=== PATIENT | female | born 1945 | race Caucasian/White ===

== ENCOUNTER → 2017-12-11 14:05 | Outpatient (CLI) | payer OTHER, SELFPAY ==
[2017-12-11 14:37] LABS: International Normalized Ratio 3.3; Prothrombin Time (Protime)PT. 33.5 SECONDS (11.7-14.9)
== END ==
PROVIDERS: Family Provider Internal Medicine; PCP Internal Medicine; Referring Provider Internal Medicine; Visit Provider Internal Medicine
DX: I74.9 Embolism and thrombosis of unspecified artery (principal)
CPT/HCPCS: 85610

== ENCOUNTER → 2017-12-17 11:11 | Outpatient (CLI) | payer MEDICARE, SELFPAY ==
[2017-12-17 12:35] LABS: Prothrombin Time (Protime)PT. 43.6 SECONDS (11.7-14.9)
[2017-12-17 12:43] LABS: International Normalized Ratio 4.6
== END ==
PROVIDERS: Family Provider Internal Medicine; PCP Internal Medicine; Referring Provider Internal Medicine; Visit Provider Internal Medicine
DX: I74.9 Embolism and thrombosis of unspecified artery (principal)
CPT/HCPCS: 85610

== ENCOUNTER → 2017-12-21 16:08 | Outpatient (CLI) | payer MEDICARE, SELFPAY ==
[2017-12-21 16:51] LABS: International Normalized Ratio 1.9
== END ==
PROVIDERS: Family Provider Internal Medicine; PCP Internal Medicine; Referring Provider Internal Medicine; Visit Provider Internal Medicine
DX: I74.9 Embolism and thrombosis of unspecified artery (principal)
CPT/HCPCS: 85610

== ENCOUNTER → 2018-09-10 | Outpatient (CLI) | payer MEDICARE, SELFPAY ==
[2018-09-10 13:00] LABS: International Normalized Ratio 2.2; Prothrombin Time (Protime)PT. 24.8 SECONDS (11.7-14.9)
== END | disposition home or self-care (01) ==
LOC: LABSPEC 12:14
PROVIDERS: Family Provider Internal Medicine; PCP Internal Medicine; Referring Provider Clinical Nurse Specialist; Visit Provider Clinical Nurse Specialist
DX: I74.9 Embolism and thrombosis of unspecified artery (principal)
CPT/HCPCS: 85610

== ENCOUNTER → 2021-07-07 | Outpatient (CLI) | payer MEDICARE, SELFPAY ==
[2021-07-07 10:21] LABS: International Normalized Ratio 1.7; Prothrombin Time (Protime)PT. 19.5 SECONDS (11.7-14.9)
== END | disposition home or self-care (01) ==
LOC: LABSPEC 09:33
PROVIDERS: PCP Internal Medicine; Visit Provider Internal Medicine
DX: Z86.718 Personal history of other venous thrombosis and embolism (principal)
CPT/HCPCS: 85610

== ENCOUNTER 2023-03-19 10:05 | Emergency (ER) | payer MEDICARE, SELFPAY ==
[2023-03-19 10:07] VITALS: BP 103/59; PULSE 111; RESP 16; TEMP 36.8; O2SAT 100; BMI 20.3
--- NOTE | 2023-03-19 10:37 | EX.ED.DYSGE1 ---
HPI History of Present Illness Chief Complaint: Cough Informant: patient Onset/Context/Timing Onset: Today Context: Sudden Onset Quality: Bright red Location: Sputum Worsened by: Nothing Relieved by: Cough drops Narrative Narrative: Patient presents with hemoptysis that began today. Patient states she has had a cough for the past 2 months but today she noted some blood in her sputum. Patient states it was bright red. Patient states it is approximately 1 tablespoon. Patient states it has been constant. Patient states that she has also had a sore throat for the past several days. Patient states this improves with taking cough drops. Patient states nothing makes her symptoms any worse. Patient denies any fevers or chills. Patient states she has a history of histoplasmosis. [facility] Medical History (Updated 03/19/23 @ 15:[address] Bob Elias, ) Histoplasmosis Pulmonary embolism Home Medications adalimumab 40 mg/0.4 mL subcutaneous pen kit (Humira(CF) Pen) mg subcut 03/19/23 [History Last Taken Unknown] albuterol sulfate 90 mcg/actuation aerosol inhaler inhalation 03/19/23 [History Last Taken Unknown] budesonide-formoterol HFA 160 mcg-4.5 mcg/actuation aerosol inhaler (Symbicort) inhalation 03/19/23 [History Last Taken Unknown] fluticasone propionate 50 mcg/actuation nasal spray,suspension intranasal 03/19/23 [History Last Taken Unknown] gabapentin 300 mg capsule 300 mg PO Q12H 03/19/23 [History Last Taken Unknown] irbesartan 150 mg-hydrochlorothiazide 12.5 mg tablet 1 tab PO DAILY 03/19/23 [History Last Taken Unknown] itraconazole 100 mg capsule mg 03/19/23 [History Last Taken Unknown] naproxen 500 mg tablet 500 mg PO Q12H 03/19/23 [History Last Taken Unknown] pantoprazole 40 mg tablet,delayed release 40 mg PO DAILY 03/19/23 [History Last Taken Unknown] tiotropium bromide 2.5 mcg/actuation mist for inhalation (Spiriva Respimat) inhalation 03/19/23 [History Last Taken Unknown] warfarin 5 mg tablet mg 03/19/23 [History Last Taken Unknown] Allergy/AdvReac Type Severity Reaction Status Date / Time Penicillins Allergy Severe Anaphylaxis Verified 03/19/23 10:10 Surgical History (Updated 03/19/23 @ 11:[address] Bob Elias DO) Hx of foot surgery Social History Smoking Status: Never smoker ROS ROS ED Constitutional Constitutional ED: Denies chills or fever(s) Eyes Eyes: Denies blurry vision or change in vision ENT ENT ED: Reports sore throat; Denies rhinorrhea Cardiovascular Cardiovascular: Denies chest pain or palpitations Respiratory/Chest Respiratory/Chest: Reports cough and sputum; Denies dyspnea Gastrointestinal Gastrointestinal: Denies nausea or vomiting Genitourinary Genitourinary ED: Denies dysuria or hematuria Musculoskeletal Musculoskeletal: Denies back pain or neck pain Integumentary Denies abscess or rash Neurologic Neurologic: Denies headache(s) or weakness Allergic/Immunologic Allergic/Immunologic ED: Denies mouth swelling or urticaria EXAM Physical Exam Const Vital Signs: 03/19/23 10:07 03/19/23 10:06 03/19/23 13:22 Temperature 98.3 F Temperature Source Temporal Pulse Rate 111 H Respiratory Rate 16 Respiratory Effort Normal Respiratory Depth Normal Respiratory Pattern Normal Blood Pressure 103/59 L 102/74 Blood Pressure Mean 73 83 Pulse Ox 100 Oxygen Delivery Method Room Air Room Air Positive well nourished and well developed General Appearance ED: well developed and NAD HEENT Reports moist mucous membranes Neck supple and no JVD Resp normal respiratory effort and clear to auscultation bilaterally Cardio regular rate and regular rhythm GI non-tender and non-distended Palpation: soft Neuro oriented x3, CN's II-XII intact bilaterally and no sensory deficits noted Sensorium / Orientation: alert Motor Exam: strength 5/5 throughout Psych mental status grossly normal MDM MDM MDM Narrative Medical decision making narrative: Differential diagnosis includes pulmonary embolism, lung mass, pneumonia, pneumothorax, viral infection, and coagulopathy. CBC will be obtained to assess for leukocytosis and anemia. Basic metabolic profile will be obtained to assess for electrolyte abnormality and renal function. CTA of the chest will be obtained to assess for pulmonary embolism and lung mass. PT with INR and PTT will be obtained to assess for coagulopathy. Lab Data Attestation: I reviewed the patient's lab results. Lab results narrative: CBC was reviewed. Hemoglobin is 9.0 and hematocrit was 27.7. Platelets were slightly low at 145. Basic metabolic profile was reviewed. Sodium was slightly low at 130. BUN was slightly elevated at 34. Creatinine was normal. PT with INR and PTT were reviewed. Pro time was 78 and INR is 9.4. PTT was 109.6. COVID-19 PCR was reviewed and was positive. Influenza PCR was reviewed and was negative for influenza A and influenza B. RSV PCR was reviewed and was negative. Labs: Laboratory Results - last 24 hr 03/19/23 11:25 WBC 6.4 RBC 3.40 L Hgb 9.0 L Hct 27.7 L MCV 81.5 MCH 26.5 L MCHC 32.5 RDW Std Deviation 48.3 H RDW Coeff of Catarino 16.3 H Plt Count 145 L MPV 10.3 Immature Gran % (Auto) 1.600 H Neut % (Auto) 68.8 Lymph % (Auto) 15.1 L [place] % (Auto) 10.9 H Eos % (Auto) 2.5 Baso % (Auto) 1.1 H Absolute Neuts (auto) 4.4 Absolute Lymphs (auto) 0.97 Nucleated RBC % 0 PT 78.0 H INR 9.4 H* APTT 109.6 H* Sodium 130 L Potassium 4.5 Chloride 100 Carbon Dioxide 26.0 Anion Gap 4 L BUN 34 H Creatinine 0.95 Estim Creat Clear Calc 44.81 Est GFR (MDRD) Af Amer 73 Est GFR (MDRD) Non-Af 61 BUN/Creatinine Ratio 35.7 H Glucose 89 Calcium 9.1 Radiography Diagnostic Testing: Clinical Impression(s) from Imaging Studies Chest CTA 03/19/23 11:06 IMPRESSION: Prominent reticular nodular pattern in both lungs worse in the upper lobes with left lower lobe and right upper lobe pulmonary nodule. Lymphangitic spread should be ruled out. No evidence of pulmonary embolism. Small amount of free intraperitoneal air. A dedicated CT scan of the pelvis recommended for further evaluation. Electronically Signed: Geo Ni MD at 12:39 EST , Abdomen/Pelvis CT 03/19/23 12:45 IMPRESSION: Abnormal appearance of the transverse colon as described with evidence of pneumatosis in the wall of the colon especially along its proximal portion in the region of the hepatic flexure. An inflammatory process versus a possible vascular compromise should be ruled out. Free intraperitoneal air. Sigmoid diverticulosis with mild degree inflammatory changes in the sigmoid mesocolon. Sludge and possible tiny gallstones in the gallbladder lumen. Electronically Signed: Geo Ni MD at 13:47 EST , CTA of the chest was obtained. There is a diffuse reticular nodular pattern in both lungs. There is no evidence of pulmonary embolism noted. There is a small amount of free intraperitoneal air noted. This was interpreted by the radiologist and was also independently reviewed by myself. Because of the free air noted on the CT scan of the chest, CT scan of the abdomen and pelvis was obtained. There is abnormal appearance of the transverse colon with evidence of pneumatosis in the wall of the colon especially at the hepatic flexure. There is free intraperitoneal air noted. There is sigmoid diverticulosis with mild inflammatory changes. There is sludge and a possible small gallstone in the gallbladder lumen. This was interpreted by the radiologist was also dependently reviewed by myself. Treatment and Re-Evaluation :: Patient was advised of her findings. Patient was given a dose of vitamin K prior to CT results. Patient was started on meropenem. Case was discussed with Dr. Camacho from general surgery. He recommended transferring the patient because of the elevated INR and limitations of blood bank resources here. Patient requested transfer to [facility]. Transfer line was contacted. Case was discussed with Dr. Lugo at [facility]. He accepted the patient and requested patient be transferred to the emergency department there. Case was discussed with emergency department physician. He accepted the patient to be transferred there. Patient was ordered type and screen. Patient was also ordered a unit of fresh frozen plasma. Patient will be transferred to [facility]. Patient and family understood and were agreeable with the plan. All questions were answered. Critical Care Time Critical Care Time: Yes Critical care time (excluding procedures): 30-74 minutes (38), Including time spent:, Discussing w/Patient &/or Family/Network Engineer Administrator, Discussing w/Consultants, Arranging Admission or Transfer and Performing Direct Patient Care at Bedside Discharge Plan Triage Chief Complaint: Cough ED Provider: Bob Elias Dx/Rx/DC Orders Clinical Impression: COVID-19, Coagulopathy, Colitis, Bowel perforation Prescriptions: No Action gabapentin 300 mg capsule 300 mg PO Q12H albuterol sulfate 90 mcg/actuation HFA aerosol inhaler INHALATION fluticasone propionate 50 mcg/actuation spray,suspension INTRANASAL budesonide-formoterol [Symbicort] 160-4.5 mcg/actuation HFA aerosol inhaler INHALATION Humira(CF) Pen 40 mg/0.4 mL pen injector kit SUBCUT irbesartan-hydrochlorothiazide 150-12.5 mg tablet 1 tab PO DAILY itraconazole 100 mg capsule naproxen 500 mg tablet 500 mg PO Q12H pantoprazole 40 mg tablet,delayed release (DR/EC) 40 mg PO DAILY warfarin 5 mg tablet Spiriva Respimat 2.5 mcg/actuation mist INHALATION Primary Care Provider: Deyanira Pak Referrals: Deyanira Pak MD [Primary Care Provider] - Disposition Disposition: Acute Care Hospital Discharge Location: [facility] [place] [facility]
--- NOTE | 2023-03-19 11:06 | CT_ITS ---
STUDY: CTA CHEST REASON FOR EXAM: Female, 77 years old. Hemoptysis. Sore throat. Six-week history of hoarseness. History of histoplasmosis. RADIATION DOSAGE (If Supplied By Facility): CTDIvol = ( 4.21 ) mGy, DLP = ( 263.59 ) mGycm TECHNIQUE: The examination was performed with the intravenous administration of IV 75mL [id number]. Post-processing of the angiographic images was performed, with multiplanar reformation and 3D reconstruction. Individualized dose optimization techniques were used for this CT. COMPARISON: None. FINDINGS: Normal enhancement of the main pulmonary artery and right and left pulmonary arteries. Normal enhancement of the bilateral peripheral pulmonary arteries. There is no demonstrated pulmonary embolism. Normal thoracic aorta and visualized great vessels. There is no demonstrated aortic dissection. There are calcifications of the coronary arteries. Normal mediastinum. Normal hilar regions. Normal visualized trachea and bronchi. The lungs are well expanded. There is a 1.1 cm PICC line nodule in the peripheral lateral aspect of the left lower lobe as seen on axial image #82. There is a 5.7 mm noncalcified nodule in the anterior aspect of the right lung apex as seen on axial image #197. There is evidence of a prominent reticular nodular pattern in both lungs worse in the upper lobes. Normal chest wall structures. There are degenerative changes of thoracic spine. Moderate splenomegaly. Small amount of free intraperitoneal air. Correlation with a dedicated CT scan of the abdomen and pelvis is recommended for further evaluation. Moderate splenomegaly. CT/CTA Chest W/WO Contrast IMPRESSION: Prominent reticular nodular pattern in both lungs worse in the upper lobes with left lower lobe and right upper lobe pulmonary nodule. Lymphangitic spread should be ruled out. No evidence of pulmonary embolism. Small amount of free intraperitoneal air. A dedicated CT scan of the pelvis recommended for further evaluation. Electronically Signed: Geo Ni MD at 12:39 EST ,
[2023-03-19] MEDS: 0.9% Normal Saline (1000mL) 1,000 ML 1000 ML IV (11:27)
[2023-03-19 11:37] LABS: Absolute Lymphocyte Count 0.97 X10^3/uL (0.83-4.51); Absolute Neutrophil Count 4.4 X10^3/uL (2.0-7.7); Basophil# 0.07 X10^3/uL; Basophil% 1.1 % (0-1); Eosinophil# 0.16 X10^3/uL; Eosinophils% 2.5 % (0-5); Hematocrit 27.7 % (37-47); Lymphocyte # 0.97 X10^3/ul (0.83-4.51); Lymphocyte % 15.1 % (19-41); Mean Corp Hgb Conc 32.5 g/dL (32-36); Mean Corpuscular Hgb 26.5 pg (27.0-32.0); Mean Corpuscular Volume 81.5 fL (81-99); Mean Platelet Vol. 10.3 fl (6.2-12.0); Monocyte% 10.9 % (0-10); NRBC Flagged by Analyzer 0 % (0-5); Neutrophil # 4.43 X10^3/uL (2.7-7.7); Neutrophil % 68.8 % (47-70); Platelet Count 145 K/mm3 (150-450); RBC Distribution Width CV 16.3 % (11.6-14.6); RBC Distribution Width SD 48.3 fl (35.1-43.9); White Blood Count 6.4 K/mm3 (4.4-11.0)
[2023-03-19 12:00] LABS: Anion Gap 4 (5-15); BUN 34 mg/dL (7-18); BUN/Creat Ratio 35.7 RATIO (10-20); Calcium,Total 9.1 mg/dL (8.5-10.1); Chloride 100 mmol/L (98-107); Creatinine, Serum 0.95 mg/dL (0.55-1.02); EST Glomerular Filtration Rate 61 mL/min (>60); Est Glom Filt Rate - Afr Amer 73 mL/min (>60); Estimated Creatinine Clearance 44.81 ml/min; Glucose 89 mg/dL (74-106); Potassium 4.5 mmol/L (3.5-5.1); Sodium Level 130 mmol/L (136-145)
[2023-03-19 12:01] LABS: International Normalized Ratio 9.4; Partial Thromboplast Time 109.6 Seconds (24.1-36.2)
--- OUTSIDE RECORDS SUMMARY | 2023-03-19 12:26 | XMS RPT_ITS | CCD ---
Author Name Unknown Address [address] [place] [address] Organization [facility] Care Team Providers Care Yard Inspector Name Role Phone Mykel Santamaria Unavailable Unavailable Mykel Santamaria Unavailable Unavailable UNKNOWN, REFERR Unavailable Unavailable Will Hurley Attending Unavailable PROVIDER, UNKNOWN Referring Unavailable No, PCP Primary Care Unavailable Claudine Durán MD Primary Care Provider Will Hurley Unavailable Gold Colón RN Unavailable UnavailClaudine Cannon MD Primary Care Provider Will Hurley Unavailable Katarzyna MITCHELL, Gold M Unavailable UnavailWill Vaz Unavailable [phone] Rachel MITCHELL, Lulú Unavailable Gold Colón RN M Unavailable UnavailClaudine Cannon MD Primary Care Provider Will Hurley Unavailable [phone] Rachel RN, Lulú Unavailable Rachel RN, Lulú Unavailable Paul RN, Ilda Unavailable Kvmalena RN, Ilda Unavailable Rachel RN, Lulú Unavailable ADRI ZARAGOZA Referring Unavailable LUIZ DURÁNA Adam Primary Care Unavailable FLORENCE TERRY Referring Unavailable CLAUDINE DURÁN Primary Care Unavailable FLORENCE TERRY Referring Unavailable FLORENCE TERRY Attending Unavailable TALAMPAS, CLAUDINE D Primary Care Unavailable TALAMPAS, CLAUDINE D Primary Care Unavailable TALAMPAS, CLAUDINE D Primary Care Unavailable TALAMPAS, CLAUDINE D Primary Care Unavailable TALAMPAS, CLAUDINE D Primary Care Unavailable TALAMPAS, CLAUDINE D Primary Care Unavailable CARIASTRINAI Referring Unavailable TALAMPAS, CLAUDINE D Primary Care Unavailable TALAMPAS, CLAUDINE D Primary Care Unavailable TALAMPAS, CLAUDINE D Primary Care Unavailable TALAMPAS, CLAUDINE D Primary Care Unavailable TALAMPAS, CLAUDINE D Primary Care Unavailable TALAMPAS, CLAUDINE D Primary Care Unavailable TALAMPAS, CLAUDINE D Primary Care Unavailable CARIASTRINAI Attending Unavailable TALAMPAS, CLAUDINE D Primary Care Unavailable TALAMPAS, CLAUDINE D Primary Care Unavailable FLORENCE TERRY Referring Unavailable TALAMPAS, CLAUDINE D Primary Care Unavailable CARIASJIMBO Attending Unavailable TALAMPAS, CLAUDINE D Primary Care Unavailable TALAMPAS, CLAUDINE D Primary Care Unavailable TALAMPAS, CLAUDINE D Primary Care Unavailable FLORENCE TERRY Attending Unavailable TALAMPAS, CLAUDINE D Primary Care Unavailable ROQUE ZACARIAS Referring Unavailable TALAMPAS, CLAUDINE D Primary Care Unavailable TALAMPAS, CLAUDINE D Primary Care Unavailable TALAMPAS, CLAUDINE D Primary Care Unavailable TALAMPAS, CLAUDINE D Primary Care Unavailable JEANA SOMMERS Referring Unavailable RON BELL Attending Unavailable TALAMPAS, CLAUDINE D Primary Care Unavailable RACHELLE LAI Attending Unavailable TALAMPAS, CLAUDINE D Primary Care Unavailable TALAMPAS, CLAUDINE D Primary Care Unavailable TALAMPAS, CLAUDINE D Primary Care Unavailable TALAMPAS, CLAUDINE D Primary Care Unavailable JOHANNA BENITES Referring Unavailable TALAMPAS, CLAUDINE D Primary Care Unavailable FLORENCE TERRY Referring Unavailable JOHANNA BENITES Attending Unavailable TALAMPAS, CLAUDINE D Primary Care Unavailable TALAMPAS, CLAUDINE D Primary Care Unavailable TALAMPAS, CLAUDINE D Primary Care Unavailable TALAMPAS, CLAUDINE D Primary Care Unavailable CARIAS, JIMBO Attending Unavailable TALAMPAS, CLAUDINE D Primary Care Unavailable TALAMPAS, CLAUDINE D Primary Care Unavailable CARIAS, JIMBO Referring Unavailable TALAMPAS, CLAUDINE D Primary Care Unavailable TALAMPAS, CLAUDINE D Primary Care Unavailable RACHELLE LAI Referring Unavailable CLAUDINE DURÁN Primary Care Unavailable CLAUDINE DURÁN Primary Care Unavailable Allergies Allergy Classification Reported Allergen(s) Allergy Type Date of Onset Reaction(s) Facility (20 sources) Penicillins; Translations: [PENICILLINS] Propensity to adverse reactions (disorder) [address] [place] [address] Repository Medications Current Medications Medication Drug Class(es) Dates Sig (Normalized) Sig (Original) doxycycline hyclate 100 mg oral tablet (4 sources) Tetracycline-clas s Drug Start: 02-07-2023 End: 02-17-2023 take 1 tablet by mouth twice daily doxycycline (VIBRA-TABS) 100 mg tablet Take 1 tablet by mouth two times a day for 10 days. 20 tablet 0 02/07/2023 02/17/2023 Active Completed/Discontinued Medications Medication Drug Class(es) Dates Sig (Normalized) Sig (Original) 0.8 ml adalimumab 50 mg/ml auto-injector (20 sources) Tumor Necrosis Factor [place] Start: 03-20-2017 HUMIRA PEN 40 mg/0.8 mL pnkt Inject 40 mg subcutaneously. Every other week. 0 03/20/2017 Active Problems Active Problems Problem Classification Problem Date Documented Date Episodic/Chronic Acquired foot deformities (5 sources) Hammer toe; Translations: [Other hammer toe(s) (acquired), left foot] Chronic Acute cerebrovascular disease (3 sources) Subdural hemorrhage; Translations: [Subdural hemorrhage] Onset: 10-02-2014 Chronic Aortic and peripheral arterial embolism or thrombosis (15 sources) Vascular disorder; Translations: [Embolism and thrombosis of unspecified artery] Onset: 11-23-2006 01-02-2017 Chronic Cardiac and circulatory congenital anomalies (20 sources) Aortic valve stenosis; Translations: [Congenital stenosis of aortic valve] Onset: 04-26-2018 04-26-2018 Chronic Chronic obstructive pulmonary disease and bronchiectasis (20 sources) Bronchiectasis; Translations: [Bronchiectasis, uncomplicated] Onset: 04-26-2019 04-26-2019 Chronic Chronic ulcer of skin (20 sources) Ulcer of toe; Translations: [Non-pressure chronic ulcer of other part of left foot limited to breakdown of skin] Onset: 07-11-2022 Chronic Deficiency and other anemia (20 sources) Iron deficiency anemia due to blood loss; Translations: [Iron deficiency anemia secondary to blood loss (chronic)] Onset: 01-24-2018 01-24-2018 Chronic Deficiency and other anemia (1 source) Anemia, unspecified; Translations: [Relative anemia] Onset: 01-04-2023 Episodic Disorders of lipid metabolism (1 source) Raised low density lipoprotein cholesterol; Translations: [Pure hypercholesterolemia, unspecified] Chronic Esophageal disorders (20 sources) Gastroesophageal reflux disease; Translations: [Gastro-esophageal reflux disease without esophagitis] Onset: 03-06-2005 03-06-2005 Chronic Essential hypertension (20 sources) Essential hypertension; Translations: [Essential (primary) hypertension] Onset: 03-07-2015 03-07-2015 Chronic Gout and other crystal arthropathies (2 sources) Calcium pyrophosphate deposition disease; Translations: [Other chondrocalcinosis, unspecified site] Chronic Menopausal disorders (20 sources) Atrophic vaginitis; Translations: [Postmenopausal atrophic vaginitis] Onset: 03-06-2013 03-06-2013 Chronic Osteoporosis (1 source) Senile osteoporosis; 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 without current pathological fracture] 11-09-2022 Chronic Other infections; including parasitic (1 source) Personal history of other infectious and parasitic diseases; Translations: [History of COVID-19] Episodic Other liver diseases (1 source) Abnormal levels of other serum enzymes; Translations: [Acid phosphatase elevated] Onset: 02-02-2023 Episodic Other lower respiratory disease (2 sources) Cough; Translations: [Cough] Episodic Other lower respiratory disease (4 sources) Multiple nodules of lung; Translations: [Other nonspecific abnormal finding of lung field] Episodic Other nervous system disorders (20 sources) Meralgia paresthetica; Translations: [Meralgia paresthetica, unspecified lower limb] Onset: 03-06-2005 03-06-2005 Chronic Other non-traumatic joint disorders (20 sources) Arthropathy; Translations: [Arthropathy, unspecified] Onset: 12-05-2006 12-05-2006 Chronic Other non-traumatic joint disorders (2 sources) Effusion, right wrist; Translations: [Effusion, right wrist] Onset: 02-28-2018 Episodic Other non-traumatic joint disorders (2 sources) Hip pain; Translations: [Pain in left hip] 10-27-2022 Episodic Other screening for suspected conditions (not mental disorders or infectious disease) (1 source) Abnormal findings on diagnostic imaging of other specified body structures; Translations: [Abnormal CT of the chest] Onset: 03-08-2023 Chronic Other skin disorders (1 source) Dystrophia unguium; Translations: [Nail dystrophy] Episodic Other upper respiratory disease (1 source) Bronchospasm; Translations: [Acute bronchospasm] Episodic Other upper respiratory infections (1 source) Chronic sinusitis; Translations: [Chronic sinusitis, unspecified] Chronic Retinal detachments; defects; vascular occlusion; and retinopathy (1 source) Nonexudative age-related macular degeneration; Translations: [Nonexudative age-related macular degeneration, bilateral, early dry stage] Chronic Rheumatoid arthritis and related disease (20 sources) Rheumatoid arthritis of multiple joints; Translations: [Rheumatoid arthritis with rheumatoid factor of multiple sites without organ or systems involvement] Onset: 03-07-2015 06-06-2016 Chronic Skin and subcutaneous tissue infections (1 source) Infection of toe ; Translations: [Local infection of the skin and subcutaneous tissue, unspecified] Episodic Spondylosis; intervertebral disc disorders; other back problems (20 sources) Herniation of nucleus pulposus of lumbar intervertebral disc; Translations: [Other intervertebral disc displacement, lumbar region] Onset: 03-20-2011 03-20-2011 Chronic Unclassified (1 source) Acute cough; Translations: [Acute cough] Onset: 02-07-2023 Viral infection (1 source) Verruca vulgaris; Translations: [Other viral warts] Episodic Past or Other Problems Problem Classification Problem Date Documented Da te Episodic/Chronic Immunizations and screening for infectious disease (2 sources) Vaccination needed; Translations: [Encounter for immunization] Onset: 10-27-2022 Episodic Mycoses (20 sources) Histoplasmosis; Translations: [Histoplasmosis, unspecified] Onset: 03-02-2018 03-03-2018 Episodic Other acquired deformities (20 sources) Lumbar spondylolisthesis; Translations: [Spondylolisthesis, lumbar region] Onset: 07-30-2017 07-30-2017 Episodic Other aftercare (20 sources) Long-term current use of anticoagulant; Translations: [joint terminal attack controller (current) use of 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] Onset: 04-01-2009 12-10-2014 Episodic Other aftercare (1 source) joint terminal attack controller (current) use of 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; Translations: [Chronic anticoagulation] Onset: 07-11-2022 Episodic Other connective tissue disease (7 sources) Enthesopathy of hip region; Translations: [Other specified enthesopathies of unspecified lower limb, excluding foot] Onset: 01-04-2009 01-04-2009 Episodic Other connective tissue disease (20 sources) Ganglion cyst; Translations: [Ganglion, unspecified site] Onset: 08-17-2014 08-17-2014 Episodic Other liver diseases (20 sources) Elevated liver enzymes level; Translations: [Abnormal levels of other serum enzymes] Onset: 04-01-2009 04-01-2009 Episodic Other lower respiratory disease (20 sources) Nodule of lung; Translations: [Solitary pulmonary nodule] Onset: 03-11-2019 03-11-2019 Episodic Other lower respiratory disease (1 source) Other nonspecific abnormal finding of lung field; Translations: [Lung nodules] Onset: 07-20-2022 Episodic Other non-traumatic joint disorders (20 sources) Pain in right hip joint; Translations: [Pain in right hip] Onset: 05-05-2016 05-05-2016 Episodic Other non-traumatic joint disorders (1 source) Pain in left hip; Translations: [Hip pain, acute, left] Onset: 11-09-2022 Episodic Other screening for suspected conditions (not mental disorders or infectious disease) (10 sources) Patient encounter status; Translations: [Encounter for screening mammogram for malignant neoplasm of breast] Onset: 04-14-2022 Episodic Other upper respiratory disease (20 sources) Voice finding; Translations: [Other voice and resonance disorders] Onset: 03-06-2005 03-06-2005 Episodic Other upper respiratory disease (1 source) Acute bronchospasm; Translations: [Cough due to bronchospasm] Onset: 07-11-2022 Episodic Phlebitis; thrombophlebitis and thromboembolism (20 sources) History of recurrent deep vein thrombosis; Translations: [Personal history of other venous thrombosis and embolism] Onset: 10-29-2016 10-29-2016 Episodic Spondylosis; intervertebral disc disorders; other back problems (20 sources) Lumbago co-occurrent with right-side sciatica; Translations: [Lumbago with sciatica, right side] Onset: 05-05-2016 05-05-2016 Episodic Results Test Name Value Interpretation Reference Range Facil ity Vital Signs Date Time Vital Sign Value Performing Clinician Faci lity 12-20-2023 10:36-0500 Body temperature 98.6 [degF] Adri Callow NEEDLE BAR MOLDER.CHUTE PULLER Work Phone: [facility] 02-07-2023 10:36-0500 Body weight 59.69 kg Adri Callow NEEDLE BAR MOLDER.CHUTE PULLER Work Phone: [facility] 02-07-2023 10:36-0500 Diastolic blood pressure 82 mm[Hg] Adri Callow NEEDLE BAR MOLDER.CHUTE PULLER Work Phone: [facility] 02-07-2023 10:36-0500 Heart rate 87 /min Adri Callow NEEDLE BAR MOLDER.CHUTE PULLER Work Phone: [facility] 02-07-2023 10:36-0500 Respiratory rate 18 /min Adri Callow NEEDLE BAR MOLDER.CHUTE PULLER Work Phone: [facility] 02-07-2023 10:36-0500 SaO2% (BldA) [Mass fraction] 98 % Adri Callow NEEDLE BAR MOLDER.CHUTE PULLER Work Phone: [facility] 02-07-2023 10:36-0500 Systolic blood pressure 134 mm[Hg] Adri Callow NEEDLE BAR MOLDER.CHUTE PULLER Work Phone: [facility] 01-04-2023 10:33-0500 Body weight 58.06 kg Jimbo Carias NEEDLE BAR MOLDER.TROLLEY CAR OPERATOR Work Phone: [facility] 01-04-2023 10:33-0500 Diastolic blood pressure 75 mm[Hg] Jimbo Carias NEEDLE BAR MOLDER.TROLLEY CAR OPERATOR Work Phone: [facility] 01-04-2023 10:33-0500 Heart rate 77 /min Jimbo Carias NEEDLE BAR MOLDER.TROLLEY CAR OPERATOR Work Phone: [facility] 01-04-2023 10:33-0500 Respiratory rate 16 /min Jimbo Carias NEEDLE BAR MOLDER.TROLLEY CAR OPERATOR Work Phone: [facility] 01-04-2023 10:33-0500 Systolic blood pressure 128 mm[Hg] Jimbo Carias NEEDLE BAR MOLDER.TROLLEY CAR OPERATOR Work Phone: [facility] 10-27-2022 09:03-0400 Body weight 59.42 kg Jimbo Carias NEEDLE BAR MOLDER.TROLLEY CAR OPERATOR Work Phone: [facility] 10-27-2022 09:03-0400 Diastolic blood pressure 66 mm[Hg] Jimbo Carias NEEDLE BAR MOLDER.TROLLEY CAR OPERATOR Work Phone: [facility] 10-27-2022 09:03-0400 Heart rate 76 /min Jimbo Carias NEEDLE BAR MOLDER.TROLLEY CAR OPERATOR Work Phone: [facility] 10-27-2022 09:03-0400 Respiratory rate 16 /min Jimbo Carias NEEDLE BAR MOLDER.TROLLEY CAR OPERATOR Work Phone: [facility] 10-27-2022 09:03-0400 Systolic blood pressure 119 mm[Hg] Jimbo Carias NEEDLE BAR MOLDER.TROLLEY CAR OPERATOR Work Phone: [facility] 08-29-2022 09:26-0400 Body height 162.6 cm Rachelle Lai NEEDLE BAR MOLDER.CHUTE PULLER Work Phone: [facility] 08-29-2022 09:26-0400 Body weight 58.51 kg Rachelle Lai NEEDLE BAR MOLDER.CHUTE PULLER Work Phone: [facility] 08-29-2022 09:26-0400 Diastolic blood pressure 78 mm[Hg] Rachelle Lai NEEDLE BAR MOLDER.CHUTE PULLER Work Phone: [facility] 08-29-2022 09:26-0400 Heart rate 75 /min Rachelle Lai NEEDLE BAR MOLDER.CHUTE PULLER Work Phone: [facility] 08-29-2022 09:26-0400 SaO2% (BldA) [Mass fraction] 98 % Rachelle Lai NEEDLE BAR MOLDER.CHUTE PULLER Work Phone: [facility] 08-29-2022 09:26-0400 Systolic blood pressure 142 mm[Hg] Rachelle Lai NEEDLE BAR MOLDER.CHUTE PULLER Work Phone: [facility] 07-20-2022 09:28-0400 Body weight 58.06 kg Florence Terry MD Work Phone: [facility] 07-20-2022 09:28-0400 Diastolic blood pressure 72 mm[Hg] Florence Terry MD Work Phone: [facility] 07-20-2022 09:28-0400 Heart rate 50 /min Florence Terry MD Work Phone: [facility] 07-20-2022 09:28-0400 Respiratory rate 17 /min Florence Terry MD Work Phone: [facility] 07-20-2022 09:28-0400 SaO2% (BldA) [Mass fraction] 100 % Florence Terry MD Work Phone: [facility] 07-20-2022 09:28-0400 Systolic blood pressure 122 mm[Hg] Florence Terry MD Work Phone: [facility] 03-13-2022 10:13-0500 Body temperature 96.69 [degF] Claudine Durán MD Work Phone: [facility] 03-13-2022 10:13-0500 Body weight 59.56 kg Claudine Durán MD Work Phone: [facility] 03-13-2022 10:13-0500 Diastolic blood pressure 68 mm[Hg] Claudine Durán MD Work Phone: [facility] 03-13-2022 10:13-0500 Heart rate 75 /min Claudine Durán MD Work Phone: [facility] 03-13-2022 10:13-0500 Respiratory rate 18 /min Claudine Durán MD Work Phone: [facility] 03-13-2022 10:13-0500 SaO2% (BldA) [Mass fraction] 100 % Claudine Durán MD Work Phone: [facility] 03-13-2022 10:13-0500 Systolic blood pressure 112 mm[Hg] Claudine Durán MD Work Phone: [facility] 11-29-2021 10:07-0400 Body weight 58.51 kg Florence Terry MD Work Phone: [facility] 11-29-2021 10:07-0400 Diastolic blood pressure 76 mm[Hg] Florence Terry MD Work Phone: [facility] 11-29-2021 10:07-0400 Heart rate 92 /min Florence Terry MD Work Phone: [facility] 11-29-2021 10:07-0400 Respiratory rate 18 /min Florence Terry MD Work Phone: [facility] 11-29-2021 10:07-0400 SaO2% (BldA) [Mass fraction] 97 % Florence Terry MD Work Phone: [facility] 11-29-2021 10:07-0400 Systolic blood pressure 122 mm[Hg] Florence Terry MD Work Phone: [facility] 11-10-2021 09:22-0400 Body weight 60.33 kg Jimbo Carias NEEDLE BAR MOLDER.TROLLEY CAR OPERATOR Work Phone: [facility] 11-10-2021 09:22-0400 Diastolic blood pressure 80 mm[Hg] Jimbo Carias NEEDLE BAR MOLDER.TROLLEY CAR OPERATOR Work Phone: [facility] 11-10-2021 09:22-0400 Heart rate 76 /min Jimbo Carias NEEDLE BAR MOLDER.TROLLEY CAR OPERATOR Work Phone: [facility] 11-10-2021 09:22-0400 Respiratory rate 16 /min Jimbo Carias NEEDLE BAR MOLDER.TROLLEY CAR OPERATOR Work Phone: [facility] 11-10-2021 09:22-0400 Systolic blood pressure 152 mm[Hg] Jimbo Carias NEEDLE BAR MOLDER.TROLLEY CAR OPERATOR Work Phone: [facility] 09-20-2021 13:45-0400 Body weight 58.51 kg Jimbo Carias NEEDLE BAR MOLDER.TROLLEY CAR OPERATOR Work Phone: [facility] 09-20-2021 13:45-0400 Diastolic blood pressure 64 mm[Hg] Jimbo Carias NEEDLE BAR MOLDER.TROLLEY CAR OPERATOR Work Phone: [facility] 09-20-2021 13:45-0400 Heart rate 85 /min Jimbo Carias NEEDLE BAR MOLDER.TROLLEY CAR OPERATOR Work Phone: [facility] 09-20-2021 13:45-0400 SaO2% (BldA) [Mass fraction] 96 % Jimbo Carias NEEDLE BAR MOLDER.TROLLEY CAR OPERATOR Work Phone: [facility] 09-20-2021 13:45-0400 Systolic blood pressure 128 mm[Hg] Jimbo Carias NEEDLE BAR MOLDER.TROLLEY CAR OPERATOR Work Phone: [facility] 08-12-2021 11:01-0400 Body height 162.6 cm William Ambriz DO Work Phone: [facility] 08-12-2021 11:01-0400 Body weight 59.42 kg William Ambriz DO Work Phone: [facility] 08-12-2021 11:01-0400 Diastolic blood pressure 74 mm[Hg] William Ambriz DO Work Phone: [facility] 08-12-2021 11:01-0400 Heart rate 72 /min William Ambriz DO Work Phone: [facility] 08-12-2021 11:01-0400 SaO2% (BldA) [Mass fraction] 99 % William Ambriz DO Work Phone: [facility] 08-12-2021 11:01-0400 Systolic blood pressure 130 mm[Hg] William Ambriz DO Work Phone: [facility] 07-11-2021 08:10-0400 Body weight 58.06 kg Claudine Durán MD Work Phone: [facility] 07-11-2021 08:10-0400 Diastolic blood pressure 74 mm[Hg] Claudine Durán MD Work Phone: [facility] 07-11-2021 08:10-0400 Heart rate 76 /min Claudine Durán MD Work Phone: [facility] 07-11-2021 08:10-0400 Systolic blood pressure 122 mm[Hg] Claudine Durán MD Work Phone: [facility] 2021 14:57-0400 Body height 162.6 cm Julio Andujar MD Work Phone: [facility] 2021 14:57-0400 Body weight 58.33 kg Julio Andujar MD Work Phone: [facility] 2021 14:57-0400 Diastolic blood pressure 67 mm[Hg] Julio Andujar MD Work Phone: [facility] 2021 14:57-0400 Heart rate 98 /min Julio Andujar MD Work Phone: [facility] 2021 14:57-0400 Respiratory rate 14 /min Julio Andujar MD Work Phone: [facility] 2021 14:57-0400 SaO2% (BldA) [Mass fraction] 99 % Julio Andujar MD Work Phone: [facility] 2021 14:57-0400 Systolic blood pressure 144 mm[Hg] Julio Andujar MD Work Phone: [facility] 03-14-2021 08:08-0500 Body height 162.6 cm Claudine Durán MD Work Phone: [facility] 03-14-2021 08:08-0500 Body temperature 97.5 [degF] Claudine Durán MD Work Phone: [facility] 03-14-2021 08:08-0500 Body weight 58.06 kg Claudine Durán MD Work Phone: [facility] 03-14-2021 08:08-0500 Diastolic blood pressure 62 mm[Hg] Claudine Durán MD Work Phone: [facility] 03-14-2021 08:08-0500 Heart rate 87 /min Claudine Durán MD Work Phone: [facility] 03-14-2021 08:08-0500 Respiratory rate 14 /min Claudine Durán MD Work Phone: [facility] 03-14-2021 08:08-0500 SaO2% (BldA) [Mass fraction] 99 % Claudine Durán MD Work Phone: [facility] 03-14-2021 08:08-0500 Systolic blood pressure 118 mm[Hg] Claudine Durán MD Work Phone: [facility] Encounters Encounter Date Encounter Type Care Provider Facility Start: 03-08-2023 End: 03-09-2023 ambulatory JOHANNA BENITES Facility:[facility] Start: 03-03-2023 End: 03-03-2023 ambulatory CLAUDINE DURÁN Facility:[facility] Start: 03-02-2023 End: 03-02-2023 ambulatory CLAUDINE DURÁN Facility:[facility] Start: 02-23-2023 End: 02-23-2023 ambulatory FLORENCE TERRY Facility:[facility] Start: 02-21-2023 End: 02-21-2023 ambulatory FLORENCE TERRY Facility:[facility] Start: 02-07-2023 End: 02-07-2023 ambulatory CLAUDINE DURÁN Facility:[facility] Start: 02-07-2023 End: 02-07-2023 Patient encounter procedure Adri Zaragoza NEEDLE BAR MOLDER.CHUTE PULLER Work Phone: [facility] Procedures Date Procedure Procedure Detail Performing Clinician Start: 02-07-2023 COVID & INFLUENZA A/ B & RSV NAAT, ROUTINE Adri Zaragoza NEEDLE BAR MOLDER.CHUTE PULLER Work Phone: Start: 01-04-2023 [employer] COVI D-19 VACCINE ( SEASON) AGE 12+ YR Jimbo Carais NEEDLE BAR MOLDER.TROLLEY CAR OPERATOR Work Phone: Start: 01-04-2023 Prothrombin time Jimbo Carias NEEDLE BAR MOLDER.TROLLEY CAR OPERATOR Work Phone: Start: 11-17-2022 Screening digital br east tomosynthesis bi Jimob Carias NEEDLE BAR MOLDER.TROLLEY CAR OPERATOR Work Phone: Start: 10-27-2022 INFLUENZA VACCINE, P RSV FREE, AGE 65+ YR, HIGH DOSE, QUADRIVALENT (FLUZONE HIGH-DOSE) Jimbo Carias NEEDLE BAR MOLDER.TROLLEY CAR OPERATOR Work Phone: Start: 08-29-2022 Ecg routine ecg w/le ast 12 lds i&r only [facility] Provider Start: 07-20-2022 Ct thorax w/o contra st material Florence Terry MD Work Phone: Start: 11-10-2021 INFLUENZA SEASONAL QUADRIVALENT HIGH DOSE AGE 65+ Jimbo Carias NEEDLE BAR MOLDER.TROLLEY CAR OPERATOR Work Phone: Start: 11-10-2021 PFIZER-BIONTECH COVI D-19 BIVALENT BOOSTER VACCINE, AGE 12+ YR Jimbo Sans NEEDLE BAR MOLDER.TROLLEY CAR OPERATOR Work Phone: Start: 11-10-2021 Adult depression scr eening assessment Jimbo Carias NEEDLE BAR MOLDER.TROLLEY CAR OPERATOR Work Phone: Start: 10-18-2021 Radex foot complete minimum 3 views Yonas Aspen Work Phone: Start: 10-12-2021 Diagnostic mammograp hy computer-aided detcj uni [facility] NEEDLE BAR MOLDER.CHUTE PULLER Work Phone: Start: 09-05-2021 End: 09-05-2021 Screening mammography bi 2-view breast inc cad [facility] NEEDLE BAR MOLDER.CHUTE PULLER Work Phone: Start: 07-11-2021 PFIZER-BIONTECH COVI D-19 VACCINE, AGE 12+ YR (ARIAS TOP) Claudine Durán MD Work Phone: Start: 07-07-2021 Lipid 1996 panel - S luisito or Plasma Ashly Shay RN Start: 07-13-2020 Adult depression scr eening assessment Nara Talavera Start: 06-01-2020 Mammography Nara Medina opart Start: 03-24-2019 Colonoscopy Nara cobos Plan of Treatment Date Care Activity Detail Author Start: 11-05-2029 Urine microalbumin profile [facility] Start: 03-24-2029 Colonoscopy COLONOSCOPY [facility] Start: 03-24-2029 COLORECTAL CANCER SCREENING COLORECTAL CANCER SCREENING [facility] Start: 03-24-2029 Screening for malignant neoplasm of colon [facility] Start: 05-19-2027 Lipid 1996 panel - Serum or Plasma Lipid Screening [facility] Start: 07-07-2026 Lipid panel Lipid Screening [facility] Start: 07-07-2026 LIPID SCREEN LIPID SCREEN [facility] Start: 01-05-2024 BP Controlled (<130/80) BP Controlled (<130/80) [facility] Start: 10-28-2023 BP CONTROLLED (<130/80) BP CONTROLLED (<130/80) [facility] Start: 07-21-2023 BP CONTROLLED (<130/80) BP CONTROLLED (<130/80) [facility] Start: 07-08-2023 DIABETES SCREEN DIABETES SCREEN [facility] Start: 07-08-2023 Diabetes Screening Diabetes Screening [facility] Start: 03-13-2023 ANNUAL PCP TEAM CHRONIC DISEASE VISIT ANNUAL PCP TEAM CHRONIC DISEASE VISIT [facility] Start: 03-13-2023 BP CONTROLLED (<130/80) BP CONTROLLED (<130/80) [facility] Start: 03-01-2023 Covid-19 Vaccine () Covid-19 Vaccine () [facility] Start: 01-23-2023 End: 08-23-2023 Ct thorax w/o contrast material CT CHEST WO IVCON Radiology Routine Lung nodules Bronchiectasis without complication (HCC) Expected: 01/23/2023, Expires: 08/23/2023 [facility] Work Phone: Immunizations Immunization Date Immunization Notes Care Provider Galindo leyva 01-04-2023 COVID-19 vaccine, ag e 12+ yr, season (PFIZER-BIONTECH) Jimbo Carias NEEDLE BAR MOLDER.TROLLEY CAR OPERATOR Work Phone: [facility] Work Phone: 10-27-2022 influenza (HD-IIV4) vaccine, age 65+ yr, high dose, quadrivalent, PF (FLUZONE HIGH-DOSE) Jimbo Carias APRN.TROLLEY CAR OPERATOR Work Phone: [facility] Work Phone: 11-10-2021 COVID-19 booster vaccine, age 12+ yr, bivalent (PFIZER-BIONTECH) Jimbo Carias NEEDLE BAR MOLDER.TROLLEY CAR OPERATOR Work Phone: [facility] Work Phone: 11-10-2021 influenza, high-dose , quadrivalent vaccine (FLUZONE HIGH DOSE QUADRIVALENT) Jimbo Carias APRN.TROLLEY CAR OPERATOR Work Phone: [facility] Work Phone: 07-11-2021 COVID-19 vaccine, ag e 12+ yr (PFIZER-BIONTECH - ARIAS TOP) Antico Ws Work Phone: [facility] 11-21-2020 COVID-19 original vaccine, age 12+ yr, monovalent (PFIZER-BIONTECH - PURPLE TOP) Claudine Durán MD Work Phone: [facility] 11-09-2020 COVID-19 vaccine, ag e 12+ yr (PFIZER-BIONTECH - PURPLE TOP) [facility] 11-09-2020 influenza, high-dose , quadrivalent vaccine (FLUZONE HIGH DOSE QUADRIVALENT) [facility] Work Phone: 05-13-2020 COVID-19 vaccine, ag e 12+ yr (PFIZER-BIONTECH - PURPLE TOP) [facility] Work Phone: 04-22-2020 COVID-19 vaccine, ag e 12+ yr (PFIZER-BIONTECH - PURPLE TOP) [facility] Work Phone: 11-06-2019 influenza, high-dose , quadrivalent vaccine (FLUZONE HIGH DOSE QUADRIVALENT) [facility] Work Phone: 11-06-2019 tetanus and diphther ia toxoids, adsorbed, preservative free, for adult use (5 Lf of tetanus toxoid and 2 Lf of diphtheria toxoid) [facility] Work Phone: 11-28-2018 zoster vaccine recombinant [facility] 10-26-2018 influenza, high dose seasonal, preservative-free [facility] 07-23-2018 zoster vaccine recombinant [facility] 11-27-2017 influenza, high dose seasonal, preservative-free [facility] 02-07-2017 pneumococcal polysaccharide vaccine, 23 valrandall Durán MD Work Phone: [facility] 01-31-2017 influenza, high dose seasonal, preservative-free [facility] 12-13-2016 pneumococcal polysaccharide vaccine, 23 ravi Durán MD Work Phone: [facility] 11-28-2016 pneumococcal polysaccharide vaccine, 23 valrandall Durán MD Work Phone: [facility] 12-13-2015 influenza, high dose seasonal, preservative-free [facility] 11-10-2014 influenza, high dose seasonal, preservative-free [facility] 03-30-2014 pneumococcal conjuga te vaccine, 13 valent [facility] 12-08-2013 pneumococcal polysaccharide vaccine, 23 valrandall Durán MD Work Phone: [facility] 11-24-2013 influenza, seasonal, injectable [facility] 03-24-2013 pneumococcal polysaccharide vaccine, 23 valent [facility] 11-18-2012 influenza virus vacc ine, unspecified formulation [facility] Work Phone: 11-10-2011 influenza virus vacc ine, unspecified formulation [facility] 11-23-2010 influenza virus vacc ine, unspecified formulation [facility] 10-07-2009 tetanus toxoid, redu amarilis diphtheria toxoid, and acellular pertussis vaccine, adsorbed [facility] 10-29-2008 influenza virus vacc ine, unspecified formulation [facility] 09-22-1999 diphtheria and tetan us toxoids, adsorbed for pediatric use [facility] Work Phone: Payers Date Payer Category Payer Medicare AETNA MEDICARE A ETNA MEDICARE PPO [id number] 2021-Present [phone] [address] [place] [address] PPO [id number] 2021 Medicare AETNA MEDICARE A ETNA MEDICARE PPO [id number] 2021-Present [phone] [address] [place] [address] PPO [id number] 2021 Medicare [id number] 1945 Unknown [id number] Medicare [id number] Private Health Insurance Social History Date Type Detail Facility Start: 08-28-2019 End: 11-10-2021 Tobacco smoking status NHIS Ex-smoker [facility] End: 02-19-1989 History of tobacco use Current smoker [facility] End: 02-19-1989 History of tobacco use Cigarette Smoker [facility] Start: 05-03-2021 End: 02-07-2023 Alcohol intake Current drinker of alcohol (finding) [facility] Start: 11-28-2019 End: 03-06-2022 History SDOH Alcohol Frequency 2 [facility] Start: 11-28-2019 End: 03-06-2022 History SDOH Alcohol Std Drinks 1 [facility] Start: 03-31-2019 End: 03-06-2022 History SDOH Social Connections Jewish 3 [facility] Start: 03-31-2019 End: 03-06-2022 History SDOH Social Connections Living 4 [facility] Start: 07-28-2019 End: 03-06-2022 History SDOH Physical Activity DPW 5 [facility] Start: 03-31-2019 Education 18 [facility] Start: 08-28-2019 End: 11-10-2021 Tobacco Comment Late heavy smoker. [facility] Start: 1945 Sex Assigned At Female [facility] Start: 05-02-2021 End: 12-31-2021 Exposure to SARS-CoV-2 (event) Not sure [facility] Work Phone: Start: 08-28-2019 End: 06-22-2022 Cigarettes smoked current (pack per day) - Reported 1 [facility] Start: 08-28-2019 End: 11-10-2021 Tobacco use and exposure Smokeless tobacco non-user [facility] Start: 03-06-2022 End: 06-22-2022 Social connection and isolation panel [facility] Do you belong to any clubs or organizations such as druze groups, unions, fraternal or athletic groups, or school groups? Yes [facility] Are you now , , , , never or living with a partner? [facility] How often to you hav e a drink containing alcohol? Monthly or less [facility] How many standard dr inks containing alcohol do you have on a typical day? 1 or 2 [facility] How often do you hav e 6 or more drinks on 1 occasion? Never [facility] How hard is it for y ou to pay for the very basics like food, housing, medical care, and heating Not hard at all [facility] Do you feel stress - tense, restless, nervous, or anxious, or unable to sleep at night because your mind is troubled all the time - these days [OSQ] Not at all [facility] (I/We) worried whekimberly er (my/our) food would run out before (I/we) got money to buy more. Never true [facility] In the past 12 month s, was there a time when you were not able to pay the mortgage or rent on time? No [facility] Start: 03-04-2019 Gender identity Identifies as female gender (finding) [facility] Start: 03-04-2019 Sexual orientation Heterosexual (finding) [facility] Goals Date Patient Goal Desired Activity /State Personal health goal Clinical Notes 03-08-2018 to 03-03-2023 Adri Zaragoza APRN.CNP - 02/07/2023 10:52 AM Flex Brown RN - 02/02/2023 3:19 PM Flex Brown RN - 02/02/2023 9:47 AM Flex Brown RN - 01/17/2023 3:02 PM EST Note Date & Type Note Facility 03-03-2023 Note HNO ID: [id number] Author: NYASIA WICK APRN.SANTY Service: ? Author Type: Nurse Practitioner Type: Progress Notes Filed: 03/03/2023 11:55 Note Text: CC: Patient presents with: Sore Throat: ST x 3 weeks HPI: Haydee Bustamante is a 77 year old female who presents to the office with complaint of sore throat for 3 weeks. Symptoms are worsening Associated symptoms includes sore throat. Denies fever, nausea, vomiting , and diarrhea. Treatments tried include nothing so far. with no relief of symptoms. Sick contacts: unknown. History of asthma, frequent episodes of bronchitis, chronic bronchitis, bronchiectasis or COPD: No Smoker: No Seasonal/environmental allergies: No The ROS is otherwise negative. The patient's pmh, medications, allergies, and past visits are reviewed. PHYSICAL EXAM: BP 124/76 Pulse 85 Temp 36.9 ?C (98.5 ?F) (Tympanic) Resp 18 Wt 57.3 kg (126 lb 6.4 oz) SpO2 97% BMI 21.70 kg/m? General appearance: alert, cooperative, pleasant, in no acute distress Head: Normocephalic Eyes: EOM's intact, conjunctiva pink and moist, no icterus, sclera white, non-injected Ears: Right ear: External ear/canal- Normal, TM - clear with good landmarks. Left ear: External ear/canal- Normal, TM - clear with good landmarks Oropharynx:mild erythema, without exudates present Heart: Negative. RRR without obvious murmur, gallop, or rubs. No ectopy. Lungs: mild wheezing throughout. PAST MEDICAL HISTORY Diagnosis Date Anemia Bone marrow involvement with histoplasmosis Bronchiectasis ([facility]) COPD (chronic obstructive pulmonary disease) ([facility]) Disseminated histoplasmosis Colitis, immunosuppression, 01/2018. Diverticulosis of colon (without mention of hemorrhage) Diverticulosis DVT, recurrent, lower extremity, acute ([facility]) 12/10/2014 Esophageal reflux Hiatal hernia 02/25/2018 Hypertension Lung nodule Personal history of unspecified urinary disorder 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 rheumatoid factor ([facility]) 03/07/2015 Dr. Hurley ([facility]) Unspecified hemorrhoids without mention of complication Hemorrhoids PAST SURGICAL HISTORY Procedure Laterality Date COLONOSCOPY FLX DX W/COLLJ SPEC WHEN PFRMD 10/2003 Colonoscopy COLONOSCOPY FLX DX W/COLLJ SPEC WHEN PFRMD 05/18/2014 Colonoscopy COLONOSCOPY FLX DX W/COLLJ SPEC WHEN PFRMD 02/25/2018 Colonoscopy COLONOSCOPY FLX DX W/COLLJ SPEC WHEN PFRMD 03/24/2019 Colonoscopy ESOPHAGOGASTRODUODENOSCOPY TRANSORAL DIAGNOSTIC 02/25/2018 EGD FILTER PLACEMENT (VENA CAVA) 12/28/2006 FOOT SURGERY HX Right 2022 Bunion surgery INTRO. OF CATH SUP/INF VENA CAVA 12/28/2006 LUMBAR SPINE FUSN,POST INTERBODY 2012 Dr. Armando at [facility]. Diskectomy and laminectomy PAST SURGICAL HISTORY OF 03/07/1999 removal facial lesion PAST SURGICAL HISTORY OF 08/17/2014 excision soft tissue mass left index finger TONSILLECTOMY PRIMARY/SECONDARY TRANSCATH RETRIEVAL,PERCUT 12/28/2006 ALLERGIES Penicillins MEDICATIONS Mucus Clearing Device (QUAKE VIBRATORY PEP) deviProvide 1 deviceDisp: 1 EachRfl: 0 budesonide-formoterol (SYMBICORT) 160-4.5 mcg/actuation inhalerUSE 2 INHALATIONS TWICE A DAY INSTRUCTEDDisp: 30.6 gRfl: 3 gabapentin (NEURONTIN) 300 mg capsuleTake 1 capsule by mouth two times a day.Disp: 180 capsuleRfl: 3 warfarin (COUMADIN) 5 mg tablettake 1 AND 1/2 tablets by mouth once daily ON SUNDAY, SUNDAY, SUNDAY, SUNDAY AND SUNDAY and 1 tablet by mouth once daily ON SUNDAY AND SUNDAYDisp: 30 tabletRfl: 0 warfarin (COUMADIN) 5 mg tabletTake 7.5 mg , Sun,Sun, Sun, Sun; and 5 mg on Sunday and SundayDisp: 180 tabletRfl: 3 (Patient taking differently: Take 5 mg by mouth once daily.) FOLIC ACID ORALTake by mouth.Disp: Rfl: tiotropium bromide (SPIRIVA RESPIMAT) 2.5 mcg/actuation inhalerInhale 2 Puffs as instructed once daily. Inhale two puffs once daily.Disp: 3 EachRfl: 3 Irbesartan-hydroCHLOROthiazide 150-12.5 mg per tabletTake 1 tablet by mouth once daily.Disp: 90 tabletRfl: 3 naproxen (NAPROSYN) 500 mg tabletTake 1 tablet by mouth twice daily as needed. Take with foodDisp: 120 tabletRfl: 3 fluticasone (FLONASE) 50 mcg/actuation nasal sprayUse 1 [place] in each nostril once daily.Disp: 3 EachRfl: [address] (PROTONIX) 40 mg tabletTake 1 tablet by mouth once daily.Disp: 90 tabletRfl: 3 albuterol HFA (PROAIR HFA) 90 mcg/actuation inhalerInhale 2 Puffs as instructed every 4 hours as needed.Disp: 1 EachRfl: 2 vit A,C,X-Kxpw-Wohhkq (OCUVITE PRESERVISION) 2,148 mcg-113 mg-45 mg-17.4mg tabTake 2 tablets by mouth daily with breakfast.Disp: Rfl: potassium chloride ER (KLOR-CON M20) 20 mEq tabletTake 1 tablet by mouth twice daily.Disp: 180 tabletRfl: 3 leucovorin (LEUCOVORIN) 15 mg tabletTake 15 mg by mouth once daily.Disp: Rfl: HUMIRA PEN 40 mg/0.8 mL pnktInject 40 mg subcutaneously. Every other week. Disp: Rfl: methotrexate 2.5 mg tabletTake 2.5 mg by mout (more content not included)... [facility] 03-02-2023 Note HNO ID: [id number] Author: FLEX MEANS RN Service: ? Author Type: Registered Nurse Type: Progress Notes Filed: 03/02/2023 16:09 Note Text: pcp agrees with information [facility] 03-02-2023 Note HNO ID: [id number] Author: FLEX MEANS RN Service: ? Author Type: Registered Nurse Type: Progress Notes Filed: 03/02/2023 16:09 Note Text: patient had inr completed at [facility] patients inr is 1.7 (patients inr range is 1.7-2.2) patient is currently taking 5mg daily patients last dose change was on 01/10/23 due to a high level of 2.9 (dose at that time was 7.5mg Tues,Sat,Sun and 5mg all other days) patient has had no changes in medication and no missed doses and no change in diet Advised patient to continue on the same dose(s) and that they would only be contacted regarding dosage and follow up instructions after review with provider, if a change is needed. Written instructions given and patient verbalized understanding. Presently scheduled in 4 weeks (03/30/23) for follow up INR. [facility] 02-23-2023 Note HNO ID: [id number] Author: JOHANNA BENITES PA-C Service: ? Author Type: Physician Forensic Investigator Type: Progress Notes Filed: 02/23/2023 14:58 Note Text: Patient: Haydee Bustamante PCP: Claudine Durán MD CC: follow up HPI: Haydee Bustamante 77 year old female former 10 pack year smoker with PMH significant for RA (Humira), HTN, h/o disseminated Histoplasmosis, bronchiectasis, VTE, pulmonary nodules, and . CT chest in July 2022 demonstrated stable left lower lobe nodule with a new cluster of nodules in right lower lobe. Patient instructed to consistently use mucus clearing techniques with bronchopulmonary hygiene. Follw up CT chest 02/21/2022 demonstrates interval development of innumerable micronodules throughout the lungs in an almost miliary distribution, most prominently in upper lobes. . Current maintenance therapy with Symbicort and Spiriva. Today, patient reports that she started with increased coughing around Thanksgiving. She was seen in [facility] 02/07 and treated with Doxycycline for 10 days. Symptoms improved with antibiotics, but did not resolve. Typically cough is non-productive, but occasionally produces white phlegm. No hemoptysis. No fevers or chills. Currently has sore throat. No wheezing, chest pain or SOB. Covid test negative. Has not been using Acapella or using Mucinex on a regular basis. Has been off of Methotrexate for at least a month secondary to increased liver enzymes. PAST MEDICAL HISTORY Diagnosis Date Anemia Bone marrow involvement with histoplasmosis Bronchiectasis (HCC) COPD (chronic obstructive pulmonary disease) (HCC) Disseminated histoplasmosis Colitis, immunosuppression, 01/2018. Diverticulosis of colon (without mention of hemorrhage) Diverticulosis DVT, recurrent, lower extremity, acute ([facility]) 12/10/2014 Esophageal reflux Hiatal hernia 02/25/2018 Hypertension Lung nodule Personal history of unspecified urinary disorder 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 rheumatoid factor ([facility]) 03/07/2015 Dr. Hurley ([facility]) Unspecified hemorrhoids without mention of complication Hemorrhoids Allergies: Penicillins Hives budesonide-formoterol (SYMBICORT) 160-4.5 mcg/actuation inhalerUSE 2 INHALATIONS TWICE A DAY INSTRUCTEDDisp: 30.6 gRfl: 3 gabapentin (NEURONTIN) 300 mg capsuleTake 1 capsule by mouth two times a day.Disp: 180 capsuleRfl: 3 warfarin (COUMADIN) 5 mg tablettake 1 AND 1/2 tablets by mouth once daily ON SUNDAY, SUNDAY, SUNDAY, SUNDAY AND SUNDAY and 1 tablet by mouth once daily ON SUNDAY AND SUNDAYDisp: 30 tabletRfl: 0 warfarin (COUMADIN) 5 mg tabletTake 7.5 mg , Sun,Sun, Sun, Sun; and 5 mg on Sunday and SundayDisp: 180 tabletRfl: 3 FOLIC ACID ORALTake by mouth.Disp: Rfl: tiotropium bromide (SPIRIVA RESPIMAT) 2.5 mcg/actuation inhalerInhale 2 Puffs as instructed once daily. Inhale two puffs once daily.Disp: 3 EachRfl: 3 Irbesartan-hydroCHLOROthiazide 150-12.5 mg per tabletTake 1 tablet by mouth once daily.Disp: 90 tabletRfl: 3 naproxen (NAPROSYN) 500 mg tabletTake 1 tablet by mouth twice daily as needed. Take with foodDisp: 120 tabletRfl: 3 fluticasone (FLONASE) 50 mcg/actuation nasal sprayUse 1 [place] in each nostril once daily.Disp: 3 EachRfl: [address] (PROTONIX) 40 mg tabletTake 1 tablet by mouth once daily.Disp: 90 tabletRfl: 3 albuterol HFA (PROAIR HFA) 90 mcg/actuation inhalerInhale 2 Puffs as instructed every 4 hours as needed.Disp: 1 EachRfl: 2 vit A,C,X-Vmfz-Hzsnlt (OCUVITE PRESERVISION) 2,148 mcg-113 mg-45 mg-17.4mg tabTake 2 tablets by mouth daily with breakfast.Disp: Rfl: potassium chloride ER (KLOR-CON M20) 20 mEq tabletTake 1 tablet by mouth twice daily.Disp: 180 tabletRfl: 3 leucovorin (LEUCOVORIN) 15 mg tabletTake 15 mg by mouth once daily.Disp: Rfl: HUMIRA PEN 40 mg/0.8 mL pnktInject 40 mg subcutaneously. Every other week. Disp: Rfl: methotrexate 2.5 mg tabletTake 2.5 mg by mouth every Sunday. PT takes 2 tablets in am and 1 tablets in pmDisp: 12 tabletRfl: 0 Cholecalciferol, Vitamin D3, 1,000 unit ORAL CapTake 1 capsule by mouth once daily.Disp: 1 capsuleRfl: 0 omega-3 fatty acids/vitamin e(FISH OIL 1,000 MG CAP)Take one(1) capsule daily.Disp: Rfl: 0 THERAPEUTIC MULTIVITAMIN TABTake one(1) tablet daily.Disp: Rfl: 0 Social History Tobacco Use Smoking status: Former Packs/day: 1.00 Years: 10.00 Additional pack years: 0.00 Total pack years: 10.00 Types: Cigarettes Quit date: 02/19/1989 Years since quittin.0 Smokeless tobacco: Never Tobacco comments: Late heavy smoker. Vaping Use Vaping Use: Never used Substance Use Topics Alcohol use: Yes Comment: occasional Drug use: No Family History Problem Relation Age of Onset Cancer Mother brain PAST SURGICAL HISTORY Procedure Laterality Date COLONOSCOPY FLX DX W/COLLJ SPEC WHEN PFRMD 10/2003 Colonoscopy COLONOSCOPY FLX DX W/ (more content not included)... [facility] 02-21-2023 Note HNO ID: [id number] Author: Faviola Anthony RT(R) Service: ? Author Type: Jewel Inspector Type: Progress Notes Filed: 02/21/2023 3:59 PM Note Text: Radiology Service Progress Note PATIENT NAME: Haydee Bustamante DATE OF SERVICE: February 21, 2023 TIME: 3:59 PM PATIENT IDENTITY VERIFICATION COMPLETED USING TWO (2) IDENTIFIERS: Name and Date of confirmed by patient verbally. FALL SCREENING: Has the patient had 2 falls in the last year or 1 fall with injury or currently using an Ambulatory Assistive Device (Walker, Cane, Wheelchair, Crutches, etc.)? No PATIENT GENDER DATA: Female. status: : No status: NO. PATIENT RELEVANT IMPLANT DATA REVIEWED: Yes RADIOLOGY DEPARTMENT: CT; Exam(s) Completed: Chest PERIPHERAL IV DATA: Not applicable SIGNED BY: RT Maryann(R) February 21, 2023 3:59 PM [facility] 02-14-2023 Note Patient Outreach ([facility] [place]) HAYDEE BUSTAMANTE ([id number]) 1945 F Date Time Provider Department 02/14/23 ILDA MILLER During your visit today, we recorded the following information about you: Ilda Miller RN 02/14/2023 9:29 AM Signed CDM Telephonic Outreach Provider Action/SHAYNE N/A Follow up cough. Contacted for: Routine Telephonic Outreach Contact made with patient: Yes Patient identified by name and date of . Discussed care with patient Are you experiencing any new or worsening symptoms you need to talk about today? No -Feeling better. Has not coughed today. Taking doxycycline per [facility]-Last dose 02/16/23. Speaking in complete sentences during call. Denies wheezing. States I'm never short of breath. Based on education general manager, the following disposition is advised: No symptoms or symptoms present, not severe. Routed to: No Action Needed PAN Education Provided this Outreach: No Upcoming appointments reviewed: Appointments for Next 60 Days Date Time Provider Location Dept Phone 02/21/2023 8:[address] [facility] ([facility]) Chito Ponce [phone] 02/21/2023 9:00 AM JOHANNA BENITES [phone] 03/02/2023 9:45 AM [facility] [phone] 04/09/2023 10:00 AM WILLIAM AMBRIZ [facility] [phone] Ilda Miller RN February 14, 2023 9:29 AM Allergies As of Date: 02/14/2023 Noted Allergy Reaction PENICILLINS 01/04/2005 4 - Hives Date Reviewed: 02/07/2023 Reviewed by: Susan Delaney LPN - Fully Assessed Reason for Visit: Community Monitoring Outreach [Other] Cmt: Telephonic Outreach CDM Home Monitoring Prescriptions as of 02/14/2023 - doxycycline (VIBRA-TABS) 100 mg tablet Take 1 tablet by mouth two times a day for 10 days. - budesonide-formoterol (SYMBICORT) 160-4.5 mcg/actuation inhaler USE 2 INHALATIONS TWICE A DAY INSTRUCTED - gabapentin (NEURONTIN) 300 mg capsule Take 1 capsule by mouth two times a day. - warfarin (COUMADIN) 5 mg tablet take 1 AND 1/2 tablets by mouth once daily ON SUNDAY, SUNDAY, SUNDAY, SUNDAY AND SUNDAY and 1 tablet by mouth once daily ON SUNDAY AND SUNDAY - warfarin (COUMADIN) 5 mg tablet Take 7.5 mg , Sun,Sun, Sun, Sun; and 5 mg on Sunday and Sunday - FOLIC ACID ORAL Take by mouth. - tiotropium bromide (SPIRIVA RESPIMAT) 2.5 mcg/actuation inhaler Inhale 2 Puffs as instructed once daily. Inhale two puffs once daily. - Irbesartan-hydroCHLOROthiazide 150-12.5 mg per tablet Take 1 tablet by mouth once daily. - naproxen (NAPROSYN) 500 mg tablet Take 1 tablet by mouth twice daily as needed. Take with food - fluticasone (FLONASE) 50 mcg/actuation nasal spray Use 1 [place] in each nostril once daily. - pantoprazole DR (PROTONIX) 40 mg tablet Take 1 tablet by mouth once daily. - albuterol HFA (PROAIR HFA) 90 mcg/actuation inhaler Inhale 2 Puffs as instructed every 4 hours as needed. - vit A,C,Q-Ljao-Lclzhw (OCUVITE PRESERVISION) 2,148 mcg-113 mg-45 mg-17.4mg tab Take 2 tablets by mouth daily with breakfast. - potassium chloride ER (KLOR-CON M20) 20 mEq tablet Take 1 tablet by mouth twice daily. - leucovorin (LEUCOVORIN) 15 mg tablet Take 15 mg by mouth once daily. - HUMIRA PEN 40 mg/0.8 mL pnkt Inject 40 mg subcutaneously. Every other week. - methotrexate 2.5 mg tablet Take 2.5 mg by mouth every Sunday. PT takes 2 tablets in am and 1 tablets in pm - Cholecalciferol, Vitamin D3, 1,000 unit ORAL Cap Take 1 capsule by mouth once daily. - omega-3 fatty acids/vitamin e(FISH OIL 1,000 MG CAP) Take one(1) capsule daily. - THERAPEUTIC MULTIVITAMIN TAB Take one(1) tablet daily. Facility-Administered Medications as of 02/14/2023 - perflutren lipid microspheres 1.3 mL in NaCl (PF) 0.9% 10 mL injection (DEFINITY) - sodium chloride 0.9 % (flush) 10 mL (BD POSIFLUSH) Meds Comments as of 03/05/2018: 03/05/18 The medications are managed by this patient by: PATIENT Muna Harris (Cushion Former) [facility] for terminal carman medications. 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 [facility] 02-14-2023 Note HNO ID: [id number] Author: Ilda Miller RN Service: ? Author Type: Registered Nurse Type: Progress Notes Filed: 02/14/2023 9:29 AM Note Text: CDM Telephonic Outreach Provider Action/FYI N/A Follow up cough. Contacted for: Routine Telephonic Outreach Contact made with patient: Yes Patient identified by name and date of . Discussed care with patient Are you experiencing any new or worsening symptoms you need to talk about today? No -Feeling better. Has not coughed today. Taking doxycycline per [facility]-Last dose 02/16/23. Speaking in complete sentences during call. Denies wheezing. States I'm never short of breath. Based on education general manager, the following disposition is advised: No symptoms or symptoms present, not severe. Routed to: No Action Needed PAN Education Provided this Outreach: No Upcoming appointments reviewed: Appointments for Next 60 Days Date Time Provider Location Dept Phone 02/21/2023 8:[address] [facility] (I-STAT) Chito Ponce [phone] 02/21/2023 9:00 AM [facility] [place] [phone] 03/02/2023 9:45 AM [facility] [phone] 04/09/2023 10:00 AM WILLIAM AMBRIZ [facility] [phone] Ilda Miller RN February 14, 2023 9:29 AM [facility] 02-07-2023 Note HNO ID: [id number] Author: Kathleen Alegria RT(R) Service: Radiology Author Type: Technologist Type: Progress Notes Filed: 02/07/2023 11:15 AM Note Text: Radiology Service Progress Note PATIENT NAME: Haydee Bustamante DATE OF SERVICE: February 07, 2023 TIME: 11:06 AM PATIENT IDENTITY VERIFICATION COMPLETED USING TWO (2) IDENTIFIERS: Name and Date of confirmed by patient verbally. FALL SCREENING: Has the patient had 2 falls in the last year or 1 fall with injury or currently using an Ambulatory Assistive Device (Walker, Cane, Wheelchair, Crutches, etc.)? No PATIENT GENDER DATA: Female. status: : No status: NO. PATIENT RELEVANT IMPLANT DATA REVIEWED: Yes RADIOLOGY DEPARTMENT: General X-ray: Exam(s) Completed: Chest X-Ray PERIPHERAL IV DATA: Not applicable SIGNED BY: RT Mariela(R) February 07, 2023 11:06 AM [facility] 02-07-2023 Note HNO ID: [id number] Author: Adri Zaragoza APRN.CHUTE PULLER Service: ? Author Type: Nurse Practitioner Type: Progress Notes Filed: 02/07/2023 12:06 PM Note Text: Subjective HPI Haydee presents today with 4 week hx of cough productive along with increased need of use of her albuterol inhailer over the last month. She is not aware of fever, she states there has been several times over the last month she has improved and she thought her sympoms were resolved and then they return. She is not aware of sick contacts. PAST MEDICAL HISTORY Diagnosis Date Anemia Bone marrow involvement with histoplasmosis Bronchiectasis ([facility]) COPD (chronic obstructive pulmonary disease) ([facility]) Disseminated histoplasmosis Colitis, immunosuppression, 01/2018. Diverticulosis of colon (without mention of hemorrhage) Diverticulosis DVT, recurrent, lower extremity, acute ([facility]) 12/10/2014 Esophageal reflux Hiatal hernia 02/25/2018 Hypertension Lung nodule Personal history of unspecified urinary disorder 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 rheumatoid factor ([facility]) 03/07/2015 Dr. Hurley ([facility]) Unspecified hemorrhoids without mention of complication Hemorrhoids PAST SURGICAL HISTORY Procedure Laterality Date COLONOSCOPY FLX DX W/COLLJ SPEC WHEN PFRMD 10/2003 Colonoscopy COLONOSCOPY FLX DX W/COLLJ SPEC WHEN PFRMD 05/18/2014 Colonoscopy COLONOSCOPY FLX DX W/COLLJ SPEC WHEN PFRMD 02/25/2018 Colonoscopy COLONOSCOPY FLX DX W/COLLJ SPEC WHEN PFRMD 03/24/2019 Colonoscopy ESOPHAGOGASTRODUODENOSCOPY TRANSORAL DIAGNOSTIC 02/25/2018 EGD FILTER PLACEMENT (VENA CAVA) 12/28/2006 FOOT SURGERY HX Right 2022 Bunion surgery INTRO. OF CATH SUP/INF VENA CAVA 12/28/2006 LUMBAR SPINE FUSN,POST INTERBODY 2012 Dr. Armando at [facility]. Diskectomy and laminectomy PAST SURGICAL HISTORY OF 03/07/1999 removal facial lesion PAST SURGICAL HISTORY OF 08/17/2014 excision soft tissue mass left index finger TONSILLECTOMY PRIMARY/SECONDARY TRANSCATH RETRIEVAL,PERCUT 12/28/2006 ALLERGIES Penicillins MEDICATIONS budesonide-formoterol (SYMBICORT) 160-4.5 mcg/actuation inhalerUSE 2 INHALATIONS TWICE A DAY INSTRUCTEDDisp: 30.6 gRfl: 3 gabapentin (NEURONTIN) 300 mg capsuleTake 1 capsule by mouth two times a day.Disp: 180 capsuleRfl: 3 warfarin (COUMADIN) 5 mg tablettake 1 AND 1/2 tablets by mouth once daily ON SUNDAY, SUNDAY, SUNDAY, SUNDAY AND SUNDAY and 1 tablet by mouth once daily ON SUNDAY AND SUNDAYDisp: 30 tabletRfl: 0 warfarin (COUMADIN) 5 mg tabletTake 7.5 mg , Sun,Sun, Sun, Sun; and 5 mg on Sunday and SundayDisp: 180 tabletRfl: 3 FOLIC ACID ORALTake by mouth.Disp: Rfl: tiotropium bromide (SPIRIVA RESPIMAT) 2.5 mcg/actuation inhalerInhale 2 Puffs as instructed once daily. Inhale two puffs once daily.Disp: 3 EachRfl: 3 Irbesartan-hydroCHLOROthiazide 150-12.5 mg per tabletTake 1 tablet by mouth once daily.Disp: 90 tabletRfl: 3 naproxen (NAPROSYN) 500 mg tabletTake 1 tablet by mouth twice daily as needed. Take with foodDisp: 120 tabletRfl: 3 fluticasone (FLONASE) 50 mcg/actuation nasal sprayUse 1 [place] in each nostril once daily.Disp: 3 EachRfl: [address] (PROTONIX) 40 mg tabletTake 1 tablet by mouth once daily.Disp: 90 tabletRfl: 3 albuterol HFA (PROAIR HFA) 90 mcg/actuation inhalerInhale 2 Puffs as instructed every 4 hours as needed.Disp: 1 EachRfl: 2 vit A,C,S-Lkqm-Cuksqm (OCUVITE PRESERVISION) 2,148 mcg-113 mg-45 mg-17.4mg tabTake 2 tablets by mouth daily with breakfast.Disp: Rfl: potassium chloride ER (KLOR-CON M20) 20 mEq tabletTake 1 tablet by mouth twice daily.Disp: 180 tabletRfl: 3 leucovorin (LEUCOVORIN) 15 mg tabletTake 15 mg by mouth once daily.Disp: Rfl: HUMIRA PEN 40 mg/0.8 mL pnktInject 40 mg subcutaneously. Every other week. Disp: Rfl: methotrexate 2.5 mg tabletTake 2.5 mg by mouth every Sunday. PT takes 2 tablets in am and 1 tablets in pmDisp: 12 tabletRfl: 0 Cholecalciferol, Vitamin D3, 1,000 unit ORAL CapTake 1 capsule by mouth once daily.Disp: 1 capsuleRfl: 0 omega-3 fatty acids/vitamin e(FISH OIL 1,000 MG CAP)Take one(1) capsule daily.Disp: Rfl: 0 THERAPEUTIC MULTIVITAMIN TABTake one(1) tablet daily.Disp: Rfl: 0 FAMILY HISTORY Problem Relation Age of Onset Cancer Mother brain Social History Tobacco Use Smoking status: Former Packs/day: 1.00 Years: 10.00 Additional pack years: 0.00 Total pack years: 10.00 Types: Cigarettes Quit date: 02/19/1989 Years since quittin.9 Smokeless tobacco: Never Tobacco comments: Late heavy smoker. Vaping Use Vaping Use: Never used Substance Use Topics Alcohol use: Yes Comment: occasional Drug use: No Review of Systems HENT: Positive for congestion. Respiratory: Positive for cough and shortness of breath (on occasion hx of COPD). All other systems reviewed and are negative. Objective Physical Exam Vitals and nursing n (more content not included)... [facility] 02-07-2023 History of Presen t illness Narrative Subjective HPI Haydee presents today with 4 week hx of cough productive along with increased need of use of her albuterol inhailer over the last month. She is not aware of fever, she states there has been several times over the last month she has improved and she thought her sympoms were resolved and then they return. She is not aware of sick contacts. PAST MEDICAL HISTORY Diagnosis Date Anemia Bone marrow involvement with histoplasmosis Bronchiectasis (HCC) COPD (chronic obstructive pulmonary disease) (HCC) Disseminated histoplasmosis Colitis, immunosuppression, 01/2018. Diverticulosis of colon (without mention of hemorrhage) Diverticulosis DVT, recurrent, lower extremity, acute (HCC) 12/10/2014 Esophageal reflux Hiatal hernia 02/25/2018 Hypertension Lung nodule Personal history of unspecified urinary disorder 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 rheumatoid factor (HCC) 03/07/2015 Dr. Hurley ([facility]) Unspecified hemorrhoids without mention of complication Hemorrhoids PAST SURGICAL HISTORY Procedure Laterality Date COLONOSCOPY FLX DX W/COLLJ SPEC WHEN PFRMD 10/2003 Colonoscopy COLONOSCOPY FLX DX W/COLLJ SPEC WHEN PFRMD 05/18/2014 Colonoscopy COLONOSCOPY FLX DX W/COLLJ SPEC WHEN PFRMD 02/25/2018 Colonoscopy COLONOSCOPY FLX DX W/COLLJ SPEC WHEN PFRMD 03/24/2019 Colonoscopy ESOPHAGOGASTRODUODENOSCOPY TRANSORAL DIAGNOSTIC 02/25/2018 EGD FILTER PLACEMENT (VENA CAVA) 12/28/2006 FOOT SURGERY HX Right 2022 Bunion surgery INTRO. OF CATH SUP/INF VENA CAVA 12/28/2006 LUMBAR SPINE FUSN,POST INTERBODY 2012 Dr. Armando at [facility]. Diskectomy and laminectomy PAST SURGICAL HISTORY OF 03/07/1999 removal facial lesion PAST SURGICAL HISTORY OF 08/17/2014 excision soft tissue mass left index finger TONSILLECTOMY PRIMARY/SECONDARY <AGE 14 TRANSCATH RETRIEVAL,PERCUT 12/28/2006 ALLERGIES Penicillins MEDICATIONS budesonide-formoterol (SYMBICORT) 160-4.5 mcg/actuation inhaler^USE 2 INHALATIONS TWICE A DAY INSTRUCTED^Disp: 30.6 g^Rfl: 3 gabapentin (NEURONTIN) 300 mg capsule^Take 1 capsule by mouth two times a day.^Disp: 180 capsule^Rfl: 3 warfarin (COUMADIN) 5 mg tablet^take 1 AND 1/2 tablets by mouth once daily ON SUNDAY, SUNDAY, SUNDAY, SUNDAY AND SUNDAY and 1 tablet by mouth once daily ON SUNDAY AND SUNDAY^Disp: 30 tablet^Rfl: 0 warfarin (COUMADIN) 5 mg tablet^Take 7.5 mg , Sun,Sun, Sun, Sun; and 5 mg on Sunday and Sunday^Disp: 180 tablet^Rfl: 3 FOLIC ACID ORAL^Take by mouth.^Disp: ^Rfl: tiotropium bromide (SPIRIVA RESPIMAT) 2.5 mcg/actuation inhaler^Inhale 2 Puffs as instructed once daily. Inhale two puffs once daily.^Disp: 3 Each^Rfl: 3 Irbesartan-hydroCHLOROthiazide 150-12.5 mg per tablet^Take 1 tablet by mouth once daily.^Disp: 90 tablet^Rfl: 3 naproxen (NAPROSYN) 500 mg tablet^Take 1 tablet by mouth twice daily as needed. Take with food^Disp: 120 tablet^Rfl: 3 fluticasone (FLONASE) 50 mcg/actuation nasal spray^Use 1 [place] in each nostril once daily.^Disp: 3 Each^Rfl: [address] (PROTONIX) 40 mg tablet^Take 1 tablet by mouth once daily.^Disp: 90 tablet^Rfl: 3 albuterol HFA (PROAIR HFA) 90 mcg/actuation inhaler^Inhale 2 Puffs as instructed every 4 hours as needed.^Disp: 1 Each^Rfl: 2 vit A,C,T-Axna-Uhgkxk (OCUVITE PRESERVISION) 2,148 mcg-113 mg-45 mg-17.4mg tab^Take 2 tablets by mouth daily with breakfast.^Disp: ^Rfl: potassium chloride ER (KLOR-CON M20) 20 mEq tablet^Take 1 tablet by mouth twice daily.^Disp: 180 tablet^Rfl: 3 leucovorin (LEUCOVORIN) 15 mg tablet^Take 15 mg by mouth once daily.^Disp: ^Rfl: HUMIRA PEN 40 mg/0.8 mL pnkt^Inject 40 mg subcutaneously. Every other week. ^Disp: ^Rfl: methotrexate 2.5 mg tablet^Take 2.5 mg by mouth every Sunday. PT takes 2 tablets in am and 1 tablets in pm^Disp: 12 tablet^Rfl: 0 Cholecalciferol, Vitamin D3, 1,000 unit ORAL Cap^Take 1 capsule by mouth once daily.^Disp: 1 capsule^Rfl: 0 omega-3 fatty acids/vitamin e(FISH OIL 1,000 MG CAP)^Take one(1) capsule daily.^Disp: ^Rfl: 0 THERAPEUTIC MULTIVITAMIN TAB^Take one(1) tablet daily.^Disp: ^Rfl: 0 FAMILY HISTORY Problem Relation Age of Onset Cancer Mother brain Social History Tobacco Use Smoking status: Former Packs/day: 1.00 Years: 10.00 Additional pack years: 0.00 Total pack years: 10.00 Types: Cigarettes Quit date: 02/19/1989 Years since quittin.9 Smokeless tobacco: Never Tobacco comments: Late heavy smoker. Vaping Use Vaping Use: Never used Substance Use Topics Alcohol use: Yes Comment: occasional Drug use: No Review of Systems HENT: Positive for congestion. Respiratory: Positive for cough and shortness of breath (on occasion hx of COPD). All other systems reviewed and are negative. Objective Physical Exam Vitals and nursing note reviewed. Constitutional: Appearance: Normal appearance. HENT: Head: Normocephalic and atraumatic. Right Ear: Tympanic membrane normal. Left Ear: Tympanic membrane normal. Nose: Congestion present. Mouth/Throat: Mouth: Mucous membranes are dry. Eyes: Extraocular Movements: Extraocular movements intact. Pupils: Pupils are equal, round, and reactive to light. Cardiovascular: Rate and Rhythm: Normal rate and regular rhythm. Pulses: Normal pulses. Heart sounds: Normal heart sounds. Pulmonary: Effort: Pulmonary effort is normal. No respiratory distress. Breath sounds: No stridor. Wheezing (Scant wheeze in left lower lobe no other heard) present. No rhonchi or rales. Chest: Chest wall: No tenderness. Abdominal: General: Abdomen is flat. Palpations: Abdomen is soft. Musculoskeletal: General: Normal range of motion. Skin: General: Skin is warm. Capillary Refill: Capillary refill takes less than 2 seconds. Neurological: General: No focal deficit present. Mental Status: She is alert and oriented to person, place, and time. Psychiatric: Mood and Affect: Mood normal. ASSESSMENT/PLAN: 1. Acute cough - ICD9: 786.2, ICD10: R05.1 Increase fluids Tea and honey Follow up in 2-3 days if not improving - XR CHEST 2V FRONTAL/LAT - COVID & INFLUENZA A/B & RSV NAAT, ROUTINE Adri Zaragoza APRN.CHUTE PULLER documented in this encounter [facility] 02-05-2023 Note Patient Outreach ([facility] [place]) HAYDEE BUSTAMANTE ([id number]) 1945 F Date Time Provider Department 02/05/23 ILDA MILLER During your visit today, we recorded the following information about you: Ilda Miller RN 02/05/2023 9:35 AM Signed CDM ESCALATION Provider Action / FYI: N/A Message received via: cable mock up assembler Pool Are you having any new symptoms that your PCP needs to know about? Yes Do you have new or worsening cough? Yes Do you need to use your rescue (Albuterol) inhaler or nebulizer more often than normal? Yes Contact made with patient: Yes The patient was identified by name and date of . Discussed Care with patient Based on education general manager, the following disposition is advised: No symptoms or symptoms present, not severe. Routed to: No Action Needed PAN Education Provided this Outreach: Yes Hx chronic bronchitis. Has had ongoing intermittent cough x 3 weeks. Gets better, then worse. No fever or chills. Coughing up large amounts thick, white sputum. Home COVID test negative 2 weeks ago. Coughing noted while on phone but denies SOB. Rare incidence of wheezing. Speaking in complete sentences during call. Albuterol inhaler helps with cough and is therefore using more frequently. Took Mucinex once over the weekend which helped but states she does not want to take more medicine than she has to. Throat coat tea helps. Uses cool mist humidifier in bedroom at night. Advised evaluation at [facility]. Pt is agreeable to this and will go today to [place] for evaluation. Advised if becomes SOB or cough worsens to the point of not being able to catch her breath, or notes bluish tint around lips to go to nearest ED or call 911. Verbalizes understanding and agreement. Ilda Miller RN February 05, 2023 9:19 AM Allergies As of Date: 02/05/2023 Noted Allergy Reaction PENICILLINS 01/04/2005 4 - Hives Date Reviewed: 01/04/2023 Reviewed by: Yesenia Weinstein LPN - Fully Assessed Reason for Visit: Community Monitoring Outreach [Other] Cmt: CDM Escalation[facility] questionnaire triggered call Primary Visit Diagnosis:Chronic obstructive pulmonary disease with acute exacerbation (HCC) [J44.1] Order(s):PT ED PULMONARY [[id number]] Order #: [id number]: 1 Prescriptions as of 02/05/2023 - budesonide-formoterol (SYMBICORT) 160-4.5 mcg/actuation inhaler USE 2 INHALATIONS TWICE A DAY INSTRUCTED - gabapentin (NEURONTIN) 300 mg capsule Take 1 capsule by mouth two times a day. - warfarin (COUMADIN) 5 mg tablet take 1 AND 1/2 tablets by mouth once daily ON SUNDAY, SUNDAY, SUNDAY, SUNDAY AND SUNDAY and 1 tablet by mouth once daily ON SUNDAY AND SUNDAY - warfarin (COUMADIN) 5 mg tablet Take 7.5 mg , Sun,Sun, Sat, Sun; and 5 mg on Sunday and Sunday - FOLIC ACID ORAL Take by mouth. - tiotropium bromide (SPIRIVA RESPIMAT) 2.5 mcg/actuation inhaler Inhale 2 Puffs as instructed once daily. Inhale two puffs once daily. - Irbesartan-hydroCHLOROthiazide 150-12.5 mg per tablet Take 1 tablet by mouth once daily. - naproxen (NAPROSYN) 500 mg tablet Take 1 tablet by mouth twice daily as needed. Take with food - fluticasone (FLONASE) 50 mcg/actuation nasal spray Use 1 [place] in each nostril once daily. - pantoprazole DR (PROTONIX) 40 mg tablet Take 1 tablet by mouth once daily. - albuterol HFA (PROAIR HFA) 90 mcg/actuation inhaler Inhale 2 Puffs as instructed every 4 hours as needed. - vit A,C,U-Yndr-Jcbjls (OCUVITE PRESERVISION) 2,148 mcg-113 mg-45 mg-17.4mg tab Take 2 tablets by mouth daily with breakfast. - potassium chloride ER (KLOR-CON M20) 20 mEq tablet Take 1 tablet by mouth twice daily. - leucovorin (LEUCOVORIN) 15 mg tablet Take 15 mg by mouth once daily. - HUMIRA PEN 40 mg/0.8 mL pnkt Inject 40 mg subcutaneously. Every other week. - methotrexate 2.5 mg tablet Take 2.5 mg by mouth every Sunday. PT takes 2 tablets in am and 1 tablets in pm - Cholecalciferol, Vitamin D3, 1,000 unit ORAL Cap Take 1 capsule by mouth once daily. - omega-3 fatty acids/vitamin e(FISH OIL 1,000 MG CAP) Take one(1) capsule daily. - THERAPEUTIC MULTIVITAMIN TAB Take one(1) tablet daily. Facility-Administered Medications as of 02/05/2023 - perflutren lipid microspheres 1.3 mL in NaCl (PF) 0.9% 10 mL injection (DEFINITY) - sodium chloride 0.9 % (flush) 10 mL (BD POSIFLUSH) Meds Comments as of 03/05/2018: 03/05/18 The medications are managed by this patient by: PATIENT Muna Harris (Cushion Former) [facility] for assisted medications. 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 [facility] 02-05-2023 Note HNO ID: [id number] Author: Ilda Miller RN Service: ? Author Type: Registered Nurse Type: Progress Notes Filed: 02/05/2023 9:35 AM Note Text: CDM ESCALATION Provider Action / FYI: N/A Message received via: cable mock up assembler Pool Are you having any new symptoms that your PCP needs to know about? Yes Do you have new or worsening cough? Yes Do you need to use your rescue (Albuterol) inhaler or nebulizer more often than normal? Yes Contact made with patient: Yes The patient was identified by name and date of . Discussed Care with patient Based on education general manager, the following disposition is advised: No symptoms or symptoms present, not severe. Routed to: No Action Needed PAN Education Provided this Outreach: Yes Hx chronic bronchitis. Has had ongoing intermittent cough x 3 weeks. Gets better, then worse. No fever or chills. Coughing up large amounts thick, white sputum. Home COVID test negative 2 weeks ago. Coughing noted while on phone but denies SOB. Rare incidence of wheezing. Speaking in complete sentences during call. Albuterol inhaler helps with cough and is therefore using more frequently. Took Mucinex once over the weekend which helped but states she does not want to take more medicine than she has to. Throat coat tea helps. Uses cool mist humidifier in bedroom at night. Advised evaluation at [facility]. Pt is agreeable to this and will go today to [place] for evaluation. Advised if becomes SOB or cough worsens to the point of not being able to catch her breath, or notes bluish tint around lips to go to nearest ED or call 911. Verbalizes understanding and agreement. Ilda Miller RN February 05, 2023 9:19 AM [facility] 02-02-2023 Note HNO ID: [id number] Author: Flex Means RN Service: ? Author Type: ? Type: Progress Notes Filed: 02/02/2023 3:19 PM Note Text: pcp agrees with information [facility] 02-02-2023 History of Presen t illness Narrative pcp agrees with information patient had inr completed at [facility] patients inr is 2.1 (patients inr range is 1.7-2.2) patient is currently taking 5mg daily patients last dose change was on 01/10/23 due to a high level of 2.9 (dose at that time was 7.5mg Tues,Sat,Sun and 5mg all other days) patient has had no changes in medication and no missed doses and no change in diet Advised patient to continue on the same dose(s) and that they would only be contacted regarding dosage and follow up instructions after review with provider, if a change is needed. Written instructions given and patient verbalized understanding. Presently scheduled in 4 weeks (03/02/23) for follow up INR. documented in this encounter [facility] 02-02-2023 Note HNO ID: [id number] Author: Flex Means RN Service: ? Author Type: ? Type: Progress Notes Filed: 02/02/2023 3:19 PM Note Text: patient had inr completed at [facility] patients inr is 2.1 (patients inr range is 1.7-2.2) patient is currently taking 5mg daily patients last dose change was on 01/10/23 due to a high level of 2.9 (dose at that time was 7.5mg Tues,Sat,Sun and 5mg all other days) patient has had no changes in medication and no missed doses and no change in diet Advised patient to continue on the same dose(s) and that they would only be contacted regarding dosage and follow up instructions after review with provider, if a change is needed. Written instructions given and patient verbalized understanding. Presently scheduled in 4 weeks (03/02/23) for follow up INR. [facility] 01-24-2023 Miscellaneous Notes GEREMIAS 07/20/22 Patient phones requesting refills as follows: Requested Prescriptions Pending Prescriptions Disp Refills budesonide-formoterol (SYMBICORT) 160-4.5 mcg/actuation inhaler [Pharmacy Med Name: BUDESONIDE/FORM INHALER 10.2GM 160/4.5MCG] 30.6 g 3 Sig: USE 2 INHALATIONS TWICE A DAY INSTRUCTED Please review and advise. Magalie Ngo LPN documented in this encounter [facility] 01-17-2023 Note HNO ID: [id number] Author: Flex Means RN Service: ? Author Type: ? Type: Progress Notes Filed: 01/17/2023 3:02 PM Note Text: pcp agrees with information [facility] 01-17-2023 Note HNO ID: [id number] Author: Flex Means RN Service: ? Author Type: ? Type: Progress Notes Filed: 01/17/2023 3:02 PM Note Text: patient [facility] inr [facility] [facility] is 1.9 (patients inr range is 1.7-2.2) patient is currently taking 5mg daily patients last dose change was on 01/10/23 due to a high level of 2.9 (dose at that time was 7.5mg Tues,Sat,Sun and 5mg all other days) patient has had no changes in medication except for coumadin and no missed doses and no change in diet Advised patient to continue on the same dose(s) and that they would only be contacted regarding dosage and follow up instructions after review with provider, if a change is needed. Written instructions given and patient verbalized understanding. Presently scheduled in 2 weeks (02/02/23) for follow up INR since this is the first normal reading since dose change [facility] 01-17-2023 History of Presen t illness Narrative pcp agrees with information patient had inr completed at [facility] patients inr is 1.9 (patients inr range is 1.7-2.2) patient is currently taking 5mg daily patients last dose change was on 01/10/23 due to a high level of 2.9 (dose at that time was 7.5mg Tues,Sat,Sun and 5mg all other days) patient has had no changes in medication except for coumadin and no missed doses and no change in diet Advised patient to continue on the same dose(s) and that they would only be contacted regarding dosage and follow up instructions after review with provider, if a change is needed. Written instructions given and patient verbalized understanding. Presently scheduled in 2 weeks (02/02/23) for follow up INR since this is the first normal reading since dose change documented in this encounter [facility] 01-10-2023 Note HNO ID: [id number] Author: Flex Means RN Service: ? Author Type: ? Type: Progress Notes Filed: 01/10/2023 3:47 PM Note Text: pcp agrees with information PATIENT NOTIFIED OF INFORMATION [facility] 01-10-2023 History of Presen t illness Narrative pcp agrees with information PATIENT NOTIFIED OF INFORMATION patient had inr completed at [facility] patients inr is 2.9 (patients inr range is 1.7-2.2) patient is currently taking 7.5mg Tues,Sat,Sun and 5mg all other days) patients last dose change was on 01/04/23 due to a high level of 2.6 (dose at that time was 5mg Mon,Wed,Fri and 7.5mg all other days) patient has had no changes in medication except for coumadin and no missed doses and no change in diet recommend: patient hold one dose then go to 5mg daily and recheck in 1 week patient has been scheduled for a 1 week follow up inr on 01/17/23 please review and advise on recommendation documented in this encounter [facility] 01-10-2023 Note HNO ID: [id number] Author: Flex Means RN Service: ? Author Type: ? Type: Progress Notes Filed: 01/10/2023 3:47 PM Note Text: patient had inr completed at [facility] patients inr is 2.9 (patients inr range is 1.7-2.2) patient is currently taking 7.5mg Tues,Sat,Sun and 5mg all other days) patients last dose change was on 01/04/23 due to a high level of 2.6 (dose at that time was 5mg Mon,Wed,Fri and 7.5mg all other days) patient has had no changes in medication except for coumadin and no missed doses and no change in diet recommend: patient hold one dose then go to 5mg daily and recheck in 1 week patient has been scheduled for a 1 week follow up inr on 01/17/23 please review and advise on recommendation [facility] 01-04-2023 Note HNO ID: [id number] Author: Yesenia Weinstein LPN Service: ? Author Type: ? Type: Progress Notes Filed: 01/04/2023 4:25 PM Note Text: Patient notified of providers message and verbalized understanding. [facility] 01-04-2023 Note HNO ID: [id number] Author: Jimbo Carias APRN.TROLLEY CAR OPERATOR Service: ? Author Type: Nurse Specialist Type: Progress Notes Filed: 01/04/2023 4:25 PM Note Text: OK to change coumadin to 7.5mg Tues,Sat,Sun and 5mg all other days and recheck INR in 1 week [facility] 01-04-2023 History of Presen t illness Narrative Patient notified of providers message and verbalized understanding. OK to change coumadin to 7.5mg Tues,Sat,Sun and 5mg all other days and recheck INR in 1 week patient had inr completed at [facility] patients inr is 2.6 (patients inr range is 1.7-2.2) patient is currently taking 5mg Mon,Wed,Fri and 7.5mg all other days patients last dose change was on 12/07/22 due to a high level of 2.5 (dose at that time was 5mg Mon,Wed, and 7.5mg all other days) patient has had no changes in medication and no missed doses and no change in diet recommend: patient change coumadin to 7.5mg Tues,Sat,Sun and 5mg all other days and recheck inr in 1 week patient has been scheduled for a 1 week follow up inr on 01/10/23 please review and advise on recommendation documented in this encounter [facility] 01-04-2023 Note HNO ID: [id number] Author: Flex Means RN Service: ? Author Type: ? Type: Progress Notes Filed: 01/04/2023 4:25 PM Note Text: patient had inr completed at [facility] patients inr is 2.6 (patients inr range is 1.7-2.2) patient is currently taking 5mg Mon,Wed,Fri and 7.5mg all other days patients last dose change was on 12/07/22 due to a high level of 2.5 (dose at that time was 5mg Mon,Wed, and 7.5mg all other days) patient has had no changes in medication and no missed doses and no change in diet recommend: patient change coumadin to 7.5mg Tues,Sat,Sun and 5mg all other days and recheck inr in 1 week patient has been scheduled for a 1 week follow up inr on 01/10/23 please review and advise on recommendation [facility] 01-04-2023 Note HNO ID: [id number] Author: Jimbo Carias APRN.TROLLEY CAR OPERATOR Service: ? Author Type: Nurse Specialist Type: Progress Notes Filed: 01/04/2023 11:32 AM Note Text: SUBJECTIVE: RSV Vaccine(1 - 1-dose 60+ series) Never done Covid-19 Vaccine( season) due on 10/20/2022 HPI Haydee Bustamante is a 77 year old female. Her past medical history significant for GERD, meralgia paresthetica, history of embolism and thrombosis, recurrent, voice disorder, arthropathy, enthesopathy of hip region, elevated liver enzymes, long-term current use of anticoagulation, herniated lumbar disc, atrophic vaginitis ganglion cyst essential hypertension rheumatoid arthritis hip and back pain, iron deficiency anemia, aortic stenosis with bicuspid valve, lung nodule bronchiectasis and COPD. HPI excerpted from previous visits: Beer Cooler: Florence Terry MD, last seen July 20, 2022. Seen for follow-up of lung nodules bronchiectasis. Noted are a likely etiology for underlying bronchiectasis. Noted new nodularity of lung, likely represents inflammatory nodules. Will need follow-up CT. No this may improve with bronchopulmonary hygiene. Spiriva and intermittent albuterol has helped with cough. Stable. Television Operator: William Ambriz BAV, aortic stenosis , last seen in cardiology August 29, 2022 by Rachelle Lai CNP. Continued on current treatments unchanged. Follow-up echo advised, not yet scheduled.. 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 Continues with methotrexate, Humira.seen by Dr. Roque Zacarias 06/26/2022 for RA, osteoporosis, degenerative disc disease, arthritis of foot, osteoarthritis of bilateral hands. DEXA scan completed, showed osteoporosis. All yes trying recommended restart of Reclast. Weight: stable Exercise: walking miles most days, feeling well with this . 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 Noted macular degeneration. OAC: no bleeding difficulties. Occasional bruising. [facility]. Referred by car rental clerk to see orthopedic physician for her hip. She notes that this appointment did not go well, orthopedic provider that she saw states he does not see people for this problem. She is interested in getting COVID-19 booster and RSV vaccine. Review of Systems Constitutional: Negative. Cardiovascular: Negative. Musculoskeletal: Positive for arthralgias and back pain. Objective BP 128/75 Pulse 77 Resp 16 Wt 58.1 kg (128 lb) BMI 21.97 kg/m? Physical Exam Vitals and nursing note reviewed. Constitutional: Appearance: Normal appearance. HENT: Head: Normocephalic and atraumatic. Eyes: Conjunctiva/sclera: Conjunctivae normal. Neck: Thyroid: No thyromegaly. Cardiovascular: Rate and Rhythm: Normal rate. Pulses: Carotid pulses are 2+ on the right side and 2+ on the left side. Radial pulses are 2+ on the right side and 2+ on the left side. Heart sounds: Murmur heard. Systolic murmur is present with a grade of 3/6. Comments: RUAB c/w Pulmonary: Effort: Pulmonary effort is normal. Musculoskeletal: Lumbar back: Tenderness present. Skin: General: Skin is warm and dry. Neurological: General: No focal deficit present. Mental Status: She is alert and oriented to person, place, and time. ALLERGIES Allergen Reactions Penicillins Hives Medications gabapentin (NEURONTIN) 300 mg capsuleTake 1 capsule by mouth two times a day.Disp: 180 capsuleRfl: 3 warfarin (COUMADIN) 5 mg tablettake 1 AND 1/2 tablets by mouth once daily ON SUNDAY, SUNDAY, SUNDAY, SUNDAY AND SUNDAY and 1 tablet by mouth once daily ON SUNDAY AND SUNDAYDisp: 30 tabletRfl: 0 warfarin (COUMADIN) 5 mg tabletTake 7.5 mg , Sun,Sun, Sat, Sun; and 5 mg on Sunday and SundayDisp: 180 tabletRfl: 3 FOLIC ACID ORALTake by mouth.Disp: Rfl: tiotropium bromide (SPIRIVA RESPIMAT) 2.5 mcg/actuation inhalerInhale 2 Puffs as instructed once daily. Inhale two puffs once daily.Disp: 3 EachRfl: 3 Irbesartan-hydroCHLOROthiazide 150-12.5 mg per tabletTake 1 tablet by mouth once daily.Disp: 90 tabletRfl: 3 naproxen (NAPROSYN) 500 mg tabletTake 1 tablet by mouth twice daily as needed. Take with foodDisp: 120 tabletRfl: 3 budesonide-formoterol (SYMBICORT) 160-4.5 mcg/actuation inhalerInhale 2 Puffs as instructed twice daily.Disp: 31 gRfl: 1 fluticasone (FLONASE) 50 mcg/actuation nasal sprayUse 1 [place] in each nostril once daily.Disp: 3 EachRfl: [address] (PROTONIX) 40 mg tabletTake 1 tablet by mouth once daily.Disp: 90 tabletRfl: 3 albuterol HFA (PROAIR HFA) 90 mcg/actuation inhalerInhale 2 Puffs as instructed every 4 hours as needed.Disp: 1 EachRfl: 2 vit A,C,K-Dfdk-Dochph (OCUVITE PRESERVISION) 2,148 mcg-113 mg-45 mg-17.4mg tabTake 2 tablets by mouth daily with breakfast.Disp: Rfl: potassium chloride ER (KLOR-CON M20) 20 mEq tabletTake 1 tablet by mouth twice daily.Disp: 180 tabletRfl: 3 leucovorin (LEUCOVORIN) 15 mg table (more content not included)... [facility] 01-04-2023 Instructions Jimbo Carias APRN.CNS - 01/04/2023 10:50 AM EST It appears that you have better coverage for the RSV vaccine at your local pharmacy. documented in this encounter [facility] 01-04-2023 History of Presen t illness Narrative SUBJECTIVE: RSV Vaccine(1 - 1-dose 60+ series) Never done Covid-19 Vaccine(2022- season) due on 10/20/2022 HPI Haydee Bustamante is a 77 year old female. Her past medical history significant for GERD, meralgia paresthetica, history of embolism and thrombosis, recurrent, voice disorder, arthropathy, enthesopathy of hip region, elevated liver enzymes, long-term current use of anticoagulation, herniated lumbar disc, atrophic vaginitis ganglion cyst essential hypertension rheumatoid arthritis hip and back pain, iron deficiency anemia, aortic stenosis with bicuspid valve, lung nodule bronchiectasis and COPD. HPI excerpted from previous visits: Beer Cooler: Florence Terry MD, last seen July 20, 2022. Seen for follow-up of lung nodules bronchiectasis. Noted are a likely etiology for underlying bronchiectasis. Noted new nodularity of lung, likely represents inflammatory nodules. Will need follow-up CT. No this may improve with bronchopulmonary hygiene. Spiriva and intermittent albuterol has helped with cough. Stable. Television Operator: William Ambriz BAV, aortic stenosis , last seen in cardiology August 29, 2022 by Rachelle Lai CNP. Continued on current treatments unchanged. Follow-up echo advised, not yet scheduled.. [employer]: [facility]. Continues with methotrexate, Humira.seen by Dr. Roque Zacarias 06/26/2022 for RA, osteoporosis, degenerative disc disease, arthritis of foot, osteoarthritis of bilateral hands. DEXA scan completed, showed osteoporosis. All yes trying recommended restart of Reclast. Weight: stable Exercise: walking miles most days, feeling well with this . Notes up to 10mi/day when participating in [employer] Seen by PCP March 13, 2022. Noted macular degeneration. OAC: no bleeding difficulties. Occasional bruising. [facility]. Referred by car rental clerk to see orthopedic physician for her hip. She notes that this appointment did not go well, orthopedic provider that she saw states he does not see people for this problem. She is interested in getting COVID-19 booster and RSV vaccine. Review of Systems Constitutional: Negative. Cardiovascular: Negative. Musculoskeletal: Positive for arthralgias and back pain. Objective BP 128/75 Pulse 77 Resp 16 Wt 58.1 kg (128 lb) BMI 21.97 kg/m Physical Exam Vitals and nursing note reviewed. Constitutional: Appearance: Normal appearance. HENT: Head: Normocephalic and atraumatic. Eyes: Conjunctiva/sclera: Conjunctivae normal. Neck: Thyroid: No thyromegaly. Cardiovascular: Rate and Rhythm: Normal rate. Pulses: Carotid pulses are 2+ on the right side and 2+ on the left side. Radial pulses are 2+ on the right side and 2+ on the left side. Heart sounds: Murmur heard. Systolic murmur is present with a grade of 3/6. Comments: RUAB c/w Pulmonary: Effort: Pulmonary effort is normal. Musculoskeletal: Lumbar back: Tenderness present. Skin: General: Skin is warm and dry. Neurological: General: No focal deficit present. Mental Status: She is alert and oriented to person, place, and time. ALLERGIES Allergen Reactions Penicillins Hives Medications gabapentin (NEURONTIN) 300 mg capsule^Take 1 capsule by mouth two times a day.^Disp: 180 capsule^Rfl: 3 warfarin (COUMADIN) 5 mg tablet^take 1 AND 1/2 tablets by mouth once daily ON SUNDAY, SUNDAY, SUNDAY, SUNDAY AND SUNDAY and 1 tablet by mouth once daily ON SUNDAY AND SUNDAY^Disp: 30 tablet^Rfl: 0 warfarin (COUMADIN) 5 mg tablet^Take 7.5 mg , Sun,Sun, Sun, Sun; and 5 mg on Sunday and Sunday^Disp: 180 tablet^Rfl: 3 FOLIC ACID ORAL^Take by mouth.^Disp: ^Rfl: tiotropium bromide (SPIRIVA RESPIMAT) 2.5 mcg/actuation inhaler^Inhale 2 Puffs as instructed once daily. Inhale two puffs once daily.^Disp: 3 Each^Rfl: 3 Irbesartan-hydroCHLOROthiazide 150-12.5 mg per tablet^Take 1 tablet by mouth once daily.^Disp: 90 tablet^Rfl: 3 naproxen (NAPROSYN) 500 mg tablet^Take 1 tablet by mouth twice daily as needed. Take with food^Disp: 120 tablet^Rfl: 3 budesonide-formoterol (SYMBICORT) 160-4.5 mcg/actuation inhaler^Inhale 2 Puffs as instructed twice daily.^Disp: 31 g^Rfl: 1 fluticasone (FLONASE) 50 mcg/actuation nasal spray^Use 1 [place] in each nostril once daily.^Disp: 3 Each^Rfl: [address] (PROTONIX) 40 mg tablet^Take 1 tablet by mouth once daily.^Disp: 90 tablet^Rfl: 3 albuterol HFA (PROAIR HFA) 90 mcg/actuation inhaler^Inhale 2 Puffs as instructed every 4 hours as needed.^Disp: 1 Each^Rfl: 2 vit A,C,E-Fwgq-Lhxbzw (OCUVITE PRESERVISION) 2,148 mcg-113 mg-45 mg-17.4mg tab^Take 2 tablets by mouth daily with breakfast.^Disp: ^Rfl: potassium chloride ER (KLOR-CON M20) 20 mEq tablet^Take 1 tablet by mouth twice daily.^Disp: 180 tablet^Rfl: 3 leucovorin (LEUCOVORIN) 15 mg tablet^Take 15 mg by mouth once daily.^Disp: ^Rfl: HUMIRA PEN 40 mg/0.8 mL pnkt^Inject 40 mg subcutaneously. Every other week. ^Disp: ^Rfl: Cholecalciferol, Vitamin D3, 1,000 unit ORAL Cap^Take 1 capsule by mouth once daily.^Disp: 1 capsule^Rfl: 0 omega-3 fatty acids/vitamin e(FISH OIL 1,000 MG CAP)^Take one(1) capsule daily.^Disp: ^Rfl: 0 THERAPEUTIC MULTIVITAMIN TAB^Take one(1) tablet daily.^Disp: ^Rfl: 0 methotrexate 2.5 mg tablet^Take 2.5 mg by mouth every Sunday. PT takes 2 tablets in am and 1 tablets in pm^Disp: 12 tablet^Rfl: 0 PAST MEDICAL HISTORY Diagnosis Date Anemia Bone marrow involvement with histoplasmosis Bronchiectasis (HCC) COPD (chronic obstructive pulmonary disease) (HCC) Disseminated histoplasmosis Colitis, immunosuppression, 01/2018. Diverticulosis of colon (without mention of hemorrhage) Diverticulosis DVT, recurrent, lower extremity, acute ([facility]) 12/10/2014 Esophageal reflux Hiatal hernia 02/25/2018 Hypertension Lung nodule Personal history of unspecified urinary disorder 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 rheumatoid factor (HCC) 03/07/2015 Dr. Hurley ([facility]) Unspecified hemorrhoids without mention of complication Hemorrhoids Social History Tobacco Use Smoking status: Former Packs/day: 1.00 Years: 10.00 Additional pack years: 0.00 Total pack years: 10.00 Types: Cigarettes Quit date: 02/19/1989 Years since quittin.8 Smokeless tobacco: Never Tobacco comments: Late heavy smoker. Vaping Use Vaping Use: Never used Substance Use Topics Alcohol use: Yes Comment: occasional Drug use: No Component Latest Ref Rng & Units 07/07/2021 10/27/2021 04/14/2022 07/18/2022 10/26/2022 Cholesterol, Total <200 mg/dL 184 Triglyceride <150 mg/dL 50 HDL Cholesterol >39 mg/dL 64 Non HDL Cholesterol <130 mg/dL 120 Fasting Time hrs 12 VLDL Cholesterol <30 mg/dL 10 TC:HDL Ratio <5.10 2.88 LDL Cholesterol <100 mg/dL 110 (H) LDL:HDL Ratio <2.54 1.72 Albumin 3.9 - 4.9 g/dL 4.1 4.1 Bilirubin, Total 0.2 - 1.3 mg/dL 0.5 0.7 Bilirubin, Conjug <0.2 mg/dL <0.2 <0.2 Alkaline Phosphatase 34 - 123 U/L 64 70 AST 13 - 35 U/L 39 (H) 43 (H) ALT 7 - 38 U/L 41 (H) 45 (H) Protein, Total 6.3 - 8.0 g/dL 6.6 6.5 INR (POCT) 0.8 - 1.2 1.7 (H) Internal Quality Check Acceptable Alpha 1 Antitrypsin 90 - 200 mg/dL 124 ASSESSMENT/PLAN 1. Encounter for immunization - ICD9: V03.89, ICD10: Z23 - RSV PRINTED PHARMACY INSTRUCTIONS - to get at pharmacy discussed risks - [employer] COVID-19 VACCINE (2022- SEASON) AGE 12+ YR in office today Jimbo Carias APRN.CNS Medical Decision Making: Problems: Low: 2+ self-limited or minor problems Risk: Moderate: Drug management Medical Decision Making Level: 3 - Low documented in this encounter [facility] 12-20-2022 Miscellaneous Notes Patient has been identified by name and date of : Yes Patient phones for refill(s): Requested Prescriptions Pending Prescriptions Disp Refills gabapentin (NEURONTIN) 300 mg capsule 180 capsule 3 Sig: Take 1 capsule by mouth two times a day. Date of last office visit in primary care: 10/27/2022 Date of next office visit in primary care: 04/30/2023 Last 2 Encounter Wt Readings: Date: Wt: 10/27/2022 59.4 kg (131 lb) 08/29/2022 58.5 kg (129 lb) Previous labs/tests for medication: Not applicable Please advise. Thank you. Maritza Preston LPN. documented in this encounter [facility] 12-14-2022 Note HNO ID: [id number] Author: Jimbo Carias APRN.CNS Service: ? Author Type: Nurse Specialist Type: Progress Notes Filed: 12/14/2022 3:38 PM Note Text: Continue with Coumadin dose unchanged and check INR in 2 or 3 weeks [facility] 12-14-2022 Note HNO ID: [id number] Author: Flex Means RN Service: ? Author Type: ? Type: Progress Notes Filed: 12/14/2022 3:38 PM Note Text: patient had inr completed at [facility] patients inr is 2.2 (patients inr range is 1.7-2.2) patient is currently taking 5mg Mon,Wed,Fri and 7.5mg all other days patients last dose change was on 12/07/22 due to a high level of 2.5 (dose at that time was 5mg Mon,Wed and 7.5mg all other days) patient has had no changes in medication except for coumadin and no missed doses and no change in diet Advised patient to continue on the same dose(s) and that they would only be contacted regarding dosage and follow up instructions after review with provider, if a change is needed. Written instructions given and patient verbalized understanding. Presently scheduled in 3 weeks (01/04/23) for follow up INR due to the cc is closed at the 2 week lauryn and patient declines blood draw [facility] 12-14-2022 History of Presen t illness Narrative Continue with Coumadin dose unchanged and check INR in 2 or 3 weeks patient had inr completed at [facility] patients inr is 2.2 (patients inr range is 1.7-2.2) patient is currently taking 5mg Mon,Wed,Fri and 7.5mg all other days patients last dose change was on 12/07/22 due to a high level of 2.5 (dose at that time was 5mg Sun,Sun and 7.5mg all other days) patient has had no changes in medication except for coumadin and no missed doses and no change in diet Advised patient to continue on the same dose(s) and that they would only be contacted regarding dosage and follow up instructions after review with provider, if a change is needed. Written instructions given and patient verbalized understanding. Presently scheduled in 3 weeks (01/04/23) for follow up INR due to the cc is closed at the 2 week lauryn and patient declines blood draw documented in this encounter [facility] 12-07-2022 Note HNO ID: [id number] Author: Yesenia Weinstein LPN Service: ? Author Type: ? Type: Progress Notes Filed: 12/07/2022 4:46 PM Note Text: Patient notified of providers message regarding coumadin instructions and verbalized understanding. [facility] 12-07-2022 Note HNO ID: [id number] Author: Jimbo Carias APRN.TROLLEY CAR OPERATOR Service: ? Author Type: Nurse Specialist Type: Progress Notes Filed: 12/07/2022 4:46 PM Note Text: Recommend Coumadin 5 mg Sunday and 7.5 mg all other days and check INR in 1 week [facility] 12-07-2022 History of Presen t illness Narrative Patient notified of providers message regarding coumadin instructions and verbalized understanding. Recommend Coumadin 5 mg Sunday and 7.5 mg all other days and check INR in 1 week patient had inr completed at [facility] patients inr is 2.5 (patients inr range is 1.7-2.2) patient is currently taking 5mg Mon,Wed and 7.5mg all other days patients last dose change was on 10/12/22 due to a low level of 1.5 (dose at that time was 7.5mg Tues,Thurs,Sun and 5mg all other days) patient has had no changes in medication and no missed doses and no change in diet Recommend: patient change coumadin dose to 5mg Mon,Wed,Fri and 7.5mg all other days and recheck inr in 1 week patient has been scheduled for a 1 week follow up inr on 12/14/22 please review and advise on recommendation documented in this encounter [facility] 12-07-2022 Note HNO ID: [id number] Author: Flex Means RN Service: ? Author Type: ? Type: Progress Notes Filed: 12/07/2022 4:46 PM Note Text: patient had inr completed at [facility] patients inr is 2.5 (patients inr range is 1.7-2.2) patient is currently taking 5mg Mon,Wed and 7.5mg all other days patients last dose change was on 10/12/22 due to a low level of 1.5 (dose at that time was 7.5mg Tues,Thurs,Sun and 5mg all other days) patient has had no changes in medication and no missed doses and no change in diet Recommend: patient change coumadin dose to 5mg Mon,Wed,Fri and 7.5mg all other days and recheck inr in 1 week patient has been scheduled for a 1 week follow up inr on 12/14/22 please review and advise on recommendation [facility] 11-20-2022 Miscellaneous Notes November 20, 2022 PID: [id number] Haydee Black[address] [place] [address] Dear Ms. Bustamante, We are pleased to inform you that the results of your recent breast imaging exam on 11/17/2022 are normal. Your mammogram demonstrates that you have dense breast tissue, which could hide abnormalities. Dense breast tissue, in and of itself, is a relatively common condition. Therefore, this information is not provided to cause undue concern; rather, it is to raise your awareness and promote discussion with your health care provider regarding the presence of dense breast tissue in addition to other risk factors. Early detection of cancer is very important. We also understand recommendations regarding breast cancer screening are controversial. Please discuss with your primary care provider which strategy is best for you and whether a mammogram is right for you. Your imaging studies and report will be kept on file at [facility] as part of your permanent medical record and are available for your continuing care. Thank you for allowing us to help in meeting your health care needs. Sincerely, Dr. Basurto Interpreting Radiologist [facility] (Normal over 40) documented in this encounter [facility] 11-17-2022 Note HNO ID: [id number] Author: Aide Gupta RT(R) Service: ? Author Type: Technologist Type: Progress Notes Filed: 11/17/2022 9:04 AM Note Text: Radiology Service Progress Note PATIENT NAME: Haydee Bustamante DATE OF SERVICE: November 17, 2022 TIME: 9:00 AM PATIENT IDENTITY VERIFICATION COMPLETED USING TWO (2) IDENTIFIERS: Name and Date of confirmed by patient verbally. FALL SCREENING: Has the patient had 2 falls in the last year or 1 fall with injury or currently using an Ambulatory Assistive Device (Walker, Cane, Wheelchair, Crutches, etc.)? No PATIENT GENDER DATA: Female. status: : No status: NO. PATIENT RELEVANT IMPLANT DATA REVIEWED: Not Applicable RADIOLOGY DEPARTMENT: Mammography PERIPHERAL IV DATA: Not applicable SIGNED BY: RT Rosa Maria(R) November 17, 2022 9:00 AM [facility] 11-17-2022 Note HNO ID: [id number] Author: Shahnaz Ferguson Mammo Tech Service: ? Author Type: Jewel Inspector Type: Progress Notes Filed: 11/17/2022 9:25 AM Note Text: Radiology Service Progress Note PATIENT NAME: Haydee Bustamante DATE OF SERVICE: November 17, 2022 TIME: 9:00 AM PATIENT IDENTITY VERIFICATION COMPLETED USING TWO (2) IDENTIFIERS: Name and Date of confirmed by patient verbally. FALL SCREENING: Has the patient had 2 falls in the last year or 1 fall with injury or currently using an Ambulatory Assistive Device (Walker, Cane, Wheelchair, Crutches, etc.)? No PATIENT GENDER DATA: Female. status: : No status: NO. PATIENT RELEVANT IMPLANT DATA REVIEWED: Not Applicable RADIOLOGY DEPARTMENT: Mammography PERIPHERAL IV DATA: Not applicable SIGNED BY: Shahnaz Ferguson Apptentive Pete November 17, 2022 9:00 AM [facility] 11-17-2022 History of Presen t illness Narrative Radiology Service Progress Note PATIENT NAME: Haydee Bustamante DATE OF SERVICE: November 17, 2022 TIME: 9:00 AM PATIENT IDENTITY VERIFICATION COMPLETED USING TWO (2) IDENTIFIERS: Name and Date of confirmed by patient verbally. FALL SCREENING: Has the patient had 2 falls in the last year or 1 fall with injury or currently using an Ambulatory Assistive Device (Walker, Cane, Wheelchair, Crutches, etc.)? No PATIENT GENDER DATA: Female. status: : No status: NO. PATIENT RELEVANT IMPLANT DATA REVIEWED: Not Applicable RADIOLOGY DEPARTMENT: Mammography PERIPHERAL IV DATA: Not applicable SIGNED BY: RT Rosa Maria(R) November 17, 2022 9:00 AM Radiology Service Progress Note PATIENT NAME: Haydee Bustamante DATE OF SERVICE: November 17, 2022 TIME: 9:00 AM PATIENT IDENTITY VERIFICATION COMPLETED USING TWO (2) IDENTIFIERS: Name and Date of confirmed by patient verbally. FALL SCREENING: Has the patient had 2 falls in the last year or 1 fall with injury or currently using an Ambulatory Assistive Device (Walker, Cane, Wheelchair, Crutches, etc.)? No PATIENT GENDER DATA: Female. status: : No status: NO. PATIENT RELEVANT IMPLANT DATA REVIEWED: Not Applicable RADIOLOGY DEPARTMENT: Mammography PERIPHERAL IV DATA: Not applicable SIGNED BY: Shahnaz Ferguson [employer] Pete November 17, 2022 9:00 AM Electronically signed by Shahnaz Ferguson [employer] at 11/17/2022 9:25 AM EDT documented in this encounter [facility] 11-17-2022 Miscellaneous Notes Negative, 1 year screening follow-up documented in this encounter [facility] 11-09-2022 Note HNO ID: [id number] Author: Jimbo Carias APRN.CNS Service: ? Author Type: Nurse Specialist Type: Progress Notes Filed: 11/09/2022 4:58 PM Note Text: Continue Coumadin dose unchanged and check INR in 4 weeks [facility] 11-09-2022 History of Presen t illness Narrative Continue Coumadin dose unchanged and check INR in 4 weeks patient had inr completed at [facility] patients inr is 1.9 (patients inr range is 1.7-2.2) patient is currently taking 5mg Mon,Wed and 7.5mg all other days patients last dose change was on 10/12/22 due to a low level of 1.5 (dose at that time was 7.5mg Tues,Thurs,Sun and 5mg all other days) patient has had no changes in medication and no missed doses and no change in diet Advised patient to continue on the same dose(s) and that they would only be contacted regarding dosage and follow up instructions after review with provider, if a change is needed. Written instructions given and patient verbalized understanding. Presently scheduled in 4 weeks (12/07/22) for follow up INR. documented in this encounter [facility] 11-09-2022 Note HNO ID: [id number] Author: Flex Means RN Service: ? Author Type: ? Type: Progress Notes Filed: 11/09/2022 4:58 PM Note Text: patient had inr completed at [facility] patients inr is 1.9 (patients inr range is 1.7-2.2) patient is currently taking 5mg Mon,Wed and 7.5mg all other days patients last dose change was on 10/12/22 due to a low level of 1.5 (dose at that time was 7.5mg Tues,Thurs,Sun and 5mg all other days) patient has had no changes in medication and no missed doses and no change in diet Advised patient to continue on the same dose(s) and that they would only be contacted regarding dosage and follow up instructions after review with provider, if a change is needed. Written instructions given and patient verbalized understanding. Presently scheduled in 4 weeks (12/07/22) for follow up INR. [facility] 11-09-2022 Note HNO ID: [id number] Author: Ron Bell MD Service: ? Author Type: Physician Type: Progress Notes Filed: 12/07/2022 8:52 AM Note Text: Ron Bell MD Department of Orthopaedics Orthopaedics [address] [facility] [address] Dept: [phone] Dept November 09, 2022 CHIEF COMPLAINT: New and Pain of the Left Hip (Left hip pain/Xray 12/31/2021) HPI Patient presents with: Left Hip - New, Pain: Left hip pain Xray 12/31/2021 Patient states she has a disc of an xray from in 09/19/2022. Here for osteoporosis of the left hip. Patient denies pain in the left hip. States that the pain is in the right hip. Rates the pain as 1/10 currently with walking. States the pain is constant and describes it as aching pain. Takes prescribed Gabapentin and Naproxen for pain. AMB ROOMING INTAKE FLOWSHEET DATA Pain Pain Level: 0 (Pain is in the right hip) Pain Location: Hip-Left ASSESSMENT: M51.36 DDD (degenerative disc disease), lumbar (primary encounter diagnosis) M25.552 Hip pain, acute, left M81.0 Age-related osteoporosis without current pathological fracture PLAN: She presents today for discussions about osteoporosis. I recommended she see primary care or rheumatology for further treatment discussions for that. She is not having any troubles at this time specifically with the joints. FOLLOW UP INSTRUCTIONS: As needed Ms. Haydee Bustamante was advised as to contrast therapies and/or to take analgesics/anti-inflammatories as needed and all contraindications were reviewed. OBJECTIVE: Ms. Haydee Bustamante is a pleasant 77 year old in no apparent distress. Gen:There were no vitals taken for this visit. nl development, thin-appearing , no deformities ENT: Normocephalic, normal hearing, moist mucosa CV: Pulses:DP/PT= 2+ and symmetric, capillary refill < 2 secs, no peripheral edema/varicosities Skin: no rash, bruising or lesions. Good turgor. Psych: cooperative and appropriate, alert and oriented x 3, good mood and affect. Musculoskeletal: Gentle range of motion of both hips without pain. Flexion and internal rotation without any troubles. Some stiffness in the lumbar spine. Slight scoliosis to the right in the lumbar spine. IMAGING: IMPRESSION: No acute pathology. 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 [employer] Therapist: KRYSTAL Transcribe Date/Time: Dec 31 2021 11:55A Dictated by : BANDAR BELL DO This examination was interpreted and the report reviewed and electronically signed by: BANDAR BELL DO on Dec 31 2021 11:58AM EST Results-Findings * * *Final Report* * * DATE OF EXAM: Dec 31 2021 11:54AM WOX [id number] - XR HIP 3V PELV+ AP/LAT LT / PROCEDURE REASON: Hip pain, acute, left * * * * Physician Interpretation * * * * Pelvis and left hip HISTORY: Indication: Hip pain, acute, left TECHNIQUE: Images: XR HIP 3V PELV+ AP/LAT LT Comparison: Pelvis 05/18/2017 RESULT: Findings: Mild LEFT convex rotoscoliosis. Moderate degenerative changes in the spine. Inferior vena cava filter noted. Pelvis: No fractures or dislocations are seen. Severe narrowing of both hip joints Left hip: No fractures or dislocations are seen. Supporting Subjective Information Below: Past Medical History: PAST MEDICAL HISTORY Diagnosis Date Anemia Bone marrow involvement with histoplasmosis Bronchiectasis ([facility]) COPD (chronic obstructive pulmonary disease) ([facility]) Disseminated histoplasmosis Colitis, immunosuppression, 01/2018. Diverticulosis of colon (without mention of hemorrhage) Diverticulosis DVT, recurrent, lower extremity, acute ([facility]) 12/10/2014 Esophageal reflux Hiatal hernia 02/25/2018 Hypertension Lung nodule Personal history of unspecified urinary disorder 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 rheumatoid factor ([facility]) 03/07/2015 Dr. Hurley ([facility]) Unspecified hemorrhoids without mention of complication Hemorrhoids Past Surgical History: PAST SURGICAL HISTORY Procedure Laterality Date COLONOSCOPY FLX DX W/COLLJ SPEC WHEN PFRMD 10/2003 Colonoscopy COLONOSCOPY FLX DX W/COLLJ SPEC WHEN PFRMD 05/18/2014 Colonoscopy COLONOSCOPY FLX DX W/COLLJ SPEC WHEN PFRMD 02/25/2018 Colonoscopy COLONOSCOPY FLX DX W/COLLJ SPEC WHEN PFRMD 03/24/2019 Colonoscopy ESOPHAGOGASTRODUODENOSCOPY TRANSORAL DIAGNOSTIC 02/25/2018 EGD FILTER PLACEMENT (VENA CAVA) 12/28/2006 FOOT SURGERY HX Right 2022 Bunion surgery INTRO. OF CATH SUP/INF VENA CAVA 12/28/2006 LUMBAR SPINE FUSN,POST INTERBODY 2011 Dr. Armando at [facility]. Diskectomy and laminectomy PAST SURGICAL HISTORY OF 03/07/1999 removal facial lesion PAST SURGICAL HISTORY OF 08/17/2014 excision soft tissue mass left index finger TONSILLECTOMY PRIMARY/SECONDARY TRANSCATH RETRIEVAL,PERCUT 12/28/2006 Family History: FAMILY HISTORY Problem Relation Age of Onset Cancer Mother brain Social History: Social History To (more content not included)... [facility] 11-09-2022 Miscellaneous Notes patients orders for coumadin clinic inr's has at this time. new order has been pended for approval if possible so that patient can continue to get inr's completed thru the coumadin clinic. coumadin clinic nurse only needs called if order can not be approved. documented in this encounter [facility] 11-09-2022 History of Presen t illness Narrative Ron Bell MD Department of Orthopaedics Orthopaedics [address] [facility] [address] Dept: [phone] Dept November 09, 2022 CHIEF COMPLAINT: New and Pain of the Left Hip (Left hip pain/Xray 12/31/2021) HPI Patient presents with: Left Hip - New, Pain: Left hip pain Xray 12/31/2021 Patient states she has a disc of an xray from in 09/19/2022. Here for osteoporosis of the left hip. Patient denies pain in the left hip. States that the pain is in the right hip. Rates the pain as 1/10 currently with walking. States the pain is constant and describes it as aching pain. Takes prescribed Gabapentin and Naproxen for pain. AMB ROOMING INTAKE FLOWSHEET DATA Pain Pain Level: 0 (Pain is in the right hip) Pain Location: Hip-Left ASSESSMENT: M51.36 DDD (degenerative disc disease), lumbar (primary encounter diagnosis) M25.552 Hip pain, acute, left M81.0 Age-related osteoporosis without current pathological fracture PLAN: She presents today for discussions about osteoporosis. I recommended she see primary care or rheumatology for further treatment discussions for that. She is not having any troubles at this time specifically with the joints. FOLLOW UP INSTRUCTIONS: As needed Ms. Haydee Bustamante was advised as to contrast therapies and/or to take analgesics/anti-inflammatories as needed and all contraindications were reviewed. OBJECTIVE: Ms. Haydee Bustamante is a pleasant 77 year old in no apparent distress. Gen:There were no vitals taken for this visit. nl development, thin-appearing , no deformities ENT: Normocephalic, normal hearing, moist mucosa CV: Pulses:DP/PT= 2+ and symmetric, capillary refill < 2 secs, no peripheral edema/varicosities Skin: no rash, bruising or lesions. Good turgor. Psych: cooperative and appropriate, alert and oriented x 3, good mood and affect. Musculoskeletal: Gentle range of motion of both hips without pain. Flexion and internal rotation without any troubles. Some stiffness in the lumbar spine. Slight scoliosis to the right in the lumbar spine. IMAGING: IMPRESSION: No acute pathology. 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 [employer] Therapist: PSCIain Transcribe Date/Time: Dec 31 2021 11:55A Dictated by : BANDAR BELL DO This examination was interpreted and the report reviewed and electronically signed by: BANDAR BELL DO on Dec 31 2021 11:58AM EST Results-Findings * * *Final Report* * * DATE OF EXAM: Dec 31 2021 11:54AM WOX [id number] - XR HIP 3V PELV+ AP/LAT LT / PROCEDURE REASON: Hip pain, acute, left * * * * Physician Interpretation * * * * Pelvis and left hip HISTORY: Indication: Hip pain, acute, left TECHNIQUE: Images: XR HIP 3V PELV+ AP/LAT LT Comparison: Pelvis 05/18/2017 RESULT: Findings: Mild LEFT convex rotoscoliosis. Moderate degenerative changes in the spine. Inferior vena cava filter noted. Pelvis: No fractures or dislocations are seen. Severe narrowing of both hip joints Left hip: No fractures or dislocations are seen. Supporting Subjective Information Below: Past Medical History: PAST MEDICAL HISTORY Diagnosis Date Anemia Bone marrow involvement with histoplasmosis Bronchiectasis (HCC) COPD (chronic obstructive pulmonary disease) (HCC) Disseminated histoplasmosis Colitis, immunosuppression, 01/2018. Diverticulosis of colon (without mention of hemorrhage) Diverticulosis DVT, recurrent, lower extremity, acute ([facility]) 12/10/2014 Esophageal reflux Hiatal hernia 02/25/2018 Hypertension Lung nodule Personal history of unspecified urinary disorder 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 rheumatoid factor ([facility]) 03/07/2015 Dr. Hurley ([facility]) Unspecified hemorrhoids without mention of complication Hemorrhoids Past Surgical History: PAST SURGICAL HISTORY Procedure Laterality Date COLONOSCOPY FLX DX W/COLLJ SPEC WHEN PFRMD 10/2003 Colonoscopy COLONOSCOPY FLX DX W/COLLJ SPEC WHEN PFRMD 05/18/2014 Colonoscopy COLONOSCOPY FLX DX W/COLLJ SPEC WHEN PFRMD 02/25/2018 Colonoscopy COLONOSCOPY FLX DX W/COLLJ SPEC WHEN PFRMD 03/24/2019 Colonoscopy ESOPHAGOGASTRODUODENOSCOPY TRANSORAL DIAGNOSTIC 02/25/2018 EGD FILTER PLACEMENT (VENA CAVA) 12/28/2006 FOOT SURGERY HX Right 2022 Bunion surgery INTRO. OF CATH SUP/INF VENA CAVA 12/28/2006 LUMBAR SPINE FUSN,POST INTERBODY 2011 Dr. Armando at [facility]. Diskectomy and laminectomy PAST SURGICAL HISTORY OF 03/07/1999 removal facial lesion PAST SURGICAL HISTORY OF 08/17/2014 excision soft tissue mass left index finger TONSILLECTOMY PRIMARY/SECONDARY <AGE 14 TRANSCATH RETRIEVAL,PERCUT 12/28/2006 Family History: FAMILY HISTORY Problem Relation Age of Onset Cancer Mother brain Social History: Social History Tobacco Use Smoking status: Former Packs/day: 1.00 Years: 10.00 Additional pack years: 0.00 Total pack years: 10.00 Types: Cigarettes Quit date: 02/19/1989 Years since quittin.7 Smokeless tobacco: Never Tobacco comments: Late heavy smoker. Vaping Use Vaping Use: Never used Substance Use Topics Alcohol use: Yes Comment: occasional Drug use: No Medications: Current Outpatient Medications Medication Sig warfarin (COUMADIN) 5 mg tablet Take 7.5 mg Tu, Anabel,Fri, Sat, Sun; and 5 mg on Sunday and Sunday warfarin (COUMADIN) 5 mg tablet Take 7.5 mg , Anabel,Sun, Sat, Sun; and 5 mg on Sunday and Sunday FOLIC ACID ORAL Take by mouth. tiotropium bromide (SPIRIVA RESPIMAT) 2.5 mcg/actuation inhaler Inhale 2 Puffs as instructed once daily. Inhale two puffs once daily. Irbesartan-hydroCHLOROthiazide 150-12.5 mg per tablet Take 1 tablet by mouth once daily. naproxen (NAPROSYN) 500 mg tablet Take 1 tablet by mouth twice daily as needed. Take with food budesonide-formoterol (SYMBICORT) 160-4.5 mcg/actuation inhaler Inhale 2 Puffs as instructed twice daily. fluticasone (FLONASE) 50 mcg/actuation nasal spray Use 1 [place] in each nostril once daily. pantoprazole DR (PROTONIX) 40 mg tablet Take 1 tablet by mouth once daily. albuterol HFA (PROAIR HFA) 90 mcg/actuation inhaler Inhale 2 Puffs as instructed every 4 hours as needed. vit A,C,A-Jckq-Hfjxvk (OCUVITE PRESERVISION) 2,148 mcg-113 mg-45 mg-17.4mg tab Take 2 tablets by mouth daily with breakfast. potassium chloride ER (KLOR-CON M20) 20 mEq tablet Take 1 tablet by mouth twice daily. gabapentin (NEURONTIN) 300 mg capsule Take 1 capsule by mouth twice daily. HUMIRA PEN 40 mg/0.8 mL pnkt Inject 40 mg subcutaneously. Every other week. methotrexate 2.5 mg tablet Take 2.5 mg by mouth every Sunday. PT takes 2 tablets in am and 1 tablets in pm Cholecalciferol, Vitamin D3, 1,000 unit ORAL Cap Take 1 capsule by mouth once daily. omega-3 fatty acids/vitamin e(FISH OIL 1,000 MG CAP) Take one(1) capsule daily. THERAPEUTIC MULTIVITAMIN TAB Take one(1) tablet daily. leucovorin (LEUCOVORIN) 15 mg tablet Take 15 mg by mouth once daily. (Patient not taking: Reported on 10/27/2022) Current Facility-Administered Medications Medication Dose Route Frequency perflutren lipid microspheres 1.3 mL in NaCl (PF) 0.9% 10 mL injection (DEFINITY) INTRAVENOUS DIRECTED PRN sodium chloride 0.9 % (flush) 10 mL (BD POSIFLUSH) 10 mL INTRAVENOUS DIRECTED PRN sodium chloride 0.9 % (flush) 10 mL (BD POSIFLUSH) 10 mL INTRAVENOUS DIRECTED PRN Allergies: Penicillins ROS: General (negative for fatigue, malaise, weight loss/gain) HEENT (negative for headache, earache, recent vision changes, sinus pain, sore throat) Respiratory (no recent shortness of breath, hemoptysis) CV (negative for chest tightness, palpitations) Musculoskeletal (see HPI) Psych (no depression, anxiety) REFERRING PHYSICIAN: Consultation requested by Jeana Sommers for an opinion regarding hip OA. My final recommendations will be communicated back to the requesting physician by way of shared Medical record or letter to requesting physician via US mail. Jeana Sommers [address] [address] Claudine Durán MD [address] [address] Ron Bell MD documented in this encounter [facility] 11-02-2022 Miscellaneous Notes Patient calls back and states that [facility] does have prescription for coumadin. Isabella Zacarias RN Patient calling to say [facility] tells her they did not receive script for short fill Warfarin. Patient asking if it can be sent again. Pended. Melanie Mcgregor RN documented in this encounter [facility] 10-31-2022 Miscellaneous Notes Last OV: 9/8/23 with TYLOR Yi. Pt reports she will be out of medication on and [facility] advised her she had no refills even though pt should. Patient has been identified by name and date of : Yes Requested Prescriptions Pending Prescriptions Disp Refills warfarin (COUMADIN) 5 mg tablet 30 tablet 0 Sig: Take 7.5 mg Tu, Anabel,Fri, Sat, Sun; and 5 mg on Sunday and Sunday warfarin (COUMADIN) 5 mg tablet 180 tablet 3 Sig: Take 7.5 mg Tu, Anabel,Fri, Sat, Sun; and 5 mg on Sunday and Sunday RX INSTRUCTIONS: Patient aware RX will be sent to pharmacy. No need to notify patient. Charissa Perez LPN documented in this encounter [facility] 10-31-2022 Miscellaneous Notes Patient calling with request for medication/refill: Patient/caregiver requesting refill of Warfarin be called to [facility] pharmacy at online.. Patient denies any new or worsening symptoms of which a provider is not aware: Yes. Patient just discovered she will run out of the below rx on . Is requesting a short term supply be sent to [facility] in [place] and the remainder sent to [facility]. Has been taking medication as ordered. warfarin (COUMADIN) 5 mg tablet 30 tablet 3 07/11/2022 Sig: Take 7.5 mg Tu, Anabel,Fri, Sat, Sun; and 5 mg on Sunday and Sunday Sent to pharmacy as: warfarin (COUMADIN) 5 mg tablet documented in this encounter [facility] 10-27-2022 Note HNO ID: [id number] Author: Jimbo Carias APRN.TROLLEY CAR OPERATOR Service: ? Author Type: Nurse Specialist Type: Progress Notes Filed: 10/27/2022 10:06 AM Note Text: SUBJECTIVE: BP CONTROLLED (<130/80) Never done COVID-19 VACCINE(7 - Pfizer risk series) due on 01/05/2022 INFLUENZA(1) due on 10/20/2022 HPI Haydee Bustamante is a 77 year old female. Her past medical history significant for GERD, meralgia paresthetica, history of embolism and thrombosis, recurrent, voice disorder, arthropathy, enthesopathy of hip region, elevated liver enzymes, long-term current use of anticoagulation, herniated lumbar disc, atrophic vaginitis ganglion cyst essential hypertension rheumatoid arthritis hip and back pain, iron deficiency anemia, aortic stenosis with bicuspid valve, lung nodule bronchiectasis and COPD. Beer Cooler: Florence Terry MD, last seen July 20, 2022. Seen for follow-up of lung nodules bronchiectasis. Noted are a likely etiology for underlying bronchiectasis. Noted new nodularity of lung, likely represents inflammatory nodules. Will need follow-up CT. No this may improve with bronchopulmonary hygiene. Spiriva and intermittent albuterol has helped with cough. Stable. Television Operator: William Ambriz BAV, aortic stenosis , last seen in cardiology August 29, 2022 by Rachelle Lai CNP. Continued on current treatments unchanged. Follow-up echo advised, not yet scheduled.. 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 Continues with methotrexate, Humira.seen by Dr. Roque Zacarias 06/26/2022 for RA, osteoporosis, degenerative disc disease, arthritis of foot, osteoarthritis of bilateral hands. DEXA scan completed, showed osteoporosis. All yes trying recommended restart of Reclast. Weight: stable Exercise: walking miles most days, feeling well with this . 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 Noted macular degeneration. OAC: no bleeding difficulties. Occasional bruising. [facility] coumadin clinic. HTN: Ms. Bustamante indicates that she is feeling well and denies any symptoms referable to elevated blood pressure. Specifically denies headache, chest pain, palpitations, dyspnea, peripheral edema, orthopnea, fatigue and PND. Last 14 Encounter BP Readings: Date: BP: 08/29/2022 142/78 07/20/2022 122/72 07/11/2022 110/64 03/13/2022 112/68 12/31/2021 142/86 11/29/2021 122/76 11/10/2021 152/80 09/20/2021 128/64 08/12/2021 130/74 07/11/2021 122/74 2021 144/67 03/14/2021 118/62 11/29/2020 118/60 11/09/2020 112/68 With report of back pain, currently taking gabapentin. Plans to see automotive glass specialist, referred by car rental clerk. Referred by car rental clerk to see orthopedic physician for her hip. Review of Systems Constitutional: Negative. Cardiovascular: Negative. Musculoskeletal: Positive for arthralgias and back pain. Objective There were no vitals taken for this visit. Physical Exam Vitals and nursing note reviewed. Constitutional: Appearance: Normal appearance. HENT: Head: Normocephalic and atraumatic. Eyes: Conjunctiva/sclera: Conjunctivae normal. Neck: Thyroid: No thyromegaly. Cardiovascular: Rate and Rhythm: Normal rate. Pulses: Carotid pulses are 2+ on the right side and 2+ on the left side. Radial pulses are 2+ on the right side and 2+ on the left side. Heart sounds: Murmur heard. Systolic murmur is present with a grade of 3/6. Comments: RUAB c/w Pulmonary: Effort: Pulmonary effort is normal. Musculoskeletal: Lumbar back: Tenderness present. Skin: General: Skin is warm and dry. Neurological: General: No focal deficit present. Mental Status: She is alert and oriented to person, place, and time. ALLERGIES Allergen Reactions Penicillins Hives Medications naproxen (NAPROSYN) 500 mg tabletTake 1 tablet by mouth twice daily as needed. Take with foodDisp: 120 tabletRfl: 3 budesonide-formoterol (SYMBICORT) 160-4.5 mcg/actuation inhalerInhale 2 Puffs as instructed twice daily.Disp: 31 gRfl: 1 fluticasone (FLONASE) 50 mcg/actuation nasal sprayUse 1 [place] in each nostril once daily.Disp: 3 EachRfl: 3 warfarin (COUMADIN) 5 mg tabletTake 7.5 mg , Sun,Sun, Sun, Sun; and 5 mg on Sunday and SundayDisp: 30 tabletRfl: [address] (PROTONIX) 40 mg tabletTake 1 tablet by mouth once daily.Disp: 90 tabletRfl: 3 albuterol HFA (PROAIR HFA) 90 mcg/actuation inhalerInhale 2 Puffs as instructed every 4 hours as needed.Disp: 1 EachRfl: 2 vit A,C,F-Sntb-Rmxuxl (OCUVITE PRESERVISION) 2,148 mcg-113 mg-45 mg-17.4mg tabTake 2 tablets by mouth daily with breakfast.Disp: Rfl: potassium chloride ER (KLOR-CON M20) 20 mEq tabletTake 1 tablet by mouth twice daily.Disp: 180 tabletRfl: 3 gabapentin (NEURONTIN) 300 mg capsuleTake 1 capsule by mouth twice daily.Disp: 180 capsuleRfl: 3 tiotropium bromide (SPIRIVA RESPIMAT) 2.5 mcg/actuation inhalerInhale 2 Puffs as instructed once daily. Inhale two puffs once da (more content not included)... [facility] 10-27-2022 History of Presen t illness Narrative SUBJECTIVE: BP CONTROLLED (<130/80) Never done COVID-19 VACCINE(7 - Pfizer risk series) due on 01/05/2022 INFLUENZA(1) due on 10/20/2022 HPI Haydee Bustamante is a 77 year old female. Her past medical history significant for GERD, meralgia paresthetica, history of embolism and thrombosis, recurrent, voice disorder, arthropathy, enthesopathy of hip region, elevated liver enzymes, long-term current use of anticoagulation, herniated lumbar disc, atrophic vaginitis ganglion cyst essential hypertension rheumatoid arthritis hip and back pain, iron deficiency anemia, aortic stenosis with bicuspid valve, lung nodule bronchiectasis and COPD. Beer Cooler: Florence Terry MD, last seen July 20, 2022. Seen for follow-up of lung nodules bronchiectasis. Noted are a likely etiology for underlying bronchiectasis. Noted new nodularity of lung, likely represents inflammatory nodules. Will need follow-up CT. No this may improve with bronchopulmonary hygiene. Spiriva and intermittent albuterol has helped with cough. Stable. Television Operator: William Ambriz BAV, aortic stenosis , last seen in cardiology August 29, 2022 by Rachelle Lai CNP. Continued on current treatments unchanged. Follow-up echo advised, not yet scheduled.. [employer]: [facility]. Continues with methotrexate, Humira.seen by Dr. Roque Zacarias 06/26/2022 for RA, osteoporosis, degenerative disc disease, arthritis of foot, osteoarthritis of bilateral hands. DEXA scan completed, showed osteoporosis. All yes trying recommended restart of Reclast. Weight: stable Exercise: walking miles most days, feeling well with this . Notes up to 10mi/day when participating in [facility] Seen by PCP March 13, 2022. Noted macular degeneration. OAC: no bleeding difficulties. Occasional bruising. [facility] coumadin clinic. HTN: Ms. Bustamante indicates that she is feeling well and denies any symptoms referable to elevated blood pressure. Specifically denies headache, chest pain, palpitations, dyspnea, peripheral edema, orthopnea, fatigue and PND. Last 14 Encounter BP Readings: Date: BP: 08/29/2022 142/78 07/20/2022 122/72 07/11/2022 110/64 03/13/2022 112/68 12/31/2021 142/86 11/29/2021 122/76 11/10/2021 152/80 09/20/2021 128/64 08/12/2021 130/74 07/11/2021 122/74 2021 144/67 03/14/2021 118/62 11/29/2020 118/60 11/09/2020 112/68 With report of back pain, currently taking gabapentin. Plans to see automotive glass specialist, referred by car rental clerk. Referred by car rental clerk to see orthopedic physician for her hip. Review of Systems Constitutional: Negative. Cardiovascular: Negative. Musculoskeletal: Positive for arthralgias and back pain. Objective There were no vitals taken for this visit. Physical Exam Vitals and nursing note reviewed. Constitutional: Appearance: Normal appearance. HENT: Head: Normocephalic and atraumatic. Eyes: Conjunctiva/sclera: Conjunctivae normal. Neck: Thyroid: No thyromegaly. Cardiovascular: Rate and Rhythm: Normal rate. Pulses: Carotid pulses are 2+ on the right side and 2+ on the left side. Radial pulses are 2+ on the right side and 2+ on the left side. Heart sounds: Murmur heard. Systolic murmur is present with a grade of 3/6. Comments: RUAB c/w Pulmonary: Effort: Pulmonary effort is normal. Musculoskeletal: Lumbar back: Tenderness present. Skin: General: Skin is warm and dry. Neurological: General: No focal deficit present. Mental Status: She is alert and oriented to person, place, and time. ALLERGIES Allergen Reactions Penicillins Hives Medications naproxen (NAPROSYN) 500 mg tablet^Take 1 tablet by mouth twice daily as needed. Take with food^Disp: 120 tablet^Rfl: 3 budesonide-formoterol (SYMBICORT) 160-4.5 mcg/actuation inhaler^Inhale 2 Puffs as instructed twice daily.^Disp: 31 g^Rfl: 1 fluticasone (FLONASE) 50 mcg/actuation nasal spray^Use 1 [place] in each nostril once daily.^Disp: 3 Each^Rfl: 3 warfarin (COUMADIN) 5 mg tablet^Take 7.5 mg , Sun,Sun, Sun, Sun; and 5 mg on Sunday and Sunday^Disp: 30 tablet^Rfl: [address] (PROTONIX) 40 mg tablet^Take 1 tablet by mouth once daily.^Disp: 90 tablet^Rfl: 3 albuterol HFA (PROAIR HFA) 90 mcg/actuation inhaler^Inhale 2 Puffs as instructed every 4 hours as needed.^Disp: 1 Each^Rfl: 2 vit A,C,X-Ydvf-Zwgapy (OCUVITE PRESERVISION) 2,148 mcg-113 mg-45 mg-17.4mg tab^Take 2 tablets by mouth daily with breakfast.^Disp: ^Rfl: potassium chloride ER (KLOR-CON M20) 20 mEq tablet^Take 1 tablet by mouth twice daily.^Disp: 180 tablet^Rfl: 3 gabapentin (NEURONTIN) 300 mg capsule^Take 1 capsule by mouth twice daily.^Disp: 180 capsule^Rfl: 3 tiotropium bromide (SPIRIVA RESPIMAT) 2.5 mcg/actuation inhaler^Inhale 2 Puffs as instructed once daily. Inhale two puffs once daily.^Disp: 3 Each^Rfl: 3 Irbesartan-hydroCHLOROthiazide 150-12.5 mg per tablet^Take 1 tablet by mouth once daily.^Disp: 90 tablet^Rfl: 3 leucovorin (LEUCOVORIN) 15 mg tablet^Take 15 mg by mouth once daily.^Disp: ^Rfl: HUMIRA PEN 40 mg/0.8 mL pnkt^Inject 40 mg subcutaneously. Every other week. ^Disp: ^Rfl: methotrexate 2.5 mg tablet^Take 2.5 mg by mouth every Sunday. PT takes 2 tablets in am and 1 tablets in pm^Disp: 12 tablet^Rfl: 0 Cholecalciferol, Vitamin D3, 1,000 unit ORAL Cap^Take 1 capsule by mouth once daily.^Disp: 1 capsule^Rfl: 0 omega-3 fatty acids/vitamin e(FISH OIL 1,000 MG CAP)^Take one(1) capsule daily.^Disp: ^Rfl: 0 THERAPEUTIC MULTIVITAMIN TAB^Take one(1) tablet daily.^Disp: ^Rfl: 0 PAST MEDICAL HISTORY Diagnosis Date Anemia Bone marrow involvement with histoplasmosis Bronchiectasis (HCC) COPD (chronic obstructive pulmonary disease) (HCC) Disseminated histoplasmosis Colitis, immunosuppression, 01/2018. Diverticulosis of colon (without mention of hemorrhage) Diverticulosis DVT, recurrent, lower extremity, acute ([facility]) 12/10/2014 Esophageal reflux Hiatal hernia 02/25/2018 Hypertension Lung nodule Personal history of unspecified urinary disorder 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 rheumatoid factor ([facility]) 03/07/2015 Dr. Hurley ([facility]) Unspecified hemorrhoids without mention of complication Hemorrhoids Social History Tobacco Use Smoking status: Former Packs/day: 1.00 Years: 10.00 Additional pack years: 0.00 Total pack years: 10.00 Types: Cigarettes Quit date: 02/19/1989 Years since quittin.7 Smokeless tobacco: Never Tobacco comments: Late heavy smoker. Vaping Use Vaping Use: Never used Substance Use Topics Alcohol use: Yes Comment: occasional Drug use: No Component Latest Ref Rng & Units 07/07/2021 10/27/2021 04/14/2022 07/18/2022 10/26/2022 Cholesterol, Total <200 mg/dL 184 Triglyceride <150 mg/dL 50 HDL Cholesterol >39 mg/dL 64 Non HDL Cholesterol <130 mg/dL 120 Fasting Time hrs 12 VLDL Cholesterol <30 mg/dL 10 TC:HDL Ratio <5.10 2.88 LDL Cholesterol <100 mg/dL 110 (H) LDL:HDL Ratio <2.54 1.72 Albumin 3.9 - 4.9 g/dL 4.1 4.1 Bilirubin, Total 0.2 - 1.3 mg/dL 0.5 0.7 Bilirubin, Conjug <0.2 mg/dL <0.2 <0.2 Alkaline Phosphatase 34 - 123 U/L 64 70 AST 13 - 35 U/L 39 (H) 43 (H) ALT 7 - 38 U/L 41 (H) 45 (H) Protein, Total 6.3 - 8.0 g/dL 6.6 6.5 INR (POCT) 0.8 - 1.2 1.7 (H) Internal Quality Check Acceptable Alpha 1 Antitrypsin 90 - 200 mg/dL 124 ASSESSMENT/PLAN: 1. Essential hypertension - ICD9: 401.9, ICD10: I10 (primary diagnosis) Controlled - Continue current medications - Encouraged sodium restriction, DASH or Mediterranean diet - Recommend regular aerobic exercise - IRBESARTAN 150 MG-HYDROCHLOROTHIAZIDE 12.5 MG TABLET 2. Encounter for immunization - ICD9: V03.89, ICD10: Z23 - INFLUENZA VACCINE, PRSV FREE, AGE 65+ YR, HIGH DOSE, QUADRIVALENT (FLUZONE HIGH-DOSE) 3. Encounter for screening mammogram for breast cancer - ICD9: V76.12, ICD10: Z12.31 Endorse routine BSE - SABINO SCREENING - SABINO SCREENING W ALIZE 4. COPD without exacerbation (HCC) - ICD9: 496, ICD10: J44.9 - SPIRIVA RESPIMAT 2.5 MCG/ACTUATION SOLUTION FOR INHALATION 5. Low back pain with right-sided sciatica, unspecified back pain laterality, unspecified chronicity - ICD9: 724.3, ICD10: M54.41 Plans to see automotive glass specialist 6. Hip pain, acute, left - ICD9: 719.45, ICD10: M25.552 7. 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 rheumatoid factor (HCC) - ICD9: 714.0, ICD10: M05.79 Followed by [facility] 8. Bronchiectasis without complication (HCC) - ICD9: 494.0, ICD10: J47.9 9. Lung nodule - ICD9: 793.11, ICD10: R91.[address] Terry pulmonology 10. Aortic stenosis with bicuspid valve - ICD9: 746.3, 746.4, ICD10: Q23.0, Q23.1 Has follow-up appointment scheduled with cardiology, no chest pain dizziness lightheadedness presyncope or syncope noted. Jimbo Carias APRN.TROLLEY CAR OPERATOR Medical Decision Making: Problems: Moderate: 2+ stable chronic illnesses Risk: Moderate: Drug management Medical Decision Making Level: 4 - Moderate documented in this encounter [facility] 10-27-2022 Instructions Jimbo Carias APRN.CNS - 10/27/2022 9:01 AM EDT Consider getting new COVID booster when it becomes available either in clinic or at pharmacy. documented in this encounter [facility] 10-26-2022 Note HNO ID: [id number] Author: Jimbo Carias APRN.CNS Service: ? Author Type: Nurse Specialist Type: Progress Notes Filed: 10/26/2022 4:39 PM Note Text: Continue with Coumadin dose unchanged and check INR in 2 weeks [facility] 10-26-2022 History of Presen t illness Narrative Continue with Coumadin dose unchanged and check INR in 2 weeks patient had inr completed at [facility] patients inr is 1.7 (patients inr range is 1.7-2.2) patient is currently taking 5mg Mon,Wed, and 7.5mg all other days patients last dose change was on 10/12/22 due to a low level of 1.5 (dose at that time was 7.5mg Tues,Thurs, Sune and 5mg all other days) patient has had no changes in medication except for coumadin and no missed doses and no change in diet Advised patient to continue on the same dose(s) and that they would only be contacted regarding dosage and follow up instructions after review with provider, if a change is needed. Written instructions given and patient verbalized understanding. Presently scheduled in 2 weeks (11/09/22) for follow up INR since this is the first normal reading since dose change documented in this encounter [facility] 10-26-2022 Note HNO ID: [id number] Author: Flex Means RN Service: ? Author Type: ? Type: Progress Notes Filed: 10/26/2022 4:39 PM Note Text: patient had inr completed at [facility] patients inr is 1.7 (patients inr range is 1.7-2.2) patient is currently taking 5mg Mon,Wed, and 7.5mg all other days patients last dose change was on 10/12/22 due to a low level of 1.5 (dose at that time was 7.5mg Tues,Thurs, Sune and 5mg all other days) patient has had no changes in medication except for coumadin and no missed doses and no change in diet Advised patient to continue on the same dose(s) and that they would only be contacted regarding dosage and follow up instructions after review with provider, if a change is needed. Written instructions given and patient verbalized understanding. Presently scheduled in 2 weeks (11/09/22) for follow up INR since this is the first normal reading since dose change [facility] 10-12-2022 Note HNO ID: [id number] Author: Maritza Preston LPN Service: ? Author Type: ? Type: Progress Notes Filed: 10/13/2022 10:06 AM Note Text: Left message to call AND speak to nurse re: Coumadin. Maritza Preston LPN [facility] 10-12-2022 Note HNO ID: [id number] Author: Jimbo Carias APRN.TROLLEY CAR OPERATOR Service: ? Author Type: Nurse Specialist Type: Progress Notes Filed: 10/13/2022 10:06 AM Note Text: Okay to change coumadin dose to 5mg Mon,Wed and 7.5mg all other days and recheck inr in 2 weeks [facility] 10-12-2022 History of Presen t illness Narrative Left message to call & speak to nurse re: Coumadin. Maritza Preston LPN Okay to change coumadin dose to 5mg Mon,Wed and 7.5mg all other days and recheck inr in 2 weeks patient had inr completed at [facility] patients inr is 1.5 (patients inr range is 1.7-2.2) patient is currently taking 7.5mg Tues,Thurs,Sun and 5mg all other days patients last dose change was on 09/14/22 due to a high level of 2.4 (dose at that time was 5mg Mon,Wed,Fri and 7.5mg all other days) patient has had no changes in medication and no missed doses and no change in diet Recommend: patient change coumadin dose to 5mg Mon,Wed and 7.5mg all other days and recheck inr in 2 weeks Patient has been scheduled for a 2 week follow up inr on 10/26/22 Please review and advise on recommendation documented in this encounter [facility] 10-12-2022 Note HNO ID: [id number] Author: Flex Means RN Service: ? Author Type: ? Type: Progress Notes Filed: 10/13/2022 10:06 AM Note Text: patient had inr completed at [facility] patients inr is 1.5 (patients inr range is 1.7-2.2) patient is currently taking 7.5mg Tues,Thurs,Sun and 5mg all other days patients last dose change was on 09/14/22 due to a high level of 2.4 (dose at that time was 5mg Mon,Wed,Fri and 7.5mg all other days) patient has had no changes in medication and no missed doses and no change in diet Recommend: patient change coumadin dose to 5mg Mon,Wed and 7.5mg all other days and recheck inr in 2 weeks Patient has been scheduled for a 2 week follow up inr on 10/26/22 Please review and advise on recommendation [facility] 10-09-2022 Miscellaneous Notes Patient does not take twice daily every day. Benefits have outweighed the risks. Has been to cardiology and rheumatology for follow up. Labs through [facility]--CBC and LFTs and Cr fine. The following approved medication requests have been transmitted electronically. Requested Prescriptions Signed Prescriptions Disp Refills naproxen (NAPROSYN) 500 mg tablet 120 tablet 3 Sig: Take 1 tablet by mouth twice daily as needed. Take with food Authorizing Provider: CLAUDINE DURÁN MD Patient has been identified by name and date of : Yes Patient phones for refill(s): Requested Prescriptions Pending Prescriptions Disp Refills naproxen (NAPROSYN) 500 mg tablet 120 tablet 3 Sig: Take 1 tablet by mouth twice daily as needed. Take with food Date of last office visit in primary care: [facility] 07/11/22 NOV 10/27/22 Last 2 Encounter Wt Readings: Date: Wt: 08/29/2022 58.5 kg (129 lb) 07/20/2022 58.1 kg (128 lb) Please advise. Thank you. CARMEN Viveros documented in this encounter [facility] 09-28-2022 Note HNO ID: [id number] Author: Jimbo Carias APRN.TROLLEY CAR OPERATOR Service: ? Author Type: Nurse Specialist Type: Progress Notes Filed: 09/28/2022 4:12 PM Note Text: Continue with Coumadin dose unchanged and check INR in 2 weeks [facility] 09-28-2022 Note HNO ID: [id number] Author: Flex Means RN Service: ? Author Type: ? Type: Progress Notes Filed: 09/28/2022 4:12 PM Note Text: patient had inr completed at [facility] patients inr is 1.8 (patients inr range is 1.7-2.2) patient is currently taking 7.5mg Tues,Thurs,Sun and 5mg all other days patients last dose change was on 09/14/22 due to a high level of 2.4 (dose at that time was 5mg Mon,Wed,Fri and 7.5mg all other days) patient has had no changes in medication except for coumadin and no missed doses and no change in diet Advised patient to continue on the same dose(s) and that they would only be contacted regarding dosage and follow up instructions after review with provider, if a change is needed. Written instructions given and patient verbalized understanding. Presently scheduled in 2 weeks (10/12/22) for follow up INR since this is the first normal reading since dose change [facility] 09-25-2022 Miscellaneous Notes Called PT and put in her my chart about Echo shows that the heart pumping function is normal. There is a little stiffening of the muscle making it difficult for the heart to relax fully. There is no medication to treat this. We recommend good blood pressure control and low salt diet. There has been no significant worsening of your aortic valve. I do see a little increase in the mitral valve stenosis (narrowing) with some enlargement of the left upper chamber. We would monitor this again in a year. I would recommend that she follow up with Dr. Ambriz in 6 months with repeat echo in 1 year. Thanks ~ JJ Echo shows that the heart pumping function is normal. There is a little stiffening of the muscle making it difficult for the heart to relax fully. There is no medication to treat this. We recommend good blood pressure control and low salt diet. There has been no significant worsening of your aortic valve. I do see a little increase in the mitral valve stenosis (narrowing) with some enlargement of the left upper chamber. We would monitor this again in a year. I would recommend that she follow up with Dr. Ambriz in 6 months with repeat echo in 1 year. Thanks ~ JJ documented in this encounter [facility] 09-15-2022 Miscellaneous Notes Pt called and is notified of providers results and instructions. Pt voices understanding. Muna Porter RN Message left to pts home number with instructions and requested return call to verify pt rec'd them. INR remains a bit above target. 7.5 mg Sunday, 5 mg all other days. Check INR 2 weeks Patient returning call to verify coumadin dosage and information as follows: Last INR: 2.4 09/14/2022 Current dose of coumadin is: 5 mg on Mon, Wed and Fri and 7.5 mg all other days Last date of dose change: 09/07/22. Previous INR (date and result): 09/07/22 was 2.4 Additional Clinical Information or narrative: INR goal is 1.7-2.2 -no unusual bleeding or bruising -no diet changes -no missed doses -no recent antibiotic use Please advise patient. Thank you. Last INR: 2.4 09/14/2022 Current dose of coumadin is: . Last date of dose change: 09/07/22. Previous INR (date and result): 09/07/22 was 2.4 Additional Clinical Information or narrative: INR goal is 1.7-2.2 Message left for p to return call to a nurse to verify coumadin dose and pt findings. documented in this encounter [facility] 09-07-2022 Note HNO ID: [id number] Author: Flex Means RN Service: ? Author Type: ? Type: Progress Notes Filed: 09/07/2022 4:08 PM Note Text: PATIENT NOTIFIED OF INFORMATION [facility] 09-07-2022 Note HNO ID: [id number] Author: Jimbo Carias APRN.CNS Service: ? Author Type: Nurse Specialist Type: Progress Notes Filed: 09/07/2022 4:08 PM Note Text: Okay for 5 mg Coumadin Sunday and 7.5 mg all other days. Recheck INR in 1 week [facility] 09-07-2022 History of Presen t illness Narrative PATIENT NOTIFIED OF INFORMATION Okay for 5 mg Coumadin Sunday and 7.5 mg all other days. Recheck INR in 1 week patient had inr completed at [facility] patients inr is 2.4 (patients inr range is 1.7-2.2) patient is currently taking 5mg Mon,Wed and 7.5mg all other days patients last dose change was on 07/13/22 due to a low level of 1.5 (dose at that time was 5mg Mon,Wed,Fri and 7.5mg all other days) patient has had no changes in medication and no missed doses and no change in diet Recommend that patient go to 5mg Mon,Wed,Fri and 7.5mg all other days and recheck inr in 1 week at the lab due to the cc will be closed for the next 3 weeks patient has been scheduled at that [facility] for an inr follow up 09/14/22 (order is already in place) please review and advise on recommendation documented in this encounter [facility] 09-07-2022 Note HNO ID: [id number] Author: Flex Means RN Service: ? Author Type: ? Type: Progress Notes Filed: 09/07/2022 4:08 PM Note Text: patient had inr completed at [facility] patients inr is 2.4 (patients inr range is 1.7-2.2) patient is currently taking 5mg Mon,Wed and 7.5mg all other days patients last dose change was on 07/13/22 due to a low level of 1.5 (dose at that time was 5mg Mon,Wed,Fri and 7.5mg all other days) patient has had no changes in medication and no missed doses and no change in diet Recommend that patient go to 5mg Mon,Wed,Fri and 7.5mg all other days and recheck inr in 1 week at the lab due to the cc will be closed for the next 3 weeks patient has been scheduled at that them for an inr follow up 09/14/22 (order is already in place) please review and advise on recommendation [facility] 08-29-2022 Note HNO ID: [id number] Author: Rachelle Lai APRN.CHUTE PULLER Service: ? Author Type: Nurse Practitioner Type: Progress Notes Filed: 09/11/2022 10:01 AM Note Text: [facility] [place] [facility] Department of Cardiovascular Medicine SECTION OF CLINICAL CARDIOLOGY OUTPATIENT VISIT DATE August 29, 2022 OUTPATIENT VISIT TYPE ESTABLISHED Elements of this note, including but not limited to HPI, ROS, Physical Exam, Assessment and Plan were copied and pasted from previous office visit notes completed within our department. Updates have been made where appropriate/noted and reflect current exam and medical decision making from date of this visit. Patient Name: Haydee Bustamante : 1945 PRIMARY CARE PHYSICIAN: Claudine Durán MD CHIEF COMPLAINT: Patient presents with: CARD Follow Up Annual: No new cardiac concerns Interval Hx: Ms. Bustamante comes for a follow up visit. The last office visit visit with Dr. Ambriz was 08/12/2022. Patient with 0 hospitalizations or ER visits since last OV. Since last office visit patient has been feeling good. No chest pain No SOB Occasional D/L --> no syncope Has stress fx in left great tow- in a boot. 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 Not checking BP at home Cut out caffeine - less than before No palps Appetite is good Fair water intake --> ? Adequate hydration Sleep is pretty good. Some nights she does sleep well if she is stressed. No LE IMPRESSION/PLAN: ASSESSMENT/PLAN: 1. Aortic stenosis with bicuspid valve - ICD9: 746.3, 746.4, ICD10: Q23.0, Q23.1 (primary diagnosis) - echo 08/2021: EF 68%, grade I DD. moderate aortic valve stenosis caused by calcified valve. There is trace aortic valve regurgitation. There is moderate thickening. There is moderate calcification. The peak gradient is 42 mmHg (peak velocity = 322.9 cm/s). The mean gradient is 22 mmHg. - recheck echo - ECHO 2. Essential hypertension - ICD9: 401.9, ICD10: I10 - fair control on Irbesartan / HCTZ - Continue current medications - Recommend home blood pressure monitoring, to bring results to next visit. She was advised to notify the office if her blood pressure remained greater than 140 mmHg for 3 consecutive days for consideration of change in therapy. - Encouraged sodium restriction, DASH or Mediterranean diet - Recommend regular aerobic exercise - Reviewed risks of hypertension and principles of treatment 3. History of recurrent deep vein thrombosis (DVT) - ICD9: V12.51, ICD10: Z86.718 - continue Warfarin I spent a total of 29 minutes on the date of the service which included preparing to see the patient, [id number] patient care, completing clinical documentation, performing a medically appropriate examination, counseling and educating the patient/family/caregiver, ordering medications, tests, or procedures, and communicating results to the patient/family/caregiver. Thank you very much for allowing me to assist in the care of Haydee Bustamante. The above information was discussed at length and detail with the patient who verbalized an understanding of the plan and was given ample opportunity to ask questions. The appropriate follow up has been arranged. I have advised the patient to contact me if any questions/problems arise prior to the follow up. Rachelle Lai APRN.[facility] Cardiology Nurse Practitioner Section of Regional Cardiology [facility] Dept of Cardiovascular Medicine [facility] Heart and Vascular [place] [address] [place] [address] Office Office August 29, 2022 7:46 AM This note was partially generated using [employer] voice recognition system and may contain errors related to that system including grammar, punctuation, spelling, and words that may be inappropriate. CARDIAC STUDIES: LV Ejection Fraction (%) Date Value 09/05/2021 68 04/09/2018 60 03/14/2018 66 Last ECHO Result Conclusion ECHO Collected: 09/05/2021 10:11 AM (Final result) Impression: CONCLUSIONS: - Exam indication: Routine surveillance of moderate or severe valvular stenosis (>1yr) - The left ventricle is normal in size. There is mild concentric left ventricular hypertrophy. Left ventricular systolic function is normal. EF = 68 ? 5% (2D biplane) Grade I left ventricular diastolic dysfunction. - The right ventricle is normal in size. Right ventricular systolic function is normal. - There is moderate aortic valve stenosis caused by calcified valve. AV area is 0.90 cm? (0.55 cm?/m?) by continuity, VTI. The peak gradient is 42 mmHg, the mean gradient is 22 mmHg and the dimensionless valve index is 0.32. Prior pk/mn gradients were 24/13 mmHg. - Exam was compared with the prior CC echocardiographic exam performed on 03/14/2018, AV disease has progressed. :5 (more content not included)... [facility] 08-29-2022 Instructions Rachelle Lai APRN.CNP - 08/29/2022 9:51 AM EDT Please schedule an echo to reevaluate your aortic valve. Continue same medications for now - please check your blood pressure at home ---> if your blood pressure is over 140 on the top number for 3 consecutive days I might consider changing your therapy. Low salt diet Good fluid intake ---> 54-60 oz of non caffeine beverage per day Follow up in 6 months documented in this encounter [facility] 08-29-2022 History of Presen t illness Narrative Images from the original note were not included. Heart and Vascular [place] [facility] Department of Cardiovascular Medicine SECTION OF CLINICAL CARDIOLOGY OUTPATIENT VISIT DATE August 29, 2022 OUTPATIENT VISIT TYPE ESTABLISHED Elements of this note, including but not limited to HPI, ROS, Physical Exam, Assessment and Plan were copied and pasted from previous office visit notes completed within our department. Updates have been made where appropriate/noted and reflect current exam and medical decision making from date of this visit. Patient Name: Haydee Bustamante : 1945 PRIMARY CARE PHYSICIAN: Claudine Durán MD CHIEF COMPLAINT: Patient presents with: CARD Follow Up Annual: No new cardiac concerns Interval Hx: Ms. Bustamante comes for a follow up visit. The last office visit visit with Dr. Ambriz was 08/12/2022. Patient with 0 hospitalizations or ER visits since last OV. Since last office visit patient has been feeling good. No chest pain No SOB Occasional D/L --> no syncope Has stress fx in left great tow- in a boot. 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 Not checking BP at home Cut out caffeine - less than before No palps Appetite is good Fair water intake --> ? Adequate hydration Sleep is pretty good. Some nights she does sleep well if she is stressed. No LE IMPRESSION/PLAN: ASSESSMENT/PLAN: 1. Aortic stenosis with bicuspid valve - ICD9: 746.3, 746.4, ICD10: Q23.0, Q23.1 (primary diagnosis) - echo 08/2021: EF 68%, grade I DD. moderate aortic valve stenosis caused by calcified valve. There is trace aortic valve regurgitation. There is moderate thickening. There is moderate calcification. The peak gradient is 42 mmHg (peak velocity = 322.9 cm/s). The mean gradient is 22 mmHg. - recheck echo - ECHO 2. Essential hypertension - ICD9: 401.9, ICD10: I10 - fair control on Irbesartan / HCTZ - Continue current medications - Recommend home blood pressure monitoring, to bring results to next visit. She was advised to notify the office if her blood pressure remained greater than 140 mmHg for 3 consecutive days for consideration of change in therapy. - Encouraged sodium restriction, DASH or Mediterranean diet - Recommend regular aerobic exercise - Reviewed risks of hypertension and principles of treatment 3. History of recurrent deep vein thrombosis (DVT) - ICD9: V12.51, ICD10: Z86.718 - continue Warfarin I spent a total of 29 minutes on the date of the service which included preparing to see the patient, [id number] patient care, completing clinical documentation, performing a medically appropriate examination, counseling and educating the patient/family/caregiver, ordering medications, tests, or procedures, and communicating results to the patient/family/caregiver. Thank you very much for allowing me to assist in the care of Haydee Bustamante. The above information was discussed at length and detail with the patient who verbalized an understanding of the plan and was given ample opportunity to ask questions. The appropriate follow up has been arranged. I have advised the patient to contact me if any questions/problems arise prior to the follow up. Rachelle Lai APRN.[facility] Cardiology Nurse Practitioner Section of [facility] Cardiology [facility] Dept of Cardiovascular Medicine [facility] Heart and Vascular [place] [address] [address] Office Office August 29, 2022 7:46 AM This note was partially generated using Impact[employer] voice recognition system and may contain errors related to that system including grammar, punctuation, spelling, and words that may be inappropriate. CARDIAC STUDIES: LV Ejection Fraction (%) Date Value 09/05/2021 68 04/09/2018 60 03/14/2018 66 Last ECHO Result Conclusion ECHO Collected: 09/05/2021 10:11 AM (Final result) Impression: CONCLUSIONS: - Exam indication: Routine surveillance of moderate or severe valvular stenosis (>1yr) - The left ventricle is normal in size. There is mild concentric left ventricular hypertrophy. Left ventricular systolic function is normal. EF = 68 5% (2D biplane) Grade I left ventricular diastolic dysfunction. - The right ventricle is normal in size. Right ventricular systolic function is normal. - There is moderate aortic valve stenosis caused by calcified valve. AV area is 0.90 cm (0.55 cm /m ) by continuity, VTI. The peak gradient is 42 mmHg, the mean gradient is 22 mmHg and the dimensionless valve index is 0.32. Prior pk/mn gradients were 24/13 mmHg. - Exam was compared with the prior [facility] echocardiographic exam performed on 03/14/2018, AV disease has progressed. * * * Final * * * Last CT Result Conclusion CT CHEST WO IVCON Exam End: 07/20/2022 9:22 AM (Final result) Impression: IMPRESSION: Findings again suggestive of an evolving infectious/inflammatory process such as ROQUE infection with mild bronchiectasis most pronounced in the right middle lobe and lingula and with scattered centrilobular tree-in-bud type subcentimeter nodules. While certain areas appear slightly improved, certain areas have progressed in the interval, as described. Stable in size 1.2 cm left lower lobe irregular nodule with faint calcifications suggesting calcified granuloma. [employer] Therapist[facility] Transcribe Date/Time: Jul 24 2022 10:02A Dictated by : HAYLEY ZELAYA MD This examination was interpreted and the report reviewed and electronically signed by: HAYLEY ZELAYA MD on Jul 24 2022 10:17AM EST LABS: Sodium (mmol/L) Date Value 07/07/2020 135 09/10/2018 134 Potassium (mmol/L) Date Value 07/07/2020 4.0 09/10/2018 4.2 BUN (mg/dL) Date Value 07/07/2020 22 09/10/2018 19 06/11/2018 20 05/24/2018 14 Creatinine (mg/dL) Date Value 07/07/2020 0.77 07/07/2020 0.77 09/10/2018 0.62 06/11/2018 0.89 Magnesium (mg/dL) Date Value 07/07/2020 1.8 04/23/2018 1.9 Hemoglobin (g/dL) Date Value 07/07/2020 11.9 05/18/2020 12.9 No results found for: PROBNP No results found for: HSTNT Cholesterol, Total (mg/dL) Date Value 07/07/2021 184 12/28/2015 206 HDL Cholesterol (mg/dL) Date Value 07/07/2021 64 12/28/2015 57 Triglyceride (mg/dL) Date Value 07/07/2021 50 12/28/2015 82 LDL Cholesterol (mg/dL) Date Value 07/07/2021 110 12/28/2015 133 TSH (uU/mL) Date Value 12/28/2015 1.290 PT INR (no units) Date Value 07/07/2021 1.7 INR (POCT) (no units) Date Value 08/10/2022 2.1 EKG completed in the office today shows normal sinus rhythm, ventricular rate 75 bpm. Biatrial enlargement, nonspecific T wave abnormality. I have personally reviewed the Electrocardiogram. PHYSICAL EXAMINATION: Vitals: BP 142/78 Pulse 75 Ht 162.6 cm (5' 4 ) Wt 58.5 kg (129 lb) SpO2 98% BMI 22.14 kg/m General: Well appearing, in no acute distress. Skin: No clubbing, no cyanosis. Eyes: Extra ocular movements intact Oropharynx: Teeth in good repair. Neck: No jugular venous distention, no carotid bruits, carotids have a normal upstroke, no palpable thyromegaly. Lungs: Clear to auscultation bilaterally, no wheezing or rhonchi. Heart: Regular rhythm, PMI not displaced, S1, S2 normal, no S3, no S4, no heaves, no rub and + systolic murmur. Abdomen: Soft, nontender, bowel sounds normal, no palpable organomegaly, no bruits. Extremities: No peripheral edema . Grade 2/4 distal pulses bilaterally. Neuro: Oriented to person, place and time, alert, cooperative, gait coordinated. REVIEW OF SYSTEMS: GENERAL: Negative for: Weight loss or gain, Fever or Chills, Weakness and Sleep difficulties. HEENT: Negative for: Headache, Impaired Vision, Glasses, Hearing Impairment, Ringing in Ears, Nosebleeds, Poor dental care, Bleeding Gums, Dentures NECK: Negative for: Swelling, Pain, Stiffness RESPIRATORY: Negative for: Cough, Blood in Sputum, Shortness of breath, Wheezing, Apnea GASTROINTESTINAL: Negative for: Trouble swallowing, Heartburn, Change in bowel habits, Blood in stool, Dark black stools MUSCULOSKELETAL: Negative for: Muscle or joint pain, Stiffness , Joint swelling NEUROLOGIC/PSYCHIATRIC: Negative for: Weakness, Paralysis, Numbness, Tingling, Tremor, Nervousness, Depressed mood, Memory loss SKIN: Negative for: Rashes, Itching HEMATOLOGICAL/LYMPHATIC: Negative for: Easy bruising , Easy bleeding ENDOCRINE: Negative for: Heat or cold intolerance, Excessive sweating, Frequent urination, Frequent thirst ALLERGIES: Penicillins PAST MEDICAL HISTORY: PAST MEDICAL HISTORY Diagnosis Date Anemia Bone marrow involvement with histoplasmosis Bronchiectasis (HCC) COPD (chronic obstructive pulmonary disease) ([facility]) Disseminated histoplasmosis Colitis, immunosuppression, 01/2018. Diverticulosis of colon (without mention of hemorrhage) Diverticulosis DVT, recurrent, lower extremity, acute ([facility]) 12/10/2014 Esophageal reflux Hiatal hernia 02/25/2018 Hypertension Lung nodule Personal history of unspecified urinary disorder 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 rheumatoid factor (HCC) 03/07/2015 Dr. Hurley ([facility]) Unspecified hemorrhoids without mention of complication Hemorrhoids SOCIAL HISTORY: Social History Tobacco Use Smoking status: Former Packs/day: 1.00 Years: 10.00 Total pack years: 10.00 Types: Cigarettes Quit date: 02/19/1989 Years since quittin.5 Smokeless tobacco: Never Tobacco comments: Late heavy smoker. Vaping Use Vaping Use: Never used Substance Use Topics Alcohol use: Yes Comment: occasional Drug use: No FAMILY HISTORY: FAMILY HISTORY Problem Relation Age of Onset Cancer Mother brain I have confirmed and edited as necessary, the PFSH and ROS obtained by others. Rachelle Lai, NEEDLE BAR MOLDER.CHUTE PULLER CURRENT MEDICATIONS: Current Outpatient Medications Medication Sig budesonide-formoterol (SYMBICORT) 160-4.5 mcg/actuation inhaler Inhale 2 Puffs as instructed twice daily. fluticasone (FLONASE) 50 mcg/actuation nasal spray Use 1 [place] in each nostril once daily. warfarin (COUMADIN) 5 mg tablet Take 7.5 mg , Sun,Sun, Sun, Sun; and 5 mg on Sunday and Sunday pantoprazole DR (PROTONIX) 40 mg tablet Take 1 tablet by mouth once daily. albuterol HFA (PROAIR HFA) 90 mcg/actuation inhaler Inhale 2 Puffs as instructed every 4 hours as needed. vit A,C,V-Yhvl-Lrylop (OCUVITE PRESERVISION) 2,148 mcg-113 mg-45 mg-17.4mg tab Take 2 tablets by mouth daily with breakfast. potassium chloride ER (KLOR-CON M20) 20 mEq tablet Take 1 tablet by mouth twice daily. naproxen (NAPROSYN) 500 mg tablet Take 1 tablet by mouth twice daily as needed. Take with food gabapentin (NEURONTIN) 300 mg capsule Take 1 capsule by mouth twice daily. tiotropium bromide (SPIRIVA RESPIMAT) 2.5 mcg/actuation inhaler Inhale 2 Puffs as instructed once daily. Inhale two puffs once daily. Irbesartan-hydroCHLOROthiazide 150-12.5 mg per tablet Take 1 tablet by mouth once daily. leucovorin (LEUCOVORIN) 15 mg tablet Take 15 mg by mouth once daily. HUMIRA PEN 40 mg/0.8 mL pnkt Inject 40 mg subcutaneously. Every other week. methotrexate 2.5 mg tablet Take 2.5 mg by mouth every Sunday. PT takes 2 tablets in am and 1 tablets in pm Cholecalciferol, Vitamin D3, 1,000 unit ORAL Cap Take 1 capsule by mouth once daily. omega-3 fatty acids/vitamin e(FISH OIL 1,000 MG CAP) Take one(1) capsule daily. THERAPEUTIC MULTIVITAMIN TAB Take one(1) tablet daily. Current Facility-Administered Medications Medication Dose Route Frequency perflutren lipid microspheres 1.3 mL in NaCl (PF) 0.9% 10 mL injection (DEFINITY) INTRAVENOUS DIRECTED PRN sodium chloride 0.9 % (flush) 10 mL (BD POSIFLUSH) 10 mL INTRAVENOUS DIRECTED PRN documented in this encounter [facility] 08-15-2022 Miscellaneous Notes GEREMIAS 07/20/22 Patient phones requesting refills as follows: Requested Prescriptions Pending Prescriptions Disp Refills budesonide-formoterol (SYMBICORT) 160-4.5 mcg/actuation inhaler Sig: Inhale as instructed twice daily. Please review and advise. Magalie Ngo LPN documented in this encounter [facility] 08-13-2022 Miscellaneous Notes Glad doing better. Thanks for update. Pt calls office /c update. She states she is on her 4th day of prednisone and she is feeling much better, feeling great. She states her pain is cut in half now. Bakari Catalan LPN documented in this encounter [facility] 08-10-2022 Note HNO ID: [id number] Author: Maritza Preston LPN Service: ? Author Type: ? Type: Progress Notes Filed: 08/10/2022 4:48 PM Note Text: Left below on identified vm, asked Patient to call back to let the office know she did receive. Maritza Preston LPN [facility] 08-10-2022 Note HNO ID: [id number] Author: Jimbo Carias APRN.TROLLEY CAR OPERATOR Service: ? Author Type: Nurse Specialist Type: Progress Notes Filed: 08/10/2022 4:48 PM Note Text: Continue with Coumadin dose unchanged and check INR in 4 weeks [facility] 08-10-2022 Note HNO ID: [id number] Author: Flex Means RN Service: ? Author Type: ? Type: Progress Notes Filed: 08/10/2022 4:48 PM Note Text: patient had inr completed at [facility] patients inr is 2.1 (patients inr range is 1.7-2.2) patient is currently taking 5mg Mon,Wed and 7.5mg all other days patients last dose change was on 07/13/22 due to a low level of 1.5 (dose at that time was 5mg Mon,Wed, Fri and 7.5mg all other days) patient has had no changes in medication and no missed doses and no change in diet Advised patient to continue on the same dose(s) and that they would only be contacted regarding dosage and follow up instructions after review with provider, if a change is needed. Written instructions given and patient verbalized understanding. Presently scheduled in 4 weeks (09/07/22) for follow up INR. [facility] 07-27-2022 Note HNO ID: [id number] Author: Maritza Preston LPN Service: ? Author Type: ? Type: Progress Notes Filed: 07/27/2022 3:20 PM Note Text: Below left on identified vm. Patient is already scheduled in 2 weeks. Maritza Preston LPN [facility] 07-27-2022 Note HNO ID: [id number] Author: Jimbo Carias APRN.TROLLEY CAR OPERATOR Service: ? Author Type: Nurse Specialist Type: Progress Notes Filed: 07/27/2022 3:20 PM Note Text: Continue with current dosing and check INR 2 weeks [facility] 07-27-2022 Note HNO ID: [id number] Author: Flex Means RN Service: ? Author Type: ? Type: Progress Notes Filed: 07/27/2022 3:20 PM Note Text: patient had inr completed at [facility] patients inr is 1.7 (patiens inr range is 1.7-2.2) patient is currently taking 5mg Mon,Wed and 7.5mg all other days patients last dose change was on 07/13/22 due to a low level of 1.5 (dose at that time was 5mg Mon,Wed,Fri and 7.5mg all other days) patient has had no changes in medication except for coumadin and no missed doses and no change in diet Advised patient to continue on the same dose(s) and that they would only be contacted regarding dosage and follow up instructions after review with provider, if a change is needed. Written instructions given and patient verbalized understanding. Presently scheduled in 2 weeks (08/10/22) for follow up INR since this is the first normal reading since dose change [facility] 07-20-2022 Note HNO ID: [id number] Author: Florence Terry MD Service: ? Author Type: Physician Type: Progress Notes Filed: 07/25/2022 12:42 PM Note Text: . Respiratory [place] Note Patient name: Haydee Bustamante PCP: Claudine Durán MD CC: Follow-up chest CT HPI: Haydee Bustamante 77 year old female former 10 pack year smoker with PMH significant for RA (MTX, Humira), HTN, h/o disseminated Histoplasmosis, bronchiectasis, , VTE, pulmonary nodules, who presents for follow-up. Current inhaled therapy with Symbicort and Spiriva. At [facility] with me, she was a new patient to me formerly followed by Dr. Andujar. She had a h/o abnormal chest CT with tree-in-bud infiltrates and a LLL nodular infiltrate in 2019. Recommended updated chest CT for two years stability. Chest CT shows stable left lower lobe nodule but new cluster of nodules in her right lower lobe, persistent bronchiectasis without mucous plugging. She has daily cough with mucus production that is clear sometimes difficult to expectorate, thick and stringy . She has mucus clearance devices but does not consistently use. No wheezing, hemoptysis, chest pain, or shortness of breath. Respiratory symptoms do not interfere with her singing. She is compliant with use of her inhaled therapy. No recent bronchitis or hospitalization. She is due for her yearly echocardiogram to evaluate her bicuspid valve. No symptoms of heart failure. She has significant RA of multiple joints with positive RF on DMD, with probable RA lung (bronchiectasis). Follows with rheumatology. DATA: Labs: Component Ref Range AND Units 2 d ago Alpha 1 Antitrypsin 90 - 200 mg/dL 124 Imaging / Diagnostic Studies: DATE OF EXAM: Jul 20 2022 9:22AM [facility] [id number] - CT CHEST WO IVCON / PROCEDURE REASON: Lung nodules Comparison: CT chest dated March 11, 2019 RESULT: Limitations: None. Lines, tubes, and devices: None. Lung parenchyma and airways: Mild biapical pleural parenchymal scarring. Mild scattered bronchiectasis with bronchial wall thickening, again while mild most pronounced in the right middle lobe and lingula. Mild mucous plugging in the right middle lobe. Stable punctate 2 mm right middle lobe nodule. There are bilateral scattered centrilobular tree-in-bud type subcentimeter nodules. While certain areas persist the inferior improved for example a right upper lobe, similar in areas have progressed for example a mean medial right lower lobe where a cluster of nodules is present with the individual nodules measuring up to 5 to 6 mm in size. Findings are suggestive of an evolving infectious/inflammatory process such as ROQUE infection. There is a stable in size in irregularly marginated nodular density in the left lower lobe measuring up to 1.2 cm with suggestion of faint calcification suggesting it reflects a calcified granuloma. Pleural space: No pleural effusion. No pleural thickening. Lower neck, lymph nodes, and mediastinum: The imaged thyroid gland is normal. Calcified mediastinal lymph node compatible with the sequela of prior granulomatous exposure. Heart, pericardium, and thoracic vessels: There is scattered atherosclerotic calcification of the thoracic aorta and visualized great vessels. There are calcifications of the aortic valve, a finding which may be seen in the setting of aortic stenosis. The thoracic aorta and main pulmonary artery are normal in caliber. The cardiac chambers are normal in size. Coronary artery atherosclerotic calcifications are noted, although the study is not optimized for coronary assessment. Trace pericardial fluid. Bones and soft tissues: Degenerative changes. Upper abdomen: Miniscule hiatal hernia. Atherosclerotic calcification of the vasculature. No additional abnormality in the imaged upper abdomen within the limits of noncontrast technique.. Derrick Builder (topogram) images: IVC filter present IMPRESSION: Findings again suggestive of an evolving infectious/inflammatory process such as ROQUE infection with mild bronchiectasis most pronounced in the right middle lobe and lingula and with scattered centrilobular tree-in-bud type subcentimeter nodules. While certain areas appear slightly improved, certain areas have progressed in the interval, as described. Stable in size 1.2 cm left lower lobe irregular nodule with faint calcifications suggesting calcified granuloma. I personally reviewed the images and agree with the above assessment. Chest CT 02/2019: IMPRESSION: Mild emphysema with mild, diffuse bronchiectasis. Again seen are regions of impaction and tree-in-bud type opacity within both lungs, most severe within the lingula and right middle lobe. Although findings suggest multifocal infection, possibly Mycobacterium avium intracellulare. Stable appearing nodular density seen within left lower lobe, measuring approximately 1.2 cm. Again seen are prominent, not pathologi (more content not included)... [facility] 07-20-2022 Note HNO ID: [id number] Author: RT Edwin(R) Service: ? Author Type: Jewel Inspector Type: Progress Notes Filed: 07/20/2022 9:35 AM Note Text: Radiology Service Progress Note PATIENT NAME: Haydee Bustamante DATE OF SERVICE: July 20, 2022 TIME: 9:35 AM PATIENT IDENTITY VERIFICATION COMPLETED USING TWO (2) IDENTIFIERS: Name and Date of confirmed by patient verbally. FALL SCREENING: Has the patient had 2 falls in the last year or 1 fall with injury or currently using an Ambulatory Assistive Device (Walker, Cane, Wheelchair, Crutches, etc.)? No PATIENT GENDER DATA: Female. status: : No status: NO. PATIENT RELEVANT IMPLANT DATA REVIEWED: Yes RADIOLOGY DEPARTMENT: CT; Exam(s) Completed: Chest PERIPHERAL IV DATA: Not applicable SIGNED BY: RT Maryann(R) July 20, 2022 9:35 AM [facility] 07-20-2022 History of Presen t illness Narrative Images from the original note were not included. . [facility] [place] Note Patient name: Haydee Bustamante PCP: Claudine Durán MD CC: Follow-up chest CT HPI: Haydee Bustamante 77 year old female former 10 pack year smoker with PMH significant for RA (MTX, Humira), HTN, h/o disseminated Histoplasmosis, bronchiectasis, , VTE, pulmonary nodules, who presents for follow-up. Current inhaled therapy with Symbicort and Spiriva. At [facility], she was a new patient to [facility] formerly followed by Dr. Andujar. She had a h/o abnormal chest CT with tree-in-bud infiltrates and a LLL nodular infiltrate in 2020. Recommended updated chest CT for two years stability. Chest CT shows stable left lower lobe nodule but new cluster of nodules in her right lower lobe, persistent bronchiectasis without mucous plugging. She has daily cough with mucus production that is clear sometimes difficult to expectorate, thick and stringy . She has mucus clearance devices but does not consistently use. No wheezing, hemoptysis, chest pain, or shortness of breath. Respiratory symptoms do not interfere with her singing. She is compliant with use of her inhaled therapy. No recent bronchitis or hospitalization. She is due for her yearly echocardiogram to evaluate her bicuspid valve. No symptoms of heart failure. DATA: Labs: Component Ref Range & Units 2 d ago Alpha 1 Antitrypsin 90 - 200 mg/dL 124 Imaging / Diagnostic Studies: DATE OF EXAM: Jul 20 2022 9:22AM [facility] [id number] - CT CHEST WO IVCON / PROCEDURE REASON: Lung nodules Comparison: CT chest dated March 11, 2019 RESULT: Limitations: None. Lines, tubes, and devices: None. Lung parenchyma and airways: Mild biapical pleural parenchymal scarring. Mild scattered bronchiectasis with bronchial wall thickening, again while mild most pronounced in the right middle lobe and lingula. Mild mucous plugging in the right middle lobe. Stable punctate 2 mm right middle lobe nodule. There are bilateral scattered centrilobular tree-in-bud type subcentimeter nodules. While certain areas persist the inferior improved for example a right upper lobe, similar in areas have progressed for example a mean medial right lower lobe where a cluster of nodules is present with the individual nodules measuring up to 5 to 6 mm in size. Findings are suggestive of an evolving infectious/inflammatory process such as ROQUE infection. There is a stable in size in irregularly marginated nodular density in the left lower lobe measuring up to 1.2 cm with suggestion of faint calcification suggesting it reflects a calcified granuloma. Pleural space: No pleural effusion. No pleural thickening. Lower neck, lymph nodes, and mediastinum: The imaged thyroid gland is normal. Calcified mediastinal lymph node compatible with the sequela of prior granulomatous exposure. Heart, pericardium, and thoracic vessels: There is scattered atherosclerotic calcification of the thoracic aorta and visualized great vessels. There are calcifications of the aortic valve, a finding which may be seen in the setting of aortic stenosis. The thoracic aorta and main pulmonary artery are normal in caliber. The cardiac chambers are normal in size. Coronary artery atherosclerotic calcifications are noted, although the study is not optimized for coronary assessment. Trace pericardial fluid. Bones and soft tissues: Degenerative changes. Upper abdomen: Miniscule hiatal hernia. Atherosclerotic calcification of the vasculature. No additional abnormality in the imaged upper abdomen within the limits of noncontrast technique.. Derrick Builder (topogram) images: IVC filter present IMPRESSION: Findings again suggestive of an evolving infectious/inflammatory process such as ROQUE infection with mild bronchiectasis most pronounced in the right middle lobe and lingula and with scattered centrilobular tree-in-bud type subcentimeter nodules. While certain areas appear slightly improved, certain areas have progressed in the interval, as described. Stable in size 1.2 cm left lower lobe irregular nodule with faint calcifications suggesting calcified granuloma. I personally reviewed the images and agree with the above assessment. Chest CT 02/2019: IMPRESSION: Mild emphysema with mild, diffuse bronchiectasis. Again seen are regions of impaction and tree-in-bud type opacity within both lungs, most severe within the lingula and right middle lobe. Although findings suggest multifocal infection, possibly Mycobacterium avium intracellulare. Stable appearing nodular density seen within left lower lobe, measuring approximately 1.2 cm. Again seen are prominent, not pathologically enlarged mediastinal and bilateral hilar lymph nodes, likely reactive. PAST MEDICAL HISTORY Diagnosis Date Anemia Bone marrow involvement with histoplasmosis Bronchiectasis (HCC) COPD (chronic obstructive pulmonary disease) (HCC) Disseminated histoplasmosis Colitis, immunosuppression, 01/2018. Diverticulosis of colon (without mention of hemorrhage) Diverticulosis DVT, recurrent, lower extremity, acute (HCC) 12/10/2014 Esophageal reflux Hiatal hernia 02/25/2018 Hypertension Lung nodule Personal history of unspecified urinary disorder 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 rheumatoid factor (HCC) 03/07/2015 Dr. Hurley ([facility]) Unspecified hemorrhoids without mention of complication Hemorrhoids ALLERGIES Allergen Reactions Penicillins Hives warfarin (COUMADIN) 5 mg tablet^Take 7.5 mg , Sun,Sun, Sun, Sun; and 5 mg on Sunday and Sunday^Disp: 30 tablet^Rfl: [address] (PROTONIX) 40 mg tablet^Take 1 tablet by mouth once daily.^Disp: 90 tablet^Rfl: 3 albuterol HFA (PROAIR HFA) 90 mcg/actuation inhaler^Inhale 2 Puffs as instructed every 4 hours as needed.^Disp: 1 Each^Rfl: 2 vit A,C,W-Ejtr-Bxrkye (OCUVITE PRESERVISION) 2,148 mcg-113 mg-45 mg-17.4mg tab^Take 2 tablets by mouth daily with breakfast.^Disp: ^Rfl: potassium chloride ER (KLOR-CON M20) 20 mEq tablet^Take 1 tablet by mouth twice daily.^Disp: 180 tablet^Rfl: 3 gabapentin (NEURONTIN) 300 mg capsule^Take 1 capsule by mouth twice daily.^Disp: 180 capsule^Rfl: 3 tiotropium bromide (SPIRIVA RESPIMAT) 2.5 mcg/actuation inhaler^Inhale 2 Puffs as instructed once daily. Inhale two puffs once daily.^Disp: 3 Each^Rfl: 3 Irbesartan-hydroCHLOROthiazide 150-12.5 mg per tablet^Take 1 tablet by mouth once daily.^Disp: 90 tablet^Rfl: 3 SYMBICORT 160-4.5 mcg/actuation inhaler^USE 2 INHALATIONS TWICE A DAY INSTRUCTED^Disp: 3 Inhaler^Rfl: 3 leucovorin (LEUCOVORIN) 15 mg tablet^Take 15 mg by mouth once daily.^Disp: ^Rfl: HUMIRA PEN 40 mg/0.8 mL pnkt^Inject 40 mg subcutaneously. Every other week. ^Disp: ^Rfl: methotrexate 2.5 mg tablet^Take 2.5 mg by mouth every Sunday. PT takes 2 tablets in am and 1 tablets in pm^Disp: 12 tablet^Rfl: 0 Cholecalciferol, Vitamin D3, 1,000 unit ORAL Cap^Take 1 capsule by mouth once daily.^Disp: 1 capsule^Rfl: 0 omega-3 fatty acids/vitamin e(FISH OIL 1,000 MG CAP)^Take one(1) capsule daily.^Disp: ^Rfl: 0 fluticasone (FLONASE) 50 mcg/actuation nasal spray^Use 1 [place] in each nostril once daily.^Disp: 3 Each^Rfl: 3 naproxen (NAPROSYN) 500 mg tablet^Take 1 tablet by mouth twice daily as needed. Take with food^Disp: 120 tablet^Rfl: 3 THERAPEUTIC MULTIVITAMIN TAB^Take one(1) tablet daily.^Disp: ^Rfl: 0 Social History Tobacco Use Smoking status: Former Packs/day: 1.00 Years: 10.00 Pack years: 10.00 Types: Cigarettes Quit date: 02/19/1989 Years since quittin.4 Smokeless tobacco: Never Tobacco comments: Late heavy smoker. Vaping Use Vaping Use: Never used Substance Use Topics Alcohol use: Yes Comment: occasional Drug use: No FAMILY HISTORY Problem Relation Age of Onset Cancer Mother brain PAST SURGICAL HISTORY Procedure Laterality Date COLONOSCOPY FLX DX W/COLLJ SPEC WHEN PFRMD 10/2003 Colonoscopy COLONOSCOPY FLX DX W/COLLJ SPEC WHEN PFRMD 05/18/2014 Colonoscopy COLONOSCOPY FLX DX W/COLLJ SPEC WHEN PFRMD 02/25/2018 Colonoscopy COLONOSCOPY FLX DX W/COLLJ SPEC WHEN PFRMD 03/24/2019 Colonoscopy ESOPHAGOGASTRODUODENOSCOPY TRANSORAL DIAGNOSTIC 02/25/2018 EGD FILTER PLACEMENT (VENA CAVA) 12/28/2006 FOOT SURGERY HX Right 2022 Bunion surgery INTRO. OF CATH SUP/INF VENA CAVA 12/28/2006 LUMBAR SPINE FUSN,POST INTERBODY 2012 Dr. Armando at [facility]. Diskectomy and laminectomy PAST SURGICAL HISTORY OF 03/07/1999 removal facial lesion PAST SURGICAL HISTORY OF 08/17/2014 excision soft tissue mass left index finger TONSILLECTOMY PRIMARY/SECONDARY <AGE 12 TRANSCATH RETRIEVAL,PERCUT 12/28/2006 PMH, Social history, family history and surgical history reviewed and updated in EMR REVIEW OF SYSTEMS: CONSTITUTIONAL: No fevers, chills, nightsweats, unintended weight loss HEENT: Some nasal congestion/sinus symptoms, allergy problems with postnasal drip CARDIOVASCULAR: No chest pain, dyspnea, palpitations, orthopnea, PND, edema. PULM: See HPI GI: No dysphagia/odynophagia, problematic reflux MUSC-SKEL: No new joint pain. No active synovitis PSY: No concerns regarding depression, anxiety INTEGUMENTARY: No new skin changes or rashes PHYSICAL EXAMINATION: BP 122/72 Pulse 50 Resp 17 Wt 128 lb (58.1kg) SpO2 100% General Appearance: Age-appropriate female, NAD Skin: Skin color, texture, turgor normal, no suspicious rashes or lesions. Few upper extremity ecchymoses Head: Normocephalic, no masses, lesions, tenderness or abnormalities. Eyes: Sclera, conjunctiva normal Neck: No JVD, no masses, no adenopathy Chest wall: Normal configuration Lungs: Not labored, normal to percussion, no wheezes or crackles Heart: Regular rate and rhythm, harsh systolic musical murmur right upper sternal border Extremities: No edema or clubbing Musculoskeletal: Joint deformities Assessment/Plan: 1. Lung nodules -New nodularity likely represents inflammatory nodules. Will need follow-up CT. May improve with bronchopulmonary hygiene 2. Bronchiectasis -Continue current inhaled therapy -Strongly encourage patient to restart bronchopulmonary hygiene/mucus clearance techniques 3. Rheumatoid arthritis -Remains on disease modifying drugs including Humira and methotrexate without toxicity -RA likely etiology for her underlying bronchiectasis Florence Terry MD [facility] [place] documented in this encounter [facility] 07-20-2022 History of Presen t illness Narrative Radiology Service Progress Note PATIENT NAME: Haydee Bustamante DATE OF SERVICE: July 20, 2022 TIME: 9:35 AM PATIENT IDENTITY VERIFICATION COMPLETED USING TWO (2) IDENTIFIERS: Name and Date of confirmed by patient verbally. FALL SCREENING: Has the patient had 2 falls in the last year or 1 fall with injury or currently using an Ambulatory Assistive Device (Walker, Cane, Wheelchair, Crutches, etc.)? No PATIENT GENDER DATA: Female. status: : No status: NO. PATIENT RELEVANT IMPLANT DATA REVIEWED: Yes RADIOLOGY DEPARTMENT: CT; Exam(s) Completed: Chest PERIPHERAL IV DATA: Not applicable SIGNED BY: RT Maryann(R) July 20, 2022 9:35 AM documented in this encounter [facility] 07-13-2022 Note HNO ID: [id number] Author: Flex Means RN Service: ? Author Type: ? Type: Progress Notes Filed: 07/13/2022 4:39 PM Note Text: pcp agrees with information PATIENT NOTIFIED OF INFORMATION [facility] 07-13-2022 Note HNO ID: [id number] Author: Flex Means RN Service: ? Author Type: ? Type: Progress Notes Filed: 07/13/2022 4:39 PM Note Text: patient had inr completed at [facility] patients inr is 1.5 (patients inr range is 1.7-2.2) patient is currently taking 5mg Mon,Wed,Fri and 7.5mg all other days patients last dose change was on 06/22/22 due to a high level of 2.9 (dose at that time was 5mg Mon,Wed and 7.5mg all other days) patient has had no changes in medication and no missed doses and no change in diet recommend that patient go back to 5mg Mon,Wed and 7.5mg all other days and recheck inr in 2 weeks. Patient has been scheduled for a 2 week inr follow up inr 07/27/22 [facility] 07-11-2022 Note HNO ID: [id number] Author: Jimbo Carias APRN.TROLLEY CAR OPERATOR Service: ? Author Type: Nurse Specialist Type: Progress Notes Filed: 07/11/2022 11:13 AM Note Text: SUBJECTIVE: ALPHA-1 ANTITRYPSIN DEFICIENCY SCREENING Never done ADVANCE DIRECTIVE DISCUSSION due on 02/19/2022 JEFFREY Bustamante is a 77 year old female. Her past medical history significant for GERD, meralgia paresthetica, history of embolism and thrombosis, recurrent, voice disorder, arthropathy, enthesopathy of hip region, elevated liver enzymes, long-term current use of anticoagulation, herniated lumbar disc, atrophic vaginitis ganglion cyst essential hypertension rheumatoid arthritis hip and back pain, iron deficiency anemia, aortic stenosis with bicuspid valve, lung nodule bronchiectasis and COPD. 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 States that bridal sales consultant discussed possible amputation of toe but would prefer not to go that route. May see an alternate bridal sales consultant at [facility]. Weight: stable Exercise: walking miles most days, feeling well with this . Notes up to 10mi/day when participating in [employer] Seen by PCP March 13, 2022. Noted macular degeneration, a Raynaud's 2 daily advised 1 year follow-up with eye doctor. Since last seen she has gone to [facility], seen by Dr. Roque Zacarias 06/26/2022 for RA, osteoporosis, degenerative disc disease, arthritis of foot, osteoarthritis of bilateral hands. 3 mo follow up and Dexa advised. Has new shoes from Rani Cowart at [facility] [employer]. Notes foot surgery and healed foot wound. RA: controlled currently, following with car rental clerk. Last seen by Dr. Ambriz 07/2021 for BAV, aortic stenosis. Follow up TTE advised. 1 year follow up advised. Completed August 2021. Moderate aortic stenosis noted. Normal LV size and function, noted progression of aortic stenosis. : has follow up with cardiology at 12 mos OAC: no bleeding difficulties. Occasional bruising. [facility] coumadin clinic. Home blood pressure and heart rate: no recent checks HTN: Ms. Bustamante indicates that she is feeling well and denies any symptoms referable to elevated blood pressure. Specifically denies headache, chest pain, palpitations, dyspnea, peripheral edema, orthopnea, fatigue and PND. Last 14 Encounter BP Readings: Date: BP: 07/11/2022 110/64 03/13/2022 112/68 12/31/2021 142/86 11/29/2021 122/76 11/10/2021 152/80 09/20/2021 128/64 08/12/2021 130/74 07/11/2021 122/74 2021 144/67 03/14/2021 118/62 11/29/2020 118/60 11/09/2020 112/68 10/27/2020 128/69 08/20/2020 130/70 Spiriva and intermittent albuterol has helped with cough. Stable. Without report of back pain, currently taking gabapentin. No noted AEs. Review of Systems Constitutional: Negative. Respiratory: Negative. Cardiovascular: Negative. Objective BP 110/64 Pulse 72 Resp 16 Wt 59 kg (130 lb) BMI 22.31 kg/m? Physical Exam Vitals and nursing note reviewed. Constitutional: Appearance: Normal appearance. HENT: Head: Normocephalic and atraumatic. Eyes: Conjunctiva/sclera: Conjunctivae normal. Neck: Thyroid: No thyromegaly. Cardiovascular: Rate and Rhythm: Normal rate. Pulses: Carotid pulses are 2+ on the right side and 2+ on the left side. Radial pulses are 2+ on the right side and 2+ on the left side. Heart sounds: Murmur heard. Systolic murmur is present with a grade of 3/6. Comments: RUAB c/w Pulmonary: Effort: Pulmonary effort is normal. Skin: General: Skin is warm and dry. Neurological: General: No focal deficit present. Mental Status: She is alert. ALLERGIES Allergen Reactions Penicillins Hives Medications vit A,C,V-Gboj-Ihhqxj (OCUVITE PRESERVISION) 2,148 mcg-113 mg-45 mg-17.4mg tabTake 2 tablets by mouth daily with breakfast.Disp: Rfl: potassium chloride ER (KLOR-CON M20) 20 mEq tabletTake 1 tablet by mouth twice daily.Disp: 180 tabletRfl: 3 naproxen (NAPROSYN) 500 mg tabletTake 1 tablet by mouth twice daily as needed. Take with foodDisp: 120 tabletRfl: 3 gabapentin (NEURONTIN) 300 mg capsuleTake 1 capsule by mouth twice daily.Disp: 180 capsuleRfl: 3 fluticasone (FLONASE) 50 mcg/actuation nasal sprayUse 1 [place] in each nostril once daily.Disp: 3 EachRfl: 3 tiotropium bromide (SPIRIVA RESPIMAT) 2.5 mcg/actuation inhalerInhale 2 Puffs as instructed once daily. Inhale two puffs once daily.Disp: 3 EachRfl: 3 Irbesartan-hydroCHLOROthiazide 150-12.5 mg per tabletTake 1 tablet by mouth once daily.Disp: 90 tabletRfl: 3 SYMBICORT 160-4.5 mcg/actuation inhalerUSE 2 INHALATIONS TWICE A DAY INSTRUCT (more content not included)... [facility] 06-29-2022 Note HNO ID: [id number] Author: Jimbo Carias APRN.TROLLEY CAR OPERATOR Service: ? Author Type: Nurse Specialist Type: Progress Notes Filed: 06/29/2022 2:16 PM Note Text: Continue with Coumadin dosing unchanged and check INR in 2 weeks [facility] 06-29-2022 History of Presen t illness Narrative Continue with Coumadin dosing unchanged and check INR in 2 weeks patient had inr completed at [facility] patients inr is 2.1 (patients inr range is 1.7-2.2) patient is currently taking 5mg Mon,Wed,Fri and 7.5mg all other days patients last dose change was on 06/22/22 due to a high level of 2.9 (dose at that time was 5mg Mon,Wed and 7.5mg all other days) patient has had no changes in medication except for coumadin and no missed doses and no change in diet Advised patient to continue on the same dose(s) and that they would only be contacted regarding dosage and follow up instructions after review with provider, if a change is needed. Written instructions given and patient verbalized understanding. Presently scheduled in 2 weeks (07/13/22) for follow up INR since this is the first normal reading since dose change documented in this encounter [facility] 06-29-2022 Note HNO ID: [id number] Author: Flex Means RN Service: ? Author Type: ? Type: Progress Notes Filed: 06/29/2022 2:16 PM Note Text: patient had inr completed at [facility] patients inr is 2.1 (patients inr range is 1.7-2.2) patient is currently taking 5mg Mon,Wed,Fri and 7.5mg all other days patients last dose change was on 06/22/22 due to a high level of 2.9 (dose at that time was 5mg Mon,Wed and 7.5mg all other days) patient has had no changes in medication except for coumadin and no missed doses and no change in diet Advised patient to continue on the same dose(s) and that they would only be contacted regarding dosage and follow up instructions after review with provider, if a change is needed. Written instructions given and patient verbalized understanding. Presently scheduled in 2 weeks (07/13/22) for follow up INR since this is the first normal reading since dose change [facility] 06-22-2022 Note HNO ID: [id number] Author: Maritza Preston LPN Service: ? Author Type: ? Type: Progress Notes Filed: 06/22/2022 3:37 PM Note Text: Patient notified of change in dosage, verbalized understanding. Anticoag Tracker updated. Maritza Preston LPN [facility] 06-22-2022 Note HNO ID: [id number] Author: Jimbo Carias APRN.TROLLEY CAR OPERATOR Service: ? Author Type: Nurse Specialist Type: Progress Notes Filed: 06/22/2022 3:37 PM Note Text: Coumadin 5 mg today and tomorrow then 5 mg Sunday and 7.5 mg all other days. Recheck INR in 1 week [facility] 06-22-2022 Note HNO ID: [id number] Author: Flex Means RN Service: ? Author Type: ? Type: Progress Notes Filed: 06/22/2022 3:37 PM Note Text: patient had inr completed at [facility] patients inr is 2.9 (patients inr range is 1.7-2.2) patient is currently taking 5mg Mon,Wed and 7.5mg all other days patients last dose change was on 12/22/21 due to a low level of 1.4 (dose at that time was 5mg Mon,Wed,Fri and 7.5mg all other days) patient has had no changes in medication and no missed doses and no change in diet Advised patient that they would be contacted regarding medication dose and when to follow up after information is reviewed by provider. After provider review please contact the patient with information and schedule follow up appointment with coumadin clinic. ok to leave a detailed message if no answer FYI- patient has been scheduled for a 1 week follow up inr on 06/29/22 [facility] 06-09-2022 Note HNO ID: [id number] Author: Flex Means RN Service: ? Author Type: ? Type: Progress Notes Filed: 06/09/2022 4:06 PM Note Text: pcp agrees [facility] 06-09-2022 Note HNO ID: [id number] Author: Flex Means RN Service: ? Author Type: ? Type: Progress Notes Filed: 06/09/2022 4:06 PM Note Text: patient had inr completed at [facility] patients inr is 1.6 (patients inr range is 1.7-2.2) patient is currently taking 5mg Mon,Wed and 7.5mg all other days patients last dose change was on 12/22/21 due to a low level of 1.4 (dose at that time was 5mg Mon,Wed,Fri and 7.5mg all other days) patient has had no changes in medication and no missed doses and no change in diet FYI- patient was off coumadin due to surgery and has been back on for about 2 weeks Advised patient to continue on the same dose(s) and that they would only be contacted regarding dosage and follow up instructions after review with provider, if a change is needed. Written instructions given and patient verbalized understanding. Presently scheduled in 2 weeks (06/22/22) for follow up INR since coumadin is just slight under [facility] 05-23-2022 Miscellaneous Notes Noted Message left on patients voicemail to call office. Provider wanting to make sure patient feeling well and ok to proceed with surgery on 05/24/2022. Forms filled out and faxed to number provided, to proceed with the surgery. Diana Evans LPN If patient stable since February, may proceed with planned surgery. Call patient to verify then fax completed form Lani with Dr Cowart's office called in and report they faxed over a Clearance form for provider to sign. She also reports they sent over the Cardiac clearance, which is what they were waiting on last time. She states if they don't get this before 5 pm they will have to cancel the surgery again. Pt was scheduled for foot surgery in Feb but surgery was rescheduled. Lani from Dr Rani Cowart's office [facility] states they received a signed clearance from pcp stating pt was approved for surgery but that was attached to the previous surgery & now they need a new signed clearance. Lani states she is not sure if this was a form that was provided by Dr Cowart's office or if provider just sent something in but she is requesting something from the office. Pt is scheduled for surgery tomorrow morning. PH: [phone] X [phone] FAX: [phone]. Maricarmen Jacobs LPN documented in this encounter [facility] 05-04-2022 Note HNO ID: [id number] Author: Jimbo Carias APRN.TROLLEY CAR OPERATOR Service: ? Author Type: Nurse Specialist Type: Progress Notes Filed: 05/04/2022 3:52 PM Note Text: Continue Coumadin dose unchanged and check INR in 1 month [facility] 05-04-2022 History of Presen t illness Narrative Continue Coumadin dose unchanged and check INR in 1 month patient had inr completed at [facility] patients inr is 2.0 (patients inr range is 1.7-2.2) patient is currently taking 5mg Mon,Wed and 7.5mg all other days patients last dose change was on 12/22/21 due to a low level of 1.4 (dose at that time was 5mg Mon,Wed,Fri and 7.5mg all other days) patient has had no changes in medication and no missed doses and no change in diet Advised patient to continue on the same dose(s) and that they would only be contacted regarding dosage and follow up instructions after review with provider, if a change is needed. Written instructions given and patient verbalized understanding. Presently scheduled in 1 month (06/08/22) for follow up INR. documented in this encounter [facility] 05-04-2022 Note HNO ID: [id number] Author: Flex Means RN Service: ? Author Type: ? Type: Progress Notes Filed: 05/04/2022 3:52 PM Note Text: patient had inr completed at [facility] patients inr is 2.0 (patients inr range is 1.7-2.2) patient is currently taking 5mg Mon,Wed and 7.5mg all other days patients last dose change was on 12/22/21 due to a low level of 1.4 (dose at that time was 5mg Mon,Wed,Fri and 7.5mg all other days) patient has had no changes in medication and no missed doses and no change in diet Advised patient to continue on the same dose(s) and that they would only be contacted regarding dosage and follow up instructions after review with provider, if a change is needed. Written instructions given and patient verbalized understanding. Presently scheduled in 1 month (06/08/22) for follow up INR. [facility] 04-06-2022 Note HNO ID: [id number] Author: Jimbo Carias APRN.TROLLEY CAR OPERATOR Service: ? Author Type: Nurse Specialist Type: Progress Notes Filed: 04/06/2022 3:05 PM Note Text: Continue with Coumadin dose unchanged and check INR in 4 weeks [facility] 04-06-2022 History of Presen t illness Narrative Continue with Coumadin dose unchanged and check INR in 4 weeks patient had inr completed at [facility] patients inr is 2.0 (patients inr range is 1.7-2.2) patient is currently taking 5mg Mon,Wed and 7.5mg all other days patients last dose change was on 12/22/21 due to a low level of 1.4 (dose at that time was 5mg Mon,Wed,Fri and 7.5mg all other days) patient has had no changes in medication and no missed doses and no change in diet Advised patient to continue on the same dose(s) and that they would only be contacted regarding dosage and follow up instructions after review with provider, if a change is needed. Written instructions given and patient verbalized understanding. Presently scheduled in 4 weeks (05/04/22) for follow up INR. documented in this encounter [facility] 04-06-2022 Note HNO ID: [id number] Author: Flex Means RN Service: ? Author Type: ? Type: Progress Notes Filed: 04/06/2022 3:05 PM Note Text: patient had inr completed at [facility] patients inr is 2.0 (patients inr range is 1.7-2.2) patient is currently taking 5mg Mon,Wed and 7.5mg all other days patients last dose change was on 12/22/21 due to a low level of 1.4 (dose at that time was 5mg Mon,Wed,Fri and 7.5mg all other days) patient has had no changes in medication and no missed doses and no change in diet Advised patient to continue on the same dose(s) and that they would only be contacted regarding dosage and follow up instructions after review with provider, if a change is needed. Written instructions given and patient verbalized understanding. Presently scheduled in 4 weeks (05/04/22) for follow up INR. [facility] 03-30-2022 Note HNO ID: [id number] Author: Flex Means RN Service: ? Author Type: ? Type: Progress Notes Filed: 03/30/2022 3:57 PM Note Text: PATIENT NOTIFIED OF INFORMATION via detailed message [facility] 03-30-2022 History of Presen t illness Narrative PATIENT NOTIFIED OF INFORMATION via detailed message Coumadin 5 mg today then resume previous dosing -5 mg Sunday and 7.5 mg all other days and check INR in 1 week patient had inr completed at [facility] patients inr is 2.3 (patients inr range is 1.7-2.2) patient is currently taking 5mg Mon,Wed and 7.5mg all other days patients last dose change was on 12/22/21 due to a low level of 1.4 (dose at that time was 5mg Mon,Wed,Fri and 7.5mg all other days) patient has had no changes in medication and no missed doses and no change in diet Advised patient that they would be contacted regarding medication dose and when to follow up after information is reviewed by provider. After provider review please contact the patient with information and schedule follow up appointment with coumadin clinic. ok to leave a detailed message if no answer FYI- patient has been scheduled for a 1 week follow up inr on 04/06/22 documented in this encounter [facility] 03-30-2022 Note HNO ID: [id number] Author: Jimbo Carias APRN.TROLLEY CAR OPERATOR Service: ? Author Type: Nurse Specialist Type: Progress Notes Filed: 03/30/2022 3:57 PM Note Text: Coumadin 5 mg today then resume previous dosing -5 mg Sunday and 7.5 mg all other days and check INR in 1 week [facility] 03-30-2022 Note HNO ID: [id number] Author: Flex Means RN Service: ? Author Type: ? Type: Progress Notes Filed: 03/30/2022 3:57 PM Note Text: patient had inr completed at [facility] patients inr is 2.3 (patients inr range is 1.7-2.2) patient is currently taking 5mg Mon,Wed and 7.5mg all other days patients last dose change was on 12/22/21 due to a low level of 1.4 (dose at that time was 5mg Mon,Wed,Fri and 7.5mg all other days) patient has had no changes in medication and no missed doses and no change in diet Advised patient that they would be contacted regarding medication dose and when to follow up after information is reviewed by provider. After provider review please contact the patient with information and schedule follow up appointment with coumadin clinic. ok to leave a detailed message if no answer FYI- patient has been scheduled for a 1 week follow up inr on 04/06/22 [facility] 03-13-2022 History of Presen t illness Narrative This note was created using Youneeq. Subjective Haydee Bustamante is a 76 year old female. Patient presents with: 4 month follow up SUBJECTIVE: Haydee Bustamante is a 76 year old year old lady here today for 4 month follow up appointment for review of medical conditions. Following with eye doctor. Has early macular degeneration. Given glasses for it. Having foot surgery at [facility] May 19. Told will be extensive--straighten all the toes, including the pinky toe. Noted had ulcer that developed from shoe she had worn for a show. Reviewed echocardiogram done September 05, 2021. They want copy. Has knee scooter to use if needed. Also has wheelchair to use as needed. Will have friend to help her post-op. Bought shoes with wide toe boxes. Has been able to stop coumadin prior to procedures/surgeries and did not need Lovenox. Noted wart on leg returned (had treated here before)--plan to address later. Stable on meds for asthma. Rarely needs albuterol except for what sounds like cough variant asthma. Symbicort routinely. for COPD. Gets labs routinely for Rheumatology. New one now since Dr. Hurley retired. PAST MEDICAL HISTORY Diagnosis Date Anemia Bone marrow involvement with histoplasmosis Bronchiectasis (HCC) COPD (chronic obstructive pulmonary disease) (HCC) Disseminated histoplasmosis Colitis, immunosuppression, 01/2018. Diverticulosis of colon (without mention of hemorrhage) Diverticulosis DVT, recurrent, lower extremity, acute ([facility]) 12/10/2014 Esophageal reflux Hiatal hernia 02/25/2018 Hypertension Personal history of unspecified urinary disorder 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 rheumatoid factor ([facility]) 03/07/2015 Dr. Hurley ([facility]) Unspecified hemorrhoids without mention of complication Hemorrhoids Current Outpatient Medications Medication Sig naproxen (NAPROSYN) 500 mg tablet Take 1 tablet by mouth twice daily as needed. Take with food gabapentin (NEURONTIN) 300 mg capsule Take 1 capsule by mouth twice daily. fluticasone (FLONASE) 50 mcg/actuation nasal spray Use 1 [place] in each nostril once daily. tiotropium bromide (SPIRIVA RESPIMAT) 2.5 mcg/actuation inhaler Inhale 2 Puffs as instructed once daily. Inhale two puffs once daily. Irbesartan-hydroCHLOROthiazide 150-12.5 mg per tablet Take 1 tablet by mouth once daily. SYMBICORT 160-4.5 mcg/actuation inhaler USE 2 INHALATIONS TWICE A DAY INSTRUCTED pantoprazole DR (PROTONIX) 40 mg tablet Take 1 tablet by mouth once daily. albuterol HFA (PROAIR HFA) 90 mcg/actuation inhaler Inhale 2 Puffs as instructed every 4 hours as needed. potassium chloride ER (KLOR-CON M20) 20 mEq tablet Take 1 tablet by mouth twice daily. warfarin (COUMADIN) 5 mg tablet Take 7.5 mg , Sun, Sun, Sun, Sun; and 5 mg on Sunday and Sunday. leucovorin (LEUCOVORIN) 15 mg tablet Take 15 mg by mouth once daily. HUMIRA PEN 40 mg/0.8 mL pnkt Inject 40 mg subcutaneously. Every other week. methotrexate 2.5 mg tablet Take 2.5 mg by mouth every Sunday. PT takes 2 tablets in am and 2 tablets in pm Cholecalciferol, Vitamin D3, 1,000 unit ORAL Cap Take 1 capsule by mouth once daily. omega-3 fatty acids/vitamin e(FISH OIL 1,000 MG CAP) Take one(1) capsule daily. THERAPEUTIC MULTIVITAMIN TAB Take one(1) tablet daily. Current Facility-Administered Medications Medication Dose Route Frequency perflutren lipid microspheres 1.3 mL in NaCl (PF) 0.9% 10 mL injection (DEFINITY) INTRAVENOUS DIRECTED PRN sodium chloride 0.9 % (flush) 10 mL (BD POSIFLUSH) 10 mL INTRAVENOUS DIRECTED PRN sodium chloride 0.9 % (flush) 10 mL (BD POSIFLUSH) 10 mL INTRAVENOUS DIRECTED PRN Review of Systems Objective BP 112/68 Pulse 75 Temp (!) 35.9 C (96.7 F) Resp 18 Wt 59.6 kg (131 lb 4.8 oz) SpO2 100% BMI 22.54 kg/m Physical Exam Constitutional: Appearance: Normal appearance. HENT: Head: Normocephalic. Eyes: Conjunctiva/sclera: Conjunctivae normal. Cardiovascular: Rate and Rhythm: Normal rate and regular rhythm. Heart sounds: Murmur heard. Systolic (harsh) murmur is present with a grade of 4/6. Pulmonary: Effort: Pulmonary effort is normal. Breath sounds: Normal breath sounds. Skin: General: Skin is warm and dry. Neurological: General: No focal deficit present. Mental Status: She is alert and oriented to person, place, and time. Psychiatric: Mood and Affect: Mood normal. Behavior: Behavior normal. Thought Content: Thought content normal. Judgment: Judgment normal. Assessment and Plan Encounter Diagnosis ICD-10-CM 1. Essential hypertension I10 2. Chronic anticoagulation Z79.01 warfarin (COUMADIN) 5 mg tablet 3. Aortic stenosis with bicuspid valve Q23.0 Q23.1 4. 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 rheumatoid factor (HCC) M05.79 5. COPD without exacerbation ([facility]) J44.9 6. Bronchiectasis without complication ([facility]) J47.9 7. Acquired hammertoe of left foot M20.42 8. 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 Continue yearly follow up with her eye doctor. 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 Patient involved in shared decision making for management of medical issues. History and medications reviewed. Epic updated as needed Refills and/or prescriptions taken care of and meds adjusted as indicated after reviewed history, exam and labs. Health Maintenance reviewed. Updated record and/or ordered tests as recorded. Encouraged on efforts at healthy diet and regular exercise and adequate sleep. Noted plans for foot surgery--will be extensive for hammertoes and DJD great toe and pinky toe. Stable from cardiac and pulmonary standpoint with current meds, but noted aortic stenosis and COPD and bronchiectasis history. Continue present meds.. Continue present management. 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 Noted that has not needed bridging Lovenox when has been off coumadin. Continue present management with anticoagulation. .BP controlled. Continue present management. Claudine Durán MD documented in this encounter [facility] 02-02-2022 History of Presen t illness Narrative Continue with Coumadin dose unchanged check INR in 4 weeks patient had inr completed at [facility] patients inr is 2.0 (patients inr range is 1.7-2.2) patient is currently taking 5mg Mon,Wed and 7.5mg all other days patients last dose change was on 12/22/21 due to a low level of 1.4 (dose at that time was 5mg Mon,Wed,Fri and 7.5mg all other days) patient has had no changes in medication and no missed doses and no change in diet Advised patient to continue on the same dose(s) and that they would only be contacted regarding dosage and follow up instructions after review with provider, if a change is needed. Written instructions given and patient verbalized understanding. Presently scheduled in 4 weeks (03/02/22) for follow up INR. documented in this encounter [facility] 01-17-2022 Miscellaneous Notes Last office visit: 11/10/21 Next appointment scheduled: 03/13/22 Patient phones requesting refills as follows: Requested Prescriptions Pending Prescriptions Disp Refills naproxen (NAPROSYN) 500 mg tablet 120 tablet 3 Sig: Take 1 tablet by mouth twice daily as needed. Take with food Please review and advise. Geni Cintron LPN documented in this encounter [facility] 01-11-2022 Miscellaneous Notes Spoke with pt and information listed below given. Pt verbalizes understanding. She will get the labs when they are due. 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 Requested Prescriptions Signed Prescriptions Disp Refills gabapentin (NEURONTIN) 300 mg capsule 180 capsule 3 Sig: Take 1 capsule by mouth twice daily. Authorizing Provider: CLAUDINE DURÁN MD Patient has been identified by name and date of : Yes Patient phones for refill(s): Requested Prescriptions Pending Prescriptions Disp Refills gabapentin (NEURONTIN) 300 mg capsule 180 capsule 3 Sig: Take 1 capsule by mouth twice daily. Date of last office visit in primary care: 11/10/21 next ap[t 03/13/22 Last 2 Encounter Wt Readings: Date: Wt: 12/31/2021 0 kg () 11/29/2021 58.5 kg (129 lb) Previous labs/tests for medication: Not applicable Thank you. Lynne Mann LPN documented in this encounter [facility] 01-05-2022 History of Presen t illness Narrative per dr haynes he agrees with information patient had inr completed at [facility] patients inr is 2.2 (patients inr range is 1.7-2.2) patient is currently taking 5mg Mon,Wed and 7.5mg all other days patients last dose change was on 12/22/21 due to a low level of 1.4 (dose at that time was 5mg Mon,Wed,Fri and 7.5mg all other days) patient has had a change in medication as patient is currently n step down prednisone dosing for another 4 days and no missed doses and no change in diet Advised patient to continue on the same dose(s) and that they would only be contacted regarding dosage and follow up instructions after review with provider, if a change is needed. Written instructions given and patient verbalized understanding. Presently scheduled in 4 weeks (02/02/22) for follow up INR. documented in this encounter [facility] 12-22-2021 History of Presen t illness Narrative PATIENT NOTIFIED OF INFORMATION Recommend Coumadin 7.5 mg today. Then resume usual dosing 5 mg Sunday and 7.5 mg all other days. Check INR 2 weeks patient had inr completed at [facility] patients inr is 1.4 (patients inr range is 1.7-2.2) patient is currently taking 5mg Mon,Wed,Fri and 7.5mg all other days patients last dose change was on 02/24/21 due to a high level of 3.2 (dose at that time was 7.5mg daily) patient has had no changes in medication and no missed doses and no change in diet Advised patient that they would be contacted regarding medication dose and when to follow up after information is reviewed by provider. After provider review please contact the patient with information and schedule follow up appointment with coumadin clinic. ok to leave a detailed message if no answer FYI- patient has been scheduled for a 2 week follow up inr on 01/05/22 documented in this encounter [facility] 11-29-2021 History of Presen t illness Narrative Images from the original note were not included. . [facility] [place] Note Patient name: Haydee Bustamante PCP: Claudine Durán MD CC: Follow-up lung disease HPI: Haydee Bustamante 76 year old female former [id number] smoker having quit in 1989 with PMH significant for rheumatoid arthritis (MTX and Humira), HTN, history of disseminated histoplasmosis, bronchiectasis and emphysema, DVT, former patient of Dr. Andujar. Inhaled therapy consists of Spiriva and Symbicort. No side effects from her inhaled therapy. Overall, states that she has been doing well. Noticed more shortness of breath it during the summer especially on humid days. [place], and noted difficulty with shortness of breath when performing. Due to this she was using her albuterol preperformance. Otherwise she has not noted any significant cough, sputum production, wheezing, chest pain or significant dyspnea. No fevers, chills, weight loss, night sweats. She states that she had recurrent upper respiratory infections and persistent cold-like symptoms which resolved when she started on inhaled therapy. DATA: PFT 11/2020: Pulmonary function test show mixed obstruction and restriction. Labs: Alpha-1 antitrypsin level ordered but not performed Imaging / Diagnostic Studies: Chest CT 02/2019: IMPRESSION: Mild emphysema with mild, diffuse bronchiectasis. Again seen are regions of impaction and tree-in-bud type opacity within both lungs, most severe within the lingula and right middle lobe. Although findings suggest multifocal infection, possibly Mycobacterium avium intracellulare. Stable appearing nodular density seen within left lower lobe, measuring approximately 1.2 cm. Again seen are prominent, not pathologically enlarged mediastinal and bilateral hilar lymph nodes, likely reactive. I personally reviewed images and agree with the above assessment PAST MEDICAL HISTORY Diagnosis Date Anemia Bone marrow involvement with histoplasmosis Bronchiectasis (HCC) COPD (chronic obstructive pulmonary disease) (HCC) Disseminated histoplasmosis Colitis, immunosuppression, 01/2018. Diverticulosis of colon (without mention of hemorrhage) Diverticulosis DVT, recurrent, lower extremity, acute (HCC) 12/10/2014 Esophageal reflux Hiatal hernia 02/25/2018 Hypertension Personal history of unspecified urinary disorder 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 rheumatoid factor ([facility]) 03/07/2015 Dr. Hurley ([facility]) Unspecified hemorrhoids without mention of complication Hemorrhoids ALLERGIES Allergen Reactions Penicillins Hives fluticasone (FLONASE) 50 mcg/actuation nasal spray^Use 1 [place] in each nostril once daily.^Disp: 3 Each^Rfl: 3 tiotropium bromide (SPIRIVA RESPIMAT) 2.5 mcg/actuation inhaler^Inhale 2 Puffs as instructed once daily. Inhale two puffs once daily.^Disp: 3 Each^Rfl: 3 Irbesartan-hydroCHLOROthiazide 150-12.5 mg per tablet^Take 1 tablet by mouth once daily.^Disp: 90 tablet^Rfl: 3 SYMBICORT 160-4.5 mcg/actuation inhaler^USE 2 INHALATIONS TWICE A DAY INSTRUCTED^Disp: 3 Inhaler^Rfl: [address] (PROTONIX) 40 mg tablet^Take 1 tablet by mouth once daily.^Disp: 90 tablet^Rfl: 3 albuterol HFA (PROAIR HFA) 90 mcg/actuation inhaler^Inhale 2 Puffs as instructed every 4 hours as needed.^Disp: 1 Inhaler^Rfl: 2 potassium chloride ER (KLOR-CON M20) 20 mEq tablet^Take 1 tablet by mouth twice daily.^Disp: 180 tablet^Rfl: 3 naproxen (NAPROSYN) 500 mg tablet^Take 1 tablet by mouth twice daily as needed. Take with food^Disp: 120 tablet^Rfl: 3 warfarin (COUMADIN) 5 mg tablet^Take 7.5 mg , Sun, Sun, Sat, Sun; and 5 mg on Sunday and Sunday.^Disp: 180 tablet^Rfl: 3 gabapentin (NEURONTIN) 300 mg capsule^Take 1 capsule by mouth twice daily.^Disp: 180 capsule^Rfl: 3 leucovorin (LEUCOVORIN) 15 mg tablet^Take 15 mg by mouth once daily.^Disp: ^Rfl: HUMIRA PEN 40 mg/0.8 mL pnkt^Inject 40 mg subcutaneously. Every other week. ^Disp: ^Rfl: methotrexate 2.5 mg tablet^Take 2.5 mg by mouth every Sunday. PT takes 8 tabs every Sunday ^Disp: 12 tablet^Rfl: 0 Cholecalciferol, Vitamin D3, 1,000 unit ORAL Cap^Take 1 capsule by mouth once daily.^Disp: 1 capsule^Rfl: 0 omega-3 fatty acids/vitamin e(FISH OIL 1,000 MG CAP)^Take one(1) capsule daily.^Disp: ^Rfl: 0 THERAPEUTIC MULTIVITAMIN TAB^Take one(1) tablet daily.^Disp: ^Rfl: 0 Social History Tobacco Use Smoking status: Former Packs/day: 1.00 Years: 10.00 Pack years: 10.00 Types: Cigarettes Quit date: 02/19/1989 Years since quittin.7 Smokeless tobacco: Never Tobacco comments: Late heavy smoker. Vaping Use Vaping Use: Never used Substance Use Topics Alcohol use: Yes Comment: occasional Drug use: No FAMILY HISTORY Problem Relation Age of Onset Cancer Mother brain PAST SURGICAL HISTORY Procedure Laterality Date COLONOSCOPY FLX DX W/COLLJ SPEC WHEN PFRMD 10/23 Colonoscopy COLONOSCOPY FLX DX W/COLLJ SPEC WHEN PFRMD 05/18/2014 Colonoscopy COLONOSCOPY FLX DX W/COLLJ SPEC WHEN PFRMD 02/25/2018 Colonoscopy COLONOSCOPY FLX DX W/COLLJ SPEC WHEN PFRMD 03/24/2019 Colonoscopy ESOPHAGOGASTRODUODENOSCOPY TRANSORAL DIAGNOSTIC 02/25/2018 EGD FILTER PLACEMENT (VENA CAVA) 12/28/06 INTRO. OF CATH SUP/INF VENA CAVA 12/28/06 LUMBAR SPINE FUSN,POST INTERBODY 2011 Dr. Armando at [facility]. Diskectomy and laminectomy PAST SURGICAL HISTORY OF 03/07/1999 removal facial lesion PAST SURGICAL HISTORY OF 08/17/14 excision soft tissue mass left index finger TONSILLECTOMY PRIMARY/SECONDARY <AGE 12 TRANSCATH RETRIEVAL,PERCUT 12/28/06 PMH, Social history, family history and surgical history reviewed and updated in EMR REVIEW OF SYSTEMS: CONSTITUTIONAL: No fevers, chills, nightsweats, unintended weight loss HEENT: Denies nasal congestion/sinus symptoms, allergy problems. CARDIOVASCULAR: No chest pain, dyspnea, palpitations, orthopnea, edema. PULM: See HPI GI: No dysphagia/odynophagia, problematic reflux. : No urinary complaints, including dysuria, gross hematuria or pyuria. NEURO: No new balance problems, peripheral weakness/paresthesias or numbness of concern. MUSC-SKEL: No new joint pain, swelling, or erythema. INTEGUMENTARY: No new skin changes or rashes PHYSICAL EXAMINATION: BP 122/76 Pulse 92 Resp 18 Wt 129 lb (58.5kg) SpO2 97% General Appearance: Thin age-appropriate female, NAD Skin: Skin color, texture, turgor normal, no suspicious rashes or lesions. Few upper extremity ecchymoses Head: Normocephalic, no masses, lesions, tenderness or abnormalities. Eyes: Sclera, conjunctiva normal Oropharynx: Normal dentition, no oral lesions or thrush Neck: No JVD, no masses, no adenopathy Lungs: Not labored, normal to percussion, no wheezes or crackles Heart: Regular rate and rhythm, systolic murmur throughout precordium Extremities: No edema, no clubbing. RA changes Lymph Nodes: No cervical lymphadenopathy and No supraclavicular lymphadenopathy. Assessment/Plan: 1. Lung nodules -No surveillance for 2 years. Needs updated chest CT 2. Bronchiectasis -Etiology likely due to her underlying rheumatoid arthritis -No significant chronic sputum production, aggressive bronchopulmonary hygiene not indicated at this time 3. COPD -Continue current inhaled therapy and as needed albuterol 4. RA -Active treatment per rheumatology Florence Terry MD Respiratory [place] documented in this encounter [facility] 11-24-2021 Miscellaneous Notes error documented in this encounter [facility] 11-10-2021 History of Presen t illness Narrative SUBJECTIVE: BP CONTROLLED (<130/80) Never done ALPHA-1 ANTITRYPSIN DEFICIENCY SCREENING Never done ADVANCE DIRECTIVE DISCUSSION Never done COVID-19 VACCINE(5 - Booster for Pfizer series) due on 09/05/2021 INFLUENZA(1) due on 10/20/2021 HPI Haydee Bustamante is a 76 year old female. Her past medical history significant for GERD, meralgia paresthetica, history of embolism and thrombosis, recurrent, voice disorder, arthropathy, enthesopathy of hip region, elevated liver enzymes, long-term current use of anticoagulation, herniated lumbar disc, atrophic vaginitis ganglion cyst essential hypertension rheumatoid arthritis hip and back pain, iron deficiency anemia, aortic stenosis with bicuspid valve, lung nodule bronchiectasis and COPD. HPI excerpted from previous visit: Television Operator: William GOTTI, aortic stenosis - has 01/2021 appt Beer Cooler: Julio Medrano / Johanna Benites 6 month follow up with PFT 05/2020 Infectious disease:Ayanna Lai -histoplasmosis on Humira -follow-up in 6 months 09/2019 [employer]:: Today reports had toe infection has completely healed. States that bridal sales consultant discussed possible amputation of toe but would prefer not to go that route. May see an alternate bridal sales consultant at [facility]. States took blood pressure medication today. Continues with naproxen unchanged. Notes that she has beeneating out a lot lately. Home blood pressure and heart rate: no recent checks Weight: stable Exercise: walking miles most days, feeling well with this . 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 No noted AEs. HTN: Ms. Bustamante indicates that she is feeling well and denies any symptoms referable to elevated blood pressure. Specifically denies headache, chest pain, palpitations, dyspnea, peripheral edema, orthopnea, fatigue and PND. Last 14 Encounter BP Readings: Date: BP: 11/10/2021 152/80 09/20/2021 128/64 08/12/2021 130/74 07/11/2021 122/74 2021 144/67 03/14/2021 118/62 11/29/2020 118/60 11/09/2020 112/68 10/27/2020 128/69 08/20/2020 130/70 07/14/2020 106/76 03/19/2020 132/72[rechecked 3 times[ 02/09/2020 148/80 10/03/2019 173/93 : has follow up with Dr. 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 OAC: no bleeding difficulties. Occasional bruising. Spiriva and intermittent albuterol has helped with cough. Stable. Review of Systems Constitutional: Negative. Respiratory: Negative. Cardiovascular: Negative. Objective BP 152/80 Pulse 76 Resp 16 Wt 60.3 kg (133 lb) BMI 22.83 kg/m Physical Exam Vitals and nursing note reviewed. Constitutional: Appearance: Normal appearance. HENT: Head: Normocephalic and atraumatic. Eyes: Conjunctiva/sclera: Conjunctivae normal. Neck: Thyroid: No thyromegaly. Cardiovascular: Rate and Rhythm: Normal rate. Pulses: Carotid pulses are 2+ on the right side and 2+ on the left side. Radial pulses are 2+ on the right side and 2+ on the left side. Heart sounds: Murmur heard. Systolic murmur is present with a grade of 3/6. Comments: RUAB c/w Pulmonary: Effort: Pulmonary effort is normal. Skin: General: Skin is warm and dry. Neurological: General: No focal deficit present. Mental Status: She is alert. ALLERGIES Allergen Reactions Penicillins Hives Medications tiotropium bromide (SPIRIVA RESPIMAT) 2.5 mcg/actuation inhaler^Inhale 2 Puffs as instructed once daily. Inhale two puffs once daily.^Disp: 3 Each^Rfl: 3 Irbesartan-hydroCHLOROthiazide 150-12.5 mg per tablet^Take 1 tablet by mouth once daily.^Disp: 90 tablet^Rfl: 3 SYMBICORT 160-4.5 mcg/actuation inhaler^USE 2 INHALATIONS TWICE A DAY INSTRUCTED^Disp: 3 Inhaler^Rfl: [address] (PROTONIX) 40 mg tablet^Take 1 tablet by mouth once daily.^Disp: 90 tablet^Rfl: 3 albuterol HFA (PROAIR HFA) 90 mcg/actuation inhaler^Inhale 2 Puffs as instructed every 4 hours as needed.^Disp: 1 Inhaler^Rfl: 2 potassium chloride ER (KLOR-CON M20) 20 mEq tablet^Take 1 tablet by mouth twice daily.^Disp: 180 tablet^Rfl: 3 naproxen (NAPROSYN) 500 mg tablet^Take 1 tablet by mouth twice daily as needed. Take with food^Disp: 120 tablet^Rfl: 3 warfarin (COUMADIN) 5 mg tablet^Take 7.5 mg , Sun, Sun, Sat, Sun; and 5 mg on Sunday and Sunday.^Disp: 180 tablet^Rfl: 3 gabapentin (NEURONTIN) 300 mg capsule^Take 1 capsule by mouth twice daily.^Disp: 180 capsule^Rfl: 3 leucovorin (LEUCOVORIN) 15 mg tablet^Take 15 mg by mouth once daily.^Disp: ^Rfl: HUMIRA PEN 40 mg/0.8 mL pnkt^Inject 40 mg subcutaneously. Every other week. ^Disp: ^Rfl: methotrexate 2.5 mg tablet^Take 2.5 mg by mouth every Sunday. PT takes 8 tabs every Sunday ^Disp: 12 tablet^Rfl: 0 Cholecalciferol, Vitamin D3, 1,000 unit ORAL Cap^Take 1 capsule by mouth once daily.^Disp: 1 capsule^Rfl: 0 omega-3 fatty acids/vitamin e(FISH OIL 1,000 MG CAP)^Take one(1) capsule daily.^Disp: ^Rfl: 0 THERAPEUTIC MULTIVITAMIN TAB^Take one(1) tablet daily.^Disp: ^Rfl: 0 fluticasone (FLONASE) 50 mcg/actuation nasal spray^Use 1 [place] in each nostril once daily.^Disp: 3 Bottle^Rfl: 3 (Patient not taking: No sig reported) PAST MEDICAL HISTORY Diagnosis Date Blood dyscrasia Disseminated histoplasmosis Colitis, immunosuppression, 01/2018. 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 Hurley ([facility]) Unspecified hemorrhoids without mention of complication Hemorrhoids Social History Tobacco Use Smoking status: Former Packs/day: 1.00 Years: 10.00 Pack years: 10.00 Types: Cigarettes Quit date: 02/19/1989 Years since quittin.7 Smokeless tobacco: Never Tobacco comments: Late heavy smoker. Vaping Use Vaping Use: Never used Substance Use Topics Alcohol use: Yes Comment: occasional Drug use: No Component Latest Ref Rng & Units 10/03/2019 11/17/2019 05/18/2020 07/07/2020 07/07/2020 9:05 AM 9:07 AM WBC 3.70 - 11.00 k/uL 7.47 5.61 RBC 3.90 - 5.20 m/uL 4.04 3.72 (L) Hemoglobin 11.5 - 15.5 g/dL 12.9 11.9 Hematocrit 36.0 - 46.0 % 39.7 36.7 MCV 80.0 - 100.0 fL 98.3 98.7 MCH 26.0 - 34.0 pG 31.9 32.0 MCHC 30.5 - 36.0 g/dL 32.5 32.4 RDW-CV 11.5 - 15.0 % 14.7 14.6 Platelet Count 150 - 400 k/uL 278 242 MPV 9.0 - 12.7 fL 11.2 11.5 Neut% % 66.6 Abs Neut (ANC) 1.45 - 7.50 k/uL 4.96 Lymph% % 22.0 Abs Lymph 1.00 - 4.00 k/uL 1.64 [place]% % 8.0 Abs [place] <0.87 k/uL 0.60 Eosin% % 2.7 Abs Eosin <0.46 k/uL 0.20 Baso% % 0.7 Abs Baso <0.11 k/uL 0.05 Nucleated Reds 0 /100 WBC 0.0 Absolute nRBC <0.01 k/uL <0.01 <0.01 Diff Type Auto Diff Glucose 74 - 99 mg/dL 76 BUN 7 - 21 mg/dL 22 (H) Creatinine 0.58 - 0.96 mg/dL 0.77 0.77 Sodium 136 - 144 mmol/L 135 (L) Potassium 3.7 - 5.1 mmol/L 4.0 Chloride 97 - 105 mmol/L 98 CO2 22 - 30 mmol/L 27 Anion Gap 9 - 18 mmol/L 10 Calcium 8.5 - 10.2 mg/dL 9.2 9.1 eGFR- >60 >60 eGFR-All Other Races . >60 >60 Albumin 3.9 - 4.9 g/dL 4.3 Bilirubin, Total 0.2 - 1.3 mg/dL 0.4 Bilirubin, Conjug <0.2 mg/dL <0.2 Alkaline Phosphatase 34 - 123 U/L 61 AST 13 - 35 U/L 32 ALT 7 - 38 U/L 21 Protein, Total 6.3 - 8.0 g/dL 6.6 Histoplasma Ag, Urine None detected. ng/mL None detected. Magnesium 1.7 - 2.3 mg/dL 1.8 ASSESSMENT/PLAN: 1. Essential hypertension - ICD9: 401.9, ICD10: I10 (primary diagnosis) She indicates she is not eating out a lot lately, likely increase sodium intake. Stable dose of naproxen. Recheck blood pressure in 1 month. No medication changes today. 2. Chronic obstructive pulmonary disease, unspecified COPD type (HCC) - ICD9: 496, ICD10: J44.9 - [id number] BL 3. Encounter for immunization - ICD9: V03.89, ICD10: Z23 - P[employer]ER[employer] COVID-19 BIVALENT BOOSTER VACCINE, AGE 12+ YR - INFLUENZA SEASONAL QUADRIVALENT HIGH DOSE AGE 65+ 4. Gastroesophageal reflux disease without esophagitis - ICD9: 530.81, ICD10: K21.9 5. Bronchiectasis without complication (HCC) - ICD9: 494.0, ICD10: J47.9 6. COPD without exacerbation (HCC) - ICD9: 496, ICD10: J44.9 7. Aortic stenosis with bicuspid valve - ICD9: 746.3, 746.4, ICD10: Q23.0, Q23.1 Jimbo Carias APRN.[employer]OLLEY CAR OPERATOR] Jimbo Carias APRN.CNS Medical Decision Making: Problems: Moderate: 1+ chronic illnesses with change and 2+ stable chronic illnesses Risk: Moderate: Drug management Medical Decision Making Level: 4 - Moderate documented in this encounter [facility] 11-09-2021 Miscellaneous Notes Filed order patients orders for coumadin clinic inr's has at this time. new order has been pended for approval if possible so that patient can continue to get inr's completed thru the coumadin clinic. coumadin clinic nurse only needs called if order can not be approved. documented in this encounter [facility] 11-08-2021 Miscellaneous Notes Patient has been identified by name and date of : Yes Pharmacy phones for refill(s): Requested Prescriptions Pending Prescriptions Disp Refills tiotropium bromide (SPIRIVA RESPIMAT) 2.5 mcg/actuation inhaler 3 Each 3 Sig: Inhale 2 Puffs as instructed once daily. Inhale two puffs once daily. Irbesartan-hydroCHLOROthiazide 150-12.5 mg per tablet 90 tablet 3 Sig: Take 1 tablet by mouth once daily. Date of last office visit in primary care: 09/20/21, NOV: 11/10/21 Last 2 Encounter Wt Readings: Date: Wt: 09/20/2021 58.5 kg (129 lb) 08/12/2021 59.4 kg (131 lb) Please advise. Thank you. Ruby Tobin RN documented in this encounter [facility] 11-01-2021 Instructions Yonas Louise - 11/01/2021 9:29 AM EDT Your ulceration is now healed Ok to continue with padding as needed F/u as needed documented in this encounter [facility] 11-01-2021 History of Presen t illness Narrative FOLLOW UP PODIATRIC OFFICE VISIT Chief Complaint: This 76 year old who presents for follow up:ulceration of left 5th toe Patient presents to clinic for follow-up ulceration of left 5th toe. Patient had been treating with aquacel but she has now stopped wrapping as she feels it is healed. Patient has not had any pain. She does not require the gel padding that was dispensed. PAIN EVALUATION No data found in the last 1 encounters. No results found for: HBA1C PCP: Claudine Durán MD PAST MEDICAL HISTORY Diagnosis Date Blood dyscrasia Disseminated histoplasmosis Colitis, immunosuppression, 01/2018. 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 Hurley ([facility]) Unspecified hemorrhoids without mention of complication Hemorrhoids Current Outpatient Medications Medication Sig warfarin (COUMADIN) 5 mg tablet Take 7.5 mg , Sun, Anabel, Sat, Sun; and 5 mg on Sunday and Sunday. SYMBICORT 160-4.5 mcg/actuation inhaler USE 2 INHALATIONS TWICE A DAY INSTRUCTED pantoprazole DR (PROTONIX) 40 mg tablet Take 1 tablet by mouth once daily. albuterol HFA (PROAIR HFA) 90 mcg/actuation inhaler Inhale 2 Puffs as instructed every 4 hours as needed. potassium chloride ER (KLOR-CON M20) 20 mEq tablet Take 1 tablet by mouth twice daily. naproxen (NAPROSYN) 500 mg tablet Take 1 tablet by mouth twice daily as needed. Take with food warfarin (COUMADIN) 5 mg tablet Take 7.5 mg , Sun, Anabel, Sat, Sun; and 5 mg on Sunday and Sunday. tiotropium bromide (SPIRIVA RESPIMAT) 2.5 mcg/actuation inhaler Inhale 2 Puffs as instructed once daily. Inhale two puffs once daily. gabapentin (NEURONTIN) 300 mg capsule Take 1 capsule by mouth twice daily. Irbesartan-hydroCHLOROthiazide 150-12.5 mg per tablet Take 1 tablet by mouth once daily. econazole (SPECTAZOLE) 1 % cream Apply to affected area once daily. to L fifth toe leucovorin (LEUCOVORIN) 15 mg tablet Take 15 mg by mouth once daily. HUMIRA PEN 40 mg/0.8 mL pnkt Inject 40 mg subcutaneously. Every other week. methotrexate 2.5 mg tablet Take 2.5 mg by mouth every Sunday. PT takes 8 tabs every Sunday Cholecalciferol, Vitamin D3, 1,000 unit ORAL Cap Take 1 capsule by mouth once daily. omega-3 fatty acids/vitamin e(FISH OIL 1,000 MG CAP) Take one(1) capsule daily. THERAPEUTIC MULTIVITAMIN TAB Take one(1) tablet daily. fluticasone (FLONASE) 50 mcg/actuation nasal spray Use 1 [place] in each nostril once daily. (Patient not taking: No sig reported) FOLIC ACID 1 MG TAB Take 2 tablets once daily (Patient not taking: Reported on 10/18/2021) Current Facility-Administered Medications Medication Dose Route Frequency perflutren lipid microspheres 1.3 mL in NaCl (PF) 0.9% 10 mL injection (DEFINITY) INTRAVENOUS DIRECTED PRN sodium chloride 0.9 % (flush) 10 mL (BD POSIFLUSH) 10 mL INTRAVENOUS DIRECTED PRN sodium chloride 0.9 % (flush) 10 mL (BD POSIFLUSH) 10 mL INTRAVENOUS DIRECTED PRN ALLERGIES Allergen Reactions Penicillins Hives PAST SURGICAL HISTORY Procedure Laterality Date COLONOSCOPY FLX DX W/COLLJ SPEC WHEN PFRMD 10/23 Colonoscopy COLONOSCOPY FLX DX W/COLLJ SPEC WHEN PFRMD 05/18/2014 Colonoscopy COLONOSCOPY FLX DX W/COLLJ SPEC WHEN PFRMD 02/25/2018 Colonoscopy COLONOSCOPY FLX DX W/COLLJ SPEC WHEN PFRMD 03/24/2019 Colonoscopy ESOPHAGOGASTRODUODENOSCOPY TRANSORAL DIAGNOSTIC 02/25/2018 EGD FILTER PLACEMENT (VENA CAVA) 12/28/06 INTRO. OF CATH SUP/INF VENA CAVA 12/28/06 LUMBAR SPINE FUSN,POST INTERBODY 2011 Dr. Armando at [facility]. Diskectomy and laminectomy PAST SURGICAL HISTORY OF 03/07/1999 removal facial lesion PAST SURGICAL HISTORY OF 08/17/14 excision soft tissue mass left index finger TONSILLECTOMY PRIMARY/SECONDARY <AGE 12 TRANSCATH RETRIEVAL,PERCUT 12/28/06 Physical Exam: OBJECTIVE: Constitutional: Pt is a well developed 76 year old female who is alert, oriented, cooperative and in no apparent distress. Eyes: Following during examination. No redness or drainage. Respiratory: RR normal and nonlabored. Even breathing. No evidence of distress. Psychology: Patient is engaged during conversation. Normal affect and mood. Does not appear depressed or anxious. NVSI unchanged from previous visit. Dermatological: Nails 1-5 left are normal. Webspaces clean and dry 1-4 left. Skin appears well hydrated and supple. good color, texture, turgor. No open lesions present. Ulceration of left 5th toe is now healed Musculoskeletal/Orthopaedic: Patient has no pain to palpation of left 5th toe Patient does have severe arthritis of left 1st mtpj with cocked up left great toe. This is painful. ASSESSMENT: (L97.521) Ulcer of toe of left foot, limited to breakdown of skin (HCC) (primary encounter diagnosis) (M20.42) Hammer toe of left foot (M20.22) Hallux rigidus of left foot PLAN: Ulceration of left 5th toe is now healed. Small callus minimally debrided today. In order to perform a complete physical exam, limited shaving of callus area was performed. This incidental service is integral to the evaluation and management visit in order to appropriately manage and treat the patient (for their complaint or for this visit). Continue with padding as needed Discussed arthritis of left first mtpj. If this bothers her, would do first mtpj fusion. I do feel first mtpj fusion would bring her toe down and this would lead to less rubbing on the hallux if she develops pain in the hallux ipj in future following first mtpj fusion, she could opt for artrhoplasty or fusion of ipj but I feel fusing ipj alone would lead to continued pain because her toe would still be cocked up as the deformity appears to be most severe at mtpj. Patient would like to think about surgery at this time. Yonas Louise DPM AMB ROOMING INTAKE FLOWSHEET DATA Risk Screening Do you have concerns about personal safety or safety in the home?: No Patient presents with: Left Foot - Follow Up, Ulcer Patient thinks ulcer is healed. Has stopped wrapping it. documented in this encounter [facility] 10-27-2021 History of Presen t illness Narrative patient had inr completed at [facility] patients inr is 1.6 (patients inr range is 1.7-2.2) patient is currently taking 5mg Mon,Wed,Fri and 7.5mg all other days patients last dose change was on 02/24/21 due to a high level of 3.2 (dose at that time was 7.5mg daily) patient has had no changes in medication and patient missed yesterdays dose and no change in diet Advised patient to continue on the same dose(s) and that they would only be contacted regarding dosage and follow up instructions after review with provider, if a change is needed. Written instructions given and patient verbalized understanding. Presently scheduled in 4 weeks (11/24/21) for follow up INR. documented in this encounter [facility] 10-18-2021 Instructions Yonas Louise - 10/18/2021 9:[address] aquacel on ulceration daily Place lambs wool or guaze horizontally between the interspace Secure lambs wool or guaze with blanca wrap or tape Wear surgical shoe or wide sneaker or even sandal to avoid pressure on 5th toe documented in this encounter [facility] 10-18-2021 History of Presen t illness Narrative Initial Podiatric Office Visit: Chief Complaint: This 76 year old female who presents with chief complaint:ulceration/blister of left 5th toe HPI Patient presents to clinic for evaluation of left foot. Patient states that she developed blister to left 5th toe back In August. The blister is between the 4th and 5th toe. She states that the longer she was on her foot wearing boots, the more pain she has. She recently developed redness to the left foot and was placed on antibiotic by Jimbo Carias. She is using lambs wool between the toes. Patient does feel the lambs wool is helping PAIN EVALUATION 10/18/2021 0850 Pain Level: 4 Pain Location: Toe Description: Sharp;Raw;Sore Duration Amount of Time: 2 Duration Units: Months Frequency: Intermittent Intervention/Comfort measure: Reposition;Relaxation No results found for: HBA1C PCP: Claudine Durán MD PAST MEDICAL HISTORY Diagnosis Date Blood dyscrasia Disseminated histoplasmosis Colitis, immunosuppression, 01/2018. 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 Hurley ([facility]) Unspecified hemorrhoids without mention of complication Hemorrhoids Current Outpatient Medications Medication Sig SYMBICORT 160-4.5 mcg/actuation inhaler USE 2 INHALATIONS TWICE A DAY INSTRUCTED pantoprazole DR (PROTONIX) 40 mg tablet Take 1 tablet by mouth once daily. albuterol HFA (PROAIR HFA) 90 mcg/actuation inhaler Inhale 2 Puffs as instructed every 4 hours as needed. potassium chloride ER (KLOR-CON M20) 20 mEq tablet Take 1 tablet by mouth twice daily. naproxen (NAPROSYN) 500 mg tablet Take 1 tablet by mouth twice daily as needed. Take with food warfarin (COUMADIN) 5 mg tablet Take 7.5 mg , Sun, Sun, Sun, Sun; and 5 mg on Sunday and Sunday. tiotropium bromide (SPIRIVA RESPIMAT) 2.5 mcg/actuation inhaler Inhale 2 Puffs as instructed once daily. Inhale two puffs once daily. gabapentin (NEURONTIN) 300 mg capsule Take 1 capsule by mouth twice daily. Irbesartan-hydroCHLOROthiazide 150-12.5 mg per tablet Take 1 tablet by mouth once daily. econazole (SPECTAZOLE) 1 % cream Apply to affected area once daily. to L fifth toe leucovorin (LEUCOVORIN) 15 mg tablet Take 15 mg by mouth once daily. HUMIRA PEN 40 mg/0.8 mL pnkt Inject 40 mg subcutaneously. Every other week. methotrexate 2.5 mg tablet Take 2.5 mg by mouth every Sunday. PT takes 8 tabs every Sunday Cholecalciferol, Vitamin D3, 1,000 unit ORAL Cap Take 1 capsule by mouth once daily. omega-3 fatty acids/vitamin e(FISH OIL 1,000 MG CAP) Take one(1) capsule daily. THERAPEUTIC MULTIVITAMIN TAB Take one(1) tablet daily. fluticasone (FLONASE) 50 mcg/actuation nasal spray Use 1 [place] in each nostril once daily. (Patient not taking: Reported on 10/18/2021) FOLIC ACID 1 MG TAB Take 2 tablets once daily (Patient not taking: Reported on 10/18/2021) Current Facility-Administered Medications Medication Dose Route Frequency perflutren lipid microspheres 1.3 mL in NaCl (PF) 0.9% 10 mL injection (DEFINITY) INTRAVENOUS DIRECTED PRN sodium chloride 0.9 % (flush) 10 mL (BD POSIFLUSH) 10 mL INTRAVENOUS DIRECTED PRN sodium chloride 0.9 % (flush) 10 mL (BD POSIFLUSH) 10 mL INTRAVENOUS DIRECTED PRN ALLERGIES Allergen Reactions Penicillins Hives PAST SURGICAL HISTORY Procedure Laterality Date COLONOSCOPY FLX DX W/COLLJ SPEC WHEN PFRMD 10/23 Colonoscopy COLONOSCOPY FLX DX W/COLLJ SPEC WHEN PFRMD 05/18/2014 Colonoscopy COLONOSCOPY FLX DX W/COLLJ SPEC WHEN PFRMD 02/25/2018 Colonoscopy COLONOSCOPY FLX DX W/COLLJ SPEC WHEN PFRMD 03/24/2019 Colonoscopy ESOPHAGOGASTRODUODENOSCOPY TRANSORAL DIAGNOSTIC 02/25/2018 EGD FILTER PLACEMENT (VENA CAVA) 12/28/06 INTRO. OF CATH SUP/INF VENA CAVA 12/28/06 LUMBAR SPINE FUSN,POST INTERBODY 2012 Dr. Armando at [facility]. Diskectomy and laminectomy PAST SURGICAL HISTORY OF 03/07/1999 removal facial lesion PAST SURGICAL HISTORY OF 08/17/14 excision soft tissue mass left index finger TONSILLECTOMY PRIMARY/SECONDARY <AGE 12 TRANSCATH RETRIEVAL,PERCUT 12/28/06 FAMILY HISTORY Problem Relation Age of Onset Cancer Mother brain Social History Tobacco Use Smoking status: Former Packs/day: 1.00 Years: 10.00 Pack years: 10.00 Types: Cigarettes Quit date: 02/19/1989 Years since quittin.6 Smokeless tobacco: Never Tobacco comments: Late heavy smoker. Vaping Use Vaping Use: Never used Substance Use Topics Alcohol use: Yes Comment: occasional Drug use: No REVIEW OF SYSTEMS GENERAL: Negative for Malaise, significant weight loss, fever RESPIRATORY: Negative for cough, wheezing and shortness of breath CARDIOVASCULAR: Negative for chest pain, leg swelling and palpitations GI: Negative for abdominal discomfort, blood in stools or black stools and change in bowel habits : Negative for dysuria, frequency and incontinence MUSCULOSKELETAL: Negative for joint pain or swelling, back pain, and muscle pain. SKIN: Negative for lesions, rash, and itching. HEMATOLOGY/LYMPHOLOGY Negative for prolonged bleeding, bruising easily, and swollen nodes. ENDOCRINE: Negative for cold or heat intolerance, polyuria, polydipsia and goiter. NEURO: negative Physical Exam: Constitutional: Pt is a well developed 76 year old female who is alert, oriented and cooperative Eyes: Following during examination. No redness or drainage. Respiratory: RR normal and nonlabored. Even breathing. No evidence of distress or shortness of breath. Psychology: Patient is engaged during conversation. Normal affect and mood. Does not appear depressed or anxious during encounter. Vascular: Dorsalis pedis and posterior tibial pulses palpable as b/l Capillary Fill time < 5 seconds to digits 1-5 b/l Skin temperature warm to warm proximal to distal b/l Hair growth present to digits Neurological: intact light touch/epicritic sensation b/l intact protective sensation no significant neurological deficits Dermatological: Nails 1-5 b/l appear thick, discolored, painful. Webspaces clean and dry 1-4 b/l. Skin appears well hydrated and supple. good color, texture, turgor. No open lesions present. 1 mm x 1 mm noninfected ulceration is noted along the medial aspect of left 5th toe Musculoskeletal/Orthopaedic: Patient has pain to palpation of left 5th toe. Radiographs: ordered ASSESSMENT: (L97.521) Ulcer of toe of left foot, limited to breakdown of skin (HCC) (primary encounter diagnosis) (M20.42) Hammer toe of left foot (L60.3) Onychodystrophy Pain in toe PLAN: 1. Discussed ulceration of left 5th toe. No signs of infection. Discussed etiology of ulceration, that being rubbing between toes. Will have patient treat the ulceration with aquacel followed by guaze or lambs wool to prevent rubbing. Once ulceration heals, can use hammertoe gel padding to prevent rubbing. 2. Today, ulceration was debrided of nonviablet issue with tissue nippers. Debridement was performed thru dermis with tissue nippers. Total debridement was 1 mm x 1 mm. 3. Will get baseline xrays. 4. Toenaisl 1-5 b/l debrided in length and thickness Yonas Louise DPM Podiatry [address] [facility] [address] Dept: [phone] Dept AMB ROOMING INTAKE FLOWSHEET DATA Pain Pain Level: 4 Pain Location: Toe Description: Sharp, Raw, Sore Duration Amount of Time: 2 Duration Units: Months Frequency: Intermittent Intervention/Comfort measure: Reposition, Relaxation Patient presents with: Right Foot - Established Patient, Follow Up, Pain, Blister Imelda Quijano LPN documented in this encounter [facility] 10-18-2021 Miscellaneous Notes Pt only has enough for up to a half dose tomorrow night. Please send short dose until mail in pharmacy sends refill. Patient has been identified by name and date of : Yes Patient phones for refill(s): Requested Prescriptions Pending Prescriptions Disp Refills warfarin (COUMADIN) 5 mg tablet 30 tablet 0 Sig: Take 7.5 mg , Sun, Sun, Sun, Sun; and 5 mg on Sunday and Sunday. Date of last office visit in primary care: 09/20/21 Future visit: 03/13/22 Last 2 Encounter Wt Readings: Date: Wt: 09/20/2021 58.5 kg (129 lb) 08/12/2021 59.4 kg (131 lb) Previous labs/tests for medication: Coumadin: PT INR (no units) Date Value 07/07/2021 1.7 INR (POCT) (no units) Date Value 09/29/2021 2.0 Please advise. Thank you. Muna Porter RN documented in this encounter [facility] 10-12-2021 History of Presen t illness Narrative Radiology Service Progress Note PATIENT NAME: Haydee Bustamante DATE OF SERVICE: October 12, 2021 TIME: 10:06 AM PATIENT IDENTITY VERIFICATION COMPLETED USING TWO (2) IDENTIFIERS: Name and Date of confirmed by patient verbally. FALL SCREENING: Has the patient had 2 falls in the last year or 1 fall with injury or currently using an Ambulatory Assistive Device (Walker, Cane, Wheelchair, Crutches, etc.)? No PATIENT GENDER DATA: Female. status: : No status: NO. PATIENT RELEVANT IMPLANT DATA REVIEWED: Not Applicable RADIOLOGY DEPARTMENT: Ultrasound PERIPHERAL IV DATA: Not applicable SIGNED BY: RT Vanessa(R) October 12, 2021 10:06 AM documented in this encounter [facility] 10-12-2021 History of Presen t illness Narrative Radiology Service Progress Note PATIENT NAME: Haydee Bustamante DATE OF SERVICE: October 12, 2021 TIME: 9:56 AM PATIENT IDENTITY VERIFICATION COMPLETED USING TWO (2) IDENTIFIERS: Name and Date of confirmed by patient verbally. FALL SCREENING: Has the patient had 2 falls in the last year or 1 fall with injury or currently using an Ambulatory Assistive Device (Walker, Cane, Wheelchair, Crutches, etc.)? No PATIENT GENDER DATA: Female. status: : No status: NO. PATIENT RELEVANT IMPLANT DATA REVIEWED: Not Applicable RADIOLOGY DEPARTMENT: Mammography PERIPHERAL IV DATA: Not applicable SIGNED BY: Haider Garcia October 12, 2021 9:56 AM documented in this encounter [facility] 09-29-2021 History of Presen t illness Narrative Continue current Coumadin dose unchanged and check INR in 4 weeks patient had inr completed at [facility] patients inr is 2.0 (patients inr range is 1.7-2.2) patient is currently taking 5mg Mon,Wed,Fri and 7.5mg all other days patients last dose change was on 02/24/21 due to a high level of 3.2 (dose at that time was 7.5mg daily) patient has had no changes in medication and no missed doses and no change in diet Advised patient to continue on the same dose(s) and that they would only be contacted regarding dosage and follow up instructions after review with provider, if a change is needed. Written instructions given and patient verbalized understanding. Presently scheduled in 4 weeks (10/27/21) for follow up INR. documented in this encounter [facility] 09-20-2021 Instructions Jimbo Carias APRN.CNS - 09/20/2021 1:55 PM EDT Keep your toe clean dry and . Was with soap and water daily, dry thoroughly. Use lambswool between toes. Avoid tight shoes documented in this encounter [facility] 09-20-2021 History of Presen t illness Narrative SUBJECTIVE: BP CONTROLLED (<130/80) Never done ALPHA-1 ANTITRYPSIN DEFICIENCY SCREENING Never done ADVANCE DIRECTIVE DISCUSSION Never done DEPRESSION SCREENING due on 07/13/2021 HPI Haydee Bustamante is a 76 year old female. Her past medical history significant for GERD, meralgia paresthetica, history of embolism and thrombosis, recurrent, voice disorder, arthropathy, enthesopathy of hip region, elevated liver enzymes, long-term current use of anticoagulation, herniated lumbar disc, atrophic vaginitis ganglion cyst essential hypertension rheumatoid arthritis hip and back pain, iron deficiency anemia, aortic stenosis with bicuspid valve, lung nodule bronchiectasis and COPD. 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 No noted AEs. HTN: Ms. Bustamante indicates that she is feeling well and denies any symptoms referable to elevated blood pressure. Specifically denies headache, chest pain, palpitations, dyspnea, peripheral edema, orthopnea, fatigue and PND. Last 14 Encounter BP Readings: Date: BP: 11/09/2020 112/68 10/27/2020 128/69 08/20/2020 130/70 07/14/2020 106/76 03/19/2020 132/72[rechecked 3 times[ 02/09/2020 148/80 10/03/2019 173/93 08/28/2019 128/76 04/01/2019 138/68 03/14/2019 106/56 03/13/2019 116/70 02/24/2019 114/64 02/10/2019 154/70[Recheck B/P LA 158/80[ 02/07/2019 138/70 : has follow up with Dr. 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 Histoplasmosis: notes resolved symptoms. OAC: no bleeding difficulties. Occasional bruising. Spiriva and intermittent albuterol has helped with cough. Presents today for foot lesion. 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 She notes that she started wearing looser shoes about 1 week ago. Noted a blister between her fourth and fifth toe that was lanced. Now with painful area that she has been applying topical antibacterial ointment to and supporting her toes with lambswool. No drainage. Is painful. Review of Systems Constitutional: Negative. Cardiovascular: Negative. Skin: Positive for wound. Objective BP 128/64 Pulse 85 Wt 58.5 kg (129 lb) SpO2 96% BMI 22.14 kg/m Physical Exam Vitals and nursing note reviewed. Constitutional: Appearance: Normal appearance. HENT: Head: Normocephalic and atraumatic. Eyes: Conjunctiva/sclera: Conjunctivae normal. Neck: Thyroid: No thyromegaly. Cardiovascular: Rate and Rhythm: Normal rate. Pulses: Carotid pulses are 2+ on the right side and 2+ on the left side. Radial pulses are 2+ on the right side and 2+ on the left side. Pulmonary: Effort: Pulmonary effort is normal. Feet: Comments: Warmth and erythema of the fifth toe, maceration and open wound between fourth and fifth toe, pink wound base proxy 1/2 inch diameter, no drainage no warmth Skin: General: Skin is warm and dry. Neurological: General: No focal deficit present. Mental Status: She is alert. ALLERGIES Allergen Reactions Penicillins Hives Medications doxycycline (VIBRA-TABS) 100 mg tablet Take 1 tablet by mouth twice daily for 10 days. mupirocin (BACTROBAN) 2 % ointment Apply 1 application to affected area twice daily for 10 days. SYMBICORT 160-4.5 mcg/actuation inhaler USE 2 INHALATIONS TWICE A DAY INSTRUCTED pantoprazole DR (PROTONIX) 40 mg tablet Take 1 tablet by mouth once daily. albuterol HFA (PROAIR HFA) 90 mcg/actuation inhaler Inhale 2 Puffs as instructed every 4 hours as needed. potassium chloride ER (KLOR-CON M20) 20 mEq tablet Take 1 tablet by mouth twice daily. naproxen (NAPROSYN) 500 mg tablet Take 1 tablet by mouth twice daily as needed. Take with food warfarin (COUMADIN) 5 mg tablet Take 7.5 mg , Sun, Sun, Sun, Sun; and 5 mg on Sunday and Sunday. tiotropium bromide (SPIRIVA RESPIMAT) 2.5 mcg/actuation inhaler Inhale 2 Puffs as instructed once daily. Inhale two puffs once daily. gabapentin (NEURONTIN) 300 mg capsule Take 1 capsule by mouth twice daily. Irbesartan-hydroCHLOROthiazide 150-12.5 mg per tablet Take 1 tablet by mouth once daily. fluticasone (FLONASE) 50 mcg/actuation nasal spray Use 1 [place] in each nostril once daily. econazole (SPECTAZOLE) 1 % cream Apply to affected area once daily. to L fifth toe leucovorin (LEUCOVORIN) 15 mg tablet Take 15 mg by mouth once daily. HUMIRA PEN 40 mg/0.8 mL pnkt Inject 40 mg subcutaneously. Every other week. methotrexate 2.5 mg tablet Take 2.5 mg by mouth every Sunday. PT takes 8 tabs every Sunday Cholecalciferol, Vitamin D3, 1,000 unit ORAL Cap Take 1 capsule by mouth once daily. omega-3 fatty acids/vitamin e(FISH OIL 1,000 MG CAP) Take one(1) capsule daily. FOLIC ACID 1 MG TAB Take 2 tablets once daily THERAPEUTIC MULTIVITAMIN TAB Take one(1) tablet daily. PAST MEDICAL HISTORY Diagnosis Date Blood dyscrasia Disseminated histoplasmosis Colitis, immunosuppression, 01/2018. 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 Hurley ([facility]) Unspecified hemorrhoids without mention of complication Hemorrhoids Social History Tobacco Use Smoking status: Former Smoker Packs/day: 1.00 Years: 10.00 Pack years: 10.00 Types: Cigarettes Quit date: 02/19/1989 Years since quittin.6 Smokeless tobacco: Never Used Tobacco comment: Late heavy smoker. Vaping Use Vaping Use: Never used Substance Use Topics Alcohol use: Yes Comment: occasional Drug use: No Component Latest Ref Rng & Units 10/03/2019 11/17/2019 05/18/2020 07/07/2020 07/07/2020 9:05 AM 9:07 AM WBC 3.70 - 11.00 k/uL 7.47 5.61 RBC 3.90 - 5.20 m/uL 4.04 3.72 (L) Hemoglobin 11.5 - 15.5 g/dL 12.9 11.9 Hematocrit 36.0 - 46.0 % 39.7 36.7 MCV 80.0 - 100.0 fL 98.3 98.7 MCH 26.0 - 34.0 pG 31.9 32.0 MCHC 30.5 - 36.0 g/dL 32.5 32.4 RDW-CV 11.5 - 15.0 % 14.7 14.6 Platelet Count 150 - 400 k/uL 278 242 MPV 9.0 - 12.7 fL 11.2 11.5 Neut% % 66.6 Abs Neut (ANC) 1.45 - 7.50 k/uL 4.96 Lymph% % 22.0 Abs Lymph 1.00 - 4.00 k/uL 1.64 [place]% % 8.0 Abs [place] <0.87 k/uL 0.60 Eosin% % 2.7 Abs Eosin <0.46 k/uL 0.20 Baso% % 0.7 Abs Baso <0.11 k/uL 0.05 Nucleated Reds 0 /100 WBC 0.0 Absolute nRBC <0.01 k/uL <0.01 <0.01 Diff Type Auto Diff Glucose 74 - 99 mg/dL 76 BUN 7 - 21 mg/dL 22 (H) Creatinine 0.58 - 0.96 mg/dL 0.77 0.77 Sodium 136 - 144 mmol/L 135 (L) Potassium 3.7 - 5.1 mmol/L 4.0 Chloride 97 - 105 mmol/L 98 CO2 22 - 30 mmol/L 27 Anion Gap 9 - 18 mmol/L 10 Calcium 8.5 - 10.2 mg/dL 9.2 9.1 eGFR- >60 >60 eGFR-All Other Races . >60 >60 Albumin 3.9 - 4.9 g/dL 4.3 Bilirubin, Total 0.2 - 1.3 mg/dL 0.4 Bilirubin, Conjug <0.2 mg/dL <0.2 Alkaline Phosphatase 34 - 123 U/L 61 AST 13 - 35 U/L 32 ALT 7 - 38 U/L 21 Protein, Total 6.3 - 8.0 g/dL 6.6 Histoplasma Ag, Urine None detected. ng/mL None detected. Magnesium 1.7 - 2.3 mg/dL 1.8 ASSESSMENT/PLAN: ASSESSMENT/PLAN: 1. Toe infection - ICD9: 686.9, ICD10: L08.9 (primary diagnosis) Doxycycline x10 days Avoid offending shoes Keep your toe clean dry and . Was with soap and water daily, dry thoroughly. Use lambswool between toes. Let us know if not improving. Jimbo Carias APRN.CNS Medical Decision Making: Problems: Low: Acute, uncomplicated illness or injury Risk: Moderate: Drug management Medical Decision Making Level: 3 - Low documented in this encounter [facility] 09-05-2021 Miscellaneous Notes September 05, 2021 PID: [id number] Haydee Bustamante [address] [place] [address] Dear Ms. Bustamante, Your recent breast imaging exam on 09/05/2021 showed a possible finding that requires additional imaging studies for a complete evaluation. Most such findings are probably benign (not cancer). If you have a healthcare provider who ordered/prescribed your screening mammogram: Please call [phone] or EXT: [phone] to schedule an appointment for your additional imaging (if you have not already done so). If you DO NOT have a healthcare provider (ie you did not have an order/prescription for your screening mammogram): Please call to schedule an appointment for your additional imaging (if you have not already done so). You must have an order/prescription from your physician when calling to schedule your appointment. If your order/prescription is not electronic, you must bring the hard copy with you on the day of your exam to avoid delays. Your imaging studies and reports are kept on file at [facility] as part of your permanent medical record, and are available for your continuing care. Thank you for allowing us to help in meeting your health care needs. Sincerely, Dr. Bell Interpreting Radiologist [facility] (Additional imaging) documented in this encounter [facility] 09-05-2021 History of Presen t illness Narrative Radiology Service Progress Note PATIENT NAME: Haydee Bustamante DATE OF SERVICE: September 05, 2021 TIME: 9:28 AM PATIENT IDENTITY VERIFICATION COMPLETED USING TWO (2) IDENTIFIERS: Name and Date of confirmed by patient verbally. FALL SCREENING: Has the patient had 2 falls in the last year or 1 fall with injury or currently using an Ambulatory Assistive Device (Walker, Cane, Wheelchair, Crutches, etc.)? No PATIENT GENDER DATA: Female. status: : No status: NO. PATIENT RELEVANT IMPLANT DATA REVIEWED: Not Applicable RADIOLOGY DEPARTMENT: Mammography PERIPHERAL IV DATA: Not applicable SIGNED BY: Lucero HernandezDailyevent Pete September 05, 2021 9:28 AM documented in this encounter [facility] 08-23-2021 History of Presen t illness Narrative per verbal order by instruction librarian provider dr rowell she agrees with information patient had inr completed at [facility] patients inr is 2.2 (patients inr range is 1.8-2.2) patient is currently taking 5mg Mon,Wed,Fri and 7.5mg all other days patients last dose change was on 02/24/21 due to a high level of 3.2 (dose at that time was 7.5mg daily) patient has had no changes in medication and no missed doses and no change in diet Advised patient to continue on the same dose(s) and that they would only be contacted regarding dosage and follow up instructions after review with provider, if a change is needed. Written instructions given and patient verbalized understanding. Presently scheduled in 1 month (09/29/21) for follow up INR. documented in this encounter [facility] 08-12-2021 History of Presen t illness Narrative Images from the original note were not included. [facility] SE[facility] OUTPATIENT VISIT DATE August 12, 2021 PRIMARY CARE PHYSICIAN: Claudine Durán [address] [place] [address] HISTORY OF PRESENT ILLNESS: Ms. Bustamante is a 76 year old female. The patient returns for follow-up due to history of known bicuspid aortic valve stenosis. Previous stenosis has been evaluation as showed this to be mild. Additional history includes hypertension. 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 She is planning on doing [employer] again this summer. She denies chest discomfort, dyspnea, orthopnea, paroxysmal nocturnal dyspnea, palpitations, near-syncope or syncope. Her EKG performed today is stable. PLAN AND RECOMMENDATIONS: The patient remained stable without apparent symptoms that would suggest angina or cardiac decompensation. She however will need her echocardiogram updated to review the degree of her bicuspid valve aortic stenosis. We have otherwise made no additions or changes. Dietary and lifestyle modification was reemphasized to facilitate risk factor reduction. We will otherwise look forward to reevaluating her in 1 years time. Vitals: BP 130/74 Pulse 72 Ht 162.6 cm (5' 4 ) Wt 59.4 kg (131 lb) SpO2 99% BMI 22.49 kg/m Physical Exam Vitals reviewed. Constitutional: Appearance: She is well-developed. HENT: Head: Normocephalic and atraumatic. Eyes: Pupils: Pupils are equal, round, and reactive to light. Neck: Thyroid: No thyromegaly. Vascular: No JVD. Cardiovascular: Rate and Rhythm: Normal rate and regular rhythm. Heart sounds: Murmur heard. Crescendo decrescendo systolic murmur is present with a grade of 2/6. No friction rub. No gallop. Pulmonary: Effort: Pulmonary effort is normal. No respiratory distress. Breath sounds: Normal breath sounds. No wheezing or rales. Abdominal: General: Bowel sounds are normal. Palpations: Abdomen is soft. Musculoskeletal: General: Normal range of motion. Cervical back: Normal range of motion and neck supple. Skin: General: Skin is warm and dry. Coloration: Skin is not pale. Neurological: Mental Status: She is alert and oriented to person, place, and time. Cranial Nerves: No cranial nerve deficit. Psychiatric: Behavior: Behavior normal. Thought Content: Thought content normal. Judgment: Judgment normal. Review of Systems Constitutional: Negative for activity change and fatigue. HENT: Negative for ear pain and facial swelling. Eyes: Negative for pain and discharge. Respiratory: Negative for chest tightness and shortness of breath. Cardiovascular: Negative for chest pain, palpitations and leg swelling. Gastrointestinal: Negative for abdominal pain, blood in stool, nausea and vomiting. Endocrine: Negative for cold intolerance and heat intolerance. Genitourinary: Negative for frequency and hematuria. Musculoskeletal: Negative for arthralgias and gait problem. Skin: Negative for color change, pallor and rash. Allergic/Immunologic: Negative for immunocompromised state. Neurological: Negative for dizziness, syncope, light-headedness and headaches. Hematological: Negative for adenopathy. Does not bruise/bleed easily. Psychiatric/Behavioral: Negative for confusion. The patient is not nervous/anxious. PAST MEDICAL HISTORY Diagnosis Date Blood dyscrasia Disseminated histoplasmosis Colitis, immunosuppression, 01/2018. 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 Hurley ([facility]) Unspecified hemorrhoids without mention of complication Hemorrhoids PAST SURGICAL HISTORY Procedure Laterality Date COLONOSCOPY FLX DX W/COLLJ SPEC WHEN PFRMD 10/23 Colonoscopy COLONOSCOPY FLX DX W/COLLJ SPEC WHEN PFRMD 05/18/2014 Colonoscopy COLONOSCOPY FLX DX W/COLLJ SPEC WHEN PFRMD 02/25/2018 Colonoscopy COLONOSCOPY FLX DX W/COLLJ SPEC WHEN PFRMD 03/24/2019 Colonoscopy ESOPHAGOGASTRODUODENOSCOPY TRANSORAL DIAGNOSTIC 02/25/2018 EGD FILTER PLACEMENT (VENA CAVA) 12/28/06 INTRO. OF CATH SUP/INF VENA CAVA 12/28/06 LUMBAR SPINE FUSN,POST INTERBODY 2012 Dr. Armando at [facility]. Diskectomy and laminectomy PAST SURGICAL HISTORY OF 03/07/1999 removal facial lesion PAST SURGICAL HISTORY OF 08/17/14 excision soft tissue mass left index finger TONSILLECTOMY PRIMARY/SECONDARY <AGE 14 TRANSCATH RETRIEVAL,PERCUT 12/28/06 Social History Tobacco Use Smoking status: Former Smoker Packs/day: 1.00 Years: 10.00 Pack years: 10.00 Types: Cigarettes Quit date: 02/19/1989 Years since quittin.4 Smokeless tobacco: Never Used Tobacco comment: Late heavy smoker. Vaping Use Vaping Use: Never used Substance Use Topics Alcohol use: Yes Comment: occasional Drug use: No FAMILY HISTORY Problem Relation Age of Onset Cancer Mother brain ALLERGIES Allergen Reactions Penicillins Hives CURRENT MEDICATIONS: SYMBICORT 160-4.5 mcg/actuation inhaler USE 2 INHALATIONS TWICE A DAY INSTRUCTED pantoprazole DR (PROTONIX) 40 mg tablet Take 1 tablet by mouth once daily. albuterol HFA (PROAIR HFA) 90 mcg/actuation inhaler Inhale 2 Puffs as instructed every 4 hours as needed. potassium chloride ER (KLOR-CON M20) 20 mEq tablet Take 1 tablet by mouth twice daily. naproxen (NAPROSYN) 500 mg tablet Take 1 tablet by mouth twice daily as needed. Take with food warfarin (COUMADIN) 5 mg tablet Take 7.5 mg , Sun, Sun, Sat, Sun; and 5 mg on Sunday and Sunday. tiotropium bromide (SPIRIVA RESPIMAT) 2.5 mcg/actuation inhaler Inhale 2 Puffs as instructed once daily. Inhale two puffs once daily. gabapentin (NEURONTIN) 300 mg capsule Take 1 capsule by mouth twice daily. Irbesartan-hydroCHLOROthiazide 150-12.5 mg per tablet Take 1 tablet by mouth once daily. fluticasone (FLONASE) 50 mcg/actuation nasal spray Use 1 [place] in each nostril once daily. econazole (SPECTAZOLE) 1 % cream Apply to affected area once daily. to L fifth toe leucovorin (LEUCOVORIN) 15 mg tablet Take 15 mg by mouth once daily. HUMIRA PEN 40 mg/0.8 mL pnkt Inject 40 mg subcutaneously. Every other week. methotrexate 2.5 mg tablet Take 2.5 mg by mouth every Sunday. PT takes 8 tabs every Sunday Cholecalciferol, Vitamin D3, 1,000 unit ORAL Cap Take 1 capsule by mouth once daily. omega-3 fatty acids/vitamin e(FISH OIL 1,000 MG CAP) Take one(1) capsule daily. FOLIC ACID 1 MG TAB Take 2 tablets once daily THERAPEUTIC MULTIVITAMIN TAB Take one(1) tablet daily. EKG performed today demonstrates sinus rhythm at 71 bpm with biatrial enlargement but is otherwise normal. William Ambriz DO, FACC, FACOI Clinical and Preventive Cardiology Department of Medicine and Division of Cardiology, [facility] Gas Pump Attendantstereoplotter operator [facility] Gas Pump Attendant of Congestive Heart Failure Clinic [facility] Cardiology Office Gas Pump Attendant [facility] Staff Television Operator, Les Pierce Department of Cardiovascular Medicine/Heart and Vascular [place], [facility] Clinical Forensic Investigator Profressor of Medicine, [facility] of Medicine [facility] Please note: This note has been produced using speech recognition software and may contain errors related to that system including madelyn, punctuation, spelling, words, gender and phrases that may be inappropriate. documented in this encounter [facility] 07-29-2021 Miscellaneous Notes Pharmacy faxed requesting the following refill. Pending Prescriptions Disp Refills SYMBICORT 160 MCG-4.5 MCG/ACTUATION HFA AEROSOL INHALER 30.6 g 4 Sig: USE 2 INHALATIONS TWICE A DAY INSTRUCTED YULIANA: Yes Patient last appointment: [address] [place] [address] Andujar Patient Phone numbers: [phone] (home) Request is for script(s) to be escript to pharmacy. Nahomy Mercado documented in this encounter [facility] 07-25-2021 History of Presen t illness Narrative pcp agrees with information patient had inr completed at [facility] patients inr is 1.8 (patients inr range is 2.0-3.0) patient is currently taking 5mg Mon,Wed,Fri and 7.5mg all other days) patients last dose change was on 02/24/21 due to a high level of 3.2 (dose at that time was 7.5mg daily) patient has had no changes in medication and no missed doses and no change in diet Advised patient to continue on the same dose(s) and that they would only be contacted regarding dosage and follow up instructions after review with provider, if a change is needed. Written instructions given and patient verbalized understanding. Presently scheduled in 4 weeks (08/23/21) for follow up INR. documented in this encounter [facility] 07-11-2021 History of Presen t illness Narrative This note was created using AirPOSter. Subjective Haydee Bustamante is a 76 year old female. Patient presents with: Follow Up SUBJECTIVE: Haydee Bustamante is a 76 year old year old lady here today for 4 month follow up appointment for review of medical conditions. Noted lesion on lef that has gotten larger since last year. Wants removed. Had wart on hand that had cauterized in the past. Noted that iron was meant to discuss last time, not calcium. Did not get dark green one but got iron gluconate 27mg currently taking 2 every other day. Postponing toe surgery for now--has show. 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 Noted fell when missed top step. Excoriations on hands and scraped right soto--healing okay. PAST MEDICAL HISTORY Diagnosis Date Blood dyscrasia Disseminated histoplasmosis Colitis, immunosuppression, 01/2018. 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 Hurley ([facility]) Unspecified hemorrhoids without mention of complication Hemorrhoids Current Outpatient Medications Medication Sig albuterol HFA (PROAIR HFA) 90 mcg/actuation inhaler Inhale 2 Puffs as instructed every 4 hours as needed. potassium chloride ER (KLOR-CON M20) 20 mEq tablet Take 1 tablet by mouth twice daily. naproxen (NAPROSYN) 500 mg tablet Take 1 tablet by mouth twice daily as needed. Take with food warfarin (COUMADIN) 5 mg tablet Take 7.5 mg , Sun, Sun, Sun, Sun; and 5 mg on Sunday and Sunday. tiotropium bromide (SPIRIVA RESPIMAT) 2.5 mcg/actuation inhaler Inhale 2 Puffs as instructed once daily. Inhale two puffs once daily. gabapentin (NEURONTIN) 300 mg capsule Take 1 capsule by mouth twice daily. Irbesartan-hydroCHLOROthiazide 150-12.5 mg per tablet Take 1 tablet by mouth once daily. SYMBICORT 160-4.5 mcg/actuation inhaler USE 2 INHALATIONS TWICE A DAY INSTRUCTED pantoprazole DR (PROTONIX) 40 mg tablet Take 1 tablet by mouth once daily. fluticasone (FLONASE) 50 mcg/actuation nasal spray Use 1 [place] in each nostril once daily. econazole (SPECTAZOLE) 1 % cream Apply to affected area once daily. to L fifth toe leucovorin (LEUCOVORIN) 15 mg tablet Take 15 mg by mouth once daily. HUMIRA PEN 40 mg/0.8 mL pnkt Inject 40 mg subcutaneously. Every other week. methotrexate 2.5 mg tablet Take 2.5 mg by mouth every Sunday. PT takes 8 tabs every Sunday Cholecalciferol, Vitamin D3, 1,000 unit ORAL Cap Take 1 capsule by mouth once daily. omega-3 fatty acids/vitamin e(FISH OIL 1,000 MG CAP) Take one(1) capsule daily. FOLIC ACID 1 MG TAB Take 2 tablets once daily (Patient taking differently: Take 1 tablet by mouth once daily except on Sat.) THERAPEUTIC MULTIVITAMIN TAB Take one(1) tablet daily. Current Facility-Administered Medications Medication Dose Route Frequency perflutren lipid microspheres 1.3 mL in NaCl (PF) 0.9% 10 mL injection (DEFINITY) INTRAVENOUS DIRECTED PRN sodium chloride 0.9 % (flush) 10 mL (BD POSIFLUSH) 10 mL INTRAVENOUS DIRECTED PRN Review of Systems Objective BP 122/74 Pulse 76 Wt 58.1 kg (128 lb) BMI 21.97 kg/m Physical Exam Constitutional: Appearance: Normal appearance. HENT: Head: Normocephalic. Eyes: Conjunctiva/sclera: Conjunctivae normal. Cardiovascular: Rate and Rhythm: Normal rate and regular rhythm. Heart sounds: Normal heart sounds. Pulmonary: Effort: Pulmonary effort is normal. Breath sounds: Normal breath sounds. Skin: General: Skin is warm and dry. Comments: Rough warty type lesion right leg near popliteal fossa on lateral side. Snags on things and thinks unsightly. Neurological: General: No focal deficit present. Mental Status: She is alert and oriented to person, place, and time. Psychiatric: Mood and Affect: Mood normal. Behavior: Behavior normal. Thought Content: Thought content normal. Judgment: Judgment normal. Component Latest Ref Rng & Units 05/18/2020 07/07/2020 07/07/2020 07/07/2021 9:05 AM 9:07 AM WBC 3.70 - 11.00 k/uL 7.47 5.61 RBC 3.90 - 5.20 m/uL 4.04 3.72 (L) Hemoglobin 11.5 - 15.5 g/dL 12.9 11.9 Hematocrit 36.0 - 46.0 % 39.7 36.7 MCV 80.0 - 100.0 fL 98.3 98.7 MCH 26.0 - 34.0 pG 31.9 32.0 MCHC 30.5 - 36.0 g/dL 32.5 32.4 RDW-CV 11.5 - 15.0 % 14.7 14.6 Platelet Count 150 - 400 k/uL 278 242 MPV 9.0 - 12.7 fL 11.2 11.5 Neut% % 66.6 Abs Neut (ANC) 1.45 - 7.50 k/uL 4.96 Lymph% % 22.0 Abs Lymph 1.00 - 4.00 k/uL 1.64 [place]% % 8.0 Abs [place] <0.87 k/uL 0.60 Eosin% % 2.7 Abs Eosin <0.46 k/uL 0.20 Baso% % 0.7 Abs Baso <0.11 k/uL 0.05 Nucleated Reds 0 /100 WBC 0.0 Absolute nRBC <0.01 k/uL <0.01 <0.01 Diff Type Auto Diff Glucose 74 - 99 mg/dL 76 BUN 7 - 21 mg/dL 22 (H) Creatinine 0.58 - 0.96 mg/dL 0.77 0.77 Sodium 136 - 144 mmol/L 135 (L) Potassium 3.7 - 5.1 mmol/L 4.0 Chloride 97 - 105 mmol/L 98 CO2 22 - 30 mmol/L 27 Anion Gap 9 - 18 mmol/L 10 Calcium 8.5 - 10.2 mg/dL 9.2 9.1 eGFR- >60 >60 eGFR-All Other Races . >60 >60 Cholesterol, Total <200 mg/dL 184 Triglyceride <150 mg/dL 50 HDL Cholesterol >39 mg/dL 64 Non HDL Cholesterol <130 mg/dL 120 Fasting Time hrs 12 VLDL Cholesterol <30 mg/dL 10 TC:HDL Ratio <5.10 2.88 LDL Cholesterol <100 mg/dL 110 (H) LDL:HDL Ratio <2.54 1.72 Magnesium 1.7 - 2.3 mg/dL 1.8 PT INR 1.7 The 10-year ASCVD risk score ([place] JULIO Jr., et al., 2013) is: 17.2% Values used to calculate the score: Age: 76 years Sex: Female Is Non- : No Diabetic: No Tobacco smoker: No Systolic Blood Pressure: 122 mmHg Is BP treated: Yes HDL Cholesterol: 64 mg/dL Total Cholesterol: 184 mg/dL June labs for Dr. Hurley showed Hg 12.4, Hct 36.4, normal indices, RBC 3.8 Assessment and Plan ASSESSMENT/PLAN: 1. Gastroesophageal reflux disease without esophagitis - ICD9: 530.81, ICD10: K21.9 (primary diagnosis) - Continue present management. - PANTOPRAZOLE 40 MG TABLET,DELAYED RELEASE 2. Other viral warts - ICD9: 078.19, ICD10: B07.8 Liquid Nitrogen used to freeze wart with her permission. Discussed will blister. May need to treat again. Further evaluation and treatment as indicated. 3. Elevated LDL cholesterol level - ICD9: 272.0, ICD10: E78.00 Discussed ASCVD 10 year risk and recommendations. 4. Essential hypertension - ICD9: 401.9, ICD10: I10 - good control - Continue current medication(s) - Recommended regular aerobic exercise. - Recommend home blood pressure monitoring, to bring results in on next visit - Goal of BP <130/80 5. Need for COVID-19 vaccine - ICD9: V04.89, ICD10: Z23 - PFIZER-BIONTFlowCardia COVID-19 VACCINE, AGE 12+ YR (ARIAS TOP) 6. COPD without exacerbation (HCC) - ICD9: 496, ICD10: J44.9 Continue present management. Discussed Dr. Andujar's instructions to use albuterol before activity that causes coughing 7. Bronchiectasis without complication (HCC) - ICD9: 494.0, ICD10: J47.9 As noted above. Fall discussed. Arthritis discussed. Claudine Durán MD documented in this encounter [facility] 06-30-2021 History of Presen t illness Narrative [facility] CDM Engagement Provider Action/FYI: Spk with Pt she denies new or worsening COPD symptoms or needs. Pt plans to have her Covid Booster at upcoming Appt with 07/11/21 Contact Made with Patient: Yes Patient identified by name and . Discussed care with patient Shante venegas name is Katarzyna Malcolm, RN your Pizza Driver from Claudine Durán MD office at the [facility]. I am reaching out today because I noticed it has been a few weeks since I have seen any responses from you on your questionnaire. I wanted to check on you and make sure you are doing well, and to remind you that your Claudine Durán MD recommended this program for you so that you can stay better connected to your health. I will be monitoring your responses on the questionnaire to make sure we are not seeing any changes in your health that your Primary Care Physician needs to know about, or looking for improvements and keeping Claudine Durán MD informed about it all. You and I will check in together anytime a problem arises, and determine a solution. I am here to help you stay healthy, and stay connected to your doctor's office. How can I help you in this program? The patient informs that she forgot. Please take some time today to answer the questionnaire. I am looking forward to receiving your answers. If I do not receive your answers in the next 2 business days I will check back in. ---END CALL Katarzyna Malcolm RN June 30, 2021 2:03 PM [facility] Engagement Provider Action/FYI: Call to Pt left a message to verify COPD symptom status and needs. Contact Made with Patient: No, first attempt, left message. Shante Bustamante. This is Katarzyna Malcolm RN your Pizza Driver from the [facility]. I am calling to check in with you concerning the MyChart questionnaire you have been receiving from me. I will call you again tomorrow and am looking forward to speaking with you. (Pizza Driver enters next day in next patient outreach ) Katarzyna Malcolm RN June 29, 2021 3:31 PM documented in this encounter [facility] 06-09-2021 History of Presen t illness Narrative per instruction librarian provider dr garza patient is to continue same dose PATIENT NOTIFIED OF INFORMATION patient had inr completed at [facility] patients inr is 1.6 (patients inr range is 1.7-2.2) patient is currently taking 5mg Mon,Wed,Fri and 7.5mg all other days patients last dose change was on 02/24/21 due to a high level of 3.2 (dose at that time was 7.5mg daily) patient has had no changes in medication and no missed doses and no change in diet Advised patient to continue on the same dose(s) and that they would only be contacted regarding dosage and follow up instructions after review with provider, if a change is needed. Written instructions given and patient verbalized understanding. Presently scheduled in 4 weeks (07/07/21 - via blood drawl) for follow up INR. documented in this encounter [facility] 06-06-2021 Miscellaneous Notes GEREMIAS: 03/14/2021 Last refill: 05/12/2019 QTY: 1 Refills: 2 Patient's request for medication is as follows: Pending Prescriptions Disp Refills ALBUTEROL SULFATE HFA 90 MCG/ACTUATION AEROSOL INHALER 1 Inhaler 2 Sig: Inhale 2 Puffs as instructed every 4 hours as needed. YULIANA: No Please approve the above prescription(s) to electronically send to pharmacy. Sergey Ramirez Ma documented in this encounter [facility] 2021 Instructions Julio Andujar MD - 2021 3:44 PM EDT MEDICAL DECISION MAKIN. Bronchiectasis, recovered fro m 04/2021 exacerbation with Levaquin. - No change in Spiriva daily and Symbicort two times daily. - Albuterol HFA inhaler, 2 inhalations 10 15 minutes prior to activities associated with shortness of breath, and as needed for rescue relief of shortness of breath or wheezing, up to 4 times daily. - Covid, 2020 annual Influenza vaccination and Pneumococcal vaccination are consistent with CDC vaccination recommendations. - I have provided Rx for Levofloxacin 500 mg daily for 7 days, to have on hand in case of future exacerbation. - While on Levofloxacin, reduce Warfarin to 5 mg daily. Resume usual schedule the day after the last dose of Levofloxacin. -Reassess in 6 months, sooner if needed. 2. I am retiring from the staff of [facility] and the practice of Medicine on August 18, 2021, after 41 years of service to my patients. It has been my privilege to provide you with Pulmonary consultation and care for the time we have known each other. Please feel confident that my colleagues are well equipped to provide ongoing care in the future: Chito Terry MD and Johanna Benites PA-C. documented in this encounter [facility] 2021 History of Presen t illness Narrative [facility] [place], 2021: Name: Haydee Bustamante : 1945 INTERVAL HISTORY: The patient is here for follow up of bronchiectasis and emphysema. Since the 11/29/2020 Pulmonary Clinic visit, the patient has not required ED care or hospital admission for exacerbation. Claims to be consistently compliant with prescribed maintenance daily Spiriva and twice daily Symbicort. She has increased her rescue bronchodilator use, due to an increased cough and sputum over the course of the last several weeks to few months. This cough is associated with nasty sputum of increased volume and purulence. There has been no pleuritic chest pain, fever or hemoptysis. This increased cough and sputum has been associated with a bit more than usual wheezing and exertional dyspnea. Problem list, PMH, PSH, FAMH, SOCH: Reviewed with patient today, and updated accordingly. Immunizations reviewed today. Allergies reviewed and updated, and medications reconciled today. PHYSICAL EXAMINATION: .BP 144/67 Pulse 98 Resp 14 Ht 162.6 cm (5' 4 ) Wt 58.3 kg (128 lb 9.6 oz) SpO2 99% BMI 22.07 kg/m Gen: No acute distress. Cooperative with examination. ENT: Oral hygeine and dentition good. Pharynx clear. No halitosis. Resp: No stridor, accessory respiratory muscle use, supra-sternal or intercostal retractions. No wheezes, crackles. CV: Regular rythm. Heart tones normal. No carotid bruit. Radial pulses normal. Abd: Not distended. MSK: No kyphoscoliosis. Ext: Warm and well perfused. No clubbing, cyanosis, edema. Skin: No rash, ecchymoses. Neuro: Mental status normal. Affect normal. No tremor. DATA REVIEW: PFT 11/29/2020: Pred LLN ULN Actual %Pred FVC (L) 2.85 2.06 3.69 2.14 75 FEV1 (L) 2.19 1.58 2.78 1.41 64 FEV1/FVC (%) 0.78 64 89 0.66 84 RV (Pleth) (L) 2.30 1.54 3.06 2.31 100 TLC (Pleth) (L) 5.20 4.13 6.28 4.42 85 RV/TLC (Pleth) (%) 45 34 56 52 117 PFT 11/28/2019: Pre-Bronch Pred LLN ULN Actual %Pred FVC (L) 2.89 2.09 3.72 2.32 80 FEV1 (L) 2.22 1.61 2.82 1.62 72 FEV1/FVC (%) 78 64 89 0.70 89 PFT 04/03/2019: Pre-Bronch Post-Bronch Pred LLN ULN Actual %Pred Actual %Chng FVC (L) 2.89 2.07 3.71 2.06 71 2.17 5 FEV1 (L) 2.23 1.62 2.84 1.27 56 1.51 18 FEV1/FVC (%) 78 65 91 0.62 0.69 12 MEDICAL DECISION MAKIN. Bronchiectasis, recovered fro m 04/2021 exacerbation with Levaquin. - No change in Spiriva daily and Symbicort two times daily. - Albuterol HFA inhaler, 2 inhalations 10 15 minutes prior to activities associated with shortness of breath, and as needed for rescue relief of shortness of breath or wheezing, up to 4 times daily. - Covid, 2020 annual Influenza vaccination and Pneumococcal vaccination are consistent with CDC vaccination recommendations. - I have provided Rx for Levofloxacin 500 mg daily for 7 days, to have on hand in case of future exacerbation. - While on Levofloxacin, reduce Warfarin to 5 mg daily. Resume usual schedule the day after the last dose of Levofloxacin. -Reassess in 6 months, sooner if needed. Julio Andujar MD, [facility] [place] [facility] [address] [place] [id number] P: [phone] F: [phone] [email or web address] documented in this encounter [facility] 05-26-2021 History of Presen t illness Narrative instruction librarian provider agrees with information patient had inr completed at [facility] patients inr is 1.6 (patients inr range is 1.7-2.2) patient is currently taking 5mg Mon,Wed,Fri and 7.5mg all other days patients last dose change was on 02/24/21 due to a high level of 3.2 (dose at that time was 7.5mg daily) patient has had no changes in medication and no missed doses and no change in diet Advised patient to continue on the same dose(s) and that they would only be contacted regarding dosage and follow up instructions after review with provider, if a change is needed. Written instructions given and patient verbalized understanding. Presently scheduled in 2 weeks (06/09/21) for follow up INR since level is just slightly low documented in this encounter [facility] 05-20-2021 History of Presen t illness Narrative POPULATION HEALTH NAVIGATION OUTREACH Action/FYI: [employer] Care Gaps Discuss/Due: Advance Directives, Screening Mammogram due 06/02/21 or after Outcome: Patient Declined Scheduling Pt identified by name and : YES, via phone Outreach Outcome/Action Spoke to patient or caregiver: Patient declined Reason for Outreach Care Gap or Scheduling/Wellness visits Payer: Payor: [employer]ARE / Plan: [employer] MEDICARE PPO / Product Type: PPO / Care Gap Reviewed:: Breast Cancer screening Reminder: Reminder note to check Health Maintenance for items below Health Maintenance items due: LIPID SCREEN due on 12/27/2020 COVID-19 VACCINE(4 - Booster for Pfizer series) due on 02/08/2021 ADVANCE DIRECTIVE DISCUSSION Never done MAMMOGRAM due on 06/01/2021 Message Sent to Practice: No Navigation Signature: Nara Dill May 20, 2021 2:45 PM documented in this encounter [facility] 03-14-2021 History of Presen t illness Narrative This note was created using AirPOSter. Subjective Haydee Bustamante is a 75 year old female. Patient presents with: Established Patient: 4 month f ollow up- covid 02/06/21 SUBJECTIVE: Haydee Bustamante is a 75 year old year old lady here today for 4 month follow up appointment for review of medical conditions. Still has cough that come and goes. Reviewed COVID infection in January.Recovered well. Calcium citrate was what had been taking. Now something else [facility] gave instead even though brought the old bottle. 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 Doing better with vocal exercises. Chronic cough and mucus issues noted. Continues to follow up with Dr. Ambriz. PAST MEDICAL HISTORY Diagnosis Date Blood dyscrasia Disseminated histoplasmosis Colitis, immunosuppression, 01/2018. 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 Hurley ([facility]) Unspecified hemorrhoids without mention of complication Hemorrhoids Current Outpatient Medications Medication Sig warfarin (COUMADIN) 5 mg tablet Take 7.5 mg , Sun, Sun, Sun, Sun; and 5 mg on Sunday and Sunday. tiotropium bromide (SPIRIVA RESPIMAT) 2.5 mcg/actuation inhaler Inhale 2 Puffs as instructed once daily. Inhale two puffs once daily. gabapentin (NEURONTIN) 300 mg capsule Take 1 capsule by mouth twice daily. Irbesartan-hydroCHLOROthiazide 150-12.5 mg per tablet Take 1 tablet by mouth once daily. naproxen (NAPROSYN) 500 mg tablet Take 1 tablet by mouth twice daily as needed. Take with food SYMBICORT 160-4.5 mcg/actuation inhaler USE 2 INHALATIONS TWICE A DAY INSTRUCTED pantoprazole DR (PROTONIX) 40 mg tablet Take 1 tablet by mouth once daily. fluticasone (FLONASE) 50 mcg/actuation nasal spray Use 1 [place] in each nostril once daily. potassium chloride ER (KLOR-CON M20) 20 mEq tablet Take 1 tablet by mouth twice daily. albuterol HFA (PROAIR HFA) 90 mcg/actuation inhaler Inhale 2 Puffs as instructed every 4 hours as needed. econazole (SPECTAZOLE) 1 % cream Apply to affected area once daily. to L fifth toe leucovorin (LEUCOVORIN) 15 mg tablet Take 15 mg by mouth once daily. HUMIRA PEN 40 mg/0.8 mL pnkt Inject 40 mg subcutaneously. Every other week. methotrexate 2.5 mg tablet Take 2.5 mg by mouth every Sunday. PT takes 8 tabs every Sunday Cholecalciferol, Vitamin D3, 1,000 unit ORAL Cap Take 1 capsule by mouth once daily. omega-3 fatty acids/vitamin e(FISH OIL 1,000 MG CAP) Take one(1) capsule daily. FOLIC ACID 1 MG TAB Take 2 tablets once daily (Patient taking differently: Take 1 tablet by mouth once daily except on Sat.) THERAPEUTIC MULTIVITAMIN TAB Take one(1) tablet daily. Current Facility-Administered Medications Medication Dose Route Frequency perflutren lipid microspheres 1.3 mL in NaCl (PF) 0.9% 10 mL injection (DEFINITY) INTRAVENOUS DIRECTED PRN sodium chloride 0.9 % (flush) 10 mL (BD POSIFLUSH) 10 mL INTRAVENOUS DIRECTED PRN Review of Systems Objective BP 118/62 (BP Site: Left Arm, BP Position: Sitting, BP Cuff Size: Regular Adult) Pulse 87 Temp 36.4 C (97.5 F) Resp 14 Ht 162.6 cm (5' 4 ) Wt 58.1 kg (128 lb) SpO2 99% BMI 21.97 kg/m Last 5 Encounter BP Readings: Date: BP: 03/14/2021 118/62 11/29/2020 118/60 11/09/2020 112/68 10/27/2020 128/69 08/20/2020 130/70 Last 5 Encounter Wt Readings: Date: Wt: 03/14/2021 58.1 kg (128 lb) 11/29/2020 58.5 kg (129 lb) 11/09/2020 57.6 kg (127 lb) 08/20/2020 60 kg (132 lb 3.2 oz) 07/14/2020 57.6 kg (127 lb) Physical Exam Constitutional: Appearance: Normal appearance. HENT: Head: Normocephalic. Eyes: Conjunctiva/sclera: Conjunctivae normal. Cardiovascular: Rate and Rhythm: Normal rate and regular rhythm. Heart sounds: Murmur heard. Systolic murmur is present with a grade of 3/6. Pulmonary: Effort: Pulmonary effort is normal. Breath sounds: Normal breath sounds. Skin: General: Skin is warm and dry. Neurological: General: No focal deficit present. Mental Status: She is alert and oriented to person, place, and time. Psychiatric: Mood and Affect: Mood normal. Behavior: Behavior normal. Thought Content: Thought content normal. Judgment: Judgment normal. Reviewed prior labs. Assessment and Plan Encounter Diagnosis ICD-10-CM 1. Essential hypertension I10 LIPID PANEL BASIC 2. History of COVID-19 Z86.16 3. Cough R05.9 4. Bronchiectasis without complication (HCC) J47.9 5. Gastroesophageal reflux disease without esophagitis K21.9 6. Aortic stenosis with bicuspid valve Q23.0 Q23.1 7. 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 rheumatoid factor (HCC) M05.79 ASSESSMENT/PLAN: 1. Essential hypertension - ICD9: 401.9, ICD10: I10 (primary diagnosis) - good control - Follows with Dr. Ambriz ([facility] cardiology) - Continue current medication(s) - Recommended regular aerobic exercise. - Recommend home blood pressure monitoring, to bring results in on next visit - Goal of BP <130/80 - LIPID PANEL BASIC 2. History of COVID-19 - ICD9: V12.09, ICD10: Z86.03 February 2021. Recovered well. Doing well. 3. Cough - ICD9: 786.2, ICD10: R05.9 4. Bronchiectasis without complication (HCC) - ICD9: 494.0, ICD10: J47.9 Continue present management. 5. Gastroesophageal reflux disease without esophagitis - ICD9: 530.81, ICD10: K21.9 - Continue present management. 6. Aortic stenosis with bicuspid valve - ICD9: 746.3, 746.4, ICD10: Q23.0, Q23.1 Continue follow up with Dr. Ambriz 7. 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 rheumatoid factor (HCC) - ICD9: 714.0, ICD10: M05.79 Stable on meds through [facility]--Dr. Hurley Gets labs through his office. Lipid ordered. I spent a total of at least 30 minutes on the date of the service which included [id number] patient care, completing clinical documentation, obtaining and/or reviewing separately obtained history, performing a medically appropriate examination, counseling and educating the patient/family/caregiver and ordering medications, tests, or procedures. Claudine Durán MD documented in this encounter [facility] documented as of this encounter (statuses as of 05/20/2021) [facility] History of Past illness Narrative* Problem Noted Date Resolved Date Murmur 03/08/2018 08/05/2018 Anemia 03/08/2018 04/26/2018 DVT, recurrent, lower extremity, acute 5 03/03/2018 Overview: Remote history of DVT S/P IVC filter On Warfarin 5 mg TTSS, 7.5 mg MWF Right sided sciatica 03/20/2011 03/30/2014 Hypertension 04/13/2010 03/07/2015 Rheumatoid arthritis 04/01/2009 03/07/2015 Pain in joint, lower leg 10/18/2006 019 documented as of this encounter (statuses as of 05/22/2021) [facility] History of Past illness Narrative* Problem Noted Date Resolved Date Murmur 03/08/2018 08/05/2018 Anemia 03/08/2018 04/26/2018 DVT, recurrent, lower extremity, acute 5 03/03/2018 Overview: Remote history of DVT S/P IVC filter On Warfarin 5 mg TTSS, 7.5 mg MWF Right sided sciatica 03/20/2011 03/30/2014 Hypertension 04/13/2010 03/07/2015 Rheumatoid arthritis 04/01/2009 03/07/2015 Pain in joint, lower leg 10/18/2006 019 documented as of this encounter (statuses as of 05/26/2021) [facility] History of Past illness Narrative* Problem Noted Date Resolved Date Murmur 03/08/2018 08/05/2018 Anemia 03/08/2018 04/26/2018 DVT, recurrent, lower extremity, acute 5 03/03/2018 Overview: Remote history of DVT S/P IVC filter On Warfarin 5 mg TTSS, 7.5 mg MWF Right sided sciatica 03/20/2011 03/30/2014 Hypertension 04/13/2010 03/07/2015 Rheumatoid arthritis 04/01/2009 03/07/2015 Pain in joint, lower leg 10/18/2006 019 documented as of this encounter (statuses as of 06/06/2021) [facility] of Past illness Narrative* Problem Noted Date Resolved Date Murmur 03/08/2018 08/05/2018 Anemia 03/08/2018 04/26/2018 DVT, recurrent, lower extremity, acute 5 03/03/2018 Overview: Remote history of DVT S/P IVC filter On Warfarin 5 mg TTSS, 7.5 mg MWF Right sided sciatica 03/20/2011 03/30/2014 Hypertension 04/13/2010 03/07/2015 Rheumatoid arthritis 04/01/2009 03/07/2015 Pain in joint, lower leg 10/18/2006 019 documented as of this encounter (statuses as of 06/09/2021) [facility] of Past illness Narrative* Problem Noted Date Resolved Date Murmur 03/08/2018 08/05/2018 Anemia 03/08/2018 04/26/2018 DVT, recurrent, lower extremity, acute 5 03/03/2018 Overview: Remote history of DVT S/P IVC filter On Warfarin 5 mg TTSS, 7.5 mg MWF Right sided sciatica 03/20/2011 03/30/2014 Hypertension 04/13/2010 03/07/2015 Rheumatoid arthritis 04/01/2009 03/07/2015 Pain in joint, lower leg 10/18/2006 019 documented as of this encounter (statuses as of 06/30/2021) [facility] of Past illness Narrative* Problem Noted Date Resolved Date Murmur 03/08/2018 08/05/2018 Anemia 03/08/2018 04/26/2018 DVT, recurrent, lower extremity, acute 5 03/03/2018 Overview: Remote history of DVT S/P IVC filter On Warfarin 5 mg TTSS, 7.5 mg MWF Right sided sciatica 03/20/2011 03/30/2014 Hypertension 04/13/2010 03/07/2015 Rheumatoid arthritis 04/01/2009 03/07/2015 Enthesopathy of hip region 01/04/200907/07 Embolism and thrombosis 11/23/2006 07/08/19 22 Pain in joint, lower leg 10/18/2006 019 documented as of this encounter (statuses as of 07/25/2021) [facility] of Past illness Narrative* Problem Noted Date Resolved Date Murmur 03/08/2018 08/05/2018 Anemia 03/08/2018 04/26/2018 DVT, recurrent, lower extremity, acute 5 03/03/2018 Overview: Remote history of DVT S/P IVC filter On Warfarin 5 mg TTSS, 7.5 mg MWF Right sided sciatica 03/20/2011 03/30/2014 Hypertension 04/13/2010 03/07/2015 Rheumatoid arthritis 04/01/2009 03/07/2015 Enthesopathy of hip region 01/04/200907/07 Embolism and thrombosis 11/23/2006 07/08/19 22 Pain in joint, lower leg 10/18/2006 019 documented as of this encounter (statuses as of 08/01/2021) [facility] History of Past illness Narrative* Problem Noted Date Resolved Date Murmur 03/08/2018 08/05/2018 Anemia 03/08/2018 04/26/2018 DVT, recurrent, lower extremity, acute 5 03/03/2018 Overview: Remote history of DVT S/P IVC filter On Warfarin 5 mg TTSS, 7.5 mg MWF Right sided sciatica 03/20/2011 03/30/2014 Hypertension 04/13/2010 03/07/2015 Rheumatoid arthritis 04/01/2009 03/07/2015 Enthesopathy of hip region 01/04/200907/07 Embolism and thrombosis 11/23/2006 07/08/19 22 Pain in joint, lower leg 10/18/2006 019 documented as of this encounter (statuses as of 08/12/2021) [facility] History of Past illness Narrative* Problem Noted Date Resolved Date Murmur 03/08/2018 08/05/2018 Anemia 03/08/2018 04/26/2018 DVT, recurrent, lower extremity, acute 5 03/03/2018 Overview: Remote history of DVT S/P IVC filter On Warfarin 5 mg TTSS, 7.5 mg MWF Right sided sciatica 03/20/2011 03/30/2014 Hypertension 04/13/2010 03/07/2015 Rheumatoid arthritis 04/01/2009 03/07/2015 Enthesopathy of hip region 01/04/200907/07 Embolism and thrombosis 11/23/2006 07/08/19 22 Pain in joint, lower leg 10/18/2006 019 documented as of this encounter (statuses as of 08/23/2021) [facility] History of Past illness Narrative* Problem Noted Date Resolved Date Murmur 03/08/2018 08/05/2018 Anemia 03/08/2018 04/26/2018 DVT, recurrent, lower extremity, acute 5 03/03/2018 Overview: Remote history of DVT S/P IVC filter On Warfarin 5 mg TTSS, 7.5 mg MWF Right sided sciatica 03/20/2011 03/30/2014 Hypertension 04/13/2010 03/07/2015 Rheumatoid arthritis 04/01/2009 03/07/2015 Enthesopathy of hip region 01/04/200907/07 Embolism and thrombosis 11/23/2006 07/08/19 22 Pain in joint, lower leg 10/18/2006 019 documented as of this encounter (statuses as of 09/06/2021) [facility] History of Past illness Narrative* Problem Noted Date Resolved Date Murmur 03/08/2018 08/05/2018 Anemia 03/08/2018 04/26/2018 DVT, recurrent, lower extremity, acute 5 03/03/2018 Overview: Remote history of DVT S/P IVC filter On Warfarin 5 mg TTSS, 7.5 mg MWF Right sided sciatica 03/20/2011 03/30/2014 Hypertension 04/13/2010 03/07/2015 Rheumatoid arthritis 04/01/2009 03/07/2015 Enthesopathy of hip region 01/04/200907/07 Embolism and thrombosis 11/23/2006 07/08/19 22 Pain in joint, lower leg 10/18/2006 019 documented as of this encounter (statuses as of 09/06/2021) [facility] History of Past illness Narrative* Problem Noted Date Resolved Date Murmur 03/08/2018 08/05/2018 Anemia 03/08/2018 04/26/2018 DVT, recurrent, lower extremity, acute 5 03/03/2018 Overview: Remote history of DVT S/P IVC filter On Warfarin 5 mg TTSS, 7.5 mg MWF Right sided sciatica 03/20/2011 03/30/2014 Hypertension 04/13/2010 03/07/2015 Rheumatoid arthritis 04/01/2009 03/07/2015 Enthesopathy of hip region 01/04/200907/07 Embolism and thrombosis 11/23/2006 07/08/19 22 Pain in joint, lower leg 10/18/2006 019 documented as of this encounter (statuses as of 09/07/2021) [facility] History of Past illness Narrative* Problem Noted Date Resolved Date Murmur 03/08/2018 08/05/2018 Anemia 03/08/2018 04/26/2018 DVT, recurrent, lower extremity, acute 5 03/03/2018 Overview: Remote history of DVT S/P IVC filter On Warfarin 5 mg TTSS, 7.5 mg MWF Right sided sciatica 03/20/2011 03/30/2014 Hypertension 04/13/2010 03/07/2015 Rheumatoid arthritis 04/01/2009 03/07/2015 Enthesopathy of hip region 01/04/200907/07 Embolism and thrombosis 11/23/2006 07/08/19 22 Pain in joint, lower leg 10/18/2006 019 documented as of this encounter (statuses as of 09/20/2021) [facility] History of Past illness Narrative* Problem Noted Date Resolved Date Murmur 03/08/2018 08/05/2018 Anemia 03/08/2018 04/26/2018 DVT, recurrent, lower extremity, acute 5 03/03/2018 Overview: Remote history of DVT S/P IVC filter On Warfarin 5 mg TTSS, 7.5 mg MWF Right sided sciatica 03/20/2011 03/30/2014 Hypertension 04/13/2010 03/07/2015 Rheumatoid arthritis 04/01/2009 03/07/2015 Enthesopathy of hip region 01/04/200907/07 Embolism and thrombosis 11/23/2006 07/08/19 22 Pain in joint, lower leg 10/18/2006 019 documented as of this encounter (statuses as of 09/29/2021) [facility] History of Past illness Narrative* Problem Noted Date Resolved Date Murmur 03/08/2018 08/05/2018 Anemia 03/08/2018 04/26/2018 DVT, recurrent, lower extremity, acute 5 03/03/2018 Overview: Remote history of DVT S/P IVC filter On Warfarin 5 mg TTSS, 7.5 mg MWF Right sided sciatica 03/20/2011 03/30/2014 Hypertension 04/13/2010 03/07/2015 Rheumatoid arthritis 04/01/2009 03/07/2015 Enthesopathy of hip region 01/04/200907/07 Embolism and thrombosis 11/23/2006 07/08/19 22 Pain in joint, lower leg 10/18/2006 019 documented as of this encounter (statuses as of 10/13/2021) [facility] History of Past illness Narrative* Problem Noted Date Resolved Date Murmur 03/08/2018 08/05/2018 Anemia 03/08/2018 04/26/2018 DVT, recurrent, lower extremity, acute 5 03/03/2018 Overview: Remote history of DVT S/P IVC filter On Warfarin 5 mg TTSS, 7.5 mg MWF Right sided sciatica 03/20/2011 03/30/2014 Hypertension 04/13/2010 03/07/2015 Rheumatoid arthritis 04/01/2009 03/07/2015 Enthesopathy of hip region 01/04/200907/07 Embolism and thrombosis 11/23/2006 07/08/19 22 Pain in joint, lower leg 10/18/2006 019 documented as of this encounter (statuses as of 10/13/2021) [facility] History of Past illness Narrative* Problem Noted Date Resolved Date Murmur 03/08/2018 08/05/2018 Anemia 03/08/2018 04/26/2018 DVT, recurrent, lower extremity, acute 5 03/03/2018 Overview: Remote history of DVT S/P IVC filter On Warfarin 5 mg TTSS, 7.5 mg MWF Right sided sciatica 03/20/2011 03/30/2014 Hypertension 04/13/2010 03/07/2015 Rheumatoid arthritis 04/01/2009 03/07/2015 Enthesopathy of hip region 01/04/200907/07 Embolism and thrombosis 11/23/2006 07/08/19 22 Pain in joint, lower leg 10/18/2006 019 documented as of this encounter (statuses as of 10/18/2021) [facility] History of Past illness Narrative* Problem Noted Date Resolved Date Murmur 03/08/2018 08/05/2018 Anemia 03/08/2018 04/26/2018 DVT, recurrent, lower extremity, acute 5 03/03/2018 Overview: Remote history of DVT S/P IVC filter On Warfarin 5 mg TTSS, 7.5 mg MWF Right sided sciatica 03/20/2011 03/30/2014 Hypertension 04/13/2010 03/07/2015 Rheumatoid arthritis 04/01/2009 03/07/2015 Enthesopathy of hip region 01/04/200907/07 Embolism and thrombosis 11/23/2006 07/08/19 22 Pain in joint, lower leg 10/18/2006 019 documented as of this encounter (statuses as of 10/18/2021) [facility] History of Past illness Narrative* Problem Noted Date Resolved Date Murmur 03/08/2018 08/05/2018 Anemia 03/08/2018 04/26/2018 DVT, recurrent, lower extremity, acute 5 03/03/2018 Overview: Remote history of DVT S/P IVC filter On Warfarin 5 mg TTSS, 7.5 mg MWF Right sided sciatica 03/20/2011 03/30/2014 Hypertension 04/13/2010 03/07/2015 Rheumatoid arthritis 04/01/2009 03/07/2015 Enthesopathy of hip region 01/04/200907/07 Embolism and thrombosis 11/23/2006 07/08/19 22 Pain in joint, lower leg 10/18/2006 019 documented as of this encounter (statuses as of 10/19/2021) [facility] History of Past illness Narrative* Problem Noted Date Resolved Date Murmur 03/08/2018 08/05/2018 Anemia 03/08/2018 04/26/2018 DVT, recurrent, lower extremity, acute 5 03/03/2018 Overview: Remote history of DVT S/P IVC filter On Warfarin 5 mg TTSS, 7.5 mg MWF Right sided sciatica 03/20/2011 03/30/2014 Hypertension 04/13/2010 03/07/2015 Rheumatoid arthritis 04/01/2009 03/07/2015 Enthesopathy of hip region 01/04/200907/07 Embolism and thrombosis 11/23/2006 07/08/19 22 Pain in joint, lower leg 10/18/2006 019 documented as of this encounter (statuses as of 10/27/2021) [facility] History of Past illness Narrative* Problem Noted Date Resolved Date Murmur 03/08/2018 08/05/2018 Anemia 03/08/2018 04/26/2018 DVT, recurrent, lower extremity, acute 5 03/03/2018 Overview: Remote history of DVT S/P IVC filter On Warfarin 5 mg TTSS, 7.5 mg MWF Right sided sciatica 03/20/2011 03/30/2014 Hypertension 04/13/2010 03/07/2015 Rheumatoid arthritis 04/01/2009 03/07/2015 Enthesopathy of hip region 01/04/200907/07 Embolism and thrombosis 11/23/2006 07/08/19 22 Pain in joint, lower leg 10/18/2006 019 documented as of this encounter (statuses as of 11/01/2021) [facility] History of Past illness Narrative* Problem Noted Date Resolved Date Murmur 03/08/2018 08/05/2018 Anemia 03/08/2018 04/26/2018 DVT, recurrent, lower extremity, acute 5 03/03/2018 Overview: Remote history of DVT S/P IVC filter On Warfarin 5 mg TTSS, 7.5 mg MWF Right sided sciatica 03/20/2011 03/30/2014 Hypertension 04/13/2010 03/07/2015 Rheumatoid arthritis 04/01/2009 03/07/2015 Enthesopathy of hip region 01/04/200907/07 Embolism and thrombosis 11/23/2006 07/08/19 22 Pain in joint, lower leg 10/18/2006 019 documented as of this encounter (statuses as of 11/08/2021) [facility] History of Past illness Narrative* Problem Noted Date Resolved Date Murmur 03/08/2018 08/05/2018 Anemia 03/08/2018 04/26/2018 DVT, recurrent, lower extremity, acute 5 03/03/2018 Overview: Remote history of DVT S/P IVC filter On Warfarin 5 mg TTSS, 7.5 mg MWF Right sided sciatica 03/20/2011 03/30/2014 Hypertension 04/13/2010 03/07/2015 Rheumatoid arthritis 04/01/2009 03/07/2015 Enthesopathy of hip region 01/04/200907/07 Embolism and thrombosis 11/23/2006 07/08/19 22 Pain in joint, lower leg 10/18/2006 019 documented as of this encounter (statuses as of 11/10/2021) [facility] History of Past illness Narrative* Problem Noted Date Resolved Date Murmur 03/08/2018 08/05/2018 Anemia 03/08/2018 04/26/2018 DVT, recurrent, lower extremity, acute 5 03/03/2018 Overview: Remote history of DVT S/P IVC filter On Warfarin 5 mg TTSS, 7.5 mg MWF Right sided sciatica 03/20/2011 03/30/2014 Hypertension 04/13/2010 03/07/2015 Rheumatoid arthritis 04/01/2009 03/07/2015 Enthesopathy of hip region 01/04/200907/07 Embolism and thrombosis 11/23/2006 07/08/19 22 Pain in joint, lower leg 10/18/2006 019 documented as of this encounter (statuses as of 11/10/2021) [facility] of Past illness Narrative* Problem Noted Date Resolved Date Murmur 03/08/2018 08/05/2018 Anemia 03/08/2018 04/26/2018 DVT, recurrent, lower extremity, acute 5 03/03/2018 Overview: Remote history of DVT S/P IVC filter On Warfarin 5 mg TTSS, 7.5 mg MWF Right sided sciatica 03/20/2011 03/30/2014 Hypertension 04/13/2010 03/07/2015 Rheumatoid arthritis 04/01/2009 03/07/2015 Enthesopathy of hip region 01/04/200907/07 Embolism and thrombosis 11/23/2006 07/08/19 22 Pain in joint, lower leg 10/18/2006 019 documented as of this encounter (statuses as of 11/29/2021) [facility] of Past illness Narrative* Problem Noted Date Resolved Date Murmur 03/08/2018 08/05/2018 Anemia 03/08/2018 04/26/2018 DVT, recurrent, lower extremity, acute 5 03/03/2018 Overview: Remote history of DVT S/P IVC filter On Warfarin 5 mg TTSS, 7.5 mg MWF Right sided sciatica 03/20/2011 03/30/2014 Hypertension 04/13/2010 03/07/2015 Rheumatoid arthritis 04/01/2009 03/07/2015 Enthesopathy of hip region 01/04/200907/07 Embolism and thrombosis 11/23/2006 07/08/19 22 Pain in joint, lower leg 10/18/2006 019 documented as of this encounter (statuses as of 12/04/2021) [facility] of Past illness Narrative* Problem Noted Date Resolved Date Murmur 03/08/2018 08/05/2018 Anemia 03/08/2018 04/26/2018 DVT, recurrent, lower extremity, acute 5 03/03/2018 Overview: Remote history of DVT S/P IVC filter On Warfarin 5 mg TTSS, 7.5 mg MWF Right sided sciatica 03/20/2011 03/30/2014 Hypertension 04/13/2010 03/07/2015 Rheumatoid arthritis 04/01/2009 03/07/2015 Enthesopathy of hip region 01/04/200907/07 Embolism and thrombosis 11/23/2006 07/08/19 22 Pain in joint, lower leg 10/18/2006 019 documented as of this encounter (statuses as of 12/22/2021) [facility] of Past illness Narrative* Problem Noted Date Resolved Date Murmur 03/08/2018 08/05/2018 Anemia 03/08/2018 04/26/2018 DVT, recurrent, lower extremity, acute 5 03/03/2018 Overview: Remote history of DVT S/P IVC filter On Warfarin 5 mg TTSS, 7.5 mg MWF Right sided sciatica 03/20/2011 03/30/2014 Hypertension 04/13/2010 03/07/2015 Rheumatoid arthritis 04/01/2009 03/07/2015 Enthesopathy of hip region 01/04/200907/07 Embolism and thrombosis 11/23/2006 07/08/19 22 Pain in joint, lower leg 10/18/2006 019 documented as of this encounter (statuses as of 12/27/2021) [facility] of Past illness Narrative* Problem Noted Date Resolved Date Murmur 03/08/2018 08/05/2018 Anemia 03/08/2018 04/26/2018 DVT, recurrent, lower extremity, acute 5 03/03/2018 Overview: Remote history of DVT S/P IVC filter On Warfarin 5 mg TTSS, 7.5 mg MWF Right sided sciatica 03/20/2011 03/30/2014 Hypertension 04/13/2010 03/07/2015 Rheumatoid arthritis 04/01/2009 03/07/2015 Enthesopathy of hip region 01/04/200907/07 Embolism and thrombosis 11/23/2006 07/08/19 22 Pain in joint, lower leg 10/18/2006 019 documented as of this encounter (statuses as of 01/05/2022) [facility] of Past illness Narrative* Problem Noted Date Resolved Date Murmur 03/08/2018 08/05/2018 Anemia 03/08/2018 04/26/2018 DVT, recurrent, lower extremity, acute 5 03/03/2018 Overview: Remote history of DVT S/P IVC filter On Warfarin 5 mg TTSS, 7.5 mg MWF Right sided sciatica 03/20/2011 03/30/2014 Hypertension 04/13/2010 03/07/2015 Rheumatoid arthritis 04/01/2009 03/07/2015 Enthesopathy of hip region 01/04/200907/07 Embolism and thrombosis 11/23/2006 07/08/19 22 Pain in joint, lower leg 10/18/2006 019 documented as of this encounter (statuses as of 01/11/2022) [facility] of Past illness Narrative* Problem Noted Date Resolved Date Murmur 03/08/2018 08/05/2018 Anemia 03/08/2018 04/26/2018 DVT, recurrent, lower extremity, acute 5 03/03/2018 Overview: Remote history of DVT S/P IVC filter On Warfarin 5 mg TTSS, 7.5 mg MWF Right sided sciatica 03/20/2011 03/30/2014 Hypertension 04/13/2010 03/07/2015 Rheumatoid arthritis 04/01/2009 03/07/2015 Enthesopathy of hip region 01/04/200907/07 Embolism and thrombosis 11/23/2006 07/08/19 22 Pain in joint, lower leg 10/18/2006 019 documented as of this encounter (statuses as of 01/17/2022) [facility] of Past illness Narrative* Problem Noted Date Resolved Date Murmur 03/08/2018 08/05/2018 Anemia 03/08/2018 04/26/2018 DVT, recurrent, lower extremity, acute 5 03/03/2018 Overview: Remote history of DVT S/P IVC filter On Warfarin 5 mg TTSS, 7.5 mg MWF Right sided sciatica 03/20/2011 03/30/2014 Hypertension 04/13/2010 03/07/2015 Rheumatoid arthritis 04/01/2009 03/07/2015 Enthesopathy of hip region 01/04/200907/07 Embolism and thrombosis 11/23/2006 07/08/19 22 Pain in joint, lower leg 10/18/2006 019 documented as of this encounter (statuses as of 01/17/2022) [facility] of Past illness Narrative* Problem Noted Date Resolved Date Murmur 03/08/2018 08/05/2018 Anemia 03/08/2018 04/26/2018 DVT, recurrent, lower extremity, acute 5 03/03/2018 Overview: Remote history of DVT S/P IVC filter On Warfarin 5 mg TTSS, 7.5 mg MWF Right sided sciatica 03/20/2011 03/30/2014 Hypertension 04/13/2010 03/07/2015 Rheumatoid arthritis 04/01/2009 03/07/2015 Enthesopathy of hip region 01/04/200907/07 Embolism and thrombosis 11/23/2006 07/08/19 22 Pain in joint, lower leg 10/18/2006 019 documented as of this encounter (statuses as of 02/02/2022) [facility] of Past illness Narrative* Problem Noted Date Resolved Date Murmur 03/08/2018 08/05/2018 Anemia 03/08/2018 04/26/2018 DVT, recurrent, lower extremity, acute 5 03/03/2018 Overview: Remote history of DVT S/P IVC filter On Warfarin 5 mg TTSS, 7.5 mg MWF Right sided sciatica 03/20/2011 03/30/2014 Hypertension 04/13/2010 03/07/2015 Rheumatoid arthritis 04/01/2009 03/07/2015 Enthesopathy of hip region 01/04/200907/07 Embolism and thrombosis 11/23/2006 07/08/19 22 Pain in joint, lower leg 10/18/2006 019 documented as of this encounter (statuses as of 02/22/2022) [facility] of Past illness Narrative* Problem Noted Date Resolved Date Murmur 03/08/2018 08/05/2018 Anemia 03/08/2018 04/26/2018 DVT, recurrent, lower extremity, acute 5 03/03/2018 Overview: Remote history of DVT S/P IVC filter On Warfarin 5 mg TTSS, 7.5 mg MWF Right sided sciatica 03/20/2011 03/30/2014 Hypertension 04/13/2010 03/07/2015 Rheumatoid arthritis 04/01/2009 03/07/2015 Enthesopathy of hip region 01/04/200907/07 Embolism and thrombosis 11/23/2006 07/08/19 22 Pain in joint, lower leg 10/18/2006 019 documented as of this encounter (statuses as of 02/24/2022) [facility] of Past illness Narrative* Problem Noted Date Resolved Date Murmur 03/08/2018 08/05/2018 Anemia 03/08/2018 04/26/2018 DVT, recurrent, lower extremity, acute 5 03/03/2018 Overview: Remote history of DVT S/P IVC filter On Warfarin 5 mg TTSS, 7.5 mg MWF Right sided sciatica 03/20/2011 03/30/2014 Hypertension 04/13/2010 03/07/2015 Rheumatoid arthritis 04/01/2009 03/07/2015 Enthesopathy of hip region 01/04/200907/07 Embolism and thrombosis 11/23/2006 07/08/19 22 Pain in joint, lower leg 10/18/2006 019 documented as of this encounter (statuses as of 03/14/2022) [facility] Past illness Narrative* Problem Noted Date Resolved Date Murmur 03/08/2018 08/05/2018 Anemia 03/08/2018 04/26/2018 DVT, recurrent, lower extremity, acute 5 03/03/2018 Overview: Remote history of DVT S/P IVC filter On Warfarin 5 mg TTSS, 7.5 mg MWF Right sided sciatica 03/20/2011 03/30/2014 Hypertension 04/13/2010 03/07/2015 Rheumatoid arthritis 04/01/2009 03/07/2015 Enthesopathy of hip region 01/04/200907/07 Embolism and thrombosis 11/23/2006 07/08/19 22 Pain in joint, lower leg 10/18/2006 019 documented as of this encounter (statuses as of 03/30/2022) [facility] Past illness Narrative* Problem Noted Date Resolved Date Murmur 03/08/2018 08/05/2018 Anemia 03/08/2018 04/26/2018 DVT, recurrent, lower extremity, acute 5 03/03/2018 Overview: Remote history of DVT S/P IVC filter On Warfarin 5 mg TTSS, 7.5 mg MWF Right sided sciatica 03/20/2011 03/30/2014 Hypertension 04/13/2010 03/07/2015 Rheumatoid arthritis 04/01/2009 03/07/2015 Enthesopathy of hip region 01/04/200907/07 Embolism and thrombosis 11/23/2006 07/08/19 22 Pain in joint, lower leg 10/18/2006 019 documented as of this encounter (statuses as of 04/06/2022) [facility] Past illness Narrative* Problem Noted Date Resolved Date Murmur 03/08/2018 08/05/2018 Anemia 03/08/2018 04/26/2018 DVT, recurrent, lower extremity, acute 5 03/03/2018 Overview: Remote history of DVT S/P IVC filter On Warfarin 5 mg TTSS, 7.5 mg MWF Right sided sciatica 03/20/2011 03/30/2014 Hypertension 04/13/2010 03/07/2015 Rheumatoid arthritis 04/01/2009 03/07/2015 Enthesopathy of hip region 01/04/200907/07 Embolism and thrombosis 11/23/2006 07/08/19 22 Pain in joint, lower leg 10/18/2006 019 documented as of this encounter (statuses as of 04/21/2022) [facility] Past illness Narrative* Problem Noted Date Resolved Date Murmur 03/08/2018 08/05/2018 Anemia 03/08/2018 04/26/2018 DVT, recurrent, lower extremity, acute 5 03/03/2018 Overview: Remote history of DVT S/P IVC filter On Warfarin 5 mg TTSS, 7.5 mg MWF Right sided sciatica 03/20/2011 03/30/2014 Hypertension 04/13/2010 03/07/2015 Rheumatoid arthritis 04/01/2009 03/07/2015 Enthesopathy of hip region 01/04/200907/07 Embolism and thrombosis 11/23/2006 07/08/19 22 Pain in joint, lower leg 10/18/2006 019 documented as of this encounter (statuses as of 05/04/2022) [facility] Past illness Narrative* Problem Noted Date Resolved Date Murmur 03/08/2018 08/05/2018 Anemia 03/08/2018 04/26/2018 DVT, recurrent, lower extremity, acute 5 03/03/2018 Overview: Remote history of DVT S/P IVC filter On Warfarin 5 mg TTSS, 7.5 mg MWF Right sided sciatica 03/20/2011 03/30/2014 Hypertension 04/13/2010 03/07/2015 Rheumatoid arthritis 04/01/2009 03/07/2015 Enthesopathy of hip region 01/04/200907/07 Embolism and thrombosis 11/23/2006 07/08/19 22 Pain in joint, lower leg 10/18/2006 019 documented as of this encounter (statuses as of 05/24/2022) [facility] History of Past illness Narrative* Problem Noted Date Resolved Date Murmur 03/08/2018 08/05/2018 Anemia 03/08/2018 04/26/2018 DVT, recurrent, lower extremity, acute 5 03/03/2018 Overview: Remote history of DVT S/P IVC filter On Warfarin 5 mg TTSS, 7.5 mg MWF Right sided sciatica 03/20/2011 03/30/2014 Hypertension 04/13/2010 03/07/2015 Rheumatoid arthritis 04/01/2009 03/07/2015 Enthesopathy of hip region 01/04/200907/07 Embolism and thrombosis 11/23/2006 07/08/19 22 Pain in joint, lower leg 10/18/2006 019 documented as of this encounter (statuses as of 06/01/2022) [facility] History of Past illness Narrative* Problem Noted Date Resolved Date Murmur 03/08/2018 08/05/2018 Anemia 03/08/2018 04/26/2018 DVT, recurrent, lower extremity, acute 5 03/03/2018 Overview: Remote history of DVT S/P IVC filter On Warfarin 5 mg TTSS, 7.5 mg MWF Right sided sciatica 03/20/2011 03/30/2014 Hypertension 04/13/2010 03/07/2015 Rheumatoid arthritis 04/01/2009 03/07/2015 Enthesopathy of hip region 01/04/200907/07 Embolism and thrombosis 11/23/2006 07/08/19 22 Pain in joint, lower leg 10/18/2006 019 documented as of this encounter (statuses as of 06/29/2022) [facility] of Past illness Narrative* Problem Noted Date Resolved Date Murmur 03/08/2018 08/05/2018 Anemia 03/08/2018 04/26/2018 DVT, recurrent, lower extremity, acute 5 03/03/2018 Overview: Remote history of DVT S/P IVC filter On Warfarin 5 mg TTSS, 7.5 mg MWF Right sided sciatica 03/20/2011 03/30/2014 Hypertension 04/13/2010 03/07/2015 Rheumatoid arthritis 04/01/2009 03/07/2015 Enthesopathy of hip region 01/04/200907/07 Embolism and thrombosis 11/23/2006 07/08/19 22 Pain in joint, lower leg 10/18/2006 019 documented as of this encounter (statuses as of 07/24/2022) [facility] of Past illness Narrative* Problem Noted Date Resolved Date Murmur 03/08/2018 08/05/2018 Anemia 03/08/2018 04/26/2018 DVT, recurrent, lower extremity, acute 5 03/03/2018 Overview: Remote history of DVT S/P IVC filter On Warfarin 5 mg TTSS, 7.5 mg MWF Right sided sciatica 03/20/2011 03/30/2014 Hypertension 04/13/2010 03/07/2015 Rheumatoid arthritis 04/01/2009 03/07/2015 Enthesopathy of hip region 01/04/200907/07 Embolism and thrombosis 11/23/2006 07/08/19 22 Pain in joint, lower leg 10/18/2006 019 documented as of this encounter (statuses as of 07/24/2022) [facility] of Past illness Narrative* Problem Noted Date Resolved Date Murmur 03/08/2018 08/05/2018 Anemia 03/08/2018 04/26/2018 DVT, recurrent, lower extremity, acute 5 03/03/2018 Overview: Remote history of DVT S/P IVC filter On Warfarin 5 mg TTSS, 7.5 mg MWF Right sided sciatica 03/20/2011 03/30/2014 Hypertension 04/13/2010 03/07/2015 Rheumatoid arthritis 04/01/2009 03/07/2015 Enthesopathy of hip region 01/04/200907/07 Embolism and thrombosis 11/23/2006 07/08/19 22 Pain in joint, lower leg 10/18/2006 019 documented as of this encounter (statuses as of 08/13/2022) [facility] of [facility] illness Narrative* Problem Noted Date Resolved Date Murmur 03/08/2018 08/05/2018 Anemia 03/08/2018 04/26/2018 DVT, recurrent, lower extremity, acute 5 03/03/2018 Overview: Remote history of DVT S/P IVC filter On Warfarin 5 mg TTSS, 7.5 mg MWF Right sided sciatica 03/20/2011 03/30/2014 Hypertension 04/13/2010 03/07/2015 Rheumatoid arthritis 04/01/2009 03/07/2015 Enthesopathy of hip region 01/04/200907/07 Embolism and thrombosis 11/23/2006 07/08/19 22 Pain in joint, lower leg 10/18/2006 019 documented as of this encounter (statuses as of 08/15/2022) [facility] of Past illness Narrative* Problem Noted Date Diagnosed Date Resolved Date Murmur 03/08/2018 08/05/2018 Anemia 03/08/2018 04/26/2018 DVT, recurrent, lower extremity, acute 12/10/2014 03/03/2018 Overview: Remote history of DVT S/P IVC filter On Warfarin 5 mg TTSS, 7.5 mg MWF Right sided sciatica 03/20/2011 015 Hypertension 04/13/2010 03/07/2015 Rheumatoid arthritis 04/01/2009 016 Enthesopathy of hip region 01/04/2009 0 07/07/2021 Embolism and thrombosis 11/23/200606/19 Pain in joint, lower leg 10/18/200601/2019 documented as of this encounter (statuses as of 09/08/2022) [facility] of Past illness Narrative* Problem Noted Date Diagnosed Date Resolved Date Murmur 03/08/2018 08/05/2018 Anemia 03/08/2018 04/26/2018 DVT, recurrent, lower extremity, acute 12/10/2014 03/03/2018 Overview: Remote history of DVT S/P IVC filter On Warfarin 5 mg TTSS, 7.5 mg MWF Right sided sciatica 03/20/2011 015 Hypertension 04/13/2010 03/07/2015 Rheumatoid arthritis 04/01/2009 016 Enthesopathy of hip region 01/04/2009 0 07/07/2021 Embolism and thrombosis 11/23/200606/19 Pain in joint, lower leg 10/18/200601/2019 documented as of this encounter (statuses as of 09/11/2022) [facility] of Past illness Narrative* Problem Noted Date Diagnosed Date Resolved Date Murmur 03/08/2018 08/05/2018 Anemia 03/08/2018 04/26/2018 DVT, recurrent, lower extremity, acute 12/10/2014 03/03/2018 Overview: Remote history of DVT S/P IVC filter On Warfarin 5 mg TTSS, 7.5 mg MWF Right sided sciatica 03/20/2011 015 Hypertension 04/13/2010 03/07/2015 Rheumatoid arthritis 04/01/2009 016 Enthesopathy of hip region 01/04/2009 0 07/07/2021 Embolism and thrombosis 11/23/200606/19 Pain in joint, lower leg 10/18/200601/2019 documented as of this encounter (statuses as of 09/15/2022) [facility] of Past illness Narrative* Problem Noted Date Diagnosed Date Resolved Date Murmur 03/08/2018 08/05/2018 Anemia 03/08/2018 04/26/2018 DVT, recurrent, lower extremity, acute 12/10/2014 03/03/2018 Overview: Remote history of DVT S/P IVC filter On Warfarin 5 mg TTSS, 7.5 mg MWF Right sided sciatica 03/20/2011 015 Hypertension 04/13/2010 03/07/2015 Rheumatoid arthritis 04/01/2009 016 Enthesopathy of hip region 01/04/2009 0 07/07/2021 Embolism and thrombosis 11/23/200606/19 Pain in joint, lower leg 10/18/200601/2019 documented as of this encounter (statuses as of 09/26/2022) [facility] of Past illness Narrative* Problem Noted Date Diagnosed Date Resolved Date Murmur 03/08/2018 08/05/2018 Anemia 03/08/2018 04/26/2018 DVT, recurrent, lower extremity, acute 12/10/2014 03/03/2018 Overview: Remote history of DVT S/P IVC filter On Warfarin 5 mg TTSS, 7.5 mg MWF Right sided sciatica 03/20/2011 015 Hypertension 04/13/2010 03/07/2015 Rheumatoid arthritis 04/01/2009 016 Enthesopathy of hip region 01/04/2009 0 07/07/2021 Embolism and thrombosis 11/23/200606/19 Pain in joint, lower leg 10/18/200601/2019 documented as of this encounter (statuses as of 10/10/2022) [facility] of Past illness Narrative* Problem Noted Date Diagnosed Date Resolved Date Murmur 03/08/2018 08/05/2018 Anemia 03/08/2018 04/26/2018 DVT, recurrent, lower extremity, acute 12/10/2014 03/03/2018 Overview: Remote history of DVT S/P IVC filter On Warfarin 5 mg TTSS, 7.5 mg MWF Right sided sciatica 03/20/2011 015 Hypertension 04/13/2010 03/07/2015 Rheumatoid arthritis 04/01/2009 016 Enthesopathy of hip region 01/04/2009 0 07/07/2021 Embolism and thrombosis 11/23/200606/19 Pain in joint, lower leg 10/18/200601/2019 documented as of this encounter (statuses as of 10/13/2022) [facility] History of Past illness Narrative* Problem Noted Date Diagnosed Date Resolved Date Murmur 03/08/2018 08/05/2018 Anemia 03/08/2018 04/26/2018 DVT, recurrent, lower extremity, acute 12/10/2014 03/03/2018 Overview: Remote history of DVT S/P IVC filter On Warfarin 5 mg TTSS, 7.5 mg MWF Right sided sciatica 03/20/2011 015 Hypertension 04/13/2010 03/07/2015 Rheumatoid arthritis 04/01/2009 016 Enthesopathy of hip region 01/04/2009 0 07/07/2021 Embolism and thrombosis 11/23/200606/19 Pain in joint, lower leg 10/18/200601/2019 documented as of this encounter (statuses as of 10/27/2022) [facility] History of Past illness Narrative* Problem Noted Date Diagnosed Date Resolved Date Murmur 03/08/2018 08/05/2018 Anemia 03/08/2018 04/26/2018 DVT, recurrent, lower extremity, acute 12/10/2014 03/03/2018 Overview: Remote history of DVT S/P IVC filter On Warfarin 5 mg TTSS, 7.5 mg MWF Right sided sciatica 03/20/2011 015 Hypertension 04/13/2010 03/07/2015 Rheumatoid arthritis 04/01/2009 016 Enthesopathy of hip region 01/04/2009 0 07/07/2021 Embolism and thrombosis 11/23/200606/19 Pain in joint, lower leg 10/18/200601/2019 documented as of this encounter (statuses as of 10/27/2022) [facility] History of Past illness Narrative* Problem Noted Date Diagnosed Date Resolved Date Murmur 03/08/2018 08/05/2018 Anemia 03/08/2018 04/26/2018 DVT, recurrent, lower extremity, acute 12/10/2014 03/03/2018 Overview: Remote history of DVT S/P IVC filter On Warfarin 5 mg TTSS, 7.5 mg MWF Right sided sciatica 03/20/2011 015 Hypertension 04/13/2010 03/07/2015 Rheumatoid arthritis 04/01/2009 016 Enthesopathy of hip region 01/04/2009 0 07/07/2021 Embolism and thrombosis 11/23/200606/19 Pain in joint, lower leg 10/18/200601/2019 documented as of this encounter (statuses as of 10/31/2022) [facility] of Past illness Narrative* Problem Noted Date Diagnosed Date Resolved Date Murmur 03/08/2018 08/05/2018 Anemia 03/08/2018 04/26/2018 DVT, recurrent, lower extremity, acute 12/10/2014 03/03/2018 Overview: Remote history of DVT S/P IVC filter On Warfarin 5 mg TTSS, 7.5 mg MWF Right sided sciatica 03/20/2011 015 Hypertension 04/13/2010 03/07/2015 Rheumatoid arthritis 04/01/2009 016 Enthesopathy of hip region 01/04/2009 0 07/07/2021 Embolism and thrombosis 11/23/200606/19 Pain in joint, lower leg 10/18/200601/2019 documented as of this encounter (statuses as of 10/31/2022) [facility] of Past illness Narrative* Problem Noted Date Diagnosed Date Resolved Date Murmur 03/08/2018 08/05/2018 Anemia 03/08/2018 04/26/2018 DVT, recurrent, lower extremity, acute 12/10/2014 03/03/2018 Overview: Remote history of DVT S/P IVC filter On Warfarin 5 mg TTSS, 7.5 mg MWF Right sided sciatica 03/20/2011 015 Hypertension 04/13/2010 03/07/2015 Rheumatoid arthritis 04/01/2009 016 Enthesopathy of hip region 01/04/2009 0 07/07/2021 Embolism and thrombosis 11/23/200606/19 Pain in joint, lower leg 10/18/200601/2019 documented as of this encounter (statuses as of 11/02/2022) [facility] of Past illness Narrative* Problem Noted Date Diagnosed Date Resolved Date Murmur 03/08/2018 08/05/2018 Anemia 03/08/2018 04/26/2018 DVT, recurrent, lower extremity, acute 12/10/2014 03/03/2018 Overview: Remote history of DVT S/P IVC filter On Warfarin 5 mg TTSS, 7.5 mg MWF Right sided sciatica 03/20/2011 015 Hypertension 04/13/2010 03/07/2015 Rheumatoid arthritis 04/01/2009 016 Enthesopathy of hip region 01/04/2009 0 07/07/2021 Embolism and thrombosis 11/23/200606/19 Pain in joint, lower leg 10/18/200601/2019 documented as of this encounter (statuses as of 11/10/2022) [facility] of Past illness Narrative* Problem Noted Date Diagnosed Date Resolved Date Murmur 03/08/2018 08/05/2018 Anemia 03/08/2018 04/26/2018 DVT, recurrent, lower extremity, acute 12/10/2014 03/03/2018 Overview: Remote history of DVT S/P IVC filter On Warfarin 5 mg TTSS, 7.5 mg MWF Right sided sciatica 03/20/2011 015 Hypertension 04/13/2010 03/07/2015 Rheumatoid arthritis 04/01/2009 016 Enthesopathy of hip region 01/04/2009 0 07/07/2021 Embolism and thrombosis 11/23/200606/19 Pain in joint, lower leg 10/18/200601/2019 documented as of this encounter (statuses as of 11/23/2022) [facility] of Past illness Narrative* Problem Noted Date Diagnosed Date Resolved Date Murmur 03/08/2018 08/05/2018 Anemia 03/08/2018 04/26/2018 DVT, recurrent, lower extremity, acute 12/10/2014 03/03/2018 Overview: Remote history of DVT S/P IVC filter On Warfarin 5 mg TTSS, 7.5 mg MWF Right sided sciatica 03/20/2011 015 Hypertension 04/13/2010 03/07/2015 Rheumatoid arthritis 04/01/2009 016 Enthesopathy of hip region 01/04/2009 0 07/07/2021 Embolism and thrombosis 11/23/200606/19 Pain in joint, lower leg 10/18/200601/2019 documented as of this encounter (statuses as of 12/07/2022) [facility] History of Past illness Narrative* Problem Noted Date Diagnosed Date Resolved Date Murmur 03/08/2018 08/05/2018 Anemia 03/08/2018 04/26/2018 DVT, recurrent, lower extremity, acute 12/10/2014 03/03/2018 Overview: Remote history of DVT S/P IVC filter On Warfarin 5 mg TTSS, 7.5 mg MWF Right sided sciatica 03/20/2011 015 Hypertension 04/13/2010 03/07/2015 Rheumatoid arthritis 04/01/2009 016 Enthesopathy of hip region 01/04/2009 0 07/07/2021 Embolism and thrombosis 11/23/200606/19 Pain in joint, lower leg 10/18/200601/2019 documented as of this encounter (statuses as of 12/07/2022) [facility] History of Past illness Narrative* Problem Noted Date Diagnosed Date Resolved Date Murmur 03/08/2018 08/05/2018 Anemia 03/08/2018 04/26/2018 DVT, recurrent, lower extremity, acute 12/10/2014 03/03/2018 Overview: Remote history of DVT S/P IVC filter On Warfarin 5 mg TTSS, 7.5 mg MWF Right sided sciatica 03/20/2011 015 Hypertension 04/13/2010 03/07/2015 Rheumatoid arthritis 04/01/2009 016 Enthesopathy of hip region 01/04/2009 0 07/07/2021 Embolism and thrombosis 11/23/200606/19 Pain in joint, lower leg 10/18/200601/2019 documented as of this encounter (statuses as of 12/15/2022) [facility] History of Past illness Narrative* Problem Noted Date Diagnosed Date Resolved Date Murmur 03/08/2018 08/05/2018 Anemia 03/08/2018 04/26/2018 DVT, recurrent, lower extremity, acute 12/10/2014 03/03/2018 Overview: Remote history of DVT S/P IVC filter On Warfarin 5 mg TTSS, 7.5 mg MWF Right sided sciatica 03/20/2011 015 Hypertension 04/13/2010 03/07/2015 Rheumatoid arthritis 04/01/2009 016 Enthesopathy of hip region 01/04/2009 0 07/07/2021 Embolism and thrombosis 11/23/200606/19 Pain in joint, lower leg 10/18/200601/2019 documented as of this encounter (statuses as of 12/20/2022) [facility] of Past illness Narrative* Problem Noted Date Diagnosed Date Resolved Date Murmur 03/08/2018 08/05/2018 Anemia 03/08/2018 04/26/2018 DVT, recurrent, lower extremity, acute 12/10/2014 03/03/2018 Overview: Remote history of DVT S/P IVC filter On Warfarin 5 mg TTSS, 7.5 mg MWF Right sided sciatica 03/20/2011 015 Hypertension 04/13/2010 03/07/2015 Rheumatoid arthritis 04/01/2009 016 Enthesopathy of hip region 01/04/2009 0 07/07/2021 Embolism and thrombosis 11/23/200606/19 Pain in joint, lower leg 10/18/200601/2019 documented as of this encounter (statuses as of 12/24/2022) [facility] of Past illness Narrative* Problem Noted Date Diagnosed Date Resolved Date Murmur 03/08/2018 08/05/2018 Anemia 03/08/2018 04/26/2018 DVT, recurrent, lower extremity, acute 12/10/2014 03/03/2018 Overview: Remote history of DVT S/P IVC filter On Warfarin 5 mg TTSS, 7.5 mg MWF Right sided sciatica 03/20/2011 015 Hypertension 04/13/2010 03/07/2015 Rheumatoid arthritis 04/01/2009 016 Enthesopathy of hip region 01/04/2009 0 07/07/2021 Embolism and thrombosis 11/23/200606/19 Pain in joint, lower leg 10/18/200601/2019 documented as of this encounter (statuses as of 12/24/2022) [facility] of Past illness Narrative* Problem Noted Date Diagnosed Date Resolved Date Murmur 03/08/2018 08/05/2018 Anemia 03/08/2018 04/26/2018 DVT, recurrent, lower extremity, acute 12/10/2014 03/03/2018 Overview: Remote history of DVT S/P IVC filter On Warfarin 5 mg TTSS, 7.5 mg MWF Right sided sciatica 03/20/2011 015 Hypertension 04/13/2010 03/07/2015 Rheumatoid arthritis 04/01/2009 016 Enthesopathy of hip region 01/04/2009 0 07/07/2021 Embolism and thrombosis 11/23/200606/19 Pain in joint, lower leg 10/18/200601/2019 documented as of this encounter (statuses as of 01/04/2023) [facility] of Past illness Narrative* Problem Noted Date Diagnosed Date Resolved Date Murmur 03/08/2018 08/05/2018 Anemia 03/08/2018 04/26/2018 DVT, recurrent, lower extremity, acute 12/10/2014 03/03/2018 Overview: Remote history of DVT S/P IVC filter On Warfarin 5 mg TTSS, 7.5 mg MWF Right sided sciatica 03/20/2011 015 Hypertension 04/13/2010 03/07/2015 Rheumatoid arthritis 04/01/2009 016 Enthesopathy of hip region 01/04/2009 0 07/07/2021 Embolism and thrombosis 11/23/200606/19 Pain in joint, lower leg 10/18/200601/2019 documented as of this encounter (statuses as of 01/05/2023) [facility] Narrative* Problem Noted Date Diagnosed Date Resolved Date Murmur 03/08/2018 08/05/2018 Anemia 03/08/2018 04/26/2018 DVT, recurrent, lower extremity, acute 12/10/2014 03/03/2018 Overview: Remote history of DVT S/P IVC filter On Warfarin 5 mg TTSS, 7.5 mg MWF Right sided sciatica 03/20/2011 015 Hypertension 04/13/2010 03/07/2015 Rheumatoid arthritis 04/01/2009 016 Enthesopathy of hip region 01/04/2009 0 07/07/2021 Embolism and thrombosis 11/23/200606/19 Pain in joint, lower leg 10/18/200601/2019 documented as of this encounter (statuses as of 01/10/2023) [facility] of Past illness Narrative* Problem Noted Date Diagnosed Date Resolved Date Murmur 03/08/2018 08/05/2018 Anemia 03/08/2018 04/26/2018 DVT, recurrent, lower extremity, acute 12/10/2014 03/03/2018 Overview: Remote history of DVT S/P IVC filter On Warfarin 5 mg TTSS, 7.5 mg MWF Right sided sciatica 03/20/2011 015 Hypertension 04/13/2010 03/07/2015 Rheumatoid arthritis 04/01/2009 016 Enthesopathy of hip region 01/04/2009 0 07/07/2021 Embolism and thrombosis 11/23/200606/19 Pain in joint, lower leg 10/18/200601/2019 documented as of this encounter (statuses as of 01/18/2023) [facility] of Past illness Narrative* Problem Noted Date Diagnosed Date Resolved Date Murmur 03/08/2018 08/05/2018 Anemia 03/08/2018 04/26/2018 DVT, recurrent, lower extremity, acute 12/10/2014 03/03/2018 Overview: Remote history of DVT S/P IVC filter On Warfarin 5 mg TTSS, 7.5 mg MWF Right sided sciatica 03/20/2011 015 Hypertension 04/13/2010 03/07/2015 Rheumatoid arthritis 04/01/2009 016 Enthesopathy of hip region 01/04/2009 0 07/07/2021 Embolism and thrombosis 11/23/200606/19 Pain in joint, lower leg 10/18/200601/2019 documented as of this encounter (statuses as of 01/24/2023) [facility] Past illness Narrative* Problem Noted Date Diagnosed Date Resolved Date Murmur 03/08/2018 08/05/2018 Anemia 03/08/2018 04/26/2018 DVT, recurrent, lower extremity, acute 12/10/2014 03/03/2018 Overview: Remote history of DVT S/P IVC filter On Warfarin 5 mg TTSS, 7.5 mg MWF Right sided sciatica 03/20/2011 015 Hypertension 04/13/2010 03/07/2015 Rheumatoid arthritis 04/01/2009 016 Enthesopathy of hip region 01/04/2009 0 07/07/2021 Embolism and thrombosis 11/23/200606/19 Pain in joint, lower leg 10/18/200601/2019 documented as of this encounter (statuses as of 02/03/2023) [facility] Past [facility] Narrative* Problem Noted Date Diagnosed Date Resolved Date Murmur 03/08/2018 08/05/2018 Anemia 03/08/2018 04/26/2018 DVT, recurrent, lower extremity, acute 12/10/2014 03/03/2018 Overview: Remote history of DVT S/P IVC filter On Warfarin 5 mg TTSS, 7.5 mg MWF Right sided sciatica 03/20/2011 015 Hypertension 04/13/2010 03/07/2015 Rheumatoid arthritis 04/01/2009 016 Enthesopathy of hip region 01/04/2009 0 07/07/2021 Embolism and thrombosis 11/23/200606/19 Pain in joint, lower leg 10/18/200601/2019 documented as of this encounter (statuses as of 02/08/2023) [facility] Diagnosis Scre[facility] mamm[facility], encounter for- Primary [facility] Essential hypertension- Primary Unspecified essential hypertension History of COVID-19 Cough Bronchiectasis without complication (HCC) Bronchiectasis without acute exacerbation Gastroesophageal reflux disease without esophagitis Esophageal reflux Aortic stenosis with bicuspid valve 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 rheumatoid factor (HCC) [facility] Diagnosis Embolism and thrombosis (HCC) Embolism and thrombosis of unspecified site [facility] Diagnosis Moderate COPD (chronic obstructive pulmonary disease) (HCC)- Primary Chronic airway obstruction, not elsewhere classified Bronchiectasis without complication (HCC) Bronchiectasis without acute exacerbation Centrilobular emphysema (HCC) Other emphysema [facility] encounter [facility] Diagnosis Cough due to bronchospasm Acute bronchospasm [facility] Diagnosis Embolism and thrombosis (HCC) Embolism and thrombosis of unspecified site [facility] Diagnosis Personal history of DVT (deep vein thrombosis)- Primary Personal history of venous thrombosis and embolism [facility] Diagnosis Aortic stenosis with bicuspid valve- Primary Essential hypertension Unspecified essential hypertension [facility] Diagnosis Personal history of DVT (deep vein thrombosis)- Primary Personal history of venous thrombosis and embolism [facility] Diagnosis Encounter for screening mammogram for breast cancer [facility] this encounter [facility]* Diagnosis Gastroesophageal reflux disease without esophagitis- Primary Esophageal reflux Other viral warts Elevated LDL cholesterol level Pure hypercholesterolemia Essential hypertension Unspecified essential hypertension Need for COVID-19 vaccine COPD without exacerbation (HCC) Bronchiectasis without complication (HCC) Bronchiectasis without acute exacerbation [facility] Diagnosis Toe infection- Primary Unspecified local infection of skin and subcutaneous tissue Sinobronchitis Unspecified sinusitis (chronic) [facility] Diagnosis Personal history of DVT (deep vein thrombosis)- Primary Personal history of venous thrombosis and embolism [facility] encounter [facility] Diagnosis Abnormal mammogram Abnormal mammogram, unspecified [facility] this encounter [facility] Diagnosis Ulcer of toe of left foot, limited to breakdown of skin (HCC)- Primary Hammer toe of left foot Onychodystrophy Other specified disease of nail [facility] Diagnosis Embolism and thrombosis (HCC) Embolism and thrombosis of unspecified site [facility] Diagnosis Ulcer of toe of left foot, limited to breakdown of skin (HCC) Hammer toe of left foot [facility] Diagnosis Ulcer of toe of left foot, limited to breakdown of skin (HCC)- Primary Hammer toe of left foot Hallux rigidus of left foot Hallux rigidus [facility] Diagnosis COPD without exacerbation (HCC) Essential hypertension Unspecified essential hypertension [facility] Diagnosis Essential hypertension- Primary Unspecified essential hypertension Chronic obstructive pulmonary disease, unspecified COPD type (HCC) Encounter for immunization Need for other specified prophylactic vaccination against single bacterial disease Gastroesophageal reflux disease without esophagitis Esophageal reflux Bronchiectasis without complication (HCC) Bronchiectasis without acute exacerbation Aortic stenosis with bicuspid valve [facility] Diagnosis Lung nodules- Primary Other nonspecific abnormal finding of lung field Bronchiectasis without complication (HCC) Bronchiectasis without acute exacerbation Chronic obstructive pulmonary disease, unspecified COPD type (HCC) 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 rheumatoid factor (HCC) documented [facility] Diagnosis Personal history of DVT (deep vein thrombosis)- Primary Personal history of venous thrombosis and embolism [facility] Diagnosis 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 rheumatoid factor (HCC) Low back pain with right-sided sciatica, unspecified back pain laterality, unspecified chronicity [facility] Diagnosis 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 rheumatoid factor (HCC) Low back pain with right-sided sciatica, unspecified back pain laterality, unspecified chronicity Pseudogout Other disorder of calcium metabolism [facility] Diagnosis Personal history of DVT (deep vein thrombosis)- Primary Personal history of venous thrombosis and embolism [facility] Diagnosis Essential hypertension- Primary Unspecified essential hypertension Chronic anticoagulation Long-term (current) use of 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 Aortic stenosis with bicuspid valve 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 rheumatoid factor (HCC) COPD without exacerbation (HCC) Bronchiectasis without complication (HCC) Bronchiectasis without acute exacerbation Acquired hammertoe of left foot Early dry stage nonexudative age-related macular degeneration of both eyes [facility] Diagnosis Personal history of DVT (deep vein thrombosis)- Primary Personal history of venous thrombosis and embolism [facility] Diagnosis Personal history of DVT (deep vein thrombosis)- Primary Personal history of venous thrombosis and embolism [facility] Diagnosis Personal history of DVT (deep vein thrombosis)- Primary Personal history of venous thrombosis and embolism [facility] Diagnosis Lung nodules- Primary Other nonspecific abnormal finding of lung field Bronchiectasis without complication (HCC) Bronchiectasis without acute exacerbation 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 rheumatoid factor (HCC) [facility] Diagnosis Lung nodules- Primary Other nonspecific abnormal finding of lung field Bronchiectasis without complication (HCC) Bronchiectasis without acute exacerbation [facility] Diagnosis Personal history of DVT (deep vein thrombosis)- Primary Personal history of venous thrombosis and embolism [facility] Diagnosis Aortic stenosis with bicuspid valve- Primary Essential hypertension Unspecified essential hypertension History of recurrent deep vein thrombosis (DVT) [facility] Diagnosis 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 rheumatoid factor (HCC) Low back pain with right-sided sciatica, unspecified back pain laterality, unspecified chronicity Pseudogout Other disorder of calcium metabolism [facility] Diagnosis intermediate current use of anticoagulant therapy- Primary Long-term (current) use of 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 [facility] Diagnosis Essential hypertension- Primary Unspecified essential hypertension Encounter for immunization Need for other specified prophylactic vaccination against single bacterial disease Encounter for screening mammogram for breast cancer COPD without exacerbation (HCC) Low back pain with right-sided sciatica, unspecified back pain laterality, unspecified chronicity Hip pain, acute, left 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 rheumatoid factor (HCC) Bronchiectasis without complication (HCC) Bronchiectasis without acute exacerbation Lung nodule Solitary pulmonary nodule Aortic stenosis with bicuspid valve [facility] Diagnosis Chronic anticoagulation Long-term (current) use of 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 [facility] Diagnosis Chronic anticoagulation Long-term (current) use of 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 [facility]* Diagnosis Personal history of DVT (deep vein thrombosis)- Primary Personal history of venous thrombosis and embolism [facility]* Diagnosis Embolism and thrombosis (HCC)- Primary Embolism and thrombosis of unspecified site [facility]* Diagnosis DDD (degenerative disc disease), lumbar- Primary Degeneration of lumbar or lumbosacral intervertebral disc Hip pain, acute, left Age-related osteoporosis without current pathological fracture Senile osteoporosis [facility]* Diagnosis Embolism and thrombosis (HCC)- Primary Embolism and thrombosis of unspecified site [facility]* Diagnosis 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 rheumatoid factor (HCC) Low back pain with right-sided sciatica, unspecified back pain laterality, unspecified chronicity [facility]* Diagnosis Lung nodules Other nonspecific abnormal finding of lung field [facility]* Diagnosis Encounter for screening mammogram for breast cancer [facility] Diagnosis Encounter for immunization- Primary Need for other specified prophylactic vaccination against single bacterial disease [facility]* Diagnosis Embolism and thrombosis (HCC)- Primary Embolism and thrombosis of unspecified site [facility] Diagnosis Personal history of DVT (deep vein thrombosis)- Primary Personal history of venous thrombosis and embolism documented [facility] this [facility] Diagnosis Acute cough- Primary documented in this encounter [facility] for referral (narrative)* Outpatient Procedure (Routine) - Authorized Specialty Diagnoses / Procedures Referred By Divya reis Referred To Contact [facility] [place] Diagnoses Aortic stenosis with bicuspid valve Essential hypertension Procedures ECHO ECHO TTHRC R-T 2D W/WOM-MODE COMPL SPEC&COLR D William Ambriz DO [address] [place] [address] [facility] [place] [facility] [address] [address] Referral ID Status Reason Start Date Expiration Date Visits Requested Visits Authorized [id number] Authorized Auto-Generat ed Referral 08/12/2021 08/12/2022 1 1 * Outpatient Procedure (Routine) - Closed Specialty Diagnoses / Procedures [facility] Referred To Contact [facility] [place] Diagnoses Aortic stenosis with bicuspid valve Essential hypertension Procedures ECG COMPLETE ECG ROUTINE ECG W/LEAST 12 LDS W/I&R William Ambriz [address] [place] [address] [address] Referral ID Status Reason Start Date Expiration Date V isits Requested Visits Authorized [id number] Closed Auto-Generate d Referral 08/12/2021 08/12/2022 1 1 [facility] for referral (narrative)* Diagnostic Procedure Only (Routine) - Closed Specialty Diagnoses / Procedures Referred By Divya Referred To Contact [facility] Diagnoses Ulcer of toe of left foot, limited to breakdown of skin (HCC) Hammer toe of left foot Procedures XR FOOT GENERAL 3V AP/LAT/OBL LEFT RADEX FOOT COMPLETE MINIMUM 3 VIEWS Yonas Louise [address] [place] [address] Xr Imaging Referral ID Status Reason Start Date Expiration Date V isits Requested Visits Authorized [id number] Closed Auto-Generate d Referral 10/18/2021 11/17/2022 1 1 [facility] for referral (narrative)* Diagnostic Procedure Only (Routine) - Closed Specialty Diagnoses / Procedures Referred By Divya t Referred To Contact XR IMAGING Diagnoses Ulcer of toe of left foot, limited to breakdown of skin (HCC) Hammer toe of left foot Procedures XR FOOT GENERAL 3V AP/LAT/OBL LEFT RADEX FOOT COMPLETE MINIMUM 3 VIEWS Yonas Louise [address] [facility] [place] [address] Xr Imaging Referral ID Status Reason Start Date Expiration Date V isits Requested Visits Authorized [id number] Closed Auto-Generate d Referral 10/18/2021 11/17/2022 1 1 [facility] for referral (narrative)* Outpatient Procedure (Routine) - Authorized Specialty Diagnoses / Procedures Referred By Divya reis Referred [facility] Diagnoses Aortic stenosis with bicuspid valve Procedures ECHO ECHO TTHRC R-T 2D W/WOM-MODE COMPL SPEC&COLR Rachelle Wilcox APRN.CHUTE PULLER [address] [address] [facility] [place] [address] [place] [address] Referral ID Status Reason Start Date Expiration Date Visits Requested Visits Authorized [id number] Authorized Auto-Generat ed Referral 08/29/2022 08/29/2023 1 1 T [facility] for referral (narrative)* Diagnostic Procedure Only (Routine) - Authorized Specialty Diagnoses / Procedures Referred By Divya t Referred To Contact [facility] Diagnoses Encounter for screening mammogram for breast cancer Procedures SABINO SCREENING W ALIZE SCREENING DIGITAL BREAST TOMOSYNTHESIS BI SCREENING MAMMOGRAPHY BI 2-VIEW BREAST INC CAD CariasJimbo APRN.TROLLEY CAR OPERATOR [address] [place] [address] [facility] [address] [place] [address] Referral ID Status Reason Start Date Expiration Date Visits Requested Visits Authorized [id number] Authorized Auto-Generat ed Referral 10/27/2022 11/26/2023 1 1 * Diagnostic Procedure Only (Routine) - Pending Review Specialty Diagnoses / Procedures Referred By Divya reis Referred To Contact [facility] Diagnoses Encounter for screening mammogram for breast cancer Procedures SABINO SCREENING SCREENING MAMMOGRAPHY BI 2-VIEW BREAST INC [facility] Trina CariasCONNIE moffett.TROLLEY CAR OPERATOR [address] [place] [address] [facility] [address] [place] [address] Referral ID Status Reason Start Date Expiration Date Visits Requested Visits Authorized [id number] Pending Review Auto-Generat ed Referral 10/27/2022 11/26/2023 1 1 [facility] Diagnostic Procedure Only (Routine) - Closed Specialty Diagnoses / Procedures Referred By Divya reis Referred To Contact [facility] Diagnoses Encounter for screening mammogram for breast cancer Procedures SABINO SCREENING W ALIZE SCREENING DIGITAL BREAST TOMOSYNTHESIS BI SCREENING MAMMOGRAPHY BI 2-VIEW BREAST INC [facility] CONNIE Watkins.TROLLEY CAR OPERATOR [address] [place] [address] [facility] [address] [place] [address] Referral ID Status Reason Start Date Expiration Date V isits Requested Visits Authorized [id number] Closed Auto-Generate d Referral 10/27/2022 11/26/2023 1 1 [facility] for visit Narrative* Diagnostic Procedure Only (Routine) - Closed Specialty Diagnoses / Procedures Referred By Divya t Referred To Contact XR IMAGING Diagnoses Ulcer of toe of left foot, limited to breakdown of skin (HCC) Hammer toe of left foot Procedures XR FOOT GENERAL 3V AP/LAT/OBL LEFT RADEX FOOT COMPLETE MINIMUM 3 VIEWS Yonas Louise [address] [place] [address] Xr Imaging Referral ID Status Reason Start Date Expiration Date V isits Requested Visits Authorized [id number] Closed Auto-Generate d Referral 10/18/2021 11/17/2022 1 1 [facility]* Diagnostic Procedure Only (Routine) - Closed Specialty Diagnoses / Procedures Referred By Divya t Referred To Contact [facility] Diagnoses Encounter for screening mammogram for breast cancer Procedures SABINO SCREENING W ALIZE SCREENING DIGITAL BREAST TOMOSYNTHESIS BI SCREENING MAMMOGRAPHY BI 2-VIEW BREAST INC CAD Jimbo Carias, NEEDLE BAR MOLDER.TROLLEY CAR OPERATOR [address] [place] [address] [facility] [address] [place] [address] Referral ID Status Reason Start Date Expiration Date V isits Requested Visits Authorized [id number] Closed Auto-Generate d Referral 10/27/2022 11/26/2023 1 1 [facility] Summary Purpose Family History No Family History Records FoundNo Family History Records FoundNo Family History Records FoundNo Family History Records Found Advance Directives No Advanced Directives Records FoundDocuments on File Type Date Recorded 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) 02/25/2018 1:19 PM Latest Code Status on File Code Status Date Activated Date Inactivated Comments Full Code 03/02/2018 6:22 PM 03/03/2018 4:33 PM Full Code Order Discussed With: Patient Documents on File Type Date Recorded 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) 03/24/2019 12:16 PM Advance Directive(s) 03/02/2018 11:28 AM Advance Directive(s) 02/25/2018 1:11 PM Advance Directive(s) 02/25/2018 1:19 PM Advance Directive(s) 01/25/2018 9:15 AM Advance Directive(s) 07/30/2017 2:22 PM Documents on File Type Date Recorded 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) 03/24/2019 12:16 PM Advance Directive(s) 03/02/2018 11:28 AM Advance Directive(s) 02/25/2018 1:11 PM Advance Directive(s) 02/25/2018 1:19 PM Advance Directive(s) 01/25/2018 9:15 AM Advance Directive(s) 07/30/2017 2:22 PM Latest Code Status on File Code Status Date Activated Date Inactivated Comments Full Code 03/02/2018 6:22 PM 03/03/2018 4:33 PM Documents on File Type Date Recorded 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) 02/25/2018 1:19 PM Latest Code Status on File Code Status Date Activated Date Inactivated Comments Full Code 03/02/2018 6:22 PM 03/03/2018 4:33 PM Question Answer Comments Full Code Order Discussed With: Patient Latest Code Status on File Code Status Date Activated Date Inactivated Comments Full Code 03/02/2018 6:22 PM 03/03/2018 4:33 PM Question Answer Comments Full Code Order Discussed With: Patient Latest Code Status on File Code Status Date Activated Date Inactivated Comments Full Code 03/02/2018 6:22 PM 03/03/2018 4:33 PM Question Answer Comments Full Code Order Discussed With: Patient Latest Code Status on File Code Status Date Activated Date Inactivated Comments Full Code 03/02/2018 6:22 PM 03/03/2018 4:33 PM Question Answer Comments Full Code Order Discussed With: Patient Reason for Referral Specialty Diagnoses / Procedures Referred By Contac t Referred To Contact CT IMAGING Diagnoses Lung nodules Procedures CT CHEST WO IVCON DIAGNOSTIC COMPUTED TOMOGRAPHY THORAX W/O Florence Duncan MD [address] [place] [address] Ct Imaging Referral ID Status Reason Start Date Expiration Date Visits Requested Visits Authorized [id number] Authorized Auto-Generat ed Referral 2 12/29/2022 1 1 Specialty Diagnoses / Procedures Referred By Contac t Referred To Contact CT IMAGING Diagnoses Lung nodules Bronchiectasis without complication (HCC) Procedures CT CHEST WO IVCON DIAGNOSTIC COMPUTED TOMOGRAPHY THORAX W/O Florence Duncan MD [address] [place] [address] Ct Imaging Referral ID Status Reason Start Date Expiration Date Visits Requested Visits Authorized [id number] Authorized Auto-Generat ed Referral 01/23/2023 08/23/2023 1 1 Specialty Diagnoses / Procedures Referred By Divya t Referred To Contact CT IMAGING Diagnoses Lung nodules Procedures CT CHEST WO IVCON DIAGNOSTIC COMPUTED TOMOGRAPHY THORAX W/O CNTRST Florence Terry MD [address] [place] [address] [place] [address] Referral ID Status Reason Start Date Expiration Date V isits Requested Visits Authorized [id number] Closed Auto-Generate d Referral 11/29/2021 12/29/2022 1 1 Medications Administered Section Administered Medications Medication Order MAR Action Action Date Dose Rate Site PPD ([place]) Given 06/24/2007 0.1 cc Health Concerns Problem Noted Date High Risk Chronic Disease Home Monitorin g Problem 07/05/2022 Problem Noted Date High Risk Chronic Disease Home Monitorin g Problem 07/05/2022 Problem Noted Date High Risk Chronic Disease Home Monitorin g Problem 07/05/2022 Problem Noted Date High Risk Chronic Disease Home Monitorin g Problem 07/05/2022 Problem Noted Date Diagnosed Date High Risk Chronic Disease Home Monitoring Proble m 07/05/2022 Problem Noted Date Diagnosed Date High Risk Chronic Disease Home Monitoring Proble 07/05/2022 Problem Noted Date Diagnosed Date High Risk Chronic Disease Home Monitoring Proble 07/05/2022 Problem Noted Date Diagnosed Date High Risk Chronic Disease Home Monitoring Proble 07/05/2022 Problem Noted Date Diagnosed Date High Risk Chronic Disease Home Monitoring Proble 07/05/2022 Problem Noted Date Diagnosed Date High Risk Chronic Disease Home Monitoring Proble 07/05/2022 Problem Noted Date Diagnosed Date High Risk Chronic Disease Home Monitoring Proble 07/05/2022 Problem Noted Date Diagnosed Date High Risk Chronic Disease Home Monitoring Proble 07/05/2022 Problem Noted Date Diagnosed Date High Risk Chronic Disease Home Monitoring Proble 07/05/2022 Problem Noted Date Diagnosed Date High Risk Chronic Disease Home Monitoring Proble 07/05/2022 Additional Source Comments INFORMATION SOURCE (unrecogn ized section and content) DATE CREATED AUTHOR AUTHOR'S ORGANIZ ATION 03/10/2018 [facility] DATE CREATED AUTHOR AUTHOR'S ORGANIZ ATION 05/29/2020 [facility] DATE CREATED AUTHOR AUTHOR'S HOWARD MEMBRENO 03/18/2023 [facility] Source Comments (unrecognize d section and content) In the event this informatio n is protected by the Federal Confidentiality of Alcohol and Drug Abuse Patient Records regulations: The Federal rules restrict any use of the information to criminally investigate or prosecute any alcohol or drug abuse patient.[facility] the event this information is protected by the Federal Confidentiality of Alcohol and Drug Abuse Patient Records regulations: The Federal rules restrict any use of the information to criminally investigate or prosecute any alcohol or drug abuse patient.[facility] the event this information is protected by the Federal Confidentiality of Alcohol and Drug Abuse Patient Records regulations: The Federal rules restrict any use of the information to criminally investigate or prosecute any alcohol or drug abuse patient.[facility] the event this information is protected by the Federal Confidentiality of Alcohol and Drug Abuse Patient Records regulations: The Federal rules restrict any use of the information to criminally investigate or prosecute any alcohol or drug abuse patient.[facility] the event this information is protected by the Federal Confidentiality of Alcohol and Drug Abuse Patient Records regulations: The Federal rules restrict any use of the information to criminally investigate or prosecute any alcohol or drug abuse patient.[facility] the event this information is protected by the Federal Confidentiality of Alcohol and Drug Abuse Patient Records regulations: The Federal rules restrict any use of the information to criminally investigate or prosecute any alcohol or drug abuse patient.[facility] the event this information is protected by the Federal Confidentiality of Alcohol and Drug Abuse Patient Records regulations: The Federal rules restrict any use of the information to criminally investigate or prosecute any alcohol or drug abuse patient.[facility] the event this information is protected by the Federal Confidentiality of Alcohol and Drug Abuse Patient Records regulations: The Federal rules restrict any use of the information to criminally investigate or prosecute any alcohol or drug abuse patient.[facility] the event this information is protected by the Federal Confidentiality of Alcohol and Drug Abuse Patient Records regulations: The Federal rules restrict any use of the information to criminally investigate or prosecute any alcohol or drug abuse patient.[facility] the event this information is protected by the Federal Confidentiality of Alcohol and Drug Abuse Patient Records regulations: The Federal rules restrict any use of the information to criminally investigate or prosecute any alcohol or drug abuse patient.[facility] the event this information is protected by the Federal Confidentiality of Alcohol and Drug Abuse Patient Records regulations: The Federal rules restrict any use of the information to criminally investigate or prosecute any alcohol or drug abuse patient.[facility] the event this information is protected by the Federal Confidentiality of Alcohol and Drug Abuse Patient Records regulations: The Federal rules restrict any use of the information to criminally investigate or prosecute any alcohol or drug abuse patient.[facility] the event this information is protected by the Federal Confidentiality of Alcohol and Drug Abuse Patient Records regulations: The Federal rules restrict any use of the information to criminally investigate or prosecute any alcohol or drug abuse patient.[facility] the event this information is protected by the Federal Confidentiality of Alcohol and Drug Abuse Patient Records regulations: The Federal rules restrict any use of the information to criminally investigate or prosecute any alcohol or drug abuse patient.[facility] the event this information is protected by the Federal Confidentiality of Alcohol and Drug Abuse Patient Records regulations: The Federal rules restrict any use of the information to criminally investigate or prosecute any alcohol or drug abuse patient.[facility] the event this information is protected by the Federal Confidentiality of Alcohol and Drug Abuse Patient Records regulations: The Federal rules restrict any use of the information to criminally investigate or prosecute any alcohol or drug abuse patient.[facility] the event this information is protected by the Federal Confidentiality of Alcohol and Drug Abuse Patient Records regulations: The Federal rules restrict any use of the information to criminally investigate or prosecute any alcohol or drug abuse patient.[facility] the event this information is protected by the Federal Confidentiality of Alcohol and Drug Abuse Patient Records regulations: The Federal rules restrict any use of the information to criminally investigate or prosecute any alcohol or drug abuse patient.[facility] the event this information is protected by the Federal Confidentiality of Alcohol and Drug Abuse Patient Records regulations: The Federal rules restrict any use of the information to criminally investigate or prosecute any alcohol or drug abuse patient.[facility] event this information is protected by the Federal Confidentiality of Alcohol and Drug Abuse Patient Records regulations: The Federal rules restrict any use of the information to criminally investigate or prosecute any alcohol or drug abuse patient.[facility] SystemIn the event this information is protected by the Federal Confidentiality of Alcohol and Drug Abuse Patient Records regulations: The Federal rules restrict any use of the information to criminally investigate or prosecute any alcohol or drug abuse patient.[facility] SystemIn the event this information is protected by the Federal Confidentiality of Alcohol and Drug Abuse Patient Records regulations: The Federal rules restrict any use of the information to criminally investigate or prosecute any alcohol or drug abuse patient.[facility] SystemIn the event this information is protected by the Federal Confidentiality of Alcohol and Drug Abuse Patient Records regulations: The Federal rules restrict any use of the information to criminally investigate or prosecute any alcohol or drug abuse patient.[facility] SystemIn the event this information is protected by the Federal Confidentiality of Alcohol and Drug Abuse Patient Records regulations: The Federal rules restrict any use of the information to criminally investigate or prosecute any alcohol or drug abuse patient.[facility] SystemIn the event this information is protected by the Federal Confidentiality of Alcohol and Drug Abuse Patient Records regulations: The Federal rules restrict any use of the information to criminally investigate or prosecute any alcohol or drug abuse patient.[facility] SystemIn the event this information is protected by the Federal Confidentiality of Alcohol and Drug Abuse Patient Records regulations: The Federal rules restrict any use of the information to criminally investigate or prosecute any alcohol or drug abuse patient.[facility] SystemIn the event this information is protected by the Federal Confidentiality of Alcohol and Drug Abuse Patient Records regulations: The Federal rules restrict any use of the information to criminally investigate or prosecute any alcohol or drug abuse patient.[facility] SystemIn the event this information is protected by the Federal Confidentiality of Alcohol and Drug Abuse Patient Records regulations: The Federal rules restrict any use of the information to criminally investigate or prosecute any alcohol or drug abuse patient.[facility] SystemIn the event this information is protected by the Federal Confidentiality of Alcohol and Drug Abuse Patient Records regulations: The Federal rules restrict any use of the information to criminally investigate or prosecute any alcohol or drug abuse patient.[facility] SystemIn the event this information is protected by the Federal Confidentiality of Alcohol and Drug Abuse Patient Records regulations: The Federal rules restrict any use of the information to criminally investigate or prosecute any alcohol or drug abuse patient.[facility] SystemIn the event this information is protected by the Federal Confidentiality of Alcohol and Drug Abuse Patient Records regulations: The Federal rules restrict any use of the information to criminally investigate or prosecute any alcohol or drug abuse patient.[facility] SystemIn the event this information is protected by the Federal Confidentiality of Alcohol and Drug Abuse Patient Records regulations: The Federal rules restrict any use of the information to criminally investigate or prosecute any alcohol or drug abuse patient.[facility] SystemIn the event this information is protected by the Federal Confidentiality of Alcohol and Drug Abuse Patient Records regulations: The Federal rules restrict any use of the information to criminally investigate or prosecute any alcohol or drug abuse patient.[facility] SystemIn the event this information is protected by the Federal Confidentiality of Alcohol and Drug Abuse Patient Records regulations: The Federal rules restrict any use of the information to criminally investigate or prosecute any alcohol or drug abuse patient.[facility] SystemIn the event this information is protected by the Federal Confidentiality of Alcohol and Drug Abuse Patient Records regulations: The Federal rules restrict any use of the information to criminally investigate or prosecute any alcohol or drug abuse patient.[facility] SystemIn the event this information is protected by the Federal Confidentiality of Alcohol and Drug Abuse Patient Records regulations: The Federal rules restrict any use of the information to criminally investigate or prosecute any alcohol or drug abuse patient.[facility] SystemIn the event this information is protected by the Federal Confidentiality of Alcohol and Drug Abuse Patient Records regulations: The Federal rules restrict any use of the information to criminally investigate or prosecute any alcohol or drug abuse patient.[facility] SystemIn the event this information is protected by the Federal Confidentiality of Alcohol and Drug Abuse Patient Records regulations: The Federal rules restrict any use of the information to criminally investigate or prosecute any alcohol or drug abuse patient.[facility] SystemIn the event this information is protected by the Federal Confidentiality of Alcohol and Drug Abuse Patient Records regulations: The Federal rules restrict any use of the information to criminally investigate or prosecute any alcohol or drug abuse patient.[facility] SystemIn the event this information is protected by the Federal Confidentiality of Alcohol and Drug Abuse Patient Records regulations: The Federal rules restrict any use of the information to criminally investigate or prosecute any alcohol or drug abuse patient.[facility] SystemIn the event this information is protected by the Federal Confidentiality of Alcohol and Drug Abuse Patient Records regulations: The Federal rules restrict any use of the information to criminally investigate or prosecute any alcohol or drug abuse patient.[facility] SystemIn the event this information is protected by the Federal Confidentiality of Alcohol and Drug Abuse Patient Records regulations: The Federal rules restrict any use of the information to criminally investigate or prosecute any alcohol or drug abuse patient.[facility] SystemIn the event this information is protected by the Federal Confidentiality of Alcohol and Drug Abuse Patient Records regulations: The Federal rules restrict any use of the information to criminally investigate or prosecute any alcohol or drug abuse patient.[facility] SystemIn the event this information is protected by the Federal Confidentiality of Alcohol and Drug Abuse Patient Records regulations: The Federal rules restrict any use of the information to criminally investigate or prosecute any alcohol or drug abuse patient.[facility] SystemIn the event this information is protected by the Federal Confidentiality of Alcohol and Drug Abuse Patient Records regulations: The Federal rules restrict any use of the information to criminally investigate or prosecute any alcohol or drug abuse patient.[facility] SystemIn the event this information is protected by the Federal Confidentiality of Alcohol and Drug Abuse Patient Records regulations: The Federal rules restrict any use of the information to criminally investigate or prosecute any alcohol or drug abuse patient.[facility] SystemIn the event this information is protected by the Federal Confidentiality of Alcohol and Drug Abuse Patient Records regulations: The Federal rules restrict any use of the information to criminally investigate or prosecute any alcohol or drug abuse patient.[facility] SystemIn the event this information is protected by the Federal Confidentiality of Alcohol and Drug Abuse Patient Records regulations: The Federal rules restrict any use of the information to criminally investigate or prosecute any alcohol or drug abuse patient.[facility] SystemIn the event this information is protected by the Federal Confidentiality of Alcohol and Drug Abuse Patient Records regulations: The Federal rules restrict any use of the information to criminally investigate or prosecute any alcohol or drug abuse patient.[facility] SystemIn the event this information is protected by the Federal Confidentiality of Alcohol and Drug Abuse Patient Records regulations: The Federal rules restrict any use of the information to criminally investigate or prosecute any alcohol or drug abuse patient.[facility] SystemIn the event this information is protected by the Federal Confidentiality of Alcohol and Drug Abuse Patient Records regulations: The Federal rules restrict any use of the information to criminally investigate or prosecute any alcohol or drug abuse patient.[facility] SystemIn the event this information is protected by the Federal Confidentiality of Alcohol and Drug Abuse Patient Records regulations: The Federal rules restrict any use of the information to criminally investigate or prosecute any alcohol or drug abuse patient.[facility] SystemIn the event this information is protected by the Federal Confidentiality of Alcohol and Drug Abuse Patient Records regulations: The Federal rules restrict any use of the information to criminally investigate or prosecute any alcohol or drug abuse patient.[facility] SystemIn the event this information is protected by the Federal Confidentiality of Alcohol and Drug Abuse Patient Records regulations: The Federal rules restrict any use of the information to criminally investigate or prosecute any alcohol or drug abuse patient.[facility] SystemIn the event this information is protected by the Federal Confidentiality of Alcohol and Drug Abuse Patient Records regulations: The Federal rules restrict any use of the information to criminally investigate or prosecute any alcohol or drug abuse patient.[facility] SystemIn the event this information is protected by the Federal Confidentiality of Alcohol and Drug Abuse Patient Records regulations: The Federal rules restrict any use of the information to criminally investigate or prosecute any alcohol or drug abuse patient.[facility] SystemIn the event this information is protected by the Federal Confidentiality of Alcohol and Drug Abuse Patient Records regulations: The Federal rules restrict any use of the information to criminally investigate or prosecute any alcohol or drug abuse patient.[facility] SystemIn the event this information is protected by the Federal Confidentiality of Alcohol and Drug Abuse Patient Records regulations: The Federal rules restrict any use of the information to criminally investigate or prosecute any alcohol or drug abuse patient.[facility] SystemIn the event this information is protected by the Federal Confidentiality of Alcohol and Drug Abuse Patient Records regulations: The Federal rules restrict any use of the information to criminally investigate or prosecute any alcohol or drug abuse patient.[facility] SystemIn the event this information is protected by the Federal Confidentiality of Alcohol and Drug Abuse Patient Records regulations: The Federal rules restrict any use of the information to criminally investigate or prosecute any alcohol or drug abuse patient.[facility] SystemIn the event this information is protected by the Federal Confidentiality of Alcohol and Drug Abuse Patient Records regulations: The Federal rules restrict any use of the information to criminally investigate or prosecute any alcohol or drug abuse patient.[facility] SystemIn the event this information is protected by the Federal Confidentiality of Alcohol and Drug Abuse Patient Records regulations: The Federal rules restrict any use of the information to criminally investigate or prosecute any alcohol or drug abuse patient.[facility] SystemIn the event this information is protected by the Federal Confidentiality of Alcohol and Drug Abuse Patient Records regulations: The Federal rules restrict any use of the information to criminally investigate or prosecute any alcohol or drug abuse patient.[facility] SystemIn the event this information is protected by the Federal Confidentiality of Alcohol and Drug Abuse Patient Records regulations: The Federal rules restrict any use of the information to criminally investigate or prosecute any alcohol or drug abuse patient.[facility] SystemIn the event this information is protected by the Federal Confidentiality of Alcohol and Drug Abuse Patient Records regulations: The Federal rules restrict any use of the information to criminally investigate or prosecute any alcohol or drug abuse patient.[facility] SystemIn the event this information is protected by the Federal Confidentiality of Alcohol and Drug Abuse Patient Records regulations: The Federal rules restrict any use of the information to criminally investigate or prosecute any alcohol or drug abuse patient.[facility] the event this information is protected by the Federal Confidentiality of Alcohol and Drug Abuse Patient Records regulations: The Federal rules restrict any use of the information to criminally investigate or prosecute any alcohol or drug abuse patient.[facility] SystemIn the event this information is protected by the Federal Confidentiality of Alcohol and Drug Abuse Patient Records regulations: The Federal rules restrict any use of the information to criminally investigate or prosecute any alcohol or drug abuse patient.[facility] SystemIn the event this information is protected by the Federal Confidentiality of Alcohol and Drug Abuse Patient Records regulations: The Federal rules restrict any use of the information to criminally investigate or prosecute any alcohol or drug abuse patient.[facility]In the event this information is protected by the Federal Confidentiality of Alcohol and Drug Abuse Patient Records regulations: The Federal rules restrict any use of the information to criminally investigate or prosecute any alcohol or drug abuse patient.[facility] SystemIn the event this information is protected by the Federal Confidentiality of Alcohol and Drug Abuse Patient Records regulations: The Federal rules restrict any use of the information to criminally investigate or prosecute any alcohol or drug abuse patient.[facility] SystemIn the event this information is protected by the Federal Confidentiality of Alcohol and Drug Abuse Patient Records regulations: The Federal rules restrict any use of the information to criminally investigate or prosecute any alcohol or drug abuse patient.[facility] SystemIn the event this information is protected by the Federal Confidentiality of Alcohol and Drug Abuse Patient Records regulations: The Federal rules restrict any use of the information to criminally investigate or prosecute any alcohol or drug abuse patient.[facility] SystemIn the event this information is protected by the Federal Confidentiality of Alcohol and Drug Abuse Patient Records regulations: The Federal rules restrict any use of the information to criminally investigate or prosecute any alcohol or drug abuse patient.[facility] SystemIn the event this information is protected by the Federal Confidentiality of Alcohol and Drug Abuse Patient Records regulations: The Federal rules restrict any use of the information to criminally investigate or prosecute any alcohol or drug abuse patient.[facility] SystemIn the event this information is protected by the Federal Confidentiality of Alcohol and Drug Abuse Patient Records regulations: The Federal rules restrict any use of the information to criminally investigate or prosecute any alcohol or drug abuse patient.[facility] Reason for Visit (unrecogniz ed section and content) Reason Comments Established Patient 4 month f ollow up- covid 02/06/21 Reason Comments Anticoagulation Reason Comments Recheck Reason Onset Date Comments Refill Request 06/04/2021 Reason Onset Date Comments Community Monitoring Outreach 06/29/2021 [place] [facility] CDM Outreach Reason Comments Refill Request symbicort Reason Comments Cardiology Follow Up No concerns Reason Comments Follow Up Reason Comments Acute Visit Left foot pain Reason Comments Radiology US Specialty Diagnoses / Procedures Referred By Contac t Referred To Contact [facility] Diagnoses Abnormal mammogram Procedures US BREAST LTD LT US BREAST UNI REAL TIME WITH IMAGE LIMITED Brenda Shankar, CONNIE.CHUTE PULLER [address] [place] [address] [facility] [address] [place] [address] Referral ID Status Reason Start Date Expiration Date V isits Requested Visits Authorized [id number] Closed Auto-Generate d Referral 09/05/2021 10/05/2022 1 1 Reason Comments Radiology Mammogram Specialty Diagnoses / Procedures Referred By Contac t Referred To Contact [facility] Diagnoses Abnormal mammogram Procedures SABINO DIAGNOSTIC LT DIAGNOSTIC MAMMOGRAPHY COMPUTER-AIDED DETCJ UNI Brenda Shankar, NEEDLE BAR MOLDER.CHUTE PULLER [address] [place] [address] [facility] [address] [place] [address] Referral ID Status Reason Start Date Expiration Date V isits Requested Visits Authorized [id number] Closed Auto-Generate d Referral 09/05/2021 10/05/2022 1 1 Reason Comments Established Patient Follow Up Pain Blister Reason Onset Date Comments Refill Request 10/18/2021 Reason Comments Follow Up Ulcer Reason Onset Date Comments Refill Request 11/08/2021 Reason Comments 4 month f/u Reason Comments Orders protime Reason Comments Established Patient COPD Reason Comments Results Reason Onset Date Comments Refill Request 01/10/2022 Reason Onset Date Comments Refill Request 01/17/2022 Reason Comments 4 month follow up Reason Comments Clearance for surgery Reason Comments Established Patient Lung Nodules Reason Comments Patient Update Reason Onset Date Comments Refill Request 08/15/2022 Reason Comments CARD Follow Up Annual No new cardiac con cerns Reason Onset Date Comments Anticoagulation 09/14/2022 Reason Onset Date Comments Refill Request 10/06/2022 Reason Comments Follow Up Reason Comments Medication Request Warfarin Reason Onset Date Comments Refill Request 10/31/2022 Reason Comments Medication Problem Reason Comments New Left hip painXray Pain Left hip painXray Specialty Diagnoses / Procedures Referred By Contac t Referred To Contact Orthopedics Diagnoses Hip pain, acute, left Procedures CONSULT TO ORTHOPAEDICS OFFICE/OUTPATIENT [facility] 60-74 MINUTES Jeana Sommers APRN.CHUTE PULLER [address] [place] [address] Referral ID Status Reason Start Date Expiration Date Visits Requested Visits Authorized [id number] Pending Review PCP Requested Referral 10/11/2022 10/11/2023 1 1 Reason Onset Date Comments Refill Request 12/20/[address] Specialty Diagnoses / Procedures Referred By Divya t Referred To Contact CT IMAGING Diagnoses Lung nodules Procedures CT CHEST WO IVCON DIAGNOSTIC COMPUTED TOMOGRAPHY THORAX W/O Florence Duncan MD [address] [place] [address] [place] [address] Referral ID Status Reason Start Date Expiration Date V isits Requested Visits Authorized [id number] Closed Auto-Generate d Referral 11/29/2021 12/29/2022 1 1 Reason Comments Imm/Inj COVID vaccine and di scuss RSV Reason Comments Refill Request Reason Comments Cough Cough and congestion x 4 weeks Care Teams (unrecognized sec tion and content) Yard Inspector Relationship Specialty Start Date End Date Claudine Durán MD [address] [place], [place] [id number] PCP - General Internal Medicine 03/02/16 Will granger [address] [place] [address] Referring Rheumatology 04/09/18 Gold Colón, food general managerFiber Optic Splicer Internal Medicine 07/22/20 Yard Inspector Relationship Specialty Start Date End Date Claudine Durán MD [address] [place], [place] [id number] PCP - General Internal Medicine 03/02/16 Will Hurley [address] [place] [address] Referring Rheumatology 04/09/18 Gold Colón, food general managerFiber Optic Splicer Internal Medicine 07/22/20 Yard Inspector Relationship Specialty Start Date End Date Claudine Durán MD [address] [place], [place] [id number] PCP - General Internal Medicine 03/02/16 Will Hurley [address] [facility] [address] Referring Rheumatology 04/09/18 Gold Colón, food general managerFiber Optic Splicer Internal Medicine 07/22/20 Yard Inspector Relationship Specialty Start Date End Date Claudine Durán MD [address] [place] [address] PCP - General Internal Medicine 03/02/16 [address] [place] [address] Referring Rheumatology 04/09/18 Gold Colón, food general managerFiber Optic Splicer Internal Medicine 07/22/20 Yard Inspector Relationship Specialty Start Date End Date Claudine Durán MD [address] [place] [address] PCP - General Internal Medicine 03/02/16 [address] [place] [address] Referring Rheumatology 04/09/18 Gold Colón, food general managerFiber Optic Splicer Internal Medicine 07/22/20 Yard Inspector Relationship Specialty Start Date End Date Claudine Durán MD [address] [place] [address] PCP - General Internal Medicine 03/02/16 Will Hurley [address] [place] [address] Referring Rheumatology 04/09/18 Gold Colón, food general managerFiber Optic Splicer Internal Medicine 07/22/20 Yard Inspector Relationship Specialty Start Date End Date Claudine Durán MD [address] [place] [address] PCP - General Internal Medicine 03/02/16 Will Hurley [address] [facility] [place] [address] Referring Rheumatology 04/09/18 Gold Colón, food general managerFiber Optic Splicer Internal Medicine 07/22/20 Yard Inspector Relationship Specialty Start Date End Date Claudine Durán MD [address] [place] [address] PCP - General Internal Medicine 03/02/16 Will [address] [facility] [place] [address] Referring Rheumatology 04/09/18 Gold Colón, food general managerFiber Optic Splicer Internal Medicine 07/22/20 Yard Inspector Relationship Specialty Start Date End Date Claudine Durán MD [address] [place], [place] [address] PCP - General Internal Medicine 03/02/16 Will [address] [facility] [place] [address] Referring Rheumatology 04/09/18 Gold Colón, food general managerFiber Optic Splicer Internal Medicine 07/22/20 Yard Inspector Relationship Specialty Start Date End Date Claudine Durán MD [address] [place] [address] PCP - General Internal Medicine 03/02/16 Will Hurley [address] [facility] [place] [address] Referring Rheumatology 04/09/18 Gold Colón, food general managerFiber Optic Splicer Internal Medicine 07/22/20 Yard Inspector Relationship Specialty Start Date End Date Claudine Durán MD [address] [facility] [place] [address] PCP - General Internal Medicine 03/02/16 Will Hurley [address] [facility] [place] [address] Referring Rheumatology 04/09/18 Gold Colón, food general managerFiber Optic Splicer Internal Medicine 07/22/20 Yard Inspector Relationship Specialty Start Date End Date Claudine Durán MD [address] [place] [address] PCP - General Internal Medicine 03/02/16 Will [address] [facility] [place] [address] Referring Rheumatology 04/09/18 Gold Colón, food general managerFiber Optic Splicer Internal Medicine 07/22/20 Yard Inspector Relationship Specialty Start Date End Date Claudine Durán MD [address] [facility] [place] [address] PCP - General Internal Medicine 03/02/16 Will [address]ley[address] [facility] [place] [address] Referring Rheumatology 04/09/18 Gold Colón, food general managerFiber Optic Splicer Internal Medicine 07/22/20 Yard Inspector Relationship Specialty Start Date End Date Claudine Durán MD [address] [place] [address] PCP - General Internal Medicine 03/02/16 Will Hurley [address] [place] [address] Referring Rheumatology 04/09/18 Gold Colón, food general managerFiber Optic Splicer Internal Medicine 07/22/20 Yard Inspector Relationship Specialty Start Date End Date Claudine Durán MD [address] [facility] [place] [address] PCP - General Internal Medicine 03/02/16 Will Hurley [facility] [address] [facility] [place] [address] Referring Rheumatology 04/09/18 Gold Colón RN [employer] Internal Medicine 07/22/20 Yard Inspector Relationship Specialty Start Date End Date Claudine Durán MD [address] [facility] [place] [address] PCP - General Internal Medicine 03/02/16 Will Hurley [address] [facility] [place] [address] Referring Rheumatology 04/09/18 Gold Colón RN [employer] Internal Medicine 07/22/20 Yard Inspector Relationship Specialty Start Date End Date Claudine Durán MD [address] [facility] [place] [address] PCP - General Internal Medicine 03/02/16 Will Hurley [address] [facility] [address] Referring Rheumatology 04/09/18 Gold Colón RN [employer] Internal Medicine 07/22/20 Yard Inspector Relationship Specialty Start Date End Date Claudine Durán MD [address] [facility] [place] [address] PCP - General Internal Medicine 03/02/16 Will Hurley [address] [facility] [place] [address] Referring Rheumatology 04/09/18 Lulú Ramos, RN [address] [place] [address] [employer] Family Medicine 07/22/20 Yard Inspector Relationship Specialty Start Date End Date Claudine Durán MD [address] [facility] [place] [address] PCP - General Internal Medicine 03/02/16 Will Hurley [facility] N [facility] [place] [address] Referring Rheumatology 04/09/18 Gold Colón, food general managerFiber Optic Splicer Internal Medicine 07/22/20 12/20/21 Lulú Ramos, PAULA [address] [place] [address] [employer] Family Medicine 07/22/20 Yard Inspector Relationship Specialty Start Date End Date Claudine Durán MD [address] [place] [address] PCP - General Internal Medicine 03/02/16 Will Hurley [facility] N [facility] [address] Referring Rheumatology 04/09/18 Lulú Ramos, PAULA [address] [place] [address] [employer] Family Medicine 07/22/20 Yard Inspector Relationship Specialty Start Date End Date Claudine Durán MD [address] [facility] [place] [address] PCP - General Internal Medicine 03/02/16 Will Hurley [facility] N [facility] [place] [address] Referring Rheumatology 04/09/18 Lulú Ramos, RN [address] [place] [address] [employer] Family Medicine 07/22/20 Yard Inspector Relationship Specialty Start Date End Date Claudine Durán MD [address] [facility] [place] [address] PCP - General Internal Medicine 03/02/16 Will Hurley [facility] N [facility] [place] [address] Referring Rheumatology 04/09/18 Lulú Ramos, RN [address] [facility] [place] [address] [employer] Family Medicine 07/22/20 Yard Inspector Relationship Specialty Start Date End Date Claudine Durán MD [address] [facility] [place] [address] PCP - General Internal Medicine 03/02/16 Will granger [address] [facility] [place] [address] Referring Rheumatology 04/09/18 Lulú Ramos, PAULA [address] [facility] [place] [address] [employer] Family Medicine 07/22/20 Yard Inspector Relationship Specialty Start Date End Date Claudine Durán MD [address] [facility] [place] [address] PCP - General Internal Medicine 03/02/16 Will Hurley [facility] N [facility] [place] [address] Referring Rheumatology 04/09/18 Lulú Ramos, PAULA [address] [facility] [place] [address] [employer] Family Medicine 12/20/21 Yard Inspector Relationship Specialty Start Date End Date Claudine Durán MD [address] [facility] [place] [address] PCP - General Internal Medicine 03/02/16 Will Hurley [address] [facility] [place] [address] Referring Rheumatology 04/09/18 Lulú Ramos, RN [address] [place] [address] [employer] Family Medicine 12/20/21 Yard Inspector Relationship Specialty Start Date End Date Claudine Durán MD [address] [facility] [place] [address] PCP - General Internal Medicine 03/02/16 Will Hurley [facility] N [facility] [place] [address] Referring Rheumatology 04/09/18 Lulú Ramos, PAULA [address] [place] [address] [employer] Family Medicine 12/20/21 Yard Inspector Relationship Specialty Start Date End Date Claudine Durán MD [address] [facility] [place] [address] PCP - General Internal Medicine 03/02/16 Will Hurley [facility] N [facility] [address] Referring Rheumatology 04/09/18 Lulú Ramos, PAULA [address] [place] [address] [employer] Family Medicine 12/20/21 Yard Inspector Relationship Specialty Start Date End Date Claudine Durán MD [address] [facility] [place] [address] PCP - General Internal Medicine 03/02/16 Will Hurley [address] [facility] [place] [address] Referring Rheumatology 04/09/18 Lulú Ramos, RN [address] [place], [place] [id number] [employer] Family Medicine 12/20/21 Yard Inspector Relationship Specialty Start Date End Date Claudine Durán MD [address] [place] [address] PCP - General Internal Medicine 03/02/16 Will Hurley [facility] N [facility] [place] [address] Referring Rheumatology 04/09/18 Lulú Ramos, PAULA [address] [place] [address] [employer] Family Medicine 12/20/21 Yard Inspector Relationship Specialty Start Date End Date Claudine Durán MD [address] [facility] [place] [address] PCP - General Internal Medicine 03/02/16 Will Hurley [facility] N [facility] [place] [address] Referring Rheumatology 04/09/18 Lulú Ramos, PAULA [address] [place] [address] [employer] Family Medicine 12/20/21 Yard Inspector Relationship Specialty Start Date End Date Claudine Durán MD [address] [facility] [place] [address] PCP - General Internal Medicine 03/02/16 Will Hurley [facility] N [facility] [place] [address] Referring Rheumatology 04/09/18 Lulú Ramos, RN [address] [facility], [place] [address] [employer] Family Medicine 12/20/21 Yard Inspector Relationship Specialty Start Date End Date Claudine Durán MD [address] [facility] [place] [address] PCP - General Internal Medicine 03/02/16 Will Hurley [address] [place] [address] Referring Rheumatology 04/09/18 Lulú Ramos, RN [address] [facility] [place] [address] [employer] [facility] 12/20/21 Yard Inspector Relationship Specialty Start Date End Date Claudine Durán MD [address] [facility] [place] [address] PCP - General Internal Medicine 03/02/16 Will Hurley [address] [place] [address] Referring Rheumatology 04/09/18 Lulú Ramos, PAULA [address] [place] [address] [employer] [facility] 12/20/21 Yard Inspector Relationship Specialty Start Date End Date Claudine Durán MD [address] [facility] [place] [address] PCP - General Internal Medicine 03/02/16 Will Hurley [address] [place] [address] Referring Rheumatology 04/09/18 Ilda Miller, PAULA [address] [place] [address] [employer] 07/27/22 Yard Inspector Relationship Specialty Start Date End Date Claudine Durán MD [address] [place] [address] PCP - General Internal Medicine 03/02/16 Will Hurley [address] [facility] [place] [address] Referring Rheumatology 04/09/18 Ilda Miller, PAULA [address] [place] [address] [employer] 07/27/22 Yard Inspector Relationship Specialty Start Date End Date Claudine Durán MD [address] [place] [address] PCP - General Internal Medicine 03/02/16 Will Hurley [address] [place] [address] Referring Rheumatology 04/09/18 Ilda Miller RN [address] [place] [address] [employer] 07/27/22 Yard Inspector Relationship Specialty Start Date End Date Claudine Durán MD [address] [place] [address] PCP - General Internal Medicine 03/02/16 Will Hurley [address] [facility] [address] Referring Rheumatology 04/09/18 Ilda Miller, PAULA [address] [place], [place] [id number] [employer] 07/27/22 Yard Inspector Relationship Specialty Start Date End Date Claudine Durán MD [address] [place], [place] [address] PCP - General Internal Medicine 03/02/16 Will Hurley [address] [facility] [place] [address] Referring Rheumatology 04/09/18 Ilda Miller, RN [address] [place] [address] [employer] 07/27/22 Yard Inspector Relationship Specialty Start Date End Date Claudine Durán MD [address] [facility] [place] [address] PCP - General Internal Medicine 03/02/16 Will Hurley [address] [facility] [place] [address] Referring Rheumatology 04/09/18 Ilda Miller, PAULA [address] [place] [address] [employer] 07/27/22 Yard Inspector Relationship Specialty Start Date End Date Claudine Durán MD [address] [facility] [place] [address] PCP - General Internal Medicine 03/02/16 Will Hurley [address] [facility] [place] [address] Referring Rheumatology 04/09/18 Ilda Miller, PAULA [address] [place] [address] [employer] 07/27/22 Yard Inspector Relationship Specialty Start Date End Date Claudine Durán MD [address] [facility] [place] [address] PCP - General Internal Medicine 03/02/16 Will Hurley [address] [facility] [address] Referring Rheumatology 04/09/18 Ilda Miller, RN [address] [place] [address] [employer] 07/27/22 Yard Inspector Relationship Specialty Start Date End Date Claudine Durán MD [address] [facility] [place] [address] PCP - General Internal Medicine 03/02/16 Will Hurley [address] [facility] [place] [address] Referring Rheumatology 04/09/18 Ilda Miller RN [address] [place] [address] [employer] 07/27/22 Yard Inspector Relationship Specialty Start Date End Date Claudine Durán MD [address] [place] [address] PCP - General Internal Medicine 03/02/16 Will Hurley [address] [facility] [place] [address] Referring Rheumatology 04/09/18 Ilda Miller RN [address] [place] [address] Fiber [employer] 07/27/22 Yard Inspector Relationship Specialty Start Date End Date Claudine Durán MD [address] [place] [address] PCP - General Internal Medicine 03/02/16 Will Hurley [address] [place], [place] [address] Referring Rheumatology 04/09/18 Ilda Miller, PAULA [address] [place] [address] [employer] 07/27/22 Yard Inspector Relationship Specialty Start Date End Date Claudine Durán MD [address] [facility] [place], [place] [address] PCP - General Internal Medicine 03/02/16 Will Hurley [address] [facility] [place] [address] Referring Rheumatology 04/09/18 Ilda Miller RN [address] [place] [address] Fiber [employer]er 07/27/22 Yard Inspector Relationship Specialty Start Date End Date Claudine Durán MD [address] [place], [place] [address] PCP - General Internal Medicine 03/02/16 Will Hurley [address] [facility] [place] [address] Referring Rheumatology 04/09/18 Lulú Ramos, PAULA [address] [place] [address] [employer] Family Medicine 12/20/2107/26 Yard Inspector Relationship Specialty Start Date End Date Claudine Durán MD [address] [facility] [place], [place] [address] PCP - General Internal Medicine 03/02/16 Will Hurley [address] [facility] [place] [address] Referring Rheumatology 04/09/18 Ilda Miller, RN [address] [place] [address] [employer]er 07/27/22 FOR RECORDS PERTAINING TO PATIENTS WHO ARE OR HAVE BEEN ENROLLED IN A CHEMICAL DEPENDENCY/SUBSTANCEABUSE PROGRAM, SOME INFORMATION MAY BE OMITTED. This clinical summary was aggregated from multiple sources. Caution should be exercised in using it in the provision of clinical care. This summary normalizes information from multiple sources, and as a consequence, information in this document may materially change the coding, format and clinical context of patient data. In addition, data may be omitted in some cases. CLINICAL DECISIONS SHOULD BE BASED ON THE PRIMARY CLINICAL RECORDS. [facility] [employer] [facility]. provides no warranty or guarantee of the accuracy or completeness of information in this document.
--- NOTE | 2023-03-19 12:45 | CT_ITS ---
STUDY: CT ABDOMEN AND PELVIS WITHOUT CONTRAST REASON FOR EXAM: Female, 77 years old. Abdominal pain. Small amount of the intraperitoneal air is seen on the recent CT scan of the thorax. RADIATION DOSAGE (If Supplied By Facility): CTDIvol = ( 6.22 ) mGy, DLP = ( 279.77 ) mGycm TECHNIQUE: Transaxial images were obtained from the dome of the diaphragm to the symphysis pubis without oral contrast, and without intravenous contrast. Sagittal and coronal images were reconstructed. Individualized dose optimization techniques were used for this CT. COMPARISON: Comparison is made with prior CT scan of the thorax done earlier in the day. FINDINGS: Persistent reticular nodular pattern with nodular density in the left lower lobe. Bronchiectasis and scarring along the medial aspect of the right middle lobe. Coronary artery calcification. Mild degree of anterior pericardial thickening. Once again, a small amount of free intraperitoneal air is seen. Normal liver. Mildly distended gallbladder. Tiny stones are seen along the dependent portion of the gallbladder lumen. There is moderate splenomegaly. Calcification in the splenic hilum most likely splenic artery calcification. Normal pancreas. Normal bilateral adrenal glands. Normal right kidney. Normal left kidney. Normal visualized stomach. Normal small intestine. Abnormal appearance of the transverse colon especially in its proximal portion. I suspect pneumatosis within the wall. An inflammatory process or possible ischemic changes should be ruled out. Sigmoid diverticula. Mild degree of increased markings are seen in the sigmoid mesentery. Contained mild sigmoid diverticulitis should be ruled out. The appendix is visualized and appears normal. There is diffuse atherosclerotic calcification of the abdominal aorta, without a demonstrated aneurysm. There is an IVC filter in place. Normal retroperitoneum. Normal urinary bladder. Normal abdominal wall. There are diffuse degenerative changes of the visualized lumbar spine. Anterior listhesis of L4 on L5 with spondylolysis of the pars interarticularis of the L5 vertebrae. CT/Abdomen/Pelvis without Cont IMPRESSION: Abnormal appearance of the transverse colon as described with evidence of pneumatosis in the wall of the colon especially along its proximal portion in the region of the hepatic flexure. An inflammatory process versus a possible vascular compromise should be ruled out. Free intraperitoneal air. Sigmoid diverticulosis with mild degree inflammatory changes in the sigmoid mesocolon. Sludge and possible tiny gallstones in the gallbladder lumen. Electronically Signed: Geo Ni MD at 13:47 EST ,
[2023-03-19] MEDS: Phytonadione (Vit K1) 5 MG TABLET PO (12:59)
[2023-03-19 13:22] VITALS: BP 102/74
[2023-03-19] MEDS: Meropenem 1 GM in 0.9% Normal Saline (100mL MB+) 100 ML IV (14:54)
--- NOTE | 2023-03-19 15:22 | ED.RN ---
[facility] CALLED, ETA 2 HOURS ([id number])
[2023-03-19 16:51] VITALS: BP 117/65
== END 2023-03-19 17:00 | disposition short-term general hospital (02) ==
PROVIDERS: Emergency Provider Emergency Medicine; PCP Internal Medicine; Visit Provider Emergency Medicine
DX: U07.1 COVID-19 (principal); K63.1 Perforation of intestine (nontraumatic); D68.9 Coagulation defect, unspecified; K52.9 Noninfective gastroenteritis and colitis, unspecified
CPT/HCPCS: 71275; 74176; 80048; 85025; 85610; 85730; 86850; 86900; 86901; 87631; 96361; 96365; 99284; J2185; J7050; Q9967; A4216

== ENCOUNTER 2023-03-26 10:47 | Observation (INO) | payer MEDICARE, SELFPAY ==
[2023-03-26] VITALS (8 sets, daily range): BP systolic 95–128; BP diastolic 70–94; PULSE 87–102; RESP 16–23; TEMP 36.3–36.6; O2SAT 95–98; BMI 23.3; BMI 22.6
--- OUTSIDE RECORDS SUMMARY | 2023-03-26 12:07 | XMS RPT_ITS | CCD ---
Author Name Unknown Address [address] [place] [address] Organization [facility] Care Team Providers Care Store Product Demonstrator Name Role Phone Mykel Santamaria Unavailable Unavailable Mykel Santamaria Unavailable Unavailable UNKNOWN, REFERR Unavailable Unavailable Will Hurley Attending Unavailable PROVIDER, UNKNOWN Referring Unavailable No, PCP Primary Care Unavailable Claudine Durán MD Primary Care Provider Will Hurley Unavailable Gold Colón RN Unavailable UnavailClaudine Cannon MD Primary Care Provider Will Hurley Unavailable Gold Colón RN M Unavailable UnavailWill Vaz Unavailable Rachel MITCHELL, Lulú Unavailable [phone] Gold Colón RN Unavailable UnavailClaudine Cannon MD Primary Care Provider Will Hurley Unavailable [phone] Rachel RN, Lulú Unavailable Rachel RN, Lulú [...] Unavailable TALAMPAS, CLAUDINE D Primary Care Unavailable CARIASVINITAI Attending Unavailable TALAMPAS, CLAUDINE D Primary Care [...] TALAMPAS, CLAUDINE D Primary Care Unavailable RACHELLE LIA Attending Unavailable TALAMPAS, CLAUDINE D Primary Care [...] Referring Unavailable CLAUDINE DURÁN Primary Care Unavailable LUIZ DURÁNA Adam Primary Care Unavailable GENO GRIFFITHS Consulting Unavailable MICHAEL LUJAN Admitting Unavailable CLAUDINE DURÁN Primary Care Unavailable SHARAN RIVAS Attending Unavailable Allergies Allergy Classification Reported Allergen(s) Allergy Type Date of Onset Reaction(s) Facility (20 sources) Penicillins; Translations: [PENICILLINS] Propensity to adverse reactions (disorder) 5 [facility] Repository Medications Current Medications Medication Drug Class(es) [...] mg subcutaneously. Every other week. 0 03/20/2017 Suspended Problems Active Problems Problem Classification Problem Date Documented Da te Episodic/Chronic Acquired foot deformities (5 sources) Hammer toe; Translations: [Other hammer toe(s) (acquired), left foot] Chronic Acute cerebrovascular disease (3 sources) Subdural hemorrhage; Translations: [Subdural hemorrhage] Onset: 5 Chronic Allergic reactions (1 source) Allergy to penicillin; Translations: [Allergy status to penicillin] Onset: 4 03-23-2023 Episodic Aortic and peripheral arterial embolism or thrombosis (15 sources) Vascular disorder; Translations: [Embolism and thrombosis of unspecified artery] Onset: 7 01-02-2017 Chronic Bacterial infection; unspecified site (2 sources) Disease due to Gram-negative bacteria; Translations: [Bacterial infection, unspecified] Onset: 4 03-20-2023 Episodic Cardiac and circulatory congenital anomalies (20 sources) Aortic valve stenosis; Translations: [Congenital stenosis of aortic valve] Onset: 9 04-26-2018 Chronic Chronic obstructive pulmonary disease and bronchiectasis (20 sources) Bronchiectasis; Translations: [Bronchiectasis, uncomplicated] Onset: 0 04-26-2019 Chronic Chronic ulcer of skin (20 sources) Ulcer of toe; Translations: [Non-pressure chronic ulcer of other part of left foot limited to breakdown of skin] Onset: 3 Chronic Deficiency and other anemia (20 sources) Iron deficiency anemia due to blood loss; Translations: [Iron deficiency anemia secondary to blood loss (chronic)] Onset: 8 01-24-2018 Chronic Deficiency and other anemia (1 source) Anemia, unspecified; Translations: [Relative anemia] Onset: 3 Episodic Disorders of lipid metabolism (1 source) Raised low density lipoprotein cholesterol; Translations: [Pure hypercholesterolemia, unspecified] Chronic Esophageal disorders (20 sources) Gastroesophageal reflux disease; Translations: [Gastro-esophageal reflux disease without esophagitis] Onset: 6 03-06-2005 Chronic Essential hypertension (20 sources) Essential hypertension; Translations: [Essential (primary) hypertension] Onset: 6 03-07-2015 Chronic Gout and other crystal arthropathies (2 sources) Calcium pyrophosphate deposition disease; Translations: [Other chondrocalcinosis, unspecified site] Chronic Menopausal disorders (20 sources) Atrophic vaginitis; Translations: [Postmenopausal atrophic vaginitis] Onset: 4 03-06-2013 Chronic Mycoses (20 sources) Histoplasmosis; Translations: [Histoplasmosis, unspecified] Onset: 9 03-03-2018 Episodic Osteoporosis (1 source) Senile osteoporosis; 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 without current pathological fracture] 11-09-2022 Chronic Other gastrointestinal disorders (1 source) Pneumatosis cystoides intestinalis; Translations: [Other specified diseases of intestine] Onset: 4 03-19-2023 Episodic Other gastrointestinal disorders (1 source) Perforation of intestine (nontraumatic); Translations: [Bowel perforation (HCC)] Onset: 4 Episodic Other infections; including parasitic (1 source) Personal history of other infectious and parasitic diseases; Translations: [History of COVID-19] Episodic Other liver diseases (1 source) Abnormal levels of other serum enzymes; Translations: [Acid phosphatase elevated] Onset: 3 Episodic Other lower respiratory disease (2 sources) Cough; Translations: [Cough] Episodic Other lower respiratory disease (4 sources) Multiple nodules of lung; Translations: [Other nonspecific abnormal finding of lung field] Episodic Other lower respiratory disease (1 source) Hemoptysis; Translations: [Hemoptysis] Onset: 4 03-23-2023 Episodic Other nervous system disorders (20 sources) Meralgia paresthetica; Translations: [Meralgia paresthetica, unspecified lower limb] Onset: 6 03-06-2005 Chronic Other non-traumatic joint disorders (20 sources) Arthropathy; Translations: [Arthropathy, unspecified] Onset: 7 12-05-2006 Chronic Other non-traumatic joint disorders (2 sources) Effusion, right wrist; Translations: [Effusion, right wrist] Onset: 9 Episodic Other non-traumatic joint disorders (2 sources) Hip pain; Translations: [Pain in left hip] 10-27-2022 Episodic Other screening for suspected conditions (not mental disorders or infectious disease) (1 source) Abnormal findings on diagnostic imaging of other specified body structures; Translations: [Abnormal CT of the chest] Onset: 4 Chronic Other screening for suspected conditions (not mental disorders or infectious disease) (12 sources) Patient encounter status; Translations: [Encounter for screening mammogram for malignant neoplasm of breast] Onset: 3 Episodic Other skin disorders (1 source) Dystrophia unguium; Translations: [Nail dystrophy] Episodic Other upper respiratory disease (1 source) Bronchospasm; Translations: [Acute bronchospasm] Episodic Other upper respiratory infections (1 source) Chronic sinusitis; Translations: [Chronic sinusitis, unspecified] Chronic Residual codes; unclassified (1 source) History of immunosuppressive therapy; Translations: [Personal history of immunosupression therapy] Onset: 4 03-23-2023 Episodic Retinal detachments; defects; vascular occlusion; and retinopathy (1 source) Nonexudative age-related macular degeneration; Translations: [Nonexudative age-related macular degeneration, bilateral, early dry stage] Chronic Rheumatoid arthritis and related disease (20 sources) Rheumatoid arthritis of multiple joints; Translations: [Rheumatoid arthritis with rheumatoid factor of multiple sites without organ or systems involvement] Onset: 6 06-06-2016 Chronic Skin and subcutaneous tissue infections (1 source) Infection of toe ; Translations: [Local infection of the skin and subcutaneous tissue, unspecified] Episodic Spondylosis; intervertebral disc disorders; other back problems (20 sources) Herniation of nucleus pulposus of lumbar intervertebral disc; Translations: [Other intervertebral disc displacement, lumbar region] Onset: 2 03-20-2011 Chronic Unclassified (1 source) Acute cough; Translations: [Acute cough] Onset: 3 Viral infection (2 sources) Verruca vulgaris; Translations: [Other viral warts] Onset: 4 Episodic Viral infection (1 source) COVID-19; Translations: [COVID-19] Onset: 4 Past or Other Problems Problem Classification Problem Date Documented Da te Episodic/Chronic Immunizations and screening for infectious disease (2 sources) Vaccination needed; Translations: [Encounter for immunization] Onset: 10-27-2022 Episodic Other acquired deformities (20 sources) Lumbar spondylolisthesis; Translations: [Spondylolisthesis, lumbar region] Onset: 07-30-2017 07-30-2017 Episodic Other aftercare (20 sources) Long-term current use of anticoagulant; Translations: [buttermaker (current) use of 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] Onset: 04-01-2009 12-10-2014 Episodic Other aftercare (1 source) USP (current) use of 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; Translations: [Chronic anticoagulation] [...] pain, acute, left] Onset: 11-09-2022 Episodic Other upper respiratory disease (20 sources) [...] Date Time Vital Sign Value Performing Clinician Dea hauser 02-07-2023 10:36-0500 Body temperature 98.6 [degF] Adri Zaragoza APRN.SANTY Work Phone: [facility] 02-07-2023 10:36-0500 Body weight 59.69 kg Adri Zaragoza INTERFACE ANALYST.SANTY Work Phone: [facility] 02-07-2023 10:36-0500 Diastolic blood pressure 82 mm[Hg] Adri Zaragoza INTERFACE ANALYST.SANTY Work Phone: [facility] 02-07-2023 10:36-0500 Heart rate 87 /min Adri Zaragoza APRN.SANTY Work Phone: [facility] 02-07-2023 10:36-0500 Respiratory rate 18 /min Adri Zaragoza APRN.SANTY Work Phone: [facility] 02-07-2023 10:36-0500 SaO2% (BldA) [Mass fraction] 98 % Adri Callow INTERFACE ANALYST.PHARMACEUTICAL PHYSICIAN Work Phone: [facility] 02-07-2023 10:36-0500 Systolic blood pressure 134 mm[Hg] Adri Callow INTERFACE ANALYST.PHARMACEUTICAL PHYSICIAN Work Phone: [facility] 01-04-2023 10:33-0500 Body weight 58.06 kg Jimbo Carias INTERFACE ANALYST.CLERICAL WAREHOUSEMAN Work Phone: [facility] 01-04-2023 10:33-0500 Diastolic blood pressure 75 mm[Hg] Jimbo Carias INTERFACE ANALYST.CLERICAL WAREHOUSEMAN Work Phone: [facility] 01-04-2023 10:33-0500 Heart rate 77 /min Jimbo Carias INTERFACE ANALYST.CLERICAL WAREHOUSEMAN Work Phone: [facility] 01-04-2023 10:33-0500 Respiratory rate 16 /min Jimbo Carias INTERFACE ANALYST.CLERICAL WAREHOUSEMAN Work Phone: [facility] 01-04-2023 10:33-0500 Systolic blood pressure 128 mm[Hg] Jimbo Carias INTERFACE ANALYST.CLERICAL WAREHOUSEMAN Work Phone: [facility] 10-27-2022 09:03-0400 Body weight 59.42 kg Jimbo Carias INTERFACE ANALYST.CLERICAL WAREHOUSEMAN Work Phone: [facility] 10-27-2022 09:03-0400 Diastolic blood pressure 66 mm[Hg] Jimbo Carias INTERFACE ANALYST.CLERICAL WAREHOUSEMAN Work Phone: [facility] 10-27-2022 09:03-0400 Heart rate 76 /min Jimbo Carias INTERFACE ANALYST.CLERICAL WAREHOUSEMAN Work Phone: [facility] 10-27-2022 09:03-0400 Respiratory rate 16 /min Jimbo Carias INTERFACE ANALYST.CLERICAL WAREHOUSEMAN Work Phone: [facility] 10-27-2022 09:03-0400 Systolic blood pressure 119 mm[Hg] Jimbo Carias INTERFACE ANALYST.CLERICAL WAREHOUSEMAN Work Phone: [facility] 08-29-2022 09:26-0400 Body height 162.6 cm Rachelle Eris INTERFACE ANALYST.PHARMACEUTICAL PHYSICIAN Work Phone: [facility] 08-29-2022 09:26-0400 Body weight 58.51 kg Rachelle Eris INTERFACE ANALYST.PHARMACEUTICAL PHYSICIAN Work Phone: [facility] 08-29-2022 09:26-0400 Diastolic blood pressure 78 mm[Hg] Rachelle Eris INTERFACE ANALYST.PHARMACEUTICAL PHYSICIAN Work Phone: [facility] 08-29-2022 09:26-0400 Heart rate 75 /min Rachelle Eris INTERFACE ANALYST.PHARMACEUTICAL PHYSICIAN Work Phone: [facility] 08-29-2022 09:26-0400 SaO2% (BldA) [Mass fraction] 98 % Rachelle Eris INTERFACE ANALYST.PHARMACEUTICAL PHYSICIAN Work Phone: [facility] 08-29-2022 09:26-0400 Systolic blood pressure 142 mm[Hg] Rachelle Eris INTERFACE ANALYST.PHARMACEUTICAL PHYSICIAN Work Phone: [facility] 07-20-2022 09:28-0400 Body weight 58.06 kg Florence Terry MD Work Phone: [facility] 07-20-2022 09:28-0400 Diastolic blood pressure 72 mm[Hg] Florence Terry MD Work Phone: [facility] 07-20-2022 09:28-0400 Heart rate 50 /min Florence Terry MD Work Phone: [facility] 07-20-2022 09:28-0400 Respiratory rate 17 /min Florence Terry MD Work Phone: [facility] 07-20-2022 09:28-0400 SaO2% (BldA) [Mass fraction] 100 % Florence Terry MD Work Phone: [facility] 07-20-2022 09:28-0400 Systolic blood pressure 122 mm[Hg] Florence Terry MD Work Phone: [facility] 03-13-2022 10:13-0500 Body temperature 96.69 [degF] Claudine Durán MD Work Phone: [facility] 03-13-2022 10:13-0500 Body weight 59.56 kg Claudine Durán MD Work Phone: [facility] 03-13-2022 10:13-0500 Diastolic blood pressure 68 mm[Hg] Claudine Durán MD Work Phone: [facility] 03-13-2022 10:13-0500 Heart rate 75 /min Claudine Durán MD Work Phone: [facility] 03-13-2022 10:13-0500 Respiratory rate 18 /min Claudine Durán MD Work Phone: [facility] 03-13-2022 10:13-0500 SaO2% (BldA) [Mass fraction] 100 % Claudine Durán MD Work Phone: [facility] 03-13-2022 10:13-0500 Systolic blood pressure 112 mm[Hg] Claudine Durán MD Work Phone: [facility] 11-29-2021 10:07-0400 Body weight 58.51 kg Florence Terry MD Work Phone: [facility] 11-29-2021 10:07-0400 Diastolic blood pressure 76 mm[Hg] Florence Terry MD Work Phone: [facility] 11-29-2021 10:07-0400 Heart rate 92 /min Florence Terry MD Work Phone: [facility] 11-29-2021 10:07-0400 Respiratory rate 18 /min Florence Terry MD Work Phone: [facility] 11-29-2021 10:07-0400 SaO2% (BldA) [Mass fraction] 97 % Florence Terry MD Work Phone: [facility] 11-29-2021 10:07-0400 Systolic blood pressure 122 mm[Hg] Florence Terry MD Work Phone: [facility] 11-10-2021 09:22-0400 Body weight 60.33 kg Jimbo Carias INTERFACE ANALYST.CLERICAL WAREHOUSEMAN Work Phone: [facility] 11-10-2021 09:22-0400 Diastolic blood pressure 80 mm[Hg] Jimbo Carias INTERFACE ANALYST.CLERICAL WAREHOUSEMAN Work Phone: [facility] 11-10-2021 09:22-0400 Heart rate 76 /min Jimbo Carias INTERFACE ANALYST.CLERICAL WAREHOUSEMAN Work Phone: [facility] 11-10-2021 09:22-0400 Respiratory rate 16 /min Jimbo Carias INTERFACE ANALYST.CLERICAL WAREHOUSEMAN Work Phone: [facility] 11-10-2021 09:22-0400 Systolic blood pressure 152 mm[Hg] Jimbo Carias INTERFACE ANALYST.CLERICAL WAREHOUSEMAN Work Phone: [facility] 09-20-2021 13:45-0400 Body weight 58.51 kg Jimbo Carias INTERFACE ANALYST.CLERICAL WAREHOUSEMAN Work Phone: [facility] 09-20-2021 13:45-0400 Diastolic blood pressure 64 mm[Hg] Jimbo Carias INTERFACE ANALYST.CLERICAL WAREHOUSEMAN Work Phone: [facility] 09-20-2021 13:45-0400 Heart rate 85 /min Jimbo Carias INTERFACE ANALYST.CLERICAL WAREHOUSEMAN Work Phone: [facility] 09-20-2021 13:45-0400 SaO2% (BldA) [Mass fraction] 96 % Jimbo Carias INTERFACE ANALYST.CLERICAL WAREHOUSEMAN Work Phone: [facility] 09-20-2021 13:45-0400 Systolic blood pressure 128 mm[Hg] Jimbo Carias INTERFACE ANALYST.CLERICAL WAREHOUSEMAN Work Phone: [facility] 08-12-2021 11:01-0400 Body height 162.6 cm William Ambriz DO Work Phone: [facility] 08-12-2021 11:01-0400 Body weight 59.42 kg William Ambriz DO Work Phone: [facility] 08-12-2021 11:01-0400 Diastolic blood pressure 74 mm[Hg] William Ambriz DO Work Phone: [facility] 08-12-2021 11:01-0400 Heart rate 72 /min William Ambriz DO Work Phone: [facility] 08-12-2021 11:01-0400 SaO2% (BldA) [Mass fraction] 99 % William Ambriz DO Work Phone: [facility] 08-12-2021 11:01-0400 Systolic blood pressure 130 mm[Hg] William Ambriz DO Work Phone: [facility] 07-11-2021 08:10-0400 Body weight 58.06 kg Claudine Durán MD Work Phone: [facility] 07-11-2021 08:10-0400 Diastolic blood pressure 74 mm[Hg] Claudine Durán MD Work Phone: [facility] 07-11-2021 08:10-0400 Heart rate 76 /min Claudine Durán MD Work Phone: [facility] 07-11-2021 08:10-0400 Systolic blood pressure 122 mm[Hg] Claudine Durán MD Work Phone: [facility] 2021 14:57-0400 Body height 162.6 cm Julio Andujar MD Work Phone: [facility] 2021 14:57-0400 Body weight 58.33 kg Julio Andujar MD Work Phone: [facility] 2021 14:57-0400 Diastolic blood pressure 67 mm[Hg] Julio Andujar MD Work Phone: [facility] 2021 14:57-0400 Heart rate 98 /min Julio Andujar MD Work Phone: [facility] 2021 14:57-0400 Respiratory rate 14 /min Julio Andujar MD Work Phone: [facility] 2021 14:57-0400 SaO2% (BldA) [Mass fraction] 99 % Julio Andujar MD Work Phone: [facility] 2021 14:57-0400 Systolic blood pressure 144 mm[Hg] Julio Andujar MD Work Phone: [facility] 03-14-2021 08:08-0500 Body height 162.6 cm Claudine Durán MD Work Phone: [facility] 03-14-2021 08:08-0500 Body temperature 97.5 [degF] Claudine Durán MD Work Phone: [facility] 03-14-2021 08:08-0500 Body weight 58.06 kg Claudine Durán MD Work Phone: [facility] 03-14-2021 08:08-0500 Diastolic blood pressure 62 mm[Hg] Claudine Durán MD Work Phone: [facility] 03-14-2021 08:08-0500 Heart rate 87 /min Claudine Durán MD Work Phone: [facility] 03-14-2021 08:08-0500 Respiratory rate 14 /min Claudine Durán MD Work Phone: [facility] 03-14-2021 08:08-0500 SaO2% (BldA) [Mass fraction] 99 % Claudine Durán MD Work Phone: [facility] 03-14-2021 08:08-0500 Systolic blood pressure 118 mm[Hg] Claudine Durán MD Work Phone: [facility] Encounters Encounter Date Encounter Type Care Provider Facility Start: 03-23-2023 Telephone encounter Rachelle Leonard INTERFACE ANALYST.PHARMACEUTICAL PHYSICIAN Work Phone: [facility] Procedures Date Procedure Procedure Detail Performing Clinician Start: 02-07-2023 COVID & INFLUENZA A/ B & RSV NAAT, ROUTINE Adri Zaragoza INTERFACE ANALYST.PHARMACEUTICAL PHYSICIAN Work Phone: Start: 01-04-2023 PFIZER-BIONTECH COVI D-19 VACCINE ( SEASON) AGE 12+ YR [facility] INTERFACE ANALYST.CLERICAL WAREHOUSEMAN Work Phone: Start: 01-04-2023 Prothrombin time [facility] INTERFACE ANALYST.CLERICAL WAREHOUSEMAN Work Phone: Start: 11-17-2022 Screening digital br east tomosynthesis bi [facility] INTERFACE ANALYST.CLERICAL WAREHOUSEMAN Work Phone: Start: 10-27-2022 INFLUENZA VACCINE, P RSV FREE, AGE 65+ YR, HIGH DOSE, QUADRIVALENT (FLUZONE HIGH-DOSE) [facility] INTERFACE ANALYST.CLERICAL WAREHOUSEMAN Work Phone: Start: 08-29-2022 Ecg routine ecg w/le ast 12 lds i&r only [facility] Provider Start: 07-20-2022 Ct thorax w/o contra st material Florence Terry MD Work Phone: Start: 11-10-2021 INFLUENZA SEASONAL QUADRIVALENT HIGH DOSE AGE 65+ [facility] INTERFACE ANALYST.CLERICAL WAREHOUSEMAN Work Phone: Start: 11-10-2021 PFIZER-BIONTECH COVI D-19 BIVALENT BOOSTER VACCINE, AGE 12+ YR [facility] INTERFACE ANALYST.CLERICAL WAREHOUSEMAN Work Phone: Start: 11-10-2021 Adult depression scr eening assessment [facility] INTERFACE ANALYST.CLERICAL WAREHOUSEMAN Work Phone: Start: 10-18-2021 Radex foot complete minimum 3 views Yonas Louise Work Phone: Start: 10-12-2021 Diagnostic mammograp hy computer-aided detcj uni [facility] INTERFACE ANALYST.PHARMACEUTICAL PHYSICIAN Work Phone: Start: 09-05-2021 End: 09-05-2021 Screening mammography bi 2-view breast inc [facility] INTERFACE ANALYST.PHARMACEUTICAL PHYSICIAN Work Phone: Start: 07-11-2021 PFIZER-BIONTECH COVI D-19 VACCINE, AGE 12+ YR (ARIAS TOP) Claudine Durán MD Work Phone: Start: 05-19-2022 Lipid 1996 panel - S luisito or Plasma Ashly Shay RN Start: 07-13-2020 Adult depression scr eening assessment Nara Talavera Start: 06-01-2020 Mammography Nara cobos Start: 03-24-2019 Colonoscopy Nara cobos Plan of Treatment Date Care Activity Detail Author Start: 11-05-2029 Urine microalbumin profile [facility] Start: 03-24-2029 Colonoscopy COLONOSCOPY [facility] Start: 03-24-2029 COLORECTAL CANCER SCREENING COLORECTAL CANCER SCREENING [facility] Start: 03-24-2029 Screening for malignant neoplasm of colon [facility] Start: 07-07-2026 Lipid 1996 panel - Serum or Plasma Lipid Screening [facility] Start: 07-07-2026 Lipid panel Lipid Screening [facility] Start: 07-07-2026 LIPID SCREEN LIPID SCREEN [facility] Start: 03-22-2026 Diabetes Screening Diabetes Screening [facility] Start: 03-03-2024 BP Controlled (<130/80) BP Controlled (<130/80) [facility] Start: 01-05-2024 BP Controlled (<130/80) BP Controlled (<130/80) [facility] Start: 10-28-2023 BP CONTROLLED (<130/80) BP CONTROLLED (<130/80) [facility] Start: 07-21-2023 BP CONTROLLED (<130/80) BP CONTROLLED (<130/80) [facility] Start: 07-08-2023 DIABETES SCREEN DIABETES SCREEN [facility] Start: 07-08-2023 Diabetes Screening Diabetes Screening [facility] Start: 03-13-2023 ANNUAL PCP TEAM CHRONIC DISEASE VISIT ANNUAL PCP TEAM CHRONIC DISEASE VISIT [facility] Start: 03-13-2023 BP CONTROLLED (<130/80) BP CONTROLLED (<130/80) [facility] Start: 03-01-2023 Covid-19 Vaccine () Covid-19 Vaccine () [facility] Start: 02-19-2023 Advance Directive Discussion Advance Directive Discussion [facility] Start: 02-19-2023 Depression Assessment Depression Assessment [facility] Start: 01-23-2023 End: 08-23-2023 Ct thorax w/o contrast material CT CHEST WO IVCON Radiology Routine Lung nodules Bronchiectasis without complication (HCC) Expected: 01/23/2023, Expires: 08/23/2023 [facility] Work Phone: Immunizations Immunization Date Immunization Notes Care Provider Galindo leyva 01-04-2023 COVID-19 vaccine, ag e 12+ yr, season (PFIZER-BIONTECH) Jimbo Carias INTERFACE ANALYST.CLERICAL WAREHOUSEMAN Work Phone: [facility] Work Phone: 10-27-2022 influenza (HD-IIV4) vaccine, age 65+ yr, high dose, quadrivalent, PF (FLUZONE HIGH-DOSE) Jimbo Carias INTERFACE ANALYST.CLERICAL WAREHOUSEMAN Work Phone: [facility] Work Phone: 11-10-2021 COVID-19 booster vaccine, age 12+ yr, bivalent (PFIZER-BIONTECH) Jimbo Carias INTERFACE ANALYST.CLERICAL WAREHOUSEMAN Work Phone: [facility] Work Phone: 11-10-2021 influenza, high-dose , quadrivalent vaccine (FLUZONE HIGH DOSE QUADRIVALENT) Jimbo Carias INTERFACE ANALYST.CLERICAL WAREHOUSEMAN Work Phone: [facility] Work Phone: 07-11-2021 COVID-19 vaccine, ag e 12+ yr (PFIZER-BIONTECH - ARIAS TOP) Kelly Ws Work Phone: [facility] 11-21-2020 COVID-19 original vaccine, age 12+ yr, monovalent (PFIZER-BIONTECH - PURPLE TOP) Claudine Durán MD Work Phone: [facility] 11-09-2020 COVID-19 vaccine, ag e 12+ yr (PFIZER-BIONTECH - PURPLE TOP) Nara Talavera [facility] 11-09-2020 influenza, high-dose , quadrivalent vaccine (FLUZONE HIGH DOSE QUADRIVALENT) Nara [facility] Work Phone: 05-13-2020 COVID-19 vaccine, ag e 12+ yr (PFIZER-BIONTECH - PURPLE TOP) Nara Talavera [facility] Work Phone: 04-22-2020 COVID-19 vaccine, ag e 12+ yr (iSpecimen-Foap ABNTFit Steps - PURPLE TOP) [facility] Work Phone: 11-06-2019 influenza, high-dose , quadrivalent vaccine (FLUZONE HIGH DOSE QUADRIVALENT) [facility] Work Phone: 11-06-2019 tetanus and diphther ia toxoids, adsorbed, preservative free, for adult use (5 Lf of tetanus toxoid and 2 Lf of diphtheria toxoid) [facility] Work Phone: 11-28-2018 zoster vaccine recombinant [facility] 10-26-2018 influenza, high dose seasonal, preservative-free [facility] 07-23-2018 zoster vaccine recombinant [facility] 11-27-2017 influenza, high dose seasonal, preservative-free [facility] 02-07-2017 pneumococcal polysaccharide vaccine, 23 valrandall Durán MD Work Phone: [facility] 01-31-2017 influenza, high dose seasonal, preservative-free [facility] 12-13-2016 pneumococcal polysaccharide vaccine, 23 valrandall Durán MD Work Phone: [facility] 11-28-2016 pneumococcal polysaccharide vaccine, Lachelle Durán MD Work Phone: [facility] 12-13-2015 influenza, high dose seasonal, preservative-free [facility] 11-10-2014 influenza, high dose seasonal, preservative-free [facility] 03-30-2014 pneumococcal conjuga te vaccine, 13 valent [facility] 12-08-2013 pneumococcal polysaccharide vaccine, 23 ravi Durán MD Work Phone: [facility] 11-24-2013 influenza, seasonal, injectable [facility] 03-24-2013 pneumococcal polysaccharide vaccine, 23 valent [facility] 11-18-2012 influenza virus vacc ine, unspecified formulation [facility] Work Phone: 11-10-2011 influenza virus vacc ine, unspecified formulation [facility] 11-23-2010 influenza virus vacc ine, unspecified formulation [facility] 10-07-2009 tetanus toxoid, redu amarilis diphtheria toxoid, and acellular pertussis vaccine, adsorbed [facility] 10-29-2008 influenza virus vacc ine, unspecified formulation [facility] 09-22-1999 diphtheria and tetan us toxoids, adsorbed for pediatric use [facility] Work Phone: Payers Date Payer Category Payer Medicare AETNA MEDICARE A ETNA MEDICARE PPO [id number] 2021-Present [phone] [address] [place] [address] PPO [id number] 2021 Medicare AETNA MEDICARE A ETNA MEDICARE PPO [id number] 2021-Present [phone] [address] [place] [address] PPO [id number] 2021 Medicare [id number] 1945 Unknown [id number] Medicare [id number] Private Health Insurance Social History Date Type Detail Facility Start: 08-28-2019 End: 11-10-2021 Tobacco smoking status NHIS Ex-smoker [facility] End: 02-19-1989 History of tobacco use Current smoker [facility] End: 02-19-1989 History of tobacco use Cigarette Smoker [facility] Start: 05-03-2021 End: 03-03-2023 Alcohol intake Current drinker of alcohol (finding) [facility] Start: 11-28-2019 End: 03-06-2022 History SDOH Alcohol Frequency 2 [facility] Start: 11-28-2019 End: 03-06-2022 History SDOH Alcohol Std Drinks 1 [facility] Start: 03-31-2019 End: 03-06-2022 History SDOH Social Connections Pentec[employer]al 3 [facility] Start: 03-31-2019 End: 03-06-2022 History SDOH Social Connections Living 4 [facility] Start: 07-28-2019 End: 03-06-2022 History SDOH Physical Activity DPW 5 [facility] Start: 03-31-2019 Education 18 [facility] Start: 08-28-2019 End: 11-10-2021 Tobacco Comment Late heavy smoker. [facility] Start: 1945 Sex Assigned At Female [facility] Start: 05-02-2021 End: 12-31-2021 Exposure to SARS-CoV-2 (event) Not sure [facility] Work Phone: Start: 08-28-2019 End: 06-22-2022 Cigarettes smoked current (pack per day) - Reported 1 [facility] Start: 08-28-2019 End: 11-10-2021 Tobacco use and exposure Smokeless tobacco non-user [facility] Start: 03-06-2022 End: 06-22-2022 Social connection and isolation panel [facility] Do you belong to any clubs or organizations such as mandaeism groups, unions, fraternal or athletic groups, or school groups? Yes [facility] Are you now , , , , never or living with a partner? [facility] How often to you hav e a drink containing alcohol? Monthly or less [facility] How many standard dr inks containing alcohol do you have on a typical day? 1 or 2 [facility] How often do you hav e 6 or more drinks on 1 occasion? Never [facility] How hard is it for y ou to pay for the very basics like food, housing, medical care, and heating Not hard at all [facility] Do you feel stress - tense, restless, nervous, or anxious, or unable to sleep at night because your mind is troubled all the time - these days [OSQ] Not at all [facility] (I/We) worried wheth er (my/our) food would run out before (I/we) got money to buy more. Never true [facility] In the past 12 month s, was there a time when you were not able to pay the mortgage or rent on time? No [facility] Start: 03-04-2019 Gender identity Identifies as female gender (finding) [facility] Start: 03-04-2019 Sexual orientation Heterosexual (finding) [facility] Goals Date Patient Goal Desired Activity /State Personal health goal Clinical Notes 03-08-2018 to 03-25-2023 Telephone Encounter - Rachelle Leonard APRN.PHARMACEUTICAL PHYSICIAN - 03/23/2023 5:16 PM Adri Duran APRN.PHARMACEUTICAL PHYSICIAN - 02/07/2023 10:52 AM Flex Brown RN - 02/02/2023 3:19 PM ESTPatient Instructions Note Date & Type Note Facility 03-25-2023 Note HNO ID: [id number] Author: ARMEN FERNANDEZ RN Service: Nursing Author Type: Registered Nurse Type: Nursing Progress Note Filed: 03/25/2023 08:58 Note Text: Sepsis alert, sound paged, vitals stable, pt stable, waitng for call-back from sound. [facility] 03-24-2023 Note HNO ID: [id number] Author: SHARAN RIVAS MD Service: Hospital Medicine Author Type: Physician Type: Progress Notes Filed: 03/24/2023 13:51 Note Text: DEPARTMENT OF HOSPITAL MEDICINE PROGRESS NOTE Hospital Medicine/Primary Attending: Sharan Rivas MD NIGHT AND WEEKEND COVERAGE: Before 7 pm please page Team color pager After 7pm please page [phone] MEDICATIONS: Current Facility-Administered Medications Medication Dose Route Frequency NaCl 0.9% iv flush bag 20 mL INTRAVENOUS PRN tiotropium bromide 2.5 mcg/actuation 2 Puff (SPIRIVA RESPIMAT) 2 Puff INHALATION DAILY gabapentin 300 mg cap(s) (NEURONTIN) 300 mg ORAL BID albuterol HFA 90 mcg/actuation 2 Puff (PROVENTIL HFA, VENTOLIN HFA) 2 Puff INHALATION q [address] 40 mg tab(s) (PROTONIX) 40 mg ORAL DAILY (6 AM) acetaminophen 975 mg tab(s) (TYLENOL) 975 mg ORAL QID ondansetron 4 mg tab(s) (ZOFRAN) 4 mg ORAL q 6 H PRN Or ondansetron (PF) 4 mg injection (ZOFRAN) 4 mg INTRAVENOUS q 6 H PRN oxyCODONE IR 5 mg tab(s) (ROXICODONE) 5 mg ORAL q 4 H PRN dexAMETHasone (DECADRON) tab(s) 6 mg 6 mg ORAL DAILY WITH BREAKFAST mometasone-formoterol 100-5 mcg/actuation 2 Puff inhaler (DULERA) 2 Puff INHALATION BID sodium chloride 0.9 % (flush) 2-10 mL (BD POSIFLUSH) 2-10 mL INTRAVENOUS DIRECTED PRN And perflutren lipid microspheres 1.1 mg/mL 1.3 mL injection (DEFINITY) 1.3 mL INTRAVENOUS DIRECTED PRN itraconazole 200 mg oral liquid (SPORANOX) 200 mg ORAL BID phenol 1 [place] (CHLORASEPTIC) 1 [place] MUCOUS MEMBRANE (TOPICAL MOUTH AND THROAT) q 2 H PRN enoxaparin 40 mg injection (LOVENOX) 40 mg SUBCUTANEOUS q 24 HR iv contrast (radiology procedure) INTRAVENOUS DIRECTED PRN ciprofloxacin HCl 500 mg tab(s) (CIPRO) 500 mg ORAL q 12 H 6a/6p metroNIDAZOLE 500 mg tab(s) (FLAGYL) 500 mg ORAL q 8 H WARFARIN DOSING PER PHARMACY 1 Each OTHER DAILY - WARFARIN DATA: Diagnostic tests reviewed for today's visit: CBC, Coags, BMP, Mg, Phos Recent Labs 03/24/23 0158 03/23/23 0235 03/23/23 0231 03/22/23 0325 WBC 12.21* 12.50* -- 10.53 HB 9.1* 7.7* -- 8.1* HCT 26.5* 22.8* -- 23.1* PLT 167 157 -- 148* INR 2.0* -- 2.1* 2.5* NA 132* -- -- 134* K 4.1 -- -- 4.0 CHLOR 98 -- -- 100 CO2 24 -- -- 26 BUN 32* -- -- 24* CREAT 0.89 -- -- 0.83 GLUC 125* -- -- 158* CA 8.8 -- -- 8.8 Liver Function, Amylase, AND Lipase Recent Labs 03/22/23 1356 03/22/23 0325 TPROT -- 5.1* 4.9* ALB -- 2.6* 2.7* ALT -- 53* 54* AST -- 38* 33 ALKPHOS -- 200* 201* TBILI -- 0.8 0.8 LACT 1.7 -- Cardiac Enzymes Glom Filtration Rate GWEN, and AA CARDIAC: No results for input(s): PBNP in the last 168 hours. Problem List Pneumatosis intestinalis (POA: Yes) Rheumatoid arthritis (HCC) (POA: Yes) Aortic valve stenosis (POA: Yes) COVID-19 (POA: Yes) Hemoptysis (POA: Yes) Gram-negative infection (POA: Status not on file) Anaerobic bacterial infection (POA: Status not on file) History of immunosuppressive therapy (POA: Yes) History of penicillin allergy (POA: Yes) Counseling, unspecified (POA: Status not on file) Encounter for long-term (current) use of antibiotics (POA: Yes) Histoplasmosis (POA: Yes) PHYSICAL EXAM: BP 118/65 Pulse 95 Temp (Src) 97.5 (Oral) Resp 19 Ht 5' 3 (1.60m) Wt 127 lb 6.8 oz (57.8kg) SpO2 97% BMI 22.58 kg/(m2). O2 Therapy: Room Air Follow up : Pt seen and examined at the bedside. Improved cough. Reported new onset diarrhea since last night with C. difficile testing negative. BP: 118/65 Temp: 36.4 ?C (97.5 ?F) Temp src: Oral Pulse: 95 Resp: 19 O2 Therapy: Room Air SpO2: 97 % Constitutional - Vitals as above, NAD Respiratory - Clear to auscultate both sides. No crackles, wheezes or rales, No labored breathing noted CVS-systolic murmur more pronounced on the right parasternal border GI- NTND, bowel sounds normally heard Recent Labs 03/24/23 0158 03/23/23 0235 03/23/23 0231 03/22/23 0325 WBC 12.21* 12.50* -- 10.53 HB 9.1* 7.7* -- 8.1* PLT 167 157 -- 148* BUN 32* -- -- 24* CREAT 0.89 -- -- 0.83 ANION 10 -- -- 8* CO2 24 -- -- 26 NA 132* -- -- 134* K 4.1 -- -- 4.0 CHLOR 98 -- -- 100 CA 8.8 -- -- 8.8 GLUC 125* -- -- 158* ALB -- -- -- 2.6* 2.7* TBILI -- -- -- 0.8 0.8 AST -- -- -- 38* 33 ALT -- -- -- 53* 54* INR 2.0* -- 2.1* 2.5* PTSEC 19.7* -- 21.0* 24.6* TPROT -- -- -- 5.1* 4.9* Assessment and plan: Haydee Bustamante is a 77-year-old with RA on Humira, HTN, disseminated histoplasmosis, and VTE on Coumadin presented with hemoptysis. She was found to be COVID-19 positive in [place]. 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 Pulmonology was consulted and patient was started on remdesivir and Decadron for COVID-19. Also started on itraconazole, Cipro and Flagyl. Surgery was involved with no surgical plans. # Pneumatosis intestinalis and pneumoper (more content not included)... [facility] 03-24-2023 Note HNO ID: [id number] Author: MAGAN COURTNEY DO Service: Pulmonary Disease Author Type: Physician Type: Progress Notes Filed: 03/24/2023 09:51 Note Text: PULMONARY CONSULT PROGRESS NOTE SERVICE DATE: 03/24/2023 SERVICE TIME: 0930 Subjective INTERVAL HPI: Patient clinically stable. Remains in COVID isolation. Completed 3 days of remdesivir. On dexamethasone-day 5. On itraconazole day 5. On metronidazole and ciprofloxacin for pneumatosis intestinalis 36. Clinically stable. States she feels better but has diarrhea. History of recurrent DVT status post IVC filter. She is telling me that when she is on itraconazole she usually holds her warfarin. I believe that she can continue this will just need to be watched closely and the dose adjusted. INR 2.0 today. Patient states that the last time she received itraconazole she was off of Coumadin for the course of her treatment. Afebrile.. On room air. Complaining of diarrhea today. Sore throat better and the patient is eating better. History of present illness: Mrs. Bustamante is a pleasant 77-year-old woman with a complex medical history. She has a history of disseminated histoplasmosis. She is followed in [place], [place]. She has a history of previous disseminated histoplasmosis. This was found in 2019 on colon biopsy. She has diffuse pulmonary changes with reticular nodular changes. They are planning on starting her on itraconazole in the near future once again. However she states that she has been having a sore throat for about the last 6 weeks. She presented to the emergency room at [place] after a vigorous coughing episode and coughing up about a tablespoon of bright red blood. She states that this is subsided. She is on Coumadin. It was noted that her INR was elevated. She denies shortness of breath, wheezing. She is bringing up some sputum but does not believe she is coughing up any more blood. She denies fevers, chills, or night sweats. She denies significant weight loss. She denies chest pain or palpitations. Was seen on CAT scan of the abdomen that she has a pneumoperitoneum. Also had findings consistent with pneumatosis intestinalis. She quit smoking cigarettes in 1989. Prior to this smoked about a pack a day for 20 years. She denies use of alcohol or illicit drugs. 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 She does not not have exposure to farm animals as far she knows. [place] history of [place] She denies orthopnea or paroxysmal nocturnal dyspnea. She denies wheezing. Denies shortness of breath with exertion. She does admit to about a 7 pound weight loss over the last 2 weeks due to her sore throat. MEDICATIONS: Current Facility-Administered Medications Medication Dose Route Frequency NaCl 0.9% iv flush bag 20 mL INTRAVENOUS PRN tiotropium bromide 2.5 mcg/actuation 2 Puff (SPIRIVA RESPIMAT) 2 Puff INHALATION DAILY gabapentin 300 mg cap(s) (NEURONTIN) 300 mg ORAL BID albuterol HFA 90 mcg/actuation 2 Puff (PROVENTIL HFA, VENTOLIN HFA) 2 Puff INHALATION q [address] 40 mg tab(s) (PROTONIX) 40 mg ORAL DAILY (6 AM) acetaminophen 975 mg tab(s) (TYLENOL) 975 mg ORAL QID ondansetron 4 mg tab(s) (ZOFRAN) 4 mg ORAL q 6 H PRN Or ondansetron (PF) 4 mg injection (ZOFRAN) 4 mg INTRAVENOUS q 6 H PRN oxyCODONE IR 5 mg tab(s) (ROXICODONE) 5 mg ORAL q 4 H PRN dexAMETHasone (DECADRON) tab(s) 6 mg 6 mg ORAL DAILY WITH BREAKFAST mometasone-formoterol 100-5 mcg/actuation 2 Puff inhaler (DULERA) 2 Puff INHALATION BID sodium chloride 0.9 % (flush) 2-10 mL (BD POSIFLUSH) 2-10 mL INTRAVENOUS DIRECTED PRN And perflutren lipid microspheres 1.1 mg/mL 1.3 mL injection (DEFINITY) 1.3 mL INTRAVENOUS DIRECTED PRN itraconazole 200 mg oral liquid (SPORANOX) 200 mg ORAL BID phenol 1 [place] (CHLORASEPTIC) 1 [place] MUCOUS MEMBRANE (TOPICAL MOUTH AND THROAT) q 2 H PRN enoxaparin 40 mg injection (LOVENOX) 40 mg SUBCUTANEOUS q 24 HR iv contrast (radiology procedure) INTRAVENOUS DIRECTED PRN ciprofloxacin HCl 500 mg tab(s) (CIPRO) 500 mg ORAL q 12 H 6a/6p metroNIDAZOLE 500 mg tab(s) (FLAGYL) 500 mg ORAL q 8 H WARFARIN DOSING PER PHARMACY 1 Each OTHER DAILY - WARFARIN Objective PHYSICAL EXAM: BP 118/65 Pulse 95 Temp (Src) 97.5 (Oral) Resp 19 Ht 5' 3 (1.60m) Wt 127 lb 6.8 oz (57.8kg) SpO2 97% BMI 22.58 kg/(m2). O2 Therapy: Room Air No intake or output data in the 24 hours ending 03/24/23 0933 Lines, Drains, and Airways Line Duration Peripheral 03/22/23 0930 Right Forearm 22 Gauge 2 days PHYSICAL EXAMINATION: Head: Normocephalic, no masses, lesions, tenderness or abnormalities Eyes: Anicteric sclera. Pupils are equally round and reactive to light. Extraocular movements are intact. Changes from bilateral lens implants Oropharynx: Lips, mucosa, and tongue normal, teeth and gums normal, oropharynx normal. Class II Mallampati oropharynx Neck: Supple, no adenopathy; thyroi (more content not included)... [facility] 03-23-2023 Miscellaneous Notes Please schedule patient to follow with Dr. Burger in 2 months. Thank you documented in this encounter [facility] 03-23-2023 Note HNO ID: [id number] Author: TENZIN NELSON RN Service: Care Management Author Type: Registered Nurse Type: Care Mgt Progress Note Filed: 03/23/2023 14:44 Note Text: CARE MANAGEMENT PROGRESS NOTE SERVICE DATE: 03/23/2023 SERVICE TIME: 12:22 PM LOS: 4 days Post-Acute Discharge Planning Patient Goal(s): Be able to go home, General wellness Cabins of Choice Explained: Cabins of Choice Given: No Reason Not Given: No placements necessary Discharge Planning Participant(s): Patient Patient/Family Comments: Anticipated # of Days Until Discharge: 1 Transport at Discharge: Transportation Arrangements: Car Needs Prior to Discharge: Needs Prior to Discharge: None IMM Follow Up Copy Given: Yes Copy given to:: Patient Method: In Person Post-Acute Discharge Plan: Chart reviewed. Patient completed 3 days Remdesivir. Plan for PO abx. She has been stable on RA. OT evaluated patient and is recommending home. PT eval is pending, but also anticipate home rec. Met with patient in room. DC plan is home with self care, patient's friends to transport. SIGNATURE: Tenzin Nelson RN PATIENT NAME: Haydee Bustamante DATE: March 23, 2023 TIME: 2:37 PM PAGER/CONTACT #: [phone] [facility] 03-23-2023 Note HNO ID: [id number] Author: MAGAN COURTNEY DO Service: Pulmonary Disease Author Type: Physician Type: Progress Notes Filed: 03/24/2023 09:32 Note Text: Attending Note I evaluated the patient and personally participated in the jim components. I agree with the resident's findings and plan as documented and have discussed the case and management of the patient's care with the resident. Patient awake and alert. Afebrile. On room air. Appreciate infectious disease evaluation. Dr. Burger note reviewed. Day 5 metronidazole, ciprofloxacin. Started on itraconazole, day 4. On dexamethasone day 4. Patient completed 3 days of remdesivir States she feels better. No further hemoptysis Patient afebrile. On room air. In no respiratory distress. No plans for surgery. Patient tolerating diet. Being continued on broad-spectrum antibiotics for pneumatosis intestinalis. Patient states that while she is on itraconazole she is not taking anticoagulant therapy. INR 2.1 today patient with a history of recurrent DVTs. Has IVC filter in place. Appreciate cardiology evaluation and echocardiogram resulted and reviewed. History of present illness: Mrs. Bustamante is a pleasant 77-year-old woman with a complex medical history. She has a history of disseminated histoplasmosis. She is followed in [place], [place]. She has a history of previous disseminated histoplasmosis. This was found in 2019 on colon biopsy. She has diffuse pulmonary changes with reticular nodular changes. They are planning on starting her on itraconazole in the near future once again. However she states that she has been having a sore throat for about the last 6 weeks. She presented to the emergency room at [place] after a vigorous coughing episode and coughing up about a tablespoon of bright red blood. She states that this is subsided. She is on Coumadin. It was noted that her INR was elevated. She denies shortness of breath, wheezing. She is bringing up some sputum but does not believe she is coughing up any more blood. She denies fevers, chills, or night sweats. She denies significant weight loss. She denies chest pain or palpitations. Was seen on CAT scan of the abdomen that she has a pneumoperitoneum. Also had findings consistent with pneumatosis intestinalis. She quit smoking cigarettes in 1989. Prior to this smoked about a pack a day for 20 years. She denies use of alcohol or illicit drugs. 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 She does not not have exposure to farm animals as far she knows. No history of bat exposure [place] She denies orthopnea or paroxysmal nocturnal dyspnea. She denies wheezing. Denies shortness of breath with exertion. She does admit to about a 7 pound weight loss over the last 2 weeks due to her sore throat. PHYSICAL EXAMINATION: Head: Normocephalic, no masses, lesions, tenderness or abnormalities Eyes: Anicteric sclera. Pupils are equally round and reactive to light. Extraocular movements are intact. Changes from bilateral lens implants Oropharynx: Lips, mucosa, and tongue normal, teeth and gums normal, oropharynx normal. Class II Mallampati oropharynx Neck: Supple, no adenopathy; thyroid symmetric, normal size, no bruits Lungs: Inspiratory crackles at the lung bases more so left lung base.. Inspiratory crackles noted anteriorly as well. Heart: Regular rate and rhythm with grade 3/6 systolic murmur heard best at the right second intercostal space Abdomen: Abdomen soft, non-tender. Bowel sounds normal. No masses, organomegaly Extremities: No deformities, edema, skin discoloration, clubbing or cyanosis. Good capillary refill. LABS: Recent Labs 03/23/23 0235 03/23/23 0231 03/22/23 0325 WBC 12.50* -- 10.53 RBC 2.82* -- 2.96* HB 7.7* -- 8.1* HCT 22.8* -- 23.1* MCV 80.9 -- 78.0* PLT 157 -- 148* NEUTP 82.0 -- -- LYMPHP 7.0 -- -- MONOP 8.0 -- -- BASOP 0.0 -- -- ABSNEUT 10.25* -- -- ABSMONO 1.00* -- -- ABSEOSIN 0.00 -- -- ABSBASO 0.00 -- -- GLUC -- -- 158* BUN -- -- 24* CREAT -- -- 0.83 NA -- -- 134* K -- -- 4.0 CHLOR -- -- 100 CO2 -- -- 26 TPROT -- -- 5.1* 4.9* ALB -- -- 2.6* 2.7* CA -- -- 8.8 ALKPHOS -- -- 200* 201* TBILI -- -- 0.8 0.8 AST -- -- 38* 33 ALT -- -- 53* 54* PTSEC -- 21.0* 24.6* INR -- 2.1* 2.5* Serum alpha-1 antitrypsin level 07/18/2022- 124 mg per deciliter Urine histo antigen + 03/08/2023 Serum histoplasma antibody positive agent M band 03/08/[address] QuantiFERON gamma test negative CT abdomen and pelvis/03/14 Mild fatty infiltration of the liver. Pneumatosis in the wall of the ascending and proximal to mid transverse colon improving. 2. Air is seen tracking into the mesocolon and this is improving as well. 3. Cause for pneumatosis is not readily apparent. No obvious vascular occlusion is evident. 4. Mild splenomegaly. 5. Fatty infiltration in the liver. CT abdomen and pelvis 03/19/2023 Abnorma (more content not included)... [facility] 03-23-2023 Note HNO ID: [id number] Author: SHARAN RIVAS MD Service: Hospital Medicine Author Type: Physician Type: Progress Notes Filed: 03/23/2023 12:06 Note Text: DEPARTMENT OF HOSPITAL MEDICINE PROGRESS NOTE Hospital Medicine/Primary Attending: Sharan Rivas MD NIGHT AND WEEKEND COVERAGE: Before 7 pm please page Team color pager After 7pm please page [phone] MEDICATIONS: Current Facility-Administered Medications Medication Dose Route Frequency NaCl 0.9% iv flush bag 20 mL INTRAVENOUS PRN tiotropium bromide 2.5 mcg/actuation 2 Puff (SPIRIVA RESPIMAT) 2 Puff INHALATION DAILY gabapentin 300 mg cap(s) (NEURONTIN) 300 mg ORAL BID albuterol HFA 90 mcg/actuation 2 Puff (PROVENTIL HFA, VENTOLIN HFA) 2 Puff INHALATION q [address] 40 mg tab(s) (PROTONIX) 40 mg ORAL DAILY (6 AM) acetaminophen 975 mg tab(s) (TYLENOL) 975 mg ORAL QID ondansetron 4 mg tab(s) (ZOFRAN) 4 mg ORAL q 6 H PRN Or ondansetron (PF) 4 mg injection (ZOFRAN) 4 mg INTRAVENOUS q 6 H PRN oxyCODONE IR 5 mg tab(s) (ROXICODONE) 5 mg ORAL q 4 H PRN dexAMETHasone (DECADRON) tab(s) 6 mg 6 mg ORAL DAILY WITH BREAKFAST mometasone-formoterol 100-5 mcg/actuation 2 Puff inhaler (DULERA) 2 Puff INHALATION BID sodium chloride 0.9 % (flush) 2-10 mL (BD POSIFLUSH) 2-10 mL INTRAVENOUS DIRECTED PRN And perflutren lipid microspheres 1.1 mg/mL 1.3 mL injection (DEFINITY) 1.3 mL INTRAVENOUS DIRECTED PRN itraconazole 200 mg oral liquid (SPORANOX) 200 mg ORAL TID itraconazole 200 mg oral liquid (SPORANOX) 200 mg ORAL BID phenol 1 [place] (CHLORASEPTIC) 1 [place] MUCOUS MEMBRANE (TOPICAL MOUTH AND THROAT) q 2 H PRN enoxaparin 40 mg injection (LOVENOX) 40 mg SUBCUTANEOUS q 24 HR iv contrast (radiology procedure) INTRAVENOUS DIRECTED PRN ciprofloxacin HCl 500 mg tab(s) (CIPRO) 500 mg ORAL q 12 H 6a/6p metroNIDAZOLE 500 mg tab(s) (FLAGYL) 500 mg ORAL q 8 H DATA: Diagnostic tests reviewed for today's visit: CBC, Coags, BMP, Mg, Phos Recent Labs 03/23/23 0235 03/23/23 0231 03/22/23 0325 03/21/23 0632 03/21/23 0425 03/20/23 1110 WBC 12.50* -- 10.53 -- 6.94 -- HB 7.7* -- 8.1* -- 8.6* -- HCT 22.8* -- 23.1* -- 25.9* -- PLT 157 -- 148* -- 148* -- INR -- 2.1* 2.5* -- 3.9* 4.7* NA -- -- 134* 130* -- 128* K -- -- 4.0 4.5 -- 4.3 CHLOR -- -- 100 97 -- 95* CO2 -- -- 26 26 -- 25 BUN -- -- 24* 19 -- 20 CREAT -- -- 0.83 0.93 -- 0.86 GLUC -- -- 158* 162* -- 84 CA -- -- 8.8 8.5 -- 8.3* Liver Function, Amylase, AND Lipase Recent Labs 03/22/23 1356 03/22/23 0325 03/21/23 0632 03/20/23 1110 TPROT -- 5.1* 4.9* 5.0* 4.7* ALB -- 2.6* 2.7* 2.8* 2.6* ALT -- 53* 54* 62* 65* AST -- 38* 33 42* 55* ALKPHOS -- 200* 201* 215* 207* TBILI -- 0.8 0.8 0.6 0.7 LACT 1.7 -- -- -- Cardiac Enzymes Glom Filtration Rate GWEN, and AA CARDIAC: No results for input(s): PBNP in the last 168 hours. Problem List Pneumatosis intestinalis (POA: Yes) Rheumatoid arthritis (HCC) (POA: Yes) Aortic valve stenosis (POA: Yes) COVID-19 (POA: Status not on file) Hemoptysis (POA: Status not on file) Gram-negative infection (POA: Status not on file) Anaerobic bacterial infection (POA: Status not on file) History of immunosuppressive therapy (POA: Status not on file) History of penicillin allergy (POA: Status not on file) Counseling, unspecified (POA: Status not on file) Encounter for long-term (current) use of antibiotics (POA: Status not on file) Histoplasmosis (POA: Status not on file) PHYSICAL EXAM: BP 105/58 Pulse 84 Temp (Src) 97.5 (Oral) Resp 18 Ht 5' 3 (1.60m) Wt 121 lb (54.9kg) SpO2 97% BMI 21.44 kg/(m2). O2 Therapy: Room Air Follow up : Pt seen and examined at the bedside. No active complaints or overnight events. Improved cough. BP: 105/58 Temp: 36.4 ?C (97.5 ?F) Temp src: Oral Pulse: 84 Resp: 18 O2 Therapy: Room Air SpO2: 97 % Constitutional - Vitals as above, NAD Respiratory - Clear to auscultate both sides. No crackles, wheezes or rales, No labored breathing noted CVS-systolic murmur more pronounced on the right parasternal border GI- NTND, bowel sounds normally heard Recent Labs 03/23/23 0235 03/23/23 0231 03/22/23 0325 03/21/23 0632 03/21/23 0425 03/20/23 1110 WBC 12.50* -- 10.53 -- 6.94 -- HB 7.7* -- 8.1* -- 8.6* -- PLT 157 -- 148* -- 148* -- BUN -- -- 24* 19 -- 20 CREAT -- -- 0.83 0.93 -- 0.86 ANION -- -- 8* 7* -- 8* CO2 -- -- 26 26 -- 25 NA -- -- 134* 130* -- 128* K -- -- 4.0 4.5 -- 4.3 CHLOR -- -- 100 97 -- 95* CA -- -- 8.8 8.5 -- 8.3* GLUC -- -- 158* 162* -- 84 ALB -- -- 2.6* 2.7* 2.8* -- 2.6* TBILI -- -- 0.8 0.8 0.6 -- 0.7 AST -- -- 38* 33 42* -- 55* ALT -- -- 53* 54* 62* -- 65* INR -- 2.1* 2.5* -- 3.9* 4.7* PTSEC -- 21.0* 24.6* -- 37.0* 44.0* TPROT -- -- 5.1* 4.9* 5.0* -- 4.7* Assessment and plan: Haydee Bustamante is a 77-year-old with RA on Humira, HTN, disseminated histoplasmosis, and VTE on (more content not included)... [facility] 03-22-2023 Note HNO ID: [id number] Author: GENO BURGER MD Service: Infectious Disease Author Type: Physician Type: Progress Notes Filed: 03/22/2023 18:27 Note Text: Progress INFECTIOUS DISEASE 03/22 at 1420 ASSESSMENT: #1-Starting to feel better-recurrent or possibly new infection of pulmonary histoplasmosis possibly recurrent disseminated as the asymptomatic pneumatosis intestinalis may possibly be histo invasion she had positive biopsy of the colon years ago. Just started itraconazole treatment which we will continue here due to her immunosuppression. No hemoptysis overnight #2-COVID positivity although no severe hypoxia but due to her immunosuppressive status we will do remdesivir while here for 3 days and 10 days dexamethasone. Doing much better, room air, talking quite a bit without any distress and is feeling much stronger #3-history of immunosuppressive therapy-Humira and methotrexate for rheumatoid arthritis control #4-history of histoplasmosis and now positive testing again #5-extensive discussion with the patient but also the pulmonary service who was doing appropriate care for antimicrobials #6-antibiotic monitoring-tolerates #7-pneumatosis intestinalis completely asymptomatic. Possibly from the severe coughing allowing pneumoperitoneum and pneumatosis intestinalis although I cannot rule out that the intestinalis is not from histoplasma invasion since she had that a few years ago #8-penicillin allergy but cephalosporins tolerated RECOMMENDATIONS: -When others ready for discharge, she will need to go on the itraconazole solution 200 mg p.o. twice daily as she has had that before and it is absorbed better with a proton pump inhibitor -The oral Cipro which I will convert the IV to will be 500 mg p.o. twice daily with metronidazole 500 mg p.o. 3 times daily for 7 days total through March 26 because of the pneumatosis intestinalis which may allow gut translocation. -Discontinue remdesivir after 3 days as a treatment/prophylaxis for immunosuppressed patient who did not have invasive severe disease -10 days dexamethasone here and home -Patient can call my office at [phone] to get an appointment for about 3 months for histoplasma follow-up ROS/interval history 03/21-states she is worse at its wooziness and just some weakness. She is not coughing up blood and did not complain of abdomen problems. No medication complaints. Wanted to know why she was on itraconazole liquid instead of capsules but I told her it is because of her acid suppression the liquid will absorb much better she was okay with that.. No fevers, chills, myalgias, acute joint changes, abdominal complaints 2/-feeling stronger. Cough is somewhat less. Has sore hoarse throat but she has been having that and is relieved by topical therapy. No itraconazole complaints. Not getting worse or losing taste or smell. No shortness of breath on room air. Fevers or chills SUBJECTIVE: HPI: 77 year old female , longtime rheumatoid arthritis patient on Humira and at some point methotrexate, history of prior disseminated histoplasmosis-including colonic biopsy positivity, 1 year of itraconazole and did well stopping around February 2019. Also COPD not dependent on oxygen warfarin for recurrent lower extremity DVT, presented to [facility] 03/[facility] for hemoptysis, going to the [place] ED but then sent here due to pneumoperitoneum. Patient states she has had increased cough and some sputum since early January. She had perhaps a little bit more fatigue. She was getting every 6-month chest CTs due to her prior disseminated histoplasmosis and continued need of immunosuppression, and the February CT had increased images consisting of innumerable micronodules throughout the lungs leading differential was disseminated histoplasmosis versus miliary TB or other disseminated fungal infection possibly viral bronchiolitis or pneumonitis and that was February 22. She had unchanged bronchiectasis in the lingula and middle lobe. The pulmonology group appropriately sent off histoplasma studies which multiple ones were positive, including the histo urine antigen to 2.8 which is far higher than the 0.6+ of the last outpatient ID note in 2019. Appropriately started itraconazole and although the patient was serena enough to get solution the first time which is better absorbed and supposedly gets better levels, the patient wanted capsules and she has been on them for possibly 2 to 3 days. Interestingly, no fevers, chills, myalgias, shortness of breath, nausea or vomiting or diarrhea. She has had the increasing cough and some sputum and woke up with a glob of bright red blood mixed in with the sputum and since she is on warfarin appropriately went to the ED where they found other issues. Patient was also found out to be COVID-positive. Interestingly a CAT scan at [place] found pneumatosis intestinalis and intraperitoneal free air comp (more content not included)... [facility] 03-22-2023 Note HNO ID: [id number] Author: MAGAN COURTNEY DO Service: Pulmonary Disease Author Type: Physician Type: Progress Notes Filed: 03/22/2023 16:08 Note Text: Attending Note I evaluated the patient and personally participated in the jim components. I agree with the resident's findings and plan as documented and have discussed the case and management of the patient's care with the resident. Patient awake and alert. Afebrile. On room air. Appreciate infectious disease evaluation. Day 4 metronidazole, ciprofloxacin. Started on itraconazole, day 3. On dexamethasone and remdesivir day 3. States she feels better. No further hemoptysis Patient afebrile. On room air. In no respiratory distress. She states that she did have some hallucinations last night and earlier this morning. She did take out her IV. No plans for surgery. Patient tolerating diet. History of present illness: Mrs. Bustamante is a pleasant 77-year-old woman with a complex medical history. She has a history of disseminated histoplasmosis. She is followed in [place], [place]. She has a history of previous disseminated histoplasmosis. This was found in 2019 on colon biopsy. She has diffuse pulmonary changes with reticular nodular changes. They are planning on starting her on itraconazole in the near future once again. However she states that she has been having a sore throat for about the last 6 weeks. She presented to the emergency room at [place] after a vigorous coughing episode and coughing up about a tablespoon of bright red blood. She states that this is subsided. She is on Coumadin. It was noted that her INR was elevated. She denies shortness of breath, wheezing. She is bringing up some sputum but does not believe she is coughing up any more blood. She denies fevers, chills, or night sweats. She denies significant weight loss. She denies chest pain or palpitations. Was seen on CAT scan of the abdomen that she has a pneumoperitoneum. Also had findings consistent with pneumatosis intestinalis. She quit smoking cigarettes in 1989. Prior to this smoked about a pack a day for 20 years. She denies use of alcohol or illicit drugs. 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 She does not not have exposure to farm animals as far she knows. No history of bat exposure [place] She denies orthopnea or paroxysmal nocturnal dyspnea. She denies wheezing. Denies shortness of breath with exertion. She does admit to about a 7 pound weight loss over the last 2 weeks due to her sore throat. PHYSICAL EXAMINATION: Head: Normocephalic, no masses, lesions, tenderness or abnormalities Eyes: Anicteric sclera. Pupils are equally round and reactive to light. Extraocular movements are intact. Changes from bilateral lens implants Oropharynx: Lips, mucosa, and tongue normal, teeth and gums normal, oropharynx normal. Class II Mallampati oropharynx Neck: Supple, no adenopathy; thyroid symmetric, normal size, no bruits Lungs: Inspiratory crackles at the lung bases more so left lung base.. Inspiratory crackles noted anteriorly as well. Heart: Regular rate and rhythm with grade 3/6 systolic murmur heard best at the right second intercostal space Abdomen: Abdomen soft, non-tender. Bowel sounds normal. No masses, organomegaly Extremities: No deformities, edema, skin discoloration, clubbing or cyanosis. Good capillary refill. LABS: Recent Labs 03/22/23 0325 WBC 10.53 RBC 2.96* HB 8.1* HCT 23.1* MCV 78.0* PLT 148* GLUC 158* BUN 24* CREAT 0.83 NA 134* K 4.0 CHLOR 100 CO2 26 TPROT 4.9* ALB 2.7* CA 8.8 ALKPHOS 201* TBILI 0.8 AST 33 ALT 54* PTSEC 24.6* INR 2.5* Serum alpha-1 antitrypsin level 07/18/2022- 124 mg per deciliter Urine histo antigen + 03/08/2023 Serum histoplasma antibody positive agent M band 03/08/[address] QuantiFERON [address] abdomen and pelvis/03/14 Mild fatty infiltration of the liver. Pneumatosis in the wall of the ascending and proximal to mid transverse colon improving. 2. Air is seen tracking into the mesocolon and this is improving as well. 3. Cause for pneumatosis is not readily apparent. No obvious vascular occlusion is evident. 4. Mild splenomegaly. 5. Fatty infiltration in the liver. CT abdomen and pelvis 03/19/2023 Abnormal appearance of the transverse colon as described with evidence of pneumatosis in the wall of the colon especially along its proximal portion in the region of the hepatic flexure. An inflammatory process versus a possible vascular compromise should be ruled out. Free intraperitoneal air. Sigmoid diverticulosis with mild degree inflammatory changes in the sigmoid mesocolon. Sludge and possible tiny gallstones in the gallbladder lumen. ABG: Blood sent Positive PCR for COVID-19 supposedly reported from [facility]. Chest and abdomen/pelvis reviewed CTA chest 03/19/2023 No pulmonary embolism Prominent reticular no (more content not included)... [facility] 03-22-2023 Note HNO ID: [id number] Author: YAN PEREZ DO Service: General Surgery Author Type: Resident Type: Plan of Care Filed: 03/22/2023 13:53 Note Text: Plan of Care Imaging reviewed and CTAP showed improved pneumatosis of ascending/transverse colon. Abdominal exam remains benign and there are no peritoneal signs and clinically, she denies symptoms. Vitals are all stable. Believe this pneumatosis is secondary to her lung disease. No need for surgical intervention. Will sign off. Please reach out with questions/concerns. BP 91/64 Pulse 105 Temp 36.7 ?C (98.1 ?F) (Oral) Resp 20 Ht 160 cm (5' 3 ) Wt 54.9 kg (121 lb) SpO2 97% BMI 21.43 kg/m? Yan Perez DO 03/22/2023 1:52 PM] [facility] 03-22-2023 Note HNO ID: [id number] Author: JOSE LUIS CRISTOBAL DO Service: General Surgery Author Type: Resident Type: Plan of Care Filed: 03/22/2023 13:52 Note Text: CT Scan ordered and reviewed. Still without any abdominal pain, tolerating diet. Pneumatosis intestinalis improving Surgery will sign off. Please call with questions Emergency General Surgery Service Pager: For questions or concerns Mon-Fri 6a-5p please page [phone]. After 5pm and on Weekends and Holidays, please page [phone] if in ICU or [phone] if on RNF. [facility] 03-22-2023 Note HNO ID: [id number] Author: SHARAN RIVAS MD Service: Hospital Medicine Author Type: Physician Type: Progress Notes Filed: 03/23/2023 09:28 Note Text: DEPARTMENT OF HOSPITAL MEDICINE PROGRESS NOTE Hospital Medicine/Primary Attending: Sharan Rivas MD NIGHT AND WEEKEND COVERAGE: Before 7 pm please page Team color pager After 7pm please page [phone] MEDICATIONS: Current Facility-Administered Medications Medication Dose Route Frequency ciprofloxacin iv piggyback 400 mg in D5W 200 mL (CIPRO) 400 mg INTRAVENOUS q 12 H metroNIDAZOLE iv piggyback 500 mg in NaCl (iso-osmotic) 100 mL (FLAGYL) 500 mg INTRAVENOUS q 8 H NaCl 0.9% iv flush bag 20 mL INTRAVENOUS PRN tiotropium bromide 2.5 mcg/actuation 2 Puff (SPIRIVA RESPIMAT) 2 Puff INHALATION DAILY gabapentin 300 mg cap(s) (NEURONTIN) 300 mg ORAL BID albuterol HFA 90 mcg/actuation 2 Puff (PROVENTIL HFA, VENTOLIN HFA) 2 Puff INHALATION q [address] 40 mg tab(s) (PROTONIX) 40 mg ORAL DAILY (6 AM) acetaminophen 975 mg tab(s) (TYLENOL) 975 mg ORAL QID ondansetron 4 mg tab(s) (ZOFRAN) 4 mg ORAL q 6 H PRN Or ondansetron (PF) 4 mg injection (ZOFRAN) 4 mg INTRAVENOUS q 6 H PRN oxyCODONE IR 5 mg tab(s) (ROXICODONE) 5 mg ORAL q 4 H PRN dexAMETHasone (DECADRON) tab(s) 6 mg 6 mg ORAL DAILY WITH BREAKFAST mometasone-formoterol 100-5 mcg/actuation 2 Puff inhaler (DULERA) 2 Puff INHALATION BID sodium chloride 0.9 % (flush) 2-10 mL (BD POSIFLUSH) 2-10 mL INTRAVENOUS DIRECTED PRN And perflutren lipid microspheres 1.1 mg/mL 1.3 mL injection (DEFINITY) 1.3 mL INTRAVENOUS DIRECTED PRN itraconazole 200 mg oral liquid (SPORANOX) 200 mg ORAL TID [START ON 03/23/2023] itraconazole 200 mg oral liquid (SPORANOX) 200 mg ORAL BID phenol 1 [place] (CHLORASEPTIC) 1 [place] MUCOUS MEMBRANE (TOPICAL MOUTH AND THROAT) q 2 H PRN enoxaparin 40 mg injection (LOVENOX) 40 mg SUBCUTANEOUS q 24 HR iv contrast (radiology procedure) INTRAVENOUS DIRECTED PRN And enteric contrast (radiology procedure) ORAL DIRECTED PRN DATA: Diagnostic tests reviewed for today's visit: CBC, Coags, BMP, Mg, Phos Recent Labs 03/22/23 0325 03/21/23 0632 03/21/23 0425 03/20/23 1110 03/20/23 0416 WBC 10.53 -- 6.94 -- 5.06 HB 8.1* -- 8.6* -- 8.1* HCT 23.1* -- 25.9* -- 24.6* PLT 148* -- 148* -- 126* INR 2.5* -- 3.9* 4.7* 5.7* NA 134* 130* -- 128* 128* K 4.0 4.5 -- 4.3 3.9 CHLOR 100 97 -- 95* 96* CO2 26 26 -- 25 24 BUN 24* 19 -- 20 25* CREAT 0.83 0.93 -- 0.86 0.84 GLUC 158* 162* -- 84 77 CA 8.8 8.5 -- 8.3* 8.4* Liver Function, Amylase, AND Lipase Recent Labs 03/22/23 0325 03/21/23 0632 03/20/23 1110 03/19/23 1921 TPROT 4.9* 5.0* 4.7* -- ALB 2.7* 2.8* 2.6* -- ALT 54* 62* 65* -- AST 33 42* 55* -- ALKPHOS 201* 215* 207* -- TBILI 0.8 0.6 0.7 -- LACT -- -- -- 1.2 Cardiac Enzymes Glom Filtration Rate GWEN, and AA CARDIAC: No results for input(s): PBNP in the last 168 hours. Problem List Pneumatosis intestinalis (POA: Yes) Rheumatoid arthritis (HCC) (POA: Yes) Aortic valve stenosis (POA: Yes) COVID-19 (POA: Status not on file) Hemoptysis (POA: Status not on file) Gram-negative infection (POA: Status not on file) Anaerobic bacterial infection (POA: Status not on file) History of immunosuppressive therapy (POA: Status not on file) History of penicillin allergy (POA: Status not on file) Counseling, unspecified (POA: Status not on file) Encounter for long-term (current) use of antibiotics (POA: Status not on file) Histoplasmosis (POA: Status not on file) PHYSICAL EXAM: BP 91/64 Pulse 105 Temp (Src) 98.1 (Oral) Resp 20 Ht 5' 3 (1.60m) Wt 121 lb (54.9kg) SpO2 97% BMI 21.44 kg/(m2). O2 Therapy: Room Air Follow up : Pt seen and examined at the bedside. Reported improved breathing with no abdominal pain. No more episode of hemoptysis. BP: 91/64 Temp: 36.7 ?C (98.1 ?F) Temp src: Oral Pulse: 105 Resp: 20 O2 Therapy: Room Air SpO2: 97 % Constitutional - Vitals as above, NAD Respiratory - Clear to auscultate both sides. No crackles, wheezes or rales, No labored breathing noted CVS-systolic murmur more pronounced on the right parasternal border GI- NTND, bowel sounds normally heard Recent Labs 03/22/23 0325 03/21/23 0632 03/21/23 0425 03/20/23 1110 03/20/23 0416 03/19/23 1921 WBC 10.53 -- 6.94 -- 5.06 7.48 HB 8.1* -- 8.6* -- 8.1* 9.6* PLT 148* -- 148* -- 126* 144* BUN 24* 19 -- 20 25* 27* CREAT 0.83 0.93 -- 0.86 0.84 0.88 ANION 8* 7* -- 8* 8* 8* CO2 26 26 -- 25 24 25 NA 134* 130* -- 128* 128* 128* K 4.0 4.5 -- 4.3 3.9 4.3 CHLOR 100 97 -- 95* 96* 95* CA 8.8 8.5 -- 8.3* 8.4* 8.9 GLUC 158* 162* -- 84 77 87 ALB 2.7* 2.8* -- 2.6* -- -- TBILI 0.8 0.6 -- 0.7 -- -- AST 33 42* -- 55* -- -- ALT 54* 62* -- 65* -- -- INR 2.5* -- 3.9* 4.7* 5.7* >8.0* PTSEC 24.6* -- 37.0* 44.0* 52.4* 76.9* TPROT 4.9* 5.0* -- 4.7* -- -- Assessment and plan: Haydee Weber (more content not included)... [facility] 03-21-2023 Note HNO ID: [id number] Author: GENO BURGER MD Service: Infectious Disease Author Type: Physician Type: Progress Notes Filed: 03/21/2023 17:19 Note Text: Aggress note INFECTIOUS DISEASE 03/21 at 1420 ASSESSMENT: #1-recurrent or possibly new infection of pulmonary histoplasmosis possibly recurrent disseminated as the asymptomatic pneumatosis intestinalis may possibly be histo invasion she had positive biopsy of the colon years ago. Just started itraconazole treatment which we will continue here due to her immunosuppression. No hemoptysis overnight #2-COVID positivity although no severe hypoxia but due to her immunosuppressive status we will do remdesivir while here for 3 to 5 days and 10 days dexamethasone. Currently no shortness of breath but is woozy and just malaised worse than yesterday #3-history of immunosuppressive therapy-Humira and methotrexate for rheumatoid arthritis control #4-history of histoplasmosis and now positive testing again #5-extensive discussion with the patient but also the pulmonary service who was doing appropriate care for antimicrobials #6-antibiotic monitoring-tolerates #7-pneumatosis intestinalis completely asymptomatic. Agree with Cipro metronidazole for now and may just do a short course of therapy #8-penicillin allergy but cephalosporins tolerated RECOMMENDATIONS: -Itraconazole solution, remdesivir, dexamethasone, Cipro, metronidazole and follow-up -Recheck chest x-ray in a.m. ROS/interval history 03/21-states she is worse at its wooziness and just some weakness. She is not coughing up blood and did not complain of abdomen problems. No medication complaints. Wanted to know why she was on itraconazole liquid instead of capsules but I told her it is because of her acid suppression the liquid will absorb much better she was okay with that.. No fevers, chills, myalgias, acute joint changes, abdominal complaints SUBJECTIVE: HPI: 77 year old female , longtime rheumatoid arthritis patient on Humira and at some point methotrexate, history of prior disseminated histoplasmosis-including colonic biopsy positivity, 1 year of itraconazole and did well stopping around February 2019. Also COPD not dependent on oxygen warfarin for recurrent lower extremity DVT, presented [facility] 03[facility] for hemoptysis, going to the [place] ED but then sent here due to pneumoperitoneum. Patient states she has had increased cough and some sputum since early January. She had perhaps a little bit more fatigue. She was getting every 6-month chest CTs due to her prior disseminated histoplasmosis and continued need of immunosuppression, and the February CT had increased images consisting of innumerable micronodules throughout the lungs leading differential was disseminated histoplasmosis versus miliary TB or other disseminated fungal infection possibly viral bronchiolitis or pneumonitis and that was February 22. She had unchanged bronchiectasis in the lingula and middle lobe. The pulmonology group appropriately sent off histoplasma studies which multiple ones were positive, including the histo urine antigen to 2.8 which is far higher than the 0.6+ of the last outpatient ID note in 2019. Appropriately started itraconazole and although the patient was serena enough to get solution the first time which is better absorbed and supposedly gets better levels, the patient wanted capsules and she has been on them for possibly 2 to 3 days. Interestingly, no fevers, chills, myalgias, shortness of breath, nausea or vomiting or diarrhea. She has had the increasing cough and some sputum and woke up with a glob of bright red blood mixed in with the sputum and since she is on warfarin appropriately went to the ED where they found other issues. Patient was also found out to be COVID-positive. Interestingly a CAT scan at [place] found pneumatosis intestinalis and intraperitoneal free air completely asymptomatic. To go evaluation list small amount of air on CAT scan, normal white count, benign abdominal exam. Cipro metronidazole was started in case of bacterial infection in this area. Discussed the case with pulmonary who will put her on remdesivir and dexamethasone for the COVID in immunosuppressed patient with another underlying lung disease. We are starting itraconazole solution since patient is on a proton pump inhibitor. Penicillin allergy listed as hives. There are multiple cephalosporin listings in 2018 so she must tolerate those Active Antimicrobials (From admission, onward) Start Stop 03/23/23 2100 itraconazole 200 mg oral liquid (SPORANOX) 200 mg, ORAL, 2 TIMES DAILY -- 03/21/23 1000 remdesivir in NaCl 0.9% Vial-Mate/ADD-[place] 100 mg 275 mL 100 mg, INTRAVENOUS, EVERY 24 HOURS See [facility] for full Linked Orders Report. 03/23/23 0959 03/20/23 1300 itraconazole 200 mg oral liquid (SPORANOX) 200 mg, ORAL, 3 TIMES DAILY 03/23/23 1259 03/19/23 2000 cipro (more content not included)... [facility] 03-21-2023 Note HNO ID: [id number] Author: PAMELA HALL MD Service: General Surgery Author Type: Physician Type: Progress Notes Filed: 03/22/2023 07:10 Note Text: Emergency General Surgery Progress Note SERVICE DATE: March 21, 2023 Emergency General Surgery Service Pager: For questions or concerns Mon-Fri 6a-5p please page [phone]. After 5pm and on Weekends and Holidays, please page [phone] if in ICU or [phone] if on RNF. SUBJECTIVE: NAEON. AF and HDS. Tolerating diet w/o N/V. She denies pain. OBJECTIVE: Vitals: No data recorded. BP 125/68 Pulse 75 Temp 36.8 ?C (98.3 ?F) (Oral) Resp 18 Ht 160 cm (5' 3 ) Wt 54.9 kg (121 lb) SpO2 96% BMI 21.43 kg/m? O2 Therapy: Room Air IANDO: Date 03/20/23 07 - 03/21/23 0659 03/21/23 07 - 03/22/23 0659 Shift [id number] 24 Hour Total 8237-1210 1025-1733 9061-0335 24 Hour Total INTAKE IV 1275 1275 100 100 Volume (mL) (ciprofloxacin iv piggyback 400 mg in D5W 200 mL (CIPRO)) 200 200 Volume (mL) (metroNIDAZOLE iv piggyback 500 mg in NaCl (iso-osmotic) 100 mL (FLAGYL)) 200 200 100 100 Volume (mL) (remdesivir 200 mg in NaCl 0.9% 275 mL) 275 275 Volume (mL) (lactated ringers iv infusion) 600 600 Shift Total 1275 1275 100 100 OUTPUT Shift Total Weight (kg) 54.9 54.9 54.9 54.9 54.9 54.9 54.9 54.9 MEDICATIONS Current Facility-Administered Medications Medication Dose Route Frequency remdesivir in NaCl 0.9% Vial-Mate/ADD-[place] 100 mg 275 mL 100 mg INTRAVENOUS q 24 HR dexAMETHasone 6 mg tab(s) (DECADRON) 6 mg ORAL DAILY WITH BREAKFAST mometasone-formoterol 100-5 mcg/actuation 2 Puff inhaler (DULERA) 2 Puff INHALATION BID sodium chloride 0.9 % (flush) 2-10 mL (BD POSIFLUSH) 2-10 mL INTRAVENOUS DIRECTED PRN And perflutren lipid microspheres 1.1 mg/mL 1.3 mL injection (DEFINITY) 1.3 mL INTRAVENOUS DIRECTED PRN itraconazole 200 mg oral liquid (SPORANOX) 200 mg ORAL TID phenol 1 [place] (CHLORASEPTIC) 1 [place] MUCOUS MEMBRANE (TOPICAL MOUTH AND THROAT) q 2 H PRN ciprofloxacin iv piggyback 400 mg in D5W 200 mL (CIPRO) 400 mg INTRAVENOUS q 12 H metroNIDAZOLE iv piggyback 500 mg in NaCl (iso-osmotic) 100 mL (FLAGYL) 500 mg INTRAVENOUS q 8 H NaCl 0.9% iv flush bag 20 mL INTRAVENOUS PRN tiotropium bromide 2.5 mcg/actuation 2 Puff (SPIRIVA RESPIMAT) 2 Puff INHALATION DAILY gabapentin 300 mg cap(s) (NEURONTIN) 300 mg ORAL BID albuterol HFA 90 mcg/actuation 2 Puff (PROVENTIL HFA, VENTOLIN HFA) 2 Puff INHALATION q [address] 40 mg tab(s) (PROTONIX) 40 mg ORAL DAILY (6 AM) acetaminophen 975 mg tab(s) (TYLENOL) 975 mg ORAL QID ondansetron 4 mg tab(s) (ZOFRAN) 4 mg ORAL q 6 H PRN Or ondansetron (PF) 4 mg injection (ZOFRAN) 4 mg INTRAVENOUS q 6 H PRN oxyCODONE IR 5 mg tab(s) (ROXICODONE) 5 mg ORAL q 4 H PRN Labs: Recent Labs 03/21/23 0632 03/21/23 0425 03/20/23 1110 03/20/23 0416 03/19/23 1921 NA 130* -- 128* 128* 128* K 4.5 -- 4.3 3.9 4.3 CHLOR 97 -- 95* 96* 95* CO2 26 -- 25 24 25 BUN 19 -- 20 25* 27* CREAT 0.93 -- 0.86 0.84 0.88 GLUC 162* -- 84 77 87 ANION 7* -- 8* 8* 8* CA 8.5 -- 8.3* 8.4* 8.9 ALB 2.8* -- 2.6* -- -- AST 42* -- 55* -- -- ALT 62* -- 65* -- -- ALKPHOS 215* -- 207* -- -- TBILI 0.6 -- 0.7 -- -- WBC -- 6.94 -- 5.06 7.48 HB -- 8.6* -- 8.1* 9.6* HCT -- 25.9* -- 24.6* 29.2* PLT -- 148* -- 126* 144* LACT -- -- -- -- 1.2 INR -- 3.9* 4.7* 5.7* >8.0* Physical Exam: GENERAL: No distress, Alert NEURO: AANDOx3, CN II-XII grossly intact HEENT: normocephalic, atraumatic LUNGS: Unlabored breathing CARDIAC: Regular rate and rhythm as above ABDOMEN: Soft, non-tender, non-distended EXTREMITIES: ZAPATA, No deformities, No edema SKIN: Skin color, texture, turgor normal, No rashes or lesions ASSESSMENT AND PLAN: Assessment Active Hospital Problems Diagnosis Date Noted Pneumatosis intestinalis 03/19/2023 COVID-19 03/20/2023 Hemoptysis 03/20/2023 Gram-negative infection 03/20/2023 Anaerobic bacterial infection 03/20/2023 History of immunosuppressive therapy 03/20/2023 History of penicillin allergy 03/20/2023 Counseling, unspecified 03/20/2023 Encounter for long-term (current) use of antibiotics 03/20/2023 Histoplasmosis 03/20/2023 Aortic valve stenosis 04/26/2018 Rheumatoid arthritis (HCC) 03/07/2015 Overview Note: Dr. 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 CTAP had an incidental finding of a small amount of intraperitoneal air and pneumatosis in the colon. INR on arrival to [place] was 9. She given Vitamin K and transferred here. Hospital Course/Operations/Procedures: * No surgery found * Plan: Pneumatosis intestinalis and intraperitoneal free air - labs and imaging reviewed - Small amount of air on (more content not included)... [facility] 03-21-2023 Note HNO ID: [id number] Author: MAGAN COURTNEY DO Service: Pulmonary Disease Author Type: Physician Type: Progress Notes Filed: 03/21/2023 08:51 Note Text: Attending Note I evaluated the patient and personally participated in the jim components. I agree with the resident's findings and plan as documented and have discussed the case and management of the patient's care with the resident. Patient awake and alert. Afebrile. On room air. Appreciate infectious disease evaluation. Day 2 metronidazole, ciprofloxacin. Started on itraconazole. On dexamethasone and remdesivir day 2. States she feels better. No further hemoptysis History of present illness: Mrs. Bustamante is a pleasant 77-year-old woman with a complex medical history. She has a history of disseminated histoplasmosis. She is followed in [place], [place]. She has a history of previous disseminated histoplasmosis. This was found in 2019 on colon biopsy. She has diffuse pulmonary changes with reticular nodular changes. They are planning on starting her on itraconazole in the near future once again. However she states that she has been having a sore throat for about the last 6 weeks. She presented to the emergency room at [place] after a vigorous coughing episode and coughing up about a tablespoon of bright red blood. She states that this is subsided. She is on Coumadin. It was noted that her INR was elevated. She denies shortness of breath, wheezing. She is bringing up some sputum but does not believe she is coughing up any more blood. She denies fevers, chills, or night sweats. She denies significant weight loss. She denies chest pain or palpitations. Was seen on CAT scan of the abdomen that she has a pneumoperitoneum. Also had findings consistent with pneumatosis intestinalis. She quit smoking cigarettes in 1989. Prior to this smoked about a pack a day for 20 years. She denies use of alcohol or illicit drugs. 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 She does not not have exposure to farm animals as far she knows. [place] history of [place] She denies orthopnea or paroxysmal nocturnal dyspnea. She denies wheezing. Denies shortness of breath with exertion. She does admit to about a 7 pound weight loss over the last 2 weeks due to her sore throat. PHYSICAL EXAMINATION: Head: Normocephalic, no masses, lesions, tenderness or abnormalities Eyes: Anicteric sclera. Pupils are equally round and reactive to light. Extraocular movements are intact. Changes from bilateral lens implants Oropharynx: Lips, mucosa, and tongue normal, teeth and gums normal, oropharynx normal. Class II Mallampati oropharynx Neck: Supple, no adenopathy; thyroid symmetric, normal size, no bruits Lungs: Inspiratory crackles at the lung bases more so left lung base.. Inspiratory crackles noted anteriorly as well. Heart: Regular rate and rhythm with grade 3/6 systolic murmur heard best at the right second intercostal space Abdomen: Abdomen soft, non-tender. Bowel sounds normal. No masses, organomegaly Extremities: No deformities, edema, skin discoloration, clubbing or cyanosis. Good capillary refill. LABS: Recent Labs 03/21/23 0425 03/20/23 1110 WBC 6.94 -- RBC 3.21* -- HB 8.6* -- HCT 25.9* -- MCV 80.7 -- PLT 148* -- GLUC -- 84 BUN -- 20 CREAT -- 0.86 NA -- 128* K -- 4.3 CHLOR -- 95* CO2 -- 25 TPROT -- 4.7* ALB -- 2.6* CA -- 8.3* ALKPHOS -- 207* TBILI -- 0.7 AST -- 55* ALT -- 65* PTSEC 37.0* 44.0* INR 3.9* 4.7* Serum alpha-1 antitrypsin level 07/18/2022 124 Urine histo antigen + 03/08/2023 Serum histoplasma antibody positive agent M band 03/08/2023 CT abdomen and pelvis 03/19/2023 Abnormal appearance of the transverse colon as described with evidence of pneumatosis in the wall of the colon especially along its proximal portion in the region of the hepatic flexure. An inflammatory process versus a possible vascular compromise should be ruled out. Free intraperitoneal air. Sigmoid diverticulosis with mild degree inflammatory changes in the sigmoid mesocolon. Sludge and possible tiny gallstones in the gallbladder lumen. ABG: Blood sent Positive PCR for COVID-19 supposedly reported from [facility]. Chest and abdomen/pelvis reviewed CTA chest 03/19/2023 No pulmonary embolism Prominent reticular nodular pattern in both lungs worse in the upper lobes with left lower lobe and right upper lobe pulmonary nodule. Lymphangitic spread should be ruled out. No evidence of pulmonary embolism. Small amount of free intraperitoneal air. A dedicated CT scan of the pelvis recommended for further evaluation. Echocardiogram 09/22/22 Left ventricle normal in size. Mild LVH Grade 1 left ventricular diastolic dysfunction LVEF 62% Right ventricle normal in size. RVSP 35 mmHg consistent with mild pulmonary hypertension Left atrial cavity severely dilated Right atrial cavity normal (more content not included)... [facility] 03-20-2023 Note HNO ID: [id number] Author: SABRA RICHARDSON RN Service: Care Management Author Type: Registered Nurse Type: Care Mgt Initial Assessment Filed: 03/20/2023 16:23 Note Text: CARE MANAGEMENT: ASSESSMENT AND DISCHARGE PLAN SERVICE DATE: March 20, 2023 SERVICE TIME: 4:19 PM PCP: Claudine Durán MD Primary Contact: Extended Emergency Contact Information Primary Emergency Contact: Suzie Gerardo (Stephany) Address: [address] [address] [facility] Relation: Friend Secondary Emergency Contact: Padmini Chang Address: [address] [place], [place] [id number] [place] [address] Mobile Relation: Friend Admission Status: Inpatient Insurance Provider: [employer] PPO Discharge Planning requested by: Per Department Practice Potential Transition Plans Home Advance Directives Current Advance Directive: None 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 Attempted to Assist with AD Completion: Yes Action: Education Provided Current Living Arrangements and Support Lives with: Alone Type of Residence: Private Residence (House) Does the patient have to climb stairs at home?: Yes;stairs outside the home;stairs within the home Support: Friends/neighbors How do you manage to accomplish the following: Independent: Ambulation;Bathe/Shower;Dress;Me als/Meal Prep;Going to the bathroom;Medication Management;Transportation to appointments/community Current Services/Equipment Current Post-Acute Service(s): None Discharge Planning Patient Goal(s): Be able to go home, General wellness, Less pain, Wean off of O2 Cabins of Choice Explained: Cabins of Choice Given: No Reason Not Given: No placements necessary Are you interested in bedside delivery of your medications? No Discharge Planning Participant(s): Patient Patient/Family Comments: Caregiver Assessment: Caregiver is ready, willing and able to meet the patient's needs as recommended by the inter-professional team: No Caregiver needed Transport at Discharge: Transportation Arrangements: Car Needs Prior to Discharge: Needs Prior to Discharge: None Post-Acute Discharge Plan: Per chart review, patient is a 77 year old female former 10 pack year smoker with PMH significant for RA (Humira), HTN, h/o disseminated Histoplasmosis, bronchiectasis, VTE (on coumadin), pulmonary nodules, and presenting to the ED today after an episode of hemoptysis at home. Met with patient at bedside; introduced self and CM role. Prior to admission, patient was independent with ADLs. The patient declined using any assistive equipment. She lives alone but has a lot of friends who are able to assist her if needed. She drives and is active in theater. She has been weak lately for the past couple of days. At this time, the patient has no skilled needs. CM will continue to follow for post-acute needs based on hospital course. The patient will be transported home at d/c by a friend via private auto. SIGNATURE: Sabra Richardson RN PATIENT NAME: Haydee Bustamante DATE: March 20, 2023 TIME: 4:19 PM CONTACT #: [phone] [facility] 03-20-2023 Note HNO ID: [id number] Author: MAGAN COURTNEY DO Service: Pulmonary Disease Author Type: Physician Type: Progress Notes Filed: 03/20/2023 10:25 Note Text: Attending Note I evaluated the patient and personally participated in the jim components. I agree with the resident's findings and plan as documented and have discussed the case and management of the patient's care with the resident. Mrs. Bustamante is a pleasant 77-year-old woman with a complex medical history. She has a history of disseminated histoplasmosis. She is followed in [place], [place]. She has a history of previous disseminated histoplasmosis. This was found in 2019 on colon biopsy. She has diffuse pulmonary changes with reticular nodular changes. They are planning on starting her on itraconazole in the near future once again. However she states that she has been having a sore throat for about the last 6 weeks. She presented to the emergency room at [place] after a vigorous coughing episode and coughing up about a tablespoon of bright red blood. She states that this is subsided. She is on Coumadin. It was noted that her INR was elevated. She denies shortness of breath, wheezing. She is bringing up some sputum but does not believe she is coughing up any more blood. She denies fevers, chills, or night sweats. She denies significant weight loss. She denies chest pain or palpitations. Was seen on CAT scan of the abdomen that she has a pneumoperitoneum. Also had findings consistent with pneumatosis intestinalis. She quit smoking cigarettes in 1989. Prior to this smoked about a pack a day for 20 years. She denies use of alcohol or illicit drugs. 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 She does not not have exposure to farm animals as far she knows. No history of bat exposure [place] She denies orthopnea or paroxysmal nocturnal dyspnea. She denies wheezing. Denies shortness of breath with exertion. She does admit to about a 7 pound weight loss over the last 2 weeks due to her sore throat. PHYSICAL EXAMINATION: Head: Normocephalic, no masses, lesions, tenderness or abnormalities Eyes: Anicteric sclera. Pupils are equally round and reactive to light. Extraocular movements are intact. Changes from bilateral lens implants Oropharynx: Lips, mucosa, and tongue normal, teeth and gums normal, oropharynx normal. Class II Mallampati oropharynx Neck: Supple, no adenopathy; thyroid symmetric, normal size, no bruits Lungs: Inspiratory crackles at the lung bases more so left lung base. Heart: Regular rate and rhythm with grade 3/6 systolic murmur heard best at the right second intercostal space Abdomen: Abdomen soft, non-tender. Bowel sounds normal. No masses, organomegaly Extremities: No deformities, edema, skin discoloration, clubbing or cyanosis. Good capillary refill. LABS: Recent Labs 03/20/23 0416 WBC 5.06 RBC 3.01* HB 8.1* HCT 24.6* MCV 81.7 PLT 126* GLUC 77 BUN 25* CREAT 0.84 NA 128* K 3.9 CHLOR 96* CO2 24 CA 8.4* PTSEC 52.4* INR 5.7* Serum alpha-1 antitrypsin level 07/18/2022 124 Urine histo antigen + 03/08/2023 Serum histoplasma antibody positive agent M band 03/08/2023 CT abdomen and pelvis 03/19/2023 Abnormal appearance of the transverse colon as described with evidence of pneumatosis in the wall of the colon especially along its proximal portion in the region of the hepatic flexure. An inflammatory process versus a possible vascular compromise should be ruled out. Free intraperitoneal air. Sigmoid diverticulosis with mild degree inflammatory changes in the sigmoid mesocolon. Sludge and possible tiny gallstones in the gallbladder lumen. ABG: Blood sent Positive PCR for COVID-19 supposedly reported from [facility]. Chest and abdomen/pelvis reviewed CTA chest 03/19/2023 No pulmonary embolism Prominent reticular nodular pattern in both lungs worse in the upper lobes with left lower lobe and right upper lobe pulmonary nodule. Lymphangitic spread should be ruled out. No evidence of pulmonary embolism. Small amount of free intraperitoneal air. A dedicated CT scan of the pelvis recommended for further evaluation. Echocardiogram 09/22/22 Left ventricle normal in size. Mild LVH Grade 1 left ventricular diastolic dysfunction LVEF 62% Right ventricle normal in size. RVSP 35 mmHg consistent with mild pulmonary hypertension Left atrial cavity severely dilated Right atrial cavity normal in size Moderate mitral annular calcification. Moderate mitral stenosis. +1 mitral regurgitation Mild tricuspid regurgitation Moderately severe aortic stenosis caused by calcified valve with moderate thickening. Peak gradient 48 mmHg Interventricular septum is normal. No pericardial effusion Impressions: Pneumoperitoneum Pneumatosis intestinalis questionably secondary to vigorous coughing Positive COVID-19 Diffuse reticular nodular changes consistent with d (more content not included)... [facility] 03-20-2023 Note HNO ID: [id number] Author: PAMELA HALL MD Service: General Surgery Author Type: Physician Type: Progress Notes Filed: 03/20/2023 14:33 Note Text: Emergency General Surgery Progress Note SERVICE DATE: March 20, 2023 Emergency General Surgery Service Pager: For questions or concerns Mon-Fri 6a-5p please page [phone]. After 5pm and on Weekends and Holidays, please page [phone] if in ICU or [phone] if on RNF. SUBJECTIVE: NAEON. AF and HDS. She remains NPO and denies any nausea. She denies any abdominal pain. She has had no further episodes of hemoptysis. OBJECTIVE: Vitals: Temp (24hrs), Av.8 ?C (98.3 ?F), Min:36.8 ?C (98.3 ?F), Max:36.8 ?C (98.3 ?F) BP 110/67 Pulse 84 Temp 36.8 ?C (98.3 ?F) (Oral) Resp 19 Ht 160 cm (5' 3 ) Wt 54.9 kg (121 lb) SpO2 97% BMI 21.43 kg/m? O2 Therapy: Room Air IANDO: Date 03/19/23699 - 03/20/23 0659 03/20/23699 - 03/21/23 0659 Shift 8574-6337 3991-0590 3599-0616 24 Hour Total 2210-8378 1864-1151 8828-1506 24 Hour Total INTAKE IV 300 100 400 Volume (mL) (ciprofloxacin iv piggyback 400 mg in D5W 200 mL (CIPRO)) 200 200 Volume (mL) (metroNIDAZOLE iv piggyback 500 mg in NaCl (iso-osmotic) 100 mL (FLAGYL)) 100 100 200 Shift Total 300 100 400 OUTPUT Shift Total Weight (kg) 54.9 54.9 54.9 54.9 54.9 54.9 54.9 MEDICATIONS Current Facility-Administered Medications Medication Dose Route Frequency ciprofloxacin iv piggyback 400 mg in D5W 200 mL (CIPRO) 400 mg INTRAVENOUS q 12 H metroNIDAZOLE iv piggyback 500 mg in NaCl (iso-osmotic) 100 mL (FLAGYL) 500 mg INTRAVENOUS q 8 H lactated ringers iv infusion 100 mL/hr INTRAVENOUS CONTINUOUS NaCl 0.9% iv flush bag 20 mL INTRAVENOUS PRN tiotropium bromide 2.5 mcg/actuation 2 Puff (SPIRIVA RESPIMAT) 2 Puff INHALATION DAILY gabapentin 300 mg cap(s) (NEURONTIN) 300 mg ORAL BID albuterol HFA 90 mcg/actuation 2 Puff (PROVENTIL HFA, VENTOLIN HFA) 2 Puff INHALATION q 4 H PRN budesonide-formoterol 160-4.5 mcg/actuation 2 Puff (SYMBICORT) 2 Puff INHALATION BID leucovorin 15 mg tab(s) 15 mg ORAL DAILY pantoprazole DR 40 mg tab(s) (PROTONIX) 40 mg ORAL DAILY (6 AM) acetaminophen 975 mg tab(s) (TYLENOL) 975 mg ORAL QID ondansetron 4 mg tab(s) (ZOFRAN) 4 mg ORAL q 6 H PRN Or ondansetron (PF) 4 mg injection (ZOFRAN) 4 mg INTRAVENOUS q 6 H PRN oxyCODONE IR 5 mg tab(s) (ROXICODONE) 5 mg ORAL q 4 H PRN Labs: Recent Labs 03/20/23 0416 03/19/23 1921 NA 128* 128* K 3.9 4.3 CHLOR 96* 95* CO2 24 25 BUN 25* 27* CREAT 0.84 0.88 GLUC 77 87 ANION 8* 8* CA 8.4* 8.9 WBC 5.06 7.48 HB 8.1* 9.6* HCT 24.6* 29.2* PLT 126* 144* LACT -- 1.2 INR 5.7* >8.0* Physical Exam: GENERAL: No distress, Alert NEURO: AANDOx3, CN II-XII grossly intact HEENT: normocephalic, atraumatic LUNGS: Unlabored breathing CARDIAC: Regular rate and rhythm as above ABDOMEN: Soft, non-tender, non-distended EXTREMITIES: ZAPATA, No deformities, No edema SKIN: Skin color, texture, turgor normal, No rashes or lesions ASSESSMENT AND PLAN: Assessment Active Hospital Problems Diagnosis Date Noted Pneumatosis intestinalis 03/19/2023 Assessment: 77 year old female with PMH significant for RA (Humira), HTN, h/o disseminated Histoplasmosis, bronchiectasis, VTE (on coumadin), pulmonary nodules, and presenting to the ED today after an episode of hemoptysis at home. CTAP had an incidental finding of a small amount of intraperitoneal air and pneumatosis in the colon. INR on arrival to [place] was 9. She given Vitamin K and transferred here. Hospital Course/Operations/Procedures: * No surgery found * Plan: Pneumatosis intestinalis and intraperitoneal free air - labs and imaging reviewed - Small amount of air on CTAP with associated pneumatosis intestinalis - leukocytosis 5.06 down from 7.48 - abdominal exam remains benign - no acute surgical intervention at this time - okay for clear liquid diet - continue IV abx - Cipro/Flagyl - HTN, h/o disseminated Histoplasmosis, bronchiectasis - likely that the pneumatosis is idiopathic secondary to aggressive coughing - likely also explains hemoptysis - DVT ppx: Hx of VTE (on coumadin); holding chemical anticoagulation - INR on arrival to [place] was 9. She given Vitamin K prior to transfer - continue serial abdominal exams - notify general surgery of any acute changes in clinical status D/w Dr. Hall SIGNATURE: Christ Camarena MD PATIENT NAME: Haydee Bustamante DATE: March 20, 2023 TIME: 921 Pager: [phone] Emergency General Surgery Service Pager: For questions or concerns Mon-Fri 6a-5p please page [phone]. After 5pm and on Weekends and Holidays, please page [phone] if in ICU or [phone] if on RNF. Emergency General Surgery (EGS) Staff Addendum: See admit H/P for full attestation following today's patient care visit. I evaluated the patient and personally participated in the jim components. I agree with the resident's findi (more content not included)... [facility] 03-03-2023 Note HNO ID: [id number] Author: NYASIA WICK APRN.PHARMACEUTICAL PHYSICIAN Service: ? Author Type: Nurse Practitioner Type: [...] Bronchiectasis (HCC) COPD (chronic obstructive pulmonary disease) ([facility]) Disseminated histoplasmosis Colitis, immunosuppression, 01/2018. Diverticulosis of colon (without mention of hemorrhage) Diverticulosis DVT, recurrent, lower extremity, acute ([facility]) 12/10/2014 Esophageal reflux Hiatal hernia 02/25/2018 Hypertension Lung nodule Personal history of unspecified urinary disorder 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 rheumatoid factor ([facility]) 03/07/2015 Dr. Hurley ([facility]) Unspecified hemorrhoids without mention of complication [...] SPINE FUSN,POST INTERBODY 2011 Dr. Armando at [facility]. Diskectomy and laminectomy PAST SURGICAL HISTORY OF [...] fluticasone (FLONASE) 50 mcg/actuation nasal sprayUse 1 [place] in each nostril once daily.Disp: 3 EachRfl: [address] (PROTONIX) 40 mg tabletTake 1 tablet by mouth once daily.Disp: 90 tabletRfl: 3 albuterol HFA (PROAIR HFA) 90 mcg/actuation inhalerInhale 2 Puffs as instructed every 4 hours as needed.Disp: 1 EachRfl: 2 vit A,C,C-Mntx-Qgcpus (OCUVITE PRESERVISION) 2,148 mcg-113 mg-45 mg-17.4mg tabTake [...] mg by mout (more content not included)... [facility] 03-02-2023 Note HNO ID: [id number] Author: FLEX MEANS RN Service: ? Author Type: Registered Nurse Type: Progress Notes Filed: 03/02/2023 16:09 Note Text: pcp agrees with information [facility] 03-02-2023 Note HNO ID: [id number] Author: FLEX MEANS RN Service: ? Author Type: Registered Nurse Type: Progress Notes Filed: 03/02/2023 16:09 Note Text: patient had inr completed at [facility] patients inr is 1.7 (patients inr range [...] 4 weeks (03/30/23) for follow up INR. [facility] 02-23-2023 Note HNO ID: [id number] Author: JOHANNA BENITES PA-C Service: ? Author Type: Physician Department Helper Type: Progress Notes Filed: 02/23/2023 14:58 Note [...] coughing around Thanksgiving. She was seen in [facility] 02/07 and treated with Doxycycline for [...] Bronchiectasis (HCC) COPD (chronic obstructive pulmonary disease) ([facility]) Disseminated histoplasmosis Colitis, immunosuppression, 01/2018. Diverticulosis of colon (without mention of hemorrhage) Diverticulosis DVT, recurrent, lower extremity, acute ([facility]) 12/10/2014 Esophageal reflux Hiatal hernia 02/25/2018 Hypertension Lung nodule Personal history of unspecified urinary disorder 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 rheumatoid factor ([facility]) 03/07/2015 Dr. Hurley ([facility]) Unspecified hemorrhoids without mention of complication [...] fluticasone (FLONASE) 50 mcg/actuation nasal sprayUse 1 [place] in each nostril once daily.Disp: 3 EachRfl: [address] (PROTONIX) 40 mg tabletTake 1 tablet by mouth once daily.Disp: 90 tabletRfl: 3 albuterol HFA (PROAIR HFA) 90 mcg/actuation inhalerInhale 2 Puffs as instructed every 4 hours as needed.Disp: 1 EachRfl: 2 vit A,C,H-Mghh-Zddyji (OCUVITE PRESERVISION) 2,148 mcg-113 mg-45 mg-17.4mg tabTake [...] FLX DX W/ (more content not included)... [facility] 02-21-2023 Note HNO ID: [id number] Author: Faviola Anthony, RT(R) Service: ? Author Type: Sound Truck Operator Type: Progress Notes Filed: 02/21/2023 3:59 PM [...] PERIPHERAL IV DATA: Not applicable SIGNED BY: JAIME WolfR) February 21, 2023 3:59 PM [facility] 02-14-2023 Note Patient Outreach ([facility]) HAYDEE BUSTAMANTE ([id number]) 1945 F Date Time Provider Department 02/14/23 ILDA MILLER During your visit today, we recorded the following information about you: Ilda Miller RN 02/14/2023 9:29 AM Signed [facility] Telephonic Outreach Provider Action/FYI N/A Follow up [...] I'm never short of breath. Based on assessment clinician, the following disposition is advised: No symptoms or symptoms present, not severe. Routed to: No Action Needed PAN Education Provided this Outreach: No Upcoming appointments reviewed: Appointments for Next 60 Days Date Time Provider Location Dept Phone 02/21/2023 8:[address] [facility] (I-STAT) [place] Ponce [phone] 02/21/2023 9:00 AM JOHANNA BENITES [phone] 03/02/2023 9:45 AM [facility] [phone] 04/09/2023 10:[address] [facility] [phone] Ilda Miller RN February 14, 2023 9:29 [...] (FLONASE) 50 mcg/actuation nasal spray Use 1 [place] in each nostril once daily. - pantoprazole DR (PROTONIX) 40 mg tablet Take 1 tablet by mouth once daily. - albuterol HFA (PROAIR HFA) 90 mcg/actuation inhaler Inhale 2 Puffs as instructed every 4 hours as needed. - vit A,C,R-Ktzw-Evgfdm (OCUVITE PRESERVISION) 2,148 mcg-113 mg-45 mg-17.4mg tab [...] by this patient by: PATIENT Muna Harris (Machine Or Machinery Mechanic) [employer] for terminal operator medications. Problem List As Of Date 02/14/2023 Noted Resolved ESOPHAGEAL REFLUX [K21.9] 03/06/2005 MERALGIA PARESTHETICA [G57.10] 03/06/2005 VOICE DISTURBANCE NEC [R49.8] 03/06/2005 Pain in joint, lower leg [M25.569] 10/18/2006 03/02/2018 Embolism and thrombosis (HCC) [I74.9] 11/23/2006 07/07/2021 ARTHROPATHY NOS-UNSPEC [M12.9] 12/05/2006 Enthesopathy of hip region [M76.899] 01/04/2009 07/07/2021 Elevated Liver Enzymes [R74.8] 04/01/2009 Rheumatoid arthritis (HCC) [M06.9] 04/01/2009 03/07/2015 USP current use of anticoagulant therapy *04/01/2009 Hypertension [I10] 04/13/2010 03/07/2015 Right sided sciatica [M54.31] 03/20/2011 03/30/2014 HNP (herniated nucleus pulposus), lumbar [M51.2*03/20/2011 Atrophic vaginitis [N95.2] 03/06/2013 Ganglion cyst [M67.40] 08/17/2014 DVT, recurrent, lower extremity, acute (HCC) [I*11/20 (more content not included)... [facility] 02-14-2023 Note HNO ID: [id number] Author: Ilda Miller RN Service: ? Author [...] I'm never short of breath. Based on assessment clinician, the following disposition is advised: No symptoms or symptoms present, not severe. Routed to: No Action Needed PAN Education Provided this Outreach: No Upcoming appointments reviewed: Appointments for Next 60 Days Date Time Provider Location Dept Phone 02/21/2023 8:[address] [facility] (I-STAT) [place] Ponce [phone] 02/21/2023 9:00 AM JOHANNA BENITES [phone] 03/02/2023 9:45 AM ANTICOAG [facility] [place]O [phone] 04/09/2023 10:[address] [facility] [phone] Ilda Miller RN February 14, 2023 9:29 AM [facility] 02-07-2023 Note HNO ID: [id number] Author: Kathleen Alegria RT(R) Service: Radiology Author [...] RT Mariela(R) February 07, 2023 11:06 AM [facility] 02-07-2023 Note HNO ID: [id number] Author: Adri Zaragoza APRN.PHARMACEUTICAL PHYSICIAN Service: ? Author Type: Nurse Practitioner Type: [...] Bronchiectasis (HCC) COPD (chronic obstructive pulmonary disease) ([facility]) Disseminated histoplasmosis Colitis, immunosuppression, 01/2018. Diverticulosis of colon (without mention of hemorrhage) Diverticulosis DVT, recurrent, lower extremity, acute ([facility]) 12/10/2014 Esophageal reflux Hiatal hernia 02/25/2018 Hypertension Lung nodule Personal history of unspecified urinary disorder 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 rheumatoid factor ([facility]) 03/07/2015 Dr. Hurley ([facility]) Unspecified hemorrhoids without mention of complication [...] SPINE FUSN,POST INTERBODY 2012 Dr. Armando at [facility]. Diskectomy and laminectomy PAST SURGICAL HISTORY OF [...] fluticasone (FLONASE) 50 mcg/actuation nasal sprayUse 1 [place] in each nostril once daily.Disp: 3 EachRfl: [address] (PROTONIX) 40 mg tabletTake 1 tablet by mouth once daily.Disp: 90 tabletRfl: 3 albuterol HFA (PROAIR HFA) 90 mcg/actuation inhalerInhale 2 Puffs as instructed every 4 hours as needed.Disp: 1 EachRfl: 2 vit A,C,S-Uxeu-Jbtzfk (OCUVITE PRESERVISION) 2,148 mcg-113 mg-45 mg-17.4mg tabTake [...] and nursing n (more content not included)... [facility] 02-07-2023 History of Presen t illness [...] Bronchiectasis (HCC) COPD (chronic obstructive pulmonary disease) ([facility]) Disseminated histoplasmosis Colitis, immunosuppression, 01/2018. Diverticulosis of colon (without mention of hemorrhage) Diverticulosis DVT, recurrent, lower extremity, acute ([facility]) 12/10/2014 Esophageal reflux Hiatal hernia 02/25/2018 Hypertension Lung nodule Personal history of unspecified urinary disorder 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 rheumatoid factor ([facility]) 03/07/2015 Dr. Hurley ([facility]) Unspecified hemorrhoids without mention of complication [...] SPINE FUSN,POST INTERBODY 2011 Dr. Armando at [facility]. Diskectomy and laminectomy PAST SURGICAL HISTORY OF [...] fluticasone (FLONASE) 50 mcg/actuation nasal spray^Use 1 [place] in each nostril once daily.^Disp: 3 Each^Rfl: [address] (PROTONIX) 40 mg tablet^Take 1 tablet by mouth once daily.^Disp: 90 tablet^Rfl: 3 albuterol HFA (PROAIR HFA) 90 mcg/actuation inhaler^Inhale 2 Puffs as instructed every 4 hours as needed.^Disp: 1 Each^Rfl: 2 vit A,C,T-Dfsy-Cxewxb (OCUVITE PRESERVISION) 2,148 mcg-113 mg-45 mg-17.4mg tab^Take [...] A/B & RSV NAAT, ROUTINE Adri Zaragoza APRN.PHARMACEUTICAL PHYSICIAN documented in this encounter [facility] 02-05-2023 Note Patient Outreach ([facility]) HAYDEE BUSTAMANTE ([id number]) 1945 F Date Time Provider Department 02/05/23 ILDA MILLER During your visit today, we recorded the following information about you: Ilda Miller RN 02/05/2023 9:35 AM Signed CDM ESCALATION Provider Action / FYI: N/A Message received via: glass presser Pool Are you having any new symptoms that your PCP needs to know about? Yes Do you have new or worsening cough? Yes Do you need to use your rescue (Albuterol) inhaler or nebulizer more often than normal? Yes Contact made with patient: Yes The patient was identified by name and date of . Discussed Care with patient Based on assessment clinician, the following disposition is advised: No symptoms [...] in bedroom at night. Advised evaluation at [facility]. Pt is agreeable to this and will go today to [place] for evaluation. Advised if becomes SOB or [...] Visit: Community Monitoring Outreach [Other] Cmt: CDM Escalation[facility] questionnaire triggered call Primary Visit Diagnosis:Chronic obstructive pulmonary disease with acute exacerbation (HCC) [J44.1] Order(s):PT ED PULMONARY [[id number]] Order #: [id number]: 1 Prescriptions as of 02/05/2023 - budesonide-formoterol [...] (FLONASE) 50 mcg/actuation nasal spray Use 1 [place] in each nostril once daily. - pantoprazole DR (PROTONIX) 40 mg tablet Take 1 tablet by mouth once daily. - albuterol HFA (PROAIR HFA) 90 mcg/actuation inhaler Inhale 2 Puffs as instructed every 4 hours as needed. - vit A,C,J-Ypdv-Ziwxjg (OCUVITE PRESERVISION) 2,148 mcg-113 mg-45 mg-17.4mg tab [...] by this patient by: PATIENT Muna Harris (Machine Or Machinery Mechanic) [facility] for [facility] medications. 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 [facility] 02-05-2023 Note HNO ID: [id number] Author: Ilda Miller RN Service: ? Author Type: Registered Nurse Type: Progress Notes Filed: 02/05/2023 9:35 AM Note Text: CDM ESCALATION Provider Action / FYI: N/A Message received via: glass presser Pool Are you having any new symptoms that your PCP needs to know about? Yes Do you have new or worsening cough? Yes Do you need to use your rescue (Albuterol) inhaler or nebulizer more often than normal? Yes Contact made with patient: Yes The patient was identified by name and date of . Discussed Care with patient Based on assessment clinician, the following disposition is advised: No symptoms [...] in bedroom at night. Advised evaluation at [facility]. Pt is agreeable to this and will go today to [place] for evaluation. Advised if becomes SOB or cough worsens to the point of not being able to catch her breath, or notes bluish tint around lips to go to nearest ED or call 911. Verbalizes understanding and agreement. Ilda Miller RN February 05, 2023 9:19 AM [facility] 02-02-2023 Note HNO ID: [id number] Author: Flex Means RN Service: ? Author Type: ? Type: Progress Notes Filed: 02/02/2023 3:19 PM Note Text: pcp agrees with information [facility] 02-02-2023 History of Presen t illness Narrative pcp agrees with information patient had inr completed at [facility] patients inr is 2.1 (patients inr range [...] follow up INR. documented in this encounter [facility] 02-02-2023 Note HNO ID: [id number] Author: Flxe Means RN Service: ? Author Type: ? Type: Progress Notes Filed: 02/02/2023 3:19 PM Note Text: patient had inr completed at [facility] patients inr is 2.1 (patients inr range [...] 4 weeks (03/02/23) for follow up INR. [facility] 01-24-2023 Miscellaneous Notes GEREMIAS 07/20/22 Patient phones requesting refills as follows: Requested Prescriptions Pending Prescriptions Disp Refills budesonide-formoterol (SYMBICORT) 160-4.5 mcg/actuation inhaler [Pharmacy Med Name: BUDESONIDE/FORM INHALER 10.2GM 160/4.5MCG] 30.6 g 3 Sig: USE 2 INHALATIONS TWICE A DAY INSTRUCTED Please review and advise. Magalie Ngo LPN documented in this encounter [facility] 01-17-2023 Note HNO ID: [id number] Author: Flex Means RN Service: ? Author Type: ? Type: Progress Notes Filed: 01/17/2023 3:02 PM Note Text: pcp agrees with information [facility] 01-17-2023 Note HNO ID: [id number] Author: Flex Means RN Service: ? Author Type: ? Type: Progress Notes Filed: 01/17/2023 3:02 PM Note Text: patient had inr completed at [facility] patients inr is 1.9 (patients inr range [...] the first normal reading since dose change [facility] 01-17-2023 History of Presen t illness Narrative pcp agrees with information patient had inr completed at [facility] patients inr is 1.9 (patients inr range [...] since dose change documented in this encounter [facility] 01-10-2023 Note HNO ID: [id number] Author: Flex Means RN Service: ? Author Type: ? Type: Progress Notes Filed: 01/10/2023 3:47 PM Note Text: pcp agrees with information PATIENT NOTIFIED OF INFORMATION [facility] 01-10-2023 History of Presen t illness Narrative pcp agrees with information PATIENT NOTIFIED OF INFORMATION patient had inr completed at [facility] patients inr is 2.9 (patients inr range [...] advise on recommendation documented in this encounter [facility] 01-10-2023 Note HNO ID: [id number] Author: Flex Means RN Service: ? Author Type: ? Type: Progress Notes Filed: 01/10/2023 3:47 PM Note Text: patient had inr completed at [facility] patients inr is 2.9 (patients inr range [...] 01/17/23 please review and advise on recommendation [facility] 01-04-2023 Note HNO ID: [id number] Author: Yesenia Weinstein LPN Service: ? Author Type: ? Type: Progress Notes Filed: 01/04/2023 4:25 PM Note Text: Patient notified of providers message and verbalized understanding. [facility] 01-04-2023 Note HNO ID: [id number] Author: Jimbo Carias APRN.TYLOR Service: ? Author Type: Nurse Specialist Type: Progress Notes Filed: 01/04/2023 4:25 PM Note Text: OK to change coumadin to 7.5mg Tues,Sat,Sun and 5mg all other days and recheck INR in 1 week [facility] 01-04-2023 History of Presen t illness Narrative Patient notified of providers message and verbalized understanding. OK to change coumadin to 7.5mg Tues,Sat,Sun and 5mg all other days and recheck INR in 1 week patient had inr completed at [facility] patients inr is 2.6 (patients inr range [...] advise on recommendation documented in this encounter [facility] 01-04-2023 Note HNO ID: [id number] Author: Flex Means RN Service: ? Author Type: ? Type: Progress Notes Filed: 01/04/2023 4:25 PM Note Text: patient had inr completed at [facility] patients inr is 2.6 (patients inr range [...] 01/10/23 please review and advise on recommendation [facility] 01-04-2023 Note HNO ID: [id number] Author: Jimbo Carias APRN.CLERICAL WAREHOUSEMAN Service: ? Author Type: Nurse Specialist Type: [...] and COPD. HPI excerpted from previous visits: Vehicle Glass Technician: Florence Terry MD, last seen July 20, 2022. Seen for follow-up of lung nodules bronchiectasis. Noted are a likely etiology for underlying bronchiectasis. Noted new nodularity of lung, likely represents inflammatory nodules. Will need follow-up CT. No this may improve with bronchopulmonary hygiene. Spiriva and intermittent albuterol has helped with cough. Stable. A&P Mechanic: William Ambriz BAV, aortic stenosis , last seen in cardiology August 29, 2022 by Rachelle Lai CNP. Continued on current treatments unchanged. Follow-up echo advised, not yet scheduled.. Private Sector Executive: [facility]. Continues with methotrexate, Humira.seen by [...] Occasional bruising. [facility] coumadin clinic. Referred by exhaust emissions automotive technician to see orthopedic physician for her hip. [...] fluticasone (FLONASE) 50 mcg/actuation nasal sprayUse 1 [place] in each nostril once daily.Disp: 3 EachRfl: [address] (PROTONIX) 40 mg tabletTake 1 tablet by mouth once daily.Disp: 90 tabletRfl: 3 albuterol HFA (PROAIR HFA) 90 mcg/actuation inhalerInhale 2 Puffs as instructed every 4 hours as needed.Disp: 1 EachRfl: 2 vit A,C,R-Ytvc-Nlgjpw (OCUVITE PRESERVISION) 2,148 mcg-113 mg-45 mg-17.4mg tabTake 2 tablets by mouth daily with breakfast.Disp: Rfl: potassium chloride ER (KLOR-CON M20) 20 mEq tabletTake 1 tablet by mouth twice daily.Disp: 180 tabletRfl: 3 leucovorin (LEUCOVORIN) 15 mg table (more content not included)... [facility] 01-04-2023 Instructions Jimbo Carias APRN.CNS - 01/04/2023 10:50 AM EST It appears that you have better coverage for the RSV vaccine at your local pharmacy. documented in this encounter [facility] 01-04-2023 History of Presen t illness [...] and COPD. HPI excerpted from previous visits: Vehicle Glass Technician: Florence Terry MD, last seen July 20, 2022. Seen for follow-up of lung nodules bronchiectasis. Noted are a likely etiology for underlying bronchiectasis. Noted new nodularity of lung, likely represents inflammatory nodules. Will need follow-up CT. No this may improve with bronchopulmonary hygiene. Spiriva and intermittent albuterol has helped with cough. Stable. A&P Mechanic: William Ambriz BAV, aortic stenosis , last seen in cardiology August 29, 2022 by Rachelle Lai CNP. Continued on current treatments unchanged. Follow-up echo advised, not yet scheduled.. Private Sector Executive: [facility]. Continues with methotrexate, Humira.seen by Dr. Roque [...] Occasional bruising. [facility] coumadin clinic. Referred by exhaust emissions automotive technician to see orthopedic physician for her hip. [...] fluticasone (FLONASE) 50 mcg/actuation nasal spray^Use 1 [place] in each nostril once daily.^Disp: 3 Each^Rfl: [address] (PROTONIX) 40 mg tablet^Take 1 tablet by mouth once daily.^Disp: 90 tablet^Rfl: 3 albuterol HFA (PROAIR HFA) 90 mcg/actuation inhaler^Inhale 2 Puffs as instructed every 4 hours as needed.^Disp: 1 Each^Rfl: 2 vit A,C,F-Rbgy-Zgsykb (OCUVITE PRESERVISION) 2,148 mcg-113 mg-45 mg-17.4mg tab^Take [...] hemorrhage) Diverticulosis DVT, recurrent, lower extremity, acute ([facility]) 12/10/2014 Esophageal reflux Hiatal hernia 02/25/2018 Hypertension Lung nodule Personal history of unspecified urinary disorder 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 rheumatoid factor ([facility]) 03/07/2015 Dr. Hurley ([facility]) Unspecified hemorrhoids without mention of complication [...] to get at pharmacy discussed risks - [employer] COVID-19 VACCINE (2022- [place]) AGE 12+ YR in office today Jimbo Carias APRN.CLERICAL WAREHOUSEMAN Medical Decision Making: Problems: Low: 2+ self-limited or minor problems Risk: Moderate: Drug management Medical Decision Making Level: 3 - Low documented in this encounter [facility] 12-20-2022 Miscellaneous Notes Patient has been identified [...] Maritza Preston LPN. documented in this encounter [facility] 12-14-2022 Note HNO ID: [id number] Author: Jimbo Carias APRN.CLERICAL WAREHOUSEMAN Service: ? Author Type: Nurse Specialist Type: Progress Notes Filed: 12/14/2022 3:38 PM Note Text: Continue with Coumadin dose unchanged and check INR in 2 or 3 weeks [facility] 12-14-2022 Note HNO ID: [id number] Author: Flex Means RN Service: ? Author Type: ? Type: Progress Notes Filed: 12/14/2022 3:38 PM Note Text: patient had inr completed at [facility] patients inr is 2.2 (patients inr range [...] week lauryn and patient declines blood draw [facility] 12-14-2022 History of Presen t illness Narrative Continue with Coumadin dose unchanged and check INR in 2 or 3 weeks patient had inr completed at [facility] patients inr is 2.2 (patients inr range [...] declines blood draw documented in this encounter [facility] 12-07-2022 Note HNO ID: [id number] Author: Yesenia Weinstein LPN Service: ? Author Type: ? Type: Progress Notes Filed: 12/07/2022 4:46 PM Note Text: Patient notified of providers message regarding coumadin instructions and verbalized understanding. [facility] 12-07-2022 Note HNO ID: [id number] Author: Carias, Jimbo, INTERFACE ANALYST.CLERICAL WAREHOUSEMAN Service: ? Author Type: Nurse Specialist Type: Progress Notes Filed: 12/07/2022 4:46 PM Note Text: Recommend Coumadin 5 mg Gil Sunday and 7.5 mg all other days and check INR in 1 week [facility] 12-07-2022 History of Presen t illness Narrative Patient notified of providers message regarding coumadin instructions and verbalized understanding. Recommend Coumadin 5 mg Sunday and 7.5 mg all other days and check INR in 1 week patient had inr completed at [facility] patients inr is 2.5 (patients inr range is 1.7-2.2) patient is currently taking 5mg Mon,Wed and 7.5mg all other days patients last dose change was on 10/12/22 due to a low level of 1.5 (dose at that time was 7.5mg Tues,Th,Sun and 5mg all other days) patient has had no changes in medication and no missed doses and no change in diet Recommend: patient change coumadin dose to 5mg Mon,Wed,Fri and 7.5mg all other days and recheck inr in 1 week patient has been scheduled for a 1 week follow up inr on 12/14/22 please review and advise on recommendation documented in this encounter [facility] 12-07-2022 Note HNO ID: [id number] Author: Flex Means RN Service: ? Author Type: ? Type: Progress Notes Filed: 12/07/2022 4:46 PM Note Text: patient had inr completed at [facility] CC patients inr is 2.5 (patients inr range [...] 12/14/22 please review and advise on recommendation [facility] 11-20-2022 Miscellaneous Notes November 20, 2022 PID: [id number] Haydee Bustamante [address] [place] [id number] Dear Ms. Bustamante, We are pleased to [...] report will be kept on file at [facility] as part of your permanent medical record and are available for your continuing care. Thank you for allowing us to help in meeting your health care needs. Sincerely, Dr. Basurto Interpreting Radiologist [facility] (Normal over 40) documented in this encounter [facility] 11-17-2022 Note HNO ID: [id number] Author: Aide Gupta RT(R) Service: ? Author [...] Rosa Maria(R) November 17, 2022 9:00 AM [facility] 11-17-2022 Note HNO ID: [id number] Author: Shahnaz Ferguson Mammo Tech Service: ? Author Type: Sound Truck Operator Type: Progress Notes Filed: 11/17/2022 9:25 AM [...] IV DATA: Not applicable SIGNED BY: Haider Adams November 17, 2022 9:00 AM [facility] 11-17-2022 History of Presen t illness [...] IV DATA: Not applicable SIGNED BY: Haider Adams November 17, 2022 9:00 AM documented in this encounter [facility] 11-17-2022 Miscellaneous Notes Negative, 1 year screening follow-up documented in this encounter [facility] 11-09-2022 Note HNO ID: [id number] Author: Jimbo Carias APRN.CNS Service: ? Author Type: Nurse Specialist Type: Progress Notes Filed: 11/09/2022 4:58 PM Note Text: Continue Coumadin dose unchanged and check INR in 4 weeks [facility] 11-09-2022 History of Presen t illness Narrative Continue Coumadin dose unchanged and check INR in 4 weeks patient had inr completed at [facility] patients inr is 1.9 (patients inr range [...] follow up INR. documented in this encounter [facility] 11-09-2022 Note HNO ID: [id number] Author: Flex Means RN Service: ? Author Type: ? Type: Progress Notes Filed: 11/09/2022 4:58 PM Note Text: patient had inr completed at [facility] patients inr is 1.9 (patients inr range is 1.7-2.2) patient is currently taking 5mg Sun,Wed and 7.5mg all other days patients last [...] 4 weeks (12/07/22) for follow up INR. [facility] 11-09-2022 Note HNO ID: [id number] Author: Ron Bell MD Service: ? Author Type: Physician Type: Progress Notes Filed: 12/07/2022 8:52 AM Note Text: Ron Bell MD Department of Orthopaedics Orthopaedics [address] [facility] [address] Dept: [phone] Dept November 09, 2022 CHIEF COMPLAINT: New [...] acute pathology. 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 Packager Or Packer And Weigher: PSCB Transcribe Date/Time: Dec 31 2021 11:55A Dictated [...] Anemia Bone marrow involvement with histoplasmosis Bronchiectasis ([facility]) COPD (chronic obstructive pulmonary disease) ([facility]) Disseminated histoplasmosis Colitis, immunosuppression, 01/2018. Diverticulosis of colon (without mention of hemorrhage) Diverticulosis DVT, recurrent, lower extremity, acute ([facility]) 12/10/2014 Esophageal reflux Hiatal hernia 02/25/2018 Hypertension Lung nodule Personal history of unspecified urinary disorder 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 rheumatoid factor ([facility]) 03/07/2015 Dr. Hurley ([facility]) Unspecified hemorrhoids without mention of complication [...] SPINE FUSN,POST INTERBODY 2011 Dr. Armando at [facility]. Diskectomy and laminectomy PAST SURGICAL HISTORY OF 03/07/1999 removal facial lesion PAST SURGICAL HISTORY OF 08/17/2014 excision soft tissue mass left index finger TONSILLECTOMY PRIMARY/SECONDARY TRANSCATH RETRIEVAL,PERCUT 12/28/2006 Family History: FAMILY HISTORY Problem Relation Age of Onset Cancer Mother brain Social History: Social History To (more content not included)... [facility] 11-09-2022 Miscellaneous Notes patients orders for coumadin clinic inr's has at this time. new order has been pended for approval if possible so that patient can continue to get inr's completed thru the coumadin clinic. coumadin clinic nurse only needs called if order can not be approved. documented in this encounter [facility] 11-09-2022 History of Presen t illness Narrative Ron Bell MD Department of Orthopaedics Orthopaedics [address] [facility] [address] Dept: [phone] Dept November 09, 2022 CHIEF COMPLAINT: New [...] acute pathology. 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 Packager Or Packer And Weigher: PSCB Transcribe Date/Time: Dec 31 2021 11:55A Dictated [...] Anemia Bone marrow involvement with histoplasmosis Bronchiectasis ([facility]) COPD (chronic obstructive pulmonary disease) ([facility]) Disseminated histoplasmosis Colitis, immunosuppression, 01/2018. Diverticulosis of colon (without mention of hemorrhage) Diverticulosis DVT, recurrent, lower extremity, acute ([facility]) 12/10/2014 Esophageal reflux Hiatal hernia 02/25/2018 Hypertension Lung nodule Personal history of unspecified urinary disorder 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 rheumatoid factor ([facility]) 03/07/2015 Dr. Hurley ([facility]) Unspecified hemorrhoids without mention of complication [...] SPINE FUSN,POST INTERBODY 2012 Dr. Armando at [facility]. Diskectomy and laminectomy PAST SURGICAL HISTORY OF [...] (FLONASE) 50 mcg/actuation nasal spray Use 1 [place] in each nostril once daily. pantoprazole DR (PROTONIX) 40 mg tablet Take 1 tablet by mouth once daily. albuterol HFA (PROAIR HFA) 90 mcg/actuation inhaler Inhale 2 Puffs as instructed every 4 hours as needed. vit A,C,K-Trrj-Vrnsvv (OCUVITE PRESERVISION) 2,148 mcg-113 mg-45 mg-17.4mg tab [...] requesting physician via US mail. Jeana Sommers [facility] [address] Claudine Durán MD [address] [place] [address] [place] [id number] Ron Bell MD documented in this encounter [facility] 11-02-2022 Miscellaneous Notes Patient calls back and states that [facility] does have prescription for coumadin. Isabella Zacarias RN Patient calling to say [facility] tells her they did not receive script for short fill Warfarin. Patient asking if it can be sent again. Pended. Melanie Mcgregor RN documented in this encounter [facility] 10-31-2022 Miscellaneous Notes Last OV: 10/27/22 with TYLOR Yi. Pt reports she will be out of medication on and [facility] advised her she had no refills even though pt should. Patient has been identified by name and date of : Yes Requested Prescriptions Pending Prescriptions Disp Refills warfarin (COUMADIN) 5 mg tablet 30 tablet 0 Sig: Take 7.5 mg Tu, Sun,Fri, Sat, Sun; and 5 mg on Sunday and Sunday warfarin (COUMADIN) 5 mg tablet 180 tablet 3 Sig: Take 7.5 mg , Sun,Fri, Sat, Sun; and 5 mg on Sunday and Sunday RX INSTRUCTIONS: Patient aware RX will be sent to pharmacy. No need to notify patient. Charissa Perez LPN documented in this encounter [facility] 10-31-2022 Miscellaneous Notes Patient calling with request for medication/refill: Patient/caregiver requesting refill of Warfarin [facility] at online.. Patient denies any new or worsening symptoms of which a provider is not aware: Yes. Patient just discovered she will run out of the below rx on . Is requesting a short term supply be sent to [facility] in [place] and the remainder sent to [facility]. Has been taking medication as ordered. warfarin (COUMADIN) 5 mg tablet 30 tablet 3 07/11/2022 Sig: Take 7.5 mg , Sun,Sun, Sat, Sun; and 5 mg on Sunday and Sunday Sent to pharmacy as: warfarin (COUMADIN) 5 mg tablet documented in this encounter [facility] 10-27-2022 Note HNO ID: [id number] Author: Jimbo Carias APRN.CLERICAL WAREHOUSEMAN Service: ? Author Type: Nurse Specialist Type: [...] bicuspid valve, lung nodule bronchiectasis and COPD. Vehicle Glass Technician: Florence Terry MD, last seen July 20, 2022. Seen for follow-up of lung nodules bronchiectasis. Noted are a likely etiology for underlying bronchiectasis. Noted new nodularity of lung, likely represents inflammatory nodules. Will need follow-up CT. No this may improve with bronchopulmonary hygiene. Spiriva and intermittent albuterol has helped with cough. Stable. A&P Mechanic: William GOTTI, aortic stenosis , last seen in cardiology August 29, 2022 by Rachelle Lai CNP. Continued on current treatments unchanged. Follow-up echo advised, not yet scheduled.. Private Sector Executive: [facility]. Continues with methotrexate, Humira.seen by Dr. Roque Zacarias 06/26/2022 for RA, osteoporosis, degenerative disc disease, arthritis of foot, osteoarthritis of bilateral hands. DEXA scan completed, showed osteoporosis. All yes trying recommended restart of Reclast. Weight: stable Exercise: walking miles most days, feeling well with this . Notes up to 10mi/day when participating in thePhyscient production Seen by PCP March 13, 2022. [...] pain, currently taking gabapentin. Plans to see social media specialist, referred by exhaust emissions automotive technician. Referred by exhaust emissions automotive technician to see orthopedic physician for her hip. [...] fluticasone (FLONASE) 50 mcg/actuation nasal sprayUse 1 [place] in each nostril once daily.Disp: 3 EachRfl: [...] hours as needed.Disp: 1 EachRfl: 2 vit A,C,Z-Lxwi-Kutnhb (OCUVITE PRESERVISION) 2,148 mcg-113 mg-45 mg-17.4mg tabTake [...] puffs once da (more content not included)... [facility] 10-27-2022 History of Presen t illness [...] bicuspid valve, lung nodule bronchiectasis and COPD. Vehicle Glass Technician: Florence Terry MD, last seen July 20, 2022. Seen for follow-up of lung nodules bronchiectasis. Noted are a likely etiology for underlying bronchiectasis. Noted new nodularity of lung, likely represents inflammatory nodules. Will need follow-up CT. No this may improve with bronchopulmonary hygiene. Spiriva and intermittent albuterol has helped with cough. Stable. A&P Mechanic: William Ambriz BAV, aortic stenosis , last seen in cardiology August 29, 2022 by Rachelle Lai CNP. Continued on current treatments unchanged. Follow-up echo advised, not yet scheduled.. Private Sector Executive: [facility]. Continues with methotrexate, Humira.seen by Dr. Roque Zacarias 06/26/2022 for RA, osteoporosis, degenerative disc disease, arthritis of foot, osteoarthritis of bilateral hands. DEXA scan completed, showed osteoporosis. All yes trying recommended restart of Reclast. Weight: stable Exercise: walking miles most days, feeling well with this . Notes up to 10mi/day when participating in thePhyscient production Seen by PCP March 13, 2022. [...] pain, currently taking gabapentin. Plans to see social media specialist, referred by exhaust emissions automotive technician. Referred by exhaust emissions automotive technician to see orthopedic physician for her hip. [...] fluticasone (FLONASE) 50 mcg/actuation nasal spray^Use 1 [place] in each nostril once daily.^Disp: 3 Each^Rfl: [...] hours as needed.^Disp: 1 Each^Rfl: 2 vit A,C,G-Szal-Baruaz (OCUVITE PRESERVISION) 2,148 mcg-113 mg-45 mg-17.4mg tab^Take [...] positive rheumatoid factor (HCC) 03/07/2015 Dr. Hurley ([facility]) Unspecified hemorrhoids without mention of complication [...] ICD9: 724.3, ICD10: M54.41 Plans to see social media specialist 6. Hip pain, acute, left - ICD9: 719.45, ICD10: M25.552 7. 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 rheumatoid factor (HCC) - ICD9: 714.0, ICD10: M05.79 Followed by [facility] 8. Bronchiectasis without complication (HCC) - ICD9: 494.0, ICD10: J47.9 9. Lung nodule - ICD9: 793.11, ICD10: R91.[address] Terry pulmonology 10. Aortic stenosis with bicuspid valve - ICD9: 746.3, 746.4, ICD10: Q23.0, Q23.1 Has follow-up appointment scheduled with cardiology, no chest pain dizziness lightheadedness presyncope or syncope noted. Jimbo Carias APRN.CNS Medical Decision Making: Problems: Moderate: 2+ stable chronic illnesses Risk: Moderate: Drug management Medical Decision Making Level: 4 - Moderate documented in this encounter [facility] 10-27-2022 Instructions Jimbo Carias APRN.CNS - 10/27/2022 9:01 AM EDT Consider getting new COVID booster when it becomes available either in clinic or at pharmacy. documented in this encounter [facility] 10-26-2022 Note HNO ID: [id number] Author: Jimbo Carias APRN.CNS Service: ? Author Type: Nurse Specialist Type: Progress Notes Filed: 10/26/2022 4:39 PM Note Text: Continue with Coumadin dose unchanged and check INR in 2 weeks [facility] 10-26-2022 History of Presen t illness Narrative Continue with Coumadin dose unchanged and check INR in 2 weeks patient had inr completed at [facility] patients inr is 1.7 (patients inr range [...] since dose change documented in this encounter [facility] 10-26-2022 Note HNO ID: [id number] Author: Flex Means RN Service: ? Author Type: ? Type: Progress Notes Filed: 10/26/2022 4:39 PM Note Text: patient had inr completed at [facility] patients inr is 1.7 (patients inr range [...] the first normal reading since dose change [facility] 10-12-2022 Note HNO ID: [id number] Author: Maritza Preston LPN Service: ? Author Type: ? Type: Progress Notes Filed: 10/13/2022 10:06 AM Note Text: Left message to call AND speak to nurse re: Coumadin. Maritza Preston LPN [facility] 10-12-2022 Note HNO ID: [id number] Author: Jimbo Carias APRN.CLERICAL WAREHOUSEMAN Service: ? Author Type: Nurse Specialist Type: Progress Notes Filed: 10/13/2022 10:06 AM Note Text: Okay to change coumadin dose to 5mg Mon,Wed and 7.5mg all other days and recheck inr in 2 weeks [facility] 10-12-2022 History of Presen t illness Narrative Left message to call & speak to nurse re: Coumadin. Maritza Preston LPN Okay to change coumadin dose to 5mg Mon,Wed and 7.5mg all other days and recheck inr in 2 weeks patient had inr completed at [facility] patients inr is 1.5 (patients inr range [...] advise on recommendation documented in this encounter [facility] 10-12-2022 Note HNO ID: [id number] Author: Flex Means RN Service: ? Author Type: ? Type: Progress Notes Filed: 10/13/2022 10:06 AM Note Text: patient had inr completed at [facility] patients inr is 1.5 (patients inr range [...] 10/26/22 Please review and advise on recommendation [facility] 10-09-2022 Miscellaneous Notes Patient does not take twice daily every day. Benefits have outweighed the risks. Has been to cardiology and rheumatology for follow up. Labs through [facility]--CBC and LFTs and Cr fine. The following [...] of last office visit in primary care: GEREMIAS 07/11/22 NOV 10/27/22 Last 2 Encounter Wt Readings: Date: Wt: 08/29/2022 58.5 kg (129 lb) 07/20/2022 58.1 kg (128 lb) Please advise. Thank you. Thi Strait, OCCA documented in this encounter [facility] 09-28-2022 Note HNO ID: [id number] Author: Jimbo Carias APRN.CLERICAL WAREHOUSEMAN Service: ? Author Type: Nurse Specialist Type: Progress Notes Filed: 09/28/2022 4:12 PM Note Text: Continue with Coumadin dose unchanged and check INR in 2 weeks [facility] 09-28-2022 Note HNO ID: [id number] Author: Flex Means RN Service: ? Author Type: ? Type: Progress Notes Filed: 09/28/2022 4:12 PM Note Text: patient had inr completed at [facility] patients inr is 1.8 (patients inr range [...] the first normal reading since dose change [facility] 09-25-2022 Miscellaneous Notes Called PT and [...] recommend that she follow up with Dr. Ambirz in 6 months with repeat echo in [...] Thanks ~ JJ documented in this encounter [facility] 09-15-2022 Miscellaneous Notes Pt called and is [...] is: 5 mg on Mon, Wed and Sun and 7.5 mg all other days Last [...] and pt findings. documented in this encounter [facility] 09-07-2022 Note HNO ID: [id number] Author: Flex Means RN Service: ? Author Type: ? Type: Progress Notes Filed: 09/07/2022 4:08 PM Note Text: PATIENT NOTIFIED OF INFORMATION [facility] 09-07-2022 Note HNO ID: [id number] Author: Jimbo Carias APRN.CLERICAL WAREHOUSEMAN Service: ? Author Type: Nurse Specialist Type: Progress Notes Filed: 09/07/2022 4:08 PM Note Text: Okay for 5 mg Coumadin Sunday and 7.5 mg all other days. Recheck INR in 1 week [facility] 09-07-2022 History of Presen t illness Narrative PATIENT NOTIFIED OF INFORMATION Okay for 5 mg Coumadin Sunday and 7.5 mg all other days. Recheck INR in 1 week patient had inr completed at [facility] patients inr is 2.4 (patients inr range is 1.7-2.2) patient is currently taking 5mg Sun,Sun and 7.5mg all other days patients last [...] 3 weeks patient has been scheduled at [facility] for an inr follow up 09/14/22 (order is already in place) please review and advise on recommendation documented in this encounter [facility] 09-07-2022 Note HNO ID: [id number] Author: Flex Means RN Service: ? Author Type: ? Type: Progress Notes Filed: 09/07/2022 4:08 PM Note Text: patient had inr completed at [facility] patients inr is 2.4 (patients inr range [...] 3 weeks patient has been scheduled at [facility] for an inr follow up 09/14/22 (order is already in place) please review and advise on recommendation [facility] 08-29-2022 Note HNO ID: [id number] Author: Rachelle Lai APRN.CNP Service: ? Author Type: Nurse Practitioner Type: Progress Notes Filed: 09/11/2022 10:01 AM Note Text: [facility] [place] [facility] Department of Cardiovascular Medicine SECTION [...] which included preparing to see the patient, [id number] patient care, completing clinical documentation, performing a [...] prior to the follow up. Rachelle Lai APRN.PHARMACEUTICAL PHYSICIAN Cardiology Nurse Practitioner Section of Regional Cardiology [place] Dept of Cardiovascular Medicine [facility] [place] [address] [place] [address] Office Office August 29, 2022 7:46 AM This note was partially generated using [employer] voice recognition system and may contain errors [...] - Exam was compared with the prior echocardiographic exam performed on 03/14/2018, AV disease has progressed. :5 (more content not included)... [facility] 08-29-2022 Instructions Rachelle Lai APRN.SANTY - 08/29/2022 9:51 AM EDT Please schedule [...] in 6 months documented in this encounter [facility] 08-29-2022 History of Presen t illness Narrative Images from the original note were not included. [facility] [place] [facility] Department of Cardiovascular Medicine SECTION [...] which included preparing to see the patient, [id number] patient care, completing clinical documentation, performing a [...] prior to the follow up. Rachelle Lai APRN.[facility] Cardiology Nurse Practitioner Section [facility] Cardiology [facility] Dept of Cardiovascular Medicine [facility] [place] [address] [place] [address] Office Office August 29, 2022 7:46 AM This note was partially generated using [employer] voice recognition system and may contain errors [...] nodule with faint calcifications suggesting calcified granuloma. Packager Or Packer And Weigher: [facility] Transcribe Date/Time: Jul 24 2022 10:02A Dictated [...] Anemia Bone marrow involvement with histoplasmosis Bronchiectasis ([facility]) COPD (chronic obstructive pulmonary disease) ([facility]) Disseminated histoplasmosis Colitis, immunosuppression, 01/2018. Diverticulosis of colon (without mention of hemorrhage) Diverticulosis DVT, recurrent, lower extremity, acute ([facility]) 12/10/2014 Esophageal reflux Hiatal hernia 02/25/2018 Hypertension Lung nodule Personal history of unspecified urinary disorder 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 rheumatoid factor ([facility]) 03/07/2015 Dr. Hurley ([facility]) Unspecified hemorrhoids without mention of complication [...] PFSH and ROS obtained by others. Rachelle Lai APRN.PHARMACEUTICAL PHYSICIAN CURRENT MEDICATIONS: Current Outpatient Medications Medication Sig budesonide-formoterol (SYMBICORT) 160-4.5 mcg/actuation inhaler Inhale 2 Puffs as instructed twice daily. fluticasone (FLONASE) 50 mcg/actuation nasal spray Use 1 [place] in each nostril once daily. warfarin (COUMADIN) 5 mg tablet Take 7.5 mg , Anabel,Fri, Sat, Sun; and 5 mg on Sunday and Sunday pantoprazole DR (PROTONIX) 40 mg tablet Take 1 tablet by mouth once daily. albuterol HFA (PROAIR HFA) 90 mcg/actuation inhaler Inhale 2 Puffs as instructed every 4 hours as needed. vit A,C,S-Peot-Pculjx (OCUVITE PRESERVISION) 2,148 mcg-113 mg-45 mg-17.4mg tab [...] INTRAVENOUS DIRECTED PRN documented in this encounter [facility] 08-15-2022 Miscellaneous Notes GEREMIAS 07/20/22 Patient phones requesting refills as follows: Requested Prescriptions Pending Prescriptions Disp Refills budesonide-formoterol (SYMBICORT) 160-4.5 mcg/actuation inhaler Sig: Inhale as instructed twice daily. Please review and advise. Magalie Ngo LPN documented in this encounter [facility] 08-13-2022 Miscellaneous Notes Glad doing better. Thanks for update. Pt calls office /c update. She states she is on her 4th day of prednisone and she is feeling much better, feeling great. She states her pain is cut in half now. Bakari Catalan LPN documented in this encounter [facility] 08-10-2022 Note HNO ID: [id number] Author: Maritza Preston LPN Service: ? Author Type: ? Type: Progress Notes Filed: 08/10/2022 4:48 PM Note Text: Left below on identified vm, asked Patient to call back to let the office know she did receive. Maritza Preston LPN [facility] 08-10-2022 Note HNO ID: [id number] Author: Jimbo Carias APRN.CLERICAL WAREHOUSEMAN Service: ? Author Type: Nurse Specialist Type: Progress Notes Filed: 08/10/2022 4:48 PM Note Text: Continue with Coumadin dose unchanged and check INR in 4 weeks [facility] 08-10-2022 Note HNO ID: [id number] Author: Flex Means RN Service: ? Author Type: ? Type: Progress Notes Filed: 08/10/2022 4:48 PM Note Text: patient had inr completed at [facility] patients inr is 2.1 (patients inr range [...] 4 weeks (09/07/22) for follow up INR. [facility] 07-27-2022 Note HNO ID: [id number] Author: Maritza Preston LPN Service: ? Author Type: ? Type: Progress Notes Filed: 07/27/2022 3:20 PM Note Text: Below left on identified vm. Patient is already scheduled in 2 weeks. Maritza Preston LPN [facility] 07-27-2022 Note HNO ID: [id number] Author: Jimbo Carias APRN.CLERICAL WAREHOUSEMAN Service: ? Author Type: Nurse Specialist Type: Progress Notes Filed: 07/27/2022 3:20 PM Note Text: Continue with current dosing and check INR 2 weeks [facility] 07-27-2022 Note HNO ID: [id number] Author: Flex Means RN Service: ? Author Type: ? Type: Progress Notes Filed: 07/27/2022 3:20 PM Note Text: patient had inr completed at [facility] patients inr is 1.7 ([facility] inr range is 1.7-2.2) patient is currently [...] the first normal reading since dose change [facility] 07-20-2022 Note HNO ID: [id number] Author: Florence Terry MD Service: ? Author Type: Physician Type: Progress Notes Filed: 07/25/2022 12:42 PM Note Text: . [facility] [place] Note Patient name: Haydee Bustamante PCP: Claudine Durán MD CC: Follow-up chest CT HPI: Haydee Bustamante 77 year old female former 10 pack year smoker with PMH significant for RA (MTX, Humira), HTN, h/o disseminated Histoplasmosis, bronchiectasis, , VTE, pulmonary nodules, who presents for follow-up. Current inhaled therapy with Symbicort and Spiriva. At [facility] with al, she was a new patient to al formerly followed by Dr. Andujar. She had [...] DATE OF EXAM: Jul 20 2022 9:22AM [facility] 0541 - CT CHEST WO IVCON [...] abdomen within the limits of noncontrast technique.. Liquor Bridge Operator Helper (topogram) images: IVC filter present IMPRESSION: Findings [...] prominent, not pathologi (more content not included)... [facility] 07-20-2022 Note HNO ID: [id number] Author: RT Edwin(R) Service: ? Author Type: Sound Truck Operator Type: Progress Notes Filed: 07/20/2022 9:35 AM [...] RT Maryann(R) July 20, 2022 9:35 AM [facility] 07-20-2022 History of Presen t illness Narrative Images from the original note were not included. . [facility] [place] Note Patient name: Haydee Bustamante PCP: Claudine Durán MD CC: Follow-up chest CT HPI: Haydee Bustamante 77 year old female former 10 pack year smoker with PMH significant for RA (MTX, Humira), HTN, h/o disseminated Histoplasmosis, bronchiectasis, , VTE, pulmonary nodules, who presents for follow-up. Current inhaled therapy with Symbicort and Spiriva. At [facility] with me, she was a new patient [...] DATE OF EXAM: Jul 20 2022 9:22AM [facility] 0541 - CT CHEST WO IVCON [...] abdomen within the limits of noncontrast technique.. Liquor Bridge Operator Helper (topogram) images: IVC filter present IMPRESSION: Findings [...] hemorrhage) Diverticulosis DVT, recurrent, lower extremity, acute ([facility]) 12/10/2014 Esophageal reflux Hiatal hernia 02/25/2018 Hypertension Lung nodule Personal history of unspecified urinary disorder 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 rheumatoid factor ([facility]) 03/07/2015 Dr. Hurley ([facility]) Unspecified hemorrhoids without mention of complication [...] hours as needed.^Disp: 1 Each^Rfl: 2 vit A,C,D-Lflf-Ywcblv (OCUVITE PRESERVISION) 2,148 mcg-113 mg-45 mg-17.4mg tab^Take [...] fluticasone (FLONASE) 50 mcg/actuation nasal spray^Use 1 [place] in each nostril once daily.^Disp: 3 Each^Rfl: [...] SPINE FUSN,POST INTERBODY 2012 Dr. Armando at [facility]. Diskectomy and laminectomy PAST SURGICAL HISTORY OF [...] her underlying bronchiectasis Florence Terry MD [facility] [place] documented in this encounter [facility] 07-20-2022 History of Presen t illness [...] 2022 9:35 AM documented in this encounter [facility] 07-13-2022 Note HNO ID: [id number] Author: Flex Means RN Service: ? Author Type: ? Type: Progress Notes Filed: 07/13/2022 4:39 PM Note Text: pcp agrees with information PATIENT NOTIFIED OF INFORMATION [facility] 07-13-2022 Note HNO ID: [id number] Author: Flex Means RN Service: ? Author Type: ? Type: Progress Notes Filed: 07/13/2022 4:39 PM Note Text: patient had inr completed at [facility] patients inr is 1.5 (patients inr range [...] 2 week inr follow up inr 07/27/22 [facility] 07-11-2022 Note HNO ID: [id number] Author: Jimbo Carias APRN.CLERICAL WAREHOUSEMAN Service: ? Author Type: Nurse Specialist Type: Progress Notes Filed: 07/11/2022 11:13 AM Note Text: SUBJECTIVE: ALPHA-1 ANTITRYPSIN DEFICIENCY SCREENING Never done ADVANCE DIRECTIVE DISCUSSION due on 02/19/2022 HPI Haydee Bustamante is a 77 year [...] and COPD. HPI excerpted from previous visits: A&P Mechanic: William GOTTI, aortic stenosis - has 01/2021 appt Vehicle Glass Technician: Julio Medrano / Johanna Benites 6 month follow up with PFT 05/2020 Infectious disease:Ayanna Lai -histoplasmosis on Humira -follow-up in 6 months 09/2019 Private Sector Executive:: Today reports had toe infection has completely healed. States that industrial hygienist discussed possible amputation of toe but would prefer not to go that route. May see an alternate industrial hygienist at [facility]. Weight: stable Exercise: walking miles most days, feeling well with this . 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 Noted macular degeneration, a Raynaud's 2 daily advised 1 year follow-up with eye doctor. Since last seen she has gone to [facility], seen by Dr. Roque Zacarias 06/26/2022 for RA, osteoporosis, degenerative disc disease, arthritis of foot, osteoarthritis of bilateral hands. 3 mo follow up and Dexa advised. Has new shoes from Rani Cowart at [facility] / [employer]. Notes foot surgery and healed foot wound. RA: controlled currently, following with exhaust emissions automotive technician. Last seen by Dr. Ambriz 07/2021 for [...] ALLERGIES Allergen Reactions Penicillins Hives Medications vit A,C,Q-Gxxn-Sxotvw (OCUVITE PRESERVISION) 2,148 mcg-113 mg-45 mg-17.4mg tabTake [...] fluticasone (FLONASE) 50 mcg/actuation nasal sprayUse 1 [place] in each nostril once daily.Disp: 3 EachRfl: 3 tiotropium bromide (SPIRIVA RESPIMAT) 2.5 mcg/actuation inhalerInhale 2 Puffs as instructed once daily. Inhale two puffs once daily.Disp: 3 EachRfl: 3 Irbesartan-hydroCHLOROthiazide 150-12.5 mg per tabletTake 1 tablet by mouth once daily.Disp: 90 tabletRfl: 3 SYMBICORT 160-4.5 mcg/actuation inhalerUSE 2 INHALATIONS TWICE A DAY INSTRUCT (more content not included)... [facility] 06-29-2022 Note HNO ID: [id number] Author: Jimbo Carias APRN.CLERICAL WAREHOUSEMAN Service: ? Author Type: Nurse Specialist Type: Progress Notes Filed: 06/29/2022 2:16 PM Note Text: Continue with Coumadin dosing unchanged and check INR in 2 weeks [facility] 06-29-2022 History of Presen t illness Narrative Continue with Coumadin dosing unchanged and check INR in 2 weeks patient had inr completed at [facility] patients inr is 2.1 (patients inr range [...] since dose change documented in this encounter [facility] 06-29-2022 Note HNO ID: [id number] Author: Flex Means RN Service: ? Author Type: ? Type: Progress Notes Filed: 06/29/2022 2:16 PM Note Text: patient had inr completed at [facility] patients inr is 2.1 (patients inr range [...] the first normal reading since dose change [facility] 06-22-2022 Note HNO ID: [id number] Author: Maritza Preston LPN Service: ? Author Type: ? Type: Progress Notes Filed: 06/22/2022 3:37 PM Note Text: Patient notified of change in dosage, verbalized understanding. Anticoag Tracker updated. Maritza Preston LPN [facility] 06-22-2022 Note HNO ID: [id number] Author: Jimbo Carias APRN.CLERICAL WAREHOUSEMAN Service: ? Author Type: Nurse Specialist Type: Progress Notes Filed: 06/22/2022 3:37 PM Note Text: Coumadin 5 mg today and tomorrow then 5 mg Sunday and 7.5 mg all other days. Recheck INR in 1 week [facility] 06-22-2022 Note HNO ID: [id number] Author: Flex Means RN Service: ? Author Type: ? Type: Progress Notes Filed: 06/22/2022 3:37 PM Note Text: patient had inr completed at [facility] patients inr is 2.9 (patients inr range [...] 1 week follow up inr on 06/29/22 [facility] 06-09-2022 Note HNO ID: [id number] Author: Flex Means RN Service: ? Author Type: ? Type: Progress Notes Filed: 06/09/2022 4:06 PM Note Text: pcp agrees [facility] 06-09-2022 Note HNO ID: [id number] Author: Flex Means RN Service: ? Author Type: ? Type: Progress Notes Filed: 06/09/2022 4:06 PM Note Text: patient had inr completed at [facility] patients inr is 1.6 (patients inr range [...] INR since coumadin is just slight under [facility] 05-23-2022 Miscellaneous Notes Noted Message left [...] rescheduled. Lani from Dr Rani Cowart's office [facility] states they received a signed clearance [...] is scheduled for surgery tomorrow morning. PH: [phone] X [phone] FAX: [phone]. Maricarmen Jacobs LPN documented in this encounter [facility] 05-04-2022 Note HNO ID: [id number] Author: Jimbo Carias APRN.CLERICAL WAREHOUSEMAN Service: ? Author Type: Nurse Specialist Type: Progress Notes Filed: 05/04/2022 3:52 PM Note Text: Continue Coumadin dose unchanged and check INR in 1 month [facility] 05-04-2022 History of Presen t illness Narrative Continue Coumadin dose unchanged and check INR in 1 month patient had inr completed at [facility] patients inr is 2.0 (patients inr range [...] follow up INR. documented in this encounter [facility] 05-04-2022 Note HNO ID: [id number] Author: Flex Means RN Service: ? Author Type: ? Type: Progress Notes Filed: 05/04/2022 3:52 PM Note Text: patient had inr completed at [facility] patients inr is 2.0 (patients inr range [...] 1 month (06/08/22) for follow up INR. [facility] 04-06-2022 Note HNO ID: [id number] Author: Jimbo Carias APRN.CNS Service: ? Author Type: Nurse Specialist Type: Progress Notes Filed: 04/06/2022 3:05 PM Note Text: Continue with Coumadin dose unchanged and check INR in 4 weeks [facility] 04-06-2022 History of Presen t illness Narrative Continue with Coumadin dose unchanged and check INR in 4 weeks patient had inr completed at [facility] patients inr is 2.0 (patients inr range [...] follow up INR. documented in this encounter [facility] 04-06-2022 Note HNO ID: [id number] Author: Flex Means RN Service: ? Author Type: ? Type: Progress Notes Filed: 04/06/2022 3:05 PM Note Text: patient had inr completed at [facility] patients inr is 2.0 (patients inr range [...] 4 weeks (05/04/22) for follow up INR. [facility] 03-30-2022 Note HNO ID: [id number] Author: Flex Means RN Service: ? Author Type: ? Type: Progress Notes Filed: 03/30/2022 3:57 PM Note Text: PATIENT NOTIFIED OF INFORMATION via detailed message [facility] 03-30-2022 History of Presen t illness Narrative PATIENT NOTIFIED OF INFORMATION via detailed message Coumadin 5 mg today then resume previous dosing -5 mg Gil Sunday and 7.5 mg all other days and check INR in 1 week patient had inr completed at [facility] patients inr is 2.3 (patients inr range [...] inr on 04/06/22 documented in this encounter [facility] 03-30-2022 Note HNO ID: [id number] Author: Jimbo Carias APRN.CLERICAL WAREHOUSEMAN Service: ? Author Type: Nurse Specialist Type: Progress Notes Filed: 03/30/2022 3:57 PM Note Text: Coumadin 5 mg today then resume previous dosing -5 mg Sunday and 7.5 mg all other days and check INR in 1 week [facility] 03-30-2022 Note HNO ID: [id number] Author: Flex Means RN Service: ? Author Type: ? Type: Progress Notes Filed: 03/30/2022 3:57 PM Note Text: patient had inr completed at [facility] patients inr is 2.3 (patients inr range [...] 1 week follow up inr on 04/06/22 [facility] 03-13-2022 History of Presen t illness Narrative This note was created using [employer]ict[employer]. Subjective Haydee Bustamante is a 76 year old female. Patient presents with: 4 month follow up SUBJECTIVE: Haydee Bustamante is a 76 year old year old lady here today for 4 month follow up appointment for review of medical conditions. Following with eye doctor. Has early macular degeneration. Given glasses for it. Having foot surgery at [facility] May 19. Told will be extensive--straighten [...] Anemia Bone marrow involvement with histoplasmosis Bronchiectasis ([facility]) COPD (chronic obstructive pulmonary disease) ([facility]) Disseminated histoplasmosis Colitis, immunosuppression, 01/2018. Diverticulosis of colon (without mention of hemorrhage) Diverticulosis DVT, recurrent, lower extremity, acute ([facility]) 12/10/2014 Esophageal reflux Hiatal hernia 02/25/2018 Hypertension Personal history of unspecified urinary disorder 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 rheumatoid factor ([facility]) 03/07/2015 Dr. Hurley ([facility]) Unspecified hemorrhoids without mention of complication Hemorrhoids Current Outpatient Medications Medication Sig naproxen (NAPROSYN) 500 mg tablet Take 1 tablet by mouth twice daily as needed. Take with food gabapentin (NEURONTIN) 300 mg capsule Take 1 capsule by mouth twice daily. fluticasone (FLONASE) 50 mcg/actuation nasal spray Use 1 [place] in each nostril once daily. tiotropium bromide (SPIRIVA RESPIMAT) 2.5 mcg/actuation inhaler Inhale 2 Puffs as instructed once daily. Inhale two puffs once daily. Irbesartan-hydroCHLOROthiazide 150-12.5 mg per tablet Take 1 tablet by mouth once daily. SYMBICORT 160-4.5 mcg/actuation inhaler USE 2 INHALATIONS TWICE A DAY INSTRUCTED pantoprazole (PROTONIX) 40 mg tablet Take 1 tablet [...] factor (HCC) M05.79 5. COPD without exacerbation (HCC) J44.9 6. Bronchiectasis without complication (HCC) J47.9 7. Acquired hammertoe of left foot [...] and as needed for preop eval for industrial hygienist. Noted that has not needed bridging Lovenox when has been off coumadin. Continue present management with anticoagulation. .BP controlled. Continue present management. Claudine Durán MD documented in this encounter [facility] 02-02-2022 History of Presen t illness Narrative Continue with Coumadin dose unchanged check INR in 4 weeks patient had inr completed at [facility] patients inr is 2.0 (patients inr range [...] follow up INR. documented in this encounter [facility] 01-17-2022 Miscellaneous Notes Last office visit: 11/10/21 Next appointment scheduled: 03/13/22 Patient phones requesting refills as follows: Requested Prescriptions Pending Prescriptions Disp Refills naproxen (NAPROSYN) 500 mg tablet 120 tablet 3 Sig: Take 1 tablet by mouth twice daily as needed. Take with food Please review and advise. Geni Cintron LPN documented in this encounter [facility] 01-11-2022 Miscellaneous Notes Spoke with pt and information listed below given. Pt verbalizes understanding. She will get the labs when they are due. Lynne Mann LPN Patient gets labs done for exhaust emissions automotive technician so labs are up to date The [...] Lynne Mann LPN documented in this encounter [facility] 01-05-2022 History of Presen t illness Narrative per dr haynes he agrees with information patient had inr completed at [facility] patients inr is 2.2 (patients inr range [...] follow up INR. documented in this encounter [facility] 12-22-2021 History of Presen t illness Narrative PATIENT NOTIFIED OF INFORMATION Recommend Coumadin 7.5 mg today. Then resume usual dosing 5 mg Sunday and 7.5 mg all other days. Check INR 2 weeks patient had inr completed at [facility] patients inr is 1.4 (patients inr range is 1.7-2.2) patient is currently taking 5mg Sun,Sun,Sun and 7.5mg all other days patients last [...] inr on 01/05/22 documented in this encounter [facility] 11-29-2021 History of Presen t illness Narrative Images from the original note were not included. . [facility] [place] Note Patient name: Haydee Bustamante PCP: Claudine Durán MD CC: Follow-up lung disease HPI: Haydee Bustamante 76 year old female former [id number] smoker having quit in 1989 with PMH [...] Bronchiectasis (HCC) COPD (chronic obstructive pulmonary disease) ([facility]) Disseminated histoplasmosis Colitis, immunosuppression, 01/2018. Diverticulosis of colon (without mention of hemorrhage) Diverticulosis DVT, recurrent, lower extremity, acute ([facility]) 12/10/2014 Esophageal reflux Hiatal hernia 02/25/2018 Hypertension Personal history of unspecified urinary disorder 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 rheumatoid factor ([facility]) 03/07/2015 Dr. Hurley ([facility]) Unspecified hemorrhoids without mention of complication Hemorrhoids ALLERGIES Allergen Reactions Penicillins Hives fluticasone (FLONASE) 50 mcg/actuation nasal spray^Use 1 [place] in each nostril once daily.^Disp: 3 Each^Rfl: [...] mg tablet^Take 7.5 mg , Sun, Sun, Sun, Sun; [...] SPINE FUSN,POST INTERBODY 2012 Dr. Armando at [facility]. Diskectomy and laminectomy PAST SURGICAL HISTORY OF [...] treatment per rheumatology Florence Terry MD [facility] [place] documented in this encounter [facility] 11-24-2021 Miscellaneous Notes error documented in this encounter [facility] 11-10-2021 History of Presen t illness Narrative [...] and COPD. HPI excerpted from previous visit: A&P Mechanic: William GOTTI, aortic stenosis - has 01/2021 appt Vehicle Glass Technician: Julio Medrano / Johanna Benites 6 month follow up with PFT 05/2020 Infectious disease:Ayanna Lai -histoplasmosis on Humira -follow-up in 6 months 09/2019 Private Sector Executive:: Today reports had toe infection has completely healed. States that industrial hygienist discussed possible amputation of toe but would prefer not to go that route. May see an alternate industrial hygienist at [facility]. States took blood pressure medication today. Continues [...] 12 mos RA: controlled currently, following with exhaust emissions automotive technician. OAC: no bleeding difficulties. Occasional bruising. Spiriva [...] mg tablet^Take 7.5 mg , Sun, Sun, Sun, Sun; [...] fluticasone (FLONASE) 50 mcg/actuation nasal spray^Use 1 [place] in each nostril once daily.^Disp: 3 Bottle^Rfl: 3 (Patient not taking: No sig reported) PAST MEDICAL HISTORY Diagnosis Date Blood dyscrasia Disseminated histoplasmosis Colitis, immunosuppression, 01/2018. Diverticulosis of colon (without mention of hemorrhage) Diverticulosis DVT, recurrent, lower extremity, acute (HCC) 12/10/2014 Esophageal reflux Hiatal hernia 02/25/2018 Hypertension Personal history of unspecified urinary disorder 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 rheumatoid factor ([facility]) 03/07/2015 Dr. Hurley ([facility]) Unspecified hemorrhoids without mention of complication [...] Abs Lymph 1.00 - 4.00 k/uL 1.64 Spencer% % 8.0 Abs Spencer <0.87 k/uL 0.60 Eosin% % 2.7 Abs [...] (HCC) - ICD9: 496, ICD10: J44.9 - [id number] BL 3. Encounter for immunization - ICD9: [...] ICD9: 746.3, 746.4, ICD10: Q23.0, Q23.1 Jimbo Carias, INTERFACE ANALYST.CLERICAL WAREHOUSEMAN] Jimbo Carias, INTERFACE ANALYST.CLERICAL WAREHOUSEMAN Medical Decision Making: Problems: Moderate: 1+ chronic illnesses with change and 2+ stable chronic illnesses Risk: Moderate: Drug management Medical Decision Making Level: 4 - Moderate documented in this encounter [facility] 11-09-2021 Miscellaneous Notes Filed order patients orders for coumadin clinic inr's has at this time. new order has been pended for approval if possible so that patient can continue to get inr's completed thru the coumadin clinic. coumadin clinic nurse only needs called if order can not be approved. documented in this encounter [facility] 11-08-2021 Miscellaneous Notes Patient has been identified [...] Ruby Tobin RN documented in this encounter [facility] 11-01-2021 Instructions Yonas Louise - 11/01/2021 9:29 AM EDT Your ulceration is now healed Ok to continue with padding as needed F/u as needed documented in this encounter [facility] 11-01-2021 History of Presen t illness Narrative [...] hemorrhage) Diverticulosis DVT, recurrent, lower extremity, acute ([facility]) 12/10/2014 Esophageal reflux Hiatal hernia 02/25/2018 Hypertension Personal history of unspecified urinary disorder 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 rheumatoid factor ([facility]) 03/07/2015 Dr. Hurley ([facility]) Unspecified hemorrhoids without mention of complication [...] (FLONASE) 50 mcg/actuation nasal spray Use 1 [place] in each nostril once daily. (Patient not [...] SPINE FUSN,POST INTERBODY 2011 Dr. Armando at [facility]. Diskectomy and laminectomy PAST SURGICAL HISTORY OF 03/07/1999 removal facial lesion PAST SURGICAL HISTORY OF 08/17/14 excision soft tissue mass left index finger TONSILLECTOMY PRIMARY/SECONDARY <AGE 14 TRANSCATH JEVON ALBRECHT 12/28/06 Physical Exam: OBJECTIVE: Constitutional: Pt is [...] stopped wrapping it. documented in this encounter [facility] 10-27-2021 History of Presen t illness Narrative patient had inr completed at [facility] patients inr is 1.6 (patients inr range [...] follow up INR. documented in this encounter [facility] 10-18-2021 Instructions Yonas Louise - 10/18/2021 9:[address] aquacel on ulceration daily Place lambs wool or guaze horizontally between the interspace Secure lambs wool or guaze with blanca wrap or tape Wear surgical shoe or wide sneaker or even sandal to avoid pressure on 5th toe documented in this encounter [facility] 10-18-2021 History of Presen t illness Narrative [...] hemorrhage) Diverticulosis DVT, recurrent, lower extremity, acute ([facility]) 12/10/2014 Esophageal reflux Hiatal hernia 02/25/2018 Hypertension Personal history of unspecified urinary disorder 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 rheumatoid factor ([facility]) 03/07/2015 Dr. Hurley ([facility]) Unspecified hemorrhoids without mention of complication [...] (FLONASE) 50 mcg/actuation nasal spray Use 1 [place] in each nostril once daily. (Patient not [...] SPINE FUSN,POST INTERBODY 2011 Dr. Armando at [facility]. Diskectomy and laminectomy PAST SURGICAL HISTORY OF [...] Louise DPM Podiatry [address] [facility] [address] Dept: [phone] Dept AMB ROOMING INTAKE FLOWSHEET DATA Pain Pain Level: 4 Pain Location: Toe Description: Sharp, Raw, Sore Duration Amount of Time: 2 Duration Units: Months Frequency: Intermittent Intervention/Comfort measure: Reposition, Relaxation Patient presents with: Right Foot - Established Patient, Follow Up, Pain, Blister Imelda Quijano LPN documented in this encounter [facility] 10-18-2021 Miscellaneous Notes Pt only has enough [...] Muna Porter RN documented in this encounter [facility] 10-12-2021 History of Presen t illness Narrative [...] 2021 10:06 AM documented in this encounter [facility] 10-12-2021 History of Presen t illness Narrative [...] 2021 9:56 AM documented in this encounter [facility] 09-29-2021 History of Presen t illness Narrative Continue current Coumadin dose unchanged and check INR in 4 weeks patient had inr completed at [facility] patients inr is 2.0 (patients inr range [...] follow up INR. documented in this encounter [facility] 09-20-2021 Instructions Jimbo Carias APRN.TYLOR - 09/20/2021 1:55 PM EDT Keep your toe clean dry and . Was with soap and water daily, dry thoroughly. Use lambswool between toes. Avoid tight shoes documented in this encounter [facility] 09-20-2021 History of Presen t illness Narrative [...] and COPD. HPI excerpted from previous visit: A&P Mechanic: William Ambriz BAV, aortic stenosis - has 01/2021 appt Vehicle Glass Technician: Julio Medrano / Johanna Benites 6 month follow up with PFT 05/2020 Infectious disease:Ayanna Lai -histoplasmosis on Humira -follow-up in 6 months 09/2019 Private Sector Executive:: Home blood pressure and heart rate: no [...] 12 mos RA: controlled currently, following with exhaust emissions automotive technician. Histoplasmosis: notes resolved symptoms. OAC: no bleeding difficulties. Occasional bruising. Spiriva and intermittent albuterol has helped with cough. Presents today for foot lesion. She notes she is been wearing tight shoes for a [place] [employer] production at [facility] for about a month. She notes that [...] (FLONASE) 50 mcg/actuation nasal spray Use 1 [place] in each nostril once daily. econazole (SPECTAZOLE) [...] positive rheumatoid factor (HCC) 03/07/2015 Dr. Hurley ([facility]) Unspecified hemorrhoids without mention of complication [...] Abs Lymph 1.00 - 4.00 k/uL 1.64 Spencer% % 8.0 Abs Spencer <0.87 k/uL 0.60 Eosin% % 2.7 Abs [...] Let us know if not improving. Jimbo Carias, INTERFACE ANALYST.CLERICAL WAREHOUSEMAN Medical Decision Making: Problems: Low: Acute, uncomplicated illness or injury Risk: Moderate: Drug management Medical Decision Making Level: 3 - Low documented in this encounter [facility] 09-05-2021 Miscellaneous Notes September 05, 2021 PID: [id number] Haydee Bustamante [address] [place] [id number] Dear Ms. Bustamante, Your recent breast imaging exam on 09/05/2021 showed a possible finding that requires additional imaging studies for a complete evaluation. Most such findings are probably benign (not cancer). If you have a healthcare provider who ordered/prescribed your screening mammogram: Please call [phone] or [phone] to schedule an appointment for your additional [...] and reports are kept on file at [facility] as part of your permanent medical record, and are available for your continuing care. Thank you for allowing us to help in meeting your health care needs. Sincerely, Dr. Bell Interpreting Radiologist [facility] (Additional imaging) documented in this encounter [facility] 09-05-2021 History of Presen t illness Narrative [...] IV DATA: Not applicable SIGNED BY: Haider Hernandez September 05, 2021 9:28 AM documented in this encounter [facility] 08-23-2021 History of Presen t illness Narrative per verbal order by production machine tender provider dr rowell she agrees with information patient had inr completed at [facility] patients inr is 2.2 (patients inr range [...] follow up INR. documented in this encounter [facility] 08-12-2021 History of Presen t illness Narrative Images from the original note were not included. [facility] SECTION OF REGIONAL CARDIOLOGY [facility] OUTPATIENT VISIT DATE August 12, 2021 PRIMARY CARE PHYSICIAN: Claudine Durán [address] [place] [address] HISTORY OF PRESENT ILLNESS: Ms. Bustamante is a 76 year old female. The patient returns for follow-up due to history of known bicuspid aortic valve stenosis. Previous stenosis has been evaluation as showed this to be mild. Additional history includes hypertension. 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 She is planning on doing [employer] again this summer. She denies chest discomfort, [...] involving multiple sites with positive rheumatoid factor ([facility]) 03/07/2015 Dr. Hurley ([facility]) Unspecified hemorrhoids without mention of complication [...] SPINE FUSN,POST INTERBODY 2012 Dr. Armando at [facility]. Diskectomy and laminectomy PAST SURGICAL HISTORY OF [...] 2 INHALATIONS TWICE A DAY INSTRUCTED pantoprazole (PROTONIX) 40 mg tablet Take 1 tablet [...] (FLONASE) 50 mcg/actuation nasal spray Use 1 [place] in each nostril once daily. econazole (SPECTAZOLE) [...] biatrial enlargement but is otherwise normal. William Ambriz, , FACC, FACOI Clinical and Preventive Cardiology Department of Medicine and Division of Cardiology, [facility] Cane Flume Watcherpastry chef [facility] Cane Flume Watcher of Congestive Heart Failure Clinic [facility] Cardiology Office Cane Flume Watcher [facility] Staff A&P Mechanic, Les Pierce Department of Cardiovascular Medicine/Heart and Vascular [place], [facility] Clinical Department Helper Profressor of Medicine, [facility] Please note: This note has been produced using speech recognition software and may contain errors related to that system including madelyn, punctuation, spelling, words, gender and phrases that may be inappropriate. documented in this encounter [facility] 07-29-2021 Miscellaneous Notes Pharmacy faxed requesting the following refill. Pending Prescriptions Disp Refills SYMBICORT 160 MCG-4.5 MCG/ACTUATION HFA AEROSOL INHALER 30.6 g 4 Sig: USE 2 INHALATIONS TWICE A DAY INSTRUCTED YULIANA: Yes Patient last appointment: [address] [place] [address] Andujar Patient Phone numbers: [phone] (home) Request is for script(s) to be escript to pharmacy. Nahomy Mercado documented in this encounter [facility] 07-25-2021 History of Presen t illness Narrative pcp agrees with information patient had inr completed at [facility] patients inr is 1.8 (patients inr range [...] follow up INR. documented in this encounter [facility] 07-11-2021 History of Presen t illness Narrative This note was created using AppAddict[employer]. Subjective Haydee Bustamante is a 76 year [...] toe surgery for now--has show. 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 Noted fell when missed top step. [...] positive rheumatoid factor (HCC) 03/07/2015 Dr. Hurley ([facility]) Unspecified hemorrhoids without mention of complication [...] (FLONASE) 50 mcg/actuation nasal spray Use 1 [place] in each nostril once daily. econazole (SPECTAZOLE) [...] Abs Lymph 1.00 - 4.00 k/uL 1.64 Spencer% % 8.0 Abs Spencer <0.87 k/uL 0.60 Eosin% % 2.7 Abs [...] INR 1.7 The 10-year ASCVD risk score (Koby JULIO Jr., et al., 2013) is: 17.2% [...] vaccine - ICD9: V04.89, ICD10: Z23 - [employer] COVID-19 VACCINE, AGE 12+ YR (ARIAS TOP) 6. COPD without exacerbation (HCC) - ICD9: 496, ICD10: J44.9 Continue present management. Discussed Dr. Andujar's instructions to use albuterol before activity that causes coughing 7. Bronchiectasis without complication (HCC) - ICD9: 494.0, ICD10: J47.9 As noted above. Fall discussed. Arthritis discussed. Claudine Durán MD documented in this encounter [facility] 06-30-2021 History of Presen t illness Narrative inSight CDM Engagement Provider Action/FYI: Spk with Pt she denies new or worsening COPD symptoms or needs. Pt plans to have her Covid Booster at upcoming Appt with 07/11/21 Contact Made with Patient: Yes Patient identified by name and . Discussed care with patient Shante venegas name is Katarzyna Malcolm RN your Hosiery Mender from Claudine Durán MD office at the [facility]. I am reaching out today because I [...] Bustamante. This is Katarzyna Malcolm RN your Hosiery Mender from the [facility]. I am calling to check in with you concerning the MyChart questionnaire you have been receiving from me. I will call you again tomorrow and am looking forward to speaking with you. (Hosiery Mender enters next day in next patient outreach ) Katarzyna Malcolm RN June 29, 2021 3:31 PM documented in this encounter [facility] 06-09-2021 History of Presen t illness Narrative per production machine tender provider dr garza patient is to continue same dose PATIENT NOTIFIED OF INFORMATION patient had inr completed at [facility] patients inr is 1.6 (patients inr range [...] follow up INR. documented in this encounter [facility] 06-06-2021 Miscellaneous Notes GEREMIAS: 03/14/2021 Last refill: 05/12/2019 QTY: 1 Refills: 2 Patient's request for medication is as follows: Pending Prescriptions Disp Refills ALBUTEROL SULFATE HFA 90 MCG/ACTUATION AEROSOL INHALER 1 Inhaler 2 Sig: Inhale 2 Puffs as instructed every 4 hours as needed. YULIANA: No Please approve the above prescription(s) to electronically send to pharmacy. Sergey Ramirez Ma documented in this encounter [facility] 2021 Instructions Julio Andujar MD - 2021 [...] I am retiring from the staff of [facility] and the practice of Medicine on August [...] Johanna Benites PA-C. documented in this encounter [facility] 2021 History of Presen t illness Narrative [facility] Respiratory [place], 2021: Name: Haydee Bustamante : 1945 INTERVAL [...] months, sooner if needed. Julio Andujar MD, [facility] [place] [facility] [address] [place] [address] P: [phone] F: [phone] [email or web address] documented in this encounter [facility] 05-26-2021 History of Presen t illness Narrative production machine tender provider agrees with information patient had inr completed at [facility] patients inr is 1.6 (patients inr range [...] just slightly low documented in this encounter [facility] 05-20-2021 History of Presen t illness Narrative [...] 2021 2:45 PM documented in this encounter [facility] 03-14-2021 History of Presen t illness Narrative This note was created using [employer]. Subjective Haydee Bustamante is a 75 year [...] positive rheumatoid factor (HCC) 03/07/2015 Dr. Hurley ([facility]) Unspecified hemorrhoids without mention of complication Hemorrhoids [...] (FLONASE) 50 mcg/actuation nasal spray Use 1 [place] in each nostril once daily. potassium chloride [...] 3. Cough R05.9 4. Bronchiectasis without complication ([facility]) J47.9 5. Gastroesophageal reflux disease without esophagitis K21.9 6. Aortic stenosis with bicuspid valve Q23.0 Q23.1 7. 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 rheumatoid factor ([facility]) M05.79 ASSESSMENT/PLAN: 1. Essential hypertension - ICD9: 401.9, ICD10: I10 (primary diagnosis) - good control - Follows with Dr. Ambriz ([facility] cardiology) - Continue current medication(s) - Recommended [...] 714.0, ICD10: M05.79 Stable on meds through [facility]--Dr. Hurley Gets labs through his office. Lipid ordered. I spent a total of at least 30 minutes on the date of the service which included [id number] patient care, completing clinical documentation, obtaining and/or reviewing separately obtained history, performing a medically appropriate examination, counseling and educating the patient/family/caregiver and ordering medications, tests, or procedures. Claudine Durán MD documented in this encounter [facility] documented as of this encounter (statuses as of 05/20/2021) [facility] History of Past illness Narrative* Problem Noted [...] of this encounter (statuses as of 05/22/2021) [facility] Narrative* Problem Noted [...] of this encounter (statuses as of 05/26/2021) [facility] Narrative* Problem Noted [...] of this encounter (statuses as of 06/06/2021) [facility] Narrative* Problem Noted [...] of this encounter (statuses as of 06/09/2021) [facility] Narrative* Problem Noted [...] of this encounter (statuses as of 06/30/2021) [facility] Narrative* Problem Noted [...] of this encounter (statuses as of 07/25/2021) [facility] Narrative* Problem Noted [...] of this encounter (statuses as of 08/01/2021) [facility] Narrative* Problem Noted [...] of this encounter (statuses as of 08/12/2021) [facility] Narrative* Problem Noted [...] of this encounter (statuses as of 08/23/2021) [facility] Narrative* Problem Noted [...] of this encounter (statuses as of 09/06/2021) [facility] Narrative* Problem Noted [...] of this encounter (statuses as of 09/06/2021) [facility] Narrative* Problem Noted [...] of this encounter (statuses as of 09/07/2021) [facility] Narrative* Problem Noted [...] of this encounter (statuses as of 09/20/2021) [facility] Narrative* Problem Noted [...] of this encounter (statuses as of 09/29/2021) [facility] N[facility]ative* Problem Noted [...] of this encounter (statuses as of 10/13/2021) [facility] Narrative* Problem Noted [...] of this encounter (statuses as of 10/13/2021) [facility] N[facility]ative* Problem Noted [...] of this encounter (statuses as of 10/18/2021) [facility] Narrative* Problem Noted [...] of this encounter (statuses as of 10/18/2021) [facility] Narrative* Problem Noted [...] of this encounter (statuses as of 10/19/2021) [facility] N[facility]ative* Problem Noted [...] of this encounter (statuses as of 10/27/2021) [facility] N[facility]* Problem Noted [...] of this encounter (statuses as of 11/01/2021) [facility] N[facility]* Problem Noted [...] of this encounter (statuses as of 11/08/2021) [facility]* Problem Noted [...] of this encounter (statuses as of 11/10/2021) [facility]* Problem Noted [...] of this encounter (statuses as of 11/10/2021) [facility]* Problem Noted [...] of this encounter (statuses as of 11/29/2021) [facility]* Problem Noted [...] of this encounter (statuses as of 12/04/2021) [facility]* Problem Noted [...] of this encounter (statuses as of 12/22/2021) [facility]* Problem Noted [...] of this encounter (statuses as of 12/27/2021) [facility]* Problem Noted [...] of this encounter (statuses as of 01/05/2022) [facility]* Problem Noted [...] of this encounter (statuses as of 01/11/2022) [facility]* Problem Noted [...] of this encounter (statuses as of 01/17/2022) [facility]* Problem Noted [...] of this encounter (statuses as of 01/17/2022) [facility]* Problem Noted [...] of this encounter (statuses as of 02/02/2022) [facility]* Problem Noted [...] of this encounter (statuses as of 02/22/2022) [facility]* Problem Noted [...] of this encounter (statuses as of 02/24/2022) [facility]* Problem Noted [...] of this encounter (statuses as of 03/14/2022) [facility]* Problem Noted [...] of this encounter (statuses as of 03/30/2022) [facility]* Problem Noted [...] of this encounter (statuses as of 04/06/2022) [facility]* Problem Noted [...] of this encounter (statuses as of 04/21/2022) [facility]* Problem Noted [...] of this encounter (statuses as of 05/04/2022) [facility]* Problem Noted [...] of this encounter (statuses as of 05/24/2022) [facility]* Problem Noted [...] of this encounter (statuses as of 06/01/2022) [facility]* Problem Noted [...] of this encounter (statuses as of 06/29/2022) [facility]* Problem Noted [...] of this encounter (statuses as of 07/24/2022) [facility]* Problem Noted [...] of this encounter (statuses as of 07/24/2022) [facility]* Problem Noted [...] of this encounter (statuses as of 08/13/2022) [facility] N[facility]* Problem Noted Date Resolved Date Murmur 03/08/2018 08/05/2018 Anemia 03/08/2018 04/26/2018 DVT, recurrent, lower extremity, acute 5 03/03/2018 Overview: Remote history of DVT S/P IVC filter On Warfarin 5 mg TTSS, 7.5 mg MWF Right sided sciatica 03/20/2011 03/30/2014 Hypertension 04/13/2010 03/07/2015 Rheumatoid arthritis 04/01/2009 03/07/2015 Enthesopathy of hip region 01/04/200907/07 Embolism and thrombosis 11/23/2006 07/08/19 Pain in joint, lower leg 10/18/2006 019 documented as of this encounter (statuses as of 08/15/2022) [facility] Narrative* Problem Noted [...] of this encounter (statuses as of 09/08/2022) [facility]* Problem Noted [...] of this encounter (statuses as of 09/11/2022) [facility]* Problem Noted [...] of this encounter (statuses as of 09/15/2022) [facility]* Problem Noted [...] of this encounter (statuses as of 09/26/2022) [facility]* Problem Noted [...] of this encounter (statuses as of 10/10/2022) [facility]* Problem Noted [...] of this encounter (statuses as of 10/13/2022) [facility]* Problem Noted Date Diagnosed Date Resolved Date Murmur 03/08/2018 08/05/2018 Anemia 03/08/2018 04/26/2018 DVT, recurrent, lower extremity, acute 12/10/2014 03/03/2018 Overview: Remote history of DVT S/P IVC filter On Warfarin 5 mg TTSS, 7.5 mg MWF Right sided sciatica 03/20/2011 015 Hypertension 04/13/2010 03/07/2015 Rheumatoid arthritis 04/01/2009 016 Enthesopathy of hip region 01/04/2009 0 07/07/2021 Embolism and thrombosis 11/23/200606/192 Pain in joint, lower leg 10/18/200601/2019 documented as of this encounter (statuses as of 10/27/2022) [facility] N[facility]* Problem Noted [...] of this encounter (statuses as of 10/27/2022) [facility]* Problem Noted [...] of this encounter (statuses as of 10/31/2022) [facility]* Problem Noted [...] of this encounter (statuses as of 10/31/2022) [facility]* Problem Noted [...] of this encounter (statuses as of 11/02/2022) [facility]* Problem Noted [...] of this encounter (statuses as of 11/10/2022) [facility]* Problem Noted [...] of this encounter (statuses as of 11/23/2022) [facility]* Problem Noted [...] of this encounter (statuses as of 12/07/2022) [facility]* Problem Noted [...] of this encounter (statuses as of 12/07/2022) [facility]* Problem Noted [...] of this encounter (statuses as of 12/15/2022) [facility]* Problem Noted [...] of this encounter (statuses as of 12/20/2022) [facility]* Problem Noted [...] of this encounter (statuses as of 12/24/2022) [facility]* Problem Noted [...] of this encounter (statuses as of 12/24/2022) [facility]* Problem Noted [...] of this encounter (statuses as of 01/04/2023) [facility]* Problem Noted [...] of this encounter (statuses as of 01/05/2023) [facility]* Problem Noted [...] of this encounter (statuses as of 01/10/2023) [facility]* Problem Noted [...] of this encounter (statuses as of 01/18/2023) [facility]* Problem Noted [...] of this encounter (statuses as of 01/24/2023) [facility]* Problem Noted [...] of this encounter (statuses as of 02/03/2023) [facility]* Problem Noted [...] of this encounter (statuses as of 02/08/2023) [facility]* Problem Noted [...] as of this encounter (statuses as of 03/24/2023) [facility] Diagnosis Screening mammogram, encounter for- Primary [facility] Diagnosis Essential hypertension- Primary Unspecified essential hypertension History of COVID-19 Cough Bronchiectasis without complication (HCC) Bronchiectasis without acute exacerbation Gastroesophageal reflux disease without esophagitis Esophageal reflux Aortic stenosis with bicuspid valve 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 rheumatoid factor (HCC) [facility] Diagnosis Embolism and thrombosis (HCC) Embolism and thrombosis of unspecified site [facility] Diagnosis Moderate COPD (chronic obstructive pulmonary disease) (HCC)- Primary Chronic airway obstruction, not elsewhere classified Bronchiectasis without complication (HCC) Bronchiectasis without acute exacerbation Centrilobular emphysema (HCC) Other emphysema [facility] Cough due to bronchospasm Acute bronchospasm [facility] Diagnosis Embolism and thrombosis (HCC) Embolism and thrombosis of unspecified site [facility] Diagnosis Personal history of DVT (deep vein thrombosis)- Primary Personal history of venous thrombosis and embolism [facility] Diagnosis Aortic stenosis with bicuspid valve- Primary Essential hypertension Unspecified essential hypertension [facility] Personal history of DVT (deep vein thrombosis)- Primary Personal history of venous thrombosis and embolism [facility] Diagnosis Encounter for screening mammogram for breast cancer [facility] Diagnosis Gastroesophageal reflux disease without esophagitis- Primary Esophageal reflux Other viral warts Elevated LDL cholesterol level Pure hypercholesterolemia Essential hypertension Unspecified essential hypertension Need for COVID-19 vaccine COPD without exacerbation (HCC) Bronchiectasis without complication (HCC) Bronchiectasis without acute exacerbation [facility] Diagnosis Toe infection- Primary Unspecified local infection of skin and subcutaneous tissue Sinobronchitis Unspecified sinusitis (chronic) [facility] Personal history of DVT (deep vein thrombosis)- Primary Personal history of venous thrombosis and embolism [facility] Diagnosis Abnormal mammogram Abnormal mammogram, unspecified [facility] Diagnosis Ulcer of toe of left foot, limited to breakdown of skin (HCC)- Primary Hammer toe of left foot Onychodystrophy Other specified disease of nail [facility] Diagnosis Embolism and thrombosis (HCC) Embolism and thrombosis of unspecified site [facility] Ulcer of toe of left foot, limited to breakdown of skin (HCC) Hammer toe of left foot documented in this [facility] Clinic[facility]* Diagnosis Ulcer of toe of left foot, limited to breakdown of skin (HCC)- Primary Hammer toe of left foot Hallux rigidus of left foot Hallux rigidus [facility] Diagnosis COPD without exacerbation (HCC) Essential hypertension Unspecified essential hypertension [facility] Diagnosis Essential hypertension- Primary Unspecified essential hypertension Chronic obstructive pulmonary disease, unspecified COPD type (HCC) Encounter for immunization Need for other specified prophylactic vaccination against single bacterial disease Gastroesophageal reflux disease without esophagitis Esophageal reflux Bronchiectasis without complication (HCC) Bronchiectasis without acute exacerbation Aortic stenosis with bicuspid valve [facility] Diagnosis Lung nodules- Primary Other nonspecific abnormal finding of lung field Bronchiectasis without complication (HCC) Bronchiectasis without acute exacerbation Chronic obstructive pulmonary disease, unspecified COPD type (HCC) 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 rheumatoid factor (HCC) [facility] Diagnosis Personal history of DVT (deep vein thrombosis)- Primary Personal history of venous thrombosis and embolism [facility] Diagnosis 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 rheumatoid factor (HCC) Low back pain with right-sided sciatica, unspecified back pain laterality, unspecified chronicity [facility] Diagnosis 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 rheumatoid factor (HCC) Low back pain with right-sided sciatica, unspecified back pain laterality, unspecified chronicity Pseudogout Other disorder of calcium metabolism [facility] Diagnosis Personal history of DVT (deep vein thrombosis)- Primary Personal history of venous thrombosis and embolism [facility] Diagnosis Essential hypertension- Primary Unspecified essential hypertension Chronic anticoagulation Long-term (current) use of 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 Aortic stenosis with bicuspid valve 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 rheumatoid factor (HCC) COPD without exacerbation (HCC) Bronchiectasis without complication (HCC) Bronchiectasis without acute exacerbation Acquired hammertoe of left foot Early dry stage nonexudative age-related macular degeneration of both eyes [facility] Diagnosis Personal history of DVT (deep vein thrombosis)- Primary Personal history of venous thrombosis and embolism [facility] Diagnosis Personal history of DVT (deep vein thrombosis)- Primary Personal history of venous thrombosis and embolism [facility] Diagnosis Personal history of DVT (deep vein thrombosis)- Primary Personal history of venous thrombosis and embolism [facility] Diagnosis Lung nodules- Primary Other [...] [facility] 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- Primary Long-term (current) use of 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 [facility] Diagnosis Essential hypertension- Primary Unspecified essential [...] with bicuspid valve [facility] Diagnosis Chronic anticoagulation Long-term (current) use of 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 [facility] Diagnosis Chronic anticoagulation Long-term (current) use of 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 [facility] Diagnosis Personal history of DVT (deep vein thrombosis)- Primary Personal history of venous thrombosis and embolism documented in this encounter [facility]* Diagnosis Embolism and thrombosis (HCC)- Primary Embolism and thrombosis of unspecified site [facility] Diagnosis DDD (degenerative disc disease), lumbar- Primary Degeneration of lumbar or lumbosacral intervertebral disc Hip pain, acute, left Age-related osteoporosis without current pathological fracture Senile osteoporosis [facility] Diagnosis Embolism and thrombosis (HCC)- Primary Embolism and thrombosis of unspecified site [facility] Diagnosis 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 rheumatoid factor (HCC) Low back pain with right-sided sciatica, unspecified back pain laterality, unspecified chronicity documented [facility] Diagnosis Lung nodules Other nonspecific abnormal finding of lung field [facility] Diagnosis Encounter for screening mammogram for breast cancer documented [facility] Diagnosis Encounter for immunization- Primary Need for other specified prophylactic vaccination against single bacterial disease [facility] Diagnosis Embolism and thrombosis (HCC)- Primary Embolism and thrombosis of unspecified site [facility] Diagnosis Personal history of DVT (deep vein thrombosis)- Primary Personal history of venous thrombosis and embolism [facility] Diagnosis Acute cough- Primary documented in this encounter [facility] for referral (narrative)* Outpatient Procedure (Routine) - Authorized Specialty Diagnoses / Procedures [facility] To [facility] Diagnoses Aortic stenosis with bicuspid valve Essential hypertension Procedures ECHO ECHO TTHRC R-T 2D W/WOM-MODE COMPL SPEC&COLR D SiddharthWilliam [address] [place] [address] [address] Referral ID Status Reason Start Date Expiration Date Visits Requested Visits Authorized [id number] Authorized Auto-Generat ed Referral 08/12/2021 08/12/2022 1 1 * Outpatient Procedure (Routine) - Closed Specialty Diagnoses / Procedures [facility] To Contact [facility] Diagnoses Aortic stenosis with bicuspid valve Essential hypertension Procedures ECG COMPLETE ECG ROUTINE ECG W/LEAST 12 LDS W/I&R Puma Ambrizory Jeff [address] [place] [address] [place] [id number] Referral ID Status Reason Start Date Expiration Date V isits Requested Visits Authorized [id number] Closed Auto-Generate d Referral 08/12/2021 08/12/2022 1 1 [facility] for referral (narrative)* Diagnostic Procedure Only (Routine) - Closed Specialty Diagnoses / Procedures [facility]erred To Contact [facility] Diagnoses Ulcer of toe of left foot, limited to breakdown of skin (HCC) Hammer toe of left foot Procedures XR FOOT GENERAL 3V AP/LAT/OBL LEFT RADEX FOOT COMPLETE MINIMUM 3 VIEWS Yonas Louise [address] [place] [address] Xr Imaging Referral ID Status Reason Start Date Expiration Date V isits Requested Visits Authorized [id number] Closed Auto-Generate d Referral 10/18/2021 11/17/2022 1 1 [facility] for referral (narrative)* Diagnostic Procedure Only (Routine) - Closed Specialty Diagnoses / Procedures Referred By Divya reis Referred To Contact XR IMAGING Diagnoses Ulcer of toe of left foot, limited to breakdown of skin (HCC) Hammer toe of left foot Procedures XR FOOT GENERAL 3V AP/LAT/OBL LEFT RADEX FOOT COMPLETE MINIMUM 3 VIEWS Yonas Louise [address] [place] [address] Xr Imaging Referral ID Status Reason Start Date Expiration Date V isits Requested Visits Authorized [id number] Closed Auto-Generate d Referral 10/18/2021 11/17/2022 1 1 T [facility] for referral (narrative)* Outpatient Procedure (Routine) - Authorized Specialty Diagnoses / Procedures Referred By Divya reis [facility] Diagnoses Aortic stenosis with bicuspid valve Procedures ECHO ECHO TTHRC R-T 2D W/WOM-MODE COMPL SPEC&COLR D Rachelle Lai INTERFACE ANALYST.PHARMACEUTICAL PHYSICIAN [address] [address] [facility] [address] [place] [address] Referral ID Status Reason Start Date Expiration Date Visits Requested Visits Authorized [id number] Authorized Auto-Generat ed Referral 08/29/2022 08/29/2023 1 1 T [facility] for referral (narrative)* Diagnostic Procedure Only (Routine) - Authorized Specialty Diagnoses / Procedures Referred By Divya reis Referred To Contact [facility] Diagnoses Encounter for screening mammogram for breast cancer Procedures SABINO SCREENING W ALIZE SCREENING DIGITAL BREAST TOMOSYNTHESIS BI SCREENING MAMMOGRAPHY BI 2-VIEW BREAST INC CAD Jimbo Carias, INTERFACE ANALYST.CLERICAL WAREHOUSEMAN [address] [place] [address] [facility] [address] [place] [address] Referral ID Status Reason Start Date Expiration Date Visits Requested Visits Authorized [id number] Authorized Auto-Generat ed Referral 10/27/2022 11/26/2023 1 1 * Diagnostic Procedure Only (Routine) - Pending Review Specialty Diagnoses / Procedures Referred By Divya t Referred To Contact [facility] Diagnoses Encounter for screening mammogram for breast cancer Procedures SABINO SCREENING SCREENING MAMMOGRAPHY BI 2-VIEW BREAST INC [employer] Jimbo Carias APRN.CLERICAL WAREHOUSEMAN [address] [place] [address] [facility] [address] [place] [address] Referral ID Status Reason Start Date Expiration Date Visits Requested Visits Authorized [id number] Pending Review Auto-Generat ed Referral 10/27/2022 11/26/2023 1 1 [facility] for referral (narrative)* Diagnostic Procedure Only (Routine) - Closed Specialty Diagnoses / Procedures Referred By Divya t Referred To Contact [facility] Diagnoses Encounter for screening mammogram for breast cancer Procedures SABINO SCREENING W ALIZE SCREENING DIGITAL BREAST TOMOSYNTHESIS BI SCREENING MAMMOGRAPHY BI 2-VIEW BREAST INC [facility] CariasJimbo tavares APRN.CLERICAL WAREHOUSEMAN [address] [place] [address] [facility] [address] [place] [address] Referral ID Status Reason Start Date Expiration Date V isits Requested Visits Authorized [id number] Closed Auto-Generate d Referral 10/27/2022 11/26/2023 1 1 [facility] for visit Narrative* Diagnostic Procedure Only (Routine) - Closed Specialty Diagnoses / Procedures Referred By Contac t Referred To Contact XR IMAGING Diagnoses Ulcer of toe of left foot, limited to breakdown of skin (HCC) Hammer toe of left foot Procedures XR FOOT GENERAL 3V AP/LAT/OBL LEFT RADEX FOOT COMPLETE MINIMUM [address] [place] [address] Xr Imaging Referral ID Status Reason Start Date Expiration Date V isits Requested Visits Authorized [id number] Closed Auto-Generate d Referral 10/18/2021 11/17/2022 1 1 [facility] Diagnostic Procedure Only (Routine) - Closed Specialty Diagnoses / Procedures Referred By Contac t Referred To Contact [facility] Diagnoses Encounter for screening mammogram for breast cancer Procedures SABINO SCREENING W ALIZE SCREENING DIGITAL BREAST TOMOSYNTHESIS BI SCREENING MAMMOGRAPHY BI 2-VIEW BREAST INC CAD Jimbo Carias, INTERFACE ANALYST.CLERICAL WAREHOUSEMAN [address] [place] [address] [facility] [address] [place] [address] Referral ID Status Reason Start Date Expiration Date V isits Requested Visits Authorized [id number] Closed Auto-Generate d Referral 10/27/2022 11/26/2023 1 1 [facility] Summary Purpose Family History No Family History Records FoundNo Family History Records FoundNo Family History Records FoundNo Family History Records FoundNo Family History Records Found Advance Directives No Advanced Directives Records FoundDocuments on File Type Date Recorded Patient Sole Sewer Hand Expl anation Advance Directive(s) 02/25/2018 1:19 PM Latest Code Status on File Code Status Date Activated Date Inactivated Comments Full Code 03/02/2018 6:22 PM 03/03/2018 4:33 PM Full Code Order Discussed With: Patient Documents on File Type Date Recorded Patient Sole Sewer Hand Expl anation Advance Directive(s) 03/24/2019 12:16 PM Advance Directive(s) 03/02/2018 11:28 AM Advance Directive(s) 02/25/2018 1:11 PM Advance Directive(s) 02/25/2018 1:19 PM Advance Directive(s) 01/25/2018 9:15 AM Advance Directive(s) 07/30/2017 2:22 PM Documents on File Type Date Recorded Patient Sole Sewer Hand Expl anation Advance Directive(s) 03/24/2019 12:16 PM Advance Directive(s) 03/02/2018 11:28 AM Advance Directive(s) 02/25/2018 1:11 PM Advance Directive(s) 02/25/2018 1:19 PM Advance Directive(s) 01/25/2018 9:15 AM Advance Directive(s) 07/30/2017 2:22 PM Latest Code Status on File Code Status Date Activated Date Inactivated Comments Full Code 03/02/2018 6:22 PM 03/03/2018 4:33 PM Documents on File Type Date Recorded Patient Sole Sewer Hand Expl anation Advance Directive(s) 02/25/2018 1:19 PM [...] Date Activated Date Inactivated Comments Full Code 03/22/2023 3:19 PM Question Answer Comments Full Code Order Discussed With: Patient Surrogate Decision Maker Surrogate Decision Maker Name: Milena mckeon and Padmini Chang (Friends) Code Status History Code Status Date Activated Date Inactivated Comments Full Code 03/02/2018 6:22 PM 03/03/2018 4:33 PM Question Answer Comments Full Code Order Discussed With: Patient Reason for Referral Specialty Diagnoses / Procedures Referred By Contac t Referred To Contact CT IMAGING Diagnoses Lung nodules Procedures CT CHEST WO IVCON DIAGNOSTIC COMPUTED TOMOGRAPHY THORAX W/O Florence Duncan MD [address] [place] [address] Ct Imaging Referral ID Status Reason Start Date Expiration Date Visits Requested Visits Authorized [id number] Authorized Auto-Generat ed Referral 2 12/29/2022 1 1 Specialty Diagnoses / Procedures Referred By Contac t Referred To Contact CT IMAGING Diagnoses Lung nodules Bronchiectasis without complication (HCC) Procedures CT CHEST WO IVCON DIAGNOSTIC COMPUTED TOMOGRAPHY THORAX W/O Florence Duncan MD [address] [place] [address] Ct Imaging Referral ID Status Reason Start Date Expiration Date Visits Requested Visits Authorized [id number] Authorized Auto-Generat ed Referral 01/23/2023 08/23/2023 1 1 Specialty Diagnoses / Procedures Referred By Divya t Referred To Contact CT IMAGING Diagnoses Lung nodules Procedures CT CHEST WO IVCON DIAGNOSTIC COMPUTED TOMOGRAPHY THORAX W/O CNTRST Florence Terry MD [address] [place] [address] [place] [id number] Referral ID Status Reason Start Date Expiration Date V isits Requested Visits Authorized [id number] Closed Auto-Generate d Referral 11/29/2021 12/29/2022 1 [...] DATE CREATED AUTHOR AUTHOR'S ORGANIZ ATION 03/10/2018 [facility] DATE CREATED AUTHOR AUTHOR'S ORGANIZ ATION 05/29/2020 [facility] DATE CREATED AUTHOR AUTHOR'S ORGANIZ ATION 03/18/2023 [facility] DATE CREATED AUTHOR AUTHOR'S ORGANIZ ATION 03/26/2023 [facility] Source Comments (unrecognize d section and content) In the event this informatio n is protected by the Federal Confidentiality of Alcohol and Drug Abuse Patient Records regulations: The Federal rules restrict any use of the information to criminally investigate or prosecute any alcohol or drug abuse patient.[facility] the event this information is protected by the Federal Confidentiality of Alcohol and Drug Abuse Patient Records regulations: The Federal rules restrict any use of the information to criminally investigate or prosecute any alcohol or drug abuse patient.[facility] the event this information is protected by the Federal Confidentiality of Alcohol and Drug Abuse Patient Records regulations: The Federal rules restrict any use of the information to criminally investigate or prosecute any alcohol or drug abuse patient.[facility] the event this information is protected by the Federal Confidentiality of Alcohol and Drug Abuse Patient Records regulations: The Federal rules restrict any use of the information to criminally investigate or prosecute any alcohol or drug abuse patient.[facility] the event this information is protected by the Federal Confidentiality of Alcohol and Drug Abuse Patient Records regulations: The Federal rules restrict any use of the information to criminally investigate or prosecute any alcohol or drug abuse patient.[facility] the event this information is protected by the Federal Confidentiality of Alcohol and Drug Abuse Patient Records regulations: The Federal rules restrict any use of the information to criminally investigate or prosecute any alcohol or drug abuse patient.[facility] the event this information is protected by the Federal Confidentiality of Alcohol and Drug Abuse Patient Records regulations: The Federal rules restrict any use of the information to criminally investigate or prosecute any alcohol or drug abuse patient.[facility] the event this information is protected by the Federal Confidentiality of Alcohol and Drug Abuse Patient Records regulations: The Federal rules restrict any use of the information to criminally investigate or prosecute any alcohol or drug abuse patient.[facility] the event this information is protected by the Federal Confidentiality of Alcohol and Drug Abuse Patient Records regulations: The Federal rules restrict any use of the information to criminally investigate or prosecute any alcohol or drug abuse patient.[facility] the event this information is protected by the Federal Confidentiality of Alcohol and Drug Abuse Patient Records regulations: The Federal rules restrict any use of the information to criminally investigate or prosecute any alcohol or drug abuse patient.[facility] the event this information is protected by the Federal Confidentiality of Alcohol and Drug Abuse Patient Records regulations: The Federal rules restrict any use of the information to criminally investigate or prosecute any alcohol or drug abuse patient.[facility] the event this information is protected by the Federal Confidentiality of Alcohol and Drug Abuse Patient Records regulations: The Federal rules restrict any use of the information to criminally investigate or prosecute any alcohol or drug abuse patient.[facility] the event this information is protected by the Federal Confidentiality of Alcohol and Drug Abuse Patient Records regulations: The Federal rules restrict any use of the information to criminally investigate or prosecute any alcohol or drug abuse patient.[facility] the event this information is protected by the Federal Confidentiality of Alcohol and Drug Abuse Patient Records regulations: The Federal rules restrict any use of the information to criminally investigate or prosecute any alcohol or drug abuse patient.[facility] the event this information is protected by the Federal Confidentiality of Alcohol and Drug Abuse Patient Records regulations: The Federal rules restrict any use of the information to criminally investigate or prosecute any alcohol or drug abuse patient.[facility] the event this information is protected by the Federal Confidentiality of Alcohol and Drug Abuse Patient Records regulations: The Federal rules restrict any use of the information to criminally investigate or prosecute any alcohol or drug abuse patient.[facility] the event this information is protected by the Federal Confidentiality of Alcohol and Drug Abuse Patient Records regulations: The Federal rules restrict any use of the information to criminally investigate or prosecute any alcohol or drug abuse patient.[facility] the event this information is protected by the Federal Confidentiality of Alcohol and Drug Abuse Patient Records regulations: The Federal rules restrict any use of the information to criminally investigate or prosecute any alcohol or drug abuse patient.[facility] the event this information is protected by the Federal Confidentiality of Alcohol and Drug Abuse Patient Records regulations: The Federal rules restrict any use of the information to criminally investigate or prosecute any alcohol or drug abuse patient.[facility] the event this information is protected by the Federal Confidentiality of Alcohol and Drug Abuse Patient Records regulations: The Federal rules restrict any use of the information to criminally investigate or prosecute any alcohol or drug abuse patient.[facility] the event this information is protected by the Federal Confidentiality of Alcohol and Drug Abuse Patient Records regulations: The Federal rules restrict any use of the information to criminally investigate or prosecute any alcohol or drug abuse patient.[facility] the event this information is protected by the Federal Confidentiality of Alcohol and Drug Abuse Patient Records regulations: The Federal rules restrict any use of the information to criminally investigate or prosecute any alcohol or drug abuse patient.[facility] the event this information is protected by the Federal Confidentiality of Alcohol and Drug Abuse Patient Records regulations: The Federal rules restrict any use of the information to criminally investigate or prosecute any alcohol or drug abuse patient.[facility] the event this information is protected by the Federal Confidentiality of Alcohol and Drug Abuse Patient Records regulations: The Federal rules restrict any use of the information to criminally investigate or prosecute any alcohol or drug abuse patient.[facility] the event this information is protected by the Federal Confidentiality of Alcohol and Drug Abuse Patient Records regulations: The Federal rules restrict any use of the information to criminally investigate or prosecute any alcohol or drug abuse patient.[facility] the event this information is protected by the Federal Confidentiality of Alcohol and Drug Abuse Patient Records regulations: The Federal rules restrict any use of the information to criminally investigate or prosecute any alcohol or drug abuse patient.[facility] the event this information is protected by the Federal Confidentiality of Alcohol and Drug Abuse Patient Records regulations: The Federal rules restrict any use of the information to criminally investigate or prosecute any alcohol or drug abuse patient.[facility] the event this information is protected by the Federal Confidentiality of Alcohol and Drug Abuse Patient Records regulations: The Federal rules restrict any use of the information to criminally investigate or prosecute any alcohol or drug abuse patient.[facility] the event this information is protected by the Federal Confidentiality of Alcohol and Drug Abuse Patient Records regulations: The Federal rules restrict any use of the information to criminally investigate or prosecute any alcohol or drug abuse patient.[facility] the event this information is protected by the Federal Confidentiality of Alcohol and Drug Abuse Patient Records regulations: The Federal rules restrict any use of the information to criminally investigate or prosecute any alcohol or drug abuse patient.[facility] HospitalIn the event this information is protected by the Federal Confidentiality of Alcohol and Drug Abuse Patient Records regulations: The Federal rules restrict any use of the information to criminally investigate or prosecute any alcohol or drug abuse patient.[facility] HospitalIn the event this information is protected by the Federal Confidentiality of Alcohol and Drug Abuse Patient Records regulations: The Federal rules restrict any use of the information to criminally investigate or prosecute any alcohol or drug abuse patient.[facility] HospitalIn the event this information is protected by the Federal Confidentiality of Alcohol and Drug Abuse Patient Records regulations: The Federal rules restrict any use of the information to criminally investigate or prosecute any alcohol or drug abuse patient.[facility] HospitalIn the event this information is protected by the Federal Confidentiality of Alcohol and Drug Abuse Patient Records regulations: The Federal rules restrict any use of the information to criminally investigate or prosecute any alcohol or drug abuse patient.[facility] HospitalIn the event this information is protected by the Federal Confidentiality of Alcohol and Drug Abuse Patient Records regulations: The Federal rules restrict any use of the information to criminally investigate or prosecute any alcohol or drug abuse patient.[facility] HospitalIn the event this information is protected by the Federal Confidentiality of Alcohol and Drug Abuse Patient Records regulations: The Federal rules restrict any use of the information to criminally investigate or prosecute any alcohol or drug abuse patient.[facility] HospitalIn the event this information is protected by the Federal Confidentiality of Alcohol and Drug Abuse Patient Records regulations: The Federal rules restrict any use of the information to criminally investigate or prosecute any alcohol or drug abuse patient.[facility] HospitalIn the event this information is protected by the Federal Confidentiality of Alcohol and Drug Abuse Patient Records regulations: The Federal rules restrict any use of the information to criminally investigate or prosecute any alcohol or drug abuse patient.[facility] HospitalIn the event this information is protected by the Federal Confidentiality of Alcohol and Drug Abuse Patient Records regulations: The Federal rules restrict any use of the information to criminally investigate or prosecute any alcohol or drug abuse patient.[facility] HospitalIn the event this information is protected by the Federal Confidentiality of Alcohol and Drug Abuse Patient Records regulations: The Federal rules restrict any use of the information to criminally investigate or prosecute any alcohol or drug abuse patient.[facility] HospitalIn the event this information is protected by the Federal Confidentiality of Alcohol and Drug Abuse Patient Records regulations: The Federal rules restrict any use of the information to criminally investigate or prosecute any alcohol or drug abuse patient.[facility] HospitalIn the event this information is protected by the Federal Confidentiality of Alcohol and Drug Abuse Patient Records regulations: The Federal rules restrict any use of the information to criminally investigate or prosecute any alcohol or drug abuse patient.[facility] HospitalIn the event this information is protected by the Federal Confidentiality of Alcohol and Drug Abuse Patient Records regulations: The Federal rules restrict any use of the information to criminally investigate or prosecute any alcohol or drug abuse patient.[facility] HospitalIn the event this information is protected by the Federal Confidentiality of Alcohol and Drug Abuse Patient Records regulations: The Federal rules restrict any use of the information to criminally investigate or prosecute any alcohol or drug abuse patient.[facility] HospitalIn the event this information is protected by the Federal Confidentiality of Alcohol and Drug Abuse Patient Records regulations: The Federal rules restrict any use of the information to criminally investigate or prosecute any alcohol or drug abuse patient.[facility] HospitalIn the event this information is protected by the Federal Confidentiality of Alcohol and Drug Abuse Patient Records regulations: The Federal rules restrict any use of the information to criminally investigate or prosecute any alcohol or drug abuse patient.[facility] the event this information is protected by the Federal Confidentiality of Alcohol and Drug Abuse Patient Records regulations: The Federal rules restrict any use of the information to criminally investigate or prosecute any alcohol or drug abuse patient.[facility] HospitalIn the event this information is protected by the Federal Confidentiality of Alcohol and Drug Abuse Patient Records regulations: The Federal rules restrict any use of the information to criminally investigate or prosecute any alcohol or drug abuse patient.[facility] HospitalIn the event this information is protected by the Federal Confidentiality of Alcohol and Drug Abuse Patient Records regulations: The Federal rules restrict any use of the information to criminally investigate or prosecute any alcohol or drug abuse patient.[facility] HospitalIn the event this information is protected by the Federal Confidentiality of Alcohol and Drug Abuse Patient Records regulations: The Federal rules restrict any use of the information to criminally investigate or prosecute any alcohol or drug abuse patient.[facility] HospitalIn the event this information is protected by the Federal Confidentiality of Alcohol and Drug Abuse Patient Records regulations: The Federal rules restrict any use of the information to criminally investigate or prosecute any alcohol or drug abuse patient.[facility] HospitalIn the event this information is protected by the Federal Confidentiality of Alcohol and Drug Abuse Patient Records regulations: The Federal rules restrict any use of the information to criminally investigate or prosecute any alcohol or drug abuse patient.[facility] HospitalIn the event this information is protected by the Federal Confidentiality of Alcohol and Drug Abuse Patient Records regulations: The Federal rules restrict any use of the information to criminally investigate or prosecute any alcohol or drug abuse patient.[facility] HospitalIn the event this information is protected by the Federal Confidentiality of Alcohol and Drug Abuse Patient Records regulations: The Federal rules restrict any use of the information to criminally investigate or prosecute any alcohol or drug abuse patient.[facility] HospitalIn the event this information is protected by the Federal Confidentiality of Alcohol and Drug Abuse Patient Records regulations: The Federal rules restrict any use of the information to criminally investigate or prosecute any alcohol or drug abuse patient.[facility] HospitalIn the event this information is protected by the Federal Confidentiality of Alcohol and Drug Abuse Patient Records regulations: The Federal rules restrict any use of the information to criminally investigate or prosecute any alcohol or drug abuse patient.[facility] HospitalIn the event this information is protected by the Federal Confidentiality of Alcohol and Drug Abuse Patient Records regulations: The Federal rules restrict any use of the information to criminally investigate or prosecute any alcohol or drug abuse patient.[facility] HospitalIn the event this information is protected by the Federal Confidentiality of Alcohol and Drug Abuse Patient Records regulations: The Federal rules restrict any use of the information to criminally investigate or prosecute any alcohol or drug abuse patient.[facility] HospitalIn the event this information is protected by the Federal Confidentiality of Alcohol and Drug Abuse Patient Records regulations: The Federal rules restrict any use of the information to criminally investigate or prosecute any alcohol or drug abuse patient.[facility] HospitalIn the event this information is protected by the Federal Confidentiality of Alcohol and Drug Abuse Patient Records regulations: The Federal rules restrict any use of the information to criminally investigate or prosecute any alcohol or drug abuse patient.[facility] HospitalIn the event this information is protected by the Federal Confidentiality of Alcohol and Drug Abuse Patient Records regulations: The Federal rules restrict any use of the information to criminally investigate or prosecute any alcohol or drug abuse patient.[facility] HospitalIn the event this information is protected by the Federal Confidentiality of Alcohol and Drug Abuse Patient Records regulations: The Federal rules restrict any use of the information to criminally investigate or prosecute any alcohol or drug abuse patient.[facility] HospitalIn the event this information is protected by the Federal Confidentiality of Alcohol and Drug Abuse Patient Records regulations: The Federal rules restrict any use of the information to criminally investigate or prosecute any alcohol or drug abuse patient.[facility] HospitalIn the event this information is protected by the Federal Confidentiality of Alcohol and Drug Abuse Patient Records regulations: The Federal rules restrict any use of the information to criminally investigate or prosecute any alcohol or drug abuse patient.[facility] HospitalIn the event this information is protected by the Federal Confidentiality of Alcohol and Drug Abuse Patient Records regulations: The Federal rules restrict any use of the information to criminally investigate or prosecute any alcohol or drug abuse patient.[facility] HospitalIn the event this information is protected by the Federal Confidentiality of Alcohol and Drug Abuse Patient Records regulations: The Federal rules restrict any use of the information to criminally investigate or prosecute any alcohol or drug abuse patient.[facility] HospitalIn the event this information is protected by the Federal Confidentiality of Alcohol and Drug Abuse Patient Records regulations: The Federal rules restrict any use of the information to criminally investigate or prosecute any alcohol or drug abuse patient.[facility] HospitalIn the event this information is protected by the Federal Confidentiality of Alcohol and Drug Abuse Patient Records regulations: The Federal rules restrict any use of the information to criminally investigate or prosecute any alcohol or drug abuse patient.[facility] HospitalIn the event this information is protected by the Federal Confidentiality of Alcohol and Drug Abuse Patient Records regulations: The Federal rules restrict any use of the information to criminally investigate or prosecute any alcohol or drug abuse patient.[facility] HospitalIn the event this information is protected by the Federal Confidentiality of Alcohol and Drug Abuse Patient Records regulations: The Federal rules restrict any use of the information to criminally investigate or prosecute any alcohol or drug abuse patient.[facility] HospitalIn the event this information is protected by the Federal Confidentiality of Alcohol and Drug Abuse Patient Records regulations: The Federal rules restrict any use of the information to criminally investigate or prosecute any alcohol or drug abuse patient.[facility] HospitalIn the event this information is protected by the Federal Confidentiality of Alcohol and Drug Abuse Patient Records regulations: The Federal rules restrict any use of the information to criminally investigate or prosecute any alcohol or drug abuse patient.[facility] HospitalIn the event this information is protected by the Federal Confidentiality of Alcohol and Drug Abuse Patient Records regulations: The Federal rules restrict any use of the information to criminally investigate or prosecute any alcohol or drug abuse patient.[facility] HospitalIn the event this information is protected by the Federal Confidentiality of Alcohol and Drug Abuse Patient Records regulations: The Federal rules restrict any use of the information to criminally investigate or prosecute any alcohol or drug abuse patient.[facility] HospitalIn the event this information is protected by the Federal Confidentiality of Alcohol and Drug Abuse Patient Records regulations: The Federal rules restrict any use of the information to criminally investigate or prosecute any alcohol or drug abuse patient.[facility] HospitalIn the event this information is protected by the Federal Confidentiality of Alcohol and Drug Abuse Patient Records regulations: The Federal rules restrict any use of the information to criminally investigate or prosecute any alcohol or drug abuse patient.[facility] HospitalIn the event this information is protected by the Federal Confidentiality of Alcohol and Drug Abuse Patient Records regulations: The Federal rules restrict any use of the information to criminally investigate or prosecute any alcohol or drug abuse patient.[facility] Reason for Visit (unrecogniz ed section and [...] BREAST UNI REAL TIME WITH IMAGE LIMITED Wolverine, Brenda, INTERFACE ANALYST.PHARMACEUTICAL PHYSICIAN [address] [place] [address] [facility] [address] [place] [address] Referral ID Status Reason Start Date Expiration Date V isits Requested Visits Authorized [id number] Closed Auto-Generate d Referral 09/05/2021 10/05/2022 1 1 Reason Comments Radiology Mammogram Specialty Diagnoses / Procedures Referred By Contac t Referred To Contact [facility] Diagnoses Abnormal mammogram Procedures SABINO DIAGNOSTIC LT DIAGNOSTIC MAMMOGRAPHY COMPUTER-AIDED DETCJ UNI Vonnie, Brenda, INTERFACE ANALYST.PHARMACEUTICAL PHYSICIAN [address] [place] [address] [facility] [address] [place] [address] Referral ID Status Reason Start Date Expiration Date V isits Requested Visits Authorized [id number] Closed Auto-Generate d Referral 09/05/2021 10/05/2022 1 [...] acute, left Procedures CONSULT TO ORTHOPAEDICS OFFICE/OUTPATIENT NEW HIGH MDM 60-74 MINUTES Jeana Sommers APRN.PHARMACEUTICAL PHYSICIAN [address] [id number] Referral ID Status Reason Start Date Expiration Date Visits Requested Visits Authorized [id number] Pending Review PCP Requested Referral 10/11/2022 10/11/2023 1 1 Reason Onset Date Comments Refill Request 12/20/[address] Specialty Diagnoses / Procedures Referred By Contac t Referred To Contact CT IMAGING Diagnoses Lung nodules Procedures CT CHEST WO IVCON DIAGNOSTIC COMPUTED TOMOGRAPHY THORAX W/O Florence Duncan MD [address] [facility] [place] [address] Ct Imaging [place] [address] Referral ID Status Reason Start Date Expiration Date V isits Requested Visits Authorized [id number] Closed Auto-Generate d Referral 11/29/2021 12/29/2022 1 1 Reason Comments Imm/Inj COVID vaccine and di scuss RSV Reason Comments Refill Request Reason Comments Cough Cough and congestion x 4 weeks Reason Onset Date Comments Appointment 03/23/2023 Care Teams (unrecognized sec tion and content) Store Product Demonstrator Relationship Specialty Start Date End Date Claudine Durán MD [address] [place] [address] PCP - General Internal Medicine 03/02/16 Will Hurley [address] [facility] [place] [address] Referring Rheumatology 04/09/18 Gold Colón, passenger car conductorAircraft Seat Upholsterer Internal Medicine 07/22/20 Store Product Demonstrator Relationship Specialty Start Date End Date Claudine Durán MD [address] [place] [address] PCP - General Internal Medicine 03/02/16 Will Hurley[address] [facility] [place] [address] Referring Rheumatology 04/09/18 Gold Colón passenger car conductorAircraft Seat Upholsterer Internal Medicine 07/22/20 Store Product Demonstrator Relationship Specialty Start Date End Date Claudine Durán MD [address] [place] [address] PCP - General Internal Medicine 03/02/16 Will Hurley [address] [place] [facility] [place] [address] Referring Rheumatology 04/09/18 Gold Colón passenger car conductorAircraft Seat Upholsterer Internal Medicine 07/22/20 Store Product Demonstrator Relationship Specialty Start Date End Date Claudine Durán MD [address] [place] [address] PCP - General Internal Medicine 03/02/16 Will Hurley [address] [place] [facility] [place] [place] [address] Referring Rheumatology 04/09/18 Gold Colón passenger car conductorAircraft Seat Upholsterer Internal Medicine 07/22/20 Store Product Demonstrator Relationship Specialty Start Date End Date Claudine Durán MD [address] [facility], [place] [address] PCP - General Internal Medicine 03/02/16 Will Hurley [address] [place] [facility] [place] [address] Referring Rheumatology 04/09/18 Gold Colón, passenger car conductorAircraft Seat Upholsterer Internal Medicine 07/22/20 Store Product Demonstrator Relationship Specialty Start Date End Date Claudine Durán MD [address] [facility], [place] [address] PCP - General Internal Medicine 03/02/16 Will Hurley [address] [place] [facility] [place] [address] Referring Rheumatology 04/09/18 Gold Colón, passenger car conductorAircraft Seat Upholsterer Internal Medicine 07/22/20 Store Product Demonstrator Relationship Specialty Start Date End Date Claudine Durán MD [address] [place] [address] PCP - General Internal Medicine 03/02/16 Will Hurley [address] [place] [facility] [place] [address] Referring Rheumatology 04/09/18 Gold Colón, passenger car conductorAircraft Seat Upholsterer Internal Medicine 07/22/20 Store Product Demonstrator Relationship Specialty Start Date End Date Claudine Durán MD [address] [place] [address] PCP - General Internal Medicine 03/02/16 Will Hurley [address] [place] [place] [address] Referring Rheumatology 04/09/18 Gold Colón, passenger car conductorAircraft Seat Upholsterer Internal Medicine 07/22/20 Store Product Demonstrator Relationship Specialty Start Date End Date Claudine Durán MD [address] [place], [place] [address] PCP - General Internal Medicine 03/02/16 Will Hurley [address] [place] [facility] [place] [address] Referring Rheumatology 04/09/18 Gold Colón, passenger car conductorAircraft Seat Upholsterer Internal Medicine 07/22/20 Store Product Demonstrator Relationship Specialty Start Date End Date Claudine Durán MD [address] [place], [place] [address] PCP - General Internal Medicine 03/02/16 Will granger [address] [place] [address] Referring Rheumatology 04/09/18 Gold Colón, passenger car conductorAircraft Seat Upholsterer Internal Medicine 07/22/20 Store Product Demonstrator Relationship Specialty Start Date End Date Claudine Durán MD [address] [place], [place] [address] PCP - General Internal Medicine 03/02/16 Will granger [address] [place] [facility] [place] [address] Referring Rheumatology 04/09/18 Gold Colón, passenger car conductorAircraft Seat Upholsterer Internal [facility] 07/22/20 Store Product Demonstrator Relationship Specialty Start Date End Date Claudine Durán MD [address] [place], [place] [address] PCP - General Internal Medicine 03/02/16 Will Hurley [address] [place] [facility] [place] [address] Referring Rheumatology 04/09/18 Gold Colón, passenger car conductorAircraft Seat Upholsterer Internal [facility] 07/22/20 Store Product Demonstrator Relationship Specialty Start Date End Date Claudine Durán MD [address] [place], [place] [address] PCP - General Internal Medicine 03/02/16 Will Hurley [address] [place] [facility] [place] [address] Referring Rheumatology 04/09/18 Gold Colón, passenger car conductorAircraft Seat Upholsterer [facility] 07/22/20 Store Product Demonstrator Relationship Specialty Start Date End Date Claudine Durán MD [address] [place] [address] PCP - General Internal Medicine 03/02/16 [place] [address] [place] [address] Referring Rheumatology 04/09/18 Gold Colón, passenger car conductorAircraft Seat Upholsterer Internal [facility] 07/22/20 Store Product Demonstrator Relationship Specialty Start Date End Date Claudine Durán MD [address] [place] [address] PCP - General Internal Medicine 03/02/16 Will [address] [place] [address] Referring Rheumatology 04/09/18 Gold Colón, passenger car conductorAircraft Seat Upholsterer [facility] 07/22/20 Store Product Demonstrator Relationship Specialty Start Date End Date Claudine Durán MD [address] [place] [address] PCP - General Internal Medicine 03/02/16 Will Hurley [address] [place] [address] Referring Rheumatology 04/09/18 Gold Colón, passenger car conductorAircraft Seat Upholsterer [facility] 07/22/20 Store Product Demonstrator Relationship Specialty Start Date End Date Claudine Durán MD [address] [place] [address] PCP - General Internal Medicine 03/02/16 Will Hurley [facility] [place] [facility] [place] [place] [address] Referring Rheumatology 04/09/18 Gold Colón, passenger car conductorAircraft Seat Upholsterer [facility] 07/22/20 Store Product Demonstrator Relationship Specialty Start Date End Date Claudine Durán MD [address] [place] [address] PCP - General Internal Medicine 03/02/16 Will Hurley [facility] [place] [facility] [place] [address] Referring Rheumatology 04/09/18 Lulú Ramos, RN [address] [place], [place] [id number] [employer] [facility] 07/22/20 Store Product Demonstrator Relationship Specialty Start Date End Date Claudine Durán MD [address] [place] [address] PCP - General Internal Medicine 03/02/16 Will Hurley [facility] [place] [facility] [place] [address] Referring Rheumatology 04/09/18 Gold Colón, passenger car conductorAircraft Seat [facility]sterer [facility] 07/22/20 12/20/21 Lulú Ramos, RN [address] [place], [place] [id number] [employer] [facility] 07/22/20 Store Product Demonstrator Relationship Specialty Start Date End Date Claudine Durán MD [address] [place] [address] PCP - General Internal Medicine 03/02/16 Will [address] [place] [address] Referring Rheumatology 04/09/18 Lulú Ramos, RN [address] [place] [address] [employer] [facility] 07/22/20 Store Product Demonstrator Relationship Specialty Start Date End Date Claudine Durán MD [address] [place] [address] PCP - General Internal Medicine 03/02/16 Will Hurley [facility] [place] [address] Referring Rheumatology 04/09/18 Lulú Ramos, PAULA [address] [place] [address] [employer] [facility] 07/22/20 Store Product Demonstrator Relationship Specialty Start Date End Date Claudine Durán MD [address] [place] [address] PCP - General Internal Medicine 03/02/16 Will Hurley [facility] [address] [facility] [place] [address] Referring Rheumatology 04/09/18 Lulú Ramos, PAULA [address] [place] [address] [employer] [facility] 07/22/20 Store Product Demonstrator Relationship Specialty Start Date End Date Claudine Durán MD [address] [place] [address] PCP - General Internal Medicine 03/02/16 Will Hurley [facility] [address] [facility] [place] [address] Referring Rheumatology 04/09/18 Lulú Ramos, PAULA [address] [place] [address] [employer] [facility] 07/22/20 Store Product Demonstrator Relationship Specialty Start Date End Date Claudine Durán MD [address] [place] [address] PCP - General Internal Medicine 03/02/16 Will Hurley [facility] [place] [facility] [place] [address] Referring Rheumatology 04/09/18 Lulú Ramos, PAULA [address] [place] [address] [employer] [facility] 12/20/21 Store Product Demonstrator Relationship Specialty Start Date End Date Claudine Durán MD [address] [place] [address] PCP - General Internal Medicine 03/02/16 Will [facility] [facility] [place] [facility] [address] Referring Rheumatology 04/09/18 Lulú Ramos RN [address] [place] [address] [employer] Family [facility] 12/20/21 Store Product Demonstrator Relationship Specialty Start Date End Date Claudine Durán MD [address] [place] [address] PCP - General Internal Medicine 03/02/16 Will Hurley [facility] [place] [address] Referring Rheumatology 04/09/18 Lulú Ramos, PAULA [address] [facility], [place] [id number] [employer] [facility] 12/20/21 Store Product Demonstrator Relationship Specialty Start Date End Date Claudine Durán MD [address] [place] [address] PCP - General Internal Medicine 03/02/16 Will Hurley [address] [place] [facility] [place] [place] [address] Referring Rheumatology 04/09/18 Lulú Ramos, RN [address] [facility] [place] [address] [employer] [facility] Medicine 12/20/21 Store Product Demonstrator Relationship Specialty Start Date End Date Claudine Durán MD [address] [place] [address] PCP - General Internal Medicine 03/02/16 Will Hurley [facility] [place] [facility] [place] [place] [address] Referring Rheumatology 04/09/18 Lulú Ramos, PAULA [address] [facility] [place] [address] [employer] [facility] Medicine 12/20/21 Store Product Demonstrator Relationship Specialty Start Date End Date Claudine Durán MD [address] [place] [address] PCP - General Internal Medicine 03/02/16 Will Hurley [facility] [place] [facility] [place] [address] Referring Rheumatology 04/09/18 Lulú Ramos, RN [address] [facility] [place] [address] [employer] [facility] 12/20/21 Store Product Demonstrator Relationship Specialty Start Date End Date Claudine Durán MD [address] [place] [address] PCP - General Internal Medicine 03/02/16 [address] [place] [address] Referring Rheumatology 04/09/18 Lulú Ramos, RN [address] [place], [place] [id number] [employer] [facility] 12/20/21 Store Product Demonstrator Relationship Specialty Start Date End Date Claudine Durán MD [address] [place] [address] PCP - General Internal Medicine 03/02/16 Will Hurley [facility] [place] [address] Referring Rheumatology 04/09/18 Lulú Ramos, RN [address] [place] [address] [employer] [facility] 12/20/21 Store Product Demonstrator Relationship Specialty Start Date End Date Claudine Durán MD [address] [place] [address] PCP - General Internal Medicine 03/02/16 Will Hurley [facility] [place] [address] Referring Rheumatology 04/09/18 Lulú Ramos, PAULA [address] [place] [address] [employer] [facility] 12/20/21 Store Product Demonstrator Relationship Specialty Start Date End Date Claudine Durán MD [address] [place] [address] PCP - General Internal Medicine 03/02/16 Will Hurley [facility] [place] [address] Referring Rheumatology 04/09/18 Lulú Ramos, RN [address] [facility] [place] [address] [employer] Family [facility] 12/20/21 Store Product Demonstrator Relationship Specialty Start Date End Date Claudine Durán MD [address] [place] [address] PCP - General Internal Medicine 03/02/16 Will Hurley [address] [place] [facility] [place] [place] [address] Referring Rheumatology 04/09/18 Ilda Miller RN [address] [place] [address] [employer] 07/27/22 Store Product Demonstrator Relationship Specialty Start Date End Date Claudine Durán MD [address] [place] [address] PCP - General Internal Medicine 03/02/16 Will Hurley [address] [facility] [place] [address] Referring Rheumatology 04/09/18 Ilda Miller RN [address] [facility] [place] [address] [employer] 07/27/22 Store Product Demonstrator Relationship Specialty Start Date End Date Claudine Durán MD [address] [place] [address] PCP - General Internal Medicine 03/02/16 Will Hurley [address] [place] [address] Referring Rheumatology 04/09/18 Ilda Miller RN [address] [place] [address] [employer] 07/27/22 Store Product Demonstrator Relationship Specialty Start Date End Date Claudine Durán MD [address] [place] [address] PCP - General Internal Medicine 03/02/16 Will Hurley [address] [facility] [place] [address] Referring Rheumatology 04/09/18 Ilda Miller, PAULA [address] [place] [address] [employer] 07/27/22 Store Product Demonstrator Relationship Specialty Start Date End Date Claudine Durán MD [address] [place] [address] PCP - General Internal Medicine 03/02/16 Will Hurley [address] [facility] [place] [address] Referring Rheumatology 04/09/18 Ilda Miller, PAULA [address] [place] [address] [employer] 07/27/22 Store Product Demonstrator Relationship Specialty Start Date End Date Claudine Durán MD [address] [place] [address] PCP - General Internal Medicine 03/02/16 Will [address] [place] [address] Referring Rheumatology 04/09/18 Ilda Miller RN [address] [place] [address] [employer] 07/27/22 Store Product Demonstrator Relationship Specialty Start Date End Date Claudine Durán MD [address] [place] [address] PCP - General Internal Medicine 03/02/16 Will Hurley [address] [facility] [place] [place] [address] Referring Rheumatology 04/09/18 Ilda Miller, PAULA [address] [place] [address] [employer] 07/27/22 Store Product Demonstrator Relationship Specialty Start Date End Date Claudine Durán MD [address] [place] [address] PCP - General Internal Medicine 03/02/16 Will Hurley [address] [facility] [place] [place] [address] Referring Rheumatology 04/09/18 Ilda Miller RN [address] [place] [address] [employer] 07/27/22 Store Product Demonstrator Relationship Specialty Start Date End Date Claudine Durán MD [address] [place] [address] PCP - General Internal Medicine 03/02/16 Will Hurley [address] [place] [address] Referring Rheumatology 04/09/18 Ilda Miller RN [address] [place] [address] [employer] 07/27/22 Store Product Demonstrator Relationship Specialty Start Date End Date Claudine Durán MD [address] [place] [address] PCP - General Internal Medicine 03/02/16 Will Hurley [address] [place] [place] [address] Referring Rheumatology 04/09/18 Ilda Miller RN [address] [place] [address] [employer] 07/27/22 Store Product Demonstrator Relationship Specialty Start Date End Date Claudine Durán MD [address] [place] [address] PCP - General Internal Medicine 03/02/16 [address] [facility] [place] [address] Referring Rheumatology 04/09/18 Ilda Miller RN [address] [place] [address] [employer] 07/27/22 Store Product Demonstrator Relationship Specialty Start Date End Date Claudine Durán MD [address] [place] [address] PCP - General Internal Medicine 03/02/16 Will Hurley [address] [address] Referring Rheumatology 04/09/18 Ilda Miller, PAULA [address] [place] [address] [employer] 07/27/22 Store Product Demonstrator Relationship Specialty Start Date End Date Claudine Durán MD [address] [place] [address] PCP - General Internal Medicine 03/02/16 Will Hurley [address] [place] [facility] [place] [place] [address] Referring Rheumatology 04/09/18 Lulú Ramos, PAULA [address] [place], [place] [id number] [employer] Family Medicine 12/20/2107/26 Store Product Demonstrator Relationship Specialty Start Date End Date Claudine Durán MD [address] [place] [address] PCP - General Internal Medicine 03/02/16 Will Hurley [address] [place] [facility] [place] [place] [address] Referring Rheumatology 04/09/18 Ilda Miller RN [address] [place] [address] [employer] 07/27/22 Store Product Demonstrator Relationship Specialty Start Date End Date Claudine Durán MD [address] [place] [address] PCP - General Internal Medicine 03/02/16 Will Hurley [address] [facility] [place] [address] Referring Rheumatology 04/09/18 Ilda Miller RN [address] [place], [place] [id number] [employer] 07/27/22 FOR RECORDS PERTAINING TO PATIENTS WHO [...] BE BASED ON THE PRIMARY CLINICAL RECORDS. [facility] [employer] [facility]. provides no warranty or guarantee of the accuracy or completeness of information in this document.
--- NOTE | 2023-03-26 13:00 | RAD_ITS ---
STUDY: X-RAY CHEST REASON FOR EXAM: Female, 77 years old. Chest pain TECHNIQUE: Single AP portable view of the chest. COMPARISON: None. FINDINGS: EKG electrodes are seen. Mild degree of the reticular nodular pattern seen at the lung bases. There is no demonstrated pleural abnormality. Normal size heart. Normal mediastinum and vivien. Normal visualized pulmonary arteries. There is atherosclerotic calcification of the aortic arch with tortuosity. Normal visualized thoracic spine. Normal visualized ribs, clavicles, and shoulders. There is no demonstrated abnormality of the visualized soft tissue structures of the upper abdomen. RAD/Chest 1 View (Portable) IMPRESSION: Mild degree of increased reticular nodular pattern at the lung bases. No acute infiltrate is seen. Electronically Signed: Geo Ni MD at 13:20 EST ,
--- NOTE | 2023-03-26 13:00 | EX.ED.DYSGE1 ---
HPI History of Present Illness Chief Complaint: Shortness of Breath Narrative Narrative: 77-year-old female presenting with shortness of breath. She needs placement. She is unable to care for self at home. Patiently recently seen on 03/21/2023 at [facility] was transferred to [facility] due to concern for bowel perforation which was managed medically. Patient was on Cipro and Flagyl for this. 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 She also treated with remdesivir and dexamethasone for COVID-19 which she was diagnosed with prior to admission. She did not require any surgery. Her Coumadin was restarted prior to discharge. Patient was noted to have severe aortic stenosis and will require follow-up for this as an outpatient. She also had a moderate pericardial effusion. Patient states that she was discharged yesterday. Today her legs are weeping. She is urinating on herself. She states they did a trick yesterday to stop her from urinating. So they can discharge her home from [facility]. Patient may need a TAVR in the future. She may need mitral valve repair.. Her creatinine was elevated while she was at [facility]. She was discharged home on Cipro and Flagyl. She will continue itraconazole twice daily. She is given Imodium for diarrhea. He has 4 more days of dexamethasone. She was to hold her HCTZ/irbesartan [facility] Medical History (Updated 03/26/23 @ 15:[address] Laine Veras MD) Colitis Histoplasmosis Pulmonary embolism Home Medications adalimumab 40 mg/0.4 mL subcutaneous pen kit (Humira(CF) Pen) 40 mg subcut Q14D 03/19/23 [History Last Taken Unknown] albuterol sulfate 90 mcg/actuation aerosol inhaler 1 puff inhalation Q4H PRN shortness of breath or wheezing 03/19/23 [History Last Taken Unknown] budesonide-formoterol HFA 160 mcg-4.5 mcg/actuation aerosol inhaler (Symbicort) 2 puff inhalation Q12H 03/19/23 [History Last Taken Unknown] fluticasone propionate 50 mcg/actuation nasal spray,suspension 2 spray intranasal Q12H 03/19/23 [History Last Taken Unknown] gabapentin 300 mg capsule 300 mg PO Q12H 03/19/23 [History Last Taken Unknown] irbesartan 150 mg-hydrochlorothiazide 12.5 mg tablet 1 tab PO DAILY 03/19/23 [History Last Taken Unknown] itraconazole 100 mg capsule 100 mg PO Q8H 03/19/23 [History Last Taken Unknown] leucovorin calcium 5 mg tablet 15 mg PO DAILY 03/19/23 [History Last Taken Unknown] methotrexate sodium 2.5 mg tablet 2.5 mg PO QWEEK 03/19/23 [History Last Taken Unknown] multivitamin (Daily Multi-Vitamin tablet) 1 tab PO DAILY 03/19/23 [History Last Taken Unknown] naproxen 500 mg tablet 500 mg PO Q12H 03/19/23 [History Last Taken Unknown] pantoprazole 40 mg tablet,delayed release 40 mg PO DAILY 03/19/23 [History Last Taken Unknown] potassium chloride 20 mEq tablet,extended release(part/cryst) (Klor-Con M) 20 meq PO BID 03/19/23 [History Last Taken Unknown] tiotropium bromide 2.5 mcg/actuation mist for inhalation (Spiriva Respimat) 2 puff inhalation Q24H 03/19/23 [History Last Taken Unknown] vitamins A,C,J-eweg-nyoicz 2,148 mcg-113 mg-45 mg-17.4 mg tablet (PreserVision AREDS) 2 tab PO BID 03/19/23 [History Last Taken Unknown] warfarin 5 mg tablet 5 mg PO DAILY 03/19/23 [History Last Taken Unknown] ciprofloxacin HCl 500 mg tablet 500 mg PO Q12H 03/26/23 [History Last Taken Unknown] dexamethasone 6 mg tablet 6 mg PO DAILY 03/26/23 [History Last Taken Unknown] itraconazole 100 mg capsule 100 mg PO DAILY 03/26/23 [History Last Taken Unknown] Allergy/AdvReac Type Severity Reaction Status Date / Time Penicillins Allergy Severe Anaphylaxis Verified 03/26/23 10:48 Surgical History Hx of foot surgery Social History Smoking Status: Never smoker ROS ROS ED Constitutional Constitutional ED: Denies chills, fever(s) or sweats Eyes Eyes: Denies blurry vision or change in vision ENT ENT ED: Denies ear pain or sore throat Cardiovascular Cardiovascular: Denies chest pain, palpitations or racing heartbeat Respiratory/Chest Respiratory/Chest: Reports dyspnea and dyspnea on exertion; Denies cough or sputum Gastrointestinal Gastrointestinal: Denies abdominal pain, constipation, diarrhea, nausea or vomiting Genitourinary Genitourinary ED: Reports urinary frequency; Denies dysuria or hematuria Musculoskeletal Musculoskeletal: Denies arthralgias, myalgias or neck pain Integumentary Reports other Details: Lower extremity edema ; Denies abscess, Abrasions or rash Neurologic Neurologic: Denies headache(s), paresthesias or weakness Psychiatric Psychiatric: Denies anxiety, depression, suicidal ideation or suicidal thoughts Endocrine Endocrinology: Denies polydipsia or polyuria EXAM Physical Exam Const Vital Signs: 03/26/23 10:48 03/26/23 11:23 03/26/23 13:19 Temperature 97.3 F L Temperature Source Temporal Pulse Rate 94 Respiratory Rate 23 H Respiratory Effort Normal Non-Labored Respiratory Depth Normal Respiratory Pattern Normal Blood Pressure 122/74 H Blood Pressure Mean 90 Pulse Ox 96 Oxygen Delivery Method Room Air Room Air Room Air 03/26/23 15:00 Temperature Temperature Source Pulse Rate 87 Respiratory Rate 19 H Respiratory Effort Respiratory Depth Respiratory Pattern Blood Pressure 128/75 H Blood Pressure Mean 92 Pulse Ox 95 Oxygen Delivery Method Room Air Positive well nourished General Appearance ED: NAD; Negative for pallor HEENT Reports moist mucous membranes Eyes PERRL and EOMs intact bilaterally Chest Wall inspection of chest normal Resp normal respiratory effort and clear to auscultation bilaterally Auscultation: Negative for rales or rhonchi Cardio regular rate and regular rhythm GI normal to inspection, nondistended, normoactive bowel sounds Extremity General Extremety ED: Yes edema General Extremity: edema Neuro oriented x3 and CN's II-XII intact bilaterally Sensorium / Orientation: alert Skin no rashes or lesions noted General Skin Exam: Negative for jaundice or pallor MDM MDM MDM Narrative Medical decision making narrative: Patient presenting with debility. She think she needs help getting her medications that she does not think she will do well if she goes home and does not feel she will care for self. Patient does state that she is very short of breath but is able to talk in full sentences and is not in any distress at all. Lungs clear to auscultation. Patient not tachycardic or tachypneic when I am examining her. She not hypoxic and she is on room air at 95 to 96%. Given her recent COVID and her shortness of breath we will obtain a chest x-ray to rule out pneumonia. CBC to assess for blood cell count, hemoglobin, platelets. BMP to assess renal function, electrolytes, glucose. High-sensitivity troponin EKG to assess for ischemia/dysrhythmia. BNP to assess for CHF. EKG on my interpretation shows sinus rhythm at 101 bpm without sign of ischemic change. Chest x-ray my interpretation shows no acute process. CBC shows a 16.9 white count. Hemoglobin 8.9. This is near her previous baseline. INR therapeutic at 3.2. High-sensitivity troponin is 20. BNP slightly elevated at 322 however chest x-ray does not show CHF and she again is not hypoxic or tachypneic on examination. Workup ultimately only shows a leukocytosis which could be from steroids as she was recently treated for COVID with Decadron in the hospital. Chest x-ray is normal. I spoke with the hospitalist for admission and placement. Impression: 1. Dyspnea 2. Leukocytosis 3. Debility Lab Data Attestation: I reviewed the patient's lab results. Labs: Laboratory Results - last 24 hr 03/26/23 13:15 WBC 16.9 H RBC 3.29 L Hgb 8.9 L Hct 26.8 L MCV 81.5 MCH 27.1 MCHC 33.2 RDW Std Deviation 48.8 H RDW Coeff of Catarino 19.6 H Plt Count 169 MPV 9.9 Immature Gran % (Auto) 3.700 H Neut % (Auto) 80.3 H Lymph % (Auto) 6.3 L Winona % (Auto) 9.6 Eos % (Auto) 0.0 Baso % (Auto) 0.1 Absolute Neuts (auto) 13.6 H Absolute Lymphs (auto) 1.06 Nucleated RBC % 0.1 Differential Comment SCANNED Diff Path Review June foll PT 33.3 H INR 3.2 Sodium 135 L Potassium 3.6 Chloride 101 Carbon Dioxide 27.0 Anion Gap 7 BUN 31 H Creatinine 0.89 Estim Creat Clear Calc 49.15 Est GFR (MDRD) Af Amer 79 Est GFR (MDRD) Non-Af 66 BUN/Creatinine Ratio 34.8 H Glucose 111 H Calcium 8.1 L Troponin I High Sens 20 B-Natriuretic Peptide 322.3 H Radiography Diagnostic Testing: Clinical Impression(s) from Imaging Studies Chest X-Ray 03/26/23 13:00 IMPRESSION: Mild degree of increased reticular nodular pattern at the lung bases. No acute infiltrate is seen. Electronically Signed: Geo Ni MD at 13:20 EST Reading Location ID and State: [facility] / [place] , Service support , Discharge Plan Triage Chief Complaint: Shortness of Breath ED Provider: Ryan Cornejo Dx/Rx/DC Orders Primary Care Provider: Deyanira Pak
[2023-03-26 13:30] LABS: Absolute Lymphocyte Count 1.06 X10^3/uL (0.83-4.51); Absolute Neutrophil Count 13.6 X10^3/uL (2.0-7.7); Basophil# 0.02 X10^3/uL; Basophil% 0.1 % (0-1); Hematocrit 26.8 % (37-47); Hemoglobin 8.9 g/dL (12.0-15.0); Lymphocyte # 1.06 X10^3/ul (0.83-4.51); Lymphocyte % 6.3 % (19-41); Mean Corp Hgb Conc 33.2 g/dL (32-36); Mean Corpuscular Hgb 27.1 pg (27.0-32.0); Mean Corpuscular Volume 81.5 fL (81-99); Mean Platelet Vol. 9.9 fl (6.2-12.0); Monocyte# 1.63 X10^3/uL; Monocyte% 9.6 % (0-10); NRBC Flagged by Analyzer 0.1 % (0-5); Neutrophil % 80.3 % (47-70); POSITIVE DIFFERENTIAL YES; Platelet Count 169 K/mm3 (150-450); RBC Distribution Width CV 19.6 % (11.6-14.6); RBC Distribution Width SD 48.8 fl (35.1-43.9); Red Blood Count 3.29 M/mm3 (4.2-5.4); White Blood Count 16.9 K/mm3 (4.4-11.0)
[2023-03-26 13:34] LABS: Differential Indicated SCAN CRITERIA MET
[2023-03-26 13:40] LABS: International Normalized Ratio 3.2; Prothrombin Time (Protime)PT. 33.3 SECONDS (11.7-14.9)
[2023-03-26 13:47] LABS: Anion Gap 7 (5-15); BUN 31 mg/dL (7-18); BUN/Creat Ratio 34.8 RATIO (10-20); Calcium,Total 8.1 mg/dL (8.5-10.1); Chloride 101 mmol/L (98-107); Creatinine, Serum 0.89 mg/dL (0.55-1.02); EST Glomerular Filtration Rate 66 mL/min (>60); Est Glom Filt Rate - Afr Amer 79 mL/min (>60); Estimated Creatinine Clearance 49.15 ml/min; Glucose 111 mg/dL (74-106); Potassium 3.6 mmol/L (3.5-5.1); Sodium Level 135 mmol/L (136-145); Troponin-I HS 20 pg/mL (3.0-54.0)
[2023-03-26 13:54] LABS: Differential Comment SCANNED
[2023-03-26 14:09] LABS: BNP,B-Type NATRIURETIC PEPTIDE 322.3 pg/mL (0-100)
--- NOTE | 2023-03-26 15:27 | NURSING ---
DR BELL FOR DR GARCIA
--- NOTE | 2023-03-26 15:39 | NURSING ---
MED SURG OBS BELL DEBILITY
--- NOTE | 2023-03-26 15:51 | HP.PCM.HOS_ITS ---
[facility] Date of Admission: 03/26/23 Date of Service: 03/26/23 Chief Complaint: Confusion, shortness of breath [facility] Narrative ALENA BUSTAMANTE, is a 77-year-old female history of hypertension, GERD, RA, PE, severe aortic stenosis and moderate pericardial effusion, histoplasmosis presented to [facility] ED 03/26/2023 with shortness of breath and inability to care for self at home. Recently seen 03/21/2023 in [place] ED and transferred to [facility] due to concern for bowel perforation which was medically managed with Cipro and Flagyl. Additionally was subsequently found to have disseminated histoplasmosis and was started on itraconazole and also treated with remdesivir and dexamethasone for COVID-19 which was diagnosed prior to admission. She did not require any surgery and Coumadin was restarted prior to discharge. She was also found to have severe aortic stenosis and pericardial effusion and advised to follow-up on an outpatient basis. She was just discharged from [place] yesterday and today legs are weeping and she is urinating on herself. She was discharged home on Cipro and Flagyl and itraconazole twice daily as well as 4 more days of dexamethasone and given Imodium for diarrhea. She was instructed to hold her hydrochlorothiazide and irbesartan due to kidney function. In [facility] ED patient 96% on room air with a heart rate of 94 and blood pressure 122/74. White blood cell count 16.9 however patient is on steroids, chest x-ray with mild degree of increased reticular nodular pattern at lung bases but no acute infiltrate. BNP was 322 with troponin of 20. Given patient's inability to care for self at home hospitalist contacted for admission. Patient seen at bedside, patient tangential in normal sinus flight of ideas and some bizarre thinking. She reports that she got home yesterday from [facility] and was talking about the fact that she was given a urine pietro and could not pee until today, has continued to have some diarrhea that has not resolved. Patient also reports some leg swelling and shortness of breath this morning but was talking about that in relation to her medications and reading the side effects, she reports she became mostly concerned this morning when she was trying to read something and could not understand what she was reading and also felt like she could not walk and she does not feel she can care for herself at home. Does report a chronic cough and some sore throat associated with that, denies any chest pain, patient was alert and oriented but very hard to direct in conversation. [facility] Medical History (Updated 03/26/23 @ 15:[address] Laine Veras MD) Colitis Histoplasmosis Pulmonary embolism Home Medications adalimumab 40 mg/0.4 mL subcutaneous pen kit (Humira(CF) Pen) 40 mg subcut Q14D 03/19/23 [History Last Taken Unknown] albuterol sulfate 90 mcg/actuation aerosol inhaler 1 puff inhalation Q4H PRN shortness of breath or wheezing 03/19/23 [History Last Taken Unknown] budesonide-formoterol HFA 160 mcg-4.5 mcg/actuation aerosol inhaler (Symbicort) 2 puff inhalation Q12H 03/19/23 [History Last Taken Unknown] fluticasone propionate 50 mcg/actuation nasal spray,suspension 2 spray intranasal Q12H 03/19/23 [History Last Taken Unknown] gabapentin 300 mg capsule 300 mg PO Q12H 03/19/23 [History Last Taken Unknown] irbesartan 150 mg-hydrochlorothiazide 12.5 mg tablet 1 tab PO DAILY 03/19/23 [History Last Taken Unknown] itraconazole 100 mg capsule 100 mg PO 03/19/23 [History Last Taken Unknown] leucovorin calcium 5 mg tablet 15 mg PO DAILY 03/19/23 [History Last Taken Unknown] methotrexate sodium 2.5 mg tablet 2.5 mg PO QWEEK 03/19/23 [History Last Taken Unknown] multivitamin (Daily Multi-Vitamin tablet) 1 tab PO DAILY 03/19/23 [History Last Taken Unknown] naproxen 500 mg tablet 500 mg PO Q12H 03/19/23 [History Last Taken Unknown] pantoprazole 40 mg tablet,delayed release 40 mg PO DAILY 03/19/23 [History Last Taken Unknown] potassium chloride 20 mEq tablet,extended release(part/cryst) (Klor-Con M) 20 meq PO BID 03/19/23 [History Last Taken Unknown] tiotropium bromide 2.5 mcg/actuation mist for inhalation (Spiriva Respimat) 2 puff inhalation Q24H 03/19/23 [History Last Taken Unknown] vitamins A,C,R-ojrc-pyaizg 2,148 mcg-113 mg-45 mg-17.4 mg tablet (PreserVision AREDS) 2 tab PO BID 03/19/23 [History Last Taken Unknown] warfarin 5 mg tablet 5 mg PO DAILY 03/19/23 [History Last Taken Unknown] Allergy/AdvReac Type Severity Reaction Status Date / Time Penicillins Allergy Severe Anaphylaxis Verified 03/26/23 10:48 Surgical History Hx of foot surgery Social History Smoking Status: Never smoker ROS ROS Narrative General: Reports she was cold this morning but denies fevers HENT: Denies headache, denies stuffy nose, chronic sore throat with her chronic cough EYES: Denies changes in vision Resp: Has had some increased shortness of breath and cough Cardiac: Denies chest pain GI: Denies abdominal pain, still has some diarrhea, denies nausea/vomiting : Did urinate earlier Extremity: Some swelling in bilateral lower extremities MSK: Some generalized weakness Neuro: Denies any numbness/tingling Heme: Denies any bleeding or bruising Skin: Denies rashes Psychiatric: No complaints voiced Vital Signs Vital Signs Vital Signs: 03/26/23 10:48 03/26/23 11:23 03/26/23 13:19 Temperature 97.3 F L Temperature Source Temporal Pulse Rate 94 Respiratory Rate 23 H Respiratory Effort Normal Non-Labored Respiratory Depth Normal Respiratory Pattern Normal Blood Pressure 122/74 H Blood Pressure Mean 90 Pulse Ox 96 Oxygen Delivery Method Room Air Room Air Room Air 03/26/23 15:00 Temperature Temperature Source Pulse Rate 87 Respiratory Rate 19 H Respiratory Effort Respiratory Depth Respiratory Pattern Blood Pressure 128/75 H Blood Pressure Mean 92 Pulse Ox 95 Oxygen Delivery Method Room Air Weight Weight: 63.5 kg Body Mass Index (BMI) 23.3 Physical Exam Narrative General: Alert, oriented, difficult to direct in conversation HEENT: Atraumatic, normocephalic, dry mouth Eyes: Anicteric, normal conjunctiva, extraocular movements grossly intact Neck: Supple Respiratory: Clear to auscultation bilaterally, normal respiratory effort Cardiovascular: Regular rate and rhythm GI: Soft, nontender, nondistended Extremities: 1+ lower extremity edema Musculoskeletal: Moving all extremities Neuro: No overt focal neurological deficits Skin: No rashes appreciated Psych: Patient attempts to be cooperative, somewhat tangential and at times flight of ideas and has difficulty directly answering questions and has some bizarre content Results Lab / Micro Data 03/26/23 13:15 03/26/23 13:15 Labs: Laboratory Results - last 24 hr 03/26/23 13:15: WBC 16.9 H, RBC 3.29 L, Hgb 8.9 L, Hct 26.8 L, MCV 81.5, MCH 27.1, MCHC 33.2, RDW Std Deviation 48.8 H, RDW Coeff of Catarino 19.6 H, Plt Count 169, MPV 9.9, Immature Gran % (Auto) 3.700 H, Neut % (Auto) 80.3 H, Lymph % (A uto) 6.3 L, [place] % (Auto) 9.6, Eos % (Auto) 0.0, Baso % (Auto) 0.1, Absolute Neuts (auto) 13.6 H, Absolute Lymphs (auto) 1.06, Nucleated RBC % 0.1, Differential Comment SCANNED, Diff Path Review June, PT 33.3 H, INR 3.2, Sodium 135 L, Potassium 3.6, Chloride 101, Carbon Dioxide 27.0, Anion Gap 7, BUN 31 H, Creatinine 0.89, Estim Creat Clear Calc 49.15, Est GFR (MDRD) Af Amer 79, Est GFR (MDRD) Non-Af 66, BUN/Creatinine Ratio 34.8 H, Glucose 111 H, Calcium 8.1 L, Troponin I High Sens 20, B-Natriuretic Peptide 322.3 H Imaging Radiology Impression Chest X-Ray 03/26/23 13:00 IMPRESSION: Mild degree of increased reticular nodular pattern at the lung bases. No acute infiltrate is seen. Electronically Signed: Geo Ni MD at 13:20 EST , Assessment & Plan Assessment/Plan (1) Confusion: (2) Generalized weakness: (3) Histoplasmosis: (4) Colitis: (5) COVID-19: PLAN: Plan #Weakness, inability to care for self and changes in mental status -Unsafe to d/c home so hospitalist contacted for admission -PT/OT -SW and CM c/s -Patient with some almost flight of ideas and tangential speech with some bizarre content, may be due to her being on steroids however it is unclear what her baseline is -Will check TSH -Also awaiting UA #Shortness of breath -Chest x-ray with mild degree of increased reticular nodular pattern at lung bases but no acute infiltrate -96% on room air -Likely multifactorial -BNP 322 -Troponin 20 -Continue home inhalers -Do not hear significant crackles in lungs and patient did not look to be short of breath, will monitor daily weights and I's and O's -Did have slight increase in BNP but we have no baseline for this, saturating well, does not appear to be in distress, monitor closely for need for Lasix or further workup #Recent concern for bowel perf treated conservatively -Treated at [facility] -On cipro/flagyl, will continue this # Disseminated histoplasmosis -Continue itraconazole twice daily -Patient to follow-up with a Dr. Burger in 3 months # Recent COVID-19 -4 more days of dexamethasone -Tested positive here at the end of February #Hx and mod pericardial effusion -Seen at [place] gen and pt advised to f/u outpt -Will need to f/u after d/c for further monitoring and management #Hx PE -Resumed on coumadin -Daily PT/INR -INR 3.2 in ED -Awaiting med rec with accurate Coumadin dosing # Chronic anemia -Hemoglobin 9.0 on 03/19, today 8.9 -Continue to monitor #RA -Previously on humira, methotrexate, leucovorin -Will hold at this time given active treatment for her disseminated histoplasmosis and bowel perforation #GERD -Continue PPI #DVT ppx: On Coumadin Laine Veras MD Charges/Coding Visit Charges Inpatient E&M: 36131 Init Hosp L2
[2023-03-26 16:16] LABS: Bacteria 0 SEEN /hpf (None Seen); Mucous, Urine 0 SEEN /hpf (<or=2+); Red Blood Cells-Urine 0 SEEN /hpf (0-5); Squamous Epithelial Cells - UA 0 SEEN /hpf (5-10); White Blood Cells 0 SEEN /hpf (0-5)
[2023-03-26 16:34] LABS: Color, Urine Yellow (Yellow); Glucose, Dipstick Normal (Normal); Ketone-Dipstick Negative (Negative); Leukocyte Esterase-Dipstick Negative /ul (Negative); Nitrite-Dipstick Negative (Negative); Occult Blood-Urine 10 /ul (Negative); Protein-Dipstick 30 mg/dl (Negative); Specific Gravity, Urine 1.015 (1.002-1.030); Urine Bilirubin Dipstick Negative (Negative); Urine Clarity Clear (Clear); Urine Urobilinogen Normal (Normal); Urine pH 6.5 (5.0 - 8.0)
--- NOTE | 2023-03-26 16:35 | CASEMGMT ---
Emergency Department Social Work Sw informed that patient was brought to Emergency Department for medical concerns and is extremely anxious without discharge plan identified at this time. Sw presented to bedside and introduced self to patient and explained role. Patient observed laying in bed, with legs nargis crossed and weeping. Patient reports that she was brought to the ED last Sunday, and was then transferred to [facility] where she had her medical issues addressed, and was then discharged yesterday (03/25/23) to home. Patient states that she went to bed and then woke up this morning and couldn't feel her feet, so she asked her friends to bring her back to ED because she was unable to drive. Patient stated several times over and over that she wanted someone to call her PCP or her heart doctor so that they could confirm her list of medications and her medical needs so that ED staff would believe what she was saying. Sw encouraged patient to take a deep breath, and explained that no one in ED is disbelieving her, only trying to work with her to identify a discharge plan. Patient did calm down after drinking some water. Patient states that she is receptive to placement/ assisted living temporarily until her medical issues/ needs are addressed. Patient stated that she is also receptive to staying admitted over night as long as someone is available to take care of her home and cats while she is not there. Sw explained that once an identified plan is made, someone can help her get a hold of a friend who would be able to take care of those needs at home. Patient appearing to be more calm and open to listening to sw. Patient thanked sw for helping her. Patient initially appeared to be very anxious and with tangential thought process. Patient eventually did calm down and agreed to process things when the time presented itself. Patient agreeable to medical recommendations by medical staff. Patient to be admitted for observation so more fpc plan is able to be identified. Simona Manzano, [employer], [employer] ENG[employer]ER
--- OUTSIDE RECORDS SUMMARY | 2023-03-26 17:43 | XMS RPT_ITS | CCD ---
Author Name Unknown Address [address] [place] [address] Organization [facility] Care Team Providers Care Security Representative Name Role Phone Mykel Santamaria Unavailable Unavailable Mykel Santamaria Unavailable Unavailable UNKNOWN, REFERR Unavailable Unavailable Will Hurley Attending Unavailable PROVIDER, UNKNOWN Referring Unavailable No, PCP Primary Care Unavailable Claudine Durán MD Primary Care Provider Will Hurley Unavailable Gold Colón RN Unavailable UnavailClaudine Cannon MD Primary Care Provider Will Hurley Unavailable [phone] Gold Colón RN M Unavailable UnavailWill Vaz Unavailable [phone] Rachel MITCHELL, Lulú Unavailable [phone] Gold Colón RN Unavailable UnavailClaudine Cannon MD Primary Care Provider Will Hurley Unavailable Rachel RN, Lulú Unavailable [phone] Rachel RN, Lulú Unavailable [phone] Paul RN, Ilda Unavailable Kvmalena RN, Ilda Unavailable Rachel RN, Lulú Unavailable ADRI ZARAGOZA Referring Unavailable ULIZ DURÁNA Adam Primary Care Unavailable FLORENCE TERRY [...] [PENICILLINS] Propensity to adverse reactions (disorder) 5 [facility] Repository Medications Current Medications Medication Drug Class(es) [...] sources) Long-term current use of anticoagulant; Translations: [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] Onset: 04-01-2009 12-10-2014 Episodic Other aftercare (1 source) [facility] (current) use of 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; Translations: [Chronic anticoagulation] [...] 98.6 [degF] Adri Zaragoza APRN.SANTY Work Phone: [facility] 02-07-2023 10:36-0500 Body weight 59.69 kg Adri Zaragoza C++ PROFESSOR.SANTY Work Phone: [facility] 02-07-2023 10:36-0500 Diastolic blood pressure 82 mm[Hg] Adri Zaragoza C++ PROFESSOR.SANTY Work Phone: [facility] 02-07-2023 10:36-0500 Heart rate 87 /min Adri Zaragoza APRN.SANTY Work Phone: [facility] 02-07-2023 10:36-0500 Respiratory rate 18 /min Adri Zaragoza APRN.SANTY Work Phone: [facility] 02-07-2023 10:36-0500 SaO2% (BldA) [Mass fraction] 98 % Adri Callow C++ PROFESSOR.BREAD OVEN OPERATOR Work Phone: [facility] 02-07-2023 10:36-0500 Systolic blood pressure 134 mm[Hg] Adri Callow C++ PROFESSOR.BREAD OVEN OPERATOR Work Phone: [facility] 01-04-2023 10:33-0500 Body weight 58.06 kg Jimbo Carias C++ PROFESSOR.ROLLER MAKER Work Phone: [facility] 01-04-2023 10:33-0500 Diastolic blood pressure 75 mm[Hg] Jimbo Carias C++ PROFESSOR.ROLLER MAKER Work Phone: [facility] 01-04-2023 10:33-0500 Heart rate 77 /min Jimbo Carias C++ PROFESSOR.ROLLER MAKER Work Phone: [facility] 01-04-2023 10:33-0500 Respiratory rate 16 /min Jimbo Carias C++ PROFESSOR.ROLLER MAKER Work Phone: [facility] 01-04-2023 10:33-0500 Systolic blood pressure 128 mm[Hg] Jimbo Carias C++ PROFESSOR.ROLLER MAKER Work Phone: [facility] 10-27-2022 09:03-0400 Body weight 59.42 kg Jimbo Carias C++ PROFESSOR.ROLLER MAKER Work Phone: [facility] 10-27-2022 09:03-0400 Diastolic blood pressure 66 mm[Hg] Jimbo Carias C++ PROFESSOR.ROLLER MAKER Work Phone: [facility] 10-27-2022 09:03-0400 Heart rate 76 /min Jmibo Carias C++ PROFESSOR.ROLLER MAKER Work Phone: [facility] 10-27-2022 09:03-0400 Respiratory rate 16 /min Jimbo Carias C++ PROFESSOR.ROLLER MAKER Work Phone: [facility] 10-27-2022 09:03-0400 Systolic blood pressure 119 mm[Hg] Jimbo Carias C++ PROFESSOR.ROLLER MAKER Work Phone: [facility] 08-29-2022 09:26-0400 Body height 162.6 cm Rachelle Eris C++ PROFESSOR.BREAD OVEN OPERATOR Work Phone: [facility] 08-29-2022 09:26-0400 Body weight 58.51 kg Rachelle Eris C++ PROFESSOR.BREAD OVEN OPERATOR Work Phone: [facility] 08-29-2022 09:26-0400 Diastolic blood pressure 78 mm[Hg] Rachelle Eris C++ PROFESSOR.BREAD OVEN OPERATOR Work Phone: [facility] 08-29-2022 09:26-0400 Heart rate 75 /min Rachelle Eris C++ PROFESSOR.BREAD OVEN OPERATOR Work Phone: [facility] 08-29-2022 09:26-0400 SaO2% (BldA) [Mass fraction] 98 % Rachelle Eris C++ PROFESSOR.BREAD OVEN OPERATOR Work Phone: [facility] 08-29-2022 09:26-0400 Systolic blood pressure 142 mm[Hg] Rachelle Eris C++ PROFESSOR.BREAD OVEN OPERATOR Work Phone: [facility] 07-20-2022 09:28-0400 Body weight 58.06 kg Florence Terry MD Work Phone: [facility] 07-20-2022 09:28-0400 Diastolic blood pressure 72 mm[Hg] Florence Terry MD Work Phone: [facility] 07-20-2022 09:28-0400 Heart rate 50 /min Florence Terry MD Work Phone: [facility] 07-20-2022 09:28-0400 Respiratory rate 17 /min Florence Terry MD Work Phone: [facility] 07-20-2022 09:28-0400 SaO2% (BldA) [Mass fraction] 100 % Florence Terry MD Work Phone: [facility] 07-20-2022 09:28-0400 Systolic blood pressure 122 mm[Hg] Florence Terry MD Work Phone: [facility] 03-13-2022 10:13-0500 Body temperature 96.69 [degF] Claudine Durán MD Work Phone: [facility] 03-13-2022 10:13-0500 Body weight 59.56 kg Claudine Durán MD Work Phone: [facility] 03-13-2022 10:13-0500 Diastolic blood pressure 68 mm[Hg] Claudine Durán MD Work Phone: [facility] 03-13-2022 10:13-0500 Heart rate 75 /min Claudine Durán MD Work Phone: [facility] 03-13-2022 10:13-0500 Respiratory rate 18 /min Claudine Durán MD Work Phone: [facility] 03-13-2022 10:13-0500 SaO2% (BldA) [Mass fraction] 100 % Claudine Durán MD Work Phone: [facility] 03-13-2022 10:13-0500 Systolic blood pressure 112 mm[Hg] Claudine Durán MD Work Phone: [facility] 11-29-2021 10:07-0400 Body weight 58.51 kg Florence Terry MD Work Phone: [facility] 11-29-2021 10:07-0400 Diastolic blood pressure 76 mm[Hg] Florence Terry MD Work Phone: [facility] 11-29-2021 10:07-0400 Heart rate 92 /min Florence Terry MD Work Phone: [facility] 11-29-2021 10:07-0400 Respiratory rate 18 /min Florence Terry MD Work Phone: [facility] 11-29-2021 10:07-0400 SaO2% (BldA) [Mass fraction] 97 % Florence Terry MD Work Phone: [facility] 11-29-2021 10:07-0400 Systolic blood pressure 122 mm[Hg] Florence Terry MD Work Phone: [facility] 11-10-2021 09:22-0400 Body weight 60.33 kg Jimbo Carias C++ PROFESSOR.ROLLER MAKER Work Phone: [facility] 11-10-2021 09:22-0400 Diastolic blood pressure 80 mm[Hg] Jimbo Carias C++ PROFESSOR.ROLLER MAKER Work Phone: [facility] 11-10-2021 09:22-0400 Heart rate 76 /min Jimbo Carias C++ PROFESSOR.ROLLER MAKER Work Phone: [facility] 11-10-2021 09:22-0400 Respiratory rate 16 /min Jimbo Carias C++ PROFESSOR.ROLLER MAKER Work Phone: [facility] 11-10-2021 09:22-0400 Systolic blood pressure 152 mm[Hg] Jimbo Carias C++ PROFESSOR.ROLLER MAKER Work Phone: [facility] 09-20-2021 13:45-0400 Body weight 58.51 kg Jimbo Carias C++ PROFESSOR.ROLLER MAKER Work Phone: [facility] 09-20-2021 13:45-0400 Diastolic blood pressure 64 mm[Hg] Jimbo Carias C++ PROFESSOR.ROLLER MAKER Work Phone: [facility] 09-20-2021 13:45-0400 Heart rate 85 /min Jimbo Carias C++ PROFESSOR.ROLLER MAKER Work Phone: [facility] 09-20-2021 13:45-0400 SaO2% (BldA) [Mass fraction] 96 % Jimbo Carias C++ PROFESSOR.ROLLER MAKER Work Phone: [facility] 09-20-2021 13:45-0400 Systolic blood pressure 128 mm[Hg] Jimbo Carias C++ PROFESSOR.ROLLER MAKER Work Phone: [facility] 08-12-2021 11:01-0400 Body height 162.6 cm William Ambriz DO Work Phone: [facility] 08-12-2021 11:01-0400 Body weight 59.42 kg William Ambriz DO Work Phone: [facility] 08-12-2021 11:01-0400 Diastolic blood pressure 74 mm[Hg] William Ambriz DO Work Phone: [facility] 08-12-2021 11:01-0400 Heart rate 72 /min William Ambriz DO Work Phone: [facility] 08-12-2021 11:01-0400 SaO2% (BldA) [Mass fraction] 99 % William Ambriz DO Work Phone: [facility] 08-12-2021 11:01-0400 Systolic blood pressure 130 mm[Hg] William Ambriz DO Work Phone: [facility] 07-11-2021 08:10-0400 Body weight 58.06 kg Claudine Durán MD Work Phone: [facility] 07-11-2021 08:10-0400 Diastolic blood pressure 74 mm[Hg] Claudine Durán MD Work Phone: [facility] 07-11-2021 08:10-0400 Heart rate 76 /min Claudine Durán MD Work Phone: [facility] 07-11-2021 08:10-0400 Systolic blood pressure 122 mm[Hg] Claudine Durán MD Work Phone: [facility] 2021 14:57-0400 Body height 162.6 cm Julio Andujar MD Work Phone: [facility] 2021 14:57-0400 Body weight 58.33 kg Julio Andujar MD Work Phone: [facility] 2021 14:57-0400 Diastolic blood pressure 67 mm[Hg] Julio Andujar MD Work Phone: [facility] 2021 14:57-0400 Heart rate 98 /min Julio Andujar MD Work Phone: [facility] 2021 14:57-0400 Respiratory rate 14 /min Julio Andujar MD Work Phone: [facility] 2021 14:57-0400 SaO2% (BldA) [Mass fraction] 99 % Julio Andujar MD Work Phone: [facility] 2021 14:57-0400 Systolic blood pressure 144 mm[Hg] Julio Andujar MD Work Phone: [facility] 03-14-2021 08:08-0500 Body height 162.6 cm Claudine Durán MD Work Phone: [facility] 03-14-2021 08:08-0500 Body temperature 97.5 [degF] Claudine Durán MD Work Phone: [facility] 03-14-2021 08:08-0500 Body weight 58.06 kg Claudine Durán MD Work Phone: [facility] 03-14-2021 08:08-0500 Diastolic blood pressure 62 mm[Hg] Claudine Durán MD Work Phone: [facility] 03-14-2021 08:08-0500 Heart rate 87 /min Claudine Durán MD Work Phone: [facility] 03-14-2021 08:08-0500 Respiratory rate 14 /min Claudine Durán MD Work Phone: [facility] 03-14-2021 08:08-0500 SaO2% (BldA) [Mass fraction] 99 % Claudine Durán MD Work Phone: [facility] 03-14-2021 08:08-0500 Systolic blood pressure 118 mm[Hg] Claudine Durán MD Work Phone: [facility] Encounters Encounter Date Encounter Type Care Provider Facility Start: 03-23-2023 Telephone encounter Rachelle Leonard C++ PROFESSOR.BREAD OVEN OPERATOR Work Phone: PA PROVIDER ADULT Procedures Date Procedure Procedure Detail Performing Clinician Start: 02-07-2023 COVID & INFLUENZA A/ B & RSV NAAT, ROUTINE dAri Zaragoza C++ PROFESSOR.BREAD OVEN OPERATOR Work Phone: Start: 01-04-2023 PFIZER-BIONTECH COVI D-19 VACCINE ( SEASON) AGE 12+ YR [facility] C++ PROFESSOR.ROLLER MAKER Work Phone: Start: 01-04-2023 Prothrombin time [facility] C++ PROFESSOR.ROLLER MAKER Work Phone: Start: 11-17-2022 Screening digital br east tomosynthesis bi [facility] C++ PROFESSOR.ROLLER MAKER Work Phone: Start: 10-27-2022 INFLUENZA VACCINE, P RSV FREE, AGE 65+ YR, HIGH DOSE, QUADRIVALENT (FLUZONE HIGH-DOSE) [facility] C++ PROFESSOR.ROLLER MAKER Work Phone: Start: 08-29-2022 Ecg routine ecg w/le ast 12 lds i&r only [facility] Provider Start: 07-20-2022 Ct thorax w/o contra st material Florence Terry MD Work Phone: Start: 11-10-2021 INFLUENZA SEASONAL QUADRIVALENT HIGH DOSE AGE 65+ [facility] C++ PROFESSOR.ROLLER MAKER Work Phone: Start: 11-10-2021 PFIZER-BIONTECH COVI D-19 BIVALENT BOOSTER VACCINE, AGE 12+ YR [facility] C++ PROFESSOR.ROLLER MAKER Work Phone: Start: 11-10-2021 Adult depression scr eening assessment [facility] C++ PROFESSOR.ROLLER MAKER Work Phone: Start: 10-18-2021 Radex foot complete minimum 3 views Yonas Louise Work Phone: Start: 10-12-2021 Diagnostic mammograp hy computer-aided detcj uni [facility] C++ PROFESSOR.BREAD OVEN OPERATOR Work Phone: Start: 09-05-2021 End: 09-05-2021 Screening mammography bi 2-view breast inc [facility] C++ PROFESSOR.BREAD OVEN OPERATOR Work Phone: Start: 07-11-2021 PFIZER-BIONTECH COVI D-19 VACCINE, AGE 12+ YR (ARIAS TOP) Claudine Durán MD Work Phone: Start: 05-19-2022 Lipid 1996 panel - S luisito or Plasma Ashly Shay RN Start: 07-13-2020 Adult depression scr eening assessment Nara Talavera Start: 06-01-2020 Mammography Nara cobos Start: 03-24-2019 Colonoscopy Nara cobos Plan of Treatment Date Care Activity Detail Author Start: 11-05-2029 Urine microalbumin profile [facility] Start: 03-24-2029 Colonoscopy COLONOSCOPY [facility] Start: 03-24-2029 COLORECTAL CANCER SCREENING COLORECTAL CANCER SCREENING [facility] Start: 03-24-2029 Screening for malignant neoplasm of colon [facility] Start: 07-07-2026 Lipid 1996 panel - Serum or Plasma Lipid Screening [facility] Start: 07-07-2026 Lipid panel Lipid Screening [facility] Start: 07-07-2026 LIPID SCREEN LIPID SCREEN [facility] Start: 03-22-2026 Diabetes Screening Diabetes Screening [facility] Start: 03-03-2024 BP Controlled (<130/80) BP Controlled (<130/80) [facility] Start: 01-05-2024 BP Controlled (<130/80) BP Controlled (<130/80) [facility] Start: 10-28-2023 BP CONTROLLED (<130/80) BP CONTROLLED (<130/80) [facility] Start: 07-21-2023 BP CONTROLLED (<130/80) BP CONTROLLED (<130/80) [facility] Start: 07-08-2023 DIABETES SCREEN DIABETES SCREEN [facility] Start: 07-08-2023 Diabetes Screening Diabetes Screening [facility] Start: 03-13-2023 ANNUAL PCP TEAM CHRONIC DISEASE VISIT ANNUAL PCP TEAM CHRONIC DISEASE VISIT [facility] Start: 03-13-2023 BP CONTROLLED (<130/80) BP CONTROLLED (<130/80) [facility] Start: 03-01-2023 Covid-19 Vaccine () Covid-19 Vaccine () [facility] Start: 02-19-2023 Advance Directive Discussion Advance Directive Discussion [facility] Start: 02-19-2023 Depression Assessment Depression Assessment [facility] Start: 01-23-2023 End: 08-23-2023 Ct thorax w/o contrast material CT CHEST WO IVCON Radiology Routine Lung nodules Bronchiectasis without complication (HCC) Expected: 01/23/2023, Expires: 08/23/2023 [facility] Work Phone: Immunizations Immunization Date Immunization Notes Care Provider Galindo leyva 01-04-2023 COVID-19 vaccine, ag e 12+ yr, season (PFIZER-BIONTECH) Jimbo Carias C++ PROFESSOR.ROLLER MAKER Work Phone: [facility] Work Phone: 10-27-2022 influenza (HD-IIV4) vaccine, age 65+ yr, high dose, quadrivalent, PF (FLUZONE HIGH-DOSE) Jimbo Carias C++ PROFESSOR.ROLLER MAKER Work Phone: [facility] Work Phone: 11-10-2021 COVID-19 booster vaccine, age 12+ yr, bivalent (PFIZER-BIONTECH) Jimbo Carias C++ PROFESSOR.ROLLER MAKER Work Phone: [facility] Work Phone: 11-10-2021 influenza, high-dose , quadrivalent vaccine (FLUZONE HIGH DOSE QUADRIVALENT) Jimbo Carias C++ PROFESSOR.ROLLER MAKER Work Phone: [facility] Work Phone: 07-11-2021 COVID-19 vaccine, ag e 12+ yr (PFIZER-BIONTECH - ARIAS TOP) Kelly Ws Work Phone: [facility] 11-21-2020 COVID-19 original vaccine, age 12+ yr, monovalent (PFIZER-BIONTECH - PURPLE TOP) Claudine Durán MD Work Phone: [facility] 11-09-2020 COVID-19 vaccine, ag e 12+ yr (PFIZER-BIONTECH - PURPLE TOP) Nara Talavera [facility] 11-09-2020 influenza, high-dose , quadrivalent vaccine (FLUZONE HIGH DOSE QUADRIVALENT) Nara [facility] Work Phone: 05-13-2020 COVID-19 vaccine, ag e 12+ yr (PFIZER-BIONTECH - PURPLE TOP) Nara Talavera [facility] Work Phone: 04-22-2020 COVID-19 vaccine, ag e 12+ yr ([employer] - PURPLE TOP) [facility] Work Phone: 11-06-2019 influenza, high-dose , quadrivalent vaccine (FLUZONE HIGH DOSE QUADRIVALENT) [facility] Work Phone: 11-06-2019 tetanus and diphther ia toxoids, adsorbed, preservative free, for adult use (5 Lf of tetanus toxoid and 2 Lf of diphtheria toxoid) [facility] Work Phone: 11-28-2018 zoster vaccine recombinant [facility] 10-26-2018 influenza, high dose seasonal, preservative-free [facility] 07-23-2018 zoster vaccine recombinant [facility] 11-27-2017 influenza, high dose seasonal, preservative-free [facility] 02-07-2017 pneumococcal polysaccharide vaccine, 23 valrandall Durán MD Work Phone: [facility] 01-31-2017 influenza, high dose seasonal, preservative-free [facility] 12-13-2016 pneumococcal polysaccharide vaccine, 23 valrandall Durán MD Work Phone: [facility] 11-28-2016 pneumococcal polysaccharide vaccine, Lachelle Durán MD Work Phone: [facility] 12-13-2015 influenza, high dose seasonal, preservative-free [facility] 11-10-2014 influenza, high dose seasonal, preservative-free [facility] 03-30-2014 pneumococcal conjuga te vaccine, 13 valent [facility] 12-08-2013 pneumococcal polysaccharide vaccine, 23 ravi Durán MD Work Phone: [facility] 11-24-2013 influenza, seasonal, injectable [facility] 03-24-2013 pneumococcal polysaccharide vaccine, 23 valent [facility] 11-18-2012 influenza virus vacc ine, unspecified formulation [facility] Work Phone: 11-10-2011 influenza virus vacc ine, unspecified formulation [facility] 11-23-2010 influenza virus vacc ine, unspecified formulation [facility] 10-07-2009 tetanus toxoid, redu amarilis diphtheria toxoid, and acellular pertussis vaccine, adsorbed [facility] 10-29-2008 influenza virus vacc ine, unspecified formulation [facility] 09-22-1999 diphtheria and tetan us toxoids, adsorbed for pediatric use [facility] Work Phone: Payers Date Payer Category Payer Medicare [employer] MEDICARE A ETNA MEDICARE PPO [id number] 2021-Present [phone] [address] [place] [address] PPO [id number] 2021 Medicare AETNA MEDICARE A ETNA MEDICARE PPO [id number] 2021-Present [phone] [address] [place] [address] PPO [id number] 2021 Medicare [id number] 1945 Unknown [id number] Medicare [id number] Private Health Insurance Social History Date Type Detail Facility Start: 08-28-2019 End: 11-10-2021 Tobacco smoking status NHIS Ex-smoker [facility] End: 02-19-1989 History of tobacco use Current smoker [facility] End: 02-19-1989 History of tobacco use Cigarette Smoker [facility] Start: 05-03-2021 End: 03-03-2023 Alcohol intake Current drinker of alcohol (finding) [facility] Start: 11-28-2019 End: 03-06-2022 History SDOH Alcohol Frequency 2 [facility] Start: 11-28-2019 End: 03-06-2022 History SDOH Alcohol Std Drinks 1 [facility] Start: 03-31-2019 End: 03-06-2022 History SDOH Social Connections Mosque 3 [facility] Start: 03-31-2019 End: 03-06-2022 History SDOH Social Connections Living 4 [facility] Start: 07-28-2019 End: 03-06-2022 History SDOH Physical Activity DPW 5 [facility] Start: 03-31-2019 Education 18 [facility] Start: 08-28-2019 End: 11-10-2021 Tobacco Comment Late heavy smoker. [facility] Start: 1945 Sex Assigned At Female [facility] Start: 05-02-2021 End: 12-31-2021 Exposure to SARS-CoV-2 (event) Not sure [facility] Work Phone: Start: 08-28-2019 End: 06-22-2022 Cigarettes smoked current (pack per day) - Reported 1 [facility] Start: 08-28-2019 End: 11-10-2021 Tobacco use and exposure Smokeless tobacco non-user [facility] Start: 03-06-2022 End: 06-22-2022 Social connection and isolation panel [facility] Do you belong to any clubs or organizations such as restoration groups, unions, fraternal or athletic groups, or school groups? Yes [facility] Are you now , , , , never or living with a partner? [facility] How often to you hav e a drink containing alcohol? Monthly or less [facility] How many standard dr inks containing alcohol do you have on a typical day? 1 or 2 [facility] How often do you hav e 6 or more drinks on 1 occasion? Never [facility] How hard is it for y ou to pay for the very basics like food, housing, medical care, and heating Not hard at all [facility] Do you feel stress - tense, restless, nervous, or anxious, or unable to sleep at night because your mind is troubled all the time - these days [OSQ] Not at all [facility] (I/We) worried wheth er (my/our) food would run out before (I/we) got money to buy more. Never true [facility] In the past 12 month s, was there a time when you were not able to pay the mortgage or rent on time? No [facility] Start: 03-04-2019 Gender identity Identifies as female gender (finding) [facility] Start: 03-04-2019 Sexual orientation Heterosexual (finding) [facility] Goals Date Patient Goal Desired Activity /State Personal health goal Clinical Notes 03-08-2018 to 03-25-2023 Telephone Encounter - Rachelle Leonard APRN.BREAD OVEN OPERATOR - 03/23/2023 5:16 PM Adri Duran APRN.BREAD OVEN OPERATOR - 02/07/2023 10:52 AM Flex Brown RN - 02/02/2023 3:19 PM ESTPatient Instructions Note Date & Type Note Facility 03-25-2023 Note HNO ID: [id number] Author: ARMEN FERNANDEZ RN Service: Nursing Author Type: Registered Nurse Type: Nursing Progress Note Filed: 03/25/2023 08:58 Note Text: Sepsis alert, sound paged, vitals stable, pt stable, waitng for call-back from sound. [facility] 03-24-2023 Note HNO ID: [id number] Author: SHARAN RIVAS MD Service: Hospital Medicine [...] (SPORANOX) 200 mg ORAL BID phenol 1 [place] (CHLORASEPTIC) 1 [place] MUCOUS MEMBRANE (TOPICAL MOUTH AND THROAT) q [...] was found to be COVID-19 positive in [place]. 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 Pulmonology was consulted and patient was started on remdesivir and Decadron for COVID-19. Also started on itraconazole, Cipro and Flagyl. Surgery was involved with no surgical plans. # Pneumatosis intestinalis and pneumoper (more content not included)... [facility] 03-24-2023 Note HNO ID: [id number] Author: MAGAN COURTNEY DO Service: Pulmonary Disease [...] of disseminated histoplasmosis. She is followed in [place], [place]. She has a history of previous [...] She presented to the emergency room at [facility] after a vigorous coughing episode and coughing [...] (SPORANOX) 200 mg ORAL BID phenol 1 [place] (CHLORASEPTIC) 1 [place] MUCOUS MEMBRANE (TOPICAL MOUTH AND THROAT) q [...] no adenopathy; thyroi (more content not included)... [facility] 03-23-2023 Miscellaneous Notes Please schedule patient to follow with Dr. Burger in 2 months. Thank you documented in this encounter [facility] 03-23-2023 Note HNO ID: [id number] Author: TENZIN NELSON RN Service: Care Management Author Type: Registered Nurse Type: Care Mgt Progress Note Filed: 03/23/2023 14:44 Note Text: CARE MANAGEMENT PROGRESS NOTE SERVICE DATE: 03/23/2023 SERVICE TIME: 12:22 PM LOS: 4 days Post-Acute Discharge Planning Patient Goal(s): Be able to go home, General wellness Alzada of Choice Explained: Alzada of Choice Given: No Reason Not Given: [...] 23, 2023 TIME: 2:37 PM PAGER/CONTACT #: [phone] [facility] 03-23-2023 Note HNO ID: [id number] Author: MAGAN COURTNEY DO Service: Pulmonary Disease [...] of disseminated histoplasmosis. She is followed in [place], [place]. She has a history of previous [...] She presented to the emergency room at [facility] after a vigorous coughing episode and coughing [...] pelvis 03/19/2023 Abnorma (more content not included)... [facility] 03-23-2023 Note HNO ID: [id number] Author: SHARAN RIVAS MD Service: Hospital Medicine [...] (SPORANOX) 200 mg ORAL BID phenol 1 [place] (CHLORASEPTIC) 1 [place] MUCOUS MEMBRANE (TOPICAL MOUTH AND THROAT) q [...] and VTE on (more content not included)... [facility] 03-22-2023 Note HNO ID: [id number] Author: GENO BURGER MD Service: Infectious Disease [...] home -Patient can call my office at [phone] to get an appointment for about 3 [...] for recurrent lower extremity DVT, presented to [facility] 03/19/2023 for hemoptysis, going to the [facility] ED but then sent here due to [...] be COVID-positive. Interestingly a CAT scan at [facility] found pneumatosis intestinalis and intraperitoneal free air comp (more content not included)... [facility] 03-22-2023 Note HNO ID: [id number] Author: MAGAN COURTNEY DO Service: Pulmonary Disease [...] of disseminated histoplasmosis. She is followed in [place], [place]. She has a history of previous [...] She presented to the emergency room at [facility] after a vigorous coughing episode and coughing [...] Positive PCR for COVID-19 supposedly reported from [facility]. Chest and abdomen/pelvis reviewed CTA chest 03/19/2023 No pulmonary embolism Prominent reticular no (more content not included)... [facility] 03-22-2023 Note HNO ID: [id number] Author: YAN PEREZ DO Service: General Surgery [...] kg/m? Yan Perez DO 03/22/2023 1:52 PM] [facility] 03-22-2023 Note HNO ID: [id number] Author: JOSE LUIS CRISTOBAL DO Service: General [...] in ICU or 2174 if on RNF. [facility] 03-22-2023 Note HNO ID: [id number] Author: SHARAN RIVAS MD Service: Hospital Medicine Author Type: Physician Type: Progress Notes Filed: 03/23/2023 09:28 Note Text: DEPARTMENT OF HOSPITAL MEDICINE PROGRESS NOTE Hospital Medicine/Primary Attending: Sharan Rivas MD NIGHT AND WEEKEND COVERAGE: Before 7 pm please page Team color pager After 7pm please page [phone] MEDICATIONS: Current Facility-Administered Medications Medication Dose Route [...] (SPORANOX) 200 mg ORAL BID phenol 1 [place] (CHLORASEPTIC) 1 [place] MUCOUS MEMBRANE (TOPICAL MOUTH AND THROAT) q [...] plan: Haydee Weber (more content not included)... [facility] 03-21-2023 Note HNO ID: [id number] Author: GENO BURGER MD Service: Infectious Disease [...] for recurrent lower extremity DVT, presented to [facility] 03/19/2023 for hemoptysis, going to the [facility] ED but then sent here due to [...] be COVID-positive. Interestingly a CAT scan at [facility] found pneumatosis intestinalis and intraperitoneal free air [...] -- 03/21/23 1000 remdesivir in NaCl 0.9% Vial-Mate/ADD-[place] 100 mg 275 mL 100 mg, INTRAVENOUS, EVERY 24 HOURS See Hyperseve for full Linked Orders Report. 03/23/23 0959 03/20/23 1300 itraconazole 200 mg oral liquid (SPORANOX) 200 mg, ORAL, 3 TIMES DAILY 03/23/23 1259 03/19/23 2000 cipro (more content not included)... [facility] 03-21-2023 Note HNO ID: [id number] Author: PAMELA HALL MD Service: General Surgery Author Type: Physician Type: Progress Notes Filed: 03/22/2023 07:10 Note Text: Emergency General Surgery Progress Note SERVICE DATE: March 21, 2023 Emergency General Surgery Service Pager: For questions or concerns Mon-Fri 6a-5p please page [phone]. After 5pm and on Weekends and Holidays, [...] 0659 03/21/23 07 - 03/22/23 0659 Shift 8664-7015 3587-9801 3040-5399 24 Hour Total 0861-5877 8297-9101 1917-3067 24 Hour Total INTAKE IV 1275 1275 [...] Dose Route Frequency remdesivir in NaCl 0.9% Vial-Mate/ADD-[place] 100 mg 275 mL 100 mg INTRAVENOUS [...] (SPORANOX) 200 mg ORAL TID phenol 1 [place] (CHLORASEPTIC) 1 [place] MUCOUS MEMBRANE (TOPICAL MOUTH AND THROAT) q [...] arthritis (HCC) 03/07/2015 Overview Note: Dr. Hurley ([facility]) Assessment: 77 year old female with PMH significant for RA (Humira), HTN, h/o disseminated Histoplasmosis, bronchiectasis, VTE (on coumadin), pulmonary nodules, and presenting to the ED today after an episode of hemoptysis at home. CTAP had an incidental finding of a small amount of intraperitoneal air and pneumatosis in the colon. INR on arrival to [facility] was 9. She given Vitamin K and transferred here. Hospital Course/Operations/Procedures: * No surgery found * Plan: Pneumatosis intestinalis and intraperitoneal free air - labs and imaging reviewed - Small amount of air on (more content not included)... [facility] 03-21-2023 Note HNO ID: [id number] Author: MAGAN COURTNEY DO Service: Pulmonary Disease [...] of disseminated histoplasmosis. She is followed in [place], [place]. She has a history of previous [...] She presented to the emergency room at [facility] after a vigorous coughing episode and coughing [...] Positive PCR for COVID-19 supposedly reported from [facility]. Chest and abdomen/pelvis reviewed CTA chest 03/19/2023 [...] atrial cavity normal (more content not included)... [facility] 03-20-2023 Note HNO ID: [id number] Author: SABRA RICHARDSON RN Service: Care Management Author Type: Registered Nurse Type: Care Mgt Initial Assessment Filed: 03/20/2023 16:23 Note Text: CARE MANAGEMENT: ASSESSMENT AND DISCHARGE PLAN SERVICE DATE: March 20, 2023 SERVICE TIME: 4:19 PM PCP: Claudine Durán MD Primary Contact: Extended Emergency Contact Information Primary Emergency Contact: Suzie Gerardo (Stephany) Address: [address] [address] [facility] Relation: Friend Secondary Emergency Contact: Padmini Chang Address: [address] [place] [address], [place] [id number] [place] [address] Mobile Relation: Friend Admission Status: Inpatient Insurance Provider: [employer] PPO Discharge Planning requested by: Per Department Practice Potential Transition Plans Home Advance Directives Current Advance Directive: None Senior Clerk Attempted to Assist with AD Completion: Yes [...] wellness, Less pain, Wean off of O2 Alzada of Choice Explained: Alzada of Choice Given: No Reason Not Given: [...] 20, 2023 TIME: 4:19 PM CONTACT #: [phone] [facility] 03-20-2023 Note HNO ID: [id number] Author: MAGAN COURTNEY DO Service: Pulmonary Disease [...] of disseminated histoplasmosis. She is followed in [place], [place]. She has a history of previous [...] She presented to the emergency room at [facility] after a vigorous coughing episode and coughing [...] Positive PCR for COVID-19 supposedly reported from [facility]. Chest and abdomen/pelvis reviewed CTA chest 03/19/2023 [...] consistent with d (more content not included)... [facility] 03-20-2023 Note HNO ID: [id number] Author: PAMELA HALL MD Service: General Surgery Author Type: Physician Type: Progress Notes Filed: 03/20/2023 14:33 Note Text: Emergency General Surgery Progress Note SERVICE DATE: March 20, 2023 Emergency General Surgery Service Pager: For questions or concerns Mon-Fri 6a-5p please page [phone]. After 5pm and on Weekends and Holidays, please page [phone] if in ICU or [phone] if on RNF. SUBJECTIVE: NAEON. AF and [...] 03/20/23 0659 03/20/23699 - 03/21/23 0659 Shift 9530-5574 1314-7166 6649-8508 24 Hour Total 9424-9434 3525-4708 2472-5537 24 Hour Total INTAKE IV 300 100 [...] in the colon. INR on arrival to [facility] was 9. She given Vitamin K and [...] chemical anticoagulation - INR on arrival to [facility] was 9. She given Vitamin K prior to transfer - continue serial abdominal exams - notify general surgery of any acute changes in clinical status D/w Dr. Hall SIGNATURE: Christ Camarena MD PATIENT NAME: Haydee Bustamante DATE: March 20, 2023 TIME: 921 Pager: [phone] Emergency General Surgery Service Pager: For questions [...] the resident's findi (more content not included)... [facility] 03-03-2023 Note HNO ID: [id number] Author: NYASIA WICK APRN.BREAD OVEN OPERATOR Service: ? Author Type: Nurse Practitioner Type: [...] Bronchiectasis (HCC) COPD (chronic obstructive pulmonary disease) (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 Diverticulosis of colon (without mention of hemorrhage) Diverticulosis DVT, recurrent, lower extremity, acute ([facility]) 12/10/2014 Esophageal reflux Hiatal hernia 02/25/2018 Hypertension Lung nodule Personal history of unspecified urinary disorder 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 rheumatoid factor ([facility]) 03/07/2015 Dr. Hurley ([facility]) Unspecified hemorrhoids without mention of complication [...] SPINE FUSN,POST INTERBODY [address] [facility]. Diskectomy and laminectomy PAST SURGICAL [...] fluticasone (FLONASE) 50 mcg/actuation nasal sprayUse 1 [place] in each nostril once daily.Disp: 3 EachRfl: [address] (PROTONIX) 40 mg tabletTake 1 tablet by mouth once daily.Disp: 90 tabletRfl: 3 albuterol HFA (PROAIR HFA) 90 mcg/actuation inhalerInhale 2 Puffs as instructed every 4 hours as needed.Disp: 1 EachRfl: 2 vit A,C,Y-Zdvf-Kryukn (OCUVITE PRESERVISION) 2,148 mcg-113 mg-45 mg-17.4mg tabTake [...] mg by mout (more content not included)... [facility] 03-02-2023 Note HNO ID: [id number] Author: FLEX MEANS RN Service: ? Author Type: Registered Nurse Type: Progress Notes Filed: 03/02/2023 16:09 Note Text: pcp agrees with information [facility] 03-02-2023 Note HNO ID: [id number] Author: FLEX MEANS RN Service: ? Author Type: Registered Nurse Type: Progress Notes Filed: 03/02/2023 16:09 Note Text: patient had inr completed at [facility] patients inr is 1.7 (patients inr [...] 4 weeks (03/30/23) for follow up INR. [facility] 02-23-2023 Note HNO ID: [id number] Author: JOHANNA BENITES PA-C Service: ? Author Type: Physician Leather Stretcher Type: Progress Notes Filed: 02/23/2023 14:58 Note [...] coughing around Thanksgiving. She was seen in [facility] 02/07 and treated with Doxycycline for [...] Bronchiectasis (HCC) COPD (chronic obstructive pulmonary disease) (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 Diverticulosis of colon (without mention of hemorrhage) Diverticulosis DVT, recurrent, lower extremity, acute ([facility]) 12/10/2014 Esophageal reflux Hiatal hernia 02/25/2018 Hypertension Lung nodule Personal history of unspecified urinary disorder 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 rheumatoid factor ([facility]) 03/07/2015 Dr. Hurley ([facility]) Unspecified hemorrhoids without mention of complication [...] fluticasone (FLONASE) 50 mcg/actuation nasal sprayUse 1 [place] in each nostril once daily.Disp: 3 EachRfl: [address] (PROTONIX) 40 mg tabletTake 1 tablet by mouth once daily.Disp: 90 tabletRfl: 3 albuterol HFA (PROAIR HFA) 90 mcg/actuation inhalerInhale 2 Puffs as instructed every 4 hours as needed.Disp: 1 EachRfl: 2 vit A,C,K-Iifp-Uddstj (OCUVITE PRESERVISION) 2,148 mcg-113 mg-45 mg-17.4mg tabTake [...] FLX DX W/ (more content not included)... [facility] 02-21-2023 Note HNO ID: [id number] Author: Faviola Anthony, RT(R) Service: ? Author Type: Service Order Dispatcher Type: Progress Notes Filed: 02/21/2023 3:59 PM [...] JAIME WolfR) February 21, 2023 3:59 PM [facility] 02-14-2023 Note Patient Outreach (AM [facility] HAYDEE BUSTAMANTE ([id number]) 1945 F Date Time Provider Department 02/14/23 ILDA MILLER During your visit today, we recorded the following information about you: Ilda Miller RN 02/14/2023 9:29 AM Signed [facility] Telephonic Outreach Provider Action/FYI N/A Follow up [...] never short of breath. Based on assessment manager, the following disposition is advised: No symptoms or symptoms present, not severe. Routed to: No Action Needed PAN Education Provided this Outreach: No Upcoming appointments reviewed: Appointments for Next 60 Days Date Time Provider Location Dept Phone 02/21/2023 8:[address] [facility] (I-STAT) [place] Ponce [phone] 02/21/2023 9:00 AM JOHANNA BENITES [phone] 03/02/2023 9:45 AM ANTICOAG [facility] [phone] 04/09/2023 10:00 AM WILLIAM AMBRIZ [facility] [phone] Ilda Miller RN February 14, 2023 9:29 [...] (FLONASE) 50 mcg/actuation nasal spray Use 1 [place] in each nostril once daily. - pantoprazole DR (PROTONIX) 40 mg tablet Take 1 tablet by mouth once daily. - albuterol HFA (PROAIR HFA) 90 mcg/actuation inhaler Inhale 2 Puffs as instructed every 4 hours as needed. - vit A,C,J-Wnnu-Njkvss (OCUVITE PRESERVISION) 2,148 mcg-113 mg-45 mg-17.4mg tab [...] by this patient by: PATIENT Muna Harris (Composition Molder) [employer] for lap hand tool medications. Problem List As Of Date 02/14/2023 Noted Resolved ESOPHAGEAL REFLUX [K21.9] 03/06/2005 MERALGIA PARESTHETICA [G57.10] 03/06/2005 VOICE DISTURBANCE NEC [R49.8] 03/06/2005 Pain in joint, lower leg [M25.569] 10/18/2006 03/02/2018 Embolism and thrombosis (HCC) [I74.9] 11/23/2006 07/07/2021 ARTHROPATHY NOS-UNSPEC [M12.9] 12/05/2006 Enthesopathy of hip region [M76.899] 01/04/2009 07/07/2021 Elevated Liver Enzymes [R74.8] 04/01/2009 Rheumatoid arthritis (HCC) [M06.9] 04/01/2009 03/07/2015 [facility] current use of anticoagulant therapy *04/01/2009 Hypertension [I10] 04/13/2010 03/07/2015 Right sided sciatica [M54.31] 03/20/2011 03/30/2014 HNP (herniated nucleus pulposus), lumbar [M51.2*03/20/2011 Atrophic vaginitis [N95.2] 03/06/2013 Ganglion cyst [M67.40] 08/17/2014 DVT, recurrent, lower extremity, acute (HCC) [I*11/20 (more content not included)... [facility] 02-14-2023 Note HNO ID: [id number] Author: Ilda Miller RN Service: ? Author [...] never short of breath. Based on assessment manager, the following disposition is advised: No symptoms or symptoms present, not severe. Routed to: No Action Needed PAN Education Provided this Outreach: No Upcoming appointments reviewed: Appointments for Next 60 Days Date Time Provider Location Dept Phone 02/21/2023 8:[address] [facility] (I-STAT) [place] Ponce [phone] 02/21/2023 9:00 AM JOHANNA BENITES [phone] 03/02/2023 9:45 AM ANTICOAG [facility] [place] [phone] 04/09/2023 10:00 AM WILLIAM AMBRIZ [facility] [phone] Ilda Miller RN February 14, 2023 9:29 AM [facility] 02-07-2023 Note HNO ID: [id number] Author: Kathleen Alegria RT(R) Service: Radiology Author [...] RT Mariela(R) February 07, 2023 11:06 AM [facility] 02-07-2023 Note HNO ID: [id number] Author: Adri Zaragoza APRN.BREAD OVEN OPERATOR Service: ? Author Type: Nurse Practitioner Type: [...] Bronchiectasis (HCC) COPD (chronic obstructive pulmonary disease) (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 Diverticulosis of colon (without mention of hemorrhage) Diverticulosis DVT, recurrent, lower extremity, acute ([facility]) 12/10/2014 Esophageal reflux Hiatal hernia 02/25/2018 Hypertension Lung nodule Personal history of unspecified urinary disorder 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 rheumatoid factor ([facility]) 03/07/2015 Dr. Hurley ([facility]) Unspecified hemorrhoids without mention of complication [...] SPINE FUSN,POST INTERBODY [address] [facility]. Diskectomy and laminectomy PAST SURGICAL [...] fluticasone (FLONASE) 50 mcg/actuation nasal sprayUse 1 [place] in each nostril once daily.Disp: 3 EachRfl: [address] (PROTONIX) 40 mg tabletTake 1 tablet by mouth once daily.Disp: 90 tabletRfl: 3 albuterol HFA (PROAIR HFA) 90 mcg/actuation inhalerInhale 2 Puffs as instructed every 4 hours as needed.Disp: 1 EachRfl: 2 vit A,C,U-Loae-Rdvqnu (OCUVITE PRESERVISION) 2,148 mcg-113 mg-45 mg-17.4mg tabTake [...] and nursing n (more content not included)... [facility] 02-07-2023 History of Presen t illness [...] Bronchiectasis (HCC) COPD (chronic obstructive pulmonary disease) (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 Diverticulosis of colon (without mention of hemorrhage) Diverticulosis DVT, recurrent, lower extremity, acute ([facility]) 12/10/2014 Esophageal reflux Hiatal hernia 02/25/2018 Hypertension Lung nodule Personal history of unspecified urinary disorder 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 rheumatoid factor ([facility]) 03/07/2015 Dr. Hurley ([facility]) Unspecified hemorrhoids without mention of complication [...] SPINE FUSN,POST INTERBODY [address] [facility]. Diskectomy and laminectomy PAST SURGICAL [...] fluticasone (FLONASE) 50 mcg/actuation nasal spray^Use 1 [place] in each nostril once daily.^Disp: 3 Each^Rfl: [address] (PROTONIX) 40 mg tablet^Take 1 tablet by mouth once daily.^Disp: 90 tablet^Rfl: 3 albuterol HFA (PROAIR HFA) 90 mcg/actuation inhaler^Inhale 2 Puffs as instructed every 4 hours as needed.^Disp: 1 Each^Rfl: 2 vit A,C,Y-Fsxx-Obbidk (OCUVITE PRESERVISION) 2,148 mcg-113 mg-45 mg-17.4mg tab^Take [...] A/B & RSV NAAT, ROUTINE Adri Zaragoza APRN.BREAD OVEN OPERATOR documented in this encounter [facility] 02-05-2023 Note Patient Outreach (AM [facility]) HAYDEE BUSTAMANTE ([id number]) 1945 F Date Time Provider Department 02/05/23 ILDA MILLER During your visit today, we recorded the following information about you: Ilda Miller RN 02/05/2023 9:35 AM Signed CDM ESCALATION Provider Action / FYI: N/A Message received via: manager of global Pool Are you having any new symptoms that your PCP needs to know about? Yes Do you have new or worsening cough? Yes Do you need to use your rescue (Albuterol) inhaler or nebulizer more often than normal? Yes Contact made with patient: Yes The patient was identified by name and date of . Discussed Care with patient Based on assessment manager, the following disposition is advised: No [...] in bedroom at night. Advised evaluation at [facility]. Pt is agreeable to this and will go today to [facility] for evaluation. Advised if becomes SOB or [...] Visit: Community Monitoring Outreach [Other] Cmt: CDM Escalation[facility] questionnaire triggered call Primary Visit Diagnosis:Chronic obstructive pulmonary disease with acute exacerbation (HCC) [J44.1] Order(s):PT ED PULMONARY [[id number]] Order #: [id number]: 1 Prescriptions as of 02/05/2023 - budesonide-formoterol [...] (FLONASE) 50 mcg/actuation nasal spray Use 1 [place] in each nostril once daily. - pantoprazole DR (PROTONIX) 40 mg tablet Take 1 tablet by mouth once daily. - albuterol HFA (PROAIR HFA) 90 mcg/actuation inhaler Inhale 2 Puffs as instructed every 4 hours as needed. - vit A,C,T-Nuhb-Vwjhhz (OCUVITE PRESERVISION) 2,148 mcg-113 mg-45 mg-17.4mg tab [...] by this patient by: PATIENT Muna Harris (Composition Molder) [facility] for [facility] medications. 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 [facility] 02-05-2023 Note HNO ID: [id number] Author: Ilda Miller RN Service: ? Author Type: Registered Nurse Type: Progress Notes Filed: 02/05/2023 9:35 AM Note Text: CDM ESCALATION Provider Action / FYI: N/A Message received via: manager of global Pool Are you having any new symptoms that your PCP needs to know about? Yes Do you have new or worsening cough? Yes Do you need to use your rescue (Albuterol) inhaler or nebulizer more often than normal? Yes Contact made with patient: Yes The patient was identified by name and date of . Discussed Care with patient Based on assessment manager, the following disposition is advised: No [...] in bedroom at night. Advised evaluation at [facility]. Pt is agreeable to this and will go today to [place] for evaluation. Advised if becomes SOB or cough worsens to the point of not being able to catch her breath, or notes bluish tint around lips to go to nearest ED or call 911. Verbalizes understanding and agreement. Ilda Miller RN February 05, 2023 9:19 AM [facility] 02-02-2023 Note HNO ID: [id number] Author: Flex Means RN Service: ? Author Type: ? Type: Progress Notes Filed: 02/02/2023 3:19 PM Note Text: pcp agrees with information [facility] 02-02-2023 History of Presen t illness Narrative pcp agrees with information patient had inr completed at [facility] patients inr is 2.1 (patients inr [...] follow up INR. documented in this encounter [facility] 02-02-2023 Note HNO ID: [id number] Author: Flex Means RN Service: ? Author Type: ? Type: Progress Notes Filed: 02/02/2023 3:19 PM Note Text: patient had inr completed at [facility] patients inr is 2.1 (patients inr [...] 4 weeks (03/02/23) for follow up INR. [facility] 01-24-2023 Miscellaneous Notes GEREMIAS 07/20/22 Patient phones requesting refills as follows: Requested Prescriptions Pending Prescriptions Disp Refills budesonide-formoterol (SYMBICORT) 160-4.5 mcg/actuation inhaler [Pharmacy Med Name: BUDESONIDE/FORM INHALER 10.2GM 160/4.5MCG] 30.6 g 3 Sig: USE 2 INHALATIONS TWICE A DAY INSTRUCTED Please review and advise. Magalie Ngo LPN documented in this encounter [facility] 01-17-2023 Note HNO ID: [id number] Author: Flex Means RN Service: ? Author Type: ? Type: Progress Notes Filed: 01/17/2023 3:02 PM Note Text: pcp agrees with information [facility] 01-17-2023 Note HNO ID: [id number] Author: Flex Means RN Service: ? Author Type: ? Type: Progress Notes Filed: 01/17/2023 3:02 PM Note Text: patient had inr completed at [facility] patients inr is 1.9 (patients inr [...] the first normal reading since dose change [facility] 01-17-2023 History of Presen t illness Narrative pcp agrees with information patient had inr completed at [facility] patients inr is 1.9 (patients inr [...] since dose change documented in this encounter [facility] 01-10-2023 Note HNO ID: [id number] Author: Flex Means RN Service: ? Author Type: ? Type: Progress Notes Filed: 01/10/2023 3:47 PM Note Text: pcp agrees with information PATIENT NOTIFIED OF INFORMATION [facility] 01-10-2023 History of Presen t illness Narrative pcp agrees with information PATIENT NOTIFIED OF INFORMATION patient had inr completed at [facility] patients inr is 2.9 (patients inr [...] advise on recommendation documented in this encounter [facility] 01-10-2023 Note HNO ID: [id number] Author: Flex Means RN Service: ? Author Type: ? Type: Progress Notes Filed: 01/10/2023 3:47 PM Note Text: patient had inr completed at [facility] patients inr is 2.9 (patients inr [...] 01/17/23 please review and advise on recommendation [facility] 01-04-2023 Note HNO ID: [id number] Author: Yesenia Weinstein LPN Service: ? Author Type: ? Type: Progress Notes Filed: 01/04/2023 4:25 PM Note Text: Patient notified of providers message and verbalized understanding. [facility] 01-04-2023 Note HNO ID: [id number] Author: Jimbo Carias APRN.TYLOR Service: ? Author Type: Nurse Specialist Type: Progress Notes Filed: 01/04/2023 4:25 PM Note Text: OK to change coumadin to 7.5mg Tues,Sat,Sun and 5mg all other days and recheck INR in 1 week [facility] 01-04-2023 History of Presen t illness Narrative Patient notified of providers message and verbalized understanding. OK to change coumadin to 7.5mg Tues,Sat,Sun and 5mg all other days and recheck INR in 1 week patient had inr completed at [facility] patients inr is 2.6 (patients inr [...] advise on recommendation documented in this encounter [facility] 01-04-2023 Note HNO ID: [id number] Author: Flex Means RN Service: ? Author Type: ? Type: Progress Notes Filed: 01/04/2023 4:25 PM Note Text: patient had inr completed at [facility] patients inr is 2.6 (patients inr [...] 01/10/23 please review and advise on recommendation [facility] 01-04-2023 Note HNO ID: [id number] Author: Jimbo Carias APRN.ROLLER MAKER Service: ? Author Type: Nurse Specialist Type: [...] and COPD. HPI excerpted from previous visits: Priming Powder Premix Blender: Florence Terry MD, last seen July 20, 2022. Seen for follow-up of lung nodules bronchiectasis. Noted are a likely etiology for underlying bronchiectasis. Noted new nodularity of lung, likely represents inflammatory nodules. Will need follow-up CT. No this may improve with bronchopulmonary hygiene. Spiriva and intermittent albuterol has helped with cough. Stable. 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 Continued on current treatments unchanged. Follow-up echo advised, not yet scheduled.. Barley Steeper: [facility]. Continues with methotrexate, Humira.seen by [...] Occasional bruising. [facility] coumadin clinic. Referred by engineer first assistant to see orthopedic physician for her hip. [...] fluticasone (FLONASE) 50 mcg/actuation nasal sprayUse 1 [place] in each nostril once daily.Disp: 3 EachRfl: [address] (PROTONIX) 40 mg tabletTake 1 tablet by mouth once daily.Disp: 90 tabletRfl: 3 albuterol HFA (PROAIR HFA) 90 mcg/actuation inhalerInhale 2 Puffs as instructed every 4 hours as needed.Disp: 1 EachRfl: 2 vit A,C,G-Vdwi-Lezdyo (OCUVITE PRESERVISION) 2,148 mcg-113 mg-45 mg-17.4mg tabTake 2 tablets by mouth daily with breakfast.Disp: Rfl: potassium chloride ER (KLOR-CON M20) 20 mEq tabletTake 1 tablet by mouth twice daily.Disp: 180 tabletRfl: 3 leucovorin (LEUCOVORIN) 15 mg table (more content not included)... [facility] 01-04-2023 Instructions Jimbo Carias APRN.CNS - 01/04/2023 10:50 AM EST It appears that you have better coverage for the RSV vaccine at your local pharmacy. documented in this encounter [facility] 01-04-2023 History of Presen t illness [...] and COPD. HPI excerpted from previous visits: Priming Powder Premix Blender: Florence Terry MD, last seen July 20, 2022. Seen for follow-up of lung nodules bronchiectasis. Noted are a likely etiology for underlying bronchiectasis. Noted new nodularity of lung, likely represents inflammatory nodules. Will need follow-up CT. No this may improve with bronchopulmonary hygiene. Spiriva and intermittent albuterol has helped with cough. Stable. 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 Continued on current treatments unchanged. Follow-up echo advised, not yet scheduled.. Barley Steeper: [facility]. Continues with methotrexate, Humira.seen by [...] Occasional bruising. [facility] cou[facility]in clinic. Referred by engineer first assistant to see orthopedic physician for her hip. [...] fluticasone (FLONASE) 50 mcg/actuation nasal spray^Use 1 [place] in each nostril once daily.^Disp: 3 Each^Rfl: [address] (PROTONIX) 40 mg tablet^Take 1 tablet by mouth once daily.^Disp: 90 tablet^Rfl: 3 albuterol HFA (PROAIR HFA) 90 mcg/actuation inhaler^Inhale 2 Puffs as instructed every 4 hours as needed.^Disp: 1 Each^Rfl: 2 vit A,C,O-Wvzh-Arcazy (OCUVITE PRESERVISION) 2,148 mcg-113 mg-45 mg-17.4mg tab^Take [...] hemorrhage) Diverticulosis DVT, recurrent, lower extremity, acute ([facility]) 12/10/2014 Esophageal reflux Hiatal hernia 02/25/2018 Hypertension Lung nodule Personal history of unspecified urinary disorder 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 rheumatoid factor ([facility]) 03/07/2015 Dr. Hurley ([facility]) Unspecified hemorrhoids without mention of complication [...] to get at pharmacy discussed risks - PFIZER-morphCARD COVID-19 VACCINE (2022- [place]) AGE 12+ YR in office today Jimbo Carias APRN.ROLLER MAKER Medical Decision Making: Problems: Low: 2+ self-limited or minor problems Risk: Moderate: Drug management Medical Decision Making Level: 3 - Low documented in this encounter [facility] 12-20-2022 Miscellaneous Notes Patient has been [...] Maritza Preston LPN. documented in this encounter [facility] 12-14-2022 Note HNO ID: [id number] Author: Jimbo Carias APRN.ROLLER MAKER Service: ? Author Type: Nurse Specialist Type: Progress Notes Filed: 12/14/2022 3:38 PM Note Text: Continue with Coumadin dose unchanged and check INR in 2 or 3 weeks [facility] 12-14-2022 Note HNO ID: [id number] Author: Flex Means RN Service: ? Author Type: ? Type: Progress Notes Filed: 12/14/2022 3:38 PM Note Text: patient had inr completed at [facility] patients inr is 2.2 (patients inr [...] week lauryn and patient declines blood draw [facility] 12-14-2022 History of Presen t illness Narrative Continue with Coumadin dose unchanged and check INR in 2 or 3 weeks patient had inr completed at [facility] patients inr is 2.2 (patients [...] declines blood draw documented in this encounter [facility] 12-07-2022 Note HNO ID: [id number] Author: Yesenia Weinstein LPN Service: ? Author Type: ? Type: Progress Notes Filed: 12/07/2022 4:46 PM Note Text: Patient notified of providers message regarding coumadin instructions and verbalized understanding. [facility] 12-07-2022 Note HNO ID: [id number] Author: Carias, Jimbo, C++ PROFESSOR.ROLLER MAKER Service: ? Author Type: Nurse Specialist Type: Progress Notes Filed: 12/07/2022 4:46 PM Note Text: Recommend Coumadin 5 mg Gil Sunday and 7.5 mg all other days and check INR in 1 week [facility] 12-07-2022 History of Presen t illness Narrative Patient notified of providers message regarding coumadin instructions and verbalized understanding. Recommend Coumadin 5 mg Sunday and 7.5 mg all other days and check INR in 1 week patient had inr completed at [facility] patients inr is 2.5 (patients [...] advise on recommendation documented in this encounter [facility] 12-07-2022 Note HNO ID: [id number] Author: Flex Means RN Service: ? Author Type: ? Type: Progress Notes Filed: 12/07/2022 4:46 PM Note Text: patient had inr completed at [facility] patients inr is 2.5 (patients [...] 12/14/22 please review and advise on recommendation [facility] 11-20-2022 Miscellaneous Notes November 20, 2022 PID: [id number] Haydee Bustamante [address] [place] [id number] Dear Ms. Bustamante, We are pleased to [...] report will be kept on file at [facility] as part of your permanent medical record and are available for your continuing care. Thank you for allowing us to help in meeting your health care needs. Sincerely, Dr. Basurto Interpreting Radiologist [facility] (Normal over 40) documented in this encounter [facility] 11-17-2022 Note HNO ID: [id number] Author: Aide Gupta RT(R) Service: ? Author [...] Rosa Maria(R) November 17, 2022 9:00 AM [facility] 11-17-2022 Note HNO ID: [id number] Author: Shahnaz Ferguson Mammo Tech Service: ? Author Type: Service Order Dispatcher Type: Progress Notes Filed: 11/17/2022 9:25 AM [...] Haider Adams November 17, 2022 9:00 AM [facility] 11-17-2022 History of Presen t illness [...] AM Radiology Service Progress Note PATIENT NAME: Hyadee Bustamante DATE OF SERVICE: November 17, 2022 [...] 2022 9:00 AM documented in this encounter [facility] 11-17-2022 Miscellaneous Notes Negative, 1 year screening follow-up documented in this encounter [facility] 11-09-2022 Note HNO ID: [id number] Author: Jimbo Carias APRN.CNS Service: ? Author Type: Nurse Specialist Type: Progress Notes Filed: 11/09/2022 4:58 PM Note Text: Continue Coumadin dose unchanged and check INR in 4 weeks [facility] 11-09-2022 History of Presen t illness Narrative Continue Coumadin dose unchanged and check INR in 4 weeks patient had inr completed at [facility] patients inr is 1.9 (patients inr [...] follow up INR. documented in this encounter [facility] 11-09-2022 Note HNO ID: [id number] Author: Flex Means RN Service: ? Author Type: ? Type: Progress Notes Filed: 11/09/2022 4:58 PM Note Text: patient had inr completed at [facility] patients inr is 1.9 (patients inr [...] 4 weeks (12/07/22) for follow up INR. [facility] 11-09-2022 Note HNO ID: [id number] Author: Ron Bell MD Service: ? Author Type: Physician Type: Progress Notes Filed: 12/07/2022 8:52 AM Note Text: Ron Bell MD Department of Orthopaedics Orthopaedics [address] [facility] [address] Dept: [phone] Dept November 09, 2022 CHIEF COMPLAINT: New [...] acute pathology. 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 Web Merchant: PSCB Transcribe Date/Time: Dec 31 2021 11:55A [...] Anemia Bone marrow involvement with histoplasmosis Bronchiectasis ([facility]) COPD (chronic obstructive pulmonary disease) (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 Diverticulosis of colon (without mention of hemorrhage) Diverticulosis DVT, recurrent, lower extremity, acute ([facility]) 12/10/2014 Esophageal reflux Hiatal hernia 02/25/2018 Hypertension Lung nodule Personal history of unspecified urinary disorder 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 rheumatoid factor ([facility]) 03/07/2015 Dr. Hurley ([facility]) Unspecified hemorrhoids without mention of complication [...] SPINE FUSN,POST INTERBODY [address] [facility]. Diskectomy and laminectomy PAST SURGICAL HISTORY OF 03/07/1999 removal facial lesion PAST SURGICAL HISTORY OF 08/17/2014 excision soft tissue mass left index finger TONSILLECTOMY PRIMARY/SECONDARY TRANSCATH RETRIEVAL,PERCUT 12/28/2006 Family History: FAMILY HISTORY Problem Relation Age of Onset Cancer Mother brain Social History: Social History To (more content not included)... [facility] 11-09-2022 Miscellaneous Notes patients orders for coumadin clinic inr's has at this time. new order has been pended for approval if possible so that patient can continue to get inr's completed thru the coumadin clinic. coumadin clinic nurse only needs called if order can not be approved. documented in this encounter [facility] 11-09-2022 History of Presen t illness Narrative Ron Bell MD Department of Orthopaedics Orthopaedics [address] [facility] [address] Dept: [phone] Dept November 09, 2022 CHIEF COMPLAINT: New [...] acute pathology. 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 Web Merchant: PSCB Transcribe Date/Time: Dec 31 2021 11:55A [...] Anemia Bone marrow involvement with histoplasmosis Bronchiectasis ([facility]) COPD (chronic obstructive pulmonary disease) (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 Diverticulosis of colon (without mention of hemorrhage) Diverticulosis DVT, recurrent, lower extremity, acute ([facility]) 12/10/2014 Esophageal reflux Hiatal hernia 02/25/2018 Hypertension Lung nodule Personal history of unspecified urinary disorder 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 rheumatoid factor ([facility]) 03/07/2015 Dr. Hurley ([facility]) Unspecified hemorrhoids without mention of complication [...] SPINE FUSN,POST INTERBODY [address] [facility]. Diskectomy and laminectomy PAST SURGICAL [...] (FLONASE) 50 mcg/actuation nasal spray Use 1 [place] in each nostril once daily. pantoprazole DR (PROTONIX) 40 mg tablet Take 1 tablet by mouth once daily. albuterol HFA (PROAIR HFA) 90 mcg/actuation inhaler Inhale 2 Puffs as instructed every 4 hours as needed. vit A,C,G-Mwno-Jdzsby (OCUVITE PRESERVISION) 2,148 mcg-113 mg-45 mg-17.4mg tab [...] requesting physician via US mail. Jeana Sommers [facility] [address] Claudine Durán MD [address] [place] [address] [place] [address] Ron Bell MD documented in this encounter [facility] 11-02-2022 Miscellaneous Notes Patient calls back and states that [facility] does have prescription for coumadin. Isabella Zacarias RN Patient calling to say [facility] tells her they did not receive script for short fill Warfarin. Patient asking if it can be sent again. Pended. Melanie Mcgregor RN documented in this encounter [facility] 10-31-2022 Miscellaneous Notes Last OV: 10/27/22 [...] Charissa Perez LPN documented in this encounter [facility] 10-31-2022 Miscellaneous Notes Patient calling with request for medication/refill: Patient/caregiver requesting refill of Warfar[facility] Patient denies any new or worsening symptoms of which a provider is not aware: Yes. Patient just discovered she will run out of the below rx on . Is requesting a short term supply be sent to [facility] in [place] and the remainder sent to [facility]. Has been taking medication as ordered. warfarin (COUMADIN) 5 mg tablet 30 tablet 3 07/11/2022 Sig: Take 7.5 mg , Sun,Sun, Sat, Sun; and 5 mg on Sunday and Sunday Sent to pharmacy as: warfarin (COUMADIN) 5 mg tablet documented in this encounter [facility] 10-27-2022 Note HNO ID: [id number] Author: Jimbo Carias APRN.ROLLER MAKER Service: ? Author Type: Nurse Specialist Type: [...] bicuspid valve, lung nodule bronchiectasis and COPD. Priming Powder Premix Blender: Florence Terry MD, last seen July 20, 2022. Seen for follow-up of lung nodules bronchiectasis. Noted are a likely etiology for underlying bronchiectasis. Noted new nodularity of lung, likely represents inflammatory nodules. Will need follow-up CT. No this may improve with bronchopulmonary hygiene. Spiriva and intermittent albuterol has helped with cough. Stable. Sewing Machines Salesperson: William GOTTI, aortic stenosis , last seen in cardiology August 29, 2022 by Rachelle Lai CNP. Continued on current treatments unchanged. Follow-up echo advised, not yet scheduled.. Barley Steeper: [facility]. Continues with methotrexate, Humira.seen by Dr. Roque Zacarias 06/26/2022 for RA, osteoporosis, degenerative disc disease, arthritis of foot, osteoarthritis of bilateral hands. DEXA scan completed, showed osteoporosis. All yes trying recommended restart of Reclast. Weight: stable Exercise: walking miles most days, feeling well with this . Notes up to 10mi/day when participating in theSynapDx production Seen by PCP March 13, 2022. [...] pain, currently taking gabapentin. Plans to see redevelopment specialist, referred by engineer first assistant. Referred by engineer first assistant to see orthopedic physician for her hip. [...] fluticasone (FLONASE) 50 mcg/actuation nasal sprayUse 1 [place] in each nostril once daily.Disp: 3 EachRfl: [...] hours as needed.Disp: 1 EachRfl: 2 vit A,C,E-Ewec-Nlnuik (OCUVITE PRESERVISION) 2,148 mcg-113 mg-45 mg-17.4mg tabTake [...] puffs once da (more content not included)... [facility] 10-27-2022 History of Presen t illness [...] bicuspid valve, lung nodule bronchiectasis and COPD. Priming Powder Premix Blender: Florence Terry MD, last seen July 20, 2022. Seen for follow-up of lung nodules bronchiectasis. Noted are a likely etiology for underlying bronchiectasis. Noted new nodularity of lung, likely represents inflammatory nodules. Will need follow-up CT. No this may improve with bronchopulmonary hygiene. Spiriva and intermittent albuterol has helped with cough. Stable. 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 Continued on current treatments unchanged. Follow-up echo advised, not yet scheduled.. Barley Steeper: [facility]. Continues with methotrexate, Humira.seen by Dr. Rqoue Zacarias 06/26/2022 for RA, osteoporosis, degenerative disc disease, arthritis of foot, osteoarthritis of bilateral hands. DEXA scan completed, showed osteoporosis. All yes trying recommended restart of Reclast. Weight: stable Exercise: walking miles most days, feeling well with this . Notes up to 10mi/day when participating in the[employer] production Seen by PCP March 13, 2022. [...] pain, currently taking gabapentin. Plans to see redevelopment specialist, referred by engineer first assistant. Referred by engineer first assistant to see orthopedic physician for her hip. [...] fluticasone (FLONASE) 50 mcg/actuation nasal spray^Use 1 [place] in each nostril once daily.^Disp: 3 Each^Rfl: [...] hours as needed.^Disp: 1 Each^Rfl: 2 vit A,C,Z-Zjov-Kskpak (OCUVITE PRESERVISION) 2,148 mcg-113 mg-45 mg-17.4mg tab^Take [...] positive rheumatoid factor (HCC) 03/07/2015 Dr. Hurley ([facility]) Unspecified hemorrhoids without mention of complication [...] ICD9: 724.3, ICD10: M54.41 Plans to see redevelopment specialist 6. Hip pain, acute, left - ICD9: 719.45, ICD10: M25.552 7. 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 rheumatoid factor (HCC) - ICD9: 714.0, ICD10: M05.79 Followed by [facility] 8. Bronchiectasis without complication (HCC) - [...] 4 - Moderate documented in this encounter [facility] 10-27-2022 Instructions Jimbo Carias APRN.CNS - 10/27/2022 9:01 AM EDT Consider getting new COVID booster when it becomes available either in clinic or at pharmacy. documented in this encounter [facility] 10-26-2022 Note HNO ID: [id number] Author: Jimbo Carias APRN.CNS Service: ? Author Type: Nurse Specialist Type: Progress Notes Filed: 10/26/2022 4:39 PM Note Text: Continue with Coumadin dose unchanged and check INR in 2 weeks [facility] 10-26-2022 History of Presen t illness Narrative Continue with Coumadin dose unchanged and check INR in 2 weeks patient had inr completed at [facility] patients inr is 1.7 (patients inr [...] since dose change documented in this encounter [facility] 10-26-2022 Note HNO ID: [id number] Author: Flex Means RN Service: ? Author Type: ? Type: Progress Notes Filed: 10/26/2022 4:39 PM Note Text: patient had inr completed at [facility] patients inr is 1.7 (patients inr [...] the first normal reading since dose change [facility] 10-12-2022 Note HNO ID: [id number] Author: Maritza Preston LPN Service: ? Author Type: ? Type: Progress Notes Filed: 10/13/2022 10:06 AM Note Text: Left message to call AND speak to nurse re: Coumadin. Maritza Preston LPN [facility] 10-12-2022 Note HNO ID: [id number] Author: Jimbo Carias APRN.ROLLER MAKER Service: ? Author Type: Nurse Specialist Type: Progress Notes Filed: 10/13/2022 10:06 AM Note Text: Okay to change coumadin dose to 5mg Mon,Wed and 7.5mg all other days and recheck inr in 2 weeks [facility] 10-12-2022 History of Presen t illness Narrative Left message to call & speak to nurse re: Coumadin. Maritza Preston LPN Okay to change coumadin dose to 5mg Mon,Wed and 7.5mg all other days and recheck inr in 2 weeks patient had inr completed at [facility] patients inr is 1.5 (patients inr [...] advise on recommendation documented in this encounter [facility] 10-12-2022 Note HNO ID: [id number] Author: Flex Means RN Service: ? Author Type: ? Type: Progress Notes Filed: 10/13/2022 10:06 AM Note Text: patient had inr completed at [facility] patients inr is 1.5 (patients inr [...] 10/26/22 Please review and advise on recommendation [facility] 10-09-2022 Miscellaneous Notes Patient does not take twice daily every day. Benefits have outweighed the risks. Has been to cardiology and rheumatology for follow up. Labs through DTT--CBC and LFTs and Cr fine. The following [...] Thi [place], OCCA documented in this encounter [facility] 09-28-2022 Note HNO ID: [id number] Author: Jimbo Carias APRN.ROLLER MAKER Service: ? Author Type: Nurse Specialist Type: Progress Notes Filed: 09/28/2022 4:12 PM Note Text: Continue with Coumadin dose unchanged and check INR in 2 weeks [facility] 09-28-2022 Note HNO ID: [id number] Author: Flex Means RN Service: ? Author Type: ? Type: Progress Notes Filed: 09/28/2022 4:12 PM Note Text: patient had inr completed at [facility] patients inr is 1.8 (patients inr [...] the first normal reading since dose change [facility] 09-25-2022 Miscellaneous Notes Called PT and [...] Thanks ~ JJ documented in this encounter [facility] 09-15-2022 Miscellaneous Notes Pt called and [...] and pt findings. documented in this encounter [facility] 09-07-2022 Note HNO ID: [id number] Author: Flex Means RN Service: ? Author Type: ? Type: Progress Notes Filed: 09/07/2022 4:08 PM Note Text: PATIENT NOTIFIED OF INFORMATION [facility] 09-07-2022 Note HNO ID: [id number] Author: Jimbo Carias APRN.ROLLER MAKER Service: ? Author Type: Nurse Specialist Type: Progress Notes Filed: 09/07/2022 4:08 PM Note Text: Okay for 5 mg Coumadin Sunday and 7.5 mg all other days. Recheck INR in 1 week [facility] 09-07-2022 History of Presen t illness Narrative PATIENT NOTIFIED OF INFORMATION Okay for 5 mg Coumadin Sunday and 7.5 mg all other days. Recheck INR in 1 week patient had inr completed at [facility] patients inr is 2.4 (patients inr [...] 3 weeks patient has been scheduled at [facility] for an inr follow up 09/14/22 (order is already in place) please review and advise on recommendation documented in this encounter [facility] 09-07-2022 Note HNO ID: [id number] Author: Flex Means RN Service: ? Author Type: ? Type: Progress Notes Filed: 09/07/2022 4:08 PM Note Text: patient had inr completed at [facility] patients inr is 2.4 (patients inr [...] 3 weeks patient has been scheduled at [facility] for an inr follow up 09/14/22 (order is already in place) please review and advise on recommendation [facility] 08-29-2022 Note HNO ID: [id number] Author: Rachelle Lai APRN.CNP Service: ? Author Type: Nurse Practitioner Type: Progress Notes Filed: 09/11/2022 10:01 AM Note Text: [facility] [place] [facility] Department of Cardiovascular Medicine SECTION [...] which included preparing to see the patient, [id number] patient care, completing clinical documentation, performing a [...] prior to the follow up. Rachelle Lai APRN.BREAD OVEN OPERATOR Cardiology Nurse Practitioner Section of [facility] Cardiology [place] Dept of Cardiovascular Medicine [facility] [place] [address] [place] [address] Office Office August 29, 2022 7:46 AM This note was partially generated using [employer] voice recognition system and may contain errors [...] has progressed. :5 (more content not included)... [facility] 08-29-2022 Instructions Rachelle Lai APRN.SANTY - [...] in 6 months documented in this encounter [facility] 08-29-2022 History of Presen t illness Narrative Images from the original note were not included. [facility] [place] [facility] Department of Cardiovascular Medicine SECTION [...] which included preparing to see the patient, [id number] patient care, completing clinical documentation, performing a [...] prior to the follow up. Rachelle Lai APRN.[facility] Cardiology Nurse Practitioner Section of [facility] Cardiology [facility] Dept of Cardiovascular Medicine [facility] [place] [address] [place] [address] Office Office August 29, 2022 7:46 AM This note was partially generated using [employer] voice recognition system and may contain errors [...] nodule with faint calcifications suggesting calcified granuloma. Web Merchant: [facility] Transcribe Date/Time: Jul 24 2022 10:02A Dictated [...] Anemia Bone marrow involvement with histoplasmosis Bronchiectasis ([facility]) COPD (chronic obstructive pulmonary disease) (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 Diverticulosis of colon (without mention of hemorrhage) Diverticulosis DVT, recurrent, lower extremity, acute ([facility]) 12/10/2014 Esophageal reflux Hiatal hernia 02/25/2018 Hypertension Lung nodule Personal history of unspecified urinary disorder 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 rheumatoid factor ([facility]) 03/07/2015 Dr. Hurley ([facility]) Unspecified hemorrhoids without mention of complication [...] and ROS obtained by others. Rachelle Lai APRN.BREAD OVEN OPERATOR CURRENT MEDICATIONS: Current Outpatient Medications Medication Sig budesonide-formoterol (SYMBICORT) 160-4.5 mcg/actuation inhaler Inhale 2 Puffs as instructed twice daily. fluticasone (FLONASE) 50 mcg/actuation nasal spray Use 1 [place] in each nostril once daily. warfarin (COUMADIN) 5 mg tablet Take 7.5 mg , Anabel,Fri, Sat, Sun; and 5 mg on Sunday and Sunday pantoprazole DR (PROTONIX) 40 mg tablet Take 1 tablet by mouth once daily. albuterol HFA (PROAIR HFA) 90 mcg/actuation inhaler Inhale 2 Puffs as instructed every 4 hours as needed. vit A,C,G-Fnmq-Byahqi (OCUVITE PRESERVISION) 2,148 mcg-113 mg-45 mg-17.4mg tab [...] INTRAVENOUS DIRECTED PRN documented in this encounter [facility] 08-15-2022 Miscellaneous Notes GEREMIAS 07/20/22 Patient phones requesting refills as follows: Requested Prescriptions Pending Prescriptions Disp Refills budesonide-formoterol (SYMBICORT) 160-4.5 mcg/actuation inhaler Sig: Inhale as instructed twice daily. Please review and advise. Magalie Ngo LPN documented in this encounter [facility] 08-13-2022 Miscellaneous Notes Glad doing better. Thanks for update. Pt calls office /c update. She states she is on her 4th day of prednisone and she is feeling much better, feeling great. She states her pain is cut in half now. Bakari Catalan LPN documented in this encounter [facility] 08-10-2022 Note HNO ID: [id number] Author: Maritza Preston LPN Service: ? Author Type: ? Type: Progress Notes Filed: 08/10/2022 4:48 PM Note Text: Left below on identified vm, asked Patient to call back to let the office know she did receive. Maritza Preston LPN [facility] 08-10-2022 Note HNO ID: [id number] Author: Jimbo Carias APRN.ROLLER MAKER Service: ? Author Type: Nurse Specialist Type: Progress Notes Filed: 08/10/2022 4:48 PM Note Text: Continue with Coumadin dose unchanged and check INR in 4 weeks [facility] 08-10-2022 Note HNO ID: [id number] Author: Flex Means RN Service: ? Author Type: ? Type: Progress Notes Filed: 08/10/2022 4:48 PM Note Text: patient had inr completed at [facility] patients inr is 2.1 (patients inr [...] 4 weeks (09/07/22) for follow up INR. [facility] 07-27-2022 Note HNO ID: [id number] Author: Maritza Preston LPN Service: ? Author Type: ? Type: Progress Notes Filed: 07/27/2022 3:20 PM Note Text: Below left on identified vm. Patient is already scheduled in 2 weeks. Maritza Preston LPN [facility] 07-27-2022 Note HNO ID: [id number] Author: Jimbo Carias APRN.ROLLER MAKER Service: ? Author Type: Nurse Specialist Type: Progress Notes Filed: 07/27/2022 3:20 PM Note Text: Continue with current dosing and check INR 2 weeks [facility] 07-27-2022 Note HNO ID: [id number] Author: Flex Means RN Service: ? Author Type: ? Type: Progress Notes Filed: 07/27/2022 3:20 PM Note Text: patient had inr completed at [facility] patients inr is 1.7 ([facility] inr range is 1.7-2.2) patient is currently [...] the first normal reading since dose change [facility] 07-20-2022 Note HNO ID: [id number] Author: Florence Terry MD Service: ? Author Type: Physician Type: Progress Notes Filed: 07/25/2022 12:42 PM Note Text: . [facility] [place] Note Patient name: Haydee Bustamante PCP: Claudine Durán MD CC: Follow-up chest CT HPI: Haydee Bustamante 77 year old female former 10 pack year smoker with PMH significant for RA (MTX, Humira), HTN, h/o disseminated Histoplasmosis, bronchiectasis, , VTE, pulmonary nodules, who presents for follow-up. Current inhaled therapy with Symbicort and Spiriva. At [facility] with pr, she was a new patient to pr formerly followed by Dr. Andujar. She had [...] DATE OF EXAM: Jul 20 2022 9:22AM [facility] 0541 - CT CHEST WO IVCON / [...] abdomen within the limits of noncontrast technique.. Director Executive Communications (topogram) images: IVC filter present IMPRESSION: Findings [...] prominent, not pathologi (more content not included)... [facility] 07-20-2022 Note HNO ID: [id number] Author: RT Edwin(R) Service: ? Author Type: Service Order Dispatcher Type: Progress Notes Filed: 07/20/2022 9:35 AM [...] RT Maryann(R) July 20, 2022 9:35 AM [facility] 07-20-2022 History of Presen t illness Narrative Images from the original note were not included. . [facility] [place] Note Patient name: Haydee Bustamante PCP: Claudine Durán MD CC: Follow-up chest CT HPI: Haydee Bustamante 77 year old female former 10 pack year smoker with PMH significant for RA (MTX, Humira), HTN, h/o disseminated Histoplasmosis, bronchiectasis, , VTE, pulmonary nodules, who presents for follow-up. Current inhaled therapy with Symbicort and Spiriva. At [facility] with me, she was a new [...] DATE OF EXAM: Jul 20 2022 9:22AM [facility] 0541 - CT CHEST WO IVCON / [...] abdomen within the limits of noncontrast technique.. Director Executive Communications (topogram) images: IVC filter present IMPRESSION: Findings [...] hemorrhage) Diverticulosis DVT, recurrent, lower extremity, acute ([facility]) 12/10/2014 Esophageal reflux Hiatal hernia 02/25/2018 Hypertension Lung nodule Personal history of unspecified urinary disorder 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 rheumatoid factor ([facility]) 03/07/2015 Dr. Hurley ([facility]) Unspecified hemorrhoids without mention of complication [...] hours as needed.^Disp: 1 Each^Rfl: 2 vit A,C,J-Ymkt-Sepzfj (OCUVITE PRESERVISION) 2,148 mcg-113 mg-45 mg-17.4mg tab^Take [...] fluticasone (FLONASE) 50 mcg/actuation nasal spray^Use 1 [place] in each nostril once daily.^Disp: 3 Each^Rfl: [...] SPINE FUSN,POST INTERBODY [address] [facility]. Diskectomy and laminectomy PAST SURGICAL [...] her underlying bronchiectasis Florence Terry MD [facility] [place] documented in this encounter [facility] 07-20-2022 History of Presen t illness [...] 2022 9:35 AM documented in this encounter [facility] 07-13-2022 Note HNO ID: [id number] Author: Flex Means RN Service: ? Author Type: ? Type: Progress Notes Filed: 07/13/2022 4:39 PM Note Text: pcp agrees with information PATIENT NOTIFIED OF INFORMATION [facility] 07-13-2022 Note HNO ID: [id number] Author: Flex Means RN Service: ? Author Type: ? Type: Progress Notes Filed: 07/13/2022 4:39 PM Note Text: patient had inr completed at [facility] patients inr is 1.5 (patients inr [...] 2 week inr follow up inr 07/27/22 [facility] 07-11-2022 Note HNO ID: [id number] Author: Jimbo Carias APRN.ROLLER MAKER Service: ? Author Type: Nurse Specialist Type: [...] and COPD. 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 States that project admin discussed possible amputation of toe but would prefer not to go that route. May see an alternate project admin at [facility]. Weight: stable Exercise: walking miles most days, feeling well with this . 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 Noted macular degeneration, a Raynaud's 2 daily advised 1 year follow-up with eye doctor. Since last seen she has gone to [facility], seen by Dr. Roque Zacarias 06/26/2022 for RA, osteoporosis, degenerative disc disease, arthritis of foot, osteoarthritis of bilateral hands. 3 mo follow up and Dexa advised. Has new shoes from Rani Cowart at [facility] / [employer]. Notes foot surgery and healed foot wound. RA: controlled currently, following with engineer first assistant. Last seen by Dr. Ambriz 07/2021 for [...] ALLERGIES Allergen Reactions Penicillins Hives Medications vit A,C,O-Nmmf-Ubapqj (OCUVITE PRESERVISION) 2,148 mcg-113 mg-45 mg-17.4mg tabTake [...] fluticasone (FLONASE) 50 mcg/actuation nasal sprayUse 1 [place] in each nostril once daily.Disp: 3 EachRfl: 3 tiotropium bromide (SPIRIVA RESPIMAT) 2.5 mcg/actuation inhalerInhale 2 Puffs as instructed once daily. Inhale two puffs once daily.Disp: 3 EachRfl: 3 Irbesartan-hydroCHLOROthiazide 150-12.5 mg per tabletTake 1 tablet by mouth once daily.Disp: 90 tabletRfl: 3 SYMBICORT 160-4.5 mcg/actuation inhalerUSE 2 INHALATIONS TWICE A DAY INSTRUCT (more content not included)... [facility] 06-29-2022 Note HNO ID: [id number] Author: Jimbo Carias APRN.ROLLER MAKER Service: ? Author Type: Nurse Specialist Type: Progress Notes Filed: 06/29/2022 2:16 PM Note Text: Continue with Coumadin dosing unchanged and check INR in 2 weeks [facility] 06-29-2022 History of Presen t illness Narrative Continue with Coumadin dosing unchanged and check INR in 2 weeks patient had inr completed at [facility] patients inr is 2.1 (patients inr [...] since dose change documented in this encounter [facility] 06-29-2022 Note HNO ID: [id number] Author: Flex Means RN Service: ? Author Type: ? Type: Progress Notes Filed: 06/29/2022 2:16 PM Note Text: patient had inr completed at [facility] patients inr is 2.1 (patients inr [...] the first normal reading since dose change [facility] 06-22-2022 Note HNO ID: [id number] Author: Maritza Pretson LPN Service: ? Author Type: ? Type: Progress Notes Filed: 06/22/2022 3:37 PM Note Text: Patient notified of change in dosage, verbalized understanding. Anticoag Tracker updated. Maritza Preston LPN [facility] 06-22-2022 Note HNO ID: [id number] Author: Jimbo Carias APRN.ROLLER MAKER Service: ? Author Type: Nurse Specialist Type: Progress Notes Filed: 06/22/2022 3:37 PM Note Text: Coumadin 5 mg today and tomorrow then 5 mg Sunday and 7.5 mg all other days. Recheck INR in 1 week [facility] 06-22-2022 Note HNO ID: [id number] Author: Flex Means RN Service: ? Author Type: ? Type: Progress Notes Filed: 06/22/2022 3:37 PM Note Text: patient had inr completed at [facility] patients inr is 2.9 (patients [...] 1 week follow up inr on 06/29/22 [facility] 06-09-2022 Note HNO ID: [id number] Author: Flex Means RN Service: ? Author Type: ? Type: Progress Notes Filed: 06/09/2022 4:06 PM Note Text: pcp agrees [facility] 06-09-2022 Note HNO ID: [id number] Author: Flex Means RN Service: ? Author Type: ? Type: Progress Notes Filed: 06/09/2022 4:06 PM Note Text: patient had inr completed at [facility] patients inr is 1.6 (patients [...] INR since coumadin is just slight under [facility] 05-23-2022 Miscellaneous Notes Noted Message left [...] rescheduled. Lani from Dr Rani Cowart's office [facility] states they received a signed clearance from [...] is scheduled for surgery tomorrow morning. PH: [phone] X [phone] FAX: [phone]. Maricarmen Jacobs LPN documented in this encounter [facility] 05-04-2022 Note HNO ID: [id number] Author: Jimbo Carias APRN.ROLLER MAKER Service: ? Author Type: Nurse Specialist Type: Progress Notes Filed: 05/04/2022 3:52 PM Note Text: Continue Coumadin dose unchanged and check INR in 1 month [facility] 05-04-2022 History of Presen t illness Narrative Continue Coumadin dose unchanged and check INR in 1 month patient had inr completed at [facility] patients inr is 2.0 (patients inr [...] follow up INR. documented in this encounter [facility] 05-04-2022 Note HNO ID: [id number] Author: Flex Means RN Service: ? Author Type: ? Type: Progress Notes Filed: 05/04/2022 3:52 PM Note Text: patient had inr completed at [facility] patients inr is 2.0 (patients inr [...] 1 month (06/08/22) for follow up INR. [facility] 04-06-2022 Note HNO ID: [id number] Author: Jimbo Carias APRN.CNS Service: ? Author Type: Nurse Specialist Type: Progress Notes Filed: 04/06/2022 3:05 PM Note Text: Continue with Coumadin dose unchanged and check INR in 4 weeks [facility] 04-06-2022 History of Presen t illness Narrative Continue with Coumadin dose unchanged and check INR in 4 weeks patient had inr completed at [facility] patients inr is 2.0 (patients inr [...] follow up INR. documented in this encounter [facility] 04-06-2022 Note HNO ID: [id number] Author: Flex Means RN Service: ? Author Type: ? Type: Progress Notes Filed: 04/06/2022 3:05 PM Note Text: patient had inr completed at [facility] patients inr is 2.0 (patients inr [...] 4 weeks (05/04/22) for follow up INR. [facility] 03-30-2022 Note HNO ID: [id number] Author: Flex Means RN Service: ? Author Type: ? Type: Progress Notes Filed: 03/30/2022 3:57 PM Note Text: PATIENT NOTIFIED OF INFORMATION via detailed message [facility] 03-30-2022 History of Presen t illness Narrative PATIENT NOTIFIED OF INFORMATION via detailed message Coumadin 5 mg today then resume previous dosing -5 mg Gil Sunday and 7.5 mg all other days and check INR in 1 week patient had inr completed at [facility] patients inr is 2.3 (patients inr [...] inr on 04/06/22 documented in this encounter [facility] 03-30-2022 Note HNO ID: [id number] Author: Jimbo Carias APRN.ROLLER MAKER Service: ? Author Type: Nurse Specialist Type: Progress Notes Filed: 03/30/2022 3:57 PM Note Text: Coumadin 5 mg today then resume previous dosing -5 mg Sunday and 7.5 mg all other days and check INR in 1 week [facility] 03-30-2022 Note HNO ID: [id number] Author: Flex Means RN Service: ? Author Type: ? Type: Progress Notes Filed: 03/30/2022 3:57 PM Note Text: patient had inr completed at [facility] patients inr is 2.3 (patients inr [...] 1 week follow up inr on 04/06/22 [facility] 03-13-2022 History of Presen t illness Narrative This note was created using [employer]. Subjective Haydee Bustamante is a 76 year old female. Patient presents with: 4 month follow up SUBJECTIVE: Haydee Bustamante is a 76 year old year old lady here today for 4 month follow up appointment for review of medical conditions. Following with eye doctor. Has early macular degeneration. Given glasses for it. Having foot surgery at [facility] May 19. Told will be extensive--straighten all [...] Anemia Bone marrow involvement with histoplasmosis Bronchiectasis ([facility]) COPD (chronic obstructive pulmonary disease) (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 Diverticulosis of colon (without mention of hemorrhage) Diverticulosis DVT, recurrent, lower extremity, acute ([facility]) 12/10/2014 Esophageal reflux Hiatal hernia 02/25/2018 Hypertension Personal history of unspecified urinary disorder 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 rheumatoid factor ([facility]) 03/07/2015 Dr. Hurley ([facility]) Unspecified hemorrhoids without mention of complication Hemorrhoids Current Outpatient Medications Medication Sig naproxen (NAPROSYN) 500 mg tablet Take 1 tablet by mouth twice daily as needed. Take with food gabapentin (NEURONTIN) 300 mg capsule Take 1 capsule by mouth twice daily. fluticasone (FLONASE) 50 mcg/actuation nasal spray Use 1 [place] in each nostril once daily. tiotropium bromide [...] and as needed for preop eval for project admin. Noted that has not needed bridging Lovenox when has been off coumadin. Continue present management with anticoagulation. .BP controlled. Continue present management. Claudine Durán MD documented in this encounter [facility] 02-02-2022 History of Presen t illness Narrative Continue with Coumadin dose unchanged check INR in 4 weeks patient had inr completed at [facility] patients inr is 2.0 (patients inr [...] follow up INR. documented in this encounter [facility] 01-17-2022 Miscellaneous Notes Last office visit: 11/10/21 Next appointment scheduled: 03/13/22 Patient phones requesting refills as follows: Requested Prescriptions Pending Prescriptions Disp Refills naproxen (NAPROSYN) 500 mg tablet 120 tablet 3 Sig: Take 1 tablet by mouth twice daily as needed. Take with food Please review and advise. Geni Cintron LPN documented in this encounter [facility] 01-11-2022 Miscellaneous Notes Spoke with pt and information listed below given. Pt verbalizes understanding. She will get the labs when they are due. Lynne Mann LPN Patient gets labs done for engineer first assistant so labs are up to date The [...] Lynne Mann LPN documented in this encounter [facility] 01-05-2022 History of Presen t illness Narrative per dr haynes he agrees with information patient had inr completed at [facility] patients inr is 2.2 (patients inr [...] follow up INR. documented in this encounter [facility] 12-22-2021 History of Presen t illness Narrative PATIENT NOTIFIED OF INFORMATION Recommend Coumadin 7.5 mg today. Then resume usual dosing 5 mg Sunday and 7.5 mg all other days. Check INR 2 weeks patient had inr completed at [facility] patients inr is 1.4 (patients inr [...] inr on 01/05/22 documented in this encounter [facility] 11-29-2021 History of Presen t illness Narrative Images from the original note were not included. . [facility] [place] Note Patient name: Haydee Bustamante PCP: Claudine Durán MD CC: Follow-up lung disease HPI: Haydee Bustamante 76 year old female former [id number] smoker having quit in 1989 with PMH [...] Bronchiectasis (HCC) COPD (chronic obstructive pulmonary disease) (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 Diverticulosis of colon (without mention of hemorrhage) Diverticulosis DVT, recurrent, lower extremity, acute ([facility]) 12/10/2014 Esophageal reflux Hiatal hernia 02/25/2018 Hypertension Personal history of unspecified urinary disorder 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 rheumatoid factor ([facility]) 03/07/2015 Dr. Hurley ([facility]) Unspecified hemorrhoids without mention of complication Hemorrhoids ALLERGIES Allergen Reactions Penicillins Hives fluticasone (FLONASE) 50 mcg/actuation nasal spray^Use 1 [place] in each nostril once daily.^Disp: 3 Each^Rfl: [...] SPINE FUSN,POST INTERBODY [address] [facility]. Diskectomy and laminectomy PAST SURGICAL [...] treatment per rheumatology Florence Terry MD [facility] [place] documented in this encounter [facility] 11-24-2021 Miscellaneous Notes error documented in this encounter [facility] 11-10-2021 History of Presen t illness [...] and COPD. 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 States that project admin discussed possible amputation of toe but would prefer not to go that route. May see an alternate project admin at [facility]. States took blood pressure medication today. Continues [...] 12 mos RA: controlled currently, following with engineer first assistant. OAC: no bleeding difficulties. Occasional bruising. Spiriva [...] fluticasone (FLONASE) 50 mcg/actuation nasal spray^Use 1 [place] in each nostril once daily.^Disp: 3 Bottle^Rfl: 3 (Patient not taking: No sig reported) PAST MEDICAL HISTORY Diagnosis Date Blood dyscrasia Disseminated histoplasmosis Colitis, immunosuppression, 01/2018. Diverticulosis of colon (without mention of hemorrhage) Diverticulosis DVT, recurrent, lower extremity, acute (HCC) 12/10/2014 Esophageal reflux Hiatal hernia 02/25/2018 Hypertension Personal history of unspecified urinary disorder 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 rheumatoid factor ([facility]) 03/07/2015 Dr. Hurley ([facility]) Unspecified hemorrhoids without mention of complication [...] Abs Lymph 1.00 - 4.00 k/uL 1.64 [place]% % 8.0 Abs [place] <0.87 k/uL 0.60 Eosin% % 2.7 Abs [...] (HCC) - ICD9: 496, ICD10: J44.9 - [id number] BL 3. Encounter for immunization - ICD9: [...] 746.3, 746.4, ICD10: Q23.0, Q23.1 Jimbo Carias, C++ PROFESSOR.ROLLER MAKER] Jimbo Carias, C++ PROFESSOR.ROLLER MAKER Medical Decision Making: Problems: Moderate: 1+ chronic illnesses with change and 2+ stable chronic illnesses Risk: Moderate: Drug management Medical Decision Making Level: 4 - Moderate documented in this encounter [facility] 11-09-2021 Miscellaneous Notes Filed order patients orders for coumadin clinic inr's has at this time. new order has been pended for approval if possible so that patient can continue to get inr's completed thru the coumadin clinic. coumadin clinic nurse only needs called if order can not be approved. documented in this encounter [facility] 11-08-2021 Miscellaneous Notes Patient has been [...] Ruby Tobin RN documented in this encounter [facility] 11-01-2021 Instructions Yonas Louise - 11/01/2021 9:29 AM EDT Your ulceration is now healed Ok to continue with padding as needed F/u as needed documented in this encounter [facility] 11-01-2021 History of Presen t illness [...] hemorrhage) Diverticulosis DVT, recurrent, lower extremity, acute ([facility]) 12/10/2014 Esophageal reflux Hiatal hernia 02/25/2018 Hypertension Personal history of unspecified urinary disorder 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 rheumatoid factor ([facility]) 03/07/2015 Dr. Hurley ([facility]) Unspecified hemorrhoids without mention of complication [...] (FLONASE) 50 mcg/actuation nasal spray Use 1 [place] in each nostril once daily. (Patient not [...] SPINE FUSN,POST INTERBODY [address] [facility]. Diskectomy and laminectomy PAST SURGICAL [...] stopped wrapping it. documented in this encounter [facility] 10-27-2021 History of Presen t illness Narrative patient had inr completed at [facility] patients inr is 1.6 (patients inr [...] follow up INR. documented in this encounter [facility] 10-18-2021 Instructions Yonas Louise - 10/18/2021 9:[address] aquacel on ulceration daily Place lambs wool or guaze horizontally between the interspace Secure lambs wool or guaze with blanca wrap or tape Wear surgical shoe or wide sneaker or even sandal to avoid pressure on 5th toe documented in this encounter [facility] 10-18-2021 History of Presen t illness [...] hemorrhage) Diverticulosis DVT, recurrent, lower extremity, acute ([facility]) 12/10/2014 Esophageal reflux Hiatal hernia 02/25/2018 Hypertension Personal history of unspecified urinary disorder 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 rheumatoid factor ([facility]) 03/07/2015 Dr. Hurley ([facility]) Unspecified hemorrhoids without mention of complication [...] (FLONASE) 50 mcg/actuation nasal spray Use 1 [place] in each nostril once daily. (Patient not [...] SPINE FUSN,POST INTERBODY [address] [facility]. Diskectomy and laminectomy PAST SURGICAL [...] Louise DPM Podiatry [address] [facility] [address] Dept: [phone] Dept AMB ROOMING INTAKE FLOWSHEET DATA Pain Pain Level: 4 Pain Location: Toe Description: Sharp, Raw, Sore Duration Amount of Time: 2 Duration Units: Months Frequency: Intermittent Intervention/Comfort measure: Reposition, Relaxation Patient presents with: Right Foot - Established Patient, Follow Up, Pain, Blister Imelda Quijano LPN documented in this encounter [facility] 10-18-2021 Miscellaneous Notes Pt only has [...] Muna Porter RN documented in this encounter [facility] 10-12-2021 History of Presen t illness [...] 2021 10:06 AM documented in this encounter [facility] 10-12-2021 History of Presen t illness [...] 2021 9:56 AM documented in this encounter [facility] 09-29-2021 History of Presen t illness Narrative Continue current Coumadin dose unchanged and check INR in 4 weeks patient had inr completed at [facility] patients inr is 2.0 (patients inr [...] follow up INR. documented in this encounter [facility] 09-20-2021 Instructions Jimbo Carias APRN.TYLOR - 09/20/2021 1:55 PM EDT Keep your toe clean dry and . Was with soap and water daily, dry thoroughly. Use lambswool between toes. Avoid tight shoes documented in this encounter [facility] 09-20-2021 History of Presen t illness [...] and COPD. 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 Histoplasmosis: notes resolved symptoms. OAC: no bleeding difficulties. Occasional bruising. Spiriva and intermittent albuterol has helped with cough. Presents today for foot lesion. She notes she is been wearing tight shoes for a [employer] production at [facility] for about a month. She notes [...] (FLONASE) 50 mcg/actuation nasal spray Use 1 [place] in each nostril once daily. econazole (SPECTAZOLE) [...] positive rheumatoid factor (HCC) 03/07/2015 Dr. Hurley ([facility]) Unspecified hemorrhoids without mention of complication [...] Abs Lymph 1.00 - 4.00 k/uL 1.64 [place]% % 8.0 Abs [place] <0.87 k/uL 0.60 Eosin% % 2.7 Abs [...] us know if not improving. Jimbo Carias, C++ PROFESSOR.ROLLER MAKER Medical Decision Making: Problems: Low: Acute, uncomplicated illness or injury Risk: Moderate: Drug management Medical Decision Making Level: 3 - Low documented in this encounter [facility] 09-05-2021 Miscellaneous Notes September 05, 2021 PID: [id number] Haydee Bustamante [address] [place] [id number] Dear Ms. Bustamante, Your recent breast imaging exam on 09/05/2021 showed a possible finding that requires additional imaging studies for a complete evaluation. Most such findings are probably benign (not cancer). If you have a healthcare provider who ordered/prescribed your screening mammogram: Please call [phone] or [phone]: [phone] to schedule an appointment for your additional [...] and reports are kept on file at [facility] as part of your permanent medical record, and are available for your continuing care. Thank you for allowing us to help in meeting your health care needs. Sincerely, Dr. Bell Interpreting Radiologist [facility] (Additional imaging) documented in this encounter [facility] 09-05-2021 History of Presen t illness [...] 2021 9:28 AM documented in this encounter [facility] 08-23-2021 History of Presen t illness Narrative per verbal order by environmental program manager provider dr rowell she agrees with information patient had inr completed at [facility] patients inr is 2.2 (patients inr [...] follow up INR. documented in this encounter [facility] 08-12-2021 History of Presen t illness Narrative Images from the original note were not included. [facility] SECTION OF [facility]IOLOGY [facility] OUTPATIENT VISIT DATE August 12, 2021 PRIMARY CARE PHYSICIAN: Claudine Durán [address] [place] [address] HISTORY OF PRESENT ILLNESS: Ms. Bustamante is a 76 year old female. The patient returns for follow-up due to history of known bicuspid aortic valve stenosis. Previous stenosis has been evaluation as showed this to be mild. Additional history includes hypertension. 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 She is planning on doing [employer] again this summer. She denies chest discomfort, [...] involving multiple sites with positive rheumatoid factor ([facility]) 03/07/2015 Dr. Hurley ([facility]) Unspecified hemorrhoids without mention of complication [...] SPINE FUSN,POST INTERBODY [address] [facility]. Diskectomy and laminectomy PAST SURGICAL [...] (FLONASE) 50 mcg/actuation nasal spray Use 1 [place] in each nostril once daily. econazole (SPECTAZOLE) [...] Department of Medicine and Division of Cardiology, [facility] Body Finishertransfusion aide [facility] Body Finisher of Congestive Heart Failure Clinic [facility] Cardiology Office Body Finisher [facility] Staff Sewing Machines Salesperson, Les Pierce Department of Cardiovascular Medicine/Heart and [facility] [place], [facility] Clinical Leather Stretcher Profressor of Medicine, [facility] Please note: This note has been produced using speech recognition software and may contain errors related to that system including madelyn, punctuation, spelling, words, gender and phrases that may be inappropriate. documented in this encounter [facility] 07-29-2021 Miscellaneous Notes Pharmacy faxed requesting the following refill. Pending Prescriptions Disp Refills SYMBICORT 160 MCG-4.5 MCG/ACTUATION HFA AEROSOL INHALER 30.6 g 4 Sig: USE 2 INHALATIONS TWICE A DAY INSTRUCTED YULIANA: Yes Patient last appointment: [address] [place] [address] Andujar Patient Phone numbers: [phone] (home) Request is for script(s) to be escript to pharmacy. Nahomy Mercado documented in this encounter [facility] 07-25-2021 History of Presen t illness Narrative pcp agrees with information patient had inr completed at [facility] patients inr is 1.8 (patients inr [...] follow up INR. documented in this encounter [facility] 07-11-2021 History of Presen t illness Narrative This note was created using InTouch Technologyriter. Subjective Haydee Bustamante is a 76 year [...] toe surgery for now--has show. 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 Noted fell when missed top step. [...] positive rheumatoid factor (HCC) 03/07/2015 Dr. Hurley ([facility]) Unspecified hemorrhoids without mention of complication [...] (FLONASE) 50 mcg/actuation nasal spray Use 1 [place] in each nostril once daily. econazole (SPECTAZOLE) [...] Abs Lymph 1.00 - 4.00 k/uL 1.64 [place]% % 8.0 Abs [place] <0.87 k/uL 0.60 Eosin% % 2.7 Abs [...] vaccine - ICD9: V04.89, ICD10: Z23 - Condomani-morphCARD COVID-19 VACCINE, AGE 12+ YR (ARIAS TOP) 6. COPD without exacerbation (HCC) - ICD9: 496, ICD10: J44.9 Continue present management. Discussed Dr. Andujar's instructions to use albuterol before activity that causes coughing 7. Bronchiectasis without complication (HCC) - ICD9: 494.0, ICD10: J47.9 As noted above. Fall discussed. Arthritis discussed. Claudine Durán MD documented in this encounter [facility] 06-30-2021 History of Presen t illness Narrative inSight CDM Engagement Provider Action/FYI: Spk with Pt she denies new or worsening COPD symptoms or needs. Pt plans to have her Covid Booster at upcoming Appt with 07/11/21 Contact Made with Patient: Yes Patient identified by name and . Discussed care with patient Shante venegas name is Katarzyna Malcolm RN your Senior Business Development Analyst from Claudine Durán MD office at the [facility]. I am reaching out today because [...] Bustamante. This is Katarzyna Malcolm RN your Senior Business Development Analyst from the [facility]. I am calling to check in with you concerning the MyChart questionnaire you have been receiving from me. I will call you again tomorrow and am looking forward to speaking with you. (Senior Business Development Analyst enters next day in next patient outreach ) Katarzyna Malcolm RN June 29, 2021 3:31 PM documented in this encounter [facility] 06-09-2021 History of Presen t illness Narrative per environmental program manager provider dr garza patient is to continue same dose PATIENT NOTIFIED OF INFORMATION patient had inr completed at [facility] patients inr is 1.6 (patients inr [...] follow up INR. documented in this encounter [facility] 06-06-2021 Miscellaneous Notes GEREMIAS: 03/14/2021 Last [...] Sergey Ramirez Ma documented in this encounter [facility] 2021 Instructions Julio Andujar MD - [...] I am retiring from the staff of [facility] and the practice of Medicine on [...] Johanna Benites PA-C. documented in this encounter [facility] 2021 History of Presen t illness Narrative [facility] [place], 2021: Name: Haydee Bustamante : 1945 INTERVAL [...] months, sooner if needed. [facility] [place] [facility] [address] [place] [address] P: [phone] F: [phone] [email or web address] documented in this encounter [facility] 05-26-2021 History of Presen t illness Narrative environmental program manager provider agrees with information patient had inr completed at [facility] patients inr is 1.6 (patients inr [...] just slightly low documented in this encounter [facility] 05-20-2021 History of Presen t illness [...] 2021 2:45 PM documented in this encounter [facility] 03-14-2021 History of Presen t illness Narrative This note was created using Appolicious. Subjective Haydee Bustamante is a 75 year [...] (FLONASE) 50 mcg/actuation nasal spray Use 1 [place] in each nostril once daily. potassium chloride [...] 3. Cough R05.9 4. Bronchiectasis without complication ([facility]) J47.9 5. Gastroesophageal reflux disease without esophagitis K21.9 6. Aortic stenosis with bicuspid valve Q23.0 Q23.1 7. 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 rheumatoid factor ([facility]) M05.79 ASSESSMENT/PLAN: 1. Essential hypertension - ICD9: 401.9, ICD10: I10 (primary diagnosis) - good control - Follows with Dr. Ambriz ([facility] cardiology) - Continue current medication(s) - [...] 714.0, ICD10: M05.79 Stable on meds through [facility]--Dr. Hurley Gets labs through his office. Lipid ordered. I spent a total of at least 30 minutes on the date of the service which included [id number] patient care, completing clinical documentation, obtaining and/or reviewing separately obtained history, performing a medically appropriate examination, counseling and educating the patient/family/caregiver and ordering medications, tests, or procedures. Claudine Durán MD documented in this encounter [facility] documented as of this encounter (statuses as of 05/20/2021) [facility] History of Past illness Narrative* Problem [...] of this encounter (statuses as of 05/22/2021) [facility] History of Past illness Narrative* Problem [...] of this encounter (statuses as of 05/26/2021) [facility] History of Past illness Narrative* Problem [...] of this encounter (statuses as of 06/06/2021) [facility] History of Past illness Narrative* Problem [...] of this encounter (statuses as of 06/09/2021) [facility] History of Past illness Narrative* Problem [...] of this encounter (statuses as of 06/30/2021) [facility] of Past illness Narrative* Problem [...] of this encounter (statuses as of 07/25/2021) [facility] of Past illness Narrative* Problem [...] of this encounter (statuses as of 08/01/2021) [facility] of Past illness Narrative* Problem [...] of this encounter (statuses as of 08/12/2021) [facility] of Past illness Narrative* Problem [...] of this encounter (statuses as of 08/23/2021) [facility] of Past illness Narrative* Problem [...] of this encounter (statuses as of 09/06/2021) [facility] of Past illness Narrative* Problem [...] of this encounter (statuses as of 09/06/2021) [facility] of Past illness Narrative* Problem [...] of this encounter (statuses as of 09/07/2021) [facility] of Past illness Narrative* Problem [...] of this encounter (statuses as of 09/20/2021) [facility] of Past illness Narrative* Problem [...] of this encounter (statuses as of 09/29/2021) [facility] of Past illness Narrative* Problem [...] of this encounter (statuses as of 10/13/2021) [facility] of Past illness Narrative* Problem [...] of this encounter (statuses as of 10/13/2021) [facility] of Past illness Narrative* Problem [...] of this encounter (statuses as of 10/18/2021) [facility] of Past illness Narrative* Problem [...] of this encounter (statuses as of 10/18/2021) [facility] of Past illness Narrative* Problem [...] of this encounter (statuses as of 10/19/2021) [facility] illness Narrative* Problem [...] of this encounter (statuses as of 10/27/2021) [facility] History of Past illness Narrative* Problem [...] of this encounter (statuses as of 11/01/2021) [facility] History of Past illness Narrative* Problem [...] of this encounter (statuses as of 11/08/2021) [facility] History of Past illness Narrative* Problem [...] of this encounter (statuses as of 11/10/2021) [facility] History of Past illness Narrative* Problem [...] of this encounter (statuses as of 11/10/2021) [facility] History of Past illness Narrative* Problem [...] of this encounter (statuses as of 11/29/2021) [facility] History of Past illness Narrative* Problem [...] of this encounter (statuses as of 12/04/2021) [facility] History of Past illness Narrative* Problem [...] of this encounter (statuses as of 12/22/2021) [facility] History of Past illness Narrative* Problem [...] of this encounter (statuses as of 12/27/2021) [facility] History of Past illness Narrative* Problem [...] of this encounter (statuses as of 01/05/2022) [facility] History of Past illness Narrative* Problem [...] of this encounter (statuses as of 01/11/2022) [facility] History of Past illness Narrative* Problem [...] of this encounter (statuses as of 01/17/2022) [facility] History of Past illness Narrative* Problem [...] of this encounter (statuses as of 01/17/2022) [facility] History of Past illness Narrative* Problem [...] of this encounter (statuses as of 02/02/2022) [facility] History of Past illness Narrative* Problem [...] of this encounter (statuses as of 02/22/2022) [facility] History of Past illness Narrative* Problem [...] of this encounter (statuses as of 02/24/2022) [facility] History of Past illness Narrative* Problem [...] of this encounter (statuses as of 03/14/2022) [facility] History of Past illness Narrative* Problem [...] of this encounter (statuses as of 03/30/2022) [facility] History of Past illness Narrative* Problem [...] of this encounter (statuses as of 04/06/2022) [facility] History of Past illness Narrative* Problem [...] of this encounter (statuses as of 04/21/2022) [facility] History of Past illness Narrative* Problem [...] of this encounter (statuses as of 05/04/2022) [facility] History of Past illness Narrative* Problem [...] of this encounter (statuses as of 05/24/2022) [facility] History of Past illness Narrative* Problem [...] of this encounter (statuses as of 06/01/2022) [facility] History of Past illness Narrative* Problem [...] of this encounter (statuses as of 06/29/2022) [facility] History of Past illness Narrative* Problem [...] of this encounter (statuses as of 07/24/2022) [facility] History of Past illness Narrative* Problem [...] of this encounter (statuses as of 07/24/2022) [facility] History of Past illness Narrative* Problem [...] of this encounter (statuses as of 08/13/2022) [facility] History of Past illness Narrative* Problem [...] of this encounter (statuses as of 08/15/2022) [facility] History of Past illness Narrative* Problem [...] of this encounter (statuses as of 09/08/2022) [facility] History of Past illness Narrative* Problem [...] of this encounter (statuses as of 09/11/2022) [facility] History of Past illness Narrative* Problem [...] of this encounter (statuses as of 09/15/2022) [facility] History of Past illness Narrative* Problem [...] of this encounter (statuses as of 09/26/2022) [facility] History of Past illness Narrative* Problem [...] of this encounter (statuses as of 10/10/2022) [facility] History of Past illness Narrative* Problem [...] of this encounter (statuses as of 10/13/2022) [facility] History of Past illness Narrative* Problem [...] of this encounter (statuses as of 10/27/2022) [facility] History of Past illness Narrative* Problem [...] of this encounter (statuses as of 10/27/2022) [facility] History of Past illness Narrative* Problem [...] of this encounter (statuses as of 10/31/2022) [facility] History of Past illness Narrative* Problem [...] of this encounter (statuses as of 10/31/2022) [facility] History of Past illness Narrative* Problem [...] of this encounter (statuses as of 11/02/2022) [facility] History of Past illness Narrative* Problem [...] of this encounter (statuses as of 11/10/2022) [facility] History of Past illness Narrative* Problem [...] of this encounter (statuses as of 11/23/2022) [facility] History of Past illness Narrative* Problem [...] of this encounter (statuses as of 12/07/2022) [facility] History of Past illness Narrative* Problem [...] of this encounter (statuses as of 12/07/2022) [facility] History of Past illness Narrative* Problem [...] of this encounter (statuses as of 12/15/2022) [facility] History of Past illness Narrative* Problem [...] of this encounter (statuses as of 12/20/2022) [facility] History of Past illness Narrative* Problem [...] of this encounter (statuses as of 12/24/2022) [facility] History of Past illness Narrative* Problem [...] of this encounter (statuses as of 12/24/2022) [facility] History of Past illness Narrative* Problem [...] of this encounter (statuses as of 01/04/2023) [facility] History of Past illness Narrative* Problem [...] of this encounter (statuses as of 01/05/2023) [facility] History of Past illness Narrative* Problem [...] of this encounter (statuses as of 01/10/2023) [facility] History of Past illness Narrative* Problem [...] of this encounter (statuses as of 01/18/2023) [facility] History of Past illness Narrative* Problem [...] of this encounter (statuses as of 01/24/2023) [facility] History of Past illness Narrative* Problem [...] of this encounter (statuses as of 02/03/2023) [facility] History of Past illness Narrative* Problem [...] of this encounter (statuses as of 02/08/2023) [facility] History of Past illness Narrative* Problem [...] of this encounter (statuses as of 03/24/2023) [facility] Diagnosis Screening mammogram, encounter for- Primary documented in this [facility] Diagnosis Essential hypertension- Primary Unspecified essential hypertension History of COVID-19 Cough Bronchiectasis without complication (HCC) Bronchiectasis without acute exacerbation Gastroesophageal reflux disease without esophagitis Esophageal reflux Aortic stenosis with bicuspid valve 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 rheumatoid factor (HCC) [facility] Diagnosis Embolism and thrombosis (HCC) Embolism and thrombosis of unspecified site [facility] Diagnosis Moderate COPD (chronic obstructive pulmonary disease) (HCC)- Primary Chronic airway obstruction, not elsewhere classified Bronchiectasis without complication (HCC) Bronchiectasis without acute exacerbation Centrilobular emphysema (HCC) Other [facility]se[facility] Cough due to bronchospasm Acute bronchospasm [facility] Diagnosis Embolism and thrombosis (HCC) Embolism and thrombosis of unspecified site [facility] Diagnosis Personal history of DVT (deep vein thrombosis)- Primary Personal history of venous thrombosis and embolism [facility] Diagnosis Aortic stenosis with bicuspid valve- Primary Essential hypertension Unspecified essential hypertension [facility] Diagnosis Personal history of DVT (deep vein thrombosis)- Primary Personal history of venous thrombosis and embolism [facility] Diagnosis Encounter for screening mammogram for breast cancer [facility] Diagnosis Gastroesophageal reflux disease without esophagitis- Primary Esophageal reflux Other viral warts Elevated LDL cholesterol level Pure hypercholesterolemia Essential hypertension Unspecified essential hypertension Need for COVID-19 vaccine COPD without exacerbation (HCC) Bronchiectasis without complication (HCC) Bronchiectasis without acute exacerbation [facility] Diagnosis Toe infection- Primary Unspecified local infection of skin and subcutaneous tissue Sinobronchitis Unspecified sinusitis (chronic) [facility] Personal history of DVT (deep vein thrombosis)- Primary Personal history of venous thrombosis and embolism [facility] Diagnosis Abnormal mammogram Abnormal mammogram, unspecified [facility] Diagnosis Ulcer of toe of left foot, limited to breakdown of skin (HCC)- Primary Hammer toe of left foot Onychodystrophy Other specified disease of nail [facility] Diagnosis Embolism and thrombosis (HCC) Embolism and thrombosis of unspecified site [facility] Diagnosis Ulcer of toe of left foot, limited to breakdown of skin (HCC) Hammer toe of left foot [facility] Diagnosis Ulcer of toe of left foot, limited to breakdown of skin (HCC)- Primary Hammer toe of left foot Hallux rigidus of left foot Hallux rigidus [facility] Diagnosis COPD without exacerbation (HCC) Essential hypertension Unspecified essential hypertension [facility] Diagnosis Essential hypertension- Primary Unspecified essential hypertension Chronic obstructive pulmonary disease, unspecified COPD type (HCC) Encounter for immunization Need for other specified prophylactic vaccination against single bacterial disease Gastroesophageal reflux disease without esophagitis Esophageal reflux Bronchiectasis without complication (HCC) Bronchiectasis without acute exacerbation Aortic stenosis with bicuspid valve [facility] Diagnosis Lung nodules- Primary Other nonspecific abnormal finding of lung field Bronchiectasis without complication (HCC) Bronchiectasis without acute exacerbation Chronic obstructive pulmonary disease, unspecified COPD type (HCC) 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 rheumatoid factor (HCC) [facility] Personal history of DVT (deep vein thrombosis)- Primary Personal history of venous thrombosis and embolism [facility] Diagnosis 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 rheumatoid factor (HCC) Low back pain with right-sided sciatica, unspecified back pain laterality, unspecified chronicity [facility] Diagnosis 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 rheumatoid factor (HCC) Low back pain with right-sided sciatica, unspecified back pain laterality, unspecified chronicity Pseudogout Other disorder of calcium metabolism [facility] Diagnosis Personal history of DVT (deep vein thrombosis)- Primary Personal history of venous thrombosis and embolism [facility] Diagnosis Essential hypertension- Primary Unspecified essential hypertension Chronic anticoagulation Long-term (current) use of 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 Aortic stenosis with bicuspid valve 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 rheumatoid factor (HCC) COPD without exacerbation (HCC) Bronchiectasis without complication (HCC) Bronchiectasis without acute exacerbation Acquired hammertoe of left foot Early dry stage nonexudative age-related macular degeneration of both eyes [facility] Diagnosis Personal history of DVT (deep vein thrombosis)- Primary Personal history of venous thrombosis and embolism [facility] Diagnosis Personal history of DVT (deep vein thrombosis)- Primary Personal history of venous thrombosis and embolism [facility] Diagnosis Personal history of DVT (deep vein thrombosis)- Primary Personal history of venous thrombosis and embolism [facility] Diagnosis Lung nodules- Primary Other [...] [facility] 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- Primary Long-term (current) use of 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 [facility] Diagnosis Essential hypertension- Primary Unspecified essential [...] with bicuspid valve [facility] Diagnosis Chronic anticoagulation Long-term (current) use of 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 documented [facility] Diagnosis Chronic anticoagulation Long-term (current) use of 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 documented [facility] this [facility] Diagnosis Personal history of DVT (deep vein thrombosis)- Primary Personal history of venous thrombosis and embolism documented in this encounter [facility]* Diagnosis Embolism and thrombosis (HCC)- Primary Embolism and thrombosis of unspecified site [facility] Diagnosis DDD (degenerative disc disease), lumbar- Primary Degeneration of lumbar or lumbosacral intervertebral disc Hip pain, acute, left Age-related osteoporosis without current pathological fracture Senile osteoporosis [facility] Diagnosis Embolism and thrombosis (HCC)- Primary Embolism and thrombosis of unspecified site [facility] Diagnosis 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 rheumatoid factor (HCC) Low back pain with right-sided sciatica, unspecified back pain laterality, unspecified chronicity documented in this encounter [facility] Diagnosis Lung nodules Other nonspecific abnormal finding of lung field documented in this encounter [facility] Diagnosis Encounter for screening mammogram for breast cancer documented [facility] this [facility] Diagnosis Encounter for immunization- Primary Need for other specified prophylactic vaccination against single bacterial disease documented [facility] this [facility] Diagnosis Embolism and thrombosis (HCC)- Primary Embolism and thrombosis of unspecified site documented [facility] this [facility] Diagnosis Personal history of DVT (deep vein thrombosis)- Primary Personal history of venous thrombosis and embolism documented [facility] Diagnosis Acute cough- Primary documented in this encounter [facility] for referral (narrative)* Outpatient Procedure (Routine) - Authorized Specialty Diagnoses / Procedures [facility] Diagnoses Aortic stenosis with bicuspid valve Essential hypertension Procedures ECHO ECHO TTHRC R-T 2D W/WOM-MODE COMPL SPEC&COLR D SiddharthWilliam [address] [place] [address] [address] Referral ID Status Reason Start Date Expiration Date Visits Requested Visits Authorized [id number] Authorized Auto-Generat ed Referral 08/12/2021 08/12/2022 1 1 * Outpatient Procedure (Routine) - Closed Specialty Diagnoses / Procedures [facility] To Contact [facility] Diagnoses Aortic stenosis with bicuspid valve Essential hypertension Procedures ECG COMPLETE ECG ROUTINE ECG W/LEAST 12 LDS W/I&R Puma Ambrizory Jeff [address] [place] [address] [place] [id number] Referral ID Status Reason Start Date Expiration Date V isits Requested Visits Authorized [id number] Closed Auto-Generate d Referral 08/12/2021 08/12/2022 1 1 [facility] for referral (narrative)* Diagnostic Procedure Only (Routine) - Closed Specialty Diagnoses / Procedures [facility] Diagnoses Ulcer of toe of left foot, limited to breakdown of skin (HCC) Hammer toe of left foot Procedures XR FOOT GENERAL 3V AP/LAT/OBL LEFT RADEX FOOT COMPLETE MINIMUM 3 VIEWS Yonas Louise [address] [place] [address] Xr Imaging Referral ID Status Reason Start Date Expiration Date V isits Requested Visits Authorized [id number] Closed Auto-Generate d Referral 10/18/2021 11/17/2022 1 1 [facility] for referral (narrative)* Diagnostic Procedure Only (Routine) - Closed Specialty Diagnoses / Procedures Referred By Divya reis Referred To Contact [facility] IMAGING Diagnoses Ulcer of toe of left foot, limited to breakdown of skin (HCC) Hammer toe of left foot Procedures XR FOOT GENERAL 3V AP/LAT/OBL LEFT RADEX FOOT COMPLETE MINIMUM 3 VIEWS Yonas Louise [address] [place] [address] Xr Imaging Referral ID Status Reason Start Date Expiration Date V isits Requested Visits Authorized [id number] Closed Auto-Generate d Referral 10/18/2021 11/17/2022 1 1 T [facility] for referral (narrative)* Outpatient Procedure (Routine) - Authorized Specialty Diagnoses / Procedures Referred By Divya reis Ref[facility] Diagnoses Aortic stenosis with bicuspid valve Procedures ECHO ECHO TTHRC R-T 2D W/WOM-MODE COMPL SPEC&COLR D Rachelle Lai C++ PROFESSOR.BREAD OVEN OPERATOR [address] [address] [facility] [address] [place] [address] Referral ID Status Reason Start Date Expiration Date Visits Requested Visits Authorized [id number] Authorized Auto-Generat ed Referral 08/29/2022 08/29/2023 1 1 T [facility] for referral (narrative)* Diagnostic Procedure Only (Routine) - Authorized Specialty Diagnoses / Procedures Referred By Divya reis Referred To Contact [facility] Diagnoses Encounter for screening mammogram for breast cancer Procedures SABINO SCREENING W ALIZE SCREENING DIGITAL BREAST TOMOSYNTHESIS BI SCREENING MAMMOGRAPHY BI 2-VIEW BREAST INC CAD Jimbo Carias, C++ PROFESSOR.ROLLER MAKER [address] [place] [address] [facility] [address] [place] [address] Referral ID Status Reason Start Date Expiration Date Visits Requested Visits Authorized [id number] Authorized Auto-Generat ed Referral 10/27/2022 11/26/2023 1 1 * Diagnostic Procedure Only (Routine) - Pending Review Specialty Diagnoses / Procedures Referred By Divya t Referred To Contact [facility] Diagnoses Encounter for screening mammogram for breast cancer Procedures SABINO SCREENING SCREENING MAMMOGRAPHY BI 2-VIEW BREAST INC [place] Jimbo Carias APRN.ROLLER MAKER [address] [place] [address] [facility] [address] [place] [address] Referral ID Status Reason Start Date Expiration Date Visits Requested Visits Authorized [id number] Pending Review Auto-Generat ed Referral 10/27/2022 11/26/2023 1 1 [facility] for referral (narrative)* Diagnostic Procedure Only (Routine) - Closed Specialty Diagnoses / Procedures Referred By Divya t Referred To Contact [facility] Diagnoses Encounter for screening mammogram for breast cancer Procedures SABINO SCREENING W ALIZE SCREENING DIGITAL BREAST TOMOSYNTHESIS BI SCREENING MAMMOGRAPHY BI 2-VIEW BREAST INC [facility] CariasJimbo tavares APRN.ROLLER MAKER [address] [place] [address] [facility] [address] [place] [address] Referral ID Status Reason Start Date Expiration Date V isits Requested Visits Authorized [id number] Closed Auto-Generate d Referral 10/27/2022 11/26/2023 1 1 [facility] for visit Narrative* Diagnostic Procedure Only (Routine) - Closed Specialty Diagnoses / Procedures Referred By Contac t Referred To Contact XR IMAGING Diagnoses Ulcer of toe of left foot, limited to breakdown of skin (HCC) Hammer toe of left foot Procedures XR FOOT GENERAL 3V AP/LAT/OBL LEFT RADEX FOOT COMPLETE MINIMUM 3 [place] [address] Xr Imaging Referral ID Status Reason Start Date Expiration Date V isits Requested Visits Authorized [id number] Closed Auto-Generate d Referral 10/18/2021 11/17/2022 1 1 [facility] Diagnostic Procedure Only (Routine) - Closed Specialty Diagnoses / Procedures Referred By Contac t Referred To Contact [facility] Diagnoses Encounter for screening mammogram for breast cancer Procedures SABINO SCREENING W ALIZE SCREENING DIGITAL BREAST TOMOSYNTHESIS BI SCREENING MAMMOGRAPHY BI 2-VIEW BREAST INC CAD Jimbo Carias, C++ PROFESSOR.ROLLER MAKER [address] [place] [address] [facility] [address] [place] [address] Referral ID Status Reason Start Date Expiration Date V isits Requested Visits Authorized [id number] Closed Auto-Generate d Referral 10/27/2022 11/26/2023 1 1 [facility] Summary Purpose Family History No Family History Records FoundNo Family History Records FoundNo Family History Records FoundNo Family History Records FoundNo Family History Records Found Advance Directives No Advanced Directives Records FoundDocuments on File Type Date Recorded Patient Candy Feeder Expl anation Advance Directive(s) 02/25/2018 1:19 PM Latest Code Status on File Code Status Date Activated Date Inactivated Comments Full Code 03/02/2018 6:22 PM 03/03/2018 4:33 PM Full Code Order Discussed With: Patient Documents on File Type Date Recorded Patient Candy Feeder Expl anation Advance Directive(s) 03/24/2019 12:16 PM Advance Directive(s) 03/02/2018 11:28 AM Advance Directive(s) 02/25/2018 1:11 PM Advance Directive(s) 02/25/2018 1:19 PM Advance Directive(s) 01/25/2018 9:15 AM Advance Directive(s) 07/30/2017 2:22 PM Documents on File Type Date Recorded Patient Candy Feeder Expl anation Advance Directive(s) 03/24/2019 12:16 PM Advance Directive(s) 03/02/2018 11:28 AM Advance Directive(s) 02/25/2018 1:11 PM Advance Directive(s) 02/25/2018 1:19 PM Advance Directive(s) 01/25/2018 9:15 AM Advance Directive(s) 07/30/2017 2:22 PM Latest Code Status on File Code Status Date Activated Date Inactivated Comments Full Code 03/02/2018 6:22 PM 03/03/2018 4:33 PM Documents on File Type Date Recorded Patient Candy Feeder Expl anation Advance Directive(s) 02/25/2018 1:19 PM [...] W/O Florence Duncan MD [address] [place] [address] Ct Imaging Referral ID Status Reason Start Date Expiration Date Visits Requested Visits Authorized [id number] Authorized Auto-Generat ed Referral 2 12/29/2022 1 1 Specialty Diagnoses / Procedures Referred By Contac t Referred To Contact CT IMAGING Diagnoses Lung nodules Bronchiectasis without complication (HCC) Procedures CT CHEST WO IVCON DIAGNOSTIC COMPUTED TOMOGRAPHY THORAX W/O Florence Duncan MD [address] [place] [address] Ct Imaging Referral ID Status Reason Start Date Expiration Date Visits Requested Visits Authorized [id number] Authorized Auto-Generat ed Referral 01/23/2023 08/23/2023 1 1 Specialty Diagnoses / Procedures Referred By Divya t Referred To Contact CT IMAGING Diagnoses Lung nodules Procedures CT CHEST WO IVCON DIAGNOSTIC COMPUTED TOMOGRAPHY THORAX W/O CNTRST Florence Terry MD [address] [place] [address] [place] [address] Referral ID Status Reason Start Date Expiration Date V isits Requested Visits Authorized [id number] Closed Auto-Generate d Referral 11/29/2021 12/29/2022 1 [...] DATE CREATED AUTHOR AUTHOR'S ORGANIZ ATION 03/10/2018 [facility] DATE CREATED AUTHOR AUTHOR'S ORGANIZ ATION 05/29/2020 [facility] DATE CREATED AUTHOR AUTHOR'S ORGANIZ ATION 03/18/2023 [facility] DATE CREATED AUTHOR AUTHOR'S ORGANIZ ATION 03/26/2023 [facility] Source Comments (unrecognize d section and content) In the event this informatio n is protected by the Federal Confidentiality of Alcohol and Drug Abuse Patient Records regulations: The Federal rules restrict any use of the information to criminally investigate or prosecute any alcohol or drug abuse patient.[facility] the event this information is protected by the Federal Confidentiality of Alcohol and Drug Abuse Patient Records regulations: The Federal rules restrict any use of the information to criminally investigate or prosecute any alcohol or drug abuse patient.[facility] the event this information is protected by the Federal Confidentiality of Alcohol and Drug Abuse Patient Records regulations: The Federal rules restrict any use of the information to criminally investigate or prosecute any alcohol or drug abuse patient.[facility] the event this information is protected by the Federal Confidentiality of Alcohol and Drug Abuse Patient Records regulations: The Federal rules restrict any use of the information to criminally investigate or prosecute any alcohol or drug abuse patient.[facility] the event this information is protected by the Federal Confidentiality of Alcohol and Drug Abuse Patient Records regulations: The Federal rules restrict any use of the information to criminally investigate or prosecute any alcohol or drug abuse patient.[facility] the event this information is protected by the Federal Confidentiality of Alcohol and Drug Abuse Patient Records regulations: The Federal rules restrict any use of the information to criminally investigate or prosecute any alcohol or drug abuse patient.[facility] the event this information is protected by the Federal Confidentiality of Alcohol and Drug Abuse Patient Records regulations: The Federal rules restrict any use of the information to criminally investigate or prosecute any alcohol or drug abuse patient.[facility] the event this information is protected by the Federal Confidentiality of Alcohol and Drug Abuse Patient Records regulations: The Federal rules restrict any use of the information to criminally investigate or prosecute any alcohol or drug abuse patient.[facility]In the event this information is protected by the Federal Confidentiality of Alcohol and Drug Abuse Patient Records regulations: The Federal rules restrict any use of the information to criminally investigate or prosecute any alcohol or drug abuse patient.[facility] HospitalIn the event this information is protected by the Federal Confidentiality of Alcohol and Drug Abuse Patient Records regulations: The Federal rules restrict any use of the information to criminally investigate or prosecute any alcohol or drug abuse patient.[facility] HospitalIn the event this information is protected by the Federal Confidentiality of Alcohol and Drug Abuse Patient Records regulations: The Federal rules restrict any use of the information to criminally investigate or prosecute any alcohol or drug abuse patient.[facility] HospitalIn the event this information is protected by the Federal Confidentiality of Alcohol and Drug Abuse Patient Records regulations: The Federal rules restrict any use of the information to criminally investigate or prosecute any alcohol or drug abuse patient.[facility] HospitalIn the event this information is protected by the Federal Confidentiality of Alcohol and Drug Abuse Patient Records regulations: The Federal rules restrict any use of the information to criminally investigate or prosecute any alcohol or drug abuse patient.[facility] HospitalIn the event this information is protected by the Federal Confidentiality of Alcohol and Drug Abuse Patient Records regulations: The Federal rules restrict any use of the information to criminally investigate or prosecute any alcohol or drug abuse patient.[facility] HospitalIn the event this information is protected by the Federal Confidentiality of Alcohol and Drug Abuse Patient Records regulations: The Federal rules restrict any use of the information to criminally investigate or prosecute any alcohol or drug abuse patient.[facility] HospitalIn the event this information is protected by the Federal Confidentiality of Alcohol and Drug Abuse Patient Records regulations: The Federal rules restrict any use of the information to criminally investigate or prosecute any alcohol or drug abuse patient.[facility] HospitalIn the event this information is protected by the Federal Confidentiality of Alcohol and Drug Abuse Patient Records regulations: The Federal rules restrict any use of the information to criminally investigate or prosecute any alcohol or drug abuse patient.[facility] HospitalIn the event this information is protected by the Federal Confidentiality of Alcohol and Drug Abuse Patient Records regulations: The Federal rules restrict any use of the information to criminally investigate or prosecute any alcohol or drug abuse patient.[facility] HospitalIn the event this information is protected by the Federal Confidentiality of Alcohol and Drug Abuse Patient Records regulations: The Federal rules restrict any use of the information to criminally investigate or prosecute any alcohol or drug abuse patient.[facility] HospitalIn the event this information is protected by the Federal Confidentiality of Alcohol and Drug Abuse Patient Records regulations: The Federal rules restrict any use of the information to criminally investigate or prosecute any alcohol or drug abuse patient.[facility] HospitalIn the event this information is protected by the Federal Confidentiality of Alcohol and Drug Abuse Patient Records regulations: The Federal rules restrict any use of the information to criminally investigate or prosecute any alcohol or drug abuse patient.[facility] HospitalIn the event this information is protected by the Federal Confidentiality of Alcohol and Drug Abuse Patient Records regulations: The Federal rules restrict any use of the information to criminally investigate or prosecute any alcohol or drug abuse patient.[facility] HospitalIn the event this information is protected by the Federal Confidentiality of Alcohol and Drug Abuse Patient Records regulations: The Federal rules restrict any use of the information to criminally investigate or prosecute any alcohol or drug abuse patient.[facility] HospitalIn the event this information is protected by the Federal Confidentiality of Alcohol and Drug Abuse Patient Records regulations: The Federal rules restrict any use of the information to criminally investigate or prosecute any alcohol or drug abuse patient.[facility] HospitalIn the event this information is protected by the Federal Confidentiality of Alcohol and Drug Abuse Patient Records regulations: The Federal rules restrict any use of the information to criminally investigate or prosecute any alcohol or drug abuse patient.[facility] HospitalIn the event this information is protected by the Federal Confidentiality of Alcohol and Drug Abuse Patient Records regulations: The Federal rules restrict any use of the information to criminally investigate or prosecute any alcohol or drug abuse patient.[facility] HospitalIn the event this information is protected by the Federal Confidentiality of Alcohol and Drug Abuse Patient Records regulations: The Federal rules restrict any use of the information to criminally investigate or prosecute any alcohol or drug abuse patient.[facility] HospitalIn the event this information is protected by the Federal Confidentiality of Alcohol and Drug Abuse Patient Records regulations: The Federal rules restrict any use of the information to criminally investigate or prosecute any alcohol or drug abuse patient.[facility] HospitalIn the event this information is protected by the Federal Confidentiality of Alcohol and Drug Abuse Patient Records regulations: The Federal rules restrict any use of the information to criminally investigate or prosecute any alcohol or drug abuse patient.[facility] HospitalIn the event this information is protected by the Federal Confidentiality of Alcohol and Drug Abuse Patient Records regulations: The Federal rules restrict any use of the information to criminally investigate or prosecute any alcohol or drug abuse patient.[facility] HospitalIn the event this information is protected by the Federal Confidentiality of Alcohol and Drug Abuse Patient Records regulations: The Federal rules restrict any use of the information to criminally investigate or prosecute any alcohol or drug abuse patient.[facility] HospitalIn the event this information is protected by the Federal Confidentiality of Alcohol and Drug Abuse Patient Records regulations: The Federal rules restrict any use of the information to criminally investigate or prosecute any alcohol or drug abuse patient.[facility] HospitalIn the event this information is protected by the Federal Confidentiality of Alcohol and Drug Abuse Patient Records regulations: The Federal rules restrict any use of the information to criminally investigate or prosecute any alcohol or drug abuse patient.[facility] HospitalIn the event this information is protected by the Federal Confidentiality of Alcohol and Drug Abuse Patient Records regulations: The Federal rules restrict any use of the information to criminally investigate or prosecute any alcohol or drug abuse patient.[facility] HospitalIn the event this information is protected by the Federal Confidentiality of Alcohol and Drug Abuse Patient Records regulations: The Federal rules restrict any use of the information to criminally investigate or prosecute any alcohol or drug abuse patient.[facility] HospitalIn the event this information is protected by the Federal Confidentiality of Alcohol and Drug Abuse Patient Records regulations: The Federal rules restrict any use of the information to criminally investigate or prosecute any alcohol or drug abuse patient.[facility] HospitalIn the event this information is protected by the Federal Confidentiality of Alcohol and Drug Abuse Patient Records regulations: The Federal rules restrict any use of the information to criminally investigate or prosecute any alcohol or drug abuse patient.[facility] HospitalIn the event this information is protected by the Federal Confidentiality of Alcohol and Drug Abuse Patient Records regulations: The Federal rules restrict any use of the information to criminally investigate or prosecute any alcohol or drug abuse patient.[facility] HospitalIn the event this information is protected by the Federal Confidentiality of Alcohol and Drug Abuse Patient Records regulations: The Federal rules restrict any use of the information to criminally investigate or prosecute any alcohol or drug abuse patient.[facility] HospitalIn the event this information is protected by the Federal Confidentiality of Alcohol and Drug Abuse Patient Records regulations: The Federal rules restrict any use of the information to criminally investigate or prosecute any alcohol or drug abuse patient.[facility] HospitalIn the event this information is protected by the Federal Confidentiality of Alcohol and Drug Abuse Patient Records regulations: The Federal rules restrict any use of the information to criminally investigate or prosecute any alcohol or drug abuse patient.[facility] HospitalIn the event this information is protected by the Federal Confidentiality of Alcohol and Drug Abuse Patient Records regulations: The Federal rules restrict any use of the information to criminally investigate or prosecute any alcohol or drug abuse patient.[facility] HospitalIn the event this information is protected by the Federal Confidentiality of Alcohol and Drug Abuse Patient Records regulations: The Federal rules restrict any use of the information to criminally investigate or prosecute any alcohol or drug abuse patient.[facility] HospitalIn the event this information is protected by the Federal Confidentiality of Alcohol and Drug Abuse Patient Records regulations: The Federal rules restrict any use of the information to criminally investigate or prosecute any alcohol or drug abuse patient.[facility] HospitalIn the event this information is protected by the Federal Confidentiality of Alcohol and Drug Abuse Patient Records regulations: The Federal rules restrict any use of the information to criminally investigate or prosecute any alcohol or drug abuse patient.[facility] HospitalIn the event this information is protected by the Federal Confidentiality of Alcohol and Drug Abuse Patient Records regulations: The Federal rules restrict any use of the information to criminally investigate or prosecute any alcohol or drug abuse patient.[facility] the event this information is protected by the Federal Confidentiality of Alcohol and Drug Abuse Patient Records regulations: The Federal rules restrict any use of the information to criminally investigate or prosecute any alcohol or drug abuse patient.[facility] HospitalIn the event this information is protected by the Federal Confidentiality of Alcohol and Drug Abuse Patient Records regulations: The Federal rules restrict any use of the information to criminally investigate or prosecute any alcohol or drug abuse patient.[facility] HospitalIn the event this information is protected by the Federal Confidentiality of Alcohol and Drug Abuse Patient Records regulations: The Federal rules restrict any use of the information to criminally investigate or prosecute any alcohol or drug abuse patient.[facility] HospitalIn the event this information is protected by the Federal Confidentiality of Alcohol and Drug Abuse Patient Records regulations: The Federal rules restrict any use of the information to criminally investigate or prosecute any alcohol or drug abuse patient.[facility] HospitalIn the event this information is protected by the Federal Confidentiality of Alcohol and Drug Abuse Patient Records regulations: The Federal rules restrict any use of the information to criminally investigate or prosecute any alcohol or drug abuse patient.[facility] HospitalIn the event this information is protected by the Federal Confidentiality of Alcohol and Drug Abuse Patient Records regulations: The Federal rules restrict any use of the information to criminally investigate or prosecute any alcohol or drug abuse patient.[facility] HospitalIn the event this information is protected by the Federal Confidentiality of Alcohol and Drug Abuse Patient Records regulations: The Federal rules restrict any use of the information to criminally investigate or prosecute any alcohol or drug abuse patient.[facility] HospitalIn the event this information is protected by the Federal Confidentiality of Alcohol and Drug Abuse Patient Records regulations: The Federal rules restrict any use of the information to criminally investigate or prosecute any alcohol or drug abuse patient.[facility] HospitalIn the event this information is protected by the Federal Confidentiality of Alcohol and Drug Abuse Patient Records regulations: The Federal rules restrict any use of the information to criminally investigate or prosecute any alcohol or drug abuse patient.[facility] HospitalIn the event this information is protected by the Federal Confidentiality of Alcohol and Drug Abuse Patient Records regulations: The Federal rules restrict any use of the information to criminally investigate or prosecute any alcohol or drug abuse patient.[facility] HospitalIn the event this information is protected by the Federal Confidentiality of Alcohol and Drug Abuse Patient Records regulations: The Federal rules restrict any use of the information to criminally investigate or prosecute any alcohol or drug abuse patient.[facility] HospitalIn the event this information is protected by the Federal Confidentiality of Alcohol and Drug Abuse Patient Records regulations: The Federal rules restrict any use of the information to criminally investigate or prosecute any alcohol or drug abuse patient.[facility] HospitalIn the event this information is protected by the Federal Confidentiality of Alcohol and Drug Abuse Patient Records regulations: The Federal rules restrict any use of the information to criminally investigate or prosecute any alcohol or drug abuse patient.[facility] HospitalIn the event this information is protected by the Federal Confidentiality of Alcohol and Drug Abuse Patient Records regulations: The Federal rules restrict any use of the information to criminally investigate or prosecute any alcohol or drug abuse patient.[facility] HospitalIn the event this information is protected by the Federal Confidentiality of Alcohol and Drug Abuse Patient Records regulations: The Federal rules restrict any use of the information to criminally investigate or prosecute any alcohol or drug abuse patient.[facility] HospitalIn the event this information is protected by the Federal Confidentiality of Alcohol and Drug Abuse Patient Records regulations: The Federal rules restrict any use of the information to criminally investigate or prosecute any alcohol or drug abuse patient.[facility] HospitalIn the event this information is protected by the Federal Confidentiality of Alcohol and Drug Abuse Patient Records regulations: The Federal rules restrict any use of the information to criminally investigate or prosecute any alcohol or drug abuse patient.[facility] HospitalIn the event this information is protected by the Federal Confidentiality of Alcohol and Drug Abuse Patient Records regulations: The Federal rules restrict any use of the information to criminally investigate or prosecute any alcohol or drug abuse patient.[facility] HospitalIn the event this information is protected by the Federal Confidentiality of Alcohol and Drug Abuse Patient Records regulations: The Federal rules restrict any use of the information to criminally investigate or prosecute any alcohol or drug abuse patient.[facility] HospitalIn the event this information is protected by the Federal Confidentiality of Alcohol and Drug Abuse Patient Records regulations: The Federal rules restrict any use of the information to criminally investigate or prosecute any alcohol or drug abuse patient.[facility] HospitalIn the event this information is protected by the Federal Confidentiality of Alcohol and Drug Abuse Patient Records regulations: The Federal rules restrict any use of the information to criminally investigate or prosecute any alcohol or drug abuse patient.[facility] HospitalIn the event this information is protected by the Federal Confidentiality of Alcohol and Drug Abuse Patient Records regulations: The Federal rules restrict any use of the information to criminally investigate or prosecute any alcohol or drug abuse patient.[facility] HospitalIn the event this information is protected by the Federal Confidentiality of Alcohol and Drug Abuse Patient Records regulations: The Federal rules restrict any use of the information to criminally investigate or prosecute any alcohol or drug abuse patient.[facility] HospitalIn the event this information is protected by the Federal Confidentiality of Alcohol and Drug Abuse Patient Records regulations: The Federal rules restrict any use of the information to criminally investigate or prosecute any alcohol or drug abuse patient.[facility] HospitalIn the event this information is protected by the Federal Confidentiality of Alcohol and Drug Abuse Patient Records regulations: The Federal rules restrict any use of the information to criminally investigate or prosecute any alcohol or drug abuse patient.[facility] HospitalIn the event this information is protected by the Federal Confidentiality of Alcohol and Drug Abuse Patient Records regulations: The Federal rules restrict any use of the information to criminally investigate or prosecute any alcohol or drug abuse patient.[facility] HospitalIn the event this information is protected by the Federal Confidentiality of Alcohol and Drug Abuse Patient Records regulations: The Federal rules restrict any use of the information to criminally investigate or prosecute any alcohol or drug abuse patient.[facility] HospitalIn the event this information is protected by the Federal Confidentiality of Alcohol and Drug Abuse Patient Records regulations: The Federal rules restrict any use of the information to criminally investigate or prosecute any alcohol or drug abuse patient.[facility] HospitalIn the event this information is protected by the Federal Confidentiality of Alcohol and Drug Abuse Patient Records regulations: The Federal rules restrict any use of the information to criminally investigate or prosecute any alcohol or drug abuse patient.[facility] HospitalIn the event this information is protected by the Federal Confidentiality of Alcohol and Drug Abuse Patient Records regulations: The Federal rules restrict any use of the information to criminally investigate or prosecute any alcohol or drug abuse patient.[facility] HospitalIn the event this information is protected by the Federal Confidentiality of Alcohol and Drug Abuse Patient Records regulations: The Federal rules restrict any use of the information to criminally investigate or prosecute any alcohol or drug abuse patient.[facility] Reason for Visit (unrecogniz ed section [...] BREAST UNI REAL TIME WITH IMAGE LIMITED Julian, Brenda, C++ PROFESSOR.BREAD OVEN OPERATOR [address] [place] [address] [facility] [address] [place] [address] Referral ID Status Reason Start Date Expiration Date V isits Requested Visits Authorized [id number] Closed Auto-Generate d Referral 09/05/2021 10/05/2022 1 1 Reason Comments Radiology Mammogram Specialty Diagnoses / Procedures Referred By Contac t Referred To Contact [facility] Diagnoses Abnormal mammogram Procedures SABINO DIAGNOSTIC LT DIAGNOSTIC MAMMOGRAPHY COMPUTER-AIDED DETCJ UNI Vonnie, Brenda, C++ PROFESSOR.BREAD OVEN OPERATOR [address] [place] [address] [facility] [address] [place] [address] Referral ID Status Reason Start Date Expiration Date V isits Requested Visits Authorized [id number] Closed Auto-Generate d Referral 09/05/2021 10/05/2022 1 [...] NEW HIGH MDM 60-74 MINUTES Jeana Sommers APRN.BREAD OVEN OPERATOR [address] [id number] Referral ID Status Reason Start Date Expiration Date Visits Requested Visits Authorized [id number] Pending Review PCP Requested Referral 10/11/2022 10/11/2023 1 1 Reason Onset Date Comments Refill Request 12/20/[address] Specialty Diagnoses / Procedures Referred By Contac t Referred To Contact CT IMAGING Diagnoses Lung nodules Procedures CT CHEST WO IVCON DIAGNOSTIC COMPUTED TOMOGRAPHY THORAX W/O Florence Duncan MD [address] [facility] [place] [address] Ct Imaging [place] [id number] Referral ID Status Reason Start Date Expiration Date V isits Requested Visits Authorized [id number] Closed Auto-Generate d Referral 11/29/2021 12/29/2022 1 1 Reason Comments Imm/Inj COVID vaccine and di scuss RSV Reason Comments Refill Request Reason Comments Cough Cough and congestion x 4 weeks Reason Onset Date Comments Appointment 03/23/2023 Care Teams (unrecognized sec tion and content) Security Representative Relationship Specialty Start Date End Date Claudine Durán MD [address] [place] [address] PCP - General Internal Medicine 03/02/16 Will Hurley [address] [facility] [address] Referring Rheumatology 04/09/18 Gold Colón, computer systems designerSourcing Internship Internal Medicine 07/22/20 Security Representative Relationship Specialty Start Date End Date Claudine Durán MD [address] [place] [address] PCP - General Internal Medicine 03/02/16 Will Hurley[address] [facility] [place] [address] Referring Rheumatology 04/09/18 Gold Colón computer systems designerSourcing Internship Internal Medicine 07/22/20 Security Representative Relationship Specialty Start Date End Date Claudine Durán MD [address] [place] [address] PCP - General Internal Medicine 03/02/16 Will Hurley [address] [facility] [place] [address] Referring Rheumatology 04/09/18 Gold Colón computer systems designerSourcing Internship Internal Medicine 07/22/20 Security Representative Relationship Specialty Start Date End Date Claudine Durán MD [address] [place] [address] PCP - General Internal Medicine 03/02/16 Will Hurley [address] [facility] [place] [address] Referring Rheumatology 04/09/18 Gold Colón computer systems designerSourcing Internship Internal Medicine 07/22/20 Security Representative Relationship Specialty Start Date End Date Claudine Durán MD [address] [facility], [place] [address]781 PCP - General Internal Medicine 03/02/16 Will Hurley [address] [facility] [place] [address] Referring Rheumatology 04/09/18 Gold Colón, computer systems designerSourcing Internship Internal Medicine 07/22/20 Security Representative Relationship Specialty Start Date End Date Claudine Durán MD [address] [facility], [place] [address] PCP - General Internal Medicine 03/02/16 Will Hurley [address] [facility] [place] [address] Referring Rheumatology 04/09/18 Gold Colón, computer systems designerSourcing Internship Internal Medicine 07/22/20 Security Representative Relationship Specialty Start Date End Date Claudine Durán MD [address] [place] [address] PCP - General Internal Medicine 03/02/16 Will Hurley [address] [facility] [place] [address] Referring Rheumatology 04/09/18 Gold Colón, computer systems designerSourcing Internship Internal Medicine 07/22/20 Security Representative Relationship Specialty Start Date End Date Claudine Durán MD [address] [place] [address] PCP - General Internal Medicine 03/02/16 Will Hurley [address] [facility] [place] [address] Referring Rheumatology 04/09/18 Gold Colón, computer systems designerSourcing Internship Internal Medicine 07/22/20 Security Representative Relationship Specialty Start Date End Date Claudine Durán MD [address] [place], [place] [address] PCP - General Internal Medicine 03/02/16 Will Hurley [address] [facility] [place] [address] Referring Rheumatology 04/09/18 Gold Colón, computer systems designerSourcing Internship Internal Medicine 07/22/20 Security Representative Relationship Specialty Start Date End Date Claudine Durán MD [address] [place], [place] [address] PCP - General Internal Medicine 03/02/16 Will granger [address] [place] [address] Referring Rheumatology 04/09/18 Gold Colón, computer systems designerSourcing Internship Internal Medicine 07/22/20 Security Representative Relationship Specialty Start Date End Date Claudine Durán MD [address] [place], [place] [address] PCP - General Internal Medicine 03/02/16 Will granger [address] [facility] [place] [address] Referring Rheumatology 04/09/18 Gold Colón, computer systems designerSourcing Internship Internal Medicine 07/22/20 Security Representative Relationship Specialty Start Date End Date Claudine Durán MD [address] [place], [place] [address] PCP - General Internal Medicine 03/02/16 Will Hurley [address] [facility] [place] [address] Referring Rheumatology 04/09/18 Gold Colón, computer systems designerSourcing Internship Internal Medicine 07/22/20 Security Representative Relationship Specialty Start Date End Date Claudine Durán MD [address] [place], [place] [address] PCP - General Internal Medicine 03/02/16 Will Hurley [address] [facility] [place] [address] Referring Rheumatology 04/09/18 Gold Colón, computer systems designerSourcing Internship Internal Medicine 07/22/20 Security Representative Relationship Specialty Start Date End Date Claudine Durán MD [address] [place] [address] PCP - General Internal Medicine 03/02/16 [place] [place] [address] Referring Rheumatology 04/09/18 Gold Colón, computer systems designerSourcing Internship Internal Medicine 07/22/20 Security Representative Relationship Specialty Start Date End Date Claudine Durán MD [address] [place] [address] PCP - General Internal Medicine 03/02/16 [address] [place] [address] Referring Rheumatology 04/09/18 Gold Colón, computer systems designerSourcing Internship Internal Medicine 07/22/20 Security Representative Relationship Specialty Start Date End Date Claudine Durán MD [address] [place] [address] PCP - General Internal Medicine 03/02/16 Will Hurley [address] [place] [address] Referring Rheumatology 04/09/18 Gold Colón, computer systems designerSourcing Internship Internal Medicine 07/22/20 Security Representative Relationship Specialty Start Date End Date Claudine Durán MD [address] [place] [address] PCP - General Internal Medicine 03/02/16 Will Hurley [facility] [address] [facility] [place] [address] Referring Rheumatology 04/09/18 Gold Colón, computer systems designerSourcing Internship Internal Medicine 07/22/20 Security Representative Relationship Specialty Start Date End Date Claudine Durán MD [address] [place] [address] PCP - General Internal Medicine 03/02/16 Will Hurley [facility] [address] [facility] [place] [address] Referring Rheumatology 04/09/18 Lulú Ramos, RN [address] [place], [place] 1026731 Sourcing Internship Family Medicine 07/22/20 Security Representative Relationship Specialty Start Date End Date Claudine Durán MD [address] [place] [address] PCP - General Internal Medicine 03/02/16 Will Hurley [facility] [address] [facility] [place] [address] Referring Rheumatology 04/09/18 Gold Colón, computer systems designerSourcing Internship Internal Medicine 07/22/20 12/20/21 Lulú Ramos, RN [address] [place], [place] [id number] Sourcing Internship Family Medicine 07/22/20 Security Representative Relationship Specialty Start Date End Date Claudine Durán MD [address] [place] [address] PCP - General Internal Medicine 03/02/16 Will Hurley [address] [facility] [place] [address] Referring Rheumatology 04/09/18 Lulú Ramos, RN [address] [place] [address] Sourcing Internship Family Medicine 07/22/20 Security Representative Relationship Specialty Start Date End Date Claudine Durán MD [address] [place] [address] PCP - General Internal Medicine 03/02/16 Will Hurley [facility] N [facility] [address] Referring Rheumatology 04/09/18 Lulú Ramos, PAULA [address] [place] [address] Sourcing Internship Family Medicine 07/22/20 Security Representative Relationship Specialty Start Date End Date Claudine Durán MD [address] [place] [address] PCP - General Internal Medicine 03/02/16 Will Hurley [facility] N [facility] [place] [address] Referring Rheumatology 04/09/18 Lulú Ramos, PAULA [address] [place] [address] Sourcing Internship Family Medicine 07/22/20 Security Representative Relationship Specialty Start Date End Date Claudine Durán MD [address] [place] [address] PCP - General Internal Medicine 03/02/16 Will Hurley [facility] [address] [facility] [place] [address] Referring Rheumatology 04/09/18 Lulú Ramos, PAULA [address] [place] [address] Sourcing Internship Family Medicine 07/22/20 Security Representative Relationship Specialty Start Date End Date Claudine Durán MD [address] [place] [address] PCP - General Internal Medicine 03/02/16 Will Hurley [facility] [address] [facility] [place] [address] Referring Rheumatology 04/09/18 Lulú Ramos, PAULA [address] [place] [address] Sourcing Internship Family Medicine 12/20/21 Security Representative Relationship Specialty Start Date End Date Claudine Durán MD [address] [place] [address] PCP - General Internal Medicine 03/02/16 Will Hurley [facility] [place] [address] Referring Rheumatology 04/09/18 Lulú Ramos RN [address] [place] [address] Sourcing Internship Family Medicine 12/20/21 Security Representative Relationship Specialty Start Date End Date Claudine Durán MD [address] [place] [address] PCP - General Internal Medicine 03/02/16 Will Hurley [facility] N [facility] [address] Referring Rheumatology 04/09/18 Lulú Ramos, PAULA [address] [facility], [place] [id number] Sourcing Internship Family Medicine 12/20/21 Security Representative Relationship Specialty Start Date End Date Claudine Durán MD [address] [place] [address] PCP - General Internal Medicine 03/02/16 Will Hurley [address] [facility] [place] [address] Referring Rheumatology 04/09/18 Lulú Ramos, RN [address] [place] [address] Sourcing Internship [facility] Medicine 12/20/21 Security Representative Relationship Specialty Start Date End Date Claudine Durán MD [address] [place] [address] PCP - General Internal Medicine 03/02/16 Will Hurley [facility] [address] [facility] [place] [address] Referring Rheumatology 04/09/18 Lulú Ramos, PAULA [address] [place] [address] Sourcing Internship [facility] Medicine 12/20/21 Security Representative Relationship Specialty Start Date End Date Claudine Durán MD [address] [place] [address] PCP - General Internal Medicine 03/02/16 Will Hurley [facility] [address] [facility] [place] [address] Referring Rheumatology 04/09/18 Lulú Ramos, RN [address] [place] [address] Sourcing Internship [facility] 12/20/21 Security Representative Relationship Specialty Start Date End Date Claudine Durán MD [address] [place] [address] PCP - General Internal Medicine 03/02/16 Will Hurley [address] [facility] [place] [address] Referring Rheumatology 04/09/18 Lulú Ramos, RN [address] [place], [place] [id number] Sourcing Internship Family Medicine 12/20/21 Security Representative Relationship Specialty Start Date End Date Claudine Durán MD [address] [place] [address] PCP - General Internal Medicine 03/02/16 Will Hurley [facility] N [facility] [address] Referring Rheumatology 04/09/18 Lulú Ramos, RN [address] [place] [address] Sourcing Internship Family Medicine 12/20/21 Security Representative Relationship Specialty Start Date End Date Claudine Durán MD [address] [place] [address] PCP - General Internal Medicine 03/02/16 Will Hurley [facility] N [facility] [address] Referring Rheumatology 04/09/18 uLlú Ramos, PAULA [address] [place] [address] Sourcing Internship Family Medicine 12/20/21 Security Representative Relationship Specialty Start Date End Date Claudine Durán MD [address] [place] [address] PCP - General Internal Medicine 03/02/16 Will Hurley [facility] N [facility] [place] [address] Referring Rheumatology 04/09/18 Lulú Ramos, RN [address] [place] [address] Sourcing Internship Family Medicine 12/20/21 Security Representative Relationship Specialty Start Date End Date Claudine Durán MD [address] [place] [address] PCP - General Internal Medicine 03/02/16 Will Hurley [address] [facility] [place] [address] Referring Rheumatology 04/09/18 Ilda Miller RN [address] [place] [address] Sourcing Internship 07/27/22 Security Representative Relationship Specialty Start Date End Date Claudine Durán MD [address] [place] [address] PCP - General Internal Medicine 03/02/16 Will Hurley [address] [facility] [address] Referring Rheumatology 04/09/18 Ilda Miller RN [address] [place] [address] Sourcing Internship 07/27/22 Security Representative Relationship Specialty Start Date End Date Claudine Durán MD [address] [place] [address] PCP - General Internal Medicine 03/02/16 Will Hurley [address] [facility] [place] [place] [address] Referring Rheumatology 04/09/18 Ilda Miller RN [address] [place] [address] Sourcing Internship 07/27/22 Security Representative Relationship Specialty Start Date End Date Claudine Durán MD [address] [place] [address] PCP - General Internal Medicine 03/02/16 Will Hurley [address] [facility] [address] Referring Rheumatology 04/09/18 Ilda Miller, PAULA [address] [place] [address] Sourcing Internship 07/27/22 Security Representative Relationship Specialty Start Date End Date Claudine Durán MD [address] [place] [address] PCP - General Internal Medicine 03/02/16 Will Hurley [address] [facility] [address] Referring Rheumatology 04/09/18 Ilda Miller, PAULA [address] [place] [address] Sourcing Internship 07/27/22 Security Representative Relationship Specialty Start Date End Date Claudine Durán MD [address] [place] [address] PCP - General Internal Medicine 03/02/16 Will Hurley [address] [facility] [place] [address] Referring Rheumatology 04/09/18 Ilda Miller RN [address] [place] [address] Sourcing Internship 07/27/22 Security Representative Relationship Specialty Start Date End Date Claudine Durán MD [address] [place] [address] PCP - General Internal Medicine 03/02/16 Will Hurley [address] [facility] [place] [address] Referring Rheumatology 04/09/18 Ilda Miller, PAULA [address] [place] [address] Sourcing Internship 07/27/22 Security Representative Relationship Specialty Start Date End Date Claudine Durán MD [address] [place] [address] PCP - General Internal Medicine 03/02/16 Will Hurley [address] [facility] [place] [address] Referring Rheumatology 04/09/18 Ilda Miller RN [address] [place] [address] Sourcing Internship 07/27/22 Security Representative Relationship Specialty Start Date End Date Claudine Durán MD [address] [place] [address] PCP - General Internal Medicine 03/02/16 Will Hurley [address] [facility] [place] [address] Referring Rheumatology 04/09/18 Ilda Miller RN [address] [place] [address] Sourcing Internship 07/27/22 Security Representative Relationship Specialty Start Date End Date Clauidne Durán MD [address] [place] [address] PCP - General Internal Medicine 03/02/16 Will Hurley [address] [facility] [place] [address] Referring Rheumatology 04/09/18 Ilda Miller RN [address] [place] [address] Sourcing Internship 07/27/22 Security Representative Relationship Specialty Start Date End Date Claudine Durán MD [address] [place] [address] PCP - General Internal Medicine 03/02/16 Will Hurley [address] [facility] [place] [place] [address] Referring Rheumatology 04/09/18 Ilda Miller RN [address] [place] [address] Sourcing Internship 07/27/22 Security Representative Relationship Specialty Start Date End Date Claudine Durán MD [address] [place] [address] PCP - General Internal Medicine 03/02/16 Will Hurley [address] [facility] [address] Referring Rheumatology 04/09/18 Ilda Miller, PAULA [address] [place] [address] Sourcing Internship 07/27/22 Security Representative Relationship Specialty Start Date End Date Claudine Durán MD [address] [place] [address] PCP - General Internal Medicine 03/02/16 Will Hurley [address] [facility] [place] [address] Referring Rheumatology 04/09/18 Lulú Ramos, PAULA [address] [place], [place] [address]100[address]31 Sourcing Internship Family Medicine 12/20/2107/26 Security Representative Relationship Specialty Start Date End Date Claudine Durán MD [address] [place] [address] PCP - General Internal Medicine 03/02/16 Will Hurley [address] [facility] [place] [address] Referring Rheumatology 04/09/18 Ilda Miller RN [address] [place] [address] Sourcing Internship 07/27/22 Security Representative Relationship Specialty Start Date End Date Claudine Durán MD [address] [place] [address] PCP - General Internal Medicine 03/02/16 Will Hurley [address] [facility] [address] Referring Rheumatology 04/09/18 Ilda Miller RN [address] [place], [place] [id number] Sourcing Internship 07/27/22 FOR RECORDS PERTAINING TO PATIENTS WHO [...] BE BASED ON THE PRIMARY CLINICAL RECORDS. [facility] [employer] [facility]. provides no warranty or guarantee of the accuracy or completeness of information in this document.
[2023-03-26] MEDS: Ipratropium/Albuterol Sulfate 3 ML AMPUL.NEB INHALATION (19:25)
[2023-03-26] MEDS: Budesonide Respules 0.5 MG/2 ML AMPUL.NEB. INHALATION (19:25)
[2023-03-26] MEDS: Ciprofloxacin 500 MG Tablet PO (23:35)
[2023-03-26] MEDS: Gabapentin 300 MG Capsule PO (23:35)
[2023-03-26] MEDS: metroNIDAZOLE 500 MG Tablet PO (23:35)
[2023-03-27 05:15] VITALS: BP 117/66; PULSE 97; RESP 16; TEMP 36.1; O2SAT 97
[2023-03-27] MEDS: metroNIDAZOLE 500 MG Tablet PO ×2 (05:26→16:24)
[2023-03-27 05:41] VITALS: BMI 22.6
--- NOTE | 2023-03-27 06:52 | PCM.PN.HOSP ---
Reason for Visit Reason for Visit: Diagnoses Histoplasmosis, unspecified (03/26/23) Noninfective gastroenteritis and colitis, unspecified (03/26/23) Disorientation, unspecified (03/26/23) Weakness (03/26/23) COVID-19 (03/26/23) Objective Data Objective Data Vital Signs: Vital Signs Temp Pulse Resp BP Pulse Ox O2 Del Method 97 F L 97 16 117/66 97 Room Air 03/27/23 05:15 03/27/23 05:15 03/27/23 05:15 03/27/23 05:15 03/27/23 05:15 03/27/23 05:15 Oxygen Delivery Method Room Air Weight: 128 lb 1 oz Body Mass Index (BMI) 22.6 Intake & Output: Intake and Output for Last 24 Hours 03/25/23 03/26/23 03/27/23 23:59 23:59 23:59 Intake Total 0 / 0 Output Total 200 / 200 Balance 0 / -200 -200 / -200 Lab / Micro Data 03/27/23 06:47 03/27/23 06:47 Labs: Laboratory Results - last 24 hr 03/26/23 13:15: WBC 16.9 H, RBC 3.29 L, Hgb 8.9 L, Hct 26.8 L, MCV 81.5, MCH 27.1, MCHC 33.2, RDW Std Deviation 48.8 H, RDW Coeff of Catarino 19.6 H, Plt Count 169, MPV 9.9, Immature Gran % (Auto) 3.700 H, Neut % (Auto) 80.3 H, Lymph % (Auto) 6.3 L, Walsh % (Auto) 9.6, Eos % (Auto) 0.0, Baso % (Auto) 0.1, Absolute Neuts (auto) 13.6 H, Absolute Lymphs (auto) 1.06, Nucleated RBC % 0.1, Differential Comment SCANNED, Diff Path Review June foll, PT 33.3 H, INR 3.2, Sodium 135 L, Potassium 3.6, Chloride 101, Carbon Dioxide 27.0, Anion Gap 7, BUN 31 H, Creatinine 0.89, Estim Creat Clear Calc 49.15, Est GFR (MDRD) Af Amer 79, Est GFR (MDRD) Non-Af 66, BUN/Creatinine Ratio 34.8 H, Glucose 111 H, Calcium 8.1 L, Troponin I High Sens 20, B-Natriuretic Peptide 322.3 H 03/26/23 16:09: Urine Color Yellow, Urine Clarity Clear, Urine pH 6.5, Ur Specific [place] 1.015, Urine Protein 30 H, Urine Glucose (UA) Normal, Urine Ketones Negative, Urine Occult Blood 10 H, Urine Nitrite Negative, Urine Bilirubin Negative, Urine Urobilinogen Normal, Ur Leukocyte Esterase Negative, Urine RBC 0 SEEN, Urine WBC 0 SEEN, Ur Squamous Epith Cells 0 SEEN, Urine Bacteria 0 SEEN, Urine Mucus 0 SEEN Radiography Diagnostic Testing: Radiology Impression Chest X-Ray 03/26/23 13:00 IMPRESSION: Mild degree of increased reticular nodular pattern at the lung bases. No acute infiltrate is seen. Electronically Signed: Geo iN MD at 13:20 EST , Physical Exam Narrative General: Alert, oriented, difficult to direct in conversation HEENT: Atraumatic, normocephalic, dry mouth Eyes: Anicteric, normal conjunctiva, extraocular movements grossly intact Neck: Supple Respiratory: Clear to auscultation bilaterally, normal respiratory effort Cardiovascular: Regular rate and rhythm GI: Soft, nontender, nondistended Extremities: 1+ lower extremity edema Musculoskeletal: Moving all extremities Neuro: No overt focal neurological deficits Skin: No rashes appreciated Psych: Patient attempts to be cooperative, somewhat tangential and at times flight of ideas and has difficulty directly answering questions and has some bizarre content Assessment & Plan Assessment/Plan (1) Generalized weakness: (2) Colitis: PLAN: Plan The patient is a 77 y/o F w/ PMHx: GERD, Rheumatoid Arthritis, Hx VTE (DVT, PE), Recent diagnosis Histoplasmosis, recent 03/21/33 evaluation at [facility] with transfer to [facility] secondary to concerns for complex bowel obstruction treated conservative, concerns for colitis administered cipro/flagyl, disseminated histoplasmosis treated with itraconazole, just prior to her presentation diagnosed COVID-19 with hypoxia treated with remdesivir and dexamethasone, temporary hold on her ARB/HCTZ secondary to rise in her Cr in addition to noted treated severe aortic stenosis and moderate pericardial effusion monitored without surgery with restart on her coumadin therapy with planned outpatient work-up, discharged from [facility] 03/25/23 with decline upon return to home, inability to safely care for self prompting presentation to the [facility] ED on 03/26/23 for SNF placement needs. 1. Adult failure to thrive, multifactorial: Admitted to medical surgical floor, maintained on fall precautions, PT and OT as well as case management consulted for discharge planning with likely skilled needs given unsafe concerns at home by self, TSH [], urinalysis with no evidence of any urinary tract infection, chest x-ray with no acute concerning findings thus no infectious overt source. 2. Dyspnea, possibly multifactorial with recent COVID-19 illness as noted: Chest x-ray with mild increased reticulonodular pattern at lung bases but no acute infiltrate, maintaining appropriately on room air, BNP 322, troponin 20, will monitor I's and O's, may consider pulse dose Lasix given recent COVID if necessary, will continue and complete 4 additional days of Decadron therapy, likely a component of atelectasis, will continue ATC budesonide therapy as well as DuoNeb therapy and as needed albuterol. 3. Disseminated histoplasmosis: Recent diagnosis at [facility], will continue recently initiated itraconazole regimen, encourage continued follow-up with Dr. Burger already arranged in 3 months. 4. Recent complicated bowel ? obstruction, concern for perforation, possibly colitis: Patient transferred to [facility], treated conservatively, will continue oral ciprofloxacin and Flagyl regimen to completion. 5. Valvular heart disease with aortic stenosis with recent diagnosis moderate pericardial effusion: Evaluated at [facility] with decision for conservative management, plan follow-up outpatient, could certainly be contributing to dyspnea in addition to her COVID illness. 6. History VTE: Patient with history DVT, PE, will continue Coumadin with INR trending, upon presentation INR 3.2, depending on trending may place hold parameters as needed. 7. Rheumatoid arthritis: Previously on Humira, methotrexate, leucovorin all at home given recent concern for bowel obstruction with concern for perforation and disseminated histoplasmosis, encourage continued outpatient follow-up with rheumatology. 8. Chronic normocytic anemia: Admission hemoglobin 7.9, MCV 85, upon presentation 03/26/2023 hemoglobin 8.9 and prior to this 9.0, will continue to closely monitor especially given recent restart of Coumadin therapy. 9. GERD: We will continue patient on PPI. 10. DVT prophylaxis: Will continue Coumadin with INR trending. 11. Code status: Full Code.
[2023-03-27] MEDS: Budesonide Respules 0.5 MG/2 ML AMPUL.NEB. INHALATION (06:59)
[2023-03-27] MEDS: Ipratropium/Albuterol Sulfate 3 ML AMPUL.NEB INHALATION ×2 (06:59→13:43)
[2023-03-27 07:01] VITALS: PULSE 101; RESP 16; O2SAT 95
[2023-03-27 07:16] LABS: Absolute Lymphocyte Count 1.08 X10^3/uL (0.83-4.51); Absolute Neutrophil Count 9.5 X10^3/uL (2.0-7.7); Basophil# 0.02 X10^3/uL; Basophil% 0.2 % (0-1); Hematocrit 24.4 % (37-47); Hemoglobin 7.9 g/dL (12.0-15.0); Lymphocyte # 1.08 X10^3/ul (0.83-4.51); Lymphocyte % 8.7 % (19-41); Mean Corp Hgb Conc 32.4 g/dL (32-36); Mean Corpuscular Hgb 27.5 pg (27.0-32.0); Mean Platelet Vol. 10.2 fl (6.2-12.0); Monocyte# 1.33 X10^3/uL; Monocyte% 10.7 % (0-10); NRBC Flagged by Analyzer 0.2 % (0-5); Neutrophil # 9.49 X10^3/uL (2.7-7.7); Neutrophil % 76.4 % (47-70); POSITIVE MORPHOLOGY YES; Platelet Count 134 K/mm3 (150-450); RBC Distribution Width CV 20.5 % (11.6-14.6); RBC Distribution Width SD 51.5 fl (35.1-43.9); Red Blood Count 2.87 M/mm3 (4.2-5.4); White Blood Count 12.4 K/mm3 (4.4-11.0)
[2023-03-27 07:21] LABS: Differential Indicated SCAN CRITERIA MET
[2023-03-27 07:34] LABS: Anisocytosis 2+; Differential Comment SCANNED
[2023-03-27 08:07] LABS: International Normalized Ratio 3.9; Prothrombin Time (Protime)PT. 38.9 SECONDS (11.7-14.9)
[2023-03-27 08:27] LABS: ALB/GLOB Ratio 0.8 RATIO (0.9-2.4); AST(SGOT) 27 U/L (15-37); Alanine Aminotransfer ALT/SGPT 65 U/L (13-56); Albumin, Serum 2.3 g/dL (3.2-5.0); Alkaline Phosphatase 170 U/L (45-117); Anion Gap 7 (5-15); BUN 26 mg/dL (7-18); BUN/Creat Ratio 29.9 RATIO (10-20); Calcium,Total 7.7 mg/dL (8.5-10.1); Chloride 101 mmol/L (98-107); Creatinine, Serum 0.87 mg/dL (0.55-1.02); EST Glomerular Filtration Rate 67 mL/min (>60); Est Glom Filt Rate - Afr Amer 82 mL/min (>60); Estimated Creatinine Clearance 46.22 ml/min; Glucose 103 mg/dL (74-106); Magnesium 2.6 mg/dL (1.6-2.6); Potassium 4.1 mmol/L (3.5-5.1); Protein, Total 5.3 g/dL (6.4-8.2); Sodium Level 132 mmol/L (136-145); Thyroid Stim Hormone (TSH) 0.76 uIU/mL (0.358-3.74)
[2023-03-27 10:00] VITALS: BP 105/63; PULSE 96; RESP 18; TEMP 36.8; O2SAT 94
[2023-03-27] MEDS: dexAMETHasone 4 MG Tablet 6 MG PO (10:23)
[2023-03-27] MEDS: Pantoprazole Sodium 40 MG Tablet PO (10:24)
[2023-03-27] MEDS: Ciprofloxacin 500 MG Tablet PO (10:24)
[2023-03-27] MEDS: Gabapentin 300 MG Capsule PO (10:24)
--- NOTE | 2023-03-27 12:40 | CASEMGMT ---
Care Management Face to Face with patient for initial transition planning/care coordination assessment.? This technical proposal writer introduced self and role at [facility]. Patient sitting in chair, alert and oriented. Patient willing to participate in assessment and is able to answer all questions appropriately.? Care providers, pharmacy, and demographics verified. Admitting Diagnosis: Debility Other diagnosis history: per medical record patient with recent COVID 19 illness, recent concern for bowel perforation and treated [facility] conservatively, history of PE history of pericardial effusion, anemia, and rheumatoid arthritis PCP: Dr. Pak Specialists: Patient reports to have rheumatoid specialist at the [facility] in [place], wire bound box machine helper in [place], and the prefabricator, Nell. Patient reports difficulty recalling the names of the specialists. Preferred Pharmacy: [facility] in [place] Insurance: Aet Medicare Prescription Benefit:?yes Living Will/HPOA: patient states that have healthcare power of assistant city attorney and that two friends are listed-Paula Gerardo and Padmini Charlene. This technical proposal writer cannot find advance directives on file, so did ask patient to have this brought into the hospital. Patient agreed. LNOK: Patient reports she is a and never had any biological children. Reports made support system are the two friends mentioned above. Living Arrangements: reports to live a long story home. Patient reports has been completely independent prior to the COVID illness with all ADL completion, mobility needs, including traveling up and down the steps each day. Transportation: reports to drive self. DME/HHC: does have grab bars and reports to have a cane that does not use the cane. Patient does not have a medical alert button, and had no interest in such at this time. Community Resources: denies use of any community resources. No history of nursing facility and no reports of any home health history. Patient goals: Patient wishes to discharge home, denies need for home health at this time.?This technical proposal writer noted in therapy evaluations, that patient does not demonstrate a need for any type of skilled pPT or OT. Patient states has no further needs or concerns at this time, and to be feeling better. Disposition Plan: discharge home, with Maia to provide transportation home. Patient reports plan to go to the pharmacy and get prescriptions that were provided to the patient upon discharge from [place] on March 25, 2023. -SU Medeiros, CRUSHER [employer]Y GROUND MICA *This note was generated with Dragon dictation software. It may contain incorrect words, spelling, and punctuation that were not noted in review of the chart prior to signing*
[2023-03-27 12:55] LABS: Pathologist Review Reviewed
[2023-03-27 13:43] VITALS: PULSE 101; RESP 19
--- NOTE | 2023-03-27 14:01 | DS.PCM_ITS ---
Providers Date of Admission: 03/26/23 Date of Discharge: 03/27/23 Primary Care Physician: Dr. Deyanira Pak MD Reason For Visit: DEBILITY Diagnosis Discharge Diagnosis (1) Generalized weakness: Status: Acute Code(s): R53.1 - Weakness (2) Colitis: Status: Inactive Code(s): K52.9 - Noninfective gastroenteritis and colitis, unspecified Plan: Discharge Diagnoses: 1. Adult failure to thrive, multifactorial 2. Dyspnea, possibly multifactorial with recent COVID-19 illness as noted 3. Disseminated histoplasmosis 4. Recent complicated bowel ? obstruction, concern for perforation, possibly colitis 5. Valvular heart disease with aortic stenosis with recent diagnosis moderate pericardial effusion 6. History VTE with history DVT, PE 7. Rheumatoid arthritis 8. Chronic normocytic anemia 9. GERD 10. Code status: Full Code. Medications at Discharge Home Medications adalimumab 40 mg/0.4 mL subcutaneous pen kit (Humira(CF) Pen) 40 mg subcut Q14D 03/19/23 albuterol sulfate 90 mcg/actuation aerosol inhaler 2 puff inhalation Q4H PRN shortness of breath or wheezing 03/19/23 budesonide-formoterol HFA 160 mcg-4.5 mcg/actuation aerosol inhaler (Symbicort) 2 puff inhalation Q12H 03/19/23 fluticasone propionate 50 mcg/actuation nasal spray,suspension 1 spray intranasal DAILY 03/19/23 gabapentin 300 mg capsule 300 mg PO Q12H 03/19/23 irbesartan 150 mg-hydrochlorothiazide 12.5 mg tablet 1 tab PO DAILY 03/19/23 itraconazole 100 mg capsule 100 mg PO Q8H 03/19/23 leucovorin calcium 5 mg tablet 15 mg PO DAILY 03/19/23 methotrexate sodium 2.5 mg tablet 2.5 mg PO QWEEK 03/19/23 multivitamin (Daily Multi-Vitamin tablet) 1 tab PO DAILY 03/19/23 naproxen 500 mg tablet 500 mg PO Q12H 03/19/23 pantoprazole 40 mg tablet,delayed release 40 mg PO DAILY 03/19/23 potassium chloride 20 mEq tablet,extended release(part/cryst) (Klor-Con M) 20 meq PO BID 03/19/23 tiotropium bromide 2.5 mcg/actuation mist for inhalation (Spiriva Respimat) 2 puff inhalation Q24H 03/19/23 vitamins A,C,J-lhmt-gfwidm 2,148 mcg-113 mg-45 mg-17.4 mg tablet (PreserVision AREDS) 2 tab PO BID 03/19/23 warfarin 5 mg tablet 5 mg PO .COMPLEX 03/19/23 cholecalciferol (vitamin D3) 25 mcg (1,000 unit) capsule 25 mcg PO DAILY 03/26/23 ciprofloxacin HCl 500 mg tablet 500 mg PO Q12H 03/26/23 dexamethasone 6 mg tablet 6 mg PO DAILY 03/26/23 itraconazole 10 mg/mL oral solution 200 mg PO BID 03/26/23 loperamide 2 mg capsule (Anti-Diarrheal (loperamide)) 4 mg PO TID 03/26/23 metronidazole 500 mg tablet 500 mg PO TID 03/26/23 vitamin A-vitamin C-vit E-min tablet (Ocutabs tablet) 2 tab PO DAILY 03/26/23 Hospital Course Operations None Procedures EKG Summary of Care Provided Minutes Spent on Discharge: 35 Hospital Course: The patient is a 77 y/o F w/ PMHx: GERD, Rheumatoid Arthritis, Hx VTE (DVT, PE), Recent diagnosis Histoplasmosis, recent 03/21/33 evaluation at [facility] with transfer to [facility] secondary to concerns for complex bowel obstruction treated conservative, concerns for colitis administered cipro/flagyl, disseminated histoplasmosis treated with itraconazole, just prior to her presentation diagnosed COVID-19 with hypoxia treated with remdesivir and dexamethasone, tempo rary hold on her ARB/HCTZ secondary to rise in her Cr in addition to noted treated severe aortic stenosis and moderate pericardial effusion monitored without surgery with restart on her coumadin therapy with planned outpatient work-up, discharged from [facility] 03/25/23 with decline upon return to home, inability to safely care for self prompting presentation to the [facility] ED on 03/26/23 for SNF placement needs. Admitted to medical surgical floor, maintained on fall precautions, PT and OT as well as case management consulted for discharge planning with likely skilled needs given unsafe concerns at home by self, TSH 0.76, urinalysis with no evidence of any urinary tract infection, chest x-ray with no acute concerning findings thus no infectious overt source. Chest x-ray with mild increased reticulonodular pattern at lung bases but no acute infiltrate, maintained appropriately on room air, BNP 322, troponin 20, continued her Decadron therapy, felt likely a component of atelectasis, maintained on ATC budesonide therapy as well as DuoNeb therapy and as needed albuterol. Continued her itraconazole regimen for recently diagnosed disseminated histoplasmosis and encouraged continued follow-up with Dr. Burger already arranged in 3 months. Maintained patient also on oral Flagyl and ciprofloxacin regimen for recent questionable obstruction with perforation and possibly colitis. Encourage strongly the patient follow-up with cardiology given her recent noted valvular disease with pericardial effusion. Patient was maintained on Coumadin with INR trending for her known VTE history with PE. Admission hemoglobin 7.9, MCV 85, upon presentation 03/26/2023 hemoglobin 8.9 with repeat 03/27/2023 7.9 with no evidence of any bleeding with appropriate INR level. Did discuss this drop with patient however she noted feeling significantly improved and insisted upon being discharged to home. She declined any further home health care needs or any concept of placement for assisted living. Given this patient was discharged to home on her regimen recently started at discharge from [facility] and strongly encouraged to maintain all her appropriate follow-up. DAY OF DISCHARGE PROGRESS NOTE: Subjective: Patient without acute event overnight per self and nursing report. Patient denies fever, chills, nausea, emesis, abdominal pain, chest pain or dyspnea. Patient very adamant to be discharged to home and is refusing any home health care or any additional assistive devices. She notes she is able to use a cane that she has at home and does not want a walker. Patient will be discharged with follow-up with primary care physician as well as all other discharge appointments that were made by [facility]. Objective: T98.2, heart rate 96, BP 105/63, respiratory rate 18, 94% on room air. Physical Examination: General: awake, alert, oriented x 3 and cooperative, seated upright in the bed, NAD, patient speaking fast but all ideas appropriate and lineal at this time. Skin: normal color, turgor, no icterus, cyanosis except for various staged ecchymoses noted. HEENT: AT/NC, EOMI, PERRLA, MMM. Lungs: Mildly diminished, decreased strong respiratory inspiratory effort, no distress, no rales, ronchi or wheezing; Heart: Regular rate and rhythm; no gallop, rub audible. Abdomen: soft, NTTP, ND, normal BS. Extremities: no cyanosis, clubbing, or edema. Neurological: patient awake, alert, oriented as noted, cognitive function appears intact upon questioning, cranial nerves grossly normal, moving all 4 extremities, strength improved, mildly globally decreased. Psychiatric: affect appears appropriate, very talkative but appropriate lineal thoughts, no acute evidence of depressive or anxiety feelings. Assessment and Plan: Please see hospital summary above. Weight / BMI Weight Weight: 128 lb 1 oz Body Mass Index (BMI) 22.6 ABG / Lab / Microbiology Data 03/27/23 06:47 03/27/23 06:47 Laboratory: Laboratory Results - last 24 hr 03/26/23 13:15: Diff Path Review Reviewed, B-Natriuretic Peptide 322.3 H 03/26/23 16:09: Urine Color Yellow, Urine Clarity Clear, Urine pH 6.5, Ur Specific [place] 1.015, Urine Protein 30 H, Urine Glucose (UA) Normal, Urine Ketones Negative, Urine Occult Blood 10 H, Urine Nitrite Negative, Urine Bilirubin Negative, Urine Urobilinogen Normal, Ur Leukocyte Esterase Negative, Urine RBC 0 SEEN, Urine WBC 0 SEEN, Ur Squamous Epith Cells 0 SEEN, Urine Bacteria 0 SEEN, Urine Mucus 0 SEEN 03/27/23 06:47: WBC 12.4 H, RBC 2.87 L, Hgb 7.9 L, Hct 24.4 L, MCV 85.0, MCH 27.5, MCHC 32.4, RDW Std Deviation 51.5 H, RDW Coeff of Catarino 20.5 H, Plt Count 134 L, MPV 10.2, Immature Gran % (Auto) 4.000 H, Neut % (Auto) 76.4 H, Lymph % (Auto) 8.7 L, [place] % (Auto) 10.7 H, Eos % (Auto) 0.0, Baso % (Auto) 0.2, Absolute Neuts (auto) 9.5 H, Absolute Lymphs (auto) 1.08, Nucleated RBC % 0.2, Differential Comment SCANNED, Anisocytosis 2+, PT 38.9 H, INR 3.9, Sodium 132 L, Potassium 4.1, Chloride 101, Carbon Dioxide 24.0, Anion Gap 7, BUN 26 H, Creatinine 0.87, Estim Creat Clear Calc 46.22, Est GFR (MDRD) Af Amer 82, Est GFR (MDRD) Non-Af 67, BUN/Creatinine Ratio 29.9 H, Glucose 103, Calcium 7.7 L, Magnesium 2.6, Total Bilirubin 1.70 H, AST 27, ALT 65 H, Alkaline Phosphatase 170 H, Total Protein 5.3 L, Albumin 2.3 L, Globulin 3.0, Albumin/Globulin Ratio 0.8 L, TSH 0.76 D/C Instructions Discharge Diet: Low fat / Low cholesterol Weight Bearing Status: Weight bearing as tolerated Call your doctor if you observe: Fever of 101 or Higher, Numbness or Tingling, Shortness of breath, Dizziness, Chest pain, Increased palpitations (irregular heartbeat) and Uncontrolled pain Meaningful Use Info Meaningful Use Diagnoses (Choose all that apply): None applicable Discharge Plan Admission Admit Date/Time: 03/26/23 15:52 Primary Reason for Your Visit: Adult FTT, recent COVID/Disseminated Histoplasmo sis/Bowel perf concern/PE Attending Provider: Alisa Mathew Primary Care Provider: Deyanira Pak Consulting Providers: Laine Veras Instructions Additional Instructions / Restrictions: Per your recent [facility] discharge: 1. Please hold your irbesartan/hydrochlorothiazide until repeat renal function assessment with your primary care physician and blood pressure check with resumption at that time if appropriate. 2. Complete your oral ciprofloxacin and Flagyl regimen as previously prescribed per [facility]. [facility] did say on their discharge that if necessary you could take Imodium capsules 3 times daily as needed for diarrhea. 3. Continue itraconazole solution 2 times daily and follow-up with Dr. Parson in 3 months however if concerns call his office earlier. 4. Please finish out your Decadron oral regimen for recent COVID illness. 5. Follow-up as previously arranged with Coumadin clinic for INR trending. 6. Please continue follow-up as previously arranged with the anticoagulation clinic, your strategy manager, pulmonary medicine, and primary care. Additional: At discharge you declined any further concept of skilled placement, assisted living needs or home health needs and noted intention to use a cane that you had already at home; however, if things worsen or you need additional assistive devices or concerns arise please do not hesitate to contact medical surgical 3 at [facility]. Discharge Orders/Prescriptions Prescriptions: Continued gabapentin 300 mg capsule 300 mg PO Q12H albuterol sulfate 90 mcg/actuation HFA aerosol inhaler 2 puff INHALATION Q4H PRN (Reason: shortness of breath or wheezing) fluticasone propionate 50 mcg/actuation spray,suspension 1 spray INTRANASAL DAILY budesonide-formoterol [Symbicort] 160-4.5 mcg/actuation HFA aerosol inhaler 2 puff INHALATION Q12H itraconazole 100 mg capsule 100 mg PO Q8H Hold Instructions: MD Ordered naproxen 500 mg tablet 500 mg PO Q12H pantoprazole 40 mg tablet,delayed release (DR/EC) 40 mg PO DAILY warfarin 5 mg tablet 5 mg PO .COMPLEX Rx Instructions: 5 mg orally Sunday, Sunday; 7.5 mg orally Sunday, , Sunday, Sunday, Sunday Spiriva Respimat 2.5 mcg/actuation mist 2 puff INHALATION Q24H potassium chloride [Klor-Con M20] 20 mEq tablet,ER particles/crystals 20 meq PO BID PreserVision AREDS 2,148 mcg-113 mg-45 mg-17.4mg tablet 2 tab PO BID Rx Instructions: administer with AM and PM meals multivitamin [Daily Multi-Vitamin] Tablet 1 tab PO DAILY ciprofloxacin HCl 500 mg tablet 500 mg PO Q12H dexamethasone 6 mg tablet 6 mg PO DAILY itraconazole 10 mg/mL solution 200 mg PO BID Rx Instructions: administer on an empty stomach loperamide [Anti-Diarrheal (loperamide)] 2 mg capsule 4 mg PO TID metronidazole 500 mg tablet 500 mg PO TID cholecalciferol (vitamin D3) 25 mcg (1,000 unit) capsule 25 mcg PO DAILY Ocutabs Tablet 2 tab PO DAILY Held Humira(CF) Pen 40 mg/0.4 mL pen injector kit 40 mg SUBCUT Q14D Hold Instructions: Resume on 04/24/23. HOLD UNTIL ALLOWED TO RESTART GIVEN R ECENT DISSEMINATED HISTOPLASMOSIS AND COVID. irbesartan-hydrochlorothiazide 150-12.5 mg tablet 1 tab PO DAILY Hold Instructions: Resume on 04/24/23. May resume if appropriate and repeat BP assessments and renal function normalized upon PCP re-evaluation at follow- up. leucovorin calcium 5 mg tablet 15 mg PO DAILY Hold Instructions: Resume on 04/24/23. HOLD UNTIL ALLOWED TO RESTART GIVEN RECENT DISSEMINATED HISTOPLASMOSIS AND COVID. methotrexate sodium 2.5 mg tablet 2.5 mg PO QWEEK Hold Instructions: Resume on 04/24/23. HOLD UNTIL ALLOWED TO RESTART GIVEN RE CENT DISSEMINATED HISTOPLASMOSIS AND COVID. Rx Instructions: Take every Sunday; Patient takes 2 tablets in AM and 1 tablet in PM Referrals / Follow Up: Killian Burger [Other] (Please follow-up in 3 months as previously recommended on your occasional paperwork. If there are any concerns please contact her office earlier.) Mack Messina [Other] (Follow-up with Cardiology as arranged on 04/09/23 10 am.) Johanna Mariscal PA-C [Other] (Follow-up with Pulmonary medicine as arranged pretty recent [facility] discharged on 04/17/2023 9:30 AM.) Deyanira Pak MD [Primary Care Provider] - (Follow-up within 3-5 days.) Disposition Disposition (needs filled in before D/C Order can be placed): Home, Self Care Charges/Coding Visit Charges Inpatient E&M: 33408 Disch Hosp >30min
--- NOTE | 2023-03-27 14:21 | CASEMGMT ---
ADVANCED DIRECTIVE VALIDATION Met with patient to discuss advanced directives. Validated verbally with the patient. Patient reports to have a POAHC and living will, and has identified friends Padmini Chang and Milena Gerardo on the POAHC. Patient is discharging to home today, so unable to bring the documents into the hospital currently. Asked patient to bring a copy into the hospital when able, so documents can be part of patient's medical record. -АНДРЕЙ Medeiros
--- NOTE | 2023-03-27 14:24 | PHA.DC.MR.R ---
[facility]arm[facility] [place] Med Reconciliation Pharmacy Service has performed discharge medication reconciliation for this patient. INR is 3.9, contacted arti Echeverria to hold warfarin dose tonight. Attempted to call patient (due to COVID precautions) to let her know but patient did not answer. Spoke to nurse, Haydee, she will let patient know to hold tonight's warfarin dose. The patient's discharge medication list was reviewed for discrepancies and discrepancies were resolved. Medications at Discharge Home Medications adalimumab 40 mg/0.4 mL subcutaneous pen kit (Humira(CF) Pen) 40 mg subcut Q14D 03/19/23 albuterol sulfate 90 mcg/actuation aerosol inhaler 2 puff inhalation Q4H PRN shortness of breath or wheezing 03/19/23 budesonide-formoterol HFA 160 mcg-4.5 mcg/actuation aerosol inhaler (Symbicort) 2 puff inhalation Q12H 03/19/23 fluticasone propionate 50 mcg/actuation nasal spray,suspension 1 spray intranasal DAILY 03/19/23 gabapentin 300 mg capsule 300 mg PO Q12H 03/19/23 irbesartan 150 mg-hydrochlorothiazide 12.5 mg tablet 1 tab PO DAILY 03/19/23 itraconazole 100 mg capsule 100 mg PO Q8H 03/19/23 leucovorin calcium 5 mg tablet 15 mg PO DAILY 03/19/23 methotrexate sodium 2.5 mg tablet 2.5 mg PO QWEEK 03/19/23 multivitamin (Daily Multi-Vitamin tablet) 1 tab PO DAILY 03/19/23 naproxen 500 mg tablet 500 mg PO Q12H 03/19/23 pantoprazole 40 mg tablet,delayed release 40 mg PO DAILY 03/19/23 potassium chloride 20 mEq tablet,extended release(part/cryst) (Klor-Con M) 20 meq PO BID 03/19/23 tiotropium bromide 2.5 mcg/actuation mist for inhalation (Spiriva Respimat) 2 puff inhalation Q24H 03/19/23 vitamins A,C,Z-jtia-kgnlyx 2,148 mcg-113 mg-45 mg-17.4 mg tablet (PreserVision AREDS) 2 tab PO BID 03/19/23 warfarin 5 mg tablet 5 mg PO .COMPLEX 03/19/23 cholecalciferol (vitamin D3) 25 mcg (1,000 unit) capsule 25 mcg PO DAILY 03/26/23 ciprofloxacin HCl 500 mg tablet 500 mg PO Q12H 03/26/23 dexamethasone 6 mg tablet 6 mg PO DAILY 03/26/23 itraconazole 10 mg/mL oral solution 200 mg PO BID 03/26/23 loperamide 2 mg capsule (Anti-Diarrheal (loperamide)) 4 mg PO TID 03/26/23 metronidazole 500 mg tablet 500 mg PO TID 03/26/23 vitamin A-vitamin C-vit E-min tablet (Ocutabs tablet) 2 tab PO DAILY 03/26/23
== END 2023-03-27 17:25 | disposition home or self-care (01) ==
LOC: ED 12:44 → MS3 15:59
PROVIDERS: Admitting Provider Internal Medicine; Emergency Provider Student in an Organized Health Care Education/Training Program; PCP Internal Medicine; Visit Provider Family Medicine
DX: R62.7 Adult failure to thrive (principal); M06.9 Rheumatoid arthritis, unspecified; K52.9 Noninfective gastroenteritis and colitis, unspecified; R53.81 Other malaise; D72.829 Elevated white blood cell count, unspecified; I10 Essential (primary) hypertension; Z86.16 Personal history of COVID-19; Z79.01 Long term (current) use of 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; R41.0 Disorientation, unspecified; D64.9 Anemia, unspecified; R53.1 Weakness; K21.9 Gastro-esophageal reflux disease without esophagitis; R06.00 Dyspnea, unspecified; B39.9 Histoplasmosis, unspecified; I35.0 Nonrheumatic aortic (valve) stenosis; Z86.711 Personal history of pulmonary embolism; Z79.899 Other long term (current) drug therapy; Z79.51 Long term (current) use of inhaled steroids
CPT/HCPCS: 36415; 71045; 80048; 80053; 81001; 83735; 83880; 84443; 84484; 85025; 85610; 93005; 94640; 94668; 97161; 97166; 99221; 99284; G0378

== ENCOUNTER 2023-03-28 16:31 | Emergency (ER) | payer MEDICARE, SELFPAY ==
[2023-03-28 16:31] VITALS: O2SAT 98
[2023-03-28 16:33] VITALS: BP 140/76; PULSE 82; RESP 16; TEMP 36.3; O2SAT 98; BMI 23.7
--- NOTE | 2023-03-28 17:05 | EDS_ITS ---
HPI History of Present Illness Chief Complaint: Shortness of Breath Detail of Chief Complaint: Bilateral lower extremity swelling with weeping of fluids. 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 States that she came in today she was just recently in the ER in the last 1 to 2 days the listed complaint is shortness of breath she states that she has recurrent lower extremity edema with weeping of fluids. Denies chest pain. States that she has had this before. Prior similar symptoms: Yes Recent Illness/Hospitalization: Yes [facility] Medical History Colitis COPD (chronic obstructive pulmonary disease) DVT (deep venous thrombosis) Former smoker Histoplasmosis Pulmonary embolism Rheumatoid arthritis Home Medications adalimumab 40 mg/0.4 mL subcutaneous pen kit (Humira(CF) Pen) 40 mg subcut Q14D 03/19/23 [History Last Taken Unknown] albuterol sulfate 90 mcg/actuation aerosol inhaler 2 puff inhalation Q4H PRN shortness of breath or wheezing 03/19/23 [History Last Taken Unknown] budesonide-formoterol HFA 160 mcg-4.5 mcg/actuation aerosol inhaler (Symbicort) 2 puff inhalation Q12H 03/19/23 [History Last Taken Unknown] fluticasone propionate 50 mcg/actuation nasal spray,suspension 1 spray intranasal DAILY 03/19/23 [History Last Taken Unknown] gabapentin 300 mg capsule 300 mg PO Q12H 03/19/23 [History Last Taken Unknown] irbesartan 150 mg-hydrochlorothiazide 12.5 mg tablet 1 tab PO DAILY 03/19/23 [History Last Taken Unknown] itraconazole 100 mg capsule 100 mg PO Q8H 03/19/23 [History Last Taken Unknown] leucovorin calcium 5 mg tablet 15 mg PO DAILY 03/19/23 [History Last Taken Unknown] methotrexate sodium 2.5 mg tablet 2.5 mg PO QWEEK 03/19/23 [History Last Taken Unknown] multivitamin (Daily Multi-Vitamin tablet) 1 tab PO DAILY 03/19/23 [History Last Taken Unknown] naproxen 500 mg tablet 500 mg PO Q12H 03/19/23 [History Last Taken Unknown] pantoprazole 40 mg tablet,delayed release 40 mg PO DAILY 03/19/23 [History Last Taken Unknown] potassium chloride 20 mEq tablet,extended release(part/cryst) (Klor-Con M) 20 meq PO BID 03/19/23 [History Last Taken Unknown] tiotropium bromide 2.5 mcg/actuation mist for inhalation (Spiriva Respimat) 2 puff inhalation Q24H 03/19/23 [History Last Taken Unknown] vitamins A,C,W-dwux-qkbmtr 2,148 mcg-113 mg-45 mg-17.4 mg tablet (PreserVision AREDS) 2 tab PO BID 03/19/23 [History Last Taken Unknown] warfarin 5 mg tablet 5 mg PO .COMPLEX 03/19/23 [History Last Taken Unknown] cholecalciferol (vitamin D3) 25 mcg (1,000 unit) capsule 25 mcg PO DAILY 03/26/23 [History Last Taken Unknown] ciprofloxacin HCl 500 mg tablet 500 mg PO Q12H 03/26/23 [History Last Taken Unknown] dexamethasone 6 mg tablet 6 mg PO DAILY 03/26/23 [History Last Taken Unknown] itraconazole 10 mg/mL oral solution 200 mg PO BID 03/26/23 [History Last Taken Unknown] loperamide 2 mg capsule (Anti-Diarrheal (loperamide)) 4 mg PO TID 03/26/23 [History Last Taken Unknown] metronidazole 500 mg tablet 500 mg PO TID 03/26/23 [History Last Taken Unknown] vitamin A-vitamin C-vit E-min tablet (Ocutabs tablet) 2 tab PO DAILY 03/26/23 [History Last Taken Unknown] furosemide 20 mg tablet (Lasix) 20 mg PO DAILY 14 days #14 tabs 03/28/23 [Rx Last Taken Unknown] Allergy/AdvReac Type Severity Reaction Status Date / Time Penicillins Allergy Severe Anaphylaxis Verified 03/28/23 16:32 Surgical History History of embolic filter insertion Hx of foot surgery Social History Smoking Status: Former smoker ROS ROS ED ROS Narrative Denies recent illness. Review of Systems ROS Unobtainable: Denies due to encephalopathy Constitutional Constitutional ED: Denies anorexia Eyes Eyes: Denies blurry vision ENT ENT ED: Denies dental pain Cardiovascular Cardiovascular: Denies clubbing Respiratory/Chest Respiratory/Chest: Denies chest congestion Genitourinary Genitourinary ED: Denies drinking/eating less Musculoskeletal Musculoskeletal: Denies difficulty walking Integumentary Denies change in hair Psychiatric Psychiatric: Denies depression Endocrine Endocrinology: Denies cold intolerance Hematologic/Lymphatic Hematologic/Lymphatic: Denies lymphadenopathy Allergic/Immunologic Allergic/Immunologic ED: Denies mouth swelling EXAM Physical Exam Narrative Exam Narrative: Send 7-year-old female no acute distress. Vital signs stable afebrile. Pulse ox 98% on room air no signs hypoxia. H EENT exam unremarkable. Neck nontender. No lymphadenopathy. Lungs clear to auscultation bilaterally. Heart regular rhythm rate about 80 no murmur. Abdomen soft nontender. Moving all 4 extremities. Bilateral lower extremity edema and weeping of fluids warts all over the hands, sheets in the bed. Calves are nontender. They are equal and symmetrical. Neurologically she is awake and alert. Answer questions following commands. Const Vital Signs: 03/28/23 16:33 03/28/23 16:31 03/28/23 17:03 Temperature 97.3 F L Temperature Source Temporal Pulse Rate 82 Respiratory Rate 16 Respiratory Effort Short of Breath Respiratory Depth Normal Respiratory Pattern Normal Blood Pressure 140/76 H Blood Pressure Mean 97 Pulse Ox 98 Oxygen Delivery Method Room Air Room Air Room Air 03/28/23 18:31 03/28/23 19:00 03/28/23 20:00 Temperature Temperature Source Pulse Rate 87 94 95 Respiratory Rate 16 19 H 19 H Respiratory Effort Respiratory Depth Respiratory Pattern Blood Pressure 127/64 H Blood Pressure Mean 85 Pulse Ox 99 98 99 Oxygen Delivery Method Room Air Room Air Room Air Positive well nourished, well developed, alert, oriented x3, no apparent distre ss, average body habitus and no limitations; Negative for obese, cachectic, contractures or unkempt General Appearance ED: active and well developed; Negative for unkempt, cach ectic or contractures Exam Limitations: no limitations Nutritional Appearance: Negative for cachectic or obese HEENT Reports normocephalic and head/scalp atraumatic normocephalic External Ear: external ears normal Mouth ED: Yes oral and palatal mucosa normal Mouth: oral and palatal mucosa normal Throat: posterior oropharynx normal Eyes PERRL, EOMs intact bilaterally and no scleral icterus Conjunctiva: conjunctiva normal Sclera: sclera normal Cornea: cornea normal Pupil: PERRL EOM: EOM abnormal Neck full ROM, no lymphadenopathy, supple, no meningeal signs and no JVD Lymph Lymphatic: no lymphadenopathy noted; Negative for lymphadenopathy Chest Wall inspection of chest normal Resp normal respiratory effort, normal air movement, no retractions, no use of a ccessory muscles and clear to auscultation bilaterally Effort and Inspection: able to speak in complete sentences Auscultation: clear to auscultation bilaterally Cardio regular rate, regular rhythm, S1 normal heart sound, S2 normal heart sound, no murmurs, no rub and no gallops Rate: regular rate Rhythm: regular rhythm GI normal to inspection, nondistended, normoactive bowel sounds, soft to palpation, non-tender, non-distended and no masses Palpation: soft; Negative for firm, tender or guarding no CVA tenderness Back/Spine no CVA tenderness General Back: Negative for CVA tenderness Extremity no calf tenderness; Negative for normal to inspection or no pedal edema Extremity Narrative: Bilateral pedal edema with weeping of fluid. Neuro oriented x3, CN's II-XII intact bilaterally, moves all extremities and no focal motor deficits Sensorium / Orientation: awake, alert, oriented to person, oriented to place and oriented to time; Negative for orientation impaired Motor Exam: strength 5/5 throughout Psych mental status grossly normal and thought process normal Appearance: Negative for unkempt Attitude: calm, engaged, No paranoid and No withdrawn Activity / Motor Behavior: appropriate eye contact Speech: normal speech Judgement: judgement good Skin no rashes or lesions noted General Skin Exam: no breakdown Lesions: no lesions Rashes: no rashes MDM MDM MDM Narrative Medical decision making narrative: 77-year-old female with lower extremity was weeping edema. She has screening labs being obtained. Repeat exam unchanged. Patient currently tells me she is not on Lasix or any other diuretic. I will put her on Lasix 20 mg a day. Outpatient follow-up with her primary care physician Dr. [facility]. Her labs are basically her baseline and not significantly changed from prior. She meets no criteria for admission at this time. History & Record Review Discussion w/independent historian: Patient Additional record(s) reviewed:: Prior inpatient record Lab Data Attestation: I reviewed the patient's lab results. Lab results narrative: CBC shows a white count of 14.1. H&H 9.6 and 28.8. Consistent with prior blood counts and her history of anemia. Platelets 170. Patient is on Coumadin PTT 32 INR 3.1. Electrolytes show with sodium 131. Gap of 8. BUN 36 creatinine 1. Glucose 113. Troponins 17. BNP 162. Labs: Laboratory Results - last 24 hr 03/28/23 16:37 WBC 14.1 H RBC 3.46 L Hgb 9.6 L Hct 28.8 L MCV 83.2 MCH 27.7 MCHC 33.3 RDW Std Deviation 52.7 H RDW Coeff of Catarino 22.1 H Plt Count 170 MPV 10.3 Immature Gran % (Auto) 2.400 H Neut % (Auto) 80.2 H Lymph % (Auto) 7.4 L Lee % (Auto) 9.8 Eos % (Auto) 0.0 Baso % (Auto) 0.2 Absolute Neuts (auto) 11.3 H Absolute Lymphs (auto) 1.04 Nucleated RBC % 0.1 Differential Comment PT 32.4 H INR 3.1 Sodium 131 L Potassium 4.0 Chloride 98 Carbon Dioxide 25.0 Anion Gap 8 BUN 36 H Creatinine 1.01 Estim Creat Clear Calc 39.81 Est GFR (MDRD) Af Amer 69 Est GFR (MDRD) Non-Af 57 L BUN/Creatinine Ratio 35.6 H Glucose 113 H Calcium 8.5 Troponin I High Sens 17 B-Natriuretic Peptide 162.5 H Radiography Chest X-Ray - ED: 1 View, Read by ED Physician, Read by Radiologist, Heart, Lungs, Mediastinum, Bony Structures, No Acute Disease and Chronic Changes Diagnostic Testing: Clinical Impression(s) from Imaging Studies Chest X-Ray 03/28/23 17:11 IMPRESSION: Possible small left lower lobe or lingular infiltrates Electronically Signed: Ken Christy MD at 18:09 EST , Chest x-ray, portable, single view interpreted by myself and the radiologist. Shows chronic changes no acute process. No significant signs of failure. No obvious pneumonia. No effusions. Rhythm Strip Rhythm Strip: Sinus Rhythm Rate: 81 Ectopy: None EKG Initial EKG: Attestation: I personally reviewed and interpreted this EKG as follows: Interpretation: Sinus Rhythm and No Acute Injury Pattern Comments: Normal sinus rhythm rate 81 no acute signs of NM or ischemia. No significant dysrhythmia. Discharge Plan Triage Chief Complaint: Shortness of Breath ED Provider: Etienne Thacker Dx/Rx/DC Orders Clinical Impression: History of COPD, Chronic anticoagulation, Peripheral edema Instructions: ED Peripheral Edema, Bilateral Prescriptions: New furosemide [Lasix] 20 mg tablet 20 mg PO DAILY 14 Days Qty: 14 0RF No Action gabapentin 300 mg capsule 300 mg PO Q12H albuterol sulfate 90 mcg/actuation HFA aerosol inhaler 2 puff INHALATION Q4H PRN (Reason: shortness of breath or wheezing) fluticasone propionate 50 mcg/actuation spray,suspension 1 spray INTRANASAL DAILY budesonide-formoterol [Symbicort] 160-4.5 mcg/actuation HFA aerosol inhaler 2 puff INHALATION Q12H Humira(CF) Pen 40 mg/0.4 mL pen injector kit 40 mg SUBCUT Q14D Hold Instructions: Resume on 04/24/23. HOLD UNTIL ALLOWED TO RESTART GIVEN RECENT DISSEMINATED HISTOPLASMOSIS AND COVID. irbesartan-hydrochlorothiazide 150-12.5 mg tablet 1 tab PO DAILY Hold Instructions: Resume on 04/24/23. May resume if appropriate and repeat BP assessments and renal function normalized upon PCP re-evaluation at follow- up. itraconazole 100 mg capsule 100 mg PO Q8H Hold Instructions: Ordered naproxen 500 mg tablet 500 mg PO Q12H pantoprazole 40 mg tablet,delayed release (DR/EC) 40 mg PO DAILY warfarin 5 mg tablet 5 mg PO .COMPLEX Rx Instructions: 5 mg orally Sunday, Sunday; 7.5 mg orally Sunday, , Sunday, Sunday, Sunday Spiriva Respimat 2.5 mcg/actuation mist 2 puff INHALATION Q24H leucovorin calcium 5 mg tablet 15 mg PO DAILY Hold Instructions: Resume on 04/24/23. HOLD UNTIL ALLOWED TO RESTART GIVEN RECENT DISSEMINATED HISTOPLASMOSIS AND COVID. methotrexate sodium 2.5 mg tablet 2.5 mg PO QWEEK Hold Instructions: Resume on 04/24/23. HOLD UNTIL ALLOWED TO RESTART GIVEN RECENT DISSEMINATED HISTOPLASMOSIS AND COVID. Rx Instructions: Take every Sunday; Patient takes 2 tablets in AM and 1 tablet in PM potassium chloride [Klor-Con M20] 20 mEq tablet,ER particles/crystals 20 meq PO BID PreserVision AREDS 2,148 mcg-113 mg-45 mg-17.4mg tablet 2 tab PO BID Rx Instructions: administer with AM and PM meals multivitamin [Daily Multi-Vitamin] Tablet 1 tab PO DAILY ciprofloxacin HCl 500 mg tablet 500 mg PO Q12H dexamethasone 6 mg tablet 6 mg PO DAILY itraconazole 10 mg/mL solution 200 mg PO BID Rx Instructions: administer on an empty stomach loperamide [Anti-Diarrheal (loperamide)] 2 mg capsule 4 mg PO TID metronidazole 500 mg tablet 500 mg PO TID cholecalciferol (vitamin D3) 25 mcg (1,000 unit) capsule 25 mcg PO DAILY Ocutabs Tablet 2 tab PO DAILY Primary Care Provider: Deyanira Pak Referrals: Deyanira Pak MD [Primary Care Provider] - As soon as possible Activity Restrictions/Additional Instructions: Follow-up with your primary care physician next several days. We will start you on the diuretic Lasix 20 mg a day for the next 14 days. This should make you pee a lot and help get rid of the fluid in your legs. I would take it in the morning because you take it before you go to bed at night you will be up all night urinating. Watch your blood pressure because this medication can you affect your blood pressure if your blood pressure is consistently below 110 the higher or systolic number then stop the medication. Disposition Disposition: Home, Self Care
[2023-03-28 17:11] LABS: Absolute Lymphocyte Count 1.04 X10^3/uL (0.83-4.51); Absolute Neutrophil Count 11.3 X10^3/uL (2.0-7.7); Basophil# 0.03 X10^3/uL; Basophil% 0.2 % (0-1); Hematocrit 28.8 % (37-47); Hemoglobin 9.6 g/dL (12.0-15.0); Lymphocyte # 1.04 X10^3/ul (0.83-4.51); Lymphocyte % 7.4 % (19-41); Mean Corp Hgb Conc 33.3 g/dL (32-36); Mean Corpuscular Hgb 27.7 pg (27.0-32.0); Mean Corpuscular Volume 83.2 fL (81-99); Mean Platelet Vol. 10.3 fl (6.2-12.0); Monocyte# 1.38 X10^3/uL; Monocyte% 9.8 % (0-10); NRBC Flagged by Analyzer 0.1 % (0-5); Neutrophil # 11.28 X10^3/uL (2.7-7.7); Neutrophil % 80.2 % (47-70); POSITIVE MORPHOLOGY YES; Platelet Count 170 K/mm3 (150-450); RBC Distribution Width CV 22.1 % (11.6-14.6); RBC Distribution Width SD 52.7 fl (35.1-43.9); Red Blood Count 3.46 M/mm3 (4.2-5.4); White Blood Count 14.1 K/mm3 (4.4-11.0)
--- NOTE | 2023-03-28 17:11 | RAD_ITS ---
STUDY: X-RAY CHEST REASON FOR EXAM: Female, 77 years old. chest pain TECHNIQUE: Single frontal view of the chest. COMPARISON: Chest x-ray from the 2023 FINDINGS: Possible small left lower lobe or lingular infiltrate. There is no demonstrated pleural abnormality. Normal size heart. Normal mediastinum and vivien. Normal visualized pulmonary arteries. Normal visualized aortic arch and descending thoracic aorta. Normal visualized thoracic spine. Normal visualized ribs, clavicles, and shoulders. There is no demonstrated abnormality of the visualized soft tissue structures of the upper abdomen. IVC filter noted. RAD/Chest 1 View (Portable) IMPRESSION: Possible small left lower lobe or lingular infiltrates Electronically Signed: Ken Christy MD at 18:09 EST ,
[2023-03-28 17:12] LABS: Differential Indicated SCAN CRITERIA MET
[2023-03-28 17:38] LABS: BNP,B-Type NATRIURETIC PEPTIDE 162.5 pg/mL (0-100)
[2023-03-28 17:39] LABS: Anion Gap 8 (5-15); BUN 36 mg/dL (7-18); BUN/Creat Ratio 35.6 RATIO (10-20); Calcium,Total 8.5 mg/dL (8.5-10.1); Chloride 98 mmol/L (98-107); Creatinine, Serum 1.01 mg/dL (0.55-1.02); EST Glomerular Filtration Rate 57 mL/min (>60); Est Glom Filt Rate - Afr Amer 69 mL/min (>60); Estimated Creatinine Clearance 39.81 ml/min; Glucose 113 mg/dL (74-106); Sodium Level 131 mmol/L (136-145); Troponin-I HS 17 pg/mL (3.0-54.0)
[2023-03-28 17:59] LABS: International Normalized Ratio 3.1; Prothrombin Time (Protime)PT. 32.4 SECONDS (11.7-14.9)
[2023-03-28 18:31] VITALS: BP 127/64; PULSE 87; RESP 16; O2SAT 99
[2023-03-28 19:00] VITALS: PULSE 94; RESP 19; O2SAT 98
[2023-03-28 20:00] VITALS: PULSE 95; RESP 19; O2SAT 99
[2023-03-28 20:54] VITALS: BP 121/79; PULSE 91; RESP 19; O2SAT 97
== END 2023-03-28 20:55 | disposition home or self-care (01) ==
PROVIDERS: Emergency Provider Emergency Medicine; PCP Internal Medicine; Visit Provider Emergency Medicine
DX: J44.9 Chronic obstructive pulmonary disease, unspecified (principal); M06.9 Rheumatoid arthritis, unspecified; R60.0 Localized edema; Z87.891 Personal history of nicotine dependence; Z86.718 Personal history of other venous thrombosis and embolism; Z79.01 Long term (current) use of 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; Z86.711 Personal history of pulmonary embolism; Z79.899 Other long term (current) drug therapy; Z79.51 Long term (current) use of inhaled steroids; R06.02 Shortness of breath
CPT/HCPCS: 99284; 71045; 80048; 83880; 84484; 85025; 85610; 93005; A4216

== ENCOUNTER 2023-03-31 16:48 | Inpatient (IN) | payer MEDICARE, SELFPAY ==
[2023-03-31 16:48] VITALS: BP 105/46; PULSE 86; RESP 17; TEMP 36.8; O2SAT 100; BMI 23.4
--- NOTE | 2023-03-31 17:47 | EX.ED.DYSGE1 ---
HPI <MEENU Leger - Last Filed: 03/31/23 19:55> History of Present Illness Chief Complaint: Edema Narrative Narrative: Patient is a 77-year-old female with a long history of lower leg edema, history of COPD, patient is on Coumadin, histoplasmosis, presenting to the [facility] apartment for failure to thrive, worsening swelling to bilateral lower extremities, right leg redness. Patient was recently admitted March 26, then released home. Patient is struggling at home to take care of herself. Patient fell today could not get up, and was on the ground for multiple hours. Patient states that she has worsening pain to her right leg, she is having difficulty with her medications. Patient states that she feels like she might need admitted for further workup and as well to go to a facility for rehab. PFS <MEENU Leger - Last Filed: 03/31/23 19:55> [facility] Medical History Colitis COPD (chronic obstructive pulmonary disease) DVT (deep venous thrombosis) Former smoker Histoplasmosis Pulmonary embolism Rheumatoid arthritis Home Medications adalimumab 40 mg/0.4 mL subcutaneous pen kit (Humira(CF) Pen) 40 mg subcut Q14D 03/19/23 [History Last Taken Unknown] albuterol sulfate 90 mcg/actuation aerosol inhaler 2 puff inhalation Q4H PRN shortness of breath or wheezing 03/19/23 [History Last Taken Unknown] budesonide-formoterol HFA 160 mcg-4.5 mcg/actuation aerosol inhaler (Symbicort) 2 puff inhalation Q12H 03/19/23 [History Last Taken Unknown] fluticasone propionate 50 mcg/actuation nasal spray,suspension 1 spray intranasal DAILY 03/19/23 [History Last Taken Unknown] gabapentin 300 mg capsule 300 mg PO Q12H 03/19/23 [History Last Taken Unknown] irbesartan 150 mg-hydrochlorothiazide 12.5 mg tablet 1 tab PO DAILY 03/19/23 [History Last Taken Unknown] itraconazole 100 mg capsule 100 mg PO Q8H 03/19/23 [History Last Taken Unknown] leucovorin calcium 5 mg tablet 15 mg PO DAILY 03/19/23 [History Last Taken Unknown] methotrexate sodium 2.5 mg tablet 2.5 mg PO QWEEK 03/19/23 [History Last Taken Unknown] multivitamin (Daily Multi-Vitamin tablet) 1 tab PO DAILY 03/19/23 [History Last Taken Unknown] naproxen 500 mg tablet 500 mg PO Q12H 03/19/23 [History Last Taken Unknown] pantoprazole 40 mg tablet,delayed release 40 mg PO DAILY 03/19/23 [History Last Taken Unknown] potassium chloride 20 mEq tablet,extended release(part/cryst) (Klor-Con M) 20 meq PO BID 03/19/23 [History Last Taken Unknown] tiotropium bromide 2.5 mcg/actuation mist for inhalation (Spiriva Respimat) 2 puff inhalation Q24H 03/19/23 [History Last Taken Unknown] vitamins A,C,R-opyo-wxoqnp 2,148 mcg-113 mg-45 mg-17.4 mg tablet (PreserVision AREDS) 2 tab PO BID 03/19/23 [History Last Taken Unknown] warfarin 5 mg tablet 5 mg PO .COMPLEX 03/19/23 [History Last Taken Unknown] cholecalciferol (vitamin D3) 25 mcg (1,000 unit) capsule 25 mcg PO DAILY 03/26/23 [History Last Taken Unknown] ciprofloxacin HCl 500 mg tablet 500 mg PO Q12H 03/26/23 [History Last Taken Unknown] dexamethasone 6 mg tablet 6 mg PO DAILY 03/26/23 [History Last Taken Unknown] itraconazole 10 mg/mL oral solution 200 mg PO BID 03/26/23 [History Last Taken Unknown] loperamide 2 mg capsule (Anti-Diarrheal (loperamide)) 4 mg PO TID 03/26/23 [History Last Taken Unknown] metronidazole 500 mg tablet 500 mg PO TID 03/26/23 [History Last Taken Unknown] vitamin A-vitamin C-vit E-min tablet (Ocutabs tablet) 2 tab PO DAILY 03/26/23 [History Last Taken Unknown] furosemide 20 mg tablet (Lasix) 20 mg PO DAILY 14 days #14 tabs 03/28/23 [Rx Last Taken Unknown] Allergy/AdvReac Type Severity Reaction Status Date / Time Penicillins Allergy Severe Anaphylaxis Verified 03/28/23 16:32 Surgical History History of embolic filter insertion Hx of foot surgery Social History Smoking Status: Former smoker ROS <MEENU Leger - Last Filed: 03/31/23 19:55> ROS ED ROS Narrative Constitutional: No fever, no chills. Positive for weakness HEENT: No sore throat. No neck pain. No loss of vision. No rhinorrhea. Cardiovascular: No chest pain. No palpitations. No pedal edema. Respiratory: No cough, no shortness of breath. Abdominal: No abdominal pain. No nausea. No vomiting. Genitourinary: No dysuria. No hematuria. Musculoskeletal: No myalgias. No arthralgias. Positive for bilateral lower leg edema, positive for right leg redness and pain Neurologic: No headaches. No dizziness. No lightheadedness. Skin: No rash. No change in color. Psychiatric: No depression. No anxiety. EXAM <MEENU Leger - Last Filed: 03/31/23 19:55> Physical Exam Narrative Exam Narrative: Afebrile. Vital signs noted. HEENT: Normocephalic. Atraumatic. PERRL, EOMI. Neck soft and supple. No point tenderness or step off. Patient is oral mucosa was dry. Cardiovascular: Regular rate and rhythm. No murmurs, rubs, or gallops appreciated. Respiratory: No tachypnea. Lungs clear to auscultation bilaterally. Gastrointestinal: Abdomen soft, nontender, with normoactive bowel sounds. No rebound or guarding. Neurological: Awake. Alert. Nonfocal, nonlateralizing. Skin: No rash. Normal color. No pallor. Musculoskeletal: Patient has +2-3 pitting edema to bilateral feet, patient's right leg is significantly more erythematous than the right. The right leg and foot has some redness, warmth, pain on palpation. This is concerning for cellulitis.. Full range of motion extremities. Const Vital Signs: 03/31/23 16:48 03/31/23 17:01 Temperature 98.3 F Temperature Source Oral Pulse Rate 86 Respiratory Rate 17 Respiratory Pattern Normal Blood Pressure 105/46 L Blood Pressure Mean 65 Pulse Ox 100 Positive well nourished and well developed General Appearance ED: well developed <Dr. Ryan Cornejo DO - Last Filed: 03/31/23 20:00> Physical Exam Const Vital Signs: 03/31/23 16:48 03/31/23 17:01 Temperature 98.3 F Temperature Source Oral Pulse Rate 86 Respiratory Rate 17 Respiratory Pattern Normal Blood Pressure 105/46 L Blood Pressure Mean 65 Pulse Ox 100 [facility] <Frederick AlmazanMEENU - Last Filed: 03/31/23 19:55> [facility] Lab Data Labs: Laboratory Results - last 24 hr 03/31/23 18:12 WBC 19.4 H RBC 2.87 L Hgb 8.3 L Hct 24.9 L MCV 86.8 MCH 28.9 MCHC 33.3 RDW Std Deviation 75.1 H RDW Coeff of Catarino 24.1 H Plt Count 95 L MPV 10.4 Immature Gran % (Auto) 1.000 H Neut % (Auto) 90.8 H Lymph % (Auto) 3.0 L Merrick % (Auto) 5.0 Eos % (Auto) 0.1 Baso % (Auto) 0.1 Absolute Neuts (auto) 17.6 H Absolute Lymphs (auto) 0.59 L Nucleated RBC % 0 Differential Comment SCANNED Platelet Estimate MOD DEC Anisocytosis 2+ Microcytosis 1+ Macrocytosis 1+ PT 16.0 H INR 1.3 Sodium 134 L Potassium 3.2 L Chloride 99 Carbon Dioxide 29.0 Anion Gap 6 BUN 31 H Creatinine 0.75 Estim Creat Clear Calc 50.26 Est GFR (MDRD) Af Amer 96 Est GFR (MDRD) Non-Af 80 BUN/Creatinine Ratio 41.2 H Glucose 108 H Lactic Acid 1.4 Calcium 7.8 L Total Creatine Kinase 125 B-Natriuretic Peptide 97.8 Radiography Diagnostic Testing: Clinical Impression(s) from Imaging Studies Tibia/Fibula X-Ray 03/31/23 17:49 IMPRESSION: No acute radiographic abnormalities. Electronically Signed: Franko Galarza MD at 19:30 EST , Chest X-Ray 03/31/23 18:32 IMPRESSION: No change from prior study. Electronically Signed: Franko Galarza MD at 19:29 EST , Treatment and Re-Evaluation :: Patient appears to be in no obvious respiratory distress, patient's vital signs are stable, patient is alert and orient x 4. Presenting to the emerged department for worsening weakness, failure to thrive, pain to the right leg. Differential diagnosis includes sepsis, failure to thrive, rhabdomyolysis, cellulitis of the right lower extremity. Patient has low probability of any DVT secondary to being on Coumadin. Patient will receive basic laboratory values including lactic acid as well as CPK. X-rays of the chest and tibia-fibula will be completed. After talking the patient, the plan will be to admit the patient for failure to thrive. I will also treat the patient concerning for any cellulitis. Patient's laboratory values showed a leukocytosis with a white blood count of 19.4, hemoglobin is 8.3, patient is chronically anemic. PT is 16 with an INR 1.3, this is subtherapeutic for the patient is supposed to be on Coumadin. Patient's potassium 3.2, kidney function within normal limits. BNP is negative, patient's CK was unremarkable. Patient's chest x-ray interpreted by ER physician shows no change, patient's tibia-fibula was unremarkable. Patient was started on IV clindamycin secondary to the anaphylactic reaction to penicillin. Patient will need to be admitted to the hospital for failure to thrive, right lower leg cellulitis. I discussed this with the hospitalist. <Dr. Ryan Cornejo, DO - Last Filed: 03/31/23 20:00> [facility] Narrative Medical decision making narrative: Patient appears to be in no obvious respiratory distress, patient's vital signs are stable, patient is alert and orient x 4. Presenting to the emerged department for worsening weakness, failure to thrive, pain to the right leg. Differential diagnosis includes sepsis, failure to thrive, rhabdomyolysis, cellulitis of the right lower extremity. Patient has low probability of any DVT secondary to being on Coumadin. Patient will receive basic laboratory values including lactic acid as well as CPK. X-rays of the chest and tibia-fibula will be completed. After talking the patient, the plan will be to admit the patient for failure to thrive. I will also treat the patient concerning for any cellulitis. Patient's laboratory values showed a leukocytosis with a white blood count of 19.4, hemoglobin is 8.3, patient is chronically anemic. PT is 16 with an INR 1.3, this is subtherapeutic for the patient is supposed to be on Coumadin. Patient's potassium 3.2, kidney function within normal limits. BNP is negative, patient's CK was unremarkable. Patient's chest x-ray interpreted by ER physician shows no change, patient's tibia-fibula was unremarkable. Patient was started on IV clindamycin secondary to the anaphylactic reaction to penicillin. Patient will need to be admitted to the hospital for failure to thrive, right lower leg cellulitis. I discussed this with the hospitalist. This patient was seen with a PA/OIL REFINERY PROCESS TECHNICIAN Individually assessed they patient including history and physical. I have reviewed everything on the chart that is available and agree with the documentation provided by the PA/OIL REFINERY PROCESS TECHNICIAN including discussion about the assessment, treatment plan, discussion, and return precautions. 37-year-old female presenting with weakness. She has been falling at home. She states spent a long time on the toilet today and then when she got up and walked she fell. She states that she left her door locked for her friend so she can get in today. Differential as above. Lab workup ultimately shows a leukocytosis. She has cellulitis on the right lower extremity. I do not believe she has a DVT as she has been therapeutic up until today on her INR. Chest x-ray my interpretation shows no acute process. Radiologist interprets and agrees. Right tib-fib x-ray also negative. Cover the patient with clindamycin for cellulitis given her penicillin allergy. Patient states she is weak and needs placement. Patient for rehab. Will admit the patient. Impression: 1. right leg cellulitis 2. Debility 3. Falls 4. Leukocytosis Lab Data Attestation: I reviewed the patient's lab results. Labs: Laboratory Results - last 24 hr 03/31/23 18:12 WBC 19.4 H RBC 2.87 L Hgb 8.3 L Hct 24.9 L MCV 86.8 MCH 28.9 MCHC 33.3 RDW Std Deviation 75.1 H RDW Coeff of Catraino 24.1 H Plt Count 95 L MPV 10.4 Immature Gran % (Auto) 1.000 H Neut % (Auto) 90.8 H Lymph % (Auto) 3.0 L Merrick % (Auto) 5.0 Eos % (Auto) 0.1 Baso % (Auto) 0.1 Absolute Neuts (auto) 17.6 H Absolute Lymphs (auto) 0.59 L Nucleated RBC % 0 Differential Comment SCANNED Platelet Estimate MOD DEC Anisocytosis 2+ Microcytosis 1+ Macrocytosis 1+ PT 16.0 H INR 1.3 Sodium 134 L Potassium 3.2 L Chloride 99 Carbon Dioxide 29.0 Anion Gap 6 BUN 31 H Creatinine 0.75 Estim Creat Clear Calc 50.26 Est GFR (MDRD) Af Amer 96 Est GFR (MDRD) Non-Af 80 BUN/Creatinine Ratio 41.2 H Glucose 108 H Lactic Acid 1.4 Calcium 7.8 L Total Creatine Kinase 125 B-Natriuretic Peptide 97.8 Radiography Diagnostic Testing: Clinical Impression(s) from Imaging Studies Tibia/Fibula X-Ray 03/31/23 17:49 IMPRESSION: No acute radiographic abnormalities. Electronically Signed: Franko Galarza MD at 19:30 EST , Chest X-Ray 03/31/23 18:32 IMPRESSION: No change from prior study. Electronically Signed: Franko Galarza MD at 19:29 EST , Discharge Plan Dx/Rx/DC Orders Clinical Impression: Leg edema, Cellulitis, Weakness, Adult failure to thrive Disposition Disposition: [facility]
--- NOTE | 2023-03-31 17:49 | RAD_ITS ---
INDICATION: swelling EXAMINATION/TECHNIQUE: X-RAY - RIGHT XR Tibia/Fibula 2 Views COMPARISON: None. FINDINGS: No acute fracture or malalignment. No blastic or lytic lesions. Scattered degenerative changes. The soft tissues are unremarkable. RAD/Tibia & Fibula 2 Views IMPRESSION: No acute radiographic abnormalities. Electronically Signed: Franko Galarza MD at 19:30 EST ,
--- OUTSIDE RECORDS SUMMARY | 2023-03-31 17:58 | XMS RPT_ITS | CCD ---
Author Name Unknown Address [id number] [place] [address] Organization [facility] Care Team Providers Care Education Program Coordinator Name Role Phone Mykel Santamaria Unavailable Unavailable Mykel Santamaria Unavailable Unavailable UNKNOWN, REFERR Unavailable Unavailable Will Hurley Attending Unavailable PROVIDER, UNKNOWN Referring Unavailable No, PCP Primary Care Unavailable Claudine Durán MD Primary Care Provider Will Hurley Unavailable Gold Colón RN Unavailable UnavailClaudine Cannon MD Primary Care Provider Will Hurley Unavailable Gold Colón RN Unavailable UnavailWill Vaz Unavailable [phone] Lulú Ramos RN Unavailable Gold Colón RN Unavailable UnavailClaudine Cannon MD Primary Care Provider Will Hurley Unavailable Rachel RN, Lulú Unavailable [phone] Rachel RN, Lulú Unavailable [phone] Paul RN, Ilda Unavailable Paul RN, Ilda Unavailable Rachel RN, Lulú Unavailable ADRI ZARAGOZA Referring Unavailable CLAUDINE DURÁN Primary Care Unavailable FLORENCE TERRY Referring Unavailable CLAUDINE DURÁN Primary Care Unavailable FLORENCE TERRY Referring Unavailable FLORENCE TERRY Attending Unavailable TALAMPAS, CLAUDINE D Primary Care Unavailable TALAMPAS, CLAUDINE D Primary Care Unavailable TALAMPAS, CLAUDINE D Primary Care Unavailable TALAMPAS, CLAUDINE D Primary Care Unavailable TALAMPAS, CLAUDINE D Primary Care Unavailable TALAMPAS, CLAUDINE D Primary Care Unavailable CARIASJIMBO Referring Unavailable TALAMPAS, CLAUDINE D Primary Care [...] TALAMPAS, CLAUDINE D Primary Care Unavailable TALAMPAS, LCAUDINE D Primary Care Unavailable TALAMPAS, CLAUDINE D [...] Primary Care Unavailable RACHELLE LAI Referring Unavailable TALAMPAS, CLAUDINE D Primary Care Unavailable TALAMPAS, CLAUDINE D Primary Care Unavailable Lynne Maynard RN Unavailable Unavailable GENO GRIFFITHS Consulting Unavailable MICHAEL LUJAN Admitting Unavailable TALAMPAS, CLAUDINE D Primary Care Unavailable SHARAN RIVAS Attending Unavailable Allergies Allergy Classification Reported Allergen(s) Allergy Type Date of Onset Reaction(s) Facility (20 sources) Penicillins; Translations: [PENICILLINS] Propensity to adverse reactions (disorder) 5 [facility] Repository Medications Current Medications Medication Drug Class(es) Dates Sig (Normalized) Sig (Original) ciprofloxacin 500 mg oral tablet (1 source) Quinolone Antimicrobial Start: 03-25-2023 End: 03-27-2023 take 1 tablet by mouth every twelve hours in the morning, then take 6 tablets by mouth in the evening ciprofloxacin HCl (CIPRO) 500 mg tablet Take 1 tablet by mouth every 12 hours at 6 am and 6 pm for 3 doses. 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; Translations: [...] pathological fracture] 11-09-2022 Chronic Other gastrointestinal disorders (2 sources) Pneumatosis cystoides intestinalis; Translations: [Other specified diseases [...] lung field] Episodic Other lower respiratory disease (2 sources) Hemoptysis; Translations: [Hemoptysis] Onset: 4 03-23-2023 Episodic [...] conditions (not mental disorders or infectious disease) (14 sources) Patient encounter status; Translations: [Encounter for screening mammogram for malignant neoplasm of breast] Onset: 3 Episodic Other skin disorders (1 source) Dystrophia unguium; Translations: [Nail dystrophy] Episodic Other upper respiratory disease (1 source) Bronchospasm; Translations: [Acute bronchospasm] Episodic Other upper respiratory infections (1 source) Chronic sinusitis; Translations: [Chronic sinusitis, unspecified] Chronic Residual codes; unclassified (2 sources) History of immunosuppressive therapy; Translations: [Personal history [...] Translations: [Acute cough] Onset: 3 Viral infection (3 sources) Verruca vulgaris; Translations: [Other viral warts] [...] sources) Long-term current use of anticoagulant; Translations: [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] Onset: 04-01-2009 12-10-2014 Episodic Other aftercare (1 source) 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; Translations: [Chronic anticoagulation] [...] 10:36-0500 Body temperature 98.6 [degF] Adri Zaragoza APRN.CNP Work Phone: [facility] 02-07-2023 10:36-0500 Body weight 59.69 kg Adri Zaragoza APRN.CNP Work Phone: [facility] 02-07-2023 10:36-0500 Diastolic blood pressure 82 mm[Hg] Adri Zaragoza APRN.CNP Work Phone: [facility] 02-07-2023 10:36-0500 Heart rate 87 /min Adri Zaragoza APRN.CNP Work Phone: [facility] 02-07-2023 10:36-0500 Respiratory rate 18 /min Adri Callow DISABILITY LIAISON OFFICER.RESEARCH LABORATORY MANAGER Work Phone: [facility] 02-07-2023 10:36-0500 SaO2% (BldA) [Mass fraction] 98 % Adri Callow DISABILITY LIAISON OFFICER.RESEARCH LABORATORY MANAGER Work Phone: [facility] 02-07-2023 10:36-0500 Systolic blood pressure 134 mm[Hg] Adri Callow DISABILITY LIAISON OFFICER.RESEARCH LABORATORY MANAGER Work Phone: [facility] 01-04-2023 10:33-0500 Body weight 58.06 kg Jimbo Carias DISABILITY LIAISON OFFICER.MACHINE BOOKKEEPER Work Phone: [facility] 01-04-2023 10:33-0500 Diastolic blood pressure 75 mm[Hg] Jimbo Carias DISABILITY LIAISON OFFICER.MACHINE BOOKKEEPER Work Phone: [facility] 01-04-2023 10:33-0500 Heart rate 77 /min Jimbo Carias DISABILITY LIAISON OFFICER.MACHINE BOOKKEEPER Work Phone: [facility] 01-04-2023 10:33-0500 Respiratory rate 16 /min Jimbo Carias DISABILITY LIAISON OFFICER.MACHINE BOOKKEEPER Work Phone: [facility] 01-04-2023 10:33-0500 Systolic blood pressure 128 mm[Hg] Jimbo Carias DISABILITY LIAISON OFFICER.MACHINE BOOKKEEPER Work Phone: [facility] 10-27-2022 09:03-0400 Body weight 59.42 kg Jimbo Carias DISABILITY LIAISON OFFICER.MACHINE BOOKKEEPER Work Phone: [facility] 10-27-2022 09:03-0400 Diastolic blood pressure 66 mm[Hg] Jimbo Carias DISABILITY LIAISON OFFICER.MACHINE BOOKKEEPER Work Phone: [facility] 10-27-2022 09:03-0400 Heart rate 76 /min Jimbo Carias DISABILITY LIAISON OFFICER.MACHINE BOOKKEEPER Work Phone: [facility] 10-27-2022 09:03-0400 Respiratory rate 16 /min Jimbo Carias DISABILITY LIAISON OFFICER.MACHINE BOOKKEEPER Work Phone: [facility] 10-27-2022 09:03-0400 Systolic blood pressure 119 mm[Hg] Jimbo Carias DISABILITY LIAISON OFFICER.MACHINE BOOKKEEPER Work Phone: [facility] 08-29-2022 09:26-0400 Body height 162.6 cm Rachelleiván Lai DISABILITY LIAISON OFFICER.RESEARCH LABORATORY MANAGER Work Phone: [facility] 08-29-2022 09:26-0400 Body weight 58.51 kg Rachelle Eris DISABILITY LIAISON OFFICER.RESEARCH LABORATORY MANAGER Work Phone: [facility] 08-29-2022 09:26-0400 Diastolic blood pressure 78 mm[Hg] Rachelleiván Lai DISABILITY LIAISON OFFICER.RESEARCH LABORATORY MANAGER Work Phone: [facility] 08-29-2022 09:26-0400 Heart rate 75 /min Rachelle Lai DISABILITY LIAISON OFFICER.RESEARCH LABORATORY MANAGER Work Phone: [facility] 08-29-2022 09:26-0400 SaO2% (BldA) [Mass fraction] 98 % Rachelleiván Lai DISABILITY LIAISON OFFICER.RESEARCH LABORATORY MANAGER Work Phone: [facility] 08-29-2022 09:26-0400 Systolic blood pressure 142 mm[Hg] Rachelle Eris DISABILITY LIAISON OFFICER.RESEARCH LABORATORY MANAGER Work Phone: [facility] 07-20-2022 09:28-0400 Body weight 58.06 kg Florence Terry MD Work Phone: [facility] 07-20-2022 09:28-0400 Diastolic blood pressure 72 mm[Hg] Florence Terry MD Work Phone: [facility] 07-20-2022 09:28-0400 Heart rate 50 /min Florence Terry MD Work Phone: [facility] 07-20-2022 09:28-0400 Respiratory rate 17 /min Florence Terry MD Work Phone: [facility] 07-20-2022 09:28-0400 SaO2% (BldA) [Mass fraction] 100 % Florence Terry MD Work Phone: [facility] 07-20-2022 09:28-0400 Systolic blood pressure 122 mm[Hg] Florence Terry MD Work Phone: [facility] 03-13-2022 10:13-0500 Body temperature 96.69 [degF] Claudine Durán MD Work Phone: [facility] 03-13-2022 10:13-0500 Body weight 59.56 kg Claudine Durán MD Work Phone: [facility] 03-13-2022 10:13-0500 Diastolic blood pressure 68 mm[Hg] Claudine Durán MD Work Phone: [facility] 03-13-2022 10:13-0500 Heart rate 75 /min Claudine Durán MD Work Phone: [facility] 03-13-2022 10:13-0500 Respiratory rate 18 /min Claudine Durán MD Work Phone: [facility] 03-13-2022 10:13-0500 SaO2% (BldA) [Mass fraction] 100 % Claudine Durán MD Work Phone: [facility] 03-13-2022 10:13-0500 Systolic blood pressure 112 mm[Hg] Claudine Durán MD Work Phone: [facility] 11-29-2021 10:07-0400 Body weight 58.51 kg Florence Terry MD Work Phone: [facility] 11-29-2021 10:07-0400 Diastolic blood pressure 76 mm[Hg] Florence Terry MD Work Phone: [facility] 11-29-2021 10:07-0400 Heart rate 92 /min Florence Terry MD Work Phone: [facility] 11-29-2021 10:07-0400 Respiratory rate 18 /min Florence Terry MD Work Phone: [facility] 11-29-2021 10:07-0400 SaO2% (BldA) [Mass fraction] 97 % Florence Terry MD Work Phone: [facility] 11-29-2021 10:07-0400 Systolic blood pressure 122 mm[Hg] Florence Terry MD Work Phone: [facility] 11-10-2021 09:220400 Body weight 60.33 kg Jimbo Carias DISABILITY LIAISON OFFICER.MACHINE BOOKKEEPER Work Phone: [facility] 11-10-2021 09:22-0400 Diastolic blood pressure 80 mm[Hg] Jimbo Carias DISABILITY LIAISON OFFICER.MACHINE BOOKKEEPER Work Phone: [facility] 11-10-2021 09:22-0400 Heart rate 76 /min Jimbo Carias DISABILITY LIAISON OFFICER.MACHINE BOOKKEEPER Work Phone: [facility] 11-10-2021 09:22-0400 Respiratory rate 16 /min Jimbo Carias DISABILITY LIAISON OFFICER.MACHINE BOOKKEEPER Work Phone: [facility] 11-10-2021 09:22-0400 Systolic blood pressure 152 mm[Hg] Jimbo Carias DISABILITY LIAISON OFFICER.MACHINE BOOKKEEPER Work Phone: [facility] 09-20-2021 13:45-0400 Body weight 58.51 kg Jimbo Carias DISABILITY LIAISON OFFICER.MACHINE BOOKKEEPER Work Phone: [facility] 09-20-2021 13:45-0400 Diastolic blood pressure 64 mm[Hg] Jimbo Carias DISABILITY LIAISON OFFICER.MACHINE BOOKKEEPER Work Phone: [facility] 09-20-2021 13:45-0400 Heart rate 85 /min Jimbo Carias DISABILITY LIAISON OFFICER.MACHINE BOOKKEEPER Work Phone: [facility] 09-20-2021 13:45-0400 SaO2% (BldA) [Mass fraction] 96 % Jimbo Carias DISABILITY LIAISON OFFICER.MACHINE BOOKKEEPER Work Phone: [facility] 09-20-2021 13:45-0400 Systolic blood pressure 128 mm[Hg] Jimbo Carias DISABILITY LIAISON OFFICER.MACHINE BOOKKEEPER Work Phone: [facility] 08-12-2021 11:01-0400 Body height 162.6 cm William Ambriz DO Work Phone: [facility] 08-12-2021 11:01-0400 Body weight 59.42 kg William Ambriz DO Work Phone: [facility] 08-12-2021 11:01-0400 Diastolic blood pressure 74 mm[Hg] William Ambriz DO Work Phone: [facility] 08-12-2021 11:01-0400 Heart rate 72 /min William Ambriz DO Work Phone: [facility] 08-12-2021 11:01-0400 SaO2% (BldA) [Mass fraction] 99 % William Ambriz DO Work Phone: [facility] 08-12-2021 11:01-0400 Systolic blood pressure 130 mm[Hg] William Ambriz DO Work Phone: [facility] 07-11-2021 08:10-0400 Body weight 58.06 kg Claudine Durán MD Work Phone: [facility] 07-11-2021 08:10-0400 Diastolic blood pressure 74 mm[Hg] Claudine Durán MD Work Phone: [facility] 07-11-2021 08:10-0400 Heart rate 76 /min Claudine Durán MD Work Phone: [facility] 07-11-2021 08:10-0400 Systolic blood pressure 122 mm[Hg] Claudine Durán MD Work Phone: [facility] 2021 14:57-0400 Body height 162.6 cm Julio Andujar MD Work Phone: [facility] 2021 14:57-0400 Body weight 58.33 kg Julio Andujar MD Work Phone: [facility] 2021 14:57-0400 Diastolic blood pressure 67 mm[Hg] Julio Andujar MD Work Phone: [facility] 2021 14:57-0400 Heart rate 98 /min Julio Andujar MD Work Phone: [facility] 2021 14:57-0400 Respiratory rate 14 /min Julio Andujar MD Work Phone: [facility] 2021 14:57-0400 SaO2% (BldA) [Mass fraction] 99 % Julio Andujar MD Work Phone: [facility] 2021 14:57-0400 Systolic blood pressure 144 mm[Hg] Julio Andujar MD Work Phone: [facility] 03-14-2021 08:08-0500 Body height 162.6 cm Claudine Durán MD Work Phone: [facility] 03-14-2021 08:08-0500 Body temperature 97.5 [degF] Claudine Durán MD Work Phone: [facility] 03-14-2021 08:08-0500 Body weight 58.06 kg Claudine Durán MD Work Phone: [facility] 03-14-2021 08:08-0500 Diastolic blood pressure 62 mm[Hg] Claudine Durán MD Work Phone: [facility] 03-14-2021 08:08-0500 Heart rate 87 /min Claudine Durán MD Work Phone: [facility] 03-14-2021 08:08-0500 Respiratory rate 14 /min Claudine Durán MD Work Phone: [facility] 03-14-2021 08:08-0500 SaO2% (BldA) [Mass fraction] 99 % Claudine Durán MD Work Phone: [facility] 03-14-2021 08:08-0500 Systolic blood pressure 118 mm[Hg] Claudine Durán MD Work Phone: [facility] Encounters Encounter Date Encounter Type Care Provider Facility Start: 03-27-2023 E-mail encounter fro m caregiver Wililam Ambriz DO Work Phone: [facility] Start: 03-27-2023 Patient encounter procedure Gr clint Ambriz DO Work Phone: Cardiology Procedures Date Procedure Procedure Detail Performing Clinician Start: 02-07-2023 COVID & INFLUENZA A/ B & RSV NAAT, ROUTINE Adri Zaragoza DISABILITY LIAISON OFFICER.RESEARCH LABORATORY MANAGER Work Phone: Start: 01-04-2023 [employer] COVI D-19 VACCINE ( SEASON) AGE 12+ YR [facility] DISABILITY LIAISON OFFICER.MACHINE BOOKKEEPER Work Phone: Start: 01-04-2023 Prothrombin time [facility] DISABILITY LIAISON OFFICER.MACHINE BOOKKEEPER Work Phone: Start: 11-17-2022 Screening digital br east tomosynthesis bi [facility] DISABILITY LIAISON OFFICER.MACHINE BOOKKEEPER Work Phone: Start: 10-27-2022 INFLUENZA VACCINE, P RSV FREE, AGE 65+ YR, HIGH DOSE, QUADRIVALENT (FLUZONE HIGH-DOSE) [facility] DISABILITY LIAISON OFFICER.MACHINE BOOKKEEPER Work Phone: Start: 08-29-2022 Ecg routine ecg w/le ast 12 lds i&r only [facility] Provider Start: 07-20-2022 Ct thorax w/o contra st material Florence Terry MD Work Phone: Start: 11-10-2021 INFLUENZA SEASONAL QUADRIVALENT HIGH DOSE AGE 65+ [facility] DISABILITY LIAISON OFFICER.MACHINE BOOKKEEPER Work Phone: Start: 11-10-2021 P[employer] COVI D-19 BIVALENT BOOSTER VACCINE, AGE 12+ YR [facility] DISABILITY LIAISON OFFICER.MACHINE BOOKKEEPER Work Phone: Start: 11-10-2021 Adult depression scr eening assessment [facility] DISABILITY LIAISON OFFICER.MACHINE BOOKKEEPER Work Phone: Start: 10-18-2021 Radex foot complete minimum 3 views Yonas Louise Work Phone: Start: 10-12-2021 Diagnostic mammograp hy computer-aided detcj uni Brenda Anayacalf DISABILITY LIAISON OFFICER.RESEARCH LABORATORY MANAGER Work Phone: Start: 09-05-2021 End: 09-05-2021 Screening [facility] DIS[facility] LIAISON OFFICER.RESEARCH LABORATORY MANAGER Work Phone: Start: 07-11-2021 [employer] COVI D-19 VACCINE, AGE 12+ YR (ARIAS TOP) Claudine Durán MD Work Phone: Start: 07-07-2021 Lipid 1996 panel - S luisito or Plasma Ashly Shay RN Start: 07-13-2020 Adult depression scr eening assessment Nara Dopart Start: 06-01-2020 Mammography Nara Medina opart Start: 03-24-2019 Colonoscopy Nara Medina opart Plan of Treatment Date Care Activity Detail Author Start: 11-05-2029 Urine microalbumin profile [facility] Start: 03-24-2029 Colonoscopy COLONOSCOPY [facility] Start: 03-24-2029 COLORECTAL CANCER SCREENING COLORECTAL CANCER SCREENING [facility] Start: 03-24-2029 Screening for malignant neoplasm of colon [facility] Start: 07-07-2026 Lipid 1996 panel - Serum or Plasma Lipid Screening [facility] Start: 07-07-2026 Lipid panel Lipid Screening [facility] Start: 07-07-2026 LIPID SCREEN LIPID SCREEN [facility] Start: 03-25-2026 Diabetes Screening Diabetes Screening [facility] Start: 03-22-2026 Diabetes Screening Diabetes Screening [facility] Start: 03-03-2024 BP Controlled (<130/80) BP Controlled (<130/80) [facility] Start: 01-05-2024 BP Controlled (<130/80) BP Controlled (<130/80) [facility] Start: 10-28-2023 BP CONTROLLED (<130/80) BP CONTROLLED (<130/80) [facility] Start: 07-21-2023 BP CONTROLLED (<130/80) BP CONTROLLED (<130/80) [facility] Start: 07-08-2023 DIABETES SCREEN DIABETES SCREEN [facility] Start: 07-08-2023 Diabetes Screening Diabetes Screening [facility] Start: 03-13-2023 ANNUAL PCP TEAM CHRONIC DISEASE VISIT ANNUAL PCP TEAM CHRONIC DISEASE VISIT [facility] Start: 03-13-2023 BP CONTROLLED (<130/80) BP CONTROLLED (<130/80) [facility] Start: 03-01-2023 Covid-19 Vaccine () Covid-19 Vaccine () [facility] Start: 02-19-2023 Advance Directive Discussion Advance Directive Discussion [facility] Start: 02-19-2023 Depression Assessment Depression Assessment [facility] Start: 01-23-2023 End: 08-23-2023 Ct thorax w/o contrast material CT CHEST WO IVCON Radiology Routine Lung nodules Bronchiectasis without complication (HCC) Expected: 01/23/2023, Expires: 08/23/2023 [facility] Work Phone: Immunizations Immunization Date Immunization Notes Care Provider Galindo leyva 01-04-2023 COVID-19 vaccine, ag e 12+ yr, season (PFIZER-BIONTECH) Jimbo Carias DISABILITY LIAISON OFFICER.[facility] Work Phone: [facility] Work Phone: 10-27-2022 influenza (HD-IIV4) vaccine, age 65+ yr, high dose, quadrivalent, PF (FLUZONE HIGH-DOSE) Jimbo Carias DISABILITY LIAISON OFFICER.MACHINE BOOKKEEPER Work Phone: [facility] Work Phone: 11-10-2021 COVID-19 booster vaccine, age 12+ yr, bivalent (PFIZER-BIONTECH) Jimbo Carias DISABILITY LIAISON OFFICER.[facility] Work Phone: [facility] Work Phone: 11-10-2021 influenza, high-dose , quadrivalent vaccine (FLUZONE HIGH DOSE QUADRIVALENT) Jimbo Carias DISABILITY LIAISON OFFICER.MACHINE BOOKKEEPER Work Phone: [facility] Work Phone: 07-11-2021 COVID-19 vaccine, ag e 12+ yr (PFIZER-BIONTECH - ARIAS TOP) Anticoag Wstr Work Phone: [facility] 11-21-2020 COVID-19 original vaccine, age 12+ yr, monovalent (PFIZER-BIONTECH - PURPLE TOP) Claudine Durán MD Work Phone: [facility] 11-09-2020 COVID-19 vaccine, ag e 12+ yr (PFIZER-BIONTECH - PURPLE TOP) Nara Talavera [facility] 11-09-2020 influenza, high-dose , quadrivalent vaccine (FLUZONE HIGH DOSE QUADRIVALENT) [facility] Work Phone: 05-13-2020 COVID-19 vaccine, ag e 12+ yr (PFIZER-BIONTECH - PURPLE TOP) [facility] Work Phone: 04-22-2020 COVID-19 vaccine, ag e 12+ yr (PFIZER-BIONTECH - PURPLE TOP) [facility] Work Phone: 11-06-2019 influenza, high-dose , quadrivalent vaccine (FLUZONE HIGH DOSE QUADRIVALENT) [facility] Work Phone: 11-06-2019 tetanus and diphther ia toxoids, adsorbed, preservative free, for adult use (5 Lf of tetanus toxoid and 2 Lf of diphtheria toxoid) [facility] Work Phone: 11-28-2018 zoster vaccine recombinant [facility] 10-26-2018 influenza, high dose seasonal, preservative-free [facility] 07-23-2018 zoster vaccine recombinant [facility] 11-27-2017 influenza, high dose seasonal, preservative-free [facility] 02-07-2017 pneumococcal polysaccharide vaccine, 23 valrandall Durán MD Work Phone: [facility] 01-31-2017 influenza, high dose seasonal, preservative-free [facility] 12-13-2016 pneumococcal polysaccharide vaccine, 23 ravi Durán MD Work Phone: [facility] 11-28-2016 pneumococcal polysaccharide vaccine, 23 ravi Durán MD Work Phone: [facility] 12-13-2015 influenza, high dose seasonal, preservative-free [facility] 11-10-2014 influenza, high dose seasonal, preservative-free [facility] 03-30-2014 pneumococcal conjuga te vaccine, 13 valent [facility] 12-08-2013 pneumococcal polysaccharide vaccine, 23 valrandall Durán MD Work Phone: [facility] 11-24-2013 influenza, seasonal, injectable [facility] 03-24-2013 pneumococcal polysaccharide vaccine, 23 valent Nara [facility] 11-18-2012 influenza virus vacc ine, unspecified formulation [facility] Work Phone: 11-10-2011 influenza virus vacc ine, unspecified formulation [facility] 11-23-2010 influenza virus vacc ine, unspecified formulation [facility] 10-07-2009 tetanus toxoid, redu amarilis diphtheria toxoid, and acellular pertussis vaccine, adsorbed [facility] 10-29-2008 influenza virus vacc ine, unspecified formulation [facility] 09-22-1999 diphtheria and tetan us toxoids, adsorbed for pediatric use [facility] Work Phone: Payers Date Payer Category Payer Medicare AETNA MEDICARE A ETNA MEDICARE PPO [id number] 2021-Present [phone] [address] [place] [address] PPO [id number] 2021 Medicare AETNA MEDICARE A ETNA MEDICARE PPO [id number] 2021-Present [phone] [address] [place] [address] [facility] [id number] 2021 Medicare [id number] 1945 Unknown [id number] Medicare [id number] Private Health Insurance Social History Date Type Detail Facility Start: 08-28-2019 End: 11-10-2021 Tobacco smoking status NHIS Ex-smoker [facility] End: 02-19-1989 History of tobacco use Current smoker [facility] End: 02-19-1989 History of tobacco use Cigarette Smoker [facility] Start: 05-03-2021 End: 03-03-2023 Alcohol intake Current drinker of alcohol (finding) [facility] Start: 11-28-2019 End: 03-06-2022 History SDOH Alcohol Frequency 2 [facility] Start: 11-28-2019 End: 03-06-2022 History SDOH Alcohol Std Drinks 1 [facility] Start: 03-31-2019 End: 03-06-2022 History SDOH Social Connections Restorationist 3 [facility] Start: 03-31-2019 End: 03-06-2022 History SDOH Social Connections Living 4 [facility] Start: 07-28-2019 End: 03-06-2022 History SDOH Physical Activity DPW 5 [facility] Start: 03-31-2019 Education 18 [facility] Start: 08-28-2019 End: 11-10-2021 Tobacco Comment Late heavy smoker. [facility] Start: 1945 Sex Assigned At Female [facility] Start: 05-02-2021 End: 12-31-2021 Exposure to SARS-CoV-2 (event) Not sure [facility] Work Phone: Start: 08-28-2019 End: 06-22-2022 Cigarettes smoked current (pack per day) - Reported 1 [facility] Start: 08-28-2019 End: 11-10-2021 Tobacco use and exposure Smokeless tobacco non-user [facility] Start: 03-06-2022 End: 06-22-2022 Social connection and isolation panel [facility] Do you belong to any clubs or organizations such as evangelical groups, unions, fraternal or athletic groups, or school groups? Yes [facility] Are you now , , , , never or living with a partner? [facility] How often to you hav e a drink containing alcohol? Monthly or less [facility] How many standard dr inks containing alcohol do you have on a typical day? 1 or 2 [facility] How often do you hav e 6 or more drinks on 1 occasion? Never [facility] How hard is it for y ou to pay for the very basics like food, housing, medical care, and heating Not hard at all [facility] Do you feel stress - tense, restless, nervous, or anxious, or unable to sleep at night because your mind is troubled all the time - these days [OSQ] Not at all [facility] (I/We) worried wheth er (my/our) food would run out before (I/we) got money to buy more. Never true [facility] In the past 12 month s, was there a time when you were not able to pay the mortgage or rent on time? No [facility] Start: 03-04-2019 Gender identity Identifies as female gender (finding) [facility] Start: 03-04-2019 Sexual orientation Heterosexual (finding) [facility] Goals Date Patient Goal Desired Activity /State Personal health goal Clinical Notes 03-08-2018 to 03-25-2023 Telephone Encounter - Rachelle Leonard APRN.RESEARCH LABORATORY MANAGER - 03/23/2023 5:16 PM Adri Duran APRN.RESEARCH LABORATORY MANAGER - 02/07/2023 10:52 AM Flex Brown RN - 02/02/2023 3:19 PM ESTPatient Instructions Note Date & Type Note Facility 03-25-2023 Note HNO ID: [id number] Author: ARMEN FERNANDEZ, PAULA Service: Nursing Author Type: Registered Nurse Type: Nursing Progress Note Filed: 03/25/2023 08:58 Note Text: Sepsis alert, sound paged, vitals stable, pt stable, waitng for call-back from sound. [facility] 03-24-2023 Note HNO ID: [id number] Author: SHARAN RIVAS MD Service: Hospital Medicine Author Type: Physician Type: Progress Notes Filed: 03/24/2023 13:51 Note Text: DEPARTMENT OF HOSPITAL MEDICINE PROGRESS NOTE Hospital Medicine/Primary Attending: Sharan Rivas MD NIGHT AND WEEKEND COVERAGE: Before 7 pm please page Team color pager After 7pm please page [phone] MEDICATIONS: Current Facility-Administered Medications Medication Dose Route [...] (SPORANOX) 200 mg ORAL BID phenol 1 [place] (CHLORASEPTIC) 1 [place] MUCOUS MEMBRANE (TOPICAL MOUTH AND THROAT) q [...] was found to be COVID-19 positive in [place]. Imaging showed intraperitoneal air and pneumatosis intestinalis and patient was transferred to [facility]. Pulmonology was consulted and patient was started on remdesivir and Decadron for COVID-19. Also started on itraconazole, Cipro and Flagyl. Surgery was involved with no surgical plans. # Pneumatosis intestinalis and pneumoper (more content not included)... [facility] 03-24-2023 Note HNO ID: [id number] Author: MAGAN COURTNEY DO Service: Pulmonary Disease [...] of disseminated histoplasmosis. She is followed in [place], [place]. She has a history of previous [...] She presented to the emergency room at [place] after a vigorous coughing episode and coughing [...] (SPORANOX) 200 mg ORAL BID phenol 1 [place] (CHLORASEPTIC) 1 [place] MUCOUS MEMBRANE (TOPICAL MOUTH AND THROAT) q [...] no adenopathy; thyroi (more content not included)... [facility] 03-23-2023 Miscellaneous Notes Please schedule patient to follow with Dr. Burger in 2 months. Thank you documented in this encounter [facility] 03-23-2023 Note HNO ID: [id number] Author: TENZIN NELSON RN Service: Care Management Author Type: Registered Nurse Type: Care Mgt Progress Note Filed: 03/23/2023 14:44 Note Text: CARE MANAGEMENT PROGRESS NOTE SERVICE DATE: 03/23/2023 SERVICE TIME: 12:22 PM LOS: 4 days Post-Acute Discharge Planning Patient Goal(s): Be able to go home, General wellness [place] Explained: [place] Given: No Reason Not Given: [...] 23, 2023 TIME: 2:37 PM PAGER/CONTACT #: [phone] [facility] 03-23-2023 Note HNO ID: [id number] Author: MAGAN COURTNEY DO Service: Pulmonary Disease [...] of disseminated histoplasmosis. She is followed in [place], [place]. She has a history of previous [...] She presented to the emergency room at [place] after a vigorous coughing episode and coughing [...] pelvis 03/19/2023 Abnorma (more content not included)... [facility] 03-23-2023 Note HNO ID: [id number] Author: SHARAN RIVAS MD Service: Hospital Medicine [...] (SPORANOX) 200 mg ORAL BID phenol 1 [place] (CHLORASEPTIC) 1 [place] MUCOUS MEMBRANE (TOPICAL MOUTH AND THROAT) q [...] Liver Function, Amylase, AND Lipase Recent Labs 02/01/24 1356 03/22/23 0325 03/21/23 0632 03/20/23 1110 [...] and VTE on (more content not included)... [facility] 03-22-2023 Note HNO ID: [id number] Author: GENO BURGER MD Service: Infectious Disease [...] home -Patient can call my office at [phone] to get an appointment for about 3 [...] chills, myalgias, acute joint changes, abdominal complaints 2/1-feeling stronger. Cough is somewhat less. Has sore [...] for recurrent lower extremity DVT, presented to [facility] 03/19/2023 for hemoptysis, going to the [place] ED but then sent here due to [...] be COVID-positive. Interestingly a CAT scan at [place] found pneumatosis intestinalis and intraperitoneal free air comp (more content not included)... [facility] 03-22-2023 Note HNO ID: [id number] Author: MAGAN COURTNEY DO Service: Pulmonary Disease [...] of disseminated histoplasmosis. She is followed in [place], [place]. She has a history of previous [...] She presented to the emergency room at [place] after a vigorous coughing episode and coughing [...] Positive PCR for COVID-19 supposedly reported from [facility]. Chest and abdomen/pelvis reviewed CTA chest 03/19/2023 No pulmonary embolism Prominent reticular no (more content not included)... [facility] 03-22-2023 Note HNO ID: [id number] Author: YAN PEREZ DO Service: General Surgery [...] kg/m? Yan Perez DO 03/22/2023 1:52 PM] [facility] 03-22-2023 Note HNO ID: [id number] Author: JOSE LUIS CRISTOBAL DO Service: General [...] in ICU or 2174 if on RNF. [facility] 03-22-2023 Note HNO ID: [id number] Author: SHARAN RIVAS MD Service: Hospital Medicine Author Type: Physician Type: Progress Notes Filed: 03/23/2023 09:28 Note Text: DEPARTMENT OF HOSPITAL MEDICINE PROGRESS NOTE Hospital Medicine/Primary Attending: Shaarn Rivas MD NIGHT AND WEEKEND COVERAGE: Before 7 pm please page Team color pager After 7pm please page [phone] MEDICATIONS: Current Facility-Administered Medications Medication Dose Route [...] (SPORANOX) 200 mg ORAL BID phenol 1 [place] (CHLORASEPTIC) 1 [place] MUCOUS MEMBRANE (TOPICAL MOUTH AND THROAT) q [...] plan: Haydee Weber (more content not included)... [facility] 03-21-2023 Note HNO ID: [id number] Author: GENO BURGER MD Service: Infectious Disease [...] for recurrent lower extremity DVT, presented to [facility] 03/19/2023 for hemoptysis, going to the [place] ED but then sent here due to [...] be COVID-positive. Interestingly a CAT scan at [place] found pneumatosis intestinalis and intraperitoneal free air [...] -- 03/21/23 1000 remdesivir in NaCl 0.9% Vial-Mate/ADD-[place] 100 mg 275 mL 100 mg, INTRAVENOUS, EVERY 24 HOURS See Amada for full Linked Orders Report. 03/23/23 0959 03/20/23 1300 itraconazole 200 mg oral liquid (SPORANOX) 200 mg, ORAL, 3 TIMES DAILY 03/23/23 1259 01/29/24 2000 cipro (more content not included)... [facility] 03-21-2023 Note HNO ID: [id number] Author: PAMELA HALL MD Service: General Surgery [...] kg/m? O2 Therapy: Room Air IANDO: Date 03/20/23699 - 03/21/23 0659 03/21/23 07 - 03/22/23 0659 Shift 5177-7559 6803-0741 5904-4376 24 Hour Total 4575-9222 2842-5735 2661-7619 24 Hour Total INTAKE IV 1275 1275 [...] Dose Route Frequency remdesivir in NaCl 0.9% Vial-Mate/ADD-[place] 100 mg 275 mL 100 mg INTRAVENOUS [...] (SPORANOX) 200 mg ORAL TID phenol 1 [place] (CHLORASEPTIC) 1 [place] MUCOUS MEMBRANE (TOPICAL MOUTH AND THROAT) q [...] arthritis (HCC) 03/07/2015 Overview Note: Dr. Hurley ([facility]) Assessment: 77 year old female with PMH significant for RA (Humira), HTN, h/o disseminated Histoplasmosis, bronchiectasis, VTE (on coumadin), pulmonary nodules, and presenting to the ED today after an episode of hemoptysis at home. CTAP had an incidental finding of a small amount of intraperitoneal air and pneumatosis in the colon. INR on arrival to [place] was 9. She given Vitamin K and transferred here. Hospital Course/Operations/Procedures: * No surgery found * Plan: Pneumatosis intestinalis and intraperitoneal free air - labs and imaging reviewed - Small amount of air on (more content not included)... [facility] 03-21-2023 Note HNO ID: [id number] Author: MAGAN COURTNEY DO Service: Pulmonary Disease [...] of disseminated histoplasmosis. She is followed in [place], [place]. She has a history of previous [...] She presented to the emergency room at [place] after a vigorous coughing episode and coughing [...] Positive PCR for COVID-19 supposedly reported from [facility]. Chest and abdomen/pelvis reviewed CTA chest [...] atrial cavity normal (more content not included)... [facility] 03-20-2023 Note HNO ID: [id number] Author: SABRA RICHARDSON RN Service: Care Management Author Type: Registered Nurse Type: Care Mgt Initial Assessment Filed: 03/20/2023 16:23 Note Text: CARE MANAGEMENT: ASSESSMENT AND DISCHARGE PLAN SERVICE DATE: March 20, 2023 SERVICE TIME: 4:19 PM PCP: Claudine Durán MD Primary Contact: Extended Emergency Contact Information Primary Emergency Contact: Suzie Gerardo ([facility]) Address: [address] [address] [facility] Relation: Friend Secondary Emergency Contact: Padmini Chang Address: [address] [place] [id number] [place] [address] Mobile Relation: Friend Admission Status: Inpatient Insurance Provider: [employer] PPO Discharge Planning requested by: Per Department Practice Potential Transition Plans Home Advance Directives Current Advance Directive: None Welt Treater Attempted to Assist with AD Completion: Yes [...] wellness, Less pain, Wean off of O2 [place] of Choice Explained: [place] of [place] Given: No Reason Not Given: [...] 20, 2023 TIME: 4:19 PM CONTACT #: [phone] [facility] 03-20-2023 Note HNO ID: [id number] Author: MAGAN COURTNEY DO Service: Pulmonary Disease [...] of disseminated histoplasmosis. She is followed in [place], [place]. She has a history of previous [...] She presented to the emergency room at [place] after a vigorous coughing episode and coughing [...] Positive PCR for COVID-19 supposedly reported from [facility]. Chest and abdomen/pelvis reviewed CTA chest [...] consistent with d (more content not included)... [facility] 03-20-2023 Note HNO ID: [id number] Author: PAMELA HALL MD Service: General Surgery Author Type: Physician Type: Progress Notes Filed: 03/20/2023 14:33 Note Text: Emergency General Surgery Progress Note SERVICE DATE: March 20, 2023 Emergency General Surgery Service Pager: For questions or concerns Mon-Fri 6a-5p please page [phone]. After 5pm and on Weekends and Holidays, please page [phone] if in ICU or [phone] if on RNF. SUBJECTIVE: NAEON. AF and [...] kg/m? O2 Therapy: Room Air IANDO: Date 03/19/23 07 - 03/20/23 0659 03/20/23 07 - 03/21/23 0659 Shift 1556-2168 7396-2909 3148-5246 24 Hour Total 3181-2073 1370-3065 2924-6188 24 Hour Total INTAKE IV 300 100 [...] in the colon. INR on arrival to [place] was 9. She given Vitamin K and [...] chemical anticoagulation - INR on arrival to [place] was 9. She given Vitamin K prior to transfer - continue serial abdominal exams - notify general surgery of any acute changes in clinical status D/w Dr. Hall SIGNATURE: Christ Camarena MD PATIENT NAME: Haydee Bustamante DATE: March 20, 2023 TIME: 921 Pager: [phone] Emergency General Surgery Service Pager: For questions or concerns Mon-Fri 6a-5p please page [phone]. After 5pm and on Weekends and Holidays, please page [phone] if in ICU or [phone] if on RNF. Emergency General Surgery (EGS) Staff Addendum: See admit H/P for full attestation following today's patient care visit. I evaluated the patient and personally participated in the jim components. I agree with the resident's findi (more content not included)... [facility] 03-03-2023 Note HNO ID: [id number] Author: NYASIA WICK APRN.[facility] Service: ? Author Type: Nurse Practitioner Type: [...] Anemia Bone marrow involvement with histoplasmosis Bronchiectasis ([facility]) COPD (chronic obstructive pulmonary disease) ([facility]) Disseminated histoplasmosis Colitis, immunosuppression, 01/2018. Diverticulosis of colon (without mention of hemorrhage) Diverticulosis DVT, recurrent, lower extremity, acute ([facility]) 12/10/2014 Esophageal reflux Hiatal hernia 02/25/2018 Hypertension Lung nodule Personal history of unspecified urinary disorder 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 rheumatoid factor ([facility]) 03/07/2015 Dr. Hurley ([facility] Unspecified hemorrhoids without mention of complication Hemorrhoids [...] SPINE FUSN,POST INTERBODY 2011 Dr. Armando at [facility]. Diskectomy and laminectomy PAST SURGICAL HISTORY [...] fluticasone (FLONASE) 50 mcg/actuation nasal sprayUse 1 [place] in each nostril once daily.Disp: 3 EachRfl: [address] (PROTONIX) 40 mg tabletTake 1 tablet by mouth once daily.Disp: 90 tabletRfl: 3 albuterol HFA (PROAIR HFA) 90 mcg/actuation inhalerInhale 2 Puffs as instructed every 4 hours as needed.Disp: 1 EachRfl: 2 vit A,C,X-Jufc-Mjhplt (OCUVITE PRESERVISION) 2,148 mcg-113 mg-45 mg-17.4mg tabTake [...] mg by mout (more content not included)... [facility] 03-02-2023 Note HNO ID: [id number] Author: FLEX MEANS RN Service: ? Author Type: Registered Nurse Type: Progress Notes Filed: 03/02/2023 16:09 Note Text: pcp agrees with information [facility] 03-02-2023 Note HNO ID: [id number] Author: FLEX MEANS RN Service: ? Author Type: Registered Nurse Type: Progress Notes Filed: 03/02/2023 16:09 Note Text: patient had inr completed at [facility] patients inr is 1.7 (patients inr range [...] 4 weeks (03/30/23) for follow up INR. [facility] 02-23-2023 Note HNO ID: [id number] Author: JOHANNA BENITES PA-C Service: ? Author Type: Physician Design Tech Type: Progress Notes Filed: 02/23/2023 14:58 Note [...] coughing around Thanksgiving. She was seen in [facility] 02/07 and treated with Doxycycline for 10 [...] Bronchiectasis (HCC) COPD (chronic obstructive pulmonary disease) ([facility]) Disseminated histoplasmosis Colitis, immunosuppression, 01/2018. Diverticulosis of colon (without mention of hemorrhage) Diverticulosis DVT, recurrent, lower extremity, acute ([facility]) 12/10/2014 Esophageal reflux Hiatal hernia 02/25/2018 Hypertension Lung nodule Personal history of unspecified urinary disorder 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 rheumatoid factor ([facility]) 03/07/2015 Dr. Hurley ([facility] Unspecified hemorrhoids without mention of complication Hemorrhoids [...] fluticasone (FLONASE) 50 mcg/actuation nasal sprayUse 1 [place] in each nostril once daily.Disp: 3 EachRfl: [address] (PROTONIX) 40 mg tabletTake 1 tablet by mouth once daily.Disp: 90 tabletRfl: 3 albuterol HFA (PROAIR HFA) 90 mcg/actuation inhalerInhale 2 Puffs as instructed every 4 hours as needed.Disp: 1 EachRfl: 2 vit A,C,F-Bhcx-Wmkkik (OCUVITE PRESERVISION) 2,148 mcg-113 mg-45 mg-17.4mg tabTake [...] FLX DX W/ (more content not included)... [facility] 02-21-2023 Note HNO ID: [id number] Author: Faviola Anthony RT(R) Service: ? Author Type: Receiving Tank Operator Type: Progress Notes Filed: 02/21/2023 3:59 [...] RT Maryann(R) February 21, 2023 3:59 PM [facility] 02-14-2023 Note Patient Outreach ([facility] HAYDEE BUSTAMANTE ([id number]) 1945 F Date Time Provider Department 02/14/23 ILDA MILLER During your visit today, we recorded the following information about you: Ilda Miller RN 02/14/2023 9:29 AM Signed [facility] Telephonic Outreach Provider Action/SHAYNE N/A Follow up [...] never short of breath. Based on assessment nurse, the following disposition is advised: No symptoms or symptoms present, not severe. Routed to: No Action Needed PAN Education Provided this Outreach: No Upcoming appointments reviewed: Appointments for Next 60 Days Date Time Provider Location Dept Phone 02/21/2023 8:[address] [facility] (I-STAT) [place] [phone] 02/21/2023 9:00 AM DELMIS JOHANNA D[place] [phone] 03/02/2023 9:45 AM [facility] [phone] 04/09/2023 10:00 AM WILLIAM AMBRIZ [facility] [phone] Ilda Miller RN February 14, 2023 9:29 [...] (FLONASE) 50 mcg/actuation nasal spray Use 1 [place] in each nostril once daily. - pantoprazole DR (PROTONIX) 40 mg tablet Take 1 tablet by mouth once daily. - albuterol HFA (PROAIR HFA) 90 mcg/actuation inhaler Inhale 2 Puffs as instructed every 4 hours as needed. - vit A,C,U-Kwhl-Nqkywi (OCUVITE PRESERVISION) 2,148 mcg-113 mg-45 mg-17.4mg tab [...] by this patient by: PATIENT Muna Harris ([employer]) [facility] for residential medications. Problem List As Of Date 02/14/2023 Noted Resolved ESOPHAGEAL REFLUX [K21.9] 03/06/2005 MERALGIA PARESTHETICA [G57.10] 03/06/2005 VOICE DISTURBANCE NEC [R49.8] 03/06/2005 Pain in joint, lower leg [M25.569] 10/18/2006 03/02/2018 Embolism and thrombosis (HCC) [I74.9] 11/23/2006 07/07/2021 ARTHROPATHY NOS-UNSPEC [M12.9] 12/05/2006 Enthesopathy of hip region [M76.899] 01/04/2009 07/07/2021 Elevated Liver Enzymes [R74.8] 04/01/2009 Rheumatoid arthritis (HCC) [M06.9] 04/01/2009 03/07/2015 [facility] current use of anticoagulant therapy *04/01/2009 Hypertension [I10] 04/13/2010 03/07/2015 Right sided sciatica [M54.31] 03/20/2011 03/30/2014 HNP (herniated nucleus pulposus), lumbar [M51.2*03/20/2011 Atrophic vaginitis [N95.2] 03/06/2013 Ganglion cyst [M67.40] 08/17/2014 DVT, recurrent, lower extremity, acute (HCC) [I*11/20 (more content not included)... [facility] 02-14-2023 Note HNO ID: [id number] Author: Ilda Miller RN Service: ? Author [...] never short of breath. Based on assessment nurse, the following disposition is advised: No symptoms or symptoms present, not severe. Routed to: No Action Needed PAN Education Provided this Outreach: No Upcoming appointments reviewed: Appointments for Next 60 Days Date Time Provider Location Dept Phone 02/21/2023 8:20 AM [facility] (I-STAT) [place] [phone] 02/21/2023 9:00 AM JOHANNA BENITES [phone] 03/02/2023 9:45 AM [facility] [place] [phone] 04/09/2023 10:00 AM WILLIAM AMBRIZ [facility] [phone] Ilda Miller RN February 14, 2023 9:29 AM [facility] 02-07-2023 Note HNO ID: [id number] Author: Kathleen Alegria RT(R) Service: Radiology Author [...] RT Mariela(R) February 07, 2023 11:06 AM [facility] 02-07-2023 Note HNO ID: [id number] Author: Adri Zaragoza APRN.RESEARCH LABORATORY MANAGER Service: ? Author Type: Nurse Practitioner Type: [...] positive rheumatoid factor (HCC) 03/07/2015 Dr. Hurley ([facility]) Unspecified hemorrhoids without mention of complication Hemorrhoids [...] SPINE FUSN,POST INTERBODY 2012 Dr. Armando at [facility]. Diskectomy and laminectomy PAST SURGICAL HISTORY [...] fluticasone (FLONASE) 50 mcg/actuation nasal sprayUse 1 [place] in each nostril once daily.Disp: 3 EachRfl: [address] (PROTONIX) 40 mg tabletTake 1 tablet by mouth once daily.Disp: 90 tabletRfl: 3 albuterol HFA (PROAIR HFA) 90 mcg/actuation inhalerInhale 2 Puffs as instructed every 4 hours as needed.Disp: 1 EachRfl: 2 vit A,C,D-Qvjy-Lbeohq (OCUVITE PRESERVISION) 2,148 mcg-113 mg-45 mg-17.4mg tabTake [...] and nursing n (more content not included)... [facility] 02-07-2023 History of Presen t illness Narrative [...] hemorrhage) Diverticulosis DVT, recurrent, lower extremity, acute ([facility]) 12/10/2014 Esophageal reflux Hiatal hernia 02/25/2018 Hypertension Lung nodule Personal history of unspecified urinary disorder 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 rheumatoid factor ([facility]) 03/07/2015 Dr. Hurley ([facility] Unspecified hemorrhoids without mention of complication Hemorrhoids [...] SPINE FUSN,POST INTERBODY 2011 Dr. Armando at [facility]. Diskectomy and laminectomy PAST SURGICAL HISTORY [...] fluticasone (FLONASE) 50 mcg/actuation nasal spray^Use 1 [place] in each nostril once daily.^Disp: 3 Each^Rfl: [address] (PROTONIX) 40 mg tablet^Take 1 tablet by mouth once daily.^Disp: 90 tablet^Rfl: 3 albuterol HFA (PROAIR HFA) 90 mcg/actuation inhaler^Inhale 2 Puffs as instructed every 4 hours as needed.^Disp: 1 Each^Rfl: 2 vit A,C,P-Jalz-Wjsmyy (OCUVITE PRESERVISION) 2,148 mcg-113 mg-45 mg-17.4mg tab^Take [...] A/B & RSV NAAT, ROUTINE Adri Zaragoza APRN.RESEARCH LABORATORY MANAGER documented in this encounter [facility] 02-05-2023 Note Patient Outreach ([facility] HAYDEE BUSTAMANTE ([id number]) 1945 F Date Time Provider Department 02/05/23 ILDA MILLER During your visit today, we recorded the following information about you: Ilda Miller RN 02/05/2023 9:35 AM Signed [facility] ESCALATION Provider Action / FYI: N/A Message received via: basket maker Pool Are you having any new symptoms that your PCP needs to know about? Yes Do you have new or worsening cough? Yes Do you need to use your rescue (Albuterol) inhaler or nebulizer more often than normal? Yes Contact made with patient: Yes The patient was identified by name and date of . Discussed Care with patient Based on assessment nurse, the following disposition is advised: No symptoms [...] night. Advised evaluation at [facility]. Pt is agreeable to this and will go today to [place] for evaluation. Advised if becomes SOB or [...] for Visit: Community Monitoring Outreach [Other] Cmt: GIGI Escalation-[facility] questionnaire triggered call Primary Visit Diagnosis:Chronic obstructive pulmonary disease with acute exacerbation (HCC) [J44.1] Order(s):PT ED PULMONARY [[id number]] Order #: [id number]: 1 Prescriptions as of 02/05/2023 - budesonide-formoterol [...] (FLONASE) 50 mcg/actuation nasal spray Use 1 [place] in each nostril once daily. - pantoprazole DR (PROTONIX) 40 mg tablet Take 1 tablet by mouth once daily. - albuterol HFA (PROAIR HFA) 90 mcg/actuation inhaler Inhale 2 Puffs as instructed every 4 hours as needed. 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 Problem List As Of Date 02/05/2023 Noted Resolved ESOPHAGEAL REFLUX [K21.9] 03/06/2005 MERALGIA PARESTHETICA [G57.10] 03/06/2005 VOICE DISTURBANCE NEC [R49.8] 03/06/2005 Pain in joint, lower leg [M25.569] 10/18/2006 03/02/2018 Embolism and thrombosis (HCC) [I74.9] 11/23/2006 07/07/2021 ARTHROPATHY NOS-UNSPEC [M12.9] more content not included)... [facility] 02-05-2023 Note HNO ID: [id number] Author: Ilda Miller RN Service: ? Author Type: Registered Nurse Type: Progress Notes Filed: 02/05/2023 9:35 AM Note Text: CDM ESCALATION Provider Action / FYI: N/A Message received via: basket maker Pool Are you having any new symptoms that your PCP needs to know about? Yes Do you have new or worsening cough? Yes Do you need to use your rescue (Albuterol) inhaler or nebulizer more often than normal? Yes Contact made with patient: Yes The patient was identified by name and date of . Discussed Care with patient Based on assessment nurse, the following disposition is advised: No symptoms [...] night. Advised evaluation at [facility]. Pt is agreeable to this and will go today to [place] for evaluation. Advised if becomes SOB or cough worsens to the point of not being able to catch her breath, or notes bluish tint around lips to go to nearest ED or call 911. Verbalizes understanding and agreement. Ilda Miller RN February 05, 2023 9:19 AM [facility] 02-02-2023 Note HNO ID: [id number] Author: Flex Means RN Service: ? Author Type: ? Type: Progress Notes Filed: 02/02/2023 3:19 PM Note Text: pcp agrees with information [facility] 02-02-2023 History of Presen t illness Narrative pcp agrees with information patient had inr completed at [facility] patients inr is 2.1 (patients inr range [...] follow up INR. documented in this encounter [facility] 02-02-2023 Note HNO ID: [id number] Author: Flex Means RN Service: ? Author Type: ? Type: Progress Notes Filed: 02/02/2023 3:19 PM Note Text: patient had inr completed at [facility] patients inr is 2.1 (patients inr range [...] 4 weeks (03/02/23) for follow up INR. [facility] 01-24-2023 Miscellaneous Notes GEREMIAS 07/20/22 Patient phones requesting refills as follows: Requested Prescriptions Pending Prescriptions Disp Refills budesonide-formoterol (SYMBICORT) 160-4.5 mcg/actuation inhaler [Pharmacy Med Name: BUDESONIDE/FORM INHALER 10.2GM 160/4.5MCG] 30.6 g 3 Sig: USE 2 INHALATIONS TWICE A DAY INSTRUCTED Please review and advise. Magalie Ngo LPN documented in this encounter [facility] 01-17-2023 Note HNO ID: [id number] Author: Flex Means RN Service: ? Author Type: ? Type: Progress Notes Filed: 01/17/2023 3:02 PM Note Text: pcp agrees with information [facility] 01-17-2023 Note HNO ID: [id number] Author: Flex Means RN Service: ? Author Type: ? Type: Progress Notes Filed: 01/17/2023 3:02 PM Note Text: patient had inr completed at [facility] patients inr is 1.9 (patients inr range [...] the first normal reading since dose change [facility] 01-17-2023 History of Presen t illness Narrative pcp agrees with information patient had inr completed at [facility] patients inr is 1.9 (patients inr range [...] since dose change documented in this encounter [facility] 01-10-2023 Note HNO ID: [id number] Author: Flex Means RN Service: ? Author Type: ? Type: Progress Notes Filed: 01/10/2023 3:47 PM Note Text: pcp agrees with information PATIENT NOTIFIED OF INFORMATION [facility] 01-10-2023 History of Presen t illness Narrative pcp agrees with information PATIENT NOTIFIED OF INFORMATION patient had inr completed at [facility] patients inr is 2.9 (patients [...] advise on recommendation documented in this encounter [facility] 01-10-2023 Note HNO ID: [id number] Author: Flex Means RN Service: ? Author Type: ? Type: Progress Notes Filed: 01/10/2023 3:47 PM Note Text: patient had inr completed at [facility] patients inr is 2.9 (patients inr range [...] 01/17/23 please review and advise on recommendation [facility] 01-04-2023 Note HNO ID: [id number] Author: Yesenia Weinstein LPN Service: ? Author Type: ? Type: Progress Notes Filed: 01/04/2023 4:25 PM Note Text: Patient notified of providers message and verbalized understanding. [facility] 01-04-2023 Note HNO ID: [id number] Author: Jimbo Carias APRN.TYLOR Service: ? Author Type: Nurse Specialist Type: Progress Notes Filed: 01/04/2023 4:25 PM Note Text: OK to change coumadin to 7.5mg Tues,Sat,Sun and 5mg all other days and recheck INR in 1 week [facility] 01-04-2023 History of Presen t illness Narrative Patient notified of providers message and verbalized understanding. OK to change coumadin to 7.5mg Tues,Sat,Sun and 5mg all other days and recheck INR in 1 week patient had inr completed at [facility] patients inr is 2.6 (patients inr range [...] advise on recommendation documented in this encounter [facility] 01-04-2023 Note HNO ID: [id number] Author: Flex Means RN Service: ? Author Type: ? Type: Progress Notes Filed: 01/04/2023 4:25 PM Note Text: patient had inr completed at [facility] patients inr is 2.6 (patients inr range [...] 01/10/23 please review and advise on recommendation [facility] 01-04-2023 Note HNO ID: [id number] Author: Jimbo Carias APRN.MACHINE BOOKKEEPER Service: ? Author Type: Nurse Specialist Type: Progress Notes Filed: 01/04/2023 11:32 AM Note Text: SUBJECTIVE: RSV Vaccine(1 - 1-dose 60+ series) Never done Covid-19 Vaccine( season) due on 10/20/2022 JEFFREY Bustamante is a 77 year old [...] and COPD. HPI excerpted from previous visits: Concessions Manager: Florence Terry MD, last seen July 20, 2022. Seen for follow-up of lung nodules bronchiectasis. Noted are a likely etiology for underlying bronchiectasis. Noted new nodularity of lung, likely represents inflammatory nodules. Will need follow-up CT. No this may improve with bronchopulmonary hygiene. Spiriva and intermittent albuterol has helped with cough. Stable. Event Specialist Food Demonstrator: William Ambriz BAV, aortic stenosis , last seen in cardiology August 29, 2022 by Rachelle Lai CNP. Continued on current treatments unchanged. Follow-up echo advised, not yet scheduled.. 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 Continues with methotrexate, Humira.seen by [...] Occasional bruising. [facility] coumadin clinic. Referred by janitor head to see orthopedic physician for her hip. [...] fluticasone (FLONASE) 50 mcg/actuation nasal sprayUse 1 [place] in each nostril once daily.Disp: 3 EachRfl: [address] (PROTONIX) 40 mg tabletTake 1 tablet by mouth once daily.Disp: 90 tabletRfl: 3 albuterol HFA (PROAIR HFA) 90 mcg/actuation inhalerInhale 2 Puffs as instructed every 4 hours as needed.Disp: 1 EachRfl: 2 vit A,C,T-Nvzr-Emnouc (OCUVITE PRESERVISION) 2,148 mcg-113 mg-45 mg-17.4mg tabTake 2 tablets by mouth daily with breakfast.Disp: Rfl: potassium chloride ER (KLOR-CON M20) 20 mEq tabletTake 1 tablet by mouth twice daily.Disp: 180 tabletRfl: 3 leucovorin (LEUCOVORIN) 15 mg table (more content not included)... [facility] 01-04-2023 Instructions Jimbo Carias APRN.CNS - 01/04/2023 10:50 AM EST It appears that you have better coverage for the RSV vaccine at your local pharmacy. documented in this encounter [facility] 01-04-2023 History of Presen t illness [...] and COPD. HPI excerpted from previous visits: Concessions Manager: Florence Terry MD, last seen July 20, 2022. Seen for follow-up of lung nodules bronchiectasis. Noted are a likely etiology for underlying bronchiectasis. Noted new nodularity of lung, likely represents inflammatory nodules. Will need follow-up CT. No this may improve with bronchopulmonary hygiene. Spiriva and intermittent albuterol has helped with cough. Stable. Event Specialist Food Demonstrator: William Ambriz BAV, aortic stenosis , last seen in cardiology August 29, 2022 by Rachelle Lai CNP. Continued on current treatments unchanged. Follow-up echo advised, not yet scheduled.. 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 Continues with methotrexate, Humira.seen by Dr. [...] Occasional bruising. [facility] cou[facility]in clinic. Referred by janitor head to see orthopedic physician for her hip. [...] (COUMADIN) 5 mg tablet^Take 7.5 mg , Sun,Fri, Sat, Sun; and [...] fluticasone (FLONASE) 50 mcg/actuation nasal spray^Use 1 [place] in each nostril once daily.^Disp: 3 Each^Rfl: [address] (PROTONIX) 40 mg tablet^Take 1 tablet by mouth once daily.^Disp: 90 tablet^Rfl: 3 albuterol HFA (PROAIR HFA) 90 mcg/actuation inhaler^Inhale 2 Puffs as instructed every 4 hours as needed.^Disp: 1 Each^Rfl: 2 vit A,C,G-Bknv-Pygpxi (OCUVITE PRESERVISION) 2,148 mcg-113 mg-45 mg-17.4mg tab^Take [...] hemorrhage) Diverticulosis DVT, recurrent, lower extremity, acute ([facility]) 12/10/2014 Esophageal reflux Hiatal hernia 02/25/2018 Hypertension Lung nodule Personal history of unspecified urinary disorder 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 rheumatoid factor ([facility]) 03/07/2015 Dr. Hurley ([facility] Unspecified hemorrhoids without mention of complication Hemorrhoids [...] to get at pharmacy discussed risks - [employer] COVID-19 VACCINE ( SEASON) AGE 12+ YR in office today Jimbo Carias APRN.MACHINE BOOKKEEPER Medical Decision Making: Problems: Low: 2+ self-limited or minor problems Risk: Moderate: Drug management Medical Decision Making Level: 3 - Low documented in this encounter [facility] 12-20-2022 Miscellaneous Notes Patient has been [...] Maritza Preston LPN. documented in this encounter [facility] 12-14-2022 Note HNO ID: [id number] Author: Jimbo Carias APRN.MACHINE BOOKKEEPER Service: ? Author Type: Nurse Specialist Type: Progress Notes Filed: 12/14/2022 3:38 PM Note Text: Continue with Coumadin dose unchanged and check INR in 2 or 3 weeks [facility] 12-14-2022 Note HNO ID: [id number] Author: Flex Means RN Service: ? Author Type: ? Type: Progress Notes Filed: 12/14/2022 3:38 PM Note Text: patient had inr completed at [facility] patients inr is 2.2 (patients inr [...] week lauryn and patient declines blood draw [facility] 12-14-2022 History of Presen t illness Narrative Continue with Coumadin dose unchanged and check INR in 2 or 3 weeks patient had inr completed at [facility] patients inr is 2.2 (patients inr range [...] declines blood draw documented in this encounter [facility] 12-07-2022 Note HNO ID: [id number] Author: Yesenia Weinstein LPN Service: ? Author Type: ? Type: Progress Notes Filed: 12/07/2022 4:46 PM Note Text: Patient notified of providers message regarding coumadin instructions and verbalized understanding. [facility] 12-07-2022 Note HNO ID: [id number] Author: Jimbo Carias APRN.TYLOR Service: ? Author Type: Nurse Specialist Type: Progress Notes Filed: 12/07/2022 4:46 PM Note Text: Recommend Coumadin 5 mg Sunday and 7.5 mg all other days and check INR in 1 week [facility] 12-07-2022 History of Presen t illness Narrative Patient notified of providers message regarding coumadin instructions and verbalized understanding. Recommend Coumadin 5 mg Sunday and 7.5 mg all other days and check INR in 1 week patient had inr completed at [facility] patients inr is 2.5 (patients inr range is 1.7-2.2) patient is currently taking 5mg Mon,Wed and 7.5mg all other days patients last dose change was on 10/12/22 due to a low level of 1.5 (dose at that time was 7.5mg ,,Sun and 5mg all other days) patient has had no changes in medication and no missed doses and no change in diet Recommend: patient change coumadin dose to 5mg Mon,Wed,Fri and 7.5mg all other days and recheck inr in 1 week patient has been scheduled for a 1 week follow up inr on 12/14/22 please review and advise on recommendation documented in this encounter [facility] 12-07-2022 Note HNO ID: [id number] Author: Flex Means RN Service: ? Author Type: ? Type: Progress Notes Filed: 12/07/2022 4:46 PM Note Text: patient had inr completed at [facility] patients inr is 2.5 (patients inr range [...] 12/14/22 please review and advise on recommendation [facility] 11-20-2022 Miscellaneous Notes November 20, 2022 PID: [id number] Haydee Bustamante [address] [place] [address] Dear Ms. Bustamante, We are pleased to [...] report will be kept on file at [facility] as part of your permanent medical record and are available for your continuing care. Thank you for allowing us to help in meeting your health care needs. Sincerely, Dr. Basurto Interpreting Radiologist [facility] (Normal over 40) documented in this encounter [facility] 11-17-2022 Note HNO ID: [id number] Author: Aide Gupta, RT(R) Service: ? Author Type: Technologist Type: [...] Rosa Maria(R) November 17, 2022 9:00 AM [facility] 11-17-2022 Note HNO ID: [id number] Author: Shahnaz Ferguson Mammo Tech Service: ? Author Type: Receiving Tank Operator Type: Progress Notes Filed: 11/17/2022 9:25 [...] Haider Adams November 17, 2022 9:00 AM [facility] 11-17-2022 History of Presen t illness Narrative [...] 2022 9:00 AM documented in this encounter [facility] 11-17-2022 Miscellaneous Notes Negative, 1 year screening follow-up documented in this encounter [facility] 11-09-2022 Note HNO ID: [id number] Author: Jimbo Carias APRN.CNS Service: ? Author Type: Nurse Specialist Type: Progress Notes Filed: 11/09/2022 4:58 PM Note Text: Continue Coumadin dose unchanged and check INR in 4 weeks [facility] 11-09-2022 History of Presen t illness Narrative Continue Coumadin dose unchanged and check INR in 4 weeks patient had inr completed at [facility] patients inr is 1.9 (patients inr range [...] follow up INR. documented in this encounter [facility] 11-09-2022 Note HNO ID: [id number] Author: Flex Means RN Service: ? Author Type: ? Type: Progress Notes Filed: 11/09/2022 4:58 PM Note Text: patient had inr completed at [facility] patients inr is 1.9 (patients inr range [...] 4 weeks (12/07/22) for follow up INR. [facility] 11-09-2022 Note HNO ID: [id number] Author: Ron Bell MD Service: ? Author Type: Physician Type: Progress Notes Filed: 12/07/2022 8:52 AM Note Text: Ron Bell MD Department of Orthopaedics Orth[facility] [address] [place] [address] Dept: [phone] Dept November 09, 2022 CHIEF COMPLAINT: New [...] acute pathology. 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 Pet Handler: KRYSTAL Transcribe Date/Time: Dec 31 2021 11:55A [...] hemorrhage) Diverticulosis DVT, recurrent, lower extremity, acute ([facility]) 12/10/2014 Esophageal reflux Hiatal hernia 02/25/2018 Hypertension Lung nodule Personal history of unspecified urinary disorder 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 rheumatoid factor ([facility]) 03/07/2015 Dr. Hurley ([facility]) Unspecified hemorrhoids without mention of complication Hemorrhoids [...] SPINE FUSN,POST INTERBODY 2012 Dr. Armando at [facility]. Diskectomy and laminectomy PAST SURGICAL HISTORY OF 03/07/1999 removal facial lesion PAST SURGICAL HISTORY OF 08/17/2014 excision soft tissue mass left index finger TONSILLECTOMY PRIMARY/SECONDARY TRANSCATH RETRIEVAL,JEVON 12/28/2006 Family History: FAMILY HISTORY Problem Relation Age of Onset Cancer Mother brain Social History: Social History To (more content not included)... [facility] 11-09-2022 Miscellaneous Notes patients orders for coumadin clinic inr's has at this time. new order has been pended for approval if possible so that patient can continue to get inr's completed thru the coumadin clinic. coumadin clinic nurse only needs called if order can not be approved. documented in this encounter [facility] 11-09-2022 History of Presen t illness Narrative Ron Bell MD Department of Orthopaedics Orthopaedics [facility] [address] [facility] [address] Dept: [phone] Dept November 09, 2022 CHIEF COMPLAINT: New [...] acute pathology. 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 Pet Handler: KRYSTAL Transcribe Date/Time: Dec 31 2021 11:55A [...] Bronchiectasis (HCC) COPD (chronic obstructive pulmonary disease) ([facility]) Disseminated histoplasmosis Colitis, immunosuppression, 01/2018. Diverticulosis of colon (without mention of hemorrhage) Diverticulosis DVT, recurrent, lower extremity, acute ([facility]) 12/10/2014 Esophageal reflux Hiatal hernia 02/25/2018 Hypertension Lung nodule Personal history of unspecified urinary disorder 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 rheumatoid factor ([facility]) 03/07/2015 Dr. Hurley ([facility]) Unspecified hemorrhoids without mention of complication Hemorrhoids [...] SPINE FUSN,POST INTERBODY 2012 Dr. Armando at [facility]. Diskectomy and laminectomy PAST SURGICAL HISTORY [...] (FLONASE) 50 mcg/actuation nasal spray Use 1 [place] in each nostril once daily. pantoprazole DR (PROTONIX) 40 mg tablet Take 1 tablet by mouth once daily. albuterol HFA (PROAIR HFA) 90 mcg/actuation inhaler Inhale 2 Puffs as instructed every 4 hours as needed. vit A,C,N-Lvln-Psfzdk (OCUVITE PRESERVISION) 2,148 mcg-113 mg-45 mg-17.4mg tab [...] physician via [place] mail. Jeana Sommers [address] [facility] [address] Claudine Durán MD [address] [facility] [address] Ron Bell MD documented in this encounter [facility] 11-02-2022 Miscellaneous Notes Patient calls back and states that Ritmarily Gamboa does have prescription for coumadin. Isabella Zacarias RN Patient calling to say [facility] tells her they did not receive script for short fill Warfarin. Patient asking if it can be sent again. Pended. Melanie Mcgregor RN documented in this encounter [facility] 10-31-2022 Miscellaneous Notes Last OV: 10/27/22 with TYLOR Yi. Pt reports she will be out of medication on Th and [facility] advised her she had [...] Charissa Perez LPN documented in this encounter [facility] 10-31-2022 Miscellaneous Notes Patient calling with request for medication/refill: Patient/caregiver requesting refill of Warfarin be called to [facility] pharmacy at online.. Patient denies any new or worsening symptoms of which a provider is not aware: Yes. Patient just discovered she will run out of the below rx on . Is requesting a short term supply be sent to [facility] in [place] and the remainder sent to [facility]. Has been taking medication as ordered. warfarin (COUMADIN) 5 mg tablet 30 tablet 3 07/11/2022 Sig: Take 7.5 mg , Sun,Sun, Sun, Sun; and 5 mg on Sunday and Sunday Sent to pharmacy as: warfarin (COUMADIN) 5 mg tablet documented in this encounter [facility] 10-27-2022 Note HNO ID: [id number] Author: Jimbo Carias APRN.MACHINE BOOKKEEPER Service: ? Author Type: Nurse Specialist Type: [...] bicuspid valve, lung nodule bronchiectasis and COPD. Concessions Manager: Florence Terry MD, last seen July 20, 2022. Seen for follow-up of lung nodules bronchiectasis. Noted are a likely etiology for underlying bronchiectasis. Noted new nodularity of lung, likely represents inflammatory nodules. Will need follow-up CT. No this may improve with bronchopulmonary hygiene. Spiriva and intermittent albuterol has helped with cough. Stable. Event Specialist Food Demonstrator: William Ambriz BAV, aortic stenosis , last seen in cardiology August 29, 2022 by Rachelle Lai CNP. Continued on current treatments unchanged. Follow-up echo advised, not yet scheduled.. 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 Continues with methotrexate, Humira.seen by Dr. Roque Zacarias 06/26/2022 for RA, osteoporosis, degenerative disc disease, arthritis of foot, osteoarthritis of bilateral hands. DEXA scan completed, showed osteoporosis. All yes trying recommended restart of Reclast. Weight: stable Exercise: walking miles most days, feeling well with this . 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 [...] pain, currently taking gabapentin. Plans to see fire support specialist, referred by janitor head. Referred by janitor head to see orthopedic physician for her hip. [...] fluticasone (FLONASE) 50 mcg/actuation nasal sprayUse 1 [place] in each nostril once daily.Disp: 3 EachRfl: [...] hours as needed.Disp: 1 EachRfl: 2 vit A,C,U-Yutr-Nnxzmm (OCUVITE PRESERVISION) 2,148 mcg-113 mg-45 mg-17.4mg tabTake [...] puffs once da (more content not included)... [facility] 10-27-2022 History of Presen t illness Narrative [...] bicuspid valve, lung nodule bronchiectasis and COPD. Concessions Manager: Florence Terry MD, last seen July 20, 2022. Seen for follow-up of lung nodules bronchiectasis. Noted are a likely etiology for underlying bronchiectasis. Noted new nodularity of lung, likely represents inflammatory nodules. Will need follow-up CT. No this may improve with bronchopulmonary hygiene. Spiriva and intermittent albuterol has helped with cough. Stable. Event Specialist Food Demonstrator: William Ambriz BAV, aortic stenosis , last seen in cardiology August 29, 2022 by Rachelle Lai CNP. Continued on current treatments unchanged. Follow-up echo advised, not yet scheduled.. 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 Continues with methotrexate, Humira.seen by [...] pain, currently taking gabapentin. Plans to see fire support specialist, referred by janitor head. Referred by janitor head to see orthopedic physician for her hip. [...] fluticasone (FLONASE) 50 mcg/actuation nasal spray^Use 1 [place] in each nostril once daily.^Disp: 3 Each^Rfl: [...] hours as needed.^Disp: 1 Each^Rfl: 2 vit A,C,E-Loyq-Iwpzsq (OCUVITE PRESERVISION) 2,148 mcg-113 mg-45 mg-17.4mg tab^Take [...] positive rheumatoid factor (HCC) 03/07/2015 Dr. Hurley ([facility]) Unspecified hemorrhoids without mention of complication Hemorrhoids [...] ICD9: 724.3, ICD10: M54.41 Plans to see fire support specialist 6. Hip pain, acute, left - ICD9: 719.45, ICD10: M25.552 7. 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 rheumatoid factor (HCC) - ICD9: 714.0, ICD10: M05.79 Followed by [facility] 8. Bronchiectasis without complication (HCC) - ICD9: [...] 4 - Moderate documented in this encounter [facility] 10-27-2022 Instructions Jimbo Carias APRN.CNS - 10/27/2022 9:01 AM EDT Consider getting new COVID booster when it becomes available either in clinic or at pharmacy. documented in this encounter [facility] 10-26-2022 Note HNO ID: [id number] Author: Jimbo Carias APRN.CNS Service: ? Author Type: Nurse Specialist Type: Progress Notes Filed: 10/26/2022 4:39 PM Note Text: Continue with Coumadin dose unchanged and check INR in 2 weeks [facility] 10-26-2022 History of Presen t illness Narrative Continue with Coumadin dose unchanged and check INR in 2 weeks patient had inr completed at [facility] patients inr is 1.7 (patients inr range [...] since dose change documented in this encounter [facility] 10-26-2022 Note HNO ID: [id number] Author: Flex Means RN Service: ? Author Type: ? Type: Progress Notes Filed: 10/26/2022 4:39 PM Note Text: patient had inr completed at [facility] patients inr is 1.7 (patients inr range [...] the first normal reading since dose change [facility] 10-12-2022 Note HNO ID: [id number] Author: Maritza Preston LPN Service: ? Author Type: ? Type: Progress Notes Filed: 10/13/2022 10:06 AM Note Text: Left message to call AND speak to nurse re: Coumadin. Maritza Preston LPN [facility] 10-12-2022 Note HNO ID: [id number] Author: Jimbo Carias APRN.MACHINE BOOKKEEPER Service: ? Author Type: Nurse Specialist Type: Progress Notes Filed: 10/13/2022 10:06 AM Note Text: Okay to change coumadin dose to 5mg Mon,Wed and 7.5mg all other days and recheck inr in 2 weeks [facility] 10-12-2022 History of Presen t illness Narrative Left message to call & speak to nurse re: Coumadin. Maritza Preston LPN Okay to change coumadin dose to 5mg Mon,Wed and 7.5mg all other days and recheck inr in 2 weeks patient had inr completed at [facility] patients inr is 1.5 (patients inr range [...] advise on recommendation documented in this encounter [facility] 10-12-2022 Note HNO ID: [id number] Author: Flex Means RN Service: ? Author Type: ? Type: Progress Notes Filed: 10/13/2022 10:06 AM Note Text: patient had inr completed at [facility] patients inr is 1.5 (patients inr range [...] 10/26/22 Please review and advise on recommendation [facility] 10-09-2022 Miscellaneous Notes Patient does not take [...] you. CARMEN Viveros documented in this encounter [facility] 09-28-2022 Note HNO ID: [id number] Author: Jimbo Carias APRN.MACHINE BOOKKEEPER Service: ? Author Type: Nurse Specialist Type: Progress Notes Filed: 09/28/2022 4:12 PM Note Text: Continue with Coumadin dose unchanged and check INR in 2 weeks [facility] 09-28-2022 Note HNO ID: [id number] Author: Flex Means RN Service: ? Author Type: ? Type: Progress Notes Filed: 09/28/2022 4:12 PM Note Text: patient had inr completed at [facility] patients inr is 1.8 (patients inr range [...] the first normal reading since dose change [facility] 09-25-2022 Miscellaneous Notes Called PT and put [...] Thanks ~ JJ documented in this encounter [facility] 09-15-2022 Miscellaneous Notes Pt called and [...] and pt findings. documented in this encounter [facility] 09-07-2022 Note HNO ID: [id number] Author: Flex Means RN Service: ? Author Type: ? Type: Progress Notes Filed: 09/07/2022 4:08 PM Note Text: PATIENT NOTIFIED OF INFORMATION [facility] 09-07-2022 Note HNO ID: [id number] Author: Jimbo Carias APRN.MACHINE BOOKKEEPER Service: ? Author Type: Nurse Specialist Type: Progress Notes Filed: 09/07/2022 4:08 PM Note Text: Okay for 5 mg Coumadin Sunday and 7.5 mg all other days. Recheck INR in 1 week [facility] 09-07-2022 History of Presen t illness Narrative PATIENT NOTIFIED OF INFORMATION Okay for 5 mg Coumadin Sunday and 7.5 mg all other days. Recheck INR in 1 week patient had inr completed at [facility] patients inr is 2.4 (patients inr range [...] 3 weeks patient has been scheduled at [facility] for an inr follow up 09/14/22 (order is already in place) please review and advise on recommendation documented in this encounter [facility] 09-07-2022 Note HNO ID: [id number] Author: Flex Means RN Service: ? Author Type: ? Type: Progress Notes Filed: 09/07/2022 4:08 PM Note Text: patient had inr completed at [facility] patients inr is 2.4 (patients inr range [...] 3 weeks patient has been scheduled at [facility] for an inr follow up 09/14/22 (order is already in place) please review and advise on recommendation [facility] 08-29-2022 Note HNO ID: [id number] Author: Rachelle Lai APRN.CNP Service: ? Author Type: Nurse Practitioner Type: Progress Notes Filed: 09/11/2022 10:01 AM Note Text: [facility] [place] [facility] Department of Cardiovascular Medicine SECTION [...] Haydee Bustamante : 1945 PRIMARY CARE PHYSICIAN: Clauidne Durán MD CHIEF COMPLAINT: Patient presents with: [...] which included preparing to see the patient, [id number] patient care, completing clinical documentation, performing a [...] prior to the follow up. Rachelle Lai APRN.[facility] Cardiology Nurse Practitioner Section of [facility] Cardiology [facility] Dept of Cardiovascular Medicine [facility] [place] [address] Office Office August 29, 2022 7:46 AM This note was partially generated using [employer] voice recognition system and may contain errors [...] has progressed. :5 (more content not included)... [facility] 08-29-2022 Instructions Rachelle Lai APRN.CNP - 08/29/2022 [...] in 6 months documented in this encounter [facility] 08-29-2022 History of Presen t illness Narrative Images from the original note were not included. [facility] [place] Department of Cardiovascular Medicine SECTION [...] which included preparing to see the patient, [id number] patient care, completing clinical documentation, performing a [...] prior to the follow up. Rachelle Lai APRN.[facility] Cardiology Nurse Practitioner Section of [facility] Dept of Cardiovascular Medicine [facility] [place] [address] [place] [address] Office Office August 29, 2022 7:46 AM This note was partially generated using Pet[employer] recognition system and may contain errors related [...] 0.90 cm (0.55 cm /m ) by KATERINA fortune. The peak gradient is 42 mmHg, the [...] nodule with faint calcifications suggesting calcified granuloma. 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 Diverticulosis of colon (without mention of hemorrhage) Diverticulosis DVT, recurrent, lower extremity, acute ([facility]) 12/10/2014 Esophageal reflux Hiatal hernia 02/25/2018 Hypertension Lung nodule Personal history of unspecified urinary disorder 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 rheumatoid factor ([facility]) 03/07/2015 Dr. Hurley ([facility]) Unspecified hemorrhoids without mention of complication Hemorrhoids [...] and ROS obtained by others. Rachelle Lai, DISABILITY LIAISON OFFICER.RESEARCH LABORATORY MANAGER CURRENT MEDICATIONS: Current Outpatient Medications Medication Sig budesonide-formoterol (SYMBICORT) 160-4.5 mcg/actuation inhaler Inhale 2 Puffs as instructed twice daily. fluticasone (FLONASE) 50 mcg/actuation nasal spray Use 1 [place] in each nostril once daily. warfarin (COUMADIN) 5 mg tablet Take 7.5 mg , Sun,Sun, Sun, Sun; and 5 mg on Sunday and Sunday pantoprazole DR (PROTONIX) 40 mg tablet Take 1 tablet by mouth once daily. albuterol HFA (PROAIR HFA) 90 mcg/actuation inhaler Inhale 2 Puffs as instructed every 4 hours as needed. vit A,C,S-Ughz-Imuqiy (OCUVITE PRESERVISION) 2,148 mcg-113 mg-45 mg-17.4mg tab [...] INTRAVENOUS DIRECTED PRN documented in this encounter [facility] 08-15-2022 Miscellaneous Notes GEREMIAS 07/20/22 Patient phones requesting refills as follows: Requested Prescriptions Pending Prescriptions Disp Refills budesonide-formoterol (SYMBICORT) 160-4.5 mcg/actuation inhaler Sig: Inhale as instructed twice daily. Please review and advise. Magalie Ngo LPN documented in this encounter [facility] 08-13-2022 Miscellaneous Notes Glad doing better. Thanks for update. Pt calls office /c update. She states she is on her 4th day of prednisone and she is feeling much better, feeling great. She states her pain is cut in half now. Bakari Catalan LPN documented in this encounter [facility] 08-10-2022 Note HNO ID: [id number] Author: Maritza Preston LPN Service: ? Author Type: ? Type: Progress Notes Filed: 08/10/2022 4:48 PM Note Text: Left below on identified vm, asked Patient to call back to let the office know she did receive. Maritza Preston LPN [facility] 08-10-2022 Note HNO ID: [id number] Author: Jimbo Carias APRN.MACHINE BOOKKEEPER Service: ? Author Type: Nurse Specialist Type: Progress Notes Filed: 08/10/2022 4:48 PM Note Text: Continue with Coumadin dose unchanged and check INR in 4 weeks [facility] 08-10-2022 Note HNO ID: [id number] Author: Flex Means RN Service: ? Author Type: ? Type: Progress Notes Filed: 08/10/2022 4:48 PM Note Text: patient had inr completed at [facility] patients inr is 2.1 (patients inr range [...] 4 weeks (09/07/22) for follow up INR. [facility] 07-27-2022 Note HNO ID: [id number] Author: Maritza Preston LPN Service: ? Author Type: ? Type: Progress Notes Filed: 07/27/2022 3:20 PM Note Text: Below left on identified vm. Patient is already scheduled in 2 weeks. Maritza Preston LPN [facility] 07-27-2022 Note HNO ID: [id number] Author: Jimbo Carias APRN.MACHINE BOOKKEEPER Service: ? Author Type: Nurse Specialist Type: Progress Notes Filed: 07/27/2022 3:20 PM Note Text: Continue with current dosing and check INR 2 weeks [facility] 07-27-2022 Note HNO ID: [id number] Author: Flex Means RN Service: ? Author Type: ? Type: Progress Notes Filed: 07/27/2022 3:20 PM Note Text: patient had inr completed at [facility] patients [facility] is 1.7 [facility] patient is currently [...] the first normal reading since dose change [facility] 07-20-2022 Note HNO ID: [id number] Author: Florence Terry MD Service: ? Author Type: Physician Type: Progress Notes Filed: 07/25/2022 12:42 PM Note Text: . [facility] [place] Note Patient name: Haydee Bustamante PCP: Claudine Durán MD CC: Follow-up chest CT HPI: Haydee Bustamante 77 year old female former 10 pack year smoker with PMH significant for RA (MTX, Humira), HTN, h/o disseminated Histoplasmosis, bronchiectasis, , VTE, pulmonary nodules, who presents for follow-up. Current inhaled therapy with Symbicort and Spiriva. At [facility] with ma, she was a new patient to ma formerly followed by Dr. Andujar. She had [...] DATE OF EXAM: Jul 20 2022 9:22AM [facility] 0541 - CT CHEST WO IVCON / [...] abdomen within the limits of noncontrast technique.. Perinatology Physician (topogram) images: IVC filter present IMPRESSION: Findings [...] prominent, not pathologi (more content not included)... [facility] 07-20-2022 Note HNO ID: [id number] Author: RT Edwin(R) Service: ? Author Type: Receiving Tank Operator Type: Progress Notes Filed: 07/20/2022 9:35 [...] RT Maryann(R) July 20, 2022 9:35 AM [facility] 07-20-2022 History of Presen t illness Narrative Images from the original note were not included. . [facility] [place] [facility] Patient name: Haydee Bustamante PCP: Claudine Durán MD CC: Follow-up chest CT HPI: Haydee Bustamante 77 year old female former 10 pack year smoker with PMH significant for RA (MTX, Humira), HTN, h/o disseminated Histoplasmosis, bronchiectasis, , VTE, pulmonary nodules, who presents for follow-up. Current inhaled therapy with Symbicort and Spiriva. At [facility] with me, she was a new [...] DATE OF EXAM: Jul 20 2022 9:22AM [facility] 0541 - CT CHEST WO IVCON / [...] abdomen within the limits of noncontrast technique.. Perinatology Physician (topogram) images: IVC filter present IMPRESSION: Findings [...] hemorrhage) Diverticulosis DVT, recurrent, lower extremity, acute ([facility]) 12/10/2014 Esophageal reflux Hiatal hernia 02/25/2018 Hypertension Lung nodule Personal history of unspecified urinary disorder 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 rheumatoid factor ([facility]) 03/07/2015 Dr. Hurley ([facility]) Unspecified hemorrhoids without mention of complication Hemorrhoids [...] hours as needed.^Disp: 1 Each^Rfl: 2 vit A,C,L-Ooau-Xlnbtd (OCUVITE PRESERVISION) 2,148 mcg-113 mg-45 mg-17.4mg tab^Take [...] fluticasone (FLONASE) 50 mcg/actuation nasal spray^Use 1 [place] in each nostril once daily.^Disp: 3 Each^Rfl: [...] SPINE FUSN,POST INTERBODY 2012 Dr. Armando at [facility]. Diskectomy and laminectomy PAST SURGICAL HISTORY [...] her underlying bronchiectasis Florence Terry MD [facility] [place] documented in this encounter [facility] 07-20-2022 History of Presen t illness [...] 2022 9:35 AM documented in this encounter [facility] 07-13-2022 Note HNO ID: [id number] Author: Flex Means RN Service: ? Author Type: ? Type: Progress Notes Filed: 07/13/2022 4:39 PM Note Text: pcp agrees with information PATIENT NOTIFIED OF INFORMATION [facility] 07-13-2022 Note HNO ID: [id number] Author: Flex Means RN Service: ? Author Type: ? Type: Progress Notes Filed: 07/13/2022 4:39 PM Note Text: patient had inr completed at [facility] patients inr is 1.5 (patients inr [...] 2 week inr follow up inr 07/27/22 [facility] 07-11-2022 Note HNO ID: [id number] Author: Jimbo Carias APRN.MACHINE BOOKKEEPER Service: ? Author Type: Nurse Specialist Type: [...] and COPD. HPI excerpted from previous visits: Event Specialist Food Demonstrator: William GOTTI, aortic stenosis - has 01/2021 appt Concessions Manager: Julio Medrano / Johanna Benites 6 month follow up with PFT 05/2020 Infectious disease:Ayanna Lia -histoplasmosis on Humira -follow-up in 6 months 09/2019 Industrial Illuminating Engineer:: Today reports had toe infection has completely healed. States that suture winder hand discussed possible amputation of toe but would prefer not to go that route. May see an alternate suture winder hand at [facility]. Weight: stable Exercise: walking miles most days, feeling well with this . 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 Noted macular degeneration, a Raynaud's 2 daily advised 1 year follow-up with eye doctor. Since last seen she has gone to [facility], seen by Dr. Roque Zacarias 06/26/2022 for RA, osteoporosis, degenerative disc disease, arthritis of foot, osteoarthritis of bilateral hands. 3 mo follow up and Dexa advised. Has new shoes from Rani Cowart at [facility] / [employer]. Notes foot surgery and healed foot wound. RA: controlled currently, following with janitor head. Last seen by Dr. Ambriz 07/2021 for [...] ALLERGIES Allergen Reactions Penicillins Hives Medications vit A,C,F-Xvph-Rlyrep (OCUVITE PRESERVISION) 2,148 mcg-113 mg-45 mg-17.4mg tabTake [...] fluticasone (FLONASE) 50 mcg/actuation nasal sprayUse 1 [place] in each nostril once daily.Disp: 3 EachRfl: 3 tiotropium bromide (SPIRIVA RESPIMAT) 2.5 mcg/actuation inhalerInhale 2 Puffs as instructed once daily. Inhale two puffs once daily.Disp: 3 EachRfl: 3 Irbesartan-hydroCHLOROthiazide 150-12.5 mg per tabletTake 1 tablet by mouth once daily.Disp: 90 tabletRfl: 3 SYMBICORT 160-4.5 mcg/actuation inhalerUSE 2 INHALATIONS TWICE A DAY INSTRUCT (more content not included)... [facility] 06-29-2022 Note HNO ID: [id number] Author: Jimbo Carias APRN.MACHINE BOOKKEEPER Service: ? Author Type: Nurse Specialist Type: Progress Notes Filed: 06/29/2022 2:16 PM Note Text: Continue with Coumadin dosing unchanged and check INR in 2 weeks [facility] 06-29-2022 History of Presen t illness Narrative Continue with Coumadin dosing unchanged and check INR in 2 weeks patient had inr completed at [facility] patients inr is 2.1 (patients inr range [...] since dose change documented in this encounter [facility] 06-29-2022 Note HNO ID: [id number] Author: Flex Means RN Service: ? Author Type: ? Type: Progress Notes Filed: 06/29/2022 2:16 PM Note Text: patient had inr completed at [facility] patients inr is 2.1 (patients inr range [...] the first normal reading since dose change [facility] 06-22-2022 Note HNO ID: [id number] Author: Maritza Preston LPN Service: ? Author Type: ? Type: Progress Notes Filed: 06/22/2022 3:37 PM Note Text: Patient notified of change in dosage, verbalized understanding. Anticoag Tracker updated. Maritza Preston LPN [facility] 06-22-2022 Note HNO ID: [id number] Author: Jimbo Carias APRN.MACHINE BOOKKEEPER Service: ? Author Type: Nurse Specialist Type: Progress Notes Filed: 06/22/2022 3:37 PM Note Text: Coumadin 5 mg today and tomorrow then 5 mg Gil Wedsunday and 7.5 mg all other days. Recheck INR in 1 week [facility] 06-22-2022 Note HNO ID: [id number] Author: Flex Means RN Service: ? Author Type: ? Type: Progress Notes Filed: 06/22/2022 3:37 PM Note Text: patient had inr completed at [facility] patients inr is 2.9 (patients [...] 1 week follow up inr on 06/29/22 [facility] 06-09-2022 Note HNO ID: [id number] Author: Flex Means RN Service: ? Author Type: ? Type: Progress Notes Filed: 06/09/2022 4:06 PM Note Text: pcp agrees [facility] 06-09-2022 Note HNO ID: [id number] Author: Flex Means RN Service: ? Author Type: ? Type: Progress Notes Filed: 06/09/2022 4:06 PM Note Text: patient had inr completed at [facility] patients inr is 1.6 (patients inr [...] INR since coumadin is just slight under [facility] 05-23-2022 Miscellaneous Notes Noted Message left on [...] rescheduled. Lani from Dr Rani Cowart's office [facility] states they received a signed clearance from [...] is scheduled for surgery tomorrow morning. PH: [phone] X [phone] FAX: [phone]. Maricarmen Jacobs LPN documented in this encounter [facility] 05-04-2022 Note HNO ID: [id number] Author: Jimbo Carias APRN.TYLOR Service: ? Author Type: Nurse Specialist Type: Progress Notes Filed: 05/04/2022 3:52 PM Note Text: Continue Coumadin dose unchanged and check INR in 1 month [facility] 05-04-2022 History of Presen t illness Narrative Continue Coumadin dose unchanged and check INR in 1 month patient had inr completed at [facility] patients inr is 2.0 (patients inr range [...] follow up INR. documented in this encounter [facility] 05-04-2022 Note HNO ID: [id number] Author: Flex Means RN Service: ? Author Type: ? Type: Progress Notes Filed: 05/04/2022 3:52 PM Note Text: patient had inr completed at [facility] patients inr is 2.0 (patients inr range [...] 1 month (06/08/22) for follow up INR. [facility] 04-06-2022 Note HNO ID: [id number] Author: Jimbo Carias APRN.CNS Service: ? Author Type: Nurse Specialist Type: Progress Notes Filed: 04/06/2022 3:05 PM Note Text: Continue with Coumadin dose unchanged and check INR in 4 weeks [facility] 04-06-2022 History of Presen t illness Narrative Continue with Coumadin dose unchanged and check INR in 4 weeks patient had inr completed at [facility] patients inr is 2.0 (patients inr range [...] follow up INR. documented in this encounter [facility] 04-06-2022 Note HNO ID: [id number] Author: Flex Means RN Service: ? Author Type: ? Type: Progress Notes Filed: 04/06/2022 3:05 PM Note Text: patient had inr completed at [facility] patients inr is 2.0 (patients inr range [...] 4 weeks (05/04/22) for follow up INR. [facility] 03-30-2022 Note HNO ID: [id number] Author: Flex Means RN Service: ? Author Type: ? Type: Progress Notes Filed: 03/30/2022 3:57 PM Note Text: PATIENT NOTIFIED OF INFORMATION via detailed message [facility] 03-30-2022 History of Presen t illness Narrative PATIENT NOTIFIED OF INFORMATION via detailed message Coumadin 5 mg today then resume previous dosing -5 mg Gil Sunday and 7.5 mg all other days and check INR in 1 week patient had inr completed at [facility] patients inr is 2.3 (patients inr range [...] inr on 04/06/22 documented in this encounter [facility] 03-30-2022 Note HNO ID: [id number] Author: Jimbo Carias APRN.CNS Service: ? Author Type: Nurse Specialist Type: Progress Notes Filed: 03/30/2022 3:57 PM Note Text: Coumadin 5 mg today then resume previous dosing -5 mg Sunday and 7.5 mg all other days and check INR in 1 week [facility] 03-30-2022 Note HNO ID: [id number] Author: Flex Means RN Service: ? Author Type: ? Type: Progress Notes Filed: 03/30/2022 3:57 PM Note Text: patient had inr completed at [facility] patients inr is 2.3 (patients inr range [...] 1 week follow up inr on 04/06/22 [facility] 03-13-2022 History of Presen t illness Narrative This note was created using [employer]itro PDFriter. Subjective Haydee Bustamante is a 76 year old female. Patient presents with: 4 month follow up SUBJECTIVE: Haydee Bustamante is a 76 year old year old lady here today for 4 month follow up appointment for review of medical conditions. Following with eye doctor. Has early macular degeneration. Given glasses for it. Having foot surgery at [facility] May 19. Told will be extensive--straighten all [...] Anemia Bone marrow involvement with histoplasmosis Bronchiectasis ([facility]) COPD (chronic obstructive pulmonary disease) ([facility]) Disseminated histoplasmosis Colitis, immunosuppression, 01/2018. Diverticulosis of colon (without mention of hemorrhage) Diverticulosis DVT, recurrent, lower extremity, acute ([facility]) 12/10/2014 Esophageal reflux Hiatal hernia 02/25/2018 Hypertension Personal history of unspecified urinary disorder 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 rheumatoid factor ([facility]) 03/07/2015 Dr. Hurley ([facility]) Unspecified hemorrhoids without mention of complication Hemorrhoids Current Outpatient Medications Medication Sig naproxen (NAPROSYN) 500 mg tablet Take 1 tablet by mouth twice daily as needed. Take with food gabapentin (NEURONTIN) 300 mg capsule Take 1 capsule by mouth twice daily. fluticasone (FLONASE) 50 mcg/actuation nasal spray Use 1 [place] in each nostril once daily. tiotropium bromide [...] factor (HCC) M05.79 5. COPD without exacerbation ([facility]) J44.9 6. Bronchiectasis without complication ([facility]) J47.9 7. Acquired hammertoe of left foot [...] and as needed for preop eval for suture winder hand. Noted that has not needed bridging Lovenox when has been off coumadin. Continue present management with anticoagulation. .BP controlled. Continue present management. Claudine Durán MD documented in this encounter [facility] 02-02-2022 History of Presen t illness Narrative Continue with Coumadin dose unchanged check INR in 4 weeks patient had inr completed at [facility] patients inr is 2.0 (patients inr range [...] follow up INR. documented in this encounter [facility] 01-17-2022 Miscellaneous Notes Last office visit: 11/10/21 Next appointment scheduled: 03/13/22 Patient phones requesting refills as follows: Requested Prescriptions Pending Prescriptions Disp Refills naproxen (NAPROSYN) 500 mg tablet 120 tablet 3 Sig: Take 1 tablet by mouth twice daily as needed. Take with food Please review and advise. Geni Cintron LPN documented in this encounter [facility] 01-11-2022 Miscellaneous Notes Spoke with pt and information listed below given. Pt verbalizes understanding. She will get the labs when they are due. Lynne Mann LPN Patient gets labs done for janitor head so labs are up to date The [...] Lynne Mann LPN documented in this encounter [facility] 01-05-2022 History of Presen t illness Narrative per dr haynes he agrees with information patient had inr completed at [facility] patients inr is 2.2 (patients inr range [...] follow up INR. documented in this encounter [facility] 12-22-2021 History of Presen t illness Narrative PATIENT NOTIFIED OF INFORMATION Recommend Coumadin 7.5 mg today. Then resume usual dosing 5 mg Sunday and 7.5 mg all other days. Check INR 2 weeks patient had inr completed at [facility] patients inr is 1.4 (patients inr range [...] inr on 01/05/22 documented in this encounter [facility] 11-29-2021 History of Presen t illness Narrative Images from the original note were not included. . [facility] [place] Note Patient name: Haydee Bustamante PCP: Claudine Durán MD CC: Follow-up lung disease HPI: Haydee Bustamante 76 year old female former [id number] smoker having quit in 1989 with PMH [...] Bronchiectasis (HCC) COPD (chronic obstructive pulmonary disease) ([facility]) Disseminated histoplasmosis Colitis, immunosuppression, 01/2018. Diverticulosis of colon (without mention of hemorrhage) Diverticulosis DVT, recurrent, lower extremity, acute ([facility]) 12/10/2014 Esophageal reflux Hiatal hernia 02/25/2018 Hypertension Personal history of unspecified urinary disorder 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 rheumatoid factor ([facility]) 03/07/2015 Dr. Hurley ([facility] Unspecified hemorrhoids without mention of complication Hemorrhoids ALLERGIES Allergen Reactions Penicillins Hives fluticasone (FLONASE) 50 mcg/actuation nasal spray^Use 1 [place] in each nostril once daily.^Disp: 3 Each^Rfl: [...] SPINE FUSN,POST INTERBODY 2012 Dr. Armando at [facility]. Diskectomy and laminectomy PAST SURGICAL HISTORY [...] treatment per rheumatology Florence Terry MD [facility] [place] documented in this encounter [facility] 11-24-2021 Miscellaneous Notes error documented in this encounter [facility] 11-10-2021 History of Presen t illness [...] and COPD. HPI excerpted from previous visit: Event Specialist Food Demonstrator: William GOTTI, aortic stenosis - has 01/2021 appt Concessions Manager: Julio Medrano / Johanna Benites 6 month follow up with PFT 05/2020 Infectious disease:Ayanna Lai -histoplasmosis on Humira -follow-up in 6 months 09/2019 Industrial Illuminating Engineer:: Today reports had toe infection has completely healed. States that suture winder hand discussed possible amputation of toe but would prefer not to go that route. May see an alternate suture winder hand at [facility]. States took blood pressure medication today. Continues [...] 12 mos RA: controlled currently, following with janitor head. OAC: no bleeding difficulties. Occasional bruising. Spiriva [...] fluticasone (FLONASE) 50 mcg/actuation nasal spray^Use 1 [place] in each nostril once daily.^Disp: 3 Bottle^Rfl: 3 (Patient not taking: No sig reported) PAST MEDICAL HISTORY Diagnosis Date Blood dyscrasia Disseminated histoplasmosis Colitis, immunosuppression, 01/2018. Diverticulosis of colon (without mention of hemorrhage) Diverticulosis DVT, recurrent, lower extremity, acute ([facility]) 12/10/2014 Esophageal reflux Hiatal hernia 02/25/2018 Hypertension Personal history of unspecified urinary disorder 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 rheumatoid factor ([facility]) 03/07/2015 Dr. Hurley ([facility]) Unspecified hemorrhoids without mention of complication Hemorrhoids [...] Abs Lymph 1.00 - 4.00 k/uL 1.64 Greeley% % 8.0 Abs [place] <0.87 k/uL 0.60 Eosin% % 2.7 Abs [...] (HCC) - ICD9: 496, ICD10: J44.9 - [id number] BL 3. Encounter for immunization - ICD9: V03.89, ICD10: Z23 - [employer] COVID-19 BIVALENT BOOSTER VACCINE, AGE 12+ YR - INFLUENZA SEASONAL QUADRIVALENT HIGH DOSE AGE 65+ 4. Gastroesophageal reflux disease without esophagitis - ICD9: 530.81, ICD10: K21.9 5. Bronchiectasis without complication (HCC) - ICD9: 494.0, ICD10: J47.9 6. COPD without exacerbation (HCC) - ICD9: 496, ICD10: J44.9 7. Aortic stenosis with bicuspid valve - ICD9: 746.3, 746.4, ICD10: Q23.0, Q23.1 Jimbo Carias APRN.MACHINE BOOKKEEPER] Jimbo Carias APRN.CNS Medical Decision Making: Problems: Moderate: 1+ chronic illnesses with change and 2+ stable chronic illnesses Risk: Moderate: Drug management Medical Decision Making Level: 4 - Moderate documented in this encounter [facility] 11-09-2021 Miscellaneous Notes Filed order patients orders for coumadin clinic inr's has at this time. new order has been pended for approval if possible so that patient can continue to get inr's completed thru the coumadin clinic. coumadin clinic nurse only needs called if order can not be approved. documented in this encounter [facility] 11-08-2021 Miscellaneous Notes Patient has been [...] Ruby Tobin RN documented in this encounter [facility] 11-01-2021 Instructions Yonas Louise - 11/01/2021 9:29 AM EDT Your ulceration is now healed Ok to continue with padding as needed F/u as needed documented in this encounter [facility] 11-01-2021 History of Presen t illness [...] positive rheumatoid factor (HCC) 03/07/2015 Dr. Hurley ([facility]) Unspecified hemorrhoids without mention of complication Hemorrhoids [...] 5 mg tablet Take 7.5 mg , Wed, Anabel, Sat, Sun; and 5 mg on [...] (FLONASE) 50 mcg/actuation nasal spray Use 1 [place] in each nostril once daily. (Patient not [...] SPINE FUSN,POST INTERBODY 2012 Dr. Armando at [facility]. Diskectomy and laminectomy PAST SURGICAL HISTORY [...] stopped wrapping it. documented in this encounter [facility] 10-27-2021 History of Presen t illness Narrative patient had inr completed at [facility] patients inr is 1.6 (patients inr range [...] follow up INR. documented in this encounter [facility] 10-18-2021 Instructions Yonas Louise - 10/18/2021 9:[address] aquacel on ulceration daily Place lambs wool or guaze horizontally between the interspace Secure lambs wool or guaze with blanca wrap or tape Wear surgical shoe or wide sneaker or even sandal to avoid pressure on 5th toe documented in this encounter [facility] 10-18-2021 History of Presen t illness [...] hemorrhage) Diverticulosis DVT, recurrent, lower extremity, acute ([facility]) 12/10/2014 Esophageal reflux Hiatal hernia 02/25/2018 Hypertension Personal history of unspecified urinary disorder 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 rheumatoid factor ([facility]) 03/07/2015 Dr. Hurley ([facility]) Unspecified hemorrhoids without mention of complication Hemorrhoids [...] (FLONASE) 50 mcg/actuation nasal spray Use 1 [place] in each nostril once daily. (Patient not [...] SPINE FUSN,POST INTERBODY 2011 Dr. Armando at [facility]. Diskectomy and laminectomy PAST SURGICAL HISTORY [...] thickness Yonas Louise DPM Podiatry [address] [facility] [address] Dept: [phone] Dept AMB ROOMING INTAKE FLOWSHEET DATA Pain Pain Level: 4 Pain Location: Toe Description: Sharp, Raw, Sore Duration Amount of Time: 2 Duration Units: Months Frequency: Intermittent Intervention/Comfort measure: Reposition, Relaxation Patient presents with: Right Foot - Established Patient, Follow Up, Pain, Blister Imelda Quijano LPN documented in this encounter [facility] 10-18-2021 Miscellaneous Notes Pt only has [...] Muna Porter RN documented in this encounter [facility] 10-12-2021 History of Presen t illness [...] 2021 10:06 AM documented in this encounter [facility] 10-12-2021 History of Presen t illness [...] 2021 9:56 AM documented in this encounter [facility] 09-29-2021 History of Presen t illness Narrative Continue current Coumadin dose unchanged and check INR in 4 weeks patient had inr completed at [facility] patients inr is 2.0 (patients inr range [...] follow up INR. documented in this encounter [facility] 09-20-2021 Instructions Jimbo Carias APRN.CNS - 09/20/2021 1:55 PM EDT Keep your toe clean dry and . Was with soap and water daily, dry thoroughly. Use lambswool between toes. Avoid tight shoes documented in this encounter [facility] 09-20-2021 History of Presen t illness [...] and COPD. 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 Histoplasmosis: notes resolved symptoms. OAC: no bleeding difficulties. Occasional bruising. Spiriva and intermittent albuterol has helped with cough. Presents today for foot lesion. She notes she is been wearing tight shoes for a [employer] production at [facility] for about a month. She notes [...] (FLONASE) 50 mcg/actuation nasal spray Use 1 [place] in each nostril once daily. econazole (SPECTAZOLE) [...] positive rheumatoid factor (HCC) 03/07/2015 Dr. Hurley ([facility]) Unspecified hemorrhoids without mention of complication Hemorrhoids [...] Abs Lymph 1.00 - 4.00 k/uL 1.64 Greeley% % 8.0 Abs [place] <0.87 k/uL 0.60 Eosin% % 2.7 Abs [...] 3 - Low documented in this encounter [facility] 09-05-2021 Miscellaneous Notes September 05, 2021 PID: [id number] Haydee Bustamante [address] [place] [address] Dear Ms. Bustamante, Your recent breast imaging exam on 09/05/2021 showed a possible finding that requires additional imaging studies for a complete evaluation. Most such findings are probably benign (not cancer). If you have a healthcare provider who ordered/prescribed your screening mammogram: Please call [phone] or [phone]: [phone] to schedule an appointment for your additional [...] and reports are kept on file at [facility] as part of your permanent medical record, and are available for your continuing care. Thank you for allowing us to help in meeting your health care needs. Sincerely, Dr. Bell Interpreting Radiologist [facility] (Additional imaging) documented in this encounter [facility] 09-05-2021 History of Presen t illness [...] PERIPHERAL IV DATA: Not applicable SIGNED BY: Emi Gloria Bridgestream September 05, 2021 9:28 AM documented in this encounter [facility] 08-23-2021 History of Presen t illness Narrative per verbal order by second steward provider dr rowell she agrees with information patient had inr completed at [facility] patients inr is 2.2 (patients inr range [...] follow up INR. documented in this encounter [facility] 08-12-2021 History of Presen t illness Narrative Images from the original note were not included. [facility] SECTION OF [facility] OUTPATIENT VISIT DATE August 12, 2021 PRIMARY CARE PHYSICIAN: Claudine Durán [address] [place] [address] HISTORY OF PRESENT ILLNESS: Ms. Bustamante is a 76 year old female. The patient returns for follow-up due to history of known bicuspid aortic valve stenosis. Previous stenosis has been evaluation as showed this to be mild. Additional history includes hypertension. 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 She is planning on doing [place] again this summer. She denies chest discomfort, [...] positive rheumatoid factor (HCC) 03/07/2015 Dr. Hurley ([facility]) Unspecified hemorrhoids without mention of complication Hemorrhoids [...] SPINE FUSN,POST INTERBODY 2011 Dr. Armando at [facility]. Diskectomy and laminectomy PAST SURGICAL HISTORY [...] (FLONASE) 50 mcg/actuation nasal spray Use 1 [place] in each nostril once daily. econazole (SPECTAZOLE) [...] Department of Medicine and Division of Cardiology, [facility] Social Services Technicianpump technician [facility] Social Services Technician of Congestive Heart Failure Clinic [facility] Cardiology Office Social Services Technician [facility] Staff Event Specialist Food Demonstrator, [place] and Edilma Pierce Department of Cardiovascular Medicine/Heart and [facility] [place], [facility] Clinical Design Tech Profressor of Medicine, [facility] Please note: This note has been produced using speech recognition software and may contain errors related to that system including madelyn, punctuation, spelling, words, gender and phrases that may be inappropriate. documented in this encounter [facility] 07-29-2021 Miscellaneous Notes Pharmacy faxed requesting the following refill. Pending Prescriptions Disp Refills SYMBICORT 160 MCG-4.5 MCG/ACTUATION HFA AEROSOL INHALER 30.6 g 4 Sig: USE 2 INHALATIONS TWICE A DAY INSTRUCTED YULIANA: Yes Patient last appointment: [address] [place] [address] Anudjar Patient Phone numbers: [phone] (home) Request is for script(s) to be escript to pharmacy. Nahomy Mercado documented in this encounter [facility] 07-25-2021 History of Presen t illness Narrative pcp agrees with information patient had inr completed at [facility] patients inr is 1.8 (patients inr range [...] follow up INR. documented in this encounter [facility] 07-11-2021 History of Presen t illness Narrative This note was created using Nitro PDFriter. Subjective Haydee Bustamante is a 76 year [...] toe surgery for now--has show. 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 Noted fell when missed top step. [...] positive rheumatoid factor (HCC) 03/07/2015 Dr. Hurley ([facility] Unspecified hemorrhoids without mention of complication Hemorrhoids [...] (FLONASE) 50 mcg/actuation nasal spray Use 1 [place] in each nostril once daily. econazole (SPECTAZOLE) [...] Abs Lymph 1.00 - 4.00 k/uL 1.64 Greeley% % 8.0 Abs [place] <0.87 k/uL 0.60 Eosin% % 2.7 Abs [...] 1.7 The 10-year ASCVD risk score (Koby KIM JrRc, et al., 2013) is: 17.2% Values used [...] vaccine - ICD9: V04.89, ICD10: Z23 - [employer] COVID-19 VACCINE, AGE 12+ YR (ARIAS TOP) 6. COPD without exacerbation (HCC) - ICD9: 496, ICD10: J44.9 Continue present management. Discussed Dr. Andujar's instructions to use albuterol before activity that causes coughing 7. Bronchiectasis without complication (HCC) - ICD9: 494.0, ICD10: J47.9 As noted above. Fall discussed. Arthritis discussed. Claudine Durán MD documented in this encounter [facility] 06-30-2021 History of Presen t illness Narrative inSight CDM Engagement Provider Action/FYI: Spk with Pt she denies new or worsening COPD symptoms or needs. Pt plans to have her Covid Booster at upcoming Appt with 07/11/21 Contact Made with Patient: Yes Patient identified by name and . Discussed care with patient Shante venegas name is Katarzyna Malcolm RN your Technician Inventory Specialist from Claudine Durán MD office at the [facility]. I am reaching out today because [...] Bustamante. This is Katarzyna Malcolm RN your Technician Inventory Specialist from the [facility]. I am calling to check in with you concerning the MyChart questionnaire you have been receiving from me. I will call you again tomorrow and am looking forward to speaking with you. (Technician Inventory Specialist enters next day in next patient outreach ) Katarzyna Malcolm RN June 29, 2021 3:31 PM documented in this encounter [facility] 06-09-2021 History of Presen t illness Narrative per second steward provider dr garza patient is to continue same dose PATIENT NOTIFIED OF INFORMATION patient had inr completed at [facility] patients inr is 1.6 (patients inr range [...] follow up INR. documented in this encounter [facility] 06-06-2021 Miscellaneous Notes GEREMIAS: 03/14/2021 Last [...] Sergey Ramirez Ma documented in this encounter [facility] 2021 Instructions Julio Andujar MD - [...] I am retiring from the staff of [facility] and the practice of Medicine on [...] Johanna Benites PA-C. documented in this encounter [facility] 2021 History of Presen t illness Narrative [facility] [place], 2021: Name: Haydee Bustamante : 1945 INTERVAL [...] months, sooner if needed. Julio Andujar MD, [facility] [place] [facility] [address] [place] [id number] P: [phone] F: [phone] [email or web address] documented in this encounter [facility] 05-26-2021 History of Presen t illness Narrative second steward provider agrees with information patient had inr completed at [facility] patients inr is 1.6 (patients inr range [...] just slightly low documented in this encounter [facility] 05-20-2021 History of Presen t illness Narrative POPULATION HEALTH NAVIGATION OUTREACH Action/FYI: Mildred Care Gaps Discuss/Due: Advance Directives, Screening Mammogram due 06/02/21 or after Outcome: Patient Declined Scheduling Pt identified by name and : YES, via phone Outreach Outcome/Action Spoke to patient or caregiver: Patient declined Reason for Outreach Care Gap or Scheduling/Wellness visits Payer: Payor: [employer]ICARE / Plan: [employer] MEDICARE PPO / [...] 2021 2:45 PM documented in this encounter [facility] 03-14-2021 History of Presen t illness Narrative This note was created using Spartz. Subjective Haydee Bustamante is a 75 year [...] positive rheumatoid factor (HCC) 03/07/2015 Dr. Hurley ([facility]) Unspecified hemorrhoids without mention of complication Hemorrhoids [...] (FLONASE) 50 mcg/actuation nasal spray Use 1 [place] in each nostril once daily. potassium chloride [...] good control - Follows with Dr. Ambriz ([facility] cardiology) - Continue current medication(s) [...] 714.0, ICD10: M05.79 Stable on meds through [facility]--Dr. Hurley Gets labs through his office. Lipid ordered. I spent a total of at least 30 minutes on the date of the service which included [id number] patient care, completing clinical documentation, obtaining and/or reviewing separately obtained history, performing a medically appropriate examination, counseling and educating the patient/family/caregiver and ordering medications, tests, or procedures. Claudine Durán MD documented in this encounter [facility] documented as of this encounter (statuses as of 05/20/2021) [facility] History of Past illness Narrative* Problem [...] of this encounter (statuses as of 05/22/2021) [facility] of Past [facility] Narrative* Problem [...] of this encounter (statuses as of 05/26/2021) [facility] of Past [facility] Narrative* Problem [...] of this encounter (statuses as of 06/06/2021) [facility] Narrative* Problem [...] of this encounter (statuses as of 06/09/2021) [facility] Narrative* Problem [...] of this encounter (statuses as of 06/30/2021) [facility] Narrative* Problem [...] of this encounter (statuses as of 07/25/2021) [facility] Narrative* Problem [...] of this encounter (statuses as of 08/01/2021) [facility] Narrative* Problem [...] of this encounter (statuses as of 08/12/2021) [facility] Narrative* Problem [...] of this encounter (statuses as of 08/23/2021) [facility] Narrative* Problem [...] of this encounter (statuses as of 09/06/2021) [facility] Narrative* Problem [...] of this encounter (statuses as of 09/06/2021) [facility] Narrative* Problem [...] of this encounter (statuses as of 09/07/2021) [facility] Narrative* Problem [...] of this encounter (statuses as of 09/20/2021) [facility] Narrative* Problem [...] of this encounter (statuses as of 09/29/2021) [facility] Narrative* Problem [...] of this encounter (statuses as of 10/13/2021) [facility] Narrative* Problem [...] of this encounter (statuses as of 10/13/2021) [facility] Narrative* Problem [...] of this encounter (statuses as of 10/18/2021) [facility] Narrative* Problem [...] of this encounter (statuses as of 10/18/2021) [facility] Narrative* Problem [...] of this encounter (statuses as of 10/19/2021) [facility] Narrative* Problem [...] of this encounter (statuses as of 10/27/2021) [facility] Narrative* Problem [...] of this encounter (statuses as of 11/01/2021) [facility] Narrative* Problem [...] of this encounter (statuses as of 11/08/2021) [facility] Narrative* Problem [...] of this encounter (statuses as of 11/10/2021) [facility] Narrative* Problem [...] of this encounter (statuses as of 11/10/2021) [facility] Narrative* Problem [...] of this encounter (statuses as of 11/29/2021) [facility] Narrative* Problem [...] of this encounter (statuses as of 12/04/2021) [facility] Narrative* Problem [...] of this encounter (statuses as of 12/22/2021) [facility] Narrative* Problem [...] of this encounter (statuses as of 12/27/2021) [facility] Narrative* Problem [...] of this encounter (statuses as of 01/05/2022) [facility] Narrative* Problem [...] of this encounter (statuses as of 01/11/2022) [facility] Narrative* Problem [...] of this encounter (statuses as of 01/17/2022) [facility] Narrative* Problem [...] of this encounter (statuses as of 01/17/2022) [facility] Narrative* Problem [...] of this encounter (statuses as of 02/02/2022) [facility] Narrative* Problem [...] of this encounter (statuses as of 02/22/2022) [facility] Narrative* Problem [...] of this encounter (statuses as of 02/24/2022) [facility] Narrative* Problem [...] of this encounter (statuses as of 03/14/2022) [facility] Narrative* Problem [...] of this encounter (statuses as of 03/30/2022) [facility] Narrative* Problem [...] of this encounter (statuses as of 04/06/2022) [facility] Narrative* Problem [...] of this encounter (statuses as of 04/21/2022) [facility] Narrative* Problem [...] of this encounter (statuses as of 05/04/2022) [facility] Narrative* Problem [...] of this encounter (statuses as of 05/24/2022) [facility]* Problem [...] of this encounter (statuses as of 06/01/2022) [facility]* Problem [...] of this encounter (statuses as of 06/29/2022) [facility]* Problem [...] of this encounter (statuses as of 07/24/2022) [facility]* Problem [...] of this encounter (statuses as of 07/24/2022) [facility]* Problem [...] of this encounter (statuses as of 08/13/2022) [facility]* Problem [...] of this encounter (statuses as of 08/15/2022) [facility]* Problem [...] of this encounter (statuses as of 09/08/2022) [facility]* Problem [...] of this encounter (statuses as of 09/11/2022) [facility] History of Past illness Narrative* Problem [...] of this encounter (statuses as of 09/15/2022) [facility] History of Past illness Narrative* Problem [...] of this encounter (statuses as of 09/26/2022) [facility] History of Past illness Narrative* Problem [...] of this encounter (statuses as of 10/10/2022) [facility] History of Past illness Narrative* Problem [...] of this encounter (statuses as of 10/13/2022) [facility] History of Past illness Narrative* Problem [...] of this encounter (statuses as of 10/27/2022) [facility] History of Past illness Narrative* Problem [...] of this encounter (statuses as of 10/27/2022) [facility] of Past illness Narrative* Problem [...] of this encounter (statuses as of 10/31/2022) [facility] Past illness Narrative* Problem [...] of this encounter (statuses as of 10/31/2022) [facility] Past illness Narrative* Problem [...] of this encounter (statuses as of 11/02/2022) [facility] Past [facility] Narrative* Problem [...] of this encounter (statuses as of 11/10/2022) [facility] Narrative* Problem [...] of this encounter (statuses as of 11/23/2022) [facility] Past [facility] Narrative* Problem [...] of this encounter (statuses as of 12/07/2022) [facility] Past illness Narrative* Problem [...] of this encounter (statuses as of 12/07/2022) [facility] Narrative* Problem [...] of this encounter (statuses as of 12/15/2022) [facility] Past [facility] Narrative* Problem [...] of this encounter (statuses as of 12/20/2022) [facility] Narrative* Problem [...] of this encounter (statuses as of 12/24/2022) [facility] Past illness Narrative* Problem [...] of this encounter (statuses as of 12/24/2022) [facility] Narrative* Problem [...] of this encounter (statuses as of 01/04/2023) [facility] Narrative* Problem [...] of this encounter (statuses as of 01/05/2023) [facility] Narrative* Problem [...] of this encounter (statuses as of 01/10/2023) [facility] Narrative* Problem [...] of this encounter (statuses as of 01/18/2023) [facility] Narrative* Problem [...] of this encounter (statuses as of 01/24/2023) [facility] Narrative* Problem [...] of this encounter (statuses as of 02/03/2023) [facility] Narrative* Problem [...] of this encounter (statuses as of 02/08/2023) [facility] Narrative* Problem [...] of this encounter (statuses as of 03/24/2023) [facility] Narrative* Problem [...] as of this encounter (statuses as of 03/27/2023) [facility] Diagnosis Screening mammogram, encounter for- Primary [facility] Diagnosis Essential hypertension- Primary Unspecified essential hypertension History of COVID-19 Cough Bronchiectasis without complication (HCC) Bronchiectasis without acute exacerbation Gastroesophageal reflux disease without esophagitis Esophageal reflux Aortic stenosis with bicuspid valve 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 rheumatoid factor (HCC) [facility] Diagnosis Embolism and thrombosis (HCC) Embolism and thrombosis of unspecified site [facility] Diagnosis Moderate COPD (chronic obstructive pulmonary disease) (HCC)- Primary Chronic airway obstruction, not elsewhere classified Bronchiectasis without complication (HCC) Bronchiectasis without acute exacerbation Centrilobular emphysema (HCC) Other emphysema [facility] Diagnosis Cough due to bronchospasm Acute bronchospasm [facility] Diagnosis Embolism and thrombosis (HCC) Embolism and thrombosis of unspecified site [facility] Diagnosis Personal history of DVT (deep vein thrombosis)- Primary Personal history of venous thrombosis and embolism [facility] Diagnosis Aortic stenosis with bicuspid valve- Primary Essential hypertension Unspecified essential hypertension [facility] Diagnosis Personal history of DVT (deep vein thrombosis)- Primary Personal history of venous thrombosis and embolism [facility] Diagnosis Encounter for screening mammogram for breast cancer [facility] Diagnosis Gastroesophageal reflux disease without esophagitis- Primary Esophageal reflux Other viral warts Elevated LDL cholesterol level Pure hypercholesterolemia Essential hypertension Unspecified essential hypertension Need for COVID-19 vaccine COPD without exacerbation (HCC) Bronchiectasis without complication (HCC) Bronchiectasis without acute exacerbation [facility] Diagnosis Toe infection- Primary Unspecified local infection of skin and subcutaneous tissue Sinobronchitis Unspecified sinusitis (chronic) [facility] Diagnosis Personal history of DVT (deep vein thrombosis)- Primary Personal history of venous thrombosis and embolism [facility] Diagnosis Abnormal mammogram Abnormal mammogram, unspecified [facility] Diagnosis Ulcer of toe of left foot, limited to breakdown of skin (HCC)- Primary Hammer toe of left foot Onychodystrophy Other specified disease of nail [facility] Diagnosis Embolism and thrombosis (HCC) Embolism and thrombosis of unspecified site [facility] Ulcer of toe of left foot, limited to breakdown of skin (HCC) Hammer toe of left foot [facility] Diagnosis Ulcer of toe of left foot, limited to breakdown of skin (HCC)- Primary Hammer toe of left foot Hallux rigidus of left foot Hallux rigidus [facility] Diagnosis COPD without exacerbation (HCC) Essential hypertension Unspecified essential hypertension [facility] Diagnosis Essential hypertension- Primary Unspecified essential hypertension Chronic obstructive pulmonary disease, unspecified COPD type (HCC) Encounter for immunization Need for other specified prophylactic vaccination against single bacterial disease Gastroesophageal reflux disease without esophagitis Esophageal reflux Bronchiectasis without complication (HCC) Bronchiectasis without acute exacerbation Aortic stenosis with bicuspid valve [facility] Diagnosis Lung nodules- Primary Other nonspecific abnormal finding of lung field Bronchiectasis without complication (HCC) Bronchiectasis without acute exacerbation Chronic obstructive pulmonary disease, unspecified COPD type (HCC) 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 rheumatoid factor (HCC) [facility] Diagnosis Personal history of DVT (deep vein thrombosis)- Primary Personal history of venous thrombosis and embolism [facility] Diagnosis 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 rheumatoid factor (HCC) Low back pain with right-sided sciatica, unspecified back pain laterality, unspecified chronicity [facility] Diagnosis 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 rheumatoid factor (HCC) Low back pain with right-sided sciatica, unspecified back pain laterality, unspecified chronicity Pseudogout Other disorder of calcium metabolism [facility] Diagnosis Personal history of DVT (deep vein thrombosis)- Primary Personal history of venous thrombosis and embolism [facility] Diagnosis Essential hypertension- Primary Unspecified essential hypertension Chronic anticoagulation Long-term (current) use of 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 Aortic stenosis with bicuspid valve 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 rheumatoid factor (HCC) COPD without exacerbation (HCC) Bronchiectasis without complication (HCC) Bronchiectasis without acute exacerbation Acquired hammertoe of left foot Early dry stage nonexudative age-related macular degeneration of both eyes [facility] Diagnosis Personal history of DVT (deep vein thrombosis)- Primary Personal history of venous thrombosis and embolism [facility] Diagnosis Personal history of DVT (deep [...] of calcium metabolism [facility] current use of anticoagulant therapy- Primary Long-term (current) use of 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 [facility] Diagnosis Essential hypertension- Primary Unspecified [...] of 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 [facility] Chronic anticoagulation Long-term (current) use of 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 [facility] Personal history of DVT (deep vein thrombosis)- Primary Personal history of venous thrombosis and embolism [facility] Diagnosis Embolism and thrombosis (HCC)- Primary Embolism and thrombosis of unspecified site [facility] Diagnosis DDD (degenerative disc disease), lumbar- Primary Degeneration of lumbar or lumbosacral intervertebral disc Hip pain, acute, left Age-related osteoporosis without current pathological fracture Senile osteoporosis [facility] Diagnosis Embolism and thrombosis (HCC)- Primary Embolism and thrombosis of unspecified site [facility] Diagnosis 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 rheumatoid factor (HCC) Low back pain with right-sided sciatica, unspecified back pain laterality, unspecified chronicity [facility] Diagnosis Lung nodules Other nonspecific abnormal finding of lung field [facility] Diagnosis Encounter for screening mammogram for breast cancer [facility] Diagnosis Encounter for immunization- Primary Need for other specified prophylactic vaccination against single bacterial disease [facility] Diagnosis Embolism and thrombosis (HCC)- Primary Embolism and thrombosis of unspecified site [facility] Diagnosis Personal history of DVT (deep vein thrombosis)- Primary Personal history of venous thrombosis and embolism [facility] Diagnosis Acute cough- Primary [facility] Outpatient Procedure (Routine) - Authorized Specialty Diagnoses / Procedures Referred By Divya reis Referred To Contact [facility] Diagnoses Aortic stenosis with bicuspid valve Essential hypertension Procedures ECHO ECHO TTHRC R-T 2D W/WOM-MODE COMPL SPEC&COLR D William Ambriz DO [address] [place] [id number] [facility] [address] [place] [address] Referral ID Status Reason Start Date Expiration Date Visits Requested Visits Authorized [id number] Authorized Auto-Generat ed Referral 08/12/2021 08/12/2022 1 1 * Outpatient Procedure (Routine) - Closed Specialty Diagnoses / Procedures Referred By Contfabian reis Referred To Contact [facility] Diagnoses Aortic stenosis with bicuspid valve Essential hypertension Procedures ECG COMPLETE ECG ROUTINE ECG W/LEAST 12 LDS W/I&R William Ambriz DO [address] [place] [address] [facility] [address] [place] [address] Referral ID Status Reason Start Date Expiration Date V isits Requested Visits Authorized [id number] Closed Auto-Generate d Referral 08/12/2021 08/12/2022 1 [facility] Diagnostic Procedure Only (Routine) - Closed Specialty Diagnoses / Procedures Referred By Contac t Referred To Contact XR IMAGING Diagnoses Ulcer of toe of left foot, limited to breakdown of skin (HCC) Hammer toe of left foot Procedures XR FOOT GENERAL 3V AP/LAT/OBL LEFT RADEX FOOT COMPLETE MINIMUM 3 VIEWS Yonas Louise [address] [place] [address] Xr Imaging Referral ID Status Reason Start Date Expiration Date V isits Requested Visits Authorized [id number] Closed Auto-Generate d Referral 10/18/2021 11/17/2022 1 1 [facility] ([facility]ative[facility] Diagnostic Procedure Only (Routine) - Closed Specialty Diagnoses / Procedures Referred By Contac t Referred To Contact XR IMAGING Diagnoses Ulcer of toe of left foot, limited to breakdown of skin (HCC) Hammer toe of left foot Procedures XR FOOT GENERAL 3V AP/LAT/OBL LEFT RADEX FOOT COMPLETE MINIMUM 3 VIEWS Yonas Louise[address] [place] [address] Xr Imaging Referral ID Status Reason Start Date Expiration Date V isits Requested Visits Authorized [id number] Closed Auto-Generate d Referral 10/18/2021 11/17/2022 1 1 [facility] ([facility]ative)* Outpatient Procedure (Routine) - Authorized Specialty Diagnoses / Procedures Referred By Contac t Referred To [facility] Diagnoses Aortic stenosis with bicuspid valve Procedures ECHO ECHO TTHRC R-T 2D W/WOM-MODE COMPL SPEC&COLR Rachelle Wilcox APRN.RESEARCH LABORATORY MANAGER [address] [address] [facility] [address] [place] [address] Referral ID Status Reason Start Date Expiration Date Visits Requested Visits Authorized [id number] Authorized Auto-Generat ed Referral 08/29/2022 08/29/2023 1 1 [facility] Diagnostic Procedure Only (Routine) - Authorized Specialty Diagnoses / Procedures Referred By Divya reis Referred To Contact BR IMAGING Diagnoses Encounter for screening mammogram for breast cancer Procedures SABINO SCREENING W ALIZE SCREENING DIGITAL BREAST TOMOSYNTHESIS BI SCREENING MAMMOGRAPHY BI 2-VIEW BREAST INC [facility] Jimbo Carias APRN.MACHINE BOOKKEEPER [address] [place] [address] [facility] [address] [place] [address] Referral ID Status Reason Start Date Expiration Date Visits Requested Visits Authorized [id number] Authorized Auto-Generat ed Referral 10/27/2022 11/26/2023 1 1 * Diagnostic Procedure Only (Routine) - Pending Review Specialty Diagnoses / Procedures Referred By Divya reis Referred To Contact BR [facility] Diagnoses Encounter for screening mammogram for breast cancer Procedures SABINO SCREENING SCREENING MAMMOGRAPHY BI 2-VIEW BREAST INC [facility] Jimbo Carias APRN.MACHINE BOOKKEEPER [address] [place] [address] [facility] [address] [place] [address] Referral ID Status Reason Start Date Expiration Date Visits Requested Visits Authorized [id number] Pending Review Auto-Generat ed Referral 10/27/2022 11/26/2023 1 1 [facility] ([facility] Diagnostic Procedure Only (Routine) - Closed Specialty Diagnoses / Procedures Referred By Divya t Referred To Contact BR IM[facility] Diagnoses Encounter for screening mammogram for breast cancer Procedures SABINO SCREENING W ALIZE SCREENING DIGITAL BREAST TOMOSYNTHESIS BI SCREENING MAMMOGRAPHY BI 2-VIEW BREAST INC [facility] Jimbo Carias APRN.MACHINE BOOKKEEPER [address] [place] [address] [facility] [address] [place] [address] Referral ID Status Reason Start Date Expiration Date V isits Requested Visits Authorized [id number] Closed Auto-Generate d Referral 10/27/2022 11/26/2023 1 1 [facility] N[facility]ative* Diagnostic Procedure Only (Routine) - Closed Specialty Diagnoses / Procedures Referred By Divya reis Referred To Contact XR IMAGING Diagnoses Ulcer of toe of left foot, limited to breakdown of skin (HCC) Hammer toe of left foot Procedures XR FOOT GENERAL 3V AP/LAT/OBL LEFT RADEX FOOT COMPLETE MINIMUM 3 VIEWS Yonas Louise [address] [place] [address] Xr Imaging Referral ID Status Reason Start Date Expiration Date V isits Requested Visits Authorized [id number] Closed Auto-Generate d Referral 10/18/2021 11/17/2022 1 1 [facility] N[facility]* Diagnostic Procedure Only (Routine) - Closed Specialty Diagnoses / Procedures Referred By Divya t Referred To Contact BR IM[facility] Diagnoses Encounter for screening mammogram for breast cancer Procedures SABINO SCREENING W ALIZE SCREENING DIGITAL BREAST TOMOSYNTHESIS BI SCREENING MAMMOGRAPHY BI 2-VIEW BREAST INC [facility] Jimbo Carias APRN.MACHINE BOOKKEEPER [address] [place] [address] [facility] [address] [place] [address] Referral ID Status Reason Start Date Expiration Date V isits Requested Visits Authorized [id number] Closed Auto-Generate d Referral 10/27/2022 11/26/2023 1 1 [facility] Summary Purpose Family History No Family History Records FoundNo Family History Records FoundNo Family History Records FoundNo Family History Records FoundNo Family History Records Found Advance Directives No Advanced Directives Records FoundDocuments on File Type Date Recorded Patient Machine Ii Trimmer Expl anation Advance Directive(s) 02/25/2018 1:19 PM Latest Code Status on File Code Status Date Activated Date Inactivated Comments Full Code 03/02/2018 6:22 PM 03/03/2018 4:33 PM Full Code Order Discussed With: Patient Documents on File Type Date Recorded Patient Machine Ii Trimmer Expl anation Advance Directive(s) 03/24/2019 12:16 PM Advance Directive(s) 03/02/2018 11:28 AM Advance Directive(s) 02/25/2018 1:11 PM Advance Directive(s) 02/25/2018 1:19 PM Advance Directive(s) 01/25/2018 9:15 AM Advance Directive(s) 07/30/2017 2:22 PM Documents on File Type Date Recorded Patient Machine Ii Trimmer Expl anation Advance Directive(s) 03/24/2019 12:16 PM Advance Directive(s) 03/02/2018 11:28 AM Advance Directive(s) 02/25/2018 1:11 PM Advance Directive(s) 02/25/2018 1:19 PM Advance Directive(s) 01/25/2018 9:15 AM Advance Directive(s) 07/30/2017 2:22 PM Latest Code Status on File Code Status Date Activated Date Inactivated Comments Full Code 03/02/2018 6:22 PM 03/03/2018 4:33 PM Documents on File Type Date Recorded Patient Machine Ii Trimmer Expl anation Advance Directive(s) 02/25/2018 1:19 PM [...] Inactivated Comments Full Code 03/22/2023 3:19 PM 03/25/2023 9:30 PM Question Answer Comments Full Code Order Discussed With: Patient Surrogate Decision Maker Surrogate Decision Maker Name: Milena mckeon and Padmini Chang (Friends) Reason for Referral Specialty Diagnoses / Procedures Referred By Contac t Referred To Contact CT IMAGING Diagnoses Lung nodules Procedures CT CHEST WO IVCON DIAGNOSTIC COMPUTED TOMOGRAPHY THORAX W/O Florence Duncan MD [address] [place] [address] Ct Imaging Referral ID Status Reason Start Date Expiration Date Visits Requested Visits Authorized [id number] Authorized Auto-Generat ed Referral 12/29/2022 1 1 Specialty Diagnoses / Procedures Referred By Contac t Referred To Contact CT IMAGING Diagnoses Lung nodules Bronchiectasis without complication (HCC) Procedures CT CHEST WO IVCON DIAGNOSTIC COMPUTED TOMOGRAPHY THORAX W/O Florence Duncan MD [address] [place] [address] Ct Imaging Referral ID Status Reason Start Date Expiration Date Visits Requested Visits Authorized [id number] Authorized Auto-Generat ed Referral 01/23/2023 08/23/2023 1 1 Specialty Diagnoses / Procedures Referred By Contac t Referred To Contact CT IMAGING Diagnoses Lung nodules Procedures CT CHEST WO IVCON DIAGNOSTIC COMPUTED TOMOGRAPHY THORAX W/O Florence Duncan MD [address] [place] [address] [place] [address] Referral ID Status Reason Start Date Expiration Date V isits Requested Visits Authorized [id number] Closed Auto-Generate d Referral 11/29/2021 12/29/2022 1 [...] DATE CREATED AUTHOR AUTHOR'S ORGANIZ ATION 03/10/2018 [facility] DATE CREATED AUTHOR AUTHOR'S ORGANIZ ATION 05/29/2020 [facility] DATE CREATED AUTHOR AUTHOR'S ORGANIZ ATION 03/18/2023 [facility] DATE CREATED AUTHOR AUTHOR'S ORGANIZ ATION 03/30/2023 [facility] Source Comments (unrecognize d section and content) In the event this informatio n is protected by the Federal Confidentiality of Alcohol and Drug Abuse Patient Records regulations: The Federal rules restrict any use of the information to criminally investigate or prosecute any alcohol or drug abuse patient.[facility] event this information is protected by the Federal Confidentiality of Alcohol and Drug Abuse Patient Records regulations: The Federal rules restrict any use of the information to criminally investigate or prosecute any alcohol or drug abuse patient.[facility] the event this information is protected by the Federal Confidentiality of Alcohol and Drug Abuse Patient Records regulations: The Federal rules restrict any use of the information to criminally investigate or prosecute any alcohol or drug abuse patient.[facility] the event this information is protected by the Federal Confidentiality of Alcohol and Drug Abuse Patient Records regulations: The Federal rules restrict any use of the information to criminally investigate or prosecute any alcohol or drug abuse patient.[facility] the event this information is protected by the Federal Confidentiality of Alcohol and Drug Abuse Patient Records regulations: The Federal rules restrict any use of the information to criminally investigate or prosecute any alcohol or drug abuse patient.[facility] the event this information is protected by the Federal Confidentiality of Alcohol and Drug Abuse Patient Records regulations: The Federal rules restrict any use of the information to criminally investigate or prosecute any alcohol or drug abuse patient.[facility] the event this information is protected by the Federal Confidentiality of Alcohol and Drug Abuse Patient Records regulations: The Federal rules restrict any use of the information to criminally investigate or prosecute any alcohol or drug abuse patient.[facility] the event this information is protected by the Federal Confidentiality of Alcohol and Drug Abuse Patient Records regulations: The Federal rules restrict any use of the information to criminally investigate or prosecute any alcohol or drug abuse patient.[facility] the event this information is protected by the Federal Confidentiality of Alcohol and Drug Abuse Patient Records regulations: The Federal rules restrict any use of the information to criminally investigate or prosecute any alcohol or drug abuse patient.[facility] HospitalIn the event this information is protected by the Federal Confidentiality of Alcohol and Drug Abuse Patient Records regulations: The Federal rules restrict any use of the information to criminally investigate or prosecute any alcohol or drug abuse patient.[facility] HospitalIn the event this information is protected by the Federal Confidentiality of Alcohol and Drug Abuse Patient Records regulations: The Federal rules restrict any use of the information to criminally investigate or prosecute any alcohol or drug abuse patient.[facility] HospitalIn the event this information is protected by the Federal Confidentiality of Alcohol and Drug Abuse Patient Records regulations: The Federal rules restrict any use of the information to criminally investigate or prosecute any alcohol or drug abuse patient.[facility] HospitalIn the event this information is protected by the Federal Confidentiality of Alcohol and Drug Abuse Patient Records regulations: The Federal rules restrict any use of the information to criminally investigate or prosecute any alcohol or drug abuse patient.[facility] HospitalIn the event this information is protected by the Federal Confidentiality of Alcohol and Drug Abuse Patient Records regulations: The Federal rules restrict any use of the information to criminally investigate or prosecute any alcohol or drug abuse patient.[facility] HospitalIn the event this information is protected by the Federal Confidentiality of Alcohol and Drug Abuse Patient Records regulations: The Federal rules restrict any use of the information to criminally investigate or prosecute any alcohol or drug abuse patient.[facility] HospitalIn the event this information is protected by the Federal Confidentiality of Alcohol and Drug Abuse Patient Records regulations: The Federal rules restrict any use of the information to criminally investigate or prosecute any alcohol or drug abuse patient.[facility] HospitalIn the event this information is protected by the Federal Confidentiality of Alcohol and Drug Abuse Patient Records regulations: The Federal rules restrict any use of the information to criminally investigate or prosecute any alcohol or drug abuse patient.[facility] HospitalIn the event this information is protected by the Federal Confidentiality of Alcohol and Drug Abuse Patient Records regulations: The Federal rules restrict any use of the information to criminally investigate or prosecute any alcohol or drug abuse patient.[facility] HospitalIn the event this information is protected by the Federal Confidentiality of Alcohol and Drug Abuse Patient Records regulations: The Federal rules restrict any use of the information to criminally investigate or prosecute any alcohol or drug abuse patient.[facility] HospitalIn the event this information is protected by the Federal Confidentiality of Alcohol and Drug Abuse Patient Records regulations: The Federal rules restrict any use of the information to criminally investigate or prosecute any alcohol or drug abuse patient.[facility] HospitalIn the event this information is protected by the Federal Confidentiality of Alcohol and Drug Abuse Patient Records regulations: The Federal rules restrict any use of the information to criminally investigate or prosecute any alcohol or drug abuse patient.[facility] HospitalIn the event this information is protected by the Federal Confidentiality of Alcohol and Drug Abuse Patient Records regulations: The Federal rules restrict any use of the information to criminally investigate or prosecute any alcohol or drug abuse patient.[facility] HospitalIn the event this information is protected by the Federal Confidentiality of Alcohol and Drug Abuse Patient Records regulations: The Federal rules restrict any use of the information to criminally investigate or prosecute any alcohol or drug abuse patient.[facility] HospitalIn the event this information is protected by the Federal Confidentiality of Alcohol and Drug Abuse Patient Records regulations: The Federal rules restrict any use of the information to criminally investigate or prosecute any alcohol or drug abuse patient.[facility] HospitalIn the event this information is protected by the Federal Confidentiality of Alcohol and Drug Abuse Patient Records regulations: The Federal rules restrict any use of the information to criminally investigate or prosecute any alcohol or drug abuse patient.[facility] HospitalIn the event this information is protected by the Federal Confidentiality of Alcohol and Drug Abuse Patient Records regulations: The Federal rules restrict any use of the information to criminally investigate or prosecute any alcohol or drug abuse patient.[facility] HospitalIn the event this information is protected by the Federal Confidentiality of Alcohol and Drug Abuse Patient Records regulations: The Federal rules restrict any use of the information to criminally investigate or prosecute any alcohol or drug abuse patient.[facility] HospitalIn the event this information is protected by the Federal Confidentiality of Alcohol and Drug Abuse Patient Records regulations: The Federal rules restrict any use of the information to criminally investigate or prosecute any alcohol or drug abuse patient.[facility] HospitalIn the event this information is protected by the Federal Confidentiality of Alcohol and Drug Abuse Patient Records regulations: The Federal rules restrict any use of the information to criminally investigate or prosecute any alcohol or drug abuse patient.[facility] HospitalIn the event this information is protected by the Federal Confidentiality of Alcohol and Drug Abuse Patient Records regulations: The Federal rules restrict any use of the information to criminally investigate or prosecute any alcohol or drug abuse patient.[facility] HospitalIn the event this information is protected by the Federal Confidentiality of Alcohol and Drug Abuse Patient Records regulations: The Federal rules restrict any use of the information to criminally investigate or prosecute any alcohol or drug abuse patient.[facility] HospitalIn the event this information is protected by the Federal Confidentiality of Alcohol and Drug Abuse Patient Records regulations: The Federal rules restrict any use of the information to criminally investigate or prosecute any alcohol or drug abuse patient.[facility] HospitalIn the event this information is protected by the Federal Confidentiality of Alcohol and Drug Abuse Patient Records regulations: The Federal rules restrict any use of the information to criminally investigate or prosecute any alcohol or drug abuse patient.[facility] HospitalIn the event this information is protected by the Federal Confidentiality of Alcohol and Drug Abuse Patient Records regulations: The Federal rules restrict any use of the information to criminally investigate or prosecute any alcohol or drug abuse patient.[facility] HospitalIn the event this information is protected [...] or prosecute any alcohol or drug abuse patient.[facility] HospitalIn the event this information is protected by the Federal Confidentiality of Alcohol and Drug Abuse Patient Records regulations: The Federal rules restrict any use of the information to criminally investigate or prosecute any alcohol or drug abuse patient.[facility] HospitalIn the event this information is protected by the Federal Confidentiality of Alcohol and Drug Abuse Patient Records regulations: The Federal rules restrict any use of the information to criminally investigate or prosecute any alcohol or drug abuse patient.[facility] HospitalIn the event this information is protected by the Federal Confidentiality of Alcohol and Drug Abuse Patient Records regulations: The Federal rules restrict any use of the information to criminally investigate or prosecute any alcohol or drug abuse patient.[facility] HospitalIn the event this information is protected by the Federal Confidentiality of Alcohol and Drug Abuse Patient Records regulations: The Federal rules restrict any use of the information to criminally investigate or prosecute any alcohol or drug abuse patient.[facility] HospitalIn the event this information is protected by the Federal Confidentiality of Alcohol and Drug Abuse Patient Records regulations: The Federal rules restrict any use of the information to criminally investigate or prosecute any alcohol or drug abuse patient.[facility] HospitalIn the event this information is protected by the Federal Confidentiality of Alcohol and Drug Abuse Patient Records regulations: The Federal rules restrict any use of the information to criminally investigate or prosecute any alcohol or drug abuse patient.[facility] HospitalIn the event this information is protected by the Federal Confidentiality of Alcohol and Drug Abuse Patient Records regulations: The Federal rules restrict any use of the information to criminally investigate or prosecute any alcohol or drug abuse patient.[facility] HospitalIn the event this information is protected by the Federal Confidentiality of Alcohol and Drug Abuse Patient Records regulations: The Federal rules restrict any use of the information to criminally investigate or prosecute any alcohol or drug abuse patient.[facility] HospitalIn the event this information is protected by the Federal Confidentiality of Alcohol and Drug Abuse Patient Records regulations: The Federal rules restrict any use of the information to criminally investigate or prosecute any alcohol or drug abuse patient.[facility] HospitalIn the event this information is protected by the Federal Confidentiality of Alcohol and Drug Abuse Patient Records regulations: The Federal rules restrict any use of the information to criminally investigate or prosecute any alcohol or drug abuse patient.[facility] HospitalIn the event this information is protected by the Federal Confidentiality of Alcohol and Drug Abuse Patient Records regulations: The Federal rules restrict any use of the information to criminally investigate or prosecute any alcohol or drug abuse patient.[facility] HospitalIn the event this information is protected by the Federal Confidentiality of Alcohol and Drug Abuse Patient Records regulations: The Federal rules restrict any use of the information to criminally investigate or prosecute any alcohol or drug abuse patient.[facility] HospitalIn the event this information is protected by the Federal Confidentiality of Alcohol and Drug Abuse Patient Records regulations: The Federal rules restrict any use of the information to criminally investigate or prosecute any alcohol or drug abuse patient.[facility] HospitalIn the event this information is protected by the Federal Confidentiality of Alcohol and Drug Abuse Patient Records regulations: The Federal rules restrict any use of the information to criminally investigate or prosecute any alcohol or drug abuse patient.[facility] HospitalIn the event this information is protected by the Federal Confidentiality of Alcohol and Drug Abuse Patient Records regulations: The Federal rules restrict any use of the information to criminally investigate or prosecute any alcohol or drug abuse patient.[facility] HospitalIn the event this information is protected by the Federal Confidentiality of Alcohol and Drug Abuse Patient Records regulations: The Federal rules restrict any use of the information to criminally investigate or prosecute any alcohol or drug abuse patient.[facility] HospitalIn the event this information is protected by the Federal Confidentiality of Alcohol and Drug Abuse Patient Records regulations: The Federal rules restrict any use of the information to criminally investigate or prosecute any alcohol or drug abuse patient.[facility] HospitalIn the event this information is protected by the Federal Confidentiality of Alcohol and Drug Abuse Patient Records regulations: The Federal rules restrict any use of the information to criminally investigate or prosecute any alcohol or drug abuse patient.[facility] HospitalIn the event this information is protected by the Federal Confidentiality of Alcohol and Drug Abuse Patient Records regulations: The Federal rules restrict any use of the information to criminally investigate or prosecute any alcohol or drug abuse patient.[facility] HospitalIn the event this information is protected by the Federal Confidentiality of Alcohol and Drug Abuse Patient Records regulations: The Federal rules restrict any use of the information to criminally investigate or prosecute any alcohol or drug abuse patient.[facility] HospitalIn the event this information is protected by the Federal Confidentiality of Alcohol and Drug Abuse Patient Records regulations: The Federal rules restrict any use of the information to criminally investigate or prosecute any alcohol or drug abuse patient.[facility] HospitalIn the event this information is protected by the Federal Confidentiality of Alcohol and Drug Abuse Patient Records regulations: The Federal rules restrict any use of the information to criminally investigate or prosecute any alcohol or drug abuse patient.[facility] HospitalIn the event this information is protected by the Federal Confidentiality of Alcohol and Drug Abuse Patient Records regulations: The Federal rules restrict any use of the information to criminally investigate or prosecute any alcohol or drug abuse patient.[facility] HospitalIn the event this information is protected by the Federal Confidentiality of Alcohol and Drug Abuse Patient Records regulations: The Federal rules restrict any use of the information to criminally investigate or prosecute any alcohol or drug abuse patient.[facility] HospitalIn the event this information is protected by the Federal Confidentiality of Alcohol and Drug Abuse Patient Records regulations: The Federal rules restrict any use of the information to criminally investigate or prosecute any alcohol or drug abuse patient.[facility] HospitalIn the event this information is protected by the Federal Confidentiality of Alcohol and Drug Abuse Patient Records regulations: The Federal rules restrict any use of the information to criminally investigate or prosecute any alcohol or drug abuse patient.[facility] HospitalIn the event this information is protected by the Federal Confidentiality of Alcohol and Drug Abuse Patient Records regulations: The Federal rules restrict any use of the information to criminally investigate or prosecute any alcohol or drug abuse patient.[facility] HospitalIn the event this information is protected by the Federal Confidentiality of Alcohol and Drug Abuse Patient Records regulations: The Federal rules restrict any use of the information to criminally investigate or prosecute any alcohol or drug abuse patient.[facility] HospitalIn the event this information is protected by the Federal Confidentiality of Alcohol and Drug Abuse Patient Records regulations: The Federal rules restrict any use of the information to criminally investigate or prosecute any alcohol or drug abuse patient.[facility] HospitalIn the event this information is protected by the Federal Confidentiality of Alcohol and Drug Abuse Patient Records regulations: The Federal rules restrict any use of the information to criminally investigate or prosecute any alcohol or drug abuse patient.[facility] HospitalIn the event this information is protected by the Federal Confidentiality of Alcohol and Drug Abuse Patient Records regulations: The Federal rules restrict any use of the information to criminally investigate or prosecute any alcohol or drug abuse patient.[facility] HospitalIn the event this information is protected by the Federal Confidentiality of Alcohol and Drug Abuse Patient Records regulations: The Federal rules restrict any use of the information to criminally investigate or prosecute any alcohol or drug abuse patient.[facility] HospitalIn the event this information is protected by the Federal Confidentiality of Alcohol and Drug Abuse Patient Records regulations: The Federal rules restrict any use of the information to criminally investigate or prosecute any alcohol or drug abuse patient.[facility] HospitalIn the event this information is protected by the Federal Confidentiality of Alcohol and Drug Abuse Patient Records regulations: The Federal rules restrict any use of the information to criminally investigate or prosecute any alcohol or drug abuse patient.[facility] HospitalIn the event this information is protected by the Federal Confidentiality of Alcohol and Drug Abuse Patient Records regulations: The Federal rules restrict any use of the information to criminally investigate or prosecute any alcohol or drug abuse patient.[facility] HospitalIn the event this information is protected by the Federal Confidentiality of Alcohol and Drug Abuse Patient Records regulations: The Federal rules restrict any use of the information to criminally investigate or prosecute any alcohol or drug abuse patient.[facility] HospitalIn the event this information is protected by the Federal Confidentiality of Alcohol and Drug Abuse Patient Records regulations: The Federal rules restrict any use of the information to criminally investigate or prosecute any alcohol or drug abuse patient.[facility] HospitalIn the event this information is protected by the Federal Confidentiality of Alcohol and Drug Abuse Patient Records regulations: The Federal rules restrict any use of the information to criminally investigate or prosecute any alcohol or drug abuse patient.[facility] HospitalIn the event this information is protected by the Federal Confidentiality of Alcohol and Drug Abuse Patient Records regulations: The Federal rules restrict any use of the information to criminally investigate or prosecute any alcohol or drug abuse patient.[facility] HospitalIn the event this information is protected by the Federal Confidentiality of Alcohol and Drug Abuse Patient Records regulations: The Federal rules restrict any use of the information to criminally investigate or prosecute any alcohol or drug abuse patient.[facility] HospitalIn the event this information is protected by the Federal Confidentiality of Alcohol and Drug Abuse Patient Records regulations: The Federal rules restrict any use of the information to criminally investigate or prosecute any alcohol or drug abuse patient.[facility] HospitalIn the event this information is protected by the Federal Confidentiality of Alcohol and Drug Abuse Patient Records regulations: The Federal rules restrict any use of the information to criminally investigate or prosecute any alcohol or drug abuse patient.[facility] Reason for Visit (unrecogniz ed section [...] REAL TIME WITH IMAGE LIMITED Brenda Shankar, DISABILITY LIAISON OFFICER.RESEARCH LABORATORY MANAGER [address] [place] [address] [facility] [address] [place] [address] Referral ID Status Reason Start Date Expiration Date V isits Requested Visits Authorized [id number] Closed Auto-Generate d Referral 09/05/2021 10/05/2022 1 1 Reason Comments Radiology Mammogram Specialty Diagnoses / Procedures Referred By Contac t Referred To Contact [facility] Diagnoses Abnormal mammogram Procedures [facility] DIAGNOSTIC LT DIAGNOSTIC MAMMOGRAPHY COMPUTER-AIDED DETCJ UNI Vonnie, Brenda, DISABILITY LIAISON OFFICER.RESEARCH LABORATORY MANAGER [address] [place] [address] [facility] [address] [place] [address] Referral ID Status Reason Start Date Expiration Date V isits Requested Visits Authorized [id number] Closed Auto-Generate d Referral 09/05/2021 10/05/2022 1 [...] painXray Specialty Diagnoses / Procedures Referred By Divya reis Referred To Contact Orthopedics Diagnoses Hip pain, acute, left Procedures CONSULT TO ORTHOPAEDICS OFFICE/OUTPATIENT NEW HIGH MDM 60-74 MINUTES Jeana Sommers APRN.RESEARCH LABORATORY MANAGER [address] [place] [address] Referral ID Status Reason Start Date Expiration Date Visits Requested Visits Authorized [id number] Pending Review PCP Requested Referral 10/11/2022 10/11/2023 1 1 Reason Onset Date Comments Refill Request 12/20/[address] Specialty Diagnoses / Procedures Referred By Divya reis Referred To Contact CT IMAGING Diagnoses Lung nodules Procedures CT CHEST WO IVCON DIAGNOSTIC COMPUTED TOMOGRAPHY THORAX W/O Florence Duncan MD [address] [place] [address] [facility] [place] [address] Referral ID Status Reason Start Date Expiration Date V isits Requested Visits Authorized [id number] Closed Auto-Generate d Referral 11/29/2021 12/29/2022 1 1 Reason Comments Imm/Inj COVID vaccine and di scuss RSV Reason Comments Refill Request Reason Comments Cough Cough and congestion x 4 weeks Reason Onset Date Comments Appointment 03/23/2023 Care Teams (unrecognized sec tion and content) Education Program Coordinator Relationship Specialty Start Date End Date Claudine Durán MD [address] [place], [place] [id number] PCP - General Internal Medicine 03/02/16 Will Hurley [address] [facility] [place] [address] Referring Rheumatology 04/09/18 Gold Colón, eligibility and occupancy interviewerStructural Rigger Internal Medicine 07/22/20 Education Program Coordinator Relationship Specialty Start Date End Date Claudine Durán MD [address] [place], [place] [id number] PCP - General Internal Medicine 03/02/16 Will Hurley [address] [place] [address] Referring Rheumatology 04/09/18 Gold Colón, eligibility and occupancy interviewerStructural Rigger Internal Medicine 07/22/20 Education Program Coordinator Relationship Specialty Start Date End Date Claudine Durán MD [address] [place] [address] PCP - General Internal Medicine 03/02/16 Will Hurley [address] [facility] [place] [address] Referring Rheumatology 04/09/18 Gold Colón, eligibility and occupancy interviewerStructural Rigger Internal Medicine 07/22/20 Education Program Coordinator Relationship Specialty Start Date End Date Claudine Durán MD [address] [place] [address] PCP - General Internal Medicine 03/02/16 Will Hurley [address] [facility] [place] [address] Referring Rheumatology 04/09/18 Gold Colón, eligibility and occupancy interviewerStructural Rigger Internal Medicine 07/22/20 Education Program Coordinator Relationship Specialty Start Date End Date Claudine Durán MD [address] [place], [place] [id number] PCP - General Internal Medicine 03/02/16 Will Hurley [address] [facility] [place] [address] Referring Rheumatology 04/09/18 Gold Colón, eligibility and occupancy interviewerStructural Rigger Internal Medicine 07/22/20 Education Program Coordinator Relationship Specialty Start Date End Date Claudine Durán MD [address] [place] [address] PCP - General Internal Medicine 03/02/16 Will Hurley [address] [facility] [place] [address] Referring Rheumatology 04/09/18 Gold Colón, eligibility and occupancy interviewerStructural Rigger Internal Medicine 07/22/20 Education Program Coordinator Relationship Specialty Start Date End Date Claudine Durán MD [address] [place] [address] PCP - General Internal Medicine 03/02/16 Will Hurley [address] [facility] [place] [address] Referring Rheumatology 04/09/18 Gold Colón, eligibility and occupancy interviewerStructural Rigger Internal Medicine 07/22/20 Education Program Coordinator Relationship Specialty Start Date End Date Claudine Durán MD [address] [place] [address] PCP - General Internal Medicine 03/02/16 Will Hurley [address] [facility] [place] [address] Referring Rheumatology 04/09/18 Gold Colón, eligibility and occupancy interviewerStructural Rigger Internal Medicine 07/22/20 Education Program Coordinator Relationship Specialty Start Date End Date Claudine Durán MD [address] [place] [address] PCP - General Internal Medicine 03/02/16 Will Hurley [address] [facility] [place] [address] Referring Rheumatology 04/09/18 Gold Colón, eligibility and occupancy interviewerStructural Rigger Internal Medicine 07/22/20 Education Program Coordinator Relationship Specialty Start Date End Date Claudine Durán MD [address] [place] [address] PCP - General Internal Medicine 03/02/16 Will Hurley [address] [facility] [place] [address] Referring Rheumatology 04/09/18 Gold Colón, eligibility and occupancy interviewerStructural Rigger Internal Medicine 07/22/20 Education Program Coordinator Relationship Specialty Start Date End Date Claudine Durán MD [address] [place] [address] PCP - General Internal Medicine 03/02/16 Will Hurley [address] [facility] [place] [address] Referring Rheumatology 04/09/18 Gold Colón, eligibility and occupancy interviewerStructural Rigger Internal Medicine 07/22/20 Education Program Coordinator Relationship Specialty Start Date End Date Claudine Durán MD [address] [place] [address] PCP - General Internal Medicine 03/02/16 Will Hurley [address] [facility] [place] [address] Referring Rheumatology 04/09/18 Gold Colón, eligibility and occupancy interviewerStructural Rigger Internal Medicine 07/22/20 Education Program Coordinator Relationship Specialty Start Date End Date Claudine Durán MD [address] [place] [address] PCP - General Internal Medicine 03/02/16 Will Hurley [address] [facility] [address] Referring Rheumatology 04/09/18 Gold Colón, eligibility and occupancy interviewerStructural Rigger Internal Medicine 07/22/20 Education Program Coordinator Relationship Specialty Start Date End Date Claudine Durán MD [address] [facility], [place] [address] PCP - General Internal Medicine 03/02/16 Will Hurley [address] [facility] [place] [address] Referring Rheumatology 04/09/18 Gold Colón eligibility and occupancy interviewerStructural Rigger Internal Medicine 07/22/20 Education Program Coordinator Relationship Specialty Start Date End Date Claudine Durán MD [address] [place] [address] PCP - General Internal Medicine 03/02/16 Will Hurley [address] [facility] [place] [address] Referring Rheumatology 04/09/18 Gold Colón eligibility and occupancy interviewerStructural Rigger Internal Medicine 07/22/20 Education Program Coordinator Relationship Specialty Start Date End Date Claudine Durán MD [address] [facility], [place] [address] PCP - General Internal Medicine 03/02/16 Will Hurley [address] [facility] [place] [address] Referring Rheumatology 04/09/18 Gold Colón eligibility and occupancy interviewerStructural Rigger Internal Medicine 07/22/20 Education Program Coordinator Relationship Specialty Start Date End Date Claudine Durán MD [address] [place] [address] PCP - General Internal Medicine 03/02/16 Will Hurley [address] [facility] [place] [address] Referring Rheumatology 04/09/18 Gold Colón, eligibility and occupancy interviewerStructural Rigger Internal Medicine 07/22/20 Education Program Coordinator Relationship Specialty Start Date End Date Claudine Durán MD [address] [place] [address] PCP - General Internal Medicine 03/02/16 Will granger [address] [facility] [place] [address] Referring Rheumatology 04/09/18 Lulú Ramos, RN [address] [place], [place] [id number] Structural Rigger Family Medicine 07/22/20 Education Program Coordinator Relationship Specialty Start Date End Date Claudine Durán MD [address] [place] [address] PCP - General Internal Medicine 03/02/16 Will Hurley [address] [facility] [place] [address] Referring Rheumatology 04/09/18 Gold Colón, eligibility and occupancy interviewerStructural Rigger Internal Medicine 07/22/20 12/20/21 Lulú Ramos, PAULA [address] [place], [place] [id number] Structural Rigger Family Medicine 07/22/20 Education Program Coordinator Relationship Specialty Start Date End Date Caludine Durán MD [address] [facility], [place] [address] PCP - General Internal Medicine 03/02/16 Will Hurley [address] [facility] [place] [address] Referring Rheumatology 04/09/18 Lulú Ramos, RN [address] [place] [address] Structural Rigger Family Medicine 07/22/20 Education Program Coordinator Relationship Specialty Start Date End Date Claudine Durán MD [address] [place] [address] PCP - General Internal Medicine 03/02/16 Will Hurley [facility] [address] [facility] [place] [address] Referring Rheumatology 04/09/18 Lulú Ramos, PAULA [address] [place] [address] Structural Rigger Family Medicine 07/22/20 Education Program Coordinator Relationship Specialty Start Date End Date Claudine Durán MD [address] [place] [address] PCP - General Internal Medicine 03/02/16 Will Hurley [facility] [place] [place] [address] Referring Rheumatology 04/09/18 Lulú Ramos, PAULA [address] [place] [address] Structural Rigger Family Medicine 07/22/20 Education Program Coordinator Relationship Specialty Start Date End Date Claudine Durán MD [address] [place] [address] PCP - General Internal Medicine 03/02/16 Will Hurley [facility] [place] [address] Referring Rheumatology 04/09/18 Lulú Ramos, RN [address] [facility] [place] [address] Structural Rigger Family Medicine 07/22/20 Education Program Coordinator Relationship Specialty Start Date End Date Claudine Durán MD [address] [place] [address] PCP - General Internal Medicine 03/02/16 Will Hurley [address] [facility] [place] [place] [address] Referring Rheumatology 04/09/18 Lulú Ramos, RN [address] [facility] [place] [address] Structural Rigger Family Medicine 12/20/21 Education Program Coordinator Relationship Specialty Start Date End Date Clauidne Durán MD [address] [place] [address] PCP - General Internal Medicine 03/02/16 Will Hurley [address] [facility] [place] [address] Referring Rheumatology 04/09/18 Lulú Ramos, PAULA [address] [facility] [place] [address] Structural Rigger Family Medicine 12/20/21 Education Program Coordinator Relationship Specialty Start Date End Date Claudine Durán MD [address] [place] [address] PCP - General Internal Medicine 03/02/16 Will Hurley [address] [facility] [place] [place] [address] Referring Rheumatology 04/09/18 Lulú Ramos, RN [address] [facility] [place] [address] Structural Rigger Family Medicine 12/20/21 Education Program Coordinator Relationship Specialty Start Date End Date Claudine Durán MD [address] [place] [address] PCP - General Internal Medicine 03/02/16 Will Hurley [facility] [place] [place] [address] Referring Rheumatology 04/09/18 Lulú Ramos, RN [address] [place] [address] Structural Rigger Family Medicine 12/20/21 Education Program Coordinator Relationship Specialty Start Date End Date Claudine Durán MD [address] [place] [address] PCP - General Internal Medicine 03/02/16 Will Hurley [address] [place] [address], [place] [address] Referring Rheumatology 04/09/18 Lulú Ramos, PAULA [address] [place] [address] Structural Rigger Family Medicine 12/20/21 Education Program Coordinator Relationship Specialty Start Date End Date Claudine Durán MD [address] [place] [address] PCP - General Internal Medicine 03/02/16 Will Hurley [address] [place], [place] [address] [place] [address] Referring Rheumatology 04/09/18 Lulú Ramos, PAULA [address] [place] [address] Structural Rigger Family Medicine 12/20/21 Education Program Coordinator Relationship Specialty Start Date End Date Claudine Durán MD [address] [place] [address] PCP - General Internal Medicine 03/02/16 Will Hurley[address] [facility] [place] [address] Referring Rheumatology 04/09/18 Lulú Ramos, PAULA [address] [facility] [place] [address] Structural Rigger Family Medicine 12/20/21 Education Program Coordinator Relationship Specialty Start Date End Date Claudine Durán MD [address] [place] [address] PCP - General Internal Medicine 03/02/16 Will Hurley [facility] [address] [facility] [place] [address] Referring Rheumatology 04/09/18 Lulú Ramos, PAULA [address] [place] [address] Structural Rigger Family Medicine 12/20/21 Education Program Coordinator Relationship Specialty Start Date End Date Claudine Durán MD [address] [place] [address] PCP - General Internal Medicine 03/02/16 Will Hurley [address] [place] [address], [place] [address] Referring Rheumatology 04/09/18 Lulú Ramos RN [address] [facility] [place] [address] Structural Rigger Family Medicine 12/20/21 Education Program Coordinator Relationship Specialty Start Date End Date Claudine Durán MD [address] [place] [address] PCP - General Internal Medicine 03/02/16 Will Hurley [facility] [address] [facility] [place] [address] Referring Rheumatology 04/09/18 Lulú Ramos, PAULA [address] [place] [address] Structural Rigger Family Medicine 12/20/21 Education Program Coordinator Relationship Specialty Start Date End Date Claudine Durán MD [address] [place] [address] PCP - General Internal Medicine 03/02/16 Will Hurley [address] [facility] [place] [address] Referring Rheumatology 04/09/18 Ilda Miller, RN [address] [facility] [place] [address] Structural Rigger 07/27/22 Education Program Coordinator Relationship Specialty Start Date End Date Claudine Durán MD [address] [place] [address] PCP - General Internal Medicine 03/02/16 Will Hurley [address] [facility] [place] [address] Referring Rheumatology 04/09/18 Ilda Miller RN [address] [facility] [place] [address] Structural Rigger 07/27/22 Education Program Coordinator Relationship Specialty Start Date End Date Claudine Durán MD [address] [place] [address] PCP - General Internal Medicine 03/02/16 Will Hurley [address] [facility] [place] [address] Referring Rheumatology 04/09/18 Ilda Miller RN [address] [facility] [place] [address] Structural Rigger 07/27/22 Education Program Coordinator Relationship Specialty Start Date End Date Claudine Durán MD [address] [facility] [place] [address] PCP - General Internal Medicine 03/02/16 Will Hurley [address] [facility] [place] [address] Referring Rheumatology 04/09/18 Ilda Miller, PAULA [address] [place] [address] Structural Rigger 07/27/22 Education Program Coordinator Relationship Specialty Start Date End Date Claudine Durán MD [address] [place], [place] [address] PCP - General Internal Medicine 03/02/16 Will Hurley [address] [facility] [place], [place] [address] Referring Rheumatology 04/09/18 Ilda Miller RN [address] [place] [address] Structural Rigger 07/27/22 Education Program Coordinator Relationship Specialty Start Date End Date Claudine Durán MD [address] [place], [place] [address]6521 PCP - General Internal Medicine 03/02/16 Will Hurley [address] [facility] [place] [address] Referring Rheumatology 04/09/18 Ilda Miller, PAULA [address] [place] [address] Structural Rigger 07/27/22 Education Program Coordinator Relationship Specialty Start Date End Date Claudine Durán MD [address] [place], [place] 5039[address] PCP - General Internal Medicine 03/02/16 Wlil Hurley [address] [facility] [place] [address] Referring Rheumatology 04/09/18 Ilda Miller, RN [address] [place] [address] Structural Rigger 07/27/22 Education Program Coordinator Relationship Specialty Start Date End Date Claudine Durán MD [address] [place] [address] PCP - General Internal Medicine 03/02/16 Will Hurley [address] [facility] [place] [address] Referring Rheumatology 04/09/18 Ilda Miller RN [address] [place] [address] Structural Rigger 07/27/22 Education Program Coordinator Relationship Specialty Start Date End Date Claudine Durán MD [address] [place] [address] PCP - General Internal Medicine 03/02/16 Will Hurley [address] [facility] [place] [address] Referring Rheumatology 04/09/18 Ilda Miller, PAULA [address] [place] [address] Structural Rigger 07/27/22 Education Program Coordinator Relationship Specialty Start Date End Date Claudine Durán MD [address] [place], [place] [address]16[address] [phone] PCP - General Internal Medicine 03/02/16 Will Hurley [address] [facility] [place] [address] Referring Rheumatology 04/09/18 Ilda Miller, RN [address] [facility] [place] [address] Structural Rigger 07/27/22 Education Program Coordinator Relationship Specialty Start Date End Date Claudine Durán MD [address] [facility], [place] [address] PCP - General Internal Medicine 03/02/16 Will Hurley [address] [facility] [place] [address] Referring Rheumatology 04/09/18 Ilda Miller, PAULA [address] [place] [address] Structural Rigger 07/27/22 Education Program Coordinator Relationship Specialty Start Date End Date Claudine Durán MD [address] [place] [address] PCP - General Internal Medicine 03/02/16 Will Hurley [address] [facility] [place] [address] Referring Rheumatology 04/09/18 Ilda Miller, PAULA [address] [place] [address] Structural Rigger 07/27/22 Education Program Coordinator Relationship Specialty Start Date End Date Claudine Durán MD [address] [place] [address] PCP - General Internal Medicine 03/02/16 Will Hurley [address] [facility], [place] [address] Referring Rheumatology 04/09/18 Lulú Ramos, RN [address] [place] [address] Structural Rigger Family Medicine 12/20/2107/26 Education Program Coordinator Relationship Specialty Start Date End Date Claudine Durán MD [address] [place], [place] 312[address] PCP - General Internal Medicine 03/02/16 Will Hurley [address] [facility] [address] Referring Rheumatology 04/09/18 Ilda Miller RN [address] [place] [address] Structural Rigger 07/27/22 Education Program Coordinator Relationship Specialty Start Date End Date Claudine Durán MD [address] [place], [place] 4[address] PCP - General Internal Medicine 03/02/16 Will Hurley [address] [facility] [address] Referring Rheumatology 04/09/18 Ilda Miller RN [address] [place] [address] Structural Rigger 07/27/22 Education Program Coordinator Relationship Specialty Start Date End Date Claudine Durán MD [address] [place] [address] PCP - General Internal Medicine 03/02/16 Will Hurley [address] [place] [address] Referring Rheumatology 04/09/18 Ilda Miller, PAULA [address] [place] [address] Structural Rigger 07/27/22 Lynne Maynard, eligibility and occupancy interviewer Final Operations Technician 03/26/23 FOR RECORDS PERTAINING TO PATIENTS WHO ARE [...] BE BASED ON THE PRIMARY CLINICAL RECORDS. [facility] [employer] [facility]. provides no warranty or guarantee of the accuracy or completeness of information in this document.
[2023-03-31] MEDS: 0.9% Normal Saline (500mL Bag) 500 ML 999 ML IV (18:16)
--- NOTE | 2023-03-31 18:32 | RAD_ITS ---
INDICATION: cough EXAMINATION/TECHNIQUE: X-RAY - XR Chest 1 View COMPARISON: 03/28/2023. FINDINGS: The lungs are unchanged. The cardiomediastinal silhouette is stable. No pleural effusion or pneumothorax. The osseous structures are unchanged. RAD/Chest 1 View (Portable) IMPRESSION: No change from prior study. Electronically Signed: Franko Galarza MD at 19:29 EST ,
[2023-03-31 18:42] LABS: Absolute Lymphocyte Count 0.59 X10^3/uL (0.83-4.51); Absolute Neutrophil Count 17.6 X10^3/uL (2.0-7.7); Basophil# 0.01 X10^3/uL; Basophil% 0.1 % (0-1); Eosinophil# 0.01 X10^3/uL; Eosinophils% 0.1 % (0-5); Hematocrit 24.9 % (37-47); Hemoglobin 8.3 g/dL (12.0-15.0); Lymphocyte # 0.59 X10^3/ul (0.83-4.51); Mean Corp Hgb Conc 33.3 g/dL (32-36); Mean Corpuscular Hgb 28.9 pg (27.0-32.0); Mean Corpuscular Volume 86.8 fL (81-99); Mean Platelet Vol. 10.4 fl (6.2-12.0); Monocyte# 0.97 X10^3/uL; NRBC Flagged by Analyzer 0 % (0-5); Neutrophil # 17.61 X10^3/uL (2.7-7.7); Neutrophil % 90.8 % (47-70); POSITIVE COUNT YES; POSITIVE DIFFERENTIAL YES; POSITIVE MORPHOLOGY YES; Platelet Count 95 K/mm3 (150-450); RBC Distribution Width CV 24.1 % (11.6-14.6); RBC Distribution Width SD 75.1 fl (35.1-43.9); Red Blood Count 2.87 M/mm3 (4.2-5.4); White Blood Count 19.4 K/mm3 (4.4-11.0)
[2023-03-31 18:43] LABS: Differential Indicated SCAN CRITERIA MET
[2023-03-31 18:44] LABS: International Normalized Ratio 1.3
[2023-03-31 18:50] LABS: Anion Gap 6 (5-15); BUN 31 mg/dL (7-18); BUN/Creat Ratio 41.2 RATIO (10-20); Calcium,Total 7.8 mg/dL (8.5-10.1); Chloride 99 mmol/L (98-107); Creatinine, Serum 0.75 mg/dL (0.55-1.02); EST Glomerular Filtration Rate 80 mL/min (>60); Est Glom Filt Rate - Afr Amer 96 mL/min (>60); Estimated Creatinine Clearance 50.26 ml/min; Glucose 108 mg/dL (74-106); Potassium 3.2 mmol/L (3.5-5.1); Sodium Level 134 mmol/L (136-145)
[2023-03-31 18:51] LABS: BNP,B-Type NATRIURETIC PEPTIDE 97.8 pg/mL (0-100)
[2023-03-31 18:54] LABS: Lactic Acid 1.4 mmol/L (0.4-1.9)
[2023-03-31 19:07] LABS: Anisocytosis 2+; Differential Comment SCANNED; Macrocytosis 1+; Microcytosis 1+; Platelet Estimate MOD DEC (ADEQ)
[2023-03-31 19:36] LABS: CPK Total, Creatine Kinase 125 U/L (26-192)
[2023-03-31 20:00] VITALS: BP 108/50; PULSE 77; RESP 17; O2SAT 98
--- NOTE | 2023-03-31 20:12 | PCM.HP.STD ---
HPI - General General Date of Admission: 03/31/23 Date of Service: 03/31/23 Chief Complaint: BLE edema and weeping HPI Narrative ALENA BUSTAMANTE, is a 77-year-old female history of COPD, Severe . GERD. DVT and PE on Coumadin, histoplasmosis of the lung, RA who presented to [facility] ED 03/31/2023 with bilateral lower extremity edema. She was seen here 03/28/2023 with lower extremity edema. She was initially seen here 03/26/2023 for shortness of breath and inability to care for herself at home after a recent hospital stay at [facility] from which she was discharged on Cipro and Flagyl as well as itraconazole and she was treated also with remdesivir and dexamethasone for COVID-19. Patient was evaluated in the ED and due to her failure to thrive and inability to care for self she was admitted. Patient did well and was feeling better the following day and was discharged home 03/27. She Re-presented to the ED 03/28 with bilateral lower extremity edema, she was not hypoxic and her labs were essentially unchanged from prior so she was placed on 20 mg of Lasix daily and strongly advised to follow-up with her primary care physician. She started the Lasix yesterday but re-presented today for lower extremity edema. Reportedly patient was at home and was nervous about getting up from her commode so sat there for a long time, when she did finally get up and was ambulating across the room her cane slipped and she fell on her bottom, she scooted to where her friend could see her and waited for her friend to come because she did not think she could get up off the floor. Patient brought to ED. In the ED with blood cell count slightly higher than previous at 19.4 and potassium slightly low at 3.2 but lab workup fairly unremarkable otherwise and patient vitally stable in ED. She was noted on physical exam to have right lower extremity cellulitis and tib-fib x-ray obtained which was unremarkable, she was given some IV fluids and a dose of clindamycin and hospitalist contacted for admission due to her difficulty caring for herself, lower extremity edema, and lower extremity cellulitis. Patient evaluated at bedside with friend present. Patient reports that since she was most recently in the ED she has continued to have lower extremity swelling and took 1 dose of Lasix yesterday and 1 today, main complaint is the weeping of her legs because she has had to constantly change her pants, did report a little bit of confusion 2 days ago but has not had that since, denies fevers or chills, reports some chronic shortness of breath without change, denies changes in bowel or bladder, patient only complained of the bilateral lower extremity edema but when looking at legs and asking about her cellulitis she has difficulty with timeline, but thinks it has been slowly progressive over the past couple of days, has some pain in the right ankle as well but she is not sure if she hurt it when she fell or not. Also has some petechiae of the bilateral lower extremities that have developed sometime over the past couple of days. Additionally discussed with patient if she still taking Cipro and Flagyl and itraconazole and she didn't remember if she's been taking cipro and flagyl and itraconazole she hasn't been taking because she can't get the liquid form. She is unsure if she's taking her coumadin [facility] Medical History (Updated 03/31/23 @ 20:[address] Laine Veras MD) Colitis COPD (chronic obstructive pulmonary disease) DVT (deep venous thrombosis) Former smoker Histoplasmosis Pulmonary embolism Rheumatoid arthritis Home Medications adalimumab 40 mg/0.4 mL subcutaneous pen kit (Humira(CF) Pen) 40 mg subcut Q14D 03/19/23 [History Last Taken Unknown] albuterol sulfate 90 mcg/actuation aerosol inhaler 2 puff inhalation Q4H PRN shortness of breath or wheezing 03/19/23 [History Last Taken Unknown] budesonide-formoterol HFA 160 mcg-4.5 mcg/actuation aerosol inhaler (Symbicort) 2 puff inhalation Q12H 03/19/23 [History Last Taken Unknown] fluticasone propionate 50 mcg/actuation nasal spray,suspension 1 spray intranasal DAILY allergies 03/19/23 [History Last Taken Unknown] gabapentin 300 mg capsule 300 mg PO Q12H pain 03/19/23 [History Last Taken Unknown] irbesartan 150 mg-hydrochlorothiazide 12.5 mg tablet 1 tab PO DAILY 03/19/23 [History Last Taken Unknown] multivitamin (Daily Multi-Vitamin tablet) 1 tab PO DAILY supplement 03/19/23 [History Last Taken Unknown] naproxen 500 mg tablet 500 mg PO Q12H 03/19/23 [History Last Taken Unknown] pantoprazole 40 mg tablet,delayed release 40 mg PO DAILY 03/19/23 [History Last Taken Unknown] potassium chloride 20 mEq tablet,extended release(part/cryst) (Klor-Con M) 20 meq PO BID 03/19/23 [History Last Taken Unknown] tiotropium bromide 2.5 mcg/actuation mist for inhalation (Spiriva Respimat) 2 puff inhalation Q24H 03/19/23 [History Last Taken Unknown] vitamins A,C,Z-dmvh-leylfu 2,148 mcg-113 mg-45 mg-17.4 mg tablet (PreserVision AREDS) 2 tab PO BID 03/19/23 [History Last Taken Unknown] warfarin 5 mg tablet 5 mg PO .COMPLEX 03/19/23 [History Last Taken Unknown] cholecalciferol (vitamin D3) 25 mcg (1,000 unit) capsule 25 mcg PO DAILY 03/26/23 [History Last Taken Unknown] ciprofloxacin HCl 500 mg tablet 500 mg PO Q12H 03/26/23 [History Last Taken Unknown] dexamethasone 6 mg tablet 6 mg PO DAILY 03/26/23 [History Last Taken Unknown] itraconazole 10 mg/mL oral solution 100 mg PO Q8H unknown 03/26/23 [History Last Taken Unknown] loperamide 2 mg capsule (Anti-Diarrheal (loperamide)) 4 mg PO TID diarrhea 03/26/23 [History Last Taken Unknown] metronidazole 500 mg tablet 500 mg PO TID 03/26/23 [History Last Taken Unknown] vitamin A-vitamin C-vit E-min tablet (Ocutabs tablet) 2 tab PO DAILY 03/26/23 [History Last Taken Unknown] furosemide 20 mg tablet (Lasix) 20 mg PO DAILY 14 days #14 tabs 03/28/23 [Rx Last Taken Unknown] Allergy/AdvReac Type Severity Reaction Status Date / Time Penicillins Allergy Severe Anaphylaxis Verified 03/28/23 16:32 Surgical History History of embolic filter insertion Hx of foot surgery Social History Smoking Status: Former smoker ROS ROS Narrative General: Denies fever/chills HENT: Denies headache, denies stuffy nose, denies sore throat EYES: Denies changes in vision Resp: Denies cough, chronic shortness of breath Cardiac: Denies chest pain GI: Denies abdominal pain, denies changes in bowel, denies nausea/vomiting : Denies changes in urination Extremity: Increased swelling in bilateral lower extremities MSK: Some general weakness Neuro: Denies any numbness/tingling Heme: Denies any bleeding or bruising Skin: Some right lower extremity erythema and some petechiae in both lower extremities Psychiatric: No complaints voiced Vital Signs Vital Signs Vital Signs: 03/31/23 16:48 03/31/23 17:01 Temperature 98.3 F Temperature Source Oral Pulse Rate 86 Respiratory Rate 17 Respiratory Pattern Normal Blood Pressure 105/46 L Blood Pressure Mean 65 Pulse Ox 100 Weight Weight: 60.1 kg Body Mass Index (BMI) 23.4 Physical Exam Narrative General: Alert, no apparent distress HEENT: Atraumatic, normocephalic Eyes: Anicteric, normal conjunctiva, extraocular movements grossly intact Neck: Supple Respiratory: No rhonchi's or wheezes, normal respiratory effort Cardiovascular: Regular rate and rhythm GI: Soft, nontender, nondistended Extremities: 2+ lower extremity edema bilaterally Musculoskeletal: Moving all extremities, some pain with moving right ankle moreso than left Neuro: No overt focal neurological deficits Skin: Petechiae in bilateral lower extremities but R ankle and soto w/ patchy erythema, both lower extremities with weeping and superficial abrasions, no purulence appreciated Psych: Cooperative Results Lab / Micro Data 03/31/23 18:12 03/31/23 18:12 Labs: Laboratory Results - last 24 hr 03/31/23 18:12: WBC 19.4 H, RBC 2.87 L, Hgb 8.3 L, Hct 24.9 L, MCV 86.8, MCH 28.9, MCHC 33.3, RDW Std Deviation 75.1 H, RDW Coeff of Catarino 24.1 H, Plt Count 95 L, MPV 10.4, Immature Gran % (Auto) 1.000 H, Neut % (Auto) 90.8 H, Lymph % (Auto) 3.0 L, [place] % (Auto) 5.0, Eos % (Auto) 0.1, Baso % (Auto) 0.1, Absolute Neuts (auto) 17.6 H, Absolute Lymphs (auto) 0.59 L, Nucleated RBC % 0, Differential Comment SCANNED, Platelet Estimate MOD DEC, Anisocytosis 2+, Microcytosis 1+, Macrocytosis 1+, PT 16.0 H, INR 1.3, Sodium 134 L, Potassium 3.2 L, Chloride 99, Carbon Dioxide 29.0, Anion Gap 6, BUN 31 H, Creatinine 0.75, Estim Creat Clear Calc 50.26, Est GFR (MDRD) Af Amer 96, Est GFR (MDRD) Non-Af 80, BUN/Creatinine Ratio 41.2 H, Glucose 108 H, Lactic Acid 1.4, Calcium 7.8 L, Total Creatine Kinase 125, B-Natriuretic Peptide 97.8 Imaging Radiology Impression Tibia/Fibula X-Ray 03/31/23 17:49 IMPRESSION: No acute radiographic abnormalities. Electronically Signed: Franko Galarza MD at 19:30 EST , Chest X-Ray 03/31/23 18:32 IMPRESSION: No change from prior study. Electronically Signed: Franko Galarza MD at 19:29 EST , Assessment & Plan Assessment/Plan (1) Cellulitis: (2) Leg edema: (3) Generalized weakness: (4) History of DVT (deep vein thrombosis): (5) Rheumatoid arthritis: PLAN: Plan #RLE cellulitis -Sounds to have been slowly progressive over past several days, likely due to infection introduced from one of her superficial abrasions -WBC slightly higher than previous at 19.4 but CK and lactic normal, no SHIELA or other endorgan damage -Pt clinically appears stable -Anaphylactic reaction to penicillin, will give Levaquin -No purulence so we will hold off on vancomycin unless patient not improving and can consider broadening with MRSA coverage -Will gently hydrate with IV fluids -Wound nurse consult -Elevate extremities -Will also perform right lower extremity duplex as patient subtherapeutic on her Coumadin though this does appear to be more cellulitic in nature -Will check ESR and CRP #Fall and difficulty caring for self -Patient reports falling on her bottom, she is unsure if she hurt her right ankle but does have some right ankle pain, able to move ankle that is some tenderness more laterally than medially -She is unsure timeline of how long her ankle has been painful but up until her fall today she had been walking with a cane so may be secondary to fall/injury -Will obtain x-ray -Pain control -PT/OT -Can consider podiatry consult pending results and progress #Increasing bilateral lower extremity edema -Elevate lower extremities -Can consider blanca wraps if tolerated -Echocardiogram -Daily weights, I's and O's -Giving gentle IVF w/ infection -Ultimately will need to resume Lasix once pt improving #Recent concern for bowel perf treated conservatively -T[facility] -s/p cipro and flagyl, no present abd complaints # Disseminated histoplasmosis -Continue itraconazole twice daily -Patient to follow-up with a Dr. Burger in 3 months # Recent COVID-19 -Tested positive here end of February -No resp complaints #Hx COPD -Continue inhalers #Hx and mod pericardial effusion -Seen at [facility] and pt advised to f/u outpt -Will need to f/u after d/c for further monitoring and management #Hx PE -Resumed on coumadin -Daily PT/INR -INR subtherapeutic in ED and pt unsure if she's taking it # Chronic anemia -8.3, similar to previous, appears to be at baseline -Continue to monitor #Thrombocytopenia -As intermittently had somewhat low values -Could be due to underlying infection -CBC in the a.m., continue to trend #Hypokalemia -Possibly secondary to Lasix -Will replace #RA -Previously on humira, methotrexate, leucovorin -Will hold at this time given active treatment for her disseminated histoplasmosis and bowel perforation #GERD -Continue PPI #DVT ppx: On Coumadin Laine Veras MD #DVT ppx: Lovenox subcu while awaiting therapeutic Coumadin Laine Veras MD Time spent in the patient's overall evaluation,decision-making process, review of diagnostic data, adjustment of management, discussion with other providers, nursing nursing and ancillary staff involved in patient's care documentation, 78 Minutes Charges/Coding Visit Charges Inpatient E&M: 72421 Init Hosp L3
[2023-03-31] MEDS: Clindamycin 600 MG/50 ML BAG 100 MG IV (20:13)
--- OUTSIDE RECORDS SUMMARY | 2023-03-31 20:18 | XMS RPT_ITS | CCD ---
Author Name Unknown Address [address] [place] [address] Organization [facility] Care Team Providers Care Log Cut Off Sawyer Name Role Phone Mykel Santamaria Unavailable Unavailable Mykel Santamaria Unavailable Unavailable UNKNOWN, REFERR Unavailable Unavailable Will Hurley Attending Unavailable PROVIDER, UNKNOWN Referring Unavailable No, PCP Primary Care Unavailable Claudine Durán MD Primary Care Provider Will Hurley Unavailable Gold Colón RN Unavailable UnavailClaudine Cannon MD Primary Care Provider Will Hurley Unavailable Gold Colón RN Unavailable UnavailWill Vaz Unavailable Lulú Ramos RN Unavailable [phone] Gold Colón RN Unavailable UnavailClaudine Cannon MD Primary Care Provider Will Hurley Unavailable Rachel RN, Lulú Unavailable Rachel RN, Lulú Unavailable Paul RN, Ilda Unavailable Paul RN, Ilda [...] Care Unavailable FLORENCE TERRY Referring Unavailable JOHANNA BENITSE Attending Unavailable TALAMPAS, CLAUDINE D Primary Care [...] [PENICILLINS] Propensity to adverse reactions (disorder) 5 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] Onset: 04-01-2009 12-10-2014 Episodic Other aftercare (1 source) [employer] (current) use of 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; Translations: [Chronic anticoagulation] [...] 98.6 [degF] Adri Zaragoza APRN.CNP Work Phone: [facility] 02-07-2023 10:36-0500 Body weight 59.69 kg Adri Zaragoza APRN.CNP Work Phone: [facility] 02-07-2023 10:36-0500 Diastolic blood pressure 82 mm[Hg] Adri Zaragoza APRN.CNP Work Phone: [facility] 02-07-2023 10:36-0500 Heart rate 87 /min Adri Zaragoza APRN.CNP Work Phone: [facility] 02-07-2023 10:36-0500 Respiratory rate 18 /min Adri Callow FRONT END DEVELOPER JAVASCRIPT HTML CSS.WINDER HELPER Work Phone: [facility] 02-07-2023 10:36-0500 SaO2% (BldA) [Mass fraction] 98 % Adri Callow FRONT END DEVELOPER JAVASCRIPT HTML CSS.WINDER HELPER Work Phone: [facility] 02-07-2023 10:36-0500 Systolic blood pressure 134 mm[Hg] Dari Callow FRONT END DEVELOPER JAVASCRIPT HTML CSS.WINDER HELPER Work Phone: [facility] 01-04-2023 10:33-0500 Body weight 58.06 kg Jimbo Carias FRONT END DEVELOPER JAVASCRIPT HTML CSS.AUTOMATION TECH Work Phone: [facility] 01-04-2023 10:33-0500 Diastolic blood pressure 75 mm[Hg] Jimbo Carias FRONT END DEVELOPER JAVASCRIPT HTML CSS.AUTOMATION TECH Work Phone: [facility] 01-04-2023 10:33-0500 Heart rate 77 /min Jimbo Carias FRONT END DEVELOPER JAVASCRIPT HTML CSS.AUTOMATION TECH Work Phone: [facility] 01-04-2023 10:33-0500 Respiratory rate 16 /min Jimbo Carias FRONT END DEVELOPER JAVASCRIPT HTML CSS.AUTOMATION TECH Work Phone: [facility] 01-04-2023 10:33-0500 Systolic blood pressure 128 mm[Hg] Jimbo Carias FRONT END DEVELOPER JAVASCRIPT HTML CSS.AUTOMATION TECH Work Phone: [facility] 10-27-2022 09:03-0400 Body weight 59.42 kg Jimbo Carias FRONT END DEVELOPER JAVASCRIPT HTML CSS.AUTOMATION TECH Work Phone: [facility] 10-27-2022 09:03-0400 Diastolic blood pressure 66 mm[Hg] Jimbo Carias FRONT END DEVELOPER JAVASCRIPT HTML CSS.AUTOMATION TECH Work Phone: [facility] 10-27-2022 09:03-0400 Heart rate 76 /min Jimbo Carias FRONT END DEVELOPER JAVASCRIPT HTML CSS.AUTOMATION TECH Work Phone: [facility] 10-27-2022 09:03-0400 Respiratory rate 16 /min Jimbo Carias FRONT END DEVELOPER JAVASCRIPT HTML CSS.AUTOMATION TECH Work Phone: [facility] 10-27-2022 09:03-0400 Systolic blood pressure 119 mm[Hg] Jimbo Carias FRONT END DEVELOPER JAVASCRIPT HTML CSS.AUTOMATION TECH Work Phone: [facility] 08-29-2022 09:26-0400 Body height 162.6 cm Rachelleiván Lai FRONT END DEVELOPER JAVASCRIPT HTML CSS.WINDER HELPER Work Phone: [facility] 08-29-2022 09:26-0400 Body weight 58.51 kg Rachelle Eris FRONT END DEVELOPER JAVASCRIPT HTML CSS.WINDER HELPER Work Phone: [facility] 08-29-2022 09:26-0400 Diastolic blood pressure 78 mm[Hg] Rachelleiván Lai FRONT END DEVELOPER JAVASCRIPT HTML CSS.WINDER HELPER Work Phone: [facility] 08-29-2022 09:26-0400 Heart rate 75 /min Rachelle Lai FRONT END DEVELOPER JAVASCRIPT HTML CSS.WINDER HELPER Work Phone: [facility] 08-29-2022 09:26-0400 SaO2% (BldA) [Mass fraction] 98 % Rachelleiván Lai FRONT END DEVELOPER JAVASCRIPT HTML CSS.WINDER HELPER Work Phone: [facility] 08-29-2022 09:26-0400 Systolic blood pressure 142 mm[Hg] Rachelle Eris FRONT END DEVELOPER JAVASCRIPT HTML CSS.WINDER HELPER Work Phone: [facility] 07-20-2022 09:28-0400 Body weight 58.06 kg Florence Terry MD Work Phone: [facility] 07-20-2022 09:28-0400 Diastolic blood pressure 72 mm[Hg] Florence Terry MD Work Phone: [facility] 07-20-2022 09:28-0400 Heart rate 50 /min Florence Terry MD Work Phone: [facility] 07-20-2022 09:28-0400 Respiratory rate 17 /min Florence Terry MD Work Phone: [facility] 07-20-2022 09:28-0400 SaO2% (BldA) [Mass fraction] 100 % Florence Terry MD Work Phone: [facility] 07-20-2022 09:28-0400 Systolic blood pressure 122 mm[Hg] Florence Terry MD Work Phone: [facility] 03-13-2022 10:13-0500 Body temperature 96.69 [degF] Claudine Durán MD Work Phone: [facility] 03-13-2022 10:13-0500 Body weight 59.56 kg Claudine Durán MD Work Phone: [facility] 03-13-2022 10:13-0500 Diastolic blood pressure 68 mm[Hg] Claudine Durán MD Work Phone: [facility] 03-13-2022 10:13-0500 Heart rate 75 /min Claudine Durán MD Work Phone: [facility] 03-13-2022 10:13-0500 Respiratory rate 18 /min Claudine Durán MD Work Phone: [facility] 03-13-2022 10:13-0500 SaO2% (BldA) [Mass fraction] 100 % Claudine Durán MD Work Phone: [facility] 03-13-2022 10:13-0500 Systolic blood pressure 112 mm[Hg] Claudine Durán MD Work Phone: [facility] 11-29-2021 10:07-0400 Body weight 58.51 kg Florence Terry MD Work Phone: [facility] 11-29-2021 10:07-0400 Diastolic blood pressure 76 mm[Hg] Florence Terry MD Work Phone: [facility] 11-29-2021 10:07-0400 Heart rate 92 /min Florence Terry MD Work Phone: [facility] 11-29-2021 10:07-0400 Respiratory rate 18 /min Florence Terry MD Work Phone: [facility] 11-29-2021 10:07-0400 SaO2% (BldA) [Mass fraction] 97 % Florence Terry MD Work Phone: [facility] 11-29-2021 10:07-0400 Systolic blood pressure 122 mm[Hg] Florence Terry MD Work Phone: [facility] 11-10-2021 09:220400 Body weight 60.33 kg Jimbo Carias FRONT END DEVELOPER JAVASCRIPT HTML CSS.AUTOMATION TECH Work Phone: [facility] 11-10-2021 09:22-0400 Diastolic blood pressure 80 mm[Hg] Jimbo Carias FRONT END DEVELOPER JAVASCRIPT HTML CSS.AUTOMATION TECH Work Phone: [facility] 11-10-2021 09:22-0400 Heart rate 76 /min Jimbo Carias FRONT END DEVELOPER JAVASCRIPT HTML CSS.AUTOMATION TECH Work Phone: [facility] 11-10-2021 09:22-0400 Respiratory rate 16 /min Jimbo Carias FRONT END DEVELOPER JAVASCRIPT HTML CSS.AUTOMATION TECH Work Phone: [facility] 11-10-2021 09:22-0400 Systolic blood pressure 152 mm[Hg] Jimbo Carias FRONT END DEVELOPER JAVASCRIPT HTML CSS.AUTOMATION TECH Work Phone: [facility] 09-20-2021 13:45-0400 Body weight 58.51 kg Jimbo Carias FRONT END DEVELOPER JAVASCRIPT HTML CSS.AUTOMATION TECH Work Phone: [facility] 09-20-2021 13:45-0400 Diastolic blood pressure 64 mm[Hg] Jimbo Carias FRONT END DEVELOPER JAVASCRIPT HTML CSS.AUTOMATION TECH Work Phone: [facility] 09-20-2021 13:45-0400 Heart rate 85 /min Jimbo Carias FRONT END DEVELOPER JAVASCRIPT HTML CSS.AUTOMATION TECH Work Phone: [facility] 09-20-2021 13:45-0400 SaO2% (BldA) [Mass fraction] 96 % Jimbo Carias FRONT END DEVELOPER JAVASCRIPT HTML CSS.AUTOMATION TECH Work Phone: [facility] 09-20-2021 13:45-0400 Systolic blood pressure 128 mm[Hg] Jimbo Carias FRONT END DEVELOPER JAVASCRIPT HTML CSS.AUTOMATION TECH Work Phone: [facility] 08-12-2021 11:01-0400 Body height 162.6 cm William Ambriz DO Work Phone: [facility] 08-12-2021 11:01-0400 Body weight 59.42 kg William Ambriz DO Work Phone: [facility] 08-12-2021 11:01-0400 Diastolic blood pressure 74 mm[Hg] William Ambriz DO Work Phone: [facility] 08-12-2021 11:01-0400 Heart rate 72 /min William Ambriz DO Work Phone: [facility] 08-12-2021 11:01-0400 SaO2% (BldA) [Mass fraction] 99 % William Ambriz DO Work Phone: [facility] 08-12-2021 11:01-0400 Systolic blood pressure 130 mm[Hg] William Ambriz DO Work Phone: [facility] 07-11-2021 08:10-0400 Body weight 58.06 kg Claudine Durán MD Work Phone: [facility] 07-11-2021 08:10-0400 Diastolic blood pressure 74 mm[Hg] Claudine Durán MD Work Phone: [facility] 07-11-2021 08:10-0400 Heart rate 76 /min Claudine Durná MD Work Phone: [facility] 07-11-2021 08:10-0400 Systolic blood pressure 122 mm[Hg] Claudine Durán MD Work Phone: [facility] 2021 14:57-0400 Body height 162.6 cm Julio Andujar MD Work Phone: [facility] 2021 14:57-0400 Body weight 58.33 kg Julio Andujar MD Work Phone: [facility] 2021 14:57-0400 Diastolic blood pressure 67 mm[Hg] Julio Andujar MD Work Phone: [facility] 2021 14:57-0400 Heart rate 98 /min Julio Andujar MD Work Phone: [facility] 2021 14:57-0400 Respiratory rate 14 /min Julio Andujar MD Work Phone: [facility] 2021 14:57-0400 SaO2% (BldA) [Mass fraction] 99 % Julio Andujar MD Work Phone: [facility] 2021 14:57-0400 Systolic blood pressure 144 mm[Hg] Julio Andujar MD Work Phone: [facility] 03-14-2021 08:08-0500 Body height 162.6 cm Claudine Durán MD Work Phone: [facility] 03-14-2021 08:08-0500 Body temperature 97.5 [degF] Claudine Durán MD Work Phone: [facility] 03-14-2021 08:08-0500 Body weight 58.06 kg Claudine Durán MD Work Phone: [facility] 03-14-2021 08:08-0500 Diastolic blood pressure 62 mm[Hg] Claudine Durán MD Work Phone: [facility] 03-14-2021 08:08-0500 Heart rate 87 /min Claudine Durán MD Work Phone: [facility] 03-14-2021 08:08-0500 Respiratory rate 14 /min Claudine Durán MD Work Phone: [facility] 03-14-2021 08:08-0500 SaO2% (BldA) [Mass fraction] 99 % Claudine Durán MD Work Phone: [facility] 03-14-2021 08:08-0500 Systolic blood pressure 118 mm[Hg] Claudine Durán MD Work Phone: [facility] Encounters Encounter Date Encounter Type Care Provider Facility Start: 03-27-2023 E-mail encounter fro m caregiver William Ambriz DO Work Phone: [facility] Start: 03-27-2023 Patient encounter procedure Gr clint Ambriz DO Work Phone: Cardiology Procedures Date Procedure Procedure Detail Performing Clinician Start: 02-07-2023 COVID & INFLUENZA A/ B & RSV NAAT, ROUTINE Adri Zaragoza FRONT END DEVELOPER JAVASCRIPT HTML CSS.WINDER HELPER Work Phone: Start: 01-04-2023 PFIZER-BIONTECH COVI D-19 VACCINE ( SEASON) AGE 12+ YR [facility] FRONT END DEVELOPER JAVASCRIPT HTML CSS.AUTOMATION TECH Work Phone: Start: 01-04-2023 Prothrombin time [facility] FRONT END DEVELOPER JAVASCRIPT HTML CSS.AUTOMATION TECH Work Phone: Start: 11-17-2022 Screening digital br east tomosynthesis bi [facility] FRONT END DEVELOPER JAVASCRIPT HTML CSS.AUTOMATION TECH Work Phone: Start: 10-27-2022 INFLUENZA VACCINE, P RSV FREE, AGE 65+ YR, HIGH DOSE, QUADRIVALENT (FLUZONE HIGH-DOSE) [facility] FRONT END DEVELOPER JAVASCRIPT HTML CSS.AUTOMATION TECH Work Phone: Start: 08-29-2022 Ecg routine ecg w/le ast 12 lds i&r only [facility] Provider Start: 07-20-2022 Ct thorax w/o contra st material Florence Terry MD Work Phone: Start: 11-10-2021 INFLUENZA SEASONAL QUADRIVALENT HIGH DOSE AGE 65+ [facility] FRONT END DEVELOPER JAVASCRIPT HTML CSS.AUTOMATION TECH Work Phone: Start: 11-10-2021 PFIZER-BIONTECH COVI D-19 BIVALENT BOOSTER VACCINE, AGE 12+ YR [facility] FRONT END DEVELOPER JAVASCRIPT HTML CSS.AUTOMATION TECH Work Phone: Start: 11-10-2021 Adult depression scr eening assessment [facility] FRONT END DEVELOPER JAVASCRIPT HTML CSS.AUTOMATION TECH Work Phone: Start: 10-18-2021 Radex foot complete minimum 3 views Yonas Louise Work Phone: Start: 10-12-2021 Diagnostic mammograp hy computer-aided detcj uni Brenda Anayacalf FRONT END DEVELOPER JAVASCRIPT HTML CSS.WINDER HELPER Work Phone: Start: 09-05-2021 End: 09-05-2021 Screening [facility] FR[facility] END DEVELOPER JAVASCRIPT HTML CSS.WINDER HELPER Work Phone: Start: 07-11-2021 Zhui Xin-ttwick COVI D-19 VACCINE, AGE 12+ YR (ARIAS TOP) Claudine Durán MD Work Phone: Start: 07-07-2021 Lipid 1996 panel - S luisito or Plasma Ashly Shay RN Start: 07-13-2020 Adult depression scr eening assessment Nara Dopart Start: 06-01-2020 Mammography Nara Medina opart Start: 03-24-2019 Colonoscopy Nara Medina opart Plan of Treatment Date Care Activity Detail Author Start: 11-05-2029 Urine microalbumin profile [facility] Start: 03-24-2029 Colonoscopy COLONOSCOPY [facility] Start: 03-24-2029 COLORECTAL CANCER SCREENING COLORECTAL CANCER SCREENING [facility] Start: 03-24-2029 Screening for malignant neoplasm of colon [facility] Start: 07-07-2026 Lipid 1996 panel - Serum or Plasma Lipid Screening [facility] Start: 07-07-2026 Lipid panel Lipid Screening [facility] Start: 07-07-2026 LIPID SCREEN LIPID SCREEN [facility] Start: 03-25-2026 Diabetes Screening Diabetes Screening [facility] Start: 03-22-2026 Diabetes Screening Diabetes Screening [facility] Start: 03-03-2024 BP Controlled (<130/80) BP Controlled (<130/80) [facility] Start: 01-05-2024 BP Controlled (<130/80) BP Controlled (<130/80) [facility] Start: 10-28-2023 BP CONTROLLED (<130/80) BP CONTROLLED (<130/80) [facility] Start: 07-21-2023 BP CONTROLLED (<130/80) BP CONTROLLED (<130/80) [facility] Start: 07-08-2023 DIABETES SCREEN DIABETES SCREEN [facility] Start: 07-08-2023 Diabetes Screening Diabetes Screening [facility] Start: 03-13-2023 ANNUAL PCP TEAM CHRONIC DISEASE VISIT ANNUAL PCP TEAM CHRONIC DISEASE VISIT [facility] Start: 03-13-2023 BP CONTROLLED (<130/80) BP CONTROLLED (<130/80) [facility] Start: 03-01-2023 Covid-19 Vaccine () Covid-19 Vaccine () [facility] Start: 02-19-2023 Advance Directive Discussion Advance Directive Discussion [facility] Start: 02-19-2023 Depression Assessment Depression Assessment [facility] Start: 01-23-2023 End: 08-23-2023 Ct thorax w/o contrast material CT CHEST WO IVCON Radiology Routine Lung nodules Bronchiectasis without complication (HCC) Expected: 01/23/2023, Expires: 08/23/2023 [facility] Work Phone: Immunizations Immunization Date Immunization Notes Care Provider Galindo leyva 01-04-2023 COVID-19 vaccine, ag e 12+ yr, season (PFIZER-BIONTECH) Jmibo Carias FRONT END DEVELOPER JAVASCRIPT HTML CSS.[facility] Work Phone: [facility] Work Phone: 10-27-2022 influenza (HD-IIV4) vaccine, age 65+ yr, high dose, quadrivalent, PF (FLUZONE HIGH-DOSE) Jimbo Carias FRONT END DEVELOPER JAVASCRIPT HTML CSS.AUTOMATION TECH Work Phone: [facility] Work Phone: 11-10-2021 COVID-19 booster vaccine, age 12+ yr, bivalent (PFIZER-BIONTECH) Jimbo Carias FRONT END DEVELOPER JAVASCRIPT HTML CSS.[facility] Work Phone: [facility] Work Phone: 11-10-2021 influenza, high-dose , quadrivalent vaccine (FLUZONE HIGH DOSE QUADRIVALENT) Jimbo Carias FRONT END DEVELOPER JAVASCRIPT HTML CSS.AUTOMATION TECH Work Phone: [facility] Work Phone: 07-11-2021 COVID-19 vaccine, ag e 12+ yr (PFIZER-BIONTECH - ARIAS TOP) Anticoag Wstr Work Phone: [facility] 11-21-2020 COVID-19 original vaccine, age 12+ yr, monovalent (PFIZER-BIONTECH - PURPLE TOP) Claudine Durán MD Work Phone: [facility] 11-09-2020 COVID-19 vaccine, ag e 12+ yr (PFIZER-BIONTECH - PURPLE TOP) Nara Talavera [facility] 11-09-2020 influenza, high-dose , quadrivalent vaccine (FLUZONE HIGH DOSE QUADRIVALENT) [facility] Work Phone: 05-13-2020 COVID-19 vaccine, ag e 12+ yr (PFIZER-BIONTECH - PURPLE TOP) [facility] Work Phone: 04-22-2020 COVID-19 vaccine, ag e 12+ yr (PFIZER-BIONTECH - PURPLE TOP) [facility] Work Phone: 11-06-2019 influenza, high-dose , quadrivalent vaccine (FLUZONE HIGH DOSE QUADRIVALENT) [facility] Work Phone: 11-06-2019 tetanus and diphther ia toxoids, adsorbed, preservative free, for adult use (5 Lf of tetanus toxoid and 2 Lf of diphtheria toxoid) [facility] Work Phone: 11-28-2018 zoster vaccine recombinant [facility] 10-26-2018 influenza, high dose seasonal, preservative-free [facility] 07-23-2018 zoster vaccine recombinant [facility] 11-27-2017 influenza, high dose seasonal, preservative-free [facility] 02-07-2017 pneumococcal polysaccharide vaccine, 23 valrandall Durán MD Work Phone: [facility] 01-31-2017 influenza, high dose seasonal, preservative-free [facility] 12-13-2016 pneumococcal polysaccharide vaccine, 23 ravi Durán MD Work Phone: [facility] 11-28-2016 pneumococcal polysaccharide vaccine, 23 ravi Durán MD Work Phone: [facility] 12-13-2015 influenza, high dose seasonal, preservative-free [facility] 11-10-2014 influenza, high dose seasonal, preservative-free [facility] 03-30-2014 pneumococcal conjuga te vaccine, 13 valent [facility] 12-08-2013 pneumococcal polysaccharide vaccine, 23 valrandall Durán MD Work Phone: [facility] 11-24-2013 influenza, seasonal, injectable [facility] 03-24-2013 pneumococcal polysaccharide vaccine, 23 valent [facility] 11-18-2012 influenza virus vacc ine, unspecified formulation [facility] Work Phone: 11-10-2011 influenza virus vacc ine, unspecified formulation [facility] 11-23-2010 influenza virus vacc ine, unspecified formulation [facility] 10-07-2009 tetanus toxoid, redu amarilis diphtheria toxoid, and acellular pertussis vaccine, adsorbed [facility] 10-29-2008 influenza virus vacc ine, unspecified formulation [facility] 09-22-1999 diphtheria and tetan us toxoids, adsorbed for pediatric use [facility] Work Phone: Payers Date Payer Category Payer Medicare AETNA MEDICARE A ETNA MEDICARE PPO [id number] 2021-Present [phone] [address] [place] [address] PPO [id number] 2021 Medicare AETNA MEDICARE A ETNA MEDICARE PPO [id number] 2021-Present [phone] [address] [place] [address] [facility] [id number] 2021 Medicare [id number] 1945 Unknown [id number] Medicare [id number] Private Health Insurance Social History Date Type Detail Facility Start: 08-28-2019 End: 11-10-2021 Tobacco smoking status NHIS Ex-smoker [facility] End: 02-19-1989 History of tobacco use Current smoker [facility] End: 02-19-1989 History of tobacco use Cigarette Smoker [facility] Start: 05-03-2021 End: 03-03-2023 Alcohol intake Current drinker of alcohol (finding) [facility] Start: 11-28-2019 End: 03-06-2022 History SDOH Alcohol Frequency 2 [facility] Start: 11-28-2019 End: 03-06-2022 History SDOH Alcohol Std Drinks 1 [facility] Start: 03-31-2019 End: 03-06-2022 History SDOH Social Connections [employer] 3 [facility] Start: 03-31-2019 End: 03-06-2022 History SDOH Social Connections Living 4 [facility] Start: 07-28-2019 End: 03-06-2022 History SDOH Physical Activity DPW 5 [facility] Start: 03-31-2019 Education 18 [facility] Start: 08-28-2019 End: 11-10-2021 Tobacco Comment Late heavy smoker. [facility] Start: 1945 Sex Assigned At Female [facility] Start: 05-02-2021 End: 12-31-2021 Exposure to SARS-CoV-2 (event) Not sure [facility] Work Phone: Start: 08-28-2019 End: 06-22-2022 Cigarettes smoked current (pack per day) - Reported 1 [facility] Start: 08-28-2019 End: 11-10-2021 Tobacco use and exposure Smokeless tobacco non-user [facility] Start: 03-06-2022 End: 06-22-2022 Social connection and isolation panel [facility] Do you belong to any clubs or organizations such as uatsdin groups, unions, fraternal or athletic groups, or school groups? Yes [facility] Are you now , , , , never or living with a partner? [facility] How often to you hav e a drink containing alcohol? Monthly or less [facility] How many standard dr inks containing alcohol do you have on a typical day? 1 or 2 [facility] How often do you hav e 6 or more drinks on 1 occasion? Never [facility] How hard is it for y ou to pay for the very basics like food, housing, medical care, and heating Not hard at all [facility] Do you feel stress - tense, restless, nervous, or anxious, or unable to sleep at night because your mind is troubled all the time - these days [OSQ] Not at all [facility] (I/We) worried wheth er (my/our) food would run out before (I/we) got money to buy more. Never true [facility] In the past 12 month s, was there a time when you were not able to pay the mortgage or rent on time? No [facility] Start: 03-04-2019 Gender identity Identifies as female gender (finding) [facility] Start: 03-04-2019 Sexual orientation Heterosexual (finding) [facility] Goals Date Patient Goal Desired Activity /State Personal health goal Clinical Notes 03-08-2018 to 03-25-2023 Telephone Encounter - Rachelle Leonard APRN.WINDER HELPER - 03/23/2023 5:16 PM Adri Duran APRN.WINDER HELPER - 02/07/2023 10:52 AM Flex Brown RN - 02/02/2023 3:19 PM ESTPatient Instructions Note Date & Type Note Facility 03-25-2023 Note HNO ID: [id number] Author: ARMEN FERNANDEZ, PAULA Service: Nursing Author Type: Registered Nurse Type: Nursing Progress Note Filed: 03/25/2023 08:58 Note Text: Sepsis alert, sound paged, vitals stable, pt stable, waitng for call-back from sound. [facility] 03-24-2023 Note HNO ID: [id number] Author: SHARAN RIVAS MD Service: Hospital Medicine Author Type: Physician Type: Progress Notes Filed: 03/24/2023 13:51 Note Text: DEPARTMENT OF HOSPITAL MEDICINE PROGRESS NOTE Hospital Medicine/Primary Attending: Sharan Rivas MD NIGHT AND WEEKEND COVERAGE: Before 7 pm please page Team color pager After 7pm please page [phone] MEDICATIONS: Current Facility-Administered Medications Medication Dose Route [...] (SPORANOX) 200 mg ORAL BID phenol 1 Gobles (CHLORASEPTIC) 1 Gobles MUCOUS MEMBRANE (TOPICAL MOUTH AND THROAT) q [...] was found to be COVID-19 positive in [place]. Imaging showed intraperitoneal air and pneumatosis intestinalis and patient was transferred to [facility]. Pulmonology was consulted and patient was started on remdesivir and Decadron for COVID-19. Also started on itraconazole, Cipro and Flagyl. Surgery was involved with no surgical plans. # Pneumatosis intestinalis and pneumoper (more content not included)... [facility] 03-24-2023 Note HNO ID: [id number] Author: MAGAN COURTNEY DO Service: Pulmonary Disease [...] of disseminated histoplasmosis. She is followed in [place], [place]. She has a history of previous [...] She presented to the emergency room at [facility] after a vigorous coughing episode and coughing [...] (SPORANOX) 200 mg ORAL BID phenol 1 Gobles (CHLORASEPTIC) 1 Gobles MUCOUS MEMBRANE (TOPICAL MOUTH AND THROAT) q [...] months. Thank you documented in this encounter [facility] 03-23-2023 Note HNO ID: [id number] Author: TENZIN NELSON RN Service: Care Management Author Type: Registered Nurse Type: Care Mgt Progress Note Filed: 03/23/2023 14:44 Note Text: CARE MANAGEMENT PROGRESS NOTE SERVICE DATE: 03/23/2023 SERVICE TIME: 12:22 PM LOS: 4 days Post-Acute Discharge Planning Patient Goal(s): Be able to go home, General wellness [place] Explained: [place] Given: No Reason Not Given: [...] 23, 2023 TIME: 2:37 PM PAGER/CONTACT #: [phone] [facility] 03-23-2023 Note HNO ID: [id number] Author: MAGAN COURTNEY DO Service: Pulmonary Disease [...] of disseminated histoplasmosis. She is followed in [place], [place]. She has a history of previous [...] She presented to the emergency room at [facility] after a vigorous coughing episode and coughing [...] [facility] 03-23-2023 Note HNO ID: [id number] Author: SHARAN RVIAS MD Service: Hospital Medicine Author Type: Physician [...] (SPORANOX) 200 mg ORAL BID phenol 1 Gobles (CHLORASEPTIC) 1 Gobles MUCOUS MEMBRANE (TOPICAL MOUTH AND THROAT) q [...] [facility] 03-22-2023 Note HNO ID: [id number] Author: GENO BURGER MD Service: Infectious Disease [...] home -Patient can call my office at [phone] to get an appointment for about 3 [...] for recurrent lower extremity DVT, presented to [facility] 03/19/2023 for hemoptysis, going to the [facility] ED but then sent here due to [...] be COVID-positive. Interestingly a CAT scan at [facility] found pneumatosis intestinalis and intraperitoneal free air comp (more content not included)... [facility] 03-22-2023 Note HNO ID: [id number] Author: MAGAN COURTNEY DO Service: Pulmonary Disease [...] of disseminated histoplasmosis. She is followed in [place], [place]. She has a history of previous [...] She presented to the emergency room at [facility] after a vigorous coughing episode and coughing [...] Positive PCR for COVID-19 supposedly reported from [facility]. Chest and abdomen/pelvis reviewed CTA chest 03/19/2023 No pulmonary embolism Prominent reticular no (more content not included)... [facility] 03-22-2023 Note HNO ID: [id number] Author: YAN PEREZ DO Service: General Surgery [...] [facility] 03-22-2023 Note HNO ID: [id number] Author: JOSE LUIS CRISTOBAL DO Service: General Surgery Author Type: Resident Type: Plan of Care Filed: 03/22/2023 13:52 Note Text: CT Scan ordered and reviewed. Still without any abdominal pain, tolerating diet. Pneumatosis intestinalis improving Surgery will sign off. Please call with questions Emergency General Surgery Service Pager: For questions or concerns Mon-Fri 6a-5p please page [phone]. After 5pm and on Weekends and Holidays, please page [phone] if in ICU or [phone] if on RNF. [facility] 03-22-2023 Note HNO ID: [id number] Author: SHARAN RIVAS MD Service: Hospital Medicine Author Type: Physician Type: Progress Notes Filed: 03/23/2023 09:28 Note Text: DEPARTMENT OF HOSPITAL MEDICINE PROGRESS NOTE Hospital Medicine/Primary Attending: Sharan Rivas MD NIGHT AND WEEKEND COVERAGE: Before 7 pm please page Team color pager After 7pm please page [phone] MEDICATIONS: Current Facility-Administered Medications Medication Dose Route [...] (SPORANOX) 200 mg ORAL BID phenol 1 Gobles (CHLORASEPTIC) 1 Gobles MUCOUS MEMBRANE (TOPICAL MOUTH AND THROAT) q [...] [facility] 03-21-2023 Note HNO ID: [id number] Author: GENO BURGER MD Service: Infectious Disease [...] for recurrent lower extremity DVT, presented to [facility] 03/19/2023 for hemoptysis, going to the [facility] ED but then sent here due to [...] be COVID-positive. Interestingly a CAT scan at [facility] found pneumatosis intestinalis and intraperitoneal free air [...] -- 03/21/23 1000 remdesivir in NaCl 0.9% Vial-Mate/ADD-Franklin 100 mg 275 mL 100 mg, INTRAVENOUS, EVERY 24 HOURS See Amada for full Linked Orders Report. 03/23/23 0959 03/20/23 1300 itraconazole 200 mg oral liquid (SPORANOX) 200 mg, ORAL, 3 TIMES DAILY 03/23/23 1259 01/29/24 2000 cipro (more content not included)... [facility] 03-21-2023 Note HNO ID: [id number] Author: PAMELA HALL MD Service: General Surgery [...] 0659 03/21/23 07 - 03/22/23 0659 Shift 7422-9560 3226-2595 8991-9998 24 Hour Total 4787-0813 9350-8872 0625-7045 24 Hour Total INTAKE IV 1275 1275 [...] Dose Route Frequency remdesivir in NaCl 0.9% Vial-Mate/ADD-Franklin 100 mg 275 mL 100 mg INTRAVENOUS [...] (SPORANOX) 200 mg ORAL TID phenol 1 Gobles (CHLORASEPTIC) 1 Gobles MUCOUS MEMBRANE (TOPICAL MOUTH AND THROAT) q [...] arthritis (HCC) 03/07/2015 Overview Note: Dr. Hurley ([facility]) Assessment: 77 year old female with PMH significant for RA (Humira), HTN, h/o disseminated Histoplasmosis, bronchiectasis, VTE (on coumadin), pulmonary nodules, and presenting to the ED today after an episode of hemoptysis at home. CTAP had an incidental finding of a small amount of intraperitoneal air and pneumatosis in the colon. INR on arrival to [facility] was 9. She given Vitamin K and transferred here. Hospital Course/Operations/Procedures: * No surgery found * Plan: Pneumatosis intestinalis and intraperitoneal free air - labs and imaging reviewed - Small amount of air on (more content not included)... [facility] 03-21-2023 Note HNO ID: [id number] Author: MAGAN COURTNEY DO Service: Pulmonary Disease [...] of disseminated histoplasmosis. She is followed in [place], [place]. She has a history of previous [...] She presented to the emergency room at [facility] after a vigorous coughing episode and coughing [...] Positive PCR for COVID-19 supposedly reported from [facility]. Chest and abdomen/pelvis reviewed CTA chest [...] [facility] 03-20-2023 Note HNO ID: [id number] Author: SABRA RICHARDSON RN Service: Care Management Author Type: Registered Nurse Type: Care Mgt Initial Assessment Filed: 03/20/2023 16:23 Note Text: CARE MANAGEMENT: ASSESSMENT AND DISCHARGE PLAN SERVICE DATE: March 20, 2023 SERVICE TIME: 4:19 PM PCP: Claudine Durán MD Primary Contact: Extended Emergency Contact Information Primary Emergency Contact: Suzie Gerardo ([facility]) Address: [address] [address] [facility] Relation: Friend Secondary Emergency Contact: Padmini Chang Address: [address] [place] [id number] [place] [address] Mobile Relation: Friend Admission Status: Inpatient Insurance Provider: [employer] PPO Discharge Planning requested by: Per Department Practice Potential Transition Plans Home Advance Directives Current Advance Directive: None Photovoltaic Installation Technician Attempted to Assist with AD Completion: Yes [...] wellness, Less pain, Wean off of O2 [place] Explained: [place] of [place] Given: No Reason Not Given: [...] 20, 2023 TIME: 4:19 PM CONTACT #: [phone] [facility] 03-20-2023 Note HNO ID: [id number] Author: MAGAN COURTNEY DO Service: Pulmonary Disease [...] of disseminated histoplasmosis. She is followed in [place], [place]. She has a history of previous [...] She presented to the emergency room at [facility] after a vigorous coughing episode and coughing [...] Positive PCR for COVID-19 supposedly reported from [facility]. Chest and abdomen/pelvis reviewed CTA chest [...] [facility] 03-20-2023 Note HNO ID: [id number] Author: PAMELA HALL MD Service: General Surgery Author Type: Physician Type: Progress Notes Filed: 03/20/2023 14:33 Note Text: Emergency General Surgery Progress Note SERVICE DATE: March 20, 2023 Emergency General Surgery Service Pager: For questions or concerns Mon-Fri 6a-5p please page [phone]. After 5pm and on Weekends and Holidays, please page [phone] if in ICU or [phone] if on RNF. SUBJECTIVE: NAEON. AF and [...] 0659 03/20/23 07 - 03/21/23 0659 Shift 7647-3432 4870-5196 4187-2501 24 Hour Total 6452-1130 1817-7317 9024-9440 24 Hour Total INTAKE IV 300 100 [...] in the colon. INR on arrival to [facility] was 9. She given Vitamin K and [...] chemical anticoagulation - INR on arrival to [facility] was 9. She given Vitamin K prior to transfer - continue serial abdominal exams - notify general surgery of any acute changes in clinical status D/w Dr. Hall SIGNATURE: Christ Camarena MD PATIENT NAME: Haydee Bustamante DATE: March 20, 2023 TIME: 921 Pager: [phone] Emergency General Surgery Service Pager: For questions or concerns Mon-Fri 6a-5p please page [phone]. After 5pm and on Weekends and Holidays, please page [phone] if in ICU or [phone] if on RNF. Emergency General Surgery (EGS) Staff Addendum: See admit H/P for full attestation following today's patient care visit. I evaluated the patient and personally participated in the jim components. I agree with the resident's findi (more content not included)... [facility] 03-03-2023 Note HNO ID: [id number] Author: NYASIA WICK APRN.[facility] Service: ? Author Type: Nurse Practitioner [...] Anemia Bone marrow involvement with histoplasmosis Bronchiectasis ([facility]) COPD (chronic obstructive pulmonary disease) ([facility]) Disseminated histoplasmosis Colitis, immunosuppression, 01/2018. Diverticulosis of colon (without mention of hemorrhage) Diverticulosis DVT, recurrent, lower extremity, acute ([facility]) 12/10/2014 Esophageal reflux Hiatal hernia 02/25/2018 Hypertension Lung nodule Personal history of unspecified urinary disorder 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 rheumatoid factor ([facility]) 03/07/2015 Dr. Hurley ([facility]) Unspecified hemorrhoids without mention of complication Hemorrhoids [...] SPINE FUSN,POST INTERBODY 2011 Dr. Armando at [facility]. Diskectomy and laminectomy PAST SURGICAL [...] fluticasone (FLONASE) 50 mcg/actuation nasal sprayUse 1 Gobles in each nostril once daily.Disp: 3 EachRfl: [address] (PROTONIX) 40 mg tabletTake 1 tablet by mouth once daily.Disp: 90 tabletRfl: 3 albuterol HFA (PROAIR HFA) 90 mcg/actuation inhalerInhale 2 Puffs as instructed every 4 hours as needed.Disp: 1 EachRfl: 2 vit A,C,M-Jaze-Hohbxl (OCUVITE PRESERVISION) 2,148 mcg-113 mg-45 mg-17.4mg tabTake [...] mg by mout (more content not included)... [facility] 03-02-2023 Note HNO ID: [id number] Author: FLEX MEANS RN Service: ? Author Type: Registered Nurse Type: Progress Notes Filed: 03/02/2023 16:09 Note Text: pcp agrees with information [facility] 03-02-2023 Note HNO ID: [id number] Author: FLEX MEANS RN Service: ? Author Type: Registered Nurse Type: Progress Notes Filed: 03/02/2023 16:09 Note Text: patient had inr completed at [facility] patients inr is 1.7 (patients [...] 4 weeks (03/30/23) for follow up INR. [facility] 02-23-2023 Note HNO ID: [id number] Author: JOHANNA BENITES PA-C Service: ? Author Type: Physician Director Of Restaurants Type: Progress Notes Filed: 02/23/2023 14:58 Note [...] coughing around Thanksgiving. She was seen in [facility] 02/07 and treated with Doxycycline [...] Bronchiectasis (HCC) COPD (chronic obstructive pulmonary disease) ([facility]) Disseminated histoplasmosis Colitis, immunosuppression, 01/2018. Diverticulosis of colon (without mention of hemorrhage) Diverticulosis DVT, recurrent, lower extremity, acute ([facility]) 12/10/2014 Esophageal reflux Hiatal hernia 02/25/2018 Hypertension Lung nodule Personal history of unspecified urinary disorder 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 rheumatoid factor ([facility]) 03/07/2015 Dr. Hurley ([facility]) Unspecified hemorrhoids without mention of complication Hemorrhoids [...] fluticasone (FLONASE) 50 mcg/actuation nasal sprayUse 1 Gobles in each nostril once daily.Disp: 3 EachRfl: [address] (PROTONIX) 40 mg tabletTake 1 tablet by mouth once daily.Disp: 90 tabletRfl: 3 albuterol HFA (PROAIR HFA) 90 mcg/actuation inhalerInhale 2 Puffs as instructed every 4 hours as needed.Disp: 1 EachRfl: 2 vit A,C,A-Jwgv-Ctanzc (OCUVITE PRESERVISION) 2,148 mcg-113 mg-45 mg-17.4mg tabTake [...] FLX DX W/ (more content not included)... [facility] 02-21-2023 Note HNO ID: [id number] Author: Faviola Anthony RT(R) Service: ? Author Type: Rn Heart Type: Progress Notes Filed: 02/21/2023 3:59 PM [...] RT Maryann(R) February 21, 2023 3:59 PM [facility] 02-14-2023 Note Patient Outreach ([facility]) HAYDEE BUSTAMANTE ([id number]) 1945 F Date Time Provider Department 02/14/23 ILDA MILLER During your visit today, we recorded the following information about you: Ilda Miller RN 02/14/2023 9:29 AM Signed [facility] Telephonic Outreach Provider Action/SHAYNE N/A Follow up [...] I'm never short of breath. Based on it sales consultant, the following disposition is advised: No symptoms or symptoms present, not severe. Routed to: No Action Needed PAN Education Provided this Outreach: No Upcoming appointments reviewed: Appointments for Next 60 Days Date Time Provider Location Dept Phone 02/21/2023 8:[address] [facility] (I-STAT) [place] [phone] 02/21/2023 9:00 AM DELMIS JOHANNA Doretha [place] [phone] 03/02/2023 9:45 AM [facility] [phone] 04/09/2023 10:00 AM WILLIAM AMBRIZ [facility] [phone] Ilda Miller RN February 14, 2023 9:29 [...] (FLONASE) 50 mcg/actuation nasal spray Use 1 Gobles in each nostril once daily. - pantoprazole DR (PROTONIX) 40 mg tablet Take 1 tablet by mouth once daily. - albuterol HFA (PROAIR HFA) 90 mcg/actuation inhaler Inhale 2 Puffs as instructed every 4 hours as needed. - vit A,C,O-Byeb-Kdlibu (OCUVITE PRESERVISION) 2,148 mcg-113 mg-45 mg-17.4mg tab [...] by this patient by: PATIENT Muna Harris (Accounts Clerk) [facility] for senior living medications. Problem List As Of Date 02/14/2023 Noted Resolved ESOPHAGEAL REFLUX [K21.9] 03/06/2005 MERALGIA PARESTHETICA [G57.10] 03/06/2005 VOICE DISTURBANCE NEC [R49.8] 03/06/2005 Pain in joint, lower leg [M25.569] 10/18/2006 03/02/2018 Embolism and thrombosis (HCC) [I74.9] 11/23/2006 07/07/2021 ARTHROPATHY NOS-UNSPEC [M12.9] 12/05/2006 Enthesopathy of hip region [M76.899] 01/04/2009 07/07/2021 Elevated Liver Enzymes [R74.8] 04/01/2009 Rheumatoid arthritis (HCC) [M06.9] 04/01/2009 03/07/2015 skilled nursing current use of anticoagulant therapy *04/01/2009 Hypertension [I10] 04/13/2010 03/07/2015 Right sided sciatica [M54.31] 03/20/2011 03/30/2014 HNP (herniated nucleus pulposus), lumbar [M51.2*03/20/2011 Atrophic vaginitis [N95.2] 03/06/2013 Ganglion cyst [M67.40] 08/17/2014 DVT, recurrent, lower extremity, acute (HCC) [I*11/20 (more content not included)... [facility] 02-14-2023 Note HNO ID: [id number] Author: Ilda Miller RN Service: ? Author [...] I'm never short of breath. Based on it sales consultant, the following disposition is advised: No symptoms or symptoms present, not severe. Routed to: No Action Needed PAN Education Provided this Outreach: No Upcoming appointments reviewed: Appointments for Next 60 Days Date Time Provider Location Dept Phone 02/21/2023 8:20 AM [facility] (I-STAT) [place]once [phone] 02/21/2023 9:00 AM JOHANNA BENITES [phone] 03/02/2023 9:45 AM [facility] [place] [phone] 04/09/2023 10:00 AM WILLIAM AMBRIZ [facility] [phone] Ilda Miller RN February 14, 2023 9:29 AM [facility] 02-07-2023 Note HNO ID: [id number] Author: Kathleen Alegria RT(R) Service: Radiology Author [...] RT Mariela(R) February 07, 2023 11:06 AM [facility] 02-07-2023 Note HNO ID: [id number] Author: Adri Zaragoza APRN.WINDER HELPER Service: ? Author Type: Nurse Practitioner Type: [...] positive rheumatoid factor (HCC) 03/07/2015 Dr. Hurley ([facility]) Unspecified hemorrhoids without mention of complication Hemorrhoids [...] SPINE FUSN,POST INTERBODY 2012 Dr. Armando at [facility]. Diskectomy and laminectomy PAST SURGICAL [...] fluticasone (FLONASE) 50 mcg/actuation nasal sprayUse 1 Gobles in each nostril once daily.Disp: 3 EachRfl: [address] (PROTONIX) 40 mg tabletTake 1 tablet by mouth once daily.Disp: 90 tabletRfl: 3 albuterol HFA (PROAIR HFA) 90 mcg/actuation inhalerInhale 2 Puffs as instructed every 4 hours as needed.Disp: 1 EachRfl: 2 vit A,C,J-Obla-Bnblgg (OCUVITE PRESERVISION) 2,148 mcg-113 mg-45 mg-17.4mg tabTake [...] and nursing n (more content not included)... [facility] 02-07-2023 History of Presen t illness Narrative [...] hemorrhage) Diverticulosis DVT, recurrent, lower extremity, acute ([facility]) 12/10/2014 Esophageal reflux Hiatal hernia 02/25/2018 Hypertension Lung nodule Personal history of unspecified urinary disorder 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 rheumatoid factor ([facility]) 03/07/2015 Dr. Hurley ([facility]) Unspecified hemorrhoids without mention of complication Hemorrhoids [...] SPINE FUSN,POST INTERBODY 2011 Dr. Armando at [facility]. Diskectomy and laminectomy PAST SURGICAL [...] fluticasone (FLONASE) 50 mcg/actuation nasal spray^Use 1 Gobles in each nostril once daily.^Disp: 3 Each^Rfl: [address] (PROTONIX) 40 mg tablet^Take 1 tablet by mouth once daily.^Disp: 90 tablet^Rfl: 3 albuterol HFA (PROAIR HFA) 90 mcg/actuation inhaler^Inhale 2 Puffs as instructed every 4 hours as needed.^Disp: 1 Each^Rfl: 2 vit A,C,W-Tjce-Efqyxm (OCUVITE PRESERVISION) 2,148 mcg-113 mg-45 mg-17.4mg tab^Take [...] A/B & RSV NAAT, ROUTINE Adri Zaragoza APRN.WINDER HELPER documented in this encounter [facility] 02-05-2023 Note Patient Outreach ([facility]) HAYDEE BUSTAMANTE ([id number]) 1945 F Date Time Provider Department 02/05/23 ILDA MILLER During your visit today, we recorded the following information about you: Ilda Miller RN 02/05/2023 9:35 AM Signed [facility] ESCALATION Provider Action / FYI: N/A Message received via: cotton opener Pool Are you having any new symptoms that your PCP needs to know about? Yes Do you have new or worsening cough? Yes Do you need to use your rescue (Albuterol) inhaler or nebulizer more often than normal? Yes Contact made with patient: Yes The patient was identified by name and date of . Discussed Care with patient Based on it sales consultant, the following disposition is advised: No symptoms [...] in bedroom at night. Advised evaluation at [facility]. Pt is agreeable to this and will go today to [facility] for evaluation. Advised if becomes SOB or [...] Visit: Community Monitoring Outreach [Other] Cmt: GIGI Escalation-[facility] questionnaire triggered call Primary Visit Diagnosis:Chronic obstructive pulmonary disease with acute exacerbation (HCC) [J44.1] Order(s):PT ED PULMONARY [[id number]] Order #: [id number]: 1 Prescriptions as of 02/05/2023 - budesonide-formoterol [...] (FLONASE) 50 mcg/actuation nasal spray Use 1 Gobles in each nostril once daily. - pantoprazole DR (PROTONIX) 40 mg tablet Take 1 tablet by mouth once daily. - albuterol HFA (PROAIR HFA) 90 mcg/actuation inhaler Inhale 2 Puffs as instructed every 4 hours as needed. - vit A,C,E-Ftoy-Wibxdf (OCUVITE PRESERVISION) 2,148 mcg-113 mg-45 mg-17.4mg tab [...] by this patient by: PATIENT Muna Harris (Accounts Clerk) [facility] for superintendent marine oil [employer] medications. Problem List As Of Date 02/05/2023 Noted Resolved ESOPHAGEAL REFLUX [K21.9] 03/06/2005 MERALGIA PARESTHETICA [G57.10] 03/06/2005 VOICE DISTURBANCE NEC [R49.8] 03/06/2005 Pain in joint, lower leg [M25.569] 10/18/2006 03/02/2018 Embolism and thrombosis (HCC) [I74.9] 11/23/2006 07/07/2021 ARTHROPATHY NOS-UNSPEC [M12.9] more content not included)... [facility] 02-05-2023 Note HNO ID: [id number] Author: Ilda Miller RN Service: ? Author Type: Registered Nurse Type: Progress Notes Filed: 02/05/2023 9:35 AM Note Text: CDM ESCALATION Provider Action / FYI: N/A Message received via: cotton opener Pool Are you having any new symptoms that your PCP needs to know about? Yes Do you have new or worsening cough? Yes Do you need to use your rescue (Albuterol) inhaler or nebulizer more often than normal? Yes Contact made with patient: Yes The patient was identified by name and date of . Discussed Care with patient Based on it sales consultant, the following disposition is advised: No symptoms [...] in bedroom at night. Advised evaluation at [facility]. Pt is agreeable to this and will go today to [facility] for evaluation. Advised if becomes SOB or cough worsens to the point of not being able to catch her breath, or notes bluish tint around lips to go to nearest ED or call 911. Verbalizes understanding and agreement. Ilda Miller RN February 05, 2023 9:19 AM [facility] 02-02-2023 Note HNO ID: [id number] Author: Flex Means RN Service: ? Author Type: ? Type: Progress Notes Filed: 02/02/2023 3:19 PM Note Text: pcp agrees with information [facility] 02-02-2023 History of Presen t illness Narrative pcp agrees with information patient had inr completed at [facility] patients inr is 2.1 (patients [...] up INR. documented in this encounter [facility] 02-02-2023 Note HNO ID: [id number] Author: Flex Means RN Service: ? Author Type: ? Type: Progress Notes Filed: 02/02/2023 3:19 PM Note Text: patient had inr completed at [facility] patients inr is 2.1 (patients [...] 4 weeks (03/02/23) for follow up INR. [facility] 01-24-2023 Miscellaneous Notes GEREMIAS 07/20/22 Patient phones requesting refills as follows: Requested Prescriptions Pending Prescriptions Disp Refills budesonide-formoterol (SYMBICORT) 160-4.5 mcg/actuation inhaler [Pharmacy Med Name: BUDESONIDE/FORM INHALER 10.2GM 160/4.5MCG] 30.6 g 3 Sig: USE 2 INHALATIONS TWICE A DAY INSTRUCTED Please review and advise. Magalie Ngo LPN documented in this encounter [facility] 01-17-2023 Note HNO ID: [id number] Author: Flex Means RN Service: ? Author Type: ? Type: Progress Notes Filed: 01/17/2023 3:02 PM Note Text: pcp agrees with information [facility] 01-17-2023 Note HNO ID: [id number] Author: Flex Means RN Service: ? Author Type: ? Type: Progress Notes Filed: 01/17/2023 3:02 PM Note Text: patient had inr completed at [facility] patients inr is 1.9 (patients [...] the first normal reading since dose change [facility] 01-17-2023 History of Presen t illness Narrative pcp agrees with information patient had inr completed at [facility] patients inr is 1.9 (patients [...] dose change documented in this encounter [facility] 01-10-2023 Note HNO ID: [id number] Author: Flex Means RN Service: ? Author Type: ? Type: Progress Notes Filed: 01/10/2023 3:47 PM Note Text: pcp agrees with information PATIENT NOTIFIED OF INFORMATION [facility] 01-10-2023 History of Presen t illness Narrative pcp agrees with information PATIENT NOTIFIED OF INFORMATION patient had inr completed at [facility] patients inr is 2.9 (patients [...] on recommendation documented in this encounter [facility] 01-10-2023 Note HNO ID: [id number] Author: Flex Means RN Service: ? Author Type: ? Type: Progress Notes Filed: 01/10/2023 3:47 PM Note Text: patient had inr completed at [facility] patients inr is 2.9 (patients [...] 01/17/23 please review and advise on recommendation [facility] 01-04-2023 Note HNO ID: [id number] Author: Yesenia Weinstein LPN Service: ? Author Type: ? Type: Progress Notes Filed: 01/04/2023 4:25 PM Note Text: Patient notified of providers message and verbalized understanding. [facility] 01-04-2023 Note HNO ID: [id number] Author: Jimbo Carias APRN.TYLOR Service: ? Author Type: Nurse Specialist Type: Progress Notes Filed: 01/04/2023 4:25 PM Note Text: OK to change coumadin to 7.5mg Tues,Sat,Sun and 5mg all other days and recheck INR in 1 week [facility] 01-04-2023 History of Presen t illness Narrative Patient notified of providers message and verbalized understanding. OK to change coumadin to 7.5mg Tues,Sat,Sun and 5mg all other days and recheck INR in 1 week patient had inr completed at [facility] patients inr is 2.6 (patients [...] on recommendation documented in this encounter [facility] 01-04-2023 Note HNO ID: [id number] Author: Flex Means RN Service: ? Author Type: ? Type: Progress Notes Filed: 01/04/2023 4:25 PM Note Text: patient had inr completed at [facility] patients inr is 2.6 (patients [...] 01/10/23 please review and advise on recommendation [facility] 01-04-2023 Note HNO ID: [id number] Author: Jimbo Carias APRN.AUTOMATION TECH Service: ? Author Type: Nurse Specialist Type: [...] and COPD. HPI excerpted from previous visits: Intelligence Research Specialist: Florence Terry MD, last seen July 20, 2022. Seen for follow-up of lung nodules bronchiectasis. Noted are a likely etiology for underlying bronchiectasis. Noted new nodularity of lung, likely represents inflammatory nodules. Will need follow-up CT. No this may improve with bronchopulmonary hygiene. Spiriva and intermittent albuterol has helped with cough. Stable. Pricing/Signage Team Member: William Ambriz BAV, aortic stenosis , last seen in cardiology August 29, 2022 by Rachelle Lai CNP. Continued on current treatments unchanged. Follow-up echo advised, not yet scheduled.. Mat Machine Tender: [facility]. Continues with methotrexate, Humira.seen by [...] Occasional bruising. [facility] coumadin clinic. Referred by analysis specialist to see orthopedic physician for her hip. [...] fluticasone (FLONASE) 50 mcg/actuation nasal sprayUse 1 Gobles in each nostril once daily.Disp: 3 EachRfl: [address] (PROTONIX) 40 mg tabletTake 1 tablet by mouth once daily.Disp: 90 tabletRfl: 3 albuterol HFA (PROAIR HFA) 90 mcg/actuation inhalerInhale 2 Puffs as instructed every 4 hours as needed.Disp: 1 EachRfl: 2 vit A,C,O-Rkfv-Jpyemh (OCUVITE PRESERVISION) 2,148 mcg-113 mg-45 mg-17.4mg tabTake 2 tablets by mouth daily with breakfast.Disp: Rfl: potassium chloride ER (KLOR-CON M20) 20 mEq tabletTake 1 tablet by mouth twice daily.Disp: 180 tabletRfl: 3 leucovorin (LEUCOVORIN) 15 mg table (more content not included)... [facility] 01-04-2023 Instructions Jimbo Carisa APRN.CNS - 01/04/2023 10:50 AM EST It appears that you have better coverage for the RSV vaccine at your local pharmacy. documented in this encounter [facility] 01-04-2023 History of Presen t illness [...] and COPD. HPI excerpted from previous visits: Intelligence Research Specialist: Florence Terry MD, last seen July 20, 2022. Seen for follow-up of lung nodules bronchiectasis. Noted are a likely etiology for underlying bronchiectasis. Noted new nodularity of lung, likely represents inflammatory nodules. Will need follow-up CT. No this may improve with bronchopulmonary hygiene. Spiriva and intermittent albuterol has helped with cough. Stable. Pricing/Signage Team Member: William Ambriz BAV, aortic stenosis , last seen in cardiology August 29, 2022 by Rachelle Lai CNP. Continued on current treatments unchanged. Follow-up echo advised, not yet scheduled.. Mat Machine Tender: [facility]. Continues with methotrexate, Humira.seen by Dr. [...] Occasional bruising. [facility] coumadin clinic. Referred by analysis specialist to see orthopedic physician for her hip. [...] fluticasone (FLONASE) 50 mcg/actuation nasal spray^Use 1 Gobles in each nostril once daily.^Disp: 3 Each^Rfl: [address] (PROTONIX) 40 mg tablet^Take 1 tablet by mouth once daily.^Disp: 90 tablet^Rfl: 3 albuterol HFA (PROAIR HFA) 90 mcg/actuation inhaler^Inhale 2 Puffs as instructed every 4 hours as needed.^Disp: 1 Each^Rfl: 2 vit A,C,S-Dvzt-Wtdrie (OCUVITE PRESERVISION) 2,148 mcg-113 mg-45 mg-17.4mg tab^Take [...] hemorrhage) Diverticulosis DVT, recurrent, lower extremity, acute ([facility]) 12/10/2014 Esophageal reflux Hiatal hernia 02/25/2018 Hypertension Lung nodule Personal history of unspecified urinary disorder 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 rheumatoid factor ([facility]) 03/07/2015 Dr. Hurley ([facility]) Unspecified hemorrhoids without mention of complication Hemorrhoids [...] to get at pharmacy discussed risks - Zhui Xin-ttwick COVID-19 VACCINE ( SEASON) AGE 12+ YR in office today Jimbo Carias APRN.AUTOMATION TECH Medical Decision Making: Problems: Low: 2+ self-limited or minor problems Risk: Moderate: Drug management Medical Decision Making Level: 3 - Low documented in this encounter [facility] 12-20-2022 Miscellaneous Notes Patient has been [...] Preston LPN. documented in this encounter [facility] 12-14-2022 Note HNO ID: [id number] Author: Jimbo Carias APRN.AUTOMATION TECH Service: ? Author Type: Nurse Specialist Type: Progress Notes Filed: 12/14/2022 3:38 PM Note Text: Continue with Coumadin dose unchanged and check INR in 2 or 3 weeks [facility] 12-14-2022 Note HNO ID: [id number] Author: Flex Means RN Service: ? Author [...] week lauryn and patient declines blood draw [facility] 12-14-2022 History of Presen t illness Narrative Continue with Coumadin dose unchanged and check INR in 2 or 3 weeks patient had inr completed at [facility] patients inr is 2.2 (patients [...] blood draw documented in this encounter [facility] 12-07-2022 Note HNO ID: [id number] Author: Yesenia Weinstein LPN Service: ? Author Type: ? Type: Progress Notes Filed: 12/07/2022 4:46 PM Note Text: Patient notified of providers message regarding coumadin instructions and verbalized understanding. [facility] 12-07-2022 Note HNO ID: [id number] Author: Jimbo Carias APRN.TYLOR Service: ? Author Type: Nurse Specialist Type: Progress Notes Filed: 12/07/2022 4:46 PM Note Text: Recommend Coumadin 5 mg Sunday and 7.5 mg all other days and check INR in 1 week [facility] 12-07-2022 History of Presen t illness Narrative Patient notified of providers message regarding coumadin instructions and verbalized understanding. Recommend Coumadin 5 mg Sunday and 7.5 mg all other days and check INR in 1 week patient had inr completed at [facility] patients inr is 2.5 (patients [...] on recommendation documented in this encounter [facility] 12-07-2022 Note HNO ID: [id number] Author: lFex Means RN Service: ? Author Type: ? Type: Progress Notes Filed: 12/07/2022 4:46 PM Note Text: patient had inr completed at [facility] patients inr is 2.5 (patients [...] 12/14/22 please review and advise on recommendation [facility] 11-20-2022 Miscellaneous Notes November 20, 2022 PID: [id number] Haydee Bustamante [address] [place] [address] Dear Ms. Bustamante, We are pleased to [...] will be kept on file at [facility] as part of your permanent medical record and are available for your continuing care. Thank you for allowing us to help in meeting your health care needs. Sincerely, Dr. Basurto Interpreting Radiologist [facility] (Normal over 40) documented in this encounter [facility] 11-17-2022 Note HNO ID: [id number] Author: Aide Gupta, RT(R) Service: ? Author [...] Rosa Maria(R) November 17, 2022 9:00 AM [facility] 11-17-2022 Note HNO ID: [id number] Author: Shahnaz Ferguson Mammo Tech Service: ? Author Type: Rn Heart Type: Progress Notes Filed: 11/17/2022 9:25 AM [...] Haider Adams November 17, 2022 9:00 AM [facility] 11-17-2022 History of Presen t illness Narrative [...] 2022 9:00 AM documented in this encounter [facility] 11-17-2022 Miscellaneous Notes Negative, 1 year screening follow-up documented in this encounter [facility] 11-09-2022 Note HNO ID: [id number] Author: Jimbo Carias APRN.CNS Service: ? Author Type: Nurse Specialist Type: Progress Notes Filed: 11/09/2022 4:58 PM Note Text: Continue Coumadin dose unchanged and check INR in 4 weeks [facility] 11-09-2022 History of Presen t illness Narrative Continue Coumadin dose unchanged and check INR in 4 weeks patient had inr completed at [facility] patients inr is 1.9 (patients [...] up INR. documented in this encounter [facility] 11-09-2022 Note HNO ID: [id number] Author: Flex Means RN Service: ? Author Type: ? Type: Progress Notes Filed: 11/09/2022 4:58 PM Note Text: patient had inr completed at [facility] patients inr is 1.9 (patients [...] 4 weeks (12/07/22) for follow up INR. [facility] 11-09-2022 Note HNO ID: [id number] Author: Ron Bell MD Service: ? Author Type: Physician Type: Progress Notes Filed: 12/07/2022 8:52 AM Note Text: Ron Bell MD Department of Orthopaedics Orthopaedics [address] [place] [address] Dept: [phone] Dept November 09, 2022 CHIEF COMPLAINT: New [...] acute pathology. 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 [employer] Tanker Driver: KRYSTAL Transcribe Date/Time: Dec 31 2021 11:55A [...] hemorrhage) Diverticulosis DVT, recurrent, lower extremity, acute ([facility]) 12/10/2014 Esophageal reflux Hiatal hernia 02/25/2018 Hypertension Lung nodule Personal history of unspecified urinary disorder 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 rheumatoid factor ([facility]) 03/07/2015 Dr. Hurley ([facility]) Unspecified hemorrhoids without mention of complication Hemorrhoids [...] SPINE FUSN,POST INTERBODY 2012 Dr. Armando at [facility]. Diskectomy and laminectomy PAST SURGICAL HISTORY OF 03/07/1999 removal facial lesion PAST SURGICAL HISTORY OF 08/17/2014 excision soft tissue mass left index finger TONSILLECTOMY PRIMARY/SECONDARY TRANSCATH RETRIEVAL,JEVON 12/28/2006 Family History: FAMILY HISTORY Problem Relation Age of Onset Cancer Mother brain Social History: Social History To (more content not included)... [facility] 11-09-2022 Miscellaneous Notes patients orders for coumadin clinic inr's has at this time. new order has been pended for approval if possible so that patient can continue to get inr's completed thru the coumadin clinic. coumadin clinic nurse only needs called if order can not be approved. documented in this encounter [facility] 11-09-2022 History of Presen t illness Narrative Ron Bell MD Department of Orthopaedics Orthopaedics [facility] [address] [facility] [address] Dept: [phone] Dept November 09, 2022 CHIEF COMPLAINT: New [...] acute pathology. 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) Disseminated histoplasmosis Colitis, immunosuppression, 01/2018. Diverticulosis of colon (without mention of hemorrhage) Diverticulosis DVT, recurrent, lower extremity, acute ([facility]) 12/10/2014 Esophageal reflux Hiatal hernia 02/25/2018 Hypertension Lung nodule Personal history of unspecified urinary disorder 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 rheumatoid factor ([facility]) 03/07/2015 Dr. Hurley ([facility]) Unspecified hemorrhoids without mention of complication Hemorrhoids [...] SPINE FUSN,POST INTERBODY 2012 Dr. Armando at [facility]. Diskectomy and laminectomy PAST SURGICAL [...] (FLONASE) 50 mcg/actuation nasal spray Use 1 Gobles in each nostril once daily. pantoprazole DR (PROTONIX) 40 mg tablet Take 1 tablet by mouth once daily. albuterol HFA (PROAIR HFA) 90 mcg/actuation inhaler Inhale 2 Puffs as instructed every 4 hours as needed. vit A,C,V-Zyev-Siujss (OCUVITE PRESERVISION) 2,148 mcg-113 mg-45 mg-17.4mg tab [...] physician via US mail. Jeana Sommers [address] [facility] [address] Claudine Durán MD [address] [facility] [address] Ron Bell MD documented in this encounter [facility] 11-02-2022 Miscellaneous Notes Patient calls back and states that Rit[facility] does have prescription for coumadin. Isabella Zacarias RN Patient calling to say [facility] tells her they did not receive script for short fill Warfarin. Patient asking if it can be sent again. Pended. Melanie Mcgregor RN documented in this encounter [facility] 10-31-2022 Miscellaneous Notes Last OV: 10/27/22 [...] Perez LPN documented in this encounter [facility] 10-31-2022 Miscellaneous Notes Patient calling with request for medication/refill: Patient/caregiver requesting refill of Warfarin be called to [facility] at online.. Patient denies any new or worsening symptoms of which a provider is not aware: Yes. Patient just discovered she will run out of the below rx on . Is requesting a short term supply be sent to [facility] in [place] and the remainder sent to [facility]. Has been taking medication as ordered. warfarin (COUMADIN) 5 mg tablet 30 tablet 3 07/11/2022 Sig: Take 7.5 mg , Sun,Sun, Sun, Sun; and 5 mg on Sunday and Sunday Sent to pharmacy as: warfarin (COUMADIN) 5 mg tablet documented in this encounter [facility] 10-27-2022 Note HNO ID: [id number] Author: Jimbo Carias APRN.AUTOMATION TECH Service: ? Author Type: Nurse Specialist Type: [...] bicuspid valve, lung nodule bronchiectasis and COPD. Intelligence Research Specialist: Florence Terry MD, last seen July 20, 2022. Seen for follow-up of lung nodules bronchiectasis. Noted are a likely etiology for underlying bronchiectasis. Noted new nodularity of lung, likely represents inflammatory nodules. Will need follow-up CT. No this may improve with bronchopulmonary hygiene. Spiriva and intermittent albuterol has helped with cough. Stable. Pricing/Signage Team Member: William Ambriz BAV, aortic stenosis , last seen in cardiology August 29, 2022 by Rachelle Lai CNP. Continued on current treatments unchanged. Follow-up echo advised, not yet scheduled.. Mat Machine Tender: [facility]. Continues with methotrexate, Humira.seen by Dr. Roque Zacarias 06/26/2022 for RA, osteoporosis, degenerative disc disease, arthritis of foot, osteoarthritis of bilateral hands. DEXA scan completed, showed osteoporosis. All yes trying recommended restart of Reclast. Weight: stable Exercise: walking miles most days, feeling well with this . 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 [...] pain, currently taking gabapentin. Plans to see job placement specialist, referred by analysis specialist. Referred by analysis specialist to see orthopedic physician for her hip. [...] fluticasone (FLONASE) 50 mcg/actuation nasal sprayUse 1 Gobles in each nostril once daily.Disp: 3 EachRfl: [...] hours as needed.Disp: 1 EachRfl: 2 vit A,C,X-Vgat-Fclwxr (OCUVITE PRESERVISION) 2,148 mcg-113 mg-45 mg-17.4mg tabTake [...] puffs once da (more content not included)... [facility] 10-27-2022 History of Presen t illness Narrative [...] bicuspid valve, lung nodule bronchiectasis and COPD. Intelligence Research Specialist: Florence Terry MD, last seen July 20, 2022. Seen for follow-up of lung nodules bronchiectasis. Noted are a likely etiology for underlying bronchiectasis. Noted new nodularity of lung, likely represents inflammatory nodules. Will need follow-up CT. No this may improve with bronchopulmonary hygiene. Spiriva and intermittent albuterol has helped with cough. Stable. Pricing/Signage Team Member: William Ambriz BAV, aortic stenosis , last seen in cardiology August 29, 2022 by Rachelle Lai CNP. Continued on current treatments unchanged. Follow-up echo advised, not yet scheduled.. Mat Machine Tender: [facility]. Continues with methotrexate, Humira.seen by [...] pain, currently taking gabapentin. Plans to see job placement specialist, referred by analysis specialist. Referred by analysis specialist to see orthopedic physician for her hip. [...] fluticasone (FLONASE) 50 mcg/actuation nasal spray^Use 1 Gobles in each nostril once daily.^Disp: 3 Each^Rfl: [...] hours as needed.^Disp: 1 Each^Rfl: 2 vit A,C,U-Tkfx-Vfesll (OCUVITE PRESERVISION) 2,148 mcg-113 mg-45 mg-17.4mg tab^Take [...] positive rheumatoid factor (HCC) 03/07/2015 Dr. Hurley ([facility]) Unspecified hemorrhoids without mention of complication Hemorrhoids [...] ICD9: 724.3, ICD10: M54.41 Plans to see job placement specialist 6. Hip pain, acute, left - ICD9: 719.45, ICD10: M25.552 7. 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 rheumatoid factor (HCC) - ICD9: 714.0, ICD10: M05.[address] [facility] 8. Bronchiectasis without complication (HCC) - ICD9: [...] - Moderate documented in this encounter [facility] 10-27-2022 Instructions Jimbo Carias APRN.CNS - 10/27/2022 9:01 AM EDT Consider getting new COVID booster when it becomes available either in clinic or at pharmacy. documented in this encounter [facility] 10-26-2022 Note HNO ID: [id number] Author: Jimbo Carias APRN.CNS Service: ? Author Type: Nurse Specialist Type: Progress Notes Filed: 10/26/2022 4:39 PM Note Text: Continue with Coumadin dose unchanged and check INR in 2 weeks [facility] 10-26-2022 History of Presen t illness Narrative Continue with Coumadin dose unchanged and check INR in 2 weeks patient had inr completed at [facility] patients inr is 1.7 (patients [...] dose change documented in this encounter [facility] 10-26-2022 Note HNO ID: [id number] Author: Flex Means RN Service: ? Author Type: ? Type: Progress Notes Filed: 10/26/2022 4:39 PM Note Text: patient had inr completed at [facility] patients inr is 1.7 (patients [...] the first normal reading since dose change [facility] 10-12-2022 Note HNO ID: [id number] Author: Maritza Preston LPN Service: ? Author Type: ? Type: Progress Notes Filed: 10/13/2022 10:06 AM Note Text: Left message to call AND speak to nurse re: Coumadin. Maritza Preston LPN [facility] 10-12-2022 Note HNO ID: [id number] Author: Jimbo Carias APRN.AUTOMATION TECH Service: ? Author Type: Nurse Specialist Type: Progress Notes Filed: 10/13/2022 10:06 AM Note Text: Okay to change coumadin dose to 5mg Mon,Wed and 7.5mg all other days and recheck inr in 2 weeks [facility] 10-12-2022 History of Presen t illness Narrative Left message to call & speak to nurse re: Coumadin. Maritza Preston LPN Okay to change coumadin dose to 5mg Mon,Wed and 7.5mg all other days and recheck inr in 2 weeks patient had inr completed at [facility] patients inr is 1.5 (patients [...] on recommendation documented in this encounter [facility] 10-12-2022 Note HNO ID: [id number] Author: Flex Means RN Service: ? Author Type: ? Type: Progress Notes Filed: 10/13/2022 10:06 AM Note Text: patient had inr completed at [facility] patients inr is 1.5 (patients [...] 10/26/22 Please review and advise on recommendation [facility] 10-09-2022 Miscellaneous Notes Patient does not take [...] CARMEN Viveros documented in this encounter [facility] 09-28-2022 Note HNO ID: [id number] Author: Jimbo Carias APRN.AUTOMATION TECH Service: ? Author Type: Nurse Specialist Type: Progress Notes Filed: 09/28/2022 4:12 PM Note Text: Continue with Coumadin dose unchanged and check INR in 2 weeks [facility] 09-28-2022 Note HNO ID: [id number] Author: Flex Means RN Service: ? Author Type: ? Type: Progress Notes Filed: 09/28/2022 4:12 PM Note Text: patient had inr completed at [facility] patients inr is 1.8 (patients [...] the first normal reading since dose change [facility] 09-25-2022 Miscellaneous Notes Called PT and put [...] ~ JJ documented in this encounter [facility] 09-15-2022 Miscellaneous Notes Pt called and [...] pt findings. documented in this encounter [facility] 09-07-2022 Note HNO ID: [id number] Author: Flex Means RN Service: ? Author Type: ? Type: Progress Notes Filed: 09/07/2022 4:08 PM Note Text: PATIENT NOTIFIED OF INFORMATION [facility] 09-07-2022 Note HNO ID: [id number] Author: Jimbo Carias APRN.AUTOMATION TECH Service: ? Author Type: Nurse Specialist Type: Progress Notes Filed: 09/07/2022 4:08 PM Note Text: Okay for 5 mg Coumadin Sunday and 7.5 mg all other days. Recheck INR in 1 week [facility] 09-07-2022 History of Presen t illness Narrative PATIENT NOTIFIED OF INFORMATION Okay for 5 mg Coumadin Sunday and 7.5 mg all other days. Recheck INR in 1 week patient had inr completed at [facility] patients inr is 2.4 (patients [...] 3 weeks patient has been scheduled at [facility] for an inr follow up 09/14/22 (order is already in place) please review and advise on recommendation documented in this encounter [facility] 09-07-2022 Note HNO ID: [id number] Author: Flex Means RN Service: ? Author Type: ? Type: Progress Notes Filed: 09/07/2022 4:08 PM Note Text: patient had inr completed at [facility] patients inr is 2.4 (patients [...] 3 weeks patient has been scheduled at [facility] for an inr follow up 09/14/22 (order is already in place) please review and advise on recommendation [facility] 08-29-2022 Note HNO ID: [id number] Author: Rachelle Lai APRN.CNP Service: ? Author Type: Nurse Practitioner Type: Progress Notes Filed: 09/11/2022 10:01 AM Note Text: [facility] [place] [facility] Department of Cardiovascular Medicine SECTION [...] which included preparing to see the patient, [id number] patient care, completing clinical documentation, performing a [...] prior to the follow up. Rachelle Lai APRN.[facility] Cardiology Nurse Practitioner Section of [facility] Cardiology [facility] Dept of Cardiovascular Medicine [facility] [place] [address] Office Office August 29, 2022 7:46 AM This note was partially generated using [employer] voice recognition system and may contain errors [...] has progressed. :5 (more content not included)... [facility] 08-29-2022 Instructions Rachelle Lai APRN.CNP - 08/29/2022 [...] 6 months documented in this encounter [facility] 08-29-2022 History of Presen t illness Narrative Images from the original note were not included. [facility] [place] [facility] Department of Cardiovascular Medicine SECTION [...] which included preparing to see the patient, [id number] patient care, completing clinical documentation, performing a [...] prior to the follow up. Rachelle Lai APRN.[facility] Cardiology Nurse Practitioner Section of [facility] Card[facility] Dept of Cardiovascular Medicine [facility] [place] [address] [place] [address] Office Office August 29, 2022 7:46 AM This note was partially generated using [employer] recognition system and may contain errors related [...] nodule with faint calcifications suggesting calcified granuloma. [employer] Tanker Driver: PSCB Transcribe Date/Time: Jul 24 2022 10:02A [...] Anemia Bone marrow involvement with histoplasmosis Bronchiectasis ([facility]) COPD (chronic obstructive pulmonary disease) ([facility]) Disseminated histoplasmosis Colitis, immunosuppression, 01/2018. Diverticulosis of colon (without mention of hemorrhage) Diverticulosis DVT, recurrent, lower extremity, acute ([facility]) 12/10/2014 Esophageal reflux Hiatal hernia 02/25/2018 Hypertension Lung nodule Personal history of unspecified urinary disorder 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 rheumatoid factor ([facility]) 03/07/2015 Dr. Hurley ([facility]) Unspecified hemorrhoids without mention of complication Hemorrhoids [...] and ROS obtained by others. Rachelle Lai, FRONT END DEVELOPER JAVASCRIPT HTML CSS.WINDER HELPER CURRENT MEDICATIONS: Current Outpatient Medications Medication Sig budesonide-formoterol (SYMBICORT) 160-4.5 mcg/actuation inhaler Inhale 2 Puffs as instructed twice daily. fluticasone (FLONASE) 50 mcg/actuation nasal spray Use 1 Gobles in each nostril once daily. warfarin (COUMADIN) 5 mg tablet Take 7.5 mg , Sun,Sun, Sun, Sun; and 5 mg on Sunday and Sunday pantoprazole DR (PROTONIX) 40 mg tablet Take 1 tablet by mouth once daily. albuterol HFA (PROAIR HFA) 90 mcg/actuation inhaler Inhale 2 Puffs as instructed every 4 hours as needed. vit A,C,B-Ifdj-Ogfrqu (OCUVITE PRESERVISION) 2,148 mcg-113 mg-45 mg-17.4mg tab [...] DIRECTED PRN documented in this encounter [facility] 08-15-2022 Miscellaneous Notes GEREMIAS 07/20/22 Patient phones requesting refills as follows: Requested Prescriptions Pending Prescriptions Disp Refills budesonide-formoterol (SYMBICORT) 160-4.5 mcg/actuation inhaler Sig: Inhale as instructed twice daily. Please review and advise. Magalie Ngo LPN documented in this encounter [facility] 08-13-2022 Miscellaneous Notes Glad doing better. Thanks for update. Pt calls office /c update. She states she is on her 4th day of prednisone and she is feeling much better, feeling great. She states her pain is cut in half now. Bakari Catalan LPN documented in this encounter [facility] 08-10-2022 Note HNO ID: [id number] Author: Maritza Preston LPN Service: ? Author Type: ? Type: Progress Notes Filed: 08/10/2022 4:48 PM Note Text: Left below on identified vm, asked Patient to call back to let the office know she did receive. Maritza Preston LPN [facility] 08-10-2022 Note HNO ID: [id number] Author: Jimbo Carias APRN.AUTOMATION TECH Service: ? Author Type: Nurse Specialist Type: Progress Notes Filed: 08/10/2022 4:48 PM Note Text: Continue with Coumadin dose unchanged and check INR in 4 weeks [facility] 08-10-2022 Note HNO ID: [id number] Author: Flex Means RN Service: ? Author Type: ? Type: Progress Notes Filed: 08/10/2022 4:48 PM Note Text: patient had inr completed at [facility] patients inr is 2.1 (patients [...] 4 weeks (09/07/22) for follow up INR. [facility] 07-27-2022 Note HNO ID: [id number] Author: Maritza Preston LPN Service: ? Author Type: ? Type: Progress Notes Filed: 07/27/2022 3:20 PM Note Text: Below left on identified vm. Patient is already scheduled in 2 weeks. Maritza Preston LPN [facility] 07-27-2022 Note HNO ID: [id number] Author: Jimbo Carias APRN.AUTOMATION TECH Service: ? Author Type: Nurse Specialist Type: Progress Notes Filed: 07/27/2022 3:20 PM Note Text: Continue with current dosing and check INR 2 weeks [facility] 07-27-2022 Note HNO ID: [id number] Author: Flex Means RN Service: ? Author Type: ? Type: Progress Notes Filed: 07/27/2022 3:20 PM Note Text: patient had inr completed at [facility].2[facility] patient is currently [...] the first normal reading since dose change [facility] 07-20-2022 Note HNO ID: [id number] Author: Florence Terry MD Service: ? Author Type: Physician Type: Progress Notes Filed: 07/25/2022 12:42 PM Note Text: . [facility] [place] Note Patient name: Haydee Bustamante PCP: Claudine Durán MD CC: Follow-up chest CT HPI: Haydee Bustamante 77 year old female former 10 pack year smoker with PMH significant for RA (MTX, Humira), HTN, h/o disseminated Histoplasmosis, bronchiectasis, , VTE, pulmonary nodules, who presents for follow-up. Current inhaled therapy with Symbicort and Spiriva. At [facility] with sc, she was a new patient to [facility] formerly followed by Dr. Andujar. She had [...] DATE OF EXAM: Jul 20 2022 9:22AM [facility] 0541 - CT CHEST WO IVCON / [...] abdomen within the limits of noncontrast technique.. Burn Nurse (topogram) images: IVC filter present IMPRESSION: Findings [...] prominent, not pathologi (more content not included)... [facility] 07-20-2022 Note HNO ID: [id number] Author: RT Edwin(R) Service: ? Author Type: Rn Heart Type: Progress Notes Filed: 07/20/2022 9:35 AM [...] RT Maryann(R) July 20, 2022 9:35 AM [facility] 07-20-2022 History of Presen t illness Narrative Images from the original note were not included. . [facility] [place] Note Patient name: Haydee Bustamante PCP: Claudine Durán MD CC: Follow-up chest CT HPI: Haydee Bustamante 77 year old female former 10 pack year smoker with PMH significant for RA (MTX, Humira), HTN, h/o disseminated Histoplasmosis, bronchiectasis, , VTE, pulmonary nodules, who presents for follow-up. Current inhaled therapy with Symbicort and Spiriva. At [facility] with me, she was a new [...] DATE OF EXAM: Jul 20 2022 9:22AM [facility] 0541 - CT CHEST WO IVCON / [...] abdomen within the limits of noncontrast technique.. Burn Nurse (topogram) images: IVC filter present IMPRESSION: Findings [...] hemorrhage) Diverticulosis DVT, recurrent, lower extremity, acute ([facility]) 12/10/2014 Esophageal reflux Hiatal hernia 02/25/2018 Hypertension Lung nodule Personal history of unspecified urinary disorder 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 rheumatoid factor ([facility]) 03/07/2015 Dr. Hurley ([facility]) Unspecified hemorrhoids without mention of complication Hemorrhoids [...] hours as needed.^Disp: 1 Each^Rfl: 2 vit A,C,O-Dlan-Gavsnn (OCUVITE PRESERVISION) 2,148 mcg-113 mg-45 mg-17.4mg tab^Take [...] fluticasone (FLONASE) 50 mcg/actuation nasal spray^Use 1 Gobles in each nostril once daily.^Disp: 3 Each^Rfl: [...] SPINE FUSN,POST INTERBODY 2012 Dr. Armando at [facility]. Diskectomy and laminectomy PAST SURGICAL [...] her underlying bronchiectasis Florence Terry MD [facility] [place] documented in this encounter [facility] 07-20-2022 History of Presen t illness [...] 9:35 AM documented in this encounter [facility] 07-13-2022 Note HNO ID: [id number] Author: Flex Means RN Service: ? Author Type: ? Type: Progress Notes Filed: 07/13/2022 4:39 PM Note Text: pcp agrees with information PATIENT NOTIFIED OF INFORMATION [facility] 07-13-2022 Note HNO ID: [id number] Author: Flex Means RN Service: ? Author [...] 2 week inr follow up inr 07/27/22 [facility] 07-11-2022 Note HNO ID: [id number] Author: Jimbo Carias APRN.AUTOMATION TECH Service: ? Author Type: Nurse Specialist Type: [...] and COPD. HPI excerpted from previous visits: Pricing/Signage Team Member: William GOTTI, aortic stenosis - has 01/2021 appt Intelligence Research Specialist: Julio Medrano / Johanna Benites 6 month follow up with PFT 05/2020 Infectious disease:Ayanna Lai -histoplasmosis on Humira -follow-up in 6 months 09/2019 Mat Machine Tender:: Today reports had toe infection has completely healed. 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 May see an alternate officer captain at [facility]. Weight: stable Exercise: walking miles most days, feeling well with this . 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 Noted macular degeneration, a Raynaud's 2 daily advised 1 year follow-up with eye doctor. Since last seen she has gone to [facility], seen by Dr. Roque Zacarias 06/26/2022 for RA, osteoporosis, degenerative disc disease, arthritis of foot, osteoarthritis of bilateral hands. 3 mo follow up and Dexa advised. Has new shoes from Rani Cowart at [facility] / [employer]. Notes foot surgery and healed foot wound. RA: controlled currently, following with analysis specialist. Last seen by Dr. Ambriz 07/2021 for [...] ALLERGIES Allergen Reactions Penicillins Hives Medications vit A,C,S-Nsie-Dwswbd (OCUVITE PRESERVISION) 2,148 mcg-113 mg-45 mg-17.4mg tabTake [...] fluticasone (FLONASE) 50 mcg/actuation nasal sprayUse 1 Gobles in each nostril once daily.Disp: 3 EachRfl: 3 tiotropium bromide (SPIRIVA RESPIMAT) 2.5 mcg/actuation inhalerInhale 2 Puffs as instructed once daily. Inhale two puffs once daily.Disp: 3 EachRfl: 3 Irbesartan-hydroCHLOROthiazide 150-12.5 mg per tabletTake 1 tablet by mouth once daily.Disp: 90 tabletRfl: 3 SYMBICORT 160-4.5 mcg/actuation inhalerUSE 2 INHALATIONS TWICE A DAY INSTRUCT (more content not included)... [facility] 06-29-2022 Note HNO ID: [id number] Author: Jimbo Carias APRN.AUTOMATION TECH Service: ? Author Type: Nurse Specialist Type: Progress Notes Filed: 06/29/2022 2:16 PM Note Text: Continue with Coumadin dosing unchanged and check INR in 2 weeks [facility] 06-29-2022 History of Presen t illness Narrative Continue with Coumadin dosing unchanged and check INR in 2 weeks patient had inr completed at [facility] patients inr is 2.1 (patients [...] dose change documented in this encounter [facility] 06-29-2022 Note HNO ID: [id number] Author: Flex Means RN Service: ? Author Type: ? Type: Progress Notes Filed: 06/29/2022 2:16 PM Note Text: patient had inr completed at [facility] patients inr is 2.1 (patients [...] the first normal reading since dose change [facility] 06-22-2022 Note HNO ID: [id number] Author: Maritza Preston LPN Service: ? Author Type: ? Type: Progress Notes Filed: 06/22/2022 3:37 PM Note Text: Patient notified of change in dosage, verbalized understanding. Anticoag Tracker updated. Maritza Preston LPN [facility] 06-22-2022 Note HNO ID: [id number] Author: Jimbo Carias APRN.AUTOMATION TECH Service: ? Author Type: Nurse Specialist Type: Progress Notes Filed: 06/22/2022 3:37 PM Note Text: Coumadin 5 mg today and tomorrow then 5 mg Gil Wedsunday and 7.5 mg all other days. Recheck INR in 1 week [facility] 06-22-2022 Note HNO ID: [id number] Author: Flex Means RN Service: ? Author Type: ? Type: Progress Notes Filed: 06/22/2022 3:37 PM Note Text: patient had inr completed at [facility] patients inr is 2.9 (patients [...] 1 week follow up inr on 06/29/22 [facility] 06-09-2022 Note HNO ID: [id number] Author: Flex Means RN Service: ? Author Type: ? Type: Progress Notes Filed: 06/09/2022 4:06 PM Note Text: pcp agrees [facility] 06-09-2022 Note HNO ID: [id number] Author: Flex Means RN Service: ? Author [...] INR since coumadin is just slight under [facility] 05-23-2022 Miscellaneous Notes Noted Message left on [...] rescheduled. Lani from Dr Rani Cowart's office [facility] states they received a signed clearance from [...] is scheduled for surgery tomorrow morning. PH: [phone] X [phone] FAX: [phone]. Maricarmen Jacobs LPN documented in this encounter [facility] 05-04-2022 Note HNO ID: [id number] Author: Jimbo Carias APRN.TYLOR Service: ? Author Type: Nurse Specialist Type: Progress Notes Filed: 05/04/2022 3:52 PM Note Text: Continue Coumadin dose unchanged and check INR in 1 month [facility] 05-04-2022 History of Presen t illness Narrative Continue Coumadin dose unchanged and check INR in 1 month patient had inr completed at [facility] patients inr is 2.0 (patients [...] up INR. documented in this encounter [facility] 05-04-2022 Note HNO ID: [id number] Author: Flex Means RN Service: ? Author Type: ? Type: Progress Notes Filed: 05/04/2022 3:52 PM Note Text: patient had inr completed at [facility] patients inr is 2.0 (patients [...] 1 month (06/08/22) for follow up INR. [facility] 04-06-2022 Note HNO ID: [id number] Author: Jimbo Carias APRN.CNS Service: ? Author Type: Nurse Specialist Type: Progress Notes Filed: 04/06/2022 3:05 PM Note Text: Continue with Coumadin dose unchanged and check INR in 4 weeks [facility] 04-06-2022 History of Presen t illness Narrative Continue with Coumadin dose unchanged and check INR in 4 weeks patient had inr completed at [facility] patients inr is 2.0 (patients [...] up INR. documented in this encounter [facility] 04-06-2022 Note HNO ID: [id number] Author: Flex Means RN Service: ? Author Type: ? Type: Progress Notes Filed: 04/06/2022 3:05 PM Note Text: patient had inr completed at [facility] patients inr is 2.0 (patients [...] 4 weeks (05/04/22) for follow up INR. [facility] 03-30-2022 Note HNO ID: [id number] Author: Flex Means RN Service: ? Author Type: ? Type: Progress Notes Filed: 03/30/2022 3:57 PM Note Text: PATIENT NOTIFIED OF INFORMATION via detailed message [facility] 03-30-2022 History of Presen t illness Narrative [...] on 04/06/22 documented in this encounter [facility] 03-30-2022 Note HNO ID: [id number] Author: Jimbo Carias APRN.CNS Service: ? Author Type: Nurse Specialist Type: Progress Notes Filed: 03/30/2022 3:57 PM Note Text: Coumadin 5 mg today then resume previous dosing -5 mg Sunday and 7.5 mg all other days and check INR in 1 week [facility] 03-30-2022 Note HNO ID: [id number] Author: Flex Means RN Service: ? Author Type: ? Type: Progress Notes Filed: 03/30/2022 3:57 PM Note Text: patient had inr completed at [facility] patients inr is 2.3 (patients [...] 1 week follow up inr on 04/06/22 [facility] 03-13-2022 History of Presen t illness Narrative This note was created using InDMusicriter. Subjective Haydee Bustamante is a 76 year old female. Patient presents with: 4 month follow up SUBJECTIVE: Haydee Bustamante is a 76 year old year old lady here today for 4 month follow up appointment for review of medical conditions. Following with eye doctor. Has early macular degeneration. Given glasses for it. Having foot surgery at [facility] May 19. Told will be extensive--straighten all [...] Anemia Bone marrow involvement with histoplasmosis Bronchiectasis ([facility]) COPD (chronic obstructive pulmonary disease) ([facility]) Disseminated histoplasmosis Colitis, immunosuppression, 01/2018. Diverticulosis of colon (without mention of hemorrhage) Diverticulosis DVT, recurrent, lower extremity, acute ([facility]) 12/10/2014 Esophageal reflux Hiatal hernia 02/25/2018 Hypertension Personal history of unspecified urinary disorder 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 rheumatoid factor ([facility]) 03/07/2015 Dr. Hurley ([facility]) Unspecified hemorrhoids without mention of complication Hemorrhoids Current Outpatient Medications Medication Sig naproxen (NAPROSYN) 500 mg tablet Take 1 tablet by mouth twice daily as needed. Take with food gabapentin (NEURONTIN) 300 mg capsule Take 1 capsule by mouth twice daily. fluticasone (FLONASE) 50 mcg/actuation nasal spray Use 1 Gobles in each nostril once daily. tiotropium bromide [...] factor (HCC) M05.79 5. COPD without exacerbation ([facility]) J44.9 6. Bronchiectasis without complication ([facility]) J47.9 7. 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 Noted that has not needed bridging Lovenox when has been off coumadin. Continue present management with anticoagulation. .BP controlled. Continue present management. Claudine Durán MD documented in this encounter [facility] 02-02-2022 History of Presen t illness Narrative Continue with Coumadin dose unchanged check INR in 4 weeks patient had inr completed at [facility] patients inr is 2.0 (patients [...] up INR. documented in this encounter [facility] 01-17-2022 Miscellaneous Notes Last office visit: 11/10/21 Next appointment scheduled: 03/13/22 Patient phones requesting refills as follows: Requested Prescriptions Pending Prescriptions Disp Refills naproxen (NAPROSYN) 500 mg tablet 120 tablet 3 Sig: Take 1 tablet by mouth twice daily as needed. Take with food Please review and advise. Geni Cintron LPN documented in this encounter [facility] 01-11-2022 Miscellaneous Notes Spoke with pt and information listed below given. Pt verbalizes understanding. She will get the labs when they are due. Lynne Mann LPN Patient gets labs done for analysis specialist so labs are up to date The [...] Mann LPN documented in this encounter [facility] 01-05-2022 History of Presen t illness Narrative per dr haynes he agrees with information patient had inr completed at [facility] patients inr is 2.2 (patients [...] up INR. documented in this encounter [facility] 12-22-2021 History of Presen t illness Narrative PATIENT NOTIFIED OF INFORMATION Recommend Coumadin 7.5 mg today. Then resume usual dosing 5 mg Sunday and 7.5 mg all other days. Check INR 2 weeks patient had inr completed at [facility] patients inr is 1.4 (patients [...] on 01/05/22 documented in this encounter [facility] 11-29-2021 History of Presen t illness Narrative Images from the original note were not included. . Respiratory [place] Note Patient name: Haydee Bustamante PCP: Claudine Durán MD CC: Follow-up lung disease HPI: Haydee Bustamante 76 year old female former [id number] smoker having quit in 1989 with PMH [...] Bronchiectasis (HCC) COPD (chronic obstructive pulmonary disease) ([facility]) Disseminated histoplasmosis Colitis, immunosuppression, 01/2018. Diverticulosis of colon (without mention of hemorrhage) Diverticulosis DVT, recurrent, lower extremity, acute ([facility]) 12/10/2014 Esophageal reflux Hiatal hernia 02/25/2018 Hypertension Personal history of unspecified urinary disorder 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 rheumatoid factor ([facility]) 03/07/2015 Dr. Hurley ([facility]) Unspecified hemorrhoids without mention of complication Hemorrhoids ALLERGIES Allergen Reactions Penicillins Hives fluticasone (FLONASE) 50 mcg/actuation nasal spray^Use 1 Gobles in each nostril once daily.^Disp: 3 Each^Rfl: [...] SPINE FUSN,POST INTERBODY 2012 Dr. Armando at [facility]. Diskectomy and laminectomy PAST SURGICAL [...] treatment per rheumatology Florence Terry MD Res[facility] [place] documented in this encounter [facility] 11-24-2021 Miscellaneous Notes error documented in this encounter [facility] 11-10-2021 History of Presen t illness [...] and COPD. HPI excerpted from previous visit: Pricing/Signage Team Member: William GOTTI, aortic stenosis - has 01/2021 appt Intelligence Research Specialist: Julio Medrano / Johanna Benites 6 month follow up with PFT 05/2020 Infectious disease:Ayanna Lai -histoplasmosis on Humira -follow-up in 6 months 09/2019 Mat Machine Tender:: Today reports had toe infection has completely healed. 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 May see an alternate officer captain at [facility]. States took blood pressure medication today. Continues [...] 12 mos RA: controlled currently, following with analysis specialist. OAC: no bleeding difficulties. Occasional bruising. Spiriva [...] fluticasone (FLONASE) 50 mcg/actuation nasal spray^Use 1 Gobles in each nostril once daily.^Disp: 3 Bottle^Rfl: 3 (Patient not taking: No sig reported) PAST MEDICAL HISTORY Diagnosis Date Blood dyscrasia Disseminated histoplasmosis Colitis, immunosuppression, 01/2018. Diverticulosis of colon (without mention of hemorrhage) Diverticulosis DVT, recurrent, lower extremity, acute ([facility]) 12/10/2014 Esophageal reflux Hiatal hernia 02/25/2018 Hypertension Personal history of unspecified urinary disorder 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 rheumatoid factor ([facility]) 03/07/2015 Dr. Hurley ([facility]) Unspecified hemorrhoids without mention of complication Hemorrhoids [...] Abs Lymph 1.00 - 4.00 k/uL 1.64 [place]% % 8.0 Abs [place] <0.87 k/uL 0.60 [place]% % 2.7 Abs [...] (HCC) - ICD9: 496, ICD10: J44.9 - UPUKA-0-EAZLREWYM BL 3. Encounter for immunization - ICD9: V03.89, ICD10: Z23 - [employer] COVID-19 BIVALENT BOOSTER VACCINE, AGE 12+ YR - INFLUENZA SEASONAL QUADRIVALENT HIGH DOSE AGE 65+ 4. Gastroesophageal reflux disease without esophagitis - ICD9: 530.81, ICD10: K21.9 5. Bronchiectasis without complication (HCC) - ICD9: 494.0, ICD10: J47.9 6. COPD without exacerbation (HCC) - ICD9: 496, ICD10: J44.9 7. Aortic stenosis with bicuspid valve - ICD9: 746.3, 746.4, ICD10: Q23.0, Q23.1 Jimbo Carias APRN.AUTOMATION TECH] Jimbo Carias APRN.CNS Medical Decision Making: Problems: Moderate: 1+ chronic illnesses with change and 2+ stable chronic illnesses Risk: Moderate: Drug management Medical Decision Making Level: 4 - Moderate documented in this encounter [facility] 11-09-2021 Miscellaneous Notes Filed order patients orders for coumadin clinic inr's has at this time. new order has been pended for approval if possible so that patient can continue to get inr's completed thru the coumadin clinic. coumadin clinic nurse only needs called if order can not be approved. documented in this encounter [facility] 11-08-2021 Miscellaneous Notes Patient has been [...] Tobin RN documented in this encounter [facility] 11-01-2021 Instructions Yonas Louise - 11/01/2021 9:29 AM EDT Your ulceration is now healed Ok to continue with padding as needed F/u as needed documented in this encounter [facility] 11-01-2021 History of Presen t illness [...] positive rheumatoid factor (HCC) 03/07/2015 Dr. Hurley ([facility]) Unspecified hemorrhoids without mention of complication Hemorrhoids [...] (FLONASE) 50 mcg/actuation nasal spray Use 1 Gobles in each nostril once daily. (Patient not [...] SPINE FUSN,POST INTERBODY 2012 Dr. Armando at [facility]. Diskectomy and laminectomy PAST SURGICAL [...] wrapping it. documented in this encounter [facility] 10-27-2021 History of Presen t illness Narrative patient had inr completed at [facility] patients inr is 1.6 (patients [...] up INR. documented in this encounter [facility] 10-18-2021 Instructions Yonas Louise - 10/18/2021 9:[address] aquacel on ulceration daily Place lambs wool or guaze horizontally between the interspace Secure lambs wool or guaze with blanca wrap or tape Wear surgical shoe or wide sneaker or even sandal to avoid pressure on 5th toe documented in this encounter [facility] 10-18-2021 History of Presen t illness [...] hemorrhage) Diverticulosis DVT, recurrent, lower extremity, acute ([facility]) 12/10/2014 Esophageal reflux Hiatal hernia 02/25/2018 Hypertension Personal history of unspecified urinary disorder 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 rheumatoid factor ([facility]) 03/07/2015 Dr[facility] Health) Unspecified hemorrhoids without mention of complication Hemorrhoids [...] (FLONASE) 50 mcg/actuation nasal spray Use 1 Gobles in each nostril once daily. (Patient not [...] SPINE FUSN,POST INTERBODY 2011 Dr. Armando at [facility]. Diskectomy and laminectomy PAST SURGICAL [...] thickness Yonas Louise DPM Podiatry [address] [facility] [address] Dept: [phone] Dept AMB ROOMING INTAKE FLOWSHEET DATA Pain Pain Level: 4 Pain Location: Toe Description: Sharp, Raw, Sore Duration Amount of Time: 2 Duration Units: Months Frequency: Intermittent Intervention/Comfort measure: Reposition, Relaxation Patient presents with: Right Foot - Established Patient, Follow Up, Pain, Blister Imelda Quijano LPN documented in this encounter [facility] 10-18-2021 Miscellaneous Notes Pt only has [...] Porter RN documented in this encounter [facility] 10-12-2021 History of Presen t illness [...] 10:06 AM documented in this encounter [facility] 10-12-2021 History of Presen t illness [...] 9:56 AM documented in this encounter [facility] 09-29-2021 History of Presen t illness Narrative Continue current Coumadin dose unchanged and check INR in 4 weeks patient had inr completed at [facility] patients inr is 2.0 (patients [...] up INR. documented in this encounter [facility] 09-20-2021 Instructions Jimbo Carias APRN.CNS - 09/20/2021 1:55 PM EDT Keep your toe clean dry and . Was with soap and water daily, dry thoroughly. Use lambswool between toes. Avoid tight shoes documented in this encounter [facility] 09-20-2021 History of Presen t illness [...] and COPD. HPI excerpted from previous visit: Pricing/Signage Team Member: William GOTTI, aortic stenosis - has 01/2021 appt Intelligence Research Specialist: Julio Medrano / Johanna Benites 6 month follow up with PFT 05/2020 Infectious disease:Ayanna Lai -histoplasmosis on Humira -follow-up in 6 months 09/2019 Mat Machine Tender:: Home blood pressure and heart rate: no [...] 12 mos RA: controlled currently, following with analysis specialist. Histoplasmosis: notes resolved symptoms. OAC: no bleeding difficulties. Occasional bruising. Spiriva and intermittent albuterol has helped with cough. Presents today for foot lesion. She notes she is been wearing tight shoes for a [employer] production at [facility] for about a month. She notes that [...] (FLONASE) 50 mcg/actuation nasal spray Use 1 Gobles in each nostril once daily. econazole (SPECTAZOLE) [...] positive rheumatoid factor (HCC) 03/07/2015 Dr. Hurley ([facility]) Unspecified hemorrhoids without mention of complication Hemorrhoids [...] Abs Lymph 1.00 - 4.00 k/uL 1.64 [place]% % 8.0 Abs [place] <0.87 k/uL 0.60 Eosin% % 2.7 Abs [...] - Low documented in this encounter [facility] 09-05-2021 Miscellaneous Notes September 05, 2021 PID: [id number] Haydee Bustamante [address] [place] [address] Dear Ms. Bustamante, Your recent breast imaging exam on 09/05/2021 showed a possible finding that requires additional imaging studies for a complete evaluation. Most such findings are probably benign (not cancer). If you have a healthcare provider who ordered/prescribed your screening mammogram: Please call [phone] or [phone]: [phone] to schedule an appointment for your additional [...] reports are kept on file at [facility] as part of your permanent medical record, and are available for your continuing care. Thank you for allowing us to help in meeting your health care needs. Sincerely, Dr. Bell Interpreting Radiologist [facility] (Additional imaging) documented in this encounter [facility] 09-05-2021 History of Presen t illness [...] DATA: Not applicable SIGNED BY: Emi Gloria [employer] September 05, 2021 9:28 AM documented in this encounter [facility] 08-23-2021 History of Presen t illness Narrative per verbal order by financial services consultant provider dr rowell she agrees with information patient had inr completed at [facility] patients inr is 2.2 (patients [...] up INR. documented in this encounter [facility] 08-12-2021 History of Presen t illness Narrative Images from the original note were not included. [facility] SECTION OF [facility] OUTPATIENT VISIT DATE August 12, 2021 PRIMARY CARE PHYSICIAN: Claudine Durán [address] [place] [address] HISTORY OF PRESENT ILLNESS: Ms. Bustamante is a 76 year old female. The patient returns for follow-up due to history of known bicuspid aortic valve stenosis. Previous stenosis has been evaluation as showed this to be mild. Additional history includes hypertension. 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 She is planning on doing [employer] again this summer. She denies chest discomfort, [...] positive rheumatoid factor (HCC) 03/07/2015 Dr. Hurley ([facility]) Unspecified hemorrhoids without mention of complication Hemorrhoids [...] SPINE FUSN,POST INTERBODY 2011 Dr. Armando at [facility]. Diskectomy and laminectomy PAST SURGICAL [...] (FLONASE) 50 mcg/actuation nasal spray Use 1 Gobles in each nostril once daily. econazole (SPECTAZOLE) [...] Department of Medicine and Division of Cardiology, [facility] Behavioral Therapisttruck rental clerk [facility] Behavioral Therapist of Congestive Heart Failure Clinic [facility] Cardiology Office Behavioral Therapist [facility] Staff Pricing/Signage Team Member, [place] and Edilma Pierce Department of Cardiovascular Medicine/Heart and Vascular [place], [facility] Clinical Director Of Restaurants Profressor of Medicine, [facility] Please note: This note has been produced using speech recognition software and may contain errors related to that system including madelyn, punctuation, spelling, words, gender and phrases that may be inappropriate. documented in this encounter [facility] 07-29-2021 Miscellaneous Notes Pharmacy faxed requesting the following refill. Pending Prescriptions Disp Refills SYMBICORT 160 MCG-4.5 MCG/ACTUATION HFA AEROSOL INHALER 30.6 g 4 Sig: USE 2 INHALATIONS TWICE A DAY INSTRUCTED YULIANA: Yes Patient last appointment: [address] [place] [address] Andujar Patient Phone numbers: [phone] (home) Request is for script(s) to be escript to pharmacy. Nahomy Mercado documented in this encounter [facility] 07-25-2021 History of Presen t illness Narrative pcp agrees with information patient had inr completed at [facility] patients inr is 1.8 (patients [...] up INR. documented in this encounter [facility] 07-11-2021 History of Presen t illness Narrative This note was created using [employer]. Subjective Haydee Bustamante is a 76 year [...] toe surgery for now--has show. 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 Noted fell when missed top step. [...] positive rheumatoid factor (HCC) 03/07/2015 Dr. Hurley ([facility]) Unspecified hemorrhoids without mention of complication Hemorrhoids [...] (FLONASE) 50 mcg/actuation nasal spray Use 1 Gobles in each nostril once daily. econazole (SPECTAZOLE) [...] Abs Lymph 1.00 - 4.00 k/uL 1.64 [place]% % 8.0 Abs [place] <0.87 k/uL 0.60 Eosin% % 2.7 Abs [...] vaccine - ICD9: V04.89, ICD10: Z23 - [employer]l COVID-19 VACCINE, AGE 12+ YR (ARIAS TOP) 6. COPD without exacerbation (HCC) - ICD9: 496, ICD10: J44.9 Continue present management. Discussed Dr. Andujar's instructions to use albuterol before activity that causes coughing 7. Bronchiectasis without complication (HCC) - ICD9: 494.0, ICD10: J47.9 As noted above. Fall discussed. Arthritis discussed. Claudine Durán MD documented in this encounter [facility] 06-30-2021 History of Presen t illness Narrative inSight CDM Engagement Provider Action/FYI: Spk with Pt she denies new or worsening COPD symptoms or needs. Pt plans to have her Covid Booster at upcoming Appt with 07/11/21 Contact Made with Patient: Yes Patient identified by name and . Discussed care with patient Shante venegas name is Katarzyna Malcolm RN your Attorney At Law from Claudine Durán MD office at the [facility]. I am reaching out today because [...] Bustamante. This is Katarzyna Malcolm RN your Attorney At Law from the [facility]. I am calling to check in with you concerning the MyChart questionnaire you have been receiving from me. I will call you again tomorrow and am looking forward to speaking with you. (Attorney At Law enters next day in next patient outreach ) Katarzyna Malcolm RN June 29, 2021 3:31 PM documented in this encounter [facility] 06-09-2021 History of Presen t illness Narrative per financial services consultant provider dr garza patient is to continue same dose PATIENT NOTIFIED OF INFORMATION patient had inr completed at [facility] patients inr is 1.6 (patients [...] up INR. documented in this encounter [facility] 06-06-2021 Miscellaneous Notes GEREMIAS: 03/14/2021 Last refill: 05/12/2019 QTY: 1 Refills: 2 Patient's request for medication is as follows: Pending Prescriptions Disp Refills ALBUTEROL SULFATE HFA 90 MCG/ACTUATION AEROSOL INHALER 1 Inhaler 2 Sig: Inhale 2 Puffs as instructed every 4 hours as needed. YULIANA: No Please approve the above prescription(s) to electronically send to pharmacy. eSrgey Ramirez Ma documented in this encounter [facility] 2021 Instructions Julio Andujar MD - [...] am retiring from the staff of [facility] and the practice of Medicine on [...] Benites PA-C. documented in this encounter [facility] 2021 History of Presen t illness Narrative [facility] Respiratory [place], 2021: Name: Haydee Bustamante : 1945 INTERVAL [...] months, sooner if needed. Julio Andujar MD, [facility] Respiratory [place] [facility] [address] [place] [id number] P: [phone] F: [phone] [email or web address] documented in this encounter [facility] 05-26-2021 History of Presen t illness Narrative financial services consultant provider agrees with information patient had inr completed at [facility] patients inr is 1.6 (patients [...] slightly low documented in this encounter [facility] 05-20-2021 History of Presen t illness [...] 2:45 PM documented in this encounter [facility] 03-14-2021 History of Presen t illness Narrative This note was created using [employer]. Subjective Haydee Bustamante is a 75 year [...] positive rheumatoid factor (HCC) 03/07/2015 Dr. Hurley ([facility]) Unspecified hemorrhoids without mention of complication Hemorrhoids [...] (FLONASE) 50 mcg/actuation nasal spray Use 1 Gobles in each nostril once daily. potassium chloride [...] good control - Follows with Dr. Ambriz ([facility] cardiology) - Continue current medication(s) - [...] 714.0, ICD10: M05.79 Stable on meds through [facility]--Dr. Hurley Gets labs through his office. Lipid ordered. I spent a total of at least 30 minutes on the date of the service which included [id number] patient care, completing clinical documentation, obtaining and/or reviewing separately obtained history, performing a medically appropriate examination, counseling and educating the patient/family/caregiver and ordering medications, tests, or procedures. Claudine Durán MD documented in this encounter [facility] documented as of this encounter (statuses as of 05/20/2021) [facility] History of Past illness Narrative* Problem [...] this encounter (statuses as of 05/22/2021) [facility] Narrative* Problem [...] this encounter (statuses as of 05/26/2021) [facility] Narrative* Problem [...] this encounter (statuses as of 06/06/2021) [facility] Narrative* Problem [...] this encounter (statuses as of 06/09/2021) [facility] Narrative* Problem [...] this encounter (statuses as of 06/30/2021) [facility] Narrative* Problem [...] this encounter (statuses as of 07/25/2021) [facility] Narrative* Problem [...] this encounter (statuses as of 08/01/2021) [facility] N[facility]ative* Problem [...] this encounter (statuses as of 08/12/2021) [facility] Narrative* Problem [...] this encounter (statuses as of 08/23/2021) [facility] Narrative* Problem [...] this encounter (statuses as of 09/06/2021) [facility] Narrative* Problem [...] this encounter (statuses as of 09/06/2021) [facility] Narrative* Problem [...] this encounter (statuses as of 09/07/2021) [facility] Narrative* Problem [...] this encounter (statuses as of 09/20/2021) [facility] Narrative* Problem [...] this encounter (statuses as of 09/29/2021) [facility] N[facility]ative* Problem [...] this encounter (statuses as of 10/13/2021) [facility] N[facility]ative* Problem [...] this encounter (statuses as of 10/13/2021) [facility] N[facility]ative* Problem [...] this encounter (statuses as of 10/18/2021) [facility] N[facility]ative* Problem [...] this encounter (statuses as of 10/18/2021) [facility] N[facility]ative* Problem [...] this encounter (statuses as of 10/19/2021) [facility] Narrative* Problem [...] this encounter (statuses as of 10/27/2021) [facility] N[facility]ative* Problem [...] this encounter (statuses as of 11/01/2021) [facility] N[facility]* Problem [...] this encounter (statuses as of 11/08/2021) [facility] N[facility]ative* Problem [...] this encounter (statuses as of 11/10/2021) [facility] N[facility]ative* Problem [...] this encounter (statuses as of 11/10/2021) [facility] N[facility]* Problem [...] this encounter (statuses as of 11/29/2021) [facility]* Problem [...] this encounter (statuses as of 12/04/2021) [facility] Narrative* Problem [...] this encounter (statuses as of 12/22/2021) [facility] N[facility]ative* Problem [...] this encounter (statuses as of 12/27/2021) [facility]ative* Problem [...] this encounter (statuses as of 01/05/2022) [facility]* Problem [...] this encounter (statuses as of 01/11/2022) [facility] N[facility]* Problem [...] this encounter (statuses as of 01/17/2022) [facility] N[facility]* Problem [...] this encounter (statuses as of 01/17/2022) [facility]* Problem [...] this encounter (statuses as of 02/02/2022) [facility] Narrative* Problem [...] this encounter (statuses as of 02/22/2022) [facility] Narrative* Problem [...] this encounter (statuses as of 02/24/2022) [facility] Narrative* Problem [...] this encounter (statuses as of 03/14/2022) [facility] Narrative* Problem [...] this encounter (statuses as of 03/30/2022) [facility] Narrative* Problem [...] this encounter (statuses as of 04/06/2022) [facility] N[facility]ative* Problem [...] this encounter (statuses as of 04/21/2022) [facility] N[facility]ative* Problem [...] this encounter (statuses as of 05/04/2022) [facility]* Problem [...] this encounter (statuses as of 05/24/2022) [facility]* Problem [...] this encounter (statuses as of 06/01/2022) [facility]* Problem [...] this encounter (statuses as of 06/29/2022) [facility]* Problem [...] this encounter (statuses as of 07/24/2022) [facility]* Problem [...] this encounter (statuses as of 07/24/2022) [facility]* Problem [...] this encounter (statuses as of 08/13/2022) [facility]* Problem [...] this encounter (statuses as of 08/15/2022) [facility]* Problem [...] this encounter (statuses as of 09/08/2022) [facility]* Problem [...] this encounter (statuses as of 09/11/2022) [facility]* Problem [...] this encounter (statuses as of 09/15/2022) [facility]* Problem [...] this encounter (statuses as of 09/26/2022) [facility]* Problem [...] this encounter (statuses as of 10/10/2022) [facility]* Problem [...] this encounter (statuses as of 10/13/2022) [facility]* Problem [...] this encounter (statuses as of 10/27/2022) [facility]* Problem [...] this encounter (statuses as of 10/27/2022) [facility]* Problem [...] this encounter (statuses as of 10/31/2022) [facility]* Problem [...] this encounter (statuses as of 10/31/2022) [facility]* Problem [...] this encounter (statuses as of 11/02/2022) [facility]* Problem [...] this encounter (statuses as of 11/10/2022) [facility]* Problem [...] this encounter (statuses as of 11/23/2022) [facility]ative* Problem [...] this encounter (statuses as of 12/07/2022) [facility]* Problem [...] this encounter (statuses as of 12/07/2022) [facility]* Problem [...] this encounter (statuses as of 12/15/2022) [facility]* Problem [...] this encounter (statuses as of 12/20/2022) [facility]* Problem [...] this encounter (statuses as of 12/24/2022) [facility]* Problem [...] this encounter (statuses as of 12/24/2022) [facility]* Problem [...] this encounter (statuses as of 01/04/2023) [facility]* Problem [...] this encounter (statuses as of 01/05/2023) [facility]* Problem [...] this encounter (statuses as of 01/10/2023) [facility]* Problem [...] this encounter (statuses as of 01/18/2023) [facility]* Problem [...] this encounter (statuses as of 01/24/2023) [facility]* Problem [...] this encounter (statuses as of 02/03/2023) [facility]* Problem [...] this encounter (statuses as of 02/08/2023) [facility]* Problem [...] of this encounter (statuses as of 03/24/2023) [facility]* Problem [...] of this encounter (statuses as of 03/27/2023) [facility] Diagnosis Screening mammogram, encounter for- Primary [facility] Diagnosis Essential hypertension- Primary Unspecified essential hypertension History of COVID-19 Cough Bronchiectasis without complication (HCC) Bronchiectasis without acute exacerbation Gastroesophageal reflux disease without esophagitis Esophageal reflux Aortic stenosis with bicuspid valve 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 rheumatoid factor (HCC) [facility] Diagnosis Embolism and thrombosis (HCC) Embolism and thrombosis of unspecified site [facility] Diagnosis Moderate COPD (chronic obstructive pulmonary disease) (HCC)- Primary Chronic airway obstruction, not elsewhere classified Bronchiectasis without complication (HCC) Bronchiectasis without acute exacerbation Centrilobular emphysema (HCC) Other emphysema [facility] Diagnosis Cough due to bronchospasm Acute bronchospasm [facility] Diagnosis Embolism and thrombosis (HCC) Embolism and thrombosis of unspecified site [facility] Diagnosis Personal history of DVT (deep vein thrombosis)- Primary Personal history of venous thrombosis and embolism [facility] Diagnosis Aortic stenosis with bicuspid valve- Primary Essential hypertension Unspecified essential hypertension [facility] Diagnosis Personal history of DVT (deep vein thrombosis)- Primary Personal history of venous thrombosis and embolism [facility] Diagnosis Encounter for screening mammogram for breast cancer [facility] Diagnosis Gastroesophageal reflux disease without esophagitis- Primary Esophageal reflux Other viral warts Elevated LDL cholesterol level Pure hypercholesterolemia Essential hypertension Unspecified essential hypertension Need for COVID-19 vaccine COPD without exacerbation (HCC) Bronchiectasis without complication (HCC) Bronchiectasis without acute exacerbation [facility] Diagnosis Toe infection- Primary Unspecified local infection of skin and subcutaneous tissue Sinobronchitis Unspecified sinusitis (chronic) [facility] Diagnosis Personal history of DVT (deep vein thrombosis)- Primary Personal history of venous thrombosis and embolism [facility] Diagnosis Abnormal mammogram Abnormal mammogram, unspecified [facility] Diagnosis Ulcer of toe of left foot, limited to breakdown of skin (HCC)- Primary Hammer toe of left foot Onychodystrophy Other specified disease of nail [facility]* Diagnosis Embolism and thrombosis (HCC) Embolism and thrombosis of unspecified site [facility] Ulcer of toe of left foot, limited to breakdown of skin (HCC) Hammer toe of left foot [facility] Diagnosis Ulcer of toe of left foot, limited to breakdown of skin (HCC)- Primary Hammer toe of left foot Hallux rigidus of left foot Hallux rigidus [facility]* Diagnosis COPD without exacerbation (HCC) Essential hypertension Unspecified essential hypertension [facility]* Diagnosis Essential hypertension- Primary Unspecified essential hypertension Chronic obstructive pulmonary disease, unspecified COPD type (HCC) Encounter for immunization Need for other specified prophylactic vaccination against single bacterial disease Gastroesophageal reflux disease without esophagitis Esophageal reflux Bronchiectasis without complication (HCC) Bronchiectasis without acute exacerbation Aortic stenosis with bicuspid valve [facility] Diagnosis Lung nodules- Primary Other nonspecific abnormal finding of lung field Bronchiectasis without complication (HCC) Bronchiectasis without acute exacerbation Chronic obstructive pulmonary disease, unspecified COPD type (HCC) 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 rheumatoid factor (HCC) documented [facility]* Diagnosis Personal history of DVT (deep vein thrombosis)- Primary Personal history of venous thrombosis and embolism [facility]* Diagnosis 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 rheumatoid factor (HCC) Low back pain with right-sided sciatica, unspecified back pain laterality, unspecified chronicity [facility]* Diagnosis 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 rheumatoid factor (HCC) Low back pain with right-sided sciatica, unspecified back pain laterality, unspecified chronicity Pseudogout Other disorder of calcium metabolism [facility] Diagnosis Personal history of DVT (deep vein thrombosis)- Primary Personal history of venous thrombosis and embolism [facility]* Diagnosis Essential hypertension- Primary Unspecified essential hypertension Chronic anticoagulation Long-term (current) use of 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 Aortic stenosis with bicuspid valve 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 rheumatoid factor (HCC) COPD without exacerbation (HCC) Bronchiectasis without complication (HCC) Bronchiectasis without acute exacerbation Acquired hammertoe of left foot Early dry stage nonexudative age-related macular degeneration of both eyes documented [facility]* Diagnosis Personal history of DVT (deep vein thrombosis)- Primary Personal history of venous thrombosis and embolism [facility]* Diagnosis Personal history of DVT (deep [...] of calcium metabolism [facility] Diagnosis skilled nursing current use of anticoagulant therapy- Primary Long-term (current) use of 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 [facility] Diagnosis Essential hypertension- Primary Unspecified [...] fracture Senile osteoporosis [facility]* Diagnosis Embolism and thrombosis (HCC)- Primary Embolism and thrombosis of unspecified site [facility]* Diagnosis 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 rheumatoid factor (HCC) Low back pain with right-sided sciatica, unspecified back pain laterality, unspecified chronicity documented [facility]* Diagnosis Lung nodules Other nonspecific abnormal finding of lung field documented [facility]* Diagnosis Encounter for screening mammogram for breast cancer documented [facility]* Diagnosis Encounter for immunization- Primary Need for other specified prophylactic vaccination against single bacterial disease [facility] Diagnosis Embolism and thrombosis (HCC)- Primary Embolism and thrombosis of unspecified site [facility]* Diagnosis Personal history of DVT (deep vein thrombosis)- Primary Personal history of venous thrombosis and embolism [facility]* Diagnosis Acute cough- Primary [facility] Outpatient Procedure (Routine) - Authorized Specialty Diagnoses / Procedures Referred By Divya reis Referred To Contact [facility] [place] [facility] [place] Diagnoses Aortic stenosis with bicuspid valve Essential hypertension Procedures ECHO ECHO TTHRC R-T 2D W/WOM-MODE COMPL SPEC&COLR D William Ambriz DO [address] [place] [address] [facility] [place] [address] Referral ID Status Reason Start Date Expiration Date Visits Requested Visits Authorized [id number] Authorized Auto-Generat ed Referral 08/12/2021 08/12/2022 1 1 * Outpatient Procedure (Routine) - Closed Specialty Diagnoses / Procedures Referred By Contfabian reis Referred To Contact [facility] [place] [facility] [place] Diagnoses Aortic stenosis with bicuspid valve Essential hypertension Procedures ECG COMPLETE ECG ROUTINE ECG W/LEAST 12 LDS W/I&R William Ambriz DO [address] [place] [address] [facility] [place] [address] [place] [address] Referral ID Status Reason Start Date Expiration Date V isits Requested Visits Authorized [id number] Closed Auto-Generate d Referral 08/12/2021 08/12/2022 1 1 [facility] for referral (narrative)* Diagnostic Procedure Only (Routine) - Closed Specialty Diagnoses / Procedures Referred By Contac t Referred To Contact XR IMAGING Diagnoses Ulcer of toe of left foot, limited to breakdown of skin (HCC) Hammer toe of left foot Procedures XR FOOT GENERAL 3V AP/LAT/OBL LEFT RADEX FOOT COMPLETE MINIMUM 3 VIEWS Yonas Louise [address] [place] [address] Xr Imaging Referral ID Status Reason Start Date Expiration Date V isits Requested Visits Authorized [id number] Closed Auto-Generate d Referral 10/18/2021 11/17/2022 1 1 T [facility] for referral (narrative)* Diagnostic Procedure Only (Routine) - Closed Specialty Diagnoses / Procedures Referred By Contac t Referred To Contact XR IMAGING Diagnoses Ulcer of toe of left foot, limited to breakdown of skin (HCC) Hammer toe of left foot Procedures XR FOOT GENERAL 3V AP/LAT/OBL LEFT RADEX FOOT COMPLETE MINIMUM 3 VIEWS Yonas [address] [place] [address] Xr Imaging Referral ID Status Reason Start Date Expiration Date V isits Requested Visits Authorized [id number] Closed Auto-Generate d Referral 10/18/2021 11/17/2022 1 1 T [facility] for referral (narrative)* Outpatient Procedure (Routine) - Authorized Specialty Diagnoses / Procedures Referred By Contac t Referred To [facility] Diagnoses Aortic stenosis with bicuspid valve Procedures ECHO ECHO TTHRC R-T 2D W/WOM-MODE COMPL SPEC&COLR Rachelle Wilcox APRN.WINDER HELPER [address] [address] [facility] [place] [address] [place] [address] Referral ID Status Reason Start Date Expiration Date Visits Requested Visits Authorized [id number] Authorized Auto-Generat ed Referral 08/29/2022 08/29/2023 1 1 [facility] for referral (narrative)* Diagnostic Procedure Only (Routine) - Authorized Specialty Diagnoses / Procedures Referred By Divya reis Referred To Contact BR IMAGING Diagnoses Encounter for screening mammogram for breast cancer Procedures SABINO SCREENING W ALIZE SCREENING DIGITAL BREAST TOMOSYNTHESIS BI SCREENING MAMMOGRAPHY BI 2-[facility] Jimbo Carias APRN.AUTOMATION TECH [address] [place] [address] [facility] [address] [place] [address] Referral ID Status Reason Start Date Expiration Date Visits Requested Visits Authorized [id number] Authorized Auto-Generat ed Referral 10/27/2022 11/26/2023 1 1 * Diagnostic Procedure Only (Routine) - Pending Review Specialty Diagnoses / Procedures Referred By Divya reis Referred To Contact BR IMAGING Diagnoses Encounter for screening mammogram for breast cancer Procedures SABINO SCREENING SCREENING MAMMOGRAPHY BI 2-[facility] Jimbo Carias APRN.AUTOMATION TECH [address] [place] [address] [facility] [address] [place] [address] Referral ID Status Reason Start Date Expiration Date Visits Requested Visits Authorized [id number] Pending Review Auto-Generat ed Referral 10/27/2022 11/26/2023 1 1 [facility] for referral (narrative)* Diagnostic Procedure Only (Routine) - Closed Specialty Diagnoses / Procedures Referred By Divya t Referred To Contact BR IMAGING Diagnoses Encounter for screening mammogram for breast cancer Procedures SABINO SCREENING W ALIZE SCREENING DIGITAL BREAST TOMOSYNTHESIS BI SCREENING MAMMOGRAPHY BI 2-VIEW BREAST INC CAD Jimbo Carias APRN.AUTOMATION TECH [address] [place] [address] [facility] [address] [place] [address] Referral ID Status Reason Start Date Expiration Date V isits Requested Visits Authorized [id number] Closed Auto-Generate d Referral 10/27/2022 11/26/2023 1 1 [facility] for visit Narrative* Diagnostic Procedure Only (Routine) - Closed Specialty Diagnoses / Procedures Referred By Divya reis Referred To Contact XR IMAGING Diagnoses Ulcer of toe of left foot, limited to breakdown of skin (HCC) Hammer toe of left foot Procedures XR FOOT GENERAL 3V AP/LAT/OBL LEFT RADEX FOOT COMPLETE MINIMUM 3 VIEWS Yonas Louise [address] [place] [address] Xr Imaging Referral ID Status Reason Start Date Expiration Date V isits Requested Visits Authorized [id number] Closed Auto-Generate d Referral 10/18/2021 11/17/2022 1 1 [facility] for visit Narrative* Diagnostic Procedure Only (Routine) - Closed Specialty Diagnoses / Procedures Referred By Divya t Referred To Contact [facility] Diagnoses Encounter for screening mammogram for breast cancer Procedures SABINO SCREENING W ALIZE SCREENING DIGITAL BREAST TOMOSYNTHESIS BI SCREENING MAMMOGRAPHY BI 2-VIEW BREAST INC [facility] Jimbo Carias APRN.AUTOMATION TECH [address] [place] [address] [facility] [address] [place] [address] Referral ID Status Reason Start Date Expiration Date V isits Requested Visits Authorized [id number] Closed Auto-Generate d Referral 10/27/2022 11/26/2023 1 1 [facility] Summary Purpose Family History No Family History Records FoundNo Family History Records FoundNo Family History Records FoundNo Family History Records FoundNo Family History Records Found Advance Directives No Advanced Directives Records FoundDocuments on File Type Date Recorded 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 Advance Directive(s) 02/25/2018 1:19 PM Latest Code Status on File Code Status Date Activated Date Inactivated Comments Full Code 03/02/2018 6:22 PM 03/03/2018 4:33 PM Full Code Order Discussed With: Patient Documents on File Type Date Recorded 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 Advance Directive(s) 03/24/2019 12:16 PM Advance Directive(s) 03/02/2018 11:28 AM Advance Directive(s) 02/25/2018 1:11 PM Advance Directive(s) 02/25/2018 1:19 PM Advance Directive(s) 01/25/2018 9:15 AM Advance Directive(s) 07/30/2017 2:22 PM Documents on File Type Date Recorded 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 Advance Directive(s) 03/24/2019 12:16 PM Advance Directive(s) 03/02/2018 11:28 AM Advance Directive(s) 02/25/2018 1:11 PM Advance Directive(s) 02/25/2018 1:19 PM Advance Directive(s) 01/25/2018 9:15 AM Advance Directive(s) 07/30/2017 2:22 PM Latest Code Status on File Code Status Date Activated Date Inactivated Comments Full Code 03/02/2018 6:22 PM 03/03/2018 4:33 PM Documents on File Type Date Recorded 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 Advance Directive(s) 02/25/2018 1:19 PM [...] Florence Duncan MD [address] [place] [address] Ct Imaging Referral ID Status Reason Start Date Expiration Date Visits Requested Visits Authorized [id number] Authorized Auto-Generat ed Referral 12/29/2022 1 1 Specialty Diagnoses / Procedures Referred By Contac t Referred To Contact CT IMAGING Diagnoses Lung nodules Bronchiectasis without complication (HCC) Procedures CT CHEST WO IVCON DIAGNOSTIC COMPUTED TOMOGRAPHY THORAX W/O Florence Duncan MD [address] [place] [address] Ct Imaging Referral ID Status Reason Start Date Expiration Date Visits Requested Visits Authorized [id number] Authorized Auto-Generat ed Referral 01/23/2023 08/23/2023 1 1 Specialty Diagnoses / Procedures Referred By Contac t Referred To Contact CT IMAGING Diagnoses Lung nodules Procedures CT CHEST WO IVCON DIAGNOSTIC COMPUTED TOMOGRAPHY THORAX W/O Florence Duncan MD [address] [place] [address] [place] [address] Referral ID Status Reason Start Date Expiration Date V isits Requested Visits Authorized [id number] Closed Auto-Generate d Referral 11/29/2021 12/29/2022 1 [...] DATE CREATED AUTHOR AUTHOR'S ORGANIZ ATION 03/10/2018 [facility] DATE CREATED AUTHOR AUTHOR'S ORGANIZ ATION 05/29/2020 [facility] DATE CREATED AUTHOR AUTHOR'S ORGANIZ ATION 03/18/2023 [facility] DATE CREATED AUTHOR AUTHOR'S ORGANIZ ATION 03/30/2023 [facility] Source Comments (unrecognize d section and content) In the event this informatio n is protected by the Federal Confidentiality of Alcohol and Drug Abuse Patient Records regulations: The Federal rules restrict any use of the information to criminally investigate or prosecute any alcohol or drug abuse patient.[facility] event this information is protected by the Federal Confidentiality of Alcohol and Drug Abuse Patient Records regulations: The Federal rules restrict any use of the information to criminally investigate or prosecute any alcohol or drug abuse patient.[facility] the event this information is protected by the Federal Confidentiality of Alcohol and Drug Abuse Patient Records regulations: The Federal rules restrict any use of the information to criminally investigate or prosecute any alcohol or drug abuse patient.[facility] the event this information is protected by the Federal Confidentiality of Alcohol and Drug Abuse Patient Records regulations: The Federal rules restrict any use of the information to criminally investigate or prosecute any alcohol or drug abuse patient.[facility] the event this information is protected by the Federal Confidentiality of Alcohol and Drug Abuse Patient Records regulations: The Federal rules restrict any use of the information to criminally investigate or prosecute any alcohol or drug abuse patient.[facility] the event this information is protected by the Federal Confidentiality of Alcohol and Drug Abuse Patient Records regulations: The Federal rules restrict any use of the information to criminally investigate or prosecute any alcohol or drug abuse patient.[facility] the event this information is protected by the Federal Confidentiality of Alcohol and Drug Abuse Patient Records regulations: The Federal rules restrict any use of the information to criminally investigate or prosecute any alcohol or drug abuse patient.[facility] the event this information is protected by the Federal Confidentiality of Alcohol and Drug Abuse Patient Records regulations: The Federal rules restrict any use of the information to criminally investigate or prosecute any alcohol or drug abuse patient.[facility] the event this information is protected by the Federal Confidentiality of Alcohol and Drug Abuse Patient Records regulations: The Federal rules restrict any use of the information to criminally investigate or prosecute any alcohol or drug abuse patient.[facility] the event this information is protected by the Federal Confidentiality of Alcohol and Drug Abuse Patient Records regulations: The Federal rules restrict any use of the information to criminally investigate or prosecute any alcohol or drug abuse patient.[facility] the event this information is protected by the Federal Confidentiality of Alcohol and Drug Abuse Patient Records regulations: The Federal rules restrict any use of the information to criminally investigate or prosecute any alcohol or drug abuse patient.[facility] the event this information is protected by the Federal Confidentiality of Alcohol and Drug Abuse Patient Records regulations: The Federal rules restrict any use of the information to criminally investigate or prosecute any alcohol or drug abuse patient.[facility] the event this information is protected by the Federal Confidentiality of Alcohol and Drug Abuse Patient Records regulations: The Federal rules restrict any use of the information to criminally investigate or prosecute any alcohol or drug abuse patient.[facility] the event this information is protected by the Federal Confidentiality of Alcohol and Drug Abuse Patient Records regulations: The Federal rules restrict any use of the information to criminally investigate or prosecute any alcohol or drug abuse patient.[facility] the event this information is protected by the Federal Confidentiality of Alcohol and Drug Abuse Patient Records regulations: The Federal rules restrict any use of the information to criminally investigate or prosecute any alcohol or drug abuse patient.[facility] the event this information is protected by the Federal Confidentiality of Alcohol and Drug Abuse Patient Records regulations: The Federal rules restrict any use of the information to criminally investigate or prosecute any alcohol or drug abuse patient.[facility] the event this information is protected by the Federal Confidentiality of Alcohol and Drug Abuse Patient Records regulations: The Federal rules restrict any use of the information to criminally investigate or prosecute any alcohol or drug abuse patient.[facility] the event this information is protected by the Federal Confidentiality of Alcohol and Drug Abuse Patient Records regulations: The Federal rules restrict any use of the information to criminally investigate or prosecute any alcohol or drug abuse patient.[facility] the event this information is protected by the Federal Confidentiality of Alcohol and Drug Abuse Patient Records regulations: The Federal rules restrict any use of the information to criminally investigate or prosecute any alcohol or drug abuse patient.[facility] the event this information is protected by the Federal Confidentiality of Alcohol and Drug Abuse Patient Records regulations: The Federal rules restrict any use of the information to criminally investigate or prosecute any alcohol or drug abuse patient.[facility] the event this information is protected by the Federal Confidentiality of Alcohol and Drug Abuse Patient Records regulations: The Federal rules restrict any use of the information to criminally investigate or prosecute any alcohol or drug abuse patient.[facility] the event this information is protected by the Federal Confidentiality of Alcohol and Drug Abuse Patient Records regulations: The Federal rules restrict any use of the information to criminally investigate or prosecute any alcohol or drug abuse patient.[facility] the event this information is protected by the Federal Confidentiality of Alcohol and Drug Abuse Patient Records regulations: The Federal rules restrict any use of the information to criminally investigate or prosecute any alcohol or drug abuse patient.[facility] the event this information is protected by the Federal Confidentiality of Alcohol and Drug Abuse Patient Records regulations: The Federal rules restrict any use of the information to criminally investigate or prosecute any alcohol or drug abuse patient.[facility] the event this information is protected by the Federal Confidentiality of Alcohol and Drug Abuse Patient Records regulations: The Federal rules restrict any use of the information to criminally investigate or prosecute any alcohol or drug abuse patient.[facility] the event this information is protected by the Federal Confidentiality of Alcohol and Drug Abuse Patient Records regulations: The Federal rules restrict any use of the information to criminally investigate or prosecute any alcohol or drug abuse patient.[facility] the event this information is protected by the Federal Confidentiality of Alcohol and Drug Abuse Patient Records regulations: The Federal rules restrict any use of the information to criminally investigate or prosecute any alcohol or drug abuse patient.[facility] the event this information is protected by the Federal Confidentiality of Alcohol and Drug Abuse Patient Records regulations: The Federal rules restrict any use of the information to criminally investigate or prosecute any alcohol or drug abuse patient.[facility] the event this information is protected by the Federal Confidentiality of Alcohol and Drug Abuse Patient Records regulations: The Federal rules restrict any use of the information to criminally investigate or prosecute any alcohol or drug abuse patient.[facility] the event this information is protected by the Federal Confidentiality of Alcohol and Drug Abuse Patient Records regulations: The Federal rules restrict any use of the information to criminally investigate or prosecute any alcohol or drug abuse patient.[facility] the event this information is protected by the Federal Confidentiality of Alcohol and Drug Abuse Patient Records regulations: The Federal rules restrict any use of the information to criminally investigate or prosecute any alcohol or drug abuse patient.[facility] the event this information is protected by the Federal Confidentiality of Alcohol and Drug Abuse Patient Records regulations: The Federal rules restrict any use of the information to criminally investigate or prosecute any alcohol or drug abuse patient.[facility] the event this information is protected by the Federal Confidentiality of Alcohol and Drug Abuse Patient Records regulations: The Federal rules restrict any use of the information to criminally investigate or prosecute any alcohol or drug abuse patient.[facility] the event this information is protected by the Federal Confidentiality of Alcohol and Drug Abuse Patient Records regulations: The Federal rules restrict any use of the information to criminally investigate or prosecute any alcohol or drug abuse patient.[facility] HospitalIn the event this information is protected [...] prosecute any alcohol or drug abuse patient.[facility] HospitalIn the event this information is protected by the Federal Confidentiality of Alcohol and Drug Abuse Patient Records regulations: The Federal rules restrict any use of the information to criminally investigate or prosecute any alcohol or drug abuse patient.[facility] HospitalIn the event this information is protected by the Federal Confidentiality of Alcohol and Drug Abuse Patient Records regulations: The Federal rules restrict any use of the information to criminally investigate or prosecute any alcohol or drug abuse patient.[facility] HospitalIn the event this information is protected by the Federal Confidentiality of Alcohol and Drug Abuse Patient Records regulations: The Federal rules restrict any use of the information to criminally investigate or prosecute any alcohol or drug abuse patient.[facility] HospitalIn the event this information is protected by the Federal Confidentiality of Alcohol and Drug Abuse Patient Records regulations: The Federal rules restrict any use of the information to criminally investigate or prosecute any alcohol or drug abuse patient.[facility] HospitalIn the event this information is protected by the Federal Confidentiality of Alcohol and Drug Abuse Patient Records regulations: The Federal rules restrict any use of the information to criminally investigate or prosecute any alcohol or drug abuse patient.[facility] HospitalIn the event this information is protected by the Federal Confidentiality of Alcohol and Drug Abuse Patient Records regulations: The Federal rules restrict any use of the information to criminally investigate or prosecute any alcohol or drug abuse patient.[facility] HospitalIn the event this information is protected by the Federal Confidentiality of Alcohol and Drug Abuse Patient Records regulations: The Federal rules restrict any use of the information to criminally investigate or prosecute any alcohol or drug abuse patient.[facility] HospitalIn the event this information is protected by the Federal Confidentiality of Alcohol and Drug Abuse Patient Records regulations: The Federal rules restrict any use of the information to criminally investigate or prosecute any alcohol or drug abuse patient.[facility] HospitalIn the event this information is protected by the Federal Confidentiality of Alcohol and Drug Abuse Patient Records regulations: The Federal rules restrict any use of the information to criminally investigate or prosecute any alcohol or drug abuse patient.[facility] HospitalIn the event this information is protected by the Federal Confidentiality of Alcohol and Drug Abuse Patient Records regulations: The Federal rules restrict any use of the information to criminally investigate or prosecute any alcohol or drug abuse patient.[facility] HospitalIn the event this information is protected by the Federal Confidentiality of Alcohol and Drug Abuse Patient Records regulations: The Federal rules restrict any use of the information to criminally investigate or prosecute any alcohol or drug abuse patient.[facility] HospitalIn the event this information is protected by the Federal Confidentiality of Alcohol and Drug Abuse Patient Records regulations: The Federal rules restrict any use of the information to criminally investigate or prosecute any alcohol or drug abuse patient.[facility] HospitalIn the event this information is protected by the Federal Confidentiality of Alcohol and Drug Abuse Patient Records regulations: The Federal rules restrict any use of the information to criminally investigate or prosecute any alcohol or drug abuse patient.[facility] HospitalIn the event this information is protected by the Federal Confidentiality of Alcohol and Drug Abuse Patient Records regulations: The Federal rules restrict any use of the information to criminally investigate or prosecute any alcohol or drug abuse patient.[facility] HospitalIn the event this information is protected by the Federal Confidentiality of Alcohol and Drug Abuse Patient Records regulations: The Federal rules restrict any use of the information to criminally investigate or prosecute any alcohol or drug abuse patient.[facility] HospitalIn the event this information is protected by the Federal Confidentiality of Alcohol and Drug Abuse Patient Records regulations: The Federal rules restrict any use of the information to criminally investigate or prosecute any alcohol or drug abuse patient.[facility] HospitalIn the event this information is protected by the Federal Confidentiality of Alcohol and Drug Abuse Patient Records regulations: The Federal rules restrict any use of the information to criminally investigate or prosecute any alcohol or drug abuse patient.[facility] HospitalIn the event this information is protected by the Federal Confidentiality of Alcohol and Drug Abuse Patient Records regulations: The Federal rules restrict any use of the information to criminally investigate or prosecute any alcohol or drug abuse patient.[facility] HospitalIn the event this information is protected by the Federal Confidentiality of Alcohol and Drug Abuse Patient Records regulations: The Federal rules restrict any use of the information to criminally investigate or prosecute any alcohol or drug abuse patient.[facility] HospitalIn the event this information is protected by the Federal Confidentiality of Alcohol and Drug Abuse Patient Records regulations: The Federal rules restrict any use of the information to criminally investigate or prosecute any alcohol or drug abuse patient.[facility] HospitalIn the event this information is protected by the Federal Confidentiality of Alcohol and Drug Abuse Patient Records regulations: The Federal rules restrict any use of the information to criminally investigate or prosecute any alcohol or drug abuse patient.[facility] HospitalIn the event this information is protected by the Federal Confidentiality of Alcohol and Drug Abuse Patient Records regulations: The Federal rules restrict any use of the information to criminally investigate or prosecute any alcohol or drug abuse patient.[facility] HospitalIn the event this information is protected by the Federal Confidentiality of Alcohol and Drug Abuse Patient Records regulations: The Federal rules restrict any use of the information to criminally investigate or prosecute any alcohol or drug abuse patient.[facility] HospitalIn the event this information is protected by the Federal Confidentiality of Alcohol and Drug Abuse Patient Records regulations: The Federal rules restrict any use of the information to criminally investigate or prosecute any alcohol or drug abuse patient.[facility] HospitalIn the event this information is protected by the Federal Confidentiality of Alcohol and Drug Abuse Patient Records regulations: The Federal rules restrict any use of the information to criminally investigate or prosecute any alcohol or drug abuse patient.[facility] HospitalIn the event this information is protected by the Federal Confidentiality of Alcohol and Drug Abuse Patient Records regulations: The Federal rules restrict any use of the information to criminally investigate or prosecute any alcohol or drug abuse patient.[facility] HospitalIn the event this information is protected by the Federal Confidentiality of Alcohol and Drug Abuse Patient Records regulations: The Federal rules restrict any use of the information to criminally investigate or prosecute any alcohol or drug abuse patient.[facility] HospitalIn the event this information is protected by the Federal Confidentiality of Alcohol and Drug Abuse Patient Records regulations: The Federal rules restrict any use of the information to criminally investigate or prosecute any alcohol or drug abuse patient.[facility] HospitalIn the event this information is protected by the Federal Confidentiality of Alcohol and Drug Abuse Patient Records regulations: The Federal rules restrict any use of the information to criminally investigate or prosecute any alcohol or drug abuse patient.[facility] HospitalIn the event this information is protected by the Federal Confidentiality of Alcohol and Drug Abuse Patient Records regulations: The Federal rules restrict any use of the information to criminally investigate or prosecute any alcohol or drug abuse patient.[facility] HospitalIn the event this information is protected by the Federal Confidentiality of Alcohol and Drug Abuse Patient Records regulations: The Federal rules restrict any use of the information to criminally investigate or prosecute any alcohol or drug abuse patient.[facility] HospitalIn the event this information is protected by the Federal Confidentiality of Alcohol and Drug Abuse Patient Records regulations: The Federal rules restrict any use of the information to criminally investigate or prosecute any alcohol or drug abuse patient.[facility] HospitalIn the event this information is protected by the Federal Confidentiality of Alcohol and Drug Abuse Patient Records regulations: The Federal rules restrict any use of the information to criminally investigate or prosecute any alcohol or drug abuse patient.[facility] HospitalIn the event this information is protected by the Federal Confidentiality of Alcohol and Drug Abuse Patient Records regulations: The Federal rules restrict any use of the information to criminally investigate or prosecute any alcohol or drug abuse patient.[facility] HospitalIn the event this information is protected by the Federal Confidentiality of Alcohol and Drug Abuse Patient Records regulations: The Federal rules restrict any use of the information to criminally investigate or prosecute any alcohol or drug abuse patient.[facility] HospitalIn the event this information is protected by the Federal Confidentiality of Alcohol and Drug Abuse Patient Records regulations: The Federal rules restrict any use of the information to criminally investigate or prosecute any alcohol or drug abuse patient.[facility] HospitalIn the event this information is protected by the Federal Confidentiality of Alcohol and Drug Abuse Patient Records regulations: The Federal rules restrict any use of the information to criminally investigate or prosecute any alcohol or drug abuse patient.[facility] HospitalIn the event this information is protected by the Federal Confidentiality of Alcohol and Drug Abuse Patient Records regulations: The Federal rules restrict any use of the information to criminally investigate or prosecute any alcohol or drug abuse patient.[facility] HospitalIn the event this information is protected by the Federal Confidentiality of Alcohol and Drug Abuse Patient Records regulations: The Federal rules restrict any use of the information to criminally investigate or prosecute any alcohol or drug abuse patient.[facility] HospitalIn the event this information is protected by the Federal Confidentiality of Alcohol and Drug Abuse Patient Records regulations: The Federal rules restrict any use of the information to criminally investigate or prosecute any alcohol or drug abuse patient.[facility] HospitalIn the event this information is protected by the Federal Confidentiality of Alcohol and Drug Abuse Patient Records regulations: The Federal rules restrict any use of the information to criminally investigate or prosecute any alcohol or drug abuse patient.[facility] HospitalIn the event this information is protected by the Federal Confidentiality of Alcohol and Drug Abuse Patient Records regulations: The Federal rules restrict any use of the information to criminally investigate or prosecute any alcohol or drug abuse patient.[facility] Reason for Visit (unrecogniz ed section [...] REAL TIME WITH IMAGE LIMITED Brenda Shankar, FRONT END DEVELOPER JAVASCRIPT HTML CSS.WINDER HELPER [address] [place] [address] [facility] [address] [place] [address] Referral ID Status Reason Start Date Expiration Date V isits Requested Visits Authorized [id number] Closed Auto-Generate d Referral 09/05/2021 10/05/2022 1 1 Reason Comments Radiology Mammogram Specialty Diagnoses / Procedures Referred By Contac t Referred To Contact [facility] Diagnoses Abnormal mammogram Procedures SABINO DIAGNOSTIC LT DIAGNOSTIC MAMMOGRAPHY COMPUTER-AIDED DETCJ UNI Vonnie, Brenda, FRONT END DEVELOPER JAVASCRIPT HTML CSS.WINDER HELPER [address] [place] [address] [facility] [address] [place] [address] Referral ID Status Reason Start Date Expiration Date V isits Requested Visits Authorized [id number] Closed Auto-Generate d Referral 09/05/2021 10/05/2022 1 [...] NEW HIGH MDM 60-74 MINUTES Jeana Sommers APRN.WINDER HELPER [address] [place] [address] Referral ID Status Reason Start Date Expiration Date Visits Requested Visits Authorized [id number] Pending Review PCP Requested Referral 10/11/2022 10/11/2023 1 1 Reason Onset Date Comments Refill Request 12/20/[address] Specialty Diagnoses / Procedures Referred By Divya reis Referred To Contact CT IMAGING Diagnoses Lung nodules Procedures CT CHEST WO IVCON DIAGNOSTIC COMPUTED TOMOGRAPHY THORAX W/O Florence Duncan MD [address] [place] [address] Ct Imaging [place] [address] Referral ID Status Reason Start Date Expiration Date V isits Requested Visits Authorized [id number] Closed Auto-Generate d Referral 11/29/2021 12/29/2022 1 1 Reason Comments Imm/Inj COVID vaccine and di scuss RSV Reason Comments Refill Request Reason Comments Cough Cough and congestion x 4 weeks Reason Onset Date Comments Appointment 03/23/2023 Care Teams (unrecognized sec tion and content) Log Cut Off Sawyer Relationship Specialty Start Date End Date Claudine Durán MD [address] [place], [place] [id number] PCP - General Internal Medicine 03/02/16 Will Hurley [address] [place] [facility] [address] Referring Rheumatology 04/09/18 Gold Colón, clerk television productionUltrasonographer Internal Medicine 07/22/20 Log Cut Off Sawyer Relationship Specialty Start Date End Date Claudine Durán MD [address] [place], [place] [address] PCP - General Internal Medicine 03/02/16 Will Hurley [address] [place] [address] Referring Rheumatology 04/09/18 Gold Colón, clerk television productionUltrasonographer Internal Medicine 07/22/20 Log Cut Off Sawyer Relationship Specialty Start Date End Date Claudine Durán MD [address] [place] [address] PCP - General Internal Medicine 03/02/16 Will Hurley [address] [place] [place] [address] Referring Rheumatology 04/09/18 Gold Colón, clerk television productionUltrasonographer Internal Medicine 07/22/20 Log Cut Off Sawyer Relationship Specialty Start Date End Date Claudine Durán MD [address] [place] [address] PCP - General Internal Medicine 03/02/16 Will Hurley [address] [place] [place] [address] Referring Rheumatology 04/09/18 Gold Colón, clerk television productionUltrasonographer Internal Medicine 07/22/20 Log Cut Off Sawyer Relationship Specialty Start Date End Date Claudine Durán MD [address] [place], [place] [id number] PCP - General Internal Medicine 03/02/16 Will Hurley [address] [place] [place] [address] Referring Rheumatology 04/09/18 Gold Colón, clerk television productionUltrasonographer Internal Medicine 07/22/20 Log Cut Off Sawyer Relationship Specialty Start Date End Date Claudine Durán MD [address] [facility] [place] [address] PCP - General Internal Medicine 03/02/16 Will Hurley [address] [place] [place] [address] Referring Rheumatology 04/09/18 Gold Colón, clerk television productionUltrasonographer Internal Medicine 07/22/20 Log Cut Off Sawyer Relationship Specialty Start Date End Date Claudine Durán MD [address] [place] [address] PCP - General Internal Medicine 03/02/16 Will Hurley [address] [place] [place] [address] Referring Rheumatology 04/09/18 Gold Colón, clerk television productionUltrasonographer Internal Medicine 07/22/20 Log Cut Off Sawyer Relationship Specialty Start Date End Date Claudine Durán MD [address] [facility] [place] [address] PCP - General Internal Medicine 03/02/16 Will Hurley [address] [place] [place] [address] Referring Rheumatology 04/09/18 Gold Colón, clerk television productionUltrasonographer Internal Medicine 07/22/20 Log Cut Off Sawyer Relationship Specialty Start Date End Date Claudine Durán MD [address] [facility] [place] [address] PCP - General Internal Medicine 03/02/16 Will Hurley [address] [place] [place] [address] Referring Rheumatology 04/09/18 Gold Colón, clerk television productionUltrasonographer Internal Medicine 07/22/20 Log Cut Off Sawyer Relationship Specialty Start Date End Date Claudine Durán MD [address] [facility] [place] [address] PCP - General Internal Medicine 03/02/16 Will Hurley [address] [place] [place] [address] Referring Rheumatology 04/09/18 Gold Colón, clerk television productionUltrasonographer Internal Medicine 07/22/20 Log Cut Off Sawyer Relationship Specialty Start Date End Date Claudine Durán MD [address] [facility] [place] [address] PCP - General Internal Medicine 03/02/16 Will Hurley [address] [place] [place] [address] Referring Rheumatology 04/09/18 Gold Colón, clerk television productionUltrasonographer Internal Medicine 07/22/20 Log Cut Off Sawyer Relationship Specialty Start Date End Date Claudine Durán MD [address] [facility] [address] PCP - General Internal Medicine 03/02/16 Will Hurley [address] [place] [place] [address] Referring Rheumatology 04/09/18 Gold Colón, clerk television productionUltrasonographer Internal Medicine 07/22/20 Log Cut Off Sawyer Relationship Specialty Start Date End Date Claudine Durán MD [address] [facility] [address] PCP - General Internal Medicine 03/02/16 Will Hurley [address] [place] [address] Referring Rheumatology 04/09/18 Gold Colón, clerk television productionUltrasonographer Internal Medicine 07/22/20 Log Cut Off Sawyer Relationship Specialty Start Date End Date Claudine Durán MD [address] [facility], [place] [id number] PCP - General Internal Medicine 03/02/16 Will Hurley [address] [place] [place] [address] Referring Rheumatology 04/09/18 Gold Colón clerk television productionUltrasonographer Internal Medicine 07/22/20 Log Cut Off Sawyer Relationship Specialty Start Date End Date Claudine Durán MD [address] [facility] [address] PCP - General Internal Medicine 03/02/16 Will Hurley [address] [place] [place] [address] Referring Rheumatology 04/09/18 Gold Colón clerk television productionUltrasonographer Internal Medicine 07/22/20 Log Cut Off Sawyer Relationship Specialty Start Date End Date Claudine Durán MD [address] [facility], [place] [address] PCP - General Internal Medicine 03/02/16 Will Hurely [address] [place] [place] [address] Referring Rheumatology 04/09/18 Gold Colón clerk television productionUltrasonographer Internal Medicine 07/22/20 Log Cut Off Sawyer Relationship Specialty Start Date End Date Claudine Durán MD [address] [facility] [address] PCP - General Internal Medicine 03/02/16 Will Hurley [address] [place] [place] [address] Referring Rheumatology 04/09/18 Gold Colón, clerk television productionUltrasonographer Internal Medicine 07/22/20 Log Cut Off Sawyer Relationship Specialty Start Date End Date Claudine Durán MD [address] [facility] [address] PCP - General Internal Medicine 03/02/16 Will granger [address] [place] [place] [address] Referring Rheumatology 04/09/18 Lulú Ramos, RN [address] [place], [place] [id number] Ultrasonographer Family Medicine 07/22/20 Log Cut Off Sawyer Relationship Specialty Start Date End Date Claudine Durán MD [address] [facility] [address] PCP - General Internal Medicine 03/02/16 Will Hurley [address] [place] [place] [address] Referring Rheumatology 04/09/18 Gold Colón, clerk television productionUltrasonographer Internal Medicine 07/22/20 12/20/21 Lulú Ramos, PAULA [address] [place], [place] [id number] Ultrasonographer Family Medicine 07/22/20 Log Cut Off Sawyer Relationship Specialty Start Date End Date Claudine Durán MD [address] [facility], [place] [address] PCP - General Internal Medicine 03/02/16 Will Hurley [address] [facility] [place] [address] Referring Rheumatology 04/09/18 Lulú Ramos, RN [address] [place] [address] Ultrasonographer Family Medicine 07/22/20 Log Cut Off Sawyer Relationship Specialty Start Date End Date Claudine Durán MD [address] [facility] [address] PCP - General Internal Medicine 03/02/16 Will Hurley [facility] [place] [address] Referring Rheumatology 04/09/18 Lulú Ramos, PAULA [address] [place] [address] Ultrasonographer Family Medicine 07/22/20 Log Cut Off Sawyer Relationship Specialty Start Date End Date Claudine Durán MD [address] [facility] [place] [address] PCP - General Internal Medicine 03/02/16 Will Hurley [facility] [place] [address] Referring Rheumatology 04/09/18 Lulú Ramos, PAULA [address] [place] [address] Ultrasonographer Family Medicine 07/22/20 Log Cut Off Sawyer Relationship Specialty Start Date End Date Claudine Durán MD [address] [facility] [address] PCP - General Internal Medicine 03/02/16 Will Hurley [facility] [place] [address] Referring Rheumatology 04/09/18 Lulú Ramos, RN [address] [place] [address] Ultrasonographer Family Medicine 07/22/20 Log Cut Off Sawyer Relationship Specialty Start Date End Date Claudine Durán MD [address] [facility] [address] PCP - General Internal Medicine 03/02/16 Will Hurley [address] [facility] [place] [address] Referring Rheumatology 04/09/18 Lulú Ramos, RN [address] [place] [address] Ultrasonographer Family Medicine 12/20/21 Log Cut Off Sawyer Relationship Specialty Start Date End Date Claudine Durán MD [address] [facility] [address] PCP - General Internal Medicine 03/02/16 Will Hurley [address] [place] [place] [address] Referring Rheumatology 04/09/18 Lulú Ramos, PAULA [address] [place] [address] Ultrasonographer Family Medicine 12/20/21 Log Cut Off Sawyer Relationship Specialty Start Date End Date Claudine Durán MD [address] [facility] [address] PCP - General Internal Medicine 03/02/16 Will Hurley [address] [facility] [place] [address] Referring Rheumatology 04/09/18 Lulú Ramos, RN [address] [place] [address] Ultrasonographer Family Medicine 12/20/21 Log Cut Off Sawyer Relationship Specialty Start Date End Date Claudine Durán MD [address] [facility] [address] PCP - General Internal Medicine 03/02/16 Will Hurley [facility] [place] [address] Referring Rheumatology 04/09/18 Lulú Ramos, RN [address] [place] [address] Ultrasonographer Family Medicine 12/20/21 Log Cut Off Sawyer Relationship Specialty Start Date End Date Claudine Durán MD [address] [facility] [address] PCP - General Internal Medicine 03/02/16 Will Hurley [address] [place] [address], [place] [address] Referring Rheumatology 04/09/18 Lulú Ramos, PAULA [address] [place] [address] Ultrasonographer Family Medicine 12/20/21 Log Cut Off Sawyer Relationship Specialty Start Date End Date Claudine Durán MD [address] [facility] [address] PCP - General Internal Medicine 03/02/16 Will Hurley [address] [place], [place] [address]Geri [facility] [place] [address] Referring Rheumatology 04/09/18 Lulú Ramos, PAULA [address] [place] [address] Ultrasonographer Family Medicine 12/20/21 Log Cut Off Sawyer Relationship Specialty Start Date End Date Claudine Durán MD [address] [place] [address] PCP - General Internal Medicine 03/02/16 Will [facility] [facility] [place] [address] Referring Rheumatology 04/09/18 Lulú Ramos, PAULA [address] [place] [address] Ultrasonographer Family Medicine 12/20/21 Log Cut Off Sawyer Relationship Specialty Start Date End Date Claudine Durán MD [address] [facility] [place] [address] PCP - General Internal Medicine 03/02/16 Will Hurley [facility] [place] [place] [address] Referring Rheumatology 04/09/18 Lulú Ramos, PAULA [address] [place] [address] Ultrasonographer Family Medicine 12/20/21 Log Cut Off Sawyer Relationship Specialty Start Date End Date Claudine Durán MD [address] [facility] [place] [address] PCP - General Internal Medicine 03/02/16 Will Hurley [address] [place] [address], [place] [address] Referring Rheumatology 04/09/18 Lulú Ramos RN [address] [place] [address] Ultrasonographer Family Medicine 12/20/21 Log Cut Off Sawyer Relationship Specialty Start Date End Date Claudine Durán MD [address] [facility] [place] [address] PCP - General Internal Medicine 03/02/16 Will Hurley [facility] [place] [place] [address] Referring Rheumatology 04/09/18 Lulú Ramos, PAULA [address] [place] [address] Ultrasonographer Family Medicine 12/20/21 Log Cut Off Sawyer Relationship Specialty Start Date End Date Claudine Durán MD [address] [place] [address] PCP - General Internal Medicine 03/02/16 Will Hurley [address] [place] [facility] [address] Referring Rheumatology 04/09/18 Ilda Miller, RN [address] [place] [address] Ultrasonographer 07/27/22 Log Cut Off Sawyer Relationship Specialty Start Date End Date Claudine Durán MD [address] [place] [address] PCP - General Internal Medicine 03/02/16 Will Hurley [address] [place] [facility] [place] [address] Referring Rheumatology 04/09/18 Ilda Miller RN [address] [place] [address] Ultrasonographer 07/27/22 Log Cut Off Sawyer Relationship Specialty Start Date End Date Claudine Durán MD [address] [place] [address] PCP - General Internal Medicine 03/02/16 Will Hur[facility] [address] [facility] [place] [address] Referring Rheumatology 04/09/18 Ilda Miller RN [address] [place] [address] Ultrasonographer 07/27/22 Log Cut Off Sawyer Relationship Specialty Start Date End Date Claudine Durán MD [address] [facility] [place] [address] PCP - General Internal Medicine 03/02/16 Will Hurley [address] [place] [address] Referring Rheumatology 04/09/18 Ilda Miller, PAULA [address] [place] [address] Ultrasonographer 07/27/22 Log Cut Off Sawyer Relationship Specialty Start Date End Date Claudine Durán MD [address] [place], [place] [address]10441 PCP - General Internal Medicine 03/02/16 Will Hurley [address] [facility] [place], [place] [address] Referring Rheumatology 04/09/18 Ilda Miller RN [address] [place] [address] Ultrasonographer 07/27/22 Log Cut Off Sawyer Relationship Specialty Start Date End Date Claudine Durán MD [address] [place], [place] [id number] PCP - General Internal Medicine 03/02/16 Will Hurley [address] [facility] [place] [address] Referring Rheumatology 04/09/18 Ilda Miller, PAULA [address] [place] [address] Ultrasonographer 07/27/22 Log Cut Off Sawyer Relationship Specialty Start Date End Date Claudine Durán MD [address] [place], [place] [address]26[address] PCP - General Internal Medicine 03/02/16 Will Hurley [address] [facility] [place] [address] Referring Rheumatology 04/09/18 Ilda Miller, RN [address] [place] [address] Ultrasonographer 07/27/22 Log Cut Off Sawyer Relationship Specialty Start Date End Date Claudine Durán MD [address] [place] [address] PCP - General Internal Medicine 03/02/16 Will Hurley [address] [facility] [place] [address] Referring Rheumatology 04/09/18 Ilda Miller RN [address] [place] [address] Ultrasonographer 07/27/22 Log Cut Off Sawyer Relationship Specialty Start Date End Date Claudine Durán MD [address] [place] [address] PCP - General Internal Medicine 03/02/16 Will Hurley [address] [facility] [place] [address] Referring Rheumatology 04/09/18 Ilda Miller, PAULA [address] [place] [address] Ultrasonographer 07/27/22 Log Cut Off Sawyer Relationship Specialty Start Date End Date Claudine Durán MD [address] [place], [place] [id number] [phone] PCP - General Internal Medicine 03/02/16 Will Hurley [address] [place] [address] Referring Rheumatology 04/09/18 Ilda Miller, RN [address] [place] [address] Ultrasonographer 07/27/22 Log Cut Off Sawyer Relationship Specialty Start Date End Date Claudine Durán MD [address] [facility], [place] [address]48[address] PCP - General Internal Medicine 03/02/16 Will Hurley [address] [facility] [place] [address] Referring Rheumatology 04/09/18 Ilda Miller, PAULA [address] [place] [address] Ultrasonographer 07/27/22 Log Cut Off Sawyer Relationship Specialty Start Date End Date Claudine Durán MD [address] [facility] [place] [address] PCP - General Internal Medicine 03/02/16 Will Hurley [address] [facility] [place] [address] Referring Rheumatology 04/09/18 Ilda Miller, PAULA [address] [place] [address] Ultrasonographer 07/27/22 Log Cut Off Sawyer Relationship Specialty Start Date End Date Claudine Durán MD [address] [facility] [place] [address] PCP - General Internal Medicine 03/02/16 Will Hurley [address] [facility], [place] [address] Referring Rheumatology 04/09/18 Lulú Ramos, RN [address] [place] [address] Ultrasonographer Family Medicine 12/20/2107/26 Log Cut Off Sawyer Relationship Specialty Start Date End Date Claudine Durán MD [address] [place], [place] 604[address] PCP - General Internal Medicine 03/02/16 Will Hurley [address] [facility] [place] [address] Referring Rheumatology 04/09/18 Ilda Miller RN [address] [place] [address] Ultrasonographer 07/27/22 Log Cut Off Sawyer Relationship Specialty Start Date End Date Claudine Durán MD [address] [place], [place] [address]44[address] PCP - General Internal Medicine 03/02/16 Will Hurley [address] [facility] [place] [address] Referring Rheumatology 04/09/18 Ilda Miller RN [address] [place] [address] Ultrasonographer 07/27/22 Log Cut Off Sawyer Relationship Specialty Start Date End Date Claudine Durán MD [address] [place] [address] PCP - General Internal Medicine 03/02/16 Will Hurley [address] [place] [address] Referring Rheumatology 04/09/18 Ilda Miller, PAULA [address] [place] [address] Ultrasonographer 07/27/22 Lynne Maynard, clerk television production Public Message Service Supervisor 03/26/23 FOR RECORDS PERTAINING TO PATIENTS WHO [...] BE BASED ON THE PRIMARY CLINICAL RECORDS. [facility]. provides no warranty or guarantee of the accuracy or completeness of information in this document.
--- NOTE | 2023-03-31 20:23 | ED.RN ---
pt provides medication list, but unable to provide information on which medications she is/isn't taking. states her life has been complicated over the last two weeks and she has no idea what she is taking at this time.
--- OUTSIDE RECORDS SUMMARY | 2023-03-31 21:10 | XMS RPT_ITS | CCD ---
Author Name Unknown Address [address] [place] [address] Organization [facility] Care Team Providers Care Casino Duty Manager Name Role Phone Mykel Santamaria Unavailable Unavailable Mykel Santamaria Unavailable Unavailable UNKNOWN, REFERR Unavailable Unavailable Will Hurley Attending Unavailable PROVIDER, UNKNOWN Referring Unavailable No, PCP Primary Care Unavailable Claudine Durán MD Primary Care Provider Will Hurley Unavailable Gold Colón RN Unavailable UnavailClaudine Cannon MD Primary Care Provider Will Hurley Unavailable [phone] Gold Colón RN Unavailable UnavailWill Vaz Unavailable Lulú Ramos RN Unavailable [phone] Gold Colón RN Unavailable UnavailClaudine Cannon MD Primary Care Provider Will Hurley Unavailable [phone] Rachel RN, Lulú Unavailable [phone] Rachel RN, Lulú Unavailable [phone] Paul RN, Ilda Unavailable Paul RN, [...] [PENICILLINS] Propensity to adverse reactions (disorder) 5 [facility] Repository Medications Current Medications Medication Drug [...] Long-term current use of anticoagulant; 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 02-07-2023 10:36-0500 Body weight 59.69 kg Adri Zaragoza APRN.CNP Work Phone: [facility] 02-07-2023 10:36-0500 Diastolic blood pressure 82 mm[Hg] Adri Zaragoza APRN.CNP Work Phone: [facility] 02-07-2023 10:36-0500 Heart rate 87 /min Adri Zaragoza APRN.CNP Work Phone: [facility] 02-07-2023 10:36-0500 Respiratory rate 18 /min Adri Callow WAREHOUSE RECEIVER.PATIENT RESOURCE COORDINATOR Work Phone: [facility] 02-07-2023 10:36-0500 SaO2% (BldA) [Mass fraction] 98 % Adri Callow WAREHOUSE RECEIVER.PATIENT RESOURCE COORDINATOR Work Phone: [facility] 02-07-2023 10:36-0500 Systolic blood pressure 134 mm[Hg] Adri Callow WAREHOUSE RECEIVER.PATIENT RESOURCE COORDINATOR Work Phone: [facility] 01-04-2023 10:33-0500 Body weight 58.06 kg Jimbo Carias WAREHOUSE RECEIVER.BUSINESS CONSULT Work Phone: [facility] 01-04-2023 10:33-0500 Diastolic blood pressure 75 mm[Hg] Jimbo Carias WAREHOUSE RECEIVER.BUSINESS CONSULT Work Phone: [facility] 01-04-2023 10:33-0500 Heart rate 77 /min Jimbo Carias WAREHOUSE RECEIVER.BUSINESS CONSULT Work Phone: [facility] 01-04-2023 10:33-0500 Respiratory rate 16 /min Jimbo Carias WAREHOUSE RECEIVER.BUSINESS CONSULT Work Phone: [facility] 01-04-2023 10:33-0500 Systolic blood pressure 128 mm[Hg] Jimbo Carias WAREHOUSE RECEIVER.BUSINESS CONSULT Work Phone: [facility] 10-27-2022 09:03-0400 Body weight 59.42 kg Jimbo Carias WAREHOUSE RECEIVER.BUSINESS CONSULT Work Phone: [facility] 10-27-2022 09:03-0400 Diastolic blood pressure 66 mm[Hg] Jimbo Carias WAREHOUSE RECEIVER.BUSINESS CONSULT Work Phone: [facility] 10-27-2022 09:03-0400 Heart rate 76 /min Jimbo Carias WAREHOUSE RECEIVER.BUSINESS CONSULT Work Phone: [facility] 10-27-2022 09:03-0400 Respiratory rate 16 /min Jimbo Carias WAREHOUSE RECEIVER.BUSINESS CONSULT Work Phone: [facility] 10-27-2022 09:03-0400 Systolic blood pressure 119 mm[Hg] Jimbo Carias WAREHOUSE RECEIVER.BUSINESS CONSULT Work Phone: [facility] 08-29-2022 09:26-0400 Body height 162.6 cm Rachelleiván Lai WAREHOUSE RECEIVER.PATIENT RESOURCE COORDINATOR Work Phone: [facility] 08-29-2022 09:26-0400 Body weight 58.51 kg Rachelle Eris WAREHOUSE RECEIVER.PATIENT RESOURCE COORDINATOR Work Phone: [facility] 08-29-2022 09:26-0400 Diastolic blood pressure 78 mm[Hg] Rachelleiván Lai WAREHOUSE RECEIVER.PATIENT RESOURCE COORDINATOR Work Phone: [facility] 08-29-2022 09:26-0400 Heart rate 75 /min Rachelle Lai WAREHOUSE RECEIVER.PATIENT RESOURCE COORDINATOR Work Phone: [facility] 08-29-2022 09:26-0400 SaO2% (BldA) [Mass fraction] 98 % Rachelleiván Lai WAREHOUSE RECEIVER.PATIENT RESOURCE COORDINATOR Work Phone: [facility] 08-29-2022 09:26-0400 Systolic blood pressure 142 mm[Hg] Rachelle Eris WAREHOUSE RECEIVER.PATIENT RESOURCE COORDINATOR Work Phone: [facility] 07-20-2022 09:28-0400 Body weight 58.06 kg Florence Terry MD Work Phone: [facility] 07-20-2022 09:28-0400 Diastolic blood pressure 72 mm[Hg] Florence Terry MD Work Phone: [facility] 07-20-2022 09:28-0400 Heart rate 50 /min Florence Terry MD Work Phone: [facility] 07-20-2022 09:28-0400 Respiratory rate 17 /min Florence Terry MD Work Phone: [facility] 07-20-2022 09:28-0400 SaO2% (BldA) [Mass fraction] 100 % Florence Terry MD Work Phone: [facility] 07-20-2022 09:28-0400 Systolic blood pressure 122 mm[Hg] Florence Terry MD Work Phone: [facility] 03-13-2022 10:13-0500 Body temperature 96.69 [degF] Claudine Durán MD Work Phone: [facility] 03-13-2022 10:13-0500 Body weight 59.56 kg Claudine Durán MD Work Phone: [facility] 03-13-2022 10:13-0500 Diastolic blood pressure 68 mm[Hg] Claudine Durán MD Work Phone: [facility] 03-13-2022 10:13-0500 Heart rate 75 /min Claudine Durán MD Work Phone: [facility] 03-13-2022 10:13-0500 Respiratory rate 18 /min Claudine Durán MD Work Phone: [facility] 03-13-2022 10:13-0500 SaO2% (BldA) [Mass fraction] 100 % Claudine Durán MD Work Phone: [facility] 03-13-2022 10:13-0500 Systolic blood pressure 112 mm[Hg] Claudine Durán MD Work Phone: [facility] 11-29-2021 10:07-0400 Body weight 58.51 kg Florence Terry MD Work Phone: [facility] 11-29-2021 10:07-0400 Diastolic blood pressure 76 mm[Hg] Florence Terry MD Work Phone: [facility] 11-29-2021 10:07-0400 Heart rate 92 /min Florence Terry MD Work Phone: [facility] 11-29-2021 10:07-0400 Respiratory rate 18 /min Florence Terry MD Work Phone: [facility] 11-29-2021 10:07-0400 SaO2% (BldA) [Mass fraction] 97 % Florence Terry MD Work Phone: [facility] 11-29-2021 10:07-0400 Systolic blood pressure 122 mm[Hg] Florence Terry MD Work Phone: [facility] 11-10-2021 09:220400 Body weight 60.33 kg Jimbo Carias WAREHOUSE RECEIVER.BUSINESS CONSULT Work Phone: [facility] 11-10-2021 09:22-0400 Diastolic blood pressure 80 mm[Hg] Jimbo Carias WAREHOUSE RECEIVER.BUSINESS CONSULT Work Phone: [facility] 11-10-2021 09:22-0400 Heart rate 76 /min Jimbo Carias WAREHOUSE RECEIVER.BUSINESS CONSULT Work Phone: [facility] 11-10-2021 09:22-0400 Respiratory rate 16 /min Jimbo Carias WAREHOUSE RECEIVER.BUSINESS CONSULT Work Phone: [facility] 11-10-2021 09:22-0400 Systolic blood pressure 152 mm[Hg] Jimbo Carias WAREHOUSE RECEIVER.BUSINESS CONSULT Work Phone: [facility] 09-20-2021 13:45-0400 Body weight 58.51 kg Jimbo Carias WAREHOUSE RECEIVER.BUSINESS CONSULT Work Phone: [facility] 09-20-2021 13:45-0400 Diastolic blood pressure 64 mm[Hg] Jimbo Carias WAREHOUSE RECEIVER.BUSINESS CONSULT Work Phone: [facility] 09-20-2021 13:45-0400 Heart rate 85 /min Jimbo Carias WAREHOUSE RECEIVER.BUSINESS CONSULT Work Phone: [facility] 09-20-2021 13:45-0400 SaO2% (BldA) [Mass fraction] 96 % Jimbo Carias WAREHOUSE RECEIVER.BUSINESS CONSULT Work Phone: [facility] 09-20-2021 13:45-0400 Systolic blood pressure 128 mm[Hg] Jimbo Carias WAREHOUSE RECEIVER.BUSINESS CONSULT Work Phone: [facility] 08-12-2021 11:01-0400 Body height 162.6 cm William Ambriz DO Work Phone: [facility] 08-12-2021 11:01-0400 Body weight 59.42 kg William Ambriz DO Work Phone: [facility] 08-12-2021 11:01-0400 Diastolic blood pressure 74 mm[Hg] William Ambriz DO Work Phone: [facility] 08-12-2021 11:01-0400 Heart rate 72 /min William Ambriz DO Work Phone: [facility] 08-12-2021 11:01-0400 SaO2% (BldA) [Mass fraction] 99 % William Ambriz DO Work Phone: [facility] 08-12-2021 11:01-0400 Systolic blood pressure 130 mm[Hg] William Ambriz DO Work Phone: [facility] 07-11-2021 08:10-0400 Body weight 58.06 kg Claudine Durán MD Work Phone: [facility] 07-11-2021 08:10-0400 Diastolic blood pressure 74 mm[Hg] Claudine Durán MD Work Phone: [facility] 07-11-2021 08:10-0400 Heart rate 76 /min Claudine Durán MD Work Phone: [facility] 07-11-2021 08:10-0400 Systolic blood pressure 122 mm[Hg] Claudine Durán MD Work Phone: [facility] 2021 14:57-0400 Body height 162.6 cm Julio Andujar MD Work Phone: [facility] 2021 14:57-0400 Body weight 58.33 kg Julio Andujar MD Work Phone: [facility] 2021 14:57-0400 Diastolic blood pressure 67 mm[Hg] Julio Andujar MD Work Phone: [facility] 2021 14:57-0400 Heart rate 98 /min Julio Andujar MD Work Phone: [facility] 2021 14:57-0400 Respiratory rate 14 /min Julio Andujar MD Work Phone: [facility] 2021 14:57-0400 SaO2% (BldA) [Mass fraction] 99 % Julio Andujar MD Work Phone: [facility] 2021 14:57-0400 Systolic blood pressure 144 mm[Hg] Julio Andujar MD Work Phone: [facility] 03-14-2021 08:08-0500 Body height 162.6 cm Claudine Durán MD Work Phone: [facility] 03-14-2021 08:08-0500 Body temperature 97.5 [degF] Claudine Durán MD Work Phone: [facility] 03-14-2021 08:08-0500 Body weight 58.06 kg Claudine Durán MD Work Phone: [facility] 03-14-2021 08:08-0500 Diastolic blood pressure 62 mm[Hg] Claudine Durán MD Work Phone: [facility] 03-14-2021 08:08-0500 Heart rate 87 /min Claudine Durán MD Work Phone: [facility] 03-14-2021 08:08-0500 Respiratory rate 14 /min Claudine Durán MD Work Phone: [facility] 03-14-2021 08:08-0500 SaO2% (BldA) [Mass fraction] 99 % Claudine Durán MD Work Phone: [facility] 03-14-2021 08:08-0500 Systolic blood pressure 118 mm[Hg] Claudine Durán MD Work Phone: [facility] Encounters Encounter Date Encounter Type Care Provider Facility Start: 03-27-2023 E-mail encounter fro m caregiver William Ambriz DO Work Phone: [facility] [place] Start: 03-27-2023 Patient encounter procedure Gr clint Ambriz DO Work Phone: Cardiology Procedures Date Procedure Procedure Detail Performing Clinician Start: 02-07-2023 COVID & INFLUENZA A/ B & RSV NAAT, ROUTINE Adri Zaragoza WAREHOUSE RECEIVER.PATIENT RESOURCE COORDINATOR Work Phone: Start: 01-04-2023 PFIZER-BIONTECH COVI D-19 VACCINE ( SEASON) AGE 12+ YR [facility] WAREHOUSE RECEIVER.BUSINESS CONSULT Work Phone: Start: 01-04-2023 Prothrombin time [facility] WAREHOUSE RECEIVER.BUSINESS CONSULT Work Phone: Start: 11-17-2022 Screening digital br east tomosynthesis bi [facility] WAREHOUSE RECEIVER.BUSINESS CONSULT Work Phone: Start: 10-27-2022 INFLUENZA VACCINE, P RSV FREE, AGE 65+ YR, HIGH DOSE, QUADRIVALENT (FLUZONE HIGH-DOSE) [facility] WAREHOUSE RECEIVER.BUSINESS CONSULT Work Phone: Start: 08-29-2022 Ecg routine ecg w/le ast 12 lds i&r only [facility] Provider Start: 07-20-2022 Ct thorax w/o contra st material Florence Terry MD Work Phone: Start: 11-10-2021 INFLUENZA SEASONAL QUADRIVALENT HIGH DOSE AGE 65+ [facility] WAREHOUSE RECEIVER.BUSINESS CONSULT Work Phone: Start: 11-10-2021 PFIZER-BIONTECH COVI D-19 BIVALENT BOOSTER VACCINE, AGE 12+ YR [facility] WAREHOUSE RECEIVER.BUSINESS CONSULT Work Phone: Start: 11-10-2021 Adult depression scr eening assessment [facility] WAREHOUSE RECEIVER.BUSINESS CONSULT Work Phone: Start: 10-18-2021 Radex foot complete minimum 3 views Yonas Louise Work Phone: Start: 10-12-2021 Diagnostic mammograp hy computer-aided detcj uni Brenda Anayacalf WAREHOUSE RECEIVER.PATIENT RESOURCE COORDINATOR Work Phone: Start: 09-05-2021 End: 09-05-2021 Screening mammography bi [facility] W[facility]HOUSE RECE[facility].PATIENT RESOURCE COORDINATOR Work Phone: Start: 07-11-2021 [employer]-20x200 COVI D-19 VACCINE, AGE 12+ YR (ARIAS TOP) Claudine Durán MD Work Phone: Start: 07-07-2021 Lipid 1996 panel - S luisito or Plasma Ashly Shay RN Start: 07-13-2020 Adult depression scr eening assessment Nara Dopart Start: 06-01-2020 Mammography Nara Medina opart Start: 03-24-2019 Colonoscopy Nara Medina opart Plan of Treatment Date Care Activity Detail Author Start: 11-05-[address] [facility] Start: 03-24-[address] [facility] Start: 03-24-2029 COLORECTAL CANCER SCREENING COLORECTAL CANCER SCREENING [facility] Start: 03-24-2029 Screening for malignant neoplasm of colon [facility] Start: 07-07-2026 Lipid 1996 panel - Serum or Plasma Lipid Screening [facility] Start: 07-07-2026 Lipid panel Lipid Screening [facility] Start: 07-07-2026 LIPID SCREEN LIPID SCREEN [facility] Start: 03-25-2026 Diabetes Screening Diabetes Screening [facility] Start: 03-22-2026 Diabetes Screening Diabetes Screening [facility] Start: 03-03-2024 BP Controlled (<130/80) BP Controlled (<130/80) [facility] Start: 01-05-2024 BP Controlled (<130/80) BP Controlled (<130/80) [facility] Start: 10-28-2023 BP CONTROLLED (<130/80) BP CONTROLLED (<130/80) [facility] Start: 07-21-2023 BP CONTROLLED (<130/80) BP CONTROLLED (<130/80) [facility] Start: 07-08-2023 DIABETES SCREEN DIABETES SCREEN [facility] Start: 07-08-2023 Diabetes Screening Diabetes Screening [facility] Start: 03-13-2023 ANNUAL PCP TEAM CHRONIC DISEASE VISIT ANNUAL PCP TEAM CHRONIC DISEASE VISIT [facility] Start: 03-13-2023 BP CONTROLLED (<130/80) BP CONTROLLED (<130/80) [facility] Start: 03-01-2023 Covid-19 Vaccine () Covid-19 Vaccine () [facility] Start: 02-19-2023 Advance Directive Discussion Advance Directive Discussion [facility] Start: 02-19-2023 Depression Assessment Depression Assessment [facility] Start: 01-23-2023 End: 08-23-2023 Ct thorax w/o contrast material CT CHEST WO IVCON Radiology Routine Lung nodules Bronchiectasis without complication (HCC) Expected: 01/23/2023, Expires: 08/23/2023 [facility] Work Phone: Immunizations Immunization Date Immunization Notes Care Provider Galindo leyva 01-04-2023 COVID-19 vaccine, ag e 12+ yr, season (PFIZER-BIONTECH) Jimbo Carias WAREHOUSE RECEIVER.[facility] Work Phone: [facility] Work Phone: 10-27-2022 influenza (HD-IIV4) vaccine, age 65+ yr, high dose, quadrivalent, PF (FLUZONE HIGH-DOSE) Jimbo Carias WAREHOUSE RECEIVER.BUSINESS CONSULT Work Phone: [facility] Work Phone: 11-10-2021 COVID-19 booster vaccine, age 12+ yr, bivalent (PFIZER-BIONTECH) Jimbo Carias WAREHOUSE RECEIVER.[facility] Work Phone: [facility] Work Phone: 11-10-2021 influenza, high-dose , quadrivalent vaccine (FLUZONE HIGH DOSE QUADRIVALENT) Jimbo Carias WAREHOUSE RECEIVER.BUSINESS CONSULT Work Phone: [facility] Work Phone: 07-11-2021 COVID-19 vaccine, ag e 12+ yr (PFIZER-BIONTECH - ARIAS TOP) Anticoag Wstr Work Phone: [facility] 11-21-2020 COVID-19 original vaccine, age 12+ yr, monovalent (PFIZER-BIONTECH - PURPLE TOP) Claudine Durán MD Work Phone: [facility] 11-09-2020 COVID-19 vaccine, ag e 12+ yr (PFIZER-BIONTECH - PURPLE TOP) Nara Talavera [facility] 11-09-2020 influenza, high-dose , quadrivalent vaccine (FLUZONE HIGH DOSE QUADRIVALENT) [facility] Work Phone: 05-13-2020 COVID-19 vaccine, ag e 12+ yr (PFIZER-BIONTECH - PURPLE TOP) [facility] Work Phone: 04-22-2020 COVID-19 vaccine, ag e 12+ yr (PFIZER-BIONTECH - PURPLE TOP) [facility] Work Phone: 11-06-2019 influenza, high-dose , quadrivalent vaccine (FLUZONE HIGH DOSE QUADRIVALENT) [facility] Work Phone: 11-06-2019 tetanus and diphther ia toxoids, adsorbed, preservative free, for adult use (5 Lf of tetanus toxoid and 2 Lf of diphtheria toxoid) [facility] Work Phone: 11-28-[address] [facility] 10-26-2018 influenza, high dose seasonal, preservative-free [facility] 07-23-[address] [facility] 11-27-2017 influenza, high dose seasonal, preservative-free [facility] 02-07-2017 pneumococcal polysaccharide vaccine, 23 valrandall Durán MD Work Phone: [facility] 01-31-2017 influenza, high dose seasonal, preservative-free [facility] 12-13-2016 pneumococcal polysaccharide vaccine, 23 ravi Durán MD Work Phone: [facility] 11-28-2016 pneumococcal polysaccharide vaccine, 23 ravi Durán MD Work Phone: [facility] 12-13-2015 influenza, high dose seasonal, preservative-free [facility] 11-10-2014 influenza, high dose seasonal, preservative-free [facility] 03-30-2014 pneumococcal conjuga te vaccine, [address] [facility] 12-08-2013 pneumococcal polysaccharide vaccine, 23 valrandall Durán MD Work Phone: [facility] 11-24-2013 influenza, seasonal, injectable [facility] 03-24-2013 pneumococcal polysaccharide vaccine, 23 valent Nara [facility] 11-18-2012 influenza virus vacc ine, unspecified formulation [facility] Work Phone: 11-10-2011 influenza virus vacc ine, unspecified formulation [facility] 11-23-2010 influenza virus vacc ine, unspecified formulation [facility] 10-07-2009 tetanus toxoid, redu amarilis diphtheria toxoid, and acellular pertussis vaccine, adsorbed [facility] 10-29-2008 influenza virus vacc ine, unspecified formulation [facility] 09-22-1999 diphtheria and tetan us toxoids, adsorbed for pediatric use [facility] Work Phone: Payers Date Payer Category Payer Medicare AETNA MEDICARE A ETNA MEDICARE PPO [id number] 2021-Present [phone] [address] [place] [address] PPO [id number] 2021 Medicare AETNA MEDICARE A ETNA MEDICARE PPO [id number] 2021-Present [phone] [address] [place] [address] [facility] [id number] 2021 Medicare [id number] 1945 Unknown [id number] Medicare [id number] Private Health Insurance Social History Date Type Detail Facility Start: 08-28-2019 End: 11-10-2021 Tobacco smoking status NHIS Ex-smoker [facility] End: 02-19-1989 History of tobacco use Current smoker [facility] End: 02-19-1989 History of tobacco use Cigarette Smoker [facility] Start: 05-03-2021 End: 03-03-2023 Alcohol intake Current drinker of alcohol (finding) [facility] Start: 11-28-2019 End: 03-06-2022 History SDOH Alcohol Frequency 2 [facility] Start: 11-28-2019 End: 03-06-2022 History SDOH Alcohol Std Drinks 1 [facility] Start: 03-31-2019 End: 03-06-2022 History SDOH Social Connections Rastafarian 3 [facility] Start: 03-31-2019 End: 03-06-2022 History SDOH Social Connections Living 4 [facility] Start: 07-28-2019 End: 03-06-2022 History SDOH Physical Activity DPW 5 [facility] Start: 03-31-[address] [facility] Start: 08-28-2019 End: 11-10-2021 Tobacco Comment Late heavy smoker. [facility] Start: 1945 Sex Assigned At Female [facility] Start: 05-02-2021 End: 12-31-2021 Exposure to SARS-CoV-2 (event) Not sure [facility] Work Phone: Start: 08-28-2019 End: 06-22-2022 Cigarettes smoked current (pack per day) - Reported 1 [facility] Start: 08-28-2019 End: 11-10-2021 Tobacco use and exposure Smokeless tobacco non-user [facility] Start: 03-06-2022 End: 06-22-2022 Social connection and isolation panel [facility] Do you belong to any clubs or organizations such as rastafari groups, unions, fraternal or athletic groups, or school groups? Yes [facility] Are you now , , , , never or living with a partner? [facility] How often to you hav e a drink containing alcohol? Monthly or less [facility] How many standard dr inks containing alcohol do you have on a typical day? [address] [facility] How often do you hav e 6 or more drinks on 1 occasion? Never [facility] How hard is it for y ou to pay for the very basics like food, housing, medical care, and heating Not hard at all [facility] Do you feel stress - tense, restless, nervous, or anxious, or unable to sleep at night because your mind is troubled all the time - these days [OSQ] Not at all [facility] (I/We) worried wheth er (my/our) food would run out before (I/we) got money to buy more. Never true [facility] In the past 12 month s, was there a time when you were not able to pay the mortgage or rent on time? No [facility] Start: 03-04-2019 Gender identity Identifies as female gender (finding) [facility] Start: 03-04-2019 Sexual orientation Heterosexual (finding) [facility] Goals Date Patient Goal Desired Activity /State Personal health goal Clinical Notes 03-08-2018 to 03-25-2023 Telephone Encounter - Racehlle Leonard APRN.PATIENT RESOURCE COORDINATOR - 03/23/2023 5:16 PM Adri Duran APRN.PATIENT RESOURCE COORDINATOR - 02/07/2023 10:52 AM Flex Brown RN - 02/02/2023 3:19 PM ESTPatient Instructions Note Date & Type Note Facility 03-25-2023 Note HNO ID: [id number] Author: ARMEN FERNANDEZ, PAULA Service: Nursing Author Type: Registered Nurse Type: Nursing Progress Note Filed: 03/25/2023 08:58 Note Text: Sepsis alert, sound paged, vitals stable, pt stable, waitng for call-back from sound. [facility] 03-24-2023 Note HNO ID: [id number] Author: SHARAN RIVAS MD Service: Hospital Medicine Author Type: Physician Type: Progress Notes Filed: 03/24/2023 13:51 Note Text: DEPARTMENT OF HOSPITAL MEDICINE PROGRESS NOTE Hospital Medicine/Primary Attending: Sharan Rivas MD NIGHT AND WEEKEND COVERAGE: Before 7 pm please page Team color pager After 7pm please page [phone] MEDICATIONS: Current Facility-Administered Medications Medication Dose Route [...] (SPORANOX) 200 mg ORAL BID phenol 1 [place] (CHLORASEPTIC) 1 [place] MUCOUS MEMBRANE (TOPICAL MOUTH AND THROAT) q [...] was found to be COVID-19 positive in [place]. Imaging showed intraperitoneal air and pneumatosis intestinalis and patient was transferred to [facility]. Pulmonology was consulted and patient was started on remdesivir and Decadron for COVID-19. Also started on itraconazole, Cipro and Flagyl. Surgery was involved with no surgical plans. # Pneumatosis intestinalis and pneumoper (more content not included)... [facility] 03-24-2023 Note HNO ID: [id number] Author: MAGAN COURTNEY DO Service: Pulmonary Disease [...] of disseminated histoplasmosis. She is followed in [place], [place]. She has a history of previous [...] She presented to the emergency room at [place] after a vigorous coughing episode and coughing [...] (SPORANOX) 200 mg ORAL BID phenol 1 [place] (CHLORASEPTIC) 1 [place] MUCOUS MEMBRANE (TOPICAL MOUTH AND THROAT) q [...] no adenopathy; thyroi (more content not included)... [facility] 03-23-2023 Miscellaneous Notes Please schedule patient to follow with Dr. Burger in 2 months. Thank you documented in this encounter [facility] 03-23-2023 Note HNO ID: [id number] Author: TENZIN NELSON RN Service: Care Management Author Type: Registered Nurse Type: Care Mgt Progress Note Filed: 03/23/2023 14:44 Note Text: CARE MANAGEMENT PROGRESS NOTE SERVICE DATE: 03/23/2023 SERVICE TIME: 12:22 PM LOS: 4 days Post-Acute Discharge Planning Patient Goal(s): Be able to go home, General wellness [place] Explained: [place] Given: No Reason Not Given: [...] 23, 2023 TIME: 2:37 PM PAGER/CONTACT #: [phone] [facility] 03-23-2023 Note HNO ID: [id number] Author: MAGAN COURTNEY DO Service: Pulmonary Disease [...] of disseminated histoplasmosis. She is followed in [place], [place]. She has a history of previous [...] She presented to the emergency room at [place] after a vigorous coughing episode and coughing [...] pelvis 03/19/2023 Abnorma (more content not included)... [facility] 03-23-2023 Note HNO ID: [id number] Author: SHARAN RIVAS MD Service: Hospital Medicine [...] (SPORANOX) 200 mg ORAL BID phenol 1 Mountain Iron (CHLORASEPTIC) 1 [place] Iron MUCOUS MEMBRANE (TOPICAL MOUTH AND THROAT) q [...] and VTE on (more content not included)... [facility] 03-22-2023 Note HNO ID: [id number] Author: GENO BURGER MD Service: Infectious Disease [...] home -Patient can call my office at [phone] to get an appointment for about 3 [...] for recurrent lower extremity DVT, presented to [facility] 03/19/2023 for hemoptysis, going to the [place] ED but then sent here due to [...] be COVID-positive. Interestingly a CAT scan at [place] found pneumatosis intestinalis and intraperitoneal free air comp (more content not included)... [facility] 03-22-2023 Note HNO ID: [id number] Author: MAGAN COURTNEY DO Service: Pulmonary Disease [...] of disseminated histoplasmosis. She is followed in [place], [place]. She has a history of previous [...] She presented to the emergency room at [place] after a vigorous coughing episode and coughing [...] Positive PCR for COVID-19 supposedly reported from [facility]. Chest and abdomen/pelvis reviewed CTA chest 03/19/2023 No pulmonary embolism Prominent reticular no (more content not included)... [facility] 03-22-2023 Note HNO ID: [id number] Author: YAN PEREZ DO Service: General Surgery [...] kg/m? Yan Perez DO 03/22/2023 1:52 PM] [facility] 03-22-2023 Note HNO ID: [id number] Author: JOSE LUIS CRISTOBAL DO Service: General Surgery Author Type: Resident Type: Plan of Care Filed: 03/22/2023 13:52 Note Text: CT Scan ordered and reviewed. Still without any abdominal pain, tolerating diet. Pneumatosis intestinalis improving Surgery will sign off. Please call with questions Emergency General Surgery Service Pager: For questions or concerns Mon-Fri 6a-5p please page [phone]. After 5pm and on Weekends and Holidays, please page [phone] if in ICU or [phone] if on RNF. [facility] 03-22-2023 Note HNO ID: [id number] Author: SHARAN RIVAS MD Service: Hospital Medicine Author Type: Physician Type: Progress Notes Filed: 03/23/2023 09:28 Note Text: DEPARTMENT OF HOSPITAL MEDICINE PROGRESS NOTE Hospital Medicine/Primary Attending: Sharan Rivas MD NIGHT AND WEEKEND COVERAGE: Before 7 pm please page Team color pager After 7pm please page [phone] MEDICATIONS: Current Facility-Administered Medications Medication Dose Route [...] (SPORANOX) 200 mg ORAL BID phenol 1 Mountain Iron (CHLORASEPTIC) 1 [place] MUCOUS MEMBRANE (TOPICAL MOUTH AND THROAT) q [...] plan: Haydee Weber (more content not included)... [facility] 03-21-2023 Note HNO ID: [id number] Author: GENO BURGER MD Service: Infectious Disease [...] for recurrent lower extremity DVT, presented to [facility] 03/19/2023 for hemoptysis, going to the [place] ED but then sent here due to [...] be COVID-positive. Interestingly a CAT scan at [place] found pneumatosis intestinalis and intraperitoneal free air [...] -- 03/21/23 1000 remdesivir in NaCl 0.9% Vial-Mate/ADD-Hawthorne 100 mg 275 mL 100 mg, INTRAVENOUS, EVERY 24 HOURS See Amada for full Linked Orders Report. 03/23/23 0959 03/20/23 1300 itraconazole 200 mg oral liquid (SPORANOX) 200 mg, ORAL, 3 TIMES DAILY 03/23/23 1259 01/29/24 2000 cipro (more content not included)... [facility] 03-21-2023 Note HNO ID: [id number] Author: PAMELA HALL MD Service: General Surgery [...] 0659 03/21/23 07 - 03/22/23 0659 Shift 3827-2501 2802-9735 8406-0529 24 Hour Total 0968-7598 0320-0531 7049-2911 24 Hour Total INTAKE IV 1275 1275 [...] Dose Route Frequency remdesivir in NaCl 0.9% Vial-Mate/ADD-Hawthorne 100 mg 275 mL 100 mg INTRAVENOUS [...] (SPORANOX) 200 mg ORAL TID phenol 1 [place] (CHLORASEPTIC) 1 [place] Iron MUCOUS MEMBRANE (TOPICAL MOUTH AND THROAT) q [...] arthritis (HCC) 03/07/2015 Overview Note: Dr. Hurley ([facility]) Assessment: 77 year old female with PMH significant for RA (Humira), HTN, h/o disseminated Histoplasmosis, bronchiectasis, VTE (on coumadin), pulmonary nodules, and presenting to the ED today after an episode of hemoptysis at home. CTAP had an incidental finding of a small amount of intraperitoneal air and pneumatosis in the colon. INR on arrival to [place] was 9. She given Vitamin K and transferred here. Hospital Course/Operations/Procedures: * No surgery found * Plan: Pneumatosis intestinalis and intraperitoneal free air - labs and imaging reviewed - Small amount of air on (more content not included)... [facility] 03-21-2023 Note HNO ID: [id number] Author: MAGAN COURTNEY DO Service: Pulmonary Disease [...] of disseminated histoplasmosis. She is followed in [place], [place]. She has a history of previous [...] She presented to the emergency room at [place] after a vigorous coughing episode and coughing [...] Positive PCR for COVID-19 supposedly reported from [facility]. Chest and abdomen/pelvis reviewed CTA chest [...] atrial cavity normal (more content not included)... [facility] 03-20-2023 Note HNO ID: [id number] Author: SABRA RICHARDSON RN Service: Care Management Author Type: Registered Nurse Type: Care Mgt Initial Assessment Filed: 03/20/2023 16:23 Note Text: CARE MANAGEMENT: ASSESSMENT AND DISCHARGE PLAN SERVICE DATE: March 20, 2023 SERVICE TIME: 4:19 PM PCP: Claudine Durán MD Primary Contact: Extended Emergency Contact Information Primary Emergency Contact: Suzie Gerardo ([facility]) Address: [address] [address] [facility] Relation: Friend Secondary Emergency Contact: Padmini Chang Address: [address] [place] [id number] [place] [address] Mobile Relation: Friend Admission Status: Inpatient Insurance Provider: [employer] PPO Discharge Planning requested by: Per Department Practice Potential Transition Plans Home Advance Directives Current Advance Directive: None Services Manager Attempted to Assist with AD Completion: Yes [...] wellness, Less pain, Wean off of O2 [place] Choice Explained: [place] Choice Given: No Reason Not Given: [...] a friend via private auto. SIGNATURE: Sabra Richarsdon RN PATIENT NAME: Haydee Bustamante DATE: March 20, 2023 TIME: 4:19 PM CONTACT #: [phone] [facility] 03-20-2023 Note HNO ID: [id number] Author: MAGAN COURTNEY DO Service: Pulmonary Disease [...] of disseminated histoplasmosis. She is followed in [place], [place]. She has a history of previous [...] She presented to the emergency room at [place] after a vigorous coughing episode and coughing [...] Positive PCR for COVID-19 supposedly reported from [facility]. Chest and abdomen/pelvis reviewed CTA chest [...] consistent with d (more content not included)... [facility] 03-20-2023 Note HNO ID: [id number] Author: PAMELA HALL MD Service: General Surgery Author Type: Physician Type: Progress Notes Filed: 03/20/2023 14:33 Note Text: Emergency General Surgery Progress Note SERVICE DATE: March 20, 2023 Emergency General Surgery Service Pager: For questions or concerns Mon-Fri 6a-5p please page [phone]. After 5pm and on Weekends and Holidays, please page [phone] if in ICU or [phone] if on RNF. SUBJECTIVE: NAEON. AF and [...] 0659 03/20/23 07 - 03/21/23 0659 Shift 4699-4896 4473-4551 3776-2672 24 Hour Total 4576-7985 2249-0977 1672-5054 24 Hour Total INTAKE IV 300 100 [...] in the colon. INR on arrival to [place] was 9. She given Vitamin K and [...] chemical anticoagulation - INR on arrival to [place] was 9. She given Vitamin K prior to transfer - continue serial abdominal exams - notify general surgery of any acute changes in clinical status D/w Dr. Hall SIGNATURE: Christ Camarena MD PATIENT NAME: Haydee Bustamante DATE: March 20, 2023 TIME: 921 Pager: [phone] Emergency General Surgery Service Pager: For questions or concerns Mon-Fri 6a-5p please page [phone]. After 5pm and on Weekends and Holidays, please page [phone] if in ICU or [phone] if on RNF. Emergency General Surgery (EGS) Staff Addendum: See admit H/P for full attestation following today's patient care visit. I evaluated the patient and personally participated in the jim components. I agree with the resident's findi (more content not included)... [facility] 03-03-2023 Note HNO ID: [id number] Author: NYASIA WICK APRN.[facility] Service: ? Author Type: Nurse Practitioner Type: [...] Anemia Bone marrow involvement with histoplasmosis Bronchiectasis ([facility]) COPD (chronic obstructive pulmonary disease) ([facility]) Disseminated histoplasmosis Colitis, immunosuppression, 01/2018. Diverticulosis of colon (without mention of hemorrhage) Diverticulosis DVT, recurrent, lower extremity, acute ([facility]) 12/10/2014 Esophageal reflux Hiatal hernia 02/25/2018 Hypertension Lung nodule Personal history of unspecified urinary disorder 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 rheumatoid factor ([facility]) 03/07/2015 Dr. Hurley ([facility]) Unspecified hemorrhoids without mention of complication Hemorrhoids [...] SPINE FUSN,POST INTERBODY 2011 Dr. Armando at [facility]. Diskectomy and laminectomy PAST SURGICAL HISTORY [...] fluticasone (FLONASE) 50 mcg/actuation nasal sprayUse 1 [place] in each nostril once daily.Disp: 3 EachRfl: [address] (PROTONIX) 40 mg tabletTake 1 tablet by mouth once daily.Disp: 90 tabletRfl: 3 albuterol HFA (PROAIR HFA) 90 mcg/actuation inhalerInhale 2 Puffs as instructed every 4 hours as needed.Disp: 1 EachRfl: 2 vit A,C,B-Mimm-Yzzdbu (OCUVITE PRESERVISION) 2,148 mcg-113 mg-45 mg-17.4mg tabTake [...] mg by mout (more content not included)... [facility] 03-02-2023 Note HNO ID: [id number] Author: FLEX MEANS RN Service: ? Author Type: Registered Nurse Type: Progress Notes Filed: 03/02/2023 16:09 Note Text: pcp agrees with information [facility] 03-02-2023 Note HNO ID: [id number] Author: FLEX MEANS RN Service: ? Author Type: Registered Nurse Type: Progress Notes Filed: 03/02/2023 16:09 Note Text: patient had inr completed at [facility] patients inr is 1.7 (patients inr range [...] 4 weeks (03/30/23) for follow up INR. [facility] 02-23-2023 Note HNO ID: [id number] Author: JOHANNA BENITES PA-C Service: ? Author Type: Physician Chiropractor Assistant Type: Progress Notes Filed: 02/23/2023 14:58 Note [...] coughing around Thanksgiving. She was seen in [facility] 02/07 and treated with Doxycycline [...] Bronchiectasis (HCC) COPD (chronic obstructive pulmonary disease) ([facility]) Disseminated histoplasmosis Colitis, immunosuppression, 01/2018. Diverticulosis of colon (without mention of hemorrhage) Diverticulosis DVT, recurrent, lower extremity, acute ([facility]) 12/10/2014 Esophageal reflux Hiatal hernia 02/25/2018 Hypertension Lung nodule Personal history of unspecified urinary disorder 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 rheumatoid factor ([facility]) 03/07/2015 Dr. Hurley ([facility]) Unspecified hemorrhoids without mention of complication Hemorrhoids [...] fluticasone (FLONASE) 50 mcg/actuation nasal sprayUse 1 [place] in each nostril once daily.Disp: 3 EachRfl: [address] (PROTONIX) 40 mg tabletTake 1 tablet by mouth once daily.Disp: 90 tabletRfl: 3 albuterol HFA (PROAIR HFA) 90 mcg/actuation inhalerInhale 2 Puffs as instructed every 4 hours as needed.Disp: 1 EachRfl: 2 vit A,C,F-Razr-Ydhtvl (OCUVITE PRESERVISION) 2,148 mcg-113 mg-45 mg-17.4mg tabTake [...] FLX DX W/ (more content not included)... [facility] 02-21-2023 Note HNO ID: [id number] Author: Faviola Anthony RT(R) Service: ? Author Type: Lunch Cook Type: Progress Notes Filed: 02/21/2023 3:59 PM [...] RT Maryann(R) February 21, 2023 3:59 PM [facility] 02-14-2023 Note Patient Outreach ([facility] HAYDEE BUSTAMANTE ([id number]) 1945 F Date Time Provider Department 02/14/23 ILDA MILLER During your visit today, we recorded the following information about you: Ilda Miller RN 02/14/2023 9:29 AM Signed [facility] Telephonic Outreach Provider Action/SHAYNE N/A Follow [...] I'm never short of breath. Based on hooker off, the following disposition is advised: No symptoms or symptoms present, not severe. Routed to: No Action Needed PAN Education Provided this Outreach: No Upcoming appointments reviewed: Appointments for Next 60 Days Date Time Provider Location Dept Phone 02/21/2023 8:[address] [facility] (I-STAT) [place] [phone] 02/21/2023 9:00 AM DELMIS JOHANNA [place] [phone] 03/02/2023 9:45 AM [facility] [phone] 04/09/2023 10:00 AM WILLIAM AMBRIZ [facility] [phone] Ilda Miller RN February 14, 2023 9:29 [...] (FLONASE) 50 mcg/actuation nasal spray Use 1 [place] in each nostril once daily. - pantoprazole DR (PROTONIX) 40 mg tablet Take 1 tablet by mouth once daily. - albuterol HFA (PROAIR HFA) 90 mcg/actuation inhaler Inhale 2 Puffs as instructed every 4 hours as needed. - vit A,C,P-Mehn-Azmgdn (OCUVITE PRESERVISION) 2,148 mcg-113 mg-45 mg-17.4mg tab [...] by this patient by: PATIENT Muna Harris (Principle Software Engineer) [facility] for usp medications. Problem List As Of Date 02/14/2023 Noted Resolved ESOPHAGEAL REFLUX [K21.9] 03/06/2005 MERALGIA PARESTHETICA [G57.10] 03/06/2005 VOICE DISTURBANCE NEC [R49.8] 03/06/2005 Pain in joint, lower leg [M25.569] 10/18/2006 03/02/2018 Embolism and thrombosis (HCC) [I74.9] 11/23/2006 07/07/2021 ARTHROPATHY NOS-UNSPEC [M12.9] 12/05/2006 Enthesopathy of hip region [M76.899] 01/04/2009 07/07/2021 Elevated Liver Enzymes [R74.8] 04/01/2009 Rheumatoid arthritis (HCC) [M06.9] 04/01/2009 03/07/2015 senior living current use of anticoagulant therapy *04/01/2009 Hypertension [I10] 04/13/2010 03/07/2015 Right sided sciatica [M54.31] 03/20/2011 03/30/2014 HNP (herniated nucleus pulposus), lumbar [M51.2*03/20/2011 Atrophic vaginitis [N95.2] 03/06/2013 Ganglion cyst [M67.40] 08/17/2014 DVT, recurrent, lower extremity, acute (HCC) [I*11/20 (more content not included)... [facility] 02-14-2023 Note HNO ID: [id number] Author: Ilda Miller RN Service: ? Author [...] I'm never short of breath. Based on hooker off, the following disposition is advised: No symptoms or symptoms present, not severe. Routed to: No Action Needed PAN Education Provided this Outreach: No Upcoming appointments reviewed: Appointments for Next 60 Days Date Time Provider Location Dept Phone 02/21/2023 8:20 AM [facility] (I-STAT) [place]once [phone] 02/21/2023 9:00 AM JOHANNA BENITES [phone] 03/02/2023 9:45 AM [facility] [place] [phone] 04/09/2023 10:00 AM WILLIAM AMBRIZ [facility] [phone] Ilda Miller RN February 14, 2023 9:29 AM [facility] 02-07-2023 Note HNO ID: [id number] Author: Kathleen Alegria RT(R) Service: Radiology Author [...] RT Mariela(R) February 07, 2023 11:06 AM [facility] 02-07-2023 Note HNO ID: [id number] Author: Adri Zaragoza APRN.PATIENT RESOURCE COORDINATOR Service: ? Author Type: Nurse Practitioner Type: [...] positive rheumatoid factor (HCC) 03/07/2015 Dr. Hurley ([facility]) Unspecified hemorrhoids without mention of complication Hemorrhoids [...] SPINE FUSN,POST INTERBODY 2012 Dr. Armando at [facility]. Diskectomy and laminectomy PAST SURGICAL HISTORY [...] fluticasone (FLONASE) 50 mcg/actuation nasal sprayUse 1 [place] in each nostril once daily.Disp: 3 EachRfl: [address] (PROTONIX) 40 mg tabletTake 1 tablet by mouth once daily.Disp: 90 tabletRfl: 3 albuterol HFA (PROAIR HFA) 90 mcg/actuation inhalerInhale 2 Puffs as instructed every 4 hours as needed.Disp: 1 EachRfl: 2 vit A,C,E-Iihp-Nwqmen (OCUVITE PRESERVISION) 2,148 mcg-113 mg-45 mg-17.4mg tabTake [...] and nursing n (more content not included)... [facility] 02-07-2023 History of Presen t illness [...] hemorrhage) Diverticulosis DVT, recurrent, lower extremity, acute ([facility]) 12/10/2014 Esophageal reflux Hiatal hernia 02/25/2018 Hypertension Lung nodule Personal history of unspecified urinary disorder 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 rheumatoid factor ([facility]) 03/07/2015 Dr. Hurley ([facility]) Unspecified hemorrhoids without mention of complication Hemorrhoids [...] SPINE FUSN,POST INTERBODY 2011 Dr. Armando at [facility]. Diskectomy and laminectomy PAST SURGICAL HISTORY [...] fluticasone (FLONASE) 50 mcg/actuation nasal spray^Use 1 [place] in each nostril once daily.^Disp: 3 Each^Rfl: [address] (PROTONIX) 40 mg tablet^Take 1 tablet by mouth once daily.^Disp: 90 tablet^Rfl: 3 albuterol HFA (PROAIR HFA) 90 mcg/actuation inhaler^Inhale 2 Puffs as instructed every 4 hours as needed.^Disp: 1 Each^Rfl: 2 vit A,C,F-Zsec-Klvwhd (OCUVITE PRESERVISION) 2,148 mcg-113 mg-45 mg-17.4mg tab^Take [...] A/B & RSV NAAT, ROUTINE Adri Zaragoza APRN.PATIENT RESOURCE COORDINATOR documented in this encounter [facility] 02-05-2023 Note Patient Outreach ([facility] HAYDEE BUSTAMANTE ([id number]) 1945 F Date Time Provider Department 02/05/23 ILDA MILLER During your visit today, we recorded the following information about you: Ilda Miller RN 02/05/2023 9:35 AM Signed [facility] Provider Action / FYI: N/A Message received via: technical advisor Pool Are you having any new symptoms that your PCP needs to know about? Yes Do you have new or worsening cough? Yes Do you need to use your rescue (Albuterol) inhaler or nebulizer more often than normal? Yes Contact made with patient: Yes The patient was identified by name and date of . Discussed Care with patient Based on hooker off, the following disposition is advised: No symptoms [...] in bedroom at night. Advised evaluation at [facility]. Pt is agreeable to this and will go today to [place] for evaluation. Advised if becomes SOB or [...] Visit: Community Monitoring Outreach [Other] Cmt: [facility] questionnaire triggered call Primary Visit Diagnosis:Chronic obstructive pulmonary disease with acute exacerbation (HCC) [J44.1] Order(s):PT ED PULMONARY [[id number]] Order #: [id number]: 1 Prescriptions as of 02/05/2023 - budesonide-formoterol [...] (FLONASE) 50 mcg/actuation nasal spray Use 1 [place] in each nostril once daily. - pantoprazole DR (PROTONIX) 40 mg tablet Take 1 tablet by mouth once daily. - albuterol HFA (PROAIR HFA) 90 mcg/actuation inhaler Inhale 2 Puffs as instructed every 4 hours as needed. - vit A,C,C-Duyu-Igqmui (OCUVITE PRESERVISION) 2,148 mcg-113 mg-45 mg-17.4mg tab [...] by this patient by: PATIENT Muna Harris (Principle Software Engineer) [facility] for bed bug exterminator medications. Problem List As Of Date 02/05/2023 Noted Resolved ESOPHAGEAL REFLUX [K21.9] 03/06/2005 MERALGIA PARESTHETICA [G57.10] 03/06/2005 VOICE DISTURBANCE NEC [R49.8] 03/06/2005 Pain in joint, lower leg [M25.569] 10/18/2006 03/02/2018 Embolism and thrombosis (HCC) [I74.9] 11/23/2006 07/07/2021 ARTHROPATHY NOS-UNSPEC [M12.9] more content not included)... [facility] 02-05-2023 Note HNO ID: [id number] Author: Ilda Miller RN Service: ? Author Type: Registered Nurse Type: Progress Notes Filed: 02/05/2023 9:35 AM Note Text: [facility] ESCALATION Provider Action / FYI: N/A Message received via: technical advisor Pool Are you having any new symptoms that your PCP needs to know about? Yes Do you have new or worsening cough? Yes Do you need to use your rescue (Albuterol) inhaler or nebulizer more often than normal? Yes Contact made with patient: Yes The patient was identified by name and date of . Discussed Care with patient Based on hooker off, the following disposition is advised: No symptoms [...] in bedroom at night. Advised evaluation at [facility]. Pt is agreeable to this and will go today to [place] for evaluation. Advised if becomes SOB or cough worsens to the point of not being able to catch her breath, or notes bluish tint around lips to go to nearest ED or call 911. Verbalizes understanding and agreement. Ilda Miller RN February 05, 2023 9:19 AM [facility] 02-02-2023 Note HNO ID: [id number] Author: Flex Means RN Service: ? Author Type: ? Type: Progress Notes Filed: 02/02/2023 3:19 PM Note Text: pcp agrees with information [facility] 02-02-2023 History of Presen t illness Narrative pcp agrees with information patient had inr completed at [facility] patients inr is 2.1 (patients inr range [...] follow up INR. documented in this encounter [facility] 02-02-2023 Note HNO ID: [id number] Author: Flex Means RN Service: ? Author Type: ? Type: Progress Notes Filed: 02/02/2023 3:19 PM Note Text: patient had inr completed at [facility] patients inr is 2.1 (patients inr range [...] 4 weeks (03/02/23) for follow up INR. [facility] 01-24-2023 Miscellaneous Notes GEREMIAS 07/20/22 Patient phones requesting refills as follows: Requested Prescriptions Pending Prescriptions Disp Refills budesonide-formoterol (SYMBICORT) 160-4.5 mcg/actuation inhaler [Pharmacy Med Name: BUDESONIDE/FORM INHALER 10.2GM 160/4.5MCG] 30.6 g 3 Sig: USE 2 INHALATIONS TWICE A DAY INSTRUCTED Please review and advise. Magalie Ngo LPN documented in this encounter [facility] 01-17-2023 Note HNO ID: [id number] Author: Flex Means RN Service: ? Author Type: ? Type: Progress Notes Filed: 01/17/2023 3:02 PM Note Text: pcp agrees with information [facility] 01-17-2023 Note HNO ID: [id number] Author: Flex Means RN Service: ? Author Type: ? Type: Progress Notes Filed: 01/17/2023 3:02 PM Note Text: patient had inr completed at [facility] patients inr is 1.9 (patients inr range [...] the first normal reading since dose change [facility] 01-17-2023 History of Presen t illness Narrative pcp agrees with information patient had inr completed at [facility] Health patients inr is 1.9 (patients inr range [...] since dose change documented in this encounter [facility] 01-10-2023 Note HNO ID: [id number] Author: Flex Means RN Service: ? Author Type: ? Type: Progress Notes Filed: 01/10/2023 3:47 PM Note Text: pcp agrees with information PATIENT NOTIFIED OF INFORMATION [facility] 01-10-2023 History of Presen t illness Narrative pcp agrees with information PATIENT NOTIFIED OF INFORMATION patient had inr completed at [facility] patients inr is 2.9 (patients [...] advise on recommendation documented in this encounter [facility] 01-10-2023 Note HNO ID: [id number] Author: Flex Means RN Service: ? Author Type: ? Type: Progress Notes Filed: 01/10/2023 3:47 PM Note Text: patient had inr completed at [facility] patients inr is 2.9 (patients inr range [...] 01/17/23 please review and advise on recommendation [facility] 01-04-2023 Note HNO ID: [id number] Author: Yesenia Weinstein LPN Service: ? Author Type: ? Type: Progress Notes Filed: 01/04/2023 4:25 PM Note Text: Patient notified of providers message and verbalized understanding. [facility] 01-04-2023 Note HNO ID: [id number] Author: Jimbo Carias APRN.TYLOR Service: ? Author Type: Nurse Specialist Type: Progress Notes Filed: 01/04/2023 4:25 PM Note Text: OK to change coumadin to 7.5mg Tues,Sat,Sun and 5mg all other days and recheck INR in 1 week [facility] 01-04-2023 History of Presen t illness Narrative Patient notified of providers message and verbalized understanding. OK to change coumadin to 7.5mg Tues,Sat,Sun and 5mg all other days and recheck INR in 1 week patient had inr completed at [facility] patients inr is 2.6 (patients inr range [...] advise on recommendation documented in this encounter [facility] 01-04-2023 Note HNO ID: [id number] Author: Flex Means RN Service: ? Author Type: ? Type: Progress Notes Filed: 01/04/2023 4:25 PM Note Text: patient had inr completed at [facility] patients inr is 2.6 (patients inr range [...] 01/10/23 please review and advise on recommendation [facility] 01-04-2023 Note HNO ID: [id number] Author: Jimbo Carias APRN.BUSINESS CONSULT Service: ? Author Type: Nurse Specialist Type: [...] and COPD. HPI excerpted from previous visits: Laborer Yard: Florence Terry MD, last seen July 20, 2022. Seen for follow-up of lung nodules bronchiectasis. Noted are a likely etiology for underlying bronchiectasis. Noted new nodularity of lung, likely represents inflammatory nodules. Will need follow-up CT. No this may improve with bronchopulmonary hygiene. Spiriva and intermittent albuterol has helped with cough. Stable. Nut Tightener: William Ambriz BAV, aortic stenosis , last seen in cardiology August 29, 2022 by Rachelle Lai CNP. Continued on current treatments unchanged. Follow-up echo advised, not yet scheduled.. 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 Continues with methotrexate, Humira.seen by [...] Occasional bruising. [facility] coumadin clinic. Referred by construction framer to see orthopedic physician for her hip. [...] fluticasone (FLONASE) 50 mcg/actuation nasal sprayUse 1 Mountain [place] in each nostril once daily.Disp: 3 EachRfl: [address] (PROTONIX) 40 mg tabletTake 1 tablet by mouth once daily.Disp: 90 tabletRfl: 3 albuterol HFA (PROAIR HFA) 90 mcg/actuation inhalerInhale 2 Puffs as instructed every 4 hours as needed.Disp: 1 EachRfl: 2 vit A,C,W-Ppxm-Zvekhs (OCUVITE PRESERVISION) 2,148 mcg-113 mg-45 mg-17.4mg tabTake 2 tablets by mouth daily with breakfast.Disp: Rfl: potassium chloride ER (KLOR-CON M20) 20 mEq tabletTake 1 tablet by mouth twice daily.Disp: 180 tabletRfl: 3 leucovorin (LEUCOVORIN) 15 mg table (more content not included)... [facility] 01-04-2023 Instructions Jimbo Carias APRN.CNS - 01/04/2023 10:50 AM EST It appears that you have better coverage for the RSV vaccine at your local pharmacy. documented in this encounter [facility] 01-04-2023 History of Presen t illness [...] and COPD. HPI excerpted from previous visits: Laborer Yard: Florence Terry MD, last seen July 20, 2022. Seen for follow-up of lung nodules bronchiectasis. Noted are a likely etiology for underlying bronchiectasis. Noted new nodularity of lung, likely represents inflammatory nodules. Will need follow-up CT. No this may improve with bronchopulmonary hygiene. Spiriva and intermittent albuterol has helped with cough. Stable. Nut Tightener: William Ambriz BAV, aortic stenosis , last seen in cardiology August 29, 2022 by Rachelle Lai CNP. Continued on current treatments unchanged. Follow-up echo advised, not yet scheduled.. 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 Continues with methotrexate, Humira.seen by Dr. [...] Occasional bruising. [facility] coumadin clinic. Referred by construction framer to see orthopedic physician for her hip. [...] fluticasone (FLONASE) 50 mcg/actuation nasal spray^Use 1 [place] Iron in each nostril once daily.^Disp: 3 Each^Rfl: [address] (PROTONIX) 40 mg tablet^Take 1 tablet by mouth once daily.^Disp: 90 tablet^Rfl: 3 albuterol HFA (PROAIR HFA) 90 mcg/actuation inhaler^Inhale 2 Puffs as instructed every 4 hours as needed.^Disp: 1 Each^Rfl: 2 vit A,C,R-Lnlc-Jnyvqc (OCUVITE PRESERVISION) 2,148 mcg-113 mg-45 mg-17.4mg tab^Take [...] hemorrhage) Diverticulosis DVT, recurrent, lower extremity, acute ([facility]) 12/10/2014 Esophageal reflux Hiatal hernia 02/25/2018 Hypertension Lung nodule Personal history of unspecified urinary disorder 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 rheumatoid factor ([facility]) 03/07/2015 Dr. Hurley ([facility]) Unspecified hemorrhoids without mention of complication Hemorrhoids [...] to get at pharmacy discussed risks - [id number] COVID-19 VACCINE ( SEASON) AGE 12+ YR in office today Jimbo Carias APRN.BUSINESS CONSULT Medical Decision Making: Problems: Low: 2+ self-limited or minor problems Risk: Moderate: Drug management Medical Decision Making Level: 3 - Low documented in this encounter [facility] 12-20-2022 Miscellaneous Notes Patient has been [...] Maritza Preston LPN. documented in this encounter [facility] 12-14-2022 Note HNO ID: [id number] Author: Jimbo Carias APRN.BUSINESS CONSULT Service: ? Author Type: Nurse Specialist Type: Progress Notes Filed: 12/14/2022 3:38 PM Note Text: Continue with Coumadin dose unchanged and check INR in 2 or 3 weeks [facility] 12-14-2022 Note HNO ID: [id number] Author: Flex Means RN Service: ? Author [...] week lauryn and patient declines blood draw [facility] 12-14-2022 History of Presen t illness Narrative Continue with Coumadin dose unchanged and check INR in 2 or 3 weeks patient had inr completed at [facility] patients inr is 2.2 (patients inr range [...] declines blood draw documented in this encounter [facility] 12-07-2022 Note HNO ID: [id number] Author: Yesenia Weinstein LPN Service: ? Author Type: ? Type: Progress Notes Filed: 12/07/2022 4:46 PM Note Text: Patient notified of providers message regarding coumadin instructions and verbalized understanding. [facility] 12-07-2022 Note HNO ID: [id number] Author: Jimbo Carias APRN.TYLOR Service: ? Author Type: Nurse Specialist Type: Progress Notes Filed: 12/07/2022 4:46 PM Note Text: Recommend Coumadin 5 mg Sunday and 7.5 mg all other days and check INR in 1 week [facility] 12-07-2022 History of Presen t illness Narrative Patient notified of providers message regarding coumadin instructions and verbalized understanding. Recommend Coumadin 5 mg Sunday and 7.5 mg all other days and check INR in 1 week patient had inr completed at [facility] patients inr is 2.5 (patients inr range [...] advise on recommendation documented in this encounter [facility] 12-07-2022 Note HNO ID: [id number] Author: Flex Means RN Service: ? Author Type: ? Type: Progress Notes Filed: 12/07/2022 4:46 PM Note Text: patient had inr completed at [facility] patients inr is 2.5 (patients inr range [...] 12/14/22 please review and advise on recommendation [facility] 11-20-2022 Miscellaneous Notes November 20, 2022 PID: [id number] Haydee Bustamante [address] [place] [address] Dear Ms. Bustamante, We are pleased to [...] report will be kept on file at [facility] as part of your permanent medical record and are available for your continuing care. Thank you for allowing us to help in meeting your health care needs. Sincerely, Dr. Basurto Interpreting Radiologist [facility] (Normal over 40) documented in this encounter [facility] 11-17-2022 Note HNO ID: [id number] Author: Aide Gupta, RT(R) Service: ? Author [...] Rosa Maria(R) November 17, 2022 9:00 AM [facility] 11-17-2022 Note HNO ID: [id number] Author: Shahnaz Ferguson Mammo Tech Service: ? Author Type: Lunch Cook Type: Progress Notes Filed: 11/17/2022 9:25 AM [...] Haider Adams November 17, 2022 9:00 AM [facility] 11-17-2022 History of Presen t illness [...] 2022 9:00 AM documented in this encounter [facility] 11-17-2022 Miscellaneous Notes Negative, 1 year screening follow-up documented in this encounter [facility] 11-09-2022 Note HNO ID: [id number] Author: Jimbo Carias APRN.CNS Service: ? Author Type: Nurse Specialist Type: Progress Notes Filed: 11/09/2022 4:58 PM Note Text: Continue Coumadin dose unchanged and check INR in 4 weeks [facility] 11-09-2022 History of Presen t illness Narrative Continue Coumadin dose unchanged and check INR in 4 weeks patient had inr completed at [facility] patients inr is 1.9 (patients inr range [...] follow up INR. documented in this encounter [facility] 11-09-2022 Note HNO ID: [id number] Author: Flex Means RN Service: ? Author Type: ? Type: Progress Notes Filed: 11/09/2022 4:58 PM Note Text: patient had inr completed at [facility] patients inr is 1.9 (patients inr range [...] 4 weeks (12/07/22) for follow up INR. [facility] 11-09-2022 Note HNO ID: [id number] Author: Ron Bell MD Service: ? Author Type: Physician Type: Progress Notes Filed: 12/07/2022 8:52 AM Note Text: Ron Bell MD Department of Orthopaedics Orthopaedics [address] [place] [address] Dept: [phone] Dept November 09, 2022 CHIEF COMPLAINT: New [...] joints. FOLLOW UP INSTRUCTIONS: As needed Ms. Hadyee Bustamante was advised as to contrast therapies [...] acute pathology. 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 Pattern Lease Inspector: KRYSTAL Transcribe Date/Time: Dec 31 2021 11:55A [...] hemorrhage) Diverticulosis DVT, recurrent, lower extremity, acute ([facility]) 12/10/2014 Esophageal reflux Hiatal hernia 02/25/2018 Hypertension Lung nodule Personal history of unspecified urinary disorder 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 rheumatoid factor ([facility]) 03/07/2015 Dr. Hurley ([facility]) Unspecified hemorrhoids without mention of complication Hemorrhoids [...] SPINE FUSN,POST INTERBODY 2012 Dr. Armando at [facility]. Diskectomy and laminectomy PAST SURGICAL HISTORY OF 03/07/1999 removal facial lesion PAST SURGICAL HISTORY OF 08/17/2014 excision soft tissue mass left index finger TONSILLECTOMY PRIMARY/SECONDARY TRANSCATH RETRIEVAL,JEVON 12/28/2006 Family History: FAMILY HISTORY Problem Relation Age of Onset Cancer Mother brain Social History: Social History To (more content not included)... [facility] 11-09-2022 Miscellaneous Notes patients orders for coumadin clinic inr's has at this time. new order has been pended for approval if possible so that patient can continue to get inr's completed thru the coumadin clinic. coumadin clinic nurse only needs called if order can not be approved. documented in this encounter [facility] 11-09-2022 History of Presen t illness Narrative Ron Bell MD Department of Orthopaedics Orthopaedics [facility] [address] [facility] [address] Dept: [phone] Dept November 09, 2022 CHIEF COMPLAINT: New [...] acute pathology. 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 Pattern Lease Inspector: KRYSTAL Transcribe Date/Time: Dec 31 2021 11:55A [...] Bronchiectasis (HCC) COPD (chronic obstructive pulmonary disease) ([facility]) Disseminated histoplasmosis Colitis, immunosuppression, 01/2018. Diverticulosis of colon (without mention of hemorrhage) Diverticulosis DVT, recurrent, lower extremity, acute ([facility]) 12/10/2014 Esophageal reflux Hiatal hernia 02/25/2018 Hypertension Lung nodule Personal history of unspecified urinary disorder 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 rheumatoid factor ([facility]) 03/07/2015 Dr. Hurley ([facility]) Unspecified hemorrhoids without mention of complication Hemorrhoids [...] SPINE FUSN,POST INTERBODY 2012 Dr. Armando at [facility]. Diskectomy and laminectomy PAST SURGICAL HISTORY [...] (FLONASE) 50 mcg/actuation nasal spray Use 1 Mountain Iron in each nostril once daily. pantoprazole DR (PROTONIX) 40 mg tablet Take 1 tablet by mouth once daily. albuterol HFA (PROAIR HFA) 90 mcg/actuation inhaler Inhale 2 Puffs as instructed every 4 hours as needed. vit A,C,O-Lrav-Xwkamd (OCUVITE PRESERVISION) 2,148 mcg-113 mg-45 mg-17.4mg tab [...] physician via US mail. Jeana Sommers [address] [facility] [address] Claudine Durán MD [address] [facility] [address] Ron Bell MD documented in this encounter [facility] 11-02-2022 Miscellaneous Notes Patient calls back and states that Ritmarily Gamboa does have prescription for coumadin. Isabella Zacarias RN Patient calling to say [facility] tells her they did not receive script for short fill Warfarin. Patient asking if it can be sent again. Pended. Melanie Mcgregor RN documented in this encounter [facility] 10-31-2022 Miscellaneous Notes Last OV: 10/27/22 [...] Charissa Perez LPN documented in this encounter [facility] 10-31-2022 Miscellaneous Notes Patient calling with request for medication/refill: Patient/caregiver requesting refill of Warfarin be called to [facility] at online.. Patient denies any new or worsening symptoms of which a provider is not aware: Yes. Patient just discovered she will run out of the below rx on . Is requesting a short term supply be sent to [email or web address] in [place] and the remainder sent to [facility]. Has been taking medication as ordered. warfarin (COUMADIN) 5 mg tablet 30 tablet 3 07/11/2022 Sig: Take 7.5 mg , Sun,Sun, Sun, Sun; and 5 mg on Sunday and Sunday Sent to pharmacy as: warfarin (COUMADIN) 5 mg tablet documented in this encounter [facility] 10-27-2022 Note HNO ID: [id number] Author: Jimbo Carias APRN.BUSINESS CONSULT Service: ? Author Type: Nurse Specialist Type: [...] bicuspid valve, lung nodule bronchiectasis and COPD. Laborer Yard: Florence Terry MD, last seen July 20, 2022. Seen for follow-up of lung nodules bronchiectasis. Noted are a likely etiology for underlying bronchiectasis. Noted new nodularity of lung, likely represents inflammatory nodules. Will need follow-up CT. No this may improve with bronchopulmonary hygiene. Spiriva and intermittent albuterol has helped with cough. Stable. Nut Tightener: William Ambriz BAV, aortic stenosis , last seen in cardiology August 29, 2022 by Rachelle Lai CNP. Continued on current treatments unchanged. Follow-up echo advised, not yet scheduled.. 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 Continues with methotrexate, Humira.seen by Dr. Roque Zacarias 06/26/2022 for RA, osteoporosis, degenerative disc disease, arthritis of foot, osteoarthritis of bilateral hands. DEXA scan completed, showed osteoporosis. All yes trying recommended restart of Reclast. Weight: stable Exercise: walking miles most days, feeling well with this . 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 [...] pain, currently taking gabapentin. Plans to see paid search specialist, referred by construction framer. Referred by construction framer to see orthopedic physician for her hip. [...] fluticasone (FLONASE) 50 mcg/actuation nasal sprayUse 1 [place] in each nostril once daily.Disp: 3 EachRfl: [...] hours as needed.Disp: 1 EachRfl: 2 vit A,C,V-Ckzx-Uwyihb (OCUVITE PRESERVISION) 2,148 mcg-113 mg-45 mg-17.4mg tabTake [...] puffs once da (more content not included)... [facility] 10-27-2022 History of Presen t illness [...] bicuspid valve, lung nodule bronchiectasis and COPD. Laborer Yard: Florence Terry MD, last seen July 20, 2022. Seen for follow-up of lung nodules bronchiectasis. Noted are a likely etiology for underlying bronchiectasis. Noted new nodularity of lung, likely represents inflammatory nodules. Will need follow-up CT. No this may improve with bronchopulmonary hygiene. Spiriva and intermittent albuterol has helped with cough. Stable. Nut Tightener: William Ambriz BAV, aortic stenosis , last seen in cardiology August 29, 2022 by Rachelel Lai CNP. Continued on current treatments unchanged. Follow-up echo advised, not yet scheduled.. 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 Continues with methotrexate, Humira.seen by [...] pain, currently taking gabapentin. Plans to see paid search specialist, referred by construction framer. Referred by construction framer to see orthopedic physician for her hip. [...] fluticasone (FLONASE) 50 mcg/actuation nasal spray^Use 1 [place] in each nostril once daily.^Disp: 3 Each^Rfl: [...] hours as needed.^Disp: 1 Each^Rfl: 2 vit A,C,R-Fcaj-Uowdou (OCUVITE PRESERVISION) 2,148 mcg-113 mg-45 mg-17.4mg tab^Take [...] positive rheumatoid factor (HCC) 03/07/2015 Dr. Hurley ([facility]) Unspecified hemorrhoids without mention of complication Hemorrhoids [...] ICD9: 724.3, ICD10: M54.41 Plans to see paid search specialist 6. Hip pain, acute, left - ICD9: 719.45, ICD10: M25.552 7. 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 rheumatoid factor (HCC) - ICD9: 714.0, ICD10: M05.79 Followed by [facility] 8. Bronchiectasis without complication (HCC) - ICD9: [...] 4 - Moderate documented in this encounter [facility] 10-27-2022 Instructions Jimbo Carias APRN.CNS - 10/27/2022 9:01 AM EDT Consider getting new COVID booster when it becomes available either in clinic or at pharmacy. documented in this encounter [facility] 10-26-2022 Note HNO ID: [id number] Author: Jimbo Carias APRN.CNS Service: ? Author Type: Nurse Specialist Type: Progress Notes Filed: 10/26/2022 4:39 PM Note Text: Continue with Coumadin dose unchanged and check INR in 2 weeks [facility] 10-26-2022 History of Presen t illness Narrative Continue with Coumadin dose unchanged and check INR in 2 weeks patient had inr completed at [facility] patients inr is 1.7 (patients inr range [...] since dose change documented in this encounter [facility] 10-26-2022 Note HNO ID: [id number] Author: Flex Means RN Service: ? Author Type: ? Type: Progress Notes Filed: 10/26/2022 4:39 PM Note Text: patient had inr completed at [facility] patients inr is 1.7 (patients inr range [...] the first normal reading since dose change [facility] 10-12-2022 Note HNO ID: [id number] Author: Maritza Preston LPN Service: ? Author Type: ? Type: Progress Notes Filed: 10/13/2022 10:06 AM Note Text: Left message to call AND speak to nurse re: Coumadin. Maritza Preston LPN [facility] 10-12-2022 Note HNO ID: [id number] Author: Jimbo Carias APRN.BUSINESS CONSULT Service: ? Author Type: Nurse Specialist Type: Progress Notes Filed: 10/13/2022 10:06 AM Note Text: Okay to change coumadin dose to 5mg Mon,Wed and 7.5mg all other days and recheck inr in 2 weeks [facility] 10-12-2022 History of Presen t illness Narrative Left message to call & speak to nurse re: Coumadin. Maritza Preston LPN Okay to change coumadin dose to 5mg Mon,Wed and 7.5mg all other days and recheck inr in 2 weeks patient had inr completed at [facility] patients inr is 1.5 (patients inr range [...] advise on recommendation documented in this encounter [facility] 10-12-2022 Note HNO ID: [id number] Author: Flex Means RN Service: ? Author Type: ? Type: Progress Notes Filed: 10/13/2022 10:06 AM Note Text: patient had inr completed at [facility] patients inr is 1.5 (patients inr range [...] 10/26/22 Please review and advise on recommendation [facility] 10-09-2022 Miscellaneous Notes Patient does not [...] you. CARMEN Viveros documented in this encounter [facility] 09-28-2022 Note HNO ID: [id number] Author: Jimbo Carias APRN.BUSINESS CONSULT Service: ? Author Type: Nurse Specialist Type: Progress Notes Filed: 09/28/2022 4:12 PM Note Text: Continue with Coumadin dose unchanged and check INR in 2 weeks [facility] 09-28-2022 Note HNO ID: [id number] Author: Flex Means RN Service: ? Author Type: ? Type: Progress Notes Filed: 09/28/2022 4:12 PM Note Text: patient had inr completed at [facility] patients inr is 1.8 (patients inr range [...] the first normal reading since dose change [facility] 09-25-2022 Miscellaneous Notes Called PT and [...] Thanks ~ JJ documented in this encounter [facility] 09-15-2022 Miscellaneous Notes Pt called and [...] and pt findings. documented in this encounter [facility] 09-07-2022 Note HNO ID: [id number] Author: Flex Means RN Service: ? Author Type: ? Type: Progress Notes Filed: 09/07/2022 4:08 PM Note Text: PATIENT NOTIFIED OF INFORMATION [facility] 09-07-2022 Note HNO ID: [id number] Author: Jimbo Carias APRN.BUSINESS CONSULT Service: ? Author Type: Nurse Specialist Type: Progress Notes Filed: 09/07/2022 4:08 PM Note Text: Okay for 5 mg Coumadin Sunday and 7.5 mg all other days. Recheck INR in 1 week [facility] 09-07-2022 History of Presen t illness Narrative PATIENT NOTIFIED OF INFORMATION Okay for 5 mg Coumadin Sunday and 7.5 mg all other days. Recheck INR in 1 week patient had inr completed at [facility] patients inr is 2.4 (patients inr range [...] 3 weeks patient has been scheduled at [facility] for an inr follow up 09/14/22 (order is already in place) please review and advise on recommendation documented in this encounter [facility] 09-07-2022 Note HNO ID: [id number] Author: Flex Means RN Service: ? Author Type: ? Type: Progress Notes Filed: 09/07/2022 4:08 PM Note Text: patient had inr completed at [facility] patients inr is 2.4 (patients inr range [...] 3 weeks patient has been scheduled at [facility] for an inr follow up 09/14/22 (order is already in place) please review and advise on recommendation [facility] 08-29-2022 Note HNO ID: [id number] Author: Rachelle Lai APRN.CNP Service: ? Author Type: Nurse Practitioner Type: Progress Notes Filed: 09/11/2022 10:01 AM Note Text: [facility] Department of Cardiovascular Medicine SECTION [...] which included preparing to see the patient, [id number] patient care, completing clinical documentation, performing a [...] prior to the follow up. Rachelle Lai APRN.[facility] Cardiology Nurse Practitioner Section of [facility] Cardiology [facility] Dept of Cardiovascular Medicine [facility] Heart and [facility] [place] [id number] Office Office August 29, 2022 7:46 AM This note was partially generated using Voxie voice recognition system and may contain errors [...] has progressed. :5 (more content not included)... [facility] 08-29-2022 Instructions Rachelle Lai APRN.CNP - [...] in 6 months documented in this encounter [facility] 08-29-2022 History of Presen t illness Narrative Images from the original note were not included. [facility] Department of Cardiovascular Medicine SECTION [...] which included preparing to see the patient, [id number] patient care, completing clinical documentation, performing a [...] prior to the follow up. Rachelle Lai APRN.[facility] Cardiology Nurse Practitioner Section of Regional Cardiology [facility] Dept of Cardiovascular Medicine [facility] [address] [place] [address] Office Office August 29, 2022 7:46 AM This note was partially generated using SolarNOW recognition system and may contain errors related [...] nodule with faint calcifications suggesting calcified granuloma. Pattern Lease Inspector: PSCB Transcribe Date/Time: Jul 24 2022 10:02A [...] Anemia Bone marrow involvement with histoplasmosis Bronchiectasis ([facility]) COPD (chronic obstructive pulmonary disease) ([facility]) Disseminated histoplasmosis Colitis, immunosuppression, 01/2018. Diverticulosis of colon (without mention of hemorrhage) Diverticulosis DVT, recurrent, lower extremity, acute ([facility]) 12/10/2014 Esophageal reflux Hiatal hernia 02/25/2018 Hypertension Lung nodule Personal history of unspecified urinary disorder 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 rheumatoid factor ([facility]) 03/07/2015 Dr. Hurley ([facility]) Unspecified hemorrhoids without mention of complication Hemorrhoids [...] and ROS obtained by others. Rachelle Lai, WAREHOUSE RECEIVER.PATIENT RESOURCE COORDINATOR CURRENT MEDICATIONS: Current Outpatient Medications Medication Sig budesonide-formoterol (SYMBICORT) 160-4.5 mcg/actuation inhaler Inhale 2 Puffs as instructed twice daily. fluticasone (FLONASE) 50 mcg/actuation nasal spray Use 1 Mountain Iron in each nostril once daily. warfarin (COUMADIN) 5 mg tablet Take 7.5 mg , Sun,Sun, Sun, Sun; and 5 mg on Sunday and Sunday pantoprazole DR (PROTONIX) 40 mg tablet Take 1 tablet by mouth once daily. albuterol HFA (PROAIR HFA) 90 mcg/actuation inhaler Inhale 2 Puffs as instructed every 4 hours as needed. vit A,C,W-Cpdf-Gxomki (OCUVITE PRESERVISION) 2,148 mcg-113 mg-45 mg-17.4mg tab [...] INTRAVENOUS DIRECTED PRN documented in this encounter [facility] 08-15-2022 Miscellaneous Notes GEREMIAS 07/20/22 Patient phones requesting refills as follows: Requested Prescriptions Pending Prescriptions Disp Refills budesonide-formoterol (SYMBICORT) 160-4.5 mcg/actuation inhaler Sig: Inhale as instructed twice daily. Please review and advise. Magalie Ngo LPN documented in this encounter [facility] 08-13-2022 Miscellaneous Notes Glad doing better. Thanks for update. Pt calls office /c update. She states she is on her 4th day of prednisone and she is feeling much better, feeling great. She states her pain is cut in half now. Bakari Catalan LPN documented in this encounter [facility] 08-10-2022 Note HNO ID: [id number] Author: Maritza Preston LPN Service: ? Author Type: ? Type: Progress Notes Filed: 08/10/2022 4:48 PM Note Text: Left below on identified vm, asked Patient to call back to let the office know she did receive. Maritza Preston LPN [facility] 08-10-2022 Note HNO ID: [id number] Author: Jimbo Carias APRN.BUSINESS CONSULT Service: ? Author Type: Nurse Specialist Type: Progress Notes Filed: 08/10/2022 4:48 PM Note Text: Continue with Coumadin dose unchanged and check INR in 4 weeks [facility] 08-10-2022 Note HNO ID: [id number] Author: Flex Means RN Service: ? Author Type: ? Type: Progress Notes Filed: 08/10/2022 4:48 PM Note Text: patient had inr completed at [facility] patients inr is 2.1 (patients inr range [...] 4 weeks (09/07/22) for follow up INR. [facility] 07-27-2022 Note HNO ID: [id number] Author: Maritza Preston LPN Service: ? Author Type: ? Type: Progress Notes Filed: 07/27/2022 3:20 PM Note Text: Below left on identified vm. Patient is already scheduled in 2 weeks. Maritza Preston LPN [facility] 07-27-2022 Note HNO ID: [id number] Author: Jimbo Carias APRN.BUSINESS CONSULT Service: ? Author Type: Nurse Specialist Type: Progress Notes Filed: 07/27/2022 3:20 PM Note Text: Continue with current dosing and check INR 2 weeks [facility] 07-27-2022 Note HNO ID: [id number] Author: Flex Means RN Service: ? Author Type: ? Type: Progress Notes Filed: 07/27/2022 3:20 PM Note Text: patient had inr completed at [facility] patients [facility] is [facility].7 [facility]2.2[facility] patient [...] the first normal reading since dose change [facility] 07-20-2022 Note HNO ID: [id number] Author: Florence Terry MD Service: ? Author Type: Physician Type: Progress Notes Filed: 07/25/2022 12:42 PM Note Text: . [facility] Note Patient name: Haydee Bustamante PCP: Claudine Durán MD CC: Follow-up chest CT HPI: Haydee Bustamante 77 year old female former 10 pack year smoker with PMH significant for RA (MTX, Humira), HTN, h/o disseminated Histoplasmosis, bronchiectasis, , VTE, pulmonary nodules, who presents for follow-up. Current inhaled therapy with Symbicort and Spiriva. At [facility] with ar, she was a new patient to ar formerly followed by Dr. Andujar. She had [...] DATE OF EXAM: Jul 20 2022 9:22AM [facility] 0541 - CT CHEST WO IVCON [...] abdomen within the limits of noncontrast technique.. Plant Superintendent (topogram) images: IVC filter present IMPRESSION: Findings [...] prominent, not pathologi (more content not included)... [facility] 07-20-2022 Note HNO ID: [id number] Author: RT Edwin(R) Service: ? Author Type: Lunch Cook Type: Progress Notes Filed: 07/20/2022 9:35 AM [...] RT Maryann(R) July 20, 2022 9:35 AM [facility] 07-20-2022 History of Presen t illness Narrative Images from the original note were not included. . [facility] Note Patient name: Haydee Bustamante PCP: Claudine Durán MD CC: Follow-up chest CT HPI: Haydee Bustamante 77 year old female former 10 pack year smoker with PMH significant for RA (MTX, Humira), HTN, h/o disseminated Histoplasmosis, bronchiectasis, , VTE, pulmonary nodules, who presents for follow-up. Current inhaled therapy with Symbicort and Spiriva. At [facility] with me, she was a new [...] DATE OF EXAM: Jul 20 2022 9:22AM [facility] 0541 - CT CHEST WO IVCON [...] abdomen within the limits of noncontrast technique.. 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 Hurley ([facility]) Unspecified hemorrhoids without mention of complication Hemorrhoids [...] hours as needed.^Disp: 1 Each^Rfl: 2 vit A,C,J-Yuvu-Sglxym (OCUVITE PRESERVISION) 2,148 mcg-113 mg-45 mg-17.4mg tab^Take [...] fluticasone (FLONASE) 50 mcg/actuation nasal spray^Use 1 Mountain Iron in each nostril once daily.^Disp: 3 Each^Rfl: [...] SPINE FUSN,POST INTERBODY 2012 Dr. Armando at [facility]. Diskectomy and laminectomy PAST SURGICAL HISTORY [...] her underlying bronchiectasis Florence Terry MD [facility] documented in this encounter [facility] 07-20-2022 History of Presen t illness [...] 2022 9:35 AM documented in this encounter [facility] 07-13-2022 Note HNO ID: [id number] Author: Flex Means RN Service: ? Author Type: ? Type: Progress Notes Filed: 07/13/2022 4:39 PM Note Text: pcp agrees with information PATIENT NOTIFIED OF INFORMATION [facility] 07-13-2022 Note HNO ID: [id number] Author: Flex Means RN Service: ? Author [...] 2 week inr follow up inr 07/27/22 [facility] 07-11-2022 Note HNO ID: [id number] Author: Jimbo Carias APRN.BUSINESS CONSULT Service: ? Author Type: Nurse Specialist Type: [...] and COPD. 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 States that ground crew chief discussed possible amputation of toe but would prefer not to go that route. May see an alternate ground crew chief at [facility]. Weight: stable Exercise: walking miles most days, feeling well with this . 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 Noted macular degeneration, a Raynaud's 2 daily advised 1 year follow-up with eye doctor. Since last seen she has gone to [facility], seen by Dr. Roque Zacarias 06/26/2022 for RA, osteoporosis, degenerative disc disease, arthritis of foot, osteoarthritis of bilateral hands. 3 mo follow up and Dexa advised. Has new shoes from Rani Cowart at [facility] / [employer]. Notes foot surgery and healed foot wound. 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 Last seen by Dr. Ambriz 07/2021 for [...] ALLERGIES Allergen Reactions Penicillins Hives Medications vit A,C,E-Qbpc-Sglxmi (OCUVITE PRESERVISION) 2,148 mcg-113 mg-45 mg-17.4mg tabTake [...] fluticasone (FLONASE) 50 mcg/actuation nasal sprayUse 1 Mountain Iron in each nostril once daily.Disp: 3 EachRfl: 3 tiotropium bromide (SPIRIVA RESPIMAT) 2.5 mcg/actuation inhalerInhale 2 Puffs as instructed once daily. Inhale two puffs once daily.Disp: 3 EachRfl: 3 Irbesartan-hydroCHLOROthiazide 150-12.5 mg per tabletTake 1 tablet by mouth once daily.Disp: 90 tabletRfl: 3 SYMBICORT 160-4.5 mcg/actuation inhalerUSE 2 INHALATIONS TWICE A DAY INSTRUCT (more content not included)... [facility] 06-29-2022 Note HNO ID: [id number] Author: Jimbo Carias APRN.BUSINESS CONSULT Service: ? Author Type: Nurse Specialist Type: Progress Notes Filed: 06/29/2022 2:16 PM Note Text: Continue with Coumadin dosing unchanged and check INR in 2 weeks [facility] 06-29-2022 History of Presen t illness Narrative Continue with Coumadin dosing unchanged and check INR in 2 weeks patient had inr completed at [facility] patients inr is 2.1 (patients inr range [...] since dose change documented in this encounter [facility] 06-29-2022 Note HNO ID: [id number] Author: Flex Means RN Service: ? Author Type: ? Type: Progress Notes Filed: 06/29/2022 2:16 PM Note Text: patient had inr completed at [facility] patients inr is 2.1 (patients inr range [...] the first normal reading since dose change [facility] 06-22-2022 Note HNO ID: [id number] Author: Maritza Preston LPN Service: ? Author Type: ? Type: Progress Notes Filed: 06/22/2022 3:37 PM Note Text: Patient notified of change in dosage, verbalized understanding. Anticoag Tracker updated. Maritza Preston LPN [facility] 06-22-2022 Note HNO ID: [id number] Author: Jimbo Carias APRN.BUSINESS CONSULT Service: ? Author Type: Nurse Specialist Type: Progress Notes Filed: 06/22/2022 3:37 PM Note Text: Coumadin 5 mg today and tomorrow then 5 mg Gil Wedsunday and 7.5 mg all other days. Recheck INR in 1 week [facility] 06-22-2022 Note HNO ID: [id number] Author: Flex Means RN Service: ? Author Type: ? Type: Progress Notes Filed: 06/22/2022 3:37 PM Note Text: patient had inr completed at [facility] patients inr is 2.9 (patients [...] 1 week follow up inr on 06/29/22 [facility] 06-09-2022 Note HNO ID: [id number] Author: Flex Means RN Service: ? Author Type: ? Type: Progress Notes Filed: 06/09/2022 4:06 PM Note Text: pcp agrees [facility] 06-09-2022 Note HNO ID: [id number] Author: Flex Means RN Service: ? Author [...] INR since coumadin is just slight under [facility] 05-23-2022 Miscellaneous Notes Noted Message left [...] rescheduled. Lani from Dr Rani Cowart's office [facility] states they received a signed clearance from [...] is scheduled for surgery tomorrow morning. PH: [phone] X [phone] FAX: [phone]. Maricarmen Jacobs LPN documented in this encounter [facility] 05-04-2022 Note HNO ID: [id number] Author: Jimbo Carias APRN.TYLOR Service: ? Author Type: Nurse Specialist Type: Progress Notes Filed: 05/04/2022 3:52 PM Note Text: Continue Coumadin dose unchanged and check INR in 1 month [facility] 05-04-2022 History of Presen t illness Narrative Continue Coumadin dose unchanged and check INR in 1 month patient had inr completed at [facility] patients inr is 2.0 (patients inr range [...] follow up INR. documented in this encounter [facility] 05-04-2022 Note HNO ID: [id number] Author: Flex Means RN Service: ? Author Type: ? Type: Progress Notes Filed: 05/04/2022 3:52 PM Note Text: patient had inr completed at [facility] patients inr is 2.0 (patients inr range [...] 1 month (06/08/22) for follow up INR. [facility] 04-06-2022 Note HNO ID: [id number] Author: Jimbo Carias APRN.CNS Service: ? Author Type: Nurse Specialist Type: Progress Notes Filed: 04/06/2022 3:05 PM Note Text: Continue with Coumadin dose unchanged and check INR in 4 weeks [facility] 04-06-2022 History of Presen t illness Narrative Continue with Coumadin dose unchanged and check INR in 4 weeks patient had inr completed at [facility] patients inr is 2.0 (patients inr range [...] follow up INR. documented in this encounter [facility] 04-06-2022 Note HNO ID: [id number] Author: Flex Means RN Service: ? Author Type: ? Type: Progress Notes Filed: 04/06/2022 3:05 PM Note Text: patient had inr completed at [facility] patients inr is 2.0 (patients inr range [...] 4 weeks (05/04/22) for follow up INR. [facility] 03-30-2022 Note HNO ID: [id number] Author: Flex Means RN Service: ? Author Type: ? Type: Progress Notes Filed: 03/30/2022 3:57 PM Note Text: PATIENT NOTIFIED OF INFORMATION via detailed message [facility] 03-30-2022 History of Presen t illness [...] inr on 04/06/[address] encounter [facility] 03-30-2022 Note HNO ID: [id number] Author: Jimbo Carias APRN.CNS Service: ? Author Type: Nurse Specialist Type: Progress Notes Filed: 03/30/2022 3:57 PM Note Text: Coumadin 5 mg today then resume previous dosing -5 mg Sunday and 7.5 mg all other days and check INR in 1 week [facility] 03-30-2022 Note HNO ID: [id number] Author: Flex Means RN Service: ? Author Type: ? Type: Progress Notes Filed: 03/30/2022 3:57 PM Note Text: patient had inr completed at [facility] patients inr is 2.3 (patients inr range [...] 1 week follow up inr on 04/06/22 [facility] 03-13-2022 History of Presen t illness Narrative This note was created using Cueriter. Subjective Haydee Bustamante is a 76 year old female. Patient presents with: 4 month follow up SUBJECTIVE: Haydee Bustamante is a 76 year old year old lady here today for 4 month follow up appointment for review of medical conditions. Following with eye doctor. Has early macular degeneration. Given glasses for it. Having foot surgery at [facility] May 19. Told will be extensive--straighten all [...] Anemia Bone marrow involvement with histoplasmosis Bronchiectasis ([facility]) COPD (chronic obstructive pulmonary disease) ([facility]) Disseminated histoplasmosis Colitis, immunosuppression, 01/2018. Diverticulosis of colon (without mention of hemorrhage) Diverticulosis DVT, recurrent, lower extremity, acute ([facility]) 12/10/2014 Esophageal reflux Hiatal hernia 02/25/2018 Hypertension Personal history of unspecified urinary disorder 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 rheumatoid factor ([facility]) 03/07/2015 Dr. Hurley ([facility]) Unspecified hemorrhoids without mention of complication Hemorrhoids Current Outpatient Medications Medication Sig naproxen (NAPROSYN) 500 mg tablet Take 1 tablet by mouth twice daily as needed. Take with food gabapentin (NEURONTIN) 300 mg capsule Take 1 capsule by mouth twice daily. fluticasone (FLONASE) 50 mcg/actuation nasal spray Use 1 Mountain Iron in each nostril once daily. tiotropium bromide [...] factor (HCC) M05.79 5. COPD without exacerbation ([facility]) J44.9 6. Bronchiectasis without complication ([facility]) J47.9 7. 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 Noted that has not needed bridging Lovenox when has been off coumadin. Continue present management with anticoagulation. .BP controlled. Continue present management. Claudine Durán MD documented in this encounter [facility] 02-02-2022 History of Presen t illness Narrative Continue with Coumadin dose unchanged check INR in 4 weeks patient had inr completed at [facility] patients inr is 2.0 (patients inr range [...] follow up INR. documented in this encounter [facility] 01-17-2022 Miscellaneous Notes Last office visit: 11/10/21 Next appointment scheduled: 03/13/22 Patient phones requesting refills as follows: Requested Prescriptions Pending Prescriptions Disp Refills naproxen (NAPROSYN) 500 mg tablet 120 tablet 3 Sig: Take 1 tablet by mouth twice daily as needed. Take with food Please review and advise. Geni Cintron LPN documented in this encounter [facility] 01-11-2022 Miscellaneous Notes Spoke with pt and information listed below given. Pt verbalizes understanding. She will get the labs when they are due. Lynne Mann LPN Patient gets labs done for construction framer so labs are up to date The [...] Lynne Mann LPN documented in this encounter [facility] 01-05-2022 History of Presen t illness Narrative per dr haynes he agrees with information patient had inr completed at [facility] patients inr is 2.2 (patients inr range [...] follow up INR. documented in this encounter [facility] 12-22-2021 History of Presen t illness Narrative PATIENT NOTIFIED OF INFORMATION Recommend Coumadin 7.5 mg today. Then resume usual dosing 5 mg Sunday and 7.5 mg all other days. Check INR 2 weeks patient had inr completed at [facility] patients inr is 1.4 (patients inr range [...] inr on 01/05/22 [address] encounter [facility] 11-29-2021 History of Presen t illness Narrative Images from the original note were not included. . Respiratory [facility] Note Patient name: Haydee Bustamante PCP: Claudine Durán MD CC: Follow-up lung disease HPI: Haydee Bustamante 76 year old female former [id number] smoker having quit in 1989 with PMH [...] Bronchiectasis (HCC) COPD (chronic obstructive pulmonary disease) ([facility]) Disseminated histoplasmosis Colitis, immunosuppression, 01/2018. Diverticulosis of colon (without mention of hemorrhage) Diverticulosis DVT, recurrent, lower extremity, acute ([facility]) 12/10/2014 Esophageal reflux Hiatal hernia 02/25/2018 Hypertension Personal history of unspecified urinary disorder 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 rheumatoid factor ([facility]) 03/07/2015 Dr. Hurley ([facility]) Unspecified hemorrhoids without mention of complication Hemorrhoids ALLERGIES Allergen Reactions Penicillins Hives fluticasone (FLONASE) 50 mcg/actuation nasal spray^Use 1 Mountain Iron in each nostril once daily.^Disp: 3 Each^Rfl: [...] SPINE FUSN,POST INTERBODY 2012 Dr. Armando at [facility]. Diskectomy and laminectomy PAST SURGICAL HISTORY [...] treatment per rheumatology Florence Terry MD Respiratory [facility] documented in this encounter [facility] 11-24-2021 Miscellaneous Notes error documented in this encounter [facility] 11-10-2021 History of Presen t illness [...] and COPD. 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 States that ground crew chief discussed possible amputation of toe but would prefer not to go that route. May see an alternate ground crew chief at [facility]. States took blood pressure medication today. 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 OAC: no bleeding difficulties. Occasional bruising. 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 Diverticulosis of colon (without mention of hemorrhage) Diverticulosis DVT, recurrent, lower extremity, acute ([facility]) 12/10/2014 Esophageal reflux Hiatal hernia 02/25/2018 Hypertension Personal history of unspecified urinary disorder 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 rheumatoid factor ([facility]) 03/07/2015 Dr. Hurley ([facility]) Unspecified hemorrhoids without mention of complication Hemorrhoids [...] Abs Lymph 1.00 - 4.00 k/uL 1.64 Sabine% % 8.0 Abs Sabine <0.87 k/uL 0.60 Eosin% % 2.7 Abs [...] (HCC) - ICD9: 496, ICD10: J44.9 - [id number] BL 3. Encounter for immunization - ICD9: V03.89, ICD10: Z23 - [employer] COVID-19 BIVALENT BOOSTER VACCINE, AGE 12+ YR - INFLUENZA SEASONAL QUADRIVALENT HIGH DOSE AGE 65+ 4. Gastroesophageal reflux disease without esophagitis - ICD9: 530.81, ICD10: K21.9 5. Bronchiectasis without complication (HCC) - ICD9: 494.0, ICD10: J47.9 6. COPD without exacerbation (HCC) - ICD9: 496, ICD10: J44.9 7. Aortic stenosis with bicuspid valve - ICD9: 746.3, 746.4, ICD10: Q23.0, Q23.1 Jimbo Carias APRN.BUSINESS CONSULT] Jimbo Carias APRN.CNS Medical Decision Making: Problems: Moderate: 1+ chronic illnesses with change and 2+ stable chronic illnesses Risk: Moderate: Drug management Medical Decision Making Level: 4 - Moderate documented in this encounter [facility] 11-09-2021 Miscellaneous Notes Filed order patients orders for coumadin clinic inr's has at this time. new order has been pended for approval if possible so that patient can continue to get inr's completed thru the coumadin clinic. coumadin clinic nurse only needs called if order can not be approved. documented in this encounter [facility] 11-08-2021 Miscellaneous Notes Patient has been [...] Ruby Tobin RN documented in this encounter [facility] 11-01-2021 Instructions Yonas Louise - 11/01/2021 9:29 AM EDT Your ulceration is now healed Ok to continue with padding as needed F/u as needed documented in this encounter [facility] 11-01-2021 History of Presen t illness [...] positive rheumatoid factor (HCC) 03/07/2015 Dr. Hurley ([facility]) Unspecified hemorrhoids without mention of complication Hemorrhoids [...] (FLONASE) 50 mcg/actuation nasal spray Use 1 Mountain Iron in each nostril once daily. (Patient not [...] SPINE FUSN,POST INTERBODY 2012 Dr. Armando at [facility]. Diskectomy and laminectomy PAST SURGICAL HISTORY [...] stopped wrapping it. documented in this encounter [facility] 10-27-2021 History of Presen t illness Narrative patient had inr completed at [facility] patients inr is 1.6 (patients inr range [...] follow up INR. documented in this encounter [facility] 10-18-2021 Instructions Yonas Louise - 10/18/2021 9:[address] aquacel on ulceration daily Place lambs wool or guaze horizontally between the interspace Secure lambs wool or guaze with blanca wrap or tape Wear surgical shoe or wide sneaker or even sandal to avoid pressure on 5th toe documented in this encounter [facility] 10-18-2021 History of Presen t illness [...] hemorrhage) Diverticulosis DVT, recurrent, lower extremity, acute ([facility]) 12/10/2014 Esophageal reflux Hiatal hernia 02/25/2018 Hypertension Personal history of unspecified urinary disorder 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 rheumatoid factor ([facility]) 03/07/2015 Dr. Hurley ([facility]) Unspecified hemorrhoids without mention of complication Hemorrhoids [...] (FLONASE) 50 mcg/actuation nasal spray Use 1 Mountain Iron in each nostril once daily. (Patient not [...] SPINE FUSN,POST INTERBODY 2011 Dr. Armando at [facility]. Diskectomy and laminectomy PAST SURGICAL HISTORY [...] thickness Yonas Louise DPM Podiatry [address] [facility] [address] Dept: [phone] Dept AMB ROOMING INTAKE FLOWSHEET DATA Pain Pain Level: 4 Pain Location: Toe Description: Sharp, Raw, Sore Duration Amount of Time: 2 Duration Units: Months Frequency: Intermittent Intervention/Comfort measure: Reposition, Relaxation Patient presents with: Right Foot - Established Patient, Follow Up, Pain, Blister Imelda Quijano LPN documented in this encounter [facility] 10-18-2021 Miscellaneous Notes Pt only has [...] Muna Porter RN documented in this encounter [facility] 10-12-2021 History of Presen t illness [...] 2021 10:06 AM documented in this encounter [facility] 10-12-2021 History of Presen t illness [...] 2021 9:56 AM documented in this encounter [facility] 09-29-2021 History of Presen t illness Narrative Continue current Coumadin dose unchanged and check INR in 4 weeks patient had inr completed at [facility] patients inr is 2.0 (patients inr range [...] follow up INR. documented in this encounter [facility] 09-20-2021 Instructions Jimbo Carias APRN.CNS - 09/20/2021 1:55 PM EDT Keep your toe clean dry and . Was with soap and water daily, dry thoroughly. Use lambswool between toes. Avoid tight shoes documented in this encounter [facility] 09-20-2021 History of Presen t illness [...] and COPD. 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 Histoplasmosis: notes resolved symptoms. OAC: no bleeding difficulties. Occasional bruising. Spiriva and intermittent albuterol has helped with cough. Presents today for foot lesion. She notes she is been wearing tight shoes for a [email or web address] production at [facility] for about a month. She notes [...] (FLONASE) 50 mcg/actuation nasal spray Use 1 Mountain Iron in each nostril once daily. econazole (SPECTAZOLE) [...] positive rheumatoid factor (HCC) 03/07/2015 Dr. Hurley ([facility]) Unspecified hemorrhoids without mention of complication Hemorrhoids [...] Abs Lymph 1.00 - 4.00 k/uL 1.64 Sabine% % 8.0 Abs Sabine <0.87 k/uL 0.60 Eosin% % 2.7 Abs [...] 3 - Low documented in this encounter [facility] 09-05-2021 Miscellaneous Notes September 05, 2021 PID: [id number] Haydee Bustamante [address] [place] [address] Dear Ms. Bustamante, Your recent breast imaging exam on 09/05/2021 showed a possible finding that requires additional imaging studies for a complete evaluation. Most such findings are probably benign (not cancer). If you have a healthcare provider who ordered/prescribed your screening mammogram: Please call [phone] or [phone]: [phone] to schedule an appointment for your additional [...] and reports are kept on file at [facility] as part of your permanent medical record, and are available for your continuing care. Thank you for allowing us to help in meeting your health care needs. Sincerely, Dr. Bell Interpreting Radiologist [facility] (Additional imaging) documented in this encounter [facility] 09-05-2021 History of Presen t illness [...] DATA: Not applicable SIGNED BY: Emi Gloria [employer] September 05, 2021 9:28 AM documented in this encounter [facility] 08-23-2021 History of Presen t illness Narrative per verbal order by electronics test engineer provider dr rowell she agrees with information patient had inr completed at [facility] patients inr is 2.2 (patients inr range [...] follow up INR. documented in this encounter [facility] 08-12-2021 History of Presen t illness Narrative Images from the original note were not included. [facility] SECTION OF REGIONAL CARDIOLOGY [facility] OUTPATIENT VISIT DATE August 12, 2021 PRIMARY CARE PHYSICIAN: Claudine Durán [address] [place] [address] HISTORY OF PRESENT ILLNESS: Ms. Bustamante is a 76 year old female. The patient returns for follow-up due to history of known bicuspid aortic valve stenosis. Previous stenosis has been evaluation as showed this to be mild. Additional history includes hypertension. 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 She is planning on doing [email or web address] again this summer. She denies chest discomfort, [...] positive rheumatoid factor (HCC) 03/07/2015 Dr. Hurley ([facility]) Unspecified hemorrhoids without mention of complication Hemorrhoids [...] SPINE FUSN,POST INTERBODY 2011 Dr. Armando at [facility]. Diskectomy and laminectomy PAST SURGICAL HISTORY [...] (FLONASE) 50 mcg/actuation nasal spray Use 1 Mountain Iron in each nostril once daily. econazole (SPECTAZOLE) [...] Department of Medicine and Division of Cardiology, [facility] Project Engineering Managerentry level finance [facility] Project Engineering Manager of Congestive Heart Failure Clinic [facility] Cardiology Office Project Engineering Manager [facility] Staff Nut Tightener, [place] and Edilma Pierce Department of Cardiovascular Medicine/Heart and Vascular [place], [facility] Clinical Chiropractor Assistant Profressor of Medicine, [facility] Please note: This note has been produced using speech recognition software and may contain errors related to that system including madelyn, punctuation, spelling, words, gender and phrases that may be inappropriate. documented in this encounter [facility] 07-29-2021 Miscellaneous Notes Pharmacy faxed requesting the following refill. Pending Prescriptions Disp Refills SYMBICORT 160 MCG-4.5 MCG/ACTUATION HFA AEROSOL INHALER 30.6 g 4 Sig: USE 2 INHALATIONS TWICE A DAY INSTRUCTED YULIANA: Yes Patient last appointment: [address] [place] [address] Andujar Patient Phone numbers: [phone] (home) Request is for script(s) to be escript to pharmacy. Nahomy Mercado documented in this encounter [facility] 07-25-2021 History of Presen t illness Narrative pcp agrees with information patient had inr completed at [facility] patients inr is 1.8 (patients inr range [...] follow up INR. documented in this encounter [facility] 07-11-2021 History of Presen t illness Narrative This note was created using Cueriter. Subjective Haydee Bustamante is a 76 year [...] toe surgery for now--has show. 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 Noted fell when missed top step. [...] positive rheumatoid factor (HCC) 03/07/2015 Dr. Hurley ([facility]) Unspecified hemorrhoids without mention of complication Hemorrhoids [...] (FLONASE) 50 mcg/actuation nasal spray Use 1 Mountain Iron in each nostril once daily. econazole (SPECTAZOLE) [...] Abs Lymph 1.00 - 4.00 k/uL 1.64 Sabine% % 8.0 Abs Sabine <0.87 k/uL 0.60 Eosin% % 2.7 Abs [...] vaccine - ICD9: V04.89, ICD10: Z23 - B[employer]ate COVID-19 VACCINE, AGE 12+ YR (ARIAS TOP) 6. COPD without exacerbation (HCC) - ICD9: 496, ICD10: J44.9 Continue present management. Discussed Dr. Andujar's instructions to use albuterol before activity that causes coughing 7. Bronchiectasis without complication (HCC) - ICD9: 494.0, ICD10: J47.9 As noted above. Fall discussed. Arthritis discussed. Claudine Durán MD documented in this encounter [facility] 06-30-2021 History of Presen t illness Narrative inSight CDM Engagement Provider Action/FYI: Spk with Pt she denies new or worsening COPD symptoms or needs. Pt plans to have her Covid Booster at upcoming Appt with 07/11/21 Contact Made with Patient: Yes Patient identified by name and . Discussed care with patient Shante venegas name is Katarzyna Malcolm RN your Lead Miner Blasting from Claudine Durán MD office at the [facility]. I am reaching out today because [...] Bustamante. This is Katarzyna Malcolm RN your Lead Miner Blasting from the [facility]. I am calling to check in with you concerning the MyChart questionnaire you have been receiving from me. I will call you again tomorrow and am looking forward to speaking with you. (Lead Miner Blasting enters next day in next patient outreach ) Katarzyna Malcolm RN June 29, 2021 3:31 PM documented in this encounter [facility] 06-09-2021 History of Presen t illness Narrative per electronics test engineer provider dr garza patient is to continue same dose PATIENT NOTIFIED OF INFORMATION patient had inr completed at [facility] patients inr is 1.6 (patients inr range [...] follow up INR. documented in this encounter [facility] 06-06-2021 Miscellaneous Notes GEREMIAS: 03/14/2021 Last [...] Sergey Ramirez Ma documented in this encounter [facility] 2021 Instructions Julio Andujar MD - [...] I am retiring from the staff of [facility] and the practice of Medicine on [...] Johanna Benites PA-C. documented in this encounter [facility] 2021 History of Presen t illness Narrative [facility] Respiratory [place], 2021: Name: Haydee Bustamante : 1945 INTERVAL [...] months, sooner if needed. Julio Andujar MD, [facility] Respiratory [place] [facility] [address] [place] [id number] P: [phone] F: [phone] [email or web address] documented in this encounter [facility] 05-26-2021 History of Presen t illness Narrative electronics test engineer provider agrees with information patient had inr completed at [facility] patients inr is 1.6 (patients inr range [...] just slightly low documented in this encounter [facility] 05-20-2021 History of Presen t illness [...] 2021 2:45 PM documented in this encounter [facility] 03-14-2021 History of Presen t illness Narrative This note was created using Gogiro. Subjective Haydee Bustamante is a 75 year [...] positive rheumatoid factor (HCC) 03/07/2015 Dr. Hurley ([facility]) Unspecified hemorrhoids without mention of complication Hemorrhoids [...] (FLONASE) 50 mcg/actuation nasal spray Use 1 Mountain Iron in each nostril once daily. potassium chloride [...] good control - Follows with Dr. Ambriz ([facility] cardiology) - Continue current medication(s) [...] 714.0, ICD10: M05.79 Stable on meds through [facility]--Dr. Hurley Gets labs through his office. Lipid ordered. I spent a total of at least 30 minutes on the date of the service which included [id number] patient care, completing clinical documentation, obtaining and/or reviewing separately obtained history, performing a medically appropriate examination, counseling and educating the patient/family/caregiver and ordering medications, tests, or procedures. Claudine Durán MD documented in this encounter [facility] documented as of this encounter (statuses as of 05/20/2021) [facility] History of Past illness Narrative* Problem [...] of this encounter (statuses as of 05/22/2021) [facility] of Past illness Narrative* Problem [...] of this encounter (statuses as of 05/26/2021) [facility] of Past illness Narrative* Problem [...] of this encounter (statuses as of 06/06/2021) [facility] of Past illness Narrative* Problem [...] of this encounter (statuses as of 06/09/2021) [facility] History of Past illness Narrative* Problem [...] of this encounter (statuses as of 06/30/2021) [facility] History of Past illness Narrative* Problem [...] of this encounter (statuses as of 07/25/2021) [facility] of Past illness Narrative* Problem [...] of this encounter (statuses as of 08/01/2021) [facility] of Past illness Narrative* Problem [...] of this encounter (statuses as of 08/12/2021) [facility] of Past [facility] Narrative* Problem [...] of this encounter (statuses as of 08/23/2021) [facility] Past [facility] Narrative* Problem [...] of this encounter (statuses as of 09/06/2021) [facility] of Past [facility] Narrative* Problem [...] of this encounter (statuses as of 09/06/2021) [facility] Past [facility] Narrative* Problem [...] of this encounter (statuses as of 09/07/2021) [facility] Narrative* Problem [...] of this encounter (statuses as of 09/20/2021) [facility] Narrative* Problem [...] of this encounter (statuses as of 09/29/2021) [facility] Past [facility] Narrative* Problem [...] of this encounter (statuses as of 10/13/2021) [facility] Narrative* Problem [...] of this encounter (statuses as of 10/13/2021) [facility] Narrative* Problem [...] of this encounter (statuses as of 10/18/2021) [facility] Narrative* Problem [...] of this encounter (statuses as of 10/18/2021) [facility] Narrative* Problem [...] of this encounter (statuses as of 10/19/2021) [facility] Narrative* Problem [...] of this encounter (statuses as of 10/27/2021) [facility] Narrative* Problem [...] of this encounter (statuses as of 11/01/2021) [facility] Narrative* Problem [...] of this encounter (statuses as of 11/08/2021) [facility] Narrative* Problem [...] of this encounter (statuses as of 11/10/2021) [facility] Narrative* Problem [...] of this encounter (statuses as of 11/10/2021) [facility] Narrative* Problem [...] of this encounter (statuses as of 11/29/2021) [facility] Narrative* Problem [...] of this encounter (statuses as of 12/04/2021) [facility] Narrative* Problem [...] of this encounter (statuses as of 12/22/2021) [facility] Narrative* Problem [...] of this encounter (statuses as of 12/27/2021) [facility] Narrative* Problem [...] of this encounter (statuses as of 01/05/2022) [facility] Narrative* Problem [...] of this encounter (statuses as of 01/11/2022) [facility] Narrative* Problem [...] of this encounter (statuses as of 01/17/2022) [facility] Narrative* Problem [...] of this encounter (statuses as of 01/17/2022) [facility] Narrative* Problem [...] of this encounter (statuses as of 02/02/2022) [facility] Narrative* Problem [...] of this encounter (statuses as of 02/22/2022) [facility] Narrative* Problem [...] of this encounter (statuses as of 02/24/2022) [facility] Narrative* Problem [...] of this encounter (statuses as of 03/14/2022) [facility] Narrative* Problem [...] of this encounter (statuses as of 03/30/2022) [facility] Narrative* Problem [...] of this encounter (statuses as of 04/06/2022) [facility] Narrative* Problem [...] of this encounter (statuses as of 04/21/2022) [facility] Narrative* Problem [...] of this encounter (statuses as of 05/04/2022) [facility] Narrative* Problem [...] of this encounter (statuses as of 05/24/2022) [facility] Narrative* Problem [...] of this encounter (statuses as of 06/01/2022) [facility] Narrative* Problem [...] of this encounter (statuses as of 06/29/2022) [facility] Narrative* Problem [...] of this encounter (statuses as of 07/24/2022) [facility] Narrative* Problem [...] of this encounter (statuses as of 07/24/2022) [facility] Narrative* Problem [...] of this encounter (statuses as of 08/13/2022) [facility] Narrative* Problem [...] of this encounter (statuses as of 08/15/2022) [facility] Narrative* Problem [...] of this encounter (statuses as of 09/08/2022) [facility] Narrative* Problem [...] of this encounter (statuses as of 09/11/2022) [facility] Narrative* Problem [...] of this encounter (statuses as of 09/15/2022) [facility] Narrative* Problem [...] of this encounter (statuses as of 09/26/2022) [facility] Narrative* Problem [...] of this encounter (statuses as of 10/10/2022) [facility] Narrative* Problem [...] of this encounter (statuses as of 10/13/2022) [facility] Narrative* Problem [...] of this encounter (statuses as of 10/27/2022) [facility] Narrative* Problem [...] of this encounter (statuses as of 10/27/2022) [facility] Narrative* Problem [...] of this encounter (statuses as of 10/31/2022) [facility] Narrative* Problem [...] of this encounter (statuses as of 10/31/2022) [facility] Narrative* Problem [...] of this encounter (statuses as of 11/02/2022) [facility] Narrative* Problem [...] of this encounter (statuses as of 11/10/2022) [facility] N[facility]* Problem [...] of this encounter (statuses as of 11/23/2022) [facility] Narrative* Problem [...] of this encounter (statuses as of 12/07/2022) [facility] Narrative* Problem [...] of this encounter (statuses as of 12/07/2022) [facility] Narrative* Problem [...] of this encounter (statuses as of 12/15/2022) [facility] Narrative* Problem [...] of this encounter (statuses as of 12/20/2022) [facility] Narrative* Problem [...] of this encounter (statuses as of 12/24/2022) [facility] Narrative* Problem [...] of this encounter (statuses as of 12/24/2022) [facility] Narrative* Problem [...] of this encounter (statuses as of 01/04/2023) [facility] N[facility]ative* Problem [...] of this encounter (statuses as of 01/05/2023) [facility] N[facility]ative* Problem [...] of this encounter (statuses as of 01/10/2023) [facility]* Problem [...] of this encounter (statuses as of 01/18/2023) [facility] Narrative* Problem [...] of this encounter (statuses as of 01/24/2023) [facility] Narrative* Problem [...] of this encounter (statuses as of 02/03/2023) [facility] Narrative* Problem [...] of this encounter (statuses as of 02/08/2023) [facility] N[facility]ative* Problem [...] of this encounter (statuses as of 03/24/2023) [facility] Narrative* Problem [...] of this encounter (statuses as of 03/27/2023) [facility] Screening mammogram, encounter for- Primary [facility] Diagnosis Essential hypertension- Primary Unspecified essential hypertension History of COVID-19 Cough Bronchiectasis without complication (HCC) Bronchiectasis without acute exacerbation Gastroesophageal reflux disease without esophagitis Esophageal reflux Aortic stenosis with bicuspid valve 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 rheumatoid factor (HCC) [facility] Diagnosis Embolism and thrombosis (HCC) Embolism and thrombosis of unspecified site [facility] Diagnosis Moderate COPD (chronic obstructive pulmonary disease) (HCC)- Primary Chronic airway obstruction, not elsewhere classified Bronchiectasis without complication (HCC) Bronchiectasis without acute exacerbation Centrilobular emphysema (HCC) Other emphysema [facility] Diagnosis Cough due to bronchospasm Acute bronchospasm [facility] this [facility]* Diagnosis Embolism and thrombosis (HCC) Embolism and thrombosis of unspecified site [facility] Diagnosis Personal history of DVT (deep vein thrombosis)- Primary Personal history of venous thrombosis and embolism [facility] Diagnosis Aortic stenosis with bicuspid valve- Primary Essential hypertension Unspecified essential hypertension [facility] Diagnosis Personal history of DVT (deep vein thrombosis)- Primary Personal history of venous thrombosis and embolism [facility] this [facility] Diagnosis Encounter for screening mammogram for breast cancer [facility] this [facility] Diagnosis Gastroesophageal reflux disease without esophagitis- Primary Esophageal reflux Other viral warts Elevated LDL cholesterol level Pure hypercholesterolemia Essential hypertension Unspecified essential hypertension Need for COVID-19 vaccine COPD without exacerbation (HCC) Bronchiectasis without complication (HCC) Bronchiectasis without acute exacerbation [facility] this [facility] Diagnosis Toe infection- Primary Unspecified local infection of skin and subcutaneous tissue Sinobronchitis Unspecified sinusitis (chronic) [facility] Diagnosis Personal history of DVT (deep vein thrombosis)- Primary Personal history of venous thrombosis and embolism [facility] Diagnosis Abnormal mammogram Abnormal mammogram, unspecified [facility] this [facility] Diagnosis Ulcer of toe of left foot, limited to breakdown of skin (HCC)- Primary Hammer toe of left foot Onychodystrophy Other specified disease of nail [facility]* Diagnosis Embolism and thrombosis (HCC) Embolism and thrombosis of unspecified site [facility] Ulcer of toe of left foot, limited to breakdown of skin (HCC) Hammer toe of left foot [facility] Diagnosis Ulcer of toe of left foot, limited to breakdown of skin (HCC)- Primary Hammer toe of left foot Hallux rigidus of left foot Hallux rigidus [facility] this [facility]* Diagnosis COPD without exacerbation (HCC) Essential hypertension Unspecified essential hypertension [facility] Diagnosis Essential hypertension- Primary Unspecified essential hypertension Chronic obstructive pulmonary disease, unspecified COPD type (HCC) Encounter for immunization Need for other specified prophylactic vaccination against single bacterial disease Gastroesophageal reflux disease without esophagitis Esophageal reflux Bronchiectasis without complication (HCC) Bronchiectasis without acute exacerbation Aortic stenosis with bicuspid valve [facility] Diagnosis Lung nodules- Primary Other nonspecific abnormal finding of lung field Bronchiectasis without complication (HCC) Bronchiectasis without acute exacerbation Chronic obstructive pulmonary disease, unspecified COPD type (HCC) 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 rheumatoid factor (HCC) [facility] this [facility] Diagnosis Personal history of DVT (deep vein thrombosis)- Primary Personal history of venous thrombosis and embolism [facility]* Diagnosis 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 rheumatoid factor (HCC) Low back pain with right-sided sciatica, unspecified back pain laterality, unspecified chronicity documented [facility] this [facility]* Diagnosis 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 rheumatoid factor (HCC) Low back pain with right-sided sciatica, unspecified back pain laterality, unspecified chronicity Pseudogout Other disorder of calcium metabolism [facility] Diagnosis Personal history of DVT (deep vein thrombosis)- Primary Personal history of venous thrombosis and embolism [facility] Diagnosis Essential hypertension- Primary Unspecified essential hypertension Chronic anticoagulation Long-term (current) use of 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 Aortic stenosis with bicuspid valve 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 rheumatoid factor (HCC) COPD without exacerbation (HCC) Bronchiectasis without complication (HCC) Bronchiectasis without acute exacerbation Acquired hammertoe of left foot Early dry stage nonexudative age-related macular degeneration of both eyes documented [facility] this [facility]* Diagnosis Personal history of DVT (deep vein thrombosis)- Primary Personal history of venous thrombosis and embolism [facility]* Diagnosis Personal history of [...] of calcium metabolism [facility] Diagnosis senior living current use of anticoagulant therapy- Primary Long-term (current) use of 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 [facility] Diagnosis Essential hypertension- Primary Unspecified [...] fracture Senile osteoporosis [facility]* Diagnosis Embolism and thrombosis (HCC)- Primary Embolism and thrombosis of unspecified site documented [facility] this [facility]* Diagnosis 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 rheumatoid factor (HCC) Low back pain with right-sided sciatica, unspecified back pain laterality, unspecified chronicity documented [facility] this [facility]* Diagnosis Lung nodules Other nonspecific abnormal finding of lung field documented [facility] this [facility]* Diagnosis Encounter for screening mammogram for breast cancer documented [facility] this [facility]* Diagnosis Encounter for immunization- Primary Need for other specified prophylactic vaccination against single bacterial disease [facility] Diagnosis Embolism and thrombosis (HCC)- Primary Embolism and thrombosis of unspecified site [facility]* Diagnosis Personal history of DVT (deep vein thrombosis)- Primary Personal history of venous thrombosis and embolism [facility] Diagnosis Acute cough- Primary [facility] [place] [facility] ([facility] Outpatient Procedure (Routine) - Authorized Specialty Diagnoses / Procedures Referred By Divya reis Referred To Contact [facility] Diagnoses Aortic stenosis with bicuspid valve Essential hypertension Procedures ECHO ECHO TTHRC R-T 2D W/WOM-MODE COMPL SPEC&COLR D William Ambriz DO [address] [place] [id number] [facility] [place] [address] Referral ID Status Reason Start Date Expiration Date Visits Requested Visits Authorized [id number] Authorized Auto-Generat ed Referral 08/12/2021 08/12/2022 1 1 * Outpatient Procedure (Routine) - Closed Specialty Diagnoses / Procedures Referred By Contfabian reis Referred To Contact [facility] Diagnoses Aortic stenosis with bicuspid valve Essential hypertension Procedures ECG COMPLETE ECG ROUTINE ECG W/LEAST 12 LDS W/I&R William Ambriz DO [address] [place] [address] [facility] [address] [place] [address] Referral ID Status Reason Start Date Expiration Date V isits Requested Visits Authorized [id number] Closed Auto-Generate d Referral 08/12/2021 08/12/2022 1 1 [facility] for referral (narrative)* Diagnostic Procedure Only (Routine) - Closed Specialty Diagnoses / Procedures Referred By Contac t Referred To Contact XR IMAGING Diagnoses Ulcer of toe of left foot, limited to breakdown of skin (HCC) Hammer toe of left foot Procedures XR FOOT GENERAL 3V AP/LAT/OBL LEFT RADEX FOOT COMPLETE MINIMUM 3 VIEWS Yonas Louise [address] [place] [address] Xr Imaging Referral ID Status Reason Start Date Expiration Date V isits Requested Visits Authorized [id number] Closed Auto-Generate d Referral 10/18/2021 11/17/2022 1 1 T [facility] for referral (narrative)* Diagnostic Procedure Only (Routine) - Closed Specialty Diagnoses / Procedures Referred By Contac t Referred To Contact XR IMAGING Diagnoses Ulcer of toe of left foot, limited to breakdown of skin (HCC) Hammer toe of left foot Procedures XR FOOT GENERAL 3V AP/LAT/OBL LEFT RADEX FOOT COMPLETE MINIMUM 3 VIEWS Yonas Louise[address] [place] [address] Xr Imaging Referral ID Status Reason Start Date Expiration Date V isits Requested Visits Authorized [id number] Closed Auto-Generate d Referral 10/18/2021 11/17/2022 1 1 T [facility] for referral (narrative)* Outpatient Procedure (Routine) - Authorized Specialty Diagnoses / Procedures Referred By Contac t Referred To [facility] Diagnoses Aortic stenosis with bicuspid valve Procedures ECHO ECHO TTHRC R-T 2D W/WOM-MODE COMPL SPEC&COLR Rachelle Wilcox APRN.PATIENT RESOURCE COORDINATOR [address] [address] [facility] [address] [place] [address] Referral ID Status Reason Start Date Expiration Date Visits Requested Visits Authorized [id number] Authorized Auto-Generat ed Referral 08/29/2022 08/29/2023 1 1 [facility] for referral (narrative)* Diagnostic Procedure Only (Routine) - Authorized Specialty Diagnoses / Procedures Referred By Divya reis Referred To Contact [facility] Diagnoses Encounter for screening mammogram for breast cancer Procedures SABINO SCREENING W ALIZE SCREENING DIGITAL BREAST TOMOSYNTHESIS BI SCREENING MAMMOGRAPHY BI 2-VIEW BREAST INC [employer] Jimbo Carias APRN.BUSINESS CONSULT [address] [place] [address] [facility] [address] [place] [address] Referral ID Status Reason Start Date Expiration Date Visits Requested Visits Authorized [id number] Authorized Auto-Generat ed Referral 10/27/2022 11/26/2023 1 1 * Diagnostic Procedure Only (Routine) - Pending Review Specialty Diagnoses / Procedures Referred By Divya reis Referred To Contact [facility] Diagnoses Encounter for screening mammogram for breast cancer Procedures SABINO SCREENING SCREENING MAMMOGRAPHY BI 2-VIEW BREAST INC [employer] Jimbo Carias APRN.BUSINESS CONSULT [address] [place] [address] [facility] [address] [place] [address] Referral ID Status Reason Start Date Expiration Date Visits Requested Visits Authorized [id number] Pending Review Auto-Generat ed Referral 10/27/2022 11/26/2023 1 1 [facility] for referral (narrative)* Diagnostic Procedure Only (Routine) - Closed Specialty Diagnoses / Procedures Referred By Divya t Referred To Contact [facility] Diagnoses Encounter for screening mammogram for breast cancer Procedures SABINO SCREENING W ALIZE SCREENING DIGITAL BREAST TOMOSYNTHESIS BI SCREENING MAMMOGRAPHY BI 2-VIEW BREAST INC CAD Jimbo Carias APRN.BUSINESS CONSULT [address] [place] [address] [facility] [address] [place] [address] Referral ID Status Reason Start Date Expiration Date V isits Requested Visits Authorized [id number] Closed Auto-Generate d Referral 10/27/2022 11/26/2023 1 1 [facility] for visit Narrative* Diagnostic Procedure Only (Routine) - Closed Specialty Diagnoses / Procedures Referred By Divya reis Referred To Contact XR IMAGING Diagnoses Ulcer of toe of left foot, limited to breakdown of skin (HCC) Hammer toe of left foot Procedures XR FOOT GENERAL 3V AP/LAT/OBL LEFT RADEX FOOT COMPLETE MINIMUM 3 VIEWS Yonas Louise [address] [place] [address] Xr Imaging Referral ID Status Reason Start Date Expiration Date V isits Requested Visits Authorized [id number] Closed Auto-Generate d Referral 10/18/2021 11/17/2022 1 1 [facility] for visit Narrative* Diagnostic Procedure Only (Routine) - Closed Specialty Diagnoses / Procedures Referred By Divya t Referred To Contact [facility] Diagnoses Encounter for screening mammogram for breast cancer Procedures SABINO SCREENING W ALIZE SCREENING DIGITAL BREAST TOMOSYNTHESIS BI SCREENING MAMMOGRAPHY BI 2-VIEW BREAST INC [employer] Jimbo Carias APRN.BUSINESS CONSULT [address] [place] [address] [facility] [address] [place] [address] Referral ID Status Reason Start Date Expiration Date V isits Requested Visits Authorized [id number] Closed Auto-Generate d Referral 10/27/2022 11/26/2023 1 1 [facility] Summary Purpose Family History No Family History Records FoundNo Family History Records FoundNo Family History Records FoundNo Family History Records FoundNo Family History Records Found Advance Directives No Advanced Directives Records FoundDocuments on File Type Date Recorded Patient Nurse Midwife Expl anation Advance Directive(s) 02/25/2018 1:19 PM Latest Code Status on File Code Status Date Activated Date Inactivated Comments Full Code 03/02/2018 6:22 PM 03/03/2018 4:33 PM Full Code Order Discussed With: Patient Documents on File Type Date Recorded Patient Nurse Midwife Expl anation Advance Directive(s) 03/24/2019 12:16 PM Advance Directive(s) 03/02/2018 11:28 AM Advance Directive(s) 02/25/2018 1:11 PM Advance Directive(s) 02/25/2018 1:19 PM Advance Directive(s) 01/25/2018 9:15 AM Advance Directive(s) 07/30/2017 2:22 PM Documents on File Type Date Recorded Patient Nurse Midwife Expl anation Advance Directive(s) 03/24/2019 12:16 PM Advance Directive(s) 03/02/2018 11:28 AM Advance Directive(s) 02/25/2018 1:11 PM Advance Directive(s) 02/25/2018 1:19 PM Advance Directive(s) 01/25/2018 9:15 AM Advance Directive(s) 07/30/2017 2:22 PM Latest Code Status on File Code Status Date Activated Date Inactivated Comments Full Code 03/02/2018 6:22 PM 03/03/2018 4:33 PM Documents on File Type Date Recorded Patient Nurse Midwife Expl anation Advance Directive(s) 02/25/2018 1:19 PM [...] Florence Duncan MD [address] [place] [address] Ct Imaging Referral ID Status Reason Start Date Expiration Date Visits Requested Visits Authorized [id number] Authorized Auto-Generat ed Referral 12/29/2022 1 1 Specialty Diagnoses / Procedures Referred By Contac t Referred To Contact CT IMAGING Diagnoses Lung nodules Bronchiectasis without complication (HCC) Procedures CT CHEST WO IVCON DIAGNOSTIC COMPUTED TOMOGRAPHY THORAX W/O Florence Duncan MD [address] [place] [address] Ct Imaging Referral ID Status Reason Start Date Expiration Date Visits Requested Visits Authorized [id number] Authorized Auto-Generat ed Referral 01/23/2023 08/23/2023 1 1 Specialty Diagnoses / Procedures Referred By Contac t Referred To Contact CT IMAGING Diagnoses Lung nodules Procedures CT CHEST WO IVCON DIAGNOSTIC COMPUTED TOMOGRAPHY THORAX W/O Florence Duncan MD [address] [place] [address] [place] [address] Referral ID Status Reason Start Date Expiration Date V isits Requested Visits Authorized [id number] Closed Auto-Generate d Referral 11/29/2021 12/29/2022 1 [...] DATE CREATED AUTHOR AUTHOR'S ORGANIZ ATION 03/10/2018 [facility] DATE CREATED AUTHOR AUTHOR'S ORGANIZ ATION 05/29/2020 [facility] DATE CREATED AUTHOR AUTHOR'S ORGANIZ ATION 03/18/2023 [facility] DATE CREATED AUTHOR AUTHOR'S ORGANIZ ATION 03/30/2023 [facility] Source Comments (unrecognize d section and content) In the event this informatio n is protected by the Federal Confidentiality of Alcohol and Drug Abuse Patient Records regulations: The Federal rules restrict any use of the information to criminally investigate or prosecute any alcohol or drug abuse patient.[facility] the event this information is protected by the Federal Confidentiality of Alcohol and Drug Abuse Patient Records regulations: The Federal rules restrict any use of the information to criminally investigate or prosecute any alcohol or drug abuse patient.[facility] the event this information is protected by the Federal Confidentiality of Alcohol and Drug Abuse Patient Records regulations: The Federal rules restrict any use of the information to criminally investigate or prosecute any alcohol or drug abuse patient.[facility] the event this information is protected by the Federal Confidentiality of Alcohol and Drug Abuse Patient Records regulations: The Federal rules restrict any use of the information to criminally investigate or prosecute any alcohol or drug abuse patient.[facility] the event this information is protected by the Federal Confidentiality of Alcohol and Drug Abuse Patient Records regulations: The Federal rules restrict any use of the information to criminally investigate or prosecute any alcohol or drug abuse patient.[facility] the event this information is protected by the Federal Confidentiality of Alcohol and Drug Abuse Patient Records regulations: The Federal rules restrict any use of the information to criminally investigate or prosecute any alcohol or drug abuse patient.[facility] the event this information is protected by the Federal Confidentiality of Alcohol and Drug Abuse Patient Records regulations: The Federal rules restrict any use of the information to criminally investigate or prosecute any alcohol or drug abuse patient.[facility] the event this information is protected by the Federal Confidentiality of Alcohol and Drug Abuse Patient Records regulations: The Federal rules restrict any use of the information to criminally investigate or prosecute any alcohol or drug abuse patient.[facility] the event this information is protected by the Federal Confidentiality of Alcohol and Drug Abuse Patient Records regulations: The Federal rules restrict any use of the information to criminally investigate or prosecute any alcohol or drug abuse patient.[facility] the event this information is protected by the Federal Confidentiality of Alcohol and Drug Abuse Patient Records regulations: The Federal rules restrict any use of the information to criminally investigate or prosecute any alcohol or drug abuse patient.[facility] the event this information is protected by the Federal Confidentiality of Alcohol and Drug Abuse Patient Records regulations: The Federal rules restrict any use of the information to criminally investigate or prosecute any alcohol or drug abuse patient.[facility] the event this information is protected by the Federal Confidentiality of Alcohol and Drug Abuse Patient Records regulations: The Federal rules restrict any use of the information to criminally investigate or prosecute any alcohol or drug abuse patient.[facility] the event this information is protected by the Federal Confidentiality of Alcohol and Drug Abuse Patient Records regulations: The Federal rules restrict any use of the information to criminally investigate or prosecute any alcohol or drug abuse patient.[facility] the event this information is protected by the Federal Confidentiality of Alcohol and Drug Abuse Patient Records regulations: The Federal rules restrict any use of the information to criminally investigate or prosecute any alcohol or drug abuse patient.[facility] the event this information is protected by the Federal Confidentiality of Alcohol and Drug Abuse Patient Records regulations: The Federal rules restrict any use of the information to criminally investigate or prosecute any alcohol or drug abuse patient.[facility] the event this information is protected by the Federal Confidentiality of Alcohol and Drug Abuse Patient Records regulations: The Federal rules restrict any use of the information to criminally investigate or prosecute any alcohol or drug abuse patient.[facility] the event this information is protected by the Federal Confidentiality of Alcohol and Drug Abuse Patient Records regulations: The Federal rules restrict any use of the information to criminally investigate or prosecute any alcohol or drug abuse patient.[facility] the event this information is protected by the Federal Confidentiality of Alcohol and Drug Abuse Patient Records regulations: The Federal rules restrict any use of the information to criminally investigate or prosecute any alcohol or drug abuse patient.[facility] the event this information is protected by the Federal Confidentiality of Alcohol and Drug Abuse Patient Records regulations: The Federal rules restrict any use of the information to criminally investigate or prosecute any alcohol or drug abuse patient.[facility] the event this information is protected by the Federal Confidentiality of Alcohol and Drug Abuse Patient Records regulations: The Federal rules restrict any use of the information to criminally investigate or prosecute any alcohol or drug abuse patient.[facility] the event this information is protected by the Federal Confidentiality of Alcohol and Drug Abuse Patient Records regulations: The Federal rules restrict any use of the information to criminally investigate or prosecute any alcohol or drug abuse patient.[facility] the event this information is protected by the Federal Confidentiality of Alcohol and Drug Abuse Patient Records regulations: The Federal rules restrict any use of the information to criminally investigate or prosecute any alcohol or drug abuse patient.[facility] the event this information is protected by the Federal Confidentiality of Alcohol and Drug Abuse Patient Records regulations: The Federal rules restrict any use of the information to criminally investigate or prosecute any alcohol or drug abuse patient.[facility] the event this information is protected by the Federal Confidentiality of Alcohol and Drug Abuse Patient Records regulations: The Federal rules restrict any use of the information to criminally investigate or prosecute any alcohol or drug abuse patient.[facility] the event this information is protected by the Federal Confidentiality of Alcohol and Drug Abuse Patient Records regulations: The Federal rules restrict any use of the information to criminally investigate or prosecute any alcohol or drug abuse patient.[facility] HospitalIn the event this information is protected by the Federal Confidentiality of Alcohol and Drug Abuse Patient Records regulations: The Federal rules restrict any use of the information to criminally investigate or prosecute any alcohol or drug abuse patient.[facility] HospitalIn the event this information is protected by the Federal Confidentiality of Alcohol and Drug Abuse Patient Records regulations: The Federal rules restrict any use of the information to criminally investigate or prosecute any alcohol or drug abuse patient.[facility] HospitalIn the event this information is protected by the Federal Confidentiality of Alcohol and Drug Abuse Patient Records regulations: The Federal rules restrict any use of the information to criminally investigate or prosecute any alcohol or drug abuse patient.[facility] HospitalIn the event this information is protected by the Federal Confidentiality of Alcohol and Drug Abuse Patient Records regulations: The Federal rules restrict any use of the information to criminally investigate or prosecute any alcohol or drug abuse patient.[facility] HospitalIn the event this information is protected by the Federal Confidentiality of Alcohol and Drug Abuse Patient Records regulations: The Federal rules restrict any use of the information to criminally investigate or prosecute any alcohol or drug abuse patient.[facility] HospitalIn the event this information is protected by the Federal Confidentiality of Alcohol and Drug Abuse Patient Records regulations: The Federal rules restrict any use of the information to criminally investigate or prosecute any alcohol or drug abuse patient.[facility] HospitalIn the event this information is protected by the Federal Confidentiality of Alcohol and Drug Abuse Patient Records regulations: The Federal rules restrict any use of the information to criminally investigate or prosecute any alcohol or drug abuse patient.[facility] HospitalIn the event this information is protected by the Federal Confidentiality of Alcohol and Drug Abuse Patient Records regulations: The Federal rules restrict any use of the information to criminally investigate or prosecute any alcohol or drug abuse patient.[facility] HospitalIn the event this information is protected by the Federal Confidentiality of Alcohol and Drug Abuse Patient Records regulations: The Federal rules restrict any use of the information to criminally investigate or prosecute any alcohol or drug abuse patient.[facility] HospitalIn the event this information is protected [...] or prosecute any alcohol or drug abuse patient.[facility] HospitalIn the event this information is protected by the Federal Confidentiality of Alcohol and Drug Abuse Patient Records regulations: The Federal rules restrict any use of the information to criminally investigate or prosecute any alcohol or drug abuse patient.[facility] HospitalIn the event this information is protected by the Federal Confidentiality of Alcohol and Drug Abuse Patient Records regulations: The Federal rules restrict any use of the information to criminally investigate or prosecute any alcohol or drug abuse patient.[facility] HospitalIn the event this information is protected by the Federal Confidentiality of Alcohol and Drug Abuse Patient Records regulations: The Federal rules restrict any use of the information to criminally investigate or prosecute any alcohol or drug abuse patient.[facility] HospitalIn the event this information is protected by the Federal Confidentiality of Alcohol and Drug Abuse Patient Records regulations: The Federal rules restrict any use of the information to criminally investigate or prosecute any alcohol or drug abuse patient.[facility] HospitalIn the event this information is protected by the Federal Confidentiality of Alcohol and Drug Abuse Patient Records regulations: The Federal rules restrict any use of the information to criminally investigate or prosecute any alcohol or drug abuse patient.[facility] HospitalIn the event this information is protected by the Federal Confidentiality of Alcohol and Drug Abuse Patient Records regulations: The Federal rules restrict any use of the information to criminally investigate or prosecute any alcohol or drug abuse patient.[facility] HospitalIn the event this information is protected by the Federal Confidentiality of Alcohol and Drug Abuse Patient Records regulations: The Federal rules restrict any use of the information to criminally investigate or prosecute any alcohol or drug abuse patient.[facility] HospitalIn the event this information is protected by the Federal Confidentiality of Alcohol and Drug Abuse Patient Records regulations: The Federal rules restrict any use of the information to criminally investigate or prosecute any alcohol or drug abuse patient.[facility] HospitalIn the event this information is protected by the Federal Confidentiality of Alcohol and Drug Abuse Patient Records regulations: The Federal rules restrict any use of the information to criminally investigate or prosecute any alcohol or drug abuse patient.[facility] HospitalIn the event this information is protected by the Federal Confidentiality of Alcohol and Drug Abuse Patient Records regulations: The Federal rules restrict any use of the information to criminally investigate or prosecute any alcohol or drug abuse patient.[facility] HospitalIn the event this information is protected by the Federal Confidentiality of Alcohol and Drug Abuse Patient Records regulations: The Federal rules restrict any use of the information to criminally investigate or prosecute any alcohol or drug abuse patient.[facility] HospitalIn the event this information is protected by the Federal Confidentiality of Alcohol and Drug Abuse Patient Records regulations: The Federal rules restrict any use of the information to criminally investigate or prosecute any alcohol or drug abuse patient.[facility] HospitalIn the event this information is protected by the Federal Confidentiality of Alcohol and Drug Abuse Patient Records regulations: The Federal rules restrict any use of the information to criminally investigate or prosecute any alcohol or drug abuse patient.[facility] HospitalIn the event this information is protected by the Federal Confidentiality of Alcohol and Drug Abuse Patient Records regulations: The Federal rules restrict any use of the information to criminally investigate or prosecute any alcohol or drug abuse patient.[facility] HospitalIn the event this information is protected by the Federal Confidentiality of Alcohol and Drug Abuse Patient Records regulations: The Federal rules restrict any use of the information to criminally investigate or prosecute any alcohol or drug abuse patient.[facility] HospitalIn the event this information is protected by the Federal Confidentiality of Alcohol and Drug Abuse Patient Records regulations: The Federal rules restrict any use of the information to criminally investigate or prosecute any alcohol or drug abuse patient.[facility] HospitalIn the event this information is protected by the Federal Confidentiality of Alcohol and Drug Abuse Patient Records regulations: The Federal rules restrict any use of the information to criminally investigate or prosecute any alcohol or drug abuse patient.[facility] HospitalIn the event this information is protected by the Federal Confidentiality of Alcohol and Drug Abuse Patient Records regulations: The Federal rules restrict any use of the information to criminally investigate or prosecute any alcohol or drug abuse patient.[facility] HospitalIn the event this information is protected by the Federal Confidentiality of Alcohol and Drug Abuse Patient Records regulations: The Federal rules restrict any use of the information to criminally investigate or prosecute any alcohol or drug abuse patient.[facility] HospitalIn the event this information is protected by the Federal Confidentiality of Alcohol and Drug Abuse Patient Records regulations: The Federal rules restrict any use of the information to criminally investigate or prosecute any alcohol or drug abuse patient.[facility] HospitalIn the event this information is protected by the Federal Confidentiality of Alcohol and Drug Abuse Patient Records regulations: The Federal rules restrict any use of the information to criminally investigate or prosecute any alcohol or drug abuse patient.[facility] HospitalIn the event this information is protected by the Federal Confidentiality of Alcohol and Drug Abuse Patient Records regulations: The Federal rules restrict any use of the information to criminally investigate or prosecute any alcohol or drug abuse patient.[facility] HospitalIn the event this information is protected by the Federal Confidentiality of Alcohol and Drug Abuse Patient Records regulations: The Federal rules restrict any use of the information to criminally investigate or prosecute any alcohol or drug abuse patient.[facility] HospitalIn the event this information is protected by the Federal Confidentiality of Alcohol and Drug Abuse Patient Records regulations: The Federal rules restrict any use of the information to criminally investigate or prosecute any alcohol or drug abuse patient.[facility] HospitalIn the event this information is protected by the Federal Confidentiality of Alcohol and Drug Abuse Patient Records regulations: The Federal rules restrict any use of the information to criminally investigate or prosecute any alcohol or drug abuse patient.[facility] HospitalIn the event this information is protected by the Federal Confidentiality of Alcohol and Drug Abuse Patient Records regulations: The Federal rules restrict any use of the information to criminally investigate or prosecute any alcohol or drug abuse patient.[facility] HospitalIn the event this information is protected by the Federal Confidentiality of Alcohol and Drug Abuse Patient Records regulations: The Federal rules restrict any use of the information to criminally investigate or prosecute any alcohol or drug abuse patient.[facility] HospitalIn the event this information is protected by the Federal Confidentiality of Alcohol and Drug Abuse Patient Records regulations: The Federal rules restrict any use of the information to criminally investigate or prosecute any alcohol or drug abuse patient.[facility] HospitalIn the event this information is protected by the Federal Confidentiality of Alcohol and Drug Abuse Patient Records regulations: The Federal rules restrict any use of the information to criminally investigate or prosecute any alcohol or drug abuse patient.[facility] HospitalIn the event this information is protected by the Federal Confidentiality of Alcohol and Drug Abuse Patient Records regulations: The Federal rules restrict any use of the information to criminally investigate or prosecute any alcohol or drug abuse patient.[facility] HospitalIn the event this information is protected by the Federal Confidentiality of Alcohol and Drug Abuse Patient Records regulations: The Federal rules restrict any use of the information to criminally investigate or prosecute any alcohol or drug abuse patient.[facility] HospitalIn the event this information is protected by the Federal Confidentiality of Alcohol and Drug Abuse Patient Records regulations: The Federal rules restrict any use of the information to criminally investigate or prosecute any alcohol or drug abuse patient.[facility] HospitalIn the event this information is protected by the Federal Confidentiality of Alcohol and Drug Abuse Patient Records regulations: The Federal rules restrict any use of the information to criminally investigate or prosecute any alcohol or drug abuse patient.[facility] HospitalIn the event this information is protected by the Federal Confidentiality of Alcohol and Drug Abuse Patient Records regulations: The Federal rules restrict any use of the information to criminally investigate or prosecute any alcohol or drug abuse patient.[facility] HospitalIn the event this information is protected by the Federal Confidentiality of Alcohol and Drug Abuse Patient Records regulations: The Federal rules restrict any use of the information to criminally investigate or prosecute any alcohol or drug abuse patient.[facility] HospitalIn the event this information is protected by the Federal Confidentiality of Alcohol and Drug Abuse Patient Records regulations: The Federal rules restrict any use of the information to criminally investigate or prosecute any alcohol or drug abuse patient.[facility] HospitalIn the event this information is protected by the Federal Confidentiality of Alcohol and Drug Abuse Patient Records regulations: The Federal rules restrict any use of the information to criminally investigate or prosecute any alcohol or drug abuse patient.[facility] HospitalIn the event this information is protected by the Federal Confidentiality of Alcohol and Drug Abuse Patient Records regulations: The Federal rules restrict any use of the information to criminally investigate or prosecute any alcohol or drug abuse patient.[facility] HospitalIn the event this information is protected by the Federal Confidentiality of Alcohol and Drug Abuse Patient Records regulations: The Federal rules restrict any use of the information to criminally investigate or prosecute any alcohol or drug abuse patient.[facility] HospitalIn the event this information is protected by the Federal Confidentiality of Alcohol and Drug Abuse Patient Records regulations: The Federal rules restrict any use of the information to criminally investigate or prosecute any alcohol or drug abuse patient.[facility] HospitalIn the event this information is protected by the Federal Confidentiality of Alcohol and Drug Abuse Patient Records regulations: The Federal rules restrict any use of the information to criminally investigate or prosecute any alcohol or drug abuse patient.[facility] HospitalIn the event this information is protected by the Federal Confidentiality of Alcohol and Drug Abuse Patient Records regulations: The Federal rules restrict any use of the information to criminally investigate or prosecute any alcohol or drug abuse patient.[facility] Reason for Visit (unrecogniz ed section [...] REAL TIME WITH IMAGE LIMITED Brenda Shankar, WAREHOUSE RECEIVER.PATIENT RESOURCE COORDINATOR [address] [place] [address] [facility] [address] [place] [address] Referral ID Status Reason Start Date Expiration Date V isits Requested Visits Authorized [id number] Closed Auto-Generate d Referral 09/05/2021 10/05/2022 1 1 Reason Comments Radiology Mammogram Specialty Diagnoses / Procedures Referred By Contac t Referred To Contact [facility] Diagnoses Abnormal mammogram Procedures SABINO DIAGNOSTIC LT DIAGNOSTIC MAMMOGRAPHY COMPUTER-AIDED DETCJ UNI Vonnie, Brenda, WAREHOUSE RECEIVER.PATIENT RESOURCE COORDINATOR [address] [place] [address] [facility] [address] [place] [address] Referral ID Status Reason Start Date Expiration Date V isits Requested Visits Authorized [id number] Closed Auto-Generate d Referral 09/05/2021 10/05/2022 1 [...] NEW HIGH MDM 60-74 MINUTES Jeana Sommers APRN.PATIENT RESOURCE COORDINATOR [address] [place] [address] Referral ID Status Reason Start Date Expiration Date Visits Requested Visits Authorized [id number] Pending Review PCP Requested Referral 10/11/2022 10/11/2023 1 1 Reason Onset Date Comments Refill Request 12/20/[address] Specialty Diagnoses / Procedures Referred By Divya reis Referred To Contact CT [facility]AG[facility] Diagnoses Lung nodules Procedures CT CHEST WO IVCON DIAGNOSTIC COMPUTED TOMOGRAPHY THORAX W/O Florence Duncan MD [address] [place] [address] Ct [facility] [place] [id number] Referral ID Status Reason Start Date Expiration Date V isits Requested Visits Authorized [id number] Closed Auto-Generate d Referral 11/29/2021 12/29/2022 1 1 Reason Comments Imm/Inj COVID vaccine and di scuss RSV Reason Comments Refill Request Reason Comments Cough Cough and congestion x 4 weeks Reason Onset Date Comments Appointment 03/23/2023 Care Teams (unrecognized sec tion and content) Casino Duty Manager Relationship Specialty Start Date End Date Claudine Durán MD [address] [facility], [place] [id number] PCP - General Internal Medicine 03/02/16 Will Hurley [address] [facility] [place] [address] Referring Rheumatology 04/09/18 Gold Colón, finishing frame runnerHeel Seat Fitter Machine Internal Medicine 07/22/20 Casino Duty Manager Relationship Specialty Start Date End Date Claudine Durán MD [address] [facility], [place] [address] PCP - General Internal Medicine 03/02/16 Will Hurley [address] [place] [address] Referring Rheumatology 04/09/18 Gold Colón, finishing frame runnerHeel Seat Fitter Machine Internal Medicine 07/22/20 Casino Duty Manager Relationship Specialty Start Date End Date Claudine Durán MD [address] [place] [address] PCP - General Internal Medicine 03/02/16 Will Hurley [address] [facility] [place] [address] Referring Rheumatology 04/09/18 Gold Colón, finishing frame runnerHeel Seat Fitter Machine Internal Medicine 07/22/20 Casino Duty Manager Relationship Specialty Start Date End Date Claudine Durán MD [address] [place] [address] PCP - General Internal Medicine 03/02/16 Will Hurley [address] [facility] [place] [address] Referring Rheumatology 04/09/18 Gold Colón, finishing frame runnerHeel Seat Fitter Machine Internal Medicine 07/22/20 Casino Duty Manager Relationship Specialty Start Date End Date Claudine Durán MD [address] [facility], [place] [id number] PCP - General Internal Medicine 03/02/16 Will Hurley [address] [facility] [place] [address] Referring Rheumatology 04/09/18 Gold Colón, finishing frame runnerHeel Seat Fitter Machine Internal Medicine 07/22/20 Casino Duty Manager Relationship Specialty Start Date End Date Claudine Durán MD [address] [place] [address] PCP - General Internal Medicine 03/02/16 iWll Hurley [address] [facility] [place] [address] Referring Rheumatology 04/09/18 Gold Colón, finishing frame runnerHeel Seat Fitter Machine Internal Medicine 07/22/20 Casino Duty Manager Relationship Specialty Start Date End Date Claudine Durán MD [address] [place] [address] PCP - General Internal Medicine 03/02/16 Will Hurley [address] [facility] [place] [address] Referring Rheumatology 04/09/18 Gold Colón, finishing frame runnerHeel Seat Fitter Machine Internal Medicine 07/22/20 Casino Duty Manager Relationship Specialty Start Date End Date Claudine Durán MD [address] [place] [address] PCP - General Internal Medicine 03/02/16 Will Hurley [address] [facility] [place] [address] Referring Rheumatology 04/09/18 Gold Colón, finishing frame runnerHeel Seat Fitter Machine Internal Medicine 07/22/20 Casino Duty Manager Relationship Specialty Start Date End Date Claudine Durán MD [address] [place] [address] PCP - General Internal Medicine 03/02/16 Will Hurley [address] [facility] [place] [address] Referring Rheumatology 04/09/18 Gold Colón, finishing frame runnerHeel Seat Fitter Machine Internal Medicine 07/22/20 Casino Duty Manager Relationship Specialty Start Date End Date Claudine Durán MD [address] [place] [address] PCP - General Internal Medicine 03/02/16 Will Hurley [address] [facility] [place] [address] Referring Rheumatology 04/09/18 Gold Colón, finishing frame runnerHeel Seat Fitter Machine Internal Medicine 07/22/20 Casino Duty Manager Relationship Specialty Start Date End Date Claudine Durán MD [address] [place] [address] PCP - General Internal Medicine 03/02/16 Will Hurley [address] [facility] [place] [address] Referring Rheumatology 04/09/18 Gold Colón, finishing frame runnerHeel Seat Fitter Machine Internal Medicine 07/22/20 Casino Duty Manager Relationship Specialty Start Date End Date Claudine Durán MD [address] [place] [address] PCP - General Internal Medicine 03/02/16 Will Hurley [address] [facility] [place] [address] Referring Rheumatology 04/09/18 Gold Colón, finishing frame runnerHeel Seat Fitter Machine Internal Medicine 07/22/20 Casino Duty Manager Relationship Specialty Start Date End Date Claudine Durán MD [address] [place] [address] PCP - General Internal Medicine 03/02/16 Will Hurley [address] [facility] [place] [address] Referring Rheumatology 04/09/18 Gold Colón, finishing frame runnerHeel Seat Fitter Machine Internal Medicine 07/22/20 Casino Duty Manager Relationship Specialty Start Date End Date Claudine Durán MD [address] [facility], [place] [id number] PCP - General Internal Medicine 03/02/16 Will Hurley [address] [facility] [place] [address] Referring Rheumatology 04/09/18 Gold Colón finishing frame runnerHeel Seat Fitter Machine Internal Medicine 07/22/20 Casino Duty Manager Relationship Specialty Start Date End Date Claudine Durán MD [address] [place] [address] PCP - General Internal Medicine 03/02/16 Will Hurley [address] [facility] [place] [address] Referring Rheumatology 04/09/18 Gold Colón finishing frame runnerHeel Seat Fitter Machine Internal Medicine 07/22/20 Casino Duty Manager Relationship Specialty Start Date End Date Claudine Durán MD [address] [facility], [place] [address] PCP - General Internal Medicine 03/02/16 Will Hurley [address] [facility] [place] [address] Referring Rheumatology 04/09/18 Gold Colón finishing frame runnerHeel Seat Fitter Machine Internal Medicine 07/22/20 Casino Duty Manager Relationship Specialty Start Date End Date Claudine Durán MD [address] [place] [address] PCP - General Internal Medicine 03/02/16 Will Hurley [address] [facility] [place] [address] Referring Rheumatology 04/09/18 Gold Colón, finishing frame runnerHeel Seat Fitter Machine Internal Medicine 07/22/20 Casino Duty Manager Relationship Specialty Start Date End Date Claudine Durán MD [address] [place] [address] PCP - General Internal Medicine 03/02/16 Will granger [address] [facility] [place] [address] Referring Rheumatology 04/09/18 Lulú Ramos, RN [address] [place], [place] [id number] Heel Seat Fitter Machine Family Medicine 07/22/20 Casino Duty Manager Relationship Specialty Start Date End Date Claudine Durán MD [address] [place] [address] PCP - General Internal Medicine 03/02/16 Will Hurley [address] [facility] [place] [address] Referring Rheumatology 04/09/18 Gold Colón, finishing frame runnerHeel Seat Fitter Machine Internal Medicine 07/22/20 12/20/21 Lulú Ramos, PAULA [address] [place], [place] [id number] Heel Seat Fitter Machine Family Medicine 07/22/20 Casino Duty Manager Relationship Specialty Start Date End Date Claudine Durán MD [address] [facility], [place] [address] PCP - General Internal Medicine 03/02/16 Will Hurley [address] [place] [address] Referring Rheumatology 04/09/18 Lulú Ramos, RN [address] [place] [address] Heel Seat Fitter Machine Family [facility] 07/22/20 Casino Duty Manager Relationship Specialty Start Date End Date Claudine Durán MD [address] [place] [address] PCP - General Internal Medicine 03/02/[address] [facility] [address] [facility] [place] [address] Referring Rheumatology 04/09/18 Lulú Ramos, PAULA [address] [place] [address] Heel Seat Fitter Machine Family Medicine 07/22/20 Casino Duty Manager Relationship Specialty Start Date End Date Claudine Durán MD [address] [place] [address] PCP - General Internal Medicine 03/02/[address] [facility] [address] [place] [address] Referring Rheumatology 04/09/18 Lulú Ramos, PAULA [address] [place] [address] Heel Seat Fitter Machine Family Medicine 07/22/20 Casino Duty Manager Relationship Specialty Start Date End Date Claudine Durán MD [address] [place] [address] PCP - General Internal Medicine 03/02/[address] [facility] [place] [facility] [address] Referring Rheumatology 04/09/18 Lulú Ramos, RN [address] [place] [address] Heel Seat Fitter Machine Family Medicine 07/22/20 Casino Duty Manager Relationship Specialty Start Date End Date Claudine Durán MD [address] [place] [address] PCP - General Internal Medicine 03/02/16 Will [facility] [address] [facility] [place] [address] Referring Rheumatology 04/09/18 Lulú Ramos, RN [address] [place] [address] Heel Seat [employer] Family Medicine 12/20/21 Casino Duty Manager Relationship Specialty Start Date End Date Claudine Durán MD [address] [place] [address] PCP - General Internal Medicine 03/02/16 Will Hurley [address] [facility] [place] [address] Referring Rheumatology 04/09/18 Lulú Ramos, PAULA [address] [place] [address] Heel Seat [employer] Family Medicine 12/20/21 Casino Duty Manager Relationship Specialty Start Date End Date Claudine Durán MD [address] [place] [address] PCP - General Internal Medicine 03/02/16 Will Hurley [address] [facility] [place] [address] Referring Rheumatology 04/09/18 Lulú Ramos, RN [address] [place] [address] Heel Se[employer] Family Medicine 12/20/21 Casino Duty Manager Relationship Specialty Start Date End Date Claudine Durán MD [address] [place] [address] PCP - General Internal Medicine 03/02/[address] [facility] [place] [address] Referring Rheumatology 04/09/18 Lulú Ramos, RN [address] [place] [address] [employer] Family Medicine 12/20/21 Casino Duty Manager Relationship Specialty Start Date End Date Claudine Durán MD [address] [place] [address] PCP - General Internal Medicine 03/02/16 Will Hurley [address] [place] [address], [place] [address] Referring Rheumatology 04/09/18 Lulú Ramos, PAULA [address] [place] [address] Heel Seat [employer] Family Medicine 12/20/21 Casino Duty Manager Relationship Specialty Start Date End Date Claudine Durán MD [address] [place] [address] PCP - General Internal Medicine 03/02/16 Will Hurley [address] [place], [place] [address] [place] [address] Referring Rheumatology 04/09/18 Lulú Ramos, PAULA [address] [place] [address] Heel Se[employer] Family Medicine 12/20/21 Casino Duty Manager Relationship Specialty Start Date End Date Claudine Durán MD [address] [place] [address] PCP - General Internal Medicine 03/02/16 Will Hurley[address] [place] [address] Referring Rheumatology 04/09/18 Lulú Ramos, PAULA [address] [place] [address] Heel Seat Fitter [employer] Family Medicine 12/20/21 Casino Duty Manager Relationship Specialty Start Date End Date Claudine Durán MD [address] [place] [address] PCP - General Internal Medicine 03/02/[address] [facility] [place] [address] Referring Rheumatology 04/09/18 Lulú Ramos, PAULA [address] [place] [address] Heel Seat F[employer] Family Medicine 12/20/21 Casino Duty Manager Relationship Specialty Start Date End Date Claudine Durán MD [address] [place] [address] PCP - General Internal Medicine 03/02/16 Will Hurley [address] [place] [address], [place] [address] Referring Rheumatology 04/09/18 Lulú Ramos RN [address] [place] [address] Heel Se[employer] Family Medicine 12/20/21 Casino Duty Manager Relationship Specialty Start Date End Date Claudine Durán MD [address] [place] [address] PCP - General Internal Medicine 03/02/[address] [facility] [place] [address] Referring Rheumatology 04/09/18 Lulú Ramos, PAULA [address] [place] [address] Heel Se[employer] Family Medicine 12/20/21 Casino Duty Manager Relationship Specialty Start Date End Date Claudine Durán MD [address] [place] [address] PCP - General Internal Medicine 03/02/16 Will Hurley [address] [facility] [place] [address] Referring Rheumatology 04/09/18 Ilda Miller, RN [address] [place] [address] Heel Seat Fitter Machine 07/27/22 Casino Duty Manager Relationship Specialty Start Date End Date Claudine Durán MD [address] [place] [address] PCP - General Internal Medicine 03/02/16 Will Hurley [address] [place] [address] Referring Rheumatology 04/09/18 Ilda Miller RN [address] [place] [address] Heel Seat Fitter Machine 07/27/22 Casino Duty Manager Relationship Specialty Start Date End Date Claudine Durán MD [address] [place] [address] PCP - General Internal Medicine 03/02/16 Will Hurley [address] [facility] [place] [address] Referring Rheumatology 04/09/18 Ilda Miller RN [address] [place] [address] Heel Seat Fitter Machine 07/27/22 Casino Duty Manager Relationship Specialty Start Date End Date Claudine Durán MD [address] [facility] [place] [address] PCP - General Internal Medicine 03/02/16 Will Hurley [address] [facility] [place] [address] Referring Rheumatology 04/09/18 Ilda Miller, PAULA [address] [place] [address] Heel Seat Fitter Machine 07/27/22 Casino Duty Manager Relationship Specialty Start Date End Date Claudine Durán MD [address] [facility], [place] [address] PCP - General Internal Medicine 03/02/16 Will Hurley [address] [facility] [place] [place] [address] Referring Rheumatology 04/09/18 Ilda Miller RN [address] [place] [address] Heel Seat Fitter Machine 07/27/22 Casino Duty Manager Relationship Specialty Start Date End Date Claudine Durán MD [address] [facility], [place] [address] PCP - General Internal Medicine 03/02/16 Will Hurley [address] [facility] [address] Referring Rheumatology 04/09/18 Ilda Miller, PAULA [address] [place] [address] Heel Seat Fitter Machine 07/27/22 Casino Duty Manager Relationship Specialty Start Date End Date Claudine Durán MD [address] [facility], [place] [address] PCP - General Internal Medicine 03/02/16 Will Hurley [address] [facility] [place] [address] Referring Rheumatology 04/09/18 Ilda Miller, RN [address] [place] [address] Heel Seat Fitter Machine 07/27/22 Casino Duty Manager Relationship Specialty Start Date End Date Claudine Durán MD [address] [place] [address] PCP - General Internal Medicine 03/02/16 Will Hurley [address] [facility] [place] [address] Referring Rheumatology 04/09/18 Ilda Miller RN [address] [place] [address] Heel Seat Fitter Machine 07/27/22 Casino Duty Manager Relationship Specialty Start Date End Date Claudine Durán MD [address] [place] [address] PCP - General Internal Medicine 03/02/16 Will Hurley [address] [facility] [place] [address] Referring Rheumatology 04/09/18 Ilda Miller, PAULA [address] [place] [address] Heel Seat Fitter Machine 07/27/22 Casino Duty Manager Relationship Specialty Start Date End Date Claudine Durán MD [address] [facility], [place] [address] [phone] PCP - General Internal Medicine 03/02/16 Will Hurley [address] [place] [address] Referring Rheumatology 04/09/18 Ilda Miller, RN [address] [place] [address] Heel Seat Fitter Machine 07/27/22 Casino Duty Manager Relationship Specialty Start Date End Date Claudine Durán MD [address] [facility], [place] [address] PCP - General Internal Medicine 03/02/16 Will Hurley [address] [facility] [place] [address] Referring Rheumatology 04/09/18 Ilda Miller, PAULA [address] [place] [address] Heel Seat Fitter Machine 07/27/22 Casino Duty Manager Relationship Specialty Start Date End Date Cluadine Durán MD [address] [place] [address] PCP - General Internal Medicine 03/02/16 Will Hurley [address] [place] [address] Referring Rheumatology 04/09/18 Ilda Miller, PAULA [address] [place] [address] Heel Seat Fitter Machine 07/27/22 Casino Duty Manager Relationship Specialty Start Date End Date Claudine Durán MD [address] [place] [address] PCP - General Internal Medicine 03/02/16 Will Hurley [address] [facility], [place] [address] Referring Rheumatology 04/09/18 Lulú Ramos, RN [address] [place] [address] Heel Seat Fitter Machine Family Medicine 12/20/2107/26 Casino Duty Manager Relationship Specialty Start Date End Date Claudine Durán MD [address] [facility], [place] [address] PCP - General Internal Medicine 03/02/16 Will Hurley [address] [facility] [place] [address] Referring Rheumatology 04/09/18 Ilda Miller RN [address] [place] [address] Heel Seat Fitter Machine 07/27/22 Casino Duty Manager Relationship Specialty Start Date End Date Claudine Durán MD [address] [facility], [place] [address] PCP - General Internal Medicine 03/02/16 Will Hurley [address] [facility] [place] [address] Referring Rheumatology 04/09/18 Ilda Miller RN [address] [place] [address] Heel Seat Fitter Machine 07/27/22 Casino Duty Manager Relationship Specialty Start Date End Date Claudine Durán MD [address] [place] [address] PCP - General Internal Medicine 03/02/16 Will Hurley [address] [place] [address] Referring Rheumatology 04/09/18 Ilda Miller, PAULA [address] [place] [address] Heel Seat Fitter Machine 07/27/22 Lynne Maynard, finishing frame runner Circulation Analyst 03/26/23 FOR RECORDS PERTAINING TO PATIENTS WHO [...] BE BASED ON THE PRIMARY CLINICAL RECORDS. [facility] [employer] [facility]. provides no warranty or guarantee of the accuracy or completeness of information in this document.
--- NOTE | 2023-03-31 21:33 | ECHOCS_ITS ---
Reason For Study: Right Heart Failure Procedure This was a 2D Doppler, Color Flow transthoracic echocardiogram. Exam performed portable in patient room. Left Ventricle Normal LV size. The estimated ejection fraction is 70 %. Unable to assess diastolic dysfunction. No regional wall motion abnormalities noted. Right Ventricle Normal RV size. Normal systolic function. Atria The left atrium is severely enlarged. Normal right atrium. No doppler evidence for ASD. Mitral Valve There is no mitral valve stenosis. No mitral valve insufficiency. Tricuspid Valve There is no tricuspid stenosis. Trivial tricuspid valve insufficiency. Pulmonary artery systolic pressure is 45 mmHg. Aortic Valve Trisinus/trileaflet aortic valve. Severe diffuse aortic valve thickening. Severe aortic stenosis. No aortic valve insufficiency. Pulmonic Valve There is no pulmonic valvular stenosis. No pulmonic valve insufficiency. Great Vessels Normal aortic root. Pericardium/Pleural No pericardial effusion. MMode/2D Measurements & Calculations LVIDd: 4.1 cm IVSd: 0.74 cm LVOT diam: 1.9 cm LVIDs: 2.6 cm LVPWd: 0.79 cm LVOT area: 2.7 cm2 FS: 36.6 % Ao root diam: 3.1 cm LAV(MOD-bp): 85.7 ml LA A4 area: 25.9 cm2 LA dimension: 4.1 cm LAV(MOD-bp) Indexed: 54.5 ml/m2 LAV(MOD-sp2): 84.4 ml LAV(MOD-sp4): 84.3 ml Time Measurements MV dec time: 0.39 sec Doppler Measurements & Calculations MV E max fady: 165.7 cm/sec Lat Peak E' Fady: 4.2 cm/sec Med Peak E' Fady: 6.2 cm/sec MV A max fady: 192.2 cm/sec E/E' lat: 39.5 E/E' med: 26.8 MV E/A: 0.86 MV V2 max: 238.2 cm/sec MV P1/2t max fady: 196.4 cm/sec Ao V2 max: 432.9 cm/sec MV max P.7 mmHg MV P1/2t: 125.4 msec Ao max P.0 mmHg MV V2 mean: 133.1 cm/sec MV dec slope: 458.9 cm/sec2 Ao V2 mean: 275.7 cm/sec MV mean P.2 mmHg MVA(P1/2t): 1.8 cm2 Ao mean P.4 mmHg MV V2 VTI: 64.0 cm Ao V2 VTI: 90.7 cm MVA(VTI): 1.3 cm2 AV (velocity ratio): 0.35 RUBY(I,D): 0.95 cm2 RUBY(V,D): 0.85 cm2 LV V1 max: 134.9 cm/sec MR max fady: 291.8 cm/sec SV(LVOT): 85.9 ml LV V1 max P.3 mmHg MR max P.1 mmHg LV V1 mean P.4 mmHg LV V1 mean: 98.6 cm/sec LV V1 VTI: 31.5 cm PA V2 max: 86.1 cm/sec TR max fady: 315.1 cm/sec PA V2 mean: 59.5 cm/sec TR max P.7 mmHg ECHO/Echo Complete W/ Contrast Interpretation Summary The estimated ejection fraction is 70 %. Unable to assess diastolic dysfunction. The left atrium is severely enlarged. Severe aortic stenosis. Ordering Physician: Laine Veras Performed By: Maurilio Hernandez RCS
[2023-03-31 21:38] VITALS: BMI 21.1
--- NOTE | 2023-03-31 22:10 | RAD_ITS ---
INDICATION: R ankle pain after fall EXAMINATION/TECHNIQUE: X-RAY - RIGHT XR Ankle Min 3 Views COMPARISON: None. FINDINGS: No acute fracture or malalignment. No blastic or lytic lesions. Mild degenerative changes of the hindfoot an ankle. Soft tissue swelling of the ankle. RAD/Ankle min 3 Views IMPRESSION: Soft tissue swelling without obvious fracture. Electronically Signed: Franko Galarza MD at 23:54 EST ,
[2023-03-31 22:43] LABS: Erythrocyte Sedimentation Rate 7 mm/hr (0-30)
[2023-03-31] MEDS: Potassium Chloride Oral Tablet 20 MEQ 40 MEQ PO (23:01)
[2023-03-31] MEDS: Gabapentin 300 MG Capsule PO (23:02)
[2023-03-31] MEDS: 0.9% Normal Saline (1000mL) 1,000 ML 50 ML IV (23:06)
[2023-03-31] MEDS: levoFLOXacin IV 750 MG/150 ML BAG 100 MG IV (23:06)
[2023-03-31] MEDS: CLARIFY ORDER 1 EACH NOTE (23:15)
[2023-04-01] VITALS (16 sets, daily range): BP systolic 85–109; BP diastolic 42–66; PULSE 66–93; RESP 16–22; TEMP 36.3–37.4; O2SAT 96–100; BMI 21.1
[2023-04-01 05:53] LABS: Absolute Lymphocyte Count 0.55 X10^3/uL (0.83-4.51); Absolute Neutrophil Count 10.3 X10^3/uL (2.0-7.7); Basophil# 0.01 X10^3/uL; Basophil% 0.1 % (0-1); Eosinophil# 0.02 X10^3/uL; Eosinophils% 0.2 % (0-5); Hematocrit 19.8 % (37-47); Hemoglobin 6.5 g/dL (12.0-15.0); Lymphocyte # 0.55 X10^3/ul (0.83-4.51); Lymphocyte % 4.7 % (19-41); Mean Corp Hgb Conc 32.8 g/dL (32-36); Mean Corpuscular Hgb 28.3 pg (27.0-32.0); Mean Corpuscular Volume 86.1 fL (81-99); Mean Platelet Vol. 10.2 fl (6.2-12.0); Monocyte# 0.66 X10^3/uL; Monocyte% 5.6 % (0-10); NRBC Flagged by Analyzer 0 % (0-5); Neutrophil # 10.34 X10^3/uL (2.7-7.7); Neutrophil % 88.5 % (47-70); POSITIVE COUNT YES; POSITIVE DIFFERENTIAL YES; POSITIVE MORPHOLOGY YES; Platelet Count 61 K/mm3 (150-450); RBC Distribution Width CV 24.4 % (11.6-14.6); White Blood Count 11.7 K/mm3 (4.4-11.0)
[2023-04-01 06:05] LABS: International Normalized Ratio 1.5; Prothrombin Time (Protime)PT. 18.3 SECONDS (11.7-14.9)
[2023-04-01 06:12] LABS: ALB/GLOB Ratio 0.8 RATIO (0.9-2.4); AST(SGOT) 23 U/L (15-37); Alanine Aminotransfer ALT/SGPT 42 U/L (13-56); Alkaline Phosphatase 87 U/L (45-117); Anion Gap 5 (5-15); BUN 27 mg/dL (7-18); Chloride 101 mmol/L (98-107); Creatinine, Serum 0.49 mg/dL (0.55-1.02); Differential Indicated SCAN CRITERIA MET; EST Glomerular Filtration Rate 130 mL/min (>60); Est Glom Filt Rate - Afr Amer 158 mL/min (>60); Estimated Creatinine Clearance 50.26 ml/min; Globulin 2.5 g/dL (2.2-4.2); Glucose 89 mg/dL (74-106); Magnesium 2.1 mg/dL (1.6-2.6); Protein, Total 4.5 g/dL (6.4-8.2); Sodium Level 135 mmol/L (136-145)
--- NOTE | 2023-04-01 06:42 | PCM.PN.HOSP ---
Reason for Visit Reason for Visit: Diagnoses Cellulitis, unspecified (03/31/23) Rheumatoid arthritis, unspecified (03/31/23) Weakness (03/31/23) Localized edema (03/31/23) Personal history of other venous thrombosis and embolism (03/31/23) Subjective Subjective Patient with improvement to bilateral lower extremity swelling, right less swollen than left however and general serous weeping has also lessened. Patient still with notable tenderness palpation right lower extremity worse than left. Discussed with patient unfortunately this a.m. hemoglobin decreased to 6.5 with plan for PRBC administration and workup for etiology of drop with possible need for GI evaluation if guaiac positive. Discussed plan of care at this time which included clears now with n.p.o. status at midnight and transition to IV Protonix. Plan for continued serial H&H's. Hold on Coumadin and Lovenox at this time but given recent history of VTE noted to patient may require addition of heparin drip depending on timeline. Discussed with patient also planned addition of duplex ultrasounds as patient was subtherapeutic upon her presentation as lower extremity pain could also be coupled with a new clot in the leg. Patient denies fevers, chills, nausea, emesis, abdominal pain, chest pain or dyspnea. Objective Data Objective Data Vital Signs: Vital Signs Temp Pulse Resp BP Pulse Ox O2 Del Method 98.5 F 78 18 104/60 98 Room Air 04/01/23 02:00 04/01/23 02:00 04/01/23 02:00 04/01/23 02:00 04/01/23 02:00 04/01/23 02:00 Oxygen Delivery Method Room Air Weight: 119 lb 4.321 oz Body Mass Index (BMI) 21.1 Intake & Output: Intake and Output for Last 24 Hours 03/30/23 03/31/23 04/01/23 23:59 23:59 23:59 Intake Total 550 / 550 150 / 150 Balance 550 / 550 150 / 150 Lab / Micro Data 04/01/23 05:14 04/01/23 05:14 Labs: Laboratory Results - last 24 hr 03/31/23 18:12: WBC 19.4 H, RBC 2.87 L, Hgb 8.3 L, Hct 24.9 L, MCV 86.8, MCH 28.9, MCHC 33.3, RDW Std Deviation 75.1 H, RDW Coeff of Catarino 24.1 H, Plt Count 95 L, MPV 10.4, Immature Gran % (Auto) 1.000 H, Neut % (Auto) 90.8 H, Lymph % (Auto) 3.0 L, [place] % (Auto) 5.0, Eos % (Auto) 0.1, Baso % (Auto) 0.1, Absolute Neuts (auto) 17.6 H, Absolute Lymphs (auto) 0.59 L, Nucleated RBC % 0, Differential Comment SCANNED, Platelet Estimate MOD DEC, Anisocytosis 2+, Microcytosis 1+, Macrocytosis 1+, ESR 7, PT 16.0 H, INR 1.3, Sodium 134 L, Potassium 3.2 L, Chloride 99, Carbon Dioxide 29.0, Anion Gap 6, BUN 31 H, Creatinine 0.75, Estim Creat Clear Calc 50.26, Est GFR (MDRD) Af Amer 96, Est GFR (MDRD) Non-Af 80, BUN/Creatinine Ratio 41.2 H, Glucose 108 H, Lactic Acid 1.4, Calcium 7.8 L, Total Creatine Kinase 125, C-React Prot Ext Range 35.90 H, B-Natriuretic Peptide 97.8 04/01/23 05:14: WBC 11.7 H, RBC 2.30 L, Hgb 6.5 L, Hct 19.8 L, MCV 86.1, MCH 28.3, MCHC 32.8, RDW Std Deviation 75.0 H, RDW Coeff of Catarino 24.4 H, Plt Count 61 L, MPV 10.2, Immature Gran % (Auto) 0.900, Neut % (Auto) 88.5 H, Lymph % (Auto) 4.7 L, [place] % (Auto) 5.6, Eos % (Auto) 0.2, Baso % (Auto) 0.1, Absolute Neuts (auto) 10.3 H, Absolute Lymphs (auto) 0.55 L, Nucleated RBC % 0, PT 18.3 H, INR 1.5, Sodium 135 L, Potassium 3.0 L, Chloride 101, Carbon Dioxide 29.0, Anion Gap 5, BUN 27 H, Creatinine 0.49 L, Estim Creat Clear Calc 50.26, Est GFR (MDRD) Af Amer 158, Est GFR (MDRD) Non-Af 130, BUN/Creatinine Ratio 55.0 H, Glucose 89, Calcium 7.0 L, Magnesium 2.1, Total Bilirubin 1.60 H, AST 23, ALT 42, Alkaline Phosphatase 87, Total Protein 4.5 L, Albumin 2.0 L, Globulin 2.5, Albumin/Globulin Ratio 0.8 L Radiography Diagnostic Testing: Radiology Impression Tibia/Fibula X-Ray 03/31/23 17:49 IMPRESSION: No acute radiographic abnormalities. Electronically Signed: Franko Galarza MD at 19:30 EST Reading Location ID and State: [email or web address] / [employer] , Service support , Chest X-Ray 03/31/23 18:32 IMPRESSION: No change from prior study. Electronically Signed: Franko Galarza MD at 19:29 EST Reading Location ID and State: [employer] / [place] Tel , Service support , Ankle X-Ray 03/31/23 22:10 IMPRESSION: Soft tissue swelling without obvious fracture. Electronically Signed: Franko Galarza MD at 23:54 EST Reading Location ID and State: [email or web address] / [place] Tel , Service support , Physical Exam Narrative Physical Examination: General: awake, alert, oriented to self, place and some recent activities, remains cooperative, seated upright in the PCU bed, NAD, fatigued, does not recall several aspects of her most recent admission prior but recalls hospitalist. Skin: normal color, turgor, no icterus, cyanosis except for various staged ecchymoses noted, BL LE with various denuded small regions likely secondary to stasis blisters with no current serous drainage but also some scattered petechiae, right lower extremity with circumferential area of stasis disease and likely overlapping erythema, she notes its improved. HEENT: AT/NC, EOMI, PERRLA, MMM. Lungs: Mildly diminished, decreased strong respiratory inspiratory effort, no distress, no rales, ronchi or wheezing; Heart: Regular rate and rhythm; no gallop, rub audible. Abdomen: soft, NTTP, ND, normal BS. Extremities: no cyanosis, no clubbing, see skin, right lower extremity notably tender to palpation but no marked pitting edema compared to left lower extremity with pedal to distal soto 1+ pitting edema. Neurological: patient awake, alert, oriented as noted, cognitive function intact to most questioning but she is not recalling several aspects of her most recent admission, cranial nerves grossly normal, moving all 4 extremities, strength moderately globally creased secondary to acute presentation. Psychiatric: affect appears appropriate, talkative but having difficulties recalling some of the aspects of her recent admission of note, no acute evidence of depressive or anxiety feelings. Assessment & Plan Assessment/Plan (1) Cellulitis: PLAN: Plan The patient is a 77 y/o F w/ PMHx: GERD, Rheumatoid Arthritis, Hx VTE (DVT, PE), Recent diagnosis Histoplasmosis, recent 03/21/33 evaluation at [facility] with transfer to [facility] secondary to concerns for complex bowel obstruction treated conservative, concerns for colitis administered cipro/flagyl, disseminated histoplasmosis treated with itraconazole, just prior to her presentation diagnosed COVID-19 with hypoxia treated with remdesivir and dexamethasone, temporary hold on her ARB/HCTZ secondary to rise in her Cr in addition to noted treated severe aortic stenosis and moderate pericardial effusion monitored without surgery with restart on her coumadin therapy with planned outpatient work-up, discharged from [facility] 03/25/23 with decline upon return to home, inability to safely care for self prompting presentation to the [facility] ED on 03/26/23 for SNF placement needs but improved and declined SNF placement again who now re-presents to the [facility] ED on 03/31/23 with history of worsened BL LE edema, weeping serous fluid and RLE redness/pain. #1. Right lower extremity Cellulitis with bilateral lower extremity swelling and serous drainage noted: Admitted to PCU, will maintain on IV Levaquin initiated upon admission given allergy history, currently no discharge but if onset low threshold to obtain wound culture/MRSA wound, ESR 7, CRP 35.90, plan repeat CBC in AM, continue affected extremity elevation above heart when seated and in bed, monitor erythema outline with VS checks, duplex ultrasound requested given recent history upon presentation of subtherapeutic INR. #2. Acute Anemia on chronic, unclear etiology, questionable GI bleed: Admission hemoglobin 8.3, vacillated during prior admission ranging 7-8, given drop requested PRBC administration, transition to clear liquids with n.p.o. status after midnight, guaiac requested as well as iron studies, maintained on IV PPI, will obtain serial H&H assessments, temporally holding Coumadin and Lovenox therapy however given recent history of VTE may need to initiate heparin drip and continue closely monitor. Will have Lasix in between PRBC units given concern for worsened lower extremity swelling with pending workup. Guaiac requested. If guaiac is positive then would initiate GI consultation. #3. Recent VTE: Patient with history DVT, PE, supposed to be on Coumadin however upon presentation her INR was subtherapeutic, initiated on Lovenox in addition to continued Coumadin with INR trending however as noted acute on chronic anemia 04/01/2023 with temporary hold on these agents with investigation for possible GI bleed. Given this history and as noted right lower extremity swelling with duplex bilateral lower extremity pending may need to consider starting heparin drip while closely monitoring hemoglobin with ongoing workup #2. #4. Increasing bilateral extremity edema, unclear etiology: Will attempt Dick wraps if patient able to tolerate, elevate lower extremity, echocardiogram requested per admitting physician, monitor ADAIR, judicious fluids given #1, #2 pending PRBC administration as noted, plan to administer Lasix in between PRBC units pending BP assessments. Duplex ultrasound bilateral lower extremity ordered as well given recent history of VTE not therapeutic on her Coumadin thus certainly could be an etiology as well. #5. Acute on chronic thrombocytopenia, possibly related with acute presentation #1: Admission platelet 95, repeat 11/01/24 platelet 61, previous admission lowest 134, will continue to closely monitor especially given VTE history and temporally holding Coumadin/Lovenox but may necessitate heparin drip as noted above. #6. Hypokalemia: Admission K+ 3.0, magnesium 2.1, supplementation given, repeat level in AM. #7. Adult failure to thrive, multifactorial, frequent falls with recent increased right ankle pain: Patient with significant failure to thrive, serial admissions including to tertiary facilities with several ongoing issues as noted above, plain film of the right ankle obtained with only soft tissue swelling, encouraged elevation, icing as needed, PT/OT/case management consult for discharge planning, follow-up with podiatry at discharge as needed. #8. Recent COVID-19 Viral Syndrome/COPD: Resolved acute illness, treated during that acute presentation with treated with remdesivir and dexamethasone, maintained on ATC budesonide therapy, PRN albuterol, encourage HOB, IS. #9. Recent disseminated histoplasmosis: Continue itraconazole solution 2 times daily and encouraged continued follow-up with Dr. Burger in 3 months #10. Recent Suspected Bowel Performation/Colitis: Treated with course ciprofloxacin and Flagyl regimen, follow-up as previously arranged per Surgery team [facility]. #11. Rheumatoid arthritis: Patient outpatient on Humira, methotrexate and leucovorin however this has been continued to be held secondary to a recent hospitalization in [facility] with disseminated histoplasmosis and concern for bowel perforation/colitis, resume once allowed per infectious disease. #12. Valvular heart disease with aortic stenosis with recent diagnosis moderate pericardial effusion: Recent evaluation in [facility], no intervention but close observation for moderate pericardial effusion noted at that time, continue to follow-up outpatient with cardiology and CT surgery team as needed. #13. GERD: As noted transitioned to IV PPI given acute on chronic anemia, investigating etiology. #14. Hypertension: Recent presentation with hold on irbesartan/hydrochlorothiazide until repeat renal function assessment and BP trending. Upon current presentation BP low normal range. Will continue to hold regimen. #15. Former tobacco use: Encourage continued tobacco cessation. #16. DVT prophylaxis: SCDs, holding coumadin/lovenox as noted with acute on chronci anemia pending investigation but low threshold to add heparin drip. #17. CODE status: Full Code status. Charges/Coding Visit Charges Inpatient E&M: 19341 Subs Hosp L3
--- NOTE | 2023-04-01 06:43 | VDLE_ITS ---
Reason For Study: Bilateral leg swelling RIGHT LEFT GSV is normal. GSV is normal. CFV is compressible, spontaneous, phasic, CFV is compressible, spontaneous, phasic, competent and demonstrates normal competent, and demonstrates normal augmentation. augmentation. FV is compressible, spontaneous, phasic, FV is compressible, spontaneous, phasic, competent and demonstrates normal competent and demonstrates normal augmentation. augmentation. POP V is compressible, spontaneous, phasic, POP V is compressible, spontaneous, phasic, competent and demonstrates normal competent and demonstrates normal augmentation. augmentation. T/P Trunk is compressible. T/P Trunk is compressible. PTV is compressible. PTV is compressible. RT PerV is compressible. LT PerV is compressible. Nonvascularized structure noted in the right popliteal fossa measures 0.92 x 2.99 x 4.39 cm. Procedure This is a venous duplex using B-mode, color flow and spectral Doppler. Exam performed portable in patient room. A preliminary report was called and/or faxed to [facility]. VL/Venous Duplex US - Simón Extrem Interpretation Summary Deep veins of the bilateral lower extremity are patent and compressible segment ally. There is no evidence of bilateral lower extremity deep vein thrombosis. The bilateral great saphenous veins appear patent and compressible segmentally. Ordering Physician: Alisa Mathew Referring Physician: Deyanira Pak M.D. Performed By: Zhanna Kramer RVT
[2023-04-01] MEDS: Potassium Chloride Oral Tablet 20 MEQ 40 MEQ PO (06:51)
[2023-04-01 07:05] LABS: Anisocytosis 3+
[2023-04-01] MEDS: Budesonide Respules 0.5 MG/2 ML AMPUL.NEB. INHALATION ×2 (07:21→20:33)
[2023-04-01] MEDS: Ipratropium/Albuterol Sulfate 3 ML AMPUL.NEB INHALATION ×2 (07:21→20:33)
[2023-04-01 08:25] LABS: Ferritin 268 ng/mL (8-252); Iron 21 ug/dL (50-170); Iron Binding Capacity,Total 243 ug/dL (250-450); PERCENT IRON SATURATION 8.6 % (15.0-55.0)
[2023-04-01] MEDS: Fluticasone 0.05% 1 SPRAY NASAL.SRY NASAL (08:27)
[2023-04-01] MEDS: Gabapentin 300 MG Capsule PO ×2 (08:33→20:43)
[2023-04-01] MEDS: Pantoprazole Sodium 40 MG in 0.9% Normal Saline (100mL MB+) 100 ML 330 MG IV ×2 (08:33→20:43)
[2023-04-01] MEDS: Acetaminophen 325 MG Tablet 650 MG PO (11:47)
[2023-04-01 16:49] LABS: Hematocrit 27.5 % (37-47); Hemoglobin 9.1 g/dL (12.0-15.0)
--- NOTE | 2023-04-01 16:58 | EX.PCM.CON.G ---
HPI Consult Data Date of Consult: 04/01/23 HPI Narrative Reason for Consultation: Anemia HPI Narrative: ALENA BUSTAMANTE, is a 77-year-old female history of COPD, Severe . GERD. DVT and PE on Coumadin, histoplasmosis of the lung, RA who presented to [facility] ED 03/31/2023 with bilateral lower extremity edema. She was seen here 03/28/2023 with lower extremity edema. She was initially seen here 03/26/2023 for shortness of breath and inability to care for herself at home after a recent hospital stay at [facility] from which she was discharged on Cipro and Flagyl as well as itraconazole and she was treated also with remdesivir and dexamethasone for COVID-19. Patient was evaluated in the ED and due to her failure to thrive and inability to care for self she was admitted. Patient did well and was feeling better the following day and was discharged home 03/27. She Re-presented to the ED 03/28 with bilateral lower extremity edema, she was not hypoxic and her labs were essentially unchanged from prior so she was placed on 20 mg of Lasix daily and strongly advised to follow-up with her primary care physician. She started the Lasix yesterday but re-presented today for lower extremity edema. In the ED with blood cell count slightly higher than previous at 19.4 and potassium slightly low at 3.2 but lab workup fairly unremarkable otherwise and patient vitally stable in ED. She was noted on physical exam to have right lower extremity cellulitis and tib-fib x-ray obtained which was unremarkable, she was given some IV fluids and a dose of clindamycin and hospitalist contacted for admission due to her difficulty caring for herself, lower extremity edema, and lower extremity cellulitis. Since being in the hospital she has had improvement to bilateral lower extremity swelling, right less swollen than left however and general serous weeping has also lessened. However she is still with notable tenderness palpation right lower extremity worse than left. I was asked to see her because her hemoglobin decreased to 6.5. [facility] Medical History (Updated 04/02/23 @ 17:[address] Carmona Friend, DO) Colitis COPD (chronic obstructive pulmonary disease) DVT (deep venous thrombosis) Former smoker Histoplasmosis Pulmonary embolism Rheumatoid arthritis Home Medications adalimumab 40 mg/0.4 mL subcutaneous pen kit (Humira(CF) Pen) 40 mg subcut Q14D 03/19/23 [History Last Taken Unknown] albuterol sulfate 90 mcg/actuation aerosol inhaler 2 puff inhalation Q4H PRN shortness of breath or wheezing 03/19/23 [History Last Taken Unknown] budesonide-formoterol HFA 160 mcg-4.5 mcg/actuation aerosol inhaler (Symbicort) 2 puff inhalation Q12H 03/19/23 [History Last Taken Unknown] fluticasone propionate 50 mcg/actuation nasal spray,suspension 1 spray intranasal DAILY allergies 03/19/23 [History Last Taken Unknown] gabapentin 300 mg capsule 300 mg PO Q12H pain 03/19/23 [History Last Taken Unknown] irbesartan 150 mg-hydrochlorothiazide 12.5 mg tablet 1 tab PO DAILY 03/19/23 [History Last Taken Unknown] multivitamin (Daily Multi-Vitamin tablet) 1 tab PO DAILY supplement 03/19/23 [History Last Taken Unknown] naproxen 500 mg tablet 500 mg PO Q12H 03/19/23 [History Last Taken Unknown] pantoprazole 40 mg tablet,delayed release 40 mg PO DAILY 03/19/23 [History Last Taken Unknown] potassium chloride 20 mEq tablet,extended release(part/cryst) (Klor-Con M) 20 meq PO BID 03/19/23 [History Last Taken Unknown] tiotropium bromide 2.5 mcg/actuation mist for inhalation (Spiriva Respimat) 2 puff inhalation Q24H 03/19/23 [History Last Taken Unknown] vitamins A,C,A-bfqn-jcoqui 2,148 mcg-113 mg-45 mg-17.4 mg tablet (PreserVision AREDS) 2 tab PO BID 03/19/23 [History Last Taken Unknown] warfarin 5 mg tablet 5 mg PO .COMPLEX 03/19/23 [History Last Taken Unknown] cholecalciferol (vitamin D3) 25 mcg (1,000 unit) capsule 25 mcg PO DAILY 03/26/23 [History Last Taken Unknown] ciprofloxacin HCl 500 mg tablet 500 mg PO Q12H 03/26/23 [History Last Taken Unknown] dexamethasone 6 mg tablet 6 mg PO DAILY 03/26/23 [History Last Taken Unknown] itraconazole 10 mg/mL oral solution 100 mg PO Q8H unknown 03/26/23 [History Last Taken Unknown] loperamide 2 mg capsule (Anti-Diarrheal (loperamide)) 4 mg PO TID diarrhea 03/26/23 [History Last Taken Unknown] metronidazole 500 mg tablet 500 mg PO TID 03/26/23 [History Last Taken Unknown] vitamin A-vitamin C-vit E-min tablet (Ocutabs tablet) 2 tab PO DAILY 03/26/23 [History Last Taken Unknown] furosemide 20 mg tablet (Lasix) 20 mg PO DAILY 14 days #14 tabs 03/28/23 [Rx Last Taken Unknown] Allergy/AdvReac Type Severity Reaction Status Date / Time Penicillins Allergy Severe Anaphylaxis Verified 03/28/23 16:32 Surgical History History of embolic filter insertion Hx of foot surgery Social History Smoking Status: Former smoker ROS ROS Narrative General: Denies fever/chills HENT: Denies headache, denies stuffy nose, denies sore throat EYES: Denies changes in vision Resp: Denies cough, chronic shortness of breath Cardiac: Denies chest pain GI: Denies abdominal pain, denies changes in bowel, denies nausea/vomiting : Denies changes in urination Extremity: Increased swelling in bilateral lower extremities MSK: Some general weakness Neuro: Denies any numbness/tingling Heme: Denies any bleeding or bruising Skin: Some right lower extremity erythema and some petechiae in both lower extremities Psychiatric: No complaints voiced Physical Exam Narrative Physical Examination: General: awake, alert, oriented to self, place and some recent activities, remains cooperative, seated upright in the PCU bed, NAD, fatigued, does not recall several aspects of her most recent admission prior but recalls hospitalist. Skin: normal color, turgor, no icterus, cyanosis except for various staged ecchymoses noted, BL LE with various denuded small regions likely secondary to stasis blisters with no current serous drainage but also some scattered petechiae, right lower extremity with circumferential area of stasis disease and likely overlapping erythema, she notes its improved. HEENT: AT/NC, EOMI, PERRLA, MMM. Lungs: Mildly diminished, decreased strong respiratory inspiratory effort, no distress, no rales, ronchi or wheezing; Heart: Regular rate and rhythm; no gallop, rub audible. Abdomen: soft, NTTP, ND, normal BS. Extremities: no cyanosis, no clubbing, see skin, right lower extremity notably tender to palpation but no marked pitting edema compared to left lower extremity with pedal to distal soto 1+ pitting edema. Neurological: patient awake, alert, oriented as noted, cognitive function intact to most questioning but she is not recalling several aspects of her most recent admission, cranial nerves grossly normal, moving all 4 extremities, strength moderately globally creased secondary to acute presentation. Psychiatric: affect appears appropriate, talkative but having difficulties recalling some of the aspects of her recent admission of note, no acute evidence of depressive or anxiety feelings. Medical Records Data Medical Nutrition Assessment Dietitian: Malnutrition Criteria Met Start: 04/01/23 12:03 Freq: Status: Active Protocol: Document 04/01/23 12:03 (Rec: 04/01/23 12:03 [id number]) Nutrition Malnutrition Evidence of Malnutrition Exists Yes Malnutrition (severe): Acute Illness/Injury Evidenced By Suboptimal Energy Intake ( Severe),Weight Loss (Severe) Clinical Problem Acute Disease or Injury Related Malnutrition Etiology severe, acute malnutrition r/t recent COVID, hospitalizations, GI dysfunction Signs/Symptoms as evidenced by unintentional 4kg/7% wt loss x1 week, estimated PO intake meeting < 50% of estimated energy needs >1 week Status Active Problem Recommendation Dietitian Recommendations/Changes recommend advance diet as tolerated to transitional; ensure w/ medpass when diet advanced Lab / Micro Data 04/02/23 07:10 04/02/23 07:10 Labs: Laboratory Results - last 24 hr 04/01/23 20:22: Hgb 9.9 L, Hct 29.9 L 04/02/23 07:10: WBC 9.4, RBC 3.43 L, Hgb 9.8 L, Hct 29.0 L, MCV 84.5, MCH 28.6, MCHC 33.8, RDW Std Deviation 70.3 H, RDW Coeff of Catarino 23.1 H, Plt Count 40 L*, MPV 10.3, Immature Gran % (Auto) 0.900, Neut % (Auto) 86.6 H, Lymph % (Auto) 6.4 L, [place] % (Auto) 5.4, Eos % (Auto) 0.6, Baso % (Auto) 0.1, Absolute Neuts (auto) 8.2 H, Absolute Lymphs (auto) 0.60 L, Nucleated RBC % 0, Differential Comment COMMENT, Diff Path Review May foll, Platelet Estimate MKD DEC, Anisocytosis 1+, PT 15.8 H, INR 1.3, Sodium 134 L, Potassium 3.6, Chloride 102, Carbon Dioxide 27.0, Anion Gap 5, BUN 13, Creatinine 0.52 L, Estim Creat Clear Calc 50.26, Est GFR (MDRD) Af Amer 149, Est GFR (MDRD) Non-Af 123, BUN/Creatinine Ratio 25.1 H, Glucose 86, Calcium 7.2 L, Total Bilirubin 1.70 H, AST 20, ALT 35, Alkaline Phosphatase 84, Total Protein 4.9 L, Albumin 2.0 L, Globulin 2.9, Albumin/Globulin Ratio 0.7 L Imaging Radiology Impression Echocardiogram 03/31/23 21:33 Interpretation Summary The estimated ejection fraction is 70 %. Unable to assess diastolic dysfunction. The left atrium is severely enlarged. Severe aortic stenosis. Ordering Physician: Laine Veras Performed By: Maurilio Hernandez RCS Venous Doppler Study 04/01/23 06:43 Interpretation Summary Deep veins of the bilateral lower extremity are patent and compressible segmentally. There is no evidence of bilateral lower extremity deep vein thrombosis. The bilateral great saphenous veins appear patent and compressible segmentally. Ordering Physician: Alisa Mathew Referring Physician: Deyanira Pak M.D. Performed By: Zhanna Kramer RVT Assessment & Plan Assessment/Plan (1) Cellulitis: (2) Anemia: PLAN: Plan The patient is a 77 y/o F w/ PMHx: GERD, Rheumatoid Arthritis, Hx VTE (DVT, PE), Recent diagnosis Histoplasmosis, recent 03/21/33 evaluation at [facility] with transfer to [facility] secondary to concerns for complex bowel obstruction treated conservative, concerns for colitis administered cipro/flagyl, disseminated histoplasmosis treated with itraconazole, just prior to her presentation diagnosed COVID-19 with hypoxia treated with remdesivir and dexamethasone. Acute Anemia on chronic, unclear etiology, possibly secondary to GI bleed: Admission hemoglobin 8.3 and is down to 6.5. Differential diagnosis does include angiodysplasia, malignancy, ulcerations, peptic ulcer disease, H. pylori infection. She should undergo an upper endoscopy to evaluate upper GI tract. She was explained alternatives, risk, benefits include not withstanding bleeding, infection, sepsis, perforation, need for emergent urgent . She have an ASA of 3 Charges/Coding Visit Charges Inpatient E&M: 49482 Init Hosp L3
[2023-04-01 20:29] LABS: Hematocrit 29.9 % (37-47); Hemoglobin 9.9 g/dL (12.0-15.0)
[2023-04-01] MEDS: oxyCODONE 5 MG Tablet PO (21:00)
[2023-04-01] MEDS: levoFLOXacin IV 750 MG/150 ML BAG 100 MG IV (21:06)
[2023-04-02] VITALS (12 sets, daily range): BP systolic 91–120; BP diastolic 51–76; PULSE 73–85; RESP 16–18; TEMP 36.3–37.4; O2SAT 95–99; BMI 21.9
[2023-04-02] MEDS: Ipratropium/Albuterol Sulfate 3 ML AMPUL.NEB INHALATION ×2 (07:02→14:37)
[2023-04-02] MEDS: Budesonide Respules 0.5 MG/2 ML AMPUL.NEB. INHALATION (07:02)
[2023-04-02 08:31] LABS: Absolute Neutrophil Count 8.2 X10^3/uL (2.0-7.7); Basophil# 0.01 X10^3/uL; Basophil% 0.1 % (0-1); Eosinophil# 0.06 X10^3/uL; Eosinophils% 0.6 % (0-5); Hemoglobin 9.8 g/dL (12.0-15.0); Lymphocyte % 6.4 % (19-41); Mean Corp Hgb Conc 33.8 g/dL (32-36); Mean Corpuscular Hgb 28.6 pg (27.0-32.0); Mean Corpuscular Volume 84.5 fL (81-99); Mean Platelet Vol. 10.3 fl (6.2-12.0); Monocyte# 0.51 X10^3/uL; Monocyte% 5.4 % (0-10); NRBC Flagged by Analyzer 0 % (0-5); Neutrophil # 8.15 X10^3/uL (2.7-7.7); Neutrophil % 86.6 % (47-70); POSITIVE COUNT YES; POSITIVE DIFFERENTIAL YES; POSITIVE MORPHOLOGY YES; Platelet Count 40 K/mm3 (150-450); RBC Distribution Width CV 23.1 % (11.6-14.6); RBC Distribution Width SD 70.3 fl (35.1-43.9); Red Blood Count 3.43 M/mm3 (4.2-5.4); White Blood Count 9.4 K/mm3 (4.4-11.0)
[2023-04-02 08:35] LABS: Differential Indicated SCAN CRITERIA MET
[2023-04-02 08:50] LABS: International Normalized Ratio 1.3; Prothrombin Time (Protime)PT. 15.8 SECONDS (11.7-14.9)
[2023-04-02 09:10] LABS: ALB/GLOB Ratio 0.7 RATIO (0.9-2.4); AST(SGOT) 20 U/L (15-37); Alanine Aminotransfer ALT/SGPT 35 U/L (13-56); Alkaline Phosphatase 84 U/L (45-117); Anion Gap 5 (5-15); BUN 13 mg/dL (7-18); BUN/Creat Ratio 25.1 RATIO (10-20); Calcium,Total 7.2 mg/dL (8.5-10.1); Chloride 102 mmol/L (98-107); Creatinine, Serum 0.52 mg/dL (0.55-1.02); EST Glomerular Filtration Rate 123 mL/min (>60); Est Glom Filt Rate - Afr Amer 149 mL/min (>60); Estimated Creatinine Clearance 50.26 ml/min; Globulin 2.9 g/dL (2.2-4.2); Glucose 86 mg/dL (74-106); Potassium 3.6 mmol/L (3.5-5.1); Protein, Total 4.9 g/dL (6.4-8.2); Sodium Level 134 mmol/L (136-145)
[2023-04-02] MEDS: Fluticasone 0.05% 1 SPRAY NASAL.SRY NASAL (09:30)
[2023-04-02] MEDS: Pantoprazole Sodium 40 MG in 0.9% Normal Saline (100mL MB+) 100 ML 330 MG IV ×2 (09:31→21:32)
[2023-04-02] MEDS: Gabapentin 300 MG Capsule PO ×2 (12:22→21:28)
--- NOTE | 2023-04-02 12:30 | IMM_PTH ---
PATHOLOGY RESULTS PATIENT: ALENA BUSTAMANTE LOC: [facility] U#:[id number] AGE/SX: 77/F ROOM: [facility] RE03/31/[address]: Dr. Michael Chan DO : 1945 BED: 1 DIS: 04/05/2023 SPEC #: [id number] RECD: 04/03/23 12:21 STATUS: AMMY REQ #: [id number] SHAKA: 04/02/23 12:[address]: Ra Estebanhsaan DEPT: IMMUNOHISTOCHEMISTRY RECD BY: Irma Neff ENTERED: 04/03/23 12:21 SP TYPE: IMMUNO OTHR DR: MD Dr. Deyanira Spencer MD Dr. Mark Tereletsky, DO Dr. Paige Pierce, MD Tissues: Stomach, NOS Procedures: H Pylori (initial) PHYSICIAN & INSTITUTION [place] [address] SPECIMEN INFORMATION: Tissue Source: Gastric antrum ulcer Clinical Info: GI bleed Specimen Number: [id number] CPT code: 46407 METHODOLOGY: Deparaffinized sections of prefer/formalin-fixed tissue or PAP/DQ stained slides are incubated with monoclonal/polyclonal antibodies/oligonucleotide probes. Localization is made via biotin free immunoperoxidase method. Appropriate controls are performed and reacted as expected. Results on target cell population are indicated in the following table: RESULTS: ANTIBODY / CLONE RESULT H Pylori (polyclonal) negative These tests were developed and their performance characteristics determined by [facility]. They may not have been cleared or approved by the U.S. Food and Drug Administration. The FDA has determined that such clearance or approval is not necessary. The above immunohistochemical/dualISH markers are ordered and reviewed by the Pathologist. INTERPRETATION: Gastric antrum ulcer, biopsy: Negative for Helicobacter pylori organisms. SJ:maria 04/04/2023
--- NOTE | 2023-04-02 12:30 | EGD_PTH ---
PATHOLOGY RESULTS PATIENT: ALENA BUSTAMANTE LOC: [facility] U#:[id number] AGE/SX: 77/F ROOM: [facility] RE03/31/[address]: Dr. Michael Chan DO : 1945 BED: 1 DIS: 04/05/2023 SPEC #: [id number] RECD: 04/02/23 18:07 STATUS: AMMY REKayden #: [id number] SHAKA: 04/02/23 12:[address]: Mathew Orellana DEPT: SURGICAL PATHOLOGY RECD BY: Esha Jordan ENTERED: 04/03/23 08:44 SP TYPE: EGD BIOPSY OTHR DR: MD Dr. Deyanira Spencer MD Dr. Mark Tereletsky, DO Dr. Paige Pierce, MD Tissues: Gastric mucous membrane Procedures: Surgery Specimen Level IV Comments: @ Ordering doctor for JOSE edited from to @ by SAM at 04/03/23 122 @ Submitting doctor edited from to @ by SAM at 04/03/23 1222 HEADER OPERATION: EGD PRE-OP DIAGNOSIS: GI bleed TISSUE SUBMITTED: Gastric antrum ulcer MICROSCOPIC DIAGNOSIS Gastric antrum ulcer, biopsy: Mild gastritis. See microscopic description and comment. JOAN:maria 04/04/2023 COMMENT The results of immunohistochemistry for Helicobacter pylori will be reported separately ([id number]). MICROSCOPIC DESCRIPTION Slides are reviewed. The specimen shows fragments of gastric mucosa with chronic inflammatory cell infiltrates in the lamina propria consisting of lymphocytes and plasma cells, consistent with mild chronic gastritis. Focal mucosal congestion and hemorrhage are also noted. GROSS DESCRIPTION Received in fixative is one container labeled with the patient's name and designated gastric antrum ulcer. The specimen consists of multiple irregular fragments of light odell soft tissue that in aggregate measure 2.0 x 0.5 x 0.1 cm. The specimen is totally submitted in one cassette. / AM:maria 04/03/2023 TC:3 CPT: 16010
[2023-04-02 14:02] LABS: Anisocytosis 1+; Platelet Estimate MKD DEC (ADEQ)
--- NOTE | 2023-04-02 14:19 | WOUNDNOTE ---
Was asked to see patient for wounds to bilateral lower legs. there are no open areas noted just some weeping from the left lower leg. serous drainage noted and some mild edema. gently washed legs and feet with soap and water. pat dry. applied dry dressings to the left lower leg and wrapped with kerlix and DANIELLA wrap. pt tolerated well. see skin photos.
--- NOTE | 2023-04-02 14:34 | WOUNDNOTE ---
skin photo: right lower leg
--- NOTE | 2023-04-02 14:34 | WOUNDNOTE ---
skin photo: left foot
--- NOTE | 2023-04-02 14:35 | WOUNDNOTE ---
skin photo: left lower leg
[2023-04-02] MEDS: Lactated Ringers 1,000 ML 15 ML IV (16:17)
--- NOTE | 2023-04-02 16:18 | SUR.PREOP ---
PATIENT'S LEFT FOREARM IV WAS LEAKING. UNABLE TO REMEDY IT. IV DISCONTINUED. ATTEMPTED AN IV IN THE LEFT WRIST AND INSTANTLY INFILTRATED AND BRUISED. I GOT AN IV IN THE LEFT FOREARM THAT INSTANTLY BRUISED BUT IS WORKING WELL. JAMEE MITCHELLSAFETY COUNSELOR NURSE CHECKED AREA AND HER OPINION WAS THAT IT WAS OK. SITE IS BRUISED BUT SOFT AND NOT PAINFUL TO THE PATIENT.
--- NOTE | 2023-04-02 17:10 | OP.CCLET_ITS ---
04/02/2023 Deyanira Pak [address] [place] [address] Re : Upper GI endoscopy procedure for [facility] Dear Dr. Pak This procedure was performed on Sunday, April 02, 2023. My impressions and recommendations are as follows: Impressions : - Normal esophagus. - Oozing gastric ulcers with pigmented material. Injected. Treated with a heater probe. - Non-bleeding gastric ulcers with no stigmata of bleeding. Biopsied. - Bile duodenitis. Recommendations : - Return patient to [facility] for ongoing care. - Advance diet as tolerated. - Continue present medications. - Await pathology results. My findings are described in the full procedure note, which is enclosed. If I can be of further assistance, please feel free to contact me at . Sincerely, Mathew Orellana, 04/02/2023 5:09:52 PM This report has been signed electronically.
--- NOTE | 2023-04-02 17:10 | OP.EGD_ITS ---
Patient Name: Haydee Gibbs Procedure Date: 04/02/2023 4:44 PM Date of : 1945 Age: 77 Procedure: Upper GI endoscopy Indications: Iron deficiency anemia Providers: Mathew Orellana DO Medicines: Monitored Anesthesia Care Patient Profile: This is a 77 year old female. Refer to note in patient chart for documentation of history and physical. Patient has symptoms of acute nausea. Complications: No immediate complications. Procedure: Pre-Anesthesia Assessment: - Prior to the procedure, a History and Physical was performed, and patient medications and allergies were reviewed. The patient is competent. The risks and benefits of the procedure and the sedation options and risks were discussed with the patient. All questions were answered and informed consent was obtained. Patient identification and proposed procedure were verified by the physician in the pre-procedure area. Mental Status Examination: alert and oriented. Airway Examination: normal oropharyngeal airway and neck mobility. Respiratory Examination: clear to auscultation. CV Examination: normal. Prophylactic Antibiotics: The patient does not require prophylactic antibiotics. Prior Anticoagulants: The patient has taken no anticoagulant or antiplatelet agents. ASA Grade Assessment: III - A patient with severe systemic disease. After reviewing the risks and benefits, the patient was deemed in satisfactory condition to undergo the procedure. The anesthesia plan was to use monitored anesthesia care (MAC). Immediately prior to administration of medications, the patient was re-assessed for adequacy to receive sedatives. The heart rate, respiratory rate, oxygen saturations, blood pressure, adequacy of pulmonary ventilation, and response to care were monitored throughout the procedure. The physical status of the patient was re-assessed after the procedure. After obtaining informed consent, the endoscope was passed under direct vision. Throughout the procedure, the patient's blood pressure, pulse, and oxygen saturations were monitored continuously. The gastroscope was introduced through the mouth, and advanced to the second part of duodenum. The upper GI endoscopy was accomplished without difficulty. The patient tolerated the procedure well. Scope In: 4:52:49 PM Scope Out: 4:56:55 PM Total Procedure Duration Time 0 hours 4 minutes 6 seconds Findings: The examined esophagus was normal. Few oozing linear gastric ulcers with pigmented material were found in the gastric antrum and at the pylorus. The largest lesion was 9 mm in largest dimension. Area was successfully injected with 6 mL of a 0.1 mg/mL solution of epinephrine for drug delivery. Coagulation for hemostasis using heater probe was successful. Estimated blood loss was minimal. Two non-bleeding superficial gastric ulcers with no stigmata of bleeding were found in the gastric antrum. The largest lesion was 5 mm in largest dimension. Biopsies were taken with a cold forceps for histology. Verification of patient identification for the specimen was done. Estimated blood loss was minimal. Biopsies were taken with a cold forceps for Helicobacter pylori testing. Verification of patient identification for the specimen was done. Estimated blood loss was minimal. Diffuse mild inflammation characterized by erosions and erythema was found in the duodenal bulb and in the first portion of the duodenum. Impression: - Normal esophagus. - Oozing gastric ulcers with pigmented material. Injected. Treated with a heater probe. - Non-bleeding gastric ulcers with no stigmata of bleeding. Biopsied. - Bile duodenitis. Recommendation: - Return patient to [facility] for ongoing care. - Advance diet as tolerated. - Continue present medications. - Await pathology results. Procedure Code(s): --- Professional --- 62521, 59, Esophagogastroduodenoscopy, flexible, transoral; with control of bleeding, any method 21511, Esophagogastroduodenoscopy, flexible, transoral; with biopsy, single or multiple 12550, 59,51, Esophagogastroduodenoscopy, flexible, transoral; with directed submucosal injection(s), any substance CPT copyright 2021 [employer]. All rights reserved. The codes documented in this report are preliminary and upon milling supervisor review may be revised to meet current compliance requirements. Mathew Orellana DO 04/02/2023 5:09:52 PM This report has been signed electronically. Number of Addenda: 0 Note Initiated On: 04/02/2023 4:44 PM
--- NOTE | 2023-04-02 20:01 | PN.HOSP_ITS ---
Reason for Visit Reason for Visit: Diagnoses Anemia, unspecified (03/31/23) Cellulitis, unspecified (03/31/23) Rheumatoid arthritis, unspecified (03/31/23) Weakness (03/31/23) Localized edema (03/31/23) Personal history of other venous thrombosis and embolism (03/31/23) Subjective Subjective Patient was seen and examined today, she underwent an EGD today which showed duodenitis and gastric ulcers. Gastroenterology advised to advance her diet as tolerated. Objective Data Objective Data Vital Signs: Vital Signs Temp Pulse Resp BP Pulse Ox O2 Del Method 97.3 F L 73 18 109/61 99 Room Air 04/02/23 18:06 04/02/23 18:06 04/02/23 18:06 04/02/23 18:06 04/02/23 18:06 04/02/23 18:06 Oxygen Delivery Method Room Air Weight: 56.1 kg Body Mass Index (BMI) 21.9 Intake & Output: Intake and Output for Last 24 Hours 03/31/23 04/01/23 04/02/23 23:59 23:59 23:59 Intake Total 550 / 550 1082 / 1082 713.5 / 713.5 Output Total 700 / 700 Balance 550 / 550 1082 / 1082 13.5 / 13.5 Medical Nutrition Assessment Dietitian: Malnutrition Criteria Met Start: 04/01/23 12:03 Freq: Status: Active Protocol: Document 04/01/23 12:03 (Rec: 04/01/23 12:03 [id number]) Nutrition Malnutrition Evidence of Malnutrition Exists Yes Malnutrition (severe): Acute Illness/Injury Evidenced By Suboptimal Energy Intake ( Severe),Weight Loss (Severe) Clinical Problem Acute Disease or Injury Related Malnutrition Etiology severe, acute malnutrition r/t recent COVID, hospitalizations, GI dysfunction Signs/Symptoms as evidenced by unintentional 4kg/7% wt loss x1 week, estimated PO intake meeting < 50% of estimated energy needs >1 week Status Active Problem Recommendation Dietitian Recommendations/Changes recommend advance diet as tolerated to transitional; ensure w/ medpass when diet advanced Lab / Micro Data 04/02/23 07:10 04/02/23 07:10 Labs: Laboratory Results - last 24 hr 04/01/23 20:22: Hgb 9.9 L, Hct 29.9 L 04/02/23 07:10: WBC 9.4, RBC 3.43 L, Hgb 9.8 L, Hct 29.0 L, MCV 84.5, MCH 28.6, MCHC 33.8, RDW Std Deviation 70.3 H, RDW Coeff of Catarino 23.1 H, Plt Count 40 L*, MPV 10.3, Immature Gran % (Auto) 0.900, Neut % (Auto) 86.6 H, Lymph % (Auto) 6.4 L, [place] % (Auto) 5.4, Eos % (Auto) 0.6, Baso % (Auto) 0.1, Absolute Neuts (auto) 8.2 H, Absolute Lymphs (auto) 0.60 L, Nucleated RBC % 0, Differential Comment COMMENT, Diff Path Review June, Platelet Estimate MKD DEC, Anisocytosis 1+, PT 15.8 H, INR 1.3, Sodium 134 L, Potassium 3.6, Chloride 102, Carbon Dioxide 27.0, Anion Gap 5, BUN 13, Creatinine 0.52 L, Estim Creat Clear Calc 50.26, Est GFR (MDRD) Af Amer 149, Est GFR (MDRD) Non-Af 123, BUN/Creatinine Ratio 25.1 H, Glucose 86, Calcium 7.2 L, Total Bilirubin 1.70 H, AST 20, ALT 35, Alkaline Phosphatase 84, Total Protein 4.9 L, Albumin 2.0 L, Globulin 2.9, Albumin/Globulin Ratio 0.7 L Radiography Diagnostic Testing: Radiology Impression Echocardiogram 03/31/23 21:33 Interpretation Summary The estimated ejection fraction is 70 %. Unable to assess diastolic dysfunction. The left atrium is severely enlarged. Severe aortic stenosis. Ordering Physician: Laine Veras Performed By: Maurilio Hernandez RCS Venous Doppler Study 04/01/23 06:43 Interpretation Summary Deep veins of the bilateral lower extremity are patent and compressible se gmentally. There is no evidence of bilateral lower extremity deep vein thrombosis. The bilateral great saphenous veins appear patent and compressible segmentally. Ordering Physician: Alisa Mathew Referring Physician: Deyanira Pak M.D. Performed By: Zhanna Kramer RVT Physical Exam Const alert and no apparent distress Constitutional Narrative: Patient appears frail and older than her stated age General Appearance: cooperative, well kempt and well developed Orientation / Consciousness: awake, oriented to person and oriented to place HEENT normocephalic and head/scalp atraumatic Mouth: dry mucous membranes Eyes PERRL, EOMs intact bilaterally and conjunctivae normal Neck supple, no JVD, thyroid normal and no carotid bruits General: trachea midline Resp normal respiratory effort, no retractions, no use of accessory muscles and clear to auscultation bilaterally Auscultation: Negative for rales, rhonchi or wheezes Cardio regular rate, regular rhythm, S1 normal heart sound, S2 normal heart sound, no murmurs, no rub and no gallops GI normal to inspection, nondistended, normoactive bowel sounds, soft to palpation, non-tender and non-distended Extremity no clubbing, cyanosis or edema Skin no rashes or lesions noted General Skin Exam: no breakdown Neuro oriented x3, CN's II-XII intact bilaterally, moves all extremities, no focal motor deficits and no sensory deficits noted Sensorium / Orientation: awake and alert Speech: speech normal Psych affect normal Assessment & Plan Assessment/Plan (1) Weakness: PLAN: Plan 1. Right lower extremity cellulitis-patient is currently on IV Levaquin #2 acute on chronic anemia requiring blood transfusion-etiology unclear, monitor H&H as necessary #3 gastric ulcers-continue PPI #4 duodenitis-continue PPI #5 acute debility-patient may need placement in a prison facility for short-term rehab services. #6 histoplasmosis-patient is currently on itraconazole Total clinical time spent by myself addressing the patient's medical issues, reviewing all of her data, and collaborating with patient's care team: 25 minutes Charges/Coding Visit Charges Inpatient E&M: 68730 Subs Hosp L1
[2023-04-02] MEDS: ITRACONAZOLE 100 MG CAPSULE 200 MG PO (21:32)
[2023-04-02] MEDS: levoFLOXacin IV 750 MG/150 ML BAG 100 MG IV (22:10)
[2023-04-03] VITALS (7 sets, daily range): BP systolic 99–114; BP diastolic 54–69; PULSE 74–112; RESP 16–18; TEMP 36.8–37.6; O2SAT 95–98; BMI 21.9
[2023-04-03] MEDS: Budesonide Respules 0.5 MG/2 ML AMPUL.NEB. INHALATION (07:17)
[2023-04-03] MEDS: Ipratropium/Albuterol Sulfate 3 ML AMPUL.NEB INHALATION ×2 (07:17→13:09)
[2023-04-03 07:29] LABS: Absolute Lymphocyte Count 0.41 X10^3/uL (0.83-4.51); Absolute Neutrophil Count 5.2 X10^3/uL (2.0-7.7); Basophil# 0.01 X10^3/uL; Basophil% 0.2 % (0-1); Eosinophil# 0.17 X10^3/uL; Eosinophils% 2.7 % (0-5); Hematocrit 28.4 % (37-47); Hemoglobin 9.4 g/dL (12.0-15.0); Lymphocyte # 0.41 X10^3/ul (0.83-4.51); Lymphocyte % 6.5 % (19-41); Mean Corp Hgb Conc 33.1 g/dL (32-36); Mean Corpuscular Hgb 28.1 pg (27.0-32.0); Mean Platelet Vol. 10.1 fl (6.2-12.0); Monocyte# 0.47 X10^3/uL; Monocyte% 7.5 % (0-10); NRBC Flagged by Analyzer 0 % (0-5); Neutrophil % 82.5 % (47-70); POSITIVE COUNT YES; POSITIVE DIFFERENTIAL YES; POSITIVE MORPHOLOGY YES; RBC Distribution Width CV 22.7 % (11.6-14.6); RBC Distribution Width SD 69.6 fl (35.1-43.9); Red Blood Count 3.34 M/mm3 (4.2-5.4); White Blood Count 6.3 K/mm3 (4.4-11.0)
[2023-04-03 07:53] LABS: Differential Indicated SCAN CRITERIA MET; Platelet Count 39 K/mm3 (150-450)
[2023-04-03 08:51] LABS: Anisocytosis 1+
[2023-04-03 08:52] LABS: Platelet Estimate MKD DEC (ADEQ)
[2023-04-03 08:55] LABS: International Normalized Ratio 1.3; Prothrombin Time (Protime)PT. 16.2 SECONDS (11.7-14.9)
[2023-04-03] MEDS: Pantoprazole Sodium 40 MG in 0.9% Normal Saline (100mL MB+) 100 ML 330 MG IV ×2 (09:17→19:50)
[2023-04-03] MEDS: Gabapentin 300 MG Capsule PO ×2 (09:17→19:50)
[2023-04-03] MEDS: Fluticasone 0.05% 1 SPRAY NASAL.SRY NASAL (09:17)
--- NOTE | 2023-04-03 10:30 | CASEMGMT ---
Addendum entered by Krissy Julien 04/03/23 14:55: SW went to notify patient, but she was sleeping. SW will check back with patient. Plan: d/c to [facility] TCU pending insurance approval. Krissy BARON Original Note: SW was informed by wound RN that patient would like to go to [facility] TCU. SW met with patient. Introduced self and role at [facility]. Patient confirmed she wants to go to TCU at discharge. SW let patient know SW will make the referral to confirm they can take her. Patient declined a list unless TCU cannot take her. SW made a referral to Michelle in TCU. Krissy BARON
--- NOTE | 2023-04-03 10:45 | CASEMGMT ---
PAULA POND chart review: Patient was admitted 03/26-03/27/23 for debility. See assessment from 03/27/23. Patient did well with therapy, no therapy recommended at discharge. Patient discharged on Lasix. Patient denied HHC at discharge and discharged to home with follow-up plans in place. Patient returned 03/31/23 for Edema and fall, requesting rehab at discharge. PAULA POND in to discuss needs and readmission. Patient states she was taking Lasix as prescribed. Reviewed progress with therapy and patient would like TCU at discharge, SW aware. CM will continue to follow this patient and plan for a safe discharge.
[2023-04-03] MEDS: ITRACONAZOLE 100 MG CAPSULE 200 MG PO ×2 (11:45→16:21)
[2023-04-03 14:17] LABS: Pathologist Review Reviewed
--- NOTE | 2023-04-03 14:41 | CHAPLAIN ---
Type of Pastoral Visit _x__ Initial Visit ___ Follow-up Visit ___ On-call Visit ___ General Patient Visit ___ Spiritual Assessment ___ Family Conference ___ Bereavement ___ Rapid Response ___ Code Blue ___ Other (describe below) Pastoral Care Referral From _x__ Patient ___ Family ___ Nurse ___ Physician ___ Nutrient Management Specialist ___ Hospital Sales Representative ___ Other (describe below) Sacrament/Intervention _x__ Active listening ___ Anointing ___ Anabaptist _x__ Bereavement ___ Communion _x__ Adia exploration ___ _x__ Life review _x__ Prayer ___ Reconciliation ___ Sacrament of Sick _x__ Supportive presence ___ Wedding ___ Other (describe below) Pastoral Comments this patient is welcoming and very talkative; 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
--- NOTE | 2023-04-03 14:51 | CASEMGMT ---
TCU is able to accept patient pending pre-cert. Plan: [facility] TCU pending insurance approval. Krissy BARON
--- NOTE | 2023-04-03 15:57 | CASEMGMT ---
SW notified patient that TCU can take her pending her insurance approval. SW encouraged patient to continue to participate in therapy. Plan: d/c to [facility] TCU pending insurance approval. Krissy BARON
--- NOTE | 2023-04-03 17:30 | PCM.PN.HOSP ---
Reason for Visit Reason for Visit: Diagnoses Anemia, unspecified (03/31/23) Cellulitis, unspecified (03/31/23) Rheumatoid arthritis, unspecified (03/31/23) Weakness (03/31/23) Localized edema (03/31/23) Personal history of other venous thrombosis and embolism (03/31/23) Subjective Subjective Patient was seen and examined today, I have elected to stop her antibiotics, I examined her lower extremities along with the wound care nurse today and it does not appear that she has an active cellulitis over her lower extremities. Patient's platelet count remains low, I contacted oncology to see the patient in consultation. Objective Data Objective Data Vital Signs: Vital Signs Temp Pulse Resp BP Pulse Ox O2 Del Method 98.3 F 96 16 99/54 L 98 Room Air 04/03/23 15:00 04/03/23 15:00 04/03/23 15:00 04/03/23 15:00 04/03/23 15:00 04/03/23 15:00 Oxygen Delivery Method Room Air Weight: 56.3 kg Body Mass Index (BMI) 21.9 Intake & Output: Intake and Output for Last 24 Hours 04/01/23 04/02/23 04/03/23 23:59 23:59 23:59 Intake Total 1082 / 1082 973.5 / 973.5 230 / 230 Output Total 1350 / 1350 Balance 1082 / 1082 -376.5 / -376.5 230 / 230 Medical Nutrition Assessment Dietitian: Malnutrition Criteria Met Start: 04/01/23 12:03 Freq: Status: Active Protocol: Document 04/01/23 12:03 (Rec: 04/01/23 12:03 [id number]) Nutrition Malnutrition Evidence of Malnutrition Exists Yes Malnutrition (severe): Acute Illness/Injury Evidenced By Suboptimal Energy Intake ( Severe),Weight Loss (Severe) Clinical Problem Acute Disease or Injury Related Malnutrition Etiology severe, acute malnutrition r/t recent COVID, hospitalizations, GI dysfunction Signs/Symptoms as evidenced by unintentional 4kg/7% wt loss x1 week, estimated PO intake meeting < 50% of estimated energy needs >1 week Status Active Problem Recommendation Dietitian Recommendations/Changes recommend advance diet as tolerated to transitional; ensure w/ medpass when diet advanced Lab / Micro Data 04/03/23 06:40 04/02/23 07:10 Labs: Laboratory Results - last 24 hr 04/02/23 07:10: Diff Path Review Reviewed 04/03/23 06:40: WBC 6.3, RBC 3.34 L, Hgb 9.4 L, Hct 28.4 L, MCV 85.0, MCH 28.1, MCHC 33.1, RDW Std Deviation 69.6 H, RDW Coeff of Catarino 22.7 H, Plt Count 39 L*, MPV 10.1, Immature Gran % (Auto) 0.600, Neut % (Auto) 82.5 H, Lymph % (Auto) 6.5 L, [place] % (Auto) 7.5, Eos % (Auto) 2.7, Baso % (Auto) 0.2, Absolute Neuts (auto) 5.2, Absolute Lymphs (auto) 0.41 L, Nucleated RBC % 0, Differential Comment COMMENT, Diff Path Review June, Platelet Estimate MKD DEC, Anisocytosis 1+, PT 16.2 H, INR 1.3 Physical Exam Const alert, oriented x3 and no apparent distress Constitutional Narrative: Patient appears frail and older than her stated age General Appearance: cooperative, well kempt and well developed Orientation / Consciousness: awake, oriented to person and oriented to place HEENT normocephalic, head/scalp atraumatic and moist oral mucous membranes Eyes PERRL, EOMs intact bilaterally and conjunctivae normal Neck supple, no JVD, thyroid normal and no carotid bruits General: trachea midline Resp normal respiratory effort and clear to auscultation bilaterally Auscultation: Negative for rales, rhonchi or wheezes Cardio regular rate, regular rhythm, S1 normal heart sound, S2 normal heart sound, no murmurs, no rub and no gallops GI normal to inspection, nondistended, normoactive bowel sounds, soft to palpation, non-tender and non-distended Extremity no clubbing, cyanosis or edema Skin Skin Narrative: Patient has some areas of skin breakdown over both lower legs, there is some serous drainage noted from a few small open areas Neuro oriented x3, CN's II-XII intact bilaterally, moves all extremities, no focal motor deficits and no sensory deficits noted Sensorium / Orientation: awake and alert Speech: speech normal Psych affect normal Assessment & Plan Assessment/Plan (1) Weakness: PLAN: Plan 1. Right lower extremity cellulitis-resolved at this time, patient's antibiotics will be discontinued #2 acute on chronic anemia requiring blood transfusion-etiology unclear, monitor H&H as necessary #3 gastric ulcers-continue PPI #4 duodenitis-continue PPI #5 acute debility-patient has agreed to go to TCU for inpatient rehab services, we will need pre-CERT from her insurance company for this. #6 histoplasmosis-patient is currently on itraconazole #7 thrombocytopenia-oncology will be seeing the patient in consultation Total clinical time spent by myself addressing the patient's medical issues, reviewing all of her data, and collaborating with patient's care team: 25 minutes Charges/Coding Visit Charges Inpatient E&M: 75361 Subs Hosp L1
--- NOTE | 2023-04-03 17:50 | EX.PCM.PN.GI ---
Subjective Subjective Patient is doing well without any complaints. She underwent an upper endoscopy yesterday. She denies any abdominal pain. She is tolerating a diet. Objective Data Objective Data Vital Signs: Vital Signs Temp Pulse Resp BP Pulse Ox O2 Del Method 98.3 F 96 16 99/54 L 98 Room Air 04/03/23 15:00 04/03/23 15:00 04/03/23 15:00 04/03/23 15:00 04/03/23 15:00 04/03/23 15:00 Oxygen Delivery Method Room Air Weight: 124 lb 1.924 oz Body Mass Index (BMI) 21.9 Intake & Output: Intake and Output for Last 24 Hours 04/01/23 04/02/23 04/03/23 23:59 23:59 23:59 Intake Total 1082 / 1082 973.5 / 973.5 230 / 230 Output Total 1350 / 1350 Balance 1082 / 1082 -376.5 / -376.5 230 / 230 Medical Nutrition Assessment Dietitian: Malnutrition Criteria Met Start: 04/01/23 12:03 Freq: Status: Active Protocol: Document 04/01/23 12:03 (Rec: 04/01/23 12:03 [id number]) Nutrition Malnutrition Evidence of Malnutrition Exists Yes Malnutrition (severe): Acute Illness/Injury Evidenced By Suboptimal Energy Intake ( Severe),Weight Loss (Severe) Clinical Problem Acute Disease or Injury Related Malnutrition Etiology severe, acute malnutrition r/t recent COVID, hospitalizations, GI dysfunction Signs/Symptoms as evidenced by unintentional 4kg/7% wt loss x1 week, estimated PO intake meeting < 50% of estimated energy needs >1 week Status Active Problem Recommendation Dietitian Recommendations/Changes recommend advance diet as tolerated to transitional; ensure w/ medpass when diet advanced Lab / Micro Data 04/03/23 06:40 04/02/23 07:10 Labs: Laboratory Results - last 24 hr 04/02/23 07:10: Diff Path Review Reviewed 04/03/23 06:40: WBC 6.3, RBC 3.34 L, Hgb 9.4 L, Hct 28.4 L, MCV 85.0, MCH 28.1, MCHC 33.1, RDW Std Deviation 69.6 H, RDW Coeff of Catarino 22.7 H, Plt Count 39 L*, MPV 10.1, Immature Gran % (Auto) 0.600, Neut % (Auto) 82.5 H, Lymph % (Auto) 6.5 L, [place] % (Auto) 7.5, Eos % (Auto) 2.7, Baso % (Auto) 0.2, Absolute Neuts (auto) 5.2, Absolute Lymphs (auto) 0.41 L, Nucleated RBC % 0, Differential Comment COMMENT, Diff Path Review May foll, Platelet Estimate MKD DEC, Anisocytosis 1+, PT 16.2 H, INR 1.3 Physical Exam Const alert, oriented x3 and no apparent distress Constitutional Narrative: Patient appears frail and older than her stated age General Appearance: cooperative, well kempt and well developed Orientation / Consciousness: awake, oriented to person and oriented to place HEENT normocephalic, head/scalp atraumatic and moist oral mucous membranes Eyes PERRL, EOMs intact bilaterally and conjunctivae normal Neck supple, no JVD, thyroid normal and no carotid bruits General: trachea midline Resp normal respiratory effort and clear to auscultation bilaterally Auscultation: Negative for rales, rhonchi or wheezes Cardio regular rate, regular rhythm, S1 normal heart sound, S2 normal heart sound, no murmurs, no rub and no gallops GI normal to inspection, nondistended, normoactive bowel sounds, soft to palpation, non-tender and non-distended Extremity no clubbing, cyanosis or edema Skin Skin Narrative: Patient has some areas of skin breakdown over both lower legs, there is some serous drainage noted from a few small open areas Neuro oriented x3, CN's II-XII intact bilaterally, moves all extremities, no focal motor deficits and no sensory deficits noted Sensorium / Orientation: awake and alert Speech: speech normal Psych affect normal Assessment & Plan Assessment/Plan (1) Cellulitis: PLAN: Plan The patient is a 77 y/o F w/ PMHx: GERD, Rheumatoid Arthritis, Hx VTE (DVT, PE), Recent diagnosis Histoplasmosis, recent 03/21/33 evaluation at [facility] with transfer to [facility] secondary to concerns for complex bowel obstruction treated conservative, concerns for colitis administered cipro/flagyl, disseminated histoplasmosis treated with itraconazole Acute Anemia on chronic, unclear etiology, questionable GI bleed: Admission hemoglobin 8.3, vacillated during prior admission ranging 7-8. She underwent an upper endoscopy yesterday. Findings: The examined esophagus was normal. Few oozing linear gastric ulcers with pigmented material were found in the gastric antrum and at the pylorus. The largest lesion was 9 mm in largest dimension. Area was successfully injected with 6 mL of a 0.1 mg/mL solution of epinephrine for drug delivery. Coagulation for hemostasis using heater probe was successful. Estimated blood loss was minimal. Two non-bleeding superficial gastric ulcers with no stigmata of bleeding were found in the gastric antrum. The largest lesion was 5 mm in largest dimension. Biopsies were taken with a cold forceps for histology. Verification of patient identification for the specimen was done. Estimated blood loss was minimal. Biopsies were taken with a cold forceps for Helicobacter pylori testing. Verification of patient identification for the specimen was done. Estimated blood loss was minimal. Diffuse mild inflammation characterized by erosions and erythema was found in the duodenal bulb and in the first portion of the duodenum. Impression: - Normal esophagus. - Oozing gastric ulcers with pigmented material. Injected. Treated with a heater probe. - Non-bleeding gastric ulcers with no stigmata of bleeding. Biopsied. - Bile duodenitis. Recommendation: - Return patient to [facility] for ongoing care. - Advance diet as tolerated. - Continue present medications. - Await pathology results. I would hold PPI therapy as it can be associated with thrombocytopenia. If she needs any acid suppression she can get quality assurance calibrator fate or H2 receptor pietro. Charges/Coding Visit Charges Inpatient E&M: 86922 [facility] Hosp L3
[2023-04-04] VITALS (7 sets, daily range): BP systolic 96–119; BP diastolic 64–98; PULSE 75–97; RESP 16–20; TEMP 36.6–37.3; O2SAT 96–98; BMI 22.0
[2023-04-04 07:25] LABS: Absolute Lymphocyte Count 0.58 X10^3/uL (0.83-4.51); Absolute Neutrophil Count 4.7 X10^3/uL (2.0-7.7); Basophil# 0.01 X10^3/uL; Basophil% 0.2 % (0-1); Eosinophils% 4.9 % (0-5); Hematocrit 29.8 % (37-47); Lymphocyte # 0.58 X10^3/ul (0.83-4.51); Lymphocyte % 9.4 % (19-41); Mean Corp Hgb Conc 33.6 g/dL (32-36); Mean Corpuscular Hgb 28.2 pg (27.0-32.0); Mean Corpuscular Volume 84.2 fL (81-99); Mean Platelet Vol. 10.5 fl (6.2-12.0); Monocyte# 0.51 X10^3/uL; Monocyte% 8.3 % (0-10); NRBC Flagged by Analyzer 0 % (0-5); Neutrophil # 4.71 X10^3/uL (2.7-7.7); Neutrophil % 76.5 % (47-70); POSITIVE COUNT YES; POSITIVE DIFFERENTIAL YES; POSITIVE MORPHOLOGY YES; RBC Distribution Width SD 69.2 fl (35.1-43.9); Red Blood Count 3.54 M/mm3 (4.2-5.4); White Blood Count 6.2 K/mm3 (4.4-11.0)
[2023-04-04 07:30] LABS: Differential Indicated SCAN CRITERIA MET; Platelet Count 40 K/mm3 (150-450)
[2023-04-04] MEDS: Ipratropium/Albuterol Sulfate 3 ML AMPUL.NEB INHALATION ×3 (07:38→19:03)
[2023-04-04] MEDS: Budesonide Respules 0.5 MG/2 ML AMPUL.NEB. INHALATION ×2 (07:38→19:03)
[2023-04-04 07:53] LABS: Anisocytosis 2+; Platelet Estimate MKD DEC (ADEQ)
[2023-04-04] MEDS: Gabapentin 300 MG Capsule PO ×2 (08:18→20:13)
[2023-04-04] MEDS: Fluticasone 0.05% 1 SPRAY NASAL.SRY NASAL (08:18)
[2023-04-04] MEDS: ITRACONAZOLE 100 MG CAPSULE 200 MG PO ×2 (08:18→16:51)
[2023-04-04] MEDS: Pantoprazole Sodium 40 MG in 0.9% Normal Saline (100mL MB+) 100 ML 330 MG IV ×2 (09:45→20:12)
--- NOTE | 2023-04-04 12:07 | CASEMGMT ---
Patient denied any concerns with her living situation. Patient was concerned originally because she is so weak. Patient denied any other concerns. Krissy BARON
[2023-04-04 12:50] LABS: Pathologist Review Reviewed
--- NOTE | 2023-04-04 14:40 | CASEMGMT ---
SUNNY received a call from patient's friend Milena. Milena expressed concern that patient should not be discharged home. Patient has been in and out of the hospital and she does not do well at home. SUNNY explained that patient asked SW about going to [facility] for rehab at discharge. SW explained once insurance approves patient she will go over to [facility]. Milena thanked SUNNY for the update and she was happy patient is going to go somewhere for rehab. Plan: d/c to [facility] pending insurance approval. Krissy BARON
--- NOTE | 2023-04-04 16:10 | ONC.CONSULT ---
Assessment & Plan Assessment/Plan (1) Thrombocytopenia: Status: Acute Code(s): D69.6 - Thrombocytopenia, unspecified Plan: Acute moderately severe onset is in March 2023 no active bleeding and no evidence for recent thrombosis no recent use of heparin. She has a remote history of venous thromboembolic disease and was on Coumadin until recent hospitalization at [facility] in early March 2023. Has had multiple hospitalizations at different institutions which fragments her care and adds to the complexity of her case. The cause for her acute thrombocytopenia is difficult to pinpoint but is most likely related to acute on chronic illness and multi antimicrobial use. There is no evidence to suggest microangiopathic hemolysis or heparin-induced thrombocytopenia. The primary bone marrow disease is very unlikely. All antimicrobials except for itraconazole has been stopped. 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 Her anemia is consistent with anemia of chronic disease and acute inflammation. There is no evidence for nutritional deficiencies. Recommendations from hematology: 1. Conservative watchful for the thrombocytopenia. All antimicrobials except for itraconazole have been discontinued.Drug-induced thrombocytopenia on average recovers in about 1 week dependent on drug metabolism and elimination. 2. Prophylactic platelet transfusion if platelet count is less than 10K, patient has active bleeding other than bruising or minor nose or gum bleed and prior to any invasive procedure. 3. Continue to hold systemic anticoagulation until platelet count is above 50 K, use nonpharmacologic venous thromboembolism prophylaxis.. 4. Patient's is an established at [facility] and therefore I advised continued follow-up there. Impression and plan discussed with the patient and her friend. Impression and plan discussed with hospitalist. Alcides Abel MD [employer], [facility] Divisions of Medical Oncology & Hematology Department of Internal Medicine [place] [id number] This note was generated using a voice recognition system software. Although it was reviewed by the author prior to finalization, it may still contain incorrect words, spelling, and punctuation that were not noted when reviewing prior to saving. If a clinically significant typo or inaccurately typed phrase is noted, please notify the author. (2) Anemia: Status: Chronic Code(s): D64.9 - Anemia, unspecified HPI Consult Data Date of Service:: 04/05/23 PCP / Referring Provider: Dr. Deyanira Pak MD Attending: Dr. Michael Chan DO Chief Complaint Chief Complaint: Thrombocytopenia History of Present Illness History of Present Illness: 77-year-old female being consulted for an acute thrombocytopenia (see lab section for international representative platelet counts) with no active bleeding or thrombosis. The patient has multiple chronic medical problems and multiple hospitalizations between [facility] and [facility] and is presenting with failure to thrive at home. 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 She has a past history of venous thromboembolic disease and was on Coumadin until recently. She has chronic lower extremities edema and ulcers for which she has received multiple courses of antibiotics. In early March 2023 she was seen at [facility] and transferred to [facility] with suspected bowel perforation and was treated conservatively with antimicrobials. On the current admission she was receiving Cipro and Flagyl in addition to itraconazole s that was started around February 2023. In her last admission to [facility] in March 2023 Coumadin was held, because not clear and patient as far as she can tell did not receive any heparin injections . Advanced Directives Power of Complex Care Nurse Practitioner: Yes Living Will: Yes [facility] Medical History (Updated 04/05/23 @ 10:[address] Alcides Abel MD) Colitis COPD (chronic obstructive pulmonary disease) COVID-19 DVT (deep venous thrombosis) Former smoker Histoplasmosis Pulmonary embolism Rheumatoid arthritis Thrombocytopenia Home Medications adalimumab 40 mg/0.4 mL subcutaneous pen kit (Humira(CF) Pen) 40 mg subcut Q14D 03/19/23 [History Last Taken Unknown] albuterol sulfate 90 mcg/actuation aerosol inhaler 2 puff inhalation Q4H PRN shortness of breath or wheezing 03/19/23 [History Last Taken Unknown] budesonide-formoterol HFA 160 mcg-4.5 mcg/actuation aerosol inhaler (Symbicort) 2 puff inhalation Q12H 03/19/23 [History Last Taken Unknown] fluticasone propionate 50 mcg/actuation nasal spray,suspension 1 spray intranasal DAILY allergies 03/19/23 [History Last Taken Unknown] gabapentin 300 mg capsule 300 mg PO Q12H pain 03/19/23 [History Last Taken Unknown] irbesartan 150 mg-hydrochlorothiazide 12.5 mg tablet 1 tab PO DAILY 03/19/23 [History Last Taken Unknown] multivitamin (Daily Multi-Vitamin tablet) 1 tab PO DAILY supplement 03/19/23 [History Last Taken Unknown] naproxen 500 mg tablet 500 mg PO Q12H 03/19/23 [History Last Taken Unknown] pantoprazole 40 mg tablet,delayed release 40 mg PO DAILY 03/19/23 [History Last Taken Unknown] potassium chloride 20 mEq tablet,extended release(part/cryst) (Klor-Con M) 20 meq PO BID 03/19/23 [History Last Taken Unknown] tiotropium bromide 2.5 mcg/actuation mist for inhalation (Spiriva Respimat) 2 puff inhalation Q24H 03/19/23 [History Last Taken Unknown] vitamins A,C,S-qemn-muehti 2,148 mcg-113 mg-45 mg-17.4 mg tablet (PreserVision AREDS) 2 tab PO BID 03/19/23 [History Last Taken Unknown] warfarin 5 mg tablet 5 mg PO .COMPLEX 03/19/23 [History Last Taken Unknown] cholecalciferol (vitamin D3) 25 mcg (1,000 unit) capsule 25 mcg PO DAILY 03/26/23 [History Last Taken Unknown] ciprofloxacin HCl 500 mg tablet 500 mg PO Q12H 03/26/23 [History Last Taken Unknown] dexamethasone 6 mg tablet 6 mg PO DAILY 03/26/23 [History Last Taken Unknown] itraconazole 10 mg/mL oral solution 100 mg PO Q8H unknown 03/26/23 [History Last Taken Unknown] loperamide 2 mg capsule (Anti-Diarrheal (loperamide)) 4 mg PO TID diarrhea 03/26/23 [History Last Taken Unknown] metronidazole 500 mg tablet 500 mg PO TID 03/26/23 [History Last Taken Unknown] vitamin A-vitamin C-vit E-min tablet (Ocutabs tablet) 2 tab PO DAILY 03/26/23 [History Last Taken Unknown] furosemide 20 mg tablet (Lasix) 20 mg PO DAILY 14 days #14 tabs 03/28/23 [Rx Last Taken Unknown] Allergy/AdvReac Type Severity Reaction Status Date / Time Penicillins Allergy Severe Anaphylaxis Verified 03/28/23 16:32 Surgical History History of embolic filter insertion Hx of foot surgery Social History Smoking Status: Former smoker ROS Constitutional Constitutional: Reports fatigue and other Details: Her weight fluctuates with the amount of edema she is having ; Denies fever(s) ENT HEENT: Reports other Details: No nose or gum bleed Cardiovascular Cardiovascular: Reports dyspnea and edema; Denies chest pain Respiratory/Chest Respiratory/Chest: Denies hemoptysis Gastrointestinal Gastrointestinal: Denies hematochezia or melena Genitourinary Genitourinary: Denies hematuria Musculoskeletal Musculoskeletal: Reports joint pain and limited range of motion Integumentary Integumentary: Reports unusual bruising and other Details: Edema and oozing lower extremity Neurologic Neurologic: Denies abnormal speech or focal weakness Hematologic/Lymphatic Hematologic/Lymphatic: Reports easy bruising; Denies easy bleeding or lymphadenopathy Physical Exam Narrative ECOG 3 chronically ill looking but in no acute distress Const alert and oriented x3 General Appearance: ill appearing Positive for chronically, frail and grossly edematous HEENT normocephalic Eyes no scleral icterus Neck no lymphadenopathy and no JVD Resp clear to auscultation bilaterally Cardio regular rate and regular rhythm GI soft to palpation and non-tender Extremity General Extremity: edema bilateral lower extremity Details: severe Skin General Skin Exam: ecchymosis Neuro CN's II-XII intact bilaterally, moves all extremities and no focal motor deficits Psych mental status grossly normal Vital Signs Temperature 98.2 F 04/04/23 14:20 Temperature Source Oral 04/04/23 14:20 Pulse Rate 93 04/04/23 14:20 Pulse Strength Normal (2+) 04/04/23 08:55 Respiratory Rate 16 04/04/23 14:20 Respiratory Effort Normal 04/04/23 08:55 Respiratory Depth Normal 04/04/23 08:55 Respiratory Pattern Normal 04/04/23 08:55 Blood Pressure 119/98 H 04/04/23 14:20 Blood Pressure Mean 105 04/04/23 14:20 Blood Pressure Source Monitor 04/04/23 14:20 Blood Pressure Position Supine 04/04/23 14:20 Blood Pressure Location Left Arm 04/04/23 14:20 Baseline BP 109/61 04/02/23 17:20 Pulse Ox 96 04/04/23 14:20 Oxygen Delivery Method Room Air 04/04/23 14:20 Laboratory Results - last 24 hr 04/03/23 06:40: Diff Path Review Reviewed 04/04/23 06:42: WBC 6.2, RBC 3.54 L, Hgb 10.0 L, Hct 29.8 L, MCV 84.2, MCH 28.2, MCHC 33.6, RDW Std Deviation 69.2 H, RDW Coeff of Catarino 23.0 H, Plt Count 40 L*, MPV 10.5, Immature Gran % (Auto) 0.700, Neut % (Auto) 76.5 H, Lymph % (Auto) 9.4 L, [place] % (Auto) 8.3, Eos % (Auto) 4.9, Baso % (Auto) 0.2, Absolute Neuts (auto) 4.7, Absolute Lymphs (auto) 0.58 L, Nucleated RBC % 0, Diff Path Review June, Platelet Estimate MKD DEC, Anisocytosis 2+ Laboratory Tests 03/19/23 03/19/23 03/19/23 11:25 11:25 11:25 WBC 6.4 Hgb Plt Count 145 L Absolute Neuts (auto) 4.4 03/26/23 03/26/23 03/26/23 13:15 13:15 13:15 WBC 16.9 H Hgb Plt Count 169 Absolute Neuts (auto) 13.6 H 03/27/23 03/27/23 03/27/23 06:47 06:47 06:47 WBC 12.4 H Hgb 7.9 L Plt Count 134 L Absolute Neuts (auto) 03/27/23 03/28/23 03/28/23 06:47 16:37 16:37 WBC 14.1 H Hgb 9.6 L Plt Count Absolute Neuts (auto) 9.5 H 03/28/23 03/28/23 03/31/23 16:37 16:37 18:12 WBC Hgb 8.3 L Plt Count 170 Absolute Neuts (auto) 11.3 H 03/31/23 03/31/23 03/31/23 18:12 18:12 18:12 WBC 19.4 H Hgb Plt Count 95 L Absolute Neuts (auto) 17.6 H 04/01/23 04/01/23 04/01/23 05:14 05:14 05:14 WBC 11.7 H Hgb 6.5 L Plt Count 61 L Absolute Neuts (auto) 10.3 H 04/01/23 04/01/23 04/02/23 16:37 20:22 07:10 WBC Hgb 9.1 L 9.9 L Plt Count 40 L* Absolute Neuts (auto) 04/02/23 04/02/23 04/03/23 07:10 07:10 06:40 WBC 9.4 Hgb 9.8 L Plt Count 39 L* Absolute Neuts (auto) 8.2 H 04/03/23 04/03/23 04/03/23 06:40 06:40 06:40 WBC 6.3 Hgb 9.4 L Plt Count Absolute Neuts (auto) 5.2 04/04/23 04/04/23 04/04/23 06:42 06:42 06:42 WBC Hgb 10.0 L Plt Count 40 L* Absolute Neuts (auto) 4.7 04/04/23 06:42 WBC 6.2 Hgb Plt Count Absolute Neuts (auto) Laboratory Tests 03/19/23 03/19/23 03/19/23 11:25 11:25 11:25 WBC 6.4 Hgb Plt Count 145 L Absolute Neuts (auto) 4.4 03/26/23 03/26/23 03/26/23 13:15 13:15 13:15 WBC 16.9 H Hgb Plt Count 169 Absolute Neuts (auto) 13.6 H 03/27/23 03/27/23 03/27/23 06:47 06:47 06:47 WBC 12.4 H Hgb 7.9 L Plt Count 134 L Absolute Neuts (auto) 03/27/23 03/28/23 03/28/23 06:47 16:37 16:37 WBC 14.1 H Hgb 9.6 L Plt Count Absolute Neuts (auto) 9.5 H 03/28/23 03/28/23 03/31/23 16:37 16:37 18:12 WBC Hgb 8.3 L Plt Count 170 Absolute Neuts (auto) 11.3 H 03/31/23 03/31/23 03/31/23 18:12 18:12 18:12 WBC 19.4 H Hgb Plt Count 95 L Absolute Neuts (auto) 17.6 H 04/01/23 04/01/23 04/01/23 05:14 05:14 05:14 WBC 11.7 H Hgb 6.5 L Plt Count 61 L Absolute Neuts (auto) 10.3 H 04/01/23 04/01/23 04/02/23 16:37 20:22 07:10 WBC Hgb 9.1 L 9.9 L Plt Count 40 L* Absolute Neuts (auto) 04/02/23 04/02/23 04/03/23 07:10 07:10 06:40 WBC 9.4 Hgb 9.8 L Plt Count 39 L* Absolute Neuts (auto) 8.2 H 04/03/23 04/03/23 04/03/23 06:40 06:40 06:40 WBC 6.3 Hgb 9.4 L Plt Count Absolute Neuts (auto) 5.2 04/04/23 04/04/23 04/04/23 06:42 06:42 06:42 WBC Hgb 10.0 L Plt Count 40 L* Absolute Neuts (auto) 4.7 04/04/23 06:42 WBC 6.2 Hgb Plt Count Absolute Neuts (auto) I personally reviewed patient's peripheral blood smear,Her myeloid series is unremarkable, red blood cells are normocytic normochromic no schistocytes and platelets are decreased in number. Diagnostic Data Tibia/Fibula X-Ray 03/31/23 17:49 IMPRESSION: No acute radiographic abnormalities. Electronically Signed: Franko Galarza MD at 19:30 EST , Chest X-Ray 03/31/23 18:32 IMPRESSION: No change from prior study. Electronically Signed: Franko Galarza MD at 19:29 EST , Echocardiogram 03/31/23 21:33 Interpretation Summary The estimated ejection fraction is 70 %. Unable to assess diastolic dysfunction. The left atrium is severely enlarged. Severe aortic stenosis. Ordering Physician: Laine Veras Performed By: Maurilio Hernandez RCS Ankle X-Ray 03/31/23 22:10 IMPRESSION: Soft tissue swelling without obvious fracture. Electronically Signed: Franko Galarza MD at 23:54 EST , Venous Doppler Study 04/01/23 06:43 Interpretation Summary Deep veins of the bilateral lower extremity are patent and compressible segmentally. There is no evidence of bilateral lower extremity deep vein thrombosis. The bilateral great saphenous veins appear patent and compressible segmentally. Ordering Physician: Alisa Mathew Referring Physician: Deyanira Pak M.D. Performed By: Zhanna Kramer RVT
[2023-04-04 16:47] LABS: Absolute Neutrophil Count 3.9 X10^3/uL (2.0-7.7); Basophil# 0.01 X10^3/uL; Basophil% 0.2 % (0-1); Eosinophil# 0.22 X10^3/uL; Eosinophils% 4.2 % (0-5); Hematocrit 29.5 % (37-47); Hemoglobin 9.7 g/dL (12.0-15.0); Lymphocyte % 11.4 % (19-41); Mean Corp Hgb Conc 32.9 g/dL (32-36); Mean Corpuscular Hgb 28.4 pg (27.0-32.0); Mean Corpuscular Volume 86.3 fL (81-99); Mean Platelet Vol. 10.2 fl (6.2-12.0); Monocyte# 0.52 X10^3/uL; Monocyte% 9.8 % (0-10); NRBC Flagged by Analyzer 0 % (0-5); Neutrophil % 73.8 % (47-70); POSITIVE COUNT YES; POSITIVE DIFFERENTIAL YES; POSITIVE MORPHOLOGY YES; RBC Distribution Width CV 23.1 % (11.6-14.6); RBC Distribution Width SD 70.8 fl (35.1-43.9); Red Blood Count 3.42 M/mm3 (4.2-5.4); White Blood Count 5.3 K/mm3 (4.4-11.0)
[2023-04-04 16:50] LABS: Differential Indicated SCAN CRITERIA MET
[2023-04-04 16:52] LABS: Platelet Count 41 K/mm3 (150-450)
[2023-04-04 17:14] LABS: Anisocytosis 2+; Differential Comment SCANNED
--- NOTE | 2023-04-04 18:07 | PCM.PN.HOSP ---
Reason for Visit Reason for Visit: Diagnoses Anemia, unspecified (03/31/23) Cellulitis, unspecified (03/31/23) Rheumatoid arthritis, unspecified (03/31/23) Weakness (03/31/23) Localized edema (03/31/23) Personal history of other venous thrombosis and embolism (03/31/23) Subjective Subjective Patient was seen and examined today, she was seen by hematology today, they recommended monitoring the patient's platelet count and resuming Coumadin only if the platelet count was above 50,000. Etiology of the thrombocytopenia is unknown at this time. Objective Data Objective Data Vital Signs: Vital Signs Temp Pulse Resp BP Pulse Ox O2 Del Method 98.2 F 93 16 119/98 H 96 Room Air 04/04/23 14:20 04/04/23 14:20 04/04/23 14:20 04/04/23 14:20 04/04/23 14:20 04/04/23 17:52 Oxygen Delivery Method Room Air Weight: 56.472 kg Body Mass Index (BMI) 22.0 Intake & Output: Intake and Output for Last 24 Hours 04/02/23 04/03/23 04/04/23 23:59 23:59 23:59 Intake Total 973.5 / 973.5 560 / 560 570 / 570 Output Total 1350 / 1350 200 / 200 200 / 200 Balance -376.5 / -376.5 360 / 360 370 / 370 Medical Nutrition Assessment Dietitian: Malnutrition Criteria Met Start: 04/01/23 12:03 Freq: Status: Active Protocol: Document 04/04/23 14:00 AG (Rec: 04/04/23 14:02 AG Desktop) Nutrition Malnutrition Evidence of Malnutrition Exists Yes Malnutrition (severe): Acute Illness/Injury Evidenced By Suboptimal Energy Intake ( Severe),Weight Loss (Severe) Clinical Problem Acute Disease or Injury Related Malnutrition Etiology severe, acute malnutrition r/t recent COVID, hospitalizations, GI dysfunction Signs/Symptoms as evidenced by unintentional 4kg/7% wt loss x1 week, estimated PO intake meeting < 50% of estimated energy needs >1 week Status Active Problem Recommendation Dietitian Recommendations/Changes continue regular diet as tolerated; will defer ONS at this time as it appears PO intake is improving. Lab / Micro Data 04/04/23 16:19 04/02/23 07:10 Labs: Laboratory Results - last 24 hr 04/03/23 06:40: Diff Path Review Reviewed 04/04/23 06:42: WBC 6.2, RBC 3.54 L, Hgb 10.0 L, Hct 29.8 L, MCV 84.2, MCH 28.2, MCHC 33.6, RDW Std Deviation 69.2 H, RDW Coeff of Catarino 23.0 H, Plt Count 40 L*, MPV 10.5, Immature Gran % (Auto) 0.700, Neut % (Auto) 76.5 H, Lymph % (Auto) 9.4 L, [place] % (Auto) 8.3, Eos % (Auto) 4.9, Baso % (Auto) 0.2, Absolute Neuts (auto) 4.7, Absolute Lymphs (auto) 0.58 L, Nucleated RBC % 0, Diff Path Review May foll, Platelet Estimate MKD DEC, Anisocytosis 2+ 04/04/23 16:19: WBC 5.3, RBC 3.42 L, Hgb 9.7 L, Hct 29.5 L, MCV 86.3, MCH 28.4, MCHC 32.9, RDW Std Deviation 70.8 H, RDW Coeff of Catarino 23.1 H, Plt Count 41 L*, MPV 10.2, Immature Gran % (Auto) 0.600, Neut % (Auto) 73.8 H, Lymph % (Auto) 11.4 L, [place] % (Auto) 9.8, Eos % (Auto) 4.2, Baso % (Auto) 0.2, Absolute Neuts (auto) 3.9, Absolute Lymphs (auto) 0.60 L, Nucleated RBC % 0, Differential Comment SCANNED, Diff Path Review May foll, Anisocytosis 2+ Physical Exam Narrative alert, oriented x3 and no apparent distress Constitutional Narrative: Patient appears frail and older than her stated age General Appearance: cooperative, well kempt and well developed Orientation / Consciousness: awake, oriented to person and oriented to place HEENT normocephalic, head/scalp atraumatic and moist oral mucous membranes Eyes PERRL, EOMs intact bilaterally and conjunctivae normal Neck supple, no JVD, thyroid normal and no carotid bruits General: trachea midline Resp normal respiratory effort and clear to auscultation bilaterally Auscultation: Negative for rales, rhonchi or wheezes Cardio regular rate, regular rhythm, S1 normal heart sound, S2 normal heart sound, no murmurs, no rub and no gallops GI normal to inspection, nondistended, normoactive bowel sounds, soft to palpation, non-tender and non-distended Extremity no clubbing, cyanosis or edema Skin Skin Narrative: Patient has some areas of skin breakdown over both lower legs, there is some serous drainage noted from a few small open areas Neuro oriented x3, CN's II-XII intact bilaterally, moves all extremities, no focal motor deficits and no sensory deficits noted Sensorium / Orientation: awake and alert Speech: speech normal Psych affect normal Assessment & Plan Assessment/Plan (1) Weakness: PLAN: Plan 1. Right lower extremity cellulitis-resolved at this time, patient completed a course of antibiotics #2 acute on chronic anemia requiring blood transfusion-etiology unclear, monitor H&H as necessary #3 gastric ulcers-continue PPI #4 duodenitis-continue PPI #5 acute debility-patient has agreed to go to TCU for inpatient rehab services, we will need pre-CERT from her insurance company for this. #6 histoplasmosis-patient is currently on itraconazole #7 thrombocytopenia-etiology unclear, patient's platelet count will be monitored #8 severe acute protein and caloric malnutrition due to recent COVID, hospitalizations, GI dysfunction as evidenced by unintentional 7% weight loss x 1 week, estimating p.o. intake meeting less than 50% of estimated energy needs for over a week-diet will be advanced as tolerated to his transitional, Ensure with med Pass when diet is advanced, nutritional services is participating in her care Total clinical time spent by myself addressing the patient's medical issues, reviewing all of her data, and collaborating with patient's care team: 25 minutes Charges/Coding Visit Charges Inpatient E&M: 46957 Subs Hosp L1
[2023-04-04] MEDS: 0.9% Saline Lock 10 ML Syringe IV (20:16)
[2023-04-05 01:48] VITALS: BMI 21.5
[2023-04-05 02:10] VITALS: BP 101/66; PULSE 88; RESP 16; TEMP 36.6; O2SAT 96
[2023-04-05 06:58] VITALS: PULSE 96; RESP 20; O2SAT 96
[2023-04-05] MEDS: Ipratropium/Albuterol Sulfate 3 ML AMPUL.NEB INHALATION (06:58)
[2023-04-05] MEDS: Budesonide Respules 0.5 MG/2 ML AMPUL.NEB. INHALATION (06:58)
[2023-04-05 07:53] LABS: Absolute Lymphocyte Count 0.61 X10^3/uL (0.83-4.51); Absolute Neutrophil Count 4.4 X10^3/uL (2.0-7.7); Basophil# 0.01 X10^3/uL; Basophil% 0.2 % (0-1); Eosinophil# 0.31 X10^3/uL; Eosinophils% 5.3 % (0-5); Hematocrit 28.8 % (37-47); Hemoglobin 9.6 g/dL (12.0-15.0); Lymphocyte # 0.61 X10^3/ul (0.83-4.51); Lymphocyte % 10.5 % (19-41); Mean Corp Hgb Conc 33.3 g/dL (32-36); Mean Corpuscular Hgb 28.3 pg (27.0-32.0); Mean Platelet Vol. 9.9 fl (6.2-12.0); Monocyte# 0.51 X10^3/uL; Monocyte% 8.8 % (0-10); NRBC Flagged by Analyzer 0 % (0-5); Neutrophil # 4.35 X10^3/uL (2.7-7.7); Neutrophil % 74.7 % (47-70); POSITIVE COUNT YES; POSITIVE MORPHOLOGY YES; Platelet Count 32 K/mm3 (150-450); RBC Distribution Width CV 22.8 % (11.6-14.6); RBC Distribution Width SD 69.7 fl (35.1-43.9); Red Blood Count 3.39 M/mm3 (4.2-5.4); White Blood Count 5.8 K/mm3 (4.4-11.0)
[2023-04-05 07:57] LABS: Differential Indicated SCAN CRITERIA MET
[2023-04-05 08:30] LABS: Anisocytosis 2+
[2023-04-05 08:31] LABS: Platelet Estimate MKD DEC (ADEQ)
[2023-04-05 08:40] VITALS: BP 117/65; PULSE 98; RESP 16; TEMP 36.7; O2SAT 96
[2023-04-05] MEDS: ITRACONAZOLE 100 MG CAPSULE 200 MG PO (08:49)
[2023-04-05] MEDS: Fluticasone 0.05% 1 SPRAY NASAL.SRY NASAL (08:49)
[2023-04-05] MEDS: Acetaminophen 325 MG Tablet 650 MG PO (08:54)
[2023-04-05] MEDS: Gabapentin 300 MG Capsule PO (08:55)
--- NOTE | 2023-04-05 10:43 | WOUNDNOTE ---
wound photo: left foot
--- NOTE | 2023-04-05 10:44 | WOUNDNOTE ---
wound photo: right lower leg/foot
--- NOTE | 2023-04-05 10:45 | WOUNDNOTE ---
wound photo: right lateral lower leg/foot
--- NOTE | 2023-04-05 10:45 | WOUNDNOTE ---
wound photo: right lateral heel
--- NOTE | 2023-04-05 11:04 | CASEMGMT ---
Social Work SW spoke w/pt, and friends Milena Gerardo and Padmini Chang who are in the room. They confirm they are pt's are Healthcare POAs. SW asked them to bring in the LW and POA as able. They state understanding. SU Looney
--- NOTE | 2023-04-05 11:20 | PCM.TXEXTCAR ---
Diet Diet Order/Speech Therapy: 04/03/23 02:08 Diet: Regular - General Is pt able to select menu?: Yes Routine Orders/Code Status Routine Lab Work: CBC (Daily x 5 days starting 04/06/2023, notify attending if platelet count falls below 20,000) Code Status: Full Code Wound(s) Right leg: Wound Type: scattered blisters Dressing Change: Adaptic left foot: Wound Type: open blisters Dressing Change: Adaptic right foot: Wound Type: scattered blisters Dressing Change: Adaptic right lateral heel: Wound Type: Pressure Injury Dressing Change: dry well padded dressing Therapies Weight Bearing: Full weight bearing Physical Therapy: Eval and Treat Occupational Therapy: Eval and Treat Problem/Diagnosis (1) Thrombocytopenia: Status: Acute Code(s): D69.6 - Thrombocytopenia, unspecified (2) Anemia: Status: Chronic Code(s): D64.9 - Anemia, unspecified (3) Rheumatoid arthritis: Status: Acute Code(s): M06.9 - Rheumatoid arthritis, unspecified Plan 1. Right lower extremity cellulitis-resolved at this time, patient completed a course of antibiotics #2 acute on chronic anemia requiring blood transfusion-etiology appears to be upper GI hemorrhage from actively bleeding gastric ulcer #3 gastric ulcers-continue PPI #4 duodenitis-continue PPI #5 acute debility #6 histoplasmosis-patient is currently on itraconazole, this appears to be a long-term medication #7 thrombocytopenia-etiology unclear, patient's platelet count will be monitored, hematology recommends not resuming the patient's Coumadin until her platelet count is above 50,000, patient will need a platelet transfusion unless her platelet count falls to 15,000 or below #8 severe acute protein and caloric malnutrition due to recent COVID, hospitalizations, GI dysfunction as evidenced by unintentional 7% weight loss x 1 week, estimating p.o. intake meeting less than 50% of estimated energy needs for over a week-diet will be advanced as tolerated to his transitional, Ensure with med Pass when diet is advanced, nutritional services is participating in her care Total clinical time spent by myself addressing the patient's medical issues, reviewing all of her data, and collaborating with patient's care team: 25 minutes Allergies/Procedures Done in Hospital Allergies Penicillins Allergy (Severe, Verified 03/28/23 16:32) Anaphylaxis Procedures: None Type of Care/Length of Stay Estimated LOS: Convalescent Care Less Than 30 days Type of Care Needed: Skilled Rehab Potential: Good Prognosis: Good Additional Orders/Day of Discharge H&P will serve as current which was dated: 03/31/23 Day of Discharge: 04/05/23 Dietary and Speech Recommendations Dietitian Recommendations/Changes: continue regular diet as tolerated; will defer ONS at this time as it appears PO intake is improving. Discharge Plan Admission Admit Date/Time: 03/31/23 20:14 Primary Reason for Your Visit: Acute upper GI bleed with anemia, debility, cellulitis of the legs Attending Provider: Michael Chan Primary Care Provider: Deyanira Pak Consulting Providers: Laine Veras; Alisa Mathew; Naman Meredith; Lg Rios; Rachael Weiss; Stevan Rodríguez; Jing Reyes; Efrain Quevedo; Frederick Dick; Killian Rush; Adarsh Prakash; Alcides Abel; London Sandra; Chris Royal; Leobardo Calloway; Jorgito Agarwal; Rosalina Herrera CURRICULUM AND INSTRUCTION SPECIALIST Discharge Orders/Prescriptions Prescriptions: New acetaminophen 325 mg Tablet 650 mg PO Q6H PRN PRN (Reason: Pain 1-10 Or Fever >100.7) Qty: 0 0RF ipratropium-albuterol 0.5 mg-3 mg(2.5 mg base)/3 mL Solution For Nebulization 3 ml inhalation Q6HWA.RT Qty: 0 0RF albuterol sulfate 2.5 mg /3 mL (0.083 %) Solution For Nebulization 2.5 mg inhalation Q2H PRN PRN (Reason: SOB/Wheezing) Qty: 0 0RF gabapentin 300 mg Capsule 300 mg PO Q12 Qty: 0 0RF budesonide 0.5 mg/2 mL Suspension For Nebulization 0.5 mg inhalation Q12H.RT Qty: 0 0RF fluticasone propionate 50 mcg/actuation Laura,Suspension 1 spray NASAL DAILY Qty: 0 0RF itraconazole 100 mg Capsule 200 mg PO BIDCM Qty: 0 0RF oxycodone 5 mg Tablet 5 mg PO Q4H PRN PRN (Reason: Pain Score 4-10) 2 Days Qty: 6 0RF sennosides-docusate sodium [Stool Softener-Stimulant Laxat] 8.6-50 mg Tablet 2 tab PO BID PRN PRN (Reason: Constipation) Qty: 0 0RF pantoprazole 40 mg Tablet,Delayed Release (Dr/Ec) 40 mg PO BID Qty: 0 0RF Continued albuterol sulfate 90 mcg/actuation HFA aerosol inhaler 2 puff INHALATION Q4H PRN (Reason: shortness of breath or wheezing) PreserVision AREDS 2,148 mcg-113 mg-45 mg-17.4mg tablet 2 tab PO BID Rx Instructions: administer with AM and PM meals multivitamin [Daily Multi-Vitamin] Tablet 1 tab PO DAILY cholecalciferol (vitamin D3) 25 mcg (1,000 unit) capsule 25 mcg PO DAILY Ocutabs Tablet 2 tab PO DAILY Discontinued gabapentin 300 mg capsule 300 mg PO Q12H Humira(CF) Pen 40 mg/0.4 mL pen injector kit 40 mg SUBCUT Q14D Hold Instructions: Resume on 04/24/23. HOLD UNTIL ALLOWED TO RESTART GIVEN RECENT DISSEMINATED HISTOPLASMOSIS AND COVID. irbesartan-hydrochlorothiazide 150-12.5 mg tablet 1 tab PO DAILY Hold Instructions: Resume on 04/24/23. May resume if appropriate and repeat BP assessments and renal function normalized upon PCP re-evaluation at follow-up. naproxen 500 mg tablet 500 mg PO Q12H pantoprazole 40 mg tablet,delayed release (DR/EC) 40 mg PO DAILY warfarin 5 mg tablet 5 mg PO .COMPLEX Rx Instructions: 5 mg orally Sunday, Sunday; 7.5 mg orally Sunday, , Sunday, Sunday, Sunday potassium chloride [Klor-Con M20] 20 mEq tablet,ER particles/crystals 20 meq PO BID furosemide [Lasix] 20 mg tablet 20 mg PO DAILY 14 Days Qty: 14 0RF ciprofloxacin HCl 500 mg tablet 500 mg PO Q12H dexamethasone 6 mg tablet 6 mg PO DAILY loperamide [Anti-Diarrheal (loperamide)] 2 mg capsule 4 mg PO TID metronidazole 500 mg tablet 500 mg PO TID No Action fluticasone propionate 50 mcg/actuation spray,suspension 1 spray INTRANASAL DAILY budesonide-formoterol [Symbicort] 160-4.5 mcg/actuation HFA aerosol inhaler 2 puff INHALATION Q12H Spiriva Respimat 2.5 mcg/actuation mist 2 puff INHALATION Q24H itraconazole 10 mg/mL solution 100 mg PO Q8H Rx Instructions: administer on an empty stomach Referrals / Follow Up: Deyanira Pak MD [Primary Care Provider] - Disposition Disposition (needs filled in before D/C Order can be placed): [facility]
[2023-04-05] MEDS: Pantoprazole Sodium 40 MG Tablet PO (11:48)
[2023-04-05 12:55] LABS: Pathologist Review Reviewed
[2023-04-05 12:58] LABS: Pathologist Review Reviewed
--- NOTE | 2023-04-05 12:58 | NURSING ---
Report called to Janneth in TCU
[2023-04-05 13:00] LABS: Pathologist Review Reviewed
--- NOTE | 2023-04-09 13:16 | PCM.DC.SUM ---
Providers Date of Admission: 03/31/23 Date of Discharge: 04/05/23 Primary Care Physician: Dr. Deyanira Pak MD Consultations 03/31/23 21:33 Consult: Onc/Wound/exterminator Routine Comment: 04/03/23 12:21 Consult: Oncology/Hematology Routine Consulting Provider: PAULINO Hem/Onc Chito Reason for Consult: low platelets EMERGENT Consult: No MD Notified: Yes Date Notified: 04/03/23 Time Notified: 12:22 Method of Notification: Verbal 04/04/23 16:02 Consult: Oncology/Hematology Routine Consulting Provider: [facility]) Reason for Consult: low platelets EMERGENT Consult: No Notified: Yes Date Notified: 04/04/23 Time Notified: 16:02 Method of Notification: per Dr. Chan Reason For Visit: RLE CELLULITIS AND EXTREMITY SWELLING Diagnosis Discharge Diagnosis (1) Thrombocytopenia: Status: Acute Code(s): D69.6 - Thrombocytopenia, unspecified (2) Anemia: Status: Chronic Code(s): D64.9 - Anemia, unspecified (3) Rheumatoid arthritis: Status: Acute Code(s): M06.9 - Rheumatoid arthritis, unspecified Plan 1. Right lower extremity cellulitis-resolved at this time, patient completed a course of antibiotics #2 acute on chronic anemia requiring blood transfusion-etiology appears to be upper GI hemorrhage from actively bleeding gastric ulcer #3 gastric ulcers-continue PPI #4 duodenitis-continue PPI #5 acute debility #6 histoplasmosis-patient is currently on itraconazole, this appears to be a long-term medication #7 thrombocytopenia-etiology unclear, patient's platelet count will be monitored, hematology recommends not resuming the patient's Coumadin until her platelet count is above 50,000, patient will need a platelet transfusion unless her platelet count falls to 15,000 or below #8 severe acute protein and caloric malnutrition due to recent COVID, hospitalizations, GI dysfunction as evidenced by unintentional 7% weight loss x 1 week, estimating p.o. intake meeting less than 50% of estimated energy needs for over a week-diet will be advanced as tolerated to his transitional, Ensure with med Pass when diet is advanced, nutritional services is participating in her care Total clinical time spent by myself addressing the patient's medical issues, reviewing all of her data, and collaborating with patient's care team: 25 minutes Medications at Discharge Home Medications albuterol sulfate 90 mcg/actuation aerosol inhaler 2 puff inhalation Q4H PRN shortness of breath or wheezing 03/19/23 budesonide-formoterol HFA 160 mcg-4.5 mcg/actuation aerosol inhaler (Symbicort) 2 puff inhalation Q12H 03/19/23 fluticasone propionate 50 mcg/actuation nasal spray,suspension 1 spray intranasal DAILY allergies 03/19/23 multivitamin (Daily Multi-Vitamin tablet) 1 tab PO DAILY supplement 03/19/23 tiotropium bromide 2.5 mcg/actuation mist for inhalation (Spiriva Respimat) 2 puff inhalation Q24H 03/19/23 vitamins A,C,E-lngc-zdhsws 2,148 mcg-113 mg-45 mg-17.4 mg tablet (PreserVision AREDS) 2 tab PO BID eye health 03/19/23 cholecalciferol (vitamin D3) 25 mcg (1,000 unit) capsule 25 mcg PO DAILY health maintenance 03/26/23 itraconazole 10 mg/mL oral solution 100 mg PO Q8H unknown 03/26/23 vitamin A-vitamin C-vit E-min tablet (Ocutabs tablet) 2 tab PO DAILY eye health 03/26/23 acetaminophen 325 mg tablet 650 mg (2 x 325 mg) PO Q6H PRN PRN Pain 1-10 Or Fever >100.7 #0 tabs 04/05/23 albuterol sulfate 2.5 mg/3 mL (0.083 %) solution for nebulization 2.5 mg (3 mL) inhalation Q2H PRN PRN SOB/Wheezing #0 mL 04/05/23 budesonide 0.5 mg/2 mL suspension for nebulization 0.5 mg (2 mL) inhalation Q12H.RT breathing #0 mL 04/05/23 fluticasone propionate 50 mcg/actuation nasal spray,suspension 1 spray NASAL DAILY #0 grams 04/05/23 gabapentin 300 mg capsule 300 mg PO Q12 nerve pain #0 caps 04/05/23 ipratropium 0.5 mg-albuterol 3 mg (2.5 mg base)/3 mL nebulization soln 3 ml inhalation Q6HWA.RT breathing #0 mL 04/05/23 itraconazole 100 mg capsule 200 mg (2 x 100 mg) PO BIDCM histoplasmosis #0 caps 04/05/23 oxycodone 5 mg tablet 5 mg PO Q4H PRN PRN Pain Score 4-10 2 days #6 tabs 04/05/23 pantoprazole 40 mg tablet,delayed release 40 mg PO BID GERD #0 tabs 04/05/23 sennosides 8.6 mg-docusate sodium 50 mg tablet (Stool Softener-Stimulant Laxative) 2 tab PO BID PRN PRN Constipation #0 tabs 04/05/23 Hospital Course Operations None Procedures EGD Summary of Care Provided Minutes Spent on Discharge: 31 Hospital Course: This 76-year-old white female was seen in the emergency room at [facility] due to worsening swelling of her lower extremities with right leg redness. Patient had recently been in the hospital here and was released home after hospital stay earlier in March. Patient had a hard time taking care of herself at home since then, patient fell and could not get up. Patient complains of worsening right leg pain, lab revealed an elevated white blood cell count at 19.4, hemoglobin was 8.3, potassium was 3.2. Patient was admitted to PCU for right lower extremity cellulitis, she was placed on IV antibiotics and she was seen by PT and OT. Patient was transfused 2 units of packed red blood cells due to anemia, she was seen in consultation by gastroenterology who performed an EGD which showed evidence of duodenitis and gastric ulcers. Patient consented to go to TCU for inpatient rehab services due to debility. On 04/05/2023, patient was seen and examined: On examination she appeared in good health and spirits, she does not appear to be in any distress. Vital signs as documented. Skin warm and dry and without overt rashes. Neck without JVD, thyroid appears normal, trachea is midline, neck is supple. Lungs clear, normal air movement was noted. Heart exam notable for regular rhythm, normal sounds and absence of murmurs, rubs or gallops. Abdomen unremarkable and without evidence of organomegaly, masses, or abdominal aortic enlargement, bowel sounds are present in all 4 quadrants, no abdominal tenderness was noted. Extremities nonedematous, no cyanosis was noted, no clubbing was noted. Neuro: Cranial nerves II through XII are grossly intact, no focal motor deficits were noted, sensation to light touch and pinprick is intact, motor exam 5/5 throughout. Psych: Patient is alert and oriented x3, she does not appear anxious or depressed, she does not appear agitated. Patient was transferred to TCU in stable condition on 04/05/2023 Weight / BMI Weight Weight: 55.2 kg Body Mass Index (BMI) 21.5 ABG / Lab / Microbiology Data 04/05/23 07:44 04/02/23 07:10 Meaningful Use Info Meaningful Use Diagnoses (Choose all that apply): None applicable Discharge Plan Admission Admit Date/Time: 03/31/23 20:14 Primary Reason for Your Visit: Acute upper GI bleed with anemia, debility, cellulitis of the legs Attending Provider: Michael Chan Primary Care Provider: Deyanira Pak Consulting Providers: Laine Veras; Alisa Mathew; Naman Meredith; Lg Rios; Rachael Weiss; Stevan Rodríguez; Jing Reyes; Efrain Quevedo; Frederick Dick; Killian Rush; Adarsh Prakash; Alcides Abel; London Sandra; Chris Royal; Leobardo Calloway; Jorgito Agarwal; Rosalina Herrera C 13 CATAPULT OPERATOR Instructions Additional Instructions / Restrictions: Maintain SCDs until patient therapeutic on Coumadin when it is able to be restarted Discharge Orders/Prescriptions Prescriptions: New acetaminophen 325 mg Tablet 650 mg PO Q6H PRN PRN (Reason: Pain 1-10 Or Fever >100.7) Qty: 0 0RF ipratropium-albuterol 0.5 mg-3 mg(2.5 mg base)/3 mL Solution For Nebulization 3 ml inhalation Q6HWA.RT Qty: 0 0RF albuterol sulfate 2.5 mg /3 mL (0.083 %) Solution For Nebulization 2.5 mg inhalation Q2H PRN PRN (Reason: SOB/Wheezing) Qty: 0 0RF gabapentin 300 mg Capsule 300 mg PO Q12 Qty: 0 0RF budesonide 0.5 mg/2 mL Suspension For Nebulization 0.5 mg inhalation Q12H.RT Qty: 0 0RF fluticasone propionate 50 mcg/actuation [place],Suspension 1 spray NASAL DAILY Qty: 0 0RF itraconazole 100 mg Capsule 200 mg PO BIDCM Qty: 0 0RF oxycodone 5 mg Tablet 5 mg PO Q4H PRN PRN (Reason: Pain Score 4-10) 2 Days Qty: 6 0RF sennosides-docusate sodium [Stool Softener-Stimulant Laxat] 8.6-50 mg Tablet 2 tab PO BID PRN PRN (Reason: Constipation) Qty: 0 0RF pantoprazole 40 mg Tablet,Delayed Release (Dr/Ec) 40 mg PO BID Qty: 0 0RF Continued albuterol sulfate 90 mcg/actuation HFA aerosol inhaler 2 puff INHALATION Q4H PRN (Reason: shortness of breath or wheezing) PreserVision AREDS 2,148 mcg-113 mg-45 mg-17.4mg tablet 2 tab PO BID Rx Instructions: administer with AM and PM meals multivitamin [Daily Multi-Vitamin] Tablet 1 tab PO DAILY cholecalciferol (vitamin D3) 25 mcg (1,000 unit) capsule 25 mcg PO DAILY Ocutabs Tablet 2 tab PO DAILY Discontinued gabapentin 300 mg capsule 300 mg PO Q12H Humira(CF) Pen 40 mg/0.4 mL pen injector kit 40 mg SUBCUT Q14D Hold Instructions: Resume on 04/24/23. HOLD UNTIL ALLOWED TO RESTART GIVEN RECENT DISSEMINATED HISTOPLASMOSIS AND COVID. irbesartan-hydrochlorothiazide 150-12.5 mg tablet 1 tab PO DAILY Hold Instructions: Resume on 04/24/23. May resume if appropriate and repeat BP assessments and renal function normalized upon PCP re-evaluation at follow-up. naproxen 500 mg tablet 500 mg PO Q12H pantoprazole 40 mg tablet,delayed release (DR/EC) 40 mg PO DAILY warfarin 5 mg tablet 5 mg PO .COMPLEX Rx Instructions: 5 mg orally Sunday, Sunday; 7.5 mg orally Sunday, , Sunday, Sunday, Sunday potassium chloride [Klor-Con M20] 20 mEq tablet,ER particles/crystals 20 meq PO BID furosemide [Lasix] 20 mg tablet 20 mg PO DAILY 14 Days Qty: 14 0RF ciprofloxacin HCl 500 mg tablet 500 mg PO Q12H dexamethasone 6 mg tablet 6 mg PO DAILY loperamide [Anti-Diarrheal (loperamide)] 2 mg capsule 4 mg PO TID metronidazole 500 mg tablet 500 mg PO TID No Action fluticasone propionate 50 mcg/actuation spray,suspension 1 spray INTRANASAL DAILY budesonide-formoterol [Symbicort] 160-4.5 mcg/actuation HFA aerosol inhaler 2 puff INHALATION Q12H Spiriva Respimat 2.5 mcg/actuation mist 2 puff INHALATION Q24H itraconazole 10 mg/mL solution 100 mg PO Q8H Rx Instructions: administer on an empty stomach Referrals / Follow Up: Deyanira Pak MD [Primary Care Provider] - Disposition Disposition (needs filled in before D/C Order can be placed): [facility] Facility Charges/Coding Visit Charges Inpatient E&M: 08084 Disch Hosp >30min
== END 2023-04-05 13:15 | disposition skilled nursing facility (03) | DRG 377 ==
LOC: ED 19:57 → PCU 20:58
PROVIDERS: Family Medicine; Internal Medicine Gastroenterology; Nurse Practitioner; Admitting Provider Internal Medicine; Emergency Provider Student in an Organized Health Care Education/Training Program; PCP Internal Medicine; Visit Provider Internal Medicine
PROC: 0DJ08ZZ Inspection of Upper Intestinal Tract, Via Natural or Artificial Opening Endoscopic (ICD-10-PCS; CPT 43235; principal; 2023-04-02 12:25)
DX: K25.4 Chronic or unspecified gastric ulcer with hemorrhage (principal); E43 Unspecified severe protein-calorie malnutrition; L03.115 Cellulitis of right lower limb; D62 Acute posthemorrhagic anemia; B39.9 Histoplasmosis, unspecified; D69.6 Thrombocytopenia, unspecified; D63.8 Anemia in other chronic diseases classified elsewhere; J44.9 Chronic obstructive pulmonary disease, unspecified; M06.9 Rheumatoid arthritis, unspecified; I10 Essential (primary) hypertension; I35.0 Nonrheumatic aortic (valve) stenosis; K21.9 Gastro-esophageal reflux disease without esophagitis; K52.9 Noninfective gastroenteritis and colitis, unspecified; E87.6 Hypokalemia; K29.80 Duodenitis without bleeding; W18.39XA Other fall on same level, initial encounter; M25.571 Pain in right ankle and joints of right foot; R62.7 Adult failure to thrive; Z86.718 Personal history of other venous thrombosis and embolism; Z87.891 Personal history of nicotine dependence; Z79.01 Long term (current) use of 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; R53.1 Weakness; R60.0 Localized edema; Z86.711 Personal history of pulmonary embolism; Z79.899 Other long term (current) drug therapy; Z79.51 Long term (current) use of inhaled steroids; Y93.01 Activity, walking, marching and hiking; Y92.009 Unspecified place in unspecified non-institutional (private) residence as the place of occurrence of the external cause; Z86.16 Personal history of COVID-19; Z68.22 Body mass index [BMI] 22.0-22.9, adult
CPT/HCPCS: 36415; 71045; 73590; 73610; 80048; 80053; 82550; 82728; 83540; 83550; 83605; 83735; 83880; 84484; 85014; 85018; 85025; 85610; 85652; 86140; 86850; 86900; 86901; 86920; 86921; 86922; 88305; 88342; 93005; 93306; 93970; 94640; 97162; 97166; 97530; 97535; 97802; 97803; 99283; 99284; J7030; J7040; J7120; P9016; Q9957; A4216; C8929

== ENCOUNTER 2023-04-05 13:33 | Inpatient (IN) | payer MEDICARE, SELFPAY ==
[2023-04-05 13:42] VITALS: PULSE 76; RESP 18; O2SAT 96; BMI 22.6
[2023-04-05 13:44] VITALS: BP 137/77; PULSE 92; RESP 16; TEMP 36.8; O2SAT 97
[2023-04-05] MEDS: ITRACONAZOLE 100 MG CAPSULE 200 MG PO (16:56)
[2023-04-05] MEDS: Multivitamin (Healthy Eyes) Capsule 2 CAP PO (16:56)
[2023-04-05 19:41] VITALS: PULSE 85; RESP 18; O2SAT 98
[2023-04-05] MEDS: Budesonide Respules 0.5 MG/2 ML AMPUL.NEB. INHALATION (19:41)
[2023-04-05] MEDS: Ipratropium/Albuterol Sulfate 3 ML AMPUL.NEB INHALATION (19:41)
--- NOTE | 2023-04-05 19:56 | HP.PCM_ITS ---
HPI - General General Date of Admission: 04/05/23 Date of Service: 04/05/23 Chief Complaint: Here for rehabilitation. HPI Narrative 03/31/2023 ALENA BUSTAMANTE, is a 77 Female who presents to [facility] ED with edema. FTT, bilateral lower extremity edema, right lower extremity redness. Unable to care for self at home, fell, could not get up. On floor for hours. Worsening right leg pain. WBC 19.4, Hemoglobin 8.3, INR 1.3, K 3.2, BNP okay, CK okay. Chest X-ray negative, X-ray right tibia/fibula negative. Clindamycin IV for right lower extremity cellulitis. 03/31/2023 Admit to [facility]. Levaquin, Doppler right lower extremity for cellulitis right lower extremity. PT/OT Debility. 03/31/2023 Echo EF 70%. LA severely dilated. Severe aortic stenosis. 04/01/2023 Bilateral lower extremity swelling improved. Hemoglobin 6.5, transfuse 2 units PRBC. Lovenox, coumadin for DVT/PE. DANIELLA wrap bilateral lower extremity edema. 04/02/2023 Dr. Orellana performed EGD oozing gastric ulcers injected, non-bleeding gastric ulcers biopsied, bile duodenitis. 04/02/2023 Levaquin IV right lower extremity cellulitis. Monitor H&H for GI bleed. 04/03/2023 Discontinue antibiotics for right lower extremity cellulitis. Pre-CERT for TCU. 04/04/2023 Dr. Abel recommended platelet transfusion if < 10,000. Hold anticoagulation until platelet > 50,000. 04/04/2023 Monitor platelets. 04/05/2023 Admit to TCU with debility, here for rehabiliation, strengthening, p rior to discharge home alone. [facility] Medical History (Updated 04/05/23 @ 20:[address] Edinson Irvin MD) Colitis COPD (chronic obstructive pulmonary disease) COVID-19 DVT (deep venous thrombosis) Former smoker Histoplasmosis Pulmonary embolism Rheumatoid arthritis Thrombocytopenia Home Medications albuterol sulfate 90 mcg/actuation aerosol inhaler 2 puff inhalation Q4H PRN shortness of breath or wheezing 03/19/23 [History Last Taken Unknown] budesonide-formoterol HFA 160 mcg-4.5 mcg/actuation aerosol inhaler (Symbicort) 2 puff inhalation Q12H 03/19/23 [History Last Taken Unknown] fluticasone propionate 50 mcg/actuation nasal spray,suspension 1 spray intranasal DAILY allergies 03/19/23 [History Last Taken 04/05/23 08:50] multivitamin (Daily Multi-Vitamin tablet) 1 tab PO DAILY supplement 03/19/23 [History Last Taken Unknown] tiotropium bromide 2.5 mcg/actuation mist for inhalation (Spiriva Respimat) 2 puff inhalation Q24H 03/19/23 [History Last Taken Unknown] vitamins A,C,V-qblu-xemmco 2,148 mcg-113 mg-45 mg-17.4 mg tablet (PreserVision AREDS) 2 tab PO BID eye health 03/19/23 [History Last Taken Unknown] cholecalciferol (vitamin D3) 25 mcg (1,000 unit) capsule 25 mcg PO DAILY health maintenance 03/26/23 [History Last Taken Unknown] itraconazole 10 mg/mL oral solution 100 mg PO Q8H unknown 03/26/23 [History Last Taken Unknown] vitamin A-vitamin C-vit E-min tablet (Ocutabs tablet) 2 tab PO DAILY eye health 03/26/23 [History Last Taken Unknown] acetaminophen 325 mg tablet 650 mg (2 x 325 mg) PO Q6H PRN PRN Pain 1-10 Or Fever >100.7 #0 tabs 04/05/23 [Rx Last Taken 04/05/23 08:55] albuterol sulfate 2.5 mg/3 mL (0.083 %) solution for nebulization 2.5 mg (3 mL) inhalation Q2H PRN PRN SOB/Wheezing #0 mL 04/05/23 [Rx Last Taken Unknown] budesonide 0.5 mg/2 mL suspension for nebulization 0.5 mg (2 mL) inhalation Q12H.RT breathing #0 mL 04/05/23 [Rx Last Taken 04/05/23 07:00] fluticasone propionate 50 mcg/actuation nasal spray,suspension 1 spray NASAL DAILY #0 grams 04/05/23 [Rx Last Taken Unknown] gabapentin 300 mg capsule 300 mg PO Q12 nerve pain #0 caps 04/05/23 [Rx Last Taken 04/05/23 09:00] ipratropium 0.5 mg-albuterol 3 mg (2.5 mg base)/3 mL nebulization soln 3 ml inhalation Q6HWA.RT breathing #0 mL 04/05/23 [Rx Last Taken 04/05/23 07:00] itraconazole 100 mg capsule 200 mg (2 x 100 mg) PO BIDCM histoplasmosis #0 caps 04/05/23 [Rx Last Taken 04/05/23 09:00] oxycodone 5 mg tablet 5 mg PO Q4H PRN PRN Pain Score 4-10 2 days #6 tabs 04/05/23 [Rx Last Taken 04/01/23 21:00] pantoprazole 40 mg tablet,delayed release 40 mg PO BID GERD #0 tabs 04/05/23 [Rx Last Taken 04/05/23 11:45] sennosides 8.6 mg-docusate sodium 50 mg tablet (Stool Softener-Stimulant Laxative) 2 tab PO BID PRN PRN Constipation #0 tabs 04/05/23 [Rx Last Taken Unknown] Allergy/AdvReac Type Severity Reaction Status Date / Time Penicillins Allergy Severe Anaphylaxis Verified 03/28/23 16:32 Surgical History History of embolic filter insertion Hx of foot surgery Social History (Updated 04/05/23 @ 20:[address] Edinson Irvin MD) household members: none Smoking Status: Former smoker alcohol intake: never substance use type: does not use ROS Constitutional Constitutional: Denies chills, fever(s) or weight gain ENT HEENT: Denies headache(s), nasal congestion or nasal discharge Cardiovascular Cardiovascular: Denies chest pain or palpitations Respiratory/Chest Respiratory/Chest: Denies cough, excessive phlegm production or shortness of breath with exertion Gastrointestinal Gastrointestinal: Denies abdominal pain, nausea or vomiting Genitourinary Genitourinary: Denies dysuria Musculoskeletal Musculoskeletal: Denies joint pain or joint swelling Integumentary Integumentary: Denies rash or wounds Neurologic Neurologic: Denies focal weakness, numbness or tingling Psychiatric Psychiatric: Denies anxiety, auditory hallucinations, depression, homicidal ideation or suicidal ideation Vital Signs Vital Signs Vital Signs: 04/05/23 13:44 04/05/23 13:42 Temperature 98.2 F Temperature Source Temporal Pulse Rate 92 76 Pulse Rhythm Regular Pulse Strength Normal (2+) Respiratory Rate 16 18 Respiratory Effort Normal Respiratory Depth Normal Respiratory Pattern Normal Blood Pressure 137/77 H Blood Pressure Mean 97 Blood Pressure Source Monitor Blood Pressure Position Sitting Blood Pressure Location Right Arm Pulse Ox 97 96 Oxygen Delivery Method Room Air Room Air Weight Weight: 57.878 kg Body Mass Index (BMI) 22.6 Physical Exam Const alert General Appearance: cooperative HEENT normocephalic Eyes PERRL and EOMs intact bilaterally Neck supple, no JVD and no carotid bruits Resp normal respiratory effort, normal air movement and clear to auscultation bilaterally Cardio regular rate and regular rhythm GI normal to inspection, nondistended, normoactive bowel sounds, non-tender and n on-distended Extremity normal capillary refill Extremity Narrative: Bilateral lower extremity DANIELLA wrap. General Extremity: Negative for edema Skin no rashes or lesions noted General Skin Exam: no breakdown Psych affect normal Appearance: appropriate Assessment & Plan Assessment/Plan (1) Debility: (2) Cellulitis of right lower extremity: (3) Failure to thrive: (4) Acute anemia: (5) Gastric ulcer: (6) Duodenitis: (7) Thrombocytopenia: (8) Edema: (9) COPD (chronic obstructive pulmonary disease): (10) Histoplasmosis: (11) History of blood clots: (12) Rheumatoid arthritis: PLAN: Plan 77 year old female with below past medical history hospitalized for right lower extremity cellulitis, failure to thrive, complicated by acute anemia 2/2 gastric ulcers, duodenitis, thrombocytopenia, admitted to TCU with debility, here for rehabilitation, strengthening, prior to discharge home alone. * Debility - PT/OT. * Pain - Tylenol 1000mg q6 prn pain (1-3), Oxycodone 5mg q4 prn pain (4-10). * Bowel - senna/colace 1 tablet bid, Magnesium citrate 300ml daily prn. * Adult immunization - Administer pneumonia vaccine, covid vaccine, flu vaccine as appropriate. * DVT prophylaxis - Hold, thrombocytopenia. * COPD - Budesonide 0.5mg q12, Duoneb 3ml q6wa, Albuterol 2.5mg q2 prn. * Vitamin D deficiency - D3 25mcg daily. * Allergic rhinitis - Flonase 1 spray nasal daily. * Neuropathic pain - Gabapentin 300mg q12h. * Histoplasmosis - Itraconazole 200mg bidcm. * Skin irritation - Calmoseptine topical bid. * Macular degeneration - Healthy Eyes 2 caps bidcm. * Nutrition - MVI 1 daily. * Gastric ulcer/duodenitis - Pantoprazole 40mg bid. * History of blood clots - restart coumadin when platelets > 50,000.
[2023-04-05] MEDS: Menthol/Lanolin/Calamine/Znox 113 GM Tube 1 APPLIC TOPICAL (21:41)
[2023-04-05] MEDS: Gabapentin 300 MG Capsule PO (21:41)
[2023-04-05] MEDS: Senna/Docusate Sodium 1 Tablet PO (21:41)
[2023-04-05] MEDS: Pantoprazole Sodium 40 MG Tablet PO (21:41)
[2023-04-06 06:07] LABS: Absolute Lymphocyte Count 0.64 X10^3/uL (0.83-4.51); Absolute Neutrophil Count 3.5 X10^3/uL (2.0-7.7); Basophil# 0.02 X10^3/uL; Basophil% 0.4 % (0-1); Eosinophil# 0.35 X10^3/uL; Eosinophils% 7.1 % (0-5); Hematocrit 27.1 % (37-47); Hemoglobin 8.9 g/dL (12.0-15.0); Lymphocyte # 0.64 X10^3/ul (0.83-4.51); Mean Corp Hgb Conc 32.8 g/dL (32-36); Mean Corpuscular Hgb 28.2 pg (27.0-32.0); Mean Corpuscular Volume 85.8 fL (81-99); Mean Platelet Vol. 10.2 fl (6.2-12.0); Monocyte# 0.41 X10^3/uL; Monocyte% 8.3 % (0-10); NRBC Flagged by Analyzer 0 % (0-5); Neutrophil # 3.47 X10^3/uL (2.7-7.7); Neutrophil % 70.6 % (47-70); POSITIVE COUNT YES; POSITIVE MORPHOLOGY YES; Platelet Count 32 K/mm3 (150-450); RBC Distribution Width CV 22.3 % (11.6-14.6); RBC Distribution Width SD 69.7 fl (35.1-43.9); Red Blood Count 3.16 M/mm3 (4.2-5.4); White Blood Count 4.9 K/mm3 (4.4-11.0)
[2023-04-06 06:20] LABS: Differential Indicated SCAN CRITERIA MET
[2023-04-06 06:31] LABS: Anion Gap 4 (5-15); BUN 21 mg/dL (7-18); BUN/Creat Ratio 36.5 RATIO (10-20); Calcium,Total 7.6 mg/dL (8.5-10.1); Chloride 103 mmol/L (98-107); Creatinine, Serum 0.58 mg/dL (0.55-1.02); EST Glomerular Filtration Rate 109 mL/min (>60); Est Glom Filt Rate - Afr Amer 131 mL/min (>60); Estimated Creatinine Clearance 50.26 ml/min; Glucose 87 mg/dL (74-106); Potassium 3.1 mmol/L (3.5-5.1); Sodium Level 135 mmol/L (136-145)
[2023-04-06 06:45] LABS: Anisocytosis 2+; Differential Comment SCANNED; Platelet Estimate MKD DEC (ADEQ)
[2023-04-06 08:25] VITALS: PULSE 80; RESP 18; O2SAT 97
[2023-04-06] MEDS: Budesonide Respules 0.5 MG/2 ML AMPUL.NEB. INHALATION ×2 (08:25→19:04)
[2023-04-06] MEDS: Ipratropium/Albuterol Sulfate 3 ML AMPUL.NEB INHALATION ×3 (08:25→19:04)
[2023-04-06] MEDS: ITRACONAZOLE 100 MG CAPSULE 200 MG PO ×2 (08:48→18:06)
[2023-04-06] MEDS: Multivitamin (Healthy Eyes) Capsule 2 CAP PO ×2 (08:48→18:06)
[2023-04-06] MEDS: Multivitamins,Therapeutic Tablet 1 TABLET PO (08:49)
[2023-04-06] MEDS: Pantoprazole Sodium 40 MG Tablet PO ×2 (08:49→23:29)
[2023-04-06] MEDS: Cholecalciferol (VIT D3) 25 MCG TABLET (1,000 UNITS) PO (08:49)
[2023-04-06] MEDS: Senna/Docusate Sodium 1 Tablet PO (08:49)
[2023-04-06] MEDS: Fluticasone 0.05% 1 SPRAY NASAL.SRY NASAL (08:50)
[2023-04-06] MEDS: Gabapentin 300 MG Capsule PO ×2 (08:52→23:28)
[2023-04-06] MEDS: Potassium Chloride Oral Tablet 20 MEQ 60 MEQ PO (08:52)
[2023-04-06] MEDS: Menthol/Lanolin/Calamine/Znox 113 GM Tube 1 APPLIC TOPICAL ×2 (08:55→23:30)
[2023-04-06 10:00] VITALS: BP 110/58; PULSE 97; PULSE 98; RESP 16; RESP 18; O2SAT 97; O2SAT 98
[2023-04-06 10:44] LABS: Bacteria 0 SEEN /hpf (None Seen); Mucous, Urine 0 SEEN /hpf (<or=2+); Red Blood Cells-Urine 0 SEEN /hpf (0-5); White Blood Cells 0 SEEN /hpf (0-5)
[2023-04-06 10:49] LABS: Color, Urine Yellow (Yellow); Glucose, Dipstick Normal (Normal); Ketone-Dipstick Negative (Negative); Leukocyte Esterase-Dipstick Negative /ul (Negative); Nitrite-Dipstick Negative (Negative); Occult Blood-Urine 10 /ul (Negative); Protein-Dipstick 15 mg/dl (Negative); Specific Gravity, Urine 1.015 (1.002-1.030); Urine Bilirubin Dipstick Negative (Negative); Urine Clarity Clear (Clear); Urine Urobilinogen Normal (Normal)
[2023-04-06 11:02] LABS: Squamous Epithelial Cells - UA 0-5 SEEN /hpf (5-10)
--- NOTE | 2023-04-06 11:18 | NURSING ---
rehabilitation program coordinator Note; Activity Asset: Juliana Hubbard is independent in her choice of daily activities. 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 She will read her bible and bible study book, her stripper opaquer will visit along w/friends from the sikh and our breaker boss. When not in therapy or resting she will also work on her Quotations Book, watch tv and read the newspaper. staff will remind her of weekly activities and respect her right to say no.
[2023-04-06 12:18] LABS: Pathologist Review Reviewed
[2023-04-06] MEDS: Tuberculin,Purif.prot.deriv. 50 TU/ML Vial 0.100000000000000006 ML ID (12:41)
[2023-04-06 14:35] VITALS: PULSE 82; RESP 18
--- NOTE | 2023-04-06 14:38 | PCM.PN.DRR ---
Documented by User: Amparo Marina 04/06/23 15:02 TCU RX Drug Regimen Review Subjective/Objective Subjective/Objective: Subjective: TCU Admission. 77 YOF presented to the ER with edema. Hospitalized for right lower extremity cellulitis, failure to thrive, complicated by acute anemia 2/2 gastric ulcers, duodenitis, thrombocytopenia. Admitted to TCU with debility for strengthening and rehabilitation. Objective: Allergies Penicillins Allergy (Severe, Verified 03/28/23 16:32) Anaphylaxis Current Medications Generic Name Dose Route Start Last Admin Trade Name Freq PRN Reason Stop Dose Admin Acetaminophen 1,000 mg 04/05/23 20:15 Acetaminophen 500 Mg Tablet PO Q6H PRN PRN Pain Score 1-10 Albuterol Sulfate 2.5 mg 04/05/23 14:09 Albuterol 2.5 Mg/3 Ml Vial.Neb. INHALATION Q2H PRN PRN SOB/Wheezing Albuterol/Ipratropium 3 ml 04/05/23 14:15 04/06/23 08:25 Ipratropium/Albuterol Sulfate 3 Ml Ampul.Neb INHALATION 3 ml Q6HWA.RT MARGARETTE Administration Budesonide 0.5 mg 04/05/23 14:15 04/06/23 08:25 Budesonide Respules 0.5 Mg/2 Ml Ampul.Neb. INHALATION 0.5 mg Q12H.RT MARGARETTE Administration Calamine/Phenol 1 applic 04/05/23 22:00 04/06/23 08:55 Menthol/Lanolin/Calamine/Znox 113 Gm Tube TOPICAL 1 applic BID MARGARETTE Administration Protocol Cholecalciferol 25 mcg 04/06/23 10:00 04/06/23 08:49 Cholecalciferol (Vit D3) 25 Mcg Tablet (1,000 Units) PO 25 mcg DAILY MARGARETTE Administration Fluticasone Propionate 1 spray 04/06/23 10:00 04/06/23 08:50 Fluticasone 0.05% 1 [facility] Nasal.Sry NASAL 1 spray DAILY MARGARETTE Administration Gabapentin 300 mg 04/05/23 22:00 04/06/23 08:52 Gabapentin 300 Mg Capsule PO 300 mg Q12 MARGARETTE Administration Itraconazole 200 mg 04/05/23 17:00 04/06/23 08:48 Itraconazole 100 Mg Capsule PO 200 mg BIDCM MARGARETTE Administration Magnesium Citrate 300 ml 02/15/24 20:14 Magnesium Citrate 300 Ml PO DAILY PRN Constipation Multivitamins 1 tablet 04/06/23 08:00 04/06/23 08:49 Multivitamins,Therapeutic Tablet PO 1 tablet DAILYCM [facility] Administration Multivitamins/Minerals 2 cap 04/05/23 17:00 04/06/23 08:48 Multivitamin (Healthy Eyes) Capsule PO 2 cap BIDCM MARGARETTE Administration Oxycodone HCl 5 mg 04/05/23 14:09 Oxycodone 5 Mg Tablet PO Q4H PRN PRN Pain Score 4-10 Pantoprazole Sodium 40 mg 04/05/23 22:00 04/06/23 08:49 Pantoprazole Sodium 40 Mg Tablet PO 40 mg BID MARGARETTE Administration Potassium Chloride 20 meq 04/07/23 08:00 Potassium Chloride Oral Tablet 20 Meq PO DAILYCM [facility] Senna/Docusate Sodium 1 tablet 04/05/23 22:00 04/06/23 08:49 Senna/Docusate Sodium 1 Tablet PO 1 tablet BID MARGARETTE Administration Tuberculin PPD 0.1 ml 04/13/23 10:00 Tuberculin,Purif.Prot.Deriv. 50 Tu/Ml Vial ID 04/13/23 10:01 X1 ONE Problem List (Updated 04/05/23 @ 20:[address] Edinson Irvin MD) History of blood clots (Acute) Histoplasmosis (Acute) COPD (chronic obstructive pulmonary disease) (Chronic) Edema (Acute) Duodenitis (Acute) Gastric ulcer (Acute) Acute anemia (Acute) Failure to thrive (Acute) Cellulitis of right lower extremity (Acute) Debility (Acute) Thrombocytopenia (Acute) Rheumatoid arthritis (Acute) Vital Signs Temp Pulse Resp BP Pulse Ox O2 Del Method 98.2 F 80 18 137/77 H 97 Room Air 04/05/23 13:44 04/06/23 08:25 04/06/23 08:25 04/05/23 13:44 04/06/23 08:25 04/06/23 08:25 Oxygen Delivery Method Room Air Weight: 57.878 kg Body Mass Index (BMI) 22.6 Sodium 135 mmol/L (136-145) L 04/06/23 05:09 Potassium 3.1 mmol/L (3.5-5.1) L 04/06/23 05:09 Chloride 103 mmol/L (98-107) 04/06/23 05:09 Carbon Dioxide 28.0 mmol/L (21.0-32.0) 04/06/23 05:09 Anion Gap 4 (5-15) L 04/06/23 05:09 BUN 21 mg/dL (7-18) H 04/06/23 05:09 Creatinine 0.58 mg/dL (0.55-1.02) 04/06/23 05:09 Est GFR (MDRD) Af Amer 131 mL/min (>60) 04/06/23 05:09 Est GFR (MDRD) Non-Af 109 mL/min (>60) 04/06/23 05:09 BUN/Creatinine Ratio 36.5 RATIO (10-20) H 04/06/23 05:09 Glucose 87 mg/dL (74-106) 04/06/23 05:09 Assessment/Plan: 1. Pain: acetaminophen 1000mg PO Q6H PRN pain (1-3) and oxycodone 5mg PO Q4H PRN pain (4-10). Resident no documented use of PRN medications. Please continue to monitor for increased/decreased S/S pain, falls/fractures (BEERs medication), Liver function (AST/ALT WNL 04/02/23) and PRN usage, constipation and respiratory depression.? 2. Bowel: senna/docusate 1T PO BID and magnesium citrate 300mL PO daily PRN constipation. Resident has not had any PRN doses. Last documented bowel movement 04/03. Please continue to monitor for constipation and PRN usage. 3. Gastric ulcer/duodenitis: pantoprazole 40mg PO BID. Continue to monitor for dark/tarry stool, coffee ground emesis, diarrhea (BEERs medication), constipation and magnesium (last WNL 04/01/23). Most recent Hgb 8.9 g/dL (04/16/23).? 4. COPD: Budesonide 0.5mg q12, Duoneb 3ml inhalation q6wa and albuterol 2.5mg Q2 PRN SOB/wheezing. No documented administrations of PRN medication for SOB/wheezing. Monitor for SOB, wheezing, increased sputum production. Monitor for shakiness, increased heart rate with albuterol administration (last 97 bpm). Monitor for increased risk of thrush with budesonide use, wash mouth out following use.? 5. Allergic Rhinitis: Flonase 1 spray nasal daily. Monitor allergy symptoms including nasal congestion, runny nose. Monitor for nasal irritation/bleeding. 6. History of Blood Clots/ DVT Prophylaxis: Warfarin currently on hold due to thrombocytopenia. Continue to monitor CBC and restart therapy when platelets > 50,000 (last 32,000 04/06/23). 7. Histoplasmosis: itraconazole 200mg PO BIDCM. Monitor for S/S of respiratory distress. Monitor for GI disturbance- N/V/D, abdominal pain. Per hospitalist note, resident to see Dr. Burger of infectious disease in 3 months. Medications for rheumatoid arthritis currently on hold until cleared by ID (methotrexate, leucovorin and Humira). 8. General Wellness: cholecalciferol 25 mcg PO daily, multivitamin 1T PO daily and Healthy Eyes 2 caps BIDCM. Monitor for s/s of maculae degeneration.?Please consider ordering a vitamin D level as there is no level in the chart. Thanks. 9. Hypokalemia (based on potassium of 3.1mmol/L): potassium chloride 20mEQ PO DAILYCM. Please continue to monitor potassium. Assessment/Plan for indications treated with psychotropic medications: 1. Neuropathic pain: gabapentin 300mg PO Q12H. GDR not appropriate as this medication is being used for neuropathic pain. Monitor for tingling/burning in extremities, dizziness, somnolence, falls/fractures (BEERs medication) and renal function (BEERs medication, frequency appropriate with CrCl 50 mL/min, Scr adjusted for age to 0.8). ? Medical chart and medication regimen reviewed. The following medication irregularities or issues were identified: 1. Cholecalciferol 25 mcg PO daily.?Please consider ordering a vitamin D level as there is no level in the chart. Thanks. Date Date of Note:: 04/06/23 Documented by User: Dr. Edinson Irvin MD 04/06/23 14:59 TCU RX Drug Regimen Review Provider Comments Provider responsibility Provider Comments to Recommendations by Pharmacy: Agree
[2023-04-06 16:00] VITALS: TEMP 36.8
[2023-04-06 19:04] VITALS: PULSE 111; RESP 22
[2023-04-07 06:29] VITALS: PULSE 69; RESP 16; O2SAT 99
[2023-04-07] MEDS: Ipratropium/Albuterol Sulfate 3 ML AMPUL.NEB INHALATION ×2 (06:29→19:25)
[2023-04-07] MEDS: Budesonide Respules 0.5 MG/2 ML AMPUL.NEB. INHALATION ×2 (06:29→19:25)
[2023-04-07 07:29] LABS: Absolute Lymphocyte Count 0.71 X10^3/uL (0.83-4.51); Absolute Neutrophil Count 3.4 X10^3/uL (2.0-7.7); Basophil# 0.03 X10^3/uL; Basophil% 0.6 % (0-1); Eosinophil# 0.22 X10^3/uL; Eosinophils% 4.6 % (0-5); Hematocrit 30.3 % (37-47); Hemoglobin 9.8 g/dL (12.0-15.0); Lymphocyte # 0.71 X10^3/ul (0.83-4.51); Lymphocyte % 14.9 % (19-41); Mean Corp Hgb Conc 32.3 g/dL (32-36); Mean Corpuscular Hgb 27.7 pg (27.0-32.0); Mean Corpuscular Volume 85.6 fL (81-99); Mean Platelet Vol. 11.2 fl (6.2-12.0); Monocyte% 8.4 % (0-10); NRBC Flagged by Analyzer 0 % (0-5); Neutrophil # 3.35 X10^3/uL (2.7-7.7); Neutrophil % 70.7 % (47-70); POSITIVE COUNT YES; POSITIVE MORPHOLOGY YES; Platelet Count 37 K/mm3 (150-450); RBC Distribution Width CV 23.2 % (11.6-14.6); RBC Distribution Width SD 71.4 fl (35.1-43.9); Red Blood Count 3.54 M/mm3 (4.2-5.4); White Blood Count 4.8 K/mm3 (4.4-11.0)
[2023-04-07 07:32] LABS: Differential Indicated SCAN CRITERIA MET
[2023-04-07 08:05] LABS: Anion Gap 6 (5-15); BUN 14 mg/dL (7-18); BUN/Creat Ratio 25.3 RATIO (10-20); Calcium,Total 7.9 mg/dL (8.5-10.1); Chloride 107 mmol/L (98-107); Creatinine, Serum 0.55 mg/dL (0.55-1.02); EST Glomerular Filtration Rate 113 mL/min (>60); Est Glom Filt Rate - Afr Amer 137 mL/min (>60); Estimated Creatinine Clearance 50.26 ml/min; Glucose 87 mg/dL (74-106); Potassium 3.8 mmol/L (3.5-5.1); Sodium Level 138 mmol/L (136-145)
[2023-04-07 08:06] LABS: Anisocytosis 3+
[2023-04-07 11:09] VITALS: BP 94/59; PULSE 83; RESP 18; O2SAT 99
[2023-04-07] MEDS: ITRACONAZOLE 100 MG CAPSULE 200 MG PO ×2 (11:12→17:43)
[2023-04-07] MEDS: Multivitamin (Healthy Eyes) Capsule 2 CAP PO ×2 (11:13→17:44)
[2023-04-07] MEDS: Potassium Chloride Oral Tablet 20 MEQ PO (11:13)
[2023-04-07] MEDS: Multivitamins,Therapeutic Tablet 1 TABLET PO (11:13)
[2023-04-07] MEDS: Gabapentin 300 MG Capsule PO ×2 (11:13→21:31)
[2023-04-07] MEDS: Pantoprazole Sodium 40 MG Tablet PO ×2 (11:13→21:31)
[2023-04-07] MEDS: Cholecalciferol (VIT D3) 25 MCG TABLET (1,000 UNITS) PO (11:13)
[2023-04-07] MEDS: Fluticasone 0.05% 1 SPRAY NASAL.SRY NASAL (11:15)
[2023-04-07] MEDS: Menthol/Lanolin/Calamine/Znox 113 GM Tube 1 APPLIC TOPICAL ×2 (11:16→21:32)
[2023-04-07 15:00] VITALS: BP 108/63; PULSE 93; RESP 23; TEMP 37.3; O2SAT 96
[2023-04-07 19:25] VITALS: PULSE 94; RESP 26
[2023-04-07] MEDS: Senna/Docusate Sodium 1 Tablet PO (21:32)
[2023-04-08 07:03] VITALS: PULSE 94; RESP 20; O2SAT 93
[2023-04-08] MEDS: Budesonide Respules 0.5 MG/2 ML AMPUL.NEB. INHALATION ×2 (07:03→19:05)
[2023-04-08] MEDS: Ipratropium/Albuterol Sulfate 3 ML AMPUL.NEB INHALATION ×3 (07:03→19:05)
[2023-04-08 07:13] LABS: Absolute Lymphocyte Count 0.77 X10^3/uL (0.83-4.51); Absolute Neutrophil Count 3.1 X10^3/uL (2.0-7.7); Basophil# 0.04 X10^3/uL; Basophil% 0.9 % (0-1); Eosinophil# 0.22 X10^3/uL; Eosinophils% 4.7 % (0-5); Hematocrit 28.4 % (37-47); Hemoglobin 9.3 g/dL (12.0-15.0); Lymphocyte # 0.77 X10^3/ul (0.83-4.51); Lymphocyte % 16.6 % (19-41); Mean Corp Hgb Conc 32.7 g/dL (32-36); Mean Corpuscular Hgb 28.1 pg (27.0-32.0); Mean Corpuscular Volume 85.8 fL (81-99); Mean Platelet Vol. 10.6 fl (6.2-12.0); Monocyte% 10.8 % (0-10); NRBC Flagged by Analyzer 0 % (0-5); Neutrophil # 3.07 X10^3/uL (2.7-7.7); Neutrophil % 66.1 % (47-70); POSITIVE COUNT YES; POSITIVE MORPHOLOGY YES; RBC Distribution Width CV 23.1 % (11.6-14.6); RBC Distribution Width SD 70.7 fl (35.1-43.9); Red Blood Count 3.31 M/mm3 (4.2-5.4); White Blood Count 4.6 K/mm3 (4.4-11.0)
[2023-04-08 07:52] LABS: Anion Gap 5 (5-15); BUN 16 mg/dL (7-18); BUN/Creat Ratio 30.4 RATIO (10-20); Calcium,Total 7.9 mg/dL (8.5-10.1); Chloride 105 mmol/L (98-107); Creatinine, Serum 0.53 mg/dL (0.55-1.02); EST Glomerular Filtration Rate 120 mL/min (>60); Est Glom Filt Rate - Afr Amer 146 mL/min (>60); Estimated Creatinine Clearance 50.26 ml/min; Glucose 92 mg/dL (74-106); Potassium 3.6 mmol/L (3.5-5.1); Sodium Level 136 mmol/L (136-145)
[2023-04-08 08:09] LABS: Platelet Count 42 K/mm3 (150-450)
[2023-04-08] MEDS: Gabapentin 300 MG Capsule PO ×2 (09:10→21:56)
[2023-04-08] MEDS: Multivitamin (Healthy Eyes) Capsule 2 CAP PO ×2 (09:11→17:24)
[2023-04-08] MEDS: Senna/Docusate Sodium 1 Tablet PO ×2 (09:11→21:57)
[2023-04-08] MEDS: Cholecalciferol (VIT D3) 25 MCG TABLET (1,000 UNITS) PO (09:11)
[2023-04-08] MEDS: Multivitamins,Therapeutic Tablet 1 TABLET PO (09:11)
[2023-04-08] MEDS: Potassium Chloride Oral Tablet 20 MEQ PO (09:12)
[2023-04-08] MEDS: Pantoprazole Sodium 40 MG Tablet PO ×2 (09:12→21:57)
[2023-04-08] MEDS: ITRACONAZOLE 100 MG CAPSULE 200 MG PO ×2 (09:12→17:24)
[2023-04-08] MEDS: Fluticasone 0.05% 1 SPRAY NASAL.SRY NASAL (09:13)
[2023-04-08] MEDS: Menthol/Lanolin/Calamine/Znox 113 GM Tube 1 APPLIC TOPICAL ×2 (09:15→21:57)
[2023-04-08 09:24] VITALS: BP 100/48; PULSE 77; RESP 18; O2SAT 98
--- NOTE | 2023-04-08 10:30 | NURSING ---
Addendum entered by Renuka Grimes 04/08/23 17:32: Pt requested evening meds whole in . No difficulty with meds. Lungs continue clear to auscultation. Denies dyspnea, none noted. Dressings to BLE changed. When removed adaptic from top of left foot, wound began bleeding; applied firm pressure for 5min, resolved. No other issues. Pt has no complaints at this time. Original Note: Pt had coughing episode after taking AM pill, after a minute coughed up a whole pill. Able to swallow and speak throughout episode. Reapproached with rest of AM medications approximately 20 min later, pt swallowed meds whole with pudding, no complications. Lung sounds clear. Pt denies dyspnea, no complaints at this time.
--- NOTE | 2023-04-08 11:52 | NURSING ---
Pt requested Chloraseptic PRN for sore throat. Dr Irvin gave verbal order, RN entered order.
[2023-04-08 13:38] VITALS: PULSE 88; RESP 18
[2023-04-08 15:20] VITALS: BP 98/54; PULSE 96; RESP 22; TEMP 37.3; O2SAT 95
[2023-04-08] MEDS: Phenol/Sodium Phenolate 180ML 3 SPRAY MUCOUS MEM ×2 (17:23→21:58)
[2023-04-08 19:05] VITALS: PULSE 97; RESP 20
[2023-04-09 05:52] LABS: Absolute Lymphocyte Count 0.99 X10^3/uL (0.83-4.51); Absolute Neutrophil Count 2.8 X10^3/uL (2.0-7.7); Basophil# 0.04 X10^3/uL; Basophil% 0.9 % (0-1); Eosinophil# 0.24 X10^3/uL; Eosinophils% 5.3 % (0-5); Hematocrit 28.1 % (37-47); Lymphocyte # 0.99 X10^3/ul (0.83-4.51); Lymphocyte % 21.7 % (19-41); Mean Corpuscular Volume 87.3 fL (81-99); Mean Platelet Vol. 10.3 fl (6.2-12.0); Monocyte# 0.43 X10^3/uL; Monocyte% 9.4 % (0-10); NRBC Flagged by Analyzer 0 % (0-5); Neutrophil # 2.83 X10^3/uL (2.7-7.7); POSITIVE COUNT YES; POSITIVE MORPHOLOGY YES; RBC Distribution Width CV 23.4 % (11.6-14.6); RBC Distribution Width SD 72.9 fl (35.1-43.9); Red Blood Count 3.22 M/mm3 (4.2-5.4); White Blood Count 4.6 K/mm3 (4.4-11.0)
[2023-04-09 06:15] LABS: Differential Indicated SCAN CRITERIA MET
[2023-04-09 06:26] LABS: Anion Gap 4 (5-15); BUN 15 mg/dL (7-18); BUN/Creat Ratio 26.1 RATIO (10-20); Calcium,Total 7.9 mg/dL (8.5-10.1); Chloride 104 mmol/L (98-107); Creatinine, Serum 0.57 mg/dL (0.55-1.02); EST Glomerular Filtration Rate 109 mL/min (>60); Est Glom Filt Rate - Afr Amer 132 mL/min (>60); Estimated Creatinine Clearance 50.26 ml/min; Glucose 91 mg/dL (74-106); Potassium 3.6 mmol/L (3.5-5.1); Sodium Level 136 mmol/L (136-145)
--- NOTE | 2023-04-09 07:35 | NURSING ---
Spoke w/ Dr. Irvin via phone to question if pt should be sent to the ED if platelet count is less than 10,000. Per Dr. Irvin- if pt would require a transfusion, the process would be similar to orders for PRBC transfusion.
[2023-04-09 07:38] LABS: Platelet Count 50 K/mm3 (150-450)
[2023-04-09 07:45] VITALS: PULSE 87; RESP 19
[2023-04-09] MEDS: Ipratropium/Albuterol Sulfate 3 ML AMPUL.NEB INHALATION ×2 (07:45→19:21)
[2023-04-09] MEDS: Budesonide Respules 0.5 MG/2 ML AMPUL.NEB. INHALATION ×2 (07:45→19:21)
[2023-04-09] MEDS: ITRACONAZOLE 100 MG CAPSULE 200 MG PO ×2 (09:51→17:27)
[2023-04-09] MEDS: Multivitamin (Healthy Eyes) Capsule 2 CAP PO ×2 (09:51→17:27)
[2023-04-09] MEDS: Potassium Chloride Oral Tablet 20 MEQ PO (09:51)
[2023-04-09] MEDS: Fluticasone 0.05% 1 SPRAY NASAL.SRY NASAL (09:52)
[2023-04-09] MEDS: Pantoprazole Sodium 40 MG Tablet PO ×2 (09:52→21:47)
[2023-04-09] MEDS: Cholecalciferol (VIT D3) 25 MCG TABLET (1,000 UNITS) PO (09:52)
[2023-04-09] MEDS: Multivitamins,Therapeutic Tablet 1 TABLET PO (09:52)
[2023-04-09] MEDS: Senna/Docusate Sodium 1 Tablet PO ×2 (09:52→21:48)
[2023-04-09] MEDS: Gabapentin 300 MG Capsule PO ×2 (09:54→21:46)
[2023-04-09 10:00] VITALS: BP 108/60; PULSE 96
[2023-04-09] MEDS: Menthol/Lanolin/Calamine/Znox 113 GM Tube 1 APPLIC TOPICAL ×2 (10:01→21:51)
--- NOTE | 2023-04-09 10:25 | NURSING ---
DRESSING CHANGED TO BRUNO LOWER LEGS PER ORDER. PT TOLERATED WELL.
[2023-04-09 11:30] VITALS: PULSE 97; RESP 18; O2SAT 96
--- NOTE | 2023-04-09 11:59 | ST.MBS ---
Modified Barium Swallow Patient Information Study Date: 04/09/23 Study Time: 13:30 Direct Billable Minutes: 116 Total Minutes procedure & reportin Diagnosis: COPD J44.9; FTT adult R62.7 Referring Physician: Edinson Irvin Chi Medical History: Haydee Gibbs is a 77yo F who presented to [facility] ED w/ bilateral lower extremity edema/weakness and FTT. PMHx re: colitis, COPD (chronic obstructive pulmonary disease), COVID-19, DVT (deep venous thrombosis), former smoker, histoplasmosis, pulmonary embolism, rheumatoid arthritis and thrombocytopenia. Patient being medically treated for cellulitis. Dr. Orellana was consulted for suspected GI bleed while on acute. Dr. Orellana performed EGD oozing gastric ulcers injected, non-bleeding gastric ulcers biopsied, bile duodenitis. Admit to TCU with debility, here for rehabilitation, strengthening, prior to discharge home alone. ST consulted for difficulty w/ swallow function and cognitive evaluation. BSE completed 04/09/23 due to coughing episode and regurgitation of medication with RN. TRANSFER AND PUMPHOUSE OPERATOR recommended Regular textures / Thin liquids with plan for MBSS to further assess oropharyngeal swallow function and aspiration risk. She had coughing at bedside with meds whole in followed by liquid wash. Current Diet Ordered: Regular textures / Thin liquids Dentition: WNL Mental Status: Impaired (Cognitive impairment per BCAT completed with TRANSFER AND PUMPHOUSE OPERATOR today.) Respiratory Status: Oxygenating on Room Air Penetration-Aspiration Scale Penetration-Aspiration Scale: OBJECTIVE ASSESSMENT OF SWALLOW FUNCTION (QUANTITATIVE ? PER TRIAL): PENETRATION / ASPIRATION SCALE (GRADY): 1 = does not enter airway 2 = enters airway/above vocal folds/ejected 3 = enters airway/above vocal folds/not ejected 4 = enters airway/contacts vocal folds/ejected 5 = enters airway/contacts vocal folds/not ejected 6 = enters airway/below vocal folds/ejected 7 = enters airway/below vocal folds/not ejected despite effort 8 = enters airway/below vocal folds/no effort VIDEOFLOROSCOPIC SCALE SCORE (GRADY): Grade I = aspiration of material that has penetrated into the laryngeal vestibule, intact cough reflex Grade II = aspiration < 10 % of the bolus, intact cough reflex Grade III = aspiration of < 10 % of the bolus, reduced cough reflex or aspiration of > 10 % of the bolus, intact cough reflex Grade IV = aspiration of > 10 % of the bolus, reduced cough reflex Penetration-Aspiration Scale Score Thin Liquid via teaspoon: Result: 1= does not enter airway Thin Liquid via teaspoon Trial 2: Result: 2= enter airway/above vocal folds/ejected Thin Liquid via large single sip: cup: Result: 8= enters airway/below vocal folds/no effort [place] Thick Liquid via large single sip: cup: Result: 8= enters airway/below vocal folds/no effort Pudding - esophageal screen: Result: 1= does not enter airway 1/2 Cookie: Result: 1= does not enter airway Thin Liquid via single sip: straw: Result: 8= enters airway/below vocal folds/no effort Thin Liquid via small single sip: cup: Result: 5= enters airways/contacts vocal folds/not ejected Thin Liquid via small single sip: cup Effortful swallow: Result: 8= enters airway/below vocal folds/no effort Thin Liquid via small single sip: cup Chin tuck: Result: 8= enters airway/below vocal folds/no effort Thin Liquid via small single sip: cup Trial 2: Result: 8= enters airway/below vocal folds/no effort Thin Liquid via teaspoon Trial 3: Result: 8= enters airway/below vocal folds/no effort Honey Thick Liquid via small single sip: cup: Result: 1= does not enter airway Barium tablet with pudding: Result: 1= does not enter airway Honey Thick Liquid via small single sip: cup Trial 2: Result: 1= does not enter airway Oral Phase Labial Seal: No Labial Escape Tongue Control During Bolus Hold: Posterior escape of greater than half of bolus (large sips of thin liquids) Bolus Preparation/Mastication: Slow prolonged chewing/mashing with complete recollection Bolus Transport/Lingual Motion: Delayed initiation of tongue motion Oral Residue: Trace residue lining oral structures Pharyngeal Phase Initiation of Pharyngeal Swallow: Bolus head in pyriforms Soft Palate Elevation: Trace column of contrast/air between soft palate and pharyngeal wall Laryngeal Elevation: Partial superior movement thyroid cart/partial apprx aryt-epig petiole Anterior Hyoid Excursion: Partial anterior movement (minimal) Epiglottic Movement: Complete inversion Laryngeal Vestibule Closure at Height of Swallow: Incomplete; narrow column of air/contrast in laryngeal vestibule Pharyngeal Stripping Wave: Present - diminished Pharyngoesophageal Segment Opening: Parital distension and partial duration; parital obstruction of flow Tongue Base Retraction: Narrow column of contrast between tongue base & post. pharyngeal wall Pharyngeal Residue: Minimal to no pharyngeal clearance (barium tablet) Esophageal Phase Esophageal Clearance: Complete clearance Diagnosis/Impression Diagnosis: Mild-moderate oropharyngeal dysphagia R13.12 Impression: The oral phase is primarily marked by? -Decreased bolus control with premature posterior loss to the pharynx and even to the laryngeal vestibule and vocal folds with large sips. -Delayed tongue motion for A-P transport. -Complete mastication of cookie. The pharyngeal phase is primarily marked by? -Delayed swallow onset, most notable with large sips requiring double swallows to clear. -Decreased laryngeal elevation and minimal anterior hyoid excursion resulting in decreased airway closure. -Decreased tongue base retraction and pharyngeal stripping wave with resulting mild/moderate pharyngeal residues in the vallecula, which was most pronounced with trials of thicker viscosities (pudding, cookie) and barium tablet (provided in tsp of pudding). Honey thick liquids cleared barium tablet from the vallecula without resulting in aspiration. -SILENT aspiration of thin liquids via tsp, cup, and straw. SILENT aspiration of nectar/mildly thick liquids via cup. Decreased bolus size and cough and re-swallows were most effective in decreasing aspiration risk. Recommendations Diet: Regular Textures and Thin Liquids Comment: Medications whole with honey thick liquids Compensatory Strategies: Small Bites, Small Sips (Cough and re-swallows), Slow Rate (Sips one at a time), Alternate bites/solids and sips/liquids, Sitting upright and Remain sitting upright for 30 minutes after PO intake Supervision: Distant Supervision Recommend Repeat Modified Barium Swallow: TBD Need for Skilled Speech Therapy Services: Yes Comment: -Train the patient in use of strategies to decrease risk for aspiration. -Ongoing assessment of diet tolerance of recommended textures. IF WORSENING RESPIRATORY STATUS, would consider increasing supervision needs and/or downgrading the patient to honey/moderately thickened liquids. -Train the patient oropharyngeal exercise program to improve bolus control, swallow onset, and airway closure (lingual resistance, Doretha, CTAR, Effortful breath hold and re-swallow). Education Completed: 1. Described result of evaluation., 2. Pt understands evaluation & agrees with goals and treatment plan. and 7. Pt requires further education on strategies & risks. Comment: Educated patient, RN, and treating TRANSFER AND PUMPHOUSE OPERATOR on results and recommendations of MBSS. Handout of recommendations was posted in patient's room. Status Active ST Patient: Active Contact Information [facility] Speech Therapy:: Jane Lux M.A. [facility]-TRANSFER AND PUMPHOUSE OPERATOR? Speech-Language Pathologist?? [facility] [address]?? [place] [address]?? [email or web address]?? [phone]??
--- NOTE | 2023-04-09 13:55 | NURSING ---
Addendum entered by Sergey Dixon 04/09/23 14:25: PT RETURNED TO FLOOR FROM SWALLOW TEST AT 1405. Original Note: PT LEFT FLOOR FOR SWALLOW TEST AT 1320.
--- NOTE | 2023-04-09 15:02 | CASEMGMT ---
Social Work Met with patient to complete initial assessment. Introduced self and role. Verified contacts. Patient confirmed code status as full code. Educated to [facility] insurance with NRD 04/09 and continued stay is not guaranteed with each review. Pt's goal is to return home alone at [facility]. Pt expressed concern that he does not have any family; local support are two friends and neighbors. None are able to provide physical assistance. Pt noted she has 13 steps to basement laundry and has a broken glass shower door that reportedly needs fixed. See SW assessment for further details. SW provided pt with resource list of possible companies to fix bathroom. Pt agreed to start phone calls to get fixed prior to DC home. Pt also identified she would like a BSC for DC. SW will coordinate all needs at [place]. Will continue to follow. CAITIE Nickerson
[2023-04-09 15:31] VITALS: BP 100/42; PULSE 93; RESP 14; TEMP 37.4; O2SAT 95
--- NOTE | 2023-04-09 16:26 | CPS ---
patient not in room at this time. taken for a swallow test
[2023-04-09 19:21] VITALS: PULSE 97; RESP 22
[2023-04-09] MEDS: Phenol/Sodium Phenolate 180ML 3 SPRAY MUCOUS MEM (21:50)
[2023-04-10 05:53] LABS: Absolute Lymphocyte Count 1.08 X10^3/uL (0.83-4.51); Absolute Neutrophil Count 3.1 X10^3/uL (2.0-7.7); Basophil# 0.04 X10^3/uL; Basophil% 0.8 % (0-1); Eosinophil# 0.31 X10^3/uL; Hematocrit 27.8 % (37-47); Hemoglobin 9.3 g/dL (12.0-15.0); Lymphocyte # 1.08 X10^3/ul (0.83-4.51); Mean Corp Hgb Conc 33.5 g/dL (32-36); Mean Corpuscular Hgb 28.9 pg (27.0-32.0); Mean Corpuscular Volume 86.3 fL (81-99); Mean Platelet Vol. 10.7 fl (6.2-12.0); Monocyte# 0.55 X10^3/uL; Monocyte% 10.7 % (0-10); NRBC Flagged by Analyzer 0 % (0-5); Neutrophil # 3.13 X10^3/uL (2.7-7.7); Neutrophil % 60.9 % (47-70); POSITIVE COUNT YES; POSITIVE MORPHOLOGY YES; Platelet Count 72 K/mm3 (150-450); RBC Distribution Width CV 23.1 % (11.6-14.6); RBC Distribution Width SD 71.4 fl (35.1-43.9); Red Blood Count 3.22 M/mm3 (4.2-5.4); White Blood Count 5.1 K/mm3 (4.4-11.0)
[2023-04-10 05:56] LABS: Differential Indicated SCAN CRITERIA MET
[2023-04-10 06:19] LABS: Anisocytosis 2+
[2023-04-10] MEDS: Ipratropium/Albuterol Sulfate 3 ML AMPUL.NEB INHALATION ×2 (07:00→18:58)
--- NOTE | 2023-04-10 07:39 | NURSING ---
Pt complaining of increased swelling in right lower extremity this morning. Upon assessment, right lower extremity noted to be reddened and very warm, with 2+ pitting edema. Pt recently had cellulitis in this extremity. Written communication left for Dr. Irvin.
[2023-04-10] MEDS: Multivitamin (Healthy Eyes) Capsule 2 CAP PO ×2 (08:20→17:30)
[2023-04-10 08:21] VITALS: PULSE 82; RESP 16; O2SAT 98
[2023-04-10] MEDS: Pantoprazole Sodium 40 MG Tablet PO ×2 (08:21→22:07)
[2023-04-10] MEDS: ITRACONAZOLE 100 MG CAPSULE 200 MG PO ×2 (08:21→17:30)
[2023-04-10] MEDS: Potassium Chloride Oral Tablet 20 MEQ PO (08:21)
[2023-04-10] MEDS: Menthol/Lanolin/Calamine/Znox 113 GM Tube 1 APPLIC TOPICAL ×2 (08:22→22:05)
[2023-04-10] MEDS: Fluticasone 0.05% 1 SPRAY NASAL.SRY NASAL (08:22)
[2023-04-10] MEDS: Multivitamins,Therapeutic Tablet 1 TABLET PO (08:22)
[2023-04-10] MEDS: Senna/Docusate Sodium 1 Tablet PO (08:23)
[2023-04-10] MEDS: Cholecalciferol (VIT D3) 25 MCG TABLET (1,000 UNITS) PO (08:23)
[2023-04-10] MEDS: Gabapentin 300 MG Capsule PO ×2 (08:27→22:06)
[2023-04-10 10:00] VITALS: PULSE 94; RESP 16; O2SAT 97
--- NOTE | 2023-04-10 11:22 | WOUNDNOTE ---
wound photo: right lower leg
--- NOTE | 2023-04-10 11:23 | WOUNDNOTE ---
wound photo: right lower leg
--- NOTE | 2023-04-10 11:24 | WOUNDNOTE ---
wound photo: right foot
--- NOTE | 2023-04-10 11:24 | WOUNDNOTE ---
wound photo: right lateral heel
--- NOTE | 2023-04-10 11:25 | WOUNDNOTE ---
wound photo: left foot
[2023-04-10 13:50] VITALS: BP 108/57; PULSE 86; RESP 17; TEMP 36.9; O2SAT 99
[2023-04-10] MEDS: Doxycycline 100 MG CAPSULE PO (14:01)
[2023-04-10 14:06] VITALS: BMI 22.9
[2023-04-10 18:58] VITALS: PULSE 86; RESP 20
[2023-04-10] MEDS: Budesonide Respules 0.5 MG/2 ML AMPUL.NEB. INHALATION (18:58)
[2023-04-10] MEDS: Phenol/Sodium Phenolate 180ML 3 SPRAY MUCOUS MEM (22:10)
[2023-04-11] MEDS: Doxycycline 100 MG CAPSULE PO ×2 (04:12→16:07)
[2023-04-11 05:46] LABS: Absolute Lymphocyte Count 0.94 X10^3/uL (0.83-4.51); Absolute Neutrophil Count 2.1 X10^3/uL (2.0-7.7); Basophil# 0.03 X10^3/uL; Basophil% 0.8 % (0-1); Eosinophil# 0.31 X10^3/uL; Eosinophils% 8.1 % (0-5); Hematocrit 27.6 % (37-47); Lymphocyte # 0.94 X10^3/ul (0.83-4.51); Lymphocyte % 24.7 % (19-41); Mean Corp Hgb Conc 32.6 g/dL (32-36); Mean Corpuscular Hgb 28.5 pg (27.0-32.0); Mean Corpuscular Volume 87.3 fL (81-99); Mean Platelet Vol. 10.7 fl (6.2-12.0); Monocyte# 0.44 X10^3/uL; Monocyte% 11.5 % (0-10); NRBC Flagged by Analyzer 0 % (0-5); Neutrophil # 2.07 X10^3/uL (2.7-7.7); Neutrophil % 54.4 % (47-70); POSITIVE COUNT YES; POSITIVE MORPHOLOGY YES; Platelet Count 91 K/mm3 (150-450); RBC Distribution Width CV 22.8 % (11.6-14.6); RBC Distribution Width SD 71.8 fl (35.1-43.9); Red Blood Count 3.16 M/mm3 (4.2-5.4); White Blood Count 3.8 K/mm3 (4.4-11.0)
[2023-04-11 05:56] LABS: Differential Indicated SCAN CRITERIA MET
[2023-04-11 06:18] LABS: International Normalized Ratio 1.1; Prothrombin Time (Protime)PT. 14.6 SECONDS (11.7-14.9)
[2023-04-11 06:20] LABS: Differential Comment SCANNED
[2023-04-11 06:21] LABS: Anisocytosis 1+; Platelet Estimate MOD DEC (ADEQ)
[2023-04-11] MEDS: ITRACONAZOLE 100 MG CAPSULE 200 MG PO ×2 (09:39→17:27)
[2023-04-11] MEDS: Multivitamin (Healthy Eyes) Capsule 2 CAP PO ×2 (09:39→17:27)
[2023-04-11] MEDS: Potassium Chloride Oral Tablet 20 MEQ PO (09:40)
[2023-04-11] MEDS: Fluticasone 0.05% 1 SPRAY NASAL.SRY NASAL (09:41)
[2023-04-11] MEDS: Multivitamins,Therapeutic Tablet 1 TABLET PO (09:41)
[2023-04-11] MEDS: Pantoprazole Sodium 40 MG Tablet PO ×2 (09:41→21:22)
[2023-04-11] MEDS: Menthol/Lanolin/Calamine/Znox 113 GM Tube 1 APPLIC TOPICAL ×2 (09:42→21:27)
[2023-04-11] MEDS: Cholecalciferol (VIT D3) 25 MCG TABLET (1,000 UNITS) PO (09:42)
[2023-04-11] MEDS: Gabapentin 300 MG Capsule PO ×2 (09:45→21:22)
--- NOTE | 2023-04-11 11:10 | CASEMGMT ---
Social Work IDT met with patient and friend, Milena, present, then other friend Padmini, via conference call for care plan meeting. Discussed patient's progress in PT/OT/ST/SN. Educated to [facility] insurance with NRD 04/16 and continued stay is not guaranteed with each review. IDT expressed concern with pt returning home alone with pt's high anxiety, inattention and balance. SW discussed starting pt on daily antianxiety med for ongoing stabilization vs the PRN medication ordered. Pt agreed. SUNNY sent secure message to to update, if elected, and Dr agreed. Pt also has wound care. Offered resources for FUEL ASSEMBLER for ADLs, medical alert. SW to coordinate skilled HHC and any DME needed at DC. Will continue to follow for DC planning. CAITIE NickersonW
[2023-04-11 12:44] VITALS: BP 118/51; PULSE 83; RESP 16; TEMP 36.3; O2SAT 99
[2023-04-11] MEDS: Citalopram 10 MG Tablet PO (12:56)
[2023-04-11 13:33] VITALS: PULSE 78; RESP 18
[2023-04-11] MEDS: Budesonide Respules 0.5 MG/2 ML AMPUL.NEB. INHALATION ×2 (13:34→22:11)
[2023-04-11] MEDS: Ipratropium/Albuterol Sulfate 3 ML AMPUL.NEB INHALATION ×2 (13:34→22:11)
[2023-04-11 15:15] VITALS: PULSE 100; RESP 16; O2SAT 93
--- NOTE | 2023-04-11 15:20 | CHAPLAIN ---
Type of Pastoral Visit _x__ Initial Visit ___ Follow-up Visit ___ On-call Visit ___ General Patient Visit ___ Spiritual Assessment ___ Family Conference ___ Bereavement ___ Rapid Response ___ Code Blue ___ Other (describe below) Pastoral Care Referral From _x__ Patient ___ Family ___ Nurse ___ Physician ___ Vice President Global Digital Marketing ___ Office Machines Teacher ___ Other (describe below) Sacrament/Intervention _x__ Active listening ___ Anointing ___ Yazidism ___ Bereavement ___ Communion ___ Adia exploration ___ _x__ Life review _x__ Prayer ___ Reconciliation ___ Sacrament of Sick _x__ Supportive presence ___ Wedding ___ Other (describe below) Pastoral Comments patient was seen last week in PCU and learned about her life and many activities at that time; pt reports on her progress and admits that she has some concerns; pt states she will probably need to pick an AL to live in and receive rehab; pt is thinking about her future and admits to some concerns about it and to how the adjustments might go; pt has small family so support from them is limited; pt has some friends who are helping her; pt given time to talk and be expressive; presence and prayer offered to her for care
--- NOTE | 2023-04-11 15:27 | NURSING ---
DRESSINGS TO BRUNO LOWER LEGS AND FEET DONE TODAY BY RN.
[2023-04-11] MEDS: Acetaminophen 500 MG Tablet 1000 MG PO (21:23)
[2023-04-11 22:09] VITALS: PULSE 76; RESP 18; O2SAT 96
[2023-04-12] MEDS: Doxycycline 100 MG CAPSULE PO ×2 (04:19→16:17)
[2023-04-12 05:16] VITALS: PULSE 71; RESP 16; O2SAT 97
[2023-04-12 05:58] LABS: Absolute Lymphocyte Count 1.14 X10^3/uL (0.83-4.51); Absolute Neutrophil Count 2.1 X10^3/uL (2.0-7.7); Basophil# 0.05 X10^3/uL; Basophil% 1.2 % (0-1); Eosinophil# 0.36 X10^3/uL; Eosinophils% 8.7 % (0-5); Hematocrit 30.9 % (37-47); Hemoglobin 10.1 g/dL (12.0-15.0); Lymphocyte # 1.14 X10^3/ul (0.83-4.51); Lymphocyte % 27.6 % (19-41); Mean Corp Hgb Conc 32.7 g/dL (32-36); Mean Corpuscular Hgb 28.4 pg (27.0-32.0); Mean Corpuscular Volume 86.8 fL (81-99); Mean Platelet Vol. 9.8 fl (6.2-12.0); Monocyte# 0.47 X10^3/uL; Monocyte% 11.4 % (0-10); NRBC Flagged by Analyzer 0 % (0-5); Neutrophil # 2.09 X10^3/uL (2.7-7.7); Neutrophil % 50.6 % (47-70); POSITIVE MORPHOLOGY YES; Platelet Count 119 K/mm3 (150-450); RBC Distribution Width CV 22.8 % (11.6-14.6); RBC Distribution Width SD 72.1 fl (35.1-43.9); Red Blood Count 3.56 M/mm3 (4.2-5.4); White Blood Count 4.1 K/mm3 (4.4-11.0)
[2023-04-12 06:24] LABS: Differential Indicated SCAN CRITERIA MET
[2023-04-12 07:14] VITALS: PULSE 85; RESP 17; O2SAT 100
[2023-04-12] MEDS: Budesonide Respules 0.5 MG/2 ML AMPUL.NEB. INHALATION ×2 (07:14→19:26)
[2023-04-12] MEDS: Ipratropium/Albuterol Sulfate 3 ML AMPUL.NEB INHALATION ×2 (07:14→19:26)
[2023-04-12] MEDS: Multivitamin (Healthy Eyes) Capsule 2 CAP PO ×2 (09:17→17:46)
[2023-04-12] MEDS: ITRACONAZOLE 100 MG CAPSULE 200 MG PO ×2 (09:17→17:46)
[2023-04-12] MEDS: Potassium Chloride Oral Tablet 20 MEQ PO (09:17)
[2023-04-12] MEDS: Multivitamins,Therapeutic Tablet 1 TABLET PO (09:17)
[2023-04-12] MEDS: Pantoprazole Sodium 40 MG Tablet PO ×2 (09:18→21:46)
[2023-04-12] MEDS: Cholecalciferol (VIT D3) 25 MCG TABLET (1,000 UNITS) PO (09:18)
[2023-04-12] MEDS: Citalopram 10 MG Tablet PO (09:18)
[2023-04-12] MEDS: Menthol/Lanolin/Calamine/Znox 113 GM Tube 1 APPLIC TOPICAL ×2 (09:18→21:48)
[2023-04-12] MEDS: Fluticasone 0.05% 1 SPRAY NASAL.SRY NASAL (09:19)
[2023-04-12] MEDS: Gabapentin 300 MG Capsule PO ×2 (09:23→21:46)
[2023-04-12 09:28] VITALS: BP 103/59; PULSE 92
[2023-04-12 13:29] VITALS: BP 107/57; PULSE 89; RESP 16; TEMP 37.1; O2SAT 95
--- NOTE | 2023-04-12 16:14 | CASEMGMT ---
Social Work BIMS () and PHQ-2 () completed for MDS assessment. Yu Gomez MSW PEDIATRIC SPEECH LANGUAGE PATHOLOGIST
[2023-04-12 19:26] VITALS: PULSE 89; RESP 18
[2023-04-13] MEDS: Doxycycline 100 MG CAPSULE PO ×2 (04:04→16:13)
[2023-04-13 06:00] LABS: International Normalized Ratio 1.1
[2023-04-13 06:20] LABS: Anion Gap 4 (5-15); BUN 20 mg/dL (7-18); BUN/Creat Ratio 38.2 RATIO (10-20); Calcium,Total 7.8 mg/dL (8.5-10.1); Chloride 104 mmol/L (98-107); Creatinine, Serum 0.52 mg/dL (0.55-1.02); EST Glomerular Filtration Rate 121 mL/min (>60); Est Glom Filt Rate - Afr Amer 147 mL/min (>60); Estimated Creatinine Clearance 50.26 ml/min; Glucose 89 mg/dL (74-106); Potassium 3.5 mmol/L (3.5-5.1); Sodium Level 136 mmol/L (136-145)
[2023-04-13 06:46] VITALS: PULSE 96; RESP 18; O2SAT 96
[2023-04-13] MEDS: Budesonide Respules 0.5 MG/2 ML AMPUL.NEB. INHALATION ×2 (06:46→19:46)
[2023-04-13] MEDS: Ipratropium/Albuterol Sulfate 3 ML AMPUL.NEB INHALATION ×3 (06:47→19:46)
--- NOTE | 2023-04-13 08:35 | RAD_ITS ---
STUDY: X-RAY CHEST REASON FOR EXAM: Female, 77 years old. Cough. TECHNIQUE: PA and lateral views of the chest. COMPARISON: Comparison is made with prior examination dated March 31, 2023. FINDINGS: Findings suggest a mild degree of CHF with some blunting of both costophrenic angles and bibasilar atelectasis worse on the left lung base. There is borderline cardiomegaly. Normal mediastinum and vivien. Normal visualized pulmonary arteries. There is atherosclerotic calcification of the aortic arch with tortuosity. There is demineralization of the osseous structures. Normal visualized ribs, clavicles, and shoulders. There is no demonstrated abnormality of the visualized soft tissue structures of the upper abdomen. RAD/Chest PA and Lateral IMPRESSION: Findings suggestive of mild degree of CHF with some blunting of both clustering angles and bibasilar atelectasis. Electronically Signed: Geo Ni MD at 12:47 EST ,
--- NOTE | 2023-04-13 09:03 | NURSING ---
Rip And Groove Machine Operator Note; MDS for 04/12/2023 Complete
[2023-04-13] MEDS: Citalopram 10 MG Tablet PO (09:14)
[2023-04-13] MEDS: Potassium Chloride Oral Tablet 20 MEQ PO (09:14)
[2023-04-13] MEDS: Cholecalciferol (VIT D3) 25 MCG TABLET (1,000 UNITS) PO (09:14)
[2023-04-13] MEDS: Pantoprazole Sodium 40 MG Tablet PO ×2 (09:14→21:18)
[2023-04-13] MEDS: ITRACONAZOLE 100 MG CAPSULE 200 MG PO ×2 (09:14→16:13)
[2023-04-13] MEDS: Multivitamin (Healthy Eyes) Capsule 2 CAP PO ×2 (09:15→16:12)
[2023-04-13] MEDS: Gabapentin 300 MG Capsule PO ×2 (09:15→21:18)
[2023-04-13] MEDS: Fluticasone 0.05% 1 SPRAY NASAL.SRY NASAL (09:15)
[2023-04-13] MEDS: Multivitamins,Therapeutic Tablet 1 TABLET PO (09:15)
[2023-04-13] MEDS: Tuberculin,Purif.prot.deriv. 50 TU/ML Vial 0.100000000000000006 ML ID (09:16)
[2023-04-13] MEDS: Menthol/Lanolin/Calamine/Znox 113 GM Tube 1 APPLIC TOPICAL ×2 (09:17→21:22)
--- NOTE | 2023-04-13 10:44 | CASEMGMT ---
Addendum entered by Yu Gomez 04/16/23 09:09: [facility] is able to accept pt, but currently has an open semi-private room. SW spoke with pt and pt agreeable with the plans to move to a private room. SW updated [facility]. Will await outcome from insurance update. Original Note: Social Work SW spoke with pt about insurance NRD 04/16 and requesting DC plans. Pt requesting referral to [facility] and aware it will be OOP cost. SW agreed. Sent referral to [facility] via [employer]. Will continue to follow. Yu Gomez, CAITIE MTZ
[2023-04-13 13:12] VITALS: PULSE 94; RESP 20
[2023-04-13 15:19] VITALS: BP 128/73; PULSE 103; RESP 20; TEMP 37; O2SAT 92
[2023-04-13 16:59] VITALS: PULSE 75; RESP 16; O2SAT 98
[2023-04-13 19:46] VITALS: PULSE 90; RESP 20
[2023-04-13] MEDS: guaiFENesin Dm 10 ML UDC PO (21:45)
[2023-04-14] MEDS: Doxycycline 100 MG CAPSULE PO ×2 (04:04→15:51)
[2023-04-14 07:10] VITALS: PULSE 82; RESP 19
[2023-04-14] MEDS: Budesonide Respules 0.5 MG/2 ML AMPUL.NEB. INHALATION ×2 (07:10→21:46)
[2023-04-14] MEDS: Ipratropium/Albuterol Sulfate 3 ML AMPUL.NEB INHALATION ×3 (07:10→19:46)
[2023-04-14] MEDS: Multivitamin (Healthy Eyes) Capsule 2 CAP PO ×2 (08:17→15:50)
[2023-04-14] MEDS: ITRACONAZOLE 100 MG CAPSULE 200 MG PO ×2 (08:17→15:50)
[2023-04-14] MEDS: Multivitamins,Therapeutic Tablet 1 TABLET PO (08:18)
[2023-04-14] MEDS: Potassium Chloride Oral Tablet 20 MEQ PO (08:18)
[2023-04-14] MEDS: Menthol/Lanolin/Calamine/Znox 113 GM Tube 1 APPLIC TOPICAL ×2 (11:23→21:37)
[2023-04-14] MEDS: Pantoprazole Sodium 40 MG Tablet PO ×2 (11:24→21:36)
[2023-04-14] MEDS: Cholecalciferol (VIT D3) 25 MCG TABLET (1,000 UNITS) PO (11:25)
[2023-04-14] MEDS: Citalopram 10 MG Tablet PO (11:27)
[2023-04-14] MEDS: Fluticasone 0.05% 1 SPRAY NASAL.SRY NASAL (11:27)
[2023-04-14] MEDS: Gabapentin 300 MG Capsule PO ×2 (11:29→21:36)
[2023-04-14 11:35] VITALS: PULSE 78; RESP 18; O2SAT 92
[2023-04-14] MEDS: Acetaminophen 500 MG Tablet 1000 MG PO (11:39)
[2023-04-14 13:39] VITALS: PULSE 78; RESP 20
[2023-04-14 14:32] VITALS: BP 111/69; PULSE 91; RESP 16; TEMP 36.8; O2SAT 94
[2023-04-14 19:46] VITALS: PULSE 87; RESP 18; O2SAT 98
[2023-04-14] MEDS: guaiFENesin Dm 10 ML UDC PO (23:24)
[2023-04-15] MEDS: Doxycycline 100 MG CAPSULE PO ×2 (04:09→16:51)
[2023-04-15 06:11] LABS: International Normalized Ratio 1.3; Prothrombin Time (Protime)PT. 15.9 SECONDS (11.7-14.9)
[2023-04-15 09:20] VITALS: PULSE 85; RESP 18
[2023-04-15] MEDS: Ipratropium/Albuterol Sulfate 3 ML AMPUL.NEB INHALATION ×3 (09:20→19:37)
[2023-04-15] MEDS: Budesonide Respules 0.5 MG/2 ML AMPUL.NEB. INHALATION ×2 (09:20→19:37)
[2023-04-15] MEDS: Gabapentin 300 MG Capsule PO ×2 (09:22→22:37)
[2023-04-15] MEDS: Multivitamin (Healthy Eyes) Capsule 2 CAP PO ×2 (09:22→16:50)
[2023-04-15] MEDS: ITRACONAZOLE 100 MG CAPSULE 200 MG PO ×2 (09:22→16:50)
[2023-04-15] MEDS: Multivitamins,Therapeutic Tablet 1 TABLET PO (09:23)
[2023-04-15] MEDS: Potassium Chloride Oral Tablet 20 MEQ PO (09:23)
[2023-04-15] MEDS: Menthol/Lanolin/Calamine/Znox 113 GM Tube 1 APPLIC TOPICAL ×2 (09:24→22:46)
[2023-04-15] MEDS: Citalopram 10 MG Tablet PO (09:24)
[2023-04-15] MEDS: Senna/Docusate Sodium 1 Tablet PO (09:25)
[2023-04-15] MEDS: Pantoprazole Sodium 40 MG Tablet PO ×2 (09:25→22:37)
[2023-04-15] MEDS: Cholecalciferol (VIT D3) 25 MCG TABLET (1,000 UNITS) PO (09:25)
[2023-04-15] MEDS: Fluticasone 0.05% 1 SPRAY NASAL.SRY NASAL (09:58)
[2023-04-15 14:36] VITALS: BP 106/61; PULSE 87; RESP 18; TEMP 36.9; O2SAT 97
[2023-04-15 15:35] VITALS: PULSE 86; RESP 18
[2023-04-15 19:37] VITALS: PULSE 88; RESP 18; O2SAT 98
--- NOTE | 2023-04-15 21:15 | NURSING ---
Telephone order received and read back per Dr. Irvin to dc DANIELLA wraps for compression to BLE.
[2023-04-15] MEDS: Phenol/Sodium Phenolate 180ML 3 SPRAY MUCOUS MEM (22:37)
[2023-04-15] MEDS: guaiFENesin Dm 10 ML UDC PO (22:37)
[2023-04-16] MEDS: Doxycycline 100 MG CAPSULE PO ×2 (03:51→16:27)
[2023-04-16 07:18] VITALS: PULSE 94; RESP 18; O2SAT 98
[2023-04-16] MEDS: Budesonide Respules 0.5 MG/2 ML AMPUL.NEB. INHALATION ×2 (07:18→19:34)
[2023-04-16] MEDS: Ipratropium/Albuterol Sulfate 3 ML AMPUL.NEB INHALATION ×3 (07:18→19:34)
[2023-04-16] MEDS: ITRACONAZOLE 100 MG CAPSULE 200 MG PO ×2 (08:21→16:27)
[2023-04-16] MEDS: Multivitamin (Healthy Eyes) Capsule 2 CAP PO ×2 (08:21→16:27)
[2023-04-16] MEDS: Potassium Chloride Oral Tablet 20 MEQ PO (08:21)
[2023-04-16] MEDS: Multivitamins,Therapeutic Tablet 1 TABLET PO (08:21)
[2023-04-16 09:10] LABS: International Normalized Ratio 1.2; Prothrombin Time (Protime)PT. 14.8 SECONDS (11.7-14.9)
[2023-04-16] MEDS: Gabapentin 300 MG Capsule PO ×2 (10:11→21:43)
[2023-04-16] MEDS: Fluticasone 0.05% 1 SPRAY NASAL.SRY NASAL (10:11)
[2023-04-16] MEDS: Pantoprazole Sodium 40 MG Tablet PO ×2 (10:11→21:43)
[2023-04-16] MEDS: Cholecalciferol (VIT D3) 25 MCG TABLET (1,000 UNITS) PO (10:11)
[2023-04-16] MEDS: Citalopram 10 MG Tablet PO (10:11)
[2023-04-16] MEDS: Menthol/Lanolin/Calamine/Znox 113 GM Tube 1 APPLIC TOPICAL ×2 (10:12→21:45)
[2023-04-16 13:19] VITALS: PULSE 93; RESP 18
[2023-04-16 13:36] VITALS: BP 115/79; PULSE 98; RESP 16; TEMP 37.3; O2SAT 99
[2023-04-16] MEDS: guaiFENesin Dm 10 ML UDC PO ×2 (14:23→21:44)
[2023-04-16 15:26] VITALS: PULSE 93; RESP 18
[2023-04-16] MEDS: Albuterol 2.5 MG/3 ML VIAL.NEB. INHALATION (15:26)
[2023-04-16 19:30] VITALS: PULSE 95; RESP 18; O2SAT 97
[2023-04-16] MEDS: Senna/Docusate Sodium 1 Tablet PO (21:43)
[2023-04-16] MEDS: Phenol/Sodium Phenolate 180ML 3 SPRAY MUCOUS MEM (21:44)
[2023-04-17] MEDS: Doxycycline 100 MG CAPSULE PO ×2 (04:25→16:26)
[2023-04-17] MEDS: guaiFENesin Dm 10 ML UDC PO (04:27)
[2023-04-17 06:15] LABS: International Normalized Ratio 1.4; Prothrombin Time (Protime)PT. 16.7 SECONDS (11.7-14.9)
[2023-04-17] MEDS: Budesonide Respules 0.5 MG/2 ML AMPUL.NEB. INHALATION ×2 (07:34→19:09)
[2023-04-17] MEDS: Ipratropium/Albuterol Sulfate 3 ML AMPUL.NEB INHALATION ×3 (07:34→19:09)
[2023-04-17 07:36] VITALS: PULSE 93; RESP 16; O2SAT 93
[2023-04-17 08:31] VITALS: BP 120/72; PULSE 108; RESP 18; TEMP 36.6; O2SAT 96
[2023-04-17] MEDS: Multivitamin (Healthy Eyes) Capsule 2 CAP PO ×2 (09:10→16:27)
[2023-04-17] MEDS: ITRACONAZOLE 100 MG CAPSULE 200 MG PO ×2 (09:11→16:26)
[2023-04-17] MEDS: Multivitamins,Therapeutic Tablet 1 TABLET PO (09:12)
[2023-04-17] MEDS: Potassium Chloride Oral Tablet 20 MEQ PO (09:12)
[2023-04-17] MEDS: Menthol/Lanolin/Calamine/Znox 113 GM Tube 1 APPLIC TOPICAL ×2 (09:12→21:13)
[2023-04-17] MEDS: Fluticasone 0.05% 1 SPRAY NASAL.SRY NASAL (09:13)
[2023-04-17] MEDS: Citalopram 10 MG Tablet PO (09:13)
[2023-04-17] MEDS: Pantoprazole Sodium 40 MG Tablet PO ×2 (09:14→21:10)
[2023-04-17] MEDS: Senna/Docusate Sodium 1 Tablet PO (09:15)
[2023-04-17] MEDS: Cholecalciferol (VIT D3) 25 MCG TABLET (1,000 UNITS) PO (09:15)
[2023-04-17] MEDS: Gabapentin 300 MG Capsule PO ×2 (09:21→21:10)
[2023-04-17 09:42] VITALS: BMI 21.6
[2023-04-17 10:00] VITALS: PULSE 84; RESP 18; O2SAT 96
--- NOTE | 2023-04-17 11:51 | MDS.RN ---
Information for the mds was obtained from review of the clinical record, interview of resident, staff, and direct observation of resident's care/
[2023-04-17 13:27] VITALS: PULSE 86; RESP 16
--- NOTE | 2023-04-17 14:22 | WOUNDNOTE ---
wound photo: right lower leg
--- NOTE | 2023-04-17 14:23 | WOUNDNOTE ---
wound photo: right lower leg
--- NOTE | 2023-04-17 14:23 | WOUNDNOTE ---
wound photo: right lateral heel
--- NOTE | 2023-04-17 14:24 | WOUNDNOTE ---
skin photo: left lower leg
[2023-04-17 19:09] VITALS: PULSE 90; RESP 18; O2SAT 94
[2023-04-17 20:43] VITALS: PULSE 95; RESP 16; O2SAT 97
[2023-04-18] MEDS: Doxycycline 100 MG CAPSULE PO ×2 (04:08→16:56)
[2023-04-18] MEDS: guaiFENesin Dm 10 ML UDC PO ×3 (04:08→22:18)
[2023-04-18] MEDS: Budesonide Respules 0.5 MG/2 ML AMPUL.NEB. INHALATION ×2 (07:50→19:05)
[2023-04-18] MEDS: Ipratropium/Albuterol Sulfate 3 ML AMPUL.NEB INHALATION ×3 (07:50→19:05)
[2023-04-18 09:05] VITALS: BP 120/72; PULSE 84; RESP 22; TEMP 36.5; O2SAT 97
[2023-04-18] MEDS: Multivitamin (Healthy Eyes) Capsule 2 CAP PO ×2 (09:22→17:36)
[2023-04-18] MEDS: Potassium Chloride Oral Tablet 20 MEQ PO (09:23)
[2023-04-18] MEDS: ITRACONAZOLE 100 MG CAPSULE 200 MG PO ×2 (09:23→17:36)
[2023-04-18] MEDS: Fluticasone 0.05% 1 SPRAY NASAL.SRY NASAL (09:24)
[2023-04-18] MEDS: Citalopram 10 MG Tablet PO (09:24)
[2023-04-18] MEDS: Menthol/Lanolin/Calamine/Znox 113 GM Tube 1 APPLIC TOPICAL ×2 (09:24→21:16)
[2023-04-18] MEDS: Multivitamins,Therapeutic Tablet 1 TABLET PO (09:24)
[2023-04-18] MEDS: Gabapentin 300 MG Capsule PO ×2 (09:25→21:13)
[2023-04-18] MEDS: Pantoprazole Sodium 40 MG Tablet PO ×2 (09:25→21:13)
[2023-04-18] MEDS: Senna/Docusate Sodium 1 Tablet PO (09:26)
[2023-04-18] MEDS: Cholecalciferol (VIT D3) 25 MCG TABLET (1,000 UNITS) PO (09:26)
[2023-04-18 12:29] VITALS: BP 127/73; PULSE 80; RESP 20; TEMP 36.6; O2SAT 96
[2023-04-18 14:00] VITALS: PULSE 92; RESP 18
[2023-04-18 14:20] VITALS: PULSE 84; RESP 18; O2SAT 97
--- NOTE | 2023-04-18 14:25 | NURSING ---
PT REFUSED TO LET THIS NURSE CHANGE HER LEG DRESSINGS. PT STATED I WANT ADIEL TO DO IT. ADIEL/RN,WOUND NURSE CHANGED PT DRESSINGS.
[2023-04-18 19:05] VITALS: PULSE 88; RESP 20
[2023-04-19] MEDS: Doxycycline 100 MG CAPSULE PO ×2 (06:41→16:27)
[2023-04-19 06:49] LABS: International Normalized Ratio 1.6; Prothrombin Time (Protime)PT. 19.1 SECONDS (11.7-14.9)
[2023-04-19] MEDS: ITRACONAZOLE 100 MG CAPSULE 200 MG PO ×2 (09:35→17:39)
[2023-04-19] MEDS: Potassium Chloride Oral Tablet 20 MEQ PO (09:35)
[2023-04-19] MEDS: Multivitamin (Healthy Eyes) Capsule 2 CAP PO ×2 (09:35→17:39)
[2023-04-19] MEDS: Senna/Docusate Sodium 1 Tablet PO (09:36)
[2023-04-19] MEDS: Fluticasone 0.05% 1 SPRAY NASAL.SRY NASAL (09:36)
[2023-04-19] MEDS: Multivitamins,Therapeutic Tablet 1 TABLET PO (09:36)
[2023-04-19] MEDS: Citalopram 10 MG Tablet PO (09:36)
[2023-04-19] MEDS: Cholecalciferol (VIT D3) 25 MCG TABLET (1,000 UNITS) PO (09:36)
[2023-04-19] MEDS: Pantoprazole Sodium 40 MG Tablet PO ×2 (09:36→21:07)
[2023-04-19] MEDS: Menthol/Lanolin/Calamine/Znox 113 GM Tube 1 APPLIC TOPICAL ×2 (09:37→21:08)
[2023-04-19] MEDS: Gabapentin 300 MG Capsule PO ×2 (09:39→21:07)
[2023-04-19 10:14] LABS: International Normalized Ratio 1.5; Prothrombin Time (Protime)PT. 18.1 SECONDS (11.7-14.9)
[2023-04-19 10:25] VITALS: PULSE 80; RESP 18
[2023-04-19] MEDS: Albuterol 2.5 MG/3 ML VIAL.NEB. INHALATION (10:25)
[2023-04-19] MEDS: guaiFENesin Dm 10 ML UDC PO ×2 (11:36→20:23)
[2023-04-19 14:05] VITALS: PULSE 84; RESP 18
[2023-04-19] MEDS: Ipratropium/Albuterol Sulfate 3 ML AMPUL.NEB INHALATION ×2 (14:05→19:14)
[2023-04-19 15:18] VITALS: BP 99/54; PULSE 94; RESP 14; TEMP 36.8; O2SAT 94
--- NOTE | 2023-04-19 16:27 | CASEMGMT ---
Social Work SW updated pt that insurance approved with NRD 04/22. Pt appreciative. SW updated [facility] via [facility]. Yu Gomez, LINUX SYSTEMS ENGINEER JURY CONSULTANT
[2023-04-19 17:41] VITALS: BP 127/47; PULSE 96
[2023-04-19 19:14] VITALS: PULSE 93; RESP 18
[2023-04-19] MEDS: Budesonide Respules 0.5 MG/2 ML AMPUL.NEB. INHALATION (19:14)
[2023-04-19 20:25] VITALS: PULSE 100; RESP 20; O2SAT 97
[2023-04-20] MEDS: Doxycycline 100 MG CAPSULE PO ×2 (03:59→16:57)
[2023-04-20 06:22] LABS: Anion Gap 6 (5-15); BUN 24 mg/dL (7-18); BUN/Creat Ratio 46.8 RATIO (10-20); Calcium,Total 8.2 mg/dL (8.5-10.1); Chloride 100 mmol/L (98-107); Creatinine, Serum 0.51 mg/dL (0.55-1.02); EST Glomerular Filtration Rate 124 mL/min (>60); Est Glom Filt Rate - Afr Amer 150 mL/min (>60); Estimated Creatinine Clearance 50.26 ml/min; Glucose 88 mg/dL (74-106); Potassium 3.4 mmol/L (3.5-5.1); Sodium Level 135 mmol/L (136-145)
[2023-04-20 08:30] VITALS: PULSE 88; RESP 20
[2023-04-20] MEDS: Ipratropium/Albuterol Sulfate 3 ML AMPUL.NEB INHALATION ×3 (08:30→19:34)
[2023-04-20] MEDS: Budesonide Respules 0.5 MG/2 ML AMPUL.NEB. INHALATION ×2 (08:30→19:34)
[2023-04-20] MEDS: Citalopram 10 MG Tablet PO (09:18)
[2023-04-20] MEDS: Fluticasone 0.05% 1 SPRAY NASAL.SRY NASAL (09:18)
[2023-04-20] MEDS: Multivitamins,Therapeutic Tablet 1 TABLET PO (09:19)
[2023-04-20] MEDS: Multivitamin (Healthy Eyes) Capsule 2 CAP PO ×2 (09:19→16:54)
[2023-04-20] MEDS: ITRACONAZOLE 100 MG CAPSULE 200 MG PO ×2 (09:19→16:54)
[2023-04-20] MEDS: Potassium Chloride Oral Tablet 20 MEQ PO ×2 (09:19→16:54)
[2023-04-20] MEDS: Pantoprazole Sodium 40 MG Tablet PO ×2 (09:20→21:42)
[2023-04-20] MEDS: Menthol/Lanolin/Calamine/Znox 113 GM Tube 1 APPLIC TOPICAL ×2 (09:20→21:43)
[2023-04-20] MEDS: Cholecalciferol (VIT D3) 25 MCG TABLET (1,000 UNITS) PO (09:20)
[2023-04-20] MEDS: Gabapentin 300 MG Capsule PO ×2 (09:20→21:42)
[2023-04-20 13:28] VITALS: PULSE 82; RESP 20
[2023-04-20 13:34] VITALS: BP 107/60; PULSE 89; RESP 16; TEMP 36.1; O2SAT 96
[2023-04-20 19:34] VITALS: PULSE 86; RESP 20
[2023-04-21 07:02] LABS: International Normalized Ratio 1.7; Prothrombin Time (Protime)PT. 20.1 SECONDS (11.7-14.9)
[2023-04-21] MEDS: Budesonide Respules 0.5 MG/2 ML AMPUL.NEB. INHALATION ×2 (07:06→20:20)
[2023-04-21] MEDS: Ipratropium/Albuterol Sulfate 3 ML AMPUL.NEB INHALATION ×3 (07:06→20:20)
[2023-04-21 07:08] VITALS: PULSE 86; RESP 20
[2023-04-21] MEDS: Multivitamin (Healthy Eyes) Capsule 2 CAP PO ×2 (09:39→16:47)
[2023-04-21] MEDS: ITRACONAZOLE 100 MG CAPSULE 200 MG PO ×2 (09:39→16:47)
[2023-04-21] MEDS: Multivitamins,Therapeutic Tablet 1 TABLET PO (09:40)
[2023-04-21] MEDS: Potassium Chloride Oral Tablet 20 MEQ PO ×2 (09:40→16:48)
[2023-04-21] MEDS: Citalopram 10 MG Tablet PO (09:41)
[2023-04-21] MEDS: Pantoprazole Sodium 40 MG Tablet PO ×2 (09:41→20:52)
[2023-04-21] MEDS: Cholecalciferol (VIT D3) 25 MCG TABLET (1,000 UNITS) PO (09:42)
[2023-04-21] MEDS: Fluticasone 0.05% 1 SPRAY NASAL.SRY NASAL (09:42)
[2023-04-21] MEDS: Menthol/Lanolin/Calamine/Znox 113 GM Tube 1 APPLIC TOPICAL ×2 (09:43→20:55)
[2023-04-21] MEDS: Gabapentin 300 MG Capsule PO ×2 (09:47→20:52)
[2023-04-21 13:40] VITALS: PULSE 90; RESP 16; O2SAT 98
[2023-04-21 14:22] VITALS: BP 101/60; PULSE 93; RESP 15; TEMP 36.6; O2SAT 98
[2023-04-21 20:20] VITALS: PULSE 94; RESP 16
[2023-04-21] MEDS: guaiFENesin Dm 10 ML UDC PO (22:05)
--- NOTE | 2023-04-22 01:02 | NURSING ---
This nurse asked patient at if she would allow the dressing to leg to be changed. Patient states that only the wound nurse should be touching it. This nurse told patient that we are allowed to change dressing. Patient continued to refuse, stating that the wound nurse told her that she didnt want it changed until Sunday.
[2023-04-22 07:03] LABS: Anion Gap 4 (5-15); BUN 25 mg/dL (7-18); BUN/Creat Ratio 51.8 RATIO (10-20); Calcium,Total 8.2 mg/dL (8.5-10.1); Chloride 102 mmol/L (98-107); Creatinine, Serum 0.48 mg/dL (0.55-1.02); EST Glomerular Filtration Rate 133 mL/min (>60); Est Glom Filt Rate - Afr Amer 161 mL/min (>60); Estimated Creatinine Clearance 50.26 ml/min; Glucose 79 mg/dL (74-106); Potassium 3.6 mmol/L (3.5-5.1); Sodium Level 133 mmol/L (136-145)
[2023-04-22] MEDS: Fluticasone 0.05% 1 SPRAY NASAL.SRY NASAL (08:45)
[2023-04-22] MEDS: Multivitamin (Healthy Eyes) Capsule 2 CAP PO ×2 (08:46→16:33)
[2023-04-22] MEDS: Menthol/Lanolin/Calamine/Znox 113 GM Tube 1 APPLIC TOPICAL ×2 (08:47→20:55)
[2023-04-22] MEDS: ITRACONAZOLE 100 MG CAPSULE 200 MG PO ×2 (08:47→16:33)
[2023-04-22] MEDS: Potassium Chloride Oral Tablet 20 MEQ PO ×2 (08:47→16:32)
[2023-04-22] MEDS: Multivitamins,Therapeutic Tablet 1 TABLET PO (08:47)
[2023-04-22] MEDS: Pantoprazole Sodium 40 MG Tablet PO ×2 (08:48→20:52)
[2023-04-22] MEDS: Citalopram 10 MG Tablet PO (08:48)
[2023-04-22] MEDS: Cholecalciferol (VIT D3) 25 MCG TABLET (1,000 UNITS) PO (08:49)
[2023-04-22] MEDS: Gabapentin 300 MG Capsule PO ×2 (08:53→20:52)
[2023-04-22 08:57] VITALS: BP 107/57; PULSE 94
[2023-04-22 08:58] VITALS: PULSE 86; RESP 18; O2SAT 100
[2023-04-22] MEDS: Budesonide Respules 0.5 MG/2 ML AMPUL.NEB. INHALATION (08:58)
[2023-04-22] MEDS: Ipratropium/Albuterol Sulfate 3 ML AMPUL.NEB INHALATION (08:58)
--- NOTE | 2023-04-22 10:49 | NURSING ---
ASKED PT IF THIS NURSE COULD DO HER DRESSINGS. PT STATED IT CAN BE DONE EVERY OTHER DAY AND ADIEL/WOUND NURSE DOES IT. THIS NURSE EXPLAINED TO PT THAT I HAVE DONE HER DRESSINGS WHEN SHE FIRST CAME AND TODAY IS EVERY OTHER DAY AND ADIELRN/WOUND NURSE HAS ORDERS IN THAT WE FOLLOW AND IS BEST TO CHANGE DRESSINGS AND LOOK AT HER WOUNDS TO MAKE SURE THERE ARE NO S/S OF INFECTION,SWELLING ETC. PT STATED OK THEN. DRESSING CHANGED TO RT FOOT/HEEL PER ORDER. NO S/S OF INFECTION OR SWELLING TO FOOT. DRYNESS AND REDNESS TO FOOT AND LOWER LEG. LOWER RT LEG PITTING +1. LT FOOT NO DRESSING,CHEMIST INTERN WASHED, DRIED,LOTION. NO S/S OF INFECTION OR SWELLING,SLIGHT REDNESS. PT TOLERATED WELL WITH NO COMPLAINTS.
[2023-04-22 13:50] VITALS: BP 108/65; PULSE 91; RESP 16; TEMP 36.7; O2SAT 98
[2023-04-23] MEDS: guaiFENesin Dm 10 ML UDC PO ×2 (00:16→16:18)
[2023-04-23 06:36] LABS: International Normalized Ratio 1.7; Prothrombin Time (Protime)PT. 19.9 SECONDS (11.7-14.9)
[2023-04-23 08:26] VITALS: BP 112/61; PULSE 88; RESP 16; O2SAT 99
[2023-04-23] MEDS: Fluticasone 0.05% 1 SPRAY NASAL.SRY NASAL (08:26)
[2023-04-23] MEDS: Citalopram 10 MG Tablet PO (08:27)
[2023-04-23] MEDS: Gabapentin 300 MG Capsule PO ×2 (08:27→20:57)
[2023-04-23] MEDS: Multivitamins,Therapeutic Tablet 1 TABLET PO (08:27)
[2023-04-23] MEDS: Pantoprazole Sodium 40 MG Tablet PO ×2 (08:28→20:57)
[2023-04-23] MEDS: Multivitamin (Healthy Eyes) Capsule 2 CAP PO ×2 (08:28→18:05)
[2023-04-23] MEDS: Potassium Chloride Oral Tablet 20 MEQ PO ×2 (08:28→18:05)
[2023-04-23] MEDS: Cholecalciferol (VIT D3) 25 MCG TABLET (1,000 UNITS) PO (08:28)
[2023-04-23] MEDS: ITRACONAZOLE 100 MG CAPSULE 200 MG PO ×2 (08:28→18:04)
[2023-04-23] MEDS: Menthol/Lanolin/Calamine/Znox 113 GM Tube 1 APPLIC TOPICAL ×2 (08:32→20:57)
[2023-04-23 12:53] VITALS: PULSE 92; RESP 18
[2023-04-23] MEDS: Ipratropium/Albuterol Sulfate 3 ML AMPUL.NEB INHALATION ×2 (12:53→19:05)
--- NOTE | 2023-04-23 13:57 | WOUNDNOTE ---
wound photo: right heel
[2023-04-23 14:16] VITALS: BP 107/63; PULSE 98; RESP 18; TEMP 36.8; O2SAT 95
[2023-04-23] MEDS: Warfarin 0.5 MG Tablet PO (18:04)
--- NOTE | 2023-04-23 18:09 | NURSING ---
Pt's INR today 1.7. Dr. Irvin entered order to increase daily warfarin to 6.5mg and recheck on . Wound nurse here today and updated wound care dressing orders. Updated pt and NADYA Abbtot; in agreement with plan of care.
[2023-04-23 19:05] VITALS: PULSE 98; RESP 24
[2023-04-23] MEDS: Budesonide Respules 0.5 MG/2 ML AMPUL.NEB. INHALATION (19:05)
[2023-04-23 21:00] VITALS: PULSE 94; RESP 18; O2SAT 97
[2023-04-24] MEDS: Acetaminophen 500 MG Tablet 1000 MG PO (00:25)
[2023-04-24] MEDS: Gabapentin 300 MG Capsule PO ×2 (08:51→21:46)
[2023-04-24] MEDS: Pantoprazole Sodium 40 MG Tablet PO ×2 (08:52→21:46)
[2023-04-24] MEDS: Cholecalciferol (VIT D3) 25 MCG TABLET (1,000 UNITS) PO (08:52)
[2023-04-24] MEDS: Multivitamin (Healthy Eyes) Capsule 2 CAP PO ×2 (08:52→18:39)
[2023-04-24] MEDS: Potassium Chloride Oral Tablet 20 MEQ PO ×2 (08:52→18:42)
[2023-04-24] MEDS: Citalopram 10 MG Tablet PO (08:52)
[2023-04-24] MEDS: Fluticasone 0.05% 1 SPRAY NASAL.SRY NASAL (08:52)
[2023-04-24] MEDS: Multivitamins,Therapeutic Tablet 1 TABLET PO (08:52)
[2023-04-24] MEDS: ITRACONAZOLE 100 MG CAPSULE 200 MG PO ×2 (08:52→18:39)
[2023-04-24 10:00] VITALS: RESP 16
[2023-04-24 12:11] VITALS: BMI 21.2
[2023-04-24] MEDS: Ipratropium/Albuterol Sulfate 3 ML AMPUL.NEB INHALATION ×2 (14:24→18:56)
[2023-04-24 14:25] VITALS: PULSE 82; RESP 17
[2023-04-24 15:37] VITALS: BP 102/60; PULSE 87; RESP 16; TEMP 36.6; O2SAT 97
[2023-04-24] MEDS: Warfarin 0.5 MG Tablet PO (18:39)
[2023-04-24 18:56] VITALS: PULSE 92; RESP 20
[2023-04-24] MEDS: Budesonide Respules 0.5 MG/2 ML AMPUL.NEB. INHALATION (18:56)
[2023-04-24] MEDS: Menthol/Lanolin/Calamine/Znox 113 GM Tube 1 APPLIC TOPICAL (21:47)
[2023-04-25] MEDS: Budesonide Respules 0.5 MG/2 ML AMPUL.NEB. INHALATION ×2 (06:42→18:43)
[2023-04-25] MEDS: Ipratropium/Albuterol Sulfate 3 ML AMPUL.NEB INHALATION ×3 (06:42→18:43)
[2023-04-25 07:03] VITALS: PULSE 88; RESP 19
[2023-04-25] MEDS: Fluticasone 0.05% 1 SPRAY NASAL.SRY NASAL (08:34)
[2023-04-25] MEDS: Citalopram 10 MG Tablet PO (08:35)
[2023-04-25] MEDS: Gabapentin 300 MG Capsule PO ×2 (08:35→21:57)
[2023-04-25] MEDS: Multivitamin (Healthy Eyes) Capsule 2 CAP PO ×2 (08:35→17:29)
[2023-04-25] MEDS: Multivitamins,Therapeutic Tablet 1 TABLET PO (08:35)
[2023-04-25] MEDS: Pantoprazole Sodium 40 MG Tablet PO ×2 (08:36→21:57)
[2023-04-25] MEDS: Cholecalciferol (VIT D3) 25 MCG TABLET (1,000 UNITS) PO (08:36)
[2023-04-25] MEDS: Potassium Chloride Oral Tablet 20 MEQ PO ×2 (08:36→17:31)
[2023-04-25] MEDS: ITRACONAZOLE 100 MG CAPSULE 200 MG PO ×2 (08:36→17:29)
[2023-04-25 13:12] VITALS: PULSE 84; RESP 16
[2023-04-25] MEDS: guaiFENesin Dm 10 ML UDC PO (14:32)
[2023-04-25 15:18] VITALS: BP 101/63; PULSE 101; RESP 20; TEMP 36.9; O2SAT 96
[2023-04-25] MEDS: Warfarin 0.5 MG Tablet PO (17:30)
[2023-04-25 18:43] VITALS: PULSE 105; RESP 20
[2023-04-25] MEDS: Acetaminophen 500 MG Tablet 1000 MG PO (21:57)
[2023-04-25 22:04] VITALS: PULSE 101; RESP 16; O2SAT 98
[2023-04-26 06:16] LABS: International Normalized Ratio 1.8; Prothrombin Time (Protime)PT. 20.5 SECONDS (11.7-14.9)
[2023-04-26 07:20] VITALS: PULSE 99; RESP 19
[2023-04-26] MEDS: Budesonide Respules 0.5 MG/2 ML AMPUL.NEB. INHALATION ×2 (07:20→19:20)
[2023-04-26] MEDS: Ipratropium/Albuterol Sulfate 3 ML AMPUL.NEB INHALATION ×3 (07:20→19:20)
[2023-04-26 10:44] VITALS: BP 105/59; PULSE 102; RESP 16; O2SAT 97
[2023-04-26] MEDS: Multivitamin (Healthy Eyes) Capsule 2 CAP PO ×2 (10:45→16:44)
[2023-04-26] MEDS: Cholecalciferol (VIT D3) 25 MCG TABLET (1,000 UNITS) PO (10:45)
[2023-04-26] MEDS: Multivitamins,Therapeutic Tablet 1 TABLET PO (10:45)
[2023-04-26] MEDS: Citalopram 10 MG Tablet PO (10:45)
[2023-04-26] MEDS: Potassium Chloride Oral Tablet 20 MEQ PO ×2 (10:45→16:44)
[2023-04-26] MEDS: ITRACONAZOLE 100 MG CAPSULE 200 MG PO ×2 (10:45→16:43)
[2023-04-26] MEDS: Gabapentin 300 MG Capsule PO ×2 (10:46→21:05)
[2023-04-26] MEDS: Fluticasone 0.05% 1 SPRAY NASAL.SRY NASAL (10:46)
[2023-04-26] MEDS: Pantoprazole Sodium 40 MG Tablet PO ×2 (10:46→21:05)
[2023-04-26 13:30] VITALS: PULSE 81; RESP 19
[2023-04-26] MEDS: Acetaminophen 500 MG Tablet 1000 MG PO (16:42)
--- NOTE | 2023-04-26 18:55 | NURSING ---
Pt's INR 1.[address] Irvin increased warfarin to 7mg daily, recheck on 04/29.
[2023-04-26 19:20] VITALS: PULSE 88; RESP 18; O2SAT 99
[2023-04-26] MEDS: Menthol/Lanolin/Calamine/Znox 113 GM Tube 1 APPLIC TOPICAL (21:07)
[2023-04-27 06:52] LABS: Anion Gap 7 (5-15); BUN 28 mg/dL (7-18); BUN/Creat Ratio 54.9 RATIO (10-20); Calcium,Total 8.4 mg/dL (8.5-10.1); Chloride 101 mmol/L (98-107); Creatinine, Serum 0.51 mg/dL (0.55-1.02); EST Glomerular Filtration Rate 125 mL/min (>60); Est Glom Filt Rate - Afr Amer 151 mL/min (>60); Estimated Creatinine Clearance 50.26 ml/min; Glucose 82 mg/dL (74-106); Potassium 3.6 mmol/L (3.5-5.1); Sodium Level 136 mmol/L (136-145)
[2023-04-27 07:40] VITALS: PULSE 92; RESP 16; O2SAT 98
[2023-04-27] MEDS: Budesonide Respules 0.5 MG/2 ML AMPUL.NEB. INHALATION ×2 (07:40→19:35)
[2023-04-27] MEDS: Ipratropium/Albuterol Sulfate 3 ML AMPUL.NEB INHALATION ×3 (07:40→19:35)
[2023-04-27] MEDS: Fluticasone 0.05% 1 SPRAY NASAL.SRY NASAL (09:21)
[2023-04-27] MEDS: Multivitamin (Healthy Eyes) Capsule 2 CAP PO ×2 (09:22→17:26)
[2023-04-27] MEDS: Potassium Chloride Oral Tablet 20 MEQ PO ×2 (09:22→17:25)
[2023-04-27] MEDS: ITRACONAZOLE 100 MG CAPSULE 200 MG PO ×2 (09:22→17:25)
[2023-04-27] MEDS: Multivitamins,Therapeutic Tablet 1 TABLET PO (09:23)
[2023-04-27] MEDS: Cholecalciferol (VIT D3) 25 MCG TABLET (1,000 UNITS) PO (09:23)
[2023-04-27] MEDS: Citalopram 10 MG Tablet PO (09:23)
[2023-04-27] MEDS: Pantoprazole Sodium 40 MG Tablet PO ×2 (09:23→21:19)
[2023-04-27] MEDS: Gabapentin 300 MG Capsule PO ×2 (09:27→21:18)
[2023-04-27] MEDS: Acetaminophen 500 MG Tablet 1000 MG PO ×2 (09:27→21:22)
[2023-04-27 09:31] VITALS: BP 107/63; PULSE 100
--- NOTE | 2023-04-27 09:45 | CASEMGMT ---
Addendum entered by Yu Gomez 04/27/23 15:10: Friend can transport. PASRR completed. DC paperwork sent to [facility]. Original Note: Social Work Insurance issued LCD 04/28, DC 04/29. SW spoke with pt and pt agreeable. Pt confirmed DC plan is to DC to [facility], intermediate, private pay with part B therapies. Pt to contact friend for transport, but SW offered to coordinate if friend cannot. SW updated [facility] via [employer]. PASRR to be completed. Plan: DC 04/29 to [facility], intermediate, private pay, part B therapies Yu Gomez, CAITIE MILK PICKUP DRIVER
[2023-04-27 11:00] VITALS: PULSE 94; RESP 18; O2SAT 97
[2023-04-27 13:14] VITALS: PULSE 90; RESP 16
--- NOTE | 2023-04-27 13:16 | DS.PCM_ITS ---
Providers Date of Admission: 04/05/23 Primary Care Physician: Dr. Deyanira Pak MD Consultations 04/10/23 10:44 Consult: Onc/Wound/skilled helper Routine Comment: Reason for Consult:: bilateral lowers legs/feet Reason For Visit: LOWER EXTREMITY CELLULITIS Diagnosis Discharge Diagnosis (1) Debility: Status: Acute Code(s): R53.81 - Other malaise (2) Cellulitis of right lower extremity: Status: Acute Code(s): L03.115 - Cellulitis of right lower limb (3) Failure to thrive: Status: Acute (4) Acute anemia: Status: Acute Code(s): D64.9 - Anemia, unspecified (5) Gastric ulcer: Status: Acute Code(s): K25.9 - Gastric ulcer, unspecified as acute or chronic, without hemorrhage or perforation (6) Duodenitis: Status: Acute Code(s): K29.80 - Duodenitis without bleeding (7) Thrombocytopenia: Status: Acute Code(s): D69.6 - Thrombocytopenia, unspecified (8) Edema: Status: Acute Code(s): R60.9 - Edema, unspecified (9) COPD (chronic obstructive pulmonary disease): Status: Chronic Code(s): J44.9 - Chronic obstructive pulmonary disease, unspecified (10) Histoplasmosis: Status: Acute Code(s): B39.9 - Histoplasmosis, unspecified (11) History of blood clots: Status: Acute Code(s): Z86.718 - Personal history of other venous thrombosis and embolism (12) Rheumatoid arthritis: Status: Acute Code(s): M06.9 - Rheumatoid arthritis, unspecified Plan 77 year old female with below past medical history hospitalized for right lower extremity cellulitis, failure to thrive, complicated by acute anemia 2/2 gastric ulcers, duodenitis, thrombocytopenia, admitted to TCU with debility, here for rehabilitation, strengthening, prior to discharge home alone. * Debility - PT/OT. * Pain - Tylenol 1000mg q6 prn pain (1-3), Oxycodone 5mg q4 prn pain (4-10). * Bowel - senna/colace 1 tablet bid, Magnesium citrate 300ml daily prn. * Adult immunization - Administer pneumonia vaccine, covid vaccine, flu vaccine as appropriate. * DVT prophylaxis - Hold, thrombocytopenia. * COPD - Budesonide 0.5mg q12, Duoneb 3ml q6wa, Albuterol 2.5mg q2 prn. * Vitamin D deficiency - D3 25mcg daily. * Allergic rhinitis - Flonase 1 spray nasal daily. * Neuropathic pain - Gabapentin 300mg q12h. * Histoplasmosis - Itraconazole 200mg bidcm. * Skin irritation - Calmoseptine topical bid. * Macular degeneration - Healthy Eyes 2 caps bidcm. * Nutrition - MVI 1 daily. * Gastric ulcer/duodenitis - Pantoprazole 40mg bid. * History of blood clots - restart coumadin when platelets > 50,000. Medications at Discharge Home Medications fluticasone propionate 50 mcg/actuation nasal spray,suspension 1 spray intranasal DAILY allergies 03/19/23 multivitamin (Daily Multi-Vitamin tablet) 1 tab PO DAILY supplement 03/19/23 vitamins A,C,E-hzmp-gceljv 2,148 mcg-113 mg-45 mg-17.4 mg tablet (PreserVision AREDS) 2 tab PO BID eye health 03/19/23 cholecalciferol (vitamin D3) 25 mcg (1,000 unit) capsule 25 mcg PO DAILY health maintenance 03/26/23 albuterol sulfate 2.5 mg/3 mL (0.083 %) solution for nebulization 2.5 mg (3 mL) inhalation Q2H PRN PRN SOB/Wheezing #0 mL 04/05/23 budesonide 0.5 mg/2 mL suspension for nebulization 0.5 mg (2 mL) inhalation Q12H.RT breathing #0 mL 04/05/23 gabapentin 300 mg capsule 300 mg PO Q12 nerve pain #0 caps 04/05/23 ipratropium 0.5 mg-albuterol 3 mg (2.5 mg base)/3 mL nebulization soln 3 ml inhalation Q6HWA.RT breathing #0 mL 04/05/23 itraconazole 100 mg capsule 200 mg (2 x 100 mg) PO BIDCM histoplasmosis #0 caps 04/05/23 pantoprazole 40 mg tablet,delayed release 40 mg PO BID GERD #0 tabs 04/05/23 acetaminophen 500 mg tablet 1,000 mg (2 x 500 mg) PO Q6H PRN PRN Pain Score 1-10 #0 tabs 04/27/23 citalopram 10 mg tablet 10 mg PO DAILY #0 tabs 04/27/23 dextromethorphan-guaifenesin 10 mg-100 mg/5 mL oral syrup 10 ml PO Q6H PRN PRN C OUGH #0 mL 04/27/23 menthol 0.44 %-zinc oxide 20.6 % topical ointment (Calmoseptine) 1 applic topic al BID #0 grams 04/27/23 potassium chloride 20 mEq tablet,extended release(part/cryst) 20 meq PO BIDCM #0 tabs 04/27/23 warfarin 1 mg tablet (Jantoven) 1 mg PO DINNER #0 tabs 04/27/23 warfarin 6 mg tablet (Jantoven) 6 mg PO DINNER #0 tabs 04/27/23 Hospital Course Operations None Procedures None Summary of Care Provided Minutes Spent on Discharge: 35 Hospital Course: 77 year old female with below past medical history hospitalized for right lower extremity cellulitis, failure to thrive, complicated by acute anemia 2/2 gastric ulcers, duodenitis, thrombocytopenia, admitted to TCU with debility, here for rehabilitation, strengthening, prior to discharge home alone. 04/11/2023 Doppler right lower extremity showed acute DVT right lower extremity. Discharge 04/30/2023 to [facility], private pay, part B therapies. Physical Exam Const alert General Appearance: cooperative HEENT normocephalic Eyes PERRL and EOMs intact bilaterally Neck supple, no JVD and no carotid bruits Resp normal respiratory effort, normal air movement and clear to auscultation bilaterally Cardio regular rate and regular rhythm GI normal to inspection, nondistended, normoactive bowel sounds, non-tender and non-distended Extremity normal capillary refill General Extremity: Negative for edema Skin no rashes or lesions noted General Skin Exam: no breakdown Psych affect normal Appearance: appropriate Weight / BMI Weight Weight: 54.34 kg Body Mass Index (BMI) 21.2 ABG / Lab / Microbiology Data 04/12/23 05:46 04/27/23 05:08 Laboratory: Laboratory Results - last 24 hr 04/27/23 05:08: Sodium 136, Potassium 3.6, Chloride 101, Carbon Dioxide 28.0, Anion Gap 7, BUN 28 H, Creatinine 0.51 L, Estim Creat Clear Calc 50.26, Est GFR (MDRD) Af Amer 151, Est GFR (MDRD) Non-Af 125, BUN/Creatinine Ratio 54.9 H, Glucose 82, Calcium 8.4 L Microbiology: Microbiology 04/13/23 11:05 Mucosa - Nasopharyngeal Respiratory Panel (PCR) - Final 04/13/23 10:37 Nasal Secretion SARS-CoV-2 Antigen (Rapid) - Final 04/06/23 09:00 Urine, Catheterized Urine Culture - Final Culture exhibits no growth. D/C Instructions Discharge Diet: No restrictions Discharge Activity: Return to Normal Activity, May Shower and Use Walker Weight Bearing Status: Weight bearing as tolerated Call your doctor if you observe: Fever of 101 or Higher, Inability to urinate, Inability to have a bowel movement, Shortness of breath, Dizziness, Fainting spells, Swelling in the ankles, Chest pain and Uncontrolled pain Additional Instructions: Discharge 04/30/2023 to [facility], private pay, part B therapies. Meaningful Use Info Meaningful Use Diagnoses (Choose all that apply): None applicable Discharge Plan Admission Admit Date/Time: 04/05/23 13:33 Primary Reason for Your Visit: Debility. Attending Provider: Edinson Irvin Chi Primary Care Provider: Deyanira Pak Instructions Additional Instructions / Restrictions: Discharge 04/30/2023 to [facility], private pay, part B therapies. Discharge Orders/Prescriptions Prescriptions: New citalopram 10 mg Tablet 10 mg PO DAILY Qty: 0 0RF dextromethorphan-guaifenesin 10-100 mg/5 mL Syrup 10 ml PO Q6H PRN PRN (Reason: COUGH) Qty: 0 0RF acetaminophen 500 mg Tablet 1,000 mg PO Q6H PRN PRN (Reason: Pain Score 1-10) Qty: 0 0RF warfarin [Jantoven] 6 mg Tablet 6 mg PO DINNER Qty: 0 0RF potassium chloride 20 mEq Tablet,Er Particles/Crystals 20 meq PO BIDCM Qty: 0 0RF warfarin [Jantoven] 1 mg Tablet 1 mg PO DINNER Qty: 0 0RF menthol-zinc oxide [Calmoseptine] 0.44-20.6 % Ointment 1 applic topical BID Qty: 0 0RF Protocol: *Topical Application Instructions APPLICATION INSTRUCTIONS: mackenzie buttucks and coccy x Continued fluticasone propionate 50 mcg/actuation spray,suspension 1 spray INTRANASAL DAILY PreserVision AREDS 2,148 mcg-113 mg-45 mg-17.4mg tablet 2 tab PO BID Rx Instructions: administer with AM and PM meals multivitamin [Daily Multi-Vitamin] Tablet 1 tab PO DAILY ipratropium-albuterol 0.5 mg-3 mg(2.5 mg base)/3 mL Solution For Nebulization 3 ml inhalation Q6HWA.RT Qty: 0 0RF albuterol sulfate 2.5 mg /3 mL (0.083 %) Solution For Nebulization 2.5 mg inhalation Q2H PRN PRN (Reason: SOB/Wheezing) Qty: 0 0RF gabapentin 300 mg Capsule 300 mg PO Q12 Qty: 0 0RF budesonide 0.5 mg/2 mL Suspension For Nebulization 0.5 mg inhalation Q12H.RT Qty: 0 0RF itraconazole 100 mg Capsule 200 mg PO BIDCM Qty: 0 0RF pantoprazole 40 mg Tablet,Delayed Release (Dr/Ec) 40 mg PO BID Qty: 0 0RF cholecalciferol (vitamin D3) 25 mcg (1,000 unit) capsule 25 mcg PO DAILY Discontinued albuterol sulfate 90 mcg/actuation HFA aerosol inhaler 2 puff INHALATION Q4H PRN (Reason: shortness of breath or wheezing) budesonide-formoterol [Symbicort] 160-4.5 mcg/actuation HFA aerosol inhaler 2 puff INHALATION Q12H Spiriva Respimat 2.5 mcg/actuation mist 2 puff INHALATION Q24H acetaminophen 325 mg Tablet 650 mg PO Q6H PRN PRN (Reason: Pain 1-10 Or Fever >100.7) Qty: 0 0RF fluticasone propionate 50 mcg/actuation [place],Suspension 1 spray NASAL DAILY Qty: 0 0RF oxycodone 5 mg Tablet 5 mg PO Q4H PRN PRN (Reason: Pain Score 4-10) 2 Days Qty: 6 0RF sennosides-docusate sodium [Stool Softener-Stimulant Laxat] 8.6-50 mg Tablet 2 tab PO BID PRN PRN (Reason: Constipation) Qty: 0 0RF itraconazole 10 mg/mL solution 100 mg PO Q8H Rx Instructions: administer on an empty stomach Ocutabs Tablet 2 tab PO DAILY Referrals / Follow Up: Deyanira Pak MD [Primary Care Provider] - Disposition Disposition (needs filled in before D/C Order can be placed): NonSkilled NH/Intermed Care
--- NOTE | 2023-04-27 13:23 | TREXTCAR_ITS ---
Diet Diet Order/Speech Therapy: 04/05/23 14:07 Diet: Regular - General Type of Dietary Supplement:: Sharad L&D Is pt able to select menu?: Yes Diet Comments: Distant Supervision, SMALL SIPS, Cough &re-swallow w/ sips; see tally notes Routine Orders/Code Status Routine Lab Work: INR (3 times per week until INR therapeutic.) Code Status: Full Code Wound(s) LT ARM: Wound Type: Abrasion BRUNO LEGS: Wound Type: Redness/healing blisters Dressing Change: Dry Sterile Dressing BRUNO FEET: Wound Type: Redness/healing blisters Dressing Change: Dry Sterile Dressing BRUNO BUTTUCKS/COCCYX: Wound Type: Pressure Injury Dressing Change: Calmoseptine LT FOOT/AREA 1: Wound Type: Blistered area Dressing Change: ADAPTIC,ABD,GAZE LT FOOT/AREA 2: Wound Type: Blistered area Dressing Change: ADAPTIC,ABD,GAZE RT FOOT: Wound Type: Healing blisters Dressing Change: ADAPTIC,ABD,GAZE OUTTER LOWER LEG: Wound Type: Healing blister Dressing Change: ADAPTIC,ABD,GAZE INNER LOWER LEG: Wound Type: Healing blister Dressing Change: ADAPTIC,ABD,GAZE RT ANKLE: Wound Type: Blistered area Dressing Change: Dry Sterile Dressing right soto: Wound Type: Scabbed area Dressing Change: dry dressing right dorsal foot: Wound Type: scabbed over blister Dressing Change: Adaptic right lateral heel: Wound Type: Pressure Injury Dressing Change: dry well padded dressing left dorsal foot: Wound Type: cluster of blisters Dressing Change: Adaptic Therapies Weight Bearing: Weight bearing as tolerated Extremity Affected:: Bilateral Lower Physical Therapy: Eval and Treat Occupational Therapy: Eval and Treat Problem/Diagnosis (1) Debility: Status: Acute Code(s): R53.81 - Other malaise (2) Cellulitis of right lower extremity: Status: Acute Code(s): L03.115 - Cellulitis of right lower limb (3) Failure to thrive: Status: Acute (4) Acute anemia: Status: Acute Code(s): D64.9 - Anemia, unspecified (5) Gastric ulcer: Status: Acute Code(s): K25.9 - Gastric ulcer, unspecified as acute or chronic, without hemorrhage or perforation (6) Duodenitis: Status: Acute Code(s): K29.80 - Duodenitis without bleeding (7) Thrombocytopenia: Status: Acute Code(s): D69.6 - Thrombocytopenia, unspecified (8) Edema: Status: Acute Code(s): R60.9 - Edema, unspecified (9) COPD (chronic obstructive pulmonary disease): Status: Chronic Code(s): J44.9 - Chronic obstructive pulmonary disease, unspecified (10) Histoplasmosis: Status: Acute Code(s): B39.9 - Histoplasmosis, unspecified (11) History of blood clots: Status: Acute Code(s): Z86.718 - Personal history of other venous thrombosis and embolism (12) Rheumatoid arthritis: Status: Acute Code(s): M06.9 - Rheumatoid arthritis, unspecified Plan 77 year old female with below past medical history hospitalized for right lower extremity cellulitis, failure to thrive, complicated by acute anemia 2/2 gastric ulcers, duodenitis, thrombocytopenia, admitted to TCU with debility, here for rehabilitation, strengthening, prior to discharge home alone. * Debility - PT/OT. * Pain - Tylenol 1000mg q6 prn pain (1-3), Oxycodone 5mg q4 prn pain (4-10). * Bowel - senna/colace 1 tablet bid, Magnesium citrate 300ml daily prn. * Adult immunization - Administer pneumonia vaccine, covid vaccine, flu vaccine as appropriate. * DVT prophylaxis - Hold, thrombocytopenia. * COPD - Budesonide 0.5mg q12, Duoneb 3ml q6wa, Albuterol 2.5mg q2 prn. * Vitamin D deficiency - D3 25mcg daily. * Allergic rhinitis - Flonase 1 spray nasal daily. * Neuropathic pain - Gabapentin 300mg q12h. * Histoplasmosis - Itraconazole 200mg bidcm. * Skin irritation - Calmoseptine topical bid. * Macular degeneration - Healthy Eyes 2 caps bidcm. * Nutrition - MVI 1 daily. * Gastric ulcer/duodenitis - Pantoprazole 40mg bid. * History of blood clots - restart coumadin when platelets > 50,000. Allergies/Procedures Done in Hospital Allergies Penicillins Allergy (Severe, Verified 03/28/23 16:32) Anaphylaxis Procedures: None Type of Care/Length of Stay Estimated LOS: Convalescent Care Less Than 30 days Type of Care Needed: Intermediate Rehab Potential: Good Prognosis: Good Additional Orders/Day of Discharge Additional Orders: part B therapies Day of Discharge: 04/30/23 Dietary and Speech Recommendations Dietitian Recommendations/Changes: Will continue liberal regular diet Continue to provide sharad bid w/ lunch and dinner Continue to provide black, decaf tea and low fat milk w/ all meals Continue to cut food into small bite size pieces at meals d/t easy fatigue when eating Encourage res to eat snacks between meals - no additional wt loss desired Continue to encourage res to consider ONS for increased nutrition if consume to help prevent additional wt loss Follow Up Care Please follow up with your Primary Care Physician in: Pasha Mcmillan MD Discharge Plan Admission Admit Date/Time: 04/05/23 13:33 Primary Reason for Your Visit: Debility. Attending Provider: Edinson Irvin Chi Primary Care Provider: Deyanira Pak Instructions Additional Instructions / Restrictions: Discharge 04/30/2023 to [facility], private pay, part B therapies. Discharge Orders/Prescriptions Prescriptions: New citalopram 10 mg Tablet 10 mg PO DAILY Qty: 0 0RF dextromethorphan-guaifenesin 10-100 mg/5 mL Syrup 10 ml PO Q6H PRN PRN (Reason: COUGH) Qty: 0 0RF acetaminophen 500 mg Tablet 1,000 mg PO Q6H PRN PRN (Reason: Pain Score 1-10) Qty: 0 0RF warfarin [Jantoven] 6 mg Tablet 6 mg PO DINNER Qty: 0 0RF potassium chloride 20 mEq Tablet,Er Particles/Crystals 20 meq PO BIDCM Qty: 0 0RF warfarin [Jantoven] 1 mg Tablet 1 mg PO DINNER Qty: 0 0RF menthol-zinc oxide [Calmoseptine] 0.44-20.6 % Ointment 1 applic topical BID Qty: 0 0RF Protocol: *Topical Application Instructions APPLICATION INSTRUCTIONS: bruno buttucks and coccyx Continued fluticasone propionate 50 mcg/actuation spray,suspension 1 spray INTRANASAL DAILY PreserVision AREDS 2,148 mcg-113 mg-45 mg-17.4mg tablet 2 tab PO BID Rx Instructions: administer with AM and PM meals multivitamin [Daily Multi-Vitamin] Tablet 1 tab PO DAILY ipratropium-albuterol 0.5 mg-3 mg(2.5 mg base)/3 mL Solution For Nebulization 3 ml inhalation Q6HWA.RT Qty: 0 0RF albuterol sulfate 2.5 mg /3 mL (0.083 %) Solution For Nebulization 2.5 mg inhalation Q2H PRN PRN (Reason: SOB/Wheezing) Qty: 0 0RF gabapentin 300 mg Capsule 300 mg PO Q12 Qty: 0 0RF budesonide 0.5 mg/2 mL Suspension For Nebulization 0.5 mg inhalation Q12H.RT Qty: 0 0RF itraconazole 100 mg Capsule 200 mg PO BIDCM Qty: 0 0RF pantoprazole 40 mg Tablet,Delayed Release (Dr/Ec) 40 mg PO BID Qty: 0 0RF cholecalciferol (vitamin D3) 25 mcg (1,000 unit) capsule 25 mcg PO DAILY Discontinued albuterol sulfate 90 mcg/actuation HFA aerosol inhaler 2 puff INHALATION Q4H PRN (Reason: shortness of breath or wheezing) budesonide-formoterol [Symbicort] 160-4.5 mcg/actuation HFA aerosol inhaler 2 puff INHALATION Q12H Spiriva Respimat 2.5 mcg/actuation mist 2 puff INHALATION Q24H acetaminophen 325 mg Tablet 650 mg PO Q6H PRN PRN (Reason: Pain 1-10 Or Fever >100.7) Qty: 0 0RF fluticasone propionate 50 mcg/actuation [place],Suspension 1 spray NASAL DAILY Qty: 0 0RF oxycodone 5 mg Tablet 5 mg PO Q4H PRN PRN (Reason: Pain Score 4-10) 2 Days Qty: 6 0RF sennosides-docusate sodium [Stool Softener-Stimulant Laxat] 8.6-50 mg Tablet 2 tab PO BID PRN PRN (Reason: Constipation) Qty: 0 0RF itraconazole 10 mg/mL solution 100 mg PO Q8H Rx Instructions: administer on an empty stomach Ocutabs Tablet 2 tab PO DAILY Referrals / Follow Up: Deyanira Pak MD [Primary Care Provider] - Disposition Disposition (needs filled in before D/C Order can be placed): NonSkilled NH/Intermed Care
[2023-04-27 15:02] VITALS: BP 105/59; PULSE 100; RESP 18; TEMP 35.9; O2SAT 95
--- NOTE | 2023-04-27 15:13 | NURSING ---
PT CONTINUES TO REFUSE JERRELL TO INNER BUTTOCKS. RED AND PRESSURE AREAS STARTING,PT IS AWARE. EDUCATED PT ON PREVENTIVE MEASURES. PT STILL STATED NO,GETS ON MY CLOTHES. STATED TO PT WE CAN PUT A PAD IN HER UNDERWEAR. PT STILL STATED NO,I WILL BE FINE. RN AWARE
[2023-04-27 19:35] VITALS: PULSE 98; RESP 16; O2SAT 100
[2023-04-28] MEDS: Multivitamin (Healthy Eyes) Capsule 2 CAP PO ×2 (09:13→17:34)
[2023-04-28] MEDS: Potassium Chloride Oral Tablet 20 MEQ PO ×2 (09:14→17:36)
[2023-04-28] MEDS: ITRACONAZOLE 100 MG CAPSULE 200 MG PO ×2 (09:14→17:33)
[2023-04-28] MEDS: Citalopram 10 MG Tablet PO (09:15)
[2023-04-28] MEDS: Multivitamins,Therapeutic Tablet 1 TABLET PO (09:15)
[2023-04-28] MEDS: Fluticasone 0.05% 1 SPRAY NASAL.SRY NASAL (09:15)
[2023-04-28] MEDS: Pantoprazole Sodium 40 MG Tablet PO ×2 (09:16→21:16)
[2023-04-28] MEDS: Cholecalciferol (VIT D3) 25 MCG TABLET (1,000 UNITS) PO (09:16)
[2023-04-28] MEDS: Gabapentin 300 MG Capsule PO ×2 (09:16→21:16)
[2023-04-28] MEDS: Acetaminophen 500 MG Tablet 1000 MG PO (09:26)
[2023-04-28 13:32] VITALS: PULSE 89; RESP 21
[2023-04-28] MEDS: Ipratropium/Albuterol Sulfate 3 ML AMPUL.NEB INHALATION ×2 (13:32→19:49)
[2023-04-28 13:57] VITALS: BP 100/59; PULSE 97; RESP 22; TEMP 36.9; O2SAT 96
[2023-04-28 19:50] VITALS: RESP 18
[2023-04-28] MEDS: Budesonide Respules 0.5 MG/2 ML AMPUL.NEB. INHALATION (19:50)
[2023-04-29] MEDS: Ipratropium/Albuterol Sulfate 3 ML AMPUL.NEB INHALATION ×2 (07:38→13:31)
[2023-04-29 07:46] VITALS: PULSE 82; RESP 19
[2023-04-29 09:26] VITALS: BP 110/65; PULSE 97; RESP 17; TEMP 36.7; O2SAT 97
[2023-04-29] MEDS: Multivitamin (Healthy Eyes) Capsule 2 CAP PO ×2 (09:28→17:44)
[2023-04-29] MEDS: ITRACONAZOLE 100 MG CAPSULE 200 MG PO ×2 (09:29→17:45)
[2023-04-29] MEDS: Potassium Chloride Oral Tablet 20 MEQ PO ×2 (09:29→17:45)
[2023-04-29] MEDS: Fluticasone 0.05% 1 SPRAY NASAL.SRY NASAL (09:30)
[2023-04-29] MEDS: Multivitamins,Therapeutic Tablet 1 TABLET PO (09:30)
[2023-04-29] MEDS: Citalopram 10 MG Tablet PO (09:30)
[2023-04-29] MEDS: Pantoprazole Sodium 40 MG Tablet PO ×2 (09:31→22:01)
[2023-04-29] MEDS: Cholecalciferol (VIT D3) 25 MCG TABLET (1,000 UNITS) PO (09:31)
[2023-04-29] MEDS: Gabapentin 300 MG Capsule PO ×2 (09:35→22:01)
[2023-04-29 13:31] VITALS: PULSE 83; RESP 18
[2023-04-29] MEDS: Acetaminophen 500 MG Tablet 1000 MG PO (16:28)
[2023-04-29] MEDS: oxyCODONE 5 MG Tablet PO (16:28)
[2023-04-29 19:52] VITALS: PULSE 90; RESP 16; O2SAT 98
[2023-04-29 23:42] VITALS: PULSE 80; RESP 18
[2023-04-29] MEDS: Albuterol 2.5 MG/3 ML VIAL.NEB. INHALATION (23:42)
[2023-04-30 05:58] LABS: International Normalized Ratio 2.2; Prothrombin Time (Protime)PT. 24.5 SECONDS (11.7-14.9)
[2023-04-30 06:35] VITALS: PULSE 83; RESP 16; O2SAT 97
[2023-04-30 08:05] VITALS: PULSE 109; RESP 16
[2023-04-30] MEDS: Ipratropium/Albuterol Sulfate 3 ML AMPUL.NEB INHALATION (08:05)
[2023-04-30] MEDS: Budesonide Respules 0.5 MG/2 ML AMPUL.NEB. INHALATION (08:05)
[2023-04-30] MEDS: ITRACONAZOLE 100 MG CAPSULE 200 MG PO (09:01)
[2023-04-30] MEDS: Citalopram 10 MG Tablet PO (09:02)
[2023-04-30] MEDS: Potassium Chloride Oral Tablet 20 MEQ PO (09:02)
[2023-04-30] MEDS: Multivitamin (Healthy Eyes) Capsule 2 CAP PO (09:02)
[2023-04-30] MEDS: Multivitamins,Therapeutic Tablet 1 TABLET PO (09:02)
[2023-04-30] MEDS: Cholecalciferol (VIT D3) 25 MCG TABLET (1,000 UNITS) PO (09:03)
[2023-04-30] MEDS: Pantoprazole Sodium 40 MG Tablet PO (09:03)
[2023-04-30] MEDS: Fluticasone 0.05% 1 SPRAY NASAL.SRY NASAL (09:03)
[2023-04-30] MEDS: Gabapentin 300 MG Capsule PO (09:07)
[2023-04-30 09:15] VITALS: BP 102/61; PULSE 97; RESP 16; TEMP 36.4; O2SAT 95
[2023-04-30 12:45] VITALS: BP 102/61; PULSE 97; RESP 16; TEMP 36.4; O2SAT 95
== END 2023-04-30 12:35 | disposition intermediate care facility (04) | DRG 603 ==
PROVIDERS: Admitting Provider Family Medicine Geriatric Medicine; PCP Internal Medicine; Visit Provider Family Medicine Geriatric Medicine
DX: L03.115 Cellulitis of right lower limb (principal); I82.401 Acute embolism and thrombosis of unspecified deep veins of right lower extremity; D69.6 Thrombocytopenia, unspecified; B39.9 Histoplasmosis, unspecified; R62.7 Adult failure to thrive; J44.9 Chronic obstructive pulmonary disease, unspecified; M06.9 Rheumatoid arthritis, unspecified; D64.9 Anemia, unspecified; H35.30 Unspecified macular degeneration; E55.9 Vitamin D deficiency, unspecified; K29.80 Duodenitis without bleeding; J30.9 Allergic rhinitis, unspecified; F41.9 Anxiety disorder, unspecified; K25.9 Gastric ulcer, unspecified as acute or chronic, without hemorrhage or perforation; Z87.891 Personal history of nicotine dependence; Z86.718 Personal history of other venous thrombosis and embolism; Z86.711 Personal history of pulmonary embolism; Z79.899 Other long term (current) drug therapy; Z79.51 Long term (current) use of inhaled steroids; Z86.16 Personal history of COVID-19
CPT/HCPCS: 36415; 71046; 74230; 80048; 81001; 85025; 85610; 87086; 87633; 87811; 92507; 92523; 92526; 92610; 92611; 94640; 97110; 97116; 97129; 97130; 97150; 97162; 97166; 97530; 97535; 97802

== ENCOUNTER → 2023-04-10 | Outpatient (CLI) | payer MEDICARE, SELFPAY ==
--- NOTE | 2023-04-10 08:15 | VDLE_ITS ---
Reason For Study: Right leg swelling RIGHT LEFT GSV is normal. CFV is compressible, spontaneous, phasic, CFV is compressible, spontaneous, phasic, competent, and demonstrates normal competent and demonstrates normal augmentation. augmentation. FV is compressible, spontaneous, phasic, competent and demonstrates normal augmentation. POP V is compressible, spontaneous, phasic, competent and demonstrates normal augmentation. T/P Trunk is compressible. PTV is compressible. Acute deep vein thrombosis is noted in the Per V. It is dilated and NONCOMPRESSIBLE. Nonvascularized structure noted in the right popliteal fossa measures 1.32 x 3.01 x 4.19 cm. Procedure This is a venous duplex using B-mode, color flow and spectral Doppler. Exam performed portable in patient room. A preliminary report was called and/or faxed to TCU RN. VL/Venous Duplex US, Unilateral Interpretation Summary Acute deep vein thrombosis is noted in the right peroneal vein. Nonvascularized structure noted in the right popliteal fossa measures 1.32 x 3. 01 x 4.19 cm. Ordering Physician: Edinson Irvin Chi Referring Physician: Deyanira Pak M.D. Performed By: Zhanna Kramer RVT
== END | disposition home or self-care (01) ==
LOC: CVS 08:14
PROVIDERS: PCP Internal Medicine; Referring Provider Family Medicine Geriatric Medicine; Visit Provider Family Medicine Geriatric Medicine
DX: R22.41 Localized swelling, mass and lump, right lower limb (principal)
CPT/HCPCS: 93971

== ENCOUNTER → 2023-05-01 | Outpatient (REF) | payer MEDICARE, SELFPAY ==
[2023-05-01 07:58] LABS: Absolute Lymphocyte Count 1.74 X10^3/uL (0.83-4.51); Absolute Neutrophil Count 4.7 X10^3/uL (2.0-7.7); Basophil# 0.05 X10^3/uL; Basophil% 0.7 % (0-1); Eosinophils% 1.3 % (0-5); Hematocrit 33.1 % (37-47); Hemoglobin 10.7 g/dL (12.0-15.0); Lymphocyte # 1.74 X10^3/ul (0.83-4.51); Lymphocyte % 23.1 % (19-41); Mean Corp Hgb Conc 32.3 g/dL (32-36); Mean Corpuscular Hgb 27.2 pg (27.0-32.0); Mean Corpuscular Volume 84.2 fL (81-99); Mean Platelet Vol. 10.2 fl (6.2-12.0); NRBC Flagged by Analyzer 0 % (0-5); Neutrophil # 4.69 X10^3/uL (2.7-7.7); Neutrophil % 62.4 % (47-70); Platelet Count 223 K/mm3 (150-450); RBC Distribution Width CV 19.4 % (11.6-14.6); RBC Distribution Width SD 60.2 fl (35.1-43.9); Red Blood Count 3.93 M/mm3 (4.2-5.4); White Blood Count 7.5 K/mm3 (4.4-11.0)
[2023-05-01 08:17] LABS: Vitamin D,25 Hydroxy 42.6 ng/mL
[2023-05-01 08:29] LABS: ALB/GLOB Ratio 0.9 RATIO (0.9-2.4); AST(SGOT) 23 U/L (15-37); Alanine Aminotransfer ALT/SGPT 35 U/L (13-56); Albumin, Serum 2.7 g/dL (3.2-5.0); Alkaline Phosphatase 93 U/L (45-117); Anion Gap 5 (5-15); BUN 27 mg/dL (7-18); BUN/Creat Ratio 56.7 RATIO (10-20); Calcium,Total 8.6 mg/dL (8.5-10.1); Chloride 105 mmol/L (98-107); Creatinine, Serum 0.48 mg/dL (0.55-1.02); EST Glomerular Filtration Rate 135 mL/min (>60); Est Glom Filt Rate - Afr Amer 163 mL/min (>60); Globulin 3.1 g/dL (2.2-4.2); Glucose 86 mg/dL (74-106); Potassium 3.7 mmol/L (3.5-5.1); Protein, Total 5.8 g/dL (6.4-8.2); Sodium Level 137 mmol/L (136-145)
== END ==
LOC: OLS.WHLEAS 06:30
PROVIDERS: PCP Internal Medicine; Visit Provider Internal Medicine
DX: D64.9 Anemia, unspecified (principal); E55.9 Vitamin D deficiency, unspecified
CPT/HCPCS: 36415; 80053; 82306; 85025

== ENCOUNTER → 2023-05-03 | Outpatient (REF) | payer MEDICARE, SELFPAY ==
[2023-05-03 08:48] LABS: International Normalized Ratio 2.1; Prothrombin Time (Protime)PT. 23.2 SECONDS (11.7-14.9)
== END ==
LOC: OLS.WHLEAS 05:00
PROVIDERS: PCP Internal Medicine; Visit Provider Internal Medicine
DX: Z86.718 Personal history of other venous thrombosis and embolism (principal)
CPT/HCPCS: 36415; 85610

== ENCOUNTER → 2023-05-07 | Outpatient (REF) | payer MEDICARE, SELFPAY ==
[2023-05-07 07:47] LABS: INR Fingerstick 2.2; Prothrombin Time Fingerstick 24.4 SEC (11.7-14.9)
== END ==
LOC: OLS.WHLEAS 05:00
PROVIDERS: PCP Internal Medicine; Visit Provider Internal Medicine
DX: Z86.718 Personal history of other venous thrombosis and embolism (principal)
CPT/HCPCS: 36416; 85610

== ENCOUNTER → 2023-05-10 | Outpatient (REF) | payer MEDICARE, SELFPAY ==
[2023-05-10 08:53] LABS: INR Fingerstick 2.8; Prothrombin Time Fingerstick 28.1 SEC (11.7-14.9)
== END ==
LOC: OLS.WHLEAS 05:00
PROVIDERS: PCP Internal Medicine; Visit Provider Internal Medicine
DX: Z86.718 Personal history of other venous thrombosis and embolism (principal)
CPT/HCPCS: 36416; 85610

== ENCOUNTER → 2023-05-14 | Outpatient (REF) | payer MEDICARE, SELFPAY ==
[2023-05-14 07:17] LABS: Prothrombin Time Fingerstick 30.4 SEC (11.7-14.9)
== END ==
LOC: OLS.WHL 05:00
PROVIDERS: PCP Internal Medicine; Visit Provider Internal Medicine
DX: Z86.718 Personal history of other venous thrombosis and embolism (principal)
CPT/HCPCS: 36416; 85610

== ENCOUNTER → 2023-05-15 | Outpatient (REF) | payer MEDICARE, SELFPAY ==
[2023-05-15 09:02] LABS: Absolute Lymphocyte Count 1.62 X10^3/uL (0.83-4.51); Absolute Neutrophil Count 5.6 X10^3/uL (2.0-7.7); Basophil# 0.06 X10^3/uL; Basophil% 0.7 % (0-1); Eosinophil# 0.28 X10^3/uL; Eosinophils% 3.3 % (0-5); Lymphocyte # 1.62 X10^3/ul (0.83-4.51); Lymphocyte % 18.8 % (19-41); Mean Corp Hgb Conc 31.3 g/dL (32-36); Mean Corpuscular Hgb 25.8 pg (27.0-32.0); Mean Corpuscular Volume 82.7 fL (81-99); Mean Platelet Vol. 10.2 fl (6.2-12.0); Monocyte# 1.02 X10^3/uL; Monocyte% 11.8 % (0-10); NRBC Flagged by Analyzer 0 % (0-5); Neutrophil # 5.58 X10^3/uL (2.7-7.7); Neutrophil % 64.8 % (47-70); Platelet Count 322 K/mm3 (150-450); RBC Distribution Width CV 18.1 % (11.6-14.6); RBC Distribution Width SD 54.5 fl (35.1-43.9); Red Blood Count 3.87 M/mm3 (4.2-5.4); White Blood Count 8.6 K/mm3 (4.4-11.0)
[2023-05-15 09:12] LABS: Anion Gap 7 (5-15); BUN 13 mg/dL (7-18); BUN/Creat Ratio 20.4 RATIO (10-20); Chloride 103 mmol/L (98-107); Creatinine, Serum 0.64 mg/dL (0.55-1.02); EST Glomerular Filtration Rate 96 mL/min (>60); Est Glom Filt Rate - Afr Amer 117 mL/min (>60); Glucose 71 mg/dL (74-106); Potassium 4.1 mmol/L (3.5-5.1); Sodium Level 137 mmol/L (136-145)
== END ==
LOC: OLS.WHLEAS 05:00
PROVIDERS: PCP Internal Medicine; Visit Provider Internal Medicine
DX: D64.9 Anemia, unspecified (principal); I35.0 Nonrheumatic aortic (valve) stenosis; E43 Unspecified severe protein-calorie malnutrition
CPT/HCPCS: 36415; 80048; 85025

== ENCOUNTER → 2023-05-17 | Outpatient (REF) | payer MEDICARE, SELFPAY ==
[2023-05-17 10:14] LABS: Prothrombin Time Fingerstick 30.2 SEC (11.7-14.9)
== END ==
LOC: OLS.WHLEAS 05:00
PROVIDERS: PCP Internal Medicine; Visit Provider Internal Medicine
DX: Z86.718 Personal history of other venous thrombosis and embolism (principal)
CPT/HCPCS: 36416; 85610

== ENCOUNTER → 2023-05-21 | Outpatient (REF) | payer MEDICARE, SELFPAY ==
[2023-05-21 09:24] LABS: INR Fingerstick 2.8; Prothrombin Time Fingerstick 28.8 SEC (11.7-14.9)
== END ==
LOC: OLS.WHLEAS 05:00
PROVIDERS: PCP Internal Medicine; Visit Provider Internal Medicine
DX: Z86.718 Personal history of other venous thrombosis and embolism (principal)
CPT/HCPCS: 36416; 85610

== ENCOUNTER → 2023-05-24 | Outpatient (REF) | payer MEDICARE, SELFPAY ==
[2023-05-24 07:29] LABS: INR Fingerstick 1.9; Prothrombin Time Fingerstick 20.2 SEC (11.7-14.9)
== END ==
LOC: OLS.WHLEAS 05:00
PROVIDERS: PCP Internal Medicine; Visit Provider Internal Medicine
DX: Z86.718 Personal history of other venous thrombosis and embolism (principal)
CPT/HCPCS: 36416; 85610

== ENCOUNTER → 2023-05-28 | Outpatient (REF) | payer MEDICARE, SELFPAY ==
[2023-05-28 09:31] LABS: Prothrombin Time (Protime)PT. 30.6 SECONDS (11.7-14.9)
== END ==
LOC: OLS.WHLEAS 05:00
PROVIDERS: PCP Internal Medicine; Visit Provider Internal Medicine
DX: Z86.718 Personal history of other venous thrombosis and embolism (principal)
CPT/HCPCS: 36415; 85610

== ENCOUNTER → 2023-05-29 | Outpatient (REF) | payer MEDICARE, SELFPAY ==
[2023-05-29 08:30] LABS: Absolute Lymphocyte Count 1.06 X10^3/uL (0.83-4.51); Absolute Neutrophil Count 4.1 X10^3/uL (2.0-7.7); Basophil# 0.03 X10^3/uL; Basophil% 0.5 % (0-1); Eosinophils% 3.2 % (0-5); Hematocrit 30.8 % (37-47); Hemoglobin 9.8 g/dL (12.0-15.0); Lymphocyte # 1.06 X10^3/ul (0.83-4.51); Lymphocyte % 17.1 % (19-41); Mean Corp Hgb Conc 31.8 g/dL (32-36); Mean Corpuscular Hgb 25.8 pg (27.0-32.0); Mean Corpuscular Volume 81.1 fL (81-99); Monocyte# 0.76 X10^3/uL; Monocyte% 12.3 % (0-10); NRBC Flagged by Analyzer 0 % (0-5); Neutrophil # 4.12 X10^3/uL (2.7-7.7); Neutrophil % 66.4 % (47-70); Platelet Count 194 K/mm3 (150-450); RBC Distribution Width CV 17.6 % (11.6-14.6); RBC Distribution Width SD 52.1 fl (35.1-43.9); White Blood Count 6.2 K/mm3 (4.4-11.0)
[2023-05-29 13:38] LABS: Anion Gap 5 (5-15); BUN 16 mg/dL (7-18); BUN/Creat Ratio 29.6 RATIO (10-20); Calcium,Total 8.4 mg/dL (8.5-10.1); Chloride 106 mmol/L (98-107); Creatinine, Serum 0.54 mg/dL (0.55-1.02); EST Glomerular Filtration Rate 116 mL/min (>60); Est Glom Filt Rate - Afr Amer 141 mL/min (>60); Glucose 80 mg/dL (74-106); Potassium 3.4 mmol/L (3.5-5.1); Sodium Level 139 mmol/L (136-145)
== END ==
LOC: OLS.WHLEAS 05:00
PROVIDERS: PCP Internal Medicine; Visit Provider Internal Medicine
DX: D64.9 Anemia, unspecified (principal); J44.9 Chronic obstructive pulmonary disease, unspecified; I35.0 Nonrheumatic aortic (valve) stenosis
CPT/HCPCS: 36415; 80048; 85025

== ENCOUNTER → 2023-05-31 | Outpatient (REF) | payer MEDICARE, SELFPAY ==
[2023-05-31 07:55] LABS: International Normalized Ratio 2.9; Prothrombin Time (Protime)PT. 29.8 SECONDS (11.7-14.9)
== END ==
LOC: OLS.WHLEAS 05:00
PROVIDERS: PCP Internal Medicine; Visit Provider Internal Medicine
DX: Z86.718 Personal history of other venous thrombosis and embolism (principal)
CPT/HCPCS: 36415; 85610

== ENCOUNTER 2023-08-13 09:36 | Inpatient (IN) | payer MEDICARE, SELFPAY ==
[2023-08-13] VITALS (31 sets, daily range): BP systolic 97–138; BP diastolic 50–94; PULSE 68–95; RESP 15–20; TEMP 35.9–37.2; O2SAT 95–100; BMI 21.1; BMI 22.6
--- NOTE | 2023-08-13 10:03 | EX.ED.DYSGE1 ---
HPI History of Present Illness Chief Complaint: Fall Informant: patient Narrative Narrative: Patient states overnight last night she started having black tarry diarrhea all and then also resolved some small amounts of gross blood in her stool as well. This morning she fell twice, landing on both of her knees both times. She is unsure why she fell she denies any prodromal symptoms such as lightheadedness, chest discomfort, or generalized weakness that she knows of. She has chronic pain and swelling in both of her knees from rheumatoid arthritis, currently not able to treat that because she has been on some type of antifungal for histoplasmosis since 5 or 6 months ago. She is on warfarin because of a history of lots of DVTs and has a permanent IVC filter as a result of this as well. She states she is chronically anemic to begin with and is very concerned that she may be bleeding internally. [facility] Medical History Thrombocytopenia Adult failure to thrive Leg edema Rheumatoid arthritis COPD (chronic obstructive pulmonary disease) Former smoker DVT (deep venous thrombosis) Pulmonary embolism Colitis COVID-19 Histoplasmosis Home Medications ?Medication ?Instructions ?Recorded ?Last Taken ?Type multivitamin (Daily Multi-Vitamin 1 tab PO DAILY supplement 03/19/23 08/12/23 History tablet) vitamins A,C,H-xwgk-iegnsm 2,148 2 tab PO BID eye health 03/19/23 08/12/23 History mcg-113 mg-45 mg-17.4 mg tablet (PreserVision AREDS) gabapentin 300 mg capsule 300 mg PO Q12 nerve pain #0 caps 04/05/23 08/12/23 Rx acetaminophen 500 mg tablet 1,000 mg (2 x 500 mg) PO Q6H PRN 04/27/23 Unknown Rx PRN Pain Score 1-10 #0 tabs potassium chloride 20 mEq 20 meq PO BIDCM #0 tabs 04/27/23 08/12/23 Rx tablet,extended release(part/cryst) fluticasone 250 mcg-salmeterol 50 1 ea inhalation BID 08/13/23 08/12/23 History mcg/dose blistr powdr for inhalation fluticasone propionate 50 1 spray intranasal DAILY 08/13/23 08/12/23 History mcg/actuation nasal spray,suspension furosemide 20 mg tablet 20 mg PO DAILY PRN edema 08/13/23 08/12/23 History itraconazole 10 mg/mL oral solution 200 mg PO BID 08/13/23 08/12/23 History naproxen 500 mg tablet 500 mg PO BID PRN 08/13/23 08/12/23 History prednisone 20 mg tablet 20 mg PO Q12H 08/13/23 08/12/23 History tiotropium bromide 2.5 2 puff inhalation DAILY 08/13/23 08/12/23 History mcg/actuation mist for inhalation (Spiriva Respimat) warfarin 5 mg tablet 5 mg PO SUMOTUWEFRSA 08/13/23 08/12/23 History warfarin 7.5 mg tablet (Jantoven) 7.5 mg PO TH 08/13/23 08/12/23 History Allergy/AdvReac Type Severity Reaction Status Date / Time Penicillins Allergy Severe Anaphylaxis Verified 03/28/23 16:32 Surgical History History of embolic filter insertion Hx of foot surgery Social History household members: none Smoking Status: Former smoker alcohol intake: never substance use type: does not use ROS ROS ED Constitutional Constitutional ED: Denies chills or fever(s) Eyes Eyes: Denies change in vision or diplopia ENT ENT ED: Denies rhinorrhea or sore throat Cardiovascular Cardiovascular: Denies chest pain or palpitations Respiratory/Chest Respiratory/Chest: Denies cough or dyspnea Gastrointestinal Gastrointestinal: Reports diarrhea, hematochezia and melena; Denies abdominal pain, hematemesis, nausea or vomiting Genitourinary Genitourinary ED: Denies dysuria or hematuria Musculoskeletal Musculoskeletal: Reports arthralgias and extremity pain; Denies back pain or neck pain Integumentary Denies abscess or rash Neurologic Neurologic: Denies headache(s), paresthesias or weakness Psychiatric Psychiatric: Denies anxiety or suicidal thoughts EXAM Physical Exam Const Vital Signs: 08/13/23 09:37 08/13/23 09:41 08/13/23 11:06 Temperature 97.7 F L 97.6 F L Temperature Source Temporal Pulse Rate 85 68 Respiratory Rate 18 18 Respiratory Effort Normal Respiratory Depth Normal Blood Pressure 111/50 L 111/58 L Blood Pressure Mean 70 75 Pulse Ox 97 98 Oxygen Delivery Method Room Air Room Air Positive well nourished and well developed General Appearance ED: well developed and NAD HEENT Reports moist mucous membranes normocephalic and atraumatic Eyes PERRL and EOMs intact bilaterally Neck full ROM and supple Resp normal respiratory effort and clear to auscultation bilaterally Cardio regular rate, regular rhythm and no murmurs GI non-tender and non-distended GI Narrative: On rectal no tenderness, there is dark stool without any gross blood present. Sent for Hemoccult. Auscultation: hyperactive bowel sounds Palpation: soft Back/Spine no CVA tenderness General Back: other FROM Extremity normal to inspection Extremity Narrative: Swelling about both knees, chronic per patient. No specific bony tenderness. Extensor mechanism intact. Able to move her knees without difficulty, limited at flexion bilaterally and symmetrically due to pain that she states is her baseline. General Extremety ED: Yes edema; Negative for pulses abnormal or tenderness General Extremity: edema bilateral lower extremity Details: mild; Negative for pulses abnormal Neuro oriented x3, CN's II-XII intact bilaterally and no sensory deficits noted Sensorium / Orientation: awake and alert Motor Exam: strength 5/5 throughout Psych mental status grossly normal Skin no rashes or lesions noted and no wounds MDM MDM MDM Narrative Medical decision making narrative: Patient's Hemoccult is positive, her INR is 4.8 supratherapeutic, and her hemoglobin is down to 5.4 all consistent with acute blood loss anemia from what appears to be more likely an upper GI bleed. Typed and crossed the patient for 2 units packed red blood cells, her vital signs are stable right now at rest, patient consents to transfusion after we discussed pros and cons, discussed with GI Dr. Friend after giving the patient IV pantoprazole 40 mg. Vital signs have remained stable and normal, clinically she is doing well at rest. GI agrees with reversing her warfarin given the risk/benefit ratio, she does not have a mechanical heart valve. Discussed with hospitalist for admission, likely scope at some point later today. Pantoprazole drip considered but after discussing with GI not indicated at the current time. Lab Data Attestation: I reviewed the patient's lab results. Labs: Laboratory Results - last 24 hr 08/13/23 08/13/23 09:45 10:00 WBC 13.8 H RBC 1.94 L Hgb 5.4 L* Hct 17.2 L MCV 88.7 MCH 27.8 MCHC 31.4 L RDW Std Deviation 61.9 H RDW Coeff of Catarino 19.3 H Plt Count 211 MPV 12.3 H Immature Gran % (Auto) 2.000 H Neut % (Auto) 80.5 H Lymph % (Auto) 7.8 L Claiborne % (Auto) 9.6 Eos % (Auto) 0.0 Baso % (Auto) 0.1 Absolute Neuts (auto) 11.1 H Absolute Lymphs (auto) 1.08 Nucleated RBC % 0.2 PT 44.8 H INR 4.8 H* Sodium 142 Potassium 3.6 Chloride 110 H Carbon Dioxide 24.0 Anion Gap 8 BUN 62 H Creatinine 0.64 Estim Creat Clear Calc 55.99 Est GFR (MDRD) Af Amer 116 Est GFR (MDRD) Non-Af 96 BUN/Creatinine Ratio 96.9 H Glucose 169 H Calcium 7.9 L Blood Type O POSITIVE Antibody Screen NEGATIVE Crossmatch See Detail Rhythm Strip Rhythm Strip: Sinus Rhythm Rate: 95 Ectopy: None Management Discussion w/another healthcare provider: Hospitalist and Efficiency Clerk (GI friend) Critical Care Time Critical Care Time: Yes Critical care time (excluding procedures): 30-74 minutes (36 min), Including time spent:, Discussing w/Patient &/or Family/Yard General Car Supervisor, Discussing w/Consultants, Arranging Admission or Transfer and Performing Direct Patient Care at Bedside Discharge Plan Dx/Rx/DC Orders Clinical Impression: ABLA (acute blood loss anemia), Histoplasmosis, History of DVT (deep vein thrombosis), Acute upper gastrointestinal bleeding Disposition Disposition: Acute Care [facility]
[2023-08-13 10:16] LABS: Absolute Lymphocyte Count 1.08 X10^3/uL (0.83-4.51); Absolute Neutrophil Count 11.1 X10^3/uL (2.0-7.7); Basophil# 0.02 X10^3/uL; Basophil% 0.1 % (0-1); Hematocrit 17.2 % (37-47); Hemoglobin 5.4 g/dL (12.0-15.0); Lymphocyte # 1.08 X10^3/ul (0.83-4.51); Lymphocyte % 7.8 % (19-41); Mean Corp Hgb Conc 31.4 g/dL (32-36); Mean Corpuscular Hgb 27.8 pg (27.0-32.0); Mean Corpuscular Volume 88.7 fL (81-99); Mean Platelet Vol. 12.3 fl (6.2-12.0); Monocyte# 1.32 X10^3/uL; Monocyte% 9.6 % (0-10); NRBC Flagged by Analyzer 0.2 % (0-5); Neutrophil # 11.11 X10^3/uL (2.7-7.7); Neutrophil % 80.5 % (47-70); POSITIVE COUNT YES; Platelet Count 211 K/mm3 (150-450); RBC Distribution Width CV 19.3 % (11.6-14.6); RBC Distribution Width SD 61.9 fl (35.1-43.9); Red Blood Count 1.94 M/mm3 (4.2-5.4); White Blood Count 13.8 K/mm3 (4.4-11.0)
[2023-08-13] MEDS: Pantoprazole Sodium 40 MG in 0.9% Normal Saline (50mL Bag) 15 ML 420 MG IV BOLUS (10:21)
[2023-08-13] MEDS: 0.9% Normal Saline (500mL Bag) 500 ML 999 ML IV (10:21)
[2023-08-13 10:27] LABS: International Normalized Ratio 4.8; Prothrombin Time (Protime)PT. 44.8 SECONDS (11.7-14.9)
[2023-08-13 10:35] LABS: Differential Indicated SCAN CRITERIA MET
[2023-08-13 10:47] LABS: Anion Gap 8 (5-15); BUN 62 mg/dL (7-18); BUN/Creat Ratio 96.9 RATIO (10-20); Calcium,Total 7.9 mg/dL (8.5-10.1); Chloride 110 mmol/L (98-107); Creatinine, Serum 0.64 mg/dL (0.55-1.02); EST Glomerular Filtration Rate 96 mL/min (>60); Est Glom Filt Rate - Afr Amer 116 mL/min (>60); Estimated Creatinine Clearance 55.99 ml/min; Glucose 169 mg/dL (74-106); Potassium 3.6 mmol/L (3.5-5.1); Sodium Level 142 mmol/L (136-145)
[2023-08-13] MEDS: Phytonadione (Vit K) 5 MG in 0.9% Normal Saline (50mL Bag) 50 ML 150 MG IV (11:14)
--- NOTE | 2023-08-13 11:36 | EKG12_ITS ---
Test Reason : SYNCOPE Blood Pressure : / mmHG Vent. Rate : 090 BPM Atrial Rate : 090 BPM P-R Int : 132 ms QRS Dur : 070 ms QT Int : 368 ms P-R-T Axes : 068 055 056 degrees QTc Int : 450 ms Normal sinus rhythm Nonspecific ST and T wave abnormality Abnormal ECG Confirmed by Diaz Puckett ([id number]), technical writer and editor ROCHELLE ELIZABETH ([id number]) on 08/14/2023 8:03:47 AM Referred By: Confirmed By:Diaz Puckett
--- NOTE | 2023-08-13 11:38 | ED.RN ---
At approximately 1130 pt requested to use the bathroom. 2 RNs helped assist to bedside commode. Pt began leaning to the right and became unresponsive with pulse present. Pt placed back in bed, sternal rubbed and now back at baseline orientation. Vitals: BP 113/72 heart rate 92, 98% on room air.
[2023-08-13] MEDS: 0.9% Normal Saline (1000mL) 1,000 ML 999 ML IV (11:45)
--- NOTE | 2023-08-13 11:47 | PCM.HP.STD ---
HPI - General General Date of Admission: 08/13/23 Date of Service: 08/13/23 Chief Complaint: Black and bloody stools HPI Narrative ALENA BUSTAMANTE, is a 78 F with a history of multiple DVTs on Coumadin and IVC filter, histoplasmosis, RA, severe arctic stenosis, chronic anemia, COPD who presented to [facility] ED 08/13/2023 with dark and bloody bowel movements since 9 PM last night. In the ED she was found to have a hemoglobin of 5.4 and 2 units packed red blood cells were ordered as well as IV PPI, additionally had a an INR of 4.8 and given her hemoglobin and bleeding she was given FFP and vitamin K and GI was contacted who are aware and recommended PPI and admission. Hospitalist contacted for admission. Patient reports history as above and denies any problems with bleeding before 9 PM last night. Since she began bleeding she fell twice onto her knees, she is unclear the cause of this but thinks it could have been weakness. Denies abdominal pain, no nausea, thinks she might be having a little bit of a harder time breathing however she is due for inhalers and has not got them she is in the ED. No further episodes of bleeding since being in the ED and only other complaint is that her knees are somewhat aching. Upon initial evaluation in the ED patient responded to her name and then slumped over and was less responsive, she was put on the bed and responded to sternal rub with her name and over several minutes return to baseline, at that time she had a pulse and blood pressure in the bed was systolic of 90. Patient reports she did not remember this episode after she was back to baseline. Blood and fluids hung at that time and patient advised to stay in bed, additionally Izquierdo was placed and additional PIV was placed. Also of note patient reports she was recently put on prednisone but was poor historian and was unable to tell me why at time of exam. [facility] Medical History (Updated 08/13/23 @ 12:[address] Laine Veras MD) Adult failure to thrive Colitis COPD (chronic obstructive pulmonary disease) COVID-19 DVT (deep venous thrombosis) Former smoker Histoplasmosis Leg edema Pulmonary embolism Rheumatoid arthritis Severe aortic stenosis Thrombocytopenia Home Medications ?Medication ?Instructions ?Recorded ?Last Taken ?Type multivitamin (Daily Multi-Vitamin 1 tab PO DAILY supplement 03/19/23 08/12/23 History tablet) vitamins A,C,Q-foxv-xqumzi 2,148 2 tab PO BID eye health 03/19/23 08/12/23 History mcg-113 mg-45 mg-17.4 mg tablet (PreserVision AREDS) gabapentin 300 mg capsule 300 mg PO Q12 nerve pain #0 caps 04/05/23 08/12/23 Rx acetaminophen 500 mg tablet 1,000 mg (2 x 500 mg) PO Q6H PRN 04/27/23 Unknown Rx PRN Pain Score 1-10 #0 tabs potassium chloride 20 mEq 20 meq PO BIDCM #0 tabs 04/27/23 08/12/23 Rx tablet,extended release(part/cryst) fluticasone 250 mcg-salmeterol 50 1 ea inhalation BID 08/13/23 08/12/23 History mcg/dose blistr powdr for inhalation fluticasone propionate 50 1 spray intranasal DAILY 08/13/23 08/12/23 History mcg/actuation nasal spray,suspension furosemide 20 mg tablet 20 mg PO DAILY PRN edema 08/13/23 08/12/23 History itraconazole 10 mg/mL oral solution 200 mg PO BID 08/13/23 08/12/23 History naproxen 500 mg tablet 500 mg PO BID PRN 08/13/23 08/12/23 History prednisone 20 mg tablet 20 mg PO Q12H 08/13/23 08/12/23 History tiotropium bromide 2.5 2 puff inhalation DAILY 08/13/23 08/12/23 History mcg/actuation mist for inhalation (Spiriva Respimat) warfarin 5 mg tablet 5 mg PO SUMOTUWEFRSA 08/13/23 08/12/23 History warfarin 7.5 mg tablet (Jantoven) 7.5 mg PO TH 08/13/23 08/12/23 History Allergy/AdvReac Type Severity Reaction Status Date / Time Penicillins Allergy Severe Anaphylaxis Verified 03/28/23 16:32 Surgical History History of embolic filter insertion Hx of foot surgery Social History household members: none Smoking Status: Former smoker alcohol intake: never substance use type: does not use ROS ROS Narrative General: Denies fever/chills HENT: Denies headache, slight stuffy nose, denies sore throat EYES: Denies changes in vision Resp: Denies cough, has not had inhalers this afternoon so does feel little short of breath Cardiac: Denies chest pain GI: Denies abdominal pain, dark or bloody bowel movements since yesterday, denies nausea/vomiting : Denies changes in urination Extremity: Some knee pain after her fall MSK: Denies weakness Neuro: Denies any numbness/tingling Heme: Denies any bleeding or bruising Skin: Denies rashes Psychiatric: No complaints voiced Vital Signs Vital Signs Vital Signs: 08/13/23 09:37 08/13/23 09:41 08/13/23 11:06 Temperature 97.7 F L 97.6 F L Temperature Source Temporal Pulse Rate 85 68 Respiratory Rate 18 18 Respiratory Effort Normal Respiratory Depth Normal Blood Pressure 111/50 L 111/58 L Blood Pressure Mean 70 75 Blood Pressure Source Pulse Ox 97 98 Oxygen Delivery Method Room Air Room Air 08/13/23 11:36 08/13/23 11:37 Temperature 96.6 F L Temperature Source Temporal Pulse Rate 94 88 Respiratory Rate 18 18 Respiratory Effort Respiratory Depth Blood Pressure 97/57 L 114/51 L Blood Pressure Mean 70 72 Blood Pressure Source Monitor Pulse Ox 98 98 Oxygen Delivery Method Room Air Room Air Weight Weight: 59.285 kg Body Mass Index (BMI) 21.1 Physical Exam Narrative Exam below after patient was put into bed after syncopal episode: General: Alert, oriented, no apparent distress HEENT: Atraumatic, normocephalic Eyes: Anicteric, normal conjunctiva, extraocular movements grossly intact Neck: Supple Respiratory: Clear to auscultation bilaterally, normal respiratory effort Cardiovascular: Regular rate and rhythm GI: Soft, nontender, nondistended Extremities: Slight edema lower extremities Musculoskeletal: Moving all extremities Neuro: No overt focal neurological deficits Skin: No rashes appreciated Psych: Cooperative Results Lab / Micro Data 08/13/23 09:45 08/13/23 09:45 Labs: Laboratory Results - last 24 hr 08/13/23 09:45: WBC 13.8 H, RBC 1.94 L, Hgb 5.4 L*, Hct 17.2 L, MCV 88.7, MCH 27.8, MCHC 31.4 L, RDW Std Deviation 61.9 H, RDW Coeff of Catarino 19.3 H, Plt Count 211, MPV 12.3 H, Immature Gran % (Auto) 2.000 H, Neut % (Auto) 80.5 H, Lymph % (Auto) 7.8 L, Kerr % (Auto) 9.6, Eos % (Auto) 0.0, Baso % (Auto) 0.1, Absolute Neuts (auto) 11.1 H, Absolute Lymphs (auto) 1.08, Nucleated RBC % 0.2, PT 44.8 H, INR 4.8 H*, Sodium 142, Potassium 3.6, Chloride 110 H, Carbon Dioxide 24.0, Anion Gap 8, BUN 62 H, Creatinine 0.64, Estim Creat Clear Calc 55.99, Est GFR (MDRD) Af Amer 116, Est GFR (MDRD) Non-Af 96, BUN/Creatinine Ratio 96.9 H, Glucose 169 H, Calcium 7.9 L 08/13/23 10:00: Blood Type O POSITIVE, Antibody Screen NEGATIVE, Crossmatch See Detail Micro: Microbiology 08/13/23 10:02 Stool Stool Occult Blood (JACKIE) - Final Occult Blood Positive Rhythm Strip Rhythm Strip: Sinus Rhythm Rate: 95 Ectopy: None Assessment & Plan Assessment/Plan (1) ABLA (acute blood loss anemia): (2) COPD (chronic obstructive pulmonary disease): (3) Histoplasmosis: (4) History of DVT (deep vein thrombosis): (5) Rheumatoid arthritis: (6) Weakness: (7) Severe aortic stenosis: PLAN: Plan #Acute on chronic anemia- suspect ABLA from GI bleed -Patient with black tarry and bloody stools since yesterday -Possibly secondary to supratherapeutic INR and per home med list patient is on naproxen twice daily, hold naproxen -symptomatic with syncopal episode in ED -No further bleeding in ED -Hemoglobin 5.4 with a baseline between 9 and 10 -2 units packed red blood cells ordered -Npo -Trend H&H -Supratherapeutic on Coumadin with an INR of 4.8, vitamin K given in ED and FFP ordered, Coumadin held -IV PPI -GI c/s # Syncopal episode/severe aortic stenosis -Orthostatic versus vasovagal -Given hemoglobin and blood loss with syncopal event when sitting up patient to be admitted to ICU -In ED patient was up on bedside commode and suddenly slumped to the side and had decreased level consciousness -By the time patient got back to the bed she was responding verbally to sternal rub, systolic pressure in the 90s, patient had pulse and recovered after several minutes of laying flat -Bedrest at this time -1 L IV fluid and blood being hung at this time -Management of GI bleed as above -Patient had echocardiogram several months ago which demonstrated EF of 70% and severe aortic stenosis, volume depletion with her severe aortic stenosis seems to be most likely culprit for the syncopal episode in ED #Fall at home -Fill x 2 at home, unclear if this was due to weakness or other syncopal episodes -PT/OT -Treat volume depletion -Able to move both knees, can consider x-ray if any increased pain or no improvement -Tylenol as needed -May need to add pain medication but would be potentially limited by blood pressure #Hx DVTs/IVC filter/Supratherapeutic INR -INR 4.8 -Coumadin held, vitamin K given and FFP ordered in ED -Daily INR -SCDs for DVT prophylaxis #COPD -Continue home inhalers #Leukocytosis -Patient reports recently being on steroids though unclear indication, this is likely the cause of her elevated white blood cell count and she has no other infectious signs or symptoms #Hx RA -Not on treatment presently due to being treated for histoplasmosis #Hx histoplasmosis -Patient had been on itraconazole, unclear if she still taking her stop date, patient fairly poor historian in ED -Will need to clarify this #DVT ppx: SCDs Laine Veras MD Time spent in the patient's overall evaluation,decision-making process, review of diagnostic data, adjustment of management, discussion with other providers, nursing nursing and ancillary staff involved in patient's care documentation, 77 Minutes Charges/Coding Visit Charges Inpatient E&M: 98244 Init Hosp L3
[2023-08-13 17:35] LABS: Hemoglobin 6.9 g/dL (12.0-15.0)
[2023-08-13] MEDS: 0.9% Saline Lock 10 ML Syringe IV (17:57)
[2023-08-13] MEDS: Budesonide Respules 0.5 MG/2 ML AMPUL.NEB. INHALATION (20:32)
[2023-08-13] MEDS: Ipratropium/Albuterol Sulfate 3 ML AMPUL.NEB INHALATION (20:32)
[2023-08-13] MEDS: Pantoprazole Sodium 40 MG in 0.9% Normal Saline (100mL MB+) 100 ML 330 MG IV (21:46)
[2023-08-13] MEDS: Gabapentin 300 MG Capsule PO (21:46)
[2023-08-13 23:15] LABS: Hematocrit 23.9 % (37-47); Hemoglobin 8.1 g/dL (12.0-15.0)
--- NOTE | 2023-08-13 23:52 | EX.PCM.CON.G ---
HPI Consult Data Date of Consult: 08/13/23 HPI Narrative Reason for Consultation: GI bleed HPI Narrative: ALENA BUSTAMANTE, is a 78 F who stated that overnight last night she started having black tarry diarrhea all and then also resolved some small amounts of gross blood in her stool as well. This morning she fell twice, landing on both of her knees both times. She is unsure why she fell she denies any prodromal symptoms such as lightheadedness, chest discomfort, or generalized weakness that she knows of. She has chronic pain and swelling in both of her knees from rheumatoid arthritis, currently not able to treat that because she has been on some type of antifungal for histoplasmosis since 5 or 6 months ago. She is on warfarin because of a history of lots of DVTs and has a permanent IVC filter as a result of this as well. She states she is chronically anemic to begin with and is very concerned that she may be bleeding internally. While patient was still in the ER and being evaluated by the hospitalist, nurses had moved the patient to a bedside commode, and she had a syncopal episode. She was on the monitor. She did not have any telemetry event or asystole, they immediately moved her back to the bed and placed her supine, and yelled for a physician, I came immediately as the patient was starting to wake up and her blood pressure is 90 systolic. Blood is hanging, as is fluid I advised him to bolus her with IV normal saline and leave her supine until she is more alert and then we can set her up for gradually, I think this likely occurred as a result of her anemia. I was called to see her due to GI bleed. FOR[facility]LY [facility] Medical History Severe aortic stenosis Thrombocytopenia Adult failure to thrive Leg edema Rheumatoid arthritis COPD (chronic obstructive pulmonary disease) Former smoker DVT (deep venous thrombosis) Pulmonary embolism Colitis COVID-19 Histoplasmosis Home Medications ?Medication ?Instructions ?Recorded ?Last Taken ?Type multivitamin (Daily Multi-Vitamin 1 tab PO DAILY supplement 03/19/23 08/12/23 History tablet) vitamins A,C,P-cdvi-aovmvs 2,148 2 tab PO BID eye health 03/19/23 08/12/23 History mcg-113 mg-45 mg-17.4 mg tablet (PreserVision AREDS) gabapentin 300 mg capsule 300 mg PO Q12 nerve pain #0 caps 04/05/23 08/12/23 Rx acetaminophen 500 mg tablet 1,000 mg (2 x 500 mg) PO Q6H PRN 04/27/23 Unknown Rx PRN Pain Score 1-10 #0 tabs potassium chloride 20 mEq 20 meq PO BIDCM #0 tabs 04/27/23 08/12/23 Rx tablet,extended release(part/cryst) fluticasone 250 mcg-salmeterol 50 1 ea inhalation BID 08/13/23 08/12/23 History mcg/dose blistr powdr for inhalation fluticasone propionate 50 1 spray intranasal DAILY 08/13/23 08/12/23 History mcg/actuation nasal spray,suspension furosemide 20 mg tablet 20 mg PO DAILY PRN edema 08/13/23 08/12/23 History itraconazole 10 mg/mL oral solution 200 mg PO BID 08/13/23 08/12/23 History naproxen 500 mg tablet 500 mg PO BID PRN 08/13/23 08/12/23 History prednisone 20 mg tablet 20 mg PO Q12H 08/13/23 08/12/23 History tiotropium bromide 2.5 2 puff inhalation DAILY 08/13/23 08/12/23 History mcg/actuation mist for inhalation (Spiriva Respimat) warfarin 5 mg tablet 5 mg PO SUMOTUWEFRSA 08/13/23 08/12/23 History warfarin 7.5 mg tablet (Jantoven) 7.5 mg PO TH 08/13/23 08/12/23 History Allergy/AdvReac Type Severity Reaction Status Date / Time Penicillins Allergy Severe Anaphylaxis Verified 08/13/23 14:22 Surgical History History of embolic filter insertion Hx of foot surgery Social History household members: none Smoking Status: Former smoker alcohol intake: never substance use type: does not use ROS ROS Narrative General: Denies fever/chills HENT: Denies headache, slight stuffy nose, denies sore throat EYES: Denies changes in vision Resp: Denies cough, has not had inhalers this afternoon so does feel little short of breath Cardiac: Denies chest pain GI: Denies abdominal pain, dark or bloody bowel movements since yesterday, denies nausea/vomiting : Denies changes in urination Extremity: Some knee pain after her fall MSK: Denies weakness Neuro: Denies any numbness/tingling Heme: Denies any bleeding or bruising Skin: Denies rashes Psychiatric: No complaints voiced Physical Exam Narrative General: Alert, oriented, no apparent distress HEENT: Atraumatic, normocephalic, slightly dry oral mucosa Eyes: Anicteric, normal conjunctiva, extraocular movements grossly intact Neck: Supple Respiratory: Normal respiratory effort Cardiovascular: Regular rate and rhythm GI: Soft, nontender, nondistended Extremities: No edema Musculoskeletal: Moving all extremities Neuro: No overt focal neurological deficits Skin: No rashes appreciated Psych: Cooperative Lab / Micro Data 08/14/23 05:45 08/14/23 05:45 Labs: Laboratory Results - last 24 hr 08/13/23 09:45: Diff Path Review Reviewed 08/13/23 10:00: Crossmatch See Detail 08/13/23 20:55: Hgb 8.1 L, Hct 23.9 L 08/14/23 01:10: Hgb 7.8 L, Hct 22.9 L 08/14/23 05:45: WBC 9.8, RBC 2.91 L, Hgb 8.5 L, Hct 25.2 L, MCV 86.6, MCH 29.2, MCHC 33.7 D, RDW Std Deviation 55.8 H, RDW Coeff of Catarino 18.1 H, Plt Count 179, MPV 10.7, Neut % (Auto) Not Reportable, Absolute Neuts (auto) Not Reportable, PT 16.2 H, INR 1.3, Sodium 143, Potassium 3.1 L, Chloride 111 H, Carbon Dioxide 28.0, Anion Gap 4 L, BUN 28 H, Creatinine 0.42 L, Estim Creat Clear Calc 49.49, Est GFR (MDRD) Af Amer 189, Est GFR (MDRD) Non-Af 156, BUN/Creatinine Ratio 66.7 H, Glucose 86, Calcium 7.5 L, Phosphorus 2.3 L, Magnesium 1.9 Rhythm Strip Rhythm Strip: Sinus Rhythm Rate: 95 Ectopy: None Assessment & Plan Assessment/Plan (1) ABLA (acute blood loss anemia): (2) COPD (chronic obstructive pulmonary disease): (3) Histoplasmosis: (4) History of DVT (deep vein thrombosis): (5) Rheumatoid arthritis: (6) Weakness: (7) Severe aortic stenosis: PLAN: Plan 78-year-old with multiple medical problems including severe aortic stenosis, COPD, chronic thrombocytopenia and anemia with history of multiple DVTs status post IVC filter on anticoagulation who developed a syncopal episode after having black tarry and bloody stools since yesterday. She does have supratherapeutic INR. Her was Hemoglobin 5.4 with a baseline between 9 and 10. She Will receive 2 units packed red blood cells ,vitamin K given in ED and FFP ordered, Coumadin held. She will undergo Upper endoscopy and possibly colonoscopy. She was explained alternatives, risk, benefits including not withstanding bleeding, infection, sepsis, perforation, need for emergent urgent . She have an ASA of 3. Charges/Coding Visit Charges Inpatient E&M: 69914 Init Hosp L3
[2023-08-14] VITALS (24 sets, daily range): BP systolic 86–126; BP diastolic 52–99; PULSE 72–86; RESP 14–20; TEMP 36.5–37.3; O2SAT 92–100; BMI 22.6
[2023-08-14 07:08] LABS: Anion Gap 4 (5-15); BUN 28 mg/dL (7-18); BUN/Creat Ratio 66.7 RATIO (10-20); Calcium,Total 7.5 mg/dL (8.5-10.1); Chloride 111 mmol/L (98-107); Creatinine, Serum 0.42 mg/dL (0.55-1.02); EST Glomerular Filtration Rate 156 mL/min (>60); Est Glom Filt Rate - Afr Amer 189 mL/min (>60); Estimated Creatinine Clearance 49.49 ml/min; Glucose 86 mg/dL (74-106); Potassium 3.1 mmol/L (3.5-5.1); Sodium Level 143 mmol/L (136-145)
[2023-08-14 08:12] LABS: Hematocrit 25.2 % (37-47); Hemoglobin 8.5 g/dL (12.0-15.0); Mean Corpuscular Hgb 29.2 pg (27.0-32.0); Mean Corpuscular Volume 86.6 fL (81-99); Red Blood Count 2.91 M/mm3 (4.2-5.4); White Blood Count 9.8 K/mm3 (4.4-11.0)
[2023-08-14 08:13] LABS: Mean Corp Hgb Conc 33.7 g/dL (32-36); Mean Platelet Vol. 10.7 fl (6.2-12.0); Platelet Count 179 K/mm3 (150-450); RBC Distribution Width CV 18.1 % (11.6-14.6); RBC Distribution Width SD 55.8 fl (35.1-43.9)
[2023-08-14 08:21] LABS: Hematocrit 22.9 % (37-47); Hemoglobin 7.8 g/dL (12.0-15.0)
[2023-08-14] MEDS: Budesonide Respules 0.5 MG/2 ML AMPUL.NEB. INHALATION ×2 (08:22→19:08)
[2023-08-14] MEDS: Ipratropium/Albuterol Sulfate 3 ML AMPUL.NEB INHALATION ×3 (08:22→19:07)
[2023-08-14 08:58] LABS: International Normalized Ratio 1.3; Prothrombin Time (Protime)PT. 16.2 SECONDS (11.7-14.9)
[2023-08-14] MEDS: Pantoprazole Sodium 40 MG in 0.9% Normal Saline (100mL MB+) 100 ML 330 MG IV ×2 (09:00→21:07)
[2023-08-14] MEDS: 0.9% Normal Saline (250mL Bag) 250 ML 15 ML IV (09:20)
--- NOTE | 2023-08-14 09:47 | CASEMGMT ---
PAULA POND Assessment Face to Face with patient for initial transition planning/care coordination assessment. PAULA POND introduced self and role at [facility], pt voices understanding. Pt is A&Ox4 and is resting comfortably in bed and is calm. Care providers, pharmacy, and demographics verified. Admitting dx: ALEKS DEL TORO Strata: 3 PCP: Deyanira Pak Specialists: RA @ [facility], [facility], Cardio in [place] Preferred Pharmacy: [facility] [place] Insurance: [facility] Prescription Benefit: Yes LNOK: Milena Gerardo (Friend), Padmini Chang (Friend) Living Arrangements: Pt lives alone in a single story home with 1 step to enter. Pt has a finished basement with a handrail ADLs/IADLs: States ind Transportation: Self DME: Cane, grab bars. Medical Alert brochure given to pt at this time. Pt denies further DME uses or needs HHC/SNF: Denies HHC. Hx at [facility]CU and [facility] Pt?s goal: Home Plan: Pt wishes to return home with no additional needs at time of DC. However, PT is pending. 6-Click is 20. At this time, the pt is refusing HHC, OP Tx, or SNF needs. Pt states that her neighbors provide support as needed. Pt states that she plans to f/u with her PCP for any further needs after DC. Pt denies further questions or concerns at this time. CM to follow. Iain Molina RN, CM
--- NOTE | 2023-08-14 10:51 | PCM.PN.HOSP ---
Reason for Visit Reason for Visit: Diagnoses Histoplasmosis, unspecified (08/13/23) Acute posthemorrhagic anemia (08/13/23) Nonrheumatic aortic (valve) stenosis (08/13/23) Chronic obstructive pulmonary disease, unspecified (08/13/23) Rheumatoid arthritis, unspecified (08/13/23) Weakness (08/13/23) Personal history of other venous thrombosis and embolism (08/13/23) Subjective Subjective Beginning to feel much better today with better rest and blood, has not had any further episodes of bleeding since Coumadin reversed, no further syncopal episodes Objective Data Objective Data Vital Signs: Vital Signs Temp Pulse Resp BP Pulse Ox O2 Del Method 97.7 F L 76 16 115/62 97 Room Air 08/14/23 04:00 08/14/23 07:00 08/14/23 07:00 08/14/23 07:00 08/14/23 07:00 08/14/23 07:00 Oxygen Delivery Method Room Air Weight: 57.9 kg Body Mass Index (BMI) 22.6 Intake & Output: Intake and Output for Last 24 Hours 08/12/23 08/13/23 08/14/23 23:59 23:59 23:59 Intake Total 2188.5 / 2188.5 Output Total 2049 / 2049 1350 / 1350 Balance 138.5 / 138.5 -1350 / -1350 Lab / Micro Data 08/14/23 05:45 08/14/23 05:45 Labs: Laboratory Results - last 24 hr 08/13/23 10:00: Antibody Screen NEGATIVE, Crossmatch See Detail 08/13/23 10:00: Crossmatch See Detail 08/13/23 17:10: Hgb 6.9 L, Hct 21.0 L 08/13/23 20:55: Hgb 8.1 L, Hct 23.9 L 08/14/23 01:10: Hgb 7.8 L, Hct 22.9 L 08/14/23 05:45: WBC 9.8, RBC 2.91 L, Hgb 8.5 L, Hct 25.2 L, MCV 86.6, MCH 29.2, MCHC 33.7 D, RDW Std Deviation 55.8 H, RDW Coeff of Catarino 18.1 H, Plt Count 179, MPV 10.7, Neut % (Auto) Not Reportable, Absolute Neuts (auto) Not Reportable, PT 16.2 H, INR 1.3, Sodium 143, Potassium 3.1 L, Chloride 111 H, Carbon Dioxide 28.0, Anion Gap 4 L, BUN 28 H, Creatinine 0.42 L, Estim Creat Clear Calc 49.49, Est GFR (MDRD) Af Amer 189, Est GFR (MDRD) Non-Af 156, BUN/Creatinine Ratio 66.7 H, Glucose 86, Calcium 7.5 L Micro: Microbiology 08/13/23 10:02 Stool Stool Occult Blood (JACKIE) - Final Occult Blood Positive Rhythm Strip Rhythm Strip: Sinus Rhythm Rate: 95 Ectopy: None Physical Exam Narrative General: Alert, oriented, no apparent distress HEENT: Atraumatic, normocephalic, slightly dry oral mucosa Eyes: Anicteric, normal conjunctiva, extraocular movements grossly intact Neck: Supple Respiratory: Normal respiratory effort Cardiovascular: Regular rate and rhythm GI: Soft, nontender, nondistended Extremities: No edema Musculoskeletal: Moving all extremities Neuro: No overt focal neurological deficits Skin: No rashes appreciated Psych: Cooperative Assessment & Plan Assessment/Plan (1) ABLA (acute blood loss anemia): (2) COPD (chronic obstructive pulmonary disease): (3) Histoplasmosis: (4) History of DVT (deep vein thrombosis): (5) Rheumatoid arthritis: (6) Weakness: (7) Severe aortic stenosis: PLAN: Plan #Acute on chronic anemia- suspect ABLA from GI bleed -Patient with black tarry and bloody stools since yesterday -Possibly secondary to supratherapeutic INR and per home med list patient is on naproxen twice daily, hold naproxen -symptomatic with syncopal episode in ED -No further bleeding in ED -Hemoglobin 5.4 with a baseline between 9 and 10 -2 units packed red blood cells ordered -Npo -Trend H&H -Supratherapeutic on Coumadin with an INR of 4.8, vitamin K given in ED and FFP ordered, Coumadin held -IV PPI -GI c/s -08/13: Vitamin K given yesterday, FFP had been ordered but was not given, received 3 units packed red blood cells and hemoglobin is improved, has not bled since arrival so we will transfer out of ICU, discussed with GI, patient will likely need endoscopy, patient n.p.o. # Syncopal episode/severe aortic stenosis -Orthostatic versus vasovagal -Given hemoglobin and blood loss with syncopal event when sitting up patient to be admitted to ICU -In ED patient was up on bedside commode and suddenly slumped to the side and had decreased level consciousness -By the time patient got back to the bed she was responding verbally to sternal rub, systolic pressure in the 90s, patient had pulse and recovered after several minutes of laying flat -Bedrest at this time -1 L IV fluid and blood being hung at this time -Management of GI bleed as above -Patient had echocardiogram several months ago which demonstrated EF of 70% and severe aortic stenosis, volume depletion with her severe aortic stenosis seems to be most likely culprit for the syncopal episode in ED -08/13: No further syncopal episodes and symptoms improved with blood and bedrest #Fall at home -Fill x 2 at home, unclear if this was due to weakness or other syncopal episodes -PT/OT -Treat volume depletion -Able to move both knees, can consider x-ray if any increased pain or no improvement -Tylenol as needed -May need to add pain medication but would be potentially limited by blood pressure -08/13: Reports she is not presently having any pain and feels much better than she did at home #Hx DVTs/IVC filter/Supratherapeutic INR -INR 4.8 -Coumadin held, vitamin K given and FFP ordered in ED -Daily INR -SCDs for DVT prophylaxis -08/13: Continue SCDs, patient has complex history given her clotting and bleeding, discussed with GI and pending scope may need to continue to hold Coumadin and have this resumed at discretion of her outpatient provider if she does not have further bleeding after weighing risks and benefits, does have permanent IVC filter in place #COPD -Continue home inhalers #Leukocytosis -Patient reports recently being on steroids though unclear indication, this is likely the cause of her elevated white blood cell count and she has no other infectious signs or symptoms -08/13: Leukocytosis resolved without any antibiotics, low suspicion for anything infectious #Hx RA -Not on treatment presently due to being treated for histoplasmosis -08/13: Was on a prednisone taper for her RA however reports having no pain and overall feels better than she did #Hx histoplasmosis -Patient had been on itraconazole, unclear if she still taking her stop date, patient fairly poor historian in ED -Will need to clarify this -08/13: Is still on itraconazole, this has been reordered #DVT ppx: SCDs Laine Veras MD Time spent in the patient's overall evaluation,decision-making process, review of diagnostic data, adjustment of management, discussion with other providers, nursing nursing and ancillary staff involved in patient's care documentation, 38Minutes Charges/Coding Visit Charges Inpatient E&M: 37238 Subs Hosp L2
[2023-08-14] MEDS: Gabapentin 300 MG Capsule PO ×2 (11:56→21:08)
[2023-08-14] MEDS: Potassium Chloride Oral Tablet 20 MEQ 60 MEQ PO (12:07)
[2023-08-14] MEDS: 0.9% Saline Lock 10 ML Syringe IV (12:14)
[2023-08-14 12:23] LABS: Magnesium 1.9 mg/dL (1.6-2.6); Phosphorus 2.3 mg/dL (2.5-4.9)
[2023-08-14 13:39] LABS: Pathologist Review Reviewed
--- NOTE | 2023-08-14 14:37 | CHAPLAIN ---
Type of Pastoral Visit _x__ Initial Visit ___ Follow-up Visit ___ On-call Visit ___ General Patient Visit ___ Spiritual Assessment ___ Family Conference ___ Bereavement ___ Rapid Response ___ Code Blue ___ Other (describe below) Pastoral Care Referral From _x__ Patient ___ Family ___ Nurse ___ Physician ___ Retail Advertising Sales Manager ___ Post Anesthesia Nurse ___ Other (describe below) Sacrament/Intervention _x__ Active listening ___ Anointing ___ Worship ___ Bereavement ___ Communion ___ Adia exploration ___ ___ Life review _x__ Prayer ___ Reconciliation ___ Sacrament of Sick ___ Supportive presence ___ Wedding ___ Other (describe below) Pastoral Comments updates given by patient who has been seen before in the hospital; pt describes her situation with low blood count and possible move for housing; pt speaks of changes in life and 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
[2023-08-14] MEDS: Magnesium Sulfate 4gm/100mL 4 GM/100 ML IV.SOLN. IV (15:07)
--- NOTE | 2023-08-14 16:01 | PCM.PRE.AN2 ---
ASA Classification* ASA Classification ASA Classification: 3 Assessment & Plan Anesthesia* Anesthesia Assessment Anesthesia Assessment: Discussed sedation and/or anesthesia options, risks, benefits, and alternatives with patient/parents/legal guardian/POA. Questions invited. The patient/parents/legal guardian/POA seems to understand and agrees to proceed with anesthesia plan. Reviewed the physical assessment, medical history, allergy history and patient home medications list prior to surgery/procedure/anesthetic and documented any changes. Performed airway and anesthesia risk assessments. Procedural Plan Procedural Plan:: Proceed w/ Anesthesia plan Anesthesia Type Anesthesia Type: MAC History Source History Obtained from:: Patient and Chart Anesthesia Focused Assessment* Temperature: 98.9 F Pulse Rate: 83 Blood Pressure: 111/60 Respiratory Rate: 18 Pulse Ox: 96 Oxygen Delivery Method: Room Air Airway Assessment Mouth opens: >3 cm Mallampati Score: IV Teeth Condition: Caps/Crowns (Crowns on molars are all tight) Neck Range of motion (ROM): Limited ROM (Slightly decreased) Pertinent Findings EKG Pertinent Findings:: August 13, 2023 normal sinus rhythm nonspecific ST and T wave abnormalities ECHO Pertinent Findings:: April 02, 2023 70% ejection fraction. Severe aortic stenosis. Pulmonary artery systolic pressure is 45 mmHg. Focused Labs Anesthesia Preop lab: CBC WBC 9.8 K/mm3 (4.4-11.0) 08/14/23 05:45 RBC 2.91 M/mm3 (4.2-5.4) L 08/14/23 05:45 Hgb 8.5 g/dL (12.0-15.0) L 08/14/23 05:45 Hct 25.2 % (37-47) L 08/14/23 05:45 Plt Count 179 K/mm3 (150-450) 08/14/23 05:45 CHEMISTRY Potassium 3.1 mmol/L (3.5-5.1) L 08/14/23 05:45 Sodium 143 mmol/L (136-145) 08/14/23 05:45 Magnesium 1.9 mg/dL (1.6-2.6) 08/14/23 05:45 Phosphorus 2.3 mg/dL (2.5-4.9) L 08/14/23 05:45 BUN 28 mg/dL (7-18) H 08/14/23 05:45 Creatinine 0.42 mg/dL (0.55-1.02) L 08/14/23 05:45 Glucose 86 mg/dL (74-106) 08/14/23 05:45 TSH 0.76 uIU/mL (0.358-3.74) 03/27/23 06:47 COAG PT 16.2 SECONDS (11.7-14.9) H 08/14/23 05:45 Pre-Assessment Diagnosis/Proposed Procedure Planned Operative Procedure(s): EGD Anesthesia History Anesthesia History - nitroglycerin neutralizer: Anesthesia History - nitroglycerin neutralizer Hx Hospitalization Any Problems With Anesthesia No 08/14/23 15:33 Cholinesterase deficiency You/Your Family Experience fever (hyperthermia) with Relationship Recent Exposure to Contagious Disease Does patient have nerve No 08/14/23 15:33 stimulator Patient instructed to have device shut off --Does patient have Pacemaker No 08/14/23 15:33 or ICD? When Was Last Pacemaker Check QUESTION #4 FULL TEXT: You/Your Family Experience fever (hyperthermia) with Anesthesia Last Oral Intake Last Oral intake: Last Oral Intake NPO since 23:59 08/14/23 15:33 Meds taken in AM with sips of Yes 08/14/23 15:33 water? Meds patient instructed to take am of surgery PONV PONV - nitroglycerin neutralizer: PONV - nitroglycerin neutralizer Female HX of Motion Sickness HX of N/V After Surgery Non-Smoker Duration of Surgery greater than 60 minutes Number of Risk Factors PONV Score Height & Weight Height & Weight: Anesthesia: Height & Weight Height 5 ft 3 in 08/14/23 15:33 Weight: 57.9 kg 08/14/23 15:33 Body Mass Index (BMI) 22.6 08/14/23 15:33 Respiratory Assessment Respiratory Assessment - nitroglycerin neutralizer: Respiratory Tract Infection Hx - nitroglycerin neutralizer Hx Respiratory Tract Infection Any additional information?: No STOP Sleep Apnea STOP Sleep Apnea - nitroglycerin neutralizer: STOP Sleep Apnea - nitroglycerin neutralizer Hx Hypertension Yes: no medication needed 08/13/23 12:30 Hx Sleep Apnea No 08/13/23 12:30 CPAP BIPAP Do you snore loudly (louder No 08/13/23 12:30 than talking or can be heard Do you often feel tired/ No 08/13/23 12:30 fatigued/ sleepy during daytime? Has anyone observed you stop No 08/13/23 12:30 breathing during sleep? STOP Results Negative 08/13/23 12:30 QUESTION #5 FULL TEXT : Do you snore loudly (louder than talking or can be heard through closed doors)? 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 Specify any problems Hx of Preganancy in last 3 N/A 08/13/23 12:30 Months Nurse Filling Out Transfusion BSTEELE 08/13/23 12:30 & Questions: Date: 08/13/23 08/13/23 12:30 Time: 12:55 08/13/23 12:30 Patient unable to answer at this time (ie. confused, unrespo /Reproduction History /Reproductive History - nitroglycerin neutralizer: /Reproductive Hx- nitroglycerin neutralizer Hx Now No 08/14/23 15:33 Gestational Age (in weeks): EDC: Hx Hx Para Hx Section SAB Active Medications Active Medications: Current Medications Generic Name Dose Route Start Last Admin Trade Name Freq PRN Reason Stop Dose Admin Acetaminophen 650 mg 08/13/23 12:31 Acetaminophen 325 Mg Tablet PO Q6H PRN PRN Pain 1-10 Or Fever >100.7 Albuterol Sulfate 2.5 mg 08/13/23 12:31 Albuterol 2.5 Mg/3 Ml Vial.Neb. INHALATION Q2H PRN PRN SOB &/OR WHEEZING Albuterol/Ipratropium 3 ml 08/13/23 13:15 08/14/23 12:39 Ipratropium/Albuterol Sulfate 3 Ml Ampul.Neb INHALATION 3 ml Q6HWA.RT MARGARETTE Administration Budesonide 0.5 mg 08/13/23 13:10 08/14/23 08:22 Budesonide Respules 0.5 Mg/2 Ml Ampul.Neb. INHALATION 0.5 mg Q12H.RT MARGARETTE Administration Gabapentin 300 mg 08/13/23 22:00 08/14/23 11:56 Gabapentin 300 Mg Capsule PO 300 mg Q12 MARGARETTE Administration Pantoprazole Sodium 40 mg/ 110 mls @ 330 mls/hr 08/13/23 22:00 08/14/23 09:20 Sodium Chloride IV Infused Q12 MARGARETTE Infusion Sodium Chloride 250 mls @ 15 mls/hr 08/13/23 12:59 08/14/23 09:20 IV 15 mls/hr .[id number] PRN Administration Additional IVPB Infusion Sodium Chloride 250 mls @ 15 mls/hr 08/13/23 12:59 IV .[id number] PRN Saline Flush Potassium Phosphate 30 mm/ 260 mls @ 42 mls/hr 08/14/23 15:00 Sodium Chloride IV 08/14/23 21:11 X1 ONE Magnesium Sulfate 4 gm in 100 mls @ 25 mls/hr 08/14/23 15:00 08/14/23 15:07 IV 08/14/23 18:59 25 mls/hr X1 ONE Administration Sodium Chloride 1,000 mls @ 15 mls/hr 08/14/23 15:40 IV .Q48H MARGARETTE Melatonin 3 mg 08/13/23 12:31 Melatonin 3 Mg Tablet PO QHS PRN PRN INSOMNIA Non-Formulary Medication 200 mg 08/14/23 10:00 Itraconazole PO BID MARGARETTE Ondansetron HCl 4 mg 08/13/23 12:31 Ondansetron 4 Mg/2 Ml Vial IV Q8H PRN PRN NAUSEA/VOMITING Senna/Docusate Sodium 2 tablet 08/13/23 12:31 Senna/Docusate Sodium 1 Tablet PO BID PRN Constipation Sodium Chloride 10 - 40 ml 08/13/23 12:59 08/14/23 12:14 0.9% Saline Lock 10 Ml Syringe IV 20 ml UD PRN Administration SALINE FLUSH PFSH Medical History Severe aortic stenosis Thrombocytopenia Adult failure to thrive Leg edema Rheumatoid arthritis COPD (chronic obstructive pulmonary disease) Former smoker DVT (deep venous thrombosis) Pulmonary embolism Colitis COVID-19 Histoplasmosis Home Medications ?Medication ?Instructions ?Recorded ?Last Taken ?Type multivitamin (Daily Multi-Vitamin 1 tab PO DAILY supplement 03/19/23 08/12/23 History tablet) vitamins A,C,I-bcla-dqqxlp 2,148 2 tab PO BID eye health 03/19/23 08/12/23 History mcg-113 mg-45 mg-17.4 mg tablet (PreserVision AREDS) gabapentin 300 mg capsule 300 mg PO Q12 nerve pain #0 caps 04/05/23 08/12/23 Rx acetaminophen 500 mg tablet 1,000 mg (2 x 500 mg) PO Q6H PRN 04/27/23 Unknown Rx PRN Pain Score 1-10 #0 tabs potassium chloride 20 mEq 20 meq PO BIDCM #0 tabs 04/27/23 08/12/23 Rx tablet,extended release(part/cryst) fluticasone 250 mcg-salmeterol 50 1 ea inhalation BID 08/13/23 08/12/23 History mcg/dose blistr powdr for inhalation fluticasone propionate 50 1 spray intranasal DAILY 08/13/23 08/12/23 History mcg/actuation nasal spray,suspension furosemide 20 mg tablet 20 mg PO DAILY PRN edema 08/13/23 08/12/23 History itraconazole 10 mg/mL oral solution 200 mg PO BID 08/13/23 08/12/23 History naproxen 500 mg tablet 500 mg PO BID PRN 08/13/23 08/12/23 History prednisone 20 mg tablet 20 mg PO Q12H 08/13/23 08/12/23 History tiotropium bromide 2.5 2 puff inhalation DAILY 08/13/23 08/12/23 History mcg/actuation mist for inhalation (Spiriva Respimat) warfarin 5 mg tablet 5 mg PO SUMOTUWEFRSA 08/13/23 08/12/23 History warfarin 7.5 mg tablet (Jantoven) 7.5 mg PO TH 08/13/23 08/12/23 History Allergy/AdvReac Type Severity Reaction Status Date / Time Penicillins Allergy Severe Anaphylaxis Verified 08/13/23 14:22 Surgical History History of embolic filter insertion Hx of foot surgery Social History household members: none Smoking Status: Former smoker alcohol intake: never substance use type: does not use Review of Systems (Anesthesia) ROS Narrative System reviewed and no additional complaints, except as documented.
--- NOTE | 2023-08-14 16:30 | EGD_PTH ---
PATIENT: ALENA BUSTAMANTE LOC: [facility] U#:[id number] AGE/SX: 78/F ROOM: [facility] RE08/13/[address]: Dr. Laine Veras MD : 1945 BED: 1 DIS: 08/18/2023 SPEC #: [id number] RECD: 08/14/23 17:59 STATUS: AMMY REQ #: [id number] SHAKA: 08/14/23 16:[address]: Mathew Orellana DEPT: SURGICAL PATHOLOGY RECD BY: Esha Jordan ENTERED: 08/15/23 10:23 SP TYPE: EGD BIOPSY OTHR DR: MD Dr. Laine Flower MD Tissues: Duodenum, NOS Procedures: Surgery Specimen Level IV Comments: @ Ordering doctor for SUIV edited from to @ by GERARDO at 08/15/23 1153 @ Submitting doctor edited from to @ by GERARDO at 08/15/23 1157 HEADER OPERATION: EGD PRE-OP DIAGNOSIS: Anemia TISSUE SUBMITTED: Duodenal ulcer MICROSCOPIC DIAGNOSIS Duodenal ulcer, biopsy: A fragment of duodenal mucosa with focal erosion and fibrosis of lamina propria. See comment. JOAN/ 08/16/2023 COMMENT Clinical correlation and appropriate follow up are necessary. MICROSCOPIC DESCRIPTION Slides are reviewed. GROSS DESCRIPTION Received in fixative is one container labeled with the patient's name and designated Duodenal ulcer biopsy. The specimen consists of one irregular fragment of light odell soft tissue that measures 0.4 x 0.2 x 0.1 cm. The specimen is totally submitted in one cassette. JOAN/ 08/15/2023 TC:5 CPT:12473
--- NOTE | 2023-08-14 17:09 | PCM.POST.ANE ---
Anesthesia: Postop Eval I Current Vital Signs Temperature: 98.4 F Pulse Rate: 79 Blood Pressure: 97/52 Respiratory Rate: 18 Pulse Ox: 100 Oxygen Delivery Method: Room Air Assessment Airway patent: Yes Spontaneous unlabored respirations: Yes Mental status: Awake and Calm nausea: No Vomiting: No Anesthesia Complication: No Fluid Hydration Crystalloid volume administer (ml): 200 Total IV fluid infused: 200 Progress Note Anesthesia document: Postop Eval 1 completed: Yes
--- NOTE | 2023-08-14 17:21 | OP.EGD_ITS ---
Patient Name: Haydee Gibbs Procedure Date: 08/14/2023 4:24 PM Date of : 1945 Age: 78 Procedure: Upper GI endoscopy Indications: Active gastrointestinal bleeding Providers: Mathew Orellana DO Medicines: Monitored Anesthesia Care Patient Profile: This is a 78 year old female. Refer to note in patient chart for documentation of history and physical. Patient has symptoms of chronic abdominal cramping and acute epigastric abdominal pain. Complications: No immediate complications. Procedure: Pre-Anesthesia Assessment: - Prior to the procedure, a History and Physical was performed, and patient medications and allergies were reviewed. The patient is competent. The risks and benefits of the procedure and the sedation options and risks were discussed with the patient. All questions were answered and informed consent was obtained. Patient identification and proposed procedure were verified by the physician in the pre-procedure area. Mental Status Examination: alert and oriented. Airway Examination: normal oropharyngeal airway and neck mobility. Respiratory Examination: clear to auscultation. CV Examination: normal. Prophylactic Antibiotics: The patient does not require prophylactic antibiotics. Prior Anticoagulants: The patient has taken no anticoagulant or antiplatelet agents. ASA Grade Assessment: III - A patient with severe systemic disease. After reviewing the risks and benefits, the patient was deemed in satisfactory condition to undergo the procedure. The anesthesia plan was to use monitored anesthesia care (MAC). Immediately prior to administration of medications, the patient was re-assessed for adequacy to receive sedatives. The heart rate, respiratory rate, oxygen saturations, blood pressure, adequacy of pulmonary ventilation, and response to care were monitored throughout the procedure. The physical status of the patient was re-assessed after the procedure. After obtaining informed consent, the endoscope was passed under direct vision. Throughout the procedure, the patient's blood pressure, pulse, and oxygen saturations were monitored continuously. The Endoscope was introduced through the mouth, and advanced to the second part of duodenum. The upper GI endoscopy was accomplished without difficulty. The patient tolerated the procedure well. Scope In: 4:58:17 PM Scope Out: 5:03:35 PM Total Procedure Duration Time 0 hours 5 minutes 18 seconds Findings: The examined esophagus was normal. The entire examined stomach was normal. One oozing cratered duodenal ulcer with pigmented material was found in the duodenal bulb. The lesion was 10 mm in largest dimension. Coagulation for hemostasis using heater probe was successful. Estimated blood loss was minimal. Biopsies were taken with a cold forceps for histology. Biopsies were taken with a cold forceps for histology. Verification of patient identification for the specimen was done. Estimated blood loss was minimal. Impression: - Normal esophagus. - Normal stomach. - Oozing duodenal ulcer with pigmented material. Treated with a heater probe. Biopsied. Recommendation: - [facility] to [facility]. - Resume regular diet. - Continue present medications. - Use Prilosec (omeprazole) 40 mg PO BID for 12 weeks. - Use sucralfate tablets 1 gram PO BID. Procedure Code(s): --- Professional --- 77573, 59, Esophagogastroduodenoscopy, flexible, transoral; with control of bleeding, any method 43707, 51, Esophagogastroduodenoscopy, flexible, transoral; with biopsy, single or multiple CPT copyright 2021 [employer]. All rights reserved. The codes documented in this report are preliminary and upon remote coders review may be revised to meet current compliance requirements. Mathew Orellana DO 08/14/2023 5:21:30 PM This report has been signed electronically. Number of Addenda: 0 Note Initiated On: 08/14/2023 4:24 PM
--- NOTE | 2023-08-14 17:21 | OP.CCLET_ITS ---
08/14/2023 Deyanira Pak [address] [place] [address] Re : Upper GI endoscopy procedure for [facility] Dear Dr. Pak This procedure was performed on Monday, August 14, 2023. My impressions and recommendations are as follows: Impressions : - Normal esophagus. - Normal stomach. - Oozing duodenal ulcer with pigmented material. Treated with a heater probe. Biopsied. Recommendations : - Return patient to [facility]. - Resume regular diet. - Continue present medications. - Use Prilosec (omeprazole) 40 mg PO BID for 12 weeks. - Use sucralfate tablets 1 gram PO BID. My findings are described in the full procedure note, which is enclosed. If I can be of further assistance, please feel free to contact me at . Sincerely, Mathew Orellana, 08/14/2023 5:21:30 PM This report has been signed electronically.
[2023-08-14] MEDS: Potassium Phosphate 30 MM in 0.9% Normal Saline (250mL Bag) 250 ML 42 MM IV (17:50)
--- NOTE | 2023-08-14 19:54 | POSTOPAN2_ITS ---
Anesthesia Postop Eval I Sum Postop Eval Completion status Anesthesia document: Postop Eval 1 completed: Yes Anesthesia Postop Eval I Summary Anesthesia Postop Eval I Summary: Anesthesia Postop Eval I: Assessment Summary Airway patent Yes 08/14/23 17:10 DENTAL [email or web address] Spontaneous unlabored Yes 08/14/23 17:10 DENT[employer].CSIR respirations Mental status Awake,Calm 08/14/23 17:10 DENTAL INTERNS[employer].CSIR nausea No 08/14/23 17:10 DENTAL INTERNSHIP.CSIR Vomiting No 08/14/23 17:10 DENTAL INTERNSHIP.CSIR Anesthesia Postop Eval I: Fluid Summary Crystalloid volume administer 200 08/14/23 17:10 DENTAL INTERNSHIP.CSIR (ml) Colloids volume administered ( ml) Blood Product volume administered (ml) Total IV fluid infused 200 08/14/23 17:10 DENTAL [email or web address].CSIR Anesthesia Postop Eval I: Summary Notes Anesthesia Complication No 08/14/23 17:10 DENTAL [email or web address].CSIR Anesthesia Complication Comment: Post-operative progress note Anesthesia: Postop Eval II Evaluation Mental status: Awake Pain Level: 0 nausea: No Vomiting: No Complications Anesthesia Complication: No
--- NOTE | 2023-08-14 19:54 | PCM.POSTANE2 ---
Anesthesia Postop Eval I Sum Postop Eval Completion status Anesthesia document: Postop Eval 1 completed: Yes Anesthesia Postop Eval I Summary Anesthesia Postop Eval I Summary: Anesthesia Postop Eval I: Assessment Summary Airway patent Yes 08/14/23 17:10 [email or web address] Spontaneous unlabored Yes 08/14/23 17:10 [email or web address].CSIR respirations Mental status Awake,Calm 08/14/23 17:10 [email or web address].CSIR nausea No 08/14/23 17:10 ENCAPSULATOR.CSIR Vomiting No 08/14/23 17:10 [email or web address].CSIR Anesthesia Postop Eval I: Fluid Summary Crystalloid volume administer 200 08/14/23 17:10 [email or web address].CSIR (ml) Colloids volume administered ( ml) Blood Product volume administered (ml) Total IV fluid infused 200 08/14/23 17:10 [email or web address].CSIR Anesthesia Postop Eval I: Summary Notes Anesthesia Complication No 08/14/23 17:10 [email or web address].CSIR Anesthesia Complication Comment: Post-operative progress note Anesthesia: Postop Eval II Evaluation Mental status: Awake Pain Level: 0 nausea: No Vomiting: No Complications Anesthesia Complication: No
[2023-08-14] MEDS: ITRACONAZOLE 10 MG/ML 200 MG PO (21:08)
[2023-08-15] VITALS (7 sets, daily range): BP systolic 90–119; BP diastolic 41–64; PULSE 74–90; RESP 18–22; TEMP 36.7–36.8; O2SAT 94–100; BMI 21.2
[2023-08-15 04:24] LABS: Anion Gap 4 (5-15); BUN 14 mg/dL (7-18); BUN/Creat Ratio 26.2 RATIO (10-20); Calcium,Total 7.3 mg/dL (8.5-10.1); Chloride 107 mmol/L (98-107); Creatinine, Serum 0.54 mg/dL (0.55-1.02); EST Glomerular Filtration Rate 118 mL/min (>60); Est Glom Filt Rate - Afr Amer 143 mL/min (>60); Estimated Creatinine Clearance 49.49 ml/min; Glucose 96 mg/dL (74-106); Potassium 3.9 mmol/L (3.5-5.1); Sodium Level 140 mmol/L (136-145)
[2023-08-15 04:52] LABS: Absolute Neutrophil Count 7.6 X10^3/uL (2.0-7.7); Basophil# 0.03 X10^3/uL; Basophil% 0.3 % (0-1); Eosinophil# 0.19 X10^3/uL; Eosinophils% 1.9 % (0-5); Hematocrit 22.5 % (37-47); Hemoglobin 7.3 g/dL (12.0-15.0); Mean Corp Hgb Conc 32.4 g/dL (32-36); Mean Corpuscular Hgb 28.3 pg (27.0-32.0); Mean Corpuscular Volume 87.2 fL (81-99); Mean Platelet Vol. 10.6 fl (6.2-12.0); Monocyte# 1.13 X10^3/uL; Monocyte% 11.3 % (0-10); NRBC Flagged by Analyzer 0 % (0-5); Neutrophil # 7.63 X10^3/uL (2.7-7.7); Neutrophil % 76.5 % (47-70); Platelet Count 207 K/mm3 (150-450); RBC Distribution Width CV 18.6 % (11.6-14.6); RBC Distribution Width SD 56.8 fl (35.1-43.9); Red Blood Count 2.58 M/mm3 (4.2-5.4)
[2023-08-15] MEDS: Budesonide Respules 0.5 MG/2 ML AMPUL.NEB. INHALATION ×2 (07:05→19:31)
[2023-08-15] MEDS: Ipratropium/Albuterol Sulfate 3 ML AMPUL.NEB INHALATION ×3 (07:05→19:31)
[2023-08-15] MEDS: ITRACONAZOLE 10 MG/ML 200 MG PO ×2 (08:04→21:35)
[2023-08-15] MEDS: Acetaminophen 325 MG Tablet 650 MG PO ×2 (08:08→18:28)
[2023-08-15] MEDS: Pantoprazole Sodium 40 MG Tablet PO ×2 (08:08→21:35)
[2023-08-15] MEDS: Gabapentin 300 MG Capsule PO ×2 (08:09→21:35)
--- NOTE | 2023-08-15 11:04 | PN.HOSP_ITS ---
Reason for Visit Reason for Visit: Diagnoses Histoplasmosis, unspecified (08/13/23) Acute posthemorrhagic anemia (08/13/23) Nonrheumatic aortic (valve) stenosis (08/13/23) Chronic obstructive pulmonary disease, unspecified (08/13/23) Rheumatoid arthritis, unspecified (08/13/23) Weakness (08/13/23) Personal history of other venous thrombosis and embolism (08/13/23) Subjective Subjective Feeling much better, no dizziness, no further bleeding, patient up in chair and excited to eat Objective Data Objective Data Vital Signs: Vital Signs Temp Pulse Resp BP Pulse Ox O2 Del Method 99 F 80 21 H 86/61 L 94 Room Air 08/14/23 20:11 08/15/23 07:05 08/15/23 07:05 08/14/23 20:11 08/15/23 07:05 08/15/23 07:05 Oxygen Delivery Method Room Air Weight: 54.2 kg Body Mass Index (BMI) 21.2 Intake & Output: Intake and Output for Last 24 Hours 08/13/23 08/14/23 08/15/23 23:59 23:59 23:59 Intake Total 2188.5 / 2188.5 930 / 930 740 / 740 Output Total 2049 / 2049 4650 / 4650 Balance 138.5 / 138.5 -3720 / -3720 740 / 740 Lab / Micro Data 08/15/23 04:45 08/15/23 03:55 Labs: Laboratory Results - last 24 hr 08/13/23 09:45: Diff Path Review Reviewed 08/14/23 05:45: Phosphorus 2.3 L, Magnesium 1.9 08/15/23 03:55: WBC Cancelled, Corrected WBC Cancelled, RBC Cancelled, Hgb Cancelled, Hct Cancelled, MCV Cancelled, MCH Cancelled, MCHC Cancelled, RDW Std Deviation Cancelled, RDW Coeff of Catarino Cancelled, Plt Count Cancelled, MPV Cancelled, Immature Gran % (Auto) Cancelled, Neut % (Auto) Cancelled, Lymph % (Auto) Cancelled, Warren % (Auto) Cancelled, Eos % (Auto) Cancelled, Baso % (Auto) Cancelled, Absolute Neuts (auto) Cancelled, Absolute Lymphs (auto) Cancelled, Total Counted Cancelled, Neutrophils % (Manual) Cancelled, Band Neutrophils % Cancelled, Lymphocytes % (Manual) Cancelled, Monocytes % (Manual) Cancelled, Eosinophils % (Manual) Cancelled, Basophils % (Manual) Cancelled, Metamyelocytes % Cancelled, Myelocytes % Cancelled, Promyelocytes % Cancelled, Blast Cells % Cancelled, Plasma Cell % (Manual) Cancelled, Other Cells % Cancelled, Nucleated RBC % Cancelled, Nucleated RBCs/100 WBC Cancelled, Differential Comment Cancelled, Diff Path Review Cancelled, Hypersegmented Neuts Cancelled, Atypical Lymphocytes Cancelled, Reactive Lymphocytes Cancelled, Smudge Cells Cancelled, Toxic Granulation Cancelled, Toxic Vacuolation Cancelled, Dohle Bodies Cancelled, Jaswinder Rods Cancelled, Platelet Estimate Cancelled, Plt Morphology Comment Cancelled, RBC Morphology Cancelled 08/15/23 03:55: RBC Morphology Cancelled, Polychromasia Cancelled, Hypochromasia Cancelled, Basophilic Stippling Cancelled, Anisocytosis Cancelled, Microcytosis Cancelled, Macrocytosis Cancelled, Spherocytes Cancelled, Sickle Cells Cancelled, Target Cells Cancelled, Tear Drop Cells Cancelled, Ovalocytes Cancelled, Stomatocytes Cancelled, [place] Bodies Cancelled, Ayaan Cells Cancelled, Bite Cells Cancelled, Crenated Cell Cancelled, Acanthocytes (Spur) Cancelled, Rouleaux Cancelled, Schistocytes Cancelled, Sodium 140, Potassium 3.9, Chloride 107, Carbon Dioxide 29.0, Anion Gap 4 L, BUN 14, Creatinine 0.54 L , Estim Creat Clear Calc 49.49, Est GFR (MDRD) Af Amer 143, Est GFR (MDRD) Non- Af 118, BUN/Creatinine Ratio 26.2 H, Glucose 96, Calcium 7.3 L 08/15/23 04:45: WBC 10.0, RBC 2.58 L, Hgb 7.3 L, Hct 22.5 L, MCV 87.2, MCH 28.3, MCHC 32.4, RDW Std Deviation 56.8 H, RDW Coeff of Catarino 18.6 H, Plt Count 207, MPV 10.6, Immature Gran % (Auto) 1.000 H, Neut % (Auto) 76.5 H, Lymph % (Auto) 9.0 L , Warren % (Auto) 11.3 H, Eos % (Auto) 1.9, Baso % (Auto) 0.3, Absolute Neuts (auto) 7.6, Absolute Lymphs (auto) 0.90, Nucleated RBC % 0 Micro: Microbiology 08/13/23 10:02 Stool Stool Occult Blood (JACKIE) - Final Occult Blood Positive Rhythm Strip Rhythm Strip: Sinus Rhythm Rate: 95 Ectopy: None Physical Exam Narrative General: Alert, oriented, no apparent distress HEENT: Atraumatic, normocephalic Eyes: Anicteric, normal conjunctiva, extraocular movements grossly intact Neck: Supple Respiratory: Clear to auscultation bilaterally, normal respiratory effort Cardiovascular: Regular rate and rhythm, harsh systolic murmur diffusely GI: Soft, nontender, nondistended Extremities: No edema Musculoskeletal: Moving all extremities Neuro: No overt focal neurological deficits Skin: No rashes appreciated Psych: Cooperative Assessment & Plan Assessment/Plan (1) ABLA (acute blood loss anemia): (2) COPD (chronic obstructive pulmonary disease): (3) Histoplasmosis: (4) History of DVT (deep vein thrombosis): (5) Rheumatoid arthritis: (6) Weakness: (7) Severe aortic stenosis: PLAN: Plan #Acute on chronic anemia- ABLA from GI bleed -Patient with black tarry and bloody stools since yesterday -Possibly secondary to supratherapeutic INR and per home med list patient is on naproxen twice daily, hold naproxen -symptomatic with syncopal episode in ED -No further bleeding in ED -Hemoglobin 5.4 with a baseline between 9 and 10 -2 units packed red blood cells ordered -Npo -Trend H&H -Supratherapeutic on Coumadin with an INR of 4.8, vitamin K given in ED and FFP ordered, Coumadin held -IV PPI -GI c/s -08/13: Vitamin K given yesterday, FFP had been ordered but was not given, received 3 units packed red blood cells and hemoglobin is improved, has not bled since arrival so we will transfer out of ICU, discussed with GI, patient will likely need endoscopy, patient n.p.o. -08/14: No further active signs of bleeding, hemoglobin 7.3 continue PPI Sucralfate # Syncopal episode/severe aortic stenosis -Orthostatic versus vasovagal -Given hemoglobin and blood loss with syncopal event when sitting up patient to be admitted to ICU -In ED patient was up on bedside commode and suddenly slumped to the side and had decreased level consciousness -By the time patient got back to the bed she was responding verbally to sternal rub, systolic pressure in the 90s, patient had pulse and recovered after several minutes of laying flat -Bedrest at this time -1 L IV fluid and blood being hung at this time -Management of GI bleed as above -Patient had echocardiogram several months ago which demonstrated EF of 70% and severe aortic stenosis, volume depletion with her severe aortic stenosis seems to be most likely culprit for the syncopal episode in ED -08/13: No further syncopal episodes and symptoms improved with blood and bedrest -08/14: BP somewhat low however patient asymptomatic and reports she is chronically low, has been n.p.o. for 2 days given her bleeding and need for scope suspect she is dry, will give small fluid bolus #Fall at home -Fill x 2 at home, unclear if this was due to weakness or other syncopal episodes -PT/OT -Treat volume depletion -Able to move both knees, can consider x-ray if any increased pain or no improvement -Tylenol as needed -May need to add pain medication but would be potentially limited by blood pressure -08/13: Reports she is not presently having any pain and feels much better than she did at home -08/14: Awaiting PT/OT, patient does well she will go home if not needed discussed placement #Hx DVTs/IVC filter/Supratherapeutic INR -INR 4.8 -Coumadin held, vitamin K given and FFP ordered in ED -Daily INR -SCDs for DVT prophylaxis -08/13: Continue SCDs, patient has complex history given her clotting and bleeding, discussed with GI and pending scope may need to continue to hold Coumadin and have this resumed at discretion of her outpatient provider if she does not have further bleeding after weighing risks and benefits, does have permanent IVC filter in place -08/14: Discussed with GI, will resume Coumadin given her clot risk and resume at lower dose, INR daily #COPD -Continue home inhalers -08/14: Breathing well with no acute complaints #Leukocytosis?resolved -Patient reports recently being on steroids though unclear indication, this is likely the cause of her elevated white blood cell count and she has no other infectious signs or symptoms -08/13: Leukocytosis resolved without any antibiotics, low suspicion for anything infectious -08/14: Resolved #Hx RA -Not on treatment presently due to being treated for histoplasmosis -08/13: Was on a prednisone taper for her RA however reports having no pain and overall feels better than she did -08/14: Intermittently has some pain in her joints #Hx histoplasmosis -Patient had been on itraconazole, unclear if she still taking her stop date, patient fairly poor historian in ED -Will need to clarify this -08/13: Is still on itraconazole, this has been reordered #DVT ppx: SCDs Laine Veras MD Time spent in the patient's overall evaluation,decision-making process, review of diagnostic data, adjustment of management, discussion with other providers, nursing nursing and ancillary staff involved in patient's care documentation, 36 Minutes Charges/Coding Visit Charges Inpatient E&M: 84935 Subs Hosp L2
[2023-08-15] MEDS: 0.9% Normal Saline (500mL Bag) 500 ML 999 ML IV (11:14)
[2023-08-15] MEDS: Sucralfate 1 GM Tablet PO (16:01)
--- NOTE | 2023-08-15 17:52 | PN.GI_ITS ---
Subjective Subjective Patient is doing very well and tolerating a diet. She has not suffered any side effects from anesthesia. She denies any abdominal pain or melanotic stools. She has had no more episodes of hypotension. Objective Data Objective Data Vital Signs: Vital Signs Temp Pulse Resp BP Pulse Ox O2 Del Method 98.2 F 83 22 H 90/41 L 100 Room Air 08/15/23 12:32 08/15/23 12:58 08/15/23 12:58 08/15/23 12:32 08/15/23 12:32 08/15/23 12:32 Oxygen Delivery Method Room Air Weight: 119 lb 7.849 oz Body Mass Index (BMI) 21.2 Intake & Output: Intake and Output for Last 24 Hours 08/13/23 08/14/23 08/15/23 23:59 23:59 23:59 Intake Total 2188.5 / 2188.5 930 / 930 1240 / 1240 Output Total 2050 / 2050 4650 / 4650 450 / 450 Balance 138.5 / 138.5 -3720 / -3720 790 / 790 Lab / Micro Data 08/15/23 04:45 08/15/23 03:55 Labs: Laboratory Results - last 24 hr 08/15/23 03:55: WBC Cancelled, Corrected WBC Cancelled, RBC Cancelled, Hgb Cancelled, Hct Cancelled, MCV Cancelled, MCH Cancelled, MCHC Cancelled, RDW Std Deviation Cancelled, RDW Coeff of Catarino Cancelled, Plt Count Cancelled, MPV Cancelled, Immature Gran % (Auto) Cancelled, Neut % (Auto) Cancelled, Lymph % (Auto) Cancelled, [place] % (Auto) Cancelled, Eos % (Auto) Cancelled, Baso % (Auto) Cancelled, Absolute Neuts (auto) Cancelled, Absolute Lymphs (auto) Cancelled, Total Counted Cancelled, Neutrophils % (Manual) Cancelled, Band Neutrophils % Cancelled, Lymphocytes % (Manual) Cancelled, Monocytes % (Manual) Cancelled, Eosinophils % (Manual) Cancelled, Basophils % (Manual) Cancelled, Metamyelocytes % Cancelled, Myelocytes % Cancelled, Promyelocytes % Cancelled, Blast Cells % Cancelled, Plasma Cell % (Manual) Cancelled, Other Cells % Cancelled, Nucleated RBC % Cancelled, Nucleated RBCs/100 WBC Cancelled, Differential Comment Cancelled, Diff Path Review Cancelled, Hypersegmented Neuts Cancelled, Atypical Lymphocytes Cancelled, Reactive Lymphocytes Cancelled, Smudge Cells Cancelled, Toxic Granulation Cancelled, Toxic Vacuolation Cancelled, Dohle Bodies Cancelled, Jaswinder Rods Cancelled, Platelet Estimate Cancelled, Plt Morphology Comment Cancelled, RBC Morphology Cancelled 08/15/23 03:55: RBC Morphology Cancelled, Polychromasia Cancelled, Hypochromasia Cancelled, Basophilic Stippling Cancelled, Anisocytosis Cancelled, Microcytosis Cancelled, Macrocytosis Cancelled, Spherocytes Cancelled, Sickle Cells Cancelled, Target Cells Cancelled, Tear Drop Cells Cancelled, Ovalocytes Cancelled, Stomatocytes Cancelled, Barba-[place] Bodies Cancelled, Ayaan Cells Cancelled, Bite Cells Cancelled, Crenated Cell Cancelled, Acanthocytes (Spur) Cancelled, Rouleaux Cancelled, Schistocytes Cancelled, Sodium 140, Potassium 3.9, Chloride 107, Carbon Dioxide 29.0, Anion Gap 4 L, BUN 14, Creatinine 0.54 L , Estim Creat Clear Calc 49.49, Est GFR (MDRD) Af Amer 143, Est GFR (MDRD) Non- Af 118, BUN/Creatinine Ratio 26.2 H, Glucose 96, Calcium 7.3 L 08/15/23 04:45: WBC 10.0, RBC 2.58 L, Hgb 7.3 L, Hct 22.5 L, MCV 87.2, MCH 28.3, MCHC 32.4, RDW Std Deviation 56.8 H, RDW Coeff of Catarino 18.6 H, Plt Count 207, MPV 10.6, Immature Gran % (Auto) 1.000 H, Neut % (Auto) 76.5 H, Lymph % (Auto) 9.0 L , [place] % (Auto) 11.3 H, Eos % (Auto) 1.9, Baso % (Auto) 0.3, Absolute Neuts (auto) 7.6, Absolute Lymphs (auto) 0.90, Nucleated RBC % 0 Micro: Microbiology 08/13/23 10:02 Stool Stool Occult Blood (JACKIE) - Final Occult Blood Positive Rhythm Strip Rhythm Strip: Sinus Rhythm Rate: 95 Ectopy: None Physical Exam Narrative General: Alert, oriented, no apparent distress HEENT: Atraumatic, normocephalic Eyes: Anicteric, normal conjunctiva, extraocular movements grossly intact Neck: Supple Respiratory: Clear to auscultation bilaterally, normal respiratory effort Cardiovascular: Regular rate and rhythm, harsh systolic murmur diffusely GI: Soft, nontender, nondistended Extremities: No edema Musculoskeletal: Moving all extremities Neuro: No overt focal neurological deficits Skin: No rashes appreciated Psych: Cooperative Assessment & Plan Assessment/Plan (1) ABLA (acute blood loss anemia): (2) COPD (chronic obstructive pulmonary disease): (3) Histoplasmosis: (4) History of DVT (deep vein thrombosis): (5) Rheumatoid arthritis: (6) Weakness: (7) Severe aortic stenosis: PLAN: Plan 78-year-old with multiple medical problems including severe aortic stenosis, COPD, chronic thrombocytopenia and anemia with history of multiple DVTs status post IVC filter on anticoagulation who developed a syncopal episode after having black tarry and bloody stools since yesterday. She does have supratherapeutic INR. Her was Hemoglobin 5.4 with a baseline between 9 and 10. She Will receive 2 units packed red blood cells ,vitamin K given in ED and FFP ordered, Coumadin held. Patient underwent upper endoscopy yesterday. Findings: The examined esophagus was normal. The entire examined stomach was normal. One oozing cratered duodenal ulcer with pigmented material was found in the duodenal bulb. The lesion was 10 mm in largest dimension. Coagulation for hemostasis using heater probe was successful. Estimated blood loss was minimal. Biopsies were taken with a cold forceps for histology. Biopsies were taken with a cold forceps for histology. Verification of patient identification for the specimen was done. Estimated blood loss was minimal. Impression: - Normal esophagus. - Normal stomach. - Oozing duodenal ulcer with pigmented material. Treated with a heater probe. Biopsied. Recommendation: - [facility]. - Resume regular diet. - Continue present medications. - Use Prilosec (omeprazole) 40 mg PO BID for 12 weeks. - Use sucralfate tablets 1 gram PO BID. Patient will need a repeat upper endoscopy in approximately 3 months after being on maximal acid suppression. Okay to restart anticoagulation. Charges/Coding Visit Charges Inpatient E&M: 70136 [facility] L3
[2023-08-16] VITALS (7 sets, daily range): BP systolic 91–110; BP diastolic 46–67; PULSE 77–96; RESP 16–18; TEMP 36.7–37.4; O2SAT 95–100
[2023-08-16 04:42] LABS: Absolute Lymphocyte Count 0.87 X10^3/uL (0.83-4.51); Absolute Neutrophil Count 7.6 X10^3/uL (2.0-7.7); Basophil# 0.02 X10^3/uL; Basophil% 0.2 % (0-1); Eosinophil# 0.11 X10^3/uL; Eosinophils% 1.1 % (0-5); Hematocrit 22.2 % (37-47); Hemoglobin 7.2 g/dL (12.0-15.0); Lymphocyte # 0.87 X10^3/ul (0.83-4.51); Lymphocyte % 8.9 % (19-41); Mean Corp Hgb Conc 32.4 g/dL (32-36); Mean Corpuscular Hgb 29.1 pg (27.0-32.0); Mean Corpuscular Volume 89.9 fL (81-99); Mean Platelet Vol. 9.9 fl (6.2-12.0); Monocyte% 11.3 % (0-10); NRBC Flagged by Analyzer 0 % (0-5); Neutrophil # 7.55 X10^3/uL (2.7-7.7); Neutrophil % 77.5 % (47-70); Platelet Count 193 K/mm3 (150-450); RBC Distribution Width CV 19.7 % (11.6-14.6); RBC Distribution Width SD 58.8 fl (35.1-43.9); Red Blood Count 2.47 M/mm3 (4.2-5.4); White Blood Count 9.8 K/mm3 (4.4-11.0)
[2023-08-16 05:03] LABS: International Normalized Ratio 1.2; Prothrombin Time (Protime)PT. 14.9 SECONDS (11.7-14.9)
[2023-08-16 05:06] LABS: Anion Gap 4 (5-15); BUN 24 mg/dL (7-18); BUN/Creat Ratio 38.6 RATIO (10-20); Calcium,Total 7.7 mg/dL (8.5-10.1); Chloride 107 mmol/L (98-107); Creatinine, Serum 0.62 mg/dL (0.55-1.02); EST Glomerular Filtration Rate 99 mL/min (>60); Est Glom Filt Rate - Afr Amer 120 mL/min (>60); Estimated Creatinine Clearance 49.49 ml/min; Glucose 127 mg/dL (74-106); Potassium 3.8 mmol/L (3.5-5.1); Sodium Level 139 mmol/L (136-145)
[2023-08-16] MEDS: Sucralfate 1 GM Tablet PO ×2 (06:01→16:00)
[2023-08-16] MEDS: Acetaminophen 325 MG Tablet 650 MG PO (06:54)
[2023-08-16] MEDS: Pantoprazole Sodium 40 MG Tablet PO ×2 (08:59→22:46)
[2023-08-16] MEDS: Gabapentin 300 MG Capsule PO ×2 (08:59→22:46)
[2023-08-16] MEDS: ITRACONAZOLE 10 MG/ML 200 MG PO ×2 (08:59→19:51)
[2023-08-16 11:15] LABS: Hematocrit 24.2 % (37-47); Hemoglobin 7.7 g/dL (12.0-15.0)
[2023-08-16] MEDS: Ipratropium/Albuterol Sulfate 3 ML AMPUL.NEB INHALATION ×2 (13:09→20:38)
--- NOTE | 2023-08-16 17:04 | PN.HOSP_ITS ---
Reason for Visit Reason for Visit: Diagnoses Histoplasmosis, unspecified (08/13/23) Acute posthemorrhagic anemia (08/13/23) Nonrheumatic aortic (valve) stenosis (08/13/23) Chronic obstructive pulmonary disease, unspecified (08/13/23) Rheumatoid arthritis, unspecified (08/13/23) Weakness (08/13/23) Personal history of other venous thrombosis and embolism (08/13/23) Subjective Subjective Patient had been feeling better however this morning had large bowel movement that was not just black but also had maroon Objective Data Objective Data Vital Signs: Vital Signs Temp Pulse Resp BP Pulse Ox O2 Del Method 98.4 F 87 16 104/51 L 100 Room Air 08/16/23 13:28 08/16/23 13:28 08/16/23 13:28 08/16/23 13:28 08/16/23 13:28 08/16/23 13:28 Oxygen Delivery Method Room Air Weight: 54.2 kg Body Mass Index (BMI) 21.2 Intake & Output: Intake and Output for Last 24 Hours 08/14/23 08/15/23 08/16/23 23:59 23:59 23:59 Intake Total 930 / 930 1360 / 1360 480 / 480 Output Total 4650 / 4650 450 / 450 Balance -3720 / -3720 910 / 910 480 / 480 Lab / Micro Data 08/16/23 11:06 08/16/23 04:36 Labs: Laboratory Results - last 24 hr 08/13/23 10:00: Crossmatch See Detail 08/16/23 04:36: WBC 9.8, RBC 2.47 L, Hgb 7.2 L, Hct 22.2 L, MCV 89.9, MCH 29.1, MCHC 32.4, RDW Std Deviation 58.8 H, RDW Coeff of Catarino 19.7 H, Plt Count 193, MPV 9.9, Immature Gran % (Auto) 1.000 H, Neut % (Auto) 77.5 H, Lymph % (Auto) 8.9 L, [place] % (Auto) 11.3 H, Eos % (Auto) 1.1, Baso % (Auto) 0.2, Absolute Neuts (auto) 7.6, Absolute Lymphs (auto) 0.87, Nucleated RBC % 0, PT 14.9, INR 1.2, Sodium 139, Potassium 3.8, Chloride 107, Carbon Dioxide 28.0, Anion Gap 4 L, BUN 24 H, Creatinine 0.62, Estim Creat Clear Calc 49.49, Est GFR (MDRD) Af Amer 120, Est GFR (MDRD) Non-Af 99, BUN/Creatinine Ratio 38.6 H, Glucose 127 H, Calcium 7.7 L 08/16/23 11:06: Hgb 7.7 L, Hct 24.2 L Micro: Microbiology 08/13/23 10:02 Stool Stool Occult Blood (JACKIE) - Final Occult Blood Positive Rhythm Strip Rhythm Strip: Sinus Rhythm Rate: 95 Ectopy: None Physical Exam Narrative General: Alert, oriented, no apparent distress HEENT: Atraumatic, normocephalic Eyes: Anicteric, normal conjunctiva, extraocular movements grossly intact Neck: Supple Respiratory: Clear to auscultation bilaterally, normal respiratory effort Cardiovascular: Regular rate and rhythm, harsh systolic murmur diffusely GI: Soft, nontender, nondistended Extremities: No edema Musculoskeletal: Moving all extremities Neuro: No overt focal neurological deficits Skin: No rashes appreciated Psych: Cooperative Assessment & Plan Assessment/Plan (1) ABLA (acute blood loss anemia): (2) COPD (chronic obstructive pulmonary disease): (3) Histoplasmosis: (4) History of DVT (deep vein thrombosis): (5) Rheumatoid arthritis: (6) Weakness: (7) Severe aortic stenosis: PLAN: Plan #Acute on chronic anemia- ABLA from GI bleed -Patient with black tarry and bloody stools since yesterday -Possibly secondary to supratherapeutic INR and per home med list patient is on naproxen twice daily, hold naproxen -symptomatic with syncopal episode in ED -No further bleeding in ED -Hemoglobin 5.4 with a baseline between 9 and 10 -2 units packed red blood cells ordered -Npo -Trend H&H -Supratherapeutic on Coumadin with an INR of 4.8, vitamin K given in ED and FFP ordered, Coumadin held -IV PPI -GI c/s -08/13: Vitamin K given yesterday, FFP had been ordered but was not given, received 3 units packed red blood cells and hemoglobin is improved, has not bled since arrival so we will transfer out of ICU, discussed with GI, patient will likely need endoscopy, patient n.p.o. -08/14: No further active signs of bleeding, hemoglobin 7.3 continue PPI Sucralfate -08/15: Hemoglobin similar to yesterday but patient had large bowel movement with maroon-colored stool and given her GI bleed presentation and history asked that GI be renotified, hold Xarelto, repeat hemoglobin was still stable at this time, advised patient be cautious upon standing when getting up and to let us know if she has any lightheadedness or other concerns. Patient remains on pantoprazole and Carafate # Syncopal episode/severe aortic stenosis -Orthostatic versus vasovagal -Given hemoglobin and blood loss with syncopal event when sitting up patient to be admitted to ICU -In ED patient was up on bedside commode and suddenly slumped to the side and had decreased level consciousness -By the time patient got back to the bed she was responding verbally to sternal rub, systolic pressure in the 90s, patient had pulse and recovered after several minutes of laying flat -Bedrest at this time -1 L IV fluid and blood being hung at this time -Management of GI bleed as above -Patient had echocardiogram several months ago which demonstrated EF of 70% and severe aortic stenosis, volume depletion with her severe aortic stenosis seems to be most likely culprit for the syncopal episode in ED -08/13: No further syncopal episodes and symptoms improved with blood and bedrest -08/14: BP somewhat low however patient asymptomatic and reports she is chronically low, has been n.p.o. for 2 days given her bleeding and need for scope suspect she is dry, will give small fluid bolus -08/15: Patient has been asymptomatic #Fall at home -Fill x 2 at home, unclear if this was due to weakness or other syncopal episodes -PT/OT -Treat volume depletion -Able to move both knees, can consider x-ray if any increased pain or no improvement -Tylenol as needed -May need to add pain medication but would be potentially limited by blood pressure -08/13: Reports she is not presently having any pain and feels much better than she did at home -08/14: Awaiting PT/OT, patient does well she will go home if not needed discussed placement -08/15: Did very well with PT/OT, patient able to be discharged home soon likely will not need placement #Hx DVTs/IVC filter/Supratherapeutic INR -INR 4.8 -Coumadin held, vitamin K given and FFP ordered in ED -Daily INR -SCDs for DVT prophylaxis -08/13: Continue SCDs, patient has complex history given her clotting and bleeding, discussed with GI and pending scope may need to continue to hold Coumadin and have this resumed at discretion of her outpatient provider if she does not have further bleeding after weighing risks and benefits, does have permanent IVC filter in place -08/14: Discussed with GI, will resume Coumadin given her clot risk and resume at lower dose, INR daily -08/15: Given concern for rebleed patient left Coumadin held again #COPD -Continue home inhalers -08/14: Breathing well with no acute complaints #Hx RA -Not on treatment presently due to being treated for histoplasmosis -08/13: Was on a prednisone taper for her RA however reports having no pain and overall feels better than she did -08/14: Intermittently has some pain in her joints -08/15: Reports pain in her knees has been increasing now that she is off the prednisone, will try topical arthritis compound and scheduled Tylenol and if this does not work may need to consider resuming her prednisone as this is what has worked for her in the past and she was on it prior to admission #Hx histoplasmosis -Patient had been on itraconazole, unclear if she still taking her stop date, patient fairly poor historian in ED -Will need to clarify this -08/13: Is still on itraconazole, this has been reordered #DVT ppx: SCDs Laine Veras MD Time spent in the patient's overall evaluation,decision-making process, review of diagnostic data, adjustment of management, discussion with other providers, nursing nursing and ancillary staff involved in patient's care documentation, 38 Minutes Charges/Coding Visit Charges Inpatient E&M: 56733 Subs Hosp L2
--- NOTE | 2023-08-16 17:55 | CT_ITS ---
INDICATION: GI bleed EXAMINATION: CTA abdomen and pelvis - TECHNIQUE: Routine abdominal CT angiogram protocol was performed with IV contrast. MIP images provided. A radiation dose optimization technique was used for this scan. IV Contrast dosage and agent: Radiation dose DLP mGy / cm. COMPARISON: March 19, 2023 report only FINDINGS: Lung bases: No acute infiltration. There is a 9 mm nodular density with tiny focus of calcification in the left lower lobe. Heart is normal in size. There is a small pericardial effusion Liver: Diffusely fatty infiltrated liver without mass or bile dilatation.. Gallbladder: Contracted thick-walled gallbladder with tiny stones possibly physiologic however if concern for gallbladder disease ultrasound recommended Spleen: Normal. Adrenal gland: Normal. Kidneys: Normal. No hydronephrosis or stone formation. Pancreas:Normal. Bowel gas pattern: Nonspecific marked gastric distention with retained secretions and distended post bulbar duodenum with narrowed transverse segment of uncertain etiology or clinical significance but may be consistent with findings of superior mesenteric artery syndrome.. Normal small bowel. There is diffuse fecal retention noted within the colon. Minor diverticular changes of the colon without evidence for acute diverticulitis Appendix: No evidence for acute appendicitis Free air: None. Free fluid: None. Pelvis: Pelvic organs: No mass lesion noted. Bone survey: No aggressive bony lesions. No acute fractures. Lumbar spine demonstrates scoliosis and degenerative change. Grade 1 spondylolisthesis at L4-5 Adenopathy: No significant pathologic adenopathy detected. Other: None. Vascular: Mild atherosclerotic changes of the aorta and common iliac arteries without evidence for aneurysm. Inferior vena caval filter is noted. CT/CTA Abd/Pelvis W/WO Contrast IMPRESSION: Findings which may be consistent with changes of superior mesenteric artery syndrome No evidence for small bowel obstruction. Contracted gallbladder with tiny stones without evidence for acute inflammation. There is no contrast accumulation within the bowel to suggest acute intraluminal hemorrhage at this time Radionuclide tagged blood cells study would be helpful for further evaluation if clinically warranted. Other findings as above Electronically Signed: Demetris Manzo MD at 18:48 EDT ,
--- NOTE | 2023-08-16 18:29 | EX.PCM.PN.GI ---
Subjective Subjective Patient was ready to be discharged home today and had lower GI bleeding. Repeat hemoglobin is about the same. Objective Data Objective Data Vital Signs: Vital Signs Temp Pulse Resp BP Pulse Ox O2 Del Method 98.4 F 87 16 104/51 L 100 Room Air 08/16/23 13:28 08/16/23 13:28 08/16/23 13:28 08/16/23 13:28 08/16/23 13:28 08/16/23 13:28 Oxygen Delivery Method Room Air Weight: 119 lb 7.849 oz Body Mass Index (BMI) 21.2 Intake & Output: Intake and Output for Last 24 Hours 08/14/23 08/15/23 08/16/23 23:59 23:59 23:59 Intake Total 930 / 930 1360 / 1360 780 / 780 Output Total 4650 / 4650 450 / 450 Balance -3720 / -3720 910 / 910 780 / 780 Lab / Micro Data 08/16/23 11:06 08/16/23 04:36 Labs: Laboratory Results - last 24 hr 08/13/23 10:00: Crossmatch See Detail 08/16/23 04:36: WBC 9.8, RBC 2.47 L, Hgb 7.2 L, Hct 22.2 L, MCV 89.9, MCH 29.1, MCHC 32.4, RDW Std Deviation 58.8 H, RDW Coeff of Catarino 19.7 H, Plt Count 193, MPV 9.9, Immature Gran % (Auto) 1.000 H, Neut % (Auto) 77.5 H, Lymph % (Auto) 8.9 L, [place] % (Auto) 11.3 H, Eos % (Auto) 1.1, Baso % (Auto) 0.2, Absolute Neuts (auto) 7.6, Absolute Lymphs (auto) 0.87, Nucleated RBC % 0, PT 14.9, INR 1.2, Sodium 139, Potassium 3.8, Chloride 107, Carbon Dioxide 28.0, Anion Gap 4 L, BUN 24 H, Creatinine 0.62, Estim Creat Clear Calc 49.49, Est GFR (MDRD) Af Amer 120, Est GFR (MDRD) Non-Af 99, BUN/Creatinine Ratio 38.6 H, Glucose 127 H, Calcium 7.7 L 08/16/23 11:06: Hgb 7.7 L, Hct 24.2 L Micro: Microbiology 08/13/23 10:02 Stool Stool Occult Blood (JACKIE) - Final Occult Blood Positive Rhythm Strip Rhythm Strip: Sinus Rhythm Rate: 95 Ectopy: None Physical Exam Narrative General: Alert, oriented, no apparent distress HEENT: Atraumatic, normocephalic Eyes: Anicteric, normal conjunctiva, extraocular movements grossly intact Neck: Supple Respiratory: Clear to auscultation bilaterally, normal respiratory effort Cardiovascular: Regular rate and rhythm, harsh systolic murmur diffusely GI: Soft, nontender, nondistended Extremities: No edema Musculoskeletal: Moving all extremities Neuro: No overt focal neurological deficits Skin: No rashes appreciated Psych: Cooperative Assessment & Plan Assessment/Plan (1) ABLA (acute blood loss anemia): (2) COPD (chronic obstructive pulmonary disease): (3) Histoplasmosis: (4) History of DVT (deep vein thrombosis): (5) Rheumatoid arthritis: (6) Weakness: (7) Severe aortic stenosis: PLAN: Plan 78-year-old with multiple medical problems including severe aortic stenosis, COPD, chronic thrombocytopenia and anemia with history of multiple DVTs status post IVC filter on anticoagulation who developed a syncopal episode after having black tarry and bloody stools since yesterday. She does have supratherapeutic INR. Her was Hemoglobin 5.4 with a baseline between 9 and 10. She Will receive 2 units packed red blood cells ,vitamin K given in ED and FFP ordered, Coumadin held. Patient underwent upper endoscopy yesterday. Findings: The examined esophagus was normal. The entire examined stomach was normal. One oozing cratered duodenal ulcer with pigmented material was found in the duodenal bulb. The lesion was 10 mm in largest dimension. Coagulation for hemostasis using heater probe was successful. Estimated blood loss was minimal. Biopsies were taken with a cold forceps for histology. Biopsies were taken with a cold forceps for histology. Verification of patient identification for the specimen was done. Estimated blood loss was minimal. Impression: - Normal esophagus. - Normal stomach. - Oozing duodenal ulcer with pigmented material. Treated with a heater probe. Biopsied. Recommendation: - [facility] patient to [facility] care. - Resume regular diet. - Continue present medications. - Use Prilosec (omeprazole) 40 mg PO BID for 12 weeks. - Use sucralfate tablets 1 gram PO BID. Patient will need a repeat upper endoscopy in approximately 3 months after being on maximal acid suppression. Okay to restart anticoagulation. 08/16/2023-lower GI bleed possibly secondary to old blood from upper GI bleed versus diverticular bleed or another cause from lower GI tract. I will order CT angio. Recheck hemoglobin in the morning unless she bleeds again tonight. N.p.o. past midnight. Charges/Coding Visit Charges Inpatient E&M: 30603 Subs Hosp L3
[2023-08-16] MEDS: Budesonide Respules 0.5 MG/2 ML AMPUL.NEB. INHALATION (20:38)
[2023-08-16] MEDS: Arthritis Pain Compound 60 CLICK TUBE TOPICAL (22:46)
[2023-08-16] MEDS: Acetaminophen 500 MG Tablet 1000 MG PO (22:46)
[2023-08-17] VITALS (21 sets, daily range): BP systolic 83–114; BP diastolic 47–78; PULSE 72–94; RESP 16–18; TEMP 36.2–36.8; O2SAT 95–100; BMI 22.0
[2023-08-17 05:31] LABS: Absolute Lymphocyte Count 0.98 X10^3/uL (0.83-4.51); Absolute Neutrophil Count 6.3 X10^3/uL (2.0-7.7); Basophil# 0.03 X10^3/uL; Basophil% 0.3 % (0-1); Eosinophil# 0.14 X10^3/uL; Eosinophils% 1.6 % (0-5); Hematocrit 20.9 % (37-47); Hemoglobin 6.7 g/dL (12.0-15.0); Lymphocyte # 0.98 X10^3/ul (0.83-4.51); Lymphocyte % 11.4 % (19-41); Mean Corp Hgb Conc 32.1 g/dL (32-36); Mean Corpuscular Hgb 29.1 pg (27.0-32.0); Mean Corpuscular Volume 90.9 fL (81-99); Mean Platelet Vol. 10.5 fl (6.2-12.0); Monocyte# 1.02 X10^3/uL; Monocyte% 11.8 % (0-10); NRBC Flagged by Analyzer 0 % (0-5); Neutrophil # 6.32 X10^3/uL (2.7-7.7); Neutrophil % 73.3 % (47-70); POSITIVE MORPHOLOGY YES; Platelet Count 190 K/mm3 (150-450); RBC Distribution Width CV 20.1 % (11.6-14.6); RBC Distribution Width SD 63.5 fl (35.1-43.9); White Blood Count 8.6 K/mm3 (4.4-11.0)
[2023-08-17 05:41] LABS: Differential Indicated SCAN CRITERIA MET
[2023-08-17 05:58] LABS: Anion Gap 7 (5-15); BUN 24 mg/dL (7-18); BUN/Creat Ratio 35.9 RATIO (10-20); Calcium,Total 7.7 mg/dL (8.5-10.1); Chloride 107 mmol/L (98-107); Creatinine, Serum 0.67 mg/dL (0.55-1.02); EST Glomerular Filtration Rate 91 mL/min (>60); Est Glom Filt Rate - Afr Amer 110 mL/min (>60); Estimated Creatinine Clearance 49.49 ml/min; Glucose 110 mg/dL (74-106); Potassium 3.5 mmol/L (3.5-5.1); Sodium Level 142 mmol/L (136-145)
[2023-08-17 06:19] LABS: International Normalized Ratio 1.2; Prothrombin Time (Protime)PT. 15.1 SECONDS (11.7-14.9)
[2023-08-17] MEDS: Ipratropium/Albuterol Sulfate 3 ML AMPUL.NEB INHALATION ×3 (07:42→19:57)
[2023-08-17] MEDS: Budesonide Respules 0.5 MG/2 ML AMPUL.NEB. INHALATION ×2 (07:42→19:57)
[2023-08-17 08:31] LABS: Differential Comment SCANNED
[2023-08-17 08:32] LABS: Anisocytosis 3+; Hypochromasia 1+; Macrocytosis 1+; Microcytosis 2+; Ovalocyte 1+; Schistocytes 1+; Target Cells 1+
[2023-08-17 08:51] LABS: Internal QC Validated? YES +Cl - CLEAR BKGD; Pregnancy, Urine Negative Negative; Record Kit Lot#,Urine Preg HCG0000772476
[2023-08-17] MEDS: 0.9% Normal Saline (1000mL) 1,000 ML 15 ML IV (11:09)
--- NOTE | 2023-08-17 11:24 | PCM.PN.HOSP ---
Reason for Visit Reason for Visit: Diagnoses Histoplasmosis, unspecified (08/13/23) Acute posthemorrhagic anemia (08/13/23) Nonrheumatic aortic (valve) stenosis (08/13/23) Chronic obstructive pulmonary disease, unspecified (08/13/23) Rheumatoid arthritis, unspecified (08/13/23) Weakness (08/13/23) Personal history of other venous thrombosis and embolism (08/13/23) Subjective Subjective Patient seen after endoscopy, reports feeling fair, knees are feeling slightly better than they did yesterday, no nausea or abdominal pain Objective Data Objective Data Vital Signs: Vital Signs Temp Pulse Resp BP Pulse Ox O2 Del Method 97.7 F L 78 16 110/47 L 98 Room Air 08/17/23 08:38 08/17/23 08:38 08/17/23 08:38 08/17/23 08:38 08/17/23 08:38 08/17/23 08:38 Oxygen Delivery Method Room Air Weight: 56.5 kg Body Mass Index (BMI) 22.0 Intake & Output: Intake and Output for Last 24 Hours 08/15/23 08/16/23 08/17/23 23:59 23:59 23:59 Intake Total 1360 / 1360 900 / 900 0 / 0 Output Total 450 / 450 Balance 910 / 910 900 / 900 0 / 0 Lab / Micro Data 08/17/23 04:45 08/17/23 04:45 Labs: Laboratory Results - last 24 hr 08/13/23 10:00: Crossmatch See Detail 08/16/23 11:05: Blood Type O POSITIVE, Antibody Screen NEGATIVE, Crossmatch See Detail 08/17/23 04:45: WBC 8.6, RBC 2.30 L, Hgb 6.7 L, Hct 20.9 L, MCV 90.9, MCH 29.1, MCHC 32.1, RDW Std Deviation 63.5 H, RDW Coeff of Catarino 20.1 H, Plt Count 190, MPV 10.5, Immature Gran % (Auto) 1.600 H, Neut % (Auto) 73.3 H, Lymph % (Auto) 11.4 L, [place] % (Auto) 11.8 H, Eos % (Auto) 1.6, Baso % (Auto) 0.3, Absolute Neuts (auto) 6.3, Absolute Lymphs (auto) 0.98, Nucleated RBC % 0, Differential Comment SCANNED, Hypochromasia 1+, Anisocytosis 3+, Microcytosis 2+, Macrocytosis 1+, Target Cells 1+, Ovalocytes 1+, Schistocytes 1+, PT 15.1 H, INR 1.2, Sodium 142, Potassium 3.5, Chloride 107, Carbon Dioxide 28.0, Anion Gap 7, BUN 24 H, Creatinine 0.67, Estim Creat Clear Calc 49.49, Est GFR (MDRD) Af Amer 110, Est GFR (MDRD) Non-Af 91, BUN/Creatinine Ratio 35.9 H, Glucose 110 H, Calcium 7.7 L 08/17/23 08:37: Urine Test Negative Micro: Microbiology 08/13/23 10:02 Stool Stool Occult Blood (JACKIE) - Final Occult Blood Positive Radiography Diagnostic Testing: Radiology Impression Abdomen/Pelvis CTA 08/16/23 17:55 IMPRESSION: Findings which may be consistent with changes of superior mesenteric artery syndrome No evidence for small bowel obstruction. Contracted gallbladder with tiny stones without evidence for acute inflammation. There is no contrast accumulation within the bowel to suggest acute intraluminal hemorrhage at this time Radionuclide tagged blood cells study would be helpful for further evaluation if clinically warranted. Other findings as above Electronically Signed: Demetris Manzo MD at 18:48 EDT Reading Location ID and State: [address] [place] [address] Tel , Service support , Rhythm Strip Rhythm Strip: Sinus Rhythm Rate: 95 Ectopy: None Physical Exam Narrative General: Alert, oriented, no apparent distress HEENT: Atraumatic, normocephalic Eyes: Anicteric, normal conjunctiva, extraocular movements grossly intact Neck: Supple Respiratory: Clear to auscultation bilaterally, normal respiratory effort Cardiovascular: Regular rate and rhythm, harsh systolic murmur diffusely GI: Soft, nontender, nondistended Extremities: No edema Musculoskeletal: Moving all extremities Neuro: No overt focal neurological deficits Skin: No rashes appreciated Psych: Cooperative Assessment & Plan Assessment/Plan (1) ABLA (acute blood loss anemia): (2) COPD (chronic obstructive pulmonary disease): (3) Histoplasmosis: (4) History of DVT (deep vein thrombosis): (5) Rheumatoid arthritis: (6) Weakness: (7) Severe aortic stenosis: PLAN: Plan #Acute on chronic anemia- ABLA from GI bleed due to oozing duodenal ulcer and angiodysplastic lesions -Patient with black tarry and bloody stools since yesterday -Possibly secondary to supratherapeutic INR and per home med list patient is on naproxen twice daily, hold naproxen -symptomatic with syncopal episode in ED -No further bleeding in ED -Hemoglobin 5.4 with a baseline between 9 and 10 -2 units packed red blood cells ordered -Npo -Trend H&H -Supratherapeutic on Coumadin with an INR of 4.8, vitamin K given in ED and FFP ordered, Coumadin held -IV PPI -GI c/s -08/13: Vitamin K given yesterday, FFP had been ordered but was not given, received 3 units packed red blood cells and hemoglobin is improved, has not bled since arrival so we will transfer out of ICU, discussed with GI, patient will likely need endoscopy, patient n.p.o. -08/14: No further active signs of bleeding, hemoglobin 7.3 continue PPI, Sucralfate, endoscopy showed oozing duodenal ulcer with pigmented material and was treated with heater probe -08/15: Hemoglobin similar to yesterday but patient had large bowel movement with maroon-colored stool and given her GI bleed presentation and history asked that GI be renotified, hold Xarelto, repeat hemoglobin was still stable at this time, advised patient be cautious upon standing when getting up and to let us know if she has any lightheadedness or other concerns. Patient remains on pantoprazole and Carafate -08/16: Patient with repeat endoscopy that showed 3 angiodysplastic lesions, additionally hemoglobin dropped to 6.7 today so patient be transfused 1 unit # Syncopal episode/severe aortic stenosis -Orthostatic versus vasovagal -Given hemoglobin and blood loss with syncopal event when sitting up patient to be admitted to ICU -In ED patient was up on bedside commode and suddenly slumped to the side and had decreased level consciousness -By the time patient got back to the bed she was responding verbally to sternal rub, systolic pressure in the 90s, patient had pulse and recovered after several minutes of laying flat -Bedrest at this time -1 L IV fluid and blood being hung at this time -Management of GI bleed as above -Patient had echocardiogram several months ago which demonstrated EF of 70% and severe aortic stenosis, volume depletion with her severe aortic stenosis seems to be most likely culprit for the syncopal episode in ED -08/13: No further syncopal episodes and symptoms improved with blood and bedrest -08/14: BP somewhat low however patient asymptomatic and reports she is chronically low, has been n.p.o. for 2 days given her bleeding and need for scope suspect she is dry, will give small fluid bolus -08/15: Patient has been asymptomatic -08/16: Even given patient's current hemoglobin she did not have a repeat syncopal episode, monitor volume status to avoid hypotension and further episodes given her aortic stenosis #Fall at home -Fill x 2 at home, unclear if this was due to weakness or other syncopal episodes -PT/OT -Treat volume depletion -Able to move both knees, can consider x-ray if any increased pain or no improvement -Tylenol as needed -May need to add pain medication but would be potentially limited by blood pressure -08/13: Reports she is not presently having any pain and feels much better than she did at home -08/14: Awaiting PT/OT, patient does well she will go home if not needed discussed placement -08/15: Did very well with PT/OT, patient able to be discharged home soon likely will not need placement -08/16: Did well with PT/OT however patient has required continued hospitalization for medical reasons #Hx DVTs/IVC filter/Supratherapeutic INR -INR 4.8 -Coumadin held, vitamin K given and FFP ordered in ED -Daily INR -SCDs for DVT prophylaxis -08/13: Continue SCDs, patient has complex history given her clotting and bleeding, discussed with GI and pending scope may need to continue to hold Coumadin and have this resumed at discretion of her outpatient provider if she does not have further bleeding after weighing risks and benefits, does have permanent IVC filter in place -08/14: Discussed with GI, will resume Coumadin given her clot risk and resume at lower dose, INR daily -08/15: Given concern for rebleed patient left Coumadin held again -08/16: Continue to hold Coumadin, will need to discuss with GI on optimal timing of resuming prior to discharge #COPD -Continue home inhalers -08/14: Breathing well with no acute complaints #Hx RA -Not on treatment presently due to being treated for histoplasmosis -08/13: Was on a prednisone taper for her RA however reports having no pain and overall feels better than she did -08/14: Intermittently has some pain in her joints -08/15: Reports pain in her knees has been increasing now that she is off the prednisone, will try topical arthritis compound and scheduled Tylenol and if this does not work may need to consider resuming her prednisone as this is what has worked for her in the past and she was on it prior to admission -08/16: Scheduled Tylenol and topical compound have been helpful thus far, continue present management #Hx histoplasmosis -Patient had been on itraconazole, unclear if she still taking her stop date, patient fairly poor historian in ED -Will need to clarify this -08/13: Is still on itraconazole, this has been reordered -08/16: Patient brought in more home itraconazole as she reports her home formulation is what she needs to take given she is concurrently on Protonix #DVT ppx: SCDs Laine Veras MD Time spent in the patient's overall evaluation,decision-making process, review of diagnostic data, adjustment of management, discussion with other providers, nursing nursing and ancillary staff involved in patient's care documentation, 38 Minutes Charges/Coding Visit Charges Inpatient E&M: 77768 Subs Hosp L2
--- NOTE | 2023-08-17 11:55 | PRE.ANES_ITS ---
ASA Classification* ASA Classification ASA Classification: 3 Assessment & Plan Anesthesia* Anesthesia Assessment Anesthesia Assessment: Discussed sedation and/or anesthesia options, risks, benefits, and alternatives with patient/parents/legal guardian/POA. Questions invited. The patient/parents/legal guardian/POA seems to understand and agrees to proceed with anesthesia plan. Reviewed the physical assessment, medical history, allergy history and patient home medications list prior to surgery/procedure/anesthetic and documented any changes. Performed airway and anesthesia risk assessments. Anesthesia Type Anesthesia Type: MAC History Source History Obtained from:: Patient and Chart Anesthesia Focused Assessment* Temperature: 97.7 F Pulse Rate: 78 Blood Pressure: 110/47 Respiratory Rate: 16 Pulse Ox: 98 Oxygen Delivery Method: Room Air Airway Assessment Mouth opens: >3 cm Mallampati Score: IV Teeth Condition: Caps/Crowns (Patient Has Caps on Molars. All Tight) Neck Range of motion (ROM): Full ROM Focused Labs Anesthesia Preop lab: CBC WBC 8.6 K/mm3 (4.4-11.0) 08/17/23 04:45 RBC 2.30 M/mm3 (4.2-5.4) L 08/17/23 04:45 Hgb 6.7 g/dL (12.0-15.0) L 08/17/23 04:45 Hct 20.9 % (37-47) L 08/17/23 04:45 Plt Count 190 K/mm3 (150-450) 08/17/23 04:45 CHEMISTRY Potassium 3.5 mmol/L (3.5-5.1) 08/17/23 04:45 Sodium 142 mmol/L (136-145) 08/17/23 04:45 Magnesium 1.9 mg/dL (1.6-2.6) 08/14/23 05:45 Phosphorus 2.3 mg/dL (2.5-4.9) L 08/14/23 05:45 BUN 24 mg/dL (7-18) H 08/17/23 04:45 Creatinine 0.67 mg/dL (0.55-1.02) 08/17/23 04:45 Glucose 110 mg/dL (74-106) H 08/17/23 04:45 TSH 0.76 uIU/mL (0.358-3.74) 03/27/23 06:47 COAG PT 15.1 SECONDS (11.7-14.9) H 08/17/23 04:45 Urine Test Negative Negative 08/17/23 08:37 Pre-Assessment Diagnosis/Proposed Procedure Planned Operative Procedure(s): EGD Anesthesia History Anesthesia History - data architect: Anesthesia History - data architect Hx Hospitalization Any Problems With Anesthesia No 08/14/23 15:33 Cholinesterase deficiency You/Your Family Experience fever (hyperthermia) with Relationship Recent Exposure to Contagious Disease Does patient have nerve No 08/14/23 15:33 stimulator Patient instructed to have device shut off --Does patient have Pacemaker No 08/14/23 15:33 or ICD? When Was Last Pacemaker Check QUESTION #4 FULL TEXT: You/Your Family Experience fever (hyperthermia) with Anesthesia Last Oral Intake Last Oral intake: Last Oral Intake NPO since 23:59 08/14/23 15:33 Meds taken in AM with sips of Yes 08/14/23 15:33 water? Meds patient instructed to take am of surgery Patient has been n.p.o. since midnight of August 16 Any additional information?: Yes NPO since: 00:00 Meds taken in AM with sips of water?: No PONV PONV - data architect: PONV - data architect Female HX of Motion Sickness HX of N/V After Surgery Non-Smoker Duration of Surgery greater than 60 minutes Number of Risk Factors PONV Score Height & Weight Height & Weight: Anesthesia: Height & Weight Height 5 ft 3 in 08/17/23 11:11 Weight: 56.5 kg 08/17/23 11:11 Body Mass Index (BMI) 22.0 08/17/23 06:00 Respiratory Assessment Respiratory Assessment - data architect: Respiratory Tract Infection Hx - data architect Hx Respiratory Tract Infection Any additional information?: No STOP Sleep Apnea STOP Sleep Apnea - data architect: STOP Sleep Apnea - data architect Hx Hypertension Yes: no medication needed 08/15/23 13:07 Hx Sleep Apnea No 08/14/23 17:30 CPAP BIPAP Do you snore loudly (louder No 08/13/23 12:30 than talking or can be heard Do you often feel tired/ No 08/13/23 12:30 fatigued/ sleepy during daytime? Has anyone observed you stop No 08/13/23 12:30 breathing during sleep? STOP Results Negative 08/14/23 17:12 QUESTION #5 FULL TEXT : Do you snore loudly (louder than talking or can be heard through closed doors)? 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 Use History - data architect: Tobacco Use History - data architect Tobacco Use Smoking Status Former smoker 08/13/23 12:30 Hx Tobacco Use No 08/13/23 12:30 Years Smoking Packs Smoked per Day Smoking Cessation Date was No - quit smoking greater 08/13/23 12:30 within the last 15 years than 15 years ago Hx Smoking Cessation Date 02/19/74 08/13/23 12:30 Hx Smoking Cessation No 08/13/23 12:30 Counseling Hematologic Medial History Hematologic Hx - data architect: Hematologic Medical Hx - television specialist Hx of Blood Transfusion Yes 08/13/23 12:30 Hx of Transfusion in last 3 No 08/13/23 12:30 Months Date of Last Transfusion (if within last 3 months) Ever experience any problems No 08/13/23 12:30 with transfusion(s)? Specify any problems Hx of Preganancy in last 3 N/A 08/13/23 12:30 Months Nurse Filling Out Transfusion BSTEELE 08/13/23 12:30 & Questions: Date: 08/13/23 08/13/23 12:30 Time: 12:55 08/13/23 12:30 Patient unable to answer at this time (ie. confused, unrespo /Reproduction History /Reproductive History - data architect: /Reproductive Hx- data architect Hx Now No 08/14/23 15:33 Gestational Age (in weeks): EDC: Hx Hx Para Hx Section SAB Active Medications Active Medications: Current Medications Generic Name Dose Route Start Last Admin Trade Name Freq PRN Reason Stop Dose Admin Acetaminophen 1,000 mg 08/16/23 22:00 08/17/23 06:22 Acetaminophen 500 Mg Tablet PO Not Given Q8 MARGARETTE Acetaminophen 500 mg 08/16/23 17:11 Acetaminophen 500 Mg Tablet PO BID PRN PRN Pain 1-10 Or Fever >100.7 Albuterol Sulfate 2.5 mg 08/13/23 12:31 Albuterol 2.5 Mg/3 Ml Vial.Neb. INHALATION Q2H PRN PRN SOB &/OR WHEEZING Albuterol/Ipratropium 3 ml 08/13/23 13:15 08/17/23 07:42 Ipratropium/Albuterol Sulfate 3 Ml Ampul.Neb INHALATION 3 ml Q6HWA.RT MARGARETTE Administration Budesonide 0.5 mg 08/13/23 13:10 08/17/23 07:42 Budesonide Respules 0.5 Mg/2 Ml Ampul.Neb. INHALATION 0.5 mg Q12H.RT MARGARETTE Administration Compound Med 0 click 08/16/23 22:00 08/16/23 22:46 Arthritis Pain Compound 60 Click Tube TOPICAL 4 click BID MARGARETTE Administration Protocol Gabapentin 300 mg 08/13/23 22:00 08/16/23 22:46 Gabapentin 300 Mg Capsule PO 300 mg Q12 MARGARETTE Administration Sodium Chloride 250 mls @ 15 mls/hr 08/13/23 12:59 08/15/23 07:54 IV Infused .[id number] PRN Infusion Additional IVPB Infusion Sodium Chloride 250 mls @ 15 mls/hr 08/13/23 12:59 IV .[id number] PRN Saline Flush Sodium Chloride 1,000 mls @ 15 mls/hr 08/14/23 15:40 08/17/23 11:09 IV 15 mls/hr .Q48H MARGARETTE Administration Itraconazole 200 mg 08/14/23 22:00 08/16/23 19:51 Itraconazole 10 Mg/Ml Solution PO 200 mg BID MARGARETTE Administration Melatonin 3 mg 08/13/23 12:31 Melatonin 3 Mg Tablet PO QHS PRN PRN INSOMNIA Ondansetron HCl 4 mg 08/13/23 12:31 Ondansetron 4 Mg/2 Ml Vial IV Q8H PRN PRN NAUSEA/VOMITING Pantoprazole Sodium 40 mg 08/15/23 10:00 08/16/23 22:46 Pantoprazole Sodium 40 Mg Tablet PO 40 mg BID MARGARETTE Administration Senna/Docusate Sodium 2 tablet 08/13/23 12:31 Senna/Docusate Sodium 1 Tablet PO BID PRN Constipation Sodium Chloride 10 - 40 ml 08/13/23 12:59 08/14/23 12:14 0.9% Saline Lock 10 Ml Syringe IV 20 ml UD PRN Administration SALINE FLUSH Sucralfate 1 gm 08/15/23 16:00 06/28/24 06:22 Sucralfate 1 Gm Tablet PO Not Given [facility] Medical History Severe aortic stenosis Thrombocytopenia Adult failure to thrive Leg edema Rheumatoid arthritis COPD (chronic obstructive pulmonary disease) Former smoker DVT (deep venous thrombosis) Pulmonary embolism Colitis COVID-19 Histoplasmosis Home Medications ?Medication ?Instructions ?Recorded ?Last Taken ?Type multivitamin (Daily Multi-Vitamin 1 tab PO DAILY supplement 03/19/23 08/12/23 History tablet) vitamins A,C,S-giwt-fgutiw 2,148 2 tab PO BID eye health 03/19/23 08/12/23 History mcg-113 mg-45 mg-17.4 mg tablet (PreserVision AREDS) gabapentin 300 mg capsule 300 mg PO Q12 nerve pain #0 caps 04/05/23 08/12/23 Rx acetaminophen 500 mg tablet 1,000 mg (2 x 500 mg) PO Q6H PRN 04/27/23 Unknown Rx PRN Pain Score 1-10 #0 tabs potassium chloride 20 mEq 20 meq PO BIDCM #0 tabs 04/27/23 08/12/23 Rx tablet,extended release(part/cryst) fluticasone 250 mcg-salmeterol 50 1 ea inhalation BID 08/13/23 08/12/23 History mcg/dose blistr powdr for inhalation fluticasone propionate 50 1 spray intranasal DAILY 08/13/23 08/12/23 History mcg/actuation nasal spray,suspension furosemide 20 mg tablet 20 mg PO DAILY PRN edema 08/13/23 08/12/23 History itraconazole 10 mg/mL oral solution 200 mg PO BID 08/13/23 08/12/23 History naproxen 500 mg tablet 500 mg PO BID PRN 08/13/23 08/12/23 History prednisone 20 mg tablet 20 mg PO Q12H 08/13/23 08/12/23 History tiotropium bromide 2.5 2 puff inhalation DAILY 08/13/23 08/12/23 History mcg/actuation mist for inhalation (Spiriva Respimat) warfarin 5 mg tablet 5 mg PO [id number] 08/13/23 08/12/23 History warfarin 7.5 mg tablet (Jantoven) 7.5 mg PO TH 08/13/23 08/12/23 History Allergy/AdvReac Type Severity Reaction Status Date / Time Penicillins Allergy Severe Anaphylaxis Verified 08/13/23 14:22 Surgical History History of embolic filter insertion Hx of foot surgery Social History household members: none Smoking Status: Former smoker alcohol intake: never substance use type: does not use Review of Systems (Anesthesia) ROS Narrative System reviewed and no additional complaints, except as documented.
--- NOTE | 2023-08-17 12:34 | PCM.POST.ANE ---
Anesthesia: Postop Eval I Current Vital Signs Temperature: 98.3 F Pulse Rate: 80 Blood Pressure: 86/48 Respiratory Rate: 16 Pulse Ox: 100 Oxygen Delivery Method: Room Air Assessment Airway patent: Yes Spontaneous unlabored respirations: Yes Mental status: Asleep nausea: No Vomiting: No Anesthesia Complication: No Fluid Hydration Crystalloid volume administer (ml): 400 Total IV fluid infused: 400 Progress Note Anesthesia document: Postop Eval 1 completed: Yes
--- NOTE | 2023-08-17 12:41 | OP.CCLET_ITS ---
08/17/2023 Deyanira Pak [address] [place] [address] Re : Upper GI endoscopy procedure for Haydee Bartow Dear Dr. Pak This procedure was performed on Thursday, August 17, 2023. My impressions and recommendations are as follows: Impressions : - Normal esophagus. - Small hiatal hernia. - Non-bleeding duodenal ulcer with no stigmata of bleeding. - Three bleeding angiodysplastic lesions in the jejunum. Treated with a heater probe. - No specimens collected. Recommendations : - [facility]. - Resume previous diet. - Continue present medications. My findings are described in the full procedure note, which is enclosed. If I can be of further assistance, please feel free to contact me at . Sincerely, Mathew Orellana, 08/17/2023 12:40:51 PM This report has been signed electronically.
--- NOTE | 2023-08-17 12:41 | OP.EGD_ITS ---
Patient Name: Haydee Gibbs Procedure Date: 08/17/2023 11:19 AM Date of : 1945 Age: 78 Procedure: Upper GI endoscopy Indications: Melena Providers: Mathew Orellana DO Medicines: Monitored Anesthesia Care Patient Profile: This is a 78 year old female. Refer to note in patient chart for documentation of history and physical. Patient has symptoms. Complications: No immediate complications. Procedure: Pre-Anesthesia Assessment: - Prior to the procedure, a History and Physical was performed, and patient medications and allergies were reviewed. The patient is competent. The risks and benefits of the procedure and the sedation options and risks were discussed with the patient. All questions were answered and informed consent was obtained. Patient identification and proposed procedure were verified by the physician in the pre-procedure area. Mental Status Examination: alert and oriented. Airway Examination: normal oropharyngeal airway and neck mobility. Respiratory Examination: clear to auscultation. CV Examination: normal. Prophylactic Antibiotics: The patient does not require prophylactic antibiotics. Prior Anticoagulants: The patient has taken no anticoagulant or antiplatelet agents. ASA Grade Assessment: III - A patient with severe systemic disease. After reviewing the risks and benefits, the patient was deemed in satisfactory condition to undergo the procedure. The anesthesia plan was to use monitored anesthesia care (MAC). Immediately prior to administration of medications, the patient was re-assessed for adequacy to receive sedatives. The heart rate, respiratory rate, oxygen saturations, blood pressure, adequacy of pulmonary ventilation, and response to care were monitored throughout the procedure. The physical status of the patient was re-assessed after the procedure. After obtaining informed consent, the endoscope was passed under direct vision. Throughout the procedure, the patient's blood pressure, pulse, and oxygen saturations were monitored continuously. The Colonoscope was introduced through the mouth, and advanced to the second part of duodenum. The upper GI endoscopy was accomplished without difficulty. The patient tolerated the procedure well. Scope In: 12:15:34 PM Scope Out: 12:26:13 PM Total Procedure Duration Time 0 hours 10 minutes 39 seconds Findings: The examined esophagus was normal. A small hiatal hernia was present. One non-bleeding cratered duodenal ulcer with no stigmata of bleeding was found in the duodenal bulb. The lesion was 6 mm in largest dimension. Three 5 mm angiodysplastic lesions with bleeding were found in the jejunum. Coagulation for hemostasis using heater probe was successful. Estimated blood loss was minimal. Impression: - Normal esophagus. - Small hiatal hernia. - Non-bleeding duodenal ulcer with no stigmata of bleeding. - Three bleeding angiodysplastic lesions in the jejunum. Treated with a heater probe. - No specimens collected. Recommendation: - Return [facility] to [facility]. - Resume previous diet. - Continue present medications. Procedure Code(s): --- Professional --- 61015, Esophagogastroduodenoscopy, flexible, transoral; with control of bleeding, any method CPT copyright 2021 [employer]. All rights reserved. The codes documented in this report are preliminary and upon crepe sole wire brusher review may be revised to meet current compliance requirements. Mathew Orellana DO 08/17/2023 12:40:51 PM This report has been signed electronically. Number of Addenda: 0 Note Initiated On: 08/17/2023 11:19 AM
[2023-08-17] MEDS: Acetaminophen 500 MG Tablet 1000 MG PO ×2 (14:18→20:47)
--- NOTE | 2023-08-17 14:46 | CASEMGMT ---
RN CM in to discuss needs at discharge. Patient has been using a walker with therapy. Patient denies need for walker at discharge and declines C or outpatient therapy. Patient agreeable to take script for walker and fill if she reconsiders. Script received and provided to patient. Patient had no further questions or concerns.
[2023-08-17] MEDS: 0.9% Saline Lock 10 ML Syringe IV ×3 (15:44→20:54)
[2023-08-17] MEDS: Sucralfate 1 GM Tablet PO (15:45)
[2023-08-17 20:13] LABS: Hemoglobin 7.9 g/dL (12.0-15.0)
[2023-08-17] MEDS: Gabapentin 300 MG Capsule PO (20:45)
[2023-08-17] MEDS: Pantoprazole Sodium 40 MG Tablet PO (20:47)
[2023-08-17] MEDS: ITRACONAZOLE 10 MG/ML 200 MG PO (20:47)
[2023-08-17] MEDS: Arthritis Pain Compound 60 CLICK TUBE TOPICAL (20:49)
[2023-08-17] MEDS: MELATONIN 3 MG TABLET PO (20:53)
[2023-08-18 02:36] VITALS: BP 102/63; PULSE 75; RESP 16; TEMP 36.6; O2SAT 98
[2023-08-18 03:39] VITALS: BMI 22.0
[2023-08-18] MEDS: Acetaminophen 500 MG Tablet 1000 MG PO ×2 (06:16→13:26)
[2023-08-18] MEDS: Sucralfate 1 GM Tablet PO (06:16)
[2023-08-18 06:27] LABS: Absolute Lymphocyte Count 0.73 X10^3/uL (0.83-4.51); Absolute Neutrophil Count 5.8 X10^3/uL (2.0-7.7); Basophil# 0.05 X10^3/uL; Basophil% 0.6 % (0-1); Eosinophil# 0.23 X10^3/uL; Hematocrit 25.5 % (37-47); Hemoglobin 8.1 g/dL (12.0-15.0); Lymphocyte # 0.73 X10^3/ul (0.83-4.51); Lymphocyte % 9.4 % (19-41); Mean Corp Hgb Conc 31.8 g/dL (32-36); Mean Corpuscular Hgb 28.9 pg (27.0-32.0); Mean Corpuscular Volume 91.1 fL (81-99); Mean Platelet Vol. 10.9 fl (6.2-12.0); Monocyte# 0.82 X10^3/uL; Monocyte% 10.6 % (0-10); NRBC Flagged by Analyzer 0 % (0-5); Neutrophil # 5.83 X10^3/uL (2.7-7.7); Neutrophil % 75.1 % (47-70); Platelet Count 203 K/mm3 (150-450); RBC Distribution Width CV 18.8 % (11.6-14.6); RBC Distribution Width SD 60.4 fl (35.1-43.9); White Blood Count 7.8 K/mm3 (4.4-11.0)
[2023-08-18 06:35] LABS: International Normalized Ratio 1.1; Prothrombin Time (Protime)PT. 13.9 SECONDS (11.7-14.9)
[2023-08-18 07:00] LABS: Anion Gap 4 (5-15); BUN 15 mg/dL (7-18); BUN/Creat Ratio 29.5 RATIO (10-20); Chloride 108 mmol/L (98-107); Creatinine, Serum 0.51 mg/dL (0.55-1.02); EST Glomerular Filtration Rate 125 mL/min (>60); Est Glom Filt Rate - Afr Amer 151 mL/min (>60); Estimated Creatinine Clearance 49.49 ml/min; Glucose 84 mg/dL (74-106); Potassium 3.5 mmol/L (3.5-5.1); Sodium Level 139 mmol/L (136-145)
[2023-08-18] MEDS: Ipratropium/Albuterol Sulfate 3 ML AMPUL.NEB INHALATION (07:16)
[2023-08-18] MEDS: Budesonide Respules 0.5 MG/2 ML AMPUL.NEB. INHALATION (07:16)
[2023-08-18 07:20] VITALS: PULSE 76; RESP 20
[2023-08-18 07:48] VITALS: O2SAT 98
[2023-08-18 08:30] VITALS: BP 101/70; PULSE 76; RESP 18; TEMP 36.9; O2SAT 98
[2023-08-18 09:00] VITALS: PULSE 76; RESP 18; O2SAT 98
[2023-08-18] MEDS: Pantoprazole Sodium 40 MG Tablet PO (09:06)
[2023-08-18] MEDS: ITRACONAZOLE 10 MG/ML 200 MG PO (09:06)
[2023-08-18] MEDS: Arthritis Pain Compound 60 CLICK TUBE TOPICAL (09:07)
[2023-08-18] MEDS: Gabapentin 300 MG Capsule PO (09:15)
--- NOTE | 2023-08-18 12:58 | DS.PCM_ITS ---
Providers Date of Admission: 08/13/23 Date of Discharge: 08/18/23 Primary Care Physician: Dr. Deyanira Pak MD Consultations 08/13/23 12:31 Consult: Gastroenterology Routine Consulting Provider: [facility] Reason for Consult: GI bleed EMERGENT Consult: No MD Notified: Yes Date Notified: 08/13/23 Time Notified: 12:00 Method of Notification: ED Physician Initiated Reason For Visit: ABLA Diagnosis Discharge Diagnosis (1) ABLA (acute blood loss anemia): Status: Acute Code(s): D62 - Acute posthemorrhagic anemia (2) COPD (chronic obstructive pulmonary disease): Status: Chronic Code(s): J44.9 - Chronic obstructive pulmonary disease, unspecified (3) Histoplasmosis: Status: Acute Code(s): B39.9 - Histoplasmosis, unspecified (4) History of DVT (deep vein thrombosis): Status: Acute Code(s): Z86.718 - Personal history of other venous thrombosis and embolism (5) Rheumatoid arthritis: Status: Acute Code(s): M06.9 - Rheumatoid arthritis, unspecified (6) Weakness: Status: Acute Code(s): R53.1 - Weakness (7) Severe aortic stenosis: Status: Acute Code(s): I35.0 - Nonrheumatic aortic (valve) stenosis Plan #Acute on chronic anemia- ABLA from GI bleed due to oozing duodenal ulcer and angiodysplastic lesions # Syncopal episode/severe aortic stenosis #Fall at home #Hx DVTs/IVC filter/Supratherapeutic INR #COPD #Hx RA #Hx histoplasmosis Medications at Discharge Home Medications multivitamin (Daily Multi-Vitamin tablet) 1 tab PO DAILY supplement 03/19/23 vitamins A,C,M-stlw-ppuwzp 2,148 mcg-113 mg-45 mg-17.4 mg tablet (PreserVision AREDS) 2 tab PO BID eye health 03/19/23 gabapentin 300 mg capsule 300 mg PO Q12 nerve pain #0 caps 04/05/23 acetaminophen 500 mg tablet 1,000 mg (2 x 500 mg) PO Q6H PRN PRN Pain Score 1-10 #0 tabs 04/27/23 potassium chloride 20 mEq tablet,extended release(part/cryst) 20 meq PO BIDCM #0 tabs 04/27/23 fluticasone 250 mcg-salmeterol 50 mcg/dose blistr powdr for inhalation 1 ea inhalation BID 08/13/23 fluticasone propionate 50 mcg/actuation nasal spray,suspension 1 spray intranasal DAILY 08/13/23 furosemide 20 mg tablet 20 mg PO DAILY PRN edema 08/13/23 itraconazole 10 mg/mL oral solution 200 mg PO BID 08/13/23 tiotropium bromide 2.5 mcg/actuation mist for inhalation (Spiriva Respimat) 2 puff inhalation DAILY 08/13/23 diclofenac sodium 1 % topical gel (Voltaren Arthritis Pain) 4 g topical BID PRN PRN knee pain #100 grams 08/18/23 pantoprazole 40 mg tablet,delayed release 40 mg PO BID 30 days #60 tabs 08/18/23 sucralfate 1 gram tablet 1 g PO BIDAC 30 days #60 tabs 08/18/23 warfarin 5 mg tablet See Rx Instructions .Route .COMPLEX #30 tabs 08/18/23 Hospital Course Procedures - (EGD x2) Summary of Care Provided Minutes Spent on Discharge: 35 Hospital Course: ALENA BUSTAMANTE, is a 78 F with a 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 ED 08/13/2023 with dark and bloody bowel movements for roughly 12 hours. In ED she was found to have a hemoglobin of 5.4 and 2 units packed red blood cells ordered and IV PPI, she had an INR of 4.8 given her hemoglobin she was given vitamin K and GI was contacted. In the ED prior to admission she got up to bedside commode and had a syncopal episode, presumably due to volume depletion with her severe aortic stenosis as her blood had not been given yet and she was placed back on the bed and regain consciousness, had no further episodes after being repleted with blood and fluids. Patient had EGD which showed oozing duodenal ulcer with pigmented material and this was treated with heater probe. Patient tolerated this well and hemoglobin was stable and she worked well with therapy, on 08/15 she was going to be discharged however had a large bowel movement that was maroon. She underwent repeat EGD which showed nonbleeding duodenal ulcer but 3 angiodysplastic lesions that were bleeding in the jejunum, these were treated with heater probe. Patient tolerated this well and next bowel movement with no further blood, discussed with GI patient okay to resume her Coumadin given the culprit lesions were cauterized but is advise she follow-up outpatient for colonoscopy. On day of discharge patient feeling much better, comfortable with discharge. Discharge instructions as follows: -Your coumadin dose has been decreased. You will take 5 mg every day but Sunday and Sunday which you will take 2.5 mg -You will take protonix 40mg twice daily and carafate twice daily. -Would recommend lab work (cbc) to check your blood counts in 2 to 3 days through your primary care physician's office. Please call their office upon discharge to obtain order for lab work. -You will need to follow-up with Dr. Orellana with GI in his office upon discharge as he will likely need an outpatient colonoscopy. Please call his office to schedule your hospital follow-up appointment (ph. [phone]) -It is advised that you use Voltaren (diclofenac) gel on your knees on an outpatient basis -Please call your primary care provider's office upon discharge to schedule a hospital follow up within 1 week. -For any concerning signs or symptoms please call 911 or proceed to the nearest emergency department Physical Exam Narrative General: Alert, oriented, no apparent distress HEENT: Atraumatic, normocephalic Eyes: Anicteric, normal conjunctiva, extraocular movements grossly intact Neck: Supple Respiratory: Clear to auscultation bilaterally, normal respiratory effort Cardiovascular: Regular rate and rhythm, harsh systolic murmur diffusely GI: Soft, nontender, nondistended Extremities: No edema Musculoskeletal: Moving all extremities Neuro: No overt focal neurological deficits Skin: No rashes appreciated Psych: Cooperative Weight / BMI Weight Weight: 56.4 kg Body Mass Index (BMI) 22.0 ABG / Lab / Microbiology Data 08/18/23 06:00 08/18/23 06:00 Laboratory: Laboratory Results - last 24 hr 08/16/23 11:05: Blood Type O POSITIVE, Antibody Screen NEGATIVE, Crossmatch See Detail 08/17/23 20:01: Hgb 7.9 L 08/18/23 06:00: WBC 7.8, RBC 2.80 L, Hgb 8.1 L, Hct 25.5 L, MCV 91.1, MCH 28.9, MCHC 31.8 L, RDW Std Deviation 60.4 H, RDW Coeff of Catarino 18.8 H, Plt Count 203, MPV 10.9, Immature Gran % (Auto) 1.300 H, Neut % (Auto) 75.1 H, Lymph % (Auto) 9.4 L, Putnam % (Auto) 10.6 H, Eos % (Auto) 3.0, Baso % (Auto) 0.6, Absolute Neuts (auto) 5.8, Absolute Lymphs (auto) 0.73 L, Nucleated RBC % 0, PT 13.9, INR 1.1, Sodium 139, Potassium 3.5, Chloride 108 H, Carbon Dioxide 27.0, Anion Gap 4 L, BUN 15, Creatinine 0.51 L, Estim Creat Clear Calc 49.49, Est GFR (MDRD) Af Amer 151, Est GFR (MDRD) Non-Af 125, BUN/Creatinine Ratio 29.5 H, Glucose 84, Calcium 8.0 L Microbiology: Microbiology 08/13/23 10:02 Stool Stool Occult Blood (JACKIE) - Final Occult Blood Positive D/C Instructions Discharge Diet: No restrictions Meaningful Use Info Meaningful Use Meaningful Use Diagnoses (Choose all that apply): None applicable Ischemic Stroke Statin Dosing Therapy Reference: STATIN DOSE THERAPY REFERENCE: * Patients > 75 years receive moderate or high dose statin therapy. * Patients 75 years or YOUNGER should receive HIGH intensity statin dose unless contraindicated. You will be required to document reason for non-treatment if statin daily dose does not meet guidelines. HIGH DOSE STATIN THERAPY DAILY Atorvastatin > than or = to 40 mg Rosuvastatin > than or = to 20 mg Amlodipine + Atorvastatin > than or = to 2.5/40 mg Ezetimibe + Simvastatin 10/80 mg Simvastatin 80mg Discharge Plan Admission Admit Date/Time: 08/13/23 11:47 Primary Reason for Your Visit: GI bleed Attending Provider: Laine Veras Primary Care Provider: Deyanira Pak Instructions Patient Instructions: ED Upper GI Bleeding (Stable) Additional Instructions / Restrictions: DISCHARGE INSTRUCTIONS PLEASE READ *Please take this with you to your next doctors appointment* -Your coumadin dose has been decreased. You will take 5 mg every day but Sunday and Sunday which you will take 2.5 mg -You will take protonix 40mg twice daily and carafate twice daily. -Would recommend lab work (cbc) to check your blood counts in 2 to 3 days through your primary care physician's office. Please call their office upon discharge to obtain order for lab work. -You will need to follow-up with Dr. Orellana with GI in his office upon discharge as he will likely need an outpatient colonoscopy. Please call his office to schedule your hospital follow-up appointment (ph. [phone]) -It is advised that you use Voltaren (diclofenac) gel on your knees on an outpatient basis - Advise against taking any naproxen, Advil, ibuprofen or other medications in the NSAID family as this could cause recurrent ulcers or bleeding in your stomach -Please call your primary care provider's office upon discharge to schedule a hospital follow up within 1 week. -For any concerning signs or symptoms please call 911 or proceed to the nearest emergency department Discharge Orders/Prescriptions Prescriptions: New sucralfate 1 gram Tablet 1 g PO BIDAC 30 Days Qty: 60 0RF pantoprazole 40 mg Tablet,Delayed Release (Dr/Ec) 40 mg PO BID 30 Days Qty: 60 0RF diclofenac sodium [Voltaren Arthritis Pain] 1 % gel 4 g topical BID PRN PRN (Reason: knee pain) Qty: 100 0RF Continued PreserVision AREDS 2,148 mcg-113 mg-45 mg-17.4mg tablet 2 tab PO BID Rx Instructions: administer with AM and PM meals multivitamin [Daily Multi-Vitamin] Tablet 1 tab PO DAILY gabapentin 300 mg Capsule 300 mg PO Q12 Qty: 0 0RF acetaminophen 500 mg Tablet 1,000 mg PO Q6H PRN PRN (Reason: Pain Score 1-10) Qty: 0 0RF potassium chloride 20 mEq Tablet,Er Particles/Crystals 20 meq PO BIDCM Qty: 0 0RF fluticasone propion-salmeterol 250-50 mcg/dose blister with device 1 ea INHALATION BID itraconazole 10 mg/mL solution 200 mg PO BID furosemide 20 mg tablet 20 mg PO DAILY PRN (Reason: edema) Spiriva Respimat 2.5 mcg/actuation mist 2 puff INHALATION DAILY fluticasone propionate 50 mcg/actuation spray,suspension 1 spray INTRANASAL DAILY Changed warfarin 5 mg tablet See Rx Instructions .ROUTE .COMPLEX Qty: 30 0RF Rx Instructions: 5 mg orally Sun/Sun/Sun//Sun, 2.5 mg orally /Sun Discontinued naproxen 500 mg tablet 500 mg PO BID PRN prednisone 20 mg tablet 20 mg PO Q12H warfarin [Jantoven] 7.5 mg tablet 7.5 mg PO Referrals / Follow Up: Deyanria Pak MD [Primary Care Provider] - Within 1 Week Mathew Orellana DO [Med Staff - Active Staff] - ( -You will need to follow-up with Dr. Orellana with GI in his office upon discharge. Please call his office to schedule your hospital follow-up appointment (ph. [phone])) Disposition Disposition (needs filled in before D/C Order can be placed): Home, Self Care Charges/Coding Visit Charges Inpatient E&M: 54049 Disch Hosp >30min
[2023-08-18 14:30] VITALS: BP 113/85; PULSE 80; RESP 18; TEMP 36.9; O2SAT 96
== END 2023-08-18 15:02 | disposition home or self-care (01) | DRG 378 ==
LOC: ED 10:57 → ICU 11:52 → PCU 08-15 12:32
PROVIDERS: Internal Medicine Gastroenterology; Admitting Provider Internal Medicine; Emergency Provider Emergency Medicine; PCP Internal Medicine; Visit Provider Internal Medicine
PROC: 0DJ08ZZ Inspection of Upper Intestinal Tract, Via Natural or Artificial Opening Endoscopic (ICD-10-PCS; CPT 43235; principal; 2023-08-14 16:25)
DX: K31.811 Angiodysplasia of stomach and duodenum with bleeding (principal); D62 Acute posthemorrhagic anemia; D68.32 Hemorrhagic disorder due to extrinsic circulating 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; B39.9 Histoplasmosis, unspecified; E86.9 Volume depletion, unspecified; J44.9 Chronic obstructive pulmonary disease, unspecified; M06.9 Rheumatoid arthritis, unspecified; I35.0 Nonrheumatic aortic (valve) stenosis; K26.9 Duodenal ulcer, unspecified as acute or chronic, without hemorrhage or perforation; Z79.1 Long term (current) use of non-steroidal anti-inflammatories (NSAID); Z87.891 Personal history of nicotine dependence; Z86.16 Personal history of COVID-19; G89.29 Other chronic pain; Z79.51 Long term (current) use of inhaled steroids; Z79.52 Long term (current) use of systemic steroids; Z86.718 Personal history of other venous thrombosis and embolism; R29.6 Repeated falls; Z79.01 Long term (current) use of 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
CPT/HCPCS: 36415; 51702; 74174; 80048; 81025; 82274; 83735; 84100; 85014; 85018; 85025; 85610; 86850; 86900; 86901; 86920; 86922; 88305; 93005; 94640; 97116; 97162; 97166; 97530; 99285; J7030; J7040; J7050; P9016; Q9967; A4216; J2405; J3490

== ENCOUNTER → 2023-09-03 | Outpatient (CLI) | payer MEDICARE, SELFPAY ==
[2023-09-03 16:24] LABS: Absolute Lymphocyte Count 0.93 X10^3/uL (0.83-4.51); Absolute Neutrophil Count 4.3 X10^3/uL (2.0-7.7); Basophil# 0.05 X10^3/uL; Basophil% 0.8 % (0-1); Eosinophil# 0.04 X10^3/uL; Eosinophils% 0.6 % (0-5); Hematocrit 27.7 % (37-47); Hemoglobin 8.8 g/dL (12.0-15.0); Lymphocyte # 0.93 X10^3/ul (0.83-4.51); Lymphocyte % 14.8 % (19-41); Mean Corp Hgb Conc 31.8 g/dL (32-36); Mean Corpuscular Hgb 28.5 pg (27.0-32.0); Mean Corpuscular Volume 89.6 fL (81-99); Mean Platelet Vol. 11.4 fl (6.2-12.0); Monocyte% 14.3 % (0-10); NRBC Flagged by Analyzer 0 % (0-5); Neutrophil # 4.33 X10^3/uL (2.7-7.7); Platelet Count 296 K/mm3 (150-450); RBC Distribution Width CV 17.6 % (11.6-14.6); RBC Distribution Width SD 56.9 fl (35.1-43.9); Red Blood Count 3.09 M/mm3 (4.2-5.4); White Blood Count 6.3 K/mm3 (4.4-11.0)
== END | disposition home or self-care (01) ==
LOC: LAB 15:04
PROVIDERS: PCP Internal Medicine; Referring Provider Student in an Organized Health Care Education/Training Program; Visit Provider Student in an Organized Health Care Education/Training Program
DX: D64.9 Anemia, unspecified (principal)
CPT/HCPCS: 36415; 85025

== ENCOUNTER 2023-10-02 10:54 | Day surgery (SDC) | payer MEDICARE, SELFPAY ==
[2023-10-02] VITALS (8 sets, daily range): BP systolic 93–118; BP diastolic 51–62; PULSE 71–81; RESP 16–18; TEMP 36.4–36.7; O2SAT 96–100; BMI 20.2
[2023-10-02 11:03] LABS: INR Fingerstick 1.3; Prothrombin Time Fingerstick 13.9 SEC (11.7-14.9)
[2023-10-02] MEDS: Lactated Ringers 1,000 ML 15 ML IV (11:52)
--- NOTE | 2023-10-02 12:11 | PRE.ANES_ITS ---
ASA Classification* ASA Classification ASA Classification: 3 Assessment & Plan Anesthesia* Anesthesia Assessment Anesthesia Assessment: Discussed sedation and/or anesthesia options, risks, benefits, and alternatives with patient/parents/legal guardian/POA. Questions invited. The patient/parents/legal guardian/POA seems to understand and agrees to proceed with anesthesia plan. Reviewed the physical assessment, medical history, allergy history and patient home medications list prior to surgery/procedure/anesthetic and documented any changes. Performed airway and anesthesia risk assessments. Anesthesia Type Anesthesia Type: MAC (see written pre anesthesia record for full assessment) Anesthesia Focused Assessment* Temperature: 97.8 F Pulse Rate: 72 Blood Pressure: 118/62 Respiratory Rate: 17 Pulse Ox: 98 Airway Assessment Mouth opens: >3 cm Mallampati Score: II Focused Labs Anesthesia Preop lab: CBC WBC 6.3 K/mm3 (4.4-11.0) 09/03/23 15:07 RBC 3.09 M/mm3 (4.2-5.4) L 09/03/23 15:07 Hgb 8.8 g/dL (12.0-15.0) L 09/03/23 15:07 Hct 27.7 % (37-47) L 09/03/23 15:07 Plt Count 296 K/mm3 (150-450) 09/03/23 15:07 CHEMISTRY Potassium 3.5 mmol/L (3.5-5.1) 08/18/23 06:00 Sodium 139 mmol/L (136-145) 08/18/23 06:00 Magnesium 1.9 mg/dL (1.6-2.6) 08/14/23 05:45 Phosphorus 2.3 mg/dL (2.5-4.9) L 08/14/23 05:45 BUN 15 mg/dL (7-18) 08/18/23 06:00 Creatinine 0.51 mg/dL (0.55-1.02) L 08/18/23 06:00 Glucose 84 mg/dL (74-106) 08/18/23 06:00 TSH 0.76 uIU/mL (0.358-3.74) 03/27/23 06:47 COAG PT 13.9 SECONDS (11.7-14.9) 08/18/23 06:00 Urine Test Negative Negative 08/17/23 08:37 Pre-Assessment Diagnosis/Proposed Procedure Planned Operative Procedure(s): COLONOSCOPY Anesthesia History 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 When Was Last Pacemaker Check QUESTION #4 FULL TEXT: You/Your Family Experience fever (hyperthermia) with Anesthesia Last Oral Intake Last Oral intake: Last Oral Intake NPO since 10:00 10/02/23 11:48 Meds taken in AM with sips of Yes 10/02/23 11:48 water? 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 Female Yes 10/01/23 09:23 HX of Motion Sickness No 10/01/23 09:23 HX of N/V After Surgery No 10/01/23 09:23 Non-Smoker Yes 10/01/23 09:23 Duration of Surgery greater No 10/01/23 09:23 than 60 minutes Number of Risk Factors 2 10/01/23 09:23 PONV Score Moderate Risk 10/01/23 09:23 Height & Weight Height & Weight: Anesthesia: Height & Weight Height 5 ft 3 in 10/02/23 11:48 Weight: 52 kg 10/02/23 11:48 Body Mass Index (BMI) 20.2 10/02/23 11:48 Respiratory Assessment Respiratory Assessment - metal casting trades worker: Respiratory Tract Infection Hx - metal casting trades worker Hx Respiratory Tract Infection No 10/01/23 09:23 STOP Sleep Apnea STOP Sleep Apnea - metal casting trades worker: STOP Sleep Apnea - metal casting trades worker Hx Hypertension No 10/01/23 09:23 Hx Sleep Apnea No 10/01/23 09:23 CPAP BIPAP Do you snore loudly (louder No 10/01/23 09:23 than talking or can be heard Do you often feel tired/ No 10/01/23 09:23 fatigued/ sleepy during daytime? Has anyone observed you stop No 10/01/23 09:23 breathing during sleep? STOP Results Negative 10/01/23 09:23 QUESTION #5 FULL TEXT : Do you snore loudly (louder than talking or can be heard through closed doors)? 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 Tobacco Use Smoking Status Former smoker 10/01/23 09:23 Hx Tobacco Use No 10/01/23 09:23 Years Smoking Packs Smoked per Day Smoking Cessation Date was No - quit smoking greater 10/01/23 09:23 within the last 15 years than 15 years ago Hx Smoking Cessation Date 02/19/74 10/01/23 09:23 Hx Smoking Cessation No 10/01/23 09:23 Counseling Hematologic Medial History Hematologic Hx - metal casting trades worker: Hematologic Medical Hx - inpatient pharmacist Hx of Blood Transfusion Yes 10/01/23 09:23 Hx of Transfusion in last 3 Yes 10/01/23 09:23 Months Date of Last Transfusion (if 08/17/23 10/01/23 09:23 within last 3 months) Ever experience any problems No 10/01/23 09:23 with transfusion(s)? Specify any problems Hx of Preganancy in last 3 No 10/01/23 09:23 Months Nurse Filling Out Transfusion [facility] 10/01/23 09:23 & Questions: Date: 10/01/23 10/01/23 09:23 Time: 09:35 10/01/23 09:23 Patient unable to answer at this time (ie. confused, unrespo /Reproduction History /Reproductive History - metal casting trades worker: /Reproductive Hx- metal casting trades worker Hx Now No 10/01/23 09:23 Gestational Age (in weeks): EDC: Hx Hx Para Hx Section SAB Active Medications Active Medications: Current Medications Generic Name Dose Route Start Last Admin Trade Name Freq PRN Reason Stop Dose Admin Lactated Ringer's 1,000 mls @ 15 mls/hr 10/02/23 11:30 10/02/23 11:52 IV 15 mls/hr .Q48H MARGARETTE Administration PFSH Medical History Wears glasses Walker as ambulation aid Ambulates with cane Arthritis Excessive bleeding Easy bruising History of ulceration History of GI bleed Gastric reflux Emphysema, unspecified Cardiology follow-up encounter History of edema Severe aortic stenosis ABLA (acute blood loss anemia) Thrombocytopenia Adult failure to thrive Leg edema Rheumatoid arthritis COPD (chronic obstructive pulmonary disease) Former smoker DVT (deep venous thrombosis) Pulmonary embolism Colitis COVID-19 Histoplasmosis Home Medications ?Medication ?Instructions ?Recorded ?Last Taken ?Type multivitamin (Daily Multi-Vitamin 1 tab PO DAILY supplement 03/19/23 10/01/23 History tablet) vitamins A,C,G-tdfe-hynyqt 2,148 2 tab PO BID eye health 03/19/23 10/01/23 History mcg-113 mg-45 mg-17.4 mg tablet (PreserVision AREDS) gabapentin 300 mg capsule 300 mg PO Q12 nerve pain #0 caps 04/05/23 10/01/23 Rx acetaminophen 500 mg tablet 1,000 mg (2 x 500 mg) PO Q6H PRN 04/27/23 10/02/23 Rx PRN Pain Score 1-10 #0 tabs potassium chloride 20 mEq 20 meq PO BIDCM #0 tabs 04/27/23 10/01/23 Rx tablet,extended release(part/cryst) fluticasone 250 mcg-salmeterol 50 1 ea inhalation BID 08/13/23 10/02/23 History mcg/dose blistr powdr for inhalation fluticasone propionate 50 1 spray intranasal DAILY 08/13/23 10/02/23 History mcg/actuation nasal spray,suspension furosemide 20 mg tablet 20 mg PO DAILY PRN edema 08/13/23 10/01/23 History itraconazole 10 mg/mL oral solution 200 mg PO BID 08/13/23 08/12/23 History tiotropium bromide 2.5 2 puff inhalation DAILY 08/13/23 10/02/23 History mcg/actuation mist for inhalation (Spiriva Respimat) diclofenac sodium 1 % topical gel 4 g topical BID PRN PRN knee pain 08/18/23 10/02/23 Rx (Voltaren Arthritis Pain) #100 grams warfarin 5 mg tablet See Rx Instructions .Route 08/18/23 09/27/23 Rx .COMPLEX #30 tabs omega 2-vej-rfb-fish oil 1,200 mg 1 cap PO DAILY 10/01/23 Unknown History (144 mg-216 mg) capsule (Fish Oil) pantoprazole 40 mg tablet,delayed 40 mg PO BID 10/02/23 10/02/23 History release Allergy/AdvReac Type Severity Reaction Status Date / Time Penicillins Allergy Severe Anaphylaxis Verified 10/02/23 11:42 Surgical History History of back surgery History of esophagogastroduodenoscopy (EGD) History of tonsillectomy History of embolic filter insertion Hx of foot surgery Social History household members: none Smoking Status: Former smoker alcohol intake: never substance use type: does not use Review of Systems (Anesthesia) ROS Narrative System reviewed and no additional complaints, except as documented.
--- NOTE | 2023-10-02 12:30 | EGD_PTH ---
PATIENT: ALENA BUSTAMANTE LOC: EN U#:[id number] AGE/SX: 78/F ROOM: RE10/02/[address]: Dr. Mathew Orellana DO : 1945 BED: DIS: 10/02/2023 SPEC #: [id number] RECD: 10/02/23 16:30 STATUS: AMMY ANSELMO #: [id number] SHAKA: 10/02/23 12:[address]: Mathew Orellana DEPT: SURGICAL PATHOLOGY RECD BY: Wilda Travis ENTERED: 10/03/23 07:10 SP TYPE: EGD BIOPSY SYLVIE DR: Dr. Deyanira Pak MD Tissues: A - Duodenum, NOS B - Cecum, NOS Procedures: Surgery Specimen Level IV HEADER OPERATION: EGD with biopsy, colonoscopy with biopsy PRE-OP DIAGNOSIS: Gastric ulcer, duodenitis TISSUE SUBMITTED: A- Duodenum biopsy, B- Cecal polyp biopsy MICROSCOPIC DIAGNOSIS A. Duodenum, biopsy: Mild chronic and focal acute inflammation, non-specific. B. Cecal polyp, biopsy: Tubular adenoma. / 10/04/2023 MICROSCOPIC DESCRIPTION Slides are reviewed. GROSS DESCRIPTION A. Received in fixative is one container labeled with the patient's name and designated Duodenum biopsy. The specimen consists of two irregular fragments of light odell soft tissue that in aggregate measure 0.6 x 0.3 x 0.1 cm. The specimen is totally submitted in one cassette. B. Received in fixative is one container labeled with the patient's name and designated Cecal polyp biopsy. The specimen consists of one irregular fragment of light odell soft tissue that measures 0.4 x 0.3 x 0.1 cm. The specimen is totally submitted in one cassette. 10/03/2023 TC:2 CPT:48171h9
--- NOTE | 2023-10-02 12:46 | HP.PCM_ITS ---
History and Physical Date of Admission: 10/02/23 F/U appt from ED on 08.13.23 for GI bleed. Pt states she is feeling good. Has swelling in lower extremities. Pt takes Pantoprazole 40mg, gabapentin 300mg, and suralfate 1gr. FORMERLY [facility], 1928–1983 Medical History Severe aortic stenosis Thrombocytopenia Adult failure to thrive Leg edema Rheumatoid arthritis COPD (chronic obstructive pulmonary disease) Former smoker DVT (deep venous thrombosis) Pulmonary embolism Colitis COVID-19 Histoplasmosis Surgical History History of embolic filter insertion Hx of foot surgery Social History household members: none Smoking Status: Former smoker alcohol intake: never substance use type: does not use HPI HPI Chief Complaint: lower extremity cellulitis Details: ALENA BUSTAMANTE, is a 78 F who presents to the office today for hospital f/u. Patient was hospitalized from 08/13/23-08/18/23 for GI bleed. She presented to the ED initially on 08/12 for blood in her stool and a fall. Her hemoglobin in the ED was 5.4 and she received 2 units of blood. INR was also elevated at 4.8 and vitamin K given. Dr. Orellana performed EGD on 08/13 and found Oozing duodenal ulcer with pigmented material. Treated with a heater probe. Biopsied. She had no other signs of bleeding until 08/15 when she had a maroon colored stool. Dr. Orellana did another EGD and found Normal esophagus.Small hiatal hernia. Non- bleeding duodenal ulcer with no stigmata of bleeding.Three bleeding angiodysplastic lesions in the jejunum. Treated with a heater probe. Office visit today (09/03/23), patient is doing well and has no GI concerns. She has been taking pantoprazole 40 mg BID and sucralfate 1g BID AC. She does admit to some painful lower extremity edema that she is seeing cardiology for. She denies hematemesis, dyspepsia, melena, diarrhea or constipation. She is taking her warfarin at night. Recommended taking in the morning but per patient her tripe washer prefers her to take in the morning. ROS Const Constitutional: No anorexia, fatigue, fever(s), weight change or sleep problems Eyes Eyes: No change in vision ENT ENT: No abnormal hearing, difficulty swallowing, mouth lesions, tongue swelling or throat swelling Resp Respiratory: No cough or shortness of breath Cardio Cardiology: No chest pain at rest, chest pain with exertion, shortness of breath or dyspnea on exertion Gastro GI: No difficulty swallowing Genitourinary-Female: No difficulty urinating or burning urination Musc Musculoskeletal: Positive for joint pain, joint swelling and Arthritis Skin Skin: No hair loss in leg, yellowing of the eye, itchy eyes, rash, skin ulcer or skin swelling Neuro Neurology: No abnormal hearing, abnormal movements, confusion, unsteady gait/balance or memory loss Psych Psychiatric: No anxiety, No confusion and No memory loss Endo Endocrine: No fatigue or weight change Aller/Imm Allergy/Immunologic: No itchy eyes, throat swelling or tongue swelling Jayme/Lymp Hematologic/Lymphatic: Positive for easy bruising Exam Const General: cooperative and comfortable Nutritional Appearance: average body habitus and well nourished HENMT Head: normal to inspection Ears: hearing grossly normal bilaterally Nose: external nose normal Face and sinus: normal facial exam Mouth: oral mucosae normal Throat: posterior oropharynx normal Eyes General: appearance normal, both eyes and all related structures Neck Neck: normal visual inspection Chest Chest palpation & inspection: normal inspection of the chest and normal palpation of entire chest wall Resp Effort & Inspection: normal respiratory effort Auscultation: Bilateral: Clear to Auscultation Cardio Palpation: normal PMI Rate: regular rate Rhythm: regular rhythm GI Inspection: normal to inspection Auscultation: normal bowel sounds Percussion: normal to percussion Palpation: no hepatosplenomegaly Skin General: no rashes or lesions noted Neuro General: patient alert Extrem General: normal to inspection and edema Psych Affect: normal affect Assessment and Plan Assessment and Plan (1) Gastric ulcer: Status: Acute (2) Duodenitis: Status: Acute Orders: Orders CBC W/Diff, Automated Today D64.9 - Anemia, unspecified Plan -Patient underwent two EGDs while hospitalized in July and was found to have a duodenal ulcer as well as multiple angiodysplastic lesions. She has no GI concerns at this time and no signs of bleeding. -Continue taking pantoprazole 40 mg BID -Ordered CBC to monitor hemoglobin -Repeat EGD and colonoscopy in 2-3 months to reassess -Discussed plan with Dr. Orellana and he recommended getting capsule endoscopy at the time of colonoscopy and EGD so she will only have to do one prep. Will call patient and discuss this plan. I have examined the patient and the H&P has been reviewed. There are no clinical changes since date of exam.
--- NOTE | 2023-10-02 13:29 | PCM.POST.ANE ---
Anesthesia: Postop Eval I Current Vital Signs Temperature: 98 F Pulse Rate: 80 Blood Pressure: 93/51 Respiratory Rate: 18 Pulse Ox: 98 Assessment Airway patent: Yes Spontaneous unlabored respirations: Yes nausea: No Vomiting: No Anesthesia Complication: No Fluid Hydration Crystalloid volume administer (ml): 400 Total IV fluid infused: 400 Progress Note Anesthesia document: Postop Eval 1 completed: Yes
--- NOTE | 2023-10-02 14:07 | POSTOPAN2_ITS ---
Anesthesia Postop Eval I Sum Postop Eval Completion status Anesthesia document: Postop Eval 1 completed: Yes Anesthesia Postop Eval I Summary Anesthesia Postop Eval I Summary: Anesthesia Postop Eval I: Assessment Summary Airway patent Yes 10/02/23 13:29 ARCHITECTURE DEPARTMENT CHAIR.CSIR Spontaneous unlabored Yes 10/02/23 13:29 ARCHITECTURE DEPARTMENT CHAIR.CSIR respirations Mental status nausea No 10/02/23 13:29 ARCHITECTURE DEPARTMENT CHAIR.CSIR Vomiting No 10/02/23 13:29 ARCHITECTURE DEPARTMENT CHAIR.CSIR Anesthesia Postop Eval I: Fluid Summary Crystalloid volume administer 400 10/02/23 13:29 ARCHITECTURE DEPARTMENT CHAIR.CSIR (ml) Colloids volume administered ( ml) Blood Product volume administered (ml) Total IV fluid infused 400 10/02/23 13:29 ARCHITECTURE DEPARTMENT CHAIR.CSIR Anesthesia Postop Eval I: Summary Notes Anesthesia Complication No 10/02/23 13:29 ARCHITECTURE DEPARTMENT CHAIR.CSIR Anesthesia Complication Comment: Post-operative progress note Anesthesia: Postop Eval II Evaluation Mental status: Awake Pain Level: 0 nausea: No Vomiting: No
--- NOTE | 2023-10-02 14:07 | PCM.POSTANE2 ---
Anesthesia Postop Eval I Sum Postop Eval Completion status Anesthesia document: Postop Eval 1 completed: Yes Anesthesia Postop Eval I Summary Anesthesia Postop Eval I Summary: Anesthesia Postop Eval I: Assessment Summary Airway patent Yes 10/02/23 13:29 MASTER POLICE DETECTIVE.CSIR Spontaneous unlabored Yes 10/02/23 13:29 MASTER POLICE DETECTIVE.CSIR respirations Mental status nausea No 10/02/23 13:29 MASTER POLICE DETECTIVE.CSIR Vomiting No 10/02/23 13:29 MASTER POLICE DETECTIVE.CSIR Anesthesia Postop Eval I: Fluid Summary Crystalloid volume administer 400 10/02/23 13:29 MASTER POLICE DETECTIVE.CSIR (ml) Colloids volume administered ( ml) Blood Product volume administered (ml) Total IV fluid infused 400 10/02/23 13:29 MASTER POLICE DETECTIVE.CSIR Anesthesia Postop Eval I: Summary Notes Anesthesia Complication No 10/02/23 13:29 MASTER POLICE DETECTIVE.CSIR Anesthesia Complication Comment: Post-operative progress note Anesthesia: Postop Eval II Evaluation Mental status: Awake Pain Level: 0 nausea: No Vomiting: No
== END 2023-10-02 14:31 | disposition home or self-care (01) ==
LOC: EN 10:56 → AC 10:58
PROVIDERS: PCP Internal Medicine; Referring Provider Internal Medicine; Visit Provider Internal Medicine Gastroenterology
PROC: 0DJD8ZZ Inspection of Lower Intestinal Tract, Via Natural or Artificial Opening Endoscopic (ICD-10-PCS; CPT 45378; principal; 2023-10-02 12:25)
DX: K25.3 Acute gastric ulcer without hemorrhage or perforation (principal); J44.9 Chronic obstructive pulmonary disease, unspecified; K29.80 Duodenitis without bleeding; D12.0 Benign neoplasm of cecum; K44.9 Diaphragmatic hernia without obstruction or gangrene; R60.0 Localized edema; D50.9 Iron deficiency anemia, unspecified; Z79.01 Long term (current) use of 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; Z87.891 Personal history of nicotine dependence
CPT/HCPCS: 45380; 43239; 36416; 85610; 88305; J7120; J2405

== ENCOUNTER → 2024-05-28 | Outpatient (CLI) | payer MEDICARE, SELFPAY ==
--- NOTE | 2024-05-28 08:05 | PCM.CR.HP2 ---
CR - History & Physical General Arrival date:: 05/28/24 Arrival time:: 08:05 Date of Referral:: 05/22/24 Date of CR Evaluation:: 05/28/24 Referring Physician: Dr. Saeed Primary Diagnosis: s/p TAVR History of Present Cardiac Event Onset Date Heart valve replacement or repair:: Yes (Onset 05/02/24) Medications Ambulatory Orders ?Medication ?Instructions ?Recorded multivitamin (Daily Multi-Vitamin 1 tab PO DAILY supplement 03/19/23 tablet) vitamins A,C,F-avov-vbchoh 2,148 2 tab PO BID eye health 03/19/23 mcg-113 mg-45 mg-17.4 mg tablet (PreserVision AREDS) gabapentin 300 mg capsule 300 mg PO Q12 nerve pain #0 caps 04/05/23 acetaminophen 500 mg tablet 1,000 mg (2 x 500 mg) PO Q6H PRN 04/27/23 PRN Pain Score 1-10 #0 tabs potassium chloride 20 mEq 20 meq PO BIDCM #0 tabs 04/27/23 tablet,extended release(part/cryst) fluticasone 250 mcg-salmeterol 50 1 ea inhalation BID 08/13/23 mcg/dose blistr powdr for inhalation fluticasone propionate 50 1 spray intranasal DAILY 08/13/23 mcg/actuation nasal spray,suspension furosemide 20 mg tablet 20 mg PO DAILY PRN edema 08/13/23 itraconazole 10 mg/mL oral solution 200 mg PO BID 08/13/23 tiotropium bromide 2.5 2 puff inhalation DAILY 08/13/23 mcg/actuation mist for inhalation (Spiriva Respimat) diclofenac sodium 1 % topical gel 4 g topical BID PRN PRN knee pain 08/18/23 (Voltaren Arthritis Pain) #100 grams warfarin 5 mg tablet See Rx Instructions .Route 08/18/23 Held on 10/01/23. .COMPLEX #30 tabs Instructions: ON HOLD FOR COLONOSCOPY omega 1-ejl-plb-fish oil 1,200 mg 1 cap PO DAILY 10/01/23 (144 mg-216 mg) capsule (Fish Oil) pantoprazole 40 mg tablet,delayed 40 mg PO BID 10/02/23 release Allergies Allergies Penicillins Allergy (Severe, Verified 10/02/23 11:42) Anaphylaxis Sleep Disorder Evaluation Hx of Sleep Apnea: No Do you snore loudly (louder than talking or can be heard through closed doors)?: No Do you often feel tired/ fatigued/ sleepy during daytime?: No Has anyone observed you stop breathing during sleep?: No History of Hypertension (for STOP score): Yes STOP Results: Negative Advanced Directives Advanced Directives Do you have a Healthcare Power of Web Marketing Assistant?: Yes Living Will: Yes Advance Directives Information Provided: Yes Advance Directives on File: Yes DNR Order?:: No Past Medical History Covid-19 Screening Physicial Symptoms Other Clinical Concerns Exposure Risk Pertinent Comorbidities 65 years or older:: Yes Has a serious heart condition:: Yes Past Medical Illness Medical History Wears glasses Walker as ambulation aid Ambulates with cane Arthritis Excessive bleeding Easy bruising History of ulceration History of GI bleed Gastric reflux Emphysema, unspecified Cardiology follow-up encounter History of edema Severe aortic stenosis ABLA (acute blood loss anemia) Thrombocytopenia Adult failure to thrive Leg edema Rheumatoid arthritis COPD (chronic obstructive pulmonary disease) Former smoker DVT (deep venous thrombosis) Pulmonary embolism Colitis COVID-19 Histoplasmosis Past Surgical History Surgical History History of back surgery History of esophagogastroduodenoscopy (EGD) History of tonsillectomy History of embolic filter insertion Hx of foot surgery Social History Smoking History Smoking Status: Former smoker Years Smokin Packs Smoked per Day: 1 (stopped in the late ) Alcohol Use Alcohol Usage: No Substance Abuse Hx Substance Use: No Occupation Occupation (List type of work in comments):: Retired Social Environment Status Marital Status: Current Living Arrangements Living Environment:: Alone Children How many children do you have?: 0 Safety Do you feel safe in your surroundings?: Yes Assistance Do you need any assistance at home?: no Review of Systems Review of Systems Hints Review of Present Symptoms: Reports Fatigue, Appetite - Normal and Appetite - Special Diet; Denies Shortness of Breath at Rest, Shortness of Breath with Exertion, PVD, Operative Discomfort, Angina, Wound Healing, Dizziness/Lightheadedness, Heart Arrhythmia/Irregularities, Sleep - Normal or Sexual Changes Pain Is Patient Pain Free?: No Pain Location: other (arthritis pain ) Risk Factor Assessment Chief Complaint Chief Complaint: s/p TAVR Vital Signs Pulse Ox: 98 Blood Pressure: 100/54 Pulse Pulse Rate: 84 Hypertension Blood Pressure Sitting - Right Arm: 100/54 Obesity Height: 5 ft 3 in Weight:: 124 lb Weight in Pounds: 124.0 lbs Body Mass Index (BMI): 21.9 Physical Inactivity Physical Inactivity: None Risk Stratification Risk Guidelines: Lowest Risk: Risk Factor for Smoking and Risk Factor for Obesity, Moderate Risk: Risk Factor for Dyslipidemia, Risk Factor for Diabetes, Risk Factor for Sedentary Lifestyle and Risk Factor for Depression and Highest Risk: Risk Factor for Hypertension For Smoking Smoking Risk Guidelines For Dyslipidemia Dyslipidemia Risk Guidelines For Diabetes Mellitus Diabetes Risk Guidelines For Obesity/Overweight Obesity/Overweight Risk Guidelines For Hypertension Hypertension Risk Guidelines For Sedentary Lifestyle Sedentary Lifestyle Risk Guidelines For Depression Depression Risk Guidelines Motivation Motivation to Participate On a scale of 1 to 10, how prepared are you to commit to attending program?: 10 What do you see as barriers to successfully being able to complete the program?: nothing What do you see as the benefits of succesfully completing the program? In other words, what do you hope to get out of participating in the program?: back to normal life, feeling healthy Are there issues you are dealing with that will interfere with completing the program?: no Do you have a spouse or signficant other, family or friends who will help support you to complete the program?: yes
[2024-05-28 08:10] VITALS: BP 100/54; PULSE 84; O2SAT 98
--- NOTE | 2024-05-28 08:11 | CR.ITP_ITS ---
Diagnosis General Information Admitting Diagnosis: s/p TAVR Personal Learning Style:: Audio/Visual Barriers to Learning: No Barriers Stage of change r/t lifestyle modifications:: Contemplation Gave educational material for:: Treating Heart Disease, How The Heart Works, What it means to have Heart Disease, How Coronary Artery Disease is Diagnosed, Heart Procedures, What Heart Medications Do, Risk Factors & Modifications, Celia ng an Active Life, Nutrition, Emotions & Heart Disease, Stress Management & Relaxation and Sleep Disorders & Heart Disease Education/Goals Cardiac Rehabilitation Goals Personal Goals: Initial Assessment: Improve management of stress and emotions, Improve energy level, Participate in home exercise program, Get back to work, or to resume activities faster, Improve muscle strength and endurance and Improve diet and eating habits (eat healthier) Scale for measuring improvement of personal goals Diagnosis & Disease Process Outcomes/Goals: Pt IDs own risk factors & lifestyle modifications by Session 10, Verbalizes symptoms of angina & response by session 3., Pt independently manages and Other Additional Outcomes/Goals: Plan/Interventions: Assist Pt to ID & engage in lifestyle modification to reduce CVD risk, Instruct on individual risk factors, Review symptoms of angina & emergency actions, Review secondary diagnosis & identify educational needs. and Other see comment 30 day Reassessments:: Not Met 30 day Reassessments:: Not Met 30 day Reassessments:: Not Met 30 day Reassessments:: Not Met Final Reassessments:: Not Met Safety Referral to Physical Therapy: No Referral to [facility] Case Management: No Fall Risk Assessed:: Yes Assistive Devices:: None (uses a cane in the winter) Exercise - Initial Assessment Visit Date of Eval: 05/28/24 Mets: Pre-: >3 METS for 30 minutes by discharge, >5 METS for 30 minutes by discharge, >7 METS for 30 minutes by discharge and Unable to meet goal due to: (see comment below) Physician Prescribed Exercise Modalities: Nicolas Elkins AD-7, SciFit Stepper, SciFit Pro-II Ergometer and SciFit Lateral [place] Baggage Screener Frequency: 3x/week for 12 weeks [36 sessions] Intensity: 60-80% of age predicted maximum heart rate reserve Duration: 30 - 45 minutes Current METSs:: 3 Target Heart Rate:: 86-108 Resting Blood Pressure: 100/54 EKG Type: NSR L anterior fascicular block Outcomes & Goals Goals:: Verbalizes understanding of THR, RPE & goal METS by session 6, Documents in home exercise log/reports 30 min aerobic 5 day/wk by DC, Demonstrates accurate pulse taking by DC and Other additional outcome/goals: see below Intervention & Plan Exercise Program Goals: Instruct on personal THR & RPE, Instruct on MET level & personal MET goal, Show patient to take own pulse /validate performance until accurate, Instruct on home exercise and Other additional plan/int Physical Activity Home Exercise Physical Activity - Home Exercise: Safe Exercise, Warm-up, Self-monitoring, Cool-Down, Home Exercise > 30 min Daily and Sitting Time <3 hours/daily Outcomes & Goals Outcomes/Goals: Demonstrates correct Warm-up/exercise Cool-Down (S3) if = 2.5 M ETs, Verbalizes symptoms of exercise intolerance by Session 3 (S3), Demonstrate safe equipment use (S3) & follows exercise prescrition (6) and Other: See below Intervention & Plan Plan/Intervention: Instruct warm-up & cool-down if exercising at > 2 METs, Instruct on symptoms of exercise intolerance & actions to take, Instruct & monitor on saf, Assess intial functional capacity & safety risk and Other See below Nutrition - Initial Assessment Program Goals Nutrition Program Goals Patient has diagnosis of Hyperlipidemia (ICD E78)?: No Visit Date of Eval: 05/28/24 (initial eval ) Cholesterol/Lipids (Other Core Measures) Determine presence & major risk factors that modify LDL goal: Hypertension or hypertensive medication, Low HDL cholesterol <40 mg/dL*, Family history of premature CHD in Male < 55 years: female <65 yearsFa and Age men > 45 years; women >/= 55 years Outcomes/Goals: Pt IDs own risk factors & lifestyle modifications by Session 10, Verbalizes symptoms of angina & response by session 3., Pt independently manages and Other Additional Outcomes/Goals: Intervention/Plan: Advocate for lipid panel cholesterol medication if applicable, Instruct on personal lipid levels & lipid goals/NCEP guidelines, Instruct on cholesterol and Other additional plan/int Diabetes (Other Core Measures) Diabetes Type: Not Applicable Weight Mgt (Other Care) Height: 5 ft 3 in Weight:: 124 lb BMI: 21.9 Diagnosis Overweight/Obesity BMI> 30% ICD-10 E66: No Diagnosis High BMI/Morbid Obesity BMI> 35% ICD-10 Z68: No Outcomes/Goals: Pt sets, maintains & shows weight loss goal & trend during rehab and Other additional outcomes/goals Intervention/Plan: Instruct on ideal BMI & set weight loss goal w/patient, Assist pt to ID & incorporate diet changes for weight loss by S9, Refer to Structured Weight Loss program as appropriate, Encourage goal of using 250- 300dcal per session for weight loss and Other additional plan/interventions Healthy Eating Habits Will attend diet classes:: Yes Outcomes/Goals:: Consume diet rich in vegs,fruits,whole grain/high fiber,fish,lean meat, Limit sat/trans fats,cholesterol & added salts & sugars and Other additional outcome/goals: Intervention/Plan:: Assess current eating habits and Other Additional plan/interventions Education Gave educational materials for:: Signs & symptoms of hypoglycemia, Signs & symptoms of hyperglycemia, Relate diabetes to coronary artery disease and Healthy eating Core - Initial Assessment Visit Date of Eval: 05/28/24 (initial evla ) Medication Compliance Preventative Medication(s):: Aspirin and Warfarin/Coumadin H/O mental health issues: depression, anxiety, or addiction?: No Doesn?t believe in the benefits of treatment?: No Believes medications are unnecessary or harmful?: No Has a concern about medication side effects?: No Expresses concern over the cost of medications?: No Outcomes/Goals: Verbalizes medications,desired effect & common side effects @ DC, Pt self-reports following medication regimen, Keeps card in wallet w/medications listed by DC and Other additional outcome/goals: Interventions/plans: Instruct on medication effects & side effects, Review medication list w/patient every two weeks, Instruct importance of taking meds as ordered & assist problem solving and Other additional Tobacco Use Tobacco Use: Non-smoker Hypertension Hypertension Diagnosis:: Hypertension ICD-10 I10 Resting Blood Pressure:: 100/54 [place] [employer] Hypertension Guidelines Outcomes/Goals: Able to verbalize/achieve optimal blood pressure <130/80, Incorporates diet changes & exercise for blood pressure control by DC and Other additional outcomes/goals Interventions/plan: Instruct on optimal blood pressure, hypertension & medications, Instruct on effects of sodium, alcohol, stress, exercise &hypertension and Other additional plan/interventions Tobacco Cessation Referral Smoking Cessation Referral:: No Individual Education/Counseling:: No Education Schedule Given:: Yes Psychosocial - Initial Assess VIsit Date of Eval: 05/28/24 (initial eval ) History of previous Mental disease:: No Target Goals Target Goals Psychosocial Test Tool Used:: [employer] QOL Cardiac and PHQ-9 Questionnaire phq-9 Severity Referral to Behavioral Health PS - Interventions: Yes: Attend Stress Management Classes Outcomes/Goals: See list Psychosocial Outcomes/Goals:: ID's personal stressors & 2 strategies to manage stress by discharge and Other Additional outcome/goals: Intervention/Plan: See List Interventions/Plan:: Assess stressors,coping strategies & signs of derpression on admission, Instruct/assist pt to develop coping & personal stress Mgt strategies, Refer to Behavioral Health if appropriate, Refer to Physician if appropriate, Instruct patient to recognize signs & symptoms of depression, Instruct patient to recog and Other additional plan/intervention Patient Health Questionnaire PHQ-9 Screening Initial Assessment: 1. Little interest or pleasure in doing things: Not at all 2. Feeling down, depressed, or hopeless: Not at all 3. Trouble falling or staying asleep, or sleeping too much: Several days 4. Feeling tired or having little energy: Not at all 5. Poor appetite or overeating: Not at all 6. Feeling bad about yourself -- or that you are a failure or have let yourself or your family down: Not at all 7. Trouble concentrating on things, such as reading the newspaper or watching television: Not at all 8. Moving or speaking so slowly that other people could have noticed. Or the opposite - being so fidgety or restless that you have been moving around a lot more than usual: Not at all 9. Thoughts that you would be better off , or of hurting yourself in some way: Not at all How difficult have these problems made it for you to do your work, take care of things at home, or get along with other people?: Not difficult at all Total Score: 1 CODEY-Q SV Test Statements CAD is a disease of the arteries in the heart: False Examples of risk factors for heart disease: True Angina is chest pain or discomfort: True The benefits of resistance training include: True Eating more meat and dairy products: False Anti-platelet medications such as aspirin are important: I Don't Know The only effective way to manage stress: False An exercise warm-up slowly increases heart rate: True Prepared, processed foods usually have high sodium: True Depression is common after a heart attack: I Don't Know The statin medications lower cholesterol: I Don't Know To control blood pressure, lower the amount of sodium: True If someone gets chest discomfort during walking: False Transfats are partially hydrogenated vegetable oils: True Sleep apnea that is not treated increases the risk: False To control cholesterol, one should become a vegetarian: False Someone knows if he/she is exercising at the right level: True Diabetes cannot be prevented with exercise & health eating: I Don't Know Stress is a large risk for heart attack: True A diet that can help lower blood pressure is rich in: True Total Score Total Correct Responses: 16 Self-Efficacy 6-Item Scale Initial Assessment: We would like to know how confident you are in doing certain activities. Please select your confidence level for: Fatigue Select Number: 5 Physical Discomfort or Pain Select Number: 10 Emotional Distress Select Number: 10 Other Symptoms or Health Problems Select Number: 5 Different Tasks and Activities Select Number: 10 Medication Select Number: 8 Total Score:: 8 Nutrition Survey Nutrition Survey Instructions Scoring Instructions Nutrition Survey Initial: Have you lost >10 lbs over the past 2 months without trying?: No Are you following a special diet at home for diabetes, low fat, or low salt?: No Are you interested in meeting with a dietitian for help understanding your diet?: No Do you eat less than 3 meals a day?: No Do you eat fatty meats (oliver, sausage, ribs, etc), fried foods, desserts, large amounts of salad dressings, margarine, butter, or cheese most days?: No Do you have food allergies? [Enter types in comment field]: No Do you eat in restaurants more than 3 times a week?: No Do you season food with salt, seasoning salt, or garlic salt?: No Do you used canned, boxed, frozen meals, or soups, seasoning packets?: No Total Score:: 0 Exercise - 30-day Assessment Physician Prescribed Exercise Modalities: Nicolas Elkins-7, SciFit Stepper, SciFit Pro-II Ergometer and SciFit Lateral [place] Baggage Screener Exercise - 60-day Assessment Physician Prescribed Exercise Modalities: Nicolas Elkins-7, SciFit Stepper, SciFit Pro-II Ergometer and SciFit Lateral [place] Exercise - 90-day Assessment Physician Prescribed Exercise Modalities: Nicolas Elkins-7, SciFit Stepper, SciFit Pro-II Ergometer and SciFit Lateral [place] Exercise - Final/Discharge Physician Prescribed Exercise Modalities: Nicolas Elkins AD-7, SciFit Stepper, SciFit Pro-II Ergometer and SciFit Lateral [place] Baggage Screener Frequency: 3x/week for 12 weeks [36 sessions] Intensity: 60-80% of age predicted maximum heart rate reserve Current METSs:: 3 Target Heart Rate:: 86-108 Nutrition - 30-Day Assessment Weight Mgt (Other Care) Height: 5 ft 3 in Weight:: 124 lb BMI: 21.9 Nutrition - 60-Day Assessment Weight Mgt (Other Care) Height: 5 ft 3 in Weight:: 124 lb BMI: 21.9 Core - Final Assessment Hypertension Resting Blood Pressure:: 100/54 [place] [employer] Hypertension Guidelines Core - 60-Day Assessment Hypertension Resting Blood Pressure:: 100/54 [place] [employer] Hypertension Guidelines Psychosocial - 30-Day Assess Target Goals Target Goals Referral to Behavioral Health PS - Interventions: Yes: Attend Stress Management Classes Psychosocial - 60-Day Assess Target Goals Target Goals Referral to Behavioral Health PS - Interventions: Yes: Attend Stress Management Classes Psychosocial - 90-Day Assess Target Goals Target Goals Referral to Behavioral Health PS - Interventions: Yes: Attend Stress Management Classes Psychosocial - Final Assessmen Target Goals Target Goals Referral to Behavioral Health PS - Interventions: Yes: Attend Stress Management Classes Nutrition - 90-Day Assessment Weight Mgt (Other Care) Height: 5 ft 3 in Weight:: 124 lb BMI: 21.9 Nutrition - Final Assessment Program Goals Patient has diagnosis of Hyperlipidemia (ICD E78)?: No Weight Mgt (Other Care) Height: 5 ft 3 in Weight:: 124 lb BMI: 21.9
[2024-05-28 08:20] VITALS: BP 100/54
[2024-05-28 08:23] VITALS: BMI 21.9
[2024-05-28 09:01] VITALS: BMI 21.9
== END | disposition home or self-care (01) ==
PROVIDERS: PCP Internal Medicine
DX: I35.0 Nonrheumatic aortic (valve) stenosis (principal); Z95.2 Presence of prosthetic heart valve

== ENCOUNTER 2024-06-18 09:15 | Outpatient (RCR) | payer MEDICARE, SELFPAY ==
[2024-05-28 09:01] VITALS: BMI 21.9
== END 2024-06-18 23:59 ==
LOC: CR 09:15
PROVIDERS: PCP Internal Medicine
DX: I35.0 Nonrheumatic aortic (valve) stenosis (principal); Z95.2 Presence of prosthetic heart valve
CPT/HCPCS: 93798

== ENCOUNTER 2024-07-18 09:15 | Outpatient (RCR) | payer MEDICARE, SELFPAY ==
[2024-05-28 09:01] VITALS: BMI 21.9
--- NOTE | 2024-06-27 08:09 | PCM.CR.ITP ---
Exercise - Initial Assessment Visit Session #:: 12 Physician Prescribed Exercise Modalities: Treadmill, SciFit Stepper and SciFit Pro-II Ergometer Nutrition - Initial Assessment Weight Mgt (Other Care) Height: 5 ft 3 in Weight:: 129 lb 8 oz BMI: 22.9 Psychosocial - Initial Assess Target Goals Target Goals Referral to Behavioral Health PS - Interventions: Yes: Attend Stress Management Classes Patient Health Questionnaire PHQ-9 Screening 30-Day Re-eval Assessment: 1. Little interest or pleasure in doing things: Not at all 2. Feeling down, depressed, or hopeless: Not at all 3. Trouble falling or staying asleep, or sleeping too much: Several days 4. Feeling tired or having little energy: Not at all 5. Poor appetite or overeating: Not at all 6. Feeling bad about yourself -- or that you are a failure or have let yourself or your family down: Not at all 7. Trouble concentrating on things, such as reading the newspaper or watching television: Not at all 8. Moving or speaking so slowly that other people could have noticed. Or the opposite - being so fidgety or restless that you have been moving around a lot more than usual: Not at all 9. Thoughts that you would be better off , or of hurting yourself in some way: Not at all How difficult have these problems made it for you to do your work, take care of things at home, or get along with other people?: Not difficult at all Total Score: 1 Self-Efficacy 6-Item Scale 30-Day Re-eval Assessment: We would like to know how confident you are in doing certain activities. Please select your confidence level for: Fatigue Select Number: 5 Physical Discomfort or Pain Select Number: 10 Emotional Distress Select Number: 10 Other Symptoms or Health Problems Select Number: 5 Different Tasks and Activities Select Number: 10 Medication Select Number: 8 Total Score:: 8 Nutrition Survey Nutrition Survey Instructions Scoring Instructions Exercise - 30-day Assessment Visit Date of Eval: 06/27/24 Session #:: 12 Physician Prescribed Exercise Modalities: Treadmill, SciFit Stepper and SciFit Pro-II Ergometer Frequency: 3x/week for 12 weeks [36 sessions] Intensity: 60-80% of age predicted maximum heart rate reserve Duration: 30 - 45 minutes Current METSs:: 4.1 Target Heart Rate:: 86-108 Current RPE:: 10-12 Maximum Excercise HR:: 108 Resting Blood Pressure: 142/70 Maximum Exercise Blood Pressure: 132/60 EKG Type: NSR to ST with rare pac, pvc Outcomes & Goals Goals:: Verbalizes understanding of THR, RPE & goal METS by session 6, Documents in home exercise log/reports 30 min aerobic 5 day/wk by DC, Demonstrates accurate pulse taking by DC and Other additional outcome/goals: see below Intervention & Plan Exercise Program Goals: Instruct on personal THR & RPE, Instruct on MET level & personal MET goal, Show patient to take own pulse /validate performance until accurate, Instruct on home exercise and Other additional plan/int Physical Activity Home Exercise Physical Activity - Home Exercise: Safe Exercise, Warm-up, Self-monitoring, Cool-Down, Home Exercise > 30 min Daily and Sitting Time <3 hours/daily Outcomes & Goals Outcomes/Goals: Demonstrates correct Warm-up/exercise Cool-Down (S3) if = 2.5 METs, Verbalizes symptoms of exercise intolerance by Session 3 (S3), Demonstrate safe equipment use (S3) & follows exercise prescrition (6) and Other: See below Intervention & Plan Plan/Intervention: Instruct warm-up & cool-down if exercising at > 2 METs, Instruct on symptoms of exercise intolerance & actions to take, Instruct & monitor on saf, Assess intial functional capacity & safety risk and Other See below 30-day Reassessments 30 day Reassessments:: Progressing Reassessment Notes & Comments:: RPE explained to pt. Pt demonstrates understanding in her daily sessions. Exercise - 60-day Assessment Physician Prescribed Exercise Modalities: Treadmill, SciFit Stepper and SciFit Pro-II Ergometer Exercise - 90-day Assessment Physician Prescribed Exercise Modalities: Treadmill, SciFit Stepper and SciFit Pro-II Ergometer Exercise - Final/Discharge Physician Prescribed Exercise Modalities: Treadmill, SciFit Stepper and SciFit Pro-II Ergometer Nutrition - 30-Day Assessment Program Goals Nutrition Program Goals Patient has diagnosis of Hyperlipidemia (ICD E78)?: No Visit Date of Eval: 06/27/24 Session #:: 12 Cholesterol/Lipids (Other Core Measures) Determine presence & major risk factors that modify LDL goal: Hypertension or hypertensive medication, Low HDL cholesterol <40 mg/dL*, Family history of premature CHD in Male < 55 years: female <65 yearsFa and Age men > 45 years; women >/= 55 years Outcomes/Goals: Pt IDs own risk factors & lifestyle modifications by Session 10, Verbalizes symptoms of angina & response by session 3., Pt independently manages and Other Additional Outcomes/Goals: Intervention/Plan: Advocate for lipid panel cholesterol medication if applicable, Instruct on personal lipid levels & lipid goals/NCEP guidelines, Instruct on cholesterol and Other additional plan/int Diabetes (Other Core Measures) Diabetes Type: Not Applicable Weight Mgt (Other Care) Height: 5 ft 3 in Weight:: 129 lb 8 oz BMI: 22.9 Diagnosis Overweight/Obesity BMI> 30% ICD-10 E66: No Diagnosis High BMI/Morbid Obesity BMI> 35% ICD-10 Z68: No Outcomes/Goals: Pt sets, maintains & shows weight loss goal & trend during rehab and Other additional outcomes/goals Intervention/Plan: Instruct on ideal BMI & set weight loss goal w/patient, Assist pt to ID & incorporate diet changes for weight loss by S9, Refer to Structured Weight Loss program as appropriate, Encourage goal of using 250-300dcal per session for weight loss and Other additional plan/interventions Healthy Eating Habits Will attend diet classes:: Yes Outcomes/Goals:: Consume diet rich in vegs,fruits,whole grain/high fiber,fish,lean meat, Limit sat/trans fats,cholesterol & added salts & sugars and Other additional outcome/goals: Intervention/Plan:: Assess current eating habits and Other Additional plan/interventions 30-day Reassessments:: Progressing Reassessment Notes & Comments:: Pt is scheduled to attend nutrition class. Heart healthy low sodium diet encouraged. Will encourage pt to keep a food log. Education Gave educational materials for:: Signs & symptoms of hypoglycemia, Signs & symptoms of hyperglycemia, Relate diabetes to coronary artery disease and Healthy eating Nutrition - 60-Day Assessment Weight Mgt (Other Care) Height: 5 ft 3 in Weight:: 129 lb 8 oz BMI: 22.9 Core - 30-Day Assessment Visit Date of Eval: 06/27/24 Session #:: 12 Medication Compliance Preventative Medication(s):: Aspirin and Warfarin/Coumadin H/O mental health issues: depression, anxiety, or addiction?: No Doesn?t believe in the benefits of treatment?: No Believes medications are unnecessary or harmful?: No Has a concern about medication side effects?: No Expresses concern over the cost of medications?: No Outcomes/Goals: Verbalizes medications,desired effect & common side effects @ DC, Pt self-reports following medication regimen, Keeps card in wallet w/medications listed by DC and Other additional outcome/goals: Interventions/plans: Instruct on medication effects & side effects, Review medication list w/patient every two weeks, Instruct importance of taking meds as ordered & assist problem solving and Other additional Tobacco Use Tobacco Use: Non-smoker Hypertension Hypertension Diagnosis:: Hypertension ICD-10 I10 Resting Blood Pressure:: 142/70 [place] [employer] Hypertension Guidelines Peak Exercise Blood Pressure:: 148/62 Outcomes/Goals: Able to verbalize/achieve optimal blood pressure <130/80, Incorporates diet changes & exercise for blood pressure control by DC and Other additional outcomes/goals Interventions/plan: Instruct on optimal blood pressure, hypertension & medications, Instruct on effects of sodium, alcohol, stress, exercise &hypertension and Other additional plan/interventions 30 day Reassessments:: Progressing Reassessment Notes & Comments:: Pt's BP's are elevated. Will encourage a low sodium diet. Will continue to monitor and report to the pt's physician if necessary. Tobacco Cessation Referral Smoking Cessation Referral:: No Individual Education/Counseling:: No Education Schedule Given:: Yes Psychosocial - 30-Day Assess VIsit Date of Eval: 06/27/24 Session #:: 12 History of previous Mental disease:: No Target Goals Target Goals Psychosocial Test Tool Used:: [email or web address] QOL Cardiac and PHQ-9 Questionnaire phq-9 Severity See PHQ-9 Score: 1 Referral to Behavioral Health PS - Interventions: Yes: Attend Stress Management Classes Outcomes/Goals: See list Psychosocial Outcomes/Goals:: ID's personal stressors & 2 strategies to manage stress by discharge and Other Additional outcome/goals: Intervention/Plan: See List Interventions/Plan:: Assess stressors,coping strategies & signs of derpression on admission, Instruct/assist pt to develop coping & personal stress Mgt strategies, Refer to Behavioral Health if appropriate, Refer to Physician if appropriate, Instruct patient to recognize signs & symptoms of depression, Instruct patient to recog and Other additional plan/intervention 30-day Reassessments: 30 day Reassessments:: Progressing Reassessment Notes & Comments:: Pt is to attend stress management class. Pt denies any psychosocial issues at this time. Psychosocial - 60-Day Assess Target Goals Target Goals Referral to Behavioral Health PS - Interventions: Yes: Attend Stress Management Classes Outcomes/Goals: See list Psychosocial Outcomes/Goals:: ID's personal stressors & 2 strategies to manage stress by discharge and Other Additional outcome/goals: Psychosocial - 90-Day Assess Target Goals Target Goals Referral to Behavioral Health PS - Interventions: Yes: Attend Stress Management Classes Psychosocial - Final Assessmen Target Goals Target Goals Referral to Behavioral Health PS - Interventions: Yes: Attend Stress Management Classes Nutrition - 90-Day Assessment Weight Mgt (Other Care) Height: 5 ft 3 in Weight:: 129 lb 8 oz BMI: 22.9 Nutrition - Final Assessment Weight Mgt (Other Care) Height: 5 ft 3 in Weight:: 129 lb 8 oz BMI: 22.9
[2024-06-27 08:19] VITALS: BP 142/70; BMI 22.9
== END 2024-07-19 23:59 ==
LOC: CR 09:15
PROVIDERS: PCP Internal Medicine
DX: I35.0 Nonrheumatic aortic (valve) stenosis (principal); Z95.2 Presence of prosthetic heart valve
CPT/HCPCS: 93798

== ENCOUNTER 2024-08-18 09:15 | Outpatient (RCR) | payer MEDICARE, SELFPAY ==
[2024-06-27 08:19] VITALS: BMI 22.9
[2024-07-20 00:20] VITALS: BP 142/70
--- NOTE | 2024-07-24 10:11 | CR.ITP_ITS ---
Exercise - Initial Assessment Physician Prescribed Exercise Modalities: Treadmill, SciFit Stepper and SciFit Pro-II Ergometer Nutrition - Initial Assessment Weight Mgt (Other Care) Height: 5 ft 3 in Weight:: 133 lb BMI: 23.6 Core - Initial Assessment Hypertension Resting Blood Pressure:: 132/70 [place] [employer] Hypertension Guidelines Psychosocial - Initial Assess Target Goals Target Goals Referral to Behavioral Health PS - Interventions: Yes: Attend Stress Management Classes Patient Health Questionnaire PHQ-9 Screening 60-Day Re-eval Assessment: 1. Little interest or pleasure in doing things: Not at all 2. Feeling down, depressed, or hopeless: Not at all 3. Trouble falling or staying asleep, or sleeping too much: Several days 4. Feeling tired or having little energy: Not at all 5. Poor appetite or overeating: Not at all 6. Feeling bad about yourself -- or that you are a failure or have let yourself or your family down: Not at all 7. Trouble concentrating on things, such as reading the newspaper or watching television: Not at all 8. Moving or speaking so slowly that other people could have noticed. Or the opposite - being so fidgety or restless that you have been moving around a lot more than usual: Not at all 9. Thoughts that you would be better off , or of hurting yourself in some way: Not at all How difficult have these problems made it for you to do your work, take care of things at home, or get along with other people?: Not difficult at all Total Score: 1 Self-Efficacy 6-Item Scale 60-Day Re-eval Assessment: We would like to know how confident you are in doing certain activities. Please select your confidence level for: Fatigue Select Number: 5 Physical Discomfort or Pain Select Number: 10 Emotional Distress Select Number: 10 Other Symptoms or Health Problems Select Number: 5 Different Tasks and Activities Select Number: 10 Medication Select Number: 8 Total Score:: 8 Nutrition Survey Nutrition Survey Instructions Scoring Instructions Exercise - 30-day Assessment Physician Prescribed Exercise Modalities: Treadmill, SciFit Stepper and SciFit Pro-II Ergometer Exercise - 60-day Assessment Visit Date of Eval: 07/24/24 Session #:: 22 Physician Prescribed Exercise Modalities: Treadmill, SciFit Stepper and SciFit Pro-II Ergometer Frequency: 3x/week for 12 weeks [36 sessions] Intensity: 60-80% of age predicted maximum heart rate reserve Duration: 30 - 45 minutes Current METSs:: 6.3 Target Heart Rate:: 86-108 Current RPE:: 10-12 Maximum Excercise HR:: 107 Resting Blood Pressure: 108/70 Maximum Exercise Blood Pressure: 132/70 EKG Type: NSR to ST w/ 1DAVB BBB and rare PAC, PVC Current Physical Activity or Exercising minutes: 30-45 Outcomes & Goals Goals:: Verbalizes understanding of THR, RPE & goal METS by session 6, Documents in home exercise log/reports 30 min aerobic 5 day/wk by DC, Demonstrates accurate pulse taking by DC and Other additional outcome/goals: see below Intervention & Plan Exercise Program Goals: Instruct on personal THR & RPE, Instruct on MET level & personal MET goal, Show patient to take own pulse /validate performance until accurate, Instruct on home exercise and Other additional plan/int Physical Activity Home Exercise Physical Activity - Home Exercise: Safe Exercise, Warm-up, Self-monitoring, Cool-Down, Home Exercise > 30 min Daily and Sitting Time <3 hours/daily Outcomes & Goals Outcomes/Goals: Demonstrates correct Warm-up/exercise Cool-Down (S3) if = 2.5 METs, Verbalizes symptoms of exercise intolerance by Session 3 (S3), Demonstrate safe equipment use (S3) & follows exercise prescrition (6) and Other: See below Intervention & Plan Plan/Intervention: Instruct warm-up & cool-down if exercising at > 2 METs, Instruct on symptoms of exercise intolerance & actions to take, Instruct & monitor on saf, Assess intial functional capacity & safety risk and Other See below 30-day Reassessments 30 day Reassessments:: Progressing Reassessment Notes & Comments:: Proper warm up and cool down demonstrated and explained to pt. Pt is able to return demonstration. Exercise - 90-day Assessment Physician Prescribed Exercise Modalities: Treadmill, SciFit Stepper and SciFit Pro-II Ergometer Exercise - Final/Discharge Physician Prescribed Exercise Modalities: Treadmill, SciFit Stepper and SciFit Pro-II Ergometer Nutrition - 30-Day Assessment Weight Mgt (Other Care) Height: 5 ft 3 in Weight:: 133 lb BMI: 23.6 Nutrition - 60-Day Assessment Program Goals Nutrition Program Goals Patient has diagnosis of Hyperlipidemia (ICD E78)?: No Visit Date of Eval: 07/24/24 Session #:: 22 Cholesterol/Lipids (Other Core Measures) Determine presence & major risk factors that modify LDL goal: Hypertension or hypertensive medication, Low HDL cholesterol <40 mg/dL*, Family history of premature CHD in Male < 55 years: female <65 yearsFa and Age men > 45 years; wom en >/= 55 years Outcomes/Goals: Pt IDs own risk factors & lifestyle modifications by Session 10, Verbalizes symptoms of angina & response by session 3., Pt independently manages and Other Additional Outcomes/Goals: Intervention/Plan: Advocate for lipid panel cholesterol medication if applicable, Instruct on personal lipid levels & lipid goals/NCEP guidelines, Instruct on cholesterol and Other additional plan/int Diabetes (Other Core Measures) Diabetes Type: Not Applicable Weight Mgt (Other Care) Height: 5 ft 3 in Weight:: 133 lb BMI: 23.6 Diagnosis Overweight/Obesity BMI> 30% ICD-10 E66: No Diagnosis High BMI/Morbid Obesity BMI> 35% ICD-10 Z68: No Outcomes/Goals: Pt sets, maintains & shows weight loss goal & trend during rehab and Other additional outcomes/goals Intervention/Plan: Instruct on ideal BMI & set weight loss goal w/patient, Assist pt to ID & incorporate diet changes for weight loss by S9, Refer to Structured Weight Loss program as appropriate, Encourage goal of using 250- 300dcal per session for weight loss and Other additional plan/interventions 30 day Reassessments:: Met Reassessment Notes & Comments:: Pt is at a healthy weight and has attended nutrition classes Healthy Eating Habits Will attend diet classes:: Yes Outcomes/Goals:: Consume diet rich in vegs,fruits,whole grain/high fiber,fish,lean meat, Limit sat/trans fats,cholesterol & added salts & sugars and Other additional outcome/goals: Intervention/Plan:: Assess current eating habits and Other Additional plan/interventions 30-day Reassessments:: Met Reassessment Notes & Comments:: /Pt has attended multiple nutrition classes. We continue to encourage a heart healthy low sodium diet and weight pt weekly. Education Gave educational materials for:: Signs & symptoms of hypoglycemia, Signs & symptoms of hyperglycemia, Relate diabetes to coronary artery disease and Health y eating Core - Final Assessment Hypertension Resting Blood Pressure:: 132/70 [place] [employer] Hypertension Guidelines Core - 60-Day Assessment Visit Date of Eval: 07/24/24 Medication Compliance Preventative Medication(s):: Aspirin and Warfarin/Coumadin H/O mental health issues: depression, anxiety, or addiction?: No Doesn?t believe in the benefits of treatment?: No Believes medications are unnecessary or harmful?: No Has a concern about medication side effects?: No Expresses concern over the cost of medications?: No Outcomes/Goals: Verbalizes medications,desired effect & common side effects @ DC, Pt self-reports following medication regimen, Keeps card in wallet w/medications listed by DC and Other additional outcome/goals: Interventions/plans: Instruct on medication effects & side effects, Review medication list w/patient every two weeks, Instruct importance of taking meds as ordered & assist problem solving and Other additional Tobacco Use Tobacco Use: Non-smoker 30-day Reassessments:: Met Reassessment Notes & Comments:: nonsmoker Hypertension Hypertension Diagnosis:: Hypertension ICD-10 I10 Resting Blood Pressure:: 108/70 Resting Blood Pressure:: 132/70 [place] [employer] Hypertension Guidelines Peak Exercise Blood Pressure:: 122/70 Outcomes/Goals: Able to verbalize/achieve optimal blood pressure <130/80, Incorporates diet changes & exercise for blood pressure control by DC and Other additional outcomes/goals Interventions/plan: Instruct on optimal blood pressure, hypertension & medications, Instruct on effects of sodium, alcohol, stress, exercise &hypertension and Other additional plan/interventions 30 day Reassessments:: Progressing Reassessment Notes & Comments:: BP's have improved slightly. Will continue to monitor and report to physician if necessary. Tobacco Cessation Referral Smoking Cessation Referral:: No Individual Education/Counseling:: No Education Schedule Given:: Yes Psychosocial - 30-Day Assess Target Goals Target Goals Referral to Behavioral Health PS - Interventions: Yes: Attend Stress Management Classes Outcomes/Goals: See list Psychosocial Outcomes/Goals:: ID's personal stressors & 2 strategies to manage stress by discharge and Other Additional outcome/goals: Psychosocial - 60-Day Assess VIsit Date of Eval: 07/24/24 Session #:: 22 History of previous Mental disease:: No Target Goals Target Goals Psychosocial Test Tool Used:: PHQ-9 Questionnaire phq-9 Severity See PHQ-9 Score: 1 Referral to Behavioral Health PS - Interventions: Yes: Attend Stress Management Classes Outcomes/Goals: See list Psychosocial Outcomes/Goals:: ID's personal stressors & 2 strategies to manage stress by discharge and Other Additional outcome/goals: Intervention/Plan: See List Interventions/Plan:: Assess stressors,coping strategies & signs of derpression on admission, Instruct/assist pt to develop coping & personal stress Mgt strategies, Refer to Behavioral Health if appropriate, Refer to Physician if appropriate, Instruct patient to recognize signs & symptoms of depression, Instruct patient to recog and Other additional plan/intervention 30-day Reassessments: 30 day Reassessments:: Met Reassessment Notes & Comments:: Pt denies any psychosocial issues at this time. Psychosocial - 90-Day Assess Target Goals Target Goals Referral to Behavioral Health PS - Interventions: Yes: Attend Stress Management Classes Psychosocial - Final Assessmen Target Goals Target Goals Referral to Behavioral Health PS - Interventions: Yes: Attend Stress Management Classes Nutrition - 90-Day Assessment Weight Mgt (Other Care) Height: 5 ft 3 in Weight:: 133 lb BMI: 23.6 Nutrition - Final Assessment Weight Mgt (Other Care) Height: 5 ft 3 in Weight:: 133 lb BMI: 23.6
[2024-07-24 10:16] VITALS: BP 108/70
[2024-07-24 10:25] VITALS: BMI 23.6
[2024-07-24 10:39] VITALS: BP 108/70; BP 132/70
== END 2024-08-18 23:59 ==
LOC: CR 09:15
PROVIDERS: PCP Internal Medicine
DX: Z95.2 Presence of prosthetic heart valve (principal); I35.0 Nonrheumatic aortic (valve) stenosis
CPT/HCPCS: 93798

== ENCOUNTER 2024-08-20 07:17 | Outpatient (RCR) | payer MEDICARE, SELFPAY ==
[2024-07-24 10:25] VITALS: BMI 23.6
--- NOTE | 2024-08-21 10:57 | CR.ITP_ITS ---
Exercise - Initial Assessment Physician Prescribed Exercise Modalities: Treadmill, SciFit Stepper and SciFit Pro-II Ergometer Nutrition - Initial Assessment Weight Mgt (Other Care) Height: 5 ft 3 in Weight:: 131 lb 8 oz BMI: 23.3 Psychosocial - Initial Assess Target Goals Target Goals Referral to Behavioral Health PS - Interventions: Yes: Attend Stress Management Classes Patient Health Questionnaire PHQ-9 Screening 90-Day Re-eval Assessment: 1. Little interest or pleasure in doing things: Not at all 2. Feeling down, depressed, or hopeless: Not at all 3. Trouble falling or staying asleep, or sleeping too much: Several days 4. Feeling tired or having little energy: Not at all 5. Poor appetite or overeating: Not at all 6. Feeling bad about yourself -- or that you are a failure or have let yourself or your family down: Not at all 7. Trouble concentrating on things, such as reading the newspaper or watching television: Not at all 8. Moving or speaking so slowly that other people could have noticed. Or the opposite - being so fidgety or restless that you have been moving around a lot more than usual: Not at all 9. Thoughts that you would be better off , or of hurting yourself in some way: Not at all How difficult have these problems made it for you to do your work, take care of things at home, or get along with other people?: Not difficult at all Total Score: 1 Self-Efficacy 6-Item Scale 90-Day Re-eval Assessment: We would like to know how confident you are in doing certain activities. Please select your confidence level for: Fatigue Select Number: 5 Physical Discomfort or Pain Select Number: 10 Emotional Distress Select Number: 10 Other Symptoms or Health Problems Select Number: 5 Different Tasks and Activities Select Number: 10 Medication Select Number: 8 Total Score:: 8 Nutrition Survey Nutrition Survey Instructions Scoring Instructions Exercise - 30-day Assessment Physician Prescribed Exercise Modalities: Treadmill, SciFit Stepper and SciFit Pro-II Ergometer Exercise - 60-day Assessment Physician Prescribed Exercise Modalities: Treadmill, SciFit Stepper and SciFit Pro-II Ergometer Exercise - 90-day Assessment Visit Date of Eval: 08/21/24 Session #:: 33 Physician Prescribed Exercise Modalities: Treadmill, SciFit Stepper and SciFit Pro-II Ergometer Frequency: 3x/week for 12 weeks [36 sessions] Intensity: 60-80% of age predicted maximum heart rate reserve Duration: 30 - 45 minutes Current METSs:: 8.2 Target Heart Rate:: 86-114 Maximum Excercise HR:: 129 Resting Blood Pressure: 122/64 Maximum Exercise Blood Pressure: 144/80 EKG Type: NSR to St with a rare PAC, PVC Outcomes & Goals Goals:: Verbalizes understanding of THR, RPE & goal METS by session 6, Documents in home exercise log/reports 30 min aerobic 5 day/wk by DC, Demonstrates accurate pulse taking by DC and Other additional outcome/goals: see below Intervention & Plan Exercise Program Goals: Instruct on personal THR & RPE, Instruct on MET level & personal MET goal, Show patient to take own pulse /validate performance until accurate, Instruct on home exercise and Other additional plan/int Physical Activity Home Exercise Physical Activity - Home Exercise: Safe Exercise, Warm-up, Self-monitoring, Cool-Down, Home Exercise > 30 min Daily and Sitting Time <3 hours/daily Outcomes & Goals Outcomes/Goals: Demonstrates correct Warm-up/exercise Cool-Down (S3) if = 2.5 METs, Verbalizes symptoms of exercise intolerance by Session 3 (S3), Demonstrate safe equipment use (S3) & follows exercise prescrition (6) and Other: See below Intervention & Plan Plan/Intervention: Instruct warm-up & cool-down if exercising at > 2 METs, Instruct on symptoms of exercise intolerance & actions to take, Instruct & monitor on saf, Assess intial functional capacity & safety risk and Other See below 30-day Reassessments 30 day Reassessments:: Met Reassessment Notes & Comments:: Pt has 3 sessions remaining. Pt is working at 8.2 METS. Upon graduation pt will be given her exercise prescription as well as community resources to continue his exercise. Exercise - Final/Discharge Physician Prescribed Exercise Modalities: Treadmill, SciFit Stepper and SciFit Pro-II Ergometer Nutrition - 30-Day Assessment Weight Mgt (Other Care) Height: 5 ft 3 in Weight:: 131 lb 8 oz BMI: 23.3 Nutrition - 60-Day Assessment Weight Mgt (Other Care) Height: 5 ft 3 in Weight:: 131 lb 8 oz BMI: 23.3 Core - 30-Day Assessment Hypertension [place] [employer] Hypertension Guidelines Reassessment Notes & Comments:: Pt's BP's are within AHA normal limits on some days Core - Final Assessment Hypertension [place] [employer] Hypertension Guidelines Reassessment Notes & Comments:: Pt's BP's are within AHA normal limits on some days Core - 90 Day Assessment Visit Date of Eval: 08/21/24 Session #:: 33 Medication Compliance Preventative Medication(s):: Aspirin and Warfarin/Coumadin H/O mental health issues: depression, anxiety, or addiction?: No Doesn?t believe in the benefits of treatment?: No Believes medications are unnecessary or harmful?: No Has a concern about medication side effects?: No Expresses concern over the cost of medications?: No Outcomes/Goals: Verbalizes medications,desired effect & common side effects @ DC, Pt self-reports following medication regimen, Keeps card in wallet w/medications listed by DC and Other additional outcome/goals: Interventions/plans: Instruct on medication effects & side effects, Review medication list w/patient every two weeks, Instruct importance of taking meds as ordered & assist problem solving and Other additional Tobacco Use Tobacco Use: Non-smoker Hypertension Hypertension Diagnosis:: Hypertension ICD-10 I10 Resting Blood Pressure:: 122/64 [place] [employer] Hypertension Guidelines Peak Exercise Blood Pressure:: 144/80 Outcomes/Goals: Able to verbalize/achieve optimal blood pressure <130/80, Incorporates diet changes & exercise for blood pressure control by DC and Other additional outcomes/goals Interventions/plan: Instruct on optimal blood pressure, hypertension & medications, Instruct on effects of sodium, alcohol, stress, exercise &hypertension and Other additional plan/interventions Reassessment Notes & Comments:: Pt's BP's are within AHA normal limits on some days Tobacco Cessation Referral Smoking Cessation Referral:: No Individual Education/Counseling:: No Education Schedule Given:: Yes Psychosocial - 30-Day Assess Target Goals Target Goals Referral to Behavioral Health PS - Interventions: Yes: Attend Stress Management Classes Psychosocial - 60-Day Assess Target Goals Target Goals Referral to Behavioral Health PS - Interventions: Yes: Attend Stress Management Classes Psychosocial - 90-Day Assess VIsit Date of Eval: 08/21/24 Session #:: 33 History of previous Mental disease:: No Target Goals Target Goals Psychosocial Test Tool Used:: PHQ-9 Questionnaire phq-9 Severity See PHQ-9 Score: 1 Referral to Behavioral Health PS - Interventions: Yes: Attend Stress Management Classes Outcomes/Goals: See list Psychosocial Outcomes/Goals:: ID's personal stressors & 2 strategies to manage stress by discharge and Other Additional outcome/goals: Intervention/Plan: See List Interventions/Plan:: Assess stressors,coping strategies & signs of derpression on admission, Instruct/assist pt to develop coping & personal stress Mgt strategies, Refer to Behavioral Health if appropriate, Refer to Physician if appropriate, Instruct patient to recognize signs & symptoms of depression, Instruct patient to recog and Other additional plan/intervention 30-day Reassessments: 30 day Reassessments:: Met Reassessment Notes & Comments:: Pt denies any psychosocial issues at this time. Psychosocial - Final Assessmen Target Goals Target Goals Referral to Behavioral Health PS - Interventions: Yes: Attend Stress Management Classes Nutrition - 90-Day Assessment Program Goals Nutrition Program Goals Patient has diagnosis of Hyperlipidemia (ICD E78)?: No Visit Date of Eval: 08/21/24 Session #:: 33 Cholesterol/Lipids (Other Core Measures) Determine presence & major risk factors that modify LDL goal: Hypertension or hypertensive medication, Low HDL cholesterol <40 mg/dL*, Family history of premature CHD in Male < 55 years: female <65 yearsFa and Age men > 45 years; women >/= 55 years Outcomes/Goals: Pt IDs own risk factors & lifestyle modifications by Session 10, Verbalizes symptoms of angina & response by session 3., Pt independently manages and Other Additional Outcomes/Goals: Intervention/Plan: Advocate for lipid panel cholesterol medication if applicable, Instruct on personal lipid levels & lipid goals/NCEP guidelines, Instruct on cholesterol and Other additional plan/int Diabetes (Other Core Measures) Diabetes Type: Not Applicable Weight Mgt (Other Care) Height: 5 ft 3 in Weight:: 131 lb 8 oz BMI: 23.3 Diagnosis Overweight/Obesity BMI> 30% ICD-10 E66: No Diagnosis High BMI/Morbid Obesity BMI> 35% ICD-10 Z68: No Outcomes/Goals: Pt sets, maintains & shows weight loss goal & trend during rehab and Other additional outcomes/goals Intervention/Plan: Instruct on ideal BMI & set weight loss goal w/patient, Assist pt to ID & incorporate diet changes for weight loss by S9, Refer to Structured Weight Loss program as appropriate, Encourage goal of using 250- 300dcal per session for weight loss and Other additional plan/interventions Healthy Eating Habits Will attend diet classes:: Yes Outcomes/Goals:: Consume diet rich in vegs,fruits,whole grain/high fiber,fish,lean meat, Limit sat/trans fats,cholesterol & added salts & sugars and Other additional outcome/goals: Intervention/Plan:: Assess current eating habits and Other Additional plan/interventions 30-day Reassessments:: Met Reassessment Notes & Comments:: Pt has attended nutrition class. Pt is at healthy weight. Education Gave educational materials for:: Signs & symptoms of hypoglycemia, Signs & symptoms of hyperglycemia, Relate diabetes to coronary artery disease and Healthy eating Nutrition - Final Assessment Weight Mgt (Other Care) Height: 5 ft 3 in Weight:: 131 lb 8 oz BMI: 23.3
[2024-08-21 11:02] VITALS: BP 122/64
[2024-08-21 11:14] VITALS: BP 122/64; BMI 23.3
== END 2024-09-18 23:59 ==
LOC: CR 07:17
PROVIDERS: PCP Internal Medicine
DX: I35.0 Nonrheumatic aortic (valve) stenosis (principal); Z95.2 Presence of prosthetic heart valve
CPT/HCPCS: 93798

== ENCOUNTER 2024-08-23 07:17 | Observation (INO) | payer MEDICARE, SELFPAY ==
[2024-08-23] VITALS (7 sets, daily range): BP systolic 113–148; BP diastolic 62–82; PULSE 61–90; RESP 16–18; TEMP 36.6–37; O2SAT 98–100; BMI 24.5; BMI 22.8
--- NOTE | 2024-08-23 07:31 | RAD_ITS ---
EXAM: XR Left Wrist Complete, 3 or More Views CLINICAL INDICATION: INJURY TECHNIQUE: Frontal, lateral and oblique views of the left wrist. COMPARISON: No relevant prior studies available. FINDINGS: BONES/JOINTS: Comminuted impacted fracture of the distal radius with intra- articular extension. No dislocation. SOFT TISSUES: Soft tissue swelling. No radiopaque foreign body. RAD/Wrist min 3 Views IMPRESSION: Comminuted impacted fracture of the distal radius with intra-articular extensio n. Reading Location: [id number]
--- NOTE | 2024-08-23 07:32 | ED.VIS.FALL ---
HPI HPI - Fall History of Present Illness Chief Complaint: Fall Informant: patient and EMS Narrative Narrative: 79-year-old female presents to the ER by EMS after a fall. She arrives a little after 7 AM, she states the fall occurred at around 1:30 AM. She was not able to get up because of the chronic arthritis in both of her knees, not because of the lower extremity injury. She injured her left wrist as she used her left upper extremity to try to catch herself when she was falling, and injured her left face mildly. She denies having a headache. She is on warfarin. She states she got up out of bed to go brush her teeth, and she is not sure why she fell, but she denies any prodromal symptoms such as lightheadedness, dyspnea, chest discomfort, and denies any loss of consciousness at any point in time or syncope. [id number]. Lives by herself. She states the arthritis in her knees is so bad that she needs special chairs everywhere she goes in order to get out of them, or an physician assistant surgery. She states this morning she laid there for most of the morning except for when she scooted herself around with her right arm and legs to get to telephone and to get to the front door and unlock the door for the EMS personnel. She states typically she would have difficulty getting up off of the floor but would be able to if her wrist was not injured [facility] Medical History Hypertension GERD (gastroesophageal reflux disease) Pericardial effusion CHF (congestive heart failure) Wears glasses Walker as ambulation aid Ambulates with cane Arthritis Excessive bleeding Easy bruising History of ulceration History of GI bleed Gastric reflux Emphysema, unspecified Cardiology follow-up encounter History of edema Severe aortic stenosis ABLA (acute blood loss anemia) Thrombocytopenia Adult failure to thrive Leg edema Rheumatoid arthritis COPD (chronic obstructive pulmonary disease) Former smoker DVT (deep venous thrombosis) Pulmonary embolism Colitis COVID-19 Histoplasmosis Home Medications Medication Instructions Recorded Last Taken Type multivitamin (Daily Multi-Vitamin 1 tab PO DAILY supplement 03/19/23 10/01/23 History tablet) vitamins A,C,E-wsjn-kiezav 2,148 2 tab PO BID eye health 03/19/23 10/01/23 History mcg-113 mg-45 mg-17.4 mg tablet (PreserVision AREDS) gabapentin 300 mg capsule 300 mg PO Q12 nerve pain #0 caps 04/05/23 10/01/23 Rx potassium chloride 20 mEq 20 meq PO BIDCM #0 tabs 04/27/23 10/01/23 Rx tablet,extended release(part/cryst) fluticasone propionate 50 1 spray intranasal DAILY 08/13/23 10/02/23 History mcg/actuation nasal spray,suspension furosemide 20 mg tablet 20 mg PO DAILY PRN edema 08/13/23 10/01/23 History tiotropium bromide 2.5 2 puff inhalation DAILY 08/13/23 10/02/23 History mcg/actuation mist for inhalation (Spiriva Respimat) diclofenac sodium 1 % topical gel 4 g topical BID PRN PRN knee pain 08/18/23 10/02/23 Rx (Voltaren Arthritis Pain) #100 grams warfarin 5 mg tablet See Rx Instructions .Route 08/18/23 09/27/23 Rx Held on 10/01/23. .COMPLEX #30 tabs Instructions: ON HOLD FOR COLONOSCOPY omega 9-lsa-oze-fish oil 1,200 mg 1 cap PO DAILY 10/01/23 Unknown History (144 mg-216 mg) capsule (Fish Oil) albuterol sulfate 90 mcg/actuation 2 puff inhalation Q4H PRN PRN 06/13/24 Unknown History aerosol inhaler cholecalciferol (vitamin D3) 25 25 mcg PO QDAY 06/13/24 Unknown History mcg (1,000 unit) capsule fluticasone 250 mcg-salmeterol 50 1 inh inhalation BID 06/13/24 Unknown History mcg/dose blistr powdr for inhalation (Wixela Inhub) folic acid 0.8 mg capsule 0.8 mg PO QDAY 06/13/24 Unknown History methotrexate sodium 2.5 mg tablet 10 mg PO QWEEK 06/13/24 Unknown History spironolactone 25 mg tablet 25 mg PO DAILY 06/13/24 Unknown History sulfasalazine 500 mg 1 g PO BID 06/13/24 Unknown History tablet,delayed release acetaminophen 500 mg tablet 1,000 mg PO TID Pain Score 1-10 06/20/24 Unknown History clindamycin HCl 300 mg capsule 600 mg (2 x 300 mg) PO ONCE #2 caps 06/20/24 Unknown Rx ferrous sulfate 325 mg (65 mg 325 mg PO QDAY 06/20/24 Unknown History iron) tablet metoprolol succinate 25 mg 25 mg PO QDAY #30 tabs 07/18/24 Unknown Rx tablet,extended release 24 hr Allergy/AdvReac Type Severity Reaction Status Date / Time Penicillins Allergy Severe Anaphylaxis Verified 06/20/24 10:10 Surgical History History of transcatheter aortic valve replacement (TAVR) History of back surgery History of esophagogastroduodenoscopy (EGD) History of tonsillectomy History of embolic filter insertion Hx of foot surgery Social History household members: none Smoking Status: Former smoker alcohol intake: never substance use type: does not use ROS ROS ED Constitutional Constitutional ED: Denies chills or fever(s) Eyes Eyes: Denies blurry vision, change in vision or diplopia ENT ENT ED: Reports facial pain; Denies ear pain, epistaxis or rhinorrhea Cardiovascular Cardiovascular: Denies chest pain or palpitations Respiratory/Chest Respiratory/Chest: Denies cough or dyspnea Gastrointestinal Gastrointestinal: Denies abdominal pain, diarrhea, melena, nausea or vomiting Genitourinary Genitourinary ED: Denies dysuria or hematuria Musculoskeletal Musculoskeletal: Reports arthralgias and extremity pain; Denies back pain or neck pain Integumentary Reports Abrasions; Denies abscess, laceration or rash Neurologic Neurologic: Denies confusion, headache(s), paresthesias or weakness EXAM Physical Exam Const Vital Signs: 08/23/24 07:18 08/23/24 07:31 08/23/24 09:18 Temperature 98.6 F Temperature Source Oral Pulse Rate 84 64 Respiratory Rate 18 18 Respiratory Effort Normal Respiratory Depth Normal Respiratory Pattern Normal Blood Pressure 113/63 134/76 H Blood Pressure Mean 79 95 Pulse Ox 98 98 Oxygen Delivery Method Room Air Room Air Room Air Positive well nourished and well developed General Appearance ED: well developed and NAD HEENT Reports TM's clear and nasal mucous membranes and turbinates normal HEENT Narrative: Abrasion left lateral superior orbital brim without laceration or crepitance, there is no facial bony tenderness. There is a slight amount of ecchymosis just beneath the left eye. There is no infraorbital hypoesthesia. There is no nasal tenderness or evidence of epistaxis. No Elias sign, no raccoon eyes, no CSF otorhinorrhea, no hemotympanum. trauma and contusion Face and Sinus: Negative for facial tenderness Tympanic Membrane ED: Yes TM's clear Eyes PERRL and EOMs intact bilaterally Eyes Narrative: No evidence of globe trauma or hyphema. Visual Acuity: other Other Details: no entrapment or pain with extraocular movements Neck full ROM and supple General: Negative for tenderness Chest Wall inspection of chest normal and palpation of chest normal Chest: symmetrical chest wall rise; Negative for crepitus or tenderness Resp normal respiratory effort and clear to auscultation bilaterally Percussion: other equal BS bilat Cardio no murmurs Rate: regular rate; Negative for tachycardic Rhythm: regular rhythm GI normal to inspection, nondistended, normoactive bowel sounds, soft to palpation and non-tender Back/Spine normal ROM Cervical Spine: Negative for cervical spine tenderness Thoracic Spine / Upper Back: Negative for thoracic spinal tenderness Lumbar Spine / Lower Back: Negative for lumbar spinal tenderness Extremity Extremity Narrative: Ecchymosis and mild swelling about the left wrist, there is no deformity, but very limited range of motion here due to pain. It is tender at the distal radius but not in the snuffbox, and the distal ulna is nontender but the base of the fifth metacarpal is. Full range of motion of all joints otherwise of all 4 extremities including the left elbow, although she has pain in the wrist with supination pronation which is limited. There is palpable and audible creaking when she bends her knees but she is able. General Extremety ED: Yes tenderness Neuro oriented x3, CN's II-XII intact bilaterally, moves all extremities, no focal motor deficits and no sensory deficits noted Velpen Coma Scale: document GCS findings Spontaneous Obeys Commands Oriented 15 Sensorium / Orientation: awake and alert Psych mental status grossly normal and thought process normal Skin no wounds Skin Narrative: Abrasion left face no other evidence of trauma to the skin. Lesions: no lesions Rashes: no rashes MDM MDM MDM Narrative Medical decision making narrative: I ordered a spot check PT/INR, but upon reviewing her past medical history and seeing history of thrombocytopenia and anemia, and although her fall sounds mechanical she is not exactly sure why she fell, so I thought it was more than reasonable to also obtain blood counts and chemistries. She states her last INR was a week or so ago and it was low so she is scheduled to have it rechecked in another week or 2 from now. It is 1.2 and the rest of her labs are unremarkable. Her head CT on my interpretation is negative for acute hemorrhage or injury radiology in agreement. 3 view left wrist x-ray on my interpretation shows a comminuted impacted distal radius fracture there is no intra-articular component. Radiology also in agreement. She was splinted see the procedure note. I offered admission and placement if she feels like she cannot function with this at home. She went to the bathroom and tried to go on her own after splinting, she had trouble and does not feel that she will be able to function on her own at home with regards to ADLs (she is able to ambulate), and agrees to be admitted for evaluation for possible placement/rehab. Discussed with orthopedics and hospitalist. Lab Data Attestation: I reviewed the patient's lab results. Labs: Laboratory Results - last 24 hr 08/23/24 07:45 WBC 7.9 RBC 3.52 L Hgb 11.3 L Hct 33.9 L MCV 96.3 MCH 32.1 H MCHC 33.3 RDW Std Deviation 58.6 H RDW Coeff of Catarino 17.0 H Plt Count 182 MPV 10.9 Immature Gran % (Auto) 0.500 Neut % (Auto) 82.3 H Lymph % (Auto) 8.1 L [place] % (Auto) 8.6 Eos % (Auto) 0.1 Baso % (Auto) 0.4 Absolute Neuts (auto) 6.5 Absolute Lymphs (auto) 0.64 L Nucleated RBC % 0 PT 15.5 H INR 1.2 Sodium 140 Potassium 3.9 Chloride 104 Carbon Dioxide 22.1 Anion Gap 14 BUN 22 H Creatinine 0.63 L Estim Creat Clear Calc 48.72 L Est GFR (MDRD) Non-Af 91 BUN/Creatinine Ratio 34.8 H Glucose 116 H Calcium 9.2 Total Creatine Kinase 128 Radiography Diagnostic Testing: Clinical Impression(s) from Imaging Studies Wrist X-Ray 08/23/24 07:31 IMPRESSION: Comminuted impacted fracture of the distal radius with intra-articular extension. Reading Location: [facility] Brain CT 08/23/24 08:06 IMPRESSION: 1. Generalized brain atrophy. 2. Small vessel ischemic/degenerative changes. 3. No acute intracranial hemorrhage, midline shift or mass effect. If symptoms persist, further evaluation with MRI is recommended. Reading Location: [facility] Management Discussion w/another healthcare provider: Hospitalist and Plant Electrician (ezekiel rinaldi) Procedures Upper Extremity Splints Upper Extremity Splint: Orthoglass (AP short arm, fabricated. Neurovascularly intact distally after placement) Splint Fabrication: Fabricated Location: Left Discharge Plan Dx/Rx/DC Orders Clinical Impression: Closed fracture of distal end of left radius, Closed head injury without concussion, Abrasion of face, Subtherapeutic international normalized ratio (INR), Fall from slip, trip, or stumble, Declining functional status Disposition Disposition: Acute Care Hospital [facility]
--- OUTSIDE RECORDS SUMMARY | 2024-08-23 07:45 | XMS RPT_ITS | CCD ---
Author Organization [facility] Care Team Providers Care Railroad Shop Inspector Name Role Phone Mykel Santamaria Unavailable Unavailable Mykel Santamaria Unavailable Unavailable UNKNOWN, REFERR Unavailable Unavailable Will Hurley Attending Unavailable PROVIDER, UNKNOWN Referring Unavailable No, PCP Primary Care Unavailable Claudine Durán MD Primary Care Provider Will Hurley Unavailable Gold Colón RN Unavailable UnavailClaudine Cannon MD Primary Care Provider Will Hurley Unavailable [phone] Gold Colón RN Unavailable Unavailabl Will Foote Unavailable Lulú Ramos RN Unavailable Katarzyna MITCHELL, Gold Coyne Unavailable UnavailClaudine Cannon MD Primary Care Provider Will Hurley Unavailable Rachel RN, Lulú Unavailable Rachel RN, Lulú Unavailable Paul RN, Ilda Unavailable Paul RN, Ilda Unavailable Rachel RN, Lulú Unavailable [phone] Lynne Maynard RN Unavailable Unavailable Dr. Claudine Durán Primary Care Provider Dr. Martín Cornejo Emergency Provider Dr. Laine Veras Admit Provider Dr. Laine Veras Other Provider Dr. Alisa Mathew Attending Provider Dr. Alisa Mathew Other Provider Dr. Jasmyn Chan Other Provider Esteban, Dr. Carmona Attending Provider Dr. Bob Tariq Attending Provider Dr. Emery Schofield Attending Provider Dr. Jasmyn Chan Attending Provider Dr. Naman Meredith Other Provider Dr. Lg Rios Other Provider Isela, Dr. Cano Other Provider Dr. Stevan Rodríguez Other Provider Dr. Jing Reyes Other Provider Dr. Efrain Quevedo Other Provider Dr. Frederick Dick Other Provider Dr. Geno Rush Other Provider Dr. Adarsh Prakash Other Provider Dr. Alcides Abel Attending Provider Dr. Alcides Abel Other Provider Dr. London Sandra Other Provider Dr. Chris Royal Other Provider Unavailable Dr. Leobardo Calloway Other Provider Dr. Jorgito Agarwal Other Provider Sharon SANITARY LANDFILL OPERATOR, SANITARY LANDFILL OPERATOR-C Rosalina Other Provider Dr. Jasmyn Chan Referring Provider Dr. Alisa Mathew Referring Provider Dr. Claudine Durán Referring Provider Dr. Claudine Durán Primary Care Provider Dr. Martín Cornejo Emergency Provider Dr. Laine Veras Admit Provider Dr. Laine Veras Other Provider Dr. Alisa Mathew Attending Provider Dr. Alisa Mathew Other Provider Dr. Jasmyn Chan Referring Provider Dr. Jasmyn Chan Other Provider Esteban, Dr. Carmona Attending Provider Dr. Bob Tariq Attending Provider Dr. Alisa Mathew Referring Provider Dr. Emery Schofield Attending Provider Dr. Jasmyn Chan Attending Provider Dr. Naman Meredith Other Provider Dr. Lg Rios Other Provider Dr. Rachael Weiss Other Provider Dr. Stevan Rodríguez Other Provider Dr. Jing Reyes Other Provider Dr. Efrain Quevedo Other Provider Dr. Frederick Dick Other Provider Dr. Claudine Durán Referring Provider Dr. Geno Rush Other Provider Dr. Adarsh Prakash Other Provider Dr. Alcides Abel Attending Provider Dr. Alcides Abel Other Provider Dr. London Sandra Other Provider Dr. Chris Royal Other Provider Unavailable Dr. Leboardo Calloway Other Provider Dr. Jorgito Agarwal Other Provider Sharon SANITARY LANDFILL OPERATOR, SANITARY LANDFILL OPERATOR-C Rosalina Other Provider Dr. Edinson Irvin Chi Referring Provider Dr. Claudine Durán Primary Care Provider Dr. Martní Cornejo Emergency Provider Dr. Laine Veras Admit Provider Dr. Laine Veras Other Provider Dr. Alisa Mathew Attending Provider Dr. Alisa Mathew Other Provider Dr. Jasmyn Chan Referring Provider Dr. Jasmyn Chan Other Provider Esteban, Dr. Carmona Attending Provider Dr. Bob Tariq Attending Provider Dr. Alisa Mathew Referring Provider Dr. Emery Schofield Attending Provider Dr. Jasmyn Chan Attending Provider Dr. Naman Meredith Other Provider Dr. Lg Rios Other Provider Dr. Rachael Weiss Other Provider Dr. Stevan Rodríguez Other Provider Dr. Jing Reyes Other Provider Dr. Efrain Quevedo Other Provider Dr. Frederick Dick Other Provider Dr. Claudine Durán Referring Provider Dr. Geno Rush Other Provider Dr. Adarsh Prakash Other Provider Dr. Alcides Abel Attending Provider Dr. Alcides Abel Other Provider Dr. London Sandra Other Provider Dr. Chris Royal Other Provider Unavailable Dr. Leobardo Calloway Other Provider Dr. Jorgito Agarwal Other Provider Sharon SANITARY LANDFILL OPERATOR, SANITARY LANDFILL OPERATOR-C Rosalina Other Provider Dr. Edinson Irvin Chi Referring Provider Claudine Durán MD Primary Care Provider Juarez SANITARY LANDFILL OPERATOR, SANITARY LANDFILL OPERATOR-C Fadia Attending Provider Dr. Zaynab Pina Attending Provider CLAUDINE DURÁN Primary Care Unavailable WILLIAM MESSINA Attending Unavailab david Ramos RN, Lulú Coyne Unavailable CLAUDINE DURÁN Primary Care Unavailable MICHAEL LUJAN Admitting Unavailable SHARAN RIVAS Attending Unavailable GENO CAMACHO Consulting Unavailable Swanson SUPERVISOR IRRIGATION.INDUSTRIAL CHEMISTRY TEACHER, Jimbo Unavailable Mason SUPERVISOR IRRIGATION.FINANCIAL ANALYSIS ADVISOR, Twyla Unavailable Bartolome Francis MD Unavailable Christophe MC, Juvencio Unavailable Eli RN, Pili Unavailable Unavailable Mason SUPERVISOR IRRIGATION.FINANCIAL ANALYSIS ADVISOR, Twyla Jannet Unavailable Mason SUPERVISOR IRRIGATION.FINANCIAL ANALYSIS ADVISOR, Twyla Unavailable Eli MITCHELL, Pili Unavailable Unavailable Mason SUPERVISOR IRRIGATION.FINANCIAL ANALYSIS ADVISOR, Twyla Unavailable Mason SUPERVISOR IRRIGATION.FINANCIAL ANALYSIS ADVISOR, Twyla Unavailable Dr. Claudine Durán MD Primary Care Provider JUVENCIO SAEED Attending Provider JUVENCIO SAEED Referring Provider Dr. Claudine Durán MD Referring Provider Dr. Diaz Puckett MD Attending Provider Swanson SUPERVISOR IRRIGATION.INDUSTRIAL CHEMISTRY TEACHER, Jimbo Unavailable CLAUDINE DURÁN Primary Care Unavailable CLAUDINE DURÁN Primary Care Unavailable BIBI ALEGRIA Referring Unavailable CLAUDINE DURÁN Primary Care Unavailable CLAUDINE DURÁN Primary Care Unavailable LEANDRA VENEGAS Referring Unavailable CLAUDINE DURÁN Primary Care Unavailable ADALID CLARK Attending Unavailable NICOLAS GRIFFITH Referring Unavailable TALAMPAS, CLAUDINE D Primary Care Unavailable TALAMPAS, CLAUDINE D Primary Care Unavailable TRENT-PALSHOOK, MONICA Referring Unavai lable TALAMPAS, CLAUDINE D Primary Care Unavailable TRENT-PALSHOOK, MONICA Referring Unavai lable TALAMPAS, CLAUDINE D Primary Care Unavailable MICHAEL BEAVERS Admitting Unavailable MICHAEL BEAVERS Attending Unavailable TALAMPAS, CLAUDINE D Primary Care Unavailable GENO HART Referring Unavailable TALAMPAS, CLAUDINE D Primary Care Unavailable BARTOLOME FRANCIS Attending Unavailable TRENT-PALSHOOK, MONICA Referring Unavai lable SWANSONJIMBO Attending Unavailable TALAMPAS, CLAUDINE D Primary Care Unavailable TALAMPAS, CLAUDINE D Primary Care Unavailable GENO HART Referring Unavailable TALAMPAS, CLAUDINE D Primary Care Unavailable TALAMPAS, CLAUDINE D Primary Care Unavailable NYASIA WICK Attending Unavailable TALAMPAS, CLAUDINE D Primary Care Unavailable TALAMPAS, CLAUDINE D Primary Care Unavailable SWANSON, JIMBO Referring Unavailable TALAMPAS, CLAUDINE D Primary Care Unavailable BIBI ALEGRIA Attending Unavailable TALAMPAS, CLAUDINE D Primary Care Unavailable TALAMPAS, CLAUDINE D Primary Care Unavailable TALAMPAS, CLAUDINE D Primary Care Unavailable TALAMPAS, CLAUDINE D Primary Care Unavailable JUVENCIO SAEED Admitting Unavailable JUVENCIO SAEED Attending Unavailable TALAMPAS, CLAUDINE D Primary Care Unavailable TALAMPAS, CLAUDINE D Primary Care Unavailable SELF Referring Unavailable TALAMPAS, CLAUDINE D Primary Care Unavailable JUVENCIO SAEED Attending Unavailable TALAMPAS, CLAUDINE D Primary Care Unavailable TRENT-PALSHOOK, MONICA Referring Unavai lable TALAMPAS, CLAUDINE D Primary Care Unavailable TRENT-PALSHOOK, MONICA Referring Unavai lable TALAMPAS, CLAUDINE D Primary Care Unavailable TRENT-PALSHOOK, MONICA Referring Unavai lable TALAMPAS, CLAUDINE D Primary Care Unavailable MICHAEL BEAVERS Attending Unavailable TALAMPAS, CLAUDINE D Primary Care Unavailable TRENT-PALSHOOK, MONICA Referring Unavai lable TALAMPAS, CLAUDINE D Primary Care Unavailable NYASIA WICK Referring Unavailable TALAMPAS, CLAUDINE D Primary Care Unavailable TALAMPAS, CLAUDINE D Primary Care Unavailable TALAMPAS, CLAUDINE D Primary Care Unavailable HELD, TAVON Referring Unavailable TALAMPAS, CLAUDINE D Primary Care Unavailable HELD, TAVON Referring Unavailable TALAMPAS, CLAUDINE D Primary Care Unavailable HELD, TAVON Referring Unavailable TALAMPAS, CLAUDINE D Primary Care Unavailable TALAMPAS, CLAUDINE D Primary Care Unavailable TALAMPAS, CLAUDINE D Primary Care Unavailable TALAMPAS, CLAUDINE D Primary Care Unavailable TALAMPAS, CLAUDINE D Primary Care Unavailable GENO HART Attending Unavailable TALAMPAS, CLAUDINE D Primary Care Unavailable GENO HART Referring Unavailable TALAMPAS, CLAUDINE D Primary Care Unavailable TALAMPAS, CLAUDINE D Primary Care Unavailable TALAMPAS, CLAUDINE D Attending Unavailable TALAMPAS, CLAUDINE D Primary Care Unavailable TALAMPAS, CLAUDINE D Referring Unavailable TALAMPAS, CLAUDINE D Primary Care Unavailable GENO HART Attending Unavailable JIMBO SWANSON Referring Unavailable TALAMPAS, CLAUDINE D Primary Care Unavailable TALAMPAS, CLAUDINE D Primary Care Unavailable TALAMPAS, CLAUDINE D Primary Care Unavailable TRENT-PALSHOOK, MONICA Referring Unavai lable TALAMPAS, CLAUDINE D Primary Care Unavailable TRENT-PALSHOOK, MONICA Referring Unavai lable TALAMPAS, CLAUDINE D Primary Care Unavailable TALAMPAS, CLAUDINE D Primary Care Unavailable KALAHASTI, VIDYASAGAR Referring Unavailabl e TALAMPAS, CLAUDINE D Primary Care Unavailable KALAHASTI, VIDYASAGAR Attending Unavailabl e JIMBO SWANSON Referring Unavailable TALAMPAS, CLAUDINE D Primary Care Unavailable GENO HART Referring Unavailable GENO HART Attending Unavailable TALAMPAS, CLAUDINE D Primary Care Unavailable HELD, LEANDRA Rees Referring Unavailable TALAMPAS, CLAUDINE D Primary Care Unavailable TALAMPAS, CLAUDINE D Attending Unavailable SELF Referring Unavailable TALAMPAS, CLAUDINE D Primary Care Unavailable TRENT-PALSHOOK, MONICA Referring Unavai lable TALAMPAS, CLAUDINE D Primary Care Unavailable GENO HART Referring Unavailable TALAMPAS, CLAUDINE D Primary Care Unavailable TALAMPAS, CLAUDINE D Primary Care Unavailable TALAMPAS, CLAUDINE D Primary Care Unavailable WILLIAM MESSINA Referring Unavailab le TALAMPAS, CLAUDINE D Primary Care Unavailable JIMBO SWANSON Attending Unavailable SELF Referring Unavailable TALAMPAS, CLAUDINE D Primary Care Unavailable TALAMPAS, CLAUDINE D Primary Care Unavailable BRISSA CHESTER Attending Unavailable TALAMPAS, CLAUDINE D Primary Care Unavailable TALAMPAS, CLAUDINE D Primary Care Unavailable TALAMPAS, CLAUDINE D Primary Care Unavailable SOHAIL MOSS, ZITA Attending Unavailable SOHAIL MOSS, ZITA Referring Unavailable Talampas, Claudine D Primary Care Unavailable Talampas, Claudine D Primary Care Unavailable SOHAIL MOSS, ZITA Referring Unavailable SOHAIL MOSS, ZITA Attending Unavailable Talampas, Claudine D Primary Care Unavailable Friend, Mathew Attending Unavailable Talampas, Claudine D Primary Care Unavailable SOHAIL MOSS, ZITA Attending Unavailable SOHAIL MOSS, ZITA Referring Unavailable Zahraa Mittal Attending Unavailable EmilianonasZahraa govea Referring Unavailable Talampas, Claudine D Primary Care Unavailable Talampas, Claudine D Primary Care Unavailable SOHAIL MOSS, ZITA Referring Unavailable SOHAIL MOSS, ZITA Attending Unavailable Talampas, Claudine D Primary Care Unavailable FriendMathew Attending Unavailable Talampas, Claudine D Referring Unavailable SOHAIL MOSS, ZITA Attending Unavailable SOHAIL MOSS, ZITA Referring Unavailable Talampas, Claudine D Primary Care Unavailable Talampas, Claudine D Primary Care Unavailable FriendMathew Consulting Unavailable FriendMathew Attending Unavailable Talampas, Claudine D Referring Unavailable Zahraa Mittal Attending Unavailable Talampas, Claudine D Primary Care Unavailable Talampas, Claudine D Referring Unavailable Talampas, Claudine D Primary Care Unavailable FriendMathew Attending Unavailable Talampas, Claudine D Referring Unavailable Talampas, Claudine D Primary Care Unavailable Diaz Puckett Attending Unavailable Talampas, Claudine D Referring Unavailable Allergies Allergy Classification Reported Allergen(s) Allergy Type Date of Onset Reaction(s) Facility Penicillins (antibiotic) (5 sources) Penicillins Drug Allergy 5 [facility] (20 sources) Penicillins; Translations: [PENICILLINS] Propensity to adverse reactions (disorder) 5 [facility]ository Medications Current Medications Medication Drug Class(es) Dates Sig (Normalized) Sig (Original) acetaminophen 500 mg oral tablet (20 sources) Start: 06-20-2024 take 2 tablets by mouth three times daily Acetaminophen 500 mg tablet Active 1000 mg PO THREE TIMES A DAY June 20, 2024 10:21am Pain Score 1-10 Start: 04-27-2023 End: 06-20-2024 take 2 tablets by mouth every six hours as needed for pain Acetaminophen 500 mg Tablet Discontinued 1000 mg PO EVERY 6 HOURS NEEDED as needed for Pain Score 1-10 0 0 April 27, 2023 1:00am June 20, 2024 10:24am Start: 04-27-2023 Start: 04-05-2023 End: 04-27-2023 Acetaminophen 325 mg Tablet Discontinued 650 mg PO EVERY 6 HOURS NEEDED as needed for Pain 1-10 Or Fever >100.7 0 0 April 05, 2023 1:00am April 27, 2023 2:18pm Start: 04-05-2023 End: 04-27-2023 acetaminophen 325 mg / HYDROcodone bitartrate 5 mg oral tablet (6 sources) Opioid Agonist Start: 05-20-2024 End: 05-27-2024 take 1-2 tablets by mouth every six hours as needed for pain HYDROcodone-acetaminophen (NORCO) 5-325 mg per tablet Indications: 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 rheumatoid factor (HCC) Take 1-2 tablets by mouth every 6 hours as needed for pain for up to 7 days. 21 tablet 05/20/2024 05/27/2024 Active Start: 10-11-2023 End: 10-18-2023 take 1 tablet by mouth at bedtime as needed for pain HYDROcodone-acetaminophen (NORCO) 5-325 mg per tablet Indications: Rheumatoid arthritis with positive rheumatoid factor, involving unspecified site (HCC) Take 1 tablet by mouth at bedtime as needed for pain for up to 7 days. 7 tablet 10/11/2023 10/18/2023 Active [id number] 200 actuat albuterol 0.09 mg/actuat metered dose inhaler (20 sources) beta2-Adrenergic Agonist Start: 06-13-2024 Albut rob Sulfate 90 mcg/actuation HFA aerosol inhaler Active 2 NMA INHALATION EVERY 4 HOURS NEEDED as needed June 13, 2024 12:00am Start: 04-05-2023 End: 08-13-2023 take 2.5 mg by inhalation every two hours as needed for wheezing Albuterol Sulfate 2.5 mg /3 mL (0.083 %) Solution For Nebulization Discontinued 2.5 mg INHALATION EVERY 2 HOURS NEEDED as needed for SOB/Wheezing 0 0 April 05, 2023 1:00am August 13, 2023 10:47am Start: 03-19-2023 End: 04-27-2023 Albuterol Sulfate 90 mcg/act uation HFA aerosol inhaler Discontinued 2 NMA INHALATION Q4H as needed for shortness of breath or wheezing March 19, 2023 1:00am April 27, 2023 2:18pm Start: 03-19-2023 End: 04-27-2023 Start: 03-19-2023 End: 04-27-2023 take 1 puff(s) by inhalation every four hours Albuterol Sulfate Discontinued 2 PUFF INHALATION Q4H March 19, 2023 1:00am April 27, 2023 2:18pm Start: 06-06-2021 End: 05-20-2024 take 2 puff(s) by inhalation every four hours as needed albuterol HFA (PROAIR HFA) 90 mcg/actuation inhaler Indications: Cough due to bronchospasm Inhale 2 Puffs as instructed every 4 hours as needed. 1 Each 2 05/20/2024 Active Start: 05-12-2019 End: 06-04-2021 take 2 puff(s) by inhalation every four hours as needed albuterol HFA (PROAIR HFA) 90 mcg/actuation inhaler Indications: Cough due to bronchospasm Inhale 2 Puffs as instructed every 4 hours as needed. 1 Inhaler 2 05/12/2019 06/04/2021 Discontinued Comment on above: Inhale 2 Puffs as in structed every 4 hours as needed. ascorbic acid 113 mg / beta carotene 7160 mg / cuprous oxide 0.4 mg / dl-alpha tocopheryl acetate 100 unt / zinc oxide 17.4 mg oral tablet (20 sources) Vitamin C Start: 03-19-2023 Vitamins A,C,N-Oznu-Jteewp (Preservision Areds) 2,148 mcg-113 mg-45 mg-17.4mg tablet Active 2 {tbl} PO TWICE A DAY March 19, 2023 1:00am eye health administer with AM and PM meals Start: 03-19-2023 Start: 03-13-2022 take 2 tablets by mo uth once daily at breakfast vit A,C,U-Smgf-Jognae (OCUVITE PRESERVISION) 2,148 mcg-113 mg-45 mg-17.4mg tab Take 2 tablets by mouth daily with breakfast. 03/13/2022 Active Comment on above: Take 2 tablets by mo [facility] daily with breakfast. cholecalciferol 0.025 mg oral capsule (20 sources) Vitamin D Start: 06-14-19 take 1 capsule by mouth once daily Cholecalciferol (Vitamin D3) 25 mcg (1,000 unit) capsule Active 25 ug PO daily June 13, 2024 12:00am Start: 03-26-2023 End: 08-13-2023 take 1 capsule by mouth once daily Cholecalciferol (Vitamin D3) 25 mcg (1,000 unit) capsule Discontinued 25 ug PO DAILY March 26, 2023 1:00am August 13, 2023 10:47am health maintenance Start: 01-24-2011 take 1 capsule by mo [facility] once daily Cholecalciferol, Vitamin D3, 1,000 unit ORAL Cap Take 1 capsule by mouth once daily. 1 capsule 0 01/24/2011 Active Comment on above: Take 1 capsule by [facility] once daily. clindamycin 300 mg oral capsule (4 sources) Lincosamide Antibacterial Start: 06-21-19 take 2 capsules by mouth every hour Clindamycin Hcl 300 mg capsule Active 600 mg PO ONCE 2 3 June 20, 2024 12:00am Take 2 capsules by mouth 1 hour prior to dental appointments. Start: 05-03-2024 End: 05-08-2024 take 1 capsule by mouth every eight hours clindamycin (CLEOCIN) 300 mg capsule Take 1 capsule by mouth every 8 hours for 15 doses. 15 capsule 05/03/2024 05/08/2024 Active diclofenac sodium 0.01 mg/mg topical gel (20 sources) Nonsteroidal Anti-inflammatory Drug Start: 10-11-2023 apply 2 g topically four times daily diclofenac (VOLTAREN) 1 % topical gel Indications: Rheumatoid arthritis with positive rheumatoid factor, involving unspecified site (HCC) Apply 2 g to affected area four times daily. Both knees 50 g 1 10/11/2023 Active Start: 08-18-2023 Diclofenac Sod ium (Voltaren Arthritis Pain) 1 % gel Active 4 g TOPICAL TWICE DAILY NEEDED as needed for knee pain 100 0 August 18, 2023 12:56pm doxycycline hyclate 100 mg oral tablet (4 sources) Tetracycline-class Drug Start: 02-07-2023 End: 02-17-2023 take 1 tablet by mouth twice daily doxycycline (VIBRA-TABS) 100 mg tablet Take 1 tablet by mouth two times a day for 10 days. 20 tablet 0 02/07/2023 02/17/2023 Active Start: 09-20-2021 End: 09-30-2021 take 1 tablet by mouth twice daily doxycycline (VIBRA-TABS) 100 mg tablet Take 1 tablet by mouth twice daily for 10 days. 20 tablet 0 09/20/2021 09/30/2021 Active Comment on above: Take 1 tablet by slime th twice daily for 10 days. Take 1 tablet by slime th two times a day for 10 days. ferrous sulfate 325 mg oral tablet (2 sources) Start: take 1 tablet by mouth once daily Ferrous Sulfate 325 mg (65 mg iron) tablet Active 325 mg PO daily June 20, 2024 12:00am fluticasone propionate 0.05 mg/actuat metered dose nasal spray (20 sources) Corticosteroid Start: take 1 spray(s) nasal route once daily fluticasone (FLONASE) 50 mcg/actuation nasal spray Use 1 spray in each nostril once daily. 3 each 3 06/23/2024 Active Start: 04-05-2023 End: 04-27-2023 Fluticasone Propionate 50 mc g/actuation [place],Suspension Discontinued 1 NMA NASAL DAILY 0 0 April 05, 2023 1:00am April 27, 2023 2:17pm Start: 03-19-2023 End: 08-13-2023 Fluticasone Propionate 50 mc g/actuation spray,suspension Active 1 NMA INTRANASAL DAILY August 13, 2023 12:00am Start: 03-19-2023 End: 04-27-2023 Start: 03-19-2023 End: 04-27-2023 Fluticasone Propionate Disco ntinued 1 SPRAY NASAL DAILY 0 April 05, 2023 1:00am April 27, 2023 2:17pm Start: 03-19-2023 Fluticasone Pr opionate Active 2 SPRAY INTRANASAL Q12H March 19, 2023 12:00am Start: 07-14-2020 End: 06-20-2024 take 1 spray(s) nasal route once daily fluticasone (FLONASE) 50 mcg/actuation nasal spray Use 1 [place] in each nostril once daily. 3 Each 3 07/20/2022 06/20/2024 Discontinued Comment on above: Use 1 [place] in each nostril once daily. Fluticasone Propion-Salmeterol (20 sources) Corticosteroid, beta2-Adrenergic Agonist Start: 06-13-2024 Fluticasone Propion-Salmeterol (Wixela Inhub) 250-50 mcg/dose blister with device Active 1 NMA INHALATION TWICE A DAY June 13, 2024 12:00am Start: 05-20-2024 take 1 puff(s) by in halation twice daily fluticasone-salmeterol (WIXELA INHUB) 250-50 mcg/dose inhaler Inhale 1 Puff as instructed two times a day. 3 Each 3 05/20/2024 Active Start: 08-13-2023 End: 06-20-2024 Fluticasone Propion-Salmeter ol 250-50 mcg/dose blister with device Discontinued 1 NMA INHALATION TWICE A DAY August 13, 2023 12:00am June 20, 2024 10:22am Start: 08-13-2023 Fluticasone Pr opion-Salmeterol 250-50 mcg/dose blister with device Active 1 NMA INHALATION TWICE A DAY August 13, 2023 12:00am Start: 06-05-2023 End: 05-20-2024 take 1 puff(s) by inhalation twice daily fluticasone-salmeterol (WIXELA INHUB) 250-50 mcg/dose inhaler Inhale 1 Puff as instructed two times a day. 3 Each 3 06/05/2023 05/20/2024 Discontinued Start: 06-05-2023 take 1 puff(s) by in halation twice daily fluticasone-salmeterol (WIXELA INHUB) 250-50 mcg/dose inhaler Inhale 1 Puff as instructed two times a day. 3 Each 3 06/05/2023 Suspended Start: 06-05-2023 take 1 puff(s) by in halation twice daily fluticasone-salmeterol (WIXELA INHUB) 250-50 mcg/dose inhaler Inhale 1 Puff as instructed two times a day. 3 Each 3 06/05/2023 Active folic acid 0.8 mg oral capsule (20 sources) Start: 06-13-2024 take 1 capsule by mouth once daily Folic Acid 0.8 mg capsule Active 0.8 mg PO daily June 13, 2024 12:00am Start: 01-24-2007 End: 11-10-2021 FOLIC ACID 1 MG TAB Take 2 t ablets once daily 60 12 01/24/2007 11/10/2021 Discontinued FOLIC ACID ORAL Take by mouth. Suspended FOLIC ACID ORAL Take by mouth. Active FOLIC ACID ORAL Take by mouth. 0 Suspended FOLIC ACID ORAL Take by mouth. 0 Active Comment on above: Take 2 tablets once daily Take by mouth. gabapentin 300 mg oral capsule (20 sources) Anti-epileptic Agent Start: 03-19-2023 End: 04-05-2023 take 1 capsule by mouth every twelve hours Gabapentin 300 mg Capsule Active 300 mg PO EVERY 12 HOURS 0 0 April 05, 2023 1:00am nerve pain Start: 11-09-2020 End: 07-08-2025 take 1 capsule by mouth twice daily gabapentin (NEURONTIN) 300 mg capsule Indications: 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 rheumatoid factor (HCC) , Low back pain with right-sided sciatica, unspecified back pain laterality, unspecified chronicity Take 1 capsule by mouth two times a day. 180 capsule 3 07/08/2024 07/08/2025 Active Comment on above: Take 1 capsule by [facility] twice daily. Take 1 capsule by [facility] two times a day. iv contrast (will be provided with radiology test) (1 source) Start: End: inject 1 dose intravenously once iv contrast (will be provided with radiology test) Indications: Nonrheumatic aortic valve stenosis CTA CHST/ABD/PEL. No IV access, insert saline lock prior to the sedation, infusion, injection for imaging exam. Discontinue saline lock post exam. If Pt. has a central line or IVAD, may access for administration according to line specific nursing protocol. Once exam is complete flush line and de-access according to line specific nursing protocol in the CT contrast administration guidelines link. 1 Each 01/08/2024 01/09/2024 Active methotrexate 2.5 mg oral tablet (20 sources) Folate Analog Metabolic Inhibitor Start: take 4 tablets by mouth every week Methotrexate Sodium 2.5 mg tablet Active 10 mg PO EVERY WEEK June 13, 2024 12:00am Start: 03-19-2023 End: 03-31-2023 take 2 tablets by mouth every week in the morning, then take 1 tablet by mouth in the evening Methotrexate Sodium 2.5 mg tablet Discontinued 2.5 mg PO EVERY WEEK March 19, 2023 1:00am March 31, 2023 9:22pm On Hold: Resume on 04/24/23. HOLD UNTIL ALLOWED TO RESTART GIVEN RECENT DISSEMINATED HISTOPLASMOSIS AND COVID. Take every Sunday; Patient takes 2 tablets in AM and 1 tablet in PM Start: 07-26-2013 End: 05-05-2024 take 1 tablet by mouth once in the evening methotrexate 2.5 mg tablet Take 2.5 mg by mouth every Sunday. PT takes 2 tablets in am and 1 tablets in pm 12 tablet 0 07/26/2013 05/05/2024 Discontinued Start: 07-26-2013 take 2 tablets by mo ut once in the evening methotrexate 2.5 mg tablet Take 2.5 mg by mouth every Sunday. PT takes 2 tablets in am and 2 tablets in pm 12 tablet 0 07/26/2013 Active Comment on above: Take 2.5 mg by mouth every Sunday. PT takes 8 tabs every Sunday Take 2.5 mg by mouth every Sunday. PT takes 2 tablets in am and 2 tablets in pm Take 2.5 mg by mouth every Sunday. PT takes 2 tablets in am and 1 tablets in pm 24 hr metoprolol succinate 25 mg extended release oral tablet (8 sources) beta-Adrenergic Pietro Start: 07-18-2024 take 1 tablet by mouth once daily Metoprolol Succinate 25 mg tablet extended release 24 hr Active 25 mg PO daily 18 01July 18, 2024 12:00am take 25 mg by mouth once daily M ETOPROLOL SUCCINATE ORAL Take 25 mg by mouth once daily. Active Multivitamin (Daily Multi-Vitamin) tablet (12 sources) Start: 03-19-2023 Multivitamin ( Daily Multi-Vitamin) tablet Active 1 {tbl} PO DAILY March 19, 2023 1:00am supplement Start: 03-19-2023 Multivitamin ( Daily Multi-Vitamin) tablet Active 1 {tbl} PO DAILY March 19, 2023 1:00am Start: 03-19-2023 take 1 tablet by slime th once daily Multivitamin (Daily Multi-Vitamin) tablet Active 1 TABLET PO DAILY March 19, 2023 1:00am Start: 03-19-2023 take 1 tablet by slime th once daily Multivitamin (Daily Multi-Vitamin) tablet Active 1 TABLET PO DAILY March 19, 2023 12:00am mupirocin 0.02 mg/mg topical ointment (2 sources) RNA Synthetase Inhibitor Antibacterial Start: 09-20-2021 End: 09-30-2021 mupirocin (BACTROBAN) 2 % ointment Apply 1 application to affected area twice daily for 10 days. 15 g 0 09/20/2021 09/30/2021 Active Comment on above: Apply 1 application to affected area twice daily for 10 days. [place] 3-Chp-Qau-Fish Oil (Fish Oil) 1,200 (144-216) mg capsule (3 sources) Start: 10-01-2023 [place] 3-Dha-Ep a-Fish Oil (Fish Oil) 1,200 (144-216) mg capsule Active 1 NMA PO DAILY October 01, 2023 12:00am omega-3 fatty acids/vitamin e(FISH OIL 1,000 MG CAP) (20 sources) Start: 04-01-2009 omega-3 fatty acids/vitamin e(FISH OIL 1,000 MG CAP) Take one(1) capsule daily. 0 04/01/2009 Suspended Start: 04-01-2009 omega-3 fatty acids/vitamin e(FISH OIL 1,000 MG CAP) Take one(1) capsule daily. 0 04/01/2009 Active Comment on above: Take one(1) capsule daily. perflutren lipid microspheres 1.3 mL in NaCl (PF) 0.9% 10 mL injection (DEFINITY) (20 sources) Start: 05-02-2024 End: 05-09-2024 perflutren lipid microspheres 1.3 mL in NaCl (PF) 0.9% 10 mL injection (DEFINITY) Start: 08-27-2023 End: 05-05-2024 perflutren lipid microsphere s 1.3 mL in NaCl (PF) 0.9% 10 mL injection (DEFINITY) Start: 08-27-2023 End: 11-25-2024 perflutren lipid microsphere s 1.3 mL in NaCl (PF) 0.9% 10 mL injection (DEFINITY) Start: 08-29-2022 End: 08-08-2023 perflutren lipid microsphere s 1.3 mL in NaCl (PF) 0.9% 10 mL injection (DEFINITY) Start: 08-29-2022 End: 11-28-2023 perflutren lipid microsphere s 1.3 mL in NaCl (PF) 0.9% 10 mL injection (DEFINITY) Start: 08-12-2021 End: 08-29-2022 perflutren lipid microsphere s 1.3 mL in NaCl (PF) 0.9% 10 mL injection (DEFINITY) Start: 08-12-2021 End: 11-11-2022 perflutren lipid microsphere s 1.3 mL in NaCl (PF) 0.9% 10 mL injection (DEFINITY) Start: 02-22-2021 End: 08-12-2021 perflutren lipid microsphere s 1.3 mL in NaCl (PF) 0.9% 10 mL injection (DEFINITY) Start: 02-22-2021 End: 05-24-2022 perflutren lipid microsphere s 1.3 mL in NaCl (PF) 0.9% 10 mL injection (DEFINITY) microencapsulated potassium chloride 20 meq extended release oral tablet (20 sources) Start: 03-19-2020 End: 08-18-2024 take 1 tablet by mouth twice daily potassium chloride ER (KLOR-CON M20) 20 mEq tablet Take 1 tablet by mouth two times a day. 180 tablet 3 08/18/2024 Active Comment on above: Take 1 tablet by slime twice daily. spironolactone 25 mg oral tablet (20 sources) Aldosterone Antagonist Start: 09-05-2023 End: 07-22-2024 take 1 tablet by mouth once daily Spironolactone 25 mg tablet Active 25 mg PO DAILY June 13, 2024 12:00am sulfaSALAzine 500 mg delayed release oral tablet (20 sources) Aminosalicylate Start: 06-13-2024 take 1 g by mouth twice daily Sulfasalazine 500 mg tablet,delayed release (DR/EC) Active 1 g PO TWICE A DAY June 13, 2024 12:00am Start: 02-01-2024 take 2 tablets by mo uth twice daily sulfaSALAzine EC (AZULFIDINE EN) 500 mg EC tablet Take 1,000 mg by mouth two times a day. 02/01/2024 Active THERAPEUTIC MULTIVITAMIN TAB (20 sources) Start: 03-06-2005 THERAPEUTIC MU LTIVITAMIN TAB Take one(1) tablet daily. 0 03/06/2005 Suspended Start: 03-06-2005 THERAPEUTIC MU LTIVITAMIN TAB Take one(1) tablet daily. 0 03/06/2005 Active Comment on above: Take one(1) tablet d aily. 60 actuat tiotropium 0.0025 mg/actuat inhalation spray (20 sources) Anticholinergic Start: 08-13-19 take 2.5 ug by inhalation once daily Tiotropium [place] (Spiriva Respimat) 2.5 mcg/actuation mist Active 2 NMA INHALATION DAILY August 13, 2023 12:00am Start: 07-30-2023 End: 07-22-2024 take 2 puff(s) by inhalation once daily, then take 2 puff(s) by inhalation once daily tiotropium bromide (SPIRIVA RESPIMAT) 2.5 mcg/actuation inhaler Indications: COPD without exacerbation (HCC) Inhale 2 Puffs as instructed once daily. Inhale two puffs once daily. 3 Each 3 08/31/2023 07/22/2024 Discontinued Start: 03-19-2023 End: 04-27-2023 take 2.5 ug by inhalation every twenty-four hours Tiotropium [place] (Spiriva Respimat) 2.5 mcg/actuation mist Discontinued 2 NMA INHALATION Q24H March 19, 2023 1:00am April 27, 2023 2:17pm Start: 03-19-2023 End: 04-27-2023 Start: 03-19-2023 End: 04-27-2023 take 1 puff(s) by inhalation every twenty-four hours Tiotropium [place] (Spiriva Respimat) 2.5 mcg/actuation mist Discontinued 2 PUFF INHALATION Q24H March 19, 2023 1:00am April 27, 2023 2:17pm Start: 11-09-2020 End: 07-28-2023 take 2 puff(s) by inhalation once daily, then take 2 puff(s) by inhalation once daily tiotropium bromide (SPIRIVA RESPIMAT) 2.5 mcg/actuation inhaler Indications: COPD without exacerbation (HCC) Inhale 2 Puffs as instructed once daily. Inhale two puffs once daily. 3 Each 3 11/08/2021 10/27/2022 Discontinued Comment on above: Inhale 2 Puffs as in structed once daily. Inhale two puffs once daily. warfarin sodium 1 mg oral tablet (20 sources) Vitamin K Antagonist Start: 12-13-2023 End: 05-20-2024 warfarin (COUMADIN) 1 mg tablet Take 6 mg and Sunday and5 mg all other days or as directed. 30 tablet 6 05/20/2024 Active Start: 08-13-2023 End: 08-18-2023 Warfarin (Jantoven) 7.5 mg t ablet Discontinued 7.5 mg PO TH August 13, 2023 12:00am August 18, 2023 12:55pm Start: 04-27-2023 Start: 04-27-2023 End: 08-13-2023 take 1 tablet by mouth at dinner Warfarin (Jantoven) 1 mg Tablet Discontinued 1 mg PO WITH DINNER 0 0 April 27, 2023 1:00am August 13, 2023 10:50am Start: 04-27-2023 Start: 04-27-2023 End: 08-13-2023 take 1 tablet by mouth at dinner Warfarin (Jantoven) 6 mg Tablet Discontinued 6 mg PO WITH DINNER 0 0 April 27, 2023 1:00am August 13, 2023 10:50am Start: 11-21-2022 End: 12-20-2023 take 1 tablet by mouth once daily warfarin (COUMADIN) 5 mg tablet Indications: Chronic anticoagulation Take 1 tablet by mouth once daily. or as directed 90 tablet 3 10/24/2023 Active Start: 07-11-2022 End: 07-10-2023 warfarin (COUMADIN) 5 mg tab let Indications: Chronic anticoagulation Take 7.5 mg , Sun,Sun, Sat, Sun; and 5 mg on Sunday and Sunday 180 tablet 3 10/31/2022 07/10/2023 Discontinued Start: 11-29-2020 End: 03-13-2022 warfarin (COUMADIN) 5 mg tab let Indications: Embolism and thrombosis (HCC) Take 7.5 mg Tu, Wed, [place]abel, Sat, Sun; and 5 mg on Sunday and Sunday. 180 tablet 3 11/29/2020 03/13/2022 Discontinued Comment on above: Take 7.5 mg Tu, Wed, Anabel, Sat, Sun; and 5 mg on Sunday and Sunday. Take 7.5 mg Tu, Anabel, Fri, Sat, Sun; and 5 mg on Sunday and Sunday take 1 AND 1/2 table ts by mouth once daily ON SUNDAY, SUNDAY, SUNDAY, SUNDAY AND SUNDAY and 1 tablet by mouth once daily ON SUNDAY AND SUNDAY (20 sources) Start: 04-27-2023 Start: 03-26-2023 End: 04-27-2023 Start: 03-19-2023 Completed/Discontinued Medications Medication Drug Class(es) Dates Sig (Normalized) Sig (Original) 0.4 ml adalimumab 100 mg/ml auto-injector (20 sources) Tumor Necrosis Factor Pietro Start: 03-19-2023 End: 04-05-2023 Adalimumab (Humira(Cf) Pen) 40 mg/0.4 mL pen injector kit Discontinued 40 mg SC Q14D March 19, 2023 1:00am April 05, 2023 12:26pm On Hold: Resume on 04/24/23. HOLD UNTIL ALLOWED TO RESTART GIVEN RECENT DISSEMINATED HISTOPLASMOSIS AND COVID. Start: 03-20-2017 End: 02-29-2024 HUMIRA PEN 40 mg/0.8 mL pnkt Inject 40 mg subcutaneously. Every other week. 03/20/2017 02/29/2024 Discontinued Comment on above: Inject 40 mg subcuta neously. Every other week. albuterol 0.833 mg/ml / ipratropium bromide 0.167 mg/ml inhalation solution (18 sources) Anticholinergic, beta2-Adrenergic Agonist Start: End: take 1 mL by inhalation every six hours Ipratropium-Albuter ol 0.5 mg-3 mg(2.5 mg base)/3 mL Solution For Nebulization Discontinued 3 mL INHALATION EVERY 6 HOURS WHILE AWAKE 0 0 April 05, 2023 1:00am August 13, 2023 10:46am breathing Start: 04-05-2023 Start: 04-05-2023 take 1 mL by inhalat ion every six hours Ipratropium-Albuterol Active 3 ML INHALATION EVERY 6 HOURS WHILE AWAKE 0 April 05, 2023 1:00am aspirin 81 mg delayed release oral tablet (19 sources) Platelet Aggregation Inhibitor, Nonsteroidal Anti-inflammatory Drug Start: 06-13-2024 End: 06-20-2024 Aspirin (Adult Low Dose Aspirin) 81 mg tablet,delayed release (DR/EC) Discontinued 81 mg PO daily June 13, 2024 12:00am June 20, 2024 10:21am Start: 05-03-2024 End: 07-22-2024 take 1 tablet by mouth once daily aspirin 81 mg chewable tablet Take 1 tablet by mouth once daily. 81mg baby aspirin till INR is therapeutic 30 tablet 05/03/2024 07/22/2024 Discontinued budesonide 0.25 mg/ml inhalation suspension (18 sources) Corticosteroid Start: 04-05-2023 End: 08-13-2023 take 0.5 mg by inhalation every twelve hours Budesonide 0.5 mg/2 mL Suspension For Nebulization Discontinued 0.5 mg INHALATION EVERY 12 HOURS 0 0 April 05, 2023 1:00am August 13, 2023 10:46am breathing Budesonide-Formo terol (20 sources) Corticosteroid, beta2-Adrenergic Agonist Start: 03-19-2023 End: 04-27-2023 Budesonide-Formot rob (Symbicort) 160-4.5 mcg/actuation HFA aerosol inhaler Discontinued 2 NMA INHALATION Q12H March 19, 2023 1:00am April 27, 2023 2:17pm Start: 03-19-2023 End: 04-27-2023 Start: 03-19-2023 End: 04-27-2023 take 1 puff(s) by inhalation every twelve hours Budesonide-Formoterol (Symbicort) 160-4.5 mcg/actuation HFA aerosol inhaler Discontinued 2 PUFF INHALATION Q12H March 19, 2023 1:00am April 27, 2023 2:17pm Start: 03-19-2023 take 1 puff(s) by in halation every twelve hours Budesonide-Formoterol (Symbicort) 160-4.5 mcg/actuation HFA aerosol inhaler Active 2 PUFF INHALATION Q1March 19, 2023 12:00am Start: 03-19-2023 take 1 puff(s) by in halation every twelve hours Budesonide-Formoterol [Budesonide-Formoterol Hfa 160 Mcg-4.5 Mcg/Actuation Aerosol Inhaler] (Budesonide-Formoterol Hfa 160 Mcg-4.5 Mcg/Actuation ) 160-4.5 mcg/actuation HFA aerosol inhaler Active 2 PUFF INHALATION Q1March 19, 2023 12:00am Start: 01-24-2023 End: 06-05-2023 budesonide-formoterol (SYMBI NATHANIEL) 160-4.5 mcg/actuation inhaler USE 2 INHALATIONS TWICE A DAY INSTRUCTED 30.6 g 3 01/24/2023 06/05/2023 Discontinued Start: 01-24-2023 budesonide-for moterol (SYMBICORT) 160-4.5 mcg/actuation inhaler USE 2 INHALATIONS TWICE A DAY INSTRUCTED 30.6 g 3 01/24/2023 Suspended Start: 01-24-2023 budesonide-for moterol (SYMBICORT) 160-4.5 mcg/actuation inhaler USE 2 INHALATIONS TWICE A DAY INSTRUCTED 30.6 g 3 01/24/2023 Active Start: 08-15-2022 End: 01-24-2023 take 2 puff(s) by inhalation twice daily budesonide-formoterol (SYMBICORT) 160-4.5 mcg/actuation inhaler Inhale 2 Puffs as instructed twice daily. 31 g 1 08/15/2022 01/24/2023 Discontinued Start: 08-15-2022 End: 02-11-2023 take 2 puff(s) by inhalation twice daily budesonide-formoterol (SYMBICORT) 160-4.5 mcg/actuation inhaler Inhale 2 Puffs as instructed twice daily. 31 g 1 08/15/2022 02/11/2023 Active Start: 08-01-2021 End: 08-15-2022 SYMBICORT 160-4.5 mcg/actuat ion inhaler USE 2 INHALATIONS TWICE A DAY INSTRUCTED 3 Inhaler 3 08/01/2021 08/15/2022 Discontinued Start: 08-11-2020 End: 07-29-2021 SYMBICORT 160-4.5 mcg/actuat ion inhaler USE 2 INHALATIONS TWICE A DAY INSTRUCTED 3 Inhaler 3 08/11/2020 07/29/2021 Discontinued Comment on above: USE 2 INHALATIONS TW ICE A DAY INSTRUCTED Inhale 2 Puffs as in structed twice daily. ciprofloxacin 500 mg oral tablet (20 sources) Quinolone Antimicrobial Start: End: take 1 tablet by mouth every twelve hours Ciprofloxacin Hcl 500 mg tablet Discontinued 500 mg PO Q12H March 26, 2023 1:00am April 05, 2023 12:27pm Comment on above: Take 1 tablet by slime every 12 hours at 6 am and 6 pm for 3 doses. citalopram 10 mg oral tablet (16 sources) Serotonin Reuptake Inhibitor Start: End: take 1 tablet by mouth once daily Citalopram 10 mg Tablet Discontinued 10 mg PO DAILY 0 April 27, 2023 1:00am August 13, 2023 10:47am dexamethasone 6 mg oral tablet (20 sources) Corticosteroid Start: End: take 1 tablet by mouth once daily Dexamethasone 6 mg tablet Discontinued 6 mg PO DAILY March 26, 2023 1:00am April 05, 2023 12:27pm Comment on above: Take 1 tablet by slime daily with breakfast for 4 doses. dextromethorphan hydrobromide 2 mg/ml / guaiFENesin 20 mg/ml oral solution (16 sources) Uncompetitive R-qzmnox-H-aspartate Receptor Antagonist, Sigma-1 Agonist Start: End: take 1 mL by mouth every six hours as needed for cough Dextromethorphan-Gua ifenesin 10-100 mg/5 mL Syrup Discontinued 10 mL PO EVERY 6 HOURS NEEDED as needed for COUGH 0 April 27, 2023 1:00am August 13, 2023 10:48am Start: 04-27-2023 Start: 04-27-2023 take 1 mL by mouth e very six hours as needed Dextromethorphan-Guaifenesin Active 10 ML PO EVERY 6 HOURS NEEDED 0 April 27, 2023 1:00am docusate sodium 50 mg / sennosides, long term 8.6 mg oral tablet (18 sources) Start: 04-05-2023 End: 04-27-2023 Sennosides-Docusate Sodium ( Stool Softener-Stimulant Laxat) 8.6-50 mg Tablet Discontinued 2 {tbl} PO TWICE DAILY NEEDED as needed for Constipation 0 April 05, 2023 1:00am April 27, 2023 2:19pm Start: 04-05-2023 End: 04-27-2023 econazole nitrate 10 mg/ml topical cream (20 sources) Azole Antifungal Start: 04-02-2018 End: 11-10-2021 econazole (SPECTAZOLE) 1 % cream 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 to L fifth toe 15 g 1 04/02/2018 11/10/2021 Discontinued Comment on above: Apply to affected ar ea once daily. to L fifth toe furosemide 20 mg oral tablet (20 sources) Loop Diuretic Start: 08-22-2023 End: 03-21-2024 furosemide (LASIX) 20 mg tablet Indications: Bilateral lower extremity edema Take 1-2 tablets by mouth two times a day as needed. Take daily for x5 days and then can use as needed daily after that for swelling. 60 tablet 1 08/22/2023 03/21/2024 Discontinued (Course of therapy completed) Start: 08-08-2023 End: 08-22-2023 take 1 tablet by mouth once daily as needed for edema Furosemide 20 mg tablet Active 20 mg PO DAILY as needed for edema August 13, 2023 12:00am Start: 03-28-2023 End: 04-05-2023 take 1 tablet by mouth once daily Furosemide (Lasix) 20 mg tablet Discontinued 20 mg PO DAILY 14 14 0 March 28, 2023 1:00am April 05, 2023 12:32pm hydroCHLOROthiazide 12.5 mg / irbesartan 150 mg oral tablet (20 sources) Thiazide Diuretic, Angiotensin 2 Receptor Pietro Start: 03-19-2023 End: 04-05-2023 Start: 03-19-2023 End: 04-05-2023 take 1 tablet by mouth once daily Irbesartan-Hydrochlorothiazide Discontin ued 1 TABLET PO DAILY March 19, 2023 1:00am April 05, 2023 12:27pm Start: 11-09-2020 End: 04-05-2023 Irbesartan-Hydrochlorothiazi de 150-12.5 mg tablet Discontinued 1 {tbl} PO DAILY March 19, 2023 1:00am April 05, 2023 12:27pm On Hold: Resume on 04/24/23. May resume if appropriate and repeat BP assessments and renal function normalized upon PCP re-evaluation at follow-up. Comment on above: Take 1 tablet by slime th once daily. itraconazole 10 mg/ml oral solution (20 sources) Azole Antifungal Start: End: take 20 mL by mouth twice daily itraconazole (SPORANOX) 10 mg/mL solution Indications: histoplasmosis Take 20 mL by mouth two times a day. 1200 mL 02/21/2024 04/30/2024 Discontinued (Course of therapy completed) Start: 12-11-2023 End: 01-17-2024 take 20 mL by mouth twice daily itraconazole (SPORANOX ) 10 mg/mL solution Indications: histoplasmosis Take 20 mL by mouth two times a day. 1200 mL 12/18/2023 Active Start: 11-05-2023 End: 12-09-2023 take 20 mL by mouth twice daily itraconazole (SPORANOX ) 10 mg/mL solution Indications: Disseminated histoplasmosis Take 20 mL by mouth two times a day. 1200 mL 11/05/2023 12/09/2023 Discontinued Start: 08-13-2023 End: 06-13-2024 take 10 mg by mouth twice daily Itraconazole 10 mg/mL solution Discontinued 200 mg PO TWICE A DAY August 13, 2023 12:00am June 13, 2024 9:40am Start: 07-21-2023 End: 12-17-2024 take 2 capsules by mouth twice daily itraconazole (SPORANOX) 100 mg capsule Take 2 capsules by mouth two times a day. 120 capsule 07/21/2023 03/21/2024 Discontinued (Course of therapy completed) Start: 04-05-2023 End: 08-13-2023 take 1 capsule by mouth twice daily at mealtime Itraconazole 100 mg Capsule Discontinued 200 mg PO TWICE DAILY WITH MEALS 0 0 April 05, 2023 1:00am August 13, 2023 10:52am histoplasmosis Start: 04-05-2023 Start: 03-26-2023 End: 04-27-2023 take 10 mg by mouth every eight hours Start: 03-26-2023 End: 04-27-2023 Start: 03-26-2023 take 200 mg by mouth twice daily Itraconazole Active 200 MG PO TWICE A DAY March 26, 2023 12:00am administer on an empty stomach Start: 03-25-2023 End: 11-03-2023 take 20 mL by mouth twice daily itraconazole (SPORANOX ) 10 mg/mL solution Indications: Disseminated histoplasmosis Take 20 mL by mouth two times a day. 1200 mL 09/28/2023 11/03/2023 Discontinued Start: 03-19-2023 End: 03-31-2023 take 1 capsule by mouth every eight hours Itraconazole 100 mg capsule Discontinued 100 mg PO Q8H March 19, 2023 1:00am March 31, 2023 9:21pm Start: 03-19-2023 End: 03-31-2023 Start: 03-14-2023 itraconazole ( SPORANOX) 100 mg capsule Indications: Disseminated histoplasmosis Take 2 capsules by mouth as directed. Take 200 mg (2 capsules) three times daily for 3 days, then twice daily. 138 capsule 2 03/14/2023 Suspended Comment on above: Take 2 capsules by m outh as directed. Take 200 mg (2 capsules) three times daily for 3 days, then twice daily. Take 20 mL by mouth two times a day. leucovorin 5 mg oral tablet (20 sources) Folate Analog Start: End: take 3 tablets by mouth once daily Leucovorin Calcium 5 mg tablet Discontinued 15 mg PO DAILY March 19, 2023 1:00am March 31, 2023 9:21pm On Hold: Resume on 04/24/23. HOLD UNTIL ALLOWED TO RESTART GIVEN RECENT DISSEMINATED HISTOPLASMOSIS AND COVID. Start: 03-19-2023 End: 03-31-2023 End: 05-05-2024 take 1 tablet by mouth once daily leucovorin (LEUCOVORIN) 15 mg tablet Take 15 mg by mouth once daily. 05/05/2024 Discontinued Comment on above: Take 15 mg by mouth once daily. loperamide hydrochloride 2 mg oral capsule (20 sources) Opioid Agonist Start: 03-25-2023 End: 04-30-2024 Loperamide (Anti-Diarrheal (Loperamide)) 2 mg capsule Discontinued 4 mg PO THREE TIMES A DAY March 26, 2023 1:00am April 05, 2023 12:27pm diarrhea Comment on above: Take 1 capsule by [place] three times a day as needed for diarrhea for up to 7 days. Menthol / Zinc Oxide (6 sources) Start: 04-27-2023 End: 08-13-2023 Menthol-Zinc Oxide (Calmoseptine) 0.44-20.6 % Ointment Discontinued 1 NMA TOPICAL TWICE A DAY 0 0 April 27, 2023 1:00am August 13, 2023 10:48am Please contact the information source for Protocol details. Start: 04-27-2023 End: 08-13-2023 Menthol-Zinc Oxide (Calmosep rashi) 0.44-20.6 % Ointment Discontinued 1 NMA TOPICAL TWICE A DAY 0 April 27, 2023 1:00am August 13, 2023 10:48am Please contact the information source for Protocol details. Start: 04-27-2023 Menthol-Zinc O xide (Calmoseptine) 0.44-20.6 % Ointment Active 1 APPLIC TOPICAL TWICE A DAY 0 April 27, 2023 1:00am metroNIDAZOLE 500 mg oral tablet (20 sources) Nitroimidazole Antimicrobial Start: 03-26-2023 End: 04-05-2023 take 1 tablet by mouth three times daily Metronidazole 500 mg tablet Discontinued 500 mg PO THREE TIMES A DAY March 26, 2023 1:00am April 05, 2023 12:27pm Start: 03-25-2023 End: 03-27-2023 take 1 tablet by mouth every eight hours metroNIDAZOLE (FLAGYL) 500 mg tablet Take 1 tablet by mouth every 8 hours for 5 doses. 5 tablet 0 03/25/2023 03/27/2023 Active Comment on above: Take 1 tablet by slime th every 8 hours for 5 doses. Mucus Clearing Device (QUAKE VIBRATORY PEP) renetta (20 sources) Start: 02-23-2023 End: 04-30-2024 Mucus Clearing Device (QUAKE VIBRATORY PEP) renetta Indications: Bronchiectasis without complication (HCC) Provide 1 device 1 Each 02/23/2023 04/30/2024 Discontinued (Course of therapy completed) Start: 02-23-2023 Mucus Clearing Device (QUAKE VIBRATORY PEP) renetta Indications: Bronchiectasis without complication (HCC) Provide 1 device 1 Each 02/23/2023 Active Start: 02-23-2023 Mucus Clearing Device (QUAKE VIBRATORY PEP) renetta Indications: Bronchiectasis without complication (HCC) Provide 1 device 1 Each 0 02/23/2023 Active Start: 02-23-2023 Mucus Clearing Device (QUAKE VIBRATORY PEP) renetta Indications: Bronchiectasis without complication (HCC) Provide 1 device 1 Each 0 02/23/2023 Suspended Comment on above: Provide 1 device naproxen 500 mg oral tablet (20 sources) Nonsteroidal Anti-inflammatory Drug Start: End: take 1 tablet by mouth every twelve hours Naproxen 500 mg tablet Discontinued 500 mg PO Q12H March 19, 2023 1:00am April 05, 2023 12:27pm Start: 10-09-2022 End: 10-11-2023 take 1 tablet by mouth twice daily as needed Naproxen 500 mg tablet Discontinued 500 mg PO TWICE DAILY NEEDED August 13, 2023 12:00am August 18, 2023 12:54pm Start: 09-16-2020 End: 10-06-2022 take 1 tablet by mouth twice daily as needed naproxen (NAPROSYN) 500 mg tablet Indications: 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 rheumatoid factor (HCC) , Low back pain with right-sided sciatica, unspecified back pain laterality, unspecified chronicity , Pseudogout Take 1 tablet by mouth twice daily as needed. Take with food 120 tablet 3 05/10/2021 01/17/2022 Discontinued Comment on above: Take 1 tablet by slime th twice daily as needed. Take with food oxyCODONE hydrochloride 5 mg oral tablet (18 sources) Opioid Agonist Start: 4 End: take 1 tablet by mouth every four hours as needed for pain Oxycodone 5 mg Tablet Discontinued 5 mg PO EVERY 4 HOURS NEEDED as needed for Pain Score 4-10 6 2 0 April 05, 2023 April 27, 2023 2:19pm Rheumatoid arthritis Rheumatoid arthritis, unspecified pantoprazole 40 mg delayed release oral tablet (20 sources) Proton Pump Inhibitor Start: 4 End: take 1 tablet by mouth twice daily Pantoprazole 40 mg tablet,delayed release (DR/EC) Discontinued 40 mg PO TWICE A DAY October 02, 2023 12:00am June 20, 2024 10:22am Start: 03-19-2023 End: 08-13-2023 take 1 tablet by mouth twice daily Pantoprazole 40 mg Tablet,Delayed Release (Dr/Ec) Discontinued 40 mg PO TWICE A DAY 0 0 April 05, 2023 1:00am August 13, 2023 10:48am GERD Start: 07-14-2020 End: 03-21-2024 take 1 tablet by mouth once daily Pantoprazole 40 mg tablet,delayed release (DR/EC) Discontinued 40 mg PO DAILY March 19, 2023 1:00am April 05, 2023 12:29pm Comment on above: Take 1 tablet by slime th once daily. predniSONE 20 mg oral tablet (20 sources) Start: 08-13-2023 End: 08-18-2023 take 1 tablet by mouth every twelve hours Prednisone 20 mg tablet Discontinued 20 mg PO Q12H August 13, 2023 12:00am August 18, 2023 12:54pm Start: 08-08-2023 End: 02-29-2024 predniSONE (DELTASONE) 20 mg tablet Indications: 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 rheumatoid factor (HCC) 1 tablet three times a day for 3 days, then 2 times a day for 3 days, the one daily for 3 days. 18 tablet 08/08/2023 02/29/2024 Discontinued (Course of therapy completed) Start: 07-10-2023 End: 07-19-2023 predniSONE (DELTASONE) 10 mg tablet Indications: Hip pain, acute, left Take 4 tabs daily for 3 days, then 2 tabs daily for 3 days, then 1 tab daily for 3 days with food. 21 tablet 0 07/10/2023 07/19/2023 Start: 08-07-2022 End: 08-16-2022 predniSONE (DELTASONE) 10 mg tablet Indications: Hip pain, acute, left Take 4 tabs daily for 3 days, then 2 tabs daily for 3 days, then 1 tab daily for 3 days with food. 21 tablet 0 08/07/2022 08/16/2022 Active Start: 12-31-2021 End: 01-09-2022 predniSONE (DELTASONE) 10 mg tablet Indications: Hip pain, acute, left Take 4 tabs daily for 3 days, then 2 tabs daily for 3 days, then 1 tab daily for 3 days with food. 21 tablet 0 12/31/2021 01/09/2022 Active Comment on above: Take 4 tabs daily fo r 3 days, then 2 tabs daily for 3 days, then 1 tab daily for 3 days with food. 125 ml sodium chloride 9 mg/ml prefilled syringe (20 sources) Start: 2 End: 5 sodium chloride 0.9 % (flush) 10 mL (BD POSIFLUSH) sucralfate 1000 mg oral tablet (3 sources) Aluminum Complex Start: 4 End: 4 take 1 tablet by mouth twice daily before mealtime Sucralfate 1 gram Tablet Discontinued 1 g PO TWICE DAILY BEFORE MEALS 60 30 0 August 18, 2023 12:00am October 01, 2023 9:20am Vitamin A-Vitamin C-Vit E-Min (Ocutabs) tablet (11 sources) Start: 4 End: 4 Vitamin A-Vitamin C-Vit E-Min (Ocutabs) tablet Discontinued 2 {tbl} PO DAILY March 26, 2023 1:00am April 27, 2023 2:17pm eye health Start: 03-26-2023 End: 04-27-2023 Vitamin A-Vitamin C-Vit E-Mi n (Ocutabs) tablet Discontinued 2 {tbl} PO DAILY March 26, 2023 1:00am April 27, 2023 2:17pm Start: 03-26-2023 End: 04-27-2023 take 2 tablets by mouth once daily Vitamin A-Vitamin C-Vit E-Min (Ocutabs) tablet Discontinued 2 TABLET PO DAILY March 26, 2023 1:00am April 27, 2023 2:17pm Start: 03-26-2023 take 2 tablets by mo uth once daily Vitamin A-Vitamin C-Vit E-Min (Ocutabs) tablet Active 2 TABLET PO DAILY March 26, 2023 12:00am Problems Active Problems Problem Classification Problem Date Documented Da te Episodic/Chronic Acquired foot deformities (5 sources) Hammer toe; Translations: [Other hammer toe(s) (acquired), left foot] Chronic Acute cerebrovascular disease (3 sources) Subdural hemorrhage; Translations: [Subdural hemorrhage] Onset: Chronic Acute posthemorrhagic anemia (3 sources) Acute posthemorrhagic anemia; Translations: [Acute posthemorrhagic anemia] 08-26-2023 Episodic Administrative/social admission (1 source) First encounter by subject; Translations: [Persons encountering health services in other specified circumstances] 03-21-2024 Episodic Cardiac and circulatory congenital anomalies (20 sources) Aortic valve stenosis; Translations: [Congenital stenosis of aortic valve] Onset: 9 04-26-2018 Chronic Chronic obstructive pulmonary disease and bronchiectasis (20 sources) Bronchiectasis; Translations: [Bronchiectasis, uncomplicated] Onset: 0 04-26-2019 Chronic Coagulation and hemorrhagic disorders (20 sources) Blood coagulation disorder; Translations: [Coagulation defect, unspecified] 03-19-2023 Chronic Congestive heart failure; nonhypertensive (20 sources) Chronic heart failure co-occurrent with normal ejection fraction; Translations: [Chronic diastolic (congestive) heart failure] Onset: 5 10-18-2023 Chronic Deficiency and other anemia (20 sources) Iron deficiency anemia due to blood loss; Translations: [Iron deficiency anemia secondary to blood loss (chronic)] Onset: 8 01-24-2018 Chronic Deficiency and other anemia (1 source) Anemia due to blood loss; Translations: [Iron deficiency anemia secondary to blood loss (chronic)] 10-11-2023 Chronic Diseases of white blood cells (1 source) Leukocytosis; Translations: [Elevated white blood cell count, unspecified] 04-01-2023 Chronic Disorders of lipid metabolism (1 source) Raised low density lipoprotein cholesterol; Translations: [Pure hypercholesterolemia, unspecified] Chronic Esophageal disorders (20 sources) Gastroesophageal reflux disease; Translations: [Gastro-esophageal reflux disease without esophagitis] Onset: 6 03-06-2005 Chronic Essential hypertension (20 sources) Essential hypertension; Translations: [Essential (primary) hypertension] Onset: 1 Resolved: 6 03-07-2015 Chronic Gastritis and duodenitis (20 sources) Duodenitis; Translations: [Duodenitis without bleeding] 04-05-2023 Episodic Gastroduodenal ulcer (except hemorrhage) (20 sources) Gastric ulcer; Translations: [Gastric ulcer, unspecified as acute or chronic, without hemorrhage or perforation] 04-05-2023 Chronic Gastrointestinal hemorrhage (1 source) Gastric ulcer with hemorrhage; Translations: [Chronic or unspecified gastric ulcer with hemorrhage] 07-17-2023 Chronic Gastrointestinal hemorrhage (5 sources) Gastrointestinal hemorrhage; Translations: [Gastrointestinal hemorrhage, unspecified] Onset: 4 10-11-2023 Episodic Gout and other crystal arthropathies (3 sources) Calcium pyrophosphate deposition disease; Translations: [Other chondrocalcinosis, unspecified site] Chronic Heart valve disorders (20 sources) Non-rheumatic mitral valve stenosis; Translations: [Nonrheumatic mitral (valve) stenosis] Onset: 4 08-27-2023 Chronic Immunizations and screening for infectious disease (1 source) Vaccination needed; Translations: [Encounter for immunization] Episodic Malaise and fatigue (20 sources) Asthenia; Translations: [Weakness] 03-26-2023 Episodic Menopausal disorders (20 sources) Atrophic vaginitis; Translations: [Postmenopausal atrophic vaginitis] Onset: 4 03-06-2013 Chronic Noninfectious gastroenteritis (20 sources) Colitis; Translations: [Noninfective gastroenteritis and colitis, unspecified] 03-19-2023 Episodic Osteoporosis (1 source) Senile osteoporosis; 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 without current pathological fracture] 11-09-2022 Chronic Other aftercare (1 source) Long-term current use of drug therapy; Translations: [Other buttermaker continuous churn (current) drug therapy] 08-22-2023 Episodic Other aftercare (2 sources) Long-term current use of antibiotic; Translations: [snf (current) use of antibiotics] 12-18-2023 Episodic Other connective tissue disease (1 source) Pain of right lower leg; Translations: [Pain in right lower leg] 07-10-2023 Episodic Other gastrointestinal disorders (20 sources) Perforation of intestine; Translations: [Perforation of intestine (nontraumatic)] 03-19-2023 Episodic Other gastrointestinal disorders (2 sources) History of gastrointestinal bleed; Translations: [Personal history of other diseases of the digestive system] 08-28-2023 Episodic Other gastrointestinal disorders (1 source) Personal history of other diseases of the digestive system; Translations: [History of GI bleed] Onset: Episodic Other infections; including parasitic (1 source) Personal history of other infectious and parasitic diseases; Translations: [History of COVID-19] Episodic Other liver diseases (1 source) Alkaline phosphatase raised; Translations: [Abnormal levels of other serum enzymes] 04-01-2023 Episodic Other lower respiratory disease (3 sources) Cough; Translations: [Cough] Episodic Other lower respiratory disease (4 sources) Multiple nodules of lung; Translations: [Other nonspecific abnormal finding of lung field] Episodic Other lower respiratory disease (20 sources) History of chronic obstructive airway disease; Translations: [Personal history of other diseases of the respiratory system] 03-28-2023 Episodic Other lower respiratory disease (1 source) Personal history of other diseases of the respiratory system; Translations: [History of COPD] Onset: 5 Episodic Other nervous system disorders (20 sources) Meralgia paresthetica; Translations: [Meralgia paresthetica, unspecified lower limb] Onset: 6 03-06-2005 Chronic Other non-traumatic joint disorders (20 sources) Arthropathy; Translations: [Arthropathy, unspecified] Onset: 7 12-05-2006 Chronic Other non-traumatic joint disorders (2 sources) Effusion, right wrist; Translations: [Effusion, right wrist] Onset: 9 Episodic Other non-traumatic joint disorders (3 sources) Pain in right knee; Translations: [Pain in joint, lower leg] 07-10-2023 Episodic Other nutritional; endocrine; and metabolic disorders (1 source) Hypoalbuminemia; Translations: [Other disorders of plasma-protein metabolism, not elsewhere classified] 04-01-2023 Chronic Other nutritional; endocrine; and metabolic disorders (19 sources) Adult failure to thrive syndrome; Translations: [Adult failure to thrive] 03-31-2023 Episodic Other nutritional; endocrine; and metabolic disorders (2 sources) Adult failure to thrive; Translations: [Adult failure to thrive] 03-31-2023 Episodic Other nutritional; endocrine; and metabolic disorders (3 sources) Failure to thrive 05-08-2023 Episodic Other skin disorders (1 source) Dystrophia unguium; Translations: [Nail dystrophy] Episodic Other upper respiratory disease (3 sources) Bronchospasm; Translations: [Acute bronchospasm] Episodic Other upper respiratory infections (1 source) Chronic sinusitis; Translations: [Chronic sinusitis, unspecified] Chronic Phlebitis; thrombophlebitis and thromboembolism (20 sources) History of recurrent deep vein thrombosis; Translations: [Personal history of other venous thrombosis and embolism] Onset: 5 Resolved: 9 10-29-2016 Episodic Residual codes; unclassified (3 sources) Confusional state; Translations: [Disorientation, unspecified] 03-26-2023 Episodic Residual codes; unclassified (3 sources) Disorientation, unspecified; Translations: [Unspecified psychosis] 03-26-2023 Episodic Residual codes; unclassified (20 sources) Peripheral edema; Translations: [Localized edema] 03-28-2023 Episodic Residual codes; unclassified (20 sources) Edema of lower extremity; Translations: [Localized edema] 03-31-2023 Episodic Residual codes; unclassified (20 sources) Edema; Translations: [Edema, unspecified] 04-05-2023 Episodic Residual codes; unclassified (14 sources) Edema, unspecified; Translations: [Edema] 04-05-2023 Episodic Residual codes; unclassified (1 source) Bilateral lower limb edema; Translations: [Localized edema] 09-24-2023 Episodic Residual codes; unclassified (1 source) Pain, unspecified; Translations: [Pain] Onset: Episodic Retinal detachments; defects; vascular occlusion; and retinopathy (1 source) Nonexudative age-related macular degeneration; Translations: [Nonexudative age-related macular degeneration, bilateral, early dry stage] Chronic Rheumatoid arthritis and related disease (20 sources) Rheumatoid arthritis of multiple joints; Translations: [Rheumatoid arthritis with rheumatoid factor of multiple sites without organ or systems involvement] Onset: 0 Resolved: 6 06-06-2016 Chronic Skin and subcutaneous tissue infections (20 sources) Infection of toe ; Translations: [Local infection of the skin and subcutaneous tissue, unspecified] Episodic Spondylosis; intervertebral disc disorders; other back problems (20 sources) Herniation of nucleus pulposus of lumbar intervertebral disc; Translations: [Other intervertebral disc displacement, lumbar region] Onset: 2 03-20-2011 Chronic Sprains and strains (1 source) Sprain of unspecified ligament of right ankle, initial encounter; Translations: [Sprain of unspecified ligament of right ankle, initial encounter] Onset: 5 Episodic Unclassified (20 sources) High Risk Chronic Disease Home Monitoring Problem Onset: 3 07-05-2022 Viral infection (1 source) COVID-19; Translations: [COVID-19] Onset: 4 Past or Other Problems Problem Classification Problem Date Documented Da te Episodic/Chronic Allergic reactions (20 sources) Allergy to penicillin; Translations: [Allergy status to penicillin] Onset: 4 03-23-2023 Episodic Aortic and peripheral arterial embolism or thrombosis (20 sources) Vascular disorder; Translations: [Embolism and thrombosis of unspecified artery] Onset: 7 Resolved: 2 01-02-2017 Chronic Bacterial infection; unspecified site (20 sources) Disease due to Gram-negative bacteria; Translations: [Bacterial infection, unspecified] Onset: 4 03-20-2023 Episodic Chronic ulcer of skin (20 sources) Ulcer of toe; Translations: [Non-pressure chronic ulcer of other part of left foot limited to breakdown of skin] Onset: 3 Resolved: 5 Chronic Deficiency and other anemia (20 sources) Anemia; Translations: [Anemia, unspecified] Onset: 9 Resolved: 9 04-01-2023 Episodic Deficiency and other anemia (20 sources) Anemia, unspecified; Translations: [Anemia, unspecified] Onset: 4 04-05-2023 Episodic Gastroduodenal ulcer (except hemorrhage) (1 source) Acute gastric ulcer without hemorrhage or perforation; Translations: [Acute gastric ulcer without hemorrhage or perforation] Onset: 4 Episodic Heart valve disorders (20 sources) Heart murmur; Translations: [Cardiac murmur, unspecified] Onset: 9 Resolved: 9 08-05-2018 Episodic Mycoses (20 sources) Histoplasmosis; Translations: [Histoplasmosis, unspecified] Onset: 9 03-03-2018 Episodic Other acquired deformities (20 sources) Lumbar spondylolisthesis; Translations: [Spondylolisthesis, lumbar region] Onset: 8 07-30-2017 Episodic Other aftercare (20 sources) Long-term current use of anticoagulant; Translations: [parts counterman (current) use of 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] Onset: 0 12-10-2014 Episodic Other aftercare (1 source) parts counterman (current) use of 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; Translations: [snf current use of anticoagulant therapy] Onset: 5 Episodic Other aftercare (1 source) Encounter for therapeutic drug level monitoring; Translations: [Encounter for therapeutic drug monitoring] Onset: 4 Episodic Other aftercare (1 source) Other fpc (current) drug therapy; Translations: [Encounter for long-term current use of medication] Onset: 4 Episodic Other aftercare (1 source) snf (current) use of antibiotics; Translations: [Encounter for long-term (current) use of antibiotics] Onset: 4 Episodic Other connective tissue disease (20 sources) Enthesopathy of hip region; Translations: [Other specified enthesopathies of unspecified lower limb, excluding foot] Onset: 9 Resolved: 2 01-04-2009 Episodic Other connective tissue disease (20 sources) Ganglion cyst; Translations: [Ganglion, unspecified site] Onset: 5 08-17-2014 Episodic Other gastrointestinal disorders (20 sources) Pneumatosis cystoides intestinalis; Translations: [Other specified diseases of intestine] Onset: 4 03-19-2023 Episodic Other gastrointestinal disorders (1 source) Perforation of intestine (nontraumatic); Translations: [Bowel perforation (HCC)] Onset: 4 Episodic Other liver diseases (20 sources) Elevated liver enzymes level; Translations: [Abnormal levels of other serum enzymes] Onset: 0 04-01-2009 Episodic Other lower respiratory disease (20 sources) Nodule of lung; Translations: [Solitary pulmonary nodule] Onset: 0 03-11-2019 Episodic Other lower respiratory disease (20 sources) Hemoptysis; Translations: [Hemoptysis] Onset: 4 03-23-2023 Episodic Other non-traumatic joint disorders (20 sources) Pain in right hip joint; Translations: [Pain in right hip] Onset: 7 05-05-2016 Episodic Other non-traumatic joint disorders (20 sources) Hip pain; Translations: [Pain in left hip] Onset: 7 10-27-2022 Episodic Other non-traumatic joint disorders (20 sources) Pain in lower limb; Translations: [Pain in unspecified knee] Onset: 7 Resolved: 9 03-02-2018 Episodic Other screening for suspected conditions (not mental disorders or infectious disease) (20 sources) Patient encounter status; Translations: [Encounter for screening mammogram for malignant neoplasm of breast] Onset: 4 Episodic Other upper respiratory disease (20 sources) Voice finding; Translations: [Other voice and resonance disorders] Onset: 6 03-06-2005 Episodic Nelda-; endo-; and myocarditis; cardiomyopathy (except that caused by tuberculosis or sexually transmitted disease) (20 sources) Pericardial effusion - noninflammatory; Translations: [Pericardial effusion (noninflammatory)] Onset: 4 08-27-2023 Episodic Residual codes; unclassified (20 sources) History of immunosuppressive therapy; Translations: [Personal history of immunosupression therapy] Onset: 4 03-23-2023 Episodic Residual codes; unclassified (4 sources) Localized edema; Translations: [Edema] Onset: 4 03-31-2023 Episodic Screening and history of mental health and substance abuse codes (2 sources) Encounter for screening for depression; Translations: [Encounter for screening examination for other mental health and behavioral disorders] Onset: 5 Episodic Spondylosis; intervertebral disc disorders; other back problems (20 sources) Lumbago co-occurrent with right-side sciatica; Translations: [Lumbago with sciatica, right side] Onset: 2 Resolved: 5 05-05-2016 Episodic Unclassified (20 sources) Failure to thrive; Translations: [Failure to thrive] 04-05-2023 Viral infection (20 sources) Verruca vulgaris; Translations: [Other viral warts] Onset: 4 Episodic Results Test Name Value Interpretation Reference Range Facility No Panel InformationOrdered By: Santos Guillory on 07-24-2024 [facility] [address] [place] [address] CR - Individual Treatment Plan MR#: [id number] Acct: [id number] Name: HAYDEE BUSTAMANTE Rep #:[id number] : 1945 79 From: Santos Rubalcava BS, RVT PCP: Dr. Claudine Durán MD DOS: 06/13 Exercise - Initial Assessment Physician Prescribed Exercise Modalities: Treadmill, SciFit Stepper and SciFit Pro-II Ergometer Nutrition - Initial Assessment Weight Mgt (Other Care) Height: 5 ft 3 in Weight:: 133 lb BMI: 23.6 Core - Initial Assessment Hypertension Resting Blood Pressure:: 132/70 [place] Hypertension Guidelines Psychosocial - Initial Assess Target Goals Target Goals Referral to Behavioral Health PS - Interventions: Yes: Attend Stress Management Classes Patient Health Questionnaire PHQ-9 Screening 60-Day Re-eval Assessment: 1. Little interest or pleasure in doing things: Not at all 2. Feeling down, depressed, or hopeless: Not at all 3. Trouble falling or staying asleep, or sleeping too much: Several days 4. Feeling tired or having little energy: Not at all 5. Poor appetite or overeating: Not at all 6. Feeling bad about yourself -- or that you are a failure or have let yourself or your family down: Not at all 7. Trouble concentrating on things, such as reading the newspaper or watching television: Not at all 8. Moving or speaking so slowly that other people could have noticed. Or the opposite - being so fidgety or restless that you have been moving around a lot more than usual: Not at all 9. Thoughts that you would be better off , or of hurting yourself in some way: Not at all How difficult have these problems made it for you to do your work, take care of things at home, or get along with other people?: Not difficult at all Total Score: 1 Self-Efficacy 6-Item Scale 60-Day Re-eval Assessment: We would like to know how confident you are in doing certain activities. Please select your confidence level for: Fatigue Select Number: 5 Physical Discomfort or Pain Select Number: 10 Emotional Distress Select Number: 10 Other Symptoms or Health Problems Select Number: 5 Different Tasks and Activities Select Number: 10 Medication Select Number: 8 Total Score:: 8 Nutrition Survey Nutrition Survey Instructions Scoring Instructions Exercise - 30-day Assessment Physician Prescribed Exercise Modalities: Treadmill, SciFit Stepper and SciFit Pro-II Ergometer Exercise - 60-day Assessment Visit Date of Eval: 07/24/24 Session #:: 22 Physician Prescribed Exercise Modalities: Treadmill, SciFit Stepper and SciFit Pro-II Ergometer Frequency: 3x/week for 12 weeks [36 sessions] Intensity: 60-80% of age predicted maximum heart rate reserve Duration: 30 - 45 minutes Current METSs:: 6.3 Target Heart Rate:: 86-108 Current RPE:: 10-12 Maximum Excercise HR:: 107 Resting Blood Pressure: 108/70 Maximum Exercise Blood Pressure: 132/70 EKG Type: NSR to ST w/ 1DAVB BBB and rare PAC, PVC Current Physical Activity or Exercising minutes: 30-45 Outcomes & Goals Goals:: Verbalizes understanding of THR, RPE & goal METS by session 6, Documentsin home exercise log/reports 30 min aerobic 5 day/wk by DC, Demonstrates accurate pulse taking by DC and Other additional outcome/goals: see below Intervention & Plan Exercise Program Goals: Instruct on personal THR & RPE, Instruct on MET level & personal MET goal, Show patient to take own pulse /validate performance until accurate, Instruct on home exercise and Other additional plan/int Physical Activity Home Exercise Physical Activity - Home Exercise: Safe Exercise, Warm-up, Self-monitoring, Cool-Down, Home Exercise > 30 min Daily and Sitting Time <3 hours/daily Outcomes & Goals Outcomes/Goals: Demonstrates correct Warm-up/exercise Cool-Down (S3) if = 2.5 METs, Verbalizes symptoms of exercise intolerance by Session 3 (S3), Demonstratesafe equipment use (S3) & follows exercise prescrition (6) and Other: See below Intervention & Plan Plan/Intervention: Instruct warm-up & cool-down if exercising at > 2 METs, Instruct on symptoms of exercise intolerance & actions to take, Instruct & monitor on saf, Assess intial functional capacity & safety risk and Other See below 30-day Reassessments 30 day Reassessments:: Progressing Reassessment Notes & Comments:: Proper warm up and cool down demonstrated and explained to pt. Pt is able to return demonstration. Exercise - 90-day Assessment Physician Prescribed Exercise Modalities: Treadmill, SciFit Stepper and SciFit Pro-II Ergometer Exercise - Final/Discharge Physician Prescribed Exercise Modalities: Treadmill, SciFit Stepper and SciFit Pro-II Ergometer Nutrition - 30-Day Assessment Weight Mgt (Other Care) Height: 5 ft 3 in Weight:: 133 lb BMI: 23.6 Nutrition - 60-Day Assessment Program Goals Nutrition Program Goals Patient has diagnosis of Hyperlipidemia (ICD E78)?: No Visit Date of Eval: 07/24/24 Session #:: 22 Cholesterol/Lipids (Other Core Measures) Determine presence & major risk factors that modify LDL go (more content not included)... [facility] No Panel InformationOrdered By: Santos Guillory on 06-27-2024 [facility] [address] [place] [address] CR - Individual Treatment Plan MR#: [id number] Acct: [id number] Name: HAYDEE BUSTAMANTE DIONTE Rep #:[id number] : 1945 79 From: Santos Rubalcava BS, RVT PCP: Dr. Clauidne Durán MD DOS: 11/13 Exercise - Initial Assessment Visit Session #:: 12 Physician Prescribed Exercise Modalities: Treadmill, SciFit Stepper and SciFit Pro-II Ergometer Nutrition - Initial Assessment Weight Mgt (Other Care) Height: 5 ft 3 in Weight:: 129 lb 8 oz BMI: 22.9 Psychosocial - Initial Assess Target Goals Target Goals Referral to Behavioral Health PS - Interventions: Yes: Attend Stress Management Classes Patient Health Questionnaire PHQ-9 Screening 30-Day Re-eval Assessment: 1. Little interest or pleasure in doing things: Not at all 2. Feeling down, depressed, or hopeless: Not at all 3. Trouble falling or staying asleep, or sleeping too much: Several days 4. Feeling tired or having little energy: Not at all 5. Poor appetite or overeating: Not at all 6. Feeling bad about yourself -- or that you are a failure or have let yourself or your family down: Not at all 7. Trouble concentrating on things, such as reading the newspaper or watching television: Not at all 8. Moving or speaking so slowly that other people could have noticed. Or the opposite - being so fidgety or restless that you have been moving around a lot more than usual: Not at all 9. Thoughts that you would be better off , or of hurting yourself in some way: Not at all How difficult have these problems made it for you to do your work, take care of things at home, or get along with other people?: Not difficult at all Total Score: 1 Self-Efficacy 6-Item Scale 30-Day Re-eval Assessment: We would like to know how confident you are in doing certain activities. Please select your confidence level for: Fatigue Select Number: 5 Physical Discomfort or Pain Select Number: 10 Emotional Distress Select Number: 10 Other Symptoms or Health Problems Select Number: 5 Different Tasks and Activities Select Number: 10 Medication Select Number: 8 Total Score:: 8 Nutrition Survey Nutrition Survey Instructions Scoring Instructions Exercise - 30-day Assessment Visit Date of Eval: 06/27/24 Session #:: 12 Physician Prescribed Exercise Modalities: Treadmill, SciFit Stepper and SciFit Pro-II Ergometer Frequency: 3x/week for 12 weeks [36 sessions] Intensity: 60-80% of age predicted maximum heart rate reserve Duration: 30 - 45 minutes Current METSs:: 4.1 Target Heart Rate:: 86-108 Current RPE:: 10-12 Maximum Excercise HR:: 108 Resting Blood Pressure: 142/70 Maximum Exercise Blood Pressure: 132/60 EKG Type: NSR to ST with rare pac, pvc Outcomes & Goals Goals:: Verbalizes understanding of THR, RPE & goal METS by session 6, Documentsin home exercise log/reports 30 min aerobic 5 day/wk by DC, Demonstrates accurate pulse taking by DC and Other additional outcome/goals: see below Intervention & Plan Exercise Program Goals: Instruct on personal THR & RPE, Instruct on MET level & personal MET goal, Show patient to take own pulse /validate performance until accurate, Instruct on home exercise and Other additional plan/int Physical Activity Home Exercise Physical Activity - Home Exercise: Safe Exercise, Warm-up, Self-monitoring, Cool-Down, Home Exercise > 30 min Daily and Sitting Time <3 hours/daily Outcomes & Goals Outcomes/Goals: Demonstrates correct Warm-up/exercise Cool-Down (S3) if = 2.5 METs, Verbalizes symptoms of exercise intolerance by Session 3 (S3), Demonstratesafe equipment use (S3) & follows exercise prescrition (6) and Other: See below Intervention & Plan Plan/Intervention: Instruct warm-up & cool-down if exercising at > 2 METs, Instruct on symptoms of exercise intolerance & actions to take, Instruct & monitor on saf, Assess intial functional capacity & safety risk and Other See below 30-day Reassessments 30 day Reassessments:: Progressing Reassessment Notes & Comments:: RPE explained to pt. Pt demonstrates understanding in her daily sessions. Exercise - 60-day Assessment Physician Prescribed Exercise Modalities: Treadmill, SciFit Stepper and SciFit Pro-II Ergometer Exercise - 90-day Assessment Physician Prescribed Exercise Modalities: Treadmill, SciFit Stepper and SciFit Pro-II Ergometer Exercise - Final/Discharge Physician Prescribed Exercise Modalities: Treadmill, SciFit Stepper and SciFit Pro-II Ergometer Nutrition - 30-Day Assessment Program Goals Nutrition Program Goals Patient has diagnosis of Hyperlipidemia (ICD E78)?: No Visit Date of Eval: 06/27/24 Session #:: 12 Cholesterol/Lipids (Other Core Measures) Determine presence & major risk factors that modify LDL goal: Hypertension or hypertensive medication, Low HDL cholesterol <40 mg/dL*, Family history of premature CHD in Male < 55 years: female <65 yearsFa and Age men > 45 years; women >/= 55 years Outcomes/Goals: Pt IDs own risk factors & lifestyle modifications by Session 10,Verbalizes symptom (more content not included)... [facility] 12 Lead EKG performed by [facility] on 06-20-2024 12 Lead EKG performed by [facility] [address] [place] [address] 12 Lead EKG performed by [facility] 06/20/24 9777 MR#: [id number] Acct: [id number] Name: HAYDEE BUSTAMANTE Rep #: [id number] : 1945 79 From: Diaz Puckett MD Attending Dr: Dr. Diaz Puckett MD Status: THOMPSON Ordering Dr: Diaz Puckett MD Date: 06/20/24 [place] [facility] [place] Sex: F C Admitted: BMS/12 Lead EKG performed by [facility] ECG Report Interpretation S inus Rhythm - occasional PAC # PACs = 1.-Combined atrial enlargement. Low voltage -possible pulmonary disease. ABNORMAL Electronically signed on 06/20/2024 at 12:[address] Diaz Coley Software Version [id number] 06/20/24 1229 Date Diaz Puckett MD CC: Dr. Claudine Durán MD Date Dictated: 06/20/24 154 Date Transcribed: 06/20/241546 Jack Machine Operator: Signed Normal [facility] Cardiology Visit Reporton Cardiology Visit Report [facility] [address] [place] [address] OFFICE VISIT Date of Service: 06/20/24 MR#: [id number] Acct: [id number] Name: HAYDEE BUSTAMANTE Rep #: [id number] : 1945 Provider: Dr. Diaz dickson MD Age/Sex: 79/F Location: [facility] [place] Status: Signed HPI HPI History of Present Illness Details: Patient is a 79-year-old white female comes in today for new patient visit. Patient is routinely cared for in the [facility] system where she had her TAVR April 2024. Patient carries a history of critical aortic stenosis status post TAVR April [address] [facility] follow-up echo showed a peak gradient of 12 and a mean of 6 through the bioprosthetic valve. Patient also has a history of moderate mitral stenosis which showed no change on the echo in April 2024 compared to December 2023. The mitral valve peak gradient was 16 mean was 8. Patient also carries a history of remote GI bleed back in July 2023 she has rheumatoid and osteoarthritis she also carries a history of COPD and a history of disseminated histoplasmosis has been treated twice by Dr. Geno Hart. Patient reports she has been doing fairly well in her home environment she has markedly recovered from her TAVR and had been in outpatient rehab here at [facility] which she is tolerating without incident. The patient was not aware of her SBE prophylaxis needs given her bioprosthetic valve. She is allergic to penicillin but has not ever taken clindamycin to her knowledge. The patient is scheduled to follow-up with the [facility] in the next few weeks. She is wishing to transfer her care primarily to the [facility] once she is released from the [facility] in their TAVR program. ECG in office today shows normal sinus rhythm at 83 bpm occasional PACs and biatrial enlargement. Low voltage was also noted. Intake Vital Signs 05/28/24 08:20 06/20/24 10:09 Height 5 ft 3 in 5 ft 3 in Weight: 129 lb BMI 22.8 BP 125/74 H Blood Pressure Location Lt brachial Position Sitting Respiration 18 Pulse 85 Pulse Source Monitor Pulse Oximetry (%) 98 Oxygen Delivery Method room air Intake Visit Reasons: AORTICE VALVE STENOSIS (SWANSON) Bookbinding Machine Operator Required: No Accompanied by: Self Is patient in pain?: No Allergies Penicillins Allergy (Severe, Verified 06/20/24 10:10) Anaphylaxis Medications ???Medication ???Instructions ???Recorded ???Confirmed ???Type multivitamin (Daily Multi-Vitamin 1 tab PO DAILY supplement 4 06/20/24 History tablet) vitamins A,C,J-hexa-ehuyjw 2,148 2 tab PO BID eye health 03/19/23 0 06/20/24 History mcg-113 mg-45 mg-17.4 mg tablet (PreserVision AREDS) gabapentin 300 mg capsule 300 mg PO Q12 nerve pain #0 caps 0 04/05/23 06/20/24 Rx potassium chloride 20 mEq 20 meq PO BIDCM #0 tabs 04/27/23 0 06/20/24 Rx tablet,extended release(part/cryst) fluticasone propionate 50 1 spray intranasal DAILY 08/13/23 06/20/24 History mcg/actuation nasal spray,suspension furosemide 20 mg tablet 20 mg PO DAILY PRN edema 08/13/23 06/20/24 History tiotropium bromide 2.5 2 puff inhalation DAILY 08/13/23 0 06/20/24 History mcg/actuation mist for inhalation (Spiriva Respimat) diclofenac sodium 1 % topical gel 4 g topical BID PRN PRN knee pain 08/18/23 06/20/24 Rx (Voltaren Arthritis Pain) #100 grams warfarin 5 mg tablet See Rx Instructions .Route 4 06/20/24 Rx Held on 10/01/23. .COMPLEX #30 tabs Instructions: ON HOLD FOR COLONOSCOPY omega 7-ork-pzm-fish oil 1,200 mg 1 cap PO DAILY 10/01/23 06/20/24 History (144 mg-216 mg) capsule (Fish Oil) albuterol sulfate 90 mcg/actuation 2 puff inhalation Q4H PRN PRN 06/20/24 History aerosol inhaler cholecalciferol (vitamin D3) 25 25 mcg PO QDAY 06/13/24 06/20/24 H istory mcg (1,000 unit) capsule fluticasone 250 mcg-salmeterol 50 1 inh inhalation BID 06/13/2404/15 History mcg/dose blistr powdr for inhalation (Wixela Inhub) folic acid 0.8 mg capsule 0.8 mg PO QDAY 06/13/24 06/20/24 H istory methotrexate sodium 2.5 mg tablet 10 mg PO QWEEK 06/13/24 06/20/24 History spironolactone 25 mg tablet 25 mg PO DAILY 06/13/24 History sulfasalazine 500 mg 1 g PO BID 06/13/24 06/20/24 Histo ry tablet,delayed release acetaminophen 500 mg tablet 1,000 mg PO TID Pain Score 1-10 History clindamycin HCl 300 mg capsule 600 mg (2 x 300 mg) PO ONCE #2 cap s 06/20/24 06/20/24 Rx ferrous sulfate 325 mg (65 mg 325 mg PO QDAY 06/20/24 06/20/24 H istory iron) tablet Ejection fraction %: 62 Have you fallen in the past year?: Yes PFSH Medical History Hypertension (more content not included)... Normal [facility] CR - History AND Physicalon 05-28-2024 CR - History & Physical [facility] Cardiac Rehab [address] [place] [address] CR - History Physical MR#: [id number] Acct: [id number] Name: HAYDEE BUSTAMANTE Rep #: [id number] : 1945 78 From: Santos Rubalcava BS, RVT PCP: Dr. Claudine Durán MD DOS: 05/28/24 CR - History Physical General Arrival date:: 05/28/24 Arrival time:: 08:05 Date of Referral:: 05/22/24 Date of CR Evaluation:: 05/28/24 Referring Physician: Dr. Saeed Primary Diagnosis: s/p TAVR History of Present Cardiac Event Onset Date Heart valve replacement or repair:: Yes (Onset 05/02/24) Medications Ambulatory Orders ???Medication ???Instructions ???Recorded multivitamin (Daily Multi-Vitamin 1 tab PO DAILY supplement 4 tablet) vitamins A,C,C-icor-nspxug 2,148 2 tab PO BID eye health 03/19/23 mcg-113 mg-45 mg-17.4 mg tablet (PreserVision AREDS) gabapentin 300 mg capsule 300 mg PO Q12 nerve pain #0 caps 0 04/05/23 acetaminophen 500 mg tablet 1,000 mg (2 x 500 mg) PO Q6H PRN 0 04/27/23 PRN Pain Score 1-10 #0 tabs potassium chloride 20 mEq 20 meq PO BIDCM #0 tabs 04/27/23 tablet,extended release(part/cryst) fluticasone 250 mcg-salmeterol 50 1 ea inhalation BID 08/13/23 mcg/dose blistr powdr for inhalation fluticasone propionate 50 1 spray intranasal DAILY 08/13/23 mcg/actuation nasal spray,suspension furosemide 20 mg tablet 20 mg PO DAILY PRN edema 08/13/23 itraconazole 10 mg/mL oral solution 200 mg PO BID 08/13/23 tiotropium bromide 2.5 2 puff inhalation DAILY 08/13/23 mcg/actuation mist for inhalation (Spiriva Respimat) diclofenac sodium 1 % topical gel 4 g topical BID PRN PRN knee pain 08/18/23 (Voltaren Arthritis Pain) #100 grams warfarin 5 mg tablet See Rx Instructions .Route 4 Held on 10/01/23. .COMPLEX #30 tabs Instructions: ON HOLD FOR COLONOSCOPY omega 0-fgu-kav-fish oil 1,200 mg 1 cap PO DAILY 10/01/23 (144 mg-216 mg) capsule (Fish Oil) pantoprazole 40 mg tablet,delayed 40 mg PO BID 10/02/23 release Allergies Allergies Penicillins Allergy (Severe, Verified 10/02/23 11:42) Anaphylaxis Sleep Disorder Evaluation Hx of Sleep Apnea: No Do you snore loudly (louder than talking or can be heard through closed doors)?: No Do you often feel tired/ fatigued/ sleepy during daytime?: No Has anyone observed you stop breathing during sleep?: No History of Hypertension (for STOP score): Yes STOP Results: Negative Advanced Directives Advanced Directives Do you have a Healthcare Power of Needlemaker?: Yes Living Will: Yes Advance Directives Information Provided: Yes Advance Directives on File: Yes DNR Order?:: No Past Medical History Covid-19 Screening Physicial Symptoms Other Clinical Concerns Exposure Risk Pertinent Comorbidities 65 years or older:: Yes Has a serious heart condition:: Yes Past Medical Illness Medical History Wears glasses Walker as ambulation aid Ambulates with cane Arthritis Excessive bleeding Easy bruising History of ulceration History of GI bleed Gastric reflux Emphysema, unspecified Cardiology follow-up encounter History of edema Severe aortic stenosis ABLA (acute blood loss anemia) Thrombocytopenia Adult failure to thrive Leg edema Rheumatoid arthritis COPD (chronic obstructive pulmonary disease) Former smoker DVT (deep venous thrombosis) Pulmonary embolism Colitis COVID-19 Histoplasmosis Past Surgical History Surgical History History of back surgery History of esophagogastroduodenoscopy (EGD) History of tonsillectomy History of embolic filter insertion Hx of foot surgery Social History Smoking History Smoking Status: Former smoker Years Smokin Packs Smoked per Day: 1 (stopped in the late ) Alcohol Use Alcohol Usage: No Substance Abuse Hx Substance Use: No Occupation Occupation (List type of work in comments):: Retired Social Environment Status Marital Status: Current Living Arrangements Living Environment:: Alone Children How many children do you have?: 0 Safety Do you feel safe in your surroundings?: Yes Assistance Do you need any assistance at home?: no Review of Systems Review of Systems Hints Review of Present Symptoms: Reports Fatigue, Appetite - Normal and Appetite - Special Diet; Denies Shortness of Breath at Rest, Shortness of Breath with Exertion, PVD, Operative Discomfort, Angina, Wound Healing, Dizziness/Lightheadedness, Heart Arrhythmia/Irregularities, Sleep - Normal or Sexual Changes Pain Is Patient Pain Free?: No Pain Location: other (arthritis pain ) Risk Factor Assessment Chief Complaint Chief Complaint: s/p TAVR Vital Signs Pulse Ox: 98 Blood Pressure: 100/54 P (more content not included)... Normal [facility] Cardiac rehabilitation evalu ation reportOrdered By: Santos Guillory on 05-28-2024 Study report [facility] Cardiac Rehab [address] [place] [address] CR - History & Physical MR#: [id number] Acct: [id number] Name: HAYDEE BUSTAMANTE Rep #:[id number] : 1945 78 From: Santos Rubalcava BS, RVT PCP: Dr. Claudine Durán MD DOS: 11/13 CR - History & Physical General Arrival date:: 05/28/24 Arrival time:: 08:05 Date of Referral:: 05/22/24 Date of CR Evaluation:: 05/28/24 Referring Physician: Dr. Saeed Primary Diagnosis: s/p TAVR History of Present Cardiac Event Onset Date Heart valve replacement or repair:: Yes (Onset 05/02/24) Medications Ambulatory Orders ?Medication ?Instructions ?Recorded multivitamin (Daily Multi-Vitamin 1 tab PO DAILY suppl ement 03/19/23 tablet) vitamins A,C,O-kdbd-iybxgf 2,148 2 tab PO BID eye heal th 03/19/23 mcg-113 mg-45 mg-17.4 mg tablet (PreserVision AREDS) gabapentin 300 mg capsule 300 mg PO Q12 nerve pain #0 caps 04/05/23 acetaminophen 500 mg tablet 1,000 mg (2 x 500 mg) PO Q 6H PRN 04/27/23 PRN Pain Score 1-10 #0 tabs potassium chloride 20 mEq 20 meq PO BIDCM #0 tabs 03/0 10/12 tablet,extended release(part/cryst) fluticasone 250 mcg-salmeterol 50 1 ea inhalation BID 08/13/23 mcg/dose blistr powdr for inhalation fluticasone propionate 50 1 spray intranasal DAILY mcg/actuation nasal spray,suspension furosemide 20 mg tablet 20 mg PO DAILY PRN edema itraconazole 10 mg/mL oral solution 200 mg PO BID 07/21 06/12 tiotropium bromide 2.5 2 puff inhalation DAILY 07/21 06/12 mcg/actuation mist for inhalation (Spiriva Respimat) diclofenac sodium 1 % topical gel 4 g topical BID PRN PRN knee pain 08/18/23 (Voltaren Arthritis Pain) #100 grams warfarin 5 mg tablet See Rx Instructions .Route 0 08/18/23 Held on 10/01/23. .COMPLEX #30 tabs Instructions: ON HOLD FOR COLONOSCOPY omega 1-atx-pcl-fish oil 1,200 mg 1 cap PO DAILY 09/30 (144 mg-216 mg) capsule (Fish Oil) pantoprazole 40 mg tablet,delayed 40 mg PO BID 4 release Allergies Allergies Penicillins Allergy (Severe, Verified 10/02/23 11:42) Anaphylaxis Sleep Disorder Evaluation Hx of Sleep Apnea: No Do you snore loudly (louder than talking or can be heard through closed doors)?:No Do you often feel tired/ fatigued/ sleepy during daytime?: No Has anyone observed you stop breathing during sleep?: No History of Hypertension (for STOP score): Yes STOP Results: Negative Advanced Directives Advanced Directives Do you have a Healthcare Power of Needlemaker?: Yes Living Will: Yes Advance Directives Information Provided: Yes Advance Directives on File: Yes DNR Order?:: No Past Medical History Covid-19 Screening Physicial Symptoms Other Clinical Concerns Exposure Risk Pertinent Comorbidities 65 years or older:: Yes Has a serious heart condition:: Yes Past Medical Illness Medical History Wears glasses Walker as ambulation aid Ambulates with cane Arthritis Excessive bleeding Easy bruising History of ulceration History of GI bleed Gastric reflux Emphysema, unspecified Cardiology follow-up encounter History of edema Severe aortic stenosis ABLA (acute blood loss anemia) Thrombocytopenia Adult failure to thrive Leg edema Rheumatoid arthritis COPD (chronic obstructive pulmonary disease) Former smoker DVT (deep venous thrombosis) Pulmonary embolism Colitis COVID-19 Histoplasmosis Past Surgical History Surgical History History of back surgery History of esophagogastroduodenoscopy (EGD) History of tonsillectomy History of embolic filter insertion Hx of foot surgery Social History Smoking History Smoking Status: Former smoker Years Smokin Packs Smoked per Day: 1 (stopped in the late ) Alcohol Use Alcohol Usage: No Substance Abuse Hx Substance Use: No Occupation Occupation (List type of work in comments):: Retired Social Environment Status Marital Status: Current Living Arrangements Living Environment:: Alone Children How many children do you have?: 0 Safety Do you feel safe in your surroundings?: Yes Assistance Do you need any assistance at home?: no Review of Systems Review of Systems Hints Review of Present Symptoms: Reports Fatigue, Appetite - Normal and Appetite - Special Diet; Denies Shortness of Breath at Rest, Shortness of Breath with Exertion, PVD, Operative Discomfort, Angina, Wound Healing, Dizziness/Lightheadedness, Heart Arrhythmia/Irregularities, Sleep - Normal or Sexual Changes Pain Is Patient Pain Free?: No Pain Location: other (arthritis pain ) Risk Factor Assessment Chief Complaint Chief Complaint: s/p TAVR Vital Signs Pulse Ox: 98 Blood Pressure: 100/54 Pulse Pulse Rate: 84 Hypertension Blood Pressure Sitting - Right Arm: 100/54 Obesity Height: 5 ft 3 in Weight:: 124 lb Weight in Pounds: 124.0 lbs Body Mass Index (BMI): 21.9 Physical Inactivity Physical Inactivity: None Risk Stratification Risk Guidelines: Lowest Risk: Risk Factor for Smoking and (more content not included)... [facility] No Panel InformationOrdered By: Santos Guillory on 05-28-2024 [facility] Cardiac Rehab [address] [place] [address] CR - Individual Treatment Plan MR#: [id number] Acct: [id number] Name: HAYDEE BUSTAMANTE Rep #:[id number] : 1945 78 From: Santos Rubalcava BS, RVT PCP: Dr. Claudine Durán MD DOS: 11/13 Diagnosis General Information Admitting Diagnosis: s/p TAVR Personal Learning Style:: Audio/Visual Barriers to Learning: No Barriers Stage of change r/t lifestyle modifications:: Contemplation Gave educational material for:: Treating Heart Disease, How The Heart Works, What it means to have Heart Disease, How Coronary Artery Disease is Diagnosed, Heart Procedures, What Heart Medications Do, Risk Factors & Modifications, Living an Active Life, Nutrition, Emotions & Heart Disease, Stress Management & Relaxation and Sleep Disorders & Heart Disease Education/Goals Cardiac Rehabilitation Goals Personal Goals: Initial Assessment: Improve management of stress and emotions, Improve energy level, Participate in home exercise program, Get back to work, orto resume activities faster, Improve muscle strength and endurance and Improve diet and eating habits (eat healthier) Scale for measuring improvement of personal goals Diagnosis & Disease Process Outcomes/Goals: Pt IDs own risk factors & lifestyle modifications by Session 10,Verbalizes symptoms of angina & response by session 3., Pt independently managesand Other Additional Outcomes/Goals: Plan/Interventions: Assist Pt to ID & engage in lifestyle modification to reduceCVD risk, Instruct on individual risk factors, Review symptoms of angina & emergency actions, Review secondary diagnosis & identify educational needs. and Other see comment 30 day Reassessments:: Not Met 30 day Reassessments:: Not Met 30 day Reassessments:: Not Met 30 day Reassessments:: Not Met Final Reassessments:: Not Met Safety Referral to Physical Therapy: No Referral to [facility] Case Management: No Fall Risk Assessed:: Yes Assistive Devices:: None (uses a cane in the winter) Exercise - Initial Assessment Visit Date of Eval: 05/28/24 Mets: Pre-: >3 METS for 30 minutes by discharge, >5 METS for 30 minutes by discharge, >7 METS for 30 minutes by discharge and Unable to meet goal due to: (see comment below) Physician Prescribed Exercise Modalities: Nicolas Elkins AD-7, SciFit Stepper, SciFit Pro-II Ergometerand SciFit Lateral Unit Assembler Frequency: 3x/week for 12 weeks [36 sessions] Intensity: 60-80% of age predicted maximum heart rate reserve Duration: 30 - 45 minutes Current METSs:: 3 Target Heart Rate:: 86-108 Resting Blood Pressure: 100/54 EKG Type: NSR L anterior fascicular block Outcomes & Goals Goals:: Verbalizes understanding of THR, RPE & goal METS by session 6, Documentsin home exercise log/reports 30 min aerobic 5 day/wk by DC, Demonstrates accurate pulse taking by DC and Other additional outcome/goals: see below Intervention & Plan Exercise Program Goals: Instruct on personal THR & RPE, Instruct on MET level & personal MET goal, Show patient to take own pulse /validate performance until accurate, Instruct on home exercise and Other additional plan/int Physical Activity Home Exercise Physical Activity - Home Exercise: Safe Exercise, Warm-up, Self-monitoring, Cool-Down, Home Exercise > 30 min Daily and Sitting Time <3 hours/daily Outcomes & Goals Outcomes/Goals: Demonstrates correct Warm-up/exercise Cool-Down (S3) if = 2.5 METs, Verbalizes symptoms of exercise intolerance by Session 3 (S3), Demonstratesafe equipment use (S3) & follows exercise prescrition (6) and Other: See below Intervention & Plan Plan/Intervention: Instruct warm-up & cool-down if exercising at > 2 METs, Instruct on symptoms of exercise intolerance & actions to take, Instruct & monitor on saf, Assess intial functional capacity & safety risk and Other See below Nutrition - Initial Assessment Program Goals Nutrition Program Goals Patient has diagnosis of Hyperlipidemia (ICD E78)?: No Visit Date of Eval: 05/28/24 (initial eval ) Cholesterol/Lipids (Other Core Measures) Determine presence & major risk factors that modify LDL goal: Hypertension or hypertensive medication, Low HDL cholesterol <40 mg/dL*, Family history of premature CHD in Male < 55 years: female <65 yearsFa and Age men > 45 years; women >/= 55 years Outcomes/Goals: Pt IDs own risk factors & lifestyle modifications by Session 10,Verbalizes symptoms of angina & response by session 3., Pt independently managesand Other Additional Outcomes/Goals: Intervention/Plan: Advocate for lipid panel cholesterol medication if applicable, Instruct on personal lipid levels & lipid goals/NCEP guidelines, Instructon cholesterol and Other additional plan/int Diabetes (Other Core Measures) Diabetes Type: Not Applicable Weight Mgt (Other Care) Height: 5 ft 3 in Weight:: 124 lb BMI: 21.9 Diagnosis Overweight/Obesity BMI> 30% ICD-10 E66: No Diagnosis High BMI/Morbid Obesity BMI> 35% ICD-10 Z68: No Outcomes/Goals: Pt sets, maintains & shows weight loss goal & trend during rehaband Other additional (more content not included)... [facility] XR Chest PA and Lateralon Radiology Study observation (narrative) [facility] IMPRESSION: See result. Jack Machine Operator: KRYSTAL Transcribe Date/Time: Apr 30 2024 11:46A Dictated by : ABIGAIL ODOM MD This examination was interpreted and the report reviewed and electronically signed by: ABIGAIL ODOM MD on Apr 30 2024 11:47AM [facility] DIV[facility] OF RADIOLOGY * * *Final Report* * * DATE OF EXAM: Apr 30 2024 11:26AM JIX [id number] - XR CHEST 2V FRONTAL/LAT / PROCEDURE REASON: multiple diagnoses * * * * Physician Interpretation * * * * EXAMINATION: CHEST RADIOGRAPH (2 VIEW FRONTAL & LATERAL) CLINICAL HISTORY: Nonrheumatic aortic valve stenosis Aortic valve disorder MQ: [id number] EXAM DATE/TIME: 04/30/2024 11:26 AM COMPARISON: 03/21/2024 RESULT: Lines, tubes, and devices: None. Lungs and pleura: No consolidation. Reticular opacities in the upper lobes and perihilar regions of both lungs may represent pulmonary vascular redistribution. No evidence of alveolar edema. Scattered linear atelectasis in the lingula. No pleural effusion. No pneumothorax. Cardiomediastinal silhouette: The cardiomediastinal silhouette is mildly enlarged. Aortic arch atherosclerotic calcifications. Bones and soft tissues: Unremarkable. DIVISION OF RADIOLOGY Provider, [facility] - 04/30/2024 * * *Final Report* * * DATE OF EXAM: Apr 30 2024 11:26AM JIX [id number] - XR CHEST 2V FRONTAL/LAT / PROCEDURE REASON: multiple diagnoses * * * * Physician Interpretation * * * * EXAMINATION: CHEST RADIOGRAPH (2 VIEW FRONTAL & LATERAL) CLINICAL HISTORY: Nonrheumatic aortic valve stenosis Aortic valve disorder MQ: [id number] EXAM DATE/TIME: 04/30/2024 11:26 AM COMPARISON: 03/21/2024 RESULT: Lines, tubes, and devices: None. Lungs and pleura: No consolidation. Reticular opacities in the upper lobes and perihilar regions of both lungs may represent pulmonary vascular redistribution. No evidence of alveolar edema. Scattered linear atelectasis in the lingula. No pleural effusion. No pneumothorax. Cardiomediastinal silhouette: The cardiomediastinal silhouette is mildly enlarged. Aortic arch atherosclerotic calcifications. Bones and soft tissues: Unremarkable. IMPRESSION IMPRESSION: See result. Jack Machine Operator: KRYSTAL Transcribe Date/Time: Apr 30 2024 11:46A Dictated by : ABIGAIL ODOM MD This examination was interpreted and the report reviewed and electronically signed by: ABIGAIL ODOM MD on Apr 30 2024 11:47AM EST [facility] XR Chest PA and LateralOrder ed By: [facility] Provider on 04-30-2024 [facility] SPECT Heart for infarct W Tc -99m PYP IVOrdered By: [facility]cf Provider on 03-25-2024 Interpretation and review of laboratory results Abnormal [facility] Radiology Result ACTIONABLE Abnormal [facility] Comment on above: This report contains an incidental or actionable finding. This finding may be a new finding separate from the reason your provider ordered the imaging test or it may be an already known finding that needs additional or continued follow-up. Because of this incidental or actionable finding, you may need another test (imaging or a different type of test). Please contact your provider for the next steps. [facility] SPECT Heart for infarct W Tc -99m PYP Komal 03-25-2024 * * *Final Report* * * DATE OF EXAM: Mar 25 2024 12:13PM [facility] 0847 - [place] CARDIAC AMYLOID SPECT/CT / PROCEDURE REASON: Nonrheumatic aortic valve stenosis * * * * Physician Interpretation * * * * [facility] Report: [facility] Date of service: 03/25/2024 11:41:51 AM [facility] interpreting physician: Rob Marcelo MD PATIENT: Name: MS. HAYDEE BUSTAMANTE Age: 78 years Gender: F 1. Incidental Findings from limited non-diagnostic CTAC: - Coronary calcifications visualized. MAC - Aortic valve leaflet calcifications visualized. Correlation with echocardiography suggested. - Incidental Finding: Follow-up for lung nodule >= 0.6 cm visualized. Recommend dedicated chest CT and/or comparison to prior studies if available. * * * Final * * * Patient: Name: MS. HAYDEE BUSTAMANTE Age: 78 years Gender: F CONCLUSIONS: 1. Not Consistent with TTR amyloidosis * Please note that a negative or mildly positive study does not exclude AL amyloid. In addition, equivocal results could represent AL amyloid or early ATTR. We suggest concomitant workup of AL amyloid with laboratory testing and pathologic assessment as appropriate. Nuclear Med Report: Planar and SPECT myocardial imaging of the chest with CT attenuation correction was performed at 3 hours post IV injection of radiotracer. See administered radiotracer and dose below. [facility] Date of service: 03/25/2024 11:41:51 AM Ordering Physician: Requesting Physician: MONICA NEWMAN Indication: Suspected Amyloid Heart Disease Interpreting physician: Rob Marcelo MD CT Dose-Length Product(DLP): 103.0 mGy * cm. CT Dose Reduction Employed: Yes. Exam Type: Rest Study Date: 03/25/2024 Radiopharm: 99m Technetium-HDP Dosage(mCi): 20.8 Injection Time: 8:34:00 AM Atten Correction: performed Time Interval: 3.0 hours Image Quality The overall study imaging quality was deemed to be good. CARDIAC FINDINGS: PLANAR: Visual Comparison to Bone: Grade 0 = No uptake and normal bone uptake (negative for ATTR) SPECT: Uptake Pattern: Absent NON CARDIAC FINDINGS: Summary: Not Consistent with TTR amyloidosis * Please note that a negative or mildly positive study does not exclude AL amyloid. In addition, equivocal results could represent AL amyloid or early ATTR. We suggest concomitant workup of AL amyloid with laboratory testing and pathologic assessment as appropriate. * * * Final * * * RP Jack Machine Operator: SYNDYN Transcribe Date/Time: Mar 25 2024 11:41A Dictated by : ROB MARCELO MD This examination was interpreted and the report reviewed and electronically signed by: ROB MARCELO MD on Mar 25 2024 12:19PM [facility] DIVISION OF RADIOLOGY Provider, [facility] - 03/25/[facility]24 * * *Final Report* * * DATE OF EXAM: Mar 25 2024 12:13PM [facility] 0847 - [place] CARDIAC AMYLOID SPECT/CT / PROCEDURE REASON: Nonrheumatic aortic valve stenosis * * * * Physician Interpretation * * * * [facility] Report: [facility] Date of service: 03/25/2024 11:41:51 AM [facility] interpreting physician: Rob Marcelo MD PATIENT: Name: MS. HAYDEE BUSTAMANTE Age: 78 years Gender: F 1. Incidental Findings from limited non-diagnostic CTAC: - Coronary calcifications visualized. MAC - Aortic valve leaflet calcifications visualized. Correlation with echocardiography suggested. - Incidental Finding: Follow-up for lung nodule >= 0.6 cm visualized. Recommend dedicated chest CT and/or comparison to prior studies if available. * * * Final * * * Patient: Name: MS. HAYDEE BUSTAMANTE Age: 78 years Gender: F CONCLUSIONS: 1. Not Consistent with TTR amyloidosis * Please note that a negative or mildly positive study does not exclude AL amyloid. In addition, equivocal results could represent AL amyloid or early ATTR. We suggest concomitant workup of AL amyloid with laboratory testing and pathologic assessment as appropriate. Nuclear Med Report: Planar and SPECT myocardial imaging of the chest with CT attenuation correction was performed at 3 hours post IV injection of radiotracer. See administered radiotracer and dose below. [facility] Date of service: 03/25/2024 11:41:51 AM Ordering Physician: Requesting Physician: MONICA TRENT Indication: Suspected Amyloid Heart Disease Interpreting physician: Rob Marcelo MD CT Dose-Length Product(DLP): 103.0 mGy * cm. CT Dose Reduction Employed: Yes. Exam Type: Rest Study Date: 03/25/2024 Radiopharm: 99m Technetium-HDP Dosage(mCi): 20.8 Injection Time: 8:34:00 AM Atten Correction: performed Time Interval: 3.0 hours Image Quality The overall study imaging quality was deemed to be good. CARDIAC FINDINGS: PLANAR: Visual Comparison to Bone: Grade 0 = No uptake and normal bone uptake (negative for ATTR) SPECT: Uptake Pattern: Absent NON CARDIAC FINDINGS: Summary: Not Consistent with TTR amyloidosis * Please note that a negative or mildly positive study does not exclude AL amyloid. In addition, equivocal results could represent AL amyloid or early ATTR. We suggest concomitant workup of AL amyloid with laboratory testing and pathologic assessment as appropriate. * * * Final * * * RP Jack Machine Operator: BELEN Transcribe Date/Time: Mar 25 2024 11:41A Dictated by : ROB MARCELO MD This examination was interpreted and the report reviewed and electronically signed by: ROB MARCELO MD on Mar 25 2024 12:19PM EST [facility] Radiology Study observation (narrative) [facility] CREATININE, BLOOD (POC)on Creatinine [Mass/Vol] 0.60 mg/dL Abnormal 0.7 - 1.4 mg/dL [facility] eGFR (POCT) mL/min/1.7 3 m2 [facility] Interpretation and review of laboratory results Abnormal [facility] Location:Radiology [facility], [address] [place] [address] POINT OF CARE [facility] CTA Abdominal vessels and Pe lvis vessels W contrast Komal 03-21-2024 * * *Final Report* * * DATE OF EXAM: Mar 21 2024 10:56AM [facility] 0311 - CTA ABD/PELV W IVCON / PROCEDURE REASON: multiple diagnoses * * * * Physician Interpretation * * * * [facility] Aorta chest, abdomen and pelvis Direct Image Comparison: None HISTORY: 78 years y/o Female with chronic h/o aortic valve stenosis. Evaluation for further treatment options, including surgical and transcatheter interventional treatment. There is request to define thoracic and aortic anatomy. Additional request to define details aortic annulus and root anatomy including dynamic assessment TECHNIQUE: SCANNER: Multi-detector scanner PROTOCOL: Spiral imaging of the heart with retrospective gating with sub-millimeter slice reconstruction throughout the cardiac cycle for dynamic 4-D assessment, following intravenous contrast administration. Additional single-phase, non-gated spiral imaging of the chest/abdomen/pelvis without additional contrast administration. Scan Range: thoracic inlet through the ischial tuberosities CT Dose-Length Product (DLP): 465 mGy*cm CT Dose Reduction Employed: Automated exposure control(AEC) and iterative recon CONTRAST: IV administration of 60 ml Omnipaque 350 Scan acquisition: uncomplicated Macro Version: [id number] For optimization of anatomic evaluation, advanced 3-D off-line postprocessing was performed on a dedicated workstation by the interpreting physician. STUDY LIMITATIONS: Limited contrast enhancement of the aorta except for the level of the heart.. RESULT: LINES, TUBES and DEVICES: None CHEST: Chest wall anatomy: unremarkable. LUNGS: unremarkable. Stable peripheral calcified nodule left lower lobe MEDIASTINUM: unremarkable. Small hiatal hernia PERICARDIUM: unremarkable CENTRAL PULMONARY ARTERY: normal dimensions. Assessment is limited due to limited contrast enhancement. CARDIAC CHAMBERS: LEFT VENTRICLE: normal size with normal systolic function; LV EF = 68 %; LV EDV 109 ml; LVmass 160 g RIGHT VENTRICLE: normal size and normal function on qualitative assessment. LV/RV reference values: [normal values LV EDV 77-195 ml; LVmass 118-238 g normal value RV EDV 88-227 ml] Left Atrium: dilated. FAUSTINA: normal. Right Atrium: dilated CENTRAL VENOUS and PULMONARY VENOUS RETURN: normal. IVC filter Coronary Sinus: normal size MITRAL VALVE: assessment is limited in the current study - no leaflet calcification. Moderate to severe mitral annular calcification TRICUSPID and PULMONIC VALVE: appear unremarkable. CORONARY ANATOMY: normal origin of the coronary arteries. Calcified atherosclerotic changes of the coronary arteries, precluding precise assessment with CT. AORTIC ANNULUS: no calcification -max. and min. Diameter: 2.4 x 2.1 cm, AREA: 3.5 cm2, Circumference: 6.9 cm AORTIC VALVE: appears trileaflet. Severe leaflet calcification. - AV calcium score 1005 AU (threshold 360 HU, Score likely underestimated relative to standard threshold of 130 HU) - significant restriction of valve opening with star-shaped systolic opening area consistent with likely severe aortic stenosis. Coronary Height/distance to annulus: Left Main: 12 mm, RCA: 11 mm. AORTA: Pathology: No acute aortic pathology. Intervention: None Complications: n/a Aortic Size: Normal size thoracic and abdominal aorta. STJ: maintained. Wall Changes: scattered mild partially calcified wall changes. Arch Branch Vessels: Patent, normal size proximal segments of the arch branch vessels, with mild partially calcified wall changes. Visceral Branch Vessels: Patent, normal size proximal segments of the visceral branch vessels and renal arteries, with minimal proximal partially calcified wall changes. Iliac Arteries: Patent, normal size iliac arteries, with mild partially calcified wall changes. AORTIC DIMENSIONS: AORTIC ROOT: 3.5 cm measured [id number] STJ: 2.5 cm mid ASCENDING THORACIC AORTA: 3.2 cm mid AORTIC ARCH: 2.4 cm mid DESCENDING THORACIC AORTA: 2.7 cm JUXTARENAL ABDOMINAL AORTA (level of SMA): 2.2 cm mid INFRARENAL ABDOMINAL AORTA: 1.8 cm Diameter Left and Right Common Iliac Arteries minimal luminal diameter: 9 mm / 7 mm Diameter Left and Right External Iliac Arteries (and Common Femoral Arteries) minimal luminal diameter: 7 mm / 7 mm ABDOMEN Gallbladder: unremarkable. Liver: unremarkable. Spleen: unremarkable. Adrenal glands: unremarkable. Pancreas: unremarkable. Kidneys: unremarkable. Bowel: appears unremarkable within limitations of non-GI contrast examination. Small fat-containing paraumbilical hernia. PELVIS: Bladder: unremarkable, within the limitations of the current study. BONES and SOFT TISSUES: degenerative changes of the thoracic and lumbar spine. Anterolisthesis of L4 over L5 Barn Manager (topogram) images: No additional findings. DIVISION OF RADIOLOGY Provider, [facility] - 03/21/2024 * * *Final Report* * * DATE OF EXAM: Mar 21 2024 10:56AM [facility] 0311 - CTA ABD/PELV W IVCON / PROCEDURE REASON: multiple diagnoses * * * * Physician Interpretation * * * * CTA Aorta chest, abdomen and pelvis Direct Image Comparison: None HISTORY: 78 years y/o Female with chronic h/o aortic valve stenosis. Evaluation for further treatment options, including surgical and transcatheter interventional treatment. There is request to define thoracic and aortic anatomy. Additional request to define details aortic annulus and root anatomy including dynamic assessment TECHNIQUE: SCANNER: Multi-detector scanner PROTOCOL: Spiral imaging of the heart with retrospective gating with sub-millimeter slice reconstruction throughout the cardiac cycle for dynamic 4-D assessment, following intravenous contrast administration. Additional single-phase, non-gated spiral imaging of the chest/abdomen/pelvis without additional contrast administration. Scan Range: thoracic inlet through the ischial tuberosities CT Dose-Length Product (DLP): 465 mGy*cm CT Dose Reduction Employed: Automated exposure control(AEC) and iterative recon CONTRAST: IV administration of 60 ml Omnipaque 350 Scan acquisition: uncomplicated Macro Version: [id number] For optimization of anatomic evaluation, advanced 3-D off-line postprocessing was performed on a dedicated workstation by the interpreting physician. STUDY LIMITATIONS: Limited contrast enhancement of the aorta except for the level of the heart.. RESULT: LINES, TUBES and DEVICES: None CHEST: Chest wall anatomy: unremarkable. LUNGS: unremarkable. Stable peripheral calcified nodule left lower lobe MEDIASTINUM: unremarkable. Small hiatal hernia PERICARDIUM: unremarkable CENTRAL PULMONARY ARTERY: normal dimensions. Assessment is limited due to limited contrast enhancement. CARDIAC CHAMBERS: LEFT VENTRICLE: normal size with normal systolic function; LV EF = 68 %; LV EDV 109 ml; LVmass 160 g RIGHT VENTRICLE: normal size and normal function on qualitative assessment. LV/RV reference values: [normal values LV EDV 77-195 ml; LVmass 118-238 g normal value RV EDV 88-227 ml] Left Atrium: dilated. FAUSTINA: normal. Right Atrium: dilated CENTRAL VENOUS and PULMONARY VENOUS RETURN: normal. IVC filter Coronary Sinus: normal size MITRAL VALVE: assessment is limited in the current study - no leaflet calcification. Moderate to severe mitral annular calcification TRICUSPID and PULMONIC VALVE: appear unremarkable. CORONARY ANATOMY: normal origin of the coronary arteries. Calcified atherosclerotic changes of the coronary arteries, precluding precise assessment with CT. AORTIC ANNULUS: no calcification -max. and min. Diameter: 2.4 x 2.1 cm, AREA: 3.5 cm2, Circumference: 6.9 cm AORTIC VALVE: appears trileaflet. Severe leaflet calcification. - AV calcium score 1005 AU (threshold 360 HU, Score likely underestimated relative to standard threshold of 130 HU) - significant restriction of valve opening with star-shaped systolic opening area consistent with likely severe aortic stenosis. Coronary Height/distance to annulus: Left Main: 12 mm, RCA: 11 mm. AORTA: Pathology: No acute aortic pathology. Intervention: None Complications: n/a Aortic Size: Normal size thoracic and abdominal aorta. STJ: maintained. Wall Changes: scattered mild partially calcified wall changes. Arch Branch Vessels: Patent, normal size proximal segments of the arch branch vessels, with mild partially calcified wall changes. Visceral Branch Vessels: Patent, normal size proximal segments of the visceral branch vessels and renal arteries, with minimal proximal partially calcified wall changes. Iliac Arteries: Patent, normal size iliac arteries, with mild partially calcified wall changes. AORTIC DIMENSIONS: AORTIC ROOT: 3.5 cm measured [id number] STJ: 2.5 cm mid ASCENDING THORACIC AORTA: 3.2 cm mid AORTIC ARCH: 2.4 cm mid DESCENDING THORACIC AORTA: 2.7 cm JUXTARENAL ABDOMINAL AORTA (level of SMA): 2.2 cm mid INFRARENAL ABDOMINAL AORTA: 1.8 cm Diameter Left and Right Common Iliac Arteries minimal luminal diameter: 9 mm / 7 mm Diameter Left and Right External Iliac Arteries (and Common Femoral Arteries) minimal luminal diameter: 7 mm / 7 mm ABDOMEN Gallbladder: unremarkable. Liver: unremarkable. Spleen: unremarkable. Adrenal glands: unremarkable. Pancreas: unremarkable. Kidneys: unremarkable. Bowel: appears unremarkable within limitations of non-GI contrast examination. Small fat-containing paraumbilical hernia. PELVIS: Bladder: unremarkable, within the limitations of the current study. BONES and SOFT TISSUES: degenerative changes of the thoracic and lumbar spine. Anterolisthesis of L4 over L5 Barn Manager (topogram) images: (more content not included)... [facility] Radiology Study observation (narrative) [facility] CTA Chest vessels W contrast Komal 03-21-2024 * * *Final Report* * * DATE OF EXAM: Mar 21 2024 10:56AM JQC 0125 - CTA CHEST (GATED) W IVCON / PROCEDURE REASON: multiple diagnoses * * * * Physician Interpretation * * * * CTA Aorta chest, abdomen and pelvis Direct Image Comparison: None HISTORY: 78 years y/o Female with chronic h/o aortic valve stenosis. Evaluation for further treatment options, including surgical and transcatheter interventional treatment. There is request to define thoracic and aortic anatomy. Additional request to define details aortic annulus and root anatomy including dynamic assessment TECHNIQUE: SCANNER: Multi-detector scanner PROTOCOL: Spiral imaging of the heart with retrospective gating with sub-millimeter slice reconstruction throughout the cardiac cycle for dynamic 4-D assessment, following intravenous contrast administration. Additional single-phase, non-gated spiral imaging of the chest/abdomen/pelvis without additional contrast administration. Scan Range: thoracic inlet through the ischial tuberosities CT Dose-Length Product (DLP): 465 mGy*cm CT Dose Reduction Employed: Automated exposure control(AEC) and iterative recon CONTRAST: IV administration of 60 ml Omnipaque 350 Scan acquisition: uncomplicated Macro Version: [id number] For optimization of anatomic evaluation, advanced 3-D off-line postprocessing was performed on a dedicated workstation by the interpreting physician. STUDY LIMITATIONS: Limited contrast enhancement of the aorta except for the level of the heart.. RESULT: LINES, TUBES and DEVICES: None CHEST: Chest wall anatomy: unremarkable. LUNGS: unremarkable. Stable peripheral calcified nodule left lower lobe MEDIASTINUM: unremarkable. Small hiatal hernia PERICARDIUM: unremarkable CENTRAL PULMONARY ARTERY: normal dimensions. Assessment is limited due to limited contrast enhancement. CARDIAC CHAMBERS: LEFT VENTRICLE: normal size with normal systolic function; LV EF = 68 %; LV EDV 109 ml; LVmass 160 g RIGHT VENTRICLE: normal size and normal function on qualitative assessment. LV/RV reference values: [normal values LV EDV 77-195 ml; LVmass 118-238 g normal value RV EDV 88-227 ml] Left Atrium: dilated. FAUSTINA: normal. Right Atrium: dilated CENTRAL VENOUS and PULMONARY VENOUS RETURN: normal. IVC filter Coronary Sinus: normal size MITRAL VALVE: assessment is limited in the current study - no leaflet calcification. Moderate to severe mitral annular calcification TRICUSPID and PULMONIC VALVE: appear unremarkable. CORONARY ANATOMY: normal origin of the coronary arteries. Calcified atherosclerotic changes of the coronary arteries, precluding precise assessment with CT. AORTIC ANNULUS: no calcification -max. and min. Diameter: 2.4 x 2.1 cm, AREA: 3.5 cm2, Circumference: 6.9 cm AORTIC VALVE: appears trileaflet. Severe leaflet calcification. - AV calcium score 1005 AU (threshold 360 HU, Score likely underestimated relative to standard threshold of 130 HU) - significant restriction of valve opening with star-shaped systolic opening area consistent with likely severe aortic stenosis. Coronary Height/distance to annulus: Left Main: 12 mm, RCA: 11 mm. AORTA: Pathology: No acute aortic pathology. Intervention: None Complications: n/a Aortic Size: Normal size thoracic and abdominal aorta. STJ: maintained. Wall Changes: scattered mild partially calcified wall changes. Arch Branch Vessels: Patent, normal size proximal segments of the arch branch vessels, with mild partially calcified wall changes. Visceral Branch Vessels: Patent, normal size proximal segments of the visceral branch vessels and renal arteries, with minimal proximal partially calcified wall changes. Iliac Arteries: Patent, normal size iliac arteries, with mild partially calcified wall changes. AORTIC DIMENSIONS: AORTIC ROOT: 3.5 cm measured [id number] STJ: 2.5 cm mid ASCENDING THORACIC AORTA: 3.2 cm mid AORTIC ARCH: 2.4 cm mid DESCENDING THORACIC AORTA: 2.7 cm JUXTARENAL ABDOMINAL AORTA (level of SMA): 2.2 cm mid INFRARENAL ABDOMINAL AORTA: 1.8 cm Diameter Left and Right Common Iliac Arteries minimal luminal diameter: 9 mm / 7 mm Diameter Left and Right External Iliac Arteries (and Common Femoral Arteries) minimal luminal diameter: 7 mm / 7 mm ABDOMEN Gallbladder: unremarkable. Liver: unremarkable. Spleen: unremarkable. Adrenal glands: unremarkable. Pancreas: unremarkable. Kidneys: unremarkable. Bowel: appears unremarkable within limitations of non-GI contrast examination. Small fat-containing paraumbilical hernia. PELVIS: Bladder: unremarkable, within the limitations of the current study. BONES and SOFT TISSUES: degenerative changes of the thoracic and lumbar spine. Anterolisthesis of L4 over L5 Barn Manager (topogram) images: No additional findings. DIVISION OF RADIOLOGY Provider, [facility] - 03/21/2024 * * *Final Report* * * DATE OF EXAM: Mar 21 2024 10:56AM [facility]QC 0125 - CTA CHEST (GATED) W IVCON / PROCEDURE REASON: multiple diagnoses * * * * Physician Interpretation * * * * CTA Aorta chest, abdomen and pelvis Direct Image Comparison: None HISTORY: 78 years y/o Female with chronic h/o aortic valve stenosis. Evaluation for further treatment options, including surgical and transcatheter interventional treatment. There is request to define thoracic and aortic anatomy. Additional request to define details aortic annulus and root anatomy including dynamic assessment TECHNIQUE: SCANNER: Multi-detector scanner PROTOCOL: Spiral imaging of the heart with retrospective gating with sub-millimeter slice reconstruction throughout the cardiac cycle for dynamic 4-D assessment, following intravenous contrast administration. Additional single-phase, non-gated spiral imaging of the chest/abdomen/pelvis without additional contrast administration. Scan Range: thoracic inlet through the ischial tuberosities CT Dose-Length Product (DLP): 465 mGy*cm CT Dose Reduction Employed: Automated exposure control(AEC) and iterative recon CONTRAST: IV administration of 60 ml Omnipaque 350 Scan acquisition: uncomplicated Macro Version: [id number] For optimization of anatomic evaluation, advanced 3-D off-line postprocessing was performed on a dedicated workstation by the interpreting physician. STUDY LIMITATIONS: Limited contrast enhancement of the aorta except for the level of the heart.. RESULT: LINES, TUBES and DEVICES: None CHEST: Chest wall anatomy: unremarkable. LUNGS: unremarkable. Stable peripheral calcified nodule left lower lobe MEDIASTINUM: unremarkable. Small hiatal hernia PERICARDIUM: unremarkable CENTRAL PULMONARY ARTERY: normal dimensions. Assessment is limited due to limited contrast enhancement. CARDIAC CHAMBERS: LEFT VENTRICLE: normal size with normal systolic function; LV EF = 68 %; LV EDV 109 ml; LVmass 160 g RIGHT VENTRICLE: normal size and normal function on qualitative assessment. LV/RV reference values: [normal values LV EDV 77-195 ml; LVmass 118-238 g normal value RV EDV 88-227 ml] Left Atrium: dilated. FAUSTINA: normal. Right Atrium: dilated CENTRAL VENOUS and PULMONARY VENOUS RETURN: normal. IVC filter Coronary Sinus: normal size MITRAL VALVE: assessment is limited in the current study - no leaflet calcification. Moderate to severe mitral annular calcification TRICUSPID and PULMONIC VALVE: appear unremarkable. CORONARY ANATOMY: normal origin of the coronary arteries. Calcified atherosclerotic changes of the coronary arteries, precluding precise assessment with CT. AORTIC ANNULUS: no calcification -max. and min. Diameter: 2.4 x 2.1 cm, AREA: 3.5 cm2, Circumference: 6.9 cm AORTIC VALVE: appears trileaflet. Severe leaflet calcification. - AV calcium score 1005 AU (threshold 360 HU, Score likely underestimated relative to standard threshold of 130 HU) - significant restriction of valve opening with star-shaped systolic opening area consistent with likely severe aortic stenosis. Coronary Height/distance to annulus: Left Main: 12 mm, RCA: 11 mm. AORTA: Pathology: No acute aortic pathology. Intervention: None Complications: n/a Aortic Size: Normal size thoracic and abdominal aorta. STJ: maintained. Wall Changes: scattered mild partially calcified wall changes. Arch Branch Vessels: Patent, normal size proximal segments of the arch branch vessels, with mild partially calcified wall changes. Visceral Branch Vessels: Patent, normal size proximal segments of the visceral branch vessels and renal arteries, with minimal proximal partially calcified wall changes. Iliac Arteries: Patent, normal size iliac arteries, with mild partially calcified wall changes. AORTIC DIMENSIONS: AORTIC ROOT: 3.5 cm measured [id number] STJ: 2.5 cm mid ASCENDING THORACIC AORTA: 3.2 cm mid AORTIC ARCH: 2.4 cm mid DESCENDING THORACIC AORTA: 2.7 cm JUXTARENAL ABDOMINAL AORTA (level of SMA): 2.2 cm mid INFRARENAL ABDOMINAL AORTA: 1.8 cm Diameter Left and Right Common Iliac Arteries minimal luminal diameter: 9 mm / 7 mm Diameter Left and Right External Iliac Arteries (and Common Femoral Arteries) minimal luminal diameter: 7 mm / 7 mm ABDOMEN Gallbladder: unremarkable. Liver: unremarkable. Spleen: unremarkable. Adrenal glands: unremarkable. Pancreas: unremarkable. Kidneys: unremarkable. Bowel: appears unremarkable within limitations of non-GI contrast examination. Small fat-containing paraumbilical hernia. PELVIS: Bladder: unremarkable, within the limitations of the current study. BONES and SOFT TISSUES: degenerative changes of the thoracic and lumbar spine. 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 [facility] Radiology Study observation (narrative) [facility] No Panel Informationon 03-21 IMPRESSION: Aortic Annulus and valve anatomy as described above Normal thoracic and abdomiinal aorta.Atherosclerotic changes as in the body of the report.Minimum luminal diameter throughout: 7 mm Jack Machine Operator: KRYSTAL Transcribe Date/Time: Mar 21 2024 11:22A Dictated by : CALIXTO BLACKWOOD MD This examination was interpreted and the report reviewed and electronically signed by: CALIXTO BLACKWOOD MD on Mar 21 2024 12:53PM EST DIVISION OF RADIOLOGY No Panel InformationOrdered By: Ccf Provider on 03-21-2024 [facility] XR Chest PA and Lateralon IMPRESSION: See result Jack Machine Operator: KRYSTAL Transcribe Date/Time: Mar 21 2024 12:02P Dictated by : JACKELINE SCHULER MD This examination was interpreted and the report reviewed and electronically signed by: JACKELINE SCHULER MD on Mar 21 2024 12:04PM EST DIVISION OF RADIOLOGY * * *Final Report* * * DATE OF EXAM: Mar 21 2024 11:36AM [id number] - XR CHEST 2V FRONTAL/LAT / PROCEDURE REASON: Nonrheumatic aortic valve stenosis * * * * Physician Interpretation * * * * EXAMINATION: CHEST RADIOGRAPH (2 VIEW FRONTAL & LATERAL) CLINICAL HISTORY: Nonrheumatic aortic valve stenosis MQ: XC2_6 EXAM DATE/TIME: 03/21/2024 11:36 AM COMPARISON: 03/21/2023 RESULT: Lines, tubes, and devices: IVC filter Lungs and pleura: No consolidation or signs of edema. Left basilar dense nodule reflecting granuloma seen on prior CT. No effusion Cardiomediastinal silhouette: Stable cardiomediastinal silhouette. Bones and soft tissues: Degenerative changes. Decreased bone density DIVISION OF RADIOLOGY Provider, Narayan Wood [facility] - 03/21/2024 * * *Final Report* * * DATE OF EXAM: Mar 21 2024 11:36AM [id number] - XR CHEST 2V FRONTAL/LAT / PROCEDURE REASON: Nonrheumatic aortic valve stenosis * * * * Physician Interpretation * * * * EXAMINATION: CHEST RADIOGRAPH (2 VIEW FRONTAL & LATERAL) CLINICAL HISTORY: Nonrheumatic aortic valve stenosis MQ: XC2_6 EXAM DATE/TIME: 03/21/2024 11:36 AM COMPARISON: 03/21/2023 RESULT: Lines, tubes, and devices: IVC filter Lungs and pleura: No consolidation or signs of edema. Left basilar dense nodule reflecting granuloma seen on prior CT. No effusion Cardiomediastinal silhouette: Stable cardiomediastinal silhouette. Bones and soft tissues: Degenerative changes. Decreased bone density IMPRESSION IMPRESSION: See result Jack Machine Operator: PSCB Transcribe Date/Time: Mar 21 2024 12:02P Dictated by : JACKELINE SCHULER MD This examination was interpreted and the report reviewed and electronically signed by: JACKELINE SCHULER MD on Mar 21 2024 12:04PM [facility] Radiology Study observation (narrative) [facility] XR Chest PA and LateralOrder ed By: Cc [facility] on [facility] CNPN Telephone (AKPRAD) HAYDEE BUSTAMANTE ([id number]) 1945 F [facility] Date Time Provider Department 01/04/24 GENO HART During your visit today, we recorded the following information about you: Geno Hart MD 01/04/2024 2:33 PM Signed ID Messaged by of the cardiology service-regarding patient's histoplasmosis. Apparently patient needs either TAVR or valve surgery and wanted to know if the histoplasmosis would be a problem. There is no such thing is medical legal clearance for procedures by infectious disease. However, clinically I have no contraindications to any procedures because her histoplasmosis has been on treatment the second time since March 20 of this year, she now has no more active symptoms. She has no FUO nor does she have colonic bleeding like she had the first time around. She has felt pretty good and I called her today this afternoon and she still feels good. In the meantime her histoplasma antigen is now negative not even low-level positive and it is clearly come down on treatment. This is the test to trend and it is doing fine. Although we could potentially stop treatment now this histoplasmosis treatment is her second occurrence and its because she has rheumatoid arthritis on immunosuppressive meds. We are going to go at least 1 year on treatment and consider stopping so we should be well past the point of any procedures but if her procedures get delayed we could always extend the itraconazole beyond the procedure point. If she were to recur again I would consider some type of low-dose chronic itraconazole. There is no reason to wait and see how she does off therapy because it took quite some time to have a recurrence for the second episode. Geno Hart MD 01/04/2024 2:33 PM pgr [id number] Allergies As of Date: 01/04/2024 Noted Allergy Reaction PENICILLINS 01/04/2005 4 - Hives Date Reviewed: 01/02/2024 Reviewed by: Hina Melendez HUC - Fully Assessed Reason for Visit: Results [95] Prescriptions as of 01/04/2024 - warfarin (COUMADIN) 1 mg tablet Take 6 mg and 5 mg all other days or as directed. - itraconazole (SPORANOX) 10 mg/mL solution Take 20 mL by mouth two times a day. - warfarin (COUMADIN) 5 mg tablet Take 1 tablet by mouth once daily. or as directed - diclofenac (VOLTAREN) 1 % topical gel Apply 2 g to affected area four times daily. Both knees - spironolactone (ALDACTONE) 25 mg tablet Take 1 tablet by mouth once daily. - tiotropium bromide (SPIRIVA RESPIMAT) 2.5 mcg/actuation inhaler Inhale 2 Puffs as instructed once daily. Inhale two puffs once daily. - furosemide (LASIX) 20 mg tablet Take 1-2 tablets by mouth two times a day as needed. Take daily for x5 days and then can use as needed daily after that for swelling. - predniSONE (DELTASONE) 20 mg tablet 1 tablet three times a day for 3 days, then 2 times a day for 3 days, the one daily for 3 days. - potassium chloride ER (KLOR-CON M20) 20 mEq tablet Take 1 tablet by mouth two times a day. - itraconazole (SPORANOX) 100 mg capsule Take 2 capsules by mouth two times a day. - gabapentin (NEURONTIN) 300 mg capsule Take 1 capsule by mouth two times a day. - fluticasone-salmeterol (WIXELA INHUB) 250-50 mcg/dose inhaler Inhale 1 Puff as instructed two times a day. - albuterol HFA (PROAIR HFA) 90 mcg/actuation inhaler Inhale 2 Puffs as instructed every 4 hours as needed. - loperamide (IMODIUM) 2 mg cap(s) Take 1 capsule by mouth three times a day as needed for diarrhea for up to 7 days. - Mucus Clearing Device (QUAKE VIBRATORY PEP) renetta Provide 1 device - FOLIC ACID ORAL Take by mouth. - fluticasone (FLONASE) 50 mcg/actuation nasal spray Use 1 [place] in each nostril once daily. - pantoprazole DR (PROTONIX) 40 mg tablet Take 1 tablet by mouth once daily. - vit A,C,W-Jctu-Pbrqee (OCUVITE PRESERVISION) 2,148 mcg-113 mg-45 mg-17.4mg tab Take 2 tablets by mouth daily with breakfast. - leucovorin (LEUCOVORIN) 15 mg tablet Take [...] one(1) tablet daily. Facility-Administered Medications as of 01/04/2024 - perflutren lipid microspheres 1.3 mL in NaCl (PF) 0.9% 10 mL injection (DEFINITY) - sodium chloride 0.9 % (flush) 10 mL (BD POSIFLUSH) Meds Comments as of 03/05/2018: 03/05/18 The medications are managed by this patient by: PATIENT Muna Harris ([place] Weaver) [facility] for fpc medications. Problem List As Of Date 12/20 (more content not included)... Normal [facility] HISTOPLASMA AG URINEOrdered By: Cabrera Duggan on 12-21-2023 H. capsulatum Ag (U) [Mass/Vol] ng/mL NINF - 0.2 ng/mL [facility] H. capsulatum Ag IA Ql (U) Negative Negative [facility] Comment on above: Histoplasma galactom adilene antigen, urine test is used as an aid in diagnosing histoplasmosis. A negative result cannot rule out infection. Low positive results may at times be due to cross-reactivity with Blastomyces, Talaromyces marneffei, Paracoccidioides, and some Wendy species. Clinical radiological, and epidemiological correlation is required. Interpretation and review of laboratory results Normal [facility] ITRACONAZOLE BLOODOrdered By : Elvira Cronin on 12-21-2023 Hydroxyitraconazole 1.1 ug/mL [facility] Comment on above: Ranges are based on trough draw at steady-state concentration. Test performed by LC-MS/MS. Ranges are based off the Itraconazole trough levels alone, not combined with hydroxyitraconazole. Therapeutic: >1.0 ug/mL Prophylaxis: >0.4 ug/mL Toxic: >3.0 ug/mL (Toxic values will not be called) The therapeutic, prophylactic, and toxic ranges were based on the 2016 Infectious Disease Society of [place]'s (IDSA) Clinical Practice Guidelines for the Management of Aspergillosis and Candidiasis and consultation from [facility]'s Department of Infectious Disease. Reference ranges and high/low indicator flags are provided as general guidelines only. The treating physician must determine appropriate target levels/dosing based on the specific clinical situation. This test was developed, and its performance characteristics determined by the [facility] Department of Pathology and Laboratory Medicine. It has not been cleared or approved by the FDA. The [facility] Department of Pathology and Laboratory Medicine is regulated under CLIA as qualified to perform high-complexity testing. This test is used for clinical purposes. It should not be regarded as investigational or for research. Itraconazole 0.8 ug/mL 0.6 - 2.9 ug/mL [facility] Hepatic function 2000 panelo n 12-20-2023 Albumin [Mass/Vol] 3.7 g/dL Low 3.9 - 4.9 g/dL [facility] ALP [Catalytic activity/Vol] 95 U/L 34 - 123 U/L [facility] ALT [Catalytic activity/Vol] 19 U/L 7 - 38 U/L [facility] AST [Catalytic activity/Vol] 20 U/L 13 - 35 U/L [facility] Bilirubin [Mass/Vol] 0.6 mg/dL 0.2 - 1 .3 mg/dL [facility] Bilirubin.conjugated [Mass/Vol] 0.2 mg/dL [facility] Interpretation and review of laboratory results Abnormal [facility] Protein [Mass/Vol] 7.0 g/dL 6.3 - 8.0 g/dL [facility] CBC W Auto Differential pane l (Bld)on 10-11-2023 Basophils (Bld) [#/Vol] 0.05 10*3/uL [facility] Basophils/100 WBC (Bld) 0.5 % C [facility] Differential cell count method Nom (Bld) Auto [facility] Eosinophils (Bld) [#/Vol] 0.12 10*3/uL [facility] Eosinophils/100 WBC (Bld) 1.2 % [facility] Erythrocyte distribution width (RBC) [Ratio] 16.8 % High 11.5 - 15.0 % [facility] Hematocrit (Bld) [Volume fraction] 32.4 % Low 36.0 - 46.0 % [facility] Hemoglobin (Bld) [Mass/Vol] 10.1 g/dL Low 11.5 - 15.5 g/dL [facility] Immature granulocytes (Bld) [#/Vol] 0.05 10*3/uL [facility] Immature granulocytes/100 WBC (Bld) 0.5 % [facility] Interpretation and review of laboratory results Abnormal [facility] Lymphocytes (Bld) [#/Vol] 1.31 10*3/uL [facility] Lymphocytes/100 WBC (Bld) 13.3 % [facility] MCH (RBC) [Entitic mass] 26.9 pg 26.0 - 34.0 pg [facility] MCHC (RBC) [Mass/Vol] 31.2 g/dL 30.5 - 36.0 g/dL [facility] MCV (RBC) [Entitic vol] 86.4 fL 80.0 - 100.0 fL [facility] Monocytes (Bld) [#/Vol] 1.00 10*3/uL High [facility] Monocytes/100 WBC (Bld) 10.2 % C [facility] Neutrophils (Bld) [#/Vol] 7.32 10*3/uL [facility] Neutrophils/100 WBC (Bld) 74.3 % [facility] Nucleated RBC (Bld) [#/Vol] [facility] Nucleated RBC/100 WBC (Bld) [Ratio] 0.0 % /100 WBC [facility] Platelet mean volume (Bld) [Entitic vol] 11.6 fL 9.0 - 12.7 fL [facility] Platelets (Bld) [#/Vol] 349 10*3/uL [facility] RBC (Bld) [#/Vol] 3.75 10*6/uL Low 3.90 - 5.20 m/uL [facility] WBC (Bld) [#/Vol] 9.85 10*3/uL [facility] Comprehensive metabolic 2000 panelon 10-11-2023 Albumin [Mass/Vol] 3.9 g/dL 3.9 - 4.9 g/dL [facility] ALP [Catalytic activity/Vol] 111 U/L 34 - 123 U/L [facility] ALT [Catalytic activity/Vol] 22 U/L 7 - 38 U/L [facility] Anion gap [Moles/Vol] 11 mmol/L 8 - 15 mmol/L [facility] AST [Catalytic activity/Vol] 23 U/L 13 - 35 U/L [facility] Bilirubin [Mass/Vol] 0.3 mg/dL 0.2 - 1 .3 mg/dL [facility] Calcium [Mass/Vol] 9.4 mg/dL 8.5 - 10. 2 mg/dL [facility] Chloride [Moles/Vol] 99 mmol/L 98 - 10 7 mmol/L [facility] CO2 [Moles/Vol] 24 mmol/L 22 - 30 mmol/L [facility] Creatinine [Mass/Vol] 0.59 mg/dL 0.58 - 0.96 mg/dL [facility] GFR/1.73 sq M.predicted among non-blacks MDRD (S/P/Bld) [Vol rate/Area] 94 mL/min/{1.73_m2} - PINF [facility] Comment on above: Estimated Glomerular Filtration Rate (eGFR) is calculated using the 2020 CKD-EPI creatinine equation. This equation utilizes serum creatinine, sex, and age as parameters. The creatinine assay has traceable calibration to isotope dilution-mass spectrometry. Refer to KDIGO guidelines for clinical interpretation. In patients with unstable renal function, e.g. those with acute kidney injury, the eGFR may not accurately reflect actual GFR. Glucose [Mass/Vol] 76 mg/dL 74 - 99 mg/dL [facility] Comment on above: The [place] Diabete s Association (ADA) provides guidance for cutoff values for fasting glucose and random glucose. The ADA defines fasting as no caloric intake for at least 8 hours. Fasting plasma glucose results between 100 to 125 mg/dL indicate increased risk for diabetes (prediabetes). Fasting plasma glucose results greater than or equal to 126 mg/dL meet the criteria for diagnosis of diabetes. In the absence of unequivocal hyperglycemia, results should be confirmed by repeat testing. In a patient with classic symptoms of hyperglycemia or hyperglycemic crisis, random plasma glucose results greater than or equal to 200 mg/dL meet the criteria for diagnosis of diabetes. Reference: Standards of Medical Care in Diabetes 2016, [place] Diabetes Association. Diabetes Care. 2016.39(Suppl 1). Interpretation and review of laboratory results Abnormal [facility] Potassium [Moles/Vol] 5.1 mmol/L 3.7 - 5.1 mmol/L [facility] Protein [Mass/Vol] 7.6 g/dL 6.3 - 8.0 g/dL [facility] Sodium [Moles/Vol] 134 mmol/L Low 136 - 144 mmol/L [facility] Urea nitrogen [Mass/Vol] 26 mg/dL High 7 - 21 mg/dL [facility] MR/POSTOP.ANEon 10-02-2023 MR/POSTOP.ANE [facility] Medical Records Department [address] [place] [address] Anesthesia Postop Eval I 10/02/23 1329 MR#: [id number] Acct: [id number] Name: HAYDEE BUSTAMANTE Rep #: [id number] : 1945 78 From: Monique Drew PCP: Dr. Claudine Durán MD Status:REG [facility] Race: C Location: [place] [address] Anesthesia: Postop Eval I Current Vital Signs Temperature: 98 F Pulse Rate: 80 Blood Pressure: 93/51 Respiratory Rate: 18 Pulse Ox: 98 Assessment Airway patent: Yes Spontaneous unlabored respirations: Yes nausea: No Vomiting: No Anesthesia Complication: No Fluid Hydration Crystalloid volume administer (ml): 400 Total IV fluid infused: 400 Progress Note Anesthesia document: Postop Eval 1 completed: Yes 10/02/23 1329 Date Monique Jha Signature: Date CC: Signed Normal [facility] [id number] 10-02-2023 MR/POSTOPAN2 [facility] Medical Records Department [address] [place] [address] Anesthesia Postop Eval II 10/02/23 1407 MR#: [id number] Acct: [id number] Name: HAYDEE BUSTAMANTE Rep #: [id number] : 1945 78 From: Bob Vital MD PCP: Dr. Claudine Durán MD Status:REG SDC Y Race: C Location: [place] [address] Anesthesia Postop Eval I Sum Postop Eval Completion status Anesthesia document: Postop Eval 1 completed: Yes Anesthesia Postop Eval I Summary Anesthesia Postop Eval I Summary: Anesthesia Postop Eval I: Assessment Summary Airway patent Yes 10/02/23 13:29 [email or web address] Spontaneous unlabored Yes 10/02/23 13:29 [employer][email or web address].CSIR respirations Mental status nausea No 10/02/23 13:29 [employer]WOM[employer]CSIR Vomiting No 10/02/23 13:29 [employer]SM[employer]/[email or web address].CSIR Anesthesia Postop Eval I: Fluid Summary Crystalloid volume administer 400 10/02/23 13:29 LOFTSMAN/[email or web address].CSIR (ml) Colloids volume administered ( ml) Blood Product volume administered (ml) Total IV fluid infused 400 10/02/23 13:29 LO[employer]SMAN/[email or web address].CSIR Anesthesia Postop Eval I: Summary Notes Anesthesia Complication No 10/02/23 13:29 LOFTSMAN/[email or web address].CSIR Anesthesia Complication Comment: Post-operative progress note Anesthesia: Postop Eval II Evaluation Mental status: Awake Pain Level: 0 nausea: No Vomiting: No 10/02/23 1407 Date Bob Vital MD Cosigner Signature: Date CC: Signed Normal [facility] Office Visit Reporton 2023 Office Visit Report [facility] [address] [address] OFFICE VISIT Date of Service: MR#: [id number] Acct: [id number] Patient: HAYDEE BUSTAMANTE Rep #: [id number] : 1945 Provider: Mathew Orellana DO Age/Sex: 78/F [place] [facility] [place]: Signed Intake Vital Signs 10/02/23 11:48 Height 5 ft 3 in Intake Visit Reasons: Video capsule placement Allergies Penicillins Allergy (Severe, Verified 10/02/23 11:42) Anaphylaxis Have you fallen in the past year?: No Nursing Note Capsule endoscopy performed prior to colonoscopy. ID number: [id number]: [id number] Clinical Quality Measures Falls Risk Screening/Assistive Devices Have you fallen in the past year?: No 10/02/23 1710 Date Mathew Odonnell Signature: Date (if applicable) CC: Normal [facility] Protime w/INR Fingerstickon 10-02-2023 INR Coag (PPP) [Relative time] 1.3 {INR} Normal [facility] Comment on above: Result Comment: Crit ical Value > 4.0 Performed By: #### L 9200.0000 #### [facility] [address] [place], [place], [id number] Protime [place] 13.9 SEC Normal 11.7-14.9 [facility] Comment on above: Performed By: #### L 9200.0000 #### [facility] [address] [place], [address] Surgery Specimen Level Komal 10-02-2023 Surgery Specimen Level IV Patient Age/Sex Location Account Attending Physician ROBBYHAYDEE DIONTE 78/F EN [id number] Mathew Orellana DO Specimen: [id number] Received: 10/02/23 Status: AMMY [place] Num: [id number] Spec Type: EGD BIOPSY Subm Dr: Mathew Orellana DO HEADER OPERATION: EGD with biopsy, colonoscopy with biopsy PRE-OP DIAGNOSIS: Gastric ulcer, duodenitis TISSUE SUBMITTED: A- Duodenum biopsy, B- Cecal polyp biopsy MICROSCOPIC DIAGNOSIS A. Duodenum, biopsy: Mild chronic and focal acute inflammation, non-specific. B. Cecal polyp, biopsy: Tubular adenoma. HARRIET/ 10/04/2023 MICROSCOPIC DESCRIPTION Slides are reviewed. GROSS DESCRIPTION A. Received in fixative is one container labeled with the patient's name and designated "Duodenum biopsy." The specimen consists of two irregular fragments of light odell soft tissue that in aggregate measure 0.6 x 0.3 x 0.1 cm. The specimen is totally submitted in one cassette. B. Received in fixative is one container labeled with the patient's name and designated "Cecal polyp biopsy." The specimen consists of one irregular fragment of light odell soft tissue that measures 0.4 x 0.3 x 0.1 cm. The specimen is totally submitted in one cassette. 10/03/2023 TC:2 CPT:12340a5 Patient Age/Sex Location Account Attending Physician HAYDEE BUSTAMANTE 78/F EN [id number] Mathew Orellana DO Signed (signature on file) Dr. Elpidio Laboy DO 10/04/23 1118 Normal [facility] Comment on above: Performed By: #### P SUIV #### [facility] [address] [place], [address] CBC W/Diff, Automatedon 07-02 23-2023 Absolute Lymph 0.93 X10 3/uL Normal 0.83-4.51 [facility] Comment on above: Performed By: #### L 100.0100 #### [facility] [address] [place], [address] Absolute Neut 4.3 X10 3/uL Normal 2.0-7.7 [facility] Comment on above: Performed By: #### L 100.0100 #### [facility] [address] [place], [address] Basophils/100 WBC (Bld) 0.8 % Normal 0-1 [facility] Comment on above: Performed By: #### L 100.0100 #### [facility] [address] [place], [address] Eosinophils/100 WBC (Bld) 0.6 % Normal 0-5 [facility] Comment on above: Performed By: #### L 100.0100 #### [facility] [address] [place], [address] Erythrocyte distribution width (RBC) [Ratio] 17.6 % High 11.6-14.6 [facility] Comment on above: Performed By: #### L 100.0100 #### [facility] [address] [place], [address] Hematocrit (Bld) [Volume fraction] 27.7 % Low 37-47 [facility] Comment on above: Performed By: #### L 100.0100 #### [facility] [address] [place], [address] Hemoglobin (Bld) [Mass/Vol] 8.8 g/dL Low 12.0-15.0 [facility] Comment on above: Performed By: #### L 100.0100 #### [facility] [address] [place], [address] IG% 0.500 Normal 0.0-0.9 [facility] Comment on above: Result Comment: IG% - Immature Granulocytes (promyelocytes, myelocytes and metamyelocytes) > 1% indicates that a LEFT SHIFT is Present. Performed By: #### L 100.0100 #### [facility] [address] [place], [address] Lymphocytes/100 WBC (Bld) 14.8 % Low 19-41 [facility] Comment on above: Performed By: #### L 100.0100 #### [facility] [address] [place], [address] MCH (RBC) [Entitic mass] 28.5 pg Normal 27.0-32.0 [facility] Comment on above: Performed By: #### L 100.0100 #### [facility] [address] [place], [address] MCHC (RBC) [Mass/Vol] 31.8 g/dL Low 32-36 [facility] Comment on above: Performed By: #### L 100.0100 #### [facility] [address] [place], [address] MCV (RBC) [Entitic vol] 89.6 fL Normal 81-99 [facility] Comment on above: Performed By: #### L 100.0100 #### [facility] [address] [place], [address] Monocytes/100 WBC (Bld) 14.3 % High 0-10 [facility] Comment on above: Performed By: #### L 100.0100 #### [facility] [address] [place], [address] Neutrophils/100 WBC (Bld) 69.0 % Normal 47-70 [facility] Comment on above: Performed By: #### L 100.0100 #### [facility] [address] [place], [address] Nucleated RBC (Bld) [#/Vol] 0 10*3/uL Normal 0-5 [facility] Comment on above: Performed By: #### L 100.0100 #### [facility] [address] [place], [address] Platelet mean volume (Bld) [Entitic vol] 11.4 fL Normal 6.2-12.0 [facility] Comment on above: Performed By: #### L 100.0100 #### [facility] [address] [place], [address] Platelets (Bld) [#/Vol] 296 10*3/uL Normal 150-450 [facility] Comment on above: Performed By: #### L 100.0100 #### [facility] [address] [place], [address] RBC (Bld) [#/Vol] 3.09 10*6/uL Low 4.2-5.4 [facility] Comment on above: Performed By: #### L 100.0100 #### [facility] [address] [place], [address] RDW SD 56.9 fl High 35.1-43.9 [facility] Comment on above: Performed By: #### L 100.0100 #### [facility] [address] [place], [address] WBC (Bld) [#/Vol] 6.3 10*3/uL Normal 4.4-11.0 [facility] Comment on above: Performed By: #### L 100.0100 #### [facility] [address] [place], [address] Gastroenterology Visit Repor ton 09-03-2023 Gastroenterology Visit Report [facility] Gastroenterology [address] [place] [address] OFFICE VISIT Date of Service: 09/03/23 MR#: [id number] Acct: [id number] Name: HAYDEE BUSTAMANTE Rep #: [id number] : 1945 Provider: MARY ANN Wilks Age/Sex: 78/F Location[place] [facility] [place]: Signed Intake Vital Signs 08/17/23 11:11 09/03/23 14:01 Height 5 ft 3 in Weight: 136 lb 6 oz BP 114/67 Pulse 86 Pulse Oximetry (%) 96 Intake Visit Reasons: Hosp F/U Chief Complaint: lower extremity cellulitis Allergies Penicillins Allergy (Severe, Verified 08/13/23 14:22) Anaphylaxis Have you fallen in the past year?: Yes Nurse's Note: F/U appt from ED on 08.13.23 for GI bleed. Pt states she is feeling good. Has swelling in lower extremities. Pt takes Pantoprazole 40mg, gabapentin 300mg, and suralfate 1gr. PFSH Medical History Severe aortic stenosis Thrombocytopenia Adult failure to thrive Leg edema Rheumatoid arthritis COPD (chronic obstructive pulmonary disease) Former smoker DVT (deep venous thrombosis) Pulmonary embolism Colitis COVID-19 Histoplasmosis Surgical History History of embolic filter insertion Hx of foot surgery Social History household members: none Smoking Status: Former smoker alcohol intake: never substance use type: does not use HPI HPI Chief Complaint: lower extremity cellulitis Details: HAYDEE BUSTAMANTE, is a 78 F who presents to the office today for hospital f/u. Patient was hospitalized from 08/13/23-08/18/23 for GI bleed. She presented to the ED initially on 08/12 for blood in her stool and a fall. Her hemoglobin in the ED was 5.4 and she received 2 units of blood. INR was also elevated at 4.8 and vitamin K given. Dr. Orellana performed EGD on 08/13 and found Oozing duodenal ulcer with pigmented material. Treated with a heater probe. Biopsied. She had no other signs of bleeding until 08/15 when she had a maroon colored stool. Dr. Orellana did another EGD and found Normal esophagus.Small hiatal hernia. 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 Treated with a heater probe. Office visit today (09/03/23), patient is doing well and has no GI concerns. She has been taking pantoprazole 40 mg BID and sucralfate 1g BID AC. She does admit to some painful lower extremity edema that she is seeing cardiology for. She denies hematemesis, dyspepsia, melena, diarrhea or constipation. She is taking her warfarin at night. 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 ROS Const Constitutional: No anorexia, fatigue, fever(s), weight change or sleep problems Eyes Eyes: No change in vision ENT ENT: No abnormal hearing, difficulty swallowing, mouth lesions, tongue swelling or throat swelling Resp Respiratory: No cough or shortness of breath Cardio Cardiology: No chest pain at rest, chest pain with exertion, shortness of breath or dyspnea on exertion Gastro GI: No difficulty swallowing Genitourinary-Female: No difficulty urinating or burning urination Musc Musculoskeletal: Positive for joint pain, joint swelling and Arthritis Skin Skin: No hair loss in leg, yellowing of the eye, itchy eyes, rash, skin ulcer or skin swelling Neuro Neurology: No abnormal hearing, abnormal movements, confusion, unsteady gait/balance or memory loss Psych Psychiatric: No anxiety, No confusion and No memory loss Endo Endocrine: No fatigue or weight change Aller/Imm Allergy/Immunologic: No itchy eyes, throat swelling or tongue swelling Jayme/Lymp Hematologic/Lymphatic: Positive for easy bruising Exam Const General: cooperative and comfortable Nutritional Appearance: average body habitus and well nourished HENMT Head: normal to inspection Ears: hearing grossly normal bilaterally Nose: external nose normal Face and sinus: normal facial exam Mouth: oral mucosae normal Throat: posterior oropharynx normal Eyes General: appearance normal, both eyes and all related structures Neck Neck: normal visual inspection Chest Chest palpation inspection: normal inspection of the chest and normal palpation of entire chest wall Resp Effort Inspection: normal respiratory effort Auscultation: Bilateral: Clear to Auscultation Cardio Palpation: normal PMI Rate: regular rate Rhythm: regular rhythm GI Inspection: normal to inspection Auscultation: normal bowel sounds Percussion: normal to percussion Palpation: no hepatosplenomegaly Skin General: no rashes or lesions noted Neuro General: patient alert Extrem General: normal to inspection and edema Ps (more content not included)... Normal [facility] HISTOPLASMA AB CFon 09-02-19 24 H. capsulatum mycelial phase Ab CF (S) [Titer] <1:8 [facility] Comment on above: INTERPRETIVE INFORMA TION: Histoplasma Mycelia Antibodies by CF A titer of 1:8 or greater is generally considered presumptive evidence of histoplasmosis. A titer of 1:32 or greater or rising titers indicate strong presumptive evidence of histoplasmosis. Cross reactions, usually at lower titers, may occur with other fungal diseases. H. capsulatum yeast phase Ab CF (S) [Titer] <1:8 [facility] Comment on above: INTERPRETIVE INFORMA TION: Histoplasma Yeast Antibodies by CF A titer of 1:8 or greater is generally considered presumptive evidence of histoplasmosis. A titer of 1:32 or greater or rising titers indicate strong presumptive evidence of histoplasmosis. Cross reactions, usually at lower titers, may occur with other fungal diseases. Performed By: [employer] [address] [place] [id number] [employer] Manager: Ernie Issa MD, PhD CLIA Number: [id number] [facility] HISTOPLASMA AG URINEOrdered By: Maricarmen Call on 08-31-2023 H. capsulatum Ag (U) [Mass/Vol] 0.4 ng/mL High NINF - 0.2 ng/mL [facility] H. capsulatum Ag IA Ql (U) Positive Abnormal Negative [facility] Comment on above: Histoplasma galactom adilene antigen, urine test is used as an aid in diagnosing histoplasmosis. A negative result cannot rule out infection. Low positive results may at times be due to cross-reactivity with Blastomyces, Talaromyces marneffei, Paracoccidioides, and some Wendy species. Clinical radiological, and epidemiological correlation is required. Interpretation and review of laboratory results Abnormal [facility] ITRACONAZOLE BLOODOrdered By : Elvira Cronin on 08-31-2023 Hydroxyitraconazole 2.4 ug/mL [facility] Comment on above: Ranges are based on trough draw at steady-state concentration. Test performed by LC-MS/MS. Ranges are based off the Itraconazole trough levels alone, not combined with hydroxyitraconazole. Therapeutic: >1.0 ug/mL Prophylaxis: >0.4 ug/mL Toxic: >3.0 ug/mL (Toxic values will not be called) The therapeutic, prophylactic, and toxic ranges were based on the 2016 Infectious Disease Society of [place]'s (IDSA) Clinical Practice Guidelines for the Management of Aspergillosis and Candidiasis and consultation from [facility]'s Department of Infectious Disease. Reference ranges and high/low indicator flags are provided as general guidelines only. The treating physician must determine appropriate target levels/dosing based on the specific clinical situation. This test was developed and its performance characteristics determined by [facility]'s [facility] Pathology and Laboratory Medicine [place] ([facility]). It has not been cleared or approved by the FDA. [facility] is regulated under CLIA as qualified to perform high-complexity testing. This test is used for clinical purposes. It should not be regarded as investigational or for research. Itraconazole 1.3 ug/mL 0.6 - 2.9 ug/mL [facility] CNOVon 08-27-2023 CNOV Office Visit (ANGIE ) HAYDEE BUSTAMANTE ([id number]) 1945 F T Date Time Provider Department 08/27/23 8:20 AM WILLIAM MESSINA During your visit today, we recorded the following information about you: Pulse Blood pressure Weight Height 81/minute 116/68 58.1 kg 1.6 m William Messina DO 08/27/2023 2:47 PM Signed [facility] OUTPATIENT VISIT DATE August 27, 2023 PRIMARY CARE PHYSICIAN: Claudine Durán [address] [place] [address] HISTORY OF PRESENT ILLNESS: Ms. Bustamante is a 78 year old female. The patient returns for follow-up second history of known , MS, hypertension and previous DVT on long-term oral anticoagulation with warfarin. Since we have last seen her, she has developed lower extremity edema which may be multifactorial as she was hospitalized with a Perforated viscus earlier in the year. Her cholesterol medication was discontinued due to elevated liver enzymes. She states her edema is gradually improving. Recent BNP was normal. There are 2 recent echoes within couple weeks to 1 another. The earlier of which shows a moderate pericardial effusion. PLAN AND RECOMMENDATIONS: Patient has exertional symptoms along with known valvular heart disease and recent pericardial effusion. This point in time we should update an echocardiogram to reevaluate heart structure and function particularly the valves as well as more importantly pericardial effusion. We will update a BNP and BMP in a couple weeks time with her diuresis and resee her shortly thereafter. Dietary and lifestyle modification was reemphasized to facilitate risk factor reduction and heart failure prevention. Vitals: BP 116/68 Pulse 81 Ht 160 cm (5' 3") Wt 58.1 kg (128 lb) SpO2 99% BMI 22.67 kg/m? Physical Exam Vitals reviewed. Constitutional: General: She is not in acute distress. Appearance: Normal appearance. She is well-developed. HENT: Head: Normocephalic and atraumatic. Nose: Nose normal. Eyes: General: No scleral icterus. Right eye: No discharge. Left eye: No discharge. Pupils: Pupils are equal, round, and reactive to light. Neck: Thyroid: No thyromegaly. Vascular: No carotid bruit or JVD. Cardiovascular: Rate and Rhythm: Normal rate and regular rhythm. Heart sounds: Murmur heard. Crescendo decrescendo systolic murmur is present with a grade of 3/6. No friction rub. No gallop. Pulmonary: Effort: Pulmonary effort is normal. No respiratory distress. Breath sounds: Normal breath sounds. No wheezing or rales. Abdominal: General: Bowel sounds are normal. Palpations: Abdomen is soft. Musculoskeletal: General: Normal range of motion. Cervical back: Normal range of motion and neck supple. Right lower le+ Edema present. Left lower le+ Edema present. Skin: General: Skin is warm and dry. Capillary Refill: Capillary refill takes less than 2 seconds. Coloration: Skin is not pale. Neurological: Mental [...] chest tightness and shortness of breath. Cardiovascular: Positive for leg swelling. Negative for chest pain and palpitations. Gastrointestinal: Negative for abdominal pain, blood in stool, nausea and vomiting. Endocrine: Negative for cold intolerance and heat intolerance. Genitourinary: Negative for frequency and hematuria. Musculoskeletal: Negative for arthralgias and gait problem. Skin: Negative for color change, pallor and rash. Allergic/Immunologic: Negative for immunocompromised state. Neurological: Positive for weakness. Negative for dizziness, syncope, light-headedness and headaches. Hematological: Negative for adenopathy. Does not bruise/bleed easily. Psychiatric/Behavioral: Negative for confusion. The patient is not nervous/anxious. PAST MEDICAL HISTORY Diagnosis Date Anemia Bone marrow involvement with histoplasmosis Bronchiectasis (HCC) COPD (chronic obstructive pulmonary disease) (HCC) Disseminated histoplasmosis Colitis, immunosuppression, 01/2018. Diverticulosis of colon (without mention of hemorrhage) Diverticulosis DVT, recurrent, lower extremity, acute ([facility]) 12/10/2014 Esophageal reflux Hiatal hernia 02/25/2018 Hypertension Lung nodule Personal history of unspecified urinary disorder 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 rheumatoid factor ([facility]) 03/07/2015 Dr. Hurley ([facility]) (more content not included)... [facility] 08-27-2023 [facility] Telephone ([place]) HAYDEE BUSTAMANTE ([id number]) 1945 F T Date Time Provider Department 08/27/23 WILLIAM MESSINA During your visit today, we recorded the following information about you: Ashley Rahman MA 08/27/2023 10:00 AM Signed Please call Pt to schedule Limited Echo prior to next OV with Bibi Alegria. Elvira Jordan 08/28/2023 9:25 AM Signed First attempt at contacting patient, left VM to schedule echo Allergies As of Date: 08/27/2023 Noted Allergy Reaction PENICILLINS 01/04/2005 4 - Hives Date Reviewed: 08/27/2023 Reviewed by: William Messina DO - Fully Assessed Reason for Visit: Appointment [[id number]] Prescriptions as of 08/28/2023 - furosemide (LASIX) 20 mg tablet Take 1-2 tablets by mouth two times a day as needed. Take daily for x5 days and then can use as needed daily after that for swelling. - itraconazole (SPORANOX) 10 mg/mL solution Take 20 mL by mouth two times a day. - predniSONE (DELTASONE) 20 mg tablet 1 tablet three times a day for 3 days, then 2 times a day for 3 days, the one daily for 3 days. - potassium chloride ER (KLOR-CON M20) 20 mEq tablet Take 1 tablet by mouth two times a day. - tiotropium bromide (SPIRIVA RESPIMAT) 2.5 mcg/actuation inhaler Inhale 2 Puffs as instructed once daily. Inhale two puffs once daily. - warfarin (COUMADIN) 5 mg tablet Take 1 tablet by mouth once daily. or as directed - naproxen (NAPROSYN) 500 mg tablet Take 1 tablet by mouth two times a day as needed. Take with food - gabapentin (NEURONTIN) 300 mg capsule Take 1 capsule by mouth two times a day. - fluticasone-salmeterol (WIXELA INHUB) 250-50 mcg/dose inhaler Inhale 1 Puff as instructed two times a day. - albuterol HFA (PROAIR HFA) 90 mcg/actuation inhaler Inhale 2 Puffs as instructed every 4 hours as needed. - loperamide (IMODIUM) 2 mg cap(s) Take 1 capsule by mouth three times a day as needed for diarrhea for up to 7 days. - Mucus Clearing Device (QUAKE VIBRATORY PEP) renetta Provide 1 device - warfarin (COUMADIN) 5 mg tablet take 1 AND 1/2 tablets by mouth once daily ON SUNDAY, SUNDAY, SUNDAY, SUNDAY AND SUNDAY and 1 tablet by mouth once daily ON SUNDAY AND SUNDAY - FOLIC ACID ORAL Take by mouth. - fluticasone (FLONASE) 50 mcg/actuation nasal spray Use 1 [place] in each nostril once daily. - pantoprazole DR (PROTONIX) 40 mg tablet Take 1 tablet by mouth once daily. - vit A,C,J-Dvhr-Dwuxnp (OCUVITE PRESERVISION) 2,148 mcg-113 mg-45 mg-17.4mg tab Take 2 tablets by mouth daily with breakfast. - leucovorin (LEUCOVORIN) 15 mg tablet Take [...] one(1) tablet daily. Facility-Administered Medications as of 08/28/2023 - perflutren lipid microspheres 1.3 mL in NaCl (PF) 0.9% 10 mL injection (DEFINITY) - sodium chloride 0.9 % (flush) 10 mL (BD POSIFLUSH) Meds Comments as of 03/05/2018: 03/05/18 The medications are managed by this patient by: PATIENT Muna Harris ([place] [facility]) [facility] for fpc medications. Problem List As Of Date 08/27/2023 Noted Resolved ESOPHAGEAL REFLUX [K21.9] 03/06/2005 MERALGIA PARESTHETICA [G57.10] 03/06/2005 VOICE DISTURBANCE NEC [R49.8] 03/06/2005 Pain in joint, lower leg [M25.569] 10/18/2006 03/02/2018 Embolism and thrombosis (HCC) [I74.9] 11/23/2006 07/07/2021 ARTHROPATHY NOS-UNSPEC [M12.9] 12/05/2006 Enthesopathy of hip region [M76.899] 01/04/2009 07/07/2021 Elevated Liver Enzymes [R74.8] 04/01/2009 Rheumatoid arthritis (HCC) [M06.9] 04/01/2009 03/07/2015 snf current use of anticoagulant therapy *04/01/2009 Hypertension [I10] 04/13/2010 03/07/2015 Right sided sciatica [M54.31] 03/20/2011 03/30/2014 HNP (herniated nucleus pulposus), lumbar [M51.2*03/20/2011 Atrophic vaginitis [N95.2] 03/06/2013 Ganglion cyst [M67.40] 08/17/2014 DVT, recurrent, lower extremity, acute (HCC) [I*12/10/2014 03/03/2018 Essential hypertension [I10] 03/07/2015 Rheumatoid arthritis (HCC) [M06.9] 03/07/2015 Pain in right hip [M25.551] 05/05/2016 Low back pain with right-sided sciatica [M54.41]05/05/2016 History of recurrent deep vein thrombosis (DVT)*10/29/2016 DDD (degenerative disc disease), lumbar [M51.36]07/30/2017 Spondylolisthesis of lumbar region [M43.16] 07/30/2017 Iron deficiency anemia due to chronic blood los*01/24/2018 Disseminated histoplasmosis [B39.9] 03/02/2018 Murmur [R01.1] 03/08/2018 08/05/2018 Anemia [D64.9] 03/08/2018 04/26/2018 Aortic valve stenosis [I35.0 (more content not included)... Normal [facility] CBC W Auto Differential pane l (Bld)on 08-22-2023 Basophils (Bld) [#/Vol] 0.04 10*3/uL [facility] Basophils/100 WBC (Bld) 0.5 % C [facility] Differential cell count method Nom (Bld) Auto [facility] Eosinophils (Bld) [#/Vol] 0.08 10*3/uL [facility] Eosinophils/100 WBC (Bld) 1.0 % [facility] Erythrocyte distribution width (RBC) [Ratio] 17.4 % High 11.5 - 15.0 % [facility] Hematocrit (Bld) [Volume fraction] 28.5 % Low 36.0 - 46.0 % [facility] Hemoglobin (Bld) [Mass/Vol] 9.1 g/dL Low 11.5 - 15.5 g/dL [facility] Immature granulocytes (Bld) [#/Vol] 0.04 10*3/uL [facility] Immature granulocytes/100 WBC (Bld) 0.5 % [facility] Interpretation and review of laboratory results Abnormal [facility] Lymphocytes (Bld) [#/Vol] 0.93 10*3/uL Low [facility] Lymphocytes/100 WBC (Bld) 11.6 % [facility] MCH (RBC) [Entitic mass] 29.0 pg 26.0 - 34.0 pg [facility] MCHC (RBC) [Mass/Vol] 31.9 g/dL 30.5 - 36.0 g/dL [facility] MCV (RBC) [Entitic vol] 90.8 fL 80.0 - 100.0 fL [facility] Monocytes (Bld) [#/Vol] 0.72 10*3/uL [facility] Monocytes/100 WBC (Bld) 9.0 % [facility] Neutrophils (Bld) [#/Vol] 6.19 10*3/uL [facility] Neutrophils/100 WBC (Bld) 77.4 % [facility] Nucleated RBC (Bld) [#/Vol] [facility] Nucleated RBC/100 WBC (Bld) [Ratio] 0.0 % /100 WBC [facility] Platelet mean volume (Bld) [Entitic vol] 10.8 fL 9.0 - 12.7 fL [facility] Platelets (Bld) [#/Vol] 293 10*3/uL [facility] RBC (Bld) [#/Vol] 3.14 10*6/uL Low 3.90 - 5.20 m/uL [facility] WBC (Bld) [#/Vol] 8.00 10*3/uL [facility] Comprehensive metabolic 2000 panelOrdered By: Adri Cabrera on 08-22-2023 Albumin [Mass/Vol] 3.2 g/dL Low 3.9 - 4.9 g/dL [facility] ALP [Catalytic activity/Vol] 97 U/L 34 - 123 U/L [facility] ALT [Catalytic activity/Vol] 20 U/L 7 - 38 U/L [facility] Anion gap [Moles/Vol] 10 mmol/L 8 - 15 mmol/L [facility] AST [Catalytic activity/Vol] 25 U/L 13 - 35 U/L [facility] Bilirubin [Mass/Vol] 0.4 mg/dL 0.2 - 1 .3 mg/dL [facility] Calcium [Mass/Vol] 8.5 mg/dL 8.5 - 10. 2 mg/dL [facility] Chloride [Moles/Vol] 103 mmol/L 98 - 10 7 mmol/L [facility] CO2 [Moles/Vol] 26 mmol/L 22 - 30 mmol/L [facility] Creatinine [Mass/Vol] 0.55 mg/dL Low 0.58 - 0.96 mg/dL [facility] GFR/1.73 sq M.predicted among non-blacks MDRD (S/P/Bld) [Vol rate/Area] 95 mL/min/{1.73_m2} - PINF [facility] Comment on above: Estimated Glomerular Filtration Rate (eGFR) is calculated using the 2020 CKD-EPI creatinine equation. This equation utilizes serum creatinine, sex, and age as parameters. The creatinine assay has traceable calibration to isotope dilution-mass spectrometry. Refer to KDIGO guidelines for clinical interpretation. In patients with unstable renal function, e.g. those with acute kidney injury, the eGFR may not accurately reflect actual GFR. Glucose [Mass/Vol] 82 mg/dL 74 - 99 mg/dL [facility] Comment on above: The [place] Diab[employer] s Association (ADA) provides guidance for cutoff values for fasting glucose and random glucose. The ADA defines fasting as no caloric intake for at least 8 hours. Fasting plasma glucose results between 100 to 125 mg/dL indicate increased risk for diabetes (prediabetes). Fasting plasma glucose results greater than or equal to 126 mg/dL meet the criteria for diagnosis of diabetes. In the absence of unequivocal hyperglycemia, results should be confirmed by repeat testing. In a patient with classic symptoms of hyperglycemia or hyperglycemic crisis, random plasma glucose results greater than or equal to 200 mg/dL meet the criteria for diagnosis of diabetes. Reference: Standards of Medical Care in Diabetes 2016, [place] [employer]. Diabetes Care. 2016.39(Suppl 1). Interpretation and review of laboratory results Abnormal [facility] Potassium [Moles/Vol] 3.3 mmol/L Low 3.7 - 5.1 mmol/L [facility] Protein [Mass/Vol] 5.8 g/dL Low 6.3 - 8.0 g/dL [facility] Sodium [Moles/Vol] 139 mmol/L 136 - 144 mmol/L [facility] Urea nitrogen [Mass/Vol] 16 mg/dL 7 - 21 mg/dL [facility] INR (POC)on 08-22-2023 INR Coag (PPP) [Relative time] 1.1 {INR} 0.8 - 1.2 [facility] Internal Quality Check Acceptable [place] Hospital Location:[address], [id number] [place] [address] POINT OF CARE [facility] No Panel InformationOrdered By: Zaynab Pina on 05-31-2023 29.8 SECONDS 11.7-14.9 [facility] 2.9 [facility] Absolute lymphocyte countOrd ered By: Zaynab Pina on 05-29-2023 Lymphocytes Auto (Unsp spec) [#/Vol] 1.06 10*3/uL 0.83-4.51 [facility] Automated lymphocyte count a s percentage of total leukocytesOrdered By: Zaynab Pina on 05-29-2023 Lymphocytes/100 WBC Auto (Unsp spec) 17.1 % 19-41 [facility] Basophil percentageOrdered B y: Zaynab Pina on 05-29-2023 Basophil percentage 9.8 g/dL 12.0-15.0 [facility] Basophil percentage 80 mg/dL 74-106 [facility] Basophil percentage 139 mmol/L 136-145 [facility] Basophil percentage 3.4 mmol/L 3.5-5.1 [facility] Basophil percentage 106 mmol/L 98-107 [facility] Basophils (Bld) [#/Vol] 6.2 10*3/uL 4.4-11.0 [facility] Basophils (Bld) [#/Vol] 4.1 10*3/uL 2.0-7.7 [facility] Basophils/100 WBC (Bld) 66.4 % 47-70 [facility] Basophils/100 WBC (Bld) 12.3 % 0-10 [facility] Basophils/100 WBC (Bld) 3.2 % 0-5 [facility] Basophils/100 WBC (Bld) 0.5 % 0-1 [facility] Determination of erythrocyte mean corpuscular volume (MCV)Ordered By: Zaynab Pina on 05-29-2023 MCV (RBC) [Entitic vol] 81.1 fL 81-99 [facility] Erythrocyte distribution wid th ratioOrdered By: Claudiotacomajoesph Pina on 05-29-2023 Erythrocyte distribution width (RBC) [Ratio] 17.6 % 11.6-14.6 [facility] Erythrocyte distribution wid th standard deviationOrdered By: Zaynab Pina on 05-29-2023 Erythrocyte distribution width (RBC) [Entitic vol] 52.1 fL 35.1-43.9 [facility] Hematocrit Auto (Bld) [Volum e fraction]Ordered By: Claudiotacomajoesph Pina on 05-29-2023 Hematocrit (Bld) [Volume fraction] 30.8 % 37-47 [facility] Immature granulocytes/100 WB C Auto (Bld)Ordered By: Zaynab Pina on 05-29-2023 Immature granulocytes/100 WBC (Bld) 0.500 % 0.0-0.9 [facility] No Panel InformationOrdered By: elmertacomajoesph Cherrymarily on 05-29-2023 25.8 pg 27.0-32.0 [facility] 31.8 g/dL 32-36 [facility] 194 K/mm3 150-450 [facility] 11.0 fl 6.2-12.0 [facility] 0 % 0-5 [facility] 116 mL/min >60 [facility] 141 mL/min >60 [facility] 29.6 RATIO 10-20 [facility] 28.0 mmol/L 21.0-32.0 [facility] RBC Auto (Bld) [#/Vol]Ordere d By: Zaynab Pina on 05-29-2023 RBC (Bld) [#/Vol] 3.80 10*6/uL 4.2-5.4 [facility] Serum or plasma calcium monica urement (mass/volume)Ordered By: Zaynab Pina on 05-29-2023 Calcium [Mass/Vol] 8.4 mg/dL 8.5-10.1 [facility] Serum or plasma creatinine m easurement (mass/volume)Ordered By: Zaynab Pina on 05-29-2023 Creatinine [Mass/Vol] 0.54 mg/dL 0.55-1.02 [facility] Serum or plasma urea nitroge n measurement (mass/volume)Ordered By: Zaynab Pina on 05-29-2023 Urea nitrogen [Mass/Vol] 16 mg/dL 7-18 [facility] Thin prep Papanicolaou smear with manual screeningOrdered By: Zaynab Pina on 05-29-2023 Thin prep Papanicolaou smear with manual screening 5 5-15 [facility] No Panel InformationOrdered By: Zaynab Pina on 05-28-2023 30.6 SECONDS 11.7-14.9 [facility] 3.0 [facility] Capillary blood internationa l normalized ratio (INR)Ordered By: Zaynab Pina on 05-24-2023 INR Coag (BldC) [Relative time] 1.9 [facility] Whole blood prothrombin time Ordered By: Zaynab Pina on 05-24-2023 PT Coag (Bld) [Time] 20.2 s 11.7-14.9 [facility] Capillary blood internationa l normalized ratio (INR)Ordered By: Zaynab Pina on 05-21-2023 INR Coag (BldC) [Relative time] 2.8 [facility] Whole blood prothrombin time Ordered By: Zaynab Pina on 05-21-2023 PT Coag (Bld) [Time] 28.8 s 11.7-14.9 [facility] Capillary blood internationa l normalized ratio (INR)Ordered By: Zaynab Pina on 05-17-2023 INR Coag (BldC) [Relative time] 3.0 [facility] Whole blood prothrombin time Ordered By: Zaynab Pina on 05-17-2023 PT Coag (Bld) [Time] 30.2 s 11.7-14.9 [facility] Absolute lymphocyte countOrd ered By: Zaynab Pina on 05-15-2023 Lymphocytes Auto (Unsp spec) [#/Vol] 1.62 10*3/uL 0.83-4.51 [facility] Automated lymphocyte count a s percentage of total leukocytesOrdered By: Zaynab Pina on 05-15-2023 Lymphocytes/100 WBC Auto (Unsp spec) 18.8 % 19-41 [facility] Basophil percentageOrdered B y: Zaynab Pina on 05-15-2023 Basophil percentage 10.0 g/dL 12.0-15.0 [facility] Basophil percentage 71 mg/dL 74-106 [facility] Basophil percentage 137 mmol/L 136-145 [facility] Basophil percentage 4.1 mmol/L 3.5-5.1 [facility] Basophil percentage 103 mmol/L 98-107 [facility] Basophils (Bld) [#/Vol] 8.6 10*3/uL 4.4-11.0 [facility] Basophils (Bld) [#/Vol] 5.6 10*3/uL 2.0-7.7 [facility] Basophils/100 WBC (Bld) 64.8 % 47-70 [facility] Basophils/100 WBC (Bld) 11.8 % 0-10 [facility] Basophils/100 WBC (Bld) 3.3 % 0-5 [facility] Basophils/100 WBC (Bld) 0.7 % 0-1 [facility] Determination of erythrocyte mean corpuscular volume (MCV)Ordered By: Zaynab Pina on 05-15-2023 MCV (RBC) [Entitic vol] 82.7 fL 81-99 [facility] Erythrocyte distribution wid th ratioOrdered By: Zaynab Pina on 05-15-2023 Erythrocyte distribution width (RBC) [Ratio] 18.1 % 11.6-14.6 [facility] Erythrocyte distribution wid th standard deviationOrdered By: Zaynab Pina on 05-15-2023 Erythrocyte distribution width (RBC) [Entitic vol] 54.5 fL 35.1-43.9 [facility] Hematocrit Auto (Bld) [Volum e fraction]Ordered By: Zaynab Pina on 05-15-2023 Hematocrit (Bld) [Volume fraction] 32.0 % 37-47 [facility] Immature granulocytes/100 WB C Auto (Bld)Ordered By: Zaynab Pina on 05-15-2023 Immature granulocytes/100 WBC (Bld) 0.600 % 0.0-0.9 [facility] No Panel InformationOrdered By: Zaynab Pina on 05-15-2023 25.8 pg 27.0-32.0 [facility] 31.3 g/dL 32-36 [facility] 322 K/mm3 150-450 [facility] 10.2 fl 6.2-12.0 [facility] 0 % 0-5 [facility] 96 mL/min >60 [facility] 117 mL/min >60 [facility] 20.4 RATIO 10-20 [facility] 27.0 mmol/L 21.0-32.0 [facility] RBC Auto (Bld) [#/Vol]Ordere d By: Zaynab Pina on 05-15-2023 RBC (Bld) [#/Vol] 3.87 10*6/uL 4.2-5.4 [facility] Serum or plasma calcium monica urement (mass/volume)Ordered By: Zaynab Pina on 05-15-2023 Calcium [Mass/Vol] 9.0 mg/dL 8.5-10.1 [facility] Serum or plasma creatinine m easurement (mass/volume)Ordered By: Zaynab Pina on 05-15-2023 Creatinine [Mass/Vol] 0.64 mg/dL 0.55-1.02 [facility] Serum or plasma urea nitroge n measurement (mass/volume)Ordered By: Zaynab Pina on 05-15-2023 Urea nitrogen [Mass/Vol] 13 mg/dL 09-05 [facility] Thin prep Papanicolaou smear with manual screeningOrdered By: Zaynab Pina on 05-15-2023 Thin prep Papanicolaou smear with manual screening 7 5- [facility] Capillary blood internationa l normalized ratio (INR)Ordered By: Zaynab Pina on 05-14-2023 INR Coag (BldC) [Relative time] 3.0 [facility] Comment on above: Critical Value > 4.0 Whole blood prothrombin time Ordered By: Zaynab Pina on 05-14-2023 PT Coag (Bld) [Time] 30.4 s 11.7-14.9 [facility] Capillary blood internationa l normalized ratio (INR)Ordered By: Zaynab Pina on 05-10-2023 INR Coag (BldC) [Relative time] 2.8 [facility] Comment on above: Critical Value > 4.0 Whole blood prothrombin time Ordered By: Zaynab Pina on 05-10-2023 PT Coag (Bld) [Time] 28.1 s 11.7-14.9 [facility] Capillary blood internationa l normalized ratio (INR)Ordered By: Zaynab Pina on 05-07-2023 INR Coag (BldC) [Relative time] 2.2 [facility] Comment on above: Critical Value > 4.0 Whole blood prothrombin time Ordered By: Zaynab Pina on 05-07-2023 PT Coag (Bld) [Time] 24.4 s 11.7-14.9 [facility] Laboratory - CoagulationOrde red By: Zaynab Pina on 05-03-2023 INR Coag (Bld) [Relative time] 2.1 {INR} [facility] PT Coag (PPP) [Time] 23.2 s 11.7-14.9 [facility] No Panel InformationOrdered By: Zaynab Pina on 05-03-2023 23.2 SECONDS 11.7-14.9 [facility] 2.1 [facility] Absolute lymphocyte countOrd ered By: Zaynab Pina on 05-01-2023 Lymphocytes Auto (Unsp spec) [#/Vol] 1.74 10*3/uL 0.83-4.51 [facility] Automated lymphocyte count a s percentage of total leukocytesOrdered By: Zaynab Pina on 05-01-2023 Lymphocytes/100 WBC Auto (Unsp spec) 23.1 % 19-41 [facility] Basophil percentageOrdered B y: Zaynab Pina on 05-01-2023 Basophil percentage 10.7 g/dL 12.0-15.0 [facility] Basophil percentage 86 mg/dL 74-106 [facility] Basophil percentage 5.8 g/dL 6.4-8.2 [facility] Basophil percentage 0.60 mg/dL 0.20-1.00 [facility] Basophil percentage 137 mmol/L 136-145 [facility] Basophil percentage 3.7 mmol/L 3.5-5.1 [facility] Basophil percentage 105 mmol/L 98-107 [facility] Basophils (Bld) [#/Vol] 7.5 10*3/uL 4.4-11.0 [facility] Basophils (Bld) [#/Vol] 4.7 10*3/uL 2.0-7.7 [facility] Basophils/100 WBC (Bld) 0.7 % 0-1 [facility] Basophils/100 WBC (Bld) 62.4 % 47-70 [facility] Basophils/100 WBC (Bld) 12.0 % 0-10 [facility] Basophils/100 WBC (Bld) 1.3 % 0-5 [facility] Bilirubin [Mass/Vol] 0.60 mg/dL 0.20-1.00 [facility] Comment on above: For patients on eltr ombopag therapy, use of Dimension [place] TBIL is not recommended. Chloride [Moles/Vol] 105 mmol/L 98-107 [facility] Eosinophils/100 WBC (Bld) 1.3 % 0-5 [facility] Glucose [Mass/Vol] 86 mg/dL 74-106 [facility] Hemoglobin (Bld) [Mass/Vol] 10.7 g/dL 12.0-15.0 [facility] Monocytes/100 WBC (Bld) 12.0 % 0-10 [facility] Neutrophils (Bld) [#/Vol] 4.7 10*3/uL 2.0-7.7 [facility] Neutrophils/100 WBC (Bld) 62.4 % 47-70 [facility] Potassium [Moles/Vol] 3.7 mmol/L 3.5-5.1 [facility] Protein [Mass/Vol] 5.8 g/dL 6.4-8.2 [facility] Sodium [Moles/Vol] 137 mmol/L 136-145 [facility] WBC (Bld) [#/Vol] 7.5 10*3/uL 4.4-11.0 [facility] Determination of erythrocyte mean corpuscular volume (MCV)Ordered By: Zaynab Pina on 05-01-2023 MCV (RBC) [Entitic vol] 84.2 fL 81-99 [facility] Erythrocyte distribution wid th ratioOrdered By: Claudiotacomajoesph Pina on 05-01-2023 Erythrocyte distribution width (RBC) [Ratio] 19.4 % 11.6-14.6 [facility] Erythrocyte distribution wid th standard deviationOrdered By: [facility] Cherrymarily on 05-01-2023 Erythrocyte distribution width (RBC) [Entitic vol] 60.2 fL 35.1-43.9 [facility] Hematocrit Auto (Bld) [Volum e fraction]Ordered By: Zaynab Pina on 05-01-2023 Hematocrit (Bld) [Volume fraction] 33.1 % 37-47 [facility] Immature granulocytes/100 WB C Auto (Bld)Ordered By: Zaynab Pina on 05-01-2023 Immature granulocytes/100 WBC (Bld) 0.500 % 0.0-0.9 [facility] Comment on above: IG% - Immature Granu locytes (promyelocytes, myelocytes and metamyelocytes) > 1% indicates that a LEFT SHIFT is Present. Laboratory - Chemistry and C hemistry - challengeOrdered By: Zaynab Pina on 05-01-2023 Albumin/Globulin [Mass ratio] 0.9 {ratio} 0.9-2.4 [facility] ALP [Catalytic activity/Vol] 93 U/L 45-117 [facility] ALT [Catalytic activity/Vol] 35 U/L 13-56 [facility] CO2 [Moles/Vol] 27.0 mmol/L 21.0-32.0 [facility] Globulin (S) [Mass/Vol] 3.1 g/dL 2.2-4.2 [facility] Urea nitrogen/Creatinine [Mass ratio] 56.7 mg/mg 10-20 [facility] Laboratory - Hematology and Cell countsOrdered By: Zaynab Pina on 05-01-2023 MCH (RBC) [Entitic mass] 27.2 pg 27.0-32.0 [facility] MCHC (RBC) [Mass/Vol] 32.3 g/dL 32-36 [facility] Nucleated RBC/100 WBC (Bld) [Ratio] 0 % 0-5 [facility] Platelet mean volume (Bld) [Entitic vol] 10.2 fL 6.2-12.0 [facility] Platelets (Bld) [#/Vol] 223 10*3/uL 150-450 [facility] No Panel InformationOrdered By: Zaynab Pina on 05-01-2023 Estimated GFR (MDRD) Amer 163 mL/min >60 [facility] Comment on above: GFR Calc Estimated GFR (MDRD) Non-Af Amer 135 mL/min >60 [facility] Comment on above: Non- GFR Calc Vitamin D 25-Hydroxy 42.6 ng/mL [facility] Comment on above: Vitamin D 25(OH) Sta tus Range Deficiency <20 ng/mL (50nmol/L) Insufficiency 20 - 30 ng/mL (50 - 75 nmol/L) Sufficiency 30 - 100 ng/mL (75 - 250 nmol/L) Toxicity >100 ng/mL (>250 nmol/L) 27.2 pg 27.0-32.0 [facility] 32.3 g/dL 32-36 [facility] 223 K/mm3 150-450 [facility] 10.2 fl 6.2-12.0 [facility] 0 % 0-5 [facility] 135 mL/min >60 [facility] 163 mL/min >60 [facility] 56.7 RATIO 10-20 [facility] 3.1 g/dL 2.2-4.2 [facility] 0.9 RATIO 0.9-2.4 [facility] 93 U/L 45-117 [facility] 35 U/L 13-56 [facility] 27.0 mmol/L 21.0-32.0 [facility] 42.6 ng/mL [facility] RBC Auto (Bld) [#/Vol]Ordere d By: Zaynab Pina on 05-01-2023 RBC (Bld) [#/Vol] 3.93 10*6/uL 4.2-5.4 [facility] Serum or plasma calcium monica urement (mass/volume)Ordered By: Zaynab Pina on 05-01-2023 Calcium [Mass/Vol] 8.6 mg/dL 8.5-10.1 [facility] Serum or plasma creatinine m easurement (mass/volume)Ordered By: Zaynab Pina on 05-01-2023 Creatinine [Mass/Vol] 0.48 mg/dL 0.55-1.02 [facility] Comment on above: The validity of the calculated GFR & GFRAA in patients over 70 years has not been determined. Clinical correlation is essential. Serum or plasma urea nitroge n measurement (mass/volume)Ordered By: Zaynab Pina on 05-01-2023 Urea nitrogen [Mass/Vol] 27 mg/dL 7-18 [facility] Thin prep Papanicolaou smear with manual screeningOrdered By: Zaynab Pina on 05-01-2023 Thin prep Papanicolaou smear with manual screening 2.7 g/dL 3.2-5.0 [facility] Thin prep Papanicolaou smear with manual screening 23 U/L 15-37 [facility] Thin prep Papanicolaou smear with manual screening 5 5-15 [facility] Laboratory - CoagulationOrde red By: Edinson Irvin on 04-30-2023 INR Coag (Bld) [Relative time] 2.2 {INR} [facility] PT Coag (PPP) [Time] 24.5 s 11.7-14.9 [facility] No Panel InformationOrdered By: Edinson Irvin on 04-30-2023 24.5 SECONDS 11.7-14.9 [facility] 2.2 [facility] Basophil percentageOrdered B y: Edinson Irvin on 04-27-2023 Basophil percentage 82 mg/dL 74-106 [facility] Basophil percentage 136 mmol/L 136-145 [facility] Basophil percentage 3.6 mmol/L 3.5-5.1 [facility] Basophil percentage 101 mmol/L 98-107 [facility] Chloride [Moles/Vol] 101 mmol/L 98-107 [facility] Glucose [Mass/Vol] 82 mg/dL 74-106 [facility] Potassium [Moles/Vol] 3.6 mmol/L 3.5-5.1 [facility] Sodium [Moles/Vol] 136 mmol/L 136-145 [facility] Laboratory - Chemistry and C hemistry - challengeOrdered By: Edinson Irvin on 04-27-2023 CO2 [Moles/Vol] 28.0 mmol/L 21.0-32.0 [facility] Urea nitrogen/Creatinine [Mass ratio] 54.9 mg/mg 10-20 [facility] No Panel InformationOrdered By: Edinson Irvin on 04-27-2023 Estimated Creatinine Clearance Calc 50.26 ml/min [facility] Estimated GFR (MDRD) Amer 151 mL/min >60 [facility] Comment on above: GFR Calc Estimated GFR (MDRD) Non-Af Amer 125 mL/min >60 [facility] Comment on above: Non- GFR Calc 125 mL/min >60 [facility] 151 mL/min >60 [facility] 50.26 ml/min [facility] 54.9 RATIO 10- [facility] 28.0 mmol/L 21.0-32.0 [facility] Serum or plasma calcium monica urement (mass/volume)Ordered By: Edinson Irvin on 04-27-2023 Calcium [Mass/Vol] 8.4 mg/dL 8.5-10.1 [facility] Serum or plasma creatinine m easurement (mass/volume)Ordered By: Edinson Irvin on 04-27-2023 Creatinine [Mass/Vol] 0.51 mg/dL 0.55-1.02 [facility] Comment on above: The validity of the calculated GFR & GFRAA in patients over 70 years has not been determined. Clinical correlation is essential. Serum or plasma urea nitroge n measurement (mass/volume)Ordered By: Edinson Irvin on 04-27-2023 Urea nitrogen [Mass/Vol] 28 mg/dL 7-18 [facility] Thin prep Papanicolaou smear with manual screeningOrdered By: Edinson Irvin on 04-27-2023 Thin prep Papanicolaou smear with manual screening 7 5-15 [facility] Laboratory - CoagulationOrde red By: Edinson Irvin on 04-16-2023 INR Coag (Bld) [Relative time] 1.2 {INR} [facility] PT Coag (PPP) [Time] 14.8 s 11.7-14.9 [facility] Basophil percentageOrdered B y: Edinson Irvin on 04-13-2023 Chloride [Moles/Vol] 104 mmol/L 98-107 [facility] Glucose [Mass/Vol] 89 mg/dL 74-106 [facility] Potassium [Moles/Vol] 3.5 mmol/L 3.5-5.1 [facility] Sodium [Moles/Vol] 136 mmol/L 136-145 [facility] Laboratory - Chemistry and C hemistry - challengeOrdered By: Edinson Irvin on 04-13-2023 CO2 [Moles/Vol] 28.0 mmol/L 21.0-32.0 [facility] Urea nitrogen/Creatinine [Mass ratio] 38.2 mg/mg 10-20 [facility] No Panel InformationOrdered By: Edinson Irvin on 04-13-2023 Estimated Creatinine Clearance Calc 50.26 ml/min [facility] Estimated GFR (MDRD) Amer 147 mL/min >60 [facility] Comment on above: GFR Calc Estimated GFR (MDRD) Non-Af Amer 121 mL/min >60 [facility] Comment on above: Non- GFR Calc Respiratory pathogens detect ion panel by molecular detection methodOrdered By: Edinson Irvin on 04-13-2023 Respiratory pathogens DNA and RNA panel GWEN+probe (Resp) [facility] Respiratory pathogens DNA and RNA panel GWEN+probe (Resp) [facility] Serum or plasma calcium monica urement (mass/volume)Ordered By: Edinson Irvin on 04-13-2023 Calcium [Mass/Vol] 7.8 mg/dL 8.5-10.1 [facility] Serum or plasma creatinine m easurement (mass/volume)Ordered By: Edinson Irvin on 04-13-2023 Creatinine [Mass/Vol] 0.52 mg/dL 0.55-1.02 [facility] Comment on above: The validity of the calculated GFR & GFRAA in patients over 70 years has not been determined. Clinical correlation is essential. Serum or plasma urea nitroge n measurement (mass/volume)Ordered By: Edinson Irvin on 04-13-2023 Urea nitrogen [Mass/Vol] 20 mg/dL 7-18 [facility] Thin prep Papanicolaou smear with manual screeningOrdered By: Edinson Irvin on 04-13-2023 Thin prep Papanicolaou smear with manual screening 4 5-15 [facility] Absolute lymphocyte countOrd ered By: Edinson Irvin on 04-12-2023 Lymphocytes Auto (Unsp spec) [#/Vol] 1.14 10*3/uL 0.83-4.51 [facility] Automated lymphocyte count a s percentage of total leukocytesOrdered By: Edinson Irvin on 04-12-2023 Lymphocytes/100 WBC Auto (Unsp spec) 27.6 % 19-41 [facility] Basophil percentageOrdered B y: Edinson Irvin on 04-12-2023 Basophil percentage 10.1 g/dL 12.0-15.0 [facility] Basophils (Bld) [#/Vol] 4.1 10*3/uL 4.4-11.0 [facility] Basophils (Bld) [#/Vol] 2.1 10*3/uL 2.0-7.7 [facility] Basophils/100 WBC (Bld) 1.2 % 0-1 [facility] Basophils/100 WBC (Bld) 50.6 % 47-70 [facility] Basophils/100 WBC (Bld) 11.4 % 0-10 [facility] Basophils/100 WBC (Bld) 8.7 % 0-5 [facility] Eosinophils/100 WBC (Bld) 8.7 % 0-5 [facility] Hemoglobin (Bld) [Mass/Vol] 10.1 g/dL 12.0-15.0 [facility] Monocytes/100 WBC (Bld) 11.4 % 0-10 [facility] Neutrophils (Bld) [#/Vol] 2.1 10*3/uL 2.0-7.7 [facility] Neutrophils/100 WBC (Bld) 50.6 % 47-70 [facility] WBC (Bld) [#/Vol] 4.1 10*3/uL 4.4-11.0 [facility] Determination of erythrocyte mean corpuscular volume (MCV)Ordered By: Edinson Irvin on 04-12-2023 MCV (RBC) [Entitic vol] 86.8 fL 81-99 [facility] Erythrocyte distribution wid th ratioOrdered By: Edinson Irvin on 04-12-2023 Erythrocyte distribution width (RBC) [Ratio] 22.8 % 11.6-14.6 [facility] Erythrocyte distribution wid th standard deviationOrdered By: [facility] on 04-12-2023 Erythrocyte distribution width (RBC) [Entitic vol] 72.1 fL 35.1-43.9 [facility] Hematocrit Auto (Bld) [Volum e fraction]Ordered By: [facility] on 04-12-2023 Hematocrit (Bld) [Volume fraction] 30.9 % 37-47 [facility] Immature granulocytes/100 WB C Auto (Bld)Ordered By: [facility] on 04-12-2023 Immature granulocytes/100 WBC (Bld) 0.500 % 0.0-0.9 [facility] Comment on above: IG% - Immature Granu locytes (promyelocytes, myelocytes and metamyelocytes) > 1% indicates that a LEFT SHIFT is Present. Laboratory - Hematology and Cell countsOrdered By: Edinson Irvin on 04-12-2023 MCH (RBC) [Entitic mass] 28.4 pg 27.0-32.0 [facility] MCHC (RBC) [Mass/Vol] 32.7 g/dL 32-36 [facility] Nucleated RBC/100 WBC (Bld) [Ratio] 0 % 0-5 [facility] Platelet mean volume (Bld) [Entitic vol] 9.8 fL 6.2-12.0 [facility] Platelets (Bld) [#/Vol] 119 10*3/uL 150-450 [facility] No Panel InformationOrdered By: Edinson Irvin on 04-12-2023 28.4 pg 27.0-32.0 [facility] 32.7 g/dL 32-36 [facility] 119 K/mm3 150-450 [facility] 9.8 fl 6.2-12.0 [facility] 0 % 0-5 [facility] RBC Auto (Bld) [#/Vol]Ordere d By: Edinson Irvin on 04-12-2023 RBC (Bld) [#/Vol] 3.56 10*6/uL 4.2-5.4 [facility] Blood manual differential co mment interpretation (narrative result)Ordered By: Edinson Irvin on 04-11-2023 Manual differential comment Donte (Bld) [Interp] SCANNED [facility] Blood platelet adequacy dete ction by light microscopyOrdered By: Edinson Irvin on 04-11-2023 Platelets LM Ql (Bld) MOD DEC ADEQ [facility] Laboratory - Hematology and Cell countsOrdered By: Edinson Irvin on 04-11-2023 Anisocytosis Ql (Bld) 1+ [facility] No Panel InformationOrdered By: Edinson Irvin on 04-11-2023 1+ [facility] Basophil percentageOrdered B y: Edinson Irvin on 04-06-2023 Basophil percentage 0 SEEN /hpf 0-5 [facility] Bilirubin Test strip Ql (U)O rdered By: Edinson Irvin on 04-06-2023 Bilirubin Ql (U) Negative Negative [facility] Culture, urineOrdered By: Gal Irvin on 04-06-2023 Bacteria identified Cx Nom (U) Culture exhibits no growth. [facility] Ketones Test strip Ql (U)Ord ered By: Edinson Irvin on 04-06-2023 Ketones Ql (U) Negative Negative [facility] Mucus LM Ql (Urine sed)Order ed By: Edinson Irvin on 04-06-2023 Mucus Ql (Urine sed) 0 SEEN /hpf [facility] Nitrite Test strip Ql (U)Ord ered By: Edinson Irvin on 04-06-2023 Nitrite Ql (U) Negative Negative [facility] No Panel InformationOrdered By: Edinson Irvin on 04-06-2023 Urine RBC 0 SEEN /hpf 0-5 [facility] 0 SEEN /hpf 0-5 [facility] Protein Test strip Ql (U)Ord ered By: Edinson Irvin on 04-06-2023 Protein Ql (U) 15 mg/dl Negative [facility] Review by pathologistOrdered By: Edinson Irvin on 04-06-2023 Pathologist review Donte (Unsp spec) [Interp] Reviewed [facility] Comment on above: Previous reported re sult: Dori urbano Edited by: CECY on 04/06/23:1217Normocytic anemia.MARKED Thrombocytopenia.Clinical correlation necessary.Landon Ontiveros M.D. 04/06/23 AMENDED REPORT 04/06/23 1217 PATH REV previously reported as: Dori urbano Squamous epithelial cells de tection in urine sediment by light microscopyOrdered By: Edinson Irvin on 04-06-2023 Epithelial cells.squamous LM Ql (Urine sed) 0-5 SEEN /hpf 5-10 [facility] Urine blood detectionOrdered By: Edinson Irvin on 04-06-2023 RBC Ql (U) 10 /ul Negative [facility] Urine clarityOrdered By: Edinson Irvin on 04-06-2023 Clarity (U) Clear Clear [facility] Urine color determinationOrd ered By: Edinson Irvin on 04-06-2023 Color (U) Yellow Yellow [facility] Urine glucose detectionOrder ed By: Edinson Irvin on 04-06-2023 Glucose Ql (U) Normal mg/dl Normal [facility] Urine leukocyte esterase det ection by dipstickOrdered By: Edinson Irvin on 04-06-2023 Leukocyte esterase Test strip Ql (U) Negative Negative [facility] Urine pHOrdered By: Edinson Irvin on 04-06-2023 pH (U) 6.0 [pH] 5.0 - 8.0 [facility] Urine sediment bacteria coun t by microscopy (number/high power field)Ordered By: Edinson Irvin on 04-06-2023 Bacteria LM.HPF (Urine sed) [#/Area] 0 /[HPF] None Seen [facility] Urine specific gravity measu rementOrdered By: Edinson Irvin on 04-06-2023 Specific gravity (U) [Rel density] 1.015 1.002-1.03 0 [facility] Urine urobilinogen measureme ntOrdered By: Edinson Irvin on 04-06-2023 Urobilinogen Ql (U) Normal mg/dl Normal [facility] Absolute lymphocyte countOrd ered By: Jasmyn Chan on 04-05-2023 Lymphocytes Auto (Unsp spec) [#/Vol] 0.61 10*3/uL 0.83-4.51 [facility] Automated lymphocyte count a s percentage of total leukocytesOrdered By: Jasmyn Chan on 04-05-2023 Lymphocytes/100 WBC Auto (Unsp spec) 10.5 % 19-41 [facility] Basophil percentageOrdered B y: Jasmyn Chan on 04-05-2023 Basophil percentage 9.6 g/dL 12.0-15.0 [facility] Basophils (Bld) [#/Vol] 5.8 10*3/uL 4.4-11.0 [facility] Basophils (Bld) [#/Vol] 4.4 10*3/uL 2.0-7.7 [facility] Basophils/100 WBC (Bld) 0.2 % 0-1 [facility] Basophils/100 WBC (Bld) 74.7 % 47-70 [facility] Basophils/100 WBC (Bld) 8.8 % 0-10 [facility] Basophils/100 WBC (Bld) 5.3 % 0-5 [facility] Eosinophils/100 WBC (Bld) 5.3 % 0-5 [facility] Hemoglobin (Bld) [Mass/Vol] 9.6 g/dL 12.0-15.0 [facility] Monocytes/100 WBC (Bld) 8.8 % 0-10 [facility] Neutrophils (Bld) [#/Vol] 4.4 10*3/uL 2.0-7.7 [facility] Neutrophils/100 WBC (Bld) 74.7 % 47-70 [facility] WBC (Bld) [#/Vol] 5.8 10*3/uL 4.4-11.0 [facility] Blood platelet adequacy dete ction by light microscopyOrdered By: Jasmyn Chan on 04-05-2023 Platelets LM Ql (Bld) MKD DEC ADEQ [facility] Determination of erythrocyte mean corpuscular volume (MCV)Ordered By: Jasmyn Chan on 04-05-2023 MCV (RBC) [Entitic vol] 85.0 fL 81-99 [facility] Erythrocyte distribution wid th ratioOrdered By: Jasmyn Chan on 04-05-2023 Erythrocyte distribution width (RBC) [Ratio] 22.8 % 11.6-14.6 [facility] Erythrocyte distribution wid th standard deviationOrdered By: Jasmyn Chan on 04-05-2023 Erythrocyte distribution width (RBC) [Entitic vol] 69.7 fL 35.1-43.9 [facility] Hematocrit Auto (Bld) [Volum e fraction]Ordered By: Jasmyn Chan on 04-05-2023 Hematocrit (Bld) [Volume fraction] 28.8 % 37-47 [facility] Immature granulocytes/100 WB C Auto (Bld)Ordered By: Jasmyn Chan on 04-05-2023 Immature granulocytes/100 WBC (Bld) 0.500 % 0.0-0.9 [facility] Comment on above: IG% - Immature Granu locytes (promyelocytes, myelocytes and metamyelocytes) > 1% indicates that a LEFT SHIFT is Present. Laboratory - Hematology and Cell countsOrdered By: Jasmyn Chan on 04-05-2023 Anisocytosis Ql (Bld) 2+ [facility] MCH (RBC) [Entitic mass] 28.3 pg 27.0-32.0 [facility] MCHC (RBC) [Mass/Vol] 33.3 g/dL 32-36 [facility] Nucleated RBC/100 WBC (Bld) [Ratio] 0 % 0-5 [facility] Platelet mean volume (Bld) [Entitic vol] 9.9 fL 6.2-12.0 [facility] Platelets (Bld) [#/Vol] 32 10*3/uL 150-450 [facility] No Panel InformationOrdered By: Jasmyn Chan on 04-05-2023 28.3 pg 27.0-32.0 [facility] 33.3 g/dL 32-36 [facility] 32 K/mm3 150-450 [facility] 9.9 fl 6.2-12.0 [facility] 0 % 0-5 [facility] 2+ [facility] RBC Auto (Bld) [#/Vol]Ordere d By: Jasmyn Chna on 04-05-2023 RBC (Bld) [#/Vol] 3.39 10*6/uL 4.2-5.4 [facility] Review by pathologistOrdered By: Jasmyn Chan on 04-05-2023 Pathologist review Donte (Unsp spec) [Interp] Reviewed [facility] Comment on above: Previous reported re sult: Dori urbano Edited by: [email or web address] on 04/05/23:1300Normocytic anemia.Marked Thrombocytopenia.Clinical correlation necessary.Landon Ontiveros M.D. 04/05/23 AMENDED REPORT 04/05/23 1300 PATH REV previously reported as: Dori urbano Blood manual differential co mment interpretation (narrative result)Ordered By: Jasmyn Chan on 04-04-2023 Manual differential comment Donte (Bld) [Interp] SCANNED [facility] Comment on above: LYMPHOPENIA NOTEDTHR OMBOCYTOPENIA NOTED Laboratory - CoagulationOrde red By: Laine Veras on 04-03-2023 INR Coag (Bld) [Relative time] 1.3 {INR} [facility] PT Coag (PPP) [Time] 16.2 s 11.7-14.9 [facility] No Panel InformationOrdered By: Laine Veras on 04-03-2023 16.2 SECONDS 11.7-14.9 [facility] 1.3 [facility] Basophil percentageOrdered B y: Alisa White on 04-02-2023 Basophil percentage 86 mg/dL 74-106 [facility] Basophil percentage 4.9 g/dL 6.4-8.2 [facility] Basophil percentage 1.70 mg/dL 0.20-1.00 [facility] Basophil percentage 134 mmol/L 136-145 [facility] Basophil percentage 3.6 mmol/L 3.5-5.1 [facility] Basophil percentage 102 mmol/L 98-107 [facility] Bilirubin [Mass/Vol] 1.70 mg/dL 0.20-1.00 [facility] Comment on above: For patients on eltr ombopag therapy, use of Dimension [place] TBIL is not recommended. Chloride [Moles/Vol] 102 mmol/L 98-107 [facility] Glucose [Mass/Vol] 86 mg/dL 74-106 [facility] Potassium [Moles/Vol] 3.6 mmol/L 3.5-5.1 [facility] Protein [Mass/Vol] 4.9 g/dL 6.4-8.2 [facility] Sodium [Moles/Vol] 134 mmol/L 136-145 [facility] Laboratory - Chemistry and C hemistry - challengeOrdered By: Alisa Mathew on 04-02-2023 Albumin/Globulin [Mass ratio] 0.7 {ratio} 0.9-2.4 [facility] ALP [Catalytic activity/Vol] 84 U/L [facility] ALT [Catalytic activity/Vol] 35 U/L [facility] CO2 [Moles/Vol] 27.0 mmol/L 21.0-32.0 [facility] Globulin (S) [Mass/Vol] 2.9 g/dL 2.2-4.2 [facility] Urea nitrogen/Creatinine [Mass ratio] 25.1 mg/mg 10- [facility] No Panel InformationOrdered By: Alisa Mathew on 04-02-2023 Estimated Creatinine Clearance Calc 50.26 ml/min [facility] Estimated GFR (MDRD) Amer 149 mL/min >60 [facility] Comment on above: GFR Calc Estimated GFR (MDRD) Non-Af Amer 123 mL/min >60 [facility] Comment on above: Non- GFR Calc 123 mL/min >60 [facility] 149 mL/min >60 [facility] 50.26 ml/min [facility] 25.1 RATIO 10- [facility] 2.9 g/dL 2.2-4.2 [facility] 0.7 RATIO 0.9-2.4 [facility] 84 U/L [facility] 35 U/L [facility] 27.0 mmol/L 21.0-32.0 [facility] Serum or plasma calcium monica urement (mass/volume)Ordered By: Alisa Mathew on 04-02-2023 Calcium [Mass/Vol] 7.2 mg/dL 8.5-10.1 [facility] Serum or plasma creatinine m easurement (mass/volume)Ordered By: Alisa Mathew on 04-02-2023 Creatinine [Mass/Vol] 0.52 mg/dL 0.55-1.02 [facility] Comment on above: The validity of the calculated GFR & GFRAA in patients over 70 years has not been determined. Clinical correlation is essential. Serum or plasma urea nitroge n measurement (mass/volume)Ordered By: Alisa Mathew on 04-02-2023 Urea nitrogen [Mass/Vol] 13 mg/dL 7-18 [facility] Thin prep Papanicolaou smear with manual screeningOrdered By: Alisa Mathew on 04-02-2023 Thin prep Papanicolaou smear with manual screening 2.0 g/dL 3.2-5.0 [facility] Thin prep Papanicolaou smear with manual screening 20 U/L 15-37 [facility] Thin prep Papanicolaou smear with manual screening 5 5-15 [facility] Iron measurement (mass/mass) Ordered By: Alisa Mathew on 04-01-2023 Iron (Unsp spec) [Mass/Mass] 21 ug/dL 50-170 [facility] Laboratory - Chemistry and C hemistry - challengeOrdered By: Alisa Mathew on 04-01-2023 Ferritin [Mass/Vol] 268 ng/mL 8 [facility] Laboratory - Chemistry and C hemistry - challengeOrdered By: Laine Veras on 04-01-2023 Magnesium [Mass/Vol] 2.1 mg/dL 1.6-2.6 [facility] No Panel InformationOrdered By: Alisa Mathew on 04-01-2023 Total Iron Binding Capacity 243 ug/dL 250-450 [facility] 243 ug/dL 250-450 [facility] 268 ng/mL 8-252 [facility] No Panel InformationOrdered By: Laine Veras on 04-01-2023 2.1 mg/dL 1.6-2.6 [facility] Serum or plasma iron saturat ion measurement (mass fraction)Ordered By: Alisa Mathew on 04-01-2023 Iron saturation [Mass fraction] 8.6 % 15.0-55.0 [facility] Absolute lymphocyte countOrd ered By: Frederick Almazan on 03-31-2023 Lymphocytes Auto (Unsp spec) [#/Vol] 0.59 10*3/uL 0.83-4.51 [facility] Automated lymphocyte count a s percentage of total leukocytesOrdered By: Frederick Almazan on 03-31-2023 Lymphocytes/100 WBC Auto (Unsp spec) 3.0 % 19-41 [facility] Basophil percentageOrdered B y: Frederick Almazan on 03-31-2023 Basophil percentage 1.4 mmol/L 0.4-2.0 [facility] Basophils/100 WBC (Bld) 0.1 % 0-1 [facility] Chloride [Moles/Vol] 99 mmol/L 98-107 [facility] Eosinophils/100 WBC (Bld) 0.1 % 0-5 [facility] Glucose [Mass/Vol] 108 mg/dL 74-106 [facility] Comment on above: Fasting Glucose resu lt from 100 to 125 mg/dL suggests IMPAIRED HOMEOSTASIS per A.D.A. criteria. Hemoglobin (Bld) [Mass/Vol] 8.3 g/dL 12.0-15.0 [facility] Lactate [Moles/Vol] 1.4 mmol/L 0.4-2.0 [facility] Monocytes/100 WBC (Bld) 5.0 % 0-10 [facility] Neutrophils (Bld) [#/Vol] 17.6 10*3/uL 2.0-7.7 [facility] Neutrophils/100 WBC (Bld) 90.8 % 47-70 [facility] Potassium [Moles/Vol] 3.2 mmol/L 3.5-5.1 [facility] Sodium [Moles/Vol] 134 mmol/L 136-145 [facility] WBC (Bld) [#/Vol] 19.4 10*3/uL 4.4-11.0 [facility] Blood manual differential co mment interpretation (narrative result)Ordered By: Frederick Almazan on 03-31-2023 Manual differential comment Donte (Bld) [Interp] SCANNED [facility] Blood platelet adequacy dete ction by light microscopyOrdered By: Frederick Almazan on 03-31-2023 Platelets LM Ql (Bld) MOD DEC ADEQ [facility] Determination of erythrocyte mean corpuscular volume (MCV)Ordered By: Frederick Almazan on 03-31-2023 MCV (RBC) [Entitic vol] 86.8 fL 81-99 [facility] Erythrocyte distribution wid th ratioOrdered By: Frederick Almazan on 03-31-2023 Erythrocyte distribution width (RBC) [Ratio] 24.1 % 11.6-14.6 [facility] Erythrocyte distribution wid th standard deviationOrdered By: Frederick Almazan on 03-31-2023 Erythrocyte distribution width (RBC) [Entitic vol] 75.1 fL 35.1-43.9 [facility] Erythrocyte sedimentation ra teOrdered By: Laine Veras on 03-31-2023 ESR (Bld) [Velocity] 7 mm/h 0-30 [facility] Hematocrit Auto (Bld) [Volum e fraction]Ordered By: Frederick Almazan on 03-31-2023 Hematocrit (Bld) [Volume fraction] 24.9 % 37-47 [facility] Immature granulocytes/100 WB C Auto (Bld)Ordered By: Frederick Almazan on 03-31-2023 Immature granulocytes/100 WBC (Bld) 1.000 % 0.0-0.9 [facility] Comment on above: IG% - Immature Granu locytes (promyelocytes, myelocytes and metamyelocytes) > 1% indicates that a LEFT SHIFT is Present. Laboratory - Chemistry and C hemistry - challengeOrdered By: Frederick Almazan on 03-31-2023 CK [Catalytic activity/Vol] 125 U/L 26-192 [facility] CO2 [Moles/Vol] 29.0 mmol/L 21.0-32.0 [facility] Natriuretic peptide B (Bld) [Mass/Vol] 97.8 pg/mL 0-100 [facility] Urea nitrogen/Creatinine [Mass ratio] 41.2 mg/mg 10-20 [facility] Laboratory - CoagulationOrde red By: Frederick Almazan on 03-31-2023 INR Coag (Bld) [Relative time] 1.3 {INR} [facility] PT Coag (PPP) [Time] 16.0 s 11.7-14.9 [facility] Laboratory - Hematology and Cell countsOrdered By: Frederick Almazan on 03-31-2023 Anisocytosis Ql (Bld) 2+ [facility] MCH (RBC) [Entitic mass] 28.9 pg 27.0-32.0 [facility] MCHC (RBC) [Mass/Vol] 33.3 g/dL 32-36 [facility] Nucleated RBC/100 WBC (Bld) [Ratio] 0 % 0-5 [facility] Platelet mean volume (Bld) [Entitic vol] 10.4 fL 6.2-12.0 [facility] Platelets (Bld) [#/Vol] 95 10*3/uL 150-450 [facility] Macrocytes detectionOrdered By: Frederick Almazan on 03-31-2023 Macrocytes Ql (Bld) 1+ [facility] No Panel InformationOrdered By: Laine Veras on 03-31-2023 C-Reactive Protein Extended Range 35.90 mg/L 0.0-3.0 [facility] Comment on above: C-Reactive Protein ( CRP) provides useful information for thediagnosis, therapy and monitoring of inflammatory processesand associated diseases. For the evaluation of Relative Riskfor Cardiovascular Disease, a High Sensitivity CRP (HSCRP)should be ordered. 35.90 mg/L 0.0-3.0 [facility] No Panel InformationOrdered By: Frederick Almazan on 03-31-2023 Estimated Creatinine Clearance Calc 50.26 ml/min [facility] Estimated GFR (MDRD) Amer 96 mL/min >60 [facility] Comment on above: GFR Calc Estimated GFR (MDRD) Non-Af Amer 80 mL/min >60 [facility] Comment on above: Non- GFR Calc 125 U/L 26-192 [facility] 97.8 pg/mL 0-100 [facility] RBC Auto (Bld) [#/Vol]Ordere d By: Frederick Almazan on 03-31-2023 RBC (Bld) [#/Vol] 2.87 10*6/uL 4.2-5.4 [facility] Serum or plasma calcium monica urement (mass/volume)Ordered By: Frederick Almazan on 03-31-2023 Calcium [Mass/Vol] 7.8 mg/dL 8.5-10.1 [facility] Serum or plasma creatinine m easurement (mass/volume)Ordered By: Frederick Almazan on 03-31-2023 Creatinine [Mass/Vol] 0.75 mg/dL 0.55-1.02 [facility] Comment on above: The validity of the calculated GFR & GFRAA in patients over 70 years has not been determined. Clinical correlation is essential. Serum or plasma urea nitroge n measurement (mass/volume)Ordered By: Frederick Almazan on 03-31-2023 Urea nitrogen [Mass/Vol] 31 mg/dL 7-18 [facility] Thin prep Papanicolaou smear with manual screeningOrdered By: Frederick Almazan on 03-31-2023 Thin prep Papanicolaou smear with manual screening 1+ [facility] Thin prep Papanicolaou smear with manual screening 6 5-15 [facility] Absolute lymphocyte countOrd ered By: Etienne Thacker on 03-28-2023 Lymphocytes Auto (Unsp spec) [#/Vol] 1.04 10*3/uL 0.83-4.51 [facility] Automated lymphocyte count a s percentage of total leukocytesOrdered By: Etienne Thacker on 03-28-2023 Lymphocytes/100 WBC Auto (Unsp spec) 7.4 % 19-41 [facility] Basophil percentageOrdered B y: Etienne Thacker on 03-28-2023 Basophil percentage 9.6 g/dL 12.0-15.0 [facility] Basophil percentage 113 mg/dL 74-106 [facility] Basophil percentage 131 mmol/L 136-145 [facility] Basophil percentage 4.0 mmol/L 3.5-5.1 [facility] Basophil percentage 98 mmol/L 98-107 [facility] Basophils (Bld) [#/Vol] 14.1 10*3/uL 4.4-11.0 [facility] Basophils (Bld) [#/Vol] 11.3 10*3/uL 2.0-7.7 [facility] Basophils/100 WBC (Bld) 0.2 % 0-1 [facility] Basophils/100 WBC (Bld) 80.2 % 47-70 [facility] Basophils/100 WBC (Bld) 9.8 % 0-10 [facility] Basophils/100 WBC (Bld) 0.0 % 0-5 [facility] Chloride [Moles/Vol] 98 mmol/L 98-107 [facility] Eosinophils/100 WBC (Bld) 0.0 % 0-5 [facility] Glucose [Mass/Vol] 113 mg/dL 74-106 [facility] Comment on above: Fasting Glucose resu lt from 100 to 125 mg/dL suggests IMPAIRED HOMEOSTASIS per A.D.A. criteria. Hemoglobin (Bld) [Mass/Vol] 9.6 g/dL 12.0-15.0 [facility] Monocytes/100 WBC (Bld) 9.8 % 0-10 [facility] Neutrophils (Bld) [#/Vol] 11.3 10*3/uL 2.0-7.7 [facility] Neutrophils/100 WBC (Bld) 80.2 % 47-70 [facility] Potassium [Moles/Vol] 4.0 mmol/L 3.5-5.1 [facility] Sodium [Moles/Vol] 131 mmol/L 136-145 [facility] WBC (Bld) [#/Vol] 14.1 10*3/uL 4.4-11.0 [facility] Blood manual differential co mment interpretation (narrative result)Ordered By: Etienne Thacker on 03-28-2023 Manual differential comment Donte (Bld) [Interp] See comment [facility] Comment on above: 1+ ANISOCYTOSIS Determination of erythrocyte mean corpuscular volume (MCV)Ordered By: Etienne Thacker on 03-28-2023 MCV (RBC) [Entitic vol] 83.2 fL 81-99 [facility] Erythrocyte distribution wid th ratioOrdered By: Etienne Thacker on 03-28-2023 Erythrocyte distribution width (RBC) [Ratio] 22.1 % 11.6-14.6 [facility] Erythrocyte distribution wid th standard deviationOrdered By: Etienne Thacker on 03-28-2023 Erythrocyte distribution width (RBC) [Entitic vol] 52.7 fL 35.1-43.9 [facility] Hematocrit Auto (Bld) [Volum e fraction]Ordered By: Etienne Thacker on 03-28-2023 Hematocrit (Bld) [Volume fraction] 28.8 % 37-47 [facility] Immature granulocytes/100 WB C Auto (Bld)Ordered By: Etienne Thacker on 03-28-2023 Immature granulocytes/100 WBC (Bld) 2.400 % 0.0-0.9 [facility] Comment on above: IG% - Immature Granu locytes (promyelocytes, myelocytes and metamyelocytes) > 1% indicates that a LEFT SHIFT is Present. Laboratory - Chemistry and C hemistry - challengeOrdered By: Etienne Thacker on 03-28-2023 CO2 [Moles/Vol] 25.0 mmol/L 21.0-32.0 [facility] Natriuretic peptide B (Bld) [Mass/Vol] 162.5 pg/mL 0-100 [facility] Urea nitrogen/Creatinine [Mass ratio] 35.6 mg/mg 10-20 [facility] Laboratory - CoagulationOrde red By: Etienne Thacker on 03-28-2023 INR Coag (Bld) [Relative time] 3.1 {INR} [facility] PT Coag (PPP) [Time] 32.4 s 11.7-14.9 [facility] Laboratory - Hematology and Cell countsOrdered By: Etienne Thacker on 03-28-2023 MCH (RBC) [Entitic mass] 27.7 pg 27.0-32.0 [facility] MCHC (RBC) [Mass/Vol] 33.3 g/dL 32-36 [facility] Nucleated RBC/100 WBC (Bld) [Ratio] 0.1 % 0-5 [facility] Platelet mean volume (Bld) [Entitic vol] 10.3 fL 6.2-12.0 [facility] Platelets (Bld) [#/Vol] 170 10*3/uL 150-450 [facility] No Panel InformationOrdered By: Etienne Thacker on 03-28-2023 Estimated Creatinine Clearance Calc 39.81 ml/min [facility] Estimated GFR (MDRD) Amer 69 mL/min >60 [facility] Comment on above: GFR Calc Estimated GFR (MDRD) Non-Af Amer 57 mL/min >60 [facility] Comment on above: Non- GFR Calc Troponin I High Sensitivity 17 pg/mL 3.0-54.0 [facility] Comment on above: Please Note: New [place] t Units and Gender Specific Reference Ranges. For more information see Policy Stat Procedure [place] High Sensitivity Troponin (TNIH) and attachments. 27.7 pg 27.0-32.0 [facility] 33.3 g/dL 32-36 [facility] 170 K/mm3 150-450 [facility] 10.3 fl 6.2-12.0 [facility] 0.1 % 0-5 [facility] 32.4 SECONDS 11.7-14.9 [facility] 3.1 [facility] 57 mL/min >60 [facility] 69 mL/min >60 [facility] 39.81 ml/min [facility] 35.6 RATIO 10-20 [facility] 17 pg/mL 3.0-54.0 [facility] 25.0 mmol/L 21.0-32.0 [facility] 162.5 pg/mL 0-100 [facility] RBC Auto (Bld) [#/Vol]Ordere d By: Etienne Thacker on 03-28-2023 RBC (Bld) [#/Vol] 3.46 10*6/uL 4.2-5.4 [facility] Serum or plasma calcium monica urement (mass/volume)Ordered By: Etienne Thacker on 03-28-2023 Calcium [Mass/Vol] 8.5 mg/dL 8.5-10.1 [facility] Serum or plasma creatinine m easurement (mass/volume)Ordered By: Etienne Thacker on 03-28-2023 Creatinine [Mass/Vol] 1.01 mg/dL 0.55-1.02 [facility] Comment on above: The validity of the calculated GFR & GFRAA in patients over 70 years has not been determined. Clinical correlation is essential. Serum or plasma urea nitroge n measurement (mass/volume)Ordered By: Etienne Thacker on 03-28-2023 Urea nitrogen [Mass/Vol] 36 mg/dL 7-18 [facility] Thin prep Papanicolaou smear with manual screeningOrdered By: Etienne Thacker on 03-28-2023 Thin prep Papanicolaou smear with manual screening 8 5-15 [facility] Absolute lymphocyte countOrd ered By: Laine Veras on 03-27-2023 Lymphocytes Auto (Unsp spec) [#/Vol] 1.08 10*3/uL 0.83-4.51 [facility] Automated lymphocyte count a s percentage of total leukocytesOrdered By: Laine Veras on 03-27-2023 Lymphocytes/100 WBC Auto (Unsp spec) 8.7 % 19-41 [facility] Basophil percentageOrdered B y: Laine Veras on 03-27-2023 Basophil percentage 7.9 g/dL 12.0-15.0 [facility] Basophil percentage 103 mg/dL 74-106 [facility] Basophil percentage 5.3 g/dL 6.4-8.2 [facility] Basophil percentage 1.70 mg/dL 0.20-1.00 [facility] Basophil percentage 132 mmol/L 136-145 [facility] Basophil percentage 4.1 mmol/L 3.5-5.1 [facility] Basophil percentage 101 mmol/L 98-107 [facility] Basophils (Bld) [#/Vol] 12.4 10*3/uL 4.4-11.0 [facility] Basophils (Bld) [#/Vol] 9.5 10*3/uL 2.0-7.7 [facility] Basophils/100 WBC (Bld) 0.2 % 0-1 [facility] Basophils/100 WBC (Bld) 76.4 % 47-70 [facility] Basophils/100 WBC (Bld) 10.7 % 0-10 [facility] Basophils/100 WBC (Bld) 0.0 % 0-5 [facility] Bilirubin [Mass/Vol] 1.70 mg/dL 0.20-1.00 [facility] Comment on above: For patients on eltr ombopag therapy, use of Dimension [place] TBIL is not recommended. Chloride [Moles/Vol] 101 mmol/L 98-107 [facility] Eosinophils/100 WBC (Bld) 0.0 % 0-5 [facility] Glucose [Mass/Vol] 103 mg/dL 74-106 [facility] Comment on above: Fasting Glucose resu lt from 100 to 125 mg/dL suggests IMPAIRED HOMEOSTASIS per A.D.A. criteria. Hemoglobin (Bld) [Mass/Vol] 7.9 g/dL 12.0-15.0 [facility] Monocytes/100 WBC (Bld) 10.7 % 0-10 [facility] Neutrophils (Bld) [#/Vol] 9.5 10*3/uL 2.0-7.7 [facility] Neutrophils/100 WBC (Bld) 76.4 % 47-70 [facility] Potassium [Moles/Vol] 4.1 mmol/L 3.5-5.1 [facility] Protein [Mass/Vol] 5.3 g/dL 6.4-8.2 [facility] Sodium [Moles/Vol] 132 mmol/L 136-145 [facility] WBC (Bld) [#/Vol] 12.4 10*3/uL 4.4-11.0 [facility] Blood manual differential co mment interpretation (narrative result)Ordered By: Laine Veras on 03-27-2023 Manual differential comment Donte (Bld) [Interp] SCANNED [facility] Determination of erythrocyte mean corpuscular volume (MCV)Ordered By: Laine Veras on 03-27-2023 MCV (RBC) [Entitic vol] 85.0 fL 81-99 [facility] Erythrocyte distribution wid th ratioOrdered By: Laine Veras on 03-27-2023 Erythrocyte distribution width (RBC) [Ratio] 20.5 % 11.6-14.6 [facility] Erythrocyte distribution wid th standard deviationOrdered By: Laine Veras on 03-27-2023 Erythrocyte distribution width (RBC) [Entitic vol] 51.5 fL 35.1-43.9 [facility] Hematocrit Auto (Bld) [Volum e fraction]Ordered By: Laine Veras on 03-27-2023 Hematocrit (Bld) [Volume fraction] 24.4 % 37-47 [facility] Immature granulocytes/100 WB C Auto (Bld)Ordered By: Laine Veras on 03-27-2023 Immature granulocytes/100 WBC (Bld) 4.000 % 0.0-0.9 [facility] Comment on above: IG% - Immature Granu locytes (promyelocytes, myelocytes and metamyelocytes) > 1% indicates that a LEFT SHIFT is Present. Laboratory - Chemistry and C hemistry - challengeOrdered By: Laine Veras on 03-27-2023 Albumin/Globulin [Mass ratio] 0.8 {ratio} 0.9-2.4 [facility] ALP [Catalytic activity/Vol] 170 U/L 45-117 [facility] ALT [Catalytic activity/Vol] 65 U/L 13-56 [facility] CO2 [Moles/Vol] 24.0 mmol/L 21.0-32.0 [facility] Globulin (S) [Mass/Vol] 3.0 g/dL 2.2-4.2 [facility] Magnesium [Mass/Vol] 2.6 mg/dL 1.6-2.6 [facility] Urea nitrogen/Creatinine [Mass ratio] 29.9 mg/mg 10-20 [facility] Laboratory - CoagulationOrde red By: Laine Veras on 03-27-2023 INR Coag (Bld) [Relative time] 3.9 {INR} [facility] PT Coag (PPP) [Time] 38.9 s 11.7-14.9 [facility] Laboratory - Hematology and Cell countsOrdered By: Laine Veras on 03-27-2023 Anisocytosis Ql (Bld) 2+ [facility] MCH (RBC) [Entitic mass] 27.5 pg 27.0-32.0 [facility] MCHC (RBC) [Mass/Vol] 32.4 g/dL 32-36 [facility] Nucleated RBC/100 WBC (Bld) [Ratio] 0.2 % 0-5 [facility] Platelet mean volume (Bld) [Entitic vol] 10.2 fL 6.2-12.0 [facility] Platelets (Bld) [#/Vol] 134 10*3/uL 150-450 [facility] No Panel InformationOrdered By: Laine Veras on 03-27-2023 Estimated Creatinine Clearance Calc 46.22 ml/min [facility] Estimated GFR (MDRD) Amer 82 mL/min >60 [facility] Comment on above: GFR Calc Estimated GFR (MDRD) Non-Af Amer 67 mL/min >60 [facility] Comment on above: Non- GFR Calc 27.5 pg 27.0-32.0 [facility] 32.4 g/dL 32-36 [facility] 134 K/mm3 150-450 [facility] 10.2 fl 6.2-12.0 [facility] 0.2 % 0-5 [facility] 2+ [facility] 38.9 SECONDS 11.7-14.9 [facility] 3.9 [facility] 67 mL/min >60 [facility] 82 mL/min >60 [facility] 46.22 ml/min [facility] 29.9 RATIO 10-20 [facility] 3.0 g/dL 2.2-4.2 [facility] 0.8 RATIO 0.9-2.4 [facility] 170 U/L 45-117 [facility] 65 U/L 13-56 [facility] 2.6 mg/dL 1.6-2.6 [facility] 24.0 mmol/L 21.0-32.0 [facility] RBC Auto (Bld) [#/Vol]Ordere d By: Laine Veras on 03-27-2023 RBC (Bld) [#/Vol] 2.87 10*6/uL 4.2-5.4 [facility] Serum or plasma calcium monica urement (mass/volume)Ordered By: Laine Veras on 03-27-2023 Calcium [Mass/Vol] 7.7 mg/dL 8.5-10.1 [facility] Serum or plasma creatinine m easurement (mass/volume)Ordered By: Laine Veras on 03-27-2023 Creatinine [Mass/Vol] 0.87 mg/dL 0.55-1.02 [facility] Comment on above: The validity of the calculated GFR & GFRAA in patients over 70 years has not been determined. Clinical correlation is essential. Serum or plasma thyroid stim ulating hormone (TSH) measurement (units/volume)Ordered By: Laine Veras on 03-27-2023 TSH Qn 0.76 uIU/mL 0.358-3.74 [facility] Serum or plasma urea nitroge n measurement (mass/volume)Ordered By: Laine Veras on 03-27-2023 Urea nitrogen [Mass/Vol] 26 mg/dL 7-18 [facility] Thin prep Papanicolaou smear with manual screeningOrdered By: Laine Veras on 03-27-2023 Thin prep Papanicolaou smear with manual screening 2.3 g/dL 3.2-5.0 [facility] Thin prep Papanicolaou smear with manual screening 27 U/L 15-37 [facility] Thin prep Papanicolaou smear with manual screening 7 5-15 [facility] Absolute lymphocyte countOrd ered By: Martín Cornejo on 03-26-2023 Lymphocytes Auto (Unsp spec) [#/Vol] 1.06 10*3/uL 0.83-4.51 [facility] Automated lymphocyte count a s percentage of total leukocytesOrdered By: Martín Cornejo on 03-26-2023 Lymphocytes/100 WBC Auto (Unsp spec) 6.3 % 19-41 [facility] Basophil percentageOrdered B y: Martín Cornejo on 03-26-2023 Basophil percentage 0 SEEN /hpf 0-5 [facility] Basophils/100 WBC (Bld) 0.1 % 0-1 [facility] Chloride [Moles/Vol] 101 mmol/L 98-107 [facility] Eosinophils/100 WBC (Bld) 0.0 % 0-5 [facility] Glucose [Mass/Vol] 111 mg/dL 74-106 [facility] Comment on above: Fasting Glucose resu lt from 100 to 125 mg/dL suggests IMPAIRED HOMEOSTASIS per A.D.A. criteria. Hemoglobin (Bld) [Mass/Vol] 8.9 g/dL 12.0-15.0 [facility] Monocytes/100 WBC (Bld) 9.6 % 0-10 [facility] Neutrophils (Bld) [#/Vol] 13.6 10*3/uL 2.0-7.7 [facility] Neutrophils/100 WBC (Bld) 80.3 % 47-70 [facility] Potassium [Moles/Vol] 3.6 mmol/L 3.5-5.1 [facility] Sodium [Moles/Vol] 135 mmol/L 136-145 [facility] WBC (Bld) [#/Vol] 16.9 10*3/uL 4.4-11.0 [facility] Bilirubin Test strip Ql (U)O rdered By: Martín Cornejo on 03-26-2023 Bilirubin Ql (U) Negative Negative [facility] Blood manual differential co mment interpretation (narrative result)Ordered By: Martín Cornejo on 03-26-2023 Manual differential comment Donte (Bld) [Interp] SCANNED [facility] Determination of erythrocyte mean corpuscular volume (MCV)Ordered By: Martín Cornejo on 03-26-2023 MCV (RBC) [Entitic vol] 81.5 fL 81-99 [facility] Erythrocyte distribution wid th ratioOrdered By: Martín Cornejo on 03-26-2023 Erythrocyte distribution width (RBC) [Ratio] 19.6 % 11.6-14.6 [facility] Erythrocyte distribution wid th standard deviationOrdered By: Martín Cornejo on 03-26-2023 Erythrocyte distribution width (RBC) [Entitic vol] 48.8 fL 35.1-43.9 [facility] Hematocrit Auto (Bld) [Volum e fraction]Ordered By: Martín Cornejo on 03-26-2023 Hematocrit (Bld) [Volume fraction] 26.8 % 37-47 [facility] Immature granulocytes/100 WB C Auto (Bld)Ordered By: Martín Cornejo on 03-26-2023 Immature granulocytes/100 WBC (Bld) 3.700 % 0.0-0.9 [facility] Comment on above: IG% - Immature Granu locytes (promyelocytes, myelocytes and metamyelocytes) > 1% indicates that a LEFT SHIFT is Present. International normalized rat io (INR) calculationOrdered By: Martín Cornejo on 03-26-2023 INR Coag (PPP) [Relative time] 3.2 {INR} [facility] Ketones Test strip Ql (U)Ord ered By: Martín Cornejo on 03-26-2023 Ketones Ql (U) Negative Negative [facility] Laboratory - Chemistry and C hemistry - challengeOrdered By: Martín Cornejo on 03-26-2023 CO2 [Moles/Vol] 27.0 mmol/L 21.0-32.0 [facility] Natriuretic peptide B (Bld) [Mass/Vol] 322.3 pg/mL 0-100 [facility] Urea nitrogen/Creatinine [Mass ratio] 34.8 mg/mg 10-20 [facility] Laboratory - CoagulationOrde red By: Martín Cornejo on 03-26-2023 PT Coag (PPP) [Time] 33.3 s 11.7-14.9 [facility] Laboratory - Hematology and Cell countsOrdered By: Martín Cornejo on 03-26-2023 MCH (RBC) [Entitic mass] 27.1 pg 27.0-32.0 [facility] MCHC (RBC) [Mass/Vol] 33.2 g/dL 32-36 [facility] Nucleated RBC/100 WBC (Bld) [Ratio] 0.1 % 0-5 [facility] Platelets (Bld) [#/Vol] 169 10*3/uL 150-450 [facility] Mucus LM Ql (Urine sed)Order ed By: Martín Cornejo on 03-26-2023 Mucus Ql (Urine sed) 0 SEEN /hpf [facility] Nitrite Test strip Ql (U)Ord ered By: Martín Cornjeo on 03-26-2023 Nitrite Ql (U) Negative Negative [facility] No Panel InformationOrdered By: Martín Cornejo on 03-26-2023 Urine RBC 0 SEEN /hpf 0-5 [facility] 0 SEEN /hpf 0-5 [facility] Estimated Creatinine Clearance Calc 49.15 ml/min [facility] Estimated GFR (MDRD) Amer 79 mL/min >60 [facility] Comment on above: GFR Calc Estimated GFR (MDRD) Non-Af Amer 66 mL/min >60 [facility] Comment on above: Non- GFR Calc Troponin I High Sensitivity 20 pg/mL 3.0-54.0 [facility] Comment on above: Please Note: New [place] t Units and Gender Specific Reference Ranges. For more information see Policy Stat Procedure [place] High Sensitivity Troponin (TNIH) and attachments. 20 pg/mL 3.0-54.0 [facility] 322.3 pg/mL 0-100 [facility] Platelet mean volume Nicholas-Ec ker (Bld) [Entitic vol]Ordered By: Martín Cornejo on 03-26-2023 Platelet mean volume (Bld) [Entitic vol] 9.9 fL 6.2-12.0 [facility] Protein Test strip Ql (U)Ord ered By: Martín Cornejo on 03-26-2023 Protein Ql (U) 30 mg/dl Negative [facility] RBC Auto (Bld) [#/Vol]Ordere d By: Martín Cornejo on 03-26-2023 RBC (Bld) [#/Vol] 3.29 10*6/uL 4.2-5.4 [facility] Review by pathologistOrdered By: Martín Cornejo on 03-26-2023 Pathologist review Donte (Unsp spec) [Interp] Dori urbano [facility] Pathologist review Donte (Unsp spec) [Interp] Reviewed [facility] Comment on above: Previous reported re sult: Dori urbano Edited by: RGOOD on 03/27/23:1255Neutrophilic leukocytosis with left shift.Normocytic anemia.Clinical correlation necessary.Landon Ontiveros M.D. 03/27/23 AMENDED REPORT 03/27/23 1255 PATH REV previously reported as: Dori urbano Serum or plasma calcium monica urement (mass/volume)Ordered By: Martín Cornejo on 03-26-2023 Calcium [Mass/Vol] 8.1 mg/dL 8.5-10.1 [facility] Serum or plasma creatinine m easurement (mass/volume)Ordered By: Martín Cornejo on 03-26-2023 Creatinine [Mass/Vol] 0.89 mg/dL 0.55-1.02 [facility] Comment on above: The validity of the calculated GFR & GFRAA in patients over 70 years has not been determined. Clinical correlation is essential. Serum or plasma urea nitroge n measurement (mass/volume)Ordered By: Martín Cornejo on 03-26-2023 Urea nitrogen [Mass/Vol] 31 mg/dL 7-18 [facility] Squamous epithelial cells de tection in urine sediment by light microscopyOrdered By: Martín Cornejo on 03-26-2023 Epithelial cells.squamous LM Ql (Urine sed) 0 SEEN /hpf 5-10 [facility] Thin prep Papanicolaou smear with manual screeningOrdered By: Martín Cornejo on 03-26-2023 Thin prep Papanicolaou smear with manual screening 7 5-15 [facility] Urine blood detectionOrdered By: Martín Cornejo on 03-26-2023 RBC Ql (U) 10 /ul Negative [facility] Urine clarityOrdered By: Ryder Cornejo on 03-26-2023 Clarity (U) Clear Clear [facility] Urine color determinationOrd ered By: Martín Cornejo on 03-26-2023 Color (U) Yellow Yellow [facility] Urine glucose detectionOrder ed By: Martín Cornejo on 03-26-2023 Glucose Ql (U) Normal mg/dl Normal [facility] Urine leukocyte esterase det ection by dipstickOrdered By: Martín Cornejo on 03-26-2023 Leukocyte esterase Test strip Ql (U) Negative Negative [facility] Urine pHOrdered By: Martín rebolledo on 03-26-2023 pH (U) 6.5 [pH] 5.0 - 8.0 [facility] Urine sediment bacteria coun t by microscopy (number/high power field)Ordered By: Martín Cornejo on 03-26-2023 Bacteria LM.HPF (Urine sed) [#/Area] 0 /[HPF] None Seen [facility] Urine specific gravity measu rementOrdered By: Martín Cornejo on 03-26-2023 Specific gravity (U) [Rel density] 1.015 1.002-1.03 0 [facility] Urine urobilinogen measureme ntOrdered By: Martín Cornejo on 03-26-2023 Urobilinogen Ql (U) Normal mg/dl Normal [facility] Basic metabolic 2000 panelon 03-25-2023 Anion gap [Moles/Vol] 11 mmol/L Normal 9-18 [facility] Comment on above: Order Comment: Speci men Type: BLOOD SPECIMEN Ordering Facility: [facility] Address: [address] [place] [address] Performed By: #### 2 4321-2 #### [facility] CLIA [id number] [address] [place] [address] [place] Calcium [Mass/Vol] 8.6 mg/dL Normal 8.5-10.2 [facility] Comment on above: Order Comment: Speci men Type: BLOOD SPECIMEN Ordering Facility: [facility] Address: [address] [place] [address] Performed By: #### 2 4321-2 #### [facility] CLIA [id number] [address] [place] [address] [place] Chloride [Moles/Vol] 96 mmol/L Low 97-105 [facility] Comment on above: Order Comment: Speci men Type: BLOOD SPECIMEN Ordering Facility: [facility] Address: [address] [place] [address] Performed By: #### 2 4321-2 #### [facility] CLIA [id number] [address] CO2 [Moles/Vol] 23 mmol/L Normal 22-30 [facility] Comment on above: Order Comment: Speci men Type: BLOOD SPECIMEN Ordering Facility: [facility] Address: [address] [place] [address] Performed By: #### 2 4321-2 #### [facility] CLIA [id number] [address] Creatinine [Mass/Vol] 0.84 mg/dL Normal 0.58-0.96 [facility] Comment on above: Order Comment: Speci men Type: BLOOD SPECIMEN Ordering Facility: [facility] Address: [address] [place] [address] Performed By: #### 2 4321-2 #### [facility] CLIA [id number] [address] Creatinine and Glomerular filtration rate.predicted panel (S/P/Bld) 73 mL/min/1.73m??? Normal >=60 [facility] Comment on above: Order Comment: Speci men Type: BLOOD SPECIMEN Ordering Facility: [facility] Address: [address] [place] [address] Result Comment: Meaghan mated Glomerular Filtration Rate (eGFR) is calculated using the 2020 CKD-EPI creatinine equation. This equation utilizes serum creatinine, sex, and age as parameters. The creatinine assay has traceable calibration to isotope dilution-mass spectrometry. Refer to KDIGO guidelines for clinical interpretation. In patients with unstable renal function, e.g. those with acute kidney injury, the eGFR may not accurately reflect actual GFR. Performed By: #### 2 4321-2 #### [facility] CLIA [id number] [address] [facility] Glucose [Mass/Vol] 134 mg/dL High 74-99 [facility] Comment on above: Order Comment: Speci men Type: BLOOD SPECIMEN Ordering Facility: [facility] Address: [address] [place] [address] Result Comment: The [place] Diabetes [employer] (ADA) provides guidance for cutoff values for fasting glucose and random glucose. The ADA defines fasting as no caloric intake for at least 8 hours. Fasting plasma glucose results between 100 to 125 mg/dL indicate increased risk for diabetes (prediabetes). Fasting plasma glucose results greater than or equal to 126 mg/dL meet the criteria for diagnosis of diabetes. In the absence of unequivocal hyperglycemia, results should be confirmed by repeat testing. In a patient with classic symptoms of hyperglycemia or hyperglycemic crisis, random plasma glucose results greater than or equal to 200 mg/dL meet the criteria for diagnosis of diabetes. Reference: Standards of Medical Care in Diabetes 2016, [place] [employer]. Diabetes Care. 2016.39(Suppl 1). Performed By: #### 2 4321-2 #### [facility] CLIA [id number] [address] [place] [facility] Potassium [Moles/Vol] 3.9 mmol/L Normal 3.7-5.1 [facility] Comment on above: Order Comment: Renay adkins Type: BLOOD SPECIMEN Ordering Facility: [facility] Address: [address] [place] [address] Performed By: #### 2 4321-2 #### [facility] CLIA [id number] [address] Sodium [Moles/Vol] 130 mmol/L Low 136-144 [facility] Comment on above: Order Comment: Renay adkins Type: BLOOD SPECIMEN Ordering Facility: [facility] Address: [address] [place] [address] Performed By: #### 2 4321-2 #### [facility] CLIA [id number] [address] [place] Urea nitrogen [Mass/Vol] 27 mg/dL High 7-21 [facility] Comment on above: Order Comment: Renay adkins Type: BLOOD SPECIMEN Ordering Facility: [facility] Address: [address] [place] [address] Performed By: #### 2 4321-2 #### [facility] CLIA [id number] [address] [place] CBC panel Auto (Bld)on 03-25 Erythrocyte distribution width (RBC) [Ratio] 17.8 % High 11.5-15.0 [facility] Comment on above: Order Comment: Speci men Type: BLOOD SPECIMEN Ordering Facility: [facility] Address: [address] [place] [address] Performed By: #### 1 4196-0, 73881-8 #### [facility] CLIA [id number] [address] [place] [facility] Hematocrit (Bld) [Volume fraction] 26.8 % Low 36.0-46.0 [facility] Comment on above: Order Comment: Speci men Type: BLOOD SPECIMEN Ordering Facility: [facility] Address: [address] [place] [address] Performed By: #### 1 4196-0, 62611-2 #### [facility] CLIA [id number] [address] [place] [address] [facility] Hemoglobin (Bld) [Mass/Vol] 8.9 g/dL Low 11.5-15.5 [facility] Comment on above: Order Comment: Speci men Type: BLOOD SPECIMEN Ordering Facility: [facility] Address: [address] [place] [address] Performed By: #### 1 4196-0, 19004-0 #### [facility] CLIA [id number] [address] [place] [address] [facility] MCH (RBC) [Entitic mass] 27.1 pg Normal 26.0-34.0 [facility] Comment on above: Order Comment: Speci men Type: BLOOD SPECIMEN Ordering Facility: [facility] Address: [address] [place] [address] Performed By: #### 1 4196-0, 48828-3 #### [facility] CLIA [id number] [address] [place] [address] [place] MCHC (RBC) [Mass/Vol] 33.2 g/dL Normal 30.5-36.0 [facility] Comment on above: Order Comment: Speci men Type: BLOOD SPECIMEN Ordering Facility: [facility] Address: [address] [place] [address] Performed By: #### 1 4196-0, 44985-9 #### [facility] CLIA [id number] [address] MCV (RBC) [Entitic vol] 81.5 fL Normal 80.0-100.0 [facility] Comment on above: Order Comment: Speci men Type: BLOOD SPECIMEN Ordering Facility: [facility] Address: [address] [place] [address] Performed By: #### 1 4196-0, 76554-9 #### [facility] CLIA [id number] [address] OF [place] Nucleated RBC (Bld) [#/Vol] 0.04 10*3/uL High <0.01 [facility] Comment on above: Order Comment: Speci men Type: BLOOD SPECIMEN Ordering Facility: [facility] Address: [address] [place] [address] Performed By: #### 1 4196-0, 49941-1 #### [facility] CLIA [id number] [address] Platelet mean volume (Bld) [Entitic vol] 10.0 fL Normal 9.0-12.7 [facility] Comment on above: Order Comment: Speci men Type: BLOOD SPECIMEN Ordering Facility: [facility] Address: [address] [place] [address] Performed By: #### 1 4196-0, 68366-5 #### [facility] CLIA [id number] [address] Platelets (Bld) [#/Vol] 172 10*3/uL Normal 150-400 [facility] Comment on above: Order Comment: Speci men Type: BLOOD SPECIMEN Ordering Facility: [facility] Address: [address] [place] [address] Performed By: #### 1 4196-0, 72266-4 #### [facility] CLIA [id number] [address] [place] [address] [place] RBC (Bld) [#/Vol] 3.29 10*6/uL Low 3.90-5.20 [facility] Comment on above: Order Comment: Speci men Type: BLOOD SPECIMEN Ordering Facility: [facility] Address: [address] [place] [address] Performed By: #### 1 4196-0, 88257-5 #### [facility] CLIA [id number] [address] [place] [id number] [facility] WBC (Bld) [#/Vol] 13.55 10*3/uL High 3.70-11.00 [facility] Comment on above: Order Comment: Speci men Type: BLOOD SPECIMEN Ordering Facility: [facility] Address: [address] [place] [address] Performed By: #### 1 4196-0, 04863-7 #### [facility] CLIA [id number] [address] [facility] CNDSon 03-25-2023 CNDS HNO ID: [id number] Author: SHARAN RIVAS MD Service: Hospital Medicine Author Type: Physician Type: Discharge Summary Filed: 03/25/2023 14:51 Note Text: DISCHARGE SUMMARY PATIENT NAME: Haydee Bustamanet ADMISSION DATE: 03/19/2023 DISCHARGE DATE: 03/25/2023 ATTENDING PHYSICIAN: Sharan Rivas MD Code Status: Full Code Highest Readmission Risk Score: 38 The 30 day readmissions risk score is derived from an internally validated risk model which evaluates patient level characteristics, utilization history, medication orders and lab results up until the day of discharge. Patients with a score of 40 or above are considered highest risk for readmission. Specific patient level drivers will be listed at the bottom of the summary. CONSULTING TEAMS DURING HOSPITALIZATION: Treatment Team: Attending Provider: Sharan Rivas MD Consulting: Alexi Marin MD Primary Service: [facility] Consulting: Geno Camacho MD REASON FOR HOSPITALIZATION: Hemoptysis DIAGNOSIS: Principal Problem: Pneumatosis intestinalis (POA: Yes) Active Problems: Rheumatoid arthritis (HCC) (POA: Yes) Aortic valve stenosis (POA: Yes) COVID-19 (POA: Yes) Hemoptysis (POA: Yes) Gram-negative infection (POA: No) Anaerobic bacterial infection (POA: No) History of immunosuppressive therapy (POA: Yes) History of penicillin allergy (POA: Yes) Counseling, unspecified (POA: No) Encounter for long-term (current) use of antibiotics (POA: Yes) Histoplasmosis (POA: Yes) Resolved Problems: * No resolved hospital problems. 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 She was found to be COVID-19 positive in [place]. Imaging showed intraperitoneal air and pneumatosis intestinalis and patient was transferred to [facility]. Pulmonology was consulted and patient was started on remdesivir and Decadron for COVID-19 given her immunocompromise status. ID was consulted and she was continued on itraconazole, and started on Cipro and Flagyl. Surgery was involved with no surgical plans. Repeat CT abdomen pelvis showed improvement in her pneumatosis intestinalis. Patient remained clinically stable with no clinical signs of peritonitis. She did not have any respiratory distress or any signs of hemoptysis. Echo done during the encounter showed moderately severe aortic stenosis and moderate mitral stenosis. Cardiology was consulted and advised excessive drop in afterload and outpatient evaluation for TAVR VS possible mitral valve repair with SAVR if creatinines continue to be high. Patient is being discharged home and asked to follow-up with Dr. Hart in 3 months, her PCP in a week and cardiology Transitions of Care Critical Issues: Stop taking it irbesartan HCTZ Take ciprofloxacin and metronidazole as per AVS Continue to take itraconazole solution 2 times daily and follow-up with Dr. Hart in 3 months Take Imodium capsule 3 times daily as needed for diarrhea for 7 days Take dexamethasone for 4 more days Follow-up with cardiology LABS AND PROCEDURES PENDING AT DISCHARGE: Test Results Not Yet Available from This Hospitalization: Please Review at Your Follow Up Appointment Order Current Status LAB EXTRA TUBES In process LIGHT GREEN TOP EXTRA TUBE In process PATIENT CONDITION AT DISCHARGE: Improved DISCHARGE DISPOSITION: Home with Self Care Discharge Physical Exam: VITAL SIGNS: BP 112/64 Pulse 64 Temp 36.4 ?C (97.5 ?F) (Axillary) Resp 20 Ht 160 cm (5' 3") Wt 57.8 kg (127 lb 6.8 oz) SpO2 97% BMI 22.57 kg/m? GENERAL: Alert, no distress, cooperative LUNGS: Lungs clear to auscultation, Good diaphragmatic excursion CARDIAC: Normal S1 and S2; no rubs, murmurs, or gallops ABDOMEN: Abdomen soft, non-tender, BS normal, No masses or organomegaly INFORMATION PROVIDED TO PATIENT: N/A WOUND/SURGICAL SITE CARE: None DIET: Resume pre-hospital diet ACTIVITY: Resume pre-hospital activity ALLERGIES Allergen Reactions Penicillins Hives DISCHARGE MEDICATION: Medication List START taking these medications ciprofloxacin HCl 500 mg tablet Commonly known as: CIPRO Take 1 tablet by mouth every 12 hours at 6 am and 6 pm for 3 doses. dexAMETHasone 6 mg tablet Commonly known as: DECADRON Take 1 tablet by mouth daily with breakfast for 4 doses. Start taking on: March 26, 2023 itraconazole 10 mg/mL solution Commonly known as: SPORANOX Take 20 mL by mouth two times a day. Replaces: itraconazole 100 mg capsule loperamide 2 mg cap(s) Commonly known as: IMODIUM Take 1 capsule by mouth three times a day as needed for diarrhea for up to 7 days. metroNIDAZOLE 500 mg tablet Commonly known as: FLAGYL Take 1 tablet by mouth every 8 hours for 5 doses. CHANGE how you take (more content not included)... Normal [facility] CONSULT PROGon 03-25-2023 CONSULT PROG HNO ID: [id number] Author: BRISSA LIMA RPh Service: Pharmacy Author Type: Pharmacist Type: Consult Progress Note Filed: 03/25/2023 10:17 Note Text: PHARMACY ANTICOAGULATION CONSULT PATIENT NAME: Haydee Bustamante DATE of SERVICE: 03/25/2023 TIME of SERVICE: 10:06 AM Indication for Anticoagulation: DVT Goal INR: 1.7 - 2.2 On 03/24 Changed from previous INR goal to this lower goal, which appears to be her home INR goal based on most recent anticoag clinic note on 03/02/23. Unsure why the patient has a lower goal. Expected Duration of Therapy: Indefinite Assessment: New Start: No Home Dose: warfarin 5 mg once daily Managed at [facility] 03/19: INR on arrival to [place] was 9. She was given Vitamin K and transferred here. Coumadin was withheld given supratherapeutic INR. Other Anticoagulants: None Dosing Considerations/Precautions: None Drug Interactions: Ciprofloxacin (day ~) Flagyl (day ~) Itraconazole (home med) Acetaminophen doses >2g/d (getting 3900 mg) Evidence of side effects?: No Plan: Patient is currently therapeutic. Based on the dosing algorithm approved by the hospital Pharmacy and Therapeutics Committee, the following order will be initiated: Warfarin 2.5 mg PO x 1 dose Date INR Warfarin Dose 03/23/23 2.1 Dose refused by patient 03/24/23 2 3.75 mg 03/25/23 2 2.5 mg planned Will reduce dose to 2.5 mg today (50% reduction in home dose). I am reducing the dose due to the two new interacting medications (cipro, metronidazole), lower INR goal, and the fact that her INR has remained > 2 since admission on 03/19 despite receiving no warfarin during this time. Of note, HANDPs state vitamin K was administered in outlying ED, however I do not seen an order for this and INR slowly declined instead of rapidly decreasing, so it does not appear vitamin K was given. Cipro and metronidazole last doses are scheduled for 03/26 evening. Patient?s INR, condition, and signs/symptoms of bleeding will be monitored daily. Recommended post discharge dosing: TBD; may need lower dose Thank you for allowing me to participate in the care for this patient. Current Laboratory Values Recent Labs 03/25/23 0258 03/24/23 0158 03/23/23 0231 03/22/23 0325 INR 2.0* 2.0* 2.1* 2.5* Recent Labs 03/25/23 0258 03/24/23 0158 03/23/23 0235 03/22/23 0325 HB 8.9* 9.1* 7.7* 8.1* HCT 26.8* 26.5* 22.8* 23.1* PLT 172 167 157 148* Estimated Creatinine Clearance: 47.9 mL/min (based on SCr of 0.84 mg/dL). Current Medications Current Facility-Administered Medications Medication Dose Route Frequency [...] Puff inhaler (DULERA) 2 Puff INHALATION BID itraconazole 200 mg oral liquid (SPORANOX) 200 mg ORAL BID phenol 1 [place] (CHLORASEPTIC) 1 [place] MUCOUS MEMBRANE (TOPICAL MOUTH AND THROAT) q 2 H PRN iv contrast (radiology procedure) INTRAVENOUS DIRECTED PRN ciprofloxacin HCl 500 mg tab(s) (CIPRO) 500 mg ORAL q 12 H 6a/6p metroNIDAZOLE 500 mg tab(s) (FLAGYL) 500 mg ORAL q 8 H WARFARIN DOSING PER PHARMACY 1 Each OTHER DAILY - WARFARIN loperamide 2 mg cap(s) (IMODIUM) 2 mg ORAL TID PRN Has patient received education: No- home med Signature: Brissa Lima [facility] Pager/Extension: [phone] [facility] NURSING PROGon 03-25-2023 NURSING PROG HNO ID: [id number] Author: ARMEN FERNANDEZ RN Service: Nursing Author Type: Registered Nurse Type: Nursing Progress Note Filed: 03/25/2023 14:31 Note Text: This RN spoke with Dr. Rivas regarding sepsis BPA alert, no new orders at this time, pt remains stable. Normal [facility] PT panel Coag (PPP)on 2023 INR Coag (PPP) [Relative time] 2.0 {INR} High 0.9-1.3 [facility] Comment on above: Order Comment: Renay adkins Type: BLOOD SPECIMEN Ordering Facility: [facility] Address: [address] [id number] Result Comment: Halle min K Antagonist (VKA) Therapeutic Range: INR 2 to 3 (Target INR of 2.5) Note: For patients treated with VKA drugs, such as warfarin, the [place] [employer] 2012 Guideline recommends a therapeutic INR range of 2 to 3 (target INR of 2.5). This recommendation includes high-risk patients with antiphospholipid syndrome with previous arterial or venous thromboembolism, current-generation mechanical or bioprosthetic aortic heart valve replacement. Note: Patients with mechanical aortic valve replacement and additional risk factors for thromboembolic events (atrial fibrillation, previous thromboembolism, LV dysfunction, hypercoagulable conditions) or an older generation mechanical AVR (i.e., ball in-Cage) or any mechanical MVR should have a INR therapeutic range of 2.5 to 3.5 (target INR of 3). Lia ALEXIS, et al. Chest 2012, 141:7S-47S Mitzi RA, et al. JAC 2017, 70: 252-289 Performed By: #### 1 4196-0, 18566-8 #### [facility] CLIA [id number] [address] [place] PT Coag (PPP) [Time] 20.0 s High 9.7-13.0 [facility] Comment on above: Order Comment: Renay adkins Type: BLOOD SPECIMEN Ordering Facility: [facility] Address: [address] [place] [address] Performed By: #### 1 4196-0, 60199-6 #### [facility] CLIA [id number] [address] [place] [address] [place] Basic metabolic 2000 panelon 03-24-2023 Anion gap [Moles/Vol] 10 mmol/L Normal 9-18 [facility] Comment on above: Order Comment: Renay adkins Type: BLOOD SPECIMEN Ordering Facility: [facility] Address: [address] [place] [address] Performed By: #### 1 4196-0, 08652-1 #### [facility] CLIA [id number] [address] [place] Calcium [Mass/Vol] 8.8 mg/dL Normal 8.5-10.2 [facility] Comment on above: Order Comment: Speci men Type: BLOOD SPECIMEN Ordering Facility: [facility] Address: [address] [place] [address] Performed By: #### 1 4196-0, 09374-8 #### [facility] CLIA [id number] [address] [place] Chloride [Moles/Vol] 98 mmol/L Normal 97-105 [facility] Comment on above: Order Comment: Speci men Type: BLOOD SPECIMEN Ordering Facility: [facility] Address: [address] [place] [address] Performed By: #### 1 4196-0, 12566-7 #### [facility] CLIA [id number] [address] [place] CO2 [Moles/Vol] 24 mmol/L Normal 22-30 [facility] Comment on above: Order Comment: Speci men Type: BLOOD SPECIMEN Ordering Facility: [facility] Address: [address] [place] [address] Performed By: #### 1 4196-0, 85295-4 #### [facility] CLIA [id number] [address] [place] Creatinine [Mass/Vol] 0.89 mg/dL Normal 0.58-0.96 [facility] Comment on above: Order Comment: Speci men Type: BLOOD SPECIMEN Ordering Facility: [facility] Address: [address] [place] [address] Performed By: #### 1 4196-0, 06973-6 #### [facility] CLIA [id number] [address] [place] Creatinine and Glomerular filtration rate.predicted panel (S/P/Bld) 68 mL/min/1.73m??? Normal >=60 [facility] Comment on above: Order Comment: Renay adkins Type: BLOOD SPECIMEN Ordering Facility: [facility] Address: [address] [place] [address] Result Comment: Meaghan mated Glomerular Filtration Rate (eGFR) is calculated using the 2020 CKD-EPI creatinine equation. This equation utilizes serum creatinine, sex, and age as parameters. The creatinine assay has traceable calibration to isotope dilution-mass spectrometry. Refer to KDIGO guidelines for clinical interpretation. In patients with unstable renal function, e.g. those with acute kidney injury, the eGFR may not accurately reflect actual GFR. Performed By: #### 1 4196-0, 47083-5 #### [facility] CLIA [id number] [address] [place] [address] [place] Glucose [Mass/Vol] 125 mg/dL High 74-99 [facility] Comment on above: Order Comment: Renay adkins Type: BLOOD SPECIMEN Ordering Facility: [facility] Address: [address] [place] [address] Result Comment: The [place] [employer] (ADA) provides guidance for cutoff values for fasting glucose and random glucose. The ADA defines fasting as no caloric intake for at least 8 hours. Fasting plasma glucose results between 100 to 125 mg/dL indicate increased risk for diabetes (prediabetes). Fasting plasma glucose results greater than or equal to 126 mg/dL meet the criteria for diagnosis of diabetes. In the absence of unequivocal hyperglycemia, results should be confirmed by repeat testing. In a patient with classic symptoms of hyperglycemia or hyperglycemic crisis, random plasma glucose results greater than or equal to 200 mg/dL meet the criteria for diagnosis of diabetes. Reference: Standards of Medical Care in Diabetes 2016, [place] [employer]. Diabetes Care. 2016.39(Suppl 1). Performed By: #### 1 4196-0, 58816-6 #### [facility] CLIA [id number] [address] [place] [address] [place] Potassium [Moles/Vol] 4.1 mmol/L Normal 3.7-5.1 [facility] Comment on above: Order Comment: Renay adkins Type: BLOOD SPECIMEN Ordering Facility: [facility] Address: [address] [place] [address] Performed By: #### 1 4196-0, 31762-8 #### [facility] CLIA [id number] [address] Sodium [Moles/Vol] 132 mmol/L Low 136-144 [facility] Comment on above: Order Comment: Speci men Type: BLOOD SPECIMEN Ordering Facility: [facility] Address: [address] [place] [address] Performed By: #### 1 4196-0, 09876-8 #### [facility] CLIA [id number] [address] [place] Urea nitrogen [Mass/Vol] 32 mg/dL High 7-21 [facility] Comment on above: Order Comment: Speci men Type: BLOOD SPECIMEN Ordering Facility: [facility] Address: [address] [place] [address] Performed By: #### 1 4196-0, 10322-4 #### [facility] CLIA [id number] [address] [place] C diff Tox gens Stl Ql GWEN+p robeon 03-24-2023 C. difficile toxin genes GWEN+probe Ql (Stl) Negative Normal Negative for C. difficile toxin by PCR [facility] Comment on above: Order Comment: Speci men Type: STOOL SPECIMEN Ordering Facility: [facility] Address: [address] [place] [address] Performed By: #### 5 4067-4 #### [facility] CLIA [id number] [address] [place] CBC panel Auto (Bld)on 03-24 Erythrocyte distribution width (RBC) [Ratio] 17.2 % High 11.5-15.0 [facility] Comment on above: Order Comment: Speci men Type: BLOOD SPECIMEN Ordering Facility: [facility] Address: [address] [place] [address] Performed By: #### 1 4196-0, 37129-8 #### [facility] CLIA [id number] [address] [place] Hematocrit (Bld) [Volume fraction] 26.5 % Low 36.0-46.0 [facility] Comment on above: Order Comment: Speci men Type: BLOOD SPECIMEN Ordering Facility: [facility] Address: [address] [place] [address] Performed By: #### 1 4196-0, 55750-7 #### [facility] CLIA [id number] [address] [place] Hemoglobin (Bld) [Mass/Vol] 9.1 g/dL Low 11.5-15.5 [facility] Comment on above: Order Comment: Speci men Type: BLOOD SPECIMEN Ordering Facility: [facility] Address: [address] [place] [address] Performed By: #### 1 4196-0, 25864-7 #### [facility] CLIA [id number] [address] [place] [address] MCH (RBC) [Entitic mass] 27.4 pg Normal 26.0-34.0 [facility] Comment on above: Order Comment: Speci men Type: BLOOD SPECIMEN Ordering Facility: [facility] Address: [address] [place] [address] Performed By: #### 1 4196-0, 27432-6 #### [facility] CLIA [id number] [address] [place] [address] [place] MCHC (RBC) [Mass/Vol] 34.3 g/dL Normal 30.5-36.0 [facility] Comment on above: Order Comment: Speci men Type: BLOOD SPECIMEN Ordering Facility: [facility] Address: [address] [place] [address] Performed By: #### 1 4196-0, 23660-0 #### [facility] CLIA [id number] [address] [place] [address] [place] MCV (RBC) [Entitic vol] 79.8 fL Low 80.0-100.0 [facility] Comment on above: Order Comment: Speci men Type: BLOOD SPECIMEN Ordering Facility: [facility] Address: [address] [place] [address] Performed By: #### 1 4196-0, 32587-6 #### [facility] CLIA [id number] [address] [place] Nucleated RBC (Bld) [#/Vol] 10*3/uL Normal <0.01 [facility] Comment on above: Order Comment: Speci men Type: BLOOD SPECIMEN Ordering Facility: [facility] Address: [address] [place] [address] Performed By: #### 1 4196-0, 93882-8 #### [facility] CLIA [id number] [address] [place] [address] [place] Platelet mean volume (Bld) [Entitic vol] 10.6 fL Normal 9.0-12.7 [facility] Comment on above: Order Comment: Speci men Type: BLOOD SPECIMEN Ordering Facility: [facility] Address: [address] [place] [address] Performed By: #### 1 4196-0, 66942-7 #### [facility] CLIA [id number] [address] [place] [address] [place] Platelets (Bld) [#/Vol] 167 10*3/uL Normal 150-400 [facility] Comment on above: Order Comment: Speci men Type: BLOOD SPECIMEN Ordering Facility: [facility] Address: [address] [place] [address] Performed By: #### 1 4196-0, 55595-2 #### [facility] CLIA [id number] [address] [place] [address] [place] RBC (Bld) [#/Vol] 3.32 10*6/uL Low 3.90-5.20 [facility] Comment on above: Order Comment: Speci men Type: BLOOD SPECIMEN Ordering Facility: [facility] Address: [address] [place] [address] Performed By: #### 1 4196-0, 30431-9 #### [facility] CLIA [id number] [address] [place] [address] [place] WBC (Bld) [#/Vol] 12.21 10*3/uL High 3.70-11.00 [facility] Comment on above: Order Comment: Speci men Type: BLOOD SPECIMEN Ordering Facility: [facility] Address: [address] [place] [address] [place] [address] Performed By: #### 1 4196-0, 06414-8 #### [facility] CLIA [id number] [address] [id number] [facility] CONSULT PROGon 03-24-2023 CONSULT PROG HNO ID: [id number] Author: BRISSA LIMA RPh Service: Pharmacy Author Type: Pharmacist Type: Consult Progress Note Filed: 03/24/2023 09:52 Note Text: PHARMACY ANTICOAGULATION CONSULT PATIENT NAME: Haydee Bustamante DATE of SERVICE: 03/24/2023 TIME of SERVICE: 9:40 AM Indication for Anticoagulation: DVT Goal INR: 1.7 - 2.2 Recommended changing previous INR goal to this lower goal, which appears to be her home INR goal based on most recent anticoag clinic note on 03/02/23. Unsure why the patient has a lower goal. Expected Duration of Therapy: Indefinite Assessment: New Start: No Home Dose: warfarin 5 mg once daily Managed at [facility] 03/19: INR on arrival to [place] was 9. She was given Vitamin K and transferred here. Coumadin was withheld given supratherapeutic INR. Other Anticoagulants: Other, (specify): no therapeutic anticoagulation; on Lovenox 40 mg daily > recommended to discontinue Dosing Considerations/Precautions: None Drug Interactions: Ciprofloxacin (day ~3 5) Flagyl (day ~3 ) Itraconazole (home med) Acetaminophen doses >2g/d (getting 3900 mg) Evidence of side effects?: No Plan: Patient is currently therapeutic. Based on the dosing algorithm approved by the hospital Pharmacy and Therapeutics Committee, the following order will be initiated: Warfarin 2.5 mg PO x 1 dose Date INR Warfarin Dose 03/23/23 2.1 Dose refused by patient 03/24/23 2 3.75 mg planned I will administer a 25% reduction from the patient's usual dose given that metronidazole and ciprofloxacin are both new meds which can increase the INR. Of note, itraconazole appears to be a home med. Further dose reductions may be required; 25% reduction was chosen today due to the interactions + missed dose yesterday. Patient?s INR, condition, and signs/symptoms of bleeding will be monitored daily. Recommended post discharge dosing: Warfarin 5 mg, orally once daily, with an INR check in 5 days. Thank you for allowing me to participate in the care for this patient. Current Laboratory Values Recent Labs 03/24/23 0158 03/23/23 02303/22/2332403/21/23 0425 INR 2.0* 2.1* 2.5* 3.9* Recent Labs 03/24/23 01503/23/23 0235 03/22/2332403/21/23 0425 HB 9.1* 7.7* 8.1* 8.6* HCT 26.5* 22.8* 23.1* 25.9* PLT 167 157 148* 148* Estimated Creatinine Clearance: 45.2 mL/min (based on SCr of 0.89 mg/dL). Current Medications Current Facility-Administered Medications Medication Dose Route Frequency [...] (SPORANOX) 200 mg ORAL BID phenol 1 [place] (CHLORASEPTIC) 1 [place] MUCOUS MEMBRANE (TOPICAL MOUTH AND THROAT) q 2 H PRN enoxaparin 40 mg injection (LOVENOX) 40 mg SUBCUTANEOUS q 24 HR iv contrast (radiology procedure) INTRAVENOUS DIRECTED PRN ciprofloxacin HCl 500 mg tab(s) (CIPRO) 500 mg ORAL q 12 H 6a/6p metroNIDAZOLE 500 mg tab(s) (FLAGYL) 500 mg ORAL q 8 H WARFARIN DOSING PER PHARMACY 1 Each OTHER DAILY - WARFARIN Has patient received education: No- home med Signature: Brissa Lima [facility] Pager/Extension: [phone] Normal [facility] PT panel Coag (PPP)on 2023 INR Coag (PPP) [Relative time] 2.0 {INR} High 0.9-1.3 [facility] Comment on above: Order Comment: Speci men Type: BLOOD SPECIMEN Ordering Facility: [facility] Address: [address] [place] [address] Result Comment: Halle min K Antagonist (VKA) Therapeutic Range: INR 2 to 3 (Target INR of 2.5) Note: For patients treated with VKA drugs, such as warfarin, the [place] [employer] 2012 Guideline recommends a therapeutic INR range of 2 to 3 (target INR of 2.5). This recommendation includes high-risk patients with antiphospholipid syndrome with previous arterial or venous thromboembolism, current-generation mechanical or bioprosthetic aortic heart valve replacement. Note: Patients with mechanical aortic valve replacement and additional risk factors for thromboembolic events (atrial fibrillation, previous thromboembolism, LV dysfunction, hypercoagulable conditions) or an older generation mechanical AVR (i.e., ball in-Cage) or any mechanical MVR should have a INR therapeutic range of 2.5 to 3.5 (target INR of 3). Lia ALEXIS, et al. Chest 2012, 141:7S-47S Mitzi RA, et al. JAC 2017, 70: 252-289 Performed By: #### 1 4196-0, 34069-5 #### [facility] CLIA [id number] [address] [facility] PT Coag (PPP) [Time] 19.7 s High 9.7-13.0 [facility] Comment on above: Order Comment: Speci men Type: BLOOD SPECIMEN Ordering Facility: [facility] Address: [address] [place] [address] Performed By: #### 1 4196-0, 60529-1 #### [facility] CLIA [id number] [address] [place] [address] CBC W Ordered Manual Differe ntial panel (Bld)on 03-23-2023 ANISOCYTOSIS Present Normal [facility] Comment on above: Order Comment: Speci men Type: BLOOD SPECIMEN Ordering Facility: [facility] Address: [address] [place] [address] Performed By: #### 1 4196-0, 15346-8 #### [facility] CLIA [id number] [address] Basophils (Bld) [#/Vol] 0.00 10*3/uL Normal <0.11 [facility] Comment on above: Order Comment: Speci men Type: BLOOD SPECIMEN Ordering Facility: [facility] Address: [address] [place] [address] Performed By: #### 1 4196-0, 84340-7 #### [facility] CLIA [id number] [address] Basophils/100 WBC (Bld) 0.0 % Normal [facility] Comment on above: Order Comment: Speci men Type: BLOOD SPECIMEN Ordering Facility: [facility] Address: [address] [place] [address] Performed By: #### 1 4196-0, 79432-1 #### [facility] CLIA [id number] [address] [place] Differential cell count method Nom (Bld) Manual Normal [facility] Comment on above: Order Comment: Speci men Type: BLOOD SPECIMEN Ordering Facility: [facility] Address: [address] [place] [address] Performed By: #### 1 4196-0, 70879-6 #### [facility] CLIA [id number] [address] [facility] Eosinophils (Bld) [#/Vol] 0.00 10*3/uL Normal <0.46 [facility] Comment on above: Order Comment: Speci men Type: BLOOD SPECIMEN Ordering Facility: [facility] Address: [address] [place] [address] Performed By: #### 1 4196-0, 85562-9 #### [facility] CLIA [id number] [address] [place] [address] Eosinophils/100 WBC (Bld) 0.0 % Normal [facility] Comment on above: Order Comment: Speci men Type: BLOOD SPECIMEN Ordering Facility: [facility] Address: [address] [place] [address] Performed By: #### 1 4196-0, 08067-5 #### [facility] CLIA [id number] [address] [place] [address] Erythrocyte distribution width (RBC) [Ratio] 16.6 % High 11.5-15.0 [facility] Comment on above: Order Comment: Speci men Type: BLOOD SPECIMEN Ordering Facility: [facility] Address: [address] [place] [address] Performed By: #### 1 4196-0, 12227-0 #### [facility] CLIA [id number] [address] Hematocrit (Bld) [Volume fraction] 22.8 % Low 36.0-46.0 [facility] Comment on above: Order Comment: Speci men Type: BLOOD SPECIMEN Ordering Facility: [facility] Address: [address] [place] [address] Performed By: #### 1 4196-0, 63390-0 #### [facility] CLIA [id number] [address] Hemoglobin (Bld) [Mass/Vol] 7.7 g/dL Low 11.5-15.5 [facility] Comment on above: Order Comment: Speci men Type: BLOOD SPECIMEN Ordering Facility: [facility] Address: [address] [place] [address] Performed By: #### 1 4196-0, 21426-9 #### [facility] CLIA [id number] [address] [facility] Lymphocytes (Bld) [#/Vol] 0.88 10*3/uL Low 1.00-4.00 [facility] Comment on above: Order Comment: Speci men Type: BLOOD SPECIMEN Ordering Facility: [facility] Address: [address] [place] [address] Performed By: #### 1 4196-0, 54274-7 #### [facility] CLIA [id number] [address] Lymphocytes/100 WBC (Bld) 7.0 % Normal [facility] Comment on above: Order Comment: Speci men Type: BLOOD SPECIMEN Ordering Facility: [facility] Address: [address] [place] [address] Performed By: #### 1 4196-0, 99213-5 #### [facility] CLIA [id number] [address] [place] MCH (RBC) [Entitic mass] 27.3 pg Normal 26.0-34.0 [facility] Comment on above: Order Comment: Speci men Type: BLOOD SPECIMEN Ordering Facility: [facility] Address: [address] [place] [address] Performed By: #### 1 4196-0, 88448-6 #### [facility] CLIA [id number] [address] MCHC (RBC) [Mass/Vol] 33.8 g/dL Normal 30.5-36.0 [facility] Comment on above: Order Comment: Speci men Type: BLOOD SPECIMEN Ordering Facility: [facility] Address: [address] [place] [address] Performed By: #### 1 4196-0, 47976-8 #### [facility] CLIA [id number] [address] MCV (RBC) [Entitic vol] 80.9 fL Normal 80.0-100.0 [facility] Comment on above: Order Comment: Speci men Type: BLOOD SPECIMEN Ordering Facility: [facility] Address: [address] [place] [address] Performed By: #### 1 4196-0, 67648-3 #### [facility] CLIA [id number] [address] [place] [address] META% 2.0 % Normal [facility] Comment on above: Order Comment: Speci men Type: BLOOD SPECIMEN Ordering Facility: [facility] Address: [address] [place] [address] Performed By: #### 1 4196-0, 95794-5 #### [facility] CLIA [id number] [address] [facility] Monocytes (Bld) [#/Vol] 1.00 10*3/uL High <0.87 [facility] Comment on above: Order Comment: Speci men Type: BLOOD SPECIMEN Ordering Facility: [facility] Address: [address] [place] [address] Performed By: #### 1 4196-0, 79429-6 #### [facility] CLIA [id number] [address] Monocytes/100 WBC (Bld) 8.0 % Normal [facility] Comment on above: Order Comment: Speci men Type: BLOOD SPECIMEN Ordering Facility: [facility] Address: [address] [place] [address] Performed By: #### 1 4196-0, 16915-9 #### [facility] CLIA [id number] [address] OF [place] MYELO% 1.0 % Normal [facility] Comment on above: Order Comment: Speci men Type: BLOOD SPECIMEN Ordering Facility: [facility] Address: [address] [place] [address] Performed By: #### 1 4196-0, 85044-3 #### [facility] CLIA [id number] [address] OF [place] Neutrophils (Bld) [#/Vol] 10.25 10*3/uL High 1.45-7.50 [facility] Comment on above: Order Comment: Speci men Type: BLOOD SPECIMEN Ordering Facility: [facility] Address: [address] [place] [address] Performed By: #### 1 4196-0, 50013-9 #### [facility] CLIA [id number] [address] [place] [address] STATES [facility] Neutrophils/100 WBC (Bld) 82.0 % Normal [facility] Comment on above: Order Comment: Speci men Type: BLOOD SPECIMEN Ordering Facility: [facility] Address: [address] [place] [address] Performed By: #### 1 4196-0, 20743-0 #### [facility] CLIA [id number] 1 [place] [address] [place] Nucleated RBC (Bld) [#/Vol] 10*3/uL Normal <0.01 [facility] Comment on above: Order Comment: Speci men Type: BLOOD SPECIMEN Ordering Facility: [facility] Address: [facility] [place] [place] [address] Performed By: #### 1 4196-0, 79656-7 #### [facility] CLIA [id number] [address] OF [place] Nucleated RBC/100 WBC (Bld) [Ratio] 0.0 /100 WBC Normal [facility] Comment on above: Order Comment: Speci men Type: BLOOD SPECIMEN Ordering Facility: [facility] Address: [address] [place] [address] Performed By: #### 1 4196-0, 20496-3 #### [facility] CLIA [id number] [address] OF [place] Ovalocytes LM Ql (Bld) Few Normal [facility] Comment on above: Order Comment: Speci men Type: BLOOD SPECIMEN Ordering Facility: [facility] Address: [address] [place] [address] Performed By: #### 1 4196-0, 64156-5 #### [facility] CLIA [id number] [address] [place] Platelet mean volume (Bld) [Entitic vol] 10.5 fL Normal 9.0-12.7 [facility] Comment on above: Order Comment: Speci men Type: BLOOD SPECIMEN Ordering Facility: [facility] Address: [address] [place] [address] Performed By: #### 1 41960, 18082-2 #### [facility] CLIA [id number] [address] Platelets (Bld) [#/Vol] 157 10*3/uL Normal 150-400 [facility] Comment on above: Order Comment: Speci men Type: BLOOD SPECIMEN Ordering Facility: [facility] Address: [address] [place] [address] Performed By: #### 1 4196-0, 40058-4 #### [facility] CLIA [id number] [address] [place] Platelets Estimate (Bld) [#/Vol] Adequate Normal [facility] Comment on above: Order Comment: Speci men Type: BLOOD SPECIMEN Ordering Facility: [facility] Address: [address] [place] [address] Performed By: #### 1 4196-0, 81533-4 #### [facility] CLIA [id number] [address] Polychromasia LM Ql (Bld) Slight Normal [facility] Comment on above: Order Comment: Speci men Type: BLOOD SPECIMEN Ordering Facility: [facility] Address: [address] [place] [address] Performed By: #### 1 4196-0, 06303-1 #### [facility] CLIA [id number] [address] RBC (Bld) [#/Vol] 2.82 10*6/uL Low 3.90-5.20 [facility] Comment on above: Order Comment: Speci men Type: BLOOD SPECIMEN Ordering Facility: [facility] Address: [address] [place] [address] Performed By: #### 1 4196-0, 13876-9 #### [facility] CLIA [id number] [address] [place] [address] RED CELL MORPH Reviewed: see result s of individual morphologies Normal [facility] Comment on above: Order Comment: Speci men Type: BLOOD SPECIMEN Ordering Facility: [facility] Address: [address] [place] [address] Performed By: #### 1 4196-0, 73219-6 #### [facility] CLIA [id number] [address] WBC (Bld) [#/Vol] 12.50 10*3/uL High 3.70-11.00 [facility] Comment on above: Order Comment: Speci men Type: BLOOD SPECIMEN Ordering Facility: [facility] Address: [address] [place] [address] Performed By: #### 1 4196-0, 16556-3 #### [facility] CLIA [id number] [address] [facility] CNPSusanne 03-23-2023 BORIS Telephone (KEYUR) HAYDEE BUSTAMANTE ([id number]) 1945 F Date Time Provider Department 03/23/23 RACHELLE LEONARD During your visit today, we recorded the following information about you: Rachelle Leonard, SUPERVISOR IRRIGATION.FINANCIAL ANALYSIS ADVISOR 03/23/2023 5:17 PM Signed Please schedule patient to follow with Dr. Hart in 2 months. Thank you Gema Castellanos 03/26/2023 8:01 AM Signed Appointment mailed to pt Gema Castellanos Allergies As of Date: 03/23/2023 Noted Allergy Reaction PENICILLINS 01/04/2005 4 - Hives Date Reviewed: 03/21/2023 Reviewed by: Lilia Olivas, RN - Fully Assessed Reason for Visit: Appointment [186] Prescriptions as of 03/26/2023 - itraconazole (SPORANOX) 10 mg/mL solution Take 20 mL by mouth two times a day. - ciprofloxacin HCl (CIPRO) 500 mg tablet Take 1 tablet by mouth every 12 hours at 6 am and 6 pm for 3 doses. - dexAMETHasone (DECADRON) 6 mg tablet Take 1 tablet by mouth daily with breakfast for 4 doses. - loperamide (IMODIUM) 2 mg cap(s) Take 1 capsule by mouth three times a day as needed for diarrhea for up to 7 days. - metroNIDAZOLE (FLAGYL) 500 mg tablet Take 1 tablet by mouth every 8 hours for 5 doses. - Mucus Clearing Device (QUAKE VIBRATORY PEP) renetta Provide 1 device - budesonide-formoterol (SYMBICORT) 160-4.5 mcg/actuation inhaler USE [...] daily. Inhale two puffs once daily. - naproxen (NAPROSYN) 500 mg tablet Take 1 tablet by mouth twice daily as needed. Take with food - fluticasone (FLONASE) 50 mcg/actuation nasal spray Use 1 [place] in each nostril once daily. - pantoprazole DR (PROTONIX) 40 mg tablet Take 1 tablet by mouth once daily. - albuterol HFA (PROAIR HFA) 90 mcg/actuation inhaler Inhale 2 Puffs as instructed every 4 hours as needed. - vit A,C,B-Zppn-Psampe (OCUVITE PRESERVISION) 2,148 mcg-113 mg-45 mg-17.4mg tab [...] one(1) tablet daily. Facility-Administered Medications as of 03/26/2023 - perflutren lipid microspheres 1.3 mL in NaCl (PF) 0.9% 10 mL injection (DEFINITY) - sodium chloride 0.9 % (flush) 10 mL (BD POSIFLUSH) Meds Comments as of 03/05/2018: 03/05/18 The medications are managed by this patient by: PATIENT Muna Harris ([place] Weaver) [facility] for fpc medications. 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] 03/06/2005 VOICE DISTURBANCE NEC [R49.8] 03/06/2005 Pain in joint, lower leg [M25.569] 10/18/2006 03/02/2018 Embolism and thrombosis (HCC) [I74.9] 11/23/2006 07/07/2021 ARTHROPATHY NOS-UNSPEC [M12.9] 12/05/2006 Enthesopathy of hip region [M76.899] 01/04/2009 07/07/2021 Elevated Liver Enzymes [R74.8] 04/01/2009 Rheumatoid arthritis (HCC) [M06.9] 04/01/2009 03/07/2015 snf current use of anticoagulant therapy *04/01/2009 Hypertension [I10] 04/13/2010 03/07/2015 Right sided sciatica [M54.31] 03/20/2011 03/30/2014 HNP (herniated nucleus pulposus), lumbar [M51.2*03/20/2011 Atrophic vaginitis [N95.2] 03/06/2013 Ganglion cyst [M67.40] 08/17/2014 DVT, recurrent, lower extremity, acute (HCC) [I*12/10/2014 03/03/2018 Essential hypertension [I10] 03/07/2015 Rheumatoid arthritis (HCC) [M06.9] 03/07/2015 Pain in right hip [M25.551] 05/05/2016 Low back pain with right-sided sciatica [M54.41]05/05/2016 History of recurrent deep vein thrombosis (DVT)*10/29/2016 DDD (degenerative disc disease), lumbar [M51.36]07/30/2017 Spondylolisthesis of lumbar region [M43.16] 07/30/2017 Iron deficiency anemia due to chronic blood los*01/24/2018 Disseminated histoplasmosis [B39.9] 03/02/2018 Murmur [R01.1] 03/08/2018 08/05/2018 Anemia [D64.9] 03/08/2018 04/26/2018 Aortic valve stenosis [I35.0] 04/26/2018 Lung nodule [R (more content not included)... Normal [facility] CONSULTon 03-23-2023 CONSULT HNO ID: [id number] Author: CHARLOTTE LAZO MD Service: Cardiovascular Medicine Author Type: Physician Type: Consults Filed: 03/23/2023 10:14 Note Text: CONSULT: CARDIOLOGY SERVICE SERVICE DATE: 03/23/2023 SERVICE TIME: 1000hrs CONSULTING PHYSICIAN: Charlotte Lazo PCP: Claudine Durán MD ATTENDING: Sharan Rivas MD REASON FOR CONSULT: Cardiology Evaluation Subjective CHIEF COMPLAINT: Pneumatosis intestinalis [K63.89] Bowel perforation (HCC) [K63.1] HISTORY OF PRESENT ILLNESS: Ms. Bustamante is a 77 year old female with a history of COPD, DVT [status post IVC filter, on chronic Coumadin], hypertension, rheumatoid arthritis [on chronic immunosuppression], and moderate mitral and aortic stenosis [with bicuspid aortic valve]. Patient presents with progressive cough and weakness over the past month, noted to have suspected pulmonary histoplasmosis with subsequent pneumatosis intestinalis, thought to be due to traumatic coughing or due to infiltration from histoplasma. Was noted to be supratherapeutic with her INR, and have progressive anemia with a drop in her hemoglobin to 7.7 mg/dL. Prior repeat echo shows a hyperdynamic LV with increased SVI and outflow gradients across the aortic valve and inflow gradients across the mitral valve, indicating increase in severity of stenosis. Patient is also septic with a leukocytosis and is being treated for COVID infection as well. PAST MEDICAL HISTORY Diagnosis Date Anemia Bone [...] positive rheumatoid factor (HCC) 03/07/2015 Dr. Hurley ([facility]) Unspecified hemorrhoids without mention of complication [...] SPINE FUSN,POST INTERBODY 2012 Dr. Armando at [facility]. Diskectomy and laminectomy PAST SURGICAL HISTORY OF 03/07/1999 removal facial lesion PAST SURGICAL HISTORY OF 08/17/2014 excision soft tissue mass left index finger TONSILLECTOMY PRIMARY/SECONDARY TRANSCATH RETRIEVAL,PERCUT 12/28/2006 FAMILY HISTORY Problem Relation Age of Onset Cancer Mother brain Social History Tobacco Use Smoking status: Former Packs/day: 1.00 Years: 10.00 Additional pack years: 0.00 Total pack years: 10.00 Types: Cigarettes Quit date: 02/19/1989 Years since quittin.1 Smokeless tobacco: Never Tobacco comments: Late heavy smoker. Vaping Use Vaping Use: Never used Substance Use Topics Alcohol use: Yes Comment: occasional Drug use: No Prior to Admission Medications Prescriptions Last Dose Informant Patient Reported? Taking? Cholecalciferol, Vitamin D3, 1,000 unit ORAL Cap No Yes Sig: Take 1 capsule by mouth once daily. FOLIC ACID ORAL Yes Yes Sig: Take by mouth. HUMIRA PEN 40 mg/0.8 mL pnkt Yes No Sig: Inject 40 mg subcutaneously. Every other week. Irbesartan-hydroCHLOROthiaz jaleel 150-12.5 mg per tablet No Yes Sig: Take 1 tablet by mouth once daily. Mucus Clearing Device (QUAKE VIBRATORY PEP) renetta No No Sig: Provide 1 device THERAPEUTIC MULTIVITAMIN TAB Yes Yes Sig: Take one(1) tablet daily. albuterol HFA (PROAIR HFA) 90 mcg/actuation inhaler No Yes Sig: Inhale 2 Puffs as instructed every 4 hours as needed. budesonide-formoterol (SYMBICORT) 160-4.5 mcg/actuation inhaler No Yes Sig: USE 2 INHALATIONS TWICE A DAY INSTRUCTED fluticasone (FLONASE) 50 mcg/actuation nasal spray No Yes Sig: Use 1 [place] in each nostril once daily. gabapentin (NEURONTIN) 300 mg capsule No Yes Sig: Take 1 capsule by mouth two times a day. itraconazole (SPORANOX) 100 mg capsule No No Sig: Take 2 capsules by mouth as directed. Take 200 mg (2 capsules) three times daily for 3 days, then twice daily. leucovorin (LEUCOVORIN) 15 mg tablet Yes No Sig: Take 15 mg by mouth once daily. methotrexate 2.5 mg tablet Yes No Sig: Take 2.5 mg by mouth every Sunday. PT takes 2 tablets in am and 1 tablets in pm naproxen (NAPROSYN) 500 mg tablet No Yes Sig: Take 1 tablet by mouth twice daily as needed. Keagan (more content not included)... Normal [facility] CONSULT PROGon 03-23-2023 CONSULT PROG HNO ID: [id number] Author: DANY BINGHAM RPh Service: Pharmacy Author Type: Pharmacist Type: Consult Progress Note Filed: 03/23/2023 17:00 Note Text: PHARMACY ANTICOAGULATION CONSULT PATIENT NAME: Haydee Bustamante DATE of SERVICE: 03/23/2023 TIME of SERVICE: 4:06 PM Indication for Anticoagulation: DVT Goal INR: 2.0 to 3.0 Expected Duration of Therapy: Indefinite Assessment: New Start: No Home Dose: Warfarin 5mg once daily Managed at [facility] 03/19: INR on arrival to [place] was 9. She was given Vitamin K and transferred here. Coumadin was withheld given supratherapeutic INR. Other Anticoagulants: Lovenox 40mg daily Dosing Considerations/Precautions: None Drug Interactions: the below may enhance the anticoagulant effect of warfarin Ciprofloxacin Flagyl Itraconazole Acetaminophen doses >2g/d Evidence of side effects?: No Plan: Patient is currently therapeutic. Based on the dosing algorithm approved by the hospital Pharmacy and Therapeutics Committee, the following order will be initiated: Warfarin 5mg PO x 1 dose Date INR Warfarin Dose 03/23/23 2.1 5mg (ordered) Patient?s INR, condition, and signs/symptoms of bleeding will be monitored daily. Recommended post discharge dosing: TBD Thank you for allowing me to participate in the care for this patient. Current Laboratory Values Recent Labs 03/23/23 0231 03/22/23 0325 03/21/23 0425 03/20/23 1110 INR 2.1* 2.5* 3.9* 4.7* Recent Labs 03/23/23 0235 03/22/23 0325 03/21/23 0425 03/20/23 0416 HB 7.7* 8.1* 8.6* 8.1* HCT 22.8* 23.1* 25.9* 24.6* PLT 157 148* 148* 126* Estimated Creatinine Clearance: 48.4 mL/min (based on SCr of 0.83 mg/dL). Current Medications Current Facility-Administered Medications Medication Dose Route Frequency [...] (SPORANOX) 200 mg ORAL BID phenol 1 [place] (CHLORASEPTIC) 1 [place] MUCOUS MEMBRANE (TOPICAL MOUTH AND THROAT) q 2 H PRN enoxaparin 40 mg injection (LOVENOX) 40 mg SUBCUTANEOUS q 24 HR iv contrast (radiology procedure) INTRAVENOUS DIRECTED PRN ciprofloxacin HCl 500 mg tab(s) (CIPRO) 500 mg ORAL q 12 H 6a/6p metroNIDAZOLE 500 mg tab(s) (FLAGYL) 500 mg ORAL q 8 H WARFARIN DOSING PER PHARMACY 1 Each OTHER DAILY - WARFARIN Has patient received education: No Signature: Dany Bingham [facility] Pager/Extension: [phone] Normal [facility] CONSULT PROG HNO ID: [id number] Author: RACHELLE LEONARD APRN.CNP Service: Infectious Disease Author Type: Nurse Practitioner Type: Consult Progress Note Filed: 03/23/2023 17:10 Note Text: PROGRESS NOTE INFECTIOUS DISEASE BRIEF SUMMARY: 77-year-old female history of rheumatoid arthritis on Humira and methotrexate, history of prior disseminated histoplasmosis including colonic biopsy positive, 1 year of itraconazole and did well stopping around February 2019, COPD, on Coumadin for recurrent lower extremity DVT presented to [facility] 03/19/2023 for hemoptysis had gone into [facility] ED but then sent here due to pneumoperitoneum. Patient states she had increased cough since January. She improves a little more fatigue as well. She was getting every 6-month CT chest due to her prior disseminated histoplasmosis and continued need of immunosuppression. On the February CT head imaging consisting of innumerable micronodules throughout the lungs leading differential was disseminated histoplasmosis versus miliary TB or other disseminated fungal infection possibly viral bronchiolitis or pneumonitis. The pulmonary group she was following at time send off histoplasma studies, histo urine antigen 2.8. Has started her on itraconazole and had been on them for 2 to 3 days prior to admission. No fevers, chills, myalgias, shortness of breath, nausea, vomiting or diarrhea. ASSESSMENT: 1. Recurrent or possibly new infection pulmonary histoplasmosis 2. Amoxicillin admission, improved 3. COVID-positive -Positive at [facility], negative at [facility] 4. RA on Humira and methotrexate 5. History of histoplasmosis now positive testing again 6. Antibiotic monitoring, tolerating 7. Asymptomatic pneumatosis intestinalis 8. Penicillin allergy but is tolerated cephalosporins in the past Estimated Creatinine Clearance: 48.4 mL/min (based on SCr of 0.83 mg/dL). RECOMMENDATIONS: - Continue itraconazole 200 mg p.o. twice daily, is absorbed better with proton pump inhibitor - Continue ciprofloxacin + Flagyl through 03/26 - To follow-up with Dr. Hart in approximately 2 months - Remdesivir through today, dexamethasone can be discontinued once medically ready for discharge. - Patient remains stable from a Infectious Disease standpoint. We will sign off as we currently have no new recommendations at this time. Please call with any questions/concerns or if patient's condition worsens in any way. Subjective SUBJECTIVE: Interval Events: 03/23: Afebrile, WBC count 12.50. On room air ALT 53. AST 38. Creatinine clearance 48.4. Tells me she is feeling well today, no complaints of blood tinged sputum, no shortness of breath. Active Antimicrobials (From admission, onward) Start Stop 03/23/23 2100 itraconazole 200 mg oral liquid (SPORANOX) 200 mg, ORAL, 2 TIMES DAILY -- 03/22/23 183 ciprofloxacin HCl 500 mg tab(s) (CIPRO) 500 mg, ORAL, EVERY 12 HOURS 6AM/6PM -- 03/22/231829 metroNIDAZOLE 500 mg tab(s) (FLAGYL) 500 mg, ORAL, EVERY 8 HOURS -- Immunosuppressant: RN methotrexate and Humira Objective Medications: Current Facility-Administered Medications Medication Dose Route Frequency [...] (SPORANOX) 200 mg ORAL BID phenol 1 [place] (CHLORASEPTIC) 1 [place] MUCOUS MEMBRANE (TOPICAL MOUTH AND THROAT) q 2 H PRN enoxaparin 40 mg injection (LOVENOX) 40 mg SUBCUTANEOUS q 24 HR iv contrast (radiology procedure) INTRAVENOUS DIRECTED PRN ciprofloxacin HCl 500 mg tab(s) (CIPRO) 500 mg ORAL q 12 H 6a/6p metroNIDAZOLE 500 mg tab(s) (FLAGYL) 500 mg ORAL q 8 H OBJECTIVE: Physical Exam: BP 105/58 Pulse 84 Temp (Src) 97.5 (Oral) Resp 18 Ht 5' 3" (1.60m) Wt 121 lb (54.9kg) SpO2 97% BMI 21.44 kg/(m2). O2 Therapy: Room Air Lines, Drains, and Airways Line Duration Peripheral 03/22/23 0930 Right Forearm 22 Gauge 1 day Physical Exam: General appearance: Well appearing, alert, in no acute distress. Lungs: Lungs fairly clear. No wheezing, rhonchi, ral (more content not included)... Normal [facility] NURSING PROGon 03-23-2023 NURSING PROG HNO ID: [id number] Author: JOHANNA CAPPS, RN Service: ? Author Type: Registered Nurse Type: Nursing Progress Note Filed: 03/23/2023 18:59 Note Text: 1700: Pt refused Warfarin dose due to concerns for INR levels. [employer] notified; plan of care ongoing. [facility] PATHOLOGIST INTERPRETATION C BC/DIFFon 03-23-2023 Making Machine Catcher review Donte (Unsp spec) [Interp] Reviewed by Jamarcus Blue MD [facility] Comment on above: Order Comment: Speci men Type: BLOOD SPECIMEN Ordering Facility: [facility] Address: [address] [place] [address] Performed By: #### 1 4196-0, 86228-0 #### [facility] CLIA [id number] [address] [place] [address] [place] STAFF REVIEW, CBCDIF [facility] Comment on above: Order Comment: Speci men Type: BLOOD SPECIMEN Ordering Facility: [facility] Address: [address] [place] [address] Result Comment: Norm ocytic anemia with slight polychromasia and absolute neutrophilic leukocytosis with left shift. Performed By: #### 1 4196-0, 59164-8 #### [employer] [facility] CLIA [id number] [address] [place] PT panel Coag (PPP)on 2023 INR Coag (PPP) [Relative time] 2.1 {INR} High 0.9-1.3 [facility] Comment on above: Order Comment: Specbetina adkins Type: BLOOD SPECIMEN Ordering Facility: [facility] Address: [address] [place] [address] Result Comment: Halle min K Antagonist (VKA) Therapeutic Range: INR 2 to 3 (Target INR of 2.5) Note: For patients treated with VKA drugs, such as warfarin, the [employer] 2012 Guideline recommends a therapeutic INR range of 2 to 3 (target INR of 2.5). This recommendation includes high-risk patients with antiphospholipid syndrome with previous arterial or venous thromboembolism, current-generation mechanical or bioprosthetic aortic heart valve replacement. Note: Patients with mechanical aortic valve replacement and additional risk factors for thromboembolic events (atrial fibrillation, previous thromboembolism, LV dysfunction, hypercoagulable conditions) or an older generation mechanical AVR (i.e., ball in-Cage) or any mechanical MVR should have a INR therapeutic range of 2.5 to 3.5 (target INR of 3). Lia GH, et al. Chest 2012, 141:7S-47S Mitzi RA, et al. [facility] 2017, 70: 252-289 Performed By: #### 1 4196-0, 57245-2 #### [employer] [facility] CLIA [id number] [address] [place] PT Coag (PPP) [Time] 21.0 s High 9.7-13.0 [facility] Comment on above: Order Comment: Renay adkins Type: BLOOD SPECIMEN Ordering Facility: [facility] Address: [address] [place] [address] Performed By: #### 1 4196-0, 74500-9 #### [facility] CLIA [id number] [address] [facility] THERAPY NTon 03-23-2023 THERAPY NT HNO ID: [id number] Author: UMANG EASLEY, PT Service: Physical Therapy Author Type: Physical Therapist Type: Therapy (PT/OT/Speech/Resp) Filed: 03/23/2023 15:14 Note Text: Physical Therapy Evaluation Summary SERVICE DATE: 03/23/2023 SERVICE TIME: 1340 to 1355 ROOM: [place] [address] PT 6 Clicks Score: 22 DISCHARGE RECOMMENDATIONS Home ASSESSMENT Response to Therapy Interventions: Good Participation in Activities PRECAUTIONS CURRENT HOSPITAL COURSE presented with hemoptysis, found to be COVID positive at [facility]. Imaging showed intraperitoneal air and pneumatosis intestinalia, pulmonology c/s, started on remdesivir and decadron for covid Relevant Past Medical History: COPD, diverticulosis, RA, HTN HOME LIVING Patient Lives With: Self/Alone Assistance Available: PRN Entry To Home: Stairs Number Of Stairs Into Home: 3 Tub/Shower Type: tub Laundry: does her own laundry in basement PRIOR FUNCTIONAL LEVEL Within Functional Limits Per patient she is normally independent with self care and IADLS, still drives SUBJECTIVE Eager to mobilize THERAPY DIAGNOSIS No Skilled Need TREATMENT INTERVENTIONS Evaluation $ Evaluation-Low (15692) Billed Units: 1 unit Skilled Treatment Time (minutes): 15 TRAINING AND EDUCATION PROVIDED Benefits of In-Hospital Mobility, Role of Physical Therapy THERAPEUTIC SKILLS USED Movement Facilitation FUNCTIONAL STATUS Bed Mobility Transfers Sit To Stand: Stand By Assistance Stand To Sit: Stand By Assistance Bed to Chair Gait Contact Guard Assistance SpO2 97% after ambulation on RA. Denies shortness of breath. Encouraged patient to increase activity while in the hospital Gait Device: None Gait Distance (feet): 15 feet intervals Stairs GOALS PLAN PT Frequency: Discontinue Therapy Services Reasons Therapy Services Discontinued: No skilled needs SIGNATURE: Umang Easley PT PATIENT NAME: Haydee Bustamante DATE: March 23, 2023 TIME: 3:13 PM Normal [facility] THERAPY NT HNO ID: [id number] Author: LORI SHORT, OTR/L Service: Occupational Therapy Author Type: Occupational Therapist Type: Therapy (PT/OT/Speech/Resp) Filed: 03/23/2023 11:43 Note Text: Occupational Therapy Evaluation Summary SERVICE DATE: 03/23/2023 SERVICE TIME: 08 to 921 ROOM: [place] [address] OT 6 Clicks Score: 22 DISCHARGE RECOMMENDATIONS Home Recommended Discharge Disposition Comments: Pt states she has alot of friends who can assist as needed. Anticipated Discharge Needs: Physical Assist at Home Physical Assist at Home for: Transportation, Shopping ASSESSMENT Response to Therapy Interventions: Cognitive Deficits, Good Participation in Activities Pt seen bedside, agreeable to OT. Patient tolerated out of bed activity this session, completed functional mobility to the bathroom with supervision, completed bathroom transfers and sink level ADL. Discussed home safety with patient and she demo's good understanding. Recommend Home at d/c, patient states she has friends able to assist as needed. PRECAUTIONS CURRENT HOSPITAL COURSE presented with hemoptysis, found to be COVID positive at [facility]. Imaging showed intraperitoneal air and pneumatosis intestinalia, pulmonology c/s, started on remdesivir and decadron for covid Relevant Past Medical History: COPD, diverticulosis, RA, HTN HOME LIVING Patient Lives With: Self/Alone Assistance Available: PRN Tub/Shower Type: tub Laundry: does her own laundry in basement PRIOR FUNCTIONAL LEVEL Within Functional Limits Per patient she is normally independent with self care and IADLS, still drives Baseline Cognition: Oriented to self, Oriented to place, Oriented to time, Oriented to situation SUBJECTIVE pt seen bedside, agreeable to OT COGNITION Responsiveness: Alert Follows Commands: 3-step Commands, Cueing Needed Cueing to Follow Commands: Minimum Attention Deficits: Distractible, Divided Executive Function Deficits: Safety Awareness THERAPY DIAGNOSIS Decreased activities of daily living (ADL) TREATMENT INTERVENTIONS Evaluation, Self Longterm Management (56595) Timed Code Treatment (minutes): 8 Skilled Treatment Time (minutes): 23 $ Evaluation - Low (40396) Billed Units: 1 unit Self Longterm Management (70178) Treatment Minutes: 8 $ Self Longterm Management (60137) Billed Units: 1 unit TRAINING AND EDUCATION PROVIDED Cognitive Skills, Discharge Planning, Expected Functional Level, Functional Mobility Involving ADLs, Home Set-up/Modifications, Lower Extremity Dressing, Role of Occupational Therapy THERAPEUTIC SKILLS USED Activity Dosing, Cues for Sequencing/Proper Technique for Activity, Cuing Verbal FUNCTIONAL STATUS Activities of Daily Living Assist Level Additional Information Feeding Independent Grooming Supervision, Additional Information Provided patient with the opportunity to complete grooming tasks while standing at sink in the bathroom, provided supervision and cues for safety Bathing Upper Body Set Up Bathing Lower Body Contact Guard Assistance Dressing Upper Body Independent Dressing Lower Body Contact Guard Assistance Provided patient with cues for proper sequencing to complete LB dressing task Toileting Independent Mobility Assist Level Additional Information Bed Mobility Sit to Stand Supervision Stand to Sit Supervision Bed to Chair Toilet/Commode Supervision Shower Functional Mobility Supervision ROM R Upper Extremity ROM Comments: WFL L Upper Extremity ROM Comments: WFL STRENGTH Right Upper Extremity Strength Comments: 4/5 Left Upper Extremity Strength Comments: 4/5 ACTIVITY TOLERANCE Sitting Activity: LB ADLs Sitting Activity Tolerance (in minutes): 5 Standing Activity: functional mobility from chair to bathroom Standing Activity Tolerance (in minutes): 2 GOALS Lower Body Bathing with: Independent Lower Body Dressing with: Independent Toilet Transfer with: Independent Tolerate (minutes of functional activity): 20 Functional Activity with: Independent Increased Awareness of Cognitive Impairments as Related to ADL's/IADL's: Verbalized, Demonstrated Rehab Potential: Good PLAN OT Frequency: 1 Time Per Week Treatment Interventions: Self Care/Home Management, Cognitive Training Plan for Next Visit: Bathing Training, Cognition Intervention, Dressing Training SIGNATURE: CLYDE Burgess PATIENT NAME: Haydee Bustamante DATE: March 23, 2023 TIME: 11:40 AM Normal [facility] ALLIED HEALTHon 03-22-2023 ALLIED HEALTH HNO ID: [id number] Author: TIMUR HERNANDEZ RT(Ade) Service: Radiology Author Type: Dry Chain Worker Type: Allied Health Filed: 03/22/2023 09:43 Note Text: Radiology Service Progress Note DATE OF SERVICE: March 22, 2023 TIME: 9:43 AM PATIENT IDENTITY VERIFICATION COMPLETED USING TWO (2) STANDARD IDENTIFIERS: Name and Date of confirmed by patient verbally and Name and Date of confirmed by identification band. FALL SCREENING: Has the patient had 2 falls in the last year or 1 fall with injury or currently using an Ambulatory Assistive Device (Walker, Cane, Wheelchair, Crutches, etc.)? Inpatient: Screened on floor PATIENT GENDER DATA: Female. status: : No status: NO. PATIENT RELEVANT IMPLANT DATA REVIEWED: Not Applicable PATIENT PRESENTS WITH AN IMPLANTABLE OR ATTACHED DATA SCIENTIST: No ALLERGIES: Reviewed and unchanged CONTRAST ALLERGY: NO. EXAM: CT -CONTRAST INDUCED NEPHROPATHY RISK FACTORS: Patient age > 60 years CREATININE: Creatinine Date Value Ref Range Status 03/22/2023 0.83 0.58 - 0.96 mg/dL Final 03/21/2023 0.93 0.58 - 0.96 mg/dL Final 03/20/2023 0.86 0.58 - 0.96 mg/dL Final Estimated Glomerular Filtration Rate Date Value Ref Range Status 03/22/2023 74 >=60 mL/min/1.73m? Final Comment: Estimated Glomerular Filtration Rate (eGFR) is calculated using the 2020 CKD-EPI creatinine equation. This equation utilizes serum creatinine, sex, and age as parameters. The creatinine assay has traceable calibration to isotope dilution-mass spectrometry. Refer to KDIGO guidelines for clinical interpretation. In patients with unstable renal function, e.g. those with acute kidney injury, the eGFR may not accurately reflect actual GFR. eGFR- Date Value Ref Range Status 07/07/2020 >60 Final P.O.C.T. RESULTS: N/A March 22, 2023 TREATMENT: N/A PERIPHERAL IV DATA: Inpatient - refer to LDA documentation RADIOLOGY DEPARTMENT: CT; Exam(s) Completed: Abdomen/Pelvis SIGNATURE: RT Toney(R) PATIENT NAME: Haydee Bustamante DATE: March 22, 2023 TIME: 9:43 AM Normal [facility] CBC panel Auto (Bld)on 03-22 Erythrocyte distribution width (RBC) [Ratio] 16.0 % High 11.5-15.0 [facility] Comment on above: Order Comment: Renay adkins Type: BLOOD SPECIMEN Ordering Facility: [facility] Address: [address] [place] [address] Performed By: #### 1 4196-0, 09691-2 #### [facility] CLIA [id number] [address] [place] [address] [place] Hematocrit (Bld) [Volume fraction] 23.1 % Low 36.0-46.0 [facility] Comment on above: Order Comment: Renay adkins Type: BLOOD SPECIMEN Ordering Facility: [facility] Address: [address] [place] [address] Performed By: #### 1 4196-0, 85975-4 #### [facility] CLIA [id number] [address] [facility] Hemoglobin (Bld) [Mass/Vol] 8.1 g/dL Low 11.5-15.5 [facility] Comment on above: Order Comment: Speci men Type: BLOOD SPECIMEN Ordering Facility: [facility] Address: [address] [place] [address] Performed By: #### 1 4196-0, 12014-7 #### [facility] CLIA [id number] [address] [place] [address] MCH (RBC) [Entitic mass] 27.4 pg Normal 26.0-34.0 [facility] Comment on above: Order Comment: Speci men Type: BLOOD SPECIMEN Ordering Facility: [facility] Address: [address] [place] [address] Performed By: #### 1 4196-0, 44317-4 #### [facility] CLIA [id number] [address] [place] [address] MCHC (RBC) [Mass/Vol] 35.1 g/dL Normal 30.5-36.0 [facility] Comment on above: Order Comment: Speci men Type: BLOOD SPECIMEN Ordering Facility: [facility] Address: [address] [place] [address] Performed By: #### 1 4196-0, 83485-4 #### [facility] CLIA [id number] [address] [place] [address] MCV (RBC) [Entitic vol] 78.0 fL Low 80.0-100.0 [facility] Comment on above: Order Comment: Speci men Type: BLOOD SPECIMEN Ordering Facility: [facility] Address: [address] [place] [address] Performed By: #### 1 4196-0, 28467-3 #### [facility] CLIA [id number] [address] [place] [address] [place] Nucleated RBC (Bld) [#/Vol] 10*3/uL Normal <0.01 [facility] Comment on above: Order Comment: Speci men Type: BLOOD SPECIMEN Ordering Facility: [facility] Address: [address] [place] [address] Performed By: #### 1 4196-0, 74552-7 #### [facility] CLIA [id number] [address] [place] [address] [place] Platelet mean volume (Bld) [Entitic vol] 10.3 fL Normal 9.0-12.7 [facility] Comment on above: Order Comment: Speci men Type: BLOOD SPECIMEN Ordering Facility: [facility] Address: [address] [place] [address] Performed By: #### 1 4196-0, 69035-3 #### [facility] CLIA [id number] [address] [place] Platelets (Bld) [#/Vol] 148 10*3/uL Low 150-400 [facility] Comment on above: Order Comment: Speci men Type: BLOOD SPECIMEN Ordering Facility: [facility] Address: [address] [place] [address] Performed By: #### 1 4196-0, 97918-6 #### [facility] CLIA [id number] [address] [place] RBC (Bld) [#/Vol] 2.96 10*6/uL Low 3.90-5.20 [facility] Comment on above: Order Comment: Speci men Type: BLOOD SPECIMEN Ordering Facility: [facility] Address: [address] [place] [address] Performed By: #### 1 4196-0, 40575-4 #### [facility] CLIA [id number] [address] [place] WBC (Bld) [#/Vol] 10.53 10*3/uL Normal 3.70-11.00 [facility] Comment on above: Order Comment: Speci men Type: BLOOD SPECIMEN Ordering Facility: [facility] Address: [address], [place] [id number] Performed By: #### 1 4196-0, 64189-0 #### [facility] CLIA [id number] [address] [place] [address] [place] CONSULT PROGon 03-22-2023 CONSULT PROG HNO ID: [id number] Author: MAGAN VILLAFUERTE DO Service: Pulmonary Disease Author Type: Physician Type: Consult Progress Note Filed: 03/22/2023 15:58 Note Text: PROGRESS NOTE SERVICE DATE: 03/20/2023 SERVICE TIME: 8:15 AM Admission Date: 03/19/2023 HPI: This is a 77 year old female former 10 pack year smoker with PMH significant for -RA (Humira, off Methotrexate for at least a month secondary to increased liver enzymes), -GERD, -HTN, -h/o disseminated Histoplasmosis in 6045-0042 managed on itraconazole, ne H an M Ab positive for which she was started on itraconazole 200 mg TID started on 03/14 with flonase -bronchiectasis-mucinex, acapella. 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 Patient reports she had a cough attack and noticed some blood tinged sputum prompting her to call her PCP office who then directed her to go to the ED. CT PE was obtained and showed no evidence of pulmonary embolism or pneumonia and a CT abdomen pelvis was obtained and was found to have evidence of small free air inside the abdomen. INR on arrival to [place] was 9. She given Vitamin K and transferred here. COVID testing in [place] was positive Patient complains of chronic sore throat and cough since , seen by pulm clinic who repeated CT Chest for new findings and also for pulm nodule f/u which showed: evolving infectious/inflammatory process such as ROQUE infection with mild bronchiectasis most pronounced in the right middle lobe and lingula and with scattered centrilobular tree-in-bud type subcentimeter nodules. While certain areas appear slightly improved, certain areas have progressed in the interval, as described. Stable in size 1.2 cm left lower lobe irregular nodule with faint calcifications suggesting calcified granuloma. CT chest in July 2022 demonstrated stable left lower lobe nodule with a new cluster of nodules in right lower lobe. Patient instructed to consistently use mucus clearing techniques with bronchopulmonary hygiene. Follw up CT chest 02/21/2023 demonstrates interval development of innumerable micronodules throughout the lungs in an almost miliary distribution, most prominently in upper lobes. Patient denies any abdominal pain, nausea, vomiting, fevers, or chills. Last colonoscopy in 2019 with no abnormalities noted. Environmental and occupational exposure: [place] 1996[place] Rarely uses a wood burner to supplement heat. Basement is historically dry, damp floor recently following rains. Hot water heat. No Central A/C. Bedroom juan antonio is wall to wall carpet, hardwood elsewhere. 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 No sustained Rx with Amiodarone, Nitrofurantoin, cancer chemotherapy. Smoking h/o: [id number]-[id number] former smoker, quit in 1989. Late was a heavy smoker Subjective Na 128 PC going down INR >8 Histoplasma positive Histoplasma H and M band present Objective PAST MEDICAL HISTORY Diagnosis Date Anemia Bone [...] positive rheumatoid factor (HCC) 03/07/2015 Dr. Hurley ([facility]) Unspecified hemorrhoids without mention of complication [...] SPINE FUSN,POST INTERBODY 2012 Dr. Armando at [facility]. Diskectomy and laminectomy PAST SURGICAL HISTORY OF 03/07/1999 removal facial lesion PAST SURGICAL HISTORY OF 08/17/2014 excision soft tissue mass left index finger TONSILLECTOMY PRIMARY/SECONDARY TRANSCATH RETRIEVAL,PERCUT 12/28/2006 medication ALL (more content not included)... Normal [facility] CT ABD/PEL W IVCONon 024 CT ABD/PEL W IVCON * * *Final Report* * * * * * SEE BOTTOM OF REPORT FOR ADDENDED TEXT * * * DATE OF EXAM: Mar 22 2023 9:46AM [facility] 0530 - CT ABD/PEL W IVCON / PROCEDURE REASON: Abdominal abscess/infection suspected * * * * Physician Interpretation * * * * * * * * * * * * ORIGINAL REPORT * * * * * * * * EXAMINATION: CT ABDOMEN AND PELVIS WITH IV CONTRAST CLINICAL HISTORY: Follow-up pneumatosis. TECHNIQUE: CT of the abdomen and pelvis was performed using standard technique, scanning from just above the dome of the diaphragm to the symphysis pubis. MQ: CTAP_3 Contrast: IV: 100 ml of Omnipaque 350 Oral: 20 ml of Omni 240 10-25ml diluted with water CT Radiation dose: Integrated Dose-length product (DLP) for this visit = 330 mGy*cm. CT Dose Reduction Employed: mAs-kVp adjusted based on patient size-age COMPARISON: Outside CT scan dated 03/19/2023 RESULT: Liver: Mild fatty infiltration in the liver. No focal abnormality. Biliary: No bile duct dilation. Contracted gallbladder with small amount of nonspecific fluid around it. Spleen: No mass. Mild splenomegaly measuring up to nearly 14 cm. Pancreas: 8mm hypodensity mid body of the pancreas on 3:50. Otherwise unremarkable. Adrenals: No mass. Kidneys: No acute findings. 10 mm cyst lower pole left kidney. GI tract: Pneumatosis again seen within the wall of the ascending colon and extending over into the proximal to mid transverse colon. The amount of pneumatosis has decreased since prior exam particularly in the ascending colon. Some of the air does dissects out into the mesocolon and this also is improving. Colonic wall is not thickened. Lymph nodes: Subcentimeter lymph nodes noted in the peripancreatic and periportal region. Mesentery/Peritoneum: No convincing free intraperitoneal air. No ascites. Retroperitoneum: No mass. Vasculature: Abdominal aorta is not aneurysmally dilated. Celiac artery, SMA, renal arteries, and MARK are patent. Portal vein, hepatic veins, splenic vein, and SMV are patent. Inferior vena cava filter. Pelvis: No mass or focal fluid collection. Bones/Soft Tissues: Small amount of air within the anterior abdominal wall soft tissues. No acute bony abnormality. Advanced degenerative changes at L3-4 and L4-5. Lower thorax: Trace left-sided pleural effusion. Nodular density at the left lung base measuring 11 mm on 3:17. Stable dating back to 04/04/2018. Barn Manager (topogram) images: No significant additional findings. IMPRESSION: 1. Again noted is pneumatosis within the wall of the ascending and proximal to mid transverse colon. Improving since most recent prior CT scan of 03/19/2023. 2. Air is seen tracking into the mesocolon and this is improving as well. 3. Cause for pneumatosis is not readily apparent. No obvious vascular occlusion is evident. 4. Mild splenomegaly. 5. Fatty infiltration in the liver. * * * * * * * * ADDENDUM #1 * * * * * * * * Addendum: Please add in the impression: Hypodensity noted in the body of the pancreas may represent cystic neoplasm such is intraductal papillary mucinous neoplasm. Recommend further characterization with MRI to establish baseline. MRI can then be utilized for yearly follow-up. ACTIONABLE RESULT: FOLLOW-UP Acuity: Actionable Findings: Pancreas/Biliary Routing Code: PB_1 Recommendation: MRI PANCREAS/BILIARY WO/W IV CONTRAST Time Frame: Additional evaluation as described in the impression COMMUNICATION: Results will be communicated with the ordering provider via [employer] staff message or phone message by [facility] within 2 business days of report finalization. ========= Algorithms for management of incidental imaging findings can be found on the [facility] Intranet Sharepoint site at: http://spo.[facility].org/document [email or web address] %20Incidental%20Findi ngs%20at%20Imaging/Forms/Al lItems.aspx Jack Machine Operator: KRYSTAL Transcribe Date/Time: Mar 22 2023 10:59A Dictated by : MIRIAN CHENEY MD This examination was interpreted and the report reviewed and electronically signed by: MIRIAN CHENEY MD on Mar 22 2023 10:43AM EST This document has been addended by: MIRIAN CHENEY MD on Mar 22 2023 11:00AM EST [id number] Normal [facility] Comp Metab 2000 Pnl SerPlon 03-22-2023 Bilirubin [Mass/Vol] 0.8 mg/dL Normal 0.2-1.3 [facility] Comment on above: Order Comment: Speci men Type: BLOOD SPECIMENOrdering Facility: [facility] Address: [address] [place] [address] Performed By: #### 2 4325-3, 36172-6 ####[facility] [id number] [place] [address] [place] Comprehensive metabolic 2000 panelon 03-22-2023 Albumin [Mass/Vol] 2.7 g/dL Low 3.9-4.9 [facility] Comment on above: Order Comment: Speci men Type: BLOOD SPECIMENOrdering Facility: [facility] Address: [address] [place] [address] Performed By: #### 2 4325-3, 81019-3 ####[facility] [id number] [address] [place] [facility] ALP [Catalytic activity/Vol] 201 U/L High 34-123 [facility] Comment on above: Order Comment: Speci men Type: BLOOD SPECIMENOrdering Facility: [facility] Address: [address] [place] [address] Performed By: #### 2 4325-3, 06834-7 ####[facility] [id number] [place] [address] [place] ALT With P-5'-P [Catalytic activity/Vol] 54 U/L High 7-38 [facility] Comment on above: Order Comment: Speci men Type: BLOOD SPECIMENOrdering Facility: [facility] Address: [address] [place] [address] Performed By: #### 2 4325-3, 67762-0 ####[facility] [id number] [place] [address] [place] Anion gap [Moles/Vol] 8 mmol/L Low 9-18 [facility] Comment on above: Order Comment: Speci men Type: BLOOD SPECIMENOrdering Facility: [facility] Address: [address] [place] [address] Performed By: #### 2 4325-3, 06892-4 ####[facility] [id number] [place] [address] [place] AST With P-5'-P [Catalytic activity/Vol] 33 U/L Normal 13-35 [facility] Comment on above: Order Comment: Speci men Type: BLOOD SPECIMENOrdering Facility: [facility] Address: [address] [place] [address] Performed By: #### 2 4325-3, 77147-4 ####[facility] [id number] [place] [address] [place] Calcium [Mass/Vol] 8.8 mg/dL Normal 8.5-10.2 [facility] Comment on above: Order Comment: Speci men Type: BLOOD SPECIMENOrdering Facility: [facility] Address: [address] [place] [address] Performed By: #### 2 4325-3, 75463-4 ####[facility] [id number] [place] [address] [place] Chloride [Moles/Vol] 100 mmol/L Normal 97-105 [facility] Comment on above: Order Comment: Speci men Type: BLOOD SPECIMENOrdering Facility: [facility] Address: [address] [place] [address] Performed By: #### 2 4325-3, 80458-2 ####[facility] [id number] [place] [id number] [place] CO2 [Moles/Vol] 26 mmol/L Normal 22-30 [facility] Comment on above: Order Comment: Speci men Type: BLOOD SPECIMENOrdering Facility: [facility] Address: [address] [place] [address] Performed By: #### 2 4325-3, 48688-7 ####[facility] [id number] [address] [facility] Creatinine [Mass/Vol] 0.83 mg/dL Normal 0.58-0.96 [facility] Comment on above: Order Comment: Speci men Type: BLOOD SPECIMENOrdering Facility: [facility] Address: [address] [place] [address] Performed By: #### 2 4325-3, 37121-8 ####[facility] [id number] [address] Creatinine and Glomerular filtration rate.predicted panel (S/P/Bld) 74 mL/min/1.73m??? Normal >=60 [facility] Comment on above: Order Comment: Speci men Type: BLOOD SPECIMENOrdering Facility: [facility] Address: [address] [place] [address] Result Comment: Meaghan mated Glomerular Filtration Rate (eGFR) is calculated using the 2020 CKD-EPI creatinine equation. This equation utilizes serum creatinine, sex, and age as parameters. The creatinine assay has traceable calibration to isotope dilution-mass spectrometry. Refer to KDIGO guidelines for clinical interpretation. In patients with unstable renal function, e.g. those with acute kidney injury, the eGFR may not accurately reflect actual GFR. Performed By: #### 2 4325-3, 66998-8 ####[facility]ATORYCLIA [id number] [place] [id number] [place] Glucose [Mass/Vol] 158 mg/dL High 74-99 [facility] Comment on above: Order Comment: Renay adkins Type: BLOOD SPECIMENOrdering Facility: [facility] Address: [address] [place] [address] Result Comment: The [place] Diabetes [employer] (ADA) provides guidance for cutoff values for fasting glucose and random glucose. The ADA defines fasting as no caloric intake for at least 8 hours. Fasting plasma glucose results between 100 to 125 mg/dL indicate increased risk for diabetes (prediabetes). Fasting plasma glucose results greater than or equal to 126 mg/dL meet the criteria for diagnosis of diabetes. In the absence of unequivocal hyperglycemia, results should be confirmed by repeat testing. In a patient with classic symptoms of hyperglycemia or hyperglycemic crisis, random plasma glucose results greater than or equal to 200 mg/dL meet the criteria for diagnosis of diabetes. Reference: Standards of Medical Care in Diabetes 2016, [place] [employer]. Diabetes Care. 2016.39(Suppl 1). Performed By: #### 2 4325-3, 54758-6 ####[facility]ATORYCLIA [id number] [place] [address] [place] Potassium [Moles/Vol] 4.0 mmol/L Normal 3.7-5.1 [facility] Comment on above: Order Comment: Renay adkins Type: BLOOD SPECIMENOrdering Facility: [facility] Address: [address] [place] [address] Performed By: #### 2 4325-3, 91016-3 ####[facility] LAB[facility]ATORYCLIA [id number] [place] [address] [place] Protein [Mass/Vol] 4.9 g/dL Low 6.3-8.0 [facility] Comment on above: Order Comment: Renay adkins Type: BLOOD SPECIMENOrdering Facility: [facility] Address: [address] [place] [address] Performed By: #### 2 4325-3, 89496-3 ####[facility] LABORATORYCLIA [id number] [place] [address] [place] Sodium [Moles/Vol] 134 mmol/L Low 136-144 [facility] Comment on above: Order Comment: Speci men Type: BLOOD SPECIMENOrdering Facility: [facility] Address: [address] [id number] Performed By: #### 2 4325-3, 49227-3 ####[facility] LABORATORYCLIA [id number] [place] [address] [place] [facility] Urea nitrogen [Mass/Vol] 24 mg/dL High 7-21 [facility] Comment on above: Order Comment: Speci men Type: BLOOD SPECIMENOrdering Facility: [facility] Address: [address] [id number] Performed By: #### 2 4325-3, 13875-7 ####[facility] LABORATORYCLIA [id number] [place] [address] [facility] ECHOon 03-22-2023 Echocardiography Echocardiography Rep ort: Transthoracic Echo [facility] Date of service: 03/22/2023 12:34[facility] Ordering physician: AMERICA MAYER Indication: Re-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 heart disease with change in clinical status Technologist: Jmaarcus Fraser RUST Interpreting physician: Jb Richardson MD PATIENT: Name: MS. HAYDEE BUSTAMANTE : 1945 Age: 77 years Gender: F History of hypertension and valvular heart disease. Primary rhythm: sinus. Height: 160.00 cm BSA: 1.56 m Weight: 54.88 kg BMI: 21.4 kg/m Heart rate 88 bpm Blood pressure 106/56 mmHg Color Doppler was utilized to interrogate the cardiac valves assessed and spectral Doppler was utilized to determine the flow velocities and pressure gradients reported in this exam. MEASUREMENTS: Value Indexed Normal Max aortic dimension 3.1 cm Ao < 3.8 Left atrial volume 100 ml (biplane A-L) 64 ml/m Sendy <= 34 LV ID (diastole) 3.5 cm (2D) 2.22 cm/m LV ID (systole) 2.2 cm (2D) 1.38 cm/m IVS, leaflet tips 1.2 cm (2D) Posterior wall thickness 1.2 cm (2D) Left ventricular mass 128 g (2D) 82 g/m LV stroke volume 45 ml (2D biplane) LVOT stroke volume 83 ml 53 ml/m LV end diastolic volume 59 ml (2D biplane) 38.1 ml/m 29<=EDVi<62 LV end systolic volume 15 ml (2D biplane) 9.4 ml/m Ejection Fraction 75 % (2D biplane) EF > 54 FINDINGS: LEFT VENTRICLE The left ventricle is normal in size. There is mild concentric left ventricular hypertrophy. Left ventricular systolic function is hyperdynamic globally. Left ventricular diastolic function was not evaluated due to mitral stenosis. Mitral annular lateral E/e': 25.3. Mitral annular septal E/e': 29.5. Diastolic Function: Respiratory Variation Expiration Inspiration % Difference MV Peak E 177.0 cm/s 140.0 cm/s 20.9 % TV Peak E 35.0 cm/s 48.0 cm/s -37.1 % Wall Motion: All scored segments are normal. RIGHT VENTRICLE The right ventricle is normal in size. Right ventricular systolic function is normal. RV systolic tissue Doppler velocity is 16.0 cm/s. Tricuspid annular displacement is 2.7 cm. Estimated right ventricular systolic pressure is likely underestimated due to a weak or incomplete tricuspid regurgitation signal and is, at least, 37 mmHg consistent with mild pulmonary hypertension. Estimated right atrial pressure is 3 mmHg based on IVC assessment. LEFT ATRIUM The left atrial cavity is severely dilated. RIGHT ATRIUM The right atrial cavity is mildly dilated. Inferior Vena Cava: The inferior vena cava appears normal measuring 1.8 cm. The vessel decreases greater than 50 percent with inspiration. MITRAL VALVE There is moderate mitral annular calcification observed anterior and posterior. There is moderate mitral stenosis caused by calcification - annular. There is trace mitral valve regurgitation. There is mild thickening. There is mild calcification. The peak mitral valve gradient is 31 mmHg. The mean mitral valve gradient is 14 mmHg. The pressure half time is 80 msec. The peak mitral E/A ratio is 0.85. The average mitral E/e' ratio is 27.4. MV area is 2.73 cm (1.75 cm /m ) by P1/2. TRICUSPID VALVE The tricuspid valve leaflets are structurally normal. There is mild (1+ - 2+) tricuspid valve regurgitation. There is no thickening. AORTIC VALVE There is moderately severe aortic valve stenosis caused by calcified valve. There is no aortic valve regurgitation. Tricuspid aortic valve. There is moderate thickening. There is moderate calcification. The peak gradient is 73 mmHg (peak velocity = 428.4 cm/s). The mean gradient is 46 mmHg. The LVOT mean velocity is 94.7 cm/s. The LVOT diameter is 1.9 cm. The aortic VTI is 89.5 cm. The mean velocity in the aortic valve is 329.0 cm/s. The dimensionless valve index is 0.32. AV area is 0.92 cm (0.59 cm /m ) by continuity, VTI. The LVOT stroke volume index is 53 ml/m . PULMONIC VALVE The pulmonic valve cusps are structurally normal. There is no pulmonic valve regurgitation. There is no thickening. AORTA The visualized aorta is normal in size. Measurements - Sinus: 2.8 cm. Sinotubular junction 2.6 cm. Mid ascending aorta 3.0 cm. Distal ascending aorta 3.1 cm. Distal descending diaphragmatic level 1.8 cm. PULMONARY ARTERIES The pulmonary arteries are unseen or not interrogated. INTERATRIAL SEPTUM There is no evidence of intracardiac shunting as detected by Doppler. PERICARDIUM There is a moderate pericardial effusion adjacent to the right atrium measuring 1.1 cm. There is an epicardial fat pad. CONCLUSIONS: - Exam indication: Re-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 heart disease with change in clinical status - The left ventricle is normal in size. There is mild concentric left ventricular hypertrophy. Left ventricular systolic function is hyperdynamic. EF = 75 5% (2D biplane) Left ventricular diastolic function was not evaluated due to mitral (more content not included)... Normal [facility] Haptoglob SerPl-mCncon 03-22 Haptoglobin [Mass/Vol] 95 mg/dL Normal 31-238 [facility] Comment on above: Order Comment: Renay adkins Type: BLOOD SPECIMEN [facility] Address: [address] [place] [address] Performed By: #### 1 4196-0, 66846-7 #### [facility] CLIA [id number] 1 [place] [address] [place] Hepatic function 2000 panelo n 03-22-2023 Albumin [Mass/Vol] 2.6 g/dL Low 3.9-4.9 [facility] Comment on above: Order Comment: Speci men Type: BLOOD SPECIMENOrdering Facility: [facility] Address: [address] [place] [address] Performed By: #### 2 4325-3, 63674-1 ####[facility]ATORYCLIA [id number] [address] [place] ALP [Catalytic activity/Vol] 200 U/L High 34-123 [facility] Comment on above: Order Comment: Speci men Type: BLOOD SPECIMENOrdering Facility: [facility] Address: [address] [place] [address] Performed By: #### 2 4325-3, 30059-0 ####[facility] LABORATORYCLIA [id number] [place] [address] [place] ALT With P-5'-P [Catalytic activity/Vol] 53 U/L High 7-38 [facility] Comment on above: Order Comment: Speci men Type: BLOOD SPECIMENOrdering Facility: [facility] Address: [address] [place] [address] Performed By: #### 2 4325-3, 06456-3 ####[facility]ATORYCLIA [id number] [address] [place] AST With P-5'-P [Catalytic activity/Vol] 38 U/L High 13-35 [facility] Comment on above: Order Comment: Speci men Type: BLOOD SPECIMENOrdering Facility: [facility] Address: [address] [place] [address] Performed By: #### 2 4324-3, 32501-3 ####[facility]ORATORYCLIA [id number] [address] [place] Bilirubin.conjugated [Mass/Vol] 0.3 mg/dL High <0.2 [facility] Comment on above: Order Comment: Speci men Type: BLOOD SPECIMENOrdering Facility: [facility] Address: [address] [place] [address] Performed By: #### 2 4325-3, 05148-4 ####[facility]ORATORYCLIA [id number] [place] [address] [place] Protein [Mass/Vol] 5.1 g/dL Low 6.3-8.0 [facility] Comment on above: Order Comment: Speci men Type: BLOOD SPECIMENOrdering Facility: [facility] Address: [address] [place] [address] Performed By: #### 2 4325-3, 18053-9 ####[facility]ORATORYCLIA [id number] [place] [address] [place] LDH SerPl-cCncon 03-22-2023 LDH [Catalytic activity/Vol] 300 U/L High 135-214 [facility] Comment on above: Order Comment: Speci men Type: BLOOD SPECIMEN [facility] Address: [address] [place] [address] Performed By: #### 1 4196-0, 92123-2 #### [facility] CLIA [id number] [address] [place] [address] [place] Lactate (Bld) [Moles/Vol]on 03-22-2023 Lactate [Moles/Vol] 1.7 mmol/L Normal 0.5-2.2 [facility] Comment on above: Order Comment: Speci men Type: BLOOD SPECIMEN [facility] Address: [address] [place] [address] Performed By: #### 1 4196-0, 18220-2 #### [facility] CLIA [id number] [address] [place] [address] [place] NURSING PROGon 03-22-2023 NURSING PROG HNO ID: [id number] Author: OJ PEÑA, PAULA Service: Nursing Author Type: Registered Nurse Type: Nursing Progress Note Filed: 03/22/2023 09:58 Note Text: Pt to remain in isolation d/t positive covid test at [place] and pt being immunocompromised. Orders received from Dr Geno Hart. Normal [facility] PT panel Coag (PPP)on 2023 INR Coag (PPP) [Relative time] 2.5 {INR} High 0.9-1.3 [facility] Comment on above: Order Comment: Renay adkins Type: BLOOD SPECIMENOrdering Facility: [facility] Address: [address] [place] [address] Result Comment: Halle min K Antagonist (VKA) Therapeutic Range: INR 2 to 3 (Target INR of 2.5) Note: For patients treated with VKA drugs, such as warfarin, the [place] [employer] 2012 Guideline recommends a therapeutic INR range of 2 to 3 (target INR of 2.5). This recommendation includes high-risk patients with antiphospholipid syndrome with previous arterial or venous thromboembolism, current-generation mechanical or bioprosthetic aortic heart valve replacement. Note: Patients with mechanical aortic valve replacement and additional risk factors for thromboembolic events (atrial fibrillation, previous thromboembolism, LV dysfunction, hypercoagulable conditions) or an older generation mechanical AVR (i.e., ball in-Cage) or any mechanical MVR should have a INR therapeutic range of 2.5 to 3.5 (target INR of 3). Lia GH, et al. Chest 2012, 141:7S-47S Mitzi RA, et al. [facility] 2017, 70: 252-289 Performed By: #### 3 4528-0 ####[facility]ORATORYCLIA [id number] [place] [address] [place] PT Coag (PPP) [Time] 24.6 s High 9.7-13.0 [facility] Comment on above: Order Comment: Renay adkins Type: BLOOD SPECIMENOrdering Facility: [facility] Address: [address] [place] [address] Performed By: #### 3 4528-0 ####[facility]ATORYCLIA [id number] [address] [place] Retics #on 03-22-2023 Reticulocytes (Bld) [#/Vol] 0.40225 10*3/uL Normal 0.018-0.10 0 [facility] Comment on above: Order Comment: Renay adkins Type: BLOOD SPECIMEN [facility] Address: [address] [place] [address] Performed By: #### 1 4196-0, 24197-2 #### [facility] CLIA [id number] [address] Reticulocytes (Bld) [#/Vol]o n 03-22-2023 Reticulocytes/100 RBC (Bld) 2.9 % High 0.4-2.0 [facility] Comment on above: Order Comment: Speci men Type: BLOOD SPECIMEN [facility] Address: [address] [place] [address] Performed By: #### 1 4196-0, 16786-3 #### [facility] CLIA [id number] [address] CBC panel Auto (Bld)on 03-21 Erythrocyte distribution width (RBC) [Ratio] 16.2 % High 11.5-15.0 [facility] Comment on above: Order Comment: Speci men Type: BLOOD SPECIMEN [facility] Address: [address] [place] [address] Performed By: #### 1 4196-0, 93982-8 #### [facility] CLIA [id number] [address] Hematocrit (Bld) [Volume fraction] 25.9 % Low 36.0-46.0 [facility] Comment on above: Order Comment: Speci men Type: BLOOD SPECIMEN [facility] Address: [address] [place] [address] Performed By: #### 1 4196-0, 55936-4 #### [facility] CLIA [id number] [address] [place] Hemoglobin (Bld) [Mass/Vol] 8.6 g/dL Low 11.5-15.5 [facility] Comment on above: Order Comment: Speci men Type: BLOOD SPECIMEN [facility] Address: [address] [place] [address] Performed By: #### 1 4196-0, 00452-2 #### [facility] CLIA [id number] [address] MCH (RBC) [Entitic mass] 26.8 pg Normal 26.0-34.0 [facility] Comment on above: Order Comment: Speci men Type: BLOOD SPECIMEN [facility] Address: [address] [place] [address] Performed By: #### 1 4196-0, 73823-5 #### [facility] CLIA [id number] [address] MCHC (RBC) [Mass/Vol] 33.2 g/dL Normal 30.5-36.0 [facility] Comment on above: Order Comment: Speci men Type: BLOOD SPECIMEN [facility] Address: [address] [place] [address] Performed By: #### 1 4196-0, 60227-7 #### [facility] CLIA [id number] [address] [place] [address] MCV (RBC) [Entitic vol] 80.7 fL Normal 80.0-100.0 [facility] Comment on above: Order Comment: Speci men Type: BLOOD SPECIMEN [facility] Address: [address] [place] [address] Performed By: #### 1 4196-0, 37798-3 #### [facility] CLIA [id number] [address] [place] [address] Nucleated RBC (Bld) [#/Vol] 10*3/uL Normal <0.01 [facility] Comment on above: Order Comment: Speci men Type: BLOOD SPECIMEN [facility] Address: [address] [place] [address] Performed By: #### 1 4196-0, 22267-2 #### [facility] CLIA [id number] [address] Platelet mean volume (Bld) [Entitic vol] 10.6 fL Normal 9.0-12.7 [facility] Comment on above: Order Comment: Speci men Type: BLOOD SPECIMEN [facility] Address: [address] [place] [address] Performed By: #### 1 4196-0, 72397-8 #### [facility] CLIA [id number] [address] Platelets (Bld) [#/Vol] 148 10*3/uL Low 150-400 [facility] Comment on above: Order Comment: Speci men Type: BLOOD SPECIMEN [facility] Address: [address] [place] [address] Performed By: #### 1 4196-0, 91671-9 #### [facility] CLIA [id number] [address] RBC (Bld) [#/Vol] 3.21 10*6/uL Low 3.90-5.20 [facility] Comment on above: Order Comment: Speci men Type: BLOOD SPECIMEN [facility] Address: [address] [place] [address] Performed By: #### 1 4196-0, 04022-0 #### [facility] CLIA [id number] [address] WBC (Bld) [#/Vol] 6.94 10*3/uL Normal 3.70-11.00 [facility] Comment on above: Order Comment: Speci men Type: BLOOD SPECIMEN [facility] Address: [address] [place] [address] Performed By: #### 1 4196-0, 77134-0 #### [facility] CLIA [id number] [address] CONSULTon 03-21-2023 CONSULT HNO ID: [id number] Author: SHERIN SHEA DO Service: Hospital Medicine Author Type: Physician Type: Consults Filed: 03/21/2023 17:37 Note Text: DEPARTMENT OF HOSPITAL MEDICINE INITIAL CONSULT SERVICE DATE: 03/21/2023 SERVICE TIME: 10:03 AM Primary Care Physician: Claudine Durán MD NIGHT AND WEEKEND COVERAGE: [place] COVERAGE: After 7pm, please call cross cover pager #[phone] REASON FOR CONSULT: possibly assume care REQUESTING PHYSICIAN: Alan Subjective CHIEF COMPLAINT: hemoptysis HPI: This is a 77 year old female with PMH RA on humira, HTN, disseminated histo, 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 Reportedly found to be COVID+ in [place] and intraperitoneal air and pneumatosis intestinalis noted on imaging, transferred here. Seen by pulm and started on remdesvir and decadron for covid. Also on itraconazole, cipro and flagyl. Checking for TB. Patient is not having any abd pain and per surgery, there are no surgical plans. Patient is feeling pretty decently, not much sob or cough. Just feels tired and wants to get out of the ED. Was able to have a BM. PAST MEDICAL HISTORY Diagnosis Date Anemia Bone [...] positive rheumatoid factor (HCC) 03/07/2015 Dr. Hurley ([facility]) Unspecified hemorrhoids without mention of complication [...] SPINE FUSN,POST INTERBODY 2011 Dr. Armando at [facility]. Diskectomy and laminectomy PAST SURGICAL HISTORY OF 03/07/1999 removal facial lesion PAST SURGICAL HISTORY OF 08/17/2014 excision soft tissue mass left index finger TONSILLECTOMY PRIMARY/SECONDARY TRANSCATH RETRIEVAL,PERCUT 12/28/2006 FAMILY HISTORY Problem Relation Age of Onset Cancer Mother brain Social History Tobacco Use Smoking status: Former Packs/day: 1.00 Years: 10.00 Additional pack years: 0.00 Total pack years: 10.00 Types: Cigarettes Quit date: 02/19/1989 Years since quittin.1 Smokeless tobacco: Never Tobacco comments: Late heavy smoker. Vaping Use Vaping Use: Never used Substance Use Topics Alcohol use: Yes Comment: occasional Drug use: No MEDICATIONS: Reviewed (Not in a hospital admission) Current Facility-Administered Medications Medication Dose Route Frequency perflutren lipid microspheres 1.3 mL in NaCl (PF) 0.9% 10 mL injection (DEFINITY) INTRAVENOUS DIRECTED PRN sodium chloride 0.9 % (flush) 10 mL (BD POSIFLUSH) 10 mL INTRAVENOUS DIRECTED PRN ciprofloxacin iv piggyback 400 mg in [...] 5 mg ORAL q 4 H PRN remdesivir in NaCl 0.9% Vial-Mate/ADD-Topmost 100 mg 275 mL 100 mg INTRAVENOUS [...] (SPORANOX) 200 mg ORAL BID phenol 1 [place] (CHLORASEPTIC) 1 [place] MUCOUS MEMBRANE (TOPICAL MOUTH AND THROAT) q 2 H PRN . ALLERGIES Allerg (more content not included)... Normal [facility] CONSULT PROGon 03-21-2023 CONSULT PROG HNO ID: [id number] Author: MAGAN VILLAFUERTE DO Service: Pulmonary Disease Author Type: Physician Type: Consult Progress Note Filed: 03/21/2023 09:00 Note Text: CONSULT PROGRESS NOTE SERVICE DATE: 03/21/2023 SERVICE TIME: 8:15 AM Admission Date: 03/19/2023 HPI: This is a 77 year old female former 10 pack year smoker with PMH significant for -RA (Humira, off Methotrexate for at least a month secondary to increased liver enzymes), -GERD, -HTN, -h/o disseminated Histoplasmosis in 7011-0115 managed on itraconazole, ne H an M Ab positive for which she was started on itraconazole 200 mg TID started on 03/14 with flonase -bronchiectasis-mucinex, acapella. 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 Patient reports she had a cough attack and noticed some blood tinged sputum prompting her to call her PCP office who then directed her to go to the ED. CT PE was obtained and showed no evidence of pulmonary embolism or pneumonia and a CT abdomen pelvis was obtained and was found to have evidence of small free air inside the abdomen. INR on arrival to [place] was 9. She given Vitamin K and transferred here. COVID testing in [place] was positive Patient complains of chronic sore throat and cough since , seen by pulm clinic who repeated CT Chest for new findings and also for pulm nodule f/u which showed: evolving infectious/inflammatory process such as ROQUE infection with mild bronchiectasis most pronounced in the right middle lobe and lingula and with scattered centrilobular tree-in-bud type subcentimeter nodules. While certain areas appear slightly improved, certain areas have progressed in the interval, as described. Stable in size 1.2 cm left lower lobe irregular nodule with faint calcifications suggesting calcified granuloma. CT chest in July 2022 demonstrated stable left lower lobe nodule with a new cluster of nodules in right lower lobe. Patient instructed to consistently use mucus clearing techniques with bronchopulmonary hygiene. Follw up CT chest 02/21/2023 demonstrates interval development of innumerable micronodules throughout the lungs in an almost miliary distribution, most prominently in upper lobes. Patient denies any abdominal pain, nausea, vomiting, fevers, or chills. Last colonoscopy in 2019 with no abnormalities noted. Environmental and occupational exposure: [place] 1996[place] Rarely uses a wood burner to supplement heat. Basement is historically dry, damp floor recently following rains. Hot water heat. No Central A/C. Bedroom juan antonio is wall to wall carpet, hardwood elsewhere. 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 No sustained Rx with Amiodarone, Nitrofurantoin, cancer chemotherapy. Smoking h/o: [id number] former smoker, quit in 1989. Late was a heavy smoker Subjective PC 149 Mild transaminitis noted. If ALT>10 ULN will d/c Na 128 PC going down INR >8 Histoplasma positive Histoplasma H and M band present Objective PAST MEDICAL HISTORY Diagnosis Date Anemia Bone [...] positive rheumatoid factor (HCC) 03/07/2015 Dr. Hurley ([facility]) Unspecified hemorrhoids without mention of complication [...] SPINE FUSN,POST INTERBODY 2011 Dr. Armando at [facility]. Diskectomy and laminectomy PAST SURGICAL HISTORY OF 03/07/1999 removal facial lesion PAST SURGICAL HISTORY OF 08/17/2014 excision soft tissue mass left index finger TONSILLECTOMY PRIMARY/ (more content not included)... Normal [facility] Comprehensive metabolic 2000 panelon 03-21-2023 Albumin [Mass/Vol] 2.8 g/dL Low 3.9-4.9 [facility] Comment on above: Order Comment: Speci men Type: BLOOD SPECIMEN Ordering Facility: [facility] Address: [address] [place] [address] Performed By: #### 2 4323-8, 67458-1 #### [facility] CLIA [id number] [address] [place] [facility] ALP [Catalytic activity/Vol] 215 U/L High 34-123 [facility] Comment on above: Order Comment: Speci men Type: BLOOD SPECIMEN Ordering Facility: [facility] Address: [address] [place] [address] Performed By: #### 2 4323-8, 69231-5 #### [facility] CLIA [id number] [address] STATES [place] ALT With P-5'-P [Catalytic activity/Vol] 62 U/L High 7-38 [facility] Comment on above: Order Comment: Speci men Type: BLOOD SPECIMEN Ordering Facility: [facility] Address: [address] [place] [address] Performed By: #### 2 4323-8, 81663-4 #### [facility] CLIA [id number] [address] [facility] Anion gap [Moles/Vol] 7 mmol/L Low 9-18 [facility] Comment on above: Order Comment: Speci men Type: BLOOD SPECIMEN Ordering Facility: [facility] Address: [address] [place] [address] Performed By: #### 2 4323-8, 92632-1 #### [facility] CLIA [id number] [address] [place] [facility] AST With P-5'-P [Catalytic activity/Vol] 42 U/L High 13-35 [facility] Comment on above: Order Comment: Speci men Type: BLOOD SPECIMEN Ordering Facility: [facility] Address: [address] [place] [address] Performed By: #### 2 4323-8, 95084-8 #### [facility] CLIA [id number] [address] [place] Bilirubin [Mass/Vol] 0.6 mg/dL Normal 0.2-1.3 [facility] Comment on above: Order Comment: Speci men Type: BLOOD SPECIMEN Ordering Facility: [facility] Address: [address] [place] [address] Performed By: #### 2 4323-8, 26494-7 #### [facility] CLIA [id number] [address] [place] Calcium [Mass/Vol] 8.5 mg/dL Normal 8.5-10.2 [facility] Comment on above: Order Comment: Speci men Type: BLOOD SPECIMEN Ordering Facility: [facility] Address: [address] [place] [address] Performed By: #### 2 4323-8, 15194-8 #### [facility] CLIA [id number] [address] [facility] Chloride [Moles/Vol] 97 mmol/L Normal 97-105 [facility] Comment on above: Order Comment: Speci men Type: BLOOD SPECIMEN Ordering Facility: [facility] Address: [address] [place] [address] Performed By: #### 2 4323-8, 44275-1 #### [facility] CLIA [id number] [address] OF [place] CO2 [Moles/Vol] 26 mmol/L Normal 22-30 [facility] Comment on above: Order Comment: Speci men Type: BLOOD SPECIMEN Ordering Facility: [facility] Address: [address] [place] [address] Performed By: #### 2 4323-8, 83110-9 #### [facility] CLIA [id number] [address] [facility] Creatinine [Mass/Vol] 0.93 mg/dL Normal 0.58-0.96 [facility] Comment on above: Order Comment: Speci men Type: BLOOD SPECIMEN Ordering Facility: [facility] Address: [address] [place] [address] Performed By: #### 2 4323-8, 23870-4 #### [facility] CLIA [id number] [address] Creatinine and Glomerular filtration rate.predicted panel (S/P/Bld) 64 mL/min/1.73m??? Normal >=60 [facility] Comment on above: Order Comment: Speci men Type: BLOOD SPECIMEN Ordering Facility: [facility] Address: [address] [place] [address] Result Comment: Meaghan mated Glomerular Filtration Rate (eGFR) is calculated using the 2020 CKD-EPI creatinine equation. This equation utilizes serum creatinine, sex, and age as parameters. The creatinine assay has traceable calibration to isotope dilution-mass spectrometry. Refer to KDIGO guidelines for clinical interpretation. In patients with unstable renal function, e.g. those with acute kidney injury, the eGFR may not accurately reflect actual GFR. Performed By: #### 2 4323-8, 04139-9 #### [facility] CLIA [id number] 1 [place] [address] [place] Glucose [Mass/Vol] 162 mg/dL High 74-99 [facility] Comment on above: Order Comment: Renay adkins Type: BLOOD SPECIMEN Ordering Facility: [facility] Address: [address] [place] [address] Result Comment: The [place] [employer] (ADA) provides guidance for cutoff values for fasting glucose and random glucose. The ADA defines fasting as no caloric intake for at least 8 hours. Fasting plasma glucose results between 100 to 125 mg/dL indicate increased risk for diabetes (prediabetes). Fasting plasma glucose results greater than or equal to 126 mg/dL meet the criteria for diagnosis of diabetes. In the absence of unequivocal hyperglycemia, results should be confirmed by repeat testing. In a patient with classic symptoms of hyperglycemia or hyperglycemic crisis, random plasma glucose results greater than or equal to 200 mg/dL meet the criteria for diagnosis of diabetes. Reference: Standards of Medical Care in Diabetes 2016, [place] [employer]. Diabetes Care. 2016.39(Suppl 1). Performed By: #### 2 4323-8, 67593-9 #### [facility] CLIA [id number] 1 [place] [address] [place] Potassium [Moles/Vol] 4.5 mmol/L Normal 3.7-5.1 [facility] Comment on above: Order Comment: Renay men Type: BLOOD SPECIMEN Ordering Facility: [facility] Address: [address] [place] [address] Performed By: #### 2 4323-8, 22000-9 #### [facility] CLIA [id number] 1 [place] [address] [place] Protein [Mass/Vol] 5.0 g/dL Low 6.3-8.0 [facility] Comment on above: Order Comment: Abhilashi men Type: BLOOD SPECIMEN Ordering Facility: [facility] Address: [address] [place] [address] Performed By: #### 2 4323-8, 12309-9 #### [facility] CLIA [id number] [address] Sodium [Moles/Vol] 130 mmol/L Low 136-144 [facility] Comment on above: Order Comment: Speci men Type: BLOOD SPECIMEN Ordering Facility: [facility] Address: [address] [place] [address] Performed By: #### 2 4323-8, 41445-7 #### [facility] CLIA [id number] [address] [place] Urea nitrogen [Mass/Vol] 19 mg/dL Normal 7-21 [facility] Comment on above: Order Comment: Speci men Type: BLOOD SPECIMEN Ordering Facility: [facility] Address: [address] [place] [address] Performed By: #### 2 4323-8, 54508-1 #### [facility] CLIA [id number] [address] ECG COMPLETEon 03-21-2023 ECG COMPLETE Ventricular Rate : 1 03 BPM Atrial Rate : 103 BPM P-R Interval : 134 ms QRS Duration : 80 ms Q-T Interval : 336 ms QTC Calculation(Bazett) : 440 ms Calculated P [place] : 55 degrees Calculated R [place] : 28 degrees Calculated T [place] : 33 degrees SINUS TACHYCARDIA POSSIBLE LEFT ATRIAL ENLARGEMENT LOW VOLTAGE QRS CANNOT RULE OUT ANTERIOR INFARCT , AGE UNDETERMINED ABNORMAL ECG NO PREVIOUS ECGS AVAILABLE Confirmed by MD THAO THOMAS ([id number]) on 03/29/2023 8:55:56 PM NAME : HAYDEE BUSTAMANTE PID : [id number] : 1945 Gender : Female Race : ORD : [id number] Procedure Date : Mar 21 2023 09:24:27 Edit Date : Mar 29 2023 20:55:58 Diagnosis: SINUS TACHYCARDIA POSSIBLE LEFT ATRIAL ENLARGEMENT LOW VOLTAGE QRS CANNOT RULE OUT ANTERIOR INFARCT , AGE UNDETERMINED ABNORMAL ECG NO PREVIOUS ECGS AVAILABLE Confirmed by MD THAO THOMAS ([id number]) on 03/29/2023 8:55:56 PM Test Reason : Check QT Location : 4 : [facility] EM Overread By : MD THAO THOMAS Edited By : MD THAO THOMAS Referred By : , Acquired by : BREN CELIS [facility] ED NOTEon 03-21-2023 ED NOTE HNO ID: [id number] Author: MAGALYS PHILLIPS RN Service: ? Author Type: Registered Nurse Type: ED Notes Filed: 03/21/2023 15:01 Note Text: Report given to Lilia MITCHELL 5100 at this time. No further questions at this time. [facility] ED NOTE HNO ID: [id number] Author: ELKE PELAEZ RN Service: Emergency Medicine Author Type: Registered Nurse Type: ED Notes Filed: 03/21/2023 03:09 Note Text: REPORT GIVEN TO ARJUN MITCHELL [facility] PT panel Coag (PPP)on 2023 INR Coag (PPP) [Relative time] 3.9 {INR} High 0.9-1.3 [facility] Comment on above: Order Comment: Renay adkins Type: BLOOD SPECIMEN Ordering Facility: [facility] Address: [address] [place] [address] Result Comment: Halle min K Antagonist (VKA) Therapeutic Range: INR 2 to 3 (Target INR of 2.5) Note: For patients treated with VKA drugs, such as warfarin, the [place] [employer] 2012 Guideline recommends a therapeutic INR range of 2 to 3 (target INR of 2.5). This recommendation includes high-risk patients with antiphospholipid syndrome with previous arterial or venous thromboembolism, current-generation mechanical or bioprosthetic aortic heart valve replacement. Note: Patients with mechanical aortic valve replacement and additional risk factors for thromboembolic events (atrial fibrillation, previous thromboembolism, LV dysfunction, hypercoagulable conditions) or an older generation mechanical AVR (i.e., ball in-Cage) or any mechanical MVR should have a INR therapeutic range of 2.5 to 3.5 (target INR of 3). Gucarlintt GH, et al. Chest 2012, 141:7S-47S Mitzi RA, et al. JACC 2017, 70: 252-289 Performed By: #### 1 4196-0, 28120-4 #### [facility] CLIA [id number] [address] [place] [facility] PT Coag (PPP) [Time] 37.0 s High 9.7-13.0 [facility] Comment on above: Order Comment: Speci men Type: BLOOD SPECIMEN Ordering Facility: [facility] Address: [address] [place] [address] Performed By: #### 1 4196-0, 24441-1 #### [facility] CLIA [id number] [address] [facility] Procalcitonin SerPl-mCncon 0 03-21-2023 Procalcitonin [Mass/Vol] 0.18 ng/mL High <0.09 [facility] Comment on above: Order Comment: Speci men Type: BLOOD SPECIMEN Ordering Facility: [facility] Address: [facility] [place] [address] Result Comment: For a guided interpretation of test results, please visit the Change in Procalcitonin Calculator, [email or web address]. Performed By: #### 2 4323-8, 96825-3 #### [facility] CLIA [id number] [address] [place] [address] [place] XR CHEST 1V FRONTALon 2023 XR CHEST 1V FRONTAL * * *Final Report* * * DATE OF EXAM: Mar 21 2023 5:45PM AKX [id number] - XR CHEST 1V FRONTAL / PROCEDURE REASON: Cough * * * * Physician Interpretation * * * * EXAMINATION: XR CHEST 1V FRONTAL CLINICAL HISTORY: Cough Comparison: Chest x-ray 02/07/[address] of the chest 02/21/2023 RESULT: Lines, tubes, and devices: None Lungs and pleura: Similar appearance of innumerable tiny pulmonary nodules bilaterally. Mild bibasilar atelectasis. Possible small left pleural effusion. Cardiomediastinal silhouette: Normal cardiomediastinal silhouette. Bones/soft tissues: No acute findings. IMPRESSION: 1. Similar appearance of innumerable tiny pulmonary nodules bilaterally. 2. Mild bibasilar atelectasis. 3. Possible small left pleural effusion versus pleural thickening Jack Machine Operator: PSCIain Transcribe Date/Time: Mar 21 2023 11:07P Dictated by : JANNET MCGOWAN MD This examination was interpreted and the report reviewed and electronically signed by: JANNET MCGOWAN MD on Mar 21 2023 11:10PM EST [id number] Normal [facility] BLOOD TB SCREEN, INCUBATEDon 03-20-2023 M. tuberculosis tuberculin stim IFN-g Ql (Bld) Negative Normal [facility] Comment on above: Order Comment: Speci [facility] Type: BLOOD SPECIMEN Ordering Facility: [facility] Address: [address] [place] [address] Performed By: #### 1 4196-0, 84204-2 #### [facility] CLIA [id number] [address] MITOGEN MINUS NIL >7.27 Normal >=0.50 [facility] Comment on above: Order Comment: Renay [facility] Type: BLOOD SPECIMEN Ordering Facility: [facility] Address: [address] [place] [address] Performed By: #### 1 4196-0, 49996-2 #### [facility] CLIA [id number] [address] TB GAMMA INTERPRETATION Infection with M . tuberculosis complex is unlikely. If latent tuberculosis infection is highly suspected, a negative result does not rule out the infection. Specimens from immunocompromised patients and those <5 years of age may show false negative results. In case of a contact investigation, please repeat 8-12 weeks after a known exposure. Normal [facility] Comment on above: [facility] Type: BLOOD SPECIMEN Ordering Facility: [facility] Address: [address] [place] [address] Performed By: #### 1 4196-0, 74295-1 #### [facility] CLIA [id number] [address] TB NIL 2.73 IU/mL Normal <=8.00 [facility] Comment on above: Order Comment: Renay [facility] Type: BLOOD SPECIMEN Ordering Facility: [facility] Address: [address] [place] [address] Performed By: #### 1 4196-0, 85868-8 #### [facility] CLIA [id number] [address] TB1 AG MINUS NIL <0.00 Normal <0.35 [facility] Comment on above: Order Comment: Speci men Type: BLOOD SPECIMEN Ordering Facility: [facility] Address: [address] [place] [address] Performed By: #### 1 4196-0, 94854-7 #### [facility] CLIA [id number] 1 [place] [address] [place] TB2 AG MINUS NIL <0.00 Normal <0.35 [facility] Comment on above: Order Comment: Speci men Type: BLOOD SPECIMEN Ordering Facility: [facility] Address: [address] [place] [address] Performed By: #### 1 4196-0, 61189-1 #### [facility] CLIA [id number] [address] [place] Basic metabolic 2000 panelon 03-20-2023 Anion gap [Moles/Vol] 8 mmol/L Low 9-18 [facility] Comment on above: Order Comment: Speci men Type: BLOOD SPECIMEN Ordering Facility: [facility] Address: [address] [place] [address] Performed By: #### 1 4196-0, 86861-2 #### [facility] CLIA [id number] [address] [place] Calcium [Mass/Vol] 8.4 mg/dL Low 8.5-10.2 [facility] Comment on above: Order Comment: Speci men Type: BLOOD SPECIMEN Ordering Facility: [facility] Address: [address] [place] [address] Performed By: #### 1 4196-0, 95819-3 #### [facility] CLIA [id number] [address] [facility] Chloride [Moles/Vol] 96 mmol/L Low 97-105 [facility] Comment on above: Order Comment: Speci men Type: BLOOD SPECIMEN Ordering Facility: [facility] Address: [address] [id number] Performed By: #### 1 4196-0, 18940-4 #### [facility] CLIA [id number] 1 [place] [address] [place] CO2 [Moles/Vol] 24 mmol/L Normal 22-30 [facility] Comment on above: Order Comment: Speci men Type: BLOOD SPECIMEN Ordering Facility: [facility] Address: [address] [place] [address] Performed By: #### 1 4196-0, 68073-8 #### [facility] CLIA [id number] [address] [place] Creatinine [Mass/Vol] 0.84 mg/dL Normal 0.58-0.96 [facility] Comment on above: Order Comment: Speci men Type: BLOOD SPECIMEN Ordering Facility: [facility] Address: [address] [place] [address] Performed By: #### 1 4196-0, 77576-3 #### [facility] CLIA [id number] [address] Creatinine and Glomerular filtration rate.predicted panel (S/P/Bld) 73 mL/min/1.73m??? Normal >=60 [facility] Comment on above: Order Comment: Speci men Type: BLOOD SPECIMEN Ordering Facility: [facility] Address: [address] [place] [address] Result Comment: Meaghan mated Glomerular Filtration Rate (eGFR) is calculated using the 2020 CKD-EPI creatinine equation. This equation utilizes serum creatinine, sex, and age as parameters. The creatinine assay has traceable calibration to isotope dilution-mass spectrometry. Refer to KDIGO guidelines for clinical interpretation. In patients with unstable renal function, e.g. those with acute kidney injury, the eGFR may not accurately reflect actual GFR. Performed By: #### 1 4196-0, 01398-8 #### [facility] CLIA [id number] [address] [place] Glucose [Mass/Vol] 77 mg/dL Normal 74-99 [facility] Comment on above: Order Comment: Renay adkins Type: BLOOD SPECIMEN Ordering Facility: [facility] Address: [address] [place], [place] [id number] Result Comment: The [place] Diabetes [employer] (ADA) provides guidance for cutoff values for fasting glucose and random glucose. The ADA defines fasting as no caloric intake for at least 8 hours. Fasting plasma glucose results between 100 to 125 mg/dL indicate increased risk for diabetes (prediabetes). Fasting plasma glucose results greater than or equal to 126 mg/dL meet the criteria for diagnosis of diabetes. In the absence of unequivocal hyperglycemia, results should be confirmed by repeat testing. In a patient with classic symptoms of hyperglycemia or hyperglycemic crisis, random plasma glucose results greater than or equal to 200 mg/dL meet the criteria for diagnosis of diabetes. Reference: Standards of Medical Care in Diabetes 2016, [place] [employer]. Diabetes Care. 2016.39(Suppl 1). Performed By: #### 1 4196-0, 77720-1 #### [facility] CLIA [id number] 1 [place] [address] [place] Potassium [Moles/Vol] 3.9 mmol/L Normal 3.7-5.1 [facility] Comment on above: Order Comment: Renay adkins Type: BLOOD SPECIMEN Ordering Facility: [facility] Address: [address] [place] [address] Performed By: #### 1 4196-0, 53931-6 #### [facility] CLIA [id number] 1 [place] [address] [place] Sodium [Moles/Vol] 128 mmol/L Low 136-144 [facility] Comment on above: Order Comment: Renay adkins Type: BLOOD SPECIMEN Ordering Facility: [facility] Address: [address] [place], [place] [address] Performed By: #### 1 4196-0, 67093-2 #### [facility] CLIA [id number] [address] [place] Urea nitrogen [Mass/Vol] 25 mg/dL High 7-21 [facility] Comment on above: Order Comment: Abhilashi men Type: BLOOD SPECIMEN Ordering Facility: [facility] Address: [address] [place] [address] Performed By: #### 1 4196-0, 65769-0 #### [facility] CLIA [id number] [address] CBC panel Auto (Bld)on 03-20 Erythrocyte distribution width (RBC) [Ratio] 16.3 % High 11.5-15.0 [facility] Comment on above: Order Comment: Speci men Type: BLOOD SPECIMEN Ordering Facility: [facility] Address: [address] [place] [address] Performed By: #### 1 4196-0, 39906-6 #### [facility] CLIA [id number] [address] Hematocrit (Bld) [Volume fraction] 24.6 % Low 36.0-46.0 [facility] Comment on above: Order Comment: Speci men Type: BLOOD SPECIMEN Ordering Facility: [facility] Address: [address] [place] [address] Performed By: #### 1 4196-0, 52777-1 #### [facility] CLIA [id number] [address] Hemoglobin (Bld) [Mass/Vol] 8.1 g/dL Low 11.5-15.5 [facility] Comment on above: Order Comment: Speci men Type: BLOOD SPECIMEN Ordering Facility: [facility] Address: [address] [place] [address] Performed By: #### 1 4196-0, 48703-0 #### [facility] CLIA [id number] [address] MCH (RBC) [Entitic mass] 26.9 pg Normal 26.0-34.0 [facility] Comment on above: Order Comment: Speci men Type: BLOOD SPECIMEN Ordering Facility: [facility] Address: [address] [place] [address] Performed By: #### 1 4196-0, 69545-5 #### [email or web address] CLIA [id number] [address] [place] MCHC (RBC) [Mass/Vol] 32.9 g/dL Normal 30.5-36.0 [facility] Comment on above: Order Comment: Speci men Type: BLOOD SPECIMEN Ordering Facility: [facility] Address: [address] [place] [address] Performed By: #### 1 4196-0, 78630-4 #### [facility] CLIA [id number] [address] [facility] MCV (RBC) [Entitic vol] 81.7 fL Normal 80.0-100.0 [facility] Comment on above: Order Comment: Speci men Type: BLOOD SPECIMEN Ordering Facility: [facility] Address: [address] [place] [address] Performed By: #### 1 4196-0, 17246-6 #### [facility] CLIA [id number] [address] [facility] Nucleated RBC (Bld) [#/Vol] 10*3/uL Normal <0.01 [facility] Comment on above: Order Comment: Speci men Type: BLOOD SPECIMEN Ordering Facility: [facility] Address: [address] [place] [address] Performed By: #### 1 4196-0, 41079-0 #### [facility] CLIA [id number] [address] Platelet mean volume (Bld) [Entitic vol] 10.4 fL Normal 9.0-12.7 [facility] Comment on above: Order Comment: Speci men Type: BLOOD SPECIMEN Ordering Facility: [facility] Address: [address] [place] [address] Performed By: #### 1 4196-0, 47664-2 #### [facility] CLIA [id number] [address] [place] Platelets (Bld) [#/Vol] 126 10*3/uL Low 150-400 [facility] Comment on above: Order Comment: Speci men Type: BLOOD SPECIMEN Ordering Facility: [facility] Address: [address] [place] [address] Result Comment: No c lot detected. Performed By: #### 1 4196-0, 14155-2 #### [facility] CLIA [id number] [address] [place] RBC (Bld) [#/Vol] 3.01 10*6/uL Low 3.90-5.20 [facility] Comment on above: Order Comment: Speci men Type: BLOOD SPECIMEN Ordering Facility: [facility] Address: [address] [place] [address] Performed By: #### 1 4196-0, 82650-7 #### [facility] CLIA [id number] [address] [place] WBC (Bld) [#/Vol] 5.06 10*3/uL Normal 3.70-11.00 [facility] Comment on above: Order Comment: Speci men Type: BLOOD SPECIMEN Ordering Facility: [facility] Address: [address] [place] [address] Performed By: #### 1 4196-0, 34168-6 #### [facility] CLIA [id number] [address] [facility] CONSULTon 03-20-2023 CONSULT HNO ID: [id number] Author: GENO HART MD Service: Infectious Disease Author Type: Physician Type: Consults Filed: 03/20/2023 14:57 Note Text: INITIAL CONSULT INFECTIOUS DISEASE SERVICE DATE: 03/20/2023 SERVICE TIME: 2:30 PM We were asked to evaluate . Haydee Bustamante, a 77 year old yo female by Dr. Dr. Villafuerte for disseminated histoplasmosis in immunosuppressed patient on Humira and methotrexate, new COVID . Our findings and recommendations will be communicated through the shared medical record. ASSESSMENT: #1-recurrent or possibly new infection of pulmonary histoplasmosis possibly recurrent disseminated as the asymptomatic pneumatosis intestinalis may possibly be histo invasion she had positive biopsy of the colon years ago. Just started itraconazole treatment which we will continue here due to her immunosuppression. Hemoptysis #2-COVID positivity although no severe hypoxia but due to her immunosuppressive status we will do remdesivir while here for 3 to 5 days and 10 days dexamethasone #3-history of immunosuppressive therapy-Humira and methotrexate for rheumatoid arthritis control #4-history of histoplasmosis and now positive testing again #5-extensive discussion with mentally the patient but also the pulmonary service who was doing appropriate care for antimicrobials #6-antibiotic monitoring-tolerates #7-pneumatosis intestinalis completely asymptomatic. 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 Also COPD not dependent on oxygen warfarin for recurrent lower extremity DVT, presented to [facility] for hemoptysis, going to the [place] ED but then sent here due to [...] be COVID-positive. Interestingly a CAT scan at [place] found pneumatosis intestinalis and intraperitoneal free air [...] -- 03/21/23 1000 remdesivir in NaCl 0.9% Vial-Mate/ADD-Topmost 100 mg 275 mL 100 mg, INTRAVENOUS, EVERY 24 HOURS See Keithce for full Linked Orders Report. 03/23/23 0959 03/20/23 1300 itraconazole 200 mg oral liquid (SPORANOX) 200 mg, ORAL, 3 TIMES DAILY 03/23/23 1259 03/19/23 2000 ciprofloxacin iv piggyback 400 mg in D5W 200 mL (CIPRO) 400 mg, INTRAVENOUS, EVERY 12 HOURS -- 03/19/23 1930 metroNIDAZOLE iv piggyback 500 mg in NaCl (iso-osmotic) 100 mL (FLAGYL) 500 mg, INTRAVENOUS, EVERY 8 HOURS -- Immuno (more content not included)... Normal [facility] CONSULT PROGon 03-20-2023 CONSULT PROG HNO ID: [id number] Author: MAGAN VILLAFUERTE DO Service: Pulmonary Disease Author Type: Physician Type: Consult Progress Note Filed: 03/20/2023 14:15 Note Text: PROGRESS NOTE SERVICE DATE: 03/20/2023 SERVICE TIME: 8:15 AM Admission Date: 03/19/2023 HPI: This is a 77 year old female former 10 pack year smoker with PMH significant for -RA (Humira, off Methotrexate for at least a month secondary to increased liver enzymes), -GERD, -HTN, -h/o disseminated Histoplasmosis in [id number] managed on itraconazole, ne H an M Ab positive for which she was started on itraconazole 200 mg TID started on 03/14 with flonase -bronchiectasis-mucinex, acapella. 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 Patient reports she had a cough attack and noticed some blood tinged sputum prompting her to call her PCP office who then directed her to go to the ED. CT PE was obtained and showed no evidence of pulmonary embolism or pneumonia and a CT abdomen pelvis was obtained and was found to have evidence of small free air inside the abdomen. INR on arrival to [place] was 9. She given Vitamin K and transferred here. COVID testing in [place] was positive Patient complains of chronic sore throat and cough since , seen by pulm clinic who repeated CT Chest for new findings and also for pulm nodule f/u which showed: evolving infectious/inflammatory process such as ROQUE infection with mild bronchiectasis most pronounced in the right middle lobe and lingula and with scattered centrilobular tree-in-bud type subcentimeter nodules. While certain areas appear slightly improved, certain areas have progressed in the interval, as described. Stable in size 1.2 cm left lower lobe irregular nodule with faint calcifications suggesting calcified granuloma. CT chest in July 2022 demonstrated stable left lower lobe nodule with a new cluster of nodules in right lower lobe. Patient instructed to consistently use mucus clearing techniques with bronchopulmonary hygiene. Follw up CT chest 02/21/2023 demonstrates interval development of innumerable micronodules throughout the lungs in an almost miliary distribution, most prominently in upper lobes. Patient denies any abdominal pain, nausea, vomiting, fevers, or chills. Last colonoscopy in 2019 with no abnormalities noted. Environmental and occupational exposure: [place] 1996[place] Rarely uses a wood burner to supplement heat. Basement is historically dry, damp floor recently following rains. Hot water heat. No Central A/C. Bedroom juan antonio is wall to wall carpet, hardwood elsewhere. 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 No sustained Rx with Amiodarone, Nitrofurantoin, cancer chemotherapy. Smoking h/o: 73-[id number]-[id number] former smoker, quit in 1989. Late was a heavy smoker Subjective Na 128 PC going down INR >8 Histoplasma positive Histoplasma H and M band present Objective PAST MEDICAL HISTORY Diagnosis Date Anemia Bone marrow involvement with histoplasmosis Bronchiectasis (HCC) COPD (chronic obstructive pulmonary disease) ([facility]) Disseminated histoplasmosis Colitis, immunosuppression, 01/2018. Diverticulosis of colon (without mention of hemorrhage) Diverticulosis DVT, recurrent, lower extremity, acute ([facility]) 12/10/2014 Esophageal reflux Hiatal hernia 02/25/2018 Hypertension Lung nodule Personal history of unspecified urinary disorder 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 rheumatoid factor ([facility]) 03/07/2015 Dr. Hurley ([facility]) Unspecified hemorrhoids without mention of complication [...] SPINE FUSN,POST INTERBODY 2011 Dr. Armando at [facility]. Diskectomy and laminectomy PAST SURGICAL HISTORY OF 03/07/1999 removal facial lesion PAST SURGICAL HISTORY OF 08/17/2014 excision soft tissue mass left index finger TONSILLECTOMY PRIMARY/SECONDARY TRANSCATH RETRIEVAL,PERCUT 12/28/2006 medication ALL (more content not included)... Normal [facility] Comprehensive metabolic 2000 panelon 03-20-2023 Albumin [Mass/Vol] 2.6 g/dL Low 3.9-4.9 [facility] Comment on above: Order Comment: Speci men Type: BLOOD SPECIMEN Ordering Facility: [facility] Address: [address] [place] [address] Performed By: #### 3 3959-8, 03699-9 #### [facility] CLIA [id number] [address] ALP [Catalytic activity/Vol] 207 U/L High 34-123 [facility] Comment on above: Order Comment: Speci men Type: BLOOD SPECIMEN Ordering Facility: [facility] Address: [address] [place] [address] Performed By: #### 3 3959-8, 92941-8 #### [facility] CLIA [id number] [address] ALT With P-5'-P [Catalytic activity/Vol] 65 U/L High 7-38 [facility] Comment on above: Order Comment: Speci men Type: BLOOD SPECIMEN Ordering Facility: [facility] Address: [address] [place] [address] Performed By: #### 3 3959-8, 63123-8 #### [facility] CLIA [id number] [address] Anion gap [Moles/Vol] 8 mmol/L Low 9-18 [facility] Comment on above: Order Comment: Speci men Type: BLOOD SPECIMEN Ordering Facility: [facility] Address: [address] [place] [address] Performed By: #### 3 3959-8, 68136-6 #### [facility] CLIA [id number] [address] [place] AST With P-5'-P [Catalytic activity/Vol] 55 U/L High 13-35 [facility] Comment on above: Order Comment: Speci men Type: BLOOD SPECIMEN Ordering Facility: [facility] Address: [address] [place] [address] Performed By: #### 3 3959-8, 08527-7 #### [facility] CLIA [id number] [address] [place] Bilirubin [Mass/Vol] 0.7 mg/dL Normal 0.2-1.3 [facility] Comment on above: Order Comment: Speci men Type: BLOOD SPECIMEN Ordering Facility: [facility] Address: [address] [place] [address] Performed By: #### 3 3959-8, 13130-4 #### [facility] CLIA [id number] [address] [place] [address] [place] Calcium [Mass/Vol] 8.3 mg/dL Low 8.5-10.2 [facility] Comment on above: Order Comment: Speci men Type: BLOOD SPECIMEN Ordering Facility: [facility] Address: [address] [place] [address] Performed By: #### 3 3959-8, 69964-9 #### [facility] CLIA [id number] [address] [place] Chloride [Moles/Vol] 95 mmol/L Low 97-105 [facility] Comment on above: Order Comment: Speci men Type: BLOOD SPECIMEN Ordering Facility: [facility] Address: [address] [place] [address] Performed By: #### 3 3959-8, 14159-1 #### [facility] CLIA [id number] [address] [place] CO2 [Moles/Vol] 25 mmol/L Normal 22-30 [facility] Comment on above: Order Comment: Speci men Type: BLOOD SPECIMEN Ordering Facility: [facility] Address: [address] [place] [address] Performed By: #### 3 3959-8, 57699-5 #### [facility] CLIA [id number] [address] [place] Creatinine [Mass/Vol] 0.86 mg/dL Normal 0.58-0.96 [facility] Comment on above: Order Comment: Speci men Type: BLOOD SPECIMEN Ordering Facility: [facility] Address: [address] [place] [address] Performed By: #### 3 3959-8, 64804-6 #### [facility] CLIA [id number] [address] Creatinine and Glomerular filtration rate.predicted panel (S/P/Bld) 71 mL/min/1.73m??? Normal >=60 [facility] Comment on above: Order Comment: Specbetina adkins Type: BLOOD SPECIMEN Ordering Facility: [facility] Address: [address] [place] [address] Result Comment: Meaghan mated Glomerular Filtration Rate (eGFR) is calculated using the 2020 CKD-EPI creatinine equation. This equation utilizes serum creatinine, sex, and age as parameters. The creatinine assay has traceable calibration to isotope dilution-mass spectrometry. Refer to KDIGO guidelines for clinical interpretation. In patients with unstable renal function, e.g. those with acute kidney injury, the eGFR may not accurately reflect actual GFR. Performed By: #### 3 3959-8, 81632-5 #### [facility] CLIA [id number] [address] Glucose [Mass/Vol] 84 mg/dL Normal 74-99 [facility] Comment on above: Order Comment: Renay adkins Type: BLOOD SPECIMEN Ordering Facility: [facility] Address: [address] [place] [address] Result Comment: The [place] [employer] (ADA) provides guidance for cutoff values for fasting glucose and random glucose. The ADA defines fasting as no caloric intake for at least 8 hours. Fasting plasma glucose results between 100 to 125 mg/dL indicate increased risk for diabetes (prediabetes). Fasting plasma glucose results greater than or equal to 126 mg/dL meet the criteria for diagnosis of diabetes. In the absence of unequivocal hyperglycemia, results should be confirmed by repeat testing. In a patient with classic symptoms of hyperglycemia or hyperglycemic crisis, random plasma glucose results greater than or equal to 200 mg/dL meet the criteria for diagnosis of diabetes. Reference: Standards of Medical Care in Diabetes 2016, [place] [employer]. Diabetes Care. 2016.39(Suppl 1). Performed By: #### 3 3959-8, 07948-6 #### [facility] CLIA [id number] [address] [place] [facility] Potassium [Moles/Vol] 4.3 mmol/L Normal 3.7-5.1 [facility] Comment on above: Order Comment: Speci men Type: BLOOD SPECIMEN Ordering Facility: [facility] Address: [address] [place] [address] Performed By: #### 3 3959-8, 95077-9 #### [facility] CLIA [id number] [address] [place] Protein [Mass/Vol] 4.7 g/dL Low 6.3-8.0 [facility] Comment on above: Order Comment: Speci men Type: BLOOD SPECIMEN Ordering Facility: [facility] Address: [address] [place] [address] Performed By: #### 3 3959-8, 28607-0 #### [facility] CLIA [id number] [address] [place] [address] Sodium [Moles/Vol] 128 mmol/L Low 136-144 [facility] Comment on above: Order Comment: Speci men Type: BLOOD SPECIMEN Ordering Facility: [facility] Address: [address] [place] [address] Performed By: #### 3 3959-8, 14873-0 #### [facility] CLIA [id number] [address] Urea nitrogen [Mass/Vol] 20 mg/dL Normal 7-21 [facility] Comment on above: Order Comment: Speci men Type: BLOOD SPECIMEN Ordering Facility: [facility] Address: [address] [place] [address] Performed By: #### 3 3959-8, 34149-1 #### [facility] CLIA [id number] [address] ED NOTEon 03-20-2023 ED NOTE HNO ID: [id number] Author: ELKE PELAEZ RN Service: Emergency Medicine Author Type: Registered Nurse Type: ED Notes Filed: 03/20/2023 17:13 Note Text: Pt given food tray Normal [facility] ED NOTE HNO ID: [id number] Author: ELKE PELAEZ RN Service: Emergency Medicine Author Type: Registered Nurse Type: ED Notes Filed: 03/20/2023 15:44 Note Text: Pt ambulating to bathroom with steady gait [facility] ED NOTE HNO ID: [id number] Author: AMERICA ASTORGA RN Service: Emergency Medicine Author Type: Registered Nurse Type: ED Notes Filed: 03/20/2023 12:24 Note Text: Pt given lunch tray at this time. [facility] ED NOTE HNO ID: [id number] Author: BIBI GONZALEZ RN Service: Emergency Medicine Author Type: Registered Nurse Type: ED Notes Filed: 03/20/2023 06:27 Note Text: Surgery at bedside [facility] ED NOTE HNO ID: [id number] Author: BIBI GONZALEZ RN Service: Emergency Medicine Author Type: Registered Nurse Type: ED Notes Filed: 03/20/2023 06:23 Note Text: Patient ambulatory to restroom and back with steady gait. [facility] ED NOTE HNO ID: [id number] Author: BIBI GONZALEZ RN Service: Emergency Medicine Author Type: Registered Nurse Type: ED Notes Filed: 03/20/2023 02:11 Note Text: Patient ambulatory to restroom and back with steady gait. [facility] PT panel Coag (PPP)on 2023 INR Coag (PPP) [Relative time] 4.7 {INR} High 0.9-1.3 [facility] Comment on above: Order Comment: Speci men Type: BLOOD SPECIMENOrdering Facility: [facility] Address: [address] [place] [address] Result Comment: Halle min K Antagonist (VKA) Therapeutic Range: INR 2 to 3 (Target INR of 2.5) Note: For patients treated with VKA drugs, such as warfarin, the [place] [employer] 2012 Guideline recommends a therapeutic INR range of 2 to 3 (target INR of 2.5). This recommendation includes high-risk patients with antiphospholipid syndrome with previous arterial or venous thromboembolism, current-generation mechanical or bioprosthetic aortic heart valve replacement. Note: Patients with mechanical aortic valve replacement and additional risk factors for thromboembolic events (atrial fibrillation, previous thromboembolism, LV dysfunction, hypercoagulable conditions) or an older generation mechanical AVR (i.e., ball in-Cage) or any mechanical MVR should have a INR therapeutic range of 2.5 to 3.5 (target INR of 3). Lia GH, et al. Chest 2012, 141:7S-47S Mitzi RA, et al. [facility] 2017, 70: 252-289 Performed By: #### 3 4528-0 ####[facility] [id number] [address] [place] [facility] PT Coag (PPP) [Time] 44.0 s High 9.7-13.0 [facility] Comment on above: Order Comment: Renay adkins Type: BLOOD SPECIMENOrdering Facility: [facility] Address: [address] [place] [address] Performed By: #### 3 4528-0 ####[facility] [id number] [address] [facility] INR Coag (PPP) [Relative time] 5.7 {INR} High 0.9-1.3 [facility] Comment on above: Order Comment: Renay adkins Type: BLOOD SPECIMENOrdering Facility: [facility] Address: [address] [place] [address] Result Comment: Halle min K Antagonist (VKA) Therapeutic Range: INR 2 to 3 (Target INR of 2.5) Note: For patients treated with VKA drugs, such as warfarin, the [place] [employer] 2012 Guideline recommends a therapeutic INR range of 2 to 3 (target INR of 2.5). This recommendation includes high-risk patients with antiphospholipid syndrome with previous arterial or venous thromboembolism, current-generation mechanical or bioprosthetic aortic heart valve replacement. Note: Patients with mechanical aortic valve replacement and additional risk factors for thromboembolic events (atrial fibrillation, previous thromboembolism, LV dysfunction, hypercoagulable conditions) or an older generation mechanical AVR (i.e., ball in-Cage) or any mechanical MVR should have a INR therapeutic range of 2.5 to 3.5 (target INR of 3). Lia ALEXIS, et al. Chest 2012, 141:7S-47S Mitzi RA, et al. [facility] 2017, 70: 252-289 Performed By: #### 3 4528-0 ####[facility] [id number] [address] [place] PT Coag (PPP) [Time] 52.4 s High 9.7-13.0 [facility] Comment on above: Order Comment: Speci men Type: BLOOD SPECIMENOrdering Facility: [facility] Address: [address] [place] [address] Performed By: #### 3 4528-0 ####[facility] [id number] [address] Procalcitonin SerPl-mCncon 0 03-20-2023 Procalcitonin [Mass/Vol] 0.20 ng/mL High <0.09 [facility] Comment on above: Order Comment: Speci men Type: BLOOD SPECIMEN Ordering Facility: [facility] Address: [address] [place] [address] Result Comment: For a guided interpretation of test results, please visit the Change in Procalcitonin Calculator, [email or web address]. Performed By: #### 3 3959-8, 13013-0 #### [facility] CLIA [id number] [address] Resp path 12b Pnl Spec GWEN+p robeon 03-20-2023 Respiratory pathogens DNA and RNA 12b panel GWEN+probe (Unsp spec) ADENOVIRUS: Not detected CORONAVIRUS 229E: Not detected CORONAVIRUS HKU1: Not detected CORONAVIRUS NL63: Not detected CORONAVIRUS OC43: Not detected COVID 19 RESULT: Not detected Reference Range (the expected result in uninfected individuals): Not detected HUMAN METAPNEUMOVIRUS: Not detected RHINOVIRUS/ENTEROVIRUS: Not detected INFLUENZA A VIRUS: Not detected INFLUENZA B VIRUS: Not detected PARAINFLUENZA VIRUS 1: Not detected PARAINFLUENZA VIRUS 2: Not detected PARAINFLUENZA VIRUS 3: Not detected PARAINFLUENZA VIRUS 4: Not detected RESPIRATORY SYNCYTIAL VIRUS: Not detected BORDETELLA PARAPERTUSSIS BY REAL-TIME PCR: Not detected BORDETELLA PERTUSSIS BY REAL-TIME PCR: Not detected CHLAMYDOPHILA PNEUMONIAE: Not detected MYCOPLASMA PNEUMONIAE: Not detected Normal [facility] Comment on above: Performed By: #### 6 0566-7 ####[facility] [id number] [place] [address] [place] Absolute lymphocyte countOrd ered By: Bob Elias on 03-19-2023 Lymphocytes Auto (Unsp spec) [#/Vol] 0.97 10*3/uL 0.83-4.51 [facility] Activated partial thrombopla stin time (aPTT) in platelet poor plasma by coagulation aOrdered By: Bob Elias on 03-19-2023 aPTT Coag (PPP) [Time] 109.6 s 24.1-36.2 [facility] Comment on above: CRITICAL VALUE VERIF IED. CALLED TO MYNOR MITCHELL (ER)03/19/23 1200 Chacho Bernal.RESULTS READ BACK BY SAME. Automated lymphocyte count a s percentage of total leukocytesOrdered By: Bob Elias on 03-19-2023 Lymphocytes/100 WBC Auto (Unsp spec) 15.1 % 19-41 [facility] Basic metabolic 2000 panelon 03-19-2023 Anion gap [Moles/Vol] 8 mmol/L Low 9-18 [facility] Comment on above: Order Comment: Speci men Type: BLOOD SPECIMENOrdering Facility: [facility] Address: [address] [place] [address] Performed By: #### 2 4321-2 ####[facility] [id number] [place] [address] [place] Calcium [Mass/Vol] 8.9 mg/dL Normal 8.5-10.2 [facility] Comment on above: Order Comment: Speci men Type: BLOOD SPECIMENOrdering Facility: [facility] Address: [address] [place] [address] Performed By: #### 2 4321-2 ####[facility] [id number] [address] Chloride [Moles/Vol] 95 mmol/L Low 97-105 [facility] Comment on above: Order Comment: Speci men Type: BLOOD SPECIMENOrdering Facility: [facility] Address: [address] [place] [address] Performed By: #### 2 4321-2 ####[facility] [id number] [address] CO2 [Moles/Vol] 25 mmol/L Normal 22-30 [facility] Comment on above: Order Comment: Speci men Type: BLOOD SPECIMENOrdering Facility: [facility] Address: [address] [place] [address] Performed By: #### 2 4321-2 ####[facility] [id number] [address] Creatinine [Mass/Vol] 0.88 mg/dL Normal 0.58-0.96 [facility] Comment on above: Order Comment: Speci men Type: BLOOD SPECIMENOrdering Facility: [facility] Address: [address] [place] [address] Performed By: #### 2 4321-2 ####[facility]ORY[facility]IA [id number] [address] Creatinine and Glomerular filtration rate.predicted panel (S/P/Bld) 69 mL/min/1.73m??? Normal >=60 [facility] Comment on above: Order Comment: Speci men Type: BLOOD SPECIMENOrdering Facility: [facility] Address: [address] [place] [address] Result Comment: Meaghan mated Glomerular Filtration Rate (eGFR) is calculated using the 2020 CKD-EPI creatinine equation. This equation utilizes serum creatinine, sex, and age as parameters. The creatinine assay has traceable calibration to isotope dilution-mass spectrometry. Refer to KDIGO guidelines for clinical interpretation. In patients with unstable renal function, e.g. those with acute kidney injury, the eGFR may not accurately reflect actual GFR. Performed By: #### 2 4321-2 ####[facility]ORY[facility]IA [id number] [place] [address] [place] Glucose [Mass/Vol] 87 mg/dL Normal 74-99 [facility] Comment on above: Order Comment: Renay lucille Type: BLOOD SPECIMENOrdering Facility: [facility] Address: [address] [place] [address] Result Comment: The [place] [employer] (ADA) provides guidance for cutoff values for fasting glucose and random glucose. The ADA defines fasting as no caloric intake for at least 8 hours. Fasting plasma glucose results between 100 to 125 mg/dL indicate increased risk for diabetes (prediabetes). Fasting plasma glucose results greater than or equal to 126 mg/dL meet the criteria for diagnosis of diabetes. In the absence of unequivocal hyperglycemia, results should be confirmed by repeat testing. In a patient with classic symptoms of hyperglycemia or hyperglycemic crisis, random plasma glucose results greater than or equal to 200 mg/dL meet the criteria for diagnosis of diabetes. Reference: Standards of Medical Care in Diabetes 2016, [place] [employer]. Diabetes Care. 2016.39(Suppl 1). Performed By: #### 2 4321-2 ####[facility]ORYCLIA [id number] [place] [address] [place] Potassium [Moles/Vol] 4.3 mmol/L Normal 3.7-5.1 [facility] Comment on above: Order Comment: Renay adkins Type: BLOOD SPECIMENOrdering Facility: [facility] Address: [address] [place] [address] Performed By: #### 2 4321-2 ####[facility]ORYCLIA [id number] [place] [address] [place] Sodium [Moles/Vol] 128 mmol/L Low 136-144 [facility] Comment on above: Order Comment: Abhilashi lucille Type: BLOOD SPECIMENOrdering Facility: [facility] Address: [address] [place] [address] Performed By: #### 2 4321-2 ####[facility]ORYCLIA [id number] [place] [address] [place] Urea nitrogen [Mass/Vol] 27 mg/dL High 7-21 [facility] Comment on above: Order Comment: Speci men Type: BLOOD SPECIMENOrdering Facility: [facility] Address: [place] [id number] Performed By: #### 2 4321-2 ####[facility]ATORYCLIA [id number] [place] [address] [place] Basophil percentageOrdered B y: Bob Elias on 03-19-2023 Basophil percentage 9.0 g/dL 12.0-15.0 [facility] Basophil percentage 89 mg/dL 74-106 [facility] Basophil percentage 130 mmol/L 136-145 [facility] Basophil percentage 4.5 mmol/L 3.5-5.1 [facility] Basophil percentage 100 mmol/L 98-107 [facility] Basophils (Bld) [#/Vol] 6.4 10*3/uL 4.4-11.0 [facility] Basophils (Bld) [#/Vol] 4.4 10*3/uL 2.0-7.7 [facility] Basophils/100 WBC (Bld) 1.1 % 0-1 [facility] Basophils/100 WBC (Bld) 68.8 % 47-70 [facility] Basophils/100 WBC (Bld) 10.9 % 0-10 [facility] Basophils/100 WBC (Bld) 2.5 % 0-5 [facility] Chloride [Moles/Vol] 100 mmol/L 98-107 [facility] Eosinophils/100 WBC (Bld) 2.5 % 0-5 [facility] Glucose [Mass/Vol] 89 mg/dL 74-106 [facility] Hemoglobin (Bld) [Mass/Vol] 9.0 g/dL 12.0-15.0 [facility] Monocytes/100 WBC (Bld) 10.9 % 0-10 [facility] Neutrophils (Bld) [#/Vol] 4.4 10*3/uL 2.0-7.7 [facility] Neutrophils/100 WBC (Bld) 68.8 % 47-70 [facility] Potassium [Moles/Vol] 4.5 mmol/L 3.5-5.1 [facility] Sodium [Moles/Vol] 130 mmol/L 136-145 [facility] WBC (Bld) [#/Vol] 6.4 10*3/uL 4.4-11.0 [facility] CBC panel Auto (Bld)on 03-19 Erythrocyte distribution width (RBC) [Ratio] 16.3 % High 11.5-15.0 [facility] Comment on above: Order Comment: Speci men Type: BLOOD SPECIMEN [facility] Address: [address] [place] [address] Performed By: #### 1 4196-0, 81803-3 #### [facility] CLIA [id number] [address] [place] Hematocrit (Bld) [Volume fraction] 29.2 % Low 36.0-46.0 [facility] Comment on above: Order Comment: Speci men Type: BLOOD SPECIMEN [facility] Address: [address] [place] [address] Performed By: #### 1 4196-0, 21768-9 #### [employer] [facility] CLIA [id number] [address] [place] [address] [place] Hemoglobin (Bld) [Mass/Vol] 9.6 g/dL Low 11.5-15.5 [facility] Comment on above: Order Comment: Speci men Type: BLOOD SPECIMEN [facility] Address: [address] [place] [address] Performed By: #### 1 4196-0, 56505-0 #### [employer] [facility] CLIA [id number] [address] [place] MCH (RBC) [Entitic mass] 26.7 pg Normal 26.0-34.0 [facility] Comment on above: Order Comment: Speci men Type: BLOOD SPECIMEN [facility] Address: [address] [place] [address] Performed By: #### 1 4196-0, 19852-1 #### [employer] [facility] CLIA [id number] [address] MCHC (RBC) [Mass/Vol] 32.9 g/dL Normal 30.5-36.0 [facility] Comment on above: Order Comment: Speci men Type: BLOOD SPECIMEN [facility] Address: [address] [place] [address] Performed By: #### 1 4196-0, 42049-7 #### [facility] CLIA [id number] [address] MCV (RBC) [Entitic vol] 81.1 fL Normal 80.0-100.0 [facility] Comment on above: Order Comment: Speci men Type: BLOOD SPECIMEN [facility] Address: [address] [place] [address] Performed By: #### 1 4196-0, 29359-6 #### [facility] CLIA [id number] [address] [place] [address] Nucleated RBC (Bld) [#/Vol] 10*3/uL Normal <0.01 [facility] Comment on above: Order Comment: Speci men Type: BLOOD SPECIMEN [facility] Address: [address] [place] [address] Performed By: #### 1 4196-0, 35388-1 #### [facility] CLIA [id number] [address] Platelet mean volume (Bld) [Entitic vol] 9.6 fL Normal 9.0-12.7 [facility] Comment on above: Order Comment: Speci men Type: BLOOD SPECIMEN [facility] Address: [address] [place] [address] Performed By: #### 1 4196-0, 79177-4 #### [facility] CLIA [id number] [address] Platelets (Bld) [#/Vol] 144 10*3/uL Low 150-400 [facility] Comment on above: Order Comment: Speci men Type: BLOOD SPECIMEN [facility] Address: [address] [place], [place] [id number] Performed By: #### 1 4196-0, 68620-8 #### [facility] CLIA [id number] [address] RBC (Bld) [#/Vol] 3.60 10*6/uL Low 3.90-5.20 [facility] Comment on above: Order Comment: Speci men Type: BLOOD SPECIMEN [facility] Address: [address] [place] [address] Performed By: #### 1 4196-0, 33766-7 #### [facility] CLIA [id number] [address] WBC (Bld) [#/Vol] 7.48 10*3/uL Normal 3.70-11.00 [facility] Comment on above: Order Comment: Speci men Type: BLOOD SPECIMEN [facility] Address: [address] [place] [address] Performed By: #### 1 4196-0, 51929-4 #### [facility] CLIA [id number] [address] [place] [address] Determination of erythrocyte mean corpuscular volume (MCV)Ordered By: Bob Elias on 03-19-2023 MCV (RBC) [Entitic vol] 81.5 fL 81-99 [facility] ED NOTEon 03-19-2023 ED NOTE HNO ID: [id number] Author: BIBI GONZALEZ RN Service: Emergency Medicine Author Type: Registered Nurse Type: ED Notes Filed: 03/19/2023 20:07 Note Text: CT notified pt is ready Normal [facility] ED NOTE HNO ID: [id number] Author: APRIL SOARES RN Service: ? Author Type: Registered Nurse Type: ED Notes Filed: 03/19/2023 18:06 Note Text: Bed: 07-ED Expected date: 03/19/23 Expected time: Means of arrival: [facility] Comments: MARTÍN MOMIN: [facility] TRANSFER Normal [facility] ED PROV NOTEon 03-19-2023 ED PROV NOTE HNO ID: [id number] Author: CHACHO ERNST DO Service: Emergency Medicine Author Type: Physician Type: ED Provider Notes Filed: 03/19/2023 20:59 Note Text: Attending Note I evaluated the patient and personally participated in the jim components. I agree with the resident's findings and plan as documented and have discussed the case and management of the patient's care with the resident. HPI: Patient is a 77 year old female with past medical hx as documented below who presents for pneumoperitoneum. Patient presents from [facility] where she initially presented after having worsening cough with hemoptysis. She states that a few weeks ago she was diagnosed with histoplasmosis for which she has been following with a nursing director in [place]. She states that yesterday morning she was woken up from her sleep with persistent coughing and an episode of hemoptysis. She states that she has intermittently had blood tinge to her sputum but states that this was much more than normal. She is on Coumadin for history of prior DVT and states that she has been compliant with this. While she was at [place], she was found to have an INR above 9 and was given vitamin K. CT PE was obtained and showed no evidence of pulmonary embolism or pneumonia and a CT abdomen pelvis was obtained and was found to have evidence of small free air inside the abdomen. She was given antibiotics and transferred for surgical evaluation. Upon arrival the patient denies any abdominal pain at this time. She denies nausea, vomiting, chest pain, shortness of breath. Denies numbness, tingling. PAST MEDICAL HISTORY Diagnosis Date Anemia Bone [...] positive rheumatoid factor (HCC) 03/07/2015 Dr. Hurley ([facility]) Unspecified hemorrhoids without mention of complication Hemorrhoids EXAM: General: Hemodynamically stable and in no distress HEENT: Normocephalic, atraumatic. EOMI, PERRLA. CV: Regular rate and rhythm Respiratory: Diminished bilaterally with no wheezing rhonchi or rales Abdomen: Soft nontender without rebound or guarding present. No distention noted. No rigidity noted. Neurologic: Awake, alert. Normal speech pattern. Moving all 4 extremities at all major joints. No obvious sensory deficits of the extremities. Musculoskeletal: No obvious bony abnormalities. No midline cervical, thoracic, lumbosacral tenderness. Extremities: No swelling or edema of the extremities. Extremities warm and well perfused. MDM: Patient is a 77 year old female with past medical hx as documented below who presents for pneumoperitoneum. See HPI. Upon patient arrival, general surgery was consulted. Patient's INR remains elevated above 8. There is no evidence of active bleeding at this time and she otherwise has remained hemodynamically stable. Lactic acid was normal at 1.2. Hemoglobin down trended to 9.6 from 2 months ago at 11. BMP was overall unremarkable. Patient was started on Flagyl and Cipro was admitted to general surgery under Dr. Madrid for further evaluation of her pneumoperitoneum. CHACHO ERNST 03/19/232058 Normal [facility] ED PROV NOTE HNO ID: [id number] Author: CHACHO ERNST DO Service: Emergency Medicine Author Type: Resident Type: ED Provider Notes Filed: 03/24/2023 09:26 Note Text: Attestation signed by Chacho Ernst DO at 03/24/2023 9:26 AM Attending Physician Note: I evaluated the patient and personally participated in the jim components. I agree with the resident's findings and plan as documented and have discussed the case and management of the patient's care with the resident. Jim findings confirmed. I was present for jim portions of and personally supervised any/all procedures. See separate attending note. Signature: Chacho Ernst DO Date: 03/24/2023 Time: 9:26 AM ED Provider Note Patient Name: Haydee Bustamante : 1945 SERVICE DATE: 03/19/23 History Patient presents with: Functional Transfers: Pt transferred from [place] ED for free air and perf bowel. Pt states she initially went to the hospital for ongoing sore throat and one episode of hemoptysis early this morning. Pt denies chest or abd pain. Pt tested positive for Covid at [place]. HPI Patient is a 77-year-old female with past medical history of DVT on Coumadin, COPD, recent diagnosis of histoplasmosis and Blastomyces, COVID-positive today presenting to the emergency department from was from [facility] due to possible bowel perf on imaging. Pt denies any pain currently. Pt reports that she went to [place] this morning after spitting up a small amount of bright red blood from a cough which has been ongoing since January. Pt reports having a sore throat at this time but denies any lightheadedness, CP, SOB, abdominal pain, and denies any nausea or vomiting. Per EMS, pt had an INR of 9.4 at [place]. Patient reports that she is on Coumadin due to a history of previous DVTs and reports that she has been compliant with her medication. PAST MEDICAL HISTORY Diagnosis Date Anemia Bone [...] positive rheumatoid factor (HCC) 03/07/2015 Dr. Hurley ([facility]) Unspecified hemorrhoids without mention of complication [...] SPINE FUSN,POST INTERBODY 2012 Dr. Armando at [facility]. Diskectomy and laminectomy PAST SURGICAL HISTORY OF 03/07/1999 removal facial lesion PAST SURGICAL HISTORY OF 08/17/2014 excision soft tissue mass left index finger TONSILLECTOMY PRIMARY/SECONDARY TRANSCATH RETRIEVAL,PERCUT 12/28/2006 FAMILY HISTORY Problem Relation Age of Onset Cancer Mother brain Social History Tobacco Use Smoking status: Former Packs/day: 1.00 Years: 10.00 Additional pack years: 0.00 Total pack years: 10.00 Types: Cigarettes Quit date: 02/19/1989 Years since quittin.0 Smokeless tobacco: Never Tobacco comments: Late heavy smoker. Vaping Use Vaping Use: Never used Substance and Sexual Activity Alcohol use: Yes Comment: occasional Drug use: No Sexual activity: Yes Partners: Male ALLERGIES Allergen Reactions Penicillins Hives Review of Systems As mentioned in HPI Physical Exam Vitals [03/19/23 1818] BP Pulse Temp Temp src Resp SpO2 Weight Height 117/65 (!) 103 36.8 ?C (98.3 ?F) Oral 23 95 % 54.9 kg (121 lb) 1.6 m (5' 3") Physical Exam Constitutional: General: She is not in acute distress. Appearance: She is not ill-appearing or diaphoretic. HENT: Head: Normocephalic and atraumatic. Mouth/Throat: Pharynx: No posterior oropharyngeal erythema. Eyes: Extraocular Movements: Extraocular movements intact. Cardiovascular: Rate and Rhythm: Regular rhythm. Tachycardia present. Heart sounds: Normal heart sounds. Pulmonary: Effort: Pulmonary effort is normal. No respiratory distress. Breath sounds: Normal breath sounds. No wheezing. Abdominal: General: There is no (more content not included)... Normal [facility] Erythrocyte distribution wid th ratioOrdered By: Bob Schwiger on 03-19-2023 Erythrocyte distribution width (RBC) [Ratio] 16.3 % 11.6-14.6 [facility] Erythrocyte distribution wid th standard deviationOrdered By: Bob Elias on 03-19-2023 Erythrocyte distribution width (RBC) [Entitic vol] 48.3 fL 35.1-43.9 [facility] HISTORY PHYSICALon HISTORY PHYSICAL HNO ID: [id number] Author: PAMELA HALL MD Service: General Surgery Author Type: Physician Type: H&P Filed: 03/20/2023 14:46 Note Text: HISTORY AND PHYSICAL EXAMINATION SERVICE DATE: 03/19/2023 SERVICE TIME: 7:12 PM PRIMARY CARE PHYSICIAN: Claudine Durán MD Subjective CHIEF COMPLAINT: Hemoptysis HPI: This is a 77 year old female former 10 pack year smoker with PMH significant for RA (Humira), HTN, h/o disseminated Histoplasmosis, bronchiectasis, VTE (on coumadin), pulmonary nodules, and presenting to the ED today after an episode of hemoptysis at home. Patient reports she had a cough attack and noticed some blood tinged sputum prompting her to call her PCP office who then directed her to go to the ED. CTAP had an incidental finding of a small amount of intraperitoneal air and pneumatosis in the colon. INR on arrival to [place] was 9. She given Vitamin K and transferred here. Patient denies any abdominal pain, nausea, vomiting, fevers, or chills. Patient reports normal bowel movements. Slightly tachycardic on arrival. HDS. Repeat CBC, BMP, PT/INR pending. CTAP read in [facility], currently waiting on image transfer from [place]. Noprevious abdominal surgeries. Last colonoscopy in 2019 with no abnormalities noted. FUNCTIONAL STATUS: Independent PAST MEDICAL HISTORY Diagnosis Date Anemia Bone [...] positive rheumatoid factor (HCC) 03/07/2015 Dr. Hurley ([facility]) Unspecified hemorrhoids without mention of complication [...] SPINE FUSN,POST INTERBODY 2011 Dr. Armando at [facility]. Diskectomy and laminectomy PAST SURGICAL HISTORY OF 03/07/1999 removal facial lesion PAST SURGICAL HISTORY OF 08/17/2014 excision soft tissue mass left index finger TONSILLECTOMY PRIMARY/SECONDARY TRANSCATH RETRIEVAL,PERCUT 12/28/2006 FAMILY HISTORY Problem Relation Age of Onset Cancer Mother brain Social History Tobacco Use Smoking status: Former Packs/day: 1.00 Years: 10.00 Additional pack years: 0.00 Total pack years: 10.00 Types: Cigarettes Quit date: 02/19/1989 Years since quittin.0 Smokeless tobacco: Never Tobacco comments: Late heavy smoker. Vaping Use Vaping Use: Never used Substance Use Topics Alcohol use: Yes Comment: occasional Drug use: No (Not in a hospital admission) ALLERGIES Allergen Reactions Penicillins Hives COMPLETE REVIEW OF SYSTEMS: CONSTITUTIONAL: No fevers, chills HEENT: Denies frequent or severe heaches, nasal congestion/sinus symptoms, problematic allergy problems. EYES: No vision changes CARDIOVASCULAR: No chest pain. PULM: No Shortness of Breath. GI: No Nausea, Vomiting, or abdominal pain : No pain with urination or gross hematuria. NEURO: No weakness or numbness of concern. MUSC-SKEL: No new joint pain, swelling, or erythema. Objective PHYSICAL EXAM: Exam: GENERAL: No distress, Alert NEURO: AANDOx3, CN II-XII grossly intact HEENT: normocephalic, atraumatic LUNGS: Unlabored breathing CARDIAC: Regular rate and rhythm as above ABDOMEN: Soft, non-tender, non-distended EXTREMITIES: ZAPATA, No deformities, No edema SKIN: Skin color, texture, turgor normal, No rashes or lesions BP 117/65 Pulse 103 Temp (Src) 98.3 (Oral) Resp 23 Ht 5' 3" (1.60m) Wt 121 lb (54.9kg) SpO2 95% BMI 21.44 kg/(m2). O2 Therapy: Room Air DATA: Diagnostic tests reviewed for today's visit: Most recent labs and imaging results. Assessment/Plan This is a 77 year old female former 10 pack year smoker with PMH significant for RA (Humira), HTN, h/o disseminated Histoplasmosis, bronchiectasis, VTE (on coumadin), pulmonary nodules, and presenting to the ED today after an episode of hemoptysis at home. CTAP had an incidental finding of a small amount of intraperitoneal air and pneumatosis in the colon. INR on arrival to [place] was 9. She given Vitamin K and transferred here. Pneumatosis intestinalis (more content not included)... Normal [facility] Hematocrit Auto (Bld) [Volum e fraction]Ordered By: Bob Elias on 03-19-2023 Hematocrit (Bld) [Volume fraction] 27.7 % 37-47 [facility] Immature granulocytes/100 WB C Auto (Bld)Ordered By: Bob Elias on 03-19-2023 Immature granulocytes/100 WBC (Bld) 1.600 % 0.0-0.9 [facility] Comment on above: IG% - Immature Granu locytes (promyelocytes, myelocytes and metamyelocytes) > 1% indicates that a LEFT SHIFT is Present. International normalized rat io (INR) calculationOrdered By: Bob Elias on 03-19-2023 INR Coag (PPP) [Relative time] 9.4 {INR} [facility] Comment on above: CRITICAL VALUE VERIF IED. CALLED TO MYNOR MITCHELL (ER)03/19/23 1200 Chacho Bernal.RESULTS READ BACK BY SAME. Laboratory - Chemistry and C hemistry - challengeOrdered By: Bob Elias on 03-19-2023 CO2 [Moles/Vol] 26.0 mmol/L 21.0-32.0 [facility] Urea nitrogen/Creatinine [Mass ratio] 35.7 mg/mg 10-20 [facility] Laboratory - CoagulationOrde red By: Bob Elias on 03-19-2023 PT Coag (PPP) [Time] 78.0 s 11.7-14.9 [facility] Laboratory - Hematology and Cell countsOrdered By: Bob Elias on 03-19-2023 MCH (RBC) [Entitic mass] 26.5 pg 27.0-32.0 [facility] MCHC (RBC) [Mass/Vol] 32.5 g/dL 32-36 [facility] Nucleated RBC/100 WBC (Bld) [Ratio] 0 % 0-5 [facility] Platelets (Bld) [#/Vol] 145 10*3/uL 150-450 [facility] Laboratory - Microbiology an d Antimicrobial susceptibilityOrdered By: Bob Elias on 03-19-2023 SARS-CoV-2 (COVID-19) RNA GWEN+probe Ql (Unsp spec) SARS-CoV-2 (COVID 19 PCR) [facility] SARS-CoV-2 (COVID-19) RNA GWEN+probe Ql (Unsp spec) SARS-CoV-2 (COVID 19 PCR) [facility] Lactate (Bld) [Moles/Vol]on 03-19-2023 Lactate [Moles/Vol] 1.2 mmol/L Normal 0.5-2.2 [facility] Comment on above: Order Comment: Speci men Type: BLOOD SPECIMEN [facility] Address: [address] [place] [address] Performed By: #### 1 4196-0, 66538-9 #### [facility] CLIA [id number] [address] [place] [address] [place] No Panel InformationOrdered By: Bob Elias on 03-19-2023 Estimated Creatinine Clearance Calc 44.81 ml/min [facility] Estimated GFR (MDRD) Amer 73 mL/min >60 [facility] Comment on above: GFR Calc Estimated GFR (MDRD) Non-Af Amer 61 mL/min >60 [facility] Comment on above: Non- GFR Calc 26.5 pg 27.0-32.0 [facility] 32.5 g/dL 32- [facility] 145 K/mm3 150-450 [facility] 0 % 0-5 [facility] 78.0 SECONDS 11.7-14.9 [facility] 61 mL/min >60 [facility] 73 mL/min >60 [facility] 44.81 ml/min [facility] 35.7 RATIO 10-20 [facility] 26.0 mmol/L 21.0-32.0 [facility] SARS-CoV-2 (COVID 19 PCR) [facility] PT panel Coag (PPP)on 2023 INR Coag (PPP) [Relative time] {INR} High 0.9-1.3 [facility] Comment on above: Order Comment: Renay adkins Type: BLOOD SPECIMEN [facility] Address: [address] [place] [address] Result Comment: Halle min K Antagonist (VKA) Therapeutic Range: INR 2 to 3 (Target INR of 2.5) Note: For patients treated with VKA drugs, such as warfarin, the [place] [employer] 2012 Guideline recommends a therapeutic INR range of 2 to 3 (target INR of 2.5). This recommendation includes high-risk patients with antiphospholipid syndrome with previous arterial or venous thromboembolism, current-generation mechanical or bioprosthetic aortic heart valve replacement. Note: Patients with mechanical aortic valve replacement and additional risk factors for thromboembolic events (atrial fibrillation, previous thromboembolism, LV dysfunction, hypercoagulable conditions) or an older generation mechanical AVR (i.e., ball in-Cage) or any mechanical MVR should have a INR therapeutic range of 2.5 to 3.5 (target INR of 3). Lia GH, et al. Chest 2012, 141:7S-47S Mitzi RA, et al. [facility] 2017, 70: 252-289 Performed By: #### 1 4196-0, 96906-0 #### [facility] CLIA [id number] [address] [place] PT Coag (PPP) [Time] 76.9 s High 9.7-13.0 [facility] Comment on above: Order Comment: Renay adkins Type: BLOOD SPECIMEN [facility] Address: [address] [place] [address] Performed By: #### 1 4196-0, 77245-3 #### [facility] CLIA [id number] [address] [place] [address] [place] Platelet mean volume Nicholas-Ec ker (Bld) [Entitic vol]Ordered By: Bob Elias on 03-19-2023 Platelet mean volume (Bld) [Entitic vol] 10.3 fL 6.2-12.0 [facility] RBC Auto (Bld) [#/Vol]Ordere d By: Bob Elias on 03-19-2023 RBC (Bld) [#/Vol] 3.40 10*6/uL 4.2-5.4 [facility] Serum or plasma calcium monica urement (mass/volume)Ordered By: Bob lEias on 03-19-2023 Calcium [Mass/Vol] 9.1 mg/dL 8.5-10.1 [facility] Serum or plasma creatinine m easurement (mass/volume)Ordered By: Bob Elias on 03-19-2023 Creatinine [Mass/Vol] 0.95 mg/dL 0.55-1.02 [facility] Comment on above: The validity of the calculated GFR & GFRAA in patients over 70 years has not been determined. Clinical correlation is essential. Serum or plasma urea nitroge n measurement (mass/volume)Ordered By: Bob Elias on 03-19-2023 Urea nitrogen [Mass/Vol] 34 mg/dL 7-18 [facility] Thin prep Papanicolaou smear with manual screeningOrdered By: Bob Elias on 03-19-2023 Thin prep Papanicolaou smear with manual screening 4 5-15 [facility] COVID & INFLUENZA A/B & RSV NAAT, ROUTINEon 02-07-2023 FLUAV RNA GWEN+probe Ql (Unsp spec) Not detected Not Detected [facility] FLUBV RNA GWEN+probe Ql (Unsp spec) Not detected Not Detected [facility] RSV A RNA GWEN+probe Ql (Unsp spec) Not detected Not Detected [facility] SARS-CoV-2 (COVID-19) RNA GWEN+probe Ql (Resp) Not detected See comment [facility] XR CHEST 2V FRONTAL/LATon [facility] XR Chest PA and Lateralon IMPRESSION: Mild prominence markings RIGHT lung base may be due to known RIGHT middle lobe bronchiectasis. Small infiltrate cannot be excluded. Jack Machine Operator: KRYSTAL Transcribe Date/Time: Feb 07 2023 11:42A Dictated by : JASMYN MÉNDEZ MD This examination was interpreted and the report reviewed and electronically signed by: JASMYN MÉNDEZ MD on Feb 07 2023 11:46AM [facility] DIVISION OF RADIOLOGY * * *Final Report* * * DATE OF EXAM: Feb 07 2023 11:15AM WOX 5291 - XR CHEST 2V FRONTAL/LAT / PROCEDURE REASON: Acute cough * * * * Physician Interpretation * * * * EXAMINATION: CHEST RADIOGRAPH (2 VIEW FRONTAL & LATERAL) CLINICAL HISTORY: Acute cough MQ: XC2_6 EXAM DATE/TIME: 02/07/2023 11:15 AM COMPARISON: No relevant prior studies available. RESULT: Lines, tubes, and devices: None. Lungs and pleura: Mild prominence RIGHT infrahilar markings. No evidence of pulmonary vascular redistribution or pleural effusion. Cardiomediastinal silhouette: Normal cardiomediastinal silhouette. Bones and soft tissues: Unremarkable. DIVISION OF RADIOLOGY Provider, [facility] - 02/07/2023 * * *Final Report* * * DATE OF EXAM: Feb 07 2023 11:15AM WOX 5291 - XR CHEST 2V FRONTAL/LAT / PROCEDURE REASON: Acute cough * * * * Physician Interpretation * * * * EXAMINATION: CHEST RADIOGRAPH (2 VIEW FRONTAL & LATERAL) CLINICAL HISTORY: Acute cough MQ: XC2_6 EXAM DATE/TIME: 02/07/2023 11:15 AM COMPARISON: No relevant prior studies available. RESULT: Lines, tubes, and devices: None. Lungs and pleura: Mild prominence RIGHT infrahilar markings. No evidence of pulmonary vascular redistribution or pleural effusion. Cardiomediastinal silhouette: Normal cardiomediastinal silhouette. Bones and soft tissues: Unremarkable. IMPRESSION IMPRESSION: Mild prominence markings RIGHT lung base may be due to known RIGHT middle lobe bronchiectasis. Small infiltrate cannot be excluded. Jack Machine Operator: KRYSTAL Transcribe Date/Time: Feb 07 2023 11:42A Dictated by : JASMYN MÉNDEZ MD This examination was interpreted and the report reviewed and electronically signed by: JASMYN MÉNDEZ MD on Feb 07 2023 11:46AM EST [facility] Radiology Study observation (narrative) [facility] XR Chest PA and LateralOrder ed By: [facility] Provider on 02-07-2023 [facility] INR (POC)on 01-04-2023 INR Coag (PPP) [Relative time] 2.6 {INR} High 0.8 - 1.2 [facility] Internal Quality Check Acceptable Cl [facility] SABINO SCREENING W TOMOon 11-17 [facility] ECG COMPLETEon 08-30-2022 Atrial Rate 75 BPM [facility] Calculated P [place] 63 degrees [facility] Calculated R [place] 46 degrees [facility] Calculated T [place] 58 degrees [facility] P-R Interval 156 ms [facility] QRS Duration 62 ms [facility] QT Interval 358 ms [facility] QTC Calculation (Bazett) 399 ms [facility] Ventricular Rate 75 BPM [facility] [address] CHEST WO IVCONon 07-21-19 [facility] XR Pelvis and Hip - left AP and Lateral frogon 12-31-2021 IMPRESSION: No acute pathology. 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 Jack Machine Operator: PSCB Transcribe Date/Time: Dec 31 2021 11:55A Dictated by : BANDAR BELL DO This examination was interpreted and the report reviewed and electronically signed by: BANDAR BELL DO on Dec 31 2021 11:58AM EST DIVISION OF RADIOLOGY * * *Final Report* * * DATE [...] hip: No fractures or dislocations are seen. DIVISION OF RADIOLOGY Provider, Narayan Napoles - 12/31/2021 * * *Final Report* * * DATE [...] hip: No fractures or dislocations are seen. IMPRESSION IMPRESSION: No acute pathology. 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 Jack Machine Operator: KRYSTAL Transcribe Date/Time: Dec 31 2021 11:55A Dictated by : BANDAR BELL DO This examination was interpreted and the report reviewed and electronically signed by: BANDAR BELL DO on Dec 31 2021 11:58AM EST [facility] Radiology Study observation (narrative) [facility] XR Pelvis and Hip - left AP and Lateral frogOrdered By: [facility] Provider on 12-31-2021 [facility] No Panel Informationon 10-18 [facility] SABINO DIAGNOSTIC LTon 10-13-19 22 [facility] US BREAST LTD LTon 2 [facility] SABINO SCREENINGon 09-05-2021 [facility] INR in Blood by Coagulation assayon 07-07-2021 INR Coag (Bld) [Relative time] 1.7 {INR} [facility] Work Phone: Laboratory - Coagulationon 0 07-07-2021 PT Coag (PPP) [Time] 19.5 s 11.7-14.9 [facility] Work Phone: Histoplasma Ag, Urineon 02-19 Histoplasma Ag,Urine Not Detected Normal [facility] Comment on above: Performed By: #### H ISUO #### The performing lab is in the report. Interpretation Not Detected Normal Not Detected [facility] Comment on above: Result Comment: INTE RPRETIVE DATA: Histoplasma Galactomannan Antigen Quantitative by EIA, Urine Less than 0.4 ng/ml = Not Detected 0.4-3.1 ng/mL = Detected (below the limit of quantification) 3.2-20.0 ng/mL = Detected Greater than 20.0 ng/mL = Detected (above the limit of quantification) The quantitative range of this assay is 3.2-20.0 ng/mL. Antigen concentrations between 0.4-3.1 or >20.0 ng/mL fall outside the linear range of the assay and cannot be accurately quantified. This EIA test should be used in conjunction with other diagnostic procedures, including microbiological culture, histological examination of biopsy samples, and/or radiographic evidence, to aid in the diagnosis of histoplasmosis. Test developed and characteristics determined by [employer]. See Compliance Statement B: [employer] Performed by [employer], [address] [place] [id number] [email or web address], Christopher Yen MD - Lab. Director Performed By: #### H ISUO #### The performing lab is in the report. Vital Signs Date Time Vital Sign Value Performing Clinician Facility 07-24-2024 10:25-0400 Body height 160.[address] Claudine Durán MD Work Phone: [facility] 07-24-2024 10:25-0400 Body weight 60.[address] Claudine Durán MD Work Phone: [facility] 07-22-2024 14:20-0400 Body height 157.5 cm Brissa Chester APRN.FINANCIAL ANALYSIS ADVISOR Work Phone: [facility] 07-22-2024 14:20-0400 Body mass index (BMI) [Ratio] 23.67 kg/m2 Brissa Chester APRN.FINANCIAL ANALYSIS ADVISOR Work Phone: [facility] 07-22-2024 14:20-0400 Body weight 58.7 kg Brissa Chester APRN.FINANCIAL ANALYSIS ADVISOR Work Phone: [facility] 07-22-2024 14:20-0400 Diastolic blood pressure 65 mm[Hg] Brissa Chester APRN.FINANCIAL ANALYSIS ADVISOR Work Phone: [facility] 07-22-2024 14:20-0400 Heart rate 75 /min Brissa Chester SUPERVISOR IRRIGATION.FINANCIAL ANALYSIS ADVISOR Work Phone: [facility] 07-22-2024 14:20-0400 Respiratory rate 18 /min Brissa Chester SUPERVISOR IRRIGATION.FINANCIAL ANALYSIS ADVISOR Work Phone: [facility] 07-22-2024 14:20-0400 SaO2% (BldA) [Mass fraction] 98 % Brissa Chester SUPERVISOR IRRIGATION.FINANCIAL ANALYSIS ADVISOR Work Phone: [facility] 07-22-2024 14:20-0400 Systolic blood pressure 140 mm[Hg] Brissa Chester SUPERVISOR IRRIGATION.FINANCIAL ANALYSIS ADVISOR Work Phone: [facility] 06-27-2024 08:19-0400 Body height 160.[address] Claudine Durán MD Work Phone: [facility] 06-27-2024 08:19-0400 Body weight 58.[address] Claudine Durán MD Work Phone: [facility] 06-20-2024 10:09-0400 Body mass index (BMI) [Ratio] 22.8 kg/m2 Dr. Claudine Durán MD Work Phone: [facility] 06-20-2024 10:09-0400 Body weight 58.[address] Claudine Durán MD Work Phone: [facility] 06-20-2024 10:09-0400 Diastolic blood pressure 74 mm[Hg] Dr. Claudine Durán MD Work Phone: [facility] 06-20-2024 10:09-0400 Heart rate 85 /min Dr. Claudine Durán MD Work Phone: [facility] 06-20-2024 10:09-0400 Respiratory rate 18 /min Dr. Claudine Durán MD Work Phone: [facility] 06-20-2024 10:09-0400 SaO2% (BldA) [Mass fraction] 98 % Dr. Claudine Durán MD Work Phone: 5(636)947-031792 [place] [address] 06-20-2024 10:09-0400 Systolic blood pressure 125 mm[Hg] Dr. Claudine Durán MD Work Phone: 0(003)320-206892 [place] [address] 05-28-2024 08:23-0400 Body mass index (BMI) [Ratio] 21.9 kg/m2 Dr. Claudine Durán MD Work Phone: 8(851)918-907992 [place] [address] 05-28-2024 08:20-0400 Body height 160.[address] Claudine Durán MD Work Phone: 0(417)100-585292 [place] [address] 05-28-2024 08:20-0400 Body weight 56.[address] Claudine Durán MD Work Phone: 4(385)493-364092 [place] [address] 05-28-2024 08:10-0400 Diastolic blood pressure 54 mm[Hg] Dr. Claudine Durán MD Work Phone: 4(993)936-370592 [place] [address] 05-28-2024 08:10-0400 Heart rate 84 /min Dr. Claudine Durán MD Work Phone: 8(797)395-447792 [place] [address] 05-28-2024 08:10-0400 SaO2% (BldA) [Mass fraction] 98 % Dr. Claudine Durán MD Work Phone: 0(470)781-191392 [place] [address] 05-28-2024 08:10-0400 Systolic blood pressure 100 mm[Hg] Dr. Claudine Durán MD Work Phone: 1(972)433-514192 [place] [address] 05-20-2024 12:53-0400 Body height 159.5 cm Jimbo Swanson SUPERVISOR IRRIGATION.INDUSTRIAL CHEMISTRY TEACHER Work Phone: 9(729)553-743868 [place] [address] 05-20-2024 12:53-0400 Body mass index (BMI) [Ratio] 23.23 kg/m2 Jimbo Swanson SUPERVISOR IRRIGATION.INDUSTRIAL CHEMISTRY TEACHER Work Phone: 0(614)323-526168 [place] [address] 05-20-2024 12:53-0400 Body weight 59.1 kg Jimbo Swanson SUPERVISOR IRRIGATION.INDUSTRIAL CHEMISTRY TEACHER Work Phone: 1(829)891-361268 [place] [address] 05-20-2024 12:53-0400 Diastolic blood pressure 65 mm[Hg] Jimbo Swanson SUPERVISOR IRRIGATION.INDUSTRIAL CHEMISTRY TEACHER Work Phone: [facility] 05-20-2024 12:53-0400 Heart rate 92 /min Jimbo Swanson SUPERVISOR IRRIGATION.INDUSTRIAL CHEMISTRY TEACHER Work Phone: [facility] 05-20-2024 12:53-0400 Respiratory rate 16 /min Jimbo Swanson SUPERVISOR IRRIGATION.INDUSTRIAL CHEMISTRY TEACHER Work Phone: [facility] 05-20-2024 12:53-0400 Systolic blood pressure 113 mm[Hg] Jimbo Swanson SUPERVISOR IRRIGATION.INDUSTRIAL CHEMISTRY TEACHER Work Phone: [facility] 05-05-2024 08:34-0400 Diastolic blood pressure 71 mm[Hg] Adalid Maret SUPERVISOR IRRIGATION.FINANCIAL ANALYSIS ADVISOR Work Phone: [facility] 05-05-2024 08:34-0400 Heart rate 82 /min Adalid Maret SUPERVISOR IRRIGATION.FINANCIAL ANALYSIS ADVISOR Work Phone: [facility] 05-05-2024 08:34-0400 Systolic blood pressure 139 mm[Hg] Adalid Maret SUPERVISOR IRRIGATION.FINANCIAL ANALYSIS ADVISOR Work Phone: [facility] 04-30-2024 13:04-0400 Body height 160 cm [facility] 04-30-2024 13:04-0400 Body mass index (BMI) [Ratio] 23.21 kg/m2 [facility] 04-30-2024 13:04-0400 Body weight 59.42 kg [facility] 04-30-2024 13:04-0400 Diastolic blood pressure 63 mm[Hg] [facility] 04-30-2024 13:04-0400 Heart rate 88 /min [facility] 04-30-2024 13:04-0400 Respiratory rate 16 /min [facility] 04-30-2024 13:04-0400 Systolic blood pressure 115 mm[Hg] [facility] 04-21-2024 10:44-0500 Body height 160 cm Geno Hart MD Work Phone: [facility] 04-21-2024 10:44-0500 Body mass index (BMI) [Ratio] 23.82 kg/m2 Geno Hart MD Work Phone: [facility] 04-21-2024 10:44-0500 Body temperature 97.9 [degF] Geno Hart MD Work Phone: [facility] 04-21-2024 10:44-0500 Body weight 61 kg Geno Hart MD Work Phone: [facility] 04-21-2024 10:44-0500 Diastolic blood pressure 84 mm[Hg] Geno Hart MD Work Phone: [facility] 04-21-2024 10:44-0500 Heart rate 103 /min Geno Hart MD Work Phone: [facility] 04-21-2024 10:44-0500 Respiratory rate 18 /min Geno Hart MD Work Phone: [facility] 04-21-2024 10:44-0500 SaO2% (BldA) [Mass fraction] 97 % Geno Hart MD Work Phone: [facility] 04-21-2024 10:44-0500 Systolic blood pressure 146 mm[Hg] Geno Hart MD Work Phone: [facility] 03-21-2024 09:28-0500 Body height 160 cm Juvencio Saeed MD Work Phone: [facility] 03-21-2024 09:28-0500 Body mass index (BMI) [Ratio] 23.03 kg/m2 Juvencio Saeed MD Work Phone: [facility] 03-21-2024 09:28-0500 Body weight 58.97 kg Juvencio Saeed MD Work Phone: [facility] 03-21-2024 09:28-0500 Diastolic blood pressure 77 mm[Hg] Juvencio Saeed MD Work Phone: [facility] 03-21-2024 09:28-0500 Heart rate 96 /min Juvencio Saeed MD Work Phone: [facility] 03-21-2024 09:28-0500 Respiratory rate 18 /min Juvencio Saeed MD Work Phone: [facility] 03-21-2024 09:28-0500 SaO2% (BldA) [Mass fraction] 96 % Juvencio Saeed MD Work Phone: [facility] Comment on above: RA 03-21-2024 09:28-0500 Systolic blood pressure 141 mm[Hg] Juvencio Saeed MD Work Phone: [facility] 02-29-2024 16:45-0500 Body mass index (BMI) [Ratio] 22.92 kg/m2 Claudine Durán MD Work Phone: [facility] 02-29-2024 16:45-0500 Body temperature 98.8 [degF] Claudine Durán MD Work Phone: [facility] 02-29-2024 16:45-0500 Body weight 58.7 kg Claudine Durán MD Work Phone: [facility] 02-29-2024 16:45-0500 Diastolic blood pressure 86 mm[Hg] Claudine Durán MD Work Phone: [facility] 02-29-2024 16:45-0500 Heart rate 85 /min Claudine Durán MD Work Phone: [facility] 02-29-2024 16:45-0500 Respiratory rate 16 /min Claudine Durán MD Work Phone: [facility] 02-29-2024 16:45-0500 SaO2% (BldA) [Mass fraction] 97 % Claudine Durán MD Work Phone: [facility] 02-29-2024 16:45-0500 Systolic blood pressure 138 mm[Hg] Claudine Durán MD Work Phone: [facility] 01-02-2024 09:09-0500 Body height 160 cm Ines Drew MD Work Phone: [facility] 01-02-2024 09:09-0500 Body mass index (BMI) [Ratio] 21.97 kg/m2 Ines Drew MD Work Phone: [facility] 01-02-2024 09:09-0500 Body weight 56.25 kg Ines Drew MD Work Phone: [facility] 01-02-2024 09:09-0500 Diastolic blood pressure 57 mm[Hg] Ines Drew MD Work Phone: [facility] 01-02-2024 09:09-0500 Heart rate 81 /min Ines Drew MD Work Phone: [facility] 01-02-2024 09:09-0500 SaO2% (BldA) [Mass fraction] 97 % Ines Drew MD Work Phone: [facility] 01-02-2024 09:09-0500 Systolic blood pressure 124 mm[Hg] Ines Drew MD Work Phone: [facility] 12-18-2023 11:02-0400 Body height 160 cm Geno Hart MD Work Phone: [facility] 12-18-2023 11:02-0400 Body mass index (BMI) [Ratio] 22.3 kg/m2 Geno Hart MD Work Phone: [facility] 12-18-2023 11:02-0400 Body temperature 98.71 [degF] Geno Hart MD Work Phone: [facility] 12-18-2023 11:02-0400 Body weight 57.11 kg Geno Hart MD Work Phone: [facility] 12-18-2023 11:02-0400 Diastolic blood pressure 75 mm[Hg] Geno Hart MD Work Phone: [facility] 12-18-2023 11:02-0400 Heart rate 84 /min Geno Hart MD Work Phone: [facility] 12-18-2023 11:02-0400 Respiratory rate 16 /min Geno Hart MD Work Phone: [facility] 12-18-2023 11:02-0400 SaO2% (BldA) [Mass fraction] 98 % Geno Hart MD Work Phone: [facility] 12-18-2023 11:02-0400 Systolic blood pressure 146 mm[Hg] Geno Hart MD Work Phone: [facility] 10-18-2023 10:03-0400 Body height 160 cm Bibi Alegria SUPERVISOR IRRIGATION.FINANCIAL ANALYSIS ADVISOR Work Phone: [facility] 10-18-2023 10:03-0400 Body mass index (BMI) [Ratio] 20.62 kg/m2 Bibi Alegria SUPERVISOR IRRIGATION.FINANCIAL ANALYSIS ADVISOR Work Phone: [facility] 10-18-2023 10:03-0400 Body weight 52.8 kg Bibi Alegria SUPERVISOR IRRIGATION.FINANCIAL ANALYSIS ADVISOR Work Phone: [facility] 10-18-2023 10:03-0400 Diastolic blood pressure 60 mm[Hg] Bibi Alegria SUPERVISOR IRRIGATION.FINANCIAL ANALYSIS ADVISOR Work Phone: [facility] 10-18-2023 10:03-0400 Heart rate 82 /min Bibi Alegria SUPERVISOR IRRIGATION.FINANCIAL ANALYSIS ADVISOR Work Phone: [facility] 10-18-2023 10:03-0400 SaO2% (BldA) [Mass fraction] 99 % Bibi Alegria APRN.FINANCIAL ANALYSIS ADVISOR Work Phone: [facility] 10-18-2023 10:03-0400 Systolic blood pressure 120 mm[Hg] Bibi Alegria SUPERVISOR IRRIGATION.FINANCIAL ANALYSIS ADVISOR Work Phone: [facility] 10-11-2023 13:05-0400 Body mass index (BMI) [Ratio] 20.54 kg/m2 Jimbo Swanson SUPERVISOR IRRIGATION.INDUSTRIAL CHEMISTRY TEACHER Work Phone: [facility] 10-11-2023 13:05-0400 Body weight 52.6 kg Jimbo Swanson SUPERVISOR IRRIGATION.INDUSTRIAL CHEMISTRY TEACHER Work Phone: [facility] 10-11-2023 13:05-0400 Diastolic blood pressure 62 mm[Hg] Jimbo Swanson SUPERVISOR IRRIGATION.INDUSTRIAL CHEMISTRY TEACHER Work Phone: [facility] 10-11-2023 13:05-0400 Heart rate 68 /min Jimbo Swanson SUPERVISOR IRRIGATION.INDUSTRIAL CHEMISTRY TEACHER Work Phone: [facility] 10-11-2023 13:05-0400 Respiratory rate 16 /min Jimbo Swanson SUPERVISOR IRRIGATION.INDUSTRIAL CHEMISTRY TEACHER Work Phone: [facility] 10-11-2023 13:05-0400 Systolic blood pressure 107 mm[Hg] Jimbo Swanson SUPERVISOR IRRIGATION.INDUSTRIAL CHEMISTRY TEACHER Work Phone: [facility] 08-28-2023 08:48-0400 Body height 160 cm Geno Hart MD Work Phone: [facility] 08-28-2023 08:48-0400 Body mass index (BMI) [Ratio] 23.45 kg/m2 Geno Hart MD Work Phone: [facility] 08-28-2023 08:48-0400 Body temperature 98.29 [degF] Geno Hart MD Work Phone: [facility] 08-28-2023 08:48-0400 Body weight 60.06 kg Geno Hart MD Work Phone: [facility] 08-28-2023 08:48-0400 Diastolic blood pressure 69 mm[Hg] Geno Hart MD Work Phone: [facility] 08-28-2023 08:48-0400 Heart rate 79 /min Geno Hart MD Work Phone: [facility] 08-28-2023 08:48-0400 Respiratory rate 18 /min Geno Hart MD Work Phone: [facility] 08-28-2023 08:48-0400 SaO2% (BldA) [Mass fraction] 98 % Geno Hart MD Work Phone: [facility] 08-28-2023 08:48-0400 Systolic blood pressure 129 mm[Hg] Geno Hart MD Work Phone: [facility] 08-27-2023 08:25-0400 Body height 160 cm William Messina DO Work Phone: [facility] 08-27-2023 08:25-0400 Body mass index (BMI) [Ratio] 22.67 kg/m2 William Messina DO Work Phone: [facility] 08-27-2023 08:25-0400 Body weight 58.06 kg William Messina DO Work Phone: [facility] 08-27-2023 08:25-0400 Diastolic blood pressure 68 mm[Hg] William Messina DO Work Phone: [facility] 08-27-2023 08:25-0400 Heart rate 81 /min William Messina DO Work Phone: [facility] 08-27-2023 08:25-0400 SaO2% (BldA) [Mass fraction] 99 % William Messina DO Work Phone: [facility] 08-27-2023 08:25-0400 Systolic blood pressure 116 mm[Hg] William Messina DO Work Phone: [facility] 08-22-2023 10:38-0400 Body mass index (BMI) [Ratio] 23.19 kg/m2 Claudine Durán MD Work Phone: [facility] 08-22-2023 10:38-0400 Body temperature 96.01 [degF] Claudine Durán MD Work Phone: [facility] 08-22-2023 10:38-0400 Body weight 59.38 kg Claudine Durán MD Work Phone: [facility] 08-22-2023 10:38-0400 Diastolic blood pressure 72 mm[Hg] Claudine Durán MD Work Phone: [facility] 08-22-2023 10:38-0400 Heart rate 70 /min Claudine Durán MD Work Phone: [facility] 08-22-2023 10:38-0400 Respiratory rate 18 /min Claudine Durán MD Work Phone: [facility] 08-22-2023 10:38-0400 SaO2% (BldA) [Mass fraction] 98 % Claudine Durán MD Work Phone: [facility] 08-22-2023 10:38-0400 Systolic blood pressure 116 mm[Hg] Claudine Durán MD Work Phone: [facility] 08-08-2023 14:39-0400 Body mass index (BMI) [Ratio] 22.32 kg/m2 Twyla Mason SUPERVISOR IRRIGATION.FINANCIAL ANALYSIS ADVISOR Work Phone: [facility] 08-08-2023 14:39-0400 Body weight 57.15 kg Twyla Mason SUPERVISOR IRRIGATION.FINANCIAL ANALYSIS ADVISOR Work Phone: [facility] 08-08-2023 14:39-0400 Diastolic blood pressure 72 mm[Hg] Twyla Mason SUPERVISOR IRRIGATION.FINANCIAL ANALYSIS ADVISOR Work Phone: [facility] 08-08-2023 14:39-0400 Heart rate 78 /min Twyla Mason SUPERVISOR IRRIGATION.FINANCIAL ANALYSIS ADVISOR Work Phone: [facility] 08-08-2023 14:39-0400 Systolic blood pressure 136 mm[Hg] Twyla Mason SUPERVISOR IRRIGATION.FINANCIAL ANALYSIS ADVISOR Work Phone: [facility] 07-10-2023 14:22-0400 Body mass index (BMI) [Ratio] 21.79 kg/m2 Jimbo Swanson SUPERVISOR IRRIGATION.INDUSTRIAL CHEMISTRY TEACHER Work Phone: [facility] 07-10-2023 14:22-0400 Body weight 55.79 kg Jimbo Swanson SUPERVISOR IRRIGATION.INDUSTRIAL CHEMISTRY TEACHER Work Phone: [facility] 07-10-2023 14:22-0400 Diastolic blood pressure 66 mm[Hg] Jimbo Swanson SUPERVISOR IRRIGATION.INDUSTRIAL CHEMISTRY TEACHER Work Phone: [facility] 07-10-2023 14:22-0400 Heart rate 94 /min Jimbo Swanson SUPERVISOR IRRIGATION.INDUSTRIAL CHEMISTRY TEACHER Work Phone: [facility] 07-10-2023 14:22-0400 Respiratory rate 16 /min Jimbo Swanson SUPERVISOR IRRIGATION.INDUSTRIAL CHEMISTRY TEACHER Work Phone: [facility] 07-10-2023 14:22-0400 Systolic blood pressure 119 mm[Hg] Jimbo Swanson SUPERVISOR IRRIGATION.INDUSTRIAL CHEMISTRY TEACHER Work Phone: [facility] 06-05-2023 14:44-0400 Body mass index (BMI) [Ratio] 21.91 kg/m2 Claudine Durán MD Work Phone: [facility] 06-05-2023 14:44-0400 Body temperature 98.2 [degF] Claudine Durán MD Work Phone: [facility] 06-05-2023 14:44-0400 Body weight 56.11 kg Claduine Durán MD Work Phone: [facility] 06-05-2023 14:44-0400 Diastolic blood pressure 74 mm[Hg] Claudine Durán MD Work Phone: [facility] 06-05-2023 14:44-0400 Heart rate 93 /min Claudine Durán MD Work Phone: [facility] 06-05-2023 14:44-0400 Respiratory rate 18 /min Claudine Durán MD Work Phone: [facility] 06-05-2023 14:44-0400 SaO2% (BldA) [Mass fraction] 96 % Claudine Durán MD Work Phone: [facility] 06-05-2023 14:44-0400 Systolic blood pressure 122 mm[Hg] Claudine Durán MD Work Phone: [facility] 04-30-2023 12:45-0400 Body temperature 97.6 [degF] Dr. Claudine Durán Work Phone: [facility] 04-30-2023 12:45-0400 Diastolic blood pressure 61 mm[Hg] Dr. Claudine Durán Work Phone: [facility] 04-30-2023 12:45-0400 Heart rate 97 /min Dr. Claudine Durán Work Phone: [facility] 04-30-2023 12:45-0400 Respiratory rate 16 /min Dr. Claudine Durán Work Phone: 1(935)045-786607 [place] [address] 04-30-2023 12:45-0400 SaO2% (BldA) [Mass fraction] 95 % Dr. Claudine Durán Work Phone: 5(379)063-648392 [place] [address] 04-30-2023 12:45-0400 Systolic blood pressure 102 mm[Hg] Dr. Claudine Durán Work Phone: 3(737)[phone] [place] [address] 04-25-2023 12:25-0500 Body height 160.[address] Claudine Durán Work Phone: 8(399)688-408092 [place] [address] 04-25-2023 12:25-0500 Body weight 54.[address] Claudine Durán Work Phone: 3(474)337-714792 [place] [address] 04-24-2023 12:11-0500 Body mass index (BMI) [Ratio] 21.2 kg/m2 Dr. Claudine Durán Work Phone: 0(995)758-848592 [place] [address] 04-16-2023 07:18-0500 Heart rate 94 /min Dr. Claudine Durán Work Phone: 1(171)379-371692 [place] [address] 04-16-2023 07:18-0500 Respiratory rate 18 /min Dr. Claudine Durán Work Phone: 8(875)713-364092 [place] [address] 04-16-2023 07:18-0500 SaO2% (BldA) [Mass fraction] 98 % Dr. Claudine Durán Work Phone: 3(871)223-359392 [place] [address] 04-15-2023 14:36-0500 Body temperature 98.5 [degF] Dr. Claudine Durán Work Phone: 3(640)400-968192 [place] [address] 04-15-2023 14:36-0500 Diastolic blood pressure 61 mm[Hg] Dr. Claudine Durán Work Phone: 1(495)598-036592 [place] [address] 04-15-2023 14:36-0500 Systolic blood pressure 106 mm[Hg] Dr. Claudine Durán Work Phone: 0(015)933-943192 [place] [address] 04-11-2023 15:11-0500 Body height 160.[address] Claudine Durán Work Phone: 7(537)820-455507 [place] [address] 04-11-2023 15:11-0500 Body weight 58.[address] Claudine Durán Work Phone: 9(521)462-180592 [place] [address] 04-10-2023 14:06-0500 Body mass index (BMI) [Ratio] 22.9 kg/m2 Dr. Claudine Durán Work Phone: 0(783)424-315392 [place] [address] 04-05-2023 08:40-0500 Body temperature 98.1 [degF] Dr. Claudine Durán Work Phone: 8(570)881-224792 [place] [address] 04-05-2023 08:40-0500 Diastolic blood pressure 65 mm[Hg] Dr. Claudine Durán Work Phone: 3(694)387-735592 [place] [address] 04-05-2023 08:40-0500 Heart rate 98 /min Dr. Claudine Durán Work Phone: 8(518)535-678792 [place] [address] 04-05-2023 08:40-0500 Respiratory rate 16 /min Dr. Claudine Durán Work Phone: 3(976)726-013492 [place] [address] 04-05-2023 08:40-0500 SaO2% (BldA) [Mass fraction] 96 % Dr. Claudine Durán Work Phone: 3(447)712-794192 [place] [address] 04-05-2023 08:40-0500 Systolic blood pressure 117 mm[Hg] Dr. Claudine Durán Work Phone: 6(180)518-912292 [place] [address] 04-05-2023 01:48-0500 Body mass index (BMI) [Ratio] 21.5 kg/m2 Dr. Claudine Durán Work Phone: 2(498)041-267492 [place] [address] 04-05-2023 01:48-0500 Body weight 55.[address] Claudine Durán Work Phone: 4(077)593-946092 [place] [address] 04-04-2023 13:52-0500 Body height 160.[address] Claudine Durán Work Phone: 8(450)402-615692 [place] [address] 03-31-2023 20:00-0500 Diastolic blood pressure 50 mm[Hg] Dr. Claudine Durán Work Phone: 1(594)819-559592 [place] [address] 03-31-2023 20:00-0500 Heart rate 77 /min Dr. Claudine Durán Work Phone: 3(571)675-123492 [place] [address] 03-31-2023 20:00-0500 Respiratory rate 17 /min Dr. Claudine Durán Work Phone: 4(388)241-191592 [place] [address] 03-31-2023 20:00-0500 SaO2% (BldA) [Mass fraction] 98 % Dr. Claudine Durán Work Phone: 6(702)944-030492 [place] [address] 03-31-2023 20:00-0500 Systolic blood pressure 108 mm[Hg] Dr. Claudine Durán Work Phone: 5(373)328-840592 [place] [address] 03-31-2023 16:48-0500 Body height 160.[address] Claudine Durán Work Phone: 7(587)497-615292 [place] [address] 03-31-2023 16:48-0500 Body mass index (BMI) [Ratio] 23.4 kg/m2 Dr. Claudine Durán Work Phone: 6(631)822-872892 [place] [address] 03-31-2023 16:48-0500 Body temperature 98.3 [degF] Dr. Claudine Durán Work Phone: 4(947)816-653192 [place] [address] 03-31-2023 16:48-0500 Body weight 60.[address] Claudine Durán Work Phone: 4(832)071-155692 [place] [address] 03-28-2023 20:54-0500 Diastolic blood pressure 79 mm[Hg] Dr. Claudine Durán Work Phone: 5(488)662-312792 [place] [address] 03-28-2023 20:54-0500 Heart rate 91 /min Dr. Claudine Durán Work Phone: 0(015)023-236992 [place] [address] 03-28-2023 20:54-0500 Respiratory rate 19 /min Dr. Claudine Durán Work Phone: 5(085)698-773892 [place] [address] 03-28-2023 20:54-0500 SaO2% (BldA) [Mass fraction] 97 % Dr. Claudine Durán Work Phone: 1(451)809-214892 [place] [address] 03-28-2023 20:54-0500 Systolic blood pressure 121 mm[Hg] Dr. Claudine Durán Work Phone: 0(802)344-304392 [place] [address] 03-28-2023 16:33-0500 Body height 160.[address] Claudine Durán Work Phone: 8(900)505-028892 [place] [address] 03-28-2023 16:33-0500 Body mass index (BMI) [Ratio] 23.7 kg/m2 Dr. Claudine Durán Work Phone: 8(417)602-693492 [place] [address] 03-28-2023 16:33-0500 Body temperature 97.3 [degF] Dr. Claudine Durán Work Phone: 7(275)330-995292 [place] [address] 03-28-2023 16:33-0500 Body weight 60.[address] Claudine Durán Work Phone: 1(752)178-527092 [place] [address] 03-27-2023 13:43-0500 Heart rate 101 /min Dr. Claudine Durán Work Phone: 3(742)850-608992 [place] [address] 03-27-2023 13:43-0500 Respiratory rate 19 /min Dr. Claudine Durán Work Phone: 0(994)708-987292 [place] [address] 03-27-2023 10:00-0500 Body temperature 98.2 [degF] Dr. Claudine Durán Work Phone: 8(525)406-708092 [place] [address] 03-27-2023 10:00-0500 Diastolic blood pressure 63 mm[Hg] Dr. Claudine Durán Work Phone: 0(183)775-567592 [place] [address] 03-27-2023 10:00-0500 SaO2% (BldA) [Mass fraction] 94 % Dr. Claudine Durán Work Phone: 6(184)062-141392 [place] [address] 03-27-2023 10:00-0500 Systolic blood pressure 105 mm[Hg] Dr. Claudine Durán Work Phone: 3(762)349-564092 [place] [address] 03-27-2023 05:41-0500 Body mass index (BMI) [Ratio] 22.6 kg/m2 Dr. Claudine Durán Work Phone: [facility] 03-27-2023 05:41-0500 Body weight 58.[address] Claudine Durán Work Phone: [facility] 03-26-2023 15:00-0500 Diastolic blood pressure 75 mm[Hg] [facility] 03-26-2023 15:00-0500 Heart rate 87 /min [facility] 03-26-2023 15:00-0500 Respiratory rate 19 /min [facility] 03-26-2023 15:00-0500 SaO2% (BldA) [Mass fraction] 95 % [facility] 03-26-2023 15:00-0500 Systolic blood pressure 128 mm[Hg] [facility] 03-26-2023 10:48-0500 Body height 165.1 cm [facility] 03-26-2023 10:48-0500 Body mass index (BMI) [Ratio] 23.3 kg/m2 [facility] 03-26-2023 10:48-0500 Body temperature 97.3 [degF] [facility] 03-26-2023 10:48-0500 Body weight 63.5 kg [facility] 03-19-2023 16:51-0500 Diastolic blood pressure 65 mm[Hg] [facility] 03-19-2023 16:51-0500 Systolic blood pressure 117 mm[Hg] [facility] 03-19-2023 10:07-0500 Body height 165.1 cm [facility] 03-19-2023 10:07-0500 Body mass index (BMI) [Ratio] 20.3 kg/m2 [facility] 03-19-2023 10:07-0500 Body temperature 98.3 [degF] [facility] 03-19-2023 10:07-0500 Body weight 55.48 kg [facility] 03-19-2023 10:07-0500 Heart rate 111 /min [facility] 03-19-2023 10:07-0500 Respiratory rate 16 /min [facility] 03-19-2023 10:07-0500 SaO2% (BldA) [Mass fraction] 100 % [facility] 02-07-2023 10:36-0500 Body temperature 98.6 [degF] Adri Callow SUPERVISOR IRRIGATION.FINANCIAL ANALYSIS ADVISOR Work Phone: [facility] 02-07-2023 10:36-0500 Body weight 59.69 kg Adri Callow SUPERVISOR IRRIGATION.FINANCIAL ANALYSIS ADVISOR Work Phone: [facility] 02-07-2023 10:36-0500 Diastolic blood pressure 82 mm[Hg] Adri Callow SUPERVISOR IRRIGATION.FINANCIAL ANALYSIS ADVISOR Work Phone: [facility] 02-07-2023 10:36-0500 Heart rate 87 /min Adri Callow SUPERVISOR IRRIGATION.FINANCIAL ANALYSIS ADVISOR Work Phone: [facility] 02-07-2023 10:36-0500 Respiratory rate 18 /min Adri Callow SUPERVISOR IRRIGATION.FINANCIAL ANALYSIS ADVISOR Work Phone: [facility] 02-07-2023 10:36-0500 SaO2% (BldA) [Mass fraction] 98 % Adri Callow SUPERVISOR IRRIGATION.FINANCIAL ANALYSIS ADVISOR Work Phone: [facility] 02-07-2023 10:36-0500 Systolic blood pressure 134 mm[Hg] Adri Callow SUPERVISOR IRRIGATION.FINANCIAL ANALYSIS ADVISOR Work Phone: [facility] 01-04-2023 10:33-0500 Body weight 58.06 kg Jimbo Swanson SUPERVISOR IRRIGATION.INDUSTRIAL CHEMISTRY TEACHER Work Phone: [facility] 01-04-2023 10:33-0500 Diastolic blood pressure 75 mm[Hg] Jimbo Swanson SUPERVISOR IRRIGATION.INDUSTRIAL CHEMISTRY TEACHER Work Phone: [facility] 01-04-2023 10:33-0500 Heart rate 77 /min Jimbo Swanson SUPERVISOR IRRIGATION.INDUSTRIAL CHEMISTRY TEACHER Work Phone: [facility] 01-04-2023 10:33-0500 Respiratory rate 16 /min Jimbo Swanson SUPERVISOR IRRIGATION.INDUSTRIAL CHEMISTRY TEACHER Work Phone: [facility] 01-04-2023 10:33-0500 Systolic blood pressure 128 mm[Hg] Jimbo Swanson SUPERVISOR IRRIGATION.INDUSTRIAL CHEMISTRY TEACHER Work Phone: [facility] 10-27-2022 09:03-0400 Body weight 59.42 kg Jimbobetina Sans SUPERVISOR IRRIGATION.INDUSTRIAL CHEMISTRY TEACHER Work Phone: [facility] 10-27-2022 09:03-0400 Diastolic blood pressure 66 mm[Hg] Jimbo Swanson SUPERVISOR IRRIGATION.INDUSTRIAL CHEMISTRY TEACHER Work Phone: [facility] 10-27-2022 09:03-0400 Heart rate 76 /min Jimbo Swanson SUPERVISOR IRRIGATION.INDUSTRIAL CHEMISTRY TEACHER Work Phone: [facility] 10-27-2022 09:03-0400 Respiratory rate 16 /min Jimbo Swanson SUPERVISOR IRRIGATION.INDUSTRIAL CHEMISTRY TEACHER Work Phone: [facility] 10-27-2022 09:03-0400 Systolic blood pressure 119 mm[Hg] Jimbo Swanson SUPERVISOR IRRIGATION.INDUSTRIAL CHEMISTRY TEACHER Work Phone: [facility] 08-29-2022 09:26-0400 Body height 162.6 cm Rachelle Schulte APRN.FINANCIAL ANALYSIS ADVISOR Work Phone: [facility] 08-29-2022 09:26-0400 Body weight 58.51 kg Rachelle Schulte APRN.FINANCIAL ANALYSIS ADVISOR Work Phone: [facility] 08-29-2022 09:26-0400 Diastolic blood pressure 78 mm[Hg] Rachelle Schulte APRN.FINANCIAL ANALYSIS ADVISOR Work Phone: [facility] 08-29-2022 09:26-0400 Heart rate 75 /min Rachelle Schulte APRN.FINANCIAL ANALYSIS ADVISOR Work Phone: [facility] 08-29-2022 09:26-0400 SaO2% (BldA) [Mass fraction] 98 % Rachelle Schulte APRN.FINANCIAL ANALYSIS ADVISOR Work Phone: [facility] 08-29-2022 09:26-0400 Systolic blood pressure 142 mm[Hg] Rachelle Schulte APRN.FINANCIAL ANALYSIS ADVISOR Work Phone: [facility] 07-20-2022 09:28-0400 Body weight 58.06 kg Florence Collins MD Work Phone: [facility] 07-20-2022 09:28-0400 Diastolic blood pressure 72 mm[Hg] Florence Collins MD Work Phone: [facility] 07-20-2022 09:28-0400 Heart rate 50 /min Florence Collins MD Work Phone: [facility] 07-20-2022 09:28-0400 Respiratory rate 17 /min Florence Collins MD Work Phone: [facility] 07-20-2022 09:28-0400 SaO2% (BldA) [Mass fraction] 100 % Florence Collins MD Work Phone: [facility] 07-20-2022 09:28-0400 Systolic blood pressure 122 mm[Hg] Florence Collins MD Work Phone: [facility] 03-13-2022 10:13-0500 Body temperature 96.69 [degF] Claudine Durán MD Work Phone: [facility] 03-13-2022 10:13-0500 Body weight 59.56 kg Claudine Durán MD Work Phone: [facility] 03-13-2022 10:13-0500 Diastolic blood pressure 68 mm[Hg] Claudine Durán MD Work Phone: [facility] 03-13-2022 10:13-0500 Heart rate 75 /min Claudine Durán MD Work Phone: [facility] 03-13-2022 10:13-0500 Respiratory rate 18 /min Claudine Durán MD Work Phone: [facility] 03-13-2022 10:13-0500 SaO2% (BldA) [Mass fraction] 100 % Claudine Durán MD Work Phone: [facility] 03-13-2022 10:13-0500 Systolic blood pressure 112 mm[Hg] Claudine Durán MD Work Phone: [facility] 11-29-2021 10:07-0400 Body weight 58.51 kg Florence Collins MD Work Phone: [facility] 11-29-2021 10:07-0400 Diastolic blood pressure 76 mm[Hg] Florence Collins MD Work Phone: [facility] 11-29-2021 10:07-0400 Heart rate 92 /min Florence Collins MD Work Phone: [facility] 11-29-2021 10:07-0400 Respiratory rate 18 /min Florence Collins MD Work Phone: [facility] 11-29-2021 10:07-0400 SaO2% (BldA) [Mass fraction] 97 % Florence Collins MD Work Phone: [facility] 11-29-2021 10:07-0400 Systolic blood pressure 122 mm[Hg] Florence Collins MD Work Phone: [facility] 11-10-2021 09:22-0400 Body weight 60.33 kg Jimbo Swanson SUPERVISOR IRRIGATION.INDUSTRIAL CHEMISTRY TEACHER Work Phone: [facility] 11-10-2021 09:22-0400 Diastolic blood pressure 80 mm[Hg] Jimbo Swanson SUPERVISOR IRRIGATION.INDUSTRIAL CHEMISTRY TEACHER Work Phone: [facility] 11-10-2021 09:22-0400 Heart rate 76 /min Jimbo Swanson SUPERVISOR IRRIGATION.INDUSTRIAL CHEMISTRY TEACHER Work Phone: [facility] 11-10-2021 09:22-0400 Respiratory rate 16 /min Jimbo Swanson SUPERVISOR IRRIGATION.INDUSTRIAL CHEMISTRY TEACHER Work Phone: [facility] 11-10-2021 09:22-0400 Systolic blood pressure 152 mm[Hg] Jimbo Swanson SUPERVISOR IRRIGATION.INDUSTRIAL CHEMISTRY TEACHER Work Phone: [facility] 09-20-2021 13:45-0400 Body weight 58.51 kg Jimbo Swanson SUPERVISOR IRRIGATION.INDUSTRIAL CHEMISTRY TEACHER Work Phone: [facility] 09-20-2021 13:45-0400 Diastolic blood pressure 64 mm[Hg] Jimbo Swanson SUPERVISOR IRRIGATION.INDUSTRIAL CHEMISTRY TEACHER Work Phone: [facility] 09-20-2021 13:45-0400 Heart rate 85 /min Jimbo Swanson SUPERVISOR IRRIGATION.INDUSTRIAL CHEMISTRY TEACHER Work Phone: [facility] 09-20-2021 13:45-0400 SaO2% (BldA) [Mass fraction] 96 % Jimbo Swanson SUPERVISOR IRRIGATION.INDUSTRIAL CHEMISTRY TEACHER Work Phone: [facility] 09-20-2021 13:45-0400 Systolic blood pressure 128 mm[Hg] Jimbo Swanson SUPERVISOR IRRIGATION.INDUSTRIAL CHEMISTRY TEACHER Work Phone: [facility] 08-12-2021 11:01-0400 Body height 162.6 cm William Messina DO Work Phone: [facility] 08-12-2021 11:01-0400 Body weight 59.42 kg William Messina DO Work Phone: [facility] 08-12-2021 11:01-0400 Diastolic blood pressure 74 mm[Hg] William Messina DO Work Phone: [facility] 08-12-2021 11:01-0400 Heart rate 72 /min William Messina DO Work Phone: [facility] 08-12-2021 11:01-0400 SaO2% (BldA) [Mass fraction] 99 % William Messina DO Work Phone: [facility] 08-12-2021 11:01-0400 Systolic blood pressure 130 mm[Hg] Williamradhika Messina DO Work Phone: [facility] 07-11-2021 08:10-0400 Body weight 58.06 kg Claudine Durán MD Work Phone: [facility] 07-11-2021 08:10-0400 Diastolic blood pressure 74 mm[Hg] Claudine Durán MD Work Phone: [facility] 07-11-2021 08:10-0400 Heart rate 76 /min Claudine Durán MD Work Phone: [facility] 07-11-2021 08:10-0400 Systolic blood pressure 122 mm[Hg] Claudine Durán MD Work Phone: [facility] 2021 14:57-0400 Body height 162.6 cm Mirian Andujar MD Work Phone: [facility] 2021 14:57-0400 Body weight 58.33 kg Mirian Andujar MD Work Phone: [facility] 2021 14:57-0400 Diastolic blood pressure 67 mm[Hg] Mirian Andujar MD Work Phone: [facility] 2021 14:57-0400 Heart rate 98 /min Mirian Andujar MD Work Phone: [facility] 2021 14:57-0400 Respiratory rate 14 /min Mirian Andujar MD Work Phone: [facility] 2021 14:57-0400 SaO2% (BldA) [Mass fraction] 99 % Mirian Andujar MD Work Phone: [facility] 2021 14:57-0400 Systolic blood pressure 144 mm[Hg] Mirian Andujar MD Work Phone: [facility] 03-14-2021 08:08-0500 Body height 162.6 cm Claudine Durán MD Work Phone: [facility] 03-14-2021 08:08-0500 Body temperature 97.5 [degF] Claudine Durán MD Work Phone: [facility] 03-14-2021 08:08-0500 Body weight 58.06 kg Claudine Durán MD Work Phone: [facility] 03-14-2021 08:08-0500 Diastolic blood pressure 62 mm[Hg] Claudine Durán MD Work Phone: [facility] 03-14-2021 08:08-0500 Heart rate 87 /min Claudine Durán MD Work Phone: [facility] 03-14-2021 08:08-0500 Respiratory rate 14 /min Claudine Durán MD Work Phone: [facility] 03-14-2021 08:08-0500 SaO2% (BldA) [Mass fraction] 99 % Claudine Durán MD Work Phone: [facility] 03-14-2021 08:08-0500 Systolic blood pressure 118 mm[Hg] Claudine Durán MD Work Phone: [facility] Encounters Encounter Date Encounter Type Care Provider Facility Start: 08-21-2024 End: 08-21-2024 Anticoagulant drug monitoring [facility] Work Phone: [facility] Comment on above: Personal history of DVT (deep vein thrombosis) (Primary Dx) Start: 08-20-2024 ambulatory ZITA MOSS [facility] Start: 08-18-2024 End: 08-18-[address] Claudine Durán MD Work Phone: -[facility]iac Rehab Comment on above: Refill Request Start: 08-18-2024 End: 08-18-[address] Claudine Durán MD Work Phone: -[facility]iac Rehab Work Phone: Start: 08-06-2024 End: 08-06-2024 Anticoagulant drug monitoring [facility] Work Phone: [facility] Comment on above: Personal history of DVT (deep vein thrombosis) (Primary Dx) Start: 08-06-2024 End: 08-06-2024 ambulatory CLAUDINE DURÁN Facility:[facility] Start: 07-29-2024 End: 07-29-2024 ambulatory Jane Rick RN Work Phone: Quantity Surveyor Management Start: 07-29-2024 End: 07-29-2024 Coordination of care plan Jane Rick RN Work Phone: Quantity Surveyor Management Comment on above: Care Coordination (C gaston review and outreach for CHF GDMT Care Path/) Start: 07-23-2024 End: 07-23-2024 ambulatory Brisas Chester APRN.SANTY Work Phone: Cardiology Comment on above: ECHO and LAB RESULTS Start: 07-23-2024 End: 07-23-2024 E-mail encounter from caregiver Brissa Chester APRN.SANTY Work Phone: Cardiology Start: 07-22-2024 End: 07-22-2024 ambulatory CLAUDINE DURÁN Facility:[facility] Start: 07-22-2024 End: 07-22-2024 Patient encounter procedure Brissa Chester APRN.SANTY Work Phone: Cardiology Comment on above: S/P TAVR (transcathe ter aortic valve replacement) (Primary Dx); Nonrheumatic aortic valve stenosis; Nonrheumatic mitral valve stenosis; Nonrheumatic tricuspid valve regurgitation; Essential hypertension; Disseminated histoplasmosis; History of recurrent deep vein thrombosis (DVT); History of GI bleed; History of COPD Start: 07-22-2024 End: 07-22-2024 ambulatory CLAUDINE DURÁN Facility:[facility] Start: 07-21-2024 End: 07-21-2024 Anticoagulant drug monitoring [facility] Work Phone: [facility] Comment on above: Personal history of DVT (deep vein thrombosis) (Primary Dx) Start: 07-21-2024 End: 07-21-2024 ambulatory CLAUDINE DURÁN Facility:[facility] Start: 07-18-2024 End: 07-19-[address] Claudine Durán MD Work Phone: [facility] Work Phone: Start: 07-18-2024 End: 07-19-[address] Claudine Durán MD Work Phone: -Cardiac Rehab Work Phone: Start: 07-08-2024 End: 07-08-2024 ambulatory NYASIA WICK Facility:[facility] Start: 07-07-2024 End: 07-08-2024 Anticoagulant drug monitoring [facility] Work Phone: [facility] Comment on above: Personal history of DVT (deep vein thrombosis) (Primary Dx) Refill Request Start: 07-07-2024 End: 07-07-2024 ambulatory CLAUDINE DURÁN Facility:[facility] Start: 07-02-2024 End: 07-02-2024 Refill Jimbo Jv MCCORMICK Work Phone: [facility] [place] Comment on above: Refill Request Start: 06-25-2024 End: 06-25-2024 ambulatory Pili Benitez RN Quantity Surveyor Management Comment on above: Bi-Weekly Outreach ( Recurring) for Chronic Disease Management Start: 06-21-2024 End: 06-21-2024 Refill Claudine Durán MD Work Phone: [facility] [place] Comment on above: Refill Request Start: 06-20-2024 End: 06-20-[address] Diza Puckett MD -[facility] Work Phone: Start: 06-20-2024 End: 06-23-2024 Refill Florence Collins MD Work Phone: Pulmonary Medicine Comment on above: Refill Request Start: 06-18-2024 End: 06-18-2024 ambulatory Claudine Durán Facility:[facility] Start: 06-18-2024 End: 06-18-[address] Claudine Durán MD Work Phone: -Cardiac Rehab Work Phone: Start: 06-16-2024 End: 06-16-2024 ambulatory GENO HART Facility:[facility] Start: 06-11-2024 End: 06-11-2024 ambulatory CLAUDINE DURÁN Facility:[facility] Start: [address] Claudine Durán MD Work Phone: -Cardiac Rehab Work Phone: Start: 05-28-2024 End: 05-28-[address] Claudine Durán MD Work Phone: [facility] Work Phone: Start: 05-28-2024 End: 05-28-[address] Claudine Durán MD Work Phone: -Cardiac Rehab Work Phone: Start: 05-28-2024 End: 05-28-2024 ambulatory Claudine uDrán Facility:[facility] Start: 05-26-2024 End: 05-26-2024 Patient Outreach Pili Benitez RN Quantity Surveyor Management Comment on above: Transition Of Care W eekly phone contact (Recurring) for Transitional Care Management Start: 05-21-2024 End: 05-22-2024 Telephone encounter Jimbo Swanson APRN.INDUSTRIAL CHEMISTRY TEACHER Work Phone: [facility] Comment on above: Consult Start: 05-20-2024 End: 05-20-2024 Patient encounter procedure Jimbo Swanson APRN.INDUSTRIAL CHEMISTRY TEACHER Work Phone: [facility] [place] Comment on above: Medicare annual well ness visit, subsequent (Primary Dx); Cough due to bronchospasm; 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 rheumatoid factor (HCC); Low back pain with right-sided sciatica, unspecified back pain laterality, unspecified chronicity; Chronic heart failure with preserved ejection fraction (HFpEF) (HCC); Nonrheumatic aortic valve stenosis; S/P TAVR (transcatheter aortic valve replacement) Start: 05-20-2024 End: 05-20-2024 ambulatory JIMBO SWANSON Facility:[facility] Start: 05-20-2024 End: 05-20-2024 Anticoagulant drug monitoring [facility] Work Phone: [facility] Comment on above: Personal history of DVT (deep vein thrombosis) (Primary Dx) Start: 05-19-2024 End: 05-19-2024 Patient Outreach Pili Benitez RN Quantity Surveyor Management Comment on above: Transition Of Care W eekly phone contact (Recurring) for Transitional Care Management, Started Bi-Weekly Outreach (Recurring) for Chronic Disease Management Start: 05-12-2024 End: 05-12-2024 Patient Outreach Pili Benitez RN Quantity Surveyor Management Comment on above: Transition Of Care W eula phone contact (Recurring) for Transitional Care Management Start: 05-09-2024 End: 05-12-2024 Follow-up encounter Jimbo Swanson INDUSTRIAL CHEMISTRY TEACHER Work Phone: [facility] Comment on above: Anticoagulation Start: 05-09-2024 End: 05-09-2024 ambulatory JIMBO SWANSON Facility:[facility] Start: 05-05-2024 End: 05-05-2024 Patient Outreach Pili Benitez RN Quantity Surveyor Management Comment on above: Transition Of Care I nitial phone contact for Transitional Care Management Nonrheumatic aortic valve stenosis (Primary Dx); S/P TAVR (transcatheter aortic valve replacement); Chronic diastolic heart failure (HCC) Start: 05-02-2024 End: 05-02-2024 Orders Only Juvencio Saeed MD Work Phone: Cardiology Comment on above: Nonrheumatic aortic valve stenosis (Primary Dx) Start: 05-02-2024 End: 05-03-2024 Evaluation and management of inpatient JUVENCIO SAEED Facility:[facility] Start: 05-01-2024 End: 05-01-2024 ambulatory CLAUDINE DURÁN Facility:[facility] Start: 05-01-2024 End: 05-01-2024 Anticoagulant drug monitoring [facility] Work Phone: [facility] [place] Comment on above: Personal history of DVT (deep vein thrombosis) (Primary Dx) Start: 04-30-2024 End: 04-30-2024 Admission to same day surgery center Anesthesia Clearance Work Phone: [facility] Work Phone: Start: 04-30-2024 End: 04-30-2024 ambulatory LEANDRA VENEGAS Facility:[facility] Start: 04-30-2024 End: 04-30-2024 Patient encounter procedure Anesthesia Clearance Work Phone: Cardiothoracic Comment on above: Encounter for preope rative anesthesiology assessment for cardiac surgery (Primary Dx) Nonrheumatic aortic valve stenosis (Primary Dx) Start: 04-30-2024 End: 04-30-2024 Subsequent hospital visit by physician Xr Chest Main J1 Work Phone: Radiology Comment on above: Nonrheumatic aortic valve stenosis [I35.0] Start: 04-30-2024 End: 04-30-2024 [facility] Start: 04-21-2024 End: 04-21-2024 ambulatory [facility] Facility:[facility] Start: 04-21-2024 End: 04-21-2024 Patient encounter procedure Geno Hart MD Work Phone: [facility] [place] Department of Infectious Disease Comment on above: Disseminated histopl asmosis (Primary Dx); Bronchiectasis without complication (HCC); COPD without exacerbation (HCC); Rheumatoid arthritis with positive rheumatoid factor, involving unspecified site (HCC); History of immunosuppressive therapy; History of penicillin allergy; Encounter for long-term (current) use of antibiotics; Counseling, unspecified Start: 04-16-2024 End: 04-16-2024 ambulatory Leandra Venegas SUPERVISOR IRRIGATION.INDUSTRIAL CHEMISTRY TEACHER Work Phone: Cardiology Comment on above: Structural Dental Cl earance Start: 04-15-2024 End: 04-15-2024 ambulatory Leandra Venegas APRN.INDUSTRIAL CHEMISTRY TEACHER Work Phone: Cardiology Start: 04-15-2024 End: 04-15-2024 Telephone encounter Leandra Venegas APRN.INDUSTRIAL CHEMISTRY TEACHER Work Phone: Cardiology Comment on above: Appointment [facility] Start: 04-14-2024 End: 04-14-2024 ambulatory Pili Benitez RN Quantity Surveyor Management Comment on above: Initial enrollment [facility] Start: 04-05-2024 End: 04-05-2024 ambulatory Juvencio Saeed MD Work Phone: Cardiology Start: 04-03-2024 End: 04-03-2024 ambulatory CLAUDINE DURÁN Facility:[facility] Start: 04-03-2024 End: 04-03-2024 Anticoagulant drug monitoring [facility] Work Phone: [facility] [place] Comment on above: Personal history of DVT (deep vein thrombosis) (Primary Dx) Start: 04-02-2024 End: 04-03-2024 Telephone encounter Bartolome Francis MD Work Phone: Cardiothoracic Comment on above: Referral Information (Surgical Consult with Dr. Francis) Start: 04-01-2024 End: 04-02-2024 Telephone encounter Bartolome Francis MD Work Phone: Cardiothoracic Comment on above: Insurance Authorizat ion Start: 03-31-2024 End: 03-31-2024 ambulatory Yuparish Torres MA Help [employer]ies Comment on above: TAVR Meeting Start: 03-31-2024 End: 03-31-2024 E-mail encounter from caregiver Yuparish Torers MA [employer] Start: 03-31-2024 End: 03-31-2024 Patient encounter procedure Yudeshawn Torres SANDY [employer] Comment on above: [facility] Na [facility] Outreach ([employer] High Risk - Attempt 3) Start: 03-26-2024 End: 03-26-2024 ambulatory Yu Torres MA [employer] Start: 03-26-2024 End: 03-26-2024 Patient encounter procedure Yu Torres MA [employer] Comment on above: Population Health Na vigation Outreach ([employer] High Risk - Attempt 2) Start: 03-25-2024 End: 03-25-2024 Subsequent hospital visit by physician Spectct3 Work Phone: Molecular Imaging Comment on above: Nonrheumatic aortic valve stenosis [I35.0] Start: 03-25-2024 End: 03-25-2024 Patient encounter procedure Pulm Fct Lab J-1 Pulmonary Medicine Comment on above: Nonrheumatic aortic valve stenosis (Primary Dx) Start: 03-25-2024 End: 03-25-2024 ambulatory CLAUDINE DURÁN Pulmonary Medicine Comment on above: Spirometry Start: 03-25-2024 End: 03-25-2024 Subsequent hospital visit by physician Nucinj Molecular Imaging Start: 03-24-2024 End: 03-25-2024 ambulatory CLAUDINE DURÁN Facility:[facility] Start: 03-23-2024 End: 03-23-2024 Telephone encounter Michael Beavers MD Work Phone: Cardiology Comment on above: Patient Education Start: 03-21-2024 Encounter for preprocedural cardiovascular examination CLAUDINE DURÁN [facility] Start: 03-21-2024 End: 03-21-2024 Subsequent hospital visit by physician Xr Chest Main J1 Work Phone: Radiology Comment on above: Nonrheumatic aortic valve stenosis [I35.0] Start: 03-21-2024 End: 03-21-2024 ambulatory Yu Torres MA [facility] Start: 03-21-2024 End: 03-21-2024 Patient encounter procedure Juvencio Saeed MD Work Phone: Cardiology Comment on above: Nonrheumatic aortic valve stenosis (Primary Dx); Encounter to establish care; Pre-operative cardiovascular examination; Mitral stenosis with insufficiency, rheumatic; Rheumatoid arthritis with positive rheumatoid factor, involving unspecified site (HCC) Population Health Na vigation Outreach ([employer] High Risk - Attempt 1) Start: 03-21-2024 End: 03-21-2024 Patient encounter status Juvencio Saeed MD Work Phone: [facility] Start: 02-29-2024 End: 02-29-2024 Office outpatient visit 15 minutes Claudine Durán MD Work Phone: Internal Medicine [place] Comment on above: Chronic heart failur e with preserved ejection fraction (HFpEF) (HCC) (Primary Dx); Rheumatoid arthritis with positive rheumatoid factor, involving unspecified site (HCC); COPD without exacerbation (HCC); Bronchiectasis without complication (HCC); Nonrheumatic aortic valve stenosis; Screening for depression; Encounter for screening examination for other mental health and behavioral disorders Start: 02-29-2024 End: 02-29-2024 Anticoagulant drug monitoring [facility] Work Phone: [facility] [place] Comment on above: Personal history of DVT (deep vein thrombosis) (Primary Dx) Start: 02-29-2024 End: 02-29-2024 ambulatory CLAUDINE DURÁN Facility:[facility] Start: 02-20-2024 End: 02-21-2024 Dilshad Hart MD Work Phone: [facility] [place] Department of Infectious Disease Comment on above: Refill Request Start: 01-31-2024 End: 01-31-2024 [facility] Start: 01-31-2024 End: 01-31-2024 Anticoagulant drug monitoring [facility] Work Phone: [facility] [place] Comment on above: Personal history of DVT (deep vein thrombosis) (Primary Dx) Start: 01-29-2024 End: 01-29-2024 ambulatory Ilda Miller RN Work Phone: Quantity Surveyor Management Comment on above: Community Monitoring Outreach (2nd attempt Telephonic Outreach CDM Home Monitoring) Start: 01-21-2024 End: 01-21-2024 ambulatory Ilda Miller RN Work Phone: Quantity Surveyor Management Comment on above: Community Monitoring Outreach (Telephonic Outreach CDM Home Monitoring) Start: 01-18-2024 End: 01-18-2024 ambulatory CLAUDINE D [facility] Facility:[facility] Start: 01-10-2024 End: 01-10-2024 ambulatory [facility] Facility:[facility] Start: 01-10-2024 End: 01-10-2024 Anticoagulant drug monitoring [facility] Work Phone: [facility] [place] Comment on above: Personal history of DVT (deep vein thrombosis) (Primary Dx) Start: 01-08-2024 End: 01-08-2024 ambulatory Monica Aguila SUPERVISOR IRRIGATION.FINANCIAL ANALYSIS ADVISOR Work Phone: Cardiology Start: 01-08-2024 End: 01-08-2024 Patient encounter procedure Monica Newman-Marshall SUPERVISOR IRRIGATION.FINANCIAL ANALYSIS ADVISOR Work Phone: Cardiology Comment on above: TAVR Consult Start: 01-08-2024 End: 01-08-2024 Patient encounter status Monica Newman-Marshall SUPERVISOR IRRIGATION.FINANCIAL ANALYSIS ADVISOR Work Phone: [facility] Start: 01-04-2024 End: 01-04-2024 Telephone encounter Geno Hart MD Work Phone: [place] [facility] Comment on above: Results Start: 01-02-2024 End: 01-02-2024 Patient encounter procedure Ines Drew MD Work Phone: Cardiology Comment on above: Rheumatoid arthritis with positive rheumatoid factor, involving unspecified site (HCC) (Primary Dx); Nonrheumatic aortic valve stenosis; Nonrheumatic mitral valve stenosis; Pericardial effusion; Histoplasmosis Start: 01-02-2024 End: 01-02-2024 ambulatory CLAUDINE DURÁN Facility:[facility] Start: 12-27-2023 End: 12-27-2023 ambulatory CLAUDINE Adam [facility] Facility:[facility] Start: 12-27-2023 End: 12-27-2023 Anticoagulant drug monitoring [facility] Work Phone: [facility] [place] Comment on above: Personal history of DVT (deep vein thrombosis) (Primary Dx) Start: 12-20-2023 End: 12-20-2023 ambulatory Rosa Wallace RN Work Phone: Quantity Surveyor Management Comment on above: community monitoring outreach (engagement) Start: 12-19-2023 End: 12-20-2023 Telephone encounter Claudine Durán MD Work Phone: Internal Medicine [place] Start: 12-19-2023 End: 12-19-2023 ambulatory Rosa Wallace RN Work Phone: Quantity Surveyor Management Comment on above: community monitoring outreach (engagement) Start: 12-18-2023 End: 12-18-2023 ambulatory CLAUDINE DURÁN Facility:[facility] Start: 12-18-2023 End: 12-18-2023 Patient encounter procedure Geno Hart MD Work Phone: [facility] [place] Department of Infectious Disease Comment on above: Disseminated histopl asmosis (Primary Dx); Bronchiectasis without complication (HCC); COPD without exacerbation (HCC); Rheumatoid arthritis with positive rheumatoid factor, involving unspecified site (HCC); History of immunosuppressive therapy; History of penicillin allergy; Encounter for long-term (current) use of antibiotics; Counseling, unspecified; Disseminated histoplasmosis Start: 12-13-2023 End: 12-13-2023 ambulatory CLAUDINE DURÁN Facility:[facility] Start: 12-13-2023 End: 12-13-2023 Anticoagulant drug monitoring [facility] Work Phone: [facility] [place] Comment on above: Personal history of DVT (deep vein thrombosis) (Primary Dx) Start: 12-11-2023 End: 12-12-2023 Refill Twyla Cuevas APRN.CNP Work Phone: Internal Medicine [place] Comment on above: Refill Request Start: 12-09-2023 End: 12-11-2023 Refill Claudine Durán MD Work Phone: Internal Medicine [place] Comment on above: Refill Request Start: 11-29-2023 End: 11-29-2023 [facility]INE [facility] Start: 11-29-2023 End: 11-29-2023 Anticoagulant drug monitoring [facility] Work Phone: [facility] [place] Comment on above: Personal history of DVT (deep vein thrombosis) (Primary Dx) Start: 11-26-2023 End: 11-26-2023 Telephone encounter Geno Hart MD Work Phone: [facility] [place] Department of Infectious Disease Comment on above: Patient Question Start: 11-15-2023 End: 11-15-2023 Telephone encounter Claudine Durán MD Work Phone: [facility] [place] Comment on above: Orders (poc protime) Start: 11-15-2023 End: 11-15-2023 [facility] Start: 11-15-2023 End: 11-15-2023 Anticoagulant drug monitoring [facility] Work Phone: [facility] [place] Comment on above: Personal history of DVT (deep vein thrombosis) (Primary Dx) Start: 11-08-2023 End: 11-08-2023 ambulatory CLAUDINE DURÁN Facility:[facility] Start: 11-08-2023 End: 11-08-2023 [facility]: [facility] Comment on above: Personal history of DVT (deep vein thrombosis) (Primary Dx) Start: 11-03-2023 End: 11-06-2023 Refill Jimbo Swanson SUPERVISOR IRRIGATION.INDUSTRIAL CHEMISTRY TEACHER Work Phone: Internal Medicine [place] Comment on above: Refill Request Start: 11-02-2023 End: 11-02-2023 E-mail encounter from caregiver Bibi Sanderson Raji ROSALES.FINANCIAL ANALYSIS ADVISOR Work Phone: Cardiology Start: 11-02-2023 End: 11-02-2023 Follow-up encounter Bibi Alegria APRN.FINANCIAL ANALYSIS ADVISOR Work Phone: Cardiology Comment on above: Valve Follow Up Start: 10-30-2023 End: 10-30-2023 Telephone encounter William Messina DO Work Phone: Cardiology Comment on above: Forms Start: 10-30-2023 ambulatory Claudine D [place] [facility] y:[facility] Start: 10-25-2023 End: 10-25-2023 ambulatory CLAUDINE D TALAMPAS Facility:[facility] Start: 10-25-2023 End: 10-25-2023 Anticoagulant drug monitoring [facility] Work Phone: [facility] Comment on above: Personal history of DVT (deep vein thrombosis) (Primary Dx) Start: 10-20-2023 End: 10-25-2023 Refill Jimbo Swanson SUPERVISOR IRRIGATION.INDUSTRIAL CHEMISTRY TEACHER Work Phone: Internal Medicine [place] Comment on above: Refill Request Start: 10-19-2023 End: 10-19-2023 ambulatory CLAUDINE D TALAMPAS Facility:[facility] Start: 10-19-2023 End: 10-19-2023 [facility] Comment on above: Personal history of DVT (deep vein thrombosis) (Primary Dx) Start: 10-18-2023 End: 10-18-2023 ambulatory CLAUDINE D TALAMPAS Facility:[facility] Start: 10-18-2023 End: 10-18-2023 Patient encounter procedure Bibi Alegria APRN.FINANCIAL ANALYSIS ADVISOR Work Phone: Cardiology Comment on above: Aortic stenosis with bicuspid valve (Primary Dx); Pericardial effusion; Essential hypertension; Chronic heart failure with preserved ejection fraction (HFpEF) ([facility]); Mitral valve stenosis, non-rheumatic; Nonrheumatic tricuspid valve regurgitation Start: 10-17-2023 End: 10-17-2023 ambulatory Ilda Miller RN Work Phone: Quantity Surveyor Management Comment on above: Community Monitoring Outreach (F/U engagement CD Home Monitoring) Start: 10-11-2023 End: 10-11-2023 ambulatory CLAUDINE D TALAMPAS Facility:[facility] Start: 10-11-2023 End: 10-11-2023 Office outpatient visit 25 minutes Jimbo Swanson APRN.CNS Work Phone: Internal Medicine [place] Comment on above: Aortic valve stenosi s, etiology of cardiac valve disease unspecified (Primary Dx); Mitral valve stenosis, unspecified etiology; Pericardial effusion; Gastrointestinal hemorrhage, unspecified gastrointestinal hemorrhage type; Rheumatoid arthritis with positive rheumatoid factor, involving unspecified site ([facility]); Edema, unspecified type; Blood loss anemia Start: 10-02-2023 ambulatory Claudine D [place] Facilit y:[facility] Start: 10-02-2023 End: 10-02-2023 ambulatory Claudine D [place] Facility:[facility] Start: 09-28-2023 End: 09-28-2023 ambulatory CLAUDINE D TALAMPAS Facility:[facility] Start: 09-27-2023 End: 09-27-2023 Anticoagulant drug monitoring [facility] Work Phone: [facility] [place] Comment on above: Personal history of DVT (deep vein thrombosis) (Primary Dx) Refill Request Start: 09-27-2023 Refill Twyla Cuevas APRN.FINANCIAL ANALYSIS ADVISOR Work Phone: Internal Medicine [place] Comment on above: Med Change Request Start: 09-27-2023 End: 09-27-2023 ambulatory CLAUDINE D TALAMPAS Facility:[facility] Start: 09-21-2023 End: 09-21-2023 Anticoagulant drug monitoring [facility] Work Phone: Coumadin [facility] [place] Comment on above: Personal history of DVT (deep vein thrombosis) (Primary Dx) Start: 09-21-2023 End: 09-21-2023 ambulatory CLAUDINE D TALAMPAS Facility:[facility] Start: 09-04-2023 Telephone encounter Twyla de APRN.CNP Work Phone: Internal Medicine [place] Comment on above: Results Start: 09-03-2023 End: 09-03-2023 ambulatory [facility] Facility:[facility] Start: 09-03-2023 End: 09-03-2023 ambulatory [facility] Facility:[facility] Start: 08-31-2023 ambulatory Ilda Miller RN Work Phone: Quantity Surveyor Management Comment on above: Community Monitoring Outreach (F/U engagement CD Home Monitoring) Start: 08-30-2023 End: 08-30-2023 Anticoagulant drug monitoring [facility] Work Phone: Coumadin [facility] Comment on above: Personal history of DVT (deep vein thrombosis) (Primary Dx) Refill Request Start: 08-30-2023 End: 08-30-2023 Subsequent hospital visit by physician [facility] ([facility]) Work Phone: Cat Scan Comment on above: Disseminated histopl asmosis [B39.9] Start: 08-30-2023 End: 08-30-2023 ambulatory CLAUDINE D TALAMPAS Facility:[facility] Start: 08-28-2023 End: 08-28-2023 [facility] Start: 08-28-2023 End: 08-28-2023 Patient encounter procedure Geno Hart MD Work Phone: [facility] [place] Department of Infectious Disease Comment on above: Disseminated histopl asmosis (Primary Dx); Bronchiectasis without complication (HCC); COPD without exacerbation (HCC); Rheumatoid arthritis with positive rheumatoid factor, involving unspecified site (HCC); History of immunosuppressive therapy; History of penicillin allergy; Encounter for long-term (current) use of antibiotics; Counseling, unspecified; H/O: GI bleed Start: 08-27-2023 Telephone encounter William Brunilda Messina DO Work Phone: Cardiology Comment on above: Appointment Start: 08-27-2023 End: 08-27-2023 Patient encounter procedure William Jeff Messina DO Work Phone: Cardiology Comment on above: Nonrheumatic aortic valve stenosis (Primary Dx); Mitral valve stenosis, non-rheumatic; Essential hypertension; Pericardial effusion (noninflammatory); Leg edema; snf current use of anticoagulant therapy Start: 08-27-2023 End: 08-27-2023 ambulatory CLAUDINE DURÁN Facility:[facility] Start: 08-24-2023 Telephone encounter William Messina DO Work Phone: Cardiology Start: 08-22-2023 End: 08-22-2023 ambulatory CLAUDINE DURÁN Facility:[facility] Start: 08-22-2023 End: 08-22-2023 Office outpatient visit 25 minutes Claudine Durán MD Work Phone: Internal Medicine [place] Comment on above: Anemia, unspecified type (Primary Dx); Bilateral lower extremity edema; Chronic anticoagulation; Moderate to severe aortic stenosis; Disseminated histoplasmosis; Nodule of lower lobe of left lung; Encounter for long-term current use of medication Start: 08-22-2023 End: 08-22-2023 ambulatory CLAUDINE Adam DURÁN Facility:[facility] Start: 08-22-2023 End: 08-22-2023 Anticoagulant drug monitoring [facility] Work Phone: Coumadin [facility] [place] Comment on above: Personal history of DVT (deep vein thrombosis) (Primary Dx) Start: 08-09-2023 End: 08-09-2023 Anticoagulant drug monitoring [facility] Work Phone: Coumadin [facility] [place] Comment on above: Personal history of DVT (deep vein thrombosis) (Primary Dx) Start: 08-08-2023 End: 08-08-2023 Patient encounter procedure Twyla Cuevas APRN.CNP Work Phone: Internal Medicine [place] Comment on above: 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 rheumatoid factor (HCC) (Primary Dx); Edema, unspecified type; Encounter for therapeutic drug monitoring Start: 08-07-2023 Refill Claudine tavares MD Work Phone: Internal Medicine [place] Comment on above: Refill Request Start: 07-31-2023 Refill Claudine tavares MD Work Phone: [facility] [place] Comment on above: Refill Request Start: 07-28-2023 Refill Jimbo Swanson APRN.INDUSTRIAL CHEMISTRY TEACHER Work Phone: Internal Medicine [place] Comment on above: Refill Request Start: 07-26-2023 End: 07-26-2023 Anticoagulant drug monitoring [facility] Work Phone: [facility] [place] Comment on above: 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 (Primary Dx) Start: 07-20-2023 Telephone encounter Claudine valderrama MD Work Phone: Internal Medicine [place] Comment on above: Medication Problem Start: 07-17-2023 Refill Claudine tavares MD Work Phone: Internal Medicine [place] Comment on above: Refill Request Right knee pain, uns pecified chronicity (Primary Dx) Start: 07-12-2023 Telephone encounter Jimbo sanchez APRN.INDUSTRIAL CHEMISTRY TEACHER Work Phone: Internal Medicine [place] Comment on above: Results Start: 07-12-2023 End: 07-12-2023 Anticoagulant drug monitoring [facility] Work Phone: [facility] [place] Comment on above: Personal history of DVT (deep vein thrombosis) (Primary Dx) Start: 07-10-2023 End: 07-10-2023 Office outpatient visit 25 minutes Jimbo Swanson APRN.INDUSTRIAL CHEMISTRY TEACHER Work Phone: Internal Medicine [place] Comment on above: Acute pain of right knee (Primary Dx); Chronic anticoagulation; Hip pain, acute, left; Pain and swelling of right lower leg Start: 07-05-2023 ambulatory Ilda Miller RN Work Phone: Quantity Surveyor Management Comment on above: Community Monitoring Outreach (F/U engagement CDM Home Monitoring) Start: 07-05-2023 End: 07-05-2023 [facility] Work [facility]: [facility] [place] Comment on above: Personal history of DVT (deep vein thrombosis) (Primary Dx) Start: 07-01-2023 Refill Twyla Cuevas APRN.CNP Work Phone: Internal Medicine [place] Comment on above: Refill Request Start: 06-07-2023 Refill Claudine tavares MD Work Phone: [address] [place] [address] Comment on above: Refill Request Start: 06-05-2023 End: 06-05-2023 Office outpatient visit 40 minutes Claudine Durán MD Work Phone: Internal Medicine [place] Comment on above: Anemia, unspecified type (Primary Dx); Elevated LFTs; COPD without exacerbation (HCC); Essential hypertension; Cough due to bronchospasm; Chronic anticoagulation; Encounter for long-term current use of medication; Gastric ulcer with hemorrhage, unspecified chronicity Start: 05-31-2023 End: 05-31-[address] Claudine Durán Work Phone: [facility] Work Phone: Start: 05-31-2023 End: 05-31-2023 Dr. Claudine Durán Work Phone: [facility] Start: 05-29-2023 End: 05-29-[address] Claudine Durán Work Phone: [facility] Work Phone: Start: 05-29-2023 End: 05-29-2023 Dr. Claudine Durán Work Phone: [facility] Start: 05-28-2023 End: 05-28-[address] Claudine Durán Work Phone: [facility] Work Phone: Start: 05-28-2023 End: 05-28-2023 Dr. Claudine Durán Work Phone: [facility] Start: 05-24-2023 End: 05-24-[address] Claudine Durán Work Phone: [facility] Work Phone: Start: 05-24-2023 End: 05-24-2023 Dr. Claudine Durán Work Phone: [facility] Start: 05-21-2023 End: 05-21-[address] Claudine Durán Work Phone: [facility] Work Phone: Start: 05-21-2023 End: 05-21-2023 Dr. Claudine Durán Work Phone: [facility] Start: 05-17-2023 End: 05-17-[address] Claudine Durán Work Phone: [facility] Work Phone: Start: 05-17-2023 End: 05-17-2023 Dr. Claudine Durán Work Phone: [facility] Start: 05-15-2023 End: 05-15-[address] Claudine Durán Work Phone: [facility] Work Phone: Start: 05-15-2023 End: 05-15-2023 Dr. Claudine Durán Work Phone: [facility] Start: 05-14-2023 End: 05-14-[address] Claudine Durán Work Phone: [facility] Work Phone: Start: 05-14-[address] Claudine hurt Work Phone: [facility] Start: 05-14-2023 End: 05-14-2023 Dr. Claudine Durán Work Phone: [facility] Start: 05-10-2023 End: 05-10-[address] Claudine Durán Work Phone: [facility] Work Phone: Start: 05-10-[address] Claudine hurt Work Phone: [facility] Start: 05-10-2023 End: 05-10-2023 Dr. Claudien Durán Work Phone: [facility] Start: 05-07-2023 End: 05-07-[address] Claudine Durán Work Phone: [facility] Work Phone: Start: 05-07-2023 End: 05-07-[address] Claudine Durán Work Phone: [facility] Start: 05-07-2023 End: 05-07-2023 Dr. Claudine Durán Work Phone: [facility] Start: 05-03-2023 End: 05-03-[address] Claudine Durán Work Phone: [facility] Work Phone: Start: 05-03-[address] Claudine hurt Work Phone: [facility] Start: 05-03-2023 End: 05-03-2023 Dr. Claudine Durán Work Phone: [facility] Start: 05-01-2023 End: 05-01-2023 Dr. Claudine Durán Work Phone: [facility] Work Phone: Start: 05-01-2023 End: 05-01-[address] Claudine Durán Work Phone: [facility] Work Phone: Start: 05-01-2023 End: 05-01-[address] Claudine Durán Work Phone: [facility] Start: 05-01-[address] Claudine hurt Work Phone: [facility] Start: 05-01-2023 End: 05-01-2023 Dr. Claudine Durán Work Phone: [facility] Start: 04-30-2023 Telephone encounter Claudine valderrama MD Work Phone: [facility] [place] Comment on above: Clinical Update Start: 04-30-2023 End: 04-30-2023 Dr. Claudine Durán Work Phone: [facility] Work Phone: Start: 04-10-2023 Non-patient / Non-visit Dr. Sabrina Durán Work Phone: [facility] Start: 04-10-2023 Dr. Claudine avila Work Phone: [facility] Start: 04-10-2023 End: 04-10-[address] Claudine Durán Work Phone: [facility] Work Phone: Start: 04-10-2023 End: 04-10-[address] Claudine Durán Work Phone: [facility] Work Phone: Start: 04-10-2023 End: 04-10-2023 Dr. Claudine Durán [facility] Work Phone: Start: 04-09-2023 Non-patient / Non-visit Dr. Sabrina Durán Work Phone: [facility] Work Phone: Start: 04-09-2023 Dr. Claudine avila Work Phone: [facility] Work Phone: Start: 04-05-2023 End: 04-30-2023 Evaluation and management of inpatient Dr. Claudine Durán [facility] Start: 04-05-2023 End: 04-30-2023 Dr. Claudine Durán Work Phone: [facility] Start: 04-05-2023 Non-patient / Non-visit Dr. Sabrina Durán Work Phone: [facility] Work Phone: Start: 04-05-2023 Dr. Claudine avila Work Phone: [facility] Work Phone: Start: 04-04-2023 Non-patient / Non-visit Dr. Sabrina Durán Work Phone: [facility] Work Phone: Start: 04-04-2023 Dr. Claudine avila Work Phone: [facility] Work Phone: Start: 04-04-2023 Non-patient / Non-visit Dr. Sabrina Durán Work Phone: [facility] Start: 04-04-2023 Dr. Claudine avila Work Phone: [facility] Start: 04-03-2023 Non-patient / Non-visit Dr. Sabrina Durán Work Phone: [facility] Start: 04-03-2023 Dr. Claudine avila Work Phone: [facility] Start: 04-02-2023 Non-patient / Non-visit Dr. Sabrina Durán Work Phone: [facility] Work Phone: Start: 04-02-2023 Dr. Claudine avila Work Phone: [facility] Work Phone: Start: 04-02-2023 Non-patient / Non-visit Dr. Sabrina Durán Work Phone: [facility] Start: 04-02-2023 Dr. Claudine avila Work Phone: [facility] Start: 04-02-2023 Non-patient / Non-visit Dr. Sabrina Durán Work Phone: [facility] Start: 04-02-2023 Dr. Claudine avila Work Phone: [facility] Start: 04-02-2023 Non-patient / Non-visit Dr. Sabrina Durán Work Phone: [facility] Start: 04-02-2023 Dr. Claudine avila Work Phone: [facility] Start: 04-01-2023 Non-patient / Non-visit Dr. Sabrina Durán Work Phone: [facility] Start: 04-01-2023 Dr. Claudine avila Work Phone: [facility] Start: 04-01-2023 Non-patient / Non-visit Dr. Sabrina Durán Work Phone: [facility] Work Phone: Start: 04-01-2023 Dr. Claudine avila Work Phone: [facility] Work Phone: Start: 03-31-2023 End: 04-05-2023 Evaluation and management of inpatient Dr. Claudine Durán [facility] Work Phone: Start: 03-31-2023 End: 04-05-2023 Dr. Claudine Durán [facility] Work Phone: Start: 03-28-2023 End: 03-28-2023 Emergency department patient visit Dr. Claudine Durán Work Phone: [facility] Work Phone: Start: 03-28-2023 End: 03-28-2023 Dr. Claudine Durán Work Phone: [facility] Work Phone: Start: 03-27-2023 Non-patient / Non-visit Dr. Sabrina Durán Work Phone: [facility] Work Phone: Start: 03-27-2023 Dr. Claudine avila Work Phone: [facility] Work Phone: Start: 03-27-2023 E-mail encounter fro m caregiver William Messina DO Work Phone: [facility] Start: 03-27-2023 Patient encounter procedure William Messina DO Work Phone: Cardiology Comment on above: Appointment Start: 03-26-2023 End: 03-27-2023 Evaluation and management of inpatient [facility] Work Phone: Start: 03-26-2023 observation encounter [facility] Work Phone: Start: 03-26-2023 End: 03-27-2023 Dr. Claudine Durán Work Phone: [facility] Work Phone: Start: 03-23-2023 Telephone encounter Rachelle Leonard SUPERVISOR IRRIGATION.FINANCIAL ANALYSIS ADVISOR Work Phone: [place] [facility] Comment on above: Appointment Start: 03-19-2023 End: 03-25-2023 Evaluation and management of inpatient CLAUDINE DURÁN Facility:[facility] Start: 03-19-2023 End: 03-19-2023 Emergency department patient visit [facility] Work Phone: Start: 03-19-2023 End: 03-19-2023 Dr. Claudine Durán Work Phone: [facility] Work Phone: Start: 03-15-2023 ambulatory Claudine tavares MD Work Phone: [facility] [place] Comment on above: histoplasmosis Start: 02-27-2023 Telephone encounter Claudine valderrama MD Work Phone: [facility] [place] Comment on above: Results (worsening l iver enzymes) Start: 02-07-2023 End: 02-07-2023 Subsequent hospital visit by physician Xr [facility] Work Phone: Radiology Comment on above: Acute cough [R05.1] Start: 02-07-2023 End: 02-07-2023 Patient encounter procedure Adri Zaragoza SUPERVISOR IRRIGATION.FINANCIAL ANALYSIS ADVISOR Work Phone: [facility] Comment on above: Acute cough (Primary Dx) Start: 02-02-2023 End: 02-02-2023 Anticoagulant drug monitoring Antico[facility] Work Phone: [facility] [place] Comment on above: Personal history of DVT (deep vein thrombosis) (Primary Dx) Start: 01-24-2023 Refill Teresa barboza MD Work Phone: Pulmonary Medicine Comment on above: Refill Request Start: 01-17-2023 End: 01-17-2023 [facility] Work Phone: [facility] [place] Comment on above: Embolism and thrombo sis (HCC) (Primary Dx) Start: 01-10-2023 End: 01-10-2023 [facility] Work Phone: [facility] [place] Comment on above: Personal history of DVT (deep vein thrombosis) (Primary Dx) Start: 01-04-2023 End: 01-04-2023 Office outpatient visit 15 minutes [facility] Work Phone: [facility] [place] Comment on above: Encounter for immuni zation (Primary Dx) Start: 01-04-2023 End: 01-04-2023 [facility] Work Phone: [facility] [place] Comment on above: Embolism and thrombo sis (HCC) (Primary Dx) Start: 12-20-2022 Refill Claudine tavares MD Work Phone: [facility] [place] Comment on above: Refill Request Start: 12-14-2022 End: 12-14-2022 [facility] Work Phone: [facility] [place] Comment on above: Embolism and thrombo sis (HCC) (Primary Dx) Start: 12-07-2022 End: 12-07-2022 [facility] Work Phone: [facility] [place] Comment on above: Embolism and thrombo sis (HCC) (Primary Dx) Start: 11-20-2022 Documentation procedure Mammog adrian Coordinator [facility] Start: 11-20-2022 Letter encounter Mammography Coordinator [facility] Start: 11-17-2022 End: 11-17-2022 Subsequent hospital visit by physician Screen Mammo [facility] Mamm[facility] Comment on above: Encounter for screen ing mammogram for breast cancer [Z12.31] Start: 11-09-2022 Telephone encounter Claudine valderrama MD Work Phone: [facility] [place] Comment on above: Orders (protime) Start: 11-09-2022 End: 11-09-2022 Anticoagulant drug monitoring [facility] Work Phone: [facility] [place] Comment on above: Embolism and thrombo sis (HCC) (Primary Dx) Start: 11-09-2022 End: 11-09-2022 Patient encounter procedure Ron Veras MD Work Phone: Orthopaedics Comment on above: DDD (degenerative di sc disease), lumbar (Primary Dx); Hip pain, acute, left; Age-related osteoporosis without current pathological fracture Start: 11-01-2022 Telephone encounter Claudine valderrama MD Work Phone: [facility] [place] Comment on above: Medication Problem Start: 10-31-2022 ambulatory Ashly Shay RN NURSE IMAGING SERVICES DIRECTOR Comment on above: Medication Request ( Warfarin) Refill Request Start: 10-27-2022 End: 10-27-2022 Office outpatient visit 25 minutes Jimbo Swanson APRN.INDUSTRIAL CHEMISTRY TEACHER Work Phone: [facility] [place] Comment on above: Essential hypertensi on (Primary Dx); Encounter for immunization; Encounter for screening mammogram for breast cancer; COPD without exacerbation (HCC); Low back pain with right-sided sciatica, unspecified back pain laterality, unspecified chronicity; Hip pain, acute, left; 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 rheumatoid factor (HCC); Bronchiectasis without complication (HCC); Lung nodule; Aortic stenosis with bicuspid valve Start: 10-26-2022 End: 10-26-2022 Anticoagulant drug monitoring [facility] Work Phone: [facility] [place] Comment on above: Personal history of DVT (deep vein thrombosis) (Primary Dx) Start: 10-12-2022 End: 10-12-2022 Anticoagulant drug monitoring [facility] Work Phone: [facility] [place] Comment on above: snf current us e of anticoagulant therapy (Primary Dx) Start: 10-06-2022 Refill Jimbo Swanson APRN.CNS Work Phone: [facility] [place] Comment on above: Refill Request Start: 09-25-2022 Telephone encounter Rachelle Schulte APRN.FINANCIAL ANALYSIS ADVISOR Work Phone: Cardiology Comment on above: Results Start: 09-14-2022 Telephone encounter Claudine valderrama MD Work Phone: [facility] [place] Comment on above: Anticoagulation Start: 09-07-2022 End: 09-07-2022 Anticoagulant drug monitoring Anticoag [facility] Work Phone: [facility] [place] Comment on above: Personal history of DVT (deep vein thrombosis) (Primary Dx) Start: 08-29-2022 End: 08-29-2022 Office outpatient visit 15 minutes Rachelle Schulte APRN.FINANCIAL ANALYSIS ADVISOR Work Phone: Cardiology Comment on above: Aortic stenosis with bicuspid valve (Primary Dx); Essential hypertension; History of recurrent deep vein thrombosis (DVT) Start: 08-15-2022 Refill [facility] Provider Pulmonary Medicine Comment on above: Refill Request Start: 08-11-2022 Telephone encounter Claudine valderrama MD Work Phone: [facility] [place] Comment on above: Patient Update Start: 07-24-2022 Orders Only Florence Collins MD Work Phone: Pulmonary Medicine Comment on above: Lung nodules (Primar y Dx); Bronchiectasis without complication (HCC) Start: 07-20-2022 End: 07-20-2022 Patient encounter procedure Florence Collins MD Work Phone: Pulmonary Medicine Comment on above: Lung nodules (Primar y Dx); Bronchiectasis without complication (HCC); 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 rheumatoid factor (HCC) Start: 07-20-2022 End: 07-20-2022 Subsequent hospital visit by physician Ct [facility] (I-Stat) Work Phone: Cat Scan Comment on above: Lung nodules [R91.8] Start: 06-29-2022 End: 06-29-2022 Anticoagulant drug monitoring [facility] Work Phone: [employer] [place] Comment on above: Personal history of DVT (deep vein thrombosis) (Primary Dx) Start: 05-31-2022 ambulatory [facility] Provider Quantity Surveyor Management Comment on above: Home Monitoring Ques tionnaire Reminder + Happy Belated Birthday! Start: 05-31-2022 E-mail encounter fro m caregiver [facility] Provider [facility] Start: 05-23-2022 Telephone encounter Claudine valderrama MD Work Phone: Family [facility] [place] Comment on above: Clearance for surger y Start: 05-04-2022 End: 05-04-2022 Anticoagulant drug monitoring [facility] Work Phone: [employer] [place] Comment on above: Personal history of DVT (deep vein thrombosis) (Primary Dx) Start: 04-21-2022 ambulatory [facility] Provider Quantity Surveyor Management Comment on above: Home Monitoring Prog jelani Reminder Start: 04-21-2022 E-mail encounter fro m caregiver [facility] Provider [facility] [employer] Start: 04-06-2022 End: 04-06-2022 Anticoagulant drug monitoring [facility] Work Phone: [facility] [place] Comment on above: Personal history of DVT (deep vein thrombosis) (Primary Dx) Start: 03-30-2022 End: 03-30-2022 Anticoagulant drug monitoring [facility] Work Phone: [employer] [place] Comment on above: Personal history of DVT (deep vein thrombosis) (Primary Dx) Start: 03-13-2022 End: 03-13-2022 Office outpatient visit 25 minutes Claudine Durán MD Work Phone: [facility] [place] Comment on above: Essential hypertensi on (Primary Dx); Chronic anticoagulation; Aortic stenosis with bicuspid valve; 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 rheumatoid factor (HCC); COPD without exacerbation (HCC); Bronchiectasis without complication (HCC); Acquired hammertoe of left foot; Early dry stage nonexudative age-related macular degeneration of both eyes Start: 02-24-2022 ambulatory [facility] Provider Quantity Surveyor Management Comment on above: [employer] [facility] Monitor ing Program Reminder Start: 02-24-2022 E-mail encounter fro m caregiver [facility] Provider [facility] Start: 02-17-2022 ambulatory [facility] Provider Quantity Surveyor Management Comment on above: [employer] [facility] Monitor ing Program Reminder Start: 02-17-2022 E-mail encounter fro m caregiver [facility] Provider [facility] Start: 02-02-2022 End: 02-02-2022 Anticoagulant drug monitoring [facility] Work Phone: Coumadin [facility] [place] Comment on above: Personal history of DVT (deep vein thrombosis) (Primary Dx) Start: 01-17-2022 ambulatory [facility] Provider Quantity Surveyor Management Comment on above: [employer] [facility] Monitor ing Program Reminder Refill Request Start: 01-17-2022 E-[facility] encounter [facility] Start: 01-10-2022 Refill Jimbo Swanson APRN.INDUSTRIAL CHEMISTRY TEACHER Work Phone: Internal Medicine [place] Comment on above: Refill Request Start: 01-05-2022 End: 01-05-2022 Anticoagulant drug monitoring [facility] Work Phone: Coumadin [facility] [place] Comment on above: Personal history of DVT (deep vein thrombosis) (Primary Dx) Start: 12-31-2021 End: 12-31-2021 Subsequent hospital visit by physician Robbie [facility] [place] Work Phone: Radiology Comment on above: Hip pain, acute, lef t [M25.552] Start: 12-22-2021 End: 12-22-2021 Anticoagulant drug monitoring [facility] Work Phone: [employer] [place] Comment on above: Personal history of DVT (deep vein thrombosis) (Primary Dx) Start: 11-29-2021 ambulatory Jimbo Swanson SUPERVISOR IRRIGATION.INDUSTRIAL CHEMISTRY TEACHER Work Phone: Internal Medicine [place] Comment on above: Blood pressure Start: 11-29-2021 End: 11-29-2021 Patient encounter procedure Florence Collins MD Work Phone: Pulmonary Medicine Comment on above: Lung nodules (Primar y Dx); Bronchiectasis without complication (HCC); Chronic obstructive pulmonary disease, unspecified COPD type (HCC); 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 rheumatoid factor (HCC) Start: 11-24-2021 Telephone encounter Chacho Hamilton Work Phone: Radiology Comment on above: Results Start: 11-10-2021 End: 11-10-2021 Patient encounter procedure Jimbo Swanson CONNIERcINDUSTRIAL CHEMISTRY TEACHER Work Phone: Internal Medicine [place] Comment on above: Essential hypertensi on (Primary Dx); Chronic obstructive pulmonary disease, unspecified COPD type (HCC); Encounter for immunization; Gastroesophageal reflux disease without esophagitis; Bronchiectasis without complication (HCC); COPD without exacerbation (HCC); Aortic stenosis with bicuspid valve Start: 11-08-2021 Refill Claudine tavares MD Work Phone: Internal Medicine [place] Comment on above: Refill Request Start: 11-01-2021 End: 11-01-2021 Patient encounter procedure Chacho Louise Work Phone: Podiatry Comment on above: Ulcer of toe of left foot, limited to breakdown of skin (HCC) (Primary Dx); Hammer toe of left foot; Hallux rigidus of left foot Start: 10-27-2021 Telephone encounter Claudine valderrama MD Work Phone: Coumadin [facility] [place] Comment on above: Orders (protime) Start: 10-27-2021 End: 10-27-2021 [facility] Work Phone: [facility] [place] Comment on above: Personal history of DVT (deep vein thrombosis) (Primary Dx) Start: 10-18-2021 End: 10-18-2021 Patient encounter procedure Chacho Louise Work Phone: Podiatry Comment on above: Ulcer of toe of left foot, limited to breakdown of skin (HCC) (Primary Dx); Hammer toe of left foot; Onychodystrophy Refill Request Start: 10-18-2021 End: 10-18-2021 Subsequent hospital visit by physician Robbie [facility] [place] Work Phone: Radiology Comment on above: Ulcer of toe of left foot, limited to breakdown of skin (HCC) [L97.521] Start: 10-12-2021 End: 10-12-2021 Subsequent hospital visit by physician [facility] Work Phone: Radiology Comment on above: Abnormal mammogram [ R92.8] Start: 09-29-2021 End: 09-29-2021 Anticoagulant drug monitoring [facility] Work Phone: [employer] [place] Comment on above: Personal history of DVT (deep vein thrombosis) (Primary Dx) Start: 09-20-2021 End: 09-20-2021 Patient encounter procedure Jimbobetina Swanson APRN.INDUSTRIAL CHEMISTRY TEACHER Work Phone: Internal Medicine [place] Comment on above: Toe infection (Prima ry Dx); Sinobronchitis Start: 09-05-2021 Documentation procedure Mammog adrian Coordinator [facility] Start: 09-05-2021 Letter encounter Mammography Coordinator [facility] Department Start: 09-05-2021 End: 09-05-2021 Subsequent hospital visit by physician Screen Mammo [facility] Mammogram Comment on above: Encounter for screen ing mammogram for breast cancer [Z12.31] Start: 08-23-2021 End: 08-23-2021 Anticoagulant drug monitoring [facility] Work Phone: [facility] [place] Comment on above: Personal history of DVT (deep vein thrombosis) (Primary Dx) Start: 08-12-2021 End: 08-12-2021 Patient encounter procedure William Messina DO Work Phone: Cardiology Comment on above: Aortic stenosis with bicuspid valve (Primary Dx); Essential hypertension Start: 07-28-2021 Refill Mirian Andujar MD Work Phone: Pulmonary Medicine Comment on above: Refill Request (symb icort ) Start: 07-25-2021 End: 07-25-2021 Anticoagulant drug monitoring [facility] Work Phone: [employer] [place] Comment on above: Personal history of DVT (deep vein thrombosis) (Primary Dx) Start: 07-11-2021 End: 07-11-2021 Office outpatient visit 25 minutes Claudine Durán MD Work Phone: Internal Medicine [place] Comment on above: Gastroesophageal ref lux disease without esophagitis (Primary Dx); Other viral warts; Elevated LDL cholesterol level; Essential hypertension; Need for COVID-19 vaccine; COPD without exacerbation (HCC); Bronchiectasis without complication (HCC) Start: 07-07-2021 End: 07-07-2021 Patient encounter procedure [facility], Specimen Start: 06-29-2021 ambulatory Gold Coy RN Quantity Surveyor Management Comment on above: Community Monitoring Outreach (COPD CDM Outreach) Start: 06-09-2021 End: 06-09-2021 Anticoagulant drug monitoring [facility] Work Phone: [facility] [place] Comment on above: Embolism and thrombo sis (HCC) Start: 06-04-2021 Refill Claudine tavares MD Work Phone: Internal Medicine [place] Comment on above: Refill Request Start: 2021 End: 2021 Patient encounter procedure Mirian Andujar MD Work Phone: Pulmonary Medicine Comment on above: Moderate COPD (chron ic obstructive pulmonary disease) (HCC) (Primary Dx); Bronchiectasis without complication (HCC); Centrilobular emphysema (HCC) Start: 05-26-2021 End: 05-26-2021 [facility] Work [facility] [place] Comment on above: Embolism and thrombo sis (HCC) Start: 05-20-2021 ambulatory Nara (Pss) [facility] [place] Comment on above: Population Health Na vigation Outreach ([employer] Gaps) Start: 03-14-2021 End: 03-14-2021 Patient encounter procedure Claudine Durán MD Work Phone: Internal Medicine [place] Comment on above: Essential hypertensi on (Primary Dx); History of COVID-19; Cough; Bronchiectasis without complication (HCC); Gastroesophageal reflux disease without esophagitis; Aortic stenosis with bicuspid valve; 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 rheumatoid factor (HCC) Start: 02-28-2018 Patient encounter procedure Will [facility] Start: 10-02-2014 End: 10-03-2014 Ambulatory Mykel BcRc Norrisjesse Facility[facility] Procedures Date Procedure Procedure Detail Performing Clinician Start: 06-20-2024 Evaluation of diagnostic study results Dr. Claudine Durán MD Work Phone: Start: 04-30-2024 Radiologic exam chest 2 views Leandra mckeon SUPERVISOR IRRIGATION.INDUSTRIAL CHEMISTRY TEACHER Work Phone: Start: 03-25-2024 Rp loclzj mary spect w/ct 1 area 1 day imaging Monica Newman-Marshall SUPERVISOR IRRIGATION.FINANCIAL ANALYSIS ADVISOR Work Phone: Start: 03-25-2024 Spmtry w/vc expiratory milton w/wo mxml vol vntj Monica Newman-Ponchohochristofer SUPERVISOR IRRIGATION.FINANCIAL ANALYSIS ADVISOR Work Phone: Start: 03-21-2024 Radiologic exam chest 2 views Monica Newman-Marshall SUPERVISOR IRRIGATION.FINANCIAL ANALYSIS ADVISOR Work Phone: Start: 03-21-2024 Ct angiography chest w/contrast/noncontrast Monica Newman-Marshall SUPERVISOR IRRIGATION.FINANCIAL ANALYSIS ADVISOR Work Phone: Start: 03-21-2024 Ct angio abd&plvis cntrst mtrl w/wo cntrst img Monicadenise Newman-Ponchohochristofer SUPERVISOR IRRIGATION.FINANCIAL ANALYSIS ADVISOR Work Phone: Start: 03-21-2024 Creatinine [Mass/volume] in Serum or Plasma [facility] Provider Start: 02-29-2024 Adult depression screening assessment Claudine Durán MD Work Phone: Start: 08-22-2023 Prothrombin time Claudine Durán MD Work Phone: Start: 04-13-[address] Claudine Durán Work Phone: Start: 04-13-2023 Plain chest X-ray Dr. Claudine Durán Work Phone: Start: 04-09-[address] Claudine Durán Work Phone: Start: 04-06-[address] Claudine Durán Work Phone: Start: 04-02-[address] Claudine banks Work Phone: Start: 03-31-[address] Claudine Durán Work Phone: Start: 03-31-2023 Plain chest X-ray Dr. Claudine Durán Work Phone: Start: 03-31-2023 Plain X-ray of tibia and fibula Dr. Claudine Durán Work Phone: Start: 03-28-2023 Plain chest X-ray Dr. Claudine Durán Work Phone: Start: 03-26-2023 Plain chest X-ray Start: 03-19-2023 SARS-CoV-2, Influenza & RSV (PCR) Start: 03-19-2023 Dr. Claudine Durán Work Phone: Start: 03-19-2023 CT of abdomen and pelvis without contrast Start: 03-19-2023 CT angiography of chest with contrast Start: 02-07-2023 COVID & INFLUENZA A/B & RSV NAAT, ROUTINE Adri Zaragoza SUPERVISOR IRRIGATION.FINANCIAL ANALYSIS ADVISOR Work Phone: Start: 02-07-2023 Radiologic exam chest 2 views Adri de la rosa SUPERVISOR IRRIGATION.FINANCIAL ANALYSIS ADVISOR Work Phone: Start: 01-04-2023 PFIZER-BIONTECH COVID-19 VACCINE (2022- SEASON) AGE 12+ YR Jimbo Swanson SUPERVISOR IRRIGATION.INDUSTRIAL CHEMISTRY TEACHER Work Phone: Start: 01-04-2023 Prothrombin time Jimbo Swanson SUPERVISOR IRRIGATION.INDUSTRIAL CHEMISTRY TEACHER Work Phone: Start: 11-17-2022 Screening digital breast tomosynthesis Jimbo Swanson SUPERVISOR IRRIGATION.INDUSTRIAL CHEMISTRY TEACHER Work Phone: Start: 09-08-2023 INFLUENZA VACCINE, PRSV FREE, AGE 65+ YR, HIGH DOSE, QUADRIVALENT (FLUZONE HIGH-DOSE) Jimbo Swanson SUPERVISOR IRRIGATION.INDUSTRIAL CHEMISTRY TEACHER Work Phone: Start: 08-29-2022 Ecg routine ecg w/least 12 lds i&r only [facility] Provider Start: 07-20-2022 Ct thorax w/o contrast material Meche Collins MD Work Phone: Start: 12-31-2021 Radex hip unilateral with pelvis 2-3 views Ernie Belcher SUPERVISOR IRRIGATION.FINANCIAL ANALYSIS ADVISOR Work Phone: Start: 11-10-2021 INFLUENZA SEASONAL QUADRIVALENT HIGH DOSE AGE 65+ Jimbo Sans SUPERVISOR IRRIGATION.INDUSTRIAL CHEMISTRY TEACHER Work Phone: Start: 11-10-2021 PFIZER-BIONTECH COVID-19 BIVALENT BOOSTER VACCINE, AGE 12+ YR Jimbo Sans SUPERVISOR IRRIGATION.INDUSTRIAL CHEMISTRY TEACHER Work Phone: Start: 11-10-2021 Adult depression screening assessment Jimbo Swanson SUPERVISOR IRRIGATION.INDUSTRIAL CHEMISTRY TEACHER Work Phone: Start: 10-18-2021 Radex foot complete minimum 3 views Shilo hew Testrake Work Phone: Start: 10-12-2021 Diagnostic mammography computer-aided detcj uni [facility] SUPERVISOR IRRIGATION.FINANCIAL ANALYSIS ADVISOR Work Phone: Start: 09-05-2021 End: 09-05-2021 Screening mammography bi 2-view breast inc cad [facility] SUPERVISOR IRRIGATION.FINANCIAL ANALYSIS ADVISOR Work Phone: Start: 07-11-2021 PFIZER-BIONTECH COVID-19 VACCINE, AGE 12+ YR (ARIAS TOP) Claudine Durán MD Work Phone: Start: 07-07-2021 Lipid 1996 panel - Serum or Plasma Ashly Shay RN Start: 07-13-2020 Adult depression screening assessment Nara Dopa Start: 06-01-2020 Mammography Nara Dopart Start: 03-24-2019 Colonoscopy Nara Dopart Plan of Treatment Date Care Activity Detail Author Start: 11-05-2029 Urine microalbumin profile [facility] Start: 03-24-2029 Colonoscopy COLONOSCOPY [facility] Start: 03-24-2029 COLORECTAL CANCER SCREENING COLORECTAL CANCER SCREENING [facility] Start: 03-24-2029 Screening for malignant neoplasm of colon [facility] Start: 07-23-2027 Diabetes Screening Diabetes Screening [facility] Start: 05-04-2027 Diabetes Screening Diabetes Screening [facility] Start: 05-01-2027 Diabetes Screening Diabetes Screening [facility] Start: 03-24-2027 Diabetes Screening Diabetes Screening [facility] Start: 03-21-2027 Diabetes Screening Diabetes Screening [facility] Start: 10-10-2026 Diabetes Screening Diabetes Screening [facility] Start: 08-29-2026 Diabetes Screening Diabetes Screening [facility] Start: 08-21-2026 Diabetes Screening Diabetes Screening [facility] Start: 07-07-2026 Lipid 1996 panel - Serum or Plasma Lipid Screening [facility] Start: 07-07-2026 Lipid panel Lipid Screening [facility] Start: 07-07-2026 LIPID SCREEN LIPID SCREEN [facility] Start: 06-04-2026 Diabetes Screening Diabetes Screening [facility] Start: 03-25-2026 Diabetes Screening Diabetes Screening [facility] Start: 03-22-2026 Diabetes Screening Diabetes Screening [facility] Start: 05-26-2025 End: 05-26-2025 Patient encounter procedure 05/26/2025 9:00 AM EDT Office Visit Internal [facility] [address] [place], [place] [id number] Jimbo Swanson, SUPERVISOR IRRIGATION.INDUSTRIAL CHEMISTRY TEACHER [address] [place] [address] Medicare Wellness [facility] Comment on above: Medicare Wellness Start: 05-20-2025 BP Controlled (<130/80) BP Controlled (<130/80) [facility] Start: 05-20-2025 zzBP Controlled (<130/80) (Retired) zzBP Controlled (<130/80) (Retired) [facility] Start: 04-30-2025 BP Controlled (<130/80) BP Controlled (<130/80) [facility] Start: 02-28-2025 Annual PCP Team Chronic Disease Visit Annual PCP Team Chronic Disease Visit [facility] Start: 02-28-2025 Anxiety Screening Anxiety Screening [facility] Start: 02-28-2025 Covid-19 Vaccine (9 - 2024-25 season) Covid-19 Vaccine () [facility] Comment on above: Postponed from 01/17/2024 (Declined at t his time) Postponed from 05/22 (Declined at this time) Start: 02-28-2025 Covid-19 Vaccine (9 - Pfizer risk ) Covid-19 Vaccine (9 - Pfizer risk ) [facility] Comment on above: Postponed from 05/22/2024 (Declined at t his time) Start: 02-28-2025 Depression Screening Depression Screening [facility] Start: 01-01-2025 BP Controlled (<130/80) BP Controlled (<130/80) [facility] Start: 10-27-2024 End: 10-27-2024 Patient encounter procedure 10/27/2024 10:00 AM EDT Office Visit [facility] [place] [facility] [address] [place] [address] Geno Hart MD [address] [place] [address] Return in about 6 months (around 10/22/2024). [facility] [place] [facility] Comment on above: Return in about 6 months (around ). Start: 10-20-2024 Influenza vaccination Influenza Vaccine (#1) [facility] Start: 10-17-2024 BP Controlled (<130/80) BP Controlled (<130/80) [facility] Start: 10-10-2024 BP Controlled (<130/80) BP Controlled (<130/80) [facility] Start: 09-03-2024 End: 09-03-2024 Anticoagulant drug monitoring 09/03/2024 10:00 AM EDT Antico[facility] [address] [place], [place] [id number] Wstr, Anticoag [facility] [address] [place], [place] [id number] inr [facility] Comment on above: inr Start: 08-27-2024 BP Controlled (<130/80) BP Controlled (<130/80) [facility] Start: 08-26-2024 BP Controlled (<130/80) BP Controlled (<130/80) [facility] Start: 08-21-2024 Annual PCP Team Chronic Disease Visit Annual PCP Team Chronic Disease Visit [facility] Start: 08-21-2024 BP Controlled (<130/80) BP Controlled (<130/80) [facility] Start: 08-21-2024 End: 08-21-2024 Anticoagulant drug monitoring 08/21/2024 10:30 AM EDT Anticoagulation Visit [facility] [address] [facility] [address] Wstr, Anticoag [facility] [place] [address] [place] [address] inr [facility] Comment on above: inr Start: 08-07-2024 Annual PCP Team Chronic Disease Visit Annual PCP Team Chronic Disease Visit [facility] Start: 08-06-2024 End: 08-06-2024 Anticoagulant drug monitoring 08/06/2024 10:30 AM EDT Anticoagulation Visit [facility] [address] [facility] [address] Wstr, Anticoag [facility] [place] [address] [place] [address] inr [facility] Comment on above: inr Start: 07-22-2024 End: 07-22-2024 Patient encounter procedure Cardiology Comment on above: S/P TAVR Start: 07-22-2024 End: 07-22-2024 ambulatory [facility] J1-4 Dra mikal Rosales Comment on above: LAB S/P TAVR Start: 07-21-2024 End: 07-21-2024 Anticoagulant drug monitoring 07/21/2024 10:30 AM EDT Antico[facility] [address] [facility] [address] Wstr, Anticoag [facility] [place] [address] [facility] [place], [place] [address] inr [facility] Comment on above: inr Start: 07-09-2024 BP Controlled (<130/80) BP Controlled (<130/80) [facility] Start: 07-07-2024 End: 07-07-2024 Anticoagulant drug monitoring 07/07/2024 10:30 AM EDT Anticoagulation Visit [facility] [address] [place], [place] [address] Wstr, [facility] [address] [place] [address] inr [facility] Comment on above: inr Start: 06-16-2024 End: 09-15-2024 HISTOPLASMA AG URINE HISTOPLASMA AG URINE Lab Routine Disseminated histoplasmosis Expected: 06/16/2024, Expires: 09/15/2024 [facility] Work Phone: Comment on above: Expected: 06/16/2024, Expires: Start: 06-04-2024 Annual PCP Team Chronic Disease Visit Annual PCP Team Chronic Disease Visit [facility] Start: 06-04-2024 BP Controlled (<130/80) BP Controlled (<130/80) [facility] Start: 06-03-2024 End: 06-03-2024 Anticoagulant drug monitoring 06/03/2024 2:30 PM EDT Anticoagulation Visit [facility] [address] [place] [address] Wstr, [facility] [address] [place] [address] inr [facility] Comment on above: inr Start: 05-20-2024 End: 05-20-2024 Patient encounter procedure 05/20/2024 1:00 PM EDT Office Visit Internal [facility] [address] [place], [place] [address] Jimbo Swanson APRN.INDUSTRIAL CHEMISTRY TEACHER [address] [place], [place] [id number] Medicare Wellness [facility] Comment on above: Medicare Wellness Start: 05-20-2024 End: 05-20-2024 Anticoagulant drug monitoring 05/20/2024 12:30 PM EDT Anticoagulation Visit [facility] [address] [facility] [place] [address] Wstr, Anticoag [facility] [address] [facility] [place] [address] inr [facility] Comment on above: inr Start: 05-05-2024 End: 05-05-2024 Patient encounter procedure Cardiology Comment on above: S/P TAVR Start: 05-02-2024 End: 08-01-2024 CBC W Auto Differential panel - Blood COMPLETE BLOOD COUNT AND DIFFERENTIAL Lab STAT Nonrheumatic aortic valve stenosis Aortic valve disorder Expected: 05/02/2024 (Approximate), Expires: 08/01/2024 [facility] Comment on above: Expected: 05/02/2024 (Approximate), Expi res: 08/01/2024 Start: 05-02-2024 End: 08-01-2024 Comprehensive metabolic 2000 panel - Serum or Plasma COMPREHENSIVE METABOLIC PANEL Lab STAT Nonrheumatic aortic valve stenosis Aortic valve disorder Expected: 05/02/2024 (Approximate), Expires: 08/01/2024 [facility] Comment on above: Expected: 05/02/2024 (Approximate), Expi res: 08/01/2024 Start: 05-02-2024 End: 08-01-2024 CONFIRM BLOOD TYPE CONFIRM BLOOD TYPE Blood Bank STAT Nonrheumatic aortic valve stenosis Aortic valve disorder Expected: 05/02/2024 (Approximate), Expires: 08/01/2024 [facility] Comment on above: Expected: 05/02/2024 (Approximate), Expi res: 08/01/2024 Start: 05-02-2024 End: 08-01-2024 Natriuretic peptide.B prohormone N-Terminal [Mass/volume] in Serum or Plasma NT PRO BNP Lab STAT Nonrheumatic aortic valve stenosis Aortic valve disorder Expected: 05/02/2024 (Approximate), Expires: 08/01/2024 [facility] Comment on above: Expected: 05/02/2024 (Approximate), Expi res: 08/01/2024 Start: 05-02-2024 End: 08-01-2024 PT panel - Platelet poor plasma by Coagulation assay PROTHROMBIN TIME Lab STAT Nonrheumatic aortic valve stenosis Aortic valve disorder Expected: 05/02/2024 (Approximate), Expires: 08/01/2024 [facility] Comment on above: Expected: 05/02/2024 (Approximate), Expi res: 08/01/2024 Start: 05-02-2024 End: 08-01-2024 TYPE AND SCREEN,30 DAY TYPE AND SCREEN,30 DAY Blood Bank STAT Nonrheumatic aortic valve stenosis Aortic valve disorder Expected: 05/02/2024 (Approximate), Expires: 08/01/2024 [facility] Comment on above: Expected: 05/02/2024 (Approximate), Expi res: 08/01/2024 Start: 05-02-2024 End: 05-02-2024 Replace aortic valve perq femoral artry approach TRANSCATHETER AORTIC VALVE REPLACEMENT (TAVR/ROLA) W/ PROSTHETIC VALVE PERCUTANEOUS FEMORAL ARTERY APPROACH Aortic valve stenosis, etiology of cardiac valve disease unspecified 05/02/2024 10:32 AM EDT [facility] Start: 05-02-2024 End: 05-02-2024 Patient encounter procedure 05/02/2024 8:45 AM EDT Office Visit Cardiology [address] [place] [id number] COMMERCIAL TF- TAVR ( CARLYN) Cardiology Comment on above: COMMERCIAL TF- TAVR ( CARLYN) Start: 05-02-2024 End: 05-02-2024 ambulatory 05/02/2024 8:30 AM EDT Procedure Cardiology [address] [id number] COMMERCIAL TF- TAVR ( CARLYN) Cardiology Comment on above: COMMERCIAL TF- TAVR ( CARLYN) Start: 05-02-2024 End: 05-02-2024 Anesthesia consultation 05/02/2024 8:00 AM EDT Anesthesia Event Admitting [address] [place] [address] Nara Mcnair APRN.[address], [address] [place] [id number] Admitting Start: 05-02-2024 End: 05-02-2024 Admission to same day surgery center Admitting Comment on above: TRANSCATHETER AORTIC VALVE REPLACEMENT ( TAVR/ROLA) W/ PROSTHETIC VALVE PERCUTANEOUS FEMORAL ARTERY APPROACH Start: 05-02-2024 End: 05-02-2024 Replace aortic valve perq femoral artry approach TELMA PE[facility]A CT & VAS Start: 05-02-2024 Subsequent hospital visit by physician Admitting Comment on above: COMMERCIAL TF- TAVR ( CARLYN), Procedure o n: Thursday May 02, 2024 at 8:30 am Start: 05-01-2024 End: 05-01-2024 Anticoagulant drug monitoring 05/01/2024 11:30 AM EDT Anticoagulation Visit Coumadin [address] [id number] Wstr, Anticoag [facility] [address] [place], [place] [address] inr [facility] Comment on above: inr Start: 04-30-2024 End: 04-30-2024 Patient encounter procedure 04/30/2024 2:20 PM EDT Office Visit Cardiothoracic [address] [place] [address] COMMERCIAL TF- TAVR ( CARLYN) Cardiothoracic Comment on above: COMMERCIAL TF- TAVR ( CARLYN) Start: 04-30-2024 End: 04-30-2024 Patient encounter procedure Cardiology Comment on above: COMMERCIAL TF- TAVR ( CARLYN) Start: 04-30-2024 End: 04-30-2024 ambulatory 04/30/2024 11:00 AM EDT Results Only [facility] [address] [place] [address] COMMERCIAL TF- TAVR ( CARLYN) [facility] Comment on above: COMMERCIAL TF- TAVR ( CARLYN) Start: 04-21-2024 End: 04-21-2024 Patient encounter procedure 04/21/2024 11:00 AM EST Office Visit [facility] [place] Department of Infect[facility] Disease [address] [place] [address] Geno Hart MD [address] [place] [address] Return in about 4 months (around 04/18/2024). [facility] [place] [facility] Comment on above: Return in about 4 months (around 04/18/19). Start: 04-03-2024 End: 04-03-2024 Anticoagulant drug monitoring 04/03/2024 11:30 AM EST Anticoagulation Visit [facility] [address] [place], [place] [address] Wstr, Anticoag [facility] [address] [place], [place] [phone] inr [facility] Comment on above: inr Start: 03-25-2024 End: 03-25-2024 Patient encounter procedure Cardiology Comment on above: New TAVR Workup NM SPECT/CT CARDIAC AMYLOID Start: 03-25-2024 End: 03-25-2024 ambulatory Pulmonary Medicine Comment on above: New TAVR Workup Start: 03-24-2024 End: 03-24-2024 Admission to same day surgery center 03/24/2024 5:45 PM EST - 03/24/2024 6:53 PM EST Surgery HOSP [facility] [address] [place] [address] Michael Beavers MD [address] [place], [place] [phone] CORONARY ANGIO W CATH PLACE W IMAGE INJECT & INTERP W LT HEART CATH W INJECT LT VENTRGRAPHY HOSP [facility] Teacher Comment on above: CORONARY ANGIO W CATH PLACE W IMAGE INJE CT & INTERP W LT HEART CATH W INJECT LT VENTRGRAPHY Start: 03-24-2024 End: 03-24-2024 Cath plmt l hrt & arts w/njx & angio img s&i CORONARY ANGIO W CATH PLACE W IMAGE INJECT & INTERP W LT HEART CATH W INJECT LT VENTRGRAPHY Nonrheumatic aortic valve stenosis 03/24/2024 5:45 PM EST HEALTH ADMINISTRATION TEACHER Start: 03-24-2024 Subsequent hospital visit by physician 03/24/2024 5:45 PM EST Hospital Encounter HOSP [facility] [address] [place] [address] Michael Beavers MD [address] [place], [place] [phone] Nonrheumatic aortic valve stenosis [I35.0] HOSP Pre K Teacher Comment on above: Nonrheumatic aortic valve stenosis [I35. 0] Start: 03-24-2024 End: 03-24-2024 Patient encounter procedure 03/24/2024 10:00 AM EST Office Visit Admitting [address] [place] [address] ADMIT Admitting Comment on above: ADMIT Start: 03-24-2024 End: 03-24-2024 ambulatory Cardiology Comment on above: [facility] Start: 03-21-2024 End: 03-21-2024 ambulatory [facility] J1-4 Dra mikal Rosales Comment on above: New TAVR Workup Start: 03-21-2024 End: 03-21-2024 Patient encounter procedure Radiology Comment on above: New TAVR Workup Start: 03-21-2024 End: 03-21-2024 Patient encounter procedure 03/21/2024 9:30 AM EST Office Visit Cardiology [address] [place] [address] [place] [address] [address] [place], [place] [phone] Clinician, Interventional [address] [place], [place] [id number] New TAVR Workup Cardiology Comment on above: New TAVR Workup Start: 03-03-2024 BP Controlled (<130/80) BP Controlled (<130/80) [facility] Start: 02-29-2024 End: 02-29-2024 Patient encounter procedure 02/29/2024 3:40 PM EST Office Visit [facility] [address] [place], [place] [phone] Claudine Durán MD [address] [place], [place] [phone] 4 Month follow up [facility] Comment on above: 4 Month follow up Start: 02-29-2024 End: 02-29-2024 Anticoagulant drug monitoring 02/29/2024 3:30 PM EST Anticoagulation Visit [facility] [address] [place] [address] Wstr, [facility] [address] [place], [place] [address] inr [facility] Comment on above: inr Start: 02-25-2024 End: 02-25-2024 Patient encounter procedure 02/25/2024 12:15 PM EST Office Visit Cardiology [address] [place] [address] Ines Drew MD [address] [place], [place] [phone] Aortic valve stenosis, etiology of cardiac valve disease unspecified [I35.0] Cardiology Comment on above: Aortic valve stenosis, etiology of cardi ac valve disease unspecified [I35.0] Start: 02-20-2024 Advance Directive Discussion Advance Directive Discussion [facility] Start: 01-31-2024 End: 01-31-2024 Anticoagulant drug monitoring 01/31/2024 10:30 AM EST Anticoagulation Visit [facility] [address] [place] [address] Wstr, [facility] [address] [place], [place] [address] inr Coumadin [facility] Comment on above: inr Start: 01-25-2024 End: 01-25-2024 Patient encounter procedure 01/25/2024 11:20 AM EST Office Visit Cardiology [address] [address] William Messina DO [address] [place] [address] 3 month follow up Cardiology Comment on above: 3 month follow up Start: 01-18-2024 End: 10-17-2024 ECHO LIMITED ECHO LIMITED Cardiology Routine Pericardial effusion Expected: 01/18/2024 (Approximate), Expires: 10/17/2024 [facility] Work Phone: Comment on above: Expected: 01/18/2024 (Approximate), Expi res: 10/17/2024 Start: 01-18-2024 End: 01-18-2024 Patient encounter procedure 01/18/2024 10:30 AM EST Office Visit Cardiology [address] [address] Pericardial effusion [I31.39] Cardiology Comment on above: Pericardial effusion [I31.39] Start: 01-17-2024 Covid-19 Vaccine () Covid-19 Vaccine () [facility] Start: 01-10-2024 End: 01-10-2024 Anticoagulant drug monitoring 01/10/2024 12:00 PM EST Anticoagulation Visit Coumadin [facility] [address] [place], [place] [id number] Wstr, Anticoag [facility] [address] [place] [address] inr Coumadin [facility] Comment on above: inr Start: 01-08-2024 End: 04-08-2024 CBC W Auto Differential panel - Blood COMPLETE BLOOD COUNT AND DIFFERENTIAL Lab Routine Nonrheumatic aortic valve stenosis Aortic valve disorder Expected: 01/08/2024, Expires: 04/08/2024 [facility] Comment on above: Expected: 01/08/2024, Expires: Start: 01-08-2024 End: 04-08-2024 Comprehensive metabolic 2000 panel - Serum or Plasma COMPREHENSIVE METABOLIC PANEL Lab Routine Nonrheumatic aortic valve stenosis Aortic valve disorder Expected: 01/08/2024, Expires: 04/08/2024 [facility] Comment on above: Expected: 01/08/2024, Expires: Start: 01-08-2024 End: 04-08-2024 HIGH SENSITIVITY TROPONIN T HIGH SENSITIVITY TROPONIN T Lab Routine Nonrheumatic aortic valve stenosis Expected: 01/08/2024, Expires: 04/08/2024 [facility] Comment on above: Expected: 01/08/2024, Expires: 5 Start: 01-08-2024 End: 04-08-2024 Lipoprotein a [Mass/volume] in Serum or Plasma LIPOPROTEIN (A) Lab Routine Nonrheumatic aortic valve stenosis Expected: 01/08/2024, Expires: 04/08/2024 [facility] Comment on above: Expected: 01/08/2024, Expires: 5 Start: 01-08-2024 End: 04-08-2024 Natriuretic peptide.B prohormone N-Terminal [Mass/volume] in Serum or Plasma NT PRO BNP Lab Routine Nonrheumatic aortic valve stenosis Expected: 01/08/2024, Expires: 04/08/2024 [facility] Comment on above: Expected: 01/08/2024, Expires: Start: 01-08-2024 End: 04-08-2024 PT panel - Platelet poor plasma by Coagulation assay PROTHROMBIN TIME Lab STAT Nonrheumatic aortic valve stenosis Expected: 01/08/2024, Expires: 04/08/2024 [facility] Comment on above: Expected: 01/08/2024, Expires: Start: 01-08-2024 End: 01-08-2024 Patient encounter procedure 01/08/2024 10:30 AM EST Office Visit [facility] [place] [facility] [address] [place] [phone] Geno Hart MD [address] [place] [address] follow up [facility] [place] [facility] Comment on above: follow up Start: 01-05-2024 BP Controlled (<130/80) BP Controlled (<130/80) [place] [facility] Start: 01-02-2024 End: 01-02-2024 Patient encounter procedure 01/02/2024 9:45 AM EST Office Visit Cardiology [address] [place] [address] Ines Drew MD [address] [place] [facility] [place] [address] DX: Aortic valve stenosis, etiology of cardiac valve disease unspecified; Mitral valve stenosis, unspecified etiology Cardiology Comment on above: DX: Aortic valve stenosis, etiology of c ardiac valve disease unspecified; Mitral valve stenosis, unspecified etiology Start: 01-02-2024 End: 01-02-2024 ambulatory 01/02/2024 9:00 AM EST Results Only Cardiology [address] [place] [address] DX: Aortic valve stenosis, etiology of cardiac valve disease unspecified; Mitral valve stenosis, unspecified etiology Cardiology Comment on above: DX: Aortic valve stenosis, etiology of c ardiac valve disease unspecified; Mitral valve stenosis, unspecified etiology Start: 12-27-2023 End: 12-27-2023 Anticoagulant drug monitoring 12/27/2023 10:30 AM EST [facility] [address] [place] [address] [facility] [address] [place] [address] inr [facility] Comment on above: inr Start: 12-18-2023 End: 12-18-2023 Patient encounter procedure 12/18/2023 11:00 AM EDT Office Visit [facility] [address] [place] [address] Geno Hart MD [address] [place] [phone] follow up [facility] Comment on above: follow up Start: 12-13-2023 End: 12-13-2023 Anticoagulant drug monitoring 12/13/2023 10:45 AM EDT Antico[facility] [address] [place] [address] Wstr, Anticoag Formerly [facility] [address] [place], [place] [address] [facility]r [facility] Comment on above: inr Start: 11-29-2023 End: 11-29-2023 Anticoagulant drug monitoring 11/29/2023 11:00 AM EDT Antico[facility] [address] [facility] [place] [address] Wstr, Anticoag [facility] [address] [place] [address] inr [facility] Comment on above: inr Start: 11-15-2023 End: 11-15-2023 Anticoagulant drug monitoring 11/15/2023 12:00 PM EDT Anticoagulation [facility] [address] [facility] [place] [address] Wstr, Anticoag [facility] [address] [place] [address] inr [facility] Comment on above: inr Start: 11-08-2023 End: 11-08-2023 Anticoagulant drug monitoring 11/08/2023 1:00 PM EDT Anticoagulation [facility] [address] [facility] [place] [address] Wstr, Anticoag [facility] [address] [place] [address] inr [facility] Comment on above: inr Start: 10-28-2023 BP CONTROLLED (<130/80) BP CONTROLLED (<130/80) [facility] Start: 10-25-2023 End: 10-25-2023 Anticoagulant drug monitoring 10/25/2023 12:00 PM EDT Antico[facility] [address] [facility] [address] Wstr, Anticoag [facility] [address] [place] [address] inr [facility] Comment on above: inr Start: 10-21-2023 Covid-19 Vaccine ( season) Covid-19 Vaccine ( season) [facility] Start: 10-21-2023 Covid-19 Vaccine ( season) Covid-19 Vaccine () [facility] Start: 10-21-2023 Influenza vaccination Influenza Vaccine (#1) [facility] Start: 10-19-2023 End: 10-19-2023 Anticoagulant drug monitoring 10/19/2023 11:00 AM EDT Anticoagulation Visit [facility] [address] [place] [address] Wstr, Anticoag Former[facility] [address] [place] [address] inr [facility] Comment on above: inr Start: 10-18-2023 End: 10-18-2023 Patient encounter procedure 10/18/2023 10:00 AM EDT Office Visit Cardiology [address] [address] Bibi Alegria, SUPERVISOR IRRIGATION.FINANCIAL ANALYSIS ADVISOR [address] [place] [address] 1 month follow up Cardiology Comment on above: 1 month follow up Start: 10-11-2023 End: 10-11-2023 Patient encounter procedure 10/11/2023 1:00 PM EDT Office Visit [facility] [address] [place] [address] Jimbo Swanson, CONNIE.INDUSTRIAL CHEMISTRY TEACHER [address] [place] [address] 4Month follow up [facility] Comment on above: 4Month follow up Start: 09-28-2023 End: 09-28-2023 Patient encounter procedure 09/28/2023 10:30 AM EDT Office Visit Cardiology [address] [address] Nonrheumatic aortic valve stenosis [I35.0] Cardiology Comment on above: Nonrheumatic aortic valve stenosis [I35. 0] Start: 09-27-2023 End: 09-27-2023 Anticoagulant drug monitoring 09/27/2023 10:45 AM EDT Antico[facility] [address] [facility] [place] [address] Wstr, Anticoag Formerly [facility] [address] [place] [address] inr [facility] Comment on above: inr Start: 09-20-2023 End: 09-20-2023 Anticoagulant drug monitoring 09/20/2023 10:00 AM EDT Anticoagulation [facility] [address] [facility] [place] [address] Wstr, Anticoag Formerly [facility] [address] [place] [address] inr [facility] Comment on above: inr Start: 09-10-2023 End: 12-10-2023 Basic metabolic 2000 panel - Serum or Plasma BASIC METABOLIC PANEL Lab Routine Nonrheumatic aortic valve stenosis Mitral valve stenosis, non-rheumatic Essential hypertension Pericardial effusion (noninflammatory) Leg edema Expected: 09/10/2023, Expires: 12/10/2023 [facility] Comment on above: Expected: 09/10/2023, Expires: Start: 09-10-2023 End: 12-10-2023 Natriuretic peptide.B prohormone N-Terminal [Mass/volume] in Serum or Plasma NT PRO BNP Lab Routine Nonrheumatic aortic valve stenosis Mitral valve stenosis, non-rheumatic Essential hypertension Pericardial effusion (noninflammatory) Leg edema Expected: 09/10/2023, Expires: 12/10/2023 [facility] Comment on above: Expected: 09/10/2023, Expires: Start: 08-30-2023 End: 08-30-2023 Anticoagulant drug monitoring 08/30/2023 12:45 PM EDT Anticoagulation [facility] [address] [facility] [address] Wstr, Anticoag [facility] [address] [facility] [place], [place] [id number] inr [facility] Comment on above: inr Start: 08-28-2023 End: 11-27-2023 Histoplasma capsulatum Ab [Presence] in Serum by Immune diffusion (ID) HISTOPLASMA AB ID Lab Routine Disseminated histoplasmosis Encounter for long-term (current) use of antibiotics Expected: 08/28/2023, Expires: 11/27/2023 [facility] Work Phone: Comment on above: Expected: 08/28/2023, Expires: Start: 08-28-2023 End: 08-28-2023 Patient encounter procedure 08/28/2023 9:00 AM EDT Office Visit [facility] [address] [place] [address] Geno Hart MD [address] [place] [address] follow up [facility] Comment on above: follow up Start: 08-27-2023 End: 08-27-2023 Patient encounter procedure 08/27/2023 8:20 AM EDT Office Visit Cardiology [address] [place] [address] William Messina DO [address] [place] [address] Annual Cardiology Comment on above: Annual Start: 08-22-2023 End: 08-22-2023 Anticoagulant drug monitoring 08/22/2023 9:30 AM EDT Anticoagulation [facility] [address] [place], [place] [address] Wstr, Anticoag [facility] [address] [place], [place] [id number] inr [facility] Comment on above: inr Start: 08-15-2023 End: 11-14-2023 Basic metabolic 2000 panel - Serum or Plasma BASIC METABOLIC PANEL Lab Routine Encounter for therapeutic drug monitoring Expected: 08/15/2023, Expires: 11/14/2023 [facility] Work Phone: Comment on above: Expected: 08/15/2023, Expires: Start: 08-15-2023 End: 08-15-2023 Patient encounter procedure Radiology Comment on above: Right knee Right knee pain/swel ling Start: 08-13-2023 End: 08-13-2023 Patient encounter procedure 08/13/2023 9:20 AM EDT Office Visit Cardiology [address] [place] [address] William Messina, [address] [place] [address] annual Cardiology Comment on above: annual Start: 08-09-2023 End: 08-09-2023 Anticoagulant drug monitoring 08/09/2023 9:30 AM EDT Antico[facility] [address] [place] [address] Wstr, Anticoag [facility] [address] [place] [address] inr [facility] Comment on above: inr Start: 07-26-2023 End: 07-26-2023 Anticoagulant drug monitoring 07/26/2023 9:30 AM EDT Anticoagulation Visit [facility] [address] [place] [address] Wstr, Anticoag [facility] [address] [place] [address] inr [facility] Comment on above: inr Start: 07-21-2023 BP CONTROLLED (<130/80) BP CONTROLLED (<130/80) [facility] Start: 07-12-2023 End: 07-12-2023 Anticoagulant drug monitoring 07/12/2023 9:00 AM EDT Anticoagulation Visit [facility] [address] [place] [address] Wstr, Anticoag [facility] [address] [place] [address] inr [facility] Comment on above: inr Start: 07-11-2023 End: 07-11-2023 Patient encounter procedure 07/11/2023 12:00 PM EDT Office Visit [facility] [address] [place] [address] Acute pain of right knee [M25.561] [facility] Comment on above: Acute pain of right knee [M25.561] Start: 07-08-2023 DIABETES SCREEN DIABETES SCREEN [facility] Start: 07-08-2023 Diabetes Screening Diabetes Screening [facility] Start: 05-04-2023 Blood chemistry [facility] Start: 04-30-2023 Development of care plan [facility] Start: 04-30-2023 Patient discharge [facility] Start: 04-27-2023 Blood chemistry [facility] Start: 04-20-2023 Blood chemistry [facility] Start: 04-19-2023 Prothrombin time [facility] Start: 04-17-2023 Prothrombin time [facility] Start: 04-15-2023 Wound care [facility] Start: 04-10-2023 Consultation for treatment [facility] Start: 04-09-2023 Speech therapy management [facility] Start: 04-09-2023 Speech therapy assessment [facility] Start: 04-08-2023 [facility] Start: 04-08-2023 Inhalation therapy procedure [facility] Start: 04-06-2023 Development of care plan [facility] Start: 04-06-2023 Developing a treatment plan [facility] Start: 04-05-2023 Admission procedure [facility] Start: 04-05-2023 Measuring intake and output [facility] Start: 04-05-2023 Patient referral to dietitian [facility] Start: 04-05-2023 Referral to occupational therapist [facility] Start: 04-05-2023 Referral to service [facility] Start: 04-05-2023 Vital signs measurements [facility] Start: 04-05-2023 End: 04-05-2023 [facility] Start: 04-05-2023 Verification routine [facility] Start: 04-05-2023 Patient discharge [facility] Start: 04-05-2023 Prothrombin time [facility] Start: 04-04-2023 Application of intermittent pneumatic compression device [facility] Start: 04-04-2023 Application of intermittent pneumatic compression device [facility] Start: 04-04-2023 Consultation [facility] Start: 04-04-2023 Prothrombin time [facility] Start: 04-03-2023 Consultation [facility] Start: 04-03-2023 Prothrombin time [facility] Start: 04-02-2023 Prothrombin time [facility] Start: 04-01-2023 End: 07-01-2023 ALK PHOS ISOENZYM BL ALK PHOS ISOENZYM BL Lab Routine Elevated alkaline phosphatase level Expected: 04/01/2023, Expires: 07/01/2023 [facility] Work Phone: Comment on above: Expected: 04/01/2023, Expires: 4 Start: 04-01-2023 End: 07-01-2023 Comprehensive metabolic 2000 panel - Serum or Plasma COMP METABOLIC PANEL Lab Routine Hypoalbuminemia Elevated alkaline phosphatase level Elevated LFTs Expected: 04/01/2023, Expires: 07/01/2023 [facility] Work Phone: Comment on above: Expected: 04/01/2023, Expires: 4 Start: 04-01-2023 Application of elastic bandage [facility] Start: 04-01-2023 Administration of blood product [facility] Start: 04-01-2023 End: 07-01-2023 CBC W Auto Differential panel - Blood [facility] Comment on above: Expected: 04/01/2023, Expires: 4 Start: 04-01-2023 Magnesium [Mass/volume] in Serum or Plasma [facility] Start: 04-01-2023 Prothrombin time [facility] Start: 04-01-2023 [facility] Start: 04-01-2023 Inhalation therapy procedure [facility] Start: 03-31-2023 Following clinical pathway protocol [facility] Start: 03-31-2023 Ankle 2 Views Ankle 2 Views [facility] Start: 03-31-2023 Assessment of risk of venous thromboembolism [facility] Start: 03-31-2023 C reactive protein [Mass/volume] in Serum or Plasma [facility] Start: 03-31-2023 Consultation for treatment [facility] Start: 03-31-2023 Elevation of affected extremity [facility] Start: 03-31-2023 Erythrocyte sedimentation rate [facility] Start: 03-31-2023 Insertion of catheter into peripheral vein [facility] Start: 03-31-2023 Measuring intake and output [facility] Start: 03-31-2023 Providing care according to standard [facility] Start: 03-31-2023 Provision of activity privileges [facility] Start: 03-31-2023 Referral to occupational therapist [facility] Start: 03-31-2023 Referral to service [facility] Start: 03-31-2023 US Heart [facility] Start: 03-31-2023 US.doppler Lower extremity vein [facility] Start: 03-31-2023 XR Ankle 2 Views [facility] Start: 03-31-2023 [facility] Start: 03-31-2023 Verification routine [facility] Start: 03-31-2023 Admission procedure [facility] Start: 03-31-2023 Consultation [facility] Start: 03-31-2023 Patient referral to dietitian [facility] Start: 03-28-2023 [facility] Start: 03-28-2023 [facility] Start: 03-28-2023 Emergency department visit high/urgent severity [facility] Start: 03-27-2023 Patient discharge [facility] Start: 03-27-2023 [facility] Start: 03-27-2023 [facility] Start: 03-26-2023 Following clinical pathway protocol [facility] Start: 03-26-2023 Assessment of risk of venous thromboembolism [facility] Start: 03-26-2023 Incentive spirometry [facility] Start: 03-26-2023 Insertion of catheter into peripheral vein [facility] Start: 03-26-2023 Measuring intake and output [facility] Start: 03-26-2023 Providing care according to standard [facility] Start: 03-26-2023 Provision of activity privileges [facility] Start: 03-26-2023 Referral to occupational therapist [facility] Start: 03-26-2023 Referral to service [facility] Start: 03-26-2023 [facility] Start: 03-26-2023 Verification routine [facility] Start: 03-26-2023 Admission procedure [facility] Start: 03-26-2023 Hospital admission, emergency, from emergency room, medical nature [facility] Start: 03-26-2023 [facility] Start: 03-26-2023 Inhalation therapy procedure [facility] Start: 03-19-2023 Fresh frozen plasma [facility] Start: 03-19-2023 End: 03-19-2023 [facility] Start: 03-19-2023 Administration of blood product [facility] Start: 03-13-2023 ANNUAL PCP TEAM CHRONIC DISEASE VISIT ANNUAL PCP TEAM CHRONIC DISEASE VISIT [facility] Start: 03-13-2023 BP CONTROLLED (<130/80) BP CONTROLLED (<130/80) [facility] Start: 03-01-2023 Covid-19 Vaccine () Covid-19 Vaccine () [facility] Start: 02-19-2023 Advance Directive Discussion Advance Directive Discussion [facility] Start: 02-19-2023 Behavioral Health Screening Behavioral Health Screening [facility] Start: 02-19-2023 Depression Assessment Depression Assessment [facility] Start: 01-23-2023 End: 08-23-2023 Ct thorax w/o contrast material CT CHEST WO IVCON Radiology Routine Lung nodules Bronchiectasis without complication (HCC) Expected: 01/23/2023, Expires: 08/23/2023 [facility] Work Phone: Comment on above: Expected: 01/23/2023, Expires: Start: 11-29-2022 BP CONTROLLED (<130/80) BP CONTROLLED (<130/80) [facility] Start: 11-10-2022 Adult depression screening assessment DEPRESSION SCREENING [facility] Start: 10-20-2022 Covid-19 Vaccine () Covid-19 Vaccine () [facility] Start: 10-20-2022 Influenza vaccination INFLUENZA (#1) [facility] Start: 09-20-2022 BP CONTROLLED (<130/80) BP CONTROLLED (<130/80) [facility] Start: 09-05-2022 Mammography MAMMOGRAM [facility] Start: 07-11-2022 ANNUAL PCP TEAM CHRONIC DISEASE VISIT ANNUAL PCP TEAM CHRONIC DISEASE VISIT [facility] Start: 07-11-2022 BP CONTROLLED (<130/80) BP CONTROLLED (<130/80) [facility] Start: 03-14-2022 ANNUAL PCP TEAM CHRONIC DISEASE VISIT ANNUAL PCP TEAM CHRONIC DISEASE VISIT [facility] Start: 03-14-2022 BP CONTROLLED (<130/80) BP CONTROLLED (<130/80) [facility] Start: 02-19-2022 ADVANCE DIRECTIVE DISCUSSION ADVANCE DIRECTIVE DISCUSSION [facility] Start: 02-19-2022 DEPRESSION ASSESSMENT DEPRESSION ASSESSMENT [facility] Start: 01-05-2022 COVID-19 VACCINE (7 - Pfizer risk series) COVID-19 VACCINE (7 - Pfizer risk series) [facility] Start: 11-11-2021 COVID-19 VACCINE (5 - Booster for Pfizer series) COVID-19 VACCINE (5 - Booster for Pfizer series) [facility] Start: 11-10-2021 End: 01-10-2022 Alpha 1 antitrypsin [Mass/volume] in Serum or Plasma [id number] Lab Routine Chronic obstructive pulmonary disease, unspecified COPD type (HCC) Expected: 11/10/2021, Expires: 01/10/2022 [facility] Work Phone: Comment on above: Expected: 11/10/2021, Expires: 2 Start: 10-20-2021 Influenza vaccination INFLUENZA (#1) [facility] Start: 07-13-2021 Adult depression screening assessment DEPRESSION SCREENING [facility] Start: 06-01-2021 Mammography MAMMOGRAM [facility] Start: 02-19-2021 ADVANCE DIRECTIVE DISCUSSION ADVANCE DIRECTIVE DISCUSSION [facility] Start: 02-19-2021 DEPRESSION ASSESSMENT DEPRESSION ASSESSMENT [facility] Start: 02-08-2021 COVID-19 VACCINE (4 - Booster for Pfizer series) COVID-19 VACCINE (4 - Booster for Pfizer series) [facility] Start: 12-27-2020 LIPID SCREEN LIPID SCREEN [facility] Start: 08-04-2017 FECAL OCCULT BLOOD FECAL OCCULT BLOOD [facility] Start: 08-04-2017 Screening for malignant neoplasm of colon Fecal Occult Blood [facility] Start: 2007 RSV Vaccine (1 - 1-dose 60+ series) RSV Vaccine (1 - 1-dose 60+ series) [facility] Start: 05-29-1992 COLOGUARD (FIT-DNA) COLOGUARD (FIT-DNA) [facility] Start: 05-29-[address] COLONOGRAPHY [facility] Start: 05-29-1992 Screening for malignant neoplasm of colon [facility] Start: 05-29-1992 SIGMOIDOSCOPY SIGMOIDOSCOPY [facility] Start: 05-29-1977 Zoledronic acid therapy ALPHA-1 ANTITRYPSIN DEFICIENCY SCREENING [facility] Start: 05-29-1965 Anxiety Screening Anxiety Screening [facility] Start: 05-29-1965 BP CONTROLLED (<130/80) BP CONTROLLED (<130/80) [facility] Start: 05-29-1965 Depression Screening Depression Screening [facility] Alanine aminotransfe rase [Enzymatic activity/volume] in Serum or Plasma [facility] Albumin [Mass/volume ] in Serum or Plasma [facility] Alkaline phosphatase [Enzymatic activity/volume] in Serum or Plasma [facility] Anion gap measurement [facility] Anion gap measurement [facility] Anion gap measurement [facility] Anion gap measurement [facility] Aspartate aminotransferase [Enzymatic activity/volume] in Serum or Plasma [facility] End: 08-21-2024 Basic metabolic 2000 panel - Serum or Plasma BASIC METABOLIC PANEL Lab Routine Encounter for long-term current use of medication 20 Occurrences starting 08/22/2023 until 08/21/2024 [facility] Work Phone: Comment on above: 20 Occurrences starting 08/22/2023 until 08/21/2024 Bilirubin measuremen t, urine [facility] Bilirubin, total measurement [facility] BUN/Creatinine ratio [facility] BUN/Creatinine ratio [facility] BUN/Creatinine ratio [facility] BUN/Creatinine ratio [facility] Calcium [Mass/volume ] in Serum or Plasma [facility] Calcium [Mass/volume ] in Serum or Plasma [facility] Calcium [Mass/volume ] in Serum or Plasma [facility] Calcium [Mass/volume ] in Serum or Plasma [facility] Carbon dioxide, tota l [Moles/volume] in Serum or Plasma [facility] Carbon dioxide, tota l [Moles/volume] in Serum or Plasma [facility] Carbon dioxide, tota l [Moles/volume] in Serum or Plasma [facility] Carbon dioxide, tota l [Moles/volume] in Serum or Plasma [facility] CARDIAC REHAB II OUT PT ([place], [place]) CARDIAC REHAB II OUTPT ([place], [place]) BIC Routine Nonrheumatic aortic valve 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) Ordered: 05/05/2024 [facility] Work Phone: Comment on above: Ordered: 05/05/2024 Chloride [Moles/volu me] in Serum or Plasma [facility] Chloride [Moles/volu me] in Serum or Plasma [facility] Chloride [Moles/volu me] in Serum or Plasma [facility] Chloride [Moles/volu me] in Serum or Plasma [facility] Creatinine [Moles/volume] in Serum or Plasma [facility] Creatinine [Moles/volume] in Serum or Plasma [facility] Creatinine [Moles/volume] in Serum or Plasma [facility] Creatinine [Moles/volume] in Serum or Plasma [facility] CT Chest WO contrast CT CHEST WO IVCON Radiology Routine Disseminated histoplasmosis 08/30/2023 2:07 PM EDT [facility] Work Phone: End: 09-26-2024 CT Chest WO contrast CT CHEST WO IVCON Radiology Routine Disseminated histoplasmosis 1 Occurrences starting 08/28/2023 until 09/26/2024 [facility] Comment on above: 1 Occurrences starting 08/28/2023 until 09/26/2024 End: 12-29-2022 Ct thorax w/o contrast material CT CHEST WO IVCON Radiology Routine Lung nodules 1 Occurrences starting 11/29/2021 until 12/29/2022 [facility] Work Phone: Comment on above: 1 Occurrences starting 11/29/2021 until 12/29/2022 End: 02-06-2025 CTA Chest vessels and Abdominal vessels and Pelvis vessels W contrast IV CTA CHEST/ABD/PEL (GATED) W IVCON Radiology Routine Nonrheumatic aortic valve stenosis Encounter for preprocedural cardiovascular examination 1 Occurrences starting 01/08/2024 until 02/06/2025 [facility] Comment on above: 1 Occurrences starting 01/08/2024 until 02/06/2025 End: 08-12-2022 ECG COMPLETE ECG COMPLETE ECG Routine Aortic stenosis with bicuspid valve Essential hypertension 1 Occurrences starting 08/12/2021 until 08/12/2022 [facility] Work Phone: Comment on above: 1 Occurrences starting 08/12/2021 until 08/12/2022 End: 01-07-2025 ECG COMPLETE ECG COMPLETE ECG Routine Nonrheumatic aortic valve stenosis Aortic valve disorder 1 Occurrences starting 01/08/2024 until 01/07/2025 [facility] Comment on above: 1 Occurrences starting 01/08/2024 until 01/07/2025 End: 04-15-2025 ECG COMPLETE ECG COMPLETE ECG Routine Nonrheumatic aortic valve stenosis Aortic valve disorder 1 Occurrences starting 04/15/2024 until 04/15/2025 [facility] Work Phone: Comment on above: 1 Occurrences starting 04/15/2024 until 04/15/2025 End: 05-02-2025 ECG COMPLETE ECG COMPLETE ECG Routine Nonrheumatic aortic valve stenosis 1 Occurrences starting 05/02/2024 until 05/02/2025 [facility] Work Phone: Comment on above: 1 Occurrences starting 05/02/2024 until 05/02/2025 End: 08-26-2024 ECHO LIMITED ECHO LIMITED Cardiology Routine Nonrheumatic aortic valve stenosis Mitral valve stenosis, non-rheumatic Essential hypertension Pericardial effusion (noninflammatory) 1 Occurrences starting 08/27/2023 until 08/26/2024 [facility] Work Phone: Comment on above: 1 Occurrences starting 08/27/2023 until 08/26/2024 End: 08-12-2022 Echocardiography ECHO Cardiology Routine Aortic stenosis with bicuspid valve Essential hypertension 1 Occurrences starting 08/12/2021 until 08/12/2022 [facility] Work Phone: Comment on above: 1 Occurrences starting 08/12/2021 until 08/12/2022 End: 08-30-2023 Echocardiography ECHO Cardiology Routine Aortic stenosis with bicuspid valve 1 Occurrences starting 08/29/2022 until 08/30/2023 [facility] Work Phone: Comment on above: 1 Occurrences starting 08/29/2022 until 08/30/2023 End: 01-07-2025 Echocardiography ECHO Cardiology Routine Nonrheumatic aortic valve stenosis Aortic valve disorder 1 Occurrences starting 01/08/2024 until 01/07/2025 [facility] Comment on above: 1 Occurrences starting 01/08/2024 until 01/07/2025 Erythrocyte mean corpuscular volume determination [facility] Glucose [Mass/volume ] in Serum or Plasma [facility] Glucose [Mass/volume ] in Serum or Plasma [facility] Glucose [Mass/volume ] in Serum or Plasma [facility] Glucose [Mass/volume ] in Serum or Plasma [facility] Hematocrit [Volume Fraction] of Blood [facility] Hemoglobin [Mass/vol ume] in Blood [facility] Hemoglobin [Presence ] in Urine [facility] Histoplasma capsulat um Ab [Presence] in Serum by Immune diffusion (ID) HISTOPLASMA AB ID Lab Routine Disseminated histoplasmosis Encounter for long-term (current) use of antibiotics 08/30/2023 1:14 PM EDT [facility] INR in Blood by Coagulation assay [facility] INR in Blood by Coagulation assay [facility] INR in Blood by Coagulation assay [facility] INR in Blood by Coagulation assay [facility] INR in Blood by Coagulation assay [facility] INR in Blood by Coagulation assay [facility] INR in Blood by Coagulation assay [facility] End: 10-27-2022 INR in Platelet poor plasma by Coagulation assay INR (POC) Lab Routine Personal history of DVT (deep vein thrombosis) Once per month for 99 Occurrences starting 11/09/2021 until 10/27/2022 [facility] Work Phone: Comment on above: Once per month for 99 Occurrences starti ng 11/09/2021 until 10/27/2022 End: 11-10-2023 INR in Platelet poor plasma by Coagulation assay INR (POC) Lab Routine Personal history of DVT (deep vein thrombosis) Once per month for 99 Occurrences starting 11/09/2022 until 11/10/2023 [facility] Work Phone: Comment on above: Once per month for 99 Occurrences starti ng 11/09/2022 until 11/10/2023 End: 11-14-2024 INR in Platelet poor plasma by Coagulation assay INR (POC) Lab Routine Personal history of DVT (deep vein thrombosis) Once per month for 99 Occurrences starting 11/15/2023 until 11/14/2024 [facility] Work Phone: Comment on above: Once per month for 99 Occurrences starti ng 11/15/2023 until 11/14/2024 Leukocytes [#/volume ] in Blood [facility] End: 03-14-2022 LIPID PANEL BASIC LIPID PANEL BASIC Lab Routine Essential hypertension 1 Occurrences starting 03/14/2021 until 03/14/2022 [facility] Work Phone: Comment on above: 1 Occurrences starting 03/14/2021 until 03/14/2022 End: 02-06-2025 LUNG DIFFUSION CAPACITY (DLCO) LUNG DIFFUSION CAPACITY (DLCO) PFT Routine Nonrheumatic aortic valve stenosis 1 Occurrences starting 01/08/2024 until 02/06/2025 [facility] Comment on above: 1 Occurrences starting 01/08/2024 until 02/06/2025 LUNG DIFFUSION CAPAC ITY (DLCO) LUNG DIFFUSION CAPACITY (DLCO) PFT Routine Nonrheumatic aortic valve stenosis 03/25/2024 9:28 AM EST [facility] Work Phone: End: 11-26-2023 SABINO SCREENING SABINO SCREENING Radiology Routine Encounter for screening mammogram for breast cancer 1 Occurrences starting 10/27/2022 until 11/26/2023 [facility] Work Phone: Comment on above: 1 Occurrences starting 10/27/2022 until 11/26/2023 End: 11-26-2023 SABINO SCREENING W ALIZE SABINO SCREENING W ALIZE Radiology Routine Encounter for screening mammogram for breast cancer 1 Occurrences starting 10/27/2022 until 11/26/2023 [facility] Work Phone: Comment on above: 1 Occurrences starting 10/27/2022 until 11/26/2023 Mean corpuscular hemoglobin concentration determination [facility] Mean corpuscular hemoglobin determination [facility] Measurement of keton es in urine using dipstick [facility] Measurement of renal function [facility] Measurement of renal function [facility] Measurement of renal function [facility] Measurement of renal function [facility] Microscopic urinalysis [facility] Microscopic urinalysis [facility] Neutrophil count [facility] Neutrophil percent differential count [facility] Organism count, microscopic method [facility] Patient Education [facility] Work Phone: Patient referral [facility] Work Phone: pH of Urine [facility] Platelets [#/volume] in Blood [facility] Potassium [Moles/vol ume] in Serum or Plasma [facility] Potassium [Moles/vol ume] in Serum or Plasma [facility] Potassium [Moles/vol ume] in Serum or Plasma [facility] Potassium [Moles/vol ume] in Serum or Plasma [facility] End: 10-27-2022 PT panel - Platelet poor plasma by Coagulation assay PROTHROMBIN TIME/PT Lab STAT Personal history of DVT (deep vein thrombosis) Once per month for 99 Occurrences starting 11/09/2021 until 10/27/2022 [facility] Work Phone: Comment on above: Once per month for 99 Occurrences starti ng 11/09/2021 until 10/27/2022 End: 11-09-2023 PT panel - Platelet poor plasma by Coagulation assay PROTHROMBIN TIME/PT Lab STAT Personal history of DVT (deep vein thrombosis) Once per month for 99 Occurrences starting 11/09/2022 until 11/09/2023 [facility] Work Phone: Comment on above: Once per month for 99 Occurrences starti ng 11/09/2022 until 11/09/2023 End: 11-14-2024 PT panel - Platelet poor plasma by Coagulation assay PROTHROMBIN TIME Lab STAT Personal history of DVT (deep vein thrombosis) Once per month for 99 Occurrences starting 11/15/2023 until 11/14/2024 [facility] Comment on above: Once per month for 99 Occurrences starti ng 11/15/2023 until 11/14/2024 Red blood cell count [facility] Red cell distributio n width determination [facility] Sodium [Moles/volume ] in Serum or Plasma [facility] Sodium [Moles/volume ] in Serum or Plasma [facility] Sodium [Moles/volume ] in Serum or Plasma [facility] Sodium [Moles/volume ] in Serum or Plasma [facility] Specific gravity of Urine [facility] End: 02-06-2025 SPECT Heart for infarct W Tc-99m PYP IV NM SPECT/CT CARDIAC AMYLOID Radiology Routine Nonrheumatic aortic valve stenosis 1 Occurrences starting 01/08/2024 until 02/06/2025 [facility] Comment on above: 1 Occurrences starting 01/08/2024 until 02/06/2025 End: 02-06-2025 SPIROMETRY BASELINE ONLY SPIROMETRY BASELINE ONLY PFT Routine Nonrheumatic aortic valve stenosis 1 Occurrences starting 01/08/2024 until 02/06/2025 [facility] Work Phone: Comment on above: 1 Occurrences starting 01/08/2024 until 02/06/2025 SPIROMETRY BASELINE ONLY SPIROME TRY BASELINE ONLY PFT Routine Nonrheumatic aortic valve stenosis 03/25/2024 9:28 AM EST [facility] Work Phone: Total protein measurement [facility] Urea nitrogen [Mass/volume] in Serum or Plasma [facility] Urea nitrogen [Mass/volume] in Serum or Plasma [facility] Urea nitrogen [Mass/volume] in Serum or Plasma [facility] Urea nitrogen [Mass/volume] in Serum or Plasma [facility] Urinalysis, blood, qualitative [facility] Urine dipstick for glucose [facility] Urine dipstick for leukocyte esterase [facility] Urine dipstick for nitrite [facility] Urine dipstick for protein [facility] Urine examination [facility] Urine microscopy: epithelial cells [facility] Urine microscopy: epithelial cells [facility] Urine microscopy: re d cells [facility] Urine Microscopy: wh ite cells [facility] Urobilinogen [Presen ce] in Urine [facility] End: 07-09-2024 US Lower extremity vein US LEG VEIN DVT UNL VAS LAB Vascular Lab STAT Acute pain of right knee Pain and swelling of right lower leg 1 Occurrences starting 07/10/2023 until 07/09/2024 [facility] Work Phone: Comment on above: 1 Occurrences starting 07/10/2023 until 07/09/2024 White blood cell count [facility] End: 02-06-2025 XR Chest PA and Lateral XR CHEST 2V FRONTAL/LAT Radiology Routine Nonrheumatic aortic valve stenosis 1 Occurrences starting 01/08/2024 until 02/06/2025 [facility] Comment on above: 1 Occurrences starting 01/08/2024 until 02/06/2025 End: 05-15-2025 XR Chest PA and Lateral XR CHEST 2V FRONTAL/LAT Radiology Routine Nonrheumatic aortic valve stenosis Aortic valve disorder 1 Occurrences starting 04/15/2024 until 05/15/2025 [facility] Comment on above: 1 Occurrences starting 04/15/2024 until 05/15/2025 End: 08-16-2024 XR Knee - right 4 Views XR KNEE GENERAL 4V AP BOTH/PA BOTH/LAT/MERC RIGHT Radiology Routine Right knee pain, unspecified chronicity 1 Occurrences starting 07/18/2023 until 08/16/2024 [facility] Work Phone: Comment on above: 1 Occurrences starting 07/18/2023 until 08/16/2024 End: 08-16-2024 XR Lower extremity - bilateral AP W standing XR LEG FRONTAL HIP TO ANKLE MECHANICAL AXIS Radiology Routine Right knee pain, unspecified chronicity 1 Occurrences starting 07/18/2023 until 08/16/2024 [facility] Comment on above: 1 Occurrences starting 07/18/2023 until 08/16/2024 [facility] Immunizations Immunization Date Immunization Notes Care Provider Fa cili 11-22-2023 influenza, high dose seasonal, preservative-free Geno Hart MD Work Phone: [facility] 11-22-2023 influenza virus vacc ine, unspecified formulation Geno Hart MD Work Phone: [facility] 08-01-2023 respiratory syncytia l virus (RSV) vaccine, adjuvanted (AREXVY) Ilda Miller RN Work Phone: [facility] 08-01-2023 zoster vaccine recombinant Claudine Durán MD Work Phone: [facility] 01-04-2023 COVID-19 vaccine, ag e 12+ yr, season (PFIZER-Awesome.meNTDocurated) Jimbo Swanson SUPERVISOR IRRIGATION.INDUSTRIAL CHEMISTRY TEACHER Work Phone: [facility] Work Phone: 10-27-2022 influenza (HD-IIV4) vaccine, age 65+ yr, high dose, quadrivalent, PF (FLUZONE HIGH-DOSE) Jimbo Swanson SUPERVISOR IRRIGATION.INDUSTRIAL CHEMISTRY TEACHER Work Phone: [facility] Work Phone: 10-27-2022 influenza virus vacc ine, unspecified formulation Anticoag Wstr Work Phone: [facility] 11-18-2021 influenza, high dose seasonal, preservative-free Ilda Miller RN Work Phone: [facility] 11-10-2021 COVID-19 booster vaccine, age 12+ yr, bivalent (PFIZER-BIONTECH) Jimbo Swanson SUPERVISOR IRRIGATION.INDUSTRIAL CHEMISTRY TEACHER Work Phone: [facility] Work Phone: 11-10-2021 influenza, high-dose , quadrivalent vaccine (FLUZONE HIGH DOSE QUADRIVALENT) Jimbo Sanmaría ROSALES.INDUSTRIAL CHEMISTRY TEACHER Work Phone: [facility] Work Phone: 07-11-2021 Covid (Pfizer) Dr. Claudine Martinez [facility] Work Phone: [facility] 07-11-2021 COVID-19 vaccine, ag e 12+ yr (PFIZER-BIONTECH - ARIAS TOP) [facility] Work Phone: [facility] 11-21-2020 COVID-19 original vaccine, age 12+ yr, monovalent (PFIZER-BIONTECH - PURPLE TOP) Claudine Durán MD Work Phone: [facility] 11-21-2020 influenza, high dose seasonal, preservative-free Ilda Miller RN Work Phone: [facility] 11-09-2020 COVID-19 vaccine, ag e 12+ yr (PFIZER-BIONTECH - PURPLE TOP) [facility] 11-09-2020 influenza, high-dose , quadrivalent vaccine (FLUZONE HIGH DOSE QUADRIVALENT) [facility] Work Phone: 05-13-2020 COVID-19 vaccine, ag e 12+ yr (PFIZER-BIONTECH - PURPLE TOP) [facility] Work Phone: 04-22-2020 COVID-19 vaccine, ag e 12+ yr (PFIZER-BIONTECH - PURPLE TOP) [facility] Work Phone: 11-06-2019 influenza, high-dose , quadrivalent vaccine (FLUZONE HIGH DOSE QUADRIVALENT) [facility] Work Phone: 11-06-2019 tetanus and diphther ia toxoids, adsorbed, preservative free, for adult use (2 Lf of tetanus toxoid and 2 Lf of diphtheria toxoid) Dr. Claudine Durán Work Phone: [facility] 11-06-2019 tetanus and diphther ia toxoids, adsorbed, preservative free, for adult use (5 Lf of tetanus toxoid and 2 Lf of diphtheria toxoid) [facility] Work Phone: 11-03-2019 influenza, high dose seasonal, preservative-free Ilda Miller RN Work Phone: [facility] 11-28-2018 zoster vaccine recombinant [facility] 11-25-2018 influenza, high dose seasonal, preservative-free Ilda Miller RN Work Phone: [facility] 10-26-2018 Influenza, high dose seasonal Dr. Claudine Durán MD Work Phone: [facility] 10-26-2018 influenza, high dose seasonal, preservative-free [facility] 07-23-2018 zoster vaccine recombinant [facility] 11-27-2017 Influenza, high dose seasonal Dr. Claudine Durán MD Work Phone: [facility] 11-27-2017 influenza, high dose seasonal, preservative-free [facility] 02-07-2017 influenza virus vacc ine, live, attenuated, for intranasal use Ilda Miller RN Work Phone: [facility] 02-07-2017 pneumococcal polysaccharide vaccine, Lachelle Durán MD Work Phone: [facility] 01-31-2017 Influenza, high dose seasonal Dr. Claudine Durán MD Work Phone: [facility] 01-31-2017 influenza, high dose seasonal, preservative-free [facility] 12-13-2016 pneumococcal polysaccharide vaccineLachelle MD Work Phone: [facility] 11-28-2016 pneumococcal polysaccharide vaccineLachelle MD Work Phone: [facility] 12-13-2015 influenza, high dose seasonal, preservative-free [facility] 11-10-2014 Influenza, high dose seasonal Dr. Claudine Durán MD Work Phone: [facility] 11-10-2014 influenza, high dose seasonal, preservative-free [facility] 03-30-2014 pneumococcal conjuga te vaccine, 13 valent [facility] 12-08-2013 influenza virus vacc ine, live, attenuated, for intranasal use Ilda Miller RN Work Phone: [facility] 12-08-2013 pneumococcal conjuga te vaccine, 7 valent Ilda Miller RN Work Phone: [facility] 12-08-2013 pneumococcal polysaccharide vaccine, 23 valrandall Durán MD Work Phone: [facility] 11-24-2013 influenza, injectabl e, quadrivalent, preservative free Dr. Claudine Durán Work Phone: [facility] 11-24-2013 influenza, seasonal, injectable [facility] 03-24-2013 pneumococcal polysaccharide vaccine, 23 valent [facility] 11-18-2012 influenza virus vacc ine, unspecified formulation [facility] Work Phone: 11-10-2011 influenza virus vacc ine, unspecified formulation [facility] 11-23-2010 influenza virus vacc ine, unspecified formulation [facility] 10-07-2009 tetanus toxoid, redu amarilis diphtheria toxoid, and acellular pertussis vaccine, adsorbed [facility] 10-29-2008 influenza virus vacc ine, unspecified formulation [facility] 01-10-2008 influenza virus vacc ine, whole virus Ilda Miller RN Work Phone: [facility] 01-10-2008 influenza, injectabl e, quadrivalent, preservative free Dr. Claudine Durán Work Phone: [facility] 07-09-2007 tuberculin skin test ; purified protein derivative solution, intradermal Jimbo Swanson SUPERVISOR IRRIGATION.INDUSTRIAL CHEMISTRY TEACHER Work Phone: [facility] 06-24-2007 tuberculin skin test ; purified protein derivative solution, intradermal Jimbo Swanson SUPERVISOR IRRIGATION.INDUSTRIAL CHEMISTRY TEACHER Work Phone: [facility] 09-22-1999 diphtheria and tetan us toxoids, adsorbed for pediatric use Nara Ilan [facility] Work Phone: Payers Date Payer Category Payer Self-pay [id number] 2021 Medicare AETNA MEDICARE A ETNA MEDICARE PPO [id number] 2021-Present [phone] [address] [place] [address] PPO [id number] 2021 Medicare AETNA MEDICARE A ETNA MEDICARE PPO [id number] 2021-Present [phone] [address] [place] [address] PPO [id number] 2021 Medicare (Managed Care) [employer] [place] [facility] [id number] 2021 Private Health Insurance [facility] [id number] 2011 Unknown [id number] 1945 Unknown [id number] Medicare [id number] Private Health Insurance Unknown [id number] Unknown [id number] Unknown [id number] Unknown [id number] Unknown [id number] Unknown [id number] Unknown [id number] Unknown [id number] Unknown [id number] Unknown [id number] Unknown [id number] Unknown [id number] Social History Date Type Detail Facility Start: 08-28-2019 End: 10-11-2023 Tobacco smoking status NHIS Ex-smoker [facility] Start: 02-19-1979 End: 02-19-1989 History of tobacco use Current smoker [facility] Start: 02-19-1979 End: 02-19-1989 History of tobacco use Cigarette Smoker [facility] Start: 05-03-2021 End: 07-22-2024 Alcohol intake Current drinker of alcohol (finding) [facility] Start: 11-28-2019 End: 03-06-2022 History SDOH Alcohol Frequency 2 [facility] Start: 11-28-2019 End: 03-06-2022 History SDOH Alcohol Std Drinks 1 [facility] Start: 03-31-2019 End: 03-06-2022 History SDOH Social Connections Rastafarian 3 [facility] Start: 03-31-2019 End: 03-06-2022 History SDOH Social Connections Living 4 [facility] Start: 07-28-2019 End: 03-06-2022 History SDOH Physical Activity DPW 5 [facility] Start: 03-31-2019 Education 18 [facility] Start: 08-28-2019 End: 11-10-2021 Tobacco Comment Late heavy smoker. [facility] Start: 1945 Sex Assigned At Female [facility] Start: 05-02-2021 End: 12-31-2021 Exposure to SARS-CoV-2 (event) Not sure [facility] Work Phone: Start: 12-11-2017 End: 04-05-2023 Tobacco smoking status MIIS Unknown if ever smoked [facility] Start: 08-28-2019 End: 06-22-2022 Cigarettes smoked current (pack per day) - Reported 1 [facility] Start: 08-28-2019 End: 10-11-2023 Tobacco use and exposure Smokeless tobacco non-user [facility] Start: 03-06-2022 End: 06-22-2022 Social connection and isolation panel [facility] Do you belong to any clubs or organizations such as mosque groups, unions, fraternal or athletic groups, or school groups? Yes [facility] Are you now , , , , never or living with a partner? [facility] How often to you hav e a drink containing alcohol? Monthly or less [facility] How many standard dr inks containing alcohol do you have on a typical day? 1 or 2 [facility] How often do you hav e 6 or more drinks on 1 occasion? Never [facility] How hard is it for y ou to pay for the very basics like food, housing, medical care, and heating Not hard at all [facility] Do you feel stress - tense, restless, nervous, or anxious, or unable to sleep at night because your mind is troubled all the time - these days [OSQ] Not at all [facility] (I/We) worried wheth er (my/our) food would run out before (I/we) got money to buy more. Never true [facility] In the past 12 month s, was there a time when you were not able to pay the mortgage or rent on time? No [facility] Start: 03-04-2019 Gender identity Identifies as female gender (finding) [facility] Start: 03-04-2019 Sexual orientation Heterosexual (finding) [facility] Do you feel stress - tense, restless, nervous, or anxious, or unable to sleep at night because your mind is troubled all the time - these days [OSQ] To some extent [facility] How hard is it for y ou to pay for the very basics like food, housing, medical care, and heating Not very hard [facility] Start: 2024 Sex Female (finding) [facility] Medical Equipment Procedure Code Equipment Code Equipment Origin al Text Equipment Identifier Dates Navitor With Radiopaque Markers, 25mm - [id number] Start: 05-02-2024 Goals Date Patient Goal Desired Activity /State Personal health goal Comment on above: Formatting of this n ote might be different from the original. Walk 10 miles per day Personal health goal Comment on above: Formatting of this n ote might be different from the original. Maintain Lung function and health Personal health goal Personal health goal Comment on above: Formatting of this n ote might be different from the original. Patient has the following Chronic Obstructive Pulmonary Disease goals: Two PCP visits annually and Pulmonology visit annually Education provided and reviewed with patient -ongoing education: COPD Core Education Packet, COPD Action Plan/Zones, Understanding COPD, How to use MDI, and COPD PAN Education - COPD About Patient will meet these goals by 02/19/24 (describe interventions done by PCC) Formatting of this n ote might be different from the original. Patient has the following High Blood Pressure/Hypertension Goals: Two PCP Visits annually, Nurse / pharmacist / SHELTON visit within 4 weeks after PCP visit with uncontrolled BP (>140/90), and BMP annually HTN Education given and reviewed with patient --ongoing education: Medication compliance education, Advise / educate patient to ask for repeat BP check at any appointment if first BP is >140/90, Checking your Blood Pressure at Home, High Blood Pressure: Talking to Your Health Care Provider, High Blood Pressure - When to Seek Emergency Care, High Blood Pressure and Nutrition, Your Sodium-Controlled Diet, and Hypertension Treatment Overview Patient will meet these goals by 02/19/24 (describe interventions done by PCC) Personal health goal Comment on above: Formatting of this n ote might be different from the original. Patient has the following general goals: Two PCP visits annually Patient Stated goal: Be as healthy as I can be Patient will meet these goals by 02/19/24 (describe interventions done by PCC) Personal health goal Personal health goal Comment on above: Formatting of this n ote might be different from the original. Patient has the following general goals: Two PCP visits annually Patient Stated goal: Stay alive and have less arthritis pain in LE, hands. Patient will meet these goals by 02/19/24 (describe interventions done by PCC) Keep medical appointments, take all medications as prescribed. Comment on above: Formatting of this n ote might be different from the original. Walk 10 miles per day Comment on above: Formatting of this n ote might be different from the original. Maintain Lung function and health Functional Status Date Assessment Result Facility 05-03-2024 Are you deaf, or do you have serious difficulty hearing No 05/03/2024 11:03 AM Doreen Kohler, PAULA No [facility] 05-03-2024 Are you blind, or do you have serious difficulty seeing, even when wearing glasses No 05/03/2024 11:03 AM Doreen Kohler, PAULA No [facility] 05-03-2024 Do you have serious difficulty walking or climbing stairs No 05/03/2024 11:03 AM Doreen Kohler, PAULA No [facility] 05-03-2024 Do you have difficul ty dressing or bathing No 05/03/2024 11:03 AM Doreen Kohler, PAULA No [facility] 05-03-2024 Because of a physica l, mental, or emotional condition, do you have difficulty doing errands alone such as visiting a physician's office or shopping No 05/03/2024 11:03 AM Doreen Kohler, PAULA No [facility] 03-24-2024 Are you deaf, or do you have serious difficulty hearing No 03/24/2024 3:46 PM Karl Browne RN No [facility] 03-24-2024 Are you blind, or do you have serious difficulty seeing, even when wearing glasses No 03/24/2024 3:46 PM Karl Browne RN No [facility] 03-24-2024 Do you have serious difficulty walking or climbing stairs No 03/24/2024 3:46 PM Karl Browne RN No [facility] 03-24-2024 Do you have difficul ty dressing or bathing No 03/24/2024 3:46 PM Karl Browne RN No [facility] 03-24-2024 Because of a physica l, mental, or emotional condition, do you have difficulty doing errands alone such as visiting a physician's office or shopping No 03/24/2024 3:46 PM Karl Browne RN No [facility] 04-30-2023 Functional status Ambulates;Bedr est;Bathro om [facility] Work Phone: 04-16-2023 Functional status Ambulates [facility] Work Phone: 04-05-2023 Functional status Ambulates;Bath room [facility] Work Phone: 03-27-2023 Functional status Up ad rupal [facility] Work Phone: Mental Status Date Assessment Result Facility 05-03-2024 Because of a physica l, mental, or emotional condition, do you have serious difficulty concentrating, remembering, or making decisions No 05/03/2024 11:03 AM Doreen Kohler RN No [facility] 03-24-2024 Because of a physica l, mental, or emotional condition, do you have serious difficulty concentrating, remembering, or making decisions No 03/24/2024 3:46 PM Karl Browne RN No [facility] 04-30-2023 Cognitive function Voice/Name [facility] Work Phone: 04-24-2023 Cognitive function Appropriate [facility] Work Phone: 04-16-2023 Cognitive function Voice/Name;Touch/Shaki ng [facility] Work Phone: 04-05-2023 Cognitive function Voice/Name [facility] Work Phone: 03-31-2023 Cognitive function Level Of Cons ciousness Awake;Alert;Appropriate;Fol lows Commands [facility] Work Phone: 03-27-2023 Cognitive function Appropriate;Cooperativ e [facility] Work Phone: 03-26-2023 Cognitive function Voice/Name [facility] Work Phone: Clinical Notes 03-08-2018 to 08-21-2024 Michael Braxton MD - 08/21/2024 12:46 PM EDTGMelissa brewer RN - 08/21/2024 12:24 PM EDTTelephone Encounter - Geni Cintron LPN - 08/18/2024 2:11 PM EDTPatient Instructions Note Date & Type Note Facility 08-21-2024 History of Presen t illness Narrative INR low with patient who missed a dose of coumadin. Continue current regimen. Recheck INR in 1 week. patient had inr completed at [facility] patients inr is 1.2 (patients inr range is 1.7-2.2) patient is currently taking 5mg Tues,Thurs and 6mg all other days patients last dose change was on 08/06/24 due to a low level of 1.4 (dose at that time was 5mg Tues,Thurs,Sat and 6mg all other days) patient has had no changes in medication and patient missed a dose and no change in diet FYI - results being sent to doc director of clinical applications due to pcp and team members are out of the office Advised patient to continue on the same dose(s) and that they would only be contacted regarding dosage and follow up instructions after review with provider, if a change is needed. Written instructions given and patient verbalized understanding. Presently scheduled in 2 weeks (09/03/24) for follow up INR since level is slightly low but most likely due to the missed dose documented in this encounter [facility] 08-18-2024 Telephone encount er Note Prescription Refill Information The patient has been identified by name and date of : Yes Caregiver verified no other encounters exist for this prescription request: Yes Caregiver confirmed with patient/requestor that no other refills are due, in the near future, with this provider at this time: Yes The last office visit in the department: 05/20/24 Does the patient have a future office visit with this provider/department: Yes 05/26/25 Requested Prescriptions Pending Prescriptions Disp Refills potassium chloride ER (KLOR-CON M20) 20 mEq tablet 180 tablet 3 Sig: Take 1 tablet by mouth two times a day. Geni Cintron LPN August 18, 2024 2:11 PM [facility] 08-18-2024 Miscellaneous Notes Formattin g of this note is different from the original. Prescription Refill Information The patient has been identified by name and date of : Yes Caregiver verified no other encounters exist for this prescription request: Yes Caregiver confirmed with patient/requestor that no other refills are due, in the near future, with this provider at this time: Yes The last office visit in the department: 05/20/24 Does the patient have a future office visit with this provider/department: Yes 05/26/25 Requested Prescriptions Pending Prescriptions Disp Refills potassium chloride ER (KLOR-CON M20) 20 mEq tablet 180 tablet 3 Sig: Take 1 tablet by mouth two times a day. Geni Cintron LPN August 18, 2024 2:11 PM documented in this encounter [facility] 08-06-2024 History of Presen t illness Narrative pcp agrees with information patient had inr completed at [facility] patients inr is 1.4 (patients inr range is 1.7-2.2) patient is currently taking 5mg Tues,Thurs,Sat and 6mg all other days patients last dose change was on 07/21/24 due to a low level of 1.4 (dose at that time was 6mg Tues,Thurs,Sat and 5mg all other days) patient has had no changes in medication except for coumadin and no missed doses and no change in diet recommend: patient change coumadin to 5mg Tues,Thurs and 6mg all other days and recheck in 2 weeks patient has been scheduled for a 2 week follow up inr on 08/21/24 please review and advise on recommendation patient only needs called if provider does not agree with recommendation documented in this encounter [facility] 07-29-2024 History of Presen t illness Narrative Value based Operations Care Management Heart Failure Guideline Directed Medical Therapy (GDMT) Program Provider Action / FYI: Chart Review Guideline Directed Medical Therapy (GDMT) Program Last HF admission: NA GDMT Score: 1 Last Echocardiogram: 07/22/2024 Ejection Fraction: 61% Basic Metabolic Panel (BMP): 07/22/2024 Estimated Glomerular Filtration Rate (eGFR): 07/22/2024-93 N-terminal pro B-type natriuretic peptide (NT proBNP): 07/22/2024-315 Heart Failure (HF) Diagnosis: 02/29/2024 Heart Failure Status: HFpEF - HF diagnosis, EF >=40%, non-dialysis Action Taken: GDMT score is <=6 and EF >40% - Continued Management via [facility] Jane Rick RN July 29, 2024 10:11 AM documented in this encounter [facility] 07-22-2024 Lalitha Chester Brissa, SUPERVISOR IRRIGATION.FINANCIAL ANALYSIS ADVISOR - 07/22/2024 2:32 PM EDT We discussed your post-TAVR follow-up: - Your EKG today showed sinus rhythm with some premature atrial contractions, which are not concerning. - Your echocardiogram and lab results are still pending. I will review these and send you a Krave-N message with the results once they are available. We discussed your medications: - Continue taking Metoprolol Succinate as prescribed. This was started recently to help manage your heart rate during cardiac rehab. - You are no longer taking Aldactone (spironolactone) or baby aspirin, so these have been removed from your medication list. - Continue taking Gabapentin twice daily, Methotrexate (4 tablets every Sunday), Sulfasalazine (2 tablets twice daily), Spiriva inhaler, Wixela inhaler, and Coumadin as prescribed. - You mentioned having hydrocodone with Tylenol prescribed for pain but have not taken it. If you decide to use it, please follow the instructions carefully and use it sparingly due to its opioid content. We discussed your symptoms and cardiac rehab: - You reported no recent issues with shortness of breath, chest pain, palpitations, or leg swelling. - Your blood pressure has been elevated at times during cardiac rehab, but this is being monitored. Continue to keep an eye on your blood pressure and heart rate during rehab. - You are tolerating cardiac rehab well and should continue attending as planned. We discussed your follow-up care: - Routine echocardiograms are important to monitor your mitral valve. If your echocardiogram today shows no significant changes and you remain symptom-free, you will need another echocardiogram in one year. - You can follow up with a local wood products manufacturer in [place] for your annual echocardiogram and routine care. If you prefer, you can also follow up at another [facility] or return here for your valve care. - as long as ECHO looks good today, you can follow-up with repeat ECHO in 1 years time - If you experience new or worsening symptoms, such as shortness of breath, chest pain, or leg swelling, please contact your wood products manufacturer or our office immediately. Next steps: - Attend your echocardiogram appointment today as scheduled. - I will contact you via Krave-N with your echocardiogram and lab results once they are available. - Ensure you have a follow-up plan with a wood products manufacturer for your annual echocardiogram and routine care. Please let us know if you have any questions or concerns. Dr Saeed O: [phone] F: [phone] It was my pleasure to participate in the management of your care! Brissa Chester, MSN, SUPERVISOR IRRIGATION-FINANCIAL ANALYSIS ADVISOR documented in this encounter [facility] 07-22-2024 History of Presen t illness Narrative Images from the original note were not included. [facility] [place] [facility] Department of Cardiovascular Medicine SECTION OF INTERVENTIONAL CARDIOLOGY OUTPATIENT VISIT DATE July 22, 2024 OUTPATIENT VISIT TYPE ESTABLISHED FOLLOW UP Primary Metal Fabricator Welder: Juvencio Saeed MD Chief Complaint: Patient here for cardiac follow up evaluation History of Present Illness: Patient is a 79 year old female who presents for follow up visit today. Past medical history includes: Valvular Heart Disease Aortic stenosis (bicuspid) S/p TAVR 05/02/24 Dr Saeed MS (moderate) 2+ TR HTN Disseminated histoplasmosis (ongoing treatment with undetectable histo antigen 12/19) VTE s/p IVC filter (warfarin) GIB in July from duodenal ulcer s/p cautery RA (but off treatment d/t histoplasmosis) COPD Patient underwent successful TF TAVR via 14 Fr R WORKING FOREMAN with a 25 mm Navitor at nominal using the 14 Fr FlexNav In-line sheath Delivery system; pre-dilated with a 22 [address] ZMED balloon [address] Dr Saeed on 05/02/24. Patient was seen for follow-up in [facility] on 05/05/24. Patient was reportedly doing well. She is now here for >4 week follow-up. The patient reports feeling well overall, with no recent episodes of dyspnea, chest pain, palpitations, or leg edema. She notes that her leg swelling, which was intermittent over the past year, has resolved. She denies any recent episodes of leg swelling. She is currently participating in cardiac rehabilitation and enjoys the program. She mentions that her heart rate has been elevated during exercise, prompting the initiation of metoprolol succinate by a wood products manufacturer at [facility] a few days ago. She also reports occasional elevated blood pressure readings during rehab sessions. She denies chest pain, shortness of breath, dyspnea on exertion, orthopnea, PND, palpitations, lightheadedness, syncope, claudication, leg swelling, cough, and wheezing PAST CARDIAC HISTORY: See HPI PAST MEDICAL HISTORY Diagnosis Date Anemia Bone marrow involvement with histoplasmosis Aortic stenosis COPD (chronic obstructive pulmonary disease) ([facility]) Disseminated histoplasmosis Colitis, immunosuppression, 01/2018. Diverticulosis of colon (without mention of hemorrhage) Diverticulosis DVT, recurrent, lower extremity, acute ([facility]) 12/10/2014 GERD (gastroesophageal reflux disease) Hiatal hernia 02/25/2018 Hypertension Lung nodule Macular degeneration Mitral stenosis 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 rheumatoid factor ([facility]) 03/07/2015 Dr. Hurley ([facility]) Tricuspid regurgitation PAST SURGICAL HISTORY Procedure Laterality Date COLONOSCOPY [...] SPINE FUSN,POST INTERBODY 2012 Dr. Armando at [facility]. Diskectomy and laminectomy PAST SURGICAL HISTORY OF 03/07/1999 removal facial lesion PAST SURGICAL HISTORY OF 08/17/2014 excision soft tissue mass left index finger TONSILLECTOMY PRIMARY/SECONDARY <AGE 14 TRANSCATH RETRIEVAL,PERCUT 12/28/2006 Social History Tobacco Use Smoking status: Former Current packs/day: 0.00 Average packs/day: 1 pack/day for 10.0 years (10.0 ttl pk-yrs) Types: Cigarettes Start date: 02/19/1979 Quit date: 02/19/1989 Years since quittin.4 Smokeless tobacco: Never Tobacco comments: Late heavy smoker. Vaping Use Vaping status: Never Used Substance Use Topics Alcohol use: Yes Comment: occasional Drug use: No FAMILY HISTORY Problem Relation Age of Onset Cancer Mother brain ALLERGIES Allergen Reactions Penicillins Hives MEDICATIONS: Current Outpatient Medications Medication Sig METOPROLOL SUCCINATE ORAL Take 25 mg by mouth once daily. tiotropium bromide (SPIRIVA RESPIMAT) 2.5 mcg/actuation inhaler Inhale 2 puffs as instructed once daily. gabapentin (NEURONTIN) 300 mg capsule Take 1 capsule by mouth two times a day. fluticasone (FLONASE) 50 mcg/actuation nasal spray Use 1 spray in each nostril once daily. albuterol HFA (PROAIR HFA) 90 mcg/actuation inhaler Inhale 2 Puffs as instructed every 4 hours as needed. fluticasone-salmeterol (WIXELA INHUB) 250-50 mcg/dose inhaler Inhale 1 Puff as instructed two times a day. warfarin (COUMADIN) 1 mg tablet Take 6 mg and Sunday and5 mg all other days or as directed. methotrexate 2.5 mg tablet Take 4 tablets by mouth every Sunday. sulfaSALAzine EC (AZULFIDINE EN) 500 mg EC tablet Take 1,000 mg by mouth two times a day. warfarin (COUMADIN) 5 mg tablet Take 1 tablet by mouth once daily. or as directed diclofenac (VOLTAREN) 1 % topical gel Apply 2 g to affected area four times daily. Both knees potassium chloride ER (KLOR-CON M20) 20 mEq tablet Take 1 tablet by mouth two times a day. FOLIC ACID ORAL Take by mouth. vit A,C,C-Jmhm-[place] (OCUVITE PRESERVISION) 2,148 mcg-113 mg-45 mg-17.4mg tab Take 2 tablets by mouth daily with breakfast. Cholecalciferol, Vitamin D3, 1,000 unit ORAL Cap Take 1 capsule by mouth once daily. omega-3 fatty acids/vitamin e(FISH OIL 1,000 MG CAP) Take one(1) capsule daily. THERAPEUTIC MULTIVITAMIN TAB Take one(1) tablet daily. No current facility-administered medications for this visit. REVIEW OF SYSTEMS: PAIN ASSESSMENT: Denies complaints of acute or chronic pain GENERAL: Denies fevers, chills, night sweats, weight gain or loss HEENT: Denies changes in vision, hearing, nose bleeds, or bleeding gums NECK: Denies neck pain, stiffness, or swelling, or swollen lymph nodes RESPIRATORY: See HPI CARDIOVASCULAR: See HPI GI: Denies difficulty swallowing, nausea, vomiting, diarrhea, constipation, or melena : Denies frequency, urgency, or burning, and hematuria MUSCULOSKELETAL: Denies joint pain, swelling, or stiffness SKIN: Denies rashes, lesions, or tears PSYCH: Denies sleep disturbance, mood disorder, or recent psychosocial stressors HEMATOLOGY/LYMPHOLOGY: Denies prolonged bleeding or easy bruising ENDOCRINE: Denies heat or cold intolerance, polydipsia or polyphagia NEURO: Denies syncope, seizures, or numbness or tingling of hands or feet PHYSICAL EXAMINATION: BP 140/65 Pulse 75 Resp 18 Ht 5' 2" (1.58m) Wt 129 lb 6.4 oz (58.7kg) SpO2 98% BMI 23.66 kg/(m^2). General: No acute distress Skin: warm, dry, and intact; no rashes or lesions noted Neck: No JVD Lungs: Breath sounds clear, respiratory effort normal Heart: Regular rhythm, no murmur, no edema noted Abdomen: Soft nontedner, +BSx4 Extremities: Distal pulses intact, MAEx4 Musculoskeletal: No deformities Neurologic/Psychiatric: Oriented to time, place & person and no gross focal neurologic deficits Sensory Examination: Neuro/Sensation is intact throughout Pulses/Signals: intact throughout CARDIOVASCULAR MEDICINE TESTING: Electrocardiogram: SINUS RHYTHM WITH PREMATURE ATRIAL COMPLEXES MICHELLE 154 QRS 82 Laboratory Testing: In process Echocardiogram: In process Last ECHO Result Conclusion ECHO Collected: 05/02/2024 1:58 PM (Final result) Impression: CONCLUSIONS: - Exam indication: s/p TAVR - The left ventricle is normal in size. Left ventricular systolic function is normal. EF = 62 5% (2D biplane) - The right ventricle is normal in size. Right ventricular systolic function is normal. - There is moderate mitral valve stenosis. The peak gradient is 16 mmHg and the mean gradient is 8 mmHg. Prior Pk/Mn gradient of 18/9 mmHg obtained at a HR of 76 bpm. Today's gradients obtained at a HR of 79 bpm. - There is moderate (2+) tricuspid valve regurgitation. - S/P transcatheter aortic valve replacement. Navitor prosthetic aortic valve (size #25). There is trace aortic valve regurgitation. The peak gradient is 12 mmHg, the mean gradient is 6 mmHg and the dimensionless valve index is 0.77. Prior OR peak and mean gradient of 13/6 mmHg. - Estimated right ventricular systolic pressure is 38 mmHg consistent with mild pulmonary hypertension. Estimated right atrial pressure is 15 mmHg based on IVC assessment. Prior RVSP= 47 mmHg. - Exam was compared with the prior echocardiographic exam performed on 01/18/2024 and 05/02/2024 (OR Echo). Now s/p TAVR. * * * Final * * * I have personally reviewed the Electrocardiogram, Laboratory Testing, and Echocardiogram. IMPRESSION: Haydee Bustamante is an 79 year old female with pmhx of: Valvular Heart Disease Aortic stenosis (bicuspid) S/p TAVR 05/02/24 Dr Saeed MS (moderate) 2+ TR HTN Disseminated histoplasmosis (ongoing treatment with undetectable histo antigen 12/19) VTE s/p IVC filter (warfarin) GIB in July from duodenal ulcer s/p cautery RA (but off treatment d/t histoplasmosis) COPD PLAN AND RECOMMENDATIONS: Aggressive risk factor modification as appropriate. -- BP Goal < 140/90 with nonpharmacologic and medical therapy -- LDL goal 50% reduction AND level < 55-70 mg/dL using max tolerated statin +/- adjuvant therapy -- HbA1C < 7% -- Healthy diet and exercise +/- weight loss if appropriate. -- Smoking and alcohol abstinence/cessation, if applicable Follow up/Disposition: 1. S/P TAVR (transcatheter aortic valve replacement) (Z95.2) Nonrheumatic aortic valve stenosis (I35.0) Patient underwent TAVR on May [address] Jackson. Currently asymptomatic with no reports of dyspnea, chest pain, palpitations, or edema. EKG today shows sinus rhythm with premature atrial contractions, no acute concerns. Echocardiogram and labs are pending. - continue cardiac rehab as scheduled locally - Await echocardiogram and lab results; will communicate findings via [employer]. - Recommended annual echocardiogram follow-up; patient may choose to follow up locally or at [facility]. 2. Nonrheumatic mitral valve stenosis (I34.2) Previously diagnosed; currently asymptomatic. No murmur auscultated on exam today. - Monitor for symptoms of valvular dysfunction. - Routine echocardiograms to assess valve degeneration. 3. Nonrheumatic tricuspid valve regurgitation (I36.1) No current symptoms reported. No murmur auscultated on exam today. - Monitor for symptoms of valvular dysfunction. - Routine echocardiograms to assess valve function. 4. Essential hypertension (I10) BP readings have been elevated during cardiac rehab sessions. Initiated on Metoprolol Succinate by wood products manufacturer at [facility]. - Continue Metoprolol Succinate as prescribed. - Monitor BP regularly. 5. Disseminated histoplasmosis (B39.9) Previously treated; currently under follow-up with infectious disease specialist at [facility]. 6. History of recurrent deep vein thrombosis (DVT) (Z86.718) On Coumadin therapy; recent INR checks performed. - Continue Coumadin therapy. - Regular INR monitoring. 7. History of GI bleed (Z87.19) No recent episodes reported. 8. History of COPD (Z87.09) Managed with Spiriva and Wixela inhalers. - Continue Spiriva and Wixela as prescribed. Instructions provided to patient: We discussed your post-TAVR follow-up: - Your EKG today showed sinus rhythm with some premature atrial contractions, which are not concerning. - Your echocardiogram and lab results are still pending. I will review these and send you a Krave-N message with the results once they are available. We discussed your medications: - Continue taking Metoprolol Succinate as prescribed. This was started recently to help manage your heart rate during cardiac rehab. - You are no longer taking Aldactone (spironolactone) or baby aspirin, so these have been removed from your medication list. - Continue taking Gabapentin twice daily, Methotrexate (4 tablets every Sunday), Sulfasalazine (2 tablets twice daily), Spiriva inhaler, Wixela inhaler, and Coumadin as prescribed. - You mentioned having hydrocodone with Tylenol prescribed for pain but have not taken it. If you decide to use it, please follow the instructions carefully and use it sparingly due to its opioid content. We discussed your symptoms and cardiac rehab: - You reported no recent issues with shortness of breath, chest pain, palpitations, or leg swelling. - Your blood pressure has been elevated at times during cardiac rehab, but this is being monitored. Continue to keep an eye on your blood pressure and heart rate during rehab. - You are tolerating cardiac rehab well and should continue attending as planned. We discussed your follow-up care: - Routine echocardiograms are important to monitor your mitral valve. If your echocardiogram today shows no significant changes and you remain symptom-free, you will need another echocardiogram in one year. - You can follow up with a local wood products manufacturer in [place] for your annual echocardiogram and routine care. If you prefer, you can also follow up at another [facility] facility or return here for your valve care. - as long as ECHO looks good today, you can follow-up with repeat ECHO in 1 years time - If you experience new or worsening symptoms, such as shortness of breath, chest pain, or leg swelling, please contact your wood products manufacturer or our office immediately. Next steps: - Attend your echocardiogram appointment today as scheduled. - I will contact you via Krave-N with your echocardiogram and lab results once they are available. - Ensure you have a follow-up plan with a wood products manufacturer for your annual echocardiogram and routine care. Please let us know if you have any questions or concerns. Education/Counseling: We have discussed the following pharmacological measures during this visit: Reviewed all medications. Patient is able to get medications with out issues Reviewed any possible side effects of medications. Take ALL medications as prescribed. We discussed the following non-pharmacological measures during this visit: Diet: Eat a low-salt (sodium) diet Read food labels for sodium content. Mediterranean Diet Weight: Check for swelling in your feet, ankles, legs, and stomach. Weigh yourself each morning before breakfast. Compare If your weight goes up or down 4lbs from your dry weight, call your wood products manufacturer Exercise: Be active and exercise every day. Smoking and alcohol abstinence/cessation, if applicable Please Visit [email or web address] Questions or Concerns after you go home? Please call Nurse agricultural production engineer line at . I spent a total of >45 minutes on the date of the service which included preparing to see the patient, [id number] patient care, completing clinical documentation, obtaining and/or reviewing separately obtained history, performing a medically appropriate examination, counseling and educating the patient/family/caregiver, ordering medications, tests, or procedures, independently interpreting results (not separately reported), communicating results to the patient/family/caregiver, and care coordination (not separately reported). Brissa Chester, MSN, SUPERVISOR IRRIGATION-FINANCIAL ANALYSIS ADVISOR documented in this encounter [facility] 07-21-2024 History of Presen t illness Narrative Noted, agree, thank you! patient had inr completed at [facility] patients inr is 1.4 (patients inr range is 1.7-2.2) patient is currently taking 6mg Tues,Thurs,Sat and 5mg all other days patients last dose change was on 07/07/24 due to a low level of 1.4 (dose at that time was 6mg Thur Sat and 5mg all other days) patient has had no changes in medication except for coumadin and no missed doses and no change in diet recommend: patient change coumadin to 5mg Tue,Thurs,Sat and 6mg all other days and recheck in 2 weeks patient has been scheduled for a 2 week follow up inr on 08/06/24 please review and advise on recommendation patient only needs called if provider does not agree with recommendation documented in this encounter [facility] 07-07-2024 History of Presen t illness Narrative pcp agrees with information patient had inr completed at [facility] patients inr is 1.4 (patients inr range is 1.7-2.2) patient is currently taking 6mg Thurs Sat and 5mg all other days patients last dose change was on 01/10/24 due to a low level of 1.5 (dose at that time was 6mg Thurs and 5mg all other days) patient has had no changes in medication and no missed doses and no change in diet recommend: patient change coumadin to 6mg Tues,Thurs,Sat and 5mg all other days and recheck in 2 weeks patient has been scheduled for a 2 week follow up inr on 07/21/24 please review and advise on recommendation patient only needs called if provider does not agree with recommendation documented in this encounter [facility] 07-07-2024 Telephone encount er Note Prescription Refill Information The patient has been identified by name and date of : Yes Caregiver verified no other encounters exist for this prescription request: Yes Caregiver confirmed with patient/requestor that no other refills are due, in the near future, with this provider at this time: Yes The last office visit in the department: 06/13/24 Does the patient have a future office visit with this provider/department: Yes (05/26/25) Requested Prescriptions Pending Prescriptions Disp Refills gabapentin (NEURONTIN) 300 mg capsule 180 capsule 3 Sig: Take 1 capsule by mouth two times a day. Melissa Means RN July 07, 2024 12:02 PM [facility] 07-07-2024 Miscellaneous Notes Formattin g of this note is different from the original. Prescription Refill Information The patient has been identified by name and date of : Yes Caregiver verified no other encounters exist for this prescription request: Yes Caregiver confirmed with patient/requestor that no other refills are due, in the near future, with this provider at this time: Yes The last office visit in the department: 06/13/24 Does the patient have a future office visit with this provider/department: Yes (05/26/25) Requested Prescriptions Pending Prescriptions Disp Refills gabapentin (NEURONTIN) 300 mg capsule 180 capsule 3 Sig: Take 1 capsule by mouth two times a day. Melissa Means RN July 07, 2024 12:02 PM documented in this encounter [facility] 06-25-2024 History of Presen t illness Narrative Images from the original note were not included. [facility] Care Path Telephonic Outreach Provider Action/SHAYNE N/A Patient identified by Name and Date of . Discussed care with patient. [facility] Update Spoke with the pt. At this time. She has been doing very well. She said that cardiac rehab has been doing good and she enjoys it She established with a new wood products manufacturer at [place] as it was a little closer and more convenient for her. She liked him and he said he didn't need to see her for another year after having another echocardiogram that was stable. 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 not have a nursing director Biannual Cardiology visit addressed 08/20/2024 05/26/2024 Pili Benitez RN Complete/Scheduled Biannual PCP visit addressed 08/20/2024 05/26/2024 Pili Benitez RN Complete/Scheduled HTN lab care gaps addressed 08/20/2024 05/26/2024 Pili Benitez RN Complete/Scheduled General education provided (managing stress, where to go/how to contact, etc.) 06/20/2024 04/14/2024 Pili Benitez RN Complete H@H # given 04/14/24 Intake assessments completed: ADLs, Fall Risk, SDOH 06/20/2024 04/14/2024 Pili Benitez RN Complete Annual Medicare Wellness visit addressed 08/20/2024 04/14/2024 Pili Benitez RN Complete/Scheduled Scheduled for 05/20/24 Assessments CDM Assessment Medications: Do you have any questions about taking your medications or which medications you should be taking?: No Do you need any medication refills at this time, including any of the medication you might take only when needed?: No Social: It can be normal to feel anxious or down during a time like this. 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 Please review and advise. Magalie Ngo LPN [facility] 06-20-2024 Miscellaneous Notes Formattin g of this note is different from the original. GEREMIAS 02/23/23 Patient phones requesting refills as follows: Requested Prescriptions Pending Prescriptions Disp Refills fluticasone (FLONASE) 50 mcg/actuation nasal spray 3 each 3 Sig: Use 1 spray in each nostril once daily. Please review and advise. Magalie Ngo LPN documented in this encounter [facility] 06-20-2024 Evaluation note Diagnosis Onset Date Resolution Mitral stenosis acute June 20, 2024 10:07am Severe aortic stenosis acute Ma y 2024 10:07am Hypertension chronic June 20 10:07am [facility] Work Phone: 1(434) 749-948704-07-2025 History of Present illness Narrative* Pili Benitez RN - 05/26/2024 10:40 AM EDT Transitional Care Management (TCM) Follow-Up Note PCP Update / Actionable Items N/A N/A - No specialty updates needed Patient Source: In-Network Discharge Follow-up outreach: TCM enrolled patient Outreach Summary: TCM Update Spoke with the pt. At this time. 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 She was happy about this and really looking forward to getting back to this She goes for an evaluation for cardiac rehab on Sunday. Sent the ptRc PERLA for CHF to review from what we discussed last week No mention of any further new or worsening symptoms No new SDOH concerns were addressed during this call. Will continue to follow patient and continue outreach calls. Contact: Contact made with patient: Yes Spoke to: Patient Validation: Validated the person spoken to is actively involved in the patient's care. The patient was identified by Name and Date of . I'd like to get an update on how you're doing since our last phone call. Is now a good time to talk? Yes Symptoms: Are you feeling about the same, better or worse since leaving the hospital? Better Weekly Outreach: 3rd Outreach (Reminder to complete appropriate education topics with the patient.) Medications: Do you have any questions about taking your medications, including which medications you should be on, or do you need refills on your medications? No Patient Questions / Concerns: Do you have any questions related to your discharge? No Appointment / TCM Follow-Up: Have you had a follow-up visit with your Primary Care Provider or Specialist since you were discharged? Yes Do you need any assistance with scheduling or changing your follow-up appointments? Patient alreadyhas an appointment scheduled EDUCATION: N/A Pili Benitez RN May 26, 2024 10:42 AM [facility] Tele[facility] encounter Note * Telephone Encounter - Yesenia Weinstein LPN - 05/22/2024 11:34 AM EDT Information requested by Santos with [facility] Cardiac Rehab has been faxed as rquested [facility]04-03-2025 Miscellaneous Notes* Telephone Encounter - Yesenia Weinstein LPN - 05/22/2024 11:34 AM EDT Information requested by Santos with [facility] Cardiac Rehab has been faxed as rquested * Telephone Encounter - Lulu Quigley RN - 05/21/2024 11:00 AM EDT Santos with [facility] Cardiac Rehab calls to report that more information is needed for Consult to Cardiac Rehab referral. New referral is needed specifically for whether referral is for heart failure or S/P TAVR. Referralcan't be for both. If referral is for S/P TAVR surgical report is needed and surgery must have been within the past year. If referral is for Heart Failure more supporting data would be needed including an ECHO and EKG with an Ejection Fraction of less than 35% for Insurance to cover the referral. Referral also has to be signed by a physician. Phone number for further questions is [phone]. Lulu Quigley RN [facility] Telephone encounter Note * Telephone Encounter - Lulu Quigley RN - 05/21/2024 11:00 AM EDT Santos with [facility] Cardiac Rehab calls to report that more information is needed for Consult to Cardiac Rehab referral. New referral is needed specifically for whether referral is for heart failure or S/P TAVR. Referralcan't be for both. If referral is for S/P TAVR surgical report is needed and surgery must have been within the past year. If referral is for Heart Failure more supporting data would be needed including an ECHO and EKG with an Ejection Fraction of less than 35% for Insurance to cover the referral. Referral also has to be signed by a physician. Phone number for further questions is [phone]. Lulu Quigley RN [facility]04-01-2025 History of Present illness Narrative* Jimbo Swanson APRN.CNS - 05/20/2024 2:13 PM EDT Continue current dosing and recheck INR 2 weeks, advised of this at visit today. * Melissa Means RN - 05/20/2024 12:53 PM EDT patient had inr completed at [facility] patients inr is 1.6 (patients inr range is 1.7-2.2) patient is currently taking 6mg Thurs,Sat and 5mg all other days patients last dose change was on 01/10/24 due to a low level of 1.5 (dose at that time was 6mg Thurs and 5mg all other days) patient has had no changes in medication and no change in diet Advised patient to continue on the same dose(s) and that they would only be contacted regarding dosage and follow up instructions after review with provider, if a change is needed. Written instructions given and patient verbalized understanding. Presently scheduled in 2 weeks (06/03/24) for follow up INR since level is just slightly low [facility] Instructions* Patient Instructions* Jimbo Swanson APRN.CNS - 05/20/2024 1:20 PM EDT Screening schedule The following prevention plan is recommended: BP Controlled (<130/80) due on 10/28/2023 WHAT YOU CAN DO TO PREVENT FALLS Many falls can be prevented. By making some changes, you can lower your chances of falling. Four things YOU can do to prevent falls for you* and your caregiver 1. Begin a regular exercise program Exercise is one of the most important ways to lower your chances of falling. It makes you stronger and helps you feel better. Exercises that improve balance and coordination (like Edinson Chi) are the most helpful. Lack of exercise leads to weakness and increases your chances of falling. Ask your doctor or health care provider about the best type of exercise program for you. 2. Have your health care provider review your medicines Have your doctor or pharmacist review all the medicines you take, even [id number] medicines. As you get older, the way medicines work in your body can change. Some medicines, or combinations of medicines, can make you sleepy or dizzy andcan cause you to fall. 3. Have your vision checked Have your eyes checked by an eye doctor at least once a year. You may be wearing the wrong glasses or have a condition like glaucoma or cataracts that limits your vision. Poor vision can increase your chances of falling. 4. Make your home safer About half of all falls happen at home. To make your home safer: Remove things you can trip over (like papers, books, clothes, and shoes) from stairs and places where you walk. Remove small throw rugs or use double-sided tape to keep the rugs from slipping. Keep items you use often in cabinets you can reach easily without using a step stool. Have grab bars put in next to your toilet and in the tub or shower. Use non-slip mats in the bathtub and on shower floors. Improve the lighting in your home. As you get older, you need brighter lights to see well. Hang light-weight curtains or shades to reduce glare. Have handrails and lights put in on all staircases. Wear shoes both inside and outside the house. Avoid going barefoot or wearing slippers. For more information, contact: Centers for Disease Control and Prevention www.cdc.gov/injury * This information may not apply if you have certain medical conditions. [facility] History of Present illness Narrative* Jimbo Swanson APRN.CNS - 05/20/2024 1:16 PM EDT Images from the original note were not included. Haydee Bustamante is a 78 year old female here for a Medicare wellness visit. Medicare Health Risk Assessment General Health Very good Exercise: Minutes/Day 20 min Exercise: Days/Week 7 days Alcohol: Daily Use Never Alcohol: Drinks/Day Patient does not drink Alcohol: 6 or more drinks Never Feel off balance No Concerns: Teeth/Dentures No Concerns: Sexual function No Troubled by feelings None of the above Frequency: Eating healthy diet Nearly every day ADLs requiring help Sitting or standing Safety precautions in home/vehicle Yes Smoke, vape, chews tobacco No Difficulty hearing No Difficulty seeing No Current Providers Specialists: I have reviewed specialist-related care of the patient in the medical record. Outside specialists seen: [facility] Medical/Family history review Reviewed and updated problem list, medical/surgical/family/social history, medications, and allergies. Opioid use review Opioid Medications (last 90 days) No data to display Anxiety/Depression screening PHQ-2 Score: 0 (Lower risk for depression) ARNALDO-7 Score: 2 (Minimal Anxiety) Recommendation: no further intervention at this time and continuing current treatment plan Cognitive screening Mini Cog Score: 5 Cognitive screening reviewed and No further action needed (score 3-5). Functional Observation Was the patient's Timed Up & Go test unsteady or >= 12 seconds? No Advance Care Planning Surrogate decision maker and/or advance care plan documented Notes arthritis pain keeping her awake at night at times. Currently taking tylenol only due to history of GIB, avoiding NSAIDs. Measurements BP 113/65 Pulse 92 Resp 16 Ht 159.5 cm (5' 2.8") Wt 59.1 kg (130 lb 4.7 oz) BMI 23.23 kg/m Vision Screening: Follows with optometry/ophthalmology Right: 20/25 Left: 20/ 30 Both: 20/25 Assessment/Plan Medicare annual wellness visit, subsequent (Z00.00) - Counseled on healthy diet and regular exercise - Fall avoidance information provided - Personalized prevention plan provided Continue Coumadin dose unchanged check INR and 2 weeks. She will schedule cardiac rehab at [facility]. She would like to establish with local wood products manufacturer either in [place] at [facility]. Provided with pain medication to take at bedtime as needed for pain control affecting her sleep. Discussed possible OIC. She does note need for follow-up endoscopy at ~ 1 year from previous, prefers not to see Dr. Esteban. Jimbo Swanson APRN.INDUSTRIAL CHEMISTRY TEACHER [facility] History of Present illness Narrative* Pili Benitez RN - 05/19/2024 11:07 AM EDT Transitional Care Management (TCM) Follow-Up Note PCP Update / Actionable Items N/A N/A - No specialty updates needed Patient Source: In-Network Discharge Follow-up outreach: TCM enrolled patient Outreach Summary: TCM Update Spoke with the pt. At this time. She is doing good today. Goes tomorrow to get INR checked again tomorrow. 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 Has RA and OA that effects her daily tasks but she is doing well for the most part She has great neighbors that she is so appreciative of and she said that they check in on her from time to time. Weighing herself daily we discussed the importance of this to make sure she isn't retaining fluid We reviewed her dry weight again. She was 126lb this AM and has been maintaining there for the mostpart. She discussed how her doctors wanted her to try to Mediterranean diet out but she is a little overwhelmed since she does not like to cook. She was agreeable to have a few food lists sent to her through to review. 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 No new SDOH concerns were addressed during this call. No mention of any further new or worsening symptoms Will continue to follow patient and continue outreach calls. Contact: Contact made with patient: Yes Spoke to: Patient Validation: Validated the person spoken to is actively involved in the patient's care. The patient was identified by Name and Date of . I'd like to get an update on how you're doing since our last phone call. Is now a good time to talk? Yes Symptoms: Are you feeling about the same, better or worse since leaving the hospital? Better Weekly Outreach: 2nd Outreach Medications: Do you have any questions about taking your medications, including which medications you should be on, or do you need refills on your medications? No Patient Questions / Concerns: Do you have any questions related to your discharge? No Appointment / TCM Follow-Up: Have you had a follow-up visit with your Primary Care Provider or Specialist since you were discharged? Yes Do you need any assistance with scheduling or changing your follow-up appointments? Patient alreadyhas an appointment scheduled SDOH: Has Food and Housing been addressed in [employer] in the past 3 months? Yes EDUCATION--: Patient and family educated on issues/questions related to reason for admission, transition of care topics, and follow-up needed upon discharge. Pili Benitez RN May 19, 2024 11:12 AM [facility] History of Present illness Narrative* Pili Benitez RN - 05/12/2024 9:57 AM EDT Transitional Care Management (TCM) Follow-Up Note PCP Update / Actionable Items N/A N/A - No specialty updates needed Patient Source: In-Network Discharge Follow-up outreach: TCM enrolled patient Outreach Summary: TCM Update Feeling "fine" so far Went in to get her INR checked and it was too low at 1.3. She confirmed she has since spoke with her SANITARY LANDFILL OPERATOR about that. 1.7-2.0 range established with her doctor as her desired range for her INR. Her ATB is completed that she was discharged on. She tolerated that well with no complaints. She's been getting out and going to mosque and her choir practices. 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 and she is eager to do so as she really enjoys this type of volunteer work. No mention of any further new or worsening symptoms No new SDOH concerns were addressed during this call. Will continue to follow patient and continue outreach calls. Contact: Contact made with patient: Yes Spoke to: Patient Validation: Validated the person spoken to is actively involved in the patient's care. The patient was identified by Name and Date of . I'd like to get an update on how you're doing since our last phone call. Is now a good time to talk? Yes Symptoms: Are you feeling about the same, better or worse since leaving the hospital? Better Weekly Outreach: 1st Outreach Medications: Do you have any questions about taking your medications, including which medications you should be on, or do you need refills on your medications? No Patient Questions / Concerns: Do you have any questions related to your discharge? No Appointment / TCM Follow-Up: Have you had a follow-up visit with your Primary Care Provider or Specialist since you were discharged? Yes Do you need any assistance with scheduling or changing your follow-up appointments? Patient alreadyhas an appointment scheduled EDUCATION: Patient and family educated on issues/questions related to reason for admission, transition of care topics, and follow-up needed upon discharge. Pili Benitez RN May 12, 2024 9:59 AM [facility] Telephone encounter Note * Telephone Encounter - Yesenia Weinstein LPN - 05/12/2024 8:50 AM EDT Patient notified of providers message and verbalized understanding. [facility]03-[facility] Miscellaneous Notes* Telephone Encounter - Yesenia Weinstein LPN - 05/12/2024 8:50 AM EDT Patient notified of providers message and verbalized understanding. * Telephone Encounter - Jimbo Swanson APRN.CNS - 05/09/2024 3:24 PM EDT Recommend continue with current dosing unchanged. Can check INR next week or Sunday or keep her scheduled appointment in Coumadin clinic on May 20. * Telephone Encounter - Yesenia Weinstein LPN - 05/09/2024 2:13 PM EDT Spoke with patient. Patient states she was released from the hospital on Sunday and she resumed her coumadin on Sunday. Her current dosing is coumadin 5 mg every day except on & Sun in which she takes 6 mg. No other finding per patient. * Telephone Encounter - Yesenia Weinstein LPN - 05/09/2024 2:07 PM EDT ----- Message from Jimbo Timmons APRN.CNS sent at 05/09/2024 1:07 PM EDT ----- Check on current dosing of check on current dosing of Coumadin and when resumed. 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 She is to stop Aspirin when INR > 2.0 * Result Encounter Note - Jimbo Swanson APRN.CNS - 05/09/2024 1:07 PM EDT Check on current dosing of check on current dosing of Coumadin and when resumed. 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 She is to stop Aspirin when INR > 2.0 [facility] Tele[facility] encounter Note * Telephone Encounter - Jimbo Swanson APRN.CNS - 05/09/2024 3:24 PM EDT Recommend continue with current dosing unchanged. Can check INR next week or Sunday or keep her scheduled appointment in Coumadin clinic on May 20. [facility]03-[facility] Telephone encounter Note* Telephone Encounter - Yesenia Weinstein LPN - 05/09/2024 2:13 PM EDT Spoke with patient. Patient states she was released from the hospital on Sunday and she resumed her coumadin on Sunday. Her current dosing is coumadin 5 mg every day except on & Sun in which she takes 6 mg. No other finding per patient. [facility]03-[facility] Telephone encounter Note* Telephone Encounter - Yesenia Weinstein LPN - 05/09/2024 2:07 PM EDT ----- Message from Jimbo Timmons APRN.CNS sent at 05/09/2024 1:07 PM EDT ----- Check on current dosing of check on current dosing of Coumadin and when resumed. 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 She is to stop Aspirin when INR > 2.0 [facility]03-[facility] Progress note* Result Encounter Note - Jimbo Swanson APRN.CNS - 05/09/2024 1:07 PM EDT Check on current dosing of check on current dosing of Coumadin and when resumed. 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 She is to stop Aspirin when INR > 2.0 [facility]03-[facility] History of Present illness Narrative* Pili Benitez, RN - 05/05/2024 10:32 AM EDT Transition Care Management (TCM) Initial Outreach PCP Update / Actionable Items N/A HRTIC TCM Home Visit Referral Source of Stratification: TCM HUB Hospital Admission Status: Discharged Readmission Risk Score: 10% Patient's zip code: [address] Is zip code within program service area: N/A Patient meets program referral criteria: No Patient does not qualify for High Risk TCM Home Visit program due to: Readmission Risk Score does not meet criteria Disposition: Patient does not qualify for HRTIC, will provide TCM outreach follow-up for 30-days Patient Source: In-Network Discharge Initial outreach: TCM discharge report Outreach Summary: TCM Update Spoke with the pt. And confirmed upcoming appts. Went to Metal Fabricator Welder office this morning- everything going well since procedure Procedure went "super well" and she is feeling good We discussed her incision site and there is no drainage just a little bruise. She has been washing her incision well and they did look at it this morning at the appt. She has been ambulating and not having any troubles. She has been weighing daily. Dry weight 128lb- She was 130lb this morning but not having any S/S offluid overload. She thinks that she may have had her pajamas on this morning which could have attributed to the slight weight gain. Cardiac rehab will be taking place at [facility]- She will call them to schedule She has good support from her mosque that help her get to her appts and things. She was told today she still cannot drive for 10 more days. She does not think this will be a challenge for her as she does have so many friends and people to help out. No mention of any further new or worsening symptoms Discussed SDOH and the pt. Denies any needs at this time. Pt. Agreeable for further TCM outreach phone calls Patient discharged from [facility] Discharge date: 05/03/24 Admitted for: TAVR procedure Readmission Risk: 10 Value-Based Contract: [employer] SANDY Contact: Contact made with patient: Yes Hi, my name is Pili Benitez RN and I am calling from the [facility] on behalf of your PrimaryCare Provider, Claudine Durán MD. I understand you were recently in the hospital, so I am callingto check in with you to ensure you are feeling well now that you are home. May I ask you a few questions related to your hospital stay and well-being? Yes Spoke to: Patient Validation: Validated the person spoken to is actively involved in the patient's care. The patient was identified by Name and Date of . Symptoms: Are you feeling about the same, better or worse since leaving the hospital? Better Medications: Do you have any questions about taking your medications, including which medications you should be on, or do you need refills on your medications? No Medication Review: Declined at this time per patient preference Discharge Instructions: Your Discharge Instructions / After Visit Summary (AVS) are important in guiding you through the recovery process. Do you have any questions related to your discharge instructions? No Home Care: Were you discharged with home care? No Equipment: Do you have all the necessary equipment and supplies needed at your home? Yes The patient verbalizes understanding the use of the equipment and supplies Social: Your mental health is as important to us as your physical health. Would you mind answering a few questions on this topic? Yes On the Storyboard review: Food Insecurity, Transportation, Depression, Housing, and Financial Strain: Complete any SDOHs, listed above, if not addressed in the past 3 months. If all SDOHs, listed above, have been addressed within the last 3 months, confirm responses and update any SDOHs that have changed. Action Taken: No needs verbalized. No action required. Follow-Up Appointment: [Appointment / TCM Follow-up within 14 days] I would like to help you schedule a hospital follow-up virtual or telephone visit with your PCP. This is a great way for you to connect with your provider to ensure you have safely transitioned home.If you are agreeable, I will send your request to a production control scheduler who will contact and assist you with that appointment. This will give you an opportunity to ask any questions or address any concerns youmay have with your PCP. Inform the patient that if they have any questions or concerns prior to that appointment, to call their PCP's office right away. Appointment Action: No action required; patient already has appointment scheduled. Education details: Patient and family educated on issues/questions related to reason for admission,transition of care topics, and follow-up needed upon discharge. Pili Benitez RN May 05, 2024 10:45 AM documented in this encounterKn[facility] Instructions* Patient Instructions* Adalid Clark APRN.FINANCIAL ANALYSIS ADVISOR - 05/05/2024 8:34 AM EDT Follow up/Disposition: INR in 1 week and stop Aspirin when INR > 2.0 Cardiac rehab order With Cardis with EKG, Echo and labs as scheduled- sooner if needed. Education/Counseling: We have discussed the following pharmacological measures during this visit: Reviewed all medications. Patient is able to get medications with out issues Reviewed any possible side effects of medications. Take ALL medications as prescribed. We discussed the following non-pharmacological measures during this visit: Diet: Eat a low-salt (sodium) diet Read food labels for sodium content. Mediterranean Diet Weight: Check for swelling in your feet, ankles, legs, and stomach. Weigh yourself each morning before breakfast. Compare If your weight goes up or down 4lbs from your dry weight, call your wood products manufacturer Exercise: Be active and exercise every day. Smoking and alcohol abstinence/cessation, if applicable Heart Failure Education Booklet: information given previously. Please Visit [email or web address] documented in this [facility] History of Present illness Narrative* Adalid Clark APRN.CNP - 05/05/2024 8:14 AM EDT Images from the original note were not included. [facility] [place] [facility] Department of Cardiovascular Medicine SECTION OF INTERVENTIONAL CARDIOLOGY OUTPATIENT VISIT DATE May 05, 2024 OUTPATIENT VISIT TYPE ESTABLISHED FOLLOW UP Primary Metal Fabricator Welder: Dr. Saeed Chief Complaint: Patient here for cardiac follow up evaluation History of Present Illness: Patient is a 78 year old female who presents for follow up visit today. 05/02/2024 s/p TF TAVR via 14 Fr R WORKING FOREMAN with a 25 mm Navitor Reports has done well at home. No overt symptoms. Has chronic LE edema Has chronic cough/wheezing- COPD and usees inhalers Denies: chest pain, shortness of breath, dyspnea on exertion, orthopnea, PND, palpitations, lightheadedness, syncope, and claudication CARDIOVASCULAR MEDICINE TESTING: Electrocardiogram: I have personally reviewed the Electrocardiogram. Physical Examination: BP 139/71 Pulse 82 General: no acute distress- Skin warm and dry Neck- no JVP Lungs- breath sounds clear throughout. Heart- RRR + systolic murmur Abd- Soft nontedner, +BSx4 ext- no edema ACCESS SITE ASSESSMENT: Arterial Access SITES: Groin - right; Clean, dry and intact Motor Affected Extremity: muscle strength 5/5 both upper and lower extremities Sensory Examination: Neuro/Sensation is intact throughout Pulses/Signals: Radial Right: Palpable +2 - Left: Palpable +2 Ulnar Right: Palpable +2 - Left: Palpable +2 Dorsalis Pedis Right: Palpable +2 - Left: Palpable +2 Musculoskeletal: No deformities Neurologic/Psychiatric: Oriented to time, place & person, MAEx4 and No gross focal neurologic deficits HISTORY Haydee Bustamante is an 78 year old female with pmhx of: Valvular Heart Disease -Aortic stenosis (bicuspid)/MR/TR -05/02/2024 s/p TF TAVR via 14 Fr R WORKING FOREMAN with a 25 mm Navitor -Echo post trace AI, gradients 12/6mmHg HTN disseminated histoplasmosis (ongoing treatment with undetectable histo antigen 12/19) VTE s/p IVC filter (warfarin) GIB in July from duodenal ulcer s/p cautery RA (but off treatment d/t histoplasmosis) COPD ASSESSMENT/ IMPRESSION 05/02/2024 s/p TF TAVR via 14 Fr R WORKING FOREMAN with a 25 mm Navitor Reports has done well at home. No overt symptoms. Has chronic LE edema Has chronic cough/wheezing- COPD and usees inhalers Denies: chest pain, shortness of breath, dyspnea on exertion, orthopnea, PND, palpitations, lightheadedness, syncope, and claudication PLAN AND RECOMMENDATIONS: NYHA FC I Aspirin 81mg baby aspirin till INR is therapeutic DAPT n/a AC resume coumadin 05/02 without bridge Post procedural antibiotic for 3-7 days and the SBE prophylaxis. Beta Pietro: n/a ACEI/ARB/ARNI n/a SGLT2 inhibitor n/a Diuretic: n/a Aldosterone antagonist: spironolactone 25mg daily Statin n/a Additional Medications: Azulfidine Inhalers Gabapentin Methotrexate Tele/EKG (Images/strips reviewed) NSR Device therapy: n/a Aggressive risk factor modification as appropriate. -- BP Goal < 130/80 with nonpharmacologic and medical therapy -- LDL goal 50% reduction AND level < 55-70 mg/dL using max tolerated statin +/- adjuvant therapy -- HbA1C < 7% -- Healthy diet and exercise +/- weight loss if appropriate. - Smoking and alcohol abstinence/cessation, if applicable Follow up/Disposition: INR in 1 week and stop Aspirin when INR > 2.0 Cardiac rehab order With Cardis with EKG, Echo and labs as scheduled- sooner if needed. Education/Counseling: We have discussed the following pharmacological measures during this visit: Reviewed all medications. Patient is able to get medications with out issues Reviewed any possible side effects of medications. Take ALL medications as prescribed. We discussed the following non-pharmacological measures during this visit: Diet: Eat a low-salt (sodium) diet Read food labels for sodium content. Mediterranean Diet Weight: Check for swelling in your feet, ankles, legs, and stomach. Weigh yourself each morning before breakfast. Compare If your weight goes up or down 4lbs from your dry weight, call your wood products manufacturer Exercise: Be active and exercise every day. Smoking and alcohol abstinence/cessation, if applicable Heart Failure Education Booklet: information given previously. Please Visit [email or web address] I spent a total of >35 minutes on the date of the service which included preparing to see the patient, [id number] patient care, completing clinical documentation, obtaining and/or reviewing separately obtained history, performing a medically appropriate examination, counseling and educating the patient/family/caregiver, and ordering medications, tests, or procedures. Adalid Clark APRN.CNP documented in this encounterKn[facility]03[facility] History of Present illness Narrative* Jimbo Swanson APRN.CNS - 05/01/2024 4:08 PM EDT Noted, agree * Melissa Means RN - 05/01/2024 2:52 PM EDT patient had inr completed at [facility] patients inr is 1.1 (patients inr range is 1.7-2.2) patient is currently holding 6mg Thurs,Sat and 5mg all other days time 5 days due to TAVR proceduretomorrow patients last dose change was on 01/10/24 due to a low level of 1.5 (dose at that time was 6mg Thurs and 5mg all other days) patient has had no changes in medication except for coumadin and no change in diet Advised patient to continue on the same dose(s) and that they would only be contacted regarding dosage and follow up instructions after review with provider, if a change is needed. Written instructions given and patient verbalized understanding. Presently scheduled in 3 weeks (05/20/24 - pt has appt w ith SANITARY LANDFILL OPERATOR also this day) for follow up INR. documented in this encounterKn[facility] History of Present illness Narrative* Nara Chapa MD - 04/30/2024 2:20 PM EDT Cardiothoracic Anesthesiology Preoperative Assessment Service Date: 04/29/2024 Service Time: 5:59 PM Primary Care Physician: Claudine Durán MD Subjective Patient Entered Data: 04/25/2024 Cardiothoracic Surgery Pre-Op Questionnaire Previous anesthesia problems No Family history anesthesia problems No Blood consent No Implanted devices No History difficult airway No Airway surgery No Ongoing pain issues No Heparin intolerance No Daily alcohol use No Illicit drug use No Scheduled procedure: TAVR Surgeon: Juvencio aSeed Scheduled date: 05/02/2024 HPI: 78 year old female with PMH notable for: - - MS, TR - RA c/b disseminated histoplasmosis - COPD - former smoker - history of GIB - h/o DVT (on warfarin) Pt presents for preoperative evaluation prior to TAVR. Pt is currently asymptomatic without any chest pain, shortness of breath, recent weight loss, fever, chills, nausea/vomiting, diarrhea. Patient instructed to: - Follow surgical instruction regarding ASA therapy and warfarin (told to stop 04/28) - Hold spironolactone day of surgery - continue sulfasalazine, inhalers Pt denies any problems with prior anesthetics. We additionally discussed the anesthetic plan, what to expect, and any questions or concerns the patient may have had. Review anticoagulant/antiplatelet medication(s) - Patient is taking anticoagulant and/or antiplatelet medication with plans of stopping medication on 04/28 blood transfusion consented -. No resulted type & screen to review COVID-19 Immunization Status Upcoming Covid-19 Vaccine (9 - Pfizer risk 2023- season) Postponed until 02/28/2025 02/29/2024 Postponed until 02/28/2025 by Claudine Durán MD (Declined at this time) 11/22/2023 Imm Admin: COVID-19 vaccine, age 12+ yr (PFIZER-BIONTECH COMIRNATY) 01/04/2023 Imm Admin: COVID-19 vaccine, age 12+ yr, season (PFIZER-BIONTECH) Only the first 3 history entries have been loaded, but more history exists. 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 Cloth Trimmer Current Use of Anticoagulant Therapy Hnp (Herniated Nucleus Pulposus), Lumbar Atrophic Vaginitis Ganglion Cyst Essential Hypertension Rheumatoid Arthritis (Hcc) Pain in Right Hip Low Back Pain With Right-Sided Sciatica History of Recurrent Deep Vein Thrombosis (Dvt) Ddd (Degenerative Disc Disease), Lumbar Spondylolisthesis of Lumbar Region Iron Deficiency Anemia Due to Chronic Blood Loss Disseminated Histoplasmosis Aortic Valve Stenosis Lung Nodule Bronchiectasis Without Complication (Hcc) Copd Without Exacerbation (Hcc) Pneumatosis Intestinalis Covid-19 Hemoptysis Gram-Negative Infection Anaerobic Bacterial Infection History of Immunosuppressive Therapy History of Penicillin Allergy Counseling, Unspecified Histoplasmosis Nonrheumatic Mitral Valve Stenosis Pericardial Effusion 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 Diverticulosis of colon (without mention of hemorrhage) Diverticulosis DVT, recurrent, lower extremity, acute (HCC) 12/10/2014 GERD (gastroesophageal reflux disease) Hiatal hernia 02/25/2018 Hypertension Lung nodule Macular degeneration Mitral stenosis 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 rheumatoid factor (HCC) 03/07/2015 Dr. Hurley ([facility]) Tricuspid regurgitation PAST SURGICAL HISTORY Procedure Laterality Date COLONOSCOPY [...] SPINE FUSN,POST INTERBODY 2012 Dr. Armando at [facility]. Diskectomy and laminectomy PAST SURGICAL HISTORY OF 03/07/1999 removal facial lesion PAST SURGICAL HISTORY OF 08/17/2014 excision soft tissue mass left index finger TONSILLECTOMY PRIMARY/SECONDARY <AGE 12 TRANSCATH RETRIEVAL,PERCUT 12/28/2006 FAMILY HISTORY Problem Relation Age of Onset Cancer Mother brain Social History Tobacco Use Smoking status: Former Current packs/day: 0.00 Average packs/day: 1 pack/day for 10.0 years (10.0 ttl pk-yrs) Types: Cigarettes Start date: 02/19/1979 Quit date: 02/19/1989 Years since quittin.2 Smokeless tobacco: Never Tobacco comments: Late heavy smoker. Vaping Use Vaping status: Never Used Substance Use Topics Alcohol use: Yes Comment: occasional Drug use: No Prior to Admission medications as of 04/21/24 1119 Medication Sig Last Dose Taking sulfaSALAzine EC (AZULFIDINE EN) 500 mg EC tablet Take 1,000 mg by mouth two times a day. itraconazole (SPORANOX) 10 mg/mL solution Take 20 mL by mouth two times a day. warfarin (COUMADIN) 1 mg tablet Take 6 mg and 5 mg all other days or as directed. Patient taking differently: Take 1 mg by mouth once daily. Take 6 mg /Sunday and 5 mg allother days or as directed. warfarin (COUMADIN) 5 mg tablet Take 1 tablet by mouth once daily. or as directed diclofenac (VOLTAREN) 1 % topical gel Apply 2 g to affected area four times daily. Both knees spironolactone (ALDACTONE) 25 mg tablet Take 1 tablet by mouth once daily. Patient not taking: Reported on 01/02/2024 tiotropium bromide (SPIRIVA RESPIMAT) 2.5 mcg/actuation inhaler Inhale 2 Puffs as instructed once daily. Inhale two puffs once daily. potassium chloride ER (KLOR-CON M20) 20 mEq tablet Take 1 tablet by mouth two times a day. gabapentin (NEURONTIN) 300 mg capsule Take 1 capsule by mouth two times a day. fluticasone-salmeterol (WIXELA INHUB) 250-50 mcg/dose inhaler Inhale 1 Puff as instructed two timesa day. albuterol HFA (PROAIR HFA) 90 mcg/actuation inhaler Inhale 2 Puffs as instructed every 4 hours as needed. loperamide (IMODIUM) 2 mg cap(s) Take 1 capsule by mouth three times a day as needed for diarrhea for up to 7 days. Mucus Clearing Device (QUAKE VIBRATORY PEP) renetta Provide 1 device FOLIC ACID ORAL Take by mouth. fluticasone (FLONASE) 50 mcg/actuation nasal spray Use 1 [place] in each nostril once daily. vit A,C,C-Ndkb-Irfhwv (OCUVITE PRESERVISION) 2,148 mcg-113 mg-45 mg-17.4mg tab Take 2 tablets by mouth daily with breakfast. leucovorin (LEUCOVORIN) 15 mg tablet Take 15 mg by mouth once daily. methotrexate 2.5 mg tablet Take 2.5 mg by mouth every Sunday. PT takes 2 tablets in am and 1 tablets in pm Cholecalciferol, Vitamin D3, 1,000 unit ORAL Cap Take 1 capsule by mouth once daily. omega-3 fatty acids/vitamin e(FISH OIL 1,000 MG CAP) Take one(1) capsule daily. THERAPEUTIC MULTIVITAMIN TAB Take one(1) tablet daily. Medication Comments documented by Steven (Axminster Weaver)Muna on 03/05/2018 at 0933. 03/05/18 The medications are managed by this patient by: PATIENT Muna Harris ([facility]) [facility] for fpc medications. ALLERGIES Allergen Reactions Penicillins Hives Objective Pain Assessment: Vitals: There were no vitals taken for this visit. Diagnostic tests reviewed for today's visit: Lab Value Units Date High Low HB 10.9 g/dL 03/24/2024 15.5 11.5 HCT 34.1 % 03/24/2024 46.0 36.0 WBC 8.03 k/uL 03/24/2024 11.00 3.70 PLT 243 k/uL 03/24/2024 400 150 NA 139 mmol/L 03/24/2024 144 136 K 4.4 mmol/L 03/24/2024 5.1 3.7 GLUC 84 mg/dL 03/24/2024 99 74 BUN 24 mg/dL 03/24/2024 21 7 CREAT 0.53 mg/dL 03/24/2024 0.96 0.58 CREAT 0.60 mg/dL 03/21/2024 1.4 0.7 PTSEC No results within date range. INR 1.7 no uni* 04/03/2024 1.2 0.8 APTT No results within date range. ALT 22 U/L 03/21/2024 38 7 AST 21 U/L 03/21/2024 35 13 TBILI 0.3 mg/dL 03/21/2024 1.3 0.2 TSH No results within date range. Lab Value Units Date High Low HCGQT No results within date range. UHCG No results within date range. HCG, BODY* No results within date range. Lab Value Units Date High Low ABORHD No results within date range. ABSCREEN No results within date range. No results found for: "HBA1C" Recent Results (from the past 8760 hours) XR CHEST 2V FRONTAL/LAT Collection Time: 03/21/24 11:36 AM Impression IMPRESSION: See result Jack Machine Operator: KRYSTAL Transcribe Date/Time: Mar 21 2024 12:02P Dictated by : JACKELINE SCHULER MD This examination was interpreted and the report reviewed and electronically signed by: JACKELINE SCHULER MD on Mar 21 2024 12:04PM EST ECG COMPLETE Collection Time: 03/21/24 11:27 AM Impression SINUS RHYTHM WITH PREMATURE ATRIAL COMPLEXES BORDERLINE ECG Confirmed by IRA MC, ELIE ([id number]) on 03/30/2024 12:00:41 AM CTA CHEST (GATED) W IVCON Collection Time: 03/21/24 10:57 AM Impression IMPRESSION: Aortic Annulus and valve anatomy as described above Normal thoracic and abdomiinal aorta.Atherosclerotic changes as in the body of the report.Minimum luminal diameter throughout: 7 mm Jack Machine Operator: [facility] Transcribe Date/Time: Mar 21 2024 11:22A Dictated by : CALIXTO BLACKWOOD MD This examination was interpreted and the report reviewed and electronically signed by: CALIXTO BLACKWOOD MD on Mar 21 2024 12:53PM EST ECHO Collection Time: 01/18/24 10:30 AM Impression CONCLUSIONS: - Exam indication: Pre TAVR procedure - The left ventricle is normal in size. Left ventricular systolic function is normal. EF = 60 5% (2D biplane) Left ventricular diastolic function was not evaluated. - The right ventricle is normal in size. Right ventricular systolic function is normal. - The left atrial cavity is severely dilated. - There is a small pericardial effusion adjacent to the left ventricle and right ventricle measuring 0.6 cm and a moderate pericardial effusion adjacent to the right atrium measuring 1.3 cm. The inferior vena cava appears dilated measuring 2.3 cm. The vessel decreases greater than 50 percent with inspiration. - There is moderate mitral stenosis caused by calcification - annular. The peak gradient is 18 mmHg and the mean gradient is 9 mmHg. MV area is 1.97 cm (1.28 cm /m ) by P1/2. Mild to moderate (1-2+) mitral valve regurgitation. - There is moderate (2+) tricuspid valve regurgitation. - Tricuspid aortic valve. There is severe aortic valve stenosis caused by calcified valve and restricted opening. AV area is 0.59 cm (0.39 cm /m ) by continuity, VTI. The peak gradient is 90 mmHg, the mean gradient is 54 mmHg and the dimensionless valve index is 0.20. - Estimated right ventricular systolic pressure is 47 mmHg consistent with moderate pulmonary hypertension. Estimated right atrial pressure is 8 mmHg based on IVC assessment. - Small to moderate pericardial effusion with no echocardiographic features of tamponade. - Exam was compared with the prior echocardiographic exam performed on 09/28/2023. Aortic valve gradients are higher and estimated RVSP is higher in today' study. * * * Final * * * Assessment No problem-specific Assessment & Plan notes found for this encounter. ANESTHESIA FINDINGS: Intubation History: No history of difficult intubation Patient is a candidate for regional or neuraxial anesthesia and was counseled on its risks and benefits Significant Anesthesia Considerations: Airway History: No history of difficult airway Prepared for Surgery: The Following Tests/Procedures Have Been Initiated: No orders of the defined types were placed in this encounter. ASA Class: 4 Planned Anesthetic: MAC I - PHYSICAL EVALUATION AIRWAY Patient intubated: No. Tracheostomy tube not present Mallampati: III. TM distance: >3 FB. Neck ROM: full ROM without neurological symptoms. Mouth opening: adequate. Short neck: no. Thick neck: no DENTAL Normal dental observations. II - ANESTHESIA PLAN ASA Score: 4 Anesthetic Plan: MAC Beta Pietro Monitoring Plan Post Procedure Analgesic Plan Informed Consent Anesthetic risks, benefits, alternatives, personnel and consent discussed: yes. Patient / Responsible Green Party agrees to proceed: yes Patient / Surrogate agrees to blood products: Yes Discussed the possibility of lip / dental damage: yes Instructions Given to Patient: Instructions located in the after visit summary. Patient given verbal and written preop instructions and voices comprehension and compliance. Signature: Nara Chapa MD Patient Name: Haydee Bustamante Date: April 29, 2024 Time: 5:59 PM Pager/Contact #: documented in this encounter[facility]03-[facility]25 Instructions* Patient Instructions* Monica Aguila APRN.FINANCIAL ANALYSIS ADVISOR - 04/30/2024 1:32 PM EDT Destinee Castañeda are scheduled for TF-TAVR on 05/02/[address] Saeed Instructed to go to [employer] J1-1 REGISTRATION TODAY, after all appointment to register for the procedure. ON THE PROCEDURE DAY 05/03/2024, Report to Desk J1-2 at 8:30 . Instructions: The Evening Before Procedure. Nothing to eat or drink after midnight starting on 05/02/2024 This includes candy/mints and tobacco products. Bathe or take a shower. Use the antibacterial soap. Hibiclens as provided. Mouth care: After brushing your teeth, gargle with the Listerine Provided. Instructions: The Morning of your Procedure. Okay for to take the following medications with sips of water in AM. PLEASE ONLY TAKE THESE MEDS. No medications. (Inhalers are ok if you need them) Bathe or take a shower. Use the antibacterial soap. Hibiclens as provided. Mouth care: After brushing your teeth, gargle with the Listerine Provided. Additional information for the DAY OF SURGERY: - Hearing aides, glasses and dentures may be worn on the morning of surgery. - Wear your hair loosely. Do not use clips, pins or bands that bind your hair. Do not use hair spray. If you wear a wig or hairpiece, you will remove it before surgery. We will give you a head cover before you go into surgery. - No make-up or nail sammarinese. - No jewelry, including watches, wedding rings and any body jewelry. // Questions about preparing for your procedure? Call your doctors office: Dr. Orlin Meyer [phone] Dr. Gallito Cortez [phone] Dr. Jason Olea [phone] Dr. Juvencio Saeed [phone] Interventional Discharge Readiness Tool Your Anticipated Discharge Needs: If you are discharged the same day -You must have accommodations in [place] (if you live over 2 hours away) -Must have an adult (persons >18 years old) with you overnight -Follow up in the outpatient department the next day--this will be arranged at discharge If you stay overnight and are discharged the Next Day -Arrange you transportation/ride for around 9 AM - Recommended that you have an adult (persons >18 years old) with you overnight -Expect follow up in the outpatient department with in 1 week--this will be arranged at discharge. Patient/Family/Caregiver needs or concerns for discharge planning: None patient is aware. Activity Restrictions post procedure. Do not strain during bowel movements for 3 to 4 days after the procedure. This helps prevent bleeding from the catheter-insertion site. Do not lift anything that weighs more than 10 pounds or push or pull heavy objects for the first 10to 14 days after the procedure. Do not do any strenuous activities for 5 days after the procedure. This includes most sports, such as jogging, golfing, playing tennis and bowling. You may climb stairs if needed, but walk up and down the stairs more slowly than usual. Gradually increase your activity level during the week after the procedure, when you should be backto your normal routine. Do not have sexual intercourse. Ask your doctor when it is safe to resume sexual activity. Do not drive until you get the OK from your doctor. Ask your doctor at your follow-up visit about taking part in Stage II cardiac rehabilitation. Cardiac Rehab is a supervised program designed for patients who have certain heart procedures. You will receive a referral prior to discharge so that you can start the outpatient cardiac rehab program 2-3 weeks after you leave the hospital. Cardiac rehab will help you get stronger so you can returnto your routine activities, teach you about lifestyle changes, and nutrition by education and exercise. Completing your cardiac rehab program can greatly help your recovery and greatly reduce your risk of future heart problems. For [facility] call [phone] to schedule after you are home from your procedure. If you do not receive your referral, please call your wood products manufacturer's office for the order. It was nice to see you again, I wish you the best. Kindly, Monica Aguila APRN.SANTY documented in this encounterKn[facility]03-12-[facility]25 History of Present illness Narrative* Monica Aguila APRN.CNP - 04/30/2024 1:00 PM EDT Images from the original note were not included. [facility] [place] [facility] Department of Cardiovascular Medicine SECTION OF INTERVENTIONAL CARDIOLOGY OUTPATIENT VISIT DATE April 30, 2024 OUTPATIENT VISIT TYPE ESTABLISHED FOLLOW UP Primary Metal Fabricator Welder: Dr. Saeed Chief Complaint: Patient here for cardiac follow up evaluation History of Present Illness: Patient is a 78 year old female who presents for follow up visit today. Patient was here with a couple from her mosque. She lives at home alone and is independent in her daily activities. She can be limited at time due to her RA, but really does get around quite well. She stated that she has noticed some fatigue and bilateral lower extremity edema. Denies: chest pain, dyspnea on exertion, orthopnea, palpitations, lightheadedness, syncope, cough, and wheezing CARDIOVASCULAR MEDICINE TESTIN03/24/2024 Cardiac Cath: Coronary Anatomy: Right Dominant Injection Site(s): Coronary Artery LMT: The LMT is normal. Additional Comment: LMT is normal and gives rise to the LAD and LCx. No evidence of obstructive CAD in the LMT. LAD: The LAD has mild diffuse disease. Additional Comment: LAD is a large caliber vessel which gives rise to a high diagonal D1 branch which has about 20-30% stenosis in the mid portion. No evidence of significant obstructive disease. LCX: The Circumflex has mild luminal irregularities. Additional Comment: LCx is a large caliber vessel which gives rise to the marginal branches, no evidence of obstructive CAD. Mild diffuse disease in the LCx. RAMUS: The Ramus is Absent. RCA: The right posterior descending artery RCA is narrowed 30 % - focal disease. Additional Comment: RCA is a large caliber vessel which gives rise to the rPDA and rPL branches. The rPDA in proximal portion has 30-40% stenosis. 03/21/2024 CT Scan: Aortic Annulus and valve anatomy as described above Normal thoracic and abdomiinal aorta.Atherosclerotic changes as in the body of the report.Minimum luminal diameter throughout: 7 mm 03/21/2024 Chest X-ray: Lines, tubes, and devices: IVC filter Lungs and pleura: No consolidation or signs of edema. Left basilar dense nodule reflecting granuloma seen on prior CT. No effusion Cardiomediastinal silhouette: Stable cardiomediastinal silhouette. Bones and soft tissues: Degenerative changes. Decreased bone density 01/18/2024 Echo: - Exam indication: Pre TAVR procedure - The left ventricle is normal in size. Left ventricular systolic function is normal. EF = 60 5% (2D biplane) Left ventricular diastolic function was not evaluated. - The right ventricle is normal in size. Right ventricular systolic function is normal. - The left atrial cavity is severely dilated. - There is a small pericardial effusion adjacent to the left ventricle and right ventricle measuring 0.6 cm and a moderate pericardial effusion adjacent to the right atrium measuring 1.3 cm. The inferior vena cava appears dilated measuring 2.3 cm. The vessel decreases greater than 50 percent with inspiration. - There is moderate mitral stenosis caused by calcification - annular. The peak gradient is 18 mmHg and the mean gradient is 9 mmHg. MV area is 1.97 cm (1.28 cm /m ) by P1/2. Mild to moderate (1-2+) mitral valve regurgitation. - There is moderate (2+) tricuspid valve regurgitation. - Tricuspid aortic valve. There is severe aortic valve stenosis caused by calcified valve and restricted opening. AV area is 0.59 cm (0.39 cm /m ) by continuity, VTI. The peak gradient is 90 mmHg, the mean gradient is 54 mmHg and the dimensionless valve index is 0.20. - Estimated right ventricular systolic pressure is 47 mmHg consistent with moderate pulmonary hypertension. Estimated right atrial pressure is 8 mmHg based on IVC assessment. - Small to moderate pericardial effusion with no echocardiographic features of tamponade. - Exam was compared with the prior CC echocardiographic exam performed on 09/28/2023. Aortic valve gradients are higher and estimated RVSP is higher in today' study. Echo 09/28/2023: - Exam indication: Limited for Pericardial Effusion - The left ventricle is normal in size. Left ventricular systolic function is normal. EF = 62 5% (2D biplane) Grade I left ventricular diastolic dysfunction. - The right ventricle is normal in size. Right ventricular systolic function is normal. - There is a small pericardial effusion adjacent to the left ventricle measuring 0.7 cm, a small pericardial effusion adjacent to the right ventricle measuring 0.6 cm and a moderate pericardial effusion adjacent to the right atrium measuring 1.2 cm. The inferior vena cava appears normal measuring 1.8 cm. The vessel decreases greater than 50 percent with inspiration. No apparent signs of cardiac tamponade. - There is moderate mitral stenosis. The peak gradient is 22 mmHg and the mean gradient is 10 mmHg. - There is moderate (2+) tricuspid valve regurgitation. - There is severe aortic valve stenosis. AV area is 0.94 cm (0.58 cm /m ) by continuity, VTI. The peak gradient is 64 mmHg, the mean gradient is 37 mmHg and the dimensionless valve index is 0.31. - Exam was compared with the prior OUTSIDE echocardiographic exam performed on 03/22/2023. No significant change with the pericardial effusion or valvular disease. EKG 01/02/2024: NORMAL SINUS RHYTHM BIATRIAL ENLARGEMENT ABNORMAL ECG REVIEW OF SYSTEMS: PAIN ASSESSMENT: Denies complaints of acute or chronic pain GENERAL: +fatigue, Denies fevers, chills, night sweats, weight gain or loss HEENT: Denies changes in vision, hearing, nose bleeds, or bleeding gums NECK: Denies neck pain, stiffness, or swelling, or swollen lymph nodes RESPIRATORY: Denies shortness of breath, FLYNN cough, wheezing, or hemoptysis CARDIOVASCULAR: Denies chest pain, palpitations, claudication, orthopnea, or edema GI: Denies difficulty swallowing, nausea, vomiting, diarrhea, constipation, or melena : Denies frequency, urgency, or burning, and hematuria MUSCULOSKELETAL: Denies joint pain, swelling, or stiffness SKIN: Denies rashes, lesions, or tears PSYCH: Denies sleep disturbance, mood disorder, or recent psychosocial stressors HEMATOLOGY/LYMPHOLOGY: Denies prolonged bleeding or easy bruising ENDOCRINE: Denies heat or cold intolerance, polydipsia or polyphagia NEURO: Denies syncope, seizures, or numbness or tingling of hands or feet Physical Examination: BP 115/63 Pulse 88 Resp 16 Ht 160 cm (5' 3") Wt 59.4 kg (131 lb) BMI 23.21 kg/m General: No acute distress Skin: warm, dry, and intact; no rashes or lesions noted Neck: No JVD Lungs: Breath sounds clear, respiratory effort normal Heart: Regular rhythm, +systolic murmur, 1+ edema noted Abdomen: Soft nontedner, +BSx4 Extremities: Distal pulses intact, MAEx4 Musculoskeletal: No deformities Neurologic/Psychiatric: Oriented to time, place & person and no gross focal neurologic deficits HISTORY Haydee Bustamante is an 78 year old female with pmhx of: Valvular Heart Disease Aortic stenosis (bicuspid) MS (moderate) 2+ TR HTN disseminated histoplasmosis (ongoing treatment with undetectable histo antigen 12/19) VTE s/p IVC filter (warfarin) GIB in July from duodenal ulcer s/p cautery RA (but off treatment d/t histoplasmosis) COPD ASSESSMENT/ IMPRESSION 78 year old female with severe symptomatic aortic stenosis whom is experiencing fatigue and bilateral lower extremity edema. NYHA FC: II Beta Pietro: no Is patient taking GLP-1 agonist? no Is patient taking SGLT2 Inhibitors? no Dental clearance: Completed and scanned in [facility] PPM: No Anticoagulation: Coumadin- Last dose taken 04/27/2024 Contrast Allergy: no Surgeon Note 03/25/2024 KCCQ-12: 03/25/2024 15 Ft W: 03/25/2024 PLAN AND RECOMMENDATIONS: Haydee Bustamante is scheduled for TF-TAVR on 05/02/[address] Saeed Instructed to go to Desk J1-1 REGISTRATION TODAY, after all appointment to register for the procedure. ON THE PROCEDURE DAY 05/03/2024, Report to Desk J1-2 at 8:30. Instructions: The Evening Before Procedure. Nothing to eat or drink after midnight starting on 05/02/2024 This includes candy/mints and tobacco products. Bathe or take a shower. Use the antibacterial soap. Hibiclens as provided. Mouth care: After brushing your teeth, gargle with the Listerine Provided. Instructions: The Morning of your Procedure. Okay for to take the following medications with sips of water in AM. PLEASE ONLY TAKE THESE MEDS. Inhalers id needed, Bathe or take a shower. Use the antibacterial soap. Hibiclens as provided. Mouth care: After brushing your teeth, gargle with the Listerine Provided. Additional information for the DAY OF SURGERY: - Hearing aides, glasses and dentures may be worn on the morning of surgery. - Wear your hair loosely. Do not use clips, pins or bands that bind your hair. Do not use hair spray. If you wear a wig or hairpiece, you will remove it before surgery. We will give you a head cover before you go into surgery. - No make-up or nail sammarinese. - No jewelry, including watches, wedding rings and any body jewelry. // Questions about preparing for your procedure? Call your doctors office: Dr. Orlin Meyer [phone] Dr. Gallito Cortez [phone] Dr. Jason Olea [phone] Dr. Juvencio Saeed [phone] Interventional Discharge Readiness Tool Your Anticipated Discharge Needs: If you are discharged the same day -You must have accommodations in [place] (if you live over 2 hours away) -Must have an adult (persons >18 years old) with you overnight -Follow up in the outpatient department the next day--this will be arranged at discharge If you stay overnight and are discharged the Next Day -Arrange you transportation/ride for around 9 AM - Recommended that you have an adult (persons >18 years old) with you overnight -Expect follow up in the outpatient department with in 1 week--this will be arranged at discharge. Patient/Family/Caregiver needs or concerns for discharge planning: None patient is aware. Activity Restrictions post procedure. Do not strain during bowel movements for 3 to 4 days after the procedure. This helps prevent bleeding from the catheter-insertion site. Do not lift anything that weighs more than 10 pounds or push or pull heavy objects for the first 10to 14 days after the procedure. Do not do any strenuous activities for 5 days after the procedure. This includes most sports, such as jogging, golfing, playing tennis and bowling. You may climb stairs if needed, but walk up and down the stairs more slowly than usual. Gradually increase your activity level during the week after the procedure, when you should be backto your normal routine. Do not have sexual intercourse. Ask your doctor when it is safe to resume sexual activity. Do not drive until you get the OK from your doctor. Ask your doctor at your follow-up visit about taking part in Stage II cardiac rehabilitation. Cardiac Rehab is a supervised program designed for patients who have certain heart procedures. You will receive a referral prior to discharge so that you can start the outpatient cardiac rehab program 2-3 weeks after you leave the hospital. Cardiac rehab will help you get stronger so you can returnto your routine activities, teach you about lifestyle changes, and nutrition by education and exercise. Completing your cardiac rehab program can greatly help your recovery and greatly reduce your risk of future heart problems. For [facility] call [phone] to schedule after you are home from your procedure. If you do not receive your referral, please call your wood products manufacturer's office for the order. I spent a total of 35 minutes on the date of the service which included preparing to see the patient, [id number] patient care, completing clinical documentation, obtaining and/or reviewing separately obtained history, performing a medically appropriate examination, counseling and educating the pat ient/family/caregiver, and communicating results to the patient/family/caregiver. Monica Aguila APRN.FINANCIAL ANALYSIS ADVISOR documented in this encounterKn[facility]03-12-2025 History of Present illness Narrative* Ursula Rosario RT(R) - 04/30/2024 12:00 PM EDT Radiology Service Progress Note PATIENT NAME: Haydee Bustamante DATE OF SERVICE: April 30, 2024 TIME: 11:27 AM PATIENT IDENTITY VERIFICATION COMPLETED USING TWO (2) IDENTIFIERS: Name and Date of confirmedby patient verbally. FALL SCREENING: Has the patient had 2 falls in the last year or 1 fall with injury or currently using an Ambulatory Assistive Device (Walker, Cane, Wheelchair, Crutches, etc.)? No PATIENT GENDER DATA: Assigned female at . status: : No status:NO. 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 This recurrence was found as it was starting to be worked up by her nursing director in February 2023 and we started therapy again when she was transferred to [facility] Due to massive hemoptysis found out to be COVID-positive. She was treated with remdesivir and dexamethasone and then put back on itraconazole March 19 for her histoplasma recurrence. She had previous disseminated histoplasmosis [facility] Currently doing well with the itraconazole. She is as active as she can expect. For 3 months now she is on methotrexate and sulfasalazine and not on a biologic. They withheld immunosuppressive therapy till she had been on the itraconazole for a while and she says right now her rheumatoid arthritis is much better. Although she still can walk it is slow and painful but no redness or swelling like before. She is not able to act in place unless she has a roll where she is pretty much staying in [address] 100% compliant with itraconazole and monitoring labs and no problems with it No persistent fevers, chills, myalgias, pulmonary symptoms, new pains Other complicating issues include the fact that she will be getting a TAVR next week at [facility] due to aortic valve problems. Her bronchiectasis and COPD is stable with a daily inhaler Complicating problem of warfarin use Blood pressure usually controlled on meds a little high right now but she says she was anxious trying to get in here traffic was a problem Vaccine counseling-likes to stay up-to-date Immunization History Administered Date(s) Administered COVID-19 original vaccine, age 12+ yr, monovalent (PFIZER-[employer]me[employer]TECH - ARIAS TOP) 07/11/2021 COVID-19 original vaccine, age 12+ yr, monovalent (TMMI ([employer]-BIONTECH - PURPLE TOP) 04/22/2020 05/13/2020 11/09/2020 11/21/2020 COVID-19 vaccine, age 12+ yr (PFIZER-BIONTECH COMIRNATY) 01/04/2023 11/22/2023 COVID-19 vaccine, age 12+ yr, bivalent (PFIZER-BIONTECH) 11/10/2021 TD Adult 11/06/2019 diphtheria tetanus (DT) vaccine, pediatric 09/22/1999 influenza (HD-IIV3) vaccine, age 65+ yr, high dose, trivalent, PF (FLUZONE HIGH-DOSE) 11/10/2014 12/13/2015 01/31/2017 11/27/2017 10/26/2018 11/25/2018 11/03/2019 11/21/2020 11/18/2021 11/22/2023 influenza (HD-IIV4) vaccine, age 65+ yr, high dose, quadrivalent, PF (FLUZONE HIGH-DOSE) 11/06/2019 11/09/2020 11/10/2021 10/27/2022 influenza (IIV3) vaccine, age 6 mo - 64 yr, trivalent (AFLURIA, FLULAVAL, FLUVIRIN, FLUZONE) 11/24/2013 influenza (LAIV3) vaccine, trivalent, live, intranasal (FLUMIST) 12/08/2013 02/07/2017 influenza vaccine, unspecified formulation 10/29/2008 11/23/2010 11/10/2011 11/18/2012 influenza vaccine, whole virus 01/10/2008 pneumococcal (PCV7) vaccine, 7 valent (PREVNAR 7) 12/08/2013 pneumococcal conjugate (PCV13) vaccine, 13 valent (PREVNAR 13) 03/30/2014 pneumococcal polysaccharide (PPV23) vaccine, 23 valent (PNEUMOVAX 23) 03/24/2013 12/08/2013 11/28/2016 12/13/2016 02/07/2017 respiratory syncytial virus (RSV) vaccine, adjuvanted (AREXVY) 08/01/2023 tetanus diphtheria (Td) vaccine, age 7+ yr, 5 Lf tetanus, PF (TENIVAC) 11/06/2019 tetanus diphtheria pertussis (Tdap) vaccine, age 7+ yr (ADACEL, BOOSTRIX) 10/07/2009 tuberculin skin test (TST-PPD), purified protein derivative, intradermal 06/24/2007 07/09/2007 zoster (RZV) vaccine, recombinant (SHINGRIX) 07/23/2018 11/28/2018 08/01/2023 Social History Tobacco Use Smoking status: Former Current packs/day: 0.00 Average packs/day: 1 pack/day for 10.0 years (10.0 ttl pk-yrs) Types: Cigarettes Start date: 02/19/1979 Quit date: 02/19/1989 Years since quittin.2 Smokeless tobacco: Never Tobacco comments: Late heavy smoker. Vaping Use Vaping status: Never Used Substance Use Topics Alcohol use: Yes Comment: occasional Drug use: No Current Outpatient Medications Medication Sig Dispense Refill sulfaSALAzine EC (AZULFIDINE EN) 500 mg EC tablet Take 1,000 mg by mouth two times a day. warfarin (COUMADIN) 1 mg tablet Take 6 mg and 5 mg all other days or as directed. 30 tablet 6 warfarin (COUMADIN) 5 mg tablet Take 1 tablet by mouth once daily. or as directed 90 tablet 3 diclofenac (VOLTAREN) 1 % topical gel Apply 2 g to affected area four times daily. Both knees 50 g 1 tiotropium bromide (SPIRIVA RESPIMAT) 2.5 mcg/actuation inhaler Inhale 2 Puffs as instructed once daily. Inhale two puffs once daily. 3 Each 3 potassium chloride ER (KLOR-CON M20) 20 mEq tablet Take 1 tablet by mouth two times a day. 180 tablet 3 gabapentin (NEURONTIN) 300 mg capsule Take 1 capsule by mouth two times a day. 180 capsule 3 fluticasone-salmeterol (WIXELA INHUB) 250-50 mcg/dose inhaler Inhale 1 Puff as instructed two timesa day. 3 Each 3 albuterol HFA (PROAIR HFA) 90 mcg/actuation inhaler Inhale 2 Puffs as instructed every 4 hours as needed. 1 Each 2 FOLIC ACID ORAL Take by mouth. fluticasone (FLONASE) 50 mcg/actuation nasal spray Use 1 [place] in each nostril once daily. 3 Each 3 vit A,C,A-Qvvj-Kzepxf (OCUVITE PRESERVISION) 2,148 mcg-113 mg-45 mg-17.4mg tab Take 2 tablets by mouth daily with breakfast. Cholecalciferol, Vitamin D3, 1,000 unit ORAL Cap Take 1 capsule by mouth once daily. 1 capsule 0 omega-3 fatty acids/vitamin e(FISH OIL 1,000 MG CAP) Take one(1) capsule daily. 0 THERAPEUTIC MULTIVITAMIN TAB Take one(1) tablet daily. 0 methotrexate 2.5 mg tablet Take 4 tablets by mouth every Sunday. clindamycin (CLEOCIN) 300 mg capsule Take 1 capsule by mouth every 8 hours for 15 doses. 15 capsule0 aspirin 81 mg chewable tablet Take 1 tablet by mouth once daily. 81mg baby aspirin till INR is therapeutic 30 tablet 0 spironolactone (ALDACTONE) 25 mg tablet Take 1 tablet by mouth once daily. 30 tablet 2 Current Facility-Administered Medications Medication Dose Route Frequency Provider Last Rate Last Admin perflutren lipid microspheres 1.3 mL in NaCl (PF) 0.9% 10 mL injection (DEFINITY) INTRAVENOUS DIRECTED PRN Juvencio Saeed MD sodium chloride 0.9 % (flush) 10 mL (BD POSIFLUSH) 10 mL INTRAVENOUS DIRECTED PRN Juvencio Saeed MD sodium chloride 0.9 % (flush) 10 mL (BD POSIFLUSH) 10 mL INTRAVENOUS DIRECTED PRN Siddharth, GregoryCharles, DO ALLERGIES Allergen Reactions Penicillins Hives PAST MEDICAL HISTORY Diagnosis Date Anemia Bone marrow involvement with histoplasmosis Aortic stenosis COPD (chronic obstructive pulmonary disease) (HCC) Disseminated histoplasmosis Colitis, immunosuppression, 01/2018. Diverticulosis of colon (without mention of hemorrhage) Diverticulosis DVT, recurrent, lower extremity, acute (HCC) 12/10/2014 GERD (gastroesophageal reflux disease) Hiatal hernia 02/25/2018 Hypertension Lung nodule Macular degeneration Mitral stenosis 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 rheumatoid factor (HCC) 03/07/2015 Dr. Hurley ([facility]) Tricuspid regurgitation PAST SURGICAL HISTORY Procedure Laterality Date COLONOSCOPY [...] SPINE FUSN,POST INTERBODY 2011 Dr. Armando at [facility]. 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 Current Use of Anticoagulant Therapy Hnp (Herniated Nucleus Pulposus), Lumbar Atrophic Vaginitis Ganglion Cyst Essential Hypertension Rheumatoid Arthritis (Hcc) Pain in Right Hip Low Back Pain With Right-Sided Sciatica History of Recurrent Deep Vein Thrombosis (Dvt) Ddd (Degenerative Disc Disease), Lumbar Spondylolisthesis of Lumbar Region Iron Deficiency Anemia Due to Chronic Blood Loss Disseminated Histoplasmosis Aortic Valve Stenosis Lung Nodule Bronchiectasis Without Complication (Hcc) Copd Without Exacerbation (Hcc) Pneumatosis Intestinalis Covid-19 Hemoptysis Gram-Negative Infection Anaerobic Bacterial Infection History of Immunosuppressive Therapy History of Penicillin Allergy Counseling, Unspecified Histoplasmosis Nonrheumatic Mitral Valve Stenosis Pericardial Effusion 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 Prior pulmonary issues when we restarted histoplasma therapy are now much better. BP 146/84 Pulse 103 Temp (Src) 97.9 (Temporal) Resp 18 Ht 5' 3" (1.60m) Wt 134 lb 7.7 oz (61.0kg) SpO2 97% BMI 23.83 kg/(m^2). Physical exam- General-afebrile, VSS, appropriately conversant nontoxic look. No distress. Converses quite well HEENT-unremarkable externally Mouth-clear Neck-supple Lymph nodes-none palpable in the neck, periclavicular Heart-regular without murmur Lungs-clear Abdomen-soft, nontender, no HSM Joints-no acute change Neurologically- no gross motor deficits seen in extremities or motor cranial nerves Skin-no drug rash DATA- August 2023 CT chest with the micronodular changes that have resolved. Stable right middle lobe bronchiectasis and fibrosis Creatinines have been stable and periodic liver enzymes fine WBC and platelets fine December 20, 2023 urine histoplasma antigen was negative after being positive at 2.8 in February 2023when the recurrence was rediscovered. She was 0.4 or slightly positive but decreasing in August 2019 ASSESSMENT/PLAN: 1. Disseminated histoplasmosis (Primary) This is a recurrence due to the need for immunosuppression for her aggressive rheumatoid arthritis.She is on itraconazole with excellent clinical control. This can be followed with histoplasma urineantigens - HISTOPLASMA AG URINE; Future 2. Bronchiectasis without complication (HCC) Can allow for opportunistic infections but stable 3. COPD without exacerbation (HCC) Also could interfere with pulmonary phase of opportunistic infections but is stable 4. Rheumatoid arthritis with positive rheumatoid factor, involving unspecified site (HCC) Big complication is that is a great life interference and needs immunosuppressive therapy for her to function but that can allow the recurrent history 5. History of immunosuppressive therapy Still on but not a biologic currently 6. History of penicillin allergy Can interfere with care depending on the infection 7. Encounter for long-term (current) use of antibiotics Tolerates 8. Counseling, unspecified Discussed all that with her and since this is a recurrent disseminated case we may be going 1 year of treatment. Will get recurrent histoplasma antigen checks Numerous studies reviewed here and elsewhere also including any provider notes available to look atother issues per imaging results also reviewed and will be ordered again down the road Return in about 6 months (around 10/22/2024). [facility] History of Present illness Narrative* Leandra Venegas APRN.CNS - 04/16/2024 9:13 AM EST Images from the original note were not included. documented in this encounterKnox [facility]02-[facility]25 History of Present illness Narrative* Leandra Venegas APRN.CNS - 04/15/2024 12:44 PM EST I spoke with Haydee Bustamante on the phone. Will proceed with the following: TAVR procedure: SundayMay 02 Pre-op testing: SundayApril 30 No fasting is needed on pre-op day. Contrast Allergy: no Stop taking anticoagulation: Warfarin- stop taking on Sunday04/28/2024. Cristalwabryant/Betsy/Christophe: Hold DOAC 24 hours prior to procedure. If GFR <30, hold DOAC 48 hoursprior to procedure Emmie: Hold DOAC the night before Beta-Pietro /Calcium channel Therapy to be stopped: (Dr. Olea only). GLP-1 agonist: no SGLT2 Inhibitors: no Dental clearance: she said this was completed. Can follow-up with her local dentist. Jasmyn Esposito María Philippi [phone] Pacemaker evaluation: N/A Shante, Please schedule Haydee Bustamante [phone] for COMMERCIAL TF- TAVR ( CARLYN) Procedure on: Thursday May 02, 2024 Lab/CXR/EKG Appointment: SundayApril 30 Please schedule STRUCTURAL [facility]VE [facility] Visit on: SundayApril 30 Date of J4-1 Anesthesia only: SundayApril [address] lab schedule on : Thursday May 02, 2024 at 8:30 AM CPT Code: 28706 Diagnosis Code: I35.0 ROLL ICER: Dr. Saeed Performing Physician: Dr. Saeed OR: 81 Surgeon: Dr. Francis Please schedule bed reservation for post procedure-(should be a TCI) EVAN schedule- intra/op Patient also needs INSURANCE PRECERTIFICATION ADL SCORE___6 SURVIVAL RATE GREATER THAN 1 YEAR____Y___(LOOKING FOR A YES) EF ___N__(GREATER THAN 50%) Thank you. Leandra Venegas APRN.CNS Request sent to scheduling. documented in this encounterKn[facility]02-[facility]25 Telephone encounter Note * Telephone Encounter - Leandra Venegas APRN.CNS - 04/15/2024 12:12 PM EST Tried to call patient to schedule TAVR procedure. Left message for her to call the office. Leandra Venegas APRN.CNS [facility]02-[facility] Miscellaneous Notes* Telephone Encounter - Leandra Venegas APRN.CNS - 04/15/2024 12:12 PM EST Tried to call patient to schedule TAVR procedure. Left message for her to call the office. eLandra Venegas APRN.CNS documented in this encounterKnox [facility]02-24-2025 History of Present illness Narrative* Pili Benitez, PAULA - 04/14/2024 3:58 PM EST CDM ENROLLMENT Provider Action / FYI: N/A Patient identified by name and date of . Discussed care with patient. Spoke with the pt. At this time. She was engaged and agreeable to have ongoing discussion and education regarding her health conditions. The pt. Is independent and lives at home alone. She does still drive. She uses a walker in the house to get around as well. 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 and she has a goal to get back to volunteering as it is something she is passionate about. Neighbors nearby are very helpful to her when she needs help The pt. Is very active. She still drives and likes to go see plays regularly Program Details Chronic Disease Management Status: Enrolled Effective Dates: 04/14/2024 - present Responsible Staff: Pili Benitez RN Support and Services: Chronic Obstructive Pulmonary Disease (COPD), Hypertension, Congestive Heart Failure (CHF) Assessments CDM Assessment Medications: Do you have any questions about taking your medications or which medications you should be taking?:No Do you need any medication refills at this time, including any of the medication you might take only when needed?: No Social: It can be normal to feel anxious or down during a time like this. Would you like to talk to a mental health professional about how you have been feeling?: No Symptoms: Are you experiencing any new or worsening symptoms that you need to talk about today?: No ADLs Patients can perform the following activities without help: Dressing: Yes Bathing: Yes Doing laundry: Yes Climbing a flight of stairs: No Walking briskly: No Instrumental activities of daily living Do you drive a car?: Yes Do you need help from others to take care of things inside the house, for example: laundry, house cleaning, preparing meals?: No Do you need help from others with errands outside the house, for example: shopping for groceries orclothes, going medical appointments?: No Fall Risk One or more falls in the last year:: No Any near falls in the last year?: No Advised to use a cane or walker to get around safely:: No Feels unsteady when walking:: No Steadies self on furniture while walking at home:: No Worried about falling:: Yes Needs to push with hands when rising from a chair:: Yes Has trouble stepping up onto a curb:: Yes Often has to webber to the toilet:: No Has lost some feeling in feet:: No Takes medicine that makes him/her feel lightheaded or more tired than usual:: No Takes medicine to sleep or improve mood:: No SDOH Financial Resource Strain How hard is it for you to pay for the very basics like food, housing, medical care, and heating?: Not very hard Housing Stability In the last 12 months, was there a time when you were not able to pay the mortgage or rent on time?: No At any time in the past 12 months, were you homeless or living in a halfway (including now)?: No Transportation Needs In the past 12 months, has lack of transportation kept you from medical appointments or from getting medications?: No In the past 12 months, has lack of transportation kept you from meetings, work, or from getting things needed for daily living?: No Food Insecurity Within the past 12 months, the food you bought just didn't last and you didn't have money to get more.: Never true [employer] In the past 12 months has the [employer], gas, oil, or water company threatened to shut off services in your home?: No Tobacco Use Patient reports that she quit smoking about 35 years ago. Her smoking use included cigarettes. She started smoking about 45 years ago. She has a 10 pack- year smoking history. She has never used smokeless tobacco. Interventions The following were addressed during this visit: - Initial enrollment outreach - Month 1: Provide COPD Education: Meter Dose Inhaler/How to Use - Month 1: Provide HTN Education: When to call your Doctor, When to seek Emergency Care - Intake assessments completed: ADLs, Fall Risk, SDOH - General education provided (managing stress, where to go/how to contact, etc.) - Annual Medicare Wellness visit addressed - Schedule Annual Wellness Visit - Month 1: Provide General Education: Smoking Cessation - Month 1: Provide General Education: Managing Stress & Anxiety - Month 1: Provide General Education: Where to Go for Care - Month 1: Provide General Education: How to Contact Your Physician Team Disposition Based on batch roller operator, the following disposition is advised: No action needed Pili Benitez RN April 14, 2024 4:01 PM documented in this encounterKn[facility]02-15-2025 History of Present illness Narrative* Juvencio Saeed MD - 04/05/2024 4:01 PM EST Interventional Cardiology Staff Note Dr. Saeed receives payments from several device companies for educational activities, advisory boardduties, consulting, and/or proctoring. The companies include: [employer], [employer], and [employer]. A product by [employer], [employer], [employer], or a competitor, may be used in this patient's care. Dr. Saeed does not receive any money for products he or any other [facility] physicians prescribe or use. Dr. Saeed's choice on which product used in this patient's case is or was not influenced by his relationship with any company. Dr. Saeed selected the product that in his hands is believed to be the best option for this patient's treatment. This was discussed with the patient. Juvencio Saeed MD, MSc documented in this encounterKnox [facility] Hospital02-14-2025 History of Present illness Narrative* Tracey Heller APRN.CNP - 04/04/2024 6:21 AM EST Bay Heller APRN.SANTY * Melissa Means RN - 04/03/2024 1:48 PM EST patient had inr completed at [facility] patients inr is 1.7 (patients inr range is 1.7-2.2) patient is currently taking 6mg Thurs,Sat and 5mg all other days patients last dose change was on 01/10/24 due to a low level of 1.5 (dose at that time was 6mg Thurs and 5mg all other days) patient has had no changes in medication and no missed doses and no change in diet Advised patient to continue on the same dose(s) and that they would only be contacted regarding dosage and follow up instructions after review with provider, if a change is needed. Written instructions given and patient verbalized understanding. Presently scheduled in 4 weeks (05/01/24) for follow up INR. documented in this encounterKn[facility]02-13-2025 Telephone encounter Note * Telephone Encounter - Alisa Allen RN - 04/03/2024 7:35 AM EST TAVR Meeting on March 31 showed the following recommendation: Outcome: Haydee Bustamante history and imaging were reviewed by the physicians in attendance. Has disseminated histoplasmosis and RA. had very significant symptoms when off of medication for RA and histoplasmosis, but symptoms have been better now that she's back on meds. Ct scan reviewed. Small annulus. Has narrow conduction. Also has mitral disease. Echo reviewed. The collaborative recommendation would be Underfilled 23 S3 vs 25 CARLYN and address mitral in the future The patient will be contacted in the next few days/weeks to discuss the team recommendations. TAVR procedure scheduling will be handled by: CVM coordinator Surgical referral being closed as patient is going to be scheduled for a TAVR. Alisa Allen RN, BSN Nurse Drawer In [place]oom for Dr. Bartolome Francis [facility]02-13-[facility] Miscellaneous Notes* Telephone Encounter - Alisa Allen RN - 04/03/2024 7:35 AM EST TAVR Meeting on March 31 showed the following recommendation: Outcome: Haydee Bustamante history and imaging were reviewed by the physicians in attendance. Has disseminated histoplasmosis and RA. had very significant symptoms when off of medication for RA and histoplasmosis, but symptoms have been better now that she's back on meds. Ct scan reviewed. Small annulus. Has narrow conduction. Also has mitral disease. Echo reviewed. The collaborative recommendation would be Underfilled 23 S3 vs 25 CARLYN and address mitral in the future The patient will be contacted in the next few days/weeks to discuss the team recommendations. TAVR procedure scheduling will be handled by: CVM coordinator Surgical referral being closed as patient is going to be scheduled for a TAVR. Alisa Allen RN, BSN Nurse Drawer In [place] Loom for Dr. Bartolome Francis * Telephone Encounter - Karen Nunez - 04/02/2024 1:44 PM EST Images from the original note were not included. LOCAL PATIENT Received [place] Email from Dr. Christophe Bustamante is being referred to Bartolome Francis M.D. by Juvencio Saeed [id number] [place] [facility] [address] Patient diagnosis/Reason for consult: Aortic Valve Stenosis; Chronic Heart Failure Referral triage process explained: N/A Patient will receive a call from Cardiac NPM after triage review with surgeon to discuss any additional testing and/or consults that will be scheduled. Pt will then receive a call from our scheduling office for scheduling. Please call pt at [phone]. Patient Registration: Registration complete/updated: yes Insurance card(s) scanned in [facility] with in the past year: Yes: Date: 10/18/2023 Pt's [employer] is active. Ok to communicate to pt via [employer] not asked Medical Records: Records in [facility] (internal CC records): Yes Imaging in [facility] (internal CC records): Yes Care Everywhere - queried yes, downloaded Yes Linked Outside Organizations (list): Additional providers added to Care Teams: Yes Additional Notes/Comments: Internal Referral Enct routed to: Yes, Cardiac NPM for triage Karen Nunez documented in this encounterKnox [facility]02-12-2025 Telephone encounter Note * Telephone Encounter - Karen Nunez - 04/02/2024 1:44 PM EST Images from the original note were not included. LOCAL PATIENT Received [place] Email from Dr. Christophe Bustamante is being referred to Bartolome Francis M.D. by Juvencio Saeed [id number] [facility] [id number] Patient diagnosis/Reason for consult: Aortic Valve Stenosis; Chronic Heart Failure Referral triage process explained: N/A Patient will receive a call from Cardiac NPM after triage review with surgeon to discuss any additional testing and/or consults that will be scheduled. Pt will then receive a call from our scheduling office for scheduling. Please call pt at [phone]. Patient Registration: Registration complete/updated: yes Insurance card(s) scanned in [employer] with in the past year: Yes: Date: 10/18/2023 Pt's [employer] is active. Ok to communicate to pt via [employer] not asked Medical Records: Records in [facility] (internal CC records): Yes Imaging in [facility] (internal CC records): Yes Care Everywhere - queried yes, downloaded Yes Linked Outside Organizations (list): Additional providers added to Care Teams: Yes Additional Notes/Comments: Internal Referral Enct routed to: Yes, Cardiac NPM for triage Karen Nunez [facility]02-12-[facility] Telephone encounter Note* Telephone Encounter - David Hoffmann - 04/02/2024 9:16 AM EST [place] [facility] Work Phone: [phone] Miscellaneous Notes* Telephone Encounter - David Hoffmann - 04/02/2024 9:16 AM EST [place] * Telephone Encounter - Karen Nunez - 04/01/2024 4:53 PM EST Insurance Card(s) scanned into [employer] Please register/advise Thank You! documented in this encounterKnox [facility] Hospital02-11-2025 Telephone encounter Note * Telephone Encounter - Karen Nunez - 04/01/2024 4:53 PM EST Insurance Card(s) scanned into [employer] Please register/advise Thank You! [facility]02-10-[facility] History of Present illness Narrative* Estefania Ervin APRN.CNP - 03/31/2024 12:02 PM EST [facility] [place] [facility] Department of Cardiovascular Medicine SECTION OF INTERVENTIONAL CARDIOLOGY Date March 31, 2024 MULTI DISCIPLINARY TAVR TEAM MEETING [employer] Teams Meeting Team members: Dr. Cortez, Dr. Meyer, Dr. Saeed, Dr. Olea, Dr. Macdonald, Dr. Francis, Dr. Alba,Dr. Dodge, Dr. Gomes, Dr. Foster, Dr. Ann, Dr. Masters, Mya Ervin CNP. Evan March, SANTY, Jessi Mejia CNP, Cabrera Han RN PATIENT NAME: Haydee Bustamante DATE: 03/31/2024 Presenting Physician: Dr. Saeed Outcome: Haydee Bustamante history and imaging were reviewed by the physicians in attendance. Has disseminated histoplasmosis and RA. had very significant symptoms when off of medication for RA and histoplasmosis, but symptoms have been better now that she's back on meds. Ct scan reviewed. Small annulus. Has narrow conduction. Also has mitral disease. Echo reviewed. The collaborative recommendation would be Underfilled 23 S3 vs 25 CARLYN and address mitral in the future The patient will be contacted in the next few days/weeks to discuss the team recommendations. TAVR procedure scheduling will be handled by: CVM coordinator Estefania Ervin APRN.FINANCIAL ANALYSIS ADVISOR documented in this encounterKnox [facility] Hospital02-10-2025 History of Present illness Narrative* Yu Torres MA - 03/31/2024 10:42 AM EST POPULATION HEALTH NAVIGATION OUTREACH Action/ Last OV: 02/29/2024 No upcoming appts noted. Last Wellness Exam: Unknown Patient is due for: Annual Wellness Outcome: Left VM for patient to return call to schedule appointment/address care gaps.' MyChart message sent. 3rd Attempt - Letter printed. Reason for Outreach Care Gap/HCC or Scheduling Wellness Visits Care Gaps due: Medicare Annual Wellness Visit Patient Contacted: Unable or unnecessary to reach patient: Left message MyChart message sent Letter mailed Navigation Signature: Yu Torres MA March 31, 2024 10:42 AM documented in this encounterKnox [facility] Hospital02-05-2025 History of Present illness Narrative* Yu Torres MA - 03/26/2024 9:38 AM EST POPULATION HEALTH NAVIGATION OUTREACH Action/FYI Last OV: 02/29/2024 No upcoming appts noted. Last Wellness Exam: Unknown Patient is due for: Annual Wellness Outcome: Left VM for patient to return call to schedule appointment/address care gaps. MyChart message sent. Reason for Outreach Care Gap/HCC or Scheduling Wellness Visits Care Gaps due: Medicare Annual Wellness Visit Patient Contacted: Unable or unnecessary to reach patient: Left message MyChart message sent Navigation Signature: Yu Torres MA March 26, 2024 9:38 AM documented in this encounterKnox [facility] Hospital02-04-2025 History of Present illness Narrative* Bartolome Francis MD - 03/25/2024 3:45 PM EST Images from the original note were not included. Heart[facility] [place] DEPARTMENT OF CARDIAC SURGERY OUTPATIENT VISIT DATE March 25, 2024 OUTPATIENT VISIT SERVICE DATE: 03/25/2024 SERVICE TIME: 3:45 PM PCP: Claudine Durán [address] [place] [address] Referring Physician: Monica Aguila [id number] [facility] [id number] Patient Type: Consult Visit to determine Surgery: Yes HPI: Ms. Haydee Bustamante is a 78 year old female seen in consultation at the request of Monica Aguila for opinion regarding treatment options for , MS, TR. She is currently symptomatic and complains of shortness of breath. The Echocardiogram reveals EF 60%, 1-2+MR, mean 9, 2+TR, svr (mean 54). Cardiac catheterization shows 30-40% prox rPDA disease. CT shows small-moderate pericardialeffusion, moderate MAC . Last CT Result Conclusion CTA CHEST (GATED) W IVCON Exam End: 03/21/2024 10:57 AM (Final result) Impression: IMPRESSION: Aortic Annulus and valve anatomy as described above Normal thoracic and abdomiinal aorta.Atherosclerotic changes as in the body of the report.Minimum luminal diameter throughout: 7 mm Jack Machine Operator: [facility] Transcribe Date/Time: Mar 21 2024 11:22A Dictated by : CALIXTO BLACKWOOD MD This examination was interpreted and the report reviewed and electronically signed by: CALIXTO BLACKWOOD MD on Mar 21 2024 12:53PM EST Last ECHO Result Conclusion ECHO Collected: 01/18/2024 10:30 AM (Final result) Impression: CONCLUSIONS: - Exam indication: Pre TAVR procedure - The left ventricle is normal in size. Left ventricular systolic function is normal. EF = 60 5% (2D biplane) Left ventricular diastolic function was not evaluated. - The right ventricle is normal in size. Right ventricular systolic function is normal. - The left atrial cavity is severely dilated. - There is a small pericardial effusion adjacent to the left ventricle and right ventricle measuring 0.6 cm and a moderate pericardial effusion adjacent to the right atrium measuring 1.3 cm. The inferior vena cava appears dilated measuring 2.3 cm. The vessel decreases greater than 50 percent with inspiration. - There is moderate mitral stenosis caused by calcification - annular. The peak gradient is 18 mmHg and the mean gradient is 9 mmHg. MV area is 1.97 cm (1.28 cm /m ) by P1/2. Mild to moderate (1-2+) mitral valve regurgitation. - There is moderate (2+) tricuspid valve regurgitation. - Tricuspid aortic valve. There is severe aortic valve stenosis caused by calcified valve and restricted opening. AV area is 0.59 cm (0.39 cm /m ) by continuity, VTI. The peak gradient is 90 mmHg, the mean gradient is 54 mmHg and the dimensionless valve index is 0.20. - Estimated right ventricular systolic pressure is 47 mmHg consistent with moderate pulmonary hypertension. Estimated right atrial pressure is 8 mmHg based on IVC assessment. - Small to moderate pericardial effusion with no echocardiographic features of tamponade. - Exam was compared with the prior CC echocardiographic exam performed on 09/28/2023. Aortic valve gradients are higher and estimated RVSP is higher in today' study. * * * Final * * * Based on my evaluation she is a medium risk for OHS. Impression: ,MS, TR, MAC Plan:would recommend AVR/MVR (tissue), TV repair. The risks, benefits and anticipated outcomes of the procedure, the risks and benefits of the alternatives to the procedure, and the roles and tasks of the personnel to be involved, were discussed with the patient, and the patient consents to the procedure and agrees to proceed. We discussed the possibility that there could be two patients undergoing surgery in two separate rooms (concurrent surgery) and that I would be present for the critical components of all operations. We also discussed that in an emergency situation, a qualified backup surgeon is available and in the rare event of such aserious situation, that colleague might take over the operation. These findings will be communicated back to the requesting physician via electronic medical record Bartolome Francis MD documented in this encounterKn[facility]25 Instructions* Patient Instructions* Monica Aguila APRN.FINANCIAL ANALYSIS ADVISOR - 03/25/2024 11:06 AM EST Haydee- I have spoken with you regarding the evaluation process for TAVR. I explained to you that this is asurgical evaluation to determine the best treatment plan for aortic valve stenosis. I reviewed the commercially available Koroma Lifesciences valve and Medtronic valve, including the valve model. Pepe discussed the possibility of a research trial. I showed the animation of the TF procedure while explaining the procedure. I also reviewed the Sentinnel device. I also discussed possible complications which include: possible stroke, possible pacemaker and/or bleeding. SDM: A formal shared decision making discussion was conducted with the patient during which the benefitsand risks of the TAVR procedure were discussed along with consideration of the patient s values, preferences and wishes. Dental clearance: form given to the patient. There also also other alternative access options that may be discussed and recommended depending onyour clinical condition. Hospital stay following an alternative access, such as subclavian TAVR or CHRIS-TAVR , will vary upon the approach. I have discussed with Haydee Bustamante that once all of the testing has been completed, the results will be reviewed by the HR AVR team and He will be notified of the recommendations. If you are approvedfor TAVR, you may received a letter in the mail from the TAVR team to inform you of this recommendation. Phone notification following the team meeting could take up to 2-3 weeks. Scheduling of the TAVR procedure could take up to 6-8 weeks from the time of the team recommendations. We discussed pre-op planning which includes the need to come 1-2 days prior to surgery to have the following: An updated H&P with a provider in our office; pre-surgical labs/testing and meet with anesthesia. The duration of the procedure will last about 2 hours. Your Anticipated Discharge Needs: Same Day Discharge (Home if live in distance less than 2 hours. If greater than 2 hours exception would be to local hotel) - Evening after 5PM -Must have an adult (persons >18 years old) with you overnight -Follow up in OPD the next day Next Day Discharge -Transportation/ride by 9 AM - Recommended that you have an adult (persons >18 years old) with you overnight -Follow up in OPD with in 1 week Activity Restrictions post procedure. Do not strain during bowel movements for 3 to 4 days after the procedure. This helps prevent bleeding from the catheter-insertion site. Do not lift anything that weighs more than 10 pounds or push or pull heavy objects for the first 10to 14 days after the procedure. Do not do any strenuous activities for 5 days after the procedure. This includes most sports, such as jogging, golfing, playing tennis and bowling. You may climb stairs if needed, but walk up and down the stairs more slowly than usual. Gradually increase your activity level during the week after the procedure, when you should be backto your normal routine. Do not have sexual intercourse. Ask your doctor when it is safe to resume sexual activity. Do not drive until you get the OK from your doctor. Ask your doctor at your follow-up visit about taking part in Stage II cardiac rehabilitation. Cardiac Rehab is a supervised program designed for patients who have certain heart procedures. You will receive a referral prior to discharge so that you can start the outpatient cardiac rehab program 2-3 weeks after you leave the hospital. Cardiac rehab will help you get stronger so you can returnto your routine activities, teach you about lifestyle changes, and nutrition by education and exercise. Completing your cardiac rehab program can greatly help your recovery and greatly reduce your risk of future heart problems. For [facility] call [phone] to schedule after you are home from your procedure. If you do not receive your referral, please call your wood products manufacturer's office for the order. We also discussed signs and symptoms of increased shortness of breath and peripheral edema should be reported to the local physician right away and be treated accordingly, If hospitalization is required, then it should be done. We can be notified with this information and all efforts will be made to expedite procedure accordingly. It was nice to meet you, we will be in touch after the meeting. Kindly, Monica Aguila APRN.SANTY documented in this encounterKn[facility]02-04-2025 History of Present illness Narrative* Monica Aguila APRN.CNP - 03/25/2024 11:00 AM EST Images from the original note were not included. [facility] [place] [facility] Department of Cardiovascular Medicine SECTION OF INTERVENTIONAL CARDIOLOGY OUTPATIENT VISIT DATE March 25, 2024 OUTPATIENT VISIT TYPE ESTABLISHED FOLLOW UP Primary Metal Fabricator Welder: Dr. Saeed Chief Complaint: Patient here for cardiac follow up evaluation History of Present Illness: Patient is a 78 year old female who presents today for ongoing evaluation of valvular heart disease. Occasional swelling in bilateral lower extremities. She feels she fatigues easier than she used to. 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 She is still involved in shows quite often. She also hassome limitation due to her RA, but is still able to get around quite well. She rarely uses her cane. She lives alone but is independent in her daily activities. Denies: chest pain, orthopnea, palpitations, lightheadedness, syncope, cough, and wheezing CARDIOVASCULAR MEDICINE TESTIN03/24/2024 Cardiac Cath: Coronary Anatomy: Right Dominant Injection Site(s): Coronary Artery LMT: The LMT is normal. Additional Comment: LMT is normal and gives rise to the LAD and LCx. No evidence of obstructive CAD in the LMT. LAD: The LAD has mild diffuse disease. Additional Comment: LAD is a large caliber vessel which gives rise to a high diagonal D1 branch which has about 20-30% stenosis in the mid portion. No evidence of significant obstructive disease. LCX: The Circumflex has mild luminal irregularities. Additional Comment: LCx is a large caliber vessel which gives rise to the marginal branches, no evidence of obstructive CAD. Mild diffuse disease in the LCx. RAMUS: The Ramus is Absent. RCA: The right posterior descending artery RCA is narrowed 30 % - focal disease. Additional Comment: RCA is a large caliber vessel which gives rise to the rPDA and rPL branches. The rPDA in proximal portion has 30-40% stenosis. 03/21/2024 CT Scan: Aortic Annulus and valve anatomy as described above Normal thoracic and abdomiinal aorta.Atherosclerotic changes as in the body of the report.Minimum luminal diameter throughout: 7 mm 03/21/2024 Chest X-ray: Lines, tubes, and devices: IVC filter Lungs and pleura: No consolidation or signs of edema. Left basilar dense nodule reflecting granuloma seen on prior CT. No effusion Cardiomediastinal silhouette: Stable cardiomediastinal silhouette. Bones and soft tissues: Degenerative changes. Decreased bone density 01/18/2024 Echo: - Exam indication: Pre TAVR procedure - The left ventricle is normal in size. Left ventricular systolic function is normal. EF = 60 5% (2D biplane) Left ventricular diastolic function was not evaluated. - The right ventricle is normal in size. Right ventricular systolic function is normal. - The left atrial cavity is severely dilated. - There is a small pericardial effusion adjacent to the left ventricle and right ventricle measuring 0.6 cm and a moderate pericardial effusion adjacent to the right atrium measuring 1.3 cm. The inferior vena cava appears dilated measuring 2.3 cm. The vessel decreases greater than 50 percent with inspiration. - There is moderate mitral stenosis caused by calcification - annular. The peak gradient is 18 mmHg and the mean gradient is 9 mmHg. MV area is 1.97 cm (1.28 cm /m ) by P1/2. Mild to moderate (1-2+) mitral valve regurgitation. - There is moderate (2+) tricuspid valve regurgitation. - Tricuspid aortic valve. There is severe aortic valve stenosis caused by calcified valve and restricted opening. AV area is 0.59 cm (0.39 cm /m ) by continuity, VTI. The peak gradient is 90 mmHg, the mean gradient is 54 mmHg and the dimensionless valve index is 0.20. - Estimated right ventricular systolic pressure is 47 mmHg consistent with moderate pulmonary hypertension. Estimated right atrial pressure is 8 mmHg based on IVC assessment. - Small to moderate pericardial effusion with no echocardiographic features of tamponade. - Exam was compared with the prior CC echocardiographic exam performed on 09/28/2023. Aortic valve gradients are higher and estimated RVSP is higher in today' study. Echo 09/28/2023: - Exam indication: Limited for Pericardial Effusion - The left ventricle is normal in size. Left ventricular systolic function is normal. EF = 62 5% (2D biplane) Grade I left ventricular diastolic dysfunction. - The right ventricle is normal in size. Right ventricular systolic function is normal. - There is a small pericardial effusion adjacent to the left ventricle measuring 0.7 cm, a small pericardial effusion adjacent to the right ventricle measuring 0.6 cm and a moderate pericardial effusion adjacent to the right atrium measuring 1.2 cm. The inferior vena cava appears normal measuring 1.8 cm. The vessel decreases greater than 50 percent with inspiration. No apparent signs of cardiac tamponade. - There is moderate mitral stenosis. The peak gradient is 22 mmHg and the mean gradient is 10 mmHg. - There is moderate (2+) tricuspid valve regurgitation. - There is severe aortic valve stenosis. AV area is 0.94 cm (0.58 cm /m ) by continuity, VTI. The peak gradient is 64 mmHg, the mean gradient is 37 mmHg and the dimensionless valve index is 0.31. - Exam was compared with the prior OUTSIDE echocardiographic exam performed on 03/22/2023. No significant change with the pericardial effusion or valvular disease. EKG 01/02/2024: NORMAL SINUS RHYTHM BIATRIAL ENLARGEMENT ABNORMAL ECG Labs Latest Ref Rng 03/21/2024 03/24/2024 Protein, Total 6.3 - 8.0 g/dL 6.6 Albumin 3.9 - 4.9 g/dL 3.7 (L) Calcium 8.5 - 10.2 mg/dL 8.7 9.1 Bilirubin, Total 0.2 - 1.3 mg/dL 0.3 Alkaline Phosphatase 34 - 123 U/L 110 AST 13 - 35 U/L 21 ALT 7 - 38 U/L 22 Glucose 74 - 99 mg/dL 77 84 BUN 7 - 21 mg/dL 28 (H) 24 (H) Creatinine 0.58 - 0.96 mg/dL 0.54 (L) 0.53 (L) Sodium 136 - 144 mmol/L 137 139 Potassium 3.7 - 5.1 mmol/L 4.5 4.4 Chloride 98 - 107 mmol/L 104 105 CO2 22 - 30 mmol/L 24 25 Anion Gap 8 - 15 mmol/L 9 9 eGFR >=60 mL/min/1.73m 96 96 WBC 3.70 - 11.00 k/uL 8.03 RBC 3.90 - 5.20 m/uL 3.91 Hemoglobin 11.5 - 15.5 g/dL 10.9 (L) Hematocrit 36.0 - 46.0 % 34.1 (L) MCV 80.0 - 100.0 fL 87.2 MCH 26.0 - 34.0 pg 27.9 MCHC 30.5 - 36.0 g/dL 32.0 RDW-CV 11.5 - 15.0 % 23.3 (H) Platelet Count 150 - 400 k/uL 243 MPV 9.0 - 12.7 fL 10.5 Absolute nRBC <0.01 k/uL <0.01 Creatinine (POCT) 0.7 - 1.4 mg/dL 0.60 ! eGFR (POCT) mL/min/1.73 m2 >60 Legend: (L) Low (H) High ! Abnormal I have personally reviewed the above testing. [place] CARDIOMYOPATHY QUESTIONNAIRE (KCCQ-12) Activity: A. Showering/bathing: Extremely limited Quite a bit limited Moderately limited Slightly limited Not at all limited Limited for other reasons or did not do the activity B. Walking 1 block on level ground: Extremely limited Quite a bit limited Moderately limited Slightly limited Not at all limited Limited for other reasons or did not do the activity C.Hurrying or jogging (as if to catch a bus): Extremely limited Quite a bit limited Moderately limited Slightly limited Not at all limited Limited for other reasons or did not do the activity 2. Over the past 2 weeks, how many times did you have swelling in your feet, ankles or legs when you woke up in the morning? Every morning 3 or more times per week but not every day 1-2 times per week less than once a week never over the past 2 weeks 3. Over the past 2 weeks, on average, how many times did you has fatigue limited your ability to dowhat you wanted? All of the time Several times per day At least once per day 3 or more times per week but not every day 1-2 times per week less than once a week never over the past 2 weeks 4. Over the past 2 weeks, on average, how many times has shortness of breath limited your ability to do what you wanted? All of the time Several times per day At least once per day 3 or more times per week but not every day 1-2 times per week less than once a week never over the past 2 weeks 5. Over the past 2 weeks, on average, how many times have your been forced to sleep sitting up in achair or with at least 3 pillows to prop you up because of shortness of breath? Every night 3 or more times per week but not every day 1-2 times per week less than once a week never over the past 2 weeks 6. Over the past 2 weeks, how much has your heart failure limited your enjoyment of life? It has extremely limited my enjoyment of life it has limited my enjoyment of life quite a bit it has moderately limited my enjoyment of life It has slightly limited my enjoyment of life It has not limited my enjoyment of life at all 7. If you had to spend the rest of your life with your heart failure the way it is right now, how would you feel about this? Not at all satisfied Mostly dissatisfied Somewhat satisfied Mostly satisfied Completely satisfied 8. How much does your heart failure affect your lifestyle? Please indicated how your heart failure may have limited your participation in the following activities over the past 2 weeks? A. Hobbies, recreational activities Severely limited Limited quite a bit Moderately limited Slightly limited Did not limit at all Does not apply or did not do for other reasons. 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 C. Visiting family or friends out of your home Severely limited Limited quite a bit Moderately limited Slightly limited Did not limit at all Does not apply or did not do for other reasons. 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 NYHA FC: II Does patient have a Nickel allergy? No PLAN AND RECOMMENDATIONS: I have spoken with Haydee Bustamante regarding the evaluation process for TAVR. I explained to Haydee Bustamante that this is a surgical evaluation to determine the best treatment plan for aortic valve stenosis. I reviewed the commercially available Koroma Lifesciences valve and Medtronic valve, including the valve model. We also discussed the possibility of a research trial. I showed the animation of the TF procedure while explaining the procedure. I also reviewed the Sentinnel device. I also discussed possible complications which include: possible stroke, possible pacemaker and/or bleeding. SDM: A formal shared decision making discussion was conducted with the patient during which the benefitsand risks of the TAVR procedure were discussed along with consideration of the patient s values, preferences and wishes. Dental clearance: form given to the patient. There also also other alternative access options that may be discussed and recommended depending onyour clinical condition. Hospital stay following an alternative access, such as subclavian TAVR or CHRIS-TAVR , will vary upon the approach. I have discussed with Haydee Bustamante that once all of the testing has been completed, the results will be reviewed by the HR AVR team and He will be notified of the recommendations. If you are approvedfor TAVR, you may received a letter in the mail from the TAVR team to inform you of this recommendation. Phone notification following the team meeting could take up to 2-3 weeks. Scheduling of the TAVR procedure could take up to 6-8 weeks from the time of the team recommendations. We discussed pre-op planning which includes the need to come 1-2 days prior to surgery to have the following: An updated H&P with a provider in our office; pre-surgical labs/testing and meet with anesthesia. The duration of the procedure will last about 2 hours. Your Anticipated Discharge Needs: Same Day Discharge (Home if live in distance less than 2 hours. If greater than 2 hours exception would be to local hotel) - Evening after 5PM -Must have an adult (persons >18 years old) with you overnight -Follow up in OPD the next day Next Day Discharge -Transportation/ride by 9 AM - Recommended that you have an adult (persons >18 years old) with you overnight -Follow up in OPD with in 1 week Activity Restrictions post procedure. Do not strain during bowel movements for 3 to 4 days after the procedure. This helps prevent bleeding from the catheter-insertion site. Do not lift anything that weighs more than 10 pounds or push or pull heavy objects for the first 10to 14 days after the procedure. Do not do any strenuous activities for 5 days after the procedure. This includes most sports, such as jogging, golfing, playing tennis and bowling. You may climb stairs if needed, but walk up and down the stairs more slowly than usual. Gradually increase your activity level during the week after the procedure, when you should be backto your normal routine. Do not have sexual intercourse. Ask your doctor when it is safe to resume sexual activity. Do not drive until you get the OK from your doctor. Ask your doctor at your follow-up visit about taking part in Stage II cardiac rehabilitation. Cardiac Rehab is a supervised program designed for patients who have certain heart procedures. You will receive a referral prior to discharge so that you can start the outpatient cardiac rehab program 2-3 weeks after you leave the hospital. Cardiac rehab will help you get stronger so you can returnto your routine activities, teach you about lifestyle changes, and nutrition by education and exercise. Completing your cardiac rehab program can greatly help your recovery and greatly reduce your risk of future heart problems. For [facility] call [phone] to schedule after you are home from your procedure. If you do not receive your referral, please call your wood products manufacturer's office for the order. We also discussed signs and symptoms of increased shortness of breath and peripheral edema should be reported to the local physician right away and be treated accordingly, If hospitalization is required, then it should be done. We can be notified with this information and all efforts will be made to expedite procedure accordingly. I spent a total of 50 minutes on the date of the service which included preparing to see the patient, [id number] patient care, completing clinical documentation, obtaining and/or reviewing separately obtained history, counseling and educating the patient/family/caregiver, independently interpretin g results (not separately reported), and communicating results to the patient/family/caregiver. Monica Aguila APRN.CNP documented in this encounterKn[facility]02-04-[facility]25 History of Present illness Narrative* Cahcho Anaya RRT - 03/25/2024 9:43 AM EST PULM FUNCTION: Provider: Monica Aguila APRN.CNP Spirometry: 1 DLCO: 1 J- LAB # 1 - PFT documented in this encounterKnox [facility]02-04-2025 History of Present illness Narrative* Ken Lovelace RT(R) - 03/25/2024 9:00 AM EST RADIOLOGY SERVICE PROGRESS NOTE SERVICE DATE: 03/25/2024 SERVICE TIME: 8:38 AM PATIENT IDENTITY VERIFICATION COMPLETED USING TWO (2) STANDARD IDENTIFIERS: Name and Date of confirmed by patient verbally and Name and Date of confirmed by identification band FALL SCREENING: Has the patient had 2 falls in the last year or 1 fall with injury or currently using an Ambulatory Assistive Device (Walker, Cane, Wheelchair, Crutches, etc.)? No PATIENT GENDER DATA: .female : No ALLERGIES: Reviewed and unchanged MEDICATIONS REVIEWED: No PATIENT RELEVANT IMPLANT DATA REVIEWED: Not Applicable PATIENT PRESENTS WITH AN IMPLANTABLE OR ATTACHED DATA SCIENTIST: No CREATININE: Creatinine Date Value Ref Range Status 03/24/2024 0.53 (L) 0.58 - 0.96 mg/dL Final 03/21/2024 0.54 (L) 0.58 - 0.96 mg/dL Final Creatinine (POCT) Date Value Ref Range Status 03/21/2024 0.60 (A) 0.7 - 1.4 mg/dL Final Estimated Glomerular Filtration Rate Date Value Ref Range Status 03/24/2024 96 >=60 mL/min/1.73m Final Comment: Estimated Glomerular Filtration Rate (eGFR) is calculated using the 2020 CKD-EPI creatinine equation. This equation utilizes serum creatinine, sex, and age as parameters. The creatinine assay has traceable calibration to isotope dilution- mass spectrometry. Refer to KDIGO guidelines for clinical interpretation. In patients with unstable renal function, e.g. those with acute kidney injury, the eGFRmay not accurately reflect actual GFR. eGFR- Date Value Ref Range Status 07/07/2020 >60 Final P.O.C.T. RESULTS: N/A March 25, [address] PERFORMED: No IV SITE: Ambulatory: NE only - direct IV injection in the Left hand POST EXAM PIV STATUS: Not applicable PROCEDURE TYPE: NM INJECT: NM CARDIAC AMYLOID SPECT. 20.8 mCi Tc99m HDP. No other medications given.. ADMINISTRATION TIME: 8:34AM PATIENT DISCHARGED TO: Ambulatory patient, left NE department area. Is this a therapy: No A Diagnostic radioactive procedure has taken place, with no further precautions necessary other than routine body substance precautions. More information regarding radiation safety can be found usingthis link: [email or web address] SIGNATURE: SABRINA Denise) PATIENT NAME: Haydee Bustamante DATE: March 25, 2024 TIME: 8:38 AM PAGER/CONTACT #: [facility] Telephone encounter Note * Telephone Encounter - Caitlin Servin RN - 03/23/2024 3:04 PM EST CARDIOVASCULAR LAB INSTRUCTIONS: Readiness to Learn: Cognitive Ability: Alert and oriented Motivation To Learn: Interested Family/Significant Other Support: Unable to assess - Family not present Instruction Provided To: Patient Patient Learns Best By: Verbal Instruction Factors Affecting Learning: None Physical Limitations Affecting Learning: None Learning Response: Procedure: Left Heart Diagnostic Pre procedure education topics: Arrival time/NPO Status/Medications/Travel Instructions/Restrictions Patient/Family Response Evaluation: Verbalizes understanding Follow Up Plan and Medication: As directed by physician Instruction/Supplemental Material Given: Cardiac catheterization instructions, procedure information, hospital information, hotel information. Instructed By Caitlin Servin RN. In Department of CARDIOLOGY. [facility]02-02-[facility] Miscellaneous Notes* Telephone Encounter - Caitlin Servin RN - 03/23/2024 3:04 PM EST CARDIOVASCULAR LAB INSTRUCTIONS: Readiness to Learn: Cognitive Ability: Alert and oriented Motivation To Learn: Interested Family/Significant Other Support: Unable to assess - Family not present Instruction Provided To: Patient Patient Learns Best By: Verbal Instruction Factors Affecting Learning: None Physical Limitations Affecting Learning: None Learning Response: Procedure: Left Heart Diagnostic Pre procedure education topics: Arrival time/NPO Status/Medications/Travel Instructions/Restrictions Patient/Family Response Evaluation: Verbalizes understanding Follow Up Plan and Medication: As directed by physician Instruction/Supplemental Material Given: Cardiac catheterization instructions, procedure information, hospital information, hotel information. Instructed By Caitlin Servin RN. In Department of CARDIOLOGY. documented in this encounterKn[facility]01-31-[facility]25 History of Present illness Narrative* Yu Torres MA - 03/21/2024 2:37 PM EST POPULATION HEALTH NAVIGATION OUTREACH Action/ Last OV: 02/29/2024 No upcoming appts noted. Last Wellness Exam: Unknown Patient is due for: Annual Wellness Outcome: Left VM for patient to return call to schedule appointment/address care gaps. FANCRUhart message sent. Reason for Outreach Care Gap/HCC or Scheduling Wellness Visits Care Gaps due: Medicare Annual Wellness Visit Patient Contacted: Unable or unnecessary to reach patient: Left message MyChart message sent Navigation Signature: Yu Torres MA March 21, 2024 2:37 PM documented in [facility]Kn[facility]01-31-[facility] History of Present illness Narrative* Ursula Rosario RT(R) - 03/21/2024 11:30 AM EST Radiology Service Progress Note PATIENT NAME: Haydee Bustamante DATE OF SERVICE: March 21, 2024 TIME: 11:38 AM PATIENT IDENTITY VERIFICATION COMPLETED USING TWO (2) IDENTIFIERS: Name and Date of confirmedby patient verbally. FALL SCREENING: Has the patient had 2 falls in the last year or 1 fall with injury or currently using an Ambulatory Assistive Device (Walker, Cane, Wheelchair, Crutches, etc.)? No PATIENT GENDER DATA: Assigned female at . status: : No status:NO. PATIENT RELEVANT IMPLANT DATA REVIEWED: Not Applicable PATIENT PRESENTS WITH AN IMPLANTABLE OR ATTACHED DATA SCIENTIST: No RADIOLOGY DEPARTMENT: General X-ray: Exam(s) Completed: Chest X-Ray PERIPHERAL IV DATA: Not applicable SIGNED BY: RT Leslie(Ade) March 21, 2024 11:38 AM documented in this encounterKn[facility]01-31-[facility]25 History of Present illness Narrative* Candace Sotomayor RN - 03/21/2024 10:45 AM EST Radiology Service Progress Note DATE OF SERVICE: March 21, 2024 TIME: 10:31 AM PATIENT WEIGHT: 130LBS PATIENT IDENTITY VERIFICATION COMPLETED USING TWO (2) STANDARD IDENTIFIERS: Name and Date of confirmed by patient verbally and Name and Date of confirmed by identification band. FALL SCREENING: Has the patient had 2 falls in the last year or 1 fall with injury or currently using an Ambulatory Assistive Device (Walker, Cane, Wheelchair, Crutches, etc.)? Yes, Patient High Riskfor Falls What interventions were put in place to prevent falls during this visit? Yellow "Falls Risk Wristband" Applied PATIENT GENDER DATA: Assigned female at . status: : No status:NO. ALLERGIES: Reviewed and unchanged CONTRAST ALLERGY: No EXAM: CT -CONTRAST INDUCED NEPHROPATHY RISK FACTORS: Patient age > 60 years CREATININE: Creatinine Date Value Ref Range Status 10/11/2023 0.59 0.58 - 0.96 mg/dL Final 08/30/2023 0.64 0.58 - 0.96 mg/dL Final Creatinine (POCT) Date Value Ref Range Status 03/21/2024 0.60 (A) 0.7 - 1.4 mg/dL Final eGFR (POCT) Date Value Ref Range Status 03/21/2024 >60 mL/min/1.73 m2 Final eGFR- Date Value Ref Range Status 07/07/2020 >60 Final P.O.C.T. RESULTS: POC done: Yes, See Lab Tab March 21, 2024 TREATMENT: No Hydration needed. IV SITE: Ambulatory: A peripheral IV was started in the Right forearm with a Angio cath: 20 gauge. and A Saline lock was inserted per protocol IV SITE APPEARANCE: Clean,Dry and Intact SIGNATURE: Candace Sotomayor RN PATIENT NAME: Haydee Bustamante DATE: March 21, 2024 TIME: 10:31 AM * Brittaney Moreland RT(R) - 03/21/2024 10:45 AM EST Radiology Service Progress Note PATIENT NAME: Haydee Bustamante DATE OF SERVICE: March 21, 2024 TIME: 10:53 AM PATIENT IDENTITY VERIFICATION COMPLETED USING TWO (2) IDENTIFIERS: Name and Date of confirmedby patient verbally and Name and Date of confirmed by identification band. FALL SCREENING: Has the patient had 2 falls in the last year or 1 fall with injury or currently using an Ambulatory Assistive Device (Walker, Cane, Wheelchair, Crutches, etc.)? No PATIENT GENDER DATA: Assigned female at . status: : No status:NO. PATIENT RELEVANT IMPLANT DATA REVIEWED: Yes PATIENT PRESENTS WITH AN IMPLANTABLE OR ATTACHED DATA SCIENTIST: No RADIOLOGY DEPARTMENT: CT; Exam(s) Completed: Cardiac PERIPHERAL IV DATA: Site assessment: Clean,Dry and Intact, Site disposition Discontinued SIGNED BY: RT Clark(R) March 21, 2024 10:53 AM documented in this encounterKn[facility]01-31-[facility] History of Present illness Narrative* Juvencio Saeed MD - 03/21/2024 9:30 AM EST [facility] [place] [facility] Department of Cardiovascular Medicine SECTION OF INTERVENTIONAL CARDIOLOGY OUTPATIENT VISIT DATE March 21, 2024 OUTPATIENT VISIT TYPE NEW PRIMARY CARE PHYSICIAN: Claudine Durán [address] [place] [address] REFERRING PHYSICIAN: No referring provider defined for this encounter. CHIEF COMPLAINT: / TAVR evaluation HISTORY OF PRESENT ILLNESS: Ms. Bustamante is a 78 year old female who presents today for evaluation of and TAVR feasibility. Relevant history Valvular Heart Disease Aortic stenosis (suspected bicuspid) MS (moderate-severe, MV mean grad 9 mmhg) 2+ TR Small pericardial effusion Disseminated histoplasmosis (ongoing treatment with undetectable histo antigen 12/19) VTE s/p IVC filter (warfarin) GIB in July from duodenal ulcer s/p cautery RA (but off treatment d/t histoplasmosis) COPD HTN She saw Dr. Drew in December and has been referred for valvular heart disease: Patient reports at baseline she is very limited due to joint pain in hands, wrists "everywhere" since being off RA treatment for histoplasmosis. Symptoms have improved since restarting her RA medications. Uses a cane occasionally. Endorses fatigue, and minimal FLYNN with exertion - all chronic. At baseline lives at home alone with help from neighbors and friends - very active in mosque community. She denies chest pain, shortness of breath, dyspnea on exertion, orthopnea, PND, palpitations, lightheadedness, syncope, claudication, leg swelling, cough, and wheezing. Diet / Nutrition: regular Weight: stable Exercise: none PAST MEDICAL HISTORY Diagnosis Date Anemia Bone marrow involvement with histoplasmosis Aortic stenosis COPD (chronic obstructive pulmonary disease) (HCC) Disseminated histoplasmosis Colitis, immunosuppression, 01/2018. Diverticulosis of colon (without mention of hemorrhage) Diverticulosis DVT, recurrent, lower extremity, acute (HCC) 12/10/2014 GERD (gastroesophageal reflux disease) Hiatal hernia 02/25/2018 Hypertension Lung nodule Macular degeneration Mitral stenosis 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 rheumatoid factor (HCC) 03/07/2015 Dr. Hurley ([facility]) Tricuspid regurgitation PAST SURGICAL HISTORY Procedure Laterality Date COLONOSCOPY [...] SPINE FUSN,POST INTERBODY 2012 Dr. Armando at [facility]. Diskectomy and laminectomy PAST SURGICAL HISTORY OF 03/07/1999 removal facial lesion PAST SURGICAL HISTORY OF 08/17/2014 excision soft tissue mass left index finger TONSILLECTOMY PRIMARY/SECONDARY <AGE 14 TRANSCATH RETRIEVAL,PERCUT 12/28/2006 Social History Tobacco Use Smoking status: Former Current packs/day: 0.00 Average packs/day: 1 pack/day for 10.0 years (10.0 ttl pk-yrs) Types: Cigarettes Start date: 02/19/1979 Quit date: 02/19/1989 Years since quittin.1 Smokeless tobacco: Never Tobacco comments: Late heavy smoker. Vaping Use Vaping status: Never Used Substance Use Topics Alcohol use: Yes Comment: occasional Drug use: No FAMILY HISTORY Problem Relation Age of Onset Cancer Mother brain ALLERGIES Allergen Reactions Penicillins Hives MEDICATIONS: sulfaSALAzine EC (AZULFIDINE EN) 500 mg EC tablet^Take 1,000 mg by mouth two times a day.^Disp: ^Rfl: itraconazole (SPORANOX) 10 mg/mL solution^Take 20 mL by mouth two times a day.^Disp: 1200 mL^Rfl: 0 warfarin (COUMADIN) 1 mg tablet^Take 6 mg and 5 mg all other days or as directed.^Disp: 30tablet^Rfl: 6 (Patient taking differently: Take 1 mg by mouth once daily. Take 6 mg /Sunday and 5 mg all other days or as directed.) warfarin (COUMADIN) 5 mg tablet^Take 1 tablet by mouth once daily. or as directed^Disp: 90 tablet^Rfl: 3 diclofenac (VOLTAREN) 1 % topical gel^Apply 2 g to affected area four times daily. Both knees^Disp:50 g^Rfl: 1 tiotropium bromide (SPIRIVA RESPIMAT) 2.5 mcg/actuation inhaler^Inhale 2 Puffs as instructed once daily. Inhale two puffs once daily.^Disp: 3 Each^Rfl: 3 potassium chloride ER (KLOR-CON M20) 20 mEq tablet^Take 1 tablet by mouth two times a day.^Disp: 180 tablet^Rfl: 3 gabapentin (NEURONTIN) 300 mg capsule^Take 1 capsule by mouth two times a day.^Disp: 180 capsule^Rfl: 3 fluticasone-salmeterol (WIXELA INHUB) 250-50 mcg/dose inhaler^Inhale 1 Puff as instructed two timesa day.^Disp: 3 Each^Rfl: 3 albuterol HFA (PROAIR HFA) 90 mcg/actuation inhaler^Inhale 2 Puffs as instructed every 4 hours as needed.^Disp: 1 Each^Rfl: 2 loperamide (IMODIUM) 2 mg cap(s)^Take 1 capsule by mouth three times a day as needed for diarrhea for up to 7 days.^Disp: 20 capsule^Rfl: 0 Mucus Clearing Device (QUAKE VIBRATORY PEP) renetta^Provide 1 device^Disp: 1 Each^Rfl: 0 FOLIC ACID ORAL^Take by mouth.^Disp: ^Rfl: fluticasone (FLONASE) 50 mcg/actuation nasal spray^Use 1 [place] in each nostril once daily.^Disp: 3 Each^Rfl: 3 vit A,C,F-Hjkg-Nnthhm (OCUVITE PRESERVISION) 2,148 mcg-113 mg-45 mg-17.4mg tab^Take 2 tablets by mouth daily with breakfast.^Disp: ^Rfl: leucovorin (LEUCOVORIN) 15 mg tablet^Take 15 mg by mouth once daily.^Disp: ^Rfl: methotrexate 2.5 mg tablet^Take 2.5 mg by mouth every Sunday. PT takes 2 tablets in am and 1 tablets in pm^Disp: 12 tablet^Rfl: 0 Cholecalciferol, Vitamin D3, 1,000 unit ORAL Cap^Take 1 capsule by mouth once daily.^Disp: 1 capsule^Rfl: 0 omega-3 fatty acids/vitamin e(FISH OIL 1,000 MG CAP)^Take one(1) capsule daily.^Disp: ^Rfl: 0 THERAPEUTIC MULTIVITAMIN TAB^Take one(1) tablet daily.^Disp: ^Rfl: 0 spironolactone (ALDACTONE) 25 mg tablet^Take 1 tablet by mouth once daily.^Disp: 30 tablet^Rfl: 2 (Patient not taking: Reported on 01/02/2024) REVIEW OF SYSTEMS: GENERAL: no fever, no chills, and no change in weight HEENT: no headaches, no hearing loss, no difficulty swallowing, no visual changes, no nose bleeds SKIN: no rashes, no lesions, and no ulcers RESPIRATORY: SEE HPI CARDIOVASCULAR: See HPI GASTROINTESTINAL: no abdominal pain, no nausea, no vomiting, no difficulty or painful swallowing, and no melanotic stools GENITOURINARY: no dysuria, no frequency, and no nocturia MUSCULOSKELETAL: no joint pain, no joint swelling, no muscle pain or myalgias, and no pain with walking NEUROLOGIC: no numbness, no tingling, and no sensation of pins and needles HEMATOLOGY: no bruising easily, no prolonged bleeding, no anemia, and no cancer ENDOCRINE: no cold or heat intolerance, no polyuria, no polydipsia, no goiter, no diabetes, and no thyroid disease PSYCH: no sleep disturbance, no mood disorders, and no recent psychosocial stressors PHYSICAL EXAMINATION: BP 141/77 Pulse 96 Resp 18 Ht 5' 3" (1.60m) Wt 130 lb (59.0kg) SpO2 96[RA]% BMI 23.03 kg/(m^2). Gen: NAD. Pleasant affect. HEENT: JVP 7 cm at 45 degrees upright. EOMI. Chest: CTAB without w/r/r. Normal effort. CV: Normal S1, S2. No R/M/G. Abd: Non-distended. Ext: No BLE edema. Neuro: Motor exam grossly normal CARDIOVASCULAR MEDICINE TESTING: TTE 09/28/2023: - Exam indication: Limited for Pericardial Effusion - The left ventricle is normal in size. Left ventricular systolic function is normal. EF = 62 5% (2D biplane) Grade I left ventricular diastolic dysfunction. - The right ventricle is normal in size. Right ventricular systolic function is normal. - There is a small pericardial effusion adjacent to the left ventricle measuring 0.7 cm, a small pericardial effusion adjacent to the right ventricle measuring 0.6 cm and a moderate pericardial effusion adjacent to the right atrium measuring 1.2 cm. The inferior vena cava appears normal measuring 1.8 cm. The vessel decreases greater than 50 percent with inspiration. No apparent signs of cardiac tamponade. - There is moderate mitral stenosis. The peak gradient is 22 mmHg and the mean gradient is 10 mmHg. - There is moderate (2+) tricuspid valve regurgitation. - There is severe aortic valve stenosis. AV area is 0.94 cm (0.58 cm /m ) by continuity, VTI. The peak gradient is 64 mmHg, the mean gradient is 37 mmHg and the dimensionless valve index is 0.31. - Exam was compared with the prior OUTSIDE echocardiographic exam performed on 03/22/2023. No significant change with the pericardial effusion or valvular disease. TTE 01/18/24: CONCLUSIONS: - Exam indication: Pre TAVR procedure - The left ventricle is normal in size. Left ventricular systolic function is normal. EF = 60 5% (2D biplane) Left ventricular diastolic function was not evaluated. - The right ventricle is normal in size. Right ventricular systolic function is normal. - The left atrial cavity is severely dilated. - There is a small pericardial effusion adjacent to the left ventricle and right ventricle measuring 0.6 cm and a moderate pericardial effusion adjacent to the right atrium measuring 1.3 cm. The inferior vena cava appears dilated measuring 2.3 cm. The vessel decreases greater than 50 percent with inspiration. - There is moderate mitral stenosis caused by calcification - annular. The peak gradient is 18 mmHgand the mean gradient is 9 mmHg. MV area is 1.97 cm (1.28 cm /m ) by P1/2. Mild to moderate (1-2+) mitral valve regurgitation. - There is moderate (2+) tricuspid valve regurgitation. - Tricuspid aortic valve. There is severe aortic valve stenosis caused by calcified valve and restricted opening. AV area is 0.59 cm (0.39 cm /m ) by continuity, VTI. The peak gradient is 90 mmHg, the mean gradient is 54 mmHg and the dimensionless valve index is 0.20. - Estimated right ventricular systolic pressure is 47 mmHg consistent with moderate pulmonary hypertension. Estimated right atrial pressure is 8 mmHg based on IVC assessment. - Small to moderate pericardial effusion with no echocardiographic features of tamponade. - Exam was compared with the prior echocardiographic exam performed on 09/28/2023. Aortic valve gradients are higher and estimated RVSP is higher in today's study. EKG 01/02/2024: NORMAL SINUS RHYTHM BIATRIAL ENLARGEMENT ABNORMAL ECG GFR: 94 IMPRESSION AND RECOMMENDATIONS: Haydee Bustamante is a 78 year old female with the above history including rheumatoid arthritis, disseminated histoplasmosis, prior DVT (for which she is on Coumadin), prior GI bleeding, and COPD. She has severe calcific with a suspected bicuspid AV, with a rapid progression in from RUBY 0.94 in 09/2023, to 0.59 cm2 in 12/2023. She is mildly symptomatic with chronic fatigue and minimal FLYNN, though given this rapid progression and very severe , AVR is indicated. She also has moderate to severe calcific MS, with mean MV grad 9 mmHg, 1-2+ MR with HR 70's. Options include surgical AVR + MVR +/- CABG, vs TAVR with medical management of MS and screening for MV interventions electively following. She is functionally limited but more active now on DMARD agents. Rehab may be challenging but she would likely do well, and is motivated to follow whatever recommendation we make. She understands that if bicuspid anatomy is confirmed, TAVR may have limitations and higher risks but could be offered if anatomy is feasible. We will await gated CTA, LHC, NT pro BNP and CTS assessment. [facility] I personally interviewed, confirmed and edited the above information as obtained by others. Juvencio Saeed M.D., M.Sc., F.A.C.C., F.S.C.A.I. Staff, Interventional Cardiology [facility] Desk -3, [address] [place] [address] Office , toll-free [phone], [phone] Office Appointments: [phone], toll-free [phone], [phone] documented in this encounterKn[facility] Hospital01-10-2025 Instructions* Patient Instructions* Claudine Durán MD - 02/29/2024 5:43 PM EST .aisavs documented in this encounterKnox [facility] Hospital01-10-2025 History of Present illness Narrative* Claudine Durán MD - 02/29/2024 5:23 PM EST This note was created using [employer]. Subjective Haydee Bustamante is a 78 year old female. Patient presents with: F/U 4 month SUBJECTIVE: Haydee Bustamante is a 78 year old year old lady here today for 4 month follow up appointment for reviewof medical conditions. Haydee Bustamante is a 78-year-old female with a history of RA, COPD, and mitral valve issues, presenting for a 4-month follow-up. Haydee is scheduled for a TAVR on the of next month at the [facility]. She also has mitral valve issues, noting that her heart murmur is loud enough to be heard by others when auscultated. She experiences dyspnea with activity but reports limited activity due to pain and stiffness from RA. She carries a cane but rarely uses it. She denies significant swelling, though she notes mild swelling at the top of her socks, which is manageable with the right socks. Four weeks ago, she received a cortisone injection and was restarted on methotrexate by her scrap metal collector, Dr. Jane Montoya. She was also prescribed sulfasalazine, which has significantly improved her symptoms, allowing her to stand up without severe pain. She is currently taking 2 tablets twice daily. She is not taking Humira at this time, as her infectious disease doctor advised her to continue her current medication through this month. She has 2 boxes of Humira at home, good until June, but is uncertain if she will resume it. She is not taking Lasix and is unsure about spironolactone. She received her COVID and flu vaccines on the same day at [facility]. She reports some anxiety related to her upcoming surgery and recent life events, including a changein her email and bank account. She has a support system in place, including a friend who will accompany her to appointments and a medical power of specialty finishing utility person. She has advanced directives on file. She denies severe depression but reports being in a bad mood recently due to stress from her responsibilities with the [employer]. PAST MEDICAL HISTORY Diagnosis Date Anemia Bone marrow involvement with histoplasmosis Bronchiectasis ([facility]) COPD (chronic obstructive pulmonary disease) ([facility]) Disseminated histoplasmosis Colitis, immunosuppression, 01/2018. Diverticulosis of colon (without mention of hemorrhage) Diverticulosis DVT, recurrent, lower extremity, acute ([facility]) 12/10/2014 Esophageal reflux Hiatal hernia 02/25/2018 Hypertension Lung nodule Personal history of unspecified urinary disorder 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 rheumatoid factor ([facility]) 03/07/2015 Dr. Hurley ([facility]) Unspecified hemorrhoids without mention of complication Hemorrhoids Current Outpatient Medications Medication Sig sulfaSALAzine EC (AZULFIDINE EN) 500 mg EC tablet Take 1,000 mg by mouth two times a day. itraconazole (SPORANOX) 10 mg/mL solution Take 20 mL by mouth two times a day. warfarin (COUMADIN) 1 mg tablet Take 6 mg and 5 mg all other days or as directed. (Patienttaking differently: Take 1 mg by mouth once daily. Take 6 mg /Sunday and 5 mg all other days or as directed.) warfarin (COUMADIN) 5 mg tablet Take 1 tablet by mouth once daily. or as directed diclofenac (VOLTAREN) 1 % topical gel Apply 2 g to affected area four times daily. Both knees tiotropium bromide (SPIRIVA RESPIMAT) 2.5 mcg/actuation inhaler Inhale 2 Puffs as instructed once daily. Inhale two puffs once daily. potassium chloride ER (KLOR-CON M20) 20 mEq tablet Take 1 tablet by mouth two times a day. gabapentin (NEURONTIN) 300 mg capsule Take 1 capsule by mouth two times a day. fluticasone-salmeterol (WIXELA INHUB) 250-50 mcg/dose inhaler Inhale 1 Puff as instructed two timesa day. albuterol HFA (PROAIR HFA) 90 mcg/actuation inhaler Inhale 2 Puffs as instructed every 4 hours as needed. Mucus Clearing Device (QUAKE VIBRATORY PEP) renetta Provide 1 device FOLIC ACID ORAL Take by mouth. fluticasone (FLONASE) 50 mcg/actuation nasal spray Use 1 [place] in each nostril once daily. vit A,C,M-Yata-Tprzmz (OCUVITE PRESERVISION) 2,148 mcg-113 mg-45 mg-17.4mg tab Take 2 tablets by mouth daily with breakfast. methotrexate 2.5 mg tablet Take 2.5 mg by mouth every Sunday. PT takes 2 tablets in am and 1 tablets in pm Cholecalciferol, Vitamin D3, 1,000 unit ORAL Cap Take 1 capsule by mouth once daily. omega-3 fatty acids/vitamin e(FISH OIL 1,000 MG CAP) Take one(1) capsule daily. THERAPEUTIC MULTIVITAMIN TAB Take one(1) tablet daily. spironolactone (ALDACTONE) 25 mg tablet Take 1 tablet by mouth once daily. (Patient not taking: Reported on 01/02/2024) furosemide (LASIX) 20 mg tablet Take 1-2 tablets by mouth two times a day as needed. Take daily forx5 days and then can use as needed daily after that for swelling. (Patient not taking: Reported on 10/18/2023) itraconazole (SPORANOX) 100 mg capsule Take 2 capsules by mouth two times a day. (Patient not taking: Reported on 01/02/2024) loperamide (IMODIUM) 2 mg cap(s) Take 1 capsule by mouth three times a day as needed for diarrhea for up to [address] (PROTONIX) 40 mg tablet Take 1 tablet by mouth once daily. (Patient not taking: Reported on 02/29/2024) leucovorin (LEUCOVORIN) 15 mg tablet Take 15 mg by mouth once daily. Current Facility-Administered Medications Medication Dose Route Frequency perflutren lipid microspheres 1.3 mL in NaCl (PF) 0.9% 10 mL injection (DEFINITY) INTRAVENOUS DIRECTED PRN sodium chloride 0.9 % (flush) 10 mL (BD POSIFLUSH) 10 mL INTRAVENOUS DIRECTED PRN Review of Systems Objective BP 138/86 Pulse 85 Temp 37.1 C (98.8 F) Resp 16 Wt 58.7 kg (129 lb 6.6 oz) SpO2 97% BMI22.92 kg/m Physical Exam Constitutional: Appearance: Normal appearance. HENT: Head: Normocephalic. Eyes: Conjunctiva/sclera: Conjunctivae normal. Cardiovascular: Rate and Rhythm: Normal rate and regular rhythm. Heart sounds: Normal heart sounds. Pulmonary: Effort: Pulmonary effort is normal. Breath sounds: Normal breath sounds. Musculoskeletal: Right lower leg: No edema. Left lower le+ Edema present. Skin: General: Skin is warm and dry. Neurological: General: No focal deficit present. Mental Status: She is alert and oriented to person, place, and time. Psychiatric: Mood and Affect: Mood normal. Behavior: Behavior normal. Thought Content: Thought content normal. Judgment: Judgment normal. Assessment and Plan # Chronic heart failure with preserved ejection fraction (HFpEF) ([facility]) (I50.32) # Nonrheumatic aortic valve stenosis (I35.0) - Scheduled for TAVR on the of next month at the [facility]. - Reports significant heart murmur audible during auscultation. - No current edema noted; Lasix on hold. - Spironolactone therapy discontinued. - Follow-up with cardiology on the of this month. # Rheumatoid arthritis with positive rheumatoid factor, involving unspecified site ([facility]) (M05.9) - Under management by Dr. Jane Montoya at [facility]. - Resumed methotrexate and initiated sulfasalazine 2 tablets twice daily; significant improvement in pain and stiffness reported. - Recent corticosteroid injection provided additional relief. - Humira therapy currently discontinued. # COPD without exacerbation ([facility]) (J44.9) # Bronchiectasis without complication ([facility]) (J47.9) - Conditions are stable; no exacerbations reported. - Cleared for upcoming TAVR procedure. # Screening for depression (Z13.31) # Encounter for screening examination for other mental health and behavioral disorders (Z13.39) - Depression screening completed; no severe depression noted. - Mild anxiety related to upcoming surgery; no pharmacological or counseling interventions requiredat this time. Claudine Durán MD documented [facility] History of Present illness Narrative* Melissa Means RN - 02/29/2024 3:45 PM EST patient had inr completed at [facility] patients inr is 2.0 (patients inr range is 1.7-2.2) patient is currently taking 6mg Thurs,Sat and 5mg all other days patients last dose change was on 01/10/24 due to a low level of 1.5 (dose at that time was 6mg Thurs and 5mg all other days) patient has had no changes in medication and no missed doses and no change in diet Advised patient to continue on the same dose(s) and that they would only be contacted regarding dosage and follow up instructions after review with provider, if a change is needed. Written instructions given and patient verbalized understanding. Presently scheduled in 1 month (04/03/24) for follow up INR. documented in [facility]Kn[facility]01-02-[facility]25 Telephone encounter Note * Telephone Encounter - Jannet Aldana RN - 02/21/2024 8:31 AM EST Patient has been identified by name and date of : Yes Last office visit in this department: 12/18/2023 RX INSTRUCTIONS: Pharmacy initiated this request. No need to notify patient. Patient phones requesting refills as follows: Requested Prescriptions Pending Prescriptions Disp Refills itraconazole (SPORANOX) 10 mg/mL solution 1200 mL 0 Sig: Take 20 mL by mouth two times a day. Please review and advise. Jannet Aldana RN [facility] Work Phone: [phone] Miscellaneous Notes* Telephone Encounter - Jannet Aldana RN - 02/21/2024 8:31 AM EST Patient has been identified by name and date of : Yes Last office visit in this department: 12/18/2023 RX INSTRUCTIONS: Pharmacy initiated this request. No need to notify patient. Patient phones requesting refills as follows: Requested Prescriptions Pending Prescriptions Disp Refills itraconazole (SPORANOX) 10 mg/mL solution 1200 mL 0 Sig: Take 20 mL by mouth two times a day. Please review and advise. Jannet Aldana, RN documented in this encounterKn[facility]12-12-2024 History of Present illness Narrative* Jimbo Swanson APRN.CNS - 01/31/2024 4:15 PM EST Continue with Coumadin dose unchanged and check INR in 4 weeks * Melissa Means RN - 01/31/2024 2:06 PM EST patient had inr completed at [facility] patients inr is 1.9 (patients inr rnage is 1.7-2.2) patient is currently taking 6mg Thurs Sat and 5mg all other days patients last dose change was on 01/10/24 due to a low level of 1.5 (dost at that time was 6mg Thurs and 5mg all other days) patient has had no changes in medication and no missed doses and no change in diet Advised patient to continue on the same dose(s) and that they would only be contacted regarding dosage and follow up instructions after review with provider, if a change is needed. Written instructions given and patient verbalized understanding. Presently scheduled in 4 weeks (02/29/24 - pt has appt with pcp also this day) for follow up INR. documented in this encounterKn[facility]12-10-2024 History of Present illness Narrative* Ilda Miller RN - 01/29/2024 2:57 PM EST [facility] Telephonic Outreach Provider Candelaria/SHAYNE N/A 2nd attempt Contacted for: Routine Telephonic Outreach Contact made with patient: Yes Patient identified by name and date of . Discussed care with patient Are you experiencing any new or worsening symptoms you need to talk about today? No Disease Specific Do you check your blood pressure at home? No Do you have new or worsening shortness of breath with activity? No Do you have new or worsening cough? No Do you have new or worsening wheezing? No Do you need to use your rescue (Albuterol) inhaler or nebulizer more often than normal? 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 Routed to: No Action Needed PAN Education Provided this Outreach: No Appointments for Next 60 Days Date Time Provider Location Dept Phone 01/31/2024 10:30 AM ANGELACHRISTINA [facility] [phone] 02/29/2024 3:40 PM CLAUDINE DURÁN [facility] [phone] Ilda Miller RN January 29, 2024 3:01 PM Goals/Falls/ADL Update Contact made with patient: Yes Patient identified by name and date of . Discussed care with: patient Goal Setting I would like to take some time today to discuss your personal health goals. Yes, patient has goals. Capture the goal the patient wants to accomplish: Stay alive and less arthritis pain. Does the goal align with programs offered at the [facility]? No Patient accepts telephonic outreach. PAN Education Ordered -: No Thank you for your time today. I am excited to work together in managing your health! I will check back within in two weeks to see how things are going. If questions or concerns arise between phone calls, please reach out to your PCP s office. (Place in active status for inSight and place name in care team and update next patient outreach data to next business day two weeks from today s date) Most people know what to do to become healthier, yet struggle to put it into action on their own, It can be hard to maintain a healthy lifestyle, especially when life is so stressful. Can we connect you with a [facility] Shredder Tender Peat to find a program that could help you meet your goals? No Falls completed:Yes ADL's updated: Yes Ilda Miller RN January 29, 2024 3:32 PM documented in this encounterKnox [facility] Hospital12-02-2024 History of Present illness Narrative* Ilda Miller RN - 01/21/2024 1:25 PM EST [facility] Telephonic Outreach Provider Action/FYI N/A Contacted for: Routine Telephonic Outreach Contact made with patient: No, left message. Ilda Miller RN January 21, 2024 1:28 PM Goals/Falls/ADL Update Contact made with patient: No, left message. Ilda Miller RN January 21, 2024 1:28 PM documented in this encounterKn[facility]11-21-2024 History of Present illness Narrative* Jimbo Swanson APRN.INDUSTRIAL CHEMISTRY TEACHER - 01/10/2024 12:45 PM EST Coumadin 6mg and Sunday and 5mg all other days and recheck in 3 weeks due to the cc is closed at the 2 week jasmyn * Melissa Means RN - 01/10/2024 12:39 PM EST patient had inr completed at [facility] patients inr is 1.5 (patients inr range is 1.7-2.2) patient is currently taking 6mg Thurs and 5mg all other days patients last dose change was on 12/27/23 due to a low level of 1.5 (dose at that time was 5mg daily) patient has had no changes in medication except for coumadin and no missed doses and no change in diet recommend: patient change coumadin to 6mg Th,Sat and 5mg all other days and recheck in 3 weeks due to the cc is closed at the 2 week jasmyn patient has been scheduled for a 3 week follow up inr on 01/31/24 please review and advise on recommendation patient only needs called if provider does not agree with recommendation documented in this encounterKn[facility]11-19-2024 Note* Addendum Note - Monica Aguila APRN.FINANCIAL ANALYSIS ADVISOR - 01/08/2024 4:18 PM ESTAddended by: MONICA AGUILA on: 01/08/2024 04:18 PM Modules accepted: Orders [facility]11-19-[facility] Miscellaneous Notes* Addendum Note - Monica Mccormick APRN.CNP - 01/08/2024 4:18 PM ESTAddended by: MONICA MCCORMICK on: 01/08/2024 04:18 PM Modules accepted: Orders documented in this encounterKnox [facility] Hospital11-19-2024 History of Present illness Narrative* Monica Aguila APRN.CNP - 01/08/2024 9:30 AM EST TAVR STRUCTURAL REVIEW FORM Orders placed by: Dr. Drew on 01/02/2024 Records Reviewed: 01/08/2024 Appt request sent: 01/08/2024 Records in [facility] have been reviewed. Severe . Request has been sent to the production control scheduler who will arrange an appointment schedule. Please note it can take up to 4 weeks [address] to take place. Once completed, a TAVR packet and schedule will be mailed to patient's home address. PLEASE NOTE: Appointment schedule being sent to the patient will be for CONSULTATION AND TESTING. All studies will be reviewed by the multidisciplinary valve team members and the TAVR procedure will be schedule at a later date. 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 Left ventricular systolic function is normal. EF = 62 5% (2D biplane) Grade I left ventricular diastolic dysfunction. - The right ventricle is normal in size. Right ventricular systolic function is normal. - There is a small pericardial effusion adjacent to the left ventricle measuring 0.7 cm, a small pericardial effusion adjacent to the right ventricle measuring 0.6 cm and a moderate pericardial effusion adjacent to the right atrium measuring 1.2 cm. The inferior vena cava appears normal measuring 1.8 cm. The vessel decreases greater than 50 percent with inspiration. No apparent signs of cardiac tamponade. - There is moderate mitral stenosis. The peak gradient is 22 mmHg and the mean gradient is 10 mmHg. - There is moderate (2+) tricuspid valve regurgitation. - There is severe aortic valve stenosis. AV area is 0.94 cm (0.58 cm /m ) by continuity, VTI. The peak gradient is 64 mmHg, the mean gradient is 37 mmHg and the dimensionless valve index is 0.31. - Exam was compared with the prior OUTSIDE echocardiographic exam performed on 03/22/2023. No significant change with the pericardial effusion or valvular disease. EKG 01/02/2024: NORMAL SINUS RHYTHM BIATRIAL ENLARGEMENT ABNORMAL ECG GFR: 94 Contrast Allergy: no Anticoagulation plan: coumadin, instructed her to hold for 3 days prior to the heart cath. DX: aortic valve disorder Referring physician: Dr. Drew DAY ONE: Dr. Meyer/ Dr. Cortez/ Dr. Saeed/Dr. Olea The following testing on same day as appointment with physician: EKG/CXR/Labs (CMP; CBC with diff, PT/INR, Pro-BNP, High Sensitivity Troponin, Lipoprotein(a)-LPA) Echocardiogram CTA aorta DAY TWO: Left Heart catheterization: any diagnostic physician. IF CREAT is 2.0 or greater, then it should be by an Junior Electrical Engineer ONLY (Dr. Cota, , Dr. Olea, Dr. Cortez, Dr. Meyer, Dr. Beavers, Dr. Jackson,Dr. Gillespie, Dr. Rosa, Dr. Dunn, Dr. Painter and Dr. West) DAY THREE: Nuclear Medicine- Amyloid SPECT Structural Valve Clinic appointment PFT s (spirometry, diffusing capacity) Patient is also to be seen by Dr. Francis/Dr. Macdonald/Dr. Costa/Dr. Silverio/ Dr. Delgado/Dr. Gonzalez/Dr. Arreaga/Dr. Luu/ Dr. Manzanares/ Dr. Gan/Dr. Anajli Aguila APRN.FINANCIAL ANALYSIS ADVISOR documented in this encounterKnox [facility] Hospital11-15-2024 Telephone encounter Note * Telephone Encounter - Geno Hart MD - 01/04/2024 2:26 PM EST ID Messaged by of the cardiology service-regarding patient's histoplasmosis. Apparently patient needs either TAVR or valve surgery and wanted to know if the histoplasmosis would be a problem. There is no such thing is medical legal clearance for procedures by infectious disease. However, clinically I have no contraindications to any procedures because her histoplasmosis has been on treatment the second time since March 20 of this year, she now has no more active symptoms. She has no FUO nor does she have colonic bleeding like she had the first time around. She has felt pretty good and I called her today this afternoon and she still feels good. In the meantime her histoplasma antigen is now negative not even low-level positive and it is clearly come down on treatment.This is the test to trend and it is doing fine. Although we could potentially stop treatment now this histoplasmosis treatment is her second occurrence and its because she has rheumatoid arthritis on immunosuppressive meds. We are going to go at least 1 year on treatment and consider stopping so weshould be well past the point of any procedures but if her procedures get delayed we could always extend the itraconazole beyond the procedure point. If she were to recur again I would consider some type of low-dose chronic itraconazole. There is noreason to wait and see how she does off therapy because it took quite some time to have a recurrence for the second episode. Geno Hart MD 01/04/2024 2:33 PM pgr [id number] [facility]11-15-2024 Miscellaneous Notes* Telephone Encounter - Geno Hart MD - 01/04/2024 2:26 PM EST ID Messaged by of the cardiology service-regarding patient's histoplasmosis. Apparently patient needs either TAVR or valve surgery and wanted to know if the histoplasmosis would be a problem. There is no such thing is medical legal clearance for procedures by infectious disease. However, clinically I have no contraindications to any procedures because her histoplasmosis has been on treatment the second time since March 20 of this year, she now has no more active symptoms. She has no FUO nor does she have colonic bleeding like she had the first time around. She has felt pretty good and I called her today this afternoon and she still feels good. In the meantime her histoplasma antigen is now negative not even low-level positive and it is clearly come down on treatment.This is the test to trend and it is doing fine. Although we could potentially stop treatment now this histoplasmosis treatment is her second occurrence and its because she has rheumatoid arthritis on immunosuppressive meds. We are going to go at least 1 year on treatment and consider stopping so weshould be well past the point of any procedures but if her procedures get delayed we could always extend the itraconazole beyond the procedure point. If she were to recur again I would consider some type of low-dose chronic itraconazole. There is noreason to wait and see how she does off therapy because it took quite some time to have a recurrence for the second episode. Geno Hart MD 01/04/2024 2:33 PM pgr [id number] documented in this encounterKnox [facility] Hospital11-13-2024 History of Present illness Narrative* Ines Drew MD - 01/02/2024 9:45 AM EST Images from the original note were not included. 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 -Known since 2019 with steadily rising gradients referred to [facility] for intervention -Followed by Dr. Hart from [place] for histoplasmosis, recent labs 12/19 show histo antigen negative -Followed by Dr. Messina from [facility] cardiology for and pericardial effusion last seen 08/27/23, then by Raji ROSALES 10/18/23 - awaiting evaluation for aortic valve intervention. Referred to [facility] for further management. Patient reports at baseline she is very limited due to joint pain in hands, wrists "everywhere" since being off RA treatment for histo. She uses cane in clinic today - seen in wheelchair. Reports at baseline lives at home alone with help from neighbors and friends - very active in mosque community.No family close by. No reported cardiac symptoms. Upon cardiovascular review of systems the patientdenies chest pain, SOB, palpitations, syncope, light-headedness, PND, orthopnea, intermittent claudication. Reports she is taking itraconazole for histoplasmosis which will continue through end of this year - followed by Dr. Hart. She has asymmetric LE edema (L>R) which has been ongoing for months has ultrasound in last few months without DVT. Known aortic stenosis for many years which has progressive steadily. PAST MEDICAL HISTORY Diagnosis Date Anemia Bone marrow involvement with histoplasmosis Bronchiectasis (HCC) COPD (chronic obstructive pulmonary disease) (HCC) Disseminated histoplasmosis Colitis, immunosuppression, 01/2018. Diverticulosis of colon (without mention of hemorrhage) Diverticulosis DVT, recurrent, lower extremity, acute ([facility]) 12/10/2014 Esophageal reflux Hiatal hernia 02/25/2018 Hypertension Lung nodule Personal history of unspecified urinary disorder 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 rheumatoid factor ([facility]) 03/07/2015 Dr. Hurley ([facility]) Unspecified hemorrhoids without mention of complication [...] SPINE FUSN,POST INTERBODY 2012 Dr. Armando at [facility]. Diskectomy and laminectomy PAST SURGICAL HISTORY OF 03/07/1999 removal facial lesion PAST SURGICAL HISTORY OF 08/17/2014 excision soft tissue mass left index finger TONSILLECTOMY PRIMARY/SECONDARY <AGE 14 TRANSCATH RETRIEVAL,PERCUT 12/28/2006 Social History Tobacco Use Smoking status: Former Current packs/day: 0.00 Average packs/day: 1 pack/day for 10.0 years (10.0 ttl pk-yrs) Types: Cigarettes Start date: 02/19/1979 Quit date: 02/19/1989 Years since quittin.9 Smokeless tobacco: Never Tobacco comments: Late heavy smoker. Vaping Use Vaping status: Never Used Substance Use Topics Alcohol use: Yes Comment: occasional Drug use: No FAMILY HISTORY Problem Relation Age of Onset Cancer Mother brain CURRENT MEDS: Current Outpatient Medications Medication Sig warfarin (COUMADIN) 1 mg tablet Take 6 mg and 5 mg all other days or as directed. itraconazole (SPORANOX) 10 mg/mL solution Take 20 mL by mouth two times a day. warfarin (COUMADIN) 5 mg tablet Take 1 tablet by mouth once daily. or as directed diclofenac (VOLTAREN) 1 % topical gel Apply 2 g to affected area four times daily. Both knees spironolactone (ALDACTONE) 25 mg tablet Take 1 tablet by mouth once daily. tiotropium bromide (SPIRIVA RESPIMAT) 2.5 mcg/actuation inhaler Inhale 2 Puffs as instructed once daily. Inhale two puffs once daily. furosemide (LASIX) 20 mg tablet Take 1-2 tablets by mouth two times a day as needed. Take daily forx5 days and then can use as needed daily after that for swelling. (Patient not taking: Reported on 10/18/2023) predniSONE (DELTASONE) 20 mg tablet 1 tablet three times a day for 3 days, then 2 times a day for 3days, the one daily for 3 days. (Patient not taking: Reported on 12/18/2023) potassium chloride ER (KLOR-CON M20) 20 mEq tablet Take 1 tablet by mouth two times a day. itraconazole (SPORANOX) 100 mg capsule Take 2 capsules by mouth two times a day. gabapentin (NEURONTIN) 300 mg capsule Take 1 capsule by mouth two times a day. fluticasone-salmeterol (WIXELA INHUB) 250-50 mcg/dose inhaler Inhale 1 Puff as instructed two timesa day. albuterol HFA (PROAIR HFA) 90 mcg/actuation inhaler Inhale 2 Puffs as instructed every 4 hours as needed. loperamide (IMODIUM) 2 mg cap(s) Take 1 capsule by mouth three times a day as needed for diarrhea for up to 7 days. Mucus Clearing Device (QUAKE VIBRATORY PEP) renetta Provide 1 device FOLIC ACID ORAL Take by mouth. fluticasone (FLONASE) 50 mcg/actuation nasal spray Use 1 [place] in each nostril once daily. pantoprazole DR (PROTONIX) 40 mg tablet Take 1 tablet by mouth once daily. vit A,C,S-Mpde-Ybvhxk (OCUVITE PRESERVISION) 2,148 mcg-113 mg-45 mg-17.4mg tab Take 2 tablets by mouth daily with breakfast. leucovorin (LEUCOVORIN) 15 mg tablet Take 15 mg by mouth once daily. HUMIRA PEN 40 mg/0.8 mL pnkt Inject 40 mg subcutaneously. Every other week. (Patient not taking: Reported on 10/18/2023) methotrexate 2.5 mg tablet Take 2.5 mg by mouth every Sunday. PT takes 2 tablets in am and 1 tablets in pm (Patient not taking: Reported on 10/18/2023) Cholecalciferol, Vitamin D3, 1,000 unit ORAL Cap [...] (BD POSIFLUSH) 10 mL INTRAVENOUS DIRECTED PRN ALLERGIES: ALLERGIES Allergen Reactions Penicillins Hives REVIEW OF SYSTEMS: CONSTITUTIONAL: No Changes. RESPIRATORY: Negative for cough, hemoptysis, wheezing, COPD, dyspnea or shortness of breath CARDIOVASCULAR: Negative for chest pain, leg swelling, hypertension, CHF or palpitations The reminder of the review of systems is negative. PHYSICAL EXAMINATION: BP 124/57 (BP Site: Left Arm, BP Position: Sitting, BP Cuff Size: Regular Adult) Pulse 81 Ht 160 cm (5' 3") Wt 56.2 kg (124 lb) SpO2 97% BMI 21.97 kg/m Well developed, well nourished, alert, active 78 year old female in no apparent distress. Eyes: Normal, PERRLA Skin: Xanthomas - none Neck: Normal, supple with full range of motion Lungs: Clear to auscultation and percussion Lower Extremities: Asymmetric L > R pitting edema 3+ left 2+ right Neurological:Oriented to person, place and time and No focal motor or sensory deficits Pulses: Carotid: Left: 2+, Right: 2+, Bruit: No Posterior Tibial:Right 2+, Posterior Tibial:Left 2+, Heart Sounds: S1: Normal S2: Normal S3: Absent S4: Absent Murmurs: Systolic Murmur Present: Yes 4/6 systolic crescendo-decrescendo murmur with radiation to carotids bilaterally Diastolic Murmur Present: No CLINICAL TESTING RESULTS: I have personally reviewed the followin09/28/23 TTE - The left ventricle is normal in size. Left ventricular systolic function is normal. EF = 62 5% (2D biplane) Grade I left ventricular diastolic dysfunction. - The right ventricle is normal in size. Right ventricular systolic function is normal. - There is a small pericardial effusion adjacent to the left ventricle measuring 0.7 cm, a small pericardial effusion adjacent to the right ventricle measuring 0.6 cm and a moderate pericardial effusion adjacent to the right atrium measuring 1.2 cm. The inferior vena cava appears normal measuring 1.8 cm. The vessel decreases greater than 50 percent with inspiration. No apparent signs of cardiac tamponade. - There is moderate mitral stenosis. The peak gradient is 22 mmHg and the mean gradient is 10 mmHg. - There is moderate (2+) tricuspid valve regurgitation. - There is severe aortic valve stenosis. AV area is 0.94 cm (0.58 cm /m ) by continuity, VTI. The peak gradient is 64 mmHg, the mean gradient is 37 mmHg and the dimensionless valve index is 0.31. LABS: Glucose (mg/dL) Date Value 10/11/2023 76 BUN (mg/dL) Date Value 10/11/2023 26 (H) Creatinine (mg/dL) Date Value 10/11/2023 0.59 Sodium (mmol/L) Date Value 10/11/2023 134 (L) Potassium (mmol/L) Date Value 10/11/2023 5.1 Chloride (mmol/L) Date Value 10/11/2023 99 CO2 (mmol/L) Date Value 10/11/2023 24 Protein, Total (g/dL) Date Value 12/19/2023 7.0 Albumin (g/dL) Date Value 12/19/2023 3.7 (L) Calcium, Total (mg/dL) Date Value 10/11/2023 9.4 Alkaline Phosphatase (U/L) Date Value 12/19/2023 95 Bilirubin, Total (mg/dL) Date Value 12/19/2023 0.6 AST (U/L) Date Value 12/19/2023 20 ALT (U/L) Date Value 12/19/2023 19 WBC (k/uL) Date Value 10/11/2023 9.85 RBC (m/uL) Date Value 10/11/2023 3.75 (L) Hemoglobin (g/dL) Date Value 10/11/2023 10.1 (L) Hematocrit (%) Date Value 10/11/2023 32.4 (L) MCV (fL) Date Value 10/11/2023 86.4 MCH (pg) Date Value 10/11/2023 26.9 MCHC (g/dL) Date Value 10/11/2023 31.2 RDW-CV (%) Date Value 10/11/2023 16.8 (H) Platelet Count (k/uL) Date Value 10/11/2023 349 MPV (fL) Date Value 10/11/2023 11.6 INR (POCT) (no units) Date Value 12/27/2023 1.5 (H) Cholesterol, Total Date Value Ref Range Status 07/07/2021 184 <200 mg/dL Final Comment: <200 mg/dL, Desirable 200-239 mg/dL, Borderline high >239 mg/dL, High HDL Cholesterol Date Value Ref Range Status 07/07/2021 64 >39 mg/dL Final Comment: 40-59 mg/dL, Acceptable >59 mg/dL, High: Negative risk factor for coronary heart disease <40 mg/dL, Low: Positive risk factor for coronary heart disease LDL Cholesterol Date Value Ref Range Status 07/07/2021 110 (H) <100 mg/dL Final Comment: <100 mg/dL, Optimal 100-129 mg/dL, Near optimal/above optimal 130-159 mg/dL, Borderline high 160-189 mg/dL, High >189 mg/dL, Very high Secondary prevention optimal LDL Cholesterol levels are recommended to be < 70 mg/dL Triglyceride Date Value Ref Range Status 07/07/2021 50 <150 mg/dL Final Comment: <150 mg/dL, Normal 150-199 mg/dL, Borderline high 200-499 mg/dL, High >499 mg/dL, Very high ASSESSMENT AND PLAN: In addition to the above history and physical exam, the results of prior labs and testing, were reviewed. The following mutual plans and goals have been established to address current medical problems and optimize control of cardiovascular risk factors to reduce the risk of future heart disease: 77 F with RA (off treatment given histo), HTN, disseminated histoplasmosis (ongoing treatment with undetectable histo antigen 12/19), VTE s/p IVC filter (seen 03/22/23) on warfarin, GIB in July from bleeding duodenal ulcer s/p cautery, severe Bicuspid AV presents for evaluation of . Active Medical Problems: -Severe bicuspid calcific aortic stenosis with moderate MS related to calcification - her symptoms do not accurately reflect her disease severity given severe activity limitation from RA - NTproBNP 1379 08/29 elevated which supports need for valve intervention now -Referral to TAVR clinic - given frailty and comorbidities likely high risk for any open heart surgery therefore TAVR is better option -Repeat TTE ordered 01/17 to follow-up pericardial effusion seen on prior echo - prior small-moderate suspect related to underlying RA or infection - would not expect this to need intervention prior to TAVR -Evaluation by ID (question being whether ongoing treatment for histoplasmosis should delay TAVR, any potential risk for infection of valve - histo antigen not detected 12/19) and rheumatology (for optimization prior to TAVR - wonder if neck xray indicated to r/o atlantoaxial subluxation) as part of TAVR evaluation -No prior ischemic evaluation I could find - will need this prior to TAVR UPDATE - after the visit I discussed with patient's ID physician who said there was no contraindication to TAVR from histoplasmosis perspective. Reassured that histoplasmosis antigen had cleared. Chacho Arzate MD FOLLOW UP: We recommend a follow-up with TAVR clinic. [facility] STAFF PHYSICIAN NOTE OF PERSONAL INVOLVEMENT IN CARE I have reviewed the documentation obtained and documented by the Fellow, Chacho Arzate MD and I have personally performed a face to face assessment of the patient and have personally participated inthe jim components of the visit which includes medical decision making.. I have discussed the case and management of the patient's care. STAFF PHYSICIAN: Ines Drew MD CONTACT INFORMATION: Ines Drew M.D., F.A.C.CRc [facility] Department of Cardiovascular Medicine Heart, Vascular and Thoracic [place] [facility] [address]k [id number] [place] [address] Office - [phone] extension [phone] Office E-mail: [email or web address] Appointments: [phone] -[phone] extension [phone] documented in this encounterKn[facility]11-07-[facility] History of Present illness Narrative* Jimbo Swanson APRN.CNS - 12/27/2023 2:01 PM EST Coumadin 6mg Thurs and 5mg all other days and recheck in 2 weeks * Melissa Means RN - 12/27/2023 12:19 PM EST patient had inr completed at [facility] patients inr is 1.5 (patients inr range is 1.7-2.2) patient is currently taking 5mg daily (patient was to change dose last time to 6mg Thurs and 5mg all other days but was having problems with pharmacy in getting her coumadin refilled, problem was finally resolved on Sunday) patients last dose change was on 11/29/23 due to a high level of 2.3 (dose at that time was 7.5mg Tues and 5mg all other days) patient has had no changes in medication and no missed doses and no change in diet recommend: patient change coumadin to what was directed 2 weeks ago to 6mg Thurs and 5mg all other days and recheck in 2 weeks patient has been scheduled for a 2 week follow up inr on 01/10/24 please review and advise on recommendation patient only needs called if provider does not agree with recommendation documented in this encounterKn[facility]10-31-2024 History of Present illness Narrative* Rosa Wallace RN - 12/20/2023 11:22 AM EDT [facility] Telephonic Outreach Provider Action/FYI Contacted for: Engagement Contact made with patient: Yes Patient identified by name and date of . Discussed care with patient Outcomes: Patient switched from [facility] to telephone outreach Are you experiencing any new or worsening symptoms you need to talk about today? 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 Routed to: No Action Needed PAN Education Provided this Outreach: No Rosa Wallace RN December 20, 2023 11:29 AM documented in this encounterKn[facility]10-31-2024 Telephone encounter Note * Telephone Encounter - Jimbo Swanson APRN.CNS - 12/20/2023 7:12 AM EDT ok [facility]10-[facility] Miscellaneous Notes* Telephone Encounter - Jimbo Swanson APRN.CNS - 12/20/2023 7:12 AM EDT ok * Telephone Encounter - Migdalia Montoya LPN - 12/19/2023 10:06 AM EDT Patient is not able to fill her 1 mg Coumadin. Directions on script are different from what patientwas instructed to take verbally. Patient has been taking 6 mg Thursday and 5 mg all other days. Rx that was sent on 12/12 has 6 mg Thursday and 4 mg all other days. Please update prescription and send to pharmacy. documented in this encounterKn[facility]10-30-2024 History of Present illness Narrative* Rosa Wallace RN - 12/19/2023 3:54 PM EDT [facility] Telephonic Outreach Provider Candelaria/SHAYNE Contacted for: Engagement Contact made with patient: No, left message. Rosa Wallace RN December 19, 2023 3:57 PM documented in this encounterKnox [facility] Hospital10-30-2024 Telephone encounter Note * Telephone Encounter - Migdalia Montoya LPN - 12/19/2023 10:06 AM EDT Patient is not able to fill her 1 mg Coumadin. Directions on script are different from what patientwas instructed to take verbally. Patient has been taking 6 mg Thursday and 5 mg all other days. Rx that was sent on 12/12 has 6 mg Thursday and 4 mg all other days. Please update prescription and send to pharmacy. [facility]10-29[facility] History of Present illness Narrative* Geno Hart MD - 12/18/2023 11:00 AM EDT Patient presents with: Disseminated histoplasmosis : Follow-up on itraconazole HPI: 78-year-old woman immunosuppressed due to rheumatoid arthritis on Biologics, COPD with bronchiectasis, previously treated by [facility] for disseminated histoplasmosis and did well. In February 2023 was transferred here from [facility] with massive hemoptysis found out to be COVID-positive and was treated with remdesivir and dexamethasone. Apparently was put on itraconazole March 19 for recurrent histoplasmosis which was appropriate from her pulmonary physician. She has been on that with occasional monitoring of histoplasma antigens and itraconazole levels. Currently no constitutional symptoms, no pulmonary symptoms, no GI symptoms. Considering all her underlying problems including rheumatoid flares due to cessation of biologic for the histo, she feels relatively normal. 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 Her biggest problems are recurrent achy and red joints fromher rheumatoid arthritis knees greater than all other and she is only on Tylenol. She does have small DJD besides rheumatoid arthritis. Chronic COPD and bronchiectasis have been stable. On itraconazole twice daily 100% without misses and no complaints of side effects. He is on warfarin for DVT Social History Tobacco Use Smoking status: Former Current packs/day: 0.00 Average packs/day: 1 pack/day for 10.0 years (10.0 ttl pk-yrs) Types: Cigarettes Start date: 02/19/1979 Quit date: 02/19/1989 Years since quittin.8 Smokeless tobacco: Never Tobacco comments: Late heavy smoker. Vaping Use Vaping status: Never Used Substance Use Topics Alcohol use: Yes Comment: occasional Drug use: No Current Outpatient Medications Medication Sig Dispense Refill warfarin (COUMADIN) 5 mg tablet Take 1 tablet by mouth once daily. or as directed 90 tablet 3 diclofenac (VOLTAREN) 1 % topical gel Apply 2 g to affected area four times daily. Both knees 50 g 1 spironolactone (ALDACTONE) 25 mg tablet Take 1 tablet by mouth once daily. (Patient not taking: Reported on 01/02/2024) 30 tablet 2 tiotropium bromide (SPIRIVA RESPIMAT) 2.5 mcg/actuation inhaler Inhale 2 Puffs as instructed once daily. Inhale two puffs once daily. 3 Each 3 potassium chloride ER (KLOR-CON M20) 20 mEq tablet Take 1 tablet by mouth two times a day. 180 tablet 3 gabapentin (NEURONTIN) 300 mg capsule Take 1 capsule by mouth two times a day. 180 capsule 3 fluticasone-salmeterol (WIXELA INHUB) 250-50 mcg/dose inhaler Inhale 1 Puff as instructed two timesa day. 3 Each 3 albuterol HFA (PROAIR HFA) 90 mcg/actuation inhaler Inhale 2 Puffs as instructed every 4 hours as needed. 1 Each 2 loperamide (IMODIUM) 2 mg cap(s) Take 1 capsule by mouth three times a day as needed for diarrhea for up to 7 days. 20 capsule 0 Mucus Clearing Device (QUAKE VIBRATORY PEP) renetta Provide 1 device 1 Each 0 FOLIC ACID ORAL Take by mouth. fluticasone (FLONASE) 50 mcg/actuation nasal spray Use 1 [place] in each nostril once daily. [address] (PROTONIX) 40 mg tablet Take 1 tablet by mouth once daily. 90 tablet 3 vit A,C,N-Ikop-Drmghj (OCUVITE PRESERVISION) 2,148 mcg-113 mg-45 mg-17.4mg tab Take 2 tablets by mouth daily with breakfast. leucovorin (LEUCOVORIN) 15 mg tablet Take 15 mg by mouth once daily. Cholecalciferol, Vitamin D3, 1,000 unit ORAL Cap Take 1 capsule by mouth once daily. 1 capsule 0 omega-3 fatty acids/vitamin e(FISH OIL 1,000 MG CAP) Take one(1) capsule daily. 0 THERAPEUTIC MULTIVITAMIN TAB Take one(1) tablet daily. 0 warfarin (COUMADIN) 1 mg tablet Take 6 mg and 5 mg all other days or as directed. 30 tablet 6 itraconazole (SPORANOX) 10 mg/mL solution Take 20 mL by mouth two times a day. (Patient not taking:Reported on 01/02/2024) 1200 mL 0 furosemide (LASIX) 20 mg tablet Take 1-2 tablets by mouth two times a day as needed. Take daily forx5 days and then can use as needed daily after that for swelling. (Patient not taking: Reported on 10/18/2023) 60 tablet 1 predniSONE (DELTASONE) 20 mg tablet 1 tablet three times a day for 3 days, then 2 times a day for 3days, the one daily for 3 days. (Patient not taking: Reported on 12/18/2023) 18 tablet 0 itraconazole (SPORANOX) 100 mg capsule Take 2 capsules by mouth two times a day. (Patient not taking: Reported on 01/02/2024) 120 capsule 0 HUMIRA PEN 40 mg/0.8 mL pnkt Inject 40 mg subcutaneously. Every other week. (Patient not taking: Reported on 10/18/2023) methotrexate 2.5 mg tablet Take 2.5 mg by mouth every Sunday. PT takes 2 tablets in am and 1 tablets in pm (Patient not taking: Reported on 10/18/2023) 12 tablet 0 Current Facility-Administered Medications Medication Dose Route Frequency Provider Last Rate Last Admin perflutren lipid microspheres 1.3 mL in NaCl (PF) 0.9% 10 mL injection (DEFINITY) INTRAVENOUS DIRECTED PRN William Messina DO sodium chloride 0.9 % (flush) 10 mL (BD POSIFLUSH) 10 mL INTRAVENOUS DIRECTED PRN Ruben Messina DO ALLERGIES Allergen Reactions Penicillins Hives PAST MEDICAL HISTORY Diagnosis Date Anemia Bone marrow involvement with histoplasmosis Bronchiectasis (HCC) COPD (chronic obstructive pulmonary disease) (HCC) Disseminated histoplasmosis Colitis, immunosuppression, 01/2018. Diverticulosis of colon (without mention of hemorrhage) Diverticulosis DVT, recurrent, lower extremity, acute ([facility]) 12/10/2014 Esophageal reflux Hiatal hernia 02/25/2018 Hypertension Lung nodule Personal history of unspecified urinary disorder 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 rheumatoid factor ([facility]) 03/07/2015 Dr. Hurley ([facility]) Unspecified hemorrhoids without mention of complication [...] SPINE FUSN,POST INTERBODY 2012 Dr. Armando at [facility]. Diskectomy and laminectomy PAST SURGICAL HISTORY OF 03/07/1999 removal facial lesion PAST SURGICAL HISTORY OF 08/17/2014 excision soft tissue mass left index finger TONSILLECTOMY PRIMARY/SECONDARY <AGE 12 TRANSCATH RETRIEVAL,PERCUT 12/28/2006 ACTIVE PROBLEM LIST Esophageal Reflux Meralgia Paresthetica Other Voice and Resonance Disorders Arthropathy, Unspecified, Site Unspecified Elevated Liver Enzymes Assisted Current Use of Anticoagulant Therapy Hnp (Herniated Nucleus Pulposus), Lumbar Atrophic Vaginitis Ganglion Cyst Essential Hypertension Rheumatoid Arthritis (Hcc) Pain in Right Hip Low Back Pain With Right-Sided Sciatica History of Recurrent Deep Vein Thrombosis (Dvt) Ddd (Degenerative Disc Disease), Lumbar Spondylolisthesis of Lumbar Region Iron Deficiency Anemia Due to Chronic Blood Loss Disseminated Histoplasmosis Aortic Valve Stenosis Lung Nodule Bronchiectasis Without Complication (Hcc) Copd Without Exacerbation (Hcc) Ulcer of Toe of Left Foot, Limited to Breakdown of Skin (Hcc) Pneumatosis Intestinalis Covid-19 Hemoptysis Gram-Negative Infection Anaerobic Bacterial Infection History of Immunosuppressive Therapy History of Penicillin Allergy Counseling, Unspecified Histoplasmosis Mitral Valve Stenosis, Non-Rheumatic ROS- Negative- General-fever, chills, myalgias Pulmonary-cough, hemoptysis, shortness of breath Cardiac-irregular heartbeat, pounding heartbeat, chest pain Gastrointestinal-nausea, vomiting, diarrhea Urinary-dysuria, hematuria, flank pain, suprapubic pain Skin-drug rash, unusual rashes Neurologic-confusion, motor deficit, new sensory deficit, new special sensory deficit Positive- Rheumatoid flares off of her biologic BP 146/75 Pulse 84 Temp (Src) 98.7 (Temporal) Resp 16 Ht 5' 3" (1.60m) Wt 125 lb 14.4 oz (57.1kg) SpO2 98% BMI 22.31 kg/(m^2). Physical exam- General-afebrile, VSS, appropriately conversant HEENT-unremarkable externally Mouth-clear Neck-supple Lymph nodes-none palpable in the neck, periclavicular, Heart-regular without murmur Lungs-clear Abdomen-soft, nontender, no HSM Joints-no acute change although some of her MCP areas are slightly reddish Neurologically- no gross motor deficits seen in extremities or motor cranial nerves Skin-no drug rash DATA- August 30, 2023 CAT scan of the chest has resolution of pulmonary micronodules. Trace left pleural effusion slightly increased and small pericardial effusion slightly larger. Stable right middle lobe bronchiectasis with stable airspace disease consistent with fibrosis. Stable focal scarring or atelectasis in the inferior lingula and stable left lower lobe nodule. Middle mediastinal calcified granuloma. August itraconazole level has been good. Histoplasma antigen slightly positive but decreasing it was 0.4 down from 2.8. August histoplasma M antibody positive but was positive for H and M before Previous creatinine fine and transaminases fine ASSESSMENT/PLAN: 1. Disseminated histoplasmosis Clinically and lab melendez doing well. Monitoring histoplasma antigen. Even if negative treating a year is within the realm of histoplasma treatments especially in somebody who has been immunosuppressed. She is in agreement and the end date would be near the end of February - HISTOPLASMA AG URINE; Future - ITRACONAZOLE BLOOD; Future - HEPATIC FUNCTION PNL; Future - itraconazole (SPORANOX) 10 mg/mL solution; Take 20 mL by mouth two times a day. (Patient not taking: Reported on 01/02/2024) Dispense: 1200 mL; Refill: 0 2. Bronchiectasis without complication (HCC) Allows for secondary infections 3. COPD without exacerbation (HCC) Last for secondary infections and complicates care 4. Rheumatoid arthritis with positive rheumatoid factor, involving unspecified site (HCC) Underlying disease requiring immunosuppressive therapy which can allow for this 5. History of immunosuppressive therapy For RA and does allow for histoplasmosis 6. History of penicillin allergy Could become a problem for treating bacterial infections 7. Encounter for long-term (current) use of antibiotics Tolerates clinically and lab melendez and needs monitored - HISTOPLASMA AG URINE; Future - ITRACONAZOLE BLOOD; Future - HEPATIC FUNCTION PNL; Future 8. Counseling, unspecified Discussed all the above with her including the fact that we are going another year and see how she does and she is in agreement 9. Disseminated histoplasmosis Previously was in the: And right now is at least in the chest possibly elsewhere - HISTOPLASMA AG URINE; Future - ITRACONAZOLE BLOOD; Future - HEPATIC FUNCTION PNL; Future - itraconazole (SPORANOX) 10 mg/mL solution; Take 20 mL by mouth two times a day. (Patient not taking: Reported on 01/02/2024) Dispense: 1200 mL; Refill: 0 Various notes, radiology reports, lab reports reviewed. Great deal of time spent [id number] with the patient mostly in discussion Return in about 4 months (around 04/18/2024). documented in this encounterKnox [facility] Hospital10-24-2024 History of Present illness Narrative* Jimbo Swanson APRN.INDUSTRIAL CHEMISTRY TEACHER - 12/13/2023 4:22 PM EDT Coumadin 6 mg and 5 mg all other days and check INR in 2 weeks. * Melissa Means RN - 12/13/2023 1:17 PM EDT patient had inr completed at [facility] patients inr is 1.4 (patients inr range is 1.7-2.2) patient is currently taking 5mg daily patients last dose change was on 11/29/23 due to a high level of 2.3 (dose at that time was 7.5mg and 5mg all other days) patient has had no changes in medication and no missed doses and no change in diet recommend: patient change coumadin to 6mg and 5mg all other days and recheck in 2 weeks patient has been scheduled for a 2 week follow up inr on 12/27/23 patient will need an rx for 1mg coumadin sent to [facility] (rx has been pended for approval) please review and advise on recommendation patient only needs called if provider does not agree with recommendation documented in this encounterKnox [facility] Hospital10-22-2024 Telephone encounter Note * Telephone Encounter - Lynne Mann LPN - 12/11/2023 3:41 PM EDT The patient has been identified by name and date of : Yes Caregiver verified no other encounters exist for this prescription request: Yes Caregiver confirmed with patient/requestor that no other refills are due, in the near future, with this provider at this time: Yes The last office visit in the department: 10/11/2023 Does the patient have a future office visit with this provider/department: Yes 02/29/2024 Requested Prescriptions Pending Prescriptions Disp Refills itraconazole (SPORANOX) 10 mg/mL solution 1200 mL 0 Sig: Take 20 mL by mouth two times a day. Lynne Mann LPN December 11, 2023 3:42 PM [facility]10-[facility] Miscellaneous Notes* Telephone Encounter - Lynne Mann LPN - 12/11/2023 3:41 PM EDT The patient has been identified by name and date of : Yes Caregiver verified no other encounters exist for this prescription request: Yes Caregiver confirmed with patient/requestor that no other refills are due, in the near future, with this provider at this time: Yes The last office visit in the department: 10/11/2023 Does the patient have a future office visit with this provider/department: Yes 02/29/2024 Requested Prescriptions Pending Prescriptions Disp Refills itraconazole (SPORANOX) 10 mg/mL solution 1200 mL 0 Sig: Take 20 mL by mouth two times a day. Lynne Mann LPN December 11, 2023 3:42 PM documented in this encounterKnox [facility] Hospital10-10-2024 History of Present illness Narrative* Jimbo Swanson APRN.CNS - 11/29/2023 3:00 PM EDT Coumadin 5 mg daily and check INR in 2 weeks * Melissa Means RN - 11/29/2023 12:35 PM EDT patient had inr completed at [facility] patients inr is 2.3 (patients inr range is 1.7-2.2) patient is currently taking 7.5mg Tues, and 5mg all other days patients last dose change was on 11/08/23 due to a high level of 2.8 (dose at that time was 7.5mg Tues,Thurs and 5mg all other days) patient has had no changes in medication and no missed doses and no change in diet recommend: patient change coumadin to 5mg daily and recheck in 2 weeks (patient is unable to do a 1week recheck) patient has been scheduled for a 2 week follow up inr on 12/13/23 please review and advise on recommendation patient only needs called if provider does not agree with recommendation [facility] Tele[facility] encounter Note * Telephone Encounter - Jannet Aldana RN - 11/26/2023 2:38 PM EDT Patient cannot come in this week, she has been rescheduled to 12-17. Jannet Aldana RN [facility] Work Phone: [phone]) 214-319210-07-2024 Miscellaneous Notes* Telephone Encounter - Jannet Aldana RN - 11/26/2023 2:38 PM EDT Patient cannot come in this week, she has been rescheduled to 12-17. Jannet Aldana RN * Telephone Encounter - Jannet Aldana RN - 11/26/2023 1:07 PM EDT Voicemail left for patient to return call. Jannet Aldana RN * Telephone Encounter - Geno Hart MD - 11/26/2023 12:21 PM EDT I am not sure that these labs have anything to do with her histoplasma. May be related to other conditions. If the patient wants I could try to see her whenever there is an opening this week or we could go to My office week around December 16 through December 20. * Telephone Encounter - Jannet Aldana RN - 11/26/2023 10:38 AM EDT Labs received from [facility] that will be scanned. They recommended a follow up with ID due toCRP 7.8 mg/dL and ESR 93 mm/hr. Patient is scheduled on 01-08-24. Should her appointment be scheduled sooner? Thank you, Jannet Aldana RN [facility] Telephone encounter Note * Telephone Encounter - Jannet Aldana RN - 11/26/2023 1:07 PM EDT Voicemail left for patient to return call. Jannet Aldana RN [facility]10-07-2024 Telephone encounter Note* Telephone Encounter - Geno Hart MD - 11/26/2023 12:21 PM EDT I am not sure that these labs have anything to do with her histoplasma. May be related to other conditions. If the patient wants I could try to see her whenever there is an opening this week or we could go to My office week around December 16December 20. [facility] Work Phone: [phone] Telephone encounter Note* Telephone Encounter - Jannet Aldana RN - 11/26/2023 10:38 AM EDT Labs received from [facility] that will be scanned. They recommended a follow up with ID due toCRP 7.8 mg/dL and ESR 93 mm/hr. Patient is scheduled on 01-08-24. Should her appointment be scheduled sooner? Thank you, Jannet Aldana, RN [facility]09-26[facility]24 Telephone encounter Note* Telephone Encounter - Jimbo Swanson APRN.CNS - 11/15/2023 4:53 PM EDT ok [facility]09-26-2024 Miscellaneous Notes* Telephone Encounter - Jimbo Swanson APRN.CNS - 11/15/2023 4:53 PM EDT ok * Telephone Encounter - Melissa Means RN - 11/15/2023 12:26 PM EDT patients orders for coumadin clinic inr's has at this time. new order has been pended for approval if possible so that patient can continue to get inr's completed thru the coumadin clinic. coumadin clinic nurse only needs called if order can not be approved. [facility] Telephone encounter Note * Telephone Encounter - Melissa Means RN - 11/15/2023 12:26 PM EDT patients orders for coumadin clinic inr's has at this time. new order has been pended for approval if possible so that patient can continue to get inr's completed thru the coumadin clinic. coumadin clinic nurse only needs called if order can not be approved. [facility] History of Present illness Narrative* Melissa Means RN - 11/15/2023 12:24 PM EDT patient had inr completed at [facility] patients inr is 2.1 (patients inr range is 1.8-2.2) patient is currently taking 7.5mg Tues and 5mg all other days patients last dose change was on 11/08/23 due to a high level of 2.8 (dose at that time was 7.5mg Tues Thurs and 5mg all other days) patient has had no changes in medication except for coumadin and no uninstructed missed doses and no change in diet Advised patient to continue on the same dose(s) and that they would only be contacted regarding dosage and follow up instructions after review with provider, if a change is needed. Written instructions given and patient verbalized understanding. Presently scheduled in 2 weeks (11/29/23) for follow u p INR since this is the first normal reading since dose change [facility] History of Present illness Narrative* Melissa Means RN - 11/08/2023 4:20 PM EDT pcp agrees with information * Melissa Means RN - 11/08/2023 2:00 PM EDT patient had inr completed at [facility] patients inr is 2.8 (patients inr range is 1.7-2.2) patient is currently taking 7.5mg Tues,Thurs and 5mg all other days per ORAL Swanson patients last dose change was on 10/25/23 due to a low level of 1.3 (dose at that time was 5mg daily) patient has had no changes in medication except for coumadin and no missed doses and no change in diet recommend: patient hold coumadin today and then tomorrow start on 7.5mg Tues and 5mg all other daysand recheck in 1 week patient has been scheduled for a 1 week follow up inr on 11/15/23 please review and advise on recommendation patient only needs called if provider does not agree with recommendation documented [facility]Kn[facility]09-[facility]24 Telephone encounter Note * Telephone Encounter - Claudine Durán MD - 11/05/2023 4:53 PM EDT The following approved medication requests have been transmitted electronically. Requested Prescriptions Pending Prescriptions Disp Refills itraconazole (SPORANOX) 10 mg/mL solution 1200 mL 0 Sig: Take 20 mL by mouth two times a day. Claudine Durán MD [facility]09-16-2024 Miscellaneous Notes* Telephone Encounter - Claudine Durán MD - 11/05/2023 4:53 PM EDT The following approved medication requests have been transmitted electronically. Requested Prescriptions Pending Prescriptions Disp Refills itraconazole (SPORANOX) 10 mg/mL solution 1200 mL 0 Sig: Take 20 mL by mouth two times a day. Claudine Durán MD * Telephone Encounter - Yessica Pelayo LPN - 11/05/2023 11:28 AM EDT Patient MyChart message requesting the following refill Refill(s) Requested: Requested Prescriptions Pending Prescriptions Disp Refills itraconazole (SPORANOX) 10 mg/mL solution 1200 mL 0 Sig: Take 20 mL by mouth two times a day. ALLERGIES Allergen Reactions Penicillins Hives (home) [phone] (cell) Last Office Visit Date: 10/11/2023 Last [facility] Visit: Visit date not found Future Appointment: 02/29/2024 The patients preferred pharmacy has been captured for this encounter? yes Request is for script(s) to be escript to pharmacy. Yessica Pelayo LPN documented in this encounterKn[facility]09-16-[facility]24 Telephone encounter Note * Telephone Encounter - Yessica Pelayo LPN - 11/05/2023 11:28 AM EDT Patient MyChart message requesting the following refill Refill(s) Requested: Requested Prescriptions Pending Prescriptions Disp Refills itraconazole (SPORANOX) 10 mg/mL solution 1200 mL 0 Sig: Take 20 mL by mouth two times a day. ALLERGIES Allergen Reactions Penicillins Hives (home) [phone] (cell) Last Office Visit Date: 10/11/2023 Last [facility] Visit: Visit date not found Future Appointment: 02/29/2024 The patients preferred pharmacy has been captured for this encounter? yes Request is for script(s) to be escript to pharmacy. Yessica Pelayo LPN [facility]09-10-2024 Telephone encounter Note* Telephone Encounter - Ashley Rahman MA - 10/30/2023 2:51 PM EDT Forms were successfully faxed to [phone] to [facility]. Form placed in PSS basket for scanning. [facility] Miscellaneous Notes* Telephone Encounter - Ashley Rahman MA - 10/30/2023 2:51 PM EDT Forms were successfully faxed to [phone] to [facility]. Form placed in PSS basket for scanning. documented in this encounterKn[facility]09-[facility] History of Present illness Narrative* Yesenia Weinstein LPN - 10/26/2023 3:59 PM EDT Patient was given coumadin instructions and verbalized understanding. * Jimbo Swanson APRN.INDUSTRIAL CHEMISTRY TEACHER - 10/25/2023 3:30 PM EDT Recommend Coumadin 7.5 Sunday and and 5 mg all other days. Check INR in 2 weeks * Melissa Means, PAULA - 10/25/2023 12:34 PM EDT patient had inr completed at [facility] patients inr is 1.3 (patients inr range is 1.7-2.2) patient is currently taking 5mg daily patients last dose change was on 10/19/23 due to a low level of 1.1 (dose at that time was 2.5mg Satand 5mg all other days) patient has had no changes in medication except for coumadin and no missed doses and no change in diet recommend: patient change coumadin 7.5mg and 5mg all other days and recheck in 2 weeks patient has been scheduled for a 2 week follow up inr on 11/08/23 please review and advise on recommendation patient only needs called if provider does not agree with recommendation documented in this encounterKn[facility]09-[facility]24 Telephone encounter Note * Telephone Encounter - Claudine Durán MD - 10/24/2023 5:14 PM EDT The following approved medication requests have been transmitted electronically. Requested Prescriptions Signed Prescriptions Disp Refills warfarin (COUMADIN) 5 mg tablet 90 tablet 3 Sig: Take 1 tablet by mouth once daily. or as directed Authorizing Provider: CLAUDINE DURÁN MD [facility]09-04-2024 Miscellaneous Notes* Telephone Encounter - Claudine Durán MD - 10/24/2023 5:14 PM EDT The following approved medication requests have been transmitted electronically. Requested Prescriptions Signed Prescriptions Disp Refills warfarin (COUMADIN) 5 mg tablet 90 tablet 3 Sig: Take 1 tablet by mouth once daily. or as directed Authorizing Provider: CLAUDINE DURÁN MD * Telephone Encounter - Maritza Preston LPN - 10/23/2023 4:00 PM EDT Patient has been identified by name and date of : Yes Patient phones for refill(s): Requested Prescriptions Pending Prescriptions Disp Refills warfarin (COUMADIN) 5 mg tablet Sig: Take 1 tablet by mouth once daily. or as directed Date of last office visit in primary care: 10/11/2023 Date of next office visit in primary care: 02/29/2024 Please advise. Thank you. Maritza Preston LPN. documented in this encounterKn[facility]09-[facility]-2024 Telephone encounter Note * Telephone Encounter - Maritza Preston LPN - 10/23/2023 4:00 PM EDT Patient has been identified by name and date of : Yes Patient phones for refill(s): Requested Prescriptions Pending Prescriptions Disp Refills warfarin (COUMADIN) 5 mg tablet Sig: Take 1 tablet by mouth once daily. or as directed Date of last office visit in primary care: 10/11/2023 Date of next office visit in primary care: 02/29/2024 Please advise. Thank you. Maritza Preston LPN. [facility]08-30-[facility] History of Present illness Narrative* Melissa Means RN - 10/19/2023 3:22 PM EDT pcp agrees with information * Melissa Means RN - 10/19/2023 11:54 AM EDT patient had inr completed at [facility] patients inr is 1.1 (patients inr range is 1.7-2.2) patient is currently taking 2.5mg Sat and 5mg all other days patients last dose change was on 09/20/23 due to a high level of 2.4 (dose at that time was 5mg daily) patient has had no changes in medication and no missed doses and no change in diet recommend: patient change coumadin to 5mg daily and recheck in 1 week patient has been scheduled for a 1 week follow up inr on 10/25/23 please review and advise on recommendation patient only needs called if provider does not agree with recommendation documented in this encounterKn[facility]08-29-2024 Instructions* Patient Instructions* Bibi Alegria APRN.CNP - 10/18/2023 10:41 AM EDT It was great to see you today, as we discussed: 1. Start monitoring your weight daily. If you gain 3 lbs in 1-3 days or have worsening lower extremity swelling you can take a dose of Lasix. If persist for 2-3 days please let us know 2. If you develop chest pain, lightheadedness, or dizziness let us know 3. I reached out to Dr. Hart regarding fixing your valve with your histoplasmosis. I will updated you when I hear back from him 4. In the mean time you can keep your appointment with the valve team at [facility]. 5. Follow up with Dr. Messina in 3-4 months with echo prior documented in this encounterKnox [facility]08-29-2024 History of Present illness Narrative* Biib Alegria APRN.CNP - 10/18/2023 10:00 AM EDT Images from the original note were not included. [facility] [place] [facility] Department of Cardiovascular Medicine SECTION OF CLINICAL CARDIOLOGY OUTPATIENT VISIT DATE October 18, 2023 OUTPATIENT VISIT TYPE ESTABLISHED PRIMARY CARE PHYSICIAN: Claudine Durán [address] [place] [address] CHIEF COMPLAINT: 1 month follow up HISTORY OF PRESENT ILLNESS: Ms. Bustamante is a 78 year old female with history of valvular heart disease, bicuspid aortic valve, HFpEF, pericardial effusion, previous DVT, HTN, COPD, hiatal hernia, and rheumatoid arthritis who presents today for a cardiovascular medicine follow-up visit. She was last seen in the office by Dr. Messina on 08/27/2023 at which time she noted exertional symptoms. Given her known valvular heart disease and recent pericardial effusion repeat echocardiogram was recommended as well as repeat blood work. Plan was for follow-up in 1 month. Limited echocardiogram completed 09/28/2023 showed EF 62%, grade I LVDD, moderate mitral stenosis, mild mitral regurgitation, moderate tricuspid regurgitation, severe aortic stenosis, and small pericardial effusion adjacent to LV and RV with moderate pericardial effusion adjacent to the RA. Since her last office visit she was struggling with a significant amount of lower extremity edema which she reports extended all the way up to her hips. She interestingly reports no shortness of breath with this. She was placed on increasing Lasix doses and her lower extremity has now nearly resolved. She is now taking spironolactone daily and Lasix as needed. She does not take her spironolactoneon days she will be out of the house as she does not want to have to be using the restroom. She reports her weight got up to 136 lbs and is now back down to 116 lbs. She was seen by her PCP earlier this week who referred her to valve clinic at [facility]. She denies any chest pain, palpitations, sh ortness of breath, lightheadedness, dizziness, presyncope, syncope, orthopnea, or PND. Subjective PAST MEDICAL HISTORY No date: Anemia Comment: Bone marrow involvement with histoplasmosis No date: Bronchiectasis (HCC) No date: COPD (chronic obstructive pulmonary disease) (HCC) No date: Disseminated histoplasmosis Comment: Colitis, immunosuppression, 01/2018. No date: Diverticulosis of colon (without mention of hemorrhage) Comment: Diverticulosis 12/10/2014: DVT, recurrent, lower extremity, acute (HCC) No date: Esophageal reflux 02/25/2018: Hiatal hernia No date: Hypertension No date: Lung nodule No date: Personal history of unspecified urinary disorder 03/07/2015: 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 rheumatoid factor (HCC) Comment: Dr. Hurley ([facility]) No date: Unspecified hemorrhoids without mention of complication Comment: Hemorrhoids PAST SURGICAL HISTORY 10/2003: COLONOSCOPY FLX DX W/COLLJ SPEC WHEN PFRMD Comment: Colonoscopy 05/18/2014: COLONOSCOPY FLX DX W/COLLJ SPEC WHEN PFRMD Comment: Colonoscopy 02/25/2018: COLONOSCOPY FLX DX W/COLLJ SPEC WHEN PFRMD Comment: Colonoscopy 03/24/2019: COLONOSCOPY FLX DX W/COLLJ SPEC WHEN PFRMD Comment: Colonoscopy 02/25/2018: ESOPHAGOGASTRODUODENOSCOPY TRANSORAL DIAGNOSTIC Comment: EGD 12/28/2006: FILTER PLACEMENT (VENA CAVA) 2022: FOOT SURGERY HX; Right Comment: Bunion surgery 12/28/2006: INTRO. OF CATH SUP/INF VENA CAVA 2012: LUMBAR SPINE FUSN,POST INTERBODY Comment: Dr. Armando at [facility]. Diskectomy and laminectomy 03/07/1999: PAST SURGICAL HISTORY OF Comment: removal facial lesion 08/17/2014: PAST SURGICAL HISTORY OF Comment: excision soft tissue mass left index finger No date: TONSILLECTOMY PRIMARY/SECONDARY <AGE 14 12/28/2006: TRANSCATH RETRIEVAL,PERCUT Social History Tobacco Use Smoking status: Former Current packs/day: 0.00 Average packs/day: 1 pack/day for 10.0 years (10.0 ttl pk-yrs) Types: Cigarettes Start date: 02/19/1979 Quit date: 02/19/1989 Years since quittin.6 Smokeless tobacco: Never Tobacco comments: Late heavy smoker. Vaping Use Vaping status: Never Used Substance Use Topics Alcohol use: Yes Comment: occasional Drug use: No FAMILY HISTORY Problem Relation Age of Onset Cancer Mother brain ALLERGIES: ALLERGIES Allergen Reactions Penicillins Hives MEDICATIONS: diclofenac (VOLTAREN) 1 % topical gel^Apply 2 g to affected area four times daily. Both knees^Disp:50 g^Rfl: 1 HYDROcodone-acetaminophen (NORCO) 5-325 mg per tablet^Take 1 tablet by mouth at bedtime as needed for pain for up to 7 days.^Disp: 7 tablet^Rfl: 0 itraconazole (SPORANOX) 10 mg/mL solution^Take 20 mL by mouth two times a day.^Disp: 1200 mL^Rfl: 0 spironolactone (ALDACTONE) 25 mg tablet^Take 1 tablet by mouth once daily.^Disp: 30 tablet^Rfl: 2 tiotropium bromide (SPIRIVA RESPIMAT) 2.5 mcg/actuation inhaler^Inhale 2 Puffs as instructed once daily. Inhale two puffs once daily.^Disp: 3 Each^Rfl: 3 predniSONE (DELTASONE) 20 mg tablet^1 tablet three times a day for 3 days, then 2 times a day for 3days, the one daily for 3 days.^Disp: 18 tablet^Rfl: 0 potassium chloride ER (KLOR-CON M20) 20 mEq tablet^Take 1 tablet by mouth two times a day.^Disp: 180 tablet^Rfl: 3 warfarin (COUMADIN) 5 mg tablet^Take 1 tablet by mouth once daily. or as directed^Disp: ^Rfl: gabapentin (NEURONTIN) 300 mg capsule^Take 1 capsule by mouth two times a day.^Disp: 180 capsule^Rfl: 3 fluticasone-salmeterol (WIXELA INHUB) 250-50 mcg/dose inhaler^Inhale 1 Puff as instructed two timesa day.^Disp: 3 Each^Rfl: 3 albuterol HFA (PROAIR HFA) 90 mcg/actuation inhaler^Inhale 2 Puffs as instructed every 4 hours as needed.^Disp: 1 Each^Rfl: 2 Mucus Clearing Device (QUAKE VIBRATORY PEP) renetta^Provide 1 device^Disp: 1 Each^Rfl: 0 warfarin (COUMADIN) 5 mg tablet^take 1 AND 1/2 tablets by mouth once daily ON SUNDAY, SUNDAY, SUNDAY, SUNDAY AND SUNDAY and 1 tablet by mouth once daily ON SUNDAY AND SUNDAY^Disp: 30 tablet^Rfl: 0 FOLIC ACID ORAL^Take by mouth.^Disp: ^Rfl: fluticasone (FLONASE) 50 mcg/actuation nasal spray^Use 1 [place] in each nostril once daily.^Disp: 3 Each^Rfl: 3 vit A,C,J-Njcg-Uzrnzv (OCUVITE PRESERVISION) 2,148 mcg-113 mg-45 mg-17.4mg tab^Take 2 tablets by mouth daily with breakfast.^Disp: ^Rfl: leucovorin (LEUCOVORIN) 15 mg tablet^Take 15 mg by mouth once daily.^Disp: ^Rfl: Cholecalciferol, Vitamin D3, 1,000 unit ORAL Cap^Take 1 capsule by mouth once daily.^Disp: 1 capsule^Rfl: 0 omega-3 fatty acids/vitamin e(FISH OIL 1,000 MG CAP)^Take one(1) capsule daily.^Disp: ^Rfl: 0 THERAPEUTIC MULTIVITAMIN TAB^Take one(1) tablet daily.^Disp: ^Rfl: 0 furosemide (LASIX) 20 mg tablet^Take 1-2 tablets by mouth two times a day as needed. Take daily forx5 days and then can use as needed daily after that for swelling.^Disp: 60 tablet^Rfl: 1 (Patient not taking: Reported on 10/18/2023) loperamide (IMODIUM) 2 mg cap(s)^Take 1 capsule by mouth three times a day as needed for diarrhea for up to 7 days.^Disp: 20 capsule^Rfl: [address] (PROTONIX) 40 mg tablet^Take 1 tablet by mouth once daily.^Disp: 90 tablet^Rfl: 3 (Patient not taking: Reported on 10/18/2023) HUMIRA PEN 40 mg/0.8 mL pnkt^Inject 40 mg subcutaneously. Every other week.^Disp: ^Rfl: (Patient not taking: Reported on 10/18/2023) methotrexate 2.5 mg tablet^Take 2.5 mg by mouth every Sunday. PT takes 2 tablets in am and 1 tablets in pm^Disp: 12 tablet^Rfl: 0 (Patient not taking: Reported on 10/18/2023) REVIEW OF SYSTEMS: CARD: See HPI GENERAL: Negative for: Weight loss or gain, Fever and/or Chills HEENT: Negative for: Headache, Impaired Vision, Hearing Impairment, Ringing in Ears, Nosebleeds, Bleeding Gums +Glasses NECK: Negative for: Swelling, Pain, Stiffness RESPIRATORY: Negative for: Cough, Blood in Sputum, Shortness of breath, Wheezing, Apnea GASTROINTESTINAL: Negative for: Nausea, Vomiting, Diarrhea, Blood in stool, or Dark black stools MUSCULOSKELETAL: +Arthralgias NEUROLOGIC: Negative for: focal numbness/weakness, headaches, visual changes, ataxia, speech/language loss SKIN: Negative for: Rashes, Itching HEMATOLOGICAL/LYMPHATIC: Negative for: Easy bruising , Easy bleeding ENDOCRINE: Negative for: Heat or cold intolerance, Excessive sweating, Frequent urination, Frequentthirst Objective PHYSICAL EXAMINATION: BP 120/60 Pulse 82 Ht 160 cm (5' 3") Wt 52.8 kg (116 lb 6.5 oz) SpO2 99% BMI 20.62 kg/m General: Well appearing, in no acute distress. Ambulates with cane. Skin: No clubbing, no cyanosis. Eyes: Extra ocular movements intact Oropharynx: Teeth in good repair. Neck: No jugular venous distention, no carotid bruits, carotids have a normal upstroke. Lungs: Clear to auscultation bilaterally, no wheezing or rhonchi. Heart: Regular rhythm, S1, S2 normal, no S3, no S4, no heaves, no rub and 4/6 TRES. 1+ LLE edema to mid soto, trace ankle edema RLE . Grade 2/4 distal pulses bilaterally. Abdomen: Soft, nontender, bowel sounds normal, no bruits. Neuro: Oriented to person, place and time, alert, cooperative, gait coordinated. CARDIOVASCULAR MEDICINE TESTING: Last ECHO Result Conclusion ECHO LIMITED Collected: 09/28/2023 10:32 AM (Final result) Impression: CONCLUSIONS: - Exam indication: Limited for Pericardial Effusion - The left ventricle is normal in size. Left ventricular systolic function is normal. EF = 62 5% (2D biplane) Grade I left ventricular diastolic dysfunction. - The right ventricle is normal in size. Right ventricular systolic function is normal. - There is a small pericardial effusion adjacent to the left ventricle measuring 0.7 cm, a small pericardial effusion adjacent to the right ventricle measuring 0.6 cm and a moderate pericardial effusion adjacent to the right atrium measuring 1.2 cm. The inferior vena cava appears normal measuring 1.8 cm. The vessel decreases greater than 50 percent with inspiration. No apparent signs of cardiac tamponade. - There is moderate mitral stenosis. The peak gradient is 22 mmHg and the mean gradient is 10 mmHg. - There is moderate (2+) tricuspid valve regurgitation. - There is severe aortic valve stenosis. AV area is 0.94 cm (0.58 cm /m ) by continuity, VTI. The peak gradient is 64 mmHg, the mean gradient is 37 mmHg and the dimensionless valve index is 0.31. - Exam was compared with the prior OUTSIDE echocardiographic exam performed on 03/22/2023. No significant change with the pericardial effusion or valvular disease. * * * Final * * * Last EKG Result Conclusion ECG COMPLETE Collected: 03/21/2023 9:24 AM (Final result) Impression: SINUS TACHYCARDIA POSSIBLE LEFT ATRIAL ENLARGEMENT LOW VOLTAGE QRS CANNOT RULE OUT ANTERIOR INFARCT , AGE UNDETERMINED ABNORMAL ECG NO PREVIOUS ECGS AVAILABLE Confirmed by MD KEESHA, MIRIAN ([id number]) on 03/29/2023 8:55:[address] Result Conclusion CT CHEST WO IVCON Exam End: 08/30/2023 2:07 PM (Final result) Impression: IMPRESSION: Resolution of pulmonary micronodules. Small pericardial effusion slightly larger than on prior study. Trace LEFT pleural effusion slightly increased in size. Stable RIGHT middle lobe bronchiectasis with stable adjacent airspace disease, most likely fibrosis. There is also stable focal scarring or atelectasis in the inferior lingula and stable LEFT lower lobe nodule. Stable calcified granuloma middle mediastinum. Small hiatal hernia Jack Machine Operator: PSCB Transcribe Date/Time: Sep 05 2023 12:56P Dictated by : JASMYN MÉNDEZ MD This examination was interpreted and the report reviewed and electronically signed by: JASMYN MÉNDEZ MD on Sep 05 2023 1:06PM EST I have personally reviewed the Echocardiogram. PLAN AND RECOMMENDATIONS: Valvular heart disease - Echo 09/28/23: - Mild (1+) MR - Moderate MS - Moderate (2+) TR - Severe , Pk/Mn gradient 64/37 mmHg an RUBY 0.94 cm (Prior 03/22/23 Pk/Mn 73/46 mmHg) - Known bicuspid AV - No prior history of rheumatic fever that she is aware of - Cautious diuresis with avoid significant preload depletion - Referred to [facility] for valve intervention by PCP - Will reach out to ID regarding feasibility of valvular intervention in the setting of disseminated histoplasmosis Pericardial effusion - Echo 03/22/23: Moderate pericardial effusion adjacent to the RA measuring 1.1 cm - Echo 09/28/23: Small 0.7 cm effusion adjacent to LV, 0.6 cm adjacent to RV, and moderate 1.2 cm adjacent to RA>> No evidence of tamponade - Known RA and disseminated histoplasmosis - Limited echo in 3 months Chronic HFpEF - NYHA Functional Class II stage C Heart Failure - Echo 09/28/23: EF 62%, grade LVDD, normal RV size/systolic function - NT pro BNP 08/30/23 of 1,379 - Volume status managed on Lasix 20 to 40 mg daily as needed and spironolactone 25 mg daily - Patient appears euvolemic on exam. - Encouraged to monitor sodium and fluid intake as well as daily weights Essential hypertension - Optimal control on spironolactone - Encouraged dietary sodium restriction/DASH diet - Reviewed risks of HTN and principles of treatment - Goal of BP <130/80 Rheumatoid arthritis - Currently off all meds due to histoplasma History of DVT - s/p IVC filter - On Coumadin Recurrent disseminated histoplasmosis - Follows with ID CONCLUSION: Patient presents today for follow-up an appears to be doing well from a cardiovascular standpoint. She was struggling with some volume overload which has since resolved with diuresis. She appears near euvolemic on exam today. Her repeat echocardiogram shows continued small to moderate pericardial effusion. I suspect this is in the setting of her currently untreated RA secondary to her disseminated histoplasmosis. This was discussed with Dr. Messina who recommends no further workup or treatment inregards to her pericardial effusion with close monitoring with limited echocardiogram in 3 months. Echocardiogram additionally shows worsening of her aortic stenosis now in the severe range. She apparently has been referred for valve intervention at [facility] by her PCP and is scheduled to be seen in December. I am concerned that she may not be al candidate for intervention given her disseminated histoplasmosis and will reach out to her infectious disease provider, Dr. Hart for further guidance regarding feasibility of such. Would be cautious with any further aggressive diuresis given preload dependence with her aortic stenosis and near euvolemic appearance. I have made no additions or changes to her medications. She should continue to actively engage in cardiovascular risk factor modification and follow up with Dr. Messina in 3-4 months, or sooner should need arise. CONTACT INFORMATION: Bibi Alegria APRN.[facility] Cardiology Nurse Practitioner Section of Regional Cardiology [facility] Dept of Cardiovascular Medicine [facility] [place] [address] [place] [address] Office Office This note was partially generated using [employer] voice recognition system and may contain errors related to that system including grammar, punctuation, spelling, and words that may be inappropriate documented in this encounterKnox [facility]08-[facility] History of Present illness Narrative* Ilda Miller RN - 10/17/2023 3:43 PM EDT [facility] Telephonic Outreach Provider Action/SHAYNE N/A Contacted for: Engagement Last questionnaire completed: 08/31/23 My Chart reminder letter sent 10/02/23 No response to date to My Chart questionnaire. Contact made with patient: No, left message. Ilda Miller RN October 17, 2023 3:48 PM documented in this encounterKnox [facility] Hospital08-22-2024 Instructions* Patient Instructions* Jimbo Swanson APRN.CNS - 10/11/2023 1:48 PM EDT Let us know right away if having any chest pain or feeling dizzy or like you could pass out or if you do pass out. Okay to use diclofenac gel on your knees. Try using acetaminophen hydrocodone as needed for pain of your knees. documented in this encounterKnox [facility] Hospital08-22-2024 History of Present illness Narrative* Jimbo Swanson APRN.CNS - 10/11/2023 1:03 PM EDT SUBJECTIVE: Depression Screening Never done Anxiety Screening Never done Advance Directive Discussion due on 02/19/2023 Covid-19 Vaccine( season) due on 03/01/2023 JEFFREY Haydee Bustamante is a 78 year old female. Her past medical history significant for GERD, meralgia paresthetica, history of embolism and thrombosis, recurrent, voice disorder, arthropathy, enthesopathy ofhip region, elevated liver enzymes, long-term current use of anticoagulation, herniated lumbar disc, atrophic vaginitis ganglion cyst essential hypertension rheumatoid arthritis hip and back pain, iron deficiency anemia, aortic stenosis with bicuspid valve, lung nodule bronchiectasis and COPD. Hog Sawyer: Florence Collins MD, for follow-up of lung nodules bronchiectasis. Sieve Repairer: Jane Montoya MD [facility]. Not taking Humira or methotrexate due to histoplasmosis, expects treatment to be completed in December. She notes significant knee pain. Has been using [id number] topical diclofenac. She was seen by Claudine Durán MD in May 2023 for follow-up appointment after discharge from [facility] after being in TCU after hospitalization. She was noted to have bilateral DVT in the hospital. Pain and swelling resolved while in hospital. Has been wearing compression. She was last seen by me July 10, 2023 for right leg swelling x 2 weeks. She noted right leg swellingfor about 2 weeks and right knee was very swollen and painful. Today notes that she has now had right leg swelling for 2 weeks. Right knee is very swollen. Decreased range of motion of the right kneeis present. Right leg is swollen from ankle to thigh level. Pain primarily in the right knee and right calf. No cords. She was treated with prednisone. Ultrasound of lower extremities was completed and showed no thrombophlebitis or DVT but did show a fluid collection at the knee. 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 She was then seen by Twyla Cuevas 08/08/2023 for follow-up regarding flareup of rheumatoid arthritisand swelling of her lower legs. She was treated with prednisone tapering dose furosemide 20 mg daily x 5 days, then as needed. She was then admitted to [facility] for GI bleed July 2023. She underwent cauterization of duodenal ulcer then small intestine subsequently with Dr. Orellana during this admission. No further GI bleeding is noted. Naproxen was discontinued during this admission, currently just taking Tylenol. Since last here she also had an appointment with Dr. Messina cardiology for follow-up of known bicuspid aortic valve, aortic stenosis, mitral stenosis hypertension and previous DVT on long-term oral anticoagulation with warfarin. Noted lower extremity edema thought to be multifactorial. Prior echocardiogram noted to have moderate pericardial effusion. Follow-up echocardiogram showed small pericardial effusion. Most recent echocardiograms shows severe aortic stenosis. She was seen by Dr. 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 Currently no coughing. Noted clinically excellent control. Noted need for treatment long-term with follow-up lab studies and a CAT scan to monitor things moving in the right direction. OAC: Currently no bleeding difficulties. Occasional bruising. [facility] coumadin clinic. HTN: Without report of headache, chest pain, palpitations, dyspnea, orthopnea, or PND. No dizzinesslightheadedness presyncope or syncope. Last 14 Encounter BP Readings: Date: BP: 10/11/2023 107/62 08/28/2023 129/69 08/27/2023 116/68 08/22/2023 116/72 08/08/2023 136/72 07/10/2023 119/66 06/05/2023 122/74 03/19/2023 110/67 03/03/2023 124/76 02/23/2023 112/56 02/07/2023 134/82 01/04/2023 128/75 10/27/2022 119/66 08/29/2022 142/78 Review of Systems Constitutional: Negative. Cardiovascular: Positive for leg swelling (significantly decresed). Musculoskeletal: Positive for arthralgias. Negative for back pain. Objective BP 107/62 Pulse 68 Resp 16 Wt 52.6 kg (115 lb 15.4 oz) BMI 20.54 kg/m Physical Exam Vitals and nursing note [...] present with a grade of 3/6. Comments: RUSB high pitched murmur c/w , 2-3+ murmur at mitral position Pulmonary: Effort: Pulmonary effort is normal. Abdominal: General: Bowel sounds are normal. Palpations: Abdomen is soft. Musculoskeletal: Right hand: Deformity present. Decreased range of motion. Left hand: Deformity present. Decreased range of motion. Lumbar back: Tenderness present. Right knee: Swelling present. Decreased range of motion. Tenderness present. Left knee: Swelling present. Decreased range of motion. Tenderness present. Right lower leg: Edema (scant) present. Left lower leg: No edema. Comments: There is decreased swelling of legs and the knee bilateral Skin: General: Skin is warm and dry. Neurological: General: No focal deficit present. Mental Status: She is alert and oriented to person, place, and time. ALLERGIES Allergen Reactions Penicillins Hives Medications itraconazole (SPORANOX) 10 mg/mL solution^Take 20 mL by mouth two times a day.^Disp: 1200 mL^Rfl: 0 spironolactone (ALDACTONE) 25 mg tablet^Take 1 tablet by mouth once daily.^Disp: 30 tablet^Rfl: 2 tiotropium bromide (SPIRIVA RESPIMAT) 2.5 mcg/actuation inhaler^Inhale 2 Puffs as instructed once daily. Inhale two puffs once daily.^Disp: 3 Each^Rfl: 3 furosemide (LASIX) 20 mg tablet^Take 1-2 tablets by mouth two times a day as needed. Take daily forx5 days and then can use as needed daily after that for swelling.^Disp: 60 tablet^Rfl: 1 predniSONE (DELTASONE) 20 mg tablet^1 tablet three times a day for 3 days, then 2 times a day for 3days, the one daily for 3 days.^Disp: 18 tablet^Rfl: 0 potassium chloride ER (KLOR-CON M20) 20 mEq tablet^Take 1 tablet by mouth two times a day.^Disp: 180 tablet^Rfl: 3 warfarin (COUMADIN) 5 mg tablet^Take 1 tablet by mouth once daily. or as directed^Disp: ^Rfl: gabapentin (NEURONTIN) 300 mg capsule^Take 1 capsule by mouth two times a day.^Disp: 180 capsule^Rfl: 3 fluticasone-salmeterol (WIXELA INHUB) 250-50 mcg/dose inhaler^Inhale 1 Puff as instructed two timesa day.^Disp: 3 Each^Rfl: 3 albuterol HFA (PROAIR HFA) 90 mcg/actuation inhaler^Inhale 2 Puffs as instructed every 4 hours as needed.^Disp: 1 Each^Rfl: 2 Mucus Clearing Device (QUAKE VIBRATORY PEP) renetta^Provide 1 device^Disp: 1 Each^Rfl: 0 warfarin (COUMADIN) 5 mg tablet^take 1 AND 1/2 tablets by mouth once daily ON SUNDAY, SUNDAY, SUNDAY, SUNDAY AND SUNDAY and 1 tablet by mouth once daily ON SUNDAY AND SUNDAY^Disp: 30 tablet^Rfl: 0 FOLIC ACID ORAL^Take by mouth.^Disp: ^Rfl: fluticasone (FLONASE) 50 mcg/actuation nasal spray^Use 1 [place] in each nostril once daily.^Disp: 3 Each^Rfl: [address] (PROTONIX) 40 mg tablet^Take 1 tablet by mouth once daily.^Disp: 90 tablet^Rfl: 3 vit A,C,K-Ecbc-Aezprg (OCUVITE PRESERVISION) 2,148 mcg-113 mg-45 mg-17.4mg tab^Take 2 tablets by mouth daily with breakfast.^Disp: ^Rfl: leucovorin (LEUCOVORIN) 15 mg tablet^Take 15 mg by mouth once daily.^Disp: ^Rfl: HUMIRA PEN 40 mg/0.8 mL pnkt^Inject 40 mg subcutaneously. Every other week.^Disp: ^Rfl: methotrexate 2.5 mg tablet^Take 2.5 mg by mouth every Sunday. PT takes 2 tablets in am and 1 tablets in pm^Disp: 12 tablet^Rfl: 0 Cholecalciferol, Vitamin D3, 1,000 unit ORAL Cap^Take 1 capsule by mouth once daily.^Disp: 1 capsule^Rfl: 0 omega-3 fatty acids/vitamin e(FISH OIL 1,000 MG CAP)^Take one(1) capsule daily.^Disp: ^Rfl: 0 THERAPEUTIC MULTIVITAMIN TAB^Take one(1) tablet daily.^Disp: ^Rfl: 0 diclofenac (VOLTAREN) 1 % topical gel^Apply 2 g to affected area four times daily. Both knees^Disp:50 g^Rfl: 1 HYDROcodone-acetaminophen (NORCO) 5-325 mg per tablet^Take 1 tablet by mouth at bedtime as needed for pain for up to 7 days.^Disp: 7 tablet^Rfl: 0 loperamide (IMODIUM) 2 mg cap(s)^Take 1 capsule by mouth three times a day as needed for diarrhea for up to 7 days.^Disp: 20 capsule^Rfl: 0 PAST MEDICAL HISTORY No date: Anemia Comment: Bone marrow involvement with histoplasmosis No date: Bronchiectasis (HCC) No date: COPD (chronic obstructive pulmonary disease) ([facility]) No date: Disseminated histoplasmosis Comment: Colitis, immunosuppression, 01/2018. No date: Diverticulosis of colon (without mention of hemorrhage) Comment: Diverticulosis 12/10/2014: DVT, recurrent, lower extremity, acute (HCC) No date: Esophageal reflux 02/25/2018: Hiatal hernia No date: Hypertension No date: Lung nodule No date: Personal history of unspecified urinary disorder 03/07/2015: 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 rheumatoid factor ([facility]) Comment: Dr. Hurley ([facility]) No date: Unspecified hemorrhoids without mention of complication Comment: Hemorrhoids Social History Tobacco Use Smoking status: Former Current packs/day: 0.00 Average packs/day: 1 pack/day for 10.0 years (10.0 ttl pk-yrs) Types: Cigarettes Start date: 02/19/1979 Quit date: 02/19/1989 Years since quittin.6 Smokeless tobacco: Never Tobacco comments: Late heavy smoker. Vaping Use Vaping status: Never Used Substance Use Topics Alcohol use: Yes Comment: [...] 1 Antitrypsin 90 - 200 mg/dL 124 TTE CONCLUSIONS: - Exam indication: Routine surveillance of moderate or severe valvular stenosis (>1yr) - The left ventricle is normal in size. There is mild concentric left ventricular hypertrophy. Left ventricular systolic function is normal. EF = 62 5% (2D biplane) Grade I left ventricular diastolic dysfunction. GLS= -18.0% Normal. - The right ventricle is normal in size. Right ventricular systolic function is normal. - The left atrial cavity is severely dilated. - There is moderate mitral stenosis caused by calcification - annular. The peak gradient is 17 mmHg and the mean gradient is 7 mmHg. There is mild (1+) mitral valve regurgitation. - There is mild (1+) tricuspid valve regurgitation. - There is moderately severe aortic valve stenosis caused by calcified valve. AV area is 0.85 cm (0.52 cm /m ) by continuity, VTI. The peak gradient is 48 mmHg, the mean gradient is 28 mmHg and the dimensionless valve index is 0.30. - Estimated right ventricular systolic pressure is 35 mmHg consistent with mild pulmonary hypertension. Estimated right atrial pressure is 8 mmHg based on IVC assessment. - Exam was compared with the prior CC echocardiographic exam performed on 09/05/2021. Prior AV gradients were 42/22 mmHg. TTE 03/22/2023 CONCLUSIONS: - Exam indication: Re-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 heart disease with change in clinical status - The left ventricle is normal in size. There is mild concentric left ventricular hypertrophy. Left ventricular systolic function is hyperdynamic. EF = 75 5% (2D biplane) Left ventricular diastolic function was not evaluated due to mitral stenosis. - The right ventricle is normal in size. Right ventricular systolic function is normal. - There is a moderate pericardial effusion adjacent to the right atrium measuring 1.1 cm. The inferior vena cava appears normal measuring 1.8 cm. The vessel decreases greater than 50 percent with inspiration. There is no echocardiographic evidence of tamponade. - There is moderate mitral stenosis caused by calcification - annular. MV area is 2.73 cm (1.75 cm /m ) by P1/2. The peak gradient is 31 mmHg and the mean gradient is 14 mmHg. Elevated gradients likely due to hyperdynamic LV systolic function. - Tricuspid aortic valve. There is moderately severe aortic valve stenosis caused by calcified valve. AV area is 0.92 cm (0.59 cm /m ) by continuity, VTI. The peak gradient is 73 mmHg, the mean gradient is 46 mmHg and the dimensionless valve index is 0.32. Prior pk/mn gradients 48/28mmHg. - Exam was compared with the prior echocardiographic exam performed on 09/22/2022([facility]). The mitral and aortic valve gradients are higher today. TTE 09/28/2023 CONCLUSIONS: - Exam indication: Limited for Pericardial Effusion - The left ventricle is normal in size. Left ventricular systolic function is normal. EF = 62 5% (2D biplane) Grade I left ventricular diastolic dysfunction. - The right ventricle is normal in size. Right ventricular systolic function is normal. - There is a small pericardial effusion adjacent to the left ventricle measuring 0.7 cm, a small pericardial effusion adjacent to the right ventricle measuring 0.6 cm and a moderate pericardial effusion adjacent to the right atrium measuring 1.2 cm. The inferior vena cava appears normal measuring 1.8 cm. The vessel decreases greater than 50 percent with inspiration. No apparent signs of cardiac tamponade. - There is moderate mitral stenosis. The peak gradient is 22 mmHg and the mean gradient is 10 mmHg. - There is moderate (2+) tricuspid valve regurgitation. - There is severe aortic valve stenosis. AV area is 0.94 cm (0.58 cm /m ) by continuity, VTI. The peak gradient is 64 mmHg, the mean gradient is 37 mmHg and the dimensionless valve index is 0.31. - Exam was compared with the prior OUTSIDE echocardiographic exam performed on 03/22/2023. No significant change with the pericardial effusion or valvular disease. ASSESSMENT/PLAN: 1. Aortic valve stenosis, etiology of cardiac valve disease unspecified - ICD9: 424.1, ICD10: I35.0(primary diagnosis) 2. Mitral valve stenosis, unspecified etiology - ICD9: 394.0, ICD10: I05.0 3. Pericardial effusion - ICD9: 423.9, ICD10: I31.39 Pericardial effusion appears stable in size by echocardiogram. Severe aortic stenosis is present, moderate tricuspid valve regurgitation, moderate mitral stenosis, dilated left atrium, preserved ejection fraction. Continue on spironolactone for now. - CONSULT TO CARDIOLOGY - Dr Drew [facility] 4. Gastrointestinal hemorrhage, unspecified gastrointestinal hemorrhage type - ICD9: 578.9, ICD10: K92.2 Hospital admission with treatment for GI bleed. Apparently now resolved by cautery. Remain off NSAIDs. - COMPLETE BLOOD COUNT AND DIFFERENTIAL - COMPREHENSIVE METABOLIC PANEL 5. Rheumatoid arthritis with positive rheumatoid factor, involving unspecified site (HCC) - ICD9: 714.0, ICD10: M05.9 Currently not taking Humira and methotrexate due to histoplasmosis infection. Avoiding NSAIDs due to GI bleed. Recommend diclofenac gel. Tylenol or hydrocodone acetaminophen as needed. - DICLOFENAC 1 % TOPICAL GEL - HYDROCODONE 5 MG-ACETAMINOPHEN 325 MG TABLET 6. Edema, unspecified type - ICD9: 782.3, ICD10: R60.9 This is nearly resolved. Weight has decreased 17 pounds since last here. Continued on spironolactone. 7. Blood loss anemia - ICD9: 280.0, ICD10: D50.0 Noted to have GI bleed, hospital admission. Cautery to offending duodenal and small bowel lesions. Hemoglobin and hematocrit were improving during admission. Recommend recheck today. Jimbo Swanson APRN.CNS Medical Decision Making: Problems: Moderate: 1+ chronic illnesses with change Data: Unique source(s) for external note(s) reviewed: 1 Unique test result(s) reviewed: 3+ Unique test(s) ordered: 2 Risk: Moderate: Drug management Medical Decision Making Level: 4 - Moderate documented in this encounterKnox [facility] Hospital08-13-2024 [facility] Medical Records Department [address] [place] [address] History Physical Exam 10/02/23 1246 MR#: [id number] Acct: [id number] Name: HAYDEE BUSTAMANTE Rep #: [id number] : 1945 78 From: Mathew Orellana DO PCP: Dr. Claudine Durán MD Status:[facility] Location: [place] [address] History and Physical Date of Admission: 10/02/23 F/U appt from ED on 08.13.23 for GI bleed. Pt states she is feeling good. Has swelling in lower extremities. Pt takes Pantoprazole 40mg, gabapentin 300mg, and suralfate 1gr. [facility] Medical History Severe aortic stenosis Thrombocytopenia Adult failure to thrive Leg edema Rheumatoid arthritis COPD (chronic obstructive pulmonary disease) Former smoker DVT (deep venous thrombosis) Pulmonary embolism Colitis COVID-19 Histoplasmosis Surgical History History of embolic filter insertion Hx of foot surgery Social History household members: none Smoking Status: Former smoker alcohol intake: never substance use type: does not use HPI HPI Chief Complaint: lower extremity cellulitis Details: HAYDEE BUSTAMANTE, is a 78 F who presents to the office today for hospital f/u. Patient was hospitalized from 08/13/23-08/18/23 for GI bleed. She presented to the ED initially on 08/12 for blood in her stool and a fall. Her hemoglobin in the ED was 5.4 and she received 2 units of blood. INR was also elevated at 4.8 and vitamin K given. Dr. Orellana performed EGD on 08/13 and found Oozing duodenal ulcer with pigmented material. Treated with a heater probe. Biopsied. She had no other signs of bleeding until 08/15 when she had a maroon colored stool. Dr. Orellana did another EGD and found Normal esophagus.Small hiatal hernia. 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 Treated with a heater probe. Office visit today (09/03/23), patient is doing well and has no GI concerns. She has been taking pantoprazole 40 mg BID and sucralfate 1g BID AC. She does admit to some painful lower extremity edema that she is seeing cardiology for. She denies hematemesis, dyspepsia, melena, diarrhea or constipation. She is taking her warfarin at night. 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 ROS Const Constitutional: No anorexia, fatigue, fever(s), weight change or sleep problems Eyes Eyes: No change in vision ENT ENT: No abnormal hearing, difficulty swallowing, mouth lesions, tongue swelling or throat swelling Resp Respiratory: No cough or shortness of breath Cardio Cardiology: No chest pain at rest, chest pain with exertion, shortness of breath or dyspnea on exertion Gastro GI: No difficulty swallowing Genitourinary-Female: No difficulty urinating or burning urination Musc Musculoskeletal: Positive for joint pain, joint swelling and Arthritis Skin Skin: No hair loss in leg, yellowing of the eye, itchy eyes, rash, skin ulcer or skin swelling Neuro Neurology: No abnormal hearing, abnormal movements, confusion, unsteady gait/balance or memory loss Psych Psychiatric: No anxiety, No confusion and No memory loss Endo Endocrine: No fatigue or weight change Aller/Imm Allergy/Immunologic: No itchy eyes, throat swelling or tongue swelling Jayme/Lymp Hematologic/Lymphatic: Positive for easy bruising Exam Const General: cooperative and comfortable Nutritional Appearance: average body habitus and well nourished HENMT Head: normal to inspection Ears: hearing grossly normal bilaterally Nose: external nose normal Face and sinus: normal facial exam Mouth: oral mucosae normal Throat: posterior oropharynx normal Eyes General: appearance normal, both eyes and all related structures Neck Neck: normal visual inspection Chest Chest palpation inspection: normal inspection of the chest and normal palpation of entire chest wall Resp Effort Inspection: normal respiratory effort Auscultation: Bilateral: Clear to Auscultation Cardio Palpation: normal PMI Rate: regular rate Rhythm: regular rhythm GI Inspection: normal to inspection Auscultation: normal bowel sounds Percussion: normal to percussion Palpation: no hepatosplenomegaly Skin General: no rashes or lesions noted Neuro General: patient alert Extrem General: normal to inspection and edema Psych Affect: normal affect Assessment and Plan Assessment and Plan (1) Gastric ulcer: Status: Acute (2) Duodenitis: Status: Acute Orders: Orders CBC W/Diff, Automated Today D64.9 - Anemia, unspecified Plan -Patient underwent two EGDs while hospitalized in July and was found to have a duodenal ulcer as (more content not included)...[facility] 09-28-2023 Telephone encounter Note* Telephone Encounter - Yesenia Weinstein LPN - 09/28/2023 10:19 AM EDT Prescription Refill Information The patient has been identified by name and date of : Yes Caregiver verified no other encounters exist for this prescription request: Yes Caregiver confirmed with patient/requestor that no other refills are due, in the near future, with this provider at this time: Yes The last office visit in the department: 08/22/23 Does the patient have a future office visit with this provider/department: Yes Requested Prescriptions Pending Prescriptions Disp Refills itraconazole (SPORANOX) 10 mg/mL solution 1200 mL 0 Sig: Take 20 mL by mouth two times a day. Yesenia Weinstein LPN September 28, 2023 10:21 AM [facility]08-09-2024 Miscellaneous Notes* Telephone Encounter - Yesenia Weinstein LPN - 09/28/2023 10:19 AM EDT Prescription Refill Information The patient has been identified by name and date of : Yes Caregiver verified no other encounters exist for this prescription request: Yes Caregiver confirmed with patient/requestor that no other refills are due, in the near future, with this provider at this time: Yes The last office visit in the department: 08/22/23 Does the patient have a future office visit with this provider/department: Yes Requested Prescriptions Pending Prescriptions Disp Refills itraconazole (SPORANOX) 10 mg/mL solution 1200 mL 0 Sig: Take 20 mL by mouth two times a day. Yesenia Weinstein LPN September 28, 2023 10:21 AM [facility] History of Present illness Narrative* Melissa Means RN - 09/27/2023 3:36 PM EDT pcp agrees with information * Melissa Means RN - 09/27/2023 12:06 PM EDT patient had inr completed at [facility] patients inr is 1.3 (patients inr range is 1.7-2.2) patient is currently taking 2.5mg Sat and 5mg all other days patients last dose change was on 09/20/23 due to a high level of 2.4 (dose at that time was 5mg daily) patient has had no changes in medication and no missed doses and no change in diet FYI - patient will be stopping coumadin on Sunday for a procedure next week Advised patient to continue on the same dose(s) and that they would only be contacted regarding dosage and follow up instructions after review with provider, if a change is needed. Written instructions given and patient verbalized understanding. Presently scheduled in 3 weeks (10/19/23) for follow up INR since patient will be stopping medication and this will be 2 week recheck after restarting it documented [facility] History of Present illness Narrative* Claudine Durán MD - 09/24/2023 8:11 AM EDT This note was created using Aptelariter. Subjective Haydee Bustamante is a 78 year old female. Patient presents with: Hospital F/U: [facility] ED/Hospital discharge 08/18/23 SUBJECTIVE: Haydee Bustamante is a 78 year old year old lady here today for hospital follow up appointment for review of medical conditions. Reviewed discharge summary Anemia down to 5.4; INR was 4.8 Up to 8.1 Hg a discharge No signs of GIB now. Taking iron still Legs still with a lot of swelling. Joint pain had previously improved with steroids and taking water pill helped for swelling. Lasix not helping as much now. PAST MEDICAL HISTORY No date: Anemia Comment: Bone marrow involvement with histoplasmosis No date: Bronchiectasis (HCC) No date: COPD (chronic obstructive pulmonary disease) (HCC) No date: Disseminated histoplasmosis Comment: Colitis, immunosuppression, 01/2018. No date: Diverticulosis of colon (without mention of hemorrhage) Comment: Diverticulosis 12/10/2014: DVT, recurrent, lower extremity, acute (HCC) No date: Esophageal reflux 02/25/2018: Hiatal hernia No date: Hypertension No date: Lung nodule No date: Personal history of unspecified urinary disorder 03/07/2015: 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 rheumatoid factor (HCC) Comment: Dr. Hurley ([facility]) No date: Unspecified hemorrhoids without mention of complication Comment: Hemorrhoids Current Outpatient Medications Medication Sig potassium chloride ER (KLOR-CON M20) 20 mEq tablet Take 1 tablet by mouth two times a day. warfarin (COUMADIN) 5 mg tablet Take 1 tablet by mouth once daily. or as directed gabapentin (NEURONTIN) 300 mg capsule Take 1 capsule by mouth two times a day. fluticasone-salmeterol (WIXELA INHUB) 250-50 mcg/dose inhaler Inhale 1 Puff as instructed two timesa day. albuterol HFA (PROAIR HFA) 90 mcg/actuation inhaler Inhale 2 Puffs as instructed every 4 hours as needed. Mucus Clearing Device (QUAKE VIBRATORY PEP) renetta Provide 1 device warfarin (COUMADIN) 5 mg tablet take 1 AND 1/2 tablets by mouth once daily ON SUNDAY, SUNDAY, SUNDAY, SUNDAY AND SUNDAY and 1 tablet by mouth once daily ON SUNDAY AND SUNDAY FOLIC ACID ORAL Take by mouth. fluticasone (FLONASE) 50 mcg/actuation nasal spray Use 1 [place] in each nostril once daily. pantoprazole DR (PROTONIX) 40 mg tablet Take 1 tablet by mouth once daily. vit A,C,S-Qkjg-Denebh (OCUVITE PRESERVISION) 2,148 mcg-113 mg-45 mg-17.4mg tab Take 2 tablets by mouth daily with breakfast. Cholecalciferol, Vitamin D3, 1,000 unit ORAL Cap Take 1 capsule by mouth once daily. omega-3 fatty acids/vitamin e(FISH OIL 1,000 MG CAP) Take one(1) capsule daily. THERAPEUTIC MULTIVITAMIN TAB Take one(1) tablet daily. spironolactone (ALDACTONE) 25 mg tablet Take 1 tablet by mouth once daily. tiotropium bromide (SPIRIVA RESPIMAT) 2.5 mcg/actuation inhaler Inhale 2 Puffs as instructed once daily. Inhale two puffs once daily. furosemide (LASIX) 20 mg tablet Take 1-2 tablets by mouth two times a day as needed. Take daily forx5 days and then can use as needed daily after that for swelling. itraconazole (SPORANOX) 10 mg/mL solution Take 20 mL by mouth two times a day. predniSONE (DELTASONE) 20 mg tablet 1 tablet three times a day for 3 days, then 2 times a day for 3days, the one daily for 3 days. naproxen (NAPROSYN) 500 mg tablet Take 1 tablet by mouth two times a day as needed. Take with food loperamide (IMODIUM) 2 mg cap(s) Take 1 capsule by mouth three times a day as needed for diarrhea for up to 7 days. leucovorin (LEUCOVORIN) 15 mg tablet Take 15 mg by mouth once daily. HUMIRA PEN 40 mg/0.8 mL pnkt Inject 40 mg subcutaneously. Every other week. methotrexate 2.5 mg tablet Take 2.5 mg by mouth every Sunday. PT takes 2 tablets in am and 1 tablets in pm Current Facility-Administered Medications Medication Dose Route Frequency perflutren lipid microspheres 1.3 mL in NaCl (PF) 0.9% 10 mL injection (DEFINITY) INTRAVENOUS DIRECTED PRN sodium chloride 0.9 % (flush) 10 mL (BD POSIFLUSH) 10 mL INTRAVENOUS DIRECTED PRN Review of Systems Objective BP 116/72 Pulse 70 Temp (!) 35.6 C (96 F) Resp 18 Wt 59.4 kg (130 lb 14.4 oz) SpO2 98% BMI 23.19 kg/m Physical Exam Constitutional: Appearance: Normal appearance. HENT: Head: Normocephalic. Eyes: Conjunctiva/sclera: Conjunctivae normal. Cardiovascular: Rate and Rhythm: Normal rate and regular rhythm. Heart sounds: Murmur heard. Systolic murmur is present with a grade of 3/6. Pulmonary: Effort: Pulmonary effort is normal. Breath sounds: Normal breath sounds. Musculoskeletal: Right lower leg: Edema present. Left lower leg: Edema present. Comments: Trace to 1+edema Skin: General: Skin is warm and dry. Neurological: General: No focal deficit present. Mental Status: She is alert and oriented to person, place, and time. Psychiatric: Mood and Affect: Mood normal. Behavior: Behavior normal. Thought Content: Thought content normal. Judgment: Judgment normal. Assessment and Plan Encounter Diagnosis ICD-10-CM 1. Anemia, unspecified type D64.9 COMPLETE BLOOD COUNT AND DIFFERENTIAL 2. Bilateral lower extremity edema R60.0 furosemide (LASIX) 20 mg tablet Discussed management. Lasix prescribed.Leg elevation and compression stockings 3. Chronic anticoagulation Z79.01 INR (POC) Dose titrated up since INR was low. 4. Moderate to severe aortic stenosis I35.0 Follow up with cardiology 5. Disseminated histoplasmosis B39.9 itraconazole (SPORANOX) 10 mg/mL solution Staying on itraconazole as directed by ID. Has follow up scheduled 6. Nodule of lower lobe of left lung R91.1 Incidental finding on Abd/Pelvis CT--0.9cm nodule. Has CTs done for follow up on histopplasmosis. NExt on 09/05/2023 (note stable nodule) 7. Encounter for long-term current use of medication Z79.899 COMPREHENSIVE METABOLIC PANEL BASIC METABOLIC PANEL INR (POC) Above issues addressed with patient. Patient involved in shared decision making for management of medical issues. History and medications reviewed. Epic updated as needed Refills and/or prescriptions taken care of and meds adjusted as indicated after reviewed history, exam and labs. Health Maintenance reviewed. Updated record and/or ordered tests as recorded. Encouraged on efforts at healthy diet and regular exercise and adequate sleep. Claudine Durán MD * Claudine Durán MD - 08/22/2023 11:17 AM EDT This note was created using Aptelariter. Subjective Haydee Bustamante is a 78 year old female. Patient presents with: Hospital F/U: [facility] ED/Hospital discharge 08/18/23 SUBJECTIVE: Haydee Bustamante is a 78 year old year old lady here today for hospital follow up appointment for review of medical conditions. Reviewed discharge summary Anemia down to 5.4; INR was 4.8 Up to 8.1 Hg a discharge No signs of GIB now. Taking iron still Legs still with a lot of swelling. Joint pain had previously improved with steroids and taking water pill helped for swelling. Lasix not helping as much now. PAST MEDICAL HISTORY Diagnosis Date Anemia Bone [...] positive rheumatoid factor (HCC) 03/07/2015 Dr. Hurley ([facility]) Unspecified hemorrhoids without mention of complication Hemorrhoids Current Outpatient Medications Medication Sig furosemide (LASIX) 20 mg tablet Take 1 tablet by mouth once daily as needed. Take daily for x5 daysand then can use as needed daily after that for swelling. potassium chloride ER (KLOR-CON M20) 20 mEq tablet Take 1 tablet by mouth two times a day. tiotropium bromide (SPIRIVA RESPIMAT) 2.5 mcg/actuation inhaler Inhale 2 Puffs as instructed once daily. Inhale two puffs once daily. itraconazole (SPORANOX) 10 mg/mL solution Take 20 mL by mouth two times a day. warfarin (COUMADIN) 5 mg tablet Take 1 tablet by mouth once daily. or as directed gabapentin (NEURONTIN) 300 mg capsule Take 1 capsule by mouth two times a day. fluticasone-salmeterol (WIXELA INHUB) 250-50 mcg/dose inhaler Inhale 1 Puff as instructed two timesa day. albuterol HFA (PROAIR HFA) 90 mcg/actuation inhaler Inhale 2 Puffs as instructed every 4 hours as needed. Mucus Clearing Device (QUAKE VIBRATORY PEP) renetta Provide 1 device warfarin (COUMADIN) 5 mg tablet take 1 AND 1/2 tablets by mouth once daily ON SUNDAY, SUNDAY, SUNDAY, SUNDAY AND SUNDAY and 1 tablet by mouth once daily ON SUNDAY AND SUNDAY FOLIC ACID ORAL Take by mouth. fluticasone (FLONASE) 50 mcg/actuation nasal spray Use 1 [place] in each nostril once daily. pantoprazole DR (PROTONIX) 40 mg tablet Take 1 tablet by mouth once daily. vit A,C,K-Rlpn-Odmvjd (OCUVITE PRESERVISION) 2,148 mcg-113 mg-45 mg-17.4mg tab Take 2 tablets by mouth daily with breakfast. Cholecalciferol, Vitamin D3, 1,000 unit ORAL Cap Take 1 capsule by mouth once daily. omega-3 fatty acids/vitamin e(FISH OIL 1,000 MG CAP) Take one(1) capsule daily. THERAPEUTIC MULTIVITAMIN TAB Take one(1) tablet daily. predniSONE (DELTASONE) 20 mg tablet 1 tablet three times a day for 3 days, then 2 times a day for 3days, the one daily for 3 days. (Patient not taking: Reported on 08/22/2023) naproxen (NAPROSYN) 500 mg tablet Take 1 tablet by mouth two times a day as needed. Take with food (Patient not taking: Reported on 08/22/2023) loperamide (IMODIUM) 2 mg cap(s) Take 1 capsule by mouth three times a day as needed for diarrhea for up to 7 days. leucovorin (LEUCOVORIN) 15 mg tablet Take 15 mg by mouth once daily. HUMIRA PEN 40 mg/0.8 mL pnkt Inject 40 mg subcutaneously. Every other week. (Patient not taking: Reported on 08/22/2023) methotrexate 2.5 mg tablet Take 2.5 mg by mouth every Sunday. PT takes 2 tablets in am and 1 tablets in pm (Patient not taking: Reported on 08/22/2023) No current facility-administered medications for this visit. Review of Systems Objective BP 116/72 Pulse 70 Temp (!) 35.6 C (96 F) Resp 18 Wt 59.4 kg (130 lb 14.4 oz) SpO2 98% BMI 23.19 kg/m Physical Exam Constitutional: Appearance: Normal appearance. HENT: Head: Normocephalic. Eyes: Conjunctiva/sclera: Conjunctivae normal. Cardiovascular: Rate and Rhythm: Normal rate and regular rhythm. Heart sounds: Murmur heard. Systolic murmur is present with a grade of 3/6. Pulmonary: Effort: Pulmonary effort is normal. Breath sounds: Normal breath sounds. Musculoskeletal: Right lower leg: Edema present. Left lower leg: Edema present. Comments: Trace to 1+edema Skin: General: Skin is warm and dry. Neurological: General: No focal deficit present. Mental Status: She is alert and oriented to person, place, and time. Psychiatric: Mood and Affect: Mood normal. Behavior: Behavior normal. Thought Content: Thought content normal. Judgment: Judgment normal. Assessment and Plan Encounter Diagnosis ICD-10-CM 1. Anemia, unspecified type D64.9 COMPLETE BLOOD COUNT AND DIFFERENTIAL 2. Bilateral lower extremity edema R60.0 furosemide (LASIX) 20 mg tablet Discussed management. Lasix prescribed.Leg elevation and compression stockings 3. Chronic anticoagulation Z79.01 INR (POC) Dose titrated up since INR was low. 4. Moderate to severe aortic stenosis I35.0 Follow up with cardiology 5. Disseminated histoplasmosis B39.9 itraconazole (SPORANOX) 10 mg/mL solution Staying on itraconazole as directed by ID. Has follow up scheduled 6. Nodule of lower lobe of left lung R91.1 Incidental finding on Abd/Pelvis CT--0.9cm nodule. Has CTs done for follow up on histopplasmosis. NExt on 09/05/2023 (note stable nodule) 7. Encounter for long-term current use of medication Z79.899 COMPREHENSIVE METABOLIC PANEL BASIC METABOLIC PANEL INR (POC) Above issues addressed with patient. Patient involved in shared decision making for management of medical issues. History and medications reviewed. Epic updated as needed Refills and/or prescriptions taken care of and meds adjusted as indicated after reviewed history, exam and labs. Health Maintenance reviewed. Updated record and/or ordered tests as recorded. Encouraged on efforts at healthy diet and regular exercise and adequate sleep. Claudine Durán MD documented in this encounterKn[facility]08-[facility] History of Present illness Narrative* Twyla Cuevas APRN.CNP - 09/21/2023 2:36 PM EDT Noted and agree, thank you! * Melissa Means RN - 09/21/2023 2:33 PM EDT patient had inr completed at [facility] patients inr is 2.4 (patients inr range is 1.7-2.2) patient is currently taking 5mg dialy patients last dose change was on 08/22/23 due to a low level of 1.1 (dose at that time was 2.5mg Tues,Sun and 5mg all other days) patient has had no changes in medication and no missed doses and no change in diet recommend: patient change coumadin to 2.5mg Sat and 5mg all other days and recheck in 1 week (patient has already taken medication today) patient has been scheduled for a 1 week follow up inr on 09/27/23 please review and advise on recommendation patient only needs called if provider does not agree with recommendation documented in this encounterKn[facility]07-17-[facility]24 Telephone encounter Note * Telephone Encounter - Thi Zambrano OCCA - 09/05/2023 8:48 AM EDT TC to patient who is informed of providers message and is agreeable to starting spironolactone. CARMEN Viveros [facility]07-17-2024 Miscellaneous Notes* Telephone Encounter - Thi Zambrano OCCA - 09/05/2023 8:48 AM EDT TC to patient who is informed of providers message and is agreeable to starting spironolactone. CARMEN Viveros * Telephone Encounter - Twyla Cuevas APRN.CNP - 09/05/2023 7:18 AM EDT Okay, to help the swelling and the potassium I am going to send in spironolactone for her to start,it is a potassium sparing diuretic, it should help with the swelling but will also help save her potassium. I sent this to [facility]. * Telephone Encounter - Maritza Preston LPN - 09/04/2023 4:22 PM EDT Haydee is taking Potassium 1 tablet twice daily, Lasix 40mg twice daily, she is not noticing any difference in the swelling, elevating as much as possible, wearing compression stockings daily, not today because she was not going anywhere. Legs look the same regardless if she wears the compression stockings are not, making hard to walk d/t swelling. Denies any shortness of breath, Patient had CBC done at [facility] yesterday. Patient does not have letter for Handicapped Swathi written 08/22/2023, asking for another copy to be mailed to her. Put on nurse's counter for Dr. Durán to sign, addressed envelope ready. Maritza Preston LPN * Telephone Encounter - Geni Cintron LPN - 09/04/2023 4:20 PM EDT Attempted to reach patient with no answer and unable to leave a message. * Telephone Encounter - Twyla Cuevas APRN.CNP - 09/04/2023 4:05 PM EDT Lab testing shows kidney function stable, potassium is low. Please see how often she has been taking her lasix and how often she is currently taking her potassium pills. documented in this encounterKn[facility]07-17-2024 Telephone encounter Note * Telephone Encounter - Twyla Cuevas APRN.CNP - 09/05/2023 7:18 AM EDT Okay, to help the swelling and the potassium I am going to send in spironolactone for her to start,it is a potassium sparing diuretic, it should help with the swelling but will also help save her potassium. I sent this to [facility]. [facility] Telephone encounter Note* Telephone Encounter - Maritza Preston LPN - 09/04/2023 4:22 PM EDT Haydee is taking Potassium 1 tablet twice daily, Lasix 40mg twice daily, she is not noticing any difference in the swelling, elevating as much as possible, wearing compression stockings daily, not today because she was not going anywhere. Legs look the same regardless if she wears the compression stockings are not, making hard to walk d/t swelling. Denies any shortness of breath, Patient had CBC done at [facility] yesterday. Patient does not have letter for Handicapped Swathi written 08/22/2023, asking for another copy to be mailed to her. Put on nurse's counter for Dr. Durán to sign, addressed envelope ready. Maritza Preston LPN [facility] Telephone encounter Note* Telephone Encounter - Geni Cintron LPN - 09/04/2023 4:20 PM EDT Attempted to reach patient with no answer and unable to leave a message. [facility] Telephone encounter Note* Telephone Encounter - Twyla Cuevas APRN.CNP - 09/04/2023 4:05 PM EDT Lab testing shows kidney function stable, potassium is low. Please see how often she has been taking her lasix and how often she is currently taking her potassium pills. [facility] History of Present illness Narrative* Ilda Miller RN - 08/31/2023 12:15 PM EDT CDM Telephonic Outreach Provider Action/FYI N/A Contacted for: Engagement & SDOH screening for food insecurity and transportation -no needs identified Last questionnaire completed: 03/13/23 My Chart reminder letter sent 04/16/23, 08/07/23 Telephonic outreach: 07/05/23-left VM No response to date to My Chart questionnaire. Of note: Recent [facility] discharge 08/18/23 Contact made with patient: Yes Patient identified by name and date of . Discussed care with patient Outcomes: Patient forgot, reminder given Are you experiencing any new or worsening symptoms you need to talk about today? 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 Routed to: No Action Needed PAN Education Provided this Outreach: No Upcoming appointments reviewed: Appointments for Next 60 Days Date Time Provider Location Dept Phone 09/20/2023 10:00 AM [facility]TICOAG [facility] [phone] 09/28/2023 10:30 AM [facility] [phone] 10/11/2023 1:00 PM SWANSON JIMBO [facility] [phone] 10/18/2023 10:00 AM [facility] [phone] Ilda Miller RN August 31, 2023 12:38 PM documented in this encounterKnox [facility]07-12-2024 Telephone encounter Note * Telephone Encounter - Danita Quintanilla LPN - 08/31/2023 9:30 AM EDT Prescription Refill Information The patient has been identified by name and date of : Yes Caregiver verified no other encounters exist for this prescription request: Yes Caregiver confirmed with patient/requestor that no other refills are due, in the near future, with this provider at this time: Yes The last office visit in the department: 08/22/23 Does the patient have a future office visit with this provider/department: Yes Requested Prescriptions Pending Prescriptions Disp Refills tiotropium bromide (SPIRIVA RESPIMAT) 2.5 mcg/actuation inhaler 3 Each 3 Sig: Inhale 2 Puffs as instructed once daily. Inhale two puffs once daily. Danita Quintanilla LPN August 31, 2023 9:30 AM [facility] Miscellaneous Notes* Telephone Encounter - Danita Quintanilla LPN - 08/31/2023 9:30 AM EDT Prescription Refill Information The patient has been identified by name and date of : Yes Caregiver verified no other encounters exist for this prescription request: Yes Caregiver confirmed with patient/requestor that no other refills are due, in the near future, with this provider at this time: Yes The last office visit in the department: 08/22/23 Does the patient have a future office visit with this provider/department: Yes Requested Prescriptions Pending Prescriptions Disp Refills tiotropium bromide (SPIRIVA RESPIMAT) 2.5 mcg/actuation inhaler 3 Each 3 Sig: Inhale 2 Puffs as instructed once daily. Inhale two puffs once daily. Danita Quintanilla LPN August 31, 2023 9:30 AM documented in this encounterKnox [facility] Hospital07-11-2024 History of Present illness Narrative* Melissa Means RN - 08/30/2023 3:46 PM EDT pcp agrees with information * Melissa Means RN - 08/30/2023 1:13 PM EDT patient had inr completed at [facility] patients inr is 1.9 (patients inr range is 1.7-2.2) patient is currently taking 5mg daily patients last dose change was on 08/22/23 due to a low level of 1.1 (dose at that time was 2.5mg Tues,Sun and 5mg all other days) patient has [...] verbalized understanding. Presently scheduled in 3 weeks (09/20/23) for follow up INR. documented in this encounterKnox [facility] Hospital07-11-2024 History of Present illness Narrative* Faviola Anthony RT(R) - 08/30/2023 1:40 PM EDT Radiology Service Progress Note PATIENT NAME: Haydee Bustamante DATE OF SERVICE: August 30, 2023 TIME: 3:28 PM PATIENT IDENTITY VERIFICATION COMPLETED USING TWO (2) IDENTIFIERS: Name and Date of confirmedby patient verbally. FALL SCREENING: Has the patient had 2 falls in the last year or 1 fall with injury or currently using an Ambulatory Assistive Device (Walker, Cane, Wheelchair, Crutches, etc.)? No PATIENT GENDER DATA: Female. status: : No status: NO. PATIENT RELEVANT IMPLANT DATA REVIEWED: Yes PATIENT PRESENTS WITH AN IMPLANTABLE OR ATTACHED DATA SCIENTIST: No RADIOLOGY DEPARTMENT: CT; Exam(s) Completed: Chest PERIPHERAL IV DATA: Not applicable SIGNED BY: RT Maryann(R) August 30, 2023 3:28 PM documented in this encounterKnox [facility] Hospital07-09-2024 History of Present illness Narrative* Geno Hart MD - 08/28/2023 9:00 AM EDT Patient presents with: Histoplasmosis : Disseminated due to immunocompromising meds HPI: 78-year-old woman with rheumatoid arthritis on Biologics, COPD and bronchiectasis, in the past found to have recurrent disseminated histoplasmosis and [facility] such with appropriate management. Went into the hospital in March transferred to [facility] from [place] for what was felt to be massive hemoptysis which did not hose turner to be that bad. She also had COVID which was treated with remdesivir and dexamethasone. She was appropriately on itraconazole solution since around mid February. 200 mg p.o. twice daily which she claims 100% compliance. Overall is doing much better. States she is as feisty as ever. Currently she is off immunosuppressive's for rheumatoid arthritis which it is bothering her some. She is not on any prednisone, Humira, methotrexate. She at one point went back to [place] for some type of edema that caused open sores on her legs which got treated in the hospital and became better. Currently states no fevers or chills. The prior horrible cough she had at the [facility] after hospitalization is gone. She has no wasting, appetite loss severe shortness of breath, current hemoptysis. She has no problem with her bowels except 2 weeks ago had a rectal bleed ended up seeing a money examiner in [facility] and after 3 units of blood did well. She had a 6-day admission and Dr. Orellana money examiner did an EGD with duodenal bleeding ulcer status post cautery. 3 bleeding areasof his small intestine were later cauterized. No histoplasmosis found read as her initial histoplasmosis years ago was found on colonic biopsy. Itraconazole solution started March 20, 2023. Social History Tobacco Use Smoking status: Former Packs/day: 1.00 Years: 10.00 Additional pack years: 0.00 Total pack years: 10.00 Types: Cigarettes Quit date: 02/19/1989 Years since quittin.5 Smokeless tobacco: Never Tobacco comments: Late heavy smoker. Vaping Use Vaping Use: Never used Substance Use Topics Alcohol use: Yes Comment: occasional Drug use: No Current Outpatient Medications Medication Sig Dispense Refill furosemide (LASIX) 20 mg tablet Take 1-2 tablets by mouth two times a day as needed. Take daily forx5 days and then can use as needed daily after that for swelling. 60 tablet 1 itraconazole (SPORANOX) 10 mg/mL solution Take 20 mL by mouth two times a day. 1200 mL 0 predniSONE (DELTASONE) 20 mg tablet 1 tablet three times a day for 3 days, then 2 times a day for 3days, the one daily for 3 days. 18 tablet 0 potassium chloride ER (KLOR-CON M20) 20 mEq tablet Take 1 tablet by mouth two times a day. 180 tablet 3 warfarin (COUMADIN) 5 mg tablet Take 1 tablet by mouth once daily. or as directed naproxen (NAPROSYN) 500 mg tablet Take 1 tablet by mouth two times a day as needed. Take with food 120 tablet 3 gabapentin (NEURONTIN) 300 mg capsule Take 1 capsule by mouth two times a day. 180 capsule 3 fluticasone-salmeterol (WIXELA INHUB) 250-50 mcg/dose inhaler Inhale 1 Puff as instructed two timesa day. 3 Each 3 albuterol HFA (PROAIR HFA) 90 mcg/actuation inhaler Inhale 2 Puffs as instructed every 4 hours as needed. 1 Each 2 loperamide (IMODIUM) 2 mg cap(s) Take 1 capsule by mouth three times a day as needed for diarrhea for up to 7 days. 20 capsule 0 Mucus Clearing Device (QUAKE VIBRATORY PEP) renetta Provide 1 device 1 Each 0 warfarin (COUMADIN) 5 mg tablet take 1 AND 1/2 tablets by mouth once daily ON SUNDAY, SUNDAY, SUNDAY, SUNDAY AND SUNDAY and 1 tablet by mouth once daily ON SUNDAY AND SUNDAY 30 tablet 0 FOLIC ACID ORAL Take by mouth. fluticasone (FLONASE) 50 mcg/actuation nasal spray Use 1 [place] in each nostril once daily. [address] (PROTONIX) 40 mg tablet Take 1 tablet by mouth once daily. 90 tablet 3 vit A,C,H-Dkqe-Lgjcad (OCUVITE PRESERVISION) 2,148 mcg-113 mg-45 mg-17.4mg tab Take 2 tablets by mouth daily with breakfast. leucovorin (LEUCOVORIN) 15 mg tablet Take 15 mg by mouth once daily. HUMIRA PEN 40 mg/0.8 mL pnkt Inject 40 mg subcutaneously. Every other week. methotrexate 2.5 mg tablet Take 2.5 mg by mouth every Sunday. PT takes 2 tablets in am and 1 tablets in pm 12 tablet 0 Cholecalciferol, Vitamin D3, 1,000 unit ORAL Cap Take 1 capsule by mouth once daily. 1 capsule 0 omega-3 fatty acids/vitamin e(FISH OIL 1,000 MG CAP) Take one(1) capsule daily. 0 THERAPEUTIC MULTIVITAMIN TAB Take one(1) tablet daily. 0 tiotropium bromide (SPIRIVA RESPIMAT) 2.5 mcg/actuation inhaler Inhale 2 Puffs as instructed once daily. Inhale two puffs once daily. 3 Each 3 Current Facility-Administered Medications Medication Dose Route Frequency Provider Last Rate Last Admin perflutren lipid microspheres 1.3 mL in NaCl (PF) 0.9% 10 mL injection (DEFINITY) INTRAVENOUS DIRECTED PRN William Messina, sodium chloride 0.9 % (flush) 10 mL (BD POSIFLUSH) 10 mL INTRAVENOUS DIRECTED PRN Ruben Messina DO ALLERGIES Allergen Reactions Penicillins Hives PAST MEDICAL HISTORY Diagnosis Date Anemia Bone [...] positive rheumatoid factor (HCC) 03/07/2015 Dr. Hurley ([facility]) Unspecified hemorrhoids without mention of complication [...] SPINE FUSN,POST INTERBODY 2011 Dr. Armando at [facility]. 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 Current Use of Anticoagulant Therapy Hnp (Herniated Nucleus Pulposus), Lumbar Atrophic Vaginitis Ganglion Cyst Essential Hypertension Rheumatoid Arthritis (Hcc) Pain in Right Hip Low Back Pain With Right-Sided Sciatica History of Recurrent Deep Vein Thrombosis (Dvt) Ddd (Degenerative Disc Disease), Lumbar Spondylolisthesis of Lumbar Region Iron Deficiency Anemia Due to Chronic Blood Loss Disseminated Histoplasmosis Aortic Valve Stenosis Lung Nodule Bronchiectasis Without Complication (Hcc) Copd Without Exacerbation (Hcc) Ulcer of Toe of Left Foot, Limited to Breakdown of Skin (Hcc) Pneumatosis Intestinalis Covid-19 Hemoptysis Gram-Negative Infection Anaerobic Bacterial Infection History of Immunosuppressive Therapy History of Penicillin Allergy Counseling, Unspecified Histoplasmosis Mitral Valve Stenosis, Non-Rheumatic ROS- Negative- General-fever, chills, myalgias Pulmonary-cough, hemoptysis, shortness of breath Cardiac-irregular heartbeat, pounding heartbeat, chest pain Gastrointestinal-nausea, vomiting, diarrhea Urinary-dysuria, hematuria, flank pain, suprapubic pain Skin-drug rash, unusual rashes Neurologic-confusion, motor deficit, new sensory deficit, new special sensory deficit Positive- Recent GI bleed status post cautery and doing better. Occasional cardiology issues that she has 2 valvular problems and follows up with cardiology. Does have some leg edema problems and recent open sores that are doing better. BP 129/69 Pulse 79 Temp (Src) 98.3 (Temporal) Resp 18 Ht 5' 3" (1.60m) Wt 132 lb 6.4 oz (60.1kg) SpO2 98% BMI 23.46 kg/(m^2). Physical exam- General-afebrile, VSS, appropriately conversant HEENT-unremarkable externally Mouth-clear Neck-supple Lymph nodes-none palpable in the neck, periclavicular, epitrochlear regions Heart-regular without murmur Lungs-clear Abdomen-soft, nontender, no HSM Joints-no acute change Neurologically-no gross motor deficits seen in extremities or motor cranial nerves. Skin-no drug rash DATA- Histo antigen 2.8 in the urine on March 08, 2023 August 21 creatinine 1.55, transaminases fine, CBC fine although hemoglobin 9.1 although she has been chronically anemic March 20 TB screen blood melendez negative, recent PPD in the ECF negative March 08 histoplasma immunodiffusion antibodies were positive H and M Histoplasma mycelial cf was 1-2 56 ASSESSMENT/PLAN: 1. Disseminated histoplasmosis Clinically excellent control. This will need to be treated quite a long time we will have to do follow-up lab studies and CAT scan to make sure things are moving in the right direction. Treatment is at least a year. - HISTOPLASMA AB CF; Future - HISTOPLASMA AG URINE; Future - HISTOPLASMA AB ID; Future - ITRACONAZOLE BLOOD; Future - CT CHEST WO IVCON; Future 2. Bronchiectasis without complication (HCC) Can allow for breathing in various issues and could be associated with other underlying diseases 3. COPD without exacerbation (HCC) Also allows pneumonias and infections 4. Rheumatoid arthritis with positive rheumatoid factor, involving unspecified site (HCC) Need for immunosuppressive therapy and allowing for histoplasma 5. History of immunosuppressive therapy Allows for histoplasma and is currently off 6. History of penicillin allergy Could affect care depending on type of infection 7. Encounter for long-term (current) use of antibiotics Tolerates clinically and lab melendez - HISTOPLASMA AB CF; Future - HISTOPLASMA AG URINE; Future - HISTOPLASMA AB ID; Future - ITRACONAZOLE BLOOD; Future 8. Counseling, unspecified Discussed with her the need for at least 1 year treatment, we need to assess where she is at compared to before in order to figure out when it is time to stop if it has been a year 9. H/O: GI bleed Currently from ulcers based on what we have red looking at history from her, multiple notes. Complicated case of treatment of infection that could cause with underlying debilities of immunocompromise and other diseases. Doing very well on therapy that we will need monitoring as long asshe is on it and the continuance of itraconazole is a solution for best absorption as the capsules can fail regularly. Need to monitor that particular drug as well. Return in about 4 months (around 12/29/2023). [facility] Telephone encounter Note * Telephone Encounter - Ashley Rahman MA - 08/27/2023 9:59 AM EDT Please call Pt to schedule Limited Echo prior to next OV with Bibi Alegria. [facility]07-08[facility] Miscellaneous Notes* Telephone Encounter - Ashley Rahman MA - 08/27/2023 9:59 AM EDT Please call Pt to schedule Limited Echo prior to next OV with Bibi Alegria. documented [facility]24 NoteHNO ID: [id number] Author: WILLIAM MESSINA, DO Service: ? Author Type: Physician Type: Progress Notes Filed: 08/27/2023 14:47 Note Text: [facility] SECTION [facility] CARDIOLOGY [facility] OUTPATIENT VISIT DATE August 27, 2023 PRIMARY CARE PHYSICIAN: Claudine Durán [address] [place] [address] HISTORY OF PRESENT ILLNESS: Ms. Bustamante is a 78 year old female. The patient returns for follow-up second history of known , MS, hypertension and previous DVT on long-term oral anticoagulation with warfarin. Since we have last seen her, she has developed lower extremity edema which may be multifactorial as she was hospitalized with a Perforated viscus earlier in the year. Her cholesterol medication was discontinued due to elevated liver enzymes. She states her edema is gradually improving. Recent BNP was normal. There are 2 recent echoes within couple weeks to 1 another. The earlier of which shows a moderate pericardial effusion. PLAN AND RECOMMENDATIONS: Patient has exertional symptoms along with known valvular heart disease and recent pericardial effusion. This point in time we should update an echocardiogram to reevaluate heart structure and function particularly the valves as well as more importantly pericardial effusion. We will update a BNP and BMP in a couple weeks time with her diuresis and resee her shortly thereafter. Dietary and lifestyle modification was reemphasized to facilitate risk factor reduction and heart failure prevention. Vitals: BP 116/68 Pulse 81 Ht 160 cm (5' 3") Wt 58.1 kg (128 lb) SpO2 99% BMI 22.67 kg/m? Physical Exam Vitals reviewed. Constitutional: General: She is not in acute distress. Appearance: Normal appearance. She is well-developed. HENT: Head: Normocephalic and atraumatic. Nose: Nose normal. Eyes: General: No scleral icterus. Right eye: No discharge. Left eye: No discharge. Pupils: Pupils are equal, round, and reactive to light. Neck: Thyroid: No thyromegaly. Vascular: No carotid bruit or JVD. Cardiovascular: Rate and Rhythm: Normal rate and regular rhythm. Heart sounds: Murmur heard. Crescendo decrescendo systolic murmur is present with a grade of 3/6. No friction rub. No gallop. Pulmonary: Effort: Pulmonary effort is normal. No respiratory distress. Breath sounds: Normal breath sounds. No wheezing or rales. Abdominal: General: Bowel sounds are normal. Palpations: Abdomen is soft. Musculoskeletal: General: Normal range of motion. Cervical back: Normal range of motion and neck supple. Right lower le+ Edema present. Left lower le+ Edema present. Skin: General: Skin is warm and dry. Capillary Refill: Capillary refill takes less than 2 seconds. Coloration: Skin is not pale. Neurological: Mental [...] chest tightness and shortness of breath. Cardiovascular: Positive for leg swelling. Negative for chest pain and palpitations. Gastrointestinal: Negative for abdominal pain, blood in stool, nausea and vomiting. Endocrine: Negative for cold intolerance and heat intolerance. Genitourinary: Negative for frequency and hematuria. Musculoskeletal: Negative for arthralgias and gait problem. Skin: Negative for color change, pallor and rash. Allergic/Immunologic: Negative for immunocompromised state. Neurological: Positive for weakness. Negative for dizziness, syncope, light-headedness and headaches. Hematological: Negative for adenopathy. Does not bruise/bleed easily. Psychiatric/Behavioral: Negative for confusion. The patient is not nervous/anxious. PAST MEDICAL HISTORY Diagnosis Date Anemia Bone marrow involvement with histoplasmosis Bronchiectasis (HCC) COPD (chronic obstructive pulmonary disease) (HCC) Disseminated histoplasmosis Colitis, immunosuppression, 01/2018. Diverticulosis of colon (without mention of hemorrhage) Diverticulosis DVT, recurrent, lower extremity, acute (HCC) 12/10/2014 Esophageal reflux Hiatal hernia 02/25/2018 Hypertension Lung nodule Personal history of unspecified urinary disorder 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 rheumatoid factor ([facility]) 03/07/2015 Dr. Hurley ([facility]) Unspecified hemorrhoids without mention of complication Hemorrhoids PAST SURGICAL HISTORY Procedure Laterality Date COLONOSCOPY FLX DX W/COLLJ SPEC WHEN PFRMD 10/2003 Colonoscopy COLONOSCOPY FLX DX W/COLLJ SPEC WHEN PFRMD 05/18/2014 Colonoscopy COL[facility]OSCOPY (more content not included)...[id number] of Present illness Narrative* William Messina, - 08/27/2023 8:28 AM EDT Images from the original note were not included. [facility] OUTPATIENT VISIT DATE August 27, 2023 PRIMARY CARE PHYSICIAN: Claudine Durán [address] [place] [address] HISTORY OF PRESENT ILLNESS: Ms. Bustamante is a 78 year old female. The patient returns for follow-up second history of known , MS,hypertension and previous DVT on long-term oral anticoagulation with warfarin. Since we have last seen her, she has developed lower extremity edema which may be multifactorial as she was hospitalizedwith a Perforated viscus earlier in the year. Her cholesterol medication was discontinued due to elevated liver enzymes. She states her edema is gradually improving. Recent BNP was normal. There are 2 recent echoes within couple weeks to 1 another. The earlier of which shows a moderate pericardial effusion. PLAN AND RECOMMENDATIONS: Patient has exertional symptoms along with known valvular heart disease and recent pericardial effusion. This point in time we should update an echocardiogram to reevaluate heart structure and function particularly the valves as well as more importantly pericardial effusion. We will update a BNP and BMP in a couple weeks time with her diuresis and resee her shortly thereafter. Dietary and lifestyle modification was reemphasized to facilitate risk factor reduction and heart failure prevention. Vitals: BP 116/68 Pulse 81 Ht 160 cm (5' 3") Wt 58.1 kg (128 lb) SpO2 99% BMI 22.67 kg/m Physical Exam Vitals reviewed. Constitutional: General: She is not in acute distress. Appearance: Normal appearance. She is well-developed. HENT: Head: Normocephalic and atraumatic. Nose: Nose normal. Eyes: General: No scleral icterus. Right eye: No discharge. Left eye: No discharge. Pupils: Pupils are equal, round, and reactive to light. Neck: Thyroid: No thyromegaly. Vascular: No carotid bruit or JVD. Cardiovascular: Rate and Rhythm: Normal rate and regular rhythm. Heart sounds: Murmur heard. Crescendo decrescendo systolic murmur is present with a grade of 3/6. No friction rub. No gallop. Pulmonary: Effort: Pulmonary effort is normal. No respiratory distress. Breath sounds: Normal breath sounds. No wheezing or rales. Abdominal: General: Bowel sounds are normal. Palpations: Abdomen is soft. Musculoskeletal: General: Normal range of motion. Cervical back: Normal range of motion and neck supple. Right lower le+ Edema present. Left lower le+ Edema present. Skin: General: Skin is warm and dry. Capillary Refill: Capillary refill takes less than 2 seconds. Coloration: Skin is not pale. Neurological: Mental [...] chest tightness and shortness of breath. Cardiovascular: Positive for leg swelling. Negative for chest pain and palpitations. Gastrointestinal: Negative for abdominal pain, blood in stool, nausea and vomiting. Endocrine: Negative for cold intolerance and heat intolerance. Genitourinary: Negative for frequency and hematuria. Musculoskeletal: Negative for arthralgias and gait problem. Skin: Negative for color change, pallor and rash. Allergic/Immunologic: Negative for immunocompromised state. Neurological: Positive for weakness. Negative for dizziness, syncope, light- headedness and headaches. Hematological: Negative for adenopathy. Does not bruise/bleed easily. Psychiatric/Behavioral: Negative for confusion. The patient is not nervous/anxious. PAST MEDICAL HISTORY Diagnosis Date Anemia Bone marrow involvement with histoplasmosis Bronchiectasis (HCC) COPD (chronic obstructive pulmonary disease) ([facility]) Disseminated histoplasmosis Colitis, immunosuppression, 01/2018. Diverticulosis of colon (without mention of hemorrhage) Diverticulosis DVT, recurrent, lower extremity, acute ([facility]) 12/10/2014 Esophageal reflux Hiatal hernia 02/25/2018 Hypertension Lung nodule Personal history of unspecified urinary disorder 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 rheumatoid factor ([facility]) 03/07/2015 Dr. Hurley ([facility]) Unspecified hemorrhoids without mention of complication [...] SPINE FUSN,POST INTERBODY 2011 Dr. Armando at [facility]. Diskectomy and laminectomy PAST SURGICAL HISTORY OF 03/07/1999 removal facial lesion PAST SURGICAL HISTORY OF 08/17/2014 excision soft tissue mass left index finger TONSILLECTOMY PRIMARY/SECONDARY <AGE 14 TRANSCATH RETRIEVAL,PERCUT 12/28/2006 Social History Tobacco Use Smoking status: Former [...] ALLERGIES Allergen Reactions Penicillins Hives CURRENT MEDICATIONS: furosemide (LASIX) 20 mg tablet Take 1-2 tablets by mouth two times a day as needed. Take daily forx5 days and then can use as needed daily after that for swelling. itraconazole (SPORANOX) 10 mg/mL solution Take 20 mL by mouth two times a day. predniSONE (DELTASONE) 20 mg tablet 1 tablet three times a day for 3 days, then 2 times a day for 3days, the one daily for 3 days. potassium chloride ER (KLOR-CON M20) 20 mEq tablet Take 1 tablet by mouth two times a day. tiotropium bromide (SPIRIVA RESPIMAT) 2.5 mcg/actuation inhaler Inhale 2 Puffs as instructed once daily. Inhale two puffs once daily. warfarin (COUMADIN) 5 mg tablet Take 1 tablet by mouth once daily. or as directed naproxen (NAPROSYN) 500 mg tablet Take 1 tablet by mouth two times a day as needed. Take with food gabapentin (NEURONTIN) 300 mg capsule Take 1 capsule by mouth two times a day. fluticasone-salmeterol (WIXELA INHUB) 250-50 mcg/dose inhaler Inhale 1 Puff as instructed two timesa day. albuterol HFA (PROAIR HFA) 90 mcg/actuation inhaler Inhale 2 Puffs as instructed every 4 hours as needed. Mucus Clearing Device (QUAKE VIBRATORY PEP) renetta Provide 1 device warfarin (COUMADIN) 5 mg tablet take 1 AND 1/2 tablets by mouth once daily ON SUNDAY, SUNDAY, SUNDAY, SUNDAY AND SUNDAY and 1 tablet by mouth once daily ON SUNDAY AND SUNDAY FOLIC ACID ORAL Take by mouth. fluticasone (FLONASE) 50 mcg/actuation nasal spray Use 1 [place] in each nostril once daily. pantoprazole DR (PROTONIX) 40 mg tablet Take 1 tablet by mouth once daily. vit A,C,Q-Okuj-Zsaxhu (OCUVITE PRESERVISION) 2,148 mcg-113 mg-45 mg-17.4mg tab Take 2 tablets by mouth daily with breakfast. leucovorin (LEUCOVORIN) 15 mg tablet Take 15 [...] THERAPEUTIC MULTIVITAMIN TAB Take one(1) tablet daily. loperamide (IMODIUM) 2 mg cap(s) Take 1 capsule by mouth three times a day as needed for diarrhea for up to 7 days. William Messina DO, FACC, [facility] Robotics Mechanic, [facility] Ambulatory Cardiology Robotics Mechanic, [facility] Cardiac Rehabilitation Robotics Mechanic, [facility] Cardiac Rehabilitation Robotics Mechanic, [facility] Congestive [facility] Clinic Robotics Mechanic, [facility] Ambulatory Cardiology Clinical Ramp And Cargo Supervisor Profressor of Medicine, [facility] Staff Metal Fabricator Welder, [place] and Edilma Pierce Department of Cardiovascular Medicine/Heart and Vascular [place], [facility] Please note: This note has been produced using speech recognition software and may contain errors related to that system including madelyn, punctuation, spelling, words, gender and phrases that may be inappropriate. documented [facility] Telephone encounter Note * Telephone Encounter - Gracy Atkins RN - 08/24/2023 3:57 PM EDT Spoke with pt. Swelling seems to not have went down since seeing PCP on 08/22/2023: Instructions Take Lasix 2 pills once daily. If still not getting swelling in legs down, can increase to 2 pills twice daily. Recommend taking around 2 to 3 PM so not having to get up too often at night. Once fluid retention/swelling is down, can stop Lasix. May resume as needed for swelling. If need to take daily dose to control swelling, okay to stay on med. Let us know how you are doing in 1 to 2 weeks. Pt has only been taking lasix 2 pills daily. Advised pt to follow PCP directions given by PCP and begin taking lasix 2 pills BID. Pt has been complaint with compression stockings and elevating feet. Pt was suppose to see Dr. Messina 08/13/23 but ended up going to the hospital that morning d/t bleeding. Scheduled pt with Dr. Messina next week. [facility]07-[facility] Miscellaneous Notes* Telephone Encounter - Gracy Atkins RN - 08/24/2023 3:57 PM EDT Spoke with pt. Swelling seems to not have went down since seeing PCP on 08/22/2023: Instructions Take Lasix 2 pills once daily. If still not getting swelling in legs down, can increase to 2 pills twice daily. Recommend taking around 2 to 3 PM so not having to get up too often at night. Once fluid retention/swelling is down, can stop Lasix. May resume as needed for swelling. If need to take daily dose to control swelling, okay to stay on med. Let us know how you are doing in 1 to 2 weeks. Pt has only been taking lasix 2 pills daily. Advised pt to follow PCP directions given by PCP and begin taking lasix 2 pills BID. Pt has been complaint with compression stockings and elevating feet. Pt was suppose to see Dr. Messina 08/13/23 but ended up going to the hospital that morning d/t bleeding. Scheduled pt with Dr. Messina next week. * Telephone Encounter - Shirley Mccloud - 08/24/2023 3:53 PM EDT Pt called back and would like to speak to the nurses about her issues. * Telephone Encounter - Gracy Atkins RN - 08/24/2023 1:47 PM EDT Could someone please reach out the patient to make sure they are doing okay. Not sure why were giving Lasix if her hemoglobin is 5.4 and treating the underlying issue in the first place?" Was seen on 08/22/23 by PCP for ER follow up d/t anemia: SUBJECTIVE: Haydee Bustamante is a 78 year old year old lady here today for hospital follow up appointment for review of medical conditions. Reviewed discharge summary Anemia down to 5.4; INR was 4.8 Up to 8.1 Hg a discharge No signs of GIB now. Taking iron still Legs still with a lot of swelling. Called pt, no answer. Advised to call back to schedule appt with Dr. Messina and to review how pt wasdoing since d/c from hospital. [facility] Tele[facility] encounter Note * Telephone Encounter - Shirley Mccloud - 08/24/2023 3:53 PM EDT Pt called back and would like to speak to the nurses about her issues. [facility] Telephone encounter Note* Telephone Encounter - Gracy Atkins RN - 08/24/2023 1:47 PM EDT Could someone please reach out the patient to make sure they are doing okay. Not sure why were giving Lasix if her hemoglobin is 5.4 and treating the underlying issue in the first place?" Was seen on 08/22/23 by PCP for ER follow up d/t anemia: SUBJECTIVE: Haydee Bustamante is a 78 year old year old lady here today for hospital follow up appointment for review of medical conditions. Reviewed discharge summary Anemia down to 5.4; INR was 4.8 Up to 8.1 Hg a discharge No signs of GIB now. Taking iron still Legs still with a lot of swelling. Called pt, no answer. Advised to call back to schedule appt with Dr. Messina and to review how pt wasdoing since d/c from hospital. [facility] History of Present illness Narrative* Melissa Means, PAULA - 08/22/2023 4:20 PM EDT pcp agrees with information * Melissa Means, PAULA - 08/22/2023 10:02 AM EDT patient had inr completed at [facility] patients inr is 1.1 (patients inr range is 1.7-2.2) patient is currently taking 2.5mg Tues,Sun and 5mg all other days patients last dose change unknown as change was made at hospital d/c patient has had no changes in medication except for coumadin and no change in diet recommend: patient change coumadin to 5mg daily and recheck in 1 week patient has been scheduled for a 1 week follow up inr on 08/30/23 please review and advise on recommendation patient only needs called if provider does not agree with recommendation [facility] Instructions* Patient Instructions* Claudine Durán MD - 08/22/2023 11:47 AM EDT Take Lasix 2 pills once daily. If still not getting swelling in legs down, can increase to 2 pills twice daily. Recommend taking around 2 to 3 PM so not having to get up too often at night. Once fluid retention/swelling is down, can stop Lasix. May resume as needed for swelling. If need to take daily dose to control swelling, okay to stay on med. Let us know how you are doing in 1 to 2 weeks. [facility] History of Present illness Narrative* Jimbo Swanson APRN.CNS - 08/09/2023 11:42 AM EDT Continue with current Coumadin dose unchanged and check INR in 2 weeks * Melissa Means RN - 08/09/2023 10:19 AM EDT patient had inr completed at [facility] patients inr is 2.1 (patients inr range is 1.7-2.2) patient is currently taking 7.5mg Thurs and 5mg all other days patients last dose change was on 07/26/23 due to a low level of 1.6 (dose at that time was 5mg daily) patient has had no changes in medication except for coumadin and no missed doses and no change in diet Advised patient to continue on the same dose(s) and that they would only be contacted regarding dosage and follow up instructions after review with provider, if a change is needed. Written instructions given and patient verbalized understanding. Presently scheduled in 2 weeks (08/22/23) for follow up INR since this is the first normal reading since dose change documented [facility]Kn[facility] History of Present illness Narrative* Twyla uCevas APRN.FINANCIAL ANALYSIS ADVISOR - 08/08/2023 2:37 PM EDT SUBJECTIVE Haydee Bustamante is a 78 year old female here today for acute concern. Chief Complaint Patient presents with: Edema HPI Haydee Bustamante is a 78 year old female. She is an established patient of Claudine Durán MD. Here today acutely for concerns of a flare up of her rheumatoid arthritis and issues with swelling in the lower legs. Wearing compression socks. Notes joint feel stiff and painful and this seems in part fromthe swelling. No urinary issues. No issues with cough, chest pain or chest tightness and no shortness of breath. EF is 70% on most recent ECHO. Avoids salt. Her medications were reviewed today and her list is now up to date. Medications Current Outpatient Medications Medication Sig potassium chloride ER (KLOR-CON M20) 20 mEq tablet Take 1 tablet by mouth two times a day. tiotropium bromide (SPIRIVA RESPIMAT) 2.5 mcg/actuation inhaler Inhale 2 Puffs as instructed once daily. Inhale two puffs once daily. itraconazole (SPORANOX) 100 mg capsule Take 2 capsules by mouth two times a day. itraconazole (SPORANOX) 10 mg/mL solution Take 20 mL by mouth two times a day. warfarin (COUMADIN) 5 mg tablet Take 1 tablet by mouth once daily. or as directed naproxen (NAPROSYN) 500 mg tablet Take 1 tablet by mouth two times a day as needed. Take with food gabapentin (NEURONTIN) 300 mg capsule Take 1 capsule by mouth two times a day. albuterol HFA (PROAIR HFA) 90 mcg/actuation inhaler Inhale 2 Puffs as instructed every 4 hours as needed. Mucus Clearing Device (QUAKE VIBRATORY PEP) renetta Provide 1 device warfarin (COUMADIN) 5 mg tablet take 1 AND 1/2 tablets by mouth once daily ON SUNDAY, SUNDAY, SUNDAY, SUNDAY AND SUNDAY and 1 tablet by mouth once daily ON SUNDAY AND SUNDAY FOLIC ACID ORAL Take by mouth. fluticasone (FLONASE) 50 mcg/actuation nasal spray Use 1 [place] in each nostril once daily. vit A,C,N-Nlro-Pfpxzi (OCUVITE PRESERVISION) 2,148 mcg-113 mg-45 mg-17.4mg tab Take 2 tablets by mouth daily with breakfast. leucovorin (LEUCOVORIN) 15 mg tablet Take 15 mg by mouth once daily. Cholecalciferol, Vitamin D3, 1,000 unit ORAL Cap Take 1 capsule by mouth once daily. omega-3 fatty acids/vitamin e(FISH OIL 1,000 MG CAP) Take one(1) capsule daily. THERAPEUTIC MULTIVITAMIN TAB Take one(1) tablet daily. predniSONE (DELTASONE) 20 mg tablet 1 tablet three times a day for 3 days, then 2 times a day for 3days, the one daily for 3 days. furosemide (LASIX) 20 mg tablet Take 1 tablet by mouth once daily as needed. Take daily for x5 daysand then can use as needed daily after that for swelling. fluticasone-salmeterol (WIXELA INHUB) 250-50 mcg/dose inhaler Inhale 1 Puff as instructed two timesa day. loperamide (IMODIUM) 2 mg cap(s) Take 1 capsule by mouth three times a day as needed for diarrhea for up to [address] (PROTONIX) 40 mg tablet Take 1 tablet by mouth once daily. HUMIRA PEN 40 mg/0.8 mL pnkt Inject 40 mg subcutaneously. Every other week. methotrexate 2.5 mg tablet Take 2.5 mg by mouth every Sunday. PT takes 2 tablets in am and 1 tablets in pm No current facility-administered medications for this visit. ALLERGIES Allergen Reactions Penicillins Hives ACTIVE PROBLEM LIST Covid-19 - 03/20/2023 Hemoptysis - 03/20/2023 Gram-Negative Infection - 03/20/2023 Anaerobic Bacterial Infection - 03/20/2023 History of Immunosuppressive Therapy - 03/20/2023 History of Penicillin Allergy - 03/20/2023 Counseling, Unspecified - 03/20/2023 Histoplasmosis - 03/20/2023 Pneumatosis Intestinalis - 03/19/2023 Ulcer of Toe of Left Foot, Limited to Breakdown of Skin (Hcc) - 07/11/2022 Copd Without Exacerbation (Hcc) - 08/28/2019 Comment: Moderate obstruction 03/2019 and 08/2019 PFTs. Bronchiectasis Without Complication (Hcc) - 04/26/2019 Comment: Continue present management.PFTs as discussed. Further eval and rx as indicated. Lung Nodule - 03/11/2019 Comment: 03/2018- 1.3cm... CT chest 02/2019- stable Aortic Valve Stenosis - 04/26/2018 Disseminated Histoplasmosis - 03/02/2018 Comment: Tissue biopsy from colonoscopy on 02/25 consistent with Histo Chronic immune suppression on Humira, Methotrexate, Prednisone Started on Itraconazole, ID consulted Iron Deficiency Anemia Due to Chronic Blood Loss - 01/24/2018 Comment: Added automatically from request for surgery [id number] (Degenerative Disc Disease), Lumbar - 07/30/2017 Spondylolisthesis of Lumbar Region - 07/30/2017 History of Recurrent Deep Vein Thrombosis (Dvt) - 10/29/2016 Pain in Right Hip - 05/05/2016 Low Back Pain With Right-Sided Sciatica - 05/05/2016 Essential Hypertension - 03/07/2015 Rheumatoid Arthritis (Hcc) - 03/07/2015 Comment: Dr. Hurley ([facility]) Ganglion Cyst - 08/17/2014 Atrophic Vaginitis - 03/06/2013 Hnp (Herniated Nucleus Pulposus), Lumbar - 03/20/2011 Elevated Liver Enzymes - 04/01/2009 Assisted Current Use of Anticoagulant Therapy - 04/01/2009 Arthropathy, Unspecified, Site Unspecified - 12/05/2006 Esophageal Reflux - 03/06/2005 Meralgia Paresthetica - 03/06/2005 Other Voice and Resonance Disorders - 03/06/2005 Social History Tobacco Use Smoking status: Former Packs/day: 1.00 Years: 10.00 Additional pack years: 0.00 Total pack years: 10.00 Types: Cigarettes Quit date: 02/19/1989 Years since quittin.4 Smokeless tobacco: Never Tobacco comments: Late heavy smoker. Vaping Use Vaping Use: Never used Substance Use Topics Alcohol use: Yes Comment: occasional Drug use: No Review of Systems Respiratory: Negative. Cardiovascular: Positive for leg swelling. Negative for chest pain and palpitations. Musculoskeletal: Positive for arthralgias. OBJECTIVE BP 136/72 Pulse 78 Wt 126 lb (57.2kg) Physical Exam Vitals and nursing note reviewed. Constitutional: General: She is awake. She is not in acute distress. Appearance: Normal appearance. She is well-developed and well-groomed. She is not ill-appearing, toxic-appearing or diaphoretic. HENT: Head: Normocephalic. Right Ear: External ear normal. Left Ear: External ear normal. Nose: Nose normal. Eyes: General: Vision grossly intact. Conjunctiva/sclera: Conjunctivae normal. Pupils: Pupils are equal, round, and reactive to light. Neck: Vascular: No JVD. Trachea: Trachea normal. Cardiovascular: Rate and Rhythm: Normal rate and regular rhythm. Pulses: Normal pulses. Heart sounds: Normal heart sounds. No murmur heard. Pulmonary: Effort: Pulmonary effort is normal. No accessory muscle usage, prolonged expiration or respiratory distress. Breath sounds: Normal breath sounds. Musculoskeletal: Cervical back: Neck supple. Right lower leg: Edema present. Left lower leg: Edema present. Skin: General: Skin is warm and dry. Capillary Refill: Capillary refill takes less than 2 seconds. Neurological: General: No focal deficit present. Mental Status: She is alert and oriented to person, place, and time. Mental status is at baseline. Psychiatric: Attention and Perception: Attention and perception normal. Mood and Affect: Mood and affect normal. Speech: Speech normal. Behavior: Behavior normal. Behavior is cooperative. Thought Content: Thought content normal. Cognition and Memory: Cognition and memory normal. Judgment: Judgment normal. ASSESSMENT/PLAN: 1. 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 rheumatoid factor (HCC) - ICD9: 714.0, ICD10: M05.79 (primary diagnosis) Prednisone taper short term. - PREDNISONE 20 MG TABLET 2. Edema, unspecified type - ICD9: 782.3, ICD10: R60.9 Start lasix x5 days then use PRN daily for increased edema, get labs next week to check kidney function and potassium. - FUROSEMIDE 20 MG TABLET 3. Encounter for therapeutic drug monitoring - ICD9: V58.83, ICD10: Z51.81 - BASIC METABOLIC PANEL Portions of this note have been entered by ancillary staff. I have reviewed and when necessary edited, so that they are an adequate record of my encounter with this patient Please note that parts of this document were created using voice recognition software and therefore may contain grammatical errors. Patient verbalizes understanding of instructions from today's visit and in agreement with treatmentplan. Questions answered. Agrees to call the office if questions, concerns of issues with acute symptoms not improving or if they worsen. See diagnoses and orders for additional plan(s). Allergies and medications were reviewed, list was updated, and refills given if needed. Past medical, surgical, social, and family history reviewed and updated as appropriate. Encouraged proper diet & exercise as well as compliance with taking medications. Age- appropriate health preventative measures were discussed. Return if symptoms worsen or fail to improve, for Keep next scheduled appointment.. GREG Guajardo documented [facility]Kn[facility] Telephone encounter Note * Telephone Encounter - Thi Zambrano OCCA - 08/07/2023 8:46 AM EDT Prescription Refill Information The patient has been identified by name and date of : Yes Caregiver verified no other encounters exist for this prescription request: Yes Caregiver confirmed with patient/requestor that no other refills are due, in the near future, with this provider at this time: Yes The last office visit in the department: 07/10/23 Does the patient have a future office visit with this provider/department: Yes, 10/11/2023 Requested Prescriptions Pending Prescriptions Disp Refills potassium chloride ER (KLOR-CON M20) 20 mEq tablet 180 tablet 3 Sig: Take 1 tablet by mouth two times a day. CARMEN Viveros August 07, 2023 8:47 AM [facility] Miscellaneous Notes* Telephone Encounter - Thi Zambrano OCCA - 08/07/2023 8:46 AM EDT Prescription Refill Information The patient has been identified by name and date of : Yes Caregiver verified no other encounters exist for this prescription request: Yes Caregiver confirmed with patient/requestor that no other refills are due, in the near future, with this provider at this time: Yes The last office visit in the department: 07/10/23 Does the patient have a future office visit with this provider/department: Yes, 10/11/2023 Requested Prescriptions Pending Prescriptions Disp Refills potassium chloride ER (KLOR-CON M20) 20 mEq tablet 180 tablet 3 Sig: Take 1 tablet by mouth two times a day. CARMEN Viveros August 07, 2023 8:47 AM documented in this encounterKn[facility]06-[facility]24 Telephone encounter Note * Telephone Encounter - Lynne Mann LPN - 07/31/2023 11:32 AM EDT Pt called and prescription below went to the wrong pharmacy. Prescription Refill Information The patient has been identified by name and date of : Yes Caregiver verified no other encounters exist for this prescription request: Yes Caregiver confirmed with patient/requestor that no other refills are due, in the near future, with this provider at this time: Yes The last office visit in the department: 07/10/23 Does the patient have a future office visit with this provider/department: Yes 10/11/23 Requested Prescriptions Pending Prescriptions Disp Refills tiotropium bromide (SPIRIVA RESPIMAT) 2.5 mcg/actuation inhaler 3 Each 3 Sig: Inhale 2 Puffs as instructed once daily. Inhale two puffs once daily. Lynne Mann LPN July 31, 2023 11:34 AM ] [facility] Miscellaneous Notes* Telephone Encounter - Lynne Mann LPN - 07/31/2023 11:32 AM EDT Pt called and prescription below went to the wrong pharmacy. Prescription Refill Information The patient has been identified by name and date of : Yes Caregiver verified no other encounters exist for this prescription request: Yes Caregiver confirmed with patient/requestor that no other refills are due, in the near future, with this provider at this time: Yes The last office visit in the department: 07/10/23 Does the patient have a future office visit with this provider/department: Yes 10/11/23 Requested Prescriptions Pending Prescriptions Disp Refills tiotropium bromide (SPIRIVA RESPIMAT) 2.5 mcg/actuation inhaler 3 Each 3 Sig: Inhale 2 Puffs as instructed once daily. Inhale two puffs once daily. Lynne Mann LPN July 31, 2023 11:34 AM ] documented in this encounterKn[facility]06-[facility] Telephone encounter Note * Telephone Encounter - Danielle Patel MA - 07/30/2023 9:24 AM EDT Prescription Refill Information The patient has been identified by name and date of : Yes Caregiver verified no other encounters exist for this prescription request: Yes Caregiver confirmed with patient/requestor that no other refills are due, in the near future, with this provider at this time: Yes The last office visit in the department: 07/10/23 Does the patient have a future office visit with this provider/department: Yes Requested Prescriptions Pending Prescriptions Disp Refills tiotropium bromide (SPIRIVA RESPIMAT) 2.5 mcg/actuation inhaler 3 Each 3 Sig: Inhale 2 Puffs as instructed once daily. Inhale two puffs once daily. Danielle Patel MA July 30, 2023 9:25 AM [facility] Miscellaneous Notes* Telephone Encounter - Danielle Patel MA - 07/30/2023 9:24 AM EDT Prescription Refill Information The patient has been identified by name and date of : Yes Caregiver verified no other encounters exist for this prescription request: Yes Caregiver confirmed with patient/requestor that no other refills are due, in the near future, with this provider at this time: Yes The last office visit in the department: 07/10/23 Does the patient have a future office visit with this provider/department: Yes Requested Prescriptions Pending Prescriptions Disp Refills tiotropium bromide (SPIRIVA RESPIMAT) 2.5 mcg/actuation inhaler 3 Each 3 Sig: Inhale 2 Puffs as instructed once daily. Inhale two puffs once daily. Danielle Patel MA July 30, 2023 9:25 AM documented in this encounterKn[facility]06-[facility]-2024 History of Present illness Narrative* Lauren Bowens APRN.CNP - 07/26/2023 3:21 PM EDT Agree with below recommendations. Lauren Bowens APRN.CNP * Melissa Means RN - 07/26/2023 11:06 AM EDT patient had inr completed at [facility] patients inr is 1.6 (patients inr range is 1.7-2.2( patient is currently taking 5mg daily patients last dose change was on 07/05/23 due to a high level of 3.5 (dose at that time was 5mg Mon,Wed and 7.5mg all other days) patient has had no changes in medication and no missed doses and no change in diet recommend: patient changes coumadin to 7.5mg Thurs and 5mg all other days and recheck in 2 weeks patient has been scheduled for a 2 week follow up inr on 08/09/23 please review and advise on recommendation patient only needs called if provider does not agree with recommendation documented in this encounterKn[facility]06-[facility] Telephone encounter Note * Telephone Encounter - Yesenia Weinstein LPN - 07/23/2023 11:04 AM EDT Spoke with patient and gave her providers message, however she states she did not hear back so she called in on Sunday and was given the message that the pills were called and she has already picked them up. Patient states that she was put on the liquid because there was some kind of contraindication with one of her other medications with the pill form however, she states she had been taking the pill form in the hospital and rehab for the last couple months. States she has an appointment withinfectious disease in August and will discuss with him. [facility] Miscellaneous Notes* Telephone Encounter - Yesenia Weinstein LPN - 07/23/2023 11:04 AM EDT Spoke with patient and gave her providers message, however she states she did not hear back so she called in on Sunday and was given the message that the pills were called and she has already picked them up. Patient states that she was put on the liquid because there was some kind of contraindication with one of her other medications with the pill form however, she states she had been taking the pill form in the hospital and rehab for the last couple months. States she has an appointment withinfectious disease in August and will discuss with him. * Telephone Encounter - Claudine Durán MD - 07/21/2023 1:55 AM EDT Looks like 100mg pills covered tier 1 and 200mg tier 4 so sending for 100 mg tablets. Hope pill will be available. Added note can give 200mg tablet if covered and available instead. Not sure why on liquid instead of tablets (?cost or availability) Looks like tablets might need prior authorization so clicked the PA button. The following approved medication requests have been transmitted electronically. Requested Prescriptions Signed Prescriptions Disp Refills itraconazole (SPORANOX) 100 mg capsule 120 capsule 0 Sig: Take 2 capsules by mouth two times a day. Authorizing Provider: CLAUDINE DURÁN MD * Telephone Encounter - Lulu Quigley RN - 07/20/2023 4:00 PM EDT Patient calls to report that she is not able to get the Sporanox liquid from any pharmacy until maybe Sunday and if so the only amount that she will be able to get is 2 bottles d/t backorder. Patient asking if she could switch over to pill form for now until she is able to get the liquid supply. Patient has enough supply to get through Sunday07/21/2023 or maybe one dose on Sunday07/22/2023. Please review and advise, Lluu Quigley RN documented in this encounterKn[facility]06-[facility]24 Telephone encounter Note * Telephone Encounter - Claudine Durán MD - 07/21/2023 1:55 AM EDT Looks like 100mg pills covered tier 1 and 200mg tier 4 so sending for 100 mg tablets. Hope pill will be available. Added note can give 200mg tablet if covered and available instead. Not sure why on liquid instead of tablets (?cost or availability) Looks like tablets might need prior authorization so clicked the PA button. The following approved medication requests have been transmitted electronically. Requested Prescriptions Signed Prescriptions Disp Refills itraconazole (SPORANOX) 100 mg capsule 120 capsule 0 Sig: Take 2 capsules by mouth two times a day. Authorizing Provider: CLAUDINE DURÁN MD [facility] Telephone encounter Note* Telephone Encounter - Luul Quigley RN - 07/20/2023 4:00 PM EDT Patient calls to report that she is not able to get the Sporanox liquid from any pharmacy until maybe Sunday and if so the only amount that she will be able to get is 2 bottles d/t backorder. Patient asking if she could switch over to pill form for now until she is able to get the liquid supply. Patient has enough supply to get through Sunday07/21/2023 or maybe one dose on Sunday07/22/2023. Please review and advise, Lulu Quigley RN [facility] Telephone encounter Note* Telephone Encounter - Claudine Durán MD - 07/18/2023 1:17 PM EDT The following approved medication requests have been transmitted electronically. Requested Prescriptions Pending Prescriptions Disp Refills itraconazole (SPORANOX) 10 mg/mL solution 1200 mL 0 Sig: Take 20 mL by mouth two times a day. Claudine Durán MD [facility] Miscellaneous Notes* Telephone Encounter - Claudine Durán MD - 07/18/2023 1:17 PM EDT The following approved medication requests have been transmitted electronically. Requested Prescriptions Pending Prescriptions Disp Refills itraconazole (SPORANOX) 10 mg/mL solution 1200 mL 0 Sig: Take 20 mL by mouth two times a day. Claudine Durán MD * Telephone Encounter - Danielle Patel MA - 07/17/2023 2:43 PM EDT Patient has been identified by name and date of : Yes Patient phones for refill(s): Requested Prescriptions Pending Prescriptions Disp Refills itraconazole (SPORANOX) 10 mg/mL solution 1200 mL 0 Sig: Take 20 mL by mouth two times a day. Date of last office visit in primary care: 07/10/2023 Date of next office visit in primary care: 10/11/2023 Please advise. Thank you. Danielle Patel MA. documented in this encounterKn[facility]05-28-2024 Telephone encounter Note * Telephone Encounter - Danielle Patel MA - 07/17/2023 2:43 PM EDT Patient has been identified by name and date of : Yes Patient phones for refill(s): Requested Prescriptions Pending Prescriptions Disp Refills itraconazole (SPORANOX) 10 mg/mL solution 1200 mL 0 Sig: Take 20 mL by mouth two times a day. Date of last office visit in primary care: 07/10/2023 Date of next office visit in primary care: 10/11/2023 Please advise. Thank you. Danielle Patel MA. [facility]05-24-2024 Telephone encounter Note* Telephone Encounter - Jimbo Swanson APRN.CNS - 07/13/2023 12:00 PM EDT OK please schedule with ortho [facility]05-24-2024 Miscellaneous Notes* Telephone Encounter - Jimbo Swanson APRN.CNS - 07/13/2023 12:00 PM EDT OK please schedule with ortho * Telephone Encounter - Diana Evans LPN - 07/13/2023 9:17 AM EDT Patient aware of results and provider recommended follow up. Patient would like to see an orthopedic Provider here in [place] at the [facility]. Aware may need to be scheduled with a PA instead of a Dr and verbalizes understanding. If a consult or referral needed, please call patient after consult ordered, to assist in schedulingappointment. Patient is on 3rd day of Prednisone today. States had a better day yesterday than in a long time and accomplished a lot.. No pain and less edema. Diaan Evans LPN * Telephone Encounter - Yesenia Weinstein LPN - 07/12/2023 3:44 PM EDT No answer. Left message for patient to call office and ask to speak to a nurse regarding Ultrasoundresults * Telephone Encounter - Jimbo Swanson APRN.CNS - 07/12/2023 3:14 PM EDT No thrombophlebitis or DVT. Does have fluid collection at her knee. Would recommend seeing orthopedist or scrap metal collector for this at her earliest convenience, check to see if prednisone is helping. Left message. documented [facility] Telephone encounter Note * Telephone Encounter - Diana Evans LPN - 07/13/2023 9:17 AM EDT Patient aware of results and provider recommended follow up. Patient would like to see an orthopedic Provider here in [place] at the [facility]. Aware may need to be scheduled with a PA instead of a Dr and verbalizes understanding. If a consult or referral needed, please call patient after consult ordered, to assist in schedulingappointment. Patient is on 3rd day of Prednisone today. States had a better day yesterday than in a long time and accomplished a lot.. No pain and less edema. Diana vEans LPN [facility]05-23-2024 Telephone encounter Note* Telephone Encounter - Yesenia Weinstein LPN - 07/12/2023 3:44 PM EDT No answer. Left message for patient to call office and ask to speak to a nurse regarding Ultrasoundresults [facility]05-23-2024 Telephone encounter Note* Telephone Encounter - Jimbo Swanson APRN.CNS - 07/12/2023 3:14 PM EDT No thrombophlebitis or DVT. Does have fluid collection at her knee. Would recommend seeing orthopedist or scrap metal collector for this at her earliest convenience, check to see if prednisone is helping. Left message. [facility]05-23-2024 History of Present illness Narrative* Jimbo Swanson APRN.CNS - 07/12/2023 3:08 PM EDT Continue Coumadin dose unchanged and check INR in 2 weeks * Melissa Means RN - 07/12/2023 10:12 AM EDT patient had inr completed at [facility] patients inr is 1.8 (patients inr range is 1.7-2.2) patient is currently taking 5mg daily patients last dose change was on 07/05/23 due to a high level of 3.5 (dose at that time was 5mg Mon,Wed and 7.5mg all other days) patient has had a change in medication besides coumadin as patient is current taking prednisone andno uninstructed missed doses and no change in diet Advised patient to continue on the same dose(s) and that they would only be contacted regarding dosage and follow up instructions after review with provider, if a change is needed. Written instructions given and patient verbalized understanding. Presently scheduled in 2 weeks (07/26/23) for follow up INR since this is the first normal reading since dose change documented in this encounterKn[facility]05-[facility] History of Present illness Narrative* Jimbo Swanson APRN.CNS - 07/10/2023 1:53 PM EDT SUBJECTIVE: RSV Vaccine(1 - 1-dose 60+ series) Never done Advance Directive Discussion due on 02/19/2023 Behavioral Health Screening Never done Covid-19 Vaccine( season) due on 03/01/2023 HPI Haydee Bustamante is a 77 year old female. Her past medical history significant for GERD, meralgia paresthetica, history of embolism and thrombosis, recurrent, voice disorder, arthropathy, enthesopathy ofhip region, elevated liver enzymes, long-term current use of anticoagulation, herniated lumbar disc, atrophic vaginitis ganglion cyst essential hypertension rheumatoid arthritis hip and back pain, iron deficiency anemia, aortic stenosis with bicuspid valve, lung nodule bronchiectasis and COPD. Hog Sawyer: Florence Collins MD, for follow-up of lung nodules bronchiectasis. Noted are a likely etiology for underlying bronchiectasis. Metal Fabricator Welder: William GOTTI, aortic stenosis. Sieve Repairer: Crystal Gin. Reports currently not taking Humira or methotrexate due to histoplasmosis. Infectious disease Dr. Hart, August appointment. She was seen by his PCP in May 2023 [facility]. She was noted to have bilateral DVT in the hospital. Pain and swelling resolved while in hospital. Has been wearing compression. Today notes that she has now had right leg swelling for 2 weeks. Right knee is very swollen. Decreased range of motion of the right knee is present. Right leg is swollen from ankle to thigh level. Pain primarily in the right knee and right calf. No cords. OAC: no bleeding difficulties. Occasional bruising. [facility] coumadin clinic. INR (POCT) Date Value Ref Range Status 07/05/2023 3.5 (H) 0.8 - 1.2 Final Review of Systems Constitutional: Negative. Cardiovascular: Positive for leg swelling. Musculoskeletal: Positive for arthralgias. Negative for back pain. Objective BP 119/66 Pulse 94 Resp 16 Wt 55.8 kg (123 lb) BMI 21.79 kg/m Physical Exam Vitals and nursing note [...] is normal. Musculoskeletal: Lumbar back: Tenderness present. Right knee: Swelling present. Decreased range of motion. Tenderness present. Right lower leg: Edema (1-2+) present. Left lower leg: Edema (scant) present. Skin: General: Skin is warm and dry. Neurological: General: No focal deficit present. Mental Status: She is alert and oriented to person, place, and time. ALLERGIES Allergen Reactions Penicillins Hives Medications naproxen (NAPROSYN) 500 mg tablet^Take 1 tablet by mouth two times a day as needed. Take with food^Disp: 120 tablet^Rfl: 3 gabapentin (NEURONTIN) 300 mg capsule^Take 1 capsule by mouth two times a day.^Disp: 180 capsule^Rfl: 3 itraconazole (SPORANOX) 10 mg/mL solution^Take 20 mL by mouth two times a day.^Disp: 1200 mL^Rfl: 0 fluticasone-salmeterol (WIXELA INHUB) 250-50 mcg/dose inhaler^Inhale 1 Puff as instructed two timesa day.^Disp: 3 Each^Rfl: 3 albuterol HFA (PROAIR HFA) 90 mcg/actuation inhaler^Inhale 2 Puffs as instructed every 4 hours as needed.^Disp: 1 Each^Rfl: 2 Mucus Clearing Device (QUAKE VIBRATORY PEP) renetta^Provide 1 device^Disp: 1 Each^Rfl: 0 warfarin (COUMADIN) 5 mg tablet^take 1 AND 1/2 tablets by mouth once daily ON SUNDAY, SUNDAY, SUNDAY, SUNDAY AND SUNDAY and 1 tablet by mouth once daily ON SUNDAY AND SUNDAY^Disp: 30 tablet^Rfl: 0 FOLIC ACID ORAL^Take by mouth.^Disp: ^Rfl: tiotropium bromide (SPIRIVA RESPIMAT) 2.5 mcg/actuation inhaler^Inhale 2 Puffs as instructed once daily. Inhale two puffs once daily.^Disp: 3 Each^Rfl: 3 fluticasone (FLONASE) 50 mcg/actuation nasal spray^Use 1 [place] in each nostril once daily.^Disp: 3 Each^Rfl: 3 vit A,C,Q-Pixg-Yzjogi (OCUVITE PRESERVISION) 2,148 mcg-113 mg-45 mg-17.4mg tab^Take [...] MULTIVITAMIN TAB^Take one(1) tablet daily.^Disp: ^Rfl: 0 warfarin (COUMADIN) 5 mg tablet^Take 1 tablet by mouth once daily. or as directed^Disp: ^Rfl: predniSONE (DELTASONE) 10 mg tablet^Take 4 tabs daily for 3 days, then 2 tabs daily for 3 days, then 1 tab daily for 3 days with food.^Disp: 21 tablet^Rfl: 0 loperamide (IMODIUM) 2 mg cap(s)^Take 1 capsule by mouth three times a day as needed for diarrhea for up to 7 days.^Disp: 20 capsule^Rfl: [address] (PROTONIX) 40 mg tablet^Take 1 tablet by mouth once daily.^Disp: 90 tablet^Rfl: 3 (Patient not taking: Reported on 06/05/2023) PAST MEDICAL HISTORY Diagnosis Date Anemia Bone [...] positive rheumatoid factor (HCC) 03/07/2015 Dr. Hurley ([facility]) Unspecified hemorrhoids without mention of complication [...] 90 - 200 mg/dL 124 ASSESSMENT/PLAN: 1. Acute pain of right knee - ICD9: 719.46, ICD10: M25.561 (primary diagnosis) - US LEG VEIN DVT UNL VAS LAB 2. Chronic anticoagulation - ICD9: V58.61, ICD10: Z79.01 - WARFARIN 5 MG TABLET 3. Hip pain, acute, left - ICD9: 719.45, ICD10: M25.552 - PREDNISONE 10 MG TABLET 4. Pain and swelling of right lower leg - ICD9: 729.5, 729.81, ICD10: M79.661, M79.89 - US LEG VEIN DVT UNL VAS LAB Concern for recurrence of DVT. Recommend ultrasound today. Appears to have flare of arthritis right knee. Currently off Humira and methotrexate due to histoplasmosis. Prednisone taper. Recheck 1 week Jimbo Swanson APRN.CNS Medical Decision Making: Problems: Moderate: 1+ chronic illnesses with change Data: Unique test(s) ordered: 1 Risk: Moderate: Drug management Medical Decision Making Level: 4 - Moderate documented in this encounterKn[facility]05-[facility]24 History of Present illness Narrative* Melissa Means RN - 07/05/2023 4:27 PM EDT PATIENT NOTIFIED OF INFORMATION * Jimbo Swanson APRN.CNS - 07/05/2023 2:21 PM EDT Agree hold Coumadin today and then take 5 mg daily starting tomorrow and check INR in 1 week * Melissa Means RN - 07/05/2023 1:48 PM EDT patient had inr completed at [facility] patients inr is 3.5 (patients inr range is 1.7-2.2) patient is currently taking 5mg Mon,Wed and 7.5mg all other days patients last dose change unknown as this is the dose she was told at [facility] discharge patient has had no changes in medication and no missed doses and no change in diet recommend: patient hold dose today and then go to 5mg daily and recheck in 1 week patient has been scheduled for a 1 week follow up inr on 07/12/23 please review and advise on recommendation documented in this encounterKnox [facility]05-[facility]24 History of Present illness Narrative* Ilda Miller RN - 07/05/2023 4:00 PM EDT [facility] Telephonic Outreach Provider Candelaria/SHAYNE N/A Contacted for: Engagement Last questionnaire completed: 03/13/23 My Chart reminder letter sent 04/16/23 No response to date to My Chart questionnaire. Contact made with patient: No, left message. Ilda Miller RN July 05, 2023 4:04 PM documented in this encounterKnox [facility]05-13-2024 Telephone encounter Note * Telephone Encounter - Thi Zambrano OCCA - 07/02/2023 9:11 AM EDT Patient has been identified by name and date of : Yes Patient phones for refill(s): Requested Prescriptions Pending Prescriptions Disp Refills naproxen (NAPROSYN) 500 mg tablet 120 tablet 3 Sig: Take 1 tablet by mouth two times a day as needed. Take with food Date of last office visit in primary care: 06/05/2023 Date of next office visit in primary care: 10/11/2023 Please advise. Thank you. CARMEN Viveros. [facility]05-13-2024 Miscellaneous Notes* Telephone Encounter - Thi Zambrano OCCA - 07/02/2023 9:11 AM EDT Patient has been identified by name and date of : Yes Patient phones for refill(s): Requested Prescriptions Pending Prescriptions Disp Refills naproxen (NAPROSYN) 500 mg tablet 120 tablet 3 Sig: Take 1 tablet by mouth two times a day as needed. Take with food Date of last office visit in primary care: 06/05/2023 Date of next office visit in primary care: 10/11/2023 Please advise. Thank you. CARMEN Viveros. documented in this encounterKnox [facility] Hospital05-13-2024 Telephone encounter Note * Telephone Encounter - Danielle Patel MA - 07/02/2023 9:05 AM EDT Patient has been identified by name and date of : Yes Patient phones for refill(s): Requested Prescriptions Pending Prescriptions Disp Refills gabapentin (NEURONTIN) 300 mg capsule 180 capsule 3 Sig: Take 1 capsule by mouth two times a day. Date of last office visit in primary care: 06/05/2023 Date of next office visit in primary care: 10/11/2023 Please advise. Thank you. Danielle Patel MA. [facility]05-13-2024 Miscellaneous Notes* Telephone Encounter - Danielle Patel MA - 07/02/2023 9:05 AM EDT Patient has been identified by name and date of : Yes Patient phones for refill(s): Requested Prescriptions Pending Prescriptions Disp Refills gabapentin (NEURONTIN) 300 mg capsule 180 capsule 3 Sig: Take 1 capsule by mouth two times a day. Date of last office visit in primary care: 06/05/2023 Date of next office visit in primary care: 10/11/2023 Please advise. Thank you. Danielle Patel MA. documented in this encounterKnox [facility] Hospital04-23-2024 Telephone encounter Note * Telephone Encounter - Brittany Cedillo LPN - 06/12/2023 2:59 PM EDT Pt has not reviewed the my chart message. Message left to her home number to either review the my chart message or call back to spoke to a nurse. [facility]04-23-2024 Miscellaneous Notes* Telephone Encounter - Brittany Cedillo LPN - 06/12/2023 2:59 PM EDT Pt has not reviewed the my chart message. Message left to her home number to either review the my chart message or call back to spoke to a nurse. * Telephone Encounter - Brittany Cedillo LPN - 06/08/2023 10:05 AM EDT Pt notified via my chart. * Telephone Encounter - Claudine Durán MD - 06/08/2023 12:50 AM EDT Usually ID fills this. Filled to avoid delay in her getting medication filled. See when faustin follow up with ID or whoever has been managing histoplasmosis infection The following approved medication requests have been transmitted electronically. Requested Prescriptions Pending Prescriptions Disp Refills itraconazole (SPORANOX) 10 mg/mL solution 1200 mL 0 Sig: Take 20 mL by mouth two times a day. Claudine Durán MD * Telephone Encounter - Maritza Preston LPN - 06/07/2023 3:41 PM EDT Patient has been identified by name and date of : Yes Patient phones for refill(s): Requested Prescriptions Pending Prescriptions Disp Refills itraconazole (SPORANOX) 10 mg/mL solution 1200 mL 0 Sig: Take 20 mL by mouth two times a day. Date of last office visit in primary care: 06/05/2023 Date of next office visit in primary care: 10/11/2023 Please advise. Thank you. Maritza Preston LPN. Yes * Telephone Encounter - Dionne Nunez - 06/07/2023 10:35 AM EDT Patient has been identified by name and date of : Yes Patient phones for refill(s): Requested Prescriptions Pending Prescriptions Disp Refills itraconazole (SPORANOX) 10 mg/mL solution 1200 mL 0 Sig: Take 20 mL by mouth two times a day. Date of last office visit in primary care: Visit date not found Date of next office visit in primary care: Visit date not found Please advise. Thank you. Dionne Nunez. documented in this encounterKn[facility]04-19-2024 Telephone encounter Note * Telephone Encounter - Brittany Cedillo LPN - 06/08/2023 10:05 AM EDT Pt notified via my chart. [facility]04-19-2024 Telephone encounter Note* Telephone Encounter - Claudine Durán MD - 06/08/2023 12:50 AM EDT Usually ID fills this. Filled to avoid delay in her getting medication filled. See when faustin follow up with ID or whoever has been managing histoplasmosis infection The following approved medication requests have been transmitted electronically. Requested Prescriptions Pending Prescriptions Disp Refills itraconazole (SPORANOX) 10 mg/mL solution 1200 mL 0 Sig: Take 20 mL by mouth two times a day. Claudine Durán MD [facility]04-18-2024 Telephone encounter Note* Telephone Encounter - Maritza Preston LPN - 06/07/2023 3:41 PM EDT Patient has been identified by name and date of : Yes Patient phones for refill(s): Requested Prescriptions Pending Prescriptions Disp Refills itraconazole (SPORANOX) 10 mg/mL solution 1200 mL 0 Sig: Take 20 mL by mouth two times a day. Date of last office visit in primary care: 06/05/2023 Date of next office visit in primary care: 10/11/2023 Please advise. Thank you. Maritza Preston LPN. Yes [facility]04-18-2024 Telephone encounter Note* Telephone Encounter - Dionne Nunez - 06/07/2023 10:35 AM EDT Patient has been identified by name and date of : Yes Patient phones for refill(s): Requested Prescriptions Pending Prescriptions Disp Refills itraconazole (SPORANOX) 10 mg/mL solution 1200 mL 0 Sig: Take 20 mL by mouth two times a day. Date of last office visit in primary care: Visit date not found Date of next office visit in primary care: Visit date not found Please advise. Thank you. Dionne Nunez. [facility]04-16-2024 Instructions* Patient Instructions* Claudine Durán MD - 06/05/2023 3:50 PM EDT Consider seeing Dr. Orellana's GI partner for follow up on elevated liver enzymes. documented in this encounterKnox [facility] Hospital04-16-2024 History of Present illness Narrative* Claudine Durán MD - 06/05/2023 3:28 PM EDT This note was created using Retraceter. Subjective Haydee Bustamante is a 78 year old female. Patient presents with: Discharge Skilled Rehab: Discharged from [facility] SUBJECTIVE: Haydee Bustamante is a 78 year old year old lady here today for follow up appointment for review of medical conditions after in [facility] after being in TCU after hospitalization. Did well with PT/OT ST at TCU at [facility] noted for swallowing--no problems with swallowing now. Gastric ulcer--was not aware; also anemia 2/22 Hg 10.1 DVT noted bilateral; pain resolved. Wears compression wrappings. Stocking--helped to have marking for heel COPD and histo--chronic cough no worse than usual. Needed to replace Dulera which replaced Symbicort; needed refill for albuterol. PAST MEDICAL HISTORY Diagnosis Date Anemia Bone marrow involvement with histoplasmosis Bronchiectasis ([facility]) COPD (chronic obstructive pulmonary disease) ([facility]) Disseminated histoplasmosis Colitis, immunosuppression, 01/2018. Diverticulosis of colon (without mention of hemorrhage) Diverticulosis DVT, recurrent, lower extremity, acute ([facility]) 12/10/2014 Esophageal reflux Hiatal hernia 02/25/2018 Hypertension Lung nodule Personal history of unspecified urinary disorder 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 rheumatoid factor ([facility]) 03/07/2015 Dr. Hurley ([facility]) Unspecified hemorrhoids without mention of complication Hemorrhoids Current Outpatient Medications Medication Sig Mucus Clearing Device (QUAKE VIBRATORY PEP) renetta Provide 1 device budesonide-formoterol (SYMBICORT) 160-4.5 mcg/actuation inhaler USE 2 INHALATIONS TWICE A DAY INSTRUCTED gabapentin (NEURONTIN) 300 mg capsule Take 1 capsule by mouth two times a day. warfarin (COUMADIN) 5 mg tablet take 1 AND 1/2 tablets by mouth once daily ON SUNDAY, SUNDAY, SUNDAY, SUNDAY AND SUNDAY and 1 tablet by mouth once daily ON SUNDAY AND SUNDAY warfarin (COUMADIN) 5 mg tablet Take 7.5 mg , Sun,Sun, Sun, Sun; and 5 mg on Sunday and Sunday(Patient taking differently: Take 5 mg by mouth once daily.) FOLIC ACID ORAL Take by mouth. tiotropium bromide (SPIRIVA RESPIMAT) 2.5 mcg/actuation inhaler Inhale 2 Puffs as instructed once daily. Inhale two puffs once daily. naproxen (NAPROSYN) 500 mg tablet Take 1 tablet by mouth twice daily as needed. Take with food fluticasone (FLONASE) 50 mcg/actuation nasal spray Use 1 [place] in each nostril once daily. albuterol HFA (PROAIR HFA) 90 mcg/actuation inhaler Inhale 2 Puffs as instructed every 4 hours as needed. vit A,C,L-Dvip-Zdvqha (OCUVITE PRESERVISION) 2,148 mcg-113 mg-45 mg-17.4mg tab Take 2 tablets by mouth daily with breakfast. potassium chloride ER (KLOR-CON M20) 20 mEq tablet Take 1 tablet by mouth twice daily. leucovorin (LEUCOVORIN) 15 mg tablet Take [...] THERAPEUTIC MULTIVITAMIN TAB Take one(1) tablet daily. itraconazole (SPORANOX) 10 mg/mL solution Take 20 mL by mouth two times a day. (Patient not taking:Reported on 06/05/2023) loperamide (IMODIUM) 2 mg cap(s) Take 1 capsule by mouth three times a day as needed for diarrhea for up to [address] (PROTONIX) 40 mg tablet Take 1 tablet by mouth once daily. (Patient not taking: Reported on 06/05/2023) Current Facility-Administered Medications Medication Dose Route Frequency perflutren lipid microspheres 1.3 mL in NaCl (PF) 0.9% 10 mL injection (DEFINITY) INTRAVENOUS DIRECTED PRN sodium chloride 0.9 % (flush) 10 mL (BD POSIFLUSH) 10 mL INTRAVENOUS DIRECTED PRN Review of Systems Objective BP 122/74 Pulse 93 Temp 36.8 C (98.2 F) Resp 18 Wt 56.1 kg (123 lb 11.2 oz) SpO2 96% BMI 21.91 kg/m Physical Exam Constitutional: Appearance: Normal appearance. HENT: Head: Normocephalic. Eyes: Conjunctiva/sclera: Conjunctivae normal. Cardiovascular: Rate and Rhythm: Normal rate and regular rhythm. Heart sounds: Murmur heard. Systolic murmur is present with a grade of 3/6. Pulmonary: Effort: Pulmonary effort is normal. Breath sounds: Normal breath sounds. Musculoskeletal: Right lower le+ Pitting Edema present. Left lower le+ Pitting Edema present. Skin: General: Skin is warm and dry. Neurological: General: No focal deficit present. Mental Status: She is alert and oriented to person, place, and time. Psychiatric: Mood and Affect: Mood normal. Behavior: Behavior normal. Thought Content: Thought content normal. Judgment: Judgment normal. Assessment and Plan Encounter Diagnosis ICD-10-CM 1. Anemia, unspecified type D64.9 COMPLETE BLOOD COUNT Patient states was not aware how anemic she had been during hospitalization--thought was an error in her record.Reviewed history and labs with her.Labs ordered 2. Elevated LFTs R79.89 COMPREHENSIVE METABOLIC PANEL Follow up on labs 3. COPD without exacerbation (HCC) J44.9 Stable now. Continue med management 4. Essential hypertension I10 COMPREHENSIVE METABOLIC PANEL COMPLETE BLOOD COUNT Good control. Continue management 5. Cough due to bronchospasm J98.01 albuterol HFA (PROAIR HFA) 90 mcg/actuation inhaler ATB given to take if develops s/s bacterial infection 6. Chronic anticoagulation Z79.01 COMPLETE BLOOD COUNT Continue med management 7. Encounter for long-term current use of medication Z79.899 COMPREHENSIVE METABOLIC PANEL COMPLETE BLOOD COUNT 8. Gastric ulcer with hemorrhage, unspecified chronicity K25.4 Anemia as noted above.Clinically no signs of recurrence. Needs to be on anticoagulation given risk of VTE. Above issues addressed with patient. Patient involved in shared decision making for management of medical issues. History and medications reviewed. Epic updated as needed Refills and/or prescriptions taken care of and meds adjusted as indicated after reviewed history, exam and labs. Health Maintenance reviewed. Updated record and/or ordered tests as recorded. Encouraged on efforts at healthy diet and regular exercise and adequate sleep. I spent a total of 43 minutes on the date of the service which included [id number] patient care, completing clinical documentation, obtaining and/or reviewing separately obtained history, performing a medically appropriate examination, counseling and educating the patient/family/caregiver, ordering medications, tests, or procedures, independently interpreting results (not separately reported), and communicating results to the patient/family/caregiver. Claudine Durán MD documented in this encounterKnox [facility] Hospital03-11-2024 Miscellaneous Notes* Telephone Encounter - Brittany Cedillo LPN - 04/30/2023 11:09 AM EDT Rec'd rec'd from [facility] pt to be d/c from [facility] to [facility] private pay for therapy documented in this encounterKnox [facility] Hospital03-08-2024 Discharge summary Author Edinson Albaro [facility] April 27, 2023 1:24pm Note Date/Time April 27, 2023 1:24 pm [facility] Medical Records Department [address] [place] [address] Transfer to [facility] MR#: [id number] Acct: [id number] Name: HAYDEE BUSTAMANTE Rep #:[id number] : 1945 77 From: Edinson Irvin MD PCP: Dr. Claudine Durán MD Status:AD M IN Certification of patient admission REQUIRED AT TIME OF ADMISSION. I CERTIFY THAT POST-HOSPITAL ECF SERVICES ARE REQUIRED TO BE GIVEN ON AN IN-PATIENT BASIS BECAUSE OF THE ABOVE NAMED PATIENT'S NEED FOR SKILLED NURSING CARE ON A CONTINUING BASIS FOR THE CONDITION(S) FOR WHICH HE/SHE WAS RECEIVINGIN-PATIENT HOSPITAL SERVICES PRIOR TO HIS/HER TRANSFER TO THE [facility]. 04/27/23 1324<Electronically signed by Edinson Irvin MD> Diet Diet Order/Speech Therapy: 04/05/23 14:07 Diet: Regular - General Type of Dietary Supplement:: Sharad L&D Is pt able to select menu?: Yes Diet Comments: Distant Supervision, SMALL SIPS, Cough &re-swallow w/ sips; see tally notes Routine Orders/Code Status Routine Lab Work: INR (3 times per week until INR therapeutic.) Code Status: Full Code Wound(s) LT ARM: Wound Type: Abrasion MACKENZIE LEGS: Wound Type: Redness/healing blisters Dressing Change: Dry Sterile Dressing MACKENZIE FEET: Wound Type: Redness/healing blisters Dressing Change: Dry Sterile Dressing MACKENZIE BUTTUCKS/COCCYX: Wound Type: Pressure Injury Dressing Change: Calmoseptine LT FOOT/AREA 1: Wound Type: Blistered area Dressing Change: ADAPTIC,ABD,GAZE LT FOOT/AREA 2: Wound Type: Blistered area Dressing Change: ADAPTIC,ABD,GAZE RT FOOT: Wound Type: Healing blisters Dressing Change: ADAPTIC,ABD,GAZE OUTTER LOWER LEG: Wound Type: Healing blister Dressing Change: ADAPTIC,ABD,GAZE INNER LOWER LEG: Wound Type: Healing blister Dressing Change: ADAPTIC,ABD,GAZE RT ANKLE: Wound Type: Blistered area Dressing Change: Dry Sterile Dressing right soto: Wound Type: Scabbed area Dressing Change: dry dressing right dorsal foot: Wound Type: scabbed over blister Dressing Change: Adaptic right lateral heel: Wound Type: Pressure Injury Dressing Change: dry well padded dressing left dorsal foot: Wound Type: cluster of blisters Dressing Change: Adaptic Therapies Weight Bearing: Weight bearing as tolerated Extremity Affected:: Bilateral Lower Physical Therapy: Eval and Treat Occupational Therapy: Eval and Treat Problem/Diagnosis (1) Debility: Status: Acute Code(s): R53.81 - Other malaise (2) Cellulitis of right lower extremity: Status: Acute Code(s): L03.115 - Cellulitis of right lower limb (3) Failure to thrive: Status: Acute (4) Acute anemia: Status: Acute Code(s): D64.9 - Anemia, unspecified (5) Gastric ulcer: Status: Acute Code(s): K25.9 - Gastric ulcer, unspecified as acute or chronic, without hemorrhage or perforation (6) Duodenitis: Status: Acute Code(s): K29.80 - Duodenitis without bleeding (7) Thrombocytopenia: Status: Acute Code(s): D69.6 - Thrombocytopenia, unspecified (8) Edema: Status: Acute Code(s): R60.9 - Edema, unspecified (9) COPD (chronic obstructive pulmonary disease): Status: Chronic Code(s): J44.9 - Chronic obstructive pulmonary disease, unspecified (10) Histoplasmosis: Status: Acute Code(s): B39.9 - Histoplasmosis, unspecified (11) History of blood clots: Status: Acute Code(s): Z86.718 - Personal history of other venous thrombosis and embolism (12) Rheumatoid arthritis: Status: Acute Code(s): M06.9 - Rheumatoid arthritis, unspecified Plan 77 year old female with below past medical history hospitalized for right lower extremity cellulitis, failure to thrive, complicated by acute anemia 2/2 gastriculcers, duodenitis, thrombocytopenia, admitted to TCU with debility, here for rehabilitation, strengthening, prior to discharge home alone. * Debility - PT/OT. * Pain - Tylenol 1000mg q6 prn pain (1-3), Oxycodone 5mg q4 prn pain (4-10). * Bowel - senna/colace 1 tablet bid, Magnesium citrate 300ml daily prn. * Adult immunization - Administer pneumonia vaccine, covid vaccine, flu vaccine as appropriate. * DVT prophylaxis - Hold, thrombocytopenia. * COPD - Budesonide 0.5mg q12, Duoneb 3ml q6wa, Albuterol 2.5mg q2 prn. * Vitamin D deficiency - D3 25mcg daily. * Allergic rhinitis - Flonase 1 spray nasal daily. * Neuropathic pain - Gabapentin 300mg q12h. * Histoplasmosis - Itraconazole 200mg bidcm. * Skin irritation - Calmoseptine topical bid. * Macular degeneration - Healthy Eyes 2 caps bidcm. * Nutrition - MVI 1 daily. * Gastric ulcer/duodenitis - Pantoprazole 40mg bid. * History of blood clots - restart coumadin when platelets > 50,000. Allergies/Procedures Done in Hospital Allergies Penicillins Allergy (Severe, Verified 03/28/23 16:32) Anaphylaxis Procedures: None Type of Care/Length of Stay Estimated LOS: Convalescent Care Less Than 30 days Type of Care Needed: Intermediate Rehab Potential: Good Prognosis: Good Additional Orders/Day of Discharge Additional Orders: part B therapies Day of Discharge: 04/30/23 Dietary and Speech Recommendations Dietitian Recommendations/Changes: Will continue liberal regular diet Continue to provide sharad bid w/ lunch and dinner Continue to provide black, decaf tea and low fat milk w/ all meals Continue to cut food into small bite size pieces at meals d/t easy fatigue when eating Encourage res to eat snacks between meals - no additional wt loss desired Continue to encourage res to consider ONS for increased nutrition if consume to help prevent additional wt loss Follow Up Care Please follow up with your Primary Care Physician in: Pasha Mcmillan MD Discharge Plan Admission Admit Date/Time: 04/05/23 13:33 Primary Reason for Your Visit: Debility. Attending Provider: Edinson Irvin Chi Primary Care Provider: Claudine Durán Instructions Additional Instructions / Restrictions: Discharge 04/30/2023 to [facility], private pay, part B therapies. Discharge Orders/Prescriptions Prescriptions: New citalopram 10 mg Tablet 10 mg PO DAILY Qty: 0 0RF dextromethorphan-guaifenesin 10-100 mg/5 mL Syrup 10 ml PO Q6H PRN PRN (Reason: COUGH) Qty: 0 0RF acetaminophen 500 mg Tablet 1,000 mg PO Q6H PRN PRN (Reason: Pain Score 1-10) Qty: 0 0RF warfarin [Jantoven] 6 mg Tablet 6 mg PO DINNER Qty: 0 0RF potassium chloride 20 mEq Tablet,Er Particles/Crystals 20 meq PO BIDCM Qty: 0 0RF warfarin [Jantoven] 1 mg Tablet 1 mg PO DINNER Qty: 0 0RF menthol-zinc oxide [Calmoseptine] 0.44-20.6 % Ointment 1 applic topical BID Qty: 0 0RF Protocol: *Topical Application Instructions APPLICATION INSTRUCTIONS: mackenzie buttucks and coccyx Continued fluticasone propionate 50 mcg/actuation spray,suspension 1 spray INTRANASAL DAILY PreserVision AREDS 2,148 mcg-113 mg-45 mg-17.4mg tablet 2 tab PO BID Rx Instructions: administer with AM and PM meals multivitamin [Daily Multi-Vitamin] Tablet 1 tab PO DAILY ipratropium-albuterol 0.5 mg-3 mg(2.5 mg base)/3 mL Solution For Nebulization 3 ml inhalation Q6HWA.RT Qty: 0 0RF albuterol sulfate 2.5 mg /3 mL (0.083 %) Solution For Nebulization 2.5 mg inhalation Q2H PRN PRN (Reason: SOB/Wheezing) Qty: 0 0RF gabapentin 300 mg Capsule 300 mg PO Q12 Qty: 0 0RF budesonide 0.5 mg/2 mL Suspension For Nebulization 0.5 mg inhalation Q12H.RT Qty: 0 0RF itraconazole 100 mg Capsule 200 mg PO BIDCM Qty: 0 0RF pantoprazole 40 mg Tablet,Delayed Release (Dr/Ec) 40 mg PO BID Qty: 0 0RF cholecalciferol (vitamin D3) 25 mcg (1,000 unit) capsule 25 mcg PO DAILY Discontinued albuterol sulfate 90 mcg/actuation HFA aerosol inhaler 2 puff INHALATION Q4H PRN (Reason: shortness of breath or wheezing) budesonide-formoterol [Symbicort] 160-4.5 mcg/actuation HFA aerosol inhaler 2 puff INHALATION Q12H Spiriva Respimat 2.5 mcg/actuation mist 2 puff INHALATION Q24H acetaminophen 325 mg Tablet 650 mg PO Q6H PRN PRN (Reason: Pain 1-10 Or Fever >100.7) Qty: 0 0RF fluticasone propionate 50 mcg/actuation [place],Suspension 1 spray NASAL DAILY Qty: 0 0RF oxycodone 5 mg Tablet 5 mg PO Q4H PRN PRN (Reason: Pain Score 4-10) 2 Days Qty: 6 0RF sennosides-docusate sodium [Stool Softener-Stimulant Laxat] 8.6-50 mg Tablet 2 tab PO BID PRN PRN (Reason: Constipation) Qty: 0 0RF itraconazole 10 mg/mL solution 100 mg PO Q8H Rx Instructions: administer on an empty stomach Ocutabs Tablet 2 tab PO DAILY Referrals / Follow Up: Claudine Durán MD [Primary Care Provider] - Disposition Disposition (needs filled in before D/C Order can be placed): NonSkilled NH/Intermed Care 04/27/23 1324 <Electronically signed by Edinson Irvin MD> Cosigner Signature (if applicable): CC: Dr. Claudine Durán MD ~ [facility] Work Phone: [phone] [facility] April 27, 2023 1:23pm Note Date/Time April 27, 2023 1:17 pm [facility] System Medical Records Department [address] [place] [id number] Discharge Summary 04/27/23 1316 MR#: [id number] Acct: [id number] Name: HAYDEE BUSTAMANTE Rep #:[id number] : 1945 77 From: Edinson Irvin MD PCP: Dr. Claudine Durán MD Status:AD M IN Location: [facility] TCU03-1 Providers Date of Admission: 04/05/23 Primary Care Physician: Dr. 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 Routine Comment: Reason for Consult:: bilateral lowers legs/feet Reason For Visit: LOWER EXTREMITY CELLULITIS Diagnosis Discharge Diagnosis (1) Debility: Status: Acute Code(s): R53.81 - Other malaise (2) Cellulitis of right lower extremity: Status: Acute Code(s): L03.115 - Cellulitis of right lower limb (3) Failure to thrive: Status: Acute (4) Acute anemia: Status: Acute Code(s): D64.9 - Anemia, unspecified (5) Gastric ulcer: Status: Acute Code(s): K25.9 - Gastric ulcer, unspecified as acute or chronic, without hemorrhage or perforation (6) Duodenitis: Status: Acute Code(s): K29.80 - Duodenitis without bleeding (7) Thrombocytopenia: Status: Acute Code(s): D69.6 - Thrombocytopenia, unspecified (8) Edema: Status: Acute Code(s): R60.9 - Edema, unspecified (9) COPD (chronic obstructive pulmonary disease): Status: Chronic Code(s): J44.9 - Chronic obstructive pulmonary disease, unspecified (10) Histoplasmosis: Status: Acute Code(s): B39.9 - Histoplasmosis, unspecified (11) History of blood clots: Status: Acute Code(s): Z86.718 - Personal history of other venous thrombosis and embolism (12) Rheumatoid arthritis: Status: Acute Code(s): M06.9 - Rheumatoid arthritis, unspecified Plan 77 year old female with below past medical history hospitalized for right lower extremity cellulitis, failure to thrive, complicated by acute anemia 2/2 gastriculcers, duodenitis, thrombocytopenia, admitted to TCU with debility, here for rehabilitation, strengthening, prior to discharge home alone. * Debility - PT/OT. * Pain - Tylenol 1000mg q6 prn pain (1-3), Oxycodone 5mg q4 prn pain (4-10). * Bowel - senna/colace 1 tablet bid, Magnesium citrate 300ml daily prn. * Adult immunization - Administer pneumonia vaccine, covid vaccine, flu vaccine as appropriate. * DVT prophylaxis - Hold, thrombocytopenia. * COPD - Budesonide 0.5mg q12, Duoneb 3ml q6wa, Albuterol 2.5mg q2 prn. * Vitamin D deficiency - D3 25mcg daily. * Allergic rhinitis - Flonase 1 spray nasal daily. * Neuropathic pain - Gabapentin 300mg q12h. * Histoplasmosis - Itraconazole 200mg bidcm. * Skin irritation - Calmoseptine topical bid. * Macular degeneration - Healthy Eyes 2 caps bidcm. * Nutrition - MVI 1 daily. * Gastric ulcer/duodenitis - Pantoprazole 40mg bid. * History of blood clots - restart coumadin when platelets > 50,000. Medications at Discharge Home Medications fluticasone propionate 50 mcg/actuation nasal spray,suspension 1 spray intranasal DAILY allergies 03/19/23 multivitamin (Daily Multi-Vitamin tablet) 1 tab PO DAILY supplement 03/19/23 vitamins A,C,T-hfqc-naysss 2,148 mcg-113 mg-45 mg-17.4 mg tablet (PreserVision AREDS) 2 tab PO BID eye health 03/19/23 cholecalciferol (vitamin D3) 25 mcg (1,000 unit) capsule 25 mcg PO DAILY health maintenance 03/26/23 albuterol sulfate 2.5 mg/3 mL (0.083 %) solution for nebulization 2.5 mg (3 mL) inhalation Q2H PRN PRN SOB/Wheezing #0 mL 04/05/23 budesonide 0.5 mg/2 mL suspension for nebulization 0.5 mg (2 mL) inhalation Q12H.RT breathing #0 mL 04/05/23 gabapentin 300 mg capsule 300 mg PO Q12 nerve pain #0 caps 04/05/23 ipratropium 0.5 mg-albuterol 3 mg (2.5 mg base)/3 mL nebulization soln 3 ml inhalation Q6HWA.RT breathing #0 mL 04/05/23 itraconazole 100 mg capsule 200 mg (2 x 100 mg) PO BIDCM histoplasmosis #0 caps 04/05/23 pantoprazole 40 mg tablet,delayed release 40 mg PO BID GERD #0 tabs 04/05/23 acetaminophen 500 mg tablet 1,000 mg (2 x 500 mg) PO Q6H PRN PRN Pain Score 1- 10#0 tabs 04/27/23 citalopram 10 mg tablet 10 mg PO DAILY #0 tabs 04/27/23 dextromethorphan-guaifenesin 10 mg-100 mg/5 mL oral syrup 10 ml PO Q6H PRN PRN COUGH #0 mL 04/27/23 menthol 0.44 %-zinc oxide 20.6 % topical ointment (Calmoseptine) 1 applic topical BID #0 grams 04/27/23 potassium chloride 20 mEq tablet,extended release(part/cryst) 20 meq PO BIDCM #0tabs 04/27/23 warfarin 1 mg tablet (Jantoven) 1 mg PO DINNER #0 tabs 04/27/23 warfarin 6 mg tablet (Jantoven) 6 mg PO DINNER #0 tabs 04/27/23 Hospital Course Operations None Procedures None Summary of Care Provided Minutes Spent on Discharge: 35 Hospital Course: 77 year old female with below past medical history hospitalized for right lower extremity cellulitis, failure to thrive, complicated by acute anemia 2/2 gastriculcers, duodenitis, thrombocytopenia, admitted to TCU with debility, here for rehabilitation, strengthening, prior to discharge home alone. 04/11/2023 Doppler right lower extremity showed acute DVT right lower extremity. Discharge 04/30/2023 to [facility] private pay, part B therapies. Physical Exam Const alert General Appearance: cooperative HEENT normocephalic Eyes PERRL and EOMs intact bilaterally Neck supple, no JVD and no carotid bruits Resp normal respiratory effort, normal air movement and clear to auscultation bilaterally Cardio regular rate and regular rhythm GI normal to inspection, nondistended, normoactive bowel sounds, non-tender and non-distended Extremity normal capillary refill General Extremity: Negative for edema Skin no rashes or lesions noted General Skin Exam: no breakdown Psych affect normal Appearance: appropriate Weight / BMI Weight Weight: 54.34 kg Body Mass Index (BMI) 21.2 ABG / Lab / Microbiology Data 04/12/23 05:46 04/27/23 05:08 Laboratory: Laboratory Results - last 24 hr 04/27/23 05:08: Sodium 136, Potassium 3.6, Chloride 101, Carbon Dioxide 28.0, Anion Gap 7, BUN 28 H, Creatinine 0.51 L, Estim Creat Clear Calc 50.26, Est GFR (MDRD) Af Amer 151, Est GFR (MDRD) Non-Af 125, BUN/Creatinine Ratio 54.9 H, Glucose 82, Calcium 8.4 L Microbiology: Microbiology 04/13/23 11:05 Mucosa - Nasopharyngeal Respiratory Panel (PCR) - Final 04/13/23 10:37 Nasal Secretion SARS-CoV-2 Antigen (Rapid) - Final 04/06/23 09:00 Urine, Catheterized Urine Culture - Final Culture exhibits no growth. D/C Instructions Discharge Diet: No restrictions Discharge Activity: Return to Normal Activity, May Shower and Use Walker Weight Bearing Status: Weight bearing as tolerated Call your doctor if you observe: Fever of 101 or Higher, Inability to urinate, Inability to have a bowel movement, Shortness of breath, Dizziness, Fainting spells, Swelling in the ankles, Chest pain and Uncontrolled pain Additional Instructions: Discharge 04/30/2023 to [facility], private pay, part B therapies. Meaningful Use Info Meaningful Use Diagnoses (Choose all that apply): None applicable Discharge Plan Admission Admit Date/Time: 04/05/23 13:33 Primary Reason for Your Visit: Debility. Attending Provider: Edinson Irvin Chi Primary Care Provider: Claudine Durán Instructions Additional Instructions / Restrictions: Discharge 04/30/2023 to [facility], [facility], part B therapies. Discharge Orders/Prescriptions Prescriptions: New citalopram 10 mg Tablet 10 mg PO DAILY Qty: 0 0RF dextromethorphan-guaifenesin 10-100 mg/5 mL Syrup 10 ml PO Q6H PRN PRN (Reason: COUGH) Qty: 0 0RF acetaminophen 500 mg Tablet 1,000 mg PO Q6H PRN PRN (Reason: Pain Score 1-10) Qty: 0 0RF warfarin [Jantoven] 6 mg Tablet 6 mg PO DINNER Qty: 0 0RF potassium chloride 20 mEq Tablet,Er Particles/Crystals 20 meq PO BIDCM Qty: 0 0RF warfarin [Jantoven] 1 mg Tablet 1 mg PO DINNER Qty: 0 0RF menthol-zinc oxide [Calmoseptine] 0.44-20.6 % Ointment 1 applic topical BID Qty: 0 0RF Protocol: *Topical Application Instructions APPLICATION INSTRUCTIONS: mackenzie buttucks and coccyx Continued fluticasone propionate 50 mcg/actuation spray,suspension 1 spray INTRANASAL DAILY PreserVision AREDS 2,148 mcg-113 mg-45 mg-17.4mg tablet 2 tab PO BID Rx Instructions: administer with AM and PM meals multivitamin [Daily Multi-Vitamin] Tablet 1 tab PO DAILY ipratropium-albuterol 0.5 mg-3 mg(2.5 mg base)/3 mL Solution For Nebulization 3 ml inhalation Q6HWA.RT Qty: 0 0RF albuterol sulfate 2.5 mg /3 mL (0.083 %) Solution For Nebulization 2.5 mg inhalation Q2H PRN PRN (Reason: SOB/Wheezing) Qty: 0 0RF gabapentin 300 mg Capsule 300 mg PO Q12 Qty: 0 0RF budesonide 0.5 mg/2 mL Suspension For Nebulization 0.5 mg inhalation Q12H.RT Qty: 0 0RF itraconazole 100 mg Capsule 200 mg PO BIDCM Qty: 0 0RF pantoprazole 40 mg Tablet,Delayed Release (Dr/Ec) 40 mg PO BID Qty: 0 0RF cholecalciferol (vitamin D3) 25 mcg (1,000 unit) capsule 25 mcg PO DAILY Discontinued albuterol sulfate 90 mcg/actuation HFA aerosol inhaler 2 puff INHALATION Q4H PRN (Reason: shortness of breath or wheezing) budesonide-formoterol [Symbicort] 160-4.5 mcg/actuation HFA aerosol inhaler 2 puff INHALATION Q12H Spiriva Respimat 2.5 mcg/actuation mist 2 puff INHALATION Q24H acetaminophen 325 mg Tablet 650 mg PO Q6H PRN PRN (Reason: Pain 1-10 Or Fever >100.7) Qty: 0 0RF fluticasone propionate 50 mcg/actuation [place],Suspension 1 spray NASAL DAILY Qty: 0 0RF oxycodone 5 mg Tablet 5 mg PO Q4H PRN PRN (Reason: Pain Score 4-10) 2 Days Qty: 6 0RF sennosides-docusate sodium [Stool Softener-Stimulant Laxat] 8.6-50 mg Tablet 2 tab PO BID PRN PRN (Reason: Constipation) Qty: 0 0RF itraconazole 10 mg/mL solution 100 mg PO Q8H Rx Instructions: administer on an empty stomach Ocutabs Tablet 2 tab PO DAILY Referrals / Follow Up: Claudine Durán MD [Primary Care Provider] - Disposition Disposition (needs filled in before D/C Order can be placed): NonSkilled NH/Intermed Care 04/27/23 1323 <Electronically signed by Edinson Irvin MD> Cosigner Signature (if applicable): CC: Dr. Claudine Durán MD; Dr. Edinson Irvin MD~ Signed [facility] Work Phone: [phone]) 294-271002-21-2024 History and physical note Author Edinson Albaro [facility] April 11, 2023 11:37am Note Date/Time April 05, 2023 8:06pm [facility] Medical Records Department [address] [place] [address] History & Physical Exam 04/05/231955 MR#: [id number] Acct: [id number] Name: HAYDEE BUSTAMANTE Rep #:[id number] : 1945 77 From: Edinson Irvin MD PCP: Dr. Claudine Durán MD Status:AD IN Location: [place] [address] HPI - General General Date of Admission: 04/05/23 Date of Service: 04/05/23 Chief Complaint: Here for rehabilitation. HPI Narrative 03/31/2023 HAYDEE BUSTAMANTE, is a 77 Female who presents to [facility] ED with edema. FTT, bilateral lower extremity edema, right lower extremity redness. Unable to care for self at home, fell, could not get up. On floor for hours. Worsening right leg pain. WBC 19.4, Hemoglobin 8.3, INR 1.3, K 3.2, BNP okay, CK okay. Chest X-ray negative, X-ray right tibia/fibula negative. Clindamycin IV for right lower extremity cellulitis. 03/31/2023 Admit to [facility]. Levaquin, Doppler right lower extremity for cellulitis right lower extremity. PT/OT Debility. 03/31/2023 Echo EF 70%. LA severely dilated. Severe aortic stenosis. 04/01/2023 Bilateral lower extremity swelling improved. Hemoglobin 6.5, transfuse 2 units PRBC. Lovenox, coumadin for DVT/PE. DANIELLA wrap bilateral lower extremity edema. 04/02/2023 Dr. Orellana performed EGD oozing gastric ulcers injected, non-bleeding gastric ulcers biopsied, bile duodenitis. 04/02/2023 Levaquin IV right lower extremity cellulitis. Monitor H&H for GI bleed. 04/03/2023 Discontinue antibiotics for right lower extremity cellulitis. Pre-CERT for TCU. 04/04/2023 Dr. Abel recommended platelet transfusion if < 10,000. Hold anticoagulation until platelet > 50,000. 04/04/2023 Monitor platelets. 04/05/2023 Admit to TCU with debility, here for rehabiliation, strengthening, prior to discharge home alone. [facility] Medical History (Updated 04/05/23 @ 20:[address] Edinson Irvin MD) Colitis COPD (chronic obstructive pulmonary disease) COVID-19 DVT (deep venous thrombosis) Former smoker Histoplasmosis Pulmonary embolism Rheumatoid arthritis Thrombocytopenia Home Medications albuterol sulfate 90 mcg/actuation aerosol inhaler 2 puff inhalation Q4H PRN shortness of breath or wheezing 03/19/23 [History Last Taken Unknown] budesonide-formoterol HFA 160 mcg-4.5 mcg/actuation aerosol inhaler (Symbicort) 2 puff inhalation Q12H 03/19/23 [History Last Taken Unknown] fluticasone propionate 50 mcg/actuation nasal spray,suspension 1 spray intranasal DAILY allergies 03/19/23 [History Last Taken 04/05/23 08:50] multivitamin (Daily Multi-Vitamin tablet) 1 tab PO DAILY supplement 03/19/23 [History Last Taken Unknown] tiotropium bromide 2.5 mcg/actuation mist for inhalation (Spiriva Respimat) 2 puff inhalation Q24H 03/19/23 [History Last Taken Unknown] vitamins A,C,P-klqs-uwslpi 2,148 mcg-113 mg-45 mg-17.4 mg tablet (PreserVision AREDS) 2 tab PO BID eye health 03/19/23 [History Last Taken Unknown] cholecalciferol (vitamin D3) 25 mcg (1,000 unit) capsule 25 mcg PO DAILY health maintenance 03/26/23 [History Last Taken Unknown] itraconazole 10 mg/mL oral solution 100 mg PO Q8H unknown 03/26/23 [History Last Taken Unknown] vitamin A-vitamin C-vit E-min tablet (Ocutabs tablet) 2 tab PO DAILY eye health 03/26/23 [History Last Taken Unknown] acetaminophen 325 mg tablet 650 mg (2 x 325 mg) PO Q6H PRN PRN Pain 1-10 Or Fever >100.7 #0 tabs 04/05/23 [Rx Last Taken 04/05/23 08:55] albuterol sulfate 2.5 mg/3 mL (0.083 %) solution for nebulization 2.5 mg (3 mL) inhalation Q2H PRN PRN SOB/Wheezing #0 mL 04/05/23 [Rx Last Taken Unknown] budesonide 0.5 mg/2 mL suspension for nebulization 0.5 mg (2 mL) inhalation Q12H.RT breathing #0 mL 04/05/23 [Rx Last Taken 04/05/23 07:00] fluticasone propionate 50 mcg/actuation nasal spray,suspension 1 spray NASAL DAILY #0 grams 04/05/23 [Rx Last Taken Unknown] gabapentin 300 mg capsule 300 mg PO Q12 nerve pain #0 caps 04/05/23 [Rx Last Taken 04/05/23 09:00] ipratropium 0.5 mg-albuterol 3 mg (2.5 mg base)/3 mL nebulization soln 3 ml inhalation Q6HWA.RT breathing #0 mL 04/05/23 [Rx Last Taken 04/05/23 07:00] itraconazole 100 mg capsule 200 mg (2 x 100 mg) PO BIDCM histoplasmosis #0 caps 04/05/23 [Rx Last Taken 04/05/23 09:00] oxycodone 5 mg tablet 5 mg PO Q4H PRN PRN Pain Score 4-10 2 days #6 tabs 04/05/23 [Rx Last Taken 04/01/23 21:00] pantoprazole 40 mg tablet,delayed release 40 mg PO BID GERD #0 tabs 04/05/23 [Rx Last Taken 04/05/23 11:45] sennosides 8.6 mg-docusate sodium 50 mg tablet (Stool Softener-Stimulant Laxative) 2 tab PO BID PRN PRN Constipation #0 tabs 04/05/23 [Rx Last Taken Unknown] Allergy/AdvReac Type Severity Reaction Status Date / Time Penicillins Allergy Severe Anaphylaxis Verified 03/28/23 16:32 Surgical History History of embolic filter insertion Hx of foot surgery Social History (Updated 04/05/23 @ 20:[address] Edinson Irvin MD) household members: none Smoking Status: Former smoker alcohol intake: never substance use type: does not use ROS Constitutional Constitutional: Denies chills, fever(s) or weight gain ENT HEENT: Denies headache(s), nasal congestion or nasal discharge Cardiovascular Cardiovascular: Denies chest pain or palpitations Respiratory/Chest Respiratory/Chest: Denies cough, excessive phlegm production or shortness of breath with exertion Gastrointestinal Gastrointestinal: Denies abdominal pain, nausea or vomiting Genitourinary Genitourinary: Denies dysuria Musculoskeletal Musculoskeletal: Denies joint pain or joint swelling Integumentary Integumentary: Denies rash or wounds Neurologic Neurologic: Denies focal weakness, numbness or tingling Psychiatric Psychiatric: Denies anxiety, auditory hallucinations, depression, homicidal ideation or suicidal ideation Vital Signs Vital Signs Vital Signs: 04/05/23 13:44 04/05/23 13:42 Temperature 98.2 F Temperature Source Temporal Pulse Rate 92 76 Pulse Rhythm Regular Pulse Strength Normal (2+) Respiratory Rate 16 18 Respiratory Effort Normal Respiratory Depth Normal Respiratory Pattern Normal Blood Pressure 137/77 H Blood Pressure Mean 97 Blood Pressure Source Monitor Blood Pressure Position Sitting Blood Pressure Location Right Arm Pulse Ox 97 96 Oxygen Delivery Method Room Air Room Air Weight Weight: 57.878 kg Body Mass Index (BMI) 22.6 Physical Exam Const alert General Appearance: cooperative HEENT normocephalic Eyes PERRL and EOMs intact bilaterally Neck supple, no JVD and no carotid bruits Resp normal respiratory effort, normal air movement and clear to auscultation bilaterally Cardio regular rate and regular rhythm GI normal to inspection, nondistended, normoactive bowel sounds, non-tender and non-distended Extremity normal capillary refill Extremity Narrative: Bilateral lower extremity DANIELLA wrap. General Extremity: Negative for edema Skin no rashes or lesions noted General Skin Exam: no breakdown Psych affect normal Appearance: appropriate Assessment & Plan Assessment/Plan (1) Debility: (2) Cellulitis of right lower extremity: (3) Failure to thrive: (4) Acute anemia: (5) Gastric ulcer: (6) Duodenitis: (7) Thrombocytopenia: (8) Edema: (9) COPD (chronic obstructive pulmonary disease): (10) Histoplasmosis: (11) History of blood clots: (12) Rheumatoid arthritis: PLAN: Plan 77 year old female with below past medical history hospitalized for right lower extremity cellulitis, failure to thrive, complicated by acute anemia 2/2 gastriculcers, duodenitis, thrombocytopenia, admitted to TCU with debility, here for rehabilitation, strengthening, prior to discharge home alone. * Debility - PT/OT. * Pain - Tylenol 1000mg q6 prn pain (1-3), Oxycodone 5mg q4 prn pain (4-10). * Bowel - senna/colace 1 tablet bid, Magnesium citrate 300ml daily prn. * Adult immunization - Administer pneumonia vaccine, covid vaccine, flu vaccine as appropriate. * DVT prophylaxis - Hold, thrombocytopenia. * COPD - Budesonide 0.5mg q12, Duoneb 3ml q6wa, Albuterol 2.5mg q2 prn. * Vitamin D deficiency - D3 25mcg daily. * Allergic rhinitis - Flonase 1 spray nasal daily. * Neuropathic pain - Gabapentin 300mg q12h. * Histoplasmosis - Itraconazole 200mg bidcm. * Skin irritation - Calmoseptine topical bid. * Macular degeneration - Healthy Eyes 2 caps bidcm. * Nutrition - MVI 1 daily. * Gastric ulcer/duodenitis - Pantoprazole 40mg bid. * History of blood clots - restart coumadin when platelets > 50,000. 04/05/232013 <Electronically signed by Edinson Irvin MD> Cosigner Signature (if applicable): CC: Dr. Claudine Durán MD; Dr. Edinson Irvin MD~ Signed ADDENDUM by Dr. Edinson Irvin MD on 04/10/23 at 0744 Addendum RLE cellulitis - Doppler ultrasound right lower extremity, Rx Doxycycline 100mg bid x 10 days. 04/10/23 0744<Electronically signed by Edinson Irvin MD> Cosigner Signature (if applicable): cc: Dr. Claudine Durán MD; Dr. Edinson Irvin MD ~* Signed ADDENDUM by Dr. Edinson Irvin MD on 04/10/23 at 1725 Addendum Anxiety - Rx Lorazepam 0.5mg po q4h prn. 04/10/23 172<Electronically signed by Edinson Irvin MD> Cosigner Signature (if applicable): cc: Dr. Claudine Durán MD; Dr. Edinson Irvin MD ~* Signed ADDENDUM by Dr. Edinson Irvin MD on 04/11/23 at 1137 Addendum Anxiety - Stop Lorazepam, try Celexa 10mg daily, interaction with coumadin noted. 04/11/23 1137<Electronically signed by Edinson Irvin MD> Cosigner Signature (if applicable): cc: Dr. Claudine Durán MD; Dr. Edinson Irvin MD ~* Signed [facility] Work Phone: 1(204) 523-282902-19-2024 Procedure [facility] 04-06-2023 Progress note Author Amparo Marina [facility] April 06, 2023 3:02pm Note Date/Time April 06, 2023 2:39pm [facility] Medical Records Department [address] [place] [id number] Progress Note - Pharmacy 04/06/23 1438 MR#: [id number] Acct: [id number] Name: HAYDEE BUSTAMANTE Rep #:[id number] : 1945 77 From: Amparo Marina PCP: Dr. Claudine Duárn MD Status:AD M IN Location: [place] [id number] Documented by User: Amparo Marina 04/06/23 15:02 TCU RX Drug Regimen Review Subjective/Objective Subjective/Objective: Subjective: TCU Admission. 77 YOF presented to the ER with edema. Hospitalized for right lower extremity cellulitis, failure to thrive, complicated by acute anemia 2/2 gastric ulcers, duodenitis, thrombocytopenia. Admitted to TCU with debility for strengthening and rehabilitation. Objective: Allergies Penicillins Allergy (Severe, Verified 03/28/23 16:32) Anaphylaxis Current Medications Generic Name Dose Route Start Last Admin Trade Name Freq PRN Reason Stop Dose Admin Acetaminophen 1,000 mg 04/05/23 20:15 Acetaminophen 500 Mg Tablet PO Q6H PRN PRN Pain Score 1-10 Albuterol Sulfate 2.5 mg 04/05/23 14:09 Albuterol 2.5 Mg/3 Ml Vial.Neb. INHALATION Q2H PRN PRN SOB/Wheezing Albuterol/Ipratropium 3 ml 04/05/23 14:15 04/06/23 08:25 Ipratropium/Albuterol Sulfate 3 Ml Ampul.Neb INHALATION 3 ml Q6HWA.RT MARGARETTE Administration Budesonide 0.5 mg 04/05/23 14:15 04/06/23 08:25 Budesonide Respules 0.5 Mg/2 Ml Ampul.Neb. INHALATION 0.5 mg Q12H.RT MARGARETTE Administration Calamine/Phenol 1 applic 04/05/23 22:00 04/06/23 08:55 Menthol/Lanolin/Calamine/Znox 113 Gm Tube TOPICAL 1 applic BID MARGARETTE Administration Protocol Cholecalciferol 25 mcg 04/06/23 10:00 04/06/23 08:49 Cholecalciferol (Vit D3) 25 Mcg Tablet (1,000 Units) PO 25 mcg DAILY MARGARETTE Administration Fluticasone Propionate 1 spray 04/06/23 10:00 04/06/23 08:50 Fluticasone 0.05% 1 [place] Nasal.Sry NASAL 1 spray DAILY MARGARETTE Administration Gabapentin 300 mg 04/05/23 22:00 04/06/23 08:52 Gabapentin 300 Mg Capsule PO 300 mg Q12 MARGARETTE Administration Itraconazole 200 mg 04/05/23 17:00 04/06/23 08:48 Itraconazole 100 Mg Capsule PO 200 mg BIDCM [facility] Administration Magnesium Citrate 300 ml 04/05/23 20:14 Magnesium Citrate 300 Ml PO DAILY PRN Constipation Multivitamins 1 tablet 04/06/23 08:00 04/06/23 08:49 [facility] Administration Multivitamins/Minerals 2 cap 04/05/23 17:00 04/06/23 08:48 Multivitamin (Healthy Eyes) [facility]aps[facility] Administration Oxycodone HCl 5 mg 04/05/23 14:09 Oxycodone 5 Mg Tablet PO Q4H PRN PRN Pain Score 4-10 Pantoprazole Sodium 40 mg 04/05/23 22:00 04/06/23 08:49 Pantoprazole Sodium 40 Mg Tablet PO 40 mg BID MARGARETTE Administration Potassium Chloride 20 meq 04/07/23 08:00 Potassium Chloride Oral [facility] Senna/Docusate Sodium 1 tablet 04/05/23 22:00 04/06/23 08:49 Senna/Docusate Sodium 1 Tablet PO 1 tablet BID MARGARETTE Administration Tuberculin PPD 0.1 ml 04/13/23 10:00 Tuberculin,Purif.Prot.Deriv. 50 Tu/Ml Vial ID 04/13/23 10:01 X1 ONE Problem List (Updated 04/05/23 @ 20:[address] dEinson Irvin MD) History of blood clots (Acute) Histoplasmosis (Acute) COPD (chronic obstructive pulmonary disease) (Chronic) Edema (Acute) Duodenitis (Acute) Gastric ulcer (Acute) Acute anemia (Acute) Failure to thrive (Acute) Cellulitis of right lower extremity (Acute) Debility (Acute) Thrombocytopenia (Acute) Rheumatoid arthritis (Acute) Vital Signs Temp Pulse Resp BP Pulse Ox O2 Del Method 98.2 F 80 18 137/77 H 97 Room Air 04/05/23 13:44 04/06/23 08:25 04/06/23 08:25 04/05/23 13:44 04/06/23 08:25 04/06/23 08:25 Oxygen Delivery Method Room Air Weight: 57.878 kg Body Mass Index (BMI) 22.6 Sodium 135 mmol/L (136-145) L 04/06/23 05:09 Potassium 3.1 mmol/L (3.5-5.1) L 04/06/23 05:09 Chloride 103 mmol/L (98-107) 04/06/23 05:09 Carbon Dioxide 28.0 mmol/L (21.0-32.0) 04/06/23 05:09 Anion Gap 4 (5-15) L 04/06/23 05:09 BUN 21 mg/dL (7-18) H 04/06/23 05:09 Creatinine 0.58 mg/dL (0.55-1.02) 04/06/23 05:09 Est GFR (MDRD) Af Amer 131 mL/min (>60) 04/06/23 05:09 Est GFR (MDRD) Non-Af 109 mL/min (>60) 04/06/23 05:09 BUN/Creatinine Ratio 36.5 RATIO (10-20) H 04/06/23 05:09 Glucose 87 mg/dL (74-106) 04/06/23 05:09 Assessment/Plan: 1. Pain: acetaminophen 1000mg PO Q6H PRN pain (1-3) and oxycodone 5mg PO Q4H PRNpain (4-10). Resident no documented use of PRN medications. Please continue to monitor for increased/decreased S/S pain, falls/fractures (BEERs medication), Liver function (AST/ALT WNL 04/02/23) and PRN usage, constipation and respiratorydepression.? 2. Bowel: senna/docusate 1T PO BID and magnesium citrate 300mL PO daily PRN constipation. Resident has not had any PRN doses. Last documented bowel movement 04/03. Please continue to monitor for constipation and PRN usage. 3. Gastric ulcer/duodenitis: pantoprazole 40mg PO BID. Continue to monitor for dark/tarry stool, coffee ground emesis, diarrhea (BEERs medication), constipation and magnesium (last WNL 04/01/23). Most recent Hgb 8.9 g/dL (04/16/23).? 4. COPD: Budesonide 0.5mg q12, Duoneb 3ml inhalation q6wa and albuterol 2.5mg Q2PRN SOB/wheezing. No documented administrations of PRN medication for SOB/wheezing. Monitor for SOB, wheezing, increased sputum production. Monitor for shakiness, increased heart rate with albuterol administration (last 97 bpm).Monitor for increased risk of thrush with budesonide use, wash mouth out following use.? 5. Allergic Rhinitis: Flonase 1 spray nasal daily. Monitor allergy symptoms including nasal congestion, runny nose. Monitor for nasal irritation/bleeding. 6. History of Blood Clots/ DVT Prophylaxis: Warfarin currently on hold due to thrombocytopenia. Continue to monitor CBC and restart therapy when platelets > 50,000 (last 32,000 04/06/23). 7. Histoplasmosis: itraconazole 200mg PO BIDCM. Monitor for S/S of respiratory distress. Monitor for GI disturbance- N/V/D, abdominal pain. Per hospitalist note, resident to see Dr. Hart of infectious disease in 3 months. Medicationsfor rheumatoid arthritis currently on hold until cleared by ID (methotrexate, leucovorin and Humira). 8. General Wellness: cholecalciferol 25 mcg PO daily, multivitamin 1T PO daily and Healthy Eyes 2 caps BIDCM. Monitor for s/s of maculae degeneration.?Please consider ordering a vitamin D level as there is no level in the chart. Thanks. 9. Hypokalemia (based on potassium of 3.1mmol/L): potassium chloride 20mEQ PO DAILYCM. Please continue to monitor potassium. Assessment/Plan for indications treated with psychotropic medications: 1. Neuropathic pain: gabapentin 300mg PO Q12H. GDR not appropriate as this medication is being used for neuropathic pain. Monitor for tingling/burning in extremities, dizziness, somnolence, falls/fractures (BEERs medication) and renalfunction (BEERs medication, frequency appropriate with CrCl 50 mL/min, Scr adjusted for age to 0.8). ? Medical chart and medication regimen reviewed. The following medication irregularities or issues were identified: 1. Cholecalciferol 25 mcg PO daily.?Please consider ordering a vitamin D level as there is no level in the chart. Thanks. Date Date of Note:: 04/06/23 Documented by User: Dr. Edinson Irvin MD 04/06/23 14:59 TCU RX Drug Regimen Review Provider Comments Provider responsibility Provider Comments to Recommendations by Pharmacy: Agree 04/06/23 1502 <Electronically signed by Amparo Marina> Amparo Marina Cosigner Signature (if applicable): 04/06/23 1459 <Electronically signed by Edinson Irvin MD> CC: ~ Signed [facility] Work Phone: 1(753) 301-775702-15-2024 Consult note [facility] April 05, 2023 10:22am Note Date/Time April 04, 2023 4:12pm [facility] [address] [place] [address] Consultation - Oncology IP 04/04/23 1610 MR#: [id number] Acct: [id number] Name: ROBBYHAYDEE DIONTE Rep #:[id number] : 1945 77 From: Alcides tavares MD PCP: Dr. Claudine Durán MD Status:AD M IN Location: [facility] [id number] Assessment & Plan Assessment/Plan (1) Thrombocytopenia: Status: Acute Code(s): D69.6 - Thrombocytopenia, unspecified Plan: Acute moderately severe onset is in March 2023 no active bleeding and no evidence for recent thrombosis no recent use of heparin. She has a remote history of venous thromboembolic disease and was on Coumadin until recent hospitalization at [facility] in early March 2023. Has had multiple hospitalizations at different institutions which fragments her careand adds to the complexity of her case. The cause for her acute thrombocytopenia is difficult to pinpoint but is most likely related to acute on chronic illness and multi antimicrobial use. There is no evidence to suggest microangiopathic hemolysis or heparin-induced thrombocytopenia. The primary bone marrow disease is very unlikely. All antimicrobials except for itraconazole has been stopped. 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 Her anemia is consistent with anemia of chronic disease and acute inflammation. There is no evidence for nutritional deficiencies. Recommendations from hematology: 1. Conservative watchful for the thrombocytopenia. All antimicrobials except for itraconazole have been discontinued.Drug-induced thrombocytopenia on averagerecovers in about 1 week dependent on drug metabolism and elimination. 2. Prophylactic platelet transfusion if platelet count is less than 10K, patient has active bleeding other than bruising or minor nose or gum bleed and prior to any invasive procedure. 3. Continue to hold systemic anticoagulation until platelet count is above 50 K, use nonpharmacologic venous thromboembolism prophylaxis.. 4. Patient's is an established at [facility] and therefore I advised continued follow-up there. Impression and plan discussed with the patient and her friend. Impression and plan discussed with hospitalist. Alcides Abel MD Research/Program Director, [facility] Divisions of Medical Oncology & Hematology Department of Internal Medicine [place] [address] This note was generated using a voice recognition system software. Although itwas reviewed by the author prior to finalization, it may still contain incorrectwords, spelling, and punctuation that were not noted when reviewing prior to saving. If a clinically significant typo or inaccurately typed phrase is noted, please notify the author. (2) Anemia: Status: Chronic Code(s): D64.9 - Anemia, unspecified HPI Consult Data Date of Service:: 04/05/23 PCP / Referring Provider: Dr. Claudine Durán MD Attending: Dr. Jasmyn Chan DO Chief Complaint Chief Complaint: Thrombocytopenia History of Present Illness History of Present Illness: 77-year-old female being consulted for an acute thrombocytopenia (see lab section for account maintenance representative platelet counts) with no active bleeding or thrombosis. The patient has multiple chronic medical problems and multiple hospitalizations between [facility] and [facility] and is presenting with failure to thrive at home. Medical history notable for chronic rheumatoid arthritis for which she was treated in the past with methotrexate and Biologics but none since January 2023when she developed reactivation of previously treated pulmonary histoplasmosis and has been on itraconazole starting around "2023". She has a past history of venous thromboembolic disease and was on Coumadin until recently. She has chronic lower extremities edema and ulcers for which she has received multiple courses of antibiotics. In early March 2023 she was seen at [facility] and transferred to [facility] with suspected bowel perforation and was treated conservatively with antimicrobials. On the current admission she was receiving Cipro and Flagyl in addition to itraconazole s that was started around February 2023. In her last admission to [facility] in March 2023 Coumadin was held, because not clear and patient as far as she can tell did not receive any heparin injections . Advanced Directives Power of Needlemaker: Yes Living Will: Yes [facility] Medical History (Updated 04/05/23 @ 10:[address] Alcides Abel MD) Colitis COPD (chronic obstructive pulmonary disease) COVID-19 DVT (deep venous thrombosis) Former smoker Histoplasmosis Pulmonary embolism Rheumatoid arthritis Thrombocytopenia Home Medications adalimumab 40 mg/0.4 mL subcutaneous pen kit (Humira(CF) Pen) 40 mg subcut Q14D 03/19/23 [History Last Taken Unknown] albuterol sulfate 90 mcg/actuation aerosol inhaler 2 puff inhalation Q4H PRN shortness of breath or wheezing 03/19/23 [History Last Taken Unknown] budesonide-formoterol HFA 160 mcg-4.5 mcg/actuation aerosol inhaler (Symbicort) 2 puff inhalation Q12H 03/19/23 [History Last Taken Unknown] fluticasone propionate 50 mcg/actuation nasal spray,suspension 1 spray intranasal DAILY allergies 03/19/23 [History Last Taken Unknown] gabapentin 300 mg capsule 300 mg PO Q12H pain 03/19/23 [History Last Taken Unknown] irbesartan 150 mg-hydrochlorothiazide 12.5 mg tablet 1 tab PO DAILY 03/19/23 [History Last Taken Unknown] multivitamin (Daily Multi-Vitamin tablet) 1 tab PO DAILY supplement 03/19/23 [History Last Taken Unknown] naproxen 500 mg tablet 500 mg PO Q12H 03/19/23 [History Last Taken Unknown] pantoprazole 40 mg tablet,delayed release 40 mg PO DAILY 03/19/23 [History Last Taken Unknown] potassium chloride 20 mEq tablet,extended release(part/cryst) (Klor-Con M) 20 meq PO BID 03/19/23 [History Last Taken Unknown] tiotropium bromide 2.5 mcg/actuation mist for inhalation (Spiriva Respimat) 2 puff inhalation Q24H 03/19/23 [History Last Taken Unknown] vitamins A,C,V-qvjk-hjkwqe 2,148 mcg-113 mg-45 mg-17.4 mg tablet (PreserVision AREDS) 2 tab PO BID 03/19/23 [History Last Taken Unknown] warfarin 5 mg tablet 5 mg PO .COMPLEX 03/19/23 [History Last Taken Unknown] cholecalciferol (vitamin D3) 25 mcg (1,000 unit) capsule 25 mcg PO DAILY 03/26/23 [History Last Taken Unknown] ciprofloxacin HCl 500 mg tablet 500 mg PO Q12H 03/26/23 [History Last Taken Unknown] dexamethasone 6 mg tablet 6 mg PO DAILY 03/26/23 [History Last Taken Unknown] itraconazole 10 mg/mL oral solution 100 mg PO Q8H unknown 03/26/23 [History Last Taken Unknown] loperamide 2 mg capsule (Anti-Diarrheal (loperamide)) 4 mg PO TID diarrhea 03/26/23 [History Last Taken Unknown] metronidazole 500 mg tablet 500 mg PO TID 03/26/23 [History Last Taken Unknown] vitamin A-vitamin C-vit E-min tablet (Ocutabs tablet) 2 tab PO DAILY 03/26/23 [History Last Taken Unknown] furosemide 20 mg tablet (Lasix) 20 mg PO DAILY 14 days #14 tabs 03/28/23 [Rx Last Taken Unknown] Allergy/AdvReac Type Severity Reaction Status Date / Time Penicillins Allergy Severe Anaphylaxis Verified 03/28/23 16:32 Surgical History History of embolic filter insertion Hx of foot surgery Social History Smoking Status: Former smoker ROS Constitutional Constitutional: Reports fatigue and other Details: Her weight fluctuates with the amount of edema she is having ; Denies fever(s) ENT HEENT: Reports other Details: No nose or gum bleed Cardiovascular Cardiovascular: Reports dyspnea and edema; Denies chest pain Respiratory/Chest Respiratory/Chest: Denies hemoptysis Gastrointestinal Gastrointestinal: Denies hematochezia or melena Genitourinary Genitourinary: Denies hematuria Musculoskeletal Musculoskeletal: Reports joint pain and limited range of motion Integumentary Integumentary: Reports unusual bruising and other Details: Edema and oozing lower extremity Neurologic Neurologic: Denies abnormal speech or focal weakness Hematologic/Lymphatic Hematologic/Lymphatic: Reports easy bruising; Denies easy bleeding or lymphadenopathy Physical Exam Narrative ECOG 3 chronically ill looking but in no acute distress Const alert and oriented x3 General Appearance: ill appearing Positive for chronically, frail and grossly edematous HEENT normocephalic Eyes no scleral icterus Neck no lymphadenopathy and no JVD Resp clear to auscultation bilaterally Cardio regular rate and regular rhythm GI soft to palpation and non-tender Extremity General Extremity: edema bilateral lower extremity Details: severe Skin General Skin Exam: ecchymosis Neuro CN's II-XII intact bilaterally, moves all extremities and no focal motor deficits Psych mental status grossly normal Vital Signs Temperature 98.2 F 04/04/23 14:20 Temperature Source Oral 04/04/23 14:20 Pulse Rate 93 04/04/23 14:20 Pulse Strength Normal (2+) 04/04/23 08:55 Respiratory Rate 16 04/04/23 14:20 Respiratory Effort Normal 04/04/23 08:55 Respiratory Depth Normal 04/04/23 08:55 Respiratory Pattern Normal 04/04/23 08:55 Blood Pressure 119/98 H 04/04/23 14:20 Blood Pressure Mean 105 04/04/23 14:20 Blood Pressure Source Monitor 04/04/23 14:20 Blood Pressure Position Supine 04/04/23 14:20 Blood Pressure Location Left Arm 04/04/23 14:20 Baseline BP 109/61 04/02/23 17:20 Pulse Ox 96 04/04/23 14:20 Oxygen Delivery Method Room Air 04/04/23 14:20 Laboratory Results - last 24 hr 04/03/23 06:40: Diff Path Review Reviewed 04/04/23 06:42: WBC 6.2, RBC 3.54 L, Hgb 10.0 L, Hct 29.8 L, MCV 84.2, MCH 28.2,MCHC 33.6, RDW Std Deviation 69.2 H, RDW Coeff of Catarino 23.0 H, Plt Count 40 L*, MPV 10.5, Immature Gran % (Auto) 0.700, Neut % (Auto) 76.5 H, Lymph % (Auto) 9.4L, [place] % (Auto) 8.3, Eos % (Auto) 4.9, Baso % (Auto) 0.2, Absolute Neuts (auto)4.7, Absolute Lymphs (auto) 0.58 L, Nucleated RBC % 0, Diff Path Review May , Platelet Estimate MKD DEC, Anisocytosis 2+ Laboratory Tests 03/19/23 03/19/23 03/19/23 11:25 11:25 11:25 WBC 6.4 Hgb Plt Count 145 L Absolute Neuts (auto) 4.4 03/26/23 03/26/23 03/26/23 13:15 13:15 13:15 WBC 16.9 H Hgb Plt Count 169 Absolute Neuts (auto) 13.6 H 03/27/23 03/27/23 03/27/23 06:47 06:47 06:47 WBC 12.4 H Hgb 7.9 L Plt Count 134 L Absolute Neuts (auto) 03/27/23 03/28/23 03/28/23 06:47 16:37 16:37 WBC 14.1 H Hgb 9.6 L Plt Count Absolute Neuts (auto) 9.5 H 03/28/23 03/28/23 03/31/23 16:37 16:37 18:12 WBC Hgb 8.3 L Plt Count 170 Absolute Neuts (auto) 11.3 H 03/31/23 03/31/23 03/31/23 18:12 18:12 18:12 WBC 19.4 H Hgb Plt Count 95 L Absolute Neuts (auto) 17.6 H 04/01/23 04/01/23 04/01/23 05:14 05:14 05:14 WBC 11.7 H Hgb 6.5 L Plt Count 61 L Absolute Neuts (auto) 10.3 H 04/01/23 04/01/23 04/02/23 16:37 20:22 07:10 WBC Hgb 9.1 L 9.9 L Plt Count 40 L* Absolute Neuts (auto) 04/02/23 04/02/23 04/03/23 07:10 07:10 06:40 WBC 9.4 Hgb 9.8 L Plt Count 39 L* Absolute Neuts (auto) 8.2 H 04/03/23 04/03/23 04/03/23 06:40 06:40 06:40 WBC 6.3 Hgb 9.4 L Plt Count Absolute Neuts (auto) 5.2 04/04/23 04/04/23 04/04/23 06:42 06:42 06:42 WBC Hgb 10.0 L Plt Count 40 L* Absolute Neuts (auto) 4.7 04/04/23 06:42 WBC 6.2 Hgb Plt Count Absolute Neuts (auto) Laboratory Tests 03/19/23 03/19/23 03/19/23 11:25 11:25 11:25 WBC 6.4 Hgb Plt Count 145 L Absolute Neuts (auto) 4.4 03/26/23 03/26/23 03/26/23 13:15 13:15 13:15 WBC 16.9 H Hgb Plt Count 169 Absolute Neuts (auto) 13.6 H 03/27/23 03/27/23 03/27/23 06:47 06:47 06:47 WBC 12.4 H Hgb 7.9 L Plt Count 134 L Absolute Neuts (auto) 03/27/23 03/28/23 03/28/23 06:47 16:37 16:37 WBC 14.1 H Hgb 9.6 L Plt Count Absolute Neuts (auto) 9.5 H 03/28/23 03/28/23 03/31/23 16:37 16:37 18:12 WBC Hgb 8.3 L Plt Count 170 Absolute Neuts (auto) 11.3 H 03/31/23 03/31/23 03/31/23 18:12 18:12 18:12 WBC 19.4 H Hgb Plt Count 95 L Absolute Neuts (auto) 17.6 H 04/01/23 04/01/23 04/01/23 05:14 05:14 05:14 WBC 11.7 H Hgb 6.5 L Plt Count 61 L Absolute Neuts (auto) 10.3 H 04/01/23 04/01/23 04/02/23 16:37 20:22 07:10 WBC Hgb 9.1 L 9.9 L Plt Count 40 L* Absolute Neuts (auto) 04/02/23 04/02/23 04/03/23 07:10 07:10 06:40 WBC 9.4 Hgb 9.8 L Plt Count 39 L* Absolute Neuts (auto) 8.2 H 04/03/23 04/03/23 04/03/23 06:40 06:40 06:40 WBC 6.3 Hgb 9.4 L Plt Count Absolute Neuts (auto) 5.2 04/04/23 04/04/23 04/04/23 06:42 06:42 06:42 WBC Hgb 10.0 L Plt Count 40 L* Absolute Neuts (auto) 4.7 04/04/23 06:42 WBC 6.2 Hgb Plt Count Absolute Neuts (auto) I personally reviewed patient's peripheral blood smear,Her myeloid series is unremarkable, red blood cells are normocytic normochromic no schistocytes and platelets are decreased in number. Diagnostic Data Tibia/Fibula X-Ray 03/31/23 17:49 IMPRESSION: No acute radiographic abnormalities. Electronically Signed: Michael Galarza MD at 19:30 EST , Chest X-Ray 03/31/23 18:32 IMPRESSION: No change from prior study. Electronically Signed: Michael Galarza MD at 19:29 EST , Echocardiogram 03/31/23 21:33 Interpretation Summary The estimated ejection fraction is 70 %. Unable to assess diastolic dysfunction. The left atrium is severely enlarged. Severe aortic stenosis. Ordering Physician: Laine Veras Performed By: Maurilio Hernandez RCS Ankle X-Ray 03/31/23 22:10 IMPRESSION: Soft tissue swelling without obvious fracture. Electronically Signed: Michael Galarza MD at 23:54 EST , Venous Doppler Study 04/01/23 06:43 Interpretation Summary Deep veins of the bilateral lower extremity are patent and compressible segmentally. There is no evidence of bilateral lower extremity deep vein thrombosis. The bilateral great saphenous veins appear patent and compressible segmentally. Ordering Physician: Alisa Mathew Referring Physician: Claudine Durán M.D. Performed By: Dany Kramer RVT 04/05/23 1022 <Electronically signed by Alcides Abel MD> CC: MEENU Herrera; Dr. Alisa Mathew MD; Dr. Naman Meredith MD; Dr. Geno Rush MD; Dr. Lg Rios MD; Dr. Rachael Weiss MD; Dr. Stevan Rodríguez MD; Dr. Adarsh Prakash MD; Dr. Jing Reyes MD; Dr. Claudine Durán MD; Dr. Alcides Abel MD; Dr. Efrain Quevedo MD; Dr. Laine Veras MD; Dr. Frederick Dick DO; Dr. London Sandra MD; Dr. Leobardo Calloway MD; Dr. Chris Royal MD; Dr. Jorgito Agarwal DO ~ Signed [facility] Work Phone: [phone] Progress note Author Jasmyn [facility] April 04, 2023 6:11pm Note Date/Time April 04, 2023 6:11pm [facility] Medical Records Department [address] [place] [id number] Progress Note - Hospitalist 04/04/23 1807 MR#: [id number] Acct: [id number] Name: HAYDEE BUSTAMANTE Rep #:[id number] : 1945 77 From: Jasmyn Chan DO PCP: Dr. Claudine Durán MD Status:AD M IN Location: [place] [address]- Reason for Visit Reason for Visit: Diagnoses Anemia, unspecified (03/31/23) Cellulitis, unspecified (03/31/23) Rheumatoid arthritis, unspecified (03/31/23) Weakness (03/31/23) Localized edema (03/31/23) Personal history of other venous thrombosis and embolism (03/31/23) Subjective Subjective Patient was seen and examined today, she was seen by hematology today, they recommended monitoring the patient's platelet count and resuming Coumadin only if the platelet count was above 50,000. Etiology of the thrombocytopenia is unknown at this time. Objective Data Objective Data Vital Signs: Vital Signs Temp Pulse Resp BP Pulse Ox O2 Del Method 98.2 F 93 16 119/98 H 96 Room Air 04/04/23 14:20 04/04/23 14:20 04/04/23 14:20 04/04/23 14:20 04/04/23 14:20 04/04/23 17:52 Oxygen Delivery Method Room Air Weight: 56.472 kg Body Mass Index (BMI) 22.0 Intake & Output: Intake and Output for Last 24 Hours 04/02/23 04/03/23 04/04/23 23:59 23:59 23:59 Intake Total 973.5 / 973.5 560 / 560 570 / 570 Output Total 1350 / 1350 200 / 200 200 / 200 Balance -376.5 / -376.5 360 / 360 370 / 370 Medical Nutrition Assessment Dietitian: Malnutrition Criteria Met Start: 04/01/23 12:03 Freq: Status: Active Protocol: Document 04/04/23 14:00 AG (Rec: 04/04/23 14:02 AG Desktop) Nutrition Malnutrition Evidence of Malnutrition Exists Yes Malnutrition (severe): Acute Illness/Injury Evidenced By Suboptimal Energy Intake ( Severe),Weight Loss (Severe) Clinical Problem Acute Disease or Injury Related Malnutrition Etiology severe, acute malnutrition r/t recent COVID, hospitalizations, GI dysfunction Signs/Symptoms as evidenced by unintentional 4kg/7% wt loss x1 week, estimated PO intake meeting < 50% of estimated energy needs >1 week Status Active Problem Recommendation Dietitian Recommendations/Changes continue regular diet as tolerated; will defer ONS at this time as it appears PO intake is improving. Lab / Micro Data 04/04/23 16:19 04/02/23 07:10 Labs: Laboratory Results - last 24 hr 04/03/23 06:40: Diff Path Review Reviewed 04/04/23 06:42: WBC 6.2, RBC 3.54 L, Hgb 10.0 L, Hct 29.8 L, MCV 84.2, MCH 28.2,MCHC 33.6, RDW Std Deviation 69.2 H, RDW Coeff of Catarino 23.0 H, Plt Count 40 L*, MPV 10.5, Immature Gran % (Auto) 0.700, Neut % (Auto) 76.5 H, Lymph % (Auto) 9.4L, [place] % (Auto) 8.3, Eos % (Auto) 4.9, Baso % (Auto) 0.2, Absolute Neuts (auto)4.7, Absolute Lymphs (auto) 0.58 L, Nucleated RBC % 0, Diff Path Review May sundeep Platelet Estimate MKD DEC, Anisocytosis 2+ 04/04/23 16:19: WBC 5.3, RBC 3.42 L, Hgb 9.7 L, Hct 29.5 L, MCV 86.3, MCH 28.4, MCHC 32.9, RDW Std Deviation 70.8 H, RDW Coeff of Catarino 23.1 H, Plt Count 41 L*, MPV 10.2, Immature Gran % (Auto) 0.600, Neut % (Auto) 73.8 H, Lymph % (Auto) 11.4 L, [place] % (Auto) 9.8, Eos % (Auto) 4.2, Baso % (Auto) 0.2, Absolute Neuts (auto) 3.9, Absolute Lymphs (auto) 0.60 L, Nucleated RBC % 0, Differential Comment SCANNED, Diff Path Review June foll, Anisocytosis 2+ Physical Exam Narrative alert, oriented x3 and no apparent distress Constitutional Narrative: Patient appears frail and older than her stated age General Appearance: cooperative, well kempt and well developed Orientation / Consciousness: awake, oriented to person and oriented to place HEENT normocephalic, head/scalp atraumatic and moist oral mucous membranes Eyes PERRL, EOMs intact bilaterally and conjunctivae normal Neck supple, no JVD, thyroid normal and no carotid bruits General: trachea midline Resp normal respiratory effort and clear to auscultation bilaterally Auscultation: Negative for rales, rhonchi or wheezes Cardio regular rate, regular rhythm, S1 normal heart sound, S2 normal heart sound, no murmurs, no rub and no gallops GI normal to inspection, nondistended, normoactive bowel sounds, soft to palpation,non-tender and non-distended Extremity no clubbing, cyanosis or edema Skin Skin Narrative: Patient has some areas of skin breakdown over both lower legs, there is some serous drainage noted from a few small open areas Neuro oriented x3, CN's II-XII intact bilaterally, moves all extremities, no focal motor deficits and no sensory deficits noted Sensorium / Orientation: awake and alert Speech: speech normal Psych affect normal Assessment & Plan Assessment/Plan (1) Weakness: PLAN: Plan 1. Right lower extremity cellulitis-resolved at this time, patient completed a course of antibiotics #2 acute on chronic anemia requiring blood transfusion-etiology unclear, monitorH&H as necessary #3 gastric ulcers-continue PPI #4 duodenitis-continue PPI #5 acute debility-patient has agreed to go to TCU for inpatient rehab services, we will need pre-CERT from her insurance company for this. #6 histoplasmosis-patient is currently on itraconazole #7 thrombocytopenia-etiology unclear, patient's platelet count will be monitored #8 severe acute protein and caloric malnutrition due to recent COVID, hospitalizations, GI dysfunction as evidenced by unintentional 7% weight loss x 1 week, estimating p.o. intake meeting less than 50% of estimated energy needs for over a week-diet will be advanced as tolerated to his transitional, Ensure with med Pass when diet is advanced, nutritional services is participating in her care Total clinical time spent by myself addressing the patient's medical issues, reviewing all of her data, and collaborating with patient's care team: 25 minutes Charges/Coding Visit Charges Inpatient E&M: 13416 Subs Hosp L1 04/04/23 1811 <Electronically signed by Jasmyn Chan DO> Cosigner Signature (if applicable): CC: ~ Signed [facility] Work Phone: [phone]) 479-114302-13-2024 Progress note Author Mathew Orellana [facility] April 03, 2023 5:53pm Note Date/Time April 03, 2023 5:53pm [facility] Medical Records Department [address] [place] [address] Progress Note - GI 04/03/23 1750 MR#: [id number] Acct: [id number] Name: HAYDEE BUSTAMANTE Rep #:[id number] : 1945 77 From: Mathew Orellana DO PCP: Dr. Claudine Durán MD Status:AD M IN Location: [place] [address] Subjective Subjective Patient is doing well without any complaints. She underwent an upper endoscopy yesterday. She denies any abdominal pain. She is tolerating a diet. Objective Data Objective Data Vital Signs: Vital Signs Temp Pulse Resp BP Pulse Ox O2 Del Method 98.3 F 96 16 99/54 L 98 Room Air 04/03/23 15:00 04/03/23 15:04/03/23 15:04/03/23 15:04/03/23 15:00 04/03/23 15:00 Oxygen Delivery Method Room Air Weight: 124 lb 1.924 oz Body Mass Index (BMI) 21.9 Intake & Output: Intake and Output for Last 24 Hours 04/01/23 04/02/23 04/03/23 23:59 23:59 23:59 Intake Total 1082 / 1082 973.5 / 973.5 230 / 230 Output Total 1350 / 1350 Balance 1082 / 1082 -376.5 / -376.5 230 / 230 Medical Nutrition Assessment Dietitian: Malnutrition Criteria Met Start: 04/01/23 12:03 Freq: Status: Active Protocol: Document 04/01/23 12:03 (Rec: 04/01/23 12:03 [id number]) Nutrition Malnutrition Evidence of Malnutrition Exists Yes Malnutrition (severe): Acute Illness/Injury Evidenced By Suboptimal Energy Intake ( Severe),Weight Loss (Severe) Clinical Problem Acute Disease or Injury Related Malnutrition Etiology severe, acute malnutrition r/t recent COVID, hospitalizations, GI dysfunction Signs/Symptoms as evidenced by unintentional 4kg/7% wt loss x1 week, estimated PO intake meeting < 50% of estimated energy needs >1 week Status Active Problem Recommendation Dietitian Recommendations/Changes recommend advance diet as tolerated to transitional; ensure w/ medpass when diet advanced Lab / Micro Data 04/03/23 06:40 04/02/23 07:10 Labs: Laboratory Results - last 24 hr 04/02/23 07:10: Diff Path Review Reviewed 04/03/23 06:40: WBC 6.3, RBC 3.34 L, Hgb 9.4 L, Hct 28.4 L, MCV 85.0, MCH 28.1, MCHC 33.1, RDW Std Deviation 69.6 H, RDW Coeff of Catarino 22.7 H, Plt Count 39 L*, MPV 10.1, Immature Gran % (Auto) 0.600, Neut % (Auto) 82.5 H, Lymph % (Auto) 6.5L, [place] % (Auto) 7.5, Eos % (Auto) 2.7, Baso % (Auto) 0.2, Absolute Neuts (auto)5.2, Absolute Lymphs (auto) 0.41 L, Nucleated RBC % 0, Differential Comment COMMENT, Diff Path Review May foll, Platelet Estimate MKD DEC, Anisocytosis 1+, PT 16.2 H, INR 1.3 Physical Exam Const alert, oriented x3 and no apparent distress Constitutional Narrative: Patient appears frail and older than her stated age General Appearance: cooperative, well kempt and well developed Orientation / Consciousness: awake, oriented to person and oriented to place HEENT normocephalic, head/scalp atraumatic and moist oral mucous membranes Eyes PERRL, EOMs intact bilaterally and conjunctivae normal Neck supple, no JVD, thyroid normal and no carotid bruits General: trachea midline Resp normal respiratory effort and clear to auscultation bilaterally Auscultation: Negative for rales, rhonchi or wheezes Cardio regular rate, regular rhythm, S1 normal heart sound, S2 normal heart sound, no murmurs, no rub and no gallops GI normal to inspection, nondistended, normoactive bowel sounds, soft to palpation,non-tender and non-distended Extremity no clubbing, cyanosis or edema Skin Skin Narrative: Patient has some areas of skin breakdown over both lower legs, there is some serous drainage noted from a few small open areas Neuro oriented x3, CN's II-XII intact bilaterally, moves all extremities, no focal motor deficits and no sensory deficits noted Sensorium / Orientation: awake and alert Speech: speech normal Psych affect normal Assessment & Plan Assessment/Plan (1) Cellulitis: PLAN: Plan The patient is a 77 y/o F w/ PMHx: GERD, Rheumatoid Arthritis, Hx VTE (DVT, PE),Recent diagnosis Histoplasmosis, recent 03/21/33 evaluation at [facility] with transfer to [facility] secondary to concerns for complex bowel obstruction treated conservative, concerns for colitis administered cipro/flagyl, disseminated histoplasmosis treated with itraconazole Acute Anemia on chronic, unclear etiology, questionable GI bleed: Admission hemoglobin 8.3, vacillated during prior admission ranging 7-8. She underwent anupper endoscopy yesterday. Findings: The examined esophagus was normal. Few oozing linear gastric ulcers with pigmented material were found in the gastric antrum and at the pylorus. The largest lesion was 9 mm in largest dimension. Area was successfully injected with 6 mL of a 0.1 mg/mL solution of epinephrine for drug delivery. Coagulation for hemostasis using heater probe was successful. Estimated blood loss was minimal. Two non-bleeding superficial gastric ulcers with no stigmata of bleeding were found in the gastric antrum. The largest lesion was 5 mm in largest dimension. Biopsies were taken with a cold forceps for histology. Verification of patient identification for the specimen was done. Estimated blood loss was minimal. Biopsies were taken with a cold forceps for Helicobacter pylori testing. Verification of patient identification for the specimen was done. Estimated blood loss was minimal. Diffuse mild inflammation characterized by erosions and erythema was found in the duodenal bulb and in the first portion of the duodenum. Impression: - Normal esophagus. - Oozing gastric ulcers with pigmented material. Injected. Treated with a heater probe. - Non-bleeding gastric ulcers with no stigmata of bleeding. Biopsied. - Bile duodenitis. Recommendation: - Return patient to [facility] for ongoing care. - Advance diet as tolerated. - Continue present medications. - Await pathology results. I would hold PPI therapy as it can be associated with thrombocytopenia. If she needs any acid suppression she can get schedule clerk fate or H2 receptor pietro. Charges/Coding Visit Charges Inpatient E&M: 61835 [facility] Hosp 04/03/23 6069 <Electronically signed by Mathew Orellana DO> Cosigner Signature (if applicable): CC: ~ Signed [facility] Work Phone: [phone]) 110-701502-13-2024 Progress note Author Jasmyn Chan [facility] April 03, 2023 5:36pm Note Date/Time April 03, 2023 5:36pm [facility] Medical Records Department [address] [place] [address] Progress Note - Hospitalist 04/03/23 1730 MR#: [id number] Acct: [id number] Name: HAYDEE BUSTAMANTE Rep #:[id number] : 1945 77 From: Jasmyn Chan DO PCP: Dr. Claudine Durán MD Status:AD M IN Location: [place] [address] Reason for Visit Reason for Visit: Diagnoses Anemia, unspecified (03/31/23) Cellulitis, unspecified (03/31/23) Rheumatoid arthritis, unspecified (03/31/23) Weakness (03/31/23) Localized edema (03/31/23) Personal history of other venous thrombosis and embolism (03/31/23) Subjective Subjective Patient was seen and examined today, I have elected to stop her antibiotics, I examined her lower extremities along with the wound care nurse today and it doesnot appear that she has an active cellulitis over her lower extremities. Patient's platelet count remains low, I contacted oncology to see the patient inconsultation. Objective Data Objective Data Vital Signs: Vital Signs Temp Pulse Resp BP Pulse Ox O2 Del Method 98.3 F 96 16 99/54 L 98 Room Air 04/03/23 15:00 04/03/23 15:00 04/03/23 15:00 04/03/23 15:00 04/03/23 15:00 04/03/23 15:00 Oxygen Delivery Method Room Air Weight: 56.3 kg Body Mass Index (BMI) 21.9 Intake & Output: Intake and Output for Last 24 Hours 04/01/23 04/02/23 04/03/23 23:59 23:59 23:59 Intake Total 1082 / 1082 973.5 / 973.5 230 / 230 Output Total 1350 / 1350 Balance 1082 / 1082 -376.5 / -376.5 230 / 230 Medical Nutrition Assessment Dietitian: Malnutrition Criteria Met Start: 04/01/23 12:03 Freq: Status: Active Protocol: Document 04/01/23 12:03 (Rec: 04/01/23 12:03 [id number]) Nutrition Malnutrition Evidence of Malnutrition Exists Yes Malnutrition (severe): Acute Illness/Injury Evidenced By Suboptimal Energy Intake ( Severe),Weight Loss (Severe) Clinical Problem Acute Disease or Injury Related Malnutrition Etiology severe, acute malnutrition r/t recent COVID, hospitalizations, GI dysfunction Signs/Symptoms as evidenced by unintentional 4kg/7% wt loss x1 week, estimated PO intake meeting < 50% of estimated energy needs >1 week Status Active Problem Recommendation Dietitian Recommendations/Changes recommend advance diet as tolerated to transitional; ensure w/ medpass when diet advanced Lab / Micro Data 04/03/23 06:40 04/02/23 07:10 Labs: Laboratory Results - last 24 hr 04/02/23 07:10: Diff Path Review Reviewed 04/03/23 06:40: WBC 6.3, RBC 3.34 L, Hgb 9.4 L, Hct 28.4 L, MCV 85.0, MCH 28.1, MCHC 33.1, RDW Std Deviation 69.6 H, RDW Coeff of Catarino 22.7 H, Plt Count 39 L*, MPV 10.1, Immature Gran % (Auto) 0.600, Neut % (Auto) 82.5 H, Lymph % (Auto) 6.5L, [place] % (Auto) 7.5, Eos % (Auto) 2.7, Baso % (Auto) 0.2, Absolute Neuts (auto)5.2, Absolute Lymphs (auto) 0.41 L, Nucleated RBC % 0, Differential Comment COMMENT, Diff Path Review June foll, Platelet Estimate MKD DEC, Anisocytosis 1+, PT 16.2 H, INR 1.3 Physical Exam Const alert, oriented x3 and no apparent distress Constitutional Narrative: Patient appears frail and older than her stated age General Appearance: cooperative, well kempt and well developed Orientation / Consciousness: awake, oriented to person and oriented to place HEENT normocephalic, head/scalp atraumatic and moist oral mucous membranes Eyes PERRL, EOMs intact bilaterally and conjunctivae normal Neck supple, no JVD, thyroid normal and no carotid bruits General: trachea midline Resp normal respiratory effort and clear to auscultation bilaterally Auscultation: Negative for rales, rhonchi or wheezes Cardio regular rate, regular rhythm, S1 normal heart sound, S2 normal heart sound, no murmurs, no rub and no gallops GI normal to inspection, nondistended, normoactive bowel sounds, soft to palpation,non-tender and non-distended Extremity no clubbing, cyanosis or edema Skin Skin Narrative: Patient has some areas of skin breakdown over both lower legs, there is some serous drainage noted from a few small open areas Neuro oriented x3, CN's II-XII intact bilaterally, moves all extremities, no focal motor deficits and no sensory deficits noted Sensorium / Orientation: awake and alert Speech: speech normal Psych affect normal Assessment & Plan Assessment/Plan (1) Weakness: PLAN: Plan 1. Right lower extremity cellulitis-resolved at this time, patient's antibiotics will be discontinued #2 acute on chronic anemia requiring blood transfusion-etiology unclear, monitorH&H as necessary #3 gastric ulcers-continue PPI #4 duodenitis-continue PPI #5 acute debility-patient has agreed to go to TCU for inpatient rehab services, we will need pre-CERT from her insurance company for this. #6 histoplasmosis-patient is currently on itraconazole #7 thrombocytopenia-oncology will be seeing the patient in consultation Total clinical time spent by myself addressing the patient's medical issues, reviewing all of her data, and collaborating with patient's care team: 25 minutes Charges/Coding Visit Charges Inpatient E&M: 35459 Subs Hosp L1 04/03/23 1736 <Electronically signed by Jasmyn Chan DO> Cosigner Signature (if applicable): CC: ~ Signed [facility] Work Phone: [phone]) 650-852902-12-2024 Progress note Author [facility]asmyn [facility] April 02, 2023 8:07pm Note Date/Time April 02, 2023 8:07pm [facility] Medical Records Department [address] [place] [address] Progress Note - Hospitalist 04/02/232000 MR#: [id number] Acct: [id number] Name: HAYDEE BUSTAMANTE Rep #:[id number] : 1945 77 From: Jasmyn Chan DO PCP: Dr. Claudine Durán MD Status:AD M IN Location: [place] [address] Reason for Visit Reason for Visit: Diagnoses Anemia, unspecified (03/31/23) Cellulitis, unspecified (03/31/23) Rheumatoid arthritis, unspecified (03/31/23) Weakness (03/31/23) Localized edema (03/31/23) Personal history of other venous thrombosis and embolism (03/31/23) Subjective Subjective Patient was seen and examined today, she underwent an EGD today which showed duodenitis and gastric ulcers. Gastroenterology advised to advance her diet as tolerated. Objective Data Objective Data Vital Signs: Vital Signs Temp Pulse Resp BP Pulse Ox O2 Del Method 97.3 F L 73 18 109/61 99 Room Air 04/02/23 18:06 04/02/23 18:06 04/02/23 18:06 04/02/23 18:06 04/02/23 18:06 04/02/23 18:06 Oxygen Delivery Method Room Air Weight: 56.1 kg Body Mass Index (BMI) 21.9 Intake & Output: Intake and Output for Last 24 Hours 03/31/23 04/01/23 04/02/23 23:59 23:59 23:59 Intake Total 550 / 550 1082 / 1082 713.5 / 713.5 Output Total 700 / 700 Balance 550 / 550 1082 / 1082 13.5 / 13.5 Medical Nutrition Assessment Dietitian: Malnutrition Criteria Met Start: 04/01/23 12:03 Freq: Status: Active Protocol: Document 04/01/23 12:03 (Rec: 04/01/23 12:03 [id number]) Nutrition Malnutrition Evidence of Malnutrition Exists Yes Malnutrition (severe): Acute Illness/Injury Evidenced By Suboptimal Energy Intake ( Severe),Weight Loss (Severe) Clinical Problem Acute Disease or Injury Related Malnutrition Etiology severe, acute malnutrition r/t recent COVID, hospitalizations, GI dysfunction Signs/Symptoms as evidenced by unintentional 4kg/7% wt loss x1 week, estimated PO intake meeting < 50% of estimated energy needs >1 week Status Active Problem Recommendation Dietitian Recommendations/Changes recommend advance diet as tolerated to transitional; ensure w/ medpass when diet advanced Lab / Micro Data 04/02/23 07:10 04/02/23 07:10 Labs: Laboratory Results - last 24 hr 04/01/23 20:22: Hgb 9.9 L, Hct 29.9 L 04/02/23 07:10: WBC 9.4, RBC 3.43 L, Hgb 9.8 L, Hct 29.0 L, MCV 84.5, MCH 28.6, MCHC 33.8, RDW Std Deviation 70.3 H, RDW Coeff of Catarino 23.1 H, Plt Count 40 L*, MPV 10.3, Immature Gran % (Auto) 0.900, Neut % (Auto) 86.6 H, Lymph % (Auto) 6.4L, [place] % (Auto) 5.4, Eos % (Auto) 0.6, Baso % (Auto) 0.1, Absolute Neuts (auto)8.2 H, Absolute Lymphs (auto) 0.60 L, Nucleated RBC % 0, Differential Comment COMMENT, Diff Path Review May foll, Platelet Estimate MKD DEC, Anisocytosis 1+, PT 15.8 H, INR 1.3, Sodium 134 L, Potassium 3.6, Chloride 102, Carbon Dioxide 27.0, Anion Gap 5, BUN 13, Creatinine 0.52 L, Estim Creat Clear Calc 50.26, Est GFR (MDRD) Af Amer 149, Est GFR (MDRD) Non-Af 123, BUN/Creatinine Ratio 25.1 H, Glucose 86, Calcium 7.2 L, Total Bilirubin 1.70 H, AST 20, ALT 35, Alkaline Phosphatase 84, Total Protein 4.9 L, Albumin 2.0 L, Globulin 2.9, Albumin/Globulin Ratio 0.7 L Radiography Diagnostic Testing: Radiology Impression Echocardiogram 03/31/23 21:33 Interpretation Summary The estimated ejection fraction is 70 %. Unable to assess diastolic dysfunction. The left atrium is severely enlarged. Severe aortic stenosis. Ordering Physician: Laine Veras Performed By: Maurilio Hernandez RCS Venous Doppler Study 04/01/23 06:43 Interpretation Summary Deep veins of the bilateral lower extremity are patent and compressible segmentally. There is no evidence of bilateral lower extremity deep vein thrombosis. The bilateral great saphenous veins appear patent and compressible segmentally. Ordering Physician: Alisa Mathew Referring Physician: Claudine Durán M.D. Performed By: Dany Kramer RVT Physical Exam Const alert and no apparent distress Constitutional Narrative: Patient appears frail and older than her stated age General Appearance: cooperative, well kempt and well developed Orientation / Consciousness: awake, oriented to person and oriented to place HEENT normocephalic and head/scalp atraumatic Mouth: dry mucous membranes Eyes PERRL, EOMs intact bilaterally and conjunctivae normal Neck supple, no JVD, thyroid normal and no carotid bruits General: trachea midline Resp normal respiratory effort, no retractions, no use of accessory muscles and clearto auscultation bilaterally Auscultation: Negative for rales, rhonchi or wheezes Cardio regular rate, regular rhythm, S1 normal heart sound, S2 normal heart sound, no murmurs, no rub and no gallops GI normal to inspection, nondistended, normoactive bowel sounds, soft to palpation,non-tender and non-distended Extremity no clubbing, cyanosis or edema Skin no rashes or lesions noted General Skin Exam: no breakdown Neuro oriented x3, CN's II-XII intact bilaterally, moves all extremities, no focal motor deficits and no sensory deficits noted Sensorium / Orientation: awake and alert Speech: speech normal Psych affect normal Assessment & Plan Assessment/Plan (1) Weakness: PLAN: Plan 1. Right lower extremity cellulitis-patient is currently on IV Levaquin #2 acute on chronic anemia requiring blood transfusion-etiology unclear, monitorH&H as necessary #3 gastric ulcers-continue PPI #4 duodenitis-continue PPI #5 acute debility-patient may need placement in a detention facility for short-term rehab services. #6 histoplasmosis-patient is currently on itraconazole Total clinical time spent by myself addressing the patient's medical issues, reviewing all of her data, and collaborating with patient's care team: 25 minutes Charges/Coding Visit Charges Inpatient E&M: 77384 Subs Hosp L1 04/02/232006 <Electronically signed by Jasmyn hCan DO> Cosigner Signature (if applicable): CC: ~ Signed [facility] Work Phone: 1(718) 563-667502-12-2024 Miscellaneous Notes* Telephone Encounter - Claudine Durán MD - 04/02/2023 7:52 PM EST Noted regarding fall. * Telephone Encounter - Doretha Miller RN - 04/02/2023 9:44 AM EST Friend answered pt's phone, and after informed this is a nurse in pcp office, friend reported pt was admitted into [facility] PCU after a fall on Sat. Friend does not think there was an injury from fall. Friend reports patient was in [facility] for 1 week, and has been in and out of ER several times since discharge. Advised we would f/u with pt once discharged from [facility]. * Telephone Encounter - Claudine Durán MD - 04/01/2023 4:51 PM EST Noted Patient had recent labs done during admission (was at [facility] and discharged 03/25) Noted alk phos in 200 range. Mild elevation AST and ALT. Albumin low. Has April 29 follow up. Can recheck CMP,CBC with diff, alk phos isoenzymes prior to April appointment. Lab orders filed so may do anytime at her convenience Note that during admission, CT abd showed mild fatty infiltration. no problem with biliary tract orgallbladder. Did have pneumatosis within wall of colon. Might be associated with elevated alk phos. * Telephone Encounter - Geni Cintron LPN - 02/27/2023 1:48 PM EST Faxed received from [facility] Melissa Dorsey CNP stating that the liver enzymes are worse. Please review copy of labs and advise. [facility] Consult note Author Mathew Orellana [facility] April 02, 2023 5:06pm Note Date/Time April 02, 2023 5:00pm [facility] Medical Records Department [address] [place] [address] Consultation - GI 04/01/23 1658 MR#: [id number] Acct: [id number] Name: HAYDEE BUSTAMANTE Rep #:[id number] : 1945 77 From: Mathew Orellana DO PCP: Dr. Claudine Durán MD Status:AD M IN Location: [facility] [id number] HPI Consult Data Date of Consult: 04/01/23 HPI Narrative Reason for Consultation: Anemia HPI Narrative: HAYDEE BUSTAMANTE, is a 77-year-old female history of COPD, Severe . GERD. DVT and PEon Coumadin, histoplasmosis of the lung, RA who presented to [facility] ED 03/31/2023 with bilateral lower extremity edema. She was seen here 03/28/2023 with lower extremity edema. She was initially seen here 03/26/2023 for shortness of breath and inability to care for herself at home after a recent hospital stay at [facility] from which she was discharged on Cipro and Flagyl as well as itraconazole and she was treated also with remdesivir and dexamethasone for COVID-19. Patient was evaluated in the ED and due to her failure to thrive and inability to care for self she was admitted. Patient did well and was feeling better the following day and was discharged home 03/27. She Re-presented to the ED 03/28 with bilateral lower extremity edema, she was not hypoxic and her labs were essentially unchanged from prior so she was placed on 20 mg of Lasix daily and strongly advised to follow- up with her primary care physician. She started the Lasix yesterday but re-presented today for lower extremity edema. In the ED with blood cell count slightly higher than previous at 19.4 and potassium slightly low at 3.2 but lab workup fairly unremarkable otherwise and patient vitally stable in ED. She was noted on physical exam to have right lower extremity cellulitis and tib-fib x-ray obtained which was unremarkable, she was given some IV fluids and a dose of clindamycin and hospitalist contactedfor admission due to her difficulty caring for herself, lower extremity edema, and lower extremity cellulitis. Since being in the hospital she has had improvement to bilateral lower extremityswelling, right less swollen than left however and general serous weeping has also lessened. However she is still with notable tenderness palpation right lower extremity worse than left. I was asked to see her because her hemoglobin decreased to 6.5. [facility] Medical History (Updated 04/02/23 @ 17:[address] Mathew Orellana DO) Colitis COPD (chronic obstructive pulmonary disease) DVT (deep venous thrombosis) Former smoker Histoplasmosis Pulmonary embolism Rheumatoid arthritis Home Medications adalimumab 40 mg/0.4 mL subcutaneous pen kit (Humira(CF) Pen) 40 mg subcut Q14D 03/19/23 [History Last Taken Unknown] albuterol sulfate 90 mcg/actuation aerosol inhaler 2 puff inhalation Q4H PRN shortness of breath or wheezing 03/19/23 [History Last Taken Unknown] budesonide-formoterol HFA 160 mcg-4.5 mcg/actuation aerosol inhaler (Symbicort) 2 puff inhalation Q12H 03/19/23 [History Last Taken Unknown] fluticasone propionate 50 mcg/actuation nasal spray,suspension 1 spray intranasal DAILY allergies 03/19/23 [History Last Taken Unknown] gabapentin 300 mg capsule 300 mg PO Q12H pain 03/19/23 [History Last Taken Unknown] irbesartan 150 mg-hydrochlorothiazide 12.5 mg tablet 1 tab PO DAILY 03/19/23 [History Last Taken Unknown] multivitamin (Daily Multi-Vitamin tablet) 1 tab PO DAILY supplement 03/19/23 [History Last Taken Unknown] naproxen 500 mg tablet 500 mg PO Q12H 03/19/23 [History Last Taken Unknown] pantoprazole 40 mg tablet,delayed release 40 mg PO DAILY 03/19/23 [History Last Taken Unknown] potassium chloride 20 mEq tablet,extended release(part/cryst) (Klor-Con M) 20 meq PO BID 03/19/23 [History Last Taken Unknown] tiotropium bromide 2.5 mcg/actuation mist for inhalation (Spiriva Respimat) 2 puff inhalation Q24H 03/19/23 [History Last Taken Unknown] vitamins A,C,V-kdeh-yywntc 2,148 mcg-113 mg-45 mg-17.4 mg tablet (PreserVision AREDS) 2 tab PO BID 03/19/23 [History Last Taken Unknown] warfarin 5 mg tablet 5 mg PO .COMPLEX 03/19/23 [History Last Taken Unknown] cholecalciferol (vitamin D3) 25 mcg (1,000 unit) capsule 25 mcg PO DAILY 03/26/23 [History Last Taken Unknown] ciprofloxacin HCl 500 mg tablet 500 mg PO Q12H 03/26/23 [History Last Taken Unknown] dexamethasone 6 mg tablet 6 mg PO DAILY 03/26/23 [History Last Taken Unknown] itraconazole 10 mg/mL oral solution 100 mg PO Q8H unknown 03/26/23 [History Last Taken Unknown] loperamide 2 mg capsule (Anti-Diarrheal (loperamide)) 4 mg PO TID diarrhea 03/26/23 [History Last Taken Unknown] metronidazole 500 mg tablet 500 mg PO TID 03/26/23 [History Last Taken Unknown] vitamin A-vitamin C-vit E-min tablet (Ocutabs tablet) 2 tab PO DAILY 03/26/23 [History Last Taken Unknown] furosemide 20 mg tablet (Lasix) 20 mg PO DAILY 14 days #14 tabs 03/28/23 [Rx Last Taken Unknown] Allergy/AdvReac Type Severity Reaction Status Date / Time Penicillins Allergy Severe Anaphylaxis Verified 03/28/23 16:32 Surgical History History of embolic filter insertion Hx of foot surgery Social History Smoking Status: Former smoker ROS ROS Narrative General: Denies fever/chills HENT: Denies headache, denies stuffy nose, denies sore throat EYES: Denies changes in vision Resp: Denies cough, chronic shortness of breath Cardiac: Denies chest pain GI: Denies abdominal pain, denies changes in bowel, denies nausea/vomiting : Denies changes in urination Extremity: Increased swelling in bilateral lower extremities MSK: Some general weakness Neuro: Denies any numbness/tingling Heme: Denies any bleeding or bruising Skin: Some right lower extremity erythema and some petechiae in both lower extremities Psychiatric: No complaints voiced Physical Exam Narrative Physical Examination: General: awake, alert, oriented to self, place and some recent activities, remains cooperative, seated upright in the PCU bed, NAD, fatigued, does not recall several aspects of her most recent admission prior but recalls hospitalist. Skin: normal color, turgor, no icterus, cyanosis except for various staged ecchymoses noted, BL LE with various denuded small regions likely secondary to stasis blisters with no current serous drainage but also some scattered petechiae, right lower extremity with circumferential area of stasis disease andlikely overlapping erythema, she notes its improved. HEENT: AT/NC, EOMI, PERRLA, MMM. Lungs: Mildly diminished, decreased strong respiratory inspiratory effort, no distress, no rales, ronchi or wheezing; Heart: Regular rate and rhythm; no gallop, rub audible. Abdomen: soft, NTTP, ND, normal BS. Extremities: no cyanosis, no clubbing, see skin, right lower extremity notably tender to palpation but no marked pitting edema compared to left lower extremitywith pedal to distal soto 1+ pitting edema. Neurological: patient awake, alert, oriented as noted, cognitive function intactto most questioning but she is not recalling several aspects of her most recent admission, cranial nerves grossly normal, moving all 4 extremities, strength moderately globally creased secondary to acute presentation. Psychiatric: affect appears appropriate, talkative but having difficulties recalling some of the aspects of her recent admission of note, no acute evidenceof depressive or anxiety feelings. Medical Records Data Medical Nutrition Assessment Dietitian: Malnutrition Criteria Met Start: 04/01/23 12:03 Freq: Status: Active Protocol: Document 04/01/23 12:03 (Rec: 04/01/23 12:03 [id number]) Nutrition Malnutrition Evidence of Malnutrition Exists Yes Malnutrition (severe): Acute Illness/Injury Evidenced By Suboptimal Energy Intake ( Severe),Weight Loss (Severe) Clinical Problem Acute Disease or Injury Related Malnutrition Etiology severe, acute malnutrition r/t recent COVID, hospitalizations, GI dysfunction Signs/Symptoms as evidenced by unintentional 4kg/7% wt loss x1 week, estimated PO intake meeting < 50% of estimated energy needs >1 week Status Active Problem Recommendation Dietitian Recommendations/Changes recommend advance diet as tolerated to transitional; ensure w/ medpass when diet advanced Lab / Micro Data 04/02/23 07:10 04/02/23 07:10 Labs: Laboratory Results - last 24 hr 04/01/23 20:22: Hgb 9.9 L, Hct 29.9 L 04/02/23 07:10: WBC 9.4, RBC 3.43 L, Hgb 9.8 L, Hct 29.0 L, MCV 84.5, MCH 28.6, MCHC 33.8, RDW Std Deviation 70.3 H, RDW Coeff of Catarino 23.1 H, Plt Count 40 L*, MPV 10.3, Immature Gran % (Auto) 0.900, Neut % (Auto) 86.6 H, Lymph % (Auto) 6.4L, [place] % (Auto) 5.4, Eos % (Auto) 0.6, Baso % (Auto) 0.1, Absolute Neuts (auto)8.2 H, Absolute Lymphs (auto) 0.60 L, Nucleated RBC % 0, Differential Comment COMMENT, Diff Path Review May foll, Platelet Estimate MKD DEC, Anisocytosis 1+, PT 15.8 H, INR 1.3, Sodium 134 L, Potassium 3.6, Chloride 102, Carbon Dioxide 27.0, Anion Gap 5, BUN 13, Creatinine 0.52 L, Estim Creat Clear Calc 50.26, Est GFR (MDRD) Af Amer 149, Est GFR (MDRD) Non-Af 123, BUN/Creatinine Ratio 25.1 H, Glucose 86, Calcium 7.2 L, Total Bilirubin 1.70 H, AST 20, ALT 35, Alkaline Phosphatase 84, Total Protein 4.9 L, Albumin 2.0 L, Globulin 2.9, Albumin/Globulin Ratio 0.7 L Imaging Radiology Impression Echocardiogram 03/31/23 21:33 Interpretation Summary The estimated ejection fraction is 70 %. Unable to assess diastolic dysfunction. The left atrium is severely enlarged. Severe aortic stenosis. Ordering Physician: Laine Veras Performed By: Maurilio Hernandez RCS Venous Doppler Study 04/01/23 06:43 Interpretation Summary Deep veins of the bilateral lower extremity are patent and compressible segmentally. There is no evidence of bilateral lower extremity deep vein thrombosis. The bilateral great saphenous veins appear patent and compressible segmentally. Ordering Physician: Alisa Mathew Referring Physician: Claudine Durán M.D. Performed By: Dany Kramer T Assessment & Plan Assessment/Plan (1) Cellulitis: (2) Anemia: PLAN: Plan The patient is a 77 y/o F w/ PMHx: GERD, Rheumatoid Arthritis, Hx VTE (DVT, PE),Recent diagnosis Histoplasmosis, recent 03/21/33 evaluation at [facility] with transfer to [facility] secondary to concerns for complex bowel obstruction treated conservative, concerns for colitis administered cipro/flagyl, disseminated histoplasmosis treated with itraconazole, just prior to her presentation diagnosed COVID-19 with hypoxia treated with remdesivir and dexamethasone. Acute Anemia on chronic, unclear etiology, possibly secondary to GI bleed: Admission hemoglobin 8.3 and is down to 6.5. Differential diagnosis does include angiodysplasia, malignancy, ulcerations, peptic ulcer disease, H. pyloriinfection. She should undergo an upper endoscopy to evaluate upper GI tract. She was explained alternatives, risk, benefits include not withstanding bleeding, infection, sepsis, perforation, need for emergent urgent . She have an ASA of 3 Charges/Coding Visit Charges Inpatient E&M: 21986 Init Hosp L3 04/02/23 1706 <Electronically signed by Mathew Orellana DO> Cosigner Signature (if applicable): CC: Dr. Alisa Mathew MD; Dr. Claudine Durán MD; Dr. Laine Veras MD~ Signed [facility] Work Phone: 1(320) 545-569302-12-2024 Procedure [facility] 04-02-2023 Procedure [facility]02-11-2024 Miscellaneous Notes* Telephone Encounter - Claudine Durán MD - 04/01/2023 4:36 PM EST See MyChart reply [facility] Progress note Author Alisa Mathew [facility] April 01, 2023 12:08pm Note Date/Time April 01, 2023 6:46am [facility] Medical Records Department [address] [place] [address] Progress Note - Hospitalist 04/01/23641 MR#: [id number] Acct: [id number] Name: HAYDEE BUSTAMANTE Rep #:[id number] : 1945 77 From: Alisa Mathew MD PCP: Dr. Claudine Durán MD Status:AD M IN Location: [place] [address]- Reason for Visit Reason for Visit: Diagnoses Cellulitis, unspecified (03/31/23) Rheumatoid arthritis, unspecified (03/31/23) Weakness (03/31/23) Localized edema (03/31/23) Personal history of other venous thrombosis and embolism (03/31/23) Subjective Subjective Patient with improvement to bilateral lower extremity swelling, right less swollen than left however and general serous weeping has also lessened. Patientstill with notable tenderness palpation right lower extremity worse than left. Discussed with patient unfortunately this a.m. hemoglobin decreased to 6.5 with plan for PRBC administration and workup for etiology of drop with possible need for GI evaluation if guaiac positive. Discussed plan of care at this time whichincluded clears now with n.p.o. status at midnight and transition to IV Protonix. Plan for continued serial H&H's. Hold on Coumadin and Lovenox at this time but given recent history of VTE noted to patient may require addition of heparin drip depending on timeline. Discussed with patient also planned addition of duplex ultrasounds as patient was subtherapeutic upon her presentation as lower extremity pain could also be coupled with a new clot in the leg. Patient denies fevers, chills, nausea, emesis, abdominal pain, chest pain or dyspnea. Objective Data Objective Data Vital Signs: Vital Signs Temp Pulse Resp BP Pulse Ox O2 Del Method 98.5 F 78 18 104/60 98 Room Air 04/01/23 02:00 04/01/23 02:00 04/01/23 02:00 04/01/23 02:00 04/01/23 02:00 04/01/23 02:00 Oxygen Delivery Method Room Air Weight: 119 lb 4.321 oz Body Mass Index (BMI) 21.1 Intake & Output: Intake and Output for Last 24 Hours 03/30/23 03/31/23 04/01/23 23:59 23:59 23:59 Intake Total 550 / 550 150 / 150 Balance 550 / 550 150 / 150 Lab / Micro Data 04/01/23 05:14 04/01/23 05:14 Labs: Laboratory Results - last 24 hr 03/31/23 18:12: WBC 19.4 H, RBC 2.87 L, Hgb 8.3 L, Hct 24.9 L, MCV 86.8, MCH 28.9, MCHC 33.3, RDW Std Deviation 75.1 H, RDW Coeff of Catarino 24.1 H, Plt Count 95L, MPV 10.4, Immature Gran % (Auto) 1.000 H, Neut % (Auto) 90.8 H, Lymph % (Auto) 3.0 L, [place] % (Auto) 5.0, Eos % (Auto) 0.1, Baso % (Auto) 0.1, Absolute Neuts (auto) 17.6 H, Absolute Lymphs (auto) 0.59 L, Nucleated RBC % 0, Differential Comment SCANNED, Platelet Estimate MOD DEC, Anisocytosis 2+, Microcytosis 1+, Macrocytosis 1+, ESR 7, PT 16.0 H, INR 1.3, Sodium 134 L, Potassium 3.2 L, Chloride 99, Carbon Dioxide 29.0, Anion Gap 6, BUN 31 H, Creatinine 0.75, Estim Creat Clear Calc 50.26, Est GFR (MDRD) Af Amer 96, Est GFR (MDRD) Non-Af 80, BUN/Creatinine Ratio 41.2 H, Glucose 108 H, Lactic Acid 1.4, Calcium 7.8 L, Total Creatine Kinase 125, C-React Prot Ext Range 35.90 H, B-Natriuretic Peptide 97.8 04/01/23 05:14: WBC 11.7 H, RBC 2.30 L, Hgb 6.5 L, Hct 19.8 L, MCV 86.1, MCH 28.3, MCHC 32.8, RDW Std Deviation 75.0 H, RDW Coeff of Catarino 24.4 H, Plt Count 61L, MPV 10.2, Immature Gran % (Auto) 0.900, Neut % (Auto) 88.5 H, Lymph % (Auto) 4.7 L, [place] % (Auto) 5.6, Eos % (Auto) 0.2, Baso % (Auto) 0.1, Absolute Neuts (auto) 10.3 H, Absolute Lymphs (auto) 0.55 L, Nucleated RBC % 0, PT 18.3 H, INR 1.5, Sodium 135 L, Potassium 3.0 L, Chloride 101, Carbon Dioxide 29.0, Anion Gap5, BUN 27 H, Creatinine 0.49 L, Estim Creat Clear Calc 50.26, Est GFR (MDRD) Af Amer 158, Est GFR (MDRD) Non-Af 130, BUN/Creatinine Ratio 55.0 H, Glucose 89, Calcium 7.0 L, Magnesium 2.1, Total Bilirubin 1.60 H, AST 23, ALT 42, Alkaline Phosphatase 87, Total Protein 4.5 L, Albumin 2.0 L, Globulin 2.5, Albumin/Globulin Ratio 0.8 L Radiography Diagnostic Testing: Radiology Impression Tibia/Fibula X-Ray 03/31/23 17:49 IMPRESSION: No acute radiographic abnormalities. Electronically Signed: Michael Galarza MD at 19:30 EST Reading Location ID and State: [place] / [place] Tel , Service support , Chest X-Ray 03/31/23 18:32 IMPRESSION: No change from prior study. Electronically Signed: Michael Galarza MD at 19:29 EST Reading Location ID and State: [employer] / [place] Tel , Service support , Ankle X-Ray 03/31/23 22:10 IMPRESSION: Soft tissue swelling without obvious fracture. Electronically Signed: Michael Galarza MD at 23:54 EST , Physical Exam Narrative Physical Examination: General: awake, alert, oriented to self, place and some recent activities, remains cooperative, seated upright in the PCU bed, NAD, fatigued, does not recall several aspects of her most recent admission prior but recalls hospitalist. Skin: normal color, turgor, no icterus, cyanosis except for various staged ecchymoses noted, BL LE with various denuded small regions likely secondary to stasis blisters with no current serous drainage but also some scattered petechiae, right lower extremity with circumferential area of stasis disease andlikely overlapping erythema, she notes its improved. HEENT: AT/NC, EOMI, PERRLA, MMM. Lungs: Mildly diminished, decreased strong respiratory inspiratory effort, no distress, no rales, ronchi or wheezing; Heart: Regular rate and rhythm; no gallop, rub audible. Abdomen: soft, NTTP, ND, normal BS. Extremities: no cyanosis, no clubbing, see skin, right lower extremity notably tender to palpation but no marked pitting edema compared to left lower extremitywith pedal to distal soto 1+ pitting edema. Neurological: patient awake, alert, oriented as noted, cognitive function intactto most questioning but she is not recalling several aspects of her most recent admission, cranial nerves grossly normal, moving all 4 extremities, strength moderately globally creased secondary to acute presentation. Psychiatric: affect appears appropriate, talkative but having difficulties recalling some of the aspects of her recent admission of note, no acute evidenceof depressive or anxiety feelings. Assessment & Plan Assessment/Plan (1) Cellulitis: PLAN: Plan The patient is a 77 y/o F w/ PMHx: GERD, Rheumatoid Arthritis, Hx VTE (DVT, PE),Recent diagnosis Histoplasmosis, recent 03/21/33 evaluation at [facility] with transfer to [facility] secondary to concerns for complex bowel obstruction treated conservative, concerns for colitis administered cipro/flagyl, disseminated histoplasmosis treated with itraconazole, just prior to her presentation diagnosed COVID-19 with hypoxia treated with remdesivir and dexamethasone, temporaryhold on her ARB/HCTZ secondary to rise in her Cr in addition to noted treated severe aortic stenosis and moderate pericardial effusion monitored without surgery with restart on her coumadin therapy with planned outpatient work-up, discharged from [facility] 03/25/23 with decline upon return to home, inability to safely care for self prompting presentation to the [facility] ED on 03/26/23 for SNF placement needs but improved and declined SNF placement again who now re-presents to the [facility] ED on 03/31/23 with history of worsened BL LE edema, weeping serous fluid and RLE redness/pain. #1. Right lower extremity Cellulitis with bilateral lower extremity swelling and serous drainage noted: Admitted to PCU, will maintain on IV Levaquin initiated upon admission given allergy history, currently no discharge but if onset low threshold to obtain wound culture/MRSA wound, ESR 7, CRP 35.90, plan repeat CBC in AM, continue affected extremity elevation above heart when seated and in bed, monitor erythema outline with VS checks, duplex ultrasound requestedgiven recent history upon presentation of subtherapeutic INR. #2. Acute Anemia on chronic, unclear etiology, questionable GI bleed: Admissionhemoglobin 8.3, vacillated during prior admission ranging 7-8, given drop requested PRBC administration, transition to clear liquids with n.p.o. status after midnight, guaiac requested as well as iron studies, maintained on IV PPI, will obtain serial H&H assessments, temporally holding Coumadin and Lovenox therapy however given recent history of VTE may need to initiate heparin drip and continue closely monitor. Will have Lasix in between PRBC units given concern for worsened lower extremity swelling with pending workup. Guaiac requested. If guaiac is positive then would initiate GI consultation. #3. Recent VTE: Patient with history DVT, PE, supposed to be on Coumadin however upon presentation her INR was subtherapeutic, initiated on Lovenox in addition to continued Coumadin with INR trending however as noted acute on chronic anemia 04/01/2023 with temporary hold on these agents with investigation for possible GI bleed. Given this history and as noted right lower extremity swelling with duplex bilateral lower extremity pending may need to consider starting heparin drip while closely monitoring hemoglobin with ongoing workup #2. #4. Increasing bilateral extremity edema, unclear etiology: Will attempt Daniella wraps if patient able to tolerate, elevate lower extremity, echocardiogram requested per admitting physician, monitor ADAIR, judicious fluids given #1, #2 pending PRBC administration as noted, plan to administer Lasix in between PRBC units pending BP assessments. Duplex ultrasound bilateral lower extremity ordered as well given recent history of VTE not therapeutic on her Coumadin thuscertainly could be an etiology as well. #5. Acute on chronic thrombocytopenia, possibly related with acute presentation#1: Admission platelet 95, repeat 11/01/24 platelet 61, previous admission lowest 134, will continue to closely monitor especially given VTE history and temporally holding Coumadin/Lovenox but may necessitate heparin drip as noted above. #6. Hypokalemia: Admission K+ 3.0, magnesium 2.1, supplementation given, repeatlevel in AM. #7. Adult failure to thrive, multifactorial, frequent falls with recent increased right ankle pain: Patient with significant failure to thrive, serial admissions including to tertiary facilities with several ongoing issues as notedabove, plain film of the right ankle obtained with only soft tissue swelling, encouraged elevation, icing as needed, PT/OT/case management consult for discharge planning, follow-up with podiatry at discharge as needed. #8. Recent COVID-19 Viral Syndrome/COPD: Resolved acute illness, treated duringthat acute presentation with treated with remdesivir and dexamethasone, maintained on ATC budesonide therapy, PRN albuterol, encourage HOB, IS. #9. Recent disseminated histoplasmosis: Continue itraconazole solution 2 times daily and encouraged continued follow-up with Dr. Hart in 3 months #10. Recent Suspected Bowel Performation/Colitis: Treated with course ciprofloxacin and Flagyl regimen, follow-up as previously arranged per Surgery team [facility]. #11. Rheumatoid arthritis: Patient outpatient on Humira, methotrexate and leucovorin however this has been continued to be held secondary to a recent hospitalization in [facility] with disseminated histoplasmosis and concern for bowel perforation/colitis, resume once allowed per infectious disease. #12. Valvular heart disease with aortic stenosis with recent diagnosis moderatepericardial effusion: Recent evaluation in [facility], no intervention but close observation for moderate pericardial effusion noted at that time, continueto follow-up outpatient with cardiology and CT surgery team as needed. #13. GERD: As noted transitioned to IV PPI given acute on chronic anemia, investigating etiology. #14. Hypertension: Recent presentation with hold on irbesartan/hydrochlorothiazide until repeat renal function assessment and BP trending. Upon current presentation BP low normal range. Will continue to hold regimen. #15. Former tobacco use: Encourage continued tobacco cessation. #16. DVT prophylaxis: SCDs, holding coumadin/lovenox as noted with acute on chronci anemia pending investigation but low threshold to add heparin drip. #17. CODE status: Full Code status. Charges/Coding Visit Charges Inpatient E&M: 94751 Subs Hosp L3 04/01/23 1208 <Electronically signed by Alisa Mathew MD> Cosigner Signature (if applicable): CC: ~ Signed [facility] Work Phone: [phone] 120-715602-10-2024 History and physical note Author Laine Veras [facility] March 31, 2023 8:59pm Note Date/Time March 31, 2023 8:20pm [facility] Medical Records Department [address] [place] [address] H&P Exam - Hospitalist 03/31/232011 MR#: [id number] Acct: [id number] Name: HAYDEE BUSTAMANTE Rep #:[id number] : 1945 77 From: Laine Veras MD PCP: Dr. Claudine Durán MD Status:AD M IN Location: [place] [id number] HPI - General General Date of Admission: 03/31/23 Date of Service: 03/31/23 Chief Complaint: BLE edema and weeping HPI Narrative HAYDEE BUSTAMANTE, is a 77-year-old female history of COPD, Severe . GERD. DVT and PEon Coumadin, histoplasmosis of the lung, RA who presented to [facility] ED 03/31/2023 with bilateral lower extremity edema. She was seen here 03/28/2023 with lower extremity edema. She was initially seen here 03/26/2023 for shortness of breath and inability to care for herself at home after a recent hospital stay at [facility] from which she was discharged on Cipro and Flagyl as well as itraconazole and she was treated also with remdesivir and dexamethasone for COVID-19. Patient was evaluated in the ED and due to her failure to thrive and inability to care for self she was admitted. Patient did well and was feeling better the following day and was discharged home 03/27. She Re-presented to the ED 03/28 with bilateral lower extremity edema, she was not hypoxic and her labs were essentially unchanged from prior so she was placed on 20 mg of Lasix daily and strongly advised to follow-up with her primary care physician. She started the Lasix yesterday but re-presented today for lower extremity edema. Reportedly patient was at home and was nervous about getting up from her commode so sat there for a long time, when she did finally get up and was ambulating across the room her cane slipped and she fell on her bottom, she scooted to where her friend could see her and waited for her friend to come because she did not think she could get up off the floor. Patient brought to ED. In the ED with blood cell count slightly higher than previous at 19.4 and potassium slightly low at 3.2 but lab workup fairly unremarkable otherwise and patient vitally stable in ED. She was noted on physical exam to have right lower extremity cellulitis and tib-fib x-ray obtained which was unremarkable, she was given some IV fluids and a dose of clindamycin and hospitalist contactedfor admission due to her difficulty caring for herself, lower extremity edema, and lower extremity cellulitis. Patient evaluated at bedside with friend present. Patient reports that since she was most recently in the ED she has continued to have lower extremity swelling and took 1 dose of Lasix yesterday and 1 today, main complaint is the weeping of her legs because she has had to constantly change her pants, did report a little bit of confusion 2 days ago buthas not had that since, denies fevers or chills, reports some chronic shortness of breath without change, denies changes in bowel or bladder, patient only complained of the bilateral lower extremity edema but when looking at legs and asking about her cellulitis she has difficulty with timeline, but thinks it has been slowly progressive over the past couple of days, has some pain in the rightankle as well but she is not sure if she hurt it when she fell or not. Also has some petechiae of the bilateral lower extremities that have developed sometime over the past couple of days. Additionally discussed with patient if she still taking Cipro and Flagyl and itraconazole and she didn't remember if she's been taking cipro and flagyl and itraconazole she hasn't been taking because she can't get the liquid form. She is unsure if she's taking her coumadin [facility] Medical History (Updated 03/31/23 @ 20:[address] Laine Veras MD) Colitis COPD (chronic obstructive pulmonary disease) DVT (deep venous thrombosis) Former smoker Histoplasmosis Pulmonary embolism Rheumatoid arthritis Home Medications adalimumab 40 mg/0.4 mL subcutaneous pen kit (Humira(CF) Pen) 40 mg subcut Q14D 03/19/23 [History Last Taken Unknown] albuterol sulfate 90 mcg/actuation aerosol inhaler 2 puff inhalation Q4H PRN shortness of breath or wheezing 03/19/23 [History Last Taken Unknown] budesonide-formoterol HFA 160 mcg-4.5 mcg/actuation aerosol inhaler (Symbicort) 2 puff inhalation Q12H 03/19/23 [History Last Taken Unknown] fluticasone propionate 50 mcg/actuation nasal spray,suspension 1 spray intranasal DAILY allergies 03/19/23 [History Last Taken Unknown] gabapentin 300 mg capsule 300 mg PO Q12H pain 03/19/23 [History Last Taken Unknown] irbesartan 150 mg-hydrochlorothiazide 12.5 mg tablet 1 tab PO DAILY 03/19/23 [History Last Taken Unknown] multivitamin (Daily Multi-Vitamin tablet) 1 tab PO DAILY supplement 03/19/23 [History Last Taken Unknown] naproxen 500 mg tablet 500 mg PO Q12H 03/19/23 [History Last Taken Unknown] pantoprazole 40 mg tablet,delayed release 40 mg PO DAILY 03/19/23 [History Last Taken Unknown] potassium chloride 20 mEq tablet,extended release(part/cryst) (Klor-Con M) 20 meq PO BID 03/19/23 [History Last Taken Unknown] tiotropium bromide 2.5 mcg/actuation mist for inhalation (Spiriva Respimat) 2 puff inhalation Q24H 03/19/23 [History Last Taken Unknown] vitamins A,C,G-qgcj-bwfxsq 2,148 mcg-113 mg-45 mg-17.4 mg tablet (PreserVision AREDS) 2 tab PO BID 03/19/23 [History Last Taken Unknown] warfarin 5 mg tablet 5 mg PO .COMPLEX 03/19/23 [History Last Taken Unknown] cholecalciferol (vitamin D3) 25 mcg (1,000 unit) capsule 25 mcg PO DAILY 03/26/23 [History Last Taken Unknown] ciprofloxacin HCl 500 mg tablet 500 mg PO Q12H 03/26/23 [History Last Taken Unknown] dexamethasone 6 mg tablet 6 mg PO DAILY 03/26/23 [History Last Taken Unknown] itraconazole 10 mg/mL oral solution 100 mg PO Q8H unknown 03/26/23 [History Last Taken Unknown] loperamide 2 mg capsule (Anti-Diarrheal (loperamide)) 4 mg PO TID diarrhea 03/26/23 [History Last Taken Unknown] metronidazole 500 mg tablet 500 mg PO TID 03/26/23 [History Last Taken Unknown] vitamin A-vitamin C-vit E-min tablet (Ocutabs tablet) 2 tab PO DAILY 03/26/23 [History Last Taken Unknown] furosemide 20 mg tablet (Lasix) 20 mg PO DAILY 14 days #14 tabs 03/28/23 [Rx Last Taken Unknown] Allergy/AdvReac Type Severity Reaction Status Date / Time Penicillins Allergy Severe Anaphylaxis Verified 03/28/23 16:32 Surgical History History of embolic filter insertion Hx of foot surgery Social History Smoking Status: Former smoker ROS ROS Narrative General: Denies fever/chills HENT: Denies headache, denies stuffy nose, denies sore throat EYES: Denies changes in vision Resp: Denies cough, chronic shortness of breath Cardiac: Denies chest pain GI: Denies abdominal pain, denies changes in bowel, denies nausea/vomiting : Denies changes in urination Extremity: Increased swelling in bilateral lower extremities MSK: Some general weakness Neuro: Denies any numbness/tingling Heme: Denies any bleeding or bruising Skin: Some right lower extremity erythema and some petechiae in both lower extremities Psychiatric: No complaints voiced Vital Signs Vital Signs Vital Signs: 03/31/23 16:48 03/31/23 17:01 Temperature 98.3 F Temperature Source Oral Pulse Rate 86 Respiratory Rate 17 Respiratory Pattern Normal Blood Pressure 105/46 L Blood Pressure Mean 65 Pulse Ox 100 Weight Weight: 60.1 kg Body Mass Index (BMI) 23.4 Physical Exam Narrative General: Alert, no apparent distress HEENT: Atraumatic, normocephalic Eyes: Anicteric, normal conjunctiva, extraocular movements grossly intact Neck: Supple Respiratory: No rhonchi's or wheezes, normal respiratory effort Cardiovascular: Regular rate and rhythm GI: Soft, nontender, nondistended Extremities: 2+ lower extremity edema bilaterally Musculoskeletal: Moving all extremities, some pain with moving right ankle moreso than left Neuro: No overt focal neurological deficits Skin: Petechiae in bilateral lower extremities but R ankle and soto w/ patchy erythema, both lower extremities with weeping and superficial abrasions, no purulence appreciated Psych: Cooperative Results Lab / Micro Data 03/31/23 18:12 03/31/23 18:12 Labs: Laboratory Results - last 24 hr 03/31/23 18:12: WBC 19.4 H, RBC 2.87 L, Hgb 8.3 L, Hct 24.9 L, MCV 86.8, MCH 28.9, MCHC 33.3, RDW Std Deviation 75.1 H, RDW Coeff of Catarino 24.1 H, Plt Count 95L, MPV 10.4, Immature Gran % (Auto) 1.000 H, Neut % (Auto) 90.8 H, Lymph % (Auto) 3.0 L, [place] % (Auto) 5.0, Eos % (Auto) 0.1, Baso % (Auto) 0.1, Absolute Neuts (auto) 17.6 H, Absolute Lymphs (auto) 0.59 L, Nucleated RBC % 0, Differential Comment SCANNED, Platelet Estimate MOD DEC, Anisocytosis 2+, Microcytosis 1+, Macrocytosis 1+, PT 16.0 H, INR 1.3, Sodium 134 L, Potassium 3.2 L, Chloride 99, Carbon Dioxide 29.0, Anion Gap 6, BUN 31 H, Creatinine 0.75,Estim Creat Clear Calc 50.26, Est GFR (MDRD) Af Amer 96, Est GFR (MDRD) Non-Af 80, BUN/Creatinine Ratio 41.2 H, Glucose 108 H, Lactic Acid 1.4, Calcium 7.8 L, Total Creatine Kinase 125, B-Natriuretic Peptide 97.8 Imaging Radiology Impression Tibia/Fibula X-Ray 03/31/23 17:49 IMPRESSION: No acute radiographic abnormalities. Electronically Signed: Michael Galarza MD at 19:30 EST , Chest X-Ray 03/31/23 18:32 IMPRESSION: No change from prior study. Electronically Signed: Michael Galarza MD at 19:29 EST , Assessment & Plan Assessment/Plan (1) Cellulitis: (2) Leg edema: (3) Generalized weakness: (4) History of DVT (deep vein thrombosis): (5) Rheumatoid arthritis: PLAN: Plan #RLE cellulitis -Sounds to have been slowly progressive over past several days, likely due to infection introduced from one of her superficial abrasions -WBC slightly higher than previous at 19.4 but CK and lactic normal, no SHIELA or other endorgan damage -Pt clinically appears stable -Anaphylactic reaction to penicillin, will give Levaquin -No purulence so we will hold off on vancomycin unless patient not improving andcan consider broadening with MRSA coverage -Will gently hydrate with IV fluids -Wound nurse consult -Elevate extremities -Will also perform right lower extremity duplex as patient subtherapeutic on herCoumadin though this does appear to be more cellulitic in nature -Will check ESR and CRP #Fall and difficulty caring for self -Patient reports falling on her bottom, she is unsure if she hurt her right ankle but does have some right ankle pain, able to move ankle that is some tenderness more laterally than medially -She is unsure timeline of how long her ankle has been painful but up until her fall today she had been walking with a cane so may be secondary to fall/injury -Will obtain x-ray -Pain control -PT/OT -Can consider podiatry consult pending results and progress #Increasing bilateral lower extremity edema -Elevate lower extremities -Can consider daniella wraps if tolerated -Echocardiogram -Daily weights, I's and O's -Giving gentle IVF w/ infection -Ultimately will need to resume Lasix once pt improving #Recent concern for bowel perf treated conservatively -Treated at [facility] -s/p cipro and flagyl, no present abd complaints # Disseminated histoplasmosis -Continue itraconazole twice daily -Patient to follow-up with a Dr. Hart in 3 months # Recent COVID-19 -Tested positive here end of February -No resp complaints #Hx COPD -Continue inhalers #Hx and mod pericardial effusion -Seen at [facility] and pt advised to f/u outpt -Will need to f/u after d/c for further monitoring and management #Hx PE -Resumed on coumadin -Daily PT/INR -INR subtherapeutic in ED and pt unsure if she's taking it # Chronic anemia -8.3, similar to previous, appears to be at baseline -Continue to monitor #Thrombocytopenia -As intermittently had somewhat low values -Could be due to underlying infection -CBC in the a.m., continue to trend #Hypokalemia -Possibly secondary to Lasix -Will replace #RA -Previously on humira, methotrexate, leucovorin -Will hold at this time given active treatment for her disseminated histoplasmosis and bowel perforation #GERD -Continue PPI #DVT ppx: On Coumadin Laine Veras MD #DVT ppx: Lovenox subcu while awaiting therapeutic Coumadin Laine Veras MD Time spent in the patient's overall evaluation,decision-making process, review of diagnostic data, adjustment of management, discussion with other providers, nursing nursing and ancillary staff involved in patient's care documentation, 78Minutes Charges/Coding Visit Charges Inpatient E&M: 50522 Init Hosp L3 03/31/232058 <Electronically signed by Laine Veras MD> Cosigner Signature (if applicable): CC: Dr. Claudine Durán MD; Dr. Laine Veras MD~ Signed [facility] Work Phone: [phone]) 881-719902-10-2024 Discharge summary Author Martín Clemente [facility] March 31, 2023 8:00pm Note Date/Time March 31, 2023 5:48pm [facility] Medical Records Department [address] [place] [id number] Emergency Department Summary 03/31/23 MR#: [id number] Acct: [id number] Name: HAYDEE BUSTAMANTE Rep #:[id number] : 1945 77 From: Martín Cornejo DO PCP: Dr. Claudine Durán MD Status:RE G ER Location: ED HPI <MEENU Leger - Last Filed: 03/31/23 19:55> History of Present Illness Chief Complaint: Edema Narrative Narrative: Patient is a 77-year-old female with a long history of lower leg edema, history of COPD, patient is on Coumadin, histoplasmosis, presenting to the [facility] apartment for failure to thrive, worsening swelling to bilateral lower extremities, right leg redness. Patient was recently admitted March 26, then released home. Patient is struggling at home to take care of herself. Patient fell today could not get up, and was on the ground for multiple hours. Patient states that she has worsening pain to her right leg, she is having difficulty with her medications. Patient states that she feels like she might need admittedfor further workup and as well to go to a facility for rehab. [facility] <MEENU Leger - Last Filed: 03/31/23 19:55> [facility] Medical History Colitis COPD (chronic obstructive pulmonary disease) DVT (deep venous thrombosis) Former smoker Histoplasmosis Pulmonary embolism Rheumatoid arthritis Home Medications adalimumab 40 mg/0.4 mL subcutaneous pen kit (Humira(CF) Pen) 40 mg subcut Q14D 03/19/23 [History Last Taken Unknown] albuterol sulfate 90 mcg/actuation aerosol inhaler 2 puff inhalation Q4H PRN shortness of breath or wheezing 03/19/23 [History Last Taken Unknown] budesonide-formoterol HFA 160 mcg-4.5 mcg/actuation aerosol inhaler (Symbicort) 2 puff inhalation Q12H 03/19/23 [History Last Taken Unknown] fluticasone propionate 50 mcg/actuation nasal spray,suspension 1 spray intranasal DAILY 03/19/23 [History Last Taken Unknown] gabapentin 300 mg capsule 300 mg PO Q12H 03/19/23 [History Last Taken Unknown] irbesartan 150 mg-hydrochlorothiazide 12.5 mg tablet 1 tab PO DAILY 03/19/23 [History Last Taken Unknown] itraconazole 100 mg capsule 100 mg PO Q8H 03/19/23 [History Last Taken Unknown] leucovorin calcium 5 mg tablet 15 mg PO DAILY 03/19/23 [History Last Taken Unknown] methotrexate sodium 2.5 mg tablet 2.5 mg PO QWEEK 03/19/23 [History Last Taken Unknown] multivitamin (Daily Multi-Vitamin tablet) 1 tab PO DAILY 03/19/23 [History Last Taken Unknown] naproxen 500 mg tablet 500 mg PO Q12H 03/19/23 [History Last Taken Unknown] pantoprazole 40 mg tablet,delayed release 40 mg PO DAILY 03/19/23 [History Last Taken Unknown] potassium chloride 20 mEq tablet,extended release(part/cryst) (Klor-Con M) 20 meq PO BID 03/19/23 [History Last Taken Unknown] tiotropium bromide 2.5 mcg/actuation mist for inhalation (Spiriva Respimat) 2 puff inhalation Q24H 03/19/23 [History Last Taken Unknown] vitamins A,C,J-knfi-lcxcmb 2,148 mcg-113 mg-45 mg-17.4 mg tablet (PreserVision AREDS) 2 tab PO BID 03/19/23 [History Last Taken Unknown] warfarin 5 mg tablet 5 mg PO .COMPLEX 03/19/23 [History Last Taken Unknown] cholecalciferol (vitamin D3) 25 mcg (1,000 unit) capsule 25 mcg PO DAILY 03/26/23 [History Last Taken Unknown] ciprofloxacin HCl 500 mg tablet 500 mg PO Q12H 03/26/23 [History Last Taken Unknown] dexamethasone 6 mg tablet 6 mg PO DAILY 03/26/23 [History Last Taken Unknown] itraconazole 10 mg/mL oral solution 200 mg PO BID 03/26/23 [History Last Taken Unknown] loperamide 2 mg capsule (Anti-Diarrheal (loperamide)) 4 mg PO TID 03/26/23 [History Last Taken Unknown] metronidazole 500 mg tablet 500 mg PO TID 03/26/23 [History Last Taken Unknown] vitamin A-vitamin C-vit E-min tablet (Ocutabs tablet) 2 tab PO DAILY 03/26/23 [History Last Taken Unknown] furosemide 20 mg tablet (Lasix) 20 mg PO DAILY 14 days #14 tabs 03/28/23 [Rx Last Taken Unknown] Allergy/AdvReac Type Severity Reaction Status Date / Time Penicillins Allergy Severe Anaphylaxis Verified 03/28/23 16:32 Surgical History History of embolic filter insertion Hx of foot surgery Social History Smoking Status: Former smoker ROS <MEENU Leger - Last Filed: 03/31/23 19:55> ROS ED ROS Narrative Constitutional: No fever, no chills. Positive for weakness HEENT: No sore throat. No neck pain. No loss of vision. No rhinorrhea. Cardiovascular: No chest pain. No palpitations. No pedal edema. Respiratory: No cough, no shortness of breath. Abdominal: No abdominal pain. No nausea. No vomiting. Genitourinary: No dysuria. No hematuria. Musculoskeletal: No myalgias. No arthralgias. Positive for bilateral lower legedema, positive for right leg redness and pain Neurologic: No headaches. No dizziness. No lightheadedness. Skin: No rash. No change in color. Psychiatric: No depression. No anxiety. EXAM <MEENU Leger - Last Filed: 03/31/23 19:55> Physical Exam Narrative Exam Narrative: Afebrile. Vital signs noted. HEENT: Normocephalic. Atraumatic. PERRL, EOMI. Neck soft and supple. No pointtenderness or step off. Patient is oral mucosa was dry. Cardiovascular: Regular rate and rhythm. No murmurs, rubs, or gallops appreciated. Respiratory: No tachypnea. Lungs clear to auscultation bilaterally. Gastrointestinal: Abdomen soft, nontender, with normoactive bowel sounds. No rebound or guarding. Neurological: Awake. Alert. Nonfocal, nonlateralizing. Skin: No rash. Normal color. No pallor. Musculoskeletal: Patient has +2-3 pitting edema to bilateral feet, patient's right leg is significantly more erythematous than the right. The right leg and foot has some redness, warmth, pain on palpation. This is concerning for cellulitis.. Full range of motion extremities. Const Vital Signs: 03/31/23 16:48 03/31/23 17:01 Temperature 98.3 F Temperature Source Oral Pulse Rate 86 Respiratory Rate 17 Respiratory Pattern Normal Blood Pressure 105/46 L Blood Pressure Mean 65 Pulse Ox 100 Positive well nourished and well developed General Appearance ED: well developed <Dr. Martín Cornejo DO - Last Filed: 03/31/23 20:00> Physical Exam Const Vital Signs: 03/31/23 16:48 03/31/23 17:01 Temperature 98.3 F Temperature Source Oral Pulse Rate 86 Respiratory Rate 17 Respiratory Pattern Normal Blood Pressure 105/46 L Blood Pressure Mean 65 Pulse Ox 100 MDM <Frederick Almazan MEENU - Last Filed: 03/31/23 19:55> [facility] Lab Data Labs: Laboratory Results - last 24 hr 03/31/23 18:12 WBC 19.4 H RBC 2.87 L Hgb 8.3 L Hct 24.9 L MCV 86.8 MCH 28.9 MCHC 33.3 RDW Std Deviation 75.1 H RDW Coeff of Catarino 24.1 H Plt Count 95 L MPV 10.4 Immature Gran % (Auto) 1.000 H Neut % (Auto) 90.8 H Lymph % (Auto) 3.0 L [place] % (Auto) 5.0 Eos % (Auto) 0.1 Baso % (Auto) 0.1 Absolute Neuts (auto) 17.6 H Absolute Lymphs (auto) 0.59 L Nucleated RBC % 0 Differential Comment SCANNED Platelet Estimate MOD DEC Anisocytosis 2+ Microcytosis 1+ Macrocytosis 1+ PT 16.0 H INR 1.3 Sodium 134 L Potassium 3.2 L Chloride 99 Carbon Dioxide 29.0 Anion Gap 6 BUN 31 H Creatinine 0.75 Estim Creat Clear Calc 50.26 Est GFR (MDRD) Af Amer 96 Est GFR (MDRD) Non-Af 80 BUN/Creatinine Ratio 41.2 H Glucose 108 H Lactic Acid 1.4 Calcium 7.8 L Total Creatine Kinase 125 B-Natriuretic Peptide 97.8 Radiography Diagnostic Testing: Clinical Impression(s) from Imaging Studies Tibia/Fibula X-Ray 03/31/23 17:49 IMPRESSION: No acute radiographic abnormalities. Electronically Signed: Michael Galarza MD at 19:30 EST , Chest X-Ray 03/31/23 18:32 IMPRESSION: No change from prior study. Electronically Signed: Michael Galarza MD at 19:29 EST , Treatment and Re-Evaluation :: Patient appears to be in no obvious respiratory distress, patient's vital signs are stable, patient is alert and orient x 4. Presenting to the emerged department for worsening weakness, failure to thrive, pain to the right leg. Differential diagnosis includes sepsis, failure to thrive, rhabdomyolysis, cellulitis of the right lower extremity. Patient has low probability of any DVTsecondary to being on Coumadin. Patient will receive basic laboratory values including lactic acid as well as CPK. X-rays of the chest and tibia-fibula willbe completed. After talking the patient, the plan will be to admit the patient for failure to thrive. I will also treat the patient concerning for any cellulitis. Patient's laboratory values showed a leukocytosis with a white blood count of 19.4, hemoglobin is 8.3, patient is chronically anemic. PT is 16 with an INR 1.3, this is subtherapeutic for the patient is supposed to be on Coumadin. Patient's potassium 3.2, kidney function within normal limits. BNP is negative,patient's CK was unremarkable. Patient's chest x-ray interpreted by ER physician shows no change, patient's tibia-fibula was unremarkable. Patient wasstarted on IV clindamycin secondary to the anaphylactic reaction to penicillin. Patient will need to be admitted to the hospital for failure to thrive, right lower leg cellulitis. I discussed this with the hospitalist. <Dr. Martín Cornejo, DO - Last Filed: 03/31/23 20:00> [facility] Narrative Medical decision making narrative: Patient appears to be in no obvious respiratory distress, patient's vital signs are stable, patient is alert and orient x 4. Presenting to the emerged department for worsening weakness, failure to thrive, pain to the right leg. Differential diagnosis includes sepsis, failure to thrive, rhabdomyolysis, cellulitis of the right lower extremity. Patient has low probability of any DVTsecondary to being on Coumadin. Patient will receive basic laboratory values including lactic acid as well as CPK. X-rays of the chest and tibia-fibula willbe completed. After talking the patient, the plan will be to admit the patient for failure to thrive. I will also treat the patient concerning for any cellulitis. Patient's laboratory values showed a leukocytosis with a white blood count of 19.4, hemoglobin is 8.3, patient is chronically anemic. PT is 16 with an INR 1.3, this is subtherapeutic for the patient is supposed to be on Coumadin. Patient's potassium 3.2, kidney function within normal limits. BNP is negative,patient's CK was unremarkable. Patient's chest x-ray interpreted by ER physician shows no change, patient's tibia-fibula was unremarkable. Patient wasstarted on IV clindamycin secondary to the anaphylactic reaction to penicillin. Patient will need to be admitted to the hospital for failure to thrive, right lower leg cellulitis. I discussed this with the hospitalist. This patient was seen with a PA/SANITARY LANDFILL OPERATOR Individually assessed they patient including history and physical. I have reviewed everything on the chart that is availableand agree with the documentation provided by the PA/SANITARY LANDFILL OPERATOR including discussion about the assessment, treatment plan, discussion, and return precautions. 37-year-old female presenting with weakness. She has been falling at home. Shestates spent a long time on the toilet today and then when she got up and walkedshe fell. She states that she left her door locked for her friend so she can get in today. Differential as above. Lab workup ultimately shows a leukocytosis. She has cellulitis on the right lower extremity. I do not believe she has a DVT as she has been therapeutic up until today on her INR. Chest x-ray my interpretation shows no acute process. Radiologist interprets and agrees. Right tib-fib x-ray also negative. Cover the patient with clindamycin for cellulitis given her penicillin allergy. Patient states she is weak and needs placement. Patient for rehab. Will admit the patient. Impression: 1. right leg cellulitis 2. Debility 3. Falls 4. Leukocytosis Lab Data Attestation: I reviewed the patient's lab results. Labs: Laboratory Results - last 24 hr 03/31/23 18:12 WBC 19.4 H RBC 2.87 L Hgb 8.3 L Hct 24.9 L MCV 86.8 MCH 28.9 MCHC 33.3 RDW Std Deviation 75.1 H RDW Coeff of Catarino 24.1 H Plt Count 95 L MPV 10.4 Immature Gran % (Auto) 1.000 H Neut % (Auto) 90.8 H Lymph % (Auto) 3.0 L [place] % (Auto) 5.0 Eos % (Auto) 0.1 Baso % (Auto) 0.1 Absolute Neuts (auto) 17.6 H Absolute Lymphs (auto) 0.59 L Nucleated RBC % 0 Differential Comment SCANNED Platelet Estimate MOD DEC Anisocytosis 2+ Microcytosis 1+ Macrocytosis 1+ PT 16.0 H INR 1.3 Sodium 134 L Potassium 3.2 L Chloride 99 Carbon Dioxide 29.0 Anion Gap 6 BUN 31 H Creatinine 0.75 Estim Creat Clear Calc 50.26 Est GFR (MDRD) Af Amer 96 Est GFR (MDRD) Non-Af 80 BUN/Creatinine Ratio 41.2 H Glucose 108 H Lactic Acid 1.4 Calcium 7.8 L Total Creatine Kinase 125 B-Natriuretic Peptide 97.8 Radiography Diagnostic Testing: Clinical Impression(s) from Imaging Studies Tibia/Fibula X-Ray 03/31/23 17:49 IMPRESSION: No acute radiographic abnormalities. Electronically Signed: Michael Galarza MD at 19:30 EST Reading Location ID and State: [id number] / [employer] , Service support , Chest X-Ray 03/31/23 18:32 IMPRESSION: No change from prior study. Electronically Signed: Michael Galarza MD at 19:29 EST , Discharge Plan Dx/Rx/DC Orders Clinical Impression: Leg edema, Cellulitis, Weakness, Adult failure to thrive Disposition Disposition: Acute Care Hospital [facility] What to do if you have Problems For any increased pain, shortness of breath, bleeding, nausea or vomiting, chestpain, or any unexpected problems, contact your Primary Care Provider. Call [facility] ([phone]) or report to the closest Emergency Room. Call 911 if necessary. 03/31/231999 <Electronically signed by Martín Cornejo DO> Cosigner Signature (if applicable): 03/31/231954 <Electronically signed by Frederick SORTOC> CC: Dr. Claudine Durán MD ~ Signed [facility] Work Phone: [phone] Discharge summary Author Martín Cornejo [facility] March 31, 2023 8:00pm Note Date/Time March 31, 2023 5:48pm [facility] Medical Records Department [address] [place] [address] Emergency Department Summary 03/31/23 MR#: [id number] Acct: [id number] Name: HAYDEE BUSTAMANTE Rep #:[id number] : 1945 77 From: Martín Cornejo DO PCP: Dr. Claudine Durán MD Status:RE G ER Location: ED HPI <MEENU Leger - Last Filed: 03/31/23 19:55> History of Present Illness Chief Complaint: Edema Narrative Narrative: Patient is a 77-year-old female with a long history of lower leg edema, history of COPD, patient is on Coumadin, histoplasmosis, presenting to the [facility] apartment for failure to thrive, worsening swelling to bilateral lower extremities, right leg redness. Patient was recently admitted March 26, then released home. Patient is struggling at home to take care of herself. Patient fell today could not get up, and was on the ground for multiple hours. Patient states that she has worsening pain to her right leg, she is having difficulty with her medications. Patient states that she feels like she might need admittedfor further workup and as well to go to a facility for rehab. [facility] <MEENU Leger - Last Filed: 03/31/23 19:55> [facility] Medical History Colitis COPD (chronic obstructive pulmonary disease) DVT (deep venous thrombosis) Former smoker Histoplasmosis Pulmonary embolism Rheumatoid arthritis Home Medications adalimumab 40 mg/0.4 mL subcutaneous pen kit (Humira(CF) Pen) 40 mg subcut Q14D 03/19/23 [History Last Taken Unknown] albuterol sulfate 90 mcg/actuation aerosol inhaler 2 puff inhalation Q4H PRN shortness of breath or wheezing 03/19/23 [History Last Taken Unknown] budesonide-formoterol HFA 160 mcg-4.5 mcg/actuation aerosol inhaler (Symbicort) 2 puff inhalation Q12H 03/19/23 [History Last Taken Unknown] fluticasone propionate 50 mcg/actuation nasal spray,suspension 1 spray intranasal DAILY 03/19/23 [History Last Taken Unknown] gabapentin 300 mg capsule 300 mg PO Q12H 03/19/23 [History Last Taken Unknown] irbesartan 150 mg-hydrochlorothiazide 12.5 mg tablet 1 tab PO DAILY 03/19/23 [History Last Taken Unknown] itraconazole 100 mg capsule 100 mg PO Q8H 03/19/23 [History Last Taken Unknown] leucovorin calcium 5 mg tablet 15 mg PO DAILY 03/19/23 [History Last Taken Unknown] methotrexate sodium 2.5 mg tablet 2.5 mg PO QWEEK 03/19/23 [History Last Taken Unknown] multivitamin (Daily Multi-Vitamin tablet) 1 tab PO DAILY 03/19/23 [History Last Taken Unknown] naproxen 500 mg tablet 500 mg PO Q12H 03/19/23 [History Last Taken Unknown] pantoprazole 40 mg tablet,delayed release 40 mg PO DAILY 03/19/23 [History Last Taken Unknown] potassium chloride 20 mEq tablet,extended release(part/cryst) (Klor-Con M) 20 meq PO BID 03/19/23 [History Last Taken Unknown] tiotropium bromide 2.5 mcg/actuation mist for inhalation (Spiriva Respimat) 2 puff inhalation Q24H 03/19/23 [History Last Taken Unknown] vitamins A,C,X-qgms-xpxfqj 2,148 mcg-113 mg-45 mg-17.4 mg tablet (PreserVision AREDS) 2 tab PO BID 03/19/23 [History Last Taken Unknown] warfarin 5 mg tablet 5 mg PO .COMPLEX 03/19/23 [History Last Taken Unknown] cholecalciferol (vitamin D3) 25 mcg (1,000 unit) capsule 25 mcg PO DAILY 03/26/23 [History Last Taken Unknown] ciprofloxacin HCl 500 mg tablet 500 mg PO Q12H 03/26/23 [History Last Taken Unknown] dexamethasone 6 mg tablet 6 mg PO DAILY 03/26/23 [History Last Taken Unknown] itraconazole 10 mg/mL oral solution 200 mg PO BID 03/26/23 [History Last Taken Unknown] loperamide 2 mg capsule (Anti-Diarrheal (loperamide)) 4 mg PO TID 03/26/23 [History Last Taken Unknown] metronidazole 500 mg tablet 500 mg PO TID 03/26/23 [History Last Taken Unknown] vitamin A-vitamin C-vit E-min tablet (Ocutabs tablet) 2 tab PO DAILY 03/26/23 [History Last Taken Unknown] furosemide 20 mg tablet (Lasix) 20 mg PO DAILY 14 days #14 tabs 03/28/23 [Rx Last Taken Unknown] Allergy/AdvReac Type Severity Reaction Status Date / Time Penicillins Allergy Severe Anaphylaxis Verified 03/28/23 16:32 Surgical History History of embolic filter insertion Hx of foot surgery Social History Smoking Status: Former smoker ROS <MEENU Leger - Last Filed: 03/31/23 19:55> ROS ED ROS Narrative Constitutional: No fever, no chills. Positive for weakness HEENT: No sore throat. No neck pain. No loss of vision. No rhinorrhea. Cardiovascular: No chest pain. No palpitations. No pedal edema. Respiratory: No cough, no shortness of breath. Abdominal: No abdominal pain. No nausea. No vomiting. Genitourinary: No dysuria. No hematuria. Musculoskeletal: No myalgias. No arthralgias. Positive for bilateral lower legedema, positive for right leg redness and pain Neurologic: No headaches. No dizziness. No lightheadedness. Skin: No rash. No change in color. Psychiatric: No depression. No anxiety. EXAM <MEENU Leger - Last Filed: 03/31/23 19:55> Physical Exam Narrative Exam Narrative: Afebrile. Vital signs noted. HEENT: Normocephalic. Atraumatic. PERRL, EOMI. Neck soft and supple. No pointtenderness or step off. Patient is oral mucosa was dry. Cardiovascular: Regular rate and rhythm. No murmurs, rubs, or gallops appreciated. Respiratory: No tachypnea. Lungs clear to auscultation bilaterally. Gastrointestinal: Abdomen soft, nontender, with normoactive bowel sounds. No rebound or guarding. Neurological: Awake. Alert. Nonfocal, nonlateralizing. Skin: No rash. Normal color. No pallor. Musculoskeletal: Patient has +2-3 pitting edema to bilateral feet, patient's right leg is significantly more erythematous than the right. The right leg and foot has some redness, warmth, pain on palpation. This is concerning for cellulitis.. Full range of motion extremities. Const Vital Signs: 03/31/23 16:48 03/31/23 17:01 Temperature 98.3 F Temperature Source Oral Pulse Rate 86 Respiratory Rate 17 Respiratory Pattern Normal Blood Pressure 105/46 L Blood Pressure Mean 65 Pulse Ox 100 Positive well nourished and well developed General Appearance ED: well developed <Dr. Martín Cornejo DO - Last Filed: 03/31/23 20:00> Physical Exam Const Vital Signs: 03/31/23 16:48 03/31/23 17:01 Temperature 98.3 F Temperature Source Oral Pulse Rate 86 Respiratory Rate 17 Respiratory Pattern Normal Blood Pressure 105/46 L Blood Pressure Mean 65 Pulse Ox 100 MDM <MEENU Leger - Last Filed: 03/31/23 19:55> [facility] Lab Data Labs: Laboratory Results - last 24 hr 03/31/23 18:12 WBC 19.4 H RBC 2.87 L Hgb 8.3 L Hct 24.9 L MCV 86.8 MCH 28.9 MCHC 33.3 RDW Std Deviation 75.1 H RDW Coeff of Catarino 24.1 H Plt Count 95 L MPV 10.4 Immature Gran % (Auto) 1.000 H Neut % (Auto) 90.8 H Lymph % (Auto) 3.0 L [place] % (Auto) 5.0 Eos % (Auto) 0.1 Baso % (Auto) 0.1 Absolute Neuts (auto) 17.6 H Absolute Lymphs (auto) 0.59 L Nucleated RBC % 0 Differential Comment SCANNED Platelet Estimate MOD DEC Anisocytosis 2+ Microcytosis 1+ Macrocytosis 1+ PT 16.0 H INR 1.3 Sodium 134 L Potassium 3.2 L Chloride 99 Carbon Dioxide 29.0 Anion Gap 6 BUN 31 H Creatinine 0.75 Estim Creat Clear Calc 50.26 Est GFR (MDRD) Af Amer 96 Est GFR (MDRD) Non-Af 80 BUN/Creatinine Ratio 41.2 H Glucose 108 H Lactic Acid 1.4 Calcium 7.8 L Total Creatine Kinase 125 B-Natriuretic Peptide 97.8 Radiography Diagnostic Testing: Clinical Impression(s) from Imaging Studies Tibia/Fibula X-Ray 03/31/23 17:49 IMPRESSION: No acute radiographic abnormalities. Electronically Signed: Michael Galarza MD at 19:30 EST , Chest X-Ray 03/31/23 18:32 IMPRESSION: No change from prior study. Electronically Signed: Michael Galarza MD at 19:29 EST , Treatment and Re-Evaluation :: Patient appears to be in no obvious respiratory distress, patient's vital signs are stable, patient is alert and orient x 4. Presenting to the emerged department for worsening weakness, failure to thrive, pain to the right leg. Differential diagnosis includes sepsis, failure to thrive, rhabdomyolysis, cellulitis of the right lower extremity. Patient has low probability of any DVTsecondary to being on Coumadin. Patient will receive basic laboratory values including lactic acid as well as CPK. X-rays of the chest and tibia-fibula willbe completed. After talking the patient, the plan will be to admit the patient for failure to thrive. I will also treat the patient concerning for any cellulitis. Patient's laboratory values showed a leukocytosis with a white blood count of 19.4, hemoglobin is 8.3, patient is chronically anemic. PT is 16 with an INR 1.3, this is subtherapeutic for the patient is supposed to be on Coumadin. Patient's potassium 3.2, kidney function within normal limits. BNP is negative,patient's CK was unremarkable. Patient's chest x-ray interpreted by ER physician shows no change, patient's tibia-fibula was unremarkable. Patient wasstarted on IV clindamycin secondary to the anaphylactic reaction to penicillin. Patient will need to be admitted to the hospital for failure to thrive, right lower leg cellulitis. I discussed this with the hospitalist. <Dr. Martín Cornejo, DO - Last Filed: 03/31/23 20:00> [facility] MDM Narrative Medical decision making narrative: Patient appears to be in no obvious respiratory distress, patient's vital signs are stable, patient is alert and orient x 4. Presenting to the emerged department for worsening weakness, failure to thrive, pain to the right leg. Differential diagnosis includes sepsis, failure to thrive, rhabdomyolysis, cellulitis of the right lower extremity. Patient has low probability of any DVTsecondary to being on Coumadin. Patient will receive basic laboratory values including lactic acid as well as CPK. X-rays of the chest and tibia-fibula willbe completed. After talking the patient, the plan will be to admit the patient for failure to thrive. I will also treat the patient concerning for any cellulitis. Patient's laboratory values showed a leukocytosis with a white blood count of 19.4, hemoglobin is 8.3, patient is chronically anemic. PT is 16 with an INR 1.3, this is subtherapeutic for the patient is supposed to be on Coumadin. Patient's potassium 3.2, kidney function within normal limits. BNP is negative,patient's CK was unremarkable. Patient's chest x-ray interpreted by ER physician shows no change, patient's tibia-fibula was unremarkable. Patient wasstarted on IV clindamycin secondary to the anaphylactic reaction to penicillin. Patient will need to be admitted to the hospital for failure to thrive, right lower leg cellulitis. I discussed this with the hospitalist. This patient was seen with a PA/SANITARY LANDFILL OPERATOR Individually assessed they patient including history and physical. I have reviewed everything on the chart that is availableand agree with the documentation provided by the PA/SANITARY LANDFILL OPERATOR including discussion about the assessment, treatment plan, discussion, and return precautions. 37-year-old female presenting with weakness. She has been falling at home. Shestates spent a long time on the toilet today and then when she got up and walkedshe fell. She states that she left her door locked for her friend so she can get in today. Differential as above. Lab workup ultimately shows a leukocytosis. She has cellulitis on the right lower extremity. I do not believe she has a DVT as she has been therapeutic up until today on her INR. Chest x-ray my interpretation shows no acute process. Radiologist interprets and agrees. Right tib-fib x-ray also negative. Cover the patient with clindamycin for cellulitis given her penicillin allergy. Patient states she is weak and needs placement. Patient for rehab. Will admit the patient. Impression: 1. right leg cellulitis 2. Debility 3. Falls 4. Leukocytosis Lab Data Attestation: I reviewed the patient's lab results. Labs: Laboratory Results - last 24 hr 03/31/23 18:12 WBC 19.4 H RBC 2.87 L Hgb 8.3 L Hct 24.9 L MCV 86.8 MCH 28.9 MCHC 33.3 RDW Std Deviation 75.1 H RDW Coeff of Catarino 24.1 H Plt Count 95 L MPV 10.4 Immature Gran % (Auto) 1.000 H Neut % (Auto) 90.8 H Lymph % (Auto) 3.0 L [place] % (Auto) 5.0 Eos % (Auto) 0.1 Baso % (Auto) 0.1 Absolute Neuts (auto) 17.6 H Absolute Lymphs (auto) 0.59 L Nucleated RBC % 0 Differential Comment SCANNED Platelet Estimate MOD DEC Anisocytosis 2+ Microcytosis 1+ Macrocytosis 1+ PT 16.0 H INR 1.3 Sodium 134 L Potassium 3.2 L Chloride 99 Carbon Dioxide 29.0 Anion Gap 6 BUN 31 H Creatinine 0.75 Estim Creat Clear Calc 50.26 Est GFR (MDRD) Af Amer 96 Est GFR (MDRD) Non-Af 80 BUN/Creatinine Ratio 41.2 H Glucose 108 H Lactic Acid 1.4 Calcium 7.8 L Total Creatine Kinase 125 B-Natriuretic Peptide 97.8 Radiography Diagnostic Testing: Clinical Impression(s) from Imaging Studies Tibia/Fibula X-Ray 03/31/23 17:49 IMPRESSION: No acute radiographic abnormalities. Electronically Signed: Michael Galarza MD at 19:30 EST , Chest X-Ray 03/31/23 18:32 IMPRESSION: No change from prior study. Electronically Signed: Michael Galarza MD at 19:29 EST , Discharge Plan Dx/Rx/DC Orders Clinical Impression: Leg edema, Cellulitis, Weakness, Adult failure to thrive Disposition Disposition: Acute Care Hospital [facility] What to do if you have Problems For any increased pain, shortness of breath, bleeding, nausea or vomiting, chestpain, or any unexpected problems, contact your Primary Care Provider. Call [facility] ([phone]) or report to the closest Emergency Room. Call 911 if necessary. 03/31/231999 <Electronically signed by Martín Cornejo DO> Cosigner Signature (if applicable): 03/31/231954 <Electronically signed by Frederick SORTOC> CC: Dr. Claudine Durán MD ~ Signed [facility] Work Phone: [phone] 704-710202-07-2024 Discharge summary Author Etienne Thacker [facility] March 28, 2023 8:37pm Note Date/Time March 28, 2023 5 :11pm [facility] Medical Records Department [address] [place] [address] Emergency Department Summary 03/28/23 MR#: [id number] Acct: [id number] Name: HAYDEE BUSTAMANTE Rep #:[id number] : 1945 77 From: Etienne Thacker MD PCP: Dr. Claudine Durán MD Status:RE G ER Location: ED HPI History of Present Illness Chief Complaint: Shortness of Breath Detail of Chief Complaint: Bilateral lower extremity swelling with weeping of fluids. 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 States that she came in today she was just recently in the ER in the last 1 to 2 days the listed complaint is shortness of breath she states that shehas recurrent lower extremity edema with weeping of fluids. Denies chest pain. States that she has had this before. Prior similar symptoms: Yes Recent Illness/Hospitalization: Yes [facility] Medical History Colitis COPD (chronic obstructive pulmonary disease) DVT (deep venous thrombosis) Former smoker Histoplasmosis Pulmonary embolism Rheumatoid arthritis Home Medications adalimumab 40 mg/0.4 mL subcutaneous pen kit (Humira(CF) Pen) 40 mg subcut Q14D 03/19/23 [History Last Taken Unknown] albuterol sulfate 90 mcg/actuation aerosol inhaler 2 puff inhalation Q4H PRN shortness of breath or wheezing 03/19/23 [History Last Taken Unknown] budesonide-formoterol HFA 160 mcg-4.5 mcg/actuation aerosol inhaler (Symbicort) 2 puff inhalation Q12H 03/19/23 [History Last Taken Unknown] fluticasone propionate 50 mcg/actuation nasal spray,suspension 1 spray intranasal DAILY 03/19/23 [History Last Taken Unknown] gabapentin 300 mg capsule 300 mg PO Q12H 03/19/23 [History Last Taken Unknown] irbesartan 150 mg-hydrochlorothiazide 12.5 mg tablet 1 tab PO DAILY 03/19/23 [History Last Taken Unknown] itraconazole 100 mg capsule 100 mg PO Q8H 03/19/23 [History Last Taken Unknown] leucovorin calcium 5 mg tablet 15 mg PO DAILY 03/19/23 [History Last Taken Unknown] methotrexate sodium 2.5 mg tablet 2.5 mg PO QWEEK 03/19/23 [History Last Taken Unknown] multivitamin (Daily Multi-Vitamin tablet) 1 tab PO DAILY 03/19/23 [History Last Taken Unknown] naproxen 500 mg tablet 500 mg PO Q12H 03/19/23 [History Last Taken Unknown] pantoprazole 40 mg tablet,delayed release 40 mg PO DAILY 03/19/23 [History Last Taken Unknown] potassium chloride 20 mEq tablet,extended release(part/cryst) (Klor-Con M) 20 meq PO BID 03/19/23 [History Last Taken Unknown] tiotropium bromide 2.5 mcg/actuation mist for inhalation (Spiriva Respimat) 2 puff inhalation Q24H 03/19/23 [History Last Taken Unknown] vitamins A,C,B-yvut-xgjwkt 2,148 mcg-113 mg-45 mg-17.4 mg tablet (PreserVision AREDS) 2 tab PO BID 03/19/23 [History Last Taken Unknown] warfarin 5 mg tablet 5 mg PO .COMPLEX 03/19/23 [History Last Taken Unknown] cholecalciferol (vitamin D3) 25 mcg (1,000 unit) capsule 25 mcg PO DAILY 03/26/23 [History Last Taken Unknown] ciprofloxacin HCl 500 mg tablet 500 mg PO Q12H 03/26/23 [History Last Taken Unknown] dexamethasone 6 mg tablet 6 mg PO DAILY 03/26/23 [History Last Taken Unknown] itraconazole 10 mg/mL oral solution 200 mg PO BID 03/26/23 [History Last Taken Unknown] loperamide 2 mg capsule (Anti-Diarrheal (loperamide)) 4 mg PO TID 03/26/23 [History Last Taken Unknown] metronidazole 500 mg tablet 500 mg PO TID 03/26/23 [History Last Taken Unknown] vitamin A-vitamin C-vit E-min tablet (Ocutabs tablet) 2 tab PO DAILY 03/26/23 [History Last Taken Unknown] furosemide 20 mg tablet (Lasix) 20 mg PO DAILY 14 days #14 tabs 03/28/23 [Rx Last Taken Unknown] Allergy/AdvReac Type Severity Reaction Status Date / Time Penicillins Allergy Severe Anaphylaxis Verified 03/28/23 16:32 Surgical History History of embolic filter insertion Hx of foot surgery Social History Smoking Status: Former smoker ROS ROS ED ROS Narrative Denies recent illness. Review of Systems ROS Unobtainable: Denies due to encephalopathy Constitutional Constitutional ED: Denies anorexia Eyes Eyes: Denies blurry vision ENT ENT ED: Denies dental pain Cardiovascular Cardiovascular: Denies clubbing Respiratory/Chest Respiratory/Chest: Denies chest congestion Genitourinary Genitourinary ED: Denies drinking/eating less Musculoskeletal Musculoskeletal: Denies difficulty walking Integumentary Denies change in hair Psychiatric Psychiatric: Denies depression Endocrine Endocrinology: Denies cold intolerance Hematologic/Lymphatic Hematologic/Lymphatic: Denies lymphadenopathy Allergic/Immunologic Allergic/Immunologic ED: Denies mouth swelling EXAM Physical Exam Narrative Exam Narrative: Send 7-year-old female no acute distress. Vital signs stable afebrile. Pulse ox 98% on room air no signs hypoxia. H EENT exam unremarkable. Neck nontender. No lymphadenopathy. Lungs clear to auscultation bilaterally. Heart regular rhythm rate about 80 no murmur. Abdomen soft nontender. Moving all 4 extremities. Bilateral lower extremity edema and weeping of fluids warts all over the hands, sheets in the bed. Calves are nontender. They are equal and symmetrical. Neurologically she is awake and alert. Answer questions followingcommands. Const Vital Signs: 03/28/23 16:33 03/28/23 16:31 03/28/23 17:03 Temperature 97.3 F L Temperature Source Temporal Pulse Rate 82 Respiratory Rate 16 Respiratory Effort Short of Breath Respiratory Depth Normal Respiratory Pattern Normal Blood Pressure 140/76 H Blood Pressure Mean 97 Pulse Ox 98 Oxygen Delivery Method Room Air Room Air Room Air 03/28/23 18:31 03/28/23 19:00 03/28/23 20:00 Temperature Temperature Source Pulse Rate 87 94 95 Respiratory Rate 16 19 H 19 H Respiratory Effort Respiratory Depth Respiratory Pattern Blood Pressure 127/64 H Blood Pressure Mean 85 Pulse Ox 99 98 99 Oxygen Delivery Method Room Air Room Air Room Air Positive well nourished, well developed, alert, oriented x3, no apparent distress, average body habitus and no limitations; Negative for obese, cachectic, contractures or unkempt General Appearance ED: active and well developed; Negative for unkempt, cachectic or contractures Exam Limitations: no limitations Nutritional Appearance: Negative for cachectic or obese HEENT Reports normocephalic and head/scalp atraumatic normocephalic External Ear: external ears normal Mouth ED: Yes oral and palatal mucosa normal Mouth: oral and palatal mucosa normal Throat: posterior oropharynx normal Eyes PERRL, EOMs intact bilaterally and no scleral icterus Conjunctiva: conjunctiva normal Sclera: sclera normal Cornea: cornea normal Pupil: PERRL EOM: EOM abnormal Neck full ROM, no lymphadenopathy, supple, no meningeal signs and no JVD Lymph Lymphatic: no lymphadenopathy noted; Negative for lymphadenopathy Chest Wall inspection of chest normal Resp normal respiratory effort, normal air movement, no retractions, no use of accessory muscles and clear to auscultation bilaterally Effort and Inspection: able to speak in complete sentences Auscultation: clear to auscultation bilaterally Cardio regular rate, regular rhythm, S1 normal heart sound, S2 normal heart sound, no murmurs, no rub and no gallops Rate: regular rate Rhythm: regular rhythm GI normal to inspection, nondistended, normoactive bowel sounds, soft to palpation,non-tender, non-distended and no masses Palpation: soft; Negative for firm, tender or guarding no CVA tenderness Back/Spine no CVA tenderness General Back: Negative for CVA tenderness Extremity no calf tenderness; Negative for normal to inspection or no pedal edema Extremity Narrative: Bilateral pedal edema with weeping of fluid. Neuro oriented x3, CN's II-XII intact bilaterally, moves all extremities and no focal motor deficits Sensorium / Orientation: awake, alert, oriented to person, oriented to place andoriented to time; Negative for orientation impaired Motor Exam: strength 5/5 throughout Psych mental status grossly normal and thought process normal Appearance: Negative for unkempt Attitude: calm, engaged, No paranoid and No withdrawn Activity / Motor Behavior: appropriate eye contact Speech: normal speech Judgement: judgement good Skin no rashes or lesions noted General Skin Exam: no breakdown Lesions: no lesions Rashes: no rashes MDM MDM MDM Narrative Medical decision making narrative: 77-year-old female with lower extremity was weeping edema. She has screening labs being obtained. Repeat exam unchanged. Patient currently tells me she is not on Lasix or any other diuretic. I will put her on Lasix 20 mg a day. Outpatient follow-up withher primary care physician Dr. Monta[facility]. Her labs are basically her baseline and not significantly changed from prior. She meets no criteria for admission at this time. History & Record Review Discussion w/independent historian: Patient Additional record(s) reviewed:: Prior inpatient record Lab Data Attestation: I reviewed the patient's lab results. Lab results narrative: CBC shows a white count of 14.1. H&H 9.6 and 28.8. Consistent with prior bloodcounts and her history of anemia. Platelets 170. Patient is on Coumadin PTT 32 INR 3.1. Electrolytes show with sodium 131. Gap of 8. BUN 36 creatinine 1. Glucose 113. Troponins 17. BNP 162. Labs: Laboratory Results - last 24 hr 03/28/23 16:37 WBC 14.1 H RBC 3.46 L Hgb 9.6 L Hct 28.8 L MCV 83.2 MCH 27.7 MCHC 33.3 RDW Std Deviation 52.7 H RDW Coeff of Catarino 22.1 H Plt Count 170 MPV 10.3 Immature Gran % (Auto) 2.400 H Neut % (Auto) 80.2 H Lymph % (Auto) 7.4 L [place] % (Auto) 9.8 Eos % (Auto) 0.0 Baso % (Auto) 0.2 Absolute Neuts (auto) 11.3 H Absolute Lymphs (auto) 1.04 Nucleated RBC % 0.1 Differential Comment PT 32.4 H INR 3.1 Sodium 131 L Potassium 4.0 Chloride 98 Carbon Dioxide 25.0 Anion Gap 8 BUN 36 H Creatinine 1.01 Estim Creat Clear Calc 39.81 Est GFR (MDRD) Af Amer 69 Est GFR (MDRD) Non-Af 57 L BUN/Creatinine Ratio 35.6 H Glucose 113 H Calcium 8.5 Troponin I High Sens 17 B-Natriuretic Peptide 162.5 H Radiography Chest X-Ray - ED: 1 View, Read by ED Physician, Read by Radiologist, Heart, Lungs, Mediastinum, Bony Structures, No Acute Disease and Chronic Changes Diagnostic Testing: Clinical Impression(s) from Imaging Studies Chest X-Ray 03/28/23 17:11 IMPRESSION: Possible small left lower lobe or lingular infiltrates Electronically Signed: Ken Christy MD at 18:09 EST Reading Location ID and State: [employer] / [place] Tel , Service support , Chest x-ray, portable, single view interpreted by myself and the radiologist. Shows chronic changes no acute process. No significant signs of failure. No obvious pneumonia. No effusions. Rhythm Strip Rhythm Strip: Sinus Rhythm Rate: 81 Ectopy: None EKG Initial EKG: Attestation: I personally reviewed and interpreted this EKG as follows: Interpretation: Sinus Rhythm and No Acute Injury Pattern Comments: Normal sinus rhythm rate 81 no acute signs of VT or ischemia. No significant dysrhythmia. Discharge Plan Triage Chief Complaint: Shortness of Breath ED Provider: Etienne Thacker Dx/Rx/DC Orders Clinical Impression: History of COPD, Chronic anticoagulation, Peripheral edema Instructions: ED Peripheral Edema, Bilateral Prescriptions: New furosemide [Lasix] 20 mg tablet 20 mg PO DAILY 14 Days Qty: 14 0RF No Action gabapentin 300 mg capsule 300 mg PO Q12H albuterol sulfate 90 mcg/actuation HFA aerosol inhaler 2 puff INHALATION Q4H PRN (Reason: shortness of breath or wheezing) fluticasone propionate 50 mcg/actuation spray,suspension 1 spray INTRANASAL DAILY budesonide-formoterol [Symbicort] 160-4.5 mcg/actuation HFA aerosol inhaler 2 puff INHALATION Q12H Humira(CF) Pen 40 mg/0.4 mL pen injector kit 40 mg SUBCUT Q14D Hold Instructions: Resume on 04/24/23. HOLD UNTIL ALLOWED TO RESTART GIVEN RECENT DISSEMINATED HISTOPLASMOSIS AND COVID. irbesartan-hydrochlorothiazide 150-12.5 mg tablet 1 tab PO DAILY Hold Instructions: Resume on 04/24/23. May resume if appropriate and repeat BP assessments and renal function normalized upon PCP re-evaluation at follow-up. itraconazole 100 mg capsule 100 mg PO Q8H Hold Instructions: Ordered naproxen 500 mg tablet 500 mg PO Q12H pantoprazole 40 mg tablet,delayed release (DR/EC) 40 mg PO DAILY warfarin 5 mg tablet 5 mg PO .COMPLEX Rx Instructions: 5 mg orally Sunday, Sunday; 7.5 mg orally Sunday, , Sunday, Sunday, Sunday Spiriva Respimat 2.5 mcg/actuation mist 2 puff INHALATION Q24H leucovorin calcium 5 mg tablet 15 mg PO DAILY Hold Instructions: Resume on 04/24/23. HOLD UNTIL ALLOWED TO RESTART GIVEN RECENT DISSEMINATED HISTOPLASMOSIS AND COVID. methotrexate sodium 2.5 mg tablet 2.5 mg PO QWEEK Hold Instructions: Resume on 04/24/23. HOLD UNTIL ALLOWED TO RESTART GIVEN RECENT DISSEMINATED HISTOPLASMOSIS AND COVID. Rx Instructions: Take every Sunday; Patient takes 2 tablets in AM and 1 tablet in PM potassium chloride [Klor-Con M20] 20 mEq tablet,ER particles/crystals 20 meq PO BID PreserVision AREDS 2,148 mcg-113 mg-45 mg-17.4mg tablet 2 tab PO BID Rx Instructions: administer with AM and PM meals multivitamin [Daily Multi-Vitamin] Tablet 1 tab PO DAILY ciprofloxacin HCl 500 mg tablet 500 mg PO Q12H dexamethasone 6 mg tablet 6 mg PO DAILY itraconazole 10 mg/mL solution 200 mg PO BID Rx Instructions: administer on an empty stomach loperamide [Anti-Diarrheal (loperamide)] 2 mg capsule 4 mg PO TID metronidazole 500 mg tablet 500 mg PO TID cholecalciferol (vitamin D3) 25 mcg (1,000 unit) capsule 25 mcg PO DAILY Ocutabs Tablet 2 tab PO DAILY Primary Care Provider: Claudine Durán Referrals: Claudine Durán MD [Primary Care Provider] - As soon as possible Activity Restrictions/Additional Instructions: Follow-up with your primary care physician next several days. We will start you on the diuretic Lasix 20 mg a day for the next 14 days. This should make you pee a lot and help get rid of the fluid in your legs. I would take it in the morning because you take it before you go to bed at night you will be up all night urinating. Watch your blood pressure because this medication can you affect your blood pressure if your blood pressure is consistently below 110 the higher or systolicnumber then stop the medication. Disposition Disposition: Home, Self Care What to do if you have Problems For any increased pain, shortness of breath, bleeding, nausea or vomiting, chestpain, or any unexpected problems, contact your Primary Care Provider. Call [facility] ([phone]) or report to the closest Emergency Room. Call 911 if necessary. 03/28/232036 <Electronically signed by Etienne Thacker MD> Cosigner Signature (if applicable): CC: Dr. Claudine Durán MD ~ Signed [facility] Work Phone: [phone] Discharge summary Author Martín Cornejo [facility] March 26, 2023 4:23pm Note Date/Time March 26, 2023 1 :02pm [facility] Medical Records Department [address] [place] [id number] Emergency Department Summary 03/26/23 MR#: [id number] Acct: [id number] Name: HAYDEE BUSTAMANTE Rep #:[id number] : 1945 77 From: Martín Cornejo DO PCP: Dr. Claudine Durán MD Status:AD M ADAIR Location: [place] [address] HPI History of Present Illness Chief Complaint: Shortness of Breath Narrative Narrative: 77-year-old female presenting with shortness of breath. She needs placement. She is unable to care for self at home. [facility] due to concern for bowel perforation which was managed medically. Patient was on Ciproand Flagyl for this. 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 She also treated with remdesivir and dexamethasonefor COVID-19 which she was diagnosed with prior to admission. She did not require any surgery. Her Coumadin was restarted prior to discharge. Patient was noted to have severe aortic stenosis and will require follow-up for this as an outpatient. She also had a moderate pericardial effusion. Patient states that she was discharged yesterday. Today her legs are weeping. She is urinating on herself. She states they did a "trick yesterday" to stop her from urinating. So they can discharge her home from [facility]. Patient may need a TAVR in the future. She may need mitral valve repair.. Her creatinine was elevated while she was at [facility]. She was discharged home on Cipro and Flagyl. She will continue itraconazole twice daily. She is given Imodium for diarrhea. He has 4 more days of dexamethasone. She was to hold her HCTZ/irbesartan [facility] Medical History (Updated 03/26/23 @ 15:[address] Laine Veras MD) Colitis Histoplasmosis Pulmonary embolism Home Medications adalimumab 40 mg/0.4 mL subcutaneous pen kit (Humira(CF) Pen) 40 mg subcut Q14D 03/19/23 [History Last Taken Unknown] albuterol sulfate 90 mcg/actuation aerosol inhaler 1 puff inhalation Q4H PRN shortness of breath or wheezing 03/19/23 [History Last Taken Unknown] budesonide-formoterol HFA 160 mcg-4.5 mcg/actuation aerosol inhaler (Symbicort) 2 puff inhalation Q12H 03/19/23 [History Last Taken Unknown] fluticasone propionate 50 mcg/actuation nasal spray,suspension 2 spray intranasal Q12H 03/19/23 [History Last Taken Unknown] gabapentin 300 mg capsule 300 mg PO Q12H 03/19/23 [History Last Taken Unknown] irbesartan 150 mg-hydrochlorothiazide 12.5 mg tablet 1 tab PO DAILY 03/19/23 [History Last Taken Unknown] itraconazole 100 mg capsule 100 mg PO Q8H 03/19/23 [History Last Taken Unknown] leucovorin calcium 5 mg tablet 15 mg PO DAILY 03/19/23 [History Last Taken Unknown] methotrexate sodium 2.5 mg tablet 2.5 mg PO QWEEK 03/19/23 [History Last Taken Unknown] multivitamin (Daily Multi-Vitamin tablet) 1 tab PO DAILY 03/19/23 [History Last Taken Unknown] naproxen 500 mg tablet 500 mg PO Q12H 03/19/23 [History Last Taken Unknown] pantoprazole 40 mg tablet,delayed release 40 mg PO DAILY 03/19/23 [History Last Taken Unknown] potassium chloride 20 mEq tablet,extended release(part/cryst) (Klor-Con M) 20 meq PO BID 03/19/23 [History Last Taken Unknown] tiotropium bromide 2.5 mcg/actuation mist for inhalation (Spiriva Respimat) 2 puff inhalation Q24H 03/19/23 [History Last Taken Unknown] vitamins A,C,L-uwzl-rfmvjh 2,148 mcg-113 mg-45 mg-17.4 mg tablet (PreserVision AREDS) 2 tab PO BID 03/19/23 [History Last Taken Unknown] warfarin 5 mg tablet 5 mg PO DAILY 03/19/23 [History Last Taken Unknown] ciprofloxacin HCl 500 mg tablet 500 mg PO Q12H 03/26/23 [History Last Taken Unknown] dexamethasone 6 mg tablet 6 mg PO DAILY 03/26/23 [History Last Taken Unknown] itraconazole 100 mg capsule 100 mg PO DAILY 03/26/23 [History Last Taken Unknown] Allergy/AdvReac Type Severity Reaction Status Date / Time Penicillins Allergy Severe Anaphylaxis Verified 03/26/23 10:48 Surgical History Hx of foot surgery Social History Smoking Status: Never smoker ROS ROS ED Constitutional Constitutional ED: Denies chills, fever(s) or sweats Eyes Eyes: Denies blurry vision or change in vision ENT ENT ED: Denies ear pain or sore throat Cardiovascular Cardiovascular: Denies chest pain, palpitations or racing heartbeat Respiratory/Chest Respiratory/Chest: Reports dyspnea and dyspnea on exertion; Denies cough or sputum Gastrointestinal Gastrointestinal: Denies abdominal pain, constipation, diarrhea, nausea or vomiting Genitourinary Genitourinary ED: Reports urinary frequency; Denies dysuria or hematuria Musculoskeletal Musculoskeletal: Denies arthralgias, myalgias or neck pain Integumentary Reports other Details: Lower extremity edema ; Denies abscess, Abrasions or rash Neurologic Neurologic: Denies headache(s), paresthesias or weakness Psychiatric Psychiatric: Denies anxiety, depression, suicidal ideation or suicidal thoughts Endocrine Endocrinology: Denies polydipsia or polyuria EXAM Physical Exam Const Vital Signs: 03/26/23 10:48 03/26/23 11:23 03/26/23 13:19 Temperature 97.3 F L Temperature Source Temporal Pulse Rate 94 Respiratory Rate 23 H Respiratory Effort Normal Non-Labored Respiratory Depth Normal Respiratory Pattern Normal Blood Pressure 122/74 H Blood Pressure Mean 90 Pulse Ox 96 Oxygen Delivery Method Room Air Room Air Room Air 03/26/23 15:00 Temperature Temperature Source Pulse Rate 87 Respiratory Rate 19 H Respiratory Effort Respiratory Depth Respiratory Pattern Blood Pressure 128/75 H Blood Pressure Mean 92 Pulse Ox 95 Oxygen Delivery Method Room Air Positive well nourished General Appearance ED: NAD; Negative for pallor HEENT Reports moist mucous membranes Eyes PERRL and EOMs intact bilaterally Chest Wall inspection of chest normal Resp normal respiratory effort and clear to auscultation bilaterally Auscultation: Negative for rales or rhonchi Cardio regular rate and regular rhythm GI normal to inspection, nondistended, normoactive bowel sounds Extremity General Extremety ED: Yes edema General Extremity: edema Neuro oriented x3 and CN's II-XII intact bilaterally Sensorium / Orientation: alert Skin no rashes or lesions noted General Skin Exam: Negative for jaundice or pallor MDM MDM MDM Narrative Medical decision making narrative: Patient presenting with debility. She think she needs help getting her medications that she does not think she will do well if she goes home and does not feel she will care for self. Patient does state that she is very short of breath but is able to talk in full sentences and is not in any distress at all. Lungs clear to auscultation. Patient not tachycardic or tachypneic when I am examining her. She not hypoxic and she is on room air at 95 to 96%. Given her recent COVID and her shortness of breath we will obtain a chest x-ray to rule out pneumonia. CBC to assess for blood cell count, hemoglobin, platelets. BMP to assess renal function, electrolytes, glucose. High-sensitivity troponin EKG to assess for ischemia/dysrhythmia. BNP to assess for CHF. EKG on my interpretation shows sinus rhythm at 101 bpm without sign of ischemic change. Chest x-ray my interpretation shows no acute process. CBC shows a 16.9 white count. Hemoglobin 8.9. This is near her previous baseline. INR therapeutic at3.2. High-sensitivity troponin is 20. BNP slightly elevated at 322 however chest x-ray does not show CHF and she again is not hypoxic or tachypneic on examination. Workup ultimately only shows a leukocytosis which could be from steroids as she was recently treated for COVID with Decadron in the hospital. Chest x-ray is normal. I spoke with the hospitalist for admission and placement. Impression: 1. Dyspnea 2. Leukocytosis 3. Debility Lab Data Attestation: I reviewed the patient's lab results. Labs: Laboratory Results - last 24 hr 03/26/23 13:15 WBC 16.9 H RBC 3.29 L Hgb 8.9 L Hct 26.8 L MCV 81.5 MCH 27.1 MCHC 33.2 RDW Std Deviation 48.8 H RDW Coeff of Catarino 19.6 H Plt Count 169 MPV 9.9 Immature Gran % (Auto) 3.700 H Neut % (Auto) 80.3 H Lymph % (Auto) 6.3 L [place] % (Auto) 9.6 Eos % (Auto) 0.0 Baso % (Auto) 0.1 Absolute Neuts (auto) 13.6 H Absolute Lymphs (auto) 1.06 Nucleated RBC % 0.1 Differential Comment SCANNED Diff Path Review June foll PT 33.3 H INR 3.2 Sodium 135 L Potassium 3.6 Chloride 101 Carbon Dioxide 27.0 Anion Gap 7 BUN 31 H Creatinine 0.89 Estim Creat Clear Calc 49.15 Est GFR (MDRD) Af Amer 79 Est GFR (MDRD) Non-Af 66 BUN/Creatinine Ratio 34.8 H Glucose 111 H Calcium 8.1 L Troponin I High Sens 20 B-Natriuretic Peptide 322.3 H Radiography Diagnostic Testing: Clinical Impression(s) from Imaging Studies Chest X-Ray 03/26/23 13:00 IMPRESSION: Mild degree of increased reticular nodular pattern at the lung bases. No acute infiltrate is seen. Electronically Signed: Geo Ni MD at 13:20 EST , Discharge Plan Triage Chief Complaint: Shortness of Breath ED Provider: Martín Cornejo Dx/Rx/DC Orders Primary Care Provider: Claudine Durán What to do if you have Problems For any increased pain, shortness of breath, bleeding, nausea or vomiting, chestpain, or any unexpected problems, contact your Primary Care Provider. Call [facility] ([phone]) or report to the closest Emergency Room. Call 911 if necessary. 03/26/23 1623 <Electronically signed by Martín Cornejo DO> Cosigner Signature (if applicable): CC: Dr. Claudine Durán MD ~ Signed [facility] Work Phone: 1(684) 468-284902-04-2024 NoteHNO ID: [id number] Author: ARMEN FERNANDEZ, PAULA Service: Nursing Author Type: Registered Nurse Type: Nursing Progress Note Filed: 03/25/2023 08:58 Note Text: Sepsis alert, sound paged, vitals stable, pt stable, waitng for call-back from sound.[facility]02-03-2024 NoteHNO ID: [id number] Author: SHARAN RIVAS MD Service: Hospital Medicine Author Type: Physician Type: Progress Notes Filed: 03/24/2023 13:51 Note Text: DEPARTMENT OF HOSPITAL MEDICINE PROGRESS NOTE Hospital Medicine/Primary Attending: Sharan Rivas MD NIGHT AND WEEKEND COVERAGE: Before 7 pm please page Team color pager After 7pm please page [phone] MEDICATIONS: Current Facility-Administered Medications Medication Dose Route [...] (SPORANOX) 200 mg ORAL BID phenol 1 [place] (CHLORASEPTIC) 1 [place] MUCOUS MEMBRANE (TOPICAL MOUTH AND THROAT) q [...] and AA CARDIAC: No results for input(s): "PBNP" in the last 168 hours. Problem List [...] (Src) 97.5 (Oral) Resp 19 Ht 5' 3" (1.60m) Wt 127 lb 6.8 oz (57.8kg) [...] was found to be COVID-19 positive in [place]. Imaging showed intraperitoneal air and pneumatosis intestinalis and patient was transferred to [facility]. Pulmonology was consulted and patient was started on remdesivir and Decadron for COVID-19. Also started on itraconazole, Cipro and Flagyl. Surgery was involved with no surgical plans. # Pneumatosis intestinalis and pneumoper (more content not included)...[facility]02-03-2024 NoteHNO ID: [id number] Author: MAGAN VILLAFUERTE DO Service: Pulmonary Disease Author Type: Physician [...] of disseminated histoplasmosis. She is followed in [place], [place]. She has a history of previous [...] She presented to the emergency room at [place] after a vigorous coughing episode and coughing [...] (SPORANOX) 200 mg ORAL BID phenol 1 [place] (CHLORASEPTIC) 1 [place] MUCOUS MEMBRANE (TOPICAL MOUTH AND THROAT) q [...] (Src) 97.5 (Oral) Resp 19 Ht 5' 3" (1.60m) Wt 127 lb 6.8 oz (57.8kg) [...] Supple, no adenopathy; thyroi (more content not included)...[facility]02-02-2024 Miscellaneous Notes* Telephone Encounter - Rachelle Leonard APRN.FINANCIAL ANALYSIS ADVISOR - 03/23/2023 5:16 PM EST Please schedule patient to follow with Dr. Hart in 2 months. Thank you [facility] NoteHNO ID: [id number] Author: AMERICA RODRIGUEZ RN Service: Care Management Author Type: Registered Nurse Type: Care Mgt Progress Note Filed: 03/23/2023 14:44 Note Text: CARE MANAGEMENT PROGRESS NOTE SERVICE DATE: 03/23/2023 SERVICE TIME: 12:22 PM LOS: 4 days Post-Acute Discharge Planning Patient Goal(s): Be able to go home, General wellness [place] of [place] Explained: [place] of [place] Given: No Reason Not Given: [...] self care, patient's friends to transport. SIGNATURE: America Rodriguez RN PATIENT NAME: Haydee Bustamante DATE: March 23, 2023 TIME: 2:37 PM PAGER/CONTACT #: [phone] NoteHNO ID: [id number] Author: MAGAN VILLAFUERTE DO Service: Pulmonary Disease Author Type: Physician [...] room air. Appreciate infectious disease evaluation. Dr. Hart note reviewed. Day 5 metronidazole, ciprofloxacin. Started [...] of disseminated histoplasmosis. She is followed in [place], [place]. She has a history of previous [...] She presented to the emergency room at [place] after a vigorous coughing episode and coughing [...] and pelvis 03/19/2023 Abnorma (more content not included)...[facility]02-02-2024 NoteHNO ID: [id number] Author: SHARAN RIVAS MD Service: Hospital Medicine Author Type: Physician Type: Progress Notes Filed: 03/23/2023 12:06 Note Text: DEPARTMENT OF HOSPITAL MEDICINE PROGRESS NOTE Hospital Medicine/Primary Attending: Sharan Rivas MD NIGHT AND WEEKEND COVERAGE: Before 7 pm please page Team color pager After 7pm please page [phone] MEDICATIONS: Current Facility-Administered Medications Medication Dose Route [...] (SPORANOX) 200 mg ORAL BID phenol 1 [place] (CHLORASEPTIC) 1 [place] MUCOUS MEMBRANE (TOPICAL MOUTH AND THROAT) q [...] and AA CARDIAC: No results for input(s): "PBNP" in the last 168 hours. Problem List [...] (Src) 97.5 (Oral) Resp 18 Ht 5' 3" (1.60m) Wt 121 lb (54.9kg) SpO2 97% [...] histoplasmosis, and VTE on (more content not included)...[facility]02-01-2024 NoteHNO ID: [id number] Author: GENO HART MD Service: Infectious Disease Author Type: Physician [...] home -Patient can call my office at [phone] to get an appointment for about 3 [...] chills, myalgias, acute joint changes, abdominal complaints /-feeling stronger. Cough is somewhat less. Has sore [...] recurrent lower extremity DVT, presented to [facility] 03/[facility]/2023 for hemoptysis, going to the [place] ED but then sent here due to [...] be COVID-positive. Interestingly a CAT scan at [place] found pneumatosis intestinalis and intraperitoneal free air comp (more content not included)...[facility]02-01-2024 NoteHNO ID: [id number] Author: MAGAN VILLAFUERTE DO Service: Pulmonary Disease Author Type: Physician [...] of disseminated histoplasmosis. She is followed in [place], [place]. She has a history of previous [...] She presented to the emergency room at [place] after a vigorous coughing episode and coughing [...] Positive PCR for COVID-19 supposedly reported from [facility]. Chest and abdomen/pelvis reviewed CTA chest 03/19/2023 No pulmonary embolism Prominent reticular no (more content not included)...[facility]02-01-2024 NoteHNO ID: [id number] Author: YAN PEREZ DO Service: General Surgery [...] (Oral) Resp 20 Ht 160 cm (5' 3") Wt 54.9 kg (121 lb) SpO2 97% BMI 21.43 kg/m? Yan Perez DO 03/22/2023 1:52 PM][facility]02-01-2024 NoteHNO ID: [id number] Author: JOSE LUIS CRISTOBAL DO Service: General [...] if in ICU or 2174 if on RNF.[facility]02-01-2024 NoteHNO ID: [id number] Author: SHARAN RIVAS MD Service: Hospital Medicine [...] (SPORANOX) 200 mg ORAL BID phenol 1 [place] (CHLORASEPTIC) 1 [place] MUCOUS MEMBRANE (TOPICAL MOUTH AND THROAT) q [...] and AA CARDIAC: No results for input(s): "PBNP" in the last 168 hours. Problem List [...] (Src) 98.1 (Oral) Resp 20 Ht 5' 3" (1.60m) Wt 121 lb (54.9kg) SpO2 97% [...] and plan: Haydee Weber (more content not included)...[facility]02-01-2024 NoteHNO ID: [id number] Author: PAMELA HALL MD Service: General Surgery Author Type: Physician Type: Progress Notes Filed: 04/25/2023 15:56 Note Text: Emergency General Surgery Progress Note SERVICE DATE: March 22, 2023 Emergency General Surgery Service Pager: For questions or concerns Mon-Fri 6a-5p please page [phone]. After 5pm and on Weekends and Holidays, please page [phone] if in ICU or [phone] if on RNF. SUBJECTIVE: Patient denies worsening abdominal pain. No nausea or vomiting. Has not passed gas or had a BM. OBJECTIVE: Vitals: Temp (24hrs), Av.6 ?C (97.9 ?F), Min:36.4 ?C (97.5 ?F), Max:36.7 ?C (98.1 ?F) BP 109/65 Pulse 116 Temp 36.4 ?C (97.5 ?F) (Oral) Resp 18 Ht 160 cm (5' 3") Wt 54.9 kg (121 lb) SpO2 99% BMI 21.43 kg/m? O2 Therapy: Room Air IANDO: Date 03/21/23699 - 03/22/23 0603/22/23 07 - 03/23/23 0659 Shift 6129-4622 9684-6415 2862-8419 24 Hour Total 3340-5011 3958-4780 9528-7561 24 Hour Total INTAKE IV 300 300 Volume (mL) (ciprofloxacin iv piggyback 400 mg in D5W 200 mL (CIPRO)) 200 200 Volume (mL) (metroNIDAZOLE iv piggyback 500 mg in NaCl (iso-osmotic) 100 mL (FLAGYL)) 100 100 Shift Total 300 300 OUTPUT Shift Total Weight (kg) 54.9 54.9 54.9 54.9 54.9 54.9 54.9 54.9 MEDICATIONS Current Facility-Administered Medications Medication Dose Route Frequency enoxaparin 40 mg injection (LOVENOX) 40 mg SUBCUTANEOUS q 24 HR iv contrast (radiology procedure) INTRAVENOUS DIRECTED PRN And enteric contrast (radiology procedure) ORAL DIRECTED PRN remdesivir in NaCl 0.9% Vial-Mate/ADD-Topmost 100 mg 275 mL 100 mg INTRAVENOUS q 24 HR dexAMETHasone (DECADRON) tab(s) 6 mg 6 mg ORAL DAILY WITH BREAKFAST mometasone-formoterol 100-5 mcg/actuation 2 Puff inhaler (DULERA) 2 Puff INHALATION BID sodium chloride 0.9 % (flush) 2-10 mL (BD POSIFLUSH) 2-10 mL INTRAVENOUS DIRECTED PRN And perflutren lipid microspheres 1.1 mg/mL 1.3 mL injection (DEFINITY) 1.3 mL INTRAVENOUS DIRECTED PRN itraconazole 200 mg oral liquid (SPORANOX) 200 mg ORAL TID phenol 1 [place] (CHLORASEPTIC) 1 [place] MUCOUS MEMBRANE (TOPICAL MOUTH AND THROAT) q [...] q 4 H PRN Labs: Recent Labs 03/22/23 0325 03/21/23 0632 03/21/23 0425 03/20/23 0416 03/19/23 1921 NA 134* 130* -- < > 128* K 4.0 4.5 -- < > 4.3 CHLOR 100 97 -- < > 95* CO2 26 26 -- < > 25 BUN 24* 19 -- < > 27* CREAT 0.83 0.93 -- < > 0.88 GLUC 158* 162* -- < > 87 ANION 8* 7* -- < > 8* CA 8.8 8.5 -- < > 8.9 ALB 2.7* 2.8* -- < > -- AST 33 42* -- < > -- ALT 54* 62* -- < > -- ALKPHOS 201* 215* -- < > -- TBILI 0.8 0.6 -- < > -- WBC 10.53 -- 6.94 < > 7.48 HB 8.1* -- 8.6* < > 9.6* HCT 23.1* -- 25.9* < > 29.2* PLT 148* -- 148* < > 144* LACT -- -- -- -- 1.2 INR 2.5* -- 3.9* < > >8.0* < > = values in this interval not displayed. Physical Exam: GENERAL: No distress, Alert NEURO: [...] arthritis (HCC) 03/07/2015 Overview Note: Dr. Hurley ([facility]) Assessment: 77 year old female with PMH significant for RA (Humira), HTN, h/o disseminated Histoplasmosis, bronchiectasis, VTE (on coumadin), pulmonary nodules, and presenting to the ED today after an episode of hemoptysis at home. CTAP had an incidental finding of a small amount of intraperitoneal air and pneumatosis in the colon for which surgery was consulted. Hospital [facility] (more content not included)...[facility] 03-21-2023 NoteHNO ID: [id number] Author: GENO HART MD Service: Infectious Disease Author Type: Physician [...] recurrent lower extremity DVT, presented to [facility] 03/19/2023 for hemoptysis, going to the [place] ED but then sent here due to [...] be COVID-positive. Interestingly a CAT scan at [place] found pneumatosis intestinalis and intraperitoneal free air [...] -- 03/21/23 1000 remdesivir in NaCl 0.9% Vial-Mate/ADD-Topmost 100 mg 275 mL 100 mg, INTRAVENOUS, EVERY 24 HOURS See Hyperspace for full Linked Orders Report. 03/23/23 0959 03/20/23 1300 itraconazole 200 mg oral liquid (SPORANOX) 200 mg, ORAL, 3 TIMES DAILY 03/23/23 1259 03/19/231999 cipro (more content not included)...[facility] 03-21-2023 NoteHNO ID: [id number] Author: PAMELA HALL MD Service: General Surgery [...] (Oral) Resp 18 Ht 160 cm (5' 3") Wt 54.9 kg (121 lb) SpO2 96% BMI 21.43 kg/m? O2 Therapy: Room Air IANDO: Date 03/20/23699 - 03/21/23 0659 03/21/23 07 - 03/22/23 0659 Shift 1483-3101 7636-9013 3800-8623 24 Hour Total 8125-2275 7179-5724 9417-8021 24 Hour Total INTAKE IV 1275 1275 [...] Dose Route Frequency remdesivir in NaCl 0.9% Vial-Mate/ADD-Topmost 100 mg 275 mL 100 mg INTRAVENOUS [...] (SPORANOX) 200 mg ORAL TID phenol 1 [place] (CHLORASEPTIC) 1 [place] MUCOUS MEMBRANE (TOPICAL MOUTH AND THROAT) q [...] arthritis (HCC) 03/07/2015 Overview Note: Dr. Hurley ([facility]) Assessment: 77 year old female with PMH significant for RA (Humira), HTN, h/o disseminated Histoplasmosis, bronchiectasis, VTE (on coumadin), pulmonary nodules, and presenting to the ED today after an episode of hemoptysis at home. CTAP had an incidental finding of a small amount of intraperitoneal air and pneumatosis in the colon. INR on arrival to [place] was 9. She given Vitamin K and transferred here. Hospital Course/Operations/Procedures: * No surgery found * Plan: Pneumatosis intestinalis and intraperitoneal free air - labs and imaging reviewed - Small amount of air on (more content not included)...[facility]01-31-2024 NoteHNO ID: [id number] Author: MAGAN VILLAFUERTE DO Service: Pulmonary Disease Author Type: Physician [...] of disseminated histoplasmosis. She is followed in [place], [place]. She has a history of previous [...] She presented to the emergency room at [place] after a vigorous coughing episode and coughing [...] Positive PCR for COVID-19 supposedly reported from [facility]. Chest and abdomen/pelvis reviewed CTA chest [...] Right atrial cavity normal (more content not included)...[facility]01-30-2024 NoteHNO ID: [id number] Author: ELÍAS QUINN RN Service: Care Management Author Type: Registered Nurse Type: Care Mgt Initial Assessment Filed: 03/20/2023 16:23 Note Text: CARE MANAGEMENT: ASSESSMENT AND DISCHARGE PLAN SERVICE DATE: March 20, 2023 SERVICE TIME: 4:19 PM PCP: Claudine Durán MD Primary Contact: Extended Emergency Contact Information Primary Emergency Contact: Suzie Araiza (Stephany) Address: [address] [address] [facility] Relation: Friend Secondary Emergency Contact: Padmini Chang Address: [address] Mobile Relation: Friend Admission Status: Inpatient Insurance Provider: [employer] PPO Discharge Planning requested by: Per Department Practice Potential Transition Plans Home Advance Directives Current Advance Directive: None Block Sawyer Attempted to Assist with AD Completion: Yes Action: Education Provided Current Living Arrangements and Support Lives with: Alone Type of Residence: Private Residence (House) Does the patient have to climb stairs at home?: Yes;stairs outside the home;stairs within the home Support: Friends/neighbors How do you manage to accomplish the following: Independent: Ambulation;Bathe/Shower;Dress;Meals/Meal Prep;Going to the bathroom;Medication Management;Transportation to appointments/community Current Services/Equipment Current Post-Acute Service(s): None Discharge Planning Patient Goal(s): Be able to go home, General wellness, Less pain, Wean off of O2 [place] of [place] Explained: [place] of [place] Given: No Reason Not Given: [...] by a friend via private auto. SIGNATURE: Elías Quinn RN PATIENT NAME: Haydee Bustamante DATE: March 20, 2023 TIME: 4:19 PM CONTACT #: [phone] Note HNO ID: [id number] Author: MAGAN VILLAFUERTE DO Service: Pulmonary Disease Author Type: Physician [...] of disseminated histoplasmosis. She is followed in [place], [place]. She has a history of previous [...] She presented to the emergency room at [place] after a vigorous coughing episode and coughing [...] Positive PCR for COVID-19 supposedly reported from [facility]. Chest and abdomen/pelvis reviewed CTA chest [...] changes consistent with d (more content not included)...[facility]01-30-2024 NoteHNO ID: [id number] Author: PAMELA HALL MD Service: General Surgery [...] (Oral) Resp 19 Ht 160 cm (5' 3") Wt 54.9 kg (121 lb) SpO2 97% BMI 21.43 kg/m? O2 Therapy: Room Air IANDO: Date 03/19/23 07 - 03/20/23 0659 03/20/23 07 - 03/21/23 0659 Shift 6125-9345 9875-8353 5144-1165 24 Hour Total 9291-7754 9646-4871 5570-4284 24 Hour Total INTAKE IV 300 100 [...] in the colon. INR on arrival to [place] was 9. She given Vitamin K and [...] chemical anticoagulation - INR on arrival to [place] was 9. She given Vitamin K prior to transfer - continue serial abdominal exams - notify general surgery of any acute changes in clinical status D/w Dr. Hall SIGNATURE: Christ Camarena MD PATIENT NAME: Haydee Bustamante DATE: March 20, 2023 TIME: 921 Pager: [phone] Emergency General Surgery Service Pager: For questions [...] with the resident's findi (more content not included)...[facility]01-29-2024 Discharge summary Author Bob Elias [facility] March 19, 2023 5:11pm Note Date/Time March 19, 2023 1 0:38am [facility] System Medical Records Department [address] [place] [address] Emergency Department Summary 03/19/23 MR#: [id number] Acct: [id number] Name: HAYDEE BUSTAMANTE Rep #:[id number] : 1945 77 From: Bob Amaro PCP: Dr. Claudine Durán MD Status:RE G ER Location: ED HPI History of Present Illness Chief Complaint: Cough Informant: patient Onset/Context/Timing Onset: Today Context: Sudden Onset Quality: Bright red Location: Sputum Worsened by: Nothing Relieved by: Cough drops Narrative Narrative: Patient presents with hemoptysis that began today. Patient states she has had acough for the past 2 months but today she noted some blood in her sputum. Patient states it was bright red. Patient states it is approximately 1 tablespoon. Patient states it has been constant. Patient states that she has also had a sore throat for the past several days. Patient states this improves with taking cough drops. Patient states nothing makes her symptoms any worse. Patient denies any fevers or chills. Patient states she has a history of histoplasmosis. [facility] Medical History (Updated 03/19/23 @ 15:[address] Bob Elias, DO) Histoplasmosis Pulmonary embolism Home Medications adalimumab 40 mg/0.4 mL subcutaneous pen kit (Humira(CF) Pen) mg subcut 03/19/23[History Last Taken Unknown] albuterol sulfate 90 mcg/actuation aerosol inhaler inhalation 03/19/23 [History Last Taken Unknown] budesonide-formoterol HFA 160 mcg-4.5 mcg/actuation aerosol inhaler (Symbicort) inhalation 03/19/23 [History Last Taken Unknown] fluticasone propionate 50 mcg/actuation nasal spray,suspension intranasal 03/19/23 [History Last Taken Unknown] gabapentin 300 mg capsule 300 mg PO Q12H 03/19/23 [History Last Taken Unknown] irbesartan 150 mg-hydrochlorothiazide 12.5 mg tablet 1 tab PO DAILY 03/19/23 [History Last Taken Unknown] itraconazole 100 mg capsule mg 03/19/23 [History Last Taken Unknown] naproxen 500 mg tablet 500 mg PO Q12H 03/19/23 [History Last Taken Unknown] pantoprazole 40 mg tablet,delayed release 40 mg PO DAILY 03/19/23 [History Last Taken Unknown] tiotropium bromide 2.5 mcg/actuation mist for inhalation (Spiriva Respimat) inhalation 03/19/23 [History Last Taken Unknown] warfarin 5 mg tablet mg 03/19/23 [History Last Taken Unknown] Allergy/AdvReac Type Severity Reaction Status Date / Time Penicillins Allergy Severe Anaphylaxis Verified 03/19/23 10:10 Surgical History (Updated 03/19/23 @ 11:[address] Bob Elias, ) Hx of foot surgery Social History Smoking Status: Never smoker ROS ROS ED Constitutional Constitutional ED: Denies chills or fever(s) Eyes Eyes: Denies blurry vision or change in vision ENT ENT ED: Reports sore throat; Denies rhinorrhea Cardiovascular Cardiovascular: Denies chest pain or palpitations Respiratory/Chest Respiratory/Chest: Reports cough and sputum; Denies dyspnea Gastrointestinal Gastrointestinal: Denies nausea or vomiting Genitourinary Genitourinary ED: Denies dysuria or hematuria Musculoskeletal Musculoskeletal: Denies back pain or neck pain Integumentary Denies abscess or rash Neurologic Neurologic: Denies headache(s) or weakness Allergic/Immunologic Allergic/Immunologic ED: Denies mouth swelling or urticaria EXAM Physical Exam Const Vital Signs: 03/19/23 10:07 03/19/23 10:06 03/19/23 13:22 Temperature 98.3 F Temperature Source Temporal Pulse Rate 111 H Respiratory Rate 16 Respiratory Effort Normal Respiratory Depth Normal Respiratory Pattern Normal Blood Pressure 103/59 L 102/74 Blood Pressure Mean 73 83 Pulse Ox 100 Oxygen Delivery Method Room Air Room Air Positive well nourished and well developed General Appearance ED: well developed and NAD HEENT Reports moist mucous membranes Neck supple and no JVD Resp normal respiratory effort and clear to auscultation bilaterally Cardio regular rate and regular rhythm GI non-tender and non-distended Palpation: soft Neuro oriented x3, CN's II-XII intact bilaterally and no sensory deficits noted Sensorium / Orientation: alert Motor Exam: strength 5/5 throughout Psych mental status grossly normal MDM MDM MDM Narrative Medical decision making narrative: Differential diagnosis includes pulmonary embolism, lung mass, pneumonia, pneumothorax, viral infection, and coagulopathy. CBC will be obtained to assessfor leukocytosis and anemia. Basic metabolic profile will be obtained to assessfor electrolyte abnormality and renal function. CTA of the chest will be obtained to assess for pulmonary embolism and lung mass. PT with INR and PTT will be obtained to assess for coagulopathy. Lab Data Attestation: I reviewed the patient's lab results. Lab results narrative: CBC was reviewed. Hemoglobin is 9.0 and hematocrit was 27.7. Platelets were slightly low at 145. Basic metabolic profile was reviewed. Sodium was slightlylow at 130. BUN was slightly elevated at 34. Creatinine was normal. PT with INR and PTT were reviewed. Pro time was 78 and INR is 9.4. PTT was 109.6. COVID-19 PCR was reviewed and was positive. Influenza PCR was reviewed and was negative for influenza A and influenza B. RSV PCR was reviewed and was negative. Labs: Laboratory Results - last 24 hr 03/19/23 11:25 WBC 6.4 RBC 3.40 L Hgb 9.0 L Hct 27.7 L MCV 81.5 MCH 26.5 L MCHC 32.5 RDW Std Deviation 48.3 H RDW Coeff of Catarino 16.3 H Plt Count 145 L MPV 10.3 Immature Gran % (Auto) 1.600 H Neut % (Auto) 68.8 Lymph % (Auto) 15.1 L [place] % (Auto) 10.9 H Eos % (Auto) 2.5 Baso % (Auto) 1.1 H Absolute Neuts (auto) 4.4 Absolute Lymphs (auto) 0.97 Nucleated RBC % 0 PT 78.0 H INR 9.4 H* APTT 109.6 H* Sodium 130 L Potassium 4.5 Chloride 100 Carbon Dioxide 26.0 Anion Gap 4 L BUN 34 H Creatinine 0.95 Estim Creat Clear Calc 44.81 Est GFR (MDRD) Af Amer 73 Est GFR (MDRD) Non-Af 61 BUN/Creatinine Ratio 35.7 H Glucose 89 Calcium 9.1 Radiography Diagnostic Testing: Clinical Impression(s) from Imaging Studies Chest CTA 03/19/23 11:06 IMPRESSION: Prominent reticular nodular pattern in both lungs worse in the upper lobes with left lower lobe and right upper lobe pulmonary nodule. Lymphangitic spread should be ruled out. No evidence of pulmonary embolism. Small amount of free intraperitoneal air. A dedicated CT scan of the pelvis recommended for further evaluation. Electronically Signed: Geo Ni MD at 12:39 EST , Abdomen/Pelvis CT 03/19/23 12:45 IMPRESSION: Abnormal appearance of the transverse colon as [...] possible tiny gallstones in the gallbladder lumen. Electronically Signed: Geo Ni MD at 13:47 EST , CTA of the chest was obtained. There is a diffuse reticular nodular pattern in both lungs. There is no evidence of pulmonary embolism noted. There is a smallamount of free intraperitoneal air noted. This was interpreted by the radiologist and was also independently reviewed by myself. Because of the free air noted on the CT scan of the chest, CT scan of the abdomen and pelvis was obtained. There is abnormal appearance of the transversecolon with evidence of pneumatosis in the wall of the colon especially at the hepatic flexure. There is free intraperitoneal air noted. There is sigmoid diverticulosis with mild inflammatory changes. There is sludge and a possible small gallstone in the gallbladder lumen. This was interpreted by the radiologist was also dependently reviewed by myself. Treatment and Re-Evaluation :: Patient was advised of her findings. Patient was given a dose of vitamin K prior to CT results. Patient was started on meropenem. Case was discussed withDr. Camacho from general surgery. He recommended transferring the patient becauseof the elevated INR and limitations of blood bank resources here. Patient requested transfer to [facility]. Transfer line was contacted. Case was discussed with Dr. Lugo at [facility]. He accepted the patient and requested patient be transferred to the emergency department there. Case was discussed with emergency department physician. He accepted the patient to be transferred there. Patient was ordered type and screen. Patient was also ordered a unit of fresh frozen plasma. Patient will be transferred to [facility]. Patient and family understood and were agreeable with the plan. All questions were answered. Critical Care Time Critical Care Time: Yes Critical care time (excluding procedures): 30-74 minutes (38), Including time spent:, Discussing w/Patient &/or Family/Sales Stock Associate, Discussing w/Consultants, Arranging Admission or Transfer and Performing Direct Patient Care at Bedside Discharge Plan Triage Chief Complaint: Cough ED Provider: Bob Elias Dx/Rx/DC Orders Clinical Impression: COVID-19, Coagulopathy, Colitis, Bowel perforation Prescriptions: No Action gabapentin 300 mg capsule 300 mg PO Q12H albuterol sulfate 90 mcg/actuation HFA aerosol inhaler INHALATION fluticasone propionate 50 mcg/actuation spray,suspension INTRANASAL budesonide-formoterol [Symbicort] 160-4.5 mcg/actuation HFA aerosol inhaler INHALATION Humira(CF) Pen 40 mg/0.4 mL pen injector kit SUBCUT irbesartan-hydrochlorothiazide 150-12.5 mg tablet 1 tab PO DAILY itraconazole 100 mg capsule naproxen 500 mg tablet 500 mg PO Q12H pantoprazole 40 mg tablet,delayed release (DR/EC) 40 mg PO DAILY warfarin 5 mg tablet Spiriva Respimat 2.5 mcg/actuation mist INHALATION Primary Care Provider: Claudine Durán Referrals: Claudine Durán MD [Primary Care Provider] - Disposition Disposition: Acute Care Hospital Discharge Location: [facility] What to do if you have Problems For any increased pain, shortness of breath, bleeding, nausea or vomiting, chestpain, or any unexpected problems, contact your Primary Care Provider. Call [facility] ([phone]) or report to the closest Emergency Room. Call 911 if necessary. 03/19/23 1711 <Electronically signed by Bob Elias DO> Cosigner Signature (if applicable): CC: Dr. Claudine Durán MD ~ Signed [facility] Work Phone: 1(507) 620-849012-20-2023 History of Present illness Narrative* Kathleen Alegria, RT(R) - 02/07/2023 11:00 AM EST Radiology Service Progress Note PATIENT NAME: Haydee Bustamante DATE OF SERVICE: February 07, 2023 TIME: 11:06 AM PATIENT IDENTITY VERIFICATION COMPLETED USING TWO (2) IDENTIFIERS: Name and Date of confirmedby patient verbally. FALL SCREENING: Has the patient [...] RT Mariela(R) February 07, 2023 11:06 AM documented in [facility]Kn[facility] History of Present illness Narrative* Adri Zaragoza, CONNIE.FINANCIAL ANALYSIS ADVISOR - 02/07/2023 10:52 AM EST Subjective HPI Haydee presents today with 4 [...] Anemia Bone marrow involvement with histoplasmosis Bronchiectasis ([facility]) COPD (chronic obstructive pulmonary disease) ([facility]) Disseminated histoplasmosis Colitis, immunosuppression, 01/2018. Diverticulosis of colon (without mention of hemorrhage) Diverticulosis DVT, recurrent, lower extremity, acute ([facility]) 12/10/2014 Esophageal reflux Hiatal hernia 02/25/2018 Hypertension Lung nodule Personal history of unspecified urinary disorder 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 rheumatoid factor ([facility]) 03/07/2015 Dr. Hurley ([facility]) Unspecified hemorrhoids without mention of complication [...] SPINE FUSN,POST INTERBODY 2011 Dr. Armando at [facility]. Diskectomy and laminectomy PAST SURGICAL HISTORY OF 03/07/1999 removal facial lesion PAST SURGICAL HISTORY OF 08/17/2014 excision soft tissue mass left index finger TONSILLECTOMY PRIMARY/SECONDARY <AGE 14 JEVON MCCARTHY 12/28/2006 ALLERGIES Penicillins MEDICATIONS budesonide-formoterol (SYMBICORT) 160-4.5 [...] fluticasone (FLONASE) 50 mcg/actuation nasal spray^Use 1 [place] in each nostril once daily.^Disp: 3 Each^Rfl: [address] (PROTONIX) 40 mg tablet^Take 1 tablet by mouth once daily.^Disp: 90 tablet^Rfl: 3 albuterol HFA (PROAIR HFA) 90 mcg/actuation inhaler^Inhale 2 Puffs as instructed every 4 hours as needed.^Disp: 1 Each^Rfl: 2 vit A,C,U-Mgnm-Dkkyxz (OCUVITE PRESERVISION) 2,148 mcg-113 mg-45 mg-17.4mg tab^Take [...] A/B & RSV NAAT, ROUTINE Adri Zaragoza APRN.FINANCIAL ANALYSIS ADVISOR documented in this encounterKn[facility]12-15-[facility]23 History of Present illness Narrative* Melissa Means RN - 02/02/2023 3:19 PM EST pcp agrees with information * Melissa Means RN - 02/02/2023 9:47 AM EST patient had inr completed at [facility] patients inr is 2.1 (patients inr [...] for follow up INR. documented in this encounterKn[facility]12-06-2023 Miscellaneous Notes* Telephone Encounter - Magalie Ngo LPN - 01/24/2023 9:02 AM EST GEREMIAS 07/20/22 Patient phones requesting refills as follows: Requested Prescriptions Pending Prescriptions Disp Refills budesonide-formoterol (SYMBICORT) 160-4.5 mcg/actuation inhaler [Pharmacy Med Name: BUDESONIDE/FORMINHALER 10.2GM 160/4.5MCG] 30.6 g 3 Sig: USE 2 INHALATIONS TWICE A DAY INSTRUCTED Please review and advise. Magalie Ngo LPN documented in this encounterKnox [facility]11-29-2023 History of Present illness Narrative* Melissa Means RN - 01/17/2023 3:02 PM EST pcp agrees with information * Melissa Means RN - 01/17/2023 1:55 PM EST patient had inr completed at [facility] patients inr is 1.9 (patients inr [...] scheduled in 2 weeks (02/02/23) for follow u p INR since this is the first normal reading since dose change documented in this encounterKnox [facility]11-22-2023 History of Present illness Narrative* Melissa Means RN - 01/10/2023 3:47 PM EST pcp agrees with information PATIENT NOTIFIED OF INFORMATION * Melissa Means RN - 01/10/2023 1:38 PM EST patient had inr completed at [facility] patients inr is 2.9 (patients inr [...] and advise on recommendation documented in this encounterKnox Community [facility] History of Present illness Narrative* Yesenia Weinstein LPN - 01/04/2023 4:24 PM EST Patient notified of providers message and verbalized understanding. * Jimbo Swanson APRN.INDUSTRIAL CHEMISTRY TEACHER - 01/04/2023 3:29 PM EST OK to change coumadin to 7.5mg Tues,Sat,Sun and 5mg all other days and recheck INR in 1 week * Melissa Means RN - 01/04/2023 11:34 AM EST patient had inr completed at [facility] patients inr is 2.6 (patients inr range [...] and advise on recommendation documented in this encounterKnox [facility]11-16-2023 Instructions* Patient Instructions* Jimbo Swanson APRN.CNS - 01/04/2023 10:50 AM EST It appears that you have better coverage for the RSV vaccine at your local pharmacy. documented in this encounterKnox [facility] Hospital11-16-2023 History of Present illness Narrative* Jimbo Swanson APRN.CNS - 01/04/2023 10:49 AM EST SUBJECTIVE: RSV Vaccine(1 - 1-dose 60+ series) Never done Covid-19 Vaccine( season) due on 10/20/2022 HPI Haydee Bustamante is a 77 year old female. Her past medical history significant for GERD, meralgia paresthetica, history of embolism and thrombosis, recurrent, voice disorder, arthropathy, enthesopathy ofhip region, elevated liver enzymes, long-term current use of anticoagulation, herniated lumbar disc, atrophic vaginitis ganglion cyst essential hypertension rheumatoid arthritis hip and back pain, iron deficiency anemia, aortic stenosis with bicuspid valve, lung nodule bronchiectasis and COPD. HPI excerpted from previous visits: Hog Sawyer: Florence Collins MD, last seen July 20, 2022. Seen for follow-up of lung nodules bronchiectasis. Noted are a likely etiology for underlying bronchiectasis. Noted new nodularity of lung,likely represents inflammatory nodules. Will need follow-up CT. No this may improve with bronchopulmonary hygiene. Spiriva and intermittent albuterol has helped with cough. Stable. Metal Fabricator Welder: William Messina BAV, aortic stenosis , last seen in cardiology August 29, 2022 by SANTY Love. Continued on current treatments unchanged. Follow-up echo advised, not yet scheduled.. Sieve Repairer: [facility]. Continues with methotrexate, Humira.seen by Dr. Jane Montoya 06/26/2022 for RA, osteoporosis, degenerative disc disease, arthritis of foot, osteoarthritis of bilateral hands. DEXA scan completed, showed osteoporosis. All yes trying recommended restart of Reclast. Weight: stable Exercise: walking miles most days, feeling well with this . 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 Noted macular degeneration. OAC: no bleeding difficulties. Occasional bruising. [facility] coumadin clinic. Referred by scrap metal collector to see orthopedic physician for her hip. [...] fluticasone (FLONASE) 50 mcg/actuation nasal spray^Use 1 [place] in each nostril once daily.^Disp: 3 Each^Rfl: [address] (PROTONIX) 40 mg tablet^Take 1 tablet by mouth once daily.^Disp: 90 tablet^Rfl: 3 albuterol HFA (PROAIR HFA) 90 mcg/actuation inhaler^Inhale 2 Puffs as instructed every 4 hours as needed.^Disp: 1 Each^Rfl: 2 vit A,C,A-Ogwj-Gsbncq (OCUVITE PRESERVISION) 2,148 mcg-113 mg-45 mg-17.4mg tab^Take [...] hemorrhage) Diverticulosis DVT, recurrent, lower extremity, acute ([facility]) 12/10/2014 Esophageal reflux Hiatal hernia 02/25/2018 Hypertension Lung nodule Personal history of unspecified urinary disorder 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 rheumatoid factor (HCC) 03/07/2015 Dr. Hurley ([facility]) Unspecified hemorrhoids without mention of complication [...] to get at pharmacy discussed risks - [facility] RX COVID-19 VACCINE ( SEAS[place]) AGE 12+ YR in office today Jimbo Swanson APRN.CNS Medical Decision Making: Problems: Low: 2+ self-limited or minor problems Risk: Moderate: Drug management Medical Decision Making Level: 3 - Low documented in this encounterKnox [facility] Hospital11-01-2023 Miscellaneous Notes* Telephone Encounter - Maritza Preston LPN - 12/20/2022 11:27 AM EDT Patient has been identified by name and [...] you. Maritza Preston LPN. documented in this encounterKnox [facility] Hospital10-26-2023 History of Present illness Narrative* Jimbo Swanson APRN.CNS - 12/14/2022 12:11 PM EDT Continue with Coumadin dose unchanged and check INR in 2 or 3 weeks * Melissa Means RN - 12/14/2022 10:25 AM EDT patient had inr completed at [facility] patients inr is 2.2 (patients inr range is 1.7-2.2) patient is currently taking 5mg Mon,Wed,Sun and 7.5mg all other days patients last [...] scheduled in 3 weeks (01/04/23) for follow u p INR due to the cc is closed at the 2 week jasmyn and patient declines blood draw documented in this encounterKnox Community Hospital10-19-2023 History of Present illness Narrative* Yesenia Weinstein LPN - 12/07/2022 4:45 PM EDT Patient notified of providers message regarding coumadin instructions and verbalized understanding. * Jimbo Swanson APRN.CNS - 12/07/2022 4:28 PM EDT Recommend Coumadin 5 mg Sunday and 7.5 mg all other days and check INR in 1 week * Melissa Means RN - 12/07/2022 10:15 AM EDT patient had inr completed at [facility] patients inr is 2.5 (patients inr [...] and 7.5mg all other days and recheck inrin 1 week patient has been scheduled for a 1 week follow up inr on 12/14/22 please review and advise on recommendation documented in this encounterKnox Community Hospital10-02-2023 Miscellaneous Notes* Letter - Coordinator, Mammography - 11/20/2022 9:52 AM EDT November 20, 2022 PID: [id number] Haydee Bustamante [address] [place] [id number] Dear Ms. Bustamante, We are pleased to [...] dense breast tissue in addition to other riskfactors. Early detection of cancer is very important. We also understand recommendations regarding breast cancer screening are controversial. Please discuss with your primary care provider which strategy is best for you and whether a mammogram is right for you. Your imaging studies and report will be [facility] as part of your permanent medical record and are available for your continuing care. Thank you for allowing us to help in meeting your health care needs. Sincerely, Dr. Basurto Interpreting Radiologist [facility] (Normal over 40) documented in this encounterKnox Community Hospital09-29-2023 History of Present illness Narrative* Aide Gupta RT(R) - 11/17/2022 9:30 AM EDT Radiology Service Progress Note PATIENT NAME: Haydee Bustamante DATE OF SERVICE: November 17, 2022 TIME: 9:00 AM PATIENT IDENTITY VERIFICATION COMPLETED USING TWO (2) IDENTIFIERS: Name and Date of confirmedby patient verbally. FALL SCREENING: Has the patient [...] Rosa Maria(R) November 17, 2022 9:00 AM * Shahnaz Ferguson Mammo Tech - 11/17/2022 9:30 AM EDT Radiology Service Progress Note PATIENT NAME: Haydee Bustamante DATE OF SERVICE: November 17, 2022 TIME: 9:00 AM PATIENT IDENTITY VERIFICATION COMPLETED USING TWO (2) IDENTIFIERS: Name and Date of confirmedby patient verbally. FALL SCREENING: Has the patient had 2 falls in the last year or 1 fall with injury or currently using an Ambulatory Assistive Device (Walker, Cane, Wheelchair, Crutches, etc.)? No PATIENT GENDER DATA: Female. status: : No status: NO. PATIENT RELEVANT IMPLANT DATA REVIEWED: Not Applicable RADIOLOGY DEPARTMENT: Mammography PERIPHERAL IV DATA: Not applicable SIGNED BY: Shahnaz Ferguson Mammo Tech November 17, 2022 9:00 AM documented in this encounterKnox Community Hospital09-29-2023 Miscellaneous Notes* Result Encounter Note - Jimbo Swanson APRN.CNS - 11/17/2022 9:30 AM EDT Negative, 1 year screening follow-up documented in this encounterKnox Community Hospital09-21-2023 History of Present illness Narrative* Jimbo Swanson APRN.CNS - 11/09/2022 4:41 PM EDT Continue Coumadin dose unchanged and check INR in 4 weeks * Melissa Means RN - 11/09/2022 10:27 AM EDT patient had inr completed at [facility] patients inr is 1.9 (patients inr [...] scheduled in 4 weeks (12/07/22) for follow u p INR. documented in this encounterKnox Community Hospital09-21-2023 Miscellaneous Notes* Telephone Encounter - Melissa Means RN - 11/09/2022 10:29 AM EDT patients orders for coumadin clinic inr's has at this time. new order has been pended for approval if possible so that patient can continue to get inr's completed thru the coumadin clinic. coumadin clinic nurse only needs called if order can not be approved. documented in this encounterKnox Community Hospital09-21-2023 History of Present illness Narrative* Ron Veras MD - 11/09/2022 8:50 AM EDT Ron Veras MD Department of Orthopaedics Orthopaedics [address] [facility] [address] Dept: [phone] Dept November 09, 2022 CHIEF COMPLAINT: New [...] the right hip. Rates the pain as 1/10currently with walking. States the pain is constant [...] as to contrast therapies and/or to take analgesics/anti-inflammatoriesas needed and all contraindications were reviewed. OBJECTIVE: [...] acute pathology. 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 Jack Machine Operator: KRYSTAL Transcribe Date/Time: Dec 31 2021 11:55A [...] Anemia Bone marrow involvement with histoplasmosis Bronchiectasis ([facility]) COPD (chronic obstructive pulmonary disease) ([facility]) Disseminated histoplasmosis Colitis, immunosuppression, 01/2018. Diverticulosis of colon (without mention of hemorrhage) Diverticulosis DVT, recurrent, lower extremity, acute ([facility]) 12/10/2014 Esophageal reflux Hiatal hernia 02/25/2018 Hypertension Lung nodule Personal history of unspecified urinary disorder 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 rheumatoid factor ([facility]) 03/07/2015 Dr. Hurley ([facility]) Unspecified hemorrhoids without mention of complication [...] SPINE FUSN,POST INTERBODY 2012 Dr. Armando at [facility]. Diskectomy and laminectomy PAST SURGICAL HISTORY [...] 5 mg tablet Take 7.5 mg , Sun,Fri, Sat, Sun; [...] (FLONASE) 50 mcg/actuation nasal spray Use 1 [place] in each nostril once daily. pantoprazole DR (PROTONIX) 40 mg tablet Take 1 tablet by mouth once daily. albuterol HFA (PROAIR HFA) 90 mcg/actuation inhaler Inhale 2 Puffs as instructed every 4 hours as needed. vit A,C,I-Wggr-Rglpqm (OCUVITE PRESERVISION) 2,148 mcg-113 mg-45 mg-17.4mg tab [...] depression, anxiety) REFERRING PHYSICIAN: Consultation requested by Twyla Cuevas for an opinion regarding hip OA. My final recommendations will be communicated back to the requesting physician by way of shared Medical record or letter to requesting physician via US mail. Twyla Cuevas [address] [id number] Claudine Durán MD [address] [phone] Ron Veras MD documented in this encounterKnox Community Hospital09-14-2023 Miscellaneous Notes* Telephone Encounter - Isabella Zacarias RN - 11/02/2022 10:12 AM EDT Patient calls back and states that [facility] does have prescription for coumadin. Isabella Zacarias RN * Telephone Encounter - Melanie Mcgregor RN - 11/01/2022 5:24 PM EDT Patient calling to say [facility] tells her they did not receive script for short fill Warfarin. Patient asking if it can be sent again. Pended. Melanie Mcgregor RN documented in this encounterKnox Community Hospital09-12-2023 Miscellaneous Notes* Telephone Encounter - Charissa Perez LPN - 10/31/2022 12:10 PM EDT Last OV: 10/27/22 with TYLOR Yi. Pt [...] patient. Charissa Perez LPN documented in this encounterKnox Community Hospital09-12-2023 Miscellaneous Notes* Telephone Encounter - Ashly Shay RN - 10/31/2022 8:02 AM EDT Patient calling with request for medication/refill: Patient/caregiver requesting refill of Warfarinbe called to [facility] at online.. Patient denies any new or worsening symptoms of which a provider is not aware: Yes. Patient just discovered she will run out of the below rx on . Is requesting a short term supply be sent to [facility] in [place] and the remainder sent to [facility]. Has been taking medication as ordered. warfarin (COUMADIN) 5 mg tablet 30 tablet 3 07/11/2022 Sig: Take 7.5 mg , Sun,Sun, Sun, Sun; and 5 mg on Sunday and Sunday Sent to pharmacy as: warfarin (COUMADIN) 5 mg tablet documented in this encounterKnox Community Hospital09-08-2023 History of Present illness Narrative* Jimbo Swanson, SUPERVISOR IRRIGATION.INDUSTRIAL CHEMISTRY TEACHER - 10/27/2022 9:20 AM EDT SUBJECTIVE: BP CONTROLLED (<130/80) Never done COVID-19 VACCINE(7 - Pfizer risk series) due on 01/05/2022 INFLUENZA(1) due on 10/20/2022 HPI Haydee Bustamante is a 77 year old female. Her past medical history significant for GERD, meralgia paresthetica, history of embolism and thrombosis, recurrent, voice disorder, arthropathy, enthesopathy ofhip region, elevated liver enzymes, long-term current use of anticoagulation, herniated lumbar disc, atrophic vaginitis ganglion cyst essential hypertension rheumatoid arthritis hip and back pain, iron deficiency anemia, aortic stenosis with bicuspid valve, lung nodule bronchiectasis and COPD. Hog Sawyer: Florence Collins MD, last seen July 20, 2022. Seen for follow-up of lung nodules bronchiectasis. Noted are a likely etiology for underlying bronchiectasis. Noted new nodularity of lung,likely represents inflammatory nodules. Will need follow-up CT. No this may improve with bronchopulmonary hygiene. Spiriva and intermittent albuterol has helped with cough. Stable. Metal Fabricator Welder: William Messina BAV, aortic stenosis , last seen in cardiology August 29, 2022 by SANTY Love. Continued on current treatments unchanged. Follow-up echo advised, not yet scheduled.. Sieve Repairer: [facility]. Continues with methotrexate, Humira.seen by Dr. Jane Montoya 06/26/2022 for RA, osteoporosis, degenerative disc disease, arthritis of foot, osteoarthritis of bilateral hands. DEXA scan completed, showed osteoporosis. All yes trying recommended restart of Reclast. Weight: stable Exercise: walking miles most days, feeling well with this . Notes up to 10mi/day when participatingin thevivio production Seen by PCP March 13, 2022. [...] pain, currently taking gabapentin. Plans to see floor care specialist, referred by scrap metal collector. Referred by scrap metal collector to see orthopedic physician for her hip. [...] fluticasone (FLONASE) 50 mcg/actuation nasal spray^Use 1 [place] in each nostril once daily.^Disp: 3 Each^Rfl: [...] hours as needed.^Disp: 1 Each^Rfl: 2 vit A,C,Y-Yiic-Ewaxxg (OCUVITE PRESERVISION) 2,148 mcg-113 mg-45 mg-17.4mg tab^Take [...] hemorrhage) Diverticulosis DVT, recurrent, lower extremity, acute ([facility]) 12/10/2014 Esophageal reflux Hiatal hernia 02/25/2018 Hypertension Lung nodule Personal history of unspecified urinary disorder 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 rheumatoid factor (HCC) 03/07/2015 Dr. Hurley ([facility]) Unspecified hemorrhoids without mention of complication [...] ICD9: 724.3, ICD10: M54.41 Plans to see floor care specialist 6. Hip pain, acute, left - ICD9: 719.45, ICD10: M25.552 7. 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 rheumatoid factor (HCC) - ICD9: 714.0, ICD10: M05.79 Followed by [facility] 8. Bronchiectasis without complication (HCC) - ICD9: 494.0, ICD10: J47.9 9. Lung nodule - ICD9: 793.11, ICD10: R91.[address] Collins pulmonology 10. Aortic stenosis with bicuspid valve - ICD9: 746.3, 746.4, ICD10: Q23.0, Q23.1 Has follow-up appointment scheduled with cardiology, no chest pain dizziness lightheadedness presyncope or syncope noted. Jimbo Swanson APRN.CNS Medical Decision Making: Problems: Moderate: 2+ stable chronic illnesses Risk: Moderate: Drug management Medical Decision Making Level: 4 - Moderate documented in this encounterKnox Community Hospital09-08-2023 Instructions* Patient Instructions* Jimbo Swanson APRN.CNS - 10/27/2022 9:01 AM EDT Consider getting new COVID booster when it becomes available either in clinic or at pharmacy. documented in this encounterKnox Community Hospital09-07-2023 History of Present illness Narrative* Jimbo Swanson APRN.CNS - 10/26/2022 4:38 PM EDT Continue with Coumadin dose unchanged and check INR in 2 weeks * Melissa Means RN - 10/26/2022 12:14 PM EDT patient had inr completed at [facility] patients inr is 1.7 (patients inr [...] reading since dose change documented in this encounterKnox Community Hospital08-24-2023 History of Present illness Narrative* Maritza Preston LPN - 10/12/2022 2:47 PM EDT Left message to call & speak to nurse re: Coumadin. Maritza Preston LPN * Jimbo Swanson APRN.TYLOR - 10/12/2022 2:31 PM EDT Okay to change coumadin dose to 5mg Mon,Wed and 7.5mg all other days and recheck inr in 2 weeks * Melissa Means RN - 10/12/2022 12:34 PM EDT patient had inr completed at [facility] patients inr is 1.5 (patients inr [...] and advise on recommendation documented in this encounterKnox Community Hospital08-21-2023 Miscellaneous Notes* Telephone Encounter - Claudine Durán MD - 10/09/2022 6:50 PM EDT Patient does not take twice daily every [...] with food Authorizing Provider: CLAUDINE DURÁN MD * Telephone Encounter - Thi Zambrano OCCA - 10/09/2022 12:41 PM EDT Patient has been identified by name and [...] Thank you. CARMEN Viveros documented in this encounterKnox Community Hospital08-07-2023 Miscellaneous Notes* Telephone Encounter - Will Babin RN - 09/25/2022 2:10 PM EDT Called PT and put in her my [...] recommend that she follow up with Dr. Messina in 6 months with repeat echo in 1 year. Thanks ~ JJ * Telephone Encounter - Rachelle Schulte APRN.CNP - 09/25/2022 1:32 PM EDT Echo shows that the heart pumping function [...] recommend that she follow up with Dr. Messina in 6 months with repeat echo in 1 year. Thanks ~ JJ documented in this encounterKnox Community Hospital07-28-2023 Miscellaneous Notes* Telephone Encounter - Muna Porter RN - 09/15/2022 10:24 AM EDT Pt called and is notified of providers results and instructions. Pt voices understanding. Muna Porter RN * Telephone Encounter - Brittany Cedillo LPN - 09/14/2022 4:54 PM EDT Message left to pts home number with instructions and requested return call to verify pt rec'd them. * Telephone Encounter - Jimbo Swanson APRN.CNS - 09/14/2022 4:44 PM EDT INR remains a bit above target. 7.5 mg Sunday, 5 mg all other days. Check INR 2 weeks * Telephone Encounter - Ruby Tobin RN - 09/14/2022 3:23 PM EDT Patient returning call to verify coumadin dosage [...] antibiotic use Please advise patient. Thank you. * Telephone Encounter - Brittany Cedillo LPN - 09/14/2022 11:08 AM EDT Last INR: 2.4 09/14/2022 Current dose of coumadin is: . Last date of dose change: 09/07/22. Previous INR (date and result): 09/07/22 was 2.4 Additional Clinical Information or narrative: INR goal is 1.7-2.2 Message left for p to return call to a nurse to verify coumadin dose and pt findings. documented in this encounterKnox Community Hospital07-20-2023 History of Present illness Narrative* Melissa Means RN - 09/07/2022 4:07 PM EDT PATIENT NOTIFIED OF INFORMATION * Jimbo Swanson APRN.CNS - 09/07/2022 3:49 PM EDT Okay for 5 mg Coumadin Sunday and 7.5 mg all other days. Recheck INR in 1 week * Melissa Means RN - 09/07/2022 11:59 AM EDT patient had inr completed at [facility] patients inr is 2.4 (patients inr [...] weeks patient has been scheduled at that [facility] for an inr follow up 09/14/22 (order is already in place) please review and advise on recommendation documented in this encounterKnox Community Hospital07-11-2023 Instructions* Patient Instructions* Rachelle Schulte APRN.CNP - 08/29/2022 9:51 AM EDT Please [...] up in 6 months documented in this encounterKnox Community Hospital07-11-2023 History of Present illness Narrative* Rachelle Schulte APRN.CNP - 08/29/2022 9:30 AM EDT Images from the original note were not included. [facility] [place] [facility] Department of Cardiovascular Medicine SECTION [...] The last office visit visit with Dr. Messina was 08/12/2022. Patient with 0 hospitalizations or ER visits since last OV. Since last office visit patient has been feeling "good." No chest pain No SOB Occasional D/L [...] moderate thickening. There is moderate calcification. The peakgradient is 42 mmHg (peak velocity = 322.9 [...] which included preparing to see the patient, [id number] patient care, completing clinical documentation, performing a medically appropriate examination, counseling and educating the patient/family/caregiver, ordering medications, tests, or p rocedures, and communicating results to the patient/family/caregiver. Thank [...] arise prior to the follow up. Rachelle Schulte APRN.[facility] Cardiology Nurse Practitioner Section of Regional Cardiology [place] Dept of Cardiovascular Medicine [facility] [place] [address] [address] Office Office August 29, 2022 7:46 AM This note was partially generated using [employer] voice recognition system and may contain errors [...] nodule with faint calcifications suggesting calcified granuloma. Jack Machine Operator[facility] Transcribe Date/Time: Jul 24 2022 10:02A [...] 11.9 05/18/2020 12.9 No results found for: "PROBNP" No results found for: "HSTNT" Cholesterol, Total (mg/dL) Date Value 07/07/2021 184 [...] 142/78 Pulse 75 Ht 162.6 cm (5' 4") Wt 58.5 kg (129 lb) SpO2 98% BMI 22.14 kg/m General: Well appearing, in no acute distress. Skin: No clubbing, no cyanosis. Eyes: Extra ocular movements intact Oropharynx: Teeth in good repair. Neck: No jugular venous distention, no carotid bruits, carotids have a normal upstroke, no palpablethyromegaly. Lungs: Clear to auscultation bilaterally, no wheezing [...] Negative for: Weakness, Paralysis, Numbness, Tingling, Tremor, Nervousness,Depressed mood, Memory loss SKIN: Negative for: Rashes, Itching HEMATOLOGICAL/LYMPHATIC: Negative for: Easy bruising , Easy bleeding ENDOCRINE: Negative for: Heat or cold intolerance, Excessive sweating, Frequent urination, Frequentthirst ALLERGIES: Penicillins PAST MEDICAL HISTORY: PAST MEDICAL HISTORY Diagnosis Date Anemia Bone marrow involvement with histoplasmosis Bronchiectasis (HCC) COPD (chronic obstructive pulmonary disease) ([facility]) Disseminated histoplasmosis Colitis, immunosuppression, 01/2018. Diverticulosis of colon (without mention of hemorrhage) Diverticulosis DVT, recurrent, lower extremity, acute ([facility]) 12/10/2014 Esophageal reflux Hiatal hernia 02/25/2018 Hypertension Lung nodule Personal history of unspecified urinary disorder 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 rheumatoid factor ([facility]) 03/07/2015 Dr. Hurley ([facility]) Unspecified hemorrhoids without mention of complication [...] PFSH and ROS obtained by others. Rachelle Schulte APRN.FINANCIAL ANALYSIS ADVISOR CURRENT MEDICATIONS: Current Outpatient Medications Medication Sig budesonide-formoterol (SYMBICORT) 160-4.5 mcg/actuation inhaler Inhale 2 Puffs as instructed twice daily. fluticasone (FLONASE) 50 mcg/actuation nasal spray Use 1 [place] in each nostril once daily. warfarin (COUMADIN) 5 mg tablet Take 7.5 mg , Sun,Sun, Sun, Sun; and 5 mg on Sunday and Sunday pantoprazole DR (PROTONIX) 40 mg tablet Take 1 tablet by mouth once daily. albuterol HFA (PROAIR HFA) 90 mcg/actuation inhaler Inhale 2 Puffs as instructed every 4 hours as needed. vit A,C,F-Swzh-Ndedms (OCUVITE PRESERVISION) 2,148 mcg-113 mg-45 mg-17.4mg tab [...] mL INTRAVENOUS DIRECTED PRN documented in this encounterKnox Community Hospital06-27-2023 Miscellaneous Notes* Telephone Encounter - Magalie Ngo LPN - 08/15/2022 10:20 AM EDT GEREMIAS 07/20/22 Patient phones requesting refills as follows: Requested Prescriptions Pending Prescriptions Disp Refills budesonide-formoterol (SYMBICORT) 160-4.5 mcg/actuation inhaler Sig: Inhale as instructed twice daily. Please review and advise. Magalie Ngo LPN documented in this encounterKnox Community [facility] Miscellaneous Notes* Telephone Encounter - Claudine Durán MD - 08/13/2022 12:10 AM EDT Glad doing better. Thanks for update. * Telephone Encounter - Bakari Catalan LPN - 08/11/2022 2:09 PM EDT Pt calls office /c update. She states she is on her 4th day of prednisone and she is feeling much better, feeling great. She states her pain is cut in half now. Bakari Catalan LPN documented in this encounterKnox [facility]06-01-[facility]23 History of Present illness Narrative* Florence Collins MD - 07/20/2022 9:30 AM EDT Images from the original note were not included. . [facility] [place] Note Patient name: Haydee Bustamante PCP: Claudine Durán MD CC: Follow-up chest CT HPI: Haydee Bustamante 77 year old female former 10 pack year smoker with PMH significant for RA (MTX, Humira), HTN, h/o disseminated Histoplasmosis, bronchiectasis, , VTE, pulmonary nodules, who presents for follow-up. Current inhaled therapy with Symbicort and Spiriva. At [facility] with me, she was a newpatient to me formerly followed by Dr. Andujar. [...] clear sometimes difficult to expectorate, thick and "stringy". She has mucus clearance devices but does [...] DATE OF EXAM: Jul 20 2022 9:22AM [facility] 05[facility] - CT CHEST WO IVCON / [...] The imaged thyroid gland is normal. Calcified mediastinallymph node compatible with the sequela of prior [...] abdomen within the limits of noncontrast technique.. Barn Manager (topogram) images: IVC filter present IMPRESSION: Findings again suggestive of an evolving infectious/inflammatory process such as ROQUE infection withmild bronchiectasis most pronounced in the right middle lobe and lingula and with scattered centrilobular tree-in-bud type subcentimeter nodules. While certain areas appear slightly improved, certain areashave progressed in the interval, as described. Stable [...] hemorrhage) Diverticulosis DVT, recurrent, lower extremity, acute ([facility]) 12/10/2014 Esophageal reflux Hiatal hernia 02/25/2018 Hypertension Lung nodule Personal history of unspecified urinary disorder 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 rheumatoid factor ([facility]) 03/07/2015 Dr. Hurley ([facility]) Unspecified hemorrhoids without mention of complication [...] hours as needed.^Disp: 1 Each^Rfl: 2 vit A,C,Q-Rwmp-Eehqdl (OCUVITE PRESERVISION) 2,148 mcg-113 mg-45 mg-17.4mg tab^Take [...] fluticasone (FLONASE) 50 mcg/actuation nasal spray^Use 1 [place] in each nostril once daily.^Disp: 3 Each^Rfl: [...] SPINE FUSN,POST INTERBODY 2011 Dr. Armando at [facility]. Diskectomy and laminectomy PAST SURGICAL HISTORY [...] likely etiology for her underlying bronchiectasis Florence Collins MD [facility] [place] documented in this encounterKnox [facility] Hospital06-01-2023 History of Present illness Narrative* Faviola Anthony, RT(R) - 07/20/2022 9:00 AM EDT Radiology Service Progress Note PATIENT NAME: Haydee Bustamante DATE OF SERVICE: July 20, 2022 TIME: 9:35 AM PATIENT IDENTITY VERIFICATION COMPLETED USING TWO (2) IDENTIFIERS: Name and Date of confirmedby patient verbally. FALL SCREENING: Has the patient [...] 20, 2022 9:35 AM documented in this encounterKnox Community Hospital05-11-2023 History of Present illness Narrative* Jimbo Swanson APRN.CNS - 06/29/2022 1:52 PM EDT Continue with Coumadin dosing unchanged and check INR in 2 weeks * Melissa Means RN - 06/29/2022 10:28 AM EDT patient had inr completed at [facility] patients inr is 2.1 (patients inr [...] reading since dose change documented in this encounterKnox [facility] Hospital04-04-2023 Miscellaneous Notes* Telephone Encounter - Claudine Durán MD - 05/23/2022 9:05 PM EDT Noted * Telephone Encounter - Diana Evans LPN - 05/23/2022 4:13 PM EDT Message left on patients voicemail to call office. Provider wanting to make sure patient feeling well and ok to proceed with surgery on 05/24/2022. Forms filled out and faxed to number provided, to proceed with the surgery. Diana Evans LPN * Telephone Encounter - Claudine Durán MD - 05/23/2022 4:10 PM EDT If patient stable since February, may proceed with planned surgery. Call patient to verify then fax completed form * Telephone Encounter - Muna Porter RN - 05/23/2022 3:45 PM EDT Lani with Dr Cowart's office called in and report they faxed over a Clearance form for provider to sign. She also reports they sent over the Cardiac clearance, which is what they were waiting on last time. She states if they don't get this before 5 pm they will have to cancel the surgery again. * Telephone Encounter - Maricarmen Jacobs LPN - 05/23/2022 2:14 PM EDT Pt was scheduled for foot surgery in Feb but surgery was rescheduled. Lani from Dr Rani Cowart's office [facility] states they received a signed clearance [...] is scheduled for surgery tomorrow morning. PH: [phone] X [phone] FAX: [phone]. Maricarmen Jacobs LPN documented in this encounterKnox Community Hospital03-16-2023 History of Present illness Narrative* Jimbo Swanson APRN.TYLOR - 05/04/2022 12:54 PM EDT Continue Coumadin dose unchanged and check INR in 1 month * Melissa Means RN - 05/04/2022 10:26 AM EDT patient had inr completed at [facility] patients inr is 2.0 (patients inr [...] for follow up INR. documented in this encounterKnox Community Hospital02-16-2023 History of Present illness Narrative* Jimbo Swanson APRN.CNS - 04/06/2022 12:24 PM EST Continue with Coumadin dose unchanged and check INR in 4 weeks * Melissa Means RN - 04/06/2022 9:45 AM EST patient had inr completed at [facility] patients inr is 2.0 (patients inr range is 1.7-2.2) patient is currently taking 5mg Mon,Wed and 7.5mg all other days patients last dose change was on 12/22/21 due to a low level of 1.4 (dose at that time was 5mg Mon,Wed,Sun and 7.5mg all other days) patient has [...] for follow up INR. documented in this encounterKnox Community Hospital02-09-2023 History of Present illness Narrative* Melissa Means RN - 03/30/2022 3:57 PM EST PATIENT NOTIFIED OF INFORMATION via detailed message * Jimbo Swanson APRN.CNS - 03/30/2022 1:06 PM EST Coumadin 5 mg today then resume previous dosing -5 mg Sunday and 7.5 mg all other days and check INR in 1 week * Melissa Means RN - 03/30/2022 10:53 AM EST patient had inr completed at [facility] patients inr is 2.3 (patients inr [...] up inr on 04/06/22 documented in this encounterKnox Community Hospital01-23-2023 History of Present illness Narrative* Claudine Durán MD - 03/13/2022 10:41 AM EST This note was created using Retraceter. Subjective Haydee Bustamante is a 76 year old female. Patient presents with: 4 month follow up SUBJECTIVE: Haydee Bustamante is a 76 year old year old lady here today for 4 month follow up appointment for reviewof medical conditions. Following with eye doctor. Has early macular degeneration. Given glasses for it. Having foot surgery at [facility] May 19. Told will be extensive--straighten [...] except for what sounds like cough variant asthma.Symbicort routinely. for COPD. Gets labs routinely for Rheumatology. New one now since Dr. Hurley retired. PAST MEDICAL HISTORY Diagnosis Date Anemia Bone marrow involvement with histoplasmosis Bronchiectasis (HCC) COPD (chronic obstructive pulmonary disease) (HCC) Disseminated histoplasmosis Colitis, immunosuppression, 01/2018. Diverticulosis of colon (without mention of hemorrhage) Diverticulosis DVT, recurrent, lower extremity, acute ([facility]) 12/10/2014 Esophageal reflux Hiatal hernia 02/25/2018 Hypertension Personal history of unspecified urinary disorder 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 rheumatoid factor ([facility]) 03/07/2015 Dr. Hurley ([facility]) Unspecified hemorrhoids without mention of complication Hemorrhoids Current Outpatient Medications Medication Sig naproxen (NAPROSYN) 500 mg tablet Take 1 tablet by mouth twice daily as needed. Take with food gabapentin (NEURONTIN) 300 mg capsule Take 1 capsule by mouth twice daily. fluticasone (FLONASE) 50 mcg/actuation nasal spray Use 1 [place] in each nostril once daily. tiotropium bromide [...] factor (HCC) M05.79 5. COPD without exacerbation ([facility]) J44.9 6. Bronchiectasis without complication ([facility]) J47.9 7. 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 Noted that has not needed bridging Lovenox when has been off coumadin. Continue present management with anticoagulation. .BP controlled. Continue present management. Claudine Durán MD documented in this encounterKnox Community Hospital12-15-2022 History of Present illness Narrative* Jimbo Swanson APRN.CNS - 02/02/2022 1:32 PM EST Continue with Coumadin dose unchanged check INR in 4 weeks * Melissa Means RN - 02/02/2022 10:49 AM EST patient had inr completed at [facility] patients inr is 2.0 (patients inr [...] for follow up INR. documented in this encounterKnox Community Hospital11-29-2022 Miscellaneous Notes* Telephone Encounter - Geni Cintron LPN - 01/17/2022 11:58 AM EST Last office visit: 11/10/21 Next appointment scheduled: 03/13/22 Patient phones requesting refills as follows: Requested Prescriptions Pending Prescriptions Disp Refills naproxen (NAPROSYN) 500 mg tablet 120 tablet 3 Sig: Take 1 tablet by mouth twice daily as needed. Take with food Please review and advise. Geni Cintron LPN documented in this encounterKnox Community Hospital11-23-2022 Miscellaneous Notes* Telephone Encounter - Lynne Mann LPN - 01/11/2022 9:09 AM EST Spoke with pt and information listed below given. Pt verbalizes understanding. She will get the labs when they are due. Lynne Mann LPN * Telephone Encounter - Claudine Durán MD - 01/11/2022 8:14 AM EST Patient gets labs done for scrap metal collector so labs are up to date The following approved medication requests have been transmitted electronically. Requested Prescriptions Signed Prescriptions Disp Refills gabapentin (NEURONTIN) 300 mg capsule 180 capsule 3 Sig: Take 1 capsule by mouth twice daily. Authorizing Provider: CLAUDINE DURÁN MD * Telephone Encounter - Lynne Mann LPN - 01/11/2022 7:59 AM EST Patient has been identified by name and [...] you. Lynne Mann LPN documented in this encounterKnox Community Hospital11-17-2022 History of Present illness Narrative* Melissa Means RN - 01/05/2022 4:[address] haynes he agrees with information * Melissa Means RN - 01/05/2022 1:09 PM EST patient had inr completed at [facility] patients inr is 2.2 (patients inr [...] scheduled in 4 weeks (02/02/22) for follow u p INR. documented in this encounterKnox Community Hospital11-12-2022 History of Present illness Narrative* Katarzyna Gage RT(R) - 12/31/2021 11:40 AM EST Radiology Service Progress Note PATIENT NAME: Haydee Bustamante DATE OF SERVICE: December 31, 2021 TIME: 11:45 AM PATIENT IDENTITY VERIFICATION COMPLETED USING TWO (2) IDENTIFIERS: Name and Date of confirmedby patient verbally. FALL SCREENING: Has the patient had 2 falls in the last year or 1 fall with injury or currently using an Ambulatory Assistive Device (Walker, Cane, Wheelchair, Crutches, etc.)? No PATIENT GENDER DATA: Female. status: : No status: NO. PATIENT RELEVANT IMPLANT DATA REVIEWED: Not Applicable RADIOLOGY DEPARTMENT: General X-ray: Exam(s) Completed: Pelvis X-Ray: Pelvis with Hip Left PERIPHERAL IV DATA: Not applicable SIGNED BY: RT Koby(R) December 31, 2021 11:45 AM documented in this encounterKnox Community Hospital11-03-2022 History of Present illness Narrative* Melissa Means RN - 12/22/2021 3:56 PM EDT PATIENT NOTIFIED OF INFORMATION * Jimbo Swanson APRN.CNS - 12/22/2021 1:40 PM EDT Recommend Coumadin 7.5 mg today. Then resume usual dosing 5 mg Gil Wedsunday and 7.5 mg all other days. Check INR 2 weeks * Melissa Means RN - 12/22/2021 11:16 AM EDT patient had inr completed at [facility] patients inr is 1.4 (patients inr [...] up inr on 01/05/22 documented in this encounterKnox Community Hospital10-11-2022 History of Present illness Narrative* Florence Collins MD - 11/29/2021 10:00 AM EDT Images from the original note were not included. . [facility] [place] Note Patient name: Haydee Bustamante PCP: Claudine Durán MD CC: Follow-up lung disease HPI: Haydee Bustamante 76 year old female former 76-aubs-yfdy smoker having quit in 1989 with PMH significant for rheumatoid arthritis (MTX and Humira), HTN, history of disseminated histoplasmosis, bronchiectasis and emphysema, DVT, former patient of Dr. Andujar. Inhaled therapy consists of Spiriva and S ymbicort. No side effects from her inhaled therapy. [...] No fevers, chills, weight loss, night sweats. Shestates that she had recurrent upper respiratory infections [...] positive rheumatoid factor (HCC) 03/07/2015 Dr. Hurley ([facility]) Unspecified hemorrhoids without mention of complication Hemorrhoids ALLERGIES Allergen Reactions Penicillins Hives fluticasone (FLONASE) 50 mcg/actuation nasal spray^Use 1 [place] in each nostril once daily.^Disp: 3 Each^Rfl: [...] SPINE FUSN,POST INTERBODY 2011 Dr. Armando at [facility]. Diskectomy and laminectomy PAST SURGICAL HISTORY [...] 4. RA -Active treatment per rheumatology Florence Collins MD [facility] [place] documented in this encounterKnox Community Hospital10-06-2022 Miscellaneous Notes* Telephone Encounter - Pili Burgos - 11/24/2021 10:37 AM EDT error documented in this encounterKnox Community Hospital09-22-2022 History of Present illness Narrative* Jimbo Swanson APRN.INDUSTRIAL CHEMISTRY TEACHER - 11/10/2021 9:20 AM EDT SUBJECTIVE: BP CONTROLLED (<130/80) Never done ALPHA-1 ANTITRYPSIN DEFICIENCY SCREENING Never done ADVANCE DIRECTIVE DISCUSSION Never done COVID-19 VACCINE(5 - Booster for Pfizer series) due on 09/05/2021 INFLUENZA(1) due on 10/20/2021 HPI Haydee Bustamante is a 76 year old female. Her past medical history significant for GERD, meralgia paresthetica, history of embolism and thrombosis, recurrent, voice disorder, arthropathy, enthesopathy ofhip region, elevated liver enzymes, long-term current use of anticoagulation, herniated lumbar disc, atrophic vaginitis ganglion cyst essential hypertension rheumatoid arthritis hip and back pain, iron deficiency anemia, aortic stenosis with bicuspid valve, lung nodule bronchiectasis and COPD. 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 States that diesel dinkey operator discussed possible amputation of toe but would prefer not to go that route. May see an alternate diesel dinkey operator at [facility]. States took blood pressure medication today. Continues with naproxen unchanged. Notes that she has beeneating out a lot lately. Home blood pressure and heart rate: no recent checks Weight: stable Exercise: walking miles most days, feeling well with this . 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 Messina at 12 mos RA: controlled currently, following with scrap metal collector. OAC: no bleeding difficulties. Occasional bruising. Spiriva [...] fluticasone (FLONASE) 50 mcg/actuation nasal spray^Use 1 [place] in each nostril once daily.^Disp: 3 Bottle^Rfl: [...] positive rheumatoid factor (HCC) 03/07/2015 Dr. Hurley ([facility]) Unspecified hemorrhoids without mention of complication [...] Abs Lymph 1.00 - 4.00 k/uL 1.64 [place]% % 8.0 Abs [place] <0.87 k/uL 0.60 E[place]% % 2.7 Abs [...] (HCC) - ICD9: 496, ICD10: J44.9 - GFRNN-1-WBYFLCBLC BL 3. Encounter for immunization - ICD9: V03.89, ICD10: Z23 - [employer] COVID-19 BIVALENT BOOSTER VACCINE, AGE 12+ YR - INFLUENZA SEASONAL QUADRIVALENT HIGH DOSE AGE 65+ 4. Gastroesophageal reflux disease without esophagitis - ICD9: 530.81, ICD10: K21.9 5. Bronchiectasis without complication (HCC) - ICD9: 494.0, ICD10: J47.9 6. COPD without exacerbation (HCC) - ICD9: 496, ICD10: J44.9 7. Aortic stenosis with bicuspid valve - ICD9: 746.3, 746.4, ICD10: Q23.0, Q23.1 Jimbo Swanson APRN.INDUSTRIAL CHEMISTRY TEACHER] Jimbo Swanson APRN.CNS Medical Decision Making: Problems: Moderate: 1+ chronic illnesses with change and 2+ stable chronic illnesses Risk: Moderate: Drug management Medical Decision Making Level: 4 - Moderate documented in this encounterKnox Community Hospital09-21-2022 Miscellaneous Notes* Telephone Encounter - Claudine Durán MD - 11/09/2021 7:33 PM EDT Filed order * Telephone Encounter - Melissa Means RN - 10/27/2021 11:09 AM EDT patients orders for coumadin clinic inr's has at this time. new order has been pended for approval if possible so that patient can continue to get inr's completed thru the coumadin clinic. coumadin clinic nurse only needs called if order can not be approved. documented in this encounterKnox Community Hospital09-20-2022 Miscellaneous Notes* Telephone Encounter - Ruby Tobin RN - 11/08/2021 11:14 AM EDT Patient has been identified by name and [...] you. Ruby Tobin RN documented in this encounterKnox Community Hospital09-13-2022 Instructions* Patient Instructions* Chacho Louise - 11/01/2021 9:29 AM EDT Your ulceration is now healed Ok to continue with padding as needed F/u as needed documented in this encounterKnox Community Hospital09-13-2022 History of Present illness Narrative* Chacho Louise - 11/01/2021 9:24 AM EDT FOLLOW UP PODIATRIC OFFICE VISIT Chief Complaint: This 76 year old who presents for follow up:ulceration of left 5th toe Patient presents to clinic for follow-up ulceration of left 5th toe. Patient had been treating withaquacel but she has now stopped wrapping as [...] involving multiple sites with positive rheumatoid factor ([facility]) 03/07/2015 Dr. Hurley ([facility]) Unspecified hemorrhoids without mention of complication [...] (FLONASE) 50 mcg/actuation nasal spray Use 1 [place] in each nostril once daily. (Patientnot taking: No sig reported) FOLIC ACID 1 [...] SPINE FUSN,POST INTERBODY 2011 Dr. Armando at [facility]. Diskectomy and laminectomy PAST SURGICAL HISTORY [...] 1-4 left. Skin appears well hydrated and supple.good color, texture, turgor. No open lesions present. [...] callus area was performed. This incidental service isintegral to the evaluation and management visit in [...] to think about surgery at this time. Chacho Louise DPM * Berenice Saeed RN - 11/01/2021 9:10 AM EDT AMB ROOMING INTAKE FLOWSHEET DATA Risk Screening Do you have concerns about personal safety or safety in the home?: No Patient presents with: Left Foot - Follow Up, Ulcer Patient thinks ulcer is healed. Has stopped wrapping it. documented in this encounterKnox Community Hospital09-08-2022 History of Present illness Narrative* Melissa Means RN - 10/27/2021 11:06 AM EDT patient had inr completed at [facility] patients inr is 1.6 (patients inr [...] for follow up INR. documented in this encounterKnox Community Hospital08-30-2022 Instructions* Patient Instructions* Chacho Louise - 10/18/2021 9:[address] aquacel on ulceration daily Place lambs wool or guaze horizontally between the interspace Secure lambs wool or guaze with daniella wrap or tape Wear surgical shoe or wide sneaker or even sandal to avoid pressure on 5th toe documented in this encounterKnox Community Hospital08-30-2022 History of Present illness Narrative* Chacho Louise - 10/18/2021 9:12 AM EDT Initial Podiatric Office Visit: Chief Complaint: This [...] has. She recently developed redness to the leftfoot and was placed on antibiotic by Jimbo Swanson. She is using lambs wool between the [...] hemorrhage) Diverticulosis DVT, recurrent, lower extremity, acute ([facility]) 12/10/2014 Esophageal reflux Hiatal hernia 02/25/2018 Hypertension Personal history of unspecified urinary disorder 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 rheumatoid factor ([facility]) 03/07/2015 Dr. Hurley ([facility]) Unspecified hemorrhoids without mention of complication [...] (FLONASE) 50 mcg/actuation nasal spray Use 1 [place] in each nostril once daily. (Patientnot taking: Reported on 10/18/2021) FOLIC ACID 1 [...] SPINE FUSN,POST INTERBODY 2011 Dr. Armando at [facility]. Diskectomy and laminectomy PAST SURGICAL HISTORY [...] clean and dry 1-4 b/l. Skin appears wellhydrated and supple. good color, texture, turgor. No [...] 1-5 b/l debrided in length and thickness Chacho Louise DPM Podiatry [address] [place] [address] Dept: [phone] Dept * Imelda Quijano LPN - 10/18/2021 8:48 AM EDT AMB ROOMING INTAKE FLOWSHEET DATA Pain Pain Level: 4 Pain Location: Toe Description: Sharp, Raw, Sore Duration Amount of Time: 2 Duration Units: Months Frequency: Intermittent Intervention/Comfort measure: Reposition, Relaxation Patient presents with: Right Foot - Established Patient, Follow Up, Pain, Blister Imelda Quijano LPN documented in this encounterKnox Community Hospital08-30-2022 Miscellaneous Notes* Telephone Encounter - Muna Porter RN - 10/18/2021 8:11 AM EDT Pt only has enough for up to [...] you. Muna Porter RN documented in this encounterKnox Community Hospital08-24-2022 History of Present illness Narrative* RT Vanessa(R) - 10/12/2021 10:00 AM EDT Radiology Service Progress Note PATIENT NAME: Haydee Bustamante DATE OF SERVICE: October 12, 2021 TIME: 10:06 AM PATIENT IDENTITY VERIFICATION COMPLETED USING TWO (2) IDENTIFIERS: Name and Date of confirmedby patient verbally. FALL SCREENING: Has the patient [...] 12, 2021 10:06 AM documented in this encounterKnox Community Hospital08-24-2022 History of Present illness Narrative* Lucero Garciao Pete - 10/12/2021 9:30 AM EDT Radiology Service Progress Note PATIENT NAME: Haydee Bustamante DATE OF SERVICE: October 12, 2021 TIME: 9:56 AM PATIENT IDENTITY VERIFICATION COMPLETED USING TWO (2) IDENTIFIERS: Name and Date of confirmedby patient verbally. FALL SCREENING: Has the patient had 2 falls in the last year or 1 fall with injury or currently using an Ambulatory Assistive Device (Walker, Cane, Wheelchair, Crutches, etc.)? No PATIENT GENDER DATA: Female. status: : No status: NO. PATIENT RELEVANT IMPLANT DATA REVIEWED: Not Applicable RADIOLOGY DEPARTMENT: Mammography PERIPHERAL IV DATA: Not applicable SIGNED BY: Lucero Garciao Pete October 12, 2021 9:56 AM documented in this encounterKnox Community Hospital08-11-2022 History of Present illness Narrative* Jimbo Swanson APRN.CNS - 09/29/2021 1:52 PM EDT Continue current Coumadin dose unchanged and check INR in 4 weeks * Melissa Means RN - 09/29/2021 1:20 PM EDT patient had inr completed at [facility] patients inr is 2.0 (patients inr [...] for follow up INR. documented in this encounterKnox Community Hospital08-02-2022 Instructions* Patient Instructions* Jimbo Swanson APRN.CNS - 09/20/2021 1:55 PM EDT Keep your toe clean dry and . Was with soap and water daily, dry thoroughly. Use lambswool between toes. Avoid tight shoes documented in this encounterKnox Community Hospital08-02-2022 History of Present illness Narrative* Jimbo Swanson APRN.CNS - 09/20/2021 1:40 PM EDT SUBJECTIVE: BP CONTROLLED (<130/80) Never done ALPHA-1 ANTITRYPSIN DEFICIENCY SCREENING Never done ADVANCE DIRECTIVE DISCUSSION Never done DEPRESSION SCREENING due on 07/13/2021 HPI Hayede Bustamante is a 76 year old female. Her past medical history significant for GERD, meralgia paresthetica, history of embolism and thrombosis, recurrent, voice disorder, arthropathy, enthesopathy ofhip region, elevated liver enzymes, long-term current use of anticoagulation, herniated lumbar disc, atrophic vaginitis ganglion cyst essential hypertension rheumatoid arthritis hip and back pain, iron deficiency anemia, aortic stenosis with bicuspid valve, lung nodule bronchiectasis and COPD. 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 Messina at 12 mos RA: controlled currently, following with scrap metal collector. Histoplasmosis: notes resolved symptoms. OAC: no bleeding difficulties. Occasional bruising. Spiriva and intermittent albuterol has helped with cough. Presents today for foot lesion. 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 econazole (SPECTAZOLE) [...] positive rheumatoid factor (HCC) 03/07/2015 Dr. Hurley ([facility]) Unspecified hemorrhoids without mention of complication [...] Abs Lymph 1.00 - 4.00 k/uL 1.64 [place]% % 8.0 Abs [place] <0.87 k/uL 0.60 Eosin% % 2.7 Abs [...] Let us know if not improving. Jimbo Swanson APRN.CNS Medical Decision Making: Problems: Low: Acute, uncomplicated illness or injury Risk: Moderate: Drug management Medical Decision Making Level: 3 - Low documented in [facility] encounterKn[facility]07-[facility]22 Miscellaneous Notes* Letter - Mammography Coordinator - 09/05/2021 10:07 AM EDT September 05, 2021 PID: [id number] Haydee Bustamante [address] [place] [id number] Dear Ms. Bustamante, Your recent breast imaging exam on 09/05/2021 showed a possible finding that requires additional imaging studies for a complete evaluation. Most such findings are probably benign (not cancer). If you have a healthcare provider who ordered/prescribed your screening mammogram: Please call [phone] or [phone] to schedule an appointment for your additional imaging (if youhave not already done so). If you DO [...] and reports are kept on file at [facility] as part of your permanent medical record, and are available for your continuing care. Thank you for allowing us to help in meeting your health care needs. Sincerely, Dr. Bell Interpreting Radiologist [facility] (Additional imaging) documented in this encounterKnox Community Hospital07-18-2022 History of Present illness Narrative* Haider Hernandez - 09/05/2021 9:30 AM EDT Radiology Service Progress Note PATIENT NAME: Haydee Bustamante DATE OF SERVICE: September 05, 2021 TIME: 9:28 AM PATIENT IDENTITY VERIFICATION COMPLETED USING TWO (2) IDENTIFIERS: Name and Date of confirmedby patient verbally. FALL SCREENING: Has the patient [...] 05, 2021 9:28 AM documented in this encounterKn[facility]07-05-2022 History of Present illness Narrative* Melissa Means RN - 08/23/2021 4:36 PM EDT per verbal order by director of clinical applications provider dr rowell she agrees with information * Melissa Means RN - 08/23/2021 12:01 PM EDT patient had inr completed at [facility] patients inr is 2.2 (patients inr [...] for follow up INR. documented in this encounterKnox [facility] Hospital06-24-2022 History of Present illness Narrative* William Messina, DO - 08/12/2021 11:31 AM EDT Images from the original note were not included. [facility] SECTION OF REGIONAL CARDIOLOGY [facility] OUTPATIENT VISIT DATE August 12, 2021 PRIMARY CARE PHYSICIAN: Claudine Durán [address] [place] [address] HISTORY OF PRESENT ILLNESS: Ms. Bustamante is a 76 year old female. The patient returns for follow-up due to history of known bicuspid aortic valve stenosis. Previous stenosis has been evaluation as showed this to be mild. Additionalhistory includes hypertension. 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 She is planning on doing [employer] again this summer. She denies chest discomfort, [...] 130/74 Pulse 72 Ht 162.6 cm (5' 4") Wt 59.4 kg (131 lb) SpO2 99% [...] positive rheumatoid factor (HCC) 03/07/2015 Dr. Hurley ([facility]) Unspecified hemorrhoids without mention of complication [...] SPINE FUSN,POST INTERBODY 2012 Dr. Armando at [facility]. Diskectomy and laminectomy PAST SURGICAL HISTORY [...] (FLONASE) 50 mcg/actuation nasal spray Use 1 [place] in each nostril once daily. econazole (SPECTAZOLE) [...] biatrial enlargement but is otherwise normal. William Messina DO, FACC, FACOI Clinical and Preventive Cardiology Department of Medicine and Division of Cardiology, [facility] Robotics Mechanicvest backer [facility] Robotics Mechanic of Congestive Heart Failure Clinic [facility] Cardiology Office Robotics Mechanic [facility] Staff Metal Fabricator Welder, Les Pierce Department of Cardiovascular Medicine/Heart and Vascular [place], [facility] Clinical Ramp And Cargo Supervisor Profressor of Medicine, [facility] of Medicine [facility] Please note: This note has been produced using speech recognition software and may contain errors related to that system including madelyn, punctuation, spelling, words, gender and phrases that may be inappropriate. documented in this encounterKnox Community Hospital06-10-2022 Miscellaneous Notes* Telephone Encounter - Nahomy Mercado - 07/29/2021 2:32 PM EDT Pharmacy faxed requesting the following refill. Pending Prescriptions Disp Refills SYMBICORT 160 MCG-4.5 MCG/ACTUATION HFA AEROSOL INHALER 30.6 g 4 Sig: USE 2 INHALATIONS TWICE A DAY INSTRUCTED YULIANA: Yes Patient last appointment: [address] [place] [address] Andujar Patient Phone numbers: [phone] (home) Request is for script(s) to be escript to pharmacy. Nahomy Mercado documented in this encounterKnox Community Hospital06-06-2022 History of Present illness Narrative* Melissa Means RN - 07/25/2021 4:39 PM EDT pcp agrees with information * Melissa Means RN - 07/25/2021 11:43 AM EDT patient had inr completed at [facility] patients inr is 1.8 (patients inr [...] for follow up INR. documented in this encounterKnox Community Hospital05-23-2022 History of Present illness Narrative* Claudine Durán MD - 07/11/2021 8:18 AM EDT This note was created using Aptelariter. Subjective Haydee Bustamante is a 76 year old female. Patient presents with: Follow Up SUBJECTIVE: Haydee Bustamante is a 76 year old year old lady here today for 4 month follow up appointment for reviewof medical conditions. Noted lesion on lef that has gotten larger since last year. Wants removed. Had wart on hand that had cauterized in the past. Noted that iron was meant to discuss last time, not calcium. Did not get dark green one but got iron gluconate 27mg currently taking 2 every other day. Postponing toe surgery for now--has show. 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 Noted fell when missed top step. [...] positive rheumatoid factor (HCC) 03/07/2015 Dr. Hurley ([facility]) Unspecified hemorrhoids without mention of complication [...] (FLONASE) 50 mcg/actuation nasal spray Use 1 [place] in each nostril once daily. econazole (SPECTAZOLE) [...] Abs Lymph 1.00 - 4.00 k/uL 1.64 [place]% % 8.0 Abs [place] <0.87 k/uL 0.60 Eosin% % 2.7 Abs [...] INR 1.7 The 10-year ASCVD risk score (Kobydayana KIM Jr., et al., 2013) is: 17.2% Values [...] ICD10: B07.8 Liquid Nitrogen used to freeze arnoldo with her permission. Discussed will blister. May [...] vaccine - ICD9: V04.89, ICD10: Z23 - TMMI ([employer]-MogiMe COVID-19 VACCINE, AGE 12+ YR (ARIAS TOP) 6. COPD without exacerbation (HCC) - ICD9: 496, ICD10: J44.9 Continue present management. Discussed Dr. Andujar's instructions to use albuterol before activity that causes coughing 7. Bronchiectasis without complication (HCC) - ICD9: 494.0, ICD10: J47.9 As noted above. Fall discussed. Arthritis discussed. Claudine Durán MD documented in this encounterKnox Community Hospital05-12-2022 History of Present illness Narrative* Gold Colón RN - 06/30/2021 2:02 PM EDT inSight CDM Engagement Provider Action/FYI: Spk with Pt she denies new or worsening COPD symptoms or needs. Pt plans to have her Covid Booster at upcoming Appt with 07/11/21 Contact Made with Patient: Yes Patient identified by name and . Discussed care with patient Shante venegas name is Katarzyna Malcolm RN your Pharmacy General Manager from Claudine Durán MD office at the [facility]. I am reaching out today because [...] will be monitoring your responses on the questionnaireto make sure we are not seeing any changes in your health that your Primary Care Physician needs toknow about, or looking for improvements and keeping [...] Malcolm RN June 30, 2021 2:03 PM * Gold Colón RN - 06/29/2021 3:31 PM EDT [facility] CDM Engagement Provider Action/FYI: Call to Pt left a message to verify COPD symptom status and needs. Contact Made with Patient: No, first attempt, left message. Shante Bustamante. This is Katarzyna Malcolm RN your Pharmacy General Manager from the [facility]. I am calling to check in with you concerning the MyChart questionnaire you have been receiving from me. I will call you again tomorrow and am looking forward to speaking with you. (Pharmacy General Manager enters next day in "next patient outreach") Katarzyna Malcolm RN June 29, 2021 3:31 PM documented in this encounterKnox Community Hospital04-21-2022 History of Present illness Narrative* Melissa Means RN - 06/09/2021 4:19 PM EDT per director of clinical applications provider dr garza patient is to continue same dose PATIENT NOTIFIED OF INFORMATION * Melissa Means RN - 06/09/2021 10:26 AM EDT patient had inr completed at [facility] patients inr is 1.6 (patients inr [...] in 4 weeks (07/07/21 - via blood dr trivedi) for follow up INR. documented in this encounterKnox Community Hospital04-18-2022 Miscellaneous Notes* Telephone Encounter - Sergey Ramirez Ma - 06/06/2021 9:42 AM EDT GEREMIAS: 03/14/2021 Last refill: 05/12/2019 QTY: 1 Refills: 2 Patient's request for medication is as follows: Pending Prescriptions Disp Refills ALBUTEROL SULFATE HFA 90 MCG/ACTUATION AEROSOL INHALER 1 Inhaler 2 Sig: Inhale 2 Puffs as instructed every 4 hours as needed. YULIANA: No Please approve the above prescription(s) to electronically send to pharmacy. Sergey Ramirez Ma documented in this encounterKnox Community Hospital04-11-2022 Instructions* Patient Instructions* Mirian Andujar MD - 2021 3:44 PM EDT [...] I am retiring from the staff of [facility] and the practice of Medicine on August 18, 2021, after 41 years of service to my patients. It has been my privilege to provide you with Pulmonary consultation and care for the time we have known each other. Please feel confident that my colleagues are well equipped to provide ongoing care in the future: Akbar Collins MD and Johanna Mariscal PA-C. documented in this encounterKnox Community Hospital04-11-2022 History of Present illness Narrative* Mirian Andujar MD - 2021 3:33 PM EDT [facility] Respiratory [place], 2021: Name: Haydee Bustamante : 1945 INTERVAL [...] few months. This cough is associated with "nasty" sputum of increased volume and purulence. There [...] 98 Resp 14 Ht 162.6 cm (5' 4") Wt 58.3 kg (128 lb 9.6 oz) SpO2 99% BMI22.07 kg/m Gen: No acute distress. Cooperative with [...] -Reassess in 6 months, sooner if needed. Mirian Andujar MD, [facility] Respiratory [place] [facility] [address] [address] P: [phone] F: [phone] [email or web address] documented in this encounterKnox Community Hospital04-07-2022 History of Present illness Narrative* Melissa Means RN - 05/26/2021 3:21 PM EDT director of clinical applications provider agrees with information * Melissa Means RN - 05/26/2021 10:43 AM EDT patient had inr completed at [facility] patients inr is 1.6 (patients inr [...] is just slightly low documented in this encounterKnox [facility] Hospital04-01-2022 History of Present illness Narrative* Nara Dill - 05/20/2021 2:45 PM EDT POPULATION HEALTH NAVIGATION OUTREACH Action/FYI: [employer] Care Gaps Discuss/Due: Advance Directives, Screening Mammogram due 06/02/21 or after Outcome: Patient Declined Scheduling Pt identified by name and : YES, via phone Outreach Outcome/Action Spoke to patient or caregiver: Patient declined Reason for Outreach Care Gap or Scheduling/Wellness visits Payer: Payor: [employer] MEDICARE / Plan: [employer] MEDICARE PPO / [...] 20, 2021 2:45 PM documented in this encounterKnox Community Hospital01-24-2022 History of Present illness Narrative* Claudine Durán MD - 03/14/2021 8:16 AM EST This note was created using Retraceter. Subjective Haydee Bustamante is a 75 year old female. Patient presents with: Established Patient: 4 month f ollow up- covid 02/06/21 SUBJECTIVE: Haydee Bustamante is a 75 year old year old lady here today for 4 month follow up appointment for reviewof medical conditions. Still has cough that come and goes. Reviewed COVID infection in January.Recovered well. Calcium citrate was what had been taking. Now something else [facility] gave instead even though brought the old bottle. 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 Doing better with vocal exercises. Chronic cough and mucus issues noted. Continues to follow up with Dr. Messina. PAST MEDICAL HISTORY Diagnosis Date Blood dyscrasia Disseminated histoplasmosis Colitis, immunosuppression, 01/2018. 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 Hurley ([facility]) Unspecified hemorrhoids without mention of complication [...] (FLONASE) 50 mcg/actuation nasal spray Use 1 [place] in each nostril once daily. potassium chloride [...] F) Resp 14 Ht 162.6 cm (5' 4") Wt 58.1 kg (128 lb) SpO2 99% [...] - good control - Follows with Dr. Messina ([facility] cardiology) - Continue current medication(s) - Recommended [...] Q23.0, Q23.1 Continue follow up with Dr. Messina 7. 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 rheumatoid factor (HCC) - ICD9: 714.0, ICD10: M05.79 Stable on meds through [facility]--Dr. Hurley Gets labs through his office. Lipid ordered. I spent a total of at least 30 minutes on the date of the service which included [id number] patient care, completing clinical documentation, obtaining and/or reviewing separately obtained history, performing a medically appropriate examination, counseling and educating the patient/family/caregiver and ordering medications, tests, or procedures. Claudine Durán MD documented in this encounterKnox [facility] Hospital01-18-2019 History of Past illness Narrative* Problem [...] of this encounter (statuses as of 05/20/2021) [facility] Narrative* Problem [...] of this encounter (statuses as of 05/22/2021) [facility] Narrative* Problem [...] of this encounter (statuses as of 05/26/2021) [facility] Narrative* Problem Noted Date Resolved Date Murmur 03/08/2018 08/05/2018 Anemia 03/08/2018 04/26/2018 DVT, recurrent, lower extremity, acute 5 03/03/2018 Overview: Remote history of DVT S/P IVC filter On Warfarin 5 mg TTSS, 7.5 mg MWF Right sided sciatica 03/20/2011 03/30/2014 Hypertension 04/13/2010 03/07/2015 Rheumatoid arthritis 04/01/2009 03/07/2015 Pain in joint, lower leg 10/18/2006 01/12/2 019 documented as of this encounter (statuses as of 06/06/2021) [facility] Narrative* Problem [...] of this encounter (statuses as of 06/09/2021) [facility] Narrative* Problem [...] of this encounter (statuses as of 06/30/2021) [facility] Narrative* Problem [...] of this encounter (statuses as of 07/25/2021) [facility] Narrative* Problem [...] of this encounter (statuses as of 08/01/2021) [facility] Narrative* Problem [...] of this encounter (statuses as of 08/12/2021) [facility] Narrative* Problem [...] of this encounter (statuses as of 08/23/2021) [facility] Narrative* Problem [...] of this encounter (statuses as of 09/06/2021) [facility] N[facility]ative* Problem [...] of this encounter (statuses as of 09/06/2021) [facility] Narrative* Problem [...] of this encounter (statuses as of 09/07/2021) [facility] Narrative* Problem [...] of this encounter (statuses as of 09/20/2021) [facility]ative* Problem [...] of this encounter (statuses as of 09/29/2021) [facility]* Problem [...] of this encounter (statuses as of 10/13/2021) [facility] N[facility]ative* Problem [...] of this encounter (statuses as of 10/13/2021) [facility] N[facility]ative* Problem [...] of this encounter (statuses as of 10/18/2021) [facility]* Problem [...] of this encounter (statuses as of 10/18/2021) [facility]* Problem [...] of this encounter (statuses as of 10/19/2021) [facility]* Problem [...] of this encounter (statuses as of 10/27/2021) [facility]* Problem [...] of this encounter (statuses as of 11/01/2021) [facility]* Problem [...] of this encounter (statuses as of 11/08/2021) [facility]* Problem [...] of this encounter (statuses as of 11/10/2021) [facility]* Problem [...] of this encounter (statuses as of 11/10/2021) [facility]* Problem [...] of this encounter (statuses as of 11/29/2021) [facility]* Problem [...] of this encounter (statuses as of 12/04/2021) [facility]* Problem [...] of this encounter (statuses as of 12/22/2021) [facility]* Problem [...] of this encounter (statuses as of 12/27/2021) [facility] Problem [...] of this encounter (statuses as of 01/05/2022) [facility] Problem [...] of this encounter (statuses as of 01/11/2022) [facility]* Problem [...] of this encounter (statuses as of 01/17/2022) [facility]* Problem [...] of this encounter (statuses as of 01/17/2022) [facility]* Problem [...] of this encounter (statuses as of 02/02/2022) [facility] Problem [...] of this encounter (statuses as of 02/22/2022) [facility] Problem [...] of this encounter (statuses as of 02/24/2022) [facility]* Problem [...] of this encounter (statuses as of 03/14/2022) [facility]* Problem [...] of this encounter (statuses as of 03/30/2022) [facility]* Problem [...] of this encounter (statuses as of 04/06/2022) [facility] Problem [...] of this encounter (statuses as of 04/21/2022) [facility] Problem [...] of this encounter (statuses as of 05/04/2022) [facility] Problem [...] of this encounter (statuses as of 05/24/2022) [facility] Problem [...] of this encounter (statuses as of 06/01/2022) [facility] Problem [...] of this encounter (statuses as of 06/29/2022) [facility] Problem [...] of this encounter (statuses as of 07/24/2022) [facility] Problem [...] of this encounter (statuses as of 07/24/2022) [facility] Problem [...] of this encounter (statuses as of 08/13/2022) [facility] Problem [...] of this encounter (statuses as of 08/15/2022) [facility] Problem [...] of this encounter (statuses as of 09/08/2022) [facility] Problem [...] of this encounter (statuses as of 09/11/2022) [facility] Problem [...] of this encounter (statuses as of 09/15/2022) [facility] Problem [...] of this encounter (statuses as of 09/26/2022) [facility] Problem [...] of this encounter (statuses as of 10/10/2022) [facility] Problem [...] of this encounter (statuses as of 10/13/2022) [facility] Problem [...] of this encounter (statuses as of 10/27/2022) [facility] Problem [...] of this encounter (statuses as of 10/27/2022) [facility] Problem [...] of this encounter (statuses as of 10/31/2022) [facility] Problem [...] of this encounter (statuses as of 10/31/2022) [facility] Problem [...] of this encounter (statuses as of 11/02/2022) [facility] Problem [...] of this encounter (statuses as of 11/10/2022) [facility] Problem [...] of this encounter (statuses as of 11/23/2022) [facility] Problem [...] of this encounter (statuses as of 12/07/2022) [facility] Problem [...] of this encounter (statuses as of 12/07/2022) [facility] Problem [...] of this encounter (statuses as of 12/15/2022) [facility] Problem [...] of this encounter (statuses as of 12/20/2022) [facility] Problem [...] of this encounter (statuses as of 12/24/2022) [facility]2019 History of Past illness Narrative* Problem [...] of this encounter (statuses as of 12/24/2022) [facility] History of Past illness Narrative* Problem [...] of this encounter (statuses as of 01/04/2023) [facility] History of Past illness Narrative* Problem [...] of this encounter (statuses as of 01/05/2023) [facility] History of Past illness Narrative* Problem [...] of this encounter (statuses as of 01/10/2023) [facility] History of Past illness Narrative* Problem [...] of this encounter (statuses as of 01/18/2023) [facility] History of Past illness Narrative* Problem [...] of this encounter (statuses as of 01/24/2023) [facility] History of Past illness Narrative* Problem [...] of this encounter (statuses as of 02/03/2023) [facility] History of Past illness Narrative* Problem [...] of this encounter (statuses as of 02/08/2023) [facility] History of Past illness Narrative* Problem [...] of this encounter (statuses as of 03/24/2023) [facility] History of Past illness Narrative* Problem [...] of this encounter (statuses as of 03/27/2023) [facility] History of Past illness Narrative* Problem [...] as of this encounter (statuses as of 04/01/2023) [facility] History of Past illness Narrative* Problem [...] as of this encounter (statuses as of 04/03/2023) [facility] History of Past illness Narrative* Problem [...] as of this encounter (statuses as of 04/30/2023) [facility]* Chief Complaint BLOOD IN SPUTUM DEBILITY Reason for Visit Colitis Confusion COVID-19 Generalized weakness Histoplasmosis [facility] Work Phone: Discharge summary Author Jasmyn Chan [facility] April 05, 2023 11:35am Note Date/Time April 05, 2023 11:26am [facility] Medical Records Department [address] [place] [address] Transfer to [facility] MR#: [id number] Acct: [id number] Name: HAYDEE BUSTAMANTE Rep #:[id number] : 1945 77 From: Jasmyn Chan DO PCP: Dr. Claudine Durán MD Status:AD M IN Certification of patient admission REQUIRED AT TIME OF ADMISSION. I CERTIFY THAT POST-HOSPITAL ECF SERVICES ARE REQUIRED TO BE GIVEN ON AN IN-PATIENT BASIS BECAUSE OF THE ABOVE NAMED PATIENT'S NEED FOR SKILLED NURSING CARE ON A CONTINUING BASIS FOR THE CONDITION(S) FOR WHICH HE/SHE WAS RECEIVING IN-PATIENT HOSPITAL SERVICES PRIOR TO HIS/HER TRANSFER TO THE F. 04/05/23 1135<Electronically signed by Jasmyn Chan DO> Diet Diet Order/Speech Therapy: 04/03/23 02:08 Diet: Regular - General Is pt able to select menu?: Yes Routine Orders/Code Status Routine Lab Work: CBC (Daily x 5 days starting 04/06/2023, notify attending if platelet count falls below 20,000) Code Status: Full Code Wound(s) Right leg: Wound Type: scattered blisters Dressing Change: Adaptic left foot: Wound Type: open blisters Dressing Change: Adaptic right foot: Wound Type: scattered blisters Dressing Change: Adaptic right lateral heel: Wound Type: Pressure Injury Dressing Change: dry well padded dressing Therapies Weight Bearing: Full weight bearing Physical Therapy: Eval and Treat Occupational Therapy: Eval and Treat Problem/Diagnosis (1) Thrombocytopenia: Status: Acute Code(s): D69.6 - Thrombocytopenia, unspecified (2) Anemia: Status: Chronic Code(s): D64.9 - Anemia, unspecified (3) Rheumatoid arthritis: Status: Acute Code(s): M06.9 - Rheumatoid arthritis, unspecified Plan 1. Right lower extremity cellulitis-resolved at this time, patient completed a course of antibiotics #2 acute on chronic anemia requiring blood transfusion-etiology appears to be upper GI hemorrhage from actively bleeding gastric ulcer #3 gastric ulcers-continue PPI #4 duodenitis-continue PPI #5 acute debility #6 histoplasmosis-patient is currently on itraconazole, this appears to be a long-term medication #7 thrombocytopenia-etiology unclear, patient's platelet count will be monitored, hematology recommends not resuming the patient's Coumadin until her plateletcount is above 50,000, patient will need a platelet transfusion unless her platelet count falls to 15,000 or below #8 severe acute protein and caloric malnutrition due to recent COVID, hospitalizations, GI dysfunction as evidenced by unintentional 7% weight loss x 1 week, estimating p.o. intake meeting less than 50% of estimated energy needs for over a week-diet will be advanced as tolerated to his transitional, Ensure with med Pass when diet is advanced, nutritional services is participating in her care Total clinical time spent by myself addressing the patient's medical issues, reviewing all of her data, and collaborating with patient's care team: 25 minutes Allergies/Procedures Done in Hospital Allergies Penicillins Allergy (Severe, Verified 03/28/23 16:32) Anaphylaxis Procedures: None Type of Care/Length of Stay Estimated LOS: Convalescent Care Less Than 30 days Type of Care Needed: Skilled Rehab Potential: Good Prognosis: Good Additional Orders/Day of Discharge H&P will serve as current which was dated: 03/31/23 Day of Discharge: 04/05/23 Dietary and Speech Recommendations Dietitian Recommendations/Changes: continue regular diet as tolerated; will defer ONS at this time as it appears PO intake is improving. Discharge Plan Admission Admit Date/Time: 03/31/23 20:14 Primary Reason for Your Visit: Acute upper GI bleed with anemia, debility, cellulitis of the legs Attending Provider: Jasmyn Chan Primary Care Provider: Claudine Durán Consulting Providers: Laine Veras; Alisa Mathew; Naman Meredith; Lg Rios; Rachael Weiss; Stevan Rodríguez; Jing Reyes; Efrain Quevedo; Frederick Dick; Geno Rush; Adarsh Prakash; Alcides Abel; London Sandra; Chris Royal; Leobardo Calloway; Jorgito Agarwal; Rosalina Herrera [employer] Discharge Orders/Prescriptions Prescriptions: New acetaminophen 325 mg Tablet 650 mg PO Q6H PRN PRN (Reason: Pain 1-10 Or Fever >100.7) Qty: 0 0RF ipratropium-albuterol 0.5 mg-3 mg(2.5 mg base)/3 mL Solution For Nebulization 3 ml inhalation Q6HWA.RT Qty: 0 0RF albuterol sulfate 2.5 mg /3 mL (0.083 %) Solution For Nebulization 2.5 mg inhalation Q2H PRN PRN (Reason: SOB/Wheezing) Qty: 0 0RF gabapentin 300 mg Capsule 300 mg PO Q12 Qty: 0 0RF budesonide 0.5 mg/2 mL Suspension For Nebulization 0.5 mg inhalation Q12H.RT Qty: 0 0RF fluticasone propionate 50 mcg/actuation [place],Suspension 1 spray NASAL DAILY Qty: 0 0RF itraconazole 100 mg Capsule 200 mg PO BIDCM Qty: 0 0RF oxycodone 5 mg Tablet 5 mg PO Q4H PRN PRN (Reason: Pain Score 4-10) 2 Days Qty: 6 0RF sennosides-docusate sodium [Stool Softener-Stimulant Laxat] 8.6-50 mg Tablet 2 tab PO BID PRN PRN (Reason: Constipation) Qty: 0 0RF pantoprazole 40 mg Tablet,Delayed Release (Dr/Ec) 40 mg PO BID Qty: 0 0RF Continued albuterol sulfate 90 mcg/actuation HFA aerosol inhaler 2 puff INHALATION Q4H PRN (Reason: shortness of breath or wheezing) PreserVision AREDS 2,148 mcg-113 mg-45 mg-17.4mg tablet 2 tab PO BID Rx Instructions: administer with AM and PM meals multivitamin [Daily Multi-Vitamin] Tablet 1 tab PO DAILY cholecalciferol (vitamin D3) 25 mcg (1,000 unit) capsule 25 mcg PO DAILY Ocutabs Tablet 2 tab PO DAILY Discontinued gabapentin 300 mg capsule 300 mg PO Q12H Humira(CF) Pen 40 mg/0.4 mL pen injector kit 40 mg SUBCUT Q14D Hold Instructions: Resume on 04/24/23. HOLD UNTIL ALLOWED TO RESTART GIVEN RECENT DISSEMINATED HISTOPLASMOSIS AND COVID. irbesartan-hydrochlorothiazide 150-12.5 mg tablet 1 tab PO DAILY Hold Instructions: Resume on 04/24/23. May resume if appropriate and repeat BP assessments and renal function normalized upon PCP re-evaluation at follow-up. naproxen 500 mg tablet 500 mg PO Q12H pantoprazole 40 mg tablet,delayed release (DR/EC) 40 mg PO DAILY warfarin 5 mg tablet 5 mg PO .COMPLEX Rx Instructions: 5 mg orally Sunday, Sunday; 7.5 mg orally Sunday, , Sunday, Sunday, Sunday potassium chloride [Klor-Con M20] 20 mEq tablet,ER particles/crystals 20 meq PO BID furosemide [Lasix] 20 mg tablet 20 mg PO DAILY 14 Days Qty: 14 0RF ciprofloxacin HCl 500 mg tablet 500 mg PO Q12H dexamethasone 6 mg tablet 6 mg PO DAILY loperamide [Anti-Diarrheal (loperamide)] 2 mg capsule 4 mg PO TID metronidazole 500 mg tablet 500 mg PO TID No Action fluticasone propionate 50 mcg/actuation spray,suspension 1 spray INTRANASAL DAILY budesonide-formoterol [Symbicort] 160-4.5 mcg/actuation HFA aerosol inhaler 2 puff INHALATION Q12H Spiriva Respimat 2.5 mcg/actuation mist 2 puff INHALATION Q24H itraconazole 10 mg/mL solution 100 mg PO Q8H Rx Instructions: administer on an empty stomach Referrals / Follow Up: Claudine Durán MD [Primary Care Provider] - Disposition Disposition (needs filled in before D/C Order can be placed): [facility] 04/05/23 [id number] <Electronically signed by Jasmyn Chan DO> Cosigner Signature (if applicable): CC: MEENU Herrera; Dr. Alisa Mathew MD; Dr. Naman Meredith MD; Dr. Geno Rush MD; Dr. Lg Rios MD; Dr. Rachael Weiss MD; Dr. Stevan Rodríguez MD; Dr. Adarsh Prakash MD; Dr. Jing Reyes MD; Dr. Claudine Durán MD; Dr. Alcides Abel MD; Dr. Efrain Quevedo MD; Dr. Laine Veras MD; Dr. Frederick Dick DO; Dr. London Sandra MD; Dr. Leobardo Calloway MD; Dr. Chris Royal MD; Dr. Jorgito Agarwal DO ~ [facility] Work Phone: Evaluation note* Diagnosis Screening mammogram, encounter for- Primary documented in this encounter [facility] note* Diagnosis Essential hypertension- Primary Unspecified essential hypertension History of COVID-19 Cough Bronchiectasis without complication (HCC) Bronchiectasis without acute exacerbation Gastroesophageal reflux disease without esophagitis Esophageal reflux Aortic stenosis with bicuspid valve 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 rheumatoid factor (HCC) documented in this encounter [facility] note* Diagnosis Embolism and thrombosis (HCC) Embolism and thrombosis of unspecified site documented in this encounter [facility] note* Diagnosis Moderate COPD (chronic obstructive pulmonary disease) (HCC)- Primary Chronic airway obstruction, not elsewhere classified Bronchiectasis without complication (HCC) Bronchiectasis without acute exacerbation Centrilobular emphysema (HCC) Other emphysema documented in this encounter [facility] note* Diagnosis Cough due to bronchospasm Acute bronchospasm documented in this encounter [facility] note* Diagnosis Embolism and thrombosis (HCC) Embolism and thrombosis of unspecified site documented in this encounter [facility] noteNo assessment information availableWMiami [facility] Work Phone: Evaluation note* Diagnosis Personal history of DVT (deep vein thrombosis)- Primary Personal history of venous thrombosis and embolism documented in this encounter [facility] note* Diagnosis Aortic stenosis with bicuspid valve- Primary Essential hypertension Unspecified essential hypertension documented in this encounter [facility] note* Diagnosis Personal history of DVT (deep vein thrombosis)- Primary Personal history of venous thrombosis and embolism documented in this encounter [facility] note* Diagnosis Encounter for screening mammogram for breast cancer documented in this encounter [facility] note* Diagnosis Gastroesophageal reflux disease without esophagitis- Primary Esophageal reflux Other viral warts Elevated LDL cholesterol level Pure hypercholesterolemia Essential hypertension Unspecified essential hypertension Need for COVID-19 vaccine COPD without exacerbation (HCC) Bronchiectasis without complication (HCC) Bronchiectasis without acute exacerbation [facility] Toe infection- Primary Unspecified local infection of skin and subcutaneous tissue Sinobronchitis Unspecified sinusitis (chronic) [facility] Personal history of DVT (deep vein thrombosis)- Primary Personal history of venous thrombosis and embolism [facility] Diagnosis Abnormal mammogram Abnormal mammogram, unspecified [facility] Diagnosis Ulcer of toe of left foot, limited to breakdown of skin (HCC)- Primary Hammer toe of left foot Onychodystrophy Other specified disease of nail [facility] Diagnosis Embolism and thrombosis (HCC) Embolism and thrombosis of unspecified site [facility] Diagnosis Ulcer of toe of left foot, limited to breakdown of skin (HCC) Hammer [facility] Ulcer of toe of left foot, limited to breakdown of skin (HCC)- Primary Hammer toe of left foot Hallux rigidus of left foot Hallux rigidus [facility] Diagnosis COPD without exacerbation (HCC) Essential hypertension Unspecified essential hypertension [facility] Diagnosis Essential hypertension- Primary Unspecified essential hypertension Chronic obstructive pulmonary disease, unspecified COPD type (HCC) Encounter for immunization Need for other specified prophylactic vaccination against single bacterial disease Gastroesophageal reflux disease without esophagitis Esophageal reflux Bronchiectasis without complication (HCC) Bronchiectasis without acute exacerbation Aortic stenosis with bicuspid valve [facility] Diagnosis Lung nodules- Primary Other nonspecific abnormal finding of lung field Bronchiectasis without complication (HCC) Bronchiectasis without acute exacerbation Chronic obstructive pulmonary disease, unspecified COPD type (HCC) 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 rheumatoid factor (HCC) [facility] Diagnosis Personal history of DVT (deep vein thrombosis)- Primary Personal history of venous thrombosis and embolism [facility] Diagnosis 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 rheumatoid factor (HCC) Low back pain with right-sided sciatica, unspecified back pain laterality, unspecified chronicity [facility] Diagnosis 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 rheumatoid factor (HCC) Low back pain with right-sided sciatica, unspecified back pain laterality, unspecified chronicity Pseudogout Other disorder of calcium metabolism [facility] Diagnosis Personal history of DVT (deep vein thrombosis)- Primary Personal history of venous thrombosis and embolism [facility] Diagnosis Essential hypertension- Primary Unspecified essential hypertension Chronic anticoagulation Long-term (current) use of 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 Aortic stenosis with bicuspid valve 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 rheumatoid factor (HCC) COPD without exacerbation (HCC) Bronchiectasis without complication (HCC) Bronchiectasis without acute exacerbation Acquired hammertoe of left foot Early dry stage nonexudative age-related macular degeneration of both eyes [facility] Diagnosis Personal history of DVT (deep vein thrombosis)- Primary Personal history of venous thrombosis and embolism [facility] Diagnosis Personal history of DVT (deep vein thrombosis)- Primary Personal history of venous thrombosis and embolism [facility] Diagnosis Personal history of DVT (deep vein thrombosis)- Primary Personal history of venous thrombosis and embolism [facility] Diagnosis Lung nodules- Primary Other nonspecific abnormal finding of lung field Bronchiectasis without complication (HCC) Bronchiectasis without acute exacerbation 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 rheumatoid factor (HCC) [facility] Lung nodules- Primary Other nonspecific abnormal finding of lung field Bronchiectasis without complication (HCC) Bronchiectasis without acute exacerbation [facility] Diagnosis Personal history of DVT (deep vein thrombosis)- Primary Personal history of venous thrombosis and embolism [facility] Diagnosis Aortic stenosis with bicuspid valve- Primary Essential hypertension Unspecified essential hypertension History of recurrent deep vein thrombosis (DVT) [facility] Diagnosis 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 rheumatoid factor (HCC) Low back pain with right-sided sciatica, unspecified back pain laterality, unspecified chronicity Pseudogout Other disorder of calcium metabolism [facility] Diagnosis snf current use of anticoagulant therapy- Primary Long-term (current) use of 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 [facility] Diagnosis Essential hypertension- Primary Unspecified [...] with bicuspid valve [facility] Diagnosis Chronic anticoagulation Long-term (current) use of 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 [facility] Diagnosis Chronic anticoagulation Long-term (current) use of 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 [facility] Diagnosis Personal history of DVT (deep vein thrombosis)- Primary Personal history of venous thrombosis and embolism [facility] Diagnosis Embolism and thrombosis (HCC)- Primary Embolism and thrombosis of unspecified site [facility]* Diagnosis DDD (degenerative disc disease), lumbar- Primary Degeneration of lumbar or lumbosacral intervertebral disc Hip pain, acute, left Age-related osteoporosis without current pathological fracture Senile osteoporosis [facility] Diagnosis Embolism and thrombosis (HCC)- Primary Embolism and thrombosis of unspecified site [facility] Diagnosis 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 rheumatoid factor (HCC) Low back pain with right-sided sciatica, unspecified back pain laterality, unspecified chronicity [facility] Diagnosis Lung nodules Other nonspecific abnormal finding of lung field [facility] Diagnosis Encounter for screening mammogram for breast cancer [facility] Diagnosis Encounter for immunization- Primary Need for other specified prophylactic vaccination against single bacterial disease [facility]* Diagnosis Embolism and thrombosis (HCC)- Primary Embolism and thrombosis of unspecified site [facility] Diagnosis Personal history of DVT (deep vein thrombosis)- Primary Personal history of venous thrombosis and embolism [facility] Diagnosis Acute cough- Primary [facility] Diagnosis Onset Date Resolution Status Colitis acute Confusion acute COVID-19 acute Generalized weakness acute Histoplasmosis acute [facility] Work Phone: Evaluation note* Diagnosis Onset Date Resolution Status Confusion acute COVID-19 acute Generalized weakness acute Histoplasmosis acute [facility] Work Phone: Evaluation note* Diagnosis Onset Date Resolution Status Confusion acute COVID-19 acute Generalized weakness acute Histoplasmosis acute Adult failure to thrive acut e Cellulitis acute Generalized weakness acute History of DVT (deep vein thrombosis) acute Leg edema acute Rheumatoid arthritis acute Weakness acute [facility] Work Phone: Evaluation note* Diagnosis Hypoalbuminemia- Primary Other disorders of plasma protein metabolism Elevated alkaline phosphatase level Other nonspecific abnormal serum enzyme levels Elevated LFTs Other abnormal blood chemistry Anemia, unspecified type Leukocytosis, unspecified type documented in this encounter [facility] note* Diagnosis Onset Date Resolution Status Adult failure to thrive acut e Cellulitis acute History of DVT (deep vein thrombosis) acute Leg edema acute Rheumatoid arthritis acute Thrombocytopenia acute Weakness acute Anemia chronic [facility] Work Phone: Evaluation note* Diagnosis Onset Date Resolution Status Histoplasmosis acute History of DVT (deep vein thrombosis) acute Rheumatoid arthritis acute Thrombocytopenia acute Weakness acute Anemia chronic Cellulitis resolved Acute anemia acute Cellulitis of right lower extremity acute Debility acute Duodenitis acute Edema acute Failure to thrive acute Gastric ulcer acute Histoplasmosis acute History of blood clots acute Rheumatoid arthritis acute Thrombocytopenia acute COPD (chronic obstructive pulmonary disease) chronic [facility] Work Phone: Evaluation note* Diagnosis Onset Date Resolution Status Histoplasmosis acute History of DVT (deep vein thrombosis) acute Rheumatoid arthritis acute Thrombocytopenia acute Weakness acute Anemia chronic Cellulitis resolved Debility acute Duodenitis acute Gastric ulcer acute Histoplasmosis acute History of blood clots acute Rheumatoid arthritis acute Thrombocytopenia acute COPD (chronic obstructive pulmonary disease) chronic Acute anemia resolved Cellulitis of right lower extremity resolved Edema resolved Failure to thrive resolved [facility] Work Phone: Evaluation note* Diagnosis 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 rheumatoid factor (HCC) Low back pain with right-sided sciatica, unspecified back pain laterality, unspecified chronicity [facility] Diagnosis 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 rheumatoid factor (HCC) Low back pain with right-sided sciatica, unspecified back pain laterality, unspecified chronicity Pseudogout Other disorder of calcium metabolism [facility] Diagnosis Personal history of DVT (deep vein thrombosis)- Primary Personal history of venous thrombosis and embolism [facility] Diagnosis Acute pain of right knee- Primary Chronic anticoagulation Long-term (current) use of 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 Hip pain, acute, left Pain and swelling of right lower leg [facility] Diagnosis Personal history of DVT (deep vein thrombosis)- Primary Personal history of venous thrombosis and embolism [facility] Diagnosis Anemia, unspecified type- Primary Elevated LFTs Other abnormal blood chemistry COPD without exacerbation (HCC) Essential hypertension Unspecified essential hypertension Cough due to bronchospasm Acute bronchospasm Chronic anticoagulation Long-term (current) use of 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 Encounter for long-term current use of medication Gastric ulcer with hemorrhage, unspecified chronicity [facility] Diagnosis Right knee pain, unspecified chronicity- Primary [facility] 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- Primary Long-term (current) use of 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 [facility] Diagnosis COPD without exacerbation (HCC) [facility] Diagnosis COPD without exacerbation (HCC) [facility]* Diagnosis 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 rheumatoid factor (HCC)- Primary Edema, unspecified type Encounter for therapeutic drug monitoring [facility]* Diagnosis Personal history of DVT (deep vein thrombosis)- Primary Personal history of venous thrombosis and embolism [facility] Diagnosis 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 rheumatoid factor (HCC)- Primary Pain and swelling of right knee [facility] Diagnosis Nonrheumatic aortic valve stenosis- Primary Aortic valve disorders Mitral valve stenosis, non-rheumatic Mitral valve disorders Essential hypertension Unspecified essential hypertension Pericardial effusion (noninflammatory) Leg edema 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 Long-term (current) use of 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 [facility] Diagnosis Personal history of DVT (deep vein thrombosis)- Primary Personal history of venous thrombosis and embolism [facility] Diagnosis Disseminated histoplasmosis Histoplasmosis, unspecified without mention of manifestation [facility] Diagnosis COPD without exacerbation (HCC) [facility] Diagnosis Disseminated histoplasmosis- Primary Histoplasmosis, unspecified without mention of manifestation Bronchiectasis without complication (HCC) Bronchiectasis without acute exacerbation COPD without exacerbation (HCC) Rheumatoid arthritis with positive rheumatoid factor, involving unspecified site (HCC) History of immunosuppressive therapy Personal history of immunosuppressive therapy History of penicillin allergy Personal history of allergy to penicillin Encounter for long-term (current) use of antibiotics Counseling, unspecified H/O: GI bleed Personal history of other diseases of digestive system [facility] Diagnosis Edema, unspecified type- Primary [facility]* Diagnosis Personal history of DVT (deep vein thrombosis)- Primary Personal history of venous thrombosis and embolism [facility]* Diagnosis Anemia, unspecified type- Primary Bilateral lower extremity edema Edema Chronic anticoagulation Long-term (current) use of 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 Moderate to severe aortic stenosis Aortic valve disorders Disseminated histoplasmosis Histoplasmosis, unspecified without mention of manifestation Nodule of lower lobe of left lung Encounter for long-term current use of medication [facility] Diagnosis Edema, unspecified type [facility]* Diagnosis Personal history of DVT (deep vein thrombosis)- Primary Personal history of venous thrombosis and embolism [facility] Diagnosis 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 rheumatoid factor (HCC) Low back pain with right-sided sciatica, unspecified back pain laterality, unspecified chronicity [facility]* Diagnosis Disseminated histoplasmosis Histoplasmosis, unspecified without mention of manifestation [facility] Diagnosis Aortic valve stenosis, etiology of cardiac valve disease unspecified- Primary Mitral valve stenosis, unspecified etiology Pericardial effusion Unspecified disease of pericardium Gastrointestinal hemorrhage, unspecified gastrointestinal hemorrhage type Rheumatoid arthritis with positive rheumatoid factor, involving unspecified site (HCC) Edema, unspecified type Blood loss anemia Iron deficiency anemia secondary to blood loss (chronic) [facility]* Diagnosis Aortic stenosis with bicuspid valve- Primary Pericardial effusion Unspecified disease of pericardium Essential hypertension Unspecified essential hypertension Chronic heart failure with preserved ejection fraction (HFpEF) (HCC) Mitral valve stenosis, non-rheumatic Mitral valve disorders Nonrheumatic tricuspid valve regurgitation Tricuspid valve disorders, specified as nonrheumatic [facility] Diagnosis Personal history of DVT (deep vein thrombosis)- Primary Personal history of venous thrombosis and embolism [facility] Diagnosis Chronic anticoagulation Long-term (current) use of 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 [facility]* Diagnosis Personal history of DVT (deep vein thrombosis)- Primary Personal history of venous thrombosis and embolism [facility] Diagnosis Acute cough [facility]* Diagnosis Disseminated histoplasmosis Histoplasmosis, unspecified without mention of manifestation [facility] Diagnosis Personal history of DVT (deep vein thrombosis)- Primary Personal history of venous thrombosis and embolism [facility]* Diagnosis Personal history of DVT (deep vein thrombosis)- Primary Personal history of venous thrombosis and embolism [facility] Diagnosis COPD without exacerbation (HCC) [facility] Diagnosis Disseminated histoplasmosis- Primary Histoplasmosis, unspecified without mention of manifestation Bronchiectasis without complication (HCC) Bronchiectasis without acute exacerbation COPD without exacerbation (HCC) Rheumatoid arthritis with positive rheumatoid factor, involving unspecified site (HCC) History of immunosuppressive therapy Personal history of immunosuppressive therapy History of penicillin allergy Personal history of allergy to penicillin Encounter for long-term (current) use of antibiotics Counseling, unspecified [facility] Diagnosis Nonrheumatic aortic valve stenosis- Primary Aortic valve disorders Encounter for preprocedural cardiovascular examination Pre-operative cardiovascular examination Aortic valve disorder Aortic valve disorders [facility]* Diagnosis Rheumatoid arthritis with positive rheumatoid factor, involving unspecified site (HCC)- Primary Nonrheumatic aortic valve stenosis Aortic valve disorders Nonrheumatic mitral valve stenosis Pericardial effusion Unspecified disease of pericardium Histoplasmosis Histoplasmosis, unspecified without mention of manifestation [facility]* Diagnosis Personal history of DVT (deep vein thrombosis)- Primary Personal history of venous thrombosis and embolism [facility]* Diagnosis Disseminated histoplasmosis Histoplasmosis, unspecified without mention of manifestation Nonrheumatic aortic valve stenosis Aortic valve disorders [facility] Diagnosis Chronic heart failure with preserved ejection fraction (HFpEF) (HCC)- Primary Rheumatoid arthritis with positive rheumatoid factor, involving unspecified site (HCC) COPD without exacerbation (HCC) Bronchiectasis without complication (HCC) Bronchiectasis without acute exacerbation Nonrheumatic aortic valve stenosis Aortic valve disorders Screening for depression Encounter for screening examination for other mental health and behavioral disorders Nonrheumatic aortic valve stenosis Aortic valve disorders [facility] Diagnosis Personal history of DVT (deep vein thrombosis)- Primary Personal history of venous thrombosis and embolism Nonrheumatic aortic valve stenosis Aortic valve disorders [facility]* Diagnosis Nonrheumatic aortic valve stenosis- Primary Aortic valve disorders Encounter to establish care Other reasons for seeking consultation Pre-operative cardiovascular examination Mitral stenosis with insufficiency, rheumatic Mitral stenosis with insufficiency Rheumatoid arthritis with positive rheumatoid factor, involving unspecified site (HCC) Nonrheumatic aortic valve stenosis Aortic valve disorders [facility] Diagnosis Nonrheumatic aortic valve stenosis Aortic valve disorders Nonrheumatic aortic valve stenosis Aortic valve disorders [facility]* Diagnosis Nonrheumatic aortic valve stenosis Aortic valve disorders Encounter for preprocedural cardiovascular examination Pre-operative cardiovascular examination Nonrheumatic aortic valve stenosis Aortic valve disorders [facility] Diagnosis Nonrheumatic aortic valve stenosis- Primary Aortic valve disorders [facility] Diagnosis Nonrheumatic aortic valve stenosis- Primary Aortic valve disorders [facility] Diagnosis Nonrheumatic aortic valve stenosis- Primary Aortic valve disorders [facility] Diagnosis Nonrheumatic aortic valve stenosis Aortic valve disorders [facility] Diagnosis Nonrheumatic aortic valve stenosis- Primary Aortic valve disorders [facility] Diagnosis Nonrheumatic aortic valve stenosis- Primary Aortic valve disorders [facility]* Diagnosis Personal history of DVT (deep vein thrombosis)- Primary Personal history of venous thrombosis and embolism [facility] Diagnosis Nonrheumatic aortic valve stenosis- Primary Aortic valve disorders Aortic valve stenosis, etiology of cardiac valve disease unspecified [facility]* Diagnosis Nonrheumatic aortic valve stenosis- Primary Aortic valve disorders Aortic valve disorder Aortic valve disorders Aortic valve stenosis, etiology of cardiac valve disease unspecified [facility]* Diagnosis Encounter for preoperative anesthesiology assessment for cardiac surgery- Primary Aortic valve stenosis, etiology of cardiac valve disease unspecified [facility] Diagnosis Nonrheumatic aortic valve stenosis- Primary Aortic valve disorders Aortic valve stenosis, etiology of cardiac valve disease unspecified [facility]* Diagnosis Nonrheumatic aortic valve stenosis Aortic valve disorders Aortic valve disorder Aortic valve disorders Aortic valve stenosis, etiology of cardiac valve disease unspecified [facility]* Diagnosis Personal history of DVT (deep vein thrombosis)- Primary Personal history of venous thrombosis and embolism Aortic valve stenosis, etiology of cardiac valve disease unspecified [facility]* Diagnosis Nonrheumatic aortic valve stenosis- Primary Aortic valve disorders [facility] Diagnosis Nonrheumatic aortic valve stenosis- Primary Aortic valve disorders S/P TAVR (transcatheter aortic valve replacement) Heart valve replaced by other means Chronic diastolic heart failure (HCC) Chronic diastolic heart failure [facility]* Diagnosis Disseminated histoplasmosis- Primary Histoplasmosis, unspecified without mention of manifestation Bronchiectasis without complication (HCC) Bronchiectasis without acute exacerbation COPD without exacerbation (HCC) Rheumatoid arthritis with positive rheumatoid factor, involving unspecified site (HCC) History of immunosuppressive therapy Personal history of immunosuppressive therapy History of penicillin allergy Personal history of allergy to penicillin Encounter for long-term (current) use of antibiotics Counseling, unspecified [facility]* Diagnosis Medicare annual wellness visit, subsequent- Primary Routine general medical examination at a health care facility Cough due to bronchospasm Acute bronchospasm 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 rheumatoid factor (HCC) Low back pain with right-sided sciatica, unspecified back pain laterality, unspecified chronicity Chronic heart failure with preserved ejection fraction (HFpEF) (HCC) Nonrheumatic aortic valve stenosis Aortic valve disorders S/P TAVR (transcatheter aortic valve replacement) Heart valve replaced by other means [facility] Diagnosis Chronic heart failure with preserved ejection fraction (HCC)- Primary [facility]* Diagnosis COPD without exacerbation (HCC) [facility]* Diagnosis 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 rheumatoid factor (HCC) Low back pain with right-sided sciatica, unspecified back pain laterality, unspecified chronicity [facility] Diagnosis 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 rheumatoid factor (HCC) Low back pain with right-sided sciatica, unspecified back pain laterality, unspecified chronicity [facility] Diagnosis Personal history of DVT (deep vein thrombosis)- Primary Personal history of venous thrombosis and embolism S/P TAVR (transcatheter aortic valve replacement)- Primary Heart valve replaced by other means Nonrheumatic aortic valve stenosis Aortic valve disorders Nonrheumatic mitral valve stenosis Nonrheumatic tricuspid valve regurgitation Tricuspid valve disorders, specified as nonrheumatic Essential hypertension Unspecified essential hypertension Disseminated histoplasmosis Histoplasmosis, unspecified without mention of manifestation History of recurrent deep vein thrombosis (DVT) History of GI bleed Personal history of other diseases of digestive system History of COPD Personal history of other diseases of respiratory system [facility] Diagnosis S/P TAVR (transcatheter aortic valve replacement)- Primary Heart valve replaced by other means Nonrheumatic aortic valve stenosis Aortic valve disorders Nonrheumatic mitral valve stenosis Nonrheumatic tricuspid valve regurgitation Tricuspid valve disorders, specified as nonrheumatic Essential hypertension Unspecified essential hypertension Disseminated histoplasmosis Histoplasmosis, unspecified without mention of manifestation History of recurrent deep vein thrombosis (DVT) History of GI bleed Personal history of other diseases of digestive system History of COPD Personal history of other diseases of respiratory system [facility] Diagnosis Personal history of DVT (deep vein thrombosis)- Primary Personal history of venous thrombosis and embolism [facility] Author Laine Veras [facility] March 26, 2023 4:04pm Note Date/Time March 26, 2023 4 :05pm [facility] Medical Records Department [address] [place] [address] H&P Exam - Hospitalist 03/26/23 1551 MR#: [id number] Acct: [id number] Name: HAYDEE BUSTAMANTE Rep #:[id number] : 1945 77 From: Laine Veras MD PCP: Dr. Claudine Durán MD Status:AD M ADAIR Location: MS3 [id number] HPI - General General Date of Admission: 03/26/23 Date of Service: 03/26/23 Chief Complaint: Confusion, shortness of breath HPI Narrative HAYDEE BUSTAMANTE, is a 77-year-old female history of hypertension, GERD, RA, PE, severe aortic stenosis and moderate pericardial effusion, histoplasmosis presented to [facility] ED 03/26/2023 with shortness of breath andinability to care for self at home. Recently seen 03/21/2023 in [place] ED and transferred to [facility] due to concern for bowel perforation which was medically managed with Cipro and Flagyl. Additionally was subsequently found tohave disseminated histoplasmosis and was started on itraconazole and also treated with remdesivir and dexamethasone for COVID-19 which was diagnosed priorto admission. She did not require any surgery and Coumadin was restarted prior to discharge. She was also found to have severe aortic stenosis and pericardialeffusion and advised to follow-up on an outpatient basis. She was just discharged from [facility] yesterday and today legs are weeping and she is urinating on herself. She was discharged home on Cipro and Flagyl and itraconazole twice daily as well as 4 more days of dexamethasone and given Imodium for diarrhea. She was instructed to hold her hydrochlorothiazide and irbesartan due to kidney function. In [facility] ED patient 96% on room air with a heart rate of 94 and blood pressure 122/74. White blood cell count 16.9 however patient is on steroids, chest x-ray with mild degree of increased reticular nodular pattern at lung bases but no acute infiltrate. BNP was 322 with troponin of 20. Given patient's inability to care for self at home hospitalist contacted for admission. Patientseen at bedside, patient tangential in normal sinus flight of ideas and some bizarre thinking. She reports that she got home yesterday from [facility] and was talking about the fact that she was given a "urine pietro" and could not pee until today, has continued to have some diarrhea that has not resolved. Patient also reports some leg swelling and shortness of breath this morning but was talking about that in relation to her medications and reading the side effects, she reports she became mostly concerned this morning when she was trying to read something and could not understand what she was reading and also felt like she could not walk and she does not feel she can care for herself at home. Does report a chronic cough and some sore throat associated with that, denies any chest pain, patient was alert and oriented but very hard to direct inconversation. [facility] Medical History (Updated 03/26/23 @ 15:[address] Laine Veras MD) Colitis Histoplasmosis Pulmonary embolism Home Medications adalimumab 40 mg/0.4 mL subcutaneous pen kit (Humira(CF) Pen) 40 mg subcut Q14D 03/19/23 [History Last Taken Unknown] albuterol sulfate 90 mcg/actuation aerosol inhaler 1 puff inhalation Q4H PRN shortness of breath or wheezing 03/19/23 [History Last Taken Unknown] budesonide-formoterol HFA 160 mcg-4.5 mcg/actuation aerosol inhaler (Symbicort) 2 puff inhalation Q12H 03/19/23 [History Last Taken Unknown] fluticasone propionate 50 mcg/actuation nasal spray,suspension 2 spray intranasal Q12H 03/19/23 [History Last Taken Unknown] gabapentin 300 mg capsule 300 mg PO Q12H 03/19/23 [History Last Taken Unknown] irbesartan 150 mg-hydrochlorothiazide 12.5 mg tablet 1 tab PO DAILY 03/19/23 [History Last Taken Unknown] itraconazole 100 mg capsule 100 mg PO 03/19/23 [History Last Taken Unknown] leucovorin calcium 5 mg tablet 15 mg PO DAILY 03/19/23 [History Last Taken Unknown] methotrexate sodium 2.5 mg tablet 2.5 mg PO QWEEK 03/19/23 [History Last Taken Unknown] multivitamin (Daily Multi-Vitamin tablet) 1 tab PO DAILY 03/19/23 [History Last Taken Unknown] naproxen 500 mg tablet 500 mg PO Q12H 03/19/23 [History Last Taken Unknown] pantoprazole 40 mg tablet,delayed release 40 mg PO DAILY 03/19/23 [History Last Taken Unknown] potassium chloride 20 mEq tablet,extended release(part/cryst) (Klor-Con M) 20 meq PO BID 03/19/23 [History Last Taken Unknown] tiotropium bromide 2.5 mcg/actuation mist for inhalation (Spiriva Respimat) 2 puff inhalation Q24H 03/19/23 [History Last Taken Unknown] vitamins A,C,V-blxq-ozcakc 2,148 mcg-113 mg-45 mg-17.4 mg tablet (PreserVision AREDS) 2 tab PO BID 03/19/23 [History Last Taken Unknown] warfarin 5 mg tablet 5 mg PO DAILY 03/19/23 [History Last Taken Unknown] Allergy/AdvReac Type Severity Reaction Status Date / Time Penicillins Allergy Severe Anaphylaxis Verified 03/26/23 10:48 Surgical History Hx of foot surgery Social History Smoking Status: Never smoker ROS ROS Narrative General: Reports she was cold this morning but denies fevers HENT: Denies headache, denies stuffy nose, chronic sore throat with her chronic cough EYES: Denies changes in vision Resp: Has had some increased shortness of breath and cough Cardiac: Denies chest pain GI: Denies abdominal pain, still has some diarrhea, denies nausea/vomiting : Did urinate earlier Extremity: Some swelling in bilateral lower extremities MSK: Some generalized weakness Neuro: Denies any numbness/tingling Heme: Denies any bleeding or bruising Skin: Denies rashes Psychiatric: No complaints voiced Vital Signs Vital Signs Vital Signs: 03/26/23 10:48 03/26/23 11:23 03/26/23 13:19 Temperature 97.3 F L Temperature Source Temporal Pulse Rate 94 Respiratory Rate 23 H Respiratory Effort Normal Non-Labored Respiratory Depth Normal Respiratory Pattern Normal Blood Pressure 122/74 H Blood Pressure Mean 90 Pulse Ox 96 Oxygen Delivery Method Room Air Room Air Room Air 03/26/23 15:00 Temperature Temperature Source Pulse Rate 87 Respiratory Rate 19 H Respiratory Effort Respiratory Depth Respiratory Pattern Blood Pressure 128/75 H Blood Pressure Mean 92 Pulse Ox 95 Oxygen Delivery Method Room Air Weight Weight: 63.5 kg Body Mass Index (BMI) 23.3 Physical Exam Narrative General: Alert, oriented, difficult to direct in conversation HEENT: Atraumatic, normocephalic, dry mouth Eyes: Anicteric, normal conjunctiva, extraocular movements grossly intact Neck: Supple Respiratory: Clear to auscultation bilaterally, normal respiratory effort Cardiovascular: Regular rate and rhythm GI: Soft, nontender, nondistended Extremities: 1+ lower extremity edema Musculoskeletal: Moving all extremities Neuro: No overt focal neurological deficits Skin: No rashes appreciated Psych: Patient attempts to be cooperative, somewhat tangential and at times flight of ideas and has difficulty directly answering questions and has some bizarre content Results Lab / Micro Data 03/26/23 13:15 03/26/23 13:15 Labs: Laboratory Results - last 24 hr 03/26/23 13:15: WBC 16.9 H, RBC 3.29 L, Hgb 8.9 L, Hct 26.8 L, MCV 81.5, MCH 27.1, MCHC 33.2, RDW Std Deviation 48.8 H, RDW Coeff of Catarino 19.6 H, Plt Count 169, MPV 9.9, Immature Gran % (Auto) 3.700 H, Neut % (Auto) 80.3 H, Lymph % (Auto) 6.3 L, [place] % (Auto) 9.6, Eos % (Auto) 0.0, Baso % (Auto) 0.1, Absolute Neuts (auto) 13.6 H, Absolute Lymphs (auto) 1.06, Nucleated RBC % 0.1, Differential Comment SCANNED, Diff Path Review June foll, PT 33.3 H, INR 3.2, Sodium 135 L, Potassium 3.6, Chloride 101, Carbon Dioxide 27.0, Anion Gap 7, BUN31 H, Creatinine 0.89, Estim Creat Clear Calc 49.15, Est GFR (MDRD) Af Amer 79, Est GFR (MDRD) Non-Af 66, BUN/Creatinine Ratio 34.8 H, Glucose 111 H, Calcium 8.1 L, Troponin I High Sens 20, B-Natriuretic Peptide 322.3 H Imaging Radiology Impression Chest X-Ray 03/26/23 13:00 IMPRESSION: Mild degree of increased reticular nodular pattern at the lung bases. No acute infiltrate is seen. Electronically Signed: Geo Ni MD at 13:20 EST , Assessment & Plan Assessment/Plan (1) Confusion: (2) Generalized weakness: (3) Histoplasmosis: (4) Colitis: (5) COVID-19: PLAN: Plan #Weakness, inability to care for self and changes in mental status -Unsafe to d/c home so hospitalist contacted for admission -PT/OT -SW and CM c/s -Patient with some almost flight of ideas and tangential speech with some bizarre content, may be due to her being on steroids however it is unclear what her baseline is -Will check TSH -Also awaiting UA #Shortness of breath -Chest x-ray with mild degree of increased reticular nodular pattern at lung bases but no acute infiltrate -96% on room air -Likely multifactorial -BNP 322 -Troponin 20 -Continue home inhalers -Do not hear significant crackles in lungs and patient did not look to be short of breath, will monitor daily weights and I's and O's -Did have slight increase in BNP but we have no baseline for this, saturating well, does not appear to be in distress, monitor closely for need for Lasix or further workup #Recent concern for bowel perf treated conservatively -Treated at [facility] -On cipro/flagyl, will continue this # Disseminated histoplasmosis -Continue itraconazole twice daily -Patient to follow-up with a Dr. Hart in 3 months # Recent COVID-19 -4 more days of dexamethasone -Tested positive here at the end of February #Hx and mod pericardial effusion -Seen at [facility] and pt advised to f/u outpt -Will need to f/u after d/c for further monitoring and management #Hx PE -Resumed on coumadin -Daily PT/INR -INR 3.2 in ED -Awaiting med rec with accurate Coumadin dosing # Chronic anemia -Hemoglobin 9.0 on 03/19, today 8.9 -Continue to monitor #RA -Previously on humira, methotrexate, leucovorin -Will hold at this time given active treatment for her disseminated histoplasmosis and bowel perforation #GERD -Continue PPI #DVT ppx: On Coumadin Laine Veras MD Charges/Coding Visit Charges Inpatient E&M: 27854 Init Hosp L2 03/26/23 1604 <Electronically signed by Laine Veras MD> Cosigner Signature (if applicable): CC: Dr. Claudine Durán MD; Dr. Laine Veras MD~ Signed [facility] Work Phone: History and physical note Author Laine Veras [facility] March 31, 2023 8:59pm Note Date/Time March 31, 2023 8:20pm [facility] Medical Records Department [address] [place] [address] H&P Exam - Hospitalist 03/31/232011 MR#: [id number] Acct: [id number] Name: HAYDEE BUSTAMANTE Rep #:[id number] : 1945 77 From: Laine Veras MD PCP: Dr. Claudine Durán MD Status:AD M IN Location: [facility] [id number]- [id number] HPI - General General Date of Admission: 03/31/23 Date of Service: 03/31/23 Chief Complaint: BLE edema and weeping HPI Narrative HAYDEE BUSTAMANTE, is a 77-year-old female history of COPD, Severe . GERD. DVT and PEon Coumadin, histoplasmosis of the lung, RA who presented to [facility] ED 03/31/2023 with bilateral lower extremity edema. She was seen here 03/28/2023 with lower extremity edema. She was initially seen here 03/26/2023 for shortness of breath and inability to care for herself at home after a recent hospital stay at [facility] from which she was discharged on Cipro and Flagyl as well as itraconazole and she was treated also with remdesivir and dexamethasone for COVID-19. Patient was evaluated in the ED and due to her failure to thrive and inability to care for self she was admitted. Patient did well and was feeling better the following day and was discharged home 03/27. She Re-presented to the ED 03/28 with bilateral lower extremity edema, she was not hypoxic and her labs were essentially unchanged from prior so she was placed on 20 mg of Lasix daily and strongly advised to follow-up with her primary care physician. She started the Lasix yesterday but re-presented today for lower extremity edema. Reportedly patient was at home and was nervous about getting up from her commode so sat there for a long time, when she did finally get up and was ambulating across the room her cane slipped and she fell on her bottom, she scooted to where her friend could see her and waited for her friend to come because she did not think she could get up off the floor. Patient brought to ED. In the ED with blood cell count slightly higher than previous at 19.4 and potassium slightly low at 3.2 but lab workup fairly unremarkable otherwise and patient vitally stable in ED. She was noted on physical exam to have right lower extremity cellulitis and tib-fib x-ray obtained which was unremarkable, she was given some IV fluids and a dose of clindamycin and hospitalist contactedfor admission due to her difficulty caring for herself, lower extremity edema, and lower extremity cellulitis. Patient evaluated at bedside with friend present. Patient reports that since she was most recently in the ED she has continued to have lower extremity swelling and took 1 dose of Lasix yesterday and 1 today, main complaint is the weeping of her legs because she has had to constantly change her pants, did report a little bit of confusion 2 days ago buthas not had that since, denies fevers or chills, reports some chronic shortness of breath without change, denies changes in bowel or bladder, patient only complained of the bilateral lower extremity edema but when looking at legs and asking about her cellulitis she has difficulty with timeline, but thinks it has been slowly progressive over the past couple of days, has some pain in the rightankle as well but she is not sure if she hurt it when she fell or not. Also has some petechiae of the bilateral lower extremities that have developed sometime over the past couple of days. Additionally discussed with patient if she still taking Cipro and Flagyl and itraconazole and she didn't remember if she's been taking cipro and flagyl and itraconazole she hasn't been taking because she can't get the liquid form. She is unsure if she's taking her coumadin [facility] Medical History (Updated 03/31/23 @ 20:[address] Laine Veras MD) Colitis COPD (chronic obstructive pulmonary disease) DVT (deep venous thrombosis) Former smoker Histoplasmosis Pulmonary embolism Rheumatoid arthritis Home Medications adalimumab 40 mg/0.4 mL subcutaneous pen kit (Humira(CF) Pen) 40 mg subcut Q14D 03/19/23 [History Last Taken Unknown] albuterol sulfate 90 mcg/actuation aerosol inhaler 2 puff inhalation Q4H PRN shortness of breath or wheezing 03/19/23 [History Last Taken Unknown] budesonide-formoterol HFA 160 mcg-4.5 mcg/actuation aerosol inhaler (Symbicort) 2 puff inhalation Q12H 03/19/23 [History Last Taken Unknown] fluticasone propionate 50 mcg/actuation nasal spray,suspension 1 spray intranasal DAILY allergies 03/19/23 [History Last Taken Unknown] gabapentin 300 mg capsule 300 mg PO Q12H pain 03/19/23 [History Last Taken Unknown] irbesartan 150 mg-hydrochlorothiazide 12.5 mg tablet 1 tab PO DAILY 03/19/23 [History Last Taken Unknown] multivitamin (Daily Multi-Vitamin tablet) 1 tab PO DAILY supplement 03/19/23 [History Last Taken Unknown] naproxen 500 mg tablet 500 mg PO Q12H 03/19/23 [History Last Taken Unknown] pantoprazole 40 mg tablet,delayed release 40 mg PO DAILY 03/19/23 [History Last Taken Unknown] potassium chloride 20 mEq tablet,extended release(part/cryst) (Klor-Con M) 20 meq PO BID 03/19/23 [History Last Taken Unknown] tiotropium bromide 2.5 mcg/actuation mist for inhalation (Spiriva Respimat) 2 puff inhalation Q24H 03/19/23 [History Last Taken Unknown] vitamins A,C,R-ppyl-qtibjz 2,148 mcg-113 mg-45 mg-17.4 mg tablet (PreserVision AREDS) 2 tab PO BID 03/19/23 [History Last Taken Unknown] warfarin 5 mg tablet 5 mg PO .COMPLEX 03/19/23 [History Last Taken Unknown] cholecalciferol (vitamin D3) 25 mcg (1,000 unit) capsule 25 mcg PO DAILY 03/26/23 [History Last Taken Unknown] ciprofloxacin HCl 500 mg tablet 500 mg PO Q12H 03/26/23 [History Last Taken Unknown] dexamethasone 6 mg tablet 6 mg PO DAILY 03/26/23 [History Last Taken Unknown] itraconazole 10 mg/mL oral solution 100 mg PO Q8H unknown 03/26/23 [History Last Taken Unknown] loperamide 2 mg capsule (Anti-Diarrheal (loperamide)) 4 mg PO TID diarrhea 03/26/23 [History Last Taken Unknown] metronidazole 500 mg tablet 500 mg PO TID 03/26/23 [History Last Taken Unknown] vitamin A-vitamin C-vit E-min tablet (Ocutabs tablet) 2 tab PO DAILY 03/26/23 [History Last Taken Unknown] furosemide 20 mg tablet (Lasix) 20 mg PO DAILY 14 days #14 tabs 03/28/23 [Rx Last Taken Unknown] Allergy/AdvReac Type Severity Reaction Status Date / Time Penicillins Allergy Severe Anaphylaxis Verified 03/28/23 16:32 Surgical History History of embolic filter insertion Hx of foot surgery Social History Smoking Status: Former smoker ROS ROS Narrative General: Denies fever/chills HENT: Denies headache, denies stuffy nose, denies sore throat EYES: Denies changes in vision Resp: Denies cough, chronic shortness of breath Cardiac: Denies chest pain GI: Denies abdominal pain, denies changes in bowel, denies nausea/vomiting : Denies changes in urination Extremity: Increased swelling in bilateral lower extremities MSK: Some general weakness Neuro: Denies any numbness/tingling Heme: Denies any bleeding or bruising Skin: Some right lower extremity erythema and some petechiae in both lower extremities Psychiatric: No complaints voiced Vital Signs Vital Signs Vital Signs: 03/31/23 16:48 03/31/23 17:01 Temperature 98.3 F Temperature Source Oral Pulse Rate 86 Respiratory Rate 17 Respiratory Pattern Normal Blood Pressure 105/46 L Blood Pressure Mean 65 Pulse Ox 100 Weight Weight: 60.1 kg Body Mass Index (BMI) 23.4 Physical Exam Narrative General: Alert, no apparent distress HEENT: Atraumatic, normocephalic Eyes: Anicteric, normal conjunctiva, extraocular movements grossly intact Neck: Supple Respiratory: No rhonchi's or wheezes, normal respiratory effort Cardiovascular: Regular rate and rhythm GI: Soft, nontender, nondistended Extremities: 2+ lower extremity edema bilaterally Musculoskeletal: Moving all extremities, some pain with moving right ankle moreso than left Neuro: No overt focal neurological deficits Skin: Petechiae in bilateral lower extremities but R ankle and soto w/ patchy erythema, both lower extremities with weeping and superficial abrasions, no purulence appreciated Psych: Cooperative Results Lab / Micro Data 03/31/23 18:12 03/31/23 18:12 Labs: Laboratory Results - last 24 hr 03/31/23 18:12: WBC 19.4 H, RBC 2.87 L, Hgb 8.3 L, Hct 24.9 L, MCV 86.8, MCH 28.9, MCHC 33.3, RDW Std Deviation 75.1 H, RDW Coeff of Catarino 24.1 H, Plt Count 95L, MPV 10.4, Immature Gran % (Auto) 1.000 H, Neut % (Auto) 90.8 H, Lymph % (Auto) 3.0 L, [place] % (Auto) 5.0, Eos % (Auto) 0.1, Baso % (Auto) 0.1, Absolute Neuts (auto) 17.6 H, Absolute Lymphs (auto) 0.59 L, Nucleated RBC % 0, Differential Comment SCANNED, Platelet Estimate MOD DEC, Anisocytosis 2+, Microcytosis 1+, Macrocytosis 1+, PT 16.0 H, INR 1.3, Sodium 134 L, Potassium 3.2 L, Chloride 99, Carbon Dioxide 29.0, Anion Gap 6, BUN 31 H, Creatinine 0.75,Estim Creat Clear Calc 50.26, Est GFR (MDRD) Af Amer 96, Est GFR (MDRD) Non-Af 80, BUN/Creatinine Ratio 41.2 H, Glucose 108 H, Lactic Acid 1.4, Calcium 7.8 L, Total Creatine Kinase 125, B-Natriuretic Peptide 97.8 Imaging Radiology Impression Tibia/Fibula X-Ray 03/31/23 17:49 IMPRESSION: No acute radiographic abnormalities. Electronically Signed: Michael Galarza MD at 19:30 EST , Chest X-Ray 03/31/23 18:32 IMPRESSION: No change from prior study. Electronically Signed: Michael Galarza MD at 19:29 EST , Assessment & Plan Assessment/Plan (1) Cellulitis: (2) Leg edema: (3) Generalized weakness: (4) History of DVT (deep vein thrombosis): (5) Rheumatoid arthritis: PLAN: Plan #RLE cellulitis -Sounds to have been slowly progressive over past several days, likely due to infection introduced from one of her superficial abrasions -WBC slightly higher than previous at 19.4 but CK and lactic normal, no SHIELA or other endorgan damage -Pt clinically appears stable -Anaphylactic reaction to penicillin, will give Levaquin -No purulence so we will hold off on vancomycin unless patient not improving andcan consider broadening with MRSA coverage -Will gently hydrate with IV fluids -Wound nurse consult -Elevate extremities -Will also perform right lower extremity duplex as patient subtherapeutic on herCoumadin though this does appear to be more cellulitic in nature -Will check ESR and CRP #Fall and difficulty caring for self -Patient reports falling on her bottom, she is unsure if she hurt her right ankle but does have some right ankle pain, able to move ankle that is some tenderness more laterally than medially -She is unsure timeline of how long her ankle has been painful but up until her fall today she had been walking with a cane so may be secondary to fall/injury -Will obtain x-ray -Pain control -PT/OT -Can consider podiatry consult pending results and progress #Increasing bilateral lower extremity edema -Elevate lower extremities -Can consider daniella wraps if tolerated -Echocardiogram -Daily weights, I's and O's -Giving gentle IVF w/ infection -Ultimately will need to resume Lasix once pt improving #Recent concern for bowel perf treated conservatively -Treated at [facility] -s/p cipro and flagyl, no present abd complaints # Disseminated histoplasmosis -Continue itraconazole twice daily -Patient to follow-up with a Dr. Hart in 3 months # Recent COVID-19 -Tested positive here end of February -No resp complaints #Hx COPD -Continue inhalers #Hx and mod pericardial effusion -Seen at [facility] and pt advised to f/u outpt -Will need to f/u after d/c for further monitoring and management #Hx PE -Resumed on coumadin -Daily PT/INR -INR subtherapeutic in ED and pt unsure if she's taking it # Chronic anemia -8.3, similar to previous, appears to be at baseline -Continue to monitor #Thrombocytopenia -As intermittently had somewhat low values -Could be due to underlying infection -CBC in the a.m., continue to trend #Hypokalemia -Possibly secondary to Lasix -Will replace #RA -Previously on humira, methotrexate, leucovorin -Will hold at this time given active treatment for her disseminated histoplasmosis and bowel perforation #GERD -Continue PPI #DVT ppx: On Coumadin Laine Veras MD #DVT ppx: Lovenox subcu while awaiting therapeutic Coumadin Laine Veras MD Time spent in the patient's overall evaluation,decision-making process, review of diagnostic data, adjustment of management, discussion with other providers, nursing nursing and ancillary staff involved in patient's care documentation, 78Minutes Charges/Coding Visit Charges Inpatient E&M: 97947 Init Hosp L3 03/31/232058 <Electronically signed by Laine Veras MD> Cosigner Signature (if applicable): CC: Dr. Claudine Durán MD; Dr. Laine Veras MD~ Signed [facility] Work Phone: Hospital Discharge instructions Additional Instructions Follow-up with your primary care physician next several days. We will start you on the diuretic Lasix 20 mg a day for the next 14 days. This should make you pee a lot and help get rid of the fluid in your legs. I would take it in the morning because you take it before you go to bed at night you will be up all night urinating. Watch your blood pressure because this medication can you affect your blood pressure if your blood pressure is consistently below 110 the higher or systolic number then stop the medication.[facility] Work Phone: Reason for referral (narrative)* Outpatient Procedure (Routine) - Authorized Specialty Diagnoses / Procedures Referred By Divya reis Referred [facility] Diagnoses Aortic stenosis with bicuspid valve Essential hypertension Procedures ECHO ECHO TTHRC R-T 2D W/WOM-MODE COMPL SPEC&COLR D SiddharthWilliam, [address] [place] [address] [address] Referral ID Status Reason Start Date Expiration Date Visits Requested Visits Authorized [id number] Authorized Auto-Generat ed Referral 08/12/2021 08/12/2022 1 1 * Outpatient Procedure (Routine) - Closed Specialty Diagnoses / Procedures Referred By Contac t Referred To [facility] Diagnoses Aortic stenosis with bicuspid valve Essential hypertension Procedures ECG COMPLETE ECG ROUTINE ECG W/LEAST 12 LDS W/I&R Siddharth William Aguilar, [address] [place] [address] [place] [id number] Referral ID Status Reason Start Date Expiration Date V isits Requested Visits Authorized [id number] Closed Auto-Generate d Referral 08/12/2021 08/12/2022 [address] [facility] for referral (narrative)* Diagnostic Procedure Only (Routine) - Closed Specialty Diagnoses / Procedures Referred By Contac t Referred To Contact XR IMAGING Diagnoses Ulcer of toe of left foot, limited to breakdown of skin (HCC) Hammer toe of left foot Procedures XR FOOT GENERAL 3V AP/LAT/OBL LEFT RADEX FOOT COMPLETE MINIMUM 3 VIEWS hCacho Louise [address] [place] [address] Xr Imaging Referral ID Status Reason Start Date Expiration Date V isits Requested Visits Authorized [id number] Closed Auto-Generate d Referral 10/18/2021 11/17/2022 [address] [facility] for referral (narrative)* Diagnostic Procedure Only (Routine) - Closed Specialty Diagnoses / Procedures Referred By Contac t Referred To Contact XR IMAGING Diagnoses Ulcer of toe of left foot, limited to breakdown of skin (HCC) Hammer toe of left foot Procedures XR FOOT GENERAL 3V AP/LAT/OBL LEFT RADEX FOOT COMPLETE MINIMUM 3 VIEWS Chacho Louise [address] [place] [address] Xr Imaging Referral ID Status Reason Start Date Expiration Date V isits Requested Visits Authorized [id number] Closed Auto-Generate d Referral 10/18/2021 11/17/2022 [address] [facility] for referral (narrative)* Outpatient Procedure (Routine) - Authorized Specialty Diagnoses / Procedures Referred By Divya reis Referred To [facility] Diagnoses Aortic stenosis with bicuspid valve Procedures ECHO ECHO TTHRC R-T 2D W/WOM-MODE COMPL SPEC&COLR Rachelle Wilcox APRN.FINANCIAL ANALYSIS ADVISOR [address] [address] [facility] [place] [address] [place] [address] Referral ID Status Reason Start Date Expiration Date Visits Requested Visits Authorized [id number] Authorized Auto-Generat ed Referral 08/29/2022 08/29/2023 [address] [facility] for referral (narrative)* Diagnostic Procedure Only (Routine) - Authorized Specialty Diagnoses / Procedures Referred By Divya t Referred To Contact [facility] Diagnoses Encounter for screening mammogram for breast cancer Procedures SABINO SCREENING W ALIZE SCREENING DIGITAL BREAST TOMOSYNTHESIS BI SCREENING MAMMOGRAPHY BI 2-VIEW BREAST INC Jimbo Egan, INDUSTRIAL CHEMISTRY TEACHER [address] [place] [address] [facility] [address] [place] [address] Referral ID Status Reason Start Date Expiration Date Visits Requested Visits Authorized [id number] Authorized Auto-Generat ed Referral 10/27/2022 11/26/2023 1 1 * Diagnostic Procedure Only (Routine) - Pending Review Specialty Diagnoses / Procedures Referred By Francoisac t Referred To Contact [facility] Diagnoses Encounter for screening mammogram for breast cancer Procedures SABINO SCREENING SCREENING MAMMOGRAPHY BI 2-VIEW BREAST INC CAD Jv Jimbo, CONNIE.INDUSTRIAL CHEMISTRY TEACHER [address] [place] [address] [facility] [address] [place] [address] Referral ID Status Reason Start Date Expiration Date Visits Requested Visits Authorized [id number] Pending Review Auto-Generat ed Referral 10/27/2022 11/26/2023 [address] [facility] for referral (narrative)* Diagnostic Procedure Only (Routine) - Closed Specialty Diagnoses / Procedures Referred By Divya t Referred To Contact [facility] Diagnoses Encounter for screening mammogram for breast cancer Procedures SABINO SCREENING W ALIZE SCREENING DIGITAL BREAST TOMOSYNTHESIS BI SCREENING MAMMOGRAPHY BI 2-VIEW BREAST INC CAD Jimbo Swanson, CONNIE.INDUSTRIAL CHEMISTRY TEACHER [address] [place] [address] [facility] [address] [place] [address] Referral ID Status Reason Start Date Expiration Date V isits Requested Visits Authorized [id number] Closed Auto-Generate d Referral 10/27/2022 11/26/2023 [address] [facility] for referral (narrative)* Outpatient Procedure (Urgent) - Authorized Specialty Diagnoses / Procedures Referred By Francoisac t Referred To [facility] Diagnoses Acute pain of right knee Pain and swelling of right lower leg Procedures US LEG VEIN DVT UNL VAS LAB DUP-SCAN XTR VEINS UNILATERAL/LIMITED STUDY Jimbo Swanson APRN.CNS [address] [place] [address] [facility] [place] [address] [place] [address] Referral ID Status Reason Start Date Expiration Date Visits Requested Visits Authorized [id number] Authorized Auto-Generat ed Referral 07/10/2023 07/09/2024 [address] [facility] for referral (narrative)* Diagnostic Procedure Only (Routine) - Pending Review Specialty Diagnoses / Procedures Referred By Contac t Referred To Contact XR IMAGING Diagnoses Right knee pain, unspecified chronicity Procedures XR LEG FRONTAL HIP TO ANKLE MECHANICAL AXIS BONE LENGTH STUDIES London Short PA-C [address] [place] [address] [place] [address] Referral ID Status Reason Start Date Expiration Date Visits Requested Visits Authorized [id number] Pending Review Auto-Generat ed Referral 07/18/2023 08/15/2024 1 1 * Diagnostic Procedure Only (Routine) - Pending Review Specialty Diagnoses / Procedures Referred By Contac t Referred To Contact XR IMAGING Diagnoses Right knee pain, unspecified chronicity Procedures XR KNEE GENERAL 4V AP BOTH/PA BOTH/LAT/MERC RIGHT RADIOLOGIC EXAM KNEE COMPLETE 4/MORE VIEWS London Short PA-C [address] [place] [address] [place] [address] Referral ID Status Reason Start Date Expiration Date Visits Requested Visits Authorized [id number] Pending Review Auto-Generat ed Referral 07/18/2023 08/15/2024 [address] [facility] for referral (narrative)* Outpatient Procedure (Routine) - Pending Review Specialty Diagnoses / Procedures Referred By Contac t Referred To [facility] Diagnoses Nonrheumatic aortic valve stenosis Mitral valve stenosis, non-rheumatic Essential hypertension Pericardial effusion (noninflammatory) Procedures ECHO LIMITED ECHO TRANSTHORAC R-T 2D W/WO M-MODE REC William Miller DO [address] [place] [address] [address] Referral ID Status Reason Start Date Expiration Date Visits Requested Visits Authorized [id number] Pending Review Auto-Generat ed Referral 08/27/2023 08/26/2024 [address] [facility] for referral (narrative)* Outpatient Procedure (Routine) - Authorized Specialty Diagnoses / Procedures Referred By Contac t Referred To Contact [facility] Diagnoses Pericardial effusion Procedures ECHO LIMITED ECHO TRANSTHORAC R-T 2D W/WO M-MODE REC COMP Bibi Alegria SUPERVISOR IRRIGATION.FINANCIAL ANALYSIS ADVISOR [address] [place] [address] [address] Referral ID Status Reason Start Date Expiration Date Visits Requested Visits Authorized [id number] Authorized Auto-Generat ed Referral 10/17/2024 [address] [facility] for referral (narrative)* Outpatient Procedure (Routine) - New Request Specialty Diagnoses / Procedures Referred By Contac t Referred To Contact [facility] Diagnoses Nonrheumatic aortic valve stenosis Aortic valve disorder Procedures ECG COMPLETE ECG ROUTINE ECG W/LEAST 12 LDS W/I&R Monica Aguila APRN.SANTY [address] [place] [address] [address] Referral ID Status Reason Start Date Expiration Date Visits Requested Visits Authorized [id number] New Request Auto-Generat ed Referral 01/07/2025 1 1 * Outpatient Procedure (Routine) - New Request Specialty Diagnoses / Procedures Referred By Contac t Referred To Contact [facility] Diagnoses Nonrheumatic aortic valve stenosis Aortic valve disorder Procedures ECHO ECHO TTHRC R-T 2D W/WOM-MODE COMPL SPEC&COLR D Monica Aguila APRN.FINANCIAL ANALYSIS ADVISOR [address] [id number] [facility] [place] [address] [place] [address] Referral ID Status Reason Start Date Expiration Date Visits Requested Visits Authorized [id number] New Request Auto-Generat ed Referral 4 01/07/2025 1 1 * Diagnostic Procedure Only (Routine) - New Request Specialty Diagnoses / Procedures Referred By Divya reis Referred To Contact MOLECULAR & FUNCTIONAL IMAGING Diagnoses Nonrheumatic aortic valve stenosis Procedures NM SPECT/CT CARDIAC AMYLOID RP LOCLZJ MARY SPECT W/CT 1 AREA 1 DAY IMAGING Monica Aguila APRN.FINANCIAL ANALYSIS ADVISOR [address] [place] [address] Molecular & Functional Imaging [address] [place] [address] Referral ID Status Reason Start Date Expiration Date Visits Requested Visits Authorized [id number] New Request Auto-Generat ed Referral 4 02/06/2025 1 1 * MRI/CT (Routine) - New Request Specialty Diagnoses / Procedures Referred By Divya reis Referred To Contact CT IMAGING Diagnoses Nonrheumatic aortic valve stenosis Encounter for preprocedural cardiovascular examination Procedures CTA CHEST/ABD/PEL (GATED) W IVCON CT ANGIOGRAPHY CHEST W/CONTRAST/NONCONTRAST CT ANGIO ABD&PLVIS CNTRST MTRL W/WO CNTRST Monica Zavala APRN.FINANCIAL ANALYSIS ADVISOR [address] [place] [address] Ct Imaging [id number] Referral ID Status Reason Start Date Expiration Date Visits Requested Visits Authorized [id number] New Request Auto-Generat ed Referral 4 02/06/2025 1 1 * Outpatient Procedure (Routine) - New Request Specialty Diagnoses / Procedures Referred By Divya reis Ref[facility] Diagnoses Nonrheumatic aortic valve stenosis Procedures LUNG DIFFUSION CAPACITY (DLCO) DIFFUSING CAPACITY Monica Aguila APRN.FINANCIAL ANALYSIS ADVISOR [address] [place] [address] [place] [address] Referral ID Status Reason Start Date Expiration Date Visits Requested Visits Authorized [id number] New Request Auto-Generat ed Referral 4 02/06/2025 1 1 * Outpatient Procedure (Routine) - New Request Specialty Diagnoses / Procedures Referred By Divya reis Referred To Contact [facility] Diagnoses Nonrheumatic aortic valve stenosis Procedures SPIROMETRY BASELINE ONLY SPMTRY W/VC EXPIRATORY [place] W/WO MXML VOL VNTJ Monica Aguila APRN.FINANCIAL ANALYSIS ADVISOR [address] [id number] [place] [address] Referral ID Status Reason Start Date Expiration Date Visits Requested Visits Authorized [id number] New Request Auto-Generat ed Referral 4 02/06/2025 [address] [facility] for referral (narrative)* Diagnostic Procedure Only (Routine) - Closed Specialty Diagnoses / Procedures Referred By Divya reis Referred To Contact MOLECULAR & FUNCTIONAL IMAGING Diagnoses Nonrheumatic aortic valve stenosis Procedures NM SPECT/CT CARDIAC AMYLOID RP LOCLZJ MARY SPECT W/CT 1 AREA 1 DAY IMAGING Monica Aguila APRN.FINANCIAL ANALYSIS ADVISOR [address] [place] [address] Molecular & Functional Imaging [address] [id number] Referral ID Status Reason Start Date Expiration Date V isits Requested Visits Authorized [id number] Closed Auto-Generate d Referral 01/08/2024 02/06/2025 [address] [facility] for referral (narrative)* Transition of Care (Routine) - Authorized Specialty Diagnoses / Procedures Referred By Contac t Referred To Contact [facility] Procedures CARDIOVASCULAR MEDICINE OP FOLLOW UP APPT ORDER Monica Aguila APRN.CNP [address] [place] [address] Phone: tel: fax: [facility] [id number] [place] [address] Referral ID Status Reason Start Date Expiration Date Visits Requested Visits Authorized [id number] Authorized PCP Requested Referral 04/30/2024 04/30/2025 [address] [facility] for referral (narrative)* Transition of Care (Routine) - Authorized Specialty Diagnoses / Procedures Referred By Contac t Referred To Contact [facility] Procedures CARDIOVASCULAR MEDICINE OP [place]LLOW [place] [address] [place] [address] Phone: tel: [facility] [address] [address] Referral ID Status Reason Start Date Expiration Date Visits Requested Visits Authorized [id number] Authorized PCP Requested Referral 05/05/2024 05/05/2025 [address] [facility] for referral (narrative)No reason for referral information availableWMiami [facility] Work Phone: [facility] ([facility])* Transition of Care (Routine) - Authorized Specialty Diagnoses / Procedures Referred By Contac t Referred To Contact [facility] Procedures CARDIOVASCULAR MEDICINE OP FOLLOW UP APPT ORDER Brissa Chester APRN.FINANCIAL ANALYSIS ADVISOR [address] [place] [address] Phone: tel: fax: [facility] [place] [address] [place] [address] Referral ID Status Reason Start Date Expiration Date Visits Requested Visits Authorized [id number] Authorized PCP Requested Referral 07/22/2024 07/22/2025 [address] [facility] for visit Narrative* Diagnostic Procedure Only (Routine) - Closed Specialty Diagnoses / Procedures Referred By Contac t Referred To Contact XR IMAGING Diagnoses Ulcer of toe of left foot, limited to breakdown of skin (HCC) Hammer toe of left foot Procedures XR FOOT GENERAL 3V AP/LAT/OBL LEFT RADEX FOOT COMPLETE MINIMUM 3 VIEWS Chacho Louise [address] [place] [address] Xr Imaging Referral ID Status Reason Start Date Expiration Date V isits Requested Visits Authorized [id number] Closed Auto-Generate d Referral 10/18/2021 11/17/2022 [address] [facility] for visit Narrative* Diagnostic Procedure Only (Routine) - Closed Specialty Diagnoses / Procedures Referred By Contac t Referred To Contact BR IMAGING Diagnoses Encounter for screening mammogram for breast cancer Procedures SABINO SCREENING W ALIZE SCREENING DIGITAL BREAST TOMOSYNTHESIS BI SCREENING MAMMOGRAPHY BI 2-VIEW BREAST INC Jimbo Egan, SUPERVISOR IRRIGATION.INDUSTRIAL CHEMISTRY TEACHER [address] [place] [address] Br Imaging [address] [place] [address] Referral ID Status Reason Start Date Expiration Date V isits Requested Visits Authorized [id number] Closed Auto-Generate d Referral 10/27/2022 11/26/2023 [address] [facility] for visit Narrative* Diagnostic Procedure Only (Urgent) - Closed Specialty Diagnoses / Procedures Referred By Contac t Referred To Contact XR IMAGING Diagnoses Hip pain, acute, left Procedures XR HIP GENERAL 3V PELV/AP/LAT LEFT RADEX HIP UNILATERAL WITH PELVIS 2-3 VIEWS Ernie Belcher, SUPERVISOR IRRIGATION.FINANCIAL ANALYSIS ADVISOR [address] [place] [address] [place] [address] Referral ID Status Reason Start Date Expiration Date V isits Requested Visits Authorized [id number] Closed Auto-Generate d Referral 12/31/2021 01/30/2023 [facility] Procedure Only (Routine) - Closed Specialty Diagnoses / Procedures Referred By Contac t Referred To Contact MOLECULAR & FUNCTIONAL IMAGING Diagnoses Nonrheumatic aortic valve stenosis Procedures NM SPECT/CT CARDIAC AMYLOID RP LOCLZJ MARY SPECT W/CT 1 AREA 1 DAY IMAGING Monica Aguila, SUPERVISOR IRRIGATION.FINANCIAL ANALYSIS ADVISOR [address] [phone] Molecular & Functional Imaging [address] [place] [address] Referral ID Status Reason Start Date Expiration Date V isits Requested Visits Authorized [id number] Closed Auto-Generate d Referral 01/08/2024 02/06/2025 1 1 [facility] Summary Purpose Family History No Family History Records FoundNo Family History Records FoundNo Family History Records FoundNo Family History Records FoundNo Family History Records FoundNo Family History Records Found Advance Directives No Advanced Directives Records FoundDocuments on File Type Date Recorded 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 Advance Directive(s) 02/25/2018 1:19 PM Date Activated Date Inactivated Comments 03/22/2023 3:19 PM 03/25/2023 9:30 PM Question Answer Comments Full Code Order Discussed With: PatientSurrogate Decision Maker Surrogate Decision Maker Name: Milena Araiza and José Miguel adames Dustinmarily (Friends) Date Activated Date Inactivated Comments 03/02/2018 6:22 PM 03/03/2018 4:33 PM Question Answer Comments Full Code Order Discussed With: Patient Latest Code Status on File Code Status Date Activated Date Inactivated Comments Full Code 03/02/2018 6:22 PM 03/03/2018 4:33 PM Full Code Order Discussed With: Patient Documents on File Type Date Recorded 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 Advance Directive(s) 03/24/2019 12:16 PM Advance Directive(s) 03/02/2018 11:28 AM Advance Directive(s) 02/25/2018 1:11 PM Advance Directive(s) 02/25/2018 1:19 PM Advance Directive(s) 01/25/2018 9:15 AM Advance Directive(s) 07/30/2017 2:22 PM Documents on File Type Date Recorded 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 Advance Directive(s) 03/24/2019 12:16 PM Advance Directive(s) 03/02/2018 11:28 AM Advance Directive(s) 02/25/2018 1:11 PM Advance Directive(s) 02/25/2018 1:19 PM Advance Directive(s) 01/25/2018 9:15 AM Advance Directive(s) 07/30/2017 2:22 PM Latest Code Status on File Code Status Date Activated Date Inactivated Comments Full Code 03/02/2018 6:22 PM 03/03/2018 4:33 PM Documents on File Type Date Recorded 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 Advance Directive(s) 02/25/2018 1:19 PM [...] Comments Full Code Order Discussed With: Patient Advance Directive Response Recorded Date/ Time Living Will No March 19 10:06am Power of Needlemaker No March 19, 2023 10:06am Latest Code Status on File Code Status Date Activated Date Inactivated Comments Full Code 03/22/2023 3:19 PM Question Answer Comments Full Code Order Discussed With: Patient Surrogate Decision Maker Surrogate Decision Maker Name: Milena Davis linda and Padmini Chang (Friends) Code Status History [...] Decision Maker Surrogate Decision Maker Name: Milena Davis linda and Padmini Chang (Friends) Advance Directive Response Recorded Date/ Time Living Will No March 28 4:31pm Power of Needlemaker No March 28, 2023 4:31pm Name of Medical Power of Needlemaker diallo araiza March 26, 2023 5:06pm Advance Directive Response Recorded Date/ Time Living Will No March 31 5:01pm Power of Needlemaker No March 31, 2023 5:01pm Name of Medical Power of Needlemaker diallo araiza March 26, 2023 5:06pm Advance Directive Response Recorded Date/ Time Name of Medical Power of Needlemaker Milena Araiza and Padmini Chang March 31, 2023 9:38pm Living Will Yes April 04 4:12pm Power of Needlemaker Yes April 04, 2023 4:12pm Name of Medical Power of Needlemaker diallo araiza March 26, 2023 5:06pm Advance Directive Response Recorded Date/ Time Name of Medical Power of Needlemaker Milena Araiza and Padmini Chang March 31, 2023 9:38pm Name of Medical Power of Needlemaker diallo araiza March 26, 2023 5:06pm Name of Medical Power of Needlemaker Suzie Akin (Milena), friend April 09, 2023 2:27pm Living Will Yes April 09 024 2:27pm Power of Needlemaker Yes April 09, 2023 2:27pm Advance Directive Response Recorded Date/ Time Name of Medical Power of Needlemaker Milena Elainediandra and Padmini Chang March 31, 2023 10:38pm Name of Medical Power of Needlemaker diallo araiza March 26, 2023 6:06pm Name of Medical Power of Needlemaker Suzie Elainediandra (Milena), friend April 09, 2023 3:27pm Living Will Yes April 09 024 3:27pm Power of Needlemaker Yes April 09, 2023 3:27pm Date Activated Date Inactivated Comments 03/22/2023 3:19 PM 03/25/2023 9:30 PM Question Answer Comments Full Code Order Discussed With: PatientSurrogate Decision Maker Surrogate Decision Maker Name: Milena Araiza and José Miguel Chang (Friends) Date Activated Date Inactivated Comments 03/02/2018 6:22 PM 03/03/2018 4:33 PM Question Answer Comments Full Code Order Discussed With: Patient Advance Directive Response Recorded Date/ Time Advance Directives on File Yes May 28, 2024 8:37am Living Will Yes May 28, 2024 8:37am Do you have a Healthcare Power of Needlemaker? Yes May 28, 2024 8:37am Reason for Referral Specialty Diagnoses / Procedures Referred By Contac t Referred To Contact CT IMAGING Diagnoses Lung nodules Procedures CT CHEST WO IVCON DIAGNOSTIC COMPUTED TOMOGRAPHY THORAX W/O Florence Duncan MD [address] [place] [address] Ct Imaging Referral ID Status Reason Start Date Expiration Date Visits Requested Visits Authorized [id number] Authorized Auto-Generat ed Referral 12/29/2022 1 1 Specialty Diagnoses / Procedures Referred By Contac t Referred To Contact CT IMAGING Diagnoses Lung nodules Bronchiectasis without complication (HCC) Procedures CT CHEST WO IVCON DIAGNOSTIC COMPUTED TOMOGRAPHY THORAX W/O Florence Duncan MD [address] [place] [address] Ct Imaging Referral ID Status Reason Start Date Expiration Date Visits Requested Visits Authorized [id number] Authorized Auto-Generat ed Referral 01/23/2023 08/23/2023 1 1 Specialty Diagnoses / Procedures Referred By Contac t Referred To Contact CT IMAGING Diagnoses Lung nodules Procedures CT CHEST WO IVCON DIAGNOSTIC COMPUTED TOMOGRAPHY THORAX W/O Florence Duncan MD [address] [place] [address] [place] [address] Referral ID Status Reason Start Date Expiration Date V isits Requested Visits Authorized [id number] Closed Auto-Generate d Referral 11/29/2021 12/29/2022 1 1 Specialty Diagnoses / Procedures Referred By Contac t Referred To Contact Claudine Durán MD [address] [place] [address] Referral ID Status Reason Start Date Expiration Date Visits Re quested Visits Authorized [id number] Closed 1 1 Specialty Diagnoses / Procedures Referred By Contac t Referred To Contact Orthopedics Diagnoses 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 rheumatoid factor (HCC) Pain and swelling of right knee Procedures CONSULT TO ORTHOPAEDICS OFFICE/OUTPATIENT [facility] 60 MINUTES [place] Jimbo, SUPERVISOR IRRIGATION.INDUSTRIAL CHEMISTRY TEACHER [address] [place] [address] Referral ID Status Reason Start Date Expiration Date Visits Requested Visits Authorized [id number] Authorized PCP Requested Referral 07/13/2023 07/12/2024 1 1 Specialty Diagnoses / Procedures Referred By Contac t Referred To Contact CT IMAGING Diagnoses Disseminated histoplasmosis Procedures CT CHEST WO IVCON DIAGNOSTIC COMPUTED TOMOGRAPHY THORAX W/O CNTRST Geno Hart MD [address] [place] [address] [place] [address] Referral ID Status Reason Start Date Expiration Date V isits Requested Visits Authorized [id number] Closed Auto-Generate d Referral 08/30/2023 02/19/2024 1 1 Specialty Diagnoses / Procedures Referred By Contac t Referred To Contact Cardiology Diagnoses Aortic valve stenosis, etiology of cardiac valve disease unspecified Mitral valve stenosis, unspecified etiology Pericardial effusion Procedures CONSULT TO CARDIOLOGY OFFICE/OUTPATIENT [facility] 60 MINUTES Little CedarJimbo, SUPERVISOR IRRIGATION.INDUSTRIAL CHEMISTRY TEACHER [facility] [place] [address] Referral ID Status Reason Start Date Expiration Date Visits Requested Visits Authorized [id number] Authorized PCP Requested Referral 10/11/2023 10/10/2024 1 1 Specialty Diagnoses / Procedures Referred By Contac t Referred To Contact [facility] Diagnoses Nonrheumatic aortic valve stenosis Nonrheumatic mitral valve stenosis Pericardial effusion Rheumatoid arthritis with positive rheumatoid factor, involving unspecified site (HCC) Histoplasmosis Procedures CARDIOVASCULAR MEDICINE OP FOLLOW UP APPT ORDER Ines Drew MD [address] [place] [address] [facility] [address] [place] [address] Referral ID Status Reason Start Date Expiration Date Visits Requested Visits Authorized [id number] Ref Not Required PCP Requested Referral 07/07/2024 01/07/2025 1 1 Specialty Diagnoses / Procedures Referred By Contac t Referred To Contact [facility] Procedures CARDIOVASCULAR MEDICINE OP [place]LLOW [place] [address] [place] [address] [address] Referral ID Status Reason Start Date Expiration Date Visits Requested Visits Authorized [id number] Authorized PCP Requested Referral 03/21/2024 03/21/2025 1 1 Specialty Diagnoses / Procedures Referred By Contac t Referred To Contact [facility] Procedures CARDIOVASCULAR MEDICINE OP FOLLOW UP APPT ORDER Monica Aguila APRN.CNP [address] [place] [address] [address] Referral ID Status Reason Start Date Expiration Date Visits Requested Visits Authorized [id number] Authorized PCP Requested Referral 03/25/2024 03/25/2025 1 1 Medications Administered Section Administered Medications [...] Date High Risk Chronic Disease Home Monitoring [facility] 07/05/2022 Problem Noted Date Diagnosed Date High Risk Chronic Disease Home Monitoring [facility] 07/05/2022 Problem Noted Date Diagnosed Date High Risk Chronic Disease Home Monitoring [facility] 07/05/2022 Problem Noted Date Diagnosed Date High Risk Chronic Disease Home Monitoring [facility] 07/05/2022 Problem Noted Date Diagnosed Date High Risk Chronic Disease Home Monitoring [facility] 07/05/2022 Infection Onset Date Last Indicated Resolved Time COVID-19 Rule-Out 03/20/2023 03/20/2023 03/20/2023 1:58 PM EST Respiratory Rule-Out 03/20/2023 03/20/2023 024 1:58 PM EST Problem Noted Date Diagnosed Date High Risk Chronic Disease Home Monitoring [facility] 07/05/2022 Active Problems Noted Date Diagnosed Date High Risk Chronic Disease Home Monitoring [facility] 07/05/2022 Chief Complaint and Reason for Visit Chief Complaint BLOOD IN SPUTUM Chief Complaint BLOOD IN SPUTUM DEBILITY DEBILITY SOB Reason for Visit Confusion COVID-19 Generalized weakness Histoplasmosis Chief Complaint BLOOD IN SPUTUM DEBILITY DEBILITY SOB RIGHT LEFT CELLULITIS, FAILURE TO THRIVE Reason for Visit Confusion COVID-19 Generalized weakness Histoplasmosis Adult failure to thrive Cellulitis Generalized weakness History of DVT (deep vein thrombosis) Leg edema Rheumatoid arthritis Weakness Chief Complaint BLOOD IN SPUTUM DEBILITY DEBILITY SOB RLE CELLULITIS AND EXTREMITY SWELLING RLE CELLULITIS AND EXTREMITY SWELLING RLE CELLULITIS AND EXTREMITY SWELLING RLE CELLULITIS AND EXTREMITY SWELLING RLE CELLULITIS AND EXTREMITY SWELLING RLE CELLULITIS AND EXTREMITY SWELLING RLE CELLULITIS AND EXTREMITY SWELLING RLE CELLULITIS AND EXTREMITY SWELLING RLE CELLULITIS AND EXTREMITY SWELLING Reason for Visit Adult failure to thr anabel Cellulitis History of DVT (deep vein thrombosis) Leg edema Rheumatoid arthritis Thrombocytopenia Weakness Anemia Chief Complaint BLOOD IN SPUTUM CONFUSION, WEAKNESS, SOB DEBILITY SOB RLE CELLULITIS AND EXTREMITY SWELLING RLE CELLULITIS AND EXTREMITY SWELLING RLE CELLULITIS AND EXTREMITY SWELLING RLE CELLULITIS AND EXTREMITY SWELLING RLE CELLULITIS AND EXTREMITY SWELLING RLE CELLULITIS AND EXTREMITY SWELLING RLE CELLULITIS AND EXTREMITY SWELLING RLE CELLULITIS AND EXTREMITY SWELLING RLE CELLULITIS AND EXTREMITY SWELLING LOWER EXTREMITY CELLULITIS RLE CELLULITIS AND EXTREMITY SWELLING RIGHT LEG SWELLING Reason for Visit Histoplasmosis History of DVT (deep vein thrombosis) Rheumatoid arthritis Thrombocytopenia Weakness Anemia Cellulitis Acute anemia Cellulitis of right lower extremity Debility Duodenitis Edema Failure to thrive Gastric ulcer Histoplasmosis History of blood clots Rheumatoid arthritis Thrombocytopenia COPD (chronic obstructive pulmonary disease) Chief Complaint BLOOD IN SPUTUM CONFUSION, WEAKNESS, SOB DEBILITY SOB RLE CELLULITIS AND EXTREMITY SWELLING RLE CELLULITIS AND EXTREMITY SWELLING RLE CELLULITIS AND EXTREMITY SWELLING RLE CELLULITIS AND EXTREMITY SWELLING RLE CELLULITIS AND EXTREMITY SWELLING RLE CELLULITIS AND EXTREMITY SWELLING RLE CELLULITIS AND EXTREMITY SWELLING RLE CELLULITIS AND EXTREMITY SWELLING RLE CELLULITIS AND EXTREMITY SWELLING LOWER EXTREMITY CELLULITIS RLE CELLULITIS AND EXTREMITY SWELLING RIGHT LEG SWELLING LABWORK Reason for Visit Histoplasmosis History of DVT (deep vein thrombosis) Rheumatoid arthritis Thrombocytopenia Weakness Anemia Cellulitis Debility Duodenitis Gastric ulcer Histoplasmosis History of blood clots Rheumatoid arthritis Thrombocytopenia COPD (chronic obstructive pulmonary disease) Acute anemia Cellulitis of right lower extremity Edema Failure to thrive Chief Complaint BLOOD IN SPUTUM CONFUSION, WEAKNESS, SOB DEBILITY SOB RLE CELLULITIS AND EXTREMITY SWELLING RLE CELLULITIS AND EXTREMITY SWELLING RLE CELLULITIS AND EXTREMITY SWELLING RLE CELLULITIS AND EXTREMITY SWELLING RLE CELLULITIS AND EXTREMITY SWELLING RLE CELLULITIS AND EXTREMITY SWELLING RLE CELLULITIS AND EXTREMITY SWELLING RLE CELLULITIS AND EXTREMITY SWELLING RLE CELLULITIS AND EXTREMITY SWELLING LOWER EXTREMITY CELLULITIS RLE CELLULITIS AND EXTREMITY SWELLING RIGHT LEG SWELLING LABWORK LABWORK Reason for Visit Histoplasmosis History of DVT (deep vein thrombosis) Rheumatoid arthritis Thrombocytopenia Weakness Anemia Cellulitis Debility Duodenitis Gastric ulcer Histoplasmosis History of blood clots Rheumatoid arthritis Thrombocytopenia COPD (chronic obstructive pulmonary disease) Acute anemia Cellulitis of right lower extremity Edema Failure to thrive Chief Complaint BLOOD IN SPUTUM CONFUSION, WEAKNESS, SOB DEBILITY SOB RLE CELLULITIS AND EXTREMITY SWELLING RLE CELLULITIS AND EXTREMITY SWELLING RLE CELLULITIS AND EXTREMITY SWELLING RLE CELLULITIS AND EXTREMITY SWELLING RLE CELLULITIS AND EXTREMITY SWELLING RLE CELLULITIS AND EXTREMITY SWELLING RLE CELLULITIS AND EXTREMITY SWELLING RLE CELLULITIS AND EXTREMITY SWELLING RLE CELLULITIS AND EXTREMITY SWELLING LOWER EXTREMITY CELLULITIS RLE CELLULITIS AND EXTREMITY SWELLING RIGHT LEG SWELLING LABWORK SKILLED NURSING LAB WORK LABWORK Reason for Visit Histoplasmosis History of DVT (deep vein thrombosis) Rheumatoid arthritis Thrombocytopenia Weakness Anemia Cellulitis Debility Duodenitis Gastric ulcer Histoplasmosis History of blood clots Rheumatoid arthritis Thrombocytopenia COPD (chronic obstructive pulmonary disease) Acute anemia Cellulitis of right lower extremity Edema Failure to thrive Chief Complaint BLOOD IN SPUTUM CONFUSION, WEAKNESS, SOB DEBILITY SOB RLE CELLULITIS AND EXTREMITY SWELLING RLE CELLULITIS AND EXTREMITY SWELLING RLE CELLULITIS AND EXTREMITY SWELLING RLE CELLULITIS AND EXTREMITY SWELLING RLE CELLULITIS AND EXTREMITY SWELLING RLE CELLULITIS AND EXTREMITY SWELLING RLE CELLULITIS AND EXTREMITY SWELLING RLE CELLULITIS AND EXTREMITY SWELLING RLE CELLULITIS AND EXTREMITY SWELLING LOWER EXTREMITY CELLULITIS RLE CELLULITIS AND EXTREMITY SWELLING RIGHT LEG SWELLING LABWORK SKILLED NURSING LAB WORK LABWORK LABWORK SKILLED NURSING LAB WORK Reason for Visit Histoplasmosis History of DVT (deep vein thrombosis) Rheumatoid arthritis Thrombocytopenia Weakness Anemia Cellulitis Debility Duodenitis Gastric ulcer Histoplasmosis History of blood clots Rheumatoid arthritis Thrombocytopenia COPD (chronic obstructive pulmonary disease) Acute anemia Cellulitis of right lower extremity Edema Failure to thrive Chief Complaint BLOOD IN SPUTUM CONFUSION, WEAKNESS, SOB DEBILITY SOB RLE CELLULITIS AND EXTREMITY SWELLING RLE CELLULITIS AND EXTREMITY SWELLING RLE CELLULITIS AND EXTREMITY SWELLING RLE CELLULITIS AND EXTREMITY SWELLING RLE CELLULITIS AND EXTREMITY SWELLING RLE CELLULITIS AND EXTREMITY SWELLING RLE CELLULITIS AND EXTREMITY SWELLING RLE CELLULITIS AND EXTREMITY SWELLING RLE CELLULITIS AND EXTREMITY SWELLING LOWER EXTREMITY CELLULITIS RLE CELLULITIS AND EXTREMITY SWELLING RIGHT LEG SWELLING LABWORK SKILLED NURSING LAB WORK LABWORK LABWORK LABWORK SKILLED NURSING LAB WORK Reason for Visit Histoplasmosis History of DVT (deep vein thrombosis) Rheumatoid arthritis Thrombocytopenia Weakness Anemia Cellulitis Debility Duodenitis Gastric ulcer Histoplasmosis History of blood clots Rheumatoid arthritis Thrombocytopenia COPD (chronic obstructive pulmonary disease) Acute anemia Cellulitis of right lower extremity Edema Failure to thrive Chief Complaint BLOOD IN SPUTUM CONFUSION, WEAKNESS, SOB DEBILITY SOB RLE CELLULITIS AND EXTREMITY SWELLING RLE CELLULITIS AND EXTREMITY SWELLING RLE CELLULITIS AND EXTREMITY SWELLING RLE CELLULITIS AND EXTREMITY SWELLING RLE CELLULITIS AND EXTREMITY SWELLING RLE CELLULITIS AND EXTREMITY SWELLING RLE CELLULITIS AND EXTREMITY SWELLING RLE CELLULITIS AND EXTREMITY SWELLING RLE CELLULITIS AND EXTREMITY SWELLING LOWER EXTREMITY CELLULITIS RLE CELLULITIS AND EXTREMITY SWELLING RIGHT LEG SWELLING LABWORK SKILLED NURSING LAB WORK LABWORK LABWORK LABWORK SKILLED NURSING LAB WORK LABWORK Reason for Visit Histoplasmosis History of DVT (deep vein thrombosis) Rheumatoid arthritis Thrombocytopenia Weakness Anemia Cellulitis Debility Duodenitis Gastric ulcer Histoplasmosis History of blood clots Rheumatoid arthritis Thrombocytopenia COPD (chronic obstructive pulmonary disease) Acute anemia Cellulitis of right lower extremity Edema Failure to thrive Chief Complaint BLOOD IN SPUTUM CONFUSION, WEAKNESS, SOB DEBILITY SOB RLE CELLULITIS AND EXTREMITY SWELLING RLE CELLULITIS AND EXTREMITY SWELLING RLE CELLULITIS AND EXTREMITY SWELLING RLE CELLULITIS AND EXTREMITY SWELLING RLE CELLULITIS AND EXTREMITY SWELLING RLE CELLULITIS AND EXTREMITY SWELLING RLE CELLULITIS AND EXTREMITY SWELLING RLE CELLULITIS AND EXTREMITY SWELLING RLE CELLULITIS AND EXTREMITY SWELLING LOWER EXTREMITY CELLULITIS RLE CELLULITIS AND EXTREMITY SWELLING RIGHT LEG SWELLING LABWORK SKILLED 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 LAB WORK LABWORK LABWORK LABWORK SKILLED 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 WORK Reason for Visit Histoplasmosis History of DVT (deep vein thrombosis) Rheumatoid arthritis Thrombocytopenia Weakness Anemia Cellulitis Debility Duodenitis Gastric ulcer Histoplasmosis History of blood clots Rheumatoid arthritis Thrombocytopenia COPD (chronic obstructive pulmonary disease) Acute anemia Cellulitis of right lower extremity Edema Failure to thrive Chief Complaint BLOOD IN SPUTUM CONFUSION, WEAKNESS, SOB DEBILITY SOB RLE CELLULITIS AND EXTREMITY SWELLING RLE CELLULITIS AND EXTREMITY SWELLING RLE CELLULITIS AND EXTREMITY SWELLING RLE CELLULITIS AND EXTREMITY SWELLING RLE CELLULITIS AND EXTREMITY SWELLING RLE CELLULITIS AND EXTREMITY SWELLING RLE CELLULITIS AND EXTREMITY SWELLING RLE CELLULITIS AND EXTREMITY SWELLING RLE CELLULITIS AND EXTREMITY SWELLING LOWER EXTREMITY CELLULITIS RLE CELLULITIS AND EXTREMITY SWELLING RIGHT LEG SWELLING ADMISSION EXAM LABWORK ADMISSION EXAM SKILLED NURSING LAB WORK LABWORK LABWORK LABWORK SKILLED NURSING LAB WORK LABWORK LABWORK LABWORK LABWORK SKILLED 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 LAB WORK LABWORK Reason for Visit Histoplasmosis History of DVT (deep vein thrombosis) Rheumatoid arthritis Thrombocytopenia Weakness Anemia Cellulitis Debility Duodenitis Gastric ulcer Histoplasmosis History of blood clots Rheumatoid arthritis Thrombocytopenia COPD (chronic obstructive pulmonary disease) Acute anemia Cellulitis of right lower extremity Edema Failure to thrive Chief Complaint Admit Date S/P TAVR May 28, 2024 7:55 am s/p TAVR 2024 8:5 7am Chief Complaint Admit Date S/P TAVR May 28, 2024 7:55 am s/p TAVR June 18, 2024 9:1 5am AORTICE VALVE STENOSIS ([facility]) June 20, 2024 10:07am s/p TAVR July 18, 2024 9:15a m Reason for Visit Admit Date Mitral stenosis June 20, 2024 10:07a m Severe aortic stenosis June 20, 2024 10: 07am Hypertension June 20, 2024 10:07a m Chief Complaint Admit Date S/P TAVR May 28, 2024 7:55 am s/p TAVR June 18, 2024 9:1 5am AORTICE VALVE STENOSIS ([place]) June 20, 2024 10:07am s/p TAVR July 18, 2024 9:15a m s/p TAVR August 18, 2024 9:15 am Additional Source Comments INFORMATION SOURCE (unrecogn ized section and content) DATE CREATED AUTHOR 08/15/2017 [facility] DATE CREATED AUTHOR AUTHOR'S ORGANIZ ATION 03/10/2018 [facility] DATE CREATED AUTHOR AUTHOR'S ORGANIZ ATION 09/04/2023 [facility] DATE CREATED AUTHOR AUTHOR'S ORGANIZ ATION 01/07/2024 [facility] DATE CREATED AUTHOR AUTHOR'S ORGANIZ ATION 08/09/2024 [facility] DATE CREATED AUTHOR AUTHOR'S ORGANIZ ATION 08/22/2024 [facility] Source Comments (unrecognize d section and content) In the event this informatio n is protected by the Federal Confidentiality of Alcohol and Drug Abuse Patient Records regulations: The Federal rules restrict any use of the information to criminally investigate or prosecute any alcohol or drug abuse patient.[facility] the event this information is protected by the Federal Confidentiality of Alcohol and Drug Abuse Patient Records regulations: The Federal rules restrict any use of the information to criminally investigate or prosecute any alcohol or drug abuse patient.[facility]In the event this information is protected by the Federal Confidentiality of Alcohol and Drug Abuse Patient Records regulations: The Federal rules restrict any use of the information to criminally investigate or prosecute any alcohol or drug abuse patient.[facility]In the event this information is protected by the Federal Confidentiality of Alcohol and Drug Abuse Patient Records regulations: The Federal rules restrict any use of the information to criminally investigate or prosecute any alcohol or drug abuse patient.[facility]In the event this information is protected by the Federal Confidentiality of Alcohol and Drug Abuse Patient Records regulations: The Federal rules restrict any use of the information to criminally investigate or prosecute any alcohol or drug abuse patient.[facility] HospitalIn the event this information is protected by the Federal Confidentiality of Alcohol and Drug Abuse Patient Records regulations: The Federal rules restrict any use of the information to criminally investigate or prosecute any alcohol or drug abuse patient.[facility]In the event this information is protected by the Federal Confidentiality of Alcohol and Drug Abuse Patient Records regulations: The Federal rules restrict any use of the information to criminally investigate or prosecute any alcohol or drug abuse patient.[facility]In the event this information is protected by the Federal Confidentiality of Alcohol and Drug Abuse Patient Records regulations: The Federal rules restrict any use of the information to criminally investigate or prosecute any alcohol or drug abuse patient.[facility]In the event this information is protected by the Federal Confidentiality of Alcohol and Drug Abuse Patient Records regulations: The Federal rules restrict any use of the information to criminally investigate or prosecute any alcohol or drug abuse patient.[facility] HospitalIn the event this information is protected by the Federal Confidentiality of Alcohol and Drug Abuse Patient Records regulations: The Federal rules restrict any use of the information to criminally investigate or prosecute any alcohol or drug abuse patient.[facility] HospitalIn the event this information is protected by the Federal Confidentiality of Alcohol and Drug Abuse Patient Records regulations: The Federal rules restrict any use of the information to criminally investigate or prosecute any alcohol or drug abuse patient.[facility] HospitalIn the event this information is protected by the Federal Confidentiality of Alcohol and Drug Abuse Patient Records regulations: The Federal rules restrict any use of the information to criminally investigate or prosecute any alcohol or drug abuse patient.[facility] HospitalIn the event this information is protected by the Federal Confidentiality of Alcohol and Drug Abuse Patient Records regulations: The Federal rules restrict any use of the information to criminally investigate or prosecute any alcohol or drug abuse patient.[facility] HospitalIn the event this information is protected by the Federal Confidentiality of Alcohol and Drug Abuse Patient Records regulations: The Federal rules restrict any use of the information to criminally investigate or prosecute any alcohol or drug abuse patient.[facility] HospitalIn the event this information is protected by the Federal Confidentiality of Alcohol and Drug Abuse Patient Records regulations: The Federal rules restrict any use of the information to criminally investigate or prosecute any alcohol or drug abuse patient.[facility] HospitalIn the event this information is protected by the Federal Confidentiality of Alcohol and Drug Abuse Patient Records regulations: The Federal rules restrict any use of the information to criminally investigate or prosecute any alcohol or drug abuse patient.[facility] HospitalIn the event this information is protected by the Federal Confidentiality of Alcohol and Drug Abuse Patient Records regulations: The Federal rules restrict any use of the information to criminally investigate or prosecute any alcohol or drug abuse patient.[facility] HospitalIn the event this information is protected by the Federal Confidentiality of Alcohol and Drug Abuse Patient Records regulations: The Federal rules restrict any use of the information to criminally investigate or prosecute any alcohol or drug abuse patient.[facility] HospitalIn the event this information is protected by the Federal Confidentiality of Alcohol and Drug Abuse Patient Records regulations: The Federal rules restrict any use of the information to criminally investigate or prosecute any alcohol or drug abuse patient.[facility] HospitalIn the event this information is protected by the Federal Confidentiality of Alcohol and Drug Abuse Patient Records regulations: The Federal rules restrict any use of the information to criminally investigate or prosecute any alcohol or drug abuse patient.[facility] HospitalIn the event this information is protected by the Federal Confidentiality of Alcohol and Drug Abuse Patient Records regulations: The Federal rules restrict any use of the information to criminally investigate or prosecute any alcohol or drug abuse patient.[facility] HospitalIn the event this information is protected by the Federal Confidentiality of Alcohol and Drug Abuse Patient Records regulations: The Federal rules restrict any use of the information to criminally investigate or prosecute any alcohol or drug abuse patient.[facility] HospitalIn the event this information is protected by the Federal Confidentiality of Alcohol and Drug Abuse Patient Records regulations: The Federal rules restrict any use of the information to criminally investigate or prosecute any alcohol or drug abuse patient.[facility] HospitalIn the event this information is protected by the Federal Confidentiality of Alcohol and Drug Abuse Patient Records regulations: The Federal rules restrict any use of the information to criminally investigate or prosecute any alcohol or drug abuse patient.[facility] HospitalIn the event this information is protected by the Federal Confidentiality of Alcohol and Drug Abuse Patient Records regulations: The Federal rules restrict any use of the information to criminally investigate or prosecute any alcohol or drug abuse patient.[facility] HospitalIn the event this information is protected by the Federal Confidentiality of Alcohol and Drug Abuse Patient Records regulations: The Federal rules restrict any use of the information to criminally investigate or prosecute any alcohol or drug abuse patient.[facility] HospitalIn the event this information is protected by the Federal Confidentiality of Alcohol and Drug Abuse Patient Records regulations: The Federal rules restrict any use of the information to criminally investigate or prosecute any alcohol or drug abuse patient.[facility] HospitalIn the event this information is protected by the Federal Confidentiality of Alcohol and Drug Abuse Patient Records regulations: The Federal rules restrict any use of the information to criminally investigate or prosecute any alcohol or drug abuse patient.[facility] HospitalIn the event this information is protected [...] or prosecute any alcohol or drug abuse patient.[facility] HospitalIn the event this information is protected by the Federal Confidentiality of Alcohol and Drug Abuse Patient Records regulations: The Federal rules restrict any use of the information to criminally investigate or prosecute any alcohol or drug abuse patient.[facility] HospitalIn the event this information is protected by the Federal Confidentiality of Alcohol and Drug Abuse Patient Records regulations: The Federal rules restrict any use of the information to criminally investigate or prosecute any alcohol or drug abuse patient.[facility] HospitalIn the event this information is protected by the Federal Confidentiality of Alcohol and Drug Abuse Patient Records regulations: The Federal rules restrict any use of the information to criminally investigate or prosecute any alcohol or drug abuse patient.[facility] HospitalIn the event this information is protected by the Federal Confidentiality of Alcohol and Drug Abuse Patient Records regulations: The Federal rules restrict any use of the information to criminally investigate or prosecute any alcohol or drug abuse patient.[facility] HospitalIn the event this information is protected by the Federal Confidentiality of Alcohol and Drug Abuse Patient Records regulations: The Federal rules restrict any use of the information to criminally investigate or prosecute any alcohol or drug abuse patient.[facility] HospitalIn the event this information is protected by the Federal Confidentiality of Alcohol and Drug Abuse Patient Records regulations: The Federal rules restrict any use of the information to criminally investigate or prosecute any alcohol or drug abuse patient.[facility] HospitalIn the event this information is protected by the Federal Confidentiality of Alcohol and Drug Abuse Patient Records regulations: The Federal rules restrict any use of the information to criminally investigate or prosecute any alcohol or drug abuse patient.[facility] HospitalIn the event this information is protected by the Federal Confidentiality of Alcohol and Drug Abuse Patient Records regulations: The Federal rules restrict any use of the information to criminally investigate or prosecute any alcohol or drug abuse patient.[facility] HospitalIn the event this information is protected by the Federal Confidentiality of Alcohol and Drug Abuse Patient Records regulations: The Federal rules restrict any use of the information to criminally investigate or prosecute any alcohol or drug abuse patient.[facility] HospitalIn the event this information is protected by the Federal Confidentiality of Alcohol and Drug Abuse Patient Records regulations: The Federal rules restrict any use of the information to criminally investigate or prosecute any alcohol or drug abuse patient.[facility] HospitalIn the event this information is protected by the Federal Confidentiality of Alcohol and Drug Abuse Patient Records regulations: The Federal rules restrict any use of the information to criminally investigate or prosecute any alcohol or drug abuse patient.[facility] HospitalIn the event this information is protected by the Federal Confidentiality of Alcohol and Drug Abuse Patient Records regulations: The Federal rules restrict any use of the information to criminally investigate or prosecute any alcohol or drug abuse patient.[facility] HospitalIn the event this information is protected by the Federal Confidentiality of Alcohol and Drug Abuse Patient Records regulations: The Federal rules restrict any use of the information to criminally investigate or prosecute any alcohol or drug abuse patient.[facility] HospitalIn the event this information is protected by the Federal Confidentiality of Alcohol and Drug Abuse Patient Records regulations: The Federal rules restrict any use of the information to criminally investigate or prosecute any alcohol or drug abuse patient.[facility] HospitalIn the event this information is protected by the Federal Confidentiality of Alcohol and Drug Abuse Patient Records regulations: The Federal rules restrict any use of the information to criminally investigate or prosecute any alcohol or drug abuse patient.[facility] HospitalIn the event this information is protected by the Federal Confidentiality of Alcohol and Drug Abuse Patient Records regulations: The Federal rules restrict any use of the information to criminally investigate or prosecute any alcohol or drug abuse patient.[facility] HospitalIn the event this information is protected by the Federal Confidentiality of Alcohol and Drug Abuse Patient Records regulations: The Federal rules restrict any use of the information to criminally investigate or prosecute any alcohol or drug abuse patient.[facility] HospitalIn the event this information is protected by the Federal Confidentiality of Alcohol and Drug Abuse Patient Records regulations: The Federal rules restrict any use of the information to criminally investigate or prosecute any alcohol or drug abuse patient.[facility] HospitalIn the event this information is protected by the Federal Confidentiality of Alcohol and Drug Abuse Patient Records regulations: The Federal rules restrict any use of the information to criminally investigate or prosecute any alcohol or drug abuse patient.[facility] HospitalIn the event this information is protected by the Federal Confidentiality of Alcohol and Drug Abuse Patient Records regulations: The Federal rules restrict any use of the information to criminally investigate or prosecute any alcohol or drug abuse patient.[facility] HospitalIn the event this information is protected by the Federal Confidentiality of Alcohol and Drug Abuse Patient Records regulations: The Federal rules restrict any use of the information to criminally investigate or prosecute any alcohol or drug abuse patient.[facility] HospitalIn the event this information is protected by the Federal Confidentiality of Alcohol and Drug Abuse Patient Records regulations: The Federal rules restrict any use of the information to criminally investigate or prosecute any alcohol or drug abuse patient.[facility] HospitalIn the event this information is protected by the Federal Confidentiality of Alcohol and Drug Abuse Patient Records regulations: The Federal rules restrict any use of the information to criminally investigate or prosecute any alcohol or drug abuse patient.[facility] HospitalIn the event this information is protected by the Federal Confidentiality of Alcohol and Drug Abuse Patient Records regulations: The Federal rules restrict any use of the information to criminally investigate or prosecute any alcohol or drug abuse patient.[facility] HospitalIn the event this information is protected by the Federal Confidentiality of Alcohol and Drug Abuse Patient Records regulations: The Federal rules restrict any use of the information to criminally investigate or prosecute any alcohol or drug abuse patient.[facility] HospitalIn the event this information is protected by the Federal Confidentiality of Alcohol and Drug Abuse Patient Records regulations: The Federal rules restrict any use of the information to criminally investigate or prosecute any alcohol or drug abuse patient.[facility] HospitalIn the event this information is protected by the Federal Confidentiality of Alcohol and Drug Abuse Patient Records regulations: The Federal rules restrict any use of the information to criminally investigate or prosecute any alcohol or drug abuse patient.[facility] HospitalIn the event this information is protected by the Federal Confidentiality of Alcohol and Drug Abuse Patient Records regulations: The Federal rules restrict any use of the information to criminally investigate or prosecute any alcohol or drug abuse patient.[facility] HospitalIn the event this information is protected by the Federal Confidentiality of Alcohol and Drug Abuse Patient Records regulations: The Federal rules restrict any use of the information to criminally investigate or prosecute any alcohol or drug abuse patient.[facility] HospitalIn the event this information is protected by the Federal Confidentiality of Alcohol and Drug Abuse Patient Records regulations: The Federal rules restrict any use of the information to criminally investigate or prosecute any alcohol or drug abuse patient.[facility] HospitalIn the event this information is protected by the Federal Confidentiality of Alcohol and Drug Abuse Patient Records regulations: The Federal rules restrict any use of the information to criminally investigate or prosecute any alcohol or drug abuse patient.[facility] HospitalIn the event this information is protected by the Federal Confidentiality of Alcohol and Drug Abuse Patient Records regulations: The Federal rules restrict any use of the information to criminally investigate or prosecute any alcohol or drug abuse patient.[facility] HospitalIn the event this information is protected by the Federal Confidentiality of Alcohol and Drug Abuse Patient Records regulations: The Federal rules restrict any use of the information to criminally investigate or prosecute any alcohol or drug abuse patient.[facility] HospitalIn the event this information is protected by the Federal Confidentiality of Alcohol and Drug Abuse Patient Records regulations: The Federal rules restrict any use of the information to criminally investigate or prosecute any alcohol or drug abuse patient.[facility] HospitalIn the event this information is protected by the Federal Confidentiality of Alcohol and Drug Abuse Patient Records regulations: The Federal rules restrict any use of the information to criminally investigate or prosecute any alcohol or drug abuse patient.[facility] HospitalIn the event this information is protected by the Federal Confidentiality of Alcohol and Drug Abuse Patient Records regulations: The Federal rules restrict any use of the information to criminally investigate or prosecute any alcohol or drug abuse patient.[facility] HospitalIn the event this information is protected by the Federal Confidentiality of Alcohol and Drug Abuse Patient Records regulations: The Federal rules restrict any use of the information to criminally investigate or prosecute any alcohol or drug abuse patient.[facility] HospitalIn the event this information is protected by the Federal Confidentiality of Alcohol and Drug Abuse Patient Records regulations: The Federal rules restrict any use of the information to criminally investigate or prosecute any alcohol or drug abuse patient.[facility] HospitalIn the event this information is protected by the Federal Confidentiality of Alcohol and Drug Abuse Patient Records regulations: The Federal rules restrict any use of the information to criminally investigate or prosecute any alcohol or drug abuse patient.[facility]In the event this information is protected by the Federal Confidentiality of Alcohol and Drug Abuse Patient Records regulations: The Federal rules restrict any use of the information to criminally investigate or prosecute any alcohol or drug abuse patient.[facility] HospitalIn the event this information is protected by the Federal Confidentiality of Alcohol and Drug Abuse Patient Records regulations: The Federal rules restrict any use of the information to criminally investigate or prosecute any alcohol or drug abuse patient.[facility] HospitalIn the event this information is protected by the Federal Confidentiality of Alcohol and Drug Abuse Patient Records regulations: The Federal rules restrict any use of the information to criminally investigate or prosecute any alcohol or drug abuse patient.[facility] HospitalIn the event this information is protected by the Federal Confidentiality of Alcohol and Drug Abuse Patient Records regulations: The Federal rules restrict any use of the information to criminally investigate or prosecute any alcohol or drug abuse patient.[facility] HospitalIn the event this information is protected by the Federal Confidentiality of Alcohol and Drug Abuse Patient Records regulations: The Federal rules restrict any use of the information to criminally investigate or prosecute any alcohol or drug abuse patient.[facility] HospitalIn the event this information is protected by the Federal Confidentiality of Alcohol and Drug Abuse Patient Records regulations: The Federal rules restrict any use of the information to criminally investigate or prosecute any alcohol or drug abuse patient.[facility] HospitalIn the event this information is protected by the Federal Confidentiality of Alcohol and Drug Abuse Patient Records regulations: The Federal rules restrict any use of the information to criminally investigate or prosecute any alcohol or drug abuse patient.[facility] HospitalIn the event this information is protected by the Federal Confidentiality of Alcohol and Drug Abuse Patient Records regulations: The Federal rules restrict any use of the information to criminally investigate or prosecute any alcohol or drug abuse patient.[facility] HospitalIn the event this information is protected by the Federal Confidentiality of Alcohol and Drug Abuse Patient Records regulations: The Federal rules restrict any use of the information to criminally investigate or prosecute any alcohol or drug abuse patient.[facility] HospitalIn the event this information is protected [...] or prosecute any alcohol or drug abuse patient.[facility] HospitalIn the event this information is protected by the Federal Confidentiality of Alcohol and Drug Abuse Patient Records regulations: The Federal rules restrict any use of the information to criminally investigate or prosecute any alcohol or drug abuse patient.[facility] HospitalIn the event this information is protected by the Federal Confidentiality of Alcohol and Drug Abuse Patient Records regulations: The Federal rules restrict any use of the information to criminally investigate or prosecute any alcohol or drug abuse patient.[facility] HospitalIn the event this information is protected by the Federal Confidentiality of Alcohol and Drug Abuse Patient Records regulations: The Federal rules restrict any use of the information to criminally investigate or prosecute any alcohol or drug abuse patient.[facility] HospitalIn the event this information is protected by the Federal Confidentiality of Alcohol and Drug Abuse Patient Records regulations: The Federal rules restrict any use of the information to criminally investigate or prosecute any alcohol or drug abuse patient.[facility] HospitalIn the event this information is protected by the Federal Confidentiality of Alcohol and Drug Abuse Patient Records regulations: The Federal rules restrict any use of the information to criminally investigate or prosecute any alcohol or drug abuse patient.[facility] HospitalIn the event this information is protected by the Federal Confidentiality of Alcohol and Drug Abuse Patient Records regulations: The Federal rules restrict any use of the information to criminally investigate or prosecute any alcohol or drug abuse patient.[facility] HospitalIn the event this information is protected by the Federal Confidentiality of Alcohol and Drug Abuse Patient Records regulations: The Federal rules restrict any use of the information to criminally investigate or prosecute any alcohol or drug abuse patient.[facility] HospitalIn the event this information is protected by the Federal Confidentiality of Alcohol and Drug Abuse Patient Records regulations: The Federal rules restrict any use of the information to criminally investigate or prosecute any alcohol or drug abuse patient.[facility] HospitalIn the event this information is protected by the Federal Confidentiality of Alcohol and Drug Abuse Patient Records regulations: The Federal rules restrict any use of the information to criminally investigate or prosecute any alcohol or drug abuse patient.[facility] HospitalIn the event this information is protected by the Federal Confidentiality of Alcohol and Drug Abuse Patient Records regulations: The Federal rules restrict any use of the information to criminally investigate or prosecute any alcohol or drug abuse patient.[facility] HospitalIn the event this information is protected by the Federal Confidentiality of Alcohol and Drug Abuse Patient Records regulations: The Federal rules restrict any use of the information to criminally investigate or prosecute any alcohol or drug abuse patient.[facility] HospitalIn the event this information is protected by the Federal Confidentiality of Alcohol and Drug Abuse Patient Records regulations: The Federal rules restrict any use of the information to criminally investigate or prosecute any alcohol or drug abuse patient.[facility] HospitalIn the event this information is protected by the Federal Confidentiality of Alcohol and Drug Abuse Patient Records regulations: The Federal rules restrict any use of the information to criminally investigate or prosecute any alcohol or drug abuse patient.[facility] HospitalIn the event this information is protected by the Federal Confidentiality of Alcohol and Drug Abuse Patient Records regulations: The Federal rules restrict any use of the information to criminally investigate or prosecute any alcohol or drug abuse patient.[facility] HospitalIn the event this information is protected by the Federal Confidentiality of Alcohol and Drug Abuse Patient Records regulations: The Federal rules restrict any use of the information to criminally investigate or prosecute any alcohol or drug abuse patient.[facility] HospitalIn the event this information is protected by the Federal Confidentiality of Alcohol and Drug Abuse Patient Records regulations: The Federal rules restrict any use of the information to criminally investigate or prosecute any alcohol or drug abuse patient.[facility] HospitalIn the event this information is protected by the Federal Confidentiality of Alcohol and Drug Abuse Patient Records regulations: The Federal rules restrict any use of the information to criminally investigate or prosecute any alcohol or drug abuse patient.[facility] HospitalIn the event this information is protected by the Federal Confidentiality of Alcohol and Drug Abuse Patient Records regulations: The Federal rules restrict any use of the information to criminally investigate or prosecute any alcohol or drug abuse patient.[facility] HospitalIn the event this information is protected by the Federal Confidentiality of Alcohol and Drug Abuse Patient Records regulations: The Federal rules restrict any use of the information to criminally investigate or prosecute any alcohol or drug abuse patient.[facility] HospitalIn the event this information is protected by the Federal Confidentiality of Alcohol and Drug Abuse Patient Records regulations: The Federal rules restrict any use of the information to criminally investigate or prosecute any alcohol or drug abuse patient.[facility] HospitalIn the event this information is protected by the Federal Confidentiality of Alcohol and Drug Abuse Patient Records regulations: The Federal rules restrict any use of the information to criminally investigate or prosecute any alcohol or drug abuse patient.[facility] HospitalIn the event this information is protected by the Federal Confidentiality of Alcohol and Drug Abuse Patient Records regulations: The Federal rules restrict any use of the information to criminally investigate or prosecute any alcohol or drug abuse patient.[facility] HospitalIn the event this information is protected by the Federal Confidentiality of Alcohol and Drug Abuse Patient Records regulations: The Federal rules restrict any use of the information to criminally investigate or prosecute any alcohol or drug abuse patient.[facility] HospitalIn the event this information is protected by the Federal Confidentiality of Alcohol and Drug Abuse Patient Records regulations: The Federal rules restrict any use of the information to criminally investigate or prosecute any alcohol or drug abuse patient.[facility] HospitalIn the event this information is protected by the Federal Confidentiality of Alcohol and Drug Abuse Patient Records regulations: The Federal rules restrict any use of the information to criminally investigate or prosecute any alcohol or drug abuse patient.[facility] HospitalIn the event this information is protected by the Federal Confidentiality of Alcohol and Drug Abuse Patient Records regulations: The Federal rules restrict any use of the information to criminally investigate or prosecute any alcohol or drug abuse patient.[facility] HospitalIn the event this information is protected by the Federal Confidentiality of Alcohol and Drug Abuse Patient Records regulations: The Federal rules restrict any use of the information to criminally investigate or prosecute any alcohol or drug abuse patient.[facility] HospitalIn the event this information is protected by the Federal Confidentiality of Alcohol and Drug Abuse Patient Records regulations: The Federal rules restrict any use of the information to criminally investigate or prosecute any alcohol or drug abuse patient.[facility] HospitalIn the event this information is protected by the Federal Confidentiality of Alcohol and Drug Abuse Patient Records regulations: The Federal rules restrict any use of the information to criminally investigate or prosecute any alcohol or drug abuse patient.[facility] HospitalIn the event this information is protected by the Federal Confidentiality of Alcohol and Drug Abuse Patient Records regulations: The Federal rules restrict any use of the information to criminally investigate or prosecute any alcohol or drug abuse patient.[facility] HospitalIn the event this information is protected by the Federal Confidentiality of Alcohol and Drug Abuse Patient Records regulations: The Federal rules restrict any use of the information to criminally investigate or prosecute any alcohol or drug abuse patient.[facility] HospitalIn the event this information is protected by the Federal Confidentiality of Alcohol and Drug Abuse Patient Records regulations: The Federal rules restrict any use of the information to criminally investigate or prosecute any alcohol or drug abuse patient.[facility] HospitalIn the event this information is protected by the Federal Confidentiality of Alcohol and Drug Abuse Patient Records regulations: The Federal rules restrict any use of the information to criminally investigate or prosecute any alcohol or drug abuse patient.[facility] HospitalIn the event this information is protected by the Federal Confidentiality of Alcohol and Drug Abuse Patient Records regulations: The Federal rules restrict any use of the information to criminally investigate or prosecute any alcohol or drug abuse patient.[facility] HospitalIn the event this information is protected by the Federal Confidentiality of Alcohol and Drug Abuse Patient Records regulations: The Federal rules restrict any use of the information to criminally investigate or prosecute any alcohol or drug abuse patient.[facility] HospitalIn the event this information is protected by the Federal Confidentiality of Alcohol and Drug Abuse Patient Records regulations: The Federal rules restrict any use of the information to criminally investigate or prosecute any alcohol or drug abuse patient.[facility] HospitalIn the event this information is protected by the Federal Confidentiality of Alcohol and Drug Abuse Patient Records regulations: The Federal rules restrict any use of the information to criminally investigate or prosecute any alcohol or drug abuse patient.[facility] HospitalIn the event this information is protected by the Federal Confidentiality of Alcohol and Drug Abuse Patient Records regulations: The Federal rules restrict any use of the information to criminally investigate or prosecute any alcohol or drug abuse patient.[facility] HospitalIn the event this information is protected by the Federal Confidentiality of Alcohol and Drug Abuse Patient Records regulations: The Federal rules restrict any use of the information to criminally investigate or prosecute any alcohol or drug abuse patient.[facility] HospitalIn the event this information is protected by the Federal Confidentiality of Alcohol and Drug Abuse Patient Records regulations: The Federal rules restrict any use of the information to criminally investigate or prosecute any alcohol or drug abuse patient.[facility] HospitalIn the event this information is protected by the Federal Confidentiality of Alcohol and Drug Abuse Patient Records regulations: The Federal rules restrict any use of the information to criminally investigate or prosecute any alcohol or drug abuse patient.[facility] HospitalIn the event this information is protected by the Federal Confidentiality of Alcohol and Drug Abuse Patient Records regulations: The Federal rules restrict any use of the information to criminally investigate or prosecute any alcohol or drug abuse patient.[facility] HospitalIn the event this information is protected by the Federal Confidentiality of Alcohol and Drug Abuse Patient Records regulations: The Federal rules restrict any use of the information to criminally investigate or prosecute any alcohol or drug abuse patient.[facility] HospitalIn the event this information is protected by the Federal Confidentiality of Alcohol and Drug Abuse Patient Records regulations: The Federal rules restrict any use of the information to criminally investigate or prosecute any alcohol or drug abuse patient.[facility] HospitalIn the event this information is protected by the Federal Confidentiality of Alcohol and Drug Abuse Patient Records regulations: The Federal rules restrict any use of the information to criminally investigate or prosecute any alcohol or drug abuse patient.[facility] HospitalIn the event this information is protected by the Federal Confidentiality of Alcohol and Drug Abuse Patient Records regulations: The Federal rules restrict any use of the information to criminally investigate or prosecute any alcohol or drug abuse patient.[facility] HospitalIn the event this information is protected by the Federal Confidentiality of Alcohol and Drug Abuse Patient Records regulations: The Federal rules restrict any use of the information to criminally investigate or prosecute any alcohol or drug abuse patient.[facility] HospitalIn the event this information is protected by the Federal Confidentiality of Alcohol and Drug Abuse Patient Records regulations: The Federal rules restrict any use of the information to criminally investigate or prosecute any alcohol or drug abuse patient.[facility] HospitalIn the event this information is protected [...] or prosecute any alcohol or drug abuse patient.[facility] HospitalIn the event this information is protected by the Federal Confidentiality of Alcohol and Drug Abuse Patient Records regulations: The Federal rules restrict any use of the information to criminally investigate or prosecute any alcohol or drug abuse patient.[facility] HospitalIn the event this information is protected by the Federal Confidentiality of Alcohol and Drug Abuse Patient Records regulations: The Federal rules restrict any use of the information to criminally investigate or prosecute any alcohol or drug abuse patient.[facility] HospitalIn the event this information is protected by the Federal Confidentiality of Alcohol and Drug Abuse Patient Records regulations: The Federal rules restrict any use of the information to criminally investigate or prosecute any alcohol or drug abuse patient.[facility] HospitalIn the event this information is protected by the Federal Confidentiality of Alcohol and Drug Abuse Patient Records regulations: The Federal rules restrict any use of the information to criminally investigate or prosecute any alcohol or drug abuse patient.[facility] HospitalIn the event this information is protected by the Federal Confidentiality of Alcohol and Drug Abuse Patient Records regulations: The Federal rules restrict any use of the information to criminally investigate or prosecute any alcohol or drug abuse patient.[facility] HospitalIn the event this information is protected by the Federal Confidentiality of Alcohol and Drug Abuse Patient Records regulations: The Federal rules restrict any use of the information to criminally investigate or prosecute any alcohol or drug abuse patient.[facility] HospitalIn the event this information is protected by the Federal Confidentiality of Alcohol and Drug Abuse Patient Records regulations: The Federal rules restrict any use of the information to criminally investigate or prosecute any alcohol or drug abuse patient.[facility] HospitalIn the event this information is protected by the Federal Confidentiality of Alcohol and Drug Abuse Patient Records regulations: The Federal rules restrict any use of the information to criminally investigate or prosecute any alcohol or drug abuse patient.[facility] HospitalIn the event this information is protected by the Federal Confidentiality of Alcohol and Drug Abuse Patient Records regulations: The Federal rules restrict any use of the information to criminally investigate or prosecute any alcohol or drug abuse patient.[facility] HospitalIn the event this information is protected by the Federal Confidentiality of Alcohol and Drug Abuse Patient Records regulations: The Federal rules restrict any use of the information to criminally investigate or prosecute any alcohol or drug abuse patient.[facility] HospitalIn the event this information is protected by the Federal Confidentiality of Alcohol and Drug Abuse Patient Records regulations: The Federal rules restrict any use of the information to criminally investigate or prosecute any alcohol or drug abuse patient.[facility] HospitalIn the event this information is protected by the Federal Confidentiality of Alcohol and Drug Abuse Patient Records regulations: The Federal rules restrict any use of the information to criminally investigate or prosecute any alcohol or drug abuse patient.[facility] HospitalIn the event this information is protected by the Federal Confidentiality of Alcohol and Drug Abuse Patient Records regulations: The Federal rules restrict any use of the information to criminally investigate or prosecute any alcohol or drug abuse patient.[facility] HospitalIn the event this information is protected by the Federal Confidentiality of Alcohol and Drug Abuse Patient Records regulations: The Federal rules restrict any use of the information to criminally investigate or prosecute any alcohol or drug abuse patient.[facility] HospitalIn the event this information is protected by the Federal Confidentiality of Alcohol and Drug Abuse Patient Records regulations: The Federal rules restrict any use of the information to criminally investigate or prosecute any alcohol or drug abuse patient.[facility] HospitalIn the event this information is protected by the Federal Confidentiality of Alcohol and Drug Abuse Patient Records regulations: The Federal rules restrict any use of the information to criminally investigate or prosecute any alcohol or drug abuse patient.[facility] HospitalIn the event this information is protected by the Federal Confidentiality of Alcohol and Drug Abuse Patient Records regulations: The Federal rules restrict any use of the information to criminally investigate or prosecute any alcohol or drug abuse patient.[facility] HospitalIn the event this information is protected by the Federal Confidentiality of Alcohol and Drug Abuse Patient Records regulations: The Federal rules restrict any use of the information to criminally investigate or prosecute any alcohol or drug abuse patient.[facility] HospitalIn the event this information is protected by the Federal Confidentiality of Alcohol and Drug Abuse Patient Records regulations: The Federal rules restrict any use of the information to criminally investigate or prosecute any alcohol or drug abuse patient.[facility] HospitalIn the event this information is protected by the Federal Confidentiality of Alcohol and Drug Abuse Patient Records regulations: The Federal rules restrict any use of the information to criminally investigate or prosecute any alcohol or drug abuse patient.[facility] HospitalIn the event this information is protected by the Federal Confidentiality of Alcohol and Drug Abuse Patient Records regulations: The Federal rules restrict any use of the information to criminally investigate or prosecute any alcohol or drug abuse patient.[facility] HospitalIn the event this information is protected by the Federal Confidentiality of Alcohol and Drug Abuse Patient Records regulations: The Federal rules restrict any use of the information to criminally investigate or prosecute any alcohol or drug abuse patient.[facility] HospitalIn the event this information is protected by the Federal Confidentiality of Alcohol and Drug Abuse Patient Records regulations: The Federal rules restrict any use of the information to criminally investigate or prosecute any alcohol or drug abuse patient.[facility] HospitalIn the event this information is protected by the Federal Confidentiality of Alcohol and Drug Abuse Patient Records regulations: The Federal rules restrict any use of the information to criminally investigate or prosecute any alcohol or drug abuse patient.[facility] HospitalIn the event this information is protected by the Federal Confidentiality of Alcohol and Drug Abuse Patient Records regulations: The Federal rules restrict any use of the information to criminally investigate or prosecute any alcohol or drug abuse patient.[facility] HospitalIn the event this information is protected by the Federal Confidentiality of Alcohol and Drug Abuse Patient Records regulations: The Federal rules restrict any use of the information to criminally investigate or prosecute any alcohol or drug abuse patient.[facility] HospitalIn the event this information is protected by the Federal Confidentiality of Alcohol and Drug Abuse Patient Records regulations: The Federal rules restrict any use of the information to criminally investigate or prosecute any alcohol or drug abuse patient.[facility] HospitalIn the event this information is protected by the Federal Confidentiality of Alcohol and Drug Abuse Patient Records regulations: The Federal rules restrict any use of the information to criminally investigate or prosecute any alcohol or drug abuse patient.[facility] HospitalIn the event this information is protected by the Federal Confidentiality of Alcohol and Drug Abuse Patient Records regulations: The Federal rules restrict any use of the information to criminally investigate or prosecute any alcohol or drug abuse patient.[facility] HospitalIn the event this information is protected by the Federal Confidentiality of Alcohol and Drug Abuse Patient Records regulations: The Federal rules restrict any use of the information to criminally investigate or prosecute any alcohol or drug abuse patient.[facility] HospitalIn the event this information is protected by the Federal Confidentiality of Alcohol and Drug Abuse Patient Records regulations: The Federal rules restrict any use of the information to criminally investigate or prosecute any alcohol or drug abuse patient.[facility] HospitalIn the event this information is protected by the Federal Confidentiality of Alcohol and Drug Abuse Patient Records regulations: The Federal rules restrict any use of the information to criminally investigate or prosecute any alcohol or drug abuse patient.[facility] HospitalIn the event this information is protected by the Federal Confidentiality of Alcohol and Drug Abuse Patient Records regulations: The Federal rules restrict any use of the information to criminally investigate or prosecute any alcohol or drug abuse patient.[facility] HospitalIn the event this information is protected by the Federal Confidentiality of Alcohol and Drug Abuse Patient Records regulations: The Federal rules restrict any use of the information to criminally investigate or prosecute any alcohol or drug abuse patient.[facility] HospitalIn the event this information is protected by the Federal Confidentiality of Alcohol and Drug Abuse Patient Records regulations: The Federal rules restrict any use of the information to criminally investigate or prosecute any alcohol or drug abuse patient.[facility] HospitalIn the event this information is protected by the Federal Confidentiality of Alcohol and Drug Abuse Patient Records regulations: The Federal rules restrict any use of the information to criminally investigate or prosecute any alcohol or drug abuse patient.[facility] HospitalIn the event this information is protected by the Federal Confidentiality of Alcohol and Drug Abuse Patient Records regulations: The Federal rules restrict any use of the information to criminally investigate or prosecute any alcohol or drug abuse patient.[facility] HospitalIn the event this information is protected by the Federal Confidentiality of Alcohol and Drug Abuse Patient Records regulations: The Federal rules restrict any use of the information to criminally investigate or prosecute any alcohol or drug abuse patient.[facility] HospitalIn the event this information is protected by the Federal Confidentiality of Alcohol and Drug Abuse Patient Records regulations: The Federal rules restrict any use of the information to criminally investigate or prosecute any alcohol or drug abuse patient.[facility] HospitalIn the event this information is protected by the Federal Confidentiality of Alcohol and Drug Abuse Patient Records regulations: The Federal rules restrict any use of the information to criminally investigate or prosecute any alcohol or drug abuse patient.[facility] HospitalIn the event this information is protected by the Federal Confidentiality of Alcohol and Drug Abuse Patient Records regulations: The Federal rules restrict any use of the information to criminally investigate or prosecute any alcohol or drug abuse patient.[facility] HospitalIn the event this information is protected by the Federal Confidentiality of Alcohol and Drug Abuse Patient Records regulations: The Federal rules restrict any use of the information to criminally investigate or prosecute any alcohol or drug abuse patient.[facility] HospitalIn the event this information is protected by the Federal Confidentiality of Alcohol and Drug Abuse Patient Records regulations: The Federal rules restrict any use of the information to criminally investigate or prosecute any alcohol or drug abuse patient.[facility] HospitalIn the event this information is protected by the Federal Confidentiality of Alcohol and Drug Abuse Patient Records regulations: The Federal rules restrict any use of the information to criminally investigate or prosecute any alcohol or drug abuse patient.[facility] HospitalIn the event this information is protected by the Federal Confidentiality of Alcohol and Drug Abuse Patient Records regulations: The Federal rules restrict any use of the information to criminally investigate or prosecute any alcohol or drug abuse patient.[facility] HospitalIn the event this information is protected by the Federal Confidentiality of Alcohol and Drug Abuse Patient Records regulations: The Federal rules restrict any use of the information to criminally investigate or prosecute any alcohol or drug abuse patient.[facility] HospitalIn the event this information is protected by the Federal Confidentiality of Alcohol and Drug Abuse Patient Records regulations: The Federal rules restrict any use of the information to criminally investigate or prosecute any alcohol or drug abuse patient.[facility] HospitalIn the event this information is protected by the Federal Confidentiality of Alcohol and Drug Abuse Patient Records regulations: The Federal rules restrict any use of the information to criminally investigate or prosecute any alcohol or drug abuse patient.[facility] HospitalIn the event this information is protected [...] or prosecute any alcohol or drug abuse patient.[facility] HospitalIn the event this information is protected by the Federal Confidentiality of Alcohol and Drug Abuse Patient Records regulations: The Federal rules restrict any use of the information to criminally investigate or prosecute any alcohol or drug abuse patient.[facility] HospitalIn the event this information is protected by the Federal Confidentiality of Alcohol and Drug Abuse Patient Records regulations: The Federal rules restrict any use of the information to criminally investigate or prosecute any alcohol or drug abuse patient.[facility] HospitalIn the event this information is protected by the Federal Confidentiality of Alcohol and Drug Abuse Patient Records regulations: The Federal rules restrict any use of the information to criminally investigate or prosecute any alcohol or drug abuse patient.[facility] HospitalIn the event this information is protected by the Federal Confidentiality of Alcohol and Drug Abuse Patient Records regulations: The Federal rules restrict any use of the information to criminally investigate or prosecute any alcohol or drug abuse patient.[facility] HospitalIn the event this information is protected by the Federal Confidentiality of Alcohol and Drug Abuse Patient Records regulations: The Federal rules restrict any use of the information to criminally investigate or prosecute any alcohol or drug abuse patient.[facility] HospitalIn the event this information is protected by the Federal Confidentiality of Alcohol and Drug Abuse Patient Records regulations: The Federal rules restrict any use of the information to criminally investigate or prosecute any alcohol or drug abuse patient.[facility] HospitalIn the event this information is protected by the Federal Confidentiality of Alcohol and Drug Abuse Patient Records regulations: The Federal rules restrict any use of the information to criminally investigate or prosecute any alcohol or drug abuse patient.[facility] HospitalIn the event this information is protected by the Federal Confidentiality of Alcohol and Drug Abuse Patient Records regulations: The Federal rules restrict any use of the information to criminally investigate or prosecute any alcohol or drug abuse patient.[facility] HospitalIn the event this information is protected by the Federal Confidentiality of Alcohol and Drug Abuse Patient Records regulations: The Federal rules restrict any use of the information to criminally investigate or prosecute any alcohol or drug abuse patient.[facility] HospitalIn the event this information is protected by the Federal Confidentiality of Alcohol and Drug Abuse Patient Records regulations: The Federal rules restrict any use of the information to criminally investigate or prosecute any alcohol or drug abuse patient.[facility] HospitalIn the event this information is protected by the Federal Confidentiality of Alcohol and Drug Abuse Patient Records regulations: The Federal rules restrict any use of the information to criminally investigate or prosecute any alcohol or drug abuse patient.[facility] HospitalIn the event this information is protected by the Federal Confidentiality of Alcohol and Drug Abuse Patient Records regulations: The Federal rules restrict any use of the information to criminally investigate or prosecute any alcohol or drug abuse patient.[facility] HospitalIn the event this information is protected by the Federal Confidentiality of Alcohol and Drug Abuse Patient Records regulations: The Federal rules restrict any use of the information to criminally investigate or prosecute any alcohol or drug abuse patient.[facility] HospitalIn the event this information is protected by the Federal Confidentiality of Alcohol and Drug Abuse Patient Records regulations: The Federal rules restrict any use of the information to criminally investigate or prosecute any alcohol or drug abuse patient.[facility] HospitalIn the event this information is protected by the Federal Confidentiality of Alcohol and Drug Abuse Patient Records regulations: The Federal rules restrict any use of the information to criminally investigate or prosecute any alcohol or drug abuse patient.[facility] HospitalIn the event this information is protected by the Federal Confidentiality of Alcohol and Drug Abuse Patient Records regulations: The Federal rules restrict any use of the information to criminally investigate or prosecute any alcohol or drug abuse patient.[facility] HospitalIn the event this information is protected by the Federal Confidentiality of Alcohol and Drug Abuse Patient Records regulations: The Federal rules restrict any use of the information to criminally investigate or prosecute any alcohol or drug abuse patient.[facility] HospitalIn the event this information is protected by the Federal Confidentiality of Alcohol and Drug Abuse Patient Records regulations: The Federal rules restrict any use of the information to criminally investigate or prosecute any alcohol or drug abuse patient.[facility] HospitalIn the event this information is protected by the Federal Confidentiality of Alcohol and Drug Abuse Patient Records regulations: The Federal rules restrict any use of the information to criminally investigate or prosecute any alcohol or drug abuse patient.[facility] HospitalIn the event this information is protected by the Federal Confidentiality of Alcohol and Drug Abuse Patient Records regulations: The Federal rules restrict any use of the information to criminally investigate or prosecute any alcohol or drug abuse patient.[facility] Reason for Visit (unrecogniz ed section and content) Reason Onset Date Comments Population Health Navigation Outreach 05/20/2021 [employer] Care Gaps Reason Comments Established Patient 4 month f [...] US Specialty Diagnoses / Procedures Referred By Divya reis Referred To Contact [facility] Diagnoses Abnormal mammogram Procedures US BREAST LTD LT US BREAST UNI REAL TIME WITH IMAGE LIMITED Brenda Shankar APRN.FINANCIAL ANALYSIS ADVISOR [address] [place] [address] Br Imaging [address] [place] [address] Referral ID Status Reason Start Date Expiration Date V isits Requested Visits Authorized [id number] Closed Auto-Generate d Referral 09/05/2021 10/05/2022 1 1 Reason Comments Radiology Mammogram Specialty Diagnoses / Procedures Referred By Divya t Referred To Contact [facility] Diagnoses Abnormal mammogram Procedures SABINO DIAGNOSTIC LT DIAGNOSTIC MAMMOGRAPHY COMPUTER-AIDED DETCJ UNI Brenda Shankar, SUPERVISOR IRRIGATION.FINANCIAL ANALYSIS ADVISOR [address] [place] [address] Br Imaging [address] [place] [address] Referral ID Status Reason Start Date Expiration Date V isits Requested Visits Authorized [id number] Closed Auto-Generate d Referral 09/05/2021 10/05/2022 1 [...] ORTHOPAEDICS OFFICE/OUTPATIENT NEW HIGH MDM 60-74 MINUTES Twyla Cuevas SUPERVISOR IRRIGATION.FINANCIAL ANALYSIS ADVISOR [address] [place] [address] Referral ID Status Reason Start Date Expiration Date Visits Requested Visits Authorized [id number] Pending Review PCP Requested Referral 10/11/2022 10/11/2023 1 1 Reason Onset Date Comments Refill Request 12/20/[address] Specialty Diagnoses / Procedures Referred By Contac t Referred To Contact CT IMAGING Diagnoses Lung nodules Procedures CT CHEST WO IVCON DIAGNOSTIC COMPUTED TOMOGRAPHY THORAX W/O Florence Duncan MD [address] [place] [address] [place] [address] Referral ID Status Reason Start Date Expiration Date V isits Requested Visits Authorized [id number] Closed Auto-Generate d Referral 11/29/2021 12/29/2022 1 1 Reason Comments Imm/Inj COVID vaccine and di scuss RSV Reason Comments Refill Request Reason Comments Cough Cough and congestion x 4 weeks Reason Onset Date Comments Appointment 03/23/2023 Reason Comments Results worsening liver enzy mes Reason Comments Clinical Update Reason Onset Date Comments Refill Request 06/07/2023 Reason Onset Date Comments Refill Request 07/01/2023 Reason Onset Date Comments Community Monitoring Outreach 07/05/2023 F/ U engagement [facility]M Home Monitoring Reason Comments Pain R leg - swelling and pain Reason Comments Discharge Skilled Rehab Discharged from [facility] Reason Onset Date Comments Refill Request 07/17/2023 Reason Comments Medication Problem Reason Onset Date Comments Refill Request 07/28/2023 Reason Onset Date Comments Refill Request 07/31/2023 Reason Onset Date Comments Refill Request 08/07/2023 Reason Comments Edema Reason Comments Results Reason Comments Appointment Reason Comments CARD Follow Up Annual Annual follow upPt leg edema has improved. No current cardiac concerns EKG 03/21/2023Echo 03/22/[address] Specialty Diagnoses / Procedures Referred By Divya reis Referred To Contact CT IMAGING Diagnoses Disseminated histoplasmosis Procedures CT CHEST WO IVCON DIAGNOSTIC COMPUTED TOMOGRAPHY THORAX W/O Geno Lopez MD [address] [address] [place] [address] Referral ID Status Reason Start Date Expiration Date V isits Requested Visits Authorized [id number] Closed Auto-Generate d Referral 08/30/2023 02/19/2024 1 1 Reason Onset Date Comments Refill Request 08/30/2023 Reason Onset Date Comments Community Monitoring Outreach 08/31/2023 F/ U engagement CDM Home Monitoring Reason Comments Histoplasmosis Reason Comments Hospital F/U [facility] ED/Hospital disc harge 08/18/23 Reason Comments Med Change Request Reason Onset Date Comments Refill Request 09/27/2023 Reason Comments Follow Up Reason Onset Date Comments Community Monitoring Outreach 10/17/2023 F/ U engagement CDM Home Monitoring Reason Comments Follow Up Room 9"I no longer n eed to take blood pressure medication. I stopped drinking coffee."Current Histoplasmosis (2nd time in 6 years)Recent BLE Edema and Discomfort- compression[facility] BleedingDoesn't like taking diuretics when she goes places - makes her use bathroom Reason Onset Date Comments Refill Request 10/20/2023 Reason Comments Forms Reason Onset Date Comments Refill Request 11/03/2023 Reason Comments Orders poc protime Reason Comments Patient Question Reason Onset Date Comments Refill Request 12/09/2023 Reason Onset Date Comments Refill Request 12/11/2023 Reason Onset Date Comments community monitoring outreach 12/19/2023 en gagement Reason Onset Date Comments community monitoring outreach 12/20/2023 en gagement Reason Onset Date Comments Results 01/04/2024 Reason Comments Disseminated histoplasmosis Reason Comments TAVR Consult Specialty Diagnoses / Procedures Referred By Divya reis Referred To Contact Cardiology Diagnoses Aortic valve stenosis, etiology of cardiac valve disease unspecified Mitral valve stenosis, unspecified etiology Pericardial effusion Procedures CONSULT TO CARDIOLOGY OFFICE/OUTPATIENT NEW HIGH MDM 60 MINUTES Jimbo Swanson, SUPERVISOR IRRIGATION.INDUSTRIAL CHEMISTRY TEACHER [address] [place] [address] Referral ID Status Reason Start Date Expiration Date V isits Requested Visits Authorized [id number] Closed PCP Requested Referral 10/11/2023 10/10/2024 1 1 Reason Onset Date Comments Community Monitoring Outreach 01/21/2024 Te lephonic Outreach CDM Home Monitoring Reason Onset Date Comments Community Monitoring Outreach 01/29/2024 2n d attempt Telephonic Outreach CDM Home Monitoring Reason Onset Date Comments Refill Request 02/20/2024 Reason Comments F/U 4 month Reason Comments New Patient Reason Onset Date Comments Population Health Navigation Outreach 03/21/2024 Aetna High Risk - Attempt 1 Reason Comments Radio Main J1 Specialty Diagnoses / Procedures Referred By Divya reis Referred To Contact CT IMAGING Diagnoses Nonrheumatic aortic valve stenosis Encounter for preprocedural cardiovascular examination Procedures CTA CHEST/ABD/PEL (GATED) W IVCON CT ANGIOGRAPHY CHEST W/CONTRAST/NONCONTRAST CT ANGIO ABD&PLVIS CNTRST MTRL W/WO CNTRST Monica Zavala, SUPERVISOR IRRIGATION.FINANCIAL ANALYSIS ADVISOR [address] [place] [address] Ct Imaging [place] [address] Referral ID Status Reason Start Date Expiration Date V isits Requested Visits Authorized [id number] Closed Auto-Generate d Referral 01/08/2024 02/06/2025 1 1 Reason Comments Patient Education Reason Comments Spirometry Specialty Diagnoses / Procedures Referred By Contac t Referred [facility] Diagnoses Nonrheumatic aortic valve stenosis Procedures SPIROMETRY BASELINE ONLY SPMTRY W/VC EXPIRATORY [place] W/WO MXML VOL VNTJ Trent-Monica Olivares, SUPERVISOR IRRIGATION.FINANCIAL ANALYSIS ADVISOR [address] [place] [phone] Respiratory [place] [address] [place] [address] Referral ID Status Reason Start Date Expiration Date V isits Requested Visits Authorized [id number] Closed Auto-Generate d Referral 01/08/2024 02/06/2025 1 1 Specialty Diagnoses / Procedures Referred By Contac t Referred To Contact [facility] Diagnoses Nonrheumatic aortic valve stenosis Procedures LUNG DIFFUSION CAPACITY (DLCO) DIFFUSING CAPACITY Trent-Monica Olivares, SUPERVISOR IRRIGATION.FINANCIAL ANALYSIS ADVISOR [address] [phone] [place] [address] Referral ID Status Reason Start Date Expiration Date V isits Requested Visits Authorized [id number] Closed Auto-Generate d Referral 01/08/2024 02/06/2025 1 1 Reason Comments Aortic Stenosis Reason Comments Radiology [place] Specialty Diagnoses / Procedures [facility] Diagnoses Nonrheumatic aortic valve stenosis Procedures NM SPECT/CT CARDIAC AMYLOID RP LOCLZJ MARY SPECT W/CT 1 AREA 1 DAY IMAGING [place]-Monica Olivares, CONNIE.FINANCIAL ANALYSIS ADVISOR [address] [place] [phone] [facility] Functional [facility] [address] [place] [address] Referral ID Status Reason Start Date Expiration Date V isits Requested Visits Authorized [id number] Closed Auto-Generate d Referral 01/08/2024 02/06/2025 1 1 Reason Onset Date Comments Population Health Navigation Outreach 03/26/2024 Aetna High Risk - Attempt 2 Reason Onset Date Comments Population Health Navigation Outreach 03/31/2024 Aetna High Risk - Attempt 3 Reason Comments TAVR Meeting Reason Comments Insurance Authorization Reason Comments Referral Information Surgical Consult [facility] Dr[facility] Francis Reason Comments Appointment TAVR scheduling Reason Comments Structural Dental Clearance Reason Onset Date Comments Transition Of Care 05/05/2024 Reason Onset Date Comments Anticoagulation 05/09/2024 Reason Onset Date Comments Transition Of Care 05/12/2024 Reason Onset Date Comments Transition Of Care 05/19/2024 Reason Comments Medicare Wellness Exam Reason Comments Consult Reason Onset Date Comments Transition Of Care 05/26/2024 Reason Onset Date Comments Refill Request 06/20/2024 Reason Onset Date Comments Refill Request 07/02/2024 Reason Onset Date Comments Refill Request 07/07/2024 Reason Onset Date Comments Care Coordination 07/29/2024 Chart review a nd outreach for CHF GDMT Care Path Reason Onset Date Comments Refill Request 08/16/2024 Care Teams (unrecognized sec tion and content) Railroad Shop Inspector Relationship Specialty Start Date End Date Claudine Durán MD [address] [place], [place] [id number] PCP - General Internal Medicine 03/02/16 Will Hurley [address] [place], [place] [address] Referring Rheumatology 04/09/18 Gold Colón, senior rd engineerScrubber System Attendant Internal Medicine 07/22/20 Railroad Shop Inspector Relationship Specialty Start Date End Date Claudine Durán MD [address] [place], [place] [id number] PCP - General Internal Medicine 03/02/16 Will Hurley [address] [place] [address] Referring Rheumatology 04/09/18 Gold Colón, senior rd engineerScrubber System Attendant Internal Medicine 07/22/20 Railroad Shop Inspector Relationship Specialty Start Date End Date Claudine Durán MD [address] [place], [place] [address] PCP - General Internal Medicine 03/02/16 Will Hurley [address] [facility] [place] [address] Referring Rheumatology 04/09/18 Gold Colón, senior rd engineerScrubber System Attendant Internal Medicine 07/22/20 Railroad Shop Inspector Relationship Specialty Start Date End Date Claudine Durán MD [address] [place], [place] [address] PCP - General Internal Medicine 03/02/16 Will granger [address] [place] [address] Referring Rheumatology 04/09/18 Gold Colón, senior rd engineerScrubber System Attendant Internal Medicine 07/22/20 Railroad Shop Inspector Relationship Specialty Start Date End Date Claudine Durán MD [address] [place] [address] PCP - General Internal Medicine 03/02/16 Will granger [address] [facility] [place] [address] Referring Rheumatology 04/09/18 Gold Colón, senior rd engineerScrubber System Attendant Internal Medicine 07/22/20 Railroad Shop Inspector Relationship Specialty Start Date End Date Claudine Durán MD [address] [place], [place] [id number] PCP - General Internal Medicine 03/02/16 Will Hurley [address] [facility] [place] [address] Referring Rheumatology 04/09/18 Gold Colón, senior rd engineerScrubber System Attendant Internal Medicine 07/22/20 Railroad Shop Inspector Relationship Specialty Start Date End Date Claudine Durán MD [address] [place], [place] [address] PCP - General Internal Medicine 03/02/16 Will Hurley [address] [facility] [place] [address] Referring Rheumatology 04/09/18 Gold Colón, senior rd engineerScrubber System Attendant Internal Medicine 07/22/20 Railroad Shop Inspector Relationship Specialty Start Date End Date Claudine Durán MD [address] [place] [address] PCP - General Internal Medicine 03/02/16 Will [address] [place] [address] Referring Rheumatology 04/09/18 Gold Colón, senior rd engineerScrubber System Attendant Internal Medicine 07/22/20 Railroad Shop Inspector Relationship Specialty Start Date End Date Claudine Durán MD [address] [place] [address] PCP - General Internal Medicine 03/02/16 Will [address] [facility] [place] [address] Referring Rheumatology 04/09/18 Gold Colón, senior rd engineerScrubber System Attendant Internal Medicine 07/22/20 Railroad Shop Inspector Relationship Specialty Start Date End Date Claudine Durán MD [address] [place], [place] [id number] PCP - General Internal Medicine 03/02/16 Will [address] [facility] [place] [address] Referring Rheumatology 04/09/18 Gold Colón, senior rd engineerScrubber System Attendant Internal Medicine 07/22/20 Railroad Shop Inspector Relationship Specialty Start Date End Date Claudine Durán MD [address] [place] [address] PCP - General Internal Medicine 03/02/16 Will Hurley [address] [facility] [place] [address] Referring Rheumatology 04/09/18 Gold Colón, senior rd engineerScrubber System Attendant Internal Medicine 07/22/20 Railroad Shop Inspector Relationship Specialty Start Date End Date Claudine Durán MD [address] [place] [address] PCP - General Internal Medicine 03/02/16 Will Hurley[address] [facility] [place] [address] Referring Rheumatology 04/09/18 Gold Colón, senior rd engineerScrubber System Attendant Internal Medicine 07/22/20 Railroad Shop Inspector Relationship Specialty Start Date End Date Claudine Durán MD [address] [place] [address] PCP - General Internal Medicine 03/02/16 Will Hurley[address] [facility] [place] [address] Referring Rheumatology 04/09/18 Gold Colón, senior rd engineerScrubber System Attendant Internal Medicine 07/22/20 Railroad Shop Inspector Relationship Specialty Start Date End Date Claudine Durán MD [address] [place] [address] PCP - General Internal Medicine 03/02/16 Will Hurley [address] [facility] [place] [address] Referring Rheumatology 04/09/18 Gold Colón, senior rd engineerScrubber System Attendant Internal Medicine 07/22/20 Railroad Shop Inspector Relationship Specialty Start Date End Date Claudine Durán MD [address] [place] [address] PCP - General Internal Medicine 03/02/16 Will Hurley [address] [facility] [place] [address] Referring Rheumatology 04/09/18 Gold Colón, senior rd engineerScrubber System Attendant Internal Medicine 07/22/20 Railroad Shop Inspector Relationship Specialty Start Date End Date Claudine Durán MD [address] [place] [address] PCP - General Internal Medicine 03/02/16 Will Hurley [address] [facility] [place] [address] Referring Rheumatology 04/09/18 Gold Colón RN Scrubber System Attendant Internal Medicine 07/22/20 Railroad Shop Inspector Relationship Specialty Start Date End Date Claudine Durán MD [address] [place] [address] PCP - General Internal Medicine 03/02/16 Will Hurley [address] [facility] [place] [address] Referring Rheumatology 04/09/18 Gold Colón, senior rd engineerScrubber System Attendant Internal Medicine 07/22/20 Railroad Shop Inspector Relationship Specialty Start Date End Date Claudine Durán MD [address] [place] [address] PCP - General Internal Medicine 03/02/16 Will Hurley[address] [place] [address] Referring Rheumatology 04/09/18 Gold Colón, senior rd engineerScrubber System Attendant Internal Medicine 07/22/20 Railroad Shop Inspector Relationship Specialty Start Date End Date Claudine Durán MD [address] [place] [address] PCP - General Internal Medicine 03/02/16 Will Hurley [address] [facility] [place] [address] Referring Rheumatology 04/09/18 Lulú Ramos, RN [address] [place] [address] Scrubber System Attendant Family Medicine 07/22/20 Railroad Shop Inspector Relationship Specialty Start Date End Date Claudine Durán MD [address] [place] [address] PCP - General Internal Medicine 03/02/16 Will Hurley [facility] [address] [facility] [place] [address] Referring Rheumatology 04/09/[address] engineerScrubber System Attendant Internal Medicine 07/22/20 12/20/21 Lulú Ramos, PAULA [address] [place] [address] Scrubber System Attendant Family Medicine 07/22/20 Railroad Shop Inspector Relationship Specialty Start Date End Date Claudine Durán MD [address] [place] [address] PCP - General Internal Medicine 03/02/16 Will Hurley [address] [facility] [place] [address] Referring Rheumatology 04/09/18 Lulú Ramos, PAULA [address] [facility], [place] [address] Scrubber System Attendant Family Medicine 07/22/20 Railroad Shop Inspector Relationship Specialty Start Date End Date Claudine Durán MD [address] [place] [address] PCP - General Internal Medicine 03/02/16 Will Hurley [facility] [address] [facility] [place] [address] Referring Rheumatology 04/09/18 Lulú Ramos, PAULA [address] [place] [address] Scrubber System Attendant Family Medicine 07/22/20 Railroad Shop Inspector Relationship Specialty Start Date End Date Claudine Durán MD [address] [place] [address] PCP - General Internal Medicine 03/02/16 Will Hurley [facility] [address] [facility] [place] [address] Referring Rheumatology 04/09/18 Lulú Ramos, PAULA [address] [place] [address] Scrubber System Attendant Family Medicine 07/22/20 Railroad Shop Inspector Relationship Specialty Start Date End Date Claudine Durán MD [address] [place] [address] PCP - General Internal Medicine 03/02/16 Will Hurley [facility] [address] [facility] [place] [address] Referring Rheumatology 04/09/18 Lulú Ramos, PAULA [address] [facility], [place] [id number] Scrubber System Attendant Family Medicine 07/22/20 Railroad Shop Inspector Relationship Specialty Start Date End Date Claudine Durán MD [address] [place] [address] PCP - General Internal Medicine 03/02/16 Will granger [address] [facility] [place] [address] Referring Rheumatology 04/09/18 Lulú Ramos, RN [address] [place] [address] Scrubber System Attendant Family Medicine 12/20/21 Railroad Shop Inspector Relationship Specialty Start Date End Date Claudine Durán MD [address] [place] [address] PCP - General Internal Medicine 03/02/16 Will Hurley [facility] N [facility] [place] [place] [address] Referring Rheumatology 04/09/18 Lulú Ramos, PAULA [address] [place] [address] Scrubber System Attendant Family Medicine 12/20/21 Railroad Shop Inspector Relationship Specialty Start Date End Date Claudine Durán MD [address] [place] [address] PCP - General Internal Medicine 03/02/16 Will Hurley [facility] N [facility] [place] [address] Referring Rheumatology 04/09/18 Lulú Ramos, PAULA [address] [place] [address] Scrubber System Attendant Family Medicine 12/20/21 Railroad Shop Inspector Relationship Specialty Start Date End Date Claudine Durán MD [address] [place] [address] PCP - General Internal Medicine 03/02/16 Will Hurley [facility] [address] [facility] [place] [address] Referring Rheumatology 04/09/18 Lulú Ramos, PAULA [address] [facility] [place] [address] Scrubber System Attendant Family Medicine 12/20/21 Railroad Shop Inspector Relationship Specialty Start Date End Date Claudine Durán MD [address] [place] [address] PCP - General Internal Medicine 03/02/16 Will Hurley[address] [facility] [place] [address] Referring Rheumatology 04/09/18 Lulú Ramos, PAULA [address] [place] [address] Scrubber System Attendant Family Medicine 12/20/21 Railroad Shop Inspector Relationship Specialty Start Date End Date Claudine Durán MD [address] [place] [address] PCP - General Internal Medicine 03/02/16 Will Hurley[address] [facility] [place] [address] Referring Rheumatology 04/09/18 Lulú Ramos RN [address] [facility] [place] [address] Scrubber System Attendant Family Medicine 12/20/21 Railroad Shop Inspector Relationship Specialty Start Date End Date Claudine Durán MD [address] [place] [address] PCP - General Internal Medicine 03/02/16 Will Hurley[address] [facility] [place] [address] Referring Rheumatology 04/09/18 Lulú Ramos, PAULA [address] [place] [address] Scrubber System Attendant Family Medicine 12/20/21 Railroad Shop Inspector Relationship Specialty Start Date End Date Claudine Durán MD [address] [facility], [place] [address]8721 PCP - General Internal Medicine 03/02/16 Will Hurley [facility] [address] [facility] [place] [address] Referring Rheumatology 04/09/18 Lulú Ramos, RN [address] [place] [address] Scrubber System Attendant Family Medicine 12/20/21 Railroad Shop Inspector Relationship Specialty Start Date End Date Claudine Durán MD [address] [place] [address] PCP - General Internal Medicine 03/02/16 Will Hurley [facility] [place] [address] Referring Rheumatology 04/09/18 Lulú Ramos, RN [address] [place] [address] Scrubber System Attendant Family Medicine 12/20/21 Railroad Shop Inspector Relationship Specialty Start Date End Date Claudine Durán MD [address] [place] [address] PCP - General Internal Medicine 03/02/16 Will Hurley [facility] [place] [address] Referring Rheumatology 04/09/18 Lulú Ramos, PAULA [address] [place] [address] Scrubber System Attendant Family Medicine 12/20/21 Railroad Shop Inspector Relationship Specialty Start Date End Date Claudine Durán MD [address] [place] [address] PCP - General Internal Medicine 03/02/16 Will Hurley [address] [facility] [place] [address] Referring Rheumatology 04/09/18 Ilda Miller, PAULA [address] [place] [address] Scrubber System Attendant 07/27/22 Railroad Shop Inspector Relationship Specialty Start Date End Date Claudine Durán MD [address] [place] [address] PCP - General Internal Medicine 03/02/16 Will Hurley [address] [facility] [place] [address] Referring Rheumatology 04/09/18 Ilda Miller RN [address] [place] [address] Scrubber System Attendant 07/27/22 Railroad Shop Inspector Relationship Specialty Start Date End Date Claudine Durán MD [address] [place], [place] [address] PCP - General Internal Medicine 03/02/16 Will Hurley [address] [facility] [place] [address] Referring Rheumatology 04/09/18 Ilda Miller RN [address] [place] [address] Scrubber System Attendant 07/27/22 Railroad Shop Inspector Relationship Specialty Start Date End Date Claudine Durán MD [address] [place] [address] PCP - General Internal Medicine 03/02/16 Will Hurley [address] [facility] [address] Referring Rheumatology 04/09/18 Ilda Miller, RN [address] [place] [address] Scrubber System Attendant 07/27/22 Railroad Shop Inspector Relationship Specialty Start Date End Date Claudine Durán MD [address] [place] [address] PCP - General Internal Medicine 03/02/16 Will Hurley [address] [facility] [place] [address] Referring Rheumatology 04/09/18 Ilda Miller RN [address] [place] [address] Scrubber System Attendant 07/27/22 Railroad Shop Inspector Relationship Specialty Start Date End Date Claudine Durán MD [address] [place] [address] PCP - General Internal Medicine 03/02/16 Will Hurley [address] [facility] [place] [address] Referring Rheumatology 04/09/18 Ilda Miller, PAULA [address] [place] [address] Scrubber System Attendant 07/27/22 Railroad Shop Inspector Relationship Specialty Start Date End Date Claudine Durán MD [address] [place], [place] 284[address] PCP - General Internal Medicine 03/02/16 Will Hurley [address] [facility] [place] [address] Referring Rheumatology 04/09/18 Ilda Miller RN [address] [place] [address] Scrubber System Attendant 07/27/22 Railroad Shop Inspector Relationship Specialty Start Date End Date Claudine Durán MD [address] [place] [address] PCP - General Internal Medicine 03/02/16 Will Hurley [address] [facility] [place] [address] Referring Rheumatology 04/09/18 Ilda Miller RN [address] [place] [address] Scrubber System Attendant 07/27/22 Railroad Shop Inspector Relationship Specialty Start Date End Date Claudine Durán MD [address] [place] [address] PCP - General Internal Medicine 03/02/16 Will Hurley [address] [facility] [place] [address] Referring Rheumatology 04/09/18 Ilda Miller RN [address] [place] [address] Scrubber System Attendant 07/27/22 Railroad Shop Inspector Relationship Specialty Start Date End Date Claudine Durán MD [address] [place] [address] PCP - General Internal Medicine 03/02/16 Will Hurley [address] [facility] [place] [address] Referring Rheumatology 04/09/18 Ilda Miller RN [address] [facility] [place] [address] Scrubber System Attendant 07/27/22 Railroad Shop Inspector Relationship Specialty Start Date End Date Claudine Durán MD [address] [place] [address] PCP - General Internal Medicine 03/02/16 Will Hurley [address] [facility] [place] [address] Referring Rheumatology 04/09/18 Ilda Miller RN [address] [place] [address] Scrubber System Attendant 07/27/22 Railroad Shop Inspector Relationship Specialty Start Date End Date Claudine Durán MD [address] [place] [address] PCP - General Internal Medicine 03/02/16 Will Hurley [address] [facility] [place] [address] Referring Rheumatology 04/09/18 Ilda Miller RN [address] [place] [address] Scrubber System Attendant 07/27/22 Railroad Shop Inspector Relationship Specialty Start Date End Date Claudine Durán MD [address] [place] [address] PCP - General Internal Medicine 03/02/16 Will Hurley [address] [facility] [place] [address] Referring Rheumatology 04/09/18 Lulú Ramos, PAULA [address] [place] [address] Scrubber System Attendant Family Medicine 12/20/2107/26 Railroad Shop Inspector Relationship Specialty Start Date End Date Claudine Durán MD [address] [place] [address] PCP - General Internal Medicine 03/02/16 Will Hurley [address] [place] [address] Referring Rheumatology 04/09/18 Ilda Miller, PAULA [address] [place] [address] Scrubber System Attendant 07/27/22 Team Status: Active Member Role Status Dates Dr. Claudine Durán MD Family Provider Active Dr. Claudine Durán MD Primary Care Provider Active Team Status: Inactive Member Role Status Dates Dr. Claudine Durán MD Primary Care Provider Active Dr. Bob Elias DO Emergency Provider Active Railroad Shop Inspector Relationship Specialty Start Date End Date Claudine Durán MD [address] [place] [address] PCP - General Internal Medicine 03/02/16 Will Hurley [address] [place] [address] Referring Rheumatology 04/09/18 Ilda Miller, PAULA [address] [place], [place] [address]31 Scrubber System Attendant 07/27/22 Team Status: Inactive Member Role Status Dates Dr. Claudine Durán MD Primary Care Provider Active Dr. Bob Elias DO Attending Provider, Emergency [facility] Active Team Status: Active Member Role Status Dates Dr. Claudine Durán MD Primary Care Provider Active Dr. Martín Cornejo DO Emergency Provider Active Dr. Laine Veras MD Admit Provider, Attending Provid er Active Railroad Shop Inspector Relationship Specialty Start Date End Date Claudine Durán MD [address] [place] [address] PCP - General Internal Medicine 03/02/16 Will Hurley [address] [facility] [place] [address] Referring Rheumatology 04/09/18 Ilda Miller RN [address] [place], [place] [address] Scrubber System Attendant 07/27/22 Lynne Maynard, senior rd engineer Cement Worker 03/26/23 Team Status: Active Member Role Status Dates Dr. Claudine Durán MD Primary Care Provider Active Dr. Martín Cornejo DO Emergency Provider Active Dr. Laine Veras MD Admit Provider, Other Provider A ctive Dr. Alisa Mathew MD Attending Provider, Other Prov ider Active Team Status: Inactive Member Role Status Dates Dr. Claudine Durán MD Primary Care Provider Active Dr. Etienne Thacker MD Emergency Provider Active Team Status: Inactive Member Role Status Dates Dr. Claudine Durán MD Primary Care Provider Active Dr. Martín Cornejo DO Emergency Provider Active Dr. Laine Veras MD Admit Provider, Other Provider A ctive Dr. Alisa Mathew MD Attending Provider Active Railroad Shop Inspector Relationship Specialty Start Date End Date Claudine Durán MD [address] [place] [address] PCP - General Internal Medicine 03/02/[address] [facility], [place] [address] Referring Rheumatology 04/09/18 Ilda Miller RN [address] [place], [place] [address]31 Scrubber System Attendant 07/27/22 Lynne Maynard, senior rd engineer Cement Worker 03/26/23 Railroad Shop Inspector Relationship Specialty Start Date End Date Claudine Durán MD [address] [place] [address] PCP - General Internal Medicine 03/02/16 Will Hurley [address] [place] [address] Referring Rheumatology 04/09/18 Ilda Miller RN [address] [place] [address] Scrubber System Attendant 07/27/22 Lynne Maynard RN Primary Care Cement Worker 03/26/23 Team Status: Active Member Role Status Dates Dr. Claudine Durán MD Primary Care Provider Active Dr. Bob Tariq MD Attending Provider Active Team Status: Active Member Role Status Dates Dr. Claudine Durán MD Primary Care Provider Active Dr. Emery Schofield MD Attending Provider Activ e Team Status: Active Member Role Status Dates Dr. Claudine Durán MD Primary Care Provider Active Dr. Martín Cornejo , Emergency Provider Active Dr. Laine Veras MD Admit Provider, Other Provider A ctive Dr. Jasmyn Chan , DO Other Provider Active Dr. Alisa Mathew MD Other Provider Active Dr. Mathew Orellana , Attending Provider Active Team Status: Active Member Role Status Dates Dr. Claudine Durán MD Primary Care Provider Active Dr. Mathew Orellana , DO Attending Provider Active Team Status: Active Member Role Status Dates Dr. Claudine Durán MD Primary Care Provider Active Dr. Martín Cornejo , Emergency Provider Active Dr. Laine Veras MD Admit Provider, Other Provider A ctive Dr. Jasmyn Chan , DO Attending Provider, Other Pro vider Active Dr. Alisa Mathew MD Other Provider Active Team Status: Active Member Role Status Dates Dr. Claudine Durán MD Primary Care Provider Active Dr. Martín Cornejo , Emergency Provider Active Dr. Laine Veras MD Admit Provider, Other Provider A ctive Dr. Jasmyn Chan , DO Attending Provider, Other Pro vider Active Dr. Alisa Mathew MD Other Provider Active Dr. Naman Meredith MD Other Provider Active Dr. Lg Rios MD Other Provider Active Dr. Rachael Weiss MD Other Provider Active Dr. Stevan Rodríguez MD Other Provider Active Dr. Jing Reyes MD Other Provider Active Dr. Efrain Quevedo MD Other Provider Active Dr. Frederick Dick , DO Other Provider Active Team Status: Active Member Role Status Dates Dr. Claudine Durán MD Primary Care Provider Active Dr. Martín Cornejo , DO Emergency Provider Active Dr. Laine Veras MD Admit Provider, Other Provider A ctive Dr. Jasmyn Chan , DO Other Provider Active Dr. Alisa Mathew MD Other Provider Active Dr. Naman Meredith MD Other Provider Active Dr. Lg Rios MD Other Provider Active Dr. Rachael Weiss MD Other Provider Active Dr. Stevan Rodríguez MD Other Provider Active Dr. Jing Reyes MD Other Provider Active Dr. Efrain Quevedo MD Other Provider Active Dr. Frederick Dick , DO Other Provider Active Dr. Mathew Orellana , DO Attending Provider Active Team Status: Active Member Role Status Dates Dr. Claudine Durán MD Primary Care Provider Active Dr. Martín Cornejo , DO Emergency Provider Active Dr. Laine Veras MD Admit Provider, Other Provider A ctive Dr. Jasmyn Chan , DO Attending Provider, Other Pro vider Active Dr. Alisa Mathew MD Other Provider Active Dr. Naman Meredith MD Other Provider Active Dr. Lg Rios MD Other Provider Active Dr. Rachael Weiss MD Other Provider Active Dr. Stevan Rodríguez MD Other Provider Active Dr. Jing Reyes MD Other Provider Active Dr. Efrain Quevedo MD Other Provider Active Dr. Frederick Dick , DO Other Provider Active Dr. Geno Rush MD Other Provider Active Dr. Adarsh Prakash MD Other Provider Active Dr. Alcides Abel MD Other Provider Active Dr. London Sandra MD Other Provider Active Dr. Chris Royal MD Other Provider Active Dr. Leobardo Calloway MD Other Provider Active Dr. Jorgito Agarwal , DO Other Provider Active Rosalina Herrera SANITARY LANDFILL OPERATOR, SANITARY LANDFILL OPERATOR-C Other Provider Active Team Status: Active Member Role Status Dates Dr. Claudine Durán MD Primary Care Provider Active Dr. Martín Cornejo , DO Emergency Provider Active Dr. Laine Veras MD Admit Provider, Other Provider A ctive Dr. Jasmyn Chan , DO Other Provider Active Dr. Alisa Mathew MD Other Provider Active Dr. Naman Meredith MD Other Provider Active Dr. Lg Rios MD Other Provider Active Dr. Rachael Weiss MD Other Provider Active Dr. Stevan Rodríguez MD Other Provider Active Dr. Jing Reyes MD Other Provider Active Dr. Efrain Quevedo MD Other Provider Active Dr. Frederick Dick , DO Other Provider Active Dr. Geno Rush MD Other Provider Active Dr. Adarsh Prakash MD Other Provider Active Dr. Alcides Abel MD Attending Provider, Other Pr ovider Active Dr. London Sandra MD Other Provider Active Dr. Chris Royal MD Other Provider Active Dr. Leobardo Calloway MD Other Provider Active Dr. Jorgito Agarwal , DO Other Provider Active Rosalina Herrera SANITARY LANDFILL OPERATOR, SANITARY LANDFILL OPERATOR-C Other Provider Active Team Status: Inactive Member Role Status Dates Dr. Claudine Durán MD Primary Care Provider Active Dr. Etienne Thacker MD Attending Provider, Emergency Pro vider Active Team Status: Inactive Member Role Status Dates Dr. Claudine Durán MD Primary Care Provider Active Dr. Martín Cornejo , DO Emergency Provider Active Dr. Laine Veras MD Admit Provider, Other Provider A ctive Dr. Jasmyn Chan , DO Attending Provider Active Dr. Alisa Mathew MD Other Provider Active Dr. Naman Meredith MD Other Provider Active Dr. Lg Rios MD Other Provider Active Dr. Rachael Weiss MD Other Provider Active Dr. Stevan Rodríguez MD Other Provider Active Dr. Jing Reyes MD Other Provider Active Dr. Efrain Quevedo MD Other Provider Active Dr. Frederick Dick , DO Other Provider Active Dr. Geno Rush MD Other Provider Active Dr. Adarsh Prakash MD Other Provider Active Dr. Alcides Abel MD Other Provider Active Dr. London Sandra MD Other Provider Active Dr. Chris Royal MD Other Provider Active Dr. Leobardo Calloway MD Other Provider Active Dr. Jorgito Agarwal , Other Provider Active Rosalina Herrera SANITARY LANDFILL OPERATOR, SANITARY LANDFILL OPERATOR-C Other Provider Active Team Status: Active Member Role Status Dates Dr. Claudine Durán MD Primary Care Provider Active Dr. Bob Tariq MD Attending Provider Active Dr. Alisa Mathew MD Referring Provider Active Team Status: Active Member Role Status Dates Dr. Claudine Durán MD Primary Care Provider Active Dr. Martín Cornejo , DO Emergency Provider Active Dr. Laine Veras MD Admit Provider, Other Provider A ctive Dr. Jasmyn Chan , DO Referring Provider, Other Pro vider Active Dr. Alisa Mathew MD Other Provider Active Dr. Mathew Orellana , DO Attending Provider Active Team Status: Active Member Role Status Dates Dr. Claudine Durán MD Primary Care Provider Active Dr. Mathew Orellana , DO Attending Provider Active Dr. Jasmyn Chan , DO Referring Provider Active Team Status: Active Member Role Status Dates Dr. Claudine Durán MD Primary Care Provider Active Dr. Martín Cornejo , Emergency Provider Active Dr. Laine Veras MD Admit Provider, Other Provider A ctive Dr. Jasmyn Chan , DO Referring Provider, Other Pro vider Active Dr. Alisa Mathew MD Other Provider Active Dr. Naman Meredith MD Other Provider Active Dr. Lg Rios MD Other Provider Active Dr. Rachael Weiss MD Other Provider Active Dr. Stevan Rodríguez MD Other Provider Active Dr. Jing Reyes MD Other Provider Active Dr. Efrain Quevedo MD Other Provider Active Dr. Frederick Dick , Other Provider Active Dr. Mathew Orellana , Attending Provider Active Team Status: Active Member Role Status Dates Dr. Claudine Durán MD Primary Care Provider, Referr ing Provider Active Dr. Martín Cornejo , Emergency Provider Active Dr. Laine Veras MD Admit Provider, Other Provider A ctive Dr. Jasmyn Chan , DO Other Provider Active Dr. Alisa Mathew MD Other Provider Active Dr. Naman Meredith MD Other Provider Active Dr. Lg Rios MD Other Provider Active Dr. Rachael Weiss MD Other Provider Active Dr. Stevan Rodríguez MD Other Provider Active Dr. Jing Reyes MD Other Provider Active Dr. Efrain Quevedo MD Other Provider Active Dr. Frederick Dick , DO Other Provider Active Dr. Geno Rush MD Other Provider Active Dr. Adarsh Prakash MD Other Provider Active Dr. Alcides Abel MD Attending Provider, Other Pr ovider Active Dr. London Sandra MD Other Provider Active Dr. Chris Royal MD Other Provider Active Dr. Leobardo Calloway MD Other Provider Active Dr. Jorgito Agarwal DO Other Provider Active Rosalina Herrera SANITARY LANDFILL OPERATOR, SANITARY LANDFILL OPERATOR-C Other Provider Active Team Status: Active Member Role Status Dates Dr. Claudine Durán MD Primary Care Provider Active Dr. Edinson Irvin MD Admit Provider, Attending Provid er Active Team Status: Inactive Member Role Status Dates Dr. Claudine Durán MD Primary Care Provider Active Dr. Edinson Irvin MD Attending Provider, Referring Pr ovider Active Team Status: Active Member Role Status Dates Dr. Claudine Durán MD Primary Care Provider Active Dr. Bob Tariq MD Attending Provider Active Dr. Edinson Irvin MD Referring Provider Active Team Status: Inactive Member Role Status Dates Dr. Claudine Durán MD Primary Care Provider Active Dr. Edinson Irvin MD Admit Provider, Attending Provid er Active Railroad Shop Inspector Relationship Specialty Start Date End Date Claudine Durán MD [address] [place], [place] [address]331 PCP - General Internal Medicine 03/02/16 Will Hurley [address] [place] [address] Referring Rheumatology 04/09/18 Ilda Miller, PAULA [address] [place] [address] Scrubber System Attendant 07/27/22 Team Status: Active Member Role Status Dates Dr. Claudine Durán MD Primary Care Provider Active Zaynab NLOEN MD Attending Provider Active Team Status: Inactive Member Role Status Dates Dr. Claudine Durán MD Primary Care Provider Active Zaynab NOLEN MD Attending Provider Active Railroad Shop Inspector Relationship Specialty Start Date End Date Claudine Durán MD [address] [place], [place] [address]181 PCP - General Internal Medicine 03/02/16 Will Hurley [address] [facility] [place] [address] Referring Rheumatology 04/09/18 Ilda Miller RN [address] [place], [place] [id number] Scrubber System Attendant 07/27/22 Team Status: Inactive Member Role Status Dates Dr. Claudine Durán MD Primary Care Provider Active Fadia Pizarro SANITARY LANDFILL OPERATOR, SANITARY LANDFILL OPERATOR-C Attending Provider Active Team Status: Inactive Member Role Status Dates Dr. Claudine Durán MD Primary Care Provider Active Dr. Zaynab Pina MD Attending Provider Active Railroad Shop Inspector Relationship Specialty Start Date End Date Claudine Durán MD [address] [place] [address] PCP - General Internal Medicine 03/02/16 Will Hurley [address] [facility] [place] [address] Referring Rheumatology 04/09/18 Ilda Miller RN [address] [place] [address] Scrubber System Attendant 07/27/22 Railroad Shop Inspector Relationship Specialty Start Date End Date Claudine Durán MD [address] [place] [address] PCP - General Internal Medicine 03/02/16 Will Hurley [address] [facility] [place] [address] Referring Rheumatology 04/09/18 lIda Miller RN [address] [place] [address] Scrubber System Attendant 07/27/22 Railroad Shop Inspector Relationship Specialty Start Date End Date Claudine Durán MD [address] [place] [address] PCP - General Internal Medicine 03/02/16 Will Hurley [address] [facility] [place] [address] Referring Rheumatology 04/09/18 Ilda Miller, PAULA [address] [place] [address] Scrubber System Attendant 07/27/22 Railroad Shop Inspector Relationship Specialty Start Date End Date Claudine Durán MD [address] [place] [address] PCP - General Internal Medicine 03/02/16 Will Hurley [address] [facility] [place] [address] Referring Rheumatology 04/09/18 Ilda Miller, PAULA [address] [place] [address] Scrubber System Attendant 07/27/22 Railroad Shop Inspector Relationship Specialty Start Date End Date Claudine Durán MD [address] [place] [address] PCP - General Internal Medicine 03/02/16 Will Hurley [address] [facility] [place] [address] Referring Rheumatology 04/09/18 Ilda Miller RN [address] [place] [address] Scrubber System Attendant 07/27/22 Railroad Shop Inspector Relationship Specialty Start Date End Date Claudine Durán MD [address] [place] [address] PCP - General Internal Medicine 03/02/16 Will Hurley [address] [facility] [place] [address] Referring Rheumatology 04/09/18 Ilda Miller, PAULA [address] [place] [address] Scrubber System Attendant 07/27/22 Railroad Shop Inspector Relationship Specialty Start Date End Date Claudine Durán MD [address] [place] [address] PCP - General Internal Medicine 03/02/16 Will Hurley [address] [facility] [place] [address] Referring Rheumatology 04/09/18 Ilda Miller RN [address] [place] [address] Scrubber System Attendant 07/27/22 Railroad Shop Inspector Relationship Specialty Start Date End Date Claudine Durán MD [address] [place] [address] PCP - General Internal Medicine 03/02/16 Will Hurley [address] [facility] [place] [address] Referring Rheumatology 04/09/18 Ilda Milelr RN [address] [place] [address] Scrubber System Attendant 07/27/22 Railroad Shop Inspector Relationship Specialty Start Date End Date Claudine Durán MD [address] [place] [address] PCP - General Internal Medicine 03/02/16 Will Hurley [address] [facility] [place] [address] Referring Rheumatology 04/09/18 Ilda Miller, PAULA [address] [place] [address] Scrubber System Attendant 07/27/22 Railroad Shop Inspector Relationship Specialty Start Date End Date Claudine Durán MD [address] [place] [address] PCP - General Internal Medicine 03/02/16 Will Hurley [address] [facility] [place] [address] Referring Rheumatology 04/09/18 Ilda Miller RN [address] [place] [address] Scrubber System Attendant 07/27/22 Railroad Shop Inspector Relationship Specialty Start Date End Date Claudine Durán MD [address] [place] [address] PCP - General Internal Medicine 03/02/16 Will Hurley [address] [facility] [place] [address] Referring Rheumatology 04/09/18 Ilda Miller, PAULA [address] [place] [address] Scrubber System Attendant 07/27/22 Railroad Shop Inspector Relationship Specialty Start Date End Date Claudine Durán MD [address] [place], [place] [address]4931 PCP - General Internal Medicine 03/02/16 Will Hurley [address] [facility] [place] [address] Referring Rheumatology 04/09/18 Ilda Miller, RN [address] [place] [address] Scrubber System Attendant 07/27/22 Railroad Shop Inspector Relationship Specialty Start Date End Date Claudine Durán MD [address] [place] [address] PCP - General Internal Medicine 03/02/16 Will Hurley [address] [facility] [address] Referring Rheumatology 04/09/18 Ilda Miller RN [address] [place] [address] Scrubber System Attendant 07/27/22 Railroad Shop Inspector Relationship Specialty Start Date End Date Claudine Durán MD [address] [place] [address] PCP - General Internal Medicine 03/02/16 Will Hurley [address] [facility] [place] [address] Referring Rheumatology 04/09/18 Ilda Miller, PAULA [address] [place] [address] Scrubber System Attendant 07/27/22 Railroad Shop Inspector Relationship Specialty Start Date End Date Claudine Durán MD [address] [place] [address] PCP - General Internal Medicine 03/02/16 Will Hurley [address] [facility] [place] [address] Referring Rheumatology 04/09/18 Ilda Miller, RN [address] [place] [address] Scrubber System Attendant 07/27/22 Railroad Shop Inspector Relationship Specialty Start Date End Date Claudine Durán MD [address] [place] [address] PCP - General Internal Medicine 03/02/16 Will Hurley [address] [facility] [place] [address] Referring Rheumatology 04/09/18 Ilda Miller RN [address] [place] [address] Scrubber System Attendant 07/27/22 Railroad Shop Inspector Relationship Specialty Start Date End Date Claudine Durán MD [address] [place] [address] PCP - General Internal Medicine 03/02/16 Will Hurley [address] [facility] [place] [address] Referring Rheumatology 04/09/18 Ilda Miller RN [address] [place] [address] Scrubber System Attendant 07/27/22 Railroad Shop Inspector Relationship Specialty Start Date End Date Claudine Durán MD [address] [place] [address] PCP - General Internal Medicine 03/02/16 Will Hurley [address] [facility] [place] [address] Referring Rheumatology 04/09/18 Ilda Miller, RN [address] [place] [address] Scrubber System Attendant 07/27/22 Railroad Shop Inspector Relationship Specialty Start Date End Date Claudine Durán MD [address] [place] [address] PCP - General Internal Medicine 03/02/16 Will Hurley [address] [facility] [place] [address] Referring Rheumatology 04/09/18 Ilda Miller RN [address] [place] [address] Scrubber System Attendant 07/27/22 Railroad Shop Inspector Relationship Specialty Start Date End Date Claudine Durán MD [address] [place], [place] 563431 PCP - General Internal Medicine 03/02/16 Will Hurley [address] [facility] [place], [place] [address] Referring Rheumatology 04/09/18 Ilda Miller RN [address] [place] [address] Scrubber System Attendant 07/27/22 Railroad Shop Inspector Relationship Specialty Start Date End Date Claudine Durán MD [address] [place] [address] PCP - General Internal Medicine 03/02/16 Will Hurley [address] [facility] [place] [address] Referring Rheumatology 04/09/18 Ilda Miller, RN [address] [place] [address] Scrubber System Attendant 07/27/22 Railroad Shop Inspector Relationship Specialty Start Date End Date Claudine Durán MD [address] [place] [address] PCP - General Internal Medicine 03/02/16 Will Hurley [address] [facility] [place] [address] Referring Rheumatology 04/09/18 Ilda Miller RN [address] [place] [address] Scrubber System Attendant 07/27/22 Railroad Shop Inspector Relationship Specialty Start Date End Date Claudine Durán MD [address] [place] [address] PCP - General Internal Medicine 03/02/16 Will Hurley [address] [facility] [place] [address] Referring Rheumatology 04/09/18 Ilda Miller, PAULA [address] [place] [address] Scrubber System Attendant 07/27/22 Railroad Shop Inspector Relationship Specialty Start Date End Date Claudine Durán MD [address] [facility], [place] [address]231 PCP - General Internal Medicine 03/02/16 Will Hurley [address] [facility] [place] [address] Referring Rheumatology 04/09/18 Ilda Miller RN [address] [place], [place] 1762031 Scrubber System Attendant 07/27/22 Railroad Shop Inspector Relationship Specialty Start Date End Date Claudine Durán MD [address] [facility], [place] 639981 PCP - General Internal Medicine 03/02/16 Will Hurley [address] [facility] [place] [place], [place] [address]83 Referring Rheumatology 04/09/18 Ilda Miller RN [address] [place] [address] Scrubber System Attendant 07/27/22 Railroad Shop Inspector Relationship Specialty Start Date End Date Claudine Durán MD [address] [place] [address] PCP - General Internal Medicine 03/02/16 Will Hurley [address] [place] [address] Referring Rheumatology 04/09/18 Lulú aRmos RN [address] [place] [address] Scrubber System Attendant Family Medicine 12/20/21 Railroad Shop Inspector Relationship Specialty Start Date End Date Claudine Durán MD [address] [facility], [place] 109781 PCP - General Internal Medicine 03/02/16 Will Hurley [address] [place] [address] Referring Rheumatology 04/09/18 Ilda Miller, RN [address] [facility] [place] [address] Scrubber System Attendant 07/27/22 Railroad Shop Inspector Relationship Specialty Start Date End Date Claudine Durán MD [address] [place] [address] PCP - General Internal Medicine 03/02/16 Will Hurley [address] [facility] [place] [address] Referring Rheumatology 04/09/18 Ilda Miller RN [address] [place] [address] Scrubber System Attendant 07/27/22 Railroad Shop Inspector Relationship Specialty Start Date End Date Claudine Durán MD [address] [place] [address] PCP - General Internal Medicine 03/02/16 Will Hurley [address] [facility] [place] [address] Referring Rheumatology 04/09/18 Ilda Miller RN [address] [place] [address] Scrubber System Attendant 07/27/22 Railroad Shop Inspector Relationship Specialty Start Date End Date Claudine Durán MD [address] [place] [address] PCP - General Internal Medicine 03/02/16 Will Hurley [address] [facility] [place] [address] Referring Rheumatology 04/09/18 Ilda Miller RN [address] [place] [address] Scrubber System Attendant 07/27/22 Railroad Shop Inspector Relationship Specialty Start Date End Date Claudine Durán MD [address] [place] [address] PCP - General Internal Medicine 03/02/16 Will Hurley [address] [facility] [place] [place] [address] Referring Rheumatology 04/09/18 Ilda Miller RN [address] [place] [address] Scrubber System Attendant 07/27/22 Railroad Shop Inspector Relationship Specialty Start Date End Date Claudine Durán MD [address] [place] [address] PCP - General Internal Medicine 03/02/16 Will Hurley [address] [facility] [place] [address] Referring Rheumatology 04/09/18 Ilda Miller RN [address] [place], [place] 7912931 Scrubber System Attendant 07/27/22 Jimbo Swanson, SUPERVISOR IRRIGATION.INDUSTRIAL CHEMISTRY TEACHER [address] [place] [address] Interpretive Naturalist Internal Medicine 01/28/24 Twyla Cuevas APRN.FINANCIAL ANALYSIS ADVISOR [address] [place] [address] Interpretive Naturalist Internal Medicine 01/28/24 Railroad Shop Inspector Relationship Specialty Start Date End Date Claudine Durán MD [address] [place] [address] PCP - General Internal Medicine 03/02/16 Will Hurley [address] [place] [address] Referring Rheumatology 04/09/18 Ilda Miller, PAULA [address] [place] [address] Scrubber System Attendant 07/27/22 Jimbo Swanson APRN.INDUSTRIAL CHEMISTRY TEACHER [address] [place] [address] Interpretive Naturalist Internal Medicine 01/28/24 Twyla Cuevas APRN.FINANCIAL ANALYSIS ADVISOR [address] [place] [address] Interpretive Naturalist Internal Medicine 01/28/24 Railroad Shop Inspector Relationship Specialty Start Date End Date Claudine Durán MD [address] [place], [place] 462831 PCP - General Internal Medicine 03/02/16 Will Hurley [address] [facility] [address] Referring Rheumatology 04/09/18 Jimbo Swanson APRN.INDUSTRIAL CHEMISTRY TEACHER [address] [place] [address] Interpretive Naturalist Internal Medicine 01/28/24 Twyla Cuevas APRN.FINANCIAL ANALYSIS ADVISOR [address] [place] [address] Interpretive Naturalist Internal Medicine 01/28/24 Railroad Shop Inspector Relationship Specialty Start Date End Date Claudine Durán MD [address] [place] [address] PCP - General Internal Medicine 03/02/16 Will Hurley [address] [place] [address] Referring Rheumatology 04/09/18 Jimbo Swanson SUPERVISOR IRRIGATION.INDUSTRIAL CHEMISTRY TEACHER [address] [place] [address] Interpretive Naturalist Internal Medicine 01/28/24 Twyla Cuevas APRN.FINANCIAL ANALYSIS ADVISOR [address] [place] [address] Interpretive Naturalist Internal Medicine 01/28/24 Railroad Shop Inspector Relationship Specialty Start Date End Date Claudine Durán MD [address] [place] [address] PCP - General Internal Medicine 03/02/16 Will Hurley [address] [place] [address] Referring Rheumatology 04/09/18 Jimbo Swanson, SUPERVISOR IRRIGATION.INDUSTRIAL CHEMISTRY TEACHER [address] [place] [address] Interpretive Naturalist Internal Medicine 01/28/24 Twyla Cuevas APRN.FINANCIAL ANALYSIS ADVISOR [address] [place] [address] Interpretive Naturalist Internal Medicine 01/28/24 Railroad Shop Inspector Relationship Specialty Start Date End Date Claudine Durán MD [address] [place] [address] PCP - General Internal Medicine 03/02/16 Will Hurley [address] [place] [address] Referring Rheumatology 04/09/18 Jimbo Swanson APRN.INDUSTRIAL CHEMISTRY TEACHER [address] [place] [address] Interpretive Naturalist Internal Medicine 01/28/24 Twyla Cuevas APRN.FINANCIAL ANALYSIS ADVISOR [address] [place] [address] Interpretive Naturalist Internal Medicine 01/28/24 Railroad Shop Inspector Relationship Specialty Start Date End Date Claudine Durán MD [address] [place] [address] PCP - General Internal Medicine 03/02/16 Will Hurley [address] [place] [address] Referring Rheumatology 04/09/18 Jimbo Swanson, SUPERVISOR IRRIGATION.INDUSTRIAL CHEMISTRY TEACHER [address] [place] [address] Interpretive Naturalist Internal Medicine 01/28/24 Twyla Cuevas SUPERVISOR IRRIGATION.FINANCIAL ANALYSIS ADVISOR [address] [place], [place] 934061 Interpretive Naturalist Internal Medicine 01/28/24 Railroad Shop Inspector Relationship Specialty Start Date End Date Claudine Durán MD [address] [place], [place] 567841 PCP - General Internal Medicine 03/02/16 Will Hurley [address] [facility] [address] Referring Rheumatology 04/09/18 Jimbo Swanson, SUPERVISOR IRRIGATION.INDUSTRIAL CHEMISTRY TEACHER [address] [place] [address] Interpretive Naturalist Internal Medicine 01/28/24 Twyla Cuevas SUPERVISOR IRRIGATION.FINANCIAL ANALYSIS ADVISOR [address] [place] [address] [facility] Internal Medicine 01/28/24 Railroad Shop Inspector Relationship Specialty Start Date End Date Claudine Durán MD [address] [place] [address] PCP - General Internal Medicine 03/02/16 Will Hurley [address] [facility] [place] [address] Referring Rheumatology 04/09/18 Jimbo Swanson, SUPERVISOR IRRIGATION.INDUSTRIAL CHEMISTRY TEACHER [address] [place] [address] Interpretive Naturalist Internal Medicine 01/28/24 Twyla Cuevas SUPERVISOR IRRIGATION.FINANCIAL ANALYSIS ADVISOR [address] [place] [address] [facility] Internal Medicine 01/28/24 Railroad Shop Inspector Relationship Specialty Start Date End Date Claudine Durán MD [address] [place] [address] PCP - General Internal Medicine 03/02/16 Will Hurley [address] [place] [address] Referring Rheumatology 04/09/18 Jimbo Swanson, CONINE.INDUSTRIAL CHEMISTRY TEACHER [address] [place] [address] Interpretive Naturalist Internal Medicine 01/28/24 Twyla Cuevas APRN.FINANCIAL ANALYSIS ADVISOR [address] [place] [address] Interpretive Naturalist Internal Medicine 01/28/24 Railroad Shop Inspector Relationship Specialty Start Date End Date Claudine Durán MD [address] [place] [address] PCP - General Internal Medicine 03/02/16 Will Hurley [address] [place] [address] Referring Rheumatology 04/09/18 Jimbo Swanson, CONNIE.INDUSTRIAL CHEMISTRY TEACHER [address] [place] [address] Interpretive Naturalist Internal Medicine 01/28/24 Twyla Cuevas, SUPERVISOR IRRIGATION.FINANCIAL ANALYSIS ADVISOR [address] [place] [address] Interpretive Naturalist Internal Medicine 01/28/24 Railroad Shop Inspector Relationship Specialty Start Date End Date Claudine Durán MD [address] [place] [address] PCP - General Internal Medicine 03/02/16 Will Hurley [address] [place] [address] Referring Rheumatology 04/09/18 Jimbo Swanson, SUPERVISOR IRRIGATION.INDUSTRIAL CHEMISTRY TEACHER [address] [place] [address] Interpretive Naturalist Internal Medicine 01/28/24 Twyla Cuevas SUPERVISOR IRRIGATION.FINANCIAL ANALYSIS ADVISOR [address] [place] [address] Interpretive Naturalist Internal Medicine 01/28/24 Railroad Shop Inspector Relationship Specialty Start Date End Date Claudine Durán MD [address] [place] [address] PCP - General Internal Medicine 03/02/16 Will Hurley [address] [place] [address] Referring Rheumatology 04/09/18 Jimbo Swanson, SUPERVISOR IRRIGATION.INDUSTRIAL CHEMISTRY TEACHER [address] [place] [address] [facility] Internal Medicine 01/28/24 Twyla Cuevas, SUPERVISOR IRRIGATION.FINANCIAL ANALYSIS ADVISOR [address] [place] [address] Interpretive Naturalist Internal Medicine 01/28/24 Railroad Shop Inspector Relationship Specialty Start Date End Date Claudine Durán MD [address] [place] [address] PCP - General Internal Medicine 03/02/16 Will Hurley [address] [facility] [place] [address] Referring Rheumatology 04/09/18 Jimbo Swanson, SUPERVISOR IRRIGATION.INDUSTRIAL CHEMISTRY TEACHER [address] [place] [address] [facility] Internal Medicine 01/28/24 Twyla Cuevas APRN.FINANCIAL ANALYSIS ADVISOR [address] [place] [address] [facility] Internal Medicine 01/28/24 Railroad Shop Inspector Relationship Specialty Start Date End Date Claudine Durán MD [address] [place] [address] PCP - General Internal Medicine 03/02/16 Will Hurley [address] [place], [place] [address] Referring Rheumatology 04/09/18 Jimbo Swanson, SUPERVISOR IRRIGATION.INDUSTRIAL CHEMISTRY TEACHER [address] [place] [address] [facility] Internal Medicine 01/28/24 Twyla Cuevas SUPERVISOR IRRIGATION.FINANCIAL ANALYSIS ADVISOR [address] [place] [address] [facility] Internal Medicine 01/28/24 Railroad Shop Inspector Relationship Specialty Start Date End Date Claudine Durán MD [address] [place] [address] PCP - General Internal Medicine 03/02/16 Will Hurley [address] [facility] [place] [address] Referring Rheumatology 04/09/18 Jimbo Swanson, SUPERVISOR IRRIGATION.INDUSTRIAL CHEMISTRY TEACHER [address] [place] [address] Interpretive Naturalist Internal Medicine 01/28/24 Twyla Cuevas APRN.FINANCIAL ANALYSIS ADVISOR [address] [place] [address] Interpretive Naturalist Internal Medicine 01/28/24 Railroad Shop Inspector Relationship Specialty Start Date End Date Claudine Durán MD [address] [place] [address] PCP - General Internal Medicine 03/02/16 Will Hurley [address] [facility] [place], [place] [address] Referring Rheumatology 04/09/18 Jimbo Swanson APRN.INDUSTRIAL CHEMISTRY TEACHER [address] [place] [address] Interpretive Naturalist Internal Medicine 01/28/24 Twyla Cuevas APRN.FINANCIAL ANALYSIS ADVISOR [address] [place] [address] Interpretive Naturalist Internal Medicine 01/28/24 Railroad Shop Inspector Relationship Specialty Start Date End Date Claudine Durán MD [address] [place] [address] PCP - General Internal Medicine 03/02/16 Will Hurley [address] [facility] [place] [address] Referring Rheumatology 04/09/18 Jimbo Swanson, CONNIE.INDUSTRIAL CHEMISTRY TEACHER [address] [place] [address] [facility] Internal Medicine 01/28/24 Twyla Cuevas APRN.FINANCIAL ANALYSIS ADVISOR [address] [place], [place] [address] [facility] Internal Medicine 01/28/24 Bartolome Francis MD [address] [place], [place] [id number] Surgeon Cardiac Surg 04/02/24 Juvencio Saeed MD [address] [place], [place] [id number] Primary Staff Physician Cardiology 04/02/24 Railroad Shop Inspector Relationship Specialty Start Date End Date Claudine Durán MD [address] [place] [address] PCP - General Internal Medicine 03/02/16 Will Hurley [address] [place] [address] Referring Rheumatology 04/09/18 Jimbo Swanson APRN.INDUSTRIAL CHEMISTRY TEACHER [address] [place] [address] [facility] Internal Medicine 01/28/24 Twyla Cuevas SUPERVISOR IRRIGATION.FINANCIAL ANALYSIS ADVISOR [address] [place] [address] [facility] Internal Medicine 01/28/24 Bartolome Francis MD [address] [place], [place] [id number] Surgeon Cardiac Surg 04/02/24 Juvencio Saeed MD [address] [place], [place] [id number] Primary Staff Physician Cardiology 04/02/24 Railroad Shop Inspector Relationship Specialty Start Date End Date Claudine Durán MD [address] [place] [address] PCP - General Internal Medicine 03/02/16 Will Hurley [address] [place] [address] Referring Rheumatology 04/09/18 Jimbo Swanson APRN.INDUSTRIAL CHEMISTRY TEACHER [address] [place] [address] Interpretive Naturalist Internal Medicine 01/28/24 Twyla Cuevas APRN.FINANCIAL ANALYSIS ADVISOR [address] [place] [id number] Interpretive Naturalist Internal Medicine 01/28/24 Bartolome Francis MD [address] [place], [place] 1784195 Surgeon Cardiac Surg 04/02/24 Juvencio Saeed MD [address] [place] [address] Primary Staff Physician Cardiology 04/02/24 Railroad Shop Inspector Relationship Specialty Start Date End Date Claudine Durán MD [address] [place] [address] PCP - General Internal Medicine 03/02/16 Will Hurley [address] [place], [place] 077663 Referring Rheumatology 04/09/18 Jimbo Swanson, SUPERVISOR IRRIGATION.INDUSTRIAL CHEMISTRY TEACHER [address] [place] [address] Interpretive Naturalist Internal Medicine 01/28/24 Twyla Cuevas SUPERVISOR IRRIGATION.FINANCIAL ANALYSIS ADVISOR [address] [place] [address] Interpretive Naturalist Internal Medicine 01/28/24 Bartolome Francis MD [address] [facility] [place] [address] Surgeon Cardiac Surg 04/02/24 Juvencio Saeed MD [address] [facility] [place], [place] 2363195 Primary Staff Physician Cardiology 04/02/24 Railroad Shop Inspector Relationship Specialty Start Date End Date Claudine Durán MD [address] [place] [address] PCP - General Internal Medicine 03/02/16 Will Hurley [address] [place] [address] Referring Rheumatology 04/09/18 Jimbo Swanson, SUPERVISOR IRRIGATION.INDUSTRIAL CHEMISTRY TEACHER [address] [place] [address] Interpretive Naturalist Internal Medicine 01/28/24 Twyla Cuevas SUPERVISOR IRRIGATION.FINANCIAL ANALYSIS ADVISOR [address] [place] [address] [facility] Internal Medicine 01/28/24 Bartolome Francis MD [address] [place], [place] 5504295 Surgeon Cardiac Surg 04/02/24 Juvencio Saeed MD [address] [place] [address] Primary Staff Physician Cardiology 04/02/24 Pili Benitez, senior rd engineerScrubber System Attendant 04/11/24 Railroad Shop Inspector Relationship Specialty Start Date End Date Claudine Durán MD [address] [place], [place] 845271 PCP - General Internal Medicine 03/02/16 Will Hurley [address] [place] [address] Referring Rheumatology 04/09/18 Jimbo Swanson APRN.INDUSTRIAL CHEMISTRY TEACHER [address] [place] [id number] Interpretive Naturalist Internal Medicine 01/28/24 Twyla Cuevas APRN.FINANCIAL ANALYSIS ADVISOR [address] [place] [address] [id number] Interpretive Naturalist Internal Medicine 01/28/24 Bartolome Francis MD [address] [place] [address] Surgeon Cardiac Surg 04/02/24 Juvencio Saeed MD [address] [facility] [place] [address] Primary Staff Physician Cardiology 04/02/24 Pili Benitez, senior rd engineerScrubber System Attendant 04/11/24 Railroad Shop Inspector Relationship Specialty Start Date End Date Claudine Durán MD [address] [place], [place] [id number] PCP - General Internal Medicine 03/02/16 Will Hurley [address] [place], [place] 26343333 Referring Rheumatology 04/09/18 Jimbo Swanson, SUPERVISOR IRRIGATION.INDUSTRIAL CHEMISTRY TEACHER [address] [place], [place] 947921 Interpretive Naturalist Internal Medicine 01/28/24 Twyla Cuevas APRN.FINANCIAL ANALYSIS ADVISOR [address] [place], [place] [id number] [facility] Internal Medicine 01/28/24 Bartolome Francis MD [address] [place], [place] 3606795 Surgeon Cardiac Surg 04/02/24 Juvencio Saeed MD [address] [place] [place], [place] 2389795 Primary Staff Physician Cardiology 04/02/24 Pili Benitez, senior rd engineerScrubber System Attendant 04/11/24 Railroad Shop Inspector Relationship Specialty Start Date End Date Claudine Durán MD [address] [place], [place] 219841 PCP - General Internal Medicine 03/02/16 Will Hurley [address] [facility] [place] [address] Referring Rheumatology 04/09/18 Jimbo Swanson, CONNIE.INDUSTRIAL CHEMISTRY TEACHER [address] [place] [address] [facility] Internal Medicine 01/28/24 Twyla Cuevas APRN.FINANCIAL ANALYSIS ADVISOR [address] [place] [address] Interpretive Naturalist Internal Medicine 01/28/24 Bartolome Franics MD [address] [place], [place] 4370595 Surgeon Cardiac Surg 04/02/24 Juvencio Saeed MD [address] [place], [place] 9941895 Primary Staff Physician Cardiology 04/02/24 Pili Benitez, senior rd engineerScrubber System Attendant 04/11/24 Railroad Shop Inspector Relationship Specialty Start Date End Date Claudine Durán MD [address] [place] [address] PCP - General Internal Medicine 03/02/16 Will Hurley [address] [place], [place] 246063 Referring Rheumatology 04/09/18 Jimbo Swanson APRN.INDUSTRIAL CHEMISTRY TEACHER [address] [place] [address] Interpretive Naturalist Internal Medicine 01/28/24 Twyla Cuevas APRN.FINANCIAL ANALYSIS ADVISOR [address] [place] [address] Interpretive Naturalist Internal Medicine 01/28/24 Bartolome Francis MD [address] [place], [place] 0025595 Surgeon Cardiac Surg 04/02/24 Juvencio Saeed MD [address] [place], [place] 7040695 Primary Staff Physician Cardiology 04/02/24 Pili Benitez, senior rd engineerScrubber System Attendant 04/11/24 Railroad Shop Inspector Relationship Specialty Start Date End Date Claudine Durán MD [address] [place], [place] 396001 PCP - General Internal Medicine 03/02/16 Will Hurley [address] [place] [address] Referring Rheumatology 04/09/18 Jimbo Swanson APRN.INDUSTRIAL CHEMISTRY TEACHER [address] [place], [place] 407641 Interpretive Naturalist Internal Medicine 01/28/24 Twyla Cuevas APRN.FINANCIAL ANALYSIS ADVISOR [address] [place] [address] Interpretive Naturalist Internal Medicine 01/28/24 Bartolome Francis MD [address] [place] [place], [place] 9012495 Surgeon Cardiac Surg 04/02/24 Juvencio Saeed MD [address] [place], [place] 8700595 Primary Staff Physician Cardiology 04/02/24 Pili Benitez, senior rd engineerScrubber System Attendant 04/11/24 Railroad Shop Inspector Relationship Specialty Start Date End Date Claudine Durán MD [address] [place] [address] PCP - General Internal Medicine 03/02/16 Will Hurley [address] [place] [address] Referring Rheumatology 04/09/18 Jimbo Swanson APRN.INDUSTRIAL CHEMISTRY TEACHER [address] [facility] [place] 517751 Interpretive Naturalist Internal Medicine 01/28/24 Twyla Cuevas APRN.FINANCIAL ANALYSIS ADVISOR [address] [facility] [address] [facility] Internal Medicine 01/28/24 Bartolome Francis MD [address] [place] [address] Surgeon Cardiac Surg 04/02/24 Juvencio Saeed MD [address] [place] [address] Primary Staff Physician Cardiology 04/02/24 Pili Benitez, senior rd engineerScrubber System Attendant 04/11/24 Railroad Shop Inspector Relationship Specialty Start Date End Date Claudine Durán MD [address] [facility] [address] PCP - General Internal Medicine 03/02/16 Will Hurley [address] [place] [address] Referring Rheumatology 04/09/18 Jimbo Swanson APRN.INDUSTRIAL CHEMISTRY TEACHER [address] [facility] [address] [facility] Internal Medicine 01/28/24 Twyla Cuevas APRN.FINANCIAL ANALYSIS ADVISOR [address] [facility] [address] Interpretive Naturalist Internal Medicine 01/28/24 Bartolome Francis MD [address] [place], [place] 7699495 Surgeon Cardiac Surg 04/02/24 Juvencio Saeed MD [address] [place], [place] 7332495 Primary Staff Physician Cardiology 04/02/24 Pili Benitez, senior rd engineerScrubber System Attendant 04/11/24 Railroad Shop Inspector Relationship Specialty Start Date End Date Claudine Durán MD [address] [place], [place] 530431 PCP - General Internal Medicine 03/02/16 Will Hurley [address] [place], [place] 556563 Referring Rheumatology 04/09/18 Jimbo Swanson, SUPERVISOR IRRIGATION.INDUSTRIAL CHEMISTRY TEACHER [address] [place] [address] [facility] Internal Medicine 01/28/24 Twyla Cuevas, SUPERVISOR IRRIGATION.FINANCIAL ANALYSIS ADVISOR [address] [place] [address] Interpretive Naturalist Internal Medicine 01/28/24 Bartolome Francis MD [address] [place] [address] Surgeon Cardiac Surg 04/02/24 Juvencio Saeed MD [address] [place], [place] 2010795 Primary Staff Physician Cardiology 04/02/24 Pili Benitez, senior rd engineerScrubber System Attendant 04/11/24 Railroad Shop Inspector Relationship Specialty Start Date End Date Claudine Durán MD [address] [place], [place] 831501 PCP - General Internal Medicine 03/02/16 Will Hurley [address] [facility] [place] 0[address]223 Referring Rheumatology 04/09/18 Jimbo Swanson, SUPERVISOR IRRIGATION.INDUSTRIAL CHEMISTRY TEACHER [address] [place], [place] 141471 Interpretive Naturalist Internal Medicine 01/28/24 Twyla Cuevas, SUPERVISOR IRRIGATION.FINANCIAL ANALYSIS ADVISOR [address] [place], [place] 764651 Interpretive Naturalist Internal Medicine 01/28/24 Bartolome Francis MD [address] [place] [place], [place] 9999695 Surgeon Cardiac Surg 04/02/24 Juvencio Saeed MD [address] [place] [address] Primary Staff Physician Cardiology 04/02/24 Pili Benitez, senior rd engineerScrubber System Attendant 04/11/24 Pili Benitez, senior rd engineer Cement Worker 05/05/24 Railroad Shop Inspector Relationship Specialty Start Date End Date Claudine Durán MD [address] [place], [place] 695721 PCP - General Internal Medicine 03/02/16 Will Hurley [address] [facility] [place] [address] Referring Rheumatology 04/09/18 Jimbo Swanson APRN.INDUSTRIAL CHEMISTRY TEACHER [address] [facility] [address] Interpretive Naturalist Internal Medicine 01/28/24 Twyla Cuevas APRN.FINANCIAL ANALYSIS ADVISOR [address] [facility] [address] [facility] Internal Medicine 01/28/24 Bartolome Francis MD [address] [place] [place], [place] 6724395 Surgeon Cardiac Surg 04/02/24 Juvencio Saeed MD [address] [facility] [place], [place] 5580295 Primary Staff Physician Cardiology 04/02/24 Pili Benitez, senior rd engineerScrubber System Attendant 04/11/24 Pili Benitez, senior rd engineer Cement Worker 05/05/24 Railroad Shop Inspector Relationship Specialty Start Date End Date Claudine Durán MD [address] [facility] [place] [address] PCP - General Internal Medicine 03/02/16 Will Hurley [address] [place] [address] Referring Rheumatology 04/09/18 Jimbo Swanson APRN.INDUSTRIAL CHEMISTRY TEACHER [address] [facility] [place] [address] [facility] Internal Medicine 01/28/24 Twyla Cuevas APRN.FINANCIAL ANALYSIS ADVISOR [address] [facility] [place] [address] [facility] Internal Medicine 01/28/24 Bartolome Francis MD [address] [place] [address] Surgeon Cardiac Surg 04/02/24 Juvencio Saeed MD [address] [place], [place] 1375195 Primary Staff Physician Cardiology 04/02/24 Pili Benitez, senior rd engineerScrubber System Attendant 04/11/24 Railroad Shop Inspector Relationship Specialty Start Date End Date Claudine Durán MD [address] [place], [place] 893871 PCP - General Internal Medicine 03/02/16 Will Hurley [address] [place], [place] 893293 Referring Rheumatology 04/09/18 Jimbo Swanson, SUPERVISOR IRRIGATION.INDUSTRIAL CHEMISTRY TEACHER [address] [place], [place] 428691 Interpretive Naturalist Internal Medicine 01/28/24 Twyla Cuevas SUPERVISOR IRRIGATION.FINANCIAL ANALYSIS ADVISOR [address] [place] [address] Interpretive Naturalist Internal Medicine 01/28/24 05/09/24 Bartolome Francis MD [address] [place] [address] Surgeon Cardiac Surg 04/02/24 Juvencio Saeed MD [address] [place], [place] 1290395 Primary Staff Physician Cardiology 04/02/24 Pili Benitez, senior rd engineerScrubber System Attendant 04/11/24 Pili Benitez, senior rd engineer Cement Worker 05/05/24 Railroad Shop Inspector Relationship Specialty Start Date End Date Claudine Durán MD [address] [facility] 296391 PCP - General Internal Medicine 03/02/16 Will Hurley [address] [facility] 870323 Referring Rheumatology 04/09/18 Jimbo Swanson, SUPERVISOR IRRIGATION.INDUSTRIAL CHEMISTRY TEACHER [address] [place], [place] 367271 Interpretive Naturalist Internal Medicine 01/28/24 Bartolome Francis MD [address] [place], [place] 6274695 Surgeon Cardiac Surg 04/02/24 Juvencio Saeed MD [address] [place] [address] Primary Staff Physician Cardiology 04/02/24 Pili Benitez, senior rd engineerScrubber System Attendant 04/11/24 Pili Benitez, senior rd engineer Cement Worker 05/05/24 Railroad Shop Inspector Relationship Specialty Start Date End Date Claudine Durán MD [address] [facility] [place] [address] PCP - General Internal Medicine 03/02/16 Will Hurley [address] [place], [place] 813633 Referring Rheumatology 04/09/18 Jimbo Swanson, SUPERVISOR IRRIGATION.INDUSTRIAL CHEMISTRY TEACHER [address] [facility] 871071 Interpretive Naturalist Internal Medicine 01/28/24 Bartolome Francis MD [address] [place] [address] Surgeon Cardiac Surg 04/02/24 Juvencio Saeed MD [address] [place] [address] Primary Staff Physician Cardiology 04/02/24 Pili Benitez, senior rd engineerScrubber System Attendant 04/11/24 Pili Benitez, senior rd engineer Cement Worker 05/05/24 Twyla Cuevas, SUPERVISOR IRRIGATION.FINANCIAL ANALYSIS ADVISOR [address] [place], [place] 609931 [facility] Internal Medicine 05/13/24 Railroad Shop Inspector Relationship Specialty Start Date End Date Claudine Durán MD [address] [place] [address] PCP - General Internal Medicine 03/02/16 Will Hurley [address] [place], [place] 226123 Referring Rheumatology 04/09/18 Jimbo Swanson APRN.INDUSTRIAL CHEMISTRY TEACHER [address] [place] [address] [facility] Internal Medicine 01/28/24 Bartolome Francis MD [address] [place] [address] Surgeon Cardiac Surg 04/02/24 Juvencio Saeed MD [address] [place] [address] Primary Staff Physician Cardiology 04/02/24 Pili Benitez, senior rd engineerScrubber System Attendant 04/11/24 Pili Benitez, senior rd engineer Cement Worker 05/05/24 Twyla Cuevas, SUPERVISOR IRRIGATION.FINANCIAL ANALYSIS ADVISOR [address] [place] [address] Interpretive Naturalist Internal Medicine 05/13/24 Railroad Shop Inspector Relationship Specialty Start Date End Date Claudine Durán MD [address] [place] [address] PCP - General Internal Medicine 03/02/16 Will Hurley [address] [place] [address] Referring Rheumatology 04/09/18 Jimbo Swanson APRN.INDUSTRIAL CHEMISTRY TEACHER [address] [place] [address] Interpretive Naturalist Internal Medicine 01/28/24 Bartolome Francis MD [address] [place] [address] Surgeon Cardiac Surg 04/02/24 Juvencio Saeed MD [address] [place] [address] Primary Staff Physician Cardiology 04/02/24 Pili Benitez, senior rd engineerScrubber System Attendant 04/11/24 Pili Benitez, senior rd engineer Cement Worker 05/05/24 Twyla Cuevas, SUPERVISOR IRRIGATION.FINANCIAL ANALYSIS ADVISOR [address] [place] [address] Interpretive Naturalist Internal Medicine 05/13/24 Railroad Shop Inspector Relationship Specialty Start Date End Date Claudine Durán MD [address] [place] [address] PCP - General Internal Medicine 03/02/16 Will Hurley [address] [facility] [place] [address] Referring Rheumatology 04/09/18 Jimbo Swanson, CONNIE.INDUSTRIAL CHEMISTRY TEACHER [address] [place] [address] Interpretive Naturalist Internal Medicine 01/28/24 Bartolome Francis MD [address] [place], [place] 2262395 Surgeon Cardiac Surg 04/02/24 Juvencio Saeed MD [address] [place], [place] 8742895 Primary Staff Physician Cardiology 04/02/24 Pili Benitez, senior rd engineerScrubber System Attendant 04/11/24 Pili Benitez, senior rd engineer Cement Worker 05/05/24 Twyla Cuevas, SUPERVISOR IRRIGATION.FINANCIAL ANALYSIS ADVISOR [address] [place] [address] Interpretive Naturalist Internal Medicine 05/13/24 Team Status: Active Member Role Status Dates Dr. Claudine Durán MD Primary Care Provider Active Team Status: Inactive Member Role Status Dates Dr. Claudine Durán MD Primary Care Provider Active Start: May 28, 2024 End: May 28, 2024 CHRISTOPHE LOWRY Attending Provider Active Start: [facility] 2024 End: May 28, 2024 CHRISTOPHE LOWRY Referring Provider Active Start: [facility] 2024 End: May 28, 2024 Team Status: Active Member Role Status Dates Dr. Claudine Durán MD Primary Care Provider Active Start: 2024 CHRISTOPHE LOWRY Attending Provider Active Start: [facility] 2024 CHRISTOPHE LOWRY Referring Provider Active Start: [facility] 2024 Railroad Shop Inspector Relationship Specialty Start Date End Date Claudine Durán MD [address] [place], [place] 374251 PCP - General Internal Medicine 03/02/16 Will Hurley [address] [facility] [place] 9[address]253 Referring Rheumatology 04/09/18 Jimbo Swanson APRN.INDUSTRIAL CHEMISTRY TEACHER [address] [place], [place] 332141 Interpretive Naturalist Internal Medicine 01/28/24 Bartolome Francis MD [address] [place], [place] 6680295 Surgeon Cardiac Surg 04/02/24 Juvencio Saeed MD [address] [place], [place] 9986995 Primary Staff Physician Cardiology 04/02/24 Pili Benitez, senior rd engineerScrubber System Attendant 04/11/24 Twyla Cuevas SUPERVISOR IRRIGATION.FINANCIAL ANALYSIS ADVISOR [address] [place], [place] 893451 Interpretive Naturalist Internal Medicine 05/13/24 Railroad Shop Inspector Relationship Specialty Start Date End Date Claudine Durán MD [address] [facility] [place] 487841 PCP - General Internal Medicine 03/02/16 Will Hurley [address] [facility] [place] [place] [address] Referring Rheumatology 04/09/18 Jimbo Swanson, SUPERVISOR IRRIGATION.INDUSTRIAL CHEMISTRY TEACHER [address] [place] [address] Interpretive Naturalist Internal Medicine 01/28/24 Bartolome Francis MD [address] [place], [place] 9426995 Surgeon Cardiac Surg 04/02/24 Juevncio Saeed MD [address] [place], [place] 4479695 Primary Staff Physician Cardiology 04/02/24 Pili Benitez, senior rd engineerScrubber System Attendant 04/11/24 Twyla Cuevas SUPERVISOR IRRIGATION.FINANCIAL ANALYSIS ADVISOR [address] [place], [place] 664031 [facility] Internal Medicine 05/13/24 Railroad Shop Inspector Relationship Specialty Start Date End Date Claudine Durán MD [address] [place], [place] 689781 PCP - General Internal Medicine 03/02/16 Will Hurely [address] [place], [place] 877093 Referring Rheumatology 04/09/18 Jimbo Swanson, SUPERVISOR IRRIGATION.INDUSTRIAL CHEMISTRY TEACHER [address] [place] [address] Interpretive Naturalist Internal Medicine 01/28/24 Bartolome Francis MD [address] [place] [address] Surgeon Cardiac Surg 04/02/24 Juvencio Saeed MD [address] [place] [address] Primary Staff Physician Cardiology 04/02/24 Pili Benitez, senior rd engineerScrubber System Attendant 04/11/24 Twyla Cuevas APRN.FINANCIAL ANALYSIS ADVISOR [address] [place] [address] Interpretive Naturalist Internal Medicine 05/13/24 Railroad Shop Inspector Relationship Specialty Start Date End Date Claudine Durán MD [address] [place] [address] PCP - General Internal Medicine 03/02/16 Will Hurley [address] [place] [address] Referring Rheumatology 04/09/18 Jimbo Swanson APRN.INDUSTRIAL CHEMISTRY TEACHER [address] [place] [address] Interpretive Naturalist Internal Medicine 01/28/24 Bartolome Francis MD [address] [place] [address] Surgeon Cardiac Surg 04/02/24 Juvencio Saeed MD [address] [place] [address] Primary Staff Physician Cardiology 04/02/24 Pili Benitez, senior rd engineerScrubber System Attendant 04/11/24 Twyla Cuevas SUPERVISOR IRRIGATION.FINANCIAL ANALYSIS ADVISOR [address] [place] [address] Interpretive Naturalist Internal Medicine 05/13/24 Railroad Shop Inspector Relationship Specialty Start Date End Date Claudine Durán MD [address] [place] [address] PCP - General Internal Medicine 03/02/16 Will Hurley [address] [facility] [place] [address] Referring Rheumatology 04/09/18 Jmibo Swanson APRN.INDUSTRIAL CHEMISTRY TEACHER [address] [facility] [place] [address] Interpretive Naturalist Internal Medicine 01/28/24 Bartolome Francis MD [address] [place], [place] 9342195 Surgeon Cardiac Surg 04/02/24 Juvencio Saeed MD [address] [place], [place] 5959395 Primary Staff Physician Cardiology 04/02/24 Pili Benitez, senior rd engineerScrubber System Attendant 04/11/24 Twyla Cuevas APRN.FINANCIAL ANALYSIS ADVISOR [address] [place] [address] Interpretive Naturalist Internal Medicine 05/13/24 Team Status: Inactive Member Role Status Dates Dr. Claudine Durán MD Primary Care Provider Active Start: June 18, 2024 End: June 18, 2024 CHRISTOPHE LOWRY Attending Provider Active Start: [facility] 2024 End: June 18, 2024 CHRISTOPHE LOWRY Referring Provider Active Start: [facility] 2024 End: June 18, 2024 Team Status: Inactive Member Role Status Dates Dr. Claudine Durán MD Primary Care Provider Active Start: June 20, 2024 End: June 20, 2024 Dr. Claudine Durán MD Referring Provider Active Start: June 20, 2024 End: June 20, 2024 Dr. Diaz Puckett MD Attending Provider Active Start: June 20, 2024 End: June 20, 2024 Team Status: Inactive Member Role Status Dates Dr. Claudine Durán MD Primary Care Provider Active Start: July 18, 2024 End: July 19, 2024 CHRISTOPHE LOWRY Attending Provider Active Start: Sandy mcginnis 2024 End: July 19, 2024 CHRISTOPHE LOWRY Referring Provider Active Start: Sandy mcginnis 2024 End: July 19, 2024 Railroad Shop Inspector Relationship Specialty Start Date End Date Claudine Durán MD [address] [facility] [address] PCP - General Internal Medicine 03/02/16 Will Hurley [address] [facility] [place] [address] Referring Rheumatology 04/09/18 Bartolome Francis MD [address] [place] [place], [place] 8983995 Surgeon Cardiac Surg 04/02/24 Juvencio Saeed MD [address] [place] [place], [place] 2739295 Primary Staff Physician Cardiology 04/02/24 Twyla Cuevas, SUPERVISOR IRRIGATION.FINANCIAL ANALYSIS ADVISOR [address] [facility] [place] [address] Interpretive Naturalist Internal Medicine 05/13/24 Jimbo Swanson, SUPERVISOR IRRIGATION.INDUSTRIAL CHEMISTRY TEACHER [address] [facility] 787551 Interpretive Naturalist Internal Medicine 07/09/24 Railroad Shop Inspector Relationship Specialty Start Date End Date Claudine Durán MD [address] [facility] 372101 PCP - General Internal Medicine 03/02/16 Will Hurley [address] [facility] [place] [address] Referring Rheumatology 04/09/18 Bartolome Francis MD [address] [place] [address] Surgeon Cardiac Surg 04/02/24 Juvencio Saeed MD [address] [place], [place] 4287395 Primary Staff Physician Cardiology 04/02/24 Twyla Cuevas APRN.FINANCIAL ANALYSIS ADVISOR [address] [place] [address] Interpretive Naturalist Internal Medicine 05/13/24 Jimbo Swanson APRN.INDUSTRIAL CHEMISTRY TEACHER [address] [place] [address] Interpretive Naturalist Internal Medicine 07/09/24 Railroad Shop Inspector Relationship Specialty Start Date End Date Claudine Durán MD [address] [place] [address] PCP - General Internal Medicine 03/02/16 Will Hurley [address] [facility] [place] [address] Referring Rheumatology 04/09/18 Bartolome Francis MD [address] [place] [address] Surgeon Cardiac Surg 04/02/24 Juvencio Saeed MD [address] [place] [address] Primary Staff Physician Cardiology 04/02/24 Twyla Cuevas APRN.FINANCIAL ANALYSIS ADVISOR [address] [place] [address] Interpretive Naturalist Internal Medicine 05/13/24 Jimbo Swanson APRN.INDUSTRIAL CHEMISTRY TEACHER [address] [place] [address] Interpretive Naturalist Internal Medicine 07/09/24 Railroad Shop Inspector Relationship Specialty Start Date End Date Claudine Durán MD [address] [place] [address] PCP - General Internal Medicine 03/02/16 Will Hurley [address] [place] [address] Referring Rheumatology 04/09/18 Bartolome Francis MD [address] [place], [place] 4515795 Surgeon Cardiac Surg 04/02/24 Juvencio Saeed MD [address] [place] [address] Primary Staff Physician Cardiology 04/02/24 Twyla Cuevas APRN.FINANCIAL ANALYSIS ADVISOR [address] [place] [address] Interpretive Naturalist Internal Medicine 05/13/24 Jimbo Swanson APRN.INDUSTRIAL CHEMISTRY TEACHER [address] [place] [address] Interpretive Naturalist Internal Medicine 07/09/24 Railroad Shop Inspector Relationship Specialty Start Date End Date Claudine Durán MD [address] [place] [address] PCP - General Internal Medicine 03/02/16 Will Hurley [address] [facility] [place] [address] Referring Rheumatology 04/09/18 Bartolome Francis MD [address] [place], [place] [id number] Surgeon Cardiac Surg 04/02/24 Juvencio Saeed MD [address] [place], [place] [id number] Primary Staff Physician Cardiology 04/02/24 Twyla Cuevas APRN.FINANCIAL ANALYSIS ADVISOR [address] [place] [address] Interpretive Naturalist Internal Medicine 05/13/24 Jimbo Swanson APRN.INDUSTRIAL CHEMISTRY TEACHER [address] [place], [place] [address] Interpretive Naturalist Internal Medicine 07/09/24 Team Status: Active Member Role/Relationship Status Dates Dr. Claudine Durán MD Primary Care Provider Active Team Status: Inactive Member Role/Relationship Status Dates Dr. Claudine Durán MD Primary Care Provider Active Start: May 28, 2024 End: May 28, 2024 CHRISTOPHE LOWRY Attending Provider Active Start: [facility] 2024 End: May 28, 2024 CHRISTOPHE LOWRY Referring Provider Active Start: [facility] 2024 End: May 28, 2024 Team Status: Inactive Member Role/Relationship Status Dates Dr. Claudine Durán MD Primary Care Provider Active Start: June 18, 2024 End: June 18, 2024 CHRISTOPHE LOWRY Attending Provider Active Start: [facility] 2024 End: June 18, 2024 CHRISTOPHE LOWRY Referring Provider Active Start: Ap ril 2024 End: June 18, 2024 Team Status: Inactive Member Role/Relationship Status Dates Dr. Claudine Durán MD Primary Care Provider Active Start: June 20, 2024 End: June 20, 2024 Dr. Claudine Durán MD Referring Provider Active Start: June 20, 2024 End: June 20, 2024 Dr. Diaz Puckett MD Attending Provider Active Start: June 20, 2024 End: June 20, 2024 Team Status: Inactive Member Role/Relationship Status Dates Dr. Claudine Durán MD Primary Care Provider Active Start: July 18, 2024 End: July 19, 2024 CHRISTOPHE LOWRY Attending Provider Active Start: Sandy mcginnis 2024 End: July 19, 2024 CHRISTOPHE LOWRY Referring Provider Active Start: Sandy mcginnis 2024 End: July 19, 2024 Team Status: Inactive Member Role/Relationship Status Dates Dr. Claudine Durán MD Primary Care Provider Active Start: August 18, 2024 End: August 18, 2024 CHRISTOPHE LOWRY Attending Provider Active Start: Nasrin chapa 2024 End: August 18, 2024 CHRISTOPHE LOWRY Referring Provider Active Start: Nasrin chapa 2024 End: August 18, 2024 Railroad Shop Inspector Relationship Specialty Start Date End Date Claudine Durán MD [address] [place] [address] PCP - General Internal Medicine 03/02/16 Will Hurley [address] [place] [address] Referring Rheumatology 04/09/18 Bartolome Francis MD [address] [facility] [place] [address] Surgeon Cardiac Surg 04/02/24 Juvencio Saeed MD [address] [place] [address] Primary Staff Physician Cardiology 04/02/24 Twyla Cuevas SUPERVISOR IRRIGATION.FINANCIAL ANALYSIS ADVISOR [address] [place], [place] [address] [facility] Internal Medicine 05/13/24 Jimbo Swanson APRN.INDUSTRIAL CHEMISTRY TEACHER [address] [place], [place] [address] [facility] Internal Medicine 07/09/24 Goals (unrecognized section and content) Goals may be documented in a n alternate sectionGoals may be documented in an alternate sectionGoals may be documented in an alternate sectionGoals may be documented in an alternate sectionGoals may be documented in an alternate sectionGoals may be documented in an alternate section FOR RECORDS PERTAINING TO PATIENTS WHO ARE [...] BE BASED ON THE PRIMARY CLINICAL RECORDS. [facility] [employer] [facility]. provides no warranty or guarantee of the accuracy or completeness of information in this document.
[2024-08-23 07:57] LABS: Hematocrit 33.9 % (37-47); Hemoglobin 11.3 g/dL (12.0-15.0); Immature Granulocytes Count 0.040 X10^3/uL (0.0-0.0); Mean Corp Hgb Conc 33.3 g/dL (32-36); Mean Corpuscular Volume 96.3 fL (81-99); Mean Platelet Vol. 10.9 fl (6.2-12.0); NRBC Flagged by Analyzer 0 % (0-5); Platelet Count 182 K/mm3 (150-450); RBC Distribution Width CV 17.0 % (11.6-14.6); RBC Distribution Width SD 58.6 fl (35.1-43.9); Red Blood Count 3.52 M/mm3 (4.2-5.4); White Blood Count 7.9 K/mm3 (4.4-11.0)
--- NOTE | 2024-08-23 08:06 | CT_ITS ---
EXAM: CT Head Without Intravenous Contrast CLINICAL INDICATION: TRAUMA TECHNIQUE: Axial computed tomography images of the head/brain without intravenous contrast. This CT exam was performed using one or more of the following dose reduction techniques: automated exposure control, adjustment of the mA and/or kV according to patient size, and/or use of iterative reconstruction technique. COMPARISON: No relevant prior studies available. FINDINGS: BRAIN AND EXTRA-AXIAL SPACES: The cerebral and cerebellar sulci are prominent consistent with brain atrophy. Areas of decreased attenuation in the deep cerebral white matter are consistent with small vessel ischemic/degenerative changes. No acute intracranial hemorrhage, midline shift or mass effect. If symptoms persist, further evaluation with MRI is recommended. BONES/JOINTS: Unremarkable. No acute fracture. SOFT TISSUES: Unremarkable. SINUSES: Unremarkable as visualized. No acute sinusitis. MASTOID AIR CELLS: Unremarkable as visualized. No mastoid effusion. CT/Brain/Head without Contrast IMPRESSION: 1. Generalized brain atrophy. 2. Small vessel ischemic/degenerative changes. 3. No acute intracranial hemorrhage, midline shift or mass effect. If symptoms persist, further evaluation with MRI is recommended. Reading Location: [id number]
[2024-08-23 08:19] LABS: Prothrombin Time (Protime)PT. 15.5 SECONDS (11.7-14.9)
[2024-08-23 08:57] LABS: Anion Gap 14 (5-15); BUN 22 mg/dL (4-19); BUN/Creat Ratio 34.8 RATIO (10-20); Calcium,Total 9.2 mg/dL (7.6-11.0); Carbon Dioxide 22.1 mmol/L (21.0-32.0); Chloride 104 mmol/L (98-108); Estimated Creatinine Clearance 48.72 ml/min (50-250); Glucose 116 mg/dL (70-99); Potassium 3.9 mmol/L (3.3-5.1)
[2024-08-23 08:58] LABS: CPK Total, Creatine Kinase 128 U/L (24-195)
--- NOTE | 2024-08-23 10:23 | PCM.HP.STD ---
HPI - General General Date of Admission: 08/23/24 Date of Service: 08/23/24 Chief Complaint: Fall over left hand and left wrist fracture. HPI Narrative ALENA BUSTAMANTE, is a 79 F came to ED after she had a fall about 1:30 AM in the bedroom while she woke up to go to bathroom. She fell on her left side and also hit her head. She has bruise around the left eye, left wrist pain and swelling. She called to seek help around 6 AM and brought to ED by EMS. She denies any headache. Mechanism of fall is unclear she is not sure how she fell down. She denies lightheaded dizziness chest discomfort shortness of breath, vertigo or loss of consciousness. Denies prior history of seizure. In ED she was found fracture of left distal radius, facial bruise and therefore admitted. Vitals lab and x-ray done in the ED were reviewed. [facility] Medical History Hypertension GERD (gastroesophageal reflux disease) Pericardial effusion CHF (congestive heart failure) Wears glasses Walker as ambulation aid Ambulates with cane Arthritis Excessive bleeding Easy bruising History of ulceration History of GI bleed Gastric reflux Emphysema, unspecified Cardiology follow-up encounter History of edema Severe aortic stenosis ABLA (acute blood loss anemia) Thrombocytopenia Adult failure to thrive Leg edema Rheumatoid arthritis COPD (chronic obstructive pulmonary disease) Former smoker DVT (deep venous thrombosis) Pulmonary embolism Colitis COVID-19 Histoplasmosis Home Medications Medication Instructions Recorded Last Taken Type multivitamin (Daily Multi-Vitamin 1 tab PO DAILY supplement 03/19/23 10/01/23 History tablet) vitamins A,C,T-aojv-isyfym 2,148 2 tab PO BID eye health 03/19/23 10/01/23 History mcg-113 mg-45 mg-17.4 mg tablet (PreserVision AREDS) gabapentin 300 mg capsule 300 mg PO Q12 nerve pain #0 caps 04/05/23 10/01/23 Rx potassium chloride 20 mEq 20 meq PO BIDCM #0 tabs 04/27/23 10/01/23 Rx tablet,extended release(part/cryst) fluticasone propionate 50 1 spray intranasal DAILY 08/13/23 10/02/23 History mcg/actuation nasal spray,suspension furosemide 20 mg tablet 20 mg PO DAILY PRN edema 08/13/23 10/01/23 History tiotropium bromide 2.5 2 puff inhalation DAILY 08/13/23 10/02/23 History mcg/actuation mist for inhalation (Spiriva Respimat) diclofenac sodium 1 % topical gel 4 g topical BID PRN PRN knee pain 08/18/23 10/02/23 Rx (Voltaren Arthritis Pain) #100 grams omega 4-wuh-mcz-fish oil 1,200 mg 1 cap PO DAILY 10/01/23 Unknown History (144 mg-216 mg) capsule (Fish Oil) albuterol sulfate 90 mcg/actuation 2 puff inhalation Q4H PRN PRN 06/13/24 Unknown History aerosol inhaler shortness of breath or wheezing cholecalciferol (vitamin D3) 25 25 mcg PO QDAY 06/13/24 Unknown History mcg (1,000 unit) capsule fluticasone 250 mcg-salmeterol 50 1 inh inhalation BID 06/13/24 Unknown History mcg/dose blistr powdr for inhalation (Wixela Inhub) folic acid 0.8 mg capsule 0.8 mg PO QDAY 06/13/24 Unknown History methotrexate sodium 2.5 mg tablet 10 mg PO QWEEK 06/13/24 Unknown History sulfasalazine 500 mg 1 g PO BID 06/13/24 Unknown History tablet,delayed release acetaminophen 500 mg tablet 1,000 mg PO TID Pain Score 1-10 06/20/24 Unknown History clindamycin HCl 300 mg capsule 600 mg (2 x 300 mg) PO ONCE #2 caps 06/20/24 Unknown Rx ferrous sulfate 325 mg (65 mg 325 mg PO QDAY 06/20/24 Unknown History iron) tablet metoprolol succinate 25 mg 25 mg PO QDAY #30 tabs 07/18/24 Unknown Rx tablet,extended release 24 hr folic acid 1 mg tablet 1 mg PO DAILY 08/23/24 Unknown History warfarin 1 mg tablet mg PO 08/23/24 Unknown History warfarin 5 mg tablet See Rx Instructions .Route .COMPLEX 08/23/24 Unknown History Held on 10/01/23. Instructions: ON HOLD FOR COLONOSCOPY Allergy/AdvReac Type Severity Reaction Status Date / Time Penicillins Allergy Severe Anaphylaxis Verified 06/20/24 10:10 Surgical History History of transcatheter aortic valve replacement (TAVR) History of back surgery History of esophagogastroduodenoscopy (EGD) History of tonsillectomy History of embolic filter insertion Hx of foot surgery Social History household members: none Smoking Status: Former smoker alcohol intake: never substance use type: does not use ROS ROS Narrative Constitutional: Chronic history of RA and arthritis. Denies acute onset of fatigue and weakness. No fever. HEENT: Reports systems reviewed and no addt'l complaints, except as documented Respiratory/Chest: No acute shortness of breath or respiratory distress or wheezing. COPD and history of histoplasmosis. Completed itraconazole for 1 year. CVS: No chest pain or tightness or pressure. Gastrointestinal: Denies coffee ground emesis, hematemesis or vomiting Genitourinary: Denies burning urination or new urinary tract symptoms Musculoskeletal: Chronic knee arthritis. Rest as described in HPI Neurologic: Denies seizure-like symptoms. No syncope. skin: No ulcer. No rash Endocrinology: Reports systems reviewed and no addt'l complaints, except as documented Hematologic/Lymphatic: Reports systems reviewed and no addt'l complaints, except as documented Rest 14 ROS are negative except as mentioned in HPI Vital Signs Vital Signs Vital Signs: 08/23/24 07:18 08/23/24 07:31 08/23/24 09:18 Temperature 98.6 F Temperature Source Oral Pulse Rate 84 64 Respiratory Rate 18 18 Respiratory Effort Normal Respiratory Depth Normal Respiratory Pattern Normal Blood Pressure 113/63 134/76 H Blood Pressure Mean 79 95 Pulse Ox 98 98 Oxygen Delivery Method Room Air Room Air Room Air Weight Weight: 138 lb 7.205 oz Body Mass Index (BMI) 24.5 Physical Exam Narrative General: Alert, Oriented x3, Cooperative HEENT: Atraumatic, PERRLA, EOMI, Normocephalic. Oral: Oral mucosa moist no Gingival or Mucosal Lesions/ Ulcerations Neck: Supple, No JVD, Negative Carotid Bruits Chest wall/Lungs: Air entry diminished in bilateral lung bases. Very fine expiratory rhonchi. Cardiovascular: Regular rate and rhythm, Normal S1,S2, No obvious M/G/R Abdomen: Bowel Sounds Present, Soft, Non Tender, Non-Distended : No dysuria. No renal angle tenderness. No suprapubic tenderness. Extremities: No edema, Capillary Refill Less than 3 Seconds Skin: Left facial forearm bandaged with Dick wrap bandage. Mild swelling and tenderness. Musculoskeletal: Bilateral knee valgus deformity with degenerative arthritis. Chronic RA with bony deformity of wrist and hand joints. Left hand and wrist is splinted. Neurological: Cranial nerves II-XII grossly intact, DTR 2+/4. No acute focal neurological deficit. Psych/Mental Status: Normal Affect, Appropriate. Results Lab / Micro Data 08/23/24 07:45 08/23/24 07:45 Labs: Laboratory Results - last 24 hr 08/23/24 07:45: WBC 7.9, RBC 3.52 L, Hgb 11.3 L, Hct 33.9 L, MCV 96.3, MCH 32.1 H, MCHC 33.3, RDW Std Deviation 58.6 H, RDW Coeff of Catarino 17.0 H, Plt Count 182, MPV 10.9, Immature Gran % (Auto) 0.500, Neut % (Auto) 82.3 H, Lymph % (Auto) 8.1 L, [place] % (Auto) 8.6, Eos % (Auto) 0.1, Baso % (Auto) 0.4, Absolute Neuts (auto) 6.5, Absolute Lymphs (auto) 0.64 L, Nucleated RBC % 0, PT 15.5 H, INR 1.2, Sodium 140, Potassium 3.9, Chloride 104, Carbon Dioxide 22.1, Anion Gap 14, BUN 22 H, Creatinine 0.63 L, Estim Creat Clear Calc 48.72 L, Est GFR (MDRD) Non-Af 91, BUN/Creatinine Ratio 34.8 H, Glucose 116 H, Calcium 9.2, Total Creatine Kinase 128 Imaging Radiology Impression Wrist X-Ray 08/23/24 07:31 IMPRESSION: Comminuted impacted fracture of the distal radius with intra-articular extension. Reading Location: [facility] Brain CT 08/23/24 08:06 IMPRESSION: 1. Generalized brain atrophy. 2. Small vessel ischemic/degenerative changes. 3. No acute intracranial hemorrhage, midline shift or mass effect. If symptoms persist, further evaluation with MRI is recommended. Reading Location: [facility] Assessment & Plan Assessment/Plan (1) Closed fracture of distal end of left radius: (2) Closed head injury without concussion: PLAN: Plan This 72-year-old female was brought to ED when she fell down, mechanism unclear resulting into left wrist fracture. 1. Acute debility of ADL due to closed fracture of distal end of left radius/Colles' fracture: [facility] views of x-ray left wrist x-ray reviewed shows comminuted impacted fracture of distal radius with intra-articular extension. ED patient is splinted in the left wrist but she has trouble in functioning and doing her house chores as she lives alone. Orthopedic surgeon Dr. Molina consulted by ED physician. Pain control PT and OT ordered. 2. Closed head injury without concussion from fall: Patient denies LOC. CT brain reviewed does not show acute intracranial abnormality. Generalized brain atrophy. 3. Severe aortic stenosis status post TAVR: On metoprolol succinate 25 mg daily, furosemide 20 mg daily 4. Chronic DVT status post IVC filter: Patient on warfarin. INR is 1.2. Continue home regimen of warfarin. 5 mg on Sunday and and 6 mg on rest of the days. 5. COPD/history of histoplasmosis twice: Patient completed treatment of itraconazole for 1 year for histoplasmosis about few months ago. Currently not in COPD exacerbation. Continue home maintenance inhaler and as needed albuterol. Incentive spirometry and PEP. 6. Chronic RA and degenerative arthritis: Patient on methotrexate, folic acid, sulfasalazine. She is not on biologic. She also has chronic degenerative arthritis of knees. She can still walk. 7. Anemia of chronic disease: H&H 11.3/34%. MCV 96.3. Platelet count 182K. Patient was last admitted in August 08 4 GI bleed. EGD on 08/09/2023 showed normal esophagus, small hiatus hernia, nonbleeding duodenal ulcer with no stigmata of bleeding. 3 bleeding in the dysplastic lesion seen jejunum treated with heater probe. Patient on ferrous sulfate. Vitamin C added. Continue folic acid. 8. DVT prophylaxis: INR 1.2, subtherapeutic. Continue home regimen. Monitor INR daily Living will/advanced directive/end of life care: Patient does have living will or advanced directive. She is a . After discussion of benefits/risks procedures involved with full code, DNR CC arrest and DNR CC, the patient opted for full code. Patient does want artificial life support including intubation, tube feed, ventilator and/chest compression, central venous catheter, vasopressor and DC shock if needed Total time spent in [id number] encounter in discussion of advanced directive 17 minutes. Laboratory Results 08/23/24 07:45: WBC 7.9, RBC 3.52 L, Hgb 11.3 L, Hct 33.9 L, MCV 96.3, MCH 32.1 H, MCHC 33.3, RDW Std Deviation 58.6 H, RDW Coeff of Catarino 17.0 H, Plt Count 182, MPV 10.9, Immature Gran % (Auto) 0.500, Neut % (Auto) 82.3 H, Lymph % (Auto) 8.1 L, [place] % (Auto) 8.6, Eos % (Auto) 0.1, Baso % (Auto) 0.4, Absolute Neuts (auto) 6.5, Absolute Lymphs (auto) 0.64 L, Nucleated RBC % 0, PT 15.5 H, INR 1.2, Sodium 140, Potassium 3.9, Chloride 104, Carbon Dioxide 22.1, Anion Gap 14, BUN 22 H, Creatinine 0.63 L, Estim Creat Clear Calc 48.72 L, Est GFR (MDRD) Non-Af 91, BUN/Creatinine Ratio 34.8 H, Glucose 116 H, Calcium 9.2, Total Creatine Kinase 128 Clinical Impression(s) from Imaging Studies Wrist X-Ray 08/23/24 07:31 IMPRESSION: Comminuted impacted fracture of the distal radius with intra-articular extension. Reading Location: [facility] Brain CT 08/23/24 08:06 IMPRESSION: 1. Generalized brain atrophy. 2. Small vessel ischemic/degenerative changes. 3. No acute intracranial hemorrhage, midline shift or mass effect. If symptoms persist, further evaluation with MRI is recommended. Reading Location: [facility] Charges/Coding Visit Charges Inpatient E&M: 54922 Init Hosp L3 Procedures Hospitalists Procedures: 10896 Advncd Care Plan 30 Min
[2024-08-23 11:05] LABS: Magnesium 2.1 mg/dL (1.5-2.2)
--- OUTSIDE RECORDS SUMMARY | 2024-08-23 11:08 | XMS RPT_ITS | CCD ---
Author Organization [facility] Care Team Providers Care Compress Machine Operator Name Role Phone Mykel Santamaria Unavailable Unavailable Mykel Santamaria Unavailable Unavailable UNKNOWN, REFERR Unavailable Unavailable Will Hurley Attending Unavailable PROVIDER, UNKNOWN Referring Unavailable No, PCP Primary Care Unavailable Claudine Durán MD Primary Care Provider Will Hurley Unavailable [phone] Gold Colón RN Unavailable UnavailClaudine Cannon MD Primary Care Provider Will Hurley Unavailable [phone] Gold Colón RN Unavailable Unavailabl Will Foote Unavailable [phone] Lulú Ramos RN Unavailable [phone] Katarzyna MITCHELL, Gold Coyne Unavailable UnavailClaudine Cannon MD Primary Care Provider Will Hurley Unavailable Rachel RN, Lulú Unavailable Rachel RN, Lulú Unavailable [phone] Paul RN, Ilda Unavailable Paul RN, Ilda Unavailable Rachel RN, Lulú Unavailable [phone] Lynne Maynard RN Unavailable Unavailable Dr. [...] Provider Dr. Jorgito Agarwal Other Provider Sharon COLOR MATCHER, COLOR MATCHER-C Rosalina Other Provider Dr. Jasmyn Chan Referring [...] Provider Dr. Jorgito Agarwal Other Provider Sharon COLOR MATCHER, COLOR MATCHER-C Rosalina Other Provider Dr. Edinson Irvin Chi [...] Provider Dr. Jorgito Agarwal Other Provider Sharon COLOR MATCHER, COLOR MATCHER-C Rosalina Other Provider Dr. Edinson Irvin Chi Referring Provider Claudine Durán MD Primary Care Provider Juarez COLOR MATCHER, COLOR MATCHER-C Fadia Attending Provider Dr. Zaynab Pina Attending Provider CLAUDINE DURÁN Primary Care Unavailable WILLIAM MESSINA Attending Unavailab david Ramos RN, Lulú Coyne Unavailable CLAUDINE DURÁN Primary Care Unavailable MICHAEL LUJAN Admitting Unavailable SHARAN RIVAS Attending Unavailable GENO CAMACHO Consulting Unavailable Swanson DIAMOND DRILLER HELPER.ROCKBOARD LATHER, Jimbo Unavailable Mason DIAMOND DRILLER HELPER.REGIONAL CONTROLLER, Twyla Unavailable Bartolome Francis MD Unavailable Christophe MC, Juvencio Unavailable Eli RN, Pili Unavailable Unavailable Mason DIAMOND DRILLER HELPER.REGIONAL CONTROLLER, Twyla Jannet Unavailable Mason DIAMOND DRILLER HELPER.REGIONAL CONTROLLER, Twyla Unavailable Eli MITCHELL, Pili Unavailable Unavailable Mason DIAMOND DRILLER HELPER.REGIONAL CONTROLLER, Twyla Unavailable Mason DIAMOND DRILLER HELPER.REGIONAL CONTROLLER, Twyla Unavailable Dr. Claudine Durán MD Primary Care Provider JUVENCIO SAEED Attending Provider JUVENCIO SAEED Referring Provider Dr. Claudine Durán MD Referring Provider Dr. Diaz Puckett MD Attending Provider Swanson DIAMOND DRILLER HELPER.ROCKBOARD LATHER, Jimbo Unavailable CLAUDINE DURÁN Primary Care Unavailable [...] (antibiotic) (5 sources) Penicillins Drug Allergy 5 [facility] (20 sources) Penicillins; Translations: [PENICILLINS] Propensity to adverse reactions (disorder) 5 [facility] Repository Medications Current Medications Medication Drug Class(es) [...] 7 days. 7 tablet 10/11/2023 10/18/2023 Active [id number] 200 actuat albuterol 0.09 mg/actuat metered dose [...] (20 sources) Vitamin C Start: 03-19-2023 Vitamins A,C,L-Flym-Dmzjqm (Preservision Areds) 2,148 mcg-113 mg-45 mg-17.4mg tablet Active 2 {tbl} PO TWICE A DAY March 19, 2023 1:00am eye health administer with AM and PM meals Start: 03-19-2023 Start: 03-13-2022 take 2 tablets by mo uth once daily at breakfast vit A,C,U-Iohn-Fpxyfg (OCUVITE PRESERVISION) 2,148 mcg-113 mg-45 mg-17.4mg tab Take 2 tablets by mouth daily with breakfast. 03/13/2022 Active Comment on above: Take 2 tablets by mo [facility] daily with breakfast. cholecalciferol 0.025 mg [...] Start: 01-24-2011 take 1 capsule by mo [facility] once daily Cholecalciferol, Vitamin D3, 1,000 unit ORAL Cap Take 1 capsule by mouth once daily. 1 capsule 0 01/24/2011 Active Comment on above: Take 1 capsule by [facility] once daily. clindamycin 300 mg oral capsule [...] End: 04-27-2023 Fluticasone Propionate 50 mc g/actuation [place],Suspension Discontinued 1 NMA NASAL DAILY 0 0 [...] (FLONASE) 50 mcg/actuation nasal spray Use 1 [place] in each nostril once daily. 3 Each 3 07/20/2022 06/20/2024 Discontinued Comment on above: Use 1 [place] in each nostril once daily. Fluticasone Propion-Salmeterol [...] Comment on above: Take 1 capsule by [facility] twice daily. Take 1 capsule by [facility] two times a day. iv contrast (will [...] affected area twice daily for 10 days. [place] 2-Zvb-Jht-Fish Oil (Fish Oil) 1,200 (144-216) mg capsule (3 sources) Start: 10-01-2023 [place] 3-Dha-Ep a-Fish Oil (Fish Oil) 1,200 (144-216) [...] 2.5 ug by inhalation once daily Tiotropium [place] (Spiriva Respimat) 2.5 mcg/actuation mist Active 2 [...] ug by inhalation every twenty-four hours Tiotropium [place] (Spiriva Respimat) 2.5 mcg/actuation mist Discontinued 2 NMA INHALATION Q24H March 19, 2023 1:00am April 27, 2023 2:17pm Start: 03-19-2023 End: 04-27-2023 Start: 03-19-2023 End: 04-27-2023 take 1 puff(s) by inhalation every twenty-four hours Tiotropium [place] (Spiriva Respimat) 2.5 mcg/actuation mist Discontinued 2 [...] 20 mg/ml oral solution (16 sources) Uncompetitive N-ajnlre-Y-aspartate Receptor Antagonist, Sigma-1 Agonist Start: End: take [...] 1:00am docusate sodium 50 mg / sennosides, chcf 8.6 mg oral tablet (18 sources) Start: [...] Comment on above: Take 1 capsule by [facility] three times a day as needed for [...] current use of drug therapy; Translations: [Other manager long term care (current) drug therapy] 08-22-2023 Episodic Other aftercare (2 sources) Long-term current use of antibiotic; Translations: [FPC (current) use of antibiotics] 12-18-2023 Episodic Other [...] sources) Long-term current use of anticoagulant; Translations: [bed bug exterminator (current) use of 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] Onset: 0 12-10-2014 Episodic Other aftercare (1 source) bed bug exterminator (current) use of 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; Translations: [FPC current use of anticoagulant therapy] Onset: 5 Episodic Other aftercare (1 source) Encounter for therapeutic drug level monitoring; Translations: [Encounter for therapeutic drug monitoring] Onset: 4 Episodic Other aftercare (1 source) Other senior living (current) drug therapy; Translations: [Encounter for long-term current use of medication] Onset: 4 Episodic Other aftercare (1 source) FPC (current) use of antibiotics; Translations: [Encounter for [...] Panel InformationOrdered By: Santos Guillory on 07-24-2024 [facility] Cardiac Rehab [address] [place] [address] CR - Individual Treatment Plan MR#: [id number] Acct: [id number] Name: HAYDEE BUSTAMANTE Rep #:[id number] : 1945 79 From: Santos Rubalcava BS, RVT PCP: Dr. Claudine Durán MD DOS: 06/13 Exercise - Initial Assessment Physician Prescribed Exercise Modalities: Treadmill, SciFit Stepper and SciFit Pro-II Ergometer Nutrition - Initial Assessment Weight Mgt (Other Care) Height: 5 ft 3 in Weight:: 133 lb BMI: 23.6 Core - Initial Assessment Hypertension Resting Blood Pressure:: 132/70 [place] [employer] Hypertension Guidelines Psychosocial - Initial [...] modify LDL go (more content not included)... [facility] No Panel InformationOrdered By: Santos Guillory on 06-27-2024 [facility] Cardiac Rehab [address] [place] [address] CR - Individual Treatment Plan MR#: [id number] Acct: [id number] Name: HAYDEE BUSTAMANTE DIONTE Rep #:[id number] : 1945 79 From: Santos Rubalcava BS, RVT PCP: Dr. Claudine Durán MD DOS: 11/13 Exercise - Initial [...] Session 10,Verbalizes symptom (more content not included)... [facility] 12 Lead EKG performed by [facility] on 06-20-2024 12 Lead EKG performed by [facility] [address] [place] [address] 12 Lead EKG performed by [facility] 06/20/24 5760 MR#: [id number] Acct: [id number] Name: HAYDEE BUSTAMANTE Rep #: [id number] : 1945 79 From: Diaz Puckett MD Attending Dr: Dr. Diaz Puckett MD Status: THOMPSON Ordering Dr: Diaz Puckett MD Date: 06/20/24 [place] [facility] Sex: F C Admitted: BMS/12 Lead EKG performed by [facility] ECG Report Interpretation S inus Rhythm - occasional PAC # PACs = 1.-Combined atrial enlargement. Low voltage -possible pulmonary disease. ABNORMAL Electronically signed on 06/20/2024 at 12:[address] Diaz Coley Software Version 8610 06/20/24 1229 Date Diaz Puckett MD CC: Dr. Claudine Durán MD Date Dictated: 06/20/24 154 Date Transcribed: 06/20/241546 Cement Loader: Signed Normal [facility] Cardiology Visit Reporton Cardiology Visit Report [facility] [address] [place] [address] OFFICE VISIT Date of Service: 06/20/24 MR#: [id number] Acct: [id number] Name: HAYDEE BUSTAMANTE Rep #: [id number] : 1945 Provider: Dr. Diaz dickson MD Age/Sex: 79/F [place] [facility] Status: Signed HPI HPI History of Present Illness Details: Patient is a 79-year-old white female comes in today for new patient visit. Patient is routinely cared for in the [facility] system where she had her TAVR April 2024. Patient carries a history of critical aortic stenosis status post TAVR April 2024 at [facility] follow-up echo showed a peak gradient [...] had been in outpatient rehab here at [facility] which she is tolerating without incident. The patient was not aware of her SBE prophylaxis needs given her bioprosthetic valve. She is allergic to penicillin but has not ever taken clindamycin to her knowledge. The patient is scheduled to follow-up with the [facility] in the next few weeks. She is wishing to transfer her care primarily to the [facility] once she is released from the [facility] in their TAVR program. ECG in [...] Intake Visit Reasons: AORTICE VALVE STENOSIS (SWANSON) Feeder Catcher Tobacco Required: No Accompanied by: Self Is patient in pain?: No Allergies Penicillins Allergy (Severe, Verified 06/20/24 10:10) Anaphylaxis Medications ???Medication ???Instructions ???Recorded ???Confirmed ???Type multivitamin (Daily Multi-Vitamin 1 tab PO DAILY supplement 4 06/20/24 History tablet) vitamins A,C,U-cmjq-afrdls 2,148 2 tab PO BID eye health [...] tabs Instructions: ON HOLD FOR COLONOSCOPY omega 4-gty-ifb-fish oil 1,200 mg 1 cap PO DAILY [...] History Hypertension (more content not included)... Normal [facility] CR - History AND Physicalon 05-28-2024 CR - History & Physical [facility] Cardiac Rehab [address] [place] [address] CR - History Physical MR#: [id number] Acct: [id number] Name: HAYDEE BUSTAMANTE Rep #: [id number] : 1945 78 From: Santos Rubalcava BS, [...] tab PO DAILY supplement 4 tablet) vitamins A,C,H-aycj-vyceso 2,148 2 tab PO BID eye health [...] tabs Instructions: ON HOLD FOR COLONOSCOPY omega 3-rty-iyj-fish oil 1,200 mg 1 cap PO DAILY [...] Do you have a Healthcare Power of Production Boring Machine Operator?: Yes Living Will: Yes Advance Directives Information [...] 100/54 P (more content not included)... Normal [facility] Cardiac rehabilitation evalu ation reportOrdered By: Santos Guillory on 05-28-2024 Study report [facility] Cardiac Rehab [address] [place] [address] CR - History & Physical MR#: [id number] Acct: [id number] Name: HAYDEE BUSTAMANTE Rep #:[id number] : 1945 78 From: Santos Rubalcava BS, [...] PO DAILY suppl ement 03/19/23 tablet) vitamins A,C,Z-sauj-dyxxoc 2,148 2 tab PO BID eye heal [...] tabs Instructions: ON HOLD FOR COLONOSCOPY omega 2-vff-acw-fish oil 1,200 mg 1 cap PO DAILY [...] Do you have a Healthcare Power of Production Boring Machine Operator?: Yes Living Will: Yes Advance Directives Information [...] for Smoking and (more content not included)... [facility] No Panel InformationOrdered By: Santos Guillory on 05-28-2024 [facility] Cardiac Rehab [address] [facility] [place] [address] CR - Individual Treatment Plan MR#: [id number] Acct: [id number] Name: HAYDEE BUSTAMANTE Rep #:[id number] : 1945 78 From: Santos Rubalcava BS, [...] Referral to Physical Therapy: No Referral to [facility] Case Management: No Fall Risk Assessed:: [...] SciFit Stepper, SciFit Pro-II Ergometerand SciFit Lateral Timber Faller Frequency: 3x/week for 12 weeks [36 sessions] [...] rehaband Other additional (more content not included)... [facility] XR Chest PA and Lateralon Radiology Study observation (narrative) [facility] IMPRESSION: See result. Cement Loader: KRYSTAL Transcribe Date/Time: Apr 30 2024 11:46A Dictated by : ABIGAIL ODOM MD This examination was interpreted and the report reviewed and electronically signed by: ABIGAIL ODOM MD on Apr 30 2024 11:47AM [facility] DIVISION OF RADIOLOGY * * *Final Report* [...] soft tissues: Unremarkable. DIVISION OF RADIOLOGY Provider, [facility] Nina [facility] - 04/30/2024 * * *Final Report* [...] soft tissues: Unremarkable. IMPRESSION IMPRESSION: See result. Cement Loader: KRYSTAL Transcribe Date/Time: Apr 30 2024 11:46A Dictated by : ABIGAIL ODOM MD This examination was interpreted and the report reviewed and electronically signed by: ABIGAIL ODOM MD on Apr 30 2024 11:47AM EST [facility] XR Chest PA and LateralOrder ed By: Ccf Provider on 04-30-2024 [facility] SPECT Heart for infarct W Tc -99m PYP IVOrdered By: Ccf Provider on 03-25-2024 Interpretation and review of laboratory results Abnormal [facility] Radiology Result ACTIONABLE Abnormal [facility] Comment on above: This report contains [...] contact your provider for the next steps. [facility] SPECT Heart for infarct W Tc -99m PYP Komal 03-25-2024 * * *Final Report* * * DATE OF EXAM: Mar 25 2024 12:13PM [facility] 0847 - [place] CARDIAC AMYLOID SPECT/CT / PROCEDURE REASON: Nonrheumatic aortic valve stenosis * * * * Physician Interpretation * * * * [facility] Report: [facility] Date of service: 03/25/2024 11:41:51 AM BEEBE [...] See administered radiotracer and dose below. [facility] Date of service: 03/25/2024 11:41:51 AM Ordering [...] * * Final * * * RP Cement Loader: SYNDYN Transcribe Date/Time: Mar 25 2024 11:41A Dictated by : ORB MARCELO MD This examination was interpreted and the report reviewed and electronically signed by: ROB MARCELO MD on Mar 25 2024 12:19PM [facility] DIVISION OF RADIOLOGY Provider, [facility] 03/25/2024 * * *Final Report* * * DATE OF EXAM: Mar 25 2024 12:13PM [facility] 0847 - IN CARDIAC AMYLOID SPECT/CT / PROCEDURE REASON: Nonrheumatic aortic valve stenosis * * * * Physician Interpretation * * * * [place] CTAC Report: [facility] Date of service: 03/25/2024 11:41:51 AM CTAC [...] See administered radiotracer and dose below. [facility] Date of service: 03/25/2024 11:41:51 AM Ordering [...] * * Final * * * RP Cement Loader: BELEN Transcribe Date/Time: Mar 25 2024 11:41A Dictated by : ROB MARCELO MD This examination was interpreted and the report reviewed and electronically signed by: ROB MARCELO MD on Mar 25 2024 12:19PM EST [facility] Radiology [facility]narrative) [facility] CREATININE, BLOOD (POC)on Creatinine [Mass/Vol] 0.60 mg/dL Abnormal 0.7 - 1.4 mg/dL [facility] eGFR (POCT) mL/min/1.7 3 m2 [facility] Interpretation and review of laboratory results Abnormal [facility] Location:Radiology [facility], [address] [place] [address] POINT OF CARE [facility] CTA Abdominal vessels and Pe lvis [...] AORTIC DIMENSIONS: AORTIC ROOT: 3.5 cm measured vcnam-ul-vlcdb STJ: 2.5 cm mid ASCENDING THORACIC AORTA: [...] lumbar spine. Anterolisthesis of L4 over L5 Fish And Wildlife Warden (topogram) images: No additional findings. DIVISION OF RADIOLOGY Provider, [facility] - 03/21/2024 * * *Final Report* * [...] AORTIC DIMENSIONS: AORTIC ROOT: 3.5 cm measured pacdo-ai-ilklg STJ: 2.5 cm mid ASCENDING THORACIC AORTA: [...] lumbar spine. Anterolisthesis of L4 over L5 Fish And Wildlife Warden (topogram) images: (more content not included)... [facility] Radiology Study observation (narrative) [facility] CTA Chest vessels W contrast Komal [...] AORTIC DIMENSIONS: AORTIC ROOT: 3.5 cm measured leriy-kd-vando STJ: 2.5 cm mid ASCENDING THORACIC AORTA: [...] lumbar spine. Anterolisthesis of L4 over L5 Fish And Wildlife Warden (topogram) images: No additional findings. DIVISION OF RADIOLOGY Provider, [facility] - 03/21/2024 * * *Final Report* * [...] AORTIC DIMENSIONS: AORTIC ROOT: 3.5 cm measured terve-tf-soxof STJ: 2.5 cm mid ASCENDING THORACIC AORTA: [...] lumbar spine. Anterolisthesis of L4 over L5 Fish And Wildlife Warden (topogram) im (more content not included)... [facility] Radiology Study observation (narrative) [facility] No Panel Informationon 03-21 IMPRESSION: Aortic Annulus and valve anatomy as described above Normal thoracic and abdomiinal aorta.Atherosclerotic changes as in the body of the report.Minimum luminal diameter throughout: 7 mm Cement Loader: KRYSTAL Transcribe Date/Time: Mar 21 2024 11:22A Dictated by : CALIXTO BLACKWOOD MD This examination was interpreted and the report reviewed and electronically signed by: CALIXTO BLACKWOOD MD on Mar 21 2024 12:53PM EST DIVISION OF RADIOLOGY No Panel InformationOrdered By: Ccf Provider on 03-21-2024 [facility] XR Chest PA and Lateralon IMPRESSION: See result Cement Loader: KRYSTAL Transcribe Date/Time: Mar 21 2024 12:02P [...] density DIVISION OF RADIOLOGY Provider, Narayan Wood [facility] - 03/21/2024 * * *Final Report* [...] Decreased bone density IMPRESSION IMPRESSION: See result Cement Loader: PSCB Transcribe Date/Time: Mar 21 2024 12:02P Dictated by : JACKELINE SCUHLER MD This examination was interpreted and the report reviewed and electronically signed by: JACKELINE SCHULER MD on Mar 21 2024 12:04PM [facility] Radiology Study observation (narrative) [facility] XR Chest PA and LateralOrder ed By: Cc Provider on [facility] CNPN Telephone (AKPRAD) HAYDEE BUSTAMANTE ([id number]) 1945 F [facility] Date Time Provider Department 01/04/24 GENO HART [...] (FLONASE) 50 mcg/actuation nasal spray Use 1 [place] in each nostril once daily. - pantoprazole DR (PROTONIX) 40 mg tablet Take 1 tablet by mouth once daily. - vit A,C,O-Saer-Hiivem (OCUVITE PRESERVISION) 2,148 mcg-113 mg-45 mg-17.4mg tab [...] by this patient by: PATIENT Muna Harris (Patent Prosecution Paralegal) [facility] for senior living medications. Problem List As Of Date 12/20 (more content not included)... Normal [facility] HISTOPLASMA AG URINEOrdered By: Cabrera Duggan on 12-21-2023 H. capsulatum Ag (U) [Mass/Vol] ng/mL NINF - 0.2 ng/mL [facility] H. capsulatum Ag IA Ql (U) Negative Negative [facility] Comment on above: Histoplasma galactom adilene antigen, urine test is used as an aid in diagnosing histoplasmosis. A negative result cannot rule out infection. Low positive results may at times be due to cross-reactivity with Blastomyces, Talaromyces marneffei, Paracoccidioides, and some Wendy species. Clinical radiological, and epidemiological correlation is required. Interpretation and review of laboratory results Normal [facility] ITRACONAZOLE BLOODOrdered By : Elvira Cronin on 12-21-2023 Hydroxyitraconazole 1.1 ug/mL [facility] Comment on above: Ranges are based on [...] of Aspergillosis and Candidiasis and consultation from [facility]'s Department of Infectious Disease. Reference ranges and high/low indicator flags are provided as general guidelines only. The treating physician must determine appropriate target levels/dosing based on the specific clinical situation. This test was developed, and its performance characteristics determined by the [facility] Department of Pathology and Laboratory Medicine. It has not been cleared or approved by the FDA. The [facility] Department of Pathology and Laboratory Medicine is regulated under CLIA as qualified to perform high-complexity testing. This test is used for clinical purposes. It should not be regarded as investigational or for research. Itraconazole 0.8 ug/mL 0.6 - 2.9 ug/mL [facility] Hepatic function 2000 panelo n 12-20-2023 Albumin [Mass/Vol] 3.7 g/dL Low 3.9 - 4.9 g/dL [facility] ALP [Catalytic activity/Vol] 95 U/L 34 - 123 U/L [facility] ALT [Catalytic activity/Vol] 19 U/L 7 - 38 U/L [facility] AST [Catalytic activity/Vol] 20 U/L 13 - 35 U/L [facility] Bilirubin [Mass/Vol] 0.6 mg/dL 0.2 - 1 .3 mg/dL [facility] Bilirubin.conjugated [Mass/Vol] 0.2 mg/dL High [facility] - 0.2 mg/dL [facility] Interpretation and review of laboratory results Abnormal [facility] Protein [Mass/Vol] 7.0 g/dL 6.3 - 8.0 g/dL [facility] CBC W Auto Differential pane l (Bld)on 10-11-2023 Basophils (Bld) [#/Vol] 0.05 10*3/uL [facility] Basophils/100 WBC (Bld) 0.5 % C [facility] Differential cell count method Nom (Bld) Auto [facility] Eosinophils (Bld) [#/Vol] 0.12 10*3/uL [facility] Eosinophils/100 WBC (Bld) 1.2 % [facility] Erythrocyte distribution width (RBC) [Ratio] 16.8 % High 11.5 - 15.0 % [facility] Hematocrit (Bld) [Volume fraction] 32.4 % Low 36.0 - 46.0 % [facility] Hemoglobin (Bld) [Mass/Vol] 10.1 g/dL Low 11.5 - 15.5 g/dL [facility] Immature granulocytes (Bld) [#/Vol] 0.05 10*3/uL [facility] Immature granulocytes/100 WBC (Bld) 0.5 % [facility] Interpretation and review of laboratory results Abnormal [facility] Lymphocytes (Bld) [#/Vol] 1.31 10*3/uL [facility] Lymphocytes/100 WBC (Bld) 13.3 % [facility] MCH (RBC) [Entitic mass] 26.9 pg 26.0 - 34.0 pg [facility] MCHC (RBC) [Mass/Vol] 31.2 g/dL 30.5 - 36.0 g/dL [facility] MCV (RBC) [Entitic vol] 86.4 fL 80.0 - 100.0 fL [facility] Monocytes (Bld) [#/Vol] 1.00 10*3/uL High [facility] Monocytes/100 WBC (Bld) 10.2 % C [facility] Neutrophils (Bld) [#/Vol] 7.32 10*3/uL [facility] Neutrophils/100 WBC (Bld) 74.3 % [facility] Nucleated RBC (Bld) [#/Vol] [facility] Nucleated RBC/100 WBC (Bld) [Ratio] 0.0 % /100 WBC [facility] Platelet mean volume (Bld) [Entitic vol] 11.6 fL 9.0 - 12.7 fL [facility] Platelets (Bld) [#/Vol] 349 10*3/uL [facility] RBC (Bld) [#/Vol] 3.75 10*6/uL Low 3.90 - 5.20 m/uL [facility] WBC (Bld) [#/Vol] 9.85 10*3/uL [facility] Comprehensive metabolic 2000 panelon 10-11-2023 Albumin [Mass/Vol] 3.9 g/dL 3.9 - 4.9 g/dL [facility] ALP [Catalytic activity/Vol] 111 U/L 34 - 123 U/L [facility] ALT [Catalytic activity/Vol] 22 U/L 7 - 38 U/L [facility] Anion gap [Moles/Vol] 11 mmol/L 8 - 15 mmol/L [facility] AST [Catalytic activity/Vol] 23 U/L 13 - 35 U/L [facility] Bilirubin [Mass/Vol] 0.3 mg/dL 0.2 - 1 .3 mg/dL [facility] Calcium [Mass/Vol] 9.4 mg/dL 8.5 - 10. 2 mg/dL [facility] Chloride [Moles/Vol] 99 mmol/L 98 - 10 7 mmol/L [facility] CO2 [Moles/Vol] 24 mmol/L 22 - 30 mmol/L [facility] Creatinine [Mass/Vol] 0.59 mg/dL 0.58 - 0.96 mg/dL [facility] GFR/1.73 sq M.predicted among non-blacks MDRD (S/P/Bld) [Vol rate/Area] 94 mL/min/{1.73_m2} - PINF [facility] Comment on above: Estimated Glomerular Filtration [...] [Mass/Vol] 76 mg/dL 74 - 99 mg/dL [facility] Comment on above: The [place] Diabete s Association (ADA) provides guidance for [...] Standards of Medical Care in Diabetes 2016, [place] [employer]. Diabetes Care. 2016.39(Suppl 1). Interpretation and review of laboratory results Abnormal [facility] Potassium [Moles/Vol] 5.1 mmol/L 3.7 - 5.1 mmol/L [facility] Protein [Mass/Vol] 7.6 g/dL 6.3 - 8.0 g/dL [facility] Sodium [Moles/Vol] 134 mmol/L Low 136 - 144 mmol/L [facility] Urea nitrogen [Mass/Vol] 26 mg/dL High 7 - 21 mg/dL [facility] MR/POSTOP.ANEon 10-02-2023 MR/POSTOP.ANE [facility] Medical Records Department [address] [facility] [place] [address] Anesthesia Postop Eval I 10/02/23 1329 MR#: [id number] Acct: [id number] Name: HAYDEE BUSTAMANTE Rep #: [id number] : 1945 78 From: Monique Drew PCP: Dr. Claudine Durán MD Status:REG [facility] Y Race: C Location: [place] [address] Anesthesia: Postop Eval I Current Vital Signs [...] Monique Jha Signature: Date CC: Signed Normal [facility] MR/[id number] 10-02-2023 MR/POSTOPAN2 [facility] Medical Records Department [address] [place] [address] Anesthesia Postop Eval II 10/02/23 1407 MR#: [id number] Acct: [id number] Name: HAYDEE BUSTAMANTE Rep #: [id number] : 1945 78 From: Bob Vital MD PCP: Dr. Claudine Durán MD Status:REG SDC Y Race: C Location: [place] [address] Anesthesia Postop Eval I Sum Postop Eval Completion status Anesthesia document: Postop Eval 1 completed: Yes Anesthesia Postop Eval I Summary Anesthesia Postop Eval I Summary: Anesthesia Postop Eval I: Assessment Summary Airway patent Yes 10/02/23 13:29 PC INSTALLATION ENGINEER.CSIR Spontaneous unlabored Yes 10/02/23 13:29 PC INSTALLATION ENGINEER.CSIR respirations Mental status nausea No 10/02/23 13:29 PC INSTALLATION ENGINEER.CSIR Vomiting No 10/02/23 13:29 PC INSTALLATION ENGINEER.CSIR Anesthesia Postop Eval I: Fluid Summary Crystalloid volume administer 400 10/02/23 13:29 PC INSTALLATION ENGINEER.CSIR (ml) Colloids volume administered ( ml) Blood Product volume administered (ml) Total IV fluid infused 400 10/02/23 13:29 PC INSTALLATION ENGINEER.CSIR Anesthesia Postop Eval I: Summary Notes Anesthesia Complication No 10/02/23 13:29 PC INSTALLATION ENGINEER.CSIR Anesthesia Complication Comment: Post-operative progress note Anesthesia: Postop Eval II Evaluation Mental status: Awake Pain Level: 0 nausea: No Vomiting: No 10/02/23 1407 Date Bob Vital MD Cosigner Signature: Date CC: Signed Normal [facility] Office Visit Reporton 2023 Office Visit Report [facility] [address] [address] OFFICE VISIT Date of Service: MR#: [id number] Acct: [id number] Patient: HAYDEE BUSTAMANTE Rep #: [id number] : 1945 Provider: Mathew Orellana DO Age/Sex: 78/F Location: [facility] Status: Signed Intake Vital Signs 10/02/23 11:48 Height 5 ft 3 in Intake Visit Reasons: Video capsule placement Allergies Penicillins Allergy (Severe, Verified 10/02/23 11:42) Anaphylaxis Have you fallen in the past year?: No Nursing Note Capsule endoscopy performed prior to colonoscopy. ID number: [id number]: [id number] Clinical Quality Measures Falls Risk Screening/Assistive Devices Have you fallen in the past year?: No 10/02/23 1710 Date Mathew Odonnell Signature: Date (if applicable) CC: Normal [facility] Protime w/INR Fingerstickon 10-02-2023 INR Coag (PPP) [Relative time] 1.3 {INR} Normal [facility] Comment on above: Result Comment: Crit ical Value > 4.0 Performed By: #### L 9200.0000 #### [facility] [address] [place], [place], [address] Protime [place]en 13.9 SEC Normal 11.7-14.9 [facility] Comment on above: Performed By: #### L 9200.0000 #### [facility] [address] [place], [address] Surgery Specimen Level Komal 10-02-2023 Surgery Specimen Level IV Patient Age/Sex Location Account Attending Physician ROBBYHAYDEE DIONTE 78/F EN [id number] Mathew Orellana DO Specimen: [id number] Received: 10/02/23 Status: AMMY [place] Num: [id number] Spec Type: EGD BIOPSY Subm Dr: Mathew [...] totally submitted in one cassette. 10/03/2023 TC:2 CPT:06992z3 Patient Age/Sex Location Account Attending Physician HAYDEE BUSTAMANTE 78/F EN [id number] Mathew Orellana DO Signed (signature on file) Dr. Elpidio Laboy DO 10/04/23 1118 Normal [facility] Comment on above: Performed By: #### P SUIV #### [facility] [address] [place], [address] CBC W/Diff, Automatedon 07-02 23-2023 Absolute Lymph 0.93 X10 3/uL Normal 0.83-4.51 [facility] Comment on above: Performed By: #### L 100.0100 #### [facility] [address] [place], [address] Absolute Neut 4.3 X10 3/uL Normal 2.0-7.7 [facility] Comment on above: Performed By: #### L 100.0100 #### [facility] [address] [place], [address] Basophils/100 WBC (Bld) 0.8 % Normal 0-1 [facility] Comment on above: Performed By: #### L 100.0100 #### [facility] [address] [place], [address] Eosinophils/100 WBC (Bld) 0.6 % Normal 0-5 [facility] Comment on above: Performed By: #### L 100.0100 #### [facility] [address] [place], [address] Erythrocyte distribution width (RBC) [Ratio] 17.6 % High 11.6-14.6 [facility] Comment on above: Performed By: #### L 100.0100 #### [facility] [address] [place], [address] Hematocrit (Bld) [Volume fraction] 27.7 % Low 37-47 [facility] Comment on above: Performed By: #### L 100.0100 #### [facility] [address] [place], [address] Hemoglobin (Bld) [Mass/Vol] 8.8 g/dL Low 12.0-15.0 [facility] Comment on above: Performed By: #### L 100.0100 #### [facility] [address] [place], [address] IG% 0.500 Normal 0.0-0.9 [facility] Comment on above: Result Comment: IG% - Immature Granulocytes (promyelocytes, myelocytes and metamyelocytes) > 1% indicates that a LEFT SHIFT is Present. Performed By: #### L 100.0100 #### [facility] [address] [place], [address] Lymphocytes/100 WBC (Bld) 14.8 % Low 19-41 [facility] Comment on above: Performed By: #### L 100.0100 #### [facility] [address] [place], [address] MCH (RBC) [Entitic mass] 28.5 pg Normal 27.0-32.0 [facility] Comment on above: Performed By: #### L 100.0100 #### [facility] [address] [place], [address] MCHC (RBC) [Mass/Vol] 31.8 g/dL Low 32-36 [facility] Comment on above: Performed By: #### L 100.0100 #### [facility] [address] [place], [address] MCV (RBC) [Entitic vol] 89.6 fL Normal 81-99 [facility] Comment on above: Performed By: #### L 100.0100 #### [facility] [address] [place], [address] Monocytes/100 WBC (Bld) 14.3 % High 0-10 [facility] Comment on above: Performed By: #### L 100.0100 #### [facility] [address] [place], [address] Neutrophils/100 WBC (Bld) 69.0 % Normal 47-70 [facility] Comment on above: Performed By: #### L 100.0100 #### [facility] [address] [place], [address] Nucleated RBC (Bld) [#/Vol] 0 10*3/uL Normal 0-5 [facility] Comment on above: Performed By: #### L 100.0100 #### [facility] [address] [place], [address] Platelet mean volume (Bld) [Entitic vol] 11.4 fL Normal 6.2-12.0 [facility] Comment on above: Performed By: #### L 100.0100 #### [facility] [address] [place], [address] Platelets (Bld) [#/Vol] 296 10*3/uL Normal 150-450 [facility] Comment on above: Performed By: #### L 100.0100 #### [facility] [address] [place], [address] RBC (Bld) [#/Vol] 3.09 10*6/uL Low 4.2-5.4 [facility] Comment on above: Performed By: #### L 100.0100 #### [facility] [address] [place], [address] RDW SD 56.9 fl High 35.1-43.9 [facility] Comment on above: Performed By: #### L 100.0100 #### [facility] [address] [place], [address] WBC (Bld) [#/Vol] 6.3 10*3/uL Normal 4.4-11.0 [facility] Comment on above: Performed By: #### L 100.0100 #### [facility] [address] [place], [address] Gastroenterology Visit Repor ton 09-03-2023 Gastroenterology Visit Report [facility] Gastroenterology [address] [place] [address] OFFICE VISIT Date of Service: 09/03/23 MR#: [id number] Acct: [id number] Name: HAYDEE BUSTAMANTE Rep #: [id number] : 1945 Provider: MARY ANN Wilks Age/Sex: 78/F Location: [facility] Status: Signed Intake Vital Signs 08/17/23 11:11 [...] in the morning but 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 [...] edema Ps (more content not included)... Normal [facility] HISTOPLASMA AB CFon 09-02-19 24 H. capsulatum mycelial phase Ab CF (S) [Titer] <1:8 [facility] Comment on above: INTERPRETIVE INFORMA TION: Histoplasma Mycelia Antibodies by CF A titer of 1:8 or greater is generally considered presumptive evidence of histoplasmosis. A titer of 1:32 or greater or rising titers indicate strong presumptive evidence of histoplasmosis. Cross reactions, usually at lower titers, may occur with other fungal diseases. H. capsulatum yeast phase Ab CF (S) [Titer] <1:8 [facility] Comment on above: INTERPRETIVE INFORMA TION: Histoplasma Yeast Antibodies by CF A titer of 1:8 or greater is generally considered presumptive evidence of histoplasmosis. A titer of 1:32 or greater or rising titers indicate strong presumptive evidence of histoplasmosis. Cross reactions, usually at lower titers, may occur with other fungal diseases. Performed By: [employer] [address] [place] [address] Backside Grinder: Ernie Issa MD, PhD CLIA Number: [id number] [facility] HISTOPLASMA AG URINEOrdered By: Maricarmen Call on 08-31-2023 H. capsulatum Ag (U) [Mass/Vol] 0.4 ng/mL High NINF - 0.2 ng/mL [facility] H. capsulatum Ag IA Ql (U) Positive Abnormal Negative [facility] Comment on above: Histoplasma galactom adilene antigen, urine test is used as an aid in diagnosing histoplasmosis. A negative result cannot rule out infection. Low positive results may at times be due to cross-reactivity with Blastomyces, Talaromyces marneffei, Paracoccidioides, and some Wendy species. Clinical radiological, and epidemiological correlation is required. Interpretation and review of laboratory results Abnormal [facility] ITRACONAZOLE BLOODOrdered By : Elvira Cronin on 08-31-2023 Hydroxyitraconazole 2.4 ug/mL [facility] Comment on above: Ranges are based on [...] of Aspergillosis and Candidiasis and consultation from [facility]'s Department of Infectious Disease. Reference ranges and high/low indicator flags are provided as general guidelines only. The treating physician must determine appropriate target levels/dosing based on the specific clinical situation. This test was developed and its performance characteristics determined by [facility] [place] ([facility] It has not been cleared or approved by the FDA. [facility] is regulated under CLIA as qualified to perform high-complexity testing. This test is used for clinical purposes. It should not be regarded as investigational or for research. Itraconazole 1.3 ug/mL 0.6 - 2.9 ug/mL [facility] CNOVon 08-27-2023 CNOV Office Visit (ANGIE ) HAYDEE BUSTAMANTE ([id number]) 1945 F T Date Time Provider Department 08/27/23 8:20 AM WILLIAM MESSINA During your visit today, we recorded the following information about you: Pulse Blood pressure Weight Height 81/minute 116/68 58.1 kg 1.6 m William Messina DO 08/27/2023 2:47 PM Signed [facility] OUTPATIENT VISIT DATE August 27, 2023 PRIMARY CARE PHYSICIAN: Claudine Durán [address] [place] [address] HISTORY OF PRESENT ILLNESS: Ms. Bustamante is [...] hemorrhage) Diverticulosis DVT, recurrent, lower extremity, acute ([facility]) 12/10/2014 Esophageal reflux Hiatal hernia 02/25/2018 Hypertension Lung nodule Personal history of unspecified urinary disorder 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 rheumatoid factor ([facility]) 03/07/2015 Dr. Hurley ([facility]) (more content not included)... [facility] 08-27-2023 [facility] Telephone (Augmentix) HAYDEE BUSTAMANTE ([id number]) 1945 F T Date Time Provider Department [...] (FLONASE) 50 mcg/actuation nasal spray Use 1 [place] in each nostril once daily. - pantoprazole DR (PROTONIX) 40 mg tablet Take 1 tablet by mouth once daily. - vit A,C,X-Fzil-Dvmamk (OCUVITE PRESERVISION) 2,148 mcg-113 mg-45 mg-17.4mg tab [...] by this patient by: PATIENT Muna Harris (Patent Prosecution Paralegal) [facility] for senior living medications. 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 Normal [facility] CBC W Auto Differential pane l (Bld)on 08-22-2023 Basophils (Bld) [#/Vol] 0.04 10*3/uL [facility] Basophils/100 WBC (Bld) 0.5 % C [facility] Differential cell count method Nom (Bld) Auto [facility] Eosinophils (Bld) [#/Vol] 0.08 10*3/uL [facility] Eosinophils/100 WBC (Bld) 1.0 % [facility] Erythrocyte distribution width (RBC) [Ratio] 17.4 % High 11.5 - 15.0 % [facility] Hematocrit (Bld) [Volume fraction] 28.5 % Low 36.0 - 46.0 % [facility] Hemoglobin (Bld) [Mass/Vol] 9.1 g/dL Low 11.5 - 15.5 g/dL [facility] Immature granulocytes (Bld) [#/Vol] 0.04 10*3/uL [facility] Immature granulocytes/100 WBC (Bld) 0.5 % [facility] Interpretation and review of laboratory results Abnormal [facility] Lymphocytes (Bld) [#/Vol] 0.93 10*3/uL Low [facility] Lymphocytes/100 WBC (Bld) 11.6 % [facility] MCH (RBC) [Entitic mass] 29.0 pg 26.0 - 34.0 pg [facility] MCHC (RBC) [Mass/Vol] 31.9 g/dL 30.5 - 36.0 g/dL [facility] MCV (RBC) [Entitic vol] 90.8 fL 80.0 - 100.0 fL [facility] Monocytes (Bld) [#/Vol] 0.72 10*3/uL [facility] Monocytes/100 WBC (Bld) 9.0 % C [facility] Neutrophils (Bld) [#/Vol] 6.19 10*3/uL [facility] Neutrophils/100 WBC (Bld) 77.4 % [facility] Nucleated RBC (Bld) [#/Vol] [facility] Nucleated RBC/100 WBC (Bld) [Ratio] 0.0 % /100 WBC [facility] Platelet mean volume (Bld) [Entitic vol] 10.8 fL 9.0 - 12.7 fL [facility] Platelets (Bld) [#/Vol] 293 10*3/uL [facility] RBC (Bld) [#/Vol] 3.14 10*6/uL Low 3.90 - 5.20 m/uL [facility] WBC (Bld) [#/Vol] 8.00 10*3/uL [facility] Comprehensive metabolic 2000 panelOrdered By: Adri Cabrera on 08-22-2023 Albumin [Mass/Vol] 3.2 g/dL Low 3.9 - 4.9 g/dL [facility] ALP [Catalytic activity/Vol] 97 U/L 34 - 123 U/L [facility] ALT [Catalytic activity/Vol] 20 U/L 7 - 38 U/L [facility] Anion gap [Moles/Vol] 10 mmol/L 8 - 15 mmol/L [facility] AST [Catalytic activity/Vol] 25 U/L 13 - 35 U/L [facility] Bilirubin [Mass/Vol] 0.4 mg/dL 0.2 - 1 .3 mg/dL [facility] Calcium [Mass/Vol] 8.5 mg/dL 8.5 - 10. 2 mg/dL [facility] Chloride [Moles/Vol] 103 mmol/L 98 - 10 7 mmol/L [facility] CO2 [Moles/Vol] 26 mmol/L 22 - 30 mmol/L [facility] Creatinine [Mass/Vol] 0.55 mg/dL Low 0.58 - 0.96 mg/dL [facility] GFR/1.73 sq M.predicted among non-blacks MDRD (S/P/Bld) [Vol rate/Area] 95 mL/min/{1.73_m2} - PINF [facility] Comment on above: Estimated Glomerular Filtration [...] [Mass/Vol] 82 mg/dL 74 - 99 mg/dL [facility] Comment on above: The [place] Diab[employer] (ADA) provides guidance for [...] Standards of Medical Care in Diabetes 2016, [place] [employer]. Diabetes Care. 2016.39(Suppl 1). Interpretation and review of laboratory results Abnormal [facility] Potassium [Moles/Vol] 3.3 mmol/L Low 3.7 - 5.1 mmol/L [facility] Protein [Mass/Vol] 5.8 g/dL Low 6.3 - 8.0 g/dL [facility] Sodium [Moles/Vol] 139 mmol/L 136 - 144 mmol/L [facility] Urea nitrogen [Mass/Vol] 16 mg/dL 7 - 21 mg/dL [facility] INR (POC)on 08-22-2023 INR Coag (PPP) [Relative time] 1.1 {INR} 0.8 - 1.2 [facility] Internal Quality Check Acceptable [facility] Location:[address], [id number] [place] [address] POINT OF CARE [facility] No Panel InformationOrdered By: Zaynab Pina on 05-31-2023 29.8 SECONDS 11.7-14.9 [facility] 2.9 [facility] Absolute lymphocyte countOrd ered By: Zaynab Pina on 05-29-2023 Lymphocytes Auto (Unsp spec) [#/Vol] 1.06 10*3/uL 0.83-4.51 [facility] Automated lymphocyte count a s percentage of total leukocytesOrdered By: Zaynab Pina on 05-29-2023 Lymphocytes/100 WBC Auto (Unsp spec) 17.1 % 19-41 [facility] Basophil percentageOrdered B y: Zaynab Pina on 05-29-2023 Basophil percentage 9.8 g/dL 12.0-15.0 [facility] Basophil percentage 80 mg/dL 74-106 [facility] Basophil percentage 139 mmol/L 136-145 [facility] Basophil percentage 3.4 mmol/L 3.5-5.1 [facility] Basophil percentage 106 mmol/L 98-107 [facility] Basophils (Bld) [#/Vol] 6.2 10*3/uL 4.4-11.0 [facility] Basophils (Bld) [#/Vol] 4.1 10*3/uL 2.0-7.7 [facility] Basophils/100 WBC (Bld) 66.4 % 47-70 [facility] Basophils/100 WBC (Bld) 12.3 % 0-10 [facility] Basophils/100 WBC (Bld) 3.2 % 0-5 [facility] Basophils/100 WBC (Bld) 0.5 % 0-1 [facility] Determination of erythrocyte mean corpuscular volume (MCV)Ordered By: Zaynab Pina on 05-29-2023 MCV (RBC) [Entitic vol] 81.1 fL 81-99 [facility] Erythrocyte distribution wid th ratioOrdered By: Claudiobeardenjoesph Pina on 05-29-2023 Erythrocyte distribution width (RBC) [Ratio] 17.6 % 11.6-14.6 [facility] Erythrocyte distribution wid th standard deviationOrdered By: Zaynab Pina on 05-29-2023 Erythrocyte distribution width (RBC) [Entitic vol] 52.1 fL 35.1-43.9 [facility] Hematocrit Auto (Bld) [Volum e fraction]Ordered By: Claudiobeardenjoesph Pina on 05-29-2023 Hematocrit (Bld) [Volume fraction] 30.8 % 37-47 [facility] Immature granulocytes/100 WB C Auto (Bld)Ordered By: Zaynab Pina on 05-29-2023 Immature granulocytes/100 WBC (Bld) 0.500 % 0.0-0.9 [facility] No Panel InformationOrdered By: elmerbeardenjoesph Cherrymarily on 05-29-2023 25.8 pg 27.0-32.0 [facility] 31.8 g/dL 32-36 [facility] 194 K/mm3 150-450 [facility] 11.0 fl 6.2-12.0 [facility] 0 % 0-5 [facility] 116 mL/min >60 [facility] 141 mL/min >60 [facility] 29.6 RATIO 10-20 [facility] 28.0 mmol/L 21.0-32.0 [facility] RBC Auto (Bld) [#/Vol]Ordere d By: Zaynab Pina on 05-29-2023 RBC (Bld) [#/Vol] 3.80 10*6/uL 4.2-5.4 [facility] Serum or plasma calcium monica urement (mass/volume)Ordered By: Zaynab Pina on 05-29-2023 Calcium [Mass/Vol] 8.4 mg/dL 8.5-10.1 [facility] Serum or plasma creatinine m easurement (mass/volume)Ordered By: Zaynab Pina on 05-29-2023 Creatinine [Mass/Vol] 0.54 mg/dL 0.55-1.02 [facility] Serum or plasma urea nitroge n measurement (mass/volume)Ordered By: Zaynab Pina on 05-29-2023 Urea nitrogen [Mass/Vol] 16 mg/dL 7-18 [facility] Thin prep Papanicolaou smear with manual screeningOrdered By: Zaynab Pina on 05-29-2023 Thin prep Papanicolaou smear with manual screening 5 5-15 [facility] No Panel InformationOrdered By: Zaynab Pina on 05-28-2023 30.6 SECONDS 11.7-14.9 [facility] 3.0 [facility] Capillary blood internationa l normalized ratio (INR)Ordered By: Zaynab Pina on 05-24-2023 INR Coag (BldC) [Relative time] 1.9 [facility] Whole blood prothrombin time Ordered By: Zaynab Pina on 05-24-2023 PT Coag (Bld) [Time] 20.2 s 11.7-14.9 [facility] Capillary blood internationa l normalized ratio (INR)Ordered By: Zaynab Pina on 05-21-2023 INR Coag (BldC) [Relative time] 2.8 [facility] Whole blood prothrombin time Ordered By: Zaynab Pina on 05-21-2023 PT Coag (Bld) [Time] 28.8 s 11.7-14.9 [facility] Capillary blood internationa l normalized ratio (INR)Ordered By: Zaynab Pina on 05-17-2023 INR Coag (BldC) [Relative time] 3.0 [facility] Whole blood prothrombin time Ordered By: Zaynab Pina on 05-17-2023 PT Coag (Bld) [Time] 30.2 s 11.7-14.9 [facility] Absolute lymphocyte countOrd ered By: Zaynab Pina on 05-15-2023 Lymphocytes Auto (Unsp spec) [#/Vol] 1.62 10*3/uL 0.83-4.51 [facility] Automated lymphocyte count a s percentage of total leukocytesOrdered By: Zaynab Pina on 05-15-2023 Lymphocytes/100 WBC Auto (Unsp spec) 18.8 % 19-41 [facility] Basophil percentageOrdered B y: Zaynab Pina on 05-15-2023 Basophil percentage 10.0 g/dL 12.0-15.0 [facility] Basophil percentage 71 mg/dL 74-106 [facility] Basophil percentage 137 mmol/L 136-145 [facility] Basophil percentage 4.1 mmol/L 3.5-5.1 [facility] Basophil percentage 103 mmol/L 98-107 [facility] Basophils (Bld) [#/Vol] 8.6 10*3/uL 4.4-11.0 [facility] Basophils (Bld) [#/Vol] 5.6 10*3/uL 2.0-7.7 [facility] Basophils/100 WBC (Bld) 64.8 % 47-70 [facility] Basophils/100 WBC (Bld) 11.8 % 0-10 [facility] Basophils/100 WBC (Bld) 3.3 % 0-5 [facility] Basophils/100 WBC (Bld) 0.7 % 0-1 [facility] Determination of erythrocyte mean corpuscular volume (MCV)Ordered By: Zaynab Pina on 05-15-2023 MCV (RBC) [Entitic vol] 82.7 fL 81-99 [facility] Erythrocyte distribution wid th ratioOrdered By: Zaynab Pina on 05-15-2023 Erythrocyte distribution width (RBC) [Ratio] 18.1 % 11.6-14.6 [facility] Erythrocyte distribution wid th standard deviationOrdered By: Zaynab Pina on 05-15-2023 Erythrocyte distribution width (RBC) [Entitic vol] 54.5 fL 35.1-43.9 [facility] Hematocrit Auto (Bld) [Volum e fraction]Ordered By: Zaynab Pina on 05-15-2023 Hematocrit (Bld) [Volume fraction] 32.0 % 37-47 [facility] Immature granulocytes/100 WB C Auto (Bld)Ordered By: Zaynab Pina on 05-15-2023 Immature granulocytes/100 WBC (Bld) 0.600 % 0.0-0.9 [facility] No Panel InformationOrdered By: Zaynab Pina on 05-15-2023 25.8 pg 27.0-32.0 [facility] 31.3 g/dL 32-36 [facility] 322 K/mm3 150-450 [facility] 10.2 fl 6.2-12.0 [facility] 0 % 0-5 [facility] 96 mL/min >60 [facility] 117 mL/min >60 [facility] 20.4 RATIO 10-20 [facility] 27.0 mmol/L 21.0-32.0 [facility] RBC Auto (Bld) [#/Vol]Ordere d By: Zaynab Pina on 05-15-2023 RBC (Bld) [#/Vol] 3.87 10*6/uL 4.2-5.4 [facility] Serum or plasma calcium monica urement (mass/volume)Ordered By: Zaynab Pina on 05-15-2023 Calcium [Mass/Vol] 9.0 mg/dL 8.5-10.1 [facility] Serum or plasma creatinine m easurement (mass/volume)Ordered By: Zaynab Pina on 05-15-2023 Creatinine [Mass/Vol] 0.64 mg/dL 0.55-1.02 [facility] Serum or plasma urea nitroge n measurement (mass/volume)Ordered By: Zaynab Pina on 05-15-2023 Urea nitrogen [Mass/Vol] 13 mg/dL 09-05 [facility] Thin prep Papanicolaou smear with manual screeningOrdered By: Zaynab Pina on 05-15-2023 Thin prep Papanicolaou smear with manual screening 7 5- [facility] Capillary blood internationa l normalized ratio (INR)Ordered By: Zaynab Pina on 05-14-2023 INR Coag (BldC) [Relative time] 3.0 [facility] Comment on above: Critical Value > 4.0 Whole blood prothrombin time Ordered By: Zaynab Pina on 05-14-2023 PT Coag (Bld) [Time] 30.4 s 11.7-14.9 [facility] Capillary blood internationa l normalized ratio (INR)Ordered By: Zaynab Pina on 05-10-2023 INR Coag (BldC) [Relative time] 2.8 [facility] Comment on above: Critical Value > 4.0 Whole blood prothrombin time Ordered By: Zaynab Pina on 05-10-2023 PT Coag (Bld) [Time] 28.1 s 11.7-14.9 [facility] Capillary blood internationa l normalized ratio (INR)Ordered By: Zaynab Pina on 05-07-2023 INR Coag (BldC) [Relative time] 2.2 [facility] Comment on above: Critical Value > 4.0 Whole blood prothrombin time Ordered By: Zaynab Pina on 05-07-2023 PT Coag (Bld) [Time] 24.4 s 11.7-14.9 [facility] Laboratory - CoagulationOrde red By: Zaynab Pina on 05-03-2023 INR Coag (Bld) [Relative time] 2.1 {INR} [facility] PT Coag (PPP) [Time] 23.2 s 11.7-14.9 [facility] No Panel InformationOrdered By: Zaynab Pina on 05-03-2023 23.2 SECONDS 11.7-14.9 [facility] 2.1 [facility] Absolute lymphocyte countOrd ered By: Zaynab Pina on 05-01-2023 Lymphocytes Auto (Unsp spec) [#/Vol] 1.74 10*3/uL 0.83-4.51 [facility] Automated lymphocyte count a s percentage of total leukocytesOrdered By: Zaynab Pina on 05-01-2023 Lymphocytes/100 WBC Auto (Unsp spec) 23.1 % 19-41 [facility] Basophil percentageOrdered B y: Zaynab Pina on 05-01-2023 Basophil percentage 10.7 g/dL 12.0-15.0 [facility] Basophil percentage 86 mg/dL 74-106 [facility] Basophil percentage 5.8 g/dL 6.4-8.2 [facility] Basophil percentage 0.60 mg/dL 0.20-1.00 [facility] Basophil percentage 137 mmol/L 136-145 [facility] Basophil percentage 3.7 mmol/L 3.5-5.1 [facility] Basophil percentage 105 mmol/L 98-107 [facility] Basophils (Bld) [#/Vol] 7.5 10*3/uL 4.4-11.0 [facility] Basophils (Bld) [#/Vol] 4.7 10*3/uL 2.0-7.7 [facility] Basophils/100 WBC (Bld) 0.7 % 0-1 [facility] Basophils/100 WBC (Bld) 62.4 % 47-70 [facility] Basophils/100 WBC (Bld) 12.0 % 0-10 [facility] Basophils/100 WBC (Bld) 1.3 % 0-5 [facility] Bilirubin [Mass/Vol] 0.60 mg/dL 0.20-1.00 [facility] Comment on above: For patients on eltr ombopag therapy, use of Dimension Bromide TBIL is not recommended. Chloride [Moles/Vol] 105 mmol/L 98-107 [facility] Eosinophils/100 WBC (Bld) 1.3 % 0-5 [facility] Glucose [Mass/Vol] 86 mg/dL 74-106 [facility] Hemoglobin (Bld) [Mass/Vol] 10.7 g/dL 12.0-15.0 [facility] Monocytes/100 WBC (Bld) 12.0 % 0-10 [facility] Neutrophils (Bld) [#/Vol] 4.7 10*3/uL 2.0-7.7 [facility] Neutrophils/100 WBC (Bld) 62.4 % 47-70 [facility] Potassium [Moles/Vol] 3.7 mmol/L 3.5-5.1 [facility] Protein [Mass/Vol] 5.8 g/dL 6.4-8.2 [facility] Sodium [Moles/Vol] 137 mmol/L 136-145 [facility] WBC (Bld) [#/Vol] 7.5 10*3/uL 4.4-11.0 [facility] Determination of erythrocyte mean corpuscular volume (MCV)Ordered By: Zaynab Pina on 05-01-2023 MCV (RBC) [Entitic vol] 84.2 fL 81-99 [facility] Erythrocyte distribution wid th ratioOrdered By: Claudiobeardenjoesph Pina on 05-01-2023 Erythrocyte distribution width (RBC) [Ratio] 19.4 % 11.6-14.6 [facility] Erythrocyte distribution wid th standard deviationOrdered By: [facility] spaldingjoesph Cherrymarily on 05-01-2023 Erythrocyte distribution width (RBC) [Entitic vol] 60.2 fL 35.1-43.9 [facility] Hematocrit Auto (Bld) [Volum e fraction]Ordered By: Zaynab Pina on 05-01-2023 Hematocrit (Bld) [Volume fraction] 33.1 % 37-47 [facility] Immature granulocytes/100 WB C Auto (Bld)Ordered By: Zaynab Pina on 05-01-2023 Immature granulocytes/100 WBC (Bld) 0.500 % 0.0-0.9 [facility] Comment on above: IG% - Immature Granu locytes (promyelocytes, myelocytes and metamyelocytes) > 1% indicates that a LEFT SHIFT is Present. Laboratory - Chemistry and C hemistry - challengeOrdered By: Zaynab Pina on 05-01-2023 Albumin/Globulin [Mass ratio] 0.9 {ratio} 0.9-2.4 [facility] ALP [Catalytic activity/Vol] 93 U/L 45-117 [facility] ALT [Catalytic activity/Vol] 35 U/L 13-56 [facility] CO2 [Moles/Vol] 27.0 mmol/L 21.0-32.0 [facility] Globulin (S) [Mass/Vol] 3.1 g/dL 2.2-4.2 [facility] Urea nitrogen/Creatinine [Mass ratio] 56.7 mg/mg 10-20 [facility] Laboratory - Hematology and Cell countsOrdered By: Zaynab Pina on 05-01-2023 MCH (RBC) [Entitic mass] 27.2 pg 27.0-32.0 [facility] MCHC (RBC) [Mass/Vol] 32.3 g/dL 32-36 [facility] Nucleated RBC/100 WBC (Bld) [Ratio] 0 % 0-5 [facility] Platelet mean volume (Bld) [Entitic vol] 10.2 fL 6.2-12.0 [facility] Platelets (Bld) [#/Vol] 223 10*3/uL 150-450 [facility] No Panel InformationOrdered By: Zaynab Pina on 05-01-2023 Estimated GFR (MDRD) Amer 163 mL/min >60 [facility] Comment on above: GFR Calc Estimated GFR (MDRD) Non-Af Amer 135 mL/min >60 [facility] Comment on above: Non- GFR Calc Vitamin D 25-Hydroxy 42.6 ng/mL [facility] Comment on above: Vitamin D 25(OH) Sta tus Range Deficiency <20 ng/mL (50nmol/L) Insufficiency 20 - 30 ng/mL (50 - 75 nmol/L) Sufficiency 30 - 100 ng/mL (75 - 250 nmol/L) Toxicity >100 ng/mL (>250 nmol/L) 27.2 pg 27.0-32.0 [facility] 32.3 g/dL 32-36 [facility] 223 K/mm3 150-450 [facility] 10.2 fl 6.2-12.0 [facility] 0 % 0-5 [facility] 135 mL/min >60 [facility] 163 mL/min >60 [facility] 56.7 RATIO 10-20 [facility] 3.1 g/dL 2.2-4.2 [facility] 0.9 RATIO 0.9-2.4 [facility] 93 U/L 45-117 [facility] 35 U/L 13-56 [facility] 27.0 mmol/L 21.0-32.0 [facility] 42.6 ng/mL [facility] RBC Auto (Bld) [#/Vol]Ordere d By: Zaynab Pina on 05-01-2023 RBC (Bld) [#/Vol] 3.93 10*6/uL 4.2-5.4 [facility] Serum or plasma calcium monica urement (mass/volume)Ordered By: Zaynab Pina on 05-01-2023 Calcium [Mass/Vol] 8.6 mg/dL 8.5-10.1 [facility] Serum or plasma creatinine m easurement (mass/volume)Ordered By: Zaynab Pina on 05-01-2023 Creatinine [Mass/Vol] 0.48 mg/dL 0.55-1.02 [facility] Comment on above: The validity of the calculated GFR & GFRAA in patients over 70 years has not been determined. Clinical correlation is essential. Serum or plasma urea nitroge n measurement (mass/volume)Ordered By: Zaynab Pina on 05-01-2023 Urea nitrogen [Mass/Vol] 27 mg/dL 7-18 [facility] Thin prep Papanicolaou smear with manual screeningOrdered By: Zaynab Pina on 05-01-2023 Thin prep Papanicolaou smear with manual screening 2.7 g/dL 3.2-5.0 [facility] Thin prep Papanicolaou smear with manual screening 23 U/L 15-37 [facility] Thin prep Papanicolaou smear with manual screening 5 5-15 [facility] Laboratory - CoagulationOrde red By: Edinson Irvin on 04-30-2023 INR Coag (Bld) [Relative time] 2.2 {INR} [facility] PT Coag (PPP) [Time] 24.5 s 11.7-14.9 [facility] No Panel InformationOrdered By: Edinson Irvin on 04-30-2023 24.5 SECONDS 11.7-14.9 [facility] 2.2 [facility] Basophil percentageOrdered B y: Edinson Irvin on 04-27-2023 Basophil percentage 82 mg/dL 74-106 [facility] Basophil percentage 136 mmol/L 136-145 [facility] Basophil percentage 3.6 mmol/L 3.5-5.1 [facility] Basophil percentage 101 mmol/L 98-107 [facility] Chloride [Moles/Vol] 101 mmol/L 98-107 [facility] Glucose [Mass/Vol] 82 mg/dL 74-106 [facility] Potassium [Moles/Vol] 3.6 mmol/L 3.5-5.1 [facility] Sodium [Moles/Vol] 136 mmol/L 136-145 [facility] Laboratory - Chemistry and C hemistry - challengeOrdered By: Edinson Irvin on 04-27-2023 CO2 [Moles/Vol] 28.0 mmol/L 21.0-32.0 [facility] Urea nitrogen/Creatinine [Mass ratio] 54.9 mg/mg 10-20 [facility] No Panel InformationOrdered By: Edinson Irvin on 04-27-2023 Estimated Creatinine Clearance Calc 50.26 ml/min [facility] Estimated GFR (MDRD) Amer 151 mL/min >60 [facility] Comment on above: GFR Calc Estimated GFR (MDRD) Non-Af Amer 125 mL/min >60 [facility] Comment on above: Non- GFR Calc 125 mL/min >60 [facility] 151 mL/min >60 [facility] 50.26 ml/min [facility] 54.9 RATIO 10- [facility] 28.0 mmol/L 21.0-32.0 [facility] Serum or plasma calcium monica urement (mass/volume)Ordered By: Edinson Irvin on 04-27-2023 Calcium [Mass/Vol] 8.4 mg/dL 8.5-10.1 [facility] Serum or plasma creatinine m easurement (mass/volume)Ordered By: Edinson Irvin on 04-27-2023 Creatinine [Mass/Vol] 0.51 mg/dL 0.55-1.02 [facility] Comment on above: The validity of the calculated GFR & GFRAA in patients over 70 years has not been determined. Clinical correlation is essential. Serum or plasma urea nitroge n measurement (mass/volume)Ordered By: Edinson Irvin on 04-27-2023 Urea nitrogen [Mass/Vol] 28 mg/dL 7-18 [facility] Thin prep Papanicolaou smear with manual screeningOrdered By: Edinson Irvin on 04-27-2023 Thin prep Papanicolaou smear with manual screening 7 5-15 [facility] Laboratory - CoagulationOrde red By: Edinson Irvin on 04-16-2023 INR Coag (Bld) [Relative time] 1.2 {INR} [facility] PT Coag (PPP) [Time] 14.8 s 11.7-14.9 [facility] Basophil percentageOrdered B y: Edinson Irvin on 04-13-2023 Chloride [Moles/Vol] 104 mmol/L 98-107 [facility] Glucose [Mass/Vol] 89 mg/dL 74-106 [facility] Potassium [Moles/Vol] 3.5 mmol/L 3.5-5.1 [facility] Sodium [Moles/Vol] 136 mmol/L 136-145 [facility] Laboratory - Chemistry and C hemistry - challengeOrdered By: Edinson Irvin on 04-13-2023 CO2 [Moles/Vol] 28.0 mmol/L 21.0-32.0 [facility] Urea nitrogen/Creatinine [Mass ratio] 38.2 mg/mg 10-20 [facility] No Panel InformationOrdered By: Edinson Irvin on 04-13-2023 Estimated Creatinine Clearance Calc 50.26 ml/min [facility] Estimated GFR (MDRD) Amer 147 mL/min >60 [facility] Comment on above: GFR Calc Estimated GFR (MDRD) Non-Af Amer 121 mL/min >60 [facility] Comment on above: Non- GFR Calc Respiratory pathogens detect ion panel by molecular detection methodOrdered By: Edinson Irvin on 04-13-2023 Respiratory pathogens DNA and RNA panel GWEN+probe (Resp) [facility] Respiratory pathogens DNA and RNA panel GWEN+probe (Resp) [facility] Serum or plasma calcium monica urement (mass/volume)Ordered By: Edinson Irvin on 04-13-2023 Calcium [Mass/Vol] 7.8 mg/dL 8.5-10.1 [facility] Serum or plasma creatinine m easurement (mass/volume)Ordered By: Edinson Irvin on 04-13-2023 Creatinine [Mass/Vol] 0.52 mg/dL 0.55-1.02 [facility] Comment on above: The validity of the calculated GFR & GFRAA in patients over 70 years has not been determined. Clinical correlation is essential. Serum or plasma urea nitroge n measurement (mass/volume)Ordered By: Edinson Irvin on 04-13-2023 Urea nitrogen [Mass/Vol] 20 mg/dL 7-18 [facility] Thin prep Papanicolaou smear with manual screeningOrdered By: Edinson Irvin on 04-13-2023 Thin prep Papanicolaou smear with manual screening 4 5-15 [facility] Absolute lymphocyte countOrd ered By: Edinson Irvin on 04-12-2023 Lymphocytes Auto (Unsp spec) [#/Vol] 1.14 10*3/uL 0.83-4.51 [facility] Automated lymphocyte count a s percentage of total leukocytesOrdered By: Edinson Irvin on 04-12-2023 Lymphocytes/100 WBC Auto (Unsp spec) 27.6 % 19-41 [facility] Basophil percentageOrdered B y: Edinson Irvin on 04-12-2023 Basophil percentage 10.1 g/dL 12.0-15.0 [facility] Basophils (Bld) [#/Vol] 4.1 10*3/uL 4.4-11.0 [facility] Basophils (Bld) [#/Vol] 2.1 10*3/uL 2.0-7.7 [facility] Basophils/100 WBC (Bld) 1.2 % 0-1 [facility] Basophils/100 WBC (Bld) 50.6 % 47-70 [facility] Basophils/100 WBC (Bld) 11.4 % 0-10 [facility] Basophils/100 WBC (Bld) 8.7 % 0-5 [facility] Eosinophils/100 WBC (Bld) 8.7 % 0-5 [facility] Hemoglobin (Bld) [Mass/Vol] 10.1 g/dL 12.0-15.0 [facility] Monocytes/100 WBC (Bld) 11.4 % 0-10 [facility] Neutrophils (Bld) [#/Vol] 2.1 10*3/uL 2.0-7.7 [facility] Neutrophils/100 WBC (Bld) 50.6 % 47-70 [facility] WBC (Bld) [#/Vol] 4.1 10*3/uL 4.4-11.0 [facility] Determination of erythrocyte mean corpuscular volume (MCV)Ordered By: Edinson Irvin on 04-12-2023 MCV (RBC) [Entitic vol] 86.8 fL 81-99 [facility] Erythrocyte distribution wid th ratioOrdered By: Edinson Irvin on 04-12-2023 Erythrocyte distribution width (RBC) [Ratio] 22.8 % 11.6-14.6 [facility] Erythrocyte distribution wid th standard deviationOrdered By: [facility] Erythrocyte distribution width (RBC) [Entitic vol] 72.1 fL 35.1-43.9 [facility] Hematocrit Auto (Bld) [Volum e fraction]Ordered By: [facility] on 04-12-2023 Hematocrit (Bld) [Volume fraction] 30.9 % 37-47 [facility] Immature granulocytes/100 WB C Auto (Bld)Ordered By: [facility]23 Immature granulocytes/100 WBC (Bld) 0.500 % 0.0-0.9 [facility] Comment on above: IG% - Immature Granu locytes (promyelocytes, myelocytes and metamyelocytes) > 1% indicates that a LEFT SHIFT is Present. Laboratory - Hematology and Cell countsOrdered By: Edinson Irvin on 04-12-2023 MCH (RBC) [Entitic mass] 28.4 pg 27.0-32.0 [facility] MCHC (RBC) [Mass/Vol] 32.7 g/dL 32-36 [facility] Nucleated RBC/100 WBC (Bld) [Ratio] 0 % 0-5 [facility] Platelet mean volume (Bld) [Entitic vol] 9.8 fL 6.2-12.0 [facility] Platelets (Bld) [#/Vol] 119 10*3/uL 150-450 [facility] No Panel InformationOrdered By: Edinson Irvin on 04-12-2023 28.4 pg 27.0-32.0 [facility] 32.7 g/dL 32-36 [facility] 119 K/mm3 150-450 [facility] 9.8 fl 6.2-12.0 [facility] 0 % 0-5 [facility] RBC Auto (Bld) [#/Vol]Ordere d By: Edinson Irvin on 04-12-2023 RBC (Bld) [#/Vol] 3.56 10*6/uL 4.2-5.4 [facility] Blood manual differential co mment interpretation (narrative result)Ordered By: Edinson Irvin on 04-11-2023 Manual differential comment Donte (Bld) [Interp] SCANNED [facility] Blood platelet adequacy dete ction by light microscopyOrdered By: Edinson Irvin on 04-11-2023 Platelets LM Ql (Bld) MOD DEC ADEQ [facility] Laboratory - Hematology and Cell countsOrdered By: Edinson Irvin on 04-11-2023 Anisocytosis Ql (Bld) 1+ [facility] No Panel InformationOrdered By: Edinson Irvin on 04-11-2023 1+ [facility] Basophil percentageOrdered B y: Edinson Irvin on 04-06-2023 Basophil percentage 0 SEEN /hpf 0-5 [facility] Bilirubin Test strip Ql (U)O rdered By: Edinson Irvin on 04-06-2023 Bilirubin Ql (U) Negative Negative [facility] Culture, urineOrdered By: Gal Irvin on 04-06-2023 Bacteria identified Cx Nom (U) Culture exhibits no growth. [facility] Ketones Test strip Ql (U)Ord ered By: Edinson Irvin on 04-06-2023 Ketones Ql (U) Negative Negative [facility] Mucus LM Ql (Urine sed)Order ed By: Edinson Irvin on 04-06-2023 Mucus Ql (Urine sed) 0 SEEN /hpf [facility] Nitrite Test strip Ql (U)Ord ered By: Edinson Irvin on 04-06-2023 Nitrite Ql (U) Negative Negative [facility] No Panel InformationOrdered By: Edinson Irvin on 04-06-2023 Urine RBC 0 SEEN /hpf 0-5 [facility] 0 SEEN /hpf 0-5 [facility] Protein Test strip Ql (U)Ord ered By: Edinson Irvin on 04-06-2023 Protein Ql (U) 15 mg/dl Negative [facility] Review by pathologistOrdered By: Edinson Irvin on 04-06-2023 Pathologist review Donte (Unsp spec) [Interp] Reviewed [facility] Comment on above: Previous reported re sult: Dori urbano Edited by: CECY on 04/06/23:1217Normocytic anemia.MARKED Thrombocytopenia.Clinical correlation necessary.Landon Ontiveros M.D. 04/06/23 AMENDED REPORT 04/06/23 1217 PATH REV previously reported as: Dori urbano Squamous epithelial cells de tection in urine sediment by light microscopyOrdered By: Edinson Irvin on 04-06-2023 Epithelial cells.squamous LM Ql (Urine sed) 0-5 SEEN /hpf 5-10 [facility] Urine blood detectionOrdered By: Edinson Irvin on 04-06-2023 RBC Ql (U) 10 /ul Negative [facility] Urine clarityOrdered By: Edinson Irvin on 04-06-2023 Clarity (U) Clear Clear [facility] Urine color determinationOrd ered By: Edinson Irvin on 04-06-2023 Color (U) Yellow Yellow [facility] Urine glucose detectionOrder ed By: Edinson Irvin on 04-06-2023 Glucose Ql (U) Normal mg/dl Normal [facility] Urine leukocyte esterase det ection by dipstickOrdered By: Edinson Irvin on 04-06-2023 Leukocyte esterase Test strip Ql (U) Negative Negative [facility] Urine pHOrdered By: Edinson Irvin on 04-06-2023 pH (U) 6.0 [pH] 5.0 - 8.0 [facility] Urine sediment bacteria coun t by microscopy (number/high power field)Ordered By: Edinson Irvin on 04-06-2023 Bacteria LM.HPF (Urine sed) [#/Area] 0 /[HPF] None Seen [facility] Urine specific gravity measu rementOrdered By: Edinson Irvin on 04-06-2023 Specific gravity (U) [Rel density] 1.015 1.002-1.03 0 [facility] Urine urobilinogen measureme ntOrdered By: Edinson Irvin on 04-06-2023 Urobilinogen Ql (U) Normal mg/dl Normal [facility] Absolute lymphocyte countOrd ered By: Jasmyn Chan on 04-05-2023 Lymphocytes Auto (Unsp spec) [#/Vol] 0.61 10*3/uL 0.83-4.51 [facility] Automated lymphocyte count a s percentage of total leukocytesOrdered By: Jasmyn Chan on 04-05-2023 Lymphocytes/100 WBC Auto (Unsp spec) 10.5 % 19-41 [facility] Basophil percentageOrdered B y: Jasmyn Chan on 04-05-2023 Basophil percentage 9.6 g/dL 12.0-15.0 [facility] Basophils (Bld) [#/Vol] 5.8 10*3/uL 4.4-11.0 [facility] Basophils (Bld) [#/Vol] 4.4 10*3/uL 2.0-7.7 [facility] Basophils/100 WBC (Bld) 0.2 % 0-1 [facility] Basophils/100 WBC (Bld) 74.7 % 47-70 [facility] Basophils/100 WBC (Bld) 8.8 % 0-10 [facility] Basophils/100 WBC (Bld) 5.3 % 0-5 [facility] Eosinophils/100 WBC (Bld) 5.3 % 0-5 [facility] Hemoglobin (Bld) [Mass/Vol] 9.6 g/dL 12.0-15.0 [facility] Monocytes/100 WBC (Bld) 8.8 % 0-10 [facility] Neutrophils (Bld) [#/Vol] 4.4 10*3/uL 2.0-7.7 [facility] Neutrophils/100 WBC (Bld) 74.7 % 47-70 [facility] WBC (Bld) [#/Vol] 5.8 10*3/uL 4.4-11.0 [facility] Blood platelet adequacy dete ction by light microscopyOrdered By: Jasmyn Chan on 04-05-2023 Platelets LM Ql (Bld) MKD DEC ADEQ [facility] Determination of erythrocyte mean corpuscular volume (MCV)Ordered By: Jasmyn Chan on 04-05-2023 MCV (RBC) [Entitic vol] 85.0 fL 81-99 [facility] Erythrocyte distribution wid th ratioOrdered By: Jasmyn Chan on 04-05-2023 Erythrocyte distribution width (RBC) [Ratio] 22.8 % 11.6-14.6 [facility] Erythrocyte distribution wid th standard deviationOrdered By: Jasmyn Chan on 04-05-2023 Erythrocyte distribution width (RBC) [Entitic vol] 69.7 fL 35.1-43.9 [facility] Hematocrit Auto (Bld) [Volum e fraction]Ordered By: Jasmyn Chan on 04-05-2023 Hematocrit (Bld) [Volume fraction] 28.8 % 37-47 [facility] Immature granulocytes/100 WB C Auto (Bld)Ordered By: Jasmyn Chan on 04-05-2023 Immature granulocytes/100 WBC (Bld) 0.500 % 0.0-0.9 [facility] Comment on above: IG% - Immature Granu locytes (promyelocytes, myelocytes and metamyelocytes) > 1% indicates that a LEFT SHIFT is Present. Laboratory - Hematology and Cell countsOrdered By: Jasmyn Chan on 04-05-2023 Anisocytosis Ql (Bld) 2+ [facility] MCH (RBC) [Entitic mass] 28.3 pg 27.0-32.0 [facility] MCHC (RBC) [Mass/Vol] 33.3 g/dL 32-36 [facility] Nucleated RBC/100 WBC (Bld) [Ratio] 0 % 0-5 [facility] Platelet mean volume (Bld) [Entitic vol] 9.9 fL 6.2-12.0 [facility] Platelets (Bld) [#/Vol] 32 10*3/uL 150-450 [facility] No Panel InformationOrdered By: Jasmyn Chan on 04-05-2023 28.3 pg 27.0-32.0 [facility] 33.3 g/dL 32-36 [facility] 32 K/mm3 150-450 [facility] 9.9 fl 6.2-12.0 [facility] 0 % 0-5 [facility] 2+ [facility] RBC Auto (Bld) [#/Vol]Ordere d By: Jasmyn Chan on 04-05-2023 RBC (Bld) [#/Vol] 3.39 10*6/uL 4.2-5.4 [facility] Review by pathologistOrdered By: Jasmyn Chan on 04-05-2023 Pathologist review Donte (Unsp spec) [Interp] Reviewed [facility] Comment on above: Previous reported re sult: Dori urbano Edited by: [email or web address] on 04/05/23:1300Normocytic anemia.Marked Thrombocytopenia.Clinical correlation necessary.Landon Ontiveros M.D. 04/05/23 AMENDED REPORT 04/05/23 1300 PATH REV previously reported as: Dori urbano Blood manual differential co mment interpretation (narrative result)Ordered By: Jasmyn Chan on 04-04-2023 Manual differential comment Donte (Bld) [Interp] SCANNED [facility] Comment on above: LYMPHOPENIA NOTEDTHR OMBOCYTOPENIA NOTED Laboratory - CoagulationOrde red By: Laine Veras on 04-03-2023 INR Coag (Bld) [Relative time] 1.3 {INR} [facility] PT Coag (PPP) [Time] 16.2 s 11.7-14.9 [facility] No Panel InformationOrdered By: Laine Veras on 04-03-2023 16.2 SECONDS 11.7-14.9 [facility] 1.3 [facility] Basophil percentageOrdered B y: Alisa White on 04-02-2023 Basophil percentage 86 mg/dL 74-106 [facility] Basophil percentage 4.9 g/dL 6.4-8.2 [facility] Basophil percentage 1.70 mg/dL 0.20-1.00 [facility] Basophil percentage 134 mmol/L 136-145 [facility] Basophil percentage 3.6 mmol/L 3.5-5.1 [facility] Basophil percentage 102 mmol/L 98-107 [facility] Bilirubin [Mass/Vol] 1.70 mg/dL 0.20-1.00 [facility] Comment on above: For patients on eltr ombopag therapy, use of Dimension Bromide TBIL is not recommended. Chloride [Moles/Vol] 102 mmol/L 98-107 [facility] Glucose [Mass/Vol] 86 mg/dL 74-106 [facility] Potassium [Moles/Vol] 3.6 mmol/L 3.5-5.1 [facility] Protein [Mass/Vol] 4.9 g/dL 6.4-8.2 [facility] Sodium [Moles/Vol] 134 mmol/L 136-145 [facility] Laboratory - Chemistry and C hemistry - challengeOrdered By: Alisa Mathew on 04-02-2023 Albumin/Globulin [Mass ratio] 0.7 {ratio} 0.9-2.4 [facility] ALP [Catalytic activity/Vol] 84 U/L [facility] ALT [Catalytic activity/Vol] 35 U/L [facility] CO2 [Moles/Vol] 27.0 mmol/L 21.0-32.0 [facility] Globulin (S) [Mass/Vol] 2.9 g/dL 2.2-4.2 [facility] Urea nitrogen/Creatinine [Mass ratio] 25.1 mg/mg 10- [facility] No Panel InformationOrdered By: Alisa Mathew on 04-02-2023 Estimated Creatinine Clearance Calc 50.26 ml/min [facility] Estimated GFR (MDRD) Amer 149 mL/min >60 [facility] Comment on above: GFR Calc Estimated GFR (MDRD) Non-Af Amer 123 mL/min >60 [facility] Comment on above: Non- GFR Calc 123 mL/min >60 [facility] 149 mL/min >60 [facility] 50.26 ml/min [facility] 25.1 RATIO 10- [facility] 2.9 g/dL 2.2-4.2 [facility] 0.7 RATIO 0.9-2.4 [facility] 84 U/L [facility] 35 U/L [facility] 27.0 mmol/L 21.0-32.0 [facility] Serum or plasma calcium monica urement (mass/volume)Ordered By: Alisa Mathew on 04-02-2023 Calcium [Mass/Vol] 7.2 mg/dL 8.5-10.1 [facility] Serum or plasma creatinine m easurement (mass/volume)Ordered By: Alisa Mathew on 04-02-2023 Creatinine [Mass/Vol] 0.52 mg/dL 0.55-1.02 [facility] Comment on above: The validity of the calculated GFR & GFRAA in patients over 70 years has not been determined. Clinical correlation is essential. Serum or plasma urea nitroge n measurement (mass/volume)Ordered By: Alisa Mathew on 04-02-2023 Urea nitrogen [Mass/Vol] 13 mg/dL 7-18 [facility] Thin prep Papanicolaou smear with manual screeningOrdered By: Alisa Mathew on 04-02-2023 Thin prep Papanicolaou smear with manual screening 2.0 g/dL 3.2-5.0 [facility] Thin prep Papanicolaou smear with manual screening 20 U/L 15-37 [facility] Thin prep Papanicolaou smear with manual screening 5 5-15 [facility] Iron measurement (mass/mass) Ordered By: Alisa Mathew on 04-01-2023 Iron (Unsp spec) [Mass/Mass] 21 ug/dL 50-170 [facility] Laboratory - Chemistry and C hemistry - challengeOrdered By: Alisa Mathew on 04-01-2023 Ferritin [Mass/Vol] 268 ng/mL 8 [facility] Laboratory - Chemistry and C hemistry - challengeOrdered By: Laine Veras on 04-01-2023 Magnesium [Mass/Vol] 2.1 mg/dL 1.6-2.6 [facility] No Panel InformationOrdered By: Alisa Mathew on 04-01-2023 Total Iron Binding Capacity 243 ug/dL 250-450 [facility] 243 ug/dL 250-450 [facility] 268 ng/mL 8-252 [facility] No Panel InformationOrdered By: Laine Veras on 04-01-2023 2.1 mg/dL 1.6-2.6 [facility] Serum or plasma iron saturat ion measurement (mass fraction)Ordered By: Alisa Mathew on 04-01-2023 Iron saturation [Mass fraction] 8.6 % 15.0-55.0 [facility] Absolute lymphocyte countOrd ered By: Frederick Almazan on 03-31-2023 Lymphocytes Auto (Unsp spec) [#/Vol] 0.59 10*3/uL 0.83-4.51 [facility] Automated lymphocyte count a s percentage of total leukocytesOrdered By: Frederick Almazan on 03-31-2023 Lymphocytes/100 WBC Auto (Unsp spec) 3.0 % 19-41 [facility] Basophil percentageOrdered B y: Frederick Almazan on 03-31-2023 Basophil percentage 1.4 mmol/L 0.4-2.0 [facility] Basophils/100 WBC (Bld) 0.1 % 0-1 [facility] Chloride [Moles/Vol] 99 mmol/L 98-107 [facility] Eosinophils/100 WBC (Bld) 0.1 % 0-5 [facility] Glucose [Mass/Vol] 108 mg/dL 74-106 [facility] Comment on above: Fasting Glucose resu lt from 100 to 125 mg/dL suggests IMPAIRED HOMEOSTASIS per A.D.A. criteria. Hemoglobin (Bld) [Mass/Vol] 8.3 g/dL 12.0-15.0 [facility] Lactate [Moles/Vol] 1.4 mmol/L 0.4-2.0 [facility] Monocytes/100 WBC (Bld) 5.0 % 0-10 [facility] Neutrophils (Bld) [#/Vol] 17.6 10*3/uL 2.0-7.7 [facility] Neutrophils/100 WBC (Bld) 90.8 % 47-70 [facility] Potassium [Moles/Vol] 3.2 mmol/L 3.5-5.1 [facility] Sodium [Moles/Vol] 134 mmol/L 136-145 [facility] WBC (Bld) [#/Vol] 19.4 10*3/uL 4.4-11.0 [facility] Blood manual differential co mment interpretation (narrative result)Ordered By: Frederick Almazan on 03-31-2023 Manual differential comment Donte (Bld) [Interp] SCANNED [facility] Blood platelet adequacy dete ction by light microscopyOrdered By: Frederick Almazan on 03-31-2023 Platelets LM Ql (Bld) MOD DEC ADEQ [facility] Determination of erythrocyte mean corpuscular volume (MCV)Ordered By: Frederick Almazan on 03-31-2023 MCV (RBC) [Entitic vol] 86.8 fL 81-99 [facility] Erythrocyte distribution wid th ratioOrdered By: Frederick Almazan on 03-31-2023 Erythrocyte distribution width (RBC) [Ratio] 24.1 % 11.6-14.6 [facility] Erythrocyte distribution wid th standard deviationOrdered By: Frederick Almazan on 03-31-2023 Erythrocyte distribution width (RBC) [Entitic vol] 75.1 fL 35.1-43.9 [facility] Erythrocyte sedimentation ra teOrdered By: Laine Veras on 03-31-2023 ESR (Bld) [Velocity] 7 mm/h 0-30 [facility] Hematocrit Auto (Bld) [Volum e fraction]Ordered By: Frederick Almazan on 03-31-2023 Hematocrit (Bld) [Volume fraction] 24.9 % 37-47 [facility] Immature granulocytes/100 WB C Auto (Bld)Ordered By: Frederick Almazan on 03-31-2023 Immature granulocytes/100 WBC (Bld) 1.000 % 0.0-0.9 [facility] Comment on above: IG% - Immature Granu locytes (promyelocytes, myelocytes and metamyelocytes) > 1% indicates that a LEFT SHIFT is Present. Laboratory - Chemistry and C hemistry - challengeOrdered By: Frederick Almazan on 03-31-2023 CK [Catalytic activity/Vol] 125 U/L 26-192 [facility] CO2 [Moles/Vol] 29.0 mmol/L 21.0-32.0 [facility] Natriuretic peptide B (Bld) [Mass/Vol] 97.8 pg/mL 0-100 [facility] Urea nitrogen/Creatinine [Mass ratio] 41.2 mg/mg 10-20 [facility] Laboratory - CoagulationOrde red By: Frederick Almazan on 03-31-2023 INR Coag (Bld) [Relative time] 1.3 {INR} [facility] PT Coag (PPP) [Time] 16.0 s 11.7-14.9 [facility] Laboratory - Hematology and Cell countsOrdered By: Frederick Almazan on 03-31-2023 Anisocytosis Ql (Bld) 2+ [facility] MCH (RBC) [Entitic mass] 28.9 pg 27.0-32.0 [facility] MCHC (RBC) [Mass/Vol] 33.3 g/dL 32-36 [facility] Nucleated RBC/100 WBC (Bld) [Ratio] 0 % 0-5 [facility] Platelet mean volume (Bld) [Entitic vol] 10.4 fL 6.2-12.0 [facility] Platelets (Bld) [#/Vol] 95 10*3/uL 150-450 [facility] Macrocytes detectionOrdered By: Frederick Almazan on 03-31-2023 Macrocytes Ql (Bld) 1+ [facility] No Panel InformationOrdered By: Laine Veras on 03-31-2023 C-Reactive Protein Extended Range 35.90 mg/L 0.0-3.0 [facility] Comment on above: C-Reactive Protein ( CRP) provides useful information for thediagnosis, therapy and monitoring of inflammatory processesand associated diseases. For the evaluation of Relative Riskfor Cardiovascular Disease, a High Sensitivity CRP (HSCRP)should be ordered. 35.90 mg/L 0.0-3.0 [facility] No Panel InformationOrdered By: Frederick Almazan on 03-31-2023 Estimated Creatinine Clearance Calc 50.26 ml/min [facility] Estimated GFR (MDRD) Amer 96 mL/min >60 [facility] Comment on above: GFR Calc Estimated GFR (MDRD) Non-Af Amer 80 mL/min >60 [facility] Comment on above: Non- GFR Calc 125 U/L 26-192 [facility] 97.8 pg/mL 0-100 [facility] RBC Auto (Bld) [#/Vol]Ordere d By: Frederick Almazan on 03-31-2023 RBC (Bld) [#/Vol] 2.87 10*6/uL 4.2-5.4 [facility] Serum or plasma calcium monica urement (mass/volume)Ordered By: Frederick Almazan on 03-31-2023 Calcium [Mass/Vol] 7.8 mg/dL 8.5-10.1 [facility] Serum or plasma creatinine m easurement (mass/volume)Ordered By: Frederick Almazan on 03-31-2023 Creatinine [Mass/Vol] 0.75 mg/dL 0.55-1.02 [facility] Comment on above: The validity of the calculated GFR & GFRAA in patients over 70 years has not been determined. Clinical correlation is essential. Serum or plasma urea nitroge n measurement (mass/volume)Ordered By: Frederick Almazan on 03-31-2023 Urea nitrogen [Mass/Vol] 31 mg/dL 7-18 [facility] Thin prep Papanicolaou smear with manual screeningOrdered By: Frederick Almazan on 03-31-2023 Thin prep Papanicolaou smear with manual screening 1+ [facility] Thin prep Papanicolaou smear with manual screening 6 5-15 [facility] Absolute lymphocyte countOrd ered By: Etienne Thacker on 03-28-2023 Lymphocytes Auto (Unsp spec) [#/Vol] 1.04 10*3/uL 0.83-4.51 [facility] Automated lymphocyte count a s percentage of total leukocytesOrdered By: Etienne Thacker on 03-28-2023 Lymphocytes/100 WBC Auto (Unsp spec) 7.4 % 19-41 [facility] Basophil percentageOrdered B y: Etienne Thacker on 03-28-2023 Basophil percentage 9.6 g/dL 12.0-15.0 [facility] Basophil percentage 113 mg/dL 74-106 [facility] Basophil percentage 131 mmol/L 136-145 [facility] Basophil percentage 4.0 mmol/L 3.5-5.1 [facility] Basophil percentage 98 mmol/L 98-107 [facility] Basophils (Bld) [#/Vol] 14.1 10*3/uL 4.4-11.0 [facility] Basophils (Bld) [#/Vol] 11.3 10*3/uL 2.0-7.7 [facility] Basophils/100 WBC (Bld) 0.2 % 0-1 [facility] Basophils/100 WBC (Bld) 80.2 % 47-70 [facility] Basophils/100 WBC (Bld) 9.8 % 0-10 [facility] Basophils/100 WBC (Bld) 0.0 % 0-5 [facility] Chloride [Moles/Vol] 98 mmol/L 98-107 [facility] Eosinophils/100 WBC (Bld) 0.0 % 0-5 [facility] Glucose [Mass/Vol] 113 mg/dL 74-106 [facility] Comment on above: Fasting Glucose resu lt from 100 to 125 mg/dL suggests IMPAIRED HOMEOSTASIS per A.D.A. criteria. Hemoglobin (Bld) [Mass/Vol] 9.6 g/dL 12.0-15.0 [facility] Monocytes/100 WBC (Bld) 9.8 % 0-10 [facility] Neutrophils (Bld) [#/Vol] 11.3 10*3/uL 2.0-7.7 [facility] Neutrophils/100 WBC (Bld) 80.2 % 47-70 [facility] Potassium [Moles/Vol] 4.0 mmol/L 3.5-5.1 [facility] Sodium [Moles/Vol] 131 mmol/L 136-145 [facility] WBC (Bld) [#/Vol] 14.1 10*3/uL 4.4-11.0 [facility] Blood manual differential co mment interpretation (narrative result)Ordered By: Etienne Thacker on 03-28-2023 Manual differential comment Donte (Bld) [Interp] See comment [facility] Comment on above: 1+ ANISOCYTOSIS Determination of erythrocyte mean corpuscular volume (MCV)Ordered By: Etienne Thacker on 03-28-2023 MCV (RBC) [Entitic vol] 83.2 fL 81-99 [facility] Erythrocyte distribution wid th ratioOrdered By: Etienne Thacker on 03-28-2023 Erythrocyte distribution width (RBC) [Ratio] 22.1 % 11.6-14.6 [facility] Erythrocyte distribution wid th standard deviationOrdered By: Etienne Thacker on 03-28-2023 Erythrocyte distribution width (RBC) [Entitic vol] 52.7 fL 35.1-43.9 [facility] Hematocrit Auto (Bld) [Volum e fraction]Ordered By: Etienne Thacker on 03-28-2023 Hematocrit (Bld) [Volume fraction] 28.8 % 37-47 [facility] Immature granulocytes/100 WB C Auto (Bld)Ordered By: Etienne Thacker on 03-28-2023 Immature granulocytes/100 WBC (Bld) 2.400 % 0.0-0.9 [facility] Comment on above: IG% - Immature Granu locytes (promyelocytes, myelocytes and metamyelocytes) > 1% indicates that a LEFT SHIFT is Present. Laboratory - Chemistry and C hemistry - challengeOrdered By: Etienne Thacker on 03-28-2023 CO2 [Moles/Vol] 25.0 mmol/L 21.0-32.0 [facility] Natriuretic peptide B (Bld) [Mass/Vol] 162.5 pg/mL 0-100 [facility] Urea nitrogen/Creatinine [Mass ratio] 35.6 mg/mg 10-20 [facility] Laboratory - CoagulationOrde red By: Etienne Thacker on 03-28-2023 INR Coag (Bld) [Relative time] 3.1 {INR} [facility] PT Coag (PPP) [Time] 32.4 s 11.7-14.9 [facility] Laboratory - Hematology and Cell countsOrdered By: Etienne Thacker on 03-28-2023 MCH (RBC) [Entitic mass] 27.7 pg 27.0-32.0 [facility] MCHC (RBC) [Mass/Vol] 33.3 g/dL 32-36 [facility] Nucleated RBC/100 WBC (Bld) [Ratio] 0.1 % 0-5 [facility] Platelet mean volume (Bld) [Entitic vol] 10.3 fL 6.2-12.0 [facility] Platelets (Bld) [#/Vol] 170 10*3/uL 150-450 [facility] No Panel InformationOrdered By: Etienne Thacker on 03-28-2023 Estimated Creatinine Clearance Calc 39.81 ml/min [facility] Estimated GFR (MDRD) Amer 69 mL/min >60 [facility] Comment on above: GFR Calc Estimated GFR (MDRD) Non-Af Amer 57 mL/min >60 [facility] Comment on above: Non- GFR Calc Troponin I High Sensitivity 17 pg/mL 3.0-54.0 [facility] Comment on above: Please Note: New Aubrie t Units and Gender Specific Reference Ranges. For more information see Policy Stat Procedure Bromide High Sensitivity Troponin (TNIH) and attachments. 27.7 pg 27.0-32.0 [facility] 33.3 g/dL 32-36 [facility] 170 K/mm3 150-450 [facility] 10.3 fl 6.2-12.0 [facility] 0.1 % 0-5 [facility] 32.4 SECONDS 11.7-14.9 [facility] 3.1 [facility] 57 mL/min >60 [facility] 69 mL/min >60 [facility] 39.81 ml/min [facility] 35.6 RATIO 10-20 [facility] 17 pg/mL 3.0-54.0 [facility] 25.0 mmol/L 21.0-32.0 [facility] 162.5 pg/mL 0-100 [facility] RBC Auto (Bld) [#/Vol]Ordere d By: Etienne Thacker on 03-28-2023 RBC (Bld) [#/Vol] 3.46 10*6/uL 4.2-5.4 [facility] Serum or plasma calcium monica urement (mass/volume)Ordered By: Etienne Thacker on 03-28-2023 Calcium [Mass/Vol] 8.5 mg/dL 8.5-10.1 [facility] Serum or plasma creatinine m easurement (mass/volume)Ordered By: Etienne Thacker on 03-28-2023 Creatinine [Mass/Vol] 1.01 mg/dL 0.55-1.02 [facility] Comment on above: The validity of the calculated GFR & GFRAA in patients over 70 years has not been determined. Clinical correlation is essential. Serum or plasma urea nitroge n measurement (mass/volume)Ordered By: Etienne Thacker on 03-28-2023 Urea nitrogen [Mass/Vol] 36 mg/dL 7-18 [facility] Thin prep Papanicolaou smear with manual screeningOrdered By: Etienne Thacker on 03-28-2023 Thin prep Papanicolaou smear with manual screening 8 5-15 [facility] Absolute lymphocyte countOrd ered By: Laine Veras on 03-27-2023 Lymphocytes Auto (Unsp spec) [#/Vol] 1.08 10*3/uL 0.83-4.51 [facility] Automated lymphocyte count a s percentage of total leukocytesOrdered By: Laine Veras on 03-27-2023 Lymphocytes/100 WBC Auto (Unsp spec) 8.7 % 19-41 [facility] Basophil percentageOrdered B y: Laine Veras on 03-27-2023 Basophil percentage 7.9 g/dL 12.0-15.0 [facility] Basophil percentage 103 mg/dL 74-106 [facility] Basophil percentage 5.3 g/dL 6.4-8.2 [facility] Basophil percentage 1.70 mg/dL 0.20-1.00 [facility] Basophil percentage 132 mmol/L 136-145 [facility] Basophil percentage 4.1 mmol/L 3.5-5.1 [facility] Basophil percentage 101 mmol/L 98-107 [facility] Basophils (Bld) [#/Vol] 12.4 10*3/uL 4.4-11.0 [facility] Basophils (Bld) [#/Vol] 9.5 10*3/uL 2.0-7.7 [facility] Basophils/100 WBC (Bld) 0.2 % 0-1 [facility] Basophils/100 WBC (Bld) 76.4 % 47-70 [facility] Basophils/100 WBC (Bld) 10.7 % 0-10 [facility] Basophils/100 WBC (Bld) 0.0 % 0-5 [facility] Bilirubin [Mass/Vol] 1.70 mg/dL 0.20-1.00 [facility] Comment on above: For patients on eltr ombopag therapy, use of Dimension Bromide TBIL is not recommended. Chloride [Moles/Vol] 101 mmol/L 98-107 [facility] Eosinophils/100 WBC (Bld) 0.0 % 0-5 [facility] Glucose [Mass/Vol] 103 mg/dL 74-106 [facility] Comment on above: Fasting Glucose resu lt from 100 to 125 mg/dL suggests IMPAIRED HOMEOSTASIS per A.D.A. criteria. Hemoglobin (Bld) [Mass/Vol] 7.9 g/dL 12.0-15.0 [facility] Monocytes/100 WBC (Bld) 10.7 % 0-10 [facility] Neutrophils (Bld) [#/Vol] 9.5 10*3/uL 2.0-7.7 [facility] Neutrophils/100 WBC (Bld) 76.4 % 47-70 [facility] Potassium [Moles/Vol] 4.1 mmol/L 3.5-5.1 [facility] Protein [Mass/Vol] 5.3 g/dL 6.4-8.2 [facility] Sodium [Moles/Vol] 132 mmol/L 136-145 [facility] WBC (Bld) [#/Vol] 12.4 10*3/uL 4.4-11.0 [facility] Blood manual differential co mment interpretation (narrative result)Ordered By: Laine Veras on 03-27-2023 Manual differential comment Donte (Bld) [Interp] SCANNED [facility] Determination of erythrocyte mean corpuscular volume (MCV)Ordered By: Laine Veras on 03-27-2023 MCV (RBC) [Entitic vol] 85.0 fL 81-99 [facility] Erythrocyte distribution wid th ratioOrdered By: Laine Veras on 03-27-2023 Erythrocyte distribution width (RBC) [Ratio] 20.5 % 11.6-14.6 [facility] Erythrocyte distribution wid th standard deviationOrdered By: Laine Veras on 03-27-2023 Erythrocyte distribution width (RBC) [Entitic vol] 51.5 fL 35.1-43.9 [facility] Hematocrit Auto (Bld) [Volum e fraction]Ordered By: Laine Veras on 03-27-2023 Hematocrit (Bld) [Volume fraction] 24.4 % 37-47 [facility] Immature granulocytes/100 WB C Auto (Bld)Ordered By: Laine Veras on 03-27-2023 Immature granulocytes/100 WBC (Bld) 4.000 % 0.0-0.9 [facility] Comment on above: IG% - Immature Granu locytes (promyelocytes, myelocytes and metamyelocytes) > 1% indicates that a LEFT SHIFT is Present. Laboratory - Chemistry and C hemistry - challengeOrdered By: Laine Veras on 03-27-2023 Albumin/Globulin [Mass ratio] 0.8 {ratio} 0.9-2.4 [facility] ALP [Catalytic activity/Vol] 170 U/L 45-117 [facility] ALT [Catalytic activity/Vol] 65 U/L 13-56 [facility] CO2 [Moles/Vol] 24.0 mmol/L 21.0-32.0 [facility] Globulin (S) [Mass/Vol] 3.0 g/dL 2.2-4.2 [facility] Magnesium [Mass/Vol] 2.6 mg/dL 1.6-2.6 [facility] Urea nitrogen/Creatinine [Mass ratio] 29.9 mg/mg 10-20 [facility] Laboratory - CoagulationOrde red By: Laine Veras on 03-27-2023 INR Coag (Bld) [Relative time] 3.9 {INR} [facility] PT Coag (PPP) [Time] 38.9 s 11.7-14.9 [facility] Laboratory - Hematology and Cell countsOrdered By: Laine Veras on 03-27-2023 Anisocytosis Ql (Bld) 2+ [facility] MCH (RBC) [Entitic mass] 27.5 pg 27.0-32.0 [facility] MCHC (RBC) [Mass/Vol] 32.4 g/dL 32-36 [facility] Nucleated RBC/100 WBC (Bld) [Ratio] 0.2 % 0-5 [facility] Platelet mean volume (Bld) [Entitic vol] 10.2 fL 6.2-12.0 [facility] Platelets (Bld) [#/Vol] 134 10*3/uL 150-450 [facility] No Panel InformationOrdered By: Laine Veras on 03-27-2023 Estimated Creatinine Clearance Calc 46.22 ml/min [facility] Estimated GFR (MDRD) Amer 82 mL/min >60 [facility] Comment on above: GFR Calc Estimated GFR (MDRD) Non-Af Amer 67 mL/min >60 [facility] Comment on above: Non- GFR Calc 27.5 pg 27.0-32.0 [facility] 32.4 g/dL 32-36 [facility] 134 K/mm3 150-450 [facility] 10.2 fl 6.2-12.0 [facility] 0.2 % 0-5 [facility] 2+ [facility] 38.9 SECONDS 11.7-14.9 [facility] 3.9 [facility] 67 mL/min >60 [facility] 82 mL/min >60 [facility] 46.22 ml/min [facility] 29.9 RATIO 10-20 [facility] 3.0 g/dL 2.2-4.2 [facility] 0.8 RATIO 0.9-2.4 [facility] 170 U/L 45-117 [facility] 65 U/L 13-56 [facility] 2.6 mg/dL 1.6-2.6 [facility] 24.0 mmol/L 21.0-32.0 [facility] RBC Auto (Bld) [#/Vol]Ordere d By: Laine Veras on 03-27-2023 RBC (Bld) [#/Vol] 2.87 10*6/uL 4.2-5.4 [facility] [facility] Serum or plasma calcium monica urement (mass/volume)Ordered By: Laine Veras on 03-27-2023 Calcium [Mass/Vol] 7.7 mg/dL 8.5-10.1 [facility] Serum or plasma creatinine m easurement (mass/volume)Ordered By: Laine Veras on 03-27-2023 Creatinine [Mass/Vol] 0.87 mg/dL 0.55-1.02 [facility] Comment on above: The validity of the calculated GFR & GFRAA in patients over 70 years has not been determined. Clinical correlation is essential. Serum or plasma thyroid stim ulating hormone (TSH) measurement (units/volume)Ordered By: Laine Veras on 03-27-2023 TSH Qn 0.76 uIU/mL 0.358-3.74 [facility] Serum or plasma urea nitroge n measurement (mass/volume)Ordered By: Laine Veras on 03-27-2023 Urea nitrogen [Mass/Vol] 26 mg/dL 7-18 [facility] Thin prep Papanicolaou smear with manual screeningOrdered By: Laine Veras on 03-27-2023 Thin prep Papanicolaou smear with manual screening 2.3 g/dL 3.2-5.0 [facility] Thin prep Papanicolaou smear with manual screening 27 U/L 15-37 [facility] Thin prep Papanicolaou smear with manual screening 7 5-15 [facility] Absolute lymphocyte countOrd ered By: Martín Cornejo on 03-26-2023 Lymphocytes Auto (Unsp spec) [#/Vol] 1.06 10*3/uL 0.83-4.51 [facility] Automated lymphocyte count a s percentage of total leukocytesOrdered By: Martín Cornejo on 03-26-2023 Lymphocytes/100 WBC Auto (Unsp spec) 6.3 % 19-41 [facility] Basophil percentageOrdered B y: Martín Cornejo on 03-26-2023 Basophil percentage 0 SEEN /hpf 0-5 [facility] Basophils/100 WBC (Bld) 0.1 % 0-1 [facility] Chloride [Moles/Vol] 101 mmol/L 98-107 [facility] Eosinophils/100 WBC (Bld) 0.0 % 0-5 [facility] Glucose [Mass/Vol] 111 mg/dL 74-106 [facility] Comment on above: Fasting Glucose resu lt from 100 to 125 mg/dL suggests IMPAIRED HOMEOSTASIS per A.D.A. criteria. Hemoglobin (Bld) [Mass/Vol] 8.9 g/dL 12.0-15.0 [facility] Monocytes/100 WBC (Bld) 9.6 % 0-10 [facility] Neutrophils (Bld) [#/Vol] 13.6 10*3/uL 2.0-7.7 [facility] Neutrophils/100 WBC (Bld) 80.3 % 47-70 [facility] Potassium [Moles/Vol] 3.6 mmol/L 3.5-5.1 [facility] Sodium [Moles/Vol] 135 mmol/L 136-145 [facility] WBC (Bld) [#/Vol] 16.9 10*3/uL 4.4-11.0 [facility] Bilirubin Test strip Ql (U)O rdered By: Martín Cornejo on 03-26-2023 Bilirubin Ql (U) Negative Negative [facility] Blood manual differential co mment interpretation (narrative result)Ordered By: Martín Cornejo on 03-26-2023 Manual differential comment Donte (Bld) [Interp] SCANNED [facility] Determination of erythrocyte mean corpuscular volume (MCV)Ordered By: Martín Cornejo on 03-26-2023 MCV (RBC) [Entitic vol] 81.5 fL 81-99 [facility] Erythrocyte distribution wid th ratioOrdered By: Martín Cornejo on 03-26-2023 Erythrocyte distribution width (RBC) [Ratio] 19.6 % 11.6-14.6 [facility] Erythrocyte distribution wid th standard deviationOrdered By: Martín Cornejo on 03-26-2023 Erythrocyte distribution width (RBC) [Entitic vol] 48.8 fL 35.1-43.9 [facility] Hematocrit Auto (Bld) [Volum e fraction]Ordered By: Martín Cornejo on 03-26-2023 Hematocrit (Bld) [Volume fraction] 26.8 % 37-47 [facility] Immature granulocytes/100 WB C Auto (Bld)Ordered By: Martín Cornejo on 03-26-2023 Immature granulocytes/100 WBC (Bld) 3.700 % 0.0-0.9 [facility] Comment on above: IG% - Immature Granu locytes (promyelocytes, myelocytes and metamyelocytes) > 1% indicates that a LEFT SHIFT is Present. International normalized rat io (INR) calculationOrdered By: Martín Cornejo on 03-26-2023 INR Coag (PPP) [Relative time] 3.2 {INR} [facility] Ketones Test strip Ql (U)Ord ered By: Martín Cornejo on 03-26-2023 Ketones Ql (U) Negative Negative [facility] Laboratory - Chemistry and C hemistry - challengeOrdered By: Martín Cornejo on 03-26-2023 CO2 [Moles/Vol] 27.0 mmol/L 21.0-32.0 [facility] Natriuretic peptide B (Bld) [Mass/Vol] 322.3 pg/mL 0-100 [facility] Urea nitrogen/Creatinine [Mass ratio] 34.8 mg/mg 10-20 [facility] Laboratory - CoagulationOrde red By: Martín Cornejo on 03-26-2023 PT Coag (PPP) [Time] 33.3 s 11.7-14.9 [facility] Laboratory - Hematology and Cell countsOrdered By: Martín Cornejo on 03-26-2023 MCH (RBC) [Entitic mass] 27.1 pg 27.0-32.0 [facility] MCHC (RBC) [Mass/Vol] 33.2 g/dL 32-36 [facility] Nucleated RBC/100 WBC (Bld) [Ratio] 0.1 % 0-5 [facility] Platelets (Bld) [#/Vol] 169 10*3/uL 150-450 [facility] Mucus LM Ql (Urine sed)Order ed By: Martín Cornejo on 03-26-2023 Mucus Ql (Urine sed) 0 SEEN /hpf [facility] Nitrite Test strip Ql (U)Ord ered By: Martín Cornejo on 03-26-2023 Nitrite Ql (U) Negative Negative [facility] No Panel InformationOrdered By: Martín Cornejo on 03-26-2023 Urine RBC 0 SEEN /hpf 0-5 [facility] 0 SEEN /hpf 0-5 [facility] Estimated Creatinine Clearance Calc 49.15 ml/min [facility] Estimated GFR (MDRD) Amer 79 mL/min >60 [facility] Comment on above: GFR Calc Estimated GFR (MDRD) Non-Af Amer 66 mL/min >60 [facility] Comment on above: Non- GFR Calc Troponin I High Sensitivity 20 pg/mL 3.0-54.0 [facility] Comment on above: Please Note: New Aubrie t Units and Gender Specific Reference Ranges. For more information see Policy Stat Procedure Bromide High Sensitivity Troponin (TNIH) and attachments. 20 pg/mL 3.0-54.0 [facility] 322.3 pg/mL 0-100 [facility] Platelet mean volume Nicholas-Ec ker (Bld) [Entitic vol]Ordered By: Martín Cornejo on 03-26-2023 Platelet mean volume (Bld) [Entitic vol] 9.9 fL 6.2-12.0 [facility] Protein Test strip Ql (U)Ord ered By: Martín Cornejo on 03-26-2023 Protein Ql (U) 30 mg/dl Negative [facility] RBC Auto (Bld) [#/Vol]Ordere d By: Martín Cornejo on 03-26-2023 RBC (Bld) [#/Vol] 3.29 10*6/uL 4.2-5.4 [facility] Review by pathologistOrdered By: Martín Cornejo on 03-26-2023 Pathologist review Donte (Unsp spec) [Interp] Dori urbano [facility] Pathologist review Donte (Unsp spec) [Interp] Reviewed [facility] Comment on above: Previous reported re sult: Dori urbano Edited by: RGOOD on 03/27/23:1255Neutrophilic leukocytosis with left shift.Normocytic anemia.Clinical correlation necessary.Landon Ontiveros M.D. 03/27/23 AMENDED REPORT 03/27/23 1255 PATH REV previously reported as: Dori urbano Serum or plasma calcium monica urement (mass/volume)Ordered By: Martín Cornejo on 03-26-2023 Calcium [Mass/Vol] 8.1 mg/dL 8.5-10.1 [facility] Serum or plasma creatinine m easurement (mass/volume)Ordered By: Martín Cornejo on 03-26-2023 Creatinine [Mass/Vol] 0.89 mg/dL 0.55-1.02 [facility] Comment on above: The validity of the calculated GFR & GFRAA in patients over 70 years has not been determined. Clinical correlation is essential. Serum or plasma urea nitroge n measurement (mass/volume)Ordered By: Martín Cornejo on 03-26-2023 Urea nitrogen [Mass/Vol] 31 mg/dL 7-18 [facility] Squamous epithelial cells de tection in urine sediment by light microscopyOrdered By: Martín Cornejo on 03-26-2023 Epithelial cells.squamous LM Ql (Urine sed) 0 SEEN /hpf 5-10 [facility] Thin prep Papanicolaou smear with manual screeningOrdered By: Martín Cornejo on 03-26-2023 Thin prep Papanicolaou smear with manual screening 7 5-15 [facility] Urine blood detectionOrdered By: Martín Cornejo on 03-26-2023 RBC Ql (U) 10 /ul Negative [facility] Urine clarityOrdered By: Ryder Cornejo on 03-26-2023 Clarity (U) Clear Clear [facility] Urine color determinationOrd ered By: Martín Cornejo on 03-26-2023 Color (U) Yellow Yellow [facility] Urine glucose detectionOrder ed By: Martín Cornejo on 03-26-2023 Glucose Ql (U) Normal mg/dl Normal [facility] Urine leukocyte esterase det ection by dipstickOrdered By: Martín Cornejo on 03-26-2023 Leukocyte esterase Test strip Ql (U) Negative Negative [facility] Urine pHOrdered By: Martín rebolledo on 03-26-2023 pH (U) 6.5 [pH] 5.0 - 8.0 [facility] Urine sediment bacteria coun t by microscopy (number/high power field)Ordered By: Martín Cornejo on 03-26-2023 Bacteria LM.HPF (Urine sed) [#/Area] 0 /[HPF] None Seen [facility] Urine specific gravity measu rementOrdered By: Martín Cornejo on 03-26-2023 Specific gravity (U) [Rel density] 1.015 1.002-1.03 0 [facility] Urine urobilinogen measureme ntOrdered By: Martín Cornejo on 03-26-2023 Urobilinogen Ql (U) Normal mg/dl Normal [facility] Basic metabolic 2000 panelon 03-25-2023 Anion gap [Moles/Vol] 11 mmol/L Normal 9-18 [facility] Comment on above: Order Comment: Speci men Type: BLOOD SPECIMEN Ordering Facility: [facility] Address: [address] [place] [address] Performed By: #### 2 4321-2 #### [facility] CLIA [id number] [address] [place] [address] [place] Calcium [Mass/Vol] 8.6 mg/dL Normal 8.5-10.2 [facility] Comment on above: Order Comment: Speci men Type: BLOOD SPECIMEN Ordering Facility: [facility] Address: [address] [place] [address] Performed By: #### 2 4321-2 #### [facility] CLIA [id number] [address] [place] [address] [place] Chloride [Moles/Vol] 96 mmol/L Low 97-105 [facility] Comment on above: Order Comment: Speci men Type: BLOOD SPECIMEN Ordering Facility: [facility] Address: [address] [place] [address] Performed By: #### 2 4321-2 #### [facility] CLIA [id number] [address] CO2 [Moles/Vol] 23 mmol/L Normal 22-30 [facility] Comment on above: Order Comment: Speci men Type: BLOOD SPECIMEN Ordering Facility: [facility] Address: [address] [place] [address] Performed By: #### 2 4321-2 #### [facility] CLIA [id number] [address] Creatinine [Mass/Vol] 0.84 mg/dL Normal 0.58-0.96 [facility] Comment on above: Order Comment: Speci men Type: BLOOD SPECIMEN Ordering Facility: [facility] Address: [address] [place] [address] Performed By: #### 2 4321-2 #### [facility] CLIA [id number] [address] Creatinine and Glomerular filtration rate.predicted panel (S/P/Bld) 73 mL/min/1.73m??? Normal >=60 [facility] Comment on above: Order Comment: Speci men Type: BLOOD SPECIMEN Ordering Facility: [facility] Address: [address] [place] [address] Result Comment: Meaghan mated Glomerular Filtration Rate [...] GFR. Performed By: #### 2 4321-2 #### [facility] CLIA [id number] [address] OF [facility] Glucose [Mass/Vol] 134 mg/dL High 74-99 [facility] Comment on above: Order Comment: Speci men Type: BLOOD SPECIMEN Ordering Facility: [facility] Address: [address] [place] [address] Result Comment: The [place] [employer] (ADA) provides guidance for cutoff [...] Standards of Medical Care in Diabetes 2016, [employer] [employer]. Diabetes Care. 2016.39(Suppl 1). Performed By: #### 2 4321-2 #### [facility] CLIA [id number] [address] STATES OF [facility] Potassium [Moles/Vol] 3.9 mmol/L Normal 3.7-5.1 [facility] Comment on above: Order Comment: Renay adkins Type: BLOOD SPECIMEN Ordering Facility: [facility] Address: [address] [place] [address] Performed By: #### 2 4321-2 #### [facility] CLIA [id number] [address] Sodium [Moles/Vol] 130 mmol/L Low 136-144 [facility] Comment on above: Order Comment: Renay adkins Type: BLOOD SPECIMEN Ordering Facility: [facility] Address: [address] [place] [address] Performed By: #### 2 4321-2 #### [facility] CLIA [id number] [address] [place] Urea nitrogen [Mass/Vol] 27 mg/dL High 7-21 [facility] Comment on above: Order Comment: Renay adkins Type: BLOOD SPECIMEN Ordering Facility: [facility] Address: [address] [place] [address] Performed By: #### 2 4321-2 #### [facility] CLIA [id number] [address] OF [place] CBC panel Auto (Bld)on 03-25 Erythrocyte distribution width (RBC) [Ratio] 17.8 % High 11.5-15.0 [facility] Comment on above: Order Comment: Speci men Type: BLOOD SPECIMEN Ordering Facility: [facility] Address: [address] [place] [address] Performed By: #### 1 4196-0, 11216-4 #### [facility] CLIA [id number] [address] STATES OF [facility] Hematocrit (Bld) [Volume fraction] 26.8 % Low 36.0-46.0 [facility] Comment on above: Order Comment: Speci men Type: BLOOD SPECIMEN Ordering Facility: [facility] Address: [address] [place] [address] Performed By: #### 1 4196-0, 40911-3 #### [facility] CLIA [id number] [address] [place] [address] OF [facility] Hemoglobin (Bld) [Mass/Vol] 8.9 g/dL Low 11.5-15.5 [facility] Comment on above: Order Comment: Speci men Type: BLOOD SPECIMEN Ordering Facility: [facility] Address: [address] [place] [address] Performed By: #### 1 4196-0, 58935-9 #### [facility] CLIA [id number] [address] [place] [address] [place] [facility] MCH (RBC) [Entitic mass] 27.1 pg Normal 26.0-34.0 [facility] Comment on above: Order Comment: Speci men Type: BLOOD SPECIMEN Ordering Facility: [facility] Address: [address] [place] [address] Performed By: #### 1 4196-0, 42266-0 #### [facility] CLIA [id number] [address] [place] [address] [place] MCHC (RBC) [Mass/Vol] 33.2 g/dL Normal 30.5-36.0 [facility] Comment on above: Order Comment: Speci men Type: BLOOD SPECIMEN Ordering Facility: [facility] Address: [address] [place] [address] Performed By: #### 1 4196-0, 54180-9 #### [facility] CLIA [id number] [address] MCV (RBC) [Entitic vol] 81.5 fL Normal 80.0-100.0 [facility] Comment on above: Order Comment: Speci men Type: BLOOD SPECIMEN Ordering Facility: [facility] Address: [address] [place] [address] Performed By: #### 1 4196-0, 60281-5 #### [facility] CLIA [id number] [address] OF [place] Nucleated RBC (Bld) [#/Vol] 0.04 10*3/uL High <0.01 [facility] Comment on above: Order Comment: Speci men Type: BLOOD SPECIMEN Ordering Facility: [facility] Address: [address] [place] [address] Performed By: #### 1 4196-0, 71805-2 #### [facility] CLIA [id number] [address] Platelet mean volume (Bld) [Entitic vol] 10.0 fL Normal 9.0-12.7 [facility] Comment on above: Order Comment: Speci men Type: BLOOD SPECIMEN Ordering Facility: [facility] Address: [address] [place] [address] Performed By: #### 1 4196-0, 26422-9 #### [facility] CLIA [id number] [address] Platelets (Bld) [#/Vol] 172 10*3/uL Normal 150-400 [facility] Comment on above: Order Comment: Speci men Type: BLOOD SPECIMEN Ordering Facility: [facility] Address: [address] [place] [address] Performed By: #### 1 4196-0, 49296-7 #### [facility] CLIA [id number] [address] [place] [address] [place] RBC (Bld) [#/Vol] 3.29 10*6/uL Low 3.90-5.20 [facility] Comment on above: Order Comment: Speci men Type: BLOOD SPECIMEN Ordering Facility: [facility] Address: [address]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 [facility] Comment on above: Order Comment: Renay adkins Type: BLOOD SPECIMEN Ordering Facility: [facility] Address: [address] [place] [address] Performed By: #### 1 4196-0, 02808-4 #### [facility] CLIA [id number] [address] OF [facility] THERAPY NTon 03-23-2023 THERAPY NT HNO ID: [id number] Author: UMANG EASLEY, PT Service: Physical Therapy Author Type: Physical Therapist Type: Therapy (PT/OT/Speech/Resp) Filed: 03/23/2023 15:14 Note Text: Physical Therapy Evaluation Summary SERVICE DATE: 03/23/2023 SERVICE TIME: 1340 to 1355 ROOM: [place] [address] PT 6 Clicks Score: 22 DISCHARGE RECOMMENDATIONS Home ASSESSMENT Response to Therapy Interventions: Good Participation in Activities PRECAUTIONS CURRENT HOSPITAL COURSE presented with hemoptysis, found to be COVID positive at [facility]. Imaging showed intraperitoneal air and pneumatosis intestinalia, [...] Skilled Need TREATMENT INTERVENTIONS Evaluation $ Evaluation-Low (10896) Billed Units: 1 unit Skilled Treatment Time [...] March 23, 2023 TIME: 3:13 PM Normal [facility] THERAPY NT HNO ID: [id number] Author: LORI SHORT, OTR/L Service: Occupational Therapy Author Type: Occupational Therapist Type: Therapy (PT/OT/Speech/Resp) Filed: 03/23/2023 11:43 Note Text: Occupational Therapy Evaluation Summary SERVICE DATE: 03/23/2023 SERVICE TIME: 08 to 921 ROOM: [place] [address] OT 6 Clicks Score: 22 DISCHARGE RECOMMENDATIONS [...] daily living (ADL) TREATMENT INTERVENTIONS Evaluation, Self Intermediate Management (51475) Timed Code Treatment (minutes): 8 Skilled Treatment Time (minutes): 23 $ Evaluation - Low (04081) Billed Units: 1 unit Self Intermediate Management (91122) Treatment Minutes: 8 $ Self Intermediate Management (30332) Billed Units: 1 unit TRAINING AND EDUCATION [...] March 23, 2023 TIME: 11:40 AM Normal [facility] ALLIED HEALTHon 03-22-2023 ALLIED HEALTH HNO ID: [id number] Author: TIMUR HERNANDEZ RT(Ade) Service: Radiology Author Type: Bag Press Operator Type: Allied Health Filed: 03/22/2023 09:43 Note [...] PATIENT PRESENTS WITH AN IMPLANTABLE OR ATTACHED TAPE CALENDER: No ALLERGIES: Reviewed and unchanged CONTRAST ALLERGY: [...] March 22, 2023 TIME: 9:43 AM Normal [facility] CBC panel Auto (Bld)on 03-22 Erythrocyte distribution width (RBC) [Ratio] 16.0 % High 11.5-15.0 [facility] Comment on above: Order Comment: Renay adkins Type: BLOOD SPECIMEN Ordering Facility: [facility] Address: [address] [place] [address] Performed By: #### 1 4196-0, 65252-4 #### [facility] CLIA [id number] [address] [place] [address] [place] Hematocrit (Bld) [Volume fraction] 23.1 % Low 36.0-46.0 [facility] Comment on above: Order Comment: Renay adkins Type: BLOOD SPECIMEN Ordering Facility: [facility] Address: [address] [place] [address] Performed By: #### 1 4196-0, 09176-2 #### [facility] CLIA [id number] [address] OF [facility] Hemoglobin (Bld) [Mass/Vol] 8.1 g/dL Low 11.5-15.5 [facility] Comment on above: Order Comment: Speci men Type: BLOOD SPECIMEN Ordering Facility: [facility] Address: [address] [place] [address] Performed By: #### 1 4196-0, 93715-0 #### [facility] CLIA [id number] [address] [place] [address] MCH (RBC) [Entitic mass] 27.4 pg Normal 26.0-34.0 [facility] Comment on above: Order Comment: Speci men Type: BLOOD SPECIMEN Ordering Facility: [facility] Address: [address] [place] [address] Performed By: #### 1 4196-0, 10560-9 #### [facility] CLIA [id number] [address] [place] [address] MCHC (RBC) [Mass/Vol] 35.1 g/dL Normal 30.5-36.0 [facility] Comment on above: Order Comment: Speci men Type: BLOOD SPECIMEN Ordering Facility: [facility] Address: [address] [place] [address] Performed By: #### 1 4196-0, 01483-3 #### [facility] CLIA [id number] [address] [place] [address] MCV (RBC) [Entitic vol] 78.0 fL Low 80.0-100.0 [facility] Comment on above: Order Comment: Speci men Type: BLOOD SPECIMEN Ordering Facility: [facility] Address: [address] [place] [address] Performed By: #### 1 4196-0, 26449-7 #### [facility] CLIA [id number] [address] [place] [address] [place] Nucleated RBC (Bld) [#/Vol] 10*3/uL Normal <0.01 [facility] Comment on above: Order Comment: Speci men Type: BLOOD SPECIMEN Ordering Facility: [facility] Address: [address] [place] [address] Performed By: #### 1 4196-0, 78078-2 #### [facility] CLIA [id number] [address] [place] [address] [place] Platelet mean volume (Bld) [Entitic vol] 10.3 fL Normal 9.0-12.7 [facility] Comment on above: Order Comment: Speci men Type: BLOOD SPECIMEN Ordering Facility: [facility] Address: [address] [place] [address] Performed By: #### 1 4196-0, 41638-6 #### [facility] CLIA [id number] [address] [place] Platelets (Bld) [#/Vol] 148 10*3/uL Low 150-400 [facility] Comment on above: Order Comment: Speci men Type: BLOOD SPECIMEN Ordering Facility: [facility] Address: [address] [place] [address] Performed By: #### 1 4196-0, 79854-4 #### [facility] CLIA [id number] [address] [place] RBC (Bld) [#/Vol] 2.96 10*6/uL Low 3.90-5.20 [facility] Comment on above: Order Comment: Speci men Type: BLOOD SPECIMEN Ordering Facility: [facility] Address: [address] [place] [address] Performed By: #### 1 4196-0, 43163-7 #### [facility] CLIA [id number] [address] [place] WBC (Bld) [#/Vol] 10.53 10*3/uL Normal 3.70-11.00 [facility] Comment on above: Order Comment: Speci men Type: BLOOD SPECIMEN Ordering Facility: [facility] Address: [address], [place] [id number] Performed By: #### 1 4196-0, 51077-4 #### [facility] CLIA [id number] [address] [place] [address] [place] CONSULT PROGon 03-22-2023 CONSULT PROG HNO ID: [id number] Author: MAGAN VILLAFUERTE DO Service: Pulmonary Disease [...] enzymes), -GERD, -HTN, -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 INR on arrival to [place] was 9. She given Vitamin K and transferred here. 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 No sustained Rx with Amiodarone, Nitrofurantoin, cancer chemotherapy. Smoking h/o: 55-dhwo-mloe former smoker, quit in 1989. Late was [...] factor (HCC) 03/07/2015 Dr. Hurley ([facility]) Unspecified hemorrhoids without mention of complication [...] SPINE FUSN,POST INTERBODY 2012 Dr. Armando at [facility]. Diskectomy and laminectomy PAST SURGICAL HISTORY OF 03/07/1999 removal facial lesion PAST SURGICAL HISTORY OF 08/17/2014 excision soft tissue mass left index finger TONSILLECTOMY PRIMARY/SECONDARY TRANSCATH RETRIEVAL,PERCUT 12/28/2006 medication ALL (more content not included)... Normal [facility] CT ABD/PEL W IVCONon 024 CT ABD/PEL W IVCON * * *Final Report* * * * * * SEE BOTTOM OF REPORT FOR ADDENDED TEXT * * * DATE OF EXAM: Mar 22 2023 9:46AM [facility] 0530 - CT ABD/PEL W IVCON / [...] on 3:17. Stable dating back to 04/04/2018. Fish And Wildlife Warden (topogram) images: No significant additional findings. IMPRESSION: [...] be communicated with the ordering provider via [employer] staff message or phone message by [employer] Services within 2 business days of report finalization. ========= Algorithms for management of incidental imaging findings can be found on the [facility] Intranet Sharepoint site at: [email or web address]/document [email or web address] %20Incidental%20Findi ngs%20at%20Imaging/Forms/Al lItems.aspx Cement Loader: KRYSTAL Transcribe Date/Time: Mar 22 2023 10:59A Dictated by : MIRIAN CHENEY MD This examination was interpreted and the report reviewed and electronically signed by: MIRIAN CHENEY MD on Mar 22 2023 10:43AM EST This document has been addended by: MIRIAN CHENEY MD on Mar 22 2023 11:00AM EST [id number] Normal [facility] Comp Metab 2000 Pnl SerPlon 03-22-2023 Bilirubin [Mass/Vol] 0.8 mg/dL Normal 0.2-1.3 [facility] Comment on above: Order Comment: Speci men Type: BLOOD SPECIMENOrdering Facility: [facility] Address: [address] [place] [address] Performed By: #### 2 4325-3, 84617-9 ####[facility] [id number] [place] [address] [place] Comprehensive metabolic 2000 panelon 03-22-2023 Albumin [Mass/Vol] 2.7 g/dL Low 3.9-4.9 [facility] Comment on above: Order Comment: Speci men Type: BLOOD SPECIMENOrdering Facility: [facility] Address: [address] [place] [address] Performed By: #### 2 4325-3, 07793-6 ####[facility] [id number] [address] STATES OF [facility] ALP [Catalytic activity/Vol] 201 U/L High 34-123 [facility] Comment on above: Order Comment: Speci men Type: BLOOD SPECIMENOrdering Facility: [facility] Address: [address] [place] [address] Performed By: #### 2 4325-3, 58364-2 ####[facility] [id number] [place] [address] [place] ALT With P-5'-P [Catalytic activity/Vol] 54 U/L High 7-38 [facility] Comment on above: Order Comment: Speci men Type: BLOOD SPECIMENOrdering Facility: [facility] Address: [address] [place] [address] Performed By: #### 2 4325-3, 35484-8 ####[facility] [id number] [place] [address] [place] Anion gap [Moles/Vol] 8 mmol/L Low 9-18 [facility] Comment on above: Order Comment: Speci men Type: BLOOD SPECIMENOrdering Facility: [facility] Address: [address] [place] [address] Performed By: #### 2 4325-3, 26626-9 ####[facility] [id number] [place] [address] [place] AST With P-5'-P [Catalytic activity/Vol] 33 U/L Normal 13-35 [facility] Comment on above: Order Comment: Speci men Type: BLOOD SPECIMENOrdering Facility: [facility] Address: [address] [place] [address] Performed By: #### 2 4325-3, 26329-0 ####[facility] [id number] [place] [address] [place] Calcium [Mass/Vol] 8.8 mg/dL Normal 8.5-10.2 [facility] Comment on above: Order Comment: Speci men Type: BLOOD SPECIMENOrdering Facility: [facility] Address: [address] [place] [address] Performed By: #### 2 4325-3, 52206-0 ####[facility] [id number] [place] [address] [place] Chloride [Moles/Vol] 100 mmol/L Normal 97-105 [facility] Comment on above: Order Comment: Speci men Type: BLOOD SPECIMENOrdering Facility: [facility] Address: [address] [place] [address] Performed By: #### 2 4325-3, 58032-8 ####[facility] [id number] [place] [id number] [place] CO2 [Moles/Vol] 26 mmol/L Normal 22-30 [facility] Comment on above: Order Comment: Speci men Type: BLOOD SPECIMENOrdering Facility: [facility] Address: [address] [place] [address] Performed By: #### 2 4325-3, 98069-5 ####[facility] [id number] [address] OF [facility] Creatinine [Mass/Vol] 0.83 mg/dL Normal 0.58-0.96 [facility] Comment on above: Order Comment: Speci men Type: BLOOD SPECIMENOrdering Facility: [facility] Address: [address] [place] [address] Performed By: #### 2 4325-3, 24127-3 ####[facility] [id number] [address] Creatinine and Glomerular filtration rate.predicted panel (S/P/Bld) 74 mL/min/1.73m??? Normal >=60 [facility] Comment on above: Order Comment: Speci men Type: BLOOD SPECIMENOrdering Facility: [facility] Address: [address] [place] [address] Result Comment: Meaghan mated Glomerular Filtration Rate [...] actual GFR. Performed By: #### 2 4325-3, 33557-2 ####[facility] [id number] [place] [id number] [place] Glucose [Mass/Vol] 158 mg/dL High 74-99 [facility] Comment on above: Order Comment: Renay adkins Type: BLOOD SPECIMENOrdering Facility: [facility] Address: [address] [place] [address] Result Comment: The [place] Diabetes Association (ADA) provides guidance for cutoff [...] Standards of Medical Care in Diabetes 2016, [place] [employer]. Diabetes Care. 2016.39(Suppl 1). Performed By: #### 2 4325-3, 83895-5 ####[facility] [id number] [place] [address] [place] Potassium [Moles/Vol] 4.0 mmol/L Normal 3.7-5.1 [facility] Comment on above: Order Comment: Renay adkins Type: BLOOD SPECIMENOrdering Facility: [facility] Address: [address] [place] [address] Performed By: #### 2 4325-3, 84259-3 ####[facility] [id number] [place] [address] [place] Protein [Mass/Vol] 4.9 g/dL Low 6.3-8.0 [facility] Comment on above: Order Comment: Renay adkins Type: BLOOD SPECIMENOrdering Facility: [facility] Address: [address] [place] [address] Performed By: #### 2 4325-3, 64620-2 ####[facility] [id number] [place] [address] [place] Sodium [Moles/Vol] 134 mmol/L Low 136-144 [facility] Comment on above: Order Comment: Speci men Type: BLOOD SPECIMENOrdering Facility: [facility] Address: [address] [place] [id number] Performed By: #### 2 4325-3, 34445-6 ####[facility] [id number] [place] [address] [place] [facility] Urea nitrogen [Mass/Vol] 24 mg/dL High 7-21 [facility] Comment on above: Order Comment: Speci men Type: BLOOD SPECIMENOrdering Facility: [facility] Address: [address] [place] [id number] Performed By: #### 2 4325-3, 89019-3 ####[facility] [id number] [place] [address] [facility] ECHOon 03-22-2023 Echocardiography Echocardiography Rep ort: Transthoracic Echo [facility] Date of service: 03/22/2023 12:34:35 PM [facility] Ordering physician: AMERICA MAYER Indication: Re-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 heart disease with change in clinical status Technologist: Jamarcus Fraser [facility] Interpreting physician: Jb Richardson MD PATIENT: Name: [...] to mitral (more content not included)... Normal [facility] Haptoglob SerPl-mCncon 03-22 Haptoglobin [Mass/Vol] 95 mg/dL Normal 31-238 [facility] Comment on above: Order Comment: Renay adkins Type: BLOOD SPECIMEN Ordering Facility: [facility] Address: [address] [place] [address] Performed By: #### 1 4196-0, 14777-1 #### [facility] CLIA [id number] 1 [place] [address] [place] Hepatic function 2000 panelo n 03-22-2023 Albumin [Mass/Vol] 2.6 g/dL Low 3.9-4.9 [facility] Comment on above: Order Comment: Speci men Type: BLOOD SPECIMENOrdering Facility: [facility] Address: [address] [place] [address] Performed By: #### 2 4325-3, 42064-2 ####[facility] [id number] [address] [place] ALP [Catalytic activity/Vol] 200 U/L High 34-123 [facility] Comment on above: Order Comment: Speci men Type: BLOOD SPECIMENOrdering Facility: [facility] Address: [address] [place] [address] Performed By: #### 2 4325-3, 06618-5 ####[facility]ATORYCLIA [id number] [place] [address] [place] ALT With P-5'-P [Catalytic activity/Vol] 53 U/L High 7-38 [facility] Comment on above: Order Comment: Speci men Type: BLOOD SPECIMENOrdering Facility: [facility] Address: [address] [place] [address] Performed By: #### 2 4325-3, 40720-3 ####[facility] [id number] [address] [place] AST With P-5'-P [Catalytic activity/Vol] 38 U/L High 13-35 [facility] Comment on above: Order Comment: Speci men Type: BLOOD SPECIMENOrdering Facility: [facility] Address: [address] [place] [address] Performed By: #### 2 4324-3, 47429-3 ####[facility] [id number] [address] [place] Bilirubin.conjugated [Mass/Vol] 0.3 mg/dL High <0.2 [facility] Comment on above: Order Comment: Speci men Type: BLOOD SPECIMENOrdering Facility: [facility] Address: [address] [place] [address] Performed By: #### 2 4325-3, 46205-3 ####[facility] [facility] [id number] [place] [address] [place] Protein [Mass/Vol] 5.1 g/dL Low 6.3-8.0 [facility] Comment on above: Order Comment: Speci men Type: BLOOD SPECIMENOrdering Facility: [facility] Address: [address] [place] [address] Performed By: #### 2 4325-3, 23128-1 ####[facility]ORY[facility] [id number] [place] [address] [place] LDH SerPl-cCncon 03-22-2023 LDH [Catalytic activity/Vol] 300 U/L High 135-214 [facility] Comment on above: Order Comment: Speci men Type: BLOOD SPECIMEN Ordering Facility: [facility] Address: [address] [place] [address] Performed By: #### 1 4196-0, 60337-0 #### [facility] CLIA [id number] [address] [place] [address] [place] Lactate (Bld) [Moles/Vol]on 03-22-2023 Lactate [Moles/Vol] 1.7 mmol/L Normal 0.5-2.2 [facility] Comment on above: Order Comment: Speci men Type: BLOOD SPECIMEN Ordering Facility: [facility] Address: [address] [place] [address] Performed By: #### 1 4196-0, 11595-4 #### [facility] CLIA [id number] [address] [place] [address] [place] NURSING PROGon 03-22-2023 NURSING PROG HNO ID: [id number] Author: OJ PEÑA, PAULA Service: Nursing Author Type: Registered Nurse Type: Nursing Progress Note Filed: 03/22/2023 09:58 Note Text: Pt to remain in isolation d/t positive covid test at [place] and pt being immunocompromised. Orders received from Dr Geno Hart. Normal [facility] PT panel Coag (PPP)on 2023 INR Coag (PPP) [Relative time] 2.5 {INR} High 0.9-1.3 [facility] Comment on above: Order Comment: Renay adkins Type: BLOOD SPECIMENOrdering Facility: [facility] Address: [address] [place] [address] Result Comment: Halle min K Antagonist (VKA) Therapeutic Range: INR 2 to 3 (Target INR of 2.5) Note: For patients treated with VKA drugs, such as warfarin, the [place] [employer] 2012 Guideline recommends [...] Lia GH, et al. Chest 2012, 141:7S-47S Mtizi RA, et al. [facility] 2017, 70: 252-289 Performed By: #### 3 4528-0 ####[facility]ORYCLIA [id number] [place] [address] [place] PT Coag (PPP) [Time] 24.6 s High 9.7-13.0 [facility] Comment on above: Order Comment: Renay adkins Type: BLOOD SPECIMENOrdering Facility: [facility] Address: [address] [place] [address] Performed By: #### 3 4528-0 ####[facility]ORYCLIA [id number] [address] [place] Retics #on 03-22-2023 Reticulocytes (Bld) [#/Vol] 0.54990 10*3/uL Normal 0.018-0.10 0 [facility] Comment on above: Order Comment: Renya adkins Type: BLOOD SPECIMEN Ordering Facility: [facility] Address: [address] [place] [address] Performed By: #### 1 4196-0, 06360-1 #### [facility] CLIA [id number] [address] Reticulocytes (Bld) [#/Vol]o n 03-22-2023 Reticulocytes/100 RBC (Bld) 2.9 % High 0.4-2.0 [facility] Comment on above: Order Comment: Speci men Type: BLOOD SPECIMEN Ordering Facility: [facility] Address: [address] [place] [address] Performed By: #### 1 4196-0, 58682-1 #### [facility] CLIA [id number] [address] CBC panel Auto (Bld)on 03-21 Erythrocyte distribution width (RBC) [Ratio] 16.2 % High 11.5-15.0 [facility] Comment on above: Order Comment: Speci men Type: BLOOD SPECIMEN Ordering Facility: [facility] Address: [address] [place] [address] Performed By: #### 1 4196-0, 80705-6 #### [facility] CLIA [id number] [address] Hematocrit (Bld) [Volume fraction] 25.9 % Low 36.0-46.0 [facility] Comment on above: Order Comment: Speci men Type: BLOOD SPECIMEN Ordering Facility: [facility] Address: [address] [place] [address] Performed By: #### 1 4196-0, 08530-8 #### [facility] CLIA [id number] [address] [place] Hemoglobin (Bld) [Mass/Vol] 8.6 g/dL Low 11.5-15.5 [facility] Comment on above: Order Comment: Speci men Type: BLOOD SPECIMEN Ordering Facility: [facility] Address: [address] [place] [address] Performed By: #### 1 4196-0, 33275-5 #### [facility] [facility] CLIA [id number] [address] MCH (RBC) [Entitic mass] 26.8 pg Normal 26.0-34.0 [facility] Comment on above: Order Comment: Speci men Type: BLOOD SPECIMEN Ordering Facility: [facility] Address: [address] [place] [address] Performed By: #### 1 4196-0, 39791-1 #### [facility] CLIA [id number] [address] MCHC (RBC) [Mass/Vol] 33.2 g/dL Normal 30.5-36.0 [facility] Comment on above: Order Comment: Speci men Type: BLOOD SPECIMEN Ordering Facility: [facility] Address: [address] [place] [address] Performed By: #### 1 4196-0, 17998-9 #### [facility] CLIA [id number] [address] [place] [address] MCV (RBC) [Entitic vol] 80.7 fL Normal 80.0-100.0 [facility] Comment on above: Order Comment: Speci men Type: BLOOD SPECIMEN Ordering Facility: [facility] Address: [address] [place] [address] Performed By: #### 1 4196-0, 65101-4 #### [facility] CLIA [id number] [address] [place] [address] Nucleated RBC (Bld) [#/Vol] 10*3/uL Normal <0.01 [facility] Comment on above: Order Comment: Speci men Type: BLOOD SPECIMEN Ordering Facility: [facility] Address: [address] [place] [address] Performed By: #### 1 4196-0, 17416-5 #### [facility] CLIA [id number] [address] Platelet mean volume (Bld) [Entitic vol] 10.6 fL Normal 9.0-12.7 [facility] Comment on above: Order Comment: Speci men Type: BLOOD SPECIMEN Ordering Facility: [facility] Address: [address] [place] [address] Performed By: #### 1 4196-0, 38037-8 #### [employer] [facility] CLIA [id number] [address] Platelets (Bld) [#/Vol] 148 10*3/uL Low 150-400 [facility] Comment on above: Order Comment: Speci men Type: BLOOD SPECIMEN [facility]ing Facility: [facility] Address: [address] [place] [address] Performed By: #### 1 4196-0, 88015-8 #### [facility] CLIA [id number] [address] RBC (Bld) [#/Vol] 3.21 10*6/uL Low 3.90-5.20 [facility] Comment on above: Order Comment: Speci men Type: BLOOD SPECIMEN Ordering Facility: [facility] Address: [address] [place] [address] Performed By: #### 1 4196-0, 81836-9 #### [facility] CLIA [id number] [address] WBC (Bld) [#/Vol] 6.94 10*3/uL Normal 3.70-11.00 [facility] Comment on above: Order Comment: Speci men Type: BLOOD SPECIMEN Ordering Facility: [facility] Address: [address] [place] [address] Performed By: #### 1 4196-0, 70040-6 #### [facility] CLIA [id number] [address] CONSULTon 03-21-2023 CONSULT HNO ID: [id number] Author: SHERIN SHEA DO Service: Hospital Medicine Author Type: Physician Type: Consults Filed: 03/21/2023 17:37 Note Text: DEPARTMENT OF HOSPITAL MEDICINE INITIAL CONSULT SERVICE DATE: 03/21/2023 SERVICE TIME: 10:03 AM Primary Care Physician: Claudine Durán MD NIGHT AND WEEKEND COVERAGE: [place] COVERAGE: After 7pm, please call cross cover pager #[phone] REASON FOR CONSULT: possibly assume care REQUESTING [...] factor (HCC) 03/07/2015 Dr. Hurley ([facility]) Unspecified hemorrhoids without mention of complication [...] SPINE FUSN,POST INTERBODY 2011 Dr. Armando at [facility]. Diskectomy and laminectomy PAST SURGICAL HISTORY OF [...] 4 H PRN remdesivir in NaCl 0.9% Vial-Mate/ADD-[place] 100 mg 275 mL 100 mg INTRAVENOUS [...] (SPORANOX) 200 mg ORAL BID [place] 1 [place] (CHLORASEPTIC) 1 [place] MUCOUS MEMBRANE (TOPICAL MOUTH AND THROAT) q 2 H PRN . ALLERGIES Allerg (more content not included)... Normal [facility] CONSULT PROGon 03-21-2023 CONSULT PROG HNO ID: [id number] Author: MAGAN VILLAFUERTE DO Service: Pulmonary Disease [...] enzymes), -GERD, -HTN, -h/o disseminated Histoplasmosis in 5835-6721 managed on itraconazole, ne H an M [...] inside the abdomen. INR on arrival to [place] was 9. She given Vitamin K and transferred here. 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 No sustained Rx with Amiodarone, Nitrofurantoin, cancer chemotherapy. Smoking h/o: 09-shck-hpko former smoker, quit in 1989. Late was [...] factor (HCC) 03/07/2015 Dr. Hurley ([facility]) Unspecified hemorrhoids without mention of complication [...] SPINE FUSN,POST INTERBODY 2011 Dr. Armando at [facility]. Diskectomy and laminectomy PAST SURGICAL HISTORY OF 03/07/1999 removal facial lesion PAST SURGICAL HISTORY OF 08/17/2014 excision soft tissue mass left index finger TONSILLECTOMY PRIMARY/ (more content not included)... Normal [facility] Comprehensive metabolic 2000 panelon 03-21-2023 Albumin [Mass/Vol] 2.8 g/dL Low 3.9-4.9 [facility] Comment on above: Order Comment: Speci men Type: BLOOD SPECIMEN Ordering Facility: [facility] Address: [address] [place] [address] Performed By: #### 2 4323-8, 25278-6 #### [facility] CLIA [id number] [address] STATES OF [facility] ALP [Catalytic activity/Vol] 215 U/L High 34-123 [facility] Comment on above: Order Comment: Speci men Type: BLOOD SPECIMEN Ordering Facility: [facility] Address: [address] [place] [address] Performed By: #### 2 4323-8, 75946-6 #### [facility] CLIA [id number] [address] STATES [place] ALT With P-5'-P [Catalytic activity/Vol] 62 U/L High 7-38 [facility] Comment on above: Order Comment: Speci men Type: BLOOD SPECIMEN Ordering Facility: [facility] Address: [address] [place] [address] Performed By: #### 2 4323-8, 35054-8 #### [facility] CLIA [id number] [address] OF [facility] Anion gap [Moles/Vol] 7 mmol/L Low 9-18 [facility] Comment on above: Order Comment: Speci men Type: BLOOD SPECIMEN Ordering Facility: [facility] Address: [address] [place] [address] Performed By: #### 2 4323-8, 36029-4 #### [facility] CLIA [id number] [address] [place] OF [facility] AST With P-5'-P [Catalytic activity/Vol] 42 U/L High 13-35 [facility] Comment on above: Order Comment: Speci men Type: BLOOD SPECIMEN Ordering Facility: [facility] Address: [address] [place] [address] Performed By: #### 2 4323-8, 05535-6 #### [facility] CLIA [id number] [address] [place] Bilirubin [Mass/Vol] 0.6 mg/dL Normal 0.2-1.3 [facility] Comment on above: Order Comment: Speci men Type: BLOOD SPECIMEN Ordering Facility: [facility] Address: [address] [place] [address] Performed By: #### 2 4323-8, 01627-2 #### [facility] CLIA [id number] [address] [place] Calcium [Mass/Vol] 8.5 mg/dL Normal 8.5-10.2 [facility] Comment on above: Order Comment: Speci men Type: BLOOD SPECIMEN Ordering Facility: [facility] Address: [address] [place] [address] Performed By: #### 2 4323-8, 69892-4 #### [facility] CLIA [id number] [address] OF [facility] Chloride [Moles/Vol] 97 mmol/L Normal 97-105 [facility] Comment on above: Order Comment: Speci men Type: BLOOD SPECIMEN Ordering Facility: [facility] Address: [address] [place] [address] Performed By: #### 2 4323-8, 96244-7 #### [facility] CLIA [id number] [address] OF [place] CO2 [Moles/Vol] 26 mmol/L Normal 22-30 [facility] Comment on above: Order Comment: Speci men Type: BLOOD SPECIMEN Ordering Facility: [facility] Address: [address] [place] [address] Performed By: #### 2 4323-8, 72370-3 #### [facility] CLIA [id number] [address] OF [facility] Creatinine [Mass/Vol] 0.93 mg/dL Normal 0.58-0.96 [facility] Comment on above: Order Comment: Speci men Type: BLOOD SPECIMEN Ordering Facility: [facility] Address: [address] [place] [address] Performed By: #### 2 4323-8, 91886-0 #### [facility] CLIA [id number] [address] Creatinine and Glomerular filtration rate.predicted panel (S/P/Bld) 64 mL/min/1.73m??? Normal >=60 [facility] Comment on above: Order Comment: Speci men Type: BLOOD SPECIMEN Ordering Facility: [facility] Address: [address] [place] [address] Result Comment: Meaghan mated Glomerular Filtration Rate [...] actual GFR. Performed By: #### 2 4323-8, 50213-6 #### [facility] CLIA [id number] [address] [place] [address] [place] Glucose [Mass/Vol] 162 mg/dL High 74-99 [facility] Comment on above: Order Comment: Renay adkins Type: BLOOD SPECIMEN Ordering Facility: [facility] Address: [address] [place] [address] Result Comment: The [place] Diabetes Association (ADA) provides guidance for cutoff [...] Standards of Medical Care in Diabetes 2016, [place] [employer]. Diabetes Care. 2016.39(Suppl 1). Performed By: #### 2 4323-8, 20000-3 #### [facility] CLIA [id number] 1 [place] [address] [place] Potassium [Moles/Vol] 4.5 mmol/L Normal 3.7-5.1 [facility] Comment on above: Order Comment: Renay men Type: BLOOD SPECIMEN Ordering Facility: [facility] Address: [address] [place] [address] Performed By: #### 2 4323-8, 38928-0 #### [facility] CLIA [id number] 1 [place] [address] [place] Protein [Mass/Vol] 5.0 g/dL Low 6.3-8.0 [facility] Comment on above: Order Comment: Abhilashi men Type: BLOOD SPECIMEN Ordering Facility: [facility] Address: [address] [place] [address] Performed By: #### 2 4323-8, 59083-4 #### [facility] CLIA [id number] [address] Sodium [Moles/Vol] 130 mmol/L Low 136-144 [facility] Comment on above: Order Comment: Speci men Type: BLOOD SPECIMEN Ordering Facility: [facility] Address: [address] [place] [address] Performed By: #### 2 4323-8, 99470-0 #### [facility] CLIA [id number] [address] [place] Urea nitrogen [Mass/Vol] 19 mg/dL Normal 7-21 [facility] Comment on above: Order Comment: Speci men Type: BLOOD SPECIMEN Ordering Facility: [facility] Address: [address] [place] [address] Performed By: #### 2 4323-8, 71847-2 #### [facility] CLIA [id number] [address] ECG COMPLETEon 03-21-2023 ECG COMPLETE Ventricular Rate : 1 03 BPM Atrial Rate : 103 BPM P-R Interval : 134 ms QRS Duration : 80 ms Q-T Interval : 336 ms QTC Calculation(Bazett) : 440 ms Calculated P [place] : 55 degrees Calculated R [place] : 28 degrees Calculated T [place] : 33 degrees SINUS TACHYCARDIA POSSIBLE LEFT ATRIAL ENLARGEMENT LOW VOLTAGE QRS CANNOT RULE OUT ANTERIOR INFARCT , AGE UNDETERMINED ABNORMAL ECG NO PREVIOUS ECGS AVAILABLE Confirmed by MD THAO THOMAS ([id number]) on 03/29/2023 8:55:56 PM NAME : HAYDEE BUSTAMANTE PID : [id number] : 1945 Gender : Female Race : ORD : [id number] Procedure Date : Mar 21 2023 09:24:27 Edit Date : Mar 29 2023 20:55:58 Diagnosis: SINUS TACHYCARDIA POSSIBLE LEFT ATRIAL ENLARGEMENT LOW VOLTAGE QRS CANNOT RULE OUT ANTERIOR INFARCT , AGE UNDETERMINED ABNORMAL ECG NO PREVIOUS ECGS AVAILABLE Confirmed by MD THAO THOMAS ([id number]) on 03/29/2023 8:55:56 PM Test Reason : Check QT Location : 4 : AKED EM Overread By : MD THAO THOMAS Edited By : MD THAO THOMAS Referred By : , Acquired by : BREN CELIS [facility] ED NOTEon 03-21-2023 ED NOTE HNO ID: [id number] Author: MAGALYS PHILLIPS RN Service: ? Author Type: Registered Nurse Type: ED Notes Filed: 03/21/2023 15:01 Note Text: Report given to Lilia MITCHELL 5100 at this time. No further questions at this time. [facility] ED NOTE HNO ID: [id number] Author: ELKE PELAEZ RN Service: Emergency Medicine Author Type: Registered Nurse Type: ED Notes Filed: 03/21/2023 03:09 Note Text: REPORT GIVEN TO ARJUN MITCHELL [facility] PT panel Coag (PPP)on 2023 INR Coag (PPP) [Relative time] 3.9 {INR} High 0.9-1.3 [facility] Comment on above: Order Comment: Renay adkins Type: BLOOD SPECIMEN Ordering Facility: [facility] Address: [address] [place] [address] Result Comment: Halle min K Antagonist (VKA) Therapeutic Range: INR 2 to 3 (Target INR of 2.5) Note: For patients treated with VKA drugs, such as warfarin, the [place] [employer] 2012 Guideline recommends [...] 70: 252-289 Performed By: #### 1 4196-0, 43322-2 #### [facility] CLIA [id number] [address] STATES OF [facility] PT Coag (PPP) [Time] 37.0 s High 9.7-13.0 [facility] Comment on above: Order Comment: Speci men Type: BLOOD SPECIMEN Ordering Facility: [facility] Address: [address] [place] [address] Performed By: #### 1 4196-0, 19691-8 #### [facility] CLIA [id number] [address] OF [facility] Procalcitonin SerPl-mCncon 0 03-21-2023 Procalcitonin [Mass/Vol] 0.18 ng/mL High <0.09 [facility] Comment on above: Order Comment: Speci men Type: BLOOD SPECIMEN Ordering Facility: [facility] Address: [facility] [place] [address] Result Comment: For a guided interpretation of test results, please visit the Change in Procalcitonin Calculator, [email or web address]. Performed By: #### 2 4323-8, 47512-8 #### 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 tuberculosis tuberculin stim IFN-g Ql (Bld) Negative Normal [facility] Comment on above: Order Comment: [facility] Type: BLOOD SPECIMEN Ordering Facility: [facility] Address: [address] [place] [address] Performed By: #### 1 4196-0, 54033-4 #### [facility] CLIA [id number] [address] MITOGEN MINUS NIL >7.27 Normal >=0.50 [facility] Comment on above: Order Comment: [facility] Type: BLOOD SPECIMEN Ordering Facility: [facility] Address: [address] [place] [address] Performed By: #### 1 4196-0, 84828-5 #### [facility] CLIA [id number] [address] TB GAMMA INTERPRETATION Infection with M . tuberculosis complex is unlikely. If latent tuberculosis infection is highly suspected, a negative result does not rule out the infection. Specimens from immunocompromised patients and those <5 years of age may show false negative results. In case of a contact investigation, please repeat 8-12 weeks after a known exposure. Normal [facility] Comment on above: Order Comment: [facility] Type: BLOOD SPECIMEN Ordering Facility: [facility] Address: [address] [place] [address] Performed By: #### 1 4196-0, 65995-1 #### [facility] CLIA [id number] [address] TB NIL 2.73 IU/mL Normal <=8.00 [facility] Comment on above: Order Comment: [facility] Type: BLOOD SPECIMEN Ordering Facility: [facility] Address: [address] [place] [address] Performed By: #### 1 4196-0, 23329-5 #### [facility] CLIA [id number] [address] TB1 AG MINUS NIL <0.00 Normal <0.35 [facility] Comment on above: Order Comment: Speci men Type: BLOOD SPECIMEN Ordering Facility: [facility] Address: [address] [place] [address] Performed By: #### 1 4196-0, 97566-8 #### [facility] CLIA [id number] 1 [place] [address] [place] TB2 AG MINUS NIL <0.00 Normal <0.35 [facility] Comment on above: Order Comment: Speci men Type: BLOOD SPECIMEN Ordering Facility: [facility] Address: [address] [place] [address] Performed By: #### 1 4196-0, 13925-4 #### [facility] CLIA [id number] [address] STATES [place] Basic metabolic 2000 panelon 03-20-2023 Anion gap [Moles/Vol] 8 mmol/L Low 9-18 [facility] Comment on above: Order Comment: Speci men Type: BLOOD SPECIMEN Ordering Facility: [facility] Address: [address] [place] [address] Performed By: #### 1 4196-0, 18735-9 #### [facility] CLIA [id number] [address] [place] Calcium [Mass/Vol] 8.4 mg/dL Low 8.5-10.2 [facility] Comment on above: Order Comment: Speci men Type: BLOOD SPECIMEN Ordering Facility: [facility] Address: [address] [place] [address] Performed By: #### 1 4196-0, 81086-9 #### [facility] CLIA [id number] [address] STATES OF [facility] Chloride [Moles/Vol] 96 mmol/L Low 97-105 [facility] Comment on above: Order Comment: Speci men Type: BLOOD SPECIMEN Ordering Facility: [facility] Address: [address] [place] [id number] Performed By: #### 1 4196-0, 36280-3 #### [facility] CLIA [id number] 1 [place] [address] [place] CO2 [Moles/Vol] 24 mmol/L Normal 22-30 [facility] Comment on above: Order Comment: Speci men Type: BLOOD SPECIMEN Ordering Facility: [facility] Address: [address] [place] [address] Performed By: #### 1 4196-0, 97918-2 #### [facility] CLIA [id number] [address] [place] Creatinine [Mass/Vol] 0.84 mg/dL Normal 0.58-0.96 [facility] Comment on above: Order Comment: Speci men Type: BLOOD SPECIMEN Ordering Facility: [facility] Address: [address] [place] [address] Performed By: #### 1 4196-0, 67405-3 #### [facility] CLIA [id number] [address] Creatinine and Glomerular filtration rate.predicted panel (S/P/Bld) 73 mL/min/1.73m??? Normal >=60 [facility] Comment on above: Order Comment: Speci men Type: BLOOD SPECIMEN Ordering Facility: [facility] Address: [address] [place] [address] Result Comment: Meaghan mated Glomerular Filtration Rate [...] actual GFR. Performed By: #### 1 4196-0, 96557-3 #### [facility] CLIA [id number] [address] [place] Glucose [Mass/Vol] 77 mg/dL Normal 74-99 [facility] Comment on above: Order Comment: Renay adkins Type: BLOOD SPECIMEN Ordering Facility: [facility] Address: [address] [place], [place] [address] Result Comment: The [place] Diabetes Association (ADA) provides guidance for cutoff [...] Standards of Medical Care in Diabetes 2016, [place] [employer]. Diabetes Care. 2016.39(Suppl 1). Performed By: #### 1 4196-0, 73070-5 #### [facility] CLIA [id number] 1 [place] [address] [place] Potassium [Moles/Vol] 3.9 mmol/L Normal 3.7-5.1 [facility] Comment on above: Order Comment: Renay adkins Type: BLOOD SPECIMEN Ordering Facility: [facility] Address: [address] [place] [address] Performed By: #### 1 4196-0, 53322-2 #### [facility] CLIA [id number] 1 [place] [address] [place] Sodium [Moles/Vol] 128 mmol/L Low 136-144 [facility] Comment on above: Order Comment: Renay adkins Type: BLOOD SPECIMEN Ordering Facility: [facility] Address: [address] [place], [place] [address] Performed By: #### 1 4196-0, 67057-2 #### [facility] CLIA [id number] [address] [place] Urea nitrogen [Mass/Vol] 25 mg/dL High 7-21 [facility] Comment on above: Order Comment: Abhilashi men Type: BLOOD SPECIMEN Ordering Facility: [facility] Address: [address] [place] [address] Performed By: #### 1 4196-0, 36532-9 #### [facility] CLIA [id number] [address] CBC panel Auto (Bld)on 03-20 Erythrocyte distribution width (RBC) [Ratio] 16.3 % High 11.5-15.0 [facility] Comment on above: Order Comment: Speci men Type: BLOOD SPECIMEN Ordering Facility: [facility] Address: [address] [place] [address] Performed By: #### 1 4196-0, 62928-3 #### [facility] CLIA [id number] [address] Hematocrit (Bld) [Volume fraction] 24.6 % Low 36.0-46.0 [facility] Comment on above: Order Comment: Speci men Type: BLOOD SPECIMEN Ordering Facility: [facility] Address: [address] [place] [address] Performed By: #### 1 4196-0, 84552-2 #### [facility] CLIA [id number] [address] Hemoglobin (Bld) [Mass/Vol] 8.1 g/dL Low 11.5-15.5 [facility] Comment on above: Order Comment: Speci men Type: BLOOD SPECIMEN Ordering Facility: [facility] Address: [address] [place] [address] Performed By: #### 1 4196-0, 64103-5 #### [facility] CLIA [id number] [address] MCH (RBC) [Entitic mass] 26.9 pg Normal 26.0-34.0 [facility] Comment on above: Order Comment: Speci men Type: BLOOD SPECIMEN Ordering Facility: [facility] Address: [address] [place] [address] Performed By: #### 1 4196-0, 97583-6 #### [facility] CLIA [id number] [address] [place] MCHC (RBC) [Mass/Vol] 32.9 g/dL Normal 30.5-36.0 [facility] Comment on above: Order Comment: Speci men Type: BLOOD SPECIMEN Ordering Facility: [facility] Address: [address] [place] [address] Performed By: #### 1 4196-0, 95822-5 #### [facility] CLIA [id number] [address] OF [facility] MCV (RBC) [Entitic vol] 81.7 fL Normal 80.0-100.0 [facility] Comment on above: Order Comment: Speci men Type: BLOOD SPECIMEN Ordering Facility: [facility] Address: [address] [place] [address] Performed By: #### 1 4196-0, 74796-3 #### [facility] CLIA [id number] [address] OF [facility] Nucleated RBC (Bld) [#/Vol] 10*3/uL Normal <0.01 [facility] Comment on above: Order Comment: Speci men Type: BLOOD SPECIMEN Ordering Facility: [facility] Address: [address] [place] [address] Performed By: #### 1 4196-0, 60472-5 #### [facility] CLIA [id number] [address] Platelet mean volume (Bld) [Entitic vol] 10.4 fL Normal 9.0-12.7 [facility] Comment on above: Order Comment: Speci men Type: BLOOD SPECIMEN Ordering Facility: [facility] Address: [address] [place] [address] Performed By: #### 1 4196-0, 43371-3 #### [facility] CLIA [id number] [address] [place] Platelets (Bld) [#/Vol] 126 10*3/uL Low 150-400 [facility] Comment on above: Order Comment: Speci men Type: BLOOD SPECIMEN Ordering Facility: [facility] Address: [address] [place] [address] Result Comment: No c lot detected. Performed By: #### 1 4196-0, 22478-0 #### [facility] CLIA [id number] [address] [place] RBC (Bld) [#/Vol] 3.01 10*6/uL Low 3.90-5.20 [facility] Comment on above: Order Comment: Speci men Type: BLOOD SPECIMEN Ordering Facility: [facility] Address: [address] [place] [address] Performed By: #### 1 4196-0, 58177-7 #### [facility] CLIA [id number] [address] [place] WBC (Bld) [#/Vol] 5.06 10*3/uL Normal 3.70-11.00 [facility] Comment on above: Order Comment: Speci men Type: BLOOD SPECIMEN Ordering Facility: [facility] Address: [address] [place] [address] Performed By: #### 1 4196-0, 26257-2 #### [facility] CLIA [id number] [address] OF [facility] CONSULTon 03-20-2023 CONSULT HNO ID: [id number] Author: GENO HART MD Service: Infectious Disease [...] for recurrent lower extremity DVT, presented to [facility] 03/19/2023 for hemoptysis, going to the [place] ED but then sent here due to [...] be COVID-positive. Interestingly a CAT scan at [place] found pneumatosis intestinalis and intraperitoneal free air [...] -- 03/21/23 1000 remdesivir in NaCl 0.9% Vial-Mate/ADD-[place] 100 mg 275 mL 100 mg, INTRAVENOUS, [...] -- Immuno (more content not included)... 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 INR on arrival to [place] was 9. She given Vitamin K and transferred here. 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 No sustained Rx with Amiodarone, Nitrofurantoin, cancer chemotherapy. Smoking h/o: 38-huju-xpcv former smoker, quit in 1989. 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 Diverticulosis of colon (without mention of hemorrhage) Diverticulosis DVT, recurrent, lower extremity, acute ([facility]) 12/10/2014 Esophageal reflux Hiatal hernia 02/25/2018 Hypertension Lung nodule Personal history of unspecified urinary disorder 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 rheumatoid factor ([facility]) 03/07/2015 Dr. Hurley ([facility]) Unspecified hemorrhoids without mention of complication [...] SPINE FUSN,POST INTERBODY [address] Dr. [facility] at [facility]. Diskectomy and laminectomy PAST SURGICAL HISTORY OF 03/07/1999 removal facial lesion PAST SURGICAL HISTORY OF 08/17/2014 excision soft tissue mass left index finger TONSILLECTOMY PRIMARY/SECONDARY TRANSCATH RETRIEVAL,PERCUT 12/28/2006 medication ALL (more content not included)... Normal [facility] Comprehensive metabolic 2000 panelon 03-20-2023 Albumin [Mass/Vol] 2.6 g/dL Low 3.9-4.9 [facility] Comment on above: Order Comment: Speci men Type: BLOOD SPECIMEN Ordering Facility: [facility] Address: [address] [place] [address] Performed By: #### 3 3959-8, 67272-6 #### [facility] CLIA [id number] [address] ALP [Catalytic activity/Vol] 207 U/L High 34-123 [facility] Comment on above: Order Comment: Speci men Type: BLOOD SPECIMEN Ordering Facility: [facility] Address: [address] [place] [address] Performed By: #### 3 3959-8, 61009-2 #### [facility] CLIA [id number] [address] ALT With P-5'-P [Catalytic activity/Vol] 65 U/L High 7-38 [facility] Comment on above: Order Comment: Speci men Type: BLOOD SPECIMEN Ordering Facility: [facility] Address: [address] [place] [address] Performed By: #### 3 3959-8, 19745-9 #### [facility] CLIA [id number] [address] Anion gap [Moles/Vol] 8 mmol/L Low 9-18 [facility] Comment on above: Order Comment: Speci men Type: BLOOD SPECIMEN Ordering Facility: [facility] Address: [address] [place] [address] Performed By: #### 3 3959-8, 48885-7 #### [facility] CLIA [id number] [address] [place] AST With P-5'-P [Catalytic activity/Vol] 55 U/L High 13-35 [facility] Comment on above: Order Comment: Speci men Type: BLOOD SPECIMEN Ordering Facility: [facility] Address: [address] [place] [address] Performed By: #### 3 3959-8, 07642-0 #### [facility] CLIA [id number] [address] [place] Bilirubin [Mass/Vol] 0.7 mg/dL Normal 0.2-1.3 [facility] Comment on above: Order Comment: Speci men Type: BLOOD SPECIMEN Ordering Facility: [facility] Address: [address] [place] [address] Performed By: #### 3 3959-8, 39770-7 #### [facility] CLIA [id number] [address] [place] [address] [place] Calcium [Mass/Vol] 8.3 mg/dL Low 8.5-10.2 [facility] Comment on above: Order Comment: Speci men Type: BLOOD SPECIMEN Ordering Facility: [facility] Address: [address] [place] [address] Performed By: #### 3 3959-8, 66548-5 #### [facility] CLIA [id number] [address] [place] Chloride [Moles/Vol] 95 mmol/L Low 97-105 [facility] Comment on above: Order Comment: Speci men Type: BLOOD SPECIMEN Ordering Facility: [facility] Address: [address] [place] [address] Performed By: #### 3 3959-8, 21722-1 #### [facility] CLIA [id number] [address] [place] CO2 [Moles/Vol] 25 mmol/L Normal 22-30 [facility] Comment on above: Order Comment: Speci men Type: BLOOD SPECIMEN Ordering Facility: [facility] Address: [address] [place] [address] Performed By: #### 3 3959-8, 41834-7 #### [facility] CLIA [id number] [address] [place] Creatinine [Mass/Vol] 0.86 mg/dL Normal 0.58-0.96 [facility] Comment on above: Order Comment: Speci men Type: BLOOD SPECIMEN Ordering Facility: [facility] Address: [address] [place] [address] Performed By: #### 3 3959-8, 83007-8 #### [facility] CLIA [id number] [address] Creatinine and Glomerular filtration rate.predicted panel (S/P/Bld) 71 mL/min/1.73m??? Normal >=60 [facility] Comment on above: Order Comment: Specbetina adkins Type: BLOOD SPECIMEN Ordering Facility: [facility] Address: [address] [place] [address] Result Comment: Meaghan mated Glomerular Filtration Rate [...] actual GFR. Performed By: #### 3 3959-8, 47188-4 #### [facility] CLIA [id number] [address] Glucose [Mass/Vol] 84 mg/dL Normal 74-99 [facility] Comment on above: Order Comment: Renay adkins Type: BLOOD SPECIMEN Ordering Facility: [facility] Address: [address] [place] [address] Result Comment: The [place] Diabetes Association (ADA) provides guidance for cutoff [...] Standards of Medical Care in Diabetes 2016, [employer] [employer]. Diabetes Care. 2016.39(Suppl 1). Performed By: #### 3 3959-8, 08495-9 #### [facility] CLIA [id number] [address] STATES OF [facility] Potassium [Moles/Vol] 4.3 mmol/L Normal 3.7-5.1 [facility] Comment on above: Order Comment: Speci men Type: BLOOD SPECIMEN Ordering Facility: [facility] Address: [address] [place] [address] Performed By: #### 3 3959-8, 04811-7 #### [facility] CLIA [id number] [address] [place] Protein [Mass/Vol] 4.7 g/dL Low 6.3-8.0 [facility] Comment on above: Order Comment: Speci men Type: BLOOD SPECIMEN Ordering Facility: [facility] Address: [address] [place] [address] Performed By: #### 3 3959-8, 31070-0 #### [facility] CLIA [id number] [address] [place] [address] Sodium [Moles/Vol] 128 mmol/L Low 136-144 [facility] Comment on above: Order Comment: Speci men Type: BLOOD SPECIMEN Ordering Facility: [facility] Address: [address] [place] [address] Performed By: #### 3 3959-8, 54713-2 #### [facility] CLIA [id number] [address] Urea nitrogen [Mass/Vol] 20 mg/dL Normal 7-21 [facility] Comment on above: Order Comment: Speci men Type: BLOOD SPECIMEN Ordering Facility: [facility] Address: [address] [place] [address] Performed By: #### 3 3959-8, 03563-8 #### [facility] CLIA [id number] [address] ED NOTEon 03-20-2023 ED NOTE HNO ID: [id number] Author: ELKE PELAEZ RN Service: Emergency Medicine Author Type: Registered Nurse Type: ED Notes Filed: 03/20/2023 17:13 Note Text: Pt given food tray Normal [facility] ED NOTE HNO ID: [id number] Author: ELKE PELAEZ RN Service: Emergency Medicine Author Type: Registered Nurse Type: ED Notes Filed: 03/20/2023 15:44 Note Text: Pt ambulating to bathroom with steady gait [facility] ED NOTE HNO ID: [id number] Author: AMERICA ASTORGA RN Service: Emergency Medicine Author Type: Registered Nurse Type: ED Notes Filed: 03/20/2023 12:24 Note Text: Pt given lunch tray at this time. [facility] ED NOTE HNO ID: [id number] Author: BIBI GONZALEZ RN Service: Emergency Medicine Author Type: Registered Nurse Type: ED Notes Filed: 03/20/2023 06:27 Note Text: Surgery at bedside [facility] ED NOTE HNO ID: [id number] Author: BIBI GONZALEZ RN Service: Emergency Medicine Author Type: Registered Nurse Type: ED Notes Filed: 03/20/2023 06:23 Note Text: Patient ambulatory to restroom and back with steady gait. [facility] ED NOTE HNO ID: [id number] Author: BIBI GONZALEZ RN Service: Emergency Medicine Author Type: Registered Nurse Type: ED Notes Filed: 03/20/2023 02:11 Note Text: Patient ambulatory to restroom and back with steady gait. [facility] PT panel Coag (PPP)on 2023 INR Coag (PPP) [Relative time] 4.7 {INR} High 0.9-1.3 [facility] Comment on above: Order Comment: Speci men Type: BLOOD SPECIMENOrdering Facility: [facility] Address: [address] [place] [address] Result Comment: Halle min K Antagonist (VKA) Therapeutic Range: INR 2 to 3 (Target INR of 2.5) Note: For patients treated with VKA drugs, such as warfarin, the [employer] 2012 Guideline recommends [...] Chest 2012, 141:7S-47S Mitzi RA, et al. [facility] 2017, 70: 252-289 Performed By: #### 3 4528-0 ####[facility] [id number] [address] STATES [place] [facility] PT Coag (PPP) [Time] 44.0 s High 9.7-13.0 [facility] Comment on above: Order Comment: Renay adkins Type: BLOOD SPECIMENOrdering Facility: [facility] Address: [address] [place] [address] Performed By: #### 3 4528-0 ####[facility] [id number] [address] OF [facility] INR Coag (PPP) [Relative time] 5.7 {INR} High 0.9-1.3 [facility] Comment on above: Order Comment: Renay adkins Type: BLOOD SPECIMENOrdering Facility: [facility] Address: [address] [place] [address] Result Comment: Halle min K Antagonist (VKA) Therapeutic Range: INR 2 to 3 (Target INR of 2.5) Note: For patients treated with VKA drugs, such as warfarin, the [employer] 2012 Guideline recommends [...] Chest 2012, 141:7S-47S Mitzi RA, et al. [facility] 2017, 70: 252-289 Performed By: #### 3 4528-0 ####[facility] [id number] [address] [place] PT Coag (PPP) [Time] 52.4 s High 9.7-13.0 [facility] Comment on above: Order Comment: Speci men Type: BLOOD SPECIMENOrdering Facility: [facility] Address: [address] [place] [address] Performed By: #### 3 4528-0 ####[facility] [id number] [address] Procalcitonin SerPl-mCncon 0 03-20-2023 Procalcitonin [Mass/Vol] 0.20 ng/mL High <0.09 [facility] Comment on above: Order Comment: Speci men Type: BLOOD SPECIMEN Ordering Facility: [facility] Address: [address] [place] [address] Result Comment: For a guided interpretation of test results, please visit the Change in Procalcitonin Calculator, [email or web address]. Performed By: #### 3 3959-8, 02197-9 #### [facility] CLIA [id number] [address] Resp path 12b Pnl Spec GWEN+p [...] Not detected MYCOPLASMA PNEUMONIAE: Not detected Normal [facility] Comment on above: Performed By: #### 6 0566-7 ####[facility] [id number] [place] [address] [place] Absolute lymphocyte countOrd ered By: Bob Elias on 03-19-2023 Lymphocytes Auto (Unsp spec) [#/Vol] 0.97 10*3/uL 0.83-4.51 [facility] Activated partial thrombopla stin time (aPTT) in platelet poor plasma by coagulation aOrdered By: Bob Elias on 03-19-2023 aPTT Coag (PPP) [Time] 109.6 s 24.1-36.2 [facility] Comment on above: CRITICAL VALUE VERIF IED. CALLED TO MYNOR MITCHELL (ER)03/19/23 1200 Chacho Bernal.RESULTS READ BACK BY SAME. Automated lymphocyte count a s percentage of total leukocytesOrdered By: Bob Elias on 03-19-2023 Lymphocytes/100 WBC Auto (Unsp spec) 15.1 % 19-41 [facility] Basic metabolic 2000 panelon 03-19-2023 Anion gap [Moles/Vol] 8 mmol/L Low 9-18 [facility] Comment on above: Order Comment: Speci men Type: BLOOD SPECIMENOrdering Facility: [facility] Address: [address] [place] [address] Performed By: #### 2 4321-2 ####[facility] [id number] [place] [address] [place] Calcium [Mass/Vol] 8.9 mg/dL Normal 8.5-10.2 [facility] Comment on above: Order Comment: Speci men Type: BLOOD SPECIMENOrdering Facility: [facility] Address: [address] [place] [address] Performed By: #### 2 4321-2 ####[facility] [id number] [address] Chloride [Moles/Vol] 95 mmol/L Low 97-105 [facility] Comment on above: Order Comment: Speci men Type: BLOOD SPECIMENOrdering Facility: [facility] Address: [address] [place] [address] Performed By: #### 2 4321-2 ####[facility] [id number] [address] CO2 [Moles/Vol] 25 mmol/L Normal 22-30 [facility] Comment on above: Order Comment: Speci men Type: BLOOD SPECIMENOrdering Facility: [facility] Address: [address] [place] [address] Performed By: #### 2 4321-2 ####[facility] [id number] [address] Creatinine [Mass/Vol] 0.88 mg/dL Normal 0.58-0.96 [facility] Comment on above: Order Comment: Speci men Type: BLOOD SPECIMENOrdering Facility: [facility] Address: [address] [place] [address] Performed By: #### 2 4321-2 ####[facility] [id number] [address] Creatinine and Glomerular filtration rate.predicted panel (S/P/Bld) 69 mL/min/1.73m??? Normal >=60 [facility] Comment on above: Order Comment: Speci men Type: BLOOD SPECIMENOrdering Facility: [facility] Address: [address] [place] [address] Result Comment: Meaghan mated Glomerular Filtration Rate [...] actual GFR. Performed By: #### 2 4321-2 ####[facility]ORYCLIA [id number] [place] [address] [place] Glucose [Mass/Vol] 87 mg/dL Normal 74-99 [facility] Comment on above: Order Comment: Renay lucille Type: BLOOD SPECIMENOrdering Facility: [facility] Address: [address] [place] [address] Result Comment: The [place] Diabetes [employer] (ADA) provides guidance for cutoff [...] Standards of Medical Care in Diabetes 2016, [place] [employer]. Diabetes Care. 2016.39(Suppl 1). Performed By: #### 2 4321-2 ####[facility]ORYCLIA [id number] [place] [address] [place] Potassium [Moles/Vol] 4.3 mmol/L Normal 3.7-5.1 [facility] Comment on above: Order Comment: Renay adkins Type: BLOOD SPECIMENOrdering Facility: [facility] Address: [address] [place] [address] Performed By: #### 2 4321-2 ####[facility]ORYCLIA [id number] [place] [address] [place] Sodium [Moles/Vol] 128 mmol/L Low 136-144 [facility] Comment on above: Order Comment: Abhilashi lucille Type: BLOOD SPECIMENOrdering Facility: [facility] Address: [address] [place] [address] Performed By: #### 2 4321-2 ####[facility]ORYCLIA [id number] [place] [address] [place] Urea nitrogen [Mass/Vol] 27 mg/dL High 7-21 [facility] Comment on above: Order Comment: Speci men Type: BLOOD SPECIMENOrdering Facility: [facility] Address: [place] [id number] Performed By: #### 2 4321-2 ####[facility]ORYCLIA [id number] [place] [address] [place] Basophil percentageOrdered B y: Bob Elias on 03-19-2023 Basophil percentage 9.0 g/dL 12.0-15.0 [facility] Basophil percentage 89 mg/dL 74-106 [facility] Basophil percentage 130 mmol/L 136-145 [facility] Basophil percentage 4.5 mmol/L 3.5-5.1 [facility] Basophil percentage 100 mmol/L 98-107 [facility] Basophils (Bld) [#/Vol] 6.4 10*3/uL 4.4-11.0 [facility] Basophils (Bld) [#/Vol] 4.4 10*3/uL 2.0-7.7 [facility] Basophils/100 WBC (Bld) 1.1 % 0-1 [facility] Basophils/100 WBC (Bld) 68.8 % 47-70 [facility] Basophils/100 WBC (Bld) 10.9 % 0-10 [facility] Basophils/100 WBC (Bld) 2.5 % 0-5 [facility] Chloride [Moles/Vol] 100 mmol/L 98-107 [facility] Eosinophils/100 WBC (Bld) 2.5 % 0-5 [facility] Glucose [Mass/Vol] 89 mg/dL 74-106 [facility] Hemoglobin (Bld) [Mass/Vol] 9.0 g/dL 12.0-15.0 [facility] Monocytes/100 WBC (Bld) 10.9 % 0-10 [facility] Neutrophils (Bld) [#/Vol] 4.4 10*3/uL 2.0-7.7 [facility] Neutrophils/100 WBC (Bld) 68.8 % 47-70 [facility] Potassium [Moles/Vol] 4.5 mmol/L 3.5-5.1 [facility] Sodium [Moles/Vol] 130 mmol/L 136-145 [facility] WBC (Bld) [#/Vol] 6.4 10*3/uL 4.4-11.0 [facility] CBC panel Auto (Bld)on 03-19 Erythrocyte distribution width (RBC) [Ratio] 16.3 % High 11.5-15.0 [facility] Comment on above: Order Comment: Speci men Type: BLOOD SPECIMEN Ordering Facility: [facility] Address: [address] [place] [address] Performed By: #### 1 4196-0, 88320-7 #### [facility] CLIA [id number] [address] [place] Hematocrit (Bld) [Volume fraction] 29.2 % Low 36.0-46.0 [facility] Comment on above: Order Comment: Speci men Type: BLOOD SPECIMEN Ordering Facility: [facility] Address: [address] [place] [address] Performed By: #### 1 4196-0, 37529-2 #### [facility] CLIA [id number] [address] [place] [address] [place] Hemoglobin (Bld) [Mass/Vol] 9.6 g/dL Low 11.5-15.5 [facility] Comment on above: Order Comment: Speci men Type: BLOOD SPECIMEN Ordering Facility: [facility] Address: [address] [place] [address] Performed By: #### 1 4196-0, 78098-2 #### [facility] CLIA [id number] [address] [place] MCH (RBC) [Entitic mass] 26.7 pg Normal 26.0-34.0 [facility] Comment on above: Order Comment: Speci men Type: BLOOD SPECIMEN Ordering Facility: [facility] Address: [address] [place] [address] Performed By: #### 1 4196-0, 03217-1 #### [facility] CLIA [id number] [address] MCHC (RBC) [Mass/Vol] 32.9 g/dL Normal 30.5-36.0 [facility] Comment on above: Order Comment: Speci men Type: BLOOD SPECIMEN Ordering Facility: [facility] Address: [address] [place] [address] Performed By: #### 1 4196-0, 40037-0 #### [facility] CLIA [id number] [address] MCV (RBC) [Entitic vol] 81.1 fL Normal 80.0-100.0 [facility] Comment on above: Order Comment: Speci men Type: BLOOD SPECIMEN Ordering Facility: [facility] Address: [address] [place] [address] Performed By: #### 1 4196-0, 31405-1 #### [facility] CLIA [id number] [address] [place] [address] Nucleated RBC (Bld) [#/Vol] 10*3/uL Normal <0.01 [facility] Comment on above: Order Comment: Speci men Type: BLOOD SPECIMEN Ordering Facility: [facility] Address: [address] [place] [address] Performed By: #### 1 4196-0, 72914-0 #### [facility] CLIA [id number] [address] Platelet mean volume (Bld) [Entitic vol] 9.6 fL Normal 9.0-12.7 [facility] Comment on above: Order Comment: Speci men Type: BLOOD SPECIMEN Ordering Facility: [facility] Address: [address] [place] [address] Performed By: #### 1 4196-0, 78371-6 #### [facility] CLIA [id number] [address] Platelets (Bld) [#/Vol] 144 10*3/uL Low 150-400 [facility] Comment on above: Order Comment: Speci men Type: BLOOD SPECIMEN Ordering Facility: [facility] Address: [address] [place], [place] [address] Performed By: #### 1 4196-0, 36370-3 #### [facility] CLIA [id number] [address] RBC (Bld) [#/Vol] 3.60 10*6/uL Low 3.90-5.20 [facility] Comment on above: Order Comment: Speci men Type: BLOOD SPECIMEN Ordering Facility: [facility] Address: [address] [place] [address] Performed By: #### 1 4196-0, 93869-5 #### [facility] CLIA [id number] [address] WBC (Bld) [#/Vol] 7.48 10*3/uL Normal 3.70-11.00 [facility] Comment on above: Order Comment: Speci men Type: BLOOD SPECIMEN Ordering Facility: [facility] Address: [address] [place] [address] Performed By: #### 1 4196-0, 70832-7 #### [facility] CLIA [id number] [address] [place] [address] Determination of erythrocyte mean corpuscular volume (MCV)Ordered By: Bob Elias on 03-19-2023 MCV (RBC) [Entitic vol] 81.5 fL 81-99 [facility] ED NOTEon 03-19-2023 ED NOTE HNO ID: [id number] Author: BIBI GONZALEZ RN Service: Emergency Medicine Author Type: Registered Nurse Type: ED Notes Filed: 03/19/2023 20:07 Note Text: CT notified pt is ready Normal [facility] ED NOTE HNO ID: [id number] Author: APRIL SOARES RN Service: ? Author Type: Registered Nurse Type: ED Notes Filed: 03/19/2023 18:06 Note Text: Bed: 07-ED Expected date: 03/19/23 Expected time: Means of arrival: [facility] Comments: MARTÍN MOMIN: LUCERNE TRANSFER Normal [facility] ED PROV NOTEon 03-19-2023 ED PROV NOTE HNO ID: [id number] Author: CHACHO ERNST DO Service: Emergency Medicine [...] who presents for pneumoperitoneum. Patient presents from [facility] where she initially presented after having worsening cough with hemoptysis. She states that a few weeks ago she was diagnosed with histoplasmosis for which she has been following with a aquatics specialist in [place]. She states that yesterday morning she was woken up from her sleep with persistent coughing and an episode of hemoptysis. She states that she has intermittently had blood tinge to her sputum but states that this was much more than normal. She is on Coumadin for history of prior DVT and states that she has been compliant with this. While she was at [place], she was found to have an INR [...] factor (HCC) 03/07/2015 Dr. Hurley ([facility]) Unspecified hemorrhoids without mention of complication [...] of her pneumoperitoneum. CHACHO ERNST 03/19/232058 Normal [facility] ED PROV NOTE HNO ID: [id number] Author: CHACHO ERNST DO Service: Emergency Medicine [...] presents with: Functional Transfers: Pt transferred from [place] ED for free air and perf bowel. Pt states she initially went to the hospital for ongoing sore throat and one episode of hemoptysis early this morning. Pt denies chest or abd pain. Pt tested positive for Covid at [place]. HPI Patient is a 77-year-old female with past medical history of DVT on Coumadin, COPD, recent diagnosis of histoplasmosis and Blastomyces, COVID-positive today presenting to the emergency department from was from [facility] due to possible bowel perf on imaging. Pt denies any pain currently. Pt reports that she went to [place] this morning after spitting up a small amount of bright red blood from a cough which has been ongoing since January. Pt reports having a sore throat at this time but denies any lightheadedness, CP, SOB, abdominal pain, and denies any nausea or vomiting. Per EMS, pt had an INR of 9.4 at [place]. Patient reports that she is on Coumadin [...] factor (HCC) 03/07/2015 Dr. Hurley ([facility]) Unspecified hemorrhoids without mention of complication [...] SPINE FUSN,POST INTERBODY 2012 Dr. Armando at [facility]. Diskectomy and laminectomy PAST SURGICAL HISTORY OF [...] is no (more content not included)... Normal [facility] Erythrocyte distribution wid th ratioOrdered By: Bob Schwiger on 03-19-2023 Erythrocyte distribution width (RBC) [Ratio] 16.3 % 11.6-14.6 [facility] Erythrocyte distribution wid th standard deviationOrdered By: Bob Elias on 03-19-2023 Erythrocyte distribution width (RBC) [Entitic vol] 48.3 fL 35.1-43.9 [facility] HISTORY PHYSICALon HISTORY PHYSICAL HNO ID: [id number] Author: PAMELA HALL MD Service: General Surgery [...] in the colon. INR on arrival to [place] was 9. She given Vitamin K and transferred here. Patient denies any abdominal pain, nausea, vomiting, fevers, or chills. Patient reports normal bowel movements. Slightly tachycardic on arrival. HDS. Repeat CBC, BMP, PT/INR pending. CTAP read in [facility], currently waiting on image transfer from [place]. Noprevious abdominal surgeries. Last colonoscopy in 2019 [...] factor (HCC) 03/07/2015 Dr. Hurley ([facility]) Unspecified hemorrhoids without mention of complication [...] SPINE FUSN,POST INTERBODY 2011 Dr. Armando at [facility]. Diskectomy and laminectomy PAST SURGICAL HISTORY OF [...] in the colon. INR on arrival to [place] was 9. She given Vitamin K and transferred here. Pneumatosis intestinalis (more content not included)... Normal [facility] Hematocrit Auto (Bld) [Volum e fraction]Ordered By: Bob Elias on 03-19-2023 Hematocrit (Bld) [Volume fraction] 27.7 % 37-47 [facility] Immature granulocytes/100 WB C Auto (Bld)Ordered By: Bob Elias on 03-19-2023 Immature granulocytes/100 WBC (Bld) 1.600 % 0.0-0.9 [facility] Comment on above: IG% - Immature Granu locytes (promyelocytes, myelocytes and metamyelocytes) > 1% indicates that a LEFT SHIFT is Present. International normalized rat io (INR) calculationOrdered By: Bob Elias on 03-19-2023 INR Coag (PPP) [Relative time] 9.4 {INR} [facility] Comment on above: CRITICAL VALUE VERIF IED. CALLED TO MYNOR MITCHELL (ER)03/19/23 1200 Chacho Bernal.RESULTS READ BACK BY SAME. Laboratory - Chemistry and C hemistry - challengeOrdered By: Bob Elias on 03-19-2023 CO2 [Moles/Vol] 26.0 mmol/L 21.0-32.0 [facility] Urea nitrogen/Creatinine [Mass ratio] 35.7 mg/mg 10-20 [facility] Laboratory - CoagulationOrde red By: Bob Elias on 03-19-2023 PT Coag (PPP) [Time] 78.0 s 11.7-14.9 [facility] Laboratory - Hematology and Cell countsOrdered By: Bob Elias on 03-19-2023 MCH (RBC) [Entitic mass] 26.5 pg 27.0-32.0 [facility] MCHC (RBC) [Mass/Vol] 32.5 g/dL 32-36 [facility] Nucleated RBC/100 WBC (Bld) [Ratio] 0 % 0-5 [facility] Platelets (Bld) [#/Vol] 145 10*3/uL 150-450 [facility] Laboratory - Microbiology an d Antimicrobial susceptibilityOrdered By: Bob Elias on 03-19-2023 SARS-CoV-2 (COVID-19) RNA GWEN+probe Ql (Unsp spec) SARS-CoV-2 (COVID 19 PCR) [facility] SARS-CoV-2 (COVID-19) RNA GWEN+probe Ql (Unsp spec) SARS-CoV-2 (COVID 19 PCR) [facility] Lactate (Bld) [Moles/Vol]on 03-19-2023 Lactate [Moles/Vol] 1.2 mmol/L Normal 0.5-2.2 [facility] Comment on above: Order Comment: Speci men Type: BLOOD SPECIMEN Ordering Facility: [facility] Address: [address] [place] [address] Performed By: #### 1 4196-0, 17021-3 #### [facility] CLIA [id number] [address] [place] [address] [place] No Panel InformationOrdered By: Bob Elias on 03-19-2023 Estimated Creatinine Clearance Calc 44.81 ml/min [facility] Estimated GFR (MDRD) Amer 73 mL/min >60 [facility] Comment on above: GFR Calc Estimated GFR (MDRD) Non-Af Amer 61 mL/min >60 [facility] Comment on above: Non- GFR Calc 26.5 pg 27.0-32.0 [facility] 32.5 g/dL 32- [facility] 145 K/mm3 150-450 [facility] 0 % 0-5 [facility] 78.0 SECONDS 11.7-14.9 [facility] 61 mL/min >60 [facility] 73 mL/min >60 [facility] 44.81 ml/min [facility] 35.7 RATIO 10-20 [facility] 26.0 mmol/L 21.0-32.0 [facility] SARS-CoV-2 (COVID 19 PCR) [facility] PT panel Coag (PPP)on 2023 INR Coag (PPP) [Relative time] {INR} High 0.9-1.3 [facility] Comment on above: Order Comment: Renay adkins Type: BLOOD SPECIMEN Ordering Facility: [facility] Address: [address] [place] [address] Result Comment: Halle min K Antagonist (VKA) Therapeutic Range: INR 2 to 3 (Target INR of 2.5) Note: For patients treated with VKA drugs, such as warfarin, the [employer] 2012 Guideline recommends [...] Chest 2012, 141:7S-47S Mitzi RA, et al. [facility] 2017, 70: 252-289 Performed By: #### 1 4196-0, 83635-0 #### [facility] CLIA [id number] [address] [place] PT Coag (PPP) [Time] 76.9 s High 9.7-13.0 [facility] Comment on above: Order Comment: Renay adkins Type: BLOOD SPECIMEN Ordering Facility: [facility] Address: [address] [place] [address] Performed By: #### 1 4196-0, 62054-4 #### [facility] CLIA [id number] [address] [place] [address] [place] Platelet mean volume [facility] (Bld) [Entitic vol]Ordered By: Bob Elias on 03-19-2023 Platelet mean volume (Bld) [Entitic vol] 10.3 fL 6.2-12.0 [facility] RBC Auto (Bld) [#/Vol]Ordere d By: Bob Elias on 03-19-2023 RBC (Bld) [#/Vol] 3.40 10*6/uL 4.2-5.4 [facility] Serum or plasma calcium monica urement (mass/volume)Ordered By: Bob Elias on 03-19-2023 Calcium [Mass/Vol] 9.1 mg/dL 8.5-10.1 [facility] Serum or plasma creatinine m easurement (mass/volume)Ordered By: Bob Elias on 03-19-2023 Creatinine [Mass/Vol] 0.95 mg/dL 0.55-1.02 [facility] Comment on above: The validity of the calculated GFR & GFRAA in patients over 70 years has not been determined. Clinical correlation is essential. Serum or plasma urea nitroge n measurement (mass/volume)Ordered By: Bob Elias on 03-19-2023 Urea nitrogen [Mass/Vol] 34 mg/dL 7-18 [facility] Thin prep Papanicolaou smear with manual screeningOrdered By: Bob Elias on 03-19-2023 Thin prep Papanicolaou smear with manual screening 4 5-15 [facility] COVID & INFLUENZA A/B & RSV NAAT, ROUTINEon 02-07-2023 FLUAV RNA GWEN+probe Ql (Unsp spec) Not detected Not Detected [facility] FLUBV RNA GWEN+probe Ql (Unsp spec) Not detected Not Detected [facility] RSV A RNA GWEN+probe Ql (Unsp spec) Not detected Not Detected [facility] SARS-CoV-2 (COVID-19) RNA GWEN+probe Ql (Resp) Not detected See comment [facility] XR CHEST 2V FRONTAL/LATon [facility] XR Chest PA and Lateralon IMPRESSION: Mild prominence markings RIGHT lung base may be due to known RIGHT middle lobe bronchiectasis. Small infiltrate cannot be excluded. Cement Loader: KRYSTAL Transcribe Date/Time: Feb 07 2023 11:42A Dictated by : JASMYN MÉNDEZ MD This examination was interpreted and the report reviewed and electronically signed by: JASMYN MÉNDEZ MD on Feb 07 2023 11:46AM [facility] DIVISION OF RADIOLOGY * * *Final Report* [...] soft tissues: Unremarkable. DIVISION OF RADIOLOGY Provider, [facility] - 02/07/2023 * * *Final Report* * [...] lobe bronchiectasis. Small infiltrate cannot be excluded. Cement Loader: KRYSTAL Transcribe Date/Time: Feb 07 2023 11:42A Dictated by : JASMYN MÉNDEZ MD This examination was interpreted and the report reviewed and electronically signed by: JASMYN MÉNDEZ MD on Feb 07 2023 11:46AM EST [facility] Radiology Study observation (narrative) [facility] XR Chest PA and LateralOrder ed By: Ccf Provider on 02-07-2023 [facility] INR (POC)on 01-04-2023 INR Coag (PPP) [Relative time] 2.6 {INR} High 0.8 - 1.2 [facility] Internal Quality Check Acceptable Cl [facility] SABINO SCREENING W TOMOon 11-17 [facility] ECG COMPLETEon 08-30-2022 Atrial Rate 75 BPM [facility] Calculated P [place] 63 degrees [facility] Calculated R [place] 46 degrees [facility] Calculated T [place] 58 degrees [facility] P-R Interval 156 ms [facility] QRS Duration 62 ms [facility] QT Interval 358 ms [facility] QTC Calculation (Bazett) 399 ms [facility] Ventricular Rate 75 BPM [facility] CT CHEST WO IVCONon 07-21-19 [facility] XR Pelvis and Hip - left AP and Lateral frogon 12-31-2021 IMPRESSION: No acute pathology. 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 Cement Loader: PSCB Transcribe Date/Time: Dec 31 2021 11:55A [...] acute pathology. 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 Cement Loader: KRYSTAL Transcribe Date/Time: Dec 31 2021 11:55A Dictated by : BANDAR BELL DO This examination was interpreted and the report reviewed and electronically signed by: BANDAR BELL DO on Dec 31 2021 11:58AM EST [facility] Radiology Study observation (narrative) [facility] XR Pelvis and Hip - left AP and Lateral frogOrdered By: Ccf Provider on 12-31-2021 [facility] No Panel Informationon 10-18 [facility] SABINO DIAGNOSTIC LTon 10-13-19 22 [facility] US BREAST LTD LTon 2 [facility] SABINO SCREENINGon 09-05-2021 [facility] INR in Blood by Coagulation assayon 07-07-2021 INR Coag (Bld) [Relative time] 1.7 {INR} [facility] Work Phone: Laboratory - Coagulationon 0 07-07-2021 PT Coag (PPP) [Time] 19.5 s 11.7-14.9 [facility] Work Phone: Histoplasma Ag, Urineon 02-19 Histoplasma Ag,Urine Not Detected Normal [facility] Comment on above: Performed By: #### H ISUO #### The performing lab is in the report. Interpretation Not Detected Normal Not Detected [facility] Comment on above: Result Comment: INTE [...] histoplasmosis. Test developed and characteristics determined by [facility]. See Compliance Statement B: [employer] Performed by [facility], [address] [place] [id number] [email or web address], Christopher Yen MD - Lab. Director Performed By: #### H ISUO #### The performing lab is in the report. Vital Signs Date Time Vital Sign Value Performing Clinician Facility 07-24-2024 10:25-0400 Body height 160.[address] Claudine Durán MD Work Phone: [facility] 07-24-2024 10:25-0400 Body weight 60.[address] Claudine Durán MD Work Phone: [facility] 07-22-2024 14:20-0400 Body height 157.5 cm Brissa Chester APRN.REGIONAL CONTROLLER Work Phone: [facility] 07-22-2024 14:20-0400 Body mass index (BMI) [Ratio] 23.67 kg/m2 Brissa Chester APRN.REGIONAL CONTROLLER Work Phone: [facility] 07-22-2024 14:20-0400 Body weight 58.7 kg Brissa Chester APRN.REGIONAL CONTROLLER Work Phone: [facility] 07-22-2024 14:20-0400 Diastolic blood pressure 65 mm[Hg] Brissa Chester APRN.REGIONAL CONTROLLER Work Phone: [facility] 07-22-2024 14:20-0400 Heart rate 75 /min Brissa Chester DIAMOND DRILLER HELPER.REGIONAL CONTROLLER Work Phone: [facility] 07-22-2024 14:20-0400 Respiratory rate 18 /min Brissa Chester DIAMOND DRILLER HELPER.REGIONAL CONTROLLER Work Phone: [facility] 07-22-2024 14:20-0400 SaO2% (BldA) [Mass fraction] 98 % Brissa Chester DIAMOND DRILLER HELPER.REGIONAL CONTROLLER Work Phone: [facility] 07-22-2024 14:20-0400 Systolic blood pressure 140 mm[Hg] Brissa Chester DIAMOND DRILLER HELPER.REGIONAL CONTROLLER Work Phone: [facility] 06-27-2024 08:19-0400 Body height 160.[address] Claudine Durán MD Work Phone: [facility] 06-27-2024 08:19-0400 Body weight 58.[address] Claudine Durán MD Work Phone: [facility] 06-20-2024 10:09-0400 Body mass index (BMI) [Ratio] 22.8 kg/m2 Dr. Claudine Durán MD Work Phone: [facility] 06-20-2024 10:09-0400 Body weight 58.[address] Claudine Durán MD Work Phone: [facility] 06-20-2024 10:09-0400 Diastolic blood pressure 74 mm[Hg] Dr. Claudine Durán MD Work Phone: [facility] 06-20-2024 10:09-0400 Heart rate 85 /min Dr. Claudine Durán MD Work Phone: [facility] 06-20-2024 10:09-0400 Respiratory rate 18 /min Dr. Claudine Durán MD Work Phone: [facility] 06-20-2024 10:09-0400 SaO2% (BldA) [Mass fraction] 98 % Dr. Claudine Durán MD Work Phone: 6(030)097-498604 [place] [address] 06-20-2024 10:09-0400 Systolic blood pressure 125 mm[Hg] Dr. Claudine Durán MD Work Phone: 0(300)413-909904 [place] [address] 05-28-2024 08:23-0400 Body mass index (BMI) [Ratio] 21.9 kg/m2 Dr. Claudine Durán MD Work Phone: 4(687)521-165504 [place] [address] 05-28-2024 08:20-0400 Body height 160.[address] Claudine Durán MD Work Phone: 4(286)414-410704 [place] [address] 05-28-2024 08:20-0400 Body weight 56.[address] Claudine Durán MD Work Phone: 0(602)489-390104 [place] [address] 05-28-2024 08:10-0400 Diastolic blood pressure 54 mm[Hg] Dr. Claudine Durán MD Work Phone: 0(446)057-955204 [place] [address] 05-28-2024 08:10-0400 Heart rate 84 /min Dr. Claudine Durán MD Work Phone: 8(411)881-242304 [place] [address] 05-28-2024 08:10-0400 SaO2% (BldA) [Mass fraction] 98 % Dr. Claudine Durán MD Work Phone: 1(282)824-091604 [place] [address] 05-28-2024 08:10-0400 Systolic blood pressure 100 mm[Hg] Dr. Claudine Durán MD Work Phone: 1(629)720-108004 [place] [address] 05-20-2024 12:53-0400 Body height 159.5 cm Jimbo Swanson DIAMOND DRILLER HELPER.ROCKBOARD LATHER Work Phone: 0(491)243-947912 [place] [address] 05-20-2024 12:53-0400 Body mass index (BMI) [Ratio] 23.23 kg/m2 Jimbo Swanson DIAMOND DRILLER HELPER.ROCKBOARD LATHER Work Phone: 9(970)408-824312 [place] [address] 05-20-2024 12:53-0400 Body weight 59.1 kg Jimbo Swanson DIAMOND DRILLER HELPER.ROCK[employer]ARD LATHER Work Phone: 7(642)217-847412 [place] [address] 05-20-2024 12:53-0400 Diastolic blood pressure 65 mm[Hg] Jimbo Swanson DIAMOND DRILLER HELPER.ROCKBOARD LATHER Work Phone: [facility] 05-20-2024 12:53-0400 Heart rate 92 /min Jimbo Swanson DIAMOND DRILLER HELPER.ROCKBOARD LATHER Work Phone: [facility] 05-20-2024 12:53-0400 Respiratory rate 16 /min Jimbo Swanson DIAMOND DRILLER HELPER.ROCKBOARD LATHER Work Phone: [facility] 05-20-2024 12:53-0400 Systolic blood pressure 113 mm[Hg] Jimbo Swanson DIAMOND DRILLER HELPER.ROCKBOARD LATHER Work Phone: [facility] 05-05-2024 08:34-0400 Diastolic blood pressure 71 mm[Hg] Adalid Maret DIAMOND DRILLER HELPER.REGIONAL CONTROLLER Work Phone: [facility] 05-05-2024 08:34-0400 Heart rate 82 /min Adalid Maret DIAMOND DRILLER HELPER.REGIONAL CONTROLLER Work Phone: [facility] 05-05-2024 08:34-0400 Systolic blood pressure 139 mm[Hg] Adalid Maret DIAMOND DRILLER HELPER.REGIONAL CONTROLLER Work Phone: [facility] 04-30-2024 13:04-0400 Body height 160 cm [facility] 04-30-2024 13:04-0400 Body mass index (BMI) [Ratio] 23.21 kg/m2 [facility] 04-30-2024 13:04-0400 Body weight 59.42 kg [facility] 04-30-2024 13:04-0400 Diastolic blood pressure 63 mm[Hg] [facility] 04-30-2024 13:04-0400 Heart rate 88 /min [facility] 04-30-2024 13:04-0400 Res[facility] rate 16 /[facility] 04-30-2024 13:04-0400 Systolic blood pressure 115 mm[Hg] [facility] 04-21-2024 10:44-0500 Body height 160 cm Geno Hart MD Work Phone: [facility] 04-21-2024 10:44-0500 Body mass index (BMI) [Ratio] 23.82 kg/m2 Geno Hart MD Work Phone: [facility] 04-21-2024 10:44-0500 Body temperature 97.9 [degF] Geno Hart MD Work Phone: [facility] 04-21-2024 10:44-0500 Body weight 61 kg Geno Hart MD Work Phone: [facility] 04-21-2024 10:44-0500 Diastolic blood pressure 84 mm[Hg] Geno Hart MD Work Phone: [facility] 04-21-2024 10:44-0500 Heart rate 103 /min Geno Hart MD Work Phone: [facility] 04-21-2024 10:44-0500 Respiratory rate 18 /min Geno Hart MD Work Phone: [facility] 04-21-2024 10:44-0500 SaO2% (BldA) [Mass fraction] 97 % Geno Hart MD Work Phone: [facility] 04-21-2024 10:44-0500 Systolic blood pressure 146 mm[Hg] Geno Hart MD Work Phone: [facility] 03-21-2024 09:28-0500 Body height 160 cm Juvencio Saeed MD Work Phone: [facility] 03-21-2024 09:28-0500 Body mass index (BMI) [Ratio] 23.03 kg/m2 Juvencio Saeed MD Work Phone: [facility] 03-21-2024 09:28-0500 Body weight 58.97 kg Juvencio Saeed MD Work Phone: [facility] 03-21-2024 09:28-0500 Diastolic blood pressure 77 mm[Hg] Juvencio Saeed MD Work Phone: [facility] 03-21-2024 09:28-0500 Heart rate 96 /min Juvencio Saeed MD Work Phone: [facility] 03-21-2024 09:28-0500 Respiratory rate 18 /min Juvencio Saeed MD Work Phone: [facility] 03-21-2024 09:28-0500 SaO2% (BldA) [Mass fraction] 96 % Juvencio Saeed MD Work Phone: [facility] Comment on above: RA 03-21-2024 09:28-0500 Systolic blood pressure 141 mm[Hg] Juvencio Saeed MD Work Phone: [facility] 02-29-2024 16:45-0500 Body mass index (BMI) [Ratio] 22.92 kg/m2 Claudine Durán MD Work Phone: [facility] 02-29-2024 16:45-0500 Body temperature 98.8 [degF] Claudine Durán MD Work Phone: [facility] 02-29-2024 16:45-0500 Body weight 58.7 kg Claudine Durán MD Work Phone: [facility] 02-29-2024 16:45-0500 Diastolic blood pressure 86 mm[Hg] Claudine Durán MD Work Phone: [facility] 02-29-2024 16:45-0500 Heart rate 85 /min Claudine Durán MD Work Phone: [facility] 02-29-2024 16:45-0500 Respiratory rate 16 /min Claudine Durán MD Work Phone: [facility] 02-29-2024 16:45-0500 SaO2% (BldA) [Mass fraction] 97 % Claudine Durán MD Work Phone: [facility] 02-29-2024 16:45-0500 Systolic blood pressure 138 mm[Hg] Claudine Durán MD Work Phone: [facility] 01-02-2024 09:09-0500 Body height 160 cm Ines Drew MD Work Phone: [facility] 01-02-2024 09:09-0500 Body mass index (BMI) [Ratio] 21.97 kg/m2 Ines Drew MD Work Phone: [facility] 01-02-2024 09:09-0500 Body weight 56.25 kg Ines Drew MD Work Phone: [facility] 01-02-2024 09:09-0500 Diastolic blood pressure 57 mm[Hg] Ines Drew MD Work Phone: [facility] 01-02-2024 09:09-0500 Heart rate 81 /min Ines Drew MD Work Phone: [facility] 01-02-2024 09:09-0500 SaO2% (BldA) [Mass fraction] 97 % Ines Drew MD Work Phone: [facility] 01-02-2024 09:09-0500 Systolic blood pressure 124 mm[Hg] Ines Drew MD Work Phone: [facility] 12-18-2023 11:02-0400 Body height 160 cm Geno Hart MD Work Phone: [facility] 12-18-2023 11:02-0400 Body mass index (BMI) [Ratio] 22.3 kg/m2 Geno Hart MD Work Phone: [facility] 12-18-2023 11:02-0400 Body temperature 98.71 [degF] Geno Hart MD Work Phone: [facility] 12-18-2023 11:02-0400 Body weight 57.11 kg Geno Hart MD Work Phone: [facility] 12-18-2023 11:02-0400 Diastolic blood pressure 75 mm[Hg] Geno Hart MD Work Phone: [facility] 12-18-2023 11:02-0400 Heart rate 84 /min Geno Hart MD Work Phone: [facility] 12-18-2023 11:02-0400 Respiratory rate 16 /min Geno Hart MD Work Phone: [facility] 12-18-2023 11:02-0400 SaO2% (BldA) [Mass fraction] 98 % Geno Hart MD Work Phone: [facility] 12-18-2023 11:02-0400 Systolic blood pressure 146 mm[Hg] Geno Hart MD Work Phone: [facility] 10-18-2023 10:03-0400 Body height 160 cm Bibi Alegria DIAMOND DRILLER HELPER.REGIONAL CONTROLLER Work Phone: [facility] 10-18-2023 10:03-0400 Body mass index (BMI) [Ratio] 20.62 kg/m2 Bibi Alegria DIAMOND DRILLER HELPER.REGIONAL CONTROLLER Work Phone: [facility] 10-18-2023 10:03-0400 Body weight 52.8 kg Bibi Alegria DIAMOND DRILLER HELPER.REGIONAL CONTROLLER Work Phone: [facility] 10-18-2023 10:03-0400 Diastolic blood pressure 60 mm[Hg] Bibi Alegria DIAMOND DRILLER HELPER.REGIONAL CONTROLLER Work Phone: [facility] 10-18-2023 10:03-0400 Heart rate 82 /min Bibi Alegria DIAMOND DRILLER HELPER.REGIONAL CONTROLLER Work Phone: [facility] 10-18-2023 10:03-0400 SaO2% (BldA) [Mass fraction] 99 % Bibi Alegria APRN.REGIONAL CONTROLLER Work Phone: [facility] 10-18-2023 10:03-0400 Systolic blood pressure 120 mm[Hg] Bibi Alegria DIAMOND DRILLER HELPER.REGIONAL CONTROLLER Work Phone: [facility] 10-11-2023 13:05-0400 Body mass index (BMI) [Ratio] 20.54 kg/m2 Jimbo Swanson DIAMOND DRILLER HELPER.ROCKBOARD LATHER Work Phone: [facility] 10-11-2023 13:05-0400 Body weight 52.6 kg Jimbo Swanson DIAMOND DRILLER HELPER.ROCKBOARD LATHER Work Phone: [facility] 10-11-2023 13:05-0400 Diastolic blood pressure 62 mm[Hg] Jimbo Swanson DIAMOND DRILLER HELPER.ROCKBOARD LATHER Work Phone: [facility] 10-11-2023 13:05-0400 Heart rate 68 /min Jimbo Swanson DIAMOND DRILLER HELPER.ROCKBOARD LATHER Work Phone: [facility] 10-11-2023 13:05-0400 Respiratory rate 16 /min Jimbo Swanson DIAMOND DRILLER HELPER.ROCKBOARD LATHER Work Phone: [facility] 10-11-2023 13:05-0400 Systolic blood pressure 107 mm[Hg] Jimbo Swanson DIAMOND DRILLER HELPER.ROCKBOARD LATHER Work Phone: [facility] 08-28-2023 08:48-0400 Body height 160 cm Geno Hart MD Work Phone: [facility] 08-28-2023 08:48-0400 Body mass index (BMI) [Ratio] 23.45 kg/m2 Geno Hart MD Work Phone: [facility] 08-28-2023 08:48-0400 Body temperature 98.29 [degF] Geno Hart MD Work Phone: [facility] 08-28-2023 08:48-0400 Body weight 60.06 kg Geno Hart MD Work Phone: [facility] 08-28-2023 08:48-0400 Diastolic blood pressure 69 mm[Hg] Geno Hart MD Work Phone: [facility] 08-28-2023 08:48-0400 Heart rate 79 /min Geno Hart MD Work Phone: [facility] 08-28-2023 08:48-0400 Respiratory rate 18 /min Geno Hart MD Work Phone: [facility] 08-28-2023 08:48-0400 SaO2% (BldA) [Mass fraction] 98 % Geno Hart MD Work Phone: [facility] 08-28-2023 08:48-0400 Systolic blood pressure 129 mm[Hg] Geno Hart MD Work Phone: [facility] 08-27-2023 08:25-0400 Body height 160 cm William Messina DO Work Phone: [facility] 08-27-2023 08:25-0400 Body mass index (BMI) [Ratio] 22.67 kg/m2 William Messina DO Work Phone: [facility] 08-27-2023 08:25-0400 Body weight 58.06 kg William Messina DO Work Phone: [facility] 08-27-2023 08:25-0400 Diastolic blood pressure 68 mm[Hg] William Messina DO Work Phone: [facility] 08-27-2023 08:25-0400 Heart rate 81 /min William Messina DO Work Phone: [facility] 08-27-2023 08:25-0400 SaO2% (BldA) [Mass fraction] 99 % William Messina DO Work Phone: [facility] 08-27-2023 08:25-0400 Systolic blood pressure 116 mm[Hg] William Messina DO Work Phone: [facility] 08-22-2023 10:38-0400 Body mass index (BMI) [Ratio] 23.19 kg/m2 Claudine Durán MD Work Phone: [facility] 08-22-2023 10:38-0400 Body temperature 96.01 [degF] Claudine Durán MD Work Phone: [facility] 08-22-2023 10:38-0400 Body weight 59.38 kg Claudine Durán MD Work Phone: [facility] 08-22-2023 10:38-0400 Diastolic blood pressure 72 mm[Hg] Claudine Durán MD Work Phone: [facility] 08-22-2023 10:38-0400 Heart rate 70 /min Claudine Durán MD Work Phone: [facility] 08-22-2023 10:38-0400 Respiratory rate 18 /min Claudine Durán MD Work Phone: [facility] 08-22-2023 10:38-0400 SaO2% (BldA) [Mass fraction] 98 % Claudine Durán MD Work Phone: [facility] 08-22-2023 10:38-0400 Systolic blood pressure 116 mm[Hg] Claudine Durán MD Work Phone: [facility] 08-08-2023 14:39-0400 Body mass index (BMI) [Ratio] 22.32 kg/m2 Twyla Mason DIAMOND DRILLER HELPER.REGIONAL CONTROLLER Work Phone: [facility] 08-08-2023 14:39-0400 Body weight 57.15 kg Twyla Mason DIAMOND DRILLER HELPER.REGIONAL CONTROLLER Work Phone: [facility] 08-08-2023 14:39-0400 Diastolic blood pressure 72 mm[Hg] Twyla Mason DIAMOND DRILLER HELPER.REGIONAL CONTROLLER Work Phone: [facility] 08-08-2023 14:39-0400 Heart rate 78 /min Twyla Mason DIAMOND DRILLER HELPER.REGIONAL CONTROLLER Work Phone: [facility] 08-08-2023 14:39-0400 Systolic blood pressure 136 mm[Hg] Twyla Mason DIAMOND DRILLER HELPER.REGIONAL CONTROLLER Work Phone: [facility] 07-10-2023 14:22-0400 Body mass index (BMI) [Ratio] 21.79 kg/m2 Jimbo Swanson DIAMOND DRILLER HELPER.ROCKBOARD LATHER Work Phone: [facility] 07-10-2023 14:22-0400 Body weight 55.79 kg Jimbo Swanson DIAMOND DRILLER HELPER.ROCKBOARD LATHER Work Phone: [facility] 07-10-2023 14:22-0400 Diastolic blood pressure 66 mm[Hg] Jimbo Swanson DIAMOND DRILLER HELPER.ROCKBOARD LATHER Work Phone: [facility] 07-10-2023 14:22-0400 Heart rate 94 /min Jimbo Swanson DIAMOND DRILLER HELPER.ROCKBOARD LATHER Work Phone: [facility] 07-10-2023 14:22-0400 Respiratory rate 16 /min Jimbo Swanson DIAMOND DRILLER HELPER.ROCKBOARD LATHER Work Phone: [facility] 07-10-2023 14:22-0400 Systolic blood pressure 119 mm[Hg] Jimbo Swanson DIAMOND DRILLER HELPER.ROCKBOARD LATHER Work Phone: [facility] 06-05-2023 14:44-0400 Body mass index (BMI) [Ratio] 21.91 kg/m2 Claudine Durán MD Work Phone: [facility] 06-05-2023 14:44-0400 Body temperature 98.2 [degF] Claudine Durán MD Work Phone: [facility] 06-05-2023 14:44-0400 Body weight 56.11 kg Claudine Durán MD Work Phone: [facility] 06-05-2023 14:44-0400 Diastolic blood pressure 74 mm[Hg] Claudine Durán MD Work Phone: [facility] 06-05-2023 14:44-0400 Heart rate 93 /min Claudine Durán MD Work Phone: [facility] 06-05-2023 14:44-0400 Respiratory rate 18 /min Claudine Durán MD Work Phone: [facility] 06-05-2023 14:44-0400 SaO2% (BldA) [Mass fraction] 96 % Claudine Durán MD Work Phone: [facility] 06-05-2023 14:44-0400 Systolic blood pressure 122 mm[Hg] Claudine Durán MD Work Phone: [facility] 04-30-2023 12:45-0400 Body temperature 97.6 [degF] Dr. Claudine Durán Work Phone: [facility] 04-30-2023 12:45-0400 Diastolic blood pressure 61 mm[Hg] Dr. Claudine Durán Work Phone: [facility] 04-30-2023 12:45-0400 Heart rate 97 /min Dr. Claudine Durán Work Phone: [facility] 04-30-2023 12:45-0400 Respiratory rate 16 /min Dr. Claudine Durán Work Phone: 1(869)641-220901 [place] [address] 04-30-2023 12:45-0400 SaO2% (BldA) [Mass fraction] 95 % Dr. Claudine Durán Work Phone: 3(774)111-332604 [place] [address] 04-30-2023 12:45-0400 Systolic blood pressure 102 mm[Hg] Dr. Claudine Durán Work Phone: 5(340)418-269404 [place] [address] 04-25-2023 12:25-0500 Body height 160.[address] Claudine Durán Work Phone: 2(932)172-575604 [place] [address] 04-25-2023 12:25-0500 Body weight 54.[address] Claudine Durán Work Phone: 0(480)387-169104 [place] [address] 04-24-2023 12:11-0500 Body mass index (BMI) [Ratio] 21.2 kg/m2 Dr. Claudine Durán Work Phone: 1(330)011-367504 [place] [address] 04-16-2023 07:18-0500 Heart rate 94 /min Dr. Claudine Durán Work Phone: 4(174)468-686704 [place] [address] 04-16-2023 07:18-0500 Respiratory rate 18 /min Dr. Claudine Durán Work Phone: 1(137)355-273704 [place] [address] 04-16-2023 07:18-0500 SaO2% (BldA) [Mass fraction] 98 % Dr. Claudine Durán Work Phone: 5(655)341-454904 [place] [address] 04-15-2023 14:36-0500 Body temperature 98.5 [degF] Dr. Claudine Durán Work Phone: 9(153)344-129604 [place] [address] 04-15-2023 14:36-0500 Diastolic blood pressure 61 mm[Hg] Dr. Claudine Durán Work Phone: 5(763)314-085804 [place] [address] 04-15-2023 14:36-0500 Systolic blood pressure 106 mm[Hg] Dr. Claudine Durán Work Phone: 2(768)835-538504 [place] [address] 04-11-2023 15:11-0500 Body height 160.[address] Claudine Durán Work Phone: 8(333)640-007801 [place] [address] 04-11-2023 15:11-0500 Body weight 58.[address] Claudine Durán Work Phone: 4(458)822-154304 [place] [address] 04-10-2023 14:06-0500 Body mass index (BMI) [Ratio] 22.9 kg/m2 Dr. Claudine Durán Work Phone: 6(954)195-003804 [place] [address] 04-05-2023 08:40-0500 Body temperature 98.1 [degF] Dr. Claudine Durán Work Phone: 6(978)085-527704 [place] [address] 04-05-2023 08:40-0500 Diastolic blood pressure 65 mm[Hg] Dr. Claudine Durán Work Phone: 0(909)300-675304 [place] [address] 04-05-2023 08:40-0500 Heart rate 98 /min Dr. Claudine Durán Work Phone: 6(609)744-079404 [place] [address] 04-05-2023 08:40-0500 Respiratory rate 16 /min Dr. Claudine Durán Work Phone: 6(000)652-590404 [place] [address] 04-05-2023 08:40-0500 SaO2% (BldA) [Mass fraction] 96 % Dr. Claudine Durán Work Phone: 8(480)626-571304 [place] [address] 04-05-2023 08:40-0500 Systolic blood pressure 117 mm[Hg] Dr. Claudine Durán Work Phone: 7(352)691-459904 [place] [address] 04-05-2023 01:48-0500 Body mass index (BMI) [Ratio] 21.5 kg/m2 Dr. Claudine Durán Work Phone: 7(427)534-618004 [place] [address] 04-05-2023 01:48-0500 Body weight 55.[address] Claudine Durán Work Phone: 8(134)247-216704 [place] [address] 04-04-2023 13:52-0500 Body height 160.[address] Claudine Durán Work Phone: 2(658)859-481804 [place] [address] 03-31-2023 20:00-0500 Diastolic blood pressure 50 mm[Hg] Dr. Claudine Durán Work Phone: 8(754)994-853404 [place] [address] 03-31-2023 20:00-0500 Heart rate 77 /min Dr. Claudine Durán Work Phone: 4(745)486-096304 [place] [address] 03-31-2023 20:00-0500 Respiratory rate 17 /min Dr. Claudine Durán Work Phone: 7(451)332-298204 [place] [address] 03-31-2023 20:00-0500 SaO2% (BldA) [Mass fraction] 98 % Dr. Claudine Durán Work Phone: 9(225)935-816304 [place] [address] 03-31-2023 20:00-0500 Systolic blood pressure 108 mm[Hg] Dr. Claudine Durán Work Phone: 9(960)657-862704 [place] [address] 03-31-2023 16:48-0500 Body height 160.[address] Claudine Durán Work Phone: 3(484)121-135104 [place] [address] 03-31-2023 16:48-0500 Body mass index (BMI) [Ratio] 23.4 kg/m2 Dr. Claudine Durán Work Phone: 4(807)020-523504 [place] [address] 03-31-2023 16:48-0500 Body temperature 98.3 [degF] Dr. Claudine Durán Work Phone: 7(955)924-997104 [place] [address] 03-31-2023 16:48-0500 Body weight 60.[address] Claudine Durán Work Phone: 3(387)853-460504 [place] [address] 03-28-2023 20:54-0500 Diastolic blood pressure 79 mm[Hg] Dr. Claudine Durán Work Phone: 9(572)578-306104 [place] [address] 03-28-2023 20:54-0500 Heart rate 91 /min Dr. Claudine Durán Work Phone: 2(768)389-696604 [place] [address] 03-28-2023 20:54-0500 Respiratory rate 19 /min Dr. Claudine Durán Work Phone: 7(398)091-191604 [place] [address] 03-28-2023 20:54-0500 SaO2% (BldA) [Mass fraction] 97 % Dr. Claudine Durán Work Phone: 3(626)258-188904 [place] [address] 03-28-2023 20:54-0500 Systolic blood pressure 121 mm[Hg] Dr. Claudine Durán Work Phone: 9(281)648-515704 [place] [address] 03-28-2023 16:33-0500 Body height 160.[address] Claudine Durán Work Phone: 1(362)330-253804 [place] [address] 03-28-2023 16:33-0500 Body mass index (BMI) [Ratio] 23.7 kg/m2 Dr. Claudine Durán Work Phone: 8(434)105-596104 [place] [address] 03-28-2023 16:33-0500 Body temperature 97.3 [degF] Dr. Claudine Durán Work Phone: 5(563)078-947104 [place] [address] 03-28-2023 16:33-0500 Body weight 60.[address] Claudnie Durán Work Phone: 0(947)623-775504 [place] [address] 03-27-2023 13:43-0500 Heart rate 101 /min Dr. Claudine Durán Work Phone: 6(455)379-667904 [place] [address] 03-27-2023 13:43-0500 Respiratory rate 19 /min Dr. Claudine Durán Work Phone: 6(672)315-035804 [place] [address] 03-27-2023 10:00-0500 Body temperature 98.2 [degF] Dr. Claudine Durán Work Phone: 8(151)210-891304 [place] [address] 03-27-2023 10:00-0500 Diastolic blood pressure 63 mm[Hg] Dr. Claudine Durán Work Phone: 2(469)846-722204 [place] [address] 03-27-2023 10:00-0500 SaO2% (BldA) [Mass fraction] 94 % Dr. Claudine Durán Work Phone: 3(491)284-180604 [place] [address] 03-27-2023 10:00-0500 Systolic blood pressure 105 mm[Hg] Dr. Claudine Durán Work Phone: 1(302)126-390104 [place] [address] 03-27-2023 05:41-0500 Body mass index (BMI) [Ratio] 22.6 kg/m2 Dr. Claudine Durán Work Phone: [facility] 03-27-2023 05:41-0500 Body weight 58.[address] Claudine Durán Work Phone: [facility] 03-26-2023 15:00-0500 Diastolic blood pressure 75 mm[Hg] [facility] 03-26-2023 15:00-0500 Heart rate 87 /min [facility] 03-26-2023 15:00-0500 Respiratory rate 19 /min [facility] 03-26-2023 15:00-0500 SaO2% (BldA) [Mass fraction] 95 % [facility] 03-26-2023 15:00-0500 Systolic blood pressure 128 mm[Hg] [facility] 03-26-2023 10:48-0500 Body height 165.1 cm [facility] 03-26-2023 10:48-0500 Body mass index (BMI) [Ratio] 23.3 kg/m2 [facility] 03-26-2023 10:48-0500 Body temperature 97.3 [degF] [facility] 03-26-2023 10:48-0500 Body weight 63.5 kg [facility] 03-19-2023 16:51-0500 Diastolic blood pressure 65 mm[Hg] [facility] 03-19-2023 16:51-0500 Systolic blood pressure 117 mm[Hg] [facility] 03-19-2023 10:07-0500 Body height 165.1 cm [facility] 03-19-2023 10:07-0500 Body mass index (BMI) [Ratio] 20.3 kg/m2 [facility] 03-19-2023 10:07-0500 Body temperature 98.3 [degF] [facility] 03-19-2023 10:07-0500 Body weight 55.48 kg [facility] 03-19-2023 10:07-0500 Heart rate 111 /min [facility] 03-19-2023 10:07-0500 Respiratory rate 16 /min [facility] 03-19-2023 10:07-0500 SaO2% (BldA) [Mass fraction] 100 % [facility] 02-07-2023 10:36-0500 Body temperature 98.6 [degF] Adri Callow DIAMOND DRILLER HELPER.REGIONAL CONTROLLER Work Phone: [facility] 02-07-2023 10:36-0500 Body weight 59.69 kg Adri Callow DIAMOND DRILLER HELPER.REGIONAL CONTROLLER Work Phone: [facility] 02-07-2023 10:36-0500 Diastolic blood pressure 82 mm[Hg] Adri Callow DIAMOND DRILLER HELPER.REGIONAL CONTROLLER Work Phone: [facility] 02-07-2023 10:36-0500 Heart rate 87 /min Adri Callow DIAMOND DRILLER HELPER.REGIONAL CONTROLLER Work Phone: [facility] 02-07-2023 10:36-0500 Respiratory rate 18 /min Adri Callow DIAMOND DRILLER HELPER.REGIONAL CONTROLLER Work Phone: [facility] 02-07-2023 10:36-0500 SaO2% (BldA) [Mass fraction] 98 % Adri Callow DIAMOND DRILLER HELPER.REGIONAL CONTROLLER Work Phone: [facility] 02-07-2023 10:36-0500 Systolic blood pressure 134 mm[Hg] Adri Callow DIAMOND DRILLER HELPER.REGIONAL CONTROLLER Work Phone: [facility] 01-04-2023 10:33-0500 Body weight 58.06 kg Jimbo Swanson DIAMOND DRILLER HELPER.ROCKBOARD LATHER Work Phone: [facility] 01-04-2023 10:33-0500 Diastolic blood pressure 75 mm[Hg] Jimbo Swanson DIAMOND DRILLER HELPER.ROCKBOARD LATHER Work Phone: [facility] 01-04-2023 10:33-0500 Heart rate 77 /min Jimbo Swanson DIAMOND DRILLER HELPER.ROCKBOARD LATHER Work Phone: [facility] 01-04-2023 10:33-0500 Respiratory rate 16 /min Jimbo Swanson DIAMOND DRILLER HELPER.ROCKBOARD LATHER Work Phone: [facility] 01-04-2023 10:33-0500 Systolic blood pressure 128 mm[Hg] Jimbo Swanson DIAMOND DRILLER HELPER.ROCKBOARD LATHER Work Phone: [facility] 10-27-2022 09:03-0400 Body weight 59.42 kg Jimbobetina Sans DIAMOND DRILLER HELPER.ROCKBOARD LATHER Work Phone: [facility] 10-27-2022 09:03-0400 Diastolic blood pressure 66 mm[Hg] Jimbo Swanson DIAMOND DRILLER HELPER.ROCKBOARD LATHER Work Phone: [facility] 10-27-2022 09:03-0400 Heart rate 76 /min Jimbo Swanson DIAMOND DRILLER HELPER.ROCKBOARD LATHER Work Phone: [facility] 10-27-2022 09:03-0400 Respiratory rate 16 /min Jimbo Swanson DIAMOND DRILLER HELPER.ROCKBOARD LATHER Work Phone: [facility] 10-27-2022 09:03-0400 Systolic blood pressure 119 mm[Hg] Jimbo Swanson DIAMOND DRILLER HELPER.ROCKBOARD LATHER Work Phone: [facility] 08-29-2022 09:26-0400 Body height 162.6 cm Rachelle Schulte APRN.REGIONAL CONTROLLER Work Phone: [facility] 08-29-2022 09:26-0400 Body weight 58.51 kg Rachelle Schulte APRN.REGIONAL CONTROLLER Work Phone: [facility] 08-29-2022 09:26-0400 Diastolic blood pressure 78 mm[Hg] Rachelle Schulte APRN.REGIONAL CONTROLLER Work Phone: [facility] 08-29-2022 09:26-0400 Heart rate 75 /min Rachelle Schulte APRN.REGIONAL CONTROLLER Work Phone: [facility] 08-29-2022 09:26-0400 SaO2% (BldA) [Mass fraction] 98 % Rachelle Schulte APRN.REGIONAL CONTROLLER Work Phone: [facility] 08-29-2022 09:26-0400 Systolic blood pressure 142 mm[Hg] Rachelle Schulte APRN.REGIONAL CONTROLLER Work Phone: [facility] 07-20-2022 09:28-0400 Body weight 58.06 kg Florence Collins MD Work Phone: [facility] 07-20-2022 09:28-0400 Diastolic blood pressure 72 mm[Hg] Florence Collins MD Work Phone: [facility] 07-20-2022 09:28-0400 Heart rate 50 /min Florence Collins MD Work Phone: [facility] 07-20-2022 09:28-0400 Respiratory rate 17 /min Florence Collins MD Work Phone: [facility] 07-20-2022 09:28-0400 SaO2% (BldA) [Mass fraction] 100 % Florence Collins MD Work Phone: [facility] 07-20-2022 09:28-0400 Systolic blood pressure 122 mm[Hg] Florence Collins MD Work Phone: [facility] 03-13-2022 10:13-0500 Body temperature 96.69 [degF] Claudine Durán MD Work Phone: [facility] 03-13-2022 10:13-0500 Body weight 59.56 kg Claudine Durán MD Work Phone: [facility] 03-13-2022 10:13-0500 Diastolic blood pressure 68 mm[Hg] Claudine Durán MD Work Phone: [facility] 03-13-2022 10:13-0500 Heart rate 75 /min Claudine Durán MD Work Phone: [facility] 03-13-2022 10:13-0500 Respiratory rate 18 /min Claudine Durán MD Work Phone: [facility] 03-13-2022 10:13-0500 SaO2% (BldA) [Mass fraction] 100 % Claudine Durán MD Work Phone: [facility] 03-13-2022 10:13-0500 Systolic blood pressure 112 mm[Hg] Claudine Durán MD Work Phone: [facility] 11-29-2021 10:07-0400 Body weight 58.51 kg Florence Collins MD Work Phone: [facility] 11-29-2021 10:07-0400 Diastolic blood pressure 76 mm[Hg] Florence Collins MD Work Phone: [facility] 11-29-2021 10:07-0400 Heart rate 92 /min Florence Collins MD Work Phone: [facility] 11-29-2021 10:07-0400 Respiratory rate 18 /min Florence Collins MD Work Phone: [facility] 11-29-2021 10:07-0400 SaO2% (BldA) [Mass fraction] 97 % Florence Collins MD Work Phone: [facility] 11-29-2021 10:07-0400 Systolic blood pressure 122 mm[Hg] Florence Collins MD Work Phone: [facility] 11-10-2021 09:22-0400 Body weight 60.33 kg Jimbo Swanson DIAMOND DRILLER HELPER.ROCKBOARD LATHER Work Phone: [facility] 11-10-2021 09:22-0400 Diastolic blood pressure 80 mm[Hg] Jimbo Swanson DIAMOND DRILLER HELPER.ROCKBOARD LATHER Work Phone: [facility] 11-10-2021 09:22-0400 Heart rate 76 /min Jimbo Swanson DIAMOND DRILLER HELPER.ROCKBOARD LATHER Work Phone: [facility] 11-10-2021 09:22-0400 Respiratory rate 16 /min Jimbo Swanson DIAMOND DRILLER HELPER.ROCKBOARD LATHER Work Phone: [facility] 11-10-2021 09:22-0400 Systolic blood pressure 152 mm[Hg] Jimbo Swanson DIAMOND DRILLER HELPER.ROCKBOARD LATHER Work Phone: [facility] 09-20-2021 13:45-0400 Body weight 58.51 kg Jimbo Swanson DIAMOND DRILLER HELPER.ROCKBOARD LATHER Work Phone: [facility] 09-20-2021 13:45-0400 Diastolic blood pressure 64 mm[Hg] Jimbo Swanson DIAMOND DRILLER HELPER.ROCKBOARD LATHER Work Phone: [facility] 09-20-2021 13:45-0400 Heart rate 85 /min Jimbo Swanson DIAMOND DRILLER HELPER.ROCKBOARD LATHER Work Phone: [facility] 09-20-2021 13:45-0400 SaO2% (BldA) [Mass fraction] 96 % Jimbo Swanson DIAMOND DRILLER HELPER.ROCKBOARD LATHER Work Phone: [facility] 09-20-2021 13:45-0400 Systolic blood pressure 128 mm[Hg] Jimbo Swanson DIAMOND DRILLER HELPER.ROCKBOARD LATHER Work Phone: [facility] 08-12-2021 11:01-0400 Body height 162.6 cm William Messina DO Work Phone: [facility] 08-12-2021 11:01-0400 Body weight 59.42 kg William Messina DO Work Phone: [facility] 08-12-2021 11:01-0400 Diastolic blood pressure 74 mm[Hg] William Messina DO Work Phone: [facility] 08-12-2021 11:01-0400 Heart rate 72 /min William Messina DO Work Phone: [facility] 08-12-2021 11:01-0400 SaO2% (BldA) [Mass fraction] 99 % William Messina DO Work Phone: [facility] 08-12-2021 11:01-0400 Systolic blood pressure 130 mm[Hg] Williamradhika Messina DO Work Phone: [facility] 07-11-2021 08:10-0400 Body weight 58.06 kg Claudine Durán MD Work Phone: [facility] 07-11-2021 08:10-0400 Diastolic blood pressure 74 mm[Hg] Claudine Durán MD Work Phone: [facility] 07-11-2021 08:10-0400 Heart rate 76 /min Claudine Durán MD Work Phone: [facility] 07-11-2021 08:10-0400 Systolic blood pressure 122 mm[Hg] Claudine Durán MD Work Phone: [facility] 2021 14:57-0400 Body height 162.6 cm Mirian Andujar MD Work Phone: [facility] 2021 14:57-0400 Body weight 58.33 kg Mirian Andujar MD Work Phone: [facility] 2021 14:57-0400 Diastolic blood pressure 67 mm[Hg] Mirian Andujar MD Work Phone: [facility] 2021 14:57-0400 Heart rate 98 /min Mirian Andujar MD Work Phone: [facility] 2021 14:57-0400 Respiratory rate 14 /min Mirian Andujar MD Work Phone: [facility] 2021 14:57-0400 SaO2% (BldA) [Mass fraction] 99 % Mirian Andujar MD Work Phone: [facility] 2021 14:57-0400 Systolic blood pressure 144 mm[Hg] Mirian Andujar MD Work Phone: [facility] 03-14-2021 08:08-0500 Body height 162.6 cm Claudine Durán MD Work Phone: [facility] 03-14-2021 08:08-0500 Body temperature 97.5 [degF] Claudine Durán MD Work Phone: [facility] 03-14-2021 08:08-0500 Body weight 58.06 kg Claudine Durán MD Work Phone: [facility] 03-14-2021 08:08-0500 Diastolic blood pressure 62 mm[Hg] Claudine Durán MD Work Phone: [facility] 03-14-2021 08:08-0500 Heart rate 87 /min Claudine Durán MD Work Phone: [facility] 03-14-2021 08:08-0500 Respiratory rate 14 /min Claudine Durán MD Work Phone: [facility] 03-14-2021 08:08-0500 SaO2% (BldA) [Mass fraction] 99 % Claudine Durán MD Work Phone: [facility] 03-14-2021 08:08-0500 Systolic blood pressure 118 mm[Hg] Claudine Durán MD Work Phone: [facility] Encounters Encounter Date Encounter Type Care Provider Facility Start: 08-21-2024 End: 08-21-2024 Anticoagulant drug monitoring [facility] Work Phone: [facility] Comment on above: Personal history of DVT (deep vein thrombosis) (Primary Dx) Start: 08-20-2024 ambulatory ZITA MOSS [facility] Start: 08-18-2024 End: 08-18-[address] Claudine Durán MD Work Phone: -[facility] Comment on above: Refill Request Start: 08-18-2024 End: 08-18-[address] Claudine Durán MD Work Phone: -[facility] Work Phone: Start: 08-06-2024 End: 08-06-2024 Anticoagulant drug monitoring [facility] Work Phone: [facility] Comment on above: Personal history of DVT (deep vein thrombosis) (Primary Dx) Start: 08-06-2024 End: 08-06-2024 ambulatory CLAUDINE DURÁN Facility:[facility] Start: 07-29-2024 End: 07-29-2024 ambulatory Jane Rick RN Work Phone: [employer] Start: 07-29-2024 End: 07-29-2024 Coordination of care plan Jane Rick RN Work Phone: [employer] Comment on above: Care Coordination (C gaston review and outreach for CHF GDMT Care Path/) Start: 07-23-2024 End: 07-23-2024 ambulatory Brissa Chester APRN.SANTY Work Phone: Cardiology Comment on above: ECHO and LAB RESULTS Start: 07-23-2024 End: 07-23-2024 E-mail encounter from caregiver Brissa Chester APRN.SANTY Work Phone: Cardiology Start: 07-22-2024 End: 07-22-2024 ambulatory CLAUDINE DURÁN Facility:[facility] Start: 07-22-2024 End: 07-22-2024 Patient encounter procedure Brissa Chester APRN.SANTY Work Phone: Cardiology Comment on above: S/P TAVR (transcathe ter aortic valve replacement) (Primary Dx); Nonrheumatic aortic valve stenosis; Nonrheumatic mitral valve stenosis; Nonrheumatic tricuspid valve regurgitation; Essential hypertension; Disseminated histoplasmosis; History of recurrent deep vein thrombosis (DVT); History of GI bleed; History of COPD Start: 07-22-2024 End: 07-22-2024 ambulatory CLAUDINE DURÁN Facility:[facility] Start: 07-21-2024 End: 07-21-2024 Anticoagulant drug monitoring [facility] Work Phone: [facility] Comment on above: Personal history of DVT (deep vein thrombosis) (Primary Dx) Start: 07-21-2024 End: 07-21-2024 ambulatory CLAUDINE DURÁN Facility:[facility] Start: 07-18-2024 End: 07-19-[address] Claudine Durán MD Work Phone: [facility] Work Phone: Start: 07-18-2024 End: 07-19-[address] Claudine Durán MD Work Phone: -Cardiac Rehab Work Phone: Start: 07-08-2024 End: 07-08-2024 ambulatory NYASIA WICK Facility:[facility] Start: 07-07-2024 End: 07-08-2024 Anticoagulant drug monitoring [facility] Work Phone: [facility] [place] Comment on above: Personal history of DVT (deep vein thrombosis) (Primary Dx) Refill Request Start: 07-07-2024 End: 07-07-2024 ambulatory CLAUDINE DURÁN Facility:[facility] Start: 07-02-2024 End: 07-02-2024 Refill Jimbo Jv MCCORMICK Work Phone: [facility] [place] Comment on above: Refill Request Start: 06-25-2024 End: 06-25-2024 ambulatory Pili Benitez RN [employer] Comment on above: Bi-Weekly Outreach ( Recurring) for Chronic Disease Management Start: 06-21-2024 End: 06-21-2024 Refill Claudine Durán MD Work Phone: [facility] [place] Comment on above: Refill Request Start: 06-20-2024 End: 06-20-[address] Diaz Puckett MD -[facility] Work Phone: Start: 06-20-2024 End: 06-23-2024 Refill Florence Collins MD Work Phone: Pulmonary Medicine Comment on above: Refill Request Start: 06-18-2024 End: 06-18-2024 ambulatory Claudine Durán Facility:[facility] Start: 06-18-2024 End: 06-18-[address] Claudine Durán MD Work Phone: -Cardiac Rehab Work Phone: Start: 06-16-2024 End: 06-16-2024 ambulatory GENO HART Facility:[facility] Start: 06-11-2024 End: 06-11-2024 ambulatory CLAUDINE DURÁN Facility:[facility] Start: [address] Claudine Durán MD Work Phone: -[facility]hab Work Phone: Start: 05-28-2024 End: 05-28-[address] Claudine Durán MD Work Phone: [facility] Work Phone: Start: 05-28-2024 End: 05-28-[address] Claudine Durán MD Work Phone: -Cardiac Rehab Work Phone: Start: 05-28-2024 End: 05-28-2024 ambulatory Claudine Durán Facility:[facility] Start: 05-26-2024 End: 05-26-2024 Patient Outreach Pili Benitez RN Sr. Strategic Sourcing Manager Management Comment on above: Transition Of Care [place] phone contact (Recurring) for Transitional Care Management Start: 05-21-2024 End: 05-22-2024 Telephone encounter Jimbo Swanson APRN.ROCKBOARD LATHER Work Phone: Internal Medicine [place] Comment on above: Consult Start: 05-20-2024 End: 05-20-2024 Patient encounter procedure Jimbo Swanson APRN.ROCKBOARD LATHER Work Phone: Internal Medicine [place] Comment on [...] Start: 05-20-2024 End: 05-20-2024 ambulatory JIMBO SWANSON Facility:[facility] Start: 05-20-2024 End: 05-20-2024 Anticoagulant drug monitoring [facility] Work Phone: [facility] [place] Comment on above: Personal history of DVT (deep vein thrombosis) (Primary Dx) Start: 05-19-2024 End: 05-19-2024 Patient Outreach Pili Benitez RN Sr. Strategic Sourcing Manager Management Comment on above: Transition Of Care [place] e[place] phone contact (Recurring) for Transitional Care Management, Started Bi-Weekly Outreach (Recurring) for Chronic Disease Management Start: 05-12-2024 End: 05-12-2024 Patient Outreach Pili Benitez RN Sr. Strategic Sourcing Manager Management Comment on above: Transition Of Care [place] phone contact (Recurring) for Transitional Care Management Start: 05-09-2024 End: 05-12-2024 Follow-up encounter Jimbo Swanson ROCKBOARD LATHER Work Phone: Internal Medicine [place] Comment on above: Anticoagulation Start: 05-09-2024 End: 05-09-2024 ambulatory JIMBO SWANSON Facility:[facility] Start: 05-05-2024 End: 05-05-2024 Patient Outreach Pili Benitez RN Sr. Strategic Sourcing Manager Management Comment on above: Transition Of Care [...] Evaluation and management of inpatient JUVENCIO SAEED Facility:[facility] Start: 05-01-2024 End: 05-01-2024 ambulatory CLAUDINE DURÁN Facility:[facility] Start: 05-01-2024 End: 05-01-2024 Anticoagulant drug monitoring [facility] Work Phone: [facility] [place] Comment on above: Personal history of DVT (deep vein thrombosis) (Primary Dx) Start: 04-30-2024 End: 04-30-2024 Admission to same day surgery center Anesthesia Clearance Work Phone: [facility] Work Phone: Start: 04-30-2024 End: 04-30-2024 ambulatory LEANDRA VENEGAS Facility:[facility] Start: 04-30-2024 End: 04-30-2024 Patient encounter [...] 04-30-2024 End: 04-30-2024 [facility] Start: 04-21-2024 End: 04-21-2024 ambulatory [facility] Facility:[facility] Start: 04-21-2024 End: 04-21-2024 Patient encounter procedure Geno Hart MD Work Phone: Res[facility] [place] Department of Infectious Disease Comment on above: Disseminated histopl asmosis (Primary Dx); Bronchiectasis without complication (HCC); COPD without exacerbation (HCC); Rheumatoid arthritis with positive rheumatoid factor, involving unspecified site (HCC); History of immunosuppressive therapy; History of penicillin allergy; Encounter for long-term (current) use of antibiotics; Counseling, unspecified Start: 04-16-2024 End: 04-16-2024 ambulatory Leandra Venegas DIAMOND DRILLER HELPER.ROCKBOARD LATHER Work Phone: Cardiology Comment on above: Structural Dental Cl earance Start: 04-15-2024 End: 04-15-2024 ambulatory Leandra Venegas APRN.ROCKBOARD LATHER Work Phone: Cardiology Start: 04-15-2024 End: 04-15-2024 Telephone encounter Leandra Venegas APRN.ROCKBOARD LATHER Work Phone: Cardiology Comment on above: Appointment ([facility] Start: 04-14-2024 End: 04-14-2024 ambulatory Pili Benitez RN Sr. Strategic Sourcing Manager Management Comment on above: Initial enrollment o [facility] for Chronic Disease Management Start: 04-05-2024 End: 04-05-2024 ambulatory Juvencio Saeed MD Work Phone: Cardiology Start: 04-03-2024 End: 04-03-2024 ambulatory CLAUDINE DURÁN Facility:[facility] Start: 04-03-2024 End: 04-03-2024 Anticoagulant drug monitoring [facility] Work Phone: [facility] [place] [...] 03-31-2024 End: 03-31-2024 ambulatory Yuparish Torres MA [employer] Comment on above: TAVR Meeting Start: 03-31-2024 End: 03-31-2024 E-mail encounter from caregiver Yuparish Torres MA [employer] Start: 03-31-2024 End: 03-31-2024 Patient encounter procedure Yudeshawn Torres SANDY [employer] Comment on above: [facility] Na v[facility] Outreach ([employer] High Risk - Attempt 3) Start: 03-26-2024 End: 03-26-2024 ambulatory Yu Torres MA [email or web address] Start: 03-26-2024 End: 03-26-2024 Patient encounter procedure Yu Torres MA [employer] Comment on above: Population Health Na vigation [...] Start: 03-24-2024 End: 03-25-2024 ambulatory CLAUDINE DURÁN Facility:[facility] Start: 03-23-2024 End: 03-23-2024 Telephone encounter Michael Beavers MD Work Phone: Cardiology Comment on above: Patient Education Start: 03-21-2024 Encounter for preprocedural cardiovascular examination CLAUDINE DURÁN [facility] Start: 03-21-2024 End: 03-21-2024 Subsequent hospital visit by physician Xr Chest Main J1 Work Phone: Radiology Comment on above: Nonrheumatic aortic valve stenosis [I35.0] Start: 03-21-2024 End: 03-21-2024 ambulatory Yu Torres MA [facility] Start: 03-21-2024 End: 03-21-2024 Patient encounter procedure [...] encounter status Juvencio Saeed MD Work Phone: [facility] Start: 02-29-2024 End: 02-29-2024 Office outpatient [...] Start: 02-29-2024 End: 02-29-2024 Anticoagulant drug monitoring [facility] Work Phone: [facility] [place] Comment on above: Personal history of DVT (deep vein thrombosis) (Primary Dx) Start: 02-29-2024 End: 02-29-2024 ambulatory CLAUDINE DURÁN Facility:[facility] Start: 02-20-2024 End: 02-21-2024 Dilshad Hart MD Work Phone: [facility] [place] Department of Infectious Disease Comment on above: Refill Request Start: 01-31-2024 End: 01-31-2024 [facility] Start: 01-31-2024 End: 01-31-2024 Anticoagulant drug monitoring [facility] Work Phone: [facility] [place] Comment on above: Personal history of DVT (deep vein thrombosis) (Primary Dx) Start: 01-29-2024 End: 01-29-2024 ambulatory Ilda Miller RN Work Phone: Sr. Strategic Sourcing Manager Management Comment on above: Community Monitoring Outreach (2nd attempt Telephonic Outreach CDM Home Monitoring) Start: 01-21-2024 End: 01-21-2024 ambulatory Ilda Miller RN Work Phone: Sr. Strategic Sourcing Manager Management Comment on above: Community Monitoring Outreach (Telephonic Outreach CDM Home Monitoring) Start: 01-18-2024 End: 01-18-2024 ambulatory CLAUDINE D [facility] Facility:[facility] Start: 01-10-2024 End: 01-10-2024 ambulatory [facility] Facility:[facility] Start: 01-10-2024 End: 01-10-2024 Anticoagulant drug monitoring [facility] Work Phone: [facility] [place] Comment on above: Personal history of DVT (deep vein thrombosis) (Primary Dx) Start: 01-08-2024 End: 01-08-2024 ambulatory Monica Aguila DIAMOND DRILLER HELPER.REGIONAL CONTROLLER Work Phone: Cardiology Start: 01-08-2024 End: 01-08-2024 Patient encounter procedure Monica Newman-Marshall DIAMOND DRILLER HELPER.REGIONAL CONTROLLER Work Phone: Cardiology Comment on above: TAVR Consult Start: 01-08-2024 End: 01-08-2024 Patient encounter status Monica Newman-Marshall DIAMOND DRILLER HELPER.REGIONAL CONTROLLER Work Phone: [facility] Start: 01-04-2024 End: 01-04-2024 Telephone encounter Geno Hart MD Work Phone: [place] [facility]ULT Comment on above: Results Start: 01-02-2024 End: 01-02-2024 Patient encounter procedure Ines Drew MD Work Phone: Cardiology Comment on above: Rheumatoid arthritis with positive rheumatoid factor, involving unspecified site (HCC) (Primary Dx); Nonrheumatic aortic valve stenosis; Nonrheumatic mitral valve stenosis; Pericardial effusion; Histoplasmosis Start: 01-02-2024 End: 01-02-2024 ambulatory CLAUDINE DURÁN Facility:[facility] Start: 12-27-2023 End: 12-27-2023 ambulatory CLAUDINE Adam [facility] Start: 12-27-2023 End: 12-27-2023 Anticoagulant drug monitoring [facility] Work Phone: [facility] [place] Comment on above: Personal history of DVT (deep vein thrombosis) (Primary Dx) Start: 12-20-2023 End: 12-20-2023 ambulatory Rosa Wallace RN Work Phone: Sr. Strategic Sourcing Manager Management Comment on above: community monitoring outreach (engagement) Start: 12-19-2023 End: 12-20-2023 Telephone encounter Claudine Durán MD Work Phone: Internal Medicine [place] Start: 12-19-2023 End: 12-19-2023 ambulatory Rosa Wallace RN Work Phone: Sr. Strategic Sourcing Manager Management Comment on above: community monitoring outreach (engagement) Start: 12-18-2023 End: 12-18-2023 ambulatory CLAUDINE DURÁN Facility:[facility] Start: 12-18-2023 End: 12-18-2023 Patient encounter procedure Geno Hart MD Work Phone: [facility] [place] Department of Infectious Disease Comment on above: Disseminated histopl asmosis (Primary Dx); Bronchiectasis without complication (HCC); COPD without exacerbation (HCC); Rheumatoid arthritis with positive rheumatoid factor, involving unspecified site (HCC); History of immunosuppressive therapy; History of penicillin allergy; Encounter for long-term (current) use of antibiotics; Counseling, unspecified; Disseminated histoplasmosis Start: 12-13-2023 End: 12-13-2023 ambulatory CLAUDINE DURÁN Facility:[facility] Start: 12-13-2023 End: 12-13-2023 Anticoagulant drug monitoring [facility] Work Phone: [facility] [place] Comment on above: Personal history of DVT (deep vein thrombosis) (Primary Dx) Start: 12-11-2023 End: 12-12-2023 Refill Twyla Cuevas APRN.CNP Work Phone: Internal Medicine [place] Comment on above: Refill Request Start: 12-09-2023 End: 12-11-2023 Refill Claudine Durán MD Work Phone: Internal Medicine [place] Comment on above: Refill Request Start: 11-29-2023 End: 11-29-2023 [facility] Start: 11-29-2023 End: 11-29-2023 Anticoagulant drug monitoring [facility] Work Phone: [facility] [place] Comment on above: Personal history of DVT (deep vein thrombosis) (Primary Dx) Start: 11-26-2023 End: 11-26-2023 Telephone encounter Geno Hart MD Work Phone: [facility] [place] Department of Infectious Disease Comment on above: Patient Question Start: 11-15-2023 End: 11-15-2023 Telephone encounter Claudine Durán MD Work Phone: [facility] [place] Comment on above: Orders (poc protime) Start: 11-15-2023 End: 11-15-2023 ambulatory [facility] Start: 11-15-2023 End: 11-15-2023 Anticoagulant drug monitoring [facility] Work Phone: [facility] [place] Comment on above: Personal history of DVT (deep vein thrombosis) (Primary Dx) Start: 11-08-2023 End: 11-08-2023 ambulatory CLAUDINE DURÁN Facility:[facility] Start: 11-08-2023 End: 11-08-2023 [facility] Work Phone: [facility] Comment on above: Personal history of DVT (deep vein thrombosis) (Primary Dx) Start: 11-03-2023 End: 11-06-2023 Refill Jimbo Swanson DIAMOND DRILLER HELPER.ROCKBOARD LATHER Work Phone: Internal Medicine [place] Comment on above: Refill Request Start: 11-02-2023 End: 11-02-2023 E-mail encounter from caregiver Bibi Sanderson Raji ROSALES.REGIONAL CONTROLLER Work Phone: Cardiology Start: 11-02-2023 End: 11-02-2023 Follow-up encounter Bibi Alegria APRN.REGIONAL CONTROLLER Work Phone: Cardiology Comment on above: Valve Follow Up Start: 10-30-2023 End: 10-30-2023 Telephone encounter William Messina DO Work Phone: Cardiology Comment on above: Forms Start: 10-30-2023 [facility] Start: 10-25-2023 End: 10-25-2023 ambulatory CLAUDINE D TALAMPAS Facility:[facility] Start: 10-25-2023 End: 10-25-2023 Anticoagulant drug monitoring [facility] Work Phone: [facility] Comment on above: Personal history of DVT (deep vein thrombosis) (Primary Dx) Start: 10-20-2023 End: 10-25-2023 Refill Jimbo Swanson DIAMOND DRILLER HELPER.ROCKBOARD LATHER Work Phone: Internal Medicine [place] Comment on above: Refill Request Start: 10-19-2023 End: 10-19-2023 ambulatory CLAUDINE D TAL[place] Facility:[facility] Start: 10-19-2023 End: 10-19-2023 [facility] Comment on above: Personal history of DVT (deep vein thrombosis) (Primary Dx) Start: 10-18-2023 End: 10-18-2023 ambulatory CLAUDINE D T[place] Facility:[facility] Start: 10-18-2023 End: 10-18-2023 Patient encounter procedure Bibi Alegria APRN.REGIONAL CONTROLLER Work Phone: Cardiology Comment on above: Aortic stenosis with bicuspid valve (Primary Dx); Pericardial effusion; Essential hypertension; Chronic heart failure with preserved ejection fraction (HFpEF) ([facility]); Mitral valve stenosis, non-rheumatic; Nonrheumatic tricuspid valve regurgitation Start: 10-17-2023 End: 10-17-2023 ambulatory Ilda Miller RN Work Phone: Sr. Strategic Sourcing Manager Management Comment on above: Community Monitoring Outreach (F/U engagement CD Home Monitoring) Start: 10-11-2023 End: 10-11-2023 ambulatory CLAUDINE D [place] Facility:[facility] Start: 10-11-2023 End: 10-11-2023 Office outpatient visit 25 minutes Jimbo Swanson APRN.CNS Work Phone: Internal Medicine [place] Comment on above: Aortic valve stenosi s, etiology of cardiac valve disease unspecified (Primary Dx); Mitral valve stenosis, unspecified etiology; Pericardial effusion; Gastrointestinal hemorrhage, unspecified gastrointestinal hemorrhage type; Rheumatoid arthritis with positive rheumatoid factor, involving unspecified site ([facility]); Edema, unspecified type; Blood loss anemia Start: 10-02-2023 ambulatory Claudine D [place] Facilit y:[facility] Start: 10-02-2023 End: 10-02-2023 ambulatory Claudine D [place] Facility:[facility] Start: 09-28-2023 End: 09-28-2023 ambulatory CLAUDINE D TALAMPAS Facility:[facility] Start: 09-27-2023 End: 09-27-2023 Anticoagulant drug monitoring [facility] Work Phone: [facility] [place] Comment on above: Personal history of DVT (deep vein thrombosis) (Primary Dx) Refill Request Start: 09-27-2023 Refill Twyla Cuevas APRN.REGIONAL CONTROLLER Work Phone: Internal Medicine [place] Comment on above: Med Change Request Start: 09-27-2023 End: 09-27-2023 ambulatory CLAUDINE D TALAMPAS Facility:[facility] Start: 09-21-2023 End: 09-21-2023 Anticoagulant drug monitoring [facility] Work Phone: Coumadin [facility] [place] Comment on above: Personal history of DVT (deep vein thrombosis) (Primary Dx) Start: 09-21-2023 End: 09-21-2023 ambulatory CLAUDINE D TALAMPAS Facility:[facility] Start: 09-04-2023 Telephone encounter Twyla de APRN.CNP Work Phone: Internal Medicine [place] Comment on above: Results Start: 09-03-2023 End: 09-03-2023 ambulatory [facility] Facility:[facility] Start: 09-03-2023 End: 09-03-2023 ambulatory [facility] Facility:[facility] Start: 08-31-2023 ambulatory Ilda Miller RN Work Phone: Sr. Strategic Sourcing Manager Management Comment on above: Community Monitoring Outreach (F/U engagement CD Home Monitoring) Start: 08-30-2023 End: 08-30-2023 Anticoagulant drug monitoring [facility] Work Phone: Coumadin [facility] Comment on above: Personal history of DVT (deep vein thrombosis) (Primary Dx) Refill Request Start: 08-30-2023 End: 08-30-2023 Subsequent hospital visit by physician [facility] ([facility]) Work Phone: [facility] Comment on above: Disseminated histopl asmosis [B39.9] Start: 08-30-2023 End: 08-30-2023 ambulatory CLAUDINE D TALAMPAS Facility:[facility] Start: 08-28-2023 End: 08-28-2023 [facility] Start: 08-28-2023 End: 08-28-2023 Patient encounter procedure Geno Hart MD Work Phone: [facility] [place] Department of Infectious Disease Comment on above: [...] Essential hypertension; Pericardial effusion (noninflammatory); Leg edema; FPC current use of anticoagulant therapy Start: 08-27-2023 End: 08-27-2023 ambulatory CLAUDINE DURÁN Facility:[facility] Start: 08-24-2023 Telephone encounter William Messina DO Work Phone: Cardiology Start: 08-22-2023 End: 08-22-2023 ambulatory CLAUDINE DURÁN Facility:[facility] Start: 08-22-2023 End: 08-22-2023 Office outpatient visit 25 minutes Claudine Durán MD Work Phone: Internal Medicine [place] Comment on above: Anemia, unspecified type (Primary Dx); Bilateral lower extremity edema; Chronic anticoagulation; Moderate to severe aortic stenosis; Disseminated histoplasmosis; Nodule of lower lobe of left lung; Encounter for long-term current use of medication Start: 08-22-2023 End: 08-22-2023 ambulatory CLAUDINE Adam DURÁN Facility:[facility] Start: 08-22-2023 End: 08-22-2023 Anticoagulant drug monitoring [facility] Work Phone: Coumadin [facility] [place] Comment on above: Personal history of DVT (deep vein thrombosis) (Primary Dx) Start: 08-09-2023 End: 08-09-2023 Anticoagulant drug monitoring [facility] Work Phone: Coumadin [facility] [place] Comment on above: Personal history of DVT (deep vein thrombosis) (Primary Dx) Start: 08-08-2023 End: 08-08-2023 Patient encounter procedure Twyla Cuevas APRN.CNP Work Phone: Internal Medicine [place] Comment on above: 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 rheumatoid factor (HCC) (Primary Dx); Edema, unspecified type; Encounter for therapeutic drug monitoring Start: 08-07-2023 Refill Claudine tavares MD Work Phone: [facility] Medicine [place] Comment on above: Refill Request Start: 07-31-2023 Refill Claudine tavares MD Work Phone: [facility] [place] Comment on above: Refill Request Start: 07-28-2023 Refill Jimbo Swanson APRN.ROCKBOARD LATHER Work Phone: Internal Medicine [place] Comment on above: Refill Request Start: 07-26-2023 End: 07-26-2023 Anticoagulant drug monitoring [facility] Work Phone: [facility] [place] Comment on above: 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) Start: 07-20-2023 Telephone encounter Claudine valderrama MD Work Phone: Internal Medicine [place] Comment on above: Medication Problem Start: 07-17-2023 Refill Claudine tavares MD Work Phone: [facility] [place] Comment on above: Refill Request Right knee pain, uns pecified chronicity (Primary Dx) Start: 07-12-2023 Telephone encounter Jimbo sanchez APRN.ROCKBOARD LATHER Work Phone: Internal Medicine [place] Comment on above: Results Start: 07-12-2023 End: 07-12-2023 Anticoagulant drug monitoring [facility] Work Phone: [facility] [place] Comment on above: Personal history of DVT (deep vein thrombosis) (Primary Dx) Start: 07-10-2023 End: 07-10-2023 Office outpatient visit 25 minutes Jimbo Swanson APRN.ROCKBOARD LATHER Work Phone: Internal Medicine [place] Comment on above: Acute pain of right knee (Primary Dx); Chronic anticoagulation; Hip pain, acute, left; Pain and swelling of right lower leg Start: 07-05-2023 ambulatory Ilda Miller RN Work Phone: Sr. Strategic Sourcing Manager Management Comment on above: Community Monitoring Outreach (F/U engagement CDM Home Monitoring) Start: 07-05-2023 End: 07-05-2023 [facility] Work Phone: [facility] [place] Comment on above: Personal history of DVT (deep vein thrombosis) (Primary Dx) Start: 07-01-2023 Refill Twyla Cuevas APRN.CNP Work Phone: Internal Medicine [place] Comment on above: Refill Request Start: 06-07-2023 Refill Claudine tavares MD Work Phone: [address] [place] [address] Comment on above: Refill Request Start: 06-05-2023 End: 06-05-2023 Office outpatient visit 40 minutes Claudine Durán MD Work Phone: [facility] [place] Comment on above: Anemia, unspecified type (Primary Dx); Elevated LFTs; COPD without exacerbation (HCC); Essential hypertension; Cough due to bronchospasm; Chronic anticoagulation; Encounter for long-term current use of medication; Gastric ulcer with hemorrhage, unspecified chronicity Start: 05-31-2023 End: 05-31-[address] Claudine Durán Work Phone: [facility] Work Phone: Start: 05-31-2023 End: 05-31-2023 Dr. Claudine Durán Work Phone: [facility] Start: 05-29-2023 End: 05-29-[address] Claudine Durán Work Phone: [facility] Work Phone: Start: 05-29-2023 End: 05-29-2023 Dr. Claudine Durán Work Phone: [facility] Start: 05-28-2023 End: 05-28-[address] Claudine Durán Work Phone: [facility] Work Phone: Start: 05-28-2023 End: 05-28-2023 Dr. Claudine Durán Work Phone: [facility] Start: 05-24-2023 End: 05-24-[address] Claudine Durán Work Phone: [facility] Work Phone: Start: 05-24-2023 End: 05-24-2023 Dr. Claudine Durán Work Phone: [facility] Start: 05-21-2023 End: 05-21-[address] Claudine Durán Work Phone: [facility] Work Phone: Start: 05-21-2023 End: 05-21-2023 Dr. Claudine Durán Work Phone: [facility] Start: 05-17-2023 End: 05-17-[address] Claudine Durán Work Phone: [facility] Work Phone: Start: 05-17-2023 End: 05-17-2023 Dr. Claudine Durán Work Phone: [facility] Start: 05-15-2023 End: 05-15-[address] Claudine Durán Work Phone: [facility] Work Phone: Start: 05-15-2023 End: 05-15-2023 Dr. Claudine Durán Work Phone: [facility] Start: 05-14-2023 End: 05-14-[address] Claudine Durán Work Phone: [facility] Work Phone: Start: 05-14-[address] Claudine hurt Work Phone: [facility] Start: 05-14-2023 End: 05-14-2023 Dr. Claudine Durán Work Phone: [facility] Start: 05-10-2023 End: 05-10-[address] Claudine Durán Work Phone: [facility] Work Phone: Start: 05-10-[address] Claudine hurt Work Phone: [facility] Start: 05-10-2023 End: 05-10-2023 Dr. Claudine Durán Work Phone: [facility] Start: 05-07-2023 End: 05-07-[address] Claudine Durán Work Phone: [facility] Work Phone: Start: 05-07-2023 End: 05-07-[address] Claudine Durán Work Phone: [facility] Start: 05-07-2023 End: 05-07-2023 Dr. Claudine Durán Work Phone: [facility] Start: 05-03-2023 End: 05-03-[address] Claudine Durán Work Phone: [facility] Work Phone: Start: 05-03-[address] Claudine hurt Work Phone: [facility] Start: 05-03-2023 End: 05-03-2023 Dr. Claudine Durán Work Phone: [facility] Start: 05-01-2023 End: 05-01-2023 Dr. Claudine Durán Work Phone: [facility] Work Phone: Start: 05-01-2023 End: 05-01-[address] Claudine Durán Work Phone: [facility] Work Phone: Start: 05-01-2023 End: 05-01-2023 Departed Referred Dr. Claudine Durán Work Phone: [facility] Start: 05-01-[address] Claudine hurt Work Phone: [facility] Start: 05-01-2023 End: 05-01-2023 Dr. Claudine Durán Work Phone: [facility] [place] Start: 04-30-2023 Telephone encounter Claudine valderrama MD Work Phone: [facility] [place] Comment on above: Clinical Update Start: 04-30-2023 End: 04-30-2023 Dr. Claudine Durán Work Phone: [facility] Work Phone: Start: 04-10-2023 Non-patient / Non-visit Dr. Sabrina Durán Work Phone: [facility] Start: 04-10-2023 Dr. Claudine avila Work Phone: [facility] Start: 04-10-2023 End: 04-10-[address] Claudine Durán Work Phone: [facility] Work Phone: Start: 04-10-2023 End: 04-10-[address] Claudine Durán Work Phone: [facility] Work Phone: Start: 04-10-2023 End: 04-10-2023 Dr. Claudine Durán [facility] Phone[facility] Work Phone: Start: 04-09-2023 Non-patient / Non-visit Dr. Sabrina Durán Work Phone: [facility] Work Phone: Start: 04-09-2023 Dr. Claudine avila Work Phone: [facility] Work Phone: Start: 04-05-2023 End: 04-30-2023 Evaluation and management of inpatient Dr. Claudine Durán [facility] Start: 04-05-2023 End: 04-30-2023 Dr. Claudine Durán Work Phone: [facility] Start: 04-05-2023 Non-patient / Non-visit Dr. Sabrina Durán Work Phone: [facility] Work Phone: Start: 04-05-2023 Dr. Claudine avila Work Phone: [facility] Work Phone: Start: 04-04-2023 Non-patient / Non-visit Dr. Sabrina Durán Work Phone: [facility] Work Phone: Start: 04-04-2023 Dr. Claudine avila Work Phone: [facility] Work Phone: Start: 04-04-2023 Non-patient / Non-visit Dr. Sabrina Durán Work Phone: [facility] Start: 04-04-2023 Dr. Claudine avila Work Phone: [facility] Start: 04-03-2023 Non-patient / Non-visit Dr. Sabrina Durán Work Phone: [facility] Start: 04-03-2023 Dr. Claudine avila Work Phone: [facility] Start: 04-02-2023 Non-patient / Non-visit Dr. Sabrina Durán Work Phone: [facility] Work Phone: Start: 04-02-2023 Dr. Claudine avila Work Phone: [facility] Work Phone: Start: 04-02-2023 Non-patient / Non-visit Dr. Sabrina Durán Work Phone: [facility] Start: 04-02-2023 Dr. Claudine avila Work Phone: [facility] Start: 04-02-2023 Non-patient / Non-visit Dr. Sabrina Durán Work Phone: [facility] Start: 04-02-2023 Dr. Claudine avila Work Phone: [facility] Start: 04-02-2023 Non-patient / Non-visit Dr. Sabrina Durán Work Phone: [facility] Start: 04-02-2023 Dr. Claudine avila Work Phone: [facility] Start: 04-01-2023 Non-patient / Non-visit Dr. Sabrina Durán Work Phone: [facility] Start: 04-01-2023 Dr. Claudine avila Work Phone: [facility] Start: 04-01-2023 Non-patient / Non-visit Dr. Sabrina Durán Work Phone: [facility] Work Phone: Start: 04-01-2023 Dr. Claudine avila Work Phone: [facility] Work Phone: Start: 03-31-2023 End: 04-05-2023 Evaluation and management of inpatient Dr. Claudine Durán [facility] Phone[facility] Work Phone: Start: 03-31-2023 End: 04-05-2023 Dr. Claudine Durán Work Phone: [facility] Work Phone: Start: 03-28-2023 End: 03-28-2023 Emergency department patient visit Dr. Claudine Durán Work Phone: [facility] Work Phone: Start: 03-28-2023 End: 03-28-2023 Dr. Claudine Durán Work Phone: [facility] Work Phone: Start: 03-27-2023 Non-patient / Non-visit Dr. Sabrina Durán Work Phone: [facility] Work Phone: Start: 03-27-2023 Dr. Claudine avila Work Phone: [facility] Work Phone: Start: 03-27-2023 E-mail encounter fro m caregiver William Messina DO Work Phone: [facility] Start: 03-27-2023 Patient encounter procedure William Messina DO Work Phone: Cardiology Comment on above: Appointment Start: 03-26-2023 End: 03-27-2023 Evaluation and management of inpatient [facility] Work Phone: Start: 03-26-2023 observation encounter [facility] Work Phone: Start: 03-26-2023 End: 03-27-2023 Dr. Claudine Durán Work Phone: [facility] Work Phone: Start: 03-23-2023 Telephone encounter Rachelle Leonard DIAMOND DRILLER HELPER.REGIONAL CONTROLLER Work Phone: [place] [facility] Comment on above: Appointment Start: 03-19-2023 End: 03-25-2023 Evaluation and management of inpatient CLAUDINE DRUÁN Facility:[facility] Start: 03-19-2023 End: 03-19-2023 Emergency department patient visit [facility] Work Phone: Start: 03-19-2023 End: 03-19-2023 Dr. Claudine Durán Work Phone: [facility] Work Phone: Start: 03-15-2023 ambulatory Claudine tavares MD Work Phone: [facility] [place] Comment on above: histoplasmosis Start: 02-27-2023 Telephone encounter Claudine valderrama MD Work Phone: [facility] [place] Comment on above: Results (worsening l iver enzymes) Start: 02-07-2023 End: 02-07-2023 Subsequent hospital visit by physician [facility] Work Phone: Radiology Comment on above: Acute cough [R05.1] Start: 02-07-2023 End: 02-07-2023 Patient encounter procedure Adri Zaragoza DIAMOND DRILLER HELPER.REGIONAL CONTROLLER Work Phone: [place] [facility] Comment on above: Acute cough (Primary Dx) Start: 02-02-2023 End: 02-02-2023 Anticoagulant drug monitoring Anticoag [facility] Work Phone: [facility] [place] Comment on above: Personal history of DVT (deep vein thrombosis) (Primary Dx) Start: 01-24-2023 Refill Teresa barboza MD Work Phone: Pulmonary Medicine Comment on above: Refill Request Start: 01-17-2023 End: 01-17-2023 [facility] Work Phone: [facility] [place] Comment on above: Embolism and thrombo sis (HCC) (Primary Dx) Start: 01-10-2023 End: 01-10-2023 Anticoagulant drug monitoring [facility] Work Phone: [facility] [place] Comment on above: Personal history of DVT (deep vein thrombosis) (Primary Dx) Start: 01-04-2023 End: 01-04-2023 Office outpatient visit 15 minutes Jimbo Sanmaría [facility] Work Phone: [facility] [place] Comment on above: Encounter for immuni zation (Primary Dx) Start: 01-04-2023 End: 01-04-2023 Anticoagulant drug [facility] Work Phone: [facility] [place] Comment on above: Embolism and thrombo sis (HCC) (Primary Dx) Start: 12-20-2022 Refill Claudine tavares MD Work Phone: [facility] [place] Comment on above: Refill Request Start: 12-14-2022 End: 12-14-2022 Anticoagulant drug monitoring [facility] Work Phone: [facility] [place] Comment on above: Embolism and thrombo sis (HCC) (Primary Dx) Start: 12-07-2022 End: 12-07-2022 Anticoagulant drug [facility] Work Phone: [facility] [place] Comment on above: Embolism and thrombo sis (HCC) (Primary Dx) Start: 11-20-2022 Documentation procedure Mammog adrian Coordinator [facility] Start: 11-20-2022 Letter encounter Mammography Coordinator [facility] Department Start: 11-17-2022 End: 11-17-2022 Subsequent hospital visit by physician Screen Mammo [facility] Mammogram Comment on above: Encounter for screen ing mammogram for breast cancer [Z12.31] Start: 11-09-2022 Telephone encounter Claudine valderrama MD Work Phone: [facility] [place] Comment on above: Orders (protime) Start: 11-09-2022 End: 11-09-2022 Anticoagulant drug monitoring [facility] Work Phone: [facility] [place] Comment on above: Embolism and thrombo [...] Start: 10-31-2022 ambulatory Ashly Shay RN NURSE MANAGER PATHOLOGY Comment on above: Medication Request ( Warfarin) Refill Request Start: 10-27-2022 End: 10-27-2022 Office outpatient visit 25 minutes Jimbo Swanson APRN.ROCKBOARD LATHER Work Phone: Internal Medicine [place] Comment on above: Essential hypertensi on (Primary [...] Start: 10-26-2022 End: 10-26-2022 Anticoagulant drug monitoring [facility] Work Phone: [facility] [place] Comment on above: Personal history of DVT (deep vein thrombosis) (Primary Dx) Start: 10-12-2022 End: 10-12-2022 Anticoagulant drug monitoring [facility] Work Phone: [facility] [place] Comment on above: FPC current us e of anticoagulant therapy (Primary Dx) Start: 10-06-2022 Refill Jimbo Swanson APRN.CNS Work Phone: [facility] [place] Comment on above: Refill Request Start: 09-25-2022 Telephone encounter Rachelle Schulte APRN.REGIONAL CONTROLLER Work Phone: Cardiology Comment on above: Results Start: 09-14-2022 Telephone encounter Claudine valderrama MD Work Phone: [facility] [place] Comment on above: Anticoagulation Start: 09-07-2022 End: 09-07-2022 Anticoagulant drug monitoring Anticoag [facility] Work Phone: [facility] [place] Comment on above: Personal history of DVT (deep vein thrombosis) (Primary Dx) Start: 08-29-2022 End: 08-29-2022 Office outpatient visit 15 minutes Rachelle Schulte APRN.REGIONAL CONTROLLER Work Phone: Cardiology Comment on above: Aortic [...] 07-20-2022 Subsequent hospital visit by physician [facility] (I-Stat) Work Phone: Cat Scan Comment on above: Lung nodules [R91.8] Start: 06-29-2022 End: 06-29-2022 Anticoagulant drug monitoring [facility] Work Phone: [facility] [place] Comment on above: Personal history of DVT (deep vein thrombosis) (Primary Dx) Start: 05-31-2022 ambulatory [facility] Provider Sr. Strategic Sourcing Manager Management Comment on above: Home Monitoring Ques tionnaire Reminder + Happy Belated Birthday! Start: 05-31-2022 E-mail encounter fro m caregiver [facility] Provider [facility] Start: 05-23-2022 Telephone encounter Claudine valderrama MD Work Phone: [facility] [place] Comment on above: Clearance for surger y Start: 05-04-2022 End: 05-04-2022 Anticoagulant drug monitoring [facility] Work Phone: [facility] [place] Comment on above: Personal history of DVT (deep vein thrombosis) (Primary Dx) Start: 04-21-2022 ambulatory [facility] Provider Sr. Strategic Sourcing Manager Management Comment on above: Home Monitoring Prog jelani Reminder Start: 04-21-2022 E-mail encounter fro m caregiver [facility] Provider [facility] Start: 04-06-2022 End: 04-06-2022 Anticoagulant drug monitoring [facility] Work Phone: [facility] [place] Comment on above: Personal history of DVT (deep vein thrombosis) (Primary Dx) Start: 03-30-2022 End: 03-30-2022 Anticoagulant drug monitoring [facility] Work Phone: [facility] [place] Comment on above: Personal history of DVT (deep vein thrombosis) (Primary Dx) Start: 03-13-2022 End: 03-13-2022 Office outpatient visit 25 minutes Claudine Durán MD Work Phone: [facility] [place] Comment on above: Essential hypertensi on (Primary Dx); Chronic anticoagulation; Aortic stenosis with bicuspid valve; 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 rheumatoid factor (HCC); COPD without exacerbation (HCC); Bronchiectasis without complication (HCC); Acquired hammertoe of left foot; Early dry stage nonexudative age-related macular degeneration of both eyes Start: 02-24-2022 ambulatory [facility] Provider Sr. Strategic Sourcing Manager Management Comment on above: [employer] Home Monitor ing Program Reminder Start: 02-24-2022 E-mail encounter fro m caregiver [facility] Provider [facility] Start: 02-17-2022 ambulatory [facility] Provider Sr. Strategic Sourcing Manager Management Comment on above: [employer] Home Monitor ing Program Reminder Start: 02-17-2022 E-mail encounter fro m caregiver [facility] Provider [facility] Start: 02-02-2022 End: 02-02-2022 Anticoagulant drug monitoring [facility] Work Phone: Coumadin [facility] [place] Comment on above: Personal history of DVT (deep vein thrombosis) (Primary Dx) Start: 01-17-2022 ambulatory [facility] Provider Sr. Strategic Sourcing Manager Management Comment on above: [employer] Home Monitor ing Program Reminder Refill Request Start: 01-17-2022 E-mail encounter fro m caregiver [facility] Start: 01-10-2022 Refill Jimbo Swanson APRN.ROCKBOARD LATHER Work Phone: Internal Medicine [place] Comment on above: Refill Request Start: 01-05-2022 End: 01-05-2022 Anticoagulant drug monitoring [facility] Work Phone: Coumadin [facility] [place] Comment on above: Personal history of DVT (deep vein thrombosis) (Primary Dx) Start: 12-31-2021 End: 12-31-2021 Subsequent hospital visit by physician Rob[facility] [place] Work Phone: Radiology Comment on above: Hip pain, acute, lef t [M25.552] Start: 12-22-2021 End: 12-22-2021 Anticoagulant drug monitoring [facility] Work Phone: [facility] [place] Comment on above: Personal history of DVT (deep vein thrombosis) (Primary Dx) Start: 11-29-2021 ambulatory Jimbo Swanson DIAMOND DRILLER HELPER.ROCKBOARD LATHER Work Phone: Internal [facility] [place] Comment on [...] End: 11-10-2021 Patient encounter procedure Jimbo Swanson CONNIERcROCKBOARD LATHER Work Phone: Internal Medicine [place] Comment on [...] encounter Claudine valderrama MD Work Phone: [facility] [place] Comment on above: Orders (protime) Start: 10-27-2021 End: 10-27-2021 [facility] Work Phone: [facility] [place] Comment [...] 10-18-2021 Subsequent hospital visit by physician Robbie [facility] [place] Work Phone: Radiology Comment on above: Ulcer of toe of left foot, limited to breakdown of skin (HCC) [L97.521] Start: 10-12-2021 End: 10-12-2021 Subsequent hospital visit by physician [facility] Work Phone: Radiology Comment on above: Abnormal mammogram [ R92.8] Start: 09-29-2021 End: 09-29-2021 Anticoagulant drug monitoring [facility] Work Phone: [facility] [place] Comment on above: Personal history of DVT (deep vein thrombosis) (Primary Dx) Start: 09-20-2021 End: 09-20-2021 Patient encounter procedure Jimbobetina Swanson APRN.ROCKBOARD LATHER Work Phone: Internal Medicine [place] Comment on above: Toe infection (Prima ry Dx); Sinobronchitis Start: 09-05-2021 Documentation procedure Mammog adrian Coordinator [facility] Start: 09-05-2021 Letter encounter Mammography Coordinator [facility] Department Start: 09-05-2021 End: 09-05-2021 Subsequent hospital visit by physician Screen Mammo [facility] Mammogram Comment on above: Encounter for screen ing mammogram for breast cancer [Z12.31] Start: 08-23-2021 End: 08-23-2021 Anticoagulant drug monitoring [facility] Work Phone: [facility] [place] Comment on above: Personal [...] Start: 07-25-2021 End: 07-25-2021 Anticoagulant drug monitoring [facility] Work Phone: [facility] [place] Comment on above: Personal history of DVT (deep vein thrombosis) (Primary Dx) Start: 07-11-2021 End: 07-11-2021 Office outpatient visit 25 minutes Claudine Durán MD Work Phone: [facility] [place] Comment on above: Gastroesophageal ref lux disease without esophagitis (Primary Dx); Other viral warts; Elevated LDL cholesterol level; Essential hypertension; Need for COVID-19 vaccine; COPD without exacerbation (HCC); Bronchiectasis without complication (HCC) Start: 07-07-2021 End: 07-07-2021 Patient encounter procedure [facility], Specimen Start: 06-29-2021 ambulatory Gold Coy RN Sr. Strategic Sourcing Manager Management Comment on above: Community Monitoring Outreach (COPD CDM Outreach) Start: 06-09-2021 End: 06-09-2021 Anticoagulant drug monitoring [facility] Work Phone: [facility] [place] Comment on above: Embolism and thrombo sis [...] Start: 05-26-2021 End: 05-26-2021 [facility]tico[facility] Work Phone: [facility] [place] Comment on above: Embolism and thrombo sis (HCC) Start: 05-20-2021 ambulatory Nara (Pss) [facility] [place] Comment on above: Population Health Na vigation Outreach ([employer] Care Gaps) Start: 03-14-2021 End: 03-14-2021 Patient encounter procedure Claudine Durán MD Work Phone: Internal Medicine [place] Comment on above: Essential hypertensi on (Primary Dx); History of COVID-19; Cough; Bronchiectasis without complication (HCC); Gastroesophageal reflux disease without esophagitis; Aortic stenosis with bicuspid valve; 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 rheumatoid factor (HCC) Start: 02-28-2018 Patient encounter procedure Will Carsonileana [facility] Start: 10-02-2014 End: 10-03-2014 Ambulatory Mykel BcRc Norrisjesse Facility:[facility] Procedures Date Procedure Procedure Detail Performing Clinician Start: 06-20-2024 Evaluation of diagnostic study results Dr. Claudine Durán MD Work Phone: Start: 04-30-2024 Radiologic exam chest 2 views Leandra mckeon DIAMOND DRILLER HELPER.ROCKBOARD LATHER Work Phone: Start: 03-25-2024 Rp loclzj mary spect w/ct 1 area 1 day imaging Monica Newman-Marshall DIAMOND DRILLER HELPER.REGIONAL CONTROLLER Work Phone: Start: 03-25-2024 Spmtry w/vc expiratory milton w/wo mxml vol vntj Monica Newman-Ponchohochristofer DIAMOND DRILLER HELPER.REGIONAL CONTROLLER Work Phone: Start: 03-21-2024 Radiologic exam chest 2 views Monica Newman-Marshall DIAMOND DRILLER HELPER.REGIONAL CONTROLLER Work Phone: Start: 03-21-2024 Ct angiography chest w/contrast/noncontrast Monica Newman-Marshall DIAMOND DRILLER HELPER.REGIONAL CONTROLLER Work Phone: Start: 03-21-2024 Ct angio abd&plvis cntrst mtrl w/wo cntrst img Monicadenise Newman-Ponchohochristofer DIAMOND DRILLER HELPER.REGIONAL CONTROLLER Work Phone: Start: 03-21-2024 Creatinine [Mass/volume] in [...] A/B & RSV NAAT, ROUTINE Adri Zaragoza DIAMOND DRILLER HELPER.REGIONAL CONTROLLER Work Phone: Start: 02-07-2023 Radiologic exam chest 2 views Adri de la rosa DIAMOND DRILLER HELPER.REGIONAL CONTROLLER Work Phone: Start: 01-04-2023 PFIZER-BIONTECH COVID-19 VACCINE (2022- SEASON) AGE 12+ YR Jimbo Swanson DIAMOND DRILLER HELPER.ROCKBOARD LATHER Work Phone: Start: 01-04-2023 Prothrombin time Jimbo Swanson DIAMOND DRILLER HELPER.ROCKBOARD LATHER Work Phone: Start: 11-17-2022 Screening digital breast tomosynthesis Jimbo Swanson DIAMOND DRILLER HELPER.ROCKBOARD LATHER Work Phone: Start: 09-08-2023 INFLUENZA VACCINE, PRSV FREE, AGE 65+ YR, HIGH DOSE, QUADRIVALENT (FLUZONE HIGH-DOSE) Jimbo Swanson DIAMOND DRILLER HELPER.ROCKBOARD LATHER Work Phone: Start: 08-29-2022 Ecg routine ecg w/least 12 lds i&r only [facility] Provider Start: 07-20-2022 Ct thorax w/o contrast material Meche Collins MD Work Phone: Start: 12-31-2021 Radex hip unilateral with pelvis 2-3 views Ernie Belcher DIAMOND DRILLER HELPER.REGIONAL CONTROLLER Work Phone: Start: 11-10-2021 INFLUENZA SEASONAL QUADRIVALENT HIGH DOSE AGE 65+ Jimbo Sans DIAMOND DRILLER HELPER.ROCKBOARD LATHER Work Phone: Start: 11-10-2021 PFIZER-BIONTECH COVID-19 BIVALENT BOOSTER VACCINE, AGE 12+ YR Jimbo Sans DIAMOND DRILLER HELPER.ROCKBOARD LATHER Work Phone: Start: 11-10-2021 Adult depression screening assessment Jimbo Swanson DIAMOND DRILLER HELPER.ROCKBOARD LATHER Work Phone: Start: 10-18-2021 Radex foot complete minimum 3 views Shilo hew Testrake Work Phone: Start: 10-12-2021 Diagnostic mammography computer-aided detcj uni [facility] DIAMOND DRILLER HELPER.REGIONAL CONTROLLER Work Phone: Start: 09-05-2021 End: 09-05-2021 Screening mammography bi 2-view breast inc cad [facility] DIAMOND DRILLER HELPER.REGIONAL CONTROLLER Work Phone: Start: 07-11-2021 PFIZER-BIONTECH COVID-19 VACCINE, AGE 12+ YR (ARIAS TOP) Claudine Durán MD Work Phone: Start: 07-07-2021 Lipid 1996 panel - Serum or Plasma Ashly Shay RN Start: 07-13-2020 Adult depression screening assessment Nara Dopa Start: 06-01-2020 Mammography Nara Dopart Start: 03-24-2019 Colonoscopy Nara Dopart Plan of Treatment Date Care Activity Detail Author Start: 11-05-2029 Urine microalbumin profile [facility] Start: 03-24-2029 Colonoscopy COLONOSCOPY [facility] Start: 03-24-2029 COLORECTAL CANCER SCREENING COLORECTAL CANCER SCREENING [facility] Start: 03-24-2029 Screening for malignant neoplasm of colon [facility] Start: 07-23-2027 Diabetes Screening Diabetes Screening [facility] Start: 05-04-2027 Diabetes Screening Diabetes Screening [facility] Start: 05-01-2027 Diabetes Screening Diabetes Screening [facility] Start: 03-24-2027 Diabetes Screening Diabetes Screening [facility] Start: 03-21-2027 Diabetes Screening Diabetes Screening [facility] Start: 10-10-2026 Diabetes Screening Diabetes Screening [facility] Start: 08-29-2026 Diabetes Screening Diabetes Screening [facility] Start: 08-21-2026 Diabetes Screening Diabetes Screening [facility] Start: 07-07-2026 Lipid 1996 panel - Serum or Plasma Lipid Screening [facility] Start: 07-07-2026 Lipid panel Lipid Screening [facility] Start: 07-07-2026 LIPID SCREEN LIPID SCREEN [facility] Start: 06-04-2026 Diabetes Screening Diabetes Screening [facility] Start: 03-25-2026 Diabetes Screening Diabetes Screening [facility] Start: 03-22-2026 Diabetes Screening Diabetes Screening [facility] Start: 05-26-2025 End: 05-26-2025 Patient encounter procedure 05/26/2025 9:00 AM EDT Office Visit [facility] [place] [address] [place], [place] [id number] Jimbo Swanson, DIAMOND DRILLER HELPER.ROCKBOARD LATHER [address] [place] [address] Medicare Wellness [facility] [place] Comment on above: Medicare Wellness Start: 05-20-2025 BP Controlled (<130/80) BP Controlled (<130/80) [facility] Start: 05-20-2025 zzBP Controlled (<130/80) (Retired) zzBP Controlled (<130/80) (Retired) [facility] Start: 04-30-2025 BP Controlled (<130/80) BP Controlled (<130/80) [facility] Start: 02-28-2025 Annual PCP Team Chronic Disease Visit Annual PCP Team Chronic Disease Visit [facility] Start: 02-28-2025 Anxiety Screening Anxiety Screening [facility] Start: 02-28-2025 Covid-19 Vaccine (9 - 2024-25 season) Covid-19 Vaccine () [facility] Comment on above: Postponed from 01/17/2024 (Declined at t his time) Postponed from 05/22 (Declined at this time) Start: 02-28-2025 Covid-19 Vaccine (9 - Pfizer risk ) Covid-19 Vaccine (9 - Pfizer risk ) [facility] Comment on above: Postponed from 05/22/2024 (Declined at t his time) Start: 02-28-2025 Depression Screening Depression Screening [facility] Start: 01-01-2025 BP Controlled (<130/80) BP Controlled (<130/80) [facility] Start: 10-27-2024 End: 10-27-2024 Patient encounter procedure 10/27/2024 10:00 AM EDT Office Visit [facility] [place] [address] [place] [address] Geno Hart MD [address] [place] [address] Return in about 6 months (around 10/22/2024). [facility] Comment on above: Return in about 6 months (around ). Start: 10-20-2024 Influenza vaccination Influenza Vaccine (#1) [facility] Start: 10-17-2024 BP Controlled (<130/80) BP Controlled (<130/80) [facility] Start: 10-10-2024 BP Controlled (<130/80) BP Controlled (<130/80) [facility] Start: 09-03-2024 End: 09-03-2024 Anticoagulant drug monitoring 09/03/2024 10:00 AM EDT Antico[facility] [address] [place], [place] [address] Wstr, Anticoag [facility] [address] [place], [place] [phone] inr [facility] Comment on above: inr Start: 08-27-2024 BP Controlled (<130/80) BP Controlled (<130/80) [facility] Start: 08-26-2024 BP Controlled (<130/80) BP Controlled (<130/80) [facility] Start: 08-21-2024 Annual PCP Team Chronic Disease Visit Annual PCP Team Chronic Disease Visit [facility] Start: 08-21-2024 BP Controlled (<130/80) BP Controlled (<130/80) [facility] Start: 08-21-2024 End: 08-21-2024 Anticoagulant drug monitoring 08/21/2024 10:30 AM EDT Antico[facility] Visit [facility] [address] [facility] [place] [address] Wstr, Anticoag [facility] [address] [facility] [place] [address] inr [facility] Comment on above: inr Start: 08-07-2024 Annual PCP Team Chronic Disease Visit Annual PCP Team Chronic Disease Visit [facility] Start: 08-06-2024 End: 08-06-2024 Anticoagulant drug monitoring 08/06/2024 10:30 AM EDT Anticoagulation Visit [facility] [address] [facility] [place] [address] Wstr, Anticoag [facility] [address] [facility] [place] [address] inr [facility] Comment on above: inr Start: 07-22-2024 End: 07-22-2024 Patient encounter procedure Cardiology Comment on above: S/P TAVR Start: 07-22-2024 End: 07-22-2024 ambulatory [facility] J1-4 Dra mikal Rosales Comment on above: LAB S/P TAVR Start: 07-21-2024 End: 07-21-2024 Anticoagulant drug monitoring 07/21/2024 10:30 AM EDT Antico[facility] [address] [facility] [place] [address] Wstr, Anticoag [facility] [address] [facility] [place], [place] [address] inr [facility] Comment on above: inr Start: 07-09-2024 BP Controlled (<130/80) BP Controlled (<130/80) [facility] Start: 07-07-2024 End: 07-07-2024 Anticoagulant drug monitoring 07/07/2024 10:30 AM EDT Anticoagulation Visit Coumadin [facility] [address] [place], [place] [address] Wstr, [facility] [address] [place] [address] inr [facility] Comment on above: inr Start: 06-16-2024 End: 09-15-2024 HISTOPLASMA AG URINE HISTOPLASMA AG URINE Lab Routine Disseminated histoplasmosis Expected: 06/16/2024, Expires: 09/15/2024 [facility] Work Phone: Comment on above: Expected: 06/16/2024, Expires: Start: 06-04-2024 Annual PCP Team Chronic Disease Visit Annual PCP Team Chronic Disease Visit [facility] Start: 06-04-2024 BP Controlled (<130/80) BP Controlled (<130/80) [facility] Start: 06-03-2024 End: 06-03-2024 Anticoagulant drug monitoring 06/03/2024 2:30 PM EDT Anticoagulation Visit Coumadin [facility] [address] [place] [address] Wstr, [facility] [address] [place] [address] inr [facility] Comment on above: inr Start: 05-20-2024 End: 05-20-2024 Patient encounter procedure 05/20/2024 1:00 PM EDT Office Visit [facility] [address] [place], [place] [phone] Jimbo Swanson APRN.[employer] LATHER [address] [place], [place] [id number] Medicare Wellness [facility] Comment on above: Medicare Wellness Start: 05-20-2024 End: 05-20-2024 Anticoagulant drug monitoring 05/20/2024 12:30 PM EDT Anticoagulation Visit [facility] [address] [facility] [address] Wstr, Anticoag [facility] [address] [place] [address] inr [facility] Comment on above: inr Start: 05-05-2024 End: 05-05-2024 Patient encounter procedure Cardiology Comment on above: S/P TAVR Start: 05-02-2024 End: 08-01-2024 CBC W Auto Differential panel - Blood COMPLETE BLOOD COUNT AND DIFFERENTIAL Lab STAT Nonrheumatic aortic valve stenosis Aortic valve disorder Expected: 05/02/2024 (Approximate), Expires: 08/01/2024 [facility] Comment on above: Expected: 05/02/2024 (Approximate), Expi res: 08/01/2024 Start: 05-02-2024 End: 08-01-2024 Comprehensive metabolic 2000 panel - Serum or Plasma COMPREHENSIVE METABOLIC PANEL Lab STAT Nonrheumatic aortic valve stenosis Aortic valve disorder Expected: 05/02/2024 (Approximate), Expires: 08/01/2024 [facility] Comment on above: Expected: 05/02/2024 (Approximate), Expi res: 08/01/2024 Start: 05-02-2024 End: 08-01-2024 CONFIRM BLOOD TYPE CONFIRM BLOOD TYPE Blood Bank STAT Nonrheumatic aortic valve stenosis Aortic valve disorder Expected: 05/02/2024 (Approximate), Expires: 08/01/2024 [facility] Comment on above: Expected: 05/02/2024 (Approximate), Expi res: 08/01/2024 Start: 05-02-2024 End: 08-01-2024 Natriuretic peptide.B prohormone N-Terminal [Mass/volume] in Serum or Plasma NT PRO BNP Lab STAT Nonrheumatic aortic valve stenosis Aortic valve disorder Expected: 05/02/2024 (Approximate), Expires: 08/01/2024 [facility] Comment on above: Expected: 05/02/2024 (Approximate), Expi res: 08/01/2024 Start: 05-02-2024 End: 08-01-2024 PT panel - Platelet poor plasma by Coagulation assay PROTHROMBIN TIME Lab STAT Nonrheumatic aortic valve stenosis Aortic valve disorder Expected: 05/02/2024 (Approximate), Expires: 08/01/2024 [facility] Comment on above: Expected: 05/02/2024 (Approximate), Expi res: 08/01/2024 Start: 05-02-2024 End: 08-01-2024 TYPE AND SCREEN,30 DAY TYPE AND SCREEN,30 DAY Blood Bank STAT Nonrheumatic aortic valve stenosis Aortic valve disorder Expected: 05/02/2024 (Approximate), Expires: 08/01/2024 [facility] Comment on above: Expected: 05/02/2024 (Approximate), Expi res: 08/01/2024 Start: 05-02-2024 End: 05-02-2024 Replace aortic valve perq femoral artry approach TRANSCATHETER AORTIC VALVE REPLACEMENT (TAVR/ROLA) W/ PROSTHETIC VALVE PERCUTANEOUS FEMORAL ARTERY APPROACH Aortic valve stenosis, etiology of cardiac valve disease unspecified 05/02/2024 10:32 AM EDT [facility] Start: 05-02-2024 End: 05-02-2024 Patient encounter procedure 05/02/2024 8:45 AM EDT Office Visit Cardiology [address] [place] [id number] COMMERCIAL TF- TAVR ( CARLYN) Cardiology Comment on above: COMMERCIAL TF- TAVR ( CARLYN) Start: 05-02-2024 End: 05-02-2024 ambulatory 05/02/2024 8:30 AM EDT Procedure Cardiology [address] [phone] COMMERCIAL TF- TAVR ( CARLYN) Cardiology Comment on above: COMMERCIAL TF- TAVR ( CARLYN) Start: 05-02-2024 End: 05-02-2024 Anesthesia consultation 05/02/2024 8:00 AM EDT Anesthesia Event Admitting [address] [place] [address] Nara Mcnair APRN.[address], [address] [place] [id number] Admitting Start: 05-02-2024 End: 05-02-2024 Admission to [...] 05/01/2024 11:30 AM EDT Anticoagulation Visit Coumadin [address] [phone] Wstr, Anticoag [facility] [address] [place], [place] [address] inr [facility] Comment on above: inr Start: 04-30-2024 End: 04-30-2024 Patient encounter procedure 04/30/2024 2:20 PM EDT Office Visit Cardiothoracic [address] [place] [address] COMMERCIAL TF- TAVR ( CARLYN) Cardiothoracic Comment on above: COMMERCIAL TF- TAVR ( CARLYN) Start: 04-30-2024 End: 04-30-2024 Patient encounter procedure Cardiology Comment on above: COMMERCIAL TF- TAVR ( CARLYN) Start: 04-30-2024 End: 04-30-2024 ambulatory 04/30/2024 11:00 AM EDT Results Only [facility] [address] [place] [address] COMMERCIAL TF- TAVR ( CARLYN) [facility] Comment on above: COMMERCIAL TF- TAVR ( CARLYN) Start: 04-21-2024 End: 04-21-2024 Patient encounter procedure 04/21/2024 11:00 AM EST Office Visit [facility] [place] [facility] [address] [place] [address] Geno Hart MD [address] [place] [address] Return in about 4 months (around 04/18/2024). [facility] [place] Comment on above: Return in about 4 months (around 04/18/19). Start: 04-03-2024 End: 04-03-2024 Anticoagulant drug monitoring 04/03/2024 11:30 AM EST Anticoagulation Visit [facility] [address] [place], [place] [address] Wstr, Anticoag [facility] [address] [place], [place] [phone] inr [facility] Comment on above: inr Start: 03-25-2024 End: 03-25-2024 Patient encounter procedure Cardiology Comment on above: New TAVR Workup NM SPECT/CT CARDIAC AMYLOID Start: 03-25-2024 End: 03-25-2024 ambulatory Pulmonary Medicine Comment on above: New TAVR Workup Start: 03-24-2024 End: 03-24-2024 Admission to same day surgery center 03/24/2024 5:45 PM EST - 03/24/2024 6:53 PM EST Surgery HOSP Energy Assistant [address] [place] [address] Michael Beavers MD [address] [place], [place] [phone] CORONARY ANGIO W CATH PLACE W IMAGE INJECT & INTERP W LT HEART CATH W INJECT LT VENTRGRAPHY HOSP Energy Assistant Comment on above: CORONARY ANGIO W CATH PLACE W IMAGE INJE CT & INTERP W LT HEART CATH W INJECT LT VENTRGRAPHY Start: 03-24-2024 End: 03-24-2024 Cath plmt l hrt & arts w/njx & angio img s&i CORONARY ANGIO W CATH PLACE W IMAGE INJECT & INTERP W LT HEART CATH W INJECT LT VENTRGRAPHY Nonrheumatic aortic valve stenosis 03/24/2024 5:45 PM EST MOTHERS HELPER Start: 03-24-2024 Subsequent hospital visit by physician 03/24/2024 5:45 PM EST Hospital Encounter HOSP Energy Assistant [address] [place] [address] Michael Beavers MD [address] [place], [place] [phone] Nonrheumatic aortic valve stenosis [I35.0] HOSP Energy Assistant Comment on above: Nonrheumatic aortic valve stenosis [I35. 0] Start: 03-24-2024 End: 03-24-2024 Patient encounter procedure 03/24/2024 10:00 AM EST Office Visit Admitting [address] [place] [address] ADMIT Admitting Comment on above: ADMIT Start: 03-24-2024 End: 03-24-2024 ambulatory Cardiology Comment on above: [facility] Start: 03-21-2024 End: 03-21-2024 ambulatory [facility] J1-4 Dra mikal Rosales Comment on above: New TAVR Workup Start: 03-21-2024 End: 03-21-2024 Patient encounter procedure Radiology Comment on above: New TAVR Workup Start: 03-21-2024 End: 03-21-2024 Patient encounter procedure 03/21/2024 9:30 AM EST Office Visit Cardiology [address] [place] [address] [place] [address] [address] [place], [place] [phone] Clinician, Interventional [address] [place], [place] [phone] New TAVR Workup Cardiology Comment on above: New TAVR Workup Start: 03-03-2024 BP Controlled (<130/80) BP Controlled (<130/80) [facility] Start: 02-29-2024 End: 02-29-2024 Patient encounter procedure 02/29/2024 3:40 PM EST Office Visit [facility] [place] [address] [place], [place] [phone] Claudine Durán MD [address] [place], [place] [phone] 4 Month follow up [facility] Comment on above: 4 Month follow up Start: 02-29-2024 End: 02-29-2024 Anticoagulant drug monitoring 02/29/2024 3:30 PM EST Anticoagulation Visit [facility] [address] [place] [address] Wstr, [facility] [address] [place], [place] [address] inr [facility] Comment on above: inr Start: 02-25-2024 End: 02-25-2024 Patient encounter procedure 02/25/2024 12:15 PM EST Office Visit Cardiology [address] [place] [address] Ines Drew MD [address] [place], [place] [phone] Aortic valve stenosis, etiology of cardiac valve disease unspecified [I35.0] Cardiology Comment on above: Aortic valve stenosis, etiology of cardi ac valve disease unspecified [I35.0] Start: 02-20-2024 Advance Directive Discussion Advance Directive Discussion [facility] Start: 01-31-2024 End: 01-31-2024 Anticoagulant drug monitoring 01/31/2024 10:30 AM EST Anticoagulation Visit [facility] [address] [place] [address] Wstr, [facility] [address] [place], [place] [address] inr Coumadin [facility] Comment on above: inr Start: 01-25-2024 End: 01-25-2024 Patient encounter procedure 01/25/2024 11:20 AM EST Office Visit Cardiology [address] [address] William Messina DO [address] [place] [address] 3 month follow up Cardiology Comment on above: 3 month follow up Start: 01-18-2024 End: 10-17-2024 ECHO LIMITED ECHO LIMITED Cardiology Routine Pericardial effusion Expected: 01/18/2024 (Approximate), Expires: 10/17/2024 [facility] Work Phone: Comment on above: Expected: 01/18/2024 (Approximate), Expi res: 10/17/2024 Start: 01-18-2024 End: 01-18-2024 Patient encounter procedure 01/18/2024 10:30 AM EST Office Visit Cardiology [address] [address] Pericardial effusion [I31.39] Cardiology Comment on above: Pericardial effusion [I31.39] Start: 01-17-2024 Covid-19 Vaccine () Covid-19 Vaccine () [facility] Start: 01-10-2024 End: 01-10-2024 Anticoagulant drug monitoring 01/10/2024 12:00 PM EST Anticoagulation Visit Coumadin [facility] [address] [place], [place] [phone] Wstr, Anticoag [facility] [address] [place] [address] inr Coumadin [facility] Comment on above: inr Start: 01-08-2024 End: 04-08-2024 CBC W Auto Differential panel - Blood COMPLETE BLOOD COUNT AND DIFFERENTIAL Lab Routine Nonrheumatic aortic valve stenosis Aortic valve disorder Expected: 01/08/2024, Expires: 04/08/2024 [facility] Comment on above: Expected: 01/08/2024, Expires: Start: 01-08-2024 End: 04-08-2024 Comprehensive metabolic 2000 panel - Serum or Plasma COMPREHENSIVE METABOLIC PANEL Lab Routine Nonrheumatic aortic valve stenosis Aortic valve disorder Expected: 01/08/2024, Expires: 04/08/2024 [facility] Comment on above: Expected: 01/08/2024, Expires: Start: 01-08-2024 End: 04-08-2024 HIGH SENSITIVITY TROPONIN T HIGH SENSITIVITY TROPONIN T Lab Routine Nonrheumatic aortic valve stenosis Expected: 01/08/2024, Expires: 04/08/2024 [facility] Comment on above: Expected: 01/08/2024, Expires: 5 Start: 01-08-2024 End: 04-08-2024 Lipoprotein a [Mass/volume] in Serum or Plasma LIPOPROTEIN (A) Lab Routine Nonrheumatic aortic valve stenosis Expected: 01/08/2024, Expires: 04/08/2024 [facility] Comment on above: Expected: 01/08/2024, Expires: 5 Start: 01-08-2024 End: 04-08-2024 Natriuretic peptide.B prohormone N-Terminal [Mass/volume] in Serum or Plasma NT PRO BNP Lab Routine Nonrheumatic aortic valve stenosis Expected: 01/08/2024, Expires: 04/08/2024 [facility] Comment on above: Expected: 01/08/2024, Expires: Start: 01-08-2024 End: 04-08-2024 PT panel - Platelet poor plasma by Coagulation assay PROTHROMBIN TIME Lab STAT Nonrheumatic aortic valve stenosis Expected: 01/08/2024, Expires: 04/08/2024 [facility] Comment on above: Expected: 01/08/2024, Expires: Start: 01-08-2024 End: 01-08-2024 Patient encounter procedure 01/08/2024 10:30 AM EST Office Visit [facility] [place] [facility] [address] [place] [phone] Geno Hart MD [address] [place] [address] follow up [facility] [place] Comment on above: follow up Start: 01-05-2024 BP Controlled (<130/80) BP Controlled (<130/80) [facility] in Start: 01-02-2024 End: 01-02-2024 Patient encounter procedure 01/02/2024 9:45 AM EST Office Visit Cardiology [address] [place] [address] Ines Drew MD [address] [place] [address] DX: Aortic valve stenosis, etiology of cardiac valve disease unspecified; Mitral valve stenosis, unspecified etiology Cardiology Comment on above: DX: Aortic valve stenosis, etiology of c ardiac valve disease unspecified; Mitral valve stenosis, unspecified etiology Start: 01-02-2024 End: 01-02-2024 ambulatory 01/02/2024 9:00 AM EST Results Only Cardiology [address] [place] [address] DX: Aortic valve stenosis, etiology of cardiac valve disease unspecified; Mitral valve stenosis, unspecified etiology Cardiology Comment on above: DX: Aortic valve stenosis, etiology of c ardiac valve disease unspecified; Mitral valve stenosis, unspecified etiology Start: 12-27-2023 End: 12-27-2023 Anticoagulant drug monitoring 12/27/2023 10:30 AM EST Anticoagulation [facility] [address] [place] [address] [facility]str, [facility] [address] [place] [address] inr [facility] [place] Comment on above: inr Start: 12-18-2023 End: 12-18-2023 Patient encounter procedure 12/18/2023 11:00 AM EDT Office Visit [facility] [place] [facility] [address] [place] [address] Geno Hart MD [address] [place] [phone] follow up [facility] [place] [facility] Comment on above: follow up Start: 12-13-2023 End: 12-13-2023 Anticoagulant drug monitoring 12/13/2023 10:45 AM EDT Anticoagulation Visit [facility] [place] [address] [place] [address] Wstr, Anticoag [facility] [address] [place], [place] [address] inr [facility] [place] Comment on above: inr Start: 11-29-2023 End: 11-29-2023 Anticoagulant drug monitoring 11/29/2023 11:00 AM EDT Anticoagulation Visit [facility] [place] [address] [facility] [place] [address] Wstr, An[facility]ag [facility] [address] [facility] [place] [address] inr [facility] [place] Comment on above: inr Start: 11-15-2023 End: 11-15-2023 Anticoagulant drug monitoring 11/15/2023 12:00 PM EDT Anticoagulation Visit [facility] [place] [address] [facility] [place] [address] Wstr, Anticoag [facility] [address] [facility] [place] [address] inr [facility] [place] Comment on above: inr Start: 11-08-2023 End: 11-08-2023 Anticoagulant drug monitoring 11/08/2023 1:00 PM EDT Anticoagulation Visit [facility] [place] [address] [facility] [place] [address] Wstr, Anticoag [facility] [address] [facility] [place] [address] inr [facility] [place] Comment on above: inr Start: 10-28-2023 BP CONTROLLED (<130/80) BP CONTROLLED (<130/80) [facility] Start: 10-25-2023 End: 10-25-2023 Anticoagulant drug monitoring 10/25/2023 12:00 PM EDT Anticoagulation Visit [facility] [place] [address] [facility] [place] [address] Wstr, An[facility]ag [facility] [address] [facility] [place] [address] inr [facility] [place] Comment on above: inr Start: 10-21-2023 Covid-19 Vaccine ( season) Covid-19 Vaccine ( season) [facility] Start: 10-21-2023 Covid-19 Vaccine ( season) Covid-19 Vaccine () [facility] Start: 10-21-2023 Influenza vaccination Influenza Vaccine (#1) [facility] Start: 10-19-2023 End: 10-19-2023 Anticoagulant drug monitoring 10/19/2023 11:00 AM EDT Anticoagulation Visit Coumadin [facility] [address] [place] [address] Wstr, Anticoag [facility] [address] [place] [address] inr [facility] [place] Comment on above: inr Start: 10-18-2023 End: 10-18-2023 Patient encounter procedure 10/18/2023 10:00 AM EDT Office Visit Cardiology [address] [address] Bibi Alegria, DIAMOND DRILLER HELPER.REGIONAL CONTROLLER [address] [place] [address] 1 month follow up Cardiology Comment on above: 1 month follow up Start: 10-11-2023 End: 10-11-2023 Patient encounter procedure 10/11/2023 1:00 PM EDT Office Visit [facility] [address] [place] [address] Jimbo Swanson, CONNIE.ROCKBOARD LATHER [address] [place] [address] 4Month follow up [facility] [place] Comment on above: 4Month follow up Start: 09-28-2023 End: 09-28-2023 Patient encounter procedure 09/28/2023 10:30 AM EDT Office Visit Cardiology [address] [address] Nonrheumatic aortic valve stenosis [I35.0] Cardiology Comment on above: Nonrheumatic aortic valve stenosis [I35. 0] Start: 09-27-2023 End: 09-27-2023 Anticoagulant drug monitoring 09/27/2023 10:45 AM EDT Anticoagulation Visit [facility] [place] [address] [facility] [place] [address] Wstr, Anticoag [facility] [address] [facility] [place] [address] inr [facility] [place] Comment on above: inr Start: 09-20-2023 End: 09-20-2023 Anticoagulant drug monitoring 09/20/2023 10:00 AM EDT Anticoagulation Visit [facility] [address] [facility] [place] [address] Wstr, Anticoag [facility] [address] [facility] [place] [address] inr [facility] [place] Comment on above: inr Start: 09-10-2023 End: 12-10-2023 Basic metabolic 2000 panel - Serum or Plasma BASIC METABOLIC PANEL Lab Routine Nonrheumatic aortic valve stenosis Mitral valve stenosis, non-rheumatic Essential hypertension Pericardial effusion (noninflammatory) Leg edema Expected: 09/10/2023, Expires: 12/10/2023 [facility] Comment on above: Expected: 09/10/2023, Expires: Start: 09-10-2023 End: 12-10-2023 Natriuretic peptide.B prohormone N-Terminal [Mass/volume] in Serum or Plasma NT PRO BNP Lab Routine Nonrheumatic aortic valve stenosis Mitral valve stenosis, non-rheumatic Essential hypertension Pericardial effusion (noninflammatory) Leg edema Expected: 09/10/2023, Expires: 12/10/2023 [facility] Comment on above: Expected: 09/10/2023, Expires: Start: 08-30-2023 End: 08-30-2023 Anticoagulant drug monitoring 08/30/2023 12:45 PM EDT Anticoagulation Visit [facility] [place] [address] [facility] [place] [address] Wstr, Anticoag [facility] [address] [facility] [place], [place] [address] inr [facility] [place] Comment on above: inr Start: 08-28-2023 End: 11-27-2023 Histoplasma capsulatum Ab [Presence] in Serum by Immune diffusion (ID) HISTOPLASMA AB ID Lab Routine Disseminated histoplasmosis Encounter for long-term (current) use of antibiotics Expected: 08/28/2023, Expires: 11/27/2023 [facility] Work Phone: Comment on above: Expected: 08/28/2023, Expires: Start: 08-28-2023 End: 08-28-2023 Patient encounter procedure 08/28/2023 9:00 AM EDT Office Visit [facility] [place] [facility] [address] [place] [address] Geno Hart MD [address] [place] [address] follow up [facility] [place] [facility] Comment on above: follow up Start: 08-27-2023 End: 08-27-2023 Patient encounter procedure 08/27/2023 8:20 AM EDT Office Visit Cardiology [address] [place] [address] William Messina DO [address] [place] [address] Annual Cardiology Comment on above: Annual Start: 08-22-2023 End: 08-22-2023 Anticoagulant drug monitoring 08/22/2023 9:30 AM EDT Anticoagulation Visit [facility] [place] [address] [place], [place] [address] Wstr, Anticoag [facility] [address] [place], [place] [phone] inr [facility] [place] Comment on above: inr Start: 08-15-2023 End: 11-14-2023 Basic metabolic 2000 panel - Serum or Plasma BASIC METABOLIC PANEL Lab Routine Encounter for therapeutic drug monitoring Expected: 08/15/2023, Expires: 11/14/2023 [facility] Work Phone: Comment on above: Expected: 08/15/2023, Expires: Start: 08-15-2023 End: 08-15-2023 Patient encounter procedure Radiology Comment on above: Right knee Right knee pain/swel ling Start: 08-13-2023 End: 08-13-2023 Patient encounter procedure 08/13/2023 9:20 AM EDT Office Visit Cardiology [address] [place] [address] William Messina, [address] [place] [address] annual Cardiology Comment on above: annual Start: 08-09-2023 End: 08-09-2023 Anticoagulant drug monitoring 08/09/2023 9:30 AM EDT Antico[facility] [address] [place] [address] Wstr, Anticoag [facility] [address] [place] [address] inr [facility] [place] Comment on above: inr Start: 07-26-2023 End: 07-26-2023 Anticoagulant drug monitoring 07/26/2023 9:30 AM EDT Anticoagulation Visit [facility] [address] [place] [address] Wstr, Anticoag [facility] [address] [place] [address] inr [facility] [place] Comment on above: inr Start: 07-21-2023 BP CONTROLLED (<130/80) BP CONTROLLED (<130/80) [facility] Start: 07-12-2023 End: 07-12-2023 Anticoagulant drug monitoring 07/12/2023 9:00 AM EDT Anticoagulation Visit [facility] [address] [place] [address] Wstr, Anticoag [facility] [address] [place] [address] inr [facility] [place] Comment on above: inr Start: 07-11-2023 End: 07-11-2023 Patient encounter procedure 07/11/2023 12:00 PM EDT Office Visit [facility] [address] [place] [address] Acute pain of right knee [M25.561] [facility] Comment on above: Acute pain of right knee [M25.561] Start: 07-08-2023 DIABETES SCREEN DIABETES SCREEN [facility] Start: 07-08-2023 Diabetes Screening Diabetes Screening [facility] Start: 05-04-2023 Blood chemistry [facility] Start: 04-30-2023 Development of care plan [facility] Start: 04-30-2023 Patient discharge [facility] Start: 04-27-2023 Blood chemistry [facility] Start: 04-20-2023 Blood chemistry [facility] Start: 04-19-2023 Prothrombin time [facility] Start: 04-17-2023 Prothrombin time [facility] Start: 04-15-2023 Wound care [facility] Start: 04-10-2023 Consultation for treatment [facility] Start: 04-09-2023 Speech therapy management [facility] Start: 04-09-2023 Speech therapy assessment [facility] Start: 04-08-2023 [facility] Start: 04-08-2023 Inhalation therapy procedure [facility] Start: 04-06-2023 Development of care plan [facility] Start: 04-06-2023 Developing a treatment plan [facility] Start: 04-05-2023 Admission procedure [facility] Start: 04-05-2023 Measuring intake and output [facility] Start: 04-05-2023 Patient referral to dietitian [facility] Start: 04-05-2023 Referral to occupational therapist [facility] Start: 04-05-2023 Referral to service [facility] Start: 04-05-2023 Vital signs measurements [facility] Start: 04-05-2023 End: 04-05-2023 [facility] Start: 04-05-2023 Verification routine [facility] Start: 04-05-2023 Patient discharge [facility] Start: 04-05-2023 Prothrombin time [facility] Start: 04-04-2023 Application of intermittent pneumatic compression device [facility] Start: 04-04-2023 Application of intermittent pneumatic compression device [facility] Start: 04-04-2023 Consultation [facility] Start: 04-04-2023 Prothrombin time [facility] Start: 04-03-2023 Consultation [facility] Start: 04-03-2023 Prothrombin time [facility] Start: 04-02-2023 Prothrombin time [facility] Start: 04-01-2023 End: 07-01-2023 ALK PHOS ISOENZYM BL ALK PHOS ISOENZYM BL Lab Routine Elevated alkaline phosphatase level Expected: 04/01/2023, Expires: 07/01/2023 [facility] Work Phone: Comment on above: Expected: 04/01/2023, Expires: 4 Start: 04-01-2023 End: 07-01-2023 Comprehensive metabolic 2000 panel - Serum or Plasma COMP METABOLIC PANEL Lab Routine Hypoalbuminemia Elevated alkaline phosphatase level Elevated LFTs Expected: 04/01/2023, Expires: 07/01/2023 [facility] Work Phone: Comment on above: Expected: 04/01/2023, Expires: 4 Start: 04-01-2023 Application of elastic bandage [facility] Start: 04-01-2023 Administration of blood product [facility] Start: 04-01-2023 End: 07-01-2023 CBC W Auto Differential panel - Blood [facility] Comment on above: Expected: 04/01/2023, Expires: 4 Start: 04-01-2023 Magnesium [Mass/volume] in Serum or Plasma [facility] Start: 04-01-2023 Prothrombin time [facility] Start: 04-01-2023 [facility] Start: 04-01-2023 Inhalation therapy procedure [facility] Start: 03-31-2023 Following clinical pathway protocol [facility] Start: 03-31-2023 Ankle 2 Views Ankle 2 Views [facility] Start: 03-31-2023 Assessment of risk of venous thromboembolism [facility] Start: 03-31-2023 C reactive protein [Mass/volume] in Serum or Plasma [facility] Start: 03-31-2023 Consultation for treatment [facility] Start: 03-31-2023 Elevation of affected extremity [facility] Start: 03-31-2023 Erythrocyte sedimentation rate [facility] Start: 03-31-2023 Insertion of catheter into peripheral vein [facility] Start: 03-31-2023 Measuring intake and output [facility] Start: 03-31-2023 Providing care according to standard [facility] Start: 03-31-2023 Provision of activity privileges [facility] Start: 03-31-2023 Referral to occupational therapist [facility] Start: 03-31-2023 Referral to service [facility] Start: 03-31-2023 US Heart [facility] Start: 03-31-2023 US.doppler Lower extremity vein [facility] Start: 03-31-2023 XR Ankle 2 Views [facility] Start: 03-31-2023 [facility] Start: 03-31-2023 Verification routine [facility] Start: 03-31-2023 Admission procedure [facility] Start: 03-31-2023 Consultation [facility] Start: 03-31-2023 Patient referral to dietitian [facility] Start: 03-28-2023 [facility] Start: 03-28-2023 [facility] Start: 03-28-2023 Emergency department visit high/urgent severity [facility] Start: 03-27-2023 Patient discharge [facility] Start: 03-27-2023 [facility] Start: 03-27-2023 [facility] Start: 03-26-2023 Following clinical pathway protocol [facility] Start: 03-26-2023 Assessment of risk of venous thromboembolism [facility] Start: 03-26-2023 Incentive spirometry [facility] Start: 03-26-2023 Insertion of catheter into peripheral vein [facility] Start: 03-26-2023 Measuring intake and output [facility] Start: 03-26-2023 Providing care according to standard [facility] Start: 03-26-2023 Provision of activity privileges [facility] Start: 03-26-2023 Referral to occupational therapist [facility] Start: 03-26-2023 Referral to service [facility] Start: 03-26-2023 [facility] Start: 03-26-2023 Verification routine [facility] Start: 03-26-2023 Admission procedure [facility] Start: 03-26-2023 Hospital admission, emergency, from emergency room, medical nature [facility] Start: 03-26-2023 [facility] Start: 03-26-2023 Inhalation therapy procedure [facility] Start: 03-19-2023 Fresh frozen plasma [facility] Start: 03-19-2023 End: 03-19-2023 [facility] Start: 03-19-2023 Administration of blood product [facility] Start: 03-13-2023 ANNUAL PCP TEAM CHRONIC DISEASE VISIT ANNUAL PCP TEAM CHRONIC DISEASE VISIT [facility] Start: 03-13-2023 BP CONTROLLED (<130/80) BP CONTROLLED (<130/80) [facility] Start: 03-01-2023 Covid-19 Vaccine () Covid-19 Vaccine () [facility] Start: 02-19-2023 Advance Directive Discussion Advance Directive Discussion [facility] Start: 02-19-2023 Behavioral Health Screening Behavioral Health Screening [facility] Start: 02-19-2023 Depression Assessment Depression Assessment [facility] Start: 01-23-2023 End: 08-23-2023 Ct thorax w/o contrast material CT CHEST WO IVCON Radiology Routine Lung nodules Bronchiectasis without complication (HCC) Expected: 01/23/2023, Expires: 08/23/2023 [facility] Work Phone: Comment on above: Expected: 01/23/2023, Expires: Start: 11-29-2022 BP CONTROLLED (<130/80) BP CONTROLLED (<130/80) [facility] Start: 11-10-2022 Adult depression screening assessment DEPRESSION SCREENING [facility] Start: 10-20-2022 Covid-19 Vaccine () Covid-19 Vaccine () [facility] Start: 10-20-2022 Influenza vaccination INFLUENZA (#1) [facility] Start: 09-20-2022 BP CONTROLLED (<130/80) BP CONTROLLED (<130/80) [facility] Start: 09-05-2022 Mammography MAMMOGRAM [facility] Start: 07-11-2022 ANNUAL PCP TEAM CHRONIC DISEASE VISIT ANNUAL PCP TEAM CHRONIC DISEASE VISIT [facility] Start: 07-11-2022 BP CONTROLLED (<130/80) BP CONTROLLED (<130/80) [facility] Start: 03-14-2022 ANNUAL PCP TEAM CHRONIC DISEASE VISIT ANNUAL PCP TEAM CHRONIC DISEASE VISIT [facility] Start: 03-14-2022 BP CONTROLLED (<130/80) BP CONTROLLED (<130/80) [facility] Start: 02-19-2022 ADVANCE DIRECTIVE DISCUSSION ADVANCE DIRECTIVE DISCUSSION [facility] Start: 02-19-2022 DEPRESSION ASSESSMENT DEPRESSION ASSESSMENT [facility] Start: 01-05-2022 COVID-19 VACCINE (7 - Pfizer risk series) COVID-19 VACCINE (7 - Pfizer risk series) [facility] Start: 11-11-2021 COVID-19 VACCINE (5 - Booster for Pfizer series) COVID-19 VACCINE (5 - Booster for Pfizer series) [facility] Start: 11-10-2021 End: 01-10-2022 Alpha 1 antitrypsin [Mass/volume] in Serum or Plasma [id number] Lab Routine Chronic obstructive pulmonary disease, unspecified COPD type (HCC) Expected: 11/10/2021, Expires: 01/10/2022 [facility] Work Phone: Comment on above: Expected: 11/10/2021, Expires: 2 Start: 10-20-2021 Influenza vaccination INFLUENZA (#1) [facility] Start: 07-13-2021 Adult depression screening assessment DEPRESSION SCREENING [facility] Start: 06-01-2021 Mammography MAMMOGRAM [facility] Start: 02-19-2021 ADVANCE DIRECTIVE DISCUSSION ADVANCE DIRECTIVE DISCUSSION [facility] Start: 02-19-2021 DEPRESSION ASSESSMENT DEPRESSION ASSESSMENT [facility] Start: 02-08-2021 COVID-19 VACCINE (4 - Booster for Pfizer series) COVID-19 VACCINE (4 - Booster for Pfizer series) [facility] Start: 12-27-2020 LIPID SCREEN LIPID SCREEN [facility] Start: 08-04-2017 FECAL OCCULT BLOOD FECAL OCCULT BLOOD [facility] Start: 08-04-2017 Screening for malignant neoplasm of colon Fecal Occult Blood [facility] Start: 2007 RSV Vaccine (1 - 1-dose 60+ series) RSV Vaccine (1 - 1-dose 60+ series) [facility] Start: 05-29-1992 COLOGUARD (FIT-DNA) COLOGUARD (FIT-DNA) [facility] Start: 05-29-[address] COLONOGRAPHY [facility] Start: 05-29-1992 Screening for malignant neoplasm of colon [facility] Start: 05-29-1992 SIGMOIDOSCOPY SIGMOIDOSCOPY [facility] Start: 05-29-1977 Zoledronic acid therapy ALPHA-1 ANTITRYPSIN DEFICIENCY SCREENING [facility] Start: 05-29-1965 Anxiety Screening Anxiety Screening [facility] Start: 05-29-1965 BP CONTROLLED (<130/80) BP CONTROLLED (<130/80) [facility] Start: 05-29-1965 Depression Screening Depression Screening [facility] Alanine aminotransfe rase [Enzymatic activity/volume] in Serum or Plasma [facility] Albumin [Mass/volume ] in Serum or Plasma [facility] Alkaline phosphatase [Enzymatic activity/volume] in Serum or Plasma [facility] Anion gap measurement [facility] Anion gap measurement [facility] Anion gap measurement [facility] Anion gap measurement [facility] Aspartate aminotransferase [Enzymatic activity/volume] in Serum or Plasma [facility] End: 08-21-2024 Basic metabolic 2000 panel - Serum or Plasma BASIC METABOLIC PANEL Lab Routine Encounter for long-term current use of medication 20 Occurrences starting 08/22/2023 until 08/21/2024 [facility] Work Phone: Comment on above: 20 Occurrences starting 08/22/2023 until 08/21/2024 Bilirubin measuremen t, urine [facility] Bilirubin, total measurement [facility] BUN/Creatinine ratio [facility] BUN/Creatinine ratio [facility] BUN/Creatinine ratio [facility] BUN/Creatinine ratio [facility] Calcium [Mass/volume ] in Serum or Plasma [facility] Calcium [Mass/volume ] in Serum or Plasma [facility] Calcium [Mass/volume ] in Serum or Plasma [facility] Calcium [Mass/volume ] in Serum or Plasma [facility] Carbon dioxide, tota l [Moles/volume] in Serum or Plasma [facility] Carbon dioxide, tota l [Moles/volume] in Serum or Plasma [facility] Carbon dioxide, tota l [Moles/volume] in Serum or Plasma [facility] Carbon dioxide, tota l [Moles/volume] in Serum or Plasma [facility] CARDIAC REHAB II OUT PT ([place], [place]) CARDIAC REHAB II OUTPT ([place], [place]) BIC Routine Nonrheumatic aortic valve 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) Ordered: 05/05/2024 [facility] Work Phone: Comment on above: Ordered: 05/05/2024 Chloride [Moles/volu me] in Serum or Plasma [facility] Chloride [Moles/volu me] in Serum or Plasma [facility] Chloride [Moles/volu me] in Serum or Plasma [facility] Chloride [Moles/volu me] in Serum or Plasma [facility] Creatinine [Moles/volume] in Serum or Plasma [facility] Creatinine [Moles/volume] in Serum or Plasma [facility] Creatinine [Moles/volume] in Serum or Plasma [facility] Creatinine [Moles/volume] in Serum or Plasma [facility] CT Chest WO contrast CT CHEST WO IVCON Radiology Routine Disseminated histoplasmosis 08/30/2023 2:07 PM EDT [facility] Work Phone: End: 09-26-2024 CT Chest WO contrast CT CHEST WO IVCON Radiology Routine Disseminated histoplasmosis 1 Occurrences starting 08/28/2023 until 09/26/2024 [facility] Comment on above: 1 Occurrences starting 08/28/2023 until 09/26/2024 End: 12-29-2022 Ct thorax w/o contrast material CT CHEST WO IVCON Radiology Routine Lung nodules 1 Occurrences starting 11/29/2021 until 12/29/2022 [facility] Work Phone: Comment on above: 1 Occurrences starting 11/29/2021 until 12/29/2022 End: 02-06-2025 CTA Chest vessels and Abdominal vessels and Pelvis vessels W contrast IV CTA CHEST/ABD/PEL (GATED) W IVCON Radiology Routine Nonrheumatic aortic valve stenosis Encounter for preprocedural cardiovascular examination 1 Occurrences starting 01/08/2024 until 02/06/2025 [facility] Comment on above: 1 Occurrences starting 01/08/2024 until 02/06/2025 End: 08-12-2022 ECG COMPLETE ECG COMPLETE ECG Routine Aortic stenosis with bicuspid valve Essential hypertension 1 Occurrences starting 08/12/2021 until 08/12/2022 [facility] Work Phone: Comment on above: 1 Occurrences starting 08/12/2021 until 08/12/2022 End: 01-07-2025 ECG COMPLETE ECG COMPLETE ECG Routine Nonrheumatic aortic valve stenosis Aortic valve disorder 1 Occurrences starting 01/08/2024 until 01/07/2025 [facility] Comment on above: 1 Occurrences starting 01/08/2024 until 01/07/2025 End: 04-15-2025 ECG COMPLETE ECG COMPLETE ECG Routine Nonrheumatic aortic valve stenosis Aortic valve disorder 1 Occurrences starting 04/15/2024 until 04/15/2025 [facility] Work Phone: Comment on above: 1 Occurrences starting 04/15/2024 until 04/15/2025 End: 05-02-2025 ECG COMPLETE ECG COMPLETE ECG Routine Nonrheumatic aortic valve stenosis 1 Occurrences starting 05/02/2024 until 05/02/2025 [facility] Work Phone: Comment on above: 1 Occurrences starting 05/02/2024 until 05/02/2025 End: 08-26-2024 ECHO LIMITED ECHO LIMITED Cardiology Routine Nonrheumatic aortic valve stenosis Mitral valve stenosis, non-rheumatic Essential hypertension Pericardial effusion (noninflammatory) 1 Occurrences starting 08/27/2023 until 08/26/2024 [facility] Work Phone: Comment on above: 1 Occurrences starting 08/27/2023 until 08/26/2024 End: 08-12-2022 Echocardiography ECHO Cardiology Routine Aortic stenosis with bicuspid valve Essential hypertension 1 Occurrences starting 08/12/2021 until 08/12/2022 [facility] Work Phone: Comment on above: 1 Occurrences starting 08/12/2021 until 08/12/2022 End: 08-30-2023 Echocardiography ECHO Cardiology Routine Aortic stenosis with bicuspid valve 1 Occurrences starting 08/29/2022 until 08/30/2023 [facility] Work Phone: Comment on above: 1 Occurrences starting 08/29/2022 until 08/30/2023 End: 01-07-2025 Echocardiography ECHO Cardiology Routine Nonrheumatic aortic valve stenosis Aortic valve disorder 1 Occurrences starting 01/08/2024 until 01/07/2025 [facility] Comment on above: 1 Occurrences starting 01/08/2024 until 01/07/2025 Erythrocyte mean corpuscular volume determination [facility] Glucose [Mass/volume ] in Serum or Plasma [facility] Glucose [Mass/volume ] in Serum or Plasma [facility] Glucose [Mass/volume ] in Serum or Plasma [facility] Glucose [Mass/volume ] in Serum or Plasma [facility] Hematocrit [Volume Fraction] of Blood [facility] Hemoglobin [Mass/vol ume] in Blood [facility] Hemoglobin [Presence ] in Urine [facility] Histoplasma capsulat um Ab [Presence] in Serum by Immune diffusion (ID) HISTOPLASMA AB ID Lab Routine Disseminated histoplasmosis Encounter for long-term (current) use of antibiotics 08/30/2023 1:14 PM EDT [facility] INR in Blood by Coagulation assay [facility] INR in Blood by Coagulation assay [facility] INR in Blood by Coagulation assay [facility] INR in Blood by Coagulation assay [facility] INR in Blood by Coagulation assay [facility] INR in Blood by Coagulation assay [facility] INR in Blood by Coagulation assay [facility] End: 10-27-2022 INR in Platelet poor plasma by Coagulation assay INR (POC) Lab Routine Personal history of DVT (deep vein thrombosis) Once per month for 99 Occurrences starting 11/09/2021 until 10/27/2022 [facility] Work Phone: Comment on above: Once per month for 99 Occurrences starti ng 11/09/2021 until 10/27/2022 End: 11-10-2023 INR in Platelet poor plasma by Coagulation assay INR (POC) Lab Routine Personal history of DVT (deep vein thrombosis) Once per month for 99 Occurrences starting 11/09/2022 until 11/10/2023 [facility] Work Phone: Comment on above: Once per month for 99 Occurrences starti ng 11/09/2022 until 11/10/2023 End: 11-14-2024 INR in Platelet poor plasma by Coagulation assay INR (POC) Lab Routine Personal history of DVT (deep vein thrombosis) Once per month for 99 Occurrences starting 11/15/2023 until 11/14/2024 [facility] Work Phone: Comment on above: Once per month for 99 Occurrences starti ng 11/15/2023 until 11/14/2024 Leukocytes [#/volume ] in Blood [facility] End: 03-14-2022 LIPID PANEL BASIC LIPID PANEL BASIC Lab Routine Essential hypertension 1 Occurrences starting 03/14/2021 until 03/14/2022 [facility] Work Phone: Comment on above: 1 Occurrences starting 03/14/2021 until 03/14/2022 End: 02-06-2025 LUNG DIFFUSION CAPACITY (DLCO) LUNG DIFFUSION CAPACITY (DLCO) PFT Routine Nonrheumatic aortic valve stenosis 1 Occurrences starting 01/08/2024 until 02/06/2025 [facility] Comment on above: 1 Occurrences starting 01/08/2024 until 02/06/2025 LUNG DIFFUSION CAPAC ITY (DLCO) LUNG DIFFUSION CAPACITY (DLCO) PFT Routine Nonrheumatic aortic valve stenosis 03/25/2024 9:28 AM EST [facility] Work Phone: End: 11-26-2023 SABINO SCREENING SABINO SCREENING Radiology Routine Encounter for screening mammogram for breast cancer 1 Occurrences starting 10/27/2022 until 11/26/2023 [facility] Work Phone: Comment on above: 1 Occurrences starting 10/27/2022 until 11/26/2023 End: 11-26-2023 SABINO SCREENING W ALIZE SABINO SCREENING W ALIZE Radiology Routine Encounter for screening mammogram for breast cancer 1 Occurrences starting 10/27/2022 until 11/26/2023 [facility] Work Phone: Comment on above: 1 Occurrences starting 10/27/2022 until 11/26/2023 Mean corpuscular hemoglobin concentration determination [facility] Mean corpuscular hemoglobin determination [facility] Measurement of keton es in urine using dipstick [facility] Measurement of renal function [facility] Measurement of renal function [facility] Measurement of renal function [facility] Measurement of renal function [facility] Microscopic urinalysis [facility] Microscopic urinalysis [facility] Neutrophil count [facility] Neutrophil percent differential count [facility] Organism count, microscopic method [facility] Patient Education [facility] Work Phone: Patient referral [facility] Work Phone: pH of Urine [facility] Platelets [#/volume] in Blood [facility] Potassium [Moles/vol ume] in Serum or Plasma [facility] Potassium [Moles/vol ume] in Serum or Plasma [facility] Potassium [Moles/vol ume] in Serum or Plasma [facility] Potassium [Moles/vol ume] in Serum or Plasma [facility] End: 10-27-2022 PT panel - Platelet poor plasma by Coagulation assay PROTHROMBIN TIME/PT Lab STAT Personal history of DVT (deep vein thrombosis) Once per month for 99 Occurrences starting 11/09/2021 until 10/27/2022 [facility] Work Phone: Comment on above: Once per month for 99 Occurrences starti ng 11/09/2021 until 10/27/2022 End: 11-09-2023 PT panel - Platelet poor plasma by Coagulation assay PROTHROMBIN TIME/PT Lab STAT Personal history of DVT (deep vein thrombosis) Once per month for 99 Occurrences starting 11/09/2022 until 11/09/2023 [facility] Work Phone: Comment on above: Once per month for 99 Occurrences starti ng 11/09/2022 until 11/09/2023 End: 11-14-2024 PT panel - Platelet poor plasma by Coagulation assay PROTHROMBIN TIME Lab STAT Personal history of DVT (deep vein thrombosis) Once per month for 99 Occurrences starting 11/15/2023 until 11/14/2024 [facility] Comment on above: Once per month for 99 Occurrences starti ng 11/15/2023 until 11/14/2024 Red blood cell count [facility] Red cell distributio n width determination [facility] Sodium [Moles/volume ] in Serum or Plasma [facility] Sodium [Moles/volume ] in Serum or Plasma [facility] Sodium [Moles/volume ] in Serum or Plasma [facility] Sodium [Moles/volume ] in Serum or Plasma [facility] Specific gravity of Urine [facility] End: 02-06-2025 SPECT Heart for infarct W Tc-99m PYP IV NM SPECT/CT CARDIAC AMYLOID Radiology Routine Nonrheumatic aortic valve stenosis 1 Occurrences starting 01/08/2024 until 02/06/2025 [facility] Comment on above: 1 Occurrences starting 01/08/2024 until 02/06/2025 End: 02-06-2025 SPIROMETRY BASELINE ONLY SPIROMETRY BASELINE ONLY PFT Routine Nonrheumatic aortic valve stenosis 1 Occurrences starting 01/08/2024 until 02/06/2025 [facility] Work Phone: Comment on above: 1 Occurrences starting 01/08/2024 until 02/06/2025 SPIROMETRY BASELINE ONLY SPIROME TRY BASELINE ONLY PFT Routine Nonrheumatic aortic valve stenosis 03/25/2024 9:28 AM EST [facility] Work Phone: Total protein measurement [facility] Urea nitrogen [Mass/volume] in Serum or Plasma [facility] Urea nitrogen [Mass/volume] in Serum or Plasma [facility] Urea nitrogen [Mass/volume] in Serum or Plasma [facility] Urea nitrogen [Mass/volume] in Serum or Plasma [facility] Urinalysis, blood, qualitative [facility] Urine dipstick for glucose [facility] Urine dipstick for leukocyte esterase [facility] Urine dipstick for nitrite [facility] Urine dipstick for protein [facility] Urine examination [facility] Urine microscopy: epithelial cells [facility] Urine microscopy: epithelial cells [facility] Urine microscopy: re d cells [facility] Urine Microscopy: wh ite cells [facility] Urobilinogen [Presen ce] in Urine [facility] End: 07-09-2024 US Lower extremity vein US LEG VEIN DVT UNL VAS LAB Vascular Lab STAT Acute pain of right knee Pain and swelling of right lower leg 1 Occurrences starting 07/10/2023 until 07/09/2024 [facility] Work Phone: Comment on above: 1 Occurrences starting 07/10/2023 until 07/09/[address] [facility] End: 02-06-2025 XR Chest PA and Lateral XR CHEST 2V FRONTAL/LAT Radiology Routine Nonrheumatic aortic valve stenosis 1 Occurrences starting 01/08/2024 until 02/06/2025 [facility] Comment on above: 1 Occurrences starting 01/08/2024 until 02/06/2025 End: 05-15-2025 XR Chest PA and Lateral XR CHEST 2V FRONTAL/LAT Radiology Routine Nonrheumatic aortic valve stenosis Aortic valve disorder 1 Occurrences starting 04/15/2024 until 05/15/2025 [facility] Comment on above: 1 Occurrences starting 04/15/2024 until 05/15/2025 End: 08-16-2024 XR Knee - right 4 Views XR KNEE GENERAL 4V AP BOTH/PA BOTH/LAT/MERC RIGHT Radiology Routine Right knee pain, unspecified chronicity 1 Occurrences starting 07/18/2023 until 08/16/2024 [facility] Work Phone: Comment on above: 1 Occurrences starting 07/18/2023 until 08/16/2024 End: 08-16-2024 XR Lower extremity - bilateral AP W standing XR LEG FRONTAL HIP TO ANKLE MECHANICAL AXIS Radiology Routine Right knee pain, unspecified chronicity 1 Occurrences starting 07/18/2023 until 08/16/2024 [facility] Comment on above: 1 Occurrences starting 07/18/2023 until 08/16/2024 [facility] [...] seasonal, preservative-free Geno Hart MD Work Phone: [facility] 11-22-2023 influenza virus vacc ine, unspecified formulation Geno Hart MD Work Phone: [facility] 08-01-2023 respiratory syncytia l virus (RSV) vaccine, adjuvanted (AREXVY) Ilda Miller RN Work Phone: [facility] 08-01-2023 zoster vaccine recombinant Claudine Durán MD Work Phone: [facility] 01-04-2023 COVID-19 vaccine, ag e 12+ yr, season (PFIZER-[employer]) Jimbo Swanson DIAMOND DRILLER HELPER.ROCKBOARD LATHER Work Phone: [facility] Work Phone: 10-27-2022 influenza (HD-IIV4) vaccine, age 65+ yr, high dose, quadrivalent, PF (FLUZONE HIGH-DOSE) Jimbo Swanson DIAMOND DRILLER HELPER.ROCKBOARD LATHER Work Phone: [facility] Work Phone: 10-27-2022 influenza virus vacc ine, unspecified formulation Anticoag Wstr Work Phone: [facility] 11-18-2021 influenza, high dose seasonal, preservative-free Ilda Miller RN Work Phone: [facility] 11-10-2021 COVID-19 booster vaccine, age 12+ yr, bivalent (PFIZER-BIONTECH) Jimbo Swanson DIAMOND DRILLER HELPER.ROCKBOARD LATHER Work Phone: [facility] Work Phone: 11-10-2021 influenza, high-dose , quadrivalent vaccine (FLUZONE HIGH DOSE QUADRIVALENT) Jimbo Sanmaría ROSALES.ROCKBOARD LATHER Work Phone: [facility] Work Phone: 07-11-2021 Covid (Pfizer) Dr. Claudine Martinez [facility] Work Phone: [facility] 07-11-2021 COVID-19 vaccine, ag e 12+ yr (PFIZER-BIONTECH - ARIAS TOP) [facility] Work Phone: [facility] 11-21-2020 COVID-19 original vaccine, age 12+ yr, monovalent (PFIZER-BIONTECH - PURPLE TOP) Claudine Durán MD Work Phone: [facility] 11-21-2020 influenza, high dose seasonal, preservative-free Ilda Miller RN Work Phone: [facility] 11-09-2020 COVID-19 vaccine, ag e 12+ yr (PFIZER-BIONTECH - PURPLE TOP) [facility] 11-09-2020 influenza, high-dose , quadrivalent vaccine (FLUZONE HIGH DOSE QUADRIVALENT) [facility] Work Phone: 05-13-2020 COVID-19 vaccine, ag e 12+ yr (PFIZER-BIONTECH - PURPLE TOP) [facility] Work Phone: 04-22-2020 COVID-19 vaccine, ag e 12+ yr (PFIZER-BIONTECH - PURPLE TOP) [facility] Work Phone: 11-06-2019 influenza, high-dose , quadrivalent vaccine (FLUZONE HIGH DOSE QUADRIVALENT) [facility] Work Phone: 11-06-2019 tetanus and diphther ia toxoids, adsorbed, preservative free, for adult use (2 Lf of tetanus toxoid and 2 Lf of diphtheria toxoid) Dr. Claudine Durán Work Phone: [facility] 11-06-2019 tetanus and diphther ia toxoids, adsorbed, preservative free, for adult use (5 Lf of tetanus toxoid and 2 Lf of diphtheria toxoid) [facility] Work Phone: 11-03-2019 influenza, high dose seasonal, preservative-free Ilda Miller RN Work Phone: [facility] 11-28-2018 zoster vaccine recombinant [facility] 11-25-2018 influenza, high dose seasonal, preservative-free Ilda Miller RN Work Phone: [facility] 10-26-2018 Influenza, high dose seasonal Dr. Claudine Durán MD Work Phone: [facility] 10-26-2018 influenza, high dose seasonal, preservative-free [facility] 07-23-2018 zoster vaccine recombinant [facility] 11-27-2017 Influenza, high dose seasonal Dr. Claudine Durán MD Work Phone: [facility] 11-27-2017 influenza, high dose seasonal, preservative-free [facility] 02-07-2017 influenza virus vacc ine, live, attenuated, for intranasal use Ilda Miller RN Work Phone: [facility] 02-07-2017 pneumococcal polysaccharide vaccine, Lachelle Durán MD Work Phone: [facility] 01-31-2017 Influenza, high dose seasonal Dr. Claudine Durán MD Work Phone: [facility] 01-31-2017 influenza, high dose seasonal, preservative-free [facility] 12-13-2016 pneumococcal polysaccharide vaccineLachelle MD Work Phone: [facility] 11-28-2016 pneumococcal polysaccharide vaccineLachelle MD Work Phone: [facility] 12-13-2015 influenza, high dose seasonal, preservative-free [facility] 11-10-2014 Influenza, high dose seasonal Dr. Claudine Durán MD Work Phone: [facility] 11-10-2014 influenza, high dose seasonal, preservative-free [facility] 03-30-2014 pneumococcal conjuga te vaccine, 13 valent [facility] 12-08-2013 influenza virus vacc ine, live, attenuated, for intranasal use Ilda Miller RN Work Phone: [facility] 12-08-2013 pneumococcal conjuga te vaccine, 7 valent Ilda Miller RN Work Phone: [facility] 12-08-2013 pneumococcal polysaccharide vaccine, 23 valrandall Durán MD Work Phone: [facility] 11-24-2013 influenza, injectabl e, quadrivalent, preservative free Dr. Claudine Durán Work Phone: [facility] 11-24-2013 influenza, seasonal, injectable [facility] 03-24-2013 pneumococcal polysaccharide vaccine, 23 valent [facility] 11-18-2012 influenza virus vacc ine, unspecified formulation [facility] Work Phone: 11-10-2011 influenza virus vacc ine, unspecified formulation [facility] 11-23-2010 influenza virus vacc ine, unspecified formulation [facility] 10-07-2009 tetanus toxoid, redu amarilis diphtheria toxoid, and acellular pertussis vaccine, adsorbed [facility] 10-29-2008 influenza virus vacc ine, unspecified formulation [facility] 01-10-2008 influenza virus vacc ine, whole virus Ilda Miller RN Work Phone: [facility] 01-10-2008 influenza, injectabl e, quadrivalent, preservative free Dr. Claudine Durán Work Phone: [facility] 07-09-2007 tuberculin skin test ; purified protein derivative solution, intradermal Jimbo Swanson DIAMOND DRILLER HELPER.ROCKBOARD LATHER Work Phone: [facility] 06-24-2007 tuberculin skin test ; purified protein derivative solution, intradermal Jimbo Swanson DIAMOND DRILLER HELPER.ROCKBOARD LATHER Work Phone: [facility] 09-22-1999 diphtheria and tetan us toxoids, adsorbed for pediatric use Nara Ilan [facility] Work Phone: Payers Date Payer Category Payer Self-pay [id number] 2021 Medicare AETNA MEDICARE A ETNA MEDICARE PPO [id number] 2021-Present [phone] [address] [place] [address] PPO [id number] 2021 Medicare AETNA MEDICARE A ETNA MEDICARE PPO [id number] 2021-Present [phone] [address] [place] [address] PPO [id number] 2021 Medicare (Managed Care[place] [facility] [id number] 2021 Private Health Insurance [facility] [id number] 2011 Unknown [id number] 1945 Unknown [id number] Medicare [id number] Private Health Insurance Unknown [id number] Unknown [id number] Unknown [id number] 462 Unknown [id number] Unknown [id number] 462 Unknown [id number] 462 Unknown [id number] 462 Unknown [id number] 462 Unknown [id number] 462 Unknown [id number] 462 Unknown [id number] 462 Unknown [id number] 462 Social History Date Type Detail Facility Start: 08-28-2019 End: 10-11-2023 Tobacco smoking status NHIS Ex-smoker [facility] Start: 02-19-1979 End: 02-19-1989 History of tobacco use Current smoker [facility] Start: 02-19-1979 End: 02-19-1989 History of tobacco use Cigarette Smoker [facility] Start: 05-03-2021 End: 07-22-2024 Alcohol intake Current drinker of alcohol (finding) [facility] Start: 11-28-2019 End: 03-06-2022 History SDOH Alcohol Frequency 2 [facility] Start: 11-28-2019 End: 03-06-2022 History SDOH Alcohol Std Drinks 1 [facility] Start: 03-31-2019 End: 03-06-2022 History SDOH Social Connections [facility] 3 [facility] Start: 03-31-2019 End: 03-06-2022 History SDOH Social Connections Living 4 [facility] Start: 07-28-2019 End: 03-06-2022 History SDOH Physical Activity DPW 5 [facility] Start: 03-31-2019 Education 18 [facility] Start: 08-28-2019 End: 11-10-2021 Tobacco Comment Late heavy smoker. [facility] Start: 1945 Sex Assigned At Female [facility] Start: 05-02-2021 End: 12-31-2021 Exposure to SARS-CoV-2 (event) Not sure [facility] Work Phone: Start: 12-11-2017 End: 04-05-2023 Tobacco smoking status PRIS Unknown if ever smoked [facility] Start: 08-28-2019 End: 06-22-2022 Cigarettes smoked current (pack per day) - Reported 1 [facility] Start: 08-28-2019 End: 10-11-2023 Tobacco use and exposure Smokeless tobacco non-user [facility] Start: 03-06-2022 End: 06-22-2022 Social connection and isolation panel [facility] Do you belong to any clubs or organizations such as baptism groups, unions, fraternal or athletic groups, or school groups? Yes [facility] Are you now , , , , never or living with a partner? [facility] How often to you hav e a drink containing alcohol? Monthly or less [facility] How many standard dr inks containing alcohol do you have on a typical day? 1 or 2 [facility] How often do you hav e 6 or more drinks on 1 occasion? Never [facility] How hard is it for y ou to pay for the very basics like food, housing, medical care, and heating Not hard at all [facility] Do you feel stress - tense, restless, nervous, or anxious, or unable to sleep at night because your mind is troubled all the time - these days [OSQ] Not at all [facility] (I/We) worried wheth er (my/our) food would run out before (I/we) got money to buy more. Never true [facility] In the past 12 month s, was there a time when you were not able to pay the mortgage or rent on time? No [facility] Start: 03-04-2019 Gender identity Identifies as female gender (finding) [facility] Start: 03-04-2019 Sexual orientation Heterosexual (finding) [facility] Do you feel stress - tense, restless, nervous, or anxious, or unable to sleep at night because your mind is troubled all the time - these days [OSQ] To some extent [facility] How hard is it for y ou to pay for the very basics like food, housing, medical care, and heating Not very hard [facility] Start: 2024 Sex Female (finding) [facility] Medical Equipment Procedure Code Equipment Code Equipment Origin al Text Equipment Identifier Dates Navitor With Radiopaque Markers, 25mm - [id number] Start: 05-02-2024 Goals Date Patient Goal [...] 05/03/2024 11:03 AM Doreen Kohler, PAULA No [facility] 05-03-2024 Are you blind, or do you have serious difficulty seeing, even when wearing glasses No 05/03/2024 11:03 AM Doreen Kohler, PAULA No [facility] 05-03-2024 Do you have serious difficulty walking or climbing stairs No 05/03/2024 11:03 AM Doreen Kohler, PAULA No [facility] 05-03-2024 Do you have difficul ty dressing or bathing No 05/03/2024 11:03 AM Doreen Kohler, PAULA No [facility] 05-03-2024 Because of a physica l, mental, or emotional condition, do you have difficulty doing errands alone such as visiting a physician's office or shopping No 05/03/2024 11:03 AM Doreen Kohler, PAULA No [facility] 03-24-2024 Are you deaf, or do you have serious difficulty hearing No 03/24/2024 3:46 PM Karl Browne RN No [facility] 03-24-2024 Are you blind, or do you have serious difficulty seeing, even when wearing glasses No 03/24/2024 3:46 PM Karl Browne RN No [facility] 03-24-2024 Do you have serious difficulty walking or climbing stairs No 03/24/2024 3:46 PM Karl Browne RN No [facility] 03-24-2024 Do you have difficul ty dressing or bathing No 03/24/2024 3:46 PM Karl Browne RN No [facility] 03-24-2024 Because of a physica l, mental, or emotional condition, do you have difficulty doing errands alone such as visiting a physician's office or shopping No 03/24/2024 3:46 PM Karl Browne RN No [facility] 04-30-2023 Functional status Ambulates;Bedr est;Bathro om [facility] Work Phone: 04-16-2023 Functional status Ambulates [facility] Work Phone: 04-05-2023 Functional status Ambulates;Bath room [facility] Work Phone: 03-27-2023 Functional status Up ad rupal [facility] Work Phone: Mental Status Date Assessment Result Facility 05-03-2024 Because of a physica l, mental, or emotional condition, do you have serious difficulty concentrating, remembering, or making decisions No 05/03/2024 11:03 AM Doreen Kohler RN No [facility] 03-24-2024 Because of a physica l, mental, or emotional condition, do you have serious difficulty concentrating, remembering, or making decisions No 03/24/2024 3:46 PM Karl Browne RN No [facility] 04-30-2023 Cognitive function Voice/Name [facility] Work Phone: 04-24-2023 Cognitive function Appropriate [facility] Work Phone: 04-16-2023 Cognitive function Voice/Name;Touch/Shaki ng [facility] Work Phone: 04-05-2023 Cognitive function Voice/Name [facility] Work Phone: 03-31-2023 Cognitive function Level Of Cons ciousness Awake;Alert;Appropriate;Fol lows Commands [facility] Work Phone: 03-27-2023 Cognitive function Appropriate;Cooperativ e [facility] Work Phone: 03-26-2023 Cognitive function Voice/Name [facility] Work Phone: Clinical Notes 03-08-2018 to 08-21-2024 [...] 1 week. patient had inr completed at [facility] patients inr is 1.2 (patients inr [...] FYI - results being sent to doc business operations director due to pcp and team members are [...] the missed dose documented in this encounter [facility] 08-18-2024 Telephone encount er Note Prescription [...] Cintron LPN August 18, 2024 2:11 PM [facility] 08-18-2024 Miscellaneous Notes Formattin g of [...] 2024 2:11 PM documented in this encounter [facility] 08-06-2024 History of Presen t illness Narrative pcp agrees with information patient had inr completed at [facility] patients inr is 1.4 (patients inr [...] agree with recommendation documented in this encounter [facility] 07-29-2024 History of Presen t illness [...] 2024 10:11 AM documented in this encounter [facility] 07-22-2024 Lalitha Chester Brissa, DIAMOND DRILLER HELPER.REGIONAL CONTROLLER - 07/22/2024 2:32 PM EDT We discussed your post-TAVR follow-up: - Your EKG today showed sinus rhythm with some premature atrial contractions, which are not concerning. - Your echocardiogram and lab results are still pending. I will review these and send you a Belanit message with the results once they are [...] You can follow up with a local oil well service unit operator in [place] for your annual echocardiogram and routine care. If you prefer, you can also follow up at another [facility] or return here for your valve care. - as long as ECHO looks good today, you can follow-up with repeat ECHO in 1 years time - If you experience new or worsening symptoms, such as shortness of breath, chest pain, or leg swelling, please contact your oil well service unit operator or our office immediately. Next steps: - Attend your echocardiogram appointment today as scheduled. - I will contact you via Belanit with your echocardiogram and lab results once they are available. - Ensure you have a follow-up plan with a oil well service unit operator for your annual echocardiogram and routine care. Please let us know if you have any questions or concerns. Dr Saeed O: [phone] F: [phone] It was my pleasure to participate in the management of your care! Brissa Chester, MSN, DIAMOND DRILLER HELPER-REGIONAL CONTROLLER documented in this encounter [facility] 07-22-2024 History of Presen t illness Narrative Images from the original note were not included. [facility] [place] [facility] Department of Cardiovascular Medicine SECTION OF INTERVENTIONAL CARDIOLOGY OUTPATIENT VISIT DATE July 22, 2024 OUTPATIENT VISIT TYPE ESTABLISHED FOLLOW UP Primary Porcelain Buildup Assistant: Juvencio Saeed MD Chief Complaint: Patient here [...] successful TF TAVR via 14 Fr R DEFENSIVE DRIVING INSTRUCTOR with a 25 mm Navitor at nominal [...] the initiation of metoprolol succinate by a oil well service unit operator at [facility] a few days ago. She also reports occasional elevated blood pressure readings during rehab sessions. She denies chest pain, shortness of breath, dyspnea on exertion, orthopnea, PND, palpitations, lightheadedness, syncope, claudication, leg swelling, cough, and wheezing PAST CARDIAC HISTORY: See HPI PAST MEDICAL HISTORY Diagnosis Date Anemia Bone marrow involvement with histoplasmosis Aortic stenosis COPD (chronic obstructive pulmonary disease) ([facility]) Disseminated histoplasmosis Colitis, immunosuppression, 01/2018. Diverticulosis of colon (without mention of hemorrhage) Diverticulosis DVT, recurrent, lower extremity, acute ([facility]) 12/10/2014 GERD (gastroesophageal reflux disease) Hiatal hernia 02/25/2018 Hypertension Lung nodule Macular degeneration Mitral stenosis 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 rheumatoid factor ([facility]) 03/07/2015 Dr. Hurley ([facility]) Tricuspid regurgitation PAST SURGICAL HISTORY Procedure Laterality [...] SPINE FUSN,POST INTERBODY 2012 Dr. Armando at [facility]. Diskectomy and laminectomy PAST SURGICAL HISTORY OF [...] FOLIC ACID ORAL Take by mouth. vit A,C,J-Udjj-Wnpcjh (OCUVITE PRESERVISION) 2,148 mcg-113 mg-45 mg-17.4mg tab [...] and lab results; will communicate findings via [employer]. - Recommended annual echocardiogram follow-up; patient may choose to follow up locally or at [facility]. 2. Nonrheumatic mitral valve stenosis (I34.2) [...] rehab sessions. Initiated on Metoprolol Succinate by oil well service unit operator at [facility]. - Continue Metoprolol Succinate as prescribed. - Monitor BP regularly. 5. 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 6. History of recurrent deep vein thrombosis [...] will review these and send you a Belanit message with the results once they are [...] You can follow up with a local oil well service unit operator in [place] for your annual echocardiogram and routine care. If you prefer, you can also follow up at another [facility] facility or return here for your valve care. - as long as ECHO looks good today, you can follow-up with repeat ECHO in 1 years time - If you experience new or worsening symptoms, such as shortness of breath, chest pain, or leg swelling, please contact your oil well service unit operator or our office immediately. Next steps: - Attend your echocardiogram appointment today as scheduled. - I will contact you via Belanit with your echocardiogram and lab results once they are available. - Ensure you have a follow-up plan with a oil well service unit operator for your annual echocardiogram and routine care. [...] 4lbs from your dry weight, call your oil well service unit operator Exercise: Be active and exercise every day. Smoking and alcohol abstinence/cessation, if applicable Please Visit [email or web address] Questions or Concerns after you go home? Please call Nurse vector control specialist line at . I spent a total of >45 minutes on the date of the service which included preparing to see the patient, [id number] patient care, completing clinical documentation, obtaining and/or reviewing separately obtained history, performing a medically appropriate examination, counseling and educating the patient/family/caregiver, ordering medications, tests, or procedures, independently interpreting results (not separately reported), communicating results to the patient/family/caregiver, and care coordination (not separately reported). Brissa Chester, MSN, DIAMOND DRILLER HELPER-REGIONAL CONTROLLER documented in this encounter [facility] 07-21-2024 History of Presen t illness Narrative Noted, agree, thank you! patient had inr completed at [facility] patients inr is 1.4 (patients inr [...] agree with recommendation documented in this encounter [facility] 07-07-2024 History of Presen t illness Narrative pcp agrees with information patient had inr completed at [facility] patients inr is 1.4 (patients inr [...] agree with recommendation documented in this encounter [facility] 07-07-2024 Telephone encount er Note Prescription [...] Means RN July 07, 2024 12:02 PM [facility] 07-07-2024 Miscellaneous Notes Formattin g of [...] 2024 12:02 PM documented in this encounter [facility] 06-25-2024 History of Presen t illness Narrative Images from the original note were not included. [facility] Care Path Telephonic Outreach Provider Action/SHAYNE N/A Patient identified by Name and Date of . Discussed care with patient. [facility] Update Spoke with the pt. At this time. She has been doing very well. She said that cardiac rehab has been doing good and she enjoys it She established with a new oil well service unit operator at [place] as it was a little closer and [...] RN Incomplete Pt. Does not have a aquatics specialist Biannual Cardiology visit addressed 08/20/2024 05/26/2024 Pili [...] - Bi-Weekly Outreach (Recurring) Disposition Based on pc installation engineer, the following disposition is advised: No action needed Pili Benitez RN June 25, 2024 3:57 PM documented in this encounter [facility] 06-20-2024 Telephone encount er Note GEREMIAS 02/23/23 Patient phones requesting refills as follows: Requested Prescriptions Pending Prescriptions Disp Refills fluticasone (FLONASE) 50 mcg/actuation nasal spray 3 each 3 Sig: Use 1 spray in each nostril once daily. Please review and advise. Magalie Ngo LPN [facility] 06-20-2024 Miscellaneous Notes Formattin g of this note is different from the original. GEREMIAS 02/23/23 Patient phones requesting refills as follows: Requested Prescriptions Pending Prescriptions Disp Refills fluticasone (FLONASE) 50 mcg/actuation nasal spray 3 each 3 Sig: Use 1 spray in each nostril once daily. Please review and advise. Magalie Ngo LPN documented in this encounter [facility] 06-20-2024 Evaluation note Diagnosis Onset Date Resolution Mitral stenosis acute June 20, 2024 10:07am Severe aortic stenosis acute Ma y 2024 10:07am Hypertension chronic June 20 10:07am [facility] Work Phone: 1(553) 510-234204-07-2025 History of Present illness Narrative* Pili Benitez [...] 26, 2024 10:42 AM [facility] Telephone encounter Note * Telephone Encounter - Yesenia Weinstein LPN - 05/22/2024 11:34 AM EDT Information requested by Santos with [facility] Cardiac Rehab has been faxed as rquested [facility]04-03-2025 Miscellaneous Notes* Telephone Encounter - Yesenia Weinstein LPN - 05/22/2024 11:34 AM EDT Information requested by Santos with [facility] Cardiac Rehab has been faxed as rquested * Telephone Encounter - Lulu Quigley RN - 05/21/2024 11:00 AM EDT Santos with [facility] Cardiac Rehab calls to report that [...] physician. Phone number for further questions is [phone]. Lulu Quigley RN documented in [facility] encounter[facility]04-[facility]25 Telephone encounter Note * Telephone Encounter - Lulu Quigley RN - 05/21/2024 11:00 AM EDT Santos with [facility] Cardiac Rehab calls to report that [...] physician. Phone number for further questions is [phone]. Lulu Quigley RN [facility]04-01-2025 History of Present illness Narrative* Jimbo Swanson APRN.CNS - 05/20/2024 2:13 PM EDT Continue current dosing and recheck INR 2 weeks, advised of this at visit today. * Melissa Means RN - 05/20/2024 12:53 PM EDT patient had inr completed at [facility] patients inr is 1.6 (patients inr [...] is just slightly low documented in this encounterFort [facility]04-[facility]25 Instructions* Patient Instructions* Jimbo Swanson APRN.CNS [...] review all the medicines you take, even mpmi-psl-wjfocyr medicines. As you get older, the way [...] have certain medical conditions. documented in [facility] encounter[facility]04-[facility] History of Present illness Narrative* Jimbo [...] in the medical record. Outside specialists seen: [facility] Medical/Family history review Reviewed and [...] weeks. She will schedule cardiac rehab at [facility]. She would like to establish with local oil well service unit operator either in [place] at [facility]. Provided with pain medication to take at bedtime as needed for pain control affecting her sleep. Discussed possible OIC. She does note need for follow-up endoscopy at ~ 1 year from previous, prefers not to see Dr. Esteban. Jimbo Swanson APRN.ROCKBOARD LATHER documented in this encounterFort [facility]03-31-[facility]25 History of Present illness Narrative* Pili [...] a little hoarse today People in her baptism group are also sick She vacuumed her [...] so she is very involved in her baptism right now. No new SDOH concerns were [...] 19, 2024 11:12 AM documented in this encounter[facility]03-[facility] History of Present illness Narrative* Pili [...] confirmed she has since spoke with her COLOR MATCHER about that. 1.7-2.0 range established with her doctor as her desired range for her INR. Her ATB is completed that she was discharged on. She tolerated that well with no complaints. She's been getting out and going to baptism and her choir practices. 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 [facility]03-24-2025 Miscellaneous Notes* Telephone Encounter - Yesenia [...] when INR > 2.0 documented in this encounterFort [facility]03-21-2025 Telephone encounter Note * Telephone Encounter - Jimbo Swanson APRN.CNS - 05/09/2024 3:24 PM EDT Recommend continue with current dosing unchanged. Can check INR next week or Sunday or keep her scheduled appointment in Coumadin clinic on May 20. [facility]03-21-2025 Telephone encounter Note* Telephone Encounter - Yesenia Weinstein LPN - 05/09/2024 2:13 PM EDT Spoke with patient. Patient states she was released from the hospital on Sunday and she resumed her coumadin on Sunday. Her current dosing is coumadin 5 mg every day except on & Sun in which she takes 6 mg. No other finding per patient. [facility]03-[facility] Telephone encounter Note* Telephone Encounter - Yesenia Weinstein LPN - 05/09/2024 2:07 PM EDT ----- Message from Jimbo Timmons APRN.CNS sent at 05/09/2024 1:07 PM EDT ----- Check on current dosing of check on current dosing of Coumadin and when resumed. 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 She is to stop Aspirin when INR > 2.0 [facility]03-21-20[facility] Progress note* Result Encounter Note - Jimbo Swanson APRN.CNS - 05/09/2024 1:07 PM EDT Check on current dosing of check on current dosing of Coumadin and when resumed. 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 She is to stop Aspirin when INR > 2.0 [facility]03-17-2025 History of Present illness Narrative* Pili Benitez, RN - 05/05/2024 10:32 AM EDT Transition Care Management (TCM) Initial Outreach PCP Update / Actionable Items N/A HRTIC TCM Home Visit Referral Source of Stratification: TCM HUB Hospital Admission Status: Discharged Readmission Risk Score: 10% Patient's zip code: [address] Is zip code within program service area: [...] pt. And confirmed upcoming appts. Went to Porcelain Buildup Assistant office this morning- everything going well since [...] Cardiac rehab will be taking place at [facility]- She will call them to schedule She has good support from her baptism that help her get to her appts [...] TCM outreach phone calls Patient discharged from [facility] Discharge date: 05/03/24 Admitted for: TAVR procedure Readmission Risk: 10 Value-Based Contract: [employer] SANDY Contact: Contact made with patient: Yes Hi, my name is Pili Benitez RN and I am calling from the [facility] on behalf of your PrimaryCare Provider, [...] I will send your request to a energy specialist who will contact and assist you with [...] 05, 2024 10:45 AM documented in this encounterFort [facility] Hospital03-17-2025 Instructions* Patient Instructions* Adalid Clark APRN.REGIONAL CONTROLLER - 05/05/2024 8:34 AM EDT Follow up/Disposition: [...] 4lbs from your dry weight, call your oil well service unit operator Exercise: Be active and exercise every day. Smoking and alcohol abstinence/cessation, if applicable Heart Failure Education Booklet: information given previously. Please Visit [email or web address] documented in this encounterFort [facility] Hospital03-17-2025 History of Present illness Narrative* Adalid Clark APRN.CNP - 05/05/2024 8:14 AM EDT Images from the original note were not included. [facility] [place] [facility] Department of Cardiovascular Medicine SECTION OF INTERVENTIONAL CARDIOLOGY OUTPATIENT VISIT DATE May 05, 2024 OUTPATIENT VISIT TYPE ESTABLISHED FOLLOW UP Primary Porcelain Buildup Assistant: Dr. Saeed Chief Complaint: Patient here for cardiac follow up evaluation History of Present Illness: Patient is a 78 year old female who presents for follow up visit today. 05/02/2024 s/p TF TAVR via 14 Fr R DEFENSIVE DRIVING INSTRUCTOR with a 25 mm Navitor Reports has [...] s/p TF TAVR via 14 Fr R DEFENSIVE DRIVING INSTRUCTOR with a 25 mm Navitor -Echo post trace AI, gradients 12/6mmHg HTN disseminated histoplasmosis (ongoing treatment with undetectable histo antigen 12/19) VTE s/p IVC filter (warfarin) GIB in July from duodenal ulcer s/p cautery RA (but off treatment d/t histoplasmosis) COPD ASSESSMENT/ IMPRESSION 05/02/2024 s/p TF TAVR via 14 Fr R DEFENSIVE DRIVING INSTRUCTOR with a 25 mm Navitor Reports has [...] 4lbs from your dry weight, call your oil well service unit operator Exercise: Be active and exercise every day. Smoking and alcohol abstinence/cessation, if applicable Heart Failure Education Booklet: information given previously. Please Visit [email or web address] I spent a total of >35 minutes on the date of the service which included preparing to see the patient, xjiu-si-rkic patient care, completing clinical documentation, obtaining and/or reviewing separately obtained history, performing a medically appropriate examination, counseling and educating the patient/family/caregiver, and ordering medications, tests, or procedures. Adalid Clark APRN.CNP documented in this encounterFort Hamilton Hospital03-13-2025 History of Present illness Narrative* Jimbo Swanson APRN.CNS - 05/01/2024 4:08 PM EDT Noted, agree * Melissa Means RN - 05/01/2024 2:52 PM EDT patient had inr completed at [facility] patients inr is 1.1 (patients inr range [...] (05/20/24 - pt has appt w ith COLOR MATCHER also this day) for follow up INR. documented in this encounterFort Hamilton Hospital03-12-2025 History of Present illness Narrative* Nara [...] use No Scheduled procedure: TAVR Surgeon: Juvencio Saeed Scheduled date: 05/02/2024 HPI: 78 year old [...] Arthropathy, Unspecified, Site Unspecified Elevated Liver Enzymes Janitorial Assistant Current Use of Anticoagulant Therapy Hnp (Herniated [...] factor (HCC) 03/07/2015 Dr. Hurley ([facility]) Tricuspid regurgitation PAST SURGICAL HISTORY Procedure Laterality [...] SPINE FUSN,POST INTERBODY 2012 Dr. Armando at [facility]. Diskectomy and laminectomy PAST SURGICAL HISTORY OF [...] (FLONASE) 50 mcg/actuation nasal spray Use 1 [place] in each nostril once daily. vit A,C,E-Wzhh-Knbrfo (OCUVITE PRESERVISION) 2,148 mcg-113 mg-45 mg-17.4mg tab [...] tablet daily. Medication Comments documented by Steven (Patent Prosecution Paralegal)Muna on 03/05/2018 at 0933. 03/05/18 The medications are managed by this patient by: PATIENT Muna Harris ([employer]) [facility] for senior living medications. ALLERGIES Allergen Reactions Penicillins Hives Objective [...] 03/21/24 11:36 AM Impression IMPRESSION: See result Cement Loader: KRYSTAL Transcribe Date/Time: Mar 21 2024 12:02P Dictated by : JACKELINE SCHULER MD This examination was interpreted and the report reviewed and electronically signed by: JACKELINE SCHULER MD on Mar 21 2024 12:04PM EST ECG COMPLETE Collection Time: 03/21/24 11:27 AM Impression SINUS RHYTHM WITH PREMATURE ATRIAL COMPLEXES BORDERLINE ECG Confirmed by IRA MC, ELIE ([id number]) on 03/30/2024 12:00:41 AM CTA CHEST (GATED) W IVCON Collection Time: 03/21/24 10:57 AM Impression IMPRESSION: Aortic Annulus and valve anatomy as described above Normal thoracic and abdomiinal aorta.Atherosclerotic changes as in the body of the report.Minimum luminal diameter throughout: 7 mm Cement Loader: [facility] Transcribe Date/Time: Mar 21 2024 11:22A [...] and consent discussed: yes. Patient / Responsible Constitution Party agrees to proceed: yes Patient / [...] 5:59 PM Pager/Contact #: documented in this encounterFort Hamilton Hospital03-12-2025 Instructions* Patient Instructions* Monica Aguila APRN.REGIONAL CONTROLLER - 04/30/2024 1:32 PM EDT Destinee Castañeda are scheduled for TF-TAVR on 05/02/[address] Saeed Instructed to go to [facility]1 REGISTRATION TODAY, after all appointment to [...] into surgery. - No make-up or nail guatemalan. - No jewelry, including watches, wedding rings and any body jewelry. // Questions about preparing for your procedure? Call your doctors office: Dr. Orlin Meyer [phone] Dr. Gallito Cortez [phone] Dr. Jason Olea [phone] Dr. Juvencio Saeed [phone] Interventional Discharge Readiness Tool Your Anticipated Discharge Needs: If you are discharged the same day -You must have accommodations in [place] (if you live over 2 hours away) [...] your risk of future heart problems. For [facility] Cardiac Rehab call [phone] to schedule after you are home from your procedure. If you do not receive your referral, please call your oil well service unit operator's office for the order. It was nice to see you again, I wish you the best. Kindly, Monica Aguila APRN.SANTY documented in this encounterFort Hamilton Hospital03-12-2025 History of Present illness Narrative* Monica Aguila APRN.CNP - 04/30/2024 1:00 PM EDT Images from the original note were not included. [facility] Department of Cardiovascular Medicine SECTION OF INTERVENTIONAL CARDIOLOGY OUTPATIENT VISIT DATE April 30, 2024 OUTPATIENT VISIT TYPE ESTABLISHED FOLLOW UP Primary Porcelain Buildup Assistant: Dr. Saeed Chief Complaint: Patient here for cardiac follow up evaluation History of Present Illness: Patient is a 78 year old female who presents for follow up visit today. Patient was here with a couple from her baptism. She lives at home alone and is [...] no Dental clearance: Completed and scanned in [facility] PPM: No Anticoagulation: Coumadin- Last dose taken [...] into surgery. - No make-up or nail guatemalan. - No jewelry, including watches, wedding rings and any body jewelry. // Questions about preparing for your procedure? Call your doctors office: Dr. Orlin Meyer [phone] Dr. Gallito Cortez [phone] Dr. Jason Olea [phone] Dr. Juvencio Saeed [phone] Interventional Discharge Readiness Tool Your Anticipated Discharge Needs: If you are discharged the same day -You must have accommodations in [place] (if you live over 2 hours away) [...] your risk of future heart problems. For [facility] call [phone] to schedule after you are home from your procedure. If you do not receive your referral, please call your oil well service unit operator's office for the order. I spent a total of 35 minutes on the date of the service which included preparing to see the patient, bzrj-aw-xmia patient care, completing clinical documentation, obtaining and/or reviewing separately obtained history, performing a medically appropriate examination, counseling and educating the pat ient/family/caregiver, and communicating results to the patient/family/caregiver. Monica Aguila APRN.REGIONAL CONTROLLER documented in this encounterFort Hamilton Hospital03-12-2025 History of Present illness Narrative* Ursula [...] PATIENT PRESENTS WITH AN IMPLANTABLE OR ATTACHED TAPE CALENDER: No RADIOLOGY DEPARTMENT: General X-ray: Exam(s) Completed: Chest X-Ray PERIPHERAL IV DATA: Not applicable SIGNED BY: RT Leslie(Ade) April 30, 2024 11:27 AM documented in this encounterFort Hamilton Hospital03-03-2025 History of Present illness Narrative* Geno Hart MD - 04/21/2024 11:00 AM EST Patient presents with: Disseminated histoplasmosis : Recurrent due to immunosuppression HPI: 78-year-old woman with 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 This recurrence was found as it was starting to be worked up by her aquatics specialist in February 2023 and we started therapy again when she was transferred to [facility] Due to massive hemoptysis found out to be COVID-positive. She was treated with remdesivir and dexamethasone and then put back on itraconazole March 19 for her histoplasma recurrence. She had previous disseminated histoplasmosis [facility] Currently doing [...] be getting a TAVR next week at [facility] due to aortic valve problems. Her [...] COVID-19 original vaccine, age 12+ yr, monovalent (PFIZER-NokoriNTECH - ARIAS TOP) 07/11/2021 COVID-19 original vaccine, age 12+ yr, monovalent (Differential-BIONTECH - PURPLE TOP) 04/22/2020 05/13/2020 11/09/2020 11/21/2020 [...] (FLONASE) 50 mcg/actuation nasal spray Use 1 [place] in each nostril once daily. 3 Each 3 vit A,C,Q-Phde-Tyusnv (OCUVITE PRESERVISION) 2,148 mcg-113 mg-45 mg-17.4mg tab [...] factor (HCC) 03/07/2015 Dr. Hurley ([facility]) Tricuspid regurgitation PAST SURGICAL HISTORY Procedure Laterality [...] SPINE FUSN,POST INTERBODY 2011 Dr. Armando at [facility]. Diskectomy and laminectomy PAST SURGICAL HISTORY OF 03/07/1999 removal facial lesion PAST SURGICAL HISTORY OF 08/17/2014 excision soft tissue mass left index finger TONSILLECTOMY PRIMARY/SECONDARY <AGE 12 TRANSCATH RETRIEVAL,PERCUT 12/28/2006 ACTIVE PROBLEM LIST Esophageal Reflux Meralgia Paresthetica Other Voice and Resonance Disorders Arthropathy, Unspecified, Site Unspecified Elevated Liver Enzymes Janitorial Assistant Current Use of Anticoagulant Therapy Hnp (Herniated [...] 6 months (around 10/22/2024). documented in this encounterFort Hamilton Hospital02-26-2025 History of Present illness Narrative* Leandra Venegas APRN.CNS - 04/16/2024 9:13 AM EST Images from the original note were not included. documented in this encounterFort Hamilton Hospital02-25-2025 History of Present illness Narrative* Leandra [...] with her local dentist. Jasmyn Esposito Mar[facility] [place] [phone] Pacemaker evaluation: N/A Shante, Please schedule Haydee Bustamante [phone] for COMMERCIAL TF- TAVR ( CARLYN) Procedure on: Thursday May 02, 2024 Lab/CXR/EKG Appointment: SundayApril 30 Please schedule STRUCTURAL VALVE CLINIC Visit on: SundayApril 30 Date of J4-1 Anesthesia only: SundayApril [address] lab schedule on : Thursday May 02, 2024 at 8:30 AM CPT Code: 06404 Diagnosis Code: I35.0 PART TIME: Dr. Saeed Performing Physician: Dr. Saeed OR: 81 Surgeon: Dr. Francis Please schedule bed reservation for post procedure-(should be a TCI) EVAN schedule- intra/op Patient also needs INSURANCE PRECERTIFICATION ADL SCORE___6 SURVIVAL RATE GREATER THAN 1 YEAR____Y___(LOOKING FOR A YES) EF ___N__(GREATER THAN 50%) Thank you. Leandra Venegas APRN.CNS Request sent to scheduling. documented in this encounterFort Hamilton Hospital02-25-2025 Telephone encounter Note * Telephone Encounter - Leandra Venegas APRN.CNS - 04/15/2024 12:12 PM EST Tried to call patient to schedule TAVR procedure. Left message for her to call the office. Leandra Venegas APRN.CNS [facility] Miscellaneous Notes* Telephone Encounter - Leandra Venegas APRN.CNS - 04/15/2024 12:12 PM EST Tried to call patient to schedule TAVR procedure. Left message for her to call the office. 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[facility] [employer] and she has a goal to get [...] were you homeless or living in a correction (including now)?: No Transportation Needs In the [...] have money to get more.: Never true [facility] In the past 12 months has the [employer], gas, oil, or water company threatened to [...] Contact Your Physician Team Disposition Based on pc installation engineer, the following disposition is advised: No action needed Pili Benitez RN April 14, 2024 4:01 PM documented in this encounterFort Hamilton Hospital02-15-2025 History of Present illness Narrative* Juvencio Saeed MD - 04/05/2024 4:01 PM EST Interventional Cardiology Staff Note Dr. Saeed receives payments from several device companies for educational activities, advisory boardduties, consulting, and/or proctoring. The companies include: [employer], [employer], and [employer]. A product by [employer], [employer], [employer], or a competitor, may be used in this patient's care. Dr. Saeed does not receive any money for products he or any other [facility] physicians prescribe or use. Dr. Saeed's choice on which product used in this patient's case is or was not influenced by his relationship with any company. Dr. Saeed selected the product that in his hands is believed to be the best option for this patient's treatment. This was discussed with the patient. Juvencio Saeed MD, MSc documented in this encounterFort Hamilton Hospital02-14-2025 History of Present illness Narrative* Tracey Heller APRN.CNP - 04/04/2024 6:21 AM EST Bay Heller APRN.SANTY * Melissa Means RN - 04/03/2024 1:48 PM EST patient had inr completed at [facility] patients inr is 1.7 (patients inr [...] for follow up INR. documented in this encounterFort Hamilton Hospital02-13-2025 Telephone encounter Note * Telephone Encounter [...] a TAVR. Alisa Allen RN, BSN Nurse Strategic Partner Development Manager for Dr. Bartolome rFancis [facility]02-13-2025 Miscellaneous Notes* Telephone Encounter - Alisa Allen RN - 04/03/2024 7:35 AM EST TAVR Meeting on March 31 showed the following recommendation: Outcome: Hyadee Bustamante history and imaging were reviewed by [...] a TAVR. Alisa Allen RN, BSN Nurse Strategic Partner Development Manager for Dr. Bartolome Francis * Telephone Encounter - Karen Nunez - 04/02/2024 1:44 PM EST Images from the original note were not included. LOCAL PATIENT Received [place] Email from Dr. Christophe Bustamante is being referred to Bartolome Francis M.D. by Juvencio Saeed [id number] [place] [facility] [id number] Patient diagnosis/Reason for consult: Aortic Valve Stenosis; Chronic Heart Failure Referral triage process explained: N/A Patient will receive a call from Cardiac NPM after triage review with surgeon to discuss any additional testing and/or consults that will be scheduled. Pt will then receive a call from our scheduling office for scheduling. Please call pt at [phone]. Patient Registration: Registration complete/updated: yes Insurance card(s) scanned in [facility] with in the past year: Yes: Date: 10/18/2023 Pt's [employer] is active. Ok to communicate to pt via Belanit not asked Medical Records: Records in [facility] (internal CC records): Yes Imaging in [facility] (internal CC records): Yes Care Everywhere - queried yes, downloaded Yes Linked Outside Organizations (list): Additional providers added to Care Teams: Yes Additional Notes/Comments: Internal Referral Enct routed to: Yes, Cardiac NPM for triage Karen Nunez documented in this encounterFort Hamilton Hospital02-12-2025 Telephone encounter Note * Telephone Encounter - Karen Nunez - 04/02/2024 1:44 PM EST Images from the original note were not included. LOCAL PATIENT Received [place] Email from Dr. Christophe Bustamante is being referred to Bartolome Francis M.D. by Juvencio Saeed [address] [facility] [address] Patient diagnosis/Reason for consult: Aortic Valve Stenosis; Chronic Heart Failure Referral triage process explained: N/A Patient will receive a call from Cardiac NPM after triage review with surgeon to discuss any additional testing and/or consults that will be scheduled. Pt will then receive a call from our scheduling office for scheduling. Please call pt at [phone]. Patient Registration: Registration complete/updated: yes Insurance card(s) scanned in [employer] with in the past year: Yes: Date: 10/18/2023 Pt's [employer] is active. Ok to communicate to pt via [employer] not asked Medical Records: Records in [facility] (internal CC records): Yes Imaging in [facility] (internal CC records): Yes Care Everywhere - queried yes, downloaded Yes Linked Outside Organizations (list): Additional providers added to Care Teams: Yes Additional Notes/Comments: Internal Referral Enct routed to: Yes, Cardiac NPM for triage Karen Nunez [facility]02-12[facility] Telephone encounter Note* Telephone Encounter - David Hoffmann - 04/02/2024 9:16 AM EST IN [facility] Work Phone: [phone] Miscellaneous Notes* Telephone Encounter - David Hoffmann - 04/02/2024 9:16 AM EST IN * Telephone Encounter - Karen Nunez - 04/01/2024 4:53 PM EST Insurance Card(s) scanned into [employer] Please register/advise Thank You! documented in this encounterFort Hamilton Hospital02-11-2025 Telephone encounter Note * Telephone Encounter - Karen Nunez - 04/01/2024 4:53 PM EST Insurance Card(s) scanned into [employer] Please register/advise Thank You! [facility]02-10[facility] History of Present illness Narrative* Estefania Ervin APRN.CNP - 03/31/2024 12:02 PM EST [facility] [place] [facility] Department of Cardiovascular Medicine SECTION OF INTERVENTIONAL CARDIOLOGY Date March 31, 2024 MULTI DISCIPLINARY TAVR TEAM MEETING [employer] Teams Meeting Team members: Dr. Cortez, Dr. Meyer, Dr. Saede, Dr. Olea, Dr. Macdonald, Dr. Francis, Dr. [...] be handled by: CVM coordinator Estefania Ervin APRN.REGIONAL CONTROLLER documented in this encounterFort Hamilton Hospital02-10-2025 History of Present illness Narrative* Yu [...] 31, 2024 10:42 AM documented in this encounterFort Hamilton Hospital02-05-2025 History of Present illness Narrative* Yu [...] 26, 2024 9:38 AM documented in this encounterFort Hamilton Hospital02-04-2025 History of Present illness Narrative* Bartolome Francis MD - 03/25/2024 3:45 PM EST Images from the original note were not included. [facility] [place] DEPARTMENT OF CARDIAC SURGERY OUTPATIENT VISIT DATE March 25, 2024 OUTPATIENT VISIT SERVICE DATE: 03/25/2024 SERVICE TIME: 3:45 PM PCP: Claudine Durán [address] [place] [address] Referring Physician: Monica Aguila [address] [place] [facility] [id number] Patient Type: Consult Visit to determine Surgery: [...] the report.Minimum luminal diameter throughout: 7 mm Cement Loader: [facility] Transcribe Date/Time: Mar 21 2024 11:22A [...] record Bartolome Francis MD documented in this encounterFort Hamilton Hospital02-04-2025 Instructions* Patient Instructions* Monica Aguila APRN.REGIONAL CONTROLLER - 03/25/2024 11:06 AM EST Haydee- I [...] your risk of future heart problems. For [facility] call [phone] to schedule after you are home from your procedure. If you do not receive your referral, please call your oil well service unit operator's office for the order. We also discussed [...] Kindly, Monica Aguila APRN.SANTY documented in this encounterFort Hamilton Hospital02-04-2025 History of Present illness Narrative* Monica Aguila APRN.CNP - 03/25/2024 11:00 AM EST Images from the original note were not included. [facility] [place] [facility] Department of Cardiovascular Medicine SECTION OF INTERVENTIONAL CARDIOLOGY OUTPATIENT VISIT DATE March 25, 2024 OUTPATIENT VISIT TYPE ESTABLISHED FOLLOW UP Primary Porcelain Buildup Assistant: Dr. Saeed Chief Complaint: Patient here for [...] I have personally reviewed the above testing. [place] CARDIOMYOPATHY QUESTIONNAIRE (KCCQ-12) Activity: A. Showering/bathing: Extremely [...] for other reasons. 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 For [facility] call [phone] to schedule after you are home from your procedure. If you do not receive your referral, please call your oil well service unit operator's office for the order. We also discussed [...] which included preparing to see the patient, gbiz-ea-pert patient care, completing clinical documentation, obtaining and/or reviewing separately obtained history, counseling and educating the patient/family/caregiver, independently interpretin g results (not separately reported), and communicating results to the patient/family/caregiver. Monica Aguila APRN.CNP documented in this encounterFort Hamilton Hospital02-04-2025 History of Present illness Narrative* Chacho Anaya RRT - 03/25/2024 9:43 AM EST PULM FUNCTION: Provider: Monica Aguila APRN.CNP Spirometry: 1 DLCO: 1 J- LAB # 1 - PFT documented in this encounterFort Hamilton Hospital02-04-2025 History of Present illness Narrative* Ken [...] PATIENT PRESENTS WITH AN IMPLANTABLE OR ATTACHED TAPE CALENDER: No CREATININE: Creatinine Date Value Ref Range [...] DIAGNOSTIC CT PERFORMED: No IV SITE: Ambulatory: IN only - direct IV injection in the Left hand POST EXAM PIV STATUS: Not applicable PROCEDURE TYPE: NM INJECT: NM CARDIAC AMYLOID SPECT. 20.8 mCi Tc99m HDP. No other medications given.. ADMINISTRATION TIME: 8:34AM PATIENT DISCHARGED TO: Ambulatory patient, left IN department area. Is this a therapy: No A Diagnostic radioactive procedure has taken place, with no further precautions necessary other than routine body substance precautions. More information regarding radiation safety can be found usingthis link: [email or web address] SIGNATURE: SABRINA Denise) PATIENT NAME: Haydee Bustamante DATE: March 25, 2024 TIME: 8:38 AM PAGER/CONTACT #: documented in this encounterFort Hamilton Hospital02-02-2025 Telephone encounter Note * Telephone Encounter [...] Caitlin Servin RN. In Department of CARDIOLOGY. [facility]02-[facility] Miscellaneous Notes* Telephone Encounter - Caitlin [...] In Department of CARDIOLOGY. documented in this encounterFort Hamilton Hospital01-31-2025 History of Present illness Narrative* Yu Torres MA - 03/21/2024 2:37 PM EST POPULATION HEALTH NAVIGATION OUTREACH Action/ Last OV: 02/29/2024 No upcoming appts noted. Last Wellness Exam: Unknown Patient is due for: Annual Wellness Outcome: Left VM for patient to return call to schedule appointment/address care gaps. Lingohubhart message sent. Reason for Outreach Care Gap/HCC or Scheduling Wellness Visits Care Gaps due: Medicare Annual Wellness Visit Patient Contacted: Unable or unnecessary to reach patient: Left message MyChart message sent Navigation Signature: Yu Torres MA March 21, 2024 2:37 PM documented in this encounterFort Hamilton Hospital01-31-2025 History of Present illness Narrative* Ursula [...] PATIENT PRESENTS WITH AN IMPLANTABLE OR ATTACHED TAPE CALENDER: No RADIOLOGY DEPARTMENT: General X-ray: Exam(s) Completed: Chest X-Ray PERIPHERAL IV DATA: Not applicable SIGNED BY: RT Leslie(Ade) March 21, 2024 11:38 AM documented in this encounterFort Hamilton Hospital01-31-2025 History of Present illness Narrative* Candace [...] PATIENT PRESENTS WITH AN IMPLANTABLE OR ATTACHED TAPE CALENDER: No RADIOLOGY DEPARTMENT: CT; Exam(s) Completed: Cardiac PERIPHERAL IV DATA: Site assessment: Clean,Dry and Intact, Site disposition Discontinued SIGNED BY: RT Clark(R) March 21, 2024 10:53 AM documented in this encounterFort Hamilton Hospital01-31-2025 History of Present illness Narrative* Juvencio Saeed MD - 03/21/2024 9:30 AM EST [facility] [place] [facility] Department of Cardiovascular Medicine SECTION OF INTERVENTIONAL CARDIOLOGY OUTPATIENT VISIT DATE March 21, 2024 OUTPATIENT VISIT TYPE NEW PRIMARY CARE PHYSICIAN: Claudine Durán [address] [place] [address] REFERRING PHYSICIAN: No referring provider defined for [...] neighbors and friends - very active in baptism community. She denies chest pain, shortness of [...] factor (HCC) 03/07/2015 Dr. Hurley ([facility]) Tricuspid regurgitation PAST SURGICAL HISTORY Procedure Laterality [...] SPINE FUSN,POST INTERBODY 2012 Dr. Armando at [facility]. Diskectomy and laminectomy PAST SURGICAL HISTORY OF [...] fluticasone (FLONASE) 50 mcg/actuation nasal spray^Use 1 [place] in each nostril once daily.^Disp: 3 Each^Rfl: 3 vit A,C,I-Vkvv-Kkdsvk (OCUVITE PRESERVISION) 2,148 mcg-113 mg-45 mg-17.4mg tab^Take [...] CTS assessment. [facility] I personally interviewed, confirmed and edited the above information as obtained by others. Juvencio Saeed M.D., M.Sc., F.A.C.C., F.S.C.A.I. Staff, Interventional Cardiology [facility] Desk -3, [address] [place] [address] Office , toll-free [phone], [phone] Office Appointments: [phone], toll-free [phone], [phone] documented in this encounterFort Hamilton Hospital01-10-2025 Instructions* Patient Instructions* Claudine Durán MD - 02/29/2024 5:43 PM EST .aisavs documented in this encounterFort Hamilton Hospital01-10-2025 History of Present illness Narrative* Claudine Durán MD - 02/29/2024 5:23 PM EST This note was created using [employer]. Subjective Haydee Bustamante is a 78 year [...] on the of next month at the [facility]. She also has mitral valve issues, noting [...] and was restarted on methotrexate by her drop hammer set up operator, Dr. Jane Montoya. She was also prescribed [...] flu vaccines on the same day at [facility]. She reports some anxiety related to her upcoming surgery and recent life events, including a changein her email and bank account. She has a support system in place, including a friend who will accompany her to appointments and a medical power of nutrition tech. She has advanced directives on file. She denies severe depression but reports being in a bad mood recently due to stress from her responsibilities with the [employer]. PAST MEDICAL HISTORY Diagnosis Date Anemia Bone marrow involvement with histoplasmosis Bronchiectasis ([facility]) COPD (chronic obstructive pulmonary disease) ([facility]) Disseminated histoplasmosis Colitis, immunosuppression, 01/2018. Diverticulosis of colon (without mention of hemorrhage) Diverticulosis DVT, recurrent, lower extremity, acute ([facility]) 12/10/2014 Esophageal reflux Hiatal hernia 02/25/2018 Hypertension Lung nodule Personal history of unspecified urinary disorder 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 rheumatoid factor ([facility]) 03/07/2015 Dr. Hurley ([facility]) Unspecified hemorrhoids without mention of complication [...] (FLONASE) 50 mcg/actuation nasal spray Use 1 [place] in each nostril once daily. vit A,C,M-Cuug-Xrsvjr (OCUVITE PRESERVISION) 2,148 mcg-113 mg-45 mg-17.4mg tab [...] heart failure with preserved ejection fraction (HFpEF) ([facility]) (I50.32) # Nonrheumatic aortic valve stenosis (I35.0) - Scheduled for TAVR on the of next month at the [facility]. - Reports significant heart murmur audible during auscultation. - No current edema noted; Lasix on hold. - Spironolactone therapy discontinued. - Follow-up with cardiology on the of this month. # Rheumatoid arthritis with positive rheumatoid factor, involving unspecified site ([facility]) (M05.9) - Under management by Dr. Jane Montoya at [facility]. - Resumed methotrexate and initiated sulfasalazine 2 tablets twice daily; significant improvement in pain and stiffness reported. - Recent corticosteroid injection provided additional relief. - Humira therapy currently discontinued. # COPD without exacerbation ([facility]) (J44.9) # Bronchiectasis without complication ([facility]) (J47.9) - Conditions are stable; no exacerbations reported. - Cleared for upcoming TAVR procedure. # Screening for depression (Z13.31) # Encounter for screening examination for other mental health and behavioral disorders (Z13.39) - Depression screening completed; no severe depression noted. - Mild anxiety related to upcoming surgery; no pharmacological or counseling interventions requiredat this time. Claudine Durán MD documented in this encounterFort Hamilton Hospital01-10-2025 History of Present illness Narrative* Melissa Means RN - 02/29/2024 3:45 PM EST patient had inr completed at [facility] patients inr is 2.0 (patients inr [...] for follow up INR. documented in this encounterFort Hamilton Hospital01-02-2025 Telephone encounter Note * Telephone Encounter [...] Please review and advise. Jannet Aldana RN [facility] Work Phone: 1(414) 715-807601-02-2025 Miscellaneous Notes* Telephone Encounter - Jannet Aldana [...] advise. Jannet Aldana, RN documented in this encounterFort Hamilton Hospital12-12-2024 History of Present illness Narrative* Jimbo Swanson APRN.CNS - 01/31/2024 4:15 PM EST Continue with Coumadin dose unchanged and check INR in 4 weeks * Melissa Means RN - 01/31/2024 2:06 PM EST patient had inr completed at [facility] patients inr is 1.9 (patients inr rnage [...] for follow up INR. documented in this encounterFort Hamilton Hospital12-10-2024 History of Present illness Narrative* Ilda Miller RN - 01/29/2024 2:57 PM EST [facility] Telephonic Outreach Provider Candelaria/SHAYNE N/A 2nd [...] more often than normal? No Based on pc installation engineer, the following disposition is advised: No symptoms or symptoms present, not severe. Routed to: No Action Needed PAN Education Provided this Outreach: No Appointments for Next 60 Days Date Time Provider Location Dept Phone 01/31/2024 10:30 AM ANGELACHRISTINA [facility] [phone] 02/29/2024 3:40 PM CLAUDINE DURÁN [facility] [phone] Ilda Miller RN January 29, 2024 3:01 [...] goal align with programs offered at the [facility]? No Patient accepts telephonic outreach. PAN [...] stressful. Can we connect you with a [facility] Dental Equipment Installer And Servicer to find a program that could help you meet your goals? No Falls completed:Yes ADL's updated: Yes Ilda Miller RN January 29, 2024 3:32 PM documented in this encounterFort Hamilton Hospital12-02-2024 History of Present illness Narrative* Ilda Miller RN - 01/21/2024 1:25 PM EST [facility] Telephonic Outreach Provider Action/FYI N/A Contacted for: Routine Telephonic Outreach Contact made with patient: No, left message. Ilda Mliler RN January 21, 2024 1:28 PM Goals/Falls/ADL Update Contact made with patient: No, left message. Ilda Miller RN January 21, 2024 1:28 PM documented in this encounterFort Hamilton Hospital11-21-2024 History of Present illness Narrative* Jimbo Swanson APRN.ROCKBOARD LATHER - 01/10/2024 12:45 PM EST Coumadin 6mg and Sunday and 5mg all other days and recheck in 3 weeks due to the cc is closed at the 2 week jasmyn * Melissa Means RN - 01/10/2024 12:39 PM EST patient had inr completed at [facility] patients inr is 1.5 [...] not agree with recommendation documented in this encounterFort Hamilton Hospital11-19-2024 Note* Addendum Note - Monica Aguila APRN.REGIONAL CONTROLLER - 01/08/2024 4:18 PM ESTAddended by: MONICA AGUILA on: 01/08/2024 04:18 PM Modules accepted: Orders [facility]11-19-2024 Miscellaneous Notes* Addendum Note - Monica Mccormick APRN.CNP - 01/08/2024 4:18 PM ESTAddended by: MONICA MCCORMICK on: 01/08/2024 04:18 PM Modules accepted: Orders documented in this encounterFort Hamilton Hospital11-19-2024 History of Present illness Narrative* Monica Aguila APRN.CNP - 01/08/2024 9:30 AM EST TAVR STRUCTURAL REVIEW FORM Orders placed by: Dr. Drew on 01/02/2024 Records Reviewed: 01/08/2024 Appt request sent: 01/08/2024 Records in [facility] have been reviewed. Severe . Request has been sent to the energy specialist who will arrange an appointment schedule. Please [...] greater, then it should be by an Rifle Case Repairer ONLY (Dr. Cota, , Dr. Olea, Dr. Cortez, Dr. Meyer, Dr. Beavers, Dr. Jackson,Dr. Gillespie, Dr. Rosa, Dr. Dunn, Dr. Painter and Dr. West) DAY THREE: Nuclear Medicine- Amyloid SPECT Structural Valve Clinic appointment PFT s (spirometry, diffusing capacity) Patient is also to be seen by Dr. Francis/Dr. Macdonald/Dr. Costa/Dr. Silverio/ Dr. Delgado/Dr. Gonzalez/Dr. Arreaga/Dr. Luu/ Dr. Manzanares/ Dr. Gan/Dr. Anjali Aguila APRN.REGIONAL CONTROLLER documented in this encounterFort Hamilton Hospital11-15-2024 Telephone encounter Note * Telephone Encounter [...] Hart MD 01/04/2024 2:33 PM pgr [id number] [facility]11-15-2024 Miscellaneous Notes* Telephone Encounter - Geno [...] 2:33 PM pgr [id number] documented in this encounterFort Hamilton Hospital11-13-2024 History of Present illness Narrative* Ines Drew MD - 01/02/2024 9:45 AM EST Images from the original note were not included. [facility] [place] [facility] Department of Cardiovascular Medicine SECTION [...] 2019 with steadily rising gradients referred to [facility] for intervention -Followed by Dr. Hart from [place] for histoplasmosis, recent labs 12/19 show histo antigen negative -Followed by Dr. Msesina from [facility] cardiology for and pericardial effusion last seen 08/27/23, then by Raji ROSALES 10/18/23 - awaiting evaluation for aortic valve intervention. Referred to [facility] for further management. Patient reports at baseline she is very limited due to joint pain in hands, wrists "everywhere" since being off RA treatment for histo. She uses cane in clinic today - seen in wheelchair. Reports at baseline lives at home alone with help from neighbors and friends - very active in baptism community.No family close by. No reported cardiac [...] hemorrhage) Diverticulosis DVT, recurrent, lower extremity, acute ([facility]) 12/10/2014 Esophageal reflux Hiatal hernia 02/25/2018 Hypertension Lung nodule Personal history of unspecified urinary disorder 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 rheumatoid factor ([facility]) 03/07/2015 Dr. Hurley ([facility]) Unspecified hemorrhoids without mention of complication [...] SPINE FUSN,POST INTERBODY 2012 Dr. Armando at [facility]. Diskectomy and laminectomy PAST SURGICAL HISTORY OF [...] (FLONASE) 50 mcg/actuation nasal spray Use 1 [place] in each nostril once daily. pantoprazole DR (PROTONIX) 40 mg tablet Take 1 tablet by mouth once daily. vit A,C,V-Suef-Lgfleq (OCUVITE PRESERVISION) 2,148 mcg-113 mg-45 mg-17.4mg tab [...] We recommend a follow-up with TAVR clinic. [facility] STAFF PHYSICIAN NOTE OF PERSONAL INVOLVEMENT IN [...] of Cardiovascular Medicine [facility] [place] [facility] Desk J1-[address] [place] [address] Office - [phone] extension [phone] Office E-mail: [email or web address] Appointments: [phone] extension [phone] documented in this encounterFort Hamilton Hospital11-07-2024 History of Present illness Narrative* Jimbo [...] not agree with recommendation documented in this encounterFort Hamilton Hospital10-31-2024 History of Present illness Narrative* Rosa Wallace RN - 12/20/2023 11:22 AM EDT [facility] Telephonic Outreach Provider Action/FYI Contacted for: Engagement Contact made with patient: Yes Patient identified by name and date of . Discussed care with patient Outcomes: Patient switched from [facility] to telephone outreach Are you experiencing any new or worsening symptoms you need to talk about today? No Based on pc installation engineer, the following disposition is advised: No symptoms or symptoms present, not severe. Routed to: No Action Needed PAN Education Provided this Outreach: No Rosa Wallace RN December 20, 2023 11:29 AM documented in this encounterFort Hamilton Hospital10-31-2024 Telephone encounter Note * Telephone Encounter - Jimbo Swanson APRN.CNS - 12/20/2023 7:12 AM EDT ok [facility]10-31-20[facility] Miscellaneous Notes* Telephone Encounter - Jimbo [...] and send to pharmacy. documented in this encounterFort Hamilton Hospital10-30-2024 History of Present illness Narrative* Rosa Wallace RN - 12/19/2023 3:54 PM EDT [facility] Telephonic Outreach Provider Candelaria/SHAYNE Contacted for: Engagement Contact made with patient: No, left message. Rosa Wallace RN December 19, 2023 3:57 PM documented in this encounterFort Hamilton Hospital10-30-2024 Telephone encounter Note * Telephone Encounter [...] Please update prescription and send to pharmacy. [facility]10[facility] History of Present illness Narrative* Geno Hart MD - 12/18/2023 11:00 AM EDT Patient presents with: Disseminated histoplasmosis : Follow-up on itraconazole HPI: 78-year-old woman immunosuppressed due to rheumatoid arthritis on Biologics, COPD with bronchiectasis, previously treated by [facility] for disseminated histoplasmosis and did well. In February 2023 was transferred here from [facility] with massive hemoptysis found out to [...] relatively normal. She still active with her baptism and at meetings and professional organizations and [...] (FLONASE) 50 mcg/actuation nasal spray Use 1 [place] in each nostril once daily. [address] (PROTONIX) 40 mg tablet Take 1 tablet by mouth once daily. 90 tablet 3 vit A,C,B-Exwf-Sbxltn (OCUVITE PRESERVISION) 2,148 mcg-113 mg-45 mg-17.4mg tab [...] hemorrhage) Diverticulosis DVT, recurrent, lower extremity, acute ([facility]) 12/10/2014 Esophageal reflux Hiatal hernia 02/25/2018 Hypertension Lung nodule Personal history of unspecified urinary disorder 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 rheumatoid factor ([facility]) 03/07/2015 Dr. Hurley ([facility]) Unspecified hemorrhoids without mention of complication [...] SPINE FUSN,POST INTERBODY 2012 Dr. Armando at [facility]. Diskectomy and laminectomy PAST SURGICAL HISTORY OF 03/07/1999 removal facial lesion PAST SURGICAL HISTORY OF 08/17/2014 excision soft tissue mass left index finger TONSILLECTOMY PRIMARY/SECONDARY <AGE 12 TRANSCATH RETRIEVAL,PERCUT 12/28/2006 ACTIVE PROBLEM LIST Esophageal Reflux Meralgia Paresthetica Other Voice and Resonance Disorders Arthropathy, Unspecified, Site Unspecified Elevated Liver Enzymes Fpc Current Use of Anticoagulant Therapy Hnp (Herniated [...] reports reviewed. Great deal of time spent wqst-[id number] with the patient mostly in discussion Return in about 4 months (around 04/18/2024). documented in this encounterFort Hamilton Hospital10-24-2024 History of Present illness Narrative* Jimbo Swanson APRN.ROCKBOARD LATHER - 12/13/2023 4:22 PM EDT Coumadin 6 mg and 5 mg all other days and check INR in 2 weeks. * Melissa Means RN - 12/13/2023 1:17 PM EDT patient had inr completed at [facility] patients inr is 1.4 (patients inr [...] an rx for 1mg coumadin sent to [facility] (rx has been pended for approval) please review and advise on recommendation patient only needs called if provider does not agree with recommendation documented in this encounterFort [facility] Hospital10-22-[facility]24 Telephone encounter Note * Telephone Encounter [...] Mann LPN December 11, 2023 3:42 PM [facility]10-[facility] Miscellaneous Notes* Telephone Encounter - Lynne [...] 11, 2023 3:42 PM documented in this encounterFort Hamilton Hospital10-10-2024 History of Present illness Narrative* Jimbo Swanson APRN.CNS - 11/29/2023 3:00 PM EDT Coumadin 5 mg daily and check INR in 2 weeks * Melissa Means RN - 11/29/2023 12:35 PM EDT patient had inr completed at [facility] patients inr is 2.3 (patients inr [...] not agree with recommendation documented in this encounterFort Hamilton Hospital10-07-2024 Telephone encounter Note * Telephone Encounter - Jannet Aldana RN - 11/26/2023 2:38 PM EDT Patient cannot come in this week, she has been rescheduled to 12-17. Jannet Aldana RN [facility] Work Phone: [phone] 496-154610-07-2024 Miscellaneous Notes* Telephone Encounter - Jannet Aldana [...] 11/26/2023 10:38 AM EDT Labs received from [facility] that will be scanned. They recommended a follow up with ID due toCRP 7.8 mg/dL and ESR 93 mm/hr. Patient is scheduled on 01-08-24. Should her appointment be scheduled sooner? Thank you, Jannet Aldana RN documented in this encounterFort Hamilton Hospital10-07-2024 Telephone encounter Note * Telephone Encounter - Jannet Aldana RN - 11/26/2023 1:07 PM EDT Voicemail left for patient to return call. Jnanet Aldana RN [facility]10-07-2024 Telephone encounter Note* Telephone Encounter - [...] My office week around December 16December 20. [facility] Work Phone: [phone] Telephone encounter Note* Telephone Encounter - Jannet Aldana RN - 11/26/2023 10:38 AM EDT Labs received from [facility] that will be scanned. They recommended a follow up with ID due toCRP 7.8 mg/dL and ESR 93 mm/hr. Patient is scheduled on 01-08-24. Should her appointment be scheduled sooner? Thank you, Jannet Aldana, RN [facility]09-26-2024 Telephone encounter Note* Telephone Encounter - Jimbo Swanson APRN.CNS - 11/15/2023 4:53 PM EDT ok [facility]09-26-[facility] Miscellaneous Notes* Telephone Encounter - Jimbo [...] can not be approved. documented in this encounterFort Hamilton Hospital09-26-2024 Telephone encounter Note * Telephone Encounter - Melissa Means RN - 11/15/2023 12:26 PM EDT patients orders for coumadin clinic inr's has at this time. new order has been pended for approval if possible so that patient can continue to get inr's completed thru the coumadin clinic. coumadin clinic nurse only needs called if order can not be approved. [facility] History of Present illness Narrative* Melissa Means RN - 11/15/2023 12:24 PM EDT patient had inr completed at [facility] patients inr is 2.1 (patients inr [...] reading since dose change documented in this encounterFort Hamilton Hospital09-19-2024 History of Present illness Narrative* Melissa Means RN - 11/08/2023 4:20 PM EDT pcp agrees with information * Melissa Means RN - 11/08/2023 2:00 PM EDT patient had inr completed at [facility] patients inr is 2.8 (patients inr range [...] not agree with recommendation documented in this encounterFort Hamilton Hospital09-16-2024 Telephone encounter Note * Telephone Encounter - Claudine Durán MD - 11/05/2023 4:53 PM EDT The following approved medication requests have been transmitted electronically. Requested Prescriptions Pending Prescriptions Disp Refills itraconazole (SPORANOX) 10 mg/mL solution 1200 mL 0 Sig: Take 20 mL by mouth two times a day. Claudine Durán MD [facility]09-16-2024 Miscellaneous Notes* Telephone Encounter - Claudine [...] day. ALLERGIES Allergen Reactions Penicillins Hives (home) [phone] (cell) Last Office Visit Date: 10/11/2023 Last [facility] [place] [facility] Visit: Visit date not found Future Appointment: 02/29/2024 The patients preferred pharmacy has been captured for this encounter? yes Request is for script(s) to be escript to pharmacy. Yessica Pelayo LPN documented in this encounterFort Hamilton Hospital09-16-2024 Telephone encounter Note * Telephone Encounter - Yessica Pelayo LPN - 11/05/2023 11:28 AM EDT Patient MyChart message requesting the following refill Refill(s) Requested: Requested Prescriptions Pending Prescriptions Disp Refills itraconazole (SPORANOX) 10 mg/mL solution 1200 mL 0 Sig: Take 20 mL by mouth two times a day. ALLERGIES Allergen Reactions Penicillins Hives (home) [phone] (cell) Last Office Visit Date: 10/11/2023 Last [facility] [place] [facility] Visit: Visit date not found Future Appointment: 02/29/2024 The patients preferred pharmacy has been captured for this encounter? yes Request is for script(s) to be escript to pharmacy. Yessica Pelayo LPN [facility]09-10-[facility] Telephone encounter Note* Telephone Encounter - Ashley Rahman MA - 10/30/2023 2:51 PM EDT Forms were successfully faxed to [phone] to [facility]. Form placed in PSS basket for scanning. [facility]09-10-[facility] Miscellaneous Notes* Telephone Encounter - Ashley Rahman MA - 10/30/2023 2:51 PM EDT Forms were successfully faxed to [phone] to [facility]. Form placed in PSS basket for scanning. documented in this encounterFort Hamilton Hospital09-06-2024 History of Present illness Narrative* Yesenia Weinstein LPN - 10/26/2023 3:59 PM EDT Patient was given coumadin instructions and verbalized understanding. * Jimbo Swanson APRN.ROCKBOARD LATHER - 10/25/2023 3:30 PM EDT Recommend Coumadin 7.5 Sunday and and 5 mg all other days. Check INR in 2 weeks * Melissa Means, PAULA - 10/25/2023 12:34 PM EDT patient had inr completed at [facility] patients inr is 1.3 (patients inr range [...] not agree with recommendation documented in this encounterFort Hamilton Hospital09-04-2024 Telephone encounter Note * Telephone Encounter - Claudine Durán MD - 10/24/2023 5:14 PM EDT The following approved medication requests have been transmitted electronically. Requested Prescriptions Signed Prescriptions Disp Refills warfarin (COUMADIN) 5 mg tablet 90 tablet 3 Sig: Take 1 tablet by mouth once daily. or as directed Authorizing Provider: CLAUDINE DURÁN MD [facility]09-04-2024 Miscellaneous Notes* Telephone Encounter - Claudine [...] you. Maritza Preston LPN. documented in this encounterFort Hamilton Hospital09-03-2024 Telephone encounter Note * Telephone Encounter [...] Please advise. Thank you. Maritza Preston LPN. [facility]08-30-[facility] History of Present illness Narrative* Melissa Means RN - 10/19/2023 3:22 PM EDT pcp agrees with information * Melissa Means RN - 10/19/2023 11:54 AM EDT patient had inr completed at [facility] patients inr is 1.1 (patients inr range [...] not agree with recommendation documented in this encounterFort Hamilton Hospital08-29-2024 Instructions* Patient Instructions* Bibi Alegria APRN.CNP [...] your appointment with the valve team at [facility]. 5. Follow up with Dr. Messina in 3-4 months with echo prior documented in this encounterFort Hamilton Hospital08-29-2024 History of Present illness Narrative* Bibi Alegria APRN.CNP - 10/18/2023 10:00 AM EDT Images from the original note were not included. [facility] [place] [facility] Department of Cardiovascular Medicine SECTION OF CLINICAL CARDIOLOGY OUTPATIENT VISIT DATE October 18, 2023 OUTPATIENT VISIT TYPE ESTABLISHED PRIMARY CARE PHYSICIAN: Claudine Durán [address] [place] [address] CHIEF COMPLAINT: 1 month follow up HISTORY [...] who referred her to valve clinic at [facility]. She denies any chest pain, palpitations, sh [...] positive rheumatoid factor (HCC) Comment: Dr. Hurley ([facility]) No date: Unspecified hemorrhoids without mention of [...] SPINE FUSN,POST INTERBODY Comment: Dr. Armando at [facility]. Diskectomy and laminectomy 03/07/1999: PAST SURGICAL HISTORY [...] fluticasone (FLONASE) 50 mcg/actuation nasal spray^Use 1 [place] in each nostril once daily.^Disp: 3 Each^Rfl: 3 vit A,C,C-Vqov-Ikamcb (OCUVITE PRESERVISION) 2,148 mcg-113 mg-45 mg-17.4mg tab^Take [...] ECGS AVAILABLE Confirmed by MD KEESHA, MIRIAN ([id number]) on 03/29/2023 8:55:[address] Result [...] calcified granuloma middle mediastinum. Small hiatal hernia Cement Loader: PSCB Transcribe Date/Time: Sep 05 2023 12:56P [...] avoid significant preload depletion - Referred to [facility] for valve intervention by PCP - Will [...] has been referred for valve intervention at [facility] by her PCP and is scheduled to [...] should need arise. CONTACT INFORMATION: Bibi Alegria APRN.[facility] Cardiology Nurse Practitioner Section of Regional Cardiology [facility] Dept of Cardiovascular Medicine [facility] [place] [address] [place] [address] Office Office This note was partially generated using [employer] voice recognition system and may contain errors related to that system including grammar, punctuation, spelling, and words that may be inappropriate documented in this encounterFort Hamilton Hospital08-28-2024 History of Present illness Narrative* Ilda Miller RN - 10/17/2023 3:43 PM EDT [facility] Telephonic Outreach Provider Action/SHAYNE N/A Contacted for: Engagement Last questionnaire completed: 08/31/23 My Chart reminder letter sent 10/02/23 No response to date to My Chart questionnaire. Contact made with patient: No, left message. Ilda Miller RN October 17, 2023 3:48 PM documented in this encounterFort Hamilton Hospital08-22-2024 Instructions* Patient Instructions* Jimbo Swanson APRN.CNS - 10/11/2023 1:48 PM EDT Let us know right away if having any chest pain or feeling dizzy or like you could pass out or if you do pass out. Okay to use diclofenac gel on your knees. Try using acetaminophen hydrocodone as needed for pain of your knees. documented in this encounterFort Hamilton Hospital08-22-2024 History of Present illness Narrative* Jimbo [...] bicuspid valve, lung nodule bronchiectasis and COPD. Recruiting Internship: Florence Collins MD, for follow-up of lung nodules bronchiectasis. Manager Power: Jane Montoya MD [facility]. Not taking Humira or methotrexate due to histoplasmosis, expects treatment to be completed in December. She notes significant knee pain. Has been using ebwk-lqi-ljvppmx topical diclofenac. She was seen by Claudine Durán MD in May 2023 for follow-up appointment after [facility] after being in TCU after hospitalization. She [...] was referred for to orthopedic physician versus drop hammer set up operator for this at her earliest convenience. She was then seen by Twyla Cuevas 08/08/2023 for follow-up regarding flareup of rheumatoid arthritisand swelling of her lower legs. She was treated with prednisone tapering dose furosemide 20 mg daily x 5 days, then as needed. She was then admitted to [facility] for GI bleed July 2023. She underwent [...] fluticasone (FLONASE) 50 mcg/actuation nasal spray^Use 1 [place] in each nostril once daily.^Disp: 3 Each^Rfl: [address] (PROTONIX) 40 mg tablet^Take 1 tablet by mouth once daily.^Disp: 90 tablet^Rfl: 3 vit A,C,T-Ioer-Eveojz (OCUVITE PRESERVISION) 2,148 mcg-113 mg-45 mg-17.4mg tab^Take [...] No date: COPD (chronic obstructive pulmonary disease) ([facility]) No date: Disseminated histoplasmosis Comment: Colitis, immunosuppression, 01/2018. No date: Diverticulosis of colon (without mention of hemorrhage) Comment: Diverticulosis 12/10/2014: DVT, recurrent, lower extremity, acute (HCC) No date: Esophageal reflux 02/25/2018: Hiatal hernia No date: Hypertension No date: Lung nodule No date: Personal history of unspecified urinary disorder 03/07/2015: 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 rheumatoid factor ([facility]) Comment: Dr. Hurley ([facility]) No date: Unspecified hemorrhoids without mention of [...] with the prior echocardiographic exam performed on 09/22/2022([facility]). The mitral and aortic valve gradients are [...] - CONSULT TO CARDIOLOGY - Dr Drew [facility] 4. Gastrointestinal hemorrhage, unspecified gastrointestinal hemorrhage type [...] Level: 4 - Moderate documented in this encounterFort Hamilton Hospital08-13-2024 [facility] Medical Records Department [address] [place] [address] History Physical Exam 10/02/23 1246 MR#: [id number] Acct: [id number] Name: HAYDEE BUSTAMANTE Rep #: [id number] : 1945 78 From: Mathew Orellana DO PCP: Dr. Claudine Durán MD Status:[facility] Location: [place] [address] History and Physical Date of Admission: 10/02/23 F/U appt from ED on 08.13.23 for GI bleed. Pt states she is feeling good. Has swelling in lower extremities. Pt takes Pantoprazole 40mg, gabapentin 300mg, and suralfate 1gr. [facility] Medical History Severe aortic stenosis Thrombocytopenia Adult [...] in the morning but 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 [...] a duodenal ulcer as (more content not included)...[facility] 09-28-2023 Telephone encounter Note* Telephone Encounter - [...] mL by mouth two times a day. Yesneia Weinstein LPN September 28, 2023 10:21 AM [facility]08-09-[facility] Miscellaneous Notes* Telephone Encounter - Yesenia Wenistein LPN - 09/28/2023 10:19 AM EDT Prescription [...] 28, 2023 10:21 AM documented in this encounterFort Hamilton Hospital08-08-2024 History of Present illness Narrative* Melissa Means RN - 09/27/2023 3:36 PM EDT pcp agrees with information * Melissa Means RN - 09/27/2023 12:06 PM EDT patient had inr completed at [facility] patients inr is 1.3 (patients inr range [...] recheck after restarting it documented in this encounterFort Hamilton Hospital08-05-2024 History of Present illness Narrative* Claudine Durán MD - 09/24/2023 8:11 AM EDT This note was created using [employer] Call Communicationsriter. Subjective Haydee Bustamante is a 78 year old female. Patient presents with: Hospital F/U: [facility] ED/Hospital discharge 08/18/23 SUBJECTIVE: Haydee Bustamante [...] positive rheumatoid factor (HCC) Comment: Dr. Hurley ([facility]) No date: Unspecified hemorrhoids without mention of [...] (FLONASE) 50 mcg/actuation nasal spray Use 1 [place] in each nostril once daily. pantoprazole DR (PROTONIX) 40 mg tablet Take 1 tablet by mouth once daily. vit A,C,E-Kxuo-Ikflpk (OCUVITE PRESERVISION) 2,148 mcg-113 mg-45 mg-17.4mg tab [...] AM EDT This note was created using [employer]. Subjective Haydee Bustamante is a 78 year old female. Patient presents with: Hospital F/U: [facility] ED/Hospital discharge 08/18/23 SUBJECTIVE: Haydee Bustamante [...] factor (HCC) 03/07/2015 Dr. Hurley ([facility]) Unspecified hemorrhoids without mention of complication [...] (FLONASE) 50 mcg/actuation nasal spray Use 1 [place] in each nostril once daily. pantoprazole DR (PROTONIX) 40 mg tablet Take 1 tablet by mouth once daily. vit A,C,Q-Mzrm-Zykvme (OCUVITE PRESERVISION) 2,148 mcg-113 mg-45 mg-17.4mg tab [...] sleep. Claudine Durán MD documented in this encounterFort Hamilton Hospital08-02-2024 History of Present illness Narrative* Twyla Cuevas APRN.CNP - 09/21/2023 2:36 PM EDT Noted and agree, thank you! * Melissa Means RN - 09/21/2023 2:33 PM EDT patient had inr completed at [facility] patients inr is 2.4 (patients inr [...] not agree with recommendation documented in this encounterFort Hamilton Hospital07-17-2024 Telephone encounter Note * Telephone Encounter - Thi Zambrano OCCA - 09/05/2023 8:48 AM EDT TC to patient who is informed of providers message and is agreeable to starting spironolactone. CARMEN Viveros [facility]07-17-2024 Miscellaneous Notes* Telephone Encounter - Thi [...] save her potassium. I sent this to [facility]. * Telephone Encounter - Maritza Preston LPN [...] of breath, Patient had CBC done at [facility] yesterday. Patient does not have letter [...] taking her potassium pills. documented in this encounterFort Hamilton Hospital07-17-2024 Telephone encounter Note * Telephone Encounter - Twyla Cuevas APRN.CNP - 09/05/2023 7:18 AM EDT Okay, to help the swelling and the potassium I am going to send in spironolactone for her to start,it is a potassium sparing diuretic, it should help with the swelling but will also help save her potassium. I sent this to [facility]. [facility] Telephone encounter Note* Telephone Encounter - [...] of breath, Patient had CBC done at [facility] yesterday. Patient does not have letter for Handicapped Swathi written 08/22/2023, asking for another copy to be mailed to her. Put on nurse's counter for Dr. Durán to sign, addressed envelope ready. Maritza Preston LPN [facility]07-16-20[facility] Telephone encounter Note* Telephone Encounter - Geni Cintron LPN - 09/04/2023 4:20 PM EDT Attempted to reach patient with no answer and unable to leave a message. [facility]07-16-[facility] Telephone encounter Note* Telephone Encounter - Twyla Cuevas APRN.CNP - 09/04/2023 4:05 PM EDT Lab testing shows kidney function stable, potassium is low. Please see how often she has been taking her lasix and how often she is currently taking her potassium pills. [facility] History of Present illness Narrative* Ilda Miller RN - 08/31/2023 12:15 PM EDT [facility] Telephonic Outreach Provider Action/FYI N/A Contacted for: Engagement & SDOH screening for food insecurity and transportation -no needs identified Last questionnaire completed: 03/13/23 My Chart reminder letter sent 04/16/23, 08/07/23 Telephonic outreach: 07/05/23-left VM No response to date to My Chart questionnaire. Of note: Recent [facility] discharge 08/18/23 Contact made with patient: Yes Patient identified by name and date of . Discussed care with patient Outcomes: Patient forgot, reminder given Are you experiencing any new or worsening symptoms you need to talk about today? No Based on pc installation engineer, the following disposition is advised: No symptoms or symptoms present, not severe. Routed to: No Action Needed PAN Education Provided this Outreach: No Upcoming appointments reviewed: Appointments for Next 60 Days Date Time Provider Location Dept Phone 09/20/2023 10:00 AM ANTICOAG [facility] [phone] 09/28/2023 10:30 AM [facility] [phone] 10/11/2023 1:00 PM SWANSON JIMBO [facility] [phone] 10/18/2023 10:00 AM BIBI ALEGRI[facility] [phone] Ilda Miller RN August 31, 2023 12:38 PM documented in this encounterFort Hamilton Hospital07-12-2024 Telephone encounter Note * Telephone Encounter [...] Quintanilla LPN August 31, 2023 9:30 AM [facility]07-12-[facility] Miscellaneous Notes* Telephone Encounter - Danita [...] 31, 2023 9:30 AM documented in this encounterFort Hamilton Hospital07-11-2024 History of Present illness Narrative* Melissa Means RN - 08/30/2023 3:46 PM EDT pcp agrees with information * Melissa Means RN - 08/30/2023 1:13 PM EDT patient had inr completed at [facility] patients inr is 1.9 (patients inr [...] for follow up INR. documented in this encounterFort Hamilton Hospital07-11-2024 History of Present illness Narrative* Faviola [...] PATIENT PRESENTS WITH AN IMPLANTABLE OR ATTACHED TAPE CALENDER: No RADIOLOGY DEPARTMENT: CT; Exam(s) Completed: Chest PERIPHERAL IV DATA: Not applicable SIGNED BY: RT Maryann(R) August 30, 2023 3:28 PM documented in this encounterFort Hamilton Hospital07-09-2024 History of Present illness Narrative* Geno Hart MD - 08/28/2023 9:00 AM EDT Patient presents with: Histoplasmosis : Disseminated due to immunocompromising meds HPI: 78-year-old woman with rheumatoid arthritis on Biologics, COPD and bronchiectasis, in the past found to have recurrent disseminated histoplasmosis and [facility] with [facility] management. Went into the hospital in March transferred to [facility] from [place] for what was felt to be massive hemoptysis which did not returned case inspector to be that bad. She also had [...] She at one point went back to [place] for some type of edema that caused open sores on her legs which got treated in the hospital and became better. Currently states no fevers or chills. The prior horrible cough she had at the [facility] after hospitalization is gone. She has no wasting, appetite loss severe shortness of breath, current hemoptysis. She has no problem with her bowels except 2 weeks ago had a rectal bleed ended up seeing a director of vocational guidance in [facility] and after 3 units of blood did well. She had a 6-day admission and Dr. Orellana director of vocational guidance did an EGD with duodenal bleeding ulcer [...] (FLONASE) 50 mcg/actuation nasal spray Use 1 [place] in each nostril once daily. [address] (PROTONIX) 40 mg tablet Take 1 tablet by mouth once daily. 90 tablet 3 vit A,C,Y-Bviw-Jcrtsk (OCUVITE PRESERVISION) 2,148 mcg-113 mg-45 mg-17.4mg tab [...] factor (HCC) 03/07/2015 Dr. Hurley ([facility]) Unspecified hemorrhoids without mention of complication [...] SPINE FUSN,POST INTERBODY 2011 Dr. Armando at [facility]. 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 documented in this encounterFort Hamilton Hospital07-08-2024 Telephone encounter Note * Telephone Encounter - Ashley Rahman MA - 08/27/2023 9:59 AM EDT Please call Pt to schedule Limited Echo prior to next OV with Bibi Alegria. [facility]07-[facility] Miscellaneous Notes* Telephone Encounter - Ashley Rahman MA - 08/27/2023 9:59 AM EDT Please call Pt to schedule Limited Echo prior to next OV with Bibi Alegria. documented in this encounterFort Hamilton Hospital07-08-2024 NoteHNO ID: [id number] Author: WILLIAM MESSINA, DO Service: ? Author Type: Physician Type: Progress Notes Filed: 08/27/2023 14:47 Note Text: [facility] SE[facility] CARDIOLOG[facility] OUTPATIENT VISIT DATE August 27, 2023 PRIMARY CARE PHYSICIAN: Claudine Durán [address] [place] [address] HISTORY OF PRESENT ILLNESS: Ms. Bustamante is [...] involving multiple sites with positive rheumatoid factor ([facility]) 03/07/2015 Dr. Hurley ([facility]) Unspecified hemorrhoids without mention of complication Hemorrhoids PAST SURGICAL HISTORY Procedure Laterality Date COLONOSCOPY FLX DX W/COLLJ SPEC WHEN PFRMD 10/2003 Colonoscopy COLONOSCOPY FLX DX W/COLLJ SPEC WHEN PFRMD 05/18/2014 Colonoscopy COLONOSCOPY (more content not included)...[id number] History of Present illness Narrative* William Messina, - 08/27/2023 8:28 AM EDT Images from the original note were not included. [facility] SECTION OF REGIONAL CARDIOLOGY [facility] OUTPATIENT VISIT DATE August 27, 2023 PRIMARY CARE PHYSICIAN: Claudine Durán [address] [place] [address] HISTORY OF PRESENT ILLNESS: Ms. Bustamante is [...] Bronchiectasis (HCC) COPD (chronic obstructive pulmonary disease) ([facility]) Disseminated histoplasmosis Colitis, immunosuppression, 01/2018. Diverticulosis of colon (without mention of hemorrhage) Diverticulosis DVT, recurrent, lower extremity, acute ([facility]) 12/10/2014 Esophageal reflux Hiatal hernia 02/25/2018 Hypertension Lung nodule Personal history of unspecified urinary disorder 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 rheumatoid factor ([facility]) 03/07/2015 Dr. Hurley ([facility]) Unspecified hemorrhoids without mention of complication [...] SPINE FUSN,POST INTERBODY 2011 Dr. Armando at [facility]. Diskectomy and laminectomy PAST SURGICAL HISTORY OF [...] (FLONASE) 50 mcg/actuation nasal spray Use 1 [place] in each nostril once daily. pantoprazole DR (PROTONIX) 40 mg tablet Take 1 tablet by mouth once daily. vit A,C,W-Lysw-Jqfrvm (OCUVITE PRESERVISION) 2,148 mcg-113 mg-45 mg-17.4mg tab [...] to 7 days. William Messina DO, FACC, [facility] Client Service Professional, [facility] Client Service Professional, [facility] Rehabilitation Client Service Professional, [facility] Client Service Professional, [facility] Client Service Professional, [facility] Clinical Broadcast Transmitter Operator Profressor of Medicine, [facility] Staff Porcelain Buildup Assistant, [place] and Edilma Pierce Department of Cardiovascular Medicine/Heart [facility] V[facility] [place], [facility] Please note: This note has been produced using speech recognition software and may contain errors related to that system including madelyn, punctuation, spelling, words, gender and phrases that may be inappropriate. documented in this encounterFort Hamilton Hospital07-05-2024 Telephone encounter Note * Telephone Encounter [...] Scheduled pt with Dr. Messina next week. [facility]07-05[facility] Miscellaneous Notes* Telephone Encounter - Gracy [...] since d/c from hospital. documented in this encounterFort Hamilton Hospital07-05-2024 Telephone encounter Note * Telephone Encounter - Shirley Mccloud - 08/24/2023 3:53 PM EDT Pt called back and would like to speak to the nurses about her issues. [facility] Telephone encounter Note* Telephone Encounter - [...] how pt wasdoing since d/c from hospital. [facility]07-03-[facility]24 History of Present illness Narrative* Melissa Means, PAULA - 08/22/2023 4:20 PM EDT pcp agrees with information * Melissa Means, PAULA - 08/22/2023 10:02 AM EDT patient had inr completed at [facility] patients inr is 1.1 (patients inr range [...] not agree with recommendation documented in this encounterFort Hamilton Hospital07-03-2024 Instructions* Patient Instructions* Claudine Durán MD [...] 1 to 2 weeks. documented in this encounterFort Hamilton Hospital06-20-2024 History of Present illness Narrative* Jimbo Swanson APRN.CNS - 08/09/2023 11:42 AM EDT Continue with current Coumadin dose unchanged and check INR in 2 weeks * Melissa Means RN - 08/09/2023 10:19 AM EDT patient had inr completed at [facility] patients inr is 2.1 (patients inr [...] reading since dose change documented in this encounterFort Hamilton Hospital06-19-2024 History of Present illness Narrative* Twyla Cuevas APRN.REGIONAL CONTROLLER - 08/08/2023 2:37 PM EDT SUBJECTIVE Haydee [...] (FLONASE) 50 mcg/actuation nasal spray Use 1 [place] in each nostril once daily. vit A,C,U-Qjpr-Urmtii (OCUVITE PRESERVISION) 2,148 mcg-113 mg-45 mg-17.4mg tab [...] Comment: Added automatically from request for surgery [id number] Ddd (Degenerative Disc Disease), Lumbar - 07/30/2017 Spondylolisthesis of Lumbar Region - 07/30/2017 History of Recurrent Deep Vein Thrombosis (Dvt) - 10/29/2016 Pain in Right Hip - 05/05/2016 Low Back Pain With Right-Sided Sciatica - 05/05/2016 Essential Hypertension - 03/07/2015 Rheumatoid Arthritis (Hcc) - 03/07/2015 Comment: Dr. Hurley ([facility]) Ganglion Cyst - 08/17/2014 Atrophic Vaginitis - 03/06/2013 Hnp (Herniated Nucleus Pulposus), Lumbar - 03/20/2011 Elevated Liver Enzymes - 04/01/2009 [facility] Current Use of Anticoagulant Therapy - 04/01/2009 [...] scheduled appointment.. GREG Guajardo documented in this encounterFort Hamilton Hospital06-18-2024 Telephone encounter Note * Telephone Encounter [...] CARMEN Viveros August 07, 2023 8:47 AM [facility]-18-[facility] Miscellaneous Notes* Telephone Encounter - Thi [...] 07, 2023 8:47 AM documented in this encounterFort Hamilton Hospital06-11-2024 Telephone encounter Note * Telephone Encounter [...] LPN July 31, 2023 11:34 AM ] [facility] Miscellaneous Notes* Telephone Encounter - Lynne [...] 2023 11:34 AM ] documented in this encounterFort Hamilton Hospital06-10-2024 Telephone encounter Note * Telephone Encounter [...] Patel MA July 30, 2023 9:25 AM [facility]06-10-[facility]24 Miscellaneous Notes* Telephone Encounter - Danielle [...] once daily. Inhale two puffs once daily. Dnaielle Patel MA July 30, 2023 9:25 AM documented in this encounterFort Hamilton Hospital06-06-2024 History of Present illness Narrative* Lauren Bowens APRN.CNP - 07/26/2023 3:21 PM EDT Agree with below recommendations. Lauren Bowens APRN.CNP * Melissa Means RN - 07/26/2023 11:06 AM EDT patient had inr completed at [facility] patients inr is 1.6 (patients inr [...] not agree with recommendation documented in this encounterFort Hamilton Hospital06-03-2024 Telephone encounter Note * Telephone Encounter [...] in August and will discuss with him. [facility] Miscellaneous Notes* Telephone Encounter - Yesenia [...] Please review and advise, Lulu Quigley RN documented in this encounterFort Hamilton Hospital06-01-2024 Telephone encounter Note * Telephone Encounter [...] a day. Authorizing Provider: CLAUDINE DURÁN MD [facility]05-31-2024 Telephone encounter Note* Telephone Encounter - Lulu Quigley RN - [...] Please review and advise, Lulu Quigley RN [facility]05-29-2024 Telephone encounter Note* Telephone Encounter - Claudine Durán MD - 07/18/2023 1:17 PM EDT The following approved medication requests have been transmitted electronically. Requested Prescriptions Pending Prescriptions Disp Refills itraconazole (SPORANOX) 10 mg/mL solution 1200 mL 0 Sig: Take 20 mL by mouth two times a day. Claudine Durán MD [facility]05-29-2024 Miscellaneous Notes* Telephone Encounter - Claudine [...] you. Danielle Patel MA. documented in this encounterFort Hamilton Hospital05-28-2024 Telephone encounter Note * Telephone Encounter [...] Please advise. Thank you. Danielle Patel MA. [facility]05-24-2024 Telephone encounter Note* Telephone Encounter - Jimbo Swanson APRN.CNS - 07/13/2023 12:00 PM EDT OK please schedule with ortho [facility]-24-20[facility] Miscellaneous Notes* Telephone Encounter - Jimbo Swanson APRN.CNS - 07/13/2023 12:00 PM EDT OK please schedule with ortho * Telephone Encounter - Diana Evans LPN - 07/13/2023 9:17 AM EDT Patient aware of results and provider recommended follow up. Patient would like to see an orthopedic Provider here in [place] at the [facility]. Aware may need to be scheduled with a PA instead of a Dr and verbalizes understanding. If a consult or referral needed, please call patient after consult ordered, to assist in schedulingappointment. Patient is on 3rd day of Prednisone today. States had a better day yesterday than in a long time and accomplished a lot.. No pain and less edema. Diana Evans LPN * Telephone Encounter - Yesenia Weinstein LPN - 07/12/2023 3:44 PM EDT No answer. Left message for patient to call office and ask to speak to a nurse regarding Ultrasoundresults * Telephone Encounter - Jimbo Swanson APRN.CNS - 07/12/2023 3:14 PM EDT No thrombophlebitis or DVT. Does have fluid collection at her knee. Would recommend seeing orthopedist or drop hammer set up operator for this at her earliest convenience, check to see if prednisone is helping. Left message. documented in this encounterFort Hamilton Hospital05-24-2024 Telephone encounter Note * Telephone Encounter - Diana Evans LPN - 07/13/2023 9:17 AM EDT Patient aware of results and provider recommended follow up. Patient would like to see an orthopedic Provider here in [place] at the [facility]. Aware may need to be scheduled with a PA instead of a Dr and verbalizes understanding. If a consult or referral needed, please call patient after consult ordered, to assist in schedulingappointment. Patient is on 3rd day of Prednisone today. States had a better day yesterday than in a long time and accomplished a lot.. No pain and less edema. Diana Evans LPN [facility]-23-2024 Telephone encounter Note* Telephone Encounter - Yesenia Weinstein LPN - 07/12/2023 3:44 PM EDT No answer. Left message for patient to call office and ask to speak to a nurse regarding Ultrasoundresults [facility] Telephone encounter Note* Telephone Encounter - Jimbo Swanson APRN.CNS - 07/12/2023 3:14 PM EDT No thrombophlebitis or DVT. Does have fluid collection at her knee. Would recommend seeing orthopedist or drop hammer set up operator for this at her earliest convenience, check to see if prednisone is helping. Left message. [facility] History of Present illness Narrative* Jimbo Swanson APRN.CNS - 07/12/2023 3:08 PM EDT Continue Coumadin dose unchanged and check INR in 2 weeks * Melissa Means RN - 07/12/2023 10:12 AM EDT patient had inr completed at [facility] patients inr is 1.8 (patients inr [...] reading since dose change documented in this encounterFort Hamilton Hospital05-21-2024 History of Present illness Narrative* Jimbo [...] bicuspid valve, lung nodule bronchiectasis and COPD. Recruiting Internship: Florence Collins MD, for follow-up of lung nodules bronchiectasis. Noted are a likely etiology for underlying bronchiectasis. Porcelain Buildup Assistant: William GOTTI, aortic stenosis. Manager Power: Crystal Gin. Reports currently not taking Humira or methotrexate due to histoplasmosis. Infectious disease Dr. Hart, August appointment. She was seen by his PCP in May 2023 [facility]. She was [...] fluticasone (FLONASE) 50 mcg/actuation nasal spray^Use 1 [place] in each nostril once daily.^Disp: 3 Each^Rfl: 3 vit A,C,S-Ylwk-Ytmpkh (OCUVITE PRESERVISION) 2,148 mcg-113 mg-45 mg-17.4mg tab^Take [...] factor (HCC) 03/07/2015 Dr. Hurley ([facility]) Unspecified hemorrhoids without mention of complication [...] Level: 4 - Moderate documented in this encounterFort Hamilton Hospital05-16-2024 History of Present illness Narrative* Melissa Means RN - 07/05/2023 4:27 PM EDT PATIENT NOTIFIED OF INFORMATION * Jimbo Swanson APRN.CNS - 07/05/2023 2:21 PM EDT Agree hold Coumadin today and then take 5 mg daily starting tomorrow and check INR in 1 week * Melissa Means RN - 07/05/2023 1:48 PM EDT patient had inr completed at [facility] patients inr is 3.5 (patients inr range [...] and advise on recommendation documented in this encounterFort Hamilton Hospital05-16-2024 History of Present illness Narrative* Ilda Miller RN - 07/05/2023 4:00 PM EDT [facility] Telephonic Outreach Provider Candelaria/SHAYNE N/A Contacted for: Engagement Last questionnaire completed: 03/13/23 My Chart reminder letter sent 04/16/23 No response to date to My Chart questionnaire. Contact made with patient: No, left message. Ilda Miller RN July 05, 2023 4:04 PM documented in this encounterFort Hamilton Hospital05-13-2024 Telephone encounter Note * Telephone Encounter [...] 10/11/2023 Please advise. Thank you. CARMEN Viveros. [facility] Miscellaneous Notes* Telephone Encounter - Thi [...] Thank you. CARMEN Viveros. documented in this encounterFort Hamilton Hospital05-13-2024 Telephone encounter Note * Telephone Encounter [...] Please advise. Thank you. Danielle Patel MA. [facility]05-13-2024 Miscellaneous Notes* Telephone Encounter - Danielle [...] you. Danielle Patel MA. documented in this encounterFort Hamilton Hospital04-23-2024 Telephone encounter Note * Telephone Encounter - Brittany Cedillo LPN - 06/12/2023 2:59 PM EDT Pt has not reviewed the my chart message. Message left to her home number to either review the my chart message or call back to spoke to a nurse. [facility]-23-[facility] Miscellaneous Notes* Telephone Encounter - Brittany [...] Thank you. Dionne Nunez. documented in this encounterFort Hamilton Hospital04-19-2024 Telephone encounter Note * Telephone Encounter - Brittany Cedillo LPN - 06/08/2023 10:05 AM EDT Pt notified via my chart. [facility]-19-[facility] Telephone encounter Note* Telephone Encounter - [...] two times a day. Claudine Durán MD [facility]04-18-2024 Telephone encounter Note* Telephone Encounter - [...] advise. Thank you. Maritza Preston LPN. Yes [facility]04-18-2024 Telephone encounter Note* Telephone Encounter - [...] found Please advise. Thank you. Dionne Nunez. [facility]04-16-2024 Instructions* Patient Instructions* Claudine Durán MD - 06/05/2023 3:50 PM EDT Consider seeing Dr. Orellana's GI partner for follow up on elevated liver enzymes. documented in this encounterFort Hamilton Hospital04-16-2024 History of Present illness Narrative* Claudine Durán MD - 06/05/2023 3:28 PM EDT This note was created using Reconnexter. Subjective Haydee Bustamante is a 78 year old female. Patient presents with: Discharge Skilled Rehab: Discharged from [facility] SUBJECTIVE: Haydee Bustamante is a 78 year old year old lady here today for follow up appointment for review of medical conditions after in [facility] after being in TCU after hospitalization. Did well with PT/OT ST at TCU at [facility] noted for swallowing--no problems with swallowing now. Gastric ulcer--was not aware; also anemia 2/22 Hg 10.1 DVT noted bilateral; pain resolved. Wears compression wrappings. Stocking--helped to have marking for heel COPD and histo--chronic cough no worse than usual. Needed to replace Dulera which replaced Symbicort; needed refill for albuterol. PAST MEDICAL HISTORY Diagnosis Date Anemia Bone marrow involvement with histoplasmosis Bronchiectasis ([facility]) COPD (chronic obstructive pulmonary disease) ([facility]) Disseminated histoplasmosis Colitis, immunosuppression, 01/2018. Diverticulosis of colon (without mention of hemorrhage) Diverticulosis DVT, recurrent, lower extremity, acute ([facility]) 12/10/2014 Esophageal reflux Hiatal hernia 02/25/2018 Hypertension Lung nodule Personal history of unspecified urinary disorder 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 rheumatoid factor ([facility]) 03/07/2015 Dr. Hurley ([facility]) Unspecified hemorrhoids without mention of complication [...] (FLONASE) 50 mcg/actuation nasal spray Use 1 [place] in each nostril once daily. albuterol HFA (PROAIR HFA) 90 mcg/actuation inhaler Inhale 2 Puffs as instructed every 4 hours as needed. vit A,C,I-Lzxz-Jzhvaq (OCUVITE PRESERVISION) 2,148 mcg-113 mg-45 mg-17.4mg tab [...] the date of the service which included [id number] patient care, completing clinical documentation, obtaining and/or reviewing separately obtained history, performing a medically appropriate examination, counseling and educating the patient/family/caregiver, ordering medications, tests, or procedures, independently interpreting results (not separately reported), and communicating results to the patient/family/caregiver. Claudine Durán MD documented in this encounterFort Hamilton Hospital03-11-2024 Miscellaneous Notes* Telephone Encounter - Brittany Cedillo LPN - 04/30/2023 11:09 AM EDT Rec'd rec'd from [facility] pt to be d/c from [facility] to [facility] private pay for therapy documented in this encounterFort Hamilton Hospital03-08-2024 Discharge summary Author Edinson Albaro [facility] April 27, 2023 1:24pm Note Date/Time April 27, 2023 1:24 pm [facility] Medical Records Department [address] [place] [address] Transfer to [facility] MR#: [id number] Acct: [id number] Name: HAYDEE BUSTAMANTE Rep #:[id number] : 1945 77 From: Edinson Irvin MD PCP: Dr. Claudine Durán MD Status:AD M IN Certification of patient admission REQUIRED AT TIME OF ADMISSION. I CERTIFY THAT POST-HOSPITAL ECF SERVICES ARE REQUIRED TO BE GIVEN ON AN IN-PATIENT BASIS BECAUSE OF THE ABOVE NAMED PATIENT'S NEED FOR CORRECTION CARE ON A CONTINUING BASIS FOR THE CONDITION(S) FOR WHICH HE/SHE WAS RECEIVINGIN-PATIENT HOSPITAL SERVICES PRIOR TO HIS/HER TRANSFER TO THE [facility]. 04/27/23 1324<Electronically signed by Edinson Irvin MD> [...] Additional Instructions / Restrictions: Discharge 04/30/2023 to [facility], private pay, part B therapies. Discharge Orders/Prescriptions [...] Qty: 0 0RF fluticasone propionate 50 mcg/actuation [place],Suspension 1 spray NASAL DAILY Qty: 0 0RF [...] applicable): CC: Dr. Claudine Durán MD ~ [facility] Work Phone: 1(505) 203-538703-08-2024 Discharge summary Author [facility] April 27, 2023 1:23pm Note Date/Time April 27, 2023 1:17 pm [facility] Medical Records Department [address] [place] [address] Discharge Summary 04/27/23 1316 MR#: [id number] Acct: [id number] Name: HAYDEE BUSTAMANTE Rep #:[id number] : 1945 77 From: Edinson Irvin MD PCP: Dr. Claudine Durán MD Status:AD M IN Location: [facility] TCU03-1 Providers Date of Admission: 04/05/23 Primary Care Physician: Dr. Claudine Durán MD Consultations 04/10/23 10:44 Consult: Onc/Wound/palletiser operator Routine Comment: Reason for Consult:: bilateral lowers [...] 1 tab PO DAILY supplement 03/19/23 vitamins A,C,H-iqfa-ktakry 2,148 mcg-113 mg-45 mg-17.4 mg tablet (PreserVision [...] DVT right lower extremity. Discharge 04/30/2023 to [facility] private pay, part B therapies. Physical [...] Uncontrolled pain Additional Instructions: Discharge 04/30/2023 to [facility], private pay, part B therapies. Meaningful Use Info Meaningful Use Diagnoses (Choose all that apply): None applicable Discharge Plan Admission Admit Date/Time: 04/05/23 13:33 Primary Reason for Your Visit: Debility. Attending Provider: Edinson Irvin Chi Primary Care Provider: Claudine Durán Instructions Additional Instructions / Restrictions: Discharge 04/30/2023 to [facility], [facility], part B therapies. Discharge Orders/Prescriptions Prescriptions: New [...] Qty: 0 0RF fluticasone propionate 50 mcg/actuation [place],Suspension 1 spray NASAL DAILY Qty: 0 0RF [...] MD> Cosigner Signature (if applicable): CC: Dr. Claudnie Durán MD; Dr. Edinson rIvin MD~ Signed [facility] Work Phone: 1(569) 867-341902-21-2024 History and physical note Author Edinson Albaro [facility] April 11, 2023 11:37am Note Date/Time April 05, 2023 8:06pm [facility] Medical Records Department [address] [place] [address] History & Physical Exam 04/05/231955 MR#: [id number] Acct: [id number] Name: HAYDEE BUSTAMANTE Rep #:[id number] : 1945 77 From: Edinson Irvin MD PCP: Dr. Claudine Durán MD Status:AD IN Location: [place] [address] HPI - General General Date of Admission: 04/05/23 Date of Service: 04/05/23 Chief Complaint: Here for rehabilitation. HPI Narrative 03/31/2023 HAYDEE BUSTAMANTE, is a 77 Female who presents to [facility] ED with edema. FTT, bilateral lower extremity edema, right lower extremity redness. Unable to care for self at home, fell, could not get up. On floor for hours. Worsening right leg pain. WBC 19.4, Hemoglobin 8.3, INR 1.3, K 3.2, BNP okay, CK okay. Chest X-ray negative, X-ray right tibia/fibula negative. Clindamycin IV for right lower extremity cellulitis. 03/31/2023 Admit to [facility]. Levaquin, Doppler right lower extremity for [...] rehabiliation, strengthening, prior to discharge home alone. [facility] Medical History (Updated 04/05/23 @ 20:05 by [...] Q24H 03/19/23 [History Last Taken Unknown] vitamins A,C,S-gsez-spujbo 2,148 mcg-113 mg-45 mg-17.4 mg tablet (PreserVision [...] MD; Dr. Edinson Irvin MD ~* Signed [facility] Work Phone: 1(279) 721-421602-19-2024 Procedure [facility] 04-06-2023 Progress note Author Amparo Marina [facility] April 06, 2023 3:02pm Note Date/Time April 06, 2023 2:39pm [facility] Medical Records Department [address] [place] [address] Progress Note - Pharmacy 04/06/23 1438 MR#: [id number] Acct: [id number] Name: HAYDEE BUSTAMANTE Rep #:[id number] : 1945 77 From: Amparo Marina PCP: Dr. Claudine Durán MD Status:AD M IN Location: [place] [id number] Documented by User: Amparo Marina 04/06/23 15:02 [...] 04/06/23 10:00 04/06/23 08:50 Fluticasone 0.05% 1 [place] Nasal.Sry NASAL 1 spray DAILY MARGARETTE Administration Gabapentin 300 mg 04/05/23 22:00 04/06/23 08:52 Gabapentin 300 Mg Capsule PO 300 mg Q12 MARGARETTE Administration Itraconazole 200 mg 04/05/23 17:00 04/06/23 08:48 Itraconazole 100 Mg Capsule PO 200 mg BIDCM [facility] Administration Magnesium Citrate 300 ml 04/05/23 20:14 Magnesium Citrate 300 Ml PO DAILY PRN Constipation Multivitamins 1 tablet 04/06/23 08:00 04/06/23 08:49 Multivitamins,Therapeutic Tablet [facility] Administration Multivitamins/Minerals 2 cap 04/05/23 17:00 04/06/23 08:48 Multivitamin (Healthy Eyes) Capsule PO 2 [facility] Administration Oxycodone HCl 5 mg 04/05/23 14:09 Oxycodone 5 Mg Tablet PO Q4H PRN PRN Pain Score 4-10 Pantoprazole Sodium 40 mg 04/05/23 22:00 04/06/23 08:49 Pantoprazole Sodium 40 Mg Tablet PO 40 mg BID MARGARETTE Administration Potassium Chloride 20 meq 04/07/23 08:00 Potassium Chloride Oral Tablet 20 Meq [facility] Senna/Docusate Sodium 1 tablet 04/05/23 22:00 04/06/23 08:49 Senna/Docusate Sodium 1 Tablet PO 1 tablet BID MARGARETTE Administration Tuberculin PPD 0.1 ml 04/13/23 10:00 Tuberculin,Purif.Prot.Deriv. 50 Tu/Ml Vial ID 04/13/23 10:01 X1 ONE Problem List (Updated 04/05/23 @ 20:[address] Edinson Irvin MD) History of blood clots (Acute) [...] by Edinson Irvin MD> CC: ~ Signed [facility] Work Phone: 1(317) 374-640002-15-2024 Consult note Author [facility] April 05, 2023 10:22am Note Date/Time April 04, 2023 4:12pm [facility] [address] [place] [address] Consultation - Oncology IP 04/04/23 1610 MR#: [id number] Acct: [id number] Name: ROBBYHAYDEE DIONTE Rep #:[id number] : 1945 77 From: Alcides tavares MD PCP: Dr. Claudine Durán MD Status:AD M [place] Location: [facility] [id number]- 1 Assessment & Plan Assessment/Plan (1) Thrombocytopenia: Status: Acute Code(s): D69.6 - Thrombocytopenia, unspecified Plan: Acute moderately severe onset is in March 2023 no active bleeding and no evidence for recent thrombosis no recent use of heparin. She has a remote history of venous thromboembolic disease and was on Coumadin until recent hospitalization at [facility] in early March 2023. Has had [...] prophylaxis.. 4. Patient's is an established at [facility] and therefore I advised continued follow-up there. Impression and plan discussed with the patient and her friend. Impression and plan discussed with hospitalist. Alcides Abel MD [employer], [facility] Divisions of Medical Oncology & Hematology Department of Internal Medicine [place] [address] This note was generated using a voice [...] an acute thrombocytopenia (see lab section for retail wireless sales representative platelet counts) with no active bleeding or thrombosis. The patient has multiple chronic medical problems and multiple hospitalizations between [facility] and [facility] and is presenting with failure to [...] early March 2023 she was seen at [facility] and transferred to [facility] with suspected bowel perforation and was treated conservatively with antimicrobials. On the current admission she was receiving Cipro and Flagyl in addition to itraconazole s that was started around February 2023. In her last admission to [facility] in March 2023 Coumadin was held, because not clear and patient as far as she can tell did not receive any heparin injections . Advanced Directives Power of Production Boring Machine Operator: Yes Living Will: Yes [facility] Medical History (Updated 04/05/23 @ 10:09 by [...] Q24H 03/19/23 [History Last Taken Unknown] vitamins A,C,P-rfch-cyusvo 2,148 mcg-113 mg-45 mg-17.4 mg tablet (PreserVision [...] (Auto) 76.5 H, Lymph % (Auto) 9.4L, Esmeralda % (Auto) 8.3, Eos % (Auto) 4.9, [...] DO; Dr. London Sandra MD; Dr. Leobardo Calloawy MD; Dr. Chris Royal MD; Dr. Jorgito Agarwal DO ~ Signed [facility] Work Phone: 1([phone]) 457-532402-14-2024 Progress note Author Jasmyn [facility] April 04, 2023 6:11pm Note Date/Time April 04, 2023 6:11pm [facility] Medical Records Department [address] [place] [address] Progress Note - Hospitalist 04/04/23 1807 MR#: [id number] Acct: [id number] Name: HAYDEE BUSTAMANTE Rep #:[id number] : 1945 77 From: Jasmyn Chan DO PCP: Dr. Claudine Durán MD Status:AD M [place] Location: [place] [address]- Reason for Visit Reason for Visit: Diagnoses [...] (Auto) 76.5 H, Lymph % (Auto) 9.4L, Esmeralda % (Auto) 8.3, Eos % (Auto) 4.9, [...] 73.8 H, Lymph % (Auto) 11.4 L, Esmeralda % (Auto) 9.8, Eos % (Auto) 4.2, [...] 25 minutes Charges/Coding Visit Charges Inpatient E&M: 14550 Subs Hosp L1 04/04/23 1811 <Electronically signed by Jasmyn Chan DO> Cosigner Signature (if applicable): CC: ~ Signed [facility] Work Phone: 1(139) 939-214602-13-2024 Progress note Author Mathew Orellana [facility] April 03, 2023 5:53pm Note Date/Time April 03, 2023 5:53pm [facility] Medical Records Department [address] [place] [address] Progress Note - GI 04/03/23 1750 MR#: [id number] Acct: [id number] Name: HAYDEE BUSTAMANTE Rep #:[id number] : 1945 77 From: Mathew Orellana DO PCP: Dr. Claudine Durán MD Status:AD M IN Location: [place] [address] Subjective Subjective Patient is doing well without [...] Protocol: Document 04/01/23 12:03 (Rec: 04/01/23 12:03 [id number]) Nutrition Malnutrition Evidence of Malnutrition Exists Yes [...] (Auto) 82.5 H, Lymph % (Auto) 6.5L, Esmeralda % (Auto) 7.5, Eos % (Auto) 2.7, [...] PE),Recent diagnosis Histoplasmosis, recent 03/21/33 evaluation at [facility] with transfer to [facility] secondary to concerns for complex bowel [...] needs any acid suppression she can get hand tube bender fate or H2 receptor pietro. Charges/Coding Visit Charges Inpatient E&M: 24733 [facility] Hosp 04/03/23 3070 <Electronically signed by Mathew Orellana DO> Cosigner Signature (if applicable): CC: ~ Signed [facility] Work Phone: 1(429) 131-996702-13-2024 Progress note Author Jasmyn Chan [facility] April 03, 2023 5:36pm Note Date/Time April 03, 2023 5:36pm [facility] Medical Records Department [address] [place] [address] Progress Note - Hospitalist 04/03/23 1730 MR#: [id number] Acct: [id number] Name: HAYDEE BUSTAMANTE Rep #:[id number] : 1945 77 From: Jasmyn Chan DO PCP: Dr. Claudine Durán MD Status:AD M IN Location: [place] [address] Reason for Visit Reason for Visit: Diagnoses [...] Protocol: Document 04/01/23 12:03 (Rec: 04/01/23 12:03 [id number]) Nutrition Malnutrition Evidence of Malnutrition Exists Yes [...] (Auto) 82.5 H, Lymph % (Auto) 6.5L, Esmeralda % (Auto) 7.5, Eos % (Auto) 2.7, [...] 25 minutes Charges/Coding Visit Charges Inpatient E&M: 81763 Subs Hosp L1 04/03/23 1736 <Electronically signed by Jasmyn Chan DO> Cosigner Signature (if applicable): CC: ~ Signed [facility] Work Phone: 1(915) 477-168102-12-2024 Progress note Author Jasmyn [facility] April 02, 2023 8:07pm Note Date/Time April 02, 2023 8:07pm [facility] Medical Records Department [address] [place] [address] Progress Note - Hospitalist 04/02/232000 MR#: [id number] Acct: [id number] Name: HAYDEE BUSTAMANTE Rep #:[id number] : 1945 77 From: Jasmyn Chan DO PCP: Dr. Claudine Durán MD Status:AD M IN Location: [place] [address] Reason for Visit Reason for Visit: Diagnoses [...] Protocol: Document 04/01/23 12:03 (Rec: 04/01/23 12:03 [id number]) Nutrition Malnutrition Evidence of Malnutrition Exists Yes [...] (Auto) 86.6 H, Lymph % (Auto) 6.4L, Esmeralda % (Auto) 5.4, Eos % (Auto) 0.6, [...] acute debility-patient may need placement in a snf facility for short-term rehab services. #6 histoplasmosis-patient is currently on itraconazole Total clinical time spent by myself addressing the patient's medical issues, reviewing all of her data, and collaborating with patient's care team: 25 minutes Charges/Coding Visit Charges Inpatient E&M: 24848 Subs Hosp L1 04/02/232006 <Electronically signed by Jasmyn Chan DO> Cosigner Signature (if applicable): CC: ~ Signed [facility] Work Phone: 1(145) 146-219302-12-2024 Miscellaneous Notes* Telephone Encounter - Claudine Durán MD - 04/02/2023 7:52 PM EST Noted regarding fall. * Telephone Encounter - Doretha Miller RN - 04/02/2023 9:44 AM EST Friend answered pt's phone, and after informed this is a nurse in pcp office, friend reported pt was admitted into [facility] PCU after a fall on Sat. Friend does not think there was an injury from fall. Friend reports patient was in [facility] for 1 week, and has been in and out of ER several times since discharge. Advised we would f/u with pt once discharged from [facility]. * Telephone Encounter - Claudine Durán MD - 04/01/2023 4:51 PM EST Noted Patient had recent labs done during admission (was at [facility] and discharged 03/25) Noted alk phos [...] 02/27/2023 1:48 PM EST Faxed received from [facility] Melissa Dorsey CNP stating that the liver enzymes are worse. Please review copy of labs and advise. [facility] Consult note Author Mathew Orellana [facility] April 02, 2023 5:06pm Note Date/Time April 02, 2023 5:00pm [facility] Medical Records Department [address] [place] [address] Consultation - GI 04/01/23 1658 MR#: [id number] Acct: [id number] Name: HAYDEE BUSTAMANTE Rep #:[id number] : 1945 77 From: Mathew Orellana DO PCP: Dr. Claudine Durán MD Status:AD M IN Location: [facility] [id number]- 1 HPI Consult Data Date of Consult: 04/01/23 HPI Narrative Reason for Consultation: Anemia HPI Narrative: HAYDEE BUSTAMANTE, is a 77-year-old female history of COPD, Severe . GERD. DVT and PEon Coumadin, histoplasmosis of the lung, RA who presented to [facility] ED 03/31/2023 with bilateral lower extremity edema. She was seen here 03/28/2023 with lower extremity edema. She was initially seen here 03/26/2023 for shortness of breath and inability to care for herself at home after a recent hospital stay at [facility] from which she was discharged on [...] her because her hemoglobin decreased to 6.5. [facility] Medical History (Updated 04/02/23 @ 17:05 by [...] Q24H 03/19/23 [History Last Taken Unknown] vitamins A,C,B-okqi-rfupky 2,148 mcg-113 mg-45 mg-17.4 mg tablet (PreserVision [...] Protocol: Document 04/01/23 12:03 (Rec: 04/01/23 12:03 [id number]) Nutrition Malnutrition Evidence of Malnutrition Exists Yes [...] (Auto) 86.6 H, Lymph % (Auto) 6.4L, Esmeralda % (Auto) 5.4, Eos % (Auto) 0.6, [...] PE),Recent diagnosis Histoplasmosis, recent 03/21/33 evaluation at [facility] with transfer to [facility] secondary to concerns for complex bowel [...] of 3 Charges/Coding Visit Charges Inpatient E&M: 83745 Init Hosp L3 04/02/23 1706 <Electronically signed by Mathew Orellana DO> Cosigner Signature (if applicable): CC: Dr. Alisa Mathew MD; Dr. Claudine Durán MD; Dr. Laine Veras MD~ Signed [facility] Work Phone: 1(191) 898-206402-12-2024 Procedure [facility] 04-02-2023 Procedure [facility]02-11-2024 Miscellaneous Notes* Telephone Encounter - Claudine Durán MD - 04/01/2023 4:36 PM EST See MyChart reply documented in this encounter[facility] Progress note Author Alisa Mathew [facility] April 01, 2023 12:08pm Note Date/Time April 01, 2023 6:46am [facility] Medical Records Department [address] [place] [address] Progress Note - Hospitalist 04/01/23641 MR#: [id number] Acct: [id number] Name: HAYDEE BUSTAMANTE Rep #:[id number] : 1945 77 From: Alisa Mathew MD PCP: Dr. Claudine Durán MD Status:AD M IN Location: [place] [address]- Reason for Visit Reason for Visit: Diagnoses [...] 90.8 H, Lymph % (Auto) 3.0 L, Esmeralda % (Auto) 5.0, Eos % (Auto) 0.1, [...] 88.5 H, Lymph % (Auto) 4.7 L, Esmeralda % (Auto) 5.6, Eos % (Auto) 0.2, [...] 19:30 EST Reading Location ID and State: [place] / [place] Tel , Service support , Chest X-Ray 03/31/23 18:32 IMPRESSION: No change from prior study. Electronically Signed: Michael Galarza MD at 19:29 EST Reading Location ID and State: [facility] / [place] Tel , Service support , Ankle X-Ray [...] PE),Recent diagnosis Histoplasmosis, recent 03/21/33 evaluation at [facility] with transfer to [facility] secondary to concerns for complex bowel [...] therapy with planned outpatient work-up, discharged from [facility] 03/25/23 with decline upon return to home, inability to safely care for self prompting presentation to the [facility] ED on 03/26/23 for SNF placement needs but improved and declined SNF placement again who now re-presents to the [facility] ED on 03/31/23 with history of [...] follow-up as previously arranged per Surgery team [facility]. #11. Rheumatoid arthritis: Patient outpatient on Humira, methotrexate and leucovorin however this has been continued to be held secondary to a recent hospitalization in [facility] with disseminated histoplasmosis and concern for bowel perforation/colitis, resume once allowed per infectious disease. #12. Valvular heart disease with aortic stenosis with recent diagnosis moderatepericardial effusion: Recent evaluation in [facility], no intervention but close observation for moderate [...] Code status. Charges/Coding Visit Charges Inpatient E&M: 48613 Subs Hosp L3 04/01/23 1208 <Electronically signed by Alisa Mathew MD> Cosigner Signature (if applicable): CC: ~ Signed [facility] Work Phone: 1(818) 290-828602-10-2024 History and physical note Author Laine Veras [facility] March 31, 2023 8:59pm Note Date/Time March 31, 2023 8:20pm [facility] Medical Records Department [address] [place] [address] H&P Exam - Hospitalist 03/31/232011 MR#: [id number] Acct: [id number] Name: HAYDEE BUSTAMANTE Rep #:[id number] : 1945 77 From: Laine Veras MD PCP: Dr. Claudine Durán MD Status:AD M IN Location: [place] [id number]- [id number] HPI - General General Date of Admission: 03/31/23 Date of Service: 03/31/23 Chief Complaint: BLE edema and weeping HPI Narrative HAYDEE BUSTAMANTE, is a 77-year-old female history of COPD, Severe . GERD. DVT and PEon Coumadin, histoplasmosis of the lung, RA who presented to [facility] ED 03/31/2023 with bilateral lower extremity edema. She was seen here 03/28/2023 with lower extremity edema. She was initially seen here 03/26/2023 for shortness of breath and inability to care for herself at home after a recent hospital stay at [facility] from which she was discharged on [...] is unsure if she's taking her coumadin [facility] Medical History (Updated 03/31/23 @ 20:42 by [...] Q24H 03/19/23 [History Last Taken Unknown] vitamins A,C,L-ngfs-ibmzgo 2,148 mcg-113 mg-45 mg-17.4 mg tablet (PreserVision [...] 90.8 H, Lymph % (Auto) 3.0 L, Esmeralda % (Auto) 5.0, Eos % (Auto) 0.1, [...] for bowel perf treated conservatively -Treated at [facility] -s/p cipro and flagyl, no present abd complaints # Disseminated histoplasmosis -Continue itraconazole twice daily -Patient to follow-up with a Dr. Hart in 3 months # Recent COVID-19 -Tested positive here end of February -No resp complaints #Hx COPD -Continue inhalers #Hx and mod pericardial effusion -Seen at [facility] and pt advised to f/u outpt [...] documentation, 78Minutes Charges/Coding Visit Charges Inpatient E&M: 27584 Init Hosp L3 03/31/232058 <Electronically signed by Laine Veras MD> Cosigner Signature (if applicable): CC: Dr. Claudine Durán MD; Dr. Laine Veras MD~ Signed [facility] Work Phone: 1(682) 824-905902-10-2024 Discharge summary Author Martín Clemente [facility] March 31, 2023 8:00pm Note Date/Time March 31, 2023 5:48pm [facility] Medical Records Department [address] [place] [address] Emergency Department Summary 03/31/23 MR#: [id number] Acct: [id number] Name: HAYDEE BUSTAMANTE Rep #:[id number] : 1945 77 From: Martín Cornejo DO PCP: Dr. Claudine Durán MD Status:RE G ER Location: ED HPI <MEENU Leger - Last Filed: 03/31/23 19:55> History of Present Illness Chief Complaint: Edema Narrative Narrative: Patient is a 77-year-old female with a long history of lower leg edema, history of COPD, patient is on Coumadin, histoplasmosis, presenting to the [facility] apartment for failure to thrive, worsening [...] to go to a facility for rehab. [facility] <MEENU Leger - Last Filed: 03/31/23 19:55> [facility] Medical History Colitis COPD (chronic obstructive [...] Q24H 03/19/23 [History Last Taken Unknown] vitamins A,C,Z-wnwd-cppshm 2,148 mcg-113 mg-45 mg-17.4 mg tablet (PreserVision [...] Almazan MEENU - Last Filed: 03/31/23 19:55> [facility] Lab Data Labs: Laboratory Results - last 24 hr 03/31/23 18:12 WBC 19.4 H RBC 2.87 L Hgb 8.3 L Hct 24.9 L MCV 86.8 MCH 28.9 MCHC 33.3 RDW Std Deviation 75.1 H RDW Coeff of Catarino 24.1 H Plt Count 95 L MPV 10.4 Immature Gran % (Auto) 1.000 H Neut % (Auto) 90.8 H Lymph % (Auto) 3.0 L Esmeralda % (Auto) 5.0 Eos % (Auto) 0.1 [...] Cornejo, DO - Last Filed: 03/31/23 20:00> [facility] Narrative Medical decision making narrative: Patient appears [...] hospitalist. This patient was seen with a PA/COLOR MATCHER Individually assessed they patient including history and physical. I have reviewed everything on the chart that is availableand agree with the documentation provided by the PA/COLOR MATCHER including discussion about the assessment, treatment plan, [...] 90.8 H Lymph % (Auto) 3.0 L Esmeralda % (Auto) 5.0 Eos % (Auto) 0.1 [...] 19:30 EST Reading Location ID and State: [id number] / [employer] Tel , Service support , Chest X-Ray 03/31/23 18:32 IMPRESSION: No change from prior study. Electronically Signed: Michael Galarza MD at 19:29 EST , Discharge Plan Dx/Rx/DC Orders Clinical Impression: Leg edema, Cellulitis, Weakness, Adult failure to thrive Disposition Disposition: Acute Care Hospital [facility] What to do if you have Problems For any increased pain, shortness of breath, bleeding, nausea or vomiting, chestpain, or any unexpected problems, contact your Primary Care Provider. Call [facility] ([phone]) or report to the closest Emergency Room. Call 911 if necessary. 03/31/231999 <Electronically signed by Martín Cornejo DO> Cosigner Signature (if applicable): 03/31/231954 <Electronically signed by Frederick SORTOC> CC: Dr. Claudine Durán MD ~ Signed [facility] Work Phone: 1(620) 815-318002-10-2024 Discharge summary Author Martín Cornejo [facility] March 31, 2023 8:00pm Note Date/Time March 31, 2023 5:48pm [facility] Medical Records Department [address] [place] [address] Emergency Department Summary 03/31/23 MR#: [id number] Acct: [id number] Name: HAYDEE BUSTAMANTE Rep #:[id number] : 1945 77 From: Martín Cornejo DO PCP: Dr. Claudine Durán MD Status:RE G ER Location: ED HPI <MEENU Leger - Last Filed: 03/31/23 19:55> History of Present Illness Chief Complaint: Edema Narrative Narrative: Patient is a 77-year-old female with a long history of lower leg edema, history of COPD, patient is on Coumadin, histoplasmosis, presenting to the [facility] apartment for failure to thrive, worsening [...] to go to a facility for rehab. [facility] <MEENU Leger - Last Filed: 03/31/23 19:55> [facility] Medical History Colitis COPD (chronic obstructive [...] Q24H 03/19/23 [History Last Taken Unknown] vitamins A,C,B-nmaa-trvkeu 2,148 mcg-113 mg-45 mg-17.4 mg tablet (PreserVision [...] <MEENU Leger - Last Filed: 03/31/23 19:55> [facility] Lab Data Labs: Laboratory Results - last 24 hr 03/31/23 18:12 WBC 19.4 H RBC 2.87 L Hgb 8.3 L Hct 24.9 L MCV 86.8 MCH 28.9 MCHC 33.3 RDW Std Deviation 75.1 H RDW Coeff of Catarino 24.1 H Plt Count 95 L MPV 10.4 Immature Gran % (Auto) 1.000 H Neut % (Auto) 90.8 H Lymph % (Auto) 3.0 L Esmeralda % (Auto) 5.0 Eos % (Auto) 0.1 [...] Cornejo, DO - Last Filed: 03/31/23 20:00> [facility] MDM Narrative Medical decision making narrative: Patient [...] hospitalist. This patient was seen with a PA/COLOR MATCHER Individually assessed they patient including history and physical. I have reviewed everything on the chart that is availableand agree with the documentation provided by the PA/COLOR MATCHER including discussion about the assessment, treatment plan, [...] 90.8 H Lymph % (Auto) 3.0 L Esmeralda % (Auto) 5.0 Eos % (Auto) 0.1 [...] to thrive Disposition Disposition: Acute Care Hospital [facility] What to do if you have Problems For any increased pain, shortness of breath, bleeding, nausea or vomiting, chestpain, or any unexpected problems, contact your Primary Care Provider. Call [facility] ([phone]) or report to the closest Emergency Room. Call 911 if necessary. 03/31/231999 <Electronically signed by Martín Cornejo DO> Cosigner Signature (if applicable): 03/31/231954 <Electronically signed by Frederick SORTOC> CC: Dr. Claudine Durán MD ~ Signed [facility] Work Phone: 1(304) 939-820902-07-2024 Discharge summary Author Etienne Thacker [facility] March 28, 2023 8:37pm Note Date/Time March 28, 2023 5 :11pm [facility] Medical Records Department [address] [place] [address] Emergency Department Summary 03/28/23 MR#: [id number] Acct: [id number] Name: HAYDEE BUSTAMANTE Rep #:[id number] : 1945 77 From: Etienne Thacker MD [...] Prior similar symptoms: Yes Recent Illness/Hospitalization: Yes [facility] Medical History Colitis COPD (chronic obstructive pulmonary [...] Q24H 03/19/23 [History Last Taken Unknown] vitamins A,C,U-wkxh-sdcytt 2,148 mcg-113 mg-45 mg-17.4 mg tablet (PreserVision [...] [facility]. Her labs are basically [...] 80.2 H Lymph % (Auto) 7.4 L Esmeralda % (Auto) 9.8 Eos % (Auto) 0.0 [...] 18:09 EST Reading Location ID and State: [facility] / [place] Tel , Service support , Chest x-ray, [...] rhythm rate 81 no acute signs of [place] or ischemia. No significant dysrhythmia. Discharge Plan [...] your Primary Care Provider. Call [facility] ([phone]) or report to the closest Emergency Room. Call 911 if necessary. 03/28/232036 <Electronically signed by Etienne Thacker MD> Cosigner Signature (if applicable): CC: Dr. Claudine Durán MD ~ Signed [facility] Work Phone: 1(158) 582-740402-05-2024 Discharge summary Author Martín Cornejo [facility] March 26, 2023 4:23pm Note Date/Time March 26, 2023 1 :02pm [facility] Medical Records Department [address] [place] [address] Emergency Department Summary 03/26/23 MR#: [id number] Acct: [id number] Name: HAYDEE BUSTAMANTE Rep #:[id number] : 1945 77 From: Martín Cornejo DO PCP: Dr. Claudine Durán MD Status:AD M ADAIR Location: [place] [address] HPI History of Present Illness Chief Complaint: Shortness of Breath Narrative Narrative: 77-year-old female presenting with shortness of breath. She needs placement. She is unable to care for self at home. [facility] due to concern for bowel perforation which [...] So they can discharge her home from [facility]. Patient may need a TAVR in the future. She may need mitral valve repair.. Her creatinine was elevated while she was at [facility]. She was discharged home on Cipro and Flagyl. She will continue itraconazole twice daily. She is given Imodium for diarrhea. He has 4 more days of dexamethasone. She was to hold her HCTZ/irbesartan [facility] Medical History (Updated 03/26/23 @ 15:59 by [...] Q24H 03/19/23 [History Last Taken Unknown] vitamins A,C,L-fuhx-pjapgy 2,148 mcg-113 mg-45 mg-17.4 mg tablet (PreserVision [...] 80.3 H Lymph % (Auto) 6.3 L Esmeralda % (Auto) 9.6 Eos % (Auto) 0.0 [...] your Primary Care Provider. Call [facility] ([phone]) or report to the closest Emergency Room. Call 911 if necessary. 03/26/23 1623 <Electronically signed by Martín Cornejo DO> Cosigner Signature (if applicable): CC: Dr. Claudine Durán MD ~ Signed [facility] Work Phone: 1(887) 366-447002-04-2024 NoteHNO ID: [id number] Author: ARMEN FERNANDEZ, PAULA Service: Nursing Author Type: Registered Nurse Type: Nursing Progress Note Filed: 03/25/2023 08:58 Note Text: Sepsis alert, sound paged, vitals stable, pt stable, waitng for call-back from sound.[facility]02-03-2024 NoteHNO ID: [id number] Author: SHARAN RIVAS MD Service: Hospital Medicine Author Type: Physician Type: Progress Notes Filed: 03/24/2023 13:51 Note Text: DEPARTMENT OF HOSPITAL MEDICINE PROGRESS NOTE Hospital Medicine/Primary Attending: Sharan Rivas MD NIGHT AND WEEKEND COVERAGE: Before 7 pm please page Team color pager After 7pm please page [phone] MEDICATIONS: Current Facility-Administered Medications Medication Dose Route [...] (SPORANOX) 200 mg ORAL BID phenol 1 [place] (CHLORASEPTIC) 1 [place] MUCOUS MEMBRANE (TOPICAL MOUTH AND THROAT) q [...] was found to be COVID-19 positive in [place]. Imaging showed intraperitoneal air and pneumatosis intestinalis and patient was transferred to [facility]. Pulmonology was consulted and patient was started on remdesivir and Decadron for COVID-19. Also started on itraconazole, Cipro and Flagyl. Surgery was involved with no surgical plans. # Pneumatosis intestinalis and pneumoper (more content not included)...[facility]02-03-2024 NoteHNO ID: [id number] Author: MAGAN VILLAFUERTE DO Service: Pulmonary Disease [...] of disseminated histoplasmosis. She is followed in [place], [place]. She has a history of previous [...] She presented to the emergency room at [place] after a vigorous coughing episode and coughing [...] (SPORANOX) 200 mg ORAL BID phenol 1 [place] (CHLORASEPTIC) 1 [place] MUCOUS MEMBRANE (TOPICAL MOUTH AND THROAT) q [...] Supple, no adenopathy; thyroi (more content not included)...[facility]02-02-2024 Miscellaneous Notes* Telephone Encounter - Rachelle Leonard APRN.REGIONAL CONTROLLER - 03/23/2023 5:16 PM EST Please schedule patient to follow with Dr. Hart in 2 months. Thank you documented in this encounterFort [facility]02-[facility]24 NoteHNO ID: [id number] Author: AMERICA RODRIGUEZ RN Service: Care Management Author Type: Registered Nurse Type: Care Mgt Progress Note Filed: 03/23/2023 14:44 Note Text: CARE MANAGEMENT PROGRESS NOTE SERVICE DATE: 03/23/2023 SERVICE TIME: 12:22 PM LOS: 4 days Post-Acute Discharge Planning Patient Goal(s): Be able to go home, General wellness [place] Explained: [place] Given: No Reason Not Given: [...] 23, 2023 TIME: 2:37 PM PAGER/CONTACT #: [phone] NoteHNO ID: [id number] Author: MAGAN VILLAFUERTE DO Service: Pulmonary Disease [...] of disseminated histoplasmosis. She is followed in [place], [place]. She has a history of previous [...] She presented to the emergency room at [place] after a vigorous coughing episode and coughing [...] and pelvis 03/19/2023 Abnorma (more content not included)...[facility]02-02-2024 NoteHNO ID: [id number] Author: SHARAN RIVAS MD Service: Hospital Medicine [...] (SPORANOX) 200 mg ORAL BID phenol 1 [place] (CHLORASEPTIC) 1 [place] MUCOUS MEMBRANE (TOPICAL MOUTH AND THROAT) q [...] histoplasmosis, and VTE on (more content not included)...[facility]02-01-2024 NoteHNO ID: [id number] Author: GENO HART MD Service: Infectious Disease [...] home -Patient can call my office at [phone] to get an appointment for about 3 [...] for recurrent lower extremity DVT, presented to [facility] 03/19/2023 for hemoptysis, going to the [place] ED but then sent here due to [...] be COVID-positive. Interestingly a CAT scan at [place] found pneumatosis intestinalis and intraperitoneal free air comp (more content not included)...[facility]02-01-2024 NoteHNO ID: [id number] Author: MAGAN VILLAFUERTE DO Service: Pulmonary Disease [...] of disseminated histoplasmosis. She is followed in [place], [place]. She has a history of previous [...] She presented to the emergency room at [place] after a vigorous coughing episode and coughing [...] PCR for COVID-19 supposedly reported from [facility]. Chest and abdomen/pelvis reviewed CTA chest 03/19/2023 No pulmonary embolism Prominent reticular no (more content not included)...[facility]02-01-2024 NoteHNO ID: [id number] Author: YAN PEREZ DO Service: General Surgery [...] 21.43 kg/m? Yan Perez DO 03/22/2023 1:52 PM][facility]02-01-2024 NoteHNO ID: [id number] Author: JOSE LUIS CRISTOBAL DO Service: General [...] if in ICU or 2174 if on RNF.[facility]02-01-2024 NoteHNO ID: [id number] Author: SHARAN RIVAS MD Service: Hospital Medicine [...] (SPORANOX) 200 mg ORAL BID phenol 1 [place] (CHLORASEPTIC) 1 [place] MUCOUS MEMBRANE (TOPICAL MOUTH AND THROAT) q [...] and plan: Haydee Weber (more content not included)...[facility]02-01-2024 NoteHNO ID: [id number] Author: PAMELA HALL MD Service: General Surgery [...] 03/22/23 0603/22/23 07 - 03/23/23 0659 Shift 9845-8913 2718-4947 1349-7533 24 Hour Total 6964-2224 9910-0842 8588-3784 24 Hour Total INTAKE IV 300 300 [...] ORAL DIRECTED PRN remdesivir in NaCl 0.9% Vial-Mate/ADD-[place] 100 mg 275 mL 100 mg INTRAVENOUS [...] (SPORANOX) 200 mg ORAL TID phenol 1 [place] (CHLORASEPTIC) 1 [place] MUCOUS MEMBRANE (TOPICAL MOUTH AND THROAT) q [...] 03/07/2015 Overview Note: Dr. Hurley ([facility]) Assessment: 77 year old female with PMH significant for RA (Humira), HTN, h/o disseminated Histoplasmosis, bronchiectasis, VTE (on coumadin), pulmonary nodules, and presenting to the ED today after an episode of hemoptysis at home. CTAP had an incidental finding of a small amount of intraperitoneal air and pneumatosis in the colon for which surgery was consulted. [facility] (more content not included)...[facility] 03-21-2023 NoteHNO ID: [id number] Author: GENO HART MD Service: Infectious Disease [...] for recurrent lower extremity DVT, presented to [facility] 03/19/2023 for hemoptysis, going to the [place] ED but then sent here due to [...] be COVID-positive. Interestingly a CAT scan at [place] found pneumatosis intestinalis and intraperitoneal free air [...] -- 03/21/23 1000 remdesivir in NaCl 0.9% Vial-Mate/ADD-[place] 100 mg 275 mL 100 mg, INTRAVENOUS, EVERY 24 HOURS See Hyperspace for full Linked Orders Report. 03/23/23 0959 03/20/23 1300 itraconazole 200 mg oral liquid (SPORANOX) 200 mg, ORAL, 3 TIMES DAILY 03/23/23 1259 03/19/231999 cipro (more content not included)...[facility] 03-21-2023 NoteHNO ID: [id number] Author: PAMELA HALL MD Service: General Surgery [...] 0659 03/21/23 07 - 03/22/23 0659 Shift 6380-6060 3320-5641 4507-7993 24 Hour Total 2170-4693 4216-3899 1263-9933 24 Hour Total INTAKE IV 1275 1275 [...] Dose Route Frequency remdesivir in NaCl 0.9% Vial-Mate/ADD-[place] 100 mg 275 mL 100 mg INTRAVENOUS [...] (SPORANOX) 200 mg ORAL TID phenol 1 [place] (CHLORASEPTIC) 1 [place] MUCOUS MEMBRANE (TOPICAL MOUTH AND THROAT) q [...] 03/07/2015 Overview Note: Dr. Hurley ([facility]) Assessment: 77 year old female with PMH significant for RA (Humira), HTN, h/o disseminated Histoplasmosis, bronchiectasis, VTE (on coumadin), pulmonary nodules, and presenting to the ED today after an episode of hemoptysis at home. CTAP had an incidental finding of a small amount of intraperitoneal air and pneumatosis in the colon. INR on arrival to [place] was 9. She given Vitamin K and transferred here. Hospital Course/Operations/Procedures: * No surgery found * Plan: Pneumatosis intestinalis and intraperitoneal free air - labs and imaging reviewed - Small amount of air on (more content not included)...[facility]-31-2024 NoteHNO ID: [id number] Author: MAGAN VILLAFUERTE DO Service: Pulmonary Disease [...] of disseminated histoplasmosis. She is followed in [place], [place]. She has a history of previous [...] She presented to the emergency room at [place] after a vigorous coughing episode and coughing [...] PCR for COVID-19 supposedly reported from [facility]. Chest and abdomen/pelvis reviewed CTA chest [...] Right atrial cavity normal (more content not included)...[facility]01-30-2024 NoteHNO ID: [id number] Author: ELÍAS QUINN RN Service: Care Management Author Type: Registered Nurse Type: Care Mgt Initial Assessment Filed: 03/20/2023 16:23 Note Text: CARE MANAGEMENT: ASSESSMENT AND DISCHARGE PLAN SERVICE DATE: March 20, 2023 SERVICE TIME: 4:19 PM PCP: Claudine Durán MD Primary Contact: Extended Emergency Contact Information Primary Emergency Contact: Suzie Araiza ([place]ph[place]) Address: [address] [address] [facility] Relation: Friend Secondary Emergency Contact: Padmini Chang Address: [address] [place] Relation: Friend Admission Status: Inpatient Insurance Provider: [employer] PPO Discharge Planning requested by: Per Department Practice Potential Transition Plans Home Advance Directives Current Advance Directive: None Horticulture Professor Attempted to Assist with AD Completion: Yes [...] wellness, Less pain, Wean off of O2 [place] Explained: [place] Given: No Reason Not Given: [...] 20, 2023 TIME: 4:19 PM CONTACT #: [phone] Center01-30-2024 Note HNO ID: [id number] Author: MAGAN VILLAFUERTE DO Service: Pulmonary Disease [...] of disseminated histoplasmosis. She is followed in [place], [place]. She has a history of previous [...] She presented to the emergency room at [place] after a vigorous coughing episode and coughing [...] PCR for COVID-19 supposedly reported from [facility]. Chest and abdomen/pelvis reviewed CTA chest [...] changes consistent with d (more content not included)...[facility]01-30-2024 NoteHNO ID: [id number] Author: PAMELA HALL MD Service: General Surgery [...] 0659 03/20/23 07 - 03/21/23 0659 Shift 4154-5603 2604-5203 9433-7612 24 Hour Total 1506-4301 6095-6406 0894-1085 24 Hour Total INTAKE IV 300 100 [...] in the colon. INR on arrival to [place] was 9. She given Vitamin K and [...] chemical anticoagulation - INR on arrival to [place] was 9. She given Vitamin K prior to transfer - continue serial abdominal exams - notify general surgery of any acute changes in clinical status D/w Dr. Hall SIGNATURE: Christ Camarena MD PATIENT NAME: Haydee Bustamante DATE: March 20, 2023 TIME: 921 Pager: [phone] Emergency General Surgery Service Pager: For questions [...] with the resident's findi (more content not included)...[facility]01-29[facility]24 Discharge summary Author Bob Elias [facility] March 19, 2023 5:11pm Note Date/Time March 19, 2023 1 0:38am [facility] Medical Records Department [address] [place] [address] Emergency Department Summary 03/19/23 MR#: [id number] Acct: [id number] Name: HAYDEE BUSTAMANTE Rep #:[id number] : 1945 77 From: Bob Amaro PCP: [...] states she has a history of histoplasmosis. [facility] Medical History (Updated 03/19/23 @ 15:03 by [...] (Auto) 68.8 Lymph % (Auto) 15.1 L Esmeralda % (Auto) 10.9 H Eos % (Auto) [...] bank resources here. Patient requested transfer to [facility]. Transfer line was contacted. Case was discussed with Dr. Lugo at [facility]. He accepted the patient and requested patient be transferred to the emergency department there. Case was discussed with emergency department physician. He accepted the patient to be transferred there. Patient was ordered type and screen. Patient was also ordered a unit of fresh frozen plasma. Patient will be transferred to [facility]. Patient and family understood and were agreeable with the plan. All questions were answered. Critical Care Time Critical Care Time: Yes Critical care time (excluding procedures): 30-74 minutes (38), Including time spent:, Discussing w/Patient &/or Family/Blast Furnace Keeper Helper, Discussing w/Consultants, Arranging Admission or Transfer and [...] Disposition Disposition: Acute Care Hospital Discharge Location: [facility] What to do if you have Problems For any increased pain, shortness of breath, bleeding, nausea or vomiting, chestpain, or any unexpected problems, contact your Primary Care Provider. Call [facility] ([phone]) or report to the closest Emergency Room. Call 911 if necessary. 03/19/23 1711 <Electronically signed by Bob Elias DO> Cosigner Signature (if applicable): CC: Dr. Claudine Durán MD ~ Signed [facility] Work Phone: [phone] 704-705312-20-2023 History of Present illness Narrative* Kathleen Alegria, [...] 07, 2023 11:06 AM documented in this encounterFort Hamilton Hospital12-20-2023 History of Present illness Narrative* Adri Zaragoza, CONNIE.REGIONAL CONTROLLER - 02/07/2023 10:52 AM EST Subjective HPI [...] Anemia Bone marrow involvement with histoplasmosis Bronchiectasis ([facility]) COPD (chronic obstructive pulmonary disease) ([facility]) Disseminated histoplasmosis Colitis, immunosuppression, 01/2018. Diverticulosis of colon (without mention of hemorrhage) Diverticulosis DVT, recurrent, lower extremity, acute ([facility]) 12/10/2014 Esophageal reflux Hiatal hernia 02/25/2018 Hypertension Lung nodule Personal history of unspecified urinary disorder Rheumatoid arthritis involving multiple sites with positive rheumatoid factor ([facility]) 03/07/2015 Dr. Hurley ([facility]) Unspecified hemorrhoids without mention of complication [...] SPINE FUSN,POST INTERBODY 2011 Dr. Armando at [facility]. Diskectomy and laminectomy PAST SURGICAL HISTORY OF [...] fluticasone (FLONASE) 50 mcg/actuation nasal spray^Use 1 [place] in each nostril once daily.^Disp: 3 Each^Rfl: [address] (PROTONIX) 40 mg tablet^Take 1 tablet by mouth once daily.^Disp: 90 tablet^Rfl: 3 albuterol HFA (PROAIR HFA) 90 mcg/actuation inhaler^Inhale 2 Puffs as instructed every 4 hours as needed.^Disp: 1 Each^Rfl: 2 vit A,C,A-Bqzq-Hwydty (OCUVITE PRESERVISION) 2,148 mcg-113 mg-45 mg-17.4mg tab^Take [...] A/B & RSV NAAT, ROUTINE Adri Zaragoza APRN.REGIONAL CONTROLLER documented in this encounterFort Hamilton Hospital12-15-2023 History of Present illness Narrative* Melissa Means RN - 02/02/2023 3:19 PM EST pcp agrees with information * Melissa Means RN - 02/02/2023 9:47 AM EST patient had inr completed at [facility] patients inr is 2.1 (patients inr [...] for follow up INR. documented in this encounterFort Hamilton Hospital12-06-2023 Miscellaneous Notes* Telephone Encounter - Magalie Ngo LPN - 01/24/2023 9:02 AM EST GEREMIAS 07/20/22 Patient phones requesting refills as follows: Requested Prescriptions Pending Prescriptions Disp Refills budesonide-formoterol (SYMBICORT) 160-4.5 mcg/actuation inhaler [Pharmacy Med Name: BUDESONIDE/FORMINHALER 10.2GM 160/4.5MCG] 30.6 g 3 Sig: USE 2 INHALATIONS TWICE A DAY INSTRUCTED Please review and advise. Magalie Ngo LPN documented in this encounterFort Hamilton Hospital11-29-2023 History of Present illness Narrative* Melissa Means RN - 01/17/2023 3:02 PM EST pcp agrees with information * Melissa Means RN - 01/17/2023 1:55 PM EST patient had inr completed at [facility] patients inr is 1.9 (patients inr [...] reading since dose change documented in this encounterFort Hamilton Hospital11-22-2023 History of Present illness Narrative* Melissa Means RN - 01/10/2023 3:47 PM EST pcp agrees with information PATIENT NOTIFIED OF INFORMATION * Melissa Means RN - 01/10/2023 1:38 PM EST patient had inr completed at [facility] patients inr is 2.9 (patients inr [...] and advise on recommendation documented in this encounterFort Hamilton Hospital11-16-2023 History of Present illness Narrative* Yesenia Weinstein LPN - 01/04/2023 4:24 PM EST Patient notified of providers message and verbalized understanding. * Jimbo Swanson APRN.ROCKBOARD LATHER - 01/04/2023 3:29 PM EST OK to change coumadin to 7.5mg Tues,Sat,Sun and 5mg all other days and recheck INR in 1 week * Melissa Means RN - 01/04/2023 11:34 AM EST patient had inr completed at [facility] patients inr is 2.6 [...] and advise on recommendation documented in this encounterFort Hamilton Hospital11-16-2023 Instructions* Patient Instructions* Jimbo Swanson APRN.CNS - 01/04/2023 10:50 AM EST It appears that you have better coverage for the RSV vaccine at your local pharmacy. documented in this encounterFort Hamilton Hospital11-16-2023 History of Present illness Narrative* Jimbo [...] and COPD. HPI excerpted from previous visits: Recruiting Internship: Florence Collins MD, last seen July 20, 2022. Seen for follow-up of lung nodules bronchiectasis. Noted are a likely etiology for underlying bronchiectasis. Noted new nodularity of lung,likely represents inflammatory nodules. Will need follow-up CT. No this may improve with bronchopulmonary hygiene. Spiriva and intermittent albuterol has helped with cough. Stable. Porcelain Buildup Assistant: William Messina BAV, aortic stenosis , last seen in cardiology August 29, 2022 by SANTY Love. Continued on current treatments unchanged. Follow-up echo advised, not yet scheduled.. Manager Power: [facility]. Continues with methotrexate, Humira.seen by [...] Occasional bruising. [facility] coumadin clinic. Referred by drop hammer set up operator to see orthopedic physician for her hip. [...] fluticasone (FLONASE) 50 mcg/actuation nasal spray^Use 1 [place] in each nostril once daily.^Disp: 3 Each^Rfl: [address] (PROTONIX) 40 mg tablet^Take 1 tablet by mouth once daily.^Disp: 90 tablet^Rfl: 3 albuterol HFA (PROAIR HFA) 90 mcg/actuation inhaler^Inhale 2 Puffs as instructed every 4 hours as needed.^Disp: 1 Each^Rfl: 2 vit A,C,W-Spes-Lbfepv (OCUVITE PRESERVISION) 2,148 mcg-113 mg-45 mg-17.4mg tab^Take [...] hemorrhage) Diverticulosis DVT, recurrent, lower extremity, acute ([facility]) 12/10/2014 Esophageal reflux Hiatal hernia 02/25/2018 Hypertension Lung nodule Personal history of unspecified urinary disorder Rheumatoid arthritis involving multiple sites with positive rheumatoid factor (HCC) 03/07/2015 Dr. Hurley ([facility]) Unspecified hemorrhoids without mention of complication [...] to get at pharmacy discussed risks - [email or web address] COVID-19 VACCINE ( [place]) AGE 12+ YR in office today Jimbo Swanson APRN.CNS Medical Decision Making: Problems: Low: 2+ self-limited or minor problems Risk: Moderate: Drug management Medical Decision Making Level: 3 - Low documented in this encounterFort Hamilton Hospital11-01-2023 Miscellaneous Notes* Telephone Encounter - Maritza [...] you. Maritza Preston LPN. documented in this encounterFort Hamilton Hospital10-26-2023 History of Present illness Narrative* Jimbo Swanson APRN.CNS - 12/14/2022 12:11 PM EDT Continue with Coumadin dose unchanged and check INR in 2 or 3 weeks * Melissa Means RN - 12/14/2022 10:25 AM EDT patient had inr completed at [facility] patients inr is 2.2 (patients inr [...] patient declines blood draw documented in this encounterFort Hamilton Hospital10-19-2023 History of Present illness Narrative* Yesenia [...] AM EDT patient had inr completed at [facility] patients inr is 2.5 (patients inr range [...] and advise on recommendation documented in this encounterFort Hamilton Hospital10-02-2023 Miscellaneous Notes* Letter - Coordinator, Mammography - 11/20/2022 9:52 AM EDT November 20, 2022 PID: [id number] Haydee Bustamante [address] [place] [id number] Dear Ms. Bustamante, We are pleased to [...] report will be [facility] as part of your permanent medical record and are available for your continuing care. Thank you for allowing us to help in meeting your health care needs. Sincerely, Dr. Basurto Interpreting Radiologist [facility] (Normal over 40) documented in this encounterFort Hamilton Hospital09-29-2023 History of Present illness Narrative* Aide [...] 17, 2022 9:00 AM documented in this encounterFort Hamilton Hospital09-29-2023 Miscellaneous Notes* Result Encounter Note - Jimbo Swanson APRN.CNS - 11/17/2022 9:30 AM EDT Negative, 1 year screening follow-up documented in this encounterFort Hamilton Hospital09-21-2023 History of Present illness Narrative* Jimbo Swanson APRN.CNS - 11/09/2022 4:41 PM EDT Continue Coumadin dose unchanged and check INR in 4 weeks * Melissa Means RN - 11/09/2022 10:27 AM EDT patient had inr completed at [facility] patients inr is 1.9 (patients inr [...] follow u p INR. documented in this encounterFort Hamilton Hospital09-21-2023 Miscellaneous Notes* Telephone Encounter - Melissa Means RN - 11/09/2022 10:29 AM EDT patients orders for coumadin clinic inr's has at this time. new order has been pended for approval if possible so that patient can continue to get inr's completed thru the coumadin clinic. coumadin clinic nurse only needs called if order can not be approved. documented in this encounterFort Hamilton Hospital09-21-2023 History of Present illness Narrative* Ron Veras MD - 11/09/2022 8:50 AM EDT Ron Veras MD Department of Orthopaedics Orthopaedics [address] [facility] [address] Dept: [phone] Dept November 09, 2022 CHIEF COMPLAINT: New [...] acute pathology. 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 Cement Loader: KRYSTAL Transcribe Date/Time: Dec 31 2021 11:55A [...] Anemia Bone marrow involvement with histoplasmosis Bronchiectasis ([facility]) COPD (chronic obstructive pulmonary disease) ([facility]) Disseminated histoplasmosis Colitis, immunosuppression, 01/2018. Diverticulosis of colon (without mention of hemorrhage) Diverticulosis DVT, recurrent, lower extremity, acute ([facility]) 12/10/2014 Esophageal reflux Hiatal hernia 02/25/2018 Hypertension Lung nodule Personal history of unspecified urinary disorder Rheumatoid arthritis involving multiple sites with positive rheumatoid factor ([facility]) 03/07/2015 Dr. Hurley ([facility]) Unspecified hemorrhoids without mention of complication [...] SPINE FUSN,POST INTERBODY 2012 Dr. Armando at [facility]. Diskectomy and laminectomy PAST SURGICAL HISTORY OF [...] (FLONASE) 50 mcg/actuation nasal spray Use 1 [place] in each nostril once daily. pantoprazole DR (PROTONIX) 40 mg tablet Take 1 tablet by mouth once daily. albuterol HFA (PROAIR HFA) 90 mcg/actuation inhaler Inhale 2 Puffs as instructed every 4 hours as needed. vit A,C,F-Ybqz-Gmeatn (OCUVITE PRESERVISION) 2,148 mcg-113 mg-45 mg-17.4mg tab [...] physician via [place] mail. Twyla Cuevas [address] [phone] Claudine Durán MD [address] [phone] Ron Veras MD documented in this encounterFort Hamilton Hospital09-14-2023 Miscellaneous Notes* Telephone Encounter - Isabella [...] Pended. Melanie Mcgregor RN documented in this encounterFort Hamilton Hospital09-12-2023 Miscellaneous Notes* Telephone Encounter - Charissa [...] patient. Charissa Perez LPN documented in this encounterFort Hamilton Hospital09-12-2023 Miscellaneous Notes* Telephone Encounter - Ashly Shay RN - 10/31/2022 8:02 AM EDT Patient calling with request for medication/refill: Patient/caregiver requesting refill of Warfarinbe called to [facility] at online.. Patient denies any new or worsening symptoms of which a provider is not aware: Yes. Patient just discovered she will run out of the below rx on . Is requesting a short term supply be sent to [facility] in [place] and the remainder sent to [facility]. Has been taking medication as ordered. warfarin (COUMADIN) 5 mg tablet 30 tablet 3 07/11/2022 Sig: Take 7.5 mg , Sun,Sun, Sun, Sun; and 5 mg on Sunday and Sunday Sent to pharmacy as: warfarin (COUMADIN) 5 mg tablet documented in this encounterFort Hamilton Hospital09-08-2023 History of Present illness Narrative* Jimbo Swanson, DIAMOND DRILLER HELPER.ROCKBOARD LATHER - 10/27/2022 9:20 AM EDT SUBJECTIVE: BP [...] bicuspid valve, lung nodule bronchiectasis and COPD. Recruiting Internship: Florence Collins MD, last seen July 20, 2022. Seen for follow-up of lung nodules bronchiectasis. Noted are a likely etiology for underlying bronchiectasis. Noted new nodularity of lung,likely represents inflammatory nodules. Will need follow-up CT. No this may improve with bronchopulmonary hygiene. Spiriva and intermittent albuterol has helped with cough. Stable. Porcelain Buildup Assistant: William Messina BAV, aortic stenosis , last seen in cardiology August 29, 2022 by SANTY Love. Continued on current treatments unchanged. Follow-up echo advised, not yet scheduled.. Manager Power: [facility]. Continues with methotrexate, Humira.seen by Dr. Jane Montoya 06/26/2022 for RA, osteoporosis, degenerative disc disease, arthritis of foot, osteoarthritis of bilateral hands. DEXA scan completed, showed osteoporosis. All yes trying recommended restart of Reclast. Weight: stable Exercise: walking miles most days, feeling well with this . 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 [...] pain, currently taking gabapentin. Plans to see design engineering specialist, referred by drop hammer set up operator. Referred by drop hammer set up operator to see orthopedic physician for her hip. [...] fluticasone (FLONASE) 50 mcg/actuation nasal spray^Use 1 [place] in each nostril once daily.^Disp: 3 Each^Rfl: [...] hours as needed.^Disp: 1 Each^Rfl: 2 vit A,C,L-Czhe-Jxrkxa (OCUVITE PRESERVISION) 2,148 mcg-113 mg-45 mg-17.4mg tab^Take [...] hemorrhage) Diverticulosis DVT, recurrent, lower extremity, acute ([facility]) 12/10/2014 Esophageal reflux Hiatal hernia 02/25/2018 Hypertension Lung nodule Personal history of unspecified urinary disorder Rheumatoid arthritis involving multiple sites with positive rheumatoid factor (HCC) 03/07/2015 Dr. Hurley ([facility]) Unspecified hemorrhoids without mention of complication [...] ICD9: 724.3, ICD10: M54.41 Plans to see design engineering specialist 6. Hip pain, acute, left - ICD9: 719.45, ICD10: M25.552 7. Rheumatoid arthritis involving multiple sites with positive rheumatoid factor (HCC) - ICD9: 714.0, ICD10: M05.79 Followed by [facility] 8. Bronchiectasis without complication (HCC) [...] Level: 4 - Moderate documented in this encounterFort Hamilton Hospital09-08-2023 Instructions* Patient Instructions* Jimbo Swanson APRN.CNS - 10/27/2022 9:01 AM EDT Consider getting new COVID booster when it becomes available either in clinic or at pharmacy. documented in this encounterFort Hamilton Hospital09-07-2023 History of Present illness Narrative* Jimbo Swanson APRN.CNS - 10/26/2022 4:38 PM EDT Continue with Coumadin dose unchanged and check INR in 2 weeks * Melissa Means RN - 10/26/2022 12:14 PM EDT patient had inr completed at [facility] patients inr is 1.7 (patients inr [...] reading since dose change documented in this encounterFort Hamilton Hospital08-24-2023 History of Present illness Narrative* Maritza [...] PM EDT patient had inr completed at [facility] patients inr is 1.5 (patients inr [...] and advise on recommendation documented in this encounterFort Hamilton Hospital08-21-2023 Miscellaneous Notes* Telephone Encounter - Claudine [...] Thank you. CARMEN Viveros documented in this encounterFort Hamilton Hospital08-07-2023 Miscellaneous Notes* Telephone Encounter - Will [...] year. Thanks ~ JJ documented in this encounterFort Hamilton Hospital07-28-2023 Miscellaneous Notes* Telephone Encounter - Muna [...] dose and pt findings. documented in this encounterFort Hamilton Hospital07-20-2023 History of Present illness Narrative* Melissa Means RN - 09/07/2022 4:07 PM EDT PATIENT NOTIFIED OF INFORMATION * Jimbo Swanson APRN.CNS - 09/07/2022 3:49 PM EDT Okay for 5 mg Coumadin Sunday and 7.5 mg all other days. Recheck INR in 1 week * Melissa Means RN - 09/07/2022 11:59 AM EDT patient had inr completed at [facility] patients inr is 2.4 (patients inr [...] weeks patient has been scheduled at that [facility] for an inr follow up 09/14/22 (order is already in place) please review and advise on recommendation documented in this encounterFort Hamilton Hospital07-11-2023 Instructions* Patient Instructions* Rachelle Schulte APRN.CNP [...] up in 6 months documented in this encounterFort Hamilton Hospital07-11-2023 History of Present illness Narrative* Rachelle Schulte APRN.CNP - 08/29/2022 9:30 AM EDT Images from the original note were not included. [facility] [place] [facility] Department of Cardiovascular Medicine SECTION [...] which included preparing to see the patient, [id number] patient care, completing clinical documentation, performing a [...] prior to the follow up. Rachelle Schulte APRN.[facility] Cardiology Nurse Practitioner Section of Regional Cardiology [place] Dept of Cardiovascular Medicine [facility] [place] [address] [address] Office Office August 29, 2022 7:46 AM This note was partially generated using [employer] voice recognition system and may contain errors [...] nodule with faint calcifications suggesting calcified granuloma. [facility] Trans[facility] Date/Time: Jul 24 2022 [...] Bronchiectasis (HCC) COPD (chronic obstructive pulmonary disease) ([facility]) Disseminated histoplasmosis Colitis, immunosuppression, 01/2018. Diverticulosis of colon (without mention of hemorrhage) Diverticulosis DVT, recurrent, lower extremity, acute ([facility]) 12/10/2014 Esophageal reflux Hiatal hernia 02/25/2018 Hypertension Lung nodule Personal history of unspecified urinary disorder Rheumatoid arthritis involving multiple sites with positive rheumatoid factor ([facility]) 03/07/2015 Dr. Hurley ([facility]) Unspecified hemorrhoids without mention of complication [...] and ROS obtained by others. Rachelle Schulte APRN.REGIONAL CONTROLLER CURRENT MEDICATIONS: Current Outpatient Medications Medication Sig budesonide-formoterol (SYMBICORT) 160-4.5 mcg/actuation inhaler Inhale 2 Puffs as instructed twice daily. fluticasone (FLONASE) 50 mcg/actuation nasal spray Use 1 [place] in each nostril once daily. warfarin (COUMADIN) 5 mg tablet Take 7.5 mg , Sun,Sun, Sun, Sun; and 5 mg on Sunday and Sunday pantoprazole DR (PROTONIX) 40 mg tablet Take 1 tablet by mouth once daily. albuterol HFA (PROAIR HFA) 90 mcg/actuation inhaler Inhale 2 Puffs as instructed every 4 hours as needed. vit A,C,Y-Hxkc-Vwtdvc (OCUVITE PRESERVISION) 2,148 mcg-113 mg-45 mg-17.4mg tab [...] mL INTRAVENOUS DIRECTED PRN documented in this encounterFort Hamilton Hospital06-27-2023 Miscellaneous Notes* Telephone Encounter - Magalie Ngo LPN - 08/15/2022 10:20 AM EDT GEREMIAS 07/20/22 Patient phones requesting refills as follows: Requested Prescriptions Pending Prescriptions Disp Refills budesonide-formoterol (SYMBICORT) 160-4.5 mcg/actuation inhaler Sig: Inhale as instructed twice daily. Please review and advise. Magalie Ngo LPN documented in this encounterFort Hamilton Hospital06-25-2023 Miscellaneous Notes* Telephone Encounter - Claudine [...] now. Bakari Catalan LPN documented in this encounterFort Hamilton Hospital06-01-2023 History of Present illness Narrative* Florence Collins MD - 07/20/2022 9:30 AM EDT Images from the original note were not included. . [facility] [place] Note Patient name: Haydee Bustamante PCP: Claudine Durán MD CC: Follow-up chest CT HPI: Haydee Bustamante 77 year old female former 10 pack year smoker with PMH significant for RA (MTX, Humira), HTN, h/o disseminated Histoplasmosis, bronchiectasis, , VTE, pulmonary nodules, who presents for follow-up. Current inhaled therapy with Symbicort and Spiriva. At [facility] with me, she was a newpatient [...] DATE OF EXAM: Jul 20 2022 9:22AM [facility] 0541 - CT CHEST WO [...] abdomen within the limits of noncontrast technique.. Fish And Wildlife Warden (topogram) images: IVC filter present IMPRESSION: Findings [...] hemorrhage) Diverticulosis DVT, recurrent, lower extremity, acute ([facility]) 12/10/2014 Esophageal reflux Hiatal hernia 02/25/2018 Hypertension Lung nodule Personal history of unspecified urinary disorder Rheumatoid arthritis involving multiple sites with positive rheumatoid factor ([facility]) 03/07/2015 Dr. Hurley ([facility]) Unspecified hemorrhoids without mention of complication [...] hours as needed.^Disp: 1 Each^Rfl: 2 vit A,C,F-Zdos-Wvasoo (OCUVITE PRESERVISION) 2,148 mcg-113 mg-45 mg-17.4mg tab^Take [...] fluticasone (FLONASE) 50 mcg/actuation nasal spray^Use 1 [place] in each nostril once daily.^Disp: 3 Each^Rfl: [...] SPINE FUSN,POST INTERBODY 2011 Dr. Armando at [facility]. Diskectomy and laminectomy PAST SURGICAL HISTORY OF [...] her underlying bronchiectasis Florence Collins MD [facility] [place] documented in this encounterFort Hamilton Hospital06-01-2023 History of Present illness Narrative* Faviola [...] 20, 2022 9:35 AM documented in this encounterFort Hamilton Hospital05-11-2023 History of Present illness Narrative* Jimbo Swanson APRN.CNS - 06/29/2022 1:52 PM EDT Continue with Coumadin dosing unchanged and check INR in 2 weeks * Melissa Means RN - 06/29/2022 10:28 AM EDT patient had inr completed at [facility] patients inr is 2.1 (patients inr [...] reading since dose change documented in this encounterFort Hamilton Hospital04-04-2023 Miscellaneous Notes* Telephone Encounter - Claudine [...] from Dr Rani Cowart's office [facility] states they received a signed clearance [...] is scheduled for surgery tomorrow morning. PH: [phone] X [phone] FAX: [phone]. Maricarmen Jacobs LPN documented in this encounterFort Hamilton Hospital03-16-2023 History of Present illness Narrative* Jimbo Swanson APRN.TYLOR - 05/04/2022 12:54 PM EDT Continue Coumadin dose unchanged and check INR in 1 month * Melissa Means RN - 05/04/2022 10:26 AM EDT patient had inr completed at [facility] patients inr is 2.0 (patients inr [...] for follow up INR. documented in this encounterFort Hamilton Hospital02-16-2023 History of Present illness Narrative* Jimbo Swanson APRN.CNS - 04/06/2022 12:24 PM EST Continue with Coumadin dose unchanged and check INR in 4 weeks * Melissa Means RN - 04/06/2022 9:45 AM EST patient had inr completed at [facility] patients inr is 2.0 (patients inr [...] for follow up INR. documented in this encounterFort Hamilton Hospital02-09-2023 History of Present illness Narrative* Melissa [...] AM EST patient had inr completed at [facility] patients inr is 2.3 (patients inr [...] up inr on 04/06/22 documented in this encounterFort Hamilton Hospital01-23-2023 History of Present illness Narrative* Claudine Durán MD - 03/13/2022 10:41 AM EST This note was created using Reconnexter. Subjective Haydee Bustamante is a 76 year old female. Patient presents with: 4 month follow up SUBJECTIVE: Haydee Bustamante is a 76 year old year old lady here today for 4 month follow up appointment for reviewof medical conditions. Following with eye doctor. Has early macular degeneration. Given glasses for it. Having foot surgery at [facility] May 19. Told will be extensive--straighten [...] hemorrhage) Diverticulosis DVT, recurrent, lower extremity, acute ([facility]) 12/10/2014 Esophageal reflux Hiatal hernia 02/25/2018 Hypertension Personal history of unspecified urinary disorder Rheumatoid arthritis involving multiple sites with positive rheumatoid factor ([facility]) 03/07/2015 Dr. Hurley ([facility]) Unspecified hemorrhoids without mention of complication Hemorrhoids Current Outpatient Medications Medication Sig naproxen (NAPROSYN) 500 mg tablet Take 1 tablet by mouth twice daily as needed. Take with food gabapentin (NEURONTIN) 300 mg capsule Take 1 capsule by mouth twice daily. fluticasone (FLONASE) 50 mcg/actuation nasal spray Use 1 [place] in each nostril once daily. tiotropium bromide [...] factor (HCC) M05.79 5. COPD without exacerbation ([facility]) J44.9 6. Bronchiectasis without complication ([facility]) J47.9 7. Acquired hammertoe of [...] and as needed for preop eval for solutions architect. Noted that has not needed bridging Lovenox when has been off coumadin. Continue present management with anticoagulation. .BP controlled. Continue present management. Claudine Durán MD documented in this encounterFort Hamilton Hospital12-15-2022 History of Present illness Narrative* Jimbo Swanson APRN.CNS - 02/02/2022 1:32 PM EST Continue with Coumadin dose unchanged check INR in 4 weeks * Melissa Means RN - 02/02/2022 10:49 AM EST patient had inr completed at [facility] patients inr is 2.0 (patients inr [...] for follow up INR. documented in this encounterFort Hamilton Hospital11-29-2022 Miscellaneous Notes* Telephone Encounter - Geni [...] advise. Geni Cintron LPN documented in this encounterFort Hamilton Hospital11-23-2022 Miscellaneous Notes* Telephone Encounter - Lynne Mann LPN - 01/11/2022 9:09 AM EST Spoke with pt and information listed below given. Pt verbalizes understanding. She will get the labs when they are due. Lynne Mann LPN * Telephone Encounter - Claudine Durán MD - 01/11/2022 8:14 AM EST Patient gets labs done for drop hammer set up operator so labs are up to date The [...] you. Lynne Mann LPN documented in this encounterFort Hamilton Hospital11-17-2022 History of Present illness Narrative* Melissa Means RN - 01/05/2022 4:[address] haynes he agrees with information * Melissa Means RN - 01/05/2022 1:09 PM EST patient had inr completed at [facility] patients inr is 2.2 (patients inr [...] follow u p INR. documented in this encounterFort Hamilton Hospital11-12-2022 History of Present illness Narrative* Katarzyna [...] 31, 2021 11:45 AM documented in this encounterFort Hamilton Hospital11-03-2022 History of Present illness Narrative* Melissa [...] AM EDT patient had inr completed at [facility] patients inr is 1.4 (patients inr [...] up inr on 01/05/22 documented in this encounterFort Hamilton Hospital10-11-2022 History of Present illness Narrative* Florence Collins MD - 11/29/2021 10:00 AM EDT Images from the original note were not included. . [facility] [place] [facility] Patient name: Haydee Bustamante PCP: Claudine Durán MD CC: Follow-up lung disease HPI: Haydee Bustamante 76 year old female former [id number] smoker having quit in 1989 with PMH [...] factor (HCC) 03/07/2015 Dr. Hurley ([facility]) Unspecified hemorrhoids without mention of complication Hemorrhoids ALLERGIES Allergen Reactions Penicillins Hives fluticasone (FLONASE) 50 mcg/actuation nasal spray^Use 1 [place] in each nostril once daily.^Disp: 3 Each^Rfl: [...] SPINE FUSN,POST INTERBODY 2011 Dr. Armando at [facility]. Diskectomy and laminectomy PAST SURGICAL HISTORY OF [...] treatment per rheumatology Florence Collins MD [facility] [place] documented in this encounterFort Hamilton Hospital10-06-2022 Miscellaneous Notes* Telephone Encounter - Pili Burgos - 11/24/2021 10:37 AM EDT error documented in this encounterFort Hamilton Hospital09-22-2022 History of Present illness Narrative* Jimbo Swanson APRN.ROCKBOARD LATHER - 11/10/2021 9:20 AM EDT SUBJECTIVE: BP [...] and COPD. HPI excerpted from previous visit: Porcelain Buildup Assistant: William GOTTI, aortic stenosis - has 01/2021 appt Recruiting Internship: Mirian Medrano / Johanna Mariscal 6 month follow up with PFT 05/2020 Infectious disease:Ayanna Schulte -histoplasmosis on Humira -follow-up in 6 months 09/2019 Manager Power:: Today reports had toe infection has completely healed. States that solutions architect discussed possible amputation of toe but would prefer not to go that route. May see an alternate solutions architect at [facility]. States took blood pressure medication [...] 12 mos RA: controlled currently, following with drop hammer set up operator. OAC: no bleeding difficulties. Occasional bruising. Spiriva [...] fluticasone (FLONASE) 50 mcg/actuation nasal spray^Use 1 [place] in each nostril once daily.^Disp: 3 Bottle^Rfl: [...] factor (HCC) 03/07/2015 Dr. Hurley ([facility]) Unspecified hemorrhoids without mention of complication [...] Abs Lymph 1.00 - 4.00 k/uL 1.64 Esmeralda% % 8.0 Abs Esmeralda <0.87 k/uL 0.60 Eosin% % 2.7 Abs [...] (HCC) - ICD9: 496, ICD10: J44.9 - [id number] BL 3. Encounter for immunization - ICD9: V03.89, ICD10: Z23 - Differential-[employer] COVID-19 BIVALENT BOOSTER VACCINE, AGE 12+ YR - INFLUENZA SEASONAL QUADRIVALENT HIGH DOSE AGE 65+ 4. Gastroesophageal reflux disease without esophagitis - ICD9: 530.81, ICD10: K21.9 5. Bronchiectasis without complication (HCC) - ICD9: 494.0, ICD10: J47.9 6. COPD without exacerbation (HCC) - ICD9: 496, ICD10: J44.9 7. Aortic stenosis with bicuspid valve - ICD9: 746.3, 746.4, ICD10: Q23.0, Q23.1 Jimbo Swanson APRN.ROCKBOARD LATHER] Jimbo Swanson APRN.CNS Medical Decision Making: Problems: Moderate: 1+ chronic illnesses with change and 2+ stable chronic illnesses Risk: Moderate: Drug management Medical Decision Making Level: 4 - Moderate documented in this encounterFort Hamilton Hospital09-21-2022 Miscellaneous Notes* Telephone Encounter - Claudine [...] can not be approved. documented in this encounterFort Hamilton Hospital09-20-2022 Miscellaneous Notes* Telephone Encounter - Ruby [...] you. Ruby Tobin RN documented in this encounterFort Hamilton Hospital09-13-2022 Instructions* Patient Instructions* Chacho Louise - 11/01/2021 9:29 AM EDT Your ulceration is now healed Ok to continue with padding as needed F/u as needed documented in this encounterFort Hamilton Hospital09-13-2022 History of Present illness Narrative* Chacho [...] involving multiple sites with positive rheumatoid factor ([facility]) 03/07/2015 Dr. Hurley ([facility]) Unspecified hemorrhoids without mention of complication [...] (FLONASE) 50 mcg/actuation nasal spray Use 1 [place] in each nostril once daily. (Patientnot taking: [...] SPINE FUSN,POST INTERBODY 2011 Dr. Armando at [facility]. Diskectomy and laminectomy PAST SURGICAL HISTORY OF [...] Has stopped wrapping it. documented in this encounterFort Hamilton Hospital09-08-2022 History of Present illness Narrative* Melissa Means RN - 10/27/2021 11:06 AM EDT patient had inr completed at [facility] patients inr is 1.6 (patients inr [...] for follow up INR. documented in this encounterFort Hamilton Hospital08-30-2022 Instructions* Patient Instructions* Chacho Louise - 10/18/2021 9:[address] aquacel on ulceration daily Place lambs wool or guaze horizontally between the interspace Secure lambs wool or guaze with daniella wrap or tape Wear surgical shoe or wide sneaker or even sandal to avoid pressure on 5th toe documented in this encounterFort Hamilton Hospital08-30-2022 History of Present illness Narrative* Chacho [...] hemorrhage) Diverticulosis DVT, recurrent, lower extremity, acute ([facility]) 12/10/2014 Esophageal reflux Hiatal hernia 02/25/2018 Hypertension Personal history of unspecified urinary disorder Rheumatoid arthritis involving multiple sites with positive rheumatoid factor ([facility]) 03/07/2015 Dr. Hurley ([facility]) Unspecified hemorrhoids without mention of complication [...] (FLONASE) 50 mcg/actuation nasal spray Use 1 [place] in each nostril once daily. (Patientnot taking: [...] SPINE FUSN,POST INTERBODY 2011 Dr. Armando at [facility]. Diskectomy and laminectomy PAST SURGICAL HISTORY OF [...] Louise DPM Podiatry [address] [place] [address] Dept: [phone] Dept * Imelda Quijano LPN - 10/18/2021 8:48 AM EDT AMB ROOMING INTAKE FLOWSHEET DATA Pain Pain Level: 4 Pain Location: Toe Description: Sharp, Raw, Sore Duration Amount of Time: 2 Duration Units: Months Frequency: Intermittent Intervention/Comfort measure: Reposition, Relaxation Patient presents with: Right Foot - Established Patient, Follow Up, Pain, Blister Imelda Quijano LPN documented in this encounterFort Hamilton Hospital08-30-2022 Miscellaneous Notes* Telephone Encounter - Muna [...] Value 09/29/2021 2.0 Please advise. Thank you. Muan Porter RN documented in this encounterFort Hamilton Hospital08-24-2022 History of Present illness Narrative* RT [...] 12, 2021 10:06 AM documented in this encounterFort Hamilton Hospital08-24-2022 History of Present illness Narrative* Lucero [...] 12, 2021 9:56 AM documented in this encounterFort Hamilton Hospital08-11-2022 History of Present illness Narrative* Jimbo Swanson APRN.CNS - 09/29/2021 1:52 PM EDT Continue current Coumadin dose unchanged and check INR in 4 weeks * Melissa Means RN - 09/29/2021 1:20 PM EDT patient had inr completed at [facility] patients inr is 2.0 (patients inr [...] for follow up INR. documented in this encounterFort Hamilton Hospital08-02-2022 Instructions* Patient Instructions* Jimbo Swanson APRN.CNS - 09/20/2021 1:55 PM EDT Keep your toe clean dry and . Was with soap and water daily, dry thoroughly. Use lambswool between toes. Avoid tight shoes documented in this encounterFort Hamilton Hospital08-02-2022 History of Present illness Narrative* Jimbo [...] and COPD. 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 Histoplasmosis: notes resolved symptoms. OAC: no bleeding difficulties. Occasional bruising. Spiriva and intermittent albuterol has helped with cough. Presents today for foot lesion. She notes she is been wearing tight shoes for a [employer] production at [facility] for about a month. She [...] (FLONASE) 50 mcg/actuation nasal spray Use 1 [place] in each nostril once daily. econazole (SPECTAZOLE) [...] factor (HCC) 03/07/2015 Dr. Hurley ([facility]) Unspecified hemorrhoids without mention of complication [...] Abs Lymph 1.00 - 4.00 k/uL 1.64 Esmeralda% % 8.0 Abs Esmeralda <0.87 k/uL 0.60 Eosin% % 2.7 Abs [...] Level: 3 - Low documented in this encounterFort Hamilton Hospital07-18-2022 Miscellaneous Notes* Letter - Mammography Coordinator - 09/05/2021 10:07 AM EDT September 05, 2021 PID: [id number] Haydee Bustamante [address] [place] [id number] Dear Ms. Bustamante, Your recent breast imaging exam on 09/05/2021 showed a possible finding that requires additional imaging studies for a complete evaluation. Most such findings are probably benign (not cancer). If you have a healthcare provider who ordered/prescribed your screening mammogram: Please call [phone] or [phone] to schedule an appointment for your additional [...] and reports are [facility] as part of your permanent medical record, and are available for your continuing care. Thank you for allowing us to help in meeting your health care needs. Sincerely, Dr. Bell Interpreting Radiologist [facility] (Additional imaging) documented in this encounterFort Hamilton Hospital07-18-2022 History of Present illness Narrative* Haider [...] 05, 2021 9:28 AM documented in this encounterFort Hamilton Hospital07-05-2022 History of Present illness Narrative* Melissa Means RN - 08/23/2021 4:36 PM EDT per verbal order by business operations director provider dr rowell she agrees with information * Melissa Means RN - 08/23/2021 12:01 PM EDT patient had inr completed at [facility] patients inr is 2.2 (patients inr [...] for follow up INR. documented in this encounterFort Hamilton Hospital06-24-2022 History of Present illness Narrative* William Messina, DO - 08/12/2021 11:31 AM EDT Images from the original note were not included. [facility] SECTION OF [facility]ARDIOLOGY [facility] OUTPATIENT VISIT DATE August 12, 2021 PRIMARY CARE PHYSICIAN: Claudine Durán [address] [place] [address] HISTORY OF PRESENT ILLNESS: Ms. Bustamante is a 76 year old female. The patient returns for follow-up due to history of known bicuspid aortic valve stenosis. Previous stenosis has been evaluation as showed this to be mild. Additionalhistory includes hypertension. 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 She is planning on doing [employer] again this summer. She denies chest discomfort, [...] factor (HCC) 03/07/2015 Dr. Hurley ([facility]) Unspecified hemorrhoids without mention of complication [...] SPINE FUSN,POST INTERBODY 2012 Dr. Armando at [facility]. Diskectomy and laminectomy PAST SURGICAL HISTORY OF [...] (FLONASE) 50 mcg/actuation nasal spray Use 1 [place] in each nostril once daily. econazole (SPECTAZOLE) [...] Department of Medicine and Division of Cardiology, [facility] Client Service Professionalflatbed driver [facility] Client Service Professional of [facility] Cardiology Office Client Service Professional [facility] Staff Porcelain Buildup Assistant, Les Pierce Department of Cardiovascular Medicine/Heart and Vascular [place], [facility] Clinical Broadcast Transmitter Operator Profressor of Medicine, [facility] of Medicine [facility] Please note: This note has been produced using speech recognition software and may contain errors related to that system including madelyn, punctuation, spelling, words, gender and phrases that may be inappropriate. documented in this encounterFort Hamilton Hospital06-10-2022 Miscellaneous Notes* Telephone Encounter - Nahomy Mercado - 07/29/2021 2:32 PM EDT Pharmacy faxed requesting the following refill. Pending Prescriptions Disp Refills SYMBICORT 160 MCG-4.5 MCG/ACTUATION HFA AEROSOL INHALER 30.6 g 4 Sig: USE 2 INHALATIONS TWICE A DAY INSTRUCTED YULIANA: Yes Patient last appointment: [address] [place] [address] Andujar Patient Phone numbers: [phone] (home) Request is for script(s) to be escript to pharmacy. Nahomy Mercado documented in this encounterFort Hamilton Hospital06-06-2022 History of Present illness Narrative* Melissa Means RN - 07/25/2021 4:39 PM EDT pcp agrees with information * Melissa Means RN - 07/25/2021 11:43 AM EDT patient had inr completed at [facility] patients inr is 1.8 (patients inr [...] for follow up INR. documented in this encounterFort Hamilton Hospital05-23-2022 History of Present illness Narrative* Claudine Durán MD - 07/11/2021 8:18 AM EDT This note was created using [employer] Call Communications[employer]. Subjective Haydee Bustamante is a 76 year [...] toe surgery for now--has show. 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 Noted fell when missed top step. [...] factor (HCC) 03/07/2015 Dr. Hurley ([facility]) Unspecified hemorrhoids without mention of complication [...] (FLONASE) 50 mcg/actuation nasal spray Use 1 [place] in each nostril once daily. econazole (SPECTAZOLE) [...] Abs Lymph 1.00 - 4.00 k/uL 1.64 Esmeralda% % 8.0 Abs Esmeralda <0.87 k/uL 0.60 Eosin% % 2.7 Abs [...] vaccine - ICD9: V04.89, ICD10: Z23 - Differential-Apothesource COVID-19 VACCINE, AGE 12+ YR (ARIAS TOP) 6. COPD without exacerbation (HCC) - ICD9: 496, ICD10: J44.9 Continue present management. Discussed Dr. Andujar's instructions to use albuterol before activity that causes coughing 7. Bronchiectasis without complication (HCC) - ICD9: 494.0, ICD10: J47.9 As noted above. Fall discussed. Arthritis discussed. Claudine Durán MD documented in this encounterFort Hamilton Hospital05-12-2022 History of Present illness Narrative* Gold [...] venegas name is Katarzyna Malcolm RN your Laboratory Administrative Director from Claudine Durán MD office at the [facility]. I am reaching out today because [...] Bustamante. This is Katarzyna Malcolm RN your Laboratory Administrative Director from the [facility]. I am calling to check in with you concerning the MyChart questionnaire you have been receiving from me. I will call you again tomorrow and am looking forward to speaking with you. (Laboratory Administrative Director enters next day in "next patient outreach") Katarzyna Malcolm RN June 29, 2021 3:31 PM documented in this encounterFort Hamilton Hospital04-21-2022 History of Present illness Narrative* Melissa Means RN - 06/09/2021 4:19 PM EDT per business operations director provider dr garza patient is to continue same dose PATIENT NOTIFIED OF INFORMATION * Melissa Means RN - 06/09/2021 10:26 AM EDT patient had inr completed at [facility] patients inr is 1.6 (patients inr [...] for follow up INR. documented in this encounterFort Hamilton Hospital04-18-2022 Miscellaneous Notes* Telephone Encounter - Sergey [...] pharmacy. Sergey Ramirez Ma documented in this encounterFort Hamilton Hospital04-11-2022 Instructions* Patient Instructions* Mirian Andujar MD [...] I am retiring from the staff of [facility] and the practice of Medicine on [...] and Johanna Mariscal PA-C. documented in this encounterFort Hamilton Hospital04-11-2022 History of Present illness Narrative* Mirian Andujar MD - 2021 3:33 PM EDT [facility] Res[facility] [place], 2021: Name: Haydee Bustamante : 1945 INTERVAL [...] months, sooner if needed. Mirian Andujar MD, [facility] Respiratory [place] [facility] and Ambulatory Surgery [address] [address] P: [phone] F: [phone] [email or web address] documented in this encounterFort Hamilton Hospital04-07-2022 History of Present illness Narrative* Melissa Means RN - 05/26/2021 3:21 PM EDT business operations director provider agrees with information * Melissa Means RN - 05/26/2021 10:43 AM EDT patient had inr completed at [facility] patients inr is 1.6 (patients inr [...] is just slightly low documented in this encounterFort Hamilton Hospital04-01-2022 History of Present illness Narrative* Nara [...] 20, 2021 2:45 PM documented in this encounterFort Hamilton Hospital01-24-2022 History of Present illness Narrative* Claudine Durán MD - 03/14/2021 8:16 AM EST This note was created using Reconnexter. Subjective Haydee Bustamante is a 75 year [...] factor (HCC) 03/07/2015 Dr. Hurley ([facility]) Unspecified hemorrhoids without mention of complication [...] (FLONASE) 50 mcg/actuation nasal spray Use 1 [place] in each nostril once daily. potassium chloride [...] good control - Follows with Dr. Messina ([facility] cardiology) - Continue current medication(s) - [...] M05.79 Stable on meds through [facility]--Dr. Hurley Gets labs through his office. Lipid ordered. I spent a total of at least 30 minutes on the date of the service which included [id number] patient care, completing clinical documentation, obtaining and/or reviewing separately obtained history, performing a medically appropriate examination, counseling and educating the patient/family/caregiver and ordering medications, tests, or procedures. Claudine Durán MD documented in this encounterFort Hamilton Hospital01-18-2019 History of Past illness Narrative* Problem [...] of this encounter (statuses as of 05/20/2021) [facility] Narrative* Problem [...] of this encounter (statuses as of 05/22/2021) [facility] Narrative* Problem [...] of this encounter (statuses as of 05/26/2021) [facility] Narrative* Problem [...] of this encounter (statuses as of 06/06/2021) [facility] Narrative* Problem [...] of this encounter (statuses as of 06/09/2021) [facility] Narrative* Problem [...] of this encounter (statuses as of 06/30/2021) [facility] Narrative* Problem [...] of this encounter (statuses as of 07/25/2021) [facility] Narrative* Problem [...] of this encounter (statuses as of 08/01/2021) [facility] Narrative* Problem [...] of this encounter (statuses as of 08/12/2021) [facility] Narrative* Problem [...] of this encounter (statuses as of 08/23/2021) [facility] Narrative* Problem [...] of this encounter (statuses as of 09/06/2021) [facility] Narrative* Problem [...] of this encounter (statuses as of 09/06/2021) [facility] Narrative* Problem [...] of this encounter (statuses as of 09/07/2021) [facility] Narrative* Problem [...] of this encounter (statuses as of 09/20/2021) [facility] Narrative* Problem [...] of this encounter (statuses as of 09/29/2021) [facility] Narrative* Problem [...] of this encounter (statuses as of 10/13/2021) [facility] Narrative* Problem [...] of this encounter (statuses as of 10/13/2021) [facility] Narrative* Problem [...] of this encounter (statuses as of 10/18/2021) [facility] Narrative* Problem [...] of this encounter (statuses as of 10/18/2021) [facility] Narrative* Problem [...] of this encounter (statuses as of 10/19/2021) [facility] Narrative* Problem [...] of this encounter (statuses as of 10/27/2021) [facility] Narrative* Problem [...] of this encounter (statuses as of 11/01/2021) [facility] Narrative* Problem [...] of this encounter (statuses as of 11/08/2021) [facility]* Problem [...] of this encounter (statuses as of 11/10/2021) [facility]* Problem [...] of this encounter (statuses as of 11/10/2021) [facility] Narr[facility]* Problem [...] of this encounter (statuses as of 11/29/2021) [facility]* Problem [...] of this encounter (statuses as of 12/04/2021) [facility]* Problem [...] of this encounter (statuses as of 12/22/2021) [facility]* Problem [...] of this encounter (statuses as of 12/27/2021) [facility]* Problem [...] of this encounter (statuses as of 01/05/2022) [facility]* Problem [...] of this encounter (statuses as of 01/11/2022) [facility]* Problem [...] of this encounter (statuses as of 01/17/2022) [facility]* Problem [...] of this encounter (statuses as of 01/17/2022) [facility]* Problem [...] of this encounter (statuses as of 02/02/2022) [facility]* Problem [...] of this encounter (statuses as of 02/22/2022) [facility]* Problem [...] of this encounter (statuses as of 02/24/2022) [facility]* Problem [...] of this encounter (statuses as of 03/14/2022) [facility]* Problem [...] of this encounter (statuses as of 03/30/2022) [facility]* Problem [...] of this encounter (statuses as of 04/06/2022) [facility]* Problem [...] of this encounter (statuses as of 04/21/2022) [facility]* Problem [...] of this encounter (statuses as of 05/04/2022) [facility]* Problem [...] of this encounter (statuses as of 05/24/2022) [facility]* Problem [...] of this encounter (statuses as of 06/01/2022) [facility]* Problem [...] of this encounter (statuses as of 06/29/2022) [facility]* Problem [...] of this encounter (statuses as of 07/24/2022) [facility]* Problem [...] of this encounter (statuses as of 07/24/2022) [facility]* Problem [...] of this encounter (statuses as of 08/13/2022) [facility]* Problem [...] of this encounter (statuses as of 08/15/2022) [facility]* Problem [...] of this encounter (statuses as of 09/08/2022) [facility]* Problem [...] of this encounter (statuses as of 09/11/2022) [facility]* Problem [...] of this encounter (statuses as of 09/15/2022) [facility]* Problem [...] of this encounter (statuses as of 09/26/2022) [facility]* Problem [...] of this encounter (statuses as of 10/10/2022) [facility]* Problem [...] of this encounter (statuses as of 10/13/2022) [facility]* Problem [...] of this encounter (statuses as of 10/27/2022) [facility]* Problem [...] of this encounter (statuses as of 10/27/2022) [facility]* Problem [...] of this encounter (statuses as of 10/31/2022) [facility]* Problem [...] of this encounter (statuses as of 10/31/2022) [facility]* Problem [...] of this encounter (statuses as of 11/02/2022) [facility]* Problem [...] of this encounter (statuses as of 11/10/2022) [facility]* Problem [...] of this encounter (statuses as of 11/23/2022) [facility]* Problem [...] of this encounter (statuses as of 12/07/2022) [facility]* Problem [...] of this encounter (statuses as of 12/07/2022) [facility] Problem [...] of this encounter (statuses as of 12/15/2022) [facility]* Problem [...] of this encounter (statuses as of 12/20/2022) [facility]* Problem [...] of this encounter (statuses as of 12/24/2022) [facility]* Problem [...] of this encounter (statuses as of 12/24/2022) [facility]* Problem [...] of this encounter (statuses as of 01/04/2023) [facility] Problem [...] of this encounter (statuses as of 01/05/2023) [facility]* Problem [...] of this encounter (statuses as of 01/10/2023) [facility]* Problem [...] of this encounter (statuses as of 01/18/2023) [facility]* Problem [...] of this encounter (statuses as of 01/24/2023) [facility]* Problem [...] of this encounter (statuses as of 02/03/2023) [facility] Problem [...] of this encounter (statuses as of 02/08/2023) [facility]* Problem [...] of this encounter (statuses as of 03/24/2023) [facility]* Problem [...] of this encounter (statuses as of 03/27/2023) [facility]* Problem [...] of this encounter (statuses as of 04/01/2023) [facility]* Problem [...] of this encounter (statuses as of 04/03/2023) [facility]* Problem [...] of this encounter (statuses as of 04/30/2023) [facility]Reason for visit Narrative* Chief Complaint BLOOD IN SPUTUM DEBILITY Reason for Visit Colitis Confusion COVID-19 Generalized weakness Histoplasmosis [facility] Work Phone: Discharge summary Author Jasmyn Chan [facility] April 05, 2023 11:35am Note Date/Time April 05, 2023 11:26am [facility] Medical Records Department [address] [place] [address] Transfer to [facility] MR#: [id number] Acct: [id number] Name: HAYDEE BUSTAMANTE Rep #:[id number] : 1945 77 From: Jasmyn Chan DO PCP: Dr. Claudine Durán MD Status:AD M IN Certification of patient admission REQUIRED AT TIME OF ADMISSION. I CERTIFY THAT POST-HOSPITAL ECF SERVICES ARE REQUIRED TO BE GIVEN ON AN IN-PATIENT BASIS BECAUSE OF THE ABOVE NAMED PATIENT'S NEED FOR CORRECTION CARE ON A CONTINUING BASIS FOR THE [...] Royal; Leobardo Calloway; Jorgito Agarwal; Rosalina Herrera COLOR MATCHER Discharge Orders/Prescriptions Prescriptions: New acetaminophen 325 mg [...] Qty: 0 0RF fluticasone propionate 50 mcg/actuation [place],Suspension 1 spray NASAL DAILY Qty: 0 0RF [...] in before D/C Order can be placed): [facility] 04/05/23 [id number] <Electronically signed by Jasmyn Chan DO> Cosigner [...] Royal MD; Dr. Jorgito Agarwal DO ~ [facility] Work Phone: Evaluation note* Diagnosis Screening mammogram, encounter for- Primary documented in this encounter [facility] note* Diagnosis Essential hypertension- Primary Unspecified essential hypertension History of COVID-19 Cough Bronchiectasis without complication (HCC) Bronchiectasis without acute exacerbation Gastroesophageal reflux disease without esophagitis Esophageal reflux Aortic stenosis with bicuspid valve Rheumatoid arthritis involving multiple sites with positive rheumatoid factor (HCC) documented in this encounter [facility] note* Diagnosis Embolism and thrombosis (HCC) Embolism and thrombosis of unspecified site documented in this encounter [facility] note* Diagnosis Moderate COPD (chronic obstructive pulmonary disease) (HCC)- Primary Chronic airway obstruction, not elsewhere classified Bronchiectasis without complication (HCC) Bronchiectasis without acute exacerbation Centrilobular emphysema (HCC) Other emphysema documented in this encounter [facility] note* Diagnosis Cough due to bronchospasm Acute bronchospasm documented in this encounter [facility] note* Diagnosis Embolism and thrombosis (HCC) Embolism and thrombosis of unspecified site documented in this encounter [facility] noteNo assessment information availableWFostoria [facility] Work Phone: Evaluation note* Diagnosis Personal history of DVT (deep vein thrombosis)- Primary Personal history of venous thrombosis and embolism documented in this encounter [facility] note* Diagnosis Aortic stenosis with bicuspid valve- Primary Essential hypertension Unspecified essential hypertension documented in this encounter [facility] note* Diagnosis Personal history of DVT (deep vein thrombosis)- Primary Personal history of venous thrombosis and embolism documented in this encounter [facility] note* Diagnosis Encounter for screening mammogram for breast cancer documented in this encounter [facility] note* Diagnosis Gastroesophageal reflux disease without esophagitis- Primary Esophageal reflux Other viral warts Elevated LDL cholesterol level Pure hypercholesterolemia Essential hypertension Unspecified essential hypertension Need for COVID-19 vaccine COPD without exacerbation (HCC) Bronchiectasis without complication (HCC) Bronchiectasis without acute exacerbation [facility] Diagnosis Toe infection- Primary Unspecified local infection of skin and subcutaneous tissue Sinobronchitis Unspecified sinusitis (chronic) [facility] Diagnosis Personal history of DVT (deep vein thrombosis)- Primary Personal history of venous thrombosis and embolism [facility]* Diagnosis Abnormal mammogram Abnormal mammogram, unspecified [facility] Diagnosis Ulcer of toe of left foot, limited to breakdown of skin (HCC)- Primary Hammer toe of left foot Onychodystrophy Other specified disease of nail [facility] Diagnosis Embolism and thrombosis (HCC) Embolism and thrombosis of unspecified site [facility] Diagnosis Ulcer of toe of left foot, limited to breakdown of skin (HCC) Hammer toe of left foot [facility] Ulcer of toe of left foot, limited to breakdown of skin (HCC)- Primary Hammer toe of left foot Hallux rigidus of left foot Hallux rigidus [facility]* Diagnosis COPD without exacerbation (HCC) Essential hypertension Unspecified essential hypertension [facility] Diagnosis Essential hypertension- Primary Unspecified essential hypertension Chronic obstructive pulmonary disease, unspecified COPD type (HCC) Encounter for immunization Need for other specified prophylactic vaccination against single bacterial disease Gastroesophageal reflux disease without esophagitis Esophageal reflux Bronchiectasis without complication (HCC) Bronchiectasis without acute exacerbation Aortic stenosis with bicuspid valve [facility] Diagnosis Lung nodules- Primary Other nonspecific abnormal finding of lung field Bronchiectasis without complication (HCC) Bronchiectasis without acute exacerbation Chronic obstructive pulmonary disease, unspecified COPD type (HCC) Rheumatoid arthritis involving multiple sites with positive rheumatoid factor (HCC) [facility] Diagnosis Personal history of DVT (deep vein thrombosis)- Primary Personal history of venous thrombosis and embolism [facility] Diagnosis Rheumatoid arthritis involving multiple sites with positive rheumatoid factor (HCC) Low back pain with right-sided sciatica, unspecified back pain laterality, unspecified chronicity [facility] Diagnosis Rheumatoid arthritis involving multiple sites with positive rheumatoid factor (HCC) Low back pain with right-sided sciatica, unspecified back pain laterality, unspecified chronicity Pseudogout Other disorder of calcium metabolism documented [facility]* Diagnosis Personal history of DVT (deep vein thrombosis)- Primary Personal history of venous thrombosis and embolism [facility]* Diagnosis Essential hypertension- Primary Unspecified essential hypertension Chronic anticoagulation Long-term (current) use of 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 Aortic stenosis with bicuspid valve Rheumatoid arthritis involving multiple sites with positive rheumatoid factor (HCC) COPD without exacerbation (HCC) Bronchiectasis without complication (HCC) Bronchiectasis without acute exacerbation Acquired hammertoe of left foot Early dry stage nonexudative age-related macular degeneration of both eyes [facility]* Diagnosis Personal history of DVT (deep vein thrombosis)- Primary Personal history of venous thrombosis and embolism [facility] Diagnosis Personal history of DVT (deep vein thrombosis)- Primary Personal history of venous thrombosis and embolism [facility] Diagnosis Personal history of DVT (deep vein thrombosis)- Primary Personal history of venous thrombosis and embolism [facility] Diagnosis Lung nodules- Primary Other nonspecific abnormal finding of lung field Bronchiectasis without complication (HCC) Bronchiectasis without acute exacerbation Rheumatoid arthritis involving multiple sites with positive rheumatoid factor (HCC) [facility] Lung nodules- Primary Other nonspecific abnormal finding of lung field Bronchiectasis without complication (HCC) Bronchiectasis without acute exacerbation [facility] Diagnosis Personal history of DVT (deep vein thrombosis)- Primary Personal history of venous thrombosis and embolism [facility] Diagnosis Aortic stenosis with bicuspid valve- Primary Essential hypertension Unspecified essential hypertension History of recurrent deep vein thrombosis (DVT) [facility] Diagnosis Rheumatoid arthritis involving multiple sites with positive rheumatoid factor (HCC) Low back pain with right-sided sciatica, unspecified back pain laterality, unspecified chronicity Pseudogout Other disorder of calcium metabolism [facility] Diagnosis FPC current use of anticoagulant therapy- Primary Long-term (current) use of 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 [facility] Diagnosis Essential hypertension- Primary Unspecified [...] with bicuspid valve [facility]* Diagnosis Chronic anticoagulation Long-term (current) use of 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 [facility] Diagnosis Chronic anticoagulation Long-term (current) use of 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 [facility] Diagnosis Personal history of DVT (deep vein thrombosis)- Primary Personal history of venous thrombosis and embolism [facility] Diagnosis Embolism and thrombosis (HCC)- Primary Embolism and thrombosis of unspecified site [facility]* Diagnosis DDD (degenerative disc disease), lumbar- Primary Degeneration of lumbar or lumbosacral intervertebral disc Hip pain, acute, left Age-related osteoporosis without current pathological fracture Senile osteoporosis [facility]* Diagnosis Embolism and thrombosis (HCC)- Primary Embolism and thrombosis of unspecified site [facility] Diagnosis Rheumatoid arthritis involving multiple sites with positive rheumatoid factor (HCC) Low back pain with right-sided sciatica, unspecified back pain laterality, unspecified chronicity [facility] Diagnosis Lung nodules Other nonspecific abnormal finding of lung field [facility]* Diagnosis Encounter for screening mammogram for breast cancer [facility] Diagnosis Encounter for immunization- Primary Need for other specified prophylactic vaccination against single bacterial disease [facility] Diagnosis Embolism and thrombosis (HCC)- Primary Embolism and thrombosis of unspecified site [facility] Diagnosis Personal history of DVT (deep vein thrombosis)- Primary Personal history of venous thrombosis and embolism [facility] Diagnosis Acute cough- Primary [facility]* Diagnosis Onset Date Resolution Status Colitis acute Confusion acute COVID-19 acute Generalized weakness acute Histoplasmosis acute [facility] Work Phone: Evaluation note* Diagnosis Onset Date Resolution Status Confusion acute COVID-19 acute Generalized weakness acute Histoplasmosis acute [facility] Work Phone: Evaluation note* Diagnosis Onset Date Resolution Status Confusion acute COVID-19 acute Generalized weakness acute Histoplasmosis acute Adult failure to thrive acut e Cellulitis acute Generalized weakness acute History of DVT (deep vein thrombosis) acute Leg edema acute Rheumatoid arthritis acute Weakness acute [facility] Work Phone: Evaluation note* Diagnosis Hypoalbuminemia- Primary Other disorders of plasma protein metabolism Elevated alkaline phosphatase level Other nonspecific abnormal serum enzyme levels Elevated LFTs Other abnormal blood chemistry Anemia, unspecified type Leukocytosis, unspecified type documented in this encounter [facility] note* Diagnosis Onset Date Resolution Status Adult failure to thrive acut e Cellulitis acute History of DVT (deep vein thrombosis) acute Leg edema acute Rheumatoid arthritis acute Thrombocytopenia acute Weakness acute Anemia chronic [facility] Work Phone: Evaluation note* Diagnosis Onset Date [...] acute COPD (chronic obstructive pulmonary disease) chronic [facility] Work Phone: Evaluation note* Diagnosis Onset Date [...] resolved Edema resolved Failure to thrive resolved [facility] Work Phone: Evaluation note* Diagnosis Rheumatoid arthritis involving multiple sites with positive rheumatoid factor (HCC) Low back pain with right-sided sciatica, unspecified back pain laterality, unspecified chronicity [facility]* Diagnosis Rheumatoid arthritis involving multiple sites with positive rheumatoid factor (HCC) Low back pain with right-sided sciatica, unspecified back pain laterality, unspecified chronicity Pseudogout Other disorder of calcium metabolism [facility]* Diagnosis Personal history of DVT (deep vein thrombosis)- Primary Personal history of venous thrombosis and embolism [facility] Diagnosis Acute pain of right knee- Primary Chronic anticoagulation Long-term (current) use of 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 Hip pain, acute, left Pain and swelling of right lower leg [facility]* Diagnosis Personal history of DVT (deep vein thrombosis)- Primary Personal history of venous thrombosis and embolism [facility]* Diagnosis Anemia, unspecified type- Primary Elevated LFTs Other abnormal blood chemistry COPD without exacerbation (HCC) Essential hypertension Unspecified essential hypertension Cough due to bronchospasm Acute bronchospasm Chronic anticoagulation Long-term (current) use of 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 Encounter for long-term current use of medication Gastric ulcer with hemorrhage, unspecified chronicity [facility]* Diagnosis Right knee pain, unspecified chronicity- Primary documented [facility]* 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- Primary Long-term (current) use of 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 [facility]* Diagnosis COPD without exacerbation (HCC) documented [facility]* Diagnosis COPD without exacerbation (HCC) documented [facility]* Diagnosis Rheumatoid arthritis involving multiple sites with positive rheumatoid factor (HCC)- Primary Edema, unspecified type Encounter for therapeutic drug monitoring documented [facility]* Diagnosis Personal history of DVT (deep vein thrombosis)- Primary Personal history of venous thrombosis and embolism [facility] Diagnosis Rheumatoid arthritis involving multiple sites with positive rheumatoid factor (HCC)- Primary Pain and swelling of right knee [facility]* Diagnosis Nonrheumatic aortic valve stenosis- Primary Aortic valve disorders Mitral valve stenosis, non-rheumatic Mitral valve disorders Essential hypertension Unspecified essential hypertension Pericardial effusion (noninflammatory) Leg edema 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 Long-term (current) [...] without exacerbation (HCC) [facility]* Diagnosis Disseminated histoplasmosis- Primary Histoplasmosis, unspecified [...] of digestive system [facility]* Diagnosis Edema, unspecified type- Primary [facility]* Diagnosis Personal history of DVT (deep vein thrombosis)- Primary Personal history of venous thrombosis and embolism [facility]* Diagnosis Anemia, unspecified type- Primary Bilateral lower extremity edema Edema Chronic anticoagulation Long-term (current) use of 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 Moderate to severe aortic stenosis Aortic valve disorders Disseminated histoplasmosis Histoplasmosis, unspecified without mention of manifestation Nodule of lower lobe of left lung Encounter for long-term current use of medication [facility] Diagnosis Edema, unspecified type [facility]* Diagnosis Personal history of DVT [...] blood loss (chronic) [facility]* Diagnosis Aortic stenosis with bicuspid valve- Primary Pericardial effusion Unspecified disease of pericardium Essential hypertension Unspecified essential hypertension Chronic heart failure with preserved ejection fraction (HFpEF) (HCC) Mitral valve stenosis, non-rheumatic Mitral valve disorders Nonrheumatic tricuspid valve regurgitation Tricuspid valve disorders, specified as nonrheumatic [facility]* Diagnosis Personal history of DVT (deep vein thrombosis)- Primary Personal history of venous thrombosis and embolism [facility]* Diagnosis Chronic anticoagulation Long-term (current) use of 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 documented [facility]* Diagnosis Personal history of DVT (deep vein thrombosis)- Primary Personal history of venous thrombosis and embolism [facility]* Diagnosis Acute cough documented in [facility]* Diagnosis Disseminated histoplasmosis Histoplasmosis, unspecified without mention of manifestation [facility]* Diagnosis Personal history of DVT (deep vein thrombosis)- Primary Personal history of venous thrombosis and embolism [facility]* Diagnosis Personal history of DVT (deep vein thrombosis)- Primary Personal history of venous thrombosis and embolism [facility]* Diagnosis COPD without exacerbation (HCC) [facility]* Diagnosis Disseminated histoplasmosis- Primary Histoplasmosis, [...] antibiotics Counseling, unspecified [facility]* Diagnosis Nonrheumatic aortic valve stenosis- Primary Aortic valve disorders Encounter for preprocedural cardiovascular examination Pre-operative cardiovascular examination Aortic valve disorder Aortic valve disorders [facility]* Diagnosis Rheumatoid arthritis with positive [...] Aortic valve disorders [facility] Diagnosis Personal history of DVT (deep vein thrombosis)- Primary Personal history of venous thrombosis and embolism Nonrheumatic aortic valve stenosis Aortic valve disorders [facility]* Diagnosis Nonrheumatic aortic valve stenosis- Primary [...] Aortic valve disorders [facility]* Diagnosis Nonrheumatic aortic valve stenosis Aortic [...] Aortic valve disorders [facility]* Diagnosis Personal history of DVT (deep vein thrombosis)- Primary Personal history of venous thrombosis and embolism [facility]* Diagnosis Nonrheumatic aortic valve stenosis- Primary Aortic valve disorders Aortic valve stenosis, etiology of cardiac valve disease unspecified [facility]* Diagnosis Nonrheumatic aortic valve stenosis- Primary Aortic valve disorders Aortic valve disorder Aortic valve disorders Aortic valve stenosis, etiology of cardiac valve disease unspecified [facility]* Diagnosis Encounter for preoperative anesthesiology assessment for cardiac surgery- Primary Aortic valve stenosis, etiology of cardiac valve disease unspecified [facility] Diagnosis Nonrheumatic aortic valve stenosis- Primary Aortic valve disorders Aortic valve stenosis, etiology of cardiac valve disease unspecified [facility]* Diagnosis Nonrheumatic aortic valve stenosis Aortic valve disorders Aortic valve disorder Aortic valve disorders Aortic valve stenosis, etiology of cardiac valve disease unspecified [facility]* Diagnosis Personal history of DVT (deep vein thrombosis)- Primary Personal history of venous thrombosis and embolism Aortic valve stenosis, etiology of cardiac valve disease unspecified [facility]* Diagnosis Nonrheumatic aortic valve stenosis- Primary Aortic valve disorders [facility] Diagnosis Nonrheumatic aortic valve stenosis- Primary Aortic valve disorders S/P TAVR (transcatheter aortic valve replacement) Heart valve replaced by other means Chronic diastolic heart failure (HCC) Chronic diastolic heart failure [facility]* Diagnosis Disseminated histoplasmosis- Primary Histoplasmosis, unspecified [...] Counseling, unspecified [facility]* Diagnosis Medicare annual wellness visit, subsequent- [...] by other means [facility] Diagnosis Chronic heart failure with preserved ejection fraction (HCC)- Primary [facility]* Diagnosis COPD without exacerbation (HCC) [facility]* Diagnosis Rheumatoid arthritis involving multiple sites with positive rheumatoid factor (HCC) Low back pain with right-sided sciatica, unspecified back pain laterality, unspecified chronicity [facility]* Diagnosis Rheumatoid arthritis involving multiple sites with positive rheumatoid factor (HCC) Low back pain with right-sided sciatica, unspecified back pain laterality, unspecified chronicity [facility] Diagnosis Personal history of DVT [...] of respiratory system [facility] Diagnosis S/P TAVR (transcatheter aortic [...] of respiratory system [facility] Diagnosis Personal history of DVT (deep vein thrombosis)- Primary Personal history of venous thrombosis and embolism [facility] Author Laine Veras [facility] March 26, 2023 4:04pm Note Date/Time March 26, 2023 4 :05pm [facility] Medical Records Department [address] [place] [address] H&P Exam - Hospitalist 03/26/23 1551 MR#: [id number] Acct: [id number] Name: HAYDEE BUSTAMANTE Rep #:[id number] : 1945 77 From: Laine Veras MD PCP: Dr. Claudine Durán MD Status:AD M ADAIR Location: [facility]3 [id number] HPI - General General Date of Admission: 03/26/23 Date of Service: 03/26/23 Chief Complaint: Confusion, shortness of breath HPI Narrative HAYDEE BUSTAMANTE, is a 77-year-old female history of hypertension, GERD, RA, PE, severe aortic stenosis and moderate pericardial effusion, histoplasmosis presented to [facility] ED 03/26/2023 with shortness of breath andinability to care for self at home. Recently seen 03/21/2023 in [place] ED and transferred to [facility] due to concern for bowel perforation which [...] outpatient basis. She was just discharged from [facility] yesterday and today legs are weeping and she is urinating on herself. She was discharged home on Cipro and Flagyl and itraconazole twice daily as well as 4 more days of dexamethasone and given Imodium for diarrhea. She was instructed to hold her hydrochlorothiazide and irbesartan due to kidney function. In [facility] ED patient 96% on room air [...] reports that she got home yesterday from [facility] and was talking about the fact that [...] oriented but very hard to direct inconversation. [facility] Medical History (Updated 03/26/23 @ 15:59 [...] Q24H 03/19/23 [History Last Taken Unknown] vitamins A,C,Q-emsu-axdebv 2,148 mcg-113 mg-45 mg-17.4 mg tablet (PreserVision [...] 80.3 H, Lymph % (Auto) 6.3 L, Esmeralda % (Auto) 9.6, Eos % (Auto) 0.0, [...] for bowel perf treated conservatively -Treated at [facility] -On cipro/flagyl, will continue this # Disseminated histoplasmosis -Continue itraconazole twice daily -Patient to follow-up with a Dr. Hart in 3 months # Recent COVID-19 -4 more days of dexamethasone -Tested positive here at the end of February #Hx and mod pericardial effusion -Seen at [facility] gen and pt advised to f/u outpt [...] Veras MD Charges/Coding Visit Charges Inpatient E&M: 88100 Init Hosp L2 03/26/23 1604 <Electronically signed by Laine Veras MD> Cosigner Signature (if applicable): CC: Dr. Claudine Durán MD; Dr. Laine Veras MD~ Signed [facility] Work Phone: History and physical note Author Laine Veras [facility] March 31, 2023 8:59pm Note Date/Time March 31, 2023 8:20pm [facility] Medical Records Department [address] [place] [address] H&P Exam - Hospitalist 03/31/232011 MR#: [id number] Acct: [id number] Name: HAYDEE BUSTAMANTE Rep #:[id number] : 1945 77 From: Laine Veras MD PCP: Dr. Claudine Durán MD Status:AD M IN Location: [facility] [id number] HPI - General General Date of Admission: 03/31/23 Date of Service: 03/31/23 Chief Complaint: BLE edema and weeping HPI Narrative HAYDEE BUSTAMANTE, is a 77-year-old female history of COPD, Severe . GERD. DVT and PEon Coumadin, histoplasmosis of the lung, RA who presented to [facility] ED 03/31/2023 with bilateral lower extremity edema. She was seen here 03/28/2023 with lower extremity edema. She was initially seen here 03/26/2023 for shortness of breath and inability to care for herself at home after a recent hospital stay at [facility] from which she was discharged on [...] is unsure if she's taking her coumadin [facility] Medical History (Updated 03/31/23 @ 20:42 by [...] Q24H 03/19/23 [History Last Taken Unknown] vitamins A,C,X-eqlu-ugedfg 2,148 mcg-113 mg-45 mg-17.4 mg tablet (PreserVision [...] 90.8 H, Lymph % (Auto) 3.0 L, Esmeralda % (Auto) 5.0, Eos % (Auto) 0.1, [...] for bowel perf treated conservatively -Treated at [facility] -s/p cipro and flagyl, no present abd complaints # Disseminated histoplasmosis -Continue itraconazole twice daily -Patient to follow-up with a Dr. Hart in 3 months # Recent COVID-19 -Tested positive here end of February -No resp complaints #Hx COPD -Continue inhalers #Hx and mod pericardial effusion -Seen at [facility] gen and pt advised to f/u outpt [...] documentation, 78Minutes Charges/Coding Visit Charges Inpatient E&M: 45045 Init Hosp L3 03/31/232058 <Electronically signed by Laine Veras MD> Cosigner Signature (if applicable): CC: Dr. Claudine Durán MD; Dr. Laine Veras MD~ Signed [facility] Work Phone: Hospital Discharge instructions Additional Instructions [...] higher or systolic number then stop the medication.[facility] Work Phone: Reason for referral (narrative)* Outpatient Procedure (Routine) - Authorized Specialty Diagnoses / Procedures Referred By Divya reis [facility] Diagnoses Aortic stenosis with bicuspid valve Essential hypertension Procedures ECHO ECHO TTHRC R-T 2D W/WOM-MODE COMPL SPEC&COLR D SiddharthWilliam, [address] [place] [address] [address] Referral ID Status Reason Start Date Expiration Date Visits Requested Visits Authorized [id number] Authorized Auto-Generat ed Referral 08/12/2021 08/12/2022 1 1 * Outpatient Procedure (Routine) - Closed Specialty Diagnoses / Procedures Referred By Contac t Referred To [facility] Diagnoses Aortic stenosis with bicuspid valve Essential hypertension Procedures ECG COMPLETE ECG ROUTINE ECG W/LEAST 12 LDS W/I&R Siddharth William Aguilar, [address] [place] [address] [place] [id number] Referral ID Status Reason Start Date Expiration Date V isits Requested Visits Authorized [id number] Closed Auto-Generate d Referral 08/12/2021 08/12/2022 1 1 [facility] for referral (narrative)* Diagnostic Procedure Only (Routine) - Closed Specialty Diagnoses / Procedures Referred By Contac t Referred To Contact XR IMAGING Diagnoses Ulcer of toe of left foot, limited to breakdown of skin (HCC) Hammer toe of left foot Procedures XR FOOT GENERAL 3V AP/LAT/OBL LEFT RADEX FOOT COMPLETE MINIMUM 3 VIEWS Chacho Louise [address] [place] [address] Xr Imaging Referral ID Status Reason Start Date Expiration Date V isits Requested Visits Authorized [id number] Closed Auto-Generate d Referral 10/18/2021 11/17/2022 1 1 [facility] for referral (narrative)* Diagnostic Procedure Only (Routine) - Closed Specialty Diagnoses / Procedures Referred By Contac t Referred To Contact XR IMAGING Diagnoses Ulcer of toe of left foot, limited to breakdown of skin (HCC) Hammer toe of left foot Procedures XR FOOT GENERAL 3V AP/LAT/OBL LEFT RADEX FOOT COMPLETE MINIMUM 3 VIEWS Chacho Louise [address] [place] [address] Xr Imaging Referral ID Status Reason Start Date Expiration Date V isits Requested Visits Authorized [id number] Closed Auto-Generate d Referral 10/18/2021 11/17/2022 1 1 [facility] for referral (narrative)* Outpatient Procedure (Routine) - Authorized Specialty Diagnoses / Procedures Referred By Divya reis Referred [facility] Diagnoses Aortic stenosis with bicuspid valve Procedures ECHO ECHO TTHRC R-T 2D W/WOM-MODE COMPL SPEC&COLR Rachelle Wilcox APRN.REGIONAL CONTROLLER [address] [address] [facility] [address] [place] [address] Referral ID Status Reason Start Date Expiration Date Visits Requested Visits Authorized [id number] Authorized Auto-Generat ed Referral 08/29/2022 08/29/2023 1 1 [facility] for referral (narrative)* Diagnostic Procedure Only (Routine) - Authorized Specialty Diagnoses / Procedures Referred By Divya t Referred To Contact BR IMAGING Diagnoses Encounter for screening mammogram for breast cancer Procedures SABINO SCREENING W ALIZE SCREENING DIGITAL BREAST TOMOSYNTHESIS BI SCREENING MAMMOGRAPHY BI 2-VIEW BREAST INC Jimbo Egan, ROCKBOARD LATHER [address] [place] [address] Br Imaging [address] [place] [address] Referral ID Status Reason Start Date Expiration Date Visits Requested Visits Authorized [id number] Authorized Auto-Generat ed Referral 10/27/2022 11/26/2023 1 1 * Diagnostic Procedure Only (Routine) - Pending Review Specialty Diagnoses / Procedures Referred By Francoisac t Referred To Contact BR IMAGING Diagnoses Encounter for screening mammogram for breast cancer Procedures SABINO SCREENING SCREENING MAMMOGRAPHY BI 2-VIEW BREAST INC CAD Jv Jimbo, CONNIE.ROCKBOARD LATHER [address] [place] [address] Br Imaging [address] [place] [address] Referral ID Status Reason Start Date Expiration Date Visits Requested Visits Authorized [id number] Pending Review Auto-Generat ed Referral 10/27/2022 11/26/2023 1 1 [facility] for referral (narrative)* Diagnostic Procedure Only (Routine) - Closed Specialty Diagnoses / Procedures Referred By Divya t Referred To Contact BR IMAGING Diagnoses Encounter for screening mammogram for breast cancer Procedures SABINO SCREENING W ALIZE SCREENING DIGITAL BREAST TOMOSYNTHESIS BI SCREENING MAMMOGRAPHY BI 2-VIEW BREAST INC CAD Jimbo Swanson, CONNIE.ROCKBOARD LATHER [address] [place] [address] Br Imaging [address] [place] [address] Referral ID Status Reason Start Date Expiration Date V isits Requested Visits Authorized [id number] Closed Auto-Generate d Referral 10/27/2022 11/26/2023 1 1 [facility] for referral (narrative)* Outpatient Procedure (Urgent) - Authorized Specialty Diagnoses / Procedures Referred By Francoisac t Referred To [facility] Diagnoses Acute pain of right knee Pain and swelling of right lower leg Procedures US LEG VEIN DVT UNL VAS LAB DUP-SCAN XTR VEINS UNILATERAL/LIMITED STUDY Jimbo Swanson APRN.CNS [address] [place] [address] [facility] [address] [place] [address] Referral ID Status Reason Start Date Expiration Date Visits Requested Visits Authorized [id number] Authorized Auto-Generat ed Referral 07/10/2023 07/09/2024 1 1 [facility] for referral (narrative)* Diagnostic Procedure Only (Routine) - Pending Review Specialty Diagnoses / Procedures Referred By Contac t Referred To Contact XR IMAGING Diagnoses Right knee pain, unspecified chronicity Procedures XR LEG FRONTAL HIP TO ANKLE MECHANICAL AXIS BONE LENGTH STUDIES London Short PA-C [address] [place] [address] [place] [address] Referral ID Status Reason Start Date Expiration Date Visits Requested Visits Authorized [id number] Pending Review Auto-Generat ed Referral 07/18/2023 08/15/2024 1 1 * Diagnostic Procedure Only (Routine) - Pending Review Specialty Diagnoses / Procedures Referred By Contac t Referred To Contact XR IMAGING Diagnoses Right knee pain, unspecified chronicity Procedures XR KNEE GENERAL 4V AP BOTH/PA BOTH/LAT/MERC RIGHT RADIOLOGIC EXAM KNEE COMPLETE 4/MORE VIEWS London Short PA-C [address] [place] [address] [place] [address] Referral ID Status Reason Start Date Expiration Date Visits Requested Visits Authorized [id number] Pending Review Auto-Generat ed Referral 07/18/2023 08/15/2024 1 1 [facility] for referral (narrative)* Outpatient Procedure (Routine) - Pending Review Specialty Diagnoses / Procedures Referred By Contac t Referred To [facility] Diagnoses Nonrheumatic aortic valve stenosis Mitral valve stenosis, non-rheumatic Essential hypertension Pericardial effusion (noninflammatory) Procedures ECHO LIMITED ECHO TRANSTHORAC R-T 2D W/WO M-MODE REC William Miller DO [address] [place] [address] [address] Referral ID Status Reason Start Date Expiration Date Visits Requested Visits Authorized [id number] Pending Review Auto-Generat ed Referral 08/27/2023 08/26/2024 1 1 [facility] for referral (narrative)* Outpatient Procedure (Routine) - Authorized Specialty Diagnoses / Procedures Referred By Contac t Referred To Contact [facility] [place] Diagnoses Pericardial effusion Procedures ECHO LIMITED ECHO TRANSTHORAC R-T 2D W/WO M-MODE REC COMP Bibi Alegria DIAMOND DRILLER HELPER.REGIONAL CONTROLLER [address] [place] [address] [address] Referral ID Status Reason Start Date Expiration Date Visits Requested Visits Authorized [id number] Authorized Auto-Generat ed Referral 10/17/2024 1 1 [facility] for referral (narrative)* Outpatient Procedure (Routine) - New Request Specialty Diagnoses / Procedures Referred By Contac t Referred To Contact [facility] Diagnoses Nonrheumatic aortic valve stenosis Aortic valve disorder Procedures ECG COMPLETE ECG ROUTINE ECG W/LEAST 12 LDS W/I&R Monica Aguila APRN.SANTY [address] [place] [address] [address] Referral ID Status Reason Start Date Expiration Date Visits Requested Visits Authorized [id number] New Request Auto-Generat ed Referral 01/07/2025 1 1 * Outpatient Procedure (Routine) - New Request Specialty Diagnoses / Procedures Referred By Contac t Referred To Contact [facility] [place] Diagnoses Nonrheumatic aortic valve stenosis Aortic valve disorder Procedures ECHO ECHO TTHRC R-T 2D W/WOM-MODE COMPL SPEC&COLR D Monica Aguila APRN.REGIONAL CONTROLLER [address] [place] [phone] [facility] [address] [place] [address] Referral ID Status Reason Start Date Expiration Date Visits Requested Visits Authorized [id number] New Request Auto-Generat ed Referral 4 01/07/2025 1 1 * Diagnostic Procedure Only (Routine) - New Request Specialty Diagnoses / Procedures Referred By Divya reis Referred To Contact [facility] Diagnoses Nonrheumatic aortic valve stenosis Procedures NM SPECT/CT CARDIAC AMYLOID RP LOCLZJ MARY SPECT W/CT 1 AREA 1 DAY IMAGING Monica Aguila APRN.REGIONAL CONTROLLER [address] [place] [address] [facility] [address] [place] [address] Referral ID Status Reason Start Date Expiration Date Visits Requested Visits Authorized [id number] New Request Auto-Generat ed Referral 4 02/06/2025 1 1 * MRI/CT (Routine) - New Request Specialty Diagnoses / Procedures Referred By Divya reis Referred To Contact CT IMAGING Diagnoses Nonrheumatic aortic valve stenosis Encounter for preprocedural cardiovascular examination Procedures CTA CHEST/ABD/PEL (GATED) W IVCON CT ANGIOGRAPHY CHEST W/CONTRAST/NONCONTRAST CT ANGIO ABD&PLVIS CNTRST MTRL W/WO CNTRST Monica Zavala APRN.REGIONAL CONTROLLER [address] [place] [address] Ct Imaging [facility] Referral ID Status Reason Start Date Expiration Date Visits Requested Visits Authorized [id number] New Request Auto-Generat ed Referral 4 02/06/2025 1 1 * Outpatient Procedure (Routine) - New Request Specialty Diagnoses / Procedures Referred By Divya reis Referred To Contact [facility] Diagnoses Nonrheumatic aortic valve stenosis Procedures LUNG DIFFUSION CAPACITY (DLCO) DIFFUSING CAPACITY Monica Aguila APRN.REGIONAL CONTROLLER [address] [place] [address] [place] [address] Referral ID Status Reason Start Date Expiration Date Visits Requested Visits Authorized [id number] New Request Auto-Generat ed Referral 4 02/06/2025 1 1 * Outpatient Procedure (Routine) - New Request Specialty Diagnoses / Procedures Referred By Divya reis Referred To Contact [facility] Diagnoses Nonrheumatic aortic valve stenosis Procedures SPIROMETRY BASELINE ONLY SPMTRY W/VC EXPIRATORY MILTON W/WO MXML VOL VNTJ Monica Aguila APRN.REGIONAL CONTROLLER [address] [place] [phone] [place] [address] Referral ID Status Reason Start Date Expiration Date Visits Requested Visits Authorized [id number] New Request Auto-Generat ed Referral 4 02/06/2025 1 1 [facility] for referral (narrative)* Diagnostic Procedure Only (Routine) - Closed Specialty Diagnoses / Procedures Referred By Divya reis Referred To Contact [facility] Diagnoses Nonrheumatic aortic valve stenosis Procedures NM SPECT/CT CARDIAC AMYLOID RP LOCLZJ MARY SPECT W/CT 1 AREA 1 DAY IMAGING Monica Aguila APRN.REGIONAL CONTROLLER [address] [place] [address] [facility] [address] [place] [phone] Referral ID Status Reason Start Date Expiration Date V isits Requested Visits Authorized [id number] Closed Auto-Generate d Referral 01/08/2024 02/06/2025 1 1 [facility] for referral (narrative)* Transition of Care (Routine) - Authorized Specialty Diagnoses / Procedures Referred By Contac t Referred To Contact [facility] Procedures CARDIOVASCULAR MEDICINE OP FOLLOW UP APPT ORDER Monica Aguila APRN.CNP [address] [place] [address] Phone: tel: fax: [facility] [id number] [place] [address] Referral ID Status Reason Start Date Expiration Date Visits Requested Visits Authorized [id number] Authorized PCP Requested Referral 04/30/2024 04/30/2025 1 1 [facility] for referral (narrative)* Transition of Care (Routine) - Authorized Specialty Diagnoses / Procedures Referred By Contac t Referred To Contact [facility] Procedures CARDIOVASCULAR MEDICINE OP FOLLOW [place] [address] [place] [address] Phone: tel: [facility] [address] [address] Referral ID Status Reason Start Date Expiration Date Visits Requested Visits Authorized [id number] Authorized PCP Requested Referral 05/05/2024 05/05/2025 1 1 [facility] for referral (narrative)No reason for referral information availableWFostoria City [facility] Work Phone: [facility] for referral (narrative)* Transition of Care (Routine) - Authorized Specialty Diagnoses / Procedures Referred By Contac t Referred To Contact [facility] Procedures CARDIOVASCULAR MEDICINE OP FOLLOW UP APPT ORDER Brissa Chester APRN.REGIONAL CONTROLLER [address] [place] [address] Phone: tel: fax: [facility] [address] [place] [address] Referral ID Status Reason Start Date Expiration Date Visits Requested Visits Authorized [id number] Authorized PCP Requested Referral 07/22/2024 07/22/2025 1 1 [facility] for visit Narrative* Diagnostic Procedure Only (Routine) - Closed Specialty Diagnoses / Procedures Referred By Contac t Referred To Contact XR IMAGING Diagnoses Ulcer of toe of left foot, limited to breakdown of skin (HCC) Hammer toe of left foot Procedures XR FOOT GENERAL 3V AP/LAT/OBL LEFT RADEX FOOT COMPLETE MINIMUM 3 VIEWS Chacho Louise [address] [place] [address] Xr Imaging Referral ID Status Reason Start Date Expiration Date V isits Requested Visits Authorized [id number] Closed Auto-Generate d Referral 10/18/2021 11/17/2022 1 1 [facility] for visit Narrative* Diagnostic Procedure Only (Routine) - Closed Specialty Diagnoses / Procedures Referred By Contac t Referred To Contact BR [facility] Diagnoses Encounter for screening mammogram for breast cancer Procedures SABINO SCREENING W ALIZE SCREENING DIGITAL BREAST TOMOSYNTHESIS BI SCREENING MAMMOGRAPHY BI 2-VIEW BREAST INC Jimbo Egan, DIAMOND DRILLER HELPER.ROCKBOARD LATHER [address] [place] [address] Br Imaging [address] [place] [address] Referral ID Status Reason Start Date Expiration Date V isits Requested Visits Authorized [id number] Closed Auto-Generate d Referral 10/27/2022 11/26/2023 1 1 [facility] for visit Narrative* Diagnostic Procedure Only (Urgent) - Closed Specialty Diagnoses / Procedures Referred By Contac t Referred To Contact XR IMAGING Diagnoses Hip pain, acute, left Procedures XR HIP GENERAL 3V PELV/AP/LAT LEFT RADEX HIP UNILATERAL WITH PELVIS 2-3 VIEWS Ernie Belcher, DIAMOND DRILLER HELPER.REGIONAL CONTROLLER [address] [place] [address] [place] [address] Referral ID Status Reason Start Date Expiration Date V isits Requested Visits Authorized [id number] Closed Auto-Generate d Referral 12/31/2021 01/30/2023 [facility] Procedure Only (Routine) - Closed Specialty Diagnoses / Procedures Referred By Contac t Referred To Contact [facility] Diagnoses Nonrheumatic aortic valve stenosis Procedures NM SPECT/CT CARDIAC AMYLOID RP LOCLZJ MARY SPECT W/CT 1 AREA 1 DAY IMAGING Monica Aguila, DIAMOND DRILLER HELPER.REGIONAL CONTROLLER [address] [place] [phone] [facility] [address] [place] [address] Referral ID Status Reason Start Date Expiration Date V isits Requested Visits Authorized [id number] Closed Auto-Generate d Referral 01/08/2024 02/06/2025 1 1 [facility] Summary Purpose Family History No Family History Records FoundNo Family History Records FoundNo Family History Records FoundNo Family History Records FoundNo Family History Records FoundNo Family History Records Found Advance Directives No Advanced Directives Records FoundDocuments on File Type Date Recorded Patient Obgyn Hospitalist Physician Expl anation Advance Directive(s) 02/25/2018 1:19 PM [...] Documents on File Type Date Recorded Patient Obgyn Hospitalist Physician Expl anation Advance Directive(s) 03/24/2019 12:16 PM Advance Directive(s) 03/02/2018 11:28 AM Advance Directive(s) 02/25/2018 1:11 PM Advance Directive(s) 02/25/2018 1:19 PM Advance Directive(s) 01/25/2018 9:15 AM Advance Directive(s) 07/30/2017 2:22 PM Documents on File Type Date Recorded Patient Obgyn Hospitalist Physician Expl anation Advance Directive(s) 03/24/2019 12:16 PM Advance Directive(s) 03/02/2018 11:28 AM Advance Directive(s) 02/25/2018 1:11 PM Advance Directive(s) 02/25/2018 1:19 PM Advance Directive(s) 01/25/2018 9:15 AM Advance Directive(s) 07/30/2017 2:22 PM Latest Code Status on File Code Status Date Activated Date Inactivated Comments Full Code 03/02/2018 6:22 PM 03/03/2018 4:33 PM Documents on File Type Date Recorded Patient Obgyn Hospitalist Physician Expl anation Advance Directive(s) 02/25/2018 1:19 PM [...] Will No March 19 10:06am Power of Production Boring Machine Operator No March 19, 2023 10:06am Latest Code [...] Will No March 28 4:31pm Power of Production Boring Machine Operator No March 28, 2023 4:31pm Name of Medical Power of Production Boring Machine Operator diallo araiza March 26, 2023 5:06pm Advance Directive Response Recorded Date/ Time Living Will No March 31 5:01pm Power of Production Boring Machine Operator No March 31, 2023 5:01pm Name of Medical Power of Production Boring Machine Operator diallo araiza March 26, 2023 5:06pm Advance Directive Response Recorded Date/ Time Name of Medical Power of Production Boring Machine Operator Milena Araiza and Padmini Chang March 31, 2023 9:38pm Living Will Yes April 04 4:12pm Power of Production Boring Machine Operator Yes April 04, 2023 4:12pm Name of Medical Power of Production Boring Machine Operator diallo araiza March 26, 2023 5:06pm Advance Directive Response Recorded Date/ Time Name of Medical Power of Production Boring Machine Operator Milena Araiza and Padmini Chang March 31, 2023 9:38pm Name of Medical Power of Production Boring Machine Operator diallo araiza March 26, 2023 5:06pm Name of Medical Power of Production Boring Machine Operator Suzie Akin (Milena), friend April 09, 2023 2:27pm Living Will Yes April 09 024 2:27pm Power of Production Boring Machine Operator Yes April 09, 2023 2:27pm Advance Directive Response Recorded Date/ Time Name of Medical Power of Production Boring Machine Operator Milena Elainediandra and Padmini Chang March 31, 2023 10:38pm Name of Medical Power of Production Boring Machine Operator diallo araiza March 26, 2023 6:06pm Name of Medical Power of Production Boring Machine Operator Suzie Elainediandra (Milena), friend April 09, 2023 3:27pm Living Will Yes April 09 024 3:27pm Power of Production Boring Machine Operator Yes April 09, 2023 3:27pm Date Activated [...] Do you have a Healthcare Power of Production Boring Machine Operator? Yes May 28, 2024 8:37am Reason for Referral Specialty Diagnoses / Procedures Referred By Contac t Referred To Contact CT IMAGING Diagnoses Lung nodules Procedures CT CHEST WO IVCON DIAGNOSTIC COMPUTED TOMOGRAPHY THORAX W/O Florence Duncan MD [address] [place] [address] Ct Imaging Referral ID Status Reason Start Date Expiration Date Visits Requested Visits Authorized [id number] Authorized Auto-Generat ed Referral 12/29/2022 1 1 Specialty Diagnoses / Procedures Referred By Contac t Referred To Contact CT IMAGING Diagnoses Lung nodules Bronchiectasis without complication (HCC) Procedures CT CHEST WO IVCON DIAGNOSTIC COMPUTED TOMOGRAPHY THORAX W/O Florence Duncan MD [address] [place] [address] Ct Imaging Referral ID Status Reason Start Date Expiration Date Visits Requested Visits Authorized [id number] Authorized Auto-Generat ed Referral 01/23/2023 08/23/2023 1 1 Specialty Diagnoses / Procedures Referred By Contac t Referred To Contact CT IMAGING Diagnoses Lung nodules Procedures CT CHEST WO IVCON DIAGNOSTIC COMPUTED TOMOGRAPHY THORAX W/O Florence Duncan MD [address] [place] [address] [place] [address] Referral ID Status Reason Start Date Expiration Date V isits Requested Visits Authorized [id number] Closed Auto-Generate d Referral 11/29/2021 12/29/2022 1 1 Specialty Diagnoses / Procedures Referred By Contac t Referred To Contact Claudine Durán MD [address] [place] [address] Referral ID Status Reason Start Date Expiration Date Visits Re quested Visits Authorized [id number] Closed 1 1 Specialty Diagnoses / Procedures Referred By Contac t Referred To Contact Orthopedics Diagnoses Rheumatoid arthritis involving multiple sites with positive rheumatoid factor (HCC) Pain and swelling of right knee Procedures CONSULT TO ORTHOPAEDICS OFFICE/OUTPATIENT [facility] 60 MINUTES Austin Jimbo, DIAMOND DRILLER HELPER.ROCKBOARD LATHER [address] [place] [address] Referral ID Status Reason Start Date Expiration Date Visits Requested Visits Authorized [id number] Authorized PCP Requested Referral 07/13/2023 07/12/2024 1 1 Specialty Diagnoses / Procedures Referred By Contac t Referred To Contact CT IMAGING Diagnoses Disseminated histoplasmosis Procedures CT CHEST WO IVCON DIAGNOSTIC COMPUTED TOMOGRAPHY THORAX W/O CNTRST Geno Hart MD [address] [place] [address] [place] [address] Referral ID Status Reason Start Date Expiration Date V isits Requested Visits Authorized [id number] Closed Auto-Generate d Referral 08/30/2023 02/19/2024 1 1 Specialty Diagnoses / Procedures Referred By Contac t Referred To Contact Cardiology Diagnoses Aortic valve stenosis, etiology of cardiac valve disease unspecified Mitral valve stenosis, unspecified etiology Pericardial effusion Procedures CONSULT TO CARDIOLOGY OFFICE/OUTPATIENT [facility] 60 MINUTES AustinJimbo, DIAMOND DRILLER HELPER.ROCKBOARD LATHER [facility] [place] [address] Referral ID Status Reason Start Date Expiration Date Visits Requested Visits Authorized [id number] Authorized PCP Requested Referral 10/11/2023 10/10/2024 1 1 Specialty Diagnoses / Procedures Referred By Contac t Referred [facility] Contact [facility] Diagnoses Nonrheumatic aortic valve stenosis Nonrheumatic mitral valve stenosis Pericardial effusion Rheumatoid arthritis with positive rheumatoid factor, involving unspecified site (HCC) Histoplasmosis Procedures CARDIOVASCULAR MEDICINE OP FOLLOW UP APPT ORDER Ines Drew MD [address] [place] [address] [facility] [address] [place] [address] Referral ID Status Reason Start Date Expiration Date Visits Requested Visits Authorized [id number] Ref Not Required PCP Requested Referral 07/07/2024 01/07/2025 1 1 Specialty Diagnoses / Procedures Referred By Contac t Referred To Contact [facility] Procedures CARDIOVASCULAR MEDICINE OP [place]LLOW [place] [address] [place] [address] [address] Referral ID Status Reason Start Date Expiration Date Visits Requested Visits Authorized [id number] Authorized PCP Requested Referral 03/21/2024 03/21/2025 1 1 Specialty Diagnoses / Procedures Referred By Contac t Referred To Contact [facility] [place] Procedures CARDIOVASCULAR MEDICINE OP FOLLOW UP APPT ORDER Monica Aguila APRN.CNP [address] [place] [address] [address] Referral ID Status Reason Start Date Expiration Date Visits Requested Visits Authorized [id number] Authorized PCP Requested Referral 03/25/2024 03/25/2025 1 [...] Date High Risk Chronic Disease Home Monitoring [facility] 07/05/2022 Problem Noted Date Diagnosed Date High Risk Chronic Disease Home Monitoring [facility] 07/05/2022 Problem Noted Date Diagnosed Date High Risk Chronic Disease Home Monitoring [facility] 07/05/2022 Problem Noted Date Diagnosed Date High Risk Chronic Disease Home Monitoring [facility] 07/05/2022 Problem Noted Date Diagnosed Date High Risk Chronic Disease Home Monitoring [facility] 07/05/2022 Infection Onset Date Last Indicated Resolved Time COVID-19 Rule-Out 03/20/2023 03/20/2023 03/20/2023 1:58 PM EST Respiratory Rule-Out 03/20/2023 03/20/2023 024 1:58 PM EST Problem Noted Date Diagnosed Date High Risk Chronic Disease Home Monitoring [facility] 07/05/2022 Active Problems Noted Date Diagnosed Date High Risk Chronic Disease Home Monitoring [facility] 07/05/2022 Chief Complaint and Reason for Visit [...] AND EXTREMITY SWELLING RIGHT LEG SWELLING LABWORK CORRECTION LAB WORK LABWORK Reason for Visit Histoplasmosis [...] AND EXTREMITY SWELLING RIGHT LEG SWELLING LABWORK CORRECTION LAB WORK LABWORK LABWORK CORRECTION LAB WORK Reason for Visit Histoplasmosis History [...] AND EXTREMITY SWELLING RIGHT LEG SWELLING LABWORK CORRECTION LAB WORK LABWORK LABWORK LABWORK CORRECTION LAB WORK Reason for Visit Histoplasmosis History [...] AND EXTREMITY SWELLING RIGHT LEG SWELLING LABWORK CORRECTION LAB WORK LABWORK LABWORK LABWORK CORRECTION LAB WORK LABWORK Reason for Visit Histoplasmosis [...] AND EXTREMITY SWELLING RIGHT LEG SWELLING LABWORK CORRECTION LAB WORK LABWORK LABWORK LABWORK CORRECTION LAB WORK LABWORK CORRECTION LAB WORK Reason for Visit Histoplasmosis History [...] LEG SWELLING ADMISSION EXAM LABWORK ADMISSION EXAM CORRECTION LAB WORK LABWORK LABWORK LABWORK CORRECTION LAB WORK LABWORK LABWORK LABWORK LABWORK CORRECTION LAB WORK LABWORK Reason for Visit Histoplasmosis [...] section and content) DATE CREATED AUTHOR 08/15/[address] [facility] [facility] DATE CREATED AUTHOR AUTHOR'S ORGANIZ ATION 03/10/2018 [facility] DATE CREATED AUTHOR AUTHOR'S ORGANIZ ATION 09/04/2023 [facility] DATE CREATED AUTHOR AUTHOR'S ORGANIZ ATION 01/07/2024 [facility] DATE CREATED AUTHOR AUTHOR'S ORGANIZ ATION 08/09/2024 [facility] DATE CREATED AUTHOR AUTHOR'S ORGANIZ ATION 08/22/2024 [facility] Source Comments (unrecognize d section and content) In the event this informatio n is protected by the Federal Confidentiality of Alcohol and Drug Abuse Patient Records regulations: The Federal rules restrict any use of the information to criminally investigate or prosecute any alcohol or drug abuse patient.[facility] the event this information is protected by the Federal Confidentiality of Alcohol and Drug Abuse Patient Records regulations: The Federal rules restrict any use of the information to criminally investigate or prosecute any alcohol or drug abuse patient.[facility]In the event this information is protected by the Federal Confidentiality of Alcohol and Drug Abuse Patient Records regulations: The Federal rules restrict any use of the information to criminally investigate or prosecute any alcohol or drug abuse patient.[facility] HospitalIn the event this information is protected by the Federal Confidentiality of Alcohol and Drug Abuse Patient Records regulations: The Federal rules restrict any use of the information to criminally investigate or prosecute any alcohol or drug abuse patient.[facility] HospitalIn the event this information is protected by the Federal Confidentiality of Alcohol and Drug Abuse Patient Records regulations: The Federal rules restrict any use of the information to criminally investigate or prosecute any alcohol or drug abuse patient.[facility] HospitalIn the event this information is protected by the Federal Confidentiality of Alcohol and Drug Abuse Patient Records regulations: The Federal rules restrict any use of the information to criminally investigate or prosecute any alcohol or drug abuse patient.[facility] HospitalIn the event this information is protected by the Federal Confidentiality of Alcohol and Drug Abuse Patient Records regulations: The Federal rules restrict any use of the information to criminally investigate or prosecute any alcohol or drug abuse patient.[facility] HospitalIn the event this information is protected by the Federal Confidentiality of Alcohol and Drug Abuse Patient Records regulations: The Federal rules restrict any use of the information to criminally investigate or prosecute any alcohol or drug abuse patient.[facility] HospitalIn the event this information is protected by the Federal Confidentiality of Alcohol and Drug Abuse Patient Records regulations: The Federal rules restrict any use of the information to criminally investigate or prosecute any alcohol or drug abuse patient.[facility] HospitalIn the event this information is protected by the Federal Confidentiality of Alcohol and Drug Abuse Patient Records regulations: The Federal rules restrict any use of the information to criminally investigate or prosecute any alcohol or drug abuse patient.[facility] HospitalIn the event this information is protected by the Federal Confidentiality of Alcohol and Drug Abuse Patient Records regulations: The Federal rules restrict any use of the information to criminally investigate or prosecute any alcohol or drug abuse patient.[facility] HospitalIn the event this information is protected by the Federal Confidentiality of Alcohol and Drug Abuse Patient Records regulations: The Federal rules restrict any use of the information to criminally investigate or prosecute any alcohol or drug abuse patient.[facility] HospitalIn the event this information is protected by the Federal Confidentiality of Alcohol and Drug Abuse Patient Records regulations: The Federal rules restrict any use of the information to criminally investigate or prosecute any alcohol or drug abuse patient.[facility] HospitalIn the event this information is protected by the Federal Confidentiality of Alcohol and Drug Abuse Patient Records regulations: The Federal rules restrict any use of the information to criminally investigate or prosecute any alcohol or drug abuse patient.[facility] HospitalIn the event this information is protected by the Federal Confidentiality of Alcohol and Drug Abuse Patient Records regulations: The Federal rules restrict any use of the information to criminally investigate or prosecute any alcohol or drug abuse patient.[facility] HospitalIn the event this information is protected by the Federal Confidentiality of Alcohol and Drug Abuse Patient Records regulations: The Federal rules restrict any use of the information to criminally investigate or prosecute any alcohol or drug abuse patient.[facility] HospitalIn the event this information is protected by the Federal Confidentiality of Alcohol and Drug Abuse Patient Records regulations: The Federal rules restrict any use of the information to criminally investigate or prosecute any alcohol or drug abuse patient.[facility] HospitalIn the event this information is protected by the Federal Confidentiality of Alcohol and Drug Abuse Patient Records regulations: The Federal rules restrict any use of the information to criminally investigate or prosecute any alcohol or drug abuse patient.[facility] HospitalIn the event this information is protected by the Federal Confidentiality of Alcohol and Drug Abuse Patient Records regulations: The Federal rules restrict any use of the information to criminally investigate or prosecute any alcohol or drug abuse patient.[facility] HospitalIn the event this information is protected by the Federal Confidentiality of Alcohol and Drug Abuse Patient Records regulations: The Federal rules restrict any use of the information to criminally investigate or prosecute any alcohol or drug abuse patient.[facility] HospitalIn the event this information is protected by the Federal Confidentiality of Alcohol and Drug Abuse Patient Records regulations: The Federal rules restrict any use of the information to criminally investigate or prosecute any alcohol or drug abuse patient.[facility] HospitalIn the event this information is protected by the Federal Confidentiality of Alcohol and Drug Abuse Patient Records regulations: The Federal rules restrict any use of the information to criminally investigate or prosecute any alcohol or drug abuse patient.[facility] HospitalIn the event this information is protected by the Federal Confidentiality of Alcohol and Drug Abuse Patient Records regulations: The Federal rules restrict any use of the information to criminally investigate or prosecute any alcohol or drug abuse patient.[facility] HospitalIn the event this information is protected by the Federal Confidentiality of Alcohol and Drug Abuse Patient Records regulations: The Federal rules restrict any use of the information to criminally investigate or prosecute any alcohol or drug abuse patient.[facility] HospitalIn the event this information is protected by the Federal Confidentiality of Alcohol and Drug Abuse Patient Records regulations: The Federal rules restrict any use of the information to criminally investigate or prosecute any alcohol or drug abuse patient.[facility] HospitalIn the event this information is protected by the Federal Confidentiality of Alcohol and Drug Abuse Patient Records regulations: The Federal rules restrict any use of the information to criminally investigate or prosecute any alcohol or drug abuse patient.[facility] HospitalIn the event this information is protected by the Federal Confidentiality of Alcohol and Drug Abuse Patient Records regulations: The Federal rules restrict any use of the information to criminally investigate or prosecute any alcohol or drug abuse patient.[facility] HospitalIn the event this information is protected by the Federal Confidentiality of Alcohol and Drug Abuse Patient Records regulations: The Federal rules restrict any use of the information to criminally investigate or prosecute any alcohol or drug abuse patient.[facility] HospitalIn the event this information is protected [...] or prosecute any alcohol or drug abuse patient.[facility] HospitalIn the event this information is protected by the Federal Confidentiality of Alcohol and Drug Abuse Patient Records regulations: The Federal rules restrict any use of the information to criminally investigate or prosecute any alcohol or drug abuse patient.[facility] HospitalIn the event this information is protected by the Federal Confidentiality of Alcohol and Drug Abuse Patient Records regulations: The Federal rules restrict any use of the information to criminally investigate or prosecute any alcohol or drug abuse patient.[facility] HospitalIn the event this information is protected by the Federal Confidentiality of Alcohol and Drug Abuse Patient Records regulations: The Federal rules restrict any use of the information to criminally investigate or prosecute any alcohol or drug abuse patient.[facility] HospitalIn the event this information is protected by the Federal Confidentiality of Alcohol and Drug Abuse Patient Records regulations: The Federal rules restrict any use of the information to criminally investigate or prosecute any alcohol or drug abuse patient.[facility] HospitalIn the event this information is protected by the Federal Confidentiality of Alcohol and Drug Abuse Patient Records regulations: The Federal rules restrict any use of the information to criminally investigate or prosecute any alcohol or drug abuse patient.[facility] HospitalIn the event this information is protected by the Federal Confidentiality of Alcohol and Drug Abuse Patient Records regulations: The Federal rules restrict any use of the information to criminally investigate or prosecute any alcohol or drug abuse patient.[facility] HospitalIn the event this information is protected by the Federal Confidentiality of Alcohol and Drug Abuse Patient Records regulations: The Federal rules restrict any use of the information to criminally investigate or prosecute any alcohol or drug abuse patient.[facility] HospitalIn the event this information is protected by the Federal Confidentiality of Alcohol and Drug Abuse Patient Records regulations: The Federal rules restrict any use of the information to criminally investigate or prosecute any alcohol or drug abuse patient.[facility] HospitalIn the event this information is protected by the Federal Confidentiality of Alcohol and Drug Abuse Patient Records regulations: The Federal rules restrict any use of the information to criminally investigate or prosecute any alcohol or drug abuse patient.[facility] HospitalIn the event this information is protected by the Federal Confidentiality of Alcohol and Drug Abuse Patient Records regulations: The Federal rules restrict any use of the information to criminally investigate or prosecute any alcohol or drug abuse patient.[facility] HospitalIn the event this information is protected by the Federal Confidentiality of Alcohol and Drug Abuse Patient Records regulations: The Federal rules restrict any use of the information to criminally investigate or prosecute any alcohol or drug abuse patient.[facility] HospitalIn the event this information is protected by the Federal Confidentiality of Alcohol and Drug Abuse Patient Records regulations: The Federal rules restrict any use of the information to criminally investigate or prosecute any alcohol or drug abuse patient.[facility] HospitalIn the event this information is protected by the Federal Confidentiality of Alcohol and Drug Abuse Patient Records regulations: The Federal rules restrict any use of the information to criminally investigate or prosecute any alcohol or drug abuse patient.[facility] HospitalIn the event this information is protected by the Federal Confidentiality of Alcohol and Drug Abuse Patient Records regulations: The Federal rules restrict any use of the information to criminally investigate or prosecute any alcohol or drug abuse patient.[facility] HospitalIn the event this information is protected by the Federal Confidentiality of Alcohol and Drug Abuse Patient Records regulations: The Federal rules restrict any use of the information to criminally investigate or prosecute any alcohol or drug abuse patient.[facility] HospitalIn the event this information is protected by the Federal Confidentiality of Alcohol and Drug Abuse Patient Records regulations: The Federal rules restrict any use of the information to criminally investigate or prosecute any alcohol or drug abuse patient.[facility] HospitalIn the event this information is protected by the Federal Confidentiality of Alcohol and Drug Abuse Patient Records regulations: The Federal rules restrict any use of the information to criminally investigate or prosecute any alcohol or drug abuse patient.[facility] HospitalIn the event this information is protected by the Federal Confidentiality of Alcohol and Drug Abuse Patient Records regulations: The Federal rules restrict any use of the information to criminally investigate or prosecute any alcohol or drug abuse patient.[facility] HospitalIn the event this information is protected by the Federal Confidentiality of Alcohol and Drug Abuse Patient Records regulations: The Federal rules restrict any use of the information to criminally investigate or prosecute any alcohol or drug abuse patient.[facility] HospitalIn the event this information is protected by the Federal Confidentiality of Alcohol and Drug Abuse Patient Records regulations: The Federal rules restrict any use of the information to criminally investigate or prosecute any alcohol or drug abuse patient.[facility] HospitalIn the event this information is protected by the Federal Confidentiality of Alcohol and Drug Abuse Patient Records regulations: The Federal rules restrict any use of the information to criminally investigate or prosecute any alcohol or drug abuse patient.[facility] HospitalIn the event this information is protected by the Federal Confidentiality of Alcohol and Drug Abuse Patient Records regulations: The Federal rules restrict any use of the information to criminally investigate or prosecute any alcohol or drug abuse patient.[facility] HospitalIn the event this information is protected by the Federal Confidentiality of Alcohol and Drug Abuse Patient Records regulations: The Federal rules restrict any use of the information to criminally investigate or prosecute any alcohol or drug abuse patient.[facility] HospitalIn the event this information is protected by the Federal Confidentiality of Alcohol and Drug Abuse Patient Records regulations: The Federal rules restrict any use of the information to criminally investigate or prosecute any alcohol or drug abuse patient.[facility] HospitalIn the event this information is protected by the Federal Confidentiality of Alcohol and Drug Abuse Patient Records regulations: The Federal rules restrict any use of the information to criminally investigate or prosecute any alcohol or drug abuse patient.[facility] HospitalIn the event this information is protected by the Federal Confidentiality of Alcohol and Drug Abuse Patient Records regulations: The Federal rules restrict any use of the information to criminally investigate or prosecute any alcohol or drug abuse patient.[facility] HospitalIn the event this information is protected by the Federal Confidentiality of Alcohol and Drug Abuse Patient Records regulations: The Federal rules restrict any use of the information to criminally investigate or prosecute any alcohol or drug abuse patient.[facility] HospitalIn the event this information is protected by the Federal Confidentiality of Alcohol and Drug Abuse Patient Records regulations: The Federal rules restrict any use of the information to criminally investigate or prosecute any alcohol or drug abuse patient.[facility] HospitalIn the event this information is protected by the Federal Confidentiality of Alcohol and Drug Abuse Patient Records regulations: The Federal rules restrict any use of the information to criminally investigate or prosecute any alcohol or drug abuse patient.[facility] HospitalIn the event this information is protected by the Federal Confidentiality of Alcohol and Drug Abuse Patient Records regulations: The Federal rules restrict any use of the information to criminally investigate or prosecute any alcohol or drug abuse patient.[facility] HospitalIn the event this information is protected by the Federal Confidentiality of Alcohol and Drug Abuse Patient Records regulations: The Federal rules restrict any use of the information to criminally investigate or prosecute any alcohol or drug abuse patient.[facility] HospitalIn the event this information is protected by the Federal Confidentiality of Alcohol and Drug Abuse Patient Records regulations: The Federal rules restrict any use of the information to criminally investigate or prosecute any alcohol or drug abuse patient.[facility] HospitalIn the event this information is protected by the Federal Confidentiality of Alcohol and Drug Abuse Patient Records regulations: The Federal rules restrict any use of the information to criminally investigate or prosecute any alcohol or drug abuse patient.[facility] HospitalIn the event this information is protected by the Federal Confidentiality of Alcohol and Drug Abuse Patient Records regulations: The Federal rules restrict any use of the information to criminally investigate or prosecute any alcohol or drug abuse patient.[facility] HospitalIn the event this information is protected by the Federal Confidentiality of Alcohol and Drug Abuse Patient Records regulations: The Federal rules restrict any use of the information to criminally investigate or prosecute any alcohol or drug abuse patient.[facility] HospitalIn the event this information is protected by the Federal Confidentiality of Alcohol and Drug Abuse Patient Records regulations: The Federal rules restrict any use of the information to criminally investigate or prosecute any alcohol or drug abuse patient.[facility] HospitalIn the event this information is protected by the Federal Confidentiality of Alcohol and Drug Abuse Patient Records regulations: The Federal rules restrict any use of the information to criminally investigate or prosecute any alcohol or drug abuse patient.[facility] HospitalIn the event this information is protected by the Federal Confidentiality of Alcohol and Drug Abuse Patient Records regulations: The Federal rules restrict any use of the information to criminally investigate or prosecute any alcohol or drug abuse patient.[facility] HospitalIn the event this information is protected by the Federal Confidentiality of Alcohol and Drug Abuse Patient Records regulations: The Federal rules restrict any use of the information to criminally investigate or prosecute any alcohol or drug abuse patient.[facility] HospitalIn the event this information is protected by the Federal Confidentiality of Alcohol and Drug Abuse Patient Records regulations: The Federal rules restrict any use of the information to criminally investigate or prosecute any alcohol or drug abuse patient.[facility] HospitalIn the event this information is protected by the Federal Confidentiality of Alcohol and Drug Abuse Patient Records regulations: The Federal rules restrict any use of the information to criminally investigate or prosecute any alcohol or drug abuse patient.[facility] HospitalIn the event this information is protected by the Federal Confidentiality of Alcohol and Drug Abuse Patient Records regulations: The Federal rules restrict any use of the information to criminally investigate or prosecute any alcohol or drug abuse patient.[facility] HospitalIn the event this information is protected by the Federal Confidentiality of Alcohol and Drug Abuse Patient Records regulations: The Federal rules restrict any use of the information to criminally investigate or prosecute any alcohol or drug abuse patient.[facility] HospitalIn the event this information is protected by the Federal Confidentiality of Alcohol and Drug Abuse Patient Records regulations: The Federal rules restrict any use of the information to criminally investigate or prosecute any alcohol or drug abuse patient.[facility] HospitalIn the event this information is protected by the Federal Confidentiality of Alcohol and Drug Abuse Patient Records regulations: The Federal rules restrict any use of the information to criminally investigate or prosecute any alcohol or drug abuse patient.[facility] HospitalIn the event this information is protected by the Federal Confidentiality of Alcohol and Drug Abuse Patient Records regulations: The Federal rules restrict any use of the information to criminally investigate or prosecute any alcohol or drug abuse patient.[facility] HospitalIn the event this information is protected by the Federal Confidentiality of Alcohol and Drug Abuse Patient Records regulations: The Federal rules restrict any use of the information to criminally investigate or prosecute any alcohol or drug abuse patient.[facility] HospitalIn the event this information is protected by the Federal Confidentiality of Alcohol and Drug Abuse Patient Records regulations: The Federal rules restrict any use of the information to criminally investigate or prosecute any alcohol or drug abuse patient.[facility] HospitalIn the event this information is protected [...] or prosecute any alcohol or drug abuse patient.[facility] HospitalIn the event this information is protected by the Federal Confidentiality of Alcohol and Drug Abuse Patient Records regulations: The Federal rules restrict any use of the information to criminally investigate or prosecute any alcohol or drug abuse patient.[facility] HospitalIn the event this information is protected by the Federal Confidentiality of Alcohol and Drug Abuse Patient Records regulations: The Federal rules restrict any use of the information to criminally investigate or prosecute any alcohol or drug abuse patient.[facility] HospitalIn the event this information is protected by the Federal Confidentiality of Alcohol and Drug Abuse Patient Records regulations: The Federal rules restrict any use of the information to criminally investigate or prosecute any alcohol or drug abuse patient.[facility] HospitalIn the event this information is protected by the Federal Confidentiality of Alcohol and Drug Abuse Patient Records regulations: The Federal rules restrict any use of the information to criminally investigate or prosecute any alcohol or drug abuse patient.[facility] HospitalIn the event this information is protected by the Federal Confidentiality of Alcohol and Drug Abuse Patient Records regulations: The Federal rules restrict any use of the information to criminally investigate or prosecute any alcohol or drug abuse patient.[facility] HospitalIn the event this information is protected by the Federal Confidentiality of Alcohol and Drug Abuse Patient Records regulations: The Federal rules restrict any use of the information to criminally investigate or prosecute any alcohol or drug abuse patient.[facility]In the event this information is protected by the Federal Confidentiality of Alcohol and Drug Abuse Patient Records regulations: The Federal rules restrict any use of the information to criminally investigate or prosecute any alcohol or drug abuse patient.[facility] HospitalIn the event this information is protected by the Federal Confidentiality of Alcohol and Drug Abuse Patient Records regulations: The Federal rules restrict any use of the information to criminally investigate or prosecute any alcohol or drug abuse patient.[facility] HospitalIn the event this information is protected by the Federal Confidentiality of Alcohol and Drug Abuse Patient Records regulations: The Federal rules restrict any use of the information to criminally investigate or prosecute any alcohol or drug abuse patient.[facility] HospitalIn the event this information is protected by the Federal Confidentiality of Alcohol and Drug Abuse Patient Records regulations: The Federal rules restrict any use of the information to criminally investigate or prosecute any alcohol or drug abuse patient.[facility] HospitalIn the event this information is protected by the Federal Confidentiality of Alcohol and Drug Abuse Patient Records regulations: The Federal rules restrict any use of the information to criminally investigate or prosecute any alcohol or drug abuse patient.[facility] HospitalIn the event this information is protected by the Federal Confidentiality of Alcohol and Drug Abuse Patient Records regulations: The Federal rules restrict any use of the information to criminally investigate or prosecute any alcohol or drug abuse patient.[facility] HospitalIn the event this information is protected by the Federal Confidentiality of Alcohol and Drug Abuse Patient Records regulations: The Federal rules restrict any use of the information to criminally investigate or prosecute any alcohol or drug abuse patient.[facility] HospitalIn the event this information is protected by the Federal Confidentiality of Alcohol and Drug Abuse Patient Records regulations: The Federal rules restrict any use of the information to criminally investigate or prosecute any alcohol or drug abuse patient.[facility] HospitalIn the event this information is protected by the Federal Confidentiality of Alcohol and Drug Abuse Patient Records regulations: The Federal rules restrict any use of the information to criminally investigate or prosecute any alcohol or drug abuse patient.[facility] HospitalIn the event this information is protected by the Federal Confidentiality of Alcohol and Drug Abuse Patient Records regulations: The Federal rules restrict any use of the information to criminally investigate or prosecute any alcohol or drug abuse patient.[facility] HospitalIn the event this information is protected by the Federal Confidentiality of Alcohol and Drug Abuse Patient Records regulations: The Federal rules restrict any use of the information to criminally investigate or prosecute any alcohol or drug abuse patient.[facility] HospitalIn the event this information is protected by the Federal Confidentiality of Alcohol and Drug Abuse Patient Records regulations: The Federal rules restrict any use of the information to criminally investigate or prosecute any alcohol or drug abuse patient.[facility] HospitalIn the event this information is protected by the Federal Confidentiality of Alcohol and Drug Abuse Patient Records regulations: The Federal rules restrict any use of the information to criminally investigate or prosecute any alcohol or drug abuse patient.[facility] HospitalIn the event this information is protected by the Federal Confidentiality of Alcohol and Drug Abuse Patient Records regulations: The Federal rules restrict any use of the information to criminally investigate or prosecute any alcohol or drug abuse patient.[facility] HospitalIn the event this information is protected by the Federal Confidentiality of Alcohol and Drug Abuse Patient Records regulations: The Federal rules restrict any use of the information to criminally investigate or prosecute any alcohol or drug abuse patient.[facility] HospitalIn the event this information is protected by the Federal Confidentiality of Alcohol and Drug Abuse Patient Records regulations: The Federal rules restrict any use of the information to criminally investigate or prosecute any alcohol or drug abuse patient.[facility] HospitalIn the event this information is protected by the Federal Confidentiality of Alcohol and Drug Abuse Patient Records regulations: The Federal rules restrict any use of the information to criminally investigate or prosecute any alcohol or drug abuse patient.[facility] HospitalIn the event this information is protected by the Federal Confidentiality of Alcohol and Drug Abuse Patient Records regulations: The Federal rules restrict any use of the information to criminally investigate or prosecute any alcohol or drug abuse patient.[facility] HospitalIn the event this information is protected by the Federal Confidentiality of Alcohol and Drug Abuse Patient Records regulations: The Federal rules restrict any use of the information to criminally investigate or prosecute any alcohol or drug abuse patient.[facility] HospitalIn the event this information is protected by the Federal Confidentiality of Alcohol and Drug Abuse Patient Records regulations: The Federal rules restrict any use of the information to criminally investigate or prosecute any alcohol or drug abuse patient.[facility] HospitalIn the event this information is protected by the Federal Confidentiality of Alcohol and Drug Abuse Patient Records regulations: The Federal rules restrict any use of the information to criminally investigate or prosecute any alcohol or drug abuse patient.[facility] HospitalIn the event this information is protected by the Federal Confidentiality of Alcohol and Drug Abuse Patient Records regulations: The Federal rules restrict any use of the information to criminally investigate or prosecute any alcohol or drug abuse patient.[facility] HospitalIn the event this information is protected by the Federal Confidentiality of Alcohol and Drug Abuse Patient Records regulations: The Federal rules restrict any use of the information to criminally investigate or prosecute any alcohol or drug abuse patient.[facility] HospitalIn the event this information is protected by the Federal Confidentiality of Alcohol and Drug Abuse Patient Records regulations: The Federal rules restrict any use of the information to criminally investigate or prosecute any alcohol or drug abuse patient.[facility] HospitalIn the event this information is protected by the Federal Confidentiality of Alcohol and Drug Abuse Patient Records regulations: The Federal rules restrict any use of the information to criminally investigate or prosecute any alcohol or drug abuse patient.[facility] HospitalIn the event this information is protected by the Federal Confidentiality of Alcohol and Drug Abuse Patient Records regulations: The Federal rules restrict any use of the information to criminally investigate or prosecute any alcohol or drug abuse patient.[facility] HospitalIn the event this information is protected by the Federal Confidentiality of Alcohol and Drug Abuse Patient Records regulations: The Federal rules restrict any use of the information to criminally investigate or prosecute any alcohol or drug abuse patient.[facility] HospitalIn the event this information is protected by the Federal Confidentiality of Alcohol and Drug Abuse Patient Records regulations: The Federal rules restrict any use of the information to criminally investigate or prosecute any alcohol or drug abuse patient.[facility] HospitalIn the event this information is protected by the Federal Confidentiality of Alcohol and Drug Abuse Patient Records regulations: The Federal rules restrict any use of the information to criminally investigate or prosecute any alcohol or drug abuse patient.[facility] HospitalIn the event this information is protected by the Federal Confidentiality of Alcohol and Drug Abuse Patient Records regulations: The Federal rules restrict any use of the information to criminally investigate or prosecute any alcohol or drug abuse patient.[facility] HospitalIn the event this information is protected by the Federal Confidentiality of Alcohol and Drug Abuse Patient Records regulations: The Federal rules restrict any use of the information to criminally investigate or prosecute any alcohol or drug abuse patient.[facility] HospitalIn the event this information is protected by the Federal Confidentiality of Alcohol and Drug Abuse Patient Records regulations: The Federal rules restrict any use of the information to criminally investigate or prosecute any alcohol or drug abuse patient.[facility] HospitalIn the event this information is protected by the Federal Confidentiality of Alcohol and Drug Abuse Patient Records regulations: The Federal rules restrict any use of the information to criminally investigate or prosecute any alcohol or drug abuse patient.[facility] HospitalIn the event this information is protected by the Federal Confidentiality of Alcohol and Drug Abuse Patient Records regulations: The Federal rules restrict any use of the information to criminally investigate or prosecute any alcohol or drug abuse patient.[facility] HospitalIn the event this information is protected by the Federal Confidentiality of Alcohol and Drug Abuse Patient Records regulations: The Federal rules restrict any use of the information to criminally investigate or prosecute any alcohol or drug abuse patient.[facility] HospitalIn the event this information is protected by the Federal Confidentiality of Alcohol and Drug Abuse Patient Records regulations: The Federal rules restrict any use of the information to criminally investigate or prosecute any alcohol or drug abuse patient.[facility] HospitalIn the event this information is protected by the Federal Confidentiality of Alcohol and Drug Abuse Patient Records regulations: The Federal rules restrict any use of the information to criminally investigate or prosecute any alcohol or drug abuse patient.[facility] HospitalIn the event this information is protected by the Federal Confidentiality of Alcohol and Drug Abuse Patient Records regulations: The Federal rules restrict any use of the information to criminally investigate or prosecute any alcohol or drug abuse patient.[facility] HospitalIn the event this information is protected by the Federal Confidentiality of Alcohol and Drug Abuse Patient Records regulations: The Federal rules restrict any use of the information to criminally investigate or prosecute any alcohol or drug abuse patient.[facility] HospitalIn the event this information is protected by the Federal Confidentiality of Alcohol and Drug Abuse Patient Records regulations: The Federal rules restrict any use of the information to criminally investigate or prosecute any alcohol or drug abuse patient.[facility] HospitalIn the event this information is protected by the Federal Confidentiality of Alcohol and Drug Abuse Patient Records regulations: The Federal rules restrict any use of the information to criminally investigate or prosecute any alcohol or drug abuse patient.[facility] HospitalIn the event this information is protected by the Federal Confidentiality of Alcohol and Drug Abuse Patient Records regulations: The Federal rules restrict any use of the information to criminally investigate or prosecute any alcohol or drug abuse patient.[facility] HospitalIn the event this information is protected [...] or prosecute any alcohol or drug abuse patient.[facility] HospitalIn the event this information is protected by the Federal Confidentiality of Alcohol and Drug Abuse Patient Records regulations: The Federal rules restrict any use of the information to criminally investigate or prosecute any alcohol or drug abuse patient.[facility] HospitalIn the event this information is protected by the Federal Confidentiality of Alcohol and Drug Abuse Patient Records regulations: The Federal rules restrict any use of the information to criminally investigate or prosecute any alcohol or drug abuse patient.[facility] HospitalIn the event this information is protected by the Federal Confidentiality of Alcohol and Drug Abuse Patient Records regulations: The Federal rules restrict any use of the information to criminally investigate or prosecute any alcohol or drug abuse patient.[facility] HospitalIn the event this information is protected by the Federal Confidentiality of Alcohol and Drug Abuse Patient Records regulations: The Federal rules restrict any use of the information to criminally investigate or prosecute any alcohol or drug abuse patient.[facility] HospitalIn the event this information is protected by the Federal Confidentiality of Alcohol and Drug Abuse Patient Records regulations: The Federal rules restrict any use of the information to criminally investigate or prosecute any alcohol or drug abuse patient.[facility] HospitalIn the event this information is protected by the Federal Confidentiality of Alcohol and Drug Abuse Patient Records regulations: The Federal rules restrict any use of the information to criminally investigate or prosecute any alcohol or drug abuse patient.[facility] HospitalIn the event this information is protected by the Federal Confidentiality of Alcohol and Drug Abuse Patient Records regulations: The Federal rules restrict any use of the information to criminally investigate or prosecute any alcohol or drug abuse patient.[facility] HospitalIn the event this information is protected by the Federal Confidentiality of Alcohol and Drug Abuse Patient Records regulations: The Federal rules restrict any use of the information to criminally investigate or prosecute any alcohol or drug abuse patient.[facility] HospitalIn the event this information is protected by the Federal Confidentiality of Alcohol and Drug Abuse Patient Records regulations: The Federal rules restrict any use of the information to criminally investigate or prosecute any alcohol or drug abuse patient.[facility] HospitalIn the event this information is protected by the Federal Confidentiality of Alcohol and Drug Abuse Patient Records regulations: The Federal rules restrict any use of the information to criminally investigate or prosecute any alcohol or drug abuse patient.[facility] HospitalIn the event this information is protected by the Federal Confidentiality of Alcohol and Drug Abuse Patient Records regulations: The Federal rules restrict any use of the information to criminally investigate or prosecute any alcohol or drug abuse patient.[facility] HospitalIn the event this information is protected by the Federal Confidentiality of Alcohol and Drug Abuse Patient Records regulations: The Federal rules restrict any use of the information to criminally investigate or prosecute any alcohol or drug abuse patient.[facility] HospitalIn the event this information is protected by the Federal Confidentiality of Alcohol and Drug Abuse Patient Records regulations: The Federal rules restrict any use of the information to criminally investigate or prosecute any alcohol or drug abuse patient.[facility] HospitalIn the event this information is protected by the Federal Confidentiality of Alcohol and Drug Abuse Patient Records regulations: The Federal rules restrict any use of the information to criminally investigate or prosecute any alcohol or drug abuse patient.[facility] HospitalIn the event this information is protected by the Federal Confidentiality of Alcohol and Drug Abuse Patient Records regulations: The Federal rules restrict any use of the information to criminally investigate or prosecute any alcohol or drug abuse patient.[facility] HospitalIn the event this information is protected by the Federal Confidentiality of Alcohol and Drug Abuse Patient Records regulations: The Federal rules restrict any use of the information to criminally investigate or prosecute any alcohol or drug abuse patient.[facility] HospitalIn the event this information is protected by the Federal Confidentiality of Alcohol and Drug Abuse Patient Records regulations: The Federal rules restrict any use of the information to criminally investigate or prosecute any alcohol or drug abuse patient.[facility] HospitalIn the event this information is protected by the Federal Confidentiality of Alcohol and Drug Abuse Patient Records regulations: The Federal rules restrict any use of the information to criminally investigate or prosecute any alcohol or drug abuse patient.[facility] HospitalIn the event this information is protected by the Federal Confidentiality of Alcohol and Drug Abuse Patient Records regulations: The Federal rules restrict any use of the information to criminally investigate or prosecute any alcohol or drug abuse patient.[facility] HospitalIn the event this information is protected by the Federal Confidentiality of Alcohol and Drug Abuse Patient Records regulations: The Federal rules restrict any use of the information to criminally investigate or prosecute any alcohol or drug abuse patient.[facility] HospitalIn the event this information is protected by the Federal Confidentiality of Alcohol and Drug Abuse Patient Records regulations: The Federal rules restrict any use of the information to criminally investigate or prosecute any alcohol or drug abuse patient.[facility] HospitalIn the event this information is protected by the Federal Confidentiality of Alcohol and Drug Abuse Patient Records regulations: The Federal rules restrict any use of the information to criminally investigate or prosecute any alcohol or drug abuse patient.[facility] HospitalIn the event this information is protected by the Federal Confidentiality of Alcohol and Drug Abuse Patient Records regulations: The Federal rules restrict any use of the information to criminally investigate or prosecute any alcohol or drug abuse patient.[facility] HospitalIn the event this information is protected by the Federal Confidentiality of Alcohol and Drug Abuse Patient Records regulations: The Federal rules restrict any use of the information to criminally investigate or prosecute any alcohol or drug abuse patient.[facility] HospitalIn the event this information is protected by the Federal Confidentiality of Alcohol and Drug Abuse Patient Records regulations: The Federal rules restrict any use of the information to criminally investigate or prosecute any alcohol or drug abuse patient.[facility] HospitalIn the event this information is protected by the Federal Confidentiality of Alcohol and Drug Abuse Patient Records regulations: The Federal rules restrict any use of the information to criminally investigate or prosecute any alcohol or drug abuse patient.[facility] HospitalIn the event this information is protected by the Federal Confidentiality of Alcohol and Drug Abuse Patient Records regulations: The Federal rules restrict any use of the information to criminally investigate or prosecute any alcohol or drug abuse patient.[facility] HospitalIn the event this information is protected by the Federal Confidentiality of Alcohol and Drug Abuse Patient Records regulations: The Federal rules restrict any use of the information to criminally investigate or prosecute any alcohol or drug abuse patient.[facility] HospitalIn the event this information is protected by the Federal Confidentiality of Alcohol and Drug Abuse Patient Records regulations: The Federal rules restrict any use of the information to criminally investigate or prosecute any alcohol or drug abuse patient.[facility] HospitalIn the event this information is protected by the Federal Confidentiality of Alcohol and Drug Abuse Patient Records regulations: The Federal rules restrict any use of the information to criminally investigate or prosecute any alcohol or drug abuse patient.[facility] HospitalIn the event this information is protected by the Federal Confidentiality of Alcohol and Drug Abuse Patient Records regulations: The Federal rules restrict any use of the information to criminally investigate or prosecute any alcohol or drug abuse patient.[facility] HospitalIn the event this information is protected by the Federal Confidentiality of Alcohol and Drug Abuse Patient Records regulations: The Federal rules restrict any use of the information to criminally investigate or prosecute any alcohol or drug abuse patient.[facility] HospitalIn the event this information is protected by the Federal Confidentiality of Alcohol and Drug Abuse Patient Records regulations: The Federal rules restrict any use of the information to criminally investigate or prosecute any alcohol or drug abuse patient.[facility] HospitalIn the event this information is protected by the Federal Confidentiality of Alcohol and Drug Abuse Patient Records regulations: The Federal rules restrict any use of the information to criminally investigate or prosecute any alcohol or drug abuse patient.[facility] HospitalIn the event this information is protected by the Federal Confidentiality of Alcohol and Drug Abuse Patient Records regulations: The Federal rules restrict any use of the information to criminally investigate or prosecute any alcohol or drug abuse patient.[facility] HospitalIn the event this information is protected by the Federal Confidentiality of Alcohol and Drug Abuse Patient Records regulations: The Federal rules restrict any use of the information to criminally investigate or prosecute any alcohol or drug abuse patient.[facility] HospitalIn the event this information is protected by the Federal Confidentiality of Alcohol and Drug Abuse Patient Records regulations: The Federal rules restrict any use of the information to criminally investigate or prosecute any alcohol or drug abuse patient.[facility] HospitalIn the event this information is protected by the Federal Confidentiality of Alcohol and Drug Abuse Patient Records regulations: The Federal rules restrict any use of the information to criminally investigate or prosecute any alcohol or drug abuse patient.[facility] HospitalIn the event this information is protected by the Federal Confidentiality of Alcohol and Drug Abuse Patient Records regulations: The Federal rules restrict any use of the information to criminally investigate or prosecute any alcohol or drug abuse patient.[facility] HospitalIn the event this information is protected by the Federal Confidentiality of Alcohol and Drug Abuse Patient Records regulations: The Federal rules restrict any use of the information to criminally investigate or prosecute any alcohol or drug abuse patient.[facility] HospitalIn the event this information is protected by the Federal Confidentiality of Alcohol and Drug Abuse Patient Records regulations: The Federal rules restrict any use of the information to criminally investigate or prosecute any alcohol or drug abuse patient.[facility] HospitalIn the event this information is protected by the Federal Confidentiality of Alcohol and Drug Abuse Patient Records regulations: The Federal rules restrict any use of the information to criminally investigate or prosecute any alcohol or drug abuse patient.[facility] HospitalIn the event this information is protected by the Federal Confidentiality of Alcohol and Drug Abuse Patient Records regulations: The Federal rules restrict any use of the information to criminally investigate or prosecute any alcohol or drug abuse patient.[facility] HospitalIn the event this information is protected by the Federal Confidentiality of Alcohol and Drug Abuse Patient Records regulations: The Federal rules restrict any use of the information to criminally investigate or prosecute any alcohol or drug abuse patient.[facility] HospitalIn the event this information is protected by the Federal Confidentiality of Alcohol and Drug Abuse Patient Records regulations: The Federal rules restrict any use of the information to criminally investigate or prosecute any alcohol or drug abuse patient.[facility] HospitalIn the event this information is protected by the Federal Confidentiality of Alcohol and Drug Abuse Patient Records regulations: The Federal rules restrict any use of the information to criminally investigate or prosecute any alcohol or drug abuse patient.[facility] HospitalIn the event this information is protected by the Federal Confidentiality of Alcohol and Drug Abuse Patient Records regulations: The Federal rules restrict any use of the information to criminally investigate or prosecute any alcohol or drug abuse patient.[facility] HospitalIn the event this information is protected by the Federal Confidentiality of Alcohol and Drug Abuse Patient Records regulations: The Federal rules restrict any use of the information to criminally investigate or prosecute any alcohol or drug abuse patient.[facility] HospitalIn the event this information is protected [...] or prosecute any alcohol or drug abuse patient.[facility] HospitalIn the event this information is protected by the Federal Confidentiality of Alcohol and Drug Abuse Patient Records regulations: The Federal rules restrict any use of the information to criminally investigate or prosecute any alcohol or drug abuse patient.[facility] HospitalIn the event this information is protected by the Federal Confidentiality of Alcohol and Drug Abuse Patient Records regulations: The Federal rules restrict any use of the information to criminally investigate or prosecute any alcohol or drug abuse patient.[facility] HospitalIn the event this information is protected by the Federal Confidentiality of Alcohol and Drug Abuse Patient Records regulations: The Federal rules restrict any use of the information to criminally investigate or prosecute any alcohol or drug abuse patient.[facility] HospitalIn the event this information is protected by the Federal Confidentiality of Alcohol and Drug Abuse Patient Records regulations: The Federal rules restrict any use of the information to criminally investigate or prosecute any alcohol or drug abuse patient.[facility] HospitalIn the event this information is protected by the Federal Confidentiality of Alcohol and Drug Abuse Patient Records regulations: The Federal rules restrict any use of the information to criminally investigate or prosecute any alcohol or drug abuse patient.[facility] HospitalIn the event this information is protected by the Federal Confidentiality of Alcohol and Drug Abuse Patient Records regulations: The Federal rules restrict any use of the information to criminally investigate or prosecute any alcohol or drug abuse patient.[facility] HospitalIn the event this information is protected by the Federal Confidentiality of Alcohol and Drug Abuse Patient Records regulations: The Federal rules restrict any use of the information to criminally investigate or prosecute any alcohol or drug abuse patient.[facility] HospitalIn the event this information is protected by the Federal Confidentiality of Alcohol and Drug Abuse Patient Records regulations: The Federal rules restrict any use of the information to criminally investigate or prosecute any alcohol or drug abuse patient.[facility] HospitalIn the event this information is protected by the Federal Confidentiality of Alcohol and Drug Abuse Patient Records regulations: The Federal rules restrict any use of the information to criminally investigate or prosecute any alcohol or drug abuse patient.[facility] HospitalIn the event this information is protected by the Federal Confidentiality of Alcohol and Drug Abuse Patient Records regulations: The Federal rules restrict any use of the information to criminally investigate or prosecute any alcohol or drug abuse patient.[facility] HospitalIn the event this information is protected by the Federal Confidentiality of Alcohol and Drug Abuse Patient Records regulations: The Federal rules restrict any use of the information to criminally investigate or prosecute any alcohol or drug abuse patient.[facility] HospitalIn the event this information is protected by the Federal Confidentiality of Alcohol and Drug Abuse Patient Records regulations: The Federal rules restrict any use of the information to criminally investigate or prosecute any alcohol or drug abuse patient.[facility] HospitalIn the event this information is protected by the Federal Confidentiality of Alcohol and Drug Abuse Patient Records regulations: The Federal rules restrict any use of the information to criminally investigate or prosecute any alcohol or drug abuse patient.[facility] HospitalIn the event this information is protected by the Federal Confidentiality of Alcohol and Drug Abuse Patient Records regulations: The Federal rules restrict any use of the information to criminally investigate or prosecute any alcohol or drug abuse patient.[facility] HospitalIn the event this information is protected by the Federal Confidentiality of Alcohol and Drug Abuse Patient Records regulations: The Federal rules restrict any use of the information to criminally investigate or prosecute any alcohol or drug abuse patient.[facility] HospitalIn the event this information is protected by the Federal Confidentiality of Alcohol and Drug Abuse Patient Records regulations: The Federal rules restrict any use of the information to criminally investigate or prosecute any alcohol or drug abuse patient.[facility] HospitalIn the event this information is protected by the Federal Confidentiality of Alcohol and Drug Abuse Patient Records regulations: The Federal rules restrict any use of the information to criminally investigate or prosecute any alcohol or drug abuse patient.[facility] HospitalIn the event this information is protected by the Federal Confidentiality of Alcohol and Drug Abuse Patient Records regulations: The Federal rules restrict any use of the information to criminally investigate or prosecute any alcohol or drug abuse patient.[facility] HospitalIn the event this information is protected by the Federal Confidentiality of Alcohol and Drug Abuse Patient Records regulations: The Federal rules restrict any use of the information to criminally investigate or prosecute any alcohol or drug abuse patient.[facility] HospitalIn the event this information is protected by the Federal Confidentiality of Alcohol and Drug Abuse Patient Records regulations: The Federal rules restrict any use of the information to criminally investigate or prosecute any alcohol or drug abuse patient.[facility] Reason for Visit (unrecogniz ed section [...] REAL TIME WITH IMAGE LIMITED Brenda Shankar APRN.REGIONAL CONTROLLER [address] [place] [address] Br Imaging [address] [place] [address] Referral ID Status Reason Start Date Expiration Date V isits Requested Visits Authorized [id number] Closed Auto-Generate d Referral 09/05/2021 10/05/2022 1 1 Reason Comments Radiology Mammogram Specialty Diagnoses / Procedures Referred By Divya t Referred To Contact BR IM[facility] Diagnoses Abnormal mammogram Procedures SABINO DIAGNOSTIC LT DIAGNOSTIC MAMMOGRAPHY COMPUTER-AIDED DETCJ UNI Brenda Shankar, DIAMOND DRILLER HELPER.REGIONAL CONTROLLER [address] [place] [address] Br Imaging [address] [place] [address] Referral ID Status Reason Start Date Expiration Date V isits Requested Visits Authorized [id number] Closed Auto-Generate d Referral 09/05/2021 10/05/2022 1 [...] NEW HIGH MDM 60-74 MINUTES Twyla Cuevas DIAMOND DRILLER HELPER.REGIONAL CONTROLLER [address] [place] [address] Referral ID Status Reason Start Date Expiration Date Visits Requested Visits Authorized [id number] Pending Review PCP Requested Referral 10/11/2022 10/11/2023 1 1 Reason Onset Date Comments Refill Request 12/20/[address] Specialty Diagnoses / Procedures Referred By Contac t Referred To Contact CT IMAGING Diagnoses Lung nodules Procedures CT CHEST WO IVCON DIAGNOSTIC COMPUTED TOMOGRAPHY THORAX W/O Florence Duncan MD [address] [place] [address] [place] [address] Referral ID Status Reason Start Date Expiration Date V isits Requested Visits Authorized [id number] Closed Auto-Generate d Referral 11/29/2021 12/29/2022 1 [...] Reason Comments Discharge Skilled Rehab Discharged from [facility] Reason Onset Date Comments Refill [...] W/O Geno Lopez MD [address] [address] [place] [address] Referral ID Status Reason Start Date Expiration Date V isits Requested Visits Authorized [id number] Closed Auto-Generate d Referral 08/30/2023 02/19/2024 1 1 Reason Onset Date Comments Refill Request 08/30/2023 Reason Onset Date Comments Community Monitoring Outreach 08/31/2023 F/ U engagement CDM Home Monitoring Reason Comments Histoplasmosis Reason Comments Hospital F/U [facility] ED/Hospital disc harge 08/18/23 Reason Comments [...] years)Recent BLE Edema and Discomfort- compression/diure[facility] for BleedingDoesn't like taking diuretics when [...] NEW HIGH MDM 60 MINUTES Jimbo Swanson, DIAMOND DRILLER HELPER.ROCKBOARD LATHER [address] [place] [address] Referral ID Status Reason Start Date Expiration Date V isits Requested Visits Authorized [id number] Closed PCP Requested Referral 10/11/2023 10/10/2024 1 [...] ABD&PLVIS CNTRST MTRL W/WO CNTRST Monica Zavala, DIAMOND DRILLER HELPER.REGIONAL CONTROLLER [address] [place] [address] Ct Imaging [place] [address] Referral ID Status Reason Start Date Expiration Date V isits Requested Visits Authorized [id number] Closed Auto-Generate d Referral 01/08/2024 02/06/2025 1 1 Reason Comments Patient Education Reason Comments Spirometry Specialty Diagnoses / Procedures Referred By Contac t Referred To Contact [facility] Diagnoses Nonrheumatic aortic valve stenosis Procedures SPIROMETRY BASELINE ONLY SPMTRY W/VC EXPIRATORY [place] W/WO MXML VOL VNTJ Trent-Monica Olivares, DIAMOND DRILLER HELPER.REGIONAL CONTROLLER [address] [place] [phone] Respiratory [place] [address] [place] [address] Referral ID Status Reason Start Date Expiration Date V isits Requested Visits Authorized [id number] Closed Auto-Generate d Referral 01/08/2024 02/06/2025 1 1 Specialty Diagnoses / Procedures Referred By Contac t Referred To Contact [facility] Diagnoses Nonrheumatic aortic valve stenosis Procedures LUNG DIFFUSION CAPACITY (DLCO) DIFFUSING CAPACITY Trent-Monica Olivares, DIAMOND DRILLER HELPER.REGIONAL CONTROLLER [address] [place] [phone] [place] [address] Referral ID Status Reason Start Date Expiration Date V isits Requested Visits Authorized [id number] Closed Auto-Generate d Referral 01/08/2024 02/06/2025 1 1 Reason Comments Aortic Stenosis Reason Comments Radiology NM Specialty Diagnoses / Procedures [facility] Contact [facility]LEC[facility] FUNCTIONAL IMAGING Diagnoses Nonrheumatic aortic valve stenosis Procedures NM SPECT/CT CARDIAC AMYLOID RP LOCLZJ MARY SPECT W/CT 1 AREA 1 DAY IMAGING Delta-Monica Olivares, CONNIE.REGIONAL CONTROLLER [address] [place] [phone] Molecular & Functional Imaging [address] [place] [address] Referral ID Status Reason Start Date Expiration Date V isits Requested Visits Authorized [id number] Closed Auto-Generate d Referral 01/08/2024 02/06/2025 1 1 Reason Onset Date Comments Population Health Navigation Outreach 03/26/2024 [employer] High Risk - Attempt 2 Reason Onset Date Comments Population Health Navigation Outreach 03/31/2024 [employer] High Risk - Attempt 3 Reason Comments TAVR Meeting Reason Comments Insurance Authorization Reason Comments Referral Information [facility] Francis Reason Comments Appointment TAVR scheduling [...] Care Teams (unrecognized sec tion and content) Compress Machine Operator Relationship Specialty Start Date End Date Claudine Durán MD [address] [place], [place] [id number] PCP - General Internal Medicine 03/02/16 Will Hurley [address] [place], [place] [address] Referring Rheumatology 04/09/18 Gold Colón, buckram sewerReinforcing Metal Worker Internal Medicine 07/22/20 Compress Machine Operator Relationship Specialty Start Date End Date Claudine Durán MD [address] [place], [place] [address] PCP - General Internal Medicine 03/02/16 Will Hurley [address] [place] [address] Referring Rheumatology 04/09/18 Gold Colón, buckram sewerReinforcing Metal Worker Internal Medicine 07/22/20 Compress Machine Operator Relationship Specialty Start Date End Date Claudine Durán MD [address] [place], [place] [address] PCP - General Internal Medicine 03/02/16 Will Hurley [address] [place] [facility] [place] [address] Referring Rheumatology 04/09/18 Gold Colón, buckram sewerReinforcing Metal Worker Internal Medicine 07/22/20 Compress Machine Operator Relationship Specialty Start Date End Date Claudine Durán MD [address] [place], [place] [address]441 PCP - General Internal Medicine 03/02/16 Will granger [address] [place] [address] Referring Rheumatology 04/09/18 Gold Colón, buckram sewerReinforcing Metal Worker Internal Medicine 07/22/20 Compress Machine Operator Relationship Specialty Start Date End Date Claudine Durán MD [address] [place] [address] PCP - General Internal Medicine 03/02/16 Will granger [address] [place] [facility] [address] Referring Rheumatology 04/09/18 Gold Colón, buckram sewerReinforcing Metal Worker Internal Medicine 07/22/20 Compress Machine Operator Relationship Specialty Start Date End Date Claudine Durán MD [address] [place], [place] [address]371 PCP - General Internal Medicine 03/02/16 Will Hurley [address] [place] [facility] [place] [address] Referring Rheumatology 04/09/18 Gold Colón, buckram sewerReinforcing Metal Worker Internal Medicine 07/22/20 Compress Machine Operator Relationship Specialty Start Date End Date Claudine Durán MD [address] [place], [place] [address] PCP - General Internal Medicine 03/02/16 Will Hurley [address] [place] [facility] [place] [address] Referring Rheumatology 04/09/18 Gold Colón, buckram sewerReinforcing Metal Worker Internal Medicine 07/22/20 Compress Machine Operator Relationship Specialty Start Date End Date Claudine Durán MD [address] [place] [address] PCP - General Internal Medicine 03/02/16 Will [address] [place] [address] Referring Rheumatology 04/09/18 Gold Colón, buckram sewerReinforcing Metal Worker Internal Medicine 07/22/20 Compress Machine Operator Relationship Specialty Start Date End Date Claudine Durán MD [address] [place] [address] PCP - General Internal Medicine 03/02/16 Will [address]ley[address] [place] [facility] [place] [address] Referring Rheumatology 04/09/18 Gold Colón, buckram sewerReinforcing Metal Worker Internal Medicine 07/22/20 Compress Machine Operator Relationship Specialty Start Date End Date Claudine Durán MD [address] [place], [place] [address] PCP - General Internal Medicine 03/02/16 Will Hurley[address] [place] [place] [place] [address] Referring Rheumatology 04/09/18 Gold Colón, buckram sewerReinforcing Metal Worker Internal Medicine 07/22/20 Compress Machine Operator Relationship Specialty Start Date End Date Claudine Durán MD [address] [facility] [place] [address] PCP - General Internal Medicine 03/02/16 Will Hurley [address] [place] [place] [address] Referring Rheumatology 04/09/18 Gold Colón, buckram sewerReinforcing Metal Worker Internal Medicine 07/22/20 Compress Machine Operator Relationship Specialty Start Date End Date Claudine Durán MD [address] [place] [address] PCP - General Internal Medicine 03/02/16 Will Hurley[address] [place] [address] Referring Rheumatology 04/09/18 Gold Colón, buckram sewerReinforcing Metal Worker Internal Medicine 07/22/20 Compress Machine Operator Relationship Specialty Start Date End Date Claudine Durán MD [address] [facility] [place] [address] PCP - General Internal Medicine 03/02/16 Will Hurley[address] [place] [place] [address] Referring Rheumatology 04/09/18 Gold Colón, buckram sewerReinforcing Metal Worker Internal Medicine 07/22/20 Compress Machine Operator Relationship Specialty Start Date End Date Claudine Durán MD [address] [facility] [place] [address] PCP - General Internal Medicine 03/02/16 Will [place] [address] Referring Rheumatology 04/09/18 Gold Colón, buckram sewerReinforcing Metal Worker Internal Medicine 07/22/20 Compress Machine Operator Relationship Specialty Start Date End Date Claudine Durán MD [address] [facility] [place] [address] PCP - General Internal Medicine 03/02/16 Will Hurley [address] [place] [place] [address] Referring Rheumatology 04/09/18 Gold Colón, buckram sewerReinforcing Metal Worker Internal Medicine 07/22/20 Compress Machine Operator Relationship Specialty Start Date End Date Claudine Durán MD [address] [facility] [place] [address] PCP - General Internal Medicine 03/02/16 Will Hurley [address] [place] [place] [address] Referring Rheumatology 04/09/18 Gold Colón RN Reinforcing Metal Worker Internal Medicine 07/22/20 Compress Machine Operator Relationship Specialty Start Date End Date Claudine Durán MD [address] [facility] [place] [address] PCP - General Internal Medicine 03/02/16 Will Hurley [address] [place] [place] [place] [address] Referring Rheumatology 04/09/18 Gold Colón, buckram sewerReinforcing Metal Worker Internal Medicine 07/22/20 Compress Machine Operator Relationship Specialty Start Date End Date Claudine Durán MD [address] [place] [address] PCP - General Internal Medicine 03/02/16 Will Hurley[address] [place] [address] Referring Rheumatology 04/09/18 Gold Colón, buckram sewerReinforcing Metal Worker Internal Medicine 07/22/20 Compress Machine Operator Relationship Specialty Start Date End Date Claudine Durán MD [address] [facility] [place] [address] PCP - General Internal Medicine 03/02/16 Will Hurley [address] [place] [facility] [place] [address] Referring Rheumatology 04/09/18 Lulú Ramos, RN [address] [place] [address] Reinforcing Metal Worker Family Medicine 07/22/20 Compress Machine Operator Relationship Specialty Start Date End Date Claudine Durán MD [address] [facility] [place] [address] PCP - General Internal Medicine 03/02/16 Will Hurley [facility] [place] [place] [address] Referring Rheumatology 04/09/18 Gold Colón buckram sewerReinforcing Metal Worker Internal Medicine 07/22/20 12/20/21 Lulú Ramos, PAULA [address] [place] [address] Reinforcing Metal Worker Family Medicine 07/22/20 Compress Machine Operator Relationship Specialty Start Date End Date Claudine Durán MD [address] [facility] [place] [address] PCP - General Internal Medicine 03/02/16 Will Hurley [address] [place] [place] [address] Referring Rheumatology 04/09/18 Lulú Ramos, PAULA [address] [facility], [place] [id number] Reinforcing Metal Worker Family Medicine 07/22/20 Compress Machine Operator Relationship Specialty Start Date End Date Claudine Durán MD [address] [facility] [place] [address] PCP - General Internal Medicine 03/02/16 Will Hurley [facility] [place] [facility] [place] [address] Referring Rheumatology 04/09/18 Lulú Ramos, PAULA [address] [place] [address] Reinforcing Metal Worker Family Medicine 07/22/20 Compress Machine Operator Relationship Specialty Start Date End Date Claudine Durán MD [address] [facility] [place] [address] PCP - General Internal Medicine 03/02/16 Will Hurley [facility] [place] [place] [address] Referring Rheumatology 04/09/18 Lulú Ramos, PALUA [address] [place] [address] Reinforcing Metal Worker Family Medicine 07/22/20 Compress Machine Operator Relationship Specialty Start Date End Date Claudine Durán MD [address] [facility] [place] [address] PCP - General Internal Medicine 03/02/16 Will Hurley [facility] [place] [address] Referring Rheumatology 04/09/18 Lulú Ramos, PAULA [address] [facility], [place] [address] Reinforcing Metal Worker Family Medicine 07/22/20 Compress Machine Operator Relationship Specialty Start Date End Date Claudine Durán MD [address] [facility] [place] [address] PCP - General Internal Medicine 03/02/16 Will granger [address] [facility] [place] [address] Referring Rheumatology 04/09/18 Lulú Ramos, RN [address] [place] [address] Reinforcing Metal Worker Family Medicine 12/20/21 Compress Machine Operator Relationship Specialty Start Date End Date Claudine Durán MD [address] [facility] [place] [address] PCP - General Internal Medicine 03/02/16 Will Hurley [facility] [address] Referring Rheumatology 04/09/18 Lulú Ramos, PAULA [address] [place] [address] Reinforcing Metal Worker Family Medicine 12/20/21 Compress Machine Operator Relationship Specialty Start Date End Date Claudine Durán MD [address] [facility] [place] [address] PCP - General Internal Medicine 03/02/16 Will Hurley [facility] [address] Referring Rheumatology 04/09/18 Lulú Ramos, PAULA [address] [place] [address] Reinforcing Metal Worker Family Medicine 12/20/21 Compress Machine Operator Relationship Specialty Start Date End Date Claudine Durán MD [address] [facility] [place] [address] PCP - General Internal Medicine 03/02/16 Will Hurley [facility] [address] [facility] [place] [address] Referring Rheumatology 04/09/18 Lulú Ramos, PAULA [address] [place] [address] Reinforcing Metal Worker Family Medicine 12/20/21 Compress Machine Operator Relationship Specialty Start Date End Date Claudine Durán MD [address] [facility] [place] [address] PCP - General Internal Medicine 03/02/16 Will Hurley[address] [facility] [place] [address] Referring Rheumatology 04/09/18 Lulú Ramos, PAULA [address] [place] [address] Reinforcing Metal Worker Family Medicine 12/20/21 Compress Machine Operator Relationship Specialty Start Date End Date Claudine Durán MD [address] [facility] [place] [address] PCP - General Internal Medicine 03/02/16 Will Hurley[address] [facility] [place] [address] Referring Rheumatology 04/09/18 Lulú Ramos RN [address] [place] [address] Reinforcing Metal Worker Family Medicine 12/20/21 Compress Machine Operator Relationship Specialty Start Date End Date Claudine Durán MD [address] [facility] [place] [address] PCP - General Internal Medicine 03/02/16 Will Hurley[address] [facility] [place] [address] Referring Rheumatology 04/09/18 Lulú Ramos, PAULA [address] [place] [address] Reinforcing Metal Worker Family Medicine 12/20/21 Compress Machine Operator Relationship Specialty Start Date End Date Claudine Durán MD [address] [facility] [place], [place] [address] PCP - General Internal Medicine 03/02/16 Will Hurley [facility] [place] [address] Referring Rheumatology 04/09/18 Lulú Ramos, RN [address] [place] [address] Reinforcing Metal Worker Family Medicine 12/20/21 Compress Machine Operator Relationship Specialty Start Date End Date Claudine Durán MD [address] [facility] [place] [address] PCP - General Internal Medicine 03/02/16 Will Hurley [facility] [place] [address] Referring Rheumatology 04/09/18 Lulú Ramos, RN [address] [place] [address] Reinforcing Metal Worker Family Medicine 12/20/21 Compress Machine Operator Relationship Specialty Start Date End Date Claudine Durán MD [address] [facility] [place] [place] [address] PCP - General Internal Medicine 03/02/16 Will Hurley [facility] [place] [address] Referring Rheumatology 04/09/18 Lulú Ramos, PAULA [address] [place] [address] Reinforcing Metal Worker Family Medicine 12/20/21 Compress Machine Operator Relationship Specialty Start Date End Date Claudine Durán MD [address] [facility] [place] [address] PCP - General Internal Medicine 03/02/16 Will Hurley [address] [facility] [place] [address] Referring Rheumatology 04/09/18 Ilda Miller, PAULA [address] [place] [address] Reinforcing Metal Worker 07/27/22 Compress Machine Operator Relationship Specialty Start Date End Date Claudine Durán MD [address] [facility] [place] [address] PCP - General Internal Medicine 03/02/16 Will Hurley [address] [facility] [address] Referring Rheumatology 04/09/18 Ilda Miller RN [address] [place] [address] Reinforcing Metal Worker 07/27/22 Compress Machine Operator Relationship Specialty Start Date End Date Claudine Durán MD [address] [place], [place] [address]21 PCP - General Internal Medicine 03/02/16 Will Hurley [address] [facility] [place] [address] Referring Rheumatology 04/09/18 Ilda Miller RN [address] [place] [address] Reinforcing Metal Worker 07/27/22 Compress Machine Operator Relationship Specialty Start Date End Date Claudine Durán MD [address] [facility] [place] [address] PCP - General Internal Medicine 03/02/16 Will Hurley [address] [facility] [place] [address] Referring Rheumatology 04/09/18 Ilda Miller, RN [address] [place] [address] Reinforcing Metal Worker 07/27/22 Compress Machine Operator Relationship Specialty Start Date End Date Claudine Durán MD [address] [place] [address] PCP - General Internal Medicine 03/02/16 Will Hurley [address] [facility] [place] [address] Referring Rheumatology 04/09/18 Ilda Miller RN [address] [place] [address] Reinforcing Metal Worker 07/27/22 Compress Machine Operator Relationship Specialty Start Date End Date Claudine Durán MD [address] [place] [address] PCP - General Internal Medicine 03/02/16 Will Hurley [address] [facility] [place] [address] Referring Rheumatology 04/09/18 Ilda Miller, PAULA [address] [place] [address] Reinforcing Metal Worker 07/27/22 Compress Machine Operator Relationship Specialty Start Date End Date Claudine Durán MD [address] [place], [place] 417371 PCP - General Internal Medicine 03/02/16 Will Hurley [address] [facility] [place] [address] Referring Rheumatology 04/09/18 Ilda Miller RN [address] [place] [address] Reinforcing Metal Worker 07/27/22 Compress Machine Operator Relationship Specialty Start Date End Date Claudine Durán MD [address] [facility] [place] [address] PCP - General Internal Medicine 03/02/16 Will Hurley [address] [facility] [place] [address] Referring Rheumatology 04/09/18 Ilda Miller RN [address] [place] [address] Reinforcing Metal Worker 07/27/22 Compress Machine Operator Relationship Specialty Start Date End Date Claudine Durán MD [address] [facility] [place] [address] PCP - General Internal Medicine 03/02/16 Will Hurley [address] [facility] [place] [address] Referring Rheumatology 04/09/18 Ilda Miller RN [address] [place] [address] Reinforcing Metal Worker 07/27/22 Compress Machine Operator Relationship Specialty Start Date End Date Claudine Durán MD [address] [facility] [place] [address] PCP - General Internal Medicine 03/02/16 Will Hurley [address] [facility] [place] [address] Referring Rheumatology 04/09/18 Ilda Miller RN [address] [place] [address] Reinforcing Metal Worker 07/27/22 Compress Machine Operator Relationship Specialty Start Date End Date Claudine Durán MD [address] [place] [address] PCP - General Internal Medicine 03/02/16 Will Hurley [address] [facility] [place] [address] Referring Rheumatology 04/09/18 Ilda Miller RN [address] [place] [address] Reinforcing Metal Worker 07/27/22 Compress Machine Operator Relationship Specialty Start Date End Date Claudine Durán MD [address] [place] [address] PCP - General Internal Medicine 03/02/16 Will Hurley [address] [facility] [place] [address] Referring Rheumatology 04/09/18 Ilda Miller RN [address] [place] [address] Reinforcing Metal Worker 07/27/22 Compress Machine Operator Relationship Specialty Start Date End Date Claudine Durán MD [address] [place] [address] PCP - General Internal Medicine 03/02/16 Will Hurley [address] [facility] [place] [address] Referring Rheumatology 04/09/18 Lulú Ramos, PAULA [address] [place] [address] Reinforcing Metal Worker Family Medicine 12/20/2107/26 Compress Machine Operator Relationship Specialty Start Date End Date Claudine Durán MD [address] [place] [address] PCP - General Internal Medicine 03/02/16 Will Hurley [address] [place] [address] Referring Rheumatology 04/09/18 Ilda Miller, PAULA [address] [place] [address] Reinforcing Metal Worker 07/27/22 Team Status: Active Member Role Status Dates Dr. Claudine Durán MD Family Provider Active Dr. Claudine Durán MD Primary Care Provider Active Team Status: Inactive Member Role Status Dates Dr. Claudine Durán MD Primary Care Provider Active Dr. Bob Elias DO Emergency Provider Active Compress Machine Operator Relationship Specialty Start Date End Date Claudine Durán MD [address] [place] [address] PCP - General Internal Medicine 03/02/16 Will Hurley [address] [place] [address] Referring Rheumatology 04/09/18 Ilda Miller, PAULA [address] [place], [place] [id number] Reinforcing Metal Worker 07/27/22 Team Status: Inactive Member Role Status Dates Dr. Claudine Durán MD Primary Care Provider Active Dr. Bob Elias DO Attending Provider, Emergency Briana wrad Active Team Status: Active Member Role Status Dates Dr. Claudine Durán MD Primary Care Provider Active Dr. Martín Cornejo DO Emergency Provider Active Dr. Laine Veras MD Admit Provider, Attending Provid er Active Compress Machine Operator Relationship Specialty Start Date End Date Claudine Durán MD [address] [place] [address] PCP - General Internal Medicine 03/02/16 Will Hurley [address] [facility] [place] [address] Referring Rheumatology 04/09/18 Ilda Miller RN [address] [place], [place] [id number] Reinforcing Metal Worker 07/27/22 Lynne Maynard, buckram sewer Parole Hearing Officer 03/26/23 Team Status: Active Member Role Status Dates Dr. Claudine Durán MD Primary Care Provider Active Dr. aMrtín Cornejo DO Emergency Provider Active Dr. Laine Veras MD Admit Provider, Other Provider A ctive Dr. lAisa Mathew MD Attending Provider, Other Prov ider [...] Dr. Alisa Mathew MD Attending Provider Active Compress Machine Operator Relationship Specialty Start Date End Date Claudine Durán MD [address] [place] [address] PCP - General Internal Medicine 03/02/16 Will Hurley [address] [facility] [place], [place] [address] Referring Rheumatology 04/09/18 Ilda Miller RN [address] [place], [place] [id number] Reinforcing Metal Worker 07/27/22 Lynne Maynard, buckram sewer Parole Hearing Officer 03/26/23 Compress Machine Operator Relationship Specialty Start Date End Date Claudine Durán MD [address] [place] [address] PCP - General Internal Medicine 03/02/16 Will Hurley [address] [place] [address] Referring Rheumatology 04/09/18 Ilda Miller RN [address] [place] [address] Reinforcing Metal Worker 07/27/22 Lynne Maynard RN Primary Care Parole Hearing Officer 03/26/23 Team Status: Active Member Role Status [...] Provider, Other Provider A ctive Dr. Jasmyn Cahn , DO Attending Provider, Other Pro vider [...] Rachael Weiss MD Other Provider Active Dr. tSevan Rodríguez MD Other Provider Active Dr. Jing [...] , DO Other Provider Active Rosalina Herrera COLOR MATCHER, COLOR MATCHER-C Other Provider Active Team Status: Active Member [...] , DO Other Provider Active Rosalina Herrera COLOR MATCHER, COLOR MATCHER-C Other Provider Active Team Status: Inactive Member [...] Agarwal , Other Provider Active Rosalina Herrera COLOR MATCHER, COLOR MATCHER-C Other Provider Active Team Status: Active Member [...] Agarwal DO Other Provider Active Rosalina Herrera COLOR MATCHER, COLOR MATCHER-C Other Provider Active Team Status: Active Member [...] MD Admit Provider, Attending Provid er Active Compress Machine Operator Relationship Specialty Start Date End Date Claudine Durán MD [address] [place], [place] 474221 PCP - General Internal Medicine 03/02/16 Will Hurley [address] [place] [address] Referring Rheumatology 04/09/18 Ilda Miller, PAULA [address] [place] [address] Reinforcing Metal Worker 07/27/22 Team Status: Active Member Role Status Dates Dr. Claudine Durán MD Primary Care Provider Active Zaynab NOLEN MD Attending Provider Active Team Status: Inactive Member Role Status Dates Dr. Claudine Durán MD Primary Care Provider Active Zaynab NOLEN MD Attending Provider Active Compress Machine Operator Relationship Specialty Start Date End Date Claudine Durán MD [address] [place], [place] [address]1511 PCP - General Internal Medicine 03/02/16 Will Hurley [address] [facility] [place] [address] Referring Rheumatology 04/09/18 Ilda Miller RN [address] [place], [place] [id number] Reinforcing Metal Worker 07/27/22 Team Status: Inactive Member Role Status Dates Dr. Claudine Durán MD Primary Care Provider Active Fadia Pizarro COLOR MATCHER, COLOR MATCHER-C Attending Provider Active Team Status: Inactive Member Role Status Dates Dr. Claudine Durán MD Primary Care Provider Active Dr. Zaynab Pina MD Attending Provider Active Compress Machine Operator Relationship Specialty Start Date End Date Claudine Durán MD [address] [place] [address] PCP - General Internal Medicine 03/02/16 Will Hurley [address] [facility] [place] [address] Referring Rheumatology 04/09/18 Ilda Miller RN [address] [place] [address] Reinforcing Metal Worker 07/27/22 Compress Machine Operator Relationship Specialty Start Date End Date Claudine Durán MD [address] [place] [address] PCP - General Internal Medicine 03/02/16 Will Hurley [address] [facility] [place] [address] Referring Rheumatology 04/09/18 Ilda Miller RN [address] [place] [address] Reinforcing Metal Worker 07/27/22 Compress Machine Operator Relationship Specialty Start Date End Date Claudine Durán MD [address] [facility] [place] [address] PCP - General Internal Medicine 03/02/16 Will Hurley [address] [facility] [place] [address] Referring Rheumatology 04/09/18 Ilda Miller, PAULA [address] [place] [address] Reinforcing Metal Worker 07/27/22 Compress Machine Operator Relationship Specialty Start Date End Date Claudine Durán MD [address] [place] [address] PCP - General Internal Medicine 03/02/16 Will Hurley [address] [facility] [place] [address] Referring Rheumatology 04/09/18 Ilda Miller, PAULA [address] [place] [address] Reinforcing Metal Worker 07/27/22 Compress Machine Operator Relationship Specialty Start Date End Date Claudine Durán MD [address] [place] [address] PCP - General Internal Medicine 03/02/16 Will Hurley [address] [facility] [place] [address] Referring Rheumatology 04/09/18 Ilda Miller RN [address] [place] [address] Reinforcing Metal Worker 07/27/22 Compress Machine Operator Relationship Specialty Start Date End Date Claudine Durán MD [address] [facility] [place] [address] PCP - General Internal Medicine 03/02/16 Will Hurley [address] [facility] [place] [address] Referring Rheumatology 04/09/18 Ilda Miller, PAULA [address] [place] [address] Reinforcing Metal Worker 07/27/22 Compress Machine Operator Relationship Specialty Start Date End Date Claudine Durán MD [address] [facility] [place] [address] PCP - General Internal Medicine 03/02/16 Will Hurley [address] [facility] [place] [address] Referring Rheumatology 04/09/18 Ilda Miller RN [address] [place] [address] Reinforcing Metal Worker 07/27/22 Compress Machine Operator Relationship Specialty Start Date End Date Claudine Durán MD [address] [facility] [place] [address] PCP - General Internal Medicine 03/02/16 Will Hurley [address] [facility] [place] [address] Referring Rheumatology 04/09/18 Ilda Miller RN [address] [place] [address] Reinforcing Metal Worker 07/27/22 Compress Machine Operator Relationship Specialty Start Date End Date Claudine Durán MD [address] [facility] [place] [address] PCP - General Internal Medicine 03/02/16 Will Hurley [address] [facility] [place] [address] Referring Rheumatology 04/09/18 Ilda Miller, PAULA [address] [place] [address] Reinforcing Metal Worker 07/27/22 Compress Machine Operator Relationship Specialty Start Date End Date Claduine Durán MD [address] [place] [address] PCP - General Internal Medicine 03/02/16 Will Hurley [address] [facility] [place] [address]23 Referring Rheumatology 04/09/18 Ilda Miller RN [address] [place] [address] Reinforcing Metal Worker 07/27/22 Compress Machine Operator Relationship Specialty Start Date End Date Claudine Durán MD [address] [place] [address] PCP - General Internal Medicine 03/02/16 Will Hurley [address] [facility] [place] [address] Referring Rheumatology 04/09/18 Ilda Miller, PAULA [address] [place] [address] Reinforcing Metal Worker 07/27/22 Compress Machine Operator Relationship Specialty Start Date End Date Claudine Durán MD [address] [place], [place] [address]121 PCP - General Internal Medicine 03/02/16 Will Hurley [address] [facility] [place] [address] Referring Rheumatology 04/09/18 Ilda Miller, RN [address] [place] [address] Reinforcing Metal Worker 07/27/22 Compress Machine Operator Relationship Specialty Start Date End Date Claudine Durán MD [address] [facility] [place] [address] PCP - General Internal Medicine 03/02/16 Will Hurley [address] [facility] [place] [address] Referring Rheumatology 04/09/18 Ilda Miller RN [address] [place] [address] Reinforcing Metal Worker 07/27/22 Compress Machine Operator Relationship Specialty Start Date End Date Claudine Durán MD [address] [facility] [place] [address] PCP - General Internal Medicine 03/02/16 Will Hurley [address] [facility] [place] [address] Referring Rheumatology 04/09/18 Ilda Miller, PAULA [address] [place] [address] Reinforcing Metal Worker 07/27/22 Compress Machine Operator Relationship Specialty Start Date End Date Claudine Durán MD [address] [place] [address] PCP - General Internal Medicine 03/02/16 Will Hurley [address] [facility] [address] Referring Rheumatology 04/09/18 Ilda Miller, RN [address] [place] [address] Reinforcing Metal Worker 07/27/22 Compress Machine Operator Relationship Specialty Start Date End Date Claudine Durán MD [address] [place] [address] PCP - General Internal Medicine 03/02/16 Will Hurley [address] [facility] [address] Referring Rheumatology 04/09/18 Ilda Miller RN [address] [facility] [address] Reinforcing Metal Worker 07/27/22 Compress Machine Operator Relationship Specialty Start Date End Date Claudine Durán MD [address] [place] [address] PCP - General Internal Medicine 03/02/16 Will Hurley [address] [facility] [address] Referring Rheumatology 04/09/18 Ilda Miller RN [address] [place] [address] Reinforcing Metal Worker 07/27/22 Compress Machine Operator Relationship Specialty Start Date End Date Claudine Durán MD [address] [place] [address] PCP - General Internal Medicine 03/02/16 Will Hurley [address] [facility] [place] [address] Referring Rheumatology 04/09/18 Ilda Miller, RN [address] [place] [address] Reinforcing Metal Worker 07/27/22 Compress Machine Operator Relationship Specialty Start Date End Date Claudine Durán MD [address] [facility] [place] [address] PCP - General Internal Medicine 03/02/16 Will Hurley [address] [facility] [place] [address] Referring Rheumatology 04/09/18 Ilda Miller RN [address] [place] [address] Reinforcing Metal Worker 07/27/22 Compress Machine Operator Relationship Specialty Start Date End Date Claudine Durán MD [address] [place], [place] 800151 PCP - General Internal Medicine 03/02/16 Will Hurley [address] [facility] [place], [place] [address] Referring Rheumatology 04/09/18 Ilda Miller RN [address] [place] [address] Reinforcing Metal Worker 07/27/22 Compress Machine Operator Relationship Specialty Start Date End Date Claudine Durán MD [address] [facility] [place] [address] PCP - General Internal Medicine 03/02/16 Will Hurley [address] [facility] [place] [address] Referring Rheumatology 04/09/18 Ilda Miller, RN [address] [place] [address] Reinforcing Metal Worker 07/27/22 Compress Machine Operator Relationship Specialty Start Date End Date Claudine Durán MD [address] [facility] [place] [address] PCP - General Internal Medicine 03/02/16 Will Hurley [address] [facility] [place] [address] Referring Rheumatology 04/09/18 Ilda Miller RN [address] [place] [address] Reinforcing Metal Worker 07/27/22 Compress Machine Operator Relationship Specialty Start Date End Date Claudine Durán MD [address] [place] [address] PCP - General Internal Medicine 03/02/16 Will Hurley [address] [facility] [place] [address] Referring Rheumatology 04/09/18 Ilda Miller, PAULA [address] [place] [address] Reinforcing Metal Worker 07/27/22 Compress Machine Operator Relationship Specialty Start Date End Date Claudine Durán MD [address] [facility] [place], [place] [address]11 PCP - General Internal Medicine 03/02/16 Will Hurley [address] [facility] [place] [address] Referring Rheumatology 04/09/18 Ilda Miller RN [address] [place], [place] 738[address] Reinforcing Metal Worker 07/27/22 Compress Machine Operator Relationship Specialty Start Date End Date Claudine Durán MD [address] [facility] [place], [place] [address]31 PCP - General Internal Medicine 03/02/16 Will Hurley [address] [facility] [place], [place] [address] Referring Rheumatology 04/09/18 Ilda Miller RN [address] [place] [address] Reinforcing Metal Worker 07/27/22 Compress Machine Operator Relationship Specialty Start Date End Date Claudine Durán MD [address] [facility] [place] [address] PCP - General Internal Medicine 03/02/16 Will Hurley [address] [place] [address] Referring Rheumatology 04/09/18 Lulú Ramos RN [address] [place] [address] Reinforcing Metal Worker Family Medicine 12/20/21 Compress Machine Operator Relationship Specialty Start Date End Date Claudine Durán MD [address] [facility] [place], [place] [address] PCP - General Internal Medicine 03/02/16 Will Hurley [address] [place] [address] Referring Rheumatology 04/09/18 Ilda Miller, RN [address] [place] [address] Reinforcing Metal Worker 07/27/22 Compress Machine Operator Relationship Specialty Start Date End Date Claudine Durán MD [address] [facility] [place] [address] PCP - General Internal Medicine 03/02/16 Will Hurley [address] [facility] [place] [address] Referring Rheumatology 04/09/18 Ilda Miller RN [address] [place] [address] Reinforcing Metal Worker 07/27/22 Compress Machine Operator Relationship Specialty Start Date End Date Claudine Durán MD [address] [facility] [place] [address] PCP - General Internal Medicine 03/02/16 Will Hurley [address] [facility] [place] [address] Referring Rheumatology 04/09/18 Ilda Miller RN [address] [place] [address] Reinforcing Metal Worker 07/27/22 Compress Machine Operator Relationship Specialty Start Date End Date Claudine Durán MD [address] [facility] [place] [address] PCP - General Internal Medicine 03/02/16 Will Hurley [address] [facility] [place] [address] Referring Rheumatology 04/09/18 Ilda Miller RN [address] [place] [address] Reinforcing Metal Worker 07/27/22 Compress Machine Operator Relationship Specialty Start Date End Date Claudine Durán MD [address] [place] [address] PCP - General Internal Medicine 03/02/16 Will Hurley [address] [facility] [place] [address] Referring Rheumatology 04/09/18 Ilda Miller RN [address] [place] [address] Reinforcing Metal Worker 07/27/22 Compress Machine Operator Relationship Specialty Start Date End Date Claudine Durán MD [address] [place] [address] PCP - General Internal Medicine 03/02/16 Will Hurley [address] [facility] [place] [address] Referring Rheumatology 04/09/18 Ilda Miller RN [address] [place], [place] [id number] Reinforcing Metal Worker 07/27/22 Jimbo Swanson, DIAMOND DRILLER HELPER.ROCKBOARD LATHER [address] [place] [address] Blindmaker Internal Medicine 01/28/24 Twyla Cuevas APRN.REGIONAL CONTROLLER [address] [place] [address] Blindmaker Internal Medicine 01/28/24 Compress Machine Operator Relationship Specialty Start Date End Date Claudine Durán MD [address] [place] [address] PCP - General Internal Medicine 03/02/16 Will Hurley [address] [place] [address] Referring Rheumatology 04/09/18 Ilda Miller, PAULA [address] [place] [address] Reinforcing Metal Worker 07/27/22 Jimbo Swanson APRN.ROCKBOARD LATHER [address] [place] [address] Blindmaker Internal Medicine 01/28/24 Twyla Cuevas APRN.REGIONAL CONTROLLER [address] [place] [address] Blindmaker Internal Medicine 01/28/24 Compress Machine Operator Relationship Specialty Start Date End Date Claudine Durán MD [address] [place], [place] [address] PCP - General Internal Medicine 03/02/16 Will Hurley [address] [facility] [place] [address] Referring Rheumatology 04/09/18 Jimbo Swanson APRN.ROCKBOARD LATHER [address] [place] [address] Blindmaker Internal Medicine 01/28/24 Twyla Cuevas APRN.REGIONAL CONTROLLER [address] [place] [address] Blindmaker Internal Medicine 01/28/24 Compress Machine Operator Relationship Specialty Start Date End Date Claudine Durán MD [address] [facility] [place] [address] PCP - General Internal Medicine 03/02/16 Will Hurley [address] [place] [address] Referring Rheumatology 04/09/18 Jimbo Swanson DIAMOND DRILLER HELPER.ROCKBOARD LATHER [address] [facility] [place] [address] Blindmaker Internal Medicine 01/28/24 Twyla Cuevas APRN.REGIONAL CONTROLLER [address] [facility] [place] [address] Blindmaker Internal Medicine 01/28/24 Compress Machine Operator Relationship Specialty Start Date End Date Claudine Durán MD [address] [facility] [place] [address] PCP - General Internal Medicine 03/02/16 Will Hurley [address] [place] [address] Referring Rheumatology 04/09/18 Jimbo Swanson, DIAMOND DRILLER HELPER.ROCKBOARD LATHER [address] [facility] [place] [address] Blindmaker Internal Medicine 01/28/24 Twyla Cuevas APRN.REGIONAL CONTROLLER [address] [facility] [place] [address] Blindmaker Internal Medicine 01/28/24 Compress Machine Operator Relationship Specialty Start Date End Date Claudine Durán MD [address] [place] [address] PCP - General Internal Medicine 03/02/16 Will Hurley [address] [place] [address] Referring Rheumatology 04/09/18 Jimbo Swanson APRN.ROCKBOARD LATHER [address] [place] [address] Blindmaker Internal Medicine 01/28/24 Twyla Cuevas APRN.REGIONAL CONTROLLER [address] [place] [address] Blindmaker Internal Medicine 01/28/24 Compress Machine Operator Relationship Specialty Start Date End Date Claudine Durná MD [address] [place] [address] PCP - General Internal Medicine 03/02/16 Will Hurley [address] [place] [address] Referring Rheumatology 04/09/18 Jimbo Swanson, DIAMOND DRILLER HELPER.ROCKBOARD LATHER [address] [place] [address] Blindmaker Internal Medicine 01/28/24 Twyla Cuevas DIAMOND DRILLER HELPER.REGIONAL CONTROLLER [address] [place], [place] [address] Blindmaker Internal Medicine 01/28/24 Compress Machine Operator Relationship Specialty Start Date End Date Claudine Durán MD [address] [place], [place] [address]231 PCP - General Internal Medicine 03/02/16 Will Hurley [address] [facility] [address] Referring Rheumatology 04/09/18 Jimbo Swanson, DIAMOND DRILLER HELPER.ROCKBOARD LATHER [address] [place] [address] [facility] Internal Medicine 01/28/24 Twyla Cuevas DIAMOND DRILLER HELPER.REGIONAL CONTROLLER [address] [place] [address] [facility] Internal Medicine 01/28/24 Compress Machine Operator Relationship Specialty Start Date End Date Claudine Durán MD [address] [place] [address] PCP - General Internal Medicine 03/02/16 Will Hurley [address] [facility] [place] [address] Referring Rheumatology 04/09/18 Jimbo Swanson, DIAMOND DRILLER HELPER.ROCKBOARD LATHER [address] [place] [address] [facility] Internal Medicine 01/28/24 Twyla Cuevas DIAMOND DRILLER HELPER.REGIONAL CONTROLLER [address] [place] [address] [facility] Internal Medicine 01/28/24 Compress Machine Operator Relationship Specialty Start Date End Date Claudine Durán MD [address] [place] [address] PCP - General Internal Medicine 03/02/16 Will Hurley [address] [place] [address] Referring Rheumatology 04/09/18 Jimbo Swanson, CONNIE.ROCKBOARD LATHER [address] [place] [address] [facility] Internal Medicine 01/28/24 Twyla Cuevas APRN.REGIONAL CONTROLLER [address] [place] [address] [facility] Internal Medicine 01/28/24 Compress Machine Operator Relationship Specialty Start Date End Date Claudine Durán MD [address] [place] [address] PCP - General Internal Medicine 03/02/16 Will Hurley [address] [place] [address] Referring Rheumatology 04/09/18 Jimbo Swanson, CONNIE.ROCKBOARD LATHER [address] [place] [address] [facility] Internal Medicine 01/28/24 Twyla Cuevas, DIAMOND DRILLER HELPER.REGIONAL CONTROLLER [address] [place] [address] [facility] Internal Medicine 01/28/24 Compress Machine Operator Relationship Specialty Start Date End Date Claudine Durán MD [address] [place] [address] PCP - General Internal Medicine 03/02/16 Will Hurley [address] [place] [address] Referring Rheumatology 04/09/18 Jimbo Swanson, DIAMOND DRILLER HELPER.ROCKBOARD LATHER [address] [place] [address] [facility] Internal Medicine 01/28/24 Twyla Cuevas DIAMOND DRILLER HELPER.REGIONAL CONTROLLER [address] [place] [address] [facility] Internal Medicine 01/28/24 Compress Machine Operator Relationship Specialty Start Date End Date Claudine Durán MD [address] [place] [address] PCP - General Internal Medicine 03/02/16 Will Hurley [address] [place] [address] Referring Rheumatology 04/09/18 Jimbo Swanson, DIAMOND DRILLER HELPER.ROCKBOARD LATHER [address] [place] [address] [facility] Internal Medicine 01/28/24 Twyla Cuevas, DIAMOND DRILLER HELPER.REGIONAL CONTROLLER [address] [place] [address] [facility] Internal Medicine 01/28/24 Compress Machine Operator Relationship Specialty Start Date End Date Claudine Durán MD [address] [place] [address] PCP - General Internal Medicine 03/02/16 Will Hurley [address] [facility] [place] [place] [address] Referring Rheumatology 04/09/18 Jimbo Swanson, DIAMOND DRILLER HELPER.ROCKBOARD LATHER [address] [place] [address] [facility] Internal Medicine 01/28/24 Twyla Cuevas APRN.REGIONAL CONTROLLER [address] [place] [address] [facility] Internal Medicine 01/28/24 Compress Machine Operator Relationship Specialty Start Date End Date Claudine Durán MD [address] [place] [address] PCP - General Internal Medicine 03/02/16 Will Hurley [address] [place], [place] 6784[address] Referring Rheumatology 04/09/18 Jimbo Swanson, DIAMOND DRILLER HELPER.ROCKBOARD LATHER [address] [place] [address] [facility] Internal Medicine 01/28/24 Twyla Cuevas DIAMOND DRILLER HELPER.REGIONAL CONTROLLER [address] [place] [address] [facility] Internal Medicine 01/28/24 Compress Machine Operator Relationship Specialty Start Date End Date Claudine Durán MD [address] [place] [address] PCP - General Internal Medicine 03/02/16 Will Hurley [address] [facility] [address] Referring Rheumatology 04/09/18 Jimbo Swanson, DIAMOND DRILLER HELPER.ROCKBOARD LATHER [address] [place] [address] [facility] Internal Medicine 01/28/24 Twyla Cuevas APRN.REGIONAL CONTROLLER [address] [place] [address] [facility] Internal Medicine 01/28/24 Compress Machine Operator Relationship Specialty Start Date End Date Claudine Durán MD [address] [place] [address] PCP - General Internal Medicine 03/02/16 Will Hurley [address] [facility] [place] [address] Referring Rheumatology 04/09/18 Jimbo Swanson APRN.ROCKBOARD LATHER [address] [place] [address] [facility] Internal Medicine 01/28/24 Twyla Cuevas APRN.REGIONAL CONTROLLER [address] [place] [address] [facility] Internal Medicine 01/28/24 Compress Machine Operator Relationship Specialty Start Date End Date Claudine Durán MD [address] [place] [address] PCP - General Internal Medicine 03/02/16 Will Hurley [address] [facility] [address] Referring Rheumatology 04/09/18 Jimbo Swanson, CONNIE.ROCKBOARD LATHER [address] [place] [address] [facility] Internal Medicine 01/28/24 Twyla Cuevas APRN.REGIONAL CONTROLLER [address] [place], [place] 9977[address] [facility] Internal Medicine 01/28/24 Bartolome Francis MD [address] [place], [place] 0728295 Surgeon Cardiac Surg 04/02/24 Juvencio Saeed MD [address] [place], [place] 7966895 Primary Staff Physician Cardiology 04/02/24 Compress Machine Operator Relationship Specialty Start Date End Date Claudine Durán MD [address] [place] [address] PCP - General Internal Medicine 03/02/16 Will Hurley [address] [place] [address] Referring Rheumatology 04/09/18 Jimbo Swanson APRN.ROCKBOARD LATHER [address] [place] [address] [facility] Internal Medicine 01/28/24 Twyla Cuevas DIAMOND DRILLER HELPER.REGIONAL CONTROLLER [address] [place] [address] [facility] Internal Medicine 01/28/24 Bartolome Francis MD [address] [place], [place] [address] Surgeon Cardiac Surg 04/02/24 Juvencio Saeed MD [address] [place], [place] 5916195 Primary Staff Physician Cardiology 04/02/24 Compress Machine Operator Relationship Specialty Start Date End Date Claudine Durán MD [address] [place] [address] PCP - General Internal Medicine 03/02/16 Will Hurley [address] [place] [address] Referring Rheumatology 04/09/18 Jimbo Swanson APRN.ROCKBOARD LATHER [address] [place] [address] [facility] Internal [facility] 01/28/24 Twyla Cuevas APRN.REGIONAL CONTROLLER [address] [place] [address] [facility] Internal Medicine 01/28/24 Bartolome Francis MD [address] [place], [place] [address] Surgeon Cardiac Surg 04/02/24 Juvencio Saeed MD [address] [place] [address] Primary Staff Physician Cardiology 04/02/24 Compress Machine Operator Relationship Specialty Start Date End Date Claudine Durán MD [address] [place] [address] PCP - General Internal Medicine 03/02/16 Will Hurley [address] [place], [place] 669513 Referring Rheumatology 04/09/18 Jimbo Swanson, DIAMOND DRILLER HELPER.ROCKBOARD LATHER [address] [place] [address] [facility] Internal Medicine 01/28/24 Twyla Cuevas DIAMOND DRILLER HELPER.REGIONAL CONTROLLER [address] [place] [address] [facility] Internal Medicine 01/28/24 Bartolome Francis MD [address] [facility] [place] [address] Surgeon Cardiac Surg 04/02/24 Juvencio Saeed MD [address] [facility] [place], [place] 2495495 Primary Staff Physician Cardiology 04/02/24 Compress Machine Operator Relationship Specialty Start Date End Date Claudine Durán MD [address] [place] [address] PCP - General Internal Medicine 03/02/16 Will Hurley [address] [place] [address] Referring Rheumatology 04/09/18 Jimbo Swanson, DIAMOND DRILLER HELPER.ROCKBOARD LATHER [address] [place] [address] [facility] Internal Medicine 01/28/24 Twyla Cuevas DIAMOND DRILLER HELPER.REGIONAL CONTROLLER [address] [place] [address] [facility] Internal Medicine 01/28/24 Bartolome Francis MD [address] [place], [place] 4729495 Surgeon Cardiac Surg 04/02/24 Juvencio Saeed MD [address] [place] [address] Primary Staff Physician Cardiology 04/02/24 Pili Benitez, buckram sewerReinforcing Metal Worker 04/11/24 Compress Machine Operator Relationship Specialty Start Date End Date Claudine Durán MD [address] [place], [place] 801931 PCP - General Internal Medicine 03/02/16 Will Hurley [address] [place] [address] Referring Rheumatology 04/09/18 Jimbo Swanson APRN.ROCKBOARD LATHER [address] [place] [address] [facility] Internal [facility] 01/28/24 Twyla Cuevas APRN.REGIONAL CONTROLLER [address] [place] [id number] [facility] Internal Medicine 01/28/24 Bartolome Francis MD [address] [place] [address] Surgeon Cardiac Surg 04/02/24 Juvencio Saeed MD [address] [facility] [place] [address] Primary Staff Physician Cardiology 04/02/24 Pili Benitez, buckram sewerReinforcing Metal Worker 04/11/24 Compress Machine Operator Relationship Specialty Start Date End Date Claudine Durán MD [address] [place], [place] 21715691 PCP - General Internal Medicine 03/02/16 Will Hurley [address] [place], [place] 78267[address] Referring Rheumatology 04/09/18 Jimbo Swanson, DIAMOND DRILLER HELPER.ROCKBOARD LATHER [address] [place], [place] 806051 [facility] Internal Medicine 01/28/24 Twyla Cuevas APRN.REGIONAL CONTROLLER [address] [place], [place] 94[address] [facility] Internal Medicine 01/28/24 Bartolome Francis MD [address] [place], [place] 2263995 Surgeon Cardiac Surg 04/02/24 Juvencio Saeed MD [address] [place], [place] 1663995 Primary Staff Physician Cardiology 04/02/24 Pili Benitez, buckram sewerReinforcing Metal Worker 04/11/24 Compress Machine Operator Relationship Specialty Start Date End Date Claudine Durán MD [address] [place], [place] 296151 PCP - General Internal Medicine 03/02/16 Will Hurley [address] [facility] [place] [address] Referring Rheumatology 04/09/18 Jimbo Swanson, CONNIE.ROCKBOARD LATHER [address] [place] [address] [facility] Internal Medicine 01/28/24 Twyla Cuevas APRN.REGIONAL CONTROLLER [address] [place] [address] [facility] Internal Medicine 01/28/24 Bartolome Francis MD [address] [place], [place] 6574295 Surgeon Cardiac Surg 04/02/24 Juvencio Saeed MD [address] [place], [place] 0224595 Primary Staff Physician Cardiology 04/02/24 Pili Benitez, buckram sewerReinforcing Metal Worker 04/11/24 Compress Machine Operator Relationship Specialty Start Date End Date Claudine Durán MD [address] [place] [address] PCP - General Internal Medicine 03/02/16 Will Hurley [address] [place], [place] 855823 Referring Rheumatology 04/09/18 Jimbo Swanson APRN.ROCKBOARD LATHER [address] [place] [address] [facility] Internal Medicine 01/28/24 Twyla Cuevas APRN.REGIONAL CONTROLLER [address] [place] [address] [facility] Internal Medicine 01/28/24 Bartolome Francis MD [address] [place], [place] 8139995 Surgeon Cardiac Surg 04/02/24 Juvencio Saeed MD [address] [place], [place] 1088895 Primary Staff Physician Cardiology 04/02/24 Pili Benitez, buckram sewerReinforcing Metal Worker 04/11/24 Compress Machine Operator Relationship Specialty Start Date End Date Claudine Durán MD [address] [place], [place] 879861 PCP - General Internal Medicine 03/02/16 Will Hurley [address] [place] [address] Referring Rheumatology 04/09/18 Jimbo Swanson APRN.ROCKBOARD LATHER [address] [place], [place] 830231 [facility] Internal Medicine 01/28/24 Twyla Cuevas APRN.REGIONAL CONTROLLER [address] [place] [address] [facility] Internal Medicine 01/28/24 Bartolome Francis MD [address] [place], [place] 6161995 Surgeon Cardiac Surg 04/02/24 Juvencio Saeed MD [address] [place], [place] 4714995 Primary Staff Physician Cardiology 04/02/24 Pili Benitez, buckram sewerReinforcing Metal Worker 04/11/24 Compress Machine Operator Relationship Specialty Start Date End Date Claudine Durán MD [address] [place] [address] PCP - General Internal Medicine 03/02/16 Will Hurley [address] [place] [address] Referring Rheumatology 04/09/18 Jimbo Swanson APRN.ROCKBOARD LATHER [address] [facility] [place] 019641 [facility] Internal Medicine 01/28/24 Twyla Cuevas APRN.REGIONAL CONTROLLER [address] [place] [address] [facility] Internal Medicine 01/28/24 Bartolome Francis MD [address] [place] [address] Surgeon Cardiac Surg 04/02/24 uJvencio Saeed MD [address] [place] [address] Primary Staff Physician Cardiology 04/02/24 Pili Benitez, buckram sewerReinforcing Metal Worker 04/11/24 Compress Machine Operator Relationship Specialty Start Date End Date Claudine Durán MD [address] [place] [address] PCP - General Internal Medicine 03/02/16 Will Hurley [address] [place] [address] Referring Rheumatology 04/09/18 Jimbo Swanson APRN.ROCKBOARD LATHER [address] [place] [address] [facility] Internal Medicine 01/28/24 Twyla Cuevas APRN.REGIONAL CONTROLLER [address] [place] [address] [facility] Internal Medicine 01/28/24 Bartolome Francis MD [address] [place], [place] 6423595 Surgeon Cardiac Surg 04/02/24 Juvencio Saeed MD [address] [place], [place] 9004795 Primary Staff Physician Cardiology 04/02/24 Pili Benitez, buckram sewerReinforcing Metal Worker 04/11/24 Compress Machine Operator Relationship Specialty Start Date End Date Claudine Durán MD [address] [place], [place] 374031 PCP - General Internal Medicine 03/02/16 Will Hurley [address] [place], [place] 384063 Referring Rheumatology 04/09/18 Jimbo Swanson, DIAMOND DRILLER HELPER.ROCKBOARD LATHER [address] [place] [address] [facility] Internal Medicine 01/28/24 Twyla Cuevas, DIAMOND DRILLER HELPER.REGIONAL CONTROLLER [address] [place] [address] [facility] Internal Medicine 01/28/24 Bartolome Francis MD [address] [place] [address] Surgeon Cardiac Surg 04/02/24 Juvencio Saeed MD [address] [place], [place] 0753595 Primary Staff Physician Cardiology 04/02/24 Pili Benitez, buckram sewerReinforcing Metal Worker 04/11/24 Compress Machine Operator Relationship Specialty Start Date End Date Claudine Durán MD [address] [place], [place] 799621 PCP - General Internal Medicine 03/02/16 Will Hurley [address] [facility] [place], [place] [address] Referring Rheumatology 04/09/18 Jimbo Swanson, DIAMOND DRILLER HELPER.ROCKBOARD LATHER [address] [place], [place] 112101 [facility] Internal Medicine 01/28/24 Twyla Cuevas, DIAMOND DRILLER HELPER.REGIONAL CONTROLLER [address] [place], [place] 583291 [facility] Internal Medicine 01/28/24 Bartolome Francis MD [address] [place], [place] 0777595 Surgeon Cardiac Surg 04/02/24 Juvencio Saeed MD [address] [place] [address] Primary Staff Physician Cardiology 04/02/24 Pili Benitez, buckram sewerReinforcing Metal Worker 04/11/24 Pili Benitez, buckram sewer Parole Hearing Officer 05/05/24 Compress Machine Operator Relationship Specialty Start Date End Date Claudine Durán MD [address] [place], [place] 584961 PCP - General Internal Medicine 03/02/16 Will Hurley [address] [facility] [place] [address] Referring Rheumatology 04/09/18 Jimbo Swanson APRN.ROCKBOARD LATHER [address] [place] [address] [facility] Internal [facility] 01/28/24 Twyla Cuevas APRN.REGIONAL CONTROLLER [address] [place] [address] [facility] Internal Medicine 01/28/24 Bartolome Francis MD [address] [place], [place] 6142195 Surgeon Cardiac Surg 04/02/24 Juvencio Saeed MD [address] [facility] [place], [place] 777[address] Primary Staff Physician Cardiology 04/02/24 Pili Benitez, buckram sewerReinforcing Metal Worker 04/11/24 Pili Benitez, buckram sewer Parole Hearing Officer 05/05/24 Compress Machine Operator Relationship Specialty Start Date End Date Claudine Durán MD [address] [facility] [place] [address] PCP - General Internal Medicine 03/02/16 Will Hurley [address] [place] [address] Referring Rheumatology 04/09/18 Jimbo Swanson APRN.ROCKBOARD LATHER [address] [facility] [place] [address] [facility] Internal Medicine 01/28/24 Twyla Cuevas APRN.REGIONAL CONTROLLER [address] [facility] [place] [address] [facility] Internal Medicine 01/28/24 Bartolome Francis MD [address] [place] [address] Surgeon Cardiac Surg 04/02/24 Juvencio Saeed MD [address] [place], [place] 0046395 Primary Staff Physician Cardiology 04/02/24 Pili Benitez, buckram sewerReinforcing Metal Worker 04/11/24 Compress Machine Operator Relationship Specialty Start Date End Date Claudine Durán MD [address] [place], [place] 915341 PCP - General Internal Medicine 03/02/16 Will Hurley [address] [place], [place] 394033 Referring Rheumatology 04/09/18 Jimbo Swanson, DIAMOND DRILLER HELPER.ROCKBOARD LATHER [address] [place], [place] 986121 [facility] Internal [facility] 01/28/24 Twyla Cuevas DIAMOND DRILLER HELPER.REGIONAL CONTROLLER [address] [place] [address] [facility] Internal Medicine 01/28/24 05/09/24 Bartolome Francis MD [address] [place] [address] Surgeon Cardiac Surg 04/02/24 Juvencio Saeed MD [address] [place], [place] 3919695 Primary Staff Physician Cardiology 04/02/24 Pili Benitez, buckram sewerReinforcing Metal Worker 04/11/24 Pili Benitez, buckram sewer Parole Hearing Officer 05/05/24 Compress Machine Operator Relationship Specialty Start Date End Date Claudine Durán MD [address] [facility] [place] 938231 PCP - General Internal Medicine 03/02/16 Will Hurley [address] [facility] [address]003 Referring Rheumatology 04/09/18 Jimbo Swanson, DIAMOND DRILLER HELPER.ROCKBOARD LATHER [address] [place], [place] 915181 [facility] Internal Medicine 01/28/24 Bartolome Francis MD [address] [place], [place] 2385895 Surgeon Cardiac Surg 04/02/24 Juvencio Saeed MD [address] [place] [address] Primary Staff Physician Cardiology 04/02/24 Pili Benitez, buckram sewerReinforcing Metal Worker 04/11/24 Pili Benitez, buckram sewer Parole Hearing Officer 05/05/24 Compress Machine Operator Relationship Specialty Start Date End Date Claudine Durán MD [address] [facility] [place] [address] PCP - General Internal Medicine 03/02/16 Will Hurley [address] [place], [place] 173243 Referring Rheumatology 04/09/18 Jimbo Swanson, DIAMOND DRILLER HELPER.ROCKBOARD LATHER [address] [facility] [place] 745721 [facility] Internal Medicine 01/28/24 Bartolome Francis MD [address] [place] [address] Surgeon Cardiac Surg 04/02/24 Juvencio Saeed MD [address] [place] [address] Primary Staff Physician Cardiology 04/02/24 Pili Benitez, buckram sewerReinforcing Metal Worker 04/11/24 Pili Benitez, buckram sewer Parole Hearing Officer 05/05/24 Twyla Cuevas, DIAMOND DRILLER HELPER.REGIONAL CONTROLLER [address] [place], [place] 784411 [facility] Internal Medicine 05/13/24 Compress Machine Operator Relationship Specialty Start Date End Date Claudine Durán MD [address] [place] [address] PCP - General Internal Medicine 03/02/16 Will Hurley [address] [place], [place] 417573 Referring Rheumatology 04/09/18 Jimbo Swanson APRN.ROCKBOARD LATHER [address] [place] [address] [facility] Internal Medicine 01/28/24 Bartolome Francis MD [address] [place] [address] Surgeon Cardiac Surg 04/02/24 Juvencio Saeed MD [address] [place] [address] Primary Staff Physician Cardiology 04/02/24 Pili Benitez, buckram sewerReinforcing Metal Worker 04/11/24 Pili Benitez, buckram sewer Parole Hearing Officer 05/05/24 Twyla Cuevas, DIAMOND DRILLER HELPER.REGIONAL CONTROLLER [address] [place] [address] [facility] 05/13/24 Compress Machine Operator Relationship Specialty Start Date End Date Claudine Durán MD [address] [place] [address] PCP - General Internal Medicine 03/02/16 Will Hurley [address] [place] [address] Referring Rheumatology 04/09/18 Jimbo Swanson APRN.ROCKBOARD LATHER [address] [place] [address] [facility] 01/28/24 Bartolome Francis MD [address] [place] [address] Surgeon Cardiac Surg 04/02/24 Juvencio Saeed MD [address] [place] [address] Primary Staff Physician Cardiology 04/02/24 Pili Benitez, buckram sewerReinforcing Metal Worker 04/11/24 Pili Benitez, buckram sewer Parole Hearing Officer 05/05/24 Twyla Cuevas, DIAMOND DRILLER HELPER.REGIONAL CONTROLLER [address] [place] [address] [facility] Internal [facility] 05/13/24 Compress Machine Operator Relationship Specialty Start Date End Date Claudine Durán MD [address] [place] [address] PCP - General Internal Medicine 03/02/16 Will Hurley [address] [facility] [place] [address] Referring Rheumatology 04/09/18 Jimbo Swanson, CONNIE.ROCKBOARD LATHER [address] [place] [address] [facility] 01/28/24 Bartolome Francis MD [address] [place], [place] 2294395 Surgeon Cardiac Surg 04/02/24 Juvencio Saeed MD [address] [place], [place] 3622695 Primary Staff Physician Cardiology 04/02/24 Pili Benitez, buckram sewerReinforcing Metal Worker 04/11/24 Pili Benitez, buckram sewer Parole Hearing Officer 05/05/24 Twyla Cuevas, DIAMOND DRILLER HELPER.REGIONAL CONTROLLER [address] [place] [address] [facility] 05/13/24 Team Status: Active Member Role Status Dates Dr. Claudine Durán MD Primary Care Provider Active Team Status: Inactive Member Role Status Dates Dr. Claudine Durán MD Primary Care Provider Active Start: May 28, 2024 End: May 28, 2024 CHRISTOPHE LOWRY Attending Provider Active Start: [facility] 2024 End: May 28, 2024 CHRISTOPHE LOWRY Referring Provider Active Start: [facility] 2024 End: May 28, 2024 Team Status: Active Member Role Status Dates Dr. Claudine Durán MD Primary Care Provider Active Start: 2024 CHRISTOPHE LOWRY Attending Provider Active Start: [facility] 2024 CHRISTOPHE LOWRY Referring Provider Active Start: [facility] 2024 Compress Machine Operator Relationship Specialty Start Date End Date Claudine Durán MD [address] [place], [place] 929991 PCP - General Internal Medicine 03/02/16 Will Hurley [address] [facility] [place], [place] 8399[address] Referring Rheumatology 04/09/18 Jimbo Swanson APRN.ROCKBOARD LATHER [address] [place], [place] 467841 [facility] 01/28/24 Bartolome Francis MD [address] [place], [place] 1276995 Surgeon Cardiac Surg 04/02/24 Juvencio Saeed MD [address] [place], [place] 6857495 Primary Staff Physician Cardiology 04/02/24 Pili Benitez, buckram sewerReinforcing Metal Worker 04/11/24 Twyla Cuevas DIAMOND DRILLER HELPER.REGIONAL CONTROLLER [address] [place], [place] 869521 [facility] 05/13/24 Compress Machine Operator Relationship Specialty Start Date End Date Claudine Durán MD [address] [facility] [place] 114[address] PCP - General Internal Medicine 03/02/16 Will Hurley [address] [facility] [place] [address] Referring Rheumatology 04/09/18 Jimbo Swanson, DIAMOND DRILLER HELPER.ROCKBOARD LATHER [address] [place] [address] [facility] 01/28/24 Bartolome Francis MD [address] [place], [place] 965[address]5 Surgeon Cardiac Surg 04/02/24 Juvencio Saeed MD [address] [place], [place] 2632895 Primary Staff Physician Cardiology 04/02/24 Pili Benitez, buckram sewerReinforcing Metal Worker 04/11/24 Twyla Cuevas DIAMOND DRILLER HELPER.REGIONAL CONTROLLER [address] [place], [place] 200921 [facility] Internal Medicine 05/13/24 Compress Machine Operator Relationship Specialty Start Date End Date Claudine Durán MD [address] [place], [place] 323691 PCP - General Internal Medicine 03/02/16 Will Hurley [address] [place], [place] 112363 Referring Rheumatology 04/09/18 Jimbo Swanson, DIAMOND DRILLER HELPER.ROCKBOARD LATHER [address] [place] [address] [facility] 01/28/24 Bartolome Francis MD [address] [place] [address] Surgeon Cardiac Surg 04/02/24 Juvencio Saeed MD [address] [place] [address] Primary Staff Physician Cardiology 04/02/24 Pili Benitez, buckram sewerReinforcing Metal Worker 04/11/24 Twyla Cuevas APRN.REGIONAL CONTROLLER [address] [place] [address] [facility] 05/13/24 Compress Machine Operator Relationship Specialty Start Date End Date Claudine Durán MD [address] [place] [address] PCP - General Internal Medicine 03/02/16 Will Hurley [address] [place] [address] Referring Rheumatology 04/09/18 Jimbo Swanson APRN.ROCKBOARD LATHER [address] [place] [id number] [facility] 01/28/24 Bartolome Francis MD [address] [place] [address] Surgeon Cardiac Surg 04/02/24 Juvencio Saeed MD [address] [place] [address] Primary Staff Physician Cardiology 04/02/24 Pili Benitez, buckram sewerReinforcing Metal Worker 04/11/24 Twyla Cuevas DIAMOND DRILLER HELPER.REGIONAL CONTROLLER [address] [place] [address] [facility] 05/13/24 Compress Machine Operator Relationship Specialty Start Date End Date Claudine Durán MD [address] [place] [address] PCP - General Internal Medicine 03/02/16 Will Hurley [address] [facility] [place] [address] Referring Rheumatology 04/09/18 Jimbo Swanson APRN.ROCKBOARD LATHER [address] [place] [address] [facility] 01/28/24 Bartolome Francis MD [address] [place], [place] [id number] Surgeon Cardiac Surg 04/02/24 Juvencio Saeed MD [address] [place], [place] [id number] Primary Staff Physician Cardiology 04/02/24 Pili Benitez, buckram sewerReinforcing Metal Worker 04/11/24 Twyla Cuevas APRN.REGIONAL CONTROLLER [address] [place] [address] [facility] 05/13/24 Team Status: Inactive Member Role Status Dates Dr. Claudine Durán MD Primary Care Provider Active Start: June 18, 2024 End: June 18, 2024 CHRISTOPHE LOWRY Attending Provider Active Start: [facility] 2024 End: June 18, 2024 CHRISTOPHE LOWRY Referring Provider Active Start: [facility] 2024 End: June 18, 2024 Team Status: [...] Sandy mcginnis 2024 End: July 19, 2024 Compress Machine Operator Relationship Specialty Start Date End Date Claudine Durán MD [address] [facility] [place] [address] PCP - General Internal Medicine 03/02/16 Will Hurley [address] [place] [address] Referring Rheumatology 04/09/18 Bartolome Francis MD [address] [place], [place] [id number] Surgeon Cardiac Surg 04/02/24 Juvencio Saeed MD [address] [place], [place] [id number] Primary Staff Physician Cardiology 04/02/24 Twyla Cuevas, DIAMOND DRILLER HELPER.REGIONAL CONTROLLER [address] [place] [address] [facility] 05/13/24 Jimbo Swanson, DIAMOND DRILLER HELPER.ROCKBOARD LATHER [address] [facility], [place] [address] [facility] 07/09/24 Compress Machine Operator Relationship Specialty Start Date End Date Claudine Durán MD [address] [facility] [place] [address] PCP - General Internal Medicine 03/02/16 Will Hurley [address] [facility] [place] [place] [address] Referring Rheumatology 04/09/18 Bartolome Francis MD [address] [place] [address] Surgeon Cardiac Surg 04/02/24 Juvencio Saeed MD [address] [place], [place] [id number] Primary Staff Physician Cardiology 04/02/24 Twyla Cuevas APRN.REGIONAL CONTROLLER [address] [place] [address] [facility] 05/13/24 Jimbo Swanson APRN.ROCKBOARD LATHER [address] [place] [address] [facility] 07/09/24 Compress Machine Operator Relationship Specialty Start Date End Date Claudine Durán MD [address] [place] [address] PCP - General Internal Medicine 03/02/16 Will Hurley [address] [facility] [place] [address] Referring Rheumatology 04/09/18 Bartolome Francis MD [address] [place] [address] Surgeon Cardiac Surg 04/02/24 Juvencio Saeed MD [address] [place] [address] Primary Staff Physician Cardiology 04/02/24 Twyla Cuevas APRN.REGIONAL CONTROLLER [address] [place] [address] [facility] 05/13/24 Jimbo Swanson APRN.ROCKBOARD LATHER [address] [place] [address] [facility] 07/09/24 Compress Machine Operator Relationship Specialty Start Date End Date Claudine Durán MD [address] [place] [address] PCP - General Internal Medicine 03/02/16 Will Hurley [address] [place] [address] Referring Rheumatology 04/09/18 Bartolome Francis MD [address] [place], [place] [id number] Surgeon Cardiac Surg 04/02/24 Juvencio Saeed MD [address] [place] [address] Primary Staff Physician Cardiology 04/02/24 Twyla Cuevas APRN.REGIONAL CONTROLLER [address] [place] [address] [facility] 05/13/24 Jimbo Swanson APRN.ROCKBOARD LATHER [address] [place] [address] [facility] 07/09/24 Compress Machine Operator Relationship Specialty Start Date End Date Claudine Durán MD [address] [place] [address] PCP - General Internal Medicine 03/02/16 Will Hurley [address] [facility] [place] [address] Referring Rheumatology 04/09/18 Bartolome Francis MD [address] [place], [place] [id number] Surgeon Cardiac Surg 04/02/24 Juvencio Saeed MD [address] [place], [place] [id number] Primary Staff Physician Cardiology 04/02/24 Twyla Cuevas APRN.REGIONAL CONTROLLER [address] [place] [address] [facility] 05/13/24 Jimbo Swanson APRN.ROCKBOARD LATHER [address] [place], [place] [address] [facility] 07/09/24 Team Status: Active Member Role/Relationship Status Dates Dr. Claudine Durán MD Primary Care Provider Active Team Status: Inactive Member Role/Relationship Status Dates Dr. Claudine Durán MD Primary Care Provider Active Start: May 28, 2024 End: May 28, 2024 CHRISTOPHE LOWRY Attending Provider Active Start: [facility] 2024 End: May 28, 2024 CHRISTOPHE LOWRY Referring Provider Active Start: [facility] 2024 End: May 28, 2024 Team Status: Inactive Member Role/Relationship Status Dates Dr. Claudine Durán MD Primary Care Provider Active Start: June 18, 2024 End: June 18, 2024 CHRISTOPHE LOWRY Attending Provider Active Start: [facility] 2024 End: June 18, 2024 CHRISTOPHE LOWRY [...] Nasrin chapa 2024 End: August 18, 2024 Compress Machine Operator Relationship Specialty Start Date End Date Claudine Durán MD [address] [place] [address] PCP - General Internal Medicine 03/02/16 Will Hurley [address] [place] [address] Referring Rheumatology 04/09/18 Bartolome Francis MD [address] [facility] [place] [address] Surgeon Cardiac Surg 04/02/24 Juvencio Saeed MD [address] [place] [address] Primary Staff Physician Cardiology 04/02/24 Twyla Cuevas DIAMOND DRILLER HELPER.REGIONAL CONTROLLER [address] [place], [place] [address] [facility] Internal Medicine 05/13/24 Jimbo Swanson APRN.ROCKBOARD LATHER [address] [place], [place] [address] [facility] Internal Medicine 07/09/24 Goals (unrecognized section [...] CLINICAL RECORDS. [facility]. provides no warranty or guarantee of the accuracy or completeness of information in this document.
[2024-08-23] MEDS: Lactated Ringers 1,000 ML 100 ML IV (12:45)
--- NOTE | 2024-08-23 13:54 | CONS.ORTHO ---
HPI Consult Data Date of Consult: 08/23/24 HPI Narrative Reason for Consultation: Left wrist pain HPI Narrative: ALENA BUSTAMANTE, is a 79 F who presents today with left wrist pain. Patient notes she is in cardiac rehab and has a couple days left. She had a TAVR and is contained to rehab from this. She is on Coumadin for blood thinner and is currently symptomatic. Patient notes she fell last evening. She notes she was getting out of bed to go to the bathroom and fell she did not hit her head or lose consciousness however she feels things happen quickly and does not remember the exact events of her fall. She lives at home by herself and does her own cooking cleaning laundry and ADLs. She presents with left wrist pain noted at 8 out of 10 worse with motion better with immobilization. She denies any associated numbness and tingling. She was seen in the emergency department and noted that she is unable to go home due to difficulty with ADLs. She has chronic osteoarthritis and rheumatoid arthritis causing lower extremity pain. She uses her hands to get out of the chair or up off of the low toilet seat. She was unable to do this in the emergency room. Based on this she was admitted for placement and likely rehabilitation. [facility] Medical History Hypertension GERD (gastroesophageal reflux disease) Pericardial effusion CHF (congestive heart failure) Wears glasses Walker as ambulation aid Ambulates with cane Arthritis Excessive bleeding Easy bruising History of ulceration History of GI bleed Gastric reflux Emphysema, unspecified Cardiology follow-up encounter History of edema Severe aortic stenosis ABLA (acute blood loss anemia) Thrombocytopenia Adult failure to thrive Leg edema Rheumatoid arthritis COPD (chronic obstructive pulmonary disease) Former smoker DVT (deep venous thrombosis) Pulmonary embolism Colitis COVID-19 Histoplasmosis Home Medications Medication Instructions Recorded Last Taken Type multivitamin (Daily Multi-Vitamin 1 tab PO DAILY supplement 03/19/23 10/01/23 History tablet) vitamins A,C,L-qtnc-nsfeqx 2,148 2 tab PO BID eye health 03/19/23 10/01/23 History mcg-113 mg-45 mg-17.4 mg tablet (PreserVision AREDS) gabapentin 300 mg capsule 300 mg PO Q12 nerve pain #0 caps 04/05/23 10/01/23 Rx potassium chloride 20 mEq 20 meq PO BIDCM #0 tabs 03/08/24 08/12/24 Rx tablet,extended release(part/cryst) fluticasone propionate 50 1 spray intranasal DAILY 08/13/23 10/02/23 History mcg/actuation nasal spray,suspension furosemide 20 mg tablet 20 mg PO DAILY PRN edema 08/13/23 10/01/23 History tiotropium bromide 2.5 2 puff inhalation DAILY 08/13/23 10/02/23 History mcg/actuation mist for inhalation (Spiriva Respimat) diclofenac sodium 1 % topical gel 4 g topical BID PRN PRN knee pain 08/18/23 10/02/23 Rx (Voltaren Arthritis Pain) #100 grams omega 4-fte-wum-fish oil 1,200 mg 1 cap PO DAILY 10/01/23 Unknown History (144 mg-216 mg) capsule (Fish Oil) albuterol sulfate 90 mcg/actuation 2 puff inhalation Q4H PRN PRN 06/13/24 Unknown History aerosol inhaler shortness of breath or wheezing cholecalciferol (vitamin D3) 25 25 mcg PO QDAY 06/13/24 Unknown History mcg (1,000 unit) capsule fluticasone 250 mcg-salmeterol 50 1 inh inhalation BID 06/13/24 Unknown History mcg/dose blistr powdr for inhalation (Wixela Inhub) folic acid 0.8 mg capsule 0.8 mg PO QDAY 06/13/24 Unknown History methotrexate sodium 2.5 mg tablet 10 mg PO QWEEK 06/13/24 Unknown History sulfasalazine 500 mg 1 g PO BID 06/13/24 Unknown History tablet,delayed release acetaminophen 500 mg tablet 1,000 mg PO TID Pain Score 1-10 06/20/24 Unknown History clindamycin HCl 300 mg capsule 600 mg (2 x 300 mg) PO ONCE #2 caps 06/20/24 Unknown Rx ferrous sulfate 325 mg (65 mg 325 mg PO QDAY 06/20/24 Unknown History iron) tablet metoprolol succinate 25 mg 25 mg PO QDAY #30 tabs 07/18/24 Unknown Rx tablet,extended release 24 hr folic acid 1 mg tablet 1 mg PO DAILY 08/23/24 Unknown History warfarin 1 mg tablet 5 mg PO DAILY 08/23/24 Unknown History warfarin 5 mg tablet See Rx Instructions .Route .COMPLEX 08/23/24 Unknown History Held on 10/01/23. Instructions: ON HOLD FOR COLONOSCOPY Allergy/AdvReac Type Severity Reaction Status Date / Time Penicillins Allergy Severe Anaphylaxis Verified 06/20/24 10:10 no significant family history Surgical History History of transcatheter aortic valve replacement (TAVR) History of back surgery History of esophagogastroduodenoscopy (EGD) History of tonsillectomy History of embolic filter insertion Hx of foot surgery Social History household members: none Smoking Status: Former smoker alcohol intake: never substance use type: does not use ROS ROS Narrative Outside of what is mentioned in HPI 14 point review of systems is negative Vital Signs Vital Signs Vital Signs: 08/23/24 07:18 08/23/24 07:31 08/23/24 09:18 Temperature 98.6 F Temperature Source Oral Pulse Rate 84 64 Pulse Strength Respiratory Rate 18 18 Respiratory Effort Normal Respiratory Depth Normal Respiratory Pattern Normal Blood Pressure 113/63 134/76 H Blood Pressure Mean 79 95 Blood Pressure Source Blood Pressure Position Blood Pressure Location Pulse Ox 98 98 Oxygen Delivery Method Room Air Room Air Room Air 08/23/24 10:40 08/23/24 11:59 08/23/24 11:59 Temperature 97.8 F 98.2 F Temperature Source Oral Pulse Rate 61 80 Pulse Strength Respiratory Rate 18 16 Respiratory Effort Normal Respiratory Depth Normal Respiratory Pattern Normal Blood Pressure 134/66 H 148/82 H Blood Pressure Mean 88 104 Blood Pressure Source Monitor Blood Pressure Position Semi-Fowlers Blood Pressure Location Right Arm Pulse Ox 100 100 Oxygen Delivery Method Room Air Room Air 08/23/24 12:04 Temperature Temperature Source Pulse Rate Pulse Strength Normal (2+) Respiratory Rate Respiratory Effort Respiratory Depth Respiratory Pattern Blood Pressure Blood Pressure Mean Blood Pressure Source Blood Pressure Position Blood Pressure Location Pulse Ox Oxygen Delivery Method Weight Weight: 129 lb Body Mass Index (BMI) 22.8 Medical Records Data Attestation: I reviewed the patient's medical records Lab / Micro Data Attestation: I reviewed the patient's lab results. 08/23/24 07:45 08/23/24 07:45 Labs: Laboratory Results - last 24 hr 08/23/24 07:45: WBC 7.9, RBC 3.52 L, Hgb 11.3 L, Hct 33.9 L, MCV 96.3, MCH 32.1 H, MCHC 33.3, RDW Std Deviation 58.6 H, RDW Coeff of Catarino 17.0 H, Plt Count 182, MPV 10.9, Immature Gran % (Auto) 0.500, Neut % (Auto) 82.3 H, Lymph % (Auto) 8.1 L, Gonzales % (Auto) 8.6, Eos % (Auto) 0.1, Baso % (Auto) 0.4, Absolute Neuts (auto) 6.5, Absolute Lymphs (auto) 0.64 L, Nucleated RBC % 0, PT 15.5 H, INR 1.2, Sodium 140, Potassium 3.9, Chloride 104, Carbon Dioxide 22.1, Anion Gap 14, BUN 22 H, Creatinine 0.63 L, Estim Creat Clear Calc 48.72 L, Est GFR (MDRD) Non-Af 91, BUN/Creatinine Ratio 34.8 H, Glucose 116 H, Calcium 9.2, Magnesium 2.1, Total Creatine Kinase 128 Imaging Radiology Impression Wrist X-Ray 08/23/24 07:31 IMPRESSION: Comminuted impacted fracture of the distal radius with intra-articular extension. Reading Location: [facility] Independent review of the films shows comminuted distal radius fracture with impaction and slight loss of radial height and inclination however, patient already has Luno–radial gahj-tf-igus osteoarthritis with subchondral sclerosis additionally there is scapholunate widening appreciated. Brain CT 08/23/24 08:06 IMPRESSION: 1. Generalized brain atrophy. 2. Small vessel ischemic/degenerative changes. 3. No acute intracranial hemorrhage, midline shift or mass effect. If symptoms persist, further evaluation with MRI is recommended. Reading Location: [facility] Assessment & Plan Assessment/Plan (1) Closed fracture of distal end of left radius: PLAN: Natural history of the disease process and treatment options were discussed with the patient. Patient has chronic wrist osteoarthritis with acute distal radius fracture. Based on fracture alignment, age and patient's health we discussed operative versus nonoperative interventions. At this time nonoperative treatment plan was recommended as best course of action. Patient is currently in a splint. She will maintain the splint until she is able to follow-up in the office at that time the swelling is decreased will transfer her to a cast. Patient will likely need 6 to 8 weeks of immobilization followed by intense rehabilitation to return restore range of motion and strength of the wrist. Continue to follow the fracture clinically to make sure that fracture alignment remains stable. Loss of alignment of the fracture may result in need for surgical open or close reduction. Patient demonstrates an understanding wish to proceed in this treatment manner. She is currently admitted to the hospital due to the fact that she has difficulty with getting in and out of seated position. I did discuss the patient she may benefit greatly from a motorized lift chair at home. Additionally we will allow the patient to bear weight through the elbow however she can do no weightbearing to the left wrist. This would allow for a platform walker with weightbearing to the elbow on the left. Patient demonstrates an understanding and does wish to proceed in this manner she is happy with current treatment plan. Please have the patient contact my office for follow-up 2 weeks after injury. If patient remains in nursing facility they can contact my office and we can obtain remote x-rays and direct care in that manner. [facility] Office:
[2024-08-23] MEDS: Budesonide Respules 0.5 MG/2 ML AMPUL.NEB. INHALATION (18:50)
[2024-08-23] MEDS: Multivitamin (Healthy Eyes) Capsule 1 CAP PO (20:13)
[2024-08-24] VITALS (8 sets, daily range): BP systolic 114–152; BP diastolic 60–68; PULSE 71–100; RESP 16–20; TEMP 36.2–37; O2SAT 95–100; BMI 23.1
[2024-08-24 05:51] LABS: Hematocrit 34.6 % (37-47); Hemoglobin 11.4 g/dL (12.0-15.0); Immature Granulocytes Count 0.020 X10^3/uL (0.0-0.0); Mean Corp Hgb Conc 32.9 g/dL (32-36); Mean Corpuscular Volume 96.6 fL (81-99); Mean Platelet Vol. 11.0 fl (6.2-12.0); NRBC Flagged by Analyzer 0 % (0-5); Platelet Count 154 K/mm3 (150-450); RBC Distribution Width CV 17.2 % (11.6-14.6); RBC Distribution Width SD 61.1 fl (35.1-43.9); Red Blood Count 3.58 M/mm3 (4.2-5.4); White Blood Count 5.4 K/mm3 (4.4-11.0)
[2024-08-24] MEDS: Budesonide Respules 0.5 MG/2 ML AMPUL.NEB. INHALATION ×2 (06:40→19:30)
[2024-08-24 06:51] LABS: Prothrombin Time (Protime)PT. 16.3 SECONDS (11.7-14.9)
[2024-08-24 07:10] LABS: Anion Gap 13 (5-15); BUN 15 mg/dL (4-19); BUN/Creat Ratio 22.5 RATIO (10-20); Calcium,Total 9.0 mg/dL (7.6-11.0); Carbon Dioxide 21.9 mmol/L (21.0-32.0); Chloride 105 mmol/L (98-108); Estimated Creatinine Clearance 48.72 ml/min (50-250); Glucose 90 mg/dL (70-99); Potassium 3.9 mmol/L (3.3-5.1)
[2024-08-24] MEDS: Metoprolol(XL)Succ 25 MG Tablet PO (08:28)
[2024-08-24] MEDS: Senna/Docusate Sodium 1 Tablet 2 TABLET PO (08:29)
[2024-08-24] MEDS: Fluticasone 0.05% 1 SPRAY NASAL.SRY NASAL (08:30)
[2024-08-24] MEDS: Cholecalciferol (VIT D3) 25 MCG TABLET (1,000 UNITS) PO (08:30)
[2024-08-24] MEDS: Multivitamin (Healthy Eyes) Capsule 1 CAP PO ×2 (08:30→21:33)
--- NOTE | 2024-08-24 08:49 | PCM.PN.HOSP ---
Reason for Visit Reason for Visit: Diagnoses Unspecified injury of head, initial encounter (08/23/24) Unspecified fracture of the lower end of left radius, initial encounter for closed fracture (08/23/24) Objective Data Objective Data Vital Signs: Vital Signs Temp Pulse Resp BP Pulse Ox O2 Del Method 98.3 F 95 20 H 145/60 H 95 Room Air 08/24/24 08:26 08/24/24 08:28 08/24/24 08:26 08/24/24 08:26 08/24/24 08:26 08/24/24 08:26 Oxygen Delivery Method Room Air Weight: 130 lb 8.218 oz Body Mass Index (BMI) 23.1 Intake & Output: Intake and Output for Last 24 Hours 08/22/24 08/23/24 08/24/24 23:59 23:59 23:59 Intake Total 1450 / 1450 200 / 200 Output Total 1350 / 1350 Balance 1450 / 1150 -1150 / -1150 Lab / Micro Data 08/24/24 04:50 08/24/24 04:50 Labs: Laboratory Results - last 24 hr 08/23/24 07:45: Sodium 140, Potassium 3.9, Chloride 104, Carbon Dioxide 22.1, Anion Gap 14, BUN 22 H, Creatinine 0.63 L, Estim Creat Clear Calc 48.72 L, Est GFR (MDRD) Non-Af 91, BUN/Creatinine Ratio 34.8 H, Glucose 116 H, Calcium 9.2, Magnesium 2.1, Total Creatine Kinase 128 08/24/24 04:50: WBC 5.4, RBC 3.58 L, Hgb 11.4 L, Hct 34.6 L, MCV 96.6, MCH 31.8, MCHC 32.9, RDW Std Deviation 61.1 H, RDW Coeff of Catarino 17.2 H, Plt Count 154, MPV 11.0, Immature Gran % (Auto) 0.400, Neut % (Auto) 69.1, Lymph % (Auto) 15.8 L, [place] % (Auto) 12.6 H, Eos % (Auto) 1.5, Baso % (Auto) 0.6, Absolute Neuts (auto) 3.7, Absolute Lymphs (auto) 0.85, Nucleated RBC % 0, PT 16.3 H, INR 1.3, Sodium 140, Potassium 3.9, Chloride 105, Carbon Dioxide 21.9, Anion Gap 13, BUN 15, Creatinine 0.65 L, Estim Creat Clear Calc 48.72 L, Est GFR (MDRD) Non-Af 91, BUN/Creatinine Ratio 22.5 H, Glucose 90, Calcium 9.0 Physical Exam Narrative Seen and examined Patient was seen by orthopedic surgeon. Conservative management for now General: Alert, Oriented x3, Cooperative HEENT: Atraumatic, PERRLA, EOMI, Normocephalic. Oral: Oral mucosa moist no Gingival or Mucosal Lesions/ Ulcerations Neck: Supple, No JVD, Negative Carotid Bruits Chest wall/Lungs: Air entry diminished in bilateral lung bases. Lungs clear. Cardiovascular: Regular rate and rhythm, Normal S1,S2, No obvious M/G/R Abdomen: Bowel Sounds Present, Soft, Non Tender, Non-Distended : No dysuria. No renal angle tenderness. No suprapubic tenderness. Extremities: No edema, Capillary Refill Less than 3 Seconds Skin: Left forearm splinted, bandaged with Dick wrap bandage. Mild tenderness over the Dick wrap bandage. Mild bruising around left supraorbital/forehead region. Musculoskeletal: Bilateral knee valgus deformity with degenerative arthritis. Chronic RA with bony deformity of wrist and hand joints. Neurological: Cranial nerves II-XII grossly intact, DTR 2+/4. No acute focal neurological deficit. Psych/Mental Status: Normal Affect, Appropriate. Assessment & Plan Assessment/Plan (1) Closed fracture of distal end of left radius: (2) Closed head injury without concussion: PLAN: Plan This 72-year-old female was brought to ED when she fell down, mechanism unclear resulting into left wrist fracture. 1. Acute debility of ADL due to closed fracture of distal end of left radius/Colles' fracture: [facility] views of x-ray left wrist x-ray reviewed shows comminuted impacted fracture of distal radius with intra-articular extension. ED patient is splinted in the left wrist but she has trouble in functioning and doing her house chores as she lives alone. Orthopedic surgeon Dr. Amanda consulted by ED physician. Pain control PT and OT ordered. 08/24: Orthopedic surgeon Dr. Amanda consultation note reviewed and appreciated. Conservative management for now. He advised to maintain the splint till she follow-up in the office after 2 weeks and at that time plan to change it to a cast. Will need likely 6 to 8 weeks of ambulation followed by intensive rehab to restore ROM and strength of the wrist. Follow-up in 2 weeks in [facility]. 2. Closed head injury without concussion from fall: Patient denies LOC. CT brain reviewed does not show acute intracranial abnormality. Generalized brain atrophy. 7/6 superficial bruises healing. 3. Severe aortic stenosis status post TAVR: On metoprolol succinate 25 mg daily, furosemide 20 mg daily 4. Chronic DVT status post IVC filter: Patient on warfarin. INR is 1.2. Continue home regimen of warfarin. 5 mg on Sunday and and 6 mg on rest of the days. 5. COPD/history of histoplasmosis twice: Patient completed treatment of itraconazole for 1 year for histoplasmosis about few months ago. Currently not in COPD exacerbation. Continue home maintenance inhaler and as needed albuterol. Incentive spirometry and PEP. 6. Chronic RA and degenerative arthritis: Patient on methotrexate, folic acid, sulfasalazine. She is not on biologic. She also has chronic degenerative arthritis of knees. She can still walk. 7. Anemia of chronic disease: H&H 11.3/34%. MCV 96.3. Platelet count 182K. Patient was last admitted in August 08 4 GI bleed. EGD on 08/09/2023 showed normal esophagus, small hiatus hernia, nonbleeding duodenal ulcer with no stigmata of bleeding. 3 bleeding in the dysplastic lesion seen jejunum treated with heater probe. Patient on ferrous sulfate. Vitamin C added. Continue folic acid. 8. DVT prophylaxis: INR 1.2, subtherapeutic. Continue home regimen. Monitor INR daily Living will/advanced directive/end of life care: Patient does have living will or advanced directive. She is a . After discussion of benefits/risks procedures involved with full code, DNR CC arrest and DNR CC, the patient opted for full code. Patient does want artificial life support including intubation, tube feed, ventilator and/chest compression, central venous catheter, vasopressor and DC shock if needed Total time spent in [id number] encounter in discussion of advanced directive 17 minutes. Laboratory Results 08/23/24 07:45: WBC 7.9, RBC 3.52 L, Hgb 11.3 L, Hct 33.9 L, MCV 96.3, MCH 32.1 H, MCHC 33.3, RDW Std Deviation 58.6 H, RDW Coeff of Catarino 17.0 H, Plt Count 182, MPV 10.9, Immature Gran % (Auto) 0.500, Neut % (Auto) 82.3 H, Lymph % (Auto) 8.1 L, [place] % (Auto) 8.6, Eos % (Auto) 0.1, Baso % (Auto) 0.4, Absolute Neuts (auto) 6.5, Absolute Lymphs (auto) 0.64 L, Nucleated RBC % 0, PT 15.5 H, INR 1.2, Sodium 140, Potassium 3.9, Chloride 104, Carbon Dioxide 22.1, Anion Gap 14, BUN 22 H, Creatinine 0.63 L, Estim Creat Clear Calc 48.72 L, Est GFR (MDRD) Non-Af 91, BUN/Creatinine Ratio 34.8 H, Glucose 116 H, Calcium 9.2, Total Creatine Kinase 128 08/23/24 07:45: Sodium 140, Potassium 3.9, Chloride 104, Carbon Dioxide 22.1, Anion Gap 14, BUN 22 H, Creatinine 0.63 L, Estim Creat Clear Calc 48.72 L, Est GFR (MDRD) Non-Af 91, BUN/Creatinine Ratio 34.8 H, Glucose 116 H, Calcium 9.2, Magnesium 2.1, Total Creatine Kinase 128 Laboratory Results 08/24/24 04:50: WBC 5.4, RBC 3.58 L, Hgb 11.4 L, Hct 34.6 L, MCV 96.6, MCH 31.8, MCHC 32.9, RDW Std Deviation 61.1 H, RDW Coeff of Catarino 17.2 H, Plt Count 154, MPV 11.0, Immature Gran % (Auto) 0.400, Neut % (Auto) 69.1, Lymph % (Auto) 15.8 L, [place] % (Auto) 12.6 H, Eos % (Auto) 1.5, Baso % (Auto) 0.6, Absolute Neuts (auto) 3.7, Absolute Lymphs (auto) 0.85, Nucleated RBC % 0, PT 16.3 H, INR 1.3, Sodium 140, Potassium 3.9, Chloride 105, Carbon Dioxide 21.9, Anion Gap 13, BUN 15, Creatinine 0.65 L, Estim Creat Clear Calc 48.72 L, Est GFR (MDRD) Non-Af 91, BUN/Creatinine Ratio 22.5 H, Glucose 90, Calcium 9.0 Clinical Impression(s) from Imaging Studies Wrist X-Ray 08/23/24 07:31 IMPRESSION: Comminuted impacted fracture of the distal radius with intra-articular extension. Reading Location: [facility] Brain CT 08/23/24 08:06 IMPRESSION: 1. Generalized brain atrophy. 2. Small vessel ischemic/degenerative changes. 3. No acute intracranial hemorrhage, midline shift or mass effect. If symptoms persist, further evaluation with MRI is recommended. Reading Location: [facility] Charges/Coding Visit Charges Inpatient E&M: 62305 Subs Hosp L2
[2024-08-24] MEDS: 0.9% Saline Lock 10 ML Syringe IV (21:34)
[2024-08-25] VITALS (10 sets, daily range): BP systolic 121–135; BP diastolic 47–64; PULSE 75–104; RESP 16–20; TEMP 36.3–36.9; O2SAT 95–100; BMI 23.6
[2024-08-25 05:57] LABS: Prothrombin Time (Protime)PT. 17.7 SECONDS (11.7-14.9)
[2024-08-25] MEDS: Budesonide Respules 0.5 MG/2 ML AMPUL.NEB. INHALATION ×2 (07:10→18:38)
[2024-08-25] MEDS: Metoprolol(XL)Succ 25 MG Tablet PO (10:08)
[2024-08-25] MEDS: Cholecalciferol (VIT D3) 25 MCG TABLET (1,000 UNITS) PO (10:08)
[2024-08-25] MEDS: Multivitamin (Healthy Eyes) Capsule 1 CAP PO ×2 (10:08→22:08)
[2024-08-25] MEDS: Senna/Docusate Sodium 1 Tablet 2 TABLET PO (10:09)
[2024-08-25] MEDS: Fluticasone 0.05% 1 SPRAY NASAL.SRY NASAL (10:09)
--- NOTE | 2024-08-25 13:24 | CASEMGMT ---
Addendum entered by Jasmin Woodruff 08/25/24 14:19: TCU unable to accept. DCA notified of request fro referralto [facility]. BIBI Carrasquillo Original Note: Social Work- A list of SNF providers including quality and resource use data and consistent with the patient’s preferred geographic region, medical needs, and insurance network were provided from the [facility] Guide. Pt reports that she has been to TCU in the past and would like to make TCU FOC. [facility] would be an alternate choice, as pt has been there prior as well. SW completed referral to TCU. [facility] updated on referral selections. [facility] remains available to follow. BIBI Carrasquillo
--- NOTE | 2024-08-25 14:24 | CASEMGMT ---
Addendum entered by Maricarmen Collier 08/26/24 09:45: [facility] has accepted and will submit for precert. Maricarmen Collier DC Planning Asst. Original Note: Discharge Planning Referral sent to [facility]. Maricarmen Collier DC Planning Asst.
--- NOTE | 2024-08-25 16:48 | CHAPLAIN ---
Type of Pastoral Visit _x__ Initial Visit ___ Follow-up Visit ___ On-call Visit ___ General Patient Visit ___ Spiritual Assessment ___ Family Conference ___ Bereavement ___ Rapid Response ___ Code Blue ___ Other (describe below) Pastoral Care Referral From _x__ Patient ___ Family ___ Nurse ___ Physician ___ Skein Winder ___ Circulator ___ Other (describe below) Sacrament/Intervention _x__ Active listening ___ Anointing ___ Baptist ___ Bereavement ___ Communion ___ Adia exploration ___ _x__ Life review _x__ Prayer ___ Reconciliation ___ Sacrament of Sick _x__ Supportive presence ___ Wedding ___ Other (describe below) Pastoral Comments very talkative patient and one who welcomed presence and could listen to her; pt has decisions to make and seeks support and prayers
[2024-08-25] MEDS: 0.9% Saline Lock 10 ML Syringe IV (17:54)
--- NOTE | 2024-08-25 18:19 | PCM.PN.HOSP ---
Reason for Visit Reason for Visit: Diagnoses Unspecified injury of head, initial encounter (08/23/24) Unspecified fracture of the lower end of left radius, initial encounter for closed fracture (08/23/24) Subjective Subjective Patient was seen and examined today, we are currently awaiting approval for her to go to a skilled facility for short-term rehab services. Objective Data Objective Data Vital Signs: Vital Signs Temp Pulse Resp BP Pulse Ox O2 Del Method 98.5 F 81 17 123/61 H 95 Room Air 08/25/24 11:35 08/25/24 15:12 08/25/24 15:12 08/25/24 11:35 08/25/24 11:35 08/25/24 11:35 Oxygen Delivery Method Room Air Weight: 60.5 kg Body Mass Index (BMI) 23.6 Intake & Output: Intake and Output for Last 24 Hours 08/23/24 08/24/24 08/25/24 23:59 23:59 23:59 Intake Total 1450 / 1450 440 / 440 Output Total 2050 / 2050 950 / 950 Balance 1450 / 1150 -1610 / -1610 -950 / -950 Lab / Micro Data 08/24/24 04:50 08/24/24 04:50 Labs: Laboratory Results - last 24 hr 08/25/24 05:20: PT 17.7 H, INR 1.4 Physical Exam Const alert, oriented x3, no apparent distress and healthy appearing General Appearance: cooperative, well kempt and well developed Orientation / Consciousness: awake, oriented to person, oriented to place and oriented to time HEENT normocephalic and moist oral mucous membranes Eyes PERRL, EOMs intact bilaterally and conjunctivae normal Neck supple, no JVD, thyroid normal and no carotid bruits General: trachea midline Resp normal respiratory effort and clear to auscultation bilaterally Auscultation: Negative for rales, rhonchi or wheezes Cardio regular rate, regular rhythm, S1 normal heart sound, S2 normal heart sound, no murmurs, no rub and no gallops GI normal to inspection, nondistended, normoactive bowel sounds, soft to palpation, non-tender and non-distended Extremity Extremity Narrative: Patient has a cast over her left forearm and wrist Skin no rashes or lesions noted General Skin Exam: no breakdown Neuro oriented x3, CN's II-XII intact bilaterally, no focal motor deficits and no sensory deficits noted Sensorium / Orientation: awake and alert Speech: speech normal Psych affect normal Assessment & Plan Assessment/Plan (1) Declining functional status: PLAN: Plan 1. Acute on chronic debility secondary to multiple medical problems and acute left wrist fracture-PT and OT will continue, again we are awaiting approval for the patient to go to a skilled facility for skilled services #2 chronic use of 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-patient's INR on admission was subtherapeutic at 1.2, INR will be monitored and warfarin will be adjusted if needed #3 chronic obstructive pulmonary disease-patient is on aerosol treatments #4 valvular heart disease-patient underwent a TAVR in April of this year Total clinical time spent by myself addressing the patient's medical issues, reviewing all of her data, and collaborating with patient's care team: 35 minutes Charges/Coding Visit Charges Inpatient E&M: 42149 Subs Hosp L2
[2024-08-26] VITALS (10 sets, daily range): BP systolic 93–142; BP diastolic 56–73; PULSE 76–96; RESP 16–20; TEMP 36.4–37; O2SAT 96–100; BMI 23.4
[2024-08-26 06:43] LABS: Prothrombin Time (Protime)PT. 17.7 SECONDS (11.7-14.9)
[2024-08-26] MEDS: Budesonide Respules 0.5 MG/2 ML AMPUL.NEB. INHALATION ×2 (07:08→21:24)
--- NOTE | 2024-08-26 09:16 | CASEMGMT ---
PAULA POND met with pt on 08/25/24 and completed CORBETT. Met with patient to complete CORBETT form. CORBETT form and its content were verbally explained and patient's questions were answered to the best of my ability. Patient voiced understanding and signed CORBETT form. Patient provided a copy of signed CORBETT form and original placed in patient's chart. Patient had no further questions. Maricarmen Collier, Discharge Planning Asst
[2024-08-26] MEDS: Cholecalciferol (VIT D3) 25 MCG TABLET (1,000 UNITS) PO (09:19)
[2024-08-26] MEDS: Multivitamin (Healthy Eyes) Capsule 1 CAP PO ×2 (09:19→19:59)
[2024-08-26] MEDS: Metoprolol(XL)Succ 25 MG Tablet PO (09:19)
[2024-08-26] MEDS: Fluticasone 0.05% 1 SPRAY NASAL.SRY NASAL (09:20)
[2024-08-26] MEDS: 0.9% Saline Lock 10 ML Syringe IV ×2 (09:20→17:19)
--- NOTE | 2024-08-26 10:12 | CASEMGMT ---
Met with patient to complete CORBETT form. CORBETT form and its content were verbally explained and patient's questions were answered to the best of my ability. Patient voiced understanding and signed CORBETT form. Patient provided a copy of signed CORBETT form and original placed in patient's chart. Patient had no further questions. PAULA Wang CM.
--- NOTE | 2024-08-26 16:24 | CASEMGMT ---
Addendum entered by Maricarmen Collier 08/26/24 16:29: Auth is good effectivie 08/27/24. Maricarmen Collier DC Planning Asst. Original Note: Discharge Planning [facility] has obtained auth to admit. SW updated. Maricarmen Collier DC Planning Asst.
--- NOTE | 2024-08-26 16:54 | PCM.PN.HOSP ---
Reason for Visit Reason for Visit: Diagnoses Other malaise (08/23/24) Unspecified injury of head, initial encounter (08/23/24) Unspecified fracture of the lower end of left radius, initial encounter for closed fracture (08/23/24) Subjective Subjective Patient was seen and examined today, I removed her from telemetry-she did not appear to be tachycardic. We are currently awaiting approval for her to go to a skilled facility for short-term skilled services. Objective Data Objective Data Vital Signs: Vital Signs Temp Pulse Resp BP Pulse Ox O2 Del Method 97.6 F L 76 20 H 134/56 H 99 Room Air 08/26/24 09:18 08/26/24 13:08 08/26/24 13:08 08/26/24 09:18 08/26/24 09:18 08/26/24 10:00 Oxygen Delivery Method Room Air Weight: 60.1 kg Body Mass Index (BMI) 23.4 Intake & Output: Intake and Output for Last 24 Hours 08/24/24 08/25/24 08/26/24 23:59 23:59 23:59 Intake Total 440 / 440 240 / 240 240 / 240 Output Total 2049 / 2049 1350 / 1350 1000 / 1000 Balance -1610 / -1610 -1110 / -1110 -760 / -760 Lab / Micro Data 08/24/24 04:50 08/24/24 04:50 Labs: Laboratory Results - last 24 hr 08/26/24 05:56: PT 17.7 H, INR 1.4 Physical Exam Narrative alert, oriented x3, no apparent distress and healthy appearing General Appearance: cooperative, well kempt and well developed Orientation / Consciousness: awake, oriented to person, oriented to place and oriented to time HEENT normocephalic and moist oral mucous membranes Eyes PERRL, EOMs intact bilaterally and conjunctivae normal Neck supple, no JVD, thyroid normal and no carotid bruits General: trachea midline Resp normal respiratory effort and clear to auscultation bilaterally Auscultation: Negative for rales, rhonchi or wheezes Cardio regular rate, regular rhythm, S1 normal heart sound, S2 normal heart sound, no murmurs, no rub and no gallops GI normal to inspection, nondistended, normoactive bowel sounds, soft to palpation, non-tender and non-distended Extremity Extremity Narrative: Patient has a cast over her left forearm and wrist Skin no rashes or lesions noted General Skin Exam: no breakdown Neuro oriented x3, CN's II-XII intact bilaterally, no focal motor deficits and no sensory deficits noted Sensorium / Orientation: awake and alert Speech: speech normal Psych affect normal Assessment & Plan Assessment/Plan (1) Declining functional status: PLAN: Plan 1. Acute on chronic debility secondary to multiple medical problems and acute left wrist fracture-PT and OT will continue, again we are awaiting approval for the patient to go to a skilled facility for skilled services #2 chronic use of 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-patient's INR on admission was subtherapeutic at 1.2, INR will be monitored and warfarin will be adjusted if needed-patient's INR today was 1.4 again, I will administer extra warfarin and recheck the INR tomorrow #3 chronic obstructive pulmonary disease-patient is on aerosol treatments #4 valvular heart disease-patient underwent a TAVR in April of this year Total clinical time spent by myself addressing the patient's medical issues, reviewing all of her data, and collaborating with patient's care team: 35 minutes Charges/Coding Visit Charges Inpatient E&M: 47211 Subs Hosp L2
[2024-08-27] VITALS (7 sets, daily range): BP systolic 117–143; BP diastolic 53–67; PULSE 79–90; RESP 16–18; TEMP 36.6–36.8; O2SAT 97–98; BMI 24.0
[2024-08-27 06:44] LABS: Prothrombin Time (Protime)PT. 20.6 SECONDS (11.7-14.9)
[2024-08-27] MEDS: Budesonide Respules 0.5 MG/2 ML AMPUL.NEB. INHALATION (06:44)
[2024-08-27] MEDS: Fluticasone 0.05% 1 SPRAY NASAL.SRY NASAL (08:00)
[2024-08-27] MEDS: Multivitamin (Healthy Eyes) Capsule 1 CAP PO (08:01)
[2024-08-27] MEDS: Metoprolol(XL)Succ 25 MG Tablet PO (11:31)
[2024-08-27] MEDS: Cholecalciferol (VIT D3) 25 MCG TABLET (1,000 UNITS) PO (11:32)
[2024-08-27] MEDS: Senna/Docusate Sodium 1 Tablet 2 TABLET PO (11:32)
--- NOTE | 2024-08-27 11:32 | CASEMGMT ---
Social Work- SW met with pt to update on precert approval and plans for pending discharge; pt agreeable. Plan: [facility]; skilled level of care BIBI Carrasquillo
--- NOTE | 2024-08-27 11:58 | TREXTCAR_ITS ---
Diet Diet Order/Speech Therapy: INPATIENT Hospital Diet / Speech Therapy Order(s) 08/23/24 11:43 Diet: Regular - General Food consistency:: Regular Liquid Consistency:: Regular/Thin Routine Orders/Code Status Code Status: Full Code DC O2, CPAP, BIPAP needs Home O2 Discharge instructions: No Wound(s) left wrist: Wound Type: Splinted and wrapped left outer eye: Wound Type: Abrasion Problem/Diagnosis (1) Declining functional status: Status: Acute Code(s): R53.81 - Other malaise (2) Closed fracture of distal end of left radius: Status: Acute Code(s): S52.502A - Unspecified fracture of the lower end of left radius, initial encounter for closed fracture Plan 1. Acute on chronic debility secondary to multiple medical problems and acute left wrist fracture-PT and OT will continue, again we are awaiting approval for the patient to go to a skilled facility for skilled services #2 chronic use of 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-patient's INR on admission was subtherapeutic at 1.2, INR will be monitored and warfarin will be adjusted if needed-patient's INR today was 1.7 again, I will administer extra warfarin and recheck the INR tomorrow #3 chronic obstructive pulmonary disease-patient is on aerosol treatments #4 valvular heart disease-patient underwent a TAVR in April of this year #5 Past history of pulmonary emblosm #6 Rheumatoid arthritis Total clinical time spent by myself addressing the patient's medical issues, reviewing all of her data, and collaborating with patient's care team: 35 minutes Allergies/Procedures Done in Hospital Allergies Penicillins Allergy (Severe, Verified 06/20/24 10:10) Anaphylaxis Type of Care/Length of Stay Estimated LOS: Convalescent Care Less Than 30 days Type of Care Needed: Skilled Rehab Potential: Good Prognosis: Good Additional Orders/Day of Discharge Day of Discharge: 08/27/24 Discharge Plan Admission Admit Date/Time: 08/23/24 10:24 Primary Reason for Your Visit: Generalized weakness, left wrist fracture Attending Provider: Michael Chan Primary Care Provider: Deyanira Pak Consulting Providers: Burak Amanda; Erasmo House Discharge Orders/Prescriptions Prescriptions: New gabapentin 300 mg Capsule 300 mg PO BID Qty: 0 0RF oxycodone 5 mg Tablet 2.5 - 5 mg PO Q4H PRN PRN (Reason: Pain Score 4-10) 2 Days Qty: 6 0RF warfarin [Jantoven] 6 mg Tablet 6 mg PO DINNER Qty: 0 0RF Continued fluticasone propion-salmeterol [Wixela Inhub] 250-50 mcg/dose blister with device 1 inh inhalation BID sulfasalazine 500 mg tablet,delayed release (DR/EC) 1 g PO BID methotrexate sodium 2.5 mg tablet 10 mg PO QWEEK Patient Comments: takes on sat. albuterol sulfate 90 mcg/actuation HFA aerosol inhaler 2 puff inhalation Q4H PRN PRN (Reason: shortness of breath or wheezing) cholecalciferol (vitamin D3) 25 mcg (1,000 unit) capsule 25 mcg PO QDAY folic acid 0.8 mg capsule 0.8 mg PO QDAY acetaminophen 500 mg tablet 1,000 mg PO TID ferrous sulfate 325 mg (65 mg iron) tablet 325 mg PO QDAY clindamycin HCl 300 mg capsule 600 mg PO ONCE Qty: 2 3RF Rx Instructions: Take 2 capsules by mouth 1 hour prior to dental appointments. PreserVision AREDS 2,148 mcg-113 mg-45 mg-17.4mg tablet 2 tab PO BID Rx Instructions: administer with AM and PM meals multivitamin [Daily Multi-Vitamin] Tablet 1 tab PO DAILY gabapentin 300 mg Capsule 300 mg PO Q12 Qty: 0 0RF potassium chloride 20 mEq Tablet,Er Particles/Crystals 20 meq PO BIDCM Qty: 0 0RF furosemide 20 mg tablet 20 mg PO DAILY PRN (Reason: edema) Spiriva Respimat 2.5 mcg/actuation mist 2 puff INHALATION DAILY fluticasone propionate 50 mcg/actuation spray,suspension 1 spray INTRANASAL DAILY diclofenac sodium [Voltaren Arthritis Pain] 1 % gel 4 g topical BID PRN PRN (Reason: knee pain) Qty: 100 0RF folic acid 1 mg tablet 1 mg PO DAILY warfarin 1 mg tablet 5 mg PO DAILY Rx Instructions: 5 mg and ., 6 mg every other day warfarin 5 mg tablet See Rx Instructions .ROUTE .COMPLEX Rx Instructions: 6mg orally Sun/Sun/Sun/Sun/sat, 5 mg orally / metoprolol succinate 25 mg tablet extended release 24 hr 25 mg PO QDAY Qty: 30 11RF Discontinued omega 2-iey-edr-fish oil [Fish Oil] 1,200 (144-216) mg capsule 1 cap PO DAILY Patient Comments: ON HOLD FOR COLONOSCOPY Referrals / Follow Up: Deyanira Pak MD [Primary Care Provider] - Burak Amanda MD [Med Staff - Active Staff] - See Referral Note (in one week- call to schedule appointment) Disposition Disposition (needs filled in before D/C Order can be placed): [facility]
--- NOTE | 2024-08-27 12:09 | PCM.DC.SUM ---
Providers Date of Admission: 08/23/24 Date of Discharge: 08/27/24 Primary Care Physician: Dr. Deyanira Pak MD Consultations 08/23/24 11:42 Consult: Orthopedics Routine Consulting Provider: Burak Amanda Reason for Consult: left wrist fracture EMERGENT Consult: No MD Notified: Yes Date Notified: 08/23/24 Time Notified: 10:29 Method of Notification: ED Physician Initiated Reason For Visit: FALL Diagnosis Discharge Diagnosis (1) Declining functional status: Status: Acute Code(s): R53.81 - Other malaise (2) Closed fracture of distal end of left radius: Status: Acute Code(s): S52.502A - Unspecified fracture of the lower end of left radius, initial encounter for closed fracture Plan 1. Acute on chronic debility secondary to multiple medical problems and acute left wrist fracture-PT and OT will continue, again we are awaiting approval for the patient to go to a skilled facility for skilled services #2 chronic use of 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-patient's INR on admission was subtherapeutic at 1.2, INR will be monitored and warfarin will be adjusted if needed-patient's INR today was 1.7 again, I will administer extra warfarin and recheck the INR tomorrow #3 chronic obstructive pulmonary disease-patient is on aerosol treatments #4 valvular heart disease-patient underwent a TAVR in April of this year #5 Past history of pulmonary emblosm #6 Rheumatoid arthritis Total clinical time spent by myself addressing the patient's medical issues, reviewing all of her data, and collaborating with patient's care team: 35 minutes Medications at Discharge Home Medications multivitamin (Daily Multi-Vitamin tablet) 1 tab PO DAILY supplement 03/19/23 vitamins A,C,J-yysq-tcktep 2,148 mcg-113 mg-45 mg-17.4 mg tablet (PreserVision AREDS) 2 tab PO BID eye health 03/19/23 gabapentin 300 mg capsule 300 mg PO Q12 nerve pain #0 caps 04/05/23 potassium chloride 20 mEq tablet,extended release(part/cryst) 20 meq PO BIDCM #0 tabs 04/27/23 fluticasone propionate 50 mcg/actuation nasal spray,suspension 1 spray intranasal DAILY 08/13/23 furosemide 20 mg tablet 20 mg PO DAILY PRN edema 08/13/23 tiotropium bromide 2.5 mcg/actuation mist for inhalation (Spiriva Respimat) 2 puff inhalation DAILY 08/13/23 diclofenac sodium 1 % topical gel (Voltaren Arthritis Pain) 4 g topical BID PRN PRN knee pain #100 grams 08/18/23 albuterol sulfate 90 mcg/actuation aerosol inhaler 2 puff inhalation Q4H PRN PRN shortness of breath or wheezing 06/13/24 cholecalciferol (vitamin D3) 25 mcg (1,000 unit) capsule 25 mcg PO QDAY 06/13/24 fluticasone 250 mcg-salmeterol 50 mcg/dose blistr powdr for inhalation (Wixela Inhub) 1 inh inhalation BID 06/13/24 folic acid 0.8 mg capsule 0.8 mg PO QDAY 06/13/24 methotrexate sodium 2.5 mg tablet 10 mg PO QWEEK 06/13/24 sulfasalazine 500 mg tablet,delayed release 1 g PO BID 06/13/24 acetaminophen 500 mg tablet 1,000 mg PO TID Pain Score 1-10 06/20/24 clindamycin HCl 300 mg capsule 600 mg (2 x 300 mg) PO ONCE #2 caps 06/20/24 ferrous sulfate 325 mg (65 mg iron) tablet 325 mg PO QDAY 06/20/24 metoprolol succinate 25 mg tablet,extended release 24 hr 25 mg PO QDAY #30 tabs 07/18/24 folic acid 1 mg tablet 1 mg PO DAILY 08/23/24 warfarin 1 mg tablet 5 mg PO DAILY 08/23/24 warfarin 5 mg tablet See Rx Instructions .Route .COMPLEX 08/23/24 gabapentin 300 mg capsule 300 mg PO BID #0 caps 08/27/24 oxycodone 5 mg tablet 2.5 mg (1/2 x 5 mg) PO Q4H PRN PRN Pain Score 4-10 20 days #30 tabs 08/27/24 oxycodone 5 mg tablet 5 mg PO Q4H PRN pain 20 days #60 tabs 08/27/24 warfarin 6 mg tablet (Jantoven) 6 mg PO DINNER #0 tabs 08/27/24 Hospital Course Operations None Procedures None Summary of Care Provided Minutes Spent on Discharge: 32 Hospital Course: This 79-year-old white female was seen in the emergency room at [facility] for evaluation of injuries sustained when she fell at home. Patient injured her left wrist as she used her left upper extremity to catch herself when she was falling, she had an abrasion on her face. Patient is taking warfarin chronically. 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 Patient finally used the telephone after she scooted herself around on the floor and called the squad to bring her in the hospital. Labs obtain urgency room included a CBC which was remarkable for hemoglobin of 11.3, INR was 1.2, chemistry profile was abnormal for BUN of 22. Wrist x-rays were performed and showed a comminuted impacted fracture of the distal radius with intra-articular extension. CT of the brain showed no acute intracranial hemorrhage midline shift or mass effect. Patient was placed in observation status on MedSurg 3, a splint had been applied in the emergency room to her wrist fracture and she was seen by PT and OT on the floor. She was felt to be a good candidate to go to a [place] [facility] facility for inpatient rehab services. On 08/27/2024, patient was seen and examined:alert, oriented x3, no apparent distress and healthy appearing General Appearance: cooperative, well kempt and well developed Orientation / Consciousness: awake, oriented to person, oriented to place and oriented to time HEENT normocephalic and moist oral mucous membranes Eyes PERRL, EOMs intact bilaterally and conjunctivae normal Neck supple, no JVD, thyroid normal and no carotid bruits General: trachea midline Resp normal respiratory effort and clear to auscultation bilaterally Auscultation: Negative for rales, rhonchi or wheezes Cardio regular rate, regular rhythm, S1 normal heart sound, S2 normal heart sound, no murmurs, no rub and no gallops GI normal to inspection, nondistended, normoactive bowel sounds, soft to palpation, non-tender and non-distended Extremity Extremity Narrative: Patient has a cast over her left forearm and wrist Skin no rashes or lesions noted General Skin Exam: no breakdown Neuro oriented x3, CN's II-XII intact bilaterally, no focal motor deficits and no sensory deficits noted Sensorium / Orientation: awake and alert Speech: speech normal Psych affect normal Patient was discharged to a [place] [facility] in stable condition on 08/27/2024 Weight / BMI Weight Weight: 61.5 kg Body Mass Index (BMI) 24.0 ABG / Lab / Microbiology Data 08/24/24 04:50 08/24/24 04:50 Laboratory: Laboratory Results - last 24 hr 08/27/24 06:15: PT 20.6 H, INR 1.7 D/C Instructions DC O2, CPAP, BIPAP Needs Home O2 Discharge instructions: No Meaningful Use Info Meaningful Use Meaningful Use Diagnoses (Choose all that apply): None applicable Discharge Plan Admission Admit Date/Time: 08/23/24 10:24 Primary Reason for Your Visit: Generalized weakness, left wrist fracture Attending Provider: Michael Chan Primary Care Provider: Deyanira Pak Consulting Providers: Burak Amanda; [facility] Instructions Additional Instructions / Restrictions: PT/INR daily times 3 days starting 08/28/24, maintain INR 2-3 Discharge Orders/Prescriptions Prescriptions: New gabapentin 300 mg Capsule 300 mg PO BID Qty: 0 0RF warfarin [Jantoven] 6 mg Tablet 6 mg PO DINNER Qty: 0 0RF Continued fluticasone propion-salmeterol [Wixela Inhub] 250-50 mcg/dose blister with device 1 inh inhalation BID sulfasalazine 500 mg tablet,delayed release (DR/EC) 1 g PO BID methotrexate sodium 2.5 mg tablet 10 mg PO QWEEK Patient Comments: takes on sat. albuterol sulfate 90 mcg/actuation HFA aerosol inhaler 2 puff inhalation Q4H PRN PRN (Reason: shortness of breath or wheezing) cholecalciferol (vitamin D3) 25 mcg (1,000 unit) capsule 25 mcg PO QDAY folic acid 0.8 mg capsule 0.8 mg PO QDAY acetaminophen 500 mg tablet 1,000 mg PO TID ferrous sulfate 325 mg (65 mg iron) tablet 325 mg PO QDAY clindamycin HCl 300 mg capsule 600 mg PO ONCE Qty: 2 3RF Rx Instructions: Take 2 capsules by mouth 1 hour prior to dental appointments. PreserVision AREDS 2,148 mcg-113 mg-45 mg-17.4mg tablet 2 tab PO BID Rx Instructions: administer with AM and PM meals multivitamin [Daily Multi-Vitamin] Tablet 1 tab PO DAILY gabapentin 300 mg Capsule 300 mg PO Q12 Qty: 0 0RF potassium chloride 20 mEq Tablet,Er Particles/Crystals 20 meq PO BIDCM Qty: 0 0RF furosemide 20 mg tablet 20 mg PO DAILY PRN (Reason: edema) Spiriva Respimat 2.5 mcg/actuation mist 2 puff INHALATION DAILY fluticasone propionate 50 mcg/actuation spray,suspension 1 spray INTRANASAL DAILY diclofenac sodium [Voltaren Arthritis Pain] 1 % gel 4 g topical BID PRN PRN (Reason: knee pain) Qty: 100 0RF folic acid 1 mg tablet 1 mg PO DAILY warfarin 1 mg tablet 5 mg PO DAILY Rx Instructions: 5 mg and ., 6 mg every other day warfarin 5 mg tablet See Rx Instructions .ROUTE .COMPLEX Rx Instructions: 6mg orally Sun/Sun/Sun/Sun/sun, 5 mg orally / metoprolol succinate 25 mg tablet extended release 24 hr 25 mg PO QDAY Qty: 30 11RF Discontinued omega 9-mnm-rxx-fish oil [Fish Oil] 1,200 (144-216) mg capsule 1 cap PO DAILY Patient Comments: ON HOLD FOR COLONOSCOPY No Action oxycodone 5 mg tablet 2.5 mg PO Q4H PRN PRN (Reason: Pain Score 4-10) 20 Days Qty: 30 0RF oxycodone 5 mg tablet 5 mg PO Q4H PRN (Reason: pain) 20 Days Qty: 60 0RF Referrals / Follow Up: Deyanira Pak MD [Primary Care Provider] - Burak Amanda MD [Med Staff - Active Staff] - See Referral Note (in one week-call to schedule appointment) Disposition Disposition (needs filled in before D/C Order can be placed): Assisted Facility Charges/Coding Visit Charges Inpatient E&M: 74790 Disch Hosp >30min
--- NOTE | 2024-08-27 12:18 | CASEMGMT ---
Social Work Precert has been obtained. Physician updated and pt is ready for discharge today. 7000 convalescent form completed in [facility]. SW met with pt and they are agreeable to discharge plan as stated above. DCA and bedside nurse notified of discharge. DCA to complete all final arrangements and notifications. Disposition: [facility], skilled level of care BIBI Carrasquillo
--- NOTE | 2024-08-27 14:14 | CASEMGMT ---
Discharge Planning Discharge orders, signed med, and transport time sent to [facility]. Physicians will transport pt by wheelchair at 4p. Nursing, SW, and pt updated. Pt states she will update her emergency contacts. Maricarmen Collier DC Planning Asst.
== END 2024-08-27 16:26 | disposition skilled nursing facility (03) ==
LOC: ED 10:35 → MS3 11:01
PROVIDERS: Admitting Provider Internal Medicine; Emergency Provider Emergency Medicine; PCP Internal Medicine; Visit Provider Internal Medicine
DX: S52.572A Other intraarticular fracture of lower end of left radius, initial encounter for closed fracture (principal); M06.9 Rheumatoid arthritis, unspecified; I50.9 Heart failure, unspecified; I11.0 Hypertensive heart disease with heart failure; J43.9 Emphysema, unspecified; W01.0XXA Fall on same level from slipping, tripping and stumbling without subsequent striking against object, initial encounter; R79.1 Abnormal coagulation profile; M17.0 Bilateral primary osteoarthritis of knee; Z79.899 Other long term (current) drug therapy; Z95.2 Presence of prosthetic heart valve; Z79.01 Long term (current) use of 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; Z87.891 Personal history of nicotine dependence; R53.81 Other malaise; S09.90XA Unspecified injury of head, initial encounter; K21.9 Gastro-esophageal reflux disease without esophagitis; Z86.718 Personal history of other venous thrombosis and embolism; Z86.711 Personal history of pulmonary embolism; Z79.51 Long term (current) use of inhaled steroids; M79.606 Pain in leg, unspecified; S00.12XA Contusion of left eyelid and periocular area, initial encounter; D63.8 Anemia in other chronic diseases classified elsewhere
CPT/HCPCS: 29125; 36415; 70450; 73110; 80048; 82550; 83735; 85025; 85610; 94640; 94668; 96360; 96361; 97116; 97161; 97165; 97530; 97535; 99221; 99285; A4216; G0378; J8610

== ENCOUNTER → 2024-09-29 05:00 | Outpatient (REF) | payer MEDICARE, SELFPAY ==
[2024-09-29 09:02] LABS: INR Fingerstick 1.9
== END ==
LOC: OLS.WHLEAS 05:00
PROVIDERS: PCP Internal Medicine; Visit Provider Internal Medicine
DX: I35.0 Nonrheumatic aortic (valve) stenosis (principal)
CPT/HCPCS: 36416; 85610

== ENCOUNTER → 2024-10-02 05:00 | Outpatient (REF) | payer MEDICARE, SELFPAY ==
--- OUTSIDE RECORDS SUMMARY | 2024-10-02 04:29 | XMS RPT_ITS | CCD ---
Author Organization [facility] Care Team Providers Care Body Care Manager Name Role Phone Mykel Santamaria Unavailable Unavailable Mykel Santamaria Unavailable Unavailable UNKNOWN, REFERR Unavailable Unavailable Will Hurley Attending Unavailable PROVIDER, UNKNOWN Referring Unavailable No, PCP Primary Care Unavailable Claudine Durán MD Primary Care Provider Will Hurley Unavailable [phone] Gold Colón RN Unavailable UnavailClaudine Cannon MD Primary Care Provider Will Hurley Unavailable Gold Colón RN Unavailable Unavailabl Will Foote Unavailable Lulú Ramos RN Unavailable Gold Colón RN Unavailable UnavailClaudine Cannon MD Primary Care Provider Will Hurley Unavailable Rachel RN, Lulú Unavailable [phone] Lulú Ramos RN Unavailable [phone] Paul MITCHELL, Ilda Unavailable Paul RN, Ilda Unavailable Rachel RN, Lulú Unavailable [phone] Lynne Maynard RN Unavailable Unavailable Dr. Claudine Durán Primary Care Provider Dr. Martín Cornejo Emergency Provider [phone] Dr. Laine Veras Admit Provider Dr. Laine Veras Other Provider Dr. Alisa Mathew Attending Provider Dr. Alisa Mathew Other Provider Dr. Jasmyn Chan Other Provider Friend, Dr. Carmona Attending Provider Dr. Bob Tariq [...] Provider Dr. Jorgito Agarwal Other Provider Sharon LABEL CUTTER, LABEL CUTTER-C Rosalina Other Provider Dr. Jasmyn Chan Referring Provider Dr. Alisa Mathew Referring Provider Dr. Claudine Durán Referring Provider Dr. Claudine Durán Primary Care Provider Dr. Martín Cornejo Emergency Provider 1([facility])[phone] Dr. Laine Veras Admit Provider Dr. Laine Veras Other Provider Dr. Alisa Mathew Attending Provider Dr. Alisa Mathew Other Provider Dr. Jasmyn Chan Referring Provider 1([facility])[phone] Dr. Jasmyn Chan Other Provider 1([facility])[phone] Esteban, Dr. Carmona Attending Provider 1([facility])[phone] Dr. Bob Tariq Attending Provider 1([facility])[phone] Alisa Mathew Referring Provider Dr. Emery Schofield Attending Provider Dr. Jasmyn Chan Attending Provider Dr. Naman Meredith Other Provider Dr. Lg Rios Other Provider 1([facility])[phone] Rachael Weiss Other Provider Dr. Stevan Rodríguez Other Provider Dr. Jing Reyes Other Provider Dr. Efrain Quevedo Other Provider Dr. Frederick Dick Other Provider Dr. Claudine Durán Referring Provider 1([facility])[phone] Dr. Geno Rush Other Provider 1([facility])[phone] Dr. Adarsh Prakash Other Provider Dr. Alcides Abel Attending Provider Dr. Alcides Abel Other Provider Dr. London Sandra Other Provider Dr. Chris Royal Other Provider Unavailable Dr. Leobardo Calloway Other Provider 1([facility])[phone] Jorgito Agarwal Other Provider Sharon LABEL CUTTER, LABEL CUTTER-C Rosalina Other Provider 1([facility])[phone] Dr. Edinson Irvin Chi Referring Provider 1([facility])[phone] Claudine Durán Primary Care Provider Dr. Martín Cornejo Emergency Provider Dr. Laine Veras Admit Provider Dr. Laine Veras Other Provider Dr. Alisa Mathew Attending Provider Dr. Alisa Mathew Other Provider Dr. Jasmyn Chan Referring Provider Dr. Jasmyn Chan Other Provider Friend, Dr. Carmona Attending Provider Dr. Bob Tariq Attending Provider Dr. Alisa Mathew Referring Provider Dr. Emery Schofield Attending Provider Dr. Jasmyn Chan Attending Provider Dr. Naman Meredith Other Provider Dr. Lg Rios Other Provider Isela, Dr. Cano Other Provider Dr. Stevan Rodríguez Other Provider Dr. Jnig Reyes Other Provider Dr. Efrain Quevedo Other Provider Dr. Frederick Dick Other Provider Dr. Claudine Durán Referring Provider Dr. Geno Rush Other Provider Dr. Adarsh Prakash Other Provider Dr. Alcides Abel Attending Provider Dr. Alcides Abel Other Provider Dr. London Sandra Other Provider Dr. Chris Royal Other Provider Unavailable Dr. Leobardo Calloway Other Provider Dr. Jorgito Agarwal Other Provider Sharon LABEL CUTTER, LABEL CUTTER-C Rosalina Other Provider Dr. Edinson Irvin Chi Referring Provider Claudine Durán MD Primary Care Provider Juarez LABEL CUTTER, LABEL CUTTER-C Fadia Attending Provider Dr. Zaynab Pina Attending Provider CLAUDINE DURÁN Primary Care Unavailable WILLIAM MESSINA Attending Unavailab david Ramos RN, Lulú Coyne Unavailable [phone] CLAUDINE DURÁN Primary Care Unavailable MICHAEL LUJAN Admitting Unavailable SHARAN RIVAS Attending Unavailable GENO CAMACHO Consulting Unavailable Swanson LEATHER CARTRIDGE BELT MAKER.SALES INCENTIVE ANALYST, Jimbo Unavailable Mason LEATHER CARTRIDGE BELT MAKER.SUSTAINABILITY CONSULTANT, Twyla Unavailable Tito MC, Bartolome Unavailable Christophe MC, Juvencio Unavailable Eli RN, Pili Unavailable Unavailable Mason LEATHER CARTRIDGE BELT MAKER.SUSTAINABILITY CONSULTANT, Twyla Jannet Unavailable Mason LEATHER CARTRIDGE BELT MAKER.SUSTAINABILITY CONSULTANT, Twyla Unavailable Eli RN, Pili Unavailable Unavailable Mason LEATHER CARTRIDGE BELT MAKER.SUSTAINABILITY CONSULTANT, Twyla Unavailable Mason LEATHER CARTRIDGE BELT MAKER.SUSTAINABILITY CONSULTANT, Twyla Unavailable Dr. Claudine Durán MD Primary Care Provider JUVENCIO SAEED Attending Provider [phone] JUVENCIO SAEED Referring Provider Dr. Claudine Durán MD Referring Provider Dr. Diaz Puckett MD Attending Provider Swanson LEATHER CARTRIDGE BELT MAKER.SALES INCENTIVE ANALYST, Jimbo Unavailable Loida MC, Dr. Velasquez Emergency Provider Harsh MC, Dr. Zimmerman Admit Provider Harsh MC, Dr. Zimmerman Attending Provider Vasiliy MC, Dr. Sumner Other Provider MICHAEL BEAVERS Attending Unavailable TALAMPAS, CLAUDINE D [...] lable TALAMPAS, CLAUDINE D Primary Care Unavailable BARTOLOME FRANCIS Attending Unavailable TRENT-PALSHOOK, MONICA Referring Unavai lable TALAMPAS, [...] lable TALAMPAS, CLAUDINE D Primary Care Unavailable BIBI ALEGRIA Referring Unavailable TALAMPAS, CLAUDINE D Primary Care Unavailable TALAMPAS, CLAUDINE D Primary Care Unavailable TALAMPAS, CLAUDINE D Attending Unavailable SELF Referring Unavailable TALAMPAS, CLAUDINE D Primary Care Unavailable SELF Referring Unavailable TALAMPAS, CLAUDINE D Primary Care Unavailable SWANSON, JIMBO Referring Unavailable TALAMPAS, CLAUDINE D Primary Care Unavailable TALAMPAS, CLAUDINE D Primary Care Unavailable SWANSON, JIMBO Attending Unavailable TALAMPAS, CLAUDINE D Primary Care Unavailable TALAMPAS, CLAUDINE D Primary Care Unavailable TALAMPAS, CLAUDINE D Primary Care Unavailable WILLIAM MESSINA Referring Unavailab le TALAMPAS, CLAUDINE D Primary Care Unavailable TALAMPAS, CLAUDINE D Primary Care Unavailable TRENT-PALSHOOK, MONICA Referring Unavai lable TALAMPAS, CLAUDINE D Primary Care Unavailable TALAMPAS, CLAUDINE D Primary Care Unavailable TALAMPAS, CLAUDINE D Primary Care Unavailable ADALID CLARK Attending Unavailable NICOLAS GRIFFITH Referring Unavailable TALAMPAS, CLAUDINE D Primary Care Unavailable MICHAEL BEAVERS Admitting Unavailable MICHAEL BEAVERS Attending Unavailable TALAMPAS, CLAUDINE D Primary Care Unavailable TALAMPAS, CLAUDINE D Primary Care Unavailable TALAMPAS, CLAUDINE D Primary Care Unavailable TALAMPAS, CLAUDINE D Primary Care Unavailable RUBI, LEANDRA Rees Referring Unavailable TALAMPAS, CLAUDINE D Primary Care Unavailable GENO HART Referring Unavailable TALAMPAS, CLAUDINE D Primary Care Unavailable TALAMPAS, CLAUDINE D Primary Care Unavailable GENO HART Referring Unavailable TALAMPAS, CLAUDINE D Primary Care Unavailable TALAMPAS, CLAUDINE D Primary Care Unavailable JUVENCIO SAEED Attending Unavailable TALAMPAS, CLAUDINE D Primary Care Unavailable TRENT-PALSHOOK, MONICA Referring Unavai lable TALAMPAS, CLAUDINE D Primary Care Unavailable HELDLEANDRA Referring Unavailable TALAMPAS, CLAUDINE D Primary Care Unavailable [facility], LEANDRA Rees Referring Unavailable TALAMPAS, CLAUDINE D Primary Care Unavailable TALAMPAS, CLAUDINE D Primary Care Unavailable GENO HART Attending Unavailable GENO HART Referring Unavailable TALAMPAS, CLAUDINE D Primary Care Unavailable HELD, LEANDRA Rees Referring Unavailable TALAMPAS, CLAUDINE D Primary Care Unavailable [facility], LEANDRA Rees Referring Unavailable TALAMPAS, CLAUIDNE D Primary Care Unavailable TALAMPAS, CLAUDINE D Primary Care Unavailable NYAISA WICK Attending Unavailable TRENT-PALSHOOK, MONICA Referring Unavai lable TALAMPAS, CLAUDINE D Primary Care Unavailable TALAMPAS, CLAUDINE D Primary Care Unavailable BRISSA CHESTER Attending Unavailable TALAMPAS, CLAUDINE D Primary Care Unavailable SWANSONVINITAI Attending Unavailable SELF Referring Unavailable TALAMPAS, CLAUDINE [...] Unavailable TALAMPAS, CLAUDINE D Primary Care Unavailable LILI ROCHE Referring Unavailabl e TALAMPAS, CLAUDINE D Primary Care Unavailable LILI ROCHE Attending Unavailabl e JIMBO SWANSON Referring Unavailable TALAMPAS, CLAUDINE D Primary Care Unavailable TALAMPAS, CLAUDINE D Primary Care Unavailable TALAMPAS, CLAUDINE D Primary Care Unavailable GENO HART Referring Unavailable TALAMPAS, CLAUDINE D Primary Care Unavailable Harsh MC, Dr. Zimmerman Other Provider Dustin GAYLE, Dr. Rodriguez Attending Provider Dr. Erasmo House MD Attending Provider Dustin GAYLE, Dr. Rodriguez Other Provider Zaynab Pina MD Attending Provider Unavaila ble Talampas, Claudine D Primary Care Unavailable Oleghe OLS, Efewongbe Referring Unavailabl e Oleghe OLS, Efewongbe Attending Unavailabl e Talampas, Claudine D Primary Care Unavailable Erasmo House Admitting Unavailable Erasmo House Attending Unavailable Erasmo House Consulting Unavailable Burak Amanda Consulting Unavailable Jasmyn Chan Attending Unavailable Jasmyn Chan Consulting Unavailable Talampas, Claudine D Primary Care Unavailable Oleghe OLS, Efewongbe Attending Unavailabl e Oleghe OLS, Efewongbe Attending Unavailabl e Talampas, Claudine D Primary Care Unavailable Talampas, Claudine D Primary Care Unavailable Oleghe OLS, Efewongbe Attending Unavailabl e Talampas, Claudine D Primary Care Unavailable Oleghe OLS, Efewongbe Attending Unavailabl e Oleghe OLS, Efewongbe Attending Unavailabl e Talampas, Claudine D Primary Care Unavailable Talampas, Claudine D Primary Care Unavailable Oleghe OLS, Efewongbe Attending Unavailabl e Oleghe OLS, Efewongbe Referring Unavailabl e DALI BROWN Attending Unavailable MIYASAKA, DALI Referring Unavailable Talampas, Claudine D Primary Care Unavailable Talampas, Claudine D Referring Unavailable Diaz Puckett Attending Unavailable Talampas, Claudine D Primary Care Unavailable MIYASAKA, DALI Attending Unavailable MIYASAKA, DALI Referring Unavailable Talampas, Claudine D Primary Care Unavailable DALI BROWN Attending Unavailable FAMILIAASAKA, DALI Referring Unavailable Talampas, Claudine D Primary Care Unavailable Talampas, Claudine D Primary Care Unavailable MIYASAKA, DALI Referring Unavailable MIYASAKA, DALI Attending Unavailable MIYASAKA, DALI Attending Unavailable MIYASAKA, DALI Referring Unavailable Talampas, Claudine D Primary Care Unavailable Burak Amanda Consulting Unavailable Talampas, Claudine D Primary Care Unavailable Harsh Erasmo Admitting Unavailable Jasmyn Chan Attending Unavailable [facility] Consulting Unavailable Mathew Orellana Attending Unavailable Talampas, Claudine D Primary Care Unavailable MIYASAKA, DALI Attending Unavailable MIYASAKA, DALI Referring Unavailable Talampas, Claudine D Primary Care Unavailable Talampas, Claudine D Primary Care Unavailable Zaynab Wick Attending Unavailabl e Joselyne TAMANNA Efewongbe Attending Unavailabl e Talampas, Claudine D Primary Care Unavailable Talampas, Claudine D Primary Care Unavailable Dana Wickbe Attending Unavailabl e Allergies Allergy Classification Reported Allergen(s) Allergy Type Date of Onset Reaction(s) Facility Penicillins (antibiotic) (5 sources) Penicillins Drug Allergy 5 [facility] (20 sources) Penicillins; Translations: [PENICILLINS] Propensity to adverse reactions (disorder) 5 [facility] Repository Medications Current Medications Medication [...] 7 days. 7 tablet 10/11/2023 10/18/2023 Active [id number] actuat albuterol 0.09 mg/actuat metered dose inhaler (20 sources) beta2-Adrenergic Agonist Start: 06-13-2024 Albut rob Sulfate 90 mcg/actuation HFA aerosol inhaler Active 2 NMA INHALATION EVERY 4 HOURS NEEDED as needed for shortness of breath or wheezing June 13, 2024 12:00am Start: 04-05-2023 End: [...] (20 sources) Vitamin C Start: 03-19-2023 Vitamins A,C,J-Hczy-Geyxoi (Preservision Areds) 2,148 mcg-113 mg-45 mg-17.4mg tablet Active 2 {tbl} PO TWICE A DAY March 19, 2023 1:00am eye health administer with AM and PM meals Start: 03-19-2023 Start: 03-13-2022 take 2 tablets by mo uth once daily at breakfast vit A,C,E-Gbci-Dhsvse (OCUVITE PRESERVISION) 2,148 mcg-113 mg-45 mg-17.4mg tab Take 2 tablets by mouth daily with breakfast. 03/13/2022 Active Comment on above: Take 2 tablets by mo uth daily with breakfast. cholecalciferol 0.025 mg oral [...] maintenance Start: 01-24-2011 take 1 capsule by [facility] once daily Cholecalciferol, Vitamin D3, 1,000 unit ORAL Cap Take 1 capsule by mouth once daily. 1 capsule 0 01/24/2011 Active Comment on above: Take 1 capsule by [facility] once daily. clindamycin 300 mg oral capsule (7 sources) Lincosamide Antibacterial Start: 06-21-19 take 2 [...] above: Take 1 tablet by slime twice daily for 10 days. Take 1 tablet by [facility] two times a day for 10 days. ferrous sulfate 325 mg oral tablet (5 sources) Start: take 1 tablet by mouth [...] End: 04-27-2023 Fluticasone Propionate 50 mc g/actuation [place],Suspension Discontinued 1 NMA NASAL DAILY 0 0 [...] (FLONASE) 50 mcg/actuation nasal spray Use 1 [place] in each nostril once daily. 3 Each 3 07/20/2022 06/20/2024 Discontinued Comment on above: Use 1 [place] in each nostril once daily. Fluticasone Propion-Salmeterol [...] 3 Each 3 06/05/2023 Active folic acid 1 mg oral tablet (20 sources) Start: 08-23-2024 take 1 tablet by mouth once daily Folic Acid 1 mg tablet Active 1 mg PO DAILY August 23, 2024 12:00am Start: 06-13-2024 take 1 capsule by [facility] once daily Folic Acid 0.8 mg capsule [...] 300 mg PO EVERY 12 HOURS 0 April 05, 2023 1:00am nerve pain Start: 11-09-2020 End: 07-08-2025 take 1 capsule by mouth twice daily Gabapentin 300 mg Capsule Active 300 mg PO TWICE A DAY 0 August 27, 2024 12:00am Comment on above: Take 1 capsule by mo [facility] twice daily. Take 1 capsule by mo [facility] two times a day. iv contrast (will [...] PO EVERY WEEK March 19, 2023 1:00am February 10th, 2024 9:22pm On Hold: Resume on 04/24/23. HOLD [...] Start: 07-26-2013 take 2 tablets by mo [facility] once in the evening methotrexate 2.5 mg [...] succinate 25 mg extended release oral tablet (11 sources) beta-Adrenergic Pietro Start: 07-18-2024 take 1 tablet by mouth once daily Metoprolol Succinate 25 mg tablet extended release 24 hr Active 25 mg PO daily 18 01July 18, 2024 12:00am take 25 mg by mouth once daily M ETOPROLOL SUCCINATE ORAL Take 25 mg by mouth once daily. Active Multivitamin (Daily Multi-Vitamin) tablet (15 sources) Start: 03-19-2023 Multivitamin ( Daily Multi-Vitamin) [...] affected area twice daily for 10 days. omega-3 fatty acids/vitamin e(FISH OIL 1,000 MG [...] NaCl (PF) 0.9% 10 mL injection (DEFINITY) sulfaSALAzine 500 mg delayed release oral tablet [...] 2.5 ug by inhalation once daily Tiotropium [place] (Spiriva Respimat) 2.5 mcg/actuation mist Active 2 [...] ug by inhalation every twenty-four hours Tiotropium [place] (Spiriva Respimat) 2.5 mcg/actuation mist Discontinued 2 NMA INHALATION Q24H March 19, 2023 1:00am April 27, 2023 2:17pm Start: 03-19-2023 End: 04-27-2023 Start: 03-19-2023 End: 04-27-2023 take 1 puff(s) by inhalation every twenty-four hours Tiotropium [place] (Spiriva Respimat) 2.5 mcg/actuation mist Discontinued 2 [...] Inhale two puffs once daily. warfarin sodium 6 mg oral tablet (20 sources) Vitamin K Antagonist Start: 08-27-2024 take 1 tablet by mouth at dinner Warfarin (Febtoven) 6 mg Tablet Active 6 mg PO WITH DINNER 0 0 August 27, 2024 12:00am Start: 08-23-2024 take 5 tablets by mo [facility] once daily, then take 6 mg by mouth every other day Warfarin 1 mg tablet Active 5 mg PO DAILY August 23, 2024 12:00am 5 mg and ., 6 mg every other day Start: 08-23-2024 Warfarin 5 mg tablet Active 0 .ROUTE .COMPLEX August 23, 2024 12:00am 6mg orally Sun/Sun/Sun/Sun/sat, 5 mg orally / Start: 12-13-2023 End: 05-20-2024 warfarin (COUMADIN) 1 mg tab let Take 6 mg and Sunday and5 mg all other days or as directed. 30 tablet 6 05/20/2024 Active Start: 08-13-2023 End: 08-18-2023 Warfarin (Jantoven) 7.5 mg t ablet Discontinued 7.5 mg PO TH August 13, 2023 12:00am August 18, 2023 12:55pm Start: 04-27-2023 End: 08-13-2023 take 1 tablet by mouth at dinner Warfarin () 1 mg Tablet Discontinued 1 mg PO WITH DINNER 0 0 April 27, 2023 1:00am August 13, 2023 10:50am Start: 04-27-2023 Start: 04-27-2023 End: 08-13-2023 take 1 tablet by mouth at dinner Warfarin () 6 mg Tablet Discontinued 6 mg PO WITH DINNER 0 0 April 27, 2023 1:00am August 13, 2023 10:50am Start: 04-27-2023 Start: 11-21-2022 End: 08-23-2024 Warfarin 5 mg tablet Discont inued 0 .ROUTE .COMPLEX 30 0 August 18, 2023 12:56pm August 23, 2024 10:40am On Hold: ON HOLD FOR COLONOSCOPY 5 mg orally Sun/Sun/Sun//Fri, 2.5 mg orally Tues/Sun Start: 07-11-2022 End: 07-10-2023 warfarin (COUMADIN) 5 mg tab let Indications: Chronic anticoagulation Take 7.5 mg Tu, Anabel,Fri, Sat, Sun; [...] / ipratropium bromide 0.167 mg/ml inhalation solution (20 sources) Anticholinergic, beta2-Adrenergic Agonist Start: End: take [...] aspirin 81 mg delayed release oral tablet (20 sources) Platelet Aggregation Inhibitor, Nonsteroidal Anti-inflammatory Drug [...] 07/22/2024 Discontinued budesonide 0.25 mg/ml inhalation suspension (20 sources) Corticosteroid Start: 04-05-2023 End: 08-13-2023 take 0.5 mg by inhalation every twelve hours Budesonide 0.5 mg/2 mL Suspension For Nebulization Discontinued 0.5 mg INHALATION EVERY 12 HOURS 0 0 April 05, 2023 1:00am August 13, 2023 10:46am breathing Budesonide-Formo terol (20 sources) Corticosteroid, beta2-Adrenergic Agonist Start: 03-19-2023 End: 04-27-2023 Budesonide-Formot rob (Symbicort) 160-4.5 mcg/actuation HFA aerosol inhaler Discontinued 2 NMA INHALATION Q1March 19, 2023 1:00am April 27, 2023 2:17pm Start: 03-19-2023 End: 04-27-2023 Start: 03-19-2023 End: 04-27-2023 take 1 puff(s) by inhalation every twelve hours Budesonide-Formoterol (Symbicort) 160-4.5 mcg/actuation HFA aerosol inhaler Discontinued 2 PUFF INHALATION March 19, 2023 1:00am April 27, 2023 2:17pm Start: 03-19-2023 take 1 puff(s) by in halation every twelve hours Budesonide-Formoterol (Symbicort) 160-4.5 mcg/actuation HFA aerosol inhaler Active 2 PUFF INHALATION March 19, 2023 12:00am Start: 03-19-2023 take 1 puff(s) by in halation every twelve hours Budesonide-Formoterol [Budesonide-Formoterol Hfa 160 Mcg-4.5 Mcg/Actuation Aerosol Inhaler] (Budesonide-Formoterol Hfa 160 Mcg-4.5 Mcg/Actuation ) 160-4.5 mcg/actuation HFA aerosol inhaler Active 2 PUFF INHALATION March 19, 2023 12:00am Start: 01-24-2023 End: 06-05-2023 [...] Take 1 tablet by slime th every 12 hours at 6 am and 6 pm for 3 doses. citalopram 10 mg oral tablet (19 sources) Serotonin Reuptake Inhibitor Start: End: take 1 tablet by mouth once daily Citalopram 10 mg Tablet Discontinued 10 mg PO DAILY 0 0 April 27, 2023 1:00am August [...] mg/ml / guaiFENesin 20 mg/ml oral solution (19 sources) Uncompetitive X-ejdbtx-W-aspartate Receptor Antagonist, Sigma-1 Agonist Start: End: take 1 mL by mouth every six hours as needed for cough Dextromethorphan-Gua ifenesin 10-100 mg/5 mL Syrup Discontinued 10 mL PO EVERY 6 HOURS NEEDED as needed for COUGH 0 0 April 27, 2023 1:00am August 13, 2023 10:48am Start: 04-27-2023 Start: 04-27-2023 take 1 mL by mouth e very six hours as needed Dextromethorphan-Guaifenesin Active 10 ML PO EVERY 6 HOURS NEEDED 0 April 27, 2023 1:00am docusate sodium 50 mg / sennosides, skilled nursing 8.6 mg oral tablet (20 sources) Start: 04-05-2023 End: 04-27-2023 Sennosides-Docusate Sodium ( Stool Softener-Stimulant Laxat) 8.6-50 mg Tablet Discontinued 2 {tbl} PO TWICE DAILY NEEDED as needed for Constipation 0 0 April 05, 2023 1:00am April [...] on above: Take 1 tablet by slime once daily. itraconazole 10 mg/ml oral solution [...] on above: Take 2 capsules by m out as directed. Take 200 mg (2 capsules) [...] Comment on above: Take 1 capsule by mo [facility] three times a day as needed for diarrhea for up to 7 days. Menthol / Zinc Oxide (9 sources) Start: 04-27-2023 End: 08-13-2023 Menthol-Zinc Oxide [...] above: Take 1 tablet by slime twice daily as needed. Take with food [place] 2-Hdw-Wgg-Fish Oil (Fish Oil) 1,200 (144-216) mg capsule (6 sources) Start: 10-01-2023 End: 08-27-2024 [place] 9-Vqw-Yjf-Fish Oil (Fish Oil) 1,200 (144-216) mg capsule Discontinued 1 NMA PO DAILY October 01, 2023 12:00am August 27, 2024 12:00pm Start: 10-01-2023 [place] 3-Dha-Ep a-Fish Oil (Fish Oil) 1,200 (144-216) mg capsule Active 1 NMA PO DAILY October 01, 2023 12:00am oxyCODONE hydrochloride 5 mg oral tablet (20 sources) Opioid Agonist Start: 08-27-2024 End: 09-16-2024 take 2.5-5 mg by mouth every four hours as needed for pain Oxycodone 5 mg Tablet Discontinued 2.5 - 5 mg PO EVERY 4 HOURS NEEDED as needed for Pain Score 4-10 6 2 0 August 27, 2024 August 27, 2024 4:27pm Closed fracture of distal end of left radius Start: 08-27-2024 End: 09-16-2024 take 2.5 mg by mouth every four hours as needed for pain Oxycodone 5 mg tablet Discontinued 2.5 mg PO EVERY 4 HOURS NEEDED as needed for Pain Score 4-10 30 20 0 August 27, 2024 September 15, 2024 12:00am September 16, 2024 12:07am Closed fracture of distal end of left radius Start: 04-05-2023 End: 04-27-2023 take 1 tablet by mouth every four hours as needed for pain Oxycodone 5 mg Tablet Discontinued 5 mg PO EVERY 4 HOURS NEEDED as needed for Pain Score 4-10 6 2 0 April 05, 2023 April 27, 2023 2:19pm Rheumatoid arthritis Rheumatoid arthritis, unspecified pantoprazole 40 mg delayed release oral tablet (20 sources) Proton Pump Inhibitor Start: 08-18-2023 End: 06-20-2024 take 1 tablet by mouth twice daily [...] Comment on above: Take 1 tablet by [facility] once daily. microencapsulated potassium chloride 20 meq extended release oral tablet (20 sources) Start: End: Potassium Chloride (Klor-Con M20) 20 mEq tablet,ER particles/crystals Discontinued 20 meq PO TWICE A DAY March 19, 2023 1:00am April 05, 2023 12:27pm Comment on above: Take 1 tablet by [facility] twice daily. predniSONE 20 mg oral tablet (20 sources) Start: End: take 1 tablet by mouth [...] 9 mg/ml prefilled syringe (20 sources) Start: 02-22-19 End: 11-26-19 sodium chloride 0.9 % (flush) 10 mL (BD POSIFLUSH) spironolactone 25 mg oral tablet (20 sources) Aldosterone Antagonist Start: 07 End: 08-24-19 take 1 tablet by mouth once daily Spironolactone 25 mg tablet Discontinued 25 mg PO DAILY June 13, 2024 12:00am August 23, 2024 10:38am sucralfate 1000 mg oral tablet (6 sources) Aluminum Complex Start: 08-18-19 End: 10-01-19 take 1 tablet by mouth twice daily before mealtime Sucralfate 1 gram Tablet Discontinued 1 g PO TWICE DAILY BEFORE MEALS 60 30 0 August 18, 2023 12:00am October 01, 2023 9:20am Vitamin A-Vitamin C-Vit E-Min (Ocutabs) tablet (14 sources) Start: 03-26-19 End: 04-27-19 Vitamin A-Vitamin C-Vit E-Min (Ocutabs) tablet Discontinued [...] Start: 03-26-2023 take 2 tablets by mo [facility] once daily Vitamin A-Vitamin C-Vit E-Min (Ocutabs) tablet Active 2 TABLET PO DAILY March 26, 2023 12:00am Problems Active Problems Problem Classification Problem Date Documented Da te Episodic/Chronic Acquired foot deformities (5 sources) Hammer toe; Translations: [Other hammer toe(s) (acquired), left foot] Chronic Acute cerebrovascular disease (3 sources) Subdural hemorrhage; Translations: [Subdural hemorrhage] Onset: 5 Chronic Acute posthemorrhagic anemia (6 sources) Acute posthemorrhagic anemia; Translations: [Acute posthemorrhagic [...] secondary to blood loss (chronic)] 10-11-2023 Chronic Deficiency and other anemia (20 sources) Anemia; Translations: [Anemia, unspecified] Onset: 9 Resolved: 9 04-01-2023 Episodic Deficiency and other anemia (20 sources) Anemia, unspecified; Translations: [Anemia, unspecified] 04-05-2023 Episodic Diseases of white blood cells (1 source) Leukocytosis; Translations: [Elevated white blood cell count, unspecified] 04-01-2023 Chronic Disorders of lipid metabolism (1 source) Raised low density lipoprotein cholesterol; Translations: [Pure hypercholesterolemia, unspecified] Chronic E Codes: Fall (3 sources) Fall on same level from slipping, tripping or stumbling ; Translations: [Fall on same level from slipping, tripping and stumbling without subsequent striking against object, initial encounter] 08-23-2024 Episodic Esophageal disorders (20 sources) Gastroesophageal reflux disease; Translations: [Gastro-esophageal reflux disease without esophagitis] Onset: 6 03-06-2005 Chronic Essential hypertension (20 sources) Essential hypertension; Translations: [Essential (primary) hypertension] Onset: 1 Resolved: 6 03-07-2015 Chronic Fracture of upper limb (7 sources) Closed fracture of distal end of radius; Translations: [Unspecified fracture of the lower end of left radius, initial encounter for closed fracture] Onset: 5 08-23-2024 Episodic Gastritis and duodenitis (20 sources) Duodenitis; Translations: [Duodenitis without bleeding] 04-05-2023 Episodic Gastroduodenal ulcer (except hemorrhage) (20 sources) Gastric ulcer; Translations: [Gastric ulcer, unspecified as acute or chronic, without hemorrhage or perforation] 04-05-2023 Chronic Gastrointestinal hemorrhage (1 source) Gastric ulcer with hemorrhage; Translations: [Chronic or unspecified gastric ulcer with hemorrhage] 07-17-2023 Chronic Gastrointestinal hemorrhage (8 sources) Gastrointestinal hemorrhage; Translations: [Gastrointestinal hemorrhage, unspecified] [...] and fatigue (20 sources) Asthenia; Translations: [Weakness] Onset: 5 03-26-2023 Episodic Menopausal disorders (20 sources) Atrophic vaginitis; Translations: [Postmenopausal atrophic vaginitis] Onset: 4 03-06-2013 Chronic Mycoses (20 sources) Histoplasmosis; Translations: [Histoplasmosis, unspecified] Onset: 9 03-03-2018 Episodic Noninfectious gastroenteritis (20 sources) Colitis; Translations: [Noninfective gastroenteritis and colitis, unspecified] 03-19-2023 Episodic Osteoporosis (1 source) Senile osteoporosis; 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 without current pathological fracture] 11-09-2022 Chronic Other aftercare (20 sources) Long-term current use of anticoagulant; Translations: [FPC (current) use of 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] Onset: 0 12-10-2014 Episodic Other aftercare (1 source) Long-term current use of drug therapy; Translations: [Other chcf (current) drug therapy] 08-22-2023 Episodic Other aftercare (2 sources) Long-term current use of antibiotic; Translations: [parts counterman (current) use of antibiotics] 12-18-2023 Episodic Other [...] diseases; Translations: [History of COVID-19] Episodic Other injuries and conditions due to external causes (6 sources) Closed injury of head; Translations: [Unspecified injury of head, initial encounter] 08-23-2024 Episodic Other injuries and conditions due to external causes (1 source) Unspecified injury of head, initial encounter; Translations: [Unspecified injury of head, initial encounter] Onset: Episodic Other injuries and conditions due to external causes (1 source) Other specified injuries of left wrist, hand and finger(s), initial encounter; Translations: [Other specified injuries of left wrist, hand and finger(s), initial encounter] Onset: Episodic Other liver diseases (1 source) Alkaline [...] Chronic Other nutritional; endocrine; and metabolic disorders (20 sources) Adult failure to thrive syndrome; Translations: [Adult failure to thrive] 03-31-2023 Episodic Other nutritional; endocrine; and metabolic disorders (2 sources) Adult failure to thrive; Translations: [Adult failure to thrive] 03-31-2023 Episodic Other nutritional; endocrine; and metabolic disorders (6 sources) Failure to thrive 05-08-2023 Episodic Other screening for suspected conditions (not mental disorders or infectious disease) (20 sources) Patient encounter status; Translations: [Encounter for screening mammogram for malignant neoplasm of breast] Onset: 4 Episodic Other skin disorders (1 source) Dystrophia [...] (1 source) Pain, unspecified; Translations: [Pain] Onset: 5 Episodic Retinal detachments; defects; vascular occlusion; and [...] right ankle, initial encounter] Onset: 5 Episodic Superficial injury; contusion (3 sources) Abrasion of face; Translations: [Abrasion of other part of head, initial encounter] 08-23-2024 Episodic Unclassified (20 sources) High Risk Chronic Disease Home Monitoring Problem Onset: 3 07-05-2022 Unclassified (2 sources) in one week-call to schedule appointment Viral infection (20 sources) Verruca vulgaris; Translations: [...] of skin] Onset: 3 Resolved: 5 Chronic Heart valve disorders (20 sources) Heart murmur; Translations: [Cardiac murmur, unspecified] Onset: 9 Resolved: 9 08-05-2018 Episodic Other acquired deformities (20 sources) Lumbar spondylolisthesis; Translations: [Spondylolisthesis, lumbar region] Onset: 8 07-30-2017 Episodic Other aftercare (1 source) FPC (current) use of 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; Translations: [parts counterman current use of anticoagulant therapy] Onset: 5 Episodic Other aftercare (1 source) FPC (current) use of antibiotics; Translations: [Encounter for long-term (current) use of antibiotics] Onset: 4 Episodic Other aftercare (1 source) Encounter for therapeutic drug level monitoring; Translations: [Encounter for therapeutic drug monitoring] Onset: 4 Episodic Other aftercare (1 source) Other chcf (current) drug therapy; Translations: [Encounter for long-term current use of medication] Onset: 4 Episodic Other connective tissue disease [...] Onset: 7 Resolved: 9 03-02-2018 Episodic Other upper respiratory disease (20 sources) [...] to thrive; Translations: [Failure to thrive] 04-05-2023 Results Test Name Value Interpretation Reference Range Facility Absolute lymphocyte countOrd ered By: Zaynab Pina on 09-18-2024 Lymphocytes Auto (Unsp spec) [#/Vol] 1.05 10*3/uL 0.83-4.51 [facility] Absolute neutrophil countOrd ered By: Zaynab Pina on 09-18-2024 Neutrophils (Bld) [#/Vol] 3.8 10*3/uL 2.0-7.7 [facility] Anion gap in Serum or Plasma Ordered By: Zaynab Pina on 09-18-2024 Anion gap [Moles/Vol] 13 mmol/L 5-15 [facility] Automated lymphocyte count a s percentage of total leukocytesOrdered By: Zaynab Pina on 09-18-2024 Lymphocytes/100 WBC Auto (Unsp spec) 18.2 % Low 19-41 [facility] BUN/creatinine ratioOrdered By: Zaynab Pina on 09-18-2024 Urea nitrogen/Creatinine [Mass ratio] 24.9 mg/mg High 10-20 [facility] Basophil percentageOrdered B y: Zaynab Pina on 09-18-2024 Basophils/100 WBC (Bld) 0.7 % 0-1 [facility] Carbon dioxide, total [Moles /volume] in Central venous bloodOrdered By: Zaynab Pina on 09-18-2024 CO2 [Moles/Vol] 20.4 mmol/L Low 21.0-32.0 [facility] Chloride assayOrdered By: Christine Pina on 09-18-2024 Chloride [Moles/Vol] 102 mmol/L 98-108 [facility] Eosinophil percentageOrdered By: Zaynab Pina 09-18-2024 Eosinophils/100 WBC (Bld) 2.6 % 0-5 [facility] Erythrocyte distribution wid th ratioOrdered By: Zaynab Pina on 09-18-2024 Erythrocyte distribution width (RBC) [Ratio] 14.8 % High 11.6-14.6 [facility] Erythrocyte distribution wid th standard deviationOrdered By: Zaynab Pina 09-18-2024 Erythrocyte distribution width (RBC) [Ratio] 53.0 fl High 35.1-43.9 [facility] Glomerular filtration rate ( GFR) estimation/1.73 sq m using serum, plasma, or whole bOrdered By: Zaynab Pina 09-18-2024 GFR/1.73 sq M.predicted among non-blacks MDRD (S/P/Bld) [Vol rate/Area] 91 mL/min/{1.73_m2} >60 [facility] Comment on above: mL/min/1.73m2 CKD-EP I Creatinine Equation (2020) Hematocrit Auto (Bld) [Volum e fraction]Ordered By: Zaynab Pina 09-18-2024 Hematocrit (Bld) [Volume fraction] 34.0 % Low 37-47 [facility] Hemoglobin measurementOrdere d By: Zaynab Pina on 09-18-2024 Hemoglobin (Bld) [Mass/Vol] 11.4 g/dL Low 12.0-15.0 [facility] Immature granulocytes/100 WB C Auto (Bld)Ordered By: Zaynab Pian 09-18-2024 Immature granulocytes/100 WBC (Bld) 0.700 % 0.0-0.9 [facility] Comment on above: IG% - Immature Granu locytes (promyelocytes, myelocytes and metamyelocytes) > 1% indicates that a LEFT SHIFT is Present. International normalized rat io (INR) calculationOrdered By: Zaynab Pina on 09-18-2024 INR Coag (Bld) [Relative time] 3.0 {INR} [facility] MCV (mean corpuscular volume ) determinationOrdered By: Christineelmertanjoesph Cherrynatiloly on 09-18-2024 MCV (RBC) [Entitic vol] 97.4 fL 81-99 [facility] Mean corpuscular hemoglobin (MCH) determinationOrdered By: Christineelmertanjoesph Cherrynatiloly on 09-18-2024 MCH (RBC) [Entitic mass] 32.7 pg High 27.0-32.0 [facility] Mean corpuscular hemoglobin concentration (MCHC) determinationOrdered By: Zaynab Cherrynatiloly on 09-18-2024 MCHC (RBC) [Mass/Vol] 33.5 g/dL 32-36 [facility] Mean platelet volume determi nationOrdered By: Claudioshala Dilipnatiloly on 09-18-2024 Platelet mean volume (Bld) [Entitic vol] 10.9 fL 6.2-12.0 [facility] Monocyte percentageOrdered B y: Christineelmertanjoesph Cherrynatiloly on 09-18-2024 Monocytes/100 WBC (Bld) 11.4 % High 0-10 [facility] Neutrophil percentageOrdered By: Christineelmershala Dilipnatiloly on 09-18-2024 Neutrophils/100 WBC (Bld) 66.4 % 47-70 [facility] Nucleated red blood cell per centageOrdered By: Christineelmershala Dilipnatiloly on 09-18-2024 Nucleated RBC/100 WBC (Bld) [Ratio] 0 % 0-5 [facility] Platelet countOrdered By: Christine amilcar Dilipnatiloly on 09-18-2024 Platelets (Bld) [#/Vol] 179 10*3/uL 150-450 [facility] Potassium measurement (mass/ volume)Ordered By: Christineelmertanjoesph Cherrynatiloly on 09-18-2024 Potassium (Unsp spec) [Mass/Vol] 3.9 mmol/L 3.3-5.1 [facility] Prothrombin timeOrdered By: Claudiotanjoesph Cherrynatiloly on 09-18-2024 PT Coag (PPP) [Time] 31.5 s High 11.7-14.9 [facility] RBC Auto (Bld) [#/Vol]Ordere d By: Danajoesph Cherrynatiloly on 09-18-2024 RBC (Bld) [#/Vol] 3.49 10*6/uL Low 4.2-5.4 [facility] Serum creatinine measurement (mass/volume)Ordered By: Zaynab Cherrynatiloly on 09-18-2024 Creatinine [Mass/Vol] 0.63 mg/dL Low 0.70-1.20 [facility] Serum glucose measurement (m ass/volume)Ordered By: Zaynab Pina on 09-18-2024 Glucose [Mass/Vol] 82 mg/dL 70-[address] [facility] Serum or plasma calcium monica urement (mass/volume)Ordered By: Zaynab Pina on 09-18-2024 Calcium [Mass/Vol] 9.0 mg/dL 7.6-11.[address] [facility] Serum or plasma urea nitroge n measurement (mass/volume)Ordered By: Zaynab Pina on 09-18-2024 Urea nitrogen [Mass/Vol] 16 mg/dL 4-19 [facility] Sodium levelOrdered By: Christineelmer shala Dilipnatiloly on 09-18-2024 Sodium [Moles/Vol] 135 mmol/L 133-[address] [facility] White blood cell (WBC) count Ordered By: Zaynab Pina on 09-18-2024 WBC (Bld) [#/Vol] 5.8 10*3/uL 4.4-11.[address] [facility] International normalized rat io (INR) calculationOrdered By: Zaynab Pina on 09-15-2024 INR Coag (Bld) [Relative time] 1.8 {INR} [facility] Prothrombin timeOrdered By: Zaynab Pina on 09-15-2024 PT Coag (PPP) [Time] 21.3 s High 11.7-14.9 [facility] Absolute lymphocyte countOrd ered By: Zaynab Pina on 09-11-2024 Lymphocytes Auto (Unsp spec) [#/Vol] 1.10 10*3/uL 0.83-4.51 [facility] Absolute neutrophil countOrd ered By: Zaynab Pina on 09-11-2024 Neutrophils (Bld) [#/Vol] 3.6 10*3/uL 2.0-7.7 [facility] Anion gap in Serum or Plasma Ordered By: Zaynab Pina on 09-11-2024 Anion gap [Moles/Vol] 12 mmol/L 5-15 [facility] Automated lymphocyte count a s percentage of total leukocytesOrdered By: Zaynab Pina on 09-11-2024 Lymphocytes/100 WBC Auto (Unsp spec) 19.9 % 19-41 [facility] BUN/creatinine ratioOrdered By: Zaynab Pina on 09-11-2024 Urea nitrogen/Creatinine [Mass ratio] 24.2 mg/mg High 10-20 [facility] Basophil percentageOrdered B y: Zaynab Pina on 09-11-2024 Basophils/100 WBC (Bld) 0.5 % 0-1 [facility] Carbon dioxide, total [Moles /volume] in Central venous bloodOrdered By: Zaynab Pina on 09-11-2024 CO2 [Moles/Vol] 21.7 mmol/L 21.0-32.0 [facility] Chloride assayOrdered By: Christine Pina on 09-11-2024 Chloride [Moles/Vol] 103 mmol/L 98-108 [facility] Eosinophil percentageOrdered By: Zaynab Pina on 09-11-2024 Eosinophils/100 WBC (Bld) 2.2 % 0-5 [facility] Erythrocyte distribution wid th ratioOrdered By: Zaynab Pina on 09-11-2024 Erythrocyte distribution width (RBC) [Ratio] 15.5 % High 11.6-14.6 [facility] Erythrocyte distribution wid th standard deviationOrdered By: Zaynab Pina on 09-11-2024 Erythrocyte distribution width (RBC) [Ratio] 55.0 fl High 35.1-43.9 [facility] Glomerular filtration rate ( GFR) estimation/1.73 sq m using serum, plasma, or whole bOrdered By: Zayanb Pina on 09-11-2024 GFR/1.73 sq M.predicted among non-blacks MDRD (S/P/Bld) [Vol rate/Area] 91 mL/min/{1.73_m2} >60 [facility] Comment on above: mL/min/1.73m2 CKD-EP I Creatinine Equation (2020) Hematocrit Auto (Bld) [Volum e fraction]Ordered By: Zaynab Pina on 09-11-2024 Hematocrit (Bld) [Volume fraction] 33.3 % Low 37-47 [facility] Hemoglobin measurementOrdere d By: Zaynab Pina on 09-11-2024 Hemoglobin (Bld) [Mass/Vol] 11.1 g/dL Low 12.0-15.0 [facility] Immature granulocytes/100 WB C Auto (Bld)Ordered By: Zaynab Pina on 09-11-2024 Immature granulocytes/100 WBC (Bld) 0.500 % 0.0-0.9 [facility] Comment on above: IG% - Immature Granu locytes (promyelocytes, myelocytes and metamyelocytes) > 1% indicates that a LEFT SHIFT is Present. International normalized rat io (INR) calculationOrdered By: Zaynab Pina on 09-11-2024 INR Coag (Bld) [Relative time] 2.1 {INR} [facility] MCV (mean corpuscular volume ) determinationOrdered By: Zaynab Pina on 09-11-2024 MCV (RBC) [Entitic vol] 96.5 fL 81-99 [facility] Mean corpuscular hemoglobin (MCH) determinationOrdered By: Zaynab iPna on 09-11-2024 MCH (RBC) [Entitic mass] 32.2 pg High 27.0-32.0 [facility] Mean corpuscular hemoglobin concentration (MCHC) determinationOrdered By: Zaynab Pina on 09-11-2024 MCHC (RBC) [Mass/Vol] 33.3 g/dL 32-36 [facility] Mean platelet volume determi nationOrdered By: Zaynab Pina on 09-11-2024 Platelet mean volume (Bld) [Entitic vol] 10.6 fL 6.2-12.0 [facility] Monocyte percentageOrdered B y: Zaynab Pina on 09-11-2024 Monocytes/100 WBC (Bld) 12.0 % High 0-10 [facility] Neutrophil percentageOrdered By: Zaynab Dilipnatiloly on 09-11-2024 Neutrophils/100 WBC (Bld) 64.9 % 47-70 [facility] Nucleated red blood cell per centageOrdered By: Zaynab Dilipjohnny on 09-11-2024 Nucleated RBC/100 WBC (Bld) [Ratio] 0 % 0-5 [facility] Platelet countOrdered By: Christine stevenjoesph Cherrynatiloly on 09-11-2024 Platelets (Bld) [#/Vol] 202 10*3/uL 150-450 [facility] Potassium measurement (mass/ volume)Ordered By: Zaynab Pina on 09-11-2024 Potassium (Unsp spec) [Mass/Vol] 3.8 mmol/L 3.3-5.1 [facility] Prothrombin timeOrdered By: Zaynab Pina on 09-11-2024 PT Coag (PPP) [Time] 23.8 s High 11.7-14.9 [facility] RBC Auto (Bld) [#/Vol]Ordere d By: Claudiotanjoesph Cherrynatiloly on 09-11-2024 RBC (Bld) [#/Vol] 3.45 10*6/uL Low 4.2-5.4 [facility] Serum creatinine measurement (mass/volume)Ordered By: Zaynab Pina on 09-11-2024 Creatinine [Mass/Vol] 0.65 mg/dL Low 0.70-1.20 [facility] Serum glucose measurement (m ass/volume)Ordered By: Zaynab Pina on 09-11-2024 Glucose [Mass/Vol] 80 mg/dL 70-[address] [facility] Serum or plasma calcium monica urement (mass/volume)Ordered By: Zaynab Pina on 09-11-2024 Calcium [Mass/Vol] 9.0 mg/dL 7.6-11.[address] [facility] Serum or plasma urea nitroge n measurement (mass/volume)Ordered By: Efamilcar Cherrynatiloly on 09-11-2024 Urea nitrogen [Mass/Vol] 16 mg/dL 4-19 [facility] Sodium levelOrdered By: Claudio Pina on 09-11-2024 Sodium [Moles/Vol] 137 mmol/L 133-[address] [facility] White blood cell (WBC) count Ordered By: Christineelmershala Pina on 09-11-2024 WBC (Bld) [#/Vol] 5.5 10*3/uL 4.4-11.[address] [facility] International normalized rat io (INR) measurement by fingerstickOrdered By: Christineelmertanjoesph Cherrynatiloly on 09-08-2024 INR Coag (BldC) [Relative time] 2.4 [facility] Comment on above: Critical Value > 4.0 Whole blood prothrombin time Ordered By: Christineelmertanjoesph Cherrynatiloly on 09-08-2024 PT Coag (Bld) [Time] 25.4 s High 11.7-14.9 [facility] Absolute lymphocyte countOrd ered By: Zaynab Pina on 09-04-2024 Lymphocytes Auto (Unsp spec) [#/Vol] 1.06 10*3/uL 0.83-4.51 [facility] Absolute neutrophil countOrd ered By: Zaynab Dilipnatiloly on 09-04-2024 Neutrophils (Bld) [#/Vol] 4.0 10*3/uL 2.0-7.7 [facility] Anion gap in Serum or Plasma Ordered By: Christineelmershala Pina on 09-04-2024 Anion gap [Moles/Vol] 13 mmol/L 5-15 [facility] Automated lymphocyte count a s percentage of total leukocytesOrdered By: Christineelmershala Dilipnatiloly on 09-04-2024 Lymphocytes/100 WBC Auto (Unsp spec) 18.2 % Low 19-41 [facility] BUN/creatinine ratioOrdered By: Christineelmershala Dilipnatiloly on 09-04-2024 Urea nitrogen/Creatinine [Mass ratio] 23.8 mg/mg High 10-20 [facility] Basophil percentageOrdered B y: Zaynab Dilipnatiloly on 09-04-2024 Basophils/100 WBC (Bld) 0.5 % 0-1 [facility] Carbon dioxide, total [Moles /volume] in Central venous bloodOrdered By: Zaynab Pina on 09-04-2024 CO2 [Moles/Vol] 21.1 mmol/L 21.0-32.0 [facility] Chloride assayOrdered By: Christine Pina on 09-04-2024 Chloride [Moles/Vol] 102 mmol/L 98-108 [facility] Eosinophil percentageOrdered By: Zaynab Pina on 09-04-2024 Eosinophils/100 WBC (Bld) 1.9 % 0-5 [facility] Erythrocyte distribution wid th ratioOrdered By: Zaynab Pina on 09-04-2024 Erythrocyte distribution width (RBC) [Ratio] 15.8 % High 11.6-14.6 [facility] Erythrocyte distribution wid th standard deviationOrdered By: elmeraurorajoesph Pina on 09-04-2024 Erythrocyte distribution width (RBC) [Ratio] 54.7 fl High 35.1-43.9 [facility] Glomerular filtration rate ( GFR) estimation/1.73 sq m using serum, plasma, or whole bOrdered By: Zaynab Pina on 09-04-2024 GFR/1.73 sq M.predicted among non-blacks MDRD (S/P/Bld) [Vol rate/Area] 91 mL/min/{1.73_m2} >60 [facility] Comment on above: mL/min/1.73m2 CKD-EP I Creatinine Equation (2020) Hematocrit Auto (Bld) [Volum e fraction]Ordered By: Zaynab Pina on 09-04-2024 Hematocrit (Bld) [Volume fraction] 32.5 % Low 37-47 [facility] Hemoglobin measurementOrdere d By: Zaynab Pina on 09-04-2024 Hemoglobin (Bld) [Mass/Vol] 11.0 g/dL Low 12.0-15.0 [facility] Immature granulocytes/100 WB C Auto (Bld)Ordered By: Zaynab Pina 09-04-2024 Immature granulocytes/100 WBC (Bld) 0.700 % 0.0-0.9 [facility] Comment on above: IG% - Immature Granu locytes (promyelocytes, myelocytes and metamyelocytes) > 1% indicates that a LEFT SHIFT is Present. International normalized rat io (INR) calculationOrdered By: Zaynab Pina on 09-04-2024 INR Coag (Bld) [Relative time] 2.5 {INR} [facility] MCV (mean corpuscular volume ) determinationOrdered By: Zaynab Pina on 09-04-2024 MCV (RBC) [Entitic vol] 94.2 fL 81-99 [facility] Mean corpuscular hemoglobin (MCH) determinationOrdered By: Claudioaurorajoesph Pina on 09-04-2024 MCH (RBC) [Entitic mass] 31.9 pg 27.0-32.0 [facility] Mean corpuscular hemoglobin concentration (MCHC) determinationOrdered By: Zaynab Pina on 09-04-2024 MCHC (RBC) [Mass/Vol] 33.8 g/dL 32-36 [facility] Mean platelet volume determi nationOrdered By: Zaynab Pina on 09-04-2024 Platelet mean volume (Bld) [Entitic vol] 10.8 fL 6.2-12.0 [facility] Monocyte percentageOrdered B y: Zaynab Pina on 09-04-2024 Monocytes/100 WBC (Bld) 11.0 % High 0-10 [facility] Neutrophil percentageOrdered By: elmeraurorajoesph iPna on 09-04-2024 Neutrophils/100 WBC (Bld) 67.7 % 47-70 [facility] Nucleated red blood cell per centageOrdered By: amilcar Pina on 09-04-2024 Nucleated RBC/100 WBC (Bld) [Ratio] 0 % 0-5 [facility] Platelet countOrdered By: Christine Pina on 09-04-2024 Platelets (Bld) [#/Vol] 224 10*3/uL 150-450 [facility] Potassium measurement (mass/ volume)Ordered By: Zaynab Pina on 09-04-2024 Potassium (Unsp spec) [Mass/Vol] 3.9 mmol/L 3.3-5.1 [facility] Prothrombin timeOrdered By: Zaynab Pina on 09-04-2024 PT Coag (PPP) [Time] 27.6 s High 11.7-14.9 [facility] RBC Auto (Bld) [#/Vol]Ordere d By: Zaynab Pina on 09-04-2024 RBC (Bld) [#/Vol] 3.45 10*6/uL Low 4.2-5.4 [facility] Serum creatinine measurement (mass/volume)Ordered By: Zaynab Pina on 09-04-2024 Creatinine [Mass/Vol] 0.63 mg/dL Low 0.70-1.20 [facility] Serum glucose measurement (m ass/volume)Ordered By: Zaynab Pina on 09-04-2024 Glucose [Mass/Vol] 78 mg/dL 70-[address] [facility] Serum or plasma calcium monica urement (mass/volume)Ordered By: Zaynab Pina on 09-04-2024 Calcium [Mass/Vol] 9.2 mg/dL 7.6-11.[address] [facility] Serum or plasma urea nitroge n measurement (mass/volume)Ordered By: Zaynab Pina on 09-04-2024 Urea nitrogen [Mass/Vol] 15 mg/dL 4-19 [facility] Sodium levelOrdered By: Claudio Pina on 09-04-2024 Sodium [Moles/Vol] 136 mmol/L 133-[address] [facility] White blood cell (WBC) count Ordered By: Zaynab Pina on 09-04-2024 WBC (Bld) [#/Vol] 5.8 10*3/uL 4.4-11.[address] [facility] International normalized rat io (INR) measurement by fingerstickOrdered By: Zaynab Pina on 09-01-2024 INR Coag (BldC) [Relative time] 2.7 [facility] Comment on above: Critical Value > 4.0 Whole blood prothrombin time Ordered By: Zaynab Pina on 09-01-2024 PT Coag (Bld) [Time] 28.1 s High 11.7-14.9 [facility] Prothrombin Time w/INRon INR Normal [facility] Comment on above: Result Comment: Canc elled via OM: Order cancelled - Patient discharged Performed By: #### L 300.3900 #### [facility] Laboratory [address] [place], [place], [id number] PROTIME Normal 11.7-14.9 [facility] Comment on above: Result Comment: Canc elled via OM: Order cancelled - Patient discharged Performed By: #### L 300.3900 #### [facility] Laboratory [address] [place], [place], [id number] Absolute lymphocyte countOrd ered By: Zaynab Pina on 08-28-2024 Lymphocytes Auto (Unsp spec) [#/Vol] 1.04 10*3/uL 0.83-4.51 [facility] Absolute neutrophil countOrd ered By: Zaynab Pina on 08-28-2024 Neutrophils (Bld) [#/Vol] 4.0 10*3/uL 2.0-7.7 [facility] Anion gap in Serum or Plasma Ordered By: Zaynab Pina on 08-28-2024 Anion gap [Moles/Vol] 10 mmol/L 5-15 [facility] Automated lymphocyte count a s percentage of total leukocytesOrdered By: Zaynab Pina on 08-28-2024 Lymphocytes/100 WBC Auto (Unsp spec) 17.6 % Low 19-41 [facility] BUN/creatinine ratioOrdered By: Zaynab Pina on 08-28-2024 Urea nitrogen/Creatinine [Mass ratio] 23.6 mg/mg High 10-20 [facility] Basophil percentageOrdered B y: Zaynab Pina on 08-28-2024 Basophils/100 WBC (Bld) 0.7 % 0-1 [facility] Bilirubin, totalOrdered By: Zaynab Pina on 08-28-2024 Bilirubin [Mass/Vol] 0.42 mg/dL 0.00-1.30 [facility] Carbon dioxide, total [Moles /volume] in Central venous bloodOrdered By: Zaynab Pina on 08-28-2024 CO2 [Moles/Vol] 23.7 mmol/L 21.0-32.0 [facility] Chloride assayOrdered By: Christine Pina on 08-28-2024 Chloride [Moles/Vol] 103 mmol/L 98-108 [facility] Eosinophil percentageOrdered By: Zaynab Pina on 08-28-2024 Eosinophils/100 WBC (Bld) 1.7 % 0-5 [facility] Erythrocyte distribution wid th ratioOrdered By: amilcar Pina on 08-28-2024 Erythrocyte distribution width (RBC) [Ratio] 16.8 % High 11.6-14.6 [facility] Erythrocyte distribution wid th standard deviationOrdered By: Zaynab Pina on 08-28-2024 Erythrocyte distribution width (RBC) [Ratio] 58.6 fl High 35.1-43.9 [facility] Glomerular filtration rate ( GFR) estimation/1.73 sq m using serum, plasma, or whole bOrdered By: Zaynab Pina on 08-28-2024 GFR/1.73 sq M.predicted among non-blacks MDRD (S/P/Bld) [Vol rate/Area] 90 mL/min/{1.73_m2} >60 [facility] Comment on above: mL/min/1.73m2 CKD-EP I Creatinine Equation (2020) Hematocrit Auto (Bld) [Volum e fraction]Ordered By: Zaynab Pina on 08-28-2024 Hematocrit (Bld) [Volume fraction] 33.3 % Low 37-47 [facility] Hemoglobin measurementOrdere d By: Zaynab Pina 08-28-2024 Hemoglobin (Bld) [Mass/Vol] 10.9 g/dL Low 12.0-15.0 [facility] Immature granulocytes/100 WB C Auto (Bld)Ordered By: Zaynab Pina on 08-28-2024 Immature granulocytes/100 WBC (Bld) 0.300 % 0.0-0.9 [facility] Comment on above: IG% - Immature Granu locytes (promyelocytes, myelocytes and metamyelocytes) > 1% indicates that a LEFT SHIFT is Present. International normalized rat io (INR) calculationOrdered By: Zaynab Pina on 08-28-2024 INR Coag (Bld) [Relative time] 2.2 {INR} [facility] Laboratory - Chemistry and C hemistry - challengeOrdered By: Zaynab Pina on 08-28-2024 AST [Catalytic activity/Vol] 23 U/L <32 [facility] MCV (mean corpuscular volume ) determinationOrdered By: Zaynab Pina on 08-28-2024 MCV (RBC) [Entitic vol] 96.0 fL 81-99 [facility] Mean corpuscular hemoglobin (MCH) determinationOrdered By: Zaynab Pina on 08-28-2024 MCH (RBC) [Entitic mass] 31.4 pg 27.0-32.0 [facility] Mean corpuscular hemoglobin concentration (MCHC) determinationOrdered By: Zaynab Pina on 08-28-2024 MCHC (RBC) [Mass/Vol] 32.7 g/dL 32-36 [facility] Mean platelet volume determi nationOrdered By: Zaynab Pina on 08-28-2024 Platelet mean volume (Bld) [Entitic vol] 10.9 fL 6.2-12.0 [facility] Monocyte percentageOrdered B y: Zaynab Pina on 08-28-2024 Monocytes/100 WBC (Bld) 11.5 % High 0-10 [facility] Neutrophil percentageOrdered By: Zaynab Pina on 08-28-2024 Neutrophils/100 WBC (Bld) 68.2 % 47-70 [facility] Nucleated red blood cell per centageOrdered By: Zaynab Pina on 08-28-2024 Nucleated RBC/100 WBC (Bld) [Ratio] 0 % 0-5 [facility] Platelet countOrdered By: Christine Pina on 08-28-2024 Platelets (Bld) [#/Vol] 183 10*3/uL 150-450 [facility] Potassium measurement (mass/ volume)Ordered By: Zaynab Pina on 08-28-2024 Potassium (Unsp spec) [Mass/Vol] 4.0 mmol/L 3.3-5.1 [facility] Prothrombin Time w/INRon INR Normal [facility] Comment on above: Result Comment: Canc elled via OM: Order cancelled - Patient discharged Performed By: #### L 300.3900 #### [facility] Laboratory [address] [place], [place], [id number] PROTIME Normal 11.7-14.9 [facility] Comment on above: Result Comment: Canc elled via OM: Order cancelled - Patient discharged Performed By: #### L 300.3900 #### [facility] Laboratory [address] [place], [place], [phone] Prothrombin timeOrdered By: Zaynab Pina on 08-28-2024 PT Coag (PPP) [Time] 24.5 s High 11.7-14.9 [facility] RBC Auto (Bld) [#/Vol]Ordere d By: Zaynab Pina on 08-28-2024 RBC (Bld) [#/Vol] 3.47 10*6/uL Low 4.2-5.4 [facility] Serum creatinine measurement (mass/volume)Ordered By: Zaynab Pina on 08-28-2024 Creatinine [Mass/Vol] 0.66 mg/dL Low 0.70-1.20 [facility] Serum globulin measurementOr dered By: Zaynab Pina on 08-28-2024 Globulin (S) [Mass/Vol] 2.6 g/dL 2.2-4.2 [facility] Serum glucose measurement (m ass/volume)Ordered By: Zaynab Pina on 08-28-2024 Glucose [Mass/Vol] 88 mg/dL 70-[address] [facility] Serum or plasma alanine llamas otransferase (ALT) measurementOrdered By: Zaynab Pina on 08-28-2024 ALT [Catalytic activity/Vol] 16 U/L <35 [facility] Serum or plasma albumin monica urement (mass/volume)Ordered By: Zaynab Pina on 08-28-2024 Albumin [Mass/Vol] 3.8 g/dL 3.4-4.[address] [facility] Serum or plasma albumin/glob ulin mass ratioOrdered By: Christineamilcar Cherrynatiloly on 08-28-2024 Albumin/Globulin [Mass ratio] 1.5 {ratio} 0.9-2.4 [facility] Serum or plasma alkaline juan m sphatase measurementOrdered By: Christineamilcar Pina on 08-28-2024 ALP [Catalytic activity/Vol] 101 U/L 35-104 [facility] Serum or plasma calcium monica urement (mass/volume)Ordered By: Christineamilcar Pina on 08-28-2024 Calcium [Mass/Vol] 9.1 mg/dL 7.6-11.[address] [facility] Serum or plasma urea nitroge n measurement (mass/volume)Ordered By: Christineamiclar Pina on 08-28-2024 Urea nitrogen [Mass/Vol] 16 mg/dL 4-19 [facility] Sodium levelOrdered By: Claudio last Dilipnatiloly on 08-28-2024 Sodium [Moles/Vol] 137 mmol/L 133-[address] [facility] Total proteinOrdered By: Malik gaxiola Dilipnatiloly on 08-28-2024 Protein [Mass/Vol] 6.3 g/dL 5.9-8.[address] [facility] White blood cell (WBC) count Ordered By: Christineamilcar Cherrynatiloly on 08-28-2024 WBC (Bld) [#/Vol] 5.9 10*3/uL 4.4-11.[address] [facility] International normalized rat io (INR) calculationOrdered By: Jasmyn Chan on 08-27-2024 INR Coag (Bld) [Relative time] 1.7 {INR} [facility] Prothrombin Time w/INRon INR Coag (PPP) [Relative time] 1.7 {INR} Normal [facility] Comment on above: Performed By: #### L 856.4736 ####[facility] [address] [place], [address] PT Coag (PPP) [Time] 20.6 s High 11.7-14.9 [facility] Comment on above: Performed By: #### L 300.3900 ####[facility] [address] [place], [address] Prothrombin timeOrdered By: Jasmyn Chan on 08-27-2024 PT Coag (PPP) [Time] 20.6 s High 11.7-14.9 [facility] Prothrombin Time w/INRon INR Coag (PPP) [Relative time] 1.4 {INR} Normal [facility] Comment on above: Performed By: #### L 300.3900 ####[facility] [address] [place], [address] PT Coag (PPP) [Time] 17.7 s High 11.7-14.9 [facility] Comment on above: Performed By: #### L 300.3900 ####[facility] [address] [place], [address] Prothrombin Time w/INRon INR Coag (PPP) [Relative time] 1.4 {INR} Normal [facility] Comment on above: Performed By: #### L 300.3900 #### [facility] Laboratory [address] [place], [address] PT Coag (PPP) [Time] 17.7 s High 11.7-14.9 [facility] Comment on above: Performed By: #### L 300.3900 #### [facility] Laboratory [address] [place], [address] Absolute lymphocyte countOrd ered By: Erasmo House on 08-24-2024 Lymphocytes Auto (Unsp spec) [#/Vol] 0.85 10*3/uL 0.83-4.51 [facility] Absolute neutrophil countOrd ered By: Erasmo House on 08-24-2024 Neutrophils (Bld) [#/Vol] 3.7 10*3/uL 2.0-7.7 [facility] Anion gap in Serum or Plasma Ordered By: Erasmo House on 08-24-2024 Anion gap [Moles/Vol] 13 mmol/L 5-15 [facility] Automated lymphocyte count a s percentage of total leukocytesOrdered By: Erasmo House on 08-24-2024 Lymphocytes/100 WBC Auto (Unsp spec) 15.8 % Low 19-41 [facility] BUN/creatinine ratioOrdered By: Erasmo House on 08-24-2024 Urea nitrogen/Creatinine [Mass ratio] 22.5 mg/mg High 10-20 [facility] Basic Metabolic Profile (BMP )on 08-24-2024 BUN/CRE 22.5 RATIO High 10- [facility] Comment on above: Performed By: #### L 100.0100, L300.3900, L500.2500 ####[facility] [address] [place], [address] Calcium [Mass/Vol] 9.0 mg/dL Normal 7.6-11.[address] [facility] Comment on above: Performed By: #### L 100.0100, L300.3900, L500.2500 ####[facility] [address] [place], [address] Chloride [Moles/Vol] 105 mmol/L Normal 98-108 [facility] Comment on above: Performed By: #### L 100.0100, L300.3900, [id number] ####[facility] [address] [place], [address] CO2 [Moles/Vol] 21.9 mmol/L Normal 21.0-32.0 [facility] Comment on above: Performed By: #### L 100.0100, L300.3900, L500.2500 ####[facility] [address] [place], [address] Creatinine [Mass/Vol] 0.65 mg/dL Low 0.70-1.20 [facility] Comment on above: Performed By: #### L 100.0100, L300.3900, [id number] ####[facility] [address] [place], [address] ECRCL 48.72 ml/min Low 50-250 [facility] Comment on above: Performed By: #### L 100.0100, L300.3900, [id number] ####[facility] [address] [place], [address] GAP 13 Normal 5-15 [facility] Comment on above: Performed By: #### L 100.0100, L300.3900, [id number] ####[facility] [address] [place], [address] GFR/1.73 sq M.predicted among non-blacks MDRD (S/P/Bld) [Vol rate/Area] 91 mL/min/{1.73_m2} Normal >60 [facility] Comment on above: Result Comment: mL/m in/1.73m2 CKD-EPI Creatinine Equation (2020) Performed By: #### L 100.0100, L300.3900, L500.2500 ####[facility] [address] [place], [address] Glucose [Mass/Vol] 90 mg/dL Normal 70-[address] [facility] Comment on above: Performed By: #### L 100.0100, L300.3900, L500.2500 ####[facility] [address] [place], [address] Potassium [Moles/Vol] 3.9 mmol/L Normal 3.3-5.1 [facility] Comment on above: Performed By: #### L 100.0100, L300.3900, L500.2500 ####[facility] [address] [place], [address] Sodium [Moles/Vol] 140 mmol/L Normal 133-[address] [facility] Comment on above: Performed By: #### L 100.0100, L300.3900, L500.2500 ####[facility] [address] [place], [address] Urea nitrogen [Mass/Vol] 15 mg/dL Normal 4-19 [facility] Comment on above: Performed By: #### L 100.0100, L300.3900, L500.2500 ####[facility] [address] [place], [address] Basophil percentageOrdered B y: Erasmo House on 08-24-2024 Basophils/100 WBC (Bld) 0.6 % 0-1 [facility] CBC W/Diff, Automatedon Absolute Lymph 0.85 X10 3/uL Normal 0.83-4.51 [facility] Comment on above: Performed By: #### L 100.0100, L300.3900, L500.2500 #### [facility] Laboratory [address] [place], [address] Absolute Neut 3.7 X10 3/uL Normal 2.0-7.7 [facility] Comment on above: Performed By: #### L 100.0100, L300.3900, L500.2500 #### [facility] Laboratory [address] [place], [address] Basophils/100 WBC (Bld) 0.6 % Normal 0-1 [facility] Comment on above: Performed By: #### L 100.0100, L300.3900, L500.2500 #### [facility] Laboratory [address] [place], [address] Eosinophils/100 WBC (Bld) 1.5 % Normal 0-5 [facility] Comment on above: Performed By: #### L 100.0100, L300.3900, [id number] #### [facility] Laboratory [address] [place], [address] Erythrocyte distribution width (RBC) [Ratio] 17.2 % High 11.6-14.6 [facility] Comment on above: Performed By: #### L 100.0100, L300.3900, L500.2500 #### [facility] Laboratory [address] [place], [address] Hematocrit (Bld) [Volume fraction] 34.6 % Low 37-47 [facility] Comment on above: Performed By: #### L 100.0100, L300.3900, L500.2500 #### [facility] Laboratory [address] [place], [address] Hemoglobin (Bld) [Mass/Vol] 11.4 g/dL Low 12.0-15.0 [facility] Comment on above: Performed By: #### L 100.0100, L300.3900, L500.2500 #### [facility] Laboratory [address] [place], [address] IG% 0.400 Normal 0.0-0.9 [facility] Comment on above: Result Comment: IG% - Immature Granulocytes (promyelocytes, myelocytes and metamyelocytes) > 1% indicates that a LEFT SHIFT is Present. Performed By: #### L 100.0100, L300.3900, L500.2500 #### [facility] Laboratory [address] [place], [address] Lymphocytes/100 WBC (Bld) 15.8 % Low 19-41 [facility] Comment on above: Performed By: #### L 100.0100, L300.3900, L500.2500 #### [facility] Laboratory [address] [place], [address] MCH (RBC) [Entitic mass] 31.8 pg Normal 27.0-32.0 [facility] Comment on above: Performed By: #### L 100.0100, L300.3900, L500.2500 #### [facility] Laboratory [address] [place], [address] MCHC (RBC) [Mass/Vol] 32.9 g/dL Normal 32-36 [facility] Comment on above: Performed By: #### L 100.0100, L300.3900, [id number] #### [facility] Laboratory [address] [place], [address] MCV (RBC) [Entitic vol] 96.6 fL Normal 81-99 [facility] Comment on above: Performed By: #### L 100.0100, L300.3900, L500.2500 #### [facility] Laboratory [address] [place], [address] Monocytes/100 WBC (Bld) 12.6 % High 0-10 [facility] Comment on above: Performed By: #### L 100.0100, L300.3900, L500.2500 #### [facility] Laboratory [address] [place], [address] Neutrophils/100 WBC (Bld) 69.1 % Normal 47-70 [facility] Comment on above: Performed By: #### L 100.0100, L300.3900, L500.2500 #### [facility] Laboratory [address] [place], [address] Nucleated RBC (Bld) [#/Vol] 0 10*3/uL Normal 0-5 [facility] Comment on above: Performed By: #### L 100.0100, L300.3900, L500.2500 #### [facility] Laboratory [address] [place], [address] Platelet mean volume (Bld) [Entitic vol] 11.0 fL Normal 6.2-12.0 [facility] Comment on above: Performed By: #### L 100.0100, L300.3900, L500.2500 #### [facility] Laboratory [address] [place], [address] Platelets (Bld) [#/Vol] 154 10*3/uL Normal 150-450 [facility] Comment on above: Performed By: #### L 100.0100, L300.3900, L500.2500 #### [facility] Laboratory [address] [place], [address] RBC (Bld) [#/Vol] 3.58 10*6/uL Low 4.2-5.4 [facility] Comment on above: Performed By: #### L 100.0100, L300.3900, L500.2500 #### [facility] Laboratory [address] [place], [address] RDW SD 61.1 fl High 35.1-43.9 [facility] Comment on above: Performed By: #### L 100.0100, L300.3900, L500.2500 #### [facility] Laboratory [address] [place], [address] WBC (Bld) [#/Vol] 5.4 10*3/uL Normal 4.4-11.[address] [facility] Comment on above: Performed By: #### L 100.0100, L300.3900, L500.2500 #### [facility] Laboratory [address] [place], [address] Carbon dioxide, total [Moles /volume] in Central venous bloodOrdered By: Erasmo House on 08-24-2024 CO2 [Moles/Vol] 21.9 mmol/L 21.0-32.0 [facility] Chloride assayOrdered By: Edouard House on 08-24-2024 Chloride [Moles/Vol] 105 mmol/L 98-108 [facility] Eosinophil percentageOrdered By: Erasmo House on 08-24-2024 Eosinophils/100 WBC (Bld) 1.5 % 0-5 [facility] Erythrocyte distribution wid th ratioOrdered By: Erasmo House on 08-24-2024 Erythrocyte distribution width (RBC) [Ratio] 17.2 % High 11.6-14.6 [facility] Erythrocyte distribution wid th standard deviationOrdered By: Erasmo House on 08-24-2024 Erythrocyte distribution width (RBC) [Ratio] 61.1 fl High 35.1-43.9 [facility] Glomerular filtration rate ( GFR) estimation/1.73 sq m using serum, plasma, or whole bOrdered By: Erasmo House on 08-24-2024 GFR/1.73 sq M.predicted among non-blacks MDRD (S/P/Bld) [Vol rate/Area] 91 mL/min/{1.73_m2} >60 [facility] Comment on above: mL/min/1.73m2 CKD-EP I Creatinine Equation (2020) Hematocrit Auto (Bld) [Volum e fraction]Ordered By: Erasmo House on 08-24-2024 Hematocrit (Bld) [Volume fraction] 34.6 % Low 37-47 [facility] Hemoglobin measurementOrdere d By: Erasmo House on 08-24-2024 Hemoglobin (Bld) [Mass/Vol] 11.4 g/dL Low 12.0-15.0 [facility] Immature granulocytes/100 WB C Auto (Bld)Ordered By: Erasmo House on 08-24-2024 Immature granulocytes/100 WBC (Bld) 0.400 % 0.0-0.9 [facility] Comment on above: IG% - Immature Granu locytes (promyelocytes, myelocytes and metamyelocytes) > 1% indicates that a LEFT SHIFT is Present. MCV (mean corpuscular volume ) determinationOrdered By: Erasmo House on 08-24-2024 MCV (RBC) [Entitic vol] 96.6 fL 81-99 [facility] Mean corpuscular hemoglobin (MCH) determinationOrdered By: Erasmo House on 08-24-2024 MCH (RBC) [Entitic mass] 31.8 pg 27.0-32.0 [facility] Mean corpuscular hemoglobin concentration (MCHC) determinationOrdered By: Erasmo House on 08-24-2024 MCHC (RBC) [Mass/Vol] 32.9 g/dL 32-36 [facility] Mean platelet volume determi nationOrdered By: Erasmo House on 08-24-2024 Platelet mean volume (Bld) [Entitic vol] 11.0 fL 6.2-12.0 [facility] Monocyte percentageOrdered B y: Erasmo House on 08-24-2024 Monocytes/100 WBC (Bld) 12.6 % High 0-10 [facility] Neutrophil percentageOrdered By: Erasmo House on 08-24-2024 Neutrophils/100 WBC (Bld) 69.1 % 47-70 [facility] Nucleated red blood cell per centageOrdered By: Erasmo House on 08-24-2024 Nucleated RBC/100 WBC (Bld) [Ratio] 0 % 0-5 [facility] Platelet countOrdered By: Edouard House on 08-24-2024 Platelets (Bld) [#/Vol] 154 10*3/uL 150-450 [facility] Potassium measurement (mass/ volume)Ordered By: Erasmo House on 08-24-2024 Potassium (Unsp spec) [Mass/Vol] 3.9 mmol/L 3.3-5.1 [facility] Prothrombin Time w/INRon INR Coag (PPP) [Relative time] 1.3 {INR} Normal [facility] Comment on above: Performed By: #### L 100.0100, L300.3900, L500.2500 #### [facility] Laboratory [address] [place], [address] PT Coag (PPP) [Time] 16.3 s High 11.7-14.9 [facility] Comment on above: Performed By: #### L 100.0100, L300.3900, L500.2500 #### [facility] Laboratory [address] [place], [address] RBC Auto (Bld) [#/Vol]Ordere d By: Erasmo House on 08-24-2024 RBC (Bld) [#/Vol] 3.58 10*6/uL Low 4.2-5.4 [facility] Serum creatinine measurement (mass/volume)Ordered By: Erasmo House on 08-24-2024 Creatinine [Mass/Vol] 0.65 mg/dL Low 0.70-1.20 [facility] Serum glucose measurement (m ass/volume)Ordered By: Erasmo House on 08-24-2024 Glucose [Mass/Vol] 90 mg/dL 70-[address] [facility] Serum or plasma calcium monica urement (mass/volume)Ordered By: Erasmo House on 08-24-2024 Calcium [Mass/Vol] 9.0 mg/dL 7.6-11.[address] [facility] Serum or plasma urea nitroge n measurement (mass/volume)Ordered By: Erasmo House on 08-24-2024 Urea nitrogen [Mass/Vol] 15 mg/dL 4-19 [facility] Sodium levelOrdered By: Iwona House on 08-24-2024 Sodium [Moles/Vol] 140 mmol/L 133-[address] [facility] White blood cell (WBC) count Ordered By: Erasmo House on 08-24-2024 WBC (Bld) [#/Vol] 5.4 10*3/uL 4.4-11.[address] [facility] Absolute lymphocyte countOrd ered By: Ron Mariscal on 08-23-2024 Lymphocytes Auto (Unsp spec) [#/Vol] 0.64 10*3/uL Low 0.83-4.51 [facility] Absolute neutrophil countOrd ered By: Ron Mariscal on 08-23-2024 Neutrophils (Bld) [#/Vol] 6.5 10*3/uL 2.0-7.7 [facility] Anion gap in Serum or Plasma Ordered By: Ron Mariscal on 08-23-2024 Anion gap [Moles/Vol] 14 mmol/L 5-15 [facility] Automated lymphocyte count a s percentage of total leukocytesOrdered By: Ron Mariscal on 08-23-2024 Lymphocytes/100 WBC Auto (Unsp spec) 8.1 % Low 19-41 [facility] BUN/creatinine ratioOrdered By: Ron Mariscal on 08-23-2024 Urea nitrogen/Creatinine [Mass ratio] 34.8 mg/mg High 10-20 [facility] Basic Metabolic Profile (BMP )on 08-23-2024 BUN/CRE 34.8 RATIO High 10-20 [facility] Comment on above: Performed By: #### L 100.0100, L500.2500 #### [facility] Laboratory [address] [place], [address] Calcium [Mass/Vol] 9.2 mg/dL Normal 7.6-11.[address] [facility] Comment on above: Performed By: #### L 100.0100, L500.2500 #### [facility] Laboratory [address] [place], [address] Chloride [Moles/Vol] 104 mmol/L Normal 98-108 [facility] Comment on above: Performed By: #### L 100.0100, L500.2500 #### [facility] Laboratory [address] [place], [address] CO2 [Moles/Vol] 22.1 mmol/L Normal 21.0-32.0 [facility] Comment on above: Performed By: #### L 100.0100, L500.2500 #### [facility] Laboratory [address] [place], [address] Creatinine [Mass/Vol] 0.63 mg/dL Low 0.70-1.20 [facility] Comment on above: Performed By: #### L 100.0100, L500.2500 #### [facility] Laboratory [address] [place], [address] ECRCL 48.72 ml/min Low 50-250 [facility] Comment on above: Performed By: #### L 100.0100, L500.2500 #### [facility] Laboratory [address] [place], [address] GAP 14 Normal 5-15 [facility] Comment on above: Performed By: #### L 100.0100, L500.2500 #### [facility] Laboratory [address] [place], [address] GFR/1.73 sq M.predicted among non-blacks MDRD (S/P/Bld) [Vol rate/Area] 91 mL/min/{1.73_m2} Normal >60 [facility] Comment on above: Result Comment: mL/m in/1.73m2 CKD-EPI Creatinine Equation (2020) Performed By: #### L 100.0100, L500.2500 #### [facility] Laboratory [address] [place], [address] Glucose [Mass/Vol] 116 mg/dL High 70-[address] [facility] Comment on above: Performed By: #### L 100.0100, L500.2500 #### [facility] Laboratory [address] [place], [address] Potassium [Moles/Vol] 3.9 mmol/L Normal 3.3-5.1 [facility] Comment on above: Performed By: #### L 100.0100, L500.2500 #### [facility] Laboratory [address] [place], [address] Sodium [Moles/Vol] 140 mmol/L Normal 133-[address] [facility] Comment on above: Performed By: #### L 100.0100, L500.2500 #### [facility] Laboratory [address] [place], [address] Urea nitrogen [Mass/Vol] 22 mg/dL High 4-19 [facility] Comment on above: Performed By: #### L 100.0100, L500.2500 #### [facility] Laboratory [address] [place], [address] Basophil percentageOrdered B y: Ron Mariscal on 08-23-2024 Basophils/100 WBC (Bld) 0.4 % 0-1 [facility] Brain/Head without Contrasto n 08-23-2024 Brain/Head without Contrast [facility] Imaging Services [address] [place] [address] Brain/Head without Contrast MR#: [id number] Acct: [id number] Name: HAYDEE BUSTAMANTE Rep #: [id number] : 1945 F 79 From: Jasmyn Herrera MD PCP: Dr. Claudine Durán MD Status: REG ER Study: Brain/Head without Contrast Date of Exam: 07/13 Exam# [id number] Ordering Dr: Ron Mariscal MD EXAM: CT Head Without Intravenous Contrast CLINICAL INDICATION: TRAUMA TECHNIQUE: Axial computed tomography images of the head/brain without intravenous contrast. This CT exam was performed using one or more of the following dose reduction techniques: automated exposure control, adjustment of the mA and/or kV according to patient size, and/or use of iterative reconstruction technique. COMPARISON: No relevant prior studies available. FINDINGS: BRAIN AND EXTRA-AXIAL SPACES: The cerebral and cerebellar sulci are prominent consistent with brain atrophy. Areas of decreased attenuation in the deep cerebral white matter are consistent with small vessel ischemic/degenerative changes. No acute intracranial hemorrhage, midline shift or mass effect. If symptoms persist, further evaluation with MRI is recommended. BONES/JOINTS: Unremarkable. No acute fracture. SOFT TISSUES: Unremarkable. SINUSES: Unremarkable as visualized. No acute sinusitis. MASTOID AIR CELLS: Unremarkable as visualized. No mastoid effusion. CT/Brain/Head without Contrast IMPRESSION: 1. Generalized brain atrophy. 2. Small vessel ischemic/degenerative changes. 3. No acute intracranial hemorrhage, midline shift or mass effect. If symptoms persist, further evaluation with MRI is recommended. Reading Location: [facility] CC: Dr. Ron Mariscal MD; Dr. Claudine Durán MD Inspector Precision: Signed Normal [facility] CBC W/Diff, Automatedon Absolute Lymph 0.64 X10 3/uL Low 0.83-4.51 [facility] Comment on above: Performed By: #### L 100.0100, L500.2500 #### [facility] Laboratory [address] [place], [address] Absolute Neut 6.5 X10 3/uL Normal 2.0-7.7 [facility] Comment on above: Performed By: #### L 100.0100, L500.2500 #### [facility] Laboratory [address] [place], [address] Basophils/100 WBC (Bld) 0.4 % Normal 0-1 [facility] Comment on above: Performed By: #### L 100.0100, L500.2500 #### [facility] Laboratory [address] [place], [address] Eosinophils/100 WBC (Bld) 0.1 % Normal 0-5 [facility] Comment on above: Performed By: #### L 100.0100, L500.2500 #### [facility] Laboratory [address] [place], [address] Erythrocyte distribution width (RBC) [Ratio] 17.0 % High 11.6-14.6 [facility] Comment on above: Performed By: #### L 100.0100, L500.2500 #### [facility] Laboratory [address] [place], [address] Hematocrit (Bld) [Volume fraction] 33.9 % Low 37-47 [facility] Comment on above: Performed By: #### L 100.0100, L500.2500 #### [facility] Laboratory [address] [place], [address] Hemoglobin (Bld) [Mass/Vol] 11.3 g/dL Low 12.0-15.0 [facility] Comment on above: Performed By: #### L 100.0100, L500.2500 #### [facility] Laboratory [address] [place], [address] IG% 0.500 Normal 0.0-0.9 [facility] Comment on above: Result Comment: IG% - Immature Granulocytes (promyelocytes, myelocytes and metamyelocytes) > 1% indicates that a LEFT SHIFT is Present. Performed By: #### L 100.0100, L500.2500 #### [facility] Laboratory [address] [place], [address] Lymphocytes/100 WBC (Bld) 8.1 % Low 19-41 [facility] Comment on above: Performed By: #### L 100.0100, L500.2500 #### [facility] Laboratory [address] [place], [address] MCH (RBC) [Entitic mass] 32.1 pg High 27.0-32.0 [facility] Comment on above: Performed By: #### L 100.0100, L500.2500 #### [facility] Laboratory [address] [place], [address] MCHC (RBC) [Mass/Vol] 33.3 g/dL Normal 32-36 [facility] Comment on above: Performed By: #### L 100.0100, L500.2500 #### [facility] Laboratory [address] [place], [address] MCV (RBC) [Entitic vol] 96.3 fL Normal 81-99 [facility] Comment on above: Performed By: #### L 100.0100, L500.2500 #### [facility] Laboratory [address] [place], [address] Monocytes/100 WBC (Bld) 8.6 % Normal 0-10 [facility] Comment on above: Performed By: #### L 100.0100, L500.2500 #### [facility] Laboratory [address] [place], [address] Neutrophils/100 WBC (Bld) 82.3 % High 47-70 [facility] Comment on above: Performed By: #### L 100.0100, L500.2500 #### [facility] Laboratory [address] [place], [address] Nucleated RBC (Bld) [#/Vol] 0 10*3/uL Normal 0-5 [facility] Comment on above: Performed By: #### L 100.0100, L500.2500 #### [facility] Laboratory [address] [place], [address] Platelet mean volume (Bld) [Entitic vol] 10.9 fL Normal 6.2-12.0 [facility] Comment on above: Performed By: #### L 100.0100, L500.2500 #### [facility] Laboratory [address] [place], [address] Platelets (Bld) [#/Vol] 182 10*3/uL Normal 150-450 [facility] Comment on above: Performed By: #### L 100.0100, L500.2500 #### [facility] Laboratory [address] [place], [address] RBC (Bld) [#/Vol] 3.52 10*6/uL Low 4.2-5.4 [facility] Comment on above: Performed By: #### L 100.0100, L500.2500 #### [facility] Laboratory [address] [place], [address] RDW SD 58.6 fl High 35.1-43.9 [facility] Comment on above: Performed By: #### L 100.0100, L500.2500 #### [facility] Laboratory [address] [place], [address] WBC (Bld) [#/Vol] 7.9 10*3/uL Normal 4.4-11.[address] [facility] Comment on above: Performed By: #### L 100.0100, L500.2500 #### [facility] Laboratory [address] [place], [address] CPK Total, Creatine Kinaseon 08-23-2024 CPK TOTAL 128 U/L Normal 24-195 [facility] Comment on above: Performed By: #### L 501.3620 #### [facility] Laboratory [address] [place], [address] Carbon dioxide, total [Moles /volume] in Central venous bloodOrdered By: Ron Mariscal on 08-23-2024 CO2 [Moles/Vol] 22.1 mmol/L 21.0-32.0 [facility] Chloride assayOrdered By: Kaitlynn Mariscal on 08-23-2024 Chloride [Moles/Vol] 104 mmol/L 98-108 [facility] Consultation - Orthopedicson 08-23-2024 Consultation - Orthopedics [facility] Medical Records Department [address] [place] [address] Consultation - Orthopedics 08/23/24 1354 MR#: [id number] Acct: [id number] Name: HAYDEE BUSTAMANTE Rep #: [id number] : 1945 79 From: Burak Amanda MD PCP: Dr. Claudine Durán MD Status:ADM ADAIR Location: [place] [address] HPI Consult Data Date of Consult: 08/23/24 HPI Narrative Reason for Consultation: Left wrist pain HPI Narrative: HAYDEE BUSTAMANTE, is a 79 F who presents today with left wrist pain. Patient notes she is in cardiac rehab and has a couple days left. She had a TAVR and is contained to rehab from this. She is on Coumadin for blood thinner and is currently symptomatic. Patient notes she fell last evening. She notes she was getting out of bed to go to the bathroom and fell she did not hit her head or lose consciousness however she feels things happen quickly and does not remember the exact events of her fall. She lives at home by herself and does her own cooking cleaning laundry and ADLs. She presents with left wrist pain noted at 8 out of 10 worse with motion better with immobilization. She denies any associated numbness and tingling. She was seen in the emergency department and noted that she is unable to go home due to difficulty with ADLs. She has chronic osteoarthritis and rheumatoid arthritis causing lower extremity pain. She uses her hands to get out of the chair or up off of the low toilet seat. She was unable to do this in the emergency room. Based on this she was admitted for placement and likely rehabilitation. [facility] Medical History Hypertension GERD (gastroesophageal reflux disease) Pericardial effusion CHF (congestive heart failure) Wears glasses Walker as ambulation aid Ambulates [...] venous thrombosis) Pulmonary embolism Colitis COVID-19 Histoplasmosis Home Medications ???Medication ???Instructions ???Recorded ???Last Taken ???Type multivitamin (Daily Multi-Vitamin 1 tab PO DAILY supplement 4 10/01/23 History tablet) vitamins A,C,P-xhob-yaeyle 2,148 2 tab PO BID eye health 03/19/23 0 10/01/23 History mcg-113 mg-45 mg-17.4 mg tablet (PreserVision AREDS) gabapentin 300 mg capsule 300 mg PO Q12 nerve pain #0 caps 0 04/05/23 10/01/23 Rx potassium chloride 20 mEq 20 meq PO BIDCM #0 tabs 04/27/23 0 10/01/23 Rx tablet,extended release(part/cryst) fluticasone propionate 50 1 spray intranasal DAILY 08/13/23 10/02/23 History mcg/actuation nasal spray,suspension furosemide 20 mg tablet 20 mg PO DAILY PRN edema 08/13/23 10/01/23 History tiotropium bromide 2.5 2 puff inhalation DAILY 08/13/23 0 10/02/23 History mcg/actuation mist for inhalation (Spiriva Respimat) diclofenac sodium 1 % topical gel 4 g topical BID PRN PRN knee pain 08/18/23 10/02/23 Rx (Voltaren Arthritis Pain) #100 grams omega 0-mry-ech-fish oil 1,200 mg 1 cap PO DAILY 10/01/23 Unknown H istory (144 mg-216 mg) capsule (Fish Oil) albuterol sulfate 90 mcg/actuation 2 puff inhalation Q4H PRN PRN Unknown History aerosol inhaler shortness of breath or wheezing cholecalciferol (vitamin D3) 25 25 mcg PO QDAY 06/13/24 Unknown Hi story mcg (1,000 unit) capsule fluticasone 250 mcg-salmeterol 50 1 inh inhalation BID 06/13/24 Unk nown History mcg/dose blistr powdr for inhalation (Wixela Inhub) folic acid 0.8 mg capsule 0.8 mg PO QDAY 06/13/24 Unknown Hi story methotrexate sodium 2.5 mg tablet 10 mg PO QWEEK 06/13/24 Unknown H istory sulfasalazine 500 mg 1 g PO BID 06/13/24 Unknown Histor y tablet,delayed release acetaminophen 500 mg tablet 1,000 mg PO TID Pain Score 1-10 Unknown History clindamycin HCl 300 mg capsule 600 mg (2 x 300 mg) PO ONCE #2 cap s 06/20/24 Unknown Rx ferrous sulfate 325 mg (65 mg 325 mg PO QDAY 06/20/24 Unknown Hi story iron) tablet metoprolol succinate 25 mg 25 mg PO QDAY #30 tabs 07/18/24 Un known Rx tablet,extended release 24 hr folic acid 1 mg tablet 1 mg PO DAILY 08/23/24 Unknown His tory warfarin 1 mg tablet 5 mg PO DAILY 08/23/24 Unknown His tory warfarin 5 mg tablet See Rx Instructions .Route .COMPLE X 08/23/24 Unknown History Held on 10/01/23. Instructions: ON HOLD FOR COLONOSCOPY Allergy/AdvReac Type Severity Reaction Status Date / Time Penicillins Allergy Severe Anaphylaxis Verified 06/20/24 10:10 (more content not included)... Normal [facility] Emergency Department Summary on 08-23-2024 Emergency Department Summary [facility] Medical Records Department [address] [place] [address] Emergency Department Summary 08/23/24 MR#: [id number] Acct: [id number] Name: HAYDEE BUSTAMANTE Rep #: [id number] : 1945 79 From: Ron Mariscal MD PCP: Dr. Claudine Durán MD Status:REG ER Location: ED HPI HPI - Fall History of Present Illness Chief Complaint: Fall Informant: patient and EMS Narrative Narrative: 79-year-old female presents to the ER by EMS after a fall. She arrives a little after 7 AM, she states the fall occurred at around 1:30 AM. She was not able to get up because of the chronic arthritis in both of her knees, not because of the lower extremity injury. She injured her left wrist as she used her left upper extremity to try to catch herself when she was falling, and injured her left face mildly. She denies having a headache. She is on warfarin. She states she got up out of bed to go brush her teeth, and she is not sure why she fell, but she denies any prodromal symptoms such as lightheadedness, dyspnea, chest discomfort, and denies any loss of consciousness at any point in time or syncope. [id number]-[id number]. Lives by herself. 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 She states this morning she laid there for most of the morning except for when she scooted herself around with her right arm and legs to get to telephone and to get to the front door and unlock the door for the EMS personnel. She states typically she would have difficulty getting up off of the floor but would be able to if her wrist was not injured [facility] Medical History Hypertension GERD (gastroesophageal reflux disease) Pericardial effusion CHF (congestive heart failure) Wears glasses Walker as ambulation aid Ambulates [...] venous thrombosis) Pulmonary embolism Colitis COVID-19 Histoplasmosis Home Medications ???Medication ???Instructions ???Recorded ???Last Taken ???Type multivitamin (Daily Multi-Vitamin 1 tab PO DAILY supplement 4 10/01/23 History tablet) vitamins A,C,C-hhqs-yajves 2,148 2 tab PO BID eye health 03/19/23 0 10/01/23 History mcg-113 mg-45 mg-17.4 mg tablet (PreserVision AREDS) gabapentin 300 mg capsule 300 mg PO Q12 nerve pain #0 caps 0 04/05/23 10/01/23 Rx potassium chloride 20 mEq 20 meq PO BIDCM #0 tabs 04/27/23 0 10/01/23 Rx tablet,extended release(part/cryst) fluticasone propionate 50 1 spray intranasal DAILY 08/13/23 10/02/23 History mcg/actuation nasal spray,suspension furosemide 20 mg tablet 20 mg PO DAILY PRN edema 08/13/23 10/01/23 History tiotropium bromide 2.5 2 puff inhalation DAILY 08/13/23 0 10/02/23 History mcg/actuation mist for inhalation (Spiriva Respimat) diclofenac sodium 1 % topical gel 4 g topical BID PRN PRN knee pain 08/18/23 10/02/23 Rx (Voltaren Arthritis Pain) #100 grams warfarin 5 mg tablet See Rx Instructions .Route 4 09/27/23 Rx Held on 10/01/23. .COMPLEX #30 tabs Instructions: ON HOLD FOR COLONOSCOPY omega 6-hgs-xov-fish oil 1,200 mg 1 cap PO DAILY 10/01/23 Unknown H istory (144 mg-216 mg) capsule (Fish Oil) albuterol sulfate 90 mcg/actuation 2 puff inhalation Q4H PRN PRN Unknown History aerosol inhaler cholecalciferol (vitamin D3) 25 25 mcg PO QDAY 06/13/24 Unknown Hi story mcg (1,000 unit) capsule fluticasone 250 mcg-salmeterol 50 1 inh inhalation BID 06/13/24 Unk nown History mcg/dose blistr powdr for inhalation (Wixela Inhub) folic acid 0.8 mg capsule 0.8 mg PO QDAY 06/13/24 Unknown Hi story methotrexate sodium 2.5 mg tablet 10 mg PO QWEEK 06/13/24 Unknown H istory spironolactone 25 mg tablet 25 mg PO DAILY 06/13/24 Unknown Hi story sulfasalazine 500 mg 1 g PO BID 06/13/24 Unknown Histor y tablet,delayed release acetaminophen 500 mg tablet 1,000 mg PO TID Pain Score 1-10 Unknown History clindamycin HCl 300 mg capsule 600 mg (2 x 300 mg) PO ONCE #2 cap s 06/20/24 Unknown Rx ferrous sulfate 325 mg (65 mg 325 mg PO QDAY 06/20/24 Unknown Hi story iron) tablet metoprolol succinate 25 mg 25 mg PO QDAY #30 tabs 07/18/24 Un known Rx tablet,extended release 24 hr Allergy/AdvReac Type Severity Reaction Status Date / Time Penicillins Allergy Severe Anaph (more content not included)... Normal [facility] Eosinophil percentageOrdered By: Ron Mariscal on 08-23-2024 Eosinophils/100 WBC (Bld) 0.1 % 0-5 [facility] Erythrocyte distribution wid th ratioOrdered By: Ron Mariscal on 08-23-2024 Erythrocyte distribution width (RBC) [Ratio] 17.0 % High 11.6-14.6 [facility] Erythrocyte distribution wid th standard deviationOrdered By: Ron Loida on 08-23-2024 Erythrocyte distribution width (RBC) [Ratio] 58.6 fl High 35.1-43.9 [facility] Glomerular filtration rate ( GFR) estimation/1.73 sq m using serum, plasma, or whole bOrdered By: Rontasha Mariscal on 08-23-2024 GFR/1.73 sq M.predicted among non-blacks MDRD (S/P/Bld) [Vol rate/Area] 91 mL/min/{1.73_m2} >60 [facility] Comment on above: mL/min/1.73m2 CKD-EP I Creatinine Equation (2020) H AND P Exam - Hospitaliston 08-23-2024 H&P Exam - Hospitalist [facility] Medical Records Department [address] [place] [address] H P Exam - Hospitalist 08/23/24 1023 MR#: [id number] Acct: [id number] Name: HAYDEE BUSTAMANTE Rep #: [id number] : 1945 79 From: Erasmo House MD PCP: Dr. Claudine Durán MD Status:ADM ADAIR [facility] - General General Date of Admission: 08/23/24 Date of Service: 08/23/24 Chief Complaint: Fall over left hand and left wrist fracture. HPI Narrative HAYDEE BUSTAMANTE, is a 79 F came to ED after she had a fall about 1:30 AM in the bedroom while she woke up to go to bathroom. She fell on her left side and also hit her head. She has bruise around the left eye, left wrist pain and swelling. She called to seek help around 6 AM and brought to ED by EMS. She denies any headache. Mechanism of fall is unclear she is not sure how she fell down. She denies lightheaded dizziness chest discomfort shortness of breath, vertigo or loss of consciousness. Denies prior history of seizure. In ED she was found fracture of left distal radius, facial bruise and therefore admitted. Vitals lab and x-ray done in the ED were reviewed. [facility] Medical History Hypertension GERD (gastroesophageal reflux disease) Pericardial effusion CHF (congestive heart failure) Wears glasses Walker as ambulation aid Ambulates [...] venous thrombosis) Pulmonary embolism Colitis COVID-19 Histoplasmosis Home Medications ???Medication ???Instructions ???Recorded ???Last Taken ???Type multivitamin (Daily Multi-Vitamin 1 tab PO DAILY supplement 4 10/01/23 History tablet) vitamins A,C,D-yshj-yvcdbt 2,148 2 tab PO BID eye health 03/19/23 0 10/01/23 History mcg-113 mg-45 mg-17.4 mg tablet (PreserVision AREDS) gabapentin 300 mg capsule 300 mg PO Q12 nerve pain #0 caps 0 04/05/23 10/01/23 Rx potassium chloride 20 mEq 20 meq PO BIDCM #0 tabs 04/27/23 0 10/01/23 Rx tablet,extended release(part/cryst) fluticasone propionate 50 1 spray intranasal DAILY 08/13/23 10/02/23 History mcg/actuation nasal spray,suspension furosemide 20 mg tablet 20 mg PO DAILY PRN edema 08/13/23 10/01/23 History tiotropium bromide 2.5 2 puff inhalation DAILY 08/13/23 0 10/02/23 History mcg/actuation mist for inhalation (Spiriva Respimat) diclofenac sodium 1 % topical gel 4 g topical BID PRN PRN knee pain 08/18/23 10/02/23 Rx (Voltaren Arthritis Pain) #100 grams omega 8-aiy-quj-fish oil 1,200 mg 1 cap PO DAILY 10/01/23 Unknown H istory (144 mg-216 mg) capsule (Fish Oil) albuterol sulfate 90 mcg/actuation 2 puff inhalation Q4H PRN PRN Unknown History aerosol inhaler shortness of breath or wheezing cholecalciferol (vitamin D3) 25 25 mcg PO QDAY 06/13/24 Unknown Hi story mcg (1,000 unit) capsule fluticasone 250 mcg-salmeterol 50 1 inh inhalation BID 06/13/24 Unk nown History mcg/dose blistr powdr for inhalation (Wixela Inhub) folic acid 0.8 mg capsule 0.8 mg PO QDAY 06/13/24 Unknown Hi story methotrexate sodium 2.5 mg tablet 10 mg PO QWEEK 06/13/24 Unknown H istory sulfasalazine 500 mg 1 g PO BID 06/13/24 Unknown Histor y tablet,delayed release acetaminophen 500 mg tablet 1,000 mg PO TID Pain Score 1-10 Unknown History clindamycin HCl 300 mg capsule 600 mg (2 x 300 mg) PO ONCE #2 cap s 06/20/24 Unknown Rx ferrous sulfate 325 mg (65 mg 325 mg PO QDAY 06/20/24 Unknown Hi story iron) tablet metoprolol succinate 25 mg 25 mg PO QDAY #30 tabs 07/18/24 Un known Rx tablet,extended release 24 hr folic acid 1 mg tablet 1 mg PO DAILY 08/23/24 Unknown His tory warfarin 1 mg tablet mg PO 08/23/24 Unknown History warfarin 5 mg tablet See Rx Instructions .Route .COMPLE X 08/23/24 Unknown History Held on 10/01/23. Instructions: ON HOLD FOR COLONOSCOPY Allergy/AdvReac Type Severity Reaction Status Date / Time Penicillins Allergy Severe Anaphylaxis Verified 06/20/24 10:10 Surgical History History of transcatheter aortic valve replacement (TAVR) History of back surgery History of esophagogastroduodenoscopy (EGD) History of tonsillectomy History of embolic filter insertion Hx of foot surgery Social History household members: none Smoking Status: Former smoker alcoho (more content not included)... Normal [facility] Hematocrit Auto (Bld) [Volum e fraction]Ordered By: Ron Mariscal on 08-23-2024 Hematocrit (Bld) [Volume fraction] 33.9 % Low 37-47 [facility] Hemoglobin measurementOrdere d By: Ron Mariscal on 08-23-2024 Hemoglobin (Bld) [Mass/Vol] 11.3 g/dL Low 12.0-15.0 [facility] Immature granulocytes/100 WB C Auto (Bld)Ordered By: Ron Mariscal on 08-23-2024 Immature granulocytes/100 WBC (Bld) 0.500 % 0.0-0.9 [facility] Comment on above: IG% - Immature Granu locytes (promyelocytes, myelocytes and metamyelocytes) > 1% indicates that a LEFT SHIFT is Present. International normalized rat io (INR) calculationOrdered By: Ron Mariscal on 08-23-2024 INR Coag (Bld) [Relative time] 1.2 {INR} [facility] MCV (mean corpuscular volume ) determinationOrdered By: Ron Mariscal on 08-23-2024 MCV (RBC) [Entitic vol] 96.3 fL 81-99 [facility] Magnesiumon 08-23-2024 Magnesium [Mass/Vol] 2.1 mg/dL Normal 1.5-2.2 [facility] Comment on above: Performed By: #### L [id number] ####[facility] [id number] [place], [address] Magnesium measurement (mass/ volume)Ordered By: Erasmo House on 08-23-2024 Magnesium (Unsp spec) [Mass/Vol] 2.1 mg/dL 1.5-2.2 [facility] Mean corpuscular hemoglobin (MCH) determinationOrdered By: Ron Mariscal on 08-23-2024 MCH (RBC) [Entitic mass] 32.1 pg High 27.0-32.0 [facility] Mean corpuscular hemoglobin concentration (MCHC) determinationOrdered By: Ron Mariscal on 08-23-2024 MCHC (RBC) [Mass/Vol] 33.3 g/dL 32-36 [facility] Mean platelet volume determi nationOrdered By: Ron Mariscal on 08-23-2024 Platelet mean volume (Bld) [Entitic vol] 10.9 fL 6.2-12.0 [facility] Monocyte percentageOrdered B y: Ron Mariscal on 08-23-2024 Monocytes/100 WBC (Bld) 8.6 % 0-10 [facility] Neutrophil percentageOrdered By: Ron Mariscal on 08-23-2024 Neutrophils/100 WBC (Bld) 82.3 % High 47-70 [facility] Nucleated red blood cell per centageOrdered By: Ron Mariscal on 08-23-2024 Nucleated RBC/100 WBC (Bld) [Ratio] 0 % 0-5 [facility] Platelet countOrdered By: Kaitlynn Mariscal on 08-23-2024 Platelets (Bld) [#/Vol] 182 10*3/uL 150-450 [facility] Potassium measurement (mass/ volume)Ordered By: Ron Mariscal on 08-23-2024 Potassium (Unsp spec) [Mass/Vol] 3.9 mmol/L 3.3-5.1 [facility] Prothrombin Time w/INRon INR Coag (PPP) [Relative time] 1.2 {INR} Normal [facility] Comment on above: Performed By: #### L [id number] ####[facility] [id number] [place], [place], [id number] PT Coag (PPP) [Time] 15.5 s High 11.7-14.9 [facility] Comment on above: Performed By: #### L 300.3900 ####[facility] [id number] [place], [address] Prothrombin timeOrdered By: Ron Mariscal on 08-23-2024 PT Coag (PPP) [Time] 15.5 s High 11.7-14.9 [facility] RBC Auto (Bld) [#/Vol]Ordere d By: Ron Mariscal on 08-23-2024 RBC (Bld) [#/Vol] 3.52 10*6/uL Low 4.2-5.4 [facility] Serum creatinine measurement (mass/volume)Ordered By: Ron Mariscal on 08-23-2024 Creatinine [Mass/Vol] 0.63 mg/dL Low 0.70-1.20 [facility] Serum glucose measurement (m ass/volume)Ordered By: Ron Mariscal on 08-23-2024 Glucose [Mass/Vol] 116 mg/dL High 70-[address] [facility] Serum or plasma calcium monica urement (mass/volume)Ordered By: Ron Mariscal on 08-23-2024 Calcium [Mass/Vol] 9.2 mg/dL 7.6-11.[address] [facility] Serum or plasma creatine kin ase activityOrdered By: Ron Mariscal on 08-23-2024 CK [Catalytic activity/Vol] 128 U/L 24-195 [facility] Serum or plasma urea nitroge n measurement (mass/volume)Ordered By: Ron Mariscal on 08-23-2024 Urea nitrogen [Mass/Vol] 22 mg/dL High 4-19 [facility] Sodium levelOrdered By: Cordell Mariscal on 08-23-2024 Sodium [Moles/Vol] 140 mmol/L 133-[address] [facility] White blood cell (WBC) count Ordered By: Ron Mariscal on 08-23-2024 WBC (Bld) [#/Vol] 7.9 10*3/uL 4.4-11.[address] [facility] Wrist min 3 Viewson 08-24-19 25 Wrist min 3 Views [facility] [address] [place] [address] Wrist min 3 Views MR#: [id number] Acct: [id number] Name: HAYDEE BUSTAMANTE Rep #: [id number] : 1945 F 79 From: Jasmyn Herrera MD PCP: Dr. Claudine Durán MD Status: [facility] ER Study: Wrist min 3 Views Date of Exam: 08/23/24 Exam# [id number] Ordering Dr: Ron Mariscal MD EXAM: XR Left Wrist Complete, 3 or More Views CLINICAL INDICATION: INJURY TECHNIQUE: Frontal, lateral and oblique views of the left wrist. COMPARISON: No relevant prior studies available. FINDINGS: BONES/JOINTS: Comminuted impacted fracture of the distal radius with intra-articular extension. No dislocation. SOFT TISSUES: Soft tissue swelling. No radiopaque foreign body. RAD/Wrist min 3 Views IMPRESSION: Comminuted impacted fracture of the distal radius with intra-articular extension. Reading Location: [facility] CC: Dr. Ron Mariscal MD; Dr. Claudine Durán MD Inspector Precision: Signed Normal [facility] No Panel InformationOrdered By: Santos Guillory on 08-21-2024 [facility] Cardiac Rehab [address] [place] [address] CR - Individual Treatment Plan MR#: [id number] Acct: [id number] Name: HAYDEE BUSTAMANTE Rep #:[id number] : 1945 79 From: Santos Rubalcava BS, RVT PCP: Dr. Claudine Durán MD DOS: 04/15 Exercise - Initial Assessment Physician Prescribed Exercise Modalities: Treadmill, SciFit Stepper and SciFit Pro-II Ergometer Nutrition - Initial Assessment Weight Mgt (Other Care) Height: 5 ft 3 in Weight:: 131 lb 8 oz BMI: 23.3 Psychosocial - Initial Assess Target Goals Target Goals Referral to Behavioral Health PS - Interventions: Yes: Attend Stress Management Classes Patient Health Questionnaire PHQ-9 Screening 90-Day Re-eval Assessment: 1. Little interest or pleasure [...] all Total Score: 1 Self-Efficacy 6-Item Scale 90-Day Re-eval Assessment: We would like to know [...] SciFit Pro-II Ergometer Exercise - 60-day Assessment Physician Prescribed Exercise Modalities: Treadmill, SciFit Stepper and SciFit Pro-II Ergometer Exercise - 90-day Assessment Visit Date of Eval: 08/21/24 Session #:: 33 Physician Prescribed Exercise Modalities: Treadmill, SciFit Stepper and SciFit Pro-II Ergometer Frequency: 3x/week for 12 weeks [36 sessions] Intensity: 60-80% of age predicted maximum heart rate reserve Duration: 30 - 45 minutes Current METSs:: 8.2 Target Heart Rate:: 86-114 Maximum Excercise HR:: 129 Resting Blood Pressure: 122/64 Maximum Exercise Blood Pressure: 144/80 EKG Type: NSR to St with a rare PAC, PVC Outcomes & Goals Goals:: Verbalizes understanding of [...] See below 30-day Reassessments 30 day Reassessments:: Met Reassessment Notes & Comments:: Pt has 3 sessions remaining. Pt is working at 8.2 METS. Upon graduation pt will be given her exercise prescription as well ascommunity resources to continue his exercise. Exercise - Final/Discharge Physician Prescribed Exercise Modalities: Treadmill, SciFit Stepper and SciFit Pro-II Ergometer Nutrition - 30-Day Assessment Weight Mgt (Other Care) Height: 5 ft 3 in Weight:: 131 lb 8 oz BMI: 23.3 Nutrition - 60-Day Assessment Weight Mgt (Other Care) Height: 5 ft 3 in Weight:: 131 lb 8 oz BMI: 23.3 Core - 30-Day Assessment Hypertension [place] [employer] Hypertension Guidelines Reassessment Notes & Comments:: Pt's BP's are within AHA normal limits on some days Core - Final Assessment Hypertension [place] [employer] Hypertension Guidelines Reassessment Notes & Comments:: Pt (more content not included)... [facility] No Panel InformationOrdered By: Santos Guillory on 07-24-2024 [facility] Cardiac Rehab [address] [place] [address] CR - Individual Treatment Plan MR#: [id number] Acct: [id number] Name: HAYDEE BUSTAMANTE Rep #:[id number] : 1945 79 From: Santos Rubalcava BS, RVT PCP: Dr. Claudine Durán MD DOS: 06/13 Exercise - Initial Assessment Physician Prescribed Exercise Modalities: Treadmill, SciFit Stepper and SciFit Pro-II Ergometer Nutrition - Initial Assessment Weight Mgt (Other Care) Height: 5 ft 3 in Weight:: 133 lb BMI: 23.6 Core - Initial Assessment Hypertension Resting Blood Pressure:: 132/70 [place] [employer] Hypertension Guidelines Psychosocial - Initial [...] modify LDL go (more content not included)... [facility] No Panel InformationOrdered By: Santos Guillory on 06-27-2024 [facility] Cardiac Rehab [address] [place] [address] CR - Individual Treatment Plan MR#: [id number] Acct: [id number] Name: HAYDEE BUSTAMANTE Rep #:[id number] : 1945 79 From: Santos Rubalcava BS, [...] Session 10,Verbalizes symptom (more content not included)... [facility] 12 Lead EKG performed by [facility] on 06-20-2024 12 Lead EKG performed by [facility] [address] [place] [address] 12 Lead EKG performed by [facility] 06/20/24 1547 MR#: [id number] Acct: [id number] Name: HAYDEE BUSTAMANTE Rep #: [id number] : 1945 79 From: Diaz Puckett MD Attending Dr: Dr. Diaz Puckett MD Status: DE P AMB Ordering Dr: Diaz Puckett MD Date: 06/20/24 Location: [facility] Sex: F C Admitted: [facility]/12 Lead EKG performed by [facility] ECG Report Interpretation S inus Rhythm - occasional PAC # PACs = 1.-Combined atrial enlargement. Low voltage -possible pulmonary disease. ABNORMAL Electronically signed on 06/20/2024 at 12:[address] Diaz Puckett [employer] Version 8610 06/20/24 1229 Date Diaz Puckett MD CC: Dr. Claudine Durán MD Date Dictated: 06/20/24 154 Date Transcribed: 06/20/241546 Inspector Precision: Signed Normal [facility] Cardiology Visit Reporton Cardiology Visit Report [facility] [address] [place] [address] OFFICE VISIT Date of Service: 06/20/24 MR#: [id number] Acct: [id number] Name: HAYDEE BUSTAMANTE Rep #: [id number] : 1945 Provider: Dr. Diaz dickson MD Age/Sex: 79/F Location: [facility] Status: Signed HPI HPI History of Present Illness Details: Patient is a 79-year-old white female comes in today for new patient visit. Patient is routinely cared for in the [facility] system where she had her TAVR April 2024. Patient carries a history of critical aortic stenosis status post TAVR April 2024 at [facility] follow-up echo showed a peak gradient of [...] had been in outpatient rehab here at [facility] which she is tolerating without incident. The patient was not aware of her SBE prophylaxis needs given her bioprosthetic valve. She is allergic to penicillin but has not ever taken clindamycin to her knowledge. The patient is scheduled to follow-up with the [facility] in the next few weeks. She is wishing to transfer her care primarily to the [facility] once she is released from the [facility] in their TAVR program. 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 Normal [facility] CR - History AND Physicalon 05-28-2024 CR - History & Physical [facility] Cardiac Rehab [address] [place] [address] CR - History Physical MR#: [id number] Acct: [id number] Name: HAYDEE BUSTAMANTE Rep #: [id number] : 1945 78 From: Santos Rubalcava BS, [...] tab PO DAILY supplement 4 tablet) vitamins A,C,Y-imqe-qeipjr 2,148 2 tab PO BID eye health [...] tabs Instructions: ON HOLD FOR COLONOSCOPY omega 1-axq-pyj-fish oil 1,200 mg 1 cap PO DAILY [...] Do you have a Healthcare Power of Sales Incentive Analyst?: Yes Living Will: Yes Advance Directives Information [...] 100/54 P (more content not included)... Normal [facility] Cardiac rehabilitation evalu ation reportOrdered By: Santos Guillory on 05-28-2024 Study report [facility] Cardiac Rehab [address] [place] [address] CR - History & Physical MR#: [id number] Acct: [id number] Name: HAYDEE BUSTAMANTE Rep #:[id number] : 1945 78 From: Santos Rubalcava BS, [...] PO DAILY suppl ement 03/19/23 tablet) vitamins A,C,P-wajc-hjsfsp 2,148 2 tab PO BID eye heal th 03/19/23 mcg-113 mg-45 mg-17.4 mg tablet (PreserVision AREDS) gabapentin 300 mg capsule 300 mg PO Q12 nerve pain #0 caps 04/05/23 acetaminophen 500 mg tablet 1,000 mg (2 x 500 mg) PO Q 6H PRN 04/27/23 PRN Pain Score 1-10 #0 tabs potassium chloride 20 mEq 20 meq PO BIDCM #0 tabs 0310/12 tablet,extended release(part/cryst) fluticasone 250 mcg-salmeterol 50 1 [...] tabs Instructions: ON HOLD FOR COLONOSCOPY omega 4-tri-pbx-fish oil 1,200 mg 1 cap PO DAILY [...] Do you have a Healthcare Power of Sales Incentive Analyst?: Yes Living Will: Yes Advance Directives Information [...] for Smoking and (more content not included)... [facility] No Panel InformationOrdered By: Santos Guillory on 05-28-2024 [facility] Cardiac Rehab [address] [facility] [place] [address] CR - Individual Treatment Plan MR#: [id number] Acct: [id number] Name: HAYDEE BUSTAMANTE Rep #:[id number] : 1945 78 From: Santos Rubalcava BS, [...] Referral to Physical Therapy: No Referral to [facility] Case Management: No Fall Risk Assessed:: [...] SciFit Stepper, SciFit Pro-II Ergometerand SciFit Lateral [place] Frequency: 3x/week for 12 weeks [36 sessions] [...] rehaband Other additional (more content not included)... [facility] XR Chest PA and Lateralon Radiology Study observation (narrative) [facility] IMPRESSION: See result. Inspector Precision: KRYSTAL Transcribe Date/Time: Apr 30 2024 11:46A Dictated by : ABIGAIL ODOM MD This examination was interpreted and the report reviewed and electronically signed by: ABIGAIL ODOM MD on Apr 30 2024 11:47AM [facility] DIVISION OF RADIOLOGY * * *Final [...] soft tissues: Unremarkable. DIVISION OF RADIOLOGY Provider, Afia Nina [facility] - 04/30/2024 * * *Final Report* [...] soft tissues: Unremarkable. IMPRESSION IMPRESSION: See result. Inspector Precision: KRYSTAL Transcribe Date/Time: Apr 30 2024 11:46A Dictated by : ABIGAIL ODOM MD This examination was interpreted and the report reviewed and electronically signed by: ABIGAIL ODOM MD on Apr 30 2024 11:47AM EST [facility] XR Chest PA and LateralOrder ed By: Ccf Provider on 04-30-2024 [facility] SPECT Heart for infarct W Tc -99m PYP IVOrdered By: [facility] Provider on 03-25-2024 Interpretation and review of laboratory results Abnormal [facility] Radiology Result ACTIONABLE Abnormal [facility] Comment on above: This report contains [...] contact your provider for the next steps. [facility] SPECT Heart for infarct W Tc -99m PYP Komal 03-25-2024 * * *Final Report* * * DATE OF EXAM: Mar 25 2024 12:13PM [facility] 0847 - [place] CARDIAC AMYLOID SPECT/CT / PROCEDURE REASON: Nonrheumatic aortic valve stenosis * * * * Physician Interpretation * * * * [place] CTAC Report: [facility] [place] Date of service: 03/25/2024 11:41:51 AM CTAC [...] See administered radiotracer and dose below. [facility] [place] Date of service: 03/25/2024 11:41:51 AM Ordering [...] * * Final * * * RP Inspector Precision: BELEN Transcribe Date/Time: Mar 25 2024 11:41A Dictated by : ROB MARCELO MD This examination was interpreted and the report reviewed and electronically signed by: ROB MARCELO MD on Mar 25 2024 12:19PM [facility] DIVISION OF RADIOLOGY Provider, [facility] - 03/25/2024 * * *Final Report* * * DATE OF EXAM: Mar 25 2024 12:13PM [facility] 0847 - [place] CARDIAC AMYLOID SPECT/CT / PROCEDURE REASON: Nonrheumatic aortic valve stenosis * * * * Physician Interpretation * * * * [place] CTA Report: [facility] Date of service: 03/25/2024 11:41:51 AM CTAC [...] See administered radiotracer and dose below. [facility] [place] Date of service: 03/25/2024 11:41:51 AM Ordering [...] * * Final * * * RP Inspector Precision: BELEN Transcribe Date/Time: Mar 25 2024 11:41A Dictated by : ROB MARCELO MD This examination was interpreted and the report reviewed and electronically signed by: ROB MARCELO MD on Mar 25 2024 12:19PM EST [facility] Radiology [facility]narrative[facility] CREATININE, BLOOD (POC)on Creatinine [Mass/Vol] 0.60 mg/dL Abnormal 0.7 - 1.4 mg/dL [facility] eGFR (POCT) mL/min/1.7 3 m2 [facility] Interpretation and review of laboratory results Abnormal [facility] Location:Radiology [facility], [address] [place] [address], [address] [place] [address] POINT OF CARE [facility] CTA Abdominal vessels and Pe lvis vessels W contrast Komal 03-21-2024 * * *Final Report* * * DATE OF EXAM: Mar 21 2024 10:56AM J 0311 - CTA ABD/PELV W IVCON / [...] AORTIC DIMENSIONS: AORTIC ROOT: 3.5 cm measured mcrme-eo-gzmjt STJ: 2.5 cm mid ASCENDING THORACIC AORTA: [...] lumbar spine. Anterolisthesis of L4 over L5 Crown Presser (topogram) images: No additional findings. DIVISION OF RADIOLOGY Provider, Afia Nina [facility] - 03/21/2024 * * *Final Report* [...] AORTIC DIMENSIONS: AORTIC ROOT: 3.5 cm measured lfaso-so-iyefs STJ: 2.5 cm mid ASCENDING THORACIC AORTA: [...] lumbar spine. Anterolisthesis of L4 over L5 Crown Presser (topogram) images: (more content not included)... [facility] Radiology Study observation (narrative) [facility] CTA Chest vessels W contrast Komal [...] AORTIC DIMENSIONS: AORTIC ROOT: 3.5 cm measured begps-qd-bjozb STJ: 2.5 cm mid ASCENDING THORACIC AORTA: [...] lumbar spine. Anterolisthesis of L4 over L5 Crown Presser (topogram) images: No additional findings. DIVISION OF RADIOLOGY Provider, [facility] * * *Final Report* [...] AORTIC DIMENSIONS: AORTIC ROOT: 3.5 cm measured eplya-nx-lllxb STJ: 2.5 cm mid ASCENDING THORACIC AORTA: [...] lumbar spine. Anterolisthesis of L4 over L5 Crown Presser (topogram) im (more content not included)... [facility] Radiology Study observation (narrative) [facility] Panel Informationon 03-21 IMPRESSION: Aortic Annulus and valve anatomy as described above Normal thoracic and abdomiinal aorta.Atherosclerotic changes as in the body of the report.Minimum luminal diameter throughout: 7 mm Inspector Precision: KRYSTAL Transcribe Date/Time: Mar 21 2024 11:22A Dictated by : CALIXTO BLACKWOOD MD This examination was interpreted and the report reviewed and electronically signed by: CALIXTO BLACKWOOD MD on Mar 21 2024 12:53PM EST DIVISION OF RADIOLOGY No Panel InformationOrdered By: Ccf Provider on 03-21-2024 [facility] XR Chest PA and Lateralon IMPRESSION: See result Inspector Precision: KRYSTAL Transcribe Date/Time: Mar 21 2024 12:02P [...] Decreased bone density DIVISION OF RADIOLOGY Provider, [facility] - 03/21/2024 * * *Final [...] Decreased bone density IMPRESSION IMPRESSION: See result Inspector Precision: KRYSTAL Transcribe Date/Time: Mar 21 2024 12:02P Dictated by : JACKELINE SCHULER MD This examination was interpreted and the report reviewed and electronically signed by: JACKELINE SCHULER MD on Mar 21 2024 12:04PM [facility] Radiology Study observation (narrative) Christiane castañeda [facility] XR Chest PA and LateralOrder ed By: Ccf Provider on 03-21-2024 [facility] CNPNon 01-04-2024 CNPN Telephone (AKPRAD) ROBBYHAYDEE L ([id number]) 1945 F T Date Time Provider Department 01/04/24 GENO HART [...] (FLONASE) 50 mcg/actuation nasal spray Use 1 [place] in each nostril once daily. - pantoprazole DR (PROTONIX) 40 mg tablet Take 1 tablet by mouth once daily. - vit A,C,V-Gftp-Rhqhkg (OCUVITE PRESERVISION) 2,148 mcg-113 mg-45 mg-17.4mg tab [...] by this patient by: PATIENT Muna Harris (Ceramic Design Engineer) [facility] for emt intermediate medications. Problem List As Of Date 12/20 (more content not included)... Normal [facility] HISTOPLASMA AG URINEOrdered By: Cabrera Duggan on 12-21-2023 H. capsulatum Ag (U) [Mass/Vol] ng/mL NINF - 0.2 ng/mL [facility] H. capsulatum Ag IA Ql (U) Negative Negative [facility] Comment on above: Histoplasma galactom adilene antigen, urine test is used as an aid in diagnosing histoplasmosis. A negative result cannot rule out infection. Low positive results may at times be due to cross-reactivity with Blastomyces, Talaromyces marneffei, Paracoccidioides, and some Wendy species. Clinical radiological, and epidemiological correlation is required. Interpretation and review of laboratory results Normal [facility] ITRACONAZOLE BLOODOrdered By : Elvira Cronin on 12-21-2023 Hydroxyitraconazole 1.1 ug/mL [facility] Comment on above: Ranges are based [...] of Aspergillosis and Candidiasis and consultation from [facility]'s Department of Infectious Disease. Reference ranges and high/low indicator flags are provided as general guidelines only. The treating physician must determine appropriate target levels/dosing based on the specific clinical situation. This test was developed, and its performance characteristics determined by the [facility] Department of Pathology and Laboratory Medicine. It has not been cleared or approved by the FDA. The [facility] Department of Pathology and Laboratory Medicine is regulated under CLIA as qualified to perform high-complexity testing. This test is used for clinical purposes. It should not be regarded as investigational or for research. Itraconazole 0.8 ug/mL 0.6 - 2.9 ug/mL [facility] Hepatic function 2000 panelo n 12-20-2023 Albumin [Mass/Vol] 3.7 g/dL Low 3.9 - 4.9 g/dL [facility] ALP [Catalytic activity/Vol] 95 U/L 34 - 123 U/L [facility] ALT [Catalytic activity/Vol] 19 U/L 7 - 38 U/L [facility] AST [Catalytic activity/Vol] 20 U/L 13 - 35 U/L [facility] Bilirubin [Mass/Vol] 0.6 mg/dL 0.2 - 1 .3 mg/dL [facility] Bilirubin.conjugated [Mass/Vol] 0.2 mg/dL High [facility] - 0.2 mg/dL [facility] Interpretation and review of laboratory results Abnormal [facility] Protein [Mass/Vol] 7.0 g/dL 6.3 - 8.0 g/dL [facility] CBC W Auto Differential pane l (Bld)on 10-11-2023 Basophils (Bld) [#/Vol] 0.05 10*3/uL [facility] Basophils/100 WBC (Bld) 0.5 % C [facility] Differential cell count method Nom (Bld) Auto [facility] Eosinophils (Bld) [#/Vol] 0.12 10*3/uL [facility] Eosinophils/100 WBC (Bld) 1.2 % [facility] Erythrocyte distribution width (RBC) [Ratio] 16.8 % High 11.5 - 15.0 % [facility] Hematocrit (Bld) [Volume fraction] 32.4 % Low 36.0 - 46.0 % [facility] Hemoglobin (Bld) [Mass/Vol] 10.1 g/dL Low 11.5 - 15.5 g/dL [facility] Immature granulocytes (Bld) [#/Vol] 0.05 10*3/uL [facility] Immature granulocytes/100 WBC (Bld) 0.5 % [facility] Interpretation and review of laboratory results Abnormal [facility] Lymphocytes (Bld) [#/Vol] 1.31 10*3/uL [facility] Lymphocytes/100 WBC (Bld) 13.3 % [facility] MCH (RBC) [Entitic mass] 26.9 pg 26.0 - 34.0 pg [facility] MCHC (RBC) [Mass/Vol] 31.2 g/dL 30.5 - 36.0 g/dL [facility] MCV (RBC) [Entitic vol] 86.4 fL 80.0 - 100.0 fL [facility] Monocytes (Bld) [#/Vol] 1.00 10*3/uL High [facility] Monocytes/100 WBC (Bld) 10.2 % C [facility] Neutrophils (Bld) [#/Vol] 7.32 10*3/uL [facility] Neutrophils/100 WBC (Bld) 74.3 % [facility] Nucleated RBC (Bld) [#/Vol] NINF [facility] Nucleated RBC/100 WBC (Bld) [Ratio] 0.0 % /100 WBC [facility] Platelet mean volume (Bld) [Entitic vol] 11.6 fL 9.0 - 12.7 fL [facility] Platelets (Bld) [#/Vol] 349 10*3/uL [facility] RBC (Bld) [#/Vol] 3.75 10*6/uL Low 3.90 - 5.20 m/uL [facility] WBC (Bld) [#/Vol] 9.85 10*3/uL [facility] Comprehensive metabolic 2000 panelon 10-11-2023 Albumin [Mass/Vol] 3.9 g/dL 3.9 - 4.9 g/dL [facility] ALP [Catalytic activity/Vol] 111 U/L 34 - 123 U/L [facility] ALT [Catalytic activity/Vol] 22 U/L 7 - 38 U/L [facility] Anion gap [Moles/Vol] 11 mmol/L 8 - 15 mmol/L [facility] AST [Catalytic activity/Vol] 23 U/L 13 - 35 U/L [facility] Bilirubin [Mass/Vol] 0.3 mg/dL 0.2 - 1 .3 mg/dL [facility] Calcium [Mass/Vol] 9.4 mg/dL 8.5 - 10. 2 mg/dL [facility] Chloride [Moles/Vol] 99 mmol/L 98 - 10 7 mmol/L [facility] CO2 [Moles/Vol] 24 mmol/L 22 - 30 mmol/L [facility] Creatinine [Mass/Vol] 0.59 mg/dL 0.58 - 0.96 mg/dL [facility] GFR/1.73 sq M.predicted among non-blacks MDRD (S/P/Bld) [Vol rate/Area] 94 mL/min/{1.73_m2} - PINF [facility] Comment on above: Estimated Glomerular Filtration Rate [...] [Mass/Vol] 76 mg/dL 74 - 99 mg/dL [facility] Comment on above: The [place] Diab[employer] Association (ADA) provides guidance for [...] Standards of Medical Care in Diabetes 2016, [place] [employer]. Diabetes Care. 2016.39(Suppl 1). Interpretation and review of laboratory results Abnormal [facility] Potassium [Moles/Vol] 5.1 mmol/L 3.7 - 5.1 mmol/L [facility] Protein [Mass/Vol] 7.6 g/dL 6.3 - 8.0 g/dL [facility] Sodium [Moles/Vol] 134 mmol/L Low 136 - 144 mmol/L [facility] Urea nitrogen [Mass/Vol] 26 mg/dL High 7 - 21 mg/dL [facility] HISTOPLASMA AB CFon 09-02-19 24 H. capsulatum mycelial phase Ab CF (S) [Titer] <1:8 [facility] Comment on above: INTERPRETIVE INFORMA TION: Histoplasma Mycelia Antibodies by CF A titer of 1:8 or greater is generally considered presumptive evidence of histoplasmosis. A titer of 1:32 or greater or rising titers indicate strong presumptive evidence of histoplasmosis. Cross reactions, usually at lower titers, may occur with other fungal diseases. H. capsulatum yeast phase Ab CF (S) [Titer] <1:8 [facility] Comment on above: INTERPRETIVE INFORMA TION: Histoplasma Yeast Antibodies by CF A titer of 1:8 or greater is generally considered presumptive evidence of histoplasmosis. A titer of 1:32 or greater or rising titers indicate strong presumptive evidence of histoplasmosis. Cross reactions, usually at lower titers, may occur with other fungal diseases. Performed By: [facility] [address] [place], [place] [id number] [employer] Applier: Ernie Issa MD, PhD CLIA Number: [id number] [facility] HISTOPLASMA AG URINEOrdered By: Maricarmen Call on 08-31-2023 H. capsulatum Ag (U) [Mass/Vol] 0.4 ng/mL High NINF - 0.2 ng/mL [facility] H. capsulatum Ag IA Ql (U) Positive Abnormal Negative [facility] Comment on above: Histoplasma galactom adilene antigen, urine test is used as an aid in diagnosing histoplasmosis. A negative result cannot rule out infection. Low positive results may at times be due to cross-reactivity with Blastomyces, Talaromyces marneffei, Paracoccidioides, and some Wendy species. Clinical radiological, and epidemiological correlation is required. Interpretation and review of laboratory results Abnormal [facility] ITRACONAZOLE BLOODOrdered By : Elvira Cronin on 08-31-2023 Hydroxyitraconazole 2.4 ug/mL [facility] Comment on above: Ranges are based [...] of Aspergillosis and Candidiasis and consultation from [facility]'s Department of Infectious Disease. Reference ranges and high/low indicator flags are provided as general guidelines only. The treating physician must determine appropriate target levels/dosing based on the specific clinical situation. This test was developed and its performance characteristics determined by [facility]'s [facility] Pathology and Laboratory Medicine [place] ([facility] It has not been cleared or approved by the FDA. -[facility] is regulated under CLIA as qualified to perform high-complexity testing. This test is used for clinical purposes. It should not be regarded as investigational or for research. Itraconazole 1.3 ug/mL 0.6 - 2.9 ug/mL [facility] CNOVon 08-27-2023 CNOV Office Visit (CARMED ) HAYDEE BUSTAMANTE ([id number]) 1945 F [facility] Date Time Provider Department 08/27/23 8:20 AM WILLIAM MESSINA During your visit today, we recorded the following information about you: Pulse Blood pressure Weight Height 81/minute 116/68 58.1 kg 1.6 m William Messina DO 08/27/2023 2:47 PM Signed [facility] OUTPATIENT VISIT DATE August 27, 2023 PRIMARY CARE PHYSICIAN: Claudine Durán [address] [place] [address] HISTORY OF PRESENT ILLNESS: Ms. Bustamante is [...] Diverticulosis DVT, recurrent, lower extremity, acute ([facility]) 12/10/2014 Esophageal reflux Hiatal hernia 02/25/2018 Hypertension Lung nodule Personal history of unspecified urinary disorder Rheumatoid arthritis involving multiple sites with positive rheumatoid factor ([facility]) 03/07/2015 Dr. Hurley ([facility]) (more content not included)... [facility] 08-27-2023 [place] Telephone ([employer]) HAYDEE BUSTAMANTE ([id number]) 1945 F T Date Time Provider Department [...] (FLONASE) 50 mcg/actuation nasal spray Use 1 [place] in each nostril once daily. - pantoprazole DR (PROTONIX) 40 mg tablet Take 1 tablet by mouth once daily. - vit A,C,R-Omlf-Kyeraf (OCUVITE PRESERVISION) 2,148 mcg-113 mg-45 mg-17.4mg tab [...] by this patient by: PATIENT Muna Harris (Ceramic Design Engineer) [facility] for emt intermediate medications. Problem List As Of Date 08/27/2023 [...] stenosis [I35.0 (more content not included)... Normal [facility] CBC W Auto Differential pane l (Bld)on 08-22-2023 Basophils (Bld) [#/Vol] 0.04 10*3/uL [facility] Basophils/100 WBC (Bld) 0.5 % C [facility] Differential cell count method Nom (Bld) Auto [facility] Eosinophils (Bld) [#/Vol] 0.08 10*3/uL [facility] Eosinophils/100 WBC (Bld) 1.0 % [facility] Erythrocyte distribution width (RBC) [Ratio] 17.4 % High 11.5 - 15.0 % [facility] Hematocrit (Bld) [Volume fraction] 28.5 % Low 36.0 - 46.0 % [facility] Hemoglobin (Bld) [Mass/Vol] 9.1 g/dL Low 11.5 - 15.5 g/dL [facility] Immature granulocytes (Bld) [#/Vol] 0.04 10*3/uL [facility] Immature granulocytes/100 WBC (Bld) 0.5 % [facility] Interpretation and review of laboratory results Abnormal [facility] Lymphocytes (Bld) [#/Vol] 0.93 10*3/uL Low [facility] Lymphocytes/100 WBC (Bld) 11.6 % [facility] MCH (RBC) [Entitic mass] 29.0 pg 26.0 - 34.0 pg [facility] MCHC (RBC) [Mass/Vol] 31.9 g/dL 30.5 - 36.0 g/dL [facility] MCV (RBC) [Entitic vol] 90.8 fL 80.0 - 100.0 fL [facility] Monocytes (Bld) [#/Vol] 0.72 10*3/uL [facility] Monocytes/100 WBC (Bld) 9.0 % C [facility] Neutrophils (Bld) [#/Vol] 6.19 10*3/uL [facility] Neutrophils/100 WBC (Bld) 77.4 % [facility] Nucleated RBC (Bld) [#/Vol] NINF [facility] Nucleated RBC/100 WBC (Bld) [Ratio] 0.0 % /100 WBC [facility] Platelet mean volume (Bld) [Entitic vol] 10.8 fL 9.0 - 12.7 fL [facility] Platelets (Bld) [#/Vol] 293 10*3/uL [facility] RBC (Bld) [#/Vol] 3.14 10*6/uL Low 3.90 - 5.20 m/uL [facility] WBC (Bld) [#/Vol] 8.00 10*3/uL [facility] Comprehensive metabolic 2000 panelOrdered By: Adri Cabrera on 08-22-2023 Albumin [Mass/Vol] 3.2 g/dL Low 3.9 - 4.9 g/dL [facility] ALP [Catalytic activity/Vol] 97 U/L 34 - 123 U/L [facility] ALT [Catalytic activity/Vol] 20 U/L 7 - 38 U/L [facility] Anion gap [Moles/Vol] 10 mmol/L 8 - 15 mmol/L [facility] AST [Catalytic activity/Vol] 25 U/L 13 - 35 U/L [facility] Bilirubin [Mass/Vol] 0.4 mg/dL 0.2 - 1 .3 mg/dL [facility] Calcium [Mass/Vol] 8.5 mg/dL 8.5 - 10. 2 mg/dL [facility] Chloride [Moles/Vol] 103 mmol/L 98 - 10 7 mmol/L [facility] CO2 [Moles/Vol] 26 mmol/L 22 - 30 mmol/L [facility] Creatinine [Mass/Vol] 0.55 mg/dL Low 0.58 - 0.96 mg/dL [facility] GFR/1.73 sq M.predicted among non-blacks MDRD (S/P/Bld) [Vol rate/Area] 95 mL/min/{1.73_m2} - PINF [facility] Comment on above: Estimated Glomerular Filtration Rate [...] [Mass/Vol] 82 mg/dL 74 - 99 mg/dL [facility] Comment on above: The [place] Diab[employer] Association (ADA) provides guidance for [...] Standards of Medical Care in Diabetes 2016, [place] [employer]. Diabetes Care. 2016.39(Suppl 1). Interpretation and review of laboratory results Abnormal [facility] Potassium [Moles/Vol] 3.3 mmol/L Low 3.7 - 5.1 mmol/L [facility] Protein [Mass/Vol] 5.8 g/dL Low 6.3 - 8.0 g/dL [facility] Sodium [Moles/Vol] 139 mmol/L 136 - 144 mmol/L [facility] Urea nitrogen [Mass/Vol] 16 mg/dL 7 - 21 mg/dL [facility] INR (POC)on 08-22-2023 INR Coag (PPP) [Relative time] 1.1 {INR} 0.8 - 1.2 [facility] Internal Quality Check Acceptable [facility] Location:[facility], [address] [place] [address], [place], [address] [facility] POINT OF CARE [facility] No Panel InformationOrdered By: Zaynab Pina on 05-31-2023 29.8 SECONDS 11.7-14.9 [facility] 2.9 [facility] Absolute lymphocyte countOrd ered By: Zaynab Pina on 05-29-2023 Lymphocytes Auto (Unsp spec) [#/Vol] 1.06 10*3/uL 0.83-4.51 [facility] Automated lymphocyte count a s percentage of total leukocytesOrdered By: Zaynab Pina on 05-29-2023 Lymphocytes/100 WBC Auto (Unsp spec) 17.1 % 19-41 [facility] Basophil percentageOrdered B y: Claudiotanjoesph Cherrynatiloly on 05-29-2023 Basophil percentage 9.8 g/dL 12.0-15.0 [facility] Basophil percentage 80 mg/dL 74-106 [facility] Basophil percentage 139 mmol/L 136-145 [facility] Basophil percentage 3.4 mmol/L 3.5-5.1 [facility] Basophil percentage 106 mmol/L 98-107 [facility] Basophils (Bld) [#/Vol] 6.2 10*3/uL 4.4-11.0 [facility] Basophils (Bld) [#/Vol] 4.1 10*3/uL 2.0-7.7 [facility] Basophils/100 WBC (Bld) 66.4 % 47-70 [facility] Basophils/100 WBC (Bld) 12.3 % 0-10 [facility] Basophils/100 WBC (Bld) 3.2 % 0-5 [facility] Basophils/100 WBC (Bld) 0.5 % 0-1 [facility] Determination of erythrocyte mean corpuscular volume (MCV)Ordered By: Zaynab Pina on 05-29-2023 MCV (RBC) [Entitic vol] 81.1 fL 81-99 [facility] Erythrocyte distribution wid th ratioOrdered By: Zaynab Pina on 05-29-2023 Erythrocyte distribution width (RBC) [Ratio] 17.6 % 11.6-14.6 [facility] Erythrocyte distribution wid th standard deviationOrdered By: Zaynab Pina on 05-29-2023 Erythrocyte distribution width (RBC) [Entitic vol] 52.1 fL 35.1-43.9 [facility] Hematocrit Auto (Bld) [Volum e fraction]Ordered By: Zaynab Pina on 05-29-2023 Hematocrit (Bld) [Volume fraction] 30.8 % 37-47 [facility] Immature granulocytes/100 WB C Auto (Bld)Ordered By: Zaynab Pina on 05-29-2023 Immature granulocytes/100 WBC (Bld) 0.500 % 0.0-0.9 [facility] No Panel InformationOrdered By: Zaynab Pian on 05-29-2023 25.8 pg 27.0-32.0 [facility] 31.8 g/dL 32-36 [facility] 194 K/mm3 150-450 [facility] 11.0 fl 6.2-12.0 [facility] 0 % 0-5 [facility] 116 mL/min >60 [facility] 141 mL/min >60 [facility] 29.6 RATIO 10-20 [facility] 28.0 mmol/L 21.0-32.0 [facility] RBC Auto (Bld) [#/Vol]Ordere d By: Zaynab Pina on 05-29-2023 RBC (Bld) [#/Vol] 3.80 10*6/uL 4.2-5.4 [facility] Serum or plasma calcium monica urement (mass/volume)Ordered By: Zaynab Pina on 05-29-2023 Calcium [Mass/Vol] 8.4 mg/dL 8.5-10.[address] [facility] Serum or plasma creatinine m easurement (mass/volume)Ordered By: Zaynab Pina on 05-29-2023 Creatinine [Mass/Vol] 0.54 mg/dL 0.55-1.02 [facility] Serum or plasma urea nitroge n measurement (mass/volume)Ordered By: Zaynab Pina on 05-29-2023 Urea nitrogen [Mass/Vol] 16 mg/dL 7-18 [facility] Thin prep Papanicolaou smear with manual screeningOrdered By: Zaynab Pina on 05-29-2023 Thin prep Papanicolaou smear with manual screening 5 5-15 [facility] No Panel InformationOrdered By: Zaynab Pina on 05-28-2023 30.6 SECONDS 11.7-14.9 [facility] 3.0 [facility] Capillary blood internationa l normalized ratio (INR)Ordered By: Zaynab Pina on 05-24-2023 INR Coag (BldC) [Relative time] 1.9 [facility] Whole blood prothrombin time Ordered By: Claudiotanjoesph Cherrynatiloly on 05-24-2023 PT Coag (Bld) [Time] 20.2 s 11.7-14.9 [facility] Capillary blood internationa l normalized ratio (INR)Ordered By: Claudiotanjoesph Cherrynatiloly on 05-21-2023 INR Coag (BldC) [Relative time] 2.8 [facility] Whole blood prothrombin time Ordered By: Claudiotanjoesph Cherrynatiloly on 05-21-2023 PT Coag (Bld) [Time] 28.8 s 11.7-14.9 [facility] Capillary blood internationa l normalized ratio (INR)Ordered By: Christineelmertanjoesph Cherrynatiloly on 05-17-2023 INR Coag (BldC) [Relative time] 3.0 [facility] Whole blood prothrombin time Ordered By: Claudiotanjoesph Cherrynatiloly on 05-17-2023 PT Coag (Bld) [Time] 30.2 s 11.7-14.9 [facility] Absolute lymphocyte countOrd ered By: Zaynab Alvesloly on 05-15-2023 Lymphocytes Auto (Unsp spec) [#/Vol] 1.62 10*3/uL 0.83-4.51 [facility] Automated lymphocyte count a s percentage of total leukocytesOrdered By: Zaynab Alvesloly on 05-15-2023 Lymphocytes/100 WBC Auto (Unsp spec) 18.8 % 19-41 [facility] Basophil percentageOrdered B y: Zaynab Alvesloly on 05-15-2023 Basophil percentage 10.0 g/dL 12.0-15.0 [facility] Basophil percentage 71 mg/dL 74-106 [facility] Basophil percentage 137 mmol/L 136-145 [facility] Basophil percentage 4.1 mmol/L 3.5-5.1 [facility] Basophil percentage 103 mmol/L 98-107 [facility] Basophils (Bld) [#/Vol] 8.6 10*3/uL 4.4-11.0 [facility] Basophils (Bld) [#/Vol] 5.6 10*3/uL 2.0-7.7 [facility] Basophils/100 WBC (Bld) 64.8 % 47-70 [facility] Basophils/100 WBC (Bld) 11.8 % 0-10 [facility] Basophils/100 WBC (Bld) 3.3 % 0-5 [facility] Basophils/100 WBC (Bld) 0.7 % 0-1 [facility] Determination of erythrocyte mean corpuscular volume (MCV)Ordered By: Zaynab Pina on 05-15-2023 MCV (RBC) [Entitic vol] 82.7 fL 81-99 [facility] Erythrocyte distribution wid th ratioOrdered By: Claudioaurorajoesph Pina on 05-15-2023 Erythrocyte distribution width (RBC) [Ratio] 18.1 % 11.6-14.6 [facility] Erythrocyte distribution wid th standard deviationOrdered By: Claudioaurorajoesph Pina on 05-15-2023 Erythrocyte distribution width (RBC) [Entitic vol] 54.5 fL 35.1-43.9 [facility] Hematocrit Auto (Bld) [Volum e fraction]Ordered By: Zaynab Pina on 05-15-2023 Hematocrit (Bld) [Volume fraction] 32.0 % 37-47 [facility] Immature granulocytes/100 WB C Auto (Bld)Ordered By: Zaynab Pina on 05-15-2023 Immature granulocytes/100 WBC (Bld) 0.600 % 0.0-0.9 [facility] No Panel InformationOrdered By: Zaynab Pina on 05-15-2023 25.8 pg 27.0-32.0 [facility] 31.3 g/dL 32-36 [facility] 322 K/mm3 150-450 [facility] 10.2 fl 6.2-12.0 [facility] 0 % 0-5 [facility] 96 mL/min >60 [facility] 117 mL/min >60 [facility] 20.4 RATIO 10-20 [facility] 27.0 mmol/L 21.0-32.0 [facility] RBC Auto (Bld) [#/Vol]Ordere d By: Zaynab Pina on 05-15-2023 RBC (Bld) [#/Vol] 3.87 10*6/uL 4.2-5.4 [facility] Serum or plasma calcium monica urement (mass/volume)Ordered By: Zaynab Pina on 05-15-2023 Calcium [Mass/Vol] 9.0 mg/dL 8.5-10.[address] [facility] Serum or plasma creatinine m easurement (mass/volume)Ordered By: Zaynab Pina on 05-15-2023 Creatinine [Mass/Vol] 0.64 mg/dL 0.55-1.02 [facility] Serum or plasma urea nitroge n measurement (mass/volume)Ordered By: Zaynab Pina on 05-15-2023 Urea nitrogen [Mass/Vol] 13 mg/dL 7-18 [facility] Thin prep Papanicolaou smear with manual screeningOrdered By: Claudioaurorajoesph Pina on 05-15-2023 Thin prep Papanicolaou smear with manual screening 7 5-15 [facility] Capillary blood internationa l normalized ratio (INR)Ordered By: Zaynab Pina on 05-14-2023 INR Coag (BldC) [Relative time] 3.0 [facility] Comment on above: Critical Value > 4.0 Whole blood prothrombin time Ordered By: Zaynab Pina on 05-14-2023 PT Coag (Bld) [Time] 30.4 s 11.7-14.9 [facility] Capillary blood internationa l normalized ratio (INR)Ordered By: Zaynab Pina on 05-10-2023 INR Coag (BldC) [Relative time] 2.8 [facility] Comment on above: Critical Value > 4.0 Whole blood prothrombin time Ordered By: Zaynab Pina on 05-10-2023 PT Coag (Bld) [Time] 28.1 s 11.7-14.9 [facility] Capillary blood internationa l normalized ratio (INR)Ordered By: Zaynab Pina on 05-07-2023 INR Coag (BldC) [Relative time] 2.2 [facility] Comment on above: Critical Value > 4.0 Whole blood prothrombin time Ordered By: Zaynab Pina on 05-07-2023 PT Coag (Bld) [Time] 24.4 s 11.7-14.9 [facility] - CoagulationOrde red By: Zaynab Pina on 05-03-2023 INR Coag (Bld) [Relative time] 2.1 {INR} [facility] PT Coag (PPP) [Time] 23.2 s 11.7-14.9 [facility] No Panel InformationOrdered By: Claudiotanjoesph Cherrynatiloly on 05-03-2023 23.2 SECONDS 11.7-14.9 [facility] 2.1 [facility] Absolute lymphocyte countOrd ered By: Christineelmertanjoesph Cherryjohnny on 05-01-2023 Lymphocytes Auto (Unsp spec) [#/Vol] 1.74 10*3/uL 0.83-4.51 [facility] Automated lymphocyte count a s percentage of total leukocytesOrdered By: Zaynab Cherrynatiloly on 05-01-2023 Lymphocytes/100 WBC Auto (Unsp spec) 23.1 % 19-41 [facility] Basophil percentageOrdered B y: Zaynab Pina on 05-01-2023 Basophil percentage 10.7 g/dL 12.0-15.0 [facility] Basophil percentage 86 mg/dL 74-106 [facility] Basophil percentage 5.8 g/dL 6.4-8.2 [facility] Basophil percentage 0.60 mg/dL 0.20-1.00 [facility] Basophil percentage 137 mmol/L 136-145 [facility] Basophil percentage 3.7 mmol/L 3.5-5.1 [facility] Basophil percentage 105 mmol/L 98-107 [facility] Basophils (Bld) [#/Vol] 7.5 10*3/uL 4.4-11.0 [facility] Basophils (Bld) [#/Vol] 4.7 10*3/uL 2.0-7.7 [facility] Basophils/100 WBC (Bld) 0.7 % 0-1 [facility] Basophils/100 WBC (Bld) 62.4 % 47-70 [facility] Basophils/100 WBC (Bld) 12.0 % 0-10 [facility] Basophils/100 WBC (Bld) 1.3 % 0-5 [facility] Bilirubin [Mass/Vol] 0.60 mg/dL 0.20-1.00 [facility] Comment on above: For patients on eltr ombopag therapy, use of Dimension [place] TBIL is not recommended. Chloride [Moles/Vol] 105 mmol/L 98-107 [facility] Eosinophils/100 WBC (Bld) 1.3 % 0-5 [facility] Glucose [Mass/Vol] 86 mg/dL 74-[address] [facility] Hemoglobin (Bld) [Mass/Vol] 10.7 g/dL 12.0-15.0 [facility] Monocytes/100 WBC (Bld) 12.0 % 0-10 [facility] Neutrophils (Bld) [#/Vol] 4.7 10*3/uL 2.0-7.7 [facility] Neutrophils/100 WBC (Bld) 62.4 % 47-70 [facility] Potassium [Moles/Vol] 3.7 mmol/L 3.5-5.1 [facility] Protein [Mass/Vol] 5.8 g/dL 6.4-8.[address] [facility] Sodium [Moles/Vol] 137 mmol/L 136-[address] [facility] WBC (Bld) [#/Vol] 7.5 10*3/uL 4.4-11.[address] [facility] Determination of erythrocyte mean corpuscular volume (MCV)Ordered By: Zaynab Pina on 05-01-2023 MCV (RBC) [Entitic vol] 84.2 fL 81-99 [facility] Erythrocyte distribution wid th ratioOrdered By: Claudioaurorajoesph Pina on 05-01-2023 Erythrocyte distribution width (RBC) [Ratio] 19.4 % 11.6-14.6 [facility] Erythrocyte distribution wid th standard deviationOrdered By: Claudioaurorajoesph Pina on 05-01-2023 Erythrocyte distribution width (RBC) [Entitic vol] 60.2 fL 35.1-43.9 [facility] Hematocrit Auto (Bld) [Volum e fraction]Ordered By: Zaynab Pina on 05-01-2023 Hematocrit (Bld) [Volume fraction] 33.1 % 37-47 [facility] Immature granulocytes/100 WB C Auto (Bld)Ordered By: Zaynab Pina on 05-01-2023 Immature granulocytes/100 WBC (Bld) 0.500 % 0.0-0.9 [facility] Comment on above: IG% - Immature Granu locytes (promyelocytes, myelocytes and metamyelocytes) > 1% indicates that a LEFT SHIFT is Present. Laboratory - Chemistry and C hemistry - challengeOrdered By: Zaynab Pina on 05-01-2023 Albumin/Globulin [Mass ratio] 0.9 {ratio} 0.9-2.4 [facility] ALP [Catalytic activity/Vol] 93 U/L 45-117 [facility] ALT [Catalytic activity/Vol] 35 U/L 13-56 [facility] CO2 [Moles/Vol] 27.0 mmol/L 21.0-32.0 [facility] Globulin (S) [Mass/Vol] 3.1 g/dL 2.2-4.2 [facility] Urea nitrogen/Creatinine [Mass ratio] 56.7 mg/mg 10-20 [facility] Laboratory - Hematology and Cell countsOrdered By: Zaynab Pina on 05-01-2023 MCH (RBC) [Entitic mass] 27.2 pg 27.0-32.0 [facility] MCHC (RBC) [Mass/Vol] 32.3 g/dL 32-36 [facility] Nucleated RBC/100 WBC (Bld) [Ratio] 0 % 0-5 [facility] Platelet mean volume (Bld) [Entitic vol] 10.2 fL 6.2-12.0 [facility] Platelets (Bld) [#/Vol] 223 10*3/uL 150-450 [facility] No Panel InformationOrdered By: Zaynab Pina on 05-01-2023 Estimated GFR (MDRD) Amer 163 mL/min >60 [facility] Comment on above: GFR Calc Estimated GFR (MDRD) Non-Af Amer 135 mL/min >60 [facility] Comment on above: Non- GFR Calc Vitamin D 25-Hydroxy 42.6 ng/mL [facility] Comment on above: Vitamin D 25(OH) Sta tus Range Deficiency <20 ng/mL (50nmol/L) Insufficiency 20 - 30 ng/mL (50 - 75 nmol/L) Sufficiency 30 - 100 ng/mL (75 - 250 nmol/L) Toxicity >100 ng/mL (>250 nmol/L) 27.2 pg 27.0-32.0 [facility] 32.3 g/dL 32-36 [facility] 223 K/mm3 150-450 [facility] 10.2 fl 6.2-12.0 [facility] 0 % 0-5 [facility] 135 mL/min >60 [facility] 163 mL/min >60 [facility] 56.7 RATIO 10-20 [facility] 3.1 g/dL 2.2-4.2 [facility] 0.9 RATIO 0.9-2.4 [facility] 93 U/L 45-117 [facility] 35 U/L 13-56 [facility] 27.0 mmol/L 21.0-32.0 [facility] 42.6 ng/mL [facility] RBC Auto (Bld) [#/Vol]Ordere d By: Zaynab Pina on 05-01-2023 RBC (Bld) [#/Vol] 3.93 10*6/uL 4.2-5.4 [facility] Serum or plasma calcium monica urement (mass/volume)Ordered By: Zaynab Pina on 05-01-2023 Calcium [Mass/Vol] 8.6 mg/dL 8.5-10.[address] [facility] Serum or plasma creatinine m easurement (mass/volume)Ordered By: Zaynab Pina on 05-01-2023 Creatinine [Mass/Vol] 0.48 mg/dL 0.55-1.02 [facility] Comment on above: The validity of the calculated GFR & GFRAA in patients over 70 years has not been determined. Clinical correlation is essential. Serum or plasma urea nitroge n measurement (mass/volume)Ordered By: Zaynab Pina on 05-01-2023 Urea nitrogen [Mass/Vol] 27 mg/dL 7-18 [facility] Thin prep Papanicolaou smear with manual screeningOrdered By: Zaynab Pina on 05-01-2023 Thin prep Papanicolaou smear with manual screening 2.7 g/dL 3.2-5.0 [facility] Thin prep Papanicolaou smear with manual screening 23 U/L 15-37 [facility] Thin prep Papanicolaou smear with manual screening 5 5-15 [facility] Laboratory - CoagulationOrde red By: Edinson Irvin on 04-30-2023 INR Coag (Bld) [Relative time] 2.2 {INR} [facility] PT Coag (PPP) [Time] 24.5 s 11.7-14.9 [facility] No Panel InformationOrdered By: Edinson Irvin on 04-30-2023 24.5 SECONDS 11.7-14.9 [facility] 2.2 [facility] Basophil percentageOrdered B y: Edinson Irvin on 04-27-2023 Basophil percentage 82 mg/dL 74-106 [facility] Basophil percentage 136 mmol/L 136-145 [facility] Basophil percentage 3.6 mmol/L 3.5-5.1 [facility] Basophil percentage 101 mmol/L 98-107 [facility] Chloride [Moles/Vol] 101 mmol/L 98-107 [facility] Glucose [Mass/Vol] 82 mg/dL 74-[address] [facility] Potassium [Moles/Vol] 3.6 mmol/L 3.5-5.1 [facility] Sodium [Moles/Vol] 136 mmol/L 136-[address] [facility] Laboratory - Chemistry and C hemistry - challengeOrdered By: Edinson Irvin on 04-27-2023 CO2 [Moles/Vol] 28.0 mmol/L 21.0-32.0 [facility] Urea nitrogen/Creatinine [Mass ratio] 54.9 mg/mg 10-20 [facility] No Panel InformationOrdered By: Edinson Irvin on 04-27-2023 Estimated Creatinine Clearance Calc 50.26 ml/min [facility] Estimated GFR (MDRD) Amer 151 mL/min >60 [facility] Comment on above: GFR Calc Estimated GFR (MDRD) Non-Af Amer 125 mL/min >60 [facility] Comment on above: Non- GFR Calc 125 mL/min >60 [facility] 151 mL/min >60 [facility] 50.26 ml/min [facility] 54.9 RATIO - [facility] 28.0 mmol/L 21.0-32.0 [facility] Serum or plasma calcium monica urement (mass/volume)Ordered By: Edinson Irvin on 04-27-2023 Calcium [Mass/Vol] 8.4 mg/dL 8.5-10.[address] [facility] Serum or plasma creatinine m easurement (mass/volume)Ordered By: Edinson Irvin on 04-27-2023 Creatinine [Mass/Vol] 0.51 mg/dL 0.55-1.02 [facility] Comment on above: The validity of the calculated GFR & GFRAA in patients over 70 years has not been determined. Clinical correlation is essential. Serum or plasma urea nitroge n measurement (mass/volume)Ordered By: Edinson Irvin on 04-27-2023 Urea nitrogen [Mass/Vol] 28 mg/dL 7-18 [facility] Thin prep Papanicolaou smear with manual screeningOrdered By: Edinson Irvin on 04-27-2023 Thin prep Papanicolaou smear with manual screening 7 5-15 [facility] Laboratory - CoagulationOrde red By: Edinson Irvin on 04-16-2023 INR Coag (Bld) [Relative time] 1.2 {INR} [facility] PT Coag (PPP) [Time] 14.8 s 11.7-14.9 [facility] Basophil percentageOrdered B y: Edinson Irvin on 04-13-2023 Chloride [Moles/Vol] 104 mmol/L 98-107 [facility] Glucose [Mass/Vol] 89 mg/dL 74-[address] [facility] Potassium [Moles/Vol] 3.5 mmol/L 3.5-5.1 [facility] Sodium [Moles/Vol] 136 mmol/L 136-[address] [facility] Laboratory - Chemistry and C hemistry - challengeOrdered By: Edinson Irvin on 04-13-2023 CO2 [Moles/Vol] 28.0 mmol/L 21.0-32.0 [facility] Urea nitrogen/Creatinine [Mass ratio] 38.2 mg/mg 10- [facility] No Panel InformationOrdered By: Edinson Irvin on 04-13-2023 Estimated Creatinine Clearance Calc 50.26 ml/min [facility] Estimated GFR (MDRD) Amer 147 mL/min >60 [facility] Comment on above: GFR Calc Estimated GFR (MDRD) Non-Af Amer 121 mL/min >60 [facility] Comment on above: Non- GFR Calc Respiratory pathogens detect ion panel by molecular detection methodOrdered By: Edinson Irvin on 04-13-2023 Respiratory pathogens DNA and RNA panel GWEN+probe (Resp) [facility] Respiratory pathogens DNA and RNA panel GWEN+probe (Resp) [facility] Serum or plasma calcium monica urement (mass/volume)Ordered By: Edinson Irvin on 04-13-2023 Calcium [Mass/Vol] 7.8 mg/dL 8.5-10.[address] [facility] Serum or plasma creatinine m easurement (mass/volume)Ordered By: Edinson Irvin on 04-13-2023 Creatinine [Mass/Vol] 0.52 mg/dL 0.55-1.02 [facility] Comment on above: The validity of the calculated GFR & GFRAA in patients over 70 years has not been determined. Clinical correlation is essential. Serum or plasma urea nitroge n measurement (mass/volume)Ordered By: Edinson Irvin on 04-13-2023 Urea nitrogen [Mass/Vol] 20 mg/dL 7-18 [facility] Thin prep Papanicolaou smear with manual screeningOrdered By: Edinson Irvin 04-13-2023 Thin prep Papanicolaou smear with manual screening 4 5-15 [facility] Absolute lymphocyte countOrd ered By: Edinson Irvin on 04-12-2023 Lymphocytes Auto (Unsp spec) [#/Vol] 1.14 10*3/uL 0.83-4.51 [facility] Automated lymphocyte count a s percentage of total leukocytesOrdered By: Edinson Irvin on 04-12-2023 Lymphocytes/100 WBC Auto (Unsp spec) 27.6 % 19-41 [facility] Basophil percentageOrdered B y: Edinson Irvin on 04-12-2023 Basophil percentage 10.1 g/dL 12.0-15.0 [facility] Basophils (Bld) [#/Vol] 4.1 10*3/uL 4.4-11.0 [facility] Basophils (Bld) [#/Vol] 2.1 10*3/uL 2.0-7.7 [facility] Basophils/100 WBC (Bld) 1.2 % 0-1 [facility] Basophils/100 WBC (Bld) 50.6 % 47-70 [facility] Basophils/100 WBC (Bld) 11.4 % 0-10 [facility] Basophils/100 WBC (Bld) 8.7 % 0-5 [facility] Eosinophils/100 WBC (Bld) 8.7 % 0-5 [facility] Hemoglobin (Bld) [Mass/Vol] 10.1 g/dL 12.0-15.0 [facility] Monocytes/100 WBC (Bld) 11.4 % 0-10 [facility] Neutrophils (Bld) [#/Vol] 2.1 10*3/uL 2.0-7.7 [facility] Neutrophils/100 WBC (Bld) 50.6 % 47-70 [facility] WBC (Bld) [#/Vol] 4.1 10*3/uL 4.4-11.[address] [facility] Determination of erythrocyte mean corpuscular volume (MCV)Ordered By: Edinson Irvin on 04-12-2023 MCV (RBC) [Entitic vol] 86.8 fL 81-99 [facility] Erythrocyte distribution wid th ratioOrdered By: Edinson Irvin 04-12-2023 Erythrocyte distribution width (RBC) [Ratio] 22.8 % 11.6-14.6 [facility] Erythrocyte distribution wid th standard deviationOrdered By: Edinson Irvin 04-12-2023 Erythrocyte distribution width (RBC) [Entitic vol] 72.1 fL 35.1-43.9 [facility] Hematocrit Auto (Bld) [Volum e fraction]Ordered By: Edinson Irvin 04-12-2023 Hematocrit (Bld) [Volume fraction] 30.9 % 37-47 [facility] Immature granulocytes/100 WB C Auto (Bld)Ordered By: Edinson Irvin 04-12-2023 Immature granulocytes/100 WBC (Bld) 0.500 % 0.0-0.9 [facility] Comment on above: IG% - Immature Granu locytes (promyelocytes, myelocytes and metamyelocytes) > 1% indicates that a LEFT SHIFT is Present. Laboratory - Hematology and Cell countsOrdered By: Edinson Irvin on 04-12-2023 MCH (RBC) [Entitic mass] 28.4 pg 27.0-32.0 [facility] MCHC (RBC) [Mass/Vol] 32.7 g/dL 32-36 [facility] Nucleated RBC/100 WBC (Bld) [Ratio] 0 % 0-5 [facility] Platelet mean volume (Bld) [Entitic vol] 9.8 fL 6.2-12.0 [facility] Platelets (Bld) [#/Vol] 119 10*3/uL 150-450 [facility] No Panel InformationOrdered By: Edinson Irvin on 04-12-2023 28.4 pg 27.0-32.0 [facility] 32.7 g/dL 32-36 [facility] 119 K/mm3 150-450 [facility] 9.8 fl 6.2-12.0 [facility] 0 % 0-5 [facility] RBC Auto (Bld) [#/Vol]Ordere d By: Edinson Irvin on 04-12-2023 RBC (Bld) [#/Vol] 3.56 10*6/uL 4.2-5.4 [facility] Blood manual differential co mment interpretation (narrative result)Ordered By: Edinson Irvin on 04-11-2023 Manual differential comment Donte (Bld) [Interp] SCANNED [facility] Blood platelet adequacy dete ction by light microscopyOrdered By: Edinson Irvin on 04-11-2023 Platelets LM Ql (Bld) MOD DEC ADEQ [facility] Laboratory - Hematology and Cell countsOrdered By: Edinson Irvin on 04-11-2023 Anisocytosis Ql (Bld) 1+ [facility] No Panel InformationOrdered By: Edinson Irvin on 04-11-2023 1+ [facility] Basophil percentageOrdered B y: Edinson Irvin on 04-06-2023 Basophil percentage 0 SEEN /hpf 0-5 [facility] Bilirubin Test strip Ql (U)O rdered By: Edinson Irvin on 04-06-2023 Bilirubin Ql (U) Negative Negative [facility] Culture, urineOrdered By: Gal Irvin on 04-06-2023 Bacteria identified Cx Nom (U) Culture exhibits no growth. [facility] Ketones Test strip Ql (U)Ord ered By: Edinson Irvin on 04-06-2023 Ketones Ql (U) Negative Negative [facility] Mucus LM Ql (Urine sed)Order ed By: Edinson Irvin on 04-06-2023 Mucus Ql (Urine sed) 0 SEEN /hpf [facility] Nitrite Test strip Ql (U)Ord ered By: Edinson Irvin on 04-06-2023 Nitrite Ql (U) Negative Negative [facility] No Panel InformationOrdered By: Edinson Irvin on 04-06-2023 Urine RBC 0 SEEN /hpf 0-5 [facility] 0 SEEN /hpf 0-5 [facility] Protein Test strip Ql (U)Ord ered By: Edinson Irvin on 04-06-2023 Protein Ql (U) 15 mg/dl Negative [facility] Review by pathologistOrdered By: Edinson Irvin on 04-06-2023 Pathologist review Donte (Unsp spec) [Interp] Reviewed [facility] Comment on above: Previous reported re sult: Dori urbano Edited by: CECY on 04/06/23:1217Normocytic anemia.MARKED Thrombocytopenia.Clinical correlation necessary.Landon Ontiveros M.D. 04/06/23 AMENDED REPORT 04/06/23 1217 PATH REV previously reported as: Dori urbano Squamous epithelial cells de tection in urine sediment by light microscopyOrdered By: Edinson Irvin on 04-06-2023 Epithelial cells.squamous LM Ql (Urine sed) 0-5 SEEN /hpf 5-10 [facility] Urine blood detectionOrdered By: Edinson Irvin on 04-06-2023 RBC Ql (U) 10 /ul Negative [facility] Urine clarityOrdered By: Edinson Irvin on 04-06-2023 Clarity (U) Clear Clear [facility] Urine color determinationOrd ered By: Edinson Irvin on 04-06-2023 Color (U) Yellow Yellow [facility] Urine glucose detectionOrder ed By: Edinson Irvin on 04-06-2023 Glucose Ql (U) Normal mg/dl Normal [facility] Urine leukocyte esterase det ection by dipstickOrdered By: Edinson Irvin on 04-06-2023 Leukocyte esterase Test strip Ql (U) Negative Negative [facility] Urine pHOrdered By: Edinson Irvin on 04-06-2023 pH (U) 6.0 [pH] 5.0 - 8.0 [facility] Urine sediment bacteria coun t by microscopy (number/high power field)Ordered By: Edinson Irvin on 04-06-2023 Bacteria LM.HPF (Urine sed) [#/Area] 0 /[HPF] None Seen [facility] Urine specific gravity measu rementOrdered By: Edinson Irvin on 04-06-2023 Specific gravity (U) [Rel density] 1.015 1.002-1.03 0 [facility] Urine urobilinogen measureme ntOrdered By: Edinson Irvin on 04-06-2023 Urobilinogen Ql (U) Normal mg/dl Normal [facility] Absolute lymphocyte countOrd ered By: Jasmyn Chan on 04-05-2023 Lymphocytes Auto (Unsp spec) [#/Vol] 0.61 10*3/uL 0.83-4.51 [facility] Automated lymphocyte count a s percentage of total leukocytesOrdered By: Jasmyn Chan on 04-05-2023 Lymphocytes/100 WBC Auto (Unsp spec) 10.5 % 19-41 [facility] Basophil percentageOrdered B y: Jasmyn Chan on 04-05-2023 Basophil percentage 9.6 g/dL 12.0-15.0 [facility] Basophils (Bld) [#/Vol] 5.8 10*3/uL 4.4-11.0 [facility] Basophils (Bld) [#/Vol] 4.4 10*3/uL 2.0-7.7 [facility] Basophils/100 WBC (Bld) 0.2 % 0-1 [facility] Basophils/100 WBC (Bld) 74.7 % 47-70 [facility] Basophils/100 WBC (Bld) 8.8 % 0-10 [facility] Basophils/100 WBC (Bld) 5.3 % 0-5 [facility] Eosinophils/100 WBC (Bld) 5.3 % 0-5 [facility] Hemoglobin (Bld) [Mass/Vol] 9.6 g/dL 12.0-15.0 [facility] Monocytes/100 WBC (Bld) 8.8 % 0-10 [facility] Neutrophils (Bld) [#/Vol] 4.4 10*3/uL 2.0-7.7 [facility] Neutrophils/100 WBC (Bld) 74.7 % 47-70 [facility] WBC (Bld) [#/Vol] 5.8 10*3/uL 4.4-11.[address] [facility] Blood platelet adequacy dete ction by light microscopyOrdered By: Jasmyn Chan on 04-05-2023 Platelets LM Ql (Bld) MKD DEC ADEQ [facility] Determination of erythrocyte mean corpuscular volume (MCV)Ordered By: Jasmyn Chan on 04-05-2023 MCV (RBC) [Entitic vol] 85.0 fL 81-99 [facility] Erythrocyte distribution wid th ratioOrdered By: Jasmyn Chan on 04-05-2023 Erythrocyte distribution width (RBC) [Ratio] 22.8 % 11.6-14.6 [facility] Erythrocyte distribution wid th standard deviationOrdered By: Jasmyn Chan on 04-05-2023 Erythrocyte distribution width (RBC) [Entitic vol] 69.7 fL 35.1-43.9 [facility] Hematocrit Auto (Bld) [Volum e fraction]Ordered By: Jasmyn Chan on 04-05-2023 Hematocrit (Bld) [Volume fraction] 28.8 % 37-47 [facility] Immature granulocytes/100 WB C Auto (Bld)Ordered By: Jasmyn Chan on 04-05-2023 Immature granulocytes/100 WBC (Bld) 0.500 % 0.0-0.9 [facility] Comment on above: IG% - Immature Granu locytes (promyelocytes, myelocytes and metamyelocytes) > 1% indicates that a LEFT SHIFT is Present. Laboratory - Hematology and Cell countsOrdered By: Jasmyn Chan on 04-05-2023 Anisocytosis Ql (Bld) 2+ [facility] MCH (RBC) [Entitic mass] 28.3 pg 27.0-32.0 [facility] MCHC (RBC) [Mass/Vol] 33.3 g/dL 32-36 [facility] Nucleated RBC/100 WBC (Bld) [Ratio] 0 % 0-5 [facility] Platelet mean volume (Bld) [Entitic vol] 9.9 fL 6.2-12.0 [facility] Platelets (Bld) [#/Vol] 32 10*3/uL 150-450 [facility] No Panel InformationOrdered By: Jasmyn Chan on 04-05-2023 28.3 pg 27.0-32.0 [facility] 33.3 g/dL 32-36 [facility] 32 K/mm3 150-450 [facility] 9.9 fl 6.2-12.0 [facility] 0 % 0-5 [facility] 2+ [facility] RBC Auto (Bld) [#/Vol]Ordere d By: Jasmyn Chan on 04-05-2023 RBC (Bld) [#/Vol] 3.39 10*6/uL 4.2-5.4 [facility] Review by pathologistOrdered By: Jasmyn Chan on 04-05-2023 Pathologist review Donte (Unsp spec) [Interp] Reviewed [facility] Comment on above: Previous reported re sult: Dori urbano Edited by: [email or web address] on 04/05/23:1300Normocytic anemia.Marked Thrombocytopenia.Clinical correlation necessary.Landon Ontiveros M.D. 04/05/23 AMENDED REPORT 04/05/23 1300 PATH REV previously reported as: Dori urbano Blood manual differential co mment interpretation (narrative result)Ordered By: Jasmyn Chan on 04-04-2023 Manual differential comment Donte (Bld) [Interp] SCANNED [facility] Comment on above: LYMPHOPENIA NOTEDTHR OMBOCYTOPENIA NOTED Laboratory - CoagulationOrde red By: Laine Veras on 04-03-2023 INR Coag (Bld) [Relative time] 1.3 {INR} [facility] PT Coag (PPP) [Time] 16.2 s 11.7-14.9 [facility] No Panel InformationOrdered By: Laine Veras on 04-03-2023 16.2 SECONDS 11.7-14.9 [facility] 1.3 [facility] Basophil percentageOrdered B y: Alisa Mathew on 04-02-2023 Basophil percentage 86 mg/dL 74-106 [facility] Basophil percentage 4.9 g/dL 6.4-8.2 [facility] Basophil percentage 1.70 mg/dL 0.20-1.00 [facility] Basophil percentage 134 mmol/L 136-145 [facility] Basophil percentage 3.6 mmol/L 3.5-5.1 [facility] Basophil percentage 102 mmol/L 98-107 [facility] Bilirubin [Mass/Vol] 1.70 mg/dL 0.20-1.00 [facility] Comment on above: For patients on eltr ombopag therapy, use of Dimension [place] TBIL is not recommended. Chloride [Moles/Vol] 102 mmol/L 98-107 [facility] Glucose [Mass/Vol] 86 mg/dL 74-[address] [facility] Potassium [Moles/Vol] 3.6 mmol/L 3.5-5.1 [facility] Protein [Mass/Vol] 4.9 g/dL 6.4-8.[address] [facility] Sodium [Moles/Vol] 134 mmol/L 136-[address] [facility] Laboratory - Chemistry and C hemistry - challengeOrdered By: Alisa Mathew on 04-02-2023 Albumin/Globulin [Mass ratio] 0.7 {ratio} 0.9-2.4 [facility] ALP [Catalytic activity/Vol] 84 U/L 45-117 [facility] ALT [Catalytic activity/Vol] 35 U/L 13-56 [facility] CO2 [Moles/Vol] 27.0 mmol/L 21.0-32.0 [facility] Globulin (S) [Mass/Vol] 2.9 g/dL 2.2-4.2 [facility] Urea nitrogen/Creatinine [Mass ratio] 25.1 mg/mg 10-20 [facility] [facility] No Panel InformationOrdered By: Alisa Mathew on 04-02-2023 Estimated Creatinine Clearance Calc 50.26 ml/min [facility] Estimated GFR (MDRD) Amer 149 mL/min >60 [facility] Comment on above: GFR Calc Estimated GFR (MDRD) Non-Af Amer 123 mL/min >60 [facility] Comment on above: Non- GFR Calc 123 mL/min >60 [facility] 149 mL/min >60 [facility] 50.26 ml/min [facility] 25.1 RATIO 10-20 [facility] 2.9 g/dL 2.2-4.2 [facility] 0.7 RATIO 0.9-2.4 [facility] 84 U/L 45-117 [facility] 35 U/L 13-56 [facility] 27.0 mmol/L 21.0-32.0 [facility] Serum or plasma calcium monica urement (mass/volume)Ordered By: Alisa Mathew on 04-02-2023 Calcium [Mass/Vol] 7.2 mg/dL 8.5-10.[address] [facility] Serum or plasma creatinine m easurement (mass/volume)Ordered By: Alisa Mathew on 04-02-2023 Creatinine [Mass/Vol] 0.52 mg/dL 0.55-1.02 [facility] Comment on above: The validity of the calculated GFR & GFRAA in patients over 70 years has not been determined. Clinical correlation is essential. Serum or plasma urea nitroge n measurement (mass/volume)Ordered By: Alisa Mathew on 04-02-2023 Urea nitrogen [Mass/Vol] 13 mg/dL 7-18 [facility] Thin prep Papanicolaou smear with manual screeningOrdered By: Alisa Mathew on 04-02-2023 Thin prep Papanicolaou smear with manual screening 2.0 g/dL 3.2-5.0 [facility] Thin prep Papanicolaou smear with manual screening 20 U/L 15-37 [facility] Thin prep Papanicolaou smear with manual screening 5 5-15 [facility] Iron measurement (mass/mass) Ordered By: Alisa Mathew on 04-01-2023 Iron (Unsp spec) [Mass/Mass] 21 ug/dL 50-170 [facility] Laboratory - Chemistry and C hemistry - challengeOrdered By: Alisa Mathew on 04-01-2023 Ferritin [Mass/Vol] 268 ng/mL 8-252 [facility] Laboratory - Chemistry and C hemistry - challengeOrdered By: Laine Veras on 02-11-2024 Magnesium [Mass/Vol] 2.1 mg/dL 1.6-2.6 [facility] No Panel InformationOrdered By: Alisa Mathew on 04-01-2023 Total Iron Binding Capacity 243 ug/dL 250-450 [facility] 243 ug/dL 250-450 [facility] 268 ng/mL 8-252 [facility] No Panel InformationOrdered By: Laine Veras on 04-01-2023 2.1 mg/dL 1.6-2.6 [facility] Serum or plasma iron saturat ion measurement (mass fraction)Ordered By: Alisa Mathew on 04-01-2023 Iron saturation [Mass fraction] 8.6 % 15.0-55.0 [facility] Absolute lymphocyte countOrd ered By: Frederick Almazan on 03-31-2023 Lymphocytes Auto (Unsp spec) [#/Vol] 0.59 10*3/uL 0.83-4.51 [facility] Automated lymphocyte count a s percentage of total leukocytesOrdered By: Frederick Almazan on 03-31-2023 Lymphocytes/100 WBC Auto (Unsp spec) 3.0 % 19-41 [facility] Basophil percentageOrdered B y: Frederick Almazan on 03-31-2023 Basophil percentage 1.4 mmol/L 0.4-2.0 [facility] Basophils/100 WBC (Bld) 0.1 % 0-1 [facility] Chloride [Moles/Vol] 99 mmol/L 98-107 [facility] Eosinophils/100 WBC (Bld) 0.1 % 0-5 [facility] Glucose [Mass/Vol] 108 mg/dL 74-[address] [facility] Comment on above: Fasting Glucose resu lt from 100 to 125 mg/dL suggests IMPAIRED HOMEOSTASIS per A.D.A. criteria. Hemoglobin (Bld) [Mass/Vol] 8.3 g/dL 12.0-15.0 [facility] Lactate [Moles/Vol] 1.4 mmol/L 0.4-2.0 [facility] Monocytes/100 WBC (Bld) 5.0 % 0-10 [facility] Neutrophils (Bld) [#/Vol] 17.6 10*3/uL 2.0-7.7 [facility] Neutrophils/100 WBC (Bld) 90.8 % 47-70 [facility] Potassium [Moles/Vol] 3.2 mmol/L 3.5-5.1 [facility] Sodium [Moles/Vol] 134 mmol/L 136-[address] [facility] WBC (Bld) [#/Vol] 19.4 10*3/uL 4.4-11.0 [facility] Blood manual differential co mment interpretation (narrative result)Ordered By: Frederick Almazan on 03-31-2023 Manual differential comment Donte (Bld) [Interp] SCANNED [facility] Blood platelet adequacy dete ction by light microscopyOrdered By: Frederick Almazan on 03-31-2023 Platelets LM Ql (Bld) MOD DEC ADEQ [facility] Determination of erythrocyte mean corpuscular volume (MCV)Ordered By: Frederick Almazan on 03-31-2023 MCV (RBC) [Entitic vol] 86.8 fL 81-99 [facility] Erythrocyte distribution wid th ratioOrdered By: Frederick Almazan on 03-31-2023 Erythrocyte distribution width (RBC) [Ratio] 24.1 % 11.6-14.6 [facility] Erythrocyte distribution wid th standard deviationOrdered By: Frederick Almazan on 03-31-2023 Erythrocyte distribution width (RBC) [Entitic vol] 75.1 fL 35.1-43.9 [facility] Erythrocyte sedimentation ra teOrdered By: Laine Veras on 03-31-2023 ESR (Bld) [Velocity] 7 mm/h 0-30 [facility] Hematocrit Auto (Bld) [Volum e fraction]Ordered By: Frederick Almazan on 03-31-2023 Hematocrit (Bld) [Volume fraction] 24.9 % 37-47 [facility] Immature granulocytes/100 WB C Auto (Bld)Ordered By: Frederick Almazan on 03-31-2023 Immature granulocytes/100 WBC (Bld) 1.000 % 0.0-0.9 [facility] Comment on above: IG% - Immature Granu locytes (promyelocytes, myelocytes and metamyelocytes) > 1% indicates that a LEFT SHIFT is Present. Laboratory - Chemistry and C hemistry - challengeOrdered By: Frederick Almazan on 02-10-2024 CK [Catalytic activity/Vol] 125 U/L 26-192 [facility] CO2 [Moles/Vol] 29.0 mmol/L 21.0-32.0 [facility] Natriuretic peptide B (Bld) [Mass/Vol] 97.8 pg/mL 0-100 [facility] Urea nitrogen/Creatinine [Mass ratio] 41.2 mg/mg 10-20 [facility] Laboratory - CoagulationOrde red By: Frederick Almazan on 03-31-2023 INR Coag (Bld) [Relative time] 1.3 {INR} [facility] PT Coag (PPP) [Time] 16.0 s 11.7-14.9 [facility] Laboratory - Hematology and Cell countsOrdered By: Frederick Almazan on 03-31-2023 Anisocytosis Ql (Bld) 2+ [facility] MCH (RBC) [Entitic mass] 28.9 pg 27.0-32.0 [facility] MCHC (RBC) [Mass/Vol] 33.3 g/dL 32-36 [facility] Nucleated RBC/100 WBC (Bld) [Ratio] 0 % 0-5 [facility] Platelet mean volume (Bld) [Entitic vol] 10.4 fL 6.2-12.0 [facility] Platelets (Bld) [#/Vol] 95 10*3/uL 150-450 [facility] Macrocytes detectionOrdered By: Frederick Almazan on 03-31-2023 Macrocytes Ql (Bld) 1+ [facility] No Panel InformationOrdered By: Laine Veras on 03-31-2023 C-Reactive Protein Extended Range 35.90 mg/L 0.0-3.0 [facility] Comment on above: C-Reactive Protein ( CRP) provides useful information for thediagnosis, therapy and monitoring of inflammatory processesand associated diseases. For the evaluation of Relative Riskfor Cardiovascular Disease, a High Sensitivity CRP (HSCRP)should be ordered. 35.90 mg/L 0.0-3.0 [facility] No Panel InformationOrdered By: Frederick Almazan on 03-31-2023 Estimated Creatinine Clearance Calc 50.26 ml/min [facility] Estimated GFR (MDRD) Amer 96 mL/min >60 [facility] Comment on above: GFR Calc Estimated GFR (MDRD) Non-Af Amer 80 mL/min >60 [facility] Comment on above: Non- GFR Calc 125 U/L 26-192 [facility] 97.8 pg/mL 0-100 [facility] RBC Auto (Bld) [#/Vol]Ordere d By: Frederick Almazan on 03-31-2023 RBC (Bld) [#/Vol] 2.87 10*6/uL 4.2-5.4 [facility] Serum or plasma calcium monica urement (mass/volume)Ordered By: Frederick Almazan on 03-31-2023 Calcium [Mass/Vol] 7.8 mg/dL 8.5-10.[address] [facility] Serum or plasma creatinine m easurement (mass/volume)Ordered By: Frederick Almazan on 03-31-2023 Creatinine [Mass/Vol] 0.75 mg/dL 0.55-1.02 [facility] Comment on above: The validity of the calculated GFR & GFRAA in patients over 70 years has not been determined. Clinical correlation is essential. Serum or plasma urea nitroge n measurement (mass/volume)Ordered By: Frederick Almazan on 03-31-2023 Urea nitrogen [Mass/Vol] 31 mg/dL 7-18 [facility] Thin prep Papanicolaou smear with manual screeningOrdered By: Frederick Almazan on 03-31-2023 Thin prep Papanicolaou smear with manual screening 1+ [facility] Thin prep Papanicolaou smear with manual screening 6 5-15 [facility] Absolute lymphocyte countOrd ered By: Etienne Thacker on 03-28-2023 Lymphocytes Auto (Unsp spec) [#/Vol] 1.04 10*3/uL 0.83-4.51 [facility] Automated lymphocyte count a s percentage of total leukocytesOrdered By: Etienne Thacker on 03-28-2023 Lymphocytes/100 WBC Auto (Unsp spec) 7.4 % 19-41 [facility] Basophil percentageOrdered B y: Etienne Thacker on 03-28-2023 Basophil percentage 9.6 g/dL 12.0-15.0 [facility] Basophil percentage 113 mg/dL 74-106 [facility] Basophil percentage 131 mmol/L 136-145 [facility] Basophil percentage 4.0 mmol/L 3.5-5.1 [facility] Basophil percentage 98 mmol/L 98-107 [facility] Basophils (Bld) [#/Vol] 14.1 10*3/uL 4.4-11.0 [facility] Basophils (Bld) [#/Vol] 11.3 10*3/uL 2.0-7.7 [facility] Basophils/100 WBC (Bld) 0.2 % 0-1 [facility] Basophils/100 WBC (Bld) 80.2 % 47-70 [facility] Basophils/100 WBC (Bld) 9.8 % 0-10 [facility] Basophils/100 WBC (Bld) 0.0 % 0-5 [facility] Chloride [Moles/Vol] 98 mmol/L 98-107 [facility] Eosinophils/100 WBC (Bld) 0.0 % 0-5 [facility] Glucose [Mass/Vol] 113 mg/dL 74-[address] [facility] Comment on above: Fasting Glucose resu lt from 100 to 125 mg/dL suggests IMPAIRED HOMEOSTASIS per A.D.A. criteria. Hemoglobin (Bld) [Mass/Vol] 9.6 g/dL 12.0-15.0 [facility] Monocytes/100 WBC (Bld) 9.8 % 0-10 [facility] Neutrophils (Bld) [#/Vol] 11.3 10*3/uL 2.0-7.7 [facility] Neutrophils/100 WBC (Bld) 80.2 % 47-70 [facility] Potassium [Moles/Vol] 4.0 mmol/L 3.5-5.1 [facility] Sodium [Moles/Vol] 131 mmol/L 136-[address] [facility] WBC (Bld) [#/Vol] 14.1 10*3/uL 4.4-11.0 [facility] Blood manual differential co mment interpretation (narrative result)Ordered By: Etienne Thacker on 03-28-2023 Manual differential comment Donte (Bld) [Interp] See comment [facility] Comment on above: 1+ ANISOCYTOSIS Determination of erythrocyte mean corpuscular volume (MCV)Ordered By: Etienne Thacker on 03-28-2023 MCV (RBC) [Entitic vol] 83.2 fL 81-99 [facility] Erythrocyte distribution wid th ratioOrdered By: Etienne Thacker on 03-28-2023 Erythrocyte distribution width (RBC) [Ratio] 22.1 % 11.6-14.6 [facility] Erythrocyte distribution wid th standard deviationOrdered By: Etienne Thacker on 03-28-2023 Erythrocyte distribution width (RBC) [Entitic vol] 52.7 fL 35.1-43.9 [facility] Hematocrit Auto (Bld) [Volum e fraction]Ordered By: tEienne Thacker on 03-28-2023 Hematocrit (Bld) [Volume fraction] 28.8 % 37-47 [facility] Immature granulocytes/100 WB C Auto (Bld)Ordered By: Etienne Thacker on 03-28-2023 Immature granulocytes/100 WBC (Bld) 2.400 % 0.0-0.9 [facility] Comment on above: IG% - Immature Granu locytes (promyelocytes, myelocytes and metamyelocytes) > 1% indicates that a LEFT SHIFT is Present. Laboratory - Chemistry and C hemistry - challengeOrdered By: Etienne Thacker on 03-28-2023 CO2 [Moles/Vol] 25.0 mmol/L 21.0-32.0 [facility] Natriuretic peptide B (Bld) [Mass/Vol] 162.5 pg/mL 0-100 [facility] Urea nitrogen/Creatinine [Mass ratio] 35.6 mg/mg 10-20 [facility] Laboratory - CoagulationOrde red By: Etienne Thacker on 03-28-2023 INR Coag (Bld) [Relative time] 3.1 {INR} [facility] PT Coag (PPP) [Time] 32.4 s 11.7-14.9 [facility] - Hematology and Cell countsOrdered By: Etienne Thacker on 03-28-2023 MCH (RBC) [Entitic mass] 27.7 pg 27.0-32.0 [facility] MCHC (RBC) [Mass/Vol] 33.3 g/dL 32-36 [facility] Nucleated RBC/100 WBC (Bld) [Ratio] 0.1 % 0-5 [facility] Platelet mean volume (Bld) [Entitic vol] 10.3 fL 6.2-12.0 [facility] Platelets (Bld) [#/Vol] 170 10*3/uL 150-450 [facility] No Panel InformationOrdered By: Etienne Thacker on 03-28-2023 Estimated Creatinine Clearance Calc 39.81 ml/min [facility] Estimated GFR (MDRD) Amer 69 mL/min >60 [facility] Comment on above: GFR Calc Estimated GFR (MDRD) Non-Af Amer 57 mL/min >60 [facility] Comment on above: Non- GFR Calc Troponin I High Sensitivity 17 pg/mL 3.0-54.0 [facility] Comment on above: Please Note: New Aubrie t Units and Gender Specific Reference Ranges. For more information see Policy Stat Procedure [place] High Sensitivity Troponin (TNIH) and attachments. 27.7 pg 27.0-32.0 [facility] 33.3 g/dL 32-36 [facility] 170 K/mm3 150-450 [facility] 10.3 fl 6.2-12.0 [facility] 0.1 % 0-5 [facility] 32.4 SECONDS 11.7-14.9 [facility] 3.1 [facility] 57 mL/min >60 [facility] 69 mL/min >60 [facility] 39.81 ml/min [facility] 35.6 RATIO 10-20 [facility] 17 pg/mL 3.0-54.0 [facility] 25.0 mmol/L 21.0-32.0 [facility] 162.5 pg/mL 0-100 [facility] RBC Auto (Bld) [#/Vol]Ordere d By: Etienne Thacker on 03-28-2023 RBC (Bld) [#/Vol] 3.46 10*6/uL 4.2-5.4 [facility] Serum or plasma calcium monica urement (mass/volume)Ordered By: Etienne Thacker on 03-28-2023 Calcium [Mass/Vol] 8.5 mg/dL 8.5-10.[address] [facility] Serum or plasma creatinine m easurement (mass/volume)Ordered By: Etienne Thacker on 03-28-2023 Creatinine [Mass/Vol] 1.01 mg/dL 0.55-1.02 [facility] Comment on above: The validity of the calculated GFR & GFRAA in patients over 70 years has not been determined. Clinical correlation is essential. Serum or plasma urea nitroge n measurement (mass/volume)Ordered By: Etienne Thacker on 03-28-2023 Urea nitrogen [Mass/Vol] 36 mg/dL 7-18 [facility] Thin prep Papanicolaou smear with manual screeningOrdered By: Etienne Thacker on 03-28-2023 Thin prep Papanicolaou smear with manual screening 8 5-15 [facility] Absolute lymphocyte countOrd ered By: Laine Veras on 03-27-2023 Lymphocytes Auto (Unsp spec) [#/Vol] 1.08 10*3/uL 0.83-4.51 [facility] Automated lymphocyte count a s percentage of total leukocytesOrdered By: Laine Veras on 03-27-2023 Lymphocytes/100 WBC Auto (Unsp spec) 8.7 % 19-41 [facility] Basophil percentageOrdered B y: Laine Veras on 03-27-2023 Basophil percentage 7.9 g/dL 12.0-15.0 [facility] Basophil percentage 103 mg/dL 74-106 [facility] Basophil percentage 5.3 g/dL 6.4-8.2 [facility] Basophil percentage 1.70 mg/dL 0.20-1.00 [facility] Basophil percentage 132 mmol/L 136-145 [facility] Basophil percentage 4.1 mmol/L 3.5-5.1 [facility] Basophil percentage 101 mmol/L 98-107 [facility] Basophils (Bld) [#/Vol] 12.4 10*3/uL 4.4-11.0 [facility] Basophils (Bld) [#/Vol] 9.5 10*3/uL 2.0-7.7 [facility] Basophils/100 WBC (Bld) 0.2 % 0-1 [facility] Basophils/100 WBC (Bld) 76.4 % 47-70 [facility] Basophils/100 WBC (Bld) 10.7 % 0-10 [facility] Basophils/100 WBC (Bld) 0.0 % 0-5 [facility] Bilirubin [Mass/Vol] 1.70 mg/dL 0.20-1.00 [facility] Comment on above: For patients on eltr ombopag therapy, use of Dimension [place] TBIL is not recommended. Chloride [Moles/Vol] 101 mmol/L 98-107 [facility] Eosinophils/100 WBC (Bld) 0.0 % 0-5 [facility] Glucose [Mass/Vol] 103 mg/dL 74-[address] [facility] Comment on above: Fasting Glucose resu lt from 100 to 125 mg/dL suggests IMPAIRED HOMEOSTASIS per A.D.A. criteria. Hemoglobin (Bld) [Mass/Vol] 7.9 g/dL 12.0-15.0 [facility] Monocytes/100 WBC (Bld) 10.7 % 0-10 [facility] Neutrophils (Bld) [#/Vol] 9.5 10*3/uL 2.0-7.7 [facility] Neutrophils/100 WBC (Bld) 76.4 % 47-70 [facility] Potassium [Moles/Vol] 4.1 mmol/L 3.5-5.1 [facility] Protein [Mass/Vol] 5.3 g/dL 6.4-8.[address] [facility] Sodium [Moles/Vol] 132 mmol/L 136-[address] [facility] WBC (Bld) [#/Vol] 12.4 10*3/uL 4.4-11.0 [facility] Blood manual differential co mment interpretation (narrative result)Ordered By: Laine Veras on 03-27-2023 Manual differential comment Donte (Bld) [Interp] SCANNED [facility] Determination of erythrocyte mean corpuscular volume (MCV)Ordered By: Laine Veras on 03-27-2023 MCV (RBC) [Entitic vol] 85.0 fL 81-99 [facility] Erythrocyte distribution wid th ratioOrdered By: Laine Veras on 03-27-2023 Erythrocyte distribution width (RBC) [Ratio] 20.5 % 11.6-14.6 [facility] Erythrocyte distribution wid th standard deviationOrdered By: Laine Veras on 03-27-2023 Erythrocyte distribution width (RBC) [Entitic vol] 51.5 fL 35.1-43.9 [facility] Hematocrit Auto (Bld) [Volum e fraction]Ordered By: Laine Veras on 03-27-2023 Hematocrit (Bld) [Volume fraction] 24.4 % 37-47 [facility] Immature granulocytes/100 WB C Auto (Bld)Ordered By: Laine Veras on 03-27-2023 Immature granulocytes/100 WBC (Bld) 4.000 % 0.0-0.9 [facility] Comment on above: IG% - Immature Granu locytes (promyelocytes, myelocytes and metamyelocytes) > 1% indicates that a LEFT SHIFT is Present. Laboratory - Chemistry and C hemistry - challengeOrdered By: Laine Veras on 03-27-2023 Albumin/Globulin [Mass ratio] 0.8 {ratio} 0.9-2.4 [facility] ALP [Catalytic activity/Vol] 170 U/L 45-117 [facility] ALT [Catalytic activity/Vol] 65 U/L 13-56 [facility] CO2 [Moles/Vol] 24.0 mmol/L 21.0-32.0 [facility] Globulin (S) [Mass/Vol] 3.0 g/dL 2.2-4.2 [facility] Magnesium [Mass/Vol] 2.6 mg/dL 1.6-2.6 [facility] Urea nitrogen/Creatinine [Mass ratio] 29.9 mg/mg 10-20 [facility] Laboratory - CoagulationOrde red By: Laine Veras on 03-27-2023 INR Coag (Bld) [Relative time] 3.9 {INR} [facility] PT Coag (PPP) [Time] 38.9 s 11.7-14.9 [facility] - Hematology and Cell countsOrdered By: Laine Veras on 03-27-2023 Anisocytosis Ql (Bld) 2+ [facility] MCH (RBC) [Entitic mass] 27.5 pg 27.0-32.0 [facility] MCHC (RBC) [Mass/Vol] 32.4 g/dL 32-36 [facility] Nucleated RBC/100 WBC (Bld) [Ratio] 0.2 % 0-5 [facility] Platelet mean volume (Bld) [Entitic vol] 10.2 fL 6.2-12.0 [facility] Platelets (Bld) [#/Vol] 134 10*3/uL 150-450 [facility] No Panel InformationOrdered By: Laine Veras on 03-27-2023 Estimated Creatinine Clearance Calc 46.22 ml/min [facility] Estimated GFR (MDRD) Amer 82 mL/min >60 [facility] Comment on above: GFR Calc Estimated GFR (MDRD) Non-Af Amer 67 mL/min >60 [facility] Comment on above: Non- GFR Calc 27.5 pg 27.0-32.0 [facility] 32.4 g/dL 32-36 [facility] 134 K/mm3 150-450 [facility] 10.2 fl 6.2-12.0 [facility] 0.2 % 0-5 [facility] 2+ [facility] 38.9 SECONDS 11.7-14.9 [facility] 3.9 [facility] 67 mL/min >60 [facility] 82 mL/min >60 [facility] 46.22 ml/min [facility] 29.9 RATIO 10-20 [facility] 3.0 g/dL 2.2-4.2 [facility] 0.8 RATIO 0.9-2.4 [facility] 170 U/L 45-117 [facility] 65 U/L 13-56 [facility] 2.6 mg/dL 1.6-2.6 [facility] 24.0 mmol/L 21.0-32.0 [facility] RBC Auto (Bld) [#/Vol]Ordere d By: Laine Veras on 03-27-2023 RBC (Bld) [#/Vol] 2.87 10*6/uL 4.2-5.4 [facility] Serum or plasma calcium monica urement (mass/volume)Ordered By: Laine Veras on 03-27-2023 Calcium [Mass/Vol] 7.7 mg/dL 8.5-10.[address] [facility] Serum or plasma creatinine m easurement (mass/volume)Ordered By: Laine Veras on 03-27-2023 Creatinine [Mass/Vol] 0.87 mg/dL 0.55-1.02 [facility] Comment on above: The validity of the calculated GFR & GFRAA in patients over 70 years has not been determined. Clinical correlation is essential. Serum or plasma thyroid stim ulating hormone (TSH) measurement (units/volume)Ordered By: Laine Veras on 03-27-2023 TSH Qn 0.76 uIU/mL 0.358-3.74 [facility] Serum or plasma urea nitroge n measurement (mass/volume)Ordered By: Laine Veras on 03-27-2023 Urea nitrogen [Mass/Vol] 26 mg/dL 7-18 [facility] [facility] Th[facility] Papanicolaou smear with manual screeningOrdered By: Laine Veras on 03-27-2023 Thin prep Papanicolaou smear with manual screening 2.3 g/dL 3.2-5.0 [facility] Thin prep Papanicolaou smear with manual screening 27 U/L 15-37 [facility] Thin prep Papanicolaou smear with manual screening 7 5-15 [facility] Absolute lymphocyte countOrd ered By: Martín Cornejo on 03-26-2023 Lymphocytes Auto (Unsp spec) [#/Vol] 1.06 10*3/uL 0.83-4.51 [facility] Automated lymphocyte count a s percentage of total leukocytesOrdered By: Martín Cornejo on 03-26-2023 Lymphocytes/100 WBC Auto (Unsp spec) 6.3 % 19-41 [facility] Basophil percentageOrdered B y: Martín Cornejo on 03-26-2023 Basophil percentage 0 SEEN /hpf 0-5 [facility] Basophils/100 WBC (Bld) 0.1 % 0-1 [facility] Chloride [Moles/Vol] 101 mmol/L 98-107 [facility] Eosinophils/100 WBC (Bld) 0.0 % 0-5 [facility] Glucose [Mass/Vol] 111 mg/dL 74-[address] [facility] Comment on above: Fasting Glucose resu lt from 100 to 125 mg/dL suggests IMPAIRED HOMEOSTASIS per A.D.A. criteria. Hemoglobin (Bld) [Mass/Vol] 8.9 g/dL 12.0-15.0 [facility] Monocytes/100 WBC (Bld) 9.6 % 0-10 [facility] Neutrophils (Bld) [#/Vol] 13.6 10*3/uL 2.0-7.7 [facility] Neutrophils/100 WBC (Bld) 80.3 % 47-70 [facility] Potassium [Moles/Vol] 3.6 mmol/L 3.5-5.1 [facility] Sodium [Moles/Vol] 135 mmol/L 136-[address] [facility] WBC (Bld) [#/Vol] 16.9 10*3/uL 4.4-11.0 [facility] Bilirubin Test strip Ql (U)O rdered By: Martín Cornejo on 03-26-2023 Bilirubin Ql (U) Negative Negative [facility] Blood manual differential co mment interpretation (narrative result)Ordered By: Martín Cornejo on 03-26-2023 Manual differential comment Donte (Bld) [Interp] SCANNED [facility] Determination of erythrocyte mean corpuscular volume (MCV)Ordered By: Martín Cornejo on 03-26-2023 MCV (RBC) [Entitic vol] 81.5 fL 81-99 [facility] Erythrocyte distribution wid th ratioOrdered By: Martín Cornejo on 03-26-2023 Erythrocyte distribution width (RBC) [Ratio] 19.6 % 11.6-14.6 [facility] Erythrocyte distribution wid th standard deviationOrdered By: Martín Cornejo on 03-26-2023 Erythrocyte distribution width (RBC) [Entitic vol] 48.8 fL 35.1-43.9 [facility] Hematocrit Auto (Bld) [Volum e fraction]Ordered By: Martín Cornejo on 03-26-2023 Hematocrit (Bld) [Volume fraction] 26.8 % 37-47 [facility] Immature granulocytes/100 WB C Auto (Bld)Ordered By: Martín Cornejo on 03-26-2023 Immature granulocytes/100 WBC (Bld) 3.700 % 0.0-0.9 [facility] Comment on above: IG% - Immature Granu locytes (promyelocytes, myelocytes and metamyelocytes) > 1% indicates that a LEFT SHIFT is Present. International normalized rat io (INR) calculationOrdered By: Martín Cornejo on 03-26-2023 INR Coag (PPP) [Relative time] 3.2 {INR} [facility] Ketones Test strip Ql (U)Ord ered By: Martín Cornejo on 03-26-2023 Ketones Ql (U) Negative Negative [facility] Laboratory - Chemistry and C hemistry - challengeOrdered By: Martín Cornejo on 03-26-2023 CO2 [Moles/Vol] 27.0 mmol/L 21.0-32.0 [facility] Natriuretic peptide B (Bld) [Mass/Vol] 322.3 pg/mL 0-100 [facility] Urea nitrogen/Creatinine [Mass ratio] 34.8 mg/mg 10-20 [facility] Laboratory - CoagulationOrde red By: Martín Cornejo on 03-26-2023 PT Coag (PPP) [Time] 33.3 s 11.7-14.9 [facility] Laboratory - Hematology and Cell countsOrdered By: Martín Cornejo on 03-26-2023 MCH (RBC) [Entitic mass] 27.1 pg 27.0-32.0 [facility] MCHC (RBC) [Mass/Vol] 33.2 g/dL 32-36 [facility] Nucleated RBC/100 WBC (Bld) [Ratio] 0.1 % 0-5 [facility] Platelets (Bld) [#/Vol] 169 10*3/uL 150-450 [facility] Mucus LM Ql (Urine sed)Order ed By: Martín Cornejo on 03-26-2023 Mucus Ql (Urine sed) 0 SEEN /hpf [facility] Nitrite Test strip Ql (U)Ord ered By: Martín Cornejo on 03-26-2023 Nitrite Ql (U) Negative Negative [facility] No Panel InformationOrdered By: Martín Cornejo on 03-26-2023 Urine RBC 0 SEEN /hpf 0-5 [facility] 0 SEEN /hpf 0-5 [facility] Estimated Creatinine Clearance Calc 49.15 ml/min [facility] Estimated GFR (MDRD) Amer 79 mL/min >60 [facility] Comment on above: GFR Calc Estimated GFR (MDRD) Non-Af Amer 66 mL/min >60 [facility] Comment on above: Non- GFR Calc Troponin I High Sensitivity 20 pg/mL 3.0-54.0 [facility] Comment on above: Please Note: New Aubrie t Units and Gender Specific Reference Ranges. For more information see Policy Stat Procedure [place] High Sensitivity Troponin (TNIH) and attachments. 20 pg/mL 3.0-54.0 [facility] 322.3 pg/mL 0-100 [facility] Platelet mean volume Nicholas-Ec ker (Bld) [Entitic vol]Ordered By: Martín Cornejo on 03-26-2023 Platelet mean volume (Bld) [Entitic vol] 9.9 fL 6.2-12.0 [facility] Protein Test strip Ql (U)Ord ered By: Martín Cronejo on 03-26-2023 Protein Ql (U) 30 mg/dl Negative [facility] RBC Auto (Bld) [#/Vol]Ordere d By: Martín Cornejo on 03-26-2023 RBC (Bld) [#/Vol] 3.29 10*6/uL 4.2-5.4 [facility] Review by pathologistOrdered By: Martín Cornejo on 03-26-2023 Pathologist review Donte (Unsp spec) [Interp] Dori urbano [facility] Pathologist review Donte (Unsp spec) [Interp] Reviewed [facility] Comment on above: Previous reported re sult: Dori urbano Edited by: RGOVIKTOR on 03/27/23:1255Neutrophilic leukocytosis with left shift.Normocytic anemia.Clinical correlation necessary.Landon Ontiveros M.D. 03/27/23 AMENDED REPORT 03/27/23 1255 PATH REV previously reported as: Dori urbano Serum or plasma calcium monica urement (mass/volume)Ordered By: Martín Cornejo on 03-26-2023 Calcium [Mass/Vol] 8.1 mg/dL 8.5-10.[address] [facility] Serum or plasma creatinine m easurement (mass/volume)Ordered By: Martín Cornejo on 03-26-2023 Creatinine [Mass/Vol] 0.89 mg/dL 0.55-1.02 [facility] Comment on above: The validity of the calculated GFR & GFRAA in patients over 70 years has not been determined. Clinical correlation is essential. Serum or plasma urea nitroge n measurement (mass/volume)Ordered By: Martín Cornejo on 03-26-2023 Urea nitrogen [Mass/Vol] 31 mg/dL 7-18 [facility] Squamous epithelial cells de tection in urine sediment by light microscopyOrdered By: Martín Cornejo on 03-26-2023 Epithelial cells.squamous LM Ql (Urine sed) 0 SEEN /hpf 5-10 [facility] Thin prep Papanicolaou smear with manual screeningOrdered By: Martín Cornejo on 03-26-2023 Thin prep Papanicolaou smear with manual screening 7 5-15 [facility] Urine blood detectionOrdered By: Martín Cornejo on 03-26-2023 RBC Ql (U) 10 /ul Negative [facility] Urine clarityOrdered By: Ryder Cornejo on 03-26-2023 Clarity (U) Clear Clear [facility] Urine color determinationOrd ered By: Martín Cornejo on 03-26-2023 Color (U) Yellow Yellow [facility] Urine glucose detectionOrder ed By: Martín Cornejo on 03-26-2023 Glucose Ql (U) Normal mg/dl Normal [facility] Urine leukocyte esterase det ection by dipstickOrdered By: Martín Cornejo on 03-26-2023 Leukocyte esterase Test strip Ql (U) Negative Negative [facility] Urine pHOrdered By: Martín rebolledo on 03-26-2023 pH (U) 6.5 [pH] 5.0 - 8.0 [facility] Urine sediment bacteria coun t by microscopy (number/high power field)Ordered By: Martín Cornejo on 03-26-2023 Bacteria LM.HPF (Urine sed) [#/Area] 0 /[HPF] None Seen [facility] Urine specific gravity measu rementOrdered By: Martín Cornejo on 03-26-2023 Specific gravity (U) [Rel density] 1.015 1.002-1.03 0 [facility] Urine urobilinogen measureme ntOrdered By: Martín Cornejo on 03-26-2023 Urobilinogen Ql (U) Normal mg/dl Normal [facility] Basic metabolic 2000 panelon 03-25-2023 Anion gap [Moles/Vol] 11 mmol/L Normal 9-18 [facility] Comment on above: Order Comment: Speci men Type: BLOOD SPECIMEN Ordering Facility: [facility] Address: [address] [place] [address] Performed By: #### 2 4321-2 #### [facility] CLIA [id number] 1 [place] [address] [place] Calcium [Mass/Vol] 8.6 mg/dL Normal 8.5-10.2 [facility] Comment on above: Order Comment: Speci men Type: BLOOD SPECIMEN Ordering Facility: [facility] Address: [facility] [place] [address] Performed By: #### 2 4321-2 #### [facility] CLIA [id number] [address] [place] [address] [place] Chloride [Moles/Vol] 96 mmol/L Low 97-105 [facility] Comment on above: Order Comment: Speci men Type: BLOOD SPECIMEN Ordering Facility: [facility] Address: [address] [place] [address] Performed By: #### 2 4321-2 #### [facility] CLIA [id number] [address] [place] CO2 [Moles/Vol] 23 mmol/L Normal 22-30 [facility] Comment on above: Order Comment: Speci men Type: BLOOD SPECIMEN Ordering Facility: [facility] Address: [address] [place] [address] Performed By: #### 2 4321-2 #### [facility] CLIA [id number] [address] [place] Creatinine [Mass/Vol] 0.84 mg/dL Normal 0.58-0.96 [facility] Comment on above: Order Comment: Speci men Type: BLOOD SPECIMEN Ordering Facility: [facility] Address: [address] [place] [address] Performed By: #### 2 4321-2 #### [facility] CLIA [id number] [address] OF [place] Creatinine and Glomerular filtration rate.predicted panel (S/P/Bld) 73 mL/min/1.73m??? Normal >=60 [facility] Comment on above: Order Comment: Speci men Type: BLOOD SPECIMEN Ordering Facility: [facility] Address: [address] [place] [address] Result Comment: Meaghan mated Glomerular Filtration Rate [...] GFR. Performed By: #### 2 4321-2 #### [facility] CLIA [id number] 1 [place] [address] [place] Glucose [Mass/Vol] 134 mg/dL High 74-99 [facility] Comment on above: Order Comment: Speci men Type: BLOOD SPECIMEN Ordering Facility: [facility] Address: [address] [place] [address] Result Comment: The [place] [employer] (ADA) provides guidance for cutoff [...] Standards of Medical Care in Diabetes 2016, [place] [employer]. Diabetes Care. 2016.39(Suppl 1). Performed By: #### 2 4321-2 #### [facility] CLIA [id number] [address] [place] [address] [place] Potassium [Moles/Vol] 3.9 mmol/L Normal 3.7-5.1 [facility] Comment on above: Order Comment: Renay adkins Type: BLOOD SPECIMEN Ordering Facility: [facility] Address: [address] [place] [id number] Performed By: #### 2 4321-2 #### [facility] CLIA [id number] [address] [place] [address] [place] Sodium [Moles/Vol] 130 mmol/L Low 136-144 [facility] Comment on above: Order Comment: Speci men Type: BLOOD SPECIMEN Ordering Facility: [facility] Address: [address] [place] [address] Performed By: #### 2 4321-2 #### [facility] CLIA [id number] [address] STATES [facility] Urea nitrogen [Mass/Vol] 27 mg/dL High 7-21 [facility] Comment on above: Order Comment: Speci men Type: BLOOD SPECIMEN Ordering Facility: [facility] Address: [address] [place] [address] Performed By: #### 2 4321-2 #### [facility] CLIA [id number] [address] [place] CBC panel Auto (Bld)on 03-25 Erythrocyte distribution width (RBC) [Ratio] 17.8 % High 11.5-15.0 [facility] Comment on above: Order Comment: Speci men Type: BLOOD SPECIMEN Ordering Facility: [facility] Address: [address] [place] [address] Performed By: #### 1 4196-0, 81940-2 #### [facility] CLIA [id number] [address] OF [facility] Hematocrit (Bld) [Volume fraction] 26.8 % Low 36.0-46.0 [facility] Comment on above: Order Comment: Speci men Type: BLOOD SPECIMEN Ordering Facility: [facility] Address: [address] [place] [address] Performed By: #### 1 4196-0, 87679-5 #### [facility] CLIA [id number] [address] [place] Hemoglobin (Bld) [Mass/Vol] 8.9 g/dL Low 11.5-15.5 [facility] Comment on above: Order Comment: Speci men Type: BLOOD SPECIMEN Ordering Facility: [facility] Address: [address] [place] [address] Performed By: #### 1 4196-0, 82126-5 #### [facility] CLIA [id number] [address] [place] [address] MCH (RBC) [Entitic mass] 27.1 pg Normal 26.0-34.0 [facility] Comment on above: Order Comment: Speci men Type: BLOOD SPECIMEN Ordering Facility: [facility] Address: [address] [place] [address] Performed By: #### 1 4196-0, 54522-2 #### [facility] CLIA [id number] [address] MCHC (RBC) [Mass/Vol] 33.2 g/dL Normal 30.5-36.0 [facility] Comment on above: Order Comment: Speci men Type: BLOOD SPECIMEN Ordering Facility: [facility] Address: [address] [place] [address] Performed By: #### 1 4196-0, 96739-2 #### [facility] CLIA [id number] [address] [place] [address] MCV (RBC) [Entitic vol] 81.5 fL Normal 80.0-100.[address] [facility] Comment on above: Order Comment: Speci men Type: BLOOD SPECIMEN Ordering Facility: [facility] Address: [address] [place] [address] Performed By: #### 1 4196-0, 77593-3 #### [facility] CLIA [id number] [address] [place] [address] Nucleated RBC (Bld) [#/Vol] 0.04 10*3/uL High <0.01 [facility] Comment on above: Order Comment: Speci men Type: BLOOD SPECIMEN Ordering Facility: [facility] Address: [address] [place] [address] Performed By: #### 1 4196-0, 38076-7 #### [facility] CLIA [id number] [address] Platelet mean volume (Bld) [Entitic vol] 10.0 fL Normal 9.0-12.7 [facility] Comment on above: Order Comment: Speci men Type: BLOOD SPECIMEN Ordering Facility: [facility] Address: [address] [place] [address] Performed By: #### 1 4196-0, 05457-9 #### [facility] CLIA [id number] [address] Platelets (Bld) [#/Vol] 172 10*3/uL Normal 150-400 [facility] Comment on above: Order Comment: Speci men Type: BLOOD SPECIMEN Ordering Facility: [facility] Address: [address] [place] [address] Performed By: #### 1 4196-0, 05544-2 #### [facility] CLIA [id number] [address] RBC (Bld) [#/Vol] 3.29 10*6/uL Low 3.90-5.20 [facility] Comment on above: Order Comment: Speci men Type: BLOOD SPECIMEN Ordering Facility: [facility] Address: [address] [place] [address] Performed By: #### 1 4196-0, 69326-2 #### [facility] CLIA [id number] [address] WBC (Bld) [#/Vol] 13.55 10*3/uL High 3.70-11.00 [facility] Comment on above: Order Comment: Speci men Type: BLOOD SPECIMEN Ordering Facility: [facility] Address: [address] [place] [address] Performed By: #### 1 4196-0, 94037-9 #### [facility] CLIA [id number] [address] CNDSon 03-25-2023 CNDS HNO ID: [id number] Author: SHARAN RIVAS MD Service: Hospital Medicine [...] MD Consulting: Alexi Marin MD Primary Service: LILIANE BHATTI Consulting: Geno Camacho MD REASON FOR HOSPITALIZATION: [...] was found to be COVID-19 positive in [facility]. Imaging showed intraperitoneal air and pneumatosis intestinalis and patient was transferred to [facility]. Pulmonology was consulted and patient was started [...] you take (more content not included)... Normal [facility] CONSULT PRODanial 03-25-2023 CONSULT PROG HNO ID: [id number] Author: BRISSA LIMA RPh Service: Pharmacy Author [...] warfarin 5 mg once daily Managed at [facility] 03/19: INR on arrival to [facility] was 9. She was given Vitamin K [...] (SPORANOX) 200 mg ORAL BID phenol 1 [place] (CHLORASEPTIC) 1 [place] MUCOUS MEMBRANE (TOPICAL MOUTH AND THROAT) q [...] patient received education: No- home med Signature: Brissadenise Lima [facility] Pager/Extension: [phone] Normal [facility] NURSING PROGon 03-25-2023 NURSING PROG HNO ID: [id number] Author: ARMEN FERNANDEZ, RN Service: Nursing Author Type: Registered Nurse Type: Nursing Progress Note Filed: 03/25/2023 14:31 Note Text: This RN spoke with Dr. Rivas regarding sepsis BPA alert, no new orders at this time, pt remains stable. Normal [facility] PT panel Coag (PPP)on 2023 INR Coag (PPP) [Relative time] 2.0 {INR} High 0.9-1.3 [facility] Comment on above: Order Comment: Speci men Type: BLOOD SPECIMEN Ordering Facility: [facility] Address: [address] [place] [address] Result Comment: Halle min K Antagonist (VKA) Therapeutic Range: INR 2 to 3 (Target INR of 2.5) Note: For patients treated with VKA drugs, such as warfarin, the [place] [employer] 2012 Guideline recommends [...] GH, et al. Chest 2012, 141:7S-47S Mitzi RA et al. JACC 2017, 70: 252-289 Performed By: #### 1 4196-0, 63035-4 #### [facility] CLIA [id number] [address] OF [facility] PT Coag (PPP) [Time] 20.0 s High 9.7-13.0 [facility] Comment on above: Order Comment: Speci men Type: BLOOD SPECIMEN Ordering Facility: [facility] Address: [address] [place] [address] Performed By: #### 1 4196-0, 63046-4 #### [facility] CLIA [id number] [address] STATES OF [facility] Basic metabolic 2000 panelon 03-24-2023 Anion gap [Moles/Vol] 10 mmol/L Normal 9-18 [facility] Comment on above: Order Comment: Speci men Type: BLOOD SPECIMEN Ordering Facility: [facility] Address: [address] [place] [address] Performed By: #### 1 4196-0, 36462-3 #### [facility] CLIA [id number] [address] [place] Calcium [Mass/Vol] 8.8 mg/dL Normal 8.5-10.2 [facility] Comment on above: Order Comment: Speci men Type: BLOOD SPECIMEN Ordering Facility: [facility] Address: [address] [place] [address] Performed By: #### 1 4196-0, 45768-9 #### [facility] CLIA [id number] [address] STATES OF [facility] Chloride [Moles/Vol] 98 mmol/L Normal 97-105 [facility] Comment on above: Order Comment: Speci men Type: BLOOD SPECIMEN Ordering Facility: [facility] Address: [address] [place] [address] Performed By: #### 1 4196-0, 14578-7 #### [facility] CLIA [id number] [address] [place] [address] [place] CO2 [Moles/Vol] 24 mmol/L Normal 22-30 [facility] Comment on above: Order Comment: Speci men Type: BLOOD SPECIMEN Ordering Facility: [facility] Address: [address] [place] [address] Performed By: #### 1 4196-0, 53200-5 #### [facility] CLIA [id number] [address] [place] Creatinine [Mass/Vol] 0.89 mg/dL Normal 0.58-0.96 [facility] Comment on above: Order Comment: Renay adkins Type: BLOOD SPECIMEN Ordering Facility: [facility] Address: [address] [place] [address] Performed By: #### 1 4196-0, 85372-4 #### [facility] CLIA [id number] [address] OF [facility] Creatinine and Glomerular filtration rate.predicted panel (S/P/Bld) 68 mL/min/1.73m??? Normal >=60 [facility] Comment on above: Order Comment: Renay adkins Type: BLOOD SPECIMEN Ordering Facility: [facility] Address: [address] [place] [address] Result Comment: Meaghan mated Glomerular Filtration Rate [...] actual GFR. Performed By: #### 1 4196-0, 04083-2 #### [facility] CLIA [id number] [address] [place] Glucose [Mass/Vol] 125 mg/dL High 74-99 [facility] Comment on above: Order Comment: Renay lucille Type: BLOOD SPECIMEN Ordering Facility: [facility] Address: [address] [place] [address] Result Comment: The [place] [employer] (ADA) provides guidance for cutoff [...] Standards of Medical Care in Diabetes 2016, [place] [employer]. Diabetes Care. 2016.39(Suppl 1). Performed By: #### 1 4196-0, 01197-0 #### [facility] CLIA [id number] [address] [place] [address] [place] Potassium [Moles/Vol] 4.1 mmol/L Normal 3.7-5.1 [facility] Comment on above: Order Comment: Renay adkins Type: BLOOD SPECIMEN Ordering Facility: [facility] Address: [address] [place] [address] Performed By: #### 1 4196-0, 40896-9 #### [facility] CLIA [id number] [address] STATES OF [facility] Sodium [Moles/Vol] 132 mmol/L Low 136-144 [facility] Comment on above: Order Comment: Renay adkins Type: BLOOD SPECIMEN Ordering Facility: [facility] Address: [address] [place] [address] Performed By: #### 1 4196-0, 09470-9 #### [facility] CLIA [id number] [address] [place] Urea nitrogen [Mass/Vol] 32 mg/dL High 7-21 [facility] Comment on above: Order Comment: Abhilashi lucille Type: BLOOD SPECIMEN Ordering Facility: [facility] Address: [address] [place] [address] Performed By: #### 1 4196-0, 91065-7 #### [facility] CLIA [id number] [address] [place] [address] [place] C diff Tox gens Stl Ql GWEN+p robeon 03-24-2023 C. difficile toxin genes GWEN+probe Ql (Stl) Negative Normal Negative for C. difficile toxin by PCR [facility] Comment on above: Order Comment: Speci men Type: STOOL SPECIMEN Ordering Facility[facility] Address: [address] [place] [address] Performed By: #### 5 4067-4 #### [facility] CLIA [id number] [address] CBC panel Auto (Bld)on 03-24 E[facility] distribution width (RBC) [Ratio] 17.2 % High 11.5-15.0 [facility] Comment on above: Order Comment: Speci men Type: BLOOD SPECIMEN Ordering Facility: [facility] Address: [address] [place] [address] Performed By: #### 1 4196-0, 23080-9 #### [employer] [facility] CLIA [id number] [address] OF [facility] Hematocrit (Bld) [Volume fraction] 26.5 % Low 36.0-46.0 [facility] Comment on above: Order Comment: Speci men Type: BLOOD SPECIMEN Ordering Facility: [facility] Address: [address] [place] [address] Performed By: #### 1 4196-0, 77102-1 #### [employer] [facility] CLIA [id number] [address] Hemoglobin (Bld) [Mass/Vol] 9.1 g/dL Low 11.5-15.5 [facility] Comment on above: Order Comment: Speci men Type: BLOOD SPECIMEN Ordering Facility: [facility] Address: [address] [place] [address] Performed By: #### 1 4196-0, 94094-7 #### [employer] [facility] CLIA [id number] [address] STATES OF [facility] MCH (RBC) [Entitic mass] 27.4 pg Normal 26.0-34.0 [facility] Comment on above: Order Comment: Speci men Type: BLOOD SPECIMEN Ordering Facility: [facility] Address: [address] [place] [address] Performed By: #### 1 4196-0, 51570-3 #### [facility] CLIA [id number] [address] [place] MCHC (RBC) [Mass/Vol] 34.3 g/dL Normal 30.5-36.0 [facility] Comment on above: Order Comment: Speci men Type: BLOOD SPECIMEN Ordering Facility: [facility] Address: [address] [place] [address] Performed By: #### 1 4196-0, 01463-2 #### [facility] CLIA [id number] [address] [place] MCV (RBC) [Entitic vol] 79.8 fL Low 80.0-100.[address] [facility] Comment on above: Order Comment: Speci men Type: BLOOD SPECIMEN Ordering Facility: [facility] Address: [address] [place] [address] Performed By: #### 1 4196-0, 88778-7 #### [facility] CLIA [id number] [address] STATES [place] Nucleated RBC (Bld) [#/Vol] 10*3/uL Normal <0.01 [facility] Comment on above: Order Comment: Speci men Type: BLOOD SPECIMEN Ordering Facility: [facility] Address: [address] [place] [address] Performed By: #### 1 4196-0, 68785-0 #### [facility] CLIA [id number] [address] [place] Platelet mean volume (Bld) [Entitic vol] 10.6 fL Normal 9.0-12.7 [facility] Comment on above: Order Comment: Speci men Type: BLOOD SPECIMEN Ordering Facility: [facility] Address: [address] [place] [address] Performed By: #### 1 4196-0, 43317-9 #### [facility] CLIA [id number] [address] [place] Platelets (Bld) [#/Vol] 167 10*3/uL Normal 150-400 [facility] Comment on above: Order Comment: Speci men Type: BLOOD SPECIMEN Ordering Facility: [facility] Address: [address] [place] [address] Performed By: #### 1 4196-0, 16724-2 #### [facility] CLIA [id number] [address] OF [facility] RBC (Bld) [#/Vol] 3.32 10*6/uL Low 3.90-5.20 [facility] Comment on above: Order Comment: Speci men Type: BLOOD SPECIMEN Ordering Facility: [facility] Address: [address] [place] [address] Performed By: #### 1 4196-0, 02780-6 #### [facility] CLIA [id number] [address] [place] WBC (Bld) [#/Vol] 12.21 10*3/uL High 3.70-11.00 [facility] Comment on above: Order Comment: Speci men Type: BLOOD SPECIMEN Ordering Facility: [facility] Address: [address] [place] [address] Performed By: #### 1 4196-0, 27758-4 #### [facility] CLIA [id number] [address] [place] [address] OF [facility] CONSULT PROGon 03-24-2023 CONSULT PROG HNO ID: [id number] Author: BRISSA LIMA RPh Service: Pharmacy Author [...] warfarin 5 mg once daily Managed at [facility] 1/29: INR on arrival to [facility] was 9. She was given Vitamin K [...] Laboratory Values Recent Labs 03/24/23 0158 03/23/23 02303/22/23 0325 03/21/23 0425 INR 2.0* 2.1* 2.5* 3.9* Recent Labs 03/24/23 0158 03/23/23 0235 03/22/23 0325 03/21/23 0425 HB 9.1* 7.7* 8.1* 8.6* HCT [...] (SPORANOX) 200 mg ORAL BID phenol 1 [place] (CHLORASEPTIC) 1 [place] MUCOUS MEMBRANE (TOPICAL MOUTH AND THROAT) q [...] education: No- home med Signature: Brissa Lima [facility] Pager/Extension: [phone] Normal [facility] PT panel Coag (PPP)on 2023 INR Coag (PPP) [Relative time] 2.0 {INR} High 0.9-1.3 [facility] Comment on above: Order Comment: Speci men Type: BLOOD SPECIMEN Ordering Facility[facility] Address: [address] [place] [address] Result Comment: Halle min K Antagonist (VKA) Therapeutic Range: INR 2 to 3 (Target INR of 2.5) Note: For patients treated with VKA drugs, such as warfarin, the [employer] 2012 Guideline recommends [...] Chest 2012, 141:7S-47S Mitzi RA, et al. [facility] 2017, 70: 252-289 Performed By: #### 1 4196-0, 76308-4 #### [facility] CLIA [id number] [address] PT Coag (PPP) [Time] 19.7 s High 9.7-13.0 [facility] Comment on above: Order Comment: Renay adkins Type: BLOOD SPECIMEN Ordering Facility: [facility] Address: [address] [place] [address] Performed By: #### 1 4196-0, 20047-3 #### [facility] CLIA [id number] [address] CBC W Ordered Manual Differe ntial panel (Bld)on 03-23-2023 ANISOCYTOSIS Present Normal [facility] Comment on above: Order Comment: Renay adkins Type: BLOOD SPECIMEN Ordering Facility: [facility] Address: [address] [place] [address] Performed By: #### 1 4196-0, 92432-7 #### [facility] CLIA [id number] [address] OF [facility] Basophils (Bld) [#/Vol] 0.00 10*3/uL Normal <0.11 [facility] Comment on above: Order Comment: Speci men Type: BLOOD SPECIMEN Ordering Facility: [facility] Address: [address] [place] [address] Performed By: #### 1 4196-0, 53499-4 #### [facility] CLIA [id number] [address] OF [facility] Basophils/100 WBC (Bld) 0.0 % Normal [facility] Comment on above: Order Comment: Speci men Type: BLOOD SPECIMEN Ordering Facility: [facility] Address: [address] [place] [address] Performed By: #### 1 4196-0, 12396-4 #### [facility] CLIA [id number] [address] OF [facility] Differential cell count method Nom (Bld) Manual Normal [facility] Comment on above: Order Comment: Speci men Type: BLOOD SPECIMEN Ordering Facility[facility] Address: [address] [place] [address] Performed By: #### 1 4196-0, 33917-0 #### [facility] CLIA [id number] [address] OF [place] Eosinophils (Bld) [#/Vol] 0.00 10*3/uL Normal <0.46 [facility] Comment on above: Order Comment: Speci men Type: BLOOD SPECIMEN Ordering Facility[facility] Address: [address] [place] [address] Performed By: #### 1 4196-0, 75065-7 #### [facility] CLIA [id number] [address] OF [place] Eosinophils/100 WBC (Bld) 0.0 % Normal [facility] Comment on above: Order Comment: Speci men Type: BLOOD SPECIMEN Ordering Facility[facility] Address: [address] [place] [address] Performed By: #### 1 4196-0, 76190-6 #### [facility] CLIA [id number] [address] OF [place] Erythrocyte distribution width (RBC) [Ratio] 16.6 % High 11.5-15.0 [facility] Comment on above: Order Comment: Speci men Type: BLOOD SPECIMEN Ordering Facility[facility] Address: [address] [place] [address] Performed By: #### 1 4196-0, 88589-1 #### [facility] CLIA [id number] [address] STATES [place] Hematocrit (Bld) [Volume fraction] 22.8 % Low 36.0-46.0 [facility] Comment on above: Order Comment: Speci men Type: BLOOD SPECIMEN Ordering Facility: [facility] Address: [address] [place] [address] Performed By: #### 1 4196-0, 52069-9 #### [facility] CLIA [id number] [address] [place] [address] [place] Hemoglobin (Bld) [Mass/Vol] 7.7 g/dL Low 11.5-15.5 [facility] Comment on above: Order Comment: Speci men Type: BLOOD SPECIMEN Ordering Facility: [facility] Address: [address] [place] [address] Performed By: #### 1 4196-0, 72312-4 #### [facility] CLIA [id number] [address] [place] [address] [place] Lymphocytes (Bld) [#/Vol] 0.88 10*3/uL Low 1.00-4.00 [facility] Comment on above: Order Comment: Speci men Type: BLOOD SPECIMEN Ordering Facility[facility] Address: [address] [place] [address] Performed By: #### 1 4196-0, 54859-7 #### [facility] CLIA [id number] [address] OF [place] Lymphocytes/100 WBC (Bld) 7.0 % Normal [facility] Comment on above: Order Comment: Speci men Type: BLOOD SPECIMEN Ordering Facility[facility] Address: [address] [place] [address] Performed By: #### 1 4196-0, 97219-0 #### [facility] CLIA [id number] [address] MCH (RBC) [Entitic mass] 27.3 pg Normal 26.0-34.0 [facility] Comment on above: Order Comment: Speci men Type: BLOOD SPECIMEN Ordering [facility] Address: [address] [place] [address] Performed By: #### 1 4196-0, 02337-9 #### [facility] CLIA [id number] [address] [place] [address] MCHC (RBC) [Mass/Vol] 33.8 g/dL Normal 30.5-36.0 [facility] Comment on above: Order Comment: Speci men Type: BLOOD SPECIMEN Ordering Facility[facility] Address: [address] [place] [address] Performed By: #### 1 4196-0, 99291-5 #### [facility] CLIA [id number] [address] [place] [address] MCV (RBC) [Entitic vol] 80.9 fL Normal 80.0-100.[address] [facility] Comment on above: Order Comment: Speci men Type: BLOOD SPECIMEN Ordering Facility[facility] Address: [address] [place] [address] Performed By: #### 1 4196-0, 03474-8 #### [facility] CLIA [id number] [address] [place] [address] META% 2.0 % Normal [facility] Comment on above: Order Comment: Speci men Type: BLOOD SPECIMEN Order[facility] Address: [address] [place] [address] Performed By: #### 1 4196-0, 47328-2 #### [facility] CLIA [id number] [address] [place] [address] [place] Monocytes (Bld) [#/Vol] 1.00 10*3/uL High <0.87 [facility] Comment on above: Order Comment: Speci men Type: BLOOD SPECIMEN Ordering Facility[facility] Address: [address] [place] [address] Performed By: #### 1 4196-0, 91387-6 #### [facility] CLIA [id number] [address] [place] Monocytes/100 WBC (Bld) 8.0 % Normal [facility] Comment on above: Order Comment: Speci men Type: BLOOD SPECIMEN Ordering Facility[facility] Address: [address] [place] [address] Performed By: #### 1 4196-0, 68719-5 #### [facility] CLIA [id number] [address] [place] MYELO% 1.0 % Normal [facility] Comment on above: Order Comment: Speci men Type: BLOOD SPECIMEN Ordering Facility[facility] Address: [address] [place] [address] Performed By: #### 1 4196-0, 98198-6 #### [facility] CLIA [id number] [address] [place] Neutrophils (Bld) [#/Vol] 10.25 10*3/uL High 1.45-7.50 [facility] Comment on above: Order Comment: Speci men Type: BLOOD SPECIMEN Ordering Facility[facility] Address: [address] [place] [address] Performed By: #### 1 4196-0, 33307-9 #### [facility] CLIA [id number] [address] [place] Neutrophils/100 WBC (Bld) 82.0 % Normal [facility] Comment on above: Order Comment: Speci men Type: BLOOD SPECIMEN Order[facility] Facility[facility] Address: [address] [place] [address] Performed By: #### 1 4196-0, 02954-7 #### [facility] CLIA [id number] [address] OF [place] Nucleated RBC (Bld) [#/Vol] 10*3/uL Normal <0.01 [facility] Comment on above: Order Comment: Speci men Type: BLOOD SPECIMEN Order[facility] Facility[facility] Address: [address] [place] [address] Performed By: #### 1 4196-0, 92411-4 #### [facility] CLIA [id number] [address] [place] Nucleated RBC/100 WBC (Bld) [Ratio] 0.0 /100 WBC Normal [facility] Comment on above: Order Comment: Speci men Type: BLOOD SPECIMEN Ordering Facility: [facility] Address: [address] [place] [address] Performed By: #### 1 4196-0, 96638-1 #### [facility] CLIA [id number] [address] STATES [facility] Ovalocytes LM Ql (Bld) Few Normal [facility] Comment on above: Order Comment: Speci men Type: BLOOD SPECIMEN Ordering Facility[facility] Address: [address] [place] [address] Performed By: #### 1 4196-0, 90055-1 #### [facility] CLIA [id number] [address] [place] Platelet mean volume (Bld) [Entitic vol] 10.5 fL Normal 9.0-12.7 [facility] Comment on above: Order Comment: Speci men Type: BLOOD SPECIMEN Order[facility] Facility[facility] Address: [address] [place] [address] Performed By: #### 1 4196-0, 09244-7 #### [facility] CLIA [id number] [address] [place] Platelets (Bld) [#/Vol] 157 10*3/uL Normal 150-400 [facility] Comment on above: Order Comment: Speci men Type: BLOOD SPECIMEN Ordering Facility[facility] Address: [facility] [place] [place] [address] Performed By: #### 1 4196-0, 34928-1 #### [facility] CLIA [id number] [address] Platelets Estimate (Bld) [#/Vol] Adequate Normal [facility] Comment on above: Order Comment: Speci men Type: BLOOD SPECIMEN Order[facility] Facility[facility] Address: [address] [place] [address] Performed By: #### 1 4196-0, 00170-7 #### [facility] CLIA [id number] [address] OF [place] Polychromasia LM Ql (Bld) Slight Normal [facility] Comment on above: Order Comment: Speci men Type: BLOOD SPECIMEN Ordering [facility] Address: [address] [place] [address] Performed By: #### 1 4196-0, 61999-8 #### [facility] CLIA [id number] [address] [place] RBC (Bld) [#/Vol] 2.82 10*6/uL Low 3.90-5.20 [facility] Comment on above: Order Comment: Speci men Type: BLOOD SPECIMEN Ordering Facility: [facility] Address: [address] [place] [address] Performed By: #### 1 4196-0, 81115-6 #### [facility] CLIA [id number] [address] STATES [place] RED CELL MORPH Reviewed: see result s of individual morphologies Normal [facility] Comment on above: Order Comment: Speci men Type: BLOOD SPECIMEN [facility] Address: [address] [place] [address] Performed By: #### 1 4196-0, 25582-5 #### [facility] CLIA [id number] [address] [place] [address] [place] WBC (Bld) [#/Vol] 12.50 10*3/uL High 3.70-11.00 [facility] Comment on above: Order Comment: Speci men Type: BLOOD SPECIMEN Ordering Facility[facility] Address: [address] [place] [address] Performed By: #### 1 4196-0, 08152-6 #### [facility] CLIA [id number] [address] [place] [id number] [facility] OF [facility] CNPNon 03-23-2023 CNPN Telephone ([facility]) HAYDEE BUSTAMANTE ([id number]) 1945 F Date Time Provider Department 03/23/23 RACHELLE LEONARD During your visit today, we recorded the following information about you: Rachelle Leonard, CONNIE.SUSTAINABILITY CONSULTANT 03/23/2023 5:17 PM Signed Please schedule patient to follow with Dr. Hart in 2 months. Thank you Gema Castellanos 03/26/2023 8:01 AM Signed Appointment mailed to pt Gema Castellanos Allergies As of Date: 03/23/2023 Noted Allergy Reaction PENICILLINS 01/04/2005 4 - Hives Date Reviewed: 03/21/2023 Reviewed by: Lilia Olivas, PAULA - Fully Assessed Reason for Visit: Appointment [...] (FLONASE) 50 mcg/actuation nasal spray Use 1 [place] in each nostril once daily. - pantoprazole DR (PROTONIX) 40 mg tablet Take 1 tablet by mouth once daily. - albuterol HFA (PROAIR HFA) 90 mcg/actuation inhaler Inhale 2 Puffs as instructed every 4 hours as needed. - vit A,C,A-Ofpj-Rkecxm (OCUVITE PRESERVISION) 2,148 mcg-113 mg-45 mg-17.4mg tab [...] by this patient by: PATIENT Muna Harris (Ceramic Design Engineer) [facility] for emt intermediate medications. Problem List As Of Date 03/23/2023 [...] nodule [R (more content not included)... Normal [facility] CONSULTon 03-23-2023 CONSULT HNO ID: [id number] Author: CHARLOTTE LAZO MD Service: Cardiovascular Medicine [...] rheumatoid factor (HCC) 03/07/2015 Dr. Hurley ([facility]) Unspecified hemorrhoids without mention of complication [...] SPINE FUSN,POST INTERBODY 2011 Dr. Armando at [facility]. Diskectomy and laminectomy PAST SURGICAL HISTORY [...] nasal spray No Yes Sig: Use 1 [place] in each nostril once daily. gabapentin (NEURONTIN) [...] needed. Keagan (more content not included)... Normal [facility] CONSULT PROGon 03-23-2023 CONSULT PROG HNO ID: [id number] Author: DANY BECKWITH RPh Service: Pharmacy Author Type: Pharmacist Type: Consult Progress Note Filed: 03/23/2023 17:00 Note Text: PHARMACY ANTICOAGULATION CONSULT PATIENT NAME: Haydee Bustamante DATE of SERVICE: 03/23/2023 TIME of SERVICE: 4:06 PM Indication for Anticoagulation: DVT Goal INR: 2.0 to 3.0 Expected Duration of Therapy: Indefinite Assessment: New Start: No Home Dose: Warfarin 5mg once daily Managed at [facility] 03/19: INR on arrival to [facility] was 9. She was given Vitamin K [...] be monitored daily. Recommended post discharge dosing: SYLVAIN Thank you for allowing me to participate [...] (SPORANOX) 200 mg ORAL BID phenol 1 [place] (CHLORASEPTIC) 1 [place] MUCOUS MEMBRANE (TOPICAL MOUTH AND THROAT) q [...] Has patient received education: No Signature: Dany Beckwith [facility] Pager/Extension: [phone] [facility] CONSULT PROG HNO ID: [id number] Author: RACHELLE LEONARD APRN.SUSTAINABILITY CONSULTANT Service: Infectious Disease Author Type: Nurse Practitioner Type: Consult Progress Note Filed: 03/23/2023 17:10 Note Text: PROGRESS NOTE INFECTIOUS DISEASE BRIEF SUMMARY: 77-year-old female history of rheumatoid arthritis on Humira and methotrexate, 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 COVID-positive -Positive at [facility], negative at [facility] 4. RA on Humira and methotrexate 5. [...] mg, ORAL, 2 TIMES DAILY -- 03/22/23 1830 ciprofloxacin HCl 500 mg tab(s) (CIPRO) 500 mg, ORAL, EVERY 12 HOURS 6AM/6PM -- 03/22/23 183 metroNIDAZOLE 500 mg tab(s) (FLAGYL) 500 mg, [...] (SPORANOX) 200 mg ORAL BID phenol 1 [place] (CHLORASEPTIC) 1 [place] MUCOUS MEMBRANE (TOPICAL MOUTH AND THROAT) q [...] rhonchi, ral (more content not included)... Normal [facility] NURSING PROGon 03-23-2023 NURSING PROG HNO ID: [id number] Author: JOHANNA CAPPS, RN Service: ? Author Type: Registered Nurse Type: Nursing Progress Note Filed: 03/23/2023 18:59 Note Text: 1700: Pt refused Warfarin dose due to concerns for INR levels. [employer] notified; plan of care ongoing. Normal [facility] PATHOLOGIST INTERPRETATION C BC/DIFFon 03-23-2023 Stock Plan Administrator review Donte (Unsp spec) [Interp] Reviewed by Jamarcus Blue MD [facility] Comment on above: Order Comment: Renay adkins Type: BLOOD SPECIMEN [facility] Address: [address] [place] [address] Performed By: #### 1 4196-0, 15739-6 #### [facility] CLIA [id number] [address] OF [place] STAFF REVIEW, CBCDIF Normal [facility] Comment on above: Order Comment: Renay adkins Type: BLOOD SPECIMEN [facility]ing Facility[facility] Address: [address] [place] [address] Result Comment: Norm ocytic anemia with slight polychromasia and absolute neutrophilic leukocytosis with left shift. Performed By: #### 1 4196-0, 64087-5 #### [facility] CLIA [id number] [address] [place] [address] OF [place] PT panel Coag (PPP)on 2023 INR Coag (PPP) [Relative time] 2.1 {INR} High 0.9-1.3 [facility] Comment on above: Order Comment: Renay adkins Type: BLOOD SPECIMEN [facility] Address: [address] [place] [address] Result Comment: Halle min K Antagonist (VKA) Therapeutic Range: INR 2 to 3 (Target INR of 2.5) Note: For patients treated with VKA drugs, such as warfarin, the [employer] 2012 Guideline recommends [...] ALEXIS, et al. Chest 2012, 141:7S-47S Mitzi TOLEDO, et al. [facility] 2017, 70: 252-289 Performed By: #### 1 4196-0, 78013-0 #### [facility] CLIA [id number] [address] OF [facility] PT Coag (PPP) [Time] 21.0 s High 9.7-13.0 [facility] Comment on above: Order Comment: Speci men Type: BLOOD SPECIMEN [facility]ing [facility] Address: [address] [place] [address] Performed By: #### 1 4196-0, 50045-6 #### [facility] CLIA [id number] [address] THERAPY NTon 03-23-2023 THERAPY NT HNO ID: [id number] Author: UMANG EASLEY, PT Service: Physical Therapy Author Type: Physical Therapist Type: Therapy (PT/OT/Speech/Resp) Filed: 03/23/2023 15:14 Note Text: Physical Therapy Evaluation Summary SERVICE DATE: 03/23/2023 SERVICE TIME: 1340 to 1355 ROOM: [place] [address] PT 6 Clicks Score: 22 DISCHARGE RECOMMENDATIONS Home ASSESSMENT Response to Therapy Interventions: Good Participation in Activities PRECAUTIONS CURRENT HOSPITAL COURSE presented with hemoptysis, found to be COVID positive at [facility]. Imaging showed intraperitoneal air and pneumatosis intestinalia, [...] Skilled Need TREATMENT INTERVENTIONS Evaluation $ Evaluation-Low (65923) Billed Units: 1 unit Skilled Treatment Time [...] Services Discontinued: No skilled needs SIGNATURE: Umang Easlye PT PATIENT NAME: Haydee Bustamante DATE: March 23, 2023 TIME: 3:13 PM Normal [facility] THERAPY NT HNO ID: [id number] Author: LORI SHORT, OTR/L Service: Occupational Therapy Author Type: Occupational Therapist Type: Therapy (PT/OT/Speech/Resp) Filed: 03/23/2023 11:43 Note Text: Occupational Therapy Evaluation Summary SERVICE DATE: 03/23/2023 SERVICE TIME: 858 to 921 ROOM: [place] [address] OT 6 Clicks Score: 22 DISCHARGE RECOMMENDATIONS [...] hemoptysis, found to be COVID positive at [facility]. Imaging showed intraperitoneal air and pneumatosis intestinalia, [...] daily living (ADL) TREATMENT INTERVENTIONS Evaluation, Self Usp Management (49742) Timed Code Treatment (minutes): 8 Skilled Treatment Time (minutes): 23 $ Evaluation - Low (14223) Billed Units: 1 unit Self Usp Management (22470) Treatment Minutes: 8 $ Self Usp Management (75406) Billed Units: 1 unit TRAINING AND EDUCATION [...] March 23, 2023 TIME: 11:40 AM Normal [facility] ALLIED HEALTHon 03-22-2023 ALLIED HEALTH HNO ID: [id number] Author: TIMUR HERNANDEZ RT(R) Service: Radiology Author Type: Design Editor Type: Allied Health Filed: 03/22/2023 09:43 Note [...] PATIENT PRESENTS WITH AN IMPLANTABLE OR ATTACHED LINING STAMPER: No ALLERGIES: Reviewed and unchanged CONTRAST ALLERGY: [...] March 22, 2023 TIME: 9:43 AM Normal [facility] CBC panel Auto (Bld)on 03-22 Erythrocyte distribution width (RBC) [Ratio] 16.0 % High 11.5-15.0 [facility] Comment on above: Order Comment: Speci men Type: BLOOD SPECIMEN [facility] Facility[facility] Address: [address] [place] [address] Performed By: #### 1 4196-0, 21246-9 #### [facility] CLIA [id number] [address] [place] Hematocrit (Bld) [Volume fraction] 23.1 % Low 36.0-46.0 [facility] Comment on above: Order Comment: Speci men Type: BLOOD SPECIMEN Ordering Facility: [facility] Address: [address] [place] [address] Performed By: #### 1 4196-0, 09662-1 #### [facility] CLIA [id number] [address] [place] [address] [place] Hemoglobin (Bld) [Mass/Vol] 8.1 g/dL Low 11.5-15.5 [facility] Comment on above: Order Comment: Speci men Type: BLOOD SPECIMEN Ordering Facility: [facility] Address: [address] [place] [address] Performed By: #### 1 4196-0, 20982-2 #### [facility] CLIA [id number] [address] [place] [address] [place] MCH (RBC) [Entitic mass] 27.4 pg Normal 26.0-34.0 [facility] Comment on above: Order Comment: Speci men Type: BLOOD SPECIMEN Ordering Facility: [facility] Address: [address] [place] [address] Performed By: #### 1 4196-0, 04702-3 #### [facility] CLIA [id number] [address] [place] [address] [place] MCHC (RBC) [Mass/Vol] 35.1 g/dL Normal 30.5-36.0 [facility] Comment on above: Order Comment: Speci men Type: BLOOD SPECIMEN Ordering Facility: [facility] Address: [address] [place] [address] Performed By: #### 1 4196-0, 44795-2 #### [facility] CLIA [id number] [address] [place] MCV (RBC) [Entitic vol] 78.0 fL Low 80.0-100.0 [facility] Comment on above: Order Comment: Speci men Type: BLOOD SPECIMEN Ordering Facility: [facility] Address: [address] [place] [address] Performed By: #### 1 4196-0, 22474-8 #### [facility] CLIA [id number] [address] Nucleated RBC (Bld) [#/Vol] 10*3/uL Normal <0.01 [facility] Comment on above: Order Comment: Speci men Type: BLOOD SPECIMEN Ordering Facility: [facility] Address: [address] [place] [address] Performed By: #### 1 4196-0, 82544-3 #### [facility] CLIA [id number] [address] [place] Platelet mean volume (Bld) [Entitic vol] 10.3 fL Normal 9.0-12.7 [facility] Comment on above: Order Comment: Speci men Type: BLOOD SPECIMEN Ordering Facility: [facility] Address: [address] [place] [address] Performed By: #### 1 4196-0, 52150-8 #### [facility] CLIA [id number] [address] [place] Platelets (Bld) [#/Vol] 148 10*3/uL Low 150-400 [facility] Comment on above: Order Comment: Speci men Type: BLOOD SPECIMEN Ordering Facility: [facility] Address: [address] [place] [address] Performed By: #### 1 4196-0, 88277-2 #### [facility] CLIA [id number] [address] [place] RBC (Bld) [#/Vol] 2.96 10*6/uL Low 3.90-5.20 [facility] Comment on above: Order Comment: Renay adkins Type: BLOOD SPECIMEN Ordering Facility: [facility] Address: [address] [place] [address] Performed By: #### 1 4196-0, 23863-7 #### [facility] CLIA [id number] [address] [place] WBC (Bld) [#/Vol] 10.53 10*3/uL Normal 3.70-11.00 [facility] Comment on above: Order Comment: Renay adkins Type: BLOOD SPECIMEN [facility]ing [facility] Address: [address] [place] [address] Performed By: #### 1 4196-0, 00937-8 #### [facility] CLIA [id number] [address] OF [facility] CONSULT PROGon 03-22-2023 CONSULT PROG HNO ID: [id number] Author: MAGAN VILLAFUERTE DO Service: Pulmonary Disease [...] enzymes), -GERD, -HTN, -h/o disseminated Histoplasmosis in 3540-8256 managed on itraconazole, ne H an M [...] inside the abdomen. INR on arrival to [facility] was 9. She given Vitamin K and transferred here. 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 No sustained Rx with Amiodarone, Nitrofurantoin, cancer chemotherapy. Smoking h/o: 07-ruwl-uvqr former smoker, quit in 1989. Late was [...] rheumatoid factor (HCC) 03/07/2015 Dr. Hurley ([facility]) Unspecified hemorrhoids without mention of complication [...] SPINE FUSN,POST INTERBODY 2011 Dr. Armando at [facility]. Diskectomy and laminectomy PAST SURGICAL HISTORY OF 03/07/1999 removal facial lesion PAST SURGICAL HISTORY OF 08/17/2014 excision soft tissue mass left index finger TONSILLECTOMY PRIMARY/SECONDARY TRANSCATH RETRIEVAL,PERCUT 12/28/2006 medication ALL (more content not included)... Normal [facility] CT ABD/PEL W IVCONon 024 CT ABD/PEL W IVCON * * *Final Report* * * * * * SEE BOTTOM OF REPORT FOR ADDENDED TEXT * * * DATE OF EXAM: Mar 22 2023 9:46AM [facility] 0530 - CT ABD/PEL W IVCON [...] on 3:17. Stable dating back to 04/04/2018. Crown Presser (topogram) images: No significant additional findings. IMPRESSION: [...] be communicated with the ordering provider via [employer] staff message or phone message by [employer] within 2 business days of report finalization. ========= Algorithms for management of incidental imaging findings can be found on the [facility] Intranet Sharepoint site at: http://spo.ccf.org/document ation/mychartlinks/Managing %20Incidental%20Findi ngs%20at%20Imaging/Forms/Al lItems.aspx Inspector Precision: KRYSTAL Transcribe Date/Time: Mar 22 2023 10:59A Dictated by : MIRIAN CHENEY MD This examination was interpreted and the report reviewed and electronically signed by: MIRIAN CHENEY MD on Mar 22 2023 10:43AM EST This document has been addended by: MIRIAN CHENEY MD on Mar 22 2023 11:00AM EST [id number] Normal [facility] Comp Metab 2000 Pnl SerPlon 03-22-2023 Bilirubin [Mass/Vol] 0.8 mg/dL Normal 0.2-1.3 [facility] Comment on above: Order Comment: Speci men Type: BLOOD SPECIMENOrdering Facility: [facility] Address: [address] [place] [address] Performed By: #### 2 4325-3, 08637-0 ####[facility]ORYCLIA [id number] [place] [address] [place] Comprehensive metabolic 2000 panelon 03-22-2023 Albumin [Mass/Vol] 2.7 g/dL Low 3.9-4.9 [facility] Comment on above: Order Comment: Speci men Type: BLOOD SPECIMENOrdering Facility: [facility] Address: [address] [place] [address] Performed By: #### 2 4325-3, ####[facility] [id number] [address] STATES OF [facility] ALP [Catalytic activity/Vol] 201 U/L High 34-123 [facility] Comment on above: Order Comment: Speci men Type: BLOOD SPECIMENOrdering Facility: [facility] Address: [address] [place] [address] Performed By: #### 2 432-3, ####[facility]ORYCLIA [id number] [address] STATES OF [facility] ALT With P-5'-P [Catalytic activity/Vol] 54 U/L High 7-38 [facility] Comment on above: Order Comment: Speci men Type: BLOOD SPECIMENOrdering Facility: [facility] Address: [address] [place] [address] Performed By: #### 2 4324-3, ####[facility]ORYCLIA [id number] [address] STATES OF [facility] Anion gap [Moles/Vol] 8 mmol/L Low 9-18 [facility] Comment on above: Order Comment: Speci men Type: BLOOD SPECIMENOrdering Facility: [facility] Address: [address] [place] [address] Performed By: #### 2 4324-3, 87791-3 ####[facility]IA [id number] [address] [place] AST With P-5'-P [Catalytic activity/Vol] 33 U/L Normal 13-35 [facility] Comment on above: Order Comment: Speci men Type: BLOOD SPECIMENOrdering Facility: [facility] Address: [address] [place] [address] Performed By: #### 2 4325-3, 22640-8 ####[facility]ORYCLIA [id number] [place] [address] [place] Calcium [Mass/Vol] 8.8 mg/dL Normal 8.5-10.2 [facility] Comment on above: Order Comment: Speci men Type: BLOOD SPECIMENOrdering Facility: [facility] Address: [address] [place] [address] Performed By: #### 2 4325-3, 18194-6 ####[facility]ORYCLIA [id number] [place] [address] [place] Chloride [Moles/Vol] 100 mmol/L Normal 97-105 [facility] Comment on above: Order Comment: Speci men Type: BLOOD SPECIMENOrdering Facility: [facility] Address: [address] [place] [address] Performed By: #### 2 4325-3, 41205-2 ####[facility]ORYCLIA [id number] [address] [place] CO2 [Moles/Vol] 26 mmol/L Normal 22-30 [facility] Comment on above: Order Comment: Speci men Type: BLOOD SPECIMENOrdering Facility: [facility] Address: [address] [place] [address] Performed By: #### 2 4325-3, 69617-3 ####[facility]ORYCLIA [id number] [address] [place] Creatinine [Mass/Vol] 0.83 mg/dL Normal 0.58-0.96 [facility] Comment on above: Order Comment: Speci men Type: BLOOD SPECIMENOrdering Facility: [facility] Address: [address] [place] [address] Performed By: #### 2 4325-3, 82692-9 ####[facility]ATORYCLIA [id number] [address] Creatinine and Glomerular filtration rate.predicted panel (S/P/Bld) 74 mL/min/1.73m??? Normal >=60 [facility] Comment on above: Order Comment: Speci men Type: BLOOD SPECIMENOrdering Facility: [facility] Address: [address] [place] [address] Result Comment: Meaghan mated Glomerular Filtration Rate [...] actual GFR. Performed By: #### 2 4325-3, 59734-8 ####[facility]ATORYCLIA [id number] [place] [address] [place] Glucose [Mass/Vol] 158 mg/dL High 74-99 [facility] Comment on above: Order Comment: Renay adkins Type: BLOOD SPECIMENOrdering Facility: [facility] Address: [address] [place] [address] Result Comment: The [place] [employer] (ADA) provides guidance for cutoff [...] Standards of Medical Care in Diabetes 2016, [place] [employer]. Diabetes Care. 2016.39(Suppl 1). Performed By: #### 2 4325-3, 24867-9 ####[facility]ATORYCLIA [id number] [place] [id number] [place] Potassium [Moles/Vol] 4.0 mmol/L Normal 3.7-5.1 [facility] Comment on above: Order Comment: Renay adkins Type: BLOOD SPECIMENOrdering Facility: [facility] Address: [address] [place] [address] Performed By: #### 2 4325-3, 22873-3 ####[facility]ATORYCLIA [id number] [place] [address] [place] Protein [Mass/Vol] 4.9 g/dL Low 6.3-8.0 [facility] Comment on above: Order Comment: Speci men Type: BLOOD SPECIMENOrdering Facility: [facility] Address: [address] [place] [address] Performed By: #### 2 4325-3, 57056-5 ####[facility]ATORYCLIA [id number] [place] [address] [place] Sodium [Moles/Vol] 134 mmol/L Low 136-144 [facility] Comment on above: Order Comment: Speci men Type: BLOOD SPECIMENOrdering Facility: [facility] Address: [address] [place] [address] Performed By: #### 2 4325-3, 61366-6 ####[facility]ATORYCLIA [id number] [place] [id number] [place] Urea nitrogen [Mass/Vol] 24 mg/dL High 7-21 [facility] Comment on above: Order Comment: Speci men Type: BLOOD SPECIMENOrdering Facility: [facility] Address: [address] [place] [address] Performed By: #### 2 4325-3, 46693-7 ####[facility]ATORYCLIA [id number] [place] [id number] [place] ECHOon 03-22-2023 Echocardiography Echocardiography Rep ort: Transthoracic Echo [facility] Date of service: 03/22/2023 12:34:35 PM [facility] Ordering physician: AMERICA MAYER Indication: Re-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 heart disease with change in clinical status Technologist: Jamarcus Fraser [facility] Interpreting physician: Jb Richardson MD PATIENT: Name: [...] to mitral (more content not included)... Normal [facility] Haptoglob SerPl-mCncon 03-22 Haptoglobin [Mass/Vol] 95 mg/dL Normal 31-238 [facility] Comment on above: Order Comment: Speci men Type: BLOOD SPECIMEN [facility] Address: [address] [place] [address] Performed By: #### 1 4196-0, 38398-3 #### [facility] CLIA [id number] [address] [place] Hepatic function 2000 panelo n 03-22-2023 Albumin [Mass/Vol] 2.6 g/dL Low 3.9-4.9 [facility] Comment on above: Order Comment: Speci men Type: BLOOD SPECIMENOrdering Facility: [facility] Address: [address] [place] [address] Performed By: #### 2 4325-3, 07639-4 ####[facility]ATORYCLIA [id number] [place] [address] [place] ALP [Catalytic activity/Vol] 200 U/L High 34-123 [facility] Comment on above: Order Comment: Speci men Type: BLOOD SPECIMENOrdering Facility: [facility] Address: [address] [place] [address] Performed By: #### 2 4325-3, 44265-8 ####[facility]ATORYCLIA [id number] [place] [address] [place] ALT With P-5'-P [Catalytic activity/Vol] 53 U/L High 7-38 [facility] Comment on above: Order Comment: Speci men Type: BLOOD SPECIMENOrdering Facility: [facility] Address: [address] [place] [address] Performed By: #### 2 4325-3, 93331-2 ####[facility]ATORYCLIA [id number] [place] [address] [place] AST With P-5'-P [Catalytic activity/Vol] 38 U/L High 13-35 [facility] Comment on above: Order Comment: Speci men Type: BLOOD SPECIMENOrdering Facility: [facility] Address: [address] [place] [address] Performed By: #### 2 4325-3, 11574-1 ####[facility]ATORYCLIA [id number] [place] [address] [place] Bilirubin.conjugated [Mass/Vol] 0.3 mg/dL High <0.2 [facility] Comment on above: Order Comment: Speci men Type: BLOOD SPECIMENOrdering Facility: [facility] Address: [address] [place] [address] Performed By: #### 2 4325-3, 39380-7 ####[facility]ATORYCLIA [id number] [place] [address] [place] Protein [Mass/Vol] 5.1 g/dL Low 6.3-8.0 [facility] Comment on above: Order Comment: Speci men Type: BLOOD SPECIMENOrdering Facility: [facility] Address: [address] [place] [address] Performed By: #### 2 4325-3, 21590-2 ####[facility]ATORYCLIA [id number] [place] [address] [place] LDH SerPl-cCncon 03-22-2023 LDH [Catalytic activity/Vol] 300 U/L High 135-214 [facility] Comment on above: Order Comment: Speci men Type: BLOOD SPECIMEN [facility] Address: [address] [place] [address] Performed By: #### 1 4196-0, 80928-6 #### [facility] CLIA [id number] 1 [place] [address] [place] Lactate (Bld) [Moles/Vol]on 03-22-2023 Lactate [Moles/Vol] 1.7 mmol/L Normal 0.5-2.2 [facility] Comment on above: Order Comment: Speci men Type: BLOOD SPECIMEN [facility] Address: [address] [place] [address] Performed By: #### 1 4196-0, 65659-6 #### [facility] CLIA [id number] [address] [place] NURSING PROGon 03-22-2023 NURSING PROG HNO ID: [id number] Author: OJ MOLINA, RN Service: Nursing Author Type: Registered Nurse Type: Nursing Progress Note Filed: 03/22/2023 09:58 Note Text: Pt to remain in isolation d/t positive covid test at [place] and pt being immunocompromised. Orders received from Dr Geno Hart. Normal [facility] PT panel Coag (PPP)on 2023 INR Coag (PPP) [Relative time] 2.5 {INR} High 0.9-1.3 [facility] Comment on above: Order Comment: Renay adkins Type: BLOOD SPECIMENOrdering Facility: [facility] Address: [address] [place] [address] Result Comment: Halle min K Antagonist (VKA) Therapeutic Range: INR 2 to 3 (Target INR of 2.5) Note: For patients treated with VKA drugs, such as warfarin, the [place] [employer] 2012 Guideline recommends [...] JACC 2017, 70: 252-289 Performed By: #### 3 4528-0 ####[facility]ATORYCLIA [id number] [address] [place] PT Coag (PPP) [Time] 24.6 s High 9.7-13.0 [facility] Comment on above: Order Comment: Speci men Type: BLOOD SPECIMENOrdering Facility: [facility] Address: [address] [place] [address] Performed By: #### 3 4528-0 ####[facility]ATORYCLIA [id number] [address] Retics #on 03-22-2023 Reticulocytes (Bld) [#/Vol] 0.66670 10*3/uL Normal 0.018-0.10 0 [facility] Comment on above: Order Comment: Speci men Type: BLOOD SPECIMEN [facility] Address: [address] [place] [address] Performed By: #### 1 4196-0, 36026-3 #### [facility] CLIA [id number] [address] [place] [address] Reticulocytes (Bld) [#/Vol]o n 03-22-2023 Reticulocytes/100 RBC (Bld) 2.9 % High 0.4-2.0 [facility] Comment on above: Order Comment: Speci men Type: BLOOD SPECIMEN [facility] Address: [address] [place] [address] Performed By: #### 1 4196-0, 22978-0 #### [facility] CLIA [id number] [address] [place] [address] CBC panel Auto (Bld)on 03-21 Erythrocyte distribution width (RBC) [Ratio] 16.2 % High 11.5-15.0 [facility] Comment on above: Order Comment: Speci men Type: BLOOD SPECIMEN [facility] Address: [address] [place] [address] Performed By: #### 1 4196-0, 04144-9 #### [facility] CLIA [id number] [address] [place] [address] Hematocrit (Bld) [Volume fraction] 25.9 % Low 36.0-46.0 [facility] Comment on above: Order Comment: Speci men Type: BLOOD SPECIMEN [facility] Address: [address] [place] [address] Performed By: #### 1 4196-0, 95159-4 #### [facility] CLIA [id number] [address] STATES OF [facility] Hemoglobin (Bld) [Mass/Vol] 8.6 g/dL Low 11.5-15.5 [facility] Comment on above: Order Comment: Speci men Type: BLOOD SPECIMEN [facility] Address: [address] [place] [address] Performed By: #### 1 4196-0, 61857-5 #### [facility] CLIA [id number] [address] [place] [address] OF [facility] MCH (RBC) [Entitic mass] 26.8 pg Normal 26.0-34.0 [facility] Comment on above: Order Comment: Speci men Type: BLOOD SPECIMEN [facility] Address: [address] [place] [address] Performed By: #### 1 4196-0, 12454-7 #### [facility] CLIA [id number] [address] [place] [address] OF [facility] MCHC (RBC) [Mass/Vol] 33.2 g/dL Normal 30.5-36.0 [facility] Comment on above: Order Comment: Speci men Type: BLOOD SPECIMEN [facility] Address: [address] [place] [address] Performed By: #### 1 4196-0, 57144-2 #### [facility] CLIA [id number] [address] [place] MCV (RBC) [Entitic vol] 80.7 fL Normal 80.0-100.[address] [facility] Comment on above: Order Comment: Speci men Type: BLOOD SPECIMEN [facility] Address: [address] [place] [address] Performed By: #### 1 4196-0, 45202-9 #### [facility] CLIA [id number] [address] [place] Nucleated RBC (Bld) [#/Vol] 10*3/uL Normal <0.01 [facility] Comment on above: Order Comment: Speci men Type: BLOOD SPECIMEN [facility] Address: [address] [place] [address] Performed By: #### 1 4196-0, 58943-7 #### [facility] CLIA [id number] [address] [place] [address] [place] Platelet mean volume (Bld) [Entitic vol] 10.6 fL Normal 9.0-12.7 [facility] Comment on above: Order Comment: Speci men Type: BLOOD SPECIMEN [facility] Address: [address] [place] [address] Performed By: #### 1 4196-0, 18643-8 #### [facility] CLIA [id number] [address] [place] [address] [place] Platelets (Bld) [#/Vol] 148 10*3/uL Low 150-400 [facility] Comment on above: Order Comment: Speci men Type: BLOOD SPECIMEN [facility] Address: [address] [place] [address] Performed By: #### 1 4196-0, 95643-5 #### [facility] CLIA [id number] [address] [place] RBC (Bld) [#/Vol] 3.21 10*6/uL Low 3.90-5.20 [facility] Comment on above: Order Comment: Speci men Type: BLOOD SPECIMEN [facility] Address: [address] [place] [address] Performed By: #### 1 4196-0, 92117-3 #### [facility] CLIA [id number] [address] [place] [address] [place] WBC (Bld) [#/Vol] 6.94 10*3/uL Normal 3.70-11.00 [facility] Comment on above: Order Comment: Speci men Type: BLOOD SPECIMEN [facility]ing Facility: [facility] Address: [address] [id number] Performed By: #### 1 4196-0, 79184-0 #### [facility] CLIA [id number] [address] OF [facility] CONSULTon 03-21-2023 CONSULT HNO ID: [id number] Author: SHERIN SHEA DO Service: Hospital Medicine Author Type: Physician Type: Consults Filed: 03/21/2023 17:37 Note Text: DEPARTMENT OF HOSPITAL MEDICINE INITIAL CONSULT SERVICE DATE: 03/21/2023 SERVICE TIME: 10:03 AM Primary Care Physician: Claudine Durán MD NIGHT AND WEEKEND COVERAGE: [place] COVERAGE: After 7pm, please call cross cover pager #[phone] REASON FOR CONSULT: possibly assume care REQUESTING PHYSICIAN: Alan Subjective CHIEF COMPLAINT: hemoptysis HPI: This is a 77 year old female with PMH RA on humira, HTN, disseminated histo, 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 Reportedly found to be COVID+ in [place] and intraperitoneal air and pneumatosis intestinalis noted [...] rheumatoid factor (HCC) 03/07/2015 Dr. Hurley ([facility]) Unspecified hemorrhoids without mention of complication [...] SPINE FUSN,POST INTERBODY 2012 Dr. Armando at [facility]. Diskectomy and laminectomy PAST SURGICAL HISTORY [...] 4 H PRN remdesivir in NaCl 0.9% Vial-Mate/ADD-Peru 100 mg 275 mL 100 mg INTRAVENOUS [...] (SPORANOX) 200 mg ORAL BID phenol 1 [place] (CHLORASEPTIC) 1 [place] MUCOUS MEMBRANE (TOPICAL MOUTH AND THROAT) q 2 H PRN . ALLERGIES Allerg (more content not included)... 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 INR on arrival to [place] was 9. She given Vitamin K and transferred here. 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 No sustained Rx with Amiodarone, Nitrofurantoin, cancer chemotherapy. Smoking h/o: 33-bdiv-tbdf former smoker, quit in 1989. Late was [...] Diverticulosis DVT, recurrent, lower extremity, acute ([facility]) 12/10/2014 Esophageal reflux Hiatal hernia 02/25/2018 Hypertension Lung nodule Personal history of unspecified urinary disorder Rheumatoid arthritis involving multiple sites with positive rheumatoid factor ([facility]) 03/07/2015 Dr. Hurley ([facility]) Unspecified hemorrhoids without mention of complication [...] SPINE FUSN,POST INTERBODY 2011 Dr. Armando at [facility]. Diskectomy and laminectomy PAST SURGICAL HISTORY OF 03/07/1999 removal facial lesion PAST SURGICAL HISTORY OF 08/17/2014 excision soft tissue mass left index finger TONSILLECTOMY PRIMARY/ (more content not included)... Normal [facility] Comprehensive metabolic 2000 panelon 03-21-2023 Albumin [Mass/Vol] 2.8 g/dL Low 3.9-4.9 [facility] Comment on above: Order Comment: Speci men Type: BLOOD SPECIMEN Ordering Facility: [facility] Address: [address] [place] [address] Performed By: #### 2 4323-8, 22262-8 #### [facility] CLIA [id number] [address] OF [place] ALP [Catalytic activity/Vol] 215 U/L High 34-123 [facility] Comment on above: Order Comment: Speci men Type: BLOOD SPECIMEN Ordering Facility: [facility] Address: [address] [place] [address] Performed By: #### 2 4323-8, 15703-8 #### [facility] CLIA [id number] [address] OF [facility] ALT With P-5'-P [Catalytic activity/Vol] 62 U/L High 7-38 [facility] Comment on above: Order Comment: Speci men Type: BLOOD SPECIMEN Ordering Facility: [facility] Address: [address] [place] [address] Performed By: #### 2 4323-8, 34367-2 #### [facility] CLIA [id number] [address] Anion gap [Moles/Vol] 7 mmol/L Low 9-18 [facility] Comment on above: Order Comment: Speci men Type: BLOOD SPECIMEN Ordering Facility: [facility] Address: [address] [place] [address] Performed By: #### 2 4323-8, 60745-2 #### [facility] CLIA [id number] [address] AST With P-5'-P [Catalytic activity/Vol] 42 U/L High 13-35 [facility] Comment on above: Order Comment: Speci men Type: BLOOD SPECIMEN Ordering Facility: [facility] Address: [address] [place] [address] Performed By: #### 2 4323-8, 89438-8 #### [facility] CLIA [id number] [address] OF [place] Bilirubin [Mass/Vol] 0.6 mg/dL Normal 0.2-1.3 [facility] Comment on above: Order Comment: Speci men Type: BLOOD SPECIMEN Ordering Facility: [facility] Address: [address] [place] [address] Performed By: #### 2 4323-8, 63885-5 #### [facility] CLIA [id number] [address] [place] Calcium [Mass/Vol] 8.5 mg/dL Normal 8.5-10.2 [facility] Comment on above: Order Comment: Speci men Type: BLOOD SPECIMEN Ordering Facility: [facility] Address: [address] [place] [address] Performed By: #### 2 4323-8, 02481-6 #### [facility] CLIA [id number] 1 [place] [address] [place] Chloride [Moles/Vol] 97 mmol/L Normal 97-105 [facility] Comment on above: Order Comment: Speci men Type: BLOOD SPECIMEN Ordering Facility: [facility] Address: [address] [place] [address] Performed By: #### 2 4323-8, 52323-7 #### [facility] CLIA [id number] 1 [place] [address] [place] CO2 [Moles/Vol] 26 mmol/L Normal 22-30 [facility] Comment on above: Order Comment: Speci men Type: BLOOD SPECIMEN Ordering Facility: [facility] Address: [address] [place] [address] Performed By: #### 2 4323-8, 21896-7 #### [facility] CLIA [id number] 1 [place] [address] [place] Creatinine [Mass/Vol] 0.93 mg/dL Normal 0.58-0.96 [facility] Comment on above: Order Comment: Speci men Type: BLOOD SPECIMEN Ordering Facility: [facility] Address: [address] [place] [address] Performed By: #### 2 4323-8, 04410-9 #### [facility] CLIA [id number] [address] [place] Creatinine and Glomerular filtration rate.predicted panel (S/P/Bld) 64 mL/min/1.73m??? Normal >=60 [facility] Comment on above: Order Comment: Renay adkins Type: BLOOD SPECIMEN Ordering Facility: [facility] Address: [address] [place] [address] Result Comment: Meaghan mated Glomerular Filtration Rate [...] actual GFR. Performed By: #### 2 4323-8, 49332-8 #### [facility] CLIA [id number] [address] [place] [address] [place] Glucose [Mass/Vol] 162 mg/dL High 74-99 [facility] Comment on above: Order Comment: Renay adkins Type: BLOOD SPECIMEN Ordering Facility: [facility] Address: [address] [place] [address] Result Comment: The [place] Diabetes [employer] (ADA) provides guidance for cutoff [...] Standards of Medical Care in Diabetes 2016, [place] [employer]. Diabetes Care. 2016.39(Suppl 1). Performed By: #### 2 4323-8, 71797-5 #### [facility] CLIA [id number] 1 [place] [address] [place] Potassium [Moles/Vol] 4.5 mmol/L Normal 3.7-5.1 [facility] Comment on above: Order Comment: Speci men Type: BLOOD SPECIMEN Ordering Facility[facility] Address: [address] [place] [address] Performed By: #### 2 4323-8, 70898-4 #### [facility] CLIA [id number] [address] [place] Protein [Mass/Vol] 5.0 g/dL Low 6.3-8.0 [facility] Comment on above: Order Comment: Speci men Type: BLOOD SPECIMEN Ordering Facility[facility] Address: [address] [place] [address] Performed By: #### 2 4323-8, 22600-1 #### [facility] CLIA [id number] [address] STATES OF [facility] Sodium [Moles/Vol] 130 mmol/L Low 136-144 [facility] Comment on above: Order Comment: Speci men Type: BLOOD SPECIMEN Ordering Facility: [facility] Address: [address] [place] [address] Performed By: #### 2 4323-8, 03562-1 #### [facility] CLIA [id number] [address] [place] Urea nitrogen [Mass/Vol] 19 mg/dL Normal 7-21 [facility] Comment on above: Order Comment: Speci men Type: BLOOD SPECIMEN Ordering Facility: [facility] Address: [address] [place] [address] Performed By: #### 2 4323-8, 15540-2 #### [facility] CLIA [id number] [address] [place] ECG COMPLETEon 03-21-2023 ECG COMPLETE Ventricular Rate : 1 03 BPM Atrial Rate : 103 BPM P-R Interval : 134 ms QRS Duration : 80 ms Q-T Interval : 336 ms QTC Calculation(Bazett) : 440 ms Calculated P [place] : 55 degrees Calculated R [place] : 28 degrees Calculated T [place] : 33 degrees SINUS TACHYCARDIA POSSIBLE LEFT ATRIAL ENLARGEMENT LOW VOLTAGE QRS CANNOT RULE OUT ANTERIOR INFARCT , AGE UNDETERMINED ABNORMAL ECG NO PREVIOUS ECGS AVAILABLE Confirmed by MD THAO THOMAS ([id number]) on 03/29/2023 8:55:56 PM NAME : HAYDEE BUSTAMANTE PID : [id number] : 1945 Gender : Female Race : ORD : [id number] Procedure Date : Mar 21 2023 09:24:27 Edit Date : Mar 29 2023 20:55:58 Diagnosis: SINUS TACHYCARDIA POSSIBLE LEFT ATRIAL ENLARGEMENT LOW VOLTAGE QRS CANNOT RULE OUT ANTERIOR INFARCT , AGE UNDETERMINED ABNORMAL ECG NO PREVIOUS ECGS AVAILABLE Confirmed by MD THAO THOMAS ([id number]) on 03/29/2023 8:55:56 PM Test Reason : Check QT Location : 4 : [facility] Overread By : MD THAO THOMAS Edited By : MD THAO THOMAS Referred By : , Acquired by : BREN CELIS [facility] ED NOTEon 03-21-2023 ED NOTE HNO ID: [id number] Author: MAGALYS PHILLIPS RN Service: ? Author Type: Registered Nurse Type: ED Notes Filed: 03/21/2023 15:01 Note Text: Report given to Lilia MITCHELL 5100 at this time. No further questions at this time. [facility] ED NOTE HNO ID: [id number] Author: ELKE PELAEZ RN Service: Emergency Medicine Author Type: Registered Nurse Type: ED Notes Filed: 03/21/2023 03:09 Note Text: REPORT GIVEN TO ARJUN MITCHELL [facility] PT panel Coag (PPP)on 2023 INR Coag (PPP) [Relative time] 3.9 {INR} High 0.9-1.3 [facility] Comment on above: Order Comment: Speci men Type: BLOOD SPECIMEN Order[facility] Address: [address] [id number] Result Comment: Halle min K Antagonist (VKA) Therapeutic Range: INR 2 to 3 (Target INR of 2.5) Note: For patients treated with VKA drugs, such as warfarin, the [place] [employer] 2012 Guideline recommends [...] ALEXIS, et al. Chest 2012, 141:7S-47S Mitzi TOLEDO, et al. [facility] 2017, 70: 252-289 Performed By: #### 1 4196-0, 43297-6 #### [facility] CLIA [id number] [address] STATES OF [facility] PT Coag (PPP) [Time] 37.0 s High 9.7-13.0 [facility] Comment on above: Order Comment: Renay adkins Type: BLOOD SPECIMEN Ordering Facility[facility] Address: [address] [place] [address] Performed By: #### 1 4196-0, 01888-3 #### [facility] CLIA [id number] [address] Procalcitonin SerPl-mCncon 0 03-21-2023 Procalcitonin [Mass/Vol] 0.18 ng/mL High <0.09 [facility] Comment on above: Order Comment: Renay adkins Type: BLOOD SPECIMEN Ordering Facility: [facility] Address: [address] [place] [address] Result Comment: For a guided interpretation of test results, please visit the Change in Procalcitonin Calculator, [email or web address]. Performed By: #### 2 4323-8, 89916-8 #### [facility] CLIA [id number] [address] OF [facility] XR CHEST 1V FRONTALon 2023 XR CHEST [...] small left pleural effusion versus pleural thickening Inspector Precision: [place] Transcribe Date/Time: Mar 21 2023 11:07P Dictated by : JANNET MCGOWAN MD This examination was interpreted and the report reviewed and electronically signed by: JANNET MCGOWAN MD on Mar 21 2023 11:10PM EST [id number] Normal [facility] BLOOD TB SCREEN, INCUBATEDon 03-20-2023 M. tuberculosis tuberculin stim IFN-g Ql (Bld) Negative Normal [facility] Comment on above: Order Comment: Renay adkins Type: BLOOD SPECIMEN [facility] Address: [address] [place] [address] Performed By: #### 1 4196-0, 32505-1 #### [facility] CLIA [id number] [address] STATES [facility] MITOGEN MINUS NIL >7.27 Normal >=0.50 [facility] Comment on above: Order Comment: Renay adkins Type: BLOOD SPECIMEN Ordering [facility] Address: [address] [place] [address] Performed By: #### 1 4196-0, 93881-4 #### [facility] CLIA [id number] [address] TB GAMMA INTERPRETATION Infection with M . tuberculosis complex is unlikely. If latent tuberculosis infection is highly suspected, a negative result does not rule out the infection. Specimens from immunocompromised patients and those <5 years of age may show false negative results. In case of a contact investigation, please repeat 8-12 weeks after a known exposure. Normal [facility] Comment on above: Order Comment: Speci men Type: BLOOD SPECIMEN Ordering Facility[facility] Address: [address] [place] [address] Performed By: #### 1 4196-0, 73157-5 #### [facility] CLIA [id number] [address] TB NIL 2.73 IU/mL Normal <=8.00 [facility] Comment on above: Order Comment: Speci men Type: BLOOD SPECIMEN Ordering Facility[facility] Address: [address] [place] [address] Performed By: #### 1 4196-0, 93876-3 #### [facility] CLIA [id number] [address] TB1 AG MINUS NIL <0.00 Normal <0.35 [facility] Comment on above: Order Comment: Speci men Type: BLOOD SPECIMEN Ordering [facility] Address: [address] [place] [address] Performed By: #### 1 4196-0, 97342-5 #### [facility] CLIA [id number] [address] TB2 AG MINUS NIL <0.00 Normal <0.35 [facility] Comment on above: Order Comment: Speci men Type: BLOOD SPECIMEN Ordering [facility] Address: [address] [place] [address] Performed By: #### 1 4196-0, 65001-7 #### [facility] CLIA [id number] [address] OF [place] Basic metabolic 2000 panelon 03-20-2023 Anion gap [Moles/Vol] 8 mmol/L Low 9-18 [facility] Comment on above: Order Comment: Speci men Type: BLOOD SPECIMEN Ordering [facility] Address: [address] [place] [address] Performed By: #### 1 4196-0, 57959-1 #### [facility] CLIA [id number] [address] Calcium [Mass/Vol] 8.4 mg/dL Low 8.5-10.2 [facility] Comment on above: Order Comment: Speci men Type: BLOOD SPECIMEN Ordering [facility] Address: [address] [place] [address] Performed By: #### 1 4196-0, 13166-3 #### [facility] CLIA [id number] [address] [place] Chloride [Moles/Vol] 96 mmol/L Low 97-105 [facility] Comment on above: Order Comment: Speci men Type: BLOOD SPECIMEN [facility]ing [facility] Address: [address] [place] [address] Performed By: #### 1 4196-0, 38361-5 #### [facility] CLIA [id number] [address] CO2 [Moles/Vol] 24 mmol/L Normal 22-30 [facility] Comment on above: Order Comment: Speci men Type: BLOOD SPECIMEN [facility] Address: [address] [place] [address] Performed By: #### 1 4196-0, 33341-1 #### [facility] CLIA [id number] [address] OF [facility] Creatinine [Mass/Vol] 0.84 mg/dL Normal 0.58-0.96 [facility] Comment on above: Order Comment: Speci men Type: BLOOD SPECIMEN Ordering Facility[facility] Address: [address] [place] [address] Performed By: #### 1 4196-0, 31110-0 #### [facility] CLIA [id number] [address] Creatinine and Glomerular filtration rate.predicted panel (S/P/Bld) 73 mL/min/1.73m??? Normal >=60 [facility] Comment on above: Order Comment: Speci men Type: BLOOD SPECIMEN Order[facility] Address: [address] [place] [address] Result Comment: Meaghan mated Glomerular Filtration Rate [...] actual GFR. Performed By: #### 1 4196-0, 81787-2 #### [employer] [facility] CLIA [id number] [address] [place] [address] [place] Glucose [Mass/Vol] 77 mg/dL Normal 74-99 [facility] Comment on above: Order Comment: Renay adkins Type: BLOOD SPECIMEN Ordering Facility[facility] Address: [address] [place] [address] Result Comment: The [place] Diabetes [employer] (ADA) provides guidance for cutoff [...] Standards of Medical Care in Diabetes 2016, [place] [employer]. Diabetes Care. 2016.39(Suppl 1). Performed By: #### 1 4196-0, 82108-0 #### [employer] [facility] CLIA [id number] 1 [place] [address] [place] Potassium [Moles/Vol] 3.9 mmol/L Normal 3.7-5.1 [facility] Comment on above: Order Comment: Renay adkins Type: BLOOD SPECIMEN [facility] Address: [address] [place] [address] Performed By: #### 1 4196-0, 20462-0 #### [employer] [facility] CLIA [id number] [address] [place] Sodium [Moles/Vol] 128 mmol/L Low 136-144 [facility] Comment on above: Order Comment: Speci men Type: BLOOD SPECIMEN [facility] Address: [address] [place] [address] Performed By: #### 1 4196-0, 00719-4 #### [facility] CLIA [id number] [address] [place] Urea nitrogen [Mass/Vol] 25 mg/dL High 7-21 [facility] Comment on above: Order Comment: Speci men Type: BLOOD SPECIMEN [facility] Address: [address] [place] [address] Performed By: #### 1 4196-0, 06023-4 #### [facility] CLIA [id number] [address] STATES OF [facility] CBC panel Auto (Bld)on 03-20 Erythrocyte distribution width (RBC) [Ratio] 16.3 % High 11.5-15.0 [facility] Comment on above: Order Comment: Speci men Type: BLOOD SPECIMEN [facility] Address: [address] [place] [address] Performed By: #### 1 4196-0, 92966-8 #### [facility] CLIA [id number] [address] [place] Hematocrit (Bld) [Volume fraction] 24.6 % Low 36.0-46.0 [facility] Comment on above: Order Comment: Speci men Type: BLOOD SPECIMEN [facility] Address: [address] [place] [address] Performed By: #### 1 4196-0, 54769-6 #### [facility] CLIA [id number] [address] [place] Hemoglobin (Bld) [Mass/Vol] 8.1 g/dL Low 11.5-15.5 [facility] Comment on above: Order Comment: Speci men Type: BLOOD SPECIMEN [facility] Address: [address] [place] [address] Performed By: #### 1 4196-0, 52380-2 #### [facility] CLIA [id number] [address] MCH (RBC) [Entitic mass] 26.9 pg Normal 26.0-34.0 [facility] Comment on above: Order Comment: Speci men Type: BLOOD SPECIMEN [facility] Address: [address] [place] [address] Performed By: #### 1 4196-0, 40944-7 #### [facility] CLIA [id number] [address] [place] [address] MCHC (RBC) [Mass/Vol] 32.9 g/dL Normal 30.5-36.0 [facility] Comment on above: Order Comment: Speci men Type: BLOOD SPECIMEN Ordering [facility] Address: [address] [place] [address] Performed By: #### 1 4196-0, 88288-5 #### [facility] CLIA [id number] [address] [place] [address] MCV (RBC) [Entitic vol] 81.7 fL Normal 80.0-100.[address] [facility] Comment on above: Order Comment: Speci men Type: BLOOD SPECIMEN [facility]ing Facility[facility] Address: [address] [place] [address] Performed By: #### 1 4196-0, 14557-1 #### [facility] CLIA [id number] [address] Nucleated RBC (Bld) [#/Vol] 10*3/uL Normal <0.01 [facility] Comment on above: Order Comment: Speci men Type: BLOOD SPECIMEN [facility]ing [facility] Address: [address] [place] [address] Performed By: #### 1 4196-0, 96010-7 #### [facility] CLIA [id number] [address] [place] Platelet mean volume (Bld) [Entitic vol] 10.4 fL Normal 9.0-12.7 [facility] Comment on above: Order Comment: Speci men Type: BLOOD SPECIMEN [facility] Address: [address] [place] [address] Performed By: #### 1 4196-0, 79303-3 #### [facility] CLIA [id number] [address] STATES OF [facility] Platelets (Bld) [#/Vol] 126 10*3/uL Low 150-400 [facility] Comment on above: Order Comment: Speci men Type: BLOOD SPECIMEN Ordering [facility] Address: [address] [place] [address] Result Comment: No c lot detected. Performed By: #### 1 4196-0, 54754-5 #### [facility] CLIA [id number] [address] OF [facility] RBC (Bld) [#/Vol] 3.01 10*6/uL Low 3.90-5.20 [facility] Comment on above: Order Comment: Speci men Type: BLOOD SPECIMEN [facility] Address: [address] [place] [address] Performed By: #### 1 4196-0, 11291-5 #### [facility] CLIA [id number] [address] [place] [address] [place] WBC (Bld) [#/Vol] 5.06 10*3/uL Normal 3.70-11.00 [facility] Comment on above: Order Comment: Speci men Type: BLOOD SPECIMEN [facility]ing [facility] Address: [address] [place] [address] Performed By: #### 1 4196-0, 78768-4 #### [facility] CLIA [id number] [address] CONSULTon 03-20-2023 CONSULT HNO ID: [id number] Author: GENO HART MD Service: Infectious Disease Author Type: Physician Type: Consults Filed: 03/20/2023 14:57 Note Text: INITIAL CONSULT INFECTIOUS DISEASE SERVICE DATE: 03/20/2023 SERVICE TIME: 2:30 PM We were asked to evaluate Ms. Haydee Bustamante, a 77 year old yo [...] for recurrent lower extremity DVT, presented to [facility] 03/19/2023 for hemoptysis, going to the [facility] ED but then sent here due to [...] be COVID-positive. Interestingly a CAT scan at [facility] found pneumatosis intestinalis and intraperitoneal free air [...] -- 03/21/23 1000 remdesivir in NaCl 0.9% Vial-Mate/ADD-Peru 100 mg 275 mL 100 mg, INTRAVENOUS, EVERY 24 HOURS See Amada for full Linked Orders Report. 03/23/23 0959 03/20/23 1300 itraconazole 200 mg oral liquid (SPORANOX) 200 mg, ORAL, 3 TIMES DAILY 03/23/23 1259 03/19/231999 ciprofloxacin iv piggyback 400 mg in D5W 200 mL (CIPRO) 400 mg, INTRAVENOUS, EVERY 12 HOURS -- 03/19/23 1930 metroNIDAZOLE iv piggyback 500 mg in NaCl (iso-osmotic) 100 mL (FLAGYL) 500 mg, INTRAVENOUS, EVERY 8 HOURS -- Immuno (more content not included)... 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 INR on arrival to [place] was 9. She given Vitamin K and transferred here. 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 No sustained Rx with Amiodarone, Nitrofurantoin, cancer chemotherapy. Smoking h/o: 77-cwlq-fjpw former smoker, quit in 1989. Late was [...] rheumatoid factor (HCC) 03/07/2015 Dr. Hurley ([facility]) Unspecified hemorrhoids without mention of complication [...] SPINE FUSN,POST INTERBODY 2012 Dr. Armando at [facility]. Diskectomy and laminectomy PAST SURGICAL HISTORY OF 03/07/1999 removal facial lesion PAST SURGICAL HISTORY OF 08/17/2014 excision soft tissue mass left index finger TONSILLECTOMY PRIMARY/SECONDARY TRANSCATH RETRIEVAL,PERCUT 12/28/2006 medication ALL (more content not included)... Normal [facility] Comprehensive metabolic 2000 panelon 03-20-2023 Albumin [Mass/Vol] 2.6 g/dL Low 3.9-4.9 [facility] Comment on above: Order Comment: Speci men Type: BLOOD SPECIMEN [facility]ing Facility: [facility] Address: [address] [place] [address] Performed By: #### 3 3959-8, 49667-6 #### [facility] CLIA [id number] [address] [place] ALP [Catalytic activity/Vol] 207 U/L High 34-123 [facility] Comment on above: Order Comment: Speci men Type: BLOOD SPECIMEN Ordering Facility: [facility] Address: [address] [place] [address] Performed By: #### 3 3699-8, 09960-3 #### [facility] CLIA [id number] [address] [place] ALT With P-5'-P [Catalytic activity/Vol] 65 U/L High 7-38 [facility] Comment on above: Order Comment: Speci men Type: BLOOD SPECIMEN Ordering Facility: [facility] Address: [address] [place] [address] Performed By: #### 3 4979-8, 20567-1 #### [facility] CLIA [id number] [address] [place] Anion gap [Moles/Vol] 8 mmol/L Low 9-18 [facility] Comment on above: Order Comment: Speci men Type: BLOOD SPECIMEN Ordering Facility: [facility] Address: [address] [place] [address] Performed By: #### 3 3959-8, 40601-8 #### [facility] CLIA [id number] [address] [place] AST With P-5'-P [Catalytic activity/Vol] 55 U/L High 13-35 [facility] Comment on above: Order Comment: Speci men Type: BLOOD SPECIMEN Ordering Facility: [facility] Address: [address] [place] [address] Performed By: #### 3 3959-8, #### [facility] CLIA [id number] 1 [place] [address] [place] Bilirubin [Mass/Vol] 0.7 mg/dL Normal 0.2-1.3 [facility] Comment on above: Order Comment: Speci men Type: BLOOD SPECIMEN Ordering Facility: [facility] Address: [address] [place] [address] Performed By: #### 3 3959-8, #### [facility] CLIA [id number] 1 [place] [address] [place] Calcium [Mass/Vol] 8.3 mg/dL Low 8.5-10.2 [facility] Comment on above: Order Comment: Speci men Type: BLOOD SPECIMEN Ordering Facility: [facility] Address: [address] [place] [address] Performed By: #### 3 3959-8, #### [facility] CLIA [id number] 1 [place] [address] [place] Chloride [Moles/Vol] 95 mmol/L Low 97-105 [facility] Comment on above: Order Comment: Speci men Type: BLOOD SPECIMEN Ordering Facility: [facility] Address: [address] [place] [address] Performed By: #### 3 3959-8, #### [facility] CLIA [id number] 1 [place] [address] [place] CO2 [Moles/Vol] 25 mmol/L Normal 22-30 [facility] Comment on above: Order Comment: Speci men Type: BLOOD SPECIMEN Ordering Facility: [facility] Address: [address] [place] [address] Performed By: #### 3 3959-8, 10194-5 #### [facility] CLIA [id number] [address] [place] Creatinine [Mass/Vol] 0.86 mg/dL Normal 0.58-0.96 [facility] Comment on above: Order Comment: Speci men Type: BLOOD SPECIMEN Ordering Facility: [facility] Address: [address] [place] [address] Performed By: #### 3 3959-8, 78920-8 #### [facility] CLIA [id number] [address] OF [facility] Creatinine and Glomerular filtration rate.predicted panel (S/P/Bld) 71 mL/min/1.73m??? Normal >=60 [facility] Comment on above: Order Comment: Specbetina men Type: BLOOD SPECIMEN Ordering Facility: [facility] Address: [address] [place] [address] Result Comment: Meaghan mated Glomerular Filtration Rate [...] actual GFR. Performed By: #### 3 3959-8, 63934-0 #### [facility] CLIA [id number] [address] [place] Glucose [Mass/Vol] 84 mg/dL Normal 74-99 [facility] Comment on above: Order Comment: Speci men Type: BLOOD SPECIMEN Ordering Facility: [facility] Address: [address] [place] [address] Result Comment: The [place] [employer] Association (ADA) provides guidance for cutoff [...] Standards of Medical Care in Diabetes 2016, [place] [employer]. Diabetes Care. 2016.39(Suppl 1). Performed By: #### 3 3959-8, #### [facility] CLIA [id number] 1 [place] [address] [place] Potassium [Moles/Vol] 4.3 mmol/L Normal 3.7-5.1 [facility] Comment on above: Order Comment: Renay adkins Type: BLOOD SPECIMEN Ordering Facility[facility] Address: [address] [place] [address] Performed By: #### 3 3958-8, #### [facility] CLIA [id number] 1 [place] [address] [place] Protein [Mass/Vol] 4.7 g/dL Low 6.3-8.0 [facility] Comment on above: Order Comment: Renay adkins Type: BLOOD SPECIMEN Ordering Facility: [facility] Address: [address] [place] [address] Performed By: #### 3 3959-8, #### [facility] CLIA [id number] 1 [place] [address] [place] Sodium [Moles/Vol] 128 mmol/L Low 136-144 [facility] Comment on above: Order Comment: Renay adkins Type: BLOOD SPECIMEN Ordering Facility[facility] Address: [address] [place] [address] Performed By: #### 3 3959-8, 05736-8 #### [facility] CLIA [id number] 1 [place] [address] [place] Urea nitrogen [Mass/Vol] 20 mg/dL Normal 7- [facility] Comment on above: Order Comment: Speci men Type: BLOOD SPECIMEN Ordering Facility: [facility] Address: [facility] [place] [address] Performed By: #### 3 3959-8, 45738-3 #### [facility] CLIA [id number] [address] ED NOTEon 03-20-2023 ED NOTE HNO ID: [id number] Author: ELKE PELAEZ, PAULA Service: Emergency Medicine Author Type: Registered Nurse Type: ED Notes Filed: 03/20/2023 17:13 Note Text: Pt given food tray [facility] ED NOTE HNO ID: [id number] Author: ELKE PELAEZ RN Service: Emergency Medicine Author Type: Registered Nurse Type: ED Notes Filed: 03/20/2023 15:44 Note Text: Pt ambulating to bathroom with steady gait [facility] ED NOTE HNO ID: [id number] Author: AMERICA ASTORGA RN Service: Emergency Medicine Author Type: Registered Nurse Type: ED Notes Filed: 03/20/2023 12:24 Note Text: Pt given lunch tray at this time. Normal [facility] ED NOTE HNO ID: [id number] Author: BIBI GONZALEZ RN Service: Emergency Medicine Author Type: Registered Nurse Type: ED Notes Filed: 03/20/2023 06:27 Note Text: Surgery at bedside [facility] ED NOTE HNO ID: [id number] Author: BIBI GONZALEZ RN Service: Emergency Medicine Author Type: Registered Nurse Type: ED Notes Filed: 03/20/2023 06:23 Note Text: Patient ambulatory to restroom and back with steady gait. [facility] ED NOTE HNO ID: [id number] Author: BIBI GONZALEZ RN Service: Emergency Medicine Author Type: Registered Nurse Type: ED Notes Filed: 03/20/2023 02:11 Note Text: Patient ambulatory to restroom and back with steady gait. [facility] PT panel Coag (PPP)on 2023 INR Coag (PPP) [Relative time] 4.7 {INR} High 0.9-1.3 [facility] Comment on above: Order Comment: Renay adkins Type: BLOOD SPECIMENOrdering Facility: [facility] Address: [address] [place] [address] Result Comment: Halle min K Antagonist (VKA) Therapeutic Range: INR 2 to 3 (Target INR of 2.5) Note: For patients treated with VKA drugs, such as warfarin, the [place] [employer] 2012 Guideline recommends [...] Chest 2012, 141:7S-47S Mitzi RA, et al. [facility] 2017, 70: 252-289 Performed By: #### 3 4528-0 ####[facility] [id number] [place] [address] [place] PT Coag (PPP) [Time] 44.0 s High 9.7-13.0 [facility] Comment on above: Order Comment: Renay adkins Type: BLOOD SPECIMENOrdering Facility: [facility] Address: [address] [place] [address] Performed By: #### 3 4528-0 ####[facility] [id number] [address] [place] INR Coag (PPP) [Relative time] 5.7 {INR} High 0.9-1.3 [facility] Comment on above: Order Comment: Renay adkins Type: BLOOD SPECIMENOrdering Facility: [facility] Address: [address] [place] [address] Result Comment: Halle min K Antagonist (VKA) Therapeutic Range: INR 2 to 3 (Target INR of 2.5) Note: For patients treated with VKA drugs, such as warfarin, the [place] [employer] 2012 Guideline recommends [...] GH, et al. Chest 2012, 141:7S-47S Mitzi TOLEDO et al. [facility] 2017, 70: 252-289 Performed By: #### 3 4528-0 ####[facility] [id number] [place] [address] [place] PT Coag (PPP) [Time] 52.4 s High 9.7-13.0 [facility] Comment on above: Order Comment: Renay adkins Type: BLOOD SPECIMENOrdering Facility: [facility] Address: [address] [place] [address] Performed By: #### 3 4528-0 ####[facility] [id number] [address] OF [facility] Procalcitonin SerPl-mCncon 0 03-20-2023 Procalcitonin [Mass/Vol] 0.20 ng/mL High <0.09 [facility] Comment on above: Order Comment: Renay adkins Type: BLOOD SPECIMEN Order[facility] Address: [address] [place] [address] Result Comment: For a guided interpretation of test results, please visit the Change in Procalcitonin Calculator, [email or web address]. Performed By: #### 3 3959-8, 33271-8 #### [facility] CLIA [id number] [address] [place] Resp path 12b Pnl Spec GWEN+p robeon [...] Not detected MYCOPLASMA PNEUMONIAE: Not detected Normal [facility] Comment on above: Performed By: #### 6 0566-7 ####[facility] [id number] [address] Absolute lymphocyte countOrd ered By: Bob Elias on 03-19-2023 Lymphocytes Auto (Unsp spec) [#/Vol] 0.97 10*3/uL 0.83-4.51 [facility] Activated partial thrombopla stin time (aPTT) in platelet poor plasma by coagulation aOrdered By: Bob Elias on 03-19-2023 aPTT Coag (PPP) [Time] 109.6 s 24.1-36.2 [facility] Comment on above: CRITICAL VALUE VERIF IED. CALLED TO MYNOR MITCHELL (ER)03/19/23 1200 Chacho Bernal.RESULTS READ BACK BY SAME. Automated lymphocyte count a s percentage of total leukocytesOrdered By: Bob Elias on 03-19-2023 Lymphocytes/100 WBC Auto (Unsp spec) 15.1 % 19-41 [facility] Basic metabolic 2000 panelon 03-19-2023 Anion gap [Moles/Vol] 8 mmol/L Low 9-18 [facility] Comment on above: Order Comment: Speci men Type: BLOOD SPECIMENOrdering Facility: [facility] Address: [address] [place] [address] Performed By: #### 2 4321-2 ####[facility]IA [id number] [place] [address] [place] Calcium [Mass/Vol] 8.9 mg/dL Normal 8.5-10.2 [facility] Comment on above: Order Comment: Speci men Type: BLOOD SPECIMENOrdering Facility: [facility] Address: [address] [place] [address] Performed By: #### 2 4321-2 ####[facility] [id number] [place] [address] [place] Chloride [Moles/Vol] 95 mmol/L Low 97-105 [facility] Comment on above: Order Comment: Speci men Type: BLOOD SPECIMENOrdering Facility: [facility] Address: [address] [place] [address] Performed By: #### 2 4321-2 ####[facility]IA [id number] [place] [address] [place] CO2 [Moles/Vol] 25 mmol/L Normal 22-30 [facility] Comment on above: Order Comment: Speci men Type: BLOOD SPECIMENOrdering Facility: [facility] Address: [address] [place] [address] Performed By: #### 2 4321-2 ####[facility] [id number] [address] [place] Creatinine [Mass/Vol] 0.88 mg/dL Normal 0.58-0.96 [facility] Comment on above: Order Comment: Speci men Type: BLOOD SPECIMENOrdering Facility: [facility] Address: [address] [place] [address] Performed By: #### 2 4321-2 ####[facility]IA [id number] [address] [place] Creatinine and Glomerular filtration rate.predicted panel (S/P/Bld) 69 mL/min/1.73m??? Normal >=60 [facility] Comment on above: Order Comment: Renay adkins Type: BLOOD SPECIMENOrdering Facility: [facility] Address: [address] [place] [address] Result Comment: Meaghan mated Glomerular Filtration Rate [...] actual GFR. Performed By: #### 2 4321-2 ####[facility]ORYCLIA [id number] [place] [address] [place] Glucose [Mass/Vol] 87 mg/dL Normal 74-99 [facility] Comment on above: Order Comment: Renay adkins Type: BLOOD SPECIMENOrdering Facility: [facility] Address: [address] [place] [address] Result Comment: The [place] Diabetes [employer] (ADA) provides guidance for cutoff [...] Standards of Medical Care in Diabetes 2016, [place] [employer]. Diabetes Care. 2016.39(Suppl 1). Performed By: #### 2 4321-2 ####[facility]ORYCLIA [id number] [place] [address] [place] Potassium [Moles/Vol] 4.3 mmol/L Normal 3.7-5.1 [facility] Comment on above: Order Comment: Renay adkins Type: BLOOD SPECIMENOrdering Facility: [facility] Address: [address] [place] [id number] Performed By: #### 2 4321-2 ####[facility] [id number] [place] [id number] [place] Sodium [Moles/Vol] 128 mmol/L Low 136-144 [facility] Comment on above: Order Comment: Speci men Type: BLOOD SPECIMENOrdering Facility: [facility] Address: [address] [place] [address] Performed By: #### 2 4321-2 ####[facility]ORYCLIA [id number] [place] [id number] [place] Urea nitrogen [Mass/Vol] 27 mg/dL High 7-21 [facility] Comment on above: Order Comment: Speci men Type: BLOOD SPECIMENOrdering Facility: [facility] Address: [address] [place] [address] Performed By: #### 2 4321-2 ####[facility]ORYCLIA [id number] [place] [id number] [place] Basophil percentageOrdered B y: Bob Elias on 03-19-2023 Basophil percentage 9.0 g/dL 12.0-15.0 [facility] Basophil percentage 89 mg/dL 74-106 [facility] Basophil percentage 130 mmol/L 136-145 [facility] Basophil percentage 4.5 mmol/L 3.5-5.1 [facility] 100 mmol/L 98-107 [facility] Basophils (Bld) [#/Vol] 6.4 10*3/uL 4.4-11.0 [facility] Basophils (Bld) [#/Vol] 4.4 10*3/uL 2.0-7.7 [facility] Basophils/100 WBC (Bld) 1.1 % 0-1 [facility] Basophils/100 WBC (Bld) 68.8 % 47-70 [facility] Basophils/100 WBC (Bld) 10.9 % 0-10 [facility] Basophils/100 WBC (Bld) 2.5 % 0-5 [facility] Chloride [Moles/Vol] 100 mmol/L 98-[address] [facility] Eosinophils/100 WBC (Bld) 2.5 % 0-5 [facility] Glucose [Mass/Vol] 89 mg/dL 74-[address] [facility] Hemoglobin (Bld) [Mass/Vol] 9.0 g/dL 12.0-15.0 [facility] Monocytes/100 WBC (Bld) 10.9 % 0-10 [facility] Neutrophils (Bld) [#/Vol] 4.4 10*3/uL 2.0-7.7 [facility] Neutrophils/100 WBC (Bld) 68.8 % 47-70 [facility] Potassium [Moles/Vol] 4.5 mmol/L 3.5-5.1 [facility] Sodium [Moles/Vol] 130 mmol/L 136-[address] [facility] WBC (Bld) [#/Vol] 6.4 10*3/uL 4.4-11.[address] [facility] CBC panel Auto (Bld)on 03-19 Erythrocyte distribution width (RBC) [Ratio] 16.3 % High 11.5-15.0 [facility] Comment on above: Order Comment: Speci men Type: BLOOD SPECIMEN [facility] Address: [address] [place] [address] Performed By: #### 1 4196-0, 76691-1 #### [facility] CLIA [id number] [address] [place] [address] [place] Hematocrit (Bld) [Volume fraction] 29.2 % Low 36.0-46.0 [facility] Comment on above: Order Comment: Speci men Type: BLOOD SPECIMEN [facility] Address: [address] [place] [address] Performed By: #### 1 4196-0, 03657-6 #### [facility] CLIA [id number] [address] [place] [address] [place] Hemoglobin (Bld) [Mass/Vol] 9.6 g/dL Low 11.5-15.5 [facility] Comment on above: Order Comment: Speci men Type: BLOOD SPECIMEN [facility] Address: [address] [place] [address] Performed By: #### 1 4196-0, 59893-2 #### [facility] CLIA [id number] [address] MCH (RBC) [Entitic mass] 26.7 pg Normal 26.0-34.0 [facility] Comment on above: Order Comment: Speci men Type: BLOOD SPECIMEN [facility] Address: [address] [place] [address] Performed By: #### 1 4196-0, 44163-2 #### [facility] CLIA [id number] [address] [place] [address] MCHC (RBC) [Mass/Vol] 32.9 g/dL Normal 30.5-36.0 [facility] Comment on above: Order Comment: Speci men Type: BLOOD SPECIMEN [facility] Address: [address] [place] [address] Performed By: #### 1 4196-0, 97592-9 #### [facility] CLIA [id number] [address] [place] [address] MCV (RBC) [Entitic vol] 81.1 fL Normal 80.0-100.[address] [facility] Comment on above: Order Comment: Speci men Type: BLOOD SPECIMEN [facility] Address: [address] [place] [address] Performed By: #### 1 4196-0, 45285-6 #### [facility] CLIA [id number] [address] [place] [address] Nucleated RBC (Bld) [#/Vol] 10*3/uL Normal <0.01 [facility] Comment on above: Order Comment: Speci men Type: BLOOD SPECIMEN [facility] Address: [address] [place] [address] Performed By: #### 1 4196-0, 39885-2 #### [facility] CLIA [id number] [address] Platelet mean volume (Bld) [Entitic vol] 9.6 fL Normal 9.0-12.7 [facility] Comment on above: Order Comment: Speci men Type: BLOOD SPECIMEN [facility] Address: [address] [place] [address] Performed By: #### 1 4196-0, 32950-4 #### [facility] CLIA [id number] [address] OF [facility] Platelets (Bld) [#/Vol] 144 10*3/uL Low 150-400 [facility] Comment on above: Order Comment: Speci men Type: BLOOD SPECIMEN [facility] Address: [address] [place] [address] Performed By: #### 1 4196-0, 57899-8 #### [facility] CLIA [id number] [address] [place] [address] RBC (Bld) [#/Vol] 3.60 10*6/uL Low 3.90-5.20 [facility] Comment on above: Order Comment: Speci men Type: BLOOD SPECIMEN [facility] Address: [address] [place] [address] Performed By: #### 1 4196-0, 36699-7 #### [facility] CLIA [id number] [address] WBC (Bld) [#/Vol] 7.48 10*3/uL Normal 3.70-11.00 [facility] Comment on above: Order Comment: Speci men Type: BLOOD SPECIMEN [facility] Address: [address] [place] [address] Performed By: #### 1 4196-0, 92762-3 #### [facility] CLIA [id number] [address] Determination of erythrocyte mean corpuscular volume (MCV)Ordered By: Bob Elias on 01-29-2024 MCV (RBC) [Entitic vol] 81.5 fL 81-99 [facility] ED NOTEon 03-19-2023 ED NOTE HNO ID: [id number] Author: BIBI GONZALEZ, PAULA Service: Emergency Medicine Author Type: Registered Nurse Type: ED Notes Filed: 03/19/2023 20:07 Note Text: CT notified pt is ready Normal [facility] ED NOTE HNO ID: [id number] Author: APRIL SOARES, PAULA Service: ? Author Type: Registered Nurse Type: ED Notes Filed: 03/19/2023 18:06 Note Text: Bed: 07-ED Expected date: 03/19/23 Expected time: Means of arrival: [facility] Comments: MARTÍN MOMIN: [place] TRANSFER Normal [facility] ED PROV NOTEon 03-19-2023 ED PROV NOTE HNO ID: [id number] Author: CHACHO ERNST DO Service: Emergency Medicine [...] who presents for pneumoperitoneum. Patient presents from [facility] where she initially presented after having worsening cough with hemoptysis. 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 She states that yesterday morning she was woken up from her sleep with persistent coughing and an episode of hemoptysis. She states that she has intermittently had blood tinge to her sputum but states that this was much more than normal. She is on Coumadin for history of prior DVT and states that she has been compliant with this. While she was at [place], she was found to have an INR [...] Diverticulosis DVT, recurrent, lower extremity, acute ([facility]LY [facility]) 12/10/2014 Esophageal reflux Hiatal hernia 02/25/2018 Hypertension Lung nodule Personal history of unspecified urinary disorder Rheumatoid arthritis involving multiple sites with positive rheumatoid factor ([facility]) 03/07/2015 Dr. Hurley ([facility]) Unspecified hemorrhoids without mention of complication [...] of her pneumoperitoneum. CHACHO ERNST 03/19/232058 Normal [facility] ED PROV NOTE HNO ID: [id number] Author: CHACHO ERNST DO Service: Emergency Medicine [...] presents with: Functional Transfers: Pt transferred from [facility] ED for free air and perf bowel. Pt states she initially went to the hospital for ongoing sore throat and one episode of hemoptysis early this morning. Pt denies chest or abd pain. Pt tested positive for Covid at [facility]. HPI Patient is a 77-year-old female with past medical history of DVT on Coumadin, COPD, recent diagnosis of histoplasmosis and Blastomyces, COVID-positive today presenting to the emergency department from was from [facility] due to possible bowel perf on imaging. Pt denies any pain currently. Pt reports that she went to [facility] this morning after spitting up a small amount of bright red blood from a cough which has been ongoing since January. Pt reports having a sore throat at this time but denies any lightheadedness, CP, SOB, abdominal pain, and denies any nausea or vomiting. Per EMS, pt had an INR of 9.4 at [facility]. Patient reports that she is on Coumadin [...] rheumatoid factor (HCC) 03/07/2015 Dr. Hurley ([facility]) Unspecified hemorrhoids without mention of complication [...] SPINE FUSN,POST INTERBODY 2011 Dr. Armando at [facility]. Diskectomy and laminectomy PAST SURGICAL HISTORY [...] is no (more content not included)... Normal [facility] Erythrocyte distribution wid th ratioOrdered By: Bob Elias on 03-19-2023 Erythrocyte distribution width (RBC) [Ratio] 16.3 % 11.6-14.6 [facility] Erythrocyte distribution wid th standard deviationOrdered By: Bob Elias on 03-19-2023 Erythrocyte distribution width (RBC) [Entitic vol] 48.3 fL 35.1-43.9 [facility] HISTORY PHYSICALon HISTORY PHYSICAL HNO ID: [id number] Author: PAMELA HALL MD Service: General Surgery [...] in the colon. INR on arrival to [facility] was 9. She given Vitamin K and transferred here. Patient denies any abdominal pain, nausea, vomiting, fevers, or chills. Patient reports normal bowel movements. Slightly tachycardic on arrival. HDS. Repeat CBC, BMP, PT/INR pending. CTAP read in [facility], currently waiting on image transfer from [facility]. Noprevious abdominal surgeries. Last colonoscopy in 2019 with no abnormalities noted. FUNCTIONAL STATUS: Independent PAST MEDICAL HISTORY Diagnosis Date Anemia Bone marrow involvement with histoplasmosis Bronchiectasis (HCC) COPD (chronic obstructive pulmonary disease) (HCC) Disseminated histoplasmosis Colitis, immunosuppression, 01/2018. Diverticulosis of colon (without mention of hemorrhage) Diverticulosis DVT, recurrent, lower extremity, acute ([facility]) 12/10/2014 Esophageal reflux Hiatal hernia 02/25/2018 Hypertension Lung nodule Personal history of unspecified urinary disorder Rheumatoid arthritis involving multiple sites with positive rheumatoid factor ([facility]) 03/07/2015 Dr. Hurley ([facility]) Unspecified hemorrhoids without mention of complication [...] SPINE FUSN,POST INTERBODY 2011 Dr. Armando at [facility]. Diskectomy and laminectomy PAST SURGICAL HISTORY [...] in the colon. INR on arrival to [facility] was 9. She given Vitamin K and transferred here. Pneumatosis intestinalis (more content not included)... Normal [facility] Hematocrit Auto (Bld) [Volum e fraction]Ordered By: Bob Elias on 03-19-2023 Hematocrit (Bld) [Volume fraction] 27.7 % 37-47 [facility] Immature granulocytes/100 WB C Auto (Bld)Ordered By: Bob Elias on 03-19-2023 Immature granulocytes/100 WBC (Bld) 1.600 % 0.0-0.9 [facility] Comment on above: IG% - Immature Granu locytes (promyelocytes, myelocytes and metamyelocytes) > 1% indicates that a LEFT SHIFT is Present. International normalized rat io (INR) calculationOrdered By: Bob Elias on 03-19-2023 INR Coag (PPP) [Relative time] 9.4 {INR} [facility] Comment on above: CRITICAL VALUE VERIF IED. CALLED TO MYNOR MITCHELL (ER)03/19/23 1200 Chacho Bernal.RESULTS READ BACK BY SAME. Laboratory - Chemistry and C hemistry - challengeOrdered By: Bob Elias on 03-19-2023 CO2 [Moles/Vol] 26.0 mmol/L 21.0-32.0 [facility] Urea nitrogen/Creatinine [Mass ratio] 35.7 mg/mg 10-20 [facility] Laboratory - CoagulationOrde red By: Bob Elias on 03-19-2023 PT Coag (PPP) [Time] 78.0 s 11.7-14.9 [facility] Laboratory - Hematology and Cell countsOrdered By: Bob Elias on 03-19-2023 MCH (RBC) [Entitic mass] 26.5 pg 27.0-32.0 [facility] MCHC (RBC) [Mass/Vol] 32.5 g/dL 32-36 [facility] Nucleated RBC/100 WBC (Bld) [Ratio] 0 % 0-5 [facility] Platelets (Bld) [#/Vol] 145 10*3/uL 150-450 [facility] Laboratory - Microbiology an d Antimicrobial susceptibilityOrdered By: Bob Elias on 03-19-2023 SARS-CoV-2 (COVID-19) RNA GWEN+probe Ql (Unsp spec) SARS-CoV-2 (COVID 19 PCR) [facility] SARS-CoV-2 (COVID-19) RNA GWEN+probe Ql (Unsp spec) SARS-CoV-2 (COVID 19 PCR) [facility] Lactate (Bld) [Moles/Vol]on 03-19-2023 Lactate [Moles/Vol] 1.2 mmol/L Normal 0.5-2.2 [facility] Comment on above: Order Comment: Speci men Type: BLOOD SPECIMEN Ordering Facility: [facility] Address: [address] [place] [address] [place] [address] Performed By: #### 1 4196-0, 37263-0 #### [facility] CLIA [id number] [address] [place] No Panel InformationOrdered By: Bob Elias on 03-19-2023 Estimated Creatinine Clearance Calc 44.81 ml/min [facility] Estimated GFR (MDRD) Amer 73 mL/min >60 [facility] Comment on above: GFR Calc Estimated GFR (MDRD) Non-Af Amer 61 mL/min >60 [facility] Comment on above: Non- GFR Calc 26.5 pg 27.0-32.0 [facility] 32.5 g/dL 32-36 [facility] 145 K/mm3 150-450 [facility] 0 % 0-5 [facility] 78.0 SECONDS 11.7-14.9 [facility] 61 mL/min >60 [facility] 73 mL/min >60 [facility] 44.81 ml/min [facility] 35.7 RATIO 10-20 [facility] 26.0 mmol/L 21.0-32.0 [facility] SARS-CoV-2 (COVID 19 PCR) [facility] PT panel Coag (PPP)on 2023 INR Coag (PPP) [Relative time] {INR} High 0.9-1.3 [facility] Comment on above: Order Comment: Speci men Type: BLOOD SPECIMEN Ordering Facility: [facility] Address: [address] [place] [address] Result Comment: Halle min K Antagonist (VKA) Therapeutic Range: INR 2 to 3 (Target INR of 2.5) Note: For patients treated with VKA drugs, such as warfarin, the [employer] 2012 Guideline recommends [...] Chest 2012, 141:7S-47S Mitzi RA, et al. [facility] 2017, 70: 252-289 Performed By: #### 1 4196-0, 07364-5 #### [facility] CLIA [id number] [address] [place] PT Coag (PPP) [Time] 76.9 s High 9.7-13.0 [facility] Comment on above: Order Comment: Speci men Type: BLOOD SPECIMEN Ordering Facility: [facility] Address: [address] [place], [place] [address] [address] Performed By: #### 1 4196-0, 98048-7 #### [facility] CLIA [id number] [address] [place] [id number] [place] Platelet mean volume Nicholas-Ec ker (Bld) [Entitic vol]Ordered By: Bob Elias on 03-19-2023 Platelet mean volume (Bld) [Entitic vol] 10.3 fL 6.2-12.0 [facility] RBC Auto (Bld) [#/Vol]Ordere d By: Bob Elias on 03-19-2023 RBC (Bld) [#/Vol] 3.40 10*6/uL 4.2-5.4 [facility] Serum or plasma calcium monica urement (mass/volume)Ordered By: Bob Elias on 03-19-2023 Calcium [Mass/Vol] 9.1 mg/dL 8.5-10.[address] [facility] Serum or plasma creatinine m easurement (mass/volume)Ordered By: Bob Elias on 03-19-2023 Creatinine [Mass/Vol] 0.95 mg/dL 0.55-1.02 [facility] Comment on above: The validity of the calculated GFR & GFRAA in patients over 70 years has not been determined. Clinical correlation is essential. Serum or plasma urea nitroge n measurement (mass/volume)Ordered By: Bob Elias on 03-19-2023 Urea nitrogen [Mass/Vol] 34 mg/dL 7-18 [facility] Thin prep Papanicolaou smear with manual screeningOrdered By: Bob Elias on 03-19-2023 Thin prep Papanicolaou smear with manual screening 4 - [facility] COVID & INFLUENZA A/B & RSV NAAT, ROUTINEon 02-07-2023 FLUAV RNA GWEN+probe Ql (Unsp spec) Not detected Not Detected [facility] FLUBV RNA GWEN+probe Ql (Unsp spec) Not detected Not Detected [facility] RSV A RNA GWEN+probe Ql (Unsp spec) Not detected Not Detected [facility] SARS-CoV-2 (COVID-19) RNA GWEN+probe Ql (Resp) Not detected See comment [facility] XR CHEST 2V FRONTAL/LATon [facility] XR Chest PA and Lateralon IMPRESSION: Mild prominence markings RIGHT lung base may be due to known RIGHT middle lobe bronchiectasis. Small infiltrate cannot be excluded. Inspector Precision: ROBERTS CHAPEL Transcribe Date/Time: Feb 07 2023 11:42A Dictated by : JASMYN MÉNDEZ MD This examination was interpreted and the report reviewed and electronically signed by: JASMYN MÉNDEZ MD on Feb 07 2023 11:46AM [facility] DIVISION OF RADIOLOGY * * *Final [...] soft tissues: Unremarkable. DIVISION OF RADIOLOGY Provider, [facility] Nina [facility] - 02/07/2023 * * *Final Report* * [...] lobe bronchiectasis. Small infiltrate cannot be excluded. Inspector Precision: KRYSTAL Transcribe Date/Time: Feb 07 2023 11:42A Dictated by : JASMYN MÉNDEZ MD This examination was interpreted and the report reviewed and electronically signed by: JASMYN MÉNDEZ MD on Feb 07 2023 11:46AM EST [facility] Radiology Study observation (narrative) [facility] XR Chest PA and LateralOrder ed By: Ccf Provider on 02-07-2023 [facility] INR (POC)on 01-04-2023 INR Coag (PPP) [Relative time] 2.6 {INR} High 0.8 - 1.2 [facility] Internal Quality Check Acceptable Cl [facility] SABINO SCREENING W TOMOon 11-17 [facility] ECG COMPLETEon 08-30-2022 Atrial Rate 75 BPM [facility] Calculated P [place] 63 degrees [facility] Calculated R [place] 46 degrees [facility] Calculated T [place] 58 degrees [facility] P-R Interval 156 ms [facility] QRS Duration 62 ms [facility] QT Interval 358 ms [facility] QTC Calculation (Bazett) 399 ms [facility] Ventricular Rate 75 BPM [facility] CT CHEST WO IVCONon 07-21-19 [facility] XR Pelvis and Hip - left AP and Lateral frogon 12-31-2021 IMPRESSION: No acute pathology. 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 Inspector Precision: [facility] Transcribe Date/Time: Dec 31 2021 11:55A Dictated [...] dislocations are seen. DIVISION OF RADIOLOGY Provider, [facility] - 12/31/2021 * * *Final Report* * [...] acute pathology. 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 Inspector Precision: ROBERTS CHAPEL Transcribe Date/Time: Dec 31 2021 11:55A Dictated by : BANDAR BELL DO This examination was interpreted and the report reviewed and electronically signed by: BANDAR BELL DO on Dec 31 2021 11:58AM EST [facility] Radiology Study observation (narrative) [facility] XR Pelvis and Hip - left AP and Lateral frogOrdered By: Ccf Provider on 12-31-2021 [facility] No Panel Informationon 10-18 [facility] SABINO DIAGNOSTIC LTon 10-13-19 [facility] US BREAST LTD LTon [facility] SABINO SCREENINGon 09-05-2021 [facility] INR in Blood by Coagulation assayon 07-07-2021 INR Coag (Bld) [Relative time] 1.7 {INR} [facility] Work Phone: Laboratory - Coagulationon 0 - PT Coag (PPP) [Time] 19.5 s 11.7-14.9 [facility] Work Phone: Histoplasma Ag, Urineon 02-19 Histoplasma Ag,Urine Not Detected Normal [facility] Comment on above: Performed By: #### H ISUO #### The performing lab is in the report. Interpretation Not Detected Normal Not Detected [facility] Comment on above: Result Comment: INTE [...] histoplasmosis. Test developed and characteristics determined by [facility]. See Compliance Statement B: [email or web address]/ Performed by [facility], [address] [place] [id number] [email or web address], Christopher Yen MD - Lab. Director Performed By: #### H ISUO #### The performing lab is in the report. Vital Signs Date Time Vital Sign Value Performing Clinician Facility 08-27-2024 16:27-0400 Body temperature 97.8 [degF] Dr. Claudine Durán MD Work Phone: [facility] 08-27-2024 16:27-0400 Diastolic blood pressure 53 mm[Hg] Dr. Claudine Durán MD Work Phone: [facility] 08-27-2024 16:27-0400 Heart rate 89 /min Dr. Claudine Durán MD Work Phone: 1(685)432-543624 [place] [address] 08-27-2024 16:27-0400 Respiratory rate 18 /min Dr. Claudine Durán MD Work Phone: 3(710)128-067124 [place] [address] 08-27-2024 16:27-0400 SaO2% (BldA) [Mass fraction] 97 % Dr. Claudine Durán MD Work Phone: 4(379)370-166524 [place] [address] 08-27-2024 16:27-0400 Systolic blood pressure 127 mm[Hg] Dr. Claudine Durán MD Work Phone: 6(206)306-901424 [place] [address] 08-27-2024 05:47-0400 Body mass index (BMI) [Ratio] 24 kg/m2 Dr. Claudine Durán MD Work Phone: 6(397)244-773224 [place] [address] 08-27-2024 05:47-0400 Body weight 61.[address] Claudine Durán MD Work Phone: 5(698)521-334524 [place] [address] 08-23-2024 11:59-0400 Body temperature 98.2 [degF] Dr. Claudine Durán MD Work Phone: 5(280)039-265924 [place] [address] 08-23-2024 11:59-0400 Diastolic blood pressure 82 mm[Hg] Dr. Clauidne Durán MD Work Phone: 0(309)913-312124 [place] [address] 08-23-2024 11:59-0400 Heart rate 80 /min Dr. Claudine Durán MD Work Phone: 2(705)911-782024 [place] [address] 08-23-2024 11:59-0400 Respiratory rate 16 /min Dr. Claudine Durán MD Work Phone: 7(997)264-150924 [place] [address] 08-23-2024 11:59-0400 SaO2% (BldA) [Mass fraction] 100 % Dr. Claudine Durán MD Work Phone: 2(712)096-899024 [place] [address] 08-23-2024 11:59-0400 Systolic blood pressure 148 mm[Hg] Dr. Claudine Durán MD Work Phone: [facility] 08-23-2024 11:43-0400 Body height 160.[address] Claudine Durán MD Work Phone: [facility] 08-23-2024 11:43-0400 Body mass index (BMI) [Ratio] 22.8 kg/m2 Dr. Claudine Durán MD Work Phone: [facility] 08-23-2024 11:43-0400 Body weight 58.[address] Claudine Durán MD Work Phone: [facility] 08-21-2024 11:14-0400 Body weight 59.[address] Claudine Durán MD Work Phone: [facility] 07-24-2024 10:25-0400 Body height 160.[address] Claudine Durán MD Work Phone: [facility] 07-24-2024 10:25-0400 Body weight 60.[address] Claudine Durán MD Work Phone: [facility] 07-22-2024 14:20-0400 Body height 157.5 cm Brissa Chester APRN.SUSTAINABILITY CONSULTANT Work Phone: [facility] 07-22-2024 14:20-0400 Body mass index (BMI) [Ratio] 23.67 kg/m2 Brissa Chester APRN.SUSTAINABILITY CONSULTANT Work Phone: [facility] 07-22-2024 14:20-0400 Body weight 58.7 kg Brissa Chester APRN.SUSTAINABILITY CONSULTANT Work Phone: [facility] 07-22-2024 14:20-0400 Diastolic blood pressure 65 mm[Hg] Brissa Chester APRN.SUSTAINABILITY CONSULTANT Work Phone: [facility] 07-22-2024 14:20-0400 Heart rate 75 /min Brissa Chester APRN.SUSTAINABILITY CONSULTANT Work Phone: [facility] 07-22-2024 14:20-0400 Respiratory rate 18 /min Brissa Chester APRN.SUSTAINABILITY CONSULTANT Work Phone: [facility] 07-22-2024 14:20-0400 SaO2% (BldA) [Mass fraction] 98 % Brissa Chester LEATHER [employer]T MAKER.SUSTAINABILITY CONSULTANT Work Phone: [facility] 07-22-2024 14:20-0400 Systolic blood pressure 140 mm[Hg] Brissa Chester LEATHER [employer] MAKER.SUSTAINABILITY CONSULTANT Work Phone: [facility] 06-27-2024 08:19-0400 Body height 160.[address] Claudine Durán MD Work Phone: [facility] 06-27-2024 08:19-0400 Body weight 58.[address] Claudine Durán MD Work Phone: [facility] 06-20-2024 10:09-0400 Body mass index (BMI) [Ratio] 22.8 kg/m2 Dr. Claudine Durán MD Work Phone: [facility] 06-20-2024 10:09-0400 Body weight 58.[address] Claudine Durán MD Work Phone: [facility] 06-20-2024 10:09-0400 Diastolic blood pressure 74 mm[Hg] Dr. Claudine Durán MD Work Phone: [facility] 06-20-2024 10:09-0400 Heart rate 85 /min Dr. Claudine Durán MD Work Phone: [facility] 06-20-2024 10:09-0400 Respiratory rate 18 /min Dr. Claudine Durán MD Work Phone: [facility] 06-20-2024 10:09-0400 SaO2% (BldA) [Mass fraction] 98 % Dr. Claudine Durán MD Work Phone: [facility] 06-20-2024 10:09-0400 Systolic blood pressure 125 mm[Hg] Dr. Claudine Durán MD Work Phone: [facility] 05-28-2024 08:23-0400 Body mass index (BMI) [Ratio] 21.9 kg/m2 Dr. Claudine Durán MD Work Phone: 9(415)375-334547 [place] [address] 05-28-2024 08:20-0400 Body height 160.[address] Claudine Durán MD Work Phone: 5(335)717-051024 [place] [address] 05-28-2024 08:20-0400 Body weight 56.[address] Claudine Durán MD Work Phone: 7(990)561-759824 [place] [address] 05-28-2024 08:10-0400 Diastolic blood pressure 54 mm[Hg] Dr. Claudine Durán MD Work Phone: 3(071)694-629024 [place] [address] 05-28-2024 08:10-0400 Heart rate 84 /min Dr. Claudine Durán MD Work Phone: 8(672)942-479524 [place] [address] 05-28-2024 08:10-0400 SaO2% (BldA) [Mass fraction] 98 % Dr. Claudine Durán MD Work Phone: 0(296)545-059847 [place] [address] 05-28-2024 08:10-0400 Systolic blood pressure 100 mm[Hg] Dr. Claudine Durán MD Work Phone: [facility] 05-20-2024 12:53-0400 Body height 159.5 cm Jimbo Swanson LEATHER [employer] MAKER.SALES INCENTIVE ANALYST Work Phone: [facility] 05-20-2024 12:53-0400 Body mass index (BMI) [Ratio] 23.23 kg/m2 Jimbo Swanson LEATHER [employer] MAKER.SALES INCENTIVE ANALYST Work Phone: [facility] 05-20-2024 12:53-0400 Body weight 59.1 kg Jimbo Swanson LEATHER [employer] MAKER.SALES INCENTIVE ANALYST Work Phone: [facility] 05-20-2024 12:53-0400 Diastolic blood pressure 65 mm[Hg] Jimbo Swanson LEATHER [employer] MAKER.SALES INCENTIVE ANALYST Work Phone: [facility] 05-20-2024 12:53-0400 Heart rate 92 /min Jimbo Swanson LEATHER [employer] MAKER.SALES INCENTIVE ANALYST Work Phone: [facility] 05-20-2024 12:53-0400 Respiratory rate 16 /min Jimbo Swanson LEATHER [employer] MAKER.SALES INCENTIVE ANALYST Work Phone: [facility] 05-20-2024 12:53-0400 Systolic blood pressure 113 mm[Hg] Jimbo Swanson LEATHER [employer] MAKER.SALES INCENTIVE ANALYST Work Phone: [facility] 05-05-2024 08:34-0400 Diastolic blood pressure 71 mm[Hg] Adalid Maret LEATH[employer] MAKER.SUSTAINABILITY CONSULTANT Work Phone: [facility] 05-05-2024 08:34-0400 Heart rate 82 /min Adalid Maret LEATH[employer] MAKER.SUSTAINABILITY CONSULTANT Work Phone: [facility] 05-05-2024 08:34-0400 Systolic blood pressure 139 mm[Hg] Adalid Maret [employer]ATHER [employer] MAKER.SUSTAINABILITY CONSULTANT Work Phone: [facility] 04-30-2024 13:04-0400 Body height 160 cm [facility] 04-30-2024 13:04-0400 Body mass index (BMI) [Ratio] 23.21 kg/m2 [facility] 04-30-2024 13:04-0400 Body weight 59.42 kg [facility] 04-30-2024 13:04-0400 Diastolic blood pressure 63 mm[Hg] [facility] 04-30-2024 13:04-0400 Heart rate 88 /min [facility] 04-30-2024 13:04-0400 Respiratory rate 16 /[facility] 04-30-2024 13:04-0400 Systolic blood pressure 115 mm[Hg] [facility] 04-21-2024 10:44-0500 Body height 160 cm Geno Hart MD Work Phone: [facility] 04-21-2024 10:44-0500 Body mass index (BMI) [Ratio] 23.82 kg/m2 Geno Hart MD Work Phone: [facility] 04-21-2024 10:44-0500 Body temperature 97.9 [degF] Geno Hart MD Work Phone: [facility] 04-21-2024 10:44-0500 Body weight 61 kg Geno Hart MD Work Phone: [facility] 04-21-2024 10:44-0500 Diastolic blood pressure 84 mm[Hg] Geno Hart MD Work Phone: [facility] 04-21-2024 10:44-0500 Heart rate 103 /min Geno Hart MD Work Phone: [facility] 04-21-2024 10:44-0500 Respiratory rate 18 /min Geno Hart MD Work Phone: [facility] 04-21-2024 10:44-0500 SaO2% (BldA) [Mass fraction] 97 % Geno Hart MD Work Phone: [facility] 04-21-2024 10:44-0500 Systolic blood pressure 146 mm[Hg] Geno Hart MD Work Phone: [facility] 03-21-2024 09:28-0500 Body height 160 cm Juvencio Saeed MD Work Phone: [facility] 03-21-2024 09:28-0500 Body mass index (BMI) [Ratio] 23.03 kg/m2 Juvencio Saeed MD Work Phone: [facility] 03-21-2024 09:28-0500 Body weight 58.97 kg Juvencio Saeed MD Work Phone: [facility] 03-21-2024 09:28-0500 Diastolic blood pressure 77 mm[Hg] Juvencio Saeed MD Work Phone: [facility] 03-21-2024 09:28-0500 Heart rate 96 /min Juvencio Saeed MD Work Phone: [facility] 03-21-2024 09:28-0500 Respiratory rate 18 /min Juvencio Saeed MD Work Phone: [facility] 03-21-2024 09:28-0500 SaO2% (BldA) [Mass fraction] 96 % Juvencio Saeed MD Work Phone: [facility] Comment on above: RA 03-21-2024 09:28-0500 Systolic blood pressure 141 mm[Hg] Juvencio Saeed MD Work Phone: [facility] 02-29-2024 16:45-0500 Body mass index (BMI) [Ratio] 22.92 kg/m2 Claudine Durán MD Work Phone: [facility] 02-29-2024 16:45-0500 Body temperature 98.8 [degF] Claudine Durán MD Work Phone: [facility] 02-29-2024 16:45-0500 Body weight 58.7 kg Claudine Durán MD Work Phone: [facility] 02-29-2024 16:45-0500 Diastolic blood pressure 86 mm[Hg] Claudine Durán MD Work Phone: [facility] 02-29-2024 16:45-0500 Heart rate 85 /min Claudine Durán MD Work Phone: [facility] 02-29-2024 16:45-0500 Respiratory rate 16 /min Claudine Durán MD Work Phone: [facility] 02-29-2024 16:45-0500 SaO2% (BldA) [Mass fraction] 97 % Claudine Durán MD Work Phone: [facility] 02-29-2024 16:45-0500 Systolic blood pressure 138 mm[Hg] Claudine Durán MD Work Phone: [facility] 01-02-2024 09:09-0500 Body height 160 cm Lili Roche MD Work Phone: [facility] 01-02-2024 09:09-0500 Body mass index (BMI) [Ratio] 21.97 kg/m2 Lili Roche MD Work Phone: [facility] 01-02-2024 09:09-0500 Body weight 56.25 kg Lili Roche MD Work Phone: [facility] 01-02-2024 09:09-0500 Diastolic blood pressure 57 mm[Hg] Lili Roche MD Work Phone: [facility] 01-02-2024 09:09-0500 Heart rate 81 /min Lili Roche MD Work Phone: [facility] 01-02-2024 09:09-0500 SaO2% (BldA) [Mass fraction] 97 % Lili Roche MD Work Phone: [facility] 01-02-2024 09:09-0500 Systolic blood pressure 124 mm[Hg] Lili Roche MD Work Phone: [facility] 12-18-2023 11:02-0400 Body height 160 cm Geno Hart MD Work Phone: [facility] 12-18-2023 11:02-0400 Body mass index (BMI) [Ratio] 22.3 kg/m2 Geno Hart MD Work Phone: [facility] 12-18-2023 11:02-0400 Body temperature 98.71 [degF] Geno Hart MD Work Phone: [facility] 12-18-2023 11:02-0400 Body weight 57.11 kg Geno Hart MD Work Phone: [facility] 12-18-2023 11:02-0400 Diastolic blood pressure 75 mm[Hg] Geno Hart MD Work Phone: [facility] 12-18-2023 11:02-0400 Heart rate 84 /min Geno Hart MD Work Phone: [facility] 12-18-2023 11:02-0400 Respiratory rate 16 /min Geno Hart MD Work Phone: [facility] 12-18-2023 11:02-0400 SaO2% (BldA) [Mass fraction] 98 % Geno Hart MD Work Phone: [facility] 12-18-2023 11:02-0400 Systolic blood pressure 146 mm[Hg] Geno Hart MD Work Phone: [facility] 10-18-2023 10:03-0400 Body height 160 cm Bibi Alegria [employer].SUSTAINABILITY CONSULTANT Work Phone: [facility] 10-18-2023 10:03-0400 Body mass index (BMI) [Ratio] 20.62 kg/m2 Bibi Alegria [employer].SUSTAINABILITY CONSULTANT Work Phone: [facility] 10-18-2023 10:03-0400 Body weight 52.8 kg Bibi Alegria [employer].SUSTAINABILITY CONSULTANT Work Phone: [facility] 10-18-2023 10:03-0400 Diastolic blood pressure 60 mm[Hg] Bibi Alegria [employer].SUSTAINABILITY CONSULTANT Work Phone: [facility] 10-18-2023 10:03-0400 Heart rate 82 /min Bibi Alegria [employer].SUSTAINABILITY CONSULTANT Work Phone: [facility] 10-18-2023 10:03-0400 SaO2% (BldA) [Mass fraction] 99 % Bibi Alegria [employer].SUSTAINABILITY CONSULTANT Work Phone: [facility] 10-18-2023 10:03-0400 Systolic blood pressure 120 mm[Hg] Bibi Alegria [employer].SUSTAINABILITY CONSULTANT Work Phone: [facility] 10-11-2023 13:05-0400 Body mass index (BMI) [Ratio] 20.54 kg/m2 Jimbo Swanson [employer].SALES INCENTIVE ANALYST Work Phone: [facility] 10-11-2023 13:05-0400 Body weight 52.6 kg Jimbobetina Sans [employer].SALES INCENTIVE ANALYST Work Phone: [facility] 10-11-2023 13:05-0400 Diastolic blood pressure 62 mm[Hg] Jimbo Swanson [employer].SALES INCENTIVE ANALYST Work Phone: [facility] 10-11-2023 13:05-0400 Heart rate 68 /min Jimbo Swanson [employer].SALES INCENTIVE ANALYST Work Phone: [facility] 10-11-2023 13:05-0400 Respiratory rate 16 /min Jimbo Swanson [employer].SALES INCENTIVE ANALYST Work Phone: [facility] 10-11-2023 13:05-0400 Systolic blood pressure 107 mm[Hg] Jimbo Swanson APRN.SALES INCENTIVE ANALYST Work Phone: [facility] 08-28-2023 08:48-0400 Body height 160 cm Geno Hart MD Work Phone: [facility] 08-28-2023 08:48-0400 Body mass index (BMI) [Ratio] 23.45 kg/m2 Geno Hart MD Work Phone: [facility] 08-28-2023 08:48-0400 Body temperature 98.29 [degF] Geno Hart MD Work Phone: [facility] 08-28-2023 08:48-0400 Body weight 60.06 kg Geno Hart MD Work Phone: [facility] 08-28-2023 08:48-0400 Diastolic blood pressure 69 mm[Hg] Geno Hart MD Work Phone: [facility] 08-28-2023 08:48-0400 Heart rate 79 /min Geno Hart MD Work Phone: [facility] 08-28-2023 08:48-0400 Respiratory rate 18 /min Geno Hart MD Work Phone: [facility] 08-28-2023 08:48-0400 SaO2% (BldA) [Mass fraction] 98 % Geno Hatr MD Work Phone: [facility] 08-28-2023 08:48-0400 Systolic blood pressure 129 mm[Hg] Geno Hart MD Work Phone: [facility] 08-27-2023 08:25-0400 Body height 160 cm William Messina DO Work Phone: [facility] 08-27-2023 08:25-0400 Body mass index (BMI) [Ratio] 22.67 kg/m2 William Messina DO Work Phone: [facility] 08-27-2023 08:25-0400 Body weight 58.06 kg William Siddharth DO Work Phone: [facility] 08-27-2023 08:25-0400 Diastolic blood pressure 68 mm[Hg] William Messina DO Work Phone: [facility] 08-27-2023 08:25-0400 Heart rate 81 /min William Messina DO Work Phone: [facility] 08-27-2023 08:25-0400 SaO2% (BldA) [Mass fraction] 99 % William Messina DO Work Phone: [facility] 08-27-2023 08:25-0400 Systolic blood pressure 116 mm[Hg] William Messina DO Work Phone: [facility] 08-22-2023 10:38-0400 Body mass index (BMI) [Ratio] 23.19 kg/m2 Claudine Durán MD Work Phone: [facility] 08-22-2023 10:38-0400 Body temperature 96.01 [degF] Claudine Durán MD Work Phone: [facility] 08-22-2023 10:38-0400 Body weight 59.38 kg Claudine Durán MD Work Phone: [facility] 08-22-2023 10:38-0400 Diastolic blood pressure 72 mm[Hg] Claudine Durán MD Work Phone: [facility] 08-22-2023 10:38-0400 Heart rate 70 /min Claudine Durán MD Work Phone: [facility] 08-22-2023 10:38-0400 Respiratory rate 18 /min Clauidne Durán MD Work Phone: [facility] 08-22-2023 10:38-0400 SaO2% (BldA) [Mass fraction] 98 % Claudine Durán MD Work Phone: [facility] 08-22-2023 10:38-0400 Systolic blood pressure 116 mm[Hg] Claudine Durán MD Work Phone: [facility] 08-08-2023 14:39-0400 Body mass index (BMI) [Ratio] 22.32 kg/m2 Twyla Mason [employer].SUSTAINABILITY CONSULTANT Work Phone: [facility] 08-08-2023 14:39-0400 Body weight 57.15 kg Twyla Mason [employer].SUSTAINABILITY CONSULTANT Work Phone: [facility] 08-08-2023 14:39-0400 Diastolic blood pressure 72 mm[Hg] Twyla Mason [employer].SUSTAINABILITY CONSULTANT Work Phone: [facility] 08-08-2023 14:39-0400 Heart rate 78 /min Twyla Mason [employer].SUSTAINABILITY CONSULTANT Work Phone: [facility] 08-08-2023 14:39-0400 Systolic blood pressure 136 mm[Hg] Twyla Mason [employer].SUSTAINABILITY CONSULTANT Work Phone: [facility] 07-10-2023 14:22-0400 Body mass index (BMI) [Ratio] 21.79 kg/m2 Ijmbo Swanson [employer].SALES INCENTIVE ANALYST Work Phone: [facility] 07-10-2023 14:22-0400 Body weight 55.79 kg Jimbo Swanson [employer].SALES INCENTIVE ANALYST Work Phone: [facility] 07-10-2023 14:22-0400 Diastolic blood pressure 66 mm[Hg] Jimbo Swanson [employer].SALES INCENTIVE ANALYST Work Phone: [facility] 07-10-2023 14:22-0400 Heart rate 94 /min Jimbo Swanson [employer].SALES INCENTIVE ANALYST Work Phone: [facility] 07-10-2023 14:22-0400 Respiratory rate 16 /min Jimbo Swanson [employer].SALES INCENTIVE ANALYST Work Phone: [facility] 07-10-2023 14:22-0400 Systolic blood pressure 119 mm[Hg] Jimbo Swanson [employer].SALES INCENTIVE ANALYST Work Phone: [facility] 06-05-2023 14:44-0400 Body mass index (BMI) [Ratio] 21.91 kg/m2 Claudine Durán MD Work Phone: [facility] 06-05-2023 14:44-0400 Body temperature 98.2 [degF] Claudine Durán MD Work Phone: [facility] 06-05-2023 14:44-0400 Body weight 56.11 kg Claudine Durán MD Work Phone: [facility] 06-05-2023 14:44-0400 Diastolic blood pressure 74 mm[Hg] Claudine Durán MD Work Phone: [facility] 06-05-2023 14:44-0400 Heart rate 93 /min Claudine Durán MD Work Phone: [facility] 06-05-2023 14:44-0400 Respiratory rate 18 /min Claudine Durán MD Work Phone: [facility] 06-05-2023 14:44-0400 SaO2% (BldA) [Mass fraction] 96 % Claudine Durán MD Work Phone: [facility] 06-05-2023 14:44-0400 Systolic blood pressure 122 mm[Hg] Claudine Durán MD Work Phone: [facility] 04-30-2023 12:45-0400 Body temperature 97.6 [degF] Dr. Claudine Durán Work Phone: [facility] 04-30-2023 12:45-0400 Diastolic blood pressure 61 mm[Hg] Dr. Claudine Durán Work Phone: [facility] 04-30-2023 12:45-0400 Heart rate 97 /min Dr. Claudine Durán Work Phone: [facility] 04-30-2023 12:45-0400 Respiratory rate 16 /min Dr. Claudine Durán Work Phone: [facility] 04-30-2023 12:45-0400 SaO2% (BldA) [Mass fraction] 95 % Dr. Claudine Durán Work Phone: [facility] 04-30-2023 12:45-0400 Systolic blood pressure 102 mm[Hg] Dr. Claudine Durán Work Phone: 7(162)738-282224 [place] [address] 04-25-2023 12:25-0500 Body height 160.[address] Claudine Durán Work Phone: 2(286)807-014724 [place] [address] 04-25-2023 12:25-0500 Body weight 54.[address] Claudine Durán Work Phone: 1(822)806-062324 [place] [address] 04-24-2023 12:11-0500 Body mass index (BMI) [Ratio] 21.2 kg/m2 Dr. Claudine Durán Work Phone: 7(695)771-792624 [place] [address] 04-16-2023 07:18-0500 Heart rate 94 /min Dr. Claudine Durán Work Phone: 5(354)148-673924 [place] [address] 04-16-2023 07:18-0500 Respiratory rate 18 /min Dr. Claudine Durán Work Phone: 6(080)647-982324 [place] [address] 04-16-2023 07:18-0500 SaO2% (BldA) [Mass fraction] 98 % Dr. Claudine Durán Work Phone: 6(022)207-190224 [place] [address] 04-15-2023 14:36-0500 Body temperature 98.5 [degF] Dr. Claudine Durán Work Phone: 1(192)613-407024 [place] [address] 04-15-2023 14:36-0500 Diastolic blood pressure 61 mm[Hg] Dr. Claudine Durán Work Phone: 1(198)656-553124 [place] [address] 04-15-2023 14:36-0500 Systolic blood pressure 106 mm[Hg] Dr. Claudine Durán Work Phone: 1(072)789-811324 [place] [address] 04-11-2023 15:11-0500 Body height 160.[address] Claudine Durán Work Phone: 2(226)150-473224 [place] [address] 04-11-2023 15:11-0500 Body weight 58.[address] Claudine Durán Work Phone: 3(629)793-380424 [place] [address] 04-10-2023 14:06-0500 Body mass index (BMI) [Ratio] 22.9 kg/m2 Dr. Claudine Durán Work Phone: 5(737)033-658547 [place] [address] 04-05-2023 08:40-0500 Body temperature 98.1 [degF] Dr. Claudine Durán Work Phone: 9(574)782-800324 [place] [address] 04-05-2023 08:40-0500 Diastolic blood pressure 65 mm[Hg] Dr. Claudine Durán Work Phone: 1(089)738-316724 [place] [address] 04-05-2023 08:40-0500 Heart rate 98 /min Dr. Claudine Durán Work Phone: 0(899)787-300224 [place] [address] 04-05-2023 08:40-0500 Respiratory rate 16 /min Dr. Claudine Durán Work Phone: 3(885)839-318224 [place] [address] 04-05-2023 08:40-0500 SaO2% (BldA) [Mass fraction] 96 % Dr. Claudine Durán Work Phone: 3(779)077-989124 [place] [address] 04-05-2023 08:40-0500 Systolic blood pressure 117 mm[Hg] Dr. Claudine Durán Work Phone: 8(355)261-813424 [place] [address] 04-05-2023 01:48-0500 Body mass index (BMI) [Ratio] 21.5 kg/m2 Dr. Claudine Durán Work Phone: 1(655)658-745547 [place] [address] 04-05-2023 01:48-0500 Body weight 55.[address] Claudine Durán Work Phone: 6(720)810-464624 [place] [address] 04-04-2023 13:52-0500 Body height 160.[address] Claudine Durán Work Phone: 0(628)054-703247 [place] [address] 03-31-2023 20:00-0500 Diastolic blood pressure 50 mm[Hg] Dr. Claudine Durán Work Phone: [facility] 03-31-2023 20:00-0500 Heart rate 77 /min Dr. Claudine Durán Work Phone: 0(332)968-818947 [place] [address] 03-31-2023 20:00-0500 Respiratory rate 17 /min Dr. Claudine Durán Work Phone: 2(662)665-989824 [place] [address] 03-31-2023 20:00-0500 SaO2% (BldA) [Mass fraction] 98 % Dr. Claudine Durán Work Phone: 2(177)976-537624 [place] [address] 03-31-2023 20:00-0500 Systolic blood pressure 108 mm[Hg] Dr. Claudine Durán Work Phone: 2(958)021-597924 [place] [address] 03-31-2023 16:48-0500 Body height 160.[address] Claudine Durán Work Phone: 4(325)292-050624 [place] [address] 03-31-2023 16:48-0500 Body mass index (BMI) [Ratio] 23.4 kg/m2 Dr. Claudine Durán Work Phone: 7(223)089-419724 [place] [address] 03-31-2023 16:48-0500 Body temperature 98.3 [degF] Dr. Claudine Durán Work Phone: 8(065)063-465624 [place] [address] 03-31-2023 16:48-0500 Body weight 60.[address] Claudine Durán Work Phone: 3(769)033-302824 [place] [address] 03-28-2023 20:54-0500 Diastolic blood pressure 79 mm[Hg] Dr. Claudine Durán Work Phone: 6(625)102-314224 [place] [address] 03-28-2023 20:54-0500 Heart rate 91 /min Dr. Claudine Durán Work Phone: 8(818)260-418024 [place] [address] 03-28-2023 20:54-0500 Respiratory rate 19 /min Dr. Claudine Durán Work Phone: 9(731)305-096624 [place] [address] 03-28-2023 20:54-0500 SaO2% (BldA) [Mass fraction] 97 % Dr. Claudine Durán Work Phone: 1(167)691-608524 [place] [address] 03-28-2023 20:54-0500 Systolic blood pressure 121 mm[Hg] Dr. Claudine Durán Work Phone: [facility] 03-28-2023 16:33-0500 Body height 160.[address] Claudine Durán Work Phone: 2(358)659-204824 [place] [address] 03-28-2023 16:33-0500 Body mass index (BMI) [Ratio] 23.7 kg/m2 Dr. Claudine Durán Work Phone: 4(406)811-209624 [place] [address] 03-28-2023 16:33-0500 Body temperature 97.3 [degF] Dr. Claudine Durán Work Phone: 1(316)300-980824 [place] [address] 03-28-2023 16:33-0500 Body weight 60.[address] Claudine Durán Work Phone: 0(314)102-430824 [place] [address] 03-27-2023 13:43-0500 Heart rate 101 /min Dr. Claudine Durán Work Phone: 4(208)821-203824 [place] [address] 03-27-2023 13:43-0500 Respiratory rate 19 /min Dr. Claudine Durán Work Phone: 5(936)716-602324 [place] [address] 03-27-2023 10:00-0500 Body temperature 98.2 [degF] Dr. Claudine Durán Work Phone: 1(543)318-113224 [place] [address] 03-27-2023 10:00-0500 Diastolic blood pressure 63 mm[Hg] Dr. Claudine Durán Work Phone: 9(067)603-309647 [place] [address] 03-27-2023 10:00-0500 SaO2% (BldA) [Mass fraction] 94 % Dr. Claudine Durán Work Phone: 1(480)889-859524 [place] [address] 03-27-2023 10:00-0500 Systolic blood pressure 105 mm[Hg] Dr. Claudine Durán Work Phone: 8(812)084-841224 [place] [address] 03-27-2023 05:41-0500 Body mass index (BMI) [Ratio] 22.6 kg/m2 Dr. Claudine Durán Work Phone: 6(820)908-217747 [place] [address] 03-27-2023 05:41-0500 Body weight 58.[address] Claudine Durán Work Phone: [facility] 03-26-2023 15:00-0500 Diastolic blood pressure 75 mm[Hg] [facility] 03-26-2023 15:00-0500 Heart rate 87 /min [facility] 03-26-2023 15:00-0500 Respiratory rate 19 /min [facility] 03-26-2023 15:00-0500 SaO2% (BldA) [Mass fraction] 95 % [facility] 03-26-2023 15:00-0500 Systolic blood pressure 128 mm[Hg] [facility] 03-26-2023 10:48-0500 Body height 165.1 cm [facility] 03-26-2023 10:48-0500 Body mass index (BMI) [Ratio] 23.3 kg/m2 [facility] 03-26-2023 10:48-0500 Body temperature 97.3 [degF] [facility] 03-26-2023 10:48-0500 Body weight 63.5 kg [facility] 03-19-2023 16:51-0500 Diastolic blood pressure 65 mm[Hg] [facility] 03-19-2023 16:51-0500 Systolic blood pressure 117 mm[Hg] [facility] 03-19-2023 10:07-0500 Body height 165.1 cm [facility] 03-19-2023 10:07-0500 Body mass index (BMI) [Ratio] 20.3 kg/m2 [facility] 03-19-2023 10:07-0500 Body temperature 98.3 [degF] [facility] 03-19-2023 10:07-0500 Body weight 55.48 kg [facility] 03-19-2023 10:07-0500 Heart rate 111 /min [facility] 03-19-2023 10:07-0500 Respiratory rate 16 /min [facility] 03-19-2023 10:07-0500 SaO2% (BldA) [Mass fraction] 100 % [facility] 12-20-2023 10:36-0500 Body temperature 98.6 [degF] Adri Callow [employer].SUSTAINABILITY CONSULTANT Work Phone: [facility] 02-07-2023 10:36-0500 Body weight 59.69 kg Adri Callow [employer].SUSTAINABILITY CONSULTANT Work Phone: [facility] 02-07-2023 10:36-0500 Diastolic blood pressure 82 mm[Hg] Adri Callow [employer].SUSTAINABILITY CONSULTANT Work Phone: [facility] 02-07-2023 10:36-0500 Heart rate 87 /min Adri Callow LE[employer]KER.SUSTAINABILITY CONSULTANT Work Phone: [facility] 02-07-2023 10:36-0500 Respiratory rate 18 /min Adri Callow [employer].SUSTAINABILITY CONSULTANT Work Phone: [facility] 02-07-2023 10:36-0500 SaO2% (BldA) [Mass fraction] 98 % Adri Callow [employer].SUSTAINABILITY CONSULTANT Work Phone: [facility] 02-07-2023 10:36-0500 Systolic blood pressure 134 mm[Hg] Adri Callow [employer].SUSTAINABILITY CONSULTANT Work Phone: [facility] 01-04-2023 10:33-0500 Body weight 58.06 kg Jimbo Swanson [employer].SALES INCENTIVE ANALYST Work Phone: [facility] 01-04-2023 10:33-0500 Diastolic blood pressure 75 mm[Hg] Jimbo Swanson [employer].SALES INCENTIVE ANALYST Work Phone: [facility] 01-04-2023 10:33-0500 Heart rate 77 /min Jimbo Swanson LE[employer].SALES INCENTIVE ANALYST Work Phone: [facility] 01-04-2023 10:33-0500 Respiratory rate 16 /min Jimbo Swanson LE[employer].SALES INCENTIVE ANALYST Work Phone: [facility] 01-04-2023 10:33-0500 Systolic blood pressure 128 mm[Hg] Jimbo Swanson [employer].SALES INCENTIVE ANALYST Work Phone: [facility] 10-27-2022 09:03-0400 Body weight 59.42 kg Jimbo Swanson [employer].SALES INCENTIVE ANALYST Work Phone: [facility] 10-27-2022 09:03-0400 Diastolic blood pressure 66 mm[Hg] Jimbo Swanson LE[employer] MAK[employer].SALES INCENTIVE ANALYST Work Phone: [facility] 10-27-2022 09:03-0400 Heart rate 76 /min Jimbo Swanson LE[employer].SALES INCENTIVE ANALYST Work Phone: [facility] 10-27-2022 09:03-0400 Respiratory rate 16 /min Jimbo Swanson LE[employer] MAK[employer].SALES INCENTIVE ANALYST Work Phone: [facility] 10-27-2022 09:03-0400 Systolic blood pressure 119 mm[Hg] Jimbo Swanson [employer].SALES INCENTIVE ANALYST Work Phone: [facility] 08-29-2022 09:26-0400 Body height 162.6 cm Rachelle Schulte [employer].SUSTAINABILITY CONSULTANT Work Phone: [facility] 08-29-2022 09:26-0400 Body weight 58.51 kg Rachelle Schulte [employer].SUSTAINABILITY CONSULTANT Work Phone: [facility] 08-29-2022 09:26-0400 Diastolic blood pressure 78 mm[Hg] Rachelle Schulte [employer].SUSTAINABILITY CONSULTANT Work Phone: [facility] 08-29-2022 09:26-0400 Heart rate 75 /min Rachelle Schulte [employer].SUSTAINABILITY CONSULTANT Work Phone: [facility] 08-29-2022 09:26-0400 SaO2% (BldA) [Mass fraction] 98 % Rachelle Schulte [employer]KER.SUSTAINABILITY CONSULTANT Work Phone: [facility] 08-29-2022 09:26-0400 Systolic blood pressure 142 mm[Hg] Rachelle Schulte [employer]KER.SUSTAINABILITY CONSULTANT Work Phone: [facility] 07-20-2022 09:28-0400 Body weight 58.06 kg Florence Collins MD Work Phone: [facility] 07-20-2022 09:28-0400 Diastolic blood pressure 72 mm[Hg] Florence Collins MD Work Phone: [facility] 07-20-2022 09:28-0400 Heart rate 50 /min Florence Collins MD Work Phone: [facility] 07-20-2022 09:28-0400 Respiratory rate 17 /min Florence Collins MD Work Phone: [facility] 07-20-2022 09:28-0400 SaO2% (BldA) [Mass fraction] 100 % Florence Collins MD Work Phone: [facility] 07-20-2022 09:28-0400 Systolic blood pressure 122 mm[Hg] Florence Collins MD Work Phone: [facility] 03-13-2022 10:13-0500 Body temperature 96.69 [degF] Claudine Durán MD Work Phone: [facility] 03-13-2022 10:13-0500 Body weight 59.56 kg Claudine Durán MD Work Phone: [facility] 03-13-2022 10:13-0500 Diastolic blood pressure 68 mm[Hg] Claudine Durán MD Work Phone: [facility] 03-13-2022 10:13-0500 Heart rate 75 /min Claudine Durán MD Work Phone: [facility] 03-13-2022 10:13-0500 Respiratory rate 18 /min Claudine Durán MD Work Phone: [facility] 03-13-2022 10:13-0500 SaO2% (BldA) [Mass fraction] 100 % Claudine Durán MD Work Phone: [facility] 03-13-2022 10:13-0500 Systolic blood pressure 112 mm[Hg] Claudine Durán MD Work Phone: [facility] 11-29-2021 10:07-0400 Body weight 58.51 kg Florence Collins MD Work Phone: [facility] 11-29-2021 10:07-0400 Diastolic blood pressure 76 mm[Hg] Florence Collins MD Work Phone: [facility] 11-29-2021 10:07-0400 Heart rate 92 /min Florence Collins MD Work Phone: [facility] 11-29-2021 10:07-0400 Respiratory rate 18 /min Florence Collins MD Work Phone: [facility] 11-29-2021 10:07-0400 SaO2% (BldA) [Mass fraction] 97 % Florence Collins MD Work Phone: [facility] 11-29-2021 10:07-0400 Systolic blood pressure 122 mm[Hg] Florence Collins MD Work Phone: [facility] 11-10-2021 09:22-0400 Body weight 60.33 kg Jimbo Swanson [employer].SALES INCENTIVE ANALYST Work Phone: [facility] 11-10-2021 09:22-0400 Diastolic blood pressure 80 mm[Hg] Jimbo Swanson [employer].SALES INCENTIVE ANALYST Work Phone: [facility] 11-10-2021 09:22-0400 Heart rate 76 /min Jimbo Swanson LE[employer].SALES INCENTIVE ANALYST Work Phone: [facility] 11-10-2021 09:22-0400 Respiratory rate 16 /min Jimbo Swanson LEATHER [employer]SALES INCENTIVE ANALYST Work Phone: [facility] 11-10-2021 09:22-0400 Systolic blood pressure 152 mm[Hg] Jimbo Swanson LEATHER [employer]SALES INCENTIVE ANALYST Work Phone: [facility] 09-20-2021 13:45-0400 Body weight 58.51 kg Jimbo Swanson LEATHER [employer]SALES INCENTIVE ANALYST Work Phone: [facility] 09-20-2021 13:45-0400 Diastolic blood pressure 64 mm[Hg] Jimbo Swanson LEATHER [employer] MAKER.SALES INCENTIVE ANALYST Work Phone: [facility] 09-20-2021 13:45-0400 Heart rate 85 /min Jimbo Swanson LEATHER [employer]KER.SALES INCENTIVE ANALYST Work Phone: [facility] 09-20-2021 13:45-0400 SaO2% (BldA) [Mass fraction] 96 % Jimbo Swanson LEATHER [employer] MAKER.SALES INCENTIVE ANALYST Work Phone: [facility] 09-20-2021 13:45-0400 Systolic blood pressure 128 mm[Hg] Jimbo Swanson LEATHER [employer] MAKER.SALES INCENTIVE ANALYST Work Phone: [facility] 08-12-2021 11:01-0400 Body height 162.6 cm William Messina DO Work Phone: [facility] 08-12-2021 11:01-0400 Body weight 59.42 kg William Messina DO Work Phone: [facility] 08-12-2021 11:01-0400 Diastolic blood pressure 74 mm[Hg] William Messina DO Work Phone: [facility] 08-12-2021 11:01-0400 Heart rate 72 /min William Messina DO Work Phone: [facility] 08-12-2021 11:01-0400 SaO2% (BldA) [Mass fraction] 99 % William Messina DO Work Phone: [facility] 08-12-2021 11:01-0400 Systolic blood pressure 130 mm[Hg] William Messina DO Work Phone: [facility] 07-11-2021 08:10-0400 Body weight 58.06 kg Claudine Durán MD Work Phone: [facility] 07-11-2021 08:10-0400 Diastolic blood pressure 74 mm[Hg] Claudine Durán MD Work Phone: [facility] 07-11-2021 08:10-0400 Heart rate 76 /min Claudine Durán MD Work Phone: [facility] 07-11-2021 08:10-0400 Systolic blood pressure 122 mm[Hg] Claudine Durán MD Work Phone: [facility] 2021 14:57-0400 Body height 162.6 cm Mirian Andujar MD Work Phone: [facility] 2021 14:57-0400 Body weight 58.33 kg Mirian Andujar MD Work Phone: [facility] 2021 14:57-0400 Diastolic blood pressure 67 mm[Hg] Mirian Andujar MD Work Phone: [facility] 2021 14:57-0400 Heart rate 98 /min Mirian Andujar MD Work Phone: [facility] 2021 14:57-0400 Respiratory rate 14 /min Mirian Andujar MD Work Phone: [facility] 2021 14:57-0400 SaO2% (BldA) [Mass fraction] 99 % Mirian Andujar MD Work Phone: [facility] 2021 14:57-0400 Systolic blood pressure 144 mm[Hg] Mirian Andujar MD Work Phone: [facility] 03-14-2021 08:08-0500 Body height 162.6 cm Claudine Durán MD Work Phone: [facility] 03-14-2021 08:08-0500 Body temperature 97.5 [degF] Claudine Durán MD Work Phone: [facility] 03-14-2021 08:08-0500 Body weight 58.06 kg Claudine Durán MD Work Phone: [facility] 03-14-2021 08:08-0500 Diastolic blood pressure 62 mm[Hg] Claudine Durán MD Work Phone: [facility] 03-14-2021 08:08-0500 Heart rate 87 /min Claudine Durán MD Work Phone: [facility] 03-14-2021 08:08-0500 Respiratory rate 14 /min Claudine Durán MD Work Phone: [facility] 03-14-2021 08:08-0500 SaO2% (BldA) [Mass fraction] 99 % Claudine Durán MD Work Phone: [facility] 03-14-2021 08:08-0500 Systolic blood pressure 118 mm[Hg] Claudine Durán MD Work Phone: [facility] Encounters Encounter Date Encounter Type Care Provider Facility Start: 09-29-2024 ambulatory Claudine D Talampas Facilit y:[facility] Start: 09-29-2024 ambulatory Claudine D Talampas Facilit y:[facility] Start: 09-25-2024 ambulatory Claudine D Talampas Facilit y:[facility] Start: 09-22-2024 ambulatory Claudine D Talampas Facilit y:[facility] Start: 09-18-2024 ambulatory Claudine D Talampas Facilit y:[facility] Start: 09-18-2024 Registered Referred Zaynab Roque Start: 09-15-2024 ambulatory Claudine D Talampas Facilit y:[facility] Start: 09-15-2024 Registered Referred Zaynab Roque Start: 09-11-2024 ambulatory Claudine D Talampas Facilit y:[facility] Start: 09-11-2024 Registered Referred Zaynab Roque Start: 09-08-2024 ambulatory Claudine D Talampas Facilit y:[facility] Start: 09-08-2024 Registered Referred Zaynab Roque Start: 09-04-2024 ambulatory Zaynab romeo OLS Facility:[facility] Start: 09-04-2024 Registered Referred Zaynab Roque Start: 09-01-2024 ambulatory Zaynab romeo OLS Facility:[facility] Start: 09-01-2024 Registered Referred Zaynab Roque Start: 08-28-2024 ambulatory Zaynab romeo OLS Facility:[facility] Start: 08-28-2024 [facility] [place] Start: 08-27-2024 Non-patient / Non-visit Dr. Yaima [facility] Work Phone: Start: 08-26-2024 Non-patient / Non-visit Dr. Yaima [facility] Work Phone: Start: 08-25-2024 Non-patient / Non-visit Dr. Yaima [facility] Work Phone: Start: 08-24-2024 Non-patient / Non-visit Dr. Edouard House MD -[facility] Work Phone: Start: 08-23-2024 End: 08-27-2024 ambulatory Burak Amanda Facility:[facility] Start: 08-23-2024 End: 08-27-2024 Evaluation and management of inpatient Dr. Erasmo House MD -[facility] Work Phone: Start: 08-23-2024 End: 08-27-[address] Claudine Durán MD Work Phone: -[facility] 3 Start: 08-21-2024 End: 08-21-2024 Anticoagulant drug monitoring [facility] Work Phone: [facility] [place] Comment on above: Personal history of DVT (deep vein thrombosis) (Primary Dx) Start: 08-21-2024 End: 08-21-2024 ambulatory CLAUDINE DURÁN Facility:[facility] Start: 08-20-2024 End: 09-18-[address] Claudine Durán MD Work Phone: -Cardiac Rehab Work Phone: Start: 08-20-[address] Claudine Durán MD Work Phone: -Cardiac Rehab Work Phone: Start: 08-20-2024 End: 09-18-[address] Claudine Durán MD Work Phone: -Cardiac Rehab Start: 08-18-2024 End: 08-18-[address] Claudine Durán MD Work Phone: -Cardiac Rehab Comment on above: Refill Request Start: 08-18-2024 End: 08-18-[address] Claudine Durán MD Work Phone: -Cardiac Rehab Work Phone: Start: 08-06-2024 End: 08-06-2024 Anticoagulant drug monitoring [facility] Work Phone: [facility] [place] Comment on above: Personal history of DVT (deep vein thrombosis) (Primary Dx) Start: 08-06-2024 End: 08-06-2024 ambulatory CLAUDINE DURÁN Facility:[facility] Start: 07-29-2024 End: 07-29-2024 ambulatory Jane Rick RN Work Phone: [facility] Start: 07-29-2024 End: 07-29-2024 Coordination of care plan Jane Rick RN Work Phone: [facility] Comment on above: Care Coordination (C gaston review and outreach for CHF GDMT Care Path/) Start: 07-23-2024 End: 07-23-2024 ambulatory Brissa Chester APRN.CNP Work Phone: Cardiology Comment on above: ECHO and LAB RESULTS Start: 07-23-2024 End: 07-23-2024 E-mail encounter from caregiver Brissa Chester APRN.CNP Work Phone: Cardiology Start: 07-22-2024 End: 07-22-2024 ambulatory CLAUDINE DURÁN Facility:[facility] Start: 07-22-2024 End: 07-22-2024 Patient encounter procedure Brissa Chester APRN.CNP Work Phone: Cardiology Comment on above: S/P TAVR (transcathe ter aortic valve replacement) (Primary Dx); Nonrheumatic aortic valve stenosis; Nonrheumatic mitral valve stenosis; Nonrheumatic tricuspid valve regurgitation; Essential hypertension; Disseminated histoplasmosis; History of recurrent deep vein thrombosis (DVT); History of GI bleed; History of COPD Start: 07-22-2024 End: 07-22-2024 ambulatory CLAUDINE DURÁN Facility:[facility] Start: 07-21-2024 End: 07-21-2024 Anticoagulant drug monitoring [facility] Work Phone: Coumadin [facility] [place] Comment on above: Personal history of DVT (deep vein thrombosis) (Primary Dx) Start: 07-21-2024 End: 07-21-2024 ambulatory CLAUDINE DURÁN Facility:[facility] Start: 07-18-2024 End: 07-19-[address] Claudine Durán MD Work Phone: [facility] Work Phone: Start: 07-18-2024 End: 07-19-[address] Claudine Durán MD Work Phone: -Cardiac Rehab Work Phone: Start: 07-08-2024 End: 07-08-2024 ambulatory CLAUDINE DURÁN Facility:[facility] Start: 07-07-2024 End: 07-08-2024 Anticoagulant drug monitoring [facility] [place] Comment on above: Personal history of DVT (deep vein thrombosis) (Primary Dx) Refill Request Start: 07-07-2024 End: 07-07-2024 ambulatory CLAUDINE DURÁN Facility:[facility] Start: 07-02-2024 End: 07-02-2024 Refill Jimbo Swanson APRN.CNS Work Phone: [facility] [place] Comment on above: Refill Request Start: 06-25-2024 End: 06-25-2024 ambulatory Pili Benitez RN [facility] Comment on above: Bi-Weekly Outreach ( Recurring) for Chronic Disease Management Start: 06-21-2024 End: 06-21-2024 Refill Claudine Durán MD Work Phone: [facility] [place] Comment on above: Refill Request Start: 06-20-2024 End: 06-20-[address] Diaz Puckett MD -[place] [facility] Work Phone: Start: 06-20-2024 End: 06-23-2024 Refill Florence Clolins MD Work Phone: Pulmonary Medicine Comment on above: Refill Request Start: 06-18-2024 End: 06-18-2024 ambulatory [facility] Facility:[facility] Start: 06-18-2024 End: 06-18-[address] Claudine Durán MD Work Phone: -Cardiac Rehab Work Phone: Start: 06-16-2024 End: 06-16-2024 ambulatory GENO HART Facility:[facility] Start: 06-11-2024 End: 06-11-2024 ambulatory CLAUDINE DURÁN Facility:[facility] Start: [address] Claudine Durán MD Work Phone: -Cardiac Rehab Work Phone: Start: 05-28-2024 End: 05-28-[address] Claudine Durán MD Work Phone: [facility] Work Phone: Start: 05-28-2024 End: 05-28-[address] Claudine Durán MD Work Phone: -Cardiac Rehab Work Phone: Start: 05-28-2024 End: 05-28-2024 ambulatory [facility] Facility:[facility] Start: 05-26-2024 End: 05-26-2024 Patient Outreach Pili Benitez RN [facility] Comment on above: Transition Of Care W [place] phone contact (Recurring) for Transitional Care Management Start: 05-21-2024 End: 05-22-2024 Telephone encounter Jimbo Swanson APRN.CNS Work Phone: [facility] [place] Comment on above: Consult Start: 05-20-2024 End: 05-20-2024 Patient encounter procedure Jimbo Swanson LEATHER [employer] MAKER.SALES INCENTIVE ANALYST Work Phone: [facility] [place] Comment on above: Medicare annual well ness visit, subsequent (Primary Dx); Cough due to bronchospasm; Rheumatoid arthritis involving multiple sites with positive rheumatoid factor (HCC); Low back pain with right-sided sciatica, unspecified back pain laterality, unspecified chronicity; Chronic heart failure with preserved ejection fraction (HFpEF) (HCC); Nonrheumatic aortic valve stenosis; S/P TAVR (transcatheter aortic valve replacement) Start: 05-20-2024 End: 05-20-2024 ambulatory [facility] Facility:[facility] Start: 05-20-2024 End: 05-20-2024 Anticoagulant drug monitoring [facility] Work Phone: [facility] [place] Comment on above: Personal history of DVT (deep vein thrombosis) (Primary Dx) Start: 05-19-2024 End: 05-19-2024 Patient Outreach Pili Benitez RN [facility] Comment on above: Transition Of Care W [place] phone contact (Recurring) for Transitional Care Management, Started Bi-Weekly Outreach (Recurring) for Chronic Disease Management Start: 05-12-2024 End: 05-12-2024 Patient Outreach Pili Benitez RN [facility] Comment on above: Transition Of Care [place] phone contact (Recurring) for Transitional Care Management Start: 05-09-2024 End: 05-12-2024 Follow-up encounter Jimbo Swanson CONNIE.SALES INCENTIVE ANALYST Work Phone: [facility] [place] Comment on above: Anticoagulation Start: 05-09-2024 End: 05-09-2024 ambulatory [facility] Facility:[facility] Start: 05-05-2024 End: 05-05-2024 Patient Outreach Pili Benitez RN [facility] Comment on above: Transition Of Care [...] Evaluation and management of inpatient JUVENCIO SAEED Facility:[facility] Start: 05-01-2024 End: 05-01-2024 ambulatory CLAUDINE DURÁN Facility:[facility] Start: 05-01-2024 End: 05-01-2024 Anticoagulant drug monitoring [facility] Work Phone: [facility]madin [facility] [place] Comment on above: Personal history of DVT (deep vein thrombosis) (Primary Dx) Start: 04-30-2024 End: 04-30-2024 Admission to same day surgery center Anesthesia Clearance Work Phone: [facility] Work Phone: Start: 04-30-2024 End: 04-30-2024 ambulatory LEANDRA VENEGAS Facility:[facility] Start: 04-30-2024 End: 04-30-2024 Patient encounter procedure Anesthesia Clearance Work Phone: Cardiothoracic Comment on above: Encounter for preope rative anesthesiology assessment for cardiac surgery (Primary Dx) Nonrheumatic aortic valve stenosis (Primary Dx) Start: 04-30-2024 End: 04-30-2024 Subsequent hospital visit by physician Xr Chest Main J1 Work Phone: Radiology Comment on above: Nonrheumatic aortic valve stenosis [I35.0] Start: 04-30-2024 End: 04-30-2024 ambulatory LEANDRA VENEGAS Facility:[facility] Start: 04-21-2024 End: 04-21-2024 ambulatory GENO HART Facility:[facility] Start: 04-21-2024 End: 04-21-2024 Patient encounter procedure Geno Hart MD Work Phone: [facility] [place] Comment on above: Disseminated histopl asmosis (Primary Dx); Bronchiectasis without complication (HCC); COPD without exacerbation (HCC); Rheumatoid arthritis with positive rheumatoid factor, involving unspecified site (HCC); History of immunosuppressive therapy; History of penicillin allergy; Encounter for long-term (current) use of antibiotics; Counseling, unspecified Start: 04-16-2024 End: 04-16-2024 ambulatory Soni Held LEATHER [employer] MAKER.SALES INCENTIVE ANALYST Work Phone: Cardiology Comment on above: Structural Dental Cl earance Start: 04-15-2024 End: 04-15-2024 ambulatory Leandra Rees Held LEATHER [employer] MAKER.SALES INCENTIVE ANALYST Work Phone: Cardiology Start: 04-15-2024 End: 04-15-2024 Telephone encounter Leandra Venegas LEATHER [employer] MAKER.SALES INCENTIVE ANALYST Work Phone: Cardiology Comment on above: Appointment (TAVR sc heduling) Start: 04-14-2024 End: 04-14-2024 ambulatory Pili Benitez RN [facility] Comment on above: Initial enrollment o [place] for Chronic Disease Management Start: 04-05-2024 End: 04-05-2024 ambulatory Juvencio Saeed MD Work Phone: Cardiology Start: 04-03-2024 End: 04-03-2024 ambulatory CLAUDINE DURÁN Facility:[facility] Start: 04-03-2024 End: 04-03-2024 Anticoagulant drug monitoring [facility] Work Phone: [facility] [place] Comment on above: Personal history of DVT (deep vein thrombosis) (Primary Dx) Start: 04-02-2024 End: 04-03-2024 Telephone encounter Bartolome Francis MD Work Phone: Cardiothoracic Comment on above: Referral Information (Surgical Consult with Dr. Francis) Start: 04-01-2024 End: 04-02-2024 Telephone encounter Bartolome Francis MD Work Phone: Cardiothoracic Comment on above: Insurance Authorizat ion Start: 03-31-2024 End: 03-31-2024 ambulatory Yu Torres MA [facility] Comment on above: TAVR Meeting Start: 03-31-2024 End: 03-31-2024 E-mail encounter from caregiver Yu Torres MA [facility] Start: 03-31-2024 End: 03-31-2024 Patient encounter procedure Yu Torres MA [facility] Comment on above: Appointment Scheduli Population Health Na vigation Outreach ([employer] High Risk - Attempt 3) Start: 03-26-2024 End: 03-26-2024 ambulatory Yu Brian DELGADO [facility] Start: 03-26-2024 End: 03-26-2024 Patient encounter procedure Yudeshawn Torres MA [facility] Comment on above: Population Health Na vigation Outreach ([employer] High Risk - Attempt 2) Start: 03-25-2024 End: 03-25-2024 Subsequent hospital visit by physician [facility] Work Phone: Molecular Imaging Comment on above: Nonrheumatic aortic valve stenosis [I35.0] Start: 03-25-2024 End: 03-25-2024 Patient encounter procedure Pulm Fct Lab J-1 Pulmonary Medicine Comment on above: Nonrheumatic aortic valve stenosis (Primary Dx) Start: 03-25-2024 End: 03-25-2024 ambulatory BARTOLOME FRANCIS Pulmonary Medicine Comment on above: Spirometry Start: 03-25-2024 End: 03-25-2024 Subsequent hospital visit by physician [facility] Start: 03-24-2024 End: 03-25-2024 ambulatory MICHAEL BEAVERS Facility:[facility] Start: 03-23-2024 End: 03-23-2024 Telephone encounter Michael Beavers MD Work Phone: Cardiology Comment on above: Patient Education Start: 03-21-2024 Encounter for preprocedural cardiovascular examination MICHAEL BEAVERS [facility] Start: 03-21-2024 End: 03-21-2024 Subsequent hospital visit by physician Xr Chest Main J1 Work Phone: Radiology Comment on above: Nonrheumatic aortic valve stenosis [I35.0] Start: 03-21-2024 End: 03-21-2024 ambulatory Yu Torres MA [facility] [place] [facility] Start: 03-21-2024 End: 03-21-2024 Patient encounter procedure [...] encounter status Juvencio Saeed MD Work Phone: [facility] Start: 02-29-2024 End: 02-29-2024 Office outpatient visit 15 minutes Claudine Durán MD Work Phone: Internal Medicine [place] Comment on above: Chronic heart failur e with preserved ejection fraction (HFpEF) (HCC) (Primary Dx); Rheumatoid arthritis with positive rheumatoid factor, involving unspecified site (HCC); COPD without exacerbation (HCC); Bronchiectasis without complication (HCC); Nonrheumatic aortic valve stenosis; Screening for depression; Encounter for screening examination for other mental health and behavioral disorders Start: 02-29-2024 End: 02-29-2024 Anticoagulant drug monitoring [facility] Work Phone: [facility] [place] Comment on above: Personal history of DVT (deep vein thrombosis) (Primary Dx) Start: 02-29-2024 End: 02-29-2024 ambulatory CLAUDINE DURÁN Facility:[facility] Start: 02-20-2024 End: 02-21-2024 Refill Geno Hart MD Work Phone: [facility] [place] [facility] of Infectious Disease Comment on above: Refill Request Start: 01-31-2024 End: 01-31-2024 ambulatory CLAUDINE DURÁN Facility:[facility] Start: 01-31-2024 End: 01-31-2024 Anticoagulant drug monitoring [facility] Work Phone: [facility] [place] Comment on above: Personal history of DVT (deep vein thrombosis) (Primary Dx) Start: 01-29-2024 End: 01-29-2024 ambulatory Ilda Miller RN Work Phone: [facility] Comment on above: Community Monitoring Outreach (2nd attempt Telephonic Outreach [facility] Home Monitoring) Start: 01-21-2024 End: 01-21-2024 ambulatory Ilda Miller RN Work Phone: [facility] Comment on above: Community Monitoring Outreach (Telephonic Outreach [facility] Home Monitoring) Start: 01-18-2024 End: 01-18-2024 ambulatory BIBI ALEGRIA Facility:[facility] Start: 01-10-2024 End: 01-10-2024 ambulatory CLAUDINE DURÁN Facility:[facility] Start: 01-10-2024 End: 01-10-2024 Anticoagulant drug monitoring [facility] Work Phone: [facility] [place] Comment on above: Personal history of DVT (deep vein thrombosis) (Primary Dx) Start: 01-08-2024 End: 01-08-2024 ambulatory Monica Newman-Ponchohochristofer [employer] MAKER.SUSTAINABILITY CONSULTANT Work Phone: Cardiology Start: 01-08-2024 End: 01-08-2024 Patient encounter procedure Monica Trent-Marshall [employer]ATH[employer] MAKER.SUSTAINABILITY CONSULTANT Work Phone: Cardiology Comment on above: TAVR Consult Start: 01-08-2024 End: 01-08-2024 Patient encounter status Monica Keri [employer]ATH[employer] MAKER.SUSTAINABILITY CONSULTANT Work Phone: [facility] Start: 01-04-2024 End: 01-04-2024 Telephone encounter Geno Hart MD Work Phone: [place] [facility] Comment on above: Results Start: 01-02-2024 End: 01-02-2024 Patient encounter procedure Lili Roche MD Work Phone: Cardiology Comment on above: Rheumatoid arthritis with positive rheumatoid factor, involving unspecified site (HCC) (Primary Dx); Nonrheumatic aortic valve stenosis; Nonrheumatic mitral valve stenosis; Pericardial effusion; Histoplasmosis Start: 01-02-2024 End: 01-02-2024 ambulatory LILI ROCHE Facility:[facility] Start: 12-27-2023 End: 12-27-2023 ambulatory CLAUDINE DURÁN Facility:[facility] Start: 12-27-2023 End: 12-27-2023 Anticoagulant drug monitoring [facility] Work Phone: [facility] [place] Comment on above: Personal history of DVT (deep vein thrombosis) (Primary Dx) Start: 12-20-2023 End: 12-20-2023 ambulatory Rosa Wallace RN Work Phone: [facility] Comment on above: community monitoring outreach (engagement) Start: 12-19-2023 End: 12-20-2023 Telephone encounter Claudine Durán MD Work Phone: [facility] [place] Start: 12-19-2023 End: 12-19-2023 ambulatory Rosa Wallace RN Work Phone: [facility] Comment on above: community monitoring outreach (engagement) Start: 12-18-2023 End: 12-18-2023 ambulatory GENO HART Facility:[facility] Start: 12-18-2023 End: 12-18-2023 Patient encounter procedure Geno Hart MD Work Phone: [facility] [place] [facility] of Infectious Disease Comment on above: Disseminated histopl asmosis (Primary Dx); Bronchiectasis without complication (HCC); COPD without exacerbation (HCC); Rheumatoid arthritis with positive rheumatoid factor, involving unspecified site (HCC); History of immunosuppressive therapy; History of penicillin allergy; Encounter for long-term (current) use of antibiotics; Counseling, unspecified; Disseminated histoplasmosis Start: 12-13-2023 End: 12-13-2023 ambulatory CLAUDINE DURÁN Facility:[facility] Start: 12-13-2023 End: 12-13-2023 [facility] Work [facility]: [facility] [place] Comment on above: Personal history of DVT (deep vein thrombosis) (Primary Dx) Start: 12-11-2023 End: 12-12-2023 Refill Twyla Cuevas APRN.CNP Work Phone: Internal Medicine [place] Comment on above: Refill Request Start: 12-09-2023 End: 12-11-2023 Refill Claudine Durán MD Work Phone: [facility] [place] Comment on above: Refill Request Start: 11-29-2023 End: 11-29-2023 ambulatory CLAUDINE DURÁN Facility:[facility] Start: 11-29-2023 End: 11-29-2023 Anticoagulant drug monitoring [facility] [place] Comment on above: Personal history of DVT (deep vein thrombosis) (Primary Dx) Start: 11-26-2023 End: 11-26-2023 Telephone encounter Geno Hart MD Work Phone: [facility] [place] [facility] Infectious Disease Comment on above: Patient Question Start: 11-15-2023 End: 11-15-2023 Telephone encounter Claudine Durán MD [facility] [place] Comment on above: Orders (poc protime) Start: 11-15-2023 End: 11-15-2023 ambulatory CLAUDINE DURÁN Facility:[facility] Start: 11-15-2023 End: 11-15-2023 [facility] Work Phone: [facility] [place] Comment on above: Personal history of DVT (deep vein thrombosis) (Primary Dx) Start: 11-08-2023 End: 11-08-2023 ambulatory CLAUDINE DURÁN Facility:[facility] Start: 11-08-2023 End: 11-08-2023 Anticoagulant drug monitoring [facility] Work Phone: [facility] [facility] [place] Comment on above: Personal history of DVT (deep vein thrombosis) (Primary Dx) Start: 11-03-2023 End: 11-06-2023 Refill Jimbo Swanson APRN.SALES INCENTIVE ANALYST Work Phone: [facility] [place] Comment on above: Refill Request Start: 11-02-2023 End: 11-02-2023 E-mail encounter from caregiver Bibi Alegria APRN.SUSTAINABILITY CONSULTANT Work Phone: Cardiology Start: 11-02-2023 End: 11-02-2023 Follow-up encounter Bibi Alegria APRN.SUSTAINABILITY CONSULTANT Work Phone: Cardiology Comment on above: Valve Follow Up Start: 10-30-2023 End: 10-30-2023 Telephone encounter William Messina DO Work Phone: Cardiology Comment on above: Forms Start: 10-30-2023 ambulatory Mathew Orellana Facility :[facility] Start: 10-25-2023 End: 10-25-2023 ambulatory CLAUDINE Adam [facility] Facility:[facility] Start: 10-25-2023 End: 10-25-2023 Anticoagulant drug monitoring [facility] Work Phone: [facility] Comment on above: Personal history of DVT (deep vein thrombosis) (Primary Dx) Start: 10-20-2023 End: 10-25-2023 Refill Jimbo Swanson APRN.SALES INCENTIVE ANALYST Work Phone: [facility] [place] Comment on above: Refill Request Start: 10-19-2023 End: 10-19-2023 ambulatory [facility] Facility:[facility] Start: 10-19-2023 End: 10-19-2023 Anticoagulant drug monitoring [facility] Work Phone: [facility] Comment on above: Personal history of DVT (deep vein thrombosis) (Primary Dx) Start: 10-18-2023 End: 10-18-2023 ambulatory BIBI ALEGRIA Facility:[facility] Start: 10-18-2023 End: 10-18-2023 Patient encounter procedure Bibi Alegria APRN.SUSTAINABILITY CONSULTANT Work Phone: Cardiology Comment on above: Aortic stenosis with bicuspid valve (Primary Dx); Pericardial effusion; Essential hypertension; Chronic heart failure with preserved ejection fraction (HFpEF) ([facility]); Mitral valve stenosis, non-rheumatic; Nonrheumatic tricuspid valve regurgitation Start: 10-17-2023 End: 10-17-2023 ambulatory Ilda Miller RN Work Phone: [employer] [employer] [facility] Comment on above: Community Monitoring Outreach (F/U engagement CDM Home Monitoring) Start: 10-11-2023 End: 10-11-2023 ambulatory JIMBO SWANSON Facility:[facility] Start: 10-11-2023 End: 10-11-2023 Office outpatient visit 25 minutes Jimbo Swanson APRN.SALES INCENTIVE ANALYST Work Phone: Internal [facility] [place] Comment on above: Aortic valve stenosi s, etiology of cardiac valve disease unspecified (Primary Dx); Mitral valve stenosis, unspecified etiology; Pericardial effusion; Gastrointestinal hemorrhage, unspecified gastrointestinal hemorrhage type; Rheumatoid arthritis with positive rheumatoid factor, involving unspecified site (HCC); Edema, unspecified type; Blood loss anemia Start: 09-28-2023 End: 09-28-2023 ambulatory WILLIAM MESSINA Facility:[facility] Start: 09-27-2023 End: 09-27-2023 Anticoagulant drug monitoring [facility] Work Phone: [facility] [place] Comment on above: Personal history of DVT (deep vein thrombosis) (Primary Dx) Refill Request Start: 09-27-2023 Refill Twyla Cuevas APRN.CNP Work Phone: [facility] [place] Comment on above: Med Change Request Start: 09-27-2023 End: 09-27-2023 ambulatory [facility] Facility:[facility] Start: 09-21-2023 End: 09-21-2023 Anticoagulant drug monitoring [facility] Work Phone: [facility] [place] Comment on above: Personal history of DVT (deep vein thrombosis) (Primary Dx) Start: 09-21-2023 End: 09-21-2023 ambulatory [facility] Facility:[facility] Start: 09-04-2023 Telephone encounter Twyla de APRN.CNP Work Phone: [facility] [place] Comment on above: Results Start: 08-31-2023 ambulatory Ilda Miller RN Work Phone: [employer] Comment on above: Community Monitoring Outreach (F/U engagement CD Home Monitoring) Start: 08-30-2023 End: 08-30-2023 Anticoagulant drug monitoring [facility] Work Phone: [facility] [place] Comment on above: Personal history of DVT (deep vein thrombosis) (Primary Dx) Refill Request Start: 08-30-2023 End: 08-30-2023 Subsequent hospital visit by physician [facility] ([facility]) Work Phone: [facility] Comment on above: Disseminated histopl asmosis [B39.9] Start: 08-30-2023 End: 08-30-2023 ambulatory GENO HART Facility:[facility] Start: 08-28-2023 End: 08-28-2023 Patient encounter procedure Geno Hart MD Work Phone: [facility] [place] [facility] Comment on above: Disseminated histopl asmosis (Primary Dx); Bronchiectasis without complication (HCC); COPD without exacerbation (HCC); Rheumatoid arthritis with positive rheumatoid factor, involving unspecified site (HCC); History of immunosuppressive therapy; History of penicillin allergy; Encounter for long-term (current) use of antibiotics; Counseling, unspecified; H/O: GI bleed Start: 08-27-2023 Telephone encounter William Messina DO Work Phone: Cardiology Comment on above: Appointment Start: 08-27-2023 End: 08-27-2023 Patient encounter procedure William Messina DO Work Phone: Cardiology Comment on above: Nonrheumatic aortic valve stenosis (Primary Dx); Mitral valve stenosis, non-rheumatic; Essential hypertension; Pericardial effusion (noninflammatory); Leg edema; 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 Start: 08-24-2023 Telephone encounter William Messina DO Work Phone: Cardiology Start: 08-22-2023 End: 08-22-2023 Office outpatient visit 25 minutes Claudine Durán MD Work Phone: [facility] [place] Comment on above: Anemia, unspecified type (Primary Dx); Bilateral lower extremity edema; Chronic anticoagulation; Moderate to severe aortic stenosis; Disseminated histoplasmosis; Nodule of lower lobe of left lung; Encounter for long-term current use of medication Start: 08-22-2023 End: 08-22-2023 Anticoagulant drug monitoring [facility] [employer] Work Phone: [facility] [place] Comment on above: Personal history of DVT (deep vein thrombosis) (Primary Dx) Start: 08-09-2023 End: 08-09-2023 Anticoagulant drug monitoring [facility] Work Phone: [facility] [place] Comment on above: Personal history of DVT (deep vein thrombosis) (Primary Dx) Start: 08-08-2023 End: 08-08-2023 Patient encounter procedure Twyla Cuevas APRN.SUSTAINABILITY CONSULTANT Work Phone: [facility] [place] Comment on above: Rheumatoid arthritis involving multiple sites with positive rheumatoid factor (HCC) (Primary Dx); Edema, unspecified type; Encounter for therapeutic drug monitoring Start: 08-07-2023 Refill Claudine tavares MD Work Phone: [facility] [place] Comment on above: Refill Request Start: 07-31-2023 Refill Claudine tavares MD Work Phone: [facility] [place] Comment on above: Refill Request Start: 07-28-2023 Refill Jimbo Swanson APRN.SALES INCENTIVE ANALYST Work Phone: [facility] [place] Comment on above: Refill Request Start: 07-26-2023 End: 07-26-2023 Anticoagulant drug monitoring [facility] Work Phone: [facility] [place] Comment on above: 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 (Primary Dx) Start: 07-20-2023 Telephone encounter Claudine valderrama MD Work Phone: [facility] [place] Comment on above: Medication Problem Start: 07-17-2023 Refill Claudine tavares MD Work Phone: [facility] [place] Comment on above: Refill Request Right knee pain, uns pecified chronicity (Primary Dx) Start: 07-12-2023 Telephone encounter Jimbo sanchez APRN.SALES INCENTIVE ANALYST Work Phone: [facility] [place] Comment on above: Results Start: 07-12-2023 End: 07-12-2023 Anticoagulant drug monitoring [facility] Work Phone: [facility] [place] Comment on above: Personal history of DVT (deep vein thrombosis) (Primary Dx) Start: 07-10-2023 End: 07-10-2023 Office outpatient visit 25 minutes Jimbo Swanson APRN.SALES INCENTIVE ANALYST Work Phone: [facility] [place] Comment on above: Acute pain of right knee (Primary Dx); Chronic anticoagulation; Hip pain, acute, left; Pain and swelling of right lower leg Start: 07-05-2023 ambulatory Ilda Miller RN Work Phone: [employer] [employer] [facility] Comment on above: Community Monitoring Outreach (F/U engagement CDM Home Monitoring) Start: 07-05-2023 End: 07-05-2023 Anticoagulant drug monitoring [facility] Work Phone: [facility] [place] Comment on above: Personal history of DVT (deep vein thrombosis) (Primary Dx) Start: 07-01-2023 Refill Twyla Cuevas APRN.SUSTAINABILITY CONSULTANT Work Phone: [facility] [place] Comment on above: Refill Request Start: 06-07-2023 Refill Claudine tavares MD Work Phone: [address] [place] [address] Comment on above: Refill Request Start: 06-05-2023 End: 06-05-2023 Office outpatient visit 40 minutes Claudine Durán MD Work Phone: [facility] [place] Comment on above: Anemia, unspecified type (Primary Dx); Elevated LFTs; COPD without exacerbation (HCC); Essential hypertension; Cough due to bronchospasm; Chronic anticoagulation; Encounter for long-term current use of medication; Gastric ulcer with hemorrhage, unspecified chronicity Start: 05-31-2023 End: 05-31-[address] Claudine Durán Work Phone: [facility] Work Phone: Start: 05-31-2023 End: 05-31-2023 Dr. Claudine Durán Work Phone: [facility] Start: 05-29-2023 End: 05-29-[address] Claudine Durán Work Phone: [facility] Work Phone: Start: 05-29-2023 End: 05-29-2023 Dr. Claudine Durán Work Phone: [facility] Start: 05-28-2023 End: 05-28-[address] Claudine Durán Work Phone: [facility] Work Phone: Start: 05-28-2023 End: 05-28-2023 Dr. Claudine Durán Work Phone: [facility] Start: 05-24-2023 End: 05-24-[address] Claudine Durán Work Phone: [facility] Work Phone: Start: 05-24-2023 End: 05-24-2023 Dr. Claudine Durán Work Phone: [facility] Start: 05-21-2023 End: 05-21-[address] Claudine Durán Work Phone: [facility] Work Phone: Start: 05-21-2023 End: 05-21-2023 Dr. Claudine Durán Work Phone: [facility] Start: 05-17-2023 End: 05-17-[address] Claudine Durán Work Phone: [facility] Work Phone: Start: 05-17-2023 End: 05-17-2023 Dr. Claudine Durán Work Phone: [facility] Start: 05-15-2023 End: 05-15-[address] Claudine Durán Work Phone: [facility] Work Phone: Start: 05-15-2023 End: 05-15-2023 Dr. Claudine Durán Work Phone: [facility] Start: 05-14-2023 End: 05-14-[address] Claudine Durán Work Phone: [facility] Work Phone: Start: 05-14-[address] Claudine hurt Work Phone: [facility] Start: 05-14-2023 End: 05-14-2023 Dr. Claudine Durán Work Phone: [facility] Start: 05-10-2023 End: 05-10-[address] Claudine Durán Work Phone: [facility] Work Phone: Start: 05-10-[address] Claudine hurt Work Phone: [facility] Start: 05-10-2023 End: 05-10-2023 Dr. Claudine Durán Work Phone: [facility] Start: 05-07-2023 End: 05-07-[address] Claudine Durán Work Phone: [facility] Work Phone: Start: 05-07-2023 End: 05-07-[address] Claudine Durán Work Phone: [facility] Start: 05-07-2023 End: 05-07-2023 Dr. Claudine Durán Work Phone: [facility] Start: 05-03-2023 End: 05-03-[address] Claudine Durán Work Phone: [facility] Work Phone: Start: 05-03-[address] Claudine hurt Work Phone: [facility] Start: 05-03-2023 End: 05-03-2023 Dr. Claudine Durán Work Phone: [facility] Start: 05-01-2023 End: 05-01-2023 Dr. Claudine Durán Work Phone: [facility] Work Phone: Start: 05-01-2023 End: 05-01-[address] Claudine Durán Work Phone: [facility] Work Phone: Start: 05-01-2023 End: 05-01-[address] Claudine Durán Work Phone: [facility] Start: 05-01-[address] Claudine hurt Work Phone: [facility] Start: 05-01-2023 End: 05-01-2023 Dr. Claudine Durán Work Phone: [facility] Start: 04-30-2023 Telephone encounter Claudine valderrama MD Work Phone: [facility] [place] Comment on above: Clinical Update Start: 04-30-2023 End: 04-30-2023 Dr. Claudine Durán Work Phone: [facility] Work Phone: Start: 04-10-2023 Non-patient / Non-visit Dr. Ann Durán Work Phone: [facility] Start: 04-10-2023 Dr. Claudine avila Work Phone: [facility] Start: 04-10-2023 End: 04-10-[address] Claudine Durán Work Phone: [facility] Work Phone: Start: 04-10-2023 End: 04-10-[address] Claudine Durán [facility] Work Phone: Start: 04-10-2023 End: 04-10-2023 Dr. Claudine Durán Work Phone: [facility] Work Phone: Start: 04-09-2023 Non-patient / Non-visit Dr. Ann Durán Work Phone: [facility] Work Phone: Start: 04-09-2023 Dr. Claudine avila Work Phone: [facility] Work Phone: Start: 04-05-2023 End: 04-30-2023 Evaluation and management of inpatient Dr. Claudine Durán Work Phone: [facility] Start: 04-05-2023 End: 04-30-2023 Dr. Claudine Durán [facility] Start: 04-05-2023 Non-patient / Non-visit Dr. Ann Durán Work Phone: [facility] Work Phone: Start: 04-05-2023 Dr. Claudine avila Work Phone: [facility] Work Phone: Start: 04-04-2023 Non-patient / Non-visit Dr. Ann Durán Work Phone: [facility] Work Phone: Start: 04-04-2023 Dr. Claudine avila Work Phone: [facility] Work Phone: Start: 04-04-2023 Non-patient / Non-visit Dr. Ann Durán Work Phone: [facility] Start: 04-04-2023 Dr. Claudine avila Work Phone: [facility] Start: 04-03-2023 Non-patient / Non-visit Dr. Ann Durán Work Phone: [facility] Start: 04-03-2023 Dr. Claudine avila Work Phone: [facility] Start: 04-02-2023 Non-patient / Non-visit Dr. Ann Durán Work Phone: [facility] Work Phone: Start: 04-02-2023 Dr. Claudine avila Work Phone: [facility] Work Phone: Start: 04-02-2023 Non-patient / Non-visit Dr. Ann Durán Work Phone: [facility] Start: 04-02-2023 Dr. Claudine avila Work Phone: [facility] Start: 04-02-2023 Non-patient / Non-visit Dr. Ann Durán Work Phone: [facility] Start: 04-02-2023 Dr. Claudine avila Work Phone: [facility] Start: 04-02-2023 Non-patient / Non-visit Dr. Ann Durán Work Phone: [facility] Start: 04-02-2023 Dr. Claudine avila Work Phone: [facility] Start: 04-01-2023 Non-patient / Non-visit Dr. Ann Durán Work Phone: [facility] Start: 04-01-2023 [facility] Start: 04-01-2023 Non-patient / Non-visit Dr. Ann Durán Work Phone: [facility] Work Phone: Start: 04-01-2023 Dr. Claudine avila Work Phone: [facility] Work Phone: Start: 03-31-2023 End: 04-05-2023 Evaluation and management of inpatient Dr. Claudine Durán Work Phone: [facility] Work Phone: Start: 03-31-2023 End: 04-05-2023 Dr. Cluadine Durán Work Phone: [facility] Unit Work Phone: Start: 03-28-2023 End: 03-28-2023 Emergency department patient visit Dr. Claudine Durán [facility] Work Phone: Start: 03-28-2023 End: 03-28-2023 Dr. Claudine Durán Work Phone: [facility] Work Phone: Start: 03-27-2023 Non-patient / Non-visit Dr. Ann Durán Work Phone: [facility] Work Phone: Start: 03-27-2023 Dr. Claudine avila Work Phone: [facility] Work Phone: Start: 03-27-2023 E-mail encounter fro m caregiver William Messina DO Work Phone: [facility] Start: 03-27-2023 Patient encounter procedure William Messina DO Work Phone: Cardiology Comment on above: Appointment Start: 03-26-2023 End: 03-27-2023 Evaluation and management of inpatient [facility] Work Phone: Start: 03-26-2023 observation encounter [facility] Work Phone: Start: 03-26-2023 End: 03-27-2023 Dr. Claudine Durán Work Phone: [facility] Work Phone: Start: 03-23-2023 Telephone encounter Rachelle Leonard APRN.SUSTAINABILITY CONSULTANT Work Phone: [facility] Comment on above: Appointment Start: 03-19-2023 End: 03-25-2023 Evaluation and management of inpatient CLAUDINE DURÁN Facility:[facility] Start: 03-19-2023 End: 03-19-2023 Emergency department patient visit [facility] Work Phone: Start: 03-19-2023 End: 03-19-2023 Dr. Claudine Durán Work Phone: [facility] Work Phone: Start: 03-15-2023 ambulatory Claudine tavares MD Work Phone: [facility] [place] Comment on above: histoplasmosis Start: 02-27-2023 Telephone encounter Claudine valderrama MD Work Phone: [facility] [place] Comment on above: Results (worsening l iver enzymes) Start: 02-07-2023 End: 02-07-2023 Subsequent hospital visit by physician [facility] Work Phone: Radiology Comment on above: Acute cough [R05.1] Start: 02-07-2023 End: 02-07-2023 Patient encounter procedure Adri Zaragoza CONNIE.SUSTAINABILITY CONSULTANT Work Phone: [place] [facility] Comment on above: Acute cough (Primary Dx) Start: 02-02-2023 End: 02-02-2023 [facility] Work Phone: [facility] [place] Comment on above: Personal history of DVT (deep vein thrombosis) (Primary Dx) Start: 01-24-2023 Refill Teresa barboza MD Work Phone: Pulmonary Medicine Comment on above: Refill Request Start: 01-17-2023 End: 01-17-2023 [facility] Work Phone: [facility] [place] Comment on above: Embolism and thrombo sis (HCC) (Primary Dx) Start: 01-10-2023 End: 01-10-2023 Anticoagulant drug monitoring [facility] Work Phone: [facility] [place] Comment on above: Personal history of DVT (deep vein thrombosis) (Primary Dx) Start: 01-04-2023 End: 01-04-2023 Office outpatient visit 15 minutes Jimbo Swanson CONNIE.SALES INCENTIVE ANALYST Work Phone: [facility] [place] Comment on above: Encounter for immuni zation (Primary Dx) Start: 01-04-2023 End: 01-04-2023 Anticoagulant drug monitoring [facility] Work Phone: [facility] [place] Comment on above: Embolism and thrombo sis (HCC) (Primary Dx) Start: 12-20-2022 Refill Claudine tavares MD Work Phone: [facility] [place] Comment on above: Refill Request Start: 12-14-2022 End: 12-14-2022 Anticoagulant drug monitoring [facility] Work Phone: [facility] [place] Comment on above: Embolism and thrombo sis (HCC) (Primary Dx) Start: 12-07-2022 End: 12-07-2022 Anticoagulant drug monitoring [facility] Work Phone: [facility] [place] Comment on above: Embolism and thrombo sis (HCC) (Primary Dx) Start: 11-20-2022 Documentation procedure Mammog adrian Coordinator [facility] Start: 11-20-2022 Letter encounter Mammography Coordinator [facility] Start: 11-17-2022 End: 11-17-2022 Subsequent hospital visit by physician Screen Mammo [facility] M[facility] Comment on above: Encounter for screen ing mammogram for breast cancer [Z12.31] Start: 11-09-2022 Telephone encounter Claudine valderrama MD Work Phone: [facility] [place] Comment on above: Orders (protime) Start: 11-09-2022 End: 11-09-2022 [facility] Work Phone: [facility] [place] Comment on above: Embolism and thrombo sis (HCC) (Primary Dx) Start: 11-09-2022 End: 11-09-2022 Patient encounter procedure Ron Veras MD Work Phone: Orthopaedics Comment on above: DDD (degenerative di sc disease), lumbar (Primary Dx); Hip pain, acute, left; Age-related osteoporosis without current pathological fracture Start: 11-01-2022 Telephone encounter Claudine valderrama MD Work Phone: [facility] [place] Comment on above: Medication Problem Start: 10-31-2022 ambulatory Ashly Shay RN NURSE [facility] Comment on above: Medication Request ( Warfarin) Refill Request Start: 10-27-2022 End: 10-27-2022 Office outpatient visit 25 minutes Jimbo Swanson APRN.CNS Work Phone: [facility] [place] Comment on above: Essential hypertensi on (Primary [...] Start: 10-26-2022 End: 10-26-2022 [facility] Work [facility] [place] Comment on above: Personal history of DVT (deep vein thrombosis) (Primary Dx) Start: 10-12-2022 End: 10-12-2022 [facility] Work Phone: [facility] [place] Comment on above: FPC current us e of anticoagulant therapy (Primary Dx) Start: 10-06-2022 Refill Jimbo Swanson APRN.SALES INCENTIVE ANALYST Work Phone: [facility] [place] Comment on above: Refill Request Start: 09-25-2022 Telephone encounter Rachelle Schulte APRN.SUSTAINABILITY CONSULTANT Work Phone: Cardiology Comment on above: Results Start: 09-14-2022 Telephone encounter Claudine valderrama MD Work Phone: [facility] [place] Comment on above: Anticoagulation Start: 09-07-2022 End: 09-07-2022 Anticoagulant drug monitoring [facility] Work Phone: [facility] [place] Comment on above: Personal history of DVT (deep vein thrombosis) (Primary Dx) Start: 08-29-2022 End: 08-29-2022 Office outpatient visit 15 minutes Rachelle Schulte APRN.SUSTAINABILITY CONSULTANT Work Phone: Cardiology Comment on above: Aortic stenosis with bicuspid valve (Primary Dx); Essential hypertension; History of recurrent deep vein thrombosis (DVT) Start: 08-15-2022 Refill [facility] Pulmonary Medicine Comment on above: Refill Request Start: 08-11-2022 Telephone encounter Claudine valderrama MD Work Phone: [facility] [place] Comment on above: Patient Update Start: 07-24-2022 Orders Only Florecne Collins MD Work Phone: Pulmonary Medicine Comment on above: Lung nodules (Primar y Dx); Bronchiectasis without complication (HCC) Start: 07-20-2022 End: 07-20-2022 Patient encounter procedure Florence Collins MD Work Phone: Pulmonary Medicine Comment on above: Lung nodules (Primar y Dx); Bronchiectasis without complication (HCC); Rheumatoid arthritis involving multiple sites with positive rheumatoid factor (HCC) Start: 07-20-2022 End: 07-20-2022 Subsequent hospital visit by physician [facility] ([facility]) Work Phone: Cat Scan Comment on above: Lung nodules [R91.8] Start: 06-29-2022 End: 06-29-2022 Anticoagulant drug monitoring [facility] Work Phone: [facility] [place] Comment on above: Personal history of DVT (deep vein thrombosis) (Primary Dx) Start: 05-31-2022 ambulatory [facility] Provider [employer] Comment on above: Home Monitoring Ques tionnaire Reminder + Happy Belated Birthday! Start: 05-31-2022 E-mail encounter abhijeet m caregiver [facility] Provider [facility] Start: 05-23-2022 Telephone encounter Claudine valderrama MD Work Phone: [facility] [place] Comment on above: Clearance for surger y Start: 05-04-2022 End: 05-04-2022 Anticoagulant drug monitoring [facility] Work Phone: [facility] [place] Comment on above: Personal history of DVT (deep vein thrombosis) (Primary Dx) Start: 04-21-2022 ambulatory [facility] Provider [employer] Comment on above: Home Monitoring Prog jelani Reminder Start: 04-21-2022 E-mail encounter fro m caregiver [facility] Provider [facility] Start: 04-06-2022 End: 04-06-2022 Anticoagulant drug monitoring [facility] Work Phone: [facility] [place] Comment on above: Personal history of DVT (deep vein thrombosis) (Primary Dx) Start: 03-30-2022 End: 03-30-2022 Anticoagulant drug monitoring [facility] Work Phone: [facility] [place] Comment on above: Personal history of DVT (deep vein thrombosis) (Primary Dx) Start: 03-13-2022 End: 03-13-2022 Office outpatient visit 25 minutes Claudine Durán MD Work Phone: Internal Medicine [place] Comment on above: Essential hypertensi on (Primary Dx); Chronic anticoagulation; Aortic stenosis with bicuspid valve; Rheumatoid arthritis involving multiple sites with positive rheumatoid factor (HCC); COPD without exacerbation (HCC); Bronchiectasis without complication (HCC); Acquired hammertoe of left foot; Early dry stage nonexudative age-related macular degeneration of both eyes Start: 02-24-2022 ambulatory [facility] Provider [employer] Comment on above: [employer] Home Monitor ing Program Reminder Start: 02-24-2022 E-mail encounter fro m caregiver [facility] Provider [facility] [place] [place] Start: 02-17-2022 ambulatory [facility] Provider [employer] Comment on above: [employer] Home Monitor ing Program Reminder Start: 02-17-2022 E-mail encounter fro m caregiver [facility] Provider [facility] [place] Start: 02-02-2022 End: 02-02-2022 Anticoagulant drug monitoring [facility] [employer] Work Phone: Coumadin [facility] [place] Comment on above: Personal history of DVT (deep vein thrombosis) (Primary Dx) Start: 01-17-2022 ambulatory [facility] Provider [employer] Comment on above: [employer] Home Monitor ing Program Reminder Refill Request Start: 01-17-2022 E-mail encounter fro m caregiver [facility] Provider [facility] Start: 01-10-2022 Refill Jimbo Swanson APRN.SALES INCENTIVE ANALYST Work Phone: Internal Medicine [place] Comment on above: Refill Request Start: 01-05-2022 End: 01-05-2022 Anticoagulant drug monitoring [facility] [employer] Work Phone: Coumadin [facility] [place] Comment on above: Personal history of DVT (deep vein thrombosis) (Primary Dx) Start: 12-31-2021 End: 12-31-2021 Subsequent hospital visit by physician [facility] [place] Work Phone: Radiology Comment on above: Hip pain, acute, lef t [M25.552] Start: 12-22-2021 End: 12-22-2021 Anticoagulant drug monitoring [facility] Work Phone: Coumadin [facility] [place] Comment on above: Personal history of DVT (deep vein thrombosis) (Primary Dx) Start: 11-29-2021 ambulatory Jimbo Swanson LEATHER CARTRIDGE BELT MAKER.SALES INCENTIVE ANALYST Work Phone: Internal Medicine [place] Comment on above: Blood pressure Start: 11-29-2021 [...] End: 11-10-2021 Patient encounter procedure Jimbo Swanson APRN.SALES INCENTIVE ANALYST Work Phone: Internal Medicine [place] Comment on above: Essential hypertensi on (Primary Dx); Chronic obstructive pulmonary disease, unspecified COPD type (HCC); Encounter for immunization; Gastroesophageal reflux disease without esophagitis; Bronchiectasis without complication (HCC); COPD without exacerbation (HCC); Aortic stenosis with bicuspid valve Start: 11-08-2021 Refill Claudine tavares MD Work Phone: Internal Medicine [place] Comment on above: Refill Request Start: 11-01-2021 End: 11-01-2021 Patient encounter procedure Chacho Aspen Work Phone: Podiatry Comment on above: Ulcer of toe of left foot, limited to breakdown of skin (HCC) (Primary Dx); Hammer toe of left foot; Hallux rigidus of left foot Start: 10-27-2021 Telephone encounter Claudine valderrama MD Work Phone: [facility] [place] Comment on above: Orders (protime) Start: 10-27-2021 End: 10-27-2021 Anticoagulant drug monitoring [facility] Work Phone: [facility] [place] Comment on above: Personal history of DVT (deep vein thrombosis) (Primary Dx) Start: 10-18-2021 End: 10-18-2021 Patient encounter procedure Chacho Louise Work Phone: Podiatry Comment on above: Ulcer of toe of left foot, limited to breakdown of skin (HCC) (Primary Dx); Hammer toe of left foot; Onychodystrophy Refill Request Start: 10-18-2021 End: 10-18-2021 Subsequent hospital visit by physician Robbie [facility] [place] [employer] Work Phone: Radiology Comment on above: Ulcer of toe of left foot, limited to breakdown of skin (HCC) [L97.521] Start: 10-12-2021 End: 10-12-2021 Subsequent hospital visit by physician [facility] [employer] Work Phone: Radiology Comment on above: Abnormal mammogram [ R92.8] Start: 09-29-2021 End: 09-29-2021 Anticoagulant drug monitoring [facility] Work Phone: Coumadin [facility] [place] Comment on above: Personal history of DVT (deep vein thrombosis) (Primary Dx) Start: 09-20-2021 End: 09-20-2021 Patient encounter procedure Jimbo Swanson APRN.SALES INCENTIVE ANALYST Work Phone: Internal Medicine [place] Comment on above: Toe infection (Prima ry Dx); Sinobronchitis Start: 09-05-2021 Documentation procedure Mammog adrian Coordinator [facility] Start: 09-05-2021 Letter encounter Mammography Coordinator [facility] Department Start: 09-05-2021 End: 09-05-2021 Subsequent hospital visit by physician [facility] Comment on above: Encounter for screen ing mammogram for breast cancer [Z12.31] Start: 08-23-2021 End: 08-23-2021 Anticoagulant drug monitoring [facility] Work Phone: Coumadin [facility] [place] Comment on above: Personal history of DVT (deep vein thrombosis) (Primary Dx) Start: 08-12-2021 End: 08-12-2021 Patient encounter procedure William Messina DO Work Phone: Cardiology Comment on above: Aortic stenosis with bicuspid valve (Primary Dx); Essential hypertension Start: 07-28-2021 Refill Mirian Andujar MD Work Phone: Pulmonary Medicine Comment on above: Refill Request (symb icort ) Start: 07-25-2021 End: 07-25-2021 Anticoagulant drug monitoring [facility] Work Phone: Coumadin [facility] [place] Comment on above: Personal history of DVT (deep vein thrombosis) (Primary Dx) Start: 07-11-2021 End: 07-11-2021 Office outpatient visit 25 minutes Claudine Durán MD Work Phone: Internal Medicine [place] Comment on above: Gastroesophageal ref lux disease without esophagitis (Primary Dx); Other viral warts; Elevated LDL cholesterol level; Essential hypertension; Need for COVID-19 vaccine; COPD without exacerbation (HCC); Bronchiectasis without complication (HCC) Start: 07-07-2021 End: 07-07-2021 Patient encounter procedure [facility], Specimen Start: 06-29-2021 ambulatory Gold Coy RN [employer] Comment on above: Community Monitoring Outreach (COPD CDM Outreach) Start: 06-09-2021 End: 06-09-2021 Anticoagulant drug monitoring [facility] Work Phone: [facility] Comment on above: Embolism and thrombo sis (HCC) Start: 06-04-2021 Refill Claudine tavares MD Work Phone: Internal Medicine [place] Comment on above: Refill Request Start: 2021 End: 2021 Patient encounter procedure Mirian Andujar MD Work Phone: Pulmonary Medicine Comment on above: Moderate COPD (chron ic obstructive pulmonary disease) (HCC) (Primary Dx); Bronchiectasis without complication (HCC); Centrilobular emphysema (HCC) Start: 05-26-2021 End: 05-26-2021 [facility] Comment on above: Embolism and thrombo sis (HCC) Start: 05-20-2021 ambulatory Nara (Pss) [facility] [place] Comment on above: Population Health Na vigation Outreach ([employer] Gaps) Start: 03-14-2021 End: 03-14-2021 Patient encounter procedure Claudine Durán MD Work Phone: Internal Medicine [place] Comment on above: Essential hypertensi on (Primary Dx); History of COVID-19; Cough; Bronchiectasis without complication (HCC); Gastroesophageal reflux disease without esophagitis; Aortic stenosis with bicuspid valve; Rheumatoid arthritis involving multiple sites with positive rheumatoid factor (HCC) Start: 02-28-2018 Patient encounter procedure [facility] Start: 10-02-2014 End: 10-03-2014 Ambulatory Mykel Santamaria Facility:[facility] Procedures Date Procedure Procedure Detail Performing Clinician Start: 08-24-[address] Claudine Durán MD Work Phone: Start: 08-23-2024 CT of head without contrast Dr. Claudine valderrama MD Work Phone: Start: 08-23-[address] Claudine Durán MD Work Phone: Start: 08-23-2024 Plain x-ray of wrist Dr. Claudine Durán MD Work Phone: Start: 06-20-2024 Evaluation of diagnostic study results Dr. Claudine Durán MD Work Phone: Start: 04-30-2024 Radiologic exam chest 2 views Leandra mckeon LEATHER [employer] MAKER.SALES INCENTIVE ANALYST Work Phone: Start: 03-25-2024 Rp loclzj mary spect w/ct 1 area 1 day imaging Monica Aguila LEATHER [employer]TRID[employer]T MAKER.SUSTAINABILITY CONSULTANT Work Phone: Start: 03-25-2024 Spmtry w/vc expiratory milton w/wo mxml vol vntj Monica Aguila LEATHER [employer]T MAKER.SUSTAINABILITY CONSULTANT Work Phone: Start: 03-21-2024 Radiologic exam chest 2 views Monica Aguila LEATHER [employer]TRID[employer]T MAKER.SUSTAINABILITY CONSULTANT Work Phone: Start: 03-21-2024 Ct angiography chest w/contrast/noncontrast Monica Aguila LEATHER [employer]T MAKER.SUSTAINABILITY CONSULTANT Work Phone: Start: 03-21-2024 Ct angio abd&plvis cntrst mtrl w/wo cntrst img Monica Aguila LEATHER CARTRIDGE BELT MAKERRcSUSTAINABILITY CONSULTANT Work Phone: Start: 03-21-2024 Creatinine [Mass/volume] in [...] Durán Work Phone: Start: 04-02-[address] Claudnie banks Work Phone: Start: 03-31-2023 Radiography of [...] INFLUENZA A/B & RSV NAAT, ROUTINE Adri Loftonestrella LEATHER [employer]ID[employer]T MAKER.SUSTAINABILITY CONSULTANT Work Phone: Start: 02-07-2023 Radiologic exam chest 2 views Adri Lofton estrella LEATHER CARTRIDGE [employer]T MAKER.SUSTAINABILITY CONSULTANT Work Phone: Start: 01-04-2023 PFIZER-BIONTECH COVID-19 VACCINE ( SEASON) AGE 12+ YR Jimbo Swanson LEATHER CARTRID[employer]T MAKER.SALES INCENTIVE ANALYST Work Phone: Start: 01-04-2023 Prothrombin time Jimbo Swanson LEATHER [employer] MAKER.SALES INCENTIVE ANALYST Work Phone: Start: 11-17-2022 Screening digital breast tomosynthesis bi [facility] LEATHER CARTRIDGE BELT MAKER.SALES INCENTIVE ANALYST Work Phone: Start: 10-27-2022 INFLUENZA VACCINE, PRSV FREE, AGE 65+ YR, HIGH DOSE, QUADRIVALENT (FLUZONE HIGH-DOSE) Jimbo Swanson LEATHER [employer]T MAKER.SALES INCENTIVE ANALYST Work Phone: Start: 08-29-2022 Ecg routine ecg w/least 12 lds i&r only [facility] Provider Start: 07-20-2022 Ct thorax w/o contrast material Meche Collins MD Work Phone: Start: 12-31-2021 Radex hip unilateral with pelvis 2-3 views Ernie Belcher LEATHER [employer]ID[employer]T MAKER.SUSTAINABILITY CONSULTANT Work Phone: Start: 11-10-2021 INFLUENZA SEASONAL QUADRIVALENT HIGH DOSE AGE 65+ [facility] LEATHER CARTRIDGE BELT MAKER.SALES INCENTIVE ANALYST Work Phone: Start: 11-10-2021 PFIZER-B[employer] COVID-19 BIVALENT BOOSTER VACCINE, AGE 12+ YR [facility] LEATHER CARTRIDGE BELT MAKER.SALES INCENTIVE ANALYST Work Phone: Start: 11-10-2021 Adult depression screening assessment [facility] LEATHER CARTRIDGE BELT MAKER.SALES INCENTIVE ANALYST Work Phone: Start: 10-18-2021 Radex foot complete minimum 3 views Shilo ousmanew [employer] Work Phone: Start: 10-12-2021 Diagnostic mammography computer-aided detcj uni Brenda Shankar LEATHER [employer]IDGE BELT MAKER.SUSTAINABILITY CONSULTANT Work Phone: Start: 09-05-2021 End: 09-05-2021 Screening mammography bi 2-view breast inc cad Brenda Vonnie ROSALES.SUSTAINABILITY CONSULTANT Work Phone: Start: 07-11-2021 PFIZER-[employer] COVID-19 VACCINE, AGE 12+ YR (ARIAS TOP) Claudine Durán MD Work Phone: Start: 07-07-2021 Lipid 1996 panel - Serum or Plasma Ashly Shay RN Start: 07-13-2020 Adult depression screening assessment Nara Dopart Start: 06-01-2020 Mammography Nara Dop[facility] Start: 03-24-2019 Colonoscopy Nara Dopart Plan of Treatment Date Care Activity Detail Author Start: 11-05-2029 Urine microalbumin profile [facility] Start: 03-24-2029 Colonoscopy COLONOSCOPY [facility] Start: 03-24-2029 COLORECTAL CANCER SCREENING COLORECTAL CANCER SCREENING [facility] Start: 03-24-2029 Screening for malignant neoplasm of colon [facility] Start: 07-23-2027 Diabetes Screening Diabetes Screening [facility] Start: 05-04-2027 Diabetes Screening Diabetes Screening [facility] Start: 05-01-2027 Diabetes Screening Diabetes Screening [facility] Start: 03-24-2027 Diabetes Screening Diabetes Screening [facility] Start: 03-21-2027 Diabetes Screening Diabetes Screening [facility] Start: 10-10-2026 Diabetes Screening Diabetes Screening [facility] Start: 08-29-2026 Diabetes Screening Diabetes Screening [facility] Start: 08-21-2026 Diabetes Screening Diabetes Screening [facility] Start: 07-07-2026 Lipid 1996 panel - Serum or Plasma Lipid Screening [facility] Start: 07-07-2026 Lipid panel Lipid Screening [facility] Start: 07-07-2026 LIPID SCREEN LIPID SCREEN [facility] Start: 06-04-2026 Diabetes Screening Diabetes Screening [facility] Start: 03-25-2026 Diabetes Screening Diabetes Screening [facility] Start: 03-22-2026 Diabetes Screening Diabetes Screening [facility] Start: 05-26-2025 End: 05-26-2025 Patient encounter procedure 05/26/2025 9:00 AM EDT Office Visit [facility] [place] [facility] [place] [address] Swanson, Jimbo, LEATHER CAR[employer] BELT MAKER.SALES INCENTIVE ANALYST [address] [place] [address] Medicare Wellness Internal Medicine [place] Comment on above: Medicare Wellness Start: 05-20-2025 BP Controlled (<130/80) BP Controlled (<130/80) [facility] Start: 05-20-2025 zzBP Controlled (<130/80) (Retired) zzBP Controlled (<130/80) (Retired) [facility] Start: 04-30-2025 BP Controlled (<130/80) BP Controlled (<130/80) [facility] Start: 02-28-2025 Annual PCP Team Chronic Disease Visit Annual PCP Team Chronic Disease Visit [facility] Start: 02-28-2025 Anxiety Screening Anxiety Screening [facility] Start: 02-28-2025 Covid-19 Vaccine () Covid-19 Vaccine () [facility] Comment on above: Postponed from 01/17/2024 (Declined at t his time) Postponed from 05/22 (Declined at this time) Start: 02-28-2025 Covid-19 Vaccine (9 - Pfizer risk ) Covid-19 Vaccine (9 - Pfizer risk ) [facility] Comment on above: Postponed from 05/22/2024 (Declined at t his time) Start: 02-28-2025 Depression Screening Depression Screening [facility] Start: 01-01-2025 BP Controlled (<130/80) BP Controlled (<130/80) [facility] Start: 10-27-2024 End: 10-27-2024 Patient encounter procedure 10/27/2024 10:00 AM EDT Office Visit [facility] [address] [place] [address] Geno Hart MD [address] [place] [address] Return in about 6 months (around 10/22/2024). [facility] Comment on above: Return in about 6 months (around ). Start: 10-20-2024 Influenza vaccination Influenza Vaccine (#1) [facility] Start: 10-17-2024 BP Controlled (<130/80) BP Controlled (<130/80) [facility] Start: 10-10-2024 BP Controlled (<130/80) BP Controlled (<130/80) [facility] Start: 09-03-2024 End: 09-03-2024 Anticoagulant drug monitoring 09/03/2024 10:00 AM EDT Antico[facility] Visit [facility] [place] [address] [place] [address] Wstr, Anticoag [facility] [place] [address] [place] [address] inr [facility] [place] Comment on above: inr Start: 08-29-2024 Prothrombin time [facility] Start: 08-28-2024 Prothrombin time [facility] Start: 08-27-2024 BP Controlled (<130/80) BP Controlled (<130/80) [facility] Start: 08-27-2024 Patient discharge [facility] Start: 08-26-2024 BP Controlled (<130/80) BP Controlled (<130/80) [facility] Start: 08-26-2024 Care planning and problem solving actions [facility] Start: 08-26-2024 Prothrombin time [facility] Start: 08-25-2024 Care planning and problem solving actions [facility] Start: 08-25-2024 Prothrombin time [facility] Start: 08-25-2024 [facility] Start: 08-24-2024 Prothrombin time [facility] Start: 08-23-2024 Application short arm splint forearm-hand static APPLY FOREARM SPLINT [facility] Start: 08-23-2024 Following clinical pathway protocol [facility] Start: 08-23-2024 Ambulation without limitation [facility] Start: 08-23-2024 Assessment of risk of venous thromboembolism [facility] Start: 08-23-2024 Consultation [facility] Start: 08-23-2024 Incentive spirometry [facility] Start: 08-23-2024 Insertion of catheter into peripheral vein [facility] Start: 08-23-2024 Measuring intake and output [facility] Start: 08-23-2024 Providing care according to standard [facility] Start: 08-23-2024 Referral to occupational therapist [facility] Start: 08-23-2024 Referral to service [facility] Start: 08-23-2024 [facility] Start: 08-23-2024 Verification routine [facility] Start: 08-23-2024 Admission procedure [facility] Start: 08-23-2024 Inhalation therapy procedure [facility] Start: 08-23-2024 [facility] Start: 08-21-2024 Annual PCP Team Chronic Disease Visit Annual PCP Team Chronic Disease Visit [facility] Start: 08-21-2024 BP Controlled (<130/80) BP Controlled (<130/80) [facility] in Start: 08-21-2024 End: 08-21-2024 Anticoagulant drug monitoring 08/21/2024 10:30 AM EDT Anticoagulation Visit [facility] [address] [place] [address] Wstr, [facility] [place] [address] [place] [address] inr [facility] Comment on above: inr Start: 08-07-2024 Annual PCP Team Chronic Disease Visit Annual PCP Team Chronic Disease Visit [facility] Start: 08-06-2024 End: 08-06-2024 Anticoagulant drug monitoring 08/06/2024 10:30 AM EDT Anticoagulation Visit [facility] [address] [place] [address] Wstr, [facility] [place] [address] [place] [address] inr [facility]mad[facility] Comment on above: inr Start: 07-22-2024 End: 07-22-2024 Patient encounter procedure Cardiology Comment on above: S/P TAVR Start: 07-22-2024 End: 07-22-2024 ambulatory [facility] J1-4 Dra mikal Rosales Comment on above: LAB S/P TAVR Start: 07-21-2024 End: 07-21-2024 Anticoagulant drug monitoring 07/21/2024 10:30 AM EDT Antico[facility] Visit [facility] [place] [address] [facility] [place] [address] Wstr, Anticoag [facility] [place] [address] [place] [address] inr [facility] [place] Comment on above: inr Start: 07-09-2024 BP Controlled (<130/80) BP Controlled (<130/80) [facility] inic Start: 07-07-2024 End: 07-07-2024 Anticoagulant drug monitoring 07/07/2024 10:30 AM EDT Anticoagulation Visit [facility] [place] [address] [facility] [place] [address] Wstr, Anticoag [facility] [place] [address] [place], [place] [id number] inr [facility] [place] Comment on above: inr Start: 06-16-2024 End: 09-15-2024 HISTOPLASMA AG URINE HISTOPLASMA AG URINE Lab Routine Disseminated histoplasmosis Expected: 06/16/2024, Expires: 09/15/2024 [facility] Work Phone: Comment on above: Expected: 06/16/2024, Expires: Start: 06-04-2024 Annual PCP Team Chronic Disease Visit Annual PCP Team Chronic Disease Visit [facility] Start: 06-04-2024 BP Controlled (<130/80) BP Controlled (<130/80) [facility] inic Start: 06-03-2024 End: 06-03-2024 Anticoagulant drug monitoring 06/03/2024 2:30 PM EDT Anticoagulation Visit [facility] [place] [address] [facility] [place] [address] Wstr, Anticoag [facility] [place] [address] [place] [address] inr [facility] [place] Comment on above: inr Start: 05-20-2024 End: 05-20-2024 Patient encounter procedure 05/20/2024 1:00 PM EDT Office Visit [facility] [place] [address] [place] [address] Jimbo Swanson APRN.SALES INCENTIVE ANALYST [address] [facility] [address] Medicare Wellness [facility] [place] Comment on above: Medicare Wellness Start: 05-20-2024 End: 05-20-2024 Anticoagulant drug monitoring 05/20/2024 12:30 PM EDT Anticoagulation Visit [facility] [place] [address] [facility] [place] [address] Wstr, Anticoag [facility] [place] [address] [place] [address] inr [facility] [place] Comment on above: inr Start: 05-05-2024 End: 05-05-2024 Patient encounter procedure Cardiology Comment on above: S/P TAVR Start: 05-02-2024 End: 08-01-2024 CBC W Auto Differential panel - Blood COMPLETE BLOOD COUNT AND DIFFERENTIAL Lab STAT Nonrheumatic aortic valve stenosis Aortic valve disorder Expected: 05/02/2024 (Approximate), Expires: 08/01/2024 [facility] Comment on above: Expected: 05/02/2024 (Approximate), Expi res: 08/01/2024 Start: 05-02-2024 End: 08-01-2024 Comprehensive metabolic 2000 panel - Serum or Plasma COMPREHENSIVE METABOLIC PANEL Lab STAT Nonrheumatic aortic valve stenosis Aortic valve disorder Expected: 05/02/2024 (Approximate), Expires: 08/01/2024 [facility] Comment on above: Expected: 05/02/2024 (Approximate), Expi res: 08/01/2024 Start: 05-02-2024 End: 08-01-2024 CONFIRM BLOOD TYPE CONFIRM BLOOD TYPE Blood Bank STAT Nonrheumatic aortic valve stenosis Aortic valve disorder Expected: 05/02/2024 (Approximate), Expires: 08/01/2024 [facility] Comment on above: Expected: 05/02/2024 (Approximate), Expi res: 08/01/2024 Start: 05-02-2024 End: 08-01-2024 Natriuretic peptide.B prohormone N-Terminal [Mass/volume] in Serum or Plasma NT PRO BNP Lab STAT Nonrheumatic aortic valve stenosis Aortic valve disorder Expected: 05/02/2024 (Approximate), Expires: 08/01/2024 [facility] Comment on above: Expected: 05/02/2024 (Approximate), Expi res: 08/01/2024 Start: 05-02-2024 End: 08-01-2024 PT panel - Platelet poor plasma by Coagulation assay PROTHROMBIN TIME Lab STAT Nonrheumatic aortic valve stenosis Aortic valve disorder Expected: 05/02/2024 (Approximate), Expires: 08/01/2024 [facility] Comment on above: Expected: 05/02/2024 (Approximate), Expi res: 08/01/2024 Start: 05-02-2024 End: 08-01-2024 TYPE AND SCREEN,30 DAY TYPE AND SCREEN,30 DAY Blood Bank STAT Nonrheumatic aortic valve stenosis Aortic valve disorder Expected: 05/02/2024 (Approximate), Expires: 08/01/2024 [facility] Comment on above: Expected: 05/02/2024 (Approximate), Expi res: 08/01/2024 Start: 05-02-2024 End: 05-02-2024 Replace aortic valve perq femoral artry approach TRANSCATHETER AORTIC VALVE REPLACEMENT (TAVR/ROLA) W/ PROSTHETIC VALVE PERCUTANEOUS FEMORAL ARTERY APPROACH Aortic valve stenosis, etiology of cardiac valve disease unspecified 05/02/2024 10:32 AM EDT TELMA [facility]OL[facility] CT & VAS Start: 05-02-2024 End: 05-02-2024 Patient encounter procedure 05/02/2024 8:45 AM EDT Office Visit Cardiology [address] [place] [address] COMMERCIAL TF- TAVR ( CARLYN) Cardiology Comment on above: COMMERCIAL TF- TAVR ( CARLYN) Start: 05-02-2024 End: 05-02-2024 ambulatory 05/02/2024 8:30 AM EDT Procedure Cardiology [address] [place] [address] COMMERCIAL TF- TAVR ( CARLYN) Cardiology Comment on above: COMMERCIAL TF- TAVR ( CARLYN) Start: 05-02-2024 End: 05-02-2024 Anesthesia consultation 05/02/2024 8:00 AM EDT Anesthesia Event Admitting [address] [place] [address] Nara Mcnair APRN.CUSTOM FEED CORN OPERATOR [address], [address] [place] [address] Admitting Start: 05-02-2024 End: 05-02-2024 Admission to same day surgery center Admitting Comment on above: TRANSCATHETER AORTIC VALVE REPLACEMENT ( TAVR/ROLA) W/ PROSTHETIC VALVE PERCUTANEOUS FEMORAL ARTERY APPROACH Start: 05-02-2024 End: 05-02-2024 Replace aortic valve perq femoral artry approach TELMA MOLINA CT & VAS Start: 05-02-2024 Subsequent hospital visit by physician Admitting Comment on above: COMMERCIAL TF- TAVR ( CARLYN), Procedure o n: Thursday May 02, 2024 at 8:30 am Start: 05-01-2024 End: 05-01-2024 Anticoagulant drug monitoring 05/01/2024 11:30 AM EDT Anticoagulation Visit [facility] [address] [id number] [place], Anticoag [facility] [address] [id number] inr [facility] [place] Comment on above: inr Start: 04-30-2024 End: 04-30-2024 Patient encounter procedure 04/30/2024 2:20 PM EDT Office Visit Cardiothoracic [address] [place] [address] COMMERCIAL TF- TAVR ( CARLYN) Cardiothoracic Comment on above: COMMERCIAL TF- TAVR ( CARLYN) Start: 04-30-2024 End: 04-30-2024 Patient encounter procedure Cardiology Comment on above: COMMERCIAL TF- TAVR ( CARLYN) Start: 04-30-2024 End: 04-30-2024 ambulatory 04/30/2024 11:00 AM EDT Results Only Main [place] [facility] Station [address] [place] [address] COMMERCIAL TF- TAVR ( CARLYN) [facility] Draw Station Comment on above: COMMERCIAL TF- TAVR ( CARLYN) Start: 04-21-2024 End: 04-21-2024 Patient encounter procedure 04/21/2024 11:00 AM EST Office Visit [facility] [address] [place] [address] Geno Hart MD [address] [place] [address] Return in about 4 months (around 04/18/2024). [facility] Comment on above: Return in about 4 months (around 04/18/19). Start: 04-03-2024 End: 04-03-2024 Anticoagulant drug monitoring 04/03/2024 11:30 AM EST Anticoagulation Visit [facility] [place] [address] [place], [place] [phone] [place], Anticoag [facility] [place] [address] [place] [address] inr [facility] [place] Comment on above: inr Start: 03-25-2024 End: 03-25-2024 Patient encounter procedure Cardiology Comment on above: New TAVR Workup NM SPECT/CT CARDIAC AMYLOID Start: 03-25-2024 End: 03-25-2024 ambulatory Pulmonary Medicine Comment on above: New TAVR Workup Start: 03-24-2024 End: 03-24-2024 Admission to same day surgery center 03/24/2024 5:45 PM EST - 03/24/2024 6:53 PM EST Surgery HOSP Service Desk Specialist [address] [place] [address] Michael Beavers MD [address] [place] [address]ON[address] C[address] W IMAGE INJECT & INTERP W LT HEART CATH W INJECT LT VENTRGRAPHY HOSP Service Desk Specialist Comment on above: CORONARY ANGIO W CATH PLACE W IMAGE INJE CT & INTERP W LT HEART CATH W INJECT LT VENTRGRAPHY Start: 03-24-2024 End: 03-24-2024 Cath plmt l hrt & arts w/njx & angio img s&i CORONARY ANGIO W CATH PLACE W IMAGE INJECT & INTERP W LT HEART CATH W INJECT LT VENTRGRAPHY Nonrheumatic aortic valve stenosis 03/24/2024 5:45 PM EST [employer]ANCE [employer]ET[employer] REP Start: 03-24-2024 Subsequent hospital visit by physician 03/24/2024 5:45 PM EST Hospital Encounter HOSP Service Desk Specialist [address] [place] [address] Michael Beavers MD [address] [place] [address] Nonrheumatic aortic valve stenosis [I35.0] HOSP Service Desk Specialist Comment on above: Nonrheumatic aortic valve stenosis [I35. 0] Start: 03-24-2024 End: 03-24-2024 Patient encounter procedure 03/24/2024 10:00 AM EST Office Visit Admitting [address] [place] [address] ADMIT Admitting Comment on above: ADMIT Start: 03-24-2024 End: 03-24-2024 ambulatory Cardiology Comment on above: C Start: 03-21-2024 End: 03-21-2024 ambulatory [facility] J1-4 Dra mikal Rosales Comment on above: New TAVR Workup Start: 03-21-2024 End: 03-21-2024 Patient encounter procedure Radiology Comment on above: New TAVR Workup Start: 03-21-2024 End: 03-21-2024 Patient encounter procedure 03/21/2024 9:30 AM EST Office Visit Cardiology [address] [place] [address] [place] [address] [place] [address] Clinician, Interventional [address] [place] [address] New TAVR Workup Cardiology Comment on above: New TAVR Workup Start: 03-03-2024 BP Controlled (<130/80) BP Controlled (<130/80) [facility] in Start: 02-29-2024 End: 02-29-2024 Patient encounter procedure 02/29/2024 3:40 PM EST Office Visit Internal Medicine [place] [address] [place] [address] Claudine Durán MD [address] [place] [address] 4 Month follow up [facility] [place] Comment on above: 4 Month follow up Start: 02-29-2024 End: 02-29-2024 Anticoagulant drug monitoring 02/29/2024 3:30 PM EST Anticoagulation Visit [facility] [place] [address] [place] [address] [place], Anticoag [facility] [place] [address] [place] [address] inr Coumadin [facility] Comment on above: inr Start: 02-25-2024 End: 02-25-2024 Patient encounter procedure 02/25/2024 12:15 PM EST Office Visit Cardiology [address] [place] [phone] Lili Roche MD [address] [place] [address] Aortic valve stenosis, etiology of cardiac valve disease unspecified [I35.0] Cardiology Comment on above: Aortic valve stenosis, etiology of cardi ac valve disease unspecified [I35.0] Start: 02-20-2024 Advance Directive Discussion Advance Directive Discussion [facility] Start: 01-31-2024 End: 01-31-2024 Anticoagulant drug monitoring 01/31/2024 10:30 AM EST Anticoagulation Visit [facility] [place] [address] [place] [address] Wstr, Anticoag [facility] [place] [address] [place] [address] inr Coumadin [facility] Comment on above: inr Start: 01-25-2024 End: 01-25-2024 Patient encounter procedure 01/25/2024 11:20 AM EST Office Visit Cardiology [address] [place] [address] [place] [address] William Messina, DO [address] [place] [address] 3 month follow up Cardiology Comment on above: 3 month follow up Start: 01-18-2024 End: 10-17-2024 ECHO LIMITED ECHO LIMITED Cardiology Routine Pericardial effusion Expected: 01/18/2024 (Approximate), Expires: 10/17/2024 [facility] Work Phone: Comment on above: Expected: 01/18/2024 (Approximate), Expi res: 10/17/2024 Start: 01-18-2024 End: 01-18-2024 Patient encounter procedure 01/18/2024 10:30 AM EST Office Visit Cardiology [address] [address] Pericardial effusion [I31.39] Cardiology Comment on above: Pericardial effusion [I31.39] Start: 01-17-2024 Covid-19 Vaccine () Covid-19 Vaccine () [facility] Start: 01-10-2024 End: 01-10-2024 Anticoagulant drug monitoring 01/10/2024 12:00 PM EST Anticoagulation Visit Coumadin [facility] [address] [place], [place] [phone] [place], Anticoag [facility] [place] [address] [place] [address] inr [facility] [place] Comment on above: inr Start: 01-08-2024 End: 04-08-2024 CBC W Auto Differential panel - Blood COMPLETE BLOOD COUNT AND DIFFERENTIAL Lab Routine Nonrheumatic aortic valve stenosis Aortic valve disorder Expected: 01/08/2024, Expires: 04/08/2024 [facility] Comment on above: Expected: 01/08/2024, Expires: Start: 01-08-2024 End: 04-08-2024 Comprehensive metabolic 2000 panel - Serum or Plasma COMPREHENSIVE METABOLIC PANEL Lab Routine Nonrheumatic aortic valve stenosis Aortic valve disorder Expected: 01/08/2024, Expires: 04/08/2024 [facility] Comment on above: Expected: 01/08/2024, Expires: Start: 01-08-2024 End: 04-08-2024 HIGH SENSITIVITY TROPONIN T HIGH SENSITIVITY TROPONIN T Lab Routine Nonrheumatic aortic valve stenosis Expected: 01/08/2024, Expires: 04/08/2024 [facility] Comment on above: Expected: 01/08/2024, Expires: 5 Start: 01-08-2024 End: 04-08-2024 Lipoprotein a [Mass/volume] in Serum or Plasma LIPOPROTEIN (A) Lab Routine Nonrheumatic aortic valve stenosis Expected: 01/08/2024, Expires: 04/08/2024 [facility] Comment on above: Expected: 01/08/2024, Expires: 5 Start: 01-08-2024 End: 04-08-2024 Natriuretic peptide.B prohormone N-Terminal [Mass/volume] in Serum or Plasma NT PRO BNP Lab Routine Nonrheumatic aortic valve stenosis Expected: 01/08/2024, Expires: 04/08/2024 [facility] Comment on above: Expected: 01/08/2024, Expires: Start: 01-08-2024 End: 04-08-2024 PT panel - Platelet poor plasma by Coagulation assay PROTHROMBIN TIME Lab STAT Nonrheumatic aortic valve stenosis Expected: 01/08/2024, Expires: 04/08/2024 [facility] Comment on above: Expected: 01/08/2024, Expires: 5 Start: 01-08-2024 End: 01-08-2024 Patient encounter procedure 01/08/2024 10:30 AM EST Office Visit [facility] [address] [address] Geno Hart MD [address] [place] [address] follow up [facility] Comment on above: follow up Start: 01-05-2024 BP Controlled (<130/80) BP Controlled (<130/80) [facility] Start: 01-02-2024 End: 01-02-2024 Patient encounter procedure 01/02/2024 9:45 AM EST Office Visit Cardiology [address] [place] [address] Lili Roche MD [address] [place] [address] DX: Aortic valve stenosis, etiology of cardiac valve disease unspecified; Mitral valve stenosis, unspecified etiology Cardiology Comment on above: DX: Aortic valve stenosis, etiology of c ardiac valve disease unspecified; Mitral valve stenosis, unspecified etiology Start: 01-02-2024 End: 01-02-2024 ambulatory 01/02/2024 9:00 AM EST Results Only Cardiology [address] [place] [id number] DX: Aortic valve stenosis, etiology of cardiac valve disease unspecified; Mitral valve stenosis, unspecified etiology Cardiology Comment on above: DX: Aortic valve stenosis, etiology of c ardiac valve disease unspecified; Mitral valve stenosis, unspecified etiology Start: 12-27-2023 End: 12-27-2023 Anticoagulant drug monitoring 12/27/2023 10:30 AM EST Anticoagulation Visit Coumadin [facility] [address] [place] [address] [place], [facility] [place] [address] [place] [address] inr [facility] [place] Comment on above: inr Start: 12-18-2023 End: 12-18-2023 Patient encounter procedure 12/18/2023 11:00 AM EDT Office Visit [facility] [address] [place] [address] Geno Hart MD [address] [place] [address] follow up [facility] Comment on above: follow up Start: 12-13-2023 End: 12-13-2023 Anticoagulant drug monitoring 12/13/2023 10:45 AM EDT Anticoagulation Visit [facility] [place] [address] [facility] [place] [address] Wstr, Anticoag [facility] [place] [address] [place] [address] inr [facility] [place] Comment on above: inr Start: 11-29-2023 End: 11-29-2023 Anticoagulant drug monitoring 11/29/2023 11:00 AM EDT Anticoagulation Visit [facility] [place] [address] [facility] [place] [address] Wstr, Anticoag [facility] [address] [place] [address] inr [facility] [place] Comment on above: inr Start: 11-15-2023 End: 11-15-2023 Anticoagulant drug monitoring 11/15/2023 12:00 PM EDT Anticoagulation Visit [facility] [place] [address] [facility] [place] [address] Wstr, [facility]ticoag [facility] [address] [place] [address] inr [facility] [place] Comment on above: inr Start: 11-08-2023 End: 11-08-2023 Anticoagulant drug monitoring 11/08/2023 1:00 PM EDT Anticoagulation Visit [facility] [place] [address] [facility] [place] [address] Wstr, Anticoag [facility] [address] [place] [address] inr [facility] [place] Comment on above: inr Start: 10-28-2023 BP CONTROLLED (<130/80) BP CONTROLLED (<130/80) [facility] Start: 10-25-2023 End: 10-25-2023 Anticoagulant drug monitoring 10/25/2023 12:00 PM EDT Anticoagulation Visit [facility] [place] [address] [facility] [place] [address] Wstr, Anticoag [facility] [place] [address] [place], [place] [id number] inr [facility] [place] Comment on above: inr Start: 10-21-2023 Covid-19 Vaccine ( season) Covid-19 Vaccine () [facility] Start: 10-21-2023 Covid-19 Vaccine () Covid-19 Vaccine () [facility] Start: 10-21-2023 Influenza vaccination Influenza Vaccine (#1) [facility] Start: 10-19-2023 End: 10-19-2023 Anticoagulant drug monitoring 10/19/2023 11:00 AM EDT Anticoagulation Visit [facility] [place] [address] [place] [address] [place], [facility] [place] [address] [place], [place] [id number] inr [facility] [place] Comment on above: inr Start: 10-18-2023 End: 10-18-2023 Patient encounter procedure 10/18/2023 10:00 AM EDT Office Visit Cardiology [address] [address] Bibi Alegria LEATHER CARTRIDGE BELT MAKER.SUSTAINABILITY CONSULTANT [address] [place] [address] 1 month follow up Cardiology Comment on above: 1 month follow up Start: 10-11-2023 End: 10-11-2023 Patient encounter procedure 10/11/2023 1:00 PM EDT Office Visit Internal Medicine [place] [address] [place] [address] Jimbo Swanson, LEATHER CARTRIDGE BELT MAKER.SALES INCENTIVE ANALYST [address] [place] [address] 4Month follow up [facility] [place] Comment on above: 4Month follow up Start: 09-28-2023 End: 09-28-2023 Patient encounter procedure 09/28/2023 10:30 AM EDT Office Visit Cardiology [address] [address] Nonrheumatic aortic valve stenosis [I35.0] Cardiology Comment on above: Nonrheumatic aortic valve stenosis [I35. 0] Start: 09-27-2023 End: 09-27-2023 Anticoagulant drug monitoring 09/27/2023 10:45 AM EDT Anticoagulation Visit [facility] [place] [address] [place] [address] [facility] [address] [place] [address] inr [facility] [place] Comment on above: inr Start: 09-20-2023 End: 09-20-2023 Anticoagulant drug monitoring 09/20/2023 10:00 AM EDT Anticoagulation Visit Coumadin [facility] [address] [place] [address] Wstr, [facility] [place] [address] [place] [address] inr [facility] [place] Comment on above: inr Start: 09-10-2023 End: 12-10-2023 Basic metabolic 2000 panel - Serum or Plasma BASIC METABOLIC PANEL Lab Routine Nonrheumatic aortic valve stenosis Mitral valve stenosis, non-rheumatic Essential hypertension Pericardial effusion (noninflammatory) Leg edema Expected: 09/10/2023, Expires: 12/10/2023 [facility] Comment on above: Expected: 09/10/2023, Expires: Start: 09-10-2023 End: 12-10-2023 Natriuretic peptide.B prohormone N-Terminal [Mass/volume] in Serum or Plasma NT PRO BNP Lab Routine Nonrheumatic aortic valve stenosis Mitral valve stenosis, non-rheumatic Essential hypertension Pericardial effusion (noninflammatory) Leg edema Expected: 09/10/2023, Expires: 12/10/2023 [facility] Comment on above: Expected: 09/10/2023, Expires: Start: 08-30-2023 End: 08-30-2023 Anticoagulant drug monitoring 08/30/2023 12:45 PM EDT Anticoagulation Visit [facility] [place] [address] [place] [address] Wstr, Anticoag [facility] [place] [address] [place] [address] inr Coumadin [facility] Comment on above: inr Start: 08-28-2023 End: 11-27-2023 Histoplasma capsulatum Ab [Presence] in Serum by Immune diffusion (ID) HISTOPLASMA AB ID Lab Routine Disseminated histoplasmosis Encounter for long-term (current) use of antibiotics Expected: 08/28/2023, Expires: 11/27/2023 [facility] Work Phone: Comment on above: Expected: 08/28/2023, Expires: Start: 08-28-2023 End: 08-28-2023 Patient encounter procedure 08/28/2023 9:00 AM EDT Office Visit [facility] [address] [address] Geno Hart MD [address] [address] follow up [facility] Comment on above: follow up Start: 08-27-2023 End: 08-27-2023 Patient encounter procedure 08/27/2023 8:20 AM EDT Office Visit Cardiology [address] [place] [address] William Messina DO [address] [place] [address] Annual Cardiology Comment on above: Annual Start: 08-22-2023 End: 08-22-2023 Anticoagulant drug monitoring 08/22/2023 9:30 AM EDT Anticoagulation Visit Coumadin [facility] [address] [place] [address] Wstr, Anticoag [facility] [place] [address] [place] [address] inr [facility] [place] Comment on above: inr Start: 08-15-2023 End: 11-14-2023 Basic metabolic 2000 panel - Serum or Plasma BASIC METABOLIC PANEL Lab Routine Encounter for therapeutic drug monitoring Expected: 08/15/2023, Expires: 11/14/2023 [facility] Work Phone: Comment on above: Expected: 08/15/2023, Expires: Start: 08-15-2023 End: 08-15-2023 Patient encounter procedure Radiology Comment on above: Right knee Right knee pain/swel ling Start: 08-13-2023 End: 08-13-2023 Patient encounter procedure 08/13/2023 9:20 AM EDT Office Visit Cardiology [facility] [address] [place], [place] [id number] William Messina, [address] [place] [address] annual Cardiology Comment on above: annual Start: 08-09-2023 End: 08-09-2023 Anticoagulant drug monitoring 08/09/2023 9:30 AM EDT Anticoagulation Visit Coumadin [facility] [address] [place] [address] Wstr, Anticoag [facility] [place] [address] [place] [address] inr [facility] [place] Comment on above: inr Start: 07-26-2023 End: 07-26-2023 Anticoagulant drug monitoring 07/26/2023 9:30 AM EDT Anticoagulation Visit [facility] [place] [address] [place] [address] Wstr, Anticoag [facility] [place] [address] [place] [address] inr [facility] [place] Comment on above: inr Start: 07-21-2023 BP CONTROLLED (<130/80) BP CONTROLLED (<130/80) [facility] Start: 07-12-2023 End: 07-12-2023 Anticoagulant drug monitoring 07/12/2023 9:00 AM EDT Anticoagulation Visit [facility] [place] [address] [place] [address] Wstr, Anticoag [facility] [place] [address] [place] [address] inr [facility] [place] Comment on above: inr Start: 07-11-2023 End: 07-11-2023 Patient encounter procedure 07/11/2023 12:00 PM EDT Office Visit [facility] [address] [place] [address] Acute pain of right knee [M25.561] [facility] Comment on above: Acute pain of right knee [M25.561] Start: 07-08-2023 DIABETES SCREEN DIABETES SCREEN [facility] Start: 07-08-2023 Diabetes Screening Diabetes Screening [facility] Start: 05-04-2023 Blood chemistry [facility] Start: 04-30-2023 Development of care plan [facility] Start: 04-30-2023 Patient discharge [facility] Start: 04-27-2023 Blood chemistry [facility] Start: 04-20-2023 Blood chemistry [facility] Start: 04-19-2023 Prothrombin time [facility] Start: 04-17-2023 Prothrombin time [facility] Start: 04-15-2023 Wound care [facility] Start: 04-10-2023 Consultation for treatment [facility] Start: 04-09-2023 Speech therapy management [facility] Start: 04-09-2023 Speech therapy assessment [facility] Start: 04-08-2023 [facility] Start: 04-08-2023 Inhalation therapy procedure [facility] Start: 04-06-2023 Development of care plan [facility] Start: 04-06-2023 Developing a treatment plan [facility] Start: 04-05-2023 Admission procedure [facility] Start: 04-05-2023 Measuring intake and output [facility] Start: 04-05-2023 Patient referral to dietitian [facility] Start: 04-05-2023 Referral to occupational therapist [facility] Start: 04-05-2023 Referral to service [facility] Start: 04-05-2023 Vital signs measurements [facility] Start: 04-05-2023 End: 04-05-2023 [facility] Start: 04-05-2023 Verification routine [facility] Start: 04-05-2023 Patient discharge [facility] Start: 04-05-2023 Prothrombin time [facility] Start: 04-04-2023 Application of intermittent pneumatic compression device [facility] Start: 04-04-2023 Application of intermittent pneumatic compression device [facility] Start: 04-04-2023 Consultation [facility] Start: 04-04-2023 Prothrombin time [facility] Start: 04-03-2023 Consultation [facility] Start: 04-03-2023 Prothrombin time [facility] Start: 04-02-2023 Prothrombin time [facility] Start: 04-01-2023 End: 07-01-2023 ALK PHOS ISOENZYM BL ALK PHOS ISOENZYM BL Lab Routine Elevated alkaline phosphatase level Expected: 04/01/2023, Expires: 07/01/2023 [facility] Work Phone: Comment on above: Expected: 04/01/2023, Expires: 4 Start: 04-01-2023 End: 07-01-2023 Comprehensive metabolic 2000 panel - Serum or Plasma COMP METABOLIC PANEL Lab Routine Hypoalbuminemia Elevated alkaline phosphatase level Elevated LFTs Expected: 04/01/2023, Expires: 07/01/2023 [facility] Work Phone: Comment on above: Expected: 04/01/2023, Expires: 4 Start: 04-01-2023 Application of elastic bandage [facility] Start: 04-01-2023 Administration of blood product [facility] Start: 04-01-2023 End: 07-01-2023 CBC W Auto Differential panel - Blood [facility] [facility] Comment on above: Expected: 04/01/2023, Expires: 4 Start: 04-01-2023 Magnesium [Mass/volume] in Serum or Plasma [facility] Start: 04-01-2023 Prothrombin time [facility] Start: 04-01-2023 [facility] Start: 04-01-2023 Inhalation therapy procedure [facility] Start: 03-31-2023 Following clinical pathway protocol [facility] Start: 03-31-2023 Ankle 2 Views Ankle 2 Views [facility] Start: 03-31-2023 Assessment of risk of venous thromboembolism [facility] Start: 03-31-2023 C reactive protein [Mass/volume] in Serum or Plasma [facility] Start: 03-31-2023 Consultation for treatment [facility] Start: 03-31-2023 Elevation of affected extremity [facility] Start: 03-31-2023 Erythrocyte sedimentation rate [facility] Start: 03-31-2023 Insertion of catheter into peripheral vein [facility] Start: 03-31-2023 Measuring intake and output [facility] Start: 03-31-2023 Providing care according to standard [facility] Start: 03-31-2023 Provision of activity privileges [facility] Start: 03-31-2023 Referral to occupational therapist [facility] Start: 03-31-2023 Referral to service [facility] Start: 03-31-2023 US Heart [facility] Start: 03-31-2023 US.doppler Lower extremity vein [facility] Start: 03-31-2023 XR Ankle 2 Views [facility] Start: 03-31-2023 [facility] Start: 03-31-2023 Verification routine [facility] Start: 03-31-2023 Admission procedure [facility] Start: 03-31-2023 Consultation [facility] Start: 03-31-2023 Patient referral to dietitian [facility] Start: 03-28-2023 [facility] Start: 03-28-2023 [facility] Start: 03-28-2023 Emergency department visit high/urgent severity [facility] Start: 03-27-2023 Patient discharge [facility] Start: 03-27-2023 [facility] Start: 03-27-2023 [facility] Start: 03-26-2023 Following clinical pathway protocol [facility] Start: 03-26-2023 Assessment of risk of venous thromboembolism [facility] Start: 03-26-2023 Incentive spirometry [facility] Start: 03-26-2023 Insertion of catheter into peripheral vein [facility] Start: 03-26-2023 Measuring intake and output [facility] Start: 03-26-2023 Providing care according to standard [facility] Start: 03-26-2023 Provision of activity privileges [facility] Start: 03-26-2023 Referral to occupational therapist [facility] Start: 03-26-2023 Referral to service [facility] Start: 03-26-2023 [facility] Start: 03-26-2023 Verification routine [facility] Start: 03-26-2023 Admission procedure [facility] Start: 03-26-2023 Hospital admission, emergency, from emergency room, medical nature [facility] Start: 03-26-2023 [facility] Start: 03-26-2023 Inhalation therapy procedure [facility] Start: 03-19-2023 Fresh frozen plasma [facility] Start: 03-19-2023 End: 03-19-2023 [facility] Start: 03-19-2023 Administration of blood product [facility] Start: 03-13-2023 ANNUAL PCP TEAM CHRONIC DISEASE VISIT ANNUAL PCP TEAM CHRONIC DISEASE VISIT [facility] Start: 03-13-2023 BP CONTROLLED (<130/80) BP CONTROLLED (<130/80) [facility] Start: 03-01-2023 Covid-19 Vaccine () Covid-19 Vaccine () [facility] Start: 02-19-2023 Advance Directive Discussion Advance Directive Discussion [facility] Start: 02-19-2023 Behavioral Health Screening Behavioral Health Screening [facility] Start: 02-19-2023 Depression Assessment Depression Assessment [facility] Start: 01-23-2023 End: 08-23-2023 Ct thorax w/o contrast material CT CHEST WO IVCON Radiology Routine Lung nodules Bronchiectasis without complication (HCC) Expected: 01/23/2023, Expires: 08/23/2023 [facility] Work Phone: Comment on above: Expected: 01/23/2023, Expires: Start: 11-29-2022 BP CONTROLLED (<130/80) BP CONTROLLED (<130/80) [facility] Start: 11-10-2022 Adult depression screening assessment DEPRESSION SCREENING [facility] Start: 10-20-2022 Covid-19 Vaccine ( season) Covid-19 Vaccine () [facility] Start: 10-20-2022 Influenza vaccination INFLUENZA (#1) [facility] Start: 09-20-2022 BP CONTROLLED (<130/80) BP CONTROLLED (<130/80) [facility] Start: 09-05-2022 Mammography MAMMOGRAM [facility] Start: 07-11-2022 ANNUAL PCP TEAM CHRONIC DISEASE VISIT ANNUAL PCP TEAM CHRONIC DISEASE VISIT [facility] Start: 07-11-2022 BP CONTROLLED (<130/80) BP CONTROLLED (<130/80) [facility] Start: 03-14-2022 ANNUAL PCP TEAM CHRONIC DISEASE VISIT ANNUAL PCP TEAM CHRONIC DISEASE VISIT [facility] Start: 03-14-2022 BP CONTROLLED (<130/80) BP CONTROLLED (<130/80) [facility] Start: 02-19-2022 ADVANCE DIRECTIVE DISCUSSION ADVANCE DIRECTIVE DISCUSSION [facility] Start: 02-19-2022 DEPRESSION ASSESSMENT DEPRESSION ASSESSMENT [facility] Start: 01-05-2022 COVID-19 VACCINE (7 - Pfizer risk series) COVID-19 VACCINE (7 - Pfizer risk series) [facility] Start: 11-11-2021 COVID-19 VACCINE (5 - Booster for Pfizer series) COVID-19 VACCINE (5 - Booster for Pfizer series) [facility] Start: 11-10-2021 End: 01-10-2022 Alpha 1 antitrypsin [Mass/volume] in Serum or Plasma [id number] Lab Routine Chronic obstructive pulmonary disease, unspecified COPD type (HCC) Expected: 11/10/2021, Expires: 01/10/2022 [facility] Work Phone: Comment on above: Expected: 11/10/2021, Expires: Start: 10-20-2021 Influenza vaccination INFLUENZA (#1) [facility] Start: 07-13-2021 Adult depression screening assessment DEPRESSION SCREENING [facility] Start: 06-01-2021 Mammography MAMMOGRAM [facility] Start: 02-19-2021 ADVANCE DIRECTIVE DISCUSSION ADVANCE DIRECTIVE DISCUSSION [facility] Start: 02-19-2021 DEPRESSION ASSESSMENT DEPRESSION ASSESSMENT [facility] Start: 02-08-2021 COVID-19 VACCINE (4 - Booster for Pfizer series) COVID-19 VACCINE (4 - Booster for Pfizer series) [facility] Start: 12-27-2020 LIPID SCREEN LIPID SCREEN [facility] Start: 08-04-2017 FECAL OCCULT BLOOD FECAL OCCULT BLOOD [facility] Start: 08-04-2017 Screening for malignant neoplasm of colon Fecal Occult Blood [facility] Start: 2007 RSV Vaccine (1 - 1-dose 60+ series) RSV Vaccine (1 - 1-dose 60+ series) [facility] Start: 05-29-1992 COLOGUARD (FIT-DNA) COLOGUARD (FIT-DNA) [facility] Start: 05-29-[address] COLONOGRAPHY [facility] Start: 05-29-1992 Screening for malignant neoplasm of colon [facility] Start: 05-29-1992 SIGMOIDOSCOPY SIGMOIDOSCOPY [facility] Start: 05-29-1977 Zoledronic acid therapy ALPHA-1 ANTITRYPSIN DEFICIENCY SCREENING [facility] Start: 05-29-1965 Anxiety Screening Anxiety Screening [facility] Start: 05-29-1965 BP CONTROLLED (<130/80) BP CONTROLLED (<130/80) [facility] Start: 05-29-1965 Depression Screening Depression Screening [facility] Alanine aminotransfe rase [Enzymatic activity/volume] in Serum or Plasma [facility] Albumin [Mass/volume ] in Serum or Plasma [facility] Alkaline phosphatase [Enzymatic activity/volume] in Serum or Plasma [facility] Anion gap in Serum o r Plasma [facility] Anion gap measurement [facility] Anion gap measurement [facility] Anion gap measurement [facility] Anion gap measurement [facility] Aspartate aminotransferase [Enzymatic activity/volume] in Serum or Plasma [facility] End: 08-21-2024 Basic metabolic 2000 panel - Serum or Plasma BASIC METABOLIC PANEL Lab Routine Encounter for long-term current use of medication 20 Occurrences starting 08/22/2023 until 08/21/2024 [facility] Work Phone: Comment on above: 20 Occurrences starting 08/22/2023 until 08/21/2024 Bilirubin measuremen t, urine [facility] Bilirubin, total measurement [facility] BUN/Creatinine ratio [facility] BUN/Creatinine ratio [facility] BUN/Creatinine ratio [facility] BUN/Creatinine ratio [facility] BUN/Creatinine ratio [facility] Calcium [Mass/volume ] in Serum or Plasma [facility] Calcium [Mass/volume ] in Serum or Plasma [facility] Calcium [Mass/volume ] in Serum or Plasma [facility] Calcium [Mass/volume ] in Serum or Plasma [facility] Calcium [Mass/volume ] in Serum or Plasma [facility] Carbon dioxide, tota l [Moles/volume] in Central venous blood [facility] Carbon dioxide, tota l [Moles/volume] in Serum or Plasma [facility] Carbon dioxide, tota l [Moles/volume] in Serum or Plasma [facility] Carbon dioxide, tota l [Moles/volume] in Serum or Plasma [facility] Carbon dioxide, tota l [Moles/volume] in Serum or Plasma [facility] CARDIAC REHAB II OUT PT ([place], [place]) CARDIAC REHAB II OUTPT ([place], [place]) BIC Routine 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 Work Phone: Comment on above: Ordered: 05/05/2024 Chloride [Moles/volu me] in Serum or Plasma [facility] Chloride [Moles/volu me] in Serum or Plasma [facility] Chloride [Moles/volu me] in Serum or Plasma [facility] Chloride [Moles/volu me] in Serum or Plasma [facility] Creatinine [Mass/vol ume] in Serum or Plasma [facility] Creatinine [Moles/volume] in Serum or Plasma [facility] Creatinine [Moles/volume] in Serum or Plasma [facility] Creatinine [Moles/volume] in Serum or Plasma [facility] Creatinine [Moles/volume] in Serum or Plasma [facility] CT Chest WO contrast CT CHEST WO IVCON Radiology Routine Disseminated histoplasmosis 08/30/2023 2:[address] [facility] Work Phone: End: 08-08-2025 CT Chest WO contrast CT CHEST WO IVCON Radiology Routine Disseminated histoplasmosis 1 Occurrences starting 08/28/2023 until 09/26/2024 [facility] Comment on above: 1 Occurrences starting 08/28/2023 until 09/26/2024 End: 12-29-2022 Ct thorax w/o contrast material CT CHEST WO IVCON Radiology Routine Lung nodules 1 Occurrences starting 11/29/2021 until 12/29/2022 [facility] Work Phone: Comment on above: 1 Occurrences starting 11/29/2021 until 12/29/2022 End: 02-06-2025 CTA Chest vessels and Abdominal vessels and Pelvis vessels W contrast IV CTA CHEST/ABD/PEL (GATED) W IVCON Radiology Routine Nonrheumatic aortic valve stenosis Encounter for preprocedural cardiovascular examination 1 Occurrences starting 01/08/2024 until 02/06/2025 [facility] Comment on above: 1 Occurrences starting 01/08/2024 until 02/06/2025 End: 08-12-2022 ECG COMPLETE ECG COMPLETE ECG Routine Aortic stenosis with bicuspid valve Essential hypertension 1 Occurrences starting 08/12/2021 until 08/12/2022 [facility] Work Phone: Comment on above: 1 Occurrences starting 08/12/2021 until 08/12/2022 End: 01-07-2025 ECG COMPLETE ECG COMPLETE ECG Routine Nonrheumatic aortic valve stenosis Aortic valve disorder 1 Occurrences starting 01/08/2024 until 01/07/2025 [facility] Comment on above: 1 Occurrences starting 01/08/2024 until 01/07/2025 End: 04-15-2025 ECG COMPLETE ECG COMPLETE ECG Routine Nonrheumatic aortic valve stenosis Aortic valve disorder 1 Occurrences starting 04/15/2024 until 04/15/2025 [facility] Work Phone: Comment on above: 1 Occurrences starting 04/15/2024 until 04/15/2025 End: 05-02-2025 ECG COMPLETE ECG COMPLETE ECG Routine Nonrheumatic aortic valve stenosis 1 Occurrences starting 05/02/2024 until 05/02/2025 [facility] Work Phone: Comment on above: 1 Occurrences starting 05/02/2024 until 05/02/2025 End: 08-26-2024 ECHO LIMITED ECHO LIMITED Cardiology Routine Nonrheumatic aortic valve stenosis Mitral valve stenosis, non-rheumatic Essential hypertension Pericardial effusion (noninflammatory) 1 Occurrences starting 08/27/2023 until 08/26/2024 [facility] Work Phone: Comment on above: 1 Occurrences starting 08/27/2023 until 08/26/2024 End: 08-12-2022 Echocardiography ECHO Cardiology Routine Aortic stenosis with bicuspid valve Essential hypertension 1 Occurrences starting 08/12/2021 until 08/12/2022 [facility] Work Phone: Comment on above: 1 Occurrences starting 08/12/2021 until 08/12/2022 End: 08-30-2023 Echocardiography ECHO Cardiology Routine Aortic stenosis with bicuspid valve 1 Occurrences starting 08/29/2022 until 08/30/2023 [facility] Work Phone: Comment on above: 1 Occurrences starting 08/29/2022 until 08/30/2023 End: 01-07-2025 Echocardiography ECHO Cardiology Routine Nonrheumatic aortic valve stenosis Aortic valve disorder 1 Occurrences starting 01/08/2024 until 01/07/2025 [facility] Comment on above: 1 Occurrences starting 01/08/2024 until 01/07/2025 Erythrocyte mean corpuscular volume determination [facility] Erythrocyte mean corpuscular volume determination [facility] Glucose [Mass/volume ] in Serum or Plasma [facility] Glucose [Mass/volume ] in Serum or Plasma [facility] Glucose [Mass/volume ] in Serum or Plasma [facility] Glucose [Mass/volume ] in Serum or Plasma [facility] Glucose [Mass/volume ] in Serum or Plasma [facility] Hematocrit [Volume Fraction] of Blood [facility] Hematocrit [Volume Fraction] of Blood [facility] Hemoglobin [Mass/vol ume] in Blood [facility] Hemoglobin [Mass/vol ume] in Blood [facility] Hemoglobin [Presence ] in Urine [facility] Histoplasma capsulat um Ab [Presence] in Serum by Immune diffusion (ID) HISTOPLASMA AB ID Lab Routine Disseminated histoplasmosis Encounter for long-term (current) use of antibiotics 08/30/2023 1:14 PM EDT [facility] INR in Blood by Coagulation assay [facility] INR in Blood by Coagulation assay [facility] INR in Blood by Coagulation assay [facility] INR in Blood by Coagulation assay [facility] INR in Blood by Coagulation assay [facility] INR in Blood by Coagulation assay [facility] INR in Blood by Coagulation assay [facility] INR in Blood by Coagulation assay [facility] INR in Blood by Coagulation assay [facility] INR in Blood by Coagulation assay [facility] End: 10-27-2022 INR in Platelet poor plasma by Coagulation assay INR (POC) Lab Routine Personal history of DVT (deep vein thrombosis) Once per month for 99 Occurrences starting 11/09/2021 until 10/27/2022 [facility] Work Phone: Comment on above: Once per month for 99 Occurrences starti ng 11/09/2021 until 10/27/2022 End: 11-10-2023 INR in Platelet poor plasma by Coagulation assay INR (POC) Lab Routine Personal history of DVT (deep vein thrombosis) Once per month for 99 Occurrences starting 11/09/2022 until 11/10/2023 [facility] Work Phone: Comment on above: Once per month for 99 Occurrences starti ng 11/09/2022 until 11/10/2023 End: 11-14-2024 INR in Platelet poor plasma by Coagulation assay INR (POC) Lab Routine Personal history of DVT (deep vein thrombosis) Once per month for 99 Occurrences starting 11/15/2023 until 11/14/2024 [facility] Work Phone: Comment on above: Once per month for 99 Occurrences starti ng 11/15/2023 until 11/14/2024 Leukocytes [#/volume ] in Blood [facility] Leukocytes [#/volume ] in Blood [facility] End: 03-14-2022 LIPID PANEL BASIC LIPID PANEL BASIC Lab Routine Essential hypertension 1 Occurrences starting 03/14/2021 until 03/14/2022 [facility] Work Phone: Comment on above: 1 Occurrences starting 03/14/2021 until 03/14/2022 End: 02-06-2025 LUNG DIFFUSION CAPACITY (DLCO) LUNG DIFFUSION CAPACITY (DLCO) PFT Routine Nonrheumatic aortic valve stenosis 1 Occurrences starting 01/08/2024 until 02/06/2025 [facility] Comment on above: 1 Occurrences starting 01/08/2024 until 02/06/2025 LUNG DIFFUSION CAPAC ITY (DLCO) LUNG DIFFUSION CAPACITY (DLCO) PFT Routine Nonrheumatic aortic valve stenosis 03/25/2024 9:[address] [facility] Work Phone: End: 11-26-2023 SABINO SCREENING SABINO SCREENING Radiology Routine Encounter for screening mammogram for breast cancer 1 Occurrences starting 10/27/2022 until 11/26/2023 [facility] Work Phone: Comment on above: 1 Occurrences starting 10/27/2022 until 11/26/2023 End: 11-26-2023 SABINO SCREENING W ALIZE SABINO SCREENING W ALIZE Radiology Routine Encounter for screening mammogram for breast cancer 1 Occurrences starting 10/27/2022 until 11/26/2023 [facility] Work Phone: Comment on above: 1 Occurrences starting 10/27/2022 until 11/26/2023 Mean corpuscular hemoglobin concentration determination [facility] Mean corpuscular hemoglobin concentration determination [facility] Mean corpuscular hemoglobin determination [facility] Mean corpuscular hemoglobin determination [facility] Measurement of keton es in urine using dipstick [facility] Measurement of renal function [facility] Measurement of renal function [facility] Measurement of renal function [facility] Measurement of renal function [facility] Measurement of renal function [facility] Microscopic urinalysis [facility] Microscopic urinalysis [facility] Neutrophil count [facility] Neutrophil count [facility] Neutrophil percent differential count [facility] Neutrophil percent differential count [facility] Organism count, microscopic method [facility] Patient Education [facility] Work Phone: Patient referral [facility] Work Phone: pH of Urine [facility] Platelets [#/volume] in Blood [facility] Platelets [#/volume] in Blood [facility] Potassium [Moles/vol ume] in Serum or Plasma [facility] Potassium [Moles/vol ume] in Serum or Plasma [facility] Potassium [Moles/vol ume] in Serum or Plasma [facility] Potassium [Moles/vol ume] in Serum or Plasma [facility] Potassium measurement [facility] End: 10-27-2022 PT panel - Platelet poor plasma by Coagulation assay PROTHROMBIN TIME/PT Lab STAT Personal history of DVT (deep vein thrombosis) Once per month for 99 Occurrences starting 11/09/2021 until 10/27/2022 [facility] Work Phone: Comment on above: Once per month for 99 Occurrences starti ng 11/09/2021 until 10/27/2022 End: 11-09-2023 PT panel - Platelet poor plasma by Coagulation assay PROTHROMBIN TIME/PT Lab STAT Personal history of DVT (deep vein thrombosis) Once per month for 99 Occurrences starting 11/09/2022 until 11/09/2023 [facility] Work Phone: Comment on above: Once per month for 99 Occurrences start ng 11/09/2022 until 11/09/2023 End: 11-14-2024 PT panel - Platelet poor plasma by Coagulation assay PROTHROMBIN TIME Lab STAT Personal history of DVT (deep vein thrombosis) Once per month for 99 Occurrences starting 11/15/2023 until 11/14/2024 [facility] Comment on above: [facility] until 11/14/2024 Red blood cell count [facility] Red blood cell count [facility] Red cell distributio n width determination [facility] Red cell distributio n width determination [facility] Serum chloride measurement [facility] Sodium [Moles/volume ] in Serum or Plasma [facility] Sodium [Moles/volume ] in Serum or Plasma [facility] Sodium [Moles/volume ] in Serum or Plasma [facility] Sodium [Moles/volume ] in Serum or Plasma [facility] Sodium measurement [facility] Specific gravity of Urine [facility] End: 02-06-2025 SPECT Heart for infarct W [id number] PYP IV NM SPECT/CT CARDIAC AMYLOID Radiology Routine Nonrheumatic aortic valve stenosis 1 Occurrences starting 01/08/2024 until 02/06/2025 [facility] Comment on above: 1 Occurrences starting 01/08/2024 until 02/06/2025 End: 02-06-2025 SPIROMETRY BASELINE ONLY SPIROMETRY BASELINE ONLY PFT Routine Nonrheumatic aortic valve stenosis 1 Occurrences starting 01/08/2024 until 02/06/2025 [facility] Work Phone: Comment on above: 1 Occurrences starting 01/08/2024 until 02/06/2025 SPIROMETRY BASELINE ONLY SPIROME TRY BASELINE ONLY PFT Routine Nonrheumatic aortic valve stenosis 03/25/2024 9:[address] [facility] Work Phone: Total protein measurement [facility] Urea nitrogen [Mass/volume] in Serum or Plasma [facility] Urea nitrogen [Mass/volume] in Serum or Plasma [facility] Urea nitrogen [Mass/volume] in Serum or Plasma [facility] Urea nitrogen [Mass/volume] in Serum or Plasma [facility] Urea nitrogen [Mass/volume] in Serum or Plasma [facility] Urinalysis, blood, qualitative [facility] Urine dipstick for glucose [facility] Urine dipstick for leukocyte esterase [facility] Urine dipstick for nitrite [facility] Urine dipstick for protein [facility] Urine examination [facility] Urine microscopy: epithelial cells [facility] Urine microscopy: epithelial cells [facility] Urine microscopy: re d cells [facility] Urine Microscopy: wh ite cells [facility] Urobilinogen [Presen ce] in Urine [facility] End: 07-09-2024 US Lower extremity vein US LEG VEIN DVT UNL VAS LAB Vascular Lab STAT Acute pain of right knee Pain and swelling of right lower leg 1 Occurrences starting 07/10/2023 until 07/09/2024 [facility] Work Phone: Comment on above: 1 Occurrences starting 07/10/2023 until 07/09/2024 White blood cell count [facility] End: 02-06-2025 XR Chest PA and Lateral XR CHEST 2V FRONTAL/LAT Radiology Routine Nonrheumatic aortic valve stenosis 1 Occurrences starting 01/08/2024 until 02/06/2025 [facility] Comment on above: 1 Occurrences starting 01/08/2024 until 02/06/2025 End: 05-15-2025 XR Chest PA and Lateral XR CHEST 2V FRONTAL/LAT Radiology Routine Nonrheumatic aortic valve stenosis Aortic valve disorder 1 Occurrences starting 04/15/2024 until 05/15/2025 [facility] Comment on above: 1 Occurrences starting 04/15/2024 until 05/15/2025 End: 08-16-2024 XR Knee - right 4 Views XR KNEE GENERAL 4V AP BOTH/PA BOTH/LAT/MERC RIGHT Radiology Routine Right knee pain, unspecified chronicity 1 Occurrences starting 07/18/2023 until 08/16/2024 [facility] Work Phone: Comment on above: 1 Occurrences starting 07/18/2023 until 08/16/2024 End: 08-16-2024 XR Lower extremity - bilateral AP W standing XR LEG FRONTAL HIP TO ANKLE MECHANICAL AXIS Radiology Routine Right knee pain, unspecified chronicity 1 Occurrences starting 07/18/2023 until 08/16/2024 [facility] Comment on above: 1 Occurrences starting 07/18/2023 until 08/16/2024 [facility] Immunizations Immunization Date Immunization Notes Care Provider Galindo leyva 11-22-2023 influenza, high dose seasonal, preservative-free Geno Hart MD Work Phone: [facility] 11-22-2023 influenza virus vacc ine, unspecified formulation Geno Hart MD Work Phone: [facility] 08-01-2023 respiratory syncytia l virus (RSV) vaccine, adjuvanted (AREXVY) Ilda Miller RN Work Phone: [facility] 08-01-2023 zoster vaccine recombinant Claudine Durán MD Work Phone: [facility] 01-04-2023 COVID-19 vaccine, ag e 12+ yr, season (PFIZER-BIONTECH) Jimbo Swanson [employer].SALES INCENTIVE ANALYST Work Phone: [facility] Work Phone: 10-27-2022 influenza (HD-IIV4) vaccine, age 65+ yr, high dose, quadrivalent, PF (FLUZONE HIGH-DOSE) Jimbo Swanson [employer]KER.SALES INCENTIVE ANALYST Work Phone: [facility] Work Phone: 10-27-2022 influenza virus vacc ine, unspecified formulation Anticoag Wstr Work Phone: [facility] 11-18-2021 influenza, high dose seasonal, preservative-free Ilda Miller RN Work Phone: [facility] 11-10-2021 COVID-19 booster vaccine, age 12+ yr, bivalent (PFIZER-BIONTECH) Jimbo Swanson LEATH[employer] MAKER.SALES INCENTIVE ANALYST Work Phone: [facility] Work Phone: 11-10-2021 influenza, high-dose , quadrivalent vaccine (FLUZONE HIGH DOSE QUADRIVALENT) Jimbo Swanson APRN.SALES INCENTIVE ANALYST Work Phone: [facility] Work Phone: 07-11-2021 Covid (Pfizer) [facility] Work Phone: [facility] 07-11-2021 COVID-19 vaccine, ag e 12+ yr (PFIZER-BIONTECH - ARIAS TOP) Antico Wstr Work Phone: [facility] 11-21-2020 COVID-19 original vaccine, age 12+ yr, monovalent (PFIZER-BIONTECH - PURPLE TOP) Claudine Durán MD Work Phone: [facility] 11-21-2020 influenza, high dose seasonal, preservative-free Ilda Miller RN Work Phone: [facility] 11-09-2020 COVID-19 vaccine, ag e 12+ yr (PFIZER-BIONTECH - PURPLE TOP) [facility] 11-09-2020 influenza, high-dose , quadrivalent vaccine (FLUZONE HIGH DOSE QUADRIVALENT) [facility] Work Phone: 05-13-2020 COVID-19 vaccine, ag e 12+ yr (PFIZER-BIONTECH - PURPLE TOP) [facility] Work Phone: 04-22-2020 COVID-19 vaccine, ag e 12+ yr (PFIZER-BIONTECH - PURPLE TOP) [facility] Work Phone: 11-06-2019 influenza, high-dose , quadrivalent vaccine (FLUZONE HIGH DOSE QUADRIVALENT) [facility] Work Phone: 11-06-2019 tetanus and diphther ia toxoids, adsorbed, preservative free, for adult use (2 Lf of tetanus toxoid and 2 Lf of diphtheria toxoid) Dr. Claudine Durán Work Phone: [facility] 11-06-2019 tetanus and diphther ia toxoids, adsorbed, preservative free, for adult use (5 Lf of tetanus toxoid and 2 Lf of diphtheria toxoid) [facility] Work Phone: 11-03-2019 influenza, high dose seasonal, preservative-free Ilda Miller RN Work Phone: [facility] 11-28-2018 zoster vaccine recombinant [facility] 11-25-2018 influenza, high dose seasonal, preservative-free Ilda Miller RN Work Phone: [facility] 10-26-2018 Influenza, high dose seasonal Dr. Claudine Durán MD Work Phone: [facility] 10-26-2018 influenza, high dose seasonal, preservative-free [facility] 07-23-2018 zoster vaccine recombinant [facility] 11-27-2017 Influenza, high dose seasonal Dr. Claudine Durán MD Work Phone: [facility] 11-27-2017 influenza, high dose seasonal, preservative-free [facility] 02-07-2017 influenza virus vacc ine, live, attenuated, for intranasal use Ilda Miller RN Work Phone: [facility] 02-07-2017 pneumococcal polysaccharide vaccine, 23 ravi Durán MD Work Phone: [facility] 01-31-2017 Influenza, high dose seasonal Dr. Claudine Durán MD Work Phone: [facility] 01-31-2017 influenza, high dose seasonal, preservative-free [facility] 12-13-2016 pneumococcal polysaccharide vaccine, Lachelle Durán MD Work Phone: [facility] 11-28-2016 pneumococcal polysaccharide vaccine, 23 ravi Durán MD Work Phone: [facility] 12-13-2015 influenza, high dose seasonal, preservative-free [facility] 11-10-2014 Influenza, high dose seasonal Dr. Claudine Durán MD Work Phone: [facility] 11-10-2014 influenza, high dose seasonal, preservative-free [facility] 03-30-2014 pneumococcal conjuga te vaccine, 13 valent [facility] 12-08-2013 influenza virus vacc ine, live, attenuated, for intranasal use Ilda Miller RN Work Phone: [facility] 12-08-2013 pneumococcal conjuga te vaccine, 7 valent Ilda Miller RN Work Phone: [facility] 12-08-2013 pneumococcal polysaccharide vaccine, 23 valent Claudine Durán MD Work Phone: [facility] 11-24-2013 influenza, injectabl e, quadrivalent, preservative free Dr. Claudine Durán Work Phone: [facility] 11-24-2013 influenza, seasonal, injectable [facility] 03-24-2013 pneumococcal polysaccharide vaccine, 23 valent [facility] 11-18-2012 influenza virus vacc ine, unspecified formulation [facility] Work Phone: 11-10-2011 influenza virus vacc ine, unspecified formulation [facility] 11-23-2010 influenza virus vacc ine, unspecified formulation [facility] 10-07-2009 tetanus toxoid, redu amarilis diphtheria toxoid, and acellular pertussis vaccine, adsorbed [facility] 10-29-2008 influenza virus vacc ine, unspecified formulation [facility] 01-10-2008 influenza virus vacc ine, whole virus Ilda Miller RN Work Phone: [facility] 01-10-2008 influenza, injectabl e, quadrivalent, preservative free Dr. Claudine Durán Work Phone: [facility] 07-09-2007 tuberculin skin test ; purified protein derivative solution, intradermal Jimbo Swanson LEATH[employer]KER.SALES INCENTIVE ANALYST Work Phone: [facility] 06-24-2007 tuberculin skin test ; purified protein derivative solution, intradermal Jimbo Swanson LEATHER [employer] MAKER.SALES INCENTIVE ANALYST Work Phone: [facility] 09-22-1999 diphtheria and tetan us toxoids, adsorbed for pediatric use [facility] Work Phone: Payers Date Payer Category Payer Self-pay [id number] 2021 Medicare AETNA MEDICARE A ETNA MEDICARE PPO [id number] 2021-Present [phone] [address] [place] [address] PPO [id number] 2021 Medicare AETNA MEDICARE A ETNA MEDICARE PPO [id number] 2021-Present [phone] [address] [place] [address] PPO [id number] 2021 Medicare (Managed Care) AETNA ME DICARE [id number] 2021 Private Health Insurance [id number] 2011 Unknown [id number] 1945 Unknown [id number]. 668 Medicare [id number] Private Health Insurance Unknown [id number]. 462 Unknown [id number] .[id number]. 462 Unknown [id number] 2.16.840.1.955176.3.579.2. 462 Unknown [id number] 2.16.840.1.385142.3.579.2. 462 Unknown [id number] 2.16.840.1.362120.3.579.2. 462 Unknown [id number] 2.16.840.1.640393.3.579.2. 462 Unknown [id number] 2.16.840.1.704662.3.579.2. 462 Unknown [id number] 2.16.840.1.108749.3.579.2. 462 Unknown [id number] 2..840.1.123253.3.579.2. 462 Unknown [id number] 2.16.840.1.102588.3.579.2. 462 Unknown [id number] 2.840.1.511611.3.579.2. 462 Unknown [id number] 2.840.1.434237.3.579.2. 462 Unknown [id number] 2.840.1.711577.3.579.2. 462 Unknown [id number] 2..840.1.452250.3.579.2. 462 Unknown [id number] 2.16.840.1.784671.3.579.2. 462 Unknown [id number] 2.840.1.862374.3.579.2. 462 Unknown [id number] 2.16840.1.217124.3.579.2. 462 Unknown [id number] 2.16.840.1.459044.3.579.2. 462 Unknown [id number] 2.16.840.1.079826.3.579.2. 462 Unknown [id number] 2.16.840.1.063673.3.579.2. 462 Unknown [id number] 2.840.1.196107.3.579.2. 462 Unknown [id number] 2.16.840.1.084639.3.579.2. 462 Unknown [id number] 2.16.840.1.712431.3.579.2. 462 Unknown [id number] 2.16.840.1.136324.3.579.2. 462 Social History Date Type Detail Facility Start: 08-28-2019 End: 08-23-2024 Tobacco smoking status NHIS Ex-smoker [facility] Start: 02-19-1979 End: 02-19-1989 History of tobacco use Current smoker [facility] Start: 02-19-1979 End: 02-19-1989 History of tobacco use Cigarette Smoker [facility] Start: 05-03-2021 End: 07-22-2024 Alcohol intake Current drinker of alcohol (finding) [facility] Start: 11-28-2019 End: 03-06-2022 History SDOH Alcohol Frequency 2 [facility] Start: 11-28-2019 End: 03-06-2022 History SDOH Alcohol Std Drinks 1 [facility] Start: 03-31-2019 End: 03-06-2022 History SDOH Social Connections Jew 3 [facility] Start: 03-31-2019 End: 03-06-2022 History SDOH Social Connections Living 4 [facility] Start: 07-28-2019 End: 03-06-2022 History SDOH Physical Activity DPW 5 [facility] Start: 03-31-2019 Education 18 [facility] Start: 08-28-2019 End: 11-10-2021 Tobacco Comment Late heavy smoker. [facility] Start: 1945 Sex Assigned At Female [facility] Start: 05-02-2021 End: 12-31-2021 Exposure to SARS-CoV-2 (event) Not sure [facility] Work Phone: Start: 12-11-2017 End: 04-05-2023 Tobacco smoking status MTIS Unknown if ever smoked [facility] Start: 08-28-2019 End: 06-22-2022 Cigarettes smoked current (pack per day) - Reported 1 [facility] Start: 08-28-2019 End: 10-11-2023 Tobacco use and exposure Smokeless tobacco non-user [facility] Start: 03-06-2022 End: 06-22-2022 Social connection and isolation panel [facility] Do you belong to any clubs or organizations such as mormonism groups, unions, fraternal or athletic groups, or school groups? Yes [facility] Are you now , , , , never or living with a partner? [facility] How often to you hav e a drink containing alcohol? Monthly or less [facility] How many standard dr inks containing alcohol do you have on a typical day? 1 or 2 [facility] How often do you hav e 6 or more drinks on 1 occasion? Never [facility] How hard is it for y ou to pay for the very basics like food, housing, medical care, and heating Not hard at all [facility] Do you feel stress - tense, restless, nervous, or anxious, or unable to sleep at night because your mind is troubled all the time - these days [OSQ] Not at all [facility] (I/We) worried eileen de (my/our) food would run out before (I/we) got money to buy more. Never true [facility] In the past 12 month s, was there a time when you were not able to pay the mortgage or rent on time? No [facility] Start: 03-04-2019 Gender identity Identifies as female gender (finding) [facility] Start: 03-04-2019 Sexual orientation Heterosexual (finding) [facility] Do you feel stress - tense, restless, nervous, or anxious, or unable to sleep at night because your mind is troubled all the time - these days [OSQ] To some extent [facility] How hard is it for y ou to pay for the very basics like food, housing, medical care, and heating Not very hard [facility] Start: 2024 Sex Female (finding) [facility] Medical Equipment Procedure Code Equipment Code Equipment Origin al Text Equipment Identifier Dates Navitor With Radiopaque Markers, 25mm - [id number] Start: 05-02-2024 Goals Date Patient Goal [...] health Functional Status Date Assessment Result Facility 08-27-2024 Functional status Ambulates [facility] Work Phone: 07-05-2025 Functional status Up ad rupal [facility] Work Phone: 05-03-2024 Are you deaf, or do you have serious difficulty hearing No 05/03/2024 11:03 AM Doreen Kohelr, PAULA No [facility] 05-03-2024 Are you blind, or do you have serious difficulty seeing, even when wearing glasses No 05/03/2024 11:03 AM Doreen Kohler, PAULA No [facility] 05-03-2024 Do you have serious difficulty walking or climbing stairs No 05/03/2024 11:03 AM Doreen Kohler, PAULA No [facility] 05-03-2024 Do you have difficul ty dressing or bathing No 05/03/2024 11:03 AM Doreen Kohler, PAULA No [facility] 05-03-2024 Because of a physica l, mental, or emotional condition, do you have difficulty doing errands alone such as visiting a physician's office or shopping No 05/03/2024 11:03 AM Doreen Kohler, PAULA No [facility] 03-24-2024 Are you deaf, or do you have serious difficulty hearing No 03/24/2024 3:46 PM Karl Browne RN No [facility] 03-24-2024 Are you blind, or do you have serious difficulty seeing, even when wearing glasses No 03/24/2024 3:46 PM Karl Browne RN No [facility] 03-24-2024 Do you have serious difficulty walking or climbing stairs No 03/24/2024 3:46 PM Karl Browne RN No [facility] 03-24-2024 Do you have difficul ty dressing or bathing No 03/24/2024 3:46 PM Karl Browne RN No [facility] 03-24-2024 Because of a physica l, mental, or emotional condition, do you have difficulty doing errands alone such as visiting a physician's office or shopping No 03/24/2024 3:46 PM Karl Browne RN No [facility] 04-30-2023 Functional status Ambulates;Bedr est;Bathro [facility] Work Phone: 04-16-2023 Functional status Ambulates [facility] Work Phone: 04-05-2023 Functional status Ambulates;Bath room Privilege [facility] Work Phone: 03-27-2023 Functional status Up ad rupal [facility] Work Phone: Mental Status Date Assessment Result Facility 08-27-2024 Cognitive function Voice/Name [facility] Work Phone: 08-23-2024 Cognitive function Voice/Name [facility] Work Phone: 05-03-2024 Because of a physica l, mental, or emotional condition, do you have serious difficulty concentrating, remembering, or making decisions No 05/03/2024 11:03 AM Doreen Kohler, PAULA No [facility] 03-24-2024 Because of a physica l, mental, or emotional condition, do you have serious difficulty concentrating, remembering, or making decisions No 03/24/2024 3:46 PM EST Karl Muniz, PAULA No [facility] 04-30-2023 Cognitive function Voice/Name [facility] Work Phone: 04-24-2023 Cognitive function Appropriate [facility] Work Phone: 04-16-2023 Cognitive function Voice/Name;Touch/Shaki ng [facility] Work Phone: 04-05-2023 Cognitive function Voice/Name [facility] Work Phone: 03-31-2023 Cognitive function Level Of Cons ciousness Awake;Alert;Appropriate;Fol lows Commands [facility] Work Phone: 03-27-2023 Cognitive function Appropriate;Cooperativ e [facility] Work Phone: 03-26-2023 Cognitive function Voice/Name [facility] Work Phone: Clinical Notes 03-08-2018 to 08-27-2024 Note Date & Type Note Facility 08-27-2024 Discharge summary Note Date/Time August 27, 2024 12:09pm [facility] Medical Records Department [address] [place] [address] Transfer to [facility] MR#: [id number] Acct: [id number] Name: HAYDEE BUSTAMANTE Rep #:[id number] : 1945 79 From: Jasmyn Chan DO PCP: Dr. Claudine Durán MD Status:[facility] Certification of patient admission REQUIRED AT TIME OF ADMISSION. I CERTIFY THAT POST-HOSPITAL ECF SERVICES ARE REQUIRED TO BE GIVEN ON AN IN-PATIENT BASIS BECAUSE OF THE ABOVE NAMED PATIENT'S NEED FOR JAIL CARE ON A CONTINUING BASIS FOR THE CONDITION(S) FOR WHICH HE/SHE WAS RECEIVING IN-PATIENT HOSPITAL SERVICES PRIOR TO HIS/HER TRANSFER TO THE ECF. 08/27/24 1209<Electronically signed by Jasmyn Chan DO> Diet Diet Order/Speech Therapy: INPATIENT Hospital Diet / Speech Therapy Order(s) 08/23/24 11:43 Diet: Regular - General Food consistency:: Regular Liquid Consistency:: Regular/Thin Routine Orders/Code Status Code Status: Full Code DC O2, CPAP, BIPAP needs Home O2 Discharge instructions: No Wound(s) left wrist: Wound Type: Splinted and wrapped left outer eye: Wound Type: Abrasion Problem/Diagnosis (1) Declining functional status: Status: Acute Code(s): R53.81 - Other malaise (2) Closed fracture of distal end of left radius: Status: Acute Code(s): S52.502A - Unspecified fracture of the lower end of left radius, initial encounter for closed fracture Plan 1. Acute on chronic debility secondary to multiple medical problems and acute left wrist fracture-PT and OT will continue, again we are awaiting approval for the patient to go to a skilled facility for skilled services #2 chronic use of 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-patient's INR on admission was subtherapeutic at 1.2, INR will be monitored and warfarin will be adjusted if needed-patient's INR today was 1.7 again, I will administer extra warfarin and recheck the INR tomorrow #3 chronic obstructive pulmonary disease-patient is on aerosol treatments #4 valvular heart disease-patient underwent a TAVR in April of this year #5 Past history of pulmonary emblosm #6 Rheumatoid arthritis Total clinical time spent by myself addressing the patient's medical issues, reviewing all of her data, and collaborating with patient's care team: 35 minutes Allergies/Procedures Done in Hospital Allergies Penicillins Allergy (Severe, Verified 06/20/24 10:10) Anaphylaxis Type of Care/Length of Stay Estimated LOS: Convalescent Care Less Than 30 days Type of Care Needed: Skilled Rehab Potential: Good Prognosis: Good Additional Orders/Day of Discharge Day of Discharge: 08/27/24 Discharge Plan Admission Admit Date/Time: 08/23/24 10:24 Primary Reason for Your Visit: Generalized weakness, left wrist fracture Attending Provider: Jasmyn Chan Primary Care Provider: Claudine Durán Consulting Providers: Burak Amanda; Erasmo House Discharge Orders/Prescriptions Prescriptions: New gabapentin 300 mg Capsule 300 mg PO BID Qty: 0 0RF oxycodone 5 mg Tablet 2.5 - 5 mg PO Q4H PRN PRN (Reason: Pain Score 4-10) 2 Days Qty: 6 0RF warfarin [Jantoven] 6 mg Tablet 6 mg PO DINNER Qty: 0 0RF Continued fluticasone propion-salmeterol [Wixela Inhub] 250-50 mcg/dose blister with device 1 inh inhalation BID sulfasalazine 500 mg tablet,delayed release (DR/EC) 1 g PO BID methotrexate sodium 2.5 mg tablet 10 mg PO QWEEK Patient Comments: takes on sat. albuterol sulfate 90 mcg/actuation HFA aerosol inhaler 2 puff inhalation Q4H PRN PRN (Reason: shortness of breath or wheezing) cholecalciferol (vitamin D3) 25 mcg (1,000 unit) capsule 25 mcg PO QDAY folic acid 0.8 mg capsule 0.8 mg PO QDAY acetaminophen 500 mg tablet 1,000 mg PO TID ferrous sulfate 325 mg (65 mg iron) tablet 325 mg PO QDAY clindamycin HCl 300 mg capsule 600 mg PO ONCE Qty: 2 3RF Rx Instructions: Take 2 capsules by mouth 1 hour prior to dental appointments. PreserVision AREDS 2,148 mcg-113 mg-45 mg-17.4mg tablet 2 tab PO BID Rx Instructions: administer with AM and PM meals multivitamin [Daily Multi-Vitamin] Tablet 1 tab PO DAILY gabapentin 300 mg Capsule 300 mg PO Q12 Qty: 0 0RF potassium chloride 20 mEq Tablet,Er Particles/Crystals 20 meq PO BIDCM Qty: 0 0RF furosemide 20 mg tablet 20 mg PO DAILY PRN (Reason: edema) Spiriva Respimat 2.5 mcg/actuation mist 2 puff INHALATION DAILY fluticasone propionate 50 mcg/actuation spray,suspension 1 spray INTRANASAL DAILY diclofenac sodium [Voltaren Arthritis Pain] 1 % gel 4 g topical BID PRN PRN (Reason: knee pain) Qty: 100 0RF folic acid 1 mg tablet 1 mg PO DAILY warfarin 1 mg tablet 5 mg PO DAILY Rx Instructions: 5 mg and ., 6 mg every other day warfarin 5 mg tablet See Rx Instructions .ROUTE .COMPLEX Rx Instructions: 6mg orally Sun/Sun/Sun/Sun/sun, 5 mg orally / metoprolol succinate 25 mg tablet extended release 24 hr 25 mg PO QDAY Qty: 30 11RF Discontinued omega 7-bef-kio-fish oil [Fish Oil] 1,200 (144-216) mg capsule 1 cap PO DAILY Patient Comments: ON HOLD FOR COLONOSCOPY Referrals / Follow Up: Claudine Durán MD [Primary Care Provider] - Burak Amanda MD [Med Staff - Active Staff] - See Referral Note (in one week-call to schedule appointment) Disposition Disposition (needs filled in before D/C Order can be placed): [facility] 08/27/24 1209 <Electronically signed by Jasmyn Chan DO> Cosigner Signature (if applicable): CC: Dr. Claudine Durán MD; Dr. Erasmo House MD; Dr. Burak Amanda MD ~ [facility] Work Phone: [phone]) 287-827607-09-2025 Hospital Discharge instructionsAdditional Instructions PT/INR daily times 3 days starting 08/28/24, maintain INR 2-3 Date of Discharge: 08/27/24[facility] Work Phone: [phone]) [phone] Discharge summary [facility] Medical Records Department [address] [place] [address] Transfer to [facility] MR#: [id number] Acct: [id number] Name: HAYDEE BUSTAMANTE Rep #:[id number] : 1945 79 From: Jasmyn Chan DO PCP: Dr. Claudine Durán MD Status:[facility] Certification of patient admission REQUIRED AT TIME OF ADMISSION. I CERTIFY THAT POST-HOSPITAL ECF SERVICES ARE REQUIRED TO BE GIVEN ON AN IN-PATIENT BASIS BECAUSE OF THE ABOVE NAMED PATIENT'S NEED FOR JAIL CARE ON A CONTINUING BASIS FOR THE CONDITION(S) FOR WHICH HE/SHE WAS RECEIVING IN-PATIENT HOSPITAL SERVICES PRIOR TO HIS/HER TRANSFER TO THE ECF. 08/27/24 1209 Diet Diet Order/Speech Therapy: INPATIENT Hospital Diet / Speech Therapy Order(s) 08/23/24 11:43 Diet: Regular - General Food consistency:: Regular Liquid Consistency:: Regular/Thin Routine Orders/Code Status Code Status: Full Code DC O2, CPAP, BIPAP needs Home O2 Discharge instructions: No Wound(s) left wrist: Wound Type: Splinted and wrapped left outer eye: Wound Type: Abrasion Problem/Diagnosis (1) Declining functional status: Status: Acute Code(s): R53.81 - Other malaise (2) Closed fracture of distal end of left radius: Status: Acute Code(s): S52.502A - Unspecified fracture of the lower end of left radius, initial encounter for closed fracture Plan 1. Acute on chronic debility secondary to multiple medical problems and acute left wrist fracture-PT and OT will continue, again we are awaiting approval for the patient to go to a skilled facility for skilled services #2 chronic use of 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-patient's INR on admission was subtherapeutic at 1.2, INR will be monitored and warfarin will be adjusted if needed-patient's INR today was 1.7 again, I will administer extra warfarin and recheck the INR tomorrow #3 chronic obstructive pulmonary disease-patient is on aerosol treatments #4 valvular heart disease-patient underwent a TAVR in April of this year #5 Past history of pulmonary emblosm #6 Rheumatoid arthritis Total clinical time spent by myself addressing the patient's medical issues, reviewing all of her data, and collaborating with patient's care team: 35 minutes Allergies/Procedures Done in Hospital Allergies Penicillins Allergy (Severe, Verified 06/20/24 10:10) Anaphylaxis Type of Care/Length of Stay Estimated LOS: Convalescent Care Less Than 30 days Type of Care Needed: Skilled Rehab Potential: Good Prognosis: Good Additional Orders/Day of Discharge Day of Discharge: 08/27/24 Discharge Plan Admission Admit Date/Time: 08/23/24 10:24 Primary Reason for Your Visit: Generalized weakness, left wrist fracture Attending Provider: Jasmyn Chan Primary Care Provider: Claudine Durán Consulting Providers: Burak Amanda; Erasmo House Discharge Orders/Prescriptions Prescriptions: New gabapentin 300 mg Capsule 300 mg PO BID Qty: 0 0RF oxycodone 5 mg Tablet 2.5 - 5 mg PO Q4H PRN PRN (Reason: Pain Score 4-10) 2 Days Qty: 6 0RF warfarin [Jantoven] 6 mg Tablet 6 mg PO DINNER Qty: 0 0RF Continued fluticasone propion-salmeterol [Wixela Inhub] 250-50 mcg/dose blister with device 1 inh inhalation BID sulfasalazine 500 mg tablet,delayed release (DR/EC) 1 g PO BID methotrexate sodium 2.5 mg tablet 10 mg PO QWEEK Patient Comments: takes on sat. albuterol sulfate 90 mcg/actuation HFA aerosol inhaler 2 puff inhalation Q4H PRN PRN (Reason: shortness of breath or wheezing) cholecalciferol (vitamin D3) 25 mcg (1,000 unit) capsule 25 mcg PO QDAY folic acid 0.8 mg capsule 0.8 mg PO QDAY acetaminophen 500 mg tablet 1,000 mg PO TID ferrous sulfate 325 mg (65 mg iron) tablet 325 mg PO QDAY clindamycin HCl 300 mg capsule 600 mg PO ONCE Qty: 2 3RF Rx Instructions: Take 2 capsules by mouth 1 hour prior to dental appointments. PreserVision AREDS 2,148 mcg-113 mg-45 mg-17.4mg tablet 2 tab PO BID Rx Instructions: administer with AM and PM meals multivitamin [Daily Multi-Vitamin] Tablet 1 tab PO DAILY gabapentin 300 mg Capsule 300 mg PO Q12 Qty: 0 0RF potassium chloride 20 mEq Tablet,Er Particles/Crystals 20 meq PO BIDCM Qty: 0 0RF furosemide 20 mg tablet 20 mg PO DAILY PRN (Reason: edema) Spiriva Respimat 2.5 mcg/actuation mist 2 puff INHALATION DAILY fluticasone propionate 50 mcg/actuation spray,suspension 1 spray INTRANASAL DAILY diclofenac sodium [Voltaren Arthritis Pain] 1 % gel 4 g topical BID PRN PRN (Reason: knee pain) Qty: 100 0RF folic acid 1 mg tablet 1 mg PO DAILY warfarin 1 mg tablet 5 mg PO DAILY Rx Instructions: 5 mg and ., 6 mg every other day warfarin 5 mg tablet See Rx Instructions .ROUTE .COMPLEX Rx Instructions: 6mg orally Sun/Sun/Sun/Sun/sun, 5 mg orally / metoprolol succinate 25 mg tablet extended release 24 hr 25 mg PO QDAY Qty: 30 11RF Discontinued omega 1-mvb-qyf-fish oil [Fish Oil] 1,200 (144-216) mg capsule 1 cap PO DAILY Patient Comments: ON HOLD FOR COLONOSCOPY Referrals / Follow Up: Claudine Durán MD [Primary Care Provider] - Burak Amanda MD [Med Staff - Active Staff] - See Referral Note (in one week- call to schedule appointment) Disposition Disposition (needs filled in before D/C Order can be placed): [facility] 08/27/24 1209 Cosigner Signature (if applicable): CC: Dr. Claudine Durán MD; Dr. Erasmo House MD; Dr. Burak Amanda MD ~ [facility]07-09-2025 [facility] Medical Records Department [address] [place] [address] Discharge Summary 08/27/24 1209 MR#: [id number] Acct: [id number] Name: HAYDEE BUSTAMANTE Rep #: [id number] : 1945 79 From: Jasmyn Chan DO PCP: Dr. Claudine Durán MD Status:DIS ADAIR Location: [facility] [id number] Providers Date of Admission: 08/23/24 Date of Discharge: 08/27/24 Primary Care Physician: Dr. Claudine Durán MD Consultations 08/23/24 11:42 Consult: Orthopedics Routine Consulting Provider: Burak Amanda Reason for Consult: left wrist fracture EMERGENT Consult: No MD Notified: Yes Date Notified: 08/23/24 Time Notified: 10:29 Method of Notification: ED Physician Initiated Reason For Visit: FALL Diagnosis Discharge Diagnosis (1) Declining functional status: Status: Acute Code(s): R53.81 - Other malaise (2) Closed fracture of distal end of left radius: Status: Acute Code(s): S52.502A - Unspecified fracture of the lower end of left radius, initial encounter for closed fracture Plan 1. Acute on chronic debility secondary to multiple medical problems and acute left wrist fracture- PT and OT will continue, again we are awaiting approval for the patient to go to a skilled facility for skilled services #2 chronic use of 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-patient's INR on admission was subtherapeutic at 1.2, INR will be monitored and warfarin will be adjusted if needed-patient's INR today was 1.7 again, I will administer extra warfarin and recheck the INR tomorrow #3 chronic obstructive pulmonary disease-patient is on aerosol treatments #4 valvular heart disease-patient underwent a TAVR in April of this year #5 Past history of pulmonary emblosm #6 Rheumatoid arthritis Total clinical time spent by myself addressing the patient's medical issues, reviewing all of her data, and collaborating with patient's care team: 35 minutes Medications at Discharge Home Medications multivitamin (Daily Multi-Vitamin tablet) 1 tab PO DAILY supplement 03/19/23 vitamins A,C,M-yzgs-eizppz 2,148 mcg-113 mg-45 mg-17.4 mg tablet (PreserVision AREDS) 2 tab PO BID eye health 03/19/23 gabapentin 300 mg capsule 300 mg PO Q12 nerve pain #0 caps 04/05/23 potassium chloride 20 mEq tablet,extended release(part/cryst) 20 meq PO BIDCM #0 tabs 04/27/23 fluticasone propionate 50 mcg/actuation nasal spray,suspension 1 spray intranasal DAILY 08/13/23 furosemide 20 mg tablet 20 mg PO DAILY PRN edema 08/13/23 tiotropium bromide 2.5 mcg/actuation mist for inhalation (Spiriva Respimat) 2 puff inhalation DAILY 08/13/23 diclofenac sodium 1 % topical gel (Voltaren Arthritis Pain) 4 g topical BID PRN PRN knee pain #100 grams 08/18/23 albuterol sulfate 90 mcg/actuation aerosol inhaler 2 puff inhalation Q4H PRN PRN shortness of breath or wheezing 06/13/24 cholecalciferol (vitamin D3) 25 mcg (1,000 unit) capsule 25 mcg PO QDAY 06/13/24 fluticasone 250 mcg-salmeterol 50 mcg/dose blistr powdr for inhalation (Wixela Inhub) 1 inh inhalation BID 06/13/24 folic acid 0.8 mg capsule 0.8 mg PO QDAY 06/13/24 methotrexate sodium 2.5 mg tablet 10 mg PO QWEEK 06/13/24 sulfasalazine 500 mg tablet,delayed release 1 g PO BID 06/13/24 acetaminophen 500 mg tablet 1,000 mg PO TID Pain Score 1-10 06/20/24 clindamycin HCl 300 mg capsule 600 mg (2 x 300 mg) PO ONCE #2 caps 06/20/24 ferrous sulfate 325 mg (65 mg iron) tablet 325 mg PO QDAY 06/20/24 metoprolol succinate 25 mg tablet,extended release 24 hr 25 mg PO QDAY #30 tabs 07/18/24 folic acid 1 mg tablet 1 mg PO DAILY 08/23/24 warfarin 1 mg tablet 5 mg PO DAILY 08/23/24 warfarin 5 mg tablet See Rx Instructions .Route .COMPLEX 08/23/24 gabapentin 300 mg capsule 300 mg PO BID #0 caps 08/27/24 oxycodone 5 mg tablet 2.5 mg (1/2 x 5 mg) PO Q4H PRN PRN Pain Score 4-10 20 days #30 tabs 08/27/24 oxycodone 5 mg tablet 5 mg PO Q4H PRN pain 20 days #60 tabs 08/27/24 warfarin 6 mg tablet (Jantoven) 6 mg PO DINNER #0 tabs 08/27/24 Hospital Course Operations None Procedures None Summary of Care Provided Minutes Spent on Discharge: 32 Hospital Course: This 79-year-old white female was seen in the emergency room at [facility] for evaluation of injuries sustained when she fell at home. Patient injured her left wrist as she used her left upper extremity to catch herself when she was falling, she had an abrasion on her face. Patient is taking warfarin chronically. 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 Patient finally used the telephone after she scooted herself around on the floor and called the squad to bring her in the hospital. Labs obtain urgency room included a CBC which was remarkable for hemoglobin of 11.3, INR was 1.2, chemistry profile was abnormal for BUN of 22. W (more content not included)...[facility] 08-26-2024 Progress note Author Jasmyn Chan [facility] Note Date/Time August 26, 2024 4:55p m [facility] Medical Records Department [address] [place] [address] Progress Note - Hospitalist 08/26/24 3004 MR#: [id number] Acct: [id number] Name: HAYDEE BUSTAMANTE Rep #:[id number] : 1945 79 From: Jasmyn Chan DO PCP: Dr. Claudine Durán MD Status:AD M [facility] Location: [place] [address] Reason for Visit Reason for Visit: Diagnoses Other malaise (08/23/24) Unspecified injury of head, initial encounter (08/23/24) Unspecified fracture of the lower end of left radius, initial encounter for closed fracture (08/23/24) Subjective Subjective Patient was seen and examined today, I removed her from telemetry-she did not appear to be tachycardic. We are currently awaiting approval for her to go to [facility] for short-term skilled services. Objective Data Objective Data Vital Signs: Vital Signs Temp Pulse Resp BP Pulse Ox O2 Del Method 97.6 F L 76 20 H 134/56 H 99 Room Air 08/26/24 09:18 08/26/24 13:08 08/26/24 13:08 08/26/24 09:18 08/26/24 09:18 08/26/24 10:00 Oxygen Delivery Method Room Air Weight: 60.1 kg Body Mass Index (BMI) 23.4 Intake & Output: Intake and Output for Last 24 Hours 08/24/24 08/25/24 08/26/24 23:59 23:59 23:59 Intake Total 440 / 440 240 / 240 240 / 240 Output Total 2049 / 2049 1350 / 1350 1000 / 1000 Balance -1610 / -1610 -1110 / -1110 -760 / -760 Lab / Micro Data 08/24/24 04:50 07/06/25 04:50 Labs: Laboratory Results - last 24 hr 08/26/24 05:56: PT 17.7 H, INR 1.4 Physical Exam Narrative alert, oriented x3, no apparent distress and healthy appearing General Appearance: cooperative, well kempt and well developed Orientation / Consciousness: awake, oriented to person, oriented to place and oriented to time HEENT normocephalic and moist oral mucous membranes Eyes PERRL, [...] sounds, soft to palpation,non-tender and non-distended Extremity Extremity Narrative: Patient has a cast over her left forearm and wrist Skin no rashes or lesions noted General Skin Exam: no breakdown Neuro oriented x3, CN's II-XII intact bilaterally, no focal motor deficits and no sensory deficits noted Sensorium / Orientation: awake and alert Speech: speech normal Psych affect normal Assessment & Plan Assessment/Plan (1) Declining functional status: PLAN: Plan 1. Acute on chronic debility secondary to multiple medical problems and acute left wrist fracture-PT and OT will continue, again we are awaiting approval for the patient to go to a skilled facility for skilled services #2 chronic use of 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-patient's INR on admission was subtherapeutic at 1.2, INR will be monitored and warfarin will be adjusted if needed-patient's INR today was 1.4 again, I will administer extra warfarin and recheck the INR tomorrow #3 chronic obstructive pulmonary disease-patient is on aerosol treatments #4 valvular heart disease-patient underwent a TAVR in April of this year Total clinical time spent by myself addressing the patient's medical issues, reviewing all of her data, and collaborating with patient's care team: 35 minutes Charges/Coding Visit Charges Inpatient E&M: 98565 Subs Hosp L2 08/26/24 5788 <Electronically signed by Jasmyn Chan DO> Cosigner Signature (if applicable): CC: ~ Signed [facility] Work Phone: 1(976) 272-773407-08-2025 Progress note [facility] Medical Records Department [address] [place] [address] Progress Note - Hospitalist 08/26/24 1654 MR#: [id number] Acct: [id number] Name: HAYDEE BUSTAMANTE Rep #:[id number] : 1945 79 From: Jasmyn Chan DO PCP: Dr. Claudine Durán MD Status:AD M ADAIR Location: [facility] [id number] Reason for Visit Reason for Visit: Diagnoses Other malaise (08/23/24) Unspecified injury of head, initial encounter (08/23/24) Unspecified fracture of the lower end of left radius, initial encounter for closed fracture (08/23/24) Subjective Subjective Patient was seen and examined today, I removed her from telemetry-she did not appear to be tachycardic. We are currently awaiting approval for her to go to [facility] for short-term skilled services. Objective Data Objective Data Vital Signs: Vital Signs Temp Pulse Resp BP Pulse Ox O2 Del Method 97.6 F L 76 20 H 134/56 H 99 Room Air 08/26/24 09:18 08/26/24 13:08 08/26/24 13:08 08/26/24 09:18 08/26/24 09:18 08/26/24 10:00 Oxygen Delivery Method Room Air Weight: 60.1 kg Body Mass Index (BMI) 23.4 Intake & Output: Intake and Output for Last 24 Hours 08/24/24 08/25/24 08/26/24 23:59 23:59 23:59 Intake Total 440 / 440 240 / 240 240 / 240 Output Total 2049 / 2049 1350 / 1350 1000 / 1000 Balance -1610 / -1610 -1110 / -1110 -760 / -760 Lab / Micro Data 08/24/24 04:50 08/24/24 04:50 Labs: Laboratory Results - last 24 hr 08/26/24 05:56: PT 17.7 H, INR 1.4 Physical Exam Narrative alert, oriented x3, no apparent distress and healthy appearing General Appearance: cooperative, well kempt and well developed Orientation / Consciousness: awake, oriented to person, oriented to place and oriented to time HEENT normocephalic and moist oral mucous membranes Eyes PERRL, [...] sounds, soft to palpation,non-tender and non-distended Extremity Extremity Narrative: Patient has a cast over her left forearm and wrist Skin no rashes or lesions noted General Skin Exam: no breakdown Neuro oriented x3, CN's II-XII intact bilaterally, no focal motor deficits and no sensory deficits noted Sensorium / Orientation: awake and alert Speech: speech normal Psych affect normal Assessment & Plan Assessment/Plan (1) Declining functional status: PLAN: Plan 1. Acute on chronic debility secondary to multiple medical problems and acute left wrist fracture-PT and OT will continue, again we are awaiting approval for the patient to go to a skilled facility for skilled services #2 chronic use of 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-patient's INR on admission was subtherapeutic at 1.2, INR will be monitored and warfarin will be adjusted if needed-patient's INR today was 1.4 again, I will administer extra warfarin and recheck the INR tomorrow #3 chronic obstructive pulmonary disease-patient is on aerosol treatments #4 valvular heart disease-patient underwent a TAVR in April of this year Total clinical time spent by myself addressing the patient's medical issues, reviewing all of her data, and collaborating with patient's care team: 35 minutes Charges/Coding Visit Charges Inpatient E&M: 70593 Subs Hosp L2 08/26/24 7975 Cosigner Signature (if applicable): CC: ~ Signed [facility]07-07-2025 Progress note Author Jasmyn Chan [facility] Note Date/Time August 25, 2024 6:26p m [facility] Medical Records Department [address] [place] [address] Progress Note - Hospitalist 08/25/24 4203 MR#: [id number] Acct: [id number] Name: HAYDEE BUSTAMANTE Rep #:[id number] : 1945 79 From: Jasmyn Chan DO PCP: Dr. Claudine Durán MD Status:AD M ADAIR Location: [place] [id number] Reason for Visit Reason for Visit: Diagnoses Unspecified injury of head, initial encounter (08/23/24) Unspecified fracture of the lower end of left radius, initial encounter for closed fracture (08/23/24) Subjective Subjective Patient was seen and examined today, we are currently awaiting approval for her to go to a skilled facility for short-term rehab services. Objective Data Objective Data Vital Signs: Vital Signs Temp Pulse Resp BP Pulse Ox O2 Del Method 98.5 F 81 17 123/61 H 95 Room Air 08/25/24 11:35 08/25/24 15:12 08/25/24 15:12 08/25/24 11:35 08/25/24 11:35 08/25/24 11:35 Oxygen Delivery Method Room Air Weight: 60.5 kg Body Mass Index (BMI) 23.6 Intake & Output: Intake and Output for Last 24 Hours 08/23/24 08/24/24 08/25/24 23:59 23:59 23:59 Intake Total 1450 / 1450 440 / 440 Output Total 2049 / 2049 950 / 950 Balance 1450 / 1150 -1610 / -1610 -950 / -950 Lab / Micro Data 08/24/24 04:50 08/24/24 04:50 Labs: Laboratory Results - last 24 hr 08/25/24 05:20: PT 17.7 H, INR 1.4 Physical Exam Const alert, oriented x3, no apparent distress and healthy appearing General Appearance: cooperative, well kempt and well developed Orientation / Consciousness: awake, oriented to person, oriented to place and oriented to time HEENT normocephalic and moist oral mucous membranes Eyes PERRL, [...] sounds, soft to palpation,non-tender and non-distended Extremity Extremity Narrative: Patient has a cast over her left forearm and wrist Skin no rashes or lesions noted General Skin Exam: no breakdown Neuro oriented x3, CN's II-XII intact bilaterally, no focal motor deficits and no sensory deficits noted Sensorium / Orientation: awake and alert Speech: speech normal Psych affect normal Assessment & Plan Assessment/Plan (1) Declining functional status: PLAN: Plan 1. Acute on chronic debility secondary to multiple medical problems and acute left wrist fracture-PT and OT will continue, again we are awaiting approval for the patient to go to a skilled facility for skilled services #2 chronic use of 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-patient's INR on admission was subtherapeutic at 1.2, INR will be monitored and warfarin will be adjusted if needed #3 chronic obstructive pulmonary disease-patient is on aerosol treatments #4 valvular heart disease-patient underwent a TAVR in April of this year Total clinical time spent by myself addressing the patient's medical issues, reviewing all of her data, and collaborating with patient's care team: 35 minutes Charges/Coding Visit Charges Inpatient E&M: 06123 Subs Hosp L2 08/25/24 1826 <Electronically signed by Jasmyn Chan DO> Cosigner Signature (if applicable): CC: ~ Signed [facility] Work Phone: 1(777) 493-974607-07-2025 Progress note [facility] Medical Records Department [address] [place] [address] Progress Note - Hospitalist 08/25/24 1819 MR#: [id number] Acct: [id number] Name: HAYDEE BUSTAMANTE Rep #:[id number] : 1945 79 From: Jasmyn Chan DO PCP: Dr. Claudine Durán MD Status:AD M [facility] Location: [place] [id number] Reason for Visit Reason for Visit: Diagnoses Unspecified injury of head, initial encounter (08/23/24) Unspecified fracture of the lower end of left radius, initial encounter for closed fracture (08/23/24) Subjective Subjective Patient was seen and examined today, we are currently awaiting approval for her to go to a skilled facility for short-term rehab services. Objective Data Objective Data Vital Signs: Vital Signs Temp Pulse Resp BP Pulse Ox O2 Del Method 98.5 F 81 17 123/61 H 95 Room Air 08/25/24 11:35 08/25/24 15:12 08/25/24 15:12 08/25/24 11:35 08/25/24 11:35 08/25/24 11:35 Oxygen Delivery Method Room Air Weight: 60.5 kg Body Mass Index (BMI) 23.6 Intake & Output: Intake and Output for Last 24 Hours 08/23/24 08/24/24 08/25/24 23:59 23:59 23:59 Intake Total 1450 / 1450 440 / 440 Output Total 2049 / 2049 950 / 950 Balance 1450 / 1150 -1610 / -1610 -950 / -950 Lab / Micro Data 08/24/24 04:50 08/24/24 04:50 Labs: Laboratory Results - last 24 hr 08/25/24 05:20: PT 17.7 H, INR 1.4 Physical Exam Const alert, oriented x3, no apparent distress and healthy appearing General Appearance: cooperative, well kempt and well developed Orientation / Consciousness: awake, oriented to person, oriented to place and oriented to time HEENT normocephalic and moist oral mucous membranes Eyes PERRL, [...] sounds, soft to palpation,non-tender and non-distended Extremity Extremity Narrative: Patient has a cast over her left forearm and wrist Skin no rashes or lesions noted General Skin Exam: no breakdown Neuro oriented x3, CN's II-XII intact bilaterally, no focal motor deficits and no sensory deficits noted Sensorium / Orientation: awake and alert Speech: speech normal Psych affect normal Assessment & Plan Assessment/Plan (1) Declining functional status: PLAN: Plan 1. Acute on chronic debility secondary to multiple medical problems and acute left wrist fracture-PT and OT will continue, again we are awaiting approval for the patient to go to a skilled facility for skilled services #2 chronic use of 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-patient's INR on admission was subtherapeutic at 1.2, INR will be monitored and warfarin will be adjusted if needed #3 chronic obstructive pulmonary disease-patient is on aerosol treatments #4 valvular heart disease-patient underwent a TAVR in April of this year Total clinical time spent by myself addressing the patient's medical issues, reviewing all of her data, and collaborating with patient's care team: 35 minutes Charges/Coding Visit Charges Inpatient E&M: 77718 Subs Hosp L2 08/25/24 1826 Cosigner Signature (if applicable): CC: ~ Signed [facility]07-06-2025 Progress note Author Erasmo House [facility] Note Date/Time August 24, 2024 1:25p m [facility] Medical Records Department [address] [place] [address] Progress Note - Hospitalist 08/24/24 0849 MR#: [id number] Acct: [id number] Name: HAYDEE BUSTAMANTE Rep #:[id number] : 1945 79 From: Erasmo Castañeda PCP: Dr. Claudine Durán MD Status:[facility]RERO Location: [place] [address]-1 Reason for Visit Reason for Visit: Diagnoses Unspecified injury of head, initial encounter (08/23/24) Unspecified fracture of the lower end of left radius, initial encounter for closed fracture (08/23/24) Objective Data Objective Data Vital Signs: Vital Signs Temp Pulse Resp BP Pulse Ox O2 Del Method 98.3 F 95 20 H 145/60 H 95 Room Air 08/24/24 08:26 08/24/24 08:28 08/24/24 08:26 08/24/24 08:26 08/24/24 08:26 08/24/24 08:26 Oxygen Delivery Method Room Air Weight: 130 lb 8.218 oz Body Mass Index (BMI) 23.1 Intake & Output: Intake and Output for Last 24 Hours 08/22/24 08/23/24 08/24/24 23:59 23:59 23:59 Intake Total 1450 / 1450 200 / 200 Output Total 1350 / 1350 Balance 1450 / 1150 -1150 / -1150 Lab / Micro Data 08/24/24 04:50 08/24/24 04:50 Labs: Laboratory Results - last 24 hr 08/23/24 07:45: Sodium 140, Potassium 3.9, Chloride 104, Carbon Dioxide 22.1, Anion Gap 14, BUN 22 H, Creatinine 0.63 L, Estim Creat Clear Calc 48.72 L, Est GFR (MDRD) Non-Af 91, BUN/Creatinine Ratio 34.8 H, Glucose 116 H, Calcium 9.2, Magnesium 2.1, Total Creatine Kinase 128 08/24/24 04:50: WBC 5.4, RBC 3.58 L, Hgb 11.4 L, Hct 34.6 L, MCV 96.6, MCH 31.8,MCHC 32.9, RDW Std Deviation 61.1 H, RDW Coeff of Catarino 17.2 H, Plt Count 154, MPV11.0, Immature Gran % (Auto) 0.400, Neut % (Auto) 69.1, Lymph % (Auto) 15.8 L, Maury % (Auto) 12.6 H, Eos % (Auto) 1.5, Baso % (Auto) 0.6, Absolute Neuts (auto) 3.7, Absolute Lymphs (auto) 0.85, Nucleated RBC % 0, PT 16.3 H, INR 1.3, Sodium 140, Potassium 3.9, Chloride 105, Carbon Dioxide 21.9, Anion Gap 13, BUN 15, Creatinine 0.65 L, Estim Creat Clear Calc 48.72 L, Est GFR (MDRD) Non-Af 91,BUN/Creatinine Ratio 22.5 H, Glucose 90, Calcium 9.0 Physical Exam Narrative Seen and examined Patient was seen by orthopedic surgeon. Conservative management for now General: Alert, Oriented x3, Cooperative HEENT: Atraumatic, PERRLA, EOMI, Normocephalic. Oral: Oral mucosa moist no Gingival or Mucosal Lesions/ Ulcerations Neck: Supple, No JVD, Negative Carotid Bruits Chest wall/Lungs: Air entry diminished in bilateral lung bases. Lungs clear. Cardiovascular: Regular rate and rhythm, Normal S1,S2, No obvious M/G/R Abdomen: Bowel Sounds Present, Soft, Non Tender, Non-Distended : No dysuria. No renal angle tenderness. No suprapubic tenderness. Extremities: No edema, Capillary Refill Less than 3 Seconds Skin: Left forearm splinted, bandaged with Daniella wrap bandage. Mild tenderness over the Daniella wrap bandage. Mild bruising around left supraorbital/forehead region. Musculoskeletal: Bilateral knee valgus deformity with degenerative arthritis. Chronic RA with bony deformity of wrist and hand joints. Neurological: Cranial nerves II-XII grossly intact, DTR 2+/4. No acute focal neurological deficit. Psych/Mental Status: Normal Affect, Appropriate. Assessment & Plan Assessment/Plan (1) Closed fracture of distal end of left radius: (2) Closed head injury without concussion: PLAN: Plan This 72-year-old female was brought to ED when she fell down, mechanism unclear resulting into left wrist fracture. 1. Acute debility of ADL due to closed fracture of distal end of left radius/Colles' fracture: [facility] 3 views ofx-ray left wrist x-ray reviewed shows comminuted impacted fracture of distal radius with intra-articular extension. ED patient is splinted in the left wristbut she has trouble in functioning and doing her house chores as she lives alone. Orthopedic surgeon Dr. Amanda consulted by ED physician. Pain control PT and OT ordered. 08/24: Orthopedic surgeon Dr. Amanda consultation note reviewed and appreciated. Conservative management for now. He advised to maintain the splint till she follow-up in the office after 2 weeks and at that time plan to change it to a cast. Will need likely 6 to 8 weeks of ambulation followed by intensive rehab to restore ROM and strength of the wrist. Follow-up in 2 weeks in [facility]. 2. Closed head injury without concussion from fall: Patient denies LOC. CT brain reviewed does not show acute intracranial abnormality. Generalized brain atrophy. 7 superficial bruises healing. 3. Severe aortic stenosis status post TAVR: On metoprolol succinate 25 mg daily, furosemide 20 mg daily 4. Chronic DVT status post IVC filter: Patient on warfarin. INR is 1.2. Continue home regimen of warfarin. 5 mg on Sunday and and 6 mg on rest of the days. 5. COPD/history of histoplasmosis twice: Patient completed treatment of itraconazole for 1 year for histoplasmosis about few months ago. Currently not in COPD exacerbation. Continue home maintenance inhaler and as needed albuterol. Incentive spirometry and PEP. 6. Chronic RA and degenerative arthritis: Patient on methotrexate, folic acid, sulfasalazine. She is not on biologic. She also has chronic degenerative arthritis of knees. She can still walk. 7. Anemia of chronic disease: H&H 11.3/34%. MCV 96.3. Platelet count 182K. Patient was last admitted in August 08 4 GI bleed. EGD on 08/09/2023 showed normalesophagus, small hiatus hernia, nonbleeding duodenal ulcer with no stigmata of bleeding. 3 bleeding in the dysplastic lesion seen jejunum treated with heater probe. Patient on ferrous sulfate. Vitamin C added. Continue folic acid. 8. DVT prophylaxis: INR 1.2, subtherapeutic. Continue home regimen. Monitor INR daily Living will/advanced directive/end of life care: Patient does have living will or advanced directive. She is a . After discussion of benefits/risks procedures involved with full code, DNR CC arrest and DNR CC, the patient optedfor full code. Patient does want artificial life support including intubation, tube feed, ventilator and/chest compression, central venous catheter, vasopressor and DC shock if needed Total time spent in [id number] encounter in discussion of advanced directive 17 minutes. Laboratory Results 08/23/24 07:45: WBC 7.9, RBC 3.52 L, Hgb 11.3 L, Hct 33.9 L, MCV 96.3, MCH 32.1 H, MCHC 33.3, RDW Std Deviation 58.6 H, RDW Coeff of Catarino 17.0 H, Plt Count 182, MPV 10.9, Immature Gran % (Auto) 0.500, Neut % (Auto) 82.3 H, Lymph % (Auto) 8.1L, Maury % (Auto) 8.6, Eos % (Auto) 0.1, Baso % (Auto) 0.4, Absolute Neuts (auto)6.5, Absolute Lymphs (auto) 0.64 L, Nucleated RBC % 0, PT 15.5 H, INR 1.2, Sodium 140, Potassium 3.9, Chloride 104, Carbon Dioxide 22.1, Anion Gap 14, BUN 22 H, Creatinine 0.63 L, Estim Creat Clear Calc 48.72 L, Est GFR (MDRD) Non-Af 91, BUN/Creatinine Ratio 34.8 H, Glucose 116 H, Calcium 9.2, Total Creatine Kinase 128 08/23/24 07:45: Sodium 140, Potassium 3.9, Chloride 104, Carbon Dioxide 22.1, Anion Gap 14, BUN 22 H, Creatinine 0.63 L, Estim Creat Clear Calc 48.72 L, Est GFR (MDRD) Non-Af 91, BUN/Creatinine Ratio 34.8 H, Glucose 116 H, Calcium 9.2, Magnesium 2.1, Total Creatine Kinase 128 Laboratory Results 08/24/24 04:50: WBC 5.4, RBC 3.58 L, Hgb 11.4 L, Hct 34.6 L, MCV 96.6, MCH 31.8,MCHC 32.9, RDW Std Deviation 61.1 H, RDW Coeff of Catarino 17.2 H, Plt Count 154, MPV11.0, Immature Gran % (Auto) 0.400, Neut % (Auto) 69.1, Lymph % (Auto) 15.8 L, Maury % (Auto) 12.6 H, Eos % (Auto) 1.5, Baso % (Auto) 0.6, Absolute Neuts (auto) 3.7, Absolute Lymphs (auto) 0.85, Nucleated RBC % 0, PT 16.3 H, INR 1.3, Sodium 140, Potassium 3.9, Chloride 105, Carbon Dioxide 21.9, Anion Gap 13, BUN 15, Creatinine 0.65 L, Estim Creat Clear Calc 48.72 L, Est GFR (MDRD) Non-Af 91, BUN/Creatinine Ratio 22.5 H, Glucose 90, Calcium 9.0 Clinical Impression(s) from Imaging Studies Wrist X-Ray 08/23/24 07:31 IMPRESSION: Comminuted impacted fracture of the distal radius with intra-articular extension. Reading Location: [facility] Brain CT 08/23/24 08:06 IMPRESSION: 1. Generalized brain atrophy. 2. Small vessel ischemic/degenerative changes. 3. No acute intracranial hemorrhage, midline shift or mass effect. If symptoms persist, further evaluation with MRI is recommended. Reading Location: [facility] Charges/Coding Visit Charges Inpatient E&M: 45568 Subs Hosp L2 08/24/24 1325 <Electronically signed by Erasmo House MD> Cosigner Signature (if applicable): CC: ~ Signed [facility] Work Phone: [phone] 523-456307-06-2025 Progress note [facility] Medical Records Department [address] [place] [address] Progress Note - Hospitalist 08/24/24 0849 MR#: [id number] Acct: [id number] Name: HAYDEE BUSTAMANTE Rep #:[id number] : 1945 79 From: Erasmo Castañeda PCP: Dr. Claudine Durán MD Status:LUKE BORRERO Location: [place] [id number] Reason for Visit Reason for Visit: Diagnoses Unspecified injury of head, initial encounter (08/23/24) Unspecified fracture of the lower end of left radius, initial encounter for closed fracture (08/23/24) Objective Data Objective Data Vital Signs: Vital Signs Temp Pulse Resp BP Pulse Ox O2 Del Method 98.3 F 95 20 H 145/60 H 95 Room Air 08/24/24 08:26 08/24/24 08:28 08/24/24 08:26 08/24/24 08:26 08/24/24 08:26 08/24/24 08:26 Oxygen Delivery Method Room Air Weight: 130 lb 8.218 oz Body Mass Index (BMI) 23.1 Intake & Output: Intake and Output for Last 24 Hours 08/22/24 08/23/24 08/24/24 23:59 23:59 23:59 Intake Total 1450 / 1450 200 / 200 Output Total 1350 / 1350 Balance 1450 / 1150 -1150 / -1150 Lab / Micro Data 08/24/24 04:50 08/24/24 04:50 Labs: Laboratory Results - last 24 hr 08/23/24 07:45: Sodium 140, Potassium 3.9, Chloride 104, Carbon Dioxide 22.1, Anion Gap 14, BUN 22 H, Creatinine 0.63 L, Estim Creat Clear Calc 48.72 L, Est GFR (MDRD) Non-Af 91, BUN/Creatinine Ratio34.8 H, Glucose 116 H, Calcium 9.2, Magnesium 2.1, Total Creatine Kinase 128 07/06/25 04:50: WBC 5.4, RBC 3.58 L, Hgb 11.4 L, Hct 34.6 L, MCV 96.6, MCH 31.8,MCHC 32.9, RDW Std Deviation 61.1 H, RDW Coeff of Catarino 17.2 H, Plt Count 154, MPV11.0, Immature Gran % (Auto) 0.400, Neut % (Auto) 69.1, Lymph % (Auto) 15.8 L, Maury % (Auto) 12.6 H, Eos % (Auto) 1.5, Baso % (Auto) 0.6, Absolute Neuts (auto) 3.7, Absolute Lymphs (auto) 0.85, Nucleated RBC % 0, PT 16.3 H, INR 1.3, Sodium 140, Potassium 3.9, Chloride 105, Carbon Dioxide 21.9, Anion Gap 13, BUN 15, Creatinine 0.65L, Estim Creat Clear Calc 48.72 L, Est GFR (MDRD) Non-Af 91,BUN/Creatinine Ratio 22.5 H, Glucose 90, Calcium 9.0 Physical Exam Narrative Seen and examined Patient was seen by orthopedic surgeon. Conservative management for now General: Alert, Oriented x3, Cooperative HEENT: Atraumatic, PERRLA, EOMI, Normocephalic. Oral: Oral mucosa moist no Gingival or Mucosal Lesions/ Ulcerations Neck: Supple, No JVD, Negative Carotid Bruits Chest wall/Lungs: Air entry diminished in bilateral lung bases. Lungs clear. Cardiovascular: Regular rate and rhythm, Normal S1,S2, No obvious M/G/R Abdomen: Bowel Sounds Present, Soft, Non Tender, Non-Distended : No dysuria. No renal angle tenderness. No suprapubic tenderness. Extremities: No edema, Capillary Refill Less than 3 Seconds Skin: Left forearm splinted, bandaged with Daniella wrap bandage. Mild tenderness over the Daniella wrap bandage. Mild bruising around left supraorbital/forehead region. Musculoskeletal: Bilateral knee valgus deformity with degenerative arthritis. Chronic RA with bony deformity of wrist and hand joints. Neurological: Cranial nerves II-XII grossly intact, DTR 2+/4. No acute focal neurological deficit. Psych/Mental Status: Normal Affect, Appropriate. Assessment & Plan Assessment/Plan (1) Closed fracture of distal end of left radius: (2) Closed head injury without concussion: PLAN: Plan This 72-year-old female was brought to ED when she fell down, mechanism unclear resulting into leftwrist fracture. 1. Acute debility of ADL due to closed fracture of distal end of left radius/Colles' fracture: [facility] 3 views ofx-ray left wrist x-ray reviewed shows comminuted impacted fracture of distal radius with intra-articular extension. ED patient is splinted in the left wristbut she has trouble in functioning and doing her house chores as she lives alone. Orthopedic surgeon Dr. Amanda consulted by ED physician. Pain control PT and OT ordered. 08/24: Orthopedic surgeon Dr. Amanda consultation note reviewed and appreciated. Conservative management for now. He advised to maintain the splint till she follow-up in the office after 2 weeks and atthat time plan to change it to a cast. Will need likely 6 to 8 weeks of ambulation followed by intensive rehab to restore ROM and strength of the wrist. Follow-up in 2 weeks in [facility]. 2. Closed head injury without concussion from fall: Patient denies LOC. CT brain reviewed does not show acute intracranial abnormality. Generalized brain atrophy. 08/24 superficial bruises healing. 3. Severe aortic stenosis status post TAVR: On metoprolol succinate 25 mg daily, furosemide 20 mg daily 4. Chronic DVT status post IVC filter: Patient on warfarin. INR is 1.2. Continue home regimen of warfarin. 5 mg on Sunday and and 6 mg on rest of the days. 5. COPD/history of histoplasmosis twice: Patient completed treatment of itraconazole for 1 year forhistoplasmosis about few months ago. Currently not in COPD exacerbation. Continue home maintenance inhaler and as needed albuterol. Incentive spirometry and PEP. 6. Chronic RA and degenerative arthritis: Patient on methotrexate, folic acid, sulfasalazine. She is not on biologic. She also has chronic degenerative arthritis of knees. She can still walk. 7. Anemia of chronic disease: H&H 11.3/34%. MCV 96.3. Platelet count 182K. Patient was last admitted in August 08 4 GI bleed. EGD on 08/09/2023 showed normalesophagus, small hiatus hernia, nonbleeding duodenal ulcer with no stigmata of bleeding. 3 bleeding in the dysplastic lesion seen jejunum treated with heater probe. Patient on ferrous sulfate. Vitamin C added. Continue folic acid. 8. DVT prophylaxis: INR 1.2, subtherapeutic. Continue home regimen. Monitor INR daily Living will/advanced directive/end of life care: Patient does have living will or advanced directive. She is a . After discussion of benefits/risks procedures involved with full code, DNR CC arrest and DNR CC, the patient optedfor full code. Patient does want artificial life support including intubation, tube feed, ventilator and/chest compression, central venous catheter, vasopressor and DC shock if needed Total time spent in [id number] encounter in discussion of advanced directive 17 minutes. Laboratory Results 08/23/24 07:45: WBC 7.9, RBC 3.52 L, Hgb 11.3 L, Hct 33.9 L, MCV 96.3, MCH 32.1 H, MCHC 33.3, RDW Std Deviation 58.6 H, RDW Coeff of Catarino 17.0 H, Plt Count 182, MPV 10.9, Immature Gran % (Auto) 0.500,Neut % (Auto) 82.3 H, Lymph % (Auto) 8.1L, Maury % (Auto) 8.6, Eos % (Auto) 0.1, Baso % (Auto) 0.4, Absolute Neuts (auto)6.5, Absolute Lymphs (auto) 0.64 L, Nucleated RBC % 0, PT 15.5 H, INR 1.2, Sodium 140, Potassium 3.9, Chloride 104, Carbon Dioxide 22.1, Anion Gap 14, BUN 22 H, Creatinine 0.63 L, Estim Creat Clear Calc 48.72 L, Est GFR (MDRD) Non-Af 91, BUN/Creatinine Ratio 34.8 H, [id number] H, Calcium 9.2, Total Creatine Kinase 128 08/23/24 07:45: Sodium 140, Potassium 3.9, Chloride 104, Carbon Dioxide 22.1, Anion Gap 14, BUN 22 H, Creatinine 0.63 L, Estim Creat Clear Calc 48.72 L, Est GFR (MDRD) Non-Af 91, BUN/Creatinine Ratio34.8 H, Glucose 116 H, Calcium 9.2, Magnesium 2.1, Total Creatine Kinase 128 Laboratory Results 08/24/24 04:50: WBC 5.4, RBC 3.58 L, Hgb 11.4 L, Hct 34.6 L, MCV 96.6, MCH 31.8,MCHC 32.9, RDW Std Deviation 61.1 H, RDW Coeff of Catarino 17.2 H, Plt Count 154, MPV11.0, Immature Gran % (Auto) 0.400, Neut % (Auto) 69.1, Lymph % (Auto) 15.8 L, Maury % (Auto) 12.6 H, Eos % (Auto) 1.5, Baso % (Auto) 0.6, Absolute Neuts (auto) 3.7, Absolute Lymphs (auto) 0.85, Nucleated RBC % 0, PT 16.3 H, INR 1.3, [id number], Potassium 3.9, Chloride 105, Carbon Dioxide 21.9, Anion Gap 13, BUN 15, Creatinine 0.65 L, Estim Creat Clear Calc 48.72 L, Est GFR (MDRD) Non-Af 91, BUN/Creatinine Ratio 22.5 H, Glucose 90, Calcium 9.0 Clinical Impression(s) from Imaging Studies Wrist X-Ray 08/23/24 07:31 IMPRESSION: Comminuted impacted fracture of the distal radius with intra-articular extension. Reading Location: [facility] Brain CT 08/23/24 08:06 IMPRESSION: 1. Generalized brain atrophy. 2. Small vessel ischemic/degenerative changes. 3. No acute intracranial hemorrhage, midline shift or mass effect. If symptoms persist, further evaluation with MRI is recommended. Reading Location: [facility] Charges/Coding Visit Charges Inpatient E&M: 33054 Subs Hosp L2 08/24/24 1325 Cosigner Signature (if applicable): CC: ~ Signed [facility]07-05-2025 Consult note Author Burak Amanda [facility] Note Date/Time August 23, 2024 2:01p m [facility] Medical Records Department [address] [place] [address] Consultation - Orthopedics 08/23/24 1354 MR#: [id number] Acct: [id number] Name: HAYDEE BUSTAMANTE Rep #:[id number] : 1945 79 From: Burak Castañeda PCP: Dr. Claudine Durán MD Status:AD M ADAIR Location: [place]3 [id number] HPI Consult Data Date of Consult: 08/23/24 HPI Narrative Reason for Consultation: Left wrist pain HPI Narrative: HAYDEE BUSTAMANTE, is a 79 F who presents today with left wrist pain. Patient notes she is in cardiac rehab and has a couple days left. She had a TAVR and is contained to rehab from this. She is on Coumadin for blood thinner and is currently symptomatic. Patient notes she fell last evening. She notes she was getting out of bed to go to the bathroom and fell she did not hit her head or lose consciousness however she feels things happen quickly and does not rememberthe exact events of her fall. She lives at home by herself and does her own cooking cleaning laundry and ADLs. She presents with left wrist pain noted at 8out of 10 worse with motion better with immobilization. She denies any associated numbness and tingling. She was seen in the emergency department and noted that she is unable to go home due to difficulty with ADLs. She has chronic osteoarthritis and rheumatoid arthritis causing lower extremity pain. She uses her hands to get out of the chair or up off of the low toilet seat. She was unable to do this in the emergency room. Based on this she was admittedfor placement and likely rehabilitation. [facility] Medical History Hypertension GERD (gastroesophageal reflux disease) Pericardial effusion CHF (congestive heart failure) Wears glasses Walker as ambulation aid Ambulates [...] venous thrombosis) Pulmonary embolism Colitis COVID-19 Histoplasmosis Home Medications ?Medication ?Instructions ?Recorded ?Last Taken ?Type multivitamin (Daily Multi-Vitamin 1 tab PO DAILY suppl ement 03/19/23 10/01/23 History tablet) vitamins A,C,Q-afbm-ckvetb 2,148 2 tab PO BID eye heal th 03/19/23 10/01/23 History mcg-113 mg-45 mg-17.4 mg tablet (PreserVision AREDS) gabapentin 300 mg capsule 300 mg PO Q12 nerve pain #0 caps 04/05/23 10/01/23 Rx potassium chloride 20 mEq 20 meq PO BIDCM #0 tabs 03/0 10/1210/01/23 Rx tablet,extended release(part/cryst) fluticasone propionate 50 1 spray intranasal DAILY 10/02/23 History mcg/actuation nasal spray,suspension furosemide 20 mg tablet 20 mg PO DAILY PRN edema 10/01/23 History tiotropium bromide 2.5 2 puff inhalation DAILY 07/2110/02/23 History mcg/actuation mist for inhalation (Spiriva Respimat) diclofenac sodium 1 % topical gel 4 g topical BID PRN PRN knee pain 08/18/23 10/02/23 Rx (Voltaren Arthritis Pain) #100 grams omega 4-dzf-wvv-fish oil 1,200 mg 1 cap PO DAILY 09/30 Unknown History (144 mg-216 mg) capsule (Fish Oil) albuterol sulfate 90 mcg/actuation 2 puff inhalation Q 4H PRN PRN 06/13/24 Unknown History aerosol inhaler shortness of breath or wheez ing cholecalciferol (vitamin D3) 25 25 mcg PO QDAY 5 Unknown History mcg (1,000 unit) capsule fluticasone 250 mcg-salmeterol 50 1 inh inhalation BID 06/13/24 Unknown History mcg/dose blistr powdr for inhalation (Wixela Inhub) folic acid 0.8 mg capsule 0.8 mg PO QDAY 06/13/24 Unkn own History methotrexate sodium 2.5 mg tablet 10 mg PO QWEEK 06/13 Unknown History sulfasalazine 500 mg 1 g PO BID 06/13/24 Unknown History tablet,delayed release acetaminophen 500 mg tablet 1,000 mg PO TID Pain Score 1-10 06/20/24 Unknown History clindamycin HCl 300 mg capsule 600 mg (2 x 300 mg) PO ONCE #2 caps 06/20/24 Unknown Rx ferrous sulfate 325 mg (65 mg 325 mg PO QDAY 06/20/24 Unknown History iron) tablet metoprolol succinate 25 mg 25 mg PO QDAY #30 tabs 06/21 Unknown Rx tablet,extended release 24 hr folic acid 1 mg tablet 1 mg PO DAILY 08/23/24 Unkno wn History warfarin 1 mg tablet 5 mg PO DAILY 08/23/24 Unkno wn History warfarin 5 mg tablet See Rx Instructions .Route . COMPLEX 08/23/24 Unknown History Held on 10/01/23. Instructions: ON HOLD FOR COLONOSCOPY Allergy/AdvReac Type Severity Reaction Status Date / Time Penicillins Allergy Severe Anaphylaxis Verified 06/20/24 10:10 no significant family history Surgical History History of transcatheter aortic valve replacement (TAVR) History of back surgery History of esophagogastroduodenoscopy (EGD) History of tonsillectomy History of embolic filter insertion Hx of foot surgery Social History household members: none Smoking Status: Former smoker alcohol intake: never substance use type: does not use ROS ROS Narrative Outside of what is mentioned in HPI 14 point review of systems is negative Vital Signs Vital Signs Vital Signs: 08/23/24 07:18 08/23/24 07:31 08/23/24 09:18 Temperature 98.6 F Temperature Source Oral Pulse Rate 84 64 Pulse Strength Respiratory Rate 18 18 Respiratory Effort Normal Respiratory Depth Normal Respiratory Pattern Normal Blood Pressure 113/63 134/76 H Blood Pressure Mean 79 95 Blood Pressure Source Blood Pressure Position Blood Pressure Location Pulse Ox 98 98 Oxygen Delivery Method Room Air Room Air Room Air 08/23/24 10:40 08/23/24 11:59 08/23/24 11:59 Temperature 97.8 F 98.2 F Temperature Source Oral Pulse Rate 61 80 Pulse Strength Respiratory Rate 18 16 Respiratory Effort Normal Respiratory Depth Normal Respiratory Pattern Normal Blood Pressure 134/66 H 148/82 H Blood Pressure Mean 88 104 Blood Pressure Source Monitor Blood Pressure Position Semi-Fowlers Blood Pressure Location Right Arm Pulse Ox 100 100 Oxygen Delivery Method Room Air Room Air 08/23/24 12:04 Temperature Temperature Source Pulse Rate Pulse Strength Normal (2+) Respiratory Rate Respiratory Effort Respiratory Depth Respiratory Pattern Blood Pressure Blood Pressure Mean Blood Pressure Source Blood Pressure Position Blood Pressure Location Pulse Ox Oxygen Delivery Method Weight Weight: 129 lb Body Mass Index (BMI) 22.8 Medical Records Data Attestation: I reviewed the patient's medical records Lab / Micro Data Attestation: I reviewed the patient's lab results. 08/23/24 07:45 08/23/24 07:45 Labs: Laboratory Results - last 24 hr 08/23/24 07:45: WBC 7.9, RBC 3.52 L, Hgb 11.3 L, Hct 33.9 L, MCV 96.3, MCH 32.1 H, MCHC 33.3, RDW Std Deviation 58.6 H, RDW Coeff of Catarino 17.0 H, Plt Count 182, MPV 10.9, Immature Gran % (Auto) 0.500, Neut % (Auto) 82.3 H, Lymph % (Auto) 8.1L, Maury % (Auto) 8.6, Eos % (Auto) 0.1, Baso % (Auto) 0.4, Absolute Neuts (auto)6.5, Absolute Lymphs (auto) 0.64 L, Nucleated RBC % 0, PT 15.5 H, INR 1.2, Sodium 140, Potassium 3.9, Chloride 104, Carbon Dioxide 22.1, Anion Gap 14, BUN 22 H, Creatinine 0.63 L, Estim Creat Clear Calc 48.72 L, Est GFR (MDRD) Non-Af 91, BUN/Creatinine Ratio 34.8 H, Glucose 116 H, Calcium 9.2, Magnesium 2.1, Total Creatine Kinase 128 Imaging Radiology Impression Wrist X-Ray 08/23/24 07:31 IMPRESSION: Comminuted impacted fracture of the distal radius with intra-articular extension. Reading Location: [facility] Independent review of the films shows comminuted distal radius fracture with impaction and slight loss of radial height and inclination however, patient already has Luno?radial zixf-js-iwts osteoarthritis with subchondral sclerosis additionally there is scapholunate widening appreciated. Brain CT 08/23/24 08:06 IMPRESSION: 1. Generalized brain atrophy. 2. Small vessel ischemic/degenerative changes. 3. No acute intracranial hemorrhage, midline shift or mass effect. If symptoms persist, further evaluation with MRI is recommended. Reading Location: [facility] Assessment & Plan Assessment/Plan (1) Closed fracture of distal end of left radius: PLAN: Natural history of the disease process and treatment options were discussed with the patient. Patient has chronic wrist osteoarthritis with acutedistal radius fracture. Based on fracture alignment, age and patient's health we discussed operative versus nonoperative interventions. At this time nonoperative treatment plan was recommended as best course of action. Patient is currently in a splint. She will maintain the splint until she is able to follow-up in the office at that time the swelling is decreased will transfer herto a cast. Patient will likely need 6 to 8 weeks of immobilization followed by intense rehabilitation to return restore range of motion and strength of the wrist. Continue to follow the fracture clinically to make sure that fracture alignment remains stable. Loss of alignment of the fracture may result in need for surgical open or close reduction. Patient demonstrates an understanding wish to proceed in this treatment manner. She is currently admitted to the hospital due to the fact that she has difficulty with getting in and out of seated position. I did discuss the patient she may benefit greatly from a motorized lift chair at home. Additionally we will allow the patient to bear weight through the elbow however she can do no weightbearing to the left wrist. This would allow for a platform walker with weightbearing to the elbow on the left. Patient demonstrates an understanding and does wish to proceed in this manner she is happy with current treatment plan. Please have the patient contact my office for follow-up 2 weeks after injury. If patient remains in nursing facility they can contact my office and we can obtain remote x-rays and direct care in that manner. [facility] Office: 08/23/24 3513 <Electronically signed by Burak Amanda MD> Cosigner Signature (if applicable): CC: Dr. Claudine Durán MD~ Signed [facility] Work Phone: [phone] Consult note [facility] Medical Records Department [address] [place] [address] Consultation - Orthopedics 08/23/24 1354 MR#: [id number] Acct: [id number] Name: HAYDEE BUSTAMANTE Rep #:[id number] : 1945 79 From: Burak Castañeda PCP: Dr. Claudine Durán MD Status:AD M ADAIR Location: MS3 [id number] HPI Consult Data Date of Consult: 08/23/24 HPI Narrative Reason for Consultation: Left wrist pain HPI Narrative: HAYDEE BUSTAMANTE, is a 79 F who presents today with left wrist pain. Patient notes she is in cardiac rehab and has a couple days left. She had a TAVR and is contained to rehab from this. She is on Coumadinfor blood thinner and is currently symptomatic. Patient notes she fell last evening. She notes she was getting out of bed to go to the bathroom and fell she did not hit her head or lose consciousnesshowever she feels things happen quickly and does not rememberthe exact events of her fall. She lives at home by herself and does her own cooking cleaning laundry and ADLs. She presents with left wrist pain noted at 8out of 10 worse with motion better with immobilization. She denies any associated numbness and tingling. She was seen in the emergency department and noted that she is unable to go home due to difficulty with ADLs. She has chronic osteoarthritis and rheumatoid arthritis causing lower extremity pain. She uses her hands to get out of the chair or up off of the low toilet seat. She was unable to do this in the emergency room. Based on this she was admittedfor placement and likely re habilitation. [facility] Medical History Hypertension GERD (gastroesophageal reflux disease) Pericardial effusion CHF (congestive heart failure) Wears glasses Walker as ambulation aid Ambulates [...] venous thrombosis) Pulmonary embolism Colitis COVID-19 Histoplasmosis Home Medications ?Medication ?Instructions ?Recorded ?Last Taken ?Type multivitamin (Daily Multi-Vitamin 1 tab PO DAILY suppl ement 03/19/23 10/01/23 History tablet) vitamins A,C,H-stqg-bruoyl 2,148 2 tab PO BID eye heal th 03/19/23 10/01/23 History mcg-113 mg-45 mg-17.4 mg tablet (PreserVision AREDS) gabapentin 300 mg capsule 300 mg PO Q12 nerve pain #0 caps 04/05/23 10/01/23 Rx potassium chloride 20 mEq 20 meq PO BIDCM #0 tabs 03/0 10/1210/01/23 Rx tablet,extended release(part/cryst) fluticasone propionate 50 1 spray intranasal DAILY 10/02/23 History mcg/actuation nasal spray,suspension furosemide 20 mg tablet 20 mg PO DAILY PRN edema 10/01/23 History tiotropium bromide 2.5 2 puff inhalation DAILY 07/2110/02/23 History mcg/actuation mist for inhalation (Spiriva Respimat) diclofenac sodium 1 % topical gel 4 g topical BID PRN PRN knee pain 08/18/23 10/02/23 Rx (Voltaren Arthritis Pain) #100 grams omega 8-fcb-ggw-fish oil 1,200 mg 1 cap PO DAILY 09/30 Unknown History (144 mg-216 mg) capsule (Fish Oil) albuterol sulfate 90 mcg/actuation 2 puff inhalation Q 4H PRN PRN 06/13/24 Unknown History aerosol inhaler shortness of breath or wheez ing cholecalciferol (vitamin D3) 25 25 mcg PO QDAY 5 Unknown History mcg (1,000 unit) capsule fluticasone 250 mcg-salmeterol 50 1 inh inhalation BID 06/13/24 Unknown History mcg/dose blistr powdr for inhalation (Wixela Inhub) folic acid 0.8 mg capsule 0.8 mg PO QDAY 06/13/24 Unkn own History methotrexate sodium 2.5 mg tablet 10 mg PO QWEEK 06/13 Unknown History sulfasalazine 500 mg 1 g PO BID 06/13/24 Unknown History tablet,delayed release acetaminophen 500 mg tablet 1,000 mg PO TID Pain Score 1-10 06/20/24 Unknown History clindamycin HCl 300 mg capsule 600 mg (2 x 300 mg) PO ONCE #2 caps 06/20/24 Unknown Rx ferrous sulfate 325 mg (65 mg 325 mg PO QDAY 06/20/24 Unknown History iron) tablet metoprolol succinate 25 mg 25 mg PO QDAY #30 tabs 06/21 Unknown Rx tablet,extended release 24 hr folic acid 1 mg tablet 1 mg PO DAILY 08/23/24 Unkno wn History warfarin 1 mg tablet 5 mg PO DAILY 08/23/24 Unkno wn History warfarin 5 mg tablet See Rx Instructions .Route . COMPLEX 08/23/24 Unknown History Held on 10/01/23. Instructions: ON HOLD FOR COLONOSCOPY Allergy/AdvReac Type Severity Reaction Status Date / Time Penicillins Allergy Severe Anaphylaxis Verified 06/20/24 10:10 no significant family history Surgical History History of transcatheter aortic valve replacement (TAVR) History of back surgery History of esophagogastroduodenoscopy (EGD) History of tonsillectomy History of embolic filter insertion Hx of foot surgery Social History household members: none Smoking Status: Former smoker alcohol intake: never substance use type: does not use ROS ROS Narrative Outside of what is mentioned in HPI 14 point review of systems is negative Vital Signs Vital Signs Vital Signs: 08/23/24 07:18 08/23/24 07:31 08/23/24 09:18 Temperature 98.6 F Temperature Source Oral Pulse Rate 84 64 Pulse Strength Respiratory Rate 18 18 Respiratory Effort Normal Respiratory Depth Normal Respiratory Pattern Normal Blood Pressure 113/63 134/76 H Blood Pressure Mean 79 95 Blood Pressure Source Blood Pressure Position Blood Pressure Location Pulse Ox 98 98 Oxygen Delivery Method Room Air Room Air Room Air 08/23/24 10:40 08/23/24 11:59 08/23/24 11:59 Temperature 97.8 F 98.2 F Temperature Source Oral Pulse Rate 61 80 Pulse Strength Respiratory Rate 18 16 Respiratory Effort Normal Respiratory Depth Normal Respiratory Pattern Normal Blood Pressure 134/66 H 148/82 H Blood Pressure Mean 88 104 Blood Pressure Source Monitor Blood Pressure Position Semi-Fowlers Blood Pressure Location Right Arm Pulse Ox 100 100 Oxygen Delivery Method Room Air Room Air 08/23/24 12:04 Temperature Temperature Source Pulse Rate Pulse Strength Normal (2+) Respiratory Rate Respiratory Effort Respiratory Depth Respiratory Pattern Blood Pressure Blood Pressure Mean Blood Pressure Source Blood Pressure Position Blood Pressure Location Pulse Ox Oxygen Delivery Method Weight Weight: 129 lb Body Mass Index (BMI) 22.8 Medical Records Data Attestation: I reviewed the patient's medical records Lab / Micro Data Attestation: I reviewed the patient's lab results. 08/23/24 07:45 08/23/24 07:45 Labs: Laboratory Results - last 24 hr 08/23/24 07:45: WBC 7.9, RBC 3.52 L, Hgb 11.3 L, Hct 33.9 L, MCV 96.3, MCH 32.1 H, MCHC 33.3, RDW Std Deviation 58.6 H, RDW Coeff of Catarino 17.0 H, Plt Count 182, MPV 10.9, Immature Gran % (Auto) 0.500,Neut % (Auto) 82.3 H, Lymph % (Auto) 8.1L, Maury % (Auto) 8.6, Eos % (Auto) 0.1, Baso % (Auto) 0.4, Absolute Neuts (auto)6.5, Absolute Lymphs (auto) 0.64 L, Nucleated RBC % 0, PT 15.5 H, INR 1.2, Sodium 140, Potassium 3.9, Chloride 104, Carbon Dioxide 22.1, Anion Gap 14, BUN 22 H, Creatinine 0.63 L,Estim Creat Clear Calc 48.72 L, Est GFR (MDRD) Non-Af 91, BUN/Creatinine Ratio 34.8 H, Glucose 116 H, Calcium 9.2, Magnesium 2.1, Total Creatine Kinase 128 Imaging Radiology Impression Wrist X-Ray 08/23/24 07:31 IMPRESSION: Comminuted impacted fracture of the distal radius with intra-articular extension. Reading Location: [facility] Independent review of the films shows comminuted distal radius fracture with impaction and slight loss of radial height and inclination however, patient already has Luno?radial pyln-ij-bvbe osteoarthritis with subchondral sclerosis additionally there is scapholunate widening appreciated. Brain CT 08/23/24 08:06 IMPRESSION: 1. Generalized brain atrophy. 2. Small vessel ischemic/degenerative changes. 3. No acute intracranial hemorrhage, midline shift or mass effect. If symptoms persist, further evaluation with MRI is recommended. Reading Location: [facility] Assessment & Plan Assessment/Plan (1) Closed fracture of distal end of left radius: PLAN: Natural history of the disease process and treatment options were discussed with the patient.Patient has chronic wrist osteoarthritis with acutedistal radius fracture. Based on fracture alignment, age and patient's health we discussed operative versus nonoperative interventions. At this time nonoperative treatment plan was recommended as best course of action. Patient is currently in a splint. She will maintain the splint until she is able to follow- up in the office at that time the swelling is decreased will transfer herto a cast. Patient will likely need 6 to 8 weeks of immobilization followed by intense rehabilitation to return restore range of motion and strength of the wrist. Continue to follow the fracture clinically to make sure that fracture alignment remains stable. Loss of alignment of the fracture may result in need for surgical open or close reduction. Patient demonstrates an understanding wish to proceed in this treatment manner. She is currently admitted to the hospital due to the fact that she has difficulty with getting in and out of seated position. I did discuss the patient she may benefit greatly from a motorized lift chair at home. Additionally we will allow the patient to bear weight through the elbow however she can do no weightbearing to the left wrist. This would allow for a platform walker with weightbearing to the elbow on the left. Patient demonstrates an understanding and does wish to proceed in this manner she is happy with current treatment plan. Please have the patient contact my office for follow-up 2 weeks after injury. If patient remains in nursing facility they can contact my office and we can obtain remote x-rays and direct carein that manner. [facility] Office: 08/23/24 1404 Cosigner Signature (if applicable): CC: Dr. Claudine Durán MD~ Signed [facility]07-05-2025 History and physical note Author Erasmo House [facility] Note Date/Time August 23, 2024 11:12 am [facility] Medical Records Department [address] [place] [address] H&P Exam - Hospitalist 08/23/24 1023 MR#: [id number] Acct: [id number] Name: HAYDEE BUSTAMANTE Rep #:[id number] : 1945 79 From: Erasmo Castañeda PCP: Dr. Claudine Durán MD Status:LUKE BORRERO Location: MS3 [id number] HPI - General General Date of Admission: 08/23/24 Date of Service: 08/23/24 Chief Complaint: Fall over left hand and left wrist fracture. HPI Narrative HAYDEE BUSTAMANTE, is a 79 F came to ED after she had a fall about 1:30 AM in the bedroom while she woke up to go to bathroom. She fell on her left side and alsohit her head. She has bruise around the left eye, left wrist pain and swelling. She called to seek help around 6 AM and brought to ED by EMS. She denies any headache. Mechanism of fall is unclear she is not sure how she fell down. She denies lightheaded dizziness chest discomfort shortness of breath, vertigo or loss of consciousness. Denies prior history of seizure. In ED she was found fracture of left distal radius, facial bruise and therefore admitted. Vitals lab and x-ray done in the ED were reviewed. [facility] Medical History Hypertension GERD (gastroesophageal reflux disease) Pericardial effusion CHF (congestive heart failure) Wears glasses Walker as ambulation aid Ambulates [...] venous thrombosis) Pulmonary embolism Colitis COVID-19 Histoplasmosis Home Medications ?Medication ?Instructions ?Recorded ?Last Taken ?Type multivitamin (Daily Multi-Vitamin 1 tab PO DAILY suppl ement 03/19/23 10/01/23 History tablet) vitamins A,C,C-bpsw-edfkpb 2,148 2 tab PO BID eye heal th 03/19/23 10/01/23 History mcg-113 mg-45 mg-17.4 mg tablet (PreserVision AREDS) gabapentin 300 mg capsule 300 mg PO Q12 nerve pain #0 caps 04/05/23 10/01/23 Rx potassium chloride 20 mEq 20 meq PO BIDCM #0 tabs 03/0 10/1210/01/23 Rx tablet,extended release(part/cryst) fluticasone propionate 50 1 spray intranasal DAILY 10/02/23 History mcg/actuation nasal spray,suspension furosemide 20 mg tablet 20 mg PO DAILY PRN edema 10/01/23 History tiotropium bromide 2.5 2 puff inhalation DAILY 07/2110/02/23 History mcg/actuation mist for inhalation (Spiriva Respimat) diclofenac sodium 1 % topical gel 4 g topical BID PRN PRN knee pain 08/18/23 10/02/23 Rx (Voltaren Arthritis Pain) #100 grams omega 7-pge-iyj-fish oil 1,200 mg 1 cap PO DAILY 09/30 Unknown History (144 mg-216 mg) capsule (Fish Oil) albuterol sulfate 90 mcg/actuation 2 puff inhalation Q 4H PRN PRN 06/13/24 Unknown History aerosol inhaler shortness of breath or wheez ing cholecalciferol (vitamin D3) 25 25 mcg PO QDAY 5 Unknown History mcg (1,000 unit) capsule fluticasone 250 mcg-salmeterol 50 1 inh inhalation BID 06/13/24 Unknown History mcg/dose blistr powdr for inhalation (Wixela Inhub) folic acid 0.8 mg capsule 0.8 mg PO QDAY 06/13/24 Unkn own History methotrexate sodium 2.5 mg tablet 10 mg PO QWEEK 06/13 Unknown History sulfasalazine 500 mg 1 g PO BID 06/13/24 Unknown History tablet,delayed release acetaminophen 500 mg tablet 1,000 mg PO TID Pain Score 1-10 06/20/24 Unknown History clindamycin HCl 300 mg capsule 600 mg (2 x 300 mg) PO ONCE #2 caps 06/20/24 Unknown Rx ferrous sulfate 325 mg (65 mg 325 mg PO QDAY 06/20/24 Unknown History iron) tablet metoprolol succinate 25 mg 25 mg PO QDAY #30 tabs 06/21 Unknown Rx tablet,extended release 24 hr folic acid 1 mg tablet 1 mg PO DAILY 08/23/24 Unkno wn History warfarin 1 mg tablet mg PO 08/23/24 Unknown Histo ry warfarin 5 mg tablet See Rx Instructions .Route . COMPLEX 08/23/24 Unknown History Held on 10/01/23. Instructions: ON HOLD FOR COLONOSCOPY Allergy/AdvReac Type Severity Reaction Status Date / Time Penicillins Allergy Severe Anaphylaxis Verified 06/20/24 10:10 Surgical History History of transcatheter aortic valve replacement (TAVR) History of back surgery History of esophagogastroduodenoscopy (EGD) History of tonsillectomy History of embolic filter insertion Hx of foot surgery Social History household members: none Smoking Status: Former smoker alcohol intake: never substance use type: does not use ROS ROS Narrative Constitutional: Chronic history of RA and arthritis. Denies acute onset of fatigue and weakness. No fever. HEENT: Reports systems reviewed and no addt'l complaints, except as documented Respiratory/Chest: No acute shortness of breath or respiratory distress or wheezing. COPD and history of histoplasmosis. Completed itraconazole for 1 year. CVS: No chest pain or tightness or pressure. Gastrointestinal: Denies coffee ground emesis, hematemesis or vomiting Genitourinary: Denies burning urination or new urinary tract symptoms Musculoskeletal: Chronic knee arthritis. Rest as described in HPI Neurologic: Denies seizure-like symptoms. No syncope. skin: No ulcer. No rash Endocrinology: Reports systems reviewed and no addt'l complaints, except as documented Hematologic/Lymphatic: Reports systems reviewed and no addt'l complaints, exceptas documented Rest 14 ROS are negative except as mentioned in HPI Vital Signs Vital Signs Vital Signs: 08/23/24 07:18 08/23/24 07:31 08/23/24 09:18 Temperature 98.6 F Temperature Source Oral Pulse Rate 84 64 Respiratory Rate 18 18 Respiratory Effort Normal Respiratory Depth Normal Respiratory Pattern Normal Blood Pressure 113/63 134/76 H Blood Pressure Mean 79 95 Pulse Ox 98 98 Oxygen Delivery Method Room Air Room Air Room Air Weight Weight: 138 lb 7.205 oz Body Mass Index (BMI) 24.5 Physical Exam Narrative General: Alert, Oriented x3, Cooperative HEENT: Atraumatic, PERRLA, EOMI, Normocephalic. Oral: Oral mucosa moist no Gingival or Mucosal Lesions/ Ulcerations Neck: Supple, No JVD, Negative Carotid Bruits Chest wall/Lungs: Air entry diminished in bilateral lung bases. Very fine expiratory rhonchi. Cardiovascular: Regular rate and rhythm, Normal S1,S2, No obvious M/G/R Abdomen: Bowel Sounds Present, Soft, Non Tender, Non-Distended : No dysuria. No renal angle tenderness. No suprapubic tenderness. Extremities: No edema, Capillary Refill Less than 3 Seconds Skin: Left facial forearm bandaged with Daniella wrap bandage. Mild swelling and tenderness. Musculoskeletal: Bilateral knee valgus deformity with degenerative arthritis. Chronic RA with bony deformity of wrist and hand joints. Left hand and wrist issplinted. Neurological: Cranial nerves II-XII grossly intact, DTR 2+/4. No acute focal neurological deficit. Psych/Mental Status: Normal Affect, Appropriate. Results Lab / Micro Data 08/23/24 07:45 08/23/24 07:45 Labs: Laboratory Results - last 24 hr 08/23/24 07:45: WBC 7.9, RBC 3.52 L, Hgb 11.3 L, Hct 33.9 L, MCV 96.3, MCH 32.1 H, MCHC 33.3, RDW Std Deviation 58.6 H, RDW Coeff of Catarino 17.0 H, Plt Count 182, MPV 10.9, Immature Gran % (Auto) 0.500, Neut % (Auto) 82.3 H, Lymph % (Auto) 8.1L, Maury % (Auto) 8.6, Eos % (Auto) 0.1, Baso % (Auto) 0.4, Absolute Neuts (auto)6.5, Absolute Lymphs (auto) 0.64 L, Nucleated RBC % 0, PT 15.5 H, INR 1.2, Sodium 140, Potassium 3.9, Chloride 104, Carbon Dioxide 22.1, Anion Gap 14, BUN 22 H, Creatinine 0.63 L, Estim Creat Clear Calc 48.72 L, Est GFR (MDRD) Non-Af 91, BUN/Creatinine Ratio 34.8 H, Glucose 116 H, Calcium 9.2, Total Creatine Kinase 128 Imaging Radiology Impression Wrist X-Ray 08/23/24 07:31 IMPRESSION: Comminuted impacted fracture of the distal radius with intra-articular extension. Reading Location: [facility] Brain CT 08/23/24 08:06 IMPRESSION: 1. Generalized brain atrophy. 2. Small vessel ischemic/degenerative changes. 3. No acute intracranial hemorrhage, midline shift or mass effect. If symptoms persist, further evaluation with MRI is recommended. Reading Location: [id number] Assessment & Plan Assessment/Plan (1) Closed fracture of distal end of left radius: (2) Closed head injury without concussion: PLAN: Plan This 72-year-old female was brought to ED when she fell down, mechanism unclear resulting into left wrist fracture. 1. Acute debility of ADL due to closed fracture of distal end of left radius/Colles' fracture: [facility]. 3 views ofx-ray left wrist x-ray reviewed shows comminuted impacted fracture of distal radius with intra-articular extension. ED patient is splinted in the left wristbut she has trouble in functioning and doing her house chores as she lives alone. Orthopedic surgeon Dr. Molina consulted by ED physician. Pain control PT and OT ordered. 2. Closed head injury without concussion from fall: Patient denies LOC. CT brain reviewed does not show acute intracranial abnormality. Generalized brain atrophy. 3. Severe aortic stenosis status post TAVR: On metoprolol succinate 25 mg daily, furosemide 20 mg daily 4. Chronic DVT status post IVC filter: Patient on warfarin. INR is 1.2. Continue home regimen of warfarin. 5 mg on Sunday and and 6 mg on rest of the days. 5. COPD/history of histoplasmosis twice: Patient completed treatment of itraconazole for 1 year for histoplasmosis about few months ago. Currently not in COPD exacerbation. Continue home maintenance inhaler and as needed albuterol. Incentive spirometry and PEP. 6. Chronic RA and degenerative arthritis: Patient on methotrexate, folic acid, sulfasalazine. She is not on biologic. She also has chronic degenerative arthritis of knees. She can still walk. 7. Anemia of chronic disease: H&H 11.3/34%. MCV 96.3. Platelet count 182K. Patient was last admitted in August 08 4 GI bleed. EGD on 08/09/2023 showed normalesophagus, small hiatus hernia, nonbleeding duodenal ulcer with no stigmata of bleeding. 3 bleeding in the dysplastic lesion seen jejunum treated with heater probe. Patient on ferrous sulfate. Vitamin C added. Continue folic acid. 8. DVT prophylaxis: INR 1.2, subtherapeutic. Continue home regimen. Monitor INR daily Living will/advanced directive/end of life care: Patient does have living will or advanced directive. She is a . After discussion of benefits/risks procedures involved with full code, DNR CC arrest and DNR CC, the patient optedfor full code. Patient does want artificial life support including intubation, tube feed, ventilator and/chest compression, central venous catheter, vasopressor and DC shock if needed Total time spent in [id number] encounter in discussion of advanced directive 17 minutes. Laboratory Results 08/23/24 07:45: WBC 7.9, RBC 3.52 L, Hgb 11.3 L, Hct 33.9 L, MCV 96.3, MCH 32.1 H, MCHC 33.3, RDW Std Deviation 58.6 H, RDW Coeff of Catarino 17.0 H, Plt Count 182, MPV 10.9, Immature Gran % (Auto) 0.500, Neut % (Auto) 82.3 H, Lymph % (Auto) 8.1L, Maury % (Auto) 8.6, Eos % (Auto) 0.1, Baso % (Auto) 0.4, Absolute Neuts (auto)6.5, Absolute Lymphs (auto) 0.64 L, Nucleated RBC % 0, PT 15.5 H, INR 1.2, Sodium 140, Potassium 3.9, Chloride 104, Carbon Dioxide 22.1, Anion Gap 14, BUN 22 H, Creatinine 0.63 L, Estim Creat Clear Calc 48.72 L, Est GFR (MDRD) Non-Af 91, BUN/Creatinine Ratio 34.8 H, Glucose 116 H, Calcium 9.2, Total Creatine Kinase 128 Clinical Impression(s) from Imaging Studies Wrist X-Ray 08/23/24 07:31 IMPRESSION: Comminuted impacted fracture of the distal radius with intra-articular extension. Reading Location: [facility] Brain CT 08/23/24 08:06 IMPRESSION: 1. Generalized brain atrophy. 2. Small vessel ischemic/degenerative changes. 3. No acute intracranial hemorrhage, midline shift or mass effect. If symptoms persist, further evaluation with MRI is recommended. Reading Location: [id number] Charges/Coding Visit Charges Inpatient E&M: 68817 Init Hosp L3 Procedures Hospitalists Procedures: 90760 Advncd Care Plan 30 Min 08/23/24 1112 <Electronically signed by Erasmo House MD> Cosigner Signature (if applicable): CC: Dr. Claudine Durán MD; Dr. Erasmo House MD~ Signed [facility] Work Phone: [phone] 186-693407-05-2025 Discharge summary Author Ron Mariscal [facility] Note Date/Time August 23, 2024 10:29 am [facility] Medical Records Department [address] [place] [address] Emergency Department Summary 08/23/24 MR#: [id number] Acct: [id number] Name: HAYDEE BUSTAMANTE Rep #:[id number] : 1945 79 From: Ron Mariscal MD PCP: Dr. Claudine Durán MD Status:RE G ER Location: ED HPI HPI - Fall History of Present Illness Chief Complaint: Fall Informant: patient and EMS Narrative Narrative: 79-year-old female presents to the ER by EMS after a fall. She arrives a littleafter 7 AM, she states the fall occurred at around 1:30 AM. 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 She injured her left wrist as she used her left upper extremity to try to catch herself when she was falling, and injured her left face mildly. She denies having a headache. She is on warfarin. She states shegot up out of bed to go brush her teeth, and she is not sure why she fell, but she denies any prodromal symptoms such as lightheadedness, dyspnea, chest discomfort, and denies any loss of consciousness at any point in time or syncope. [id number]. Lives by herself. 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 She states this morning she laid there formost of the morning except for when she scooted herself around with her right arm and legs to get to telephone and to get to the front door and unlock the door for the EMS personnel. She states typically she would have difficulty getting up off of the floor but would be able to if her wrist was not injured [facility] Medical History Hypertension GERD (gastroesophageal reflux disease) Pericardial effusion CHF (congestive heart failure) Wears glasses Walker as ambulation aid Ambulates [...] venous thrombosis) Pulmonary embolism Colitis COVID-19 Histoplasmosis Home Medications ?Medication ?Instructions ?Recorded ?Last Taken ?Type multivitamin (Daily Multi-Vitamin 1 tab PO DAILY suppl ement 03/19/23 10/01/23 History tablet) vitamins A,C,J-mnpa-ekiftg 2,148 2 tab PO BID eye heal th 03/19/23 10/01/23 History mcg-113 mg-45 mg-17.4 mg tablet (PreserVision AREDS) gabapentin 300 mg capsule 300 mg PO Q12 nerve pain #0 caps 04/05/23 10/01/23 Rx potassium chloride 20 mEq 20 meq PO BIDCM #0 tabs 03/0 10/1210/01/23 Rx tablet,extended release(part/cryst) fluticasone propionate 50 1 spray intranasal DAILY 10/02/23 History mcg/actuation nasal spray,suspension furosemide 20 mg tablet 20 mg PO DAILY PRN edema 10/01/23 History tiotropium bromide 2.5 2 puff inhalation DAILY 07/2110/02/23 History mcg/actuation mist for inhalation (Spiriva Respimat) diclofenac sodium 1 % topical gel 4 g topical BID PRN PRN knee pain 08/18/23 10/02/23 Rx (Voltaren Arthritis Pain) #100 grams warfarin 5 mg tablet See Rx Instructions .Route 0 08/18/23 09/27/23 Rx Held on 10/01/23. .COMPLEX #30 tabs Instructions: ON HOLD FOR COLONOSCOPY omega 1-kyf-jcc-fish oil 1,200 mg 1 cap PO DAILY 09/30 Unknown History (144 mg-216 mg) capsule (Fish Oil) albuterol sulfate 90 mcg/actuation 2 puff inhalation Q 4H PRN PRN 06/13/24 Unknown History aerosol inhaler cholecalciferol (vitamin D3) 25 25 mcg PO QDAY 5 Unknown History mcg (1,000 unit) capsule fluticasone 250 mcg-salmeterol 50 1 inh inhalation BID 06/13/24 Unknown History mcg/dose blistr powdr for inhalation (Wixela Inhub) folic acid 0.8 mg capsule 0.8 mg PO QDAY 06/13/24 Unkn own History methotrexate sodium 2.5 mg tablet 10 mg PO QWEEK 06/13 Unknown History spironolactone 25 mg tablet 25 mg PO DAILY 06/13/24 Un known History sulfasalazine 500 mg 1 g PO BID 06/13/24 Unknown History tablet,delayed release acetaminophen 500 mg tablet 1,000 mg PO TID Pain Score 1-10 06/20/24 Unknown History clindamycin HCl 300 mg capsule 600 mg (2 x 300 mg) PO ONCE #2 caps 06/20/24 Unknown Rx ferrous sulfate 325 mg (65 mg 325 mg PO QDAY 06/20/24 Unknown History iron) tablet metoprolol succinate 25 mg 25 mg PO QDAY #30 tabs 06/21 Unknown Rx tablet,extended release 24 hr Allergy/AdvReac Type Severity Reaction Status Date / Time Penicillins Allergy Severe Anaphylaxis Verified 06/20/24 10:10 Surgical History History of transcatheter aortic valve replacement (TAVR) History of back surgery History of esophagogastroduodenoscopy (EGD) History of tonsillectomy History of embolic filter insertion Hx of foot surgery Social History household members: none Smoking Status: Former smoker alcohol intake: never substance use type: does not use ROS ROS ED Constitutional Constitutional ED: Denies chills or fever(s) Eyes Eyes: Denies blurry vision, change in vision or diplopia ENT ENT ED: Reports facial pain; Denies ear pain, epistaxis or rhinorrhea Cardiovascular Cardiovascular: Denies chest pain or palpitations Respiratory/Chest Respiratory/Chest: Denies cough or dyspnea Gastrointestinal Gastrointestinal: Denies abdominal pain, diarrhea, melena, nausea or vomiting Genitourinary Genitourinary ED: Denies dysuria or hematuria Musculoskeletal Musculoskeletal: Reports arthralgias and extremity pain; Denies back pain or neck pain Integumentary Reports Abrasions; Denies abscess, laceration or rash Neurologic Neurologic: Denies confusion, headache(s), paresthesias or weakness EXAM Physical Exam Const Vital Signs: 08/23/24 07:18 08/23/24 07:31 08/23/24 09:18 Temperature 98.6 F Temperature Source Oral Pulse Rate 84 64 Respiratory Rate 18 18 Respiratory Effort Normal Respiratory Depth Normal Respiratory Pattern Normal Blood Pressure 113/63 134/76 H Blood Pressure Mean 79 95 Pulse Ox 98 98 Oxygen Delivery Method Room Air Room Air Room Air Positive well nourished and well developed General Appearance ED: well developed and NAD HEENT Reports TM's clear and nasal mucous membranes and turbinates normal HEENT Narrative: Abrasion left lateral superior orbital brim without laceration or crepitance, there is no facial bony tenderness. There is a slight amount of ecchymosis justbeneath the left eye. There is no infraorbital hypoesthesia. There is no nasaltenderness or evidence of epistaxis. No Elias sign, no raccoon eyes, no CSF otorhinorrhea, no hemotympanum. trauma and contusion Face and Sinus: Negative for facial tenderness Tympanic Membrane ED: Yes TM's clear Eyes PERRL and EOMs intact bilaterally Eyes Narrative: No evidence of globe trauma or hyphema. Visual Acuity: other Other Details: no entrapment or pain with extraocular movements Neck full ROM and supple General: Negative for tenderness Chest Wall inspection of chest normal and palpation of chest normal Chest: symmetrical chest wall rise; Negative for crepitus or tenderness Resp normal respiratory effort and clear to auscultation bilaterally Percussion: other equal BS bilat Cardio no murmurs Rate: regular rate; Negative for tachycardic Rhythm: regular rhythm GI normal to inspection, nondistended, normoactive bowel sounds, soft to palpation and non-tender Back/Spine normal ROM Cervical Spine: Negative for cervical spine tenderness Thoracic Spine / Upper Back: Negative for thoracic spinal tenderness Lumbar Spine / Lower Back: Negative for lumbar spinal tenderness Extremity Extremity Narrative: Ecchymosis and mild swelling about the left wrist, there is no deformity, but very limited range of motion here due to pain. It is tender at the distal radius but not in the snuffbox, and the distal ulna is nontender but the base ofthe fifth metacarpal is. Full range of motion of all joints otherwise of all 4 extremities including the left elbow, although she has pain in the wrist with supination pronation which is limited. There is palpable and audible creaking when she bends her knees but she is able. General Extremety ED: Yes tenderness Neuro oriented x3, CN's II-XII intact bilaterally, moves all extremities, no focal motor deficits and no sensory deficits noted [place] Coma Scale: document GCS findings Spontaneous Obeys Commands Oriented 15 Sensorium / Orientation: awake and alert Psych mental status grossly normal and thought process normal Skin no wounds Skin Narrative: Abrasion left face no other evidence of trauma to the skin. Lesions: no lesions Rashes: no rashes MDM MDM MDM Narrative Medical decision making narrative: I ordered a spot check PT/INR, but upon reviewing her past medical history and seeing history of thrombocytopenia and anemia, and although her fall sounds mechanical she is not exactly sure why she fell, so I thought it was more than reasonable to also obtain blood counts and chemistries. She states her last INRwas a week or so ago and it was low so she is scheduled to have it rechecked in another week or 2 from now. It is 1.2 and the rest of her labs are unremarkable. Her head CT on my interpretation is negative for acute hemorrhageor injury radiology in agreement. 3 view left wrist x-ray on my interpretation shows a comminuted impacted distal radius fracture there is no intra-articular component. Radiology also in agreement. She was splinted see the procedure note. I offered admission and placement if she feels like she cannot function with this at home. She went to the bathroom and tried to go on her own after splinting, she had trouble and does not feel that she will be able to function on her own at home with regards to ADLs (she is able to ambulate), and agrees luis admitted for evaluation for possible placement/rehab. Discussed with orthopedics and hospitalist. Lab Data Attestation: I reviewed the patient's lab results. Labs: Laboratory Results - last 24 hr 08/23/24 07:45 WBC 7.9 RBC 3.52 L Hgb 11.3 L Hct 33.9 L MCV 96.3 MCH 32.1 H MCHC 33.3 RDW Std Deviation 58.6 H RDW Coeff of Catarino 17.0 H Plt Count 182 MPV 10.9 Immature Gran % (Auto) 0.500 Neut % (Auto) 82.3 H Lymph % (Auto) 8.1 L Maury % (Auto) 8.6 Eos % (Auto) 0.1 Baso % (Auto) 0.4 Absolute Neuts (auto) 6.5 Absolute Lymphs (auto) 0.64 L Nucleated RBC % 0 PT 15.5 H INR 1.2 Sodium 140 Potassium 3.9 Chloride 104 Carbon Dioxide 22.1 Anion Gap 14 BUN 22 H Creatinine 0.63 L Estim Creat Clear Calc 48.72 L Est GFR (MDRD) Non-Af 91 BUN/Creatinine Ratio 34.8 H Glucose 116 H Calcium 9.2 Total Creatine Kinase 128 Radiography Diagnostic Testing: Clinical Impression(s) from Imaging Studies Wrist X-Ray 08/23/24 07:31 IMPRESSION: Comminuted impacted fracture of the distal radius with intra-articular extension. Reading Location: [facility] Brain CT 08/23/24 08:06 IMPRESSION: 1. Generalized brain atrophy. 2. Small vessel ischemic/degenerative changes. 3. No acute intracranial hemorrhage, midline shift or mass effect. If symptoms persist, further evaluation with MRI is recommended. Reading Location: [facility] Management Discussion w/another healthcare provider: Hospitalist and Bar Manager (ezekiel amanda) Procedures Upper Extremity Splints Upper Extremity Splint: Orthoglass (AP short arm, fabricated. Neurovascularly intact distally after placement) Splint Fabrication: Fabricated Location: Left Discharge Plan Dx/Rx/DC Orders Clinical Impression: Closed fracture of distal end of left radius, Closed head injury without concussion, Abrasion of face, Subtherapeutic international normalized ratio (INR), Fall from slip, trip, or stumble, Declining functional status Disposition Disposition: Acute Care Hospital [facility] What to do if you have Problems For any increased pain, shortness of breath, bleeding, nausea or vomiting, chestpain, or any unexpected problems, contact your Primary Care Provider. Call [facility] ([phone]) or report to the closest Emergency Room. Call 911 if necessary. 08/23/24 1029 <Electronically signed by Ron Mariscal MD> Cosigner Signature (if applicable): CC: Dr. Claudine Durán MD ~ Signed [facility] Work Phone: [phone] 424-435607-05-2025 History and physical note [facility] Medical Records Department [address] [place] [address] H&P Exam - Hospitalist 08/23/24 1023 MR#: [id number] Acct: [id number] Name: HAYDEE BUSTAMANTE Rep #:[id number] : 1945 79 From: Erasmo Castañeda PCP: Dr. Claudine Durán MD Status:[facility] Location: [place] [address] HPI - General General Date of Admission: 08/23/24 Date of Service: 08/23/24 Chief Complaint: Fall over left hand and left wrist fracture. HPI Narrative HAYDEE BUSTAMANTE, is a 79 F came to ED after she had a fall about 1:30 AM in the bedroom while she woke up to go to bathroom. She fell on her left side and alsohit her head. She has bruise around the left eye, left wrist pain and swelling. She called to seek help around 6 AM and brought to ED by EMS. She denies any headache. Mechanism of fall is unclear she is not sure how she fell down. She denies lightheaded dizziness chest discomfort shortness of breath, vertigo or loss of consciousness. Denies prior history of seizure. In ED she was found fracture of left distal radius, facial bruise and therefore admitted. Vitals lab and x-ray done in the ED were reviewed. [facility] Medical History Hypertension GERD (gastroesophageal reflux disease) Pericardial effusion CHF (congestive heart failure) Wears glasses Walker as ambulation aid Ambulates [...] venous thrombosis) Pulmonary embolism Colitis COVID-19 Histoplasmosis Home Medications ?Medication ?Instructions ?Recorded ?Last Taken ?Type multivitamin (Daily Multi-Vitamin 1 tab PO DAILY suppl ement 03/19/23 10/01/23 History tablet) vitamins A,C,I-lpaf-gzqspy 2,148 2 tab PO BID eye heal th 03/19/23 10/01/23 History mcg-113 mg-45 mg-17.4 mg tablet (PreserVision AREDS) gabapentin 300 mg capsule 300 mg PO Q12 nerve pain #0 caps 04/05/23 10/01/23 Rx potassium chloride 20 mEq 20 meq PO BIDCM #0 tabs 10/1210/01/23 Rx tablet,extended release(part/cryst) fluticasone propionate 50 1 spray intranasal DAILY 10/02/23 History mcg/actuation nasal spray,suspension furosemide 20 mg tablet 20 mg PO DAILY PRN edema 10/01/23 History tiotropium bromide 2.5 2 puff inhalation DAILY 07/2110/02/23 History mcg/actuation mist for inhalation (Spiriva Respimat) diclofenac sodium 1 % topical gel 4 g topical BID PRN PRN knee pain 08/18/23 10/02/23 Rx (Voltaren Arthritis Pain) #100 grams omega 6-fmb-inq-fish oil 1,200 mg 1 cap PO DAILY 09/30 Unknown History (144 mg-216 mg) capsule (Fish Oil) albuterol sulfate 90 mcg/actuation 2 puff inhalation Q 4H PRN PRN 06/13/24 Unknown History aerosol inhaler shortness of breath or wheez ing cholecalciferol (vitamin D3) 25 25 mcg PO QDAY 5 Unknown History mcg (1,000 unit) capsule fluticasone 250 mcg-salmeterol 50 1 inh inhalation BID 06/13/24 Unknown History mcg/dose blistr powdr for inhalation (Wixela Inhub) folic acid 0.8 mg capsule 0.8 mg PO QDAY 06/13/24 Unkn own History methotrexate sodium 2.5 mg tablet 10 mg PO QWEEK 06/13 Unknown History sulfasalazine 500 mg 1 g PO BID 06/13/24 Unknown History tablet,delayed release acetaminophen 500 mg tablet 1,000 mg PO TID Pain Score 1-10 06/20/24 Unknown History clindamycin HCl 300 mg capsule 600 mg (2 x 300 mg) PO ONCE #2 caps 06/20/24 Unknown Rx ferrous sulfate 325 mg (65 mg 325 mg PO QDAY 06/20/24 Unknown History iron) tablet metoprolol succinate 25 mg 25 mg PO QDAY #30 tabs 06/21 Unknown Rx tablet,extended release 24 hr folic acid 1 mg tablet 1 mg PO DAILY 08/23/24 Unkno wn History warfarin 1 mg tablet mg PO 08/23/24 Unknown Histo ry warfarin 5 mg tablet See Rx Instructions .Route . COMPLEX 08/23/24 Unknown History Held on 10/01/23. Instructions: ON HOLD FOR COLONOSCOPY Allergy/AdvReac Type Severity Reaction Status Date / Time Penicillins Allergy Severe Anaphylaxis Verified 06/20/24 10:10 Surgical History History of transcatheter aortic valve replacement (TAVR) History of back surgery History of esophagogastroduodenoscopy (EGD) History of tonsillectomy History of embolic filter insertion Hx of foot surgery Social History household members: none Smoking Status: Former smoker alcohol intake: never substance use type: does not use ROS ROS Narrative Constitutional: Chronic history of RA and arthritis. Denies acute onset of fatigue and weakness. Nofever. HEENT: Reports systems reviewed and no addt'l complaints, except as documented Respiratory/Chest: No acute shortness of breath or respiratory distress or wheezing. COPD and history of histoplasmosis. Completed itraconazole for 1 year. CVS: No chest pain or tightness or pressure. Gastrointestinal: Denies coffee ground emesis, hematemesis or vomiting Genitourinary: Denies burning urination or new urinary tract symptoms Musculoskeletal: Chronic knee arthritis. Rest as described in HPI Neurologic: Denies seizure-like symptoms. No syncope. skin: No ulcer. No rash Endocrinology: Reports systems reviewed and no addt'l complaints, except as documented Hematologic/Lymphatic: Reports systems reviewed and no addt'l complaints, exceptas documented Rest 14 ROS are negative except as mentioned in HPI Vital Signs Vital Signs Vital Signs: 08/23/24 07:18 08/23/24 07:31 08/23/24 09:18 Temperature 98.6 F Temperature Source Oral Pulse Rate 84 64 Respiratory Rate 18 18 Respiratory Effort Normal Respiratory Depth Normal Respiratory Pattern Normal Blood Pressure 113/63 134/76 H Blood Pressure Mean 79 95 Pulse Ox 98 98 Oxygen Delivery Method Room Air Room Air Room Air Weight Weight: 138 lb 7.205 oz Body Mass Index (BMI) 24.5 Physical Exam Narrative General: Alert, Oriented x3, Cooperative HEENT: Atraumatic, PERRLA, EOMI, Normocephalic. Oral: Oral mucosa moist no Gingival or Mucosal Lesions/ Ulcerations Neck: Supple, No JVD, Negative Carotid Bruits Chest wall/Lungs: Air entry diminished in bilateral lung bases. Very fine expiratory rhonchi. Cardiovascular: Regular rate and rhythm, Normal S1,S2, No obvious M/G/R Abdomen: Bowel Sounds Present, Soft, Non Tender, Non-Distended : No dysuria. No renal angle tenderness. No suprapubic tenderness. Extremities: No edema, Capillary Refill Less than 3 Seconds Skin: Left facial forearm bandaged with Daniella wrap bandage. Mild swelling and tenderness. Musculoskeletal: Bilateral knee valgus deformity with degenerative arthritis. Chronic RA with bony deformity of wrist and hand joints. Left hand and wrist issplinted. Neurological: Cranial nerves II-XII grossly intact, DTR 2+/4. No acute focal neurological deficit. Psych/Mental Status: Normal Affect, Appropriate. Results Lab / Micro Data 08/23/24 07:45 08/23/24 07:45 Labs: Laboratory Results - last 24 hr 08/23/24 07:45: WBC 7.9, RBC 3.52 L, Hgb 11.3 L, Hct 33.9 L, MCV 96.3, MCH 32.1 H, MCHC 33.3, RDW Std Deviation 58.6 H, RDW Coeff of Catarino 17.0 H, Plt Count 182, MPV 10.9, Immature Gran % (Auto) 0.500,Neut % (Auto) 82.3 H, Lymph % (Auto) 8.1L, Maury % (Auto) 8.6, Eos % (Auto) 0.1, Baso % (Auto) 0.4, Absolute Neuts (auto)6.5, Absolute Lymphs (auto) 0.64 L, Nucleated RBC % 0, PT 15.5 H, INR 1.2, Sodium 140, Potassium 3.9, Chloride 104, Carbon Dioxide 22.1, Anion Gap 14, BUN 22 H, Creatinine 0.63 L,Estim Creat Clear Calc 48.72 L, Est GFR (MDRD) Non-Af 91, BUN/Creatinine Ratio 34.8 H, Glucose 116 H, Calcium 9.2, Total Creatine Kinase 128 Imaging Radiology Impression Wrist X-Ray 08/23/24 07:31 IMPRESSION: Comminuted impacted fracture of the distal radius with intra-articular extension. Reading Location: [facility] Brain CT 08/23/24 08:06 IMPRESSION: 1. Generalized brain atrophy. 2. Small vessel ischemic/degenerative changes. 3. No acute intracranial hemorrhage, midline shift or mass effect. If symptoms persist, further evaluation with MRI is recommended. Reading Location: [facility] Assessment & Plan Assessment/Plan (1) Closed fracture of distal end of left radius: (2) Closed head injury without concussion: PLAN: Plan This 72-year-old female was brought to ED when she fell down, mechanism unclear resulting into leftwrist fracture. 1. Acute debility of ADL due to closed fracture of distal end of left radius/Colles' fracture: Patient is being admitted on MedSur floor. 3 views ofx-ray left wrist x-ray reviewed shows comminuted impacted fracture of distal radius with intra-articular extension. ED patient is splinted in the left wristbut she has trouble in functioning and doing her house chores as she lives alone. Orthopedic surgeon Dr. Molina consulted by ED physician. Pain control PT and OT ordered. 2. Closed head injury without concussion from fall: Patient denies LOC. CT brain reviewed does not show acute intracranial abnormality. Generalized brain atrophy. 3. Severe aortic stenosis status post TAVR: On metoprolol succinate 25 mg daily, furosemide 20 mg daily 4. Chronic DVT status post IVC filter: Patient on warfarin. INR is 1.2. Continue home regimen of warfarin. 5 mg on Sunday and and 6 mg on rest of the days. 5. COPD/history of histoplasmosis twice: Patient completed treatment of itraconazole for 1 year forhistoplasmosis about few months ago. Currently not in COPD exacerbation. Continue home maintenance inhaler and as needed albuterol. Incentive spirometry and PEP. 6. Chronic RA and degenerative arthritis: Patient on methotrexate, folic acid, sulfasalazine. She is not on biologic. She also has chronic degenerative arthritis of knees. She can still walk. 7. Anemia of chronic disease: H&H 11.3/34%. MCV 96.3. Platelet count 182K. Patient was last admitted in August 08 4 GI bleed. EGD on 08/09/2023 showed normalesophagus, small hiatus hernia, nonbleeding duodenal ulcer with no stigmata of bleeding. 3 bleeding in the dysplastic lesion seen jejunum treated with heater probe. Patient on ferrous sulfate. Vitamin C added. Continue folic acid. 8. DVT prophylaxis: INR 1.2, subtherapeutic. Continue home regimen. Monitor INR daily Living will/advanced directive/end of life care: Patient does have living will or advanced directive. She is a . After discussion of benefits/risks procedures involved with full code, DNR CC arrest and DNR CC, the patient optedfor full code. Patient does want artificial life support including intubation, tube feed, ventilator and/chest compression, central venous catheter, vasopressor and DC shock if needed Total time spent in [id number] encounter in discussion of advanced directive 17 minutes. Laboratory Results 08/23/24 07:45: WBC 7.9, RBC 3.52 L, Hgb 11.3 L, Hct 33.9 L, MCV 96.3, MCH 32.1 H, MCHC 33.3, RDW Std Deviation 58.6 H, RDW Coeff of Catarino 17.0 H, Plt Count 182, MPV 10.9, Immature Gran % (Auto) 0.500,Neut % (Auto) 82.3 H, Lymph % (Auto) 8.1L, Maury % (Auto) 8.6, Eos % (Auto) 0.1, Baso % (Auto) 0.4, Absolute Neuts (auto)6.5, Absolute Lymphs (auto) 0.64 L, Nucleated RBC % 0, PT 15.5 H, INR 1.2, Sodium 140, Potassium 3.9, Chloride 104, Carbon Dioxide 22.1, Anion Gap 14, BUN 22 H, Creatinine 0.63 L, Estim Creat Clear Calc 48.72 L, Est GFR (MDRD) Non-Af 91, BUN/Creatinine Ratio 34.8 H, [id number] H, Calcium 9.2, Total Creatine Kinase 128 Clinical Impression(s) from Imaging Studies Wrist X-Ray 08/23/24 07:31 IMPRESSION: Comminuted impacted fracture of the distal radius with intra-articular extension. Reading Location: [facility] Brain CT 08/23/24 08:06 IMPRESSION: 1. Generalized brain atrophy. 2. Small vessel ischemic/degenerative changes. 3. No acute intracranial hemorrhage, midline shift or mass effect. If symptoms persist, further evaluation with MRI is recommended. Reading Location: [facility] Charges/Coding Visit Charges Inpatient E&M: 45788 Init Hosp L3 Procedures Hospitalists Procedures: 53879 Advncd Care Plan 30 Min 08/23/24 1112 Cosigner Signature (if applicable): CC: Dr. Claudine Durán MD; Dr. Erasmo House MD~ Signed [facility]07-05-2025 Discharge summary [facility] Medical Records Department [address] [place] [address] Emergency Department Summary 08/23/24 MR#: [id number] Acct: [id number] Name: HAYDEE BUSTAMANTE Rep #:[id number] : 1945 79 From: Ron Mariscal MD PCP: Dr. Claudine Durán MD Status:RE G ER Location: ED HPI HPI - Fall History of Present Illness Chief Complaint: Fall Informant: patient and EMS Narrative Narrative: 79-year-old female presents to the ER by EMS after a fall. She arrives a littleafter 7 AM, she states the fall occurred at around 1:30 AM. 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 She injured her left wrist as she used her left upper extremity to try to catch herself when she was falling, and injured her left face mildly. She denies having a headache. She is on warfarin. She states shegot up out of bed to go brushher teeth, and she is not sure why she fell, but she denies any prodromal symptoms such as lightheadedness, dyspnea, chest discomfort, and denies any loss of consciousness at any point in time or sync ope. [id number]. Lives by herself. 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 She states this morning she laid there formost of the morning except for when she scooted herself around with her right arm and legs to get to telephone and to get to the front door and unlock the door for the EMS personnel. She states typically she would have difficulty getting up off of the floor but would be able to if her wrist was not injured [facility] Medical History Hypertension GERD (gastroesophageal reflux disease) Pericardial effusion CHF (congestive heart failure) Wears glasses Walker as ambulation aid Ambulates [...] venous thrombosis) Pulmonary embolism Colitis COVID-19 Histoplasmosis Home Medications ?Medication ?Instructions ?Recorded ?Last Taken ?Type multivitamin (Daily Multi-Vitamin 1 tab PO DAILY suppl ement 03/19/23 10/01/23 History tablet) vitamins A,C,C-joqd-taxczs 2,148 2 tab PO BID eye heal th 03/19/23 10/01/23 History mcg-113 mg-45 mg-17.4 mg tablet (PreserVision AREDS) gabapentin 300 mg capsule 300 mg PO Q12 nerve pain #0 caps 04/05/23 10/01/23 Rx potassium chloride 20 mEq 20 meq PO BIDCM #0 tabs 03/0 10/1210/01/23 Rx tablet,extended release(part/cryst) fluticasone propionate 50 1 spray intranasal DAILY 10/02/23 History mcg/actuation nasal spray,suspension furosemide 20 mg tablet 20 mg PO DAILY PRN edema 10/01/23 History tiotropium bromide 2.5 2 puff inhalation DAILY 07/2110/02/23 History mcg/actuation mist for inhalation (Spiriva Respimat) diclofenac sodium 1 % topical gel 4 g topical BID PRN PRN knee pain 08/18/23 10/02/23 Rx (Voltaren Arthritis Pain) #100 grams warfarin 5 mg tablet See Rx Instructions .Route 0 08/18/23 09/27/23 Rx Held on 10/01/23. .COMPLEX #30 tabs Instructions: ON HOLD FOR COLONOSCOPY omega 5-ndi-tyl-fish oil 1,200 mg 1 cap PO DAILY 09/30 Unknown History (144 mg-216 mg) capsule (Fish Oil) albuterol sulfate 90 mcg/actuation 2 puff inhalation Q 4H PRN PRN 06/13/24 Unknown History aerosol inhaler cholecalciferol (vitamin D3) 25 25 mcg PO QDAY 5 Unknown History mcg (1,000 unit) capsule fluticasone 250 mcg-salmeterol 50 1 inh inhalation BID 06/13/24 Unknown History mcg/dose blistr powdr for inhalation (Wixela Inhub) folic acid 0.8 mg capsule 0.8 mg PO QDAY 06/13/24 Unkn own History methotrexate sodium 2.5 mg tablet 10 mg PO QWEEK 06/13 Unknown History spironolactone 25 mg tablet 25 mg PO DAILY 06/13/24 Un known History sulfasalazine 500 mg 1 g PO BID 06/13/24 Unknown History tablet,delayed release acetaminophen 500 mg tablet 1,000 mg PO TID Pain Score 1-10 06/20/24 Unknown History clindamycin HCl 300 mg capsule 600 mg (2 x 300 mg) PO ONCE #2 caps 06/20/24 Unknown Rx ferrous sulfate 325 mg (65 mg 325 mg PO QDAY 06/20/24 Unknown History iron) tablet metoprolol succinate 25 mg 25 mg PO QDAY #30 tabs 06/21 Unknown Rx tablet,extended release 24 hr Allergy/AdvReac Type Severity Reaction Status Date / Time Penicillins Allergy Severe Anaphylaxis Verified 06/20/24 10:10 Surgical History History of transcatheter aortic valve replacement (TAVR) History of back surgery History of esophagogastroduodenoscopy (EGD) History of tonsillectomy History of embolic filter insertion Hx of foot surgery Social History household members: none Smoking Status: Former smoker alcohol intake: never substance use type: does not use ROS ROS ED Constitutional Constitutional ED: Denies chills or fever(s) Eyes Eyes: Denies blurry vision, change in vision or diplopia ENT ENT ED: Reports facial pain; Denies ear pain, epistaxis or rhinorrhea Cardiovascular Cardiovascular: Denies chest pain or palpitations Respiratory/Chest Respiratory/Chest: Denies cough or dyspnea Gastrointestinal Gastrointestinal: Denies abdominal pain, diarrhea, melena, nausea or vomiting Genitourinary Genitourinary ED: Denies dysuria or hematuria Musculoskeletal Musculoskeletal: Reports arthralgias and extremity pain; Denies back pain or neck pain Integumentary Reports Abrasions; Denies abscess, laceration or rash Neurologic Neurologic: Denies confusion, headache(s), paresthesias or weakness EXAM Physical Exam Const Vital Signs: 08/23/24 07:18 08/23/24 07:31 08/23/24 09:18 Temperature 98.6 F Temperature Source Oral Pulse Rate 84 64 Respiratory Rate 18 18 Respiratory Effort Normal Respiratory Depth Normal Respiratory Pattern Normal Blood Pressure 113/63 134/76 H Blood Pressure Mean 79 95 Pulse Ox 98 98 Oxygen Delivery Method Room Air Room Air Room Air Positive well nourished and well developed General Appearance ED: well developed and NAD HEENT Reports TM's clear and nasal mucous membranes and turbinates normal HEENT Narrative: Abrasion left lateral superior orbital brim without laceration or crepitance, there is no facial bony tenderness. There is a slight amount of ecchymosis justbeneath the left eye. There is no infraorbital hypoesthesia. There is no nasaltenderness or evidence of epistaxis. No Elias sign, no raccoon eyes, no CSF otorhinorrhea, no hemotympanum. trauma and contusion Face and Sinus: Negative for facial tenderness Tympanic Membrane ED: Yes TM's clear Eyes PERRL and EOMs intact bilaterally Eyes Narrative: No evidence of globe trauma or hyphema. Visual Acuity: other Other Details: no entrapment or pain with extraocular movements Neck full ROM and supple General: Negative for tenderness Chest Wall inspection of chest normal and palpation of chest normal Chest: symmetrical chest wall rise; Negative for crepitus or tenderness Resp normal respiratory effort and clear to auscultation bilaterally Percussion: other equal BS bilat Cardio no murmurs Rate: regular rate; Negative for tachycardic Rhythm: regular rhythm GI normal to inspection, nondistended, normoactive bowel sounds, soft to palpation and non-tender Back/Spine normal ROM Cervical Spine: Negative for cervical spine tenderness Thoracic Spine / Upper Back: Negative for thoracic spinal tenderness Lumbar Spine / Lower Back: Negative for lumbar spinal tenderness Extremity Extremity Narrative: Ecchymosis and mild swelling about the left wrist, there is no deformity, but very limited range ofmotion here due to pain. It is tender at the distal radius but not in the snuffbox, and the distal ulna is nontender but the base ofthe fifth metacarpal is. Full range of motion of all joints otherwise of all 4 extremities including the left elbow, although she has pain in the wrist with supinationpronation which is limited. There is palpable and audible creaking when she bends her knees but sheis able. General Extremety ED: Yes tenderness Neuro oriented x3, CN's II-XII intact bilaterally, moves all extremities, no focal motor deficits and no sensory deficits noted Calvin Coma Scale: document GCS findings Spontaneous Obeys Commands Oriented 15 Sensorium / Orientation: awake and alert Psych mental status grossly normal and thought process normal Skin no wounds Skin Narrative: Abrasion left face no other evidence of trauma to the skin. Lesions: no lesions Rashes: no rashes MDM MDM MDM Narrative Medical decision making narrative: I ordered a spot check PT/INR, but upon reviewing her past medical history and seeing history of thrombocytopenia and anemia, and although her fall sounds mechanical she is not exactly sure why she fell, so I thought it was more than reasonable to also obtain blood counts and chemistries. She states her last INRwas a week or so ago and it was low so she is scheduled to have it rechecked in another week or 2 from now. It is 1.2 and the rest of her labs are unremarkable. Her head CT on my interpretation is negative for acute hemorrhageor injury radiology in agreement. 3 view left wrist x-ray onmy interpretation shows a comminuted impacted distal radius fracture there is no intra-articular component. Radiology also in agreement. She was splinted see the procedure note. I offered admission and placement if she feels like she cannot function with this at home. She went to the bathroom and tried to go on her own after splinting, she had trouble and does not feel that she will be able to fun ction on her own at home with regards to ADLs (she is able to ambulate), and agrees luis admitted for evaluation for possible placement/rehab. Discussed with orthopedics and hospitalist. Lab Data Attestation: I reviewed the patient's lab results. Labs: Laboratory Results - last 24 hr 08/23/24 07:45 WBC 7.9 RBC 3.52 L Hgb 11.3 L Hct 33.9 L MCV 96.3 MCH 32.1 H MCHC 33.3 RDW Std Deviation 58.6 H RDW Coeff of Catarino 17.0 H Plt Count 182 MPV 10.9 Immature Gran % (Auto) 0.500 Neut % (Auto) 82.3 H Lymph % (Auto) 8.1 L Maury % (Auto) 8.6 Eos % (Auto) 0.1 Baso % (Auto) 0.4 Absolute Neuts (auto) 6.5 Absolute Lymphs (auto) 0.64 L Nucleated RBC % 0 PT 15.5 H INR 1.2 Sodium 140 Potassium 3.9 Chloride 104 Carbon Dioxide 22.1 Anion Gap 14 BUN 22 H Creatinine 0.63 L Estim Creat Clear Calc 48.72 L Est GFR (MDRD) Non-Af 91 BUN/Creatinine Ratio 34.8 H Glucose 116 H Calcium 9.2 Total Creatine Kinase 128 Radiography Diagnostic Testing: Clinical Impression(s) from Imaging Studies Wrist X-Ray 08/23/24 07:31 IMPRESSION: Comminuted impacted fracture of the distal radius with intra-articular extension. Reading Location: [facility] Brain CT 08/23/24 08:06 IMPRESSION: 1. Generalized brain atrophy. 2. Small vessel ischemic/degenerative changes. 3. No acute intracranial hemorrhage, midline shift or mass effect. If symptoms persist, further evaluation with MRI is recommended. Reading Location: [facility] Management Discussion w/another healthcare provider: Hospitalist and Bar Manager (ezekiel amanda) Procedures Upper Extremity Splints Upper Extremity Splint: Orthoglass (AP short arm, fabricated. Neurovascularly intact distally afterplacement) Splint Fabrication: Fabricated Location: Left Discharge Plan Dx/Rx/DC Orders Clinical Impression: Closed fracture of distal end of left radius, Closed head injury without concussion, Abrasion of face, Subtherapeutic international normalized ratio (INR), Fall from slip, trip, or stumble, Decliningfunctional status Disposition Disposition: Acute Care Hospital [facility] What to do if you have Problems For any increased pain, shortness of breath, bleeding, nausea or vomiting, chestpain, or any unexpected problems, contact your Primary Care Provider. Call [facility] ([phone]) or report tothe closest Emergency Room. Call 911 if necessary. 08/23/24 1029 Cosigner Signature (if applicable): CC: Dr. Claudine Durán MD ~ Signed [facility]07-05-2025 Radiology Diagnostic study note [facility] Imaging Services [address], [place] [address] Wrist min 3 Views MR#: [id number] Acct: [id number] Name: HAYDEE BUSTAMANTE Rep #: [id number] : 1945 F 79 From: Bee Herrera MD PCP: Dr. Claudine Durán MD Status: RE G ER Study:Wrist min 3 Views Date of Exam: Exam# [id number] Ordering Dr: Iain Mariscal MD EXAM: XR Left Wrist Complete, 3 or More Views CLINICAL INDICATION: INJURY TECHNIQUE: Frontal, lateral and oblique views of the left wrist. COMPARISON: No relevant prior studies available. FINDINGS: BONES/JOINTS: Comminuted impacted fracture of the distal radius with intra- articular extension. No dislocation. SOFT TISSUES: Soft tissue swelling. No radiopaque foreign body. RAD/Wrist min 3 Views IMPRESSION: Comminuted impacted fracture of the distal radius with intra-articular extension. Reading Location: [facility] CC: Dr. Ron Mariscal MD; Dr. Claudine Durán MD ~ Inspector Precision: Signed [facility]07-05-2025 Radiology Diagnostic study note [facility] Imaging Services [address] [place] [address] Brain/Head without Contrast MR#: [id number] Acct: [id number] Name: HAYDEE BUSTAMANTE Rep #: [id number] : 1945 F 79 From: Bee Herrera MD PCP: Dr. Claudine Durán MD Status: RE G ER Study:Brain/Head without Contrast Date of Exa m: 08/23/24 Exam# [id number] Ordering Dr: Iain Mariscal MD EXAM: CT Head Without Intravenous Contrast CLINICAL INDICATION: TRAUMA TECHNIQUE: Axial computed tomography images of the head/brain without intravenous contrast. This CTexam was performed using one or more of the following dose reduction techniques: automated exposure control, adjustment of the mA and/or kV according to patient size, and/or use of iterative reconstruction technique. COMPARISON: No relevant prior studies available. FINDINGS: BRAIN AND EXTRA-AXIAL SPACES: The cerebral and cerebellar sulci are prominent consistent with brainatrophy. Areas of decreased attenuation in the deep cerebral white matter are consistent with small vessel ischemic/degenerative changes. No acute intracranial hemorrhage, midline shift or mass effect. If symptoms persist, further evaluation withMRI is recommended. BONES/JOINTS: Unremarkable. No acute fracture. SOFT TISSUES: Unremarkable. SINUSES: Unremarkable as visualized. No acute sinusitis. MASTOID AIR CELLS: Unremarkable as visualized. No mastoid effusion. CT/Brain/Head without Contrast IMPRESSION: 1. Generalized brain atrophy. 2. Small vessel ischemic/degenerative changes. 3. No acute intracranial hemorrhage, midline shift or mass effect. If symptoms persist, further evaluation with MRI is recommended. Reading Location: [facility] CC: Dr. Ron Mariscal MD; Dr. Claudine Durán MD ~ Inspector Precision: Signed [facility]07-03-2025 History of Present illness Narrative* Michael Braxton MD - 08/21/2024 12:46 PM EDT INR low with patient who missed a dose of coumadin. Continue current regimen. Recheck INR in 1 week. * Melissa Means RN - 08/21/2024 12:24 PM EDT patient had inr completed at [facility] patients inr is 1.2 (patients inr range [...] FYI - results being sent to doc middleware consultant due to pcp and team members are [...] to the missed dose [facility] Telephone encounter Note * Telephone Encounter - Geni Cintron LPN - 08/18/2024 2:11 PM EDT Prescription Refill Information The patient has [...] Cintron LPN August 18, 2024 2:11 PM [facility]-30[facility] Miscellaneous Notes* Telephone Encounter - Geni Cintron LPN - 08/18/2024 2:11 PM EDT Prescription Refill Information The patient has [...] 18, 2024 2:11 PM documented in this encounterK[facility]06-18-2025 History of Present illness Narrative* Melissa Means RN - 08/06/2024 4:32 PM EDT pcp agrees with information * Melissa Means RN - 08/06/2024 12:18 PM EDT patient had inr completed at [facility] patients inr is 1.4 (patients inr range [...] not agree with recommendation documented in this encounterK[facility]-10-[facility] History of Present illness Narrative* Jane Rick RN - 07/29/2024 10:08 AM EDT Value based Operations Care Management Heart Failure [...] 29, 2024 10:11 AM documented in this encounterK[facility]06-03-2025 Instructions* Patient Instructions* Brissa Chester APRN.SUSTAINABILITY CONSULTANT - 07/22/2024 2:32 PM EDT We discussed your post-TAVR follow-up: - Your EKG today showed sinus rhythm with some premature atrial contractions, which are not concerning. - Your echocardiogram and lab results are still pending. I will review these and send you a MyChartmessage with the results once they are available. We discussed your medications: - Continue taking Metoprolol Succinate as prescribed. This was started recently to help manage yourheart rate during cardiac rehab. - You are no longer taking Aldactone (spironolactone) or baby aspirin, so these have been removed from your medication list. - Continue taking Gabapentin twice daily, Methotrexate (4 tablets every Sunday), Sulfasalazine (2tablets twice daily), Spiriva inhaler, Wixela inhaler, and [...] during cardiac rehab, but this is being monitored.Continue to keep an eye on your blood [...] You can follow up with a local hay baler in [place] for your annual echocardiogram and routinecare. If you prefer, you can also [facility] - as long as ECHO looks good today, you can follow-up with repeat ECHO in 1 years time - If you experience new or worsening symptoms, such as shortness of breath, chest pain, or leg swelling, please contact your hay baler or our office immediately. Next steps: - Attend your echocardiogram appointment today as scheduled. - I will contact you via Adsvarkt with your echocardiogram and lab results once they are available. - Ensure you have a follow-up plan with a hay baler for your annual echocardiogram and routine care. Please let us know if you have any questions or concerns. Dr Saeed O: [phone] F: [phone] It was my pleasure to participate in the management of your care! Brissa Chester, MSN, LEATHER CARTRIDGE BELT MAKER-SUSTAINABILITY CONSULTANT documented in this encounterK[facility]06-03-2025 History of Present illness Narrative* Brissa Chester APRN.CNP - 07/22/2024 1:30 PM EDT Images from the original note were not included. [facility] Department of Cardiovascular Medicine SECTION OF INTERVENTIONAL CARDIOLOGY OUTPATIENT VISIT DATE July 22, 2024 OUTPATIENT VISIT TYPE ESTABLISHED FOLLOW UP Primary Exceptional Needs Teacher: Juvencio Saeed MD Chief Complaint: Patient here [...] successful TF TAVR via 14 Fr R URBAN GARDENING SPECIALIST with a 25 mm Navitor at nominal [...] the initiation of metoprolol succinate by a hay baler at [facility] a few days ago. She also reports [...] rheumatoid factor (HCC) 03/07/2015 Dr. Hurley ([facility]) Tricuspid regurgitation PAST SURGICAL HISTORY Procedure [...] SPINE FUSN,POST INTERBODY 2012 Dr. Armando at [facility]. Diskectomy and laminectomy PAST SURGICAL HISTORY [...] 1 Puff as instructed two timesa day. warfarin (COUMADIN) 1 mg tablet Take [...] FOLIC ACID ORAL Take by mouth. vit A,C,G-Emnq-Telrpk (OCUVITE PRESERVISION) 2,148 mcg-113 mg-45 mg-17.4mg tab [...] the prior CC echocardiographic exam performed on 01/18/2024 and 05/02/2024 [...] and lab results; will communicate findings via I-frontdesk. - Recommended annual echocardiogram follow-up; patient may choose to follow up locally or at [facility]. 2. Nonrheumatic mitral valve stenosis (I34.2) Previously [...] rehab sessions. Initiated on Metoprolol Succinate by hay baler at [facility]. - Continue Metoprolol Succinate as prescribed. - Monitor BP regularly. 5. 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 6. History of recurrent deep vein thrombosis [...] will review these and send you a MyChartmessage with the results once they are available. We discussed your medications: - Continue taking Metoprolol Succinate as prescribed. This was started recently to help manage yourheart rate during cardiac rehab. - You are no longer taking Aldactone (spironolactone) or baby aspirin, so these have been removed from your medication list. - Continue taking Gabapentin twice daily, Methotrexate (4 tablets every Sunday), Sulfasalazine (2tablets twice daily), Spiriva inhaler, Wixela inhaler, and [...] during cardiac rehab, but this is being monitored.Continue to keep an eye on your blood [...] You can follow up with a local hay baler in [place] for your annual echocardiogram and routinecare. If you prefer, you can also follow [facility] at another [facility] or [facility] - as long as ECHO looks good today, you can follow-up with repeat ECHO in 1 years time - If you experience new or worsening symptoms, such as shortness of breath, chest pain, or leg swelling, please contact your hay baler or our office immediately. Next steps: - Attend your echocardiogram appointment today as scheduled. - I will contact you via MyChart with your echocardiogram and lab results once they are available. - Ensure you have a follow-up plan with a hay baler for your annual echocardiogram and routine care. [...] 4lbs from your dry weight, call your hay baler Exercise: Be active and exercise every day. Smoking and alcohol abstinence/cessation, if applicable Please Visit [email or web address] Questions or Concerns after you go home? Please call Nurse compensation adjuster line at . I spent a total of >45 minutes on the date of the service which included preparing to see the patient, [id number] patient care, completing clinical documentation, obtaining and/or reviewing separately obtained history, performing a medically appropriate examination, counseling and educating the patient/family/caregiver, ordering medications, tests, or procedures, independently interpreting results (not separately reported), communicating results to the patient/family/caregiver, and care coordination (not separately reported). Brissa Chester, BASILIO, LEATHER CARTRIDGE BELT MAKER-SUSTAINABILITY CONSULTANT documented in this encounterK[facility]06-02-2025 History of Present illness Narrative* Twyla Cuevas APRN.CNP - 07/21/2024 11:01 AM EDT Noted, agree, thank you! * Melissa Means RN - 07/21/2024 10:50 AM EDT patient had inr completed at [facility] patients inr is 1.4 (patients inr range [...] not agree with recommendation documented in this encounterK[facility]05-19-2025 History of Present illness Narrative* Melissa Means RN - 07/07/2024 4:47 PM EDT pcp agrees with information * Melissa Means RN - 07/07/2024 11:58 AM EDT patient had inr completed at [facility] patients inr is 1.4 (patients inr range [...] not agree with recommendation documented in this encounterK[facility]05-19-2025 Telephone encounter Note * Telephone Encounter - Melissa Means RN - 07/07/2024 12:00 PM EDT Prescription Refill Information The patient has [...] Means RN July 07, 2024 12:02 PM [facility] Miscellaneous Notes* Telephone Encounter - Melissa Means RN - 07/07/2024 12:00 PM EDT Prescription Refill Information The patient has [...] 07, 2024 12:02 PM documented in this encounterKettering [facility]05-07-2025 History of Present illness Narrative* Pili Benitez RN - 06/25/2024 3:57 PM EDT Images from the original note were not included. CDM Care Path Telephonic Outreach Provider Action/FYI N/A Patient identified by Name and Date of . Discussed care with patient. CDM Update Spoke with the pt. At this time. She has been doing very well. 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 Does not have a sandfill operator surface Biannual Cardiology visit addressed 08/20/2024 05/26/2024 Pili [...] - Bi-Weekly Outreach (Recurring) Disposition Based on compacting machine operator/tender, the following disposition is advised: No action needed Pili Benitez RN June 25, 2024 3:57 PM documented in this encounterK[facility]05-02-2025 Telephone encounter Note * Telephone Encounter - Magalie Ngo LPN - 06/20/2024 3:27 PM EDT [facility] 02/23/23 Patient phones requesting refills as follows: Requested Prescriptions Pending Prescriptions Disp Refills fluticasone (FLONASE) 50 mcg/actuation nasal spray 3 each 3 Sig: Use 1 spray in each nostril once daily. Please review and advise. Magalie Ngo LPN [facility]05-[facility] Miscellaneous Notes* Telephone Encounter - Magalie Ngo LPN - 06/20/2024 3:27 PM EDT [facility] 02/23/23 Patient phones requesting refills as follows: Requested Prescriptions Pending Prescriptions Disp Refills fluticasone (FLONASE) 50 mcg/actuation nasal spray 3 each 3 Sig: Use 1 spray in each nostril once daily. Please review and advise. Magalie Ngo LPN documented in this encounterKettering Health [facility]05-02-2025 Evaluation note* Diagnosis Onset Date Resolution Status Admit Date Mitral stenosis acute June 20, 2024 10:07am Severe aortic stenosis acute Ma 2024 10:07am Hypertension chronic June 20 10:07am [facility] Work Phone: 1(860) 962-848905-02-2025 Evaluation note* Diagnosis Onset Date Resolution Status Admit Date Mitral stenosis acute June 20, 2024 10:07am Severe aortic stenosis acute Ma 2024 10:07am Hypertension chronic June 20 10:07am Closed fracture of distal en d of left radius acute August 23, 2024 1 0:24am Closed head injury without concussion acute August 23, 2024 1 0:24am [facility] Work Phone: 1(641) 111-738705-02-2025 Evaluation note* Diagnosis Onset Date Resolution Status Admit Date Mitral stenosis acute June 20, 2024 10:07am Severe aortic stenosis acute 2024 10:07am Hypertension chronic June 20 10:07am Closed fracture of distal en d of left radius acute August 23, 2024 1 0:24am Closed head injury without concussion acute August 23, 2024 1 0:24am Declining functional status acute August 23, 2024 10:24am [facility] Work Phone: 1(217) 811-941905-02-2025 Evaluation note* Diagnosis Onset Date Resolution Status Admit Date Mitral stenosis acute June 20, 2024 10:07am Severe aortic stenosis acute 2024 10:07am Hypertension chronic June 20 10:07am Closed fracture of distal en d of left radius inactive August 23, 2024 1 0:24am Closed head injury without concussion inactive August 23, 2024 1 0:24am Declining functional status inactive August 23, 2024 10:24am [facility] Work Phone: 1(961) 940-468604-07-2025 History of Present illness Narrative* Pili Benitez RN - 05/26/2024 10:40 AM EDT Transitional Care Management (TCM) Follow-Up Note PCP Update / Actionable Items N/A N/A - No specialty updates needed Patient Source: In-Network Discharge Follow-up outreach: TCM enrolled patient Outreach Summary: TCM Update Spoke with the pt. At this time. Saw SANTY Gutierrezday- slight cough, still feels like she is [...] for cardiac rehab on Sunday. Sent the pt. PAN for CHF to review from what we [...] 26, 2024 10:42 AM documented in this encounterKet[facility]04-03-2025 Telephone encounter Note * Telephone Encounter - Yesenia Weinstein LPN - 05/22/2024 11:34 AM EDT Information requested by Santos with [facility] Cardiac Rehab has been faxed as rquested [facility] Miscellaneous Notes* Telephone Encounter - Yesenia Weinstein LPN - 05/22/2024 11:34 AM EDT Information requested by Santos with [facility] Cardiac Rehab has been faxed as rquested * Telephone Encounter - Lulu Quigley RN - 05/21/2024 11:00 AM EDT Santos with [facility] Cardiac Rehab calls to report that [...] physician. Phone number for further questions is [phone]. Lulu Quigley RN documented in this encounterKettering Health [facility]04-02-2025 Telephone encounter Note * Telephone Encounter - Lulu Quigley RN - 05/21/2024 11:00 AM EDT Santos with [facility] Cardiac Rehab calls to report that [...] physician. Phone number for further questions is [phone]. Lulu Quigley RN [facility]04-01-[facility]25 History of Present illness Narrative* Jimbo Swanson APRN.CNS - 05/20/2024 2:13 PM EDT Continue current dosing and recheck INR 2 weeks, advised of this at visit today. * Melissa Means RN - 05/20/2024 12:53 PM EDT patient had inr completed at [facility] patients inr is 1.6 (patients inr range [...] is just slightly low documented in this encounterKettering [facility]04-01-2025 Instructions* Patient Instructions* Jimbo Swanson APRN.CNS - [...] review all the medicines you take, even sois-xbs-pyxcbty medicines. As you get older, the way [...] have certain medical conditions. documented in this encounterKettering [facility]04-01-2025 History of Present illness Narrative* Jimbo Swanson [...] in the medical record. Outside specialists seen: [facility] Medical/Family history review Reviewed and [...] weeks. She will schedule cardiac rehab at [facility]. She would like to establish with local hay baler either in [place] at [facility]. Provided with pain medication to take at bedtime as needed for pain control affecting her sleep. Discussed possible OIC. She does note need for follow-up endoscopy at ~ 1 year from previous, prefers not to see Dr. Orellana. Jimbo Swanson APRN.TYLOR documented in this encounterKettering Health [facility]ble03-31-2025 History of Present illness Narrative* Pili Benitez, RN - 05/19/2024 11:07 AM EDT Transitional [...] a little hoarse today People in her mormonism group are also sick She vacuumed her [...] so she is very involved in her mormonism right now. No new SDOH concerns were [...] 19, 2024 11:12 AM documented in this encounterKettering Health [facility]ble03-24-2025 History of Present illness Narrative* Pili Benitez [...] confirmed she has since spoke with her LABEL CUTTER about that. 1.7-2.0 range established with her doctor as her desired range for her INR. Her ATB is completed that she was discharged on. She tolerated that well with no complaints. She's been getting out and going to mormonism and her choir practices. 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 [facility]03-24-[facility]25 Miscellaneous Notes* Telephone Encounter - Yesenia Weinstein [...] when INR > 2.0 documented in this encounterKettering Health [facility]ble03-21-2025 Telephone encounter Note * Telephone Encounter - Jimbo Swanson APRN.CNS - 05/09/2024 3:24 PM EDT Recommend continue with current dosing unchanged. Can check INR next week or Sunday or keep her scheduled appointment in Coumadin clinic on May 20. [facility]-21-[facility] Telephone encounter Note* Telephone Encounter - Yesenia Weinstein LPN - 05/09/2024 2:13 PM EDT Spoke with patient. Patient states she was released from the hospital on Sunday and she resumed her coumadin on Sunday. Her current dosing is coumadin 5 mg every day except on & Sun in which she takes 6 mg. No other finding per patient. [facility]-21-[facility] Telephone encounter Note* Telephone Encounter - Yesenia Weinstein LPN - 05/09/2024 2:07 PM EDT ----- Message from Jimbo Timmons APRN.CNS sent at 05/09/2024 1:07 PM EDT ----- Check on current dosing of check on current dosing of Coumadin and when resumed. 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 She is to stop Aspirin when INR > 2.0 [facility]03-21-[facility] Progress note* Result Encounter Note - Jimbo Swanson APRN.CNS - 05/09/2024 1:07 PM EDT Check on current dosing of check on current dosing of Coumadin and when resumed. 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 She is to stop Aspirin when INR > 2.0 [facility]03-17-2025 History of Present illness Narrative* Pili Benitez RN - 05/05/2024 10:32 AM EDT Transition Care Management (TCM) Initial Outreach PCP Update / Actionable Items N/A HRTIC TCM Home Visit Referral Source of Stratification: TCM HUB Hospital Admission Status: Discharged Readmission Risk Score: 10% Patient's zip code: [address] Is zip code within program service area: [...] pt. And confirmed upcoming appts. Went to Exceptional Needs Teacher office this morning- everything going well since [...] Cardiac rehab will be taking place at [facility]- She will call them to schedule She has good support from her mormonism that help her get to her appts [...] TCM outreach phone calls Patient discharged from [facility] Discharge date: 05/03/24 Admitted for: TAVR procedure Readmission Risk: 10 Value-Based Contract: Tinotsimeon DELGADO Contact: Contact made with patient: Yes Hi, my name is Pili Benitez RN and I am calling from the [facility] on behalf of your PrimaryCare Provider, Claudine [...] I will send your request to a recruiting scheduler who will contact and assist you [...] 05, 2024 10:45 AM documented in this encounterKettering Health [facility]ble03-17-2025 Instructions* Patient Instructions* Adalid Clark APRN.SANTY - 05/05/2024 8:34 AM EDT Follow up/Disposition: [...] 4lbs from your dry weight, call your hay baler Exercise: Be active and exercise every day. Smoking and alcohol abstinence/cessation, if applicable Heart Failure Education Booklet: information given previously. Please Visit [email or web address] documented in this encounterKettering Health [facility]03-17-2025 History of Present illness Narrative* Adalid Clark APRN.CNP - 05/05/2024 8:14 AM EDT Images from the original note were not included. [facility] Department of Cardiovascular Medicine SECTION OF INTERVENTIONAL CARDIOLOGY OUTPATIENT VISIT DATE May 05, 2024 OUTPATIENT VISIT TYPE ESTABLISHED FOLLOW UP Primary Exceptional Needs Teacher: Dr. Saeed Chief Complaint: Patient here for cardiac follow up evaluation History of Present Illness: Patient is a 78 year old female who presents for follow up visit today. 05/02/2024 s/p TF TAVR via 14 Fr R URBAN GARDENING SPECIALIST with a 25 mm Navitor Reports has [...] s/p TF TAVR via 14 Fr R URBAN GARDENING SPECIALIST with a 25 mm Navitor -Echo post trace AI, gradients 12/6mmHg HTN disseminated histoplasmosis (ongoing treatment with undetectable histo antigen 12/19) VTE s/p IVC filter (warfarin) GIB in July from duodenal ulcer s/p cautery RA (but off treatment d/t histoplasmosis) COPD ASSESSMENT/ IMPRESSION 05/02/2024 s/p TF TAVR via 14 Fr R URBAN GARDENING SPECIALIST with a 25 mm Navitor Reports has [...] 4lbs from your dry weight, call your hay baler Exercise: Be active and exercise every day. Smoking and alcohol abstinence/cessation, if applicable Heart Failure Education Booklet: information given previously. Please Visit [email or web address] I spent a total of >35 minutes on the date of the service which included preparing to see the patient, ffwu-[id number] patient care, completing clinical documentation, obtaining and/or reviewing separately obtained history, performing a medically appropriate examination, counseling and educating the patient/family/caregiver, and ordering medications, tests, or procedures. Adalid Clark APRN.CNP documented in this encounterKettering Health [facility]03-13-2025 History of Present illness Narrative* Jimbo Swanson APRN.CNS - 05/01/2024 4:08 PM EDT Noted, agree * Melissa Means RN - 05/01/2024 2:52 PM EDT patient had inr completed at [facility] patients inr is 1.1 (patients inr range [...] (05/20/24 - pt has appt w ith LABEL CUTTER also this day) for follow up INR. 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 Hurley ([facility]) Tricuspid regurgitation PAST SURGICAL HISTORY Procedure [...] SPINE FUSN,POST INTERBODY 2012 Dr. Armando at [facility]. Diskectomy and laminectomy PAST SURGICAL HISTORY [...] (FLONASE) 50 mcg/actuation nasal spray Use 1 Melbourne in each nostril once daily. vit A,C,N-Qeds-Wnepyl (OCUVITE PRESERVISION) 2,148 mcg-113 mg-45 mg-17.4mg tab [...] tablet daily. Medication Comments documented by Steven (Ceramic Design Engineer)Muna on 03/05/2018 at 0933. 03/05/18 The medications are managed by this patient by: PATIENT Muna Harris (Ceramic Design Engineer) [facility] for [facility] medications. ALLERGIES Allergen Reactions Penicillins Hives Objective [...] 03/21/24 11:36 AM Impression IMPRESSION: See result Inspector Precision: KRYSTAL Transcribe Date/Time: Mar 21 2024 12:02P Dictated by : JACKELINE SCHULER MD This examination was interpreted and the report reviewed and electronically signed by: JACKELINE SCHULER MD on Mar 21 2024 12:04PM EST ECG COMPLETE Collection Time: 03/21/24 11:27 AM Impression SINUS RHYTHM WITH PREMATURE ATRIAL COMPLEXES BORDERLINE ECG Confirmed by IRA MC, ELIE ([id number]) on 03/30/2024 12:00:41 AM CTA CHEST (GATED) W IVCON Collection Time: 03/21/24 10:57 AM Impression IMPRESSION: Aortic Annulus and valve anatomy as described above Normal thoracic and abdomiinal aorta.Atherosclerotic changes as in the body of the report.Minimum luminal diameter throughout: 7 mm Inspector Precision: [place] Transcribe Date/Time: Mar 21 2024 11:22A Dictated [...] and consent discussed: yes. Patient / Responsible Libertarian agrees to proceed: yes Patient / Surrogate [...] 5:59 PM Pager/Contact #: documented in this encounterKettering Health [facility]ble03-12-2025 Instructions* Patient Instructions* Monica Aguila APRN.SUSTAINABILITY CONSULTANT - 04/30/2024 1:32 PM EDT Destinee Castañeda are scheduled for TF-TAVR on 05/02/[address] Saeed Instructed to go to [facility] REGISTRATION TODAY, after all appointment to register for the procedure. ON THE PROCEDURE DAY 05/03/2024, Report to [employer] J1-2 at 8:30 . Instructions: The Evening [...] into surgery. - No make-up or nail costa rican. - No jewelry, including watches, wedding rings and any body jewelry. // Questions about preparing for your procedure? Call your doctors office: Dr. Orlin Meyer [phone] Dr. Gallito Cortez [phone] Dr. Jason Olea [phone] Dr. Juvencio Saeed [phone] Interventional Discharge Readiness Tool Your Anticipated Discharge Needs: If you are discharged the same day -You must have accommodations in [place] (if you live over 2 hours away) [...] your risk of future heart problems. For [facility] call [phone] to schedule after you are home from your procedure. If you do not receive your referral, please call your hay baler's office for the order. It was nice to see you again, I wish you the best. Kindly, Monica Aguila APRN.CNP documented in this encounterKettering Health [facility]03-12-2025 History of Present illness Narrative* Monica Aguila APRN.CNP - 04/30/2024 1:00 PM EDT Images from the original note were not included. [facility] Department of Cardiovascular Medicine SECTION OF INTERVENTIONAL CARDIOLOGY OUTPATIENT VISIT DATE April 30, 2024 OUTPATIENT VISIT TYPE ESTABLISHED FOLLOW UP Primary Exceptional Needs Teacher: Dr. Saeed Chief Complaint: Patient here for cardiac follow up evaluation History of Present Illness: Patient is a 78 year old female who presents for follow up visit today. Patient was here with a couple from her mormonism. She lives at home alone and is [...] no Dental clearance: Com[facility] PPM: No Anticoagulation: Coumadin- Last dose taken 04/27/2024 Contrast Allergy: no Surgeon Note 03/25/2024 KCCQ-12: 03/25/2024 15 Ft W: 03/25/2024 PLAN AND RECOMMENDATIONS: Haydee Bustamante is scheduled for TF-TAVR on 05/02/[address] Saeed Instructed to go to [facility] REGISTRATION TODAY, after all appointment to register for the procedure. ON THE PROCEDURE DAY 05/03/2024, Report to [facility] at 8:30. Instructions: The Evening Before Procedure. [...] into surgery. - No make-up or nail costa rican. - No jewelry, including watches, wedding rings and any body jewelry. // Questions about preparing for your procedure? Call your doctors office: Dr. Orlin Meyer [phone] Dr. Gallito Cortez [phone] Dr. Jason Olea [phone] Dr. Juvencio Saeed [phone] Interventional Discharge Readiness Tool Your Anticipated Discharge Needs: If you are discharged the same day -You must have accommodations in [place] (if you live over 2 hours away) [...] your risk of future heart problems. For [facility] call [phone] to schedule after you are home from your procedure. If you do not receive your referral, please call your hay baler's office for the order. I spent a total of 35 minutes on the date of the service which included preparing to see the patient, piiq-iw-mghi patient care, completing clinical documentation, obtaining and/or reviewing separately obtained history, performing a medically appropriate examination, counseling and educating the pat ient/family/caregiver, and communicating results to the patient/family/caregiver. Monica Aguila APRN.SANTY documented in this encounterKettering Health [facility]03-12-2025 History of Present illness Narrative* Ursula Rosario [...] PATIENT PRESENTS WITH AN IMPLANTABLE OR ATTACHED LINING STAMPER: No RADIOLOGY DEPARTMENT: General X-ray: Exam(s) Completed: Chest X-Ray PERIPHERAL IV DATA: Not applicable SIGNED BY: RT Leslie(R) April 30, 2024 11:27 AM documented in this encounterKettering Health [facility]ble03-03-2025 History of Present illness Narrative* Geno Hart MD - 04/21/2024 11:00 AM EST Patient presents with: Disseminated histoplasmosis : Recurrent due to immunosuppression HPI: 78-year-old woman with 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 She was treated with remdesivir and dexamethasone and then put back on itraconazole March 19 for her histoplasma recurrence. She had previous disseminated histoplasmosis [facility] Currently doing well with [...] be getting a TAVR next week at [facility] due to aortic valve problems. Her [...] vaccine, age 12+ yr, monovalent (PFIZER-BIONTECH - ARIAS TOP) 07/11/2021 COVID-19 original vaccine, age 12+ yr, monovalent (PFIZER-BIONTECH - PURPLE TOP) 04/22/2020 05/13/2020 11/09/2020 11/21/2020 [...] (FLONASE) 50 mcg/actuation nasal spray Use 1 Melbourne in each nostril once daily. 3 Each 3 vit A,C,X-Tvxx-Sggknp (OCUVITE PRESERVISION) 2,148 mcg-113 mg-45 mg-17.4mg tab [...] Aortic stenosis COPD (chronic obstructive pulmonary disease) ([facility]) Disseminated histoplasmosis Colitis, immunosuppression, 01/2018. Diverticulosis of colon (without mention of hemorrhage) Diverticulosis DVT, recurrent, lower extremity, acute ([facility]) 12/10/2014 GERD (gastroesophageal reflux disease) Hiatal hernia 02/25/2018 Hypertension Lung nodule Macular degeneration Mitral stenosis Rheumatoid arthritis involving multiple sites with positive rheumatoid factor (HCC) 03/07/2015 Dr. Hurley ([facility]) Tricuspid regurgitation PAST SURGICAL HISTORY Procedure [...] SPINE FUSN,POST INTERBODY 2011 Dr. Armando at [facility]. Diskectomy and laminectomy PAST SURGICAL HISTORY OF 03/07/1999 removal facial lesion PAST SURGICAL HISTORY OF 08/17/2014 excision soft tissue mass left index finger TONSILLECTOMY PRIMARY/SECONDARY <AGE 12 TRANSCATH RETRIEVAL,PERCUT 12/28/2006 ACTIVE PROBLEM LIST Esophageal Reflux Meralgia Paresthetica Other Voice and Resonance Disorders Arthropathy, Unspecified, Site Unspecified Elevated Liver Enzymes Skilled Nursing Current Use of Anticoagulant Therapy Hnp (Herniated [...] 6 months (around 10/22/2024). documented in this encounterKettering Health [facility]02-26-2025 History of Present illness Narrative* Leandra Venegas APRN.CNS - 04/16/2024 9:13 AM EST Images from the original note were not included. documented in this encounterKettering Health [facility]02-25-2025 History of Present illness Narrative* Leandra Venegas APRN.CNS - 04/15/2024 12:44 PM EST I spoke with Haydee Bustamante on the phone. Will proceed with the following: TAVR procedure: SundayMay 02 Pre-op testing: SundayApril 30 No fasting is needed on pre-op day. Contrast Allergy: no Stop taking anticoagulation: Warfarin- stop taking on Sunday04/28/2024. Krishnaswamy/Betsy/Christophe: Hold DOAC 24 hours prior to procedure. If GFR <30, hold DOAC 48 hoursprior to procedure Emmie: Hold DOAC the night before Beta-Pietro /Calcium channel Therapy to be stopped: (Dr. Olea only). GLP-1 agonist: no SGLT2 Inhibitors: no Dental clearance: she said this was completed. Can follow-up with her local dentist. Jasmyn Esposito [facility] [phone] Pacemaker evaluation: N/A Shante, Please schedule Haydee Bustamante [phone] for COMMERCIAL TF- TAVR ( CARLYN) Procedure on: Thursday May 02, 2024 Lab/CXR/EKG Appointment: SundayApril 30 Please schedule STRUCTURAL VALVE CLINIC Visit on: SundayApril 30 Date of J4-1 Anesthesia only: SundayApril [address] lab schedule on : Thursday May 02, 2024 at 8:30 AM CPT Code: 58790 Diagnosis Code: I35.0 SINGING TEACHER: Dr. Saeed Performing Physician: Dr. Saeed OR: 81 Surgeon: Dr. Francis Please schedule bed reservation for post procedure-(should be a TCI) EVAN schedule- intra/op Patient also needs INSURANCE PRECERTIFICATION ADL SCORE___6 SURVIVAL RATE GREATER THAN 1 YEAR____Y___(LOOKING FOR A YES) EF ___N__(GREATER THAN 50%) Thank you. Leandra Venegas APRN.CNS Request sent to scheduling. documented in this encounterKettering Health [facility]02-25-2025 Telephone encounter Note * Telephone Encounter - Leandra Venegas APRN.CNS - 04/15/2024 12:12 PM EST Tried to call patient to schedule TAVR procedure. Left message for her to call the office. Leandra Venegas APRN.CNS [facility]02-25-2025 Miscellaneous Notes* Telephone Encounter - Leandra Venegas APRN.CNS - 04/15/2024 12:12 PM EST Tried to call patient to schedule TAVR procedure. Left message for her to call the office. 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 [employer] and she has a goal to get [...] were you homeless or living in a group home (including now)?: No Transportation Needs In the [...] have money to get more.: Never true [employer] In the past 12 months has the electric, gas, oil, or water company threatened to [...] Contact Your Physician Team Disposition Based on compacting machine operator/tender, the following disposition is advised: No action needed Pili Benitez RN April 14, 2024 4:01 PM documented in this encounterKettering Health [facility]02-15-2025 History of Present illness Narrative* Juvencio Saeed MD - 04/05/2024 4:01 PM EST Interventional Cardiology Staff Note Dr. Saeed receives payments from several device companies for educational activities, advisory boardduties, consulting, and/or proctoring. The companies include: [employer], [employer], and [employer]. A product by [employer], [employer], [employer], or a competitor, may be used in this patient's care. Dr. Saeed does not receive any money for products he or any other [facility] physicians prescribe or use. Dr. Saeed's choice on which product used in this patient's case is or was not influenced by his relationship with any company. Dr. Saeed selected the product that in his hands is believed to be the best option for this patient's treatment. This was discussed with the patient. Juvencio Saeed MD, MSc documented in this encounterKettering Health [facility]02-14-2025 History of Present illness Narrative* Tracey Heller APRN.SANTY - 04/04/2024 6:21 AM EST Bay Heller APRN.SUSTAINABILITY CONSULTANT * Melissa Means RN - 04/03/2024 1:48 PM EST patient had inr completed at [facility] patients inr is 1.7 (patients inr range [...] for follow up INR. documented in this encounterK[facility]02-13-2025 Telephone encounter Note * Telephone Encounter - [...] a TAVR. Alisa Allen RN, BSN Nurse Soil Technician for Dr. Bartolome Francis [facility]02-13-2025 Miscellaneous Notes* Telephone Encounter - Alisa Allen [...] a TAVR. Alisa Allen RN, BSN Nurse Soil Technician for Dr. Bartolome Francis * Telephone Encounter - Karen Nunez - 04/02/2024 1:44 PM EST Images from the original note were not included. LOCAL PATIENT Received Zwolle Email from Dr. Christophe Rees Robby is being referred to Bartolome Francis M.D. by Juvencio Saeed [facility] [address] Patient diagnosis/Reason for consult: Aortic Valve Stenosis; Chronic Heart Failure Referral triage process explained: N/A Patient will receive a call from Cardiac NPM after triage review with surgeon to discuss any additional testing and/or consults that will be scheduled. Pt will then receive a call from our scheduling office for scheduling. Please call pt at [phone]. Patient Registration: Registration complete/updated: yes Insurance card(s) [facility] with in the past year: Yes: Date: 10/18/2023 Pt's [employer] is active. Ok to communicate to pt via [employer] Gr[employer] not asked Medical Records: Records in [facility] (internal CC records): Yes Imaging in [facility] (internal CC records): Yes Care Everywhere - queried yes, downloaded Yes Linked Outside Organizations (list): Additional providers added to Care Teams: Yes Additional Notes/Comments: Internal Referral Enct routed to: Yes, Cardiac NPM for triage Karen Nunez documented in this encounterKettering [facility]02-12-2025 Telephone encounter Note * Telephone Encounter - Karen Nunez - 04/02/2024 1:44 PM EST Images from the original note were not included. LOCAL PATIENT Received Zwolle Email from Dr. Christophe Bustamante is being referred to Bartolome Francis M.D. by Juvencio Corbin [facility] [id number] Patient diagnosis/Reason for consult: Aortic Valve Stenosis; Chronic Heart Failure Referral triage process explained: N/A Patient will receive a call from Cardiac NPM after triage review with surgeon to discuss any additional testing and/or consults that will be scheduled. Pt will then receive a call from our scheduling office for scheduling. Please call pt at [phone]. Patient Registration: Registration complete/updated: yes Insurance card(s) scanned [facility] with in the past year: Yes: Date: 10/18/2023 Pt's MyChart is active. Ok to communicate to pt via I-frontdesk not asked Medical Records: Records in [facility] (internal CC records): Yes Imaging in Epic (internal CC records): Yes Care Everywhere - queried yes, downloaded Yes Linked Outside Organizations (list): Additional providers added to Care Teams: Yes Additional Notes/Comments: Internal Referral Enct routed to: Yes, Cardiac NPM for triage Karen Nunez [facility]02-12-[facility]25 Telephone encounter Note* Telephone Encounter - David Hoffmann - 04/02/2024 9:16 AM EST IN [facility] Work Phone: [phone] Miscellaneous Notes* Telephone Encounter - David Hoffmann - 04/02/2024 9:16 AM EST IN * Telephone Encounter - Karen Nunez - 04/01/2024 4:53 PM EST Insurance Card(s) scanned into [employer] Please register/advise Thank You! documented in this encounterKettering Health [facility]02-11-2025 Telephone encounter Note * Telephone Encounter - Karen Nunez - 04/01/2024 4:53 PM EST Insurance Card(s) scanned into [employer] Please register/advise Thank You! [facility]02-10-2025 History of Present illness Narrative* Estefania Ervin APRN.SUSTAINABILITY CONSULTANT - 03/31/2024 12:02 PM EST [facility] Department of Cardiovascular Medicine SECTION OF INTERVENTIONAL CARDIOLOGY Date March 31, 2024 MULTI DISCIPLINARY TAVR TEAM MEETING Microsoft Teams Meeting Team members: Dr. Cortez, Dr. Meyer, Dr. Saeed, Dr. Olea, Dr. Macdonald, Dr. Francis, Dr. Alba,Dr. Dodge, Dr. Gomes, Dr. Foster, Dr. Ann, Dr. Masters, Mya Ervin CNP. Evan March CNP, Jessi Mejia CNP, Cabrera Han RN PATIENT [...] be handled by: CVM coordinator Estefania Ervin APRN.SUSTAINABILITY CONSULTANT documented in this encounterKettering Health [facility]02-10-2025 History of Present illness Narrative* Yu Torres MA - 03/31/2024 10:42 AM EST POPULATION HEALTH NAVIGATION OUTREACH Action/FYI [...] 31, 2024 10:42 AM documented in this encounterKettering Health [facility]02-05-2025 History of Present illness Narrative* Yu Torres [...] 26, 2024 9:38 AM documented in this encounterKettering Health [facility]02-04-2025 History of Present illness Narrative* Bartolome Francis MD - 03/25/2024 3:45 PM EST Images from the original note were not included. [facility] [place] DEPARTMENT OF CARDIAC SURGERY OUTPATIENT VISIT DATE March 25, 2024 OUTPATIENT VISIT SERVICE DATE: 03/25/2024 SERVICE TIME: 3:45 PM PCP: Claudine Durán [address] [place] [address] Referring Physician: Monica Aguila [facility] Trang Corbin [facility] [address] Patient Type: Consult Visit to determine Surgery: [...] the report.Minimum luminal diameter throughout: 7 mm Inspector Precision: [place] Transcribe Date/Time: Mar 21 2024 11:22A Dictated [...] record Bartolome Francis MD documented in this encounterKettering Health [facility]02-04-2025 Instructions* Patient Instructions* Monica Aguila APRN.SUSTAINABILITY CONSULTANT - 03/25/2024 11:06 AM EST Destinee I have spoken with you regarding the [...] your risk of future heart problems. For [facility] call [phone] to schedule after you are home from your procedure. If you do not receive your referral, please call your hay baler's office for the order. We also discussed [...] touch after the meeting. Kindly, Monica Aguila APRN.CNP documented in this encounterKettering Health [facility]ble02-04-2025 History of Present illness Narrative* Monica Aguila APRN.CNP - 03/25/2024 11:00 AM EST Images from the original note were not included. [facility] Department of Cardiovascular Medicine SECTION OF INTERVENTIONAL CARDIOLOGY OUTPATIENT VISIT DATE March 25, 2024 OUTPATIENT VISIT TYPE ESTABLISHED FOLLOW UP Primary Exceptional Needs Teacher: Dr. Saeed Chief Complaint: Patient here for [...] I have personally reviewed the above testing. [place] CARDIOMYOPATHY QUESTIONNAIRE (KCCQ-12) Activity: A. Showering/bathing: Extremely [...] for other reasons. 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 For [facility] call [phone] to schedule after you are home from your procedure. If you do not receive your referral, please call your hay baler's office for the order. We also discussed [...] which included preparing to see the patient, [id number] patient care, completing clinical documentation, obtaining and/or reviewing separately obtained history, counseling and educating the patient/family/caregiver, independently interpretin g results (not separately reported), and communicating results to the patient/family/caregiver. Monica Aguila APRN.CNP documented in this encounterKettering Health [facility]ble02-04-2025 History of Present illness Narrative* Chacho Anaya RRT - 03/25/2024 9:43 AM EST PULM FUNCTION: Provider: Monica Aguila APRN.CNP Spirometry: 1 DLCO: 1 J- LAB # 1 - PFT documented in this encounterKettering Health [facility]ble02-04-2025 History of Present illness Narrative* Ken Lovelace [...] PATIENT PRESENTS WITH AN IMPLANTABLE OR ATTACHED LINING STAMPER: No CREATININE: Creatinine Date Value Ref Range [...] DIAGNOSTIC CT PERFORMED: No IV SITE: Ambulatory: NM only - direct IV injection in the Left hand POST EXAM PIV STATUS: Not applicable PROCEDURE TYPE: NM INJECT: NM CARDIAC AMYLOID SPECT. 20.8 mCi Tc99m HDP. No other medications given.. ADMINISTRATION TIME: 8:34AM PATIENT DISCHARGED TO: Ambulatory patient, left [place] department area. Is this a therapy: No A Diagnostic radioactive procedure has taken place, with no further precautions necessary other than routine body substance precautions. More information regarding radiation safety can be found usingthis link: [email or web address] SIGNATURE: SABRINA Denise) PATIENT NAME: Haydee Bustamante DATE: March 25, 2024 TIME: 8:38 AM PAGER/CONTACT #: documented in this encounterKettering Health [facility]02-02-2025 Telephone encounter Note * Telephone Encounter - [...] Caitlin Servin RN. In Department of CARDIOLOGY. [facility]02-02-[facility]25 Miscellaneous Notes* Telephone Encounter - Caitlin Servin [...] In Department of CARDIOLOGY. documented in this encounterKettering Health [facility]ble01-31-2025 History of Present illness Narrative* Yu Torres [...] 21, 2024 2:37 PM documented in this encounterKettering Health [facility]ble01-31-2025 History of Present illness Narrative* Ursula Rosario [...] PATIENT PRESENTS WITH AN IMPLANTABLE OR ATTACHED LINING STAMPER: No RADIOLOGY DEPARTMENT: General X-ray: Exam(s) Completed: Chest X-Ray PERIPHERAL IV DATA: Not applicable SIGNED BY: SABRINA Nelson) March 21, 2024 11:38 AM documented in this encounterKettering Health [facility]ble01-31-2025 History of Present illness Narrative* Candace Sotomayor [...] PATIENT PRESENTS WITH AN IMPLANTABLE OR ATTACHED LINING STAMPER: No RADIOLOGY DEPARTMENT: CT; Exam(s) Completed: Cardiac PERIPHERAL IV DATA: Site assessment: Clean,Dry and Intact, Site disposition Discontinued SIGNED BY: RT Clark(R) March 21, 2024 10:53 AM documented in this encounterKettering Health [facility]ble01-31-2025 History of Present illness Narrative* Juvencio Saeed MD - 03/21/2024 9:30 AM EST [facility] Department of Cardiovascular Medicine SECTION OF INTERVENTIONAL CARDIOLOGY OUTPATIENT VISIT DATE March 21, 2024 OUTPATIENT VISIT TYPE NEW PRIMARY CARE PHYSICIAN: Claudine Durán [address] [place] [address] REFERRING PHYSICIAN: No referring provider defined for [...] d/t histoplasmosis) COPD HTN She saw Dr. Roche in December and has been referred for [...] neighbors and friends - very active in mormonism community. She denies chest pain, shortness of [...] Diverticulosis DVT, recurrent, lower extremity, acute ([facility]) 12/10/2014 GERD (gastroesophageal reflux disease) Hiatal hernia 02/25/2018 Hypertension Lung nodule Macular degeneration Mitral stenosis Rheumatoid arthritis involving multiple sites with positive rheumatoid factor ([facility]) 03/07/2015 Dr. Hurley ([facility]) Tricuspid regurgitation PAST SURGICAL HISTORY Procedure [...] SPINE FUSN,POST INTERBODY 2012 Dr. Armando at [facility]. Diskectomy and laminectomy PAST SURGICAL HISTORY [...] fluticasone (FLONASE) 50 mcg/actuation nasal spray^Use 1 [place] in each nostril once daily.^Disp: 3 Each^Rfl: 3 vit A,C,G-Houf-Gtfyet (OCUVITE PRESERVISION) 2,148 mcg-113 mg-45 mg-17.4mg tab^Take [...] CTS assessment. Following[facility] I personally interviewed, confirmed and edited the above information as obtained by others. Juvencio Saeed M.D., M.Sc., F.A.C.C., F.S.C.A.I. Staff, Interventional Cardiology [facility] Desk [facility], [address] [place] [address] Office , toll-free [phone], [phone] Office Appointments: [phone], toll-free [phone], [phone] documented in this encounterKettering Health [facility]ble01-10-2025 Instructions* Patient Instructions* Claudine Durán MD - 02/29/2024 5:43 PM EST .aisavs documented in this encounterKettering Health [facility]ble01-10-2025 History of Present illness Narrative* Claudine Durán MD - 02/29/2024 5:23 PM EST This note was created using [employer]. Subjective Haydee Bustamante is a 78 year [...] on the of next month at the main campus. She also has mitral valve issues, noting [...] and was restarted on methotrexate by her food and beverage server, Dr. Jane Montoya. She was also prescribed [...] flu vaccines on the same day at [facility]. She reports some anxiety related to her upcoming surgery and recent life events, including a changein her email and bank account. She has a support system in place, including a friend who will accompany her to appointments and a medical power of tax attorney. She has advanced directives on file. She denies severe depression but reports being in a bad mood recently due to stress from her responsibilities with the [employer]. PAST MEDICAL HISTORY Diagnosis Date Anemia Bone marrow involvement with histoplasmosis Bronchiectasis (HCC) COPD (chronic obstructive pulmonary disease) ([facility]) Disseminated histoplasmosis Colitis, immunosuppression, 01/2018. Diverticulosis of colon (without mention of hemorrhage) Diverticulosis DVT, recurrent, lower extremity, acute ([facility]) 12/10/2014 Esophageal reflux Hiatal hernia 02/25/2018 Hypertension Lung nodule Personal history of unspecified urinary disorder Rheumatoid arthritis involving multiple sites with positive rheumatoid factor ([facility]) 03/07/2015 Dr. Hurley ([facility]) Unspecified hemorrhoids without mention of complication [...] (FLONASE) 50 mcg/actuation nasal spray Use 1 [place] in each nostril once daily. vit A,C,O-Yfaq-Twephl (OCUVITE PRESERVISION) 2,148 mcg-113 mg-45 mg-17.4mg tab [...] heart failure with preserved ejection fraction (HFpEF) ([facility]) (I50.32) # Nonrheumatic aortic valve stenosis (I35.0) - Scheduled for TAVR on the of next month at the [facility]. - Reports significant heart murmur audible during auscultation. - No current edema noted; Lasix on hold. - Spironolactone therapy discontinued. - Follow-up with cardiology on the of this month. # Rheumatoid arthritis with positive rheumatoid factor, involving unspecified site ([facility]) (M05.9) - Under management by Dr. Jane Montoya at [facility]. - Resumed methotrexate and initiated sulfasalazine 2 tablets twice daily; significant improvement in pain and stiffness reported. - Recent corticosteroid injection provided additional relief. - Humira therapy currently discontinued. # COPD without exacerbation ([facility]) (J44.9) # Bronchiectasis without complication ([facility]) (J47.9) - Conditions are stable; no exacerbations reported. - Cleared for upcoming TAVR procedure. # Screening for depression (Z13.31) # Encounter for screening examination for other mental health and behavioral disorders (Z13.39) - Depression screening completed; no severe depression noted. - Mild anxiety related to upcoming surgery; no pharmacological or counseling interventions requiredat this time. Claudine Durán MD documented in this encounterKettering Health [facility]01-10-2025 History of Present illness Narrative* Melissa Means RN - 02/29/2024 3:45 PM EST patient had inr completed at [facility] patients inr is 2.0 (patients inr range [...] for follow up INR. documented in this encounterKettering Health [facility]01-02-2025 Telephone encounter Note * Telephone Encounter - [...] Please review and advise. Jannet Aldana RN [facility] Work Phone: 1(267) 807-802101-02-2025 Miscellaneous Notes* Telephone Encounter - Jannet Aldana [...] Please review and advise. Jannet Aldana RN documented in this encounterKettering Health [facility]ble12-12-2024 History of Present illness Narrative* Jimbo SwansonANNY - 01/31/2024 4:15 PM EST Continue with Coumadin dose unchanged and check INR in 4 weeks * Melissa Means RN - 01/31/2024 2:06 PM EST patient had inr completed at [facility] patients inr is 1.9 (patients inr rnage [...] for follow up INR. documented in this encounterKettering Health [facility]ble12-10-2024 History of Present illness Narrative* Ilda Miller RN - 01/29/2024 2:57 PM EST [facility] Telephonic Outreach Provider Action/FYI N/A 2nd attempt Contacted for: Routine Telephonic [...] more often than normal? No Based on compacting machine operator/tender, the following disposition is advised: No symptoms or symptoms present, not severe. Routed to: No Action Needed PAN Education Provided this Outreach: No Appointments for Next 60 Days Date Time Provider Location Dept Phone 01/31/2024 10:30 AM [facility] [place] [phone] 02/29/2024 3:40 PM CLAUDINE DURÁN [facility] [phone] Ilda Miller RN January 29, 2024 3:01 [...] goal align with programs offered at the [facility]? No Patient accepts telephonic outreach. PAN Education [...] stressful. Can we connect you with a [facility] Health Assembler Installer General to find a program that could help you meet your goals? No Falls completed:Yes ADL's updated: Yes Ilda Miller RN January 29, 2024 3:32 PM documented in this encounterKettering Health [facility]12-02-2024 History of Present illness Narrative* Ilda Miller RN - 01/21/2024 1:25 PM EST [facility] Telephonic Outreach Provider Action/FYI N/A Contacted for: Routine Telephonic Outreach Contact made with patient: No, left message. Ilda Miller RN January 21, 2024 1:28 PM Goals/Falls/ADL Update Contact made with patient: No, left message. Ilda Miller RN January 21, 2024 1:28 PM documented in this encounterKettering Health [facility]11-21-2024 History of Present illness Narrative* Jimbo Swanson APRN.CNS - 01/10/2024 12:45 PM EST Coumadin 6mg and Sunday and 5mg all other days and recheck in 3 weeks due to the cc is closed at the 2 week jasmyn * Melissa Means RN - 01/10/2024 12:39 PM EST patient had inr completed at [facility] CC patients inr is 1.5 [...] diet recommend: patient change coumadin to 6mg Thurs,Sat and 5mg all other days and recheck in 3 weeks due to the cc is closed at the 2 week jasmyn patient has been scheduled for a 3 week follow up inr on 01/31/24 please review and advise on recommendation patient only needs called if provider does not agree with recommendation documented in this encounterKettering Health [facility]11-19-2024 Note* Addendum Note - Monica Aguila APRN.CNP - 01/08/2024 4:18 PM ESTAddended by: MONICA AGUILA on: 01/08/2024 04:18 PM Modules accepted: Orders [facility]11-19-2024 Miscellaneous Notes* Addendum Note - Monica Mccormick APRN.CNP - 01/08/2024 4:18 PM ESTAddended by: MONICA MCCORMICK on: 01/08/2024 04:18 PM Modules accepted: Orders documented in this encounterKettering Health [facility]11-19-2024 History of Present illness Narrative* Monica Aguila APRN.CNP - 01/08/2024 9:30 AM EST TAVR STRUCTURAL REVIEW FORM Orders placed by: Dr. Roche on 01/02/2024 Records Reviewed: 01/08/2024 Appt request sent: 01/08/2024 Records in [facility] have been reviewed. Severe . Request has been sent to the recruiting scheduler who will arrange an appointment schedule. [...] DX: aortic valve disorder Referring physician: Dr. Roche DAY ONE: Dr. Meyer/ Dr. Cortez/ Dr. Saeed/Dr. Olea The following testing on same day as appointment with physician: EKG/CXR/Labs (CMP; CBC with diff, PT/INR, Pro-BNP, High Sensitivity Troponin, Lipoprotein(a)-LPA) Echocardiogram CTA aorta DAY TWO: Left Heart catheterization: any diagnostic physician. IF CREAT is 2.0 or greater, then it should be by an Crusher Foreman ONLY (Dr. Cota, , Dr. Olea, Dr. Cortez, Dr. Meyer, Dr. Beavers, Dr. Jackson,Dr. Gillespie, Dr. Rosa, Dr. Dunn, Dr. Painter and Dr. West) DAY THREE: Nuclear Medicine- Amyloid SPECT Structural Valve Clinic appointment PFT s (spirometry, diffusing capacity) Patient is also to be seen by Dr. Francis/Dr. Macdonald/Dr. Costa/Dr. Silverio/ Dr. Delgado/Dr. Gonzalez/Dr. Arreaga/Dr. Luu/ Dr. Manzanares/ Dr. Gan/Dr. Anjali Aguila APRN.SUSTAINABILITY CONSULTANT documented in this encounterKettering Health [facility]11-15-2024 Telephone encounter Note * Telephone Encounter - [...] Hart MD 01/04/2024 2:33 PM pgr [id number] [facility]11-15-2024 Miscellaneous Notes* Telephone Encounter - Geno Hart [...] 2:33 PM pgr [id number] documented in this encounterKettering Health [facility]ble11-13-2024 History of Present illness Narrative* Lili Roche MD - 01/02/2024 9:45 AM EST Images from the original note were not included. [facility] Department of Cardiovascular Medicine SECTION [...] Bicuspid AV presents for evaluation of . 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 -Known since 2019 with steadily rising gradients referred to [facility] for intervention -Followed by Dr. Hart from [place] for histoplasmosis, recent labs 12/19 show histo antigen negative -Followed by Dr. Messina from [facility]ology for and pericardial effusion last seen 08/27/23, then by Raji ROSALES 10/18/23 - awaiting evaluation for aortic valve intervention. Referred to [facility] for further management. Patient reports at baseline she is very limited due to joint pain in hands, wrists "everywhere" since being off RA treatment for histo. She uses cane in clinic today - seen in wheelchair. Reports at baseline lives at home alone with help from neighbors and friends - very active in mormonism community.No family close by. No reported cardiac [...] (HCC) COPD (chronic obstructive pulmonary disease) ([facility]) Disseminated histoplasmosis Colitis, immunosuppression, 01/2018. Diverticulosis of colon (without mention of hemorrhage) Diverticulosis DVT, recurrent, lower extremity, acute ([facility]) 12/10/2014 Esophageal reflux Hiatal hernia 02/25/2018 Hypertension Lung nodule Personal history of unspecified urinary disorder Rheumatoid arthritis involving multiple sites with positive rheumatoid factor (HCC) 03/07/2015 Dr. Hurley ([facility]) Unspecified hemorrhoids without mention of complication [...] SPINE FUSN,POST INTERBODY 2012 Dr. Armando at [facility]. Diskectomy and laminectomy PAST SURGICAL HISTORY [...] up to 7 days. Mucus Clearing Device (redealize VIBRATORY PEP) renetta Provide 1 device FOLIC ACID ORAL Take by mouth. fluticasone (FLONASE) 50 mcg/actuation nasal spray Use 1 [place] in each nostril once daily. pantoprazole DR (PROTONIX) 40 mg tablet Take 1 tablet by mouth once daily. vit A,C,O-Fikw-Gfemnc (OCUVITE PRESERVISION) 2,148 mcg-113 mg-45 mg-17.4mg tab [...] We recommend a follow-up with TAVR clinic. [facility] STAFF PHYSICIAN NOTE OF PERSONAL INVOLVEMENT [...] management of the patient's care. STAFF PHYSICIAN: Lili Roche MD CONTACT INFORMATION: Lili Roche M.D., F.A.C.CRc [facility] Department of Cardiovascular Medicine [facility] [facility] Desk [address] [place] [address] Office - [phone] extension [phone] Office E-mail: [email or web address] Appointments: [phone] extension [phone] documented in this encounterKettering Health [facility]11-07-2024 History of Present illness Narrative* Jimbo Swanson APRN.CNS - 12/27/2023 2:01 PM EST Coumadin 6mg Thurs and 5mg all other days and recheck in 2 weeks * Melissa Means RN - 12/27/2023 12:19 PM EST patient had inr completed at [facility] patients inr is 1.5 (patients inr range [...] not agree with recommendation documented in this encounterKettering Health [facility]10-31-20[facility] History of Present illness Narrative* Rosa Wallace RN - 12/20/2023 11:22 AM EDT CDM Telephonic Outreach Provider Action/FYI Contacted for: Engagement Contact made with patient: Yes Patient identified by name and date of . Discussed care with patient Outcomes: Patient switched from [facility] to telephone outreach Are you experiencing any new or worsening symptoms you need to talk about today? No Based on compacting machine operator/tender, the following disposition is advised: No symptoms or symptoms present, not severe. Routed to: No Action Needed PAN Education Provided this Outreach: No Rosa Wallace RN December 20, 2023 11:29 AM documented in this encounterK[facility]-31-[facility]24 Telephone encounter Note * Telephone Encounter - Jimbo Swanson APRN.CNS - 12/20/2023 7:12 AM EDT ok [facility]-31-2024 Miscellaneous Notes* Telephone Encounter - Jimbo Swanson [...] and send to pharmacy. documented in this encounterKettering Health [facility]10-30-2024 History of Present illness Narrative* Rosa Wallace RN - 12/19/2023 3:54 PM EDT [facility] Telephonic Outreach Provider Candelaria/SHAYNE Contacted for: Engagement Contact made with patient: No, left message. Rosa Wallace RN December 19, 2023 3:57 PM documented in this encounterKettering [facility]10-30-2024 Telephone encounter Note * Telephone Encounter - [...] Please update prescription and send to pharmacy. [facility]10-29-2024 History of Present illness Narrative* Geno Hart MD - 12/18/2023 11:00 AM EDT Patient presents with: Disseminated histoplasmosis : Follow-up on itraconazole HPI: 78-year-old woman immunosuppressed due to rheumatoid arthritis on Biologics, COPD with bronchiectasis, previously treated by [facility] for disseminated histoplasmosis and did well. In February 2023 was transferred here from [facility] with massive hemoptysis found out to be [...] relatively normal. She still active with her mormonism and at meetings and professional organizations and [...] (FLONASE) 50 mcg/actuation nasal spray Use 1 [place] in each nostril once daily. [address] (PROTONIX) 40 mg tablet Take 1 tablet by mouth once daily. 90 tablet 3 vit A,C,X-Pobj-Jxluhx (OCUVITE PRESERVISION) 2,148 mcg-113 mg-45 mg-17.4mg tab [...] rheumatoid factor (HCC) 03/07/2015 Dr. Hurley ([facility]) Unspecified hemorrhoids without mention of complication [...] SPINE FUSN,POST INTERBODY 2012 Dr. Armando at [facility]. Diskectomy and laminectomy PAST SURGICAL HISTORY OF 03/07/1999 removal facial lesion PAST SURGICAL HISTORY OF 08/17/2014 excision soft tissue mass left index finger TONSILLECTOMY PRIMARY/SECONDARY <AGE 12 TRANSCATH RETRIEVAL,PERCUT 12/28/2006 ACTIVE PROBLEM LIST Esophageal Reflux Meralgia Paresthetica Other Voice and Resonance Disorders Arthropathy, Unspecified, Site Unspecified Elevated Liver Enzymes Skilled Nursing Current Use of Anticoagulant Therapy Hnp (Herniated [...] reports reviewed. Great deal of time spent [id number]-[id number] with the patient mostly in discussion Return in about 4 months (around 04/18/2024). documented in this encounterKettering [facility]10-24-2024 History of Present illness Narrative* Jimbo Swanson APRN.CNS - 12/13/2023 4:22 PM EDT Coumadin 6 mg and 5 mg all other days and check INR in 2 weeks. * Melissa Means RN - 12/13/2023 1:17 PM EDT patient had inr completed at [facility] patients inr is 1.4 (patients inr range [...] an rx for 1mg coumadin sent to [facility] (rx has been pended for approval) please review and advise on recommendation patient only needs called if provider does not agree with recommendation documented in this encounterKettering [facility]10-22-2024 Telephone encounter Note * Telephone Encounter - [...] Mann LPN December 11, 2023 3:42 PM [facility]-22-2024 Miscellaneous Notes* Telephone Encounter - Lynne Mann [...] 11, 2023 3:42 PM documented in this encounterKettering Health [facility]10-10-2024 History of Present illness Narrative* Jimbo Swanson APRN.CNS - 11/29/2023 3:00 PM EDT Coumadin 5 mg daily and check INR in 2 weeks * Melissa Means RN - 11/29/2023 12:35 PM EDT patient had inr completed at [facility] patients inr is 2.3 (patients inr range [...] not agree with recommendation documented in this encounterKettering [facility]10-07-2024 Telephone encounter Note * Telephone Encounter - Jannet Aldana RN - 11/26/2023 2:38 PM EDT Patient cannot come in this week, she has been rescheduled to 12-17. Jannet Aldana RN [facility] Work Phone: 1(930) 221-268510-07-2024 Miscellaneous Notes* Telephone Encounter - Jannet Aldana [...] 11/26/2023 10:38 AM EDT Labs received from [facility] that will be scanned. They recommended a follow up with ID due toCRP 7.8 mg/dL and ESR 93 mm/hr. Patient is scheduled on 01-08-24. Should her appointment be scheduled sooner? Thank you, Jannet Aldana RN documented in this encounterKettering Health [facility]10-07-2024 Telephone encounter Note * Telephone Encounter - Jannet Aldana RN - 11/26/2023 1:07 PM EDT Voicemail left for patient to return call. Jannet Aldana RN [facility]10-07-2024 Telephone encounter Note* Telephone Encounter - Geno [...] week around December 16 through December 20. [facility] Work Phone: [phone] Telephone encounter Note* Telephone Encounter - Jannet Aldana RN - 11/26/2023 10:38 AM EDT Labs received from [facility] that will be scanned. They recommended a follow up with ID due toCRP 7.8 mg/dL and ESR 93 mm/hr. Patient is scheduled on 01-08-24. Should her appointment be scheduled sooner? Thank you, Jannet Aldana RN [facility]09-26-2024 Telephone encounter Note* Telephone Encounter - Jimbo Swanson APRN.CNS - 11/15/2023 4:53 PM EDT ok [facility]-26-2024 Miscellaneous Notes* Telephone Encounter - Jimbo Swanson [...] can not be approved. documented in this encounterKettering Health [facility]09-26-2024 Telephone encounter Note * Telephone Encounter - Melissa Means RN - 11/15/2023 12:26 PM EDT patients orders for coumadin clinic inr's has at this time. new order has been pended for approval if possible so that patient can continue to get inr's completed thru the coumadin clinic. coumadin clinic nurse only needs called if order can not be approved. [facility]-26-[facility] History of Present illness Narrative* Melissa Means RN - 11/15/2023 12:24 PM EDT patient had inr completed at [facility] patients inr is 2.1 (patients inr [...] reading since dose change documented in this encounterKettering Health [facility]09-19-2024 History of Present illness Narrative* Melissa Means RN - 11/08/2023 4:20 PM EDT pcp agrees with information * Melissa Means RN - 11/08/2023 2:00 PM EDT patient had inr completed at [facility] patients inr is 2.8 (patients inr range is 1.7-2.2) patient is currently taking 7.5mg Tues,Thurs and 5mg all other days per LABEL CUTTER Jv patients last dose change was on 10/25/23 [...] not agree with recommendation documented in this encounterKettering Health [facility]09-16-2024 Telephone encounter Note * Telephone Encounter - Claudine Durán MD - 11/05/2023 4:53 PM EDT The following approved medication requests have been transmitted electronically. Requested Prescriptions Pending Prescriptions Disp Refills itraconazole (SPORANOX) 10 mg/mL solution 1200 mL 0 Sig: Take 20 mL by mouth two times a day. Claudine Durán MD [facility]-16-2024 Miscellaneous Notes* Telephone Encounter - Claudine Durán [...] day. ALLERGIES Allergen Reactions Penicillins Hives (home) [phone] (cell) Last Office Visit Date: 10/11/2023 Last [facility] Visit: Visit date not found Future Appointment: 02/29/2024 The patients preferred pharmacy has been captured for this encounter? yes Request is for script(s) to be escript to pharmacy. Yessica Pelayo LPN documented in this encounterKettering Health [facility]09-16-2024 Telephone encounter Note * Telephone Encounter - Yessica Pelayo LPN - 11/05/2023 11:28 AM EDT Patient MyChart message requesting the following refill Refill(s) Requested: Requested Prescriptions Pending Prescriptions Disp Refills itraconazole (SPORANOX) 10 mg/mL solution 1200 mL 0 Sig: Take 20 mL by mouth two times a day. ALLERGIES Allergen Reactions Penicillins Hives (home) [phone] (cell) Last Office Visit Date: 10/11/2023 Last [facility] Visit: Visit date not found Future Appointment: 02/29/2024 The patients preferred pharmacy has been captured for this encounter? yes Request is for script(s) to be escript to pharmacy. Yessica Pelayo LPN [facility]09-10-2024 Telephone encounter Note* Telephone Encounter - Ashley Rahman MA - 10/30/2023 2:51 PM EDT Forms were successfully faxed to [phone] to [facility]. Form placed in PSS basket for scanning. [facility]-10-2024 Miscellaneous Notes* Telephone Encounter - Ashley Rahman MA - 10/30/2023 2:51 PM EDT Forms were successfully faxed to [phone] to [facility]. Form placed in PSS basket for scanning. documented in this encounterKettering Health [facility]09-06-2024 History of Present illness Narrative* Yesenia Weinstein LPN - 10/26/2023 3:59 PM EDT Patient was given coumadin instructions and verbalized understanding. * Jimbo Swanson APRN.CNS - 10/25/2023 3:30 PM EDT Recommend Coumadin 7.5 Maddie and and 5 mg all other days. Check INR in 2 weeks * Melissa Means RN - 10/25/2023 12:34 PM EDT patient had inr completed at [facility] patients inr is 1.3 (patients inr range [...] not agree with recommendation documented in this encounterKettering Health [facility]09-04-2024 Telephone encounter Note * Telephone Encounter - Claudine Durán MD - 10/24/2023 5:14 PM EDT The following approved medication requests have been transmitted electronically. Requested Prescriptions Signed Prescriptions Disp Refills warfarin (COUMADIN) 5 mg tablet 90 tablet 3 Sig: Take 1 tablet by mouth once daily. or as directed Authorizing Provider: CLAUDINE DURÁN MD [facility]09-04-2024 Miscellaneous Notes* Telephone Encounter - Claudine Durán [...] you. Maritza Preston LPN. documented in this encounterKettering Health [facility]09-03-2024 Telephone encounter Note * Telephone Encounter - [...] Please advise. Thank you. Maritza Preston LPN. [facility]08-30-2024 History of Present illness Narrative* Melissa Means, RN - 10/19/2023 3:22 PM EDT pcp agrees with information * Melissa Means RN - 10/19/2023 11:54 AM EDT patient had inr completed at [facility] patients inr is 1.1 (patients inr range [...] not agree with recommendation documented in this encounterKettering Health [facility]08-29-2024 Instructions* Patient Instructions* Bibi Alegria APRN.CNP - [...] your appointment with the valve team at [facility]. 5. Follow up with Dr. Messina in 3-4 months with echo prior documented in this encounterKettering Health [facility]08-29-2024 History of Present illness Narrative* Bibi Alegria APRN.CNP - 10/18/2023 10:00 AM EDT Images from the original note were not included. [facility] Department of Cardiovascular Medicine SECTION OF CLINICAL CARDIOLOGY OUTPATIENT VISIT DATE October 18, 2023 OUTPATIENT VISIT TYPE ESTABLISHED PRIMARY CARE PHYSICIAN: Claudine Durán [address] [place] [address] CHIEF COMPLAINT: 1 month follow up HISTORY [...] who referred her to valve clinic at [facility]. She denies any chest pain, palpitations, sh ortness of breath, lightheadedness, dizziness, presyncope, syncope, orthopnea, or PND. Subjective PAST MEDICAL HISTORY No date: Anemia Comment: Bone marrow involvement with histoplasmosis No date: Bronchiectasis (HCC) No date: COPD (chronic obstructive pulmonary disease) ([facility]) No date: Disseminated histoplasmosis Comment: Colitis, immunosuppression, 01/2018. No date: Diverticulosis of colon (without mention of hemorrhage) Comment: Diverticulosis 12/10/2014: DVT, recurrent, lower extremity, acute (HCC) No date: Esophageal reflux 02/25/2018: Hiatal hernia No date: Hypertension No date: Lung nodule No date: Personal history of unspecified urinary disorder 03/07/2015: Rheumatoid arthritis involving multiple sites with positive rheumatoid factor (HCC) Comment: Dr. Hulrey ([facility]) No date: Unspecified hemorrhoids without mention [...] SPINE FUSN,POST INTERBODY Comment: Dr. Armando at [facility]. Diskectomy and laminectomy 03/07/1999: PAST SURGICAL [...] fluticasone (FLONASE) 50 mcg/actuation nasal spray^Use 1 [place] in each nostril once daily.^Disp: 3 Each^Rfl: 3 vit A,C,Z-Vbre-Mowmua (OCUVITE PRESERVISION) 2,148 mcg-113 mg-45 mg-17.4mg tab^Take [...] ECGS AVAILABLE Confirmed by MD KEESHA, MIRIAN ([id number]) on 03/29/2023 8:55:[address] Result [...] calcified granuloma middle mediastinum. Small hiatal hernia Inspector Prec[facility] Transcribe Date/Time: Sep 05 2023 12:56P Dictated [...] avoid significant preload depletion - Referred to [facility] for valve intervention by PCP - [...] has been referred for valve intervention at [facility] by her PCP and is scheduled [...] or sooner should need arise. CONTACT INFORMATION: Bbii Alegria APRN.CNP Cardiology Nurse Practitioner Section of Regional Cardiology [facility] Dept of Cardiovascular Medicine [facility] [place] [address] [place] [address] Office Office This note was partially generated using [employer] voice recognition system and may contain errors related to that system including grammar, punctuation, spelling, and words that may be inappropriate documented in this encounterKettering Health [facility]08-28-2024 History of Present illness Narrative* Ilda Miller RN - 10/17/2023 3:43 PM EDT [facility] Telephonic Outreach Provider Action/SHAYNE N/A Contacted for: Engagement Last questionnaire completed: 08/31/23 My Chart reminder letter sent 10/02/23 No response to date to My Chart questionnaire. Contact made with patient: No, left message. Ilda Miller RN October 17, 2023 3:48 PM documented in this encounterKettering Health [facility]08-22-2024 Instructions* Patient Instructions* Jimbo Swanson APRN.CNS - 10/11/2023 1:48 PM EDT Let us know right away if having any chest pain or feeling dizzy or like you could pass out or if you do pass out. Okay to use diclofenac gel on your knees. Try using acetaminophen hydrocodone as needed for pain of your knees. documented in this encounterKettering Health [facility]08-22-2024 History of Present illness Narrative* Jimbo Swanson APRN.CNS - 10/11/2023 1:03 PM EDT SUBJECTIVE: Depression Screening Never done Anxiety Screening Never done Advance Directive Discussion due on 02/19/2023 Covid-19 Vaccine( season) due on 03/01/2023 HPI Haydee Bustamante is a 78 year [...] bicuspid valve, lung nodule bronchiectasis and COPD. P D Driver: Florence Collins MD, for follow-up of lung nodules bronchiectasis. Advertising Copywriter: Jane Montoya MD [facility]. Not taking Humira or methotrexate due to histoplasmosis, expects treatment to be completed in December. She notes significant knee pain. Has been using rhig-lvo-vcteuwh topical diclofenac. She was seen by Claudine Durán MD in May 2023 for follow-up appointment after discharge from [facility] after being in TCU after hospitalization. She [...] was referred for to orthopedic physician versus food and beverage server for this at her earliest convenience. She was then seen by Twyla Cuevas 08/08/2023 for follow-up regarding flareup of rheumatoid arthritisand swelling of her lower legs. She was treated with prednisone tapering dose furosemide 20 mg daily x 5 days, then as needed. She was then admitted to [facility] for GI bleed July 2023. She underwent [...] fluticasone (FLONASE) 50 mcg/actuation nasal spray^Use 1 [place] in each nostril once daily.^Disp: 3 Each^Rfl: [address] (PROTONIX) 40 mg tablet^Take 1 tablet by mouth once daily.^Disp: 90 tablet^Rfl: 3 vit A,C,V-Xiup-Gaqhgw (OCUVITE PRESERVISION) 2,148 mcg-113 mg-45 mg-17.4mg tab^Take [...] No date: COPD (chronic obstructive pulmonary disease) ([facility]) No date: Disseminated histoplasmosis Comment: Colitis, immunosuppression, 01/2018. No date: Diverticulosis of colon (without mention of hemorrhage) Comment: Diverticulosis 12/10/2014: DVT, recurrent, lower extremity, acute (HCC) No date: Esophageal reflux 02/25/2018: Hiatal hernia No date: Hypertension No date: Lung nodule No date: Personal history of unspecified urinary disorder 03/07/2015: Rheumatoid arthritis involving multiple sites with positive rheumatoid factor (HCC) Comment: Dr. Hurley ([facility]) No date: Unspecified hemorrhoids without mention [...] the prior CC echocardiographic exam performed on 09/22/2022([facility]). The mitral and aortic valve [...] now. - CONSULT TO CARDIOLOGY - Dr Roche [facility] 4. Gastrointestinal hemorrhage, unspecified gastrointestinal hemorrhage [...] Level: 4 - Moderate documented in this encounterKettering Health [facility]08-09-2024 Telephone encounter Note * Telephone Encounter - [...] Weinstein LPN September 28, 2023 10:21 AM [facility]08-09-2024 Miscellaneous Notes* Telephone Encounter - Yesenia Weinstein [...] 28, 2023 10:21 AM documented in this encounterKettering Health [facility]08-08-2024 History of Present illness Narrative* Melissa Means RN - 09/27/2023 3:36 PM EDT pcp agrees with information * Melissa Means RN - 09/27/2023 12:06 PM EDT patient had inr completed at [facility] patients inr is 1.3 (patients inr range [...] recheck after restarting it documented in this encounterKettering Health [facility]08-05-2024 History of Present illness Narrative* Claudine Durán MD - 09/24/2023 8:11 AM EDT This note was created using [employer]. Subjective Haydee Bustamante is a 78 year old female. Patient presents with: Hospital F/U: [facility] ED/Hospital discharge 08/18/23 SUBJECTIVE: Haydee Bustamante [...] No date: COPD (chronic obstructive pulmonary disease) ([facility]) No date: Disseminated histoplasmosis Comment: Colitis, immunosuppression, 01/2018. No date: Diverticulosis of colon (without mention of hemorrhage) Comment: Diverticulosis 12/10/2014: DVT, recurrent, lower extremity, acute ([facility]) No date: Esophageal reflux 02/25/2018: Hiatal hernia No date: Hypertension No date: Lung nodule No date: Personal history of unspecified urinary disorder 03/07/2015: Rheumatoid arthritis involving multiple sites with positive rheumatoid factor ([facility]) Comment: Dr. Hurley ([facility]) No date: Unspecified hemorrhoids without mention [...] (FLONASE) 50 mcg/actuation nasal spray Use 1 [place] in each nostril once daily. pantoprazole DR (PROTONIX) 40 mg tablet Take 1 tablet by mouth once daily. vit A,C,A-Wijk-Rnqoeh (OCUVITE PRESERVISION) 2,148 mcg-113 mg-45 mg-17.4mg tab [...] AM EDT This note was created using [employer]. Subjective Haydee Bustamante is a 78 year old female. Patient presents with: Hospital F/U: [facility] ED/Hospital discharge 08/18/23 SUBJECTIVE: Haydee Bustamante [...] Diverticulosis DVT, recurrent, lower extremity, acute ([facility]) 12/10/2014 Esophageal reflux Hiatal hernia 02/25/2018 Hypertension Lung nodule Personal history of unspecified urinary disorder Rheumatoid arthritis involving multiple sites with positive rheumatoid factor ([facility]) 03/07/2015 Dr. Hurley ([facility]) Unspecified hemorrhoids without mention of complication [...] (FLONASE) 50 mcg/actuation nasal spray Use 1 [place] in each nostril once daily. pantoprazole DR (PROTONIX) 40 mg tablet Take 1 tablet by mouth once daily. vit A,C,O-Utis-Gphdcp (OCUVITE PRESERVISION) 2,148 mcg-113 mg-45 mg-17.4mg tab [...] sleep. Claudine Durán MD documented in this encounterKettering Health [facility]08-02-2024 History of Present illness Narrative* Twyla Cuevas APRN.CNP - 09/21/2023 2:36 PM EDT Noted and agree, thank you! * Melissa Means RN - 09/21/2023 2:33 PM EDT patient had inr completed at [facility] patients inr is 2.4 (patients inr range [...] not agree with recommendation documented in this encounterKettering [facility]07-17-2024 Telephone encounter Note * Telephone Encounter - Thi Zambrano OCCA - 09/05/2023 8:48 AM EDT TC to patient who is informed of providers message and is agreeable to starting spironolactone. CARMEN Viveros [facility]07-17-2024 Miscellaneous Notes* Telephone Encounter - Thi Zambrano OCCA - 09/05/2023 8:48 AM EDT TC to patient who is informed of providers message and is agreeable to starting spironolactone. CARMEN Viveros * Telephone Encounter - Twyla Cuevas APRN.SANTY - 09/05/2023 7:18 AM EDT Okay, to help the swelling and the potassium I am going to send in spironolactone for her to start,it is a potassium sparing diuretic, it should help with the swelling but will also help save her potassium. I sent this to [facility]. * Telephone Encounter - Maritza Preston [...] of breath, Patient had CBC done at [facility] yesterday. Patient does not have letter [...] taking her potassium pills. documented in this encounterKettering [facility]07-17-2024 Telephone encounter Note * Telephone Encounter - Twyla Cuevas APRN.SANTY - 09/05/2023 7:18 AM EDT Okay, to help the swelling and the potassium I am going to send in spironolactone for her to start,it is a potassium sparing diuretic, it should help with the swelling but will also help save her potassium. I sent this to [facility]. [facility]-16-2024 Telephone encounter Note* Telephone Encounter - Maritza [...] of breath, Patient had CBC done at [facility] yesterday. Patient does not have letter for Handicapped Swathi written 08/22/2023, asking for another copy to be mailed to her. Put on nurse's counter for Dr. Durán to sign, addressed envelope ready. Maritza Preston LPN [facility]07-16-2024 Telephone encounter Note* Telephone Encounter - Geni Cintron LPN - 09/04/2023 4:20 PM EDT Attempted to reach patient with no answer and unable to leave a message. [facility]-16-2024 Telephone encounter Note* Telephone Encounter - Twyla Cuevas APRN.SANTY - 09/04/2023 4:05 PM EDT Lab testing shows kidney function stable, potassium is low. Please see how often she has been taking her lasix and how often she is currently taking her potassium pills. [facility]07-12-2024 History of Present illness Narrative* Ilda Miller, PAULA - 08/31/2023 12:15 PM EDT [facility] Telephonic Outreach Provider Action/FYI N/A Contacted for: Engagement & SDOH screening for food insecurity and transportation -no needs identified Last questionnaire completed: 03/13/23 My Chart reminder letter sent 04/16/23, 08/07/23 Telephonic outreach: 07/05/23-left VM No response to date to My Chart questionnaire. Of note: Recent [facility] discharge 08/18/23 Contact made with patient: Yes Patient identified by name and date of . Discussed care with patient Outcomes: Patient forgot, reminder given Are you experiencing any new or worsening symptoms you need to talk about today? No Based on compacting machine operator/tender, the following disposition is advised: No symptoms or symptoms present, not severe. Routed to: No Action Needed PAN Education Provided this Outreach: No Upcoming appointments reviewed: Appointments for Next 60 Days Date Time Provider Location Dept Phone 09/20/2023 10:00 AM [facility] [phone] 09/28/2023 10:30 AM [facility] [phone] 10/11/2023 1:00 PM JIMBO SWANSON [facility] [place] [phone] 10/18/2023 10:00 AM BIBI ALEGRIA [facility] [phone] Ilda Miller RN August 31, 2023 12:38 PM documented in this encounterK[facility]07-12-[facility]24 Telephone encounter Note * Telephone Encounter - [...] Quintanilla LPN August 31, 2023 9:30 AM [facility]07-12-2024 Miscellaneous Notes* Telephone Encounter - Danita Quintanilla [...] 31, 2023 9:30 AM documented in this encounterKettering Health [facility]07-11-2024 History of Present illness Narrative* Melissa Means RN - 08/30/2023 3:46 PM EDT pcp agrees with information * Melissa Means RN - 08/30/2023 1:13 PM EDT patient had inr completed at [facility] patients inr is 1.9 (patients inr range [...] for follow up INR. documented in this encounterKettering Health [facility]07-11-2024 History of Present illness Narrative* Faviola Anthony, RT(R) - 08/30/2023 1:40 PM EDT Radiology [...] PATIENT PRESENTS WITH AN IMPLANTABLE OR ATTACHED LINING STAMPER: No RADIOLOGY DEPARTMENT: CT; Exam(s) Completed: Chest PERIPHERAL IV DATA: Not applicable SIGNED BY: RT Maryann(R) August 30, 2023 3:28 PM documented in this encounterKettering Health [facility]07-09-2024 History of Present illness Narrative* Geno Hart MD - 08/28/2023 9:00 AM EDT Patient presents with: Histoplasmosis : Disseminated due to immunocompromising meds HPI: 78-year-old woman with rheumatoid arthritis on Biologics, COPD and bronchiectasis, in the past found to have recurrent disseminated histoplasmosis and [facility] physician[facility] such with appropriate management. Went into the hospital in March transferred to [facility] from [place] for what was felt to be massive hemoptysis which did not bottom turning lathe tender to be that bad. She also had [...] She at one point went back to [place] for some type of edema that caused open sores on her legs which got treated in the hospital and became better. Currently states no fevers or chills. The prior horrible cough she had at the [facility] after hospitalization is gone. She has no wasting, appetite loss severe shortness of breath, current hemoptysis. She has no problem with her bowels except 2 weeks ago had a rectal bleed ended up seeing a bulldozer press operator in [facility] and after 3 units of blood did well. She had a 6-day admission and Dr. Orellana bulldozer press operator did an EGD with duodenal bleeding ulcer [...] (FLONASE) 50 mcg/actuation nasal spray Use 1 Melbourne in each nostril once daily. [address] (PROTONIX) 40 mg tablet Take 1 tablet by mouth once daily. 90 tablet 3 vit A,C,A-Otjy-Tjxzvm (OCUVITE PRESERVISION) 2,148 mcg-113 mg-45 mg-17.4mg tab [...] rheumatoid factor (HCC) 03/07/2015 Dr. Hurley ([facility]) Unspecified hemorrhoids without mention of complication [...] SPINE FUSN,POST INTERBODY 2012 Dr. Armando at [facility]. Diskectomy and laminectomy PAST SURGICAL HISTORY OF 03/07/1999 removal facial lesion PAST SURGICAL HISTORY OF 08/17/2014 excision soft tissue mass left index finger TONSILLECTOMY PRIMARY/SECONDARY <AGE 12 TRANSCATH RETRIEVAL,PERCUT 12/28/2006 ACTIVE PROBLEM LIST Esophageal Reflux Meralgia Paresthetica Other Voice and Resonance Disorders Arthropathy, Unspecified, Site Unspecified Elevated Liver Enzymes Skilled Nursing Current Use of Anticoagulant Therapy Hnp (Herniated [...] 4 months (around 12/29/2023). documented in this encounterKettering Health [facility]ble07-08-2024 Telephone encounter Note * Telephone Encounter - Ashley Rahman MA - 08/27/2023 9:59 AM EDT Please call Pt to schedule Limited Echo prior to next OV with Bibi Alegria. [facility]-08-[facility]24 Miscellaneous Notes* Telephone Encounter - Ashley Rahman MA - 08/27/2023 9:59 AM EDT Please call Pt to schedule Limited Echo prior to next OV with Bibi Alegria. documented in this encounterKettering Health [facility]ble07-08-2024 NoteHNO ID: [id number] Author: WILLIAM MESSINA, DO Service: ? Author Type: Physician Type: Progress Notes Filed: 08/27/2023 14:47 Note Text: [facility] SECTION OF REGIONAL CARDIOLOGY [facility] OUTPATIENT VISIT DATE August 27, 2023 PRIMARY CARE PHYSICIAN: Claudine Durán [address] [place] [address] HISTORY OF PRESENT ILLNESS: Ms. Bustamante is [...] (HCC) COPD (chronic obstructive pulmonary disease) ([facility]) Disseminated histoplasmosis Colitis, immunosuppression, 01/2018. Diverticulosis of colon (without mention of hemorrhage) Diverticulosis DVT, recurrent, lower extremity, acute ([facility]) 12/10/2014 Esophageal reflux Hiatal hernia 02/25/2018 Hypertension Lung nodule Personal history of unspecified urinary disorder Rheumatoid arthritis involving multiple sites with positive rheumatoid factor ([facility]) 03/07/2015 Dr. Hurley ([facility]) Unspecified hemorrhoids without mention of complication Hemorrhoids PAST SURGICAL HISTORY Procedure Laterality Date COLONOSCOPY FLX DX W/COLLJ SPEC WHEN PFRMD 10/2003 Colonoscopy COLONOSCOPY FLX DX W/COLLJ SPEC WHEN PFRMD 05/18/2014 Colonoscopy COLONOSCOPY (more content not included)...[facility] [id number] History of Present illness Narrative* William Messina, - 08/27/2023 8:28 AM EDT Images from the original note were not included. [facility] SECTION OF REGIONAL CARDIOLOGY [facility] OUTPATIENT VISIT DATE August 27, 2023 PRIMARY CARE PHYSICIAN: Claudine Durán [address] [place] [address] HISTORY OF PRESENT ILLNESS: Ms. Bustamante is [...] (HCC) COPD (chronic obstructive pulmonary disease) ([facility]) Disseminated histoplasmosis Colitis, immunosuppression, 01/2018. Diverticulosis of colon (without mention of hemorrhage) Diverticulosis DVT, recurrent, lower extremity, acute ([facility]) 12/10/2014 Esophageal reflux Hiatal hernia 02/25/2018 Hypertension Lung nodule Personal history of unspecified urinary disorder Rheumatoid arthritis involving multiple sites with positive rheumatoid factor ([facility]) 03/07/2015 Dr. Hurley ([facility]) Unspecified hemorrhoids without mention of complication [...] SPINE FUSN,POST INTERBODY 2011 Dr. Armando at [facility]. Diskectomy and laminectomy PAST SURGICAL HISTORY [...] (FLONASE) 50 mcg/actuation nasal spray Use 1 Melbourne in each nostril once daily. pantoprazole DR (PROTONIX) 40 mg tablet Take 1 tablet by mouth once daily. vit A,C,V-Xvbz-Guwepc (OCUVITE PRESERVISION) 2,148 mcg-113 mg-45 mg-17.4mg tab [...] up to 7 days. William Messina DO, [facility], [facility] [address] Phlebotomy Tech, [facility] Phlebotomy Tech, [facility] Phlebotomy Tech, [facility] Cardiac Rehabilitation Phlebotomy Tech, [facility] Congestive [facility] Failure Clinic Phlebotomy Tech, [facility] Ambulatory Cardiology Clinical School Treasurer Profressor of Medicine, [facility] of Medicine - [facility] Staff Exceptional Needs Teacher, Les Pierce Department of Cardiovascular Medicine/Heart and Vascular [place], [facility] Please note: This note has been produced using speech recognition software and may contain errors related to that system including madelyn, punctuation, spelling, words, gender and phrases that may be inappropriate. documented in this encounterKettering Health [facility]ble07-05-2024 Telephone encounter Note * Telephone Encounter - [...] Scheduled pt with Dr. Messina next week. [facility]07-05-2024 Miscellaneous Notes* Telephone Encounter - Gracy Atkins [...] since d/c from hospital. documented in this encounterKettering Health [facility]07-05-2024 Telephone encounter Note * Telephone Encounter - Shirley Mccloud - 08/24/2023 3:53 PM EDT Pt called back and would like to speak to the nurses about her issues. [facility]-05-[facility]24 Telephone encounter Note* Telephone Encounter - Gracy [...] how pt wasdoing since d/c from hospital. [facility]07-03-2024 History of Present illness Narrative* Melissa Means RN - 08/22/2023 4:20 PM EDT pcp agrees with information * Melissa Means RN - 08/22/2023 10:02 AM EDT patient had inr completed at [facility] patients inr is 1.1 (patients inr range [...] not agree with recommendation documented in this encounterKettering Health [facility]ble07-03-2024 Instructions* Patient Instructions* Claudine Durán MD - [...] 1 to 2 weeks. documented in this encounterKettering Health [facility]ble06-20-2024 History of Present illness Narrative* Jimbo Swanson APRN.SALES INCENTIVE ANALYST - 08/09/2023 11:42 AM EDT Continue with current Coumadin dose unchanged and check INR in 2 weeks * Melissa Means RN - 08/09/2023 10:19 AM EDT patient had inr completed at [facility] patients inr is 2.1 (patients inr range [...] reading since dose change documented in this encounterKettering Health [facility]ble06-19-2024 History of Present illness Narrative* Twyla Cuevas APRN.SUSTAINABILITY CONSULTANT - 08/08/2023 2:37 PM EDT SUBJECTIVE Haydee [...] (FLONASE) 50 mcg/actuation nasal spray Use 1 Melbourne in each nostril once daily. vit A,C,F-Jctp-Rwinkk (OCUVITE PRESERVISION) 2,148 mcg-113 mg-45 mg-17.4mg tab [...] Skin (Hcc) - 07/11/2022 Copd Without Exacerbation ([facility]) - 08/28/2019 Comment: Moderate obstruction 03/2019 and 08/2019 PFTs. Bronchiectasis Without Complication ([facility]) - 04/26/2019 Comment: Continue present management.PFTs as [...] Comment: Added automatically from request for surgery [id number] Ddd (Degenerative Disc Disease), Lumbar - 07/30/2017 Spondylolisthesis of Lumbar Region - 07/30/2017 History of Recurrent Deep Vein Thrombosis (Dvt) - 10/29/2016 Pain in Right Hip - 05/05/2016 Low Back Pain With Right-Sided Sciatica - 05/05/2016 Essential Hypertension - 03/07/2015 Rheumatoid Arthritis (Hcc) - 03/07/2015 Comment: Dr. Hurley ([facility]) Ganglion Cyst - 08/17/2014 Atrophic Vaginitis - 03/06/2013 Hnp (Herniated Nucleus Pulposus), Lumbar - 03/20/2011 Elevated Liver Enzymes - 04/01/2009 Skilled Nursing Current Use of Anticoagulant Therapy - 04/01/2009 [...] to improve, for Keep next scheduled appointment.. Twyla Cuevas APRN-SANTY documented in this encounterKettering Health [facility]06-18-2024 Telephone encounter Note * Telephone Encounter - [...] CARMEN Viveros August 07, 2023 8:47 AM [facility]-18-2024 Miscellaneous Notes* Telephone Encounter - Thi Zambrano [...] 07, 2023 8:47 AM documented in this encounterKettering Health [facility]ble06-11-2024 Telephone encounter Note * Telephone Encounter - [...] LPN July 31, 2023 11:34 AM ] [facility]-11-2024 Miscellaneous Notes* Telephone Encounter - Lynne Mann [...] 2023 11:34 AM ] documented in this encounterKettering Health [facility]ble06-10-2024 Telephone encounter Note * Telephone Encounter - [...] Patel MA July 30, 2023 9:25 AM [facility]-10-2024 Miscellaneous Notes* Telephone Encounter - Danielle Patel [...] 30, 2023 9:25 AM documented in this encounterKettering Health [facility]ble06-06-2024 History of Present illness Narrative* Lauren Bowens APRN.CNP - 07/26/2023 3:21 PM EDT Agree with below recommendations. Lauren Bowens APRN.CNP * Melissa Means RN - 07/26/2023 11:06 AM EDT patient had inr completed at [facility] patients inr is 1.6 (patients inr range is 1.7-2.2( patient is currently taking 5mg daily patients last dose change was on 07/05/23 due to a high level of 3.5 (dose at that time was 5mg Sun,Wed and 7.5mg all other days) patient has had no changes in medication and no missed doses and no change in diet recommend: patient changes coumadin to 7.5mg Th and 5mg all other days and recheck in 2 weeks patient has been scheduled for a 2 week follow up inr on 08/09/23 please review and advise on recommendation patient only needs called if provider does not agree with recommendation documented in this encounterKettering Health [facility]ble06-03-2024 Telephone encounter Note * Telephone Encounter - [...] in August and will discuss with him. [facility]06-03-2024 Miscellaneous Notes* Telephone Encounter - Yesenia Weinstein [...] advise, Lulu Quigley RN documented in this encounterKettering Health [facility]ble06-01-2024 Telephone encounter Note * Telephone Encounter - [...] a day. Authorizing Provider: CLAUDINE DURÁN MD [facility]05-31-2024 Telephone encounter Note* Telephone Encounter - Lulu [...] Please review and advise, Lulu Quigley RN [facility]05-29-2024 Telephone encounter Note* Telephone Encounter - Claudine Durán MD - 07/18/2023 1:17 PM EDT The following approved medication requests have been transmitted electronically. Requested Prescriptions Pending Prescriptions Disp Refills itraconazole (SPORANOX) 10 mg/mL solution 1200 mL 0 Sig: Take 20 mL by mouth two times a day. Claudine Durán MD [facility]05-29-2024 Miscellaneous Notes* Telephone Encounter - Claudine Durán [...] you. Danielle Patel MA. documented in this encounterKettering Health [facility]ble05-28-2024 Telephone encounter Note * Telephone Encounter - [...] Please advise. Thank you. Danielle Patel MA. [facility]05-24-2024 Telephone encounter Note* Telephone Encounter - Jimbo Swanson APRN.CNS - 07/13/2023 12:00 PM EDT OK please schedule with ortho [facility]05-24-2024 Miscellaneous Notes* Telephone Encounter - Jimbo Swanson APRN.CNS - 07/13/2023 12:00 PM EDT OK please schedule with ortho * Telephone Encounter - Diana Evans LPN - 07/13/2023 9:17 AM EDT Patient aware of results and provider recommended follow up. Patient would like to see an orthopedic Provider here in [place] at the [facility]. Aware may need to be scheduled with [...] her knee. Would recommend seeing orthopedist or food and beverage server for this at her earliest convenience, check to see if prednisone is helping. Left message. documented in this encounterKettering Health [facility]05-24-2024 Telephone encounter Note * Telephone Encounter - Diana Evans LPN - 07/13/2023 9:17 AM EDT Patient aware of results and provider recommended follow up. Patient would like to see an orthopedic Provider here in [place] at the [facility]. Aware may need to be scheduled with a PA instead of a Dr and verbalizes understanding. If a consult or referral needed, please call patient after consult ordered, to assist in schedulingappointment. Patient is on 3rd day of Prednisone today. States had a better day yesterday than in a long time and accomplished a lot.. No pain and less edema. Diana Evans LPN [facility]05-23-2024 Telephone encounter Note* Telephone Encounter - Yesenia Weinstein LPN - 07/12/2023 3:44 PM EDT No answer. Left message for patient to call office and ask to speak to a nurse regarding Ultrasoundresults [facility]05-23-2024 Telephone encounter Note* Telephone Encounter - Jimbo Swanson APRN.CNS - 07/12/2023 3:14 PM EDT No thrombophlebitis or DVT. Does have fluid collection at her knee. Would recommend seeing orthopedist or food and beverage server for this at her earliest convenience, check to see if prednisone is helping. Left message. [facility]-23-2024 History of Present illness Narrative* Jimbo Swanson APRN.CNS - 07/12/2023 3:08 PM EDT Continue Coumadin dose unchanged and check INR in 2 weeks * Melissa Means RN - 07/12/2023 10:12 AM EDT patient had inr completed at [facility] patients inr is 1.8 (patients inr range [...] reading since dose change documented in this encounterKettering Health [facility]ble05-21-2024 History of Present illness Narrative* Jimbo Swanson APRN.SALES INCENTIVE ANALYST - 07/10/2023 1:53 PM EDT SUBJECTIVE: RSV [...] bicuspid valve, lung nodule bronchiectasis and COPD. P D Driver: Florence Collins MD, for follow-up of lung nodules bronchiectasis. Noted are a likely etiology for underlying bronchiectasis. Exceptional Needs Teacher: William GOTTI, aortic stenosis. 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 Reports currently not taking Humira or methotrexate due to histoplasmosis. Infectious disease Dr. Hart, August appointment. She was seen by his PCP in May 2023 [facility]. She was [...] fluticasone (FLONASE) 50 mcg/actuation nasal spray^Use 1 Melbourne in each nostril once daily.^Disp: 3 Each^Rfl: 3 vit A,C,C-Fyss-Qtxtjs (OCUVITE PRESERVISION) 2,148 mcg-113 mg-45 mg-17.4mg tab^Take [...] Diverticulosis DVT, recurrent, lower extremity, acute ([facility]) 12/10/2014 Esophageal reflux Hiatal hernia 02/25/2018 Hypertension Lung nodule Personal history of unspecified urinary disorder Rheumatoid arthritis involving multiple sites with positive rheumatoid factor (HCC) 03/07/2015 Dr. Hurley ([facility]) Unspecified hemorrhoids without mention of complication [...] Level: 4 - Moderate documented in this encounterKettering Health [facility]ble05-16-2024 History of Present illness Narrative* Melissa Means RN - 07/05/2023 4:27 PM EDT PATIENT NOTIFIED OF INFORMATION * Jimbo Swanson APRN.SALES INCENTIVE ANALYST - 07/05/2023 2:21 PM EDT Agree hold Coumadin today and then take 5 mg daily starting tomorrow and check INR in 1 week * Melissa Means RN - 07/05/2023 1:48 PM EDT patient had inr completed at [facility] patients inr is 3.5 (patients inr range [...] and advise on recommendation documented in this encounterKettering Health [facility]ble05-16-2024 History of Present illness Narrative* Ilda Miller RN - 07/05/2023 4:00 PM EDT [facility] Telephonic Outreach Provider Action/FYI N/A Contacted for: Engagement Last questionnaire completed: 03/13/23 My Chart reminder letter sent 04/16/23 No response to date to My Chart questionnaire. Contact made with patient: No, left message. Ilda Miller RN July 05, 2023 4:04 PM documented in this encounterKettering Health [facility]05-13-2024 Telephone encounter Note * Telephone Encounter - [...] 10/11/2023 Please advise. Thank you. CARMEN Viveros. [facility]05-13-2024 Miscellaneous Notes* Telephone Encounter - Thi Zambrano [...] Thank you. CARMEN Viveros. documented in this encounterKettering Health [facility]ble05-13-2024 Telephone encounter Note * Telephone Encounter - [...] Please advise. Thank you. Danielle Patel MA. [facility]05-13-2024 Miscellaneous Notes* Telephone Encounter - Danielle Patel [...] you. Danielle Patel MA. documented in this encounterKettering Health [facility]ble04-23-2024 Telephone encounter Note * Telephone Encounter - Brittany Cedillo LPN - 06/12/2023 2:59 PM EDT Pt has not reviewed the my chart message. Message left to her home number to either review the my chart message or call back to spoke to a nurse. [facility]04-23-2024 Miscellaneous Notes* Telephone Encounter - Brittany Cedillo [...] Thank you. Dionne Nunez. documented in this encounterKettering Health [facility]ble04-19-2024 Telephone encounter Note * Telephone Encounter - Brittany Cedillo LPN - 06/08/2023 10:05 AM EDT Pt notified via my chart. [facility]04-19-2024 Telephone encounter Note* Telephone Encounter - Claudine [...] two times a day. Claudine Durán MD [facility]04-18-2024 Telephone encounter Note* Telephone Encounter - Maritza [...] advise. Thank you. Maritza Preston LPN. Yes [facility]04-18-2024 Telephone encounter Note* Telephone Encounter - Dionne [...] found Please advise. Thank you. Dionne Nunez. [facility]04-16-2024 Instructions* Patient Instructions* Claudine Durán MD - 06/05/2023 3:50 PM EDT Consider seeing Dr. Friend's GI partner for follow up on elevated liver enzymes. documented in this encounterKettering Health [facility]ble04-16-2024 History of Present illness Narrative* Claudine Durán MD - 06/05/2023 3:28 PM EDT This note was created using [employer]. Subjective Haydee Bustamante is a 78 year old female. Patient presents with: Discharge Skilled Rehab: Discharged from [facility] SUBJECTIVE: Haydee Bustamante is a 78 year old year old lady here today for follow up appointment for review of medical conditions after in [facility] after being in TCU after hospitalization. Did well with PT/OT ST at TCU at [facility] noted for swallowing--no problems with swallowing now. Gastric ulcer--was not aware; also anemia 04/12 Hg 10.1 DVT noted bilateral; pain resolved. [...] rheumatoid factor (HCC) 03/07/2015 Dr. Hurley ([facility]) Unspecified hemorrhoids without mention of complication [...] (FLONASE) 50 mcg/actuation nasal spray Use 1 [place] in each nostril once daily. albuterol HFA (PROAIR HFA) 90 mcg/actuation inhaler Inhale 2 Puffs as instructed every 4 hours as needed. vit A,C,O-Cjdc-Qarhim (OCUVITE PRESERVISION) 2,148 mcg-113 mg-45 mg-17.4mg tab [...] the date of the service which included [id number] patient care, completing clinical documentation, obtaining and/or reviewing separately obtained history, performing a medically appropriate examination, counseling and educating the patient/family/caregiver, ordering medications, tests, or procedures, independently interpreting results (not separately reported), and communicating results to the patient/family/caregiver. Claudine Durán MD documented in this encounterKettering Health [facility]ble03-11-2024 Miscellaneous Notes* Telephone Encounter - Brittany Cedillo LPN - 04/30/2023 11:09 AM EDT Rec'd rec'd from [facility] pt to be d/c from [facility] to [facility] private pay for therapy documented in this encounterKettering Health [facility]03-08-2024 Discharge summary Author Edinson Irvin [facility] April 27, 2023 1:24pm Note Date/Time April 27, 2023 1:24 pm [facility] Medical Records Department [address] [place] [address] Transfer to [facility] MR#: [id number] Acct: [id number] Name: HAYDEE BUSTAMANTE Rep #:[id number] : 1945 77 From: Edinson Irvin MD PCP: Dr. Claudine Durán MD Status:AD M IN Certification of patient admission REQUIRED AT TIME OF ADMISSION. I CERTIFY THAT POST-HOSPITAL ECF SERVICES ARE REQUIRED TO BE GIVEN ON AN IN-PATIENT BASIS BECAUSE OF THE ABOVE NAMED PATIENT'S NEED FOR JAIL CARE ON A CONTINUING BASIS FOR THE CONDITION(S) FOR WHICH HE/SHE WAS RECEIVINGIN-PATIENT HOSPITAL SERVICES PRIOR TO HIS/HER TRANSFER TO THE ECF. 04/27/23 1324<Electronically signed by Edinson Irvin MD> [...] Additional Instructions / Restrictions: Discharge 04/30/2023 to [facility], private pay, part B therapies. Discharge Orders/Prescriptions [...] Qty: 0 0RF fluticasone propionate 50 mcg/actuation Melbourne,Suspension 1 spray NASAL DAILY Qty: 0 0RF [...] applicable): CC: Dr. Claudine Durán MD ~ [facility] Work Phone: [phone]) 944-276003-08-2024 Discharge summary Author [facility] April 27, 2023 1:23pm Note Date/Time April 27, 2023 1:17 pm [facility] Medical Records Department [address] [place] [address] Discharge Summary 04/27/23 1316 MR#: [id number] Acct: [id number] Name: HAYDEE BUSTAMANTE Rep #:[id number] : 1945 77 From: Edinson Irvin MD PCP: Dr. Claudine Durán MD Status:AD M IN Location: [place] [address] Providers Date of Admission: 04/05/23 Primary Care Physician: Dr. Claudine Durán MD Consultations 04/10/23 10:44 Consult: Onc/Wound/piece dyeing machine tender Routine Comment: Reason for Consult:: bilateral lowers [...] 1 tab PO DAILY supplement 03/19/23 vitamins A,C,N-giur-nqnxdy 2,148 mcg-113 mg-45 mg-17.4 mg tablet (PreserVision [...] DVT right lower extremity. Discharge 04/30/2023 to [facility], [facility], part B therapies. Physical Exam Const alert [...] Uncontrolled pain Additional Instructions: Discharge 04/30/2023 to [facility], [facility], part B therapies. Meaningful Use Info Meaningful Use Diagnoses (Choose all that apply): None applicable Discharge Plan Admission Admit Date/Time: 04/05/23 13:33 Primary Reason for Your Visit: Debility. Attending Provider: Edinson Irvin Chi Primary Care Provider: Claudine Durán Instructions Additional Instructions / Restrictions: Discharge 04/30/2023 to [facility], private pay, part B therapies. Discharge Orders/Prescriptions [...] Qty: 0 0RF fluticasone propionate 50 mcg/actuation Melbourne,Suspension 1 spray NASAL DAILY Qty: 0 0RF [...] Durán MD; Dr. Edinson Irvin MD~ Signed [facility] Work Phone: 1(300) 917-586902-21-2024 History and physical note Author Edinson Irvin [facility] April 11, 2023 11:37am Note Date/Time April 05, 2023 8:06pm [facility] Medical Records Department [address] [place] [address] History & Physical Exam 04/05/231955 MR#: [id number] Acct: [id number] Name: HAYDEE BUSTAMANTE Rep #:[id number] : 1945 77 From: Edinson Irvin MD PCP: Dr. Claudine Durán MD Status:AD M IN Location: [facility] HPI - General General Date of Admission: 04/05/23 Date of Service: 04/05/23 Chief Complaint: Here for rehabilitation. HPI Narrative 03/31/2023 HAYDEE BUSTAMANTE, is a 77 Female who presents to [facility] ED with edema. FTT, bilateral lower extremity edema, right lower extremity redness. Unable to care for self at home, fell, could not get up. On floor for hours. Worsening right leg pain. WBC 19.4, Hemoglobin 8.3, INR 1.3, K 3.2, BNP okay, CK okay. Chest X-ray negative, X-ray right tibia/fibula negative. Clindamycin IV for right lower extremity cellulitis. 03/31/2023 Admit to [facility]. Levaquin, Doppler right lower extremity for [...] rehabiliation, strengthening, prior to discharge home alone. [facility] Medical History (Updated 04/05/23 @ 20:05 [...] Q24H 03/19/23 [History Last Taken Unknown] vitamins A,C,O-lpcg-sdifsv 2,148 mcg-113 mg-45 mg-17.4 mg tablet (PreserVision [...] 10mg daily, interaction with coumadin noted. 04/11/23 113<Electronically signed by Edinson Irvin MD> Cosigner Signature (if applicable): cc: Dr. Claudine Durán MD; Dr. Edinson Irvin MD ~* Signed [facility] Work Phone: 1(781) 297-617502-19-2024 Procedure [facility] 04-06-2023 Progress note Author Amparo Marina [facility] April 06, 2023 3:02pm Note Date/Time April 06, 2023 2:39pm [facility] Medical Records Department [address] [place] [address] Progress Note - Pharmacy 04/06/23 1438 MR#: [id number] Acct: [id number] Name: HAYDEE BUSTAMANTE Rep #:[id number] : 1945 77 From: Amparo Marina PCP: Dr. Claudine Durán MD Status:AD M IN Location: [facility]CU TC03-1 Documented by User: Amparo Marina 04/06/23 15:02 [...] 04/06/23 10:00 04/06/23 08:50 Fluticasone 0.05% 1 Melbourne Nasal.Sry NASAL 1 spray DAILY MARGARETTE Administration Gabapentin 300 mg 04/05/23 22:00 04/06/23 08:52 Gabapentin 300 Mg Capsule PO 300 mg Q12 MARGARETTE Administration Itraconazole 200 mg 04/05/23 17:00 04/06/23 08:48 Itraconazole 100 Mg Capsule PO 200 mg BIDCM [facility] Administration Magnesium Citrate 300 ml 04/05/23 20:14 Magnesium Citrate 300 Ml PO DAILY PRN Constipation Multivitamins 1 tablet 04/06/23 08:00 04/06/23 08:49 Multivitamins,Therapeutic Tablet PO [address] [facility] Administration Multivitamins/Minerals 2 cap 04/05/23 17:00 04/06/23 08:48 Multivitamin (Healthy Eyes) Capsule PO 2 cap BIDCM [facility] Administration Oxycodone HCl 5 mg 04/05/23 14:09 Oxycodone 5 Mg Tablet PO Q4H PRN PRN Pain Score 4-10 Pantoprazole Sodium 40 mg 04/05/23 22:00 04/06/23 08:49 Pantoprazole Sodium 40 Mg Tablet PO 40 mg BID [facility] Administration Potassium Chloride 20 meq 04/07/23 08:00 Potassium Chloride Oral Tablet 20 Meq PO DAILYCM [facility] Senna/Docusate Sodium 1 tablet 04/05/23 22:00 04/06/23 08:49 Senna/Docusate Sodium 1 Tablet PO 1 tablet BID [facility] Administration Tuberculin PPD 0.1 ml 04/13/23 10:00 [...] Amparo Marina Cosigner Signature (if applicable): 04/06/23 1455 <Electronically signed by Edinson Irvin MD> CC: ~ Signed [facility] Work Phone: 1(465) 280-352802-15-2024 Consult note Author Alcides Abel [facility] April 05, 2023 10:22am Note Date/Time April 04, 2023 4:12pm [facility] System Cancer Care [address] [place] [address] Consultation - Oncology IP 04/04/23 1610 MR#: [id number] Acct: [id number] Name: HAYDEE BUSTAMANTE Rep #:[id number] : 1945 77 From: Alcides tavares MD PCP: Dr. Claudine Durán MD Status:AD M IN Location: [facility] [id number]- 1 Assessment & Plan Assessment/Plan (1) Thrombocytopenia: Status: Acute Code(s): D69.6 - Thrombocytopenia, unspecified Plan: Acute moderately severe onset is in March 2023 no active bleeding and no evidence for recent thrombosis no recent use of heparin. She has a remote history of venous thromboembolic disease and was on Coumadin until recent hospitalization at [facility] in early March 2023. Has had multiple [...] prophylaxis.. 4. Patient's is an established at [facility] and therefore I advised continued follow-up there. Impression and plan discussed with the patient and her friend. Impression and plan discussed with hospitalist. Alcides Abel MD Vault Service Mechanic, [facility] Divisions of Medical Oncology & Hematology Department of Internal Medicine [place] [address] This note was generated using a voice [...] an acute thrombocytopenia (see lab section for footwear sales representative platelet counts) with no active bleeding or thrombosis. The patient has multiple chronic medical problems and multiple hospitalizations between [facility] and [facility] and is presenting with failure to thrive [...] early March 2023 she was seen at [facility] and transferred to [facility] with suspected bowel perforation and was treated conservatively with antimicrobials. On the current admission she was receiving Cipro and Flagyl in addition to itraconazole s that was started around February 2023. In her last admission to [facility] in March 2023 Coumadin was held, because not clear and patient as far as she can tell did not receive any heparin injections . Advanced Directives Power of Sales Incentive Analyst: Yes Living Will: Yes [facility] Medical History (Updated 04/05/23 @ 10:09 [...] Q24H 03/19/23 [History Last Taken Unknown] vitamins A,C,R-mkts-ydvopc 2,148 mcg-113 mg-45 mg-17.4 mg tablet (PreserVision [...] (Auto) 76.5 H, Lymph % (Auto) 9.4L, Maury % (Auto) 8.3, Eos % (Auto) 4.9, Baso % (Auto) 0.2, Absolute Neuts (auto)4.7, Absolute Lymphs (auto) 0.58 L, Nucleated RBC % 0, Diff Path Review June, Platelet Estimate MKD DEC, Anisocytosis 2+ Laboratory [...] MD; Dr. Jorgito Agarwal DO ~ Signed [facility] Work Phone: [phone]) 524-635902-14-2024 Progress note Author Jasmyn Nagyessentia healthstacey [facility] April 04, 2023 6:11pm Note Date/Time April 04, 2023 6:11pm [facility] Medical Records Department [address] [place] [address] Progress Note - Hospitalist 04/04/23 180 MR#: [id number] Acct: [id number] Name: HAYDEE BUSTAMANTE Rep #:[id number] : 1945 77 From: Jasmyn Chan DO PCP: Dr. Claudine Durán MD Status:AD M IN Location: [place] [address] Reason for Visit Reason for Visit: Diagnoses [...] (Auto) 76.5 H, Lymph % (Auto) 9.4L, Maury % (Auto) 8.3, Eos % (Auto) 4.9, Baso % (Auto) 0.2, Absolute Neuts (auto)4.7, Absolute Lymphs (auto) 0.58 L, Nucleated RBC % 0, Diff Path Review May foll, Platelet Estimate MKD DEC, Anisocytosis 2+ 04/04/23 16:19: WBC 5.3, RBC 3.42 L, Hgb 9.7 L, Hct 29.5 L, MCV 86.3, MCH 28.4, MCHC 32.9, RDW Std Deviation 70.8 H, RDW Coeff of Catarino 23.1 H, Plt Count 41 L*, MPV 10.2, Immature Gran % (Auto) 0.600, Neut % (Auto) 73.8 H, Lymph % (Auto) 11.4 L, Maury % (Auto) 9.8, Eos % (Auto) 4.2, Baso % (Auto) 0.2, Absolute Neuts (auto) 3.9, Absolute Lymphs (auto) 0.60 L, Nucleated RBC % 0, Differential Comment SCANNED, Diff Path Review May foll, Anisocytosis 2+ Physical Exam Narrative alert, [...] 25 minutes Charges/Coding Visit Charges Inpatient E&M: 34849 Subs Hosp L1 04/04/23 1811 <Electronically signed by Jasmyn Chan DO> Cosigner Signature (if applicable): CC: ~ Signed [facility] Work Phone: [phone]) 862-852602-13-2024 Progress note Author Mathew Friend [facility] April 03, 2023 5:53pm Note Date/Time April 03, 2023 5:53pm [facility] Medical Records Department [address] [place] [address] Progress Note - GI 04/03/23 1750 MR#: [id number] Acct: [id number] Name: HAYDEE BUSTAMANTE Rep #:[id number] : 1945 77 From: Mathew Orellana DO PCP: Dr. Claudine Durán MD Status:AD M IN Location: [place] [address] Subjective Subjective Patient is doing well without [...] Freq: Status: Active Protocol: Document 04/01/23 12:03 AG (Rec: 02/11/24 12:03 [id number]) Nutrition Malnutrition Evidence of Malnutrition Exists Yes [...] (Auto) 82.5 H, Lymph % (Auto) 6.5L, Maury % (Auto) 7.5, Eos % (Auto) 2.7, [...] PE),Recent diagnosis Histoplasmosis, recent 03/21/33 evaluation at [facility] with transfer to [facility] secondary to concerns for complex bowel [...] needs any acid suppression she can get collateral specialist fate or H2 receptor pietro. Charges/Coding Visit Charges Inpatient E&M: 03368 Subs Hosp L3 04/03/23 1753 <Electronically signed by Mathew Orellana DO> Cosigner Signature (if applicable): CC: ~ Signed [facility] Work Phone: 1(343) 152-126002-13-2024 Progress note Author Jasmyn Chan [facility] April 03, 2023 5:36pm Note Date/Time April 03, 2023 5:36pm [facility] Medical Records Department [address] [place] [address] Progress Note - Hospitalist 04/03/231729 MR#: [id number] Acct: [id number] Name: HAYDEE BUSTAMANTE Rep #:[id number] : 1945 77 From: Jasmyn Chan DO PCP: Dr. Claudine Durán MD Status:AD M IN Location: [place] [address] Reason for Visit Reason for Visit: Diagnoses [...] Protocol: Document 04/01/23 12:03 (Rec: 04/01/23 12:03 [id number]) Nutrition Malnutrition Evidence of Malnutrition Exists Yes [...] (Auto) 82.5 H, Lymph % (Auto) 6.5L, Maury % (Auto) 7.5, Eos % (Auto) 2.7, [...] 25 minutes Charges/Coding Visit Charges Inpatient E&M: 15672 [facility] Hosp L1 04/03/23 6963 <Electronically signed by Jasmyn Chan DO> Cosigner Signature (if applicable): CC: ~ Signed [facility] Work Phone: 1(514) 951-738902-12-2024 Progress note Author Jasmyn Chan [facility] April 02, 2023 8:07pm Note Date/Time April 02, 2023 8:07pm [facility] Medical Records Department [address] [place] [address] Progress Note - Hospitalist 04/02/232000 MR#: [id number] Acct: [id number] Name: HAYDEE BUSTAMANTE Rep #:[id number] : 1945 77 From: Jasmyn Chan DO PCP: Dr. Claudine Durán MD Status:AD M IN Location: [place] [address] Reason for Visit Reason for Visit: Diagnoses [...] Protocol: Document 04/01/23 12:03 (Rec: 04/01/23 12:03 [id number]) Nutrition Malnutrition Evidence of Malnutrition Exists Yes [...] (Auto) 86.6 H, Lymph % (Auto) 6.4L, Maury % (Auto) 5.4, Eos % (Auto) 0.6, [...] 25 minutes Charges/Coding Visit Charges Inpatient E&M: 07748 Subs Hosp L1 04/02/232006 <Electronically signed by Jasmyn Chan DO> Cosigner Signature (if applicable): CC: ~ Signed [facility] Work Phone: 1(715) 112-174202-12-2024 Miscellaneous Notes* Telephone Encounter - Claudine Durán MD - 04/02/2023 7:52 PM EST Noted regarding fall. * Telephone Encounter - Doretha Miller RN - 04/02/2023 9:44 AM EST Friend answered pt's phone, and after informed this is a nurse in pcp office, friend reported pt was admitted into [facility] PCU after a fall on Sat. Friend does not think there was an injury from fall. Friend reports patient was in [facility] for 1 week, and has been in and out of ER several times since discharge. Advised we would f/u with pt once discharged from [facility]. * Telephone Encounter - Claudine Durán MD - 04/01/2023 4:51 PM EST Noted Patient had recent labs done during admission (was at [facility] and discharged 2/4) Noted alk phos in 200 range. Mild [...] 02/27/2023 1:48 PM EST Faxed received from [facility] Melissa Dorsey [facility] stating that the liver enzymes are worse. Please review copy of labs and advise. documented [facility]-2024 Consult note Author Mathew Orellana [facility] April 02, 2023 5:06pm Note Date/Time April 02, 2023 5:00pm [facility] Medical Records Department [address] [place] [address] Consultation - GI 04/01/23 1658 MR#: [id number] Acct: [id number] Name: HAYDEE BUSTAMANTE Rep #:[id number] : 1945 77 From: Mathew Orellana DO PCP: Dr. Claudine Durán MD Status:AD M IN [facility] HPI Consult Data Date of Consult: 04/01/23 HPI Narrative Reason for Consultation: Anemia HPI Narrative: HAYDEE BUSTAMANTE, is a 77-year-old female history of COPD, Severe . GERD. DVT and PEon Coumadin, histoplasmosis of the lung, RA who presented to [facility] ED 03/31/2023 with bilateral lower extremity edema. She was seen here 03/28/2023 with lower extremity edema. She was initially seen here 03/26/2023 for shortness of breath and inability to care for herself at home after a recent hospital stay at [facility] from which she was discharged on Cipro [...] her because her hemoglobin decreased to 6.5. [facility] Medical History (Updated 04/02/23 @ 17:[address] Carmona Friend, DO) Colitis COPD (chronic obstructive pulmonary disease) [...] Q24H 03/19/23 [History Last Taken Unknown] vitamins A,C,F-ujvb-sutqal 2,148 mcg-113 mg-45 mg-17.4 mg tablet (PreserVision [...] Protocol: Document 04/01/23 12:03 (Rec: 04/01/23 12:03 [id number]) Nutrition Malnutrition Evidence of Malnutrition Exists Yes [...] (Auto) 86.6 H, Lymph % (Auto) 6.4L, Maury % (Auto) 5.4, Eos % (Auto) 0.6, [...] Durán M.D. Performed By: Dany Kramer RVT Assessment & Plan Assessment/Plan (1) Cellulitis: (2) Anemia: PLAN: Plan The patient is a 77 y/o F w/ PMHx: GERD, Rheumatoid Arthritis, Hx VTE (DVT, PE),Recent diagnosis Histoplasmosis, recent 03/21/33 evaluation at [facility] with transfer to [facility] secondary to concerns for complex bowel [...] of 3 Charges/Coding Visit Charges Inpatient E&M: 62445 Init Hosp L3 04/02/23 1706 <Electronically signed by Mathew Friend > Cosigner Signature (if applicable): CC: Dr. Alisa Mathew MD; Dr. Claudine Durán MD; Dr. Laine Veras MD~ Signed [facility] Work Phone: 1(695) 380-108502-12-2024 Procedure [facility] 04-02-2023 Procedure [facility]02-11-2024 Miscellaneous Notes* Telephone Encounter - Claudine Durán MD - 04/01/2023 4:36 PM EST See MyChart reply documented in this encounterK[facility]02-11-2024 Progress note Author Alisa [facility] April 01, 2023 12:08pm Note Date/Time April 01, 2023 6:46am [facility] Medical Records Department [address] [place] [address] Progress Note - Hospitalist 04/01/23 0642 MR#: [id number] Acct: [id number] Name: HAYDEE BUSTAMANTE Rep #:[id number] : 1945 77 From: Alisa Mathew MD PCP: Dr. Claudine Durán MD Status:AD M IN Location: [place] [address] Reason for Visit Reason for Visit: Diagnoses [...] 90.8 H, Lymph % (Auto) 3.0 L, Maury % (Auto) 5.0, Eos % (Auto) 0.1, [...] 88.5 H, Lymph % (Auto) 4.7 L, Maury % (Auto) 5.6, Eos % (Auto) 0.2, [...] 19:30 EST Reading Location ID and State: [employer] Tel , Service support , Chest X-Ray 03/31/23 18:32 IMPRESSION: No change from prior study. Electronically Signed: Michael Galarza MD at 19:29 EST Reading Location ID and State: [employer] Tel , Service support , Ankle X-Ray 03/31/23 22:10 IMPRESSION: Soft tissue swelling without obvious fracture. Electronically Signed: Michael Galarza MD at 23:54 EST Reading Location ID and State: [employer] Tel , Service support , Physical Exam Narrative Physical Examination: General: [...] PE),Recent diagnosis Histoplasmosis, recent 03/21/33 evaluation at [facility] with transfer to [facility] secondary to concerns for complex bowel [...] therapy with planned outpatient work-up, discharged from [facility] 03/25/23 with decline upon return to home, inability to safely care for self prompting presentation to the [facility] ED on 03/26/23 for SNF placement needs but improved and declined SNF placement again who now re-presents to the [facility] ED on 03/31/23 with history of [...] follow-up as previously arranged per Surgery team [facility]. #11. Rheumatoid arthritis: Patient outpatient on Humira, methotrexate and leucovorin however this has been continued to be held secondary to a recent hospitalization in [facility] with disseminated histoplasmosis and concern for bowel perforation/colitis, resume once allowed per infectious disease. #12. Valvular heart disease with aortic stenosis with recent diagnosis moderatepericardial effusion: Recent evaluation in [facility], no intervention but close observation for moderate [...] Code status. Charges/Coding Visit Charges Inpatient E&M: 98193 Subs Hosp L3 04/01/23 1208 <Electronically signed by Alisa Mathew MD> Cosigner Signature (if applicable): CC: ~ Signed [facility] Work Phone: 1([phone]) 816-125702-10-2024 History and physical note Author Laine Veras [facility] March 31, 2023 8:59pm Note Date/Time March 31, 2023 8:20pm [facility] Medical Records Department [address] [place] [address] H&P Exam - Hospitalist 03/31/232011 MR#: [id number] Acct: [id number] Name: HAYDEE BUSTAMANTE Rep #:[id number] : 1945 77 From: Laine Veras MD PCP: Dr. Claudine Durán MD Status:AD M IN Location: [facility] QTT627- 1 HPI - General General Date of Admission: 03/31/23 Date of Service: 03/31/23 Chief Complaint: BLE edema and weeping HPI Narrative HAYDEE BUSTAMANTE, is a 77-year-old female history of COPD, Severe . GERD. DVT and PEon Coumadin, histoplasmosis of the lung, RA who presented to [facility] ED 03/31/2023 with bilateral lower extremity edema. She was seen here 03/28/2023 with lower extremity edema. She was initially seen here 03/26/2023 for shortness of breath and inability to care for herself at home after a recent hospital stay at [facility] from which she was discharged on Cipro [...] is unsure if she's taking her coumadin [facility] Medical History (Updated 03/31/23 @ 20:42 [...] Q24H 03/19/23 [History Last Taken Unknown] vitamins A,C,B-fawp-urgpbq 2,148 mcg-113 mg-45 mg-17.4 mg tablet (PreserVision [...] 90.8 H, Lymph % (Auto) 3.0 L, Maury % (Auto) 5.0, Eos % (Auto) 0.1, [...] for bowel perf treated conservatively -Treated at [facility][1] -s/p cipro and flagyl, no present abd complaints # Disseminated histoplasmosis -Continue itraconazole twice daily -Patient to follow-up with a Dr. Hart in 3 months # Recent COVID-19 -Tested positive here end of February -No resp complaints #Hx COPD -Continue inhalers #Hx and mod pericardial effusion -Seen at [facility] and pt advised to f/u outpt [...] documentation, 78Minutes Charges/Coding Visit Charges Inpatient E&M: 86573 Init Hosp L3 03/31/232058 <Electronically signed by Laine Veras MD> Cosigner Signature (if applicable): CC: Dr. Claudine Durán MD; Dr. Laine Veras MD~ Signed [facility] Work Phone: 1(694) 825-380602-10-2024 Discharge summary Author Martín Cornejo [facility] March 31, 2023 8:00pm Note Date/Time March 31, 2023 5:48pm [facility] Medical Records Department [address] [place] [address] Emergency Department Summary 03/31/23 MR#: [id number] Acct: [id number] Name: HAYDEE BUSTAMANTE Rep #:[id number] : 1945 77 From: Martín Cornejo DO PCP: Dr. Claudine Durán MD Status:RE G ER Location: ED HPI <MEENU Leger - Last Filed: 03/31/23 19:55> History of Present Illness Chief Complaint: Edema Narrative Narrative: Patient is a 77-year-old female with a long history of lower leg edema, history of COPD, patient is on Coumadin, histoplasmosis, presenting to the [facility] for failure to thrive, worsening swelling to [...] to go to a facility for rehab. [facility] <MEENU Leger - Last Filed: 03/31/23 19:55> [facility] Medical History Colitis COPD (chronic obstructive [...] Q24H 03/19/23 [History Last Taken Unknown] vitamins A,C,O-ukkz-oberbn 2,148 mcg-113 mg-45 mg-17.4 mg tablet (PreserVision [...] Blood Pressure Mean 65 Pulse Ox 100 [facility] <MEENU Leger - Last Filed: 03/31/23 19:55> [facility] Lab Data Labs: Laboratory Results - last 24 hr 03/31/23 18:12 WBC 19.4 H RBC 2.87 L Hgb 8.3 L Hct 24.9 L MCV 86.8 MCH 28.9 MCHC 33.3 RDW Std Deviation 75.1 H RDW Coeff of Catarino 24.1 H Plt Count 95 L MPV 10.4 Immature Gran % (Auto) 1.000 H Neut % (Auto) 90.8 H Lymph % (Auto) 3.0 L Maury % (Auto) 5.0 Eos % (Auto) 0.1 [...] 19:30 EST Reading Location ID and State: [employer] Tel , Service support , Chest X-Ray [...] Cornejo, DO - Last Filed: 03/31/23 20:00> [facility] Narrative Medical decision making narrative: Patient appears [...] hospitalist. This patient was seen with a PA/LABEL CUTTER Individually assessed they patient including history and physical. I have reviewed everything on the chart that is availableand agree with the documentation provided by the PA/LABEL CUTTER including discussion about the assessment, treatment plan, [...] 90.8 H Lymph % (Auto) 3.0 L Maury % (Auto) 5.0 Eos % (Auto) 0.1 [...] failure to thrive Disposition Disposition: Acute Care [facility] What to do if you have Problems For any increased pain, shortness of breath, bleeding, nausea or vomiting, chestpain, or any unexpected problems, contact your Primary Care Provider. Call [facility] ([phone]) or report to the closest Emergency Room. Call 911 if necessary. 03/31/231999 <Electronically signed by Martín Cornejo DO> Cosigner Signature (if applicable): 03/31/231954 <Electronically signed by Frederick CORRIGAN> CC: Dr. Claudine Durán MD ~ Signed [facility] Work Phone: 1(490) 788-713702-10-2024 Discharge summary [facility] March 31, 2023 8:00pm Note Date/Time March 31, 2023 5:48pm [facility] Medical Records Department [address] [place] [address] Emergency Department Summary 03/31/23 MR#: [id number] Acct: [id number] Name: HAYDEE BUSTAMANTE Rep #:[id number] : 1945 77 From: Martín Cornejo DO PCP: Dr. Claudine Durán MD Status:RE G ER Location: ED HPI <MEENU Leger - Last Filed: 03/31/23 19:55> History of Present Illness Chief Complaint: Edema Narrative Narrative: Patient is a 77-year-old female with a long history of lower leg edema, history of COPD, patient is on Coumadin, histoplasmosis, presenting to the [facility] apartment for failure to thrive, worsening swelling [...] to go to a facility for rehab. [facility] <MEENU Leger - Last Filed: 03/31/23 19:55> [facility] Medical History Colitis COPD (chronic obstructive [...] Q24H 03/19/23 [History Last Taken Unknown] vitamins A,C,I-hwrj-dodous 2,148 mcg-113 mg-45 mg-17.4 mg tablet (PreserVision [...] Mean 65 Pulse Ox 100 MDM <Frederick FranksMEENU piedra - Last Filed: 03/31/23 19:55> MDM Lab Data Labs: Laboratory Results - last 24 hr 03/31/23 18:12 WBC 19.4 H RBC 2.87 L Hgb 8.3 L Hct 24.9 L MCV 86.8 MCH 28.9 MCHC 33.3 RDW Std Deviation 75.1 H RDW Coeff of Catarino 24.1 H Plt Count 95 L MPV 10.4 Immature Gran % (Auto) 1.000 H Neut % (Auto) 90.8 H Lymph % (Auto) 3.0 L Maury % (Auto) 5.0 Eos % (Auto) 0.1 [...] Cornejo, DO - Last Filed: 03/31/23 20:00> [facility] Narrative Medical decision making narrative: Patient appears [...] hospitalist. This patient was seen with a PA/LABEL CUTTER Individually assessed they patient including history and physical. I have reviewed everything on the chart that is availableand agree with the documentation provided by the PA/LABEL CUTTER including discussion about the assessment, treatment plan, [...] 90.8 H Lymph % (Auto) 3.0 L Maury % (Auto) 5.0 Eos % (Auto) 0.1 [...] No change from prior study. Electronically Signed: Michale Galarza MD at 19:29 EST , Discharge Plan Dx/Rx/DC Orders Clinical Impression: Leg edema, Cellulitis, Weakness, Adult failure to thrive Disposition Disposition: Acute Care [facility] What to do if you have Problems For any increased pain, shortness of breath, bleeding, nausea or vomiting, chestpain, or any unexpected problems, contact your Primary Care Provider. Call [facility] ([phone]) or report to the closest Emergency Room. Call 911 if necessary. 03/31/231999 <Electronically signed by Martín Cornejo DO> Cosigner Signature (if applicable): 03/31/231954 <Electronically signed by Frederick SORTOC> CC: Dr. Claudine Durán MD ~ Signed [facility] Work Phone: 1(929) 433-700302-07-2024 Discharge summary Author Etienne Thacker [facility] March 28, 2023 8:37pm Note Date/Time March 28, 2023 5 :11pm [facility] Medical Records Department [address] [place] [address] Emergency Department Summary 03/28/23 MR#: [id number] Acct: [id number] Name: HAYDEE BUSTAMANTE Rep #:[id number] : 1945 77 From: Etienne Thacker MD [...] Prior similar symptoms: Yes Recent Illness/Hospitalization: Yes PFSH PFSH Medical History Colitis COPD (chronic obstructive pulmonary [...] Q24H 03/19/23 [History Last Taken Unknown] vitamins A,C,H-zcfi-shyljo 2,148 mcg-113 mg-45 mg-17.4 mg tablet (PreserVision [...] [facility]. Her labs are [...] 80.2 H Lymph % (Auto) 7.4 L Maury % (Auto) 9.8 Eos % (Auto) 0.0 [...] Signed: Ken Christy MD at 18:09 EST , Chest x-ray, portable, single view interpreted [...] rhythm rate 81 no acute signs of KS or ischemia. No significant dysrhythmia. Discharge Plan [...] capsule 100 mg PO Q8H Hold Instructions: MD Ordered naproxen 500 mg tablet 500 mg [...] your Primary Care Provider. Call [facility] ([phone]) or report to the closest Emergency Room. Call 911 if necessary. 03/28/232036 <Electronically signed by Etienne Thacker MD> Cosigner Signature (if applicable): CC: Dr. Claudine Durán MD ~ Signed [facility] Work Phone: [phone]) 473-852002-05-2024 Discharge summary Author Martín Cornejo [facility] March 26, 2023 4:23pm Note Date/Time March 26, 2023 1 :02pm [facility] Medical Records Department [address] [place] [address] Emergency Department Summary 03/26/23 MR#: [id number] Acct: [id number] Name: HAYDEE BUSTAMANTE Rep #:[id number] : 1945 77 From: Martín Cornejo DO PCP: Dr. Claudine Durán MD Status:AD M ADAIR Location: [place] [id number] HPI History of Present Illness Chief Complaint: Shortness of Breath Narrative Narrative: 77-year-old female presenting with shortness of breath. She needs placement. She is unable to care for self at home. [facility] due to concern for bowel perforation which [...] So they can discharge her home from [facility]. Patient may need a TAVR in the future. She may need mitral valve repair.. Her creatinine was elevated while she was at [facility]. She was discharged home on Cipro and Flagyl. She will continue itraconazole twice daily. She is given Imodium for diarrhea. He has 4 more days of dexamethasone. She was to hold her HCTZ/irbesartan [facility] Medical History (Updated 03/26/23 @ 15:59 by [...] Q24H 03/19/23 [History Last Taken Unknown] vitamins A,C,G-tpqy-srhnib 2,148 mcg-113 mg-45 mg-17.4 mg tablet (PreserVision [...] 80.3 H Lymph % (Auto) 6.3 L Maury % (Auto) 9.6 Eos % (Auto) 0.0 [...] problems, contact your Primary Care Provider. Call [employer] [facility] ([phone]) or report to the closest Emergency Room. Call 911 if necessary. 03/26/23 1623 <Electronically signed by Martín Cornejo DO> Cosigner Signature (if applicable): CC: Dr. Claudine Durán MD ~ Signed [facility] Work Phone: 1(449) 516-288802-04-2024 NoteHNO ID: [id number] Author: ARMEN FERNANDEZ RN Service: Nursing Author Type: Registered Nurse Type: Nursing Progress Note Filed: 03/25/2023 08:58 Note Text: Sepsis alert, sound paged, vitals stable, pt stable, waitng for call-back from sound.[facility]02-03-2024 NoteHNO ID: [id number] Author: SHARAN RIVAS MD Service: Hospital Medicine [...] (SPORANOX) 200 mg ORAL BID phenol 1 Melbourne (CHLORASEPTIC) 1 [place] MUCOUS MEMBRANE (TOPICAL MOUTH AND THROAT) q [...] was found to be COVID-19 positive in [facility]. Imaging showed intraperitoneal air and pneumatosis intestinalis and patient was transferred to [facility]. Pulmonology was consulted and patient was started on remdesivir and Decadron for COVID-19. Also started on itraconazole, Cipro and Flagyl. Surgery was involved with no surgical plans. # Pneumatosis intestinalis and pneumoper (more content not included)...[facility]02-03-2024 NoteHNO ID: [id number] Author: MAGAN VILLAFUERTE DO Service: Pulmonary Disease [...] of disseminated histoplasmosis. She is followed in [place], [place]. She has a history of previous [...] She presented to the emergency room at [facility] after a vigorous coughing episode and coughing [...] (SPORANOX) 200 mg ORAL BID phenol 1 Melbourne (CHLORASEPTIC) 1 [place] MUCOUS MEMBRANE (TOPICAL MOUTH AND THROAT) q [...] Supple, no adenopathy; thyroi (more content not included)...[facility]02-02-2024 Miscellaneous Notes* Telephone Encounter - Rachelle Leonard APRN.SUSTAINABILITY CONSULTANT - 03/23/2023 5:16 PM EST Please schedule patient to follow with Dr. Hart in 2 months. Thank you documented in this encounterK[facility]24 NoteHNO ID: [id number] Author: AMERICA RODRIGUEZ RN Service: Care Management Author Type: Registered Nurse Type: Care Mgt Progress Note Filed: 03/23/2023 14:44 Note Text: CARE MANAGEMENT PROGRESS NOTE SERVICE DATE: 03/23/2023 SERVICE TIME: 12:22 PM LOS: 4 days Post-Acute Discharge Planning Patient Goal(s): Be able to go home, General wellness Clayton of Choice Explained: Clayton of Choice Given: No Reason Not Given: [...] 23, 2023 TIME: 2:37 PM PAGER/CONTACT #: [phone] 03-[facility]-2023 NoteHNO ID: [id number] Author: MAGAN VILLAFUERTE DO Service: Pulmonary Disease [...] of disseminated histoplasmosis. She is followed in [place], [place]. She has a history of previous [...] She presented to the emergency room at [facility] after a vigorous coughing episode and coughing [...] and pelvis 03/19/2023 Abnorma (more content not included)...[facility]02-02-2024 NoteHNO ID: [id number] Author: SHARAN RIVAS MD Service: Hospital Medicine [...] (SPORANOX) 200 mg ORAL BID phenol 1 Melbourne (CHLORASEPTIC) 1 [place] MUCOUS MEMBRANE (TOPICAL MOUTH AND THROAT) q [...] histoplasmosis, and VTE on (more content not included)...[facility]02-01-2024 NoteHNO ID: [id number] Author: GENO HART MD Service: Infectious Disease [...] home -Patient can call my office at [phone] to get an appointment for about 3 [...] for recurrent lower extremity DVT, presented to [facility] 03/19/2023 for hemoptysis, going to the [facility] ED but then sent here due to [...] be COVID-positive. Interestingly a CAT scan at [facility] found pneumatosis intestinalis and intraperitoneal free air comp (more content not included)...[facility]02-01-2024 NoteHNO ID: [id number] Author: MAGAN VILLAFUERTE DO Service: Pulmonary Disease [...] of disseminated histoplasmosis. She is followed in [place], [place]. She has a history of previous [...] She presented to the emergency room at [facility] after a vigorous coughing episode and coughing [...] Positive PCR for COVID-19 supposedly reported from [facility]. Chest and abdomen/pelvis reviewed CTA chest 03/19/2023 No pulmonary embolism Prominent reticular no (more content not included)...[facility]02-01-2024 NoteHNO ID: [id number] Author: YAN PEREZ DO Service: General Surgery [...] 21.43 kg/m? Yan Perez DO 03/22/2023 1:52 PM][facility]02-01-2024 NoteHNO ID: [id number] Author: JOSE LUIS CRISTOBAL DO Service: General [...] if in ICU or [phone] if on RNF.[facility]02-01-2024 NoteHNO ID: [id number] Author: SHARAN RIVAS MD Service: Hospital Medicine [...] (SPORANOX) 200 mg ORAL BID phenol 1 Melbourne (CHLORASEPTIC) 1 [place] MUCOUS MEMBRANE (TOPICAL MOUTH AND THROAT) q [...] and plan: Haydee Weber (more content not included)...[facility]02-01-2024 NoteHNO ID: [id number] Author: PAMELA HALL MD Service: General Surgery Author Type: Physician Type: Progress Notes Filed: 04/25/2023 15:56 Note Text: Emergency General Surgery Progress Note SERVICE DATE: March 22, 2023 Emergency General Surgery Service Pager: For questions or concerns Mon-Fri 6a-5p please page [phone]. After 5pm and on Weekends and Holidays, please page [phone] if in ICU or [phone] if on RNF. SUBJECTIVE: Patient denies worsening [...] kg/m? O2 Therapy: Room Air IANDO: Date 03/21/23 07 - 03/22/23 0659 03/22/23 07 - 03/23/23 0659 Shift 0293-2821 0787-2988 2059-0679 24 Hour Total 9889-5438 5580-1043 5890-7669 24 Hour Total INTAKE IV 300 300 [...] ORAL DIRECTED PRN remdesivir in NaCl 0.9% Vial-Mate/ADD-Peru 100 mg 275 mL 100 mg INTRAVENOUS [...] (SPORANOX) 200 mg ORAL TID phenol 1 Melbourne (CHLORASEPTIC) 1 [place] MUCOUS MEMBRANE (TOPICAL MOUTH AND THROAT) q [...] as above ABDOMEN: Soft, non-tender, non-distended EXTREMITIES: ZAPTAA, No deformities, No edema SKIN: Skin color, [...] (HCC) 03/07/2015 Overview Note: Dr. Hurley ([facility]) Assessment: 77 year old female with PMH significant for RA (Humira), HTN, h/o disseminated Histoplasmosis, bronchiectasis, VTE (on coumadin), pulmonary nodules, and presenting to the ED today after an episode of hemoptysis at home. CTAP had an incidental finding of a small amount of intraperitoneal air and pneumatosis in the colon for which surgery was consulted. Hospital Cou (more content not included)...[facility] 03-21-2023 NoteHNO ID: [id number] Author: GENO HART MD Service: Infectious Disease [...] for recurrent lower extremity DVT, presented to [facility] 03/19/2023 for hemoptysis, going to the [facility] ED but then sent here due to [...] be COVID-positive. Interestingly a CAT scan at [facility] found pneumatosis intestinalis and intraperitoneal free air [...] -- 03/21/23 1000 remdesivir in NaCl 0.9% Vial-Mate/ADD-Peru 100 mg 275 mL 100 mg, INTRAVENOUS, EVERY 24 HOURS See Hyperspace for full Linked Orders Report. 03/23/23 0959 03/20/23 1300 itraconazole 200 mg oral liquid (SPORANOX) 200 mg, ORAL, 3 TIMES DAILY 03/23/23 1259 03/19/23 2000 cipro (more content not included)...[facility] 03-21-2023 NoteHNO ID: [id number] Author: PAMELA HALL MD Service: General Surgery Author Type: Physician Type: Progress Notes Filed: 03/22/2023 07:10 Note Text: Emergency General Surgery Progress Note SERVICE DATE: March 21, 2023 Emergency General Surgery Service Pager: For questions or concerns Mon-Sun 6a-5p please page [phone]. After 5pm and [...] 0659 03/21/23 07 - 03/22/23 0659 Shift 6081-7236 2312-2890 1386-7755 24 Hour Total 9741-7723 6747-3494 7132-2531 24 Hour Total INTAKE IV 1275 1275 [...] Dose Route Frequency remdesivir in NaCl 0.9% Vial-Mate/ADD-Peru 100 mg 275 mL 100 mg INTRAVENOUS [...] (SPORANOX) 200 mg ORAL TID phenol 1 Melbourne (CHLORASEPTIC) 1 [place] MUCOUS MEMBRANE (TOPICAL MOUTH AND THROAT) q [...] (HCC) 03/07/2015 Overview Note: Dr. Hurley ([facility]) Assessment: 77 year old female with PMH significant for RA (Humira), HTN, h/o disseminated Histoplasmosis, bronchiectasis, VTE (on coumadin), pulmonary nodules, and presenting to the ED today after an episode of hemoptysis at home. CTAP had an incidental finding of a small amount of intraperitoneal air and pneumatosis in the colon. INR on arrival to [facility] was 9. She given Vitamin K and transferred here. Hospital Course/Operations/Procedures: * No surgery found * Plan: Pneumatosis intestinalis and intraperitoneal free air - labs and imaging reviewed - Small amount of air on (more content not included)...[facility]01-31-2024 NoteHNO ID: [id number] Author: MAGAN VILLAFUERTE DO Service: Pulmonary Disease [...] of disseminated histoplasmosis. She is followed in [place], [place]. She has a history of previous [...] She presented to the emergency room at [facility] after a vigorous coughing episode and coughing [...] Positive PCR for COVID-19 supposedly reported from [facility]. Chest and abdomen/pelvis reviewed CTA chest [...] Right atrial cavity normal (more content not included)...[facility]01-30-2024 NoteHNO ID: [id number] Author: ELÍAS QUINN RN Service: Care Management Author Type: Registered Nurse Type: Care Mgt Initial Assessment Filed: 03/20/2023 16:23 Note Text: CARE MANAGEMENT: ASSESSMENT AND DISCHARGE PLAN SERVICE DATE: March 20, 2023 SERVICE TIME: 4:19 PM PCP: Claudine Durán MD Primary Contact: Extended Emergency Contact Information Primary Emergency Contact: Suzie Araiza ([facility]) Address: [facility] [address] [place] [address] [facility] Relation: Friend Secondary Emergency Contact: Padmini Chang Address: [address] [place] [address] [facility] Mobile Relation: Friend Admission Status: Inpatient Insurance Provider: [employer] PPO Discharge Planning requested by: Per Department Practice Potential Transition Plans Home Advance Directives Current Advance Directive: None Press Tender Attempted to Assist with AD Completion: Yes [...] wellness, Less pain, Wean off of O2 Clayton of Choice Explained: Clayton of Choice Given: No Reason Not Given: [...] 20, 2023 TIME: 4:19 PM CONTACT #: [phone]24 Note HNO ID: [id number] Author: MAGAN VILLAFUERTE DO Service: Pulmonary Disease [...] of disseminated histoplasmosis. She is followed in [place], [place]. She has a history of previous [...] She presented to the emergency room at [facility] after a vigorous coughing episode and coughing [...] Positive PCR for COVID-19 supposedly reported from [facility]. Chest and abdomen/pelvis reviewed CTA chest [...] changes consistent with d (more content not included)...[facility]01-30-2024 NoteHNO ID: [id number] Author: PAMELA HALL MD Service: General Surgery Author Type: Physician Type: Progress Notes Filed: 03/20/2023 14:33 Note Text: Emergency General Surgery Progress Note SERVICE DATE: March 20, 2023 Emergency General Surgery Service Pager: For questions or concerns Mon-Fri 6a-5p please page [phone]. After 5pm and on Weekends and Holidays, please page [phone] if in ICU or [phone] if on [...] Date 03/19/23 07 - 03/20/23 0659 03/20/23 0700 - 03/21/23 0659 Shift 3601-5682 0110-3931 7733-5424 24 Hour Total 8779-9700 3599-6601 9389-4929 24 Hour Total INTAKE IV 300 100 [...] in the colon. INR on arrival to [facility] was 9. She given Vitamin K and [...] chemical anticoagulation - INR on arrival to [facility] was 9. She given Vitamin K prior to transfer - continue serial abdominal exams - notify general surgery of any acute changes in clinical status D/w Dr. Hall SIGNATURE: Christ Camarena MD PATIENT NAME: Haydee Bustamante DATE: March 20, 2023 TIME: 921 Pager: [phone] Emergency General Surgery Service Pager: For questions or concerns Mon-Fri 6a-5p please page [phone]. After 5pm and on Weekends and Holidays, please page [phone] if in ICU or [phone] if on RNF. Emergency General Surgery (EGS) Staff Addendum: See admit H/P for full attestation following today's patient care visit. I evaluated the patient and personally participated in the jim components. I agree with the resident's findi (more content not included)...[facility]01-29-2024 Discharge summary Author Bob Elias [facility] March 19, 2023 5:11pm Note Date/Time March 19, 2023 1 0:38am [facility] Medical Records Department [address] [place] [address] Emergency Department Summary 03/19/23 MR#: [id number] Acct: [id number] Name: HAYDEE BUSTAMANTE Rep #:[id number] : 1945 77 From: Bob Amaro PCP: [...] states she has a history of histoplasmosis. [facility] Medical History (Updated 03/19/23 @ 15:03 by [...] (Updated 03/19/23 @ 11:[address] Bob Elias DO) Hx of foot surgery Social History Smoking [...] (Auto) 68.8 Lymph % (Auto) 15.1 L Maury % (Auto) 10.9 H Eos % (Auto) [...] bank resources here. Patient requested transfer to [facility]. Transfer line was contacted. Case was discussed with Dr. Lugo at [facility]. He accepted the patient and requested patient be transferred to the emergency department there. Case was discussed with emergency department physician. He accepted the patient to be transferred there. Patient was ordered type and screen. Patient was also ordered a unit of fresh frozen plasma. Patient will be transferred to [facility]. Patient and family understood and were agreeable with the plan. All questions were answered. Critical Care Time Critical Care Time: Yes Critical care time (excluding procedures): 30-74 minutes (38), Including time spent:, Discussing w/Patient &/or Family/Customer Service Sales Associate, Discussing w/Consultants, Arranging Admission or Transfer [...] Disposition Disposition: Acute Care Hospital Discharge Location: [facility] What to do if you have Problems For any increased pain, shortness of breath, bleeding, nausea or vomiting, chestpain, or any unexpected problems, contact your Primary Care Provider. Call [facility] ([phone]) or report to the closest Emergency Room. Call 911 if necessary. 03/19/23 1711 <Electronically signed by Bob Elias DO> Cosigner Signature (if applicable): CC: Dr. Claudine Durán MD ~ Signed [facility] Work Phone: 1(494) 216-320212-20-2023 History of Present illness Narrative* Kathleen Alegria RT(R) - 02/07/2023 11:00 AM EST Radiology [...] 07, 2023 11:06 AM documented in [facility] History of Present illness Narrative* Adri Zaragoza APRN.SUSTAINABILITY CONSULTANT - 02/07/2023 10:52 AM EST Subjective HPI [...] multiple sites with positive rheumatoid factor ([facility]) 03/07/2015 Dr. Hurley ([facility]) Unspecified hemorrhoids without mention of complication [...] SPINE FUSN,POST INTERBODY 2011 Dr. Armando at [facility]. Diskectomy and laminectomy PAST SURGICAL HISTORY [...] fluticasone (FLONASE) 50 mcg/actuation nasal spray^Use 1 [place] in each nostril once daily.^Disp: 3 Each^Rfl: [address] (PROTONIX) 40 mg tablet^Take 1 tablet by mouth once daily.^Disp: 90 tablet^Rfl: 3 albuterol HFA (PROAIR HFA) 90 mcg/actuation inhaler^Inhale 2 Puffs as instructed every 4 hours as needed.^Disp: 1 Each^Rfl: 2 vit A,C,A-Vads-Tfopsy (OCUVITE PRESERVISION) 2,148 mcg-113 mg-45 mg-17.4mg tab^Take [...] A/B & RSV NAAT, ROUTINE Adri Zaragoza APRN.SUSTAINABILITY CONSULTANT documented in this encounterK[facility]12-15-2023 History of Present illness Narrative* Melissa Means RN - 02/02/2023 3:19 PM EST pcp agrees with information * Melissa Means RN - 02/02/2023 9:47 AM EST patient had inr completed at [facility] patients inr is 2.1 (patients inr range [...] for follow up INR. documented in this encounterK[facility]12-06-2023 Miscellaneous Notes* Telephone Encounter - Magalie Ngo LPN - 01/24/2023 9:02 AM EST GEREMIAS 07/20/22 Patient phones requesting refills as follows: Requested Prescriptions Pending Prescriptions Disp Refills budesonide-formoterol (SYMBICORT) 160-4.5 mcg/actuation inhaler [Pharmacy Med Name: BUDESONIDE/FORMINHALER 10.2GM 160/4.5MCG] 30.6 g 3 Sig: USE 2 INHALATIONS TWICE A DAY INSTRUCTED Please review and advise. Magalie Ngo LPN documented in this encounterKet[facility]11-29-2023 History of Present illness Narrative* Melissa Means RN - 01/17/2023 3:02 PM EST pcp agrees with information * Melissa Means RN - 01/17/2023 1:55 PM EST patient had inr completed at [facility] patients inr is 1.9 (patients inr range [...] reading since dose change documented in this encounterK[facility]11-22-2023 History of Present illness Narrative* Melissa Means RN - 01/10/2023 3:47 PM EST pcp agrees with information PATIENT NOTIFIED OF INFORMATION * Melissa Means RN - 01/10/2023 1:38 PM EST patient had inr completed at [facility] patients inr is 2.9 (patients inr range [...] and advise on recommendation documented in this encounterKettering [facility]11-16-2023 History of Present illness Narrative* Yesenia Weinstein LPN - 01/04/2023 4:24 PM EST Patient notified of providers message and verbalized understanding. * Jimbo Swanson APRN.CNS - 01/04/2023 3:29 PM EST OK to change coumadin to 7.5mg Tues,Sat,Sun and 5mg all other days and recheck INR in 1 week * Melissa Means RN - 01/04/2023 11:34 AM EST patient had inr completed at [facility] patients inr is 2.6 (patients inr range [...] and advise on recommendation documented in this encounterK[facility]11-16-2023 Instructions* Patient Instructions* Jimbo Swanson APRN.TYLOR - 01/04/2023 10:50 AM EST It appears that you have better coverage for the RSV vaccine at your local pharmacy. documented in this encounterKettering Health [facility]11-16-2023 History of Present illness Narrative* Jimbo Swanson [...] and COPD. HPI excerpted from previous visits: P D Driver: Florence Collins MD, last seen July 20, 2022. Seen for follow-up of lung nodules bronchiectasis. Noted are a likely etiology for underlying bronchiectasis. Noted new nodularity of lung,likely represents inflammatory nodules. Will need follow-up CT. No this may improve with bronchopulmonary hygiene. Spiriva and intermittent albuterol has helped with cough. Stable. Exceptional Needs Teacher: William Messina BAV, aortic stenosis , last seen in cardiology August 29, 2022 by SANTY Love. Continued on current treatments unchanged. Follow-up echo advised, not yet scheduled.. 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 Continues with methotrexate, Humira.seen by Dr. [...] Occasional bruising. [facility] coumadin clinic. Referred by food and beverage server to see orthopedic physician for her hip. [...] fluticasone (FLONASE) 50 mcg/actuation nasal spray^Use 1 [place] in each nostril once daily.^Disp: 3 Each^Rfl: [address] (PROTONIX) 40 mg tablet^Take 1 tablet by mouth once daily.^Disp: 90 tablet^Rfl: 3 albuterol HFA (PROAIR HFA) 90 mcg/actuation inhaler^Inhale 2 Puffs as instructed every 4 hours as needed.^Disp: 1 Each^Rfl: 2 vit A,C,Z-Cpuo-Dwqnob (OCUVITE PRESERVISION) 2,148 mcg-113 mg-45 mg-17.4mg tab^Take [...] rheumatoid factor (HCC) 03/07/2015 Dr. Hurley ([facility]) Unspecified hemorrhoids without mention of complication [...] to get at pharmacy discussed risks - [employer] COVID-19 VACCINE (2022- SEASON) AGE 12+ YR in office today Jimbo Swanson APRN.CNS Medical Decision Making: Problems: Low: 2+ self-limited or minor problems Risk: Moderate: Drug management Medical Decision Making Level: 3 - Low documented in this encounterKettering Health [facility]11-01-2023 Miscellaneous Notes* Telephone Encounter - Maritza Preston [...] medication: Not applicable Please advise. Thank you. Mairtza Preston LPN. documented in this encounterKettering Health [facility]ble10-26-2023 History of Present illness Narrative* Jimbo Swanson APRN.CNS - 12/14/2022 12:11 PM EDT Continue with Coumadin dose unchanged and check INR in 2 or 3 weeks * Melissa Means RN - 12/14/2022 10:25 AM EDT patient had inr completed at [facility] patients inr is 2.2 (patients inr range [...] patient declines blood draw documented in this encounterKettering Health [facility]ble10-19-2023 History of Present illness Narrative* Yesenia Weinstein [...] AM EDT patient had inr completed at [facility] patients inr is 2.5 (patients inr [...] Recommend: patient change coumadin dose to 5mg Mon,Wed,Sun and 7.5mg all other days and recheck inrin 1 week patient has been scheduled for a 1 week follow up inr on 12/14/22 please review and advise on recommendation documented in this encounterKettering Health [facility]ble10-02-2023 Miscellaneous Notes* Letter - Coordinator, Mammography - 11/20/2022 9:52 AM EDT November 20, 2022 PID: [id number] Haydee Bustamante [address] [place] [id number] Dear Ms. Bustamante, We are pleased to [...] report will [facility] part of your permanent medical record and are available for your continuing care. Thank you for allowing us to help in meeting your health care needs. Sincerely, Dr. Basurto Interpreting Radiologist [facility] (Normal over 40) documented in this encounterKettering Health Preble09-29-2023 History of Present illness Narrative* Aide Gupta, RT(R) - 11/17/2022 9:30 AM EDT Radiology [...] November 17, 2022 9:00 AM * Shahnaz Ferguosn Mammo Tech - 11/17/2022 9:30 AM EDT [...] 17, 2022 9:00 AM documented in this encounterKettering Health [facility]ble09-29-2023 Miscellaneous Notes* Result Encounter Note - Jimbo Swanson APRN.CNS - 11/17/2022 9:30 AM EDT Negative, 1 year screening follow-up documented in this encounterKettering Health [facility]ble09-21-2023 History of Present illness Narrative* Jimbo Swanson APRN.CNS - 11/09/2022 4:41 PM EDT Continue Coumadin dose unchanged and check INR in 4 weeks * Melissa Means RN - 11/09/2022 10:27 AM EDT patient had inr completed at [facility] patients inr is 1.9 (patients inr range [...] follow u p INR. documented in this encounterKettering Health [facility]ble09-21-2023 Miscellaneous Notes* Telephone Encounter - Melissa Means RN - 11/09/2022 10:29 AM EDT patients orders for coumadin clinic inr's has at this time. new order has been pended for approval if possible so that patient can continue to get inr's completed thru the coumadin clinic. coumadin clinic nurse only needs called if order can not be approved. documented in this encounterKettering Health Preble09-21-2023 History of Present illness Narrative* Ron Veras MD - 11/09/2022 8:50 AM EDT Ron Veras MD Department of Orthopaedics Orthopaedics [address] [facility] [address] Dept: [phone] Dept November 09, 2022 CHIEF COMPLAINT: New [...] acute pathology. 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 Inspector Precision: PSCB Transcribe Date/Time: Dec 31 2021 11:55A [...] (HCC) COPD (chronic obstructive pulmonary disease) ([facility]) Disseminated histoplasmosis Colitis, immunosuppression, 01/2018. Diverticulosis of colon (without mention of hemorrhage) Diverticulosis DVT, recurrent, lower extremity, acute ([facility]) 12/10/2014 Esophageal reflux Hiatal hernia 02/25/2018 Hypertension Lung nodule Personal history of unspecified urinary disorder Rheumatoid arthritis involving multiple sites with positive rheumatoid factor ([facility]) 03/07/2015 Dr. Hurley ([facility]) Unspecified hemorrhoids without mention of complication [...] SPINE FUSN,POST INTERBODY 2011 Dr. Armando at [facility]. Diskectomy and laminectomy PAST SURGICAL HISTORY [...] (FLONASE) 50 mcg/actuation nasal spray Use 1 [place] in each nostril once daily. pantoprazole DR (PROTONIX) 40 mg tablet Take 1 tablet by mouth once daily. albuterol HFA (PROAIR HFA) 90 mcg/actuation inhaler Inhale 2 Puffs as instructed every 4 hours as needed. vit A,C,G-Qmmx-Eroeqr (OCUVITE PRESERVISION) 2,148 mcg-113 mg-45 mg-17.4mg tab [...] physician via US mail. Twyla Cuevas [address] [id number] Claudine Durán MD [address] [id number] Ron Veras MD documented in this encounterKettering Health [facility]ble09-14-2023 Miscellaneous Notes* Telephone Encounter - Isabella Zacarias RN - 11/02/2022 10:12 AM EDT Patient calls back and states that [facility] does have prescription for coumadin. Isabella Zacarias RN * Telephone Encounter - Melanie Mcgregor RN - 11/01/2022 5:24 PM EDT Patient calling to say [facility] [place] tells her they did not receive script for short fill Warfarin. Patient asking if it can be sent again. Pended. Melanie Mcgregor, RN documented in this encounterKettering Health [facility]ble09-12-2023 Miscellaneous Notes* Telephone Encounter - Charissa Perez LPN - 10/31/2022 12:10 PM EDT Last OV: 10/27/22 with TYLOR Yi. Pt reports she will be out of medication on and [facility] [employer] advised her she had no refills even [...] patient. Charissa Perez LPN documented in this encounterKettering Health [facility]ble09-12-2023 Miscellaneous Notes* Telephone Encounter - Ashly Shay RN - 10/31/2022 8:02 AM EDT Patient calling with request for medication/refill: Patient/caregiver requesting refill of Warfarinbe called to [facility] pharmacy at online.. Patient denies any new or worsening symptoms of which a provider is not aware: Yes. Patient just discovered she will run out of the below rx on . Is requesting a short term supply be sent to [facility] in [place] and the remainder sent to [facility]. Has been taking medication as ordered. warfarin (COUMADIN) 5 mg tablet 30 tablet 3 07/11/2022 Sig: Take 7.5 mg Tu, Anabel,Fri, Sat, Sun; and 5 mg on Sunday and Sunday Sent to pharmacy as: warfarin (COUMADIN) 5 mg tablet documented in this encounterKettering Health [facility]09-08-2023 History of Present illness Narrative* Jimbo Swanson, CONNIE.SALES INCENTIVE ANALYST - 10/27/2022 9:20 AM EDT SUBJECTIVE: BP [...] bicuspid valve, lung nodule bronchiectasis and COPD. P D Driver: Florence Collins MD, last seen July 20, 2022. Seen for follow-up of lung nodules bronchiectasis. Noted are a likely etiology for underlying bronchiectasis. Noted new nodularity of lung,likely represents inflammatory nodules. Will need follow-up CT. No this may improve with bronchopulmonary hygiene. Spiriva and intermittent albuterol has helped with cough. Stable. Exceptional Needs Teacher: William Messina BAV, aortic stenosis , last seen in cardiology August 29, 2022 by SANTY Love. Continued on current treatments unchanged. Follow-up echo advised, not yet scheduled.. 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 Continues with methotrexate, Humira.seen by Dr. Jane Montoya 06/26/2022 for RA, osteoporosis, degenerative disc disease, arthritis of foot, osteoarthritis of bilateral hands. DEXA scan completed, showed osteoporosis. All yes trying recommended restart of Reclast. Weight: stable Exercise: walking miles most days, feeling well with this . Notes up to 10mi/day when participatingin theUppidy production Seen by PCP March 13, 2022. [...] pain, currently taking gabapentin. Plans to see vehicle care specialist, referred by food and beverage server. Referred by food and beverage server to see orthopedic physician for her hip. [...] fluticasone (FLONASE) 50 mcg/actuation nasal spray^Use 1 [place] in each nostril once daily.^Disp: 3 Each^Rfl: [...] hours as needed.^Disp: 1 Each^Rfl: 2 vit A,C,C-Jwhi-Iozrxd (OCUVITE PRESERVISION) 2,148 mcg-113 mg-45 mg-17.4mg tab^Take [...] (HCC) COPD (chronic obstructive pulmonary disease) ([facility]) Disseminated histoplasmosis Colitis, immunosuppression, 01/2018. Diverticulosis of colon (without mention of hemorrhage) Diverticulosis DVT, recurrent, lower extremity, acute ([facility]) 12/10/2014 Esophageal reflux Hiatal hernia 02/25/2018 Hypertension Lung nodule Personal history of unspecified urinary disorder Rheumatoid arthritis involving multiple sites with positive rheumatoid factor ([facility]) 03/07/2015 Dr. Hurley ([facility]) Unspecified hemorrhoids without mention of complication [...] ICD9: 724.3, ICD10: M54.41 Plans to see vehicle care specialist 6. Hip pain, acute, left - ICD9: 719.45, ICD10: M25.552 7. Rheumatoid arthritis involving multiple sites with positive rheumatoid factor (HCC) - ICD9: 714.0, ICD10: M05.79 Followed by [facility] 8. Bronchiectasis without complication (HCC) [...] Level: 4 - Moderate documented in this encounterKettering [facility]09-08-2023 Instructions* Patient Instructions* Jimbo Swanson APRN.CNS - 10/27/2022 9:01 AM EDT Consider getting new COVID booster when it becomes available either in clinic or at pharmacy. documented in this encounterKettering Health [facility]ble09-07-2023 History of Present illness Narrative* Jimbo Swanson APRN.CNS - 10/26/2022 4:38 PM EDT Continue with Coumadin dose unchanged and check INR in 2 weeks * Melissa Means RN - 10/26/2022 12:14 PM EDT patient had inr completed at [facility] patients inr is 1.7 (patients inr range [...] reading since dose change documented in this encounterKettering Health [facility]ble08-24-2023 History of Present illness Narrative* Maritza Preston LPN - 10/12/2022 2:47 PM EDT Left message to call & speak to nurse re: Coumadin. Maritza Preston LPN * Jimbo Swanson APRN.CNS - 10/12/2022 2:31 PM EDT Okay to change coumadin dose to 5mg Mon,Wed and 7.5mg all other days and recheck inr in 2 weeks * Melissa Means RN - 10/12/2022 12:34 PM EDT patient had inr completed at [facility] patients inr is 1.5 (patients inr range [...] and advise on recommendation documented in this encounterKettering Health [facility]ble08-21-2023 Miscellaneous Notes* Telephone Encounter - Claudine Durán [...] Thank you. CARMEN Viveros documented in this encounterKettering Health Preble08-07-2023 Miscellaneous Notes* Telephone Encounter - Will Babin [...] recommend that she follow up with Dr. Siddharth in 6 months with repeat echo in 1 year. Thanks ~ JJ documented in this encounterKettering Health [facility]ble07-28-2023 Miscellaneous Notes* Telephone Encounter - Muna Porter [...] dose and pt findings. documented in this encounterKettering Health [facility]ble07-20-2023 History of Present illness Narrative* Melissa Means RN - 09/07/2022 4:07 PM EDT PATIENT NOTIFIED OF INFORMATION * Jimbo Swanson APRN.CNS - 09/07/2022 3:49 PM EDT Okay for 5 mg Coumadin Sunday and 7.5 mg all other days. Recheck INR in 1 week * Melissa Means RN - 09/07/2022 11:59 AM EDT patient had inr completed at [facility] patients inr is 2.4 (patients inr range [...] weeks patient has been scheduled at that [facility] for an inr follow up 09/14/22 (order is already in place) please review and advise on recommendation documented in this encounterKettering Health [facility]ble07-11-2023 Instructions* Patient Instructions* Rachelle Schulte APRN.CNP - [...] up in 6 months documented in this encounterKettering Health Preble07-11-2023 History of Present illness Narrative* Rachelle Schulte APRN.CNP - 08/29/2022 9:30 AM EDT Images from the original note were not included. [facility] [facility] Department of Cardiovascular Medicine SECTION [...] which included preparing to see the patient, [id number] patient care, completing clinical documentation, performing a [...] prior to the follow up. Rachelle Schulte APRN.[facility] Cardiology Nurse Practitioner Section of [facility] Cardiology [facility] Dept of Cardiovascular Medicine [facility] [place] [address] [place] [address] Office Office August 29, 2022 7:46 AM This note was partially generated using [employer] voice recognition system and may contain errors [...] nodule with faint calcifications suggesting calcified granuloma. Inspector Precision: KRYSTAL Transcribe Date/Time: Jul 24 2022 10:02A Dictated [...] Bone marrow involvement with histoplasmosis Bronchiectasis ([facility]) COPD (chronic obstructive pulmonary disease) ([facility]) Disseminated histoplasmosis Colitis, immunosuppression, 01/2018. Diverticulosis of colon (without mention of hemorrhage) Diverticulosis DVT, recurrent, lower extremity, acute ([facility]) 12/10/2014 Esophageal reflux Hiatal hernia 02/25/2018 Hypertension Lung nodule Personal history of unspecified urinary disorder Rheumatoid arthritis involving multiple sites with positive rheumatoid factor ([facility]) 03/07/2015 Dr. Hurley ([facility]) Unspecified hemorrhoids without mention of complication [...] and ROS obtained by others. Rachelle Schulte APRN.SUSTAINABILITY CONSULTANT CURRENT MEDICATIONS: Current Outpatient Medications Medication Sig budesonide-formoterol (SYMBICORT) 160-4.5 mcg/actuation inhaler Inhale 2 Puffs as instructed twice daily. fluticasone (FLONASE) 50 mcg/actuation nasal spray Use 1 [place] in each nostril once daily. warfarin (COUMADIN) 5 mg tablet Take 7.5 mg , Sun,Sun, Sun, Sun; and 5 mg on Sunday and Sunday pantoprazole DR (PROTONIX) 40 mg tablet Take 1 tablet by mouth once daily. albuterol HFA (PROAIR HFA) 90 mcg/actuation inhaler Inhale 2 Puffs as instructed every 4 hours as needed. vit A,C,S-Lprn-Rfzpfy (OCUVITE PRESERVISION) 2,148 mcg-113 mg-45 mg-17.4mg tab [...] mL INTRAVENOUS DIRECTED PRN documented in this encounterKettering Health Preble06-27-2023 Miscellaneous Notes* Telephone Encounter - Magalie Ngo LPN - 08/15/2022 10:20 AM EDT GEREMIAS 07/20/22 Patient phones requesting refills as follows: Requested Prescriptions Pending Prescriptions Disp Refills budesonide-formoterol (SYMBICORT) 160-4.5 mcg/actuation inhaler Sig: Inhale as instructed twice daily. Please review and advise. Magalie Ngo LPN documented in this encounterKettering Health Preble06-25-2023 Miscellaneous Notes* Telephone Encounter - Claudine Durán [...] now. Bakari Catalan LPN documented in this encounterKettering Health Preble06-01-2023 History of Present illness Narrative* Florence Collins MD - 07/20/2022 9:30 AM EDT Images from the original note were not included. . Respiratory [place] Note Patient name: Haydee Bustamante PCP: Claudine Durán MD CC: Follow-up chest CT HPI: Haydee Bustamante 77 year old female former 10 pack year smoker with PMH significant for RA (MTX, Humira), HTN, h/o disseminated Histoplasmosis, bronchiectasis, , VTE, pulmonary nodules, who presents for follow-up. Current inhaled therapy with Symbicort and Spiriva. At [facility] with al, she was a newpatient to al formerly followed by Dr. Andujar. [...] DATE OF EXAM: Jul 20 2022 9:22AM [facility] 0541 - CT CHEST WO IVCON [...] abdomen within the limits of noncontrast technique.. Crown Presser (topogram) images: IVC filter present IMPRESSION: Findings [...] multiple sites with positive rheumatoid factor ([facility]) 03/07/2015 Dr. Hurley ([facility]) Unspecified hemorrhoids without mention of complication [...] hours as needed.^Disp: 1 Each^Rfl: 2 vit A,C,I-Ldho-Gvhajk (OCUVITE PRESERVISION) 2,148 mcg-113 mg-45 mg-17.4mg tab^Take [...] fluticasone (FLONASE) 50 mcg/actuation nasal spray^Use 1 [place] in each nostril once daily.^Disp: 3 Each^Rfl: [...] SPINE FUSN,POST INTERBODY 2011 Dr. Armando at [facility]. Diskectomy and laminectomy PAST SURGICAL HISTORY [...] her underlying bronchiectasis Florence Collins MD Respiratory [facility] documented in this encounterKettering Health [facility]ble06-01-2023 History of Present illness Narrative* Faviola Anthony, [...] 20, 2022 9:35 AM documented in this encounterKettering Health [facility]ble05-11-2023 History of Present illness Narrative* Jimbo Swanson APRN.CNS - 06/29/2022 1:52 PM EDT Continue with Coumadin dosing unchanged and check INR in 2 weeks * Melissa Means RN - 06/29/2022 10:28 AM EDT patient had inr completed at [facility] patients inr is 2.1 (patients inr range [...] reading since dose change documented in this encounterKettering Health [facility]ble04-04-2023 Miscellaneous Notes* Telephone Encounter - Claudine Durán [...] from Dr Rani Cowart's office [facility] states they received a signed clearance [...] is scheduled for surgery tomorrow morning. PH: [phone] X [phone] FAX: [phone]. Maricarmen Jacobs LPN documented in this encounterKettering Health [facility]ble03-16-2023 History of Present illness Narrative* Jimbo Swanson APRN.CNS - 05/04/2022 12:54 PM EDT Continue Coumadin dose unchanged and check INR in 1 month * Melissa Means RN - 05/04/2022 10:26 AM EDT patient had inr completed at [facility] patients inr is 2.0 (patients inr range [...] for follow up INR. documented in this encounterKettering Health [facility]ble02-16-2023 History of Present illness Narrative* Jimbo Swanson APRN.CNS - 04/06/2022 12:24 PM EST Continue with Coumadin dose unchanged and check INR in 4 weeks * Melissa Means RN - 04/06/2022 9:45 AM EST patient had inr completed at [facility] patients inr is 2.0 (patients inr range [...] for follow up INR. documented in this encounterKettering Health [facility]ble02-09-2023 History of Present illness Narrative* Melissa Means [...] AM EST patient had inr completed at [facility] patients inr is 2.3 (patients inr range [...] up inr on 04/06/22 documented in this encounterKettering Health [facility]ble01-23-2023 History of Present illness Narrative* Claudine Durán MD - 03/13/2022 10:41 AM EST This note was created using ACEriter. Subjective Haydee Bustamante is a 76 year old female. Patient presents with: 4 month follow up SUBJECTIVE: Haydee Bustamante is a 76 year old year old lady here today for 4 month follow up appointment for reviewof medical conditions. Following with eye doctor. Has early macular degeneration. Given glasses for it. Having foot surgery at [facility] May 19. Told will be extensive--straighten [...] Bone marrow involvement with histoplasmosis Bronchiectasis ([facility]) COPD (chronic obstructive pulmonary disease) ([facility]) Disseminated histoplasmosis Colitis, immunosuppression, 01/2018. Diverticulosis of colon (without mention of hemorrhage) Diverticulosis DVT, recurrent, lower extremity, acute ([facility]) 12/10/2014 Esophageal reflux Hiatal hernia 02/25/2018 Hypertension Personal history of unspecified urinary disorder Rheumatoid arthritis involving multiple sites with positive rheumatoid factor ([facility]) 03/07/2015 Dr. Hurley ([facility]) Unspecified hemorrhoids without mention of complication Hemorrhoids Current Outpatient Medications Medication Sig naproxen (NAPROSYN) 500 mg tablet Take 1 tablet by mouth twice daily as needed. Take with food gabapentin (NEURONTIN) 300 mg capsule Take 1 capsule by mouth twice daily. fluticasone (FLONASE) 50 mcg/actuation nasal spray Use 1 [place] in each nostril once daily. tiotropium bromide [...] multiple sites with positive rheumatoid factor ([facility]) M05.79 5. COPD without exacerbation ([facility]) J44.9 6. Bronchiectasis without complication ([facility]) J47.9 7. Acquired hammertoe of left foot [...] and as needed for preop eval for laboratory courier. Noted that has not needed bridging Lovenox when has been off coumadin. Continue present management with anticoagulation. .BP controlled. Continue present management. Claudine Durán MD documented in this encounterKettering Health [facility]12-15-2022 History of Present illness Narrative* Jimbo Swanosn APRN.SALES INCENTIVE ANALYST - 02/02/2022 1:32 PM EST Continue with Coumadin dose unchanged check INR in 4 weeks * Melissa Means RN - 02/02/2022 10:49 AM EST patient had inr completed at [facility] patients inr is 2.0 (patients inr range [...] for follow up INR. documented in this encounterKettering Health [facility]ble11-29-2022 Miscellaneous Notes* Telephone Encounter - Geni Cintron [...] advise. Geni Cintron LPN documented in this encounterKettering Health Preble11-23-2022 Miscellaneous Notes* Telephone Encounter - Lynne Mann LPN - 01/11/2022 9:09 AM EST Spoke with pt and information listed below given. Pt verbalizes understanding. She will get the labs when they are due. 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 Lynne Mann LPN documented in this encounterKettering Health [facility]ble11-17-2022 History of Present illness Narrative* Melissa Means RN - 01/05/2022 4:[address] haynes he agrees with information * Melissa Means RN - 01/05/2022 1:09 PM EST patient had inr completed at [facility] patients inr is 2.2 (patients inr range [...] follow u p INR. documented in this encounterKettering [facility]11-12-2022 History of Present illness Narrative* Katarzyna Gage [...] 31, 2021 11:45 AM documented in this encounterKettering Health [facility]11-03-2022 History of Present illness Narrative* Melissa Means RN - 12/22/2021 3:56 PM EDT PATIENT NOTIFIED OF INFORMATION * Jimbo Swanson APRN.CNS - 12/22/2021 1:40 PM EDT Recommend Coumadin 7.5 mg today. Then resume usual dosing 5 mg Sunday and 7.5 mg all other days. Check INR 2 weeks * Melissa Means RN - 12/22/2021 11:16 AM EDT patient had inr completed at [facility] patients inr is 1.4 (patients inr range [...] up inr on 01/05/22 documented in this encounterKettering Health [facility]10-11-2022 History of Present illness Narrative* Florence Collins MD - 11/29/2021 10:00 AM EDT Images from the original note were not included. . Respiratory [place] Note Patient name: Haydee Bustamante PCP: Claudine Durán MD CC: Follow-up lung disease HPI: Haydee Bustamante 76 year old female former [id number] smoker having quit in 1989 with PMH [...] (HCC) COPD (chronic obstructive pulmonary disease) ([facility]) Disseminated histoplasmosis Colitis, immunosuppression, 01/2018. Diverticulosis of colon (without mention of hemorrhage) Diverticulosis DVT, recurrent, lower extremity, acute ([facility]) 12/10/2014 Esophageal reflux Hiatal hernia 02/25/2018 Hypertension Personal history of unspecified urinary disorder Rheumatoid arthritis involving multiple sites with positive rheumatoid factor ([facility]) 03/07/2015 Dr. Hurley ([facility]) Unspecified hemorrhoids without mention of complication Hemorrhoids ALLERGIES Allergen Reactions Penicillins Hives fluticasone (FLONASE) 50 mcg/actuation nasal spray^Use 1 [place] in each nostril once daily.^Disp: 3 Each^Rfl: [...] SPINE FUSN,POST INTERBODY 2012 Dr. Armando at [facility]. Diskectomy and laminectomy PAST SURGICAL HISTORY [...] treatment per rheumatology Florence Collins MD Respiratory [place] documented in this encounterKettering Health [facility]10-06-2022 Miscellaneous Notes* Telephone Encounter - Pili Burgos - 11/24/2021 10:37 AM EDT error documented in this encounterKettering Health Preble09-22-2022 History of Present illness Narrative* Jimbo Swanson APRN.SALES INCENTIVE ANALYST - 11/10/2021 9:20 AM EDT SUBJECTIVE: BP [...] and COPD. HPI excerpted from previous visit: Exceptional Needs Teacher: William GOTTI, aortic stenosis - has 01/2021 appt P D Driver: Mirian Medrano / Johanna Mariscal 6 month follow up with PFT 05/2020 Infectious disease:Ayanna Schulte -histoplasmosis on Humira -follow-up in 6 months 09/2019 Advertising Copywriter:: Today reports had toe infection has completely healed. States that laboratory courier discussed possible amputation of toe but would prefer not to go that route. May see an alternate laboratory courier at [facility]. States took blood pressure medication today. [...] 12 mos RA: controlled currently, following with food and beverage server. OAC: no bleeding difficulties. Occasional bruising. Spiriva [...] fluticasone (FLONASE) 50 mcg/actuation nasal spray^Use 1 [place] in each nostril once daily.^Disp: 3 Bottle^Rfl: [...] rheumatoid factor (HCC) 03/07/2015 Dr. Hurley ([facility]) Unspecified hemorrhoids without mention of complication [...] Abs Lymph 1.00 - 4.00 k/uL 1.64 Maury% % 8.0 Abs Maury <0.87 k/uL 0.60 Eosin% % 2.7 Abs [...] (HCC) - ICD9: 496, ICD10: J44.9 - [id number] BL 3. Encounter for immunization - ICD9: [...] 746.3, 746.4, ICD10: Q23.0, Q23.1 Jimbo Swanson APRN.SALES INCENTIVE ANALYST] Jimbo Swanson APRN.CNS Medical Decision Making: Problems: Moderate: 1+ chronic illnesses with change and 2+ stable chronic illnesses Risk: Moderate: Drug management Medical Decision Making Level: 4 - Moderate documented in this encounterKettering [facility]09-21-2022 Miscellaneous Notes* Telephone Encounter - Claudine Durán [...] can not be approved. documented in this encounterKettering Health [facility]ble09-20-2022 Miscellaneous Notes* Telephone Encounter - Ruby Tobin [...] you. Ruby Tobin RN documented in this encounterKettering Health [facility]ble09-13-2022 Instructions* Patient Instructions* Chacho Louise - 11/01/2021 9:29 AM EDT Your ulceration is now healed Ok to continue with padding as needed F/u as needed documented in this encounterKettering Health [facility]ble09-13-2022 History of Present illness Narrative* Chacho Louise [...] rheumatoid factor (HCC) 03/07/2015 Dr. Hurley ([facility]) Unspecified hemorrhoids without mention of complication [...] (FLONASE) 50 mcg/actuation nasal spray Use 1 [place] in each nostril once daily. (Patientnot taking: [...] SPINE FUSN,POST INTERBODY 2011 Dr. Armando at [facility]. Diskectomy and laminectomy PAST SURGICAL HISTORY [...] Has stopped wrapping it. documented in this encounterKettering Health [facility]ble09-08-2022 History of Present illness Narrative* Melissa Means RN - 10/27/2021 11:06 AM EDT patient had inr completed at [facility] patients inr is 1.6 (patients inr range [...] for follow up INR. documented in this encounterKettering Health [facility]ble08-30-2022 Instructions* Patient Instructions* Chacho Louise - 10/18/2021 9:[address] aquacel on ulceration daily Place lambs wool or guaze horizontally between the interspace Secure lambs wool or guaze with daniella wrap or tape Wear surgical shoe or wide sneaker or even sandal to avoid pressure on 5th toe documented in this encounterKettering Health Preble08-30-2022 History of Present illness Narrative* Chacho Louise [...] rheumatoid factor (HCC) 03/07/2015 Dr. Hurley ([facility]) Unspecified hemorrhoids without mention of complication [...] (FLONASE) 50 mcg/actuation nasal spray Use 1 [place] in each nostril once daily. (Patientnot taking: [...] SPINE FUSN,POST INTERBODY 2011 Dr. Armando at [facility]. Diskectomy and laminectomy PAST SURGICAL HISTORY [...] Chacho Louise DPM Podiatry [address] [facility] [address] Dept: [phone] Dept * Imelda Quijano LPN - 10/18/2021 8:48 AM EDT AMB ROOMING INTAKE FLOWSHEET DATA Pain Pain Level: 4 Pain Location: Toe Description: Sharp, Raw, Sore Duration Amount of Time: 2 Duration Units: Months Frequency: Intermittent Intervention/Comfort measure: Reposition, Relaxation Patient presents with: Right Foot - Established Patient, Follow Up, Pain, Blister Imelda Quijano LPN documented in this encounterKettering Health [facility]ble08-30-2022 Miscellaneous Notes* Telephone Encounter - Muna Porter [...] you. Muna Porter RN documented in this encounterKettering Health Preble08-24-2022 History of Present illness Narrative* RT Vanessa(R) [...] 12, 2021 10:06 AM documented in this encounterKettering Health Preble08-24-2022 History of Present illness Narrative* Lucero GarciaClasesD Tech - 10/12/2021 9:30 AM EDT Radiology Service [...] PERIPHERAL IV DATA: Not applicable SIGNED BY: Krista Martinez Workstiro Pete October 12, 2021 9:56 AM documented in this encounterKettering Health [facility]ble08-11-2022 History of Present illness Narrative* Jimbo Swanson APRN.CNS - 09/29/2021 1:52 PM EDT Continue current Coumadin dose unchanged and check INR in 4 weeks * Melissa Means RN - 09/29/2021 1:20 PM EDT patient had inr completed at [facility] patients inr is 2.0 (patients inr range [...] for follow up INR. documented in this encounterKettering Health [facility]ble08-02-2022 Instructions* Patient Instructions* Jimbo Swanson APRN.CNS - 09/20/2021 1:55 PM EDT Keep your toe clean dry and . Was with soap and water daily, dry thoroughly. Use lambswool between toes. Avoid tight shoes documented in this encounterKettering Health Preble08-02-2022 History of Present illness Narrative* Jimbo Swanson [...] and COPD. HPI excerpted from previous visit: Exceptional Needs Teacher: William Messina BAV, aortic stenosis - has 01/2021 appt P D Driver: Mirian Medrano / Johanna Mariscal 6 month follow up with PFT 05/2020 Infectious disease:Ayanna Schulte -histoplasmosis on Humira -follow-up in 6 months 09/2019 Advertising Copywriter:: Home blood pressure and heart rate: no [...] 12 mos RA: controlled currently, following with food and beverage server. Histoplasmosis: notes resolved symptoms. OAC: no bleeding difficulties. Occasional bruising. Spiriva and intermittent albuterol has helped with cough. Presents today for foot lesion. 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 She notes that [...] (FLONASE) 50 mcg/actuation nasal spray Use 1 [place] in each nostril once daily. econazole (SPECTAZOLE) [...] rheumatoid factor (HCC) 03/07/2015 Dr. Hurley ([facility]) Unspecified hemorrhoids without mention of complication [...] Abs Lymph 1.00 - 4.00 k/uL 1.64 Maury% % 8.0 Abs Maury <0.87 k/uL 0.60 Eosin% % 2.7 Abs [...] Level: 3 - Low documented in this encounterKettering Health Preble07-18-2022 Miscellaneous Notes* Letter - Mammography Coordinator - 09/05/2021 10:07 AM EDT September 05, 2021 PID: [id number] Haydee Bustamante [address] [place] [id number] Dear Ms. Bustamante, Your recent breast imaging exam on 09/05/2021 showed a possible finding that requires additional imaging studies for a complete evaluation. Most such findings are probably benign (not cancer). If you have a healthcare provider who ordered/prescribed your screening mammogram: Please call [phone] or [phone] to schedule an appointment for your additional [...] and reports are [facility] as part of your permanent medical record, and are available for your continuing care. Thank you for allowing us to help in meeting your health care needs. Sincerely, Dr. Bell Interpreting Radiologist [facility] (Additional imaging) documented in this encounterKettering Health Preble07-18-2022 History of Present illness Narrative* Emi Gloria, Mammo Tech - 09/05/2021 9:30 AM EDT Radiology Service [...] IV DATA: Not applicable SIGNED BY: Lucero HernandezClasesD Pete September 05, 2021 9:28 AM documented in this encounterKettering Health [facility]ble07-05-2022 History of Present illness Narrative* Melissa Means RN - 08/23/2021 4:36 PM EDT per verbal order by middleware consultant provider dr rowell she agrees with information * Melissa Means RN - 08/23/2021 12:01 PM EDT patient had inr completed at [facility] patients inr is 2.2 (patients inr range [...] for follow up INR. documented in this encounterKettering Health [facility]ble06-24-2022 History of Present illness Narrative* William Messina DO - 08/12/2021 11:31 AM EDT Images from the original note were not included. [facility] SECTION OF REGIONAL CARDIOLOGY [facility] OUTPATIENT VISIT DATE August 12, 2021 PRIMARY CARE PHYSICIAN: Claudine Durán [address] [place] [address] HISTORY OF PRESENT ILLNESS: Ms. Bustamante is a 76 year old female. The patient returns for follow-up due to history of known bicuspid aortic valve stenosis. Previous stenosis has been evaluation as showed this to be mild. Additionalhistory includes hypertension. 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 She is planning on doing Hive guard unlimited again this summer. She denies chest discomfort, [...] multiple sites with positive rheumatoid factor ([facility]) 03/07/2015 Dr. Hurley ([facility]) Unspecified hemorrhoids without mention of complication [...] SPINE FUSN,POST INTERBODY 2012 Dr. Armando at [facility]. Diskectomy and laminectomy PAST SURGICAL HISTORY [...] (FLONASE) 50 mcg/actuation nasal spray Use 1 [place] in each nostril once daily. econazole (SPECTAZOLE) [...] is otherwise normal. William Messina DO, FACC, FAC Clinical and Preventive Cardiology Department of Medicine and Division of Cardiology, [facility] Phlebotomy Techcarburetor expert [facility] Phlebotomy Tech of Congestive Heart Failure Clinic [facility] Cardiology Office Phlebotomy Tech [facility] Staff Exceptional Needs Teacher, [place] and Edilma Pierce Department of Cardiovascular Medicine/Heart and Vascular [place], [facility] Clinical School Treasurer Profressor of Medicine, [facility] Please note: This note has been produced using speech recognition software and may contain errors related to that system including madelyn, punctuation, spelling, words, gender and phrases that may be inappropriate. documented in this encounterKettering Health Preble06-10-2022 Miscellaneous Notes* Telephone Encounter - Nahomy Mercado - 07/29/2021 2:32 PM EDT Pharmacy faxed requesting the following refill. Pending Prescriptions Disp Refills SYMBICORT 160 MCG-4.5 MCG/ACTUATION HFA AEROSOL INHALER 30.6 g 4 Sig: USE 2 INHALATIONS TWICE A DAY INSTRUCTED YULIANA: Yes Patient last appointment: [address] [place] [address] Andujar Patient Phone numbers: [phone] (home) Request is for script(s) to be escript to pharmacy. Nahomy Mercado documented in this encounterKettering Health [facility]ble06-06-2022 History of Present illness Narrative* Melissa Means RN - 07/25/2021 4:39 PM EDT pcp agrees with information * Melissa Means RN - 07/25/2021 11:43 AM EDT patient had inr completed at [facility] patients inr is 1.8 (patients inr range [...] for follow up INR. documented in this encounterKettering Health Preble05-23-2022 History of Present illness Narrative* Claudine Durán MD - 07/11/2021 8:18 AM EDT This note was created using QFPayter. Subjective Haydee Bustamante is a 76 year [...] toe surgery for now--has show. 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 Noted fell when missed top step. [...] multiple sites with positive rheumatoid factor ([facility]) 03/07/2015 Dr. Hurley ([facility]) Unspecified hemorrhoids without mention of complication [...] (FLONASE) 50 mcg/actuation nasal spray Use 1 [place] in each nostril once daily. econazole (SPECTAZOLE) [...] Abs Lymph 1.00 - 4.00 k/uL 1.64 Maury% % 8.0 Abs Maury <0.87 k/uL 0.60 Eosin% % 2.7 Abs [...] vaccine - ICD9: V04.89, ICD10: Z23 - [employer] COVID-19 VACCINE, AGE 12+ YR (ARIAS TOP) 6. COPD without exacerbation (HCC) - ICD9: 496, ICD10: J44.9 Continue present management. Discussed Dr. Andujar's instructions to use albuterol before activity that causes coughing 7. Bronchiectasis without complication (HCC) - ICD9: 494.0, ICD10: J47.9 As noted above. Fall discussed. Arthritis discussed. Claudine Durán MD documented in this encounterKettering Health Preble05-12-2022 History of Present illness Narrative* Gold Colón [...] venegas name is Katarzyna Malcolm RN your Exceptional Needs Teacher from Claudine Durán MD [facility] at the [facility]. I am reaching out today because I [...] Bustamante. This is Katarzyna Malcolm RN your Exceptional Needs Teacher from the [facility]. I am calling to check in with you concerning the MyChart questionnaire you have been receiving from me. I will call you again tomorrow and am looking forward to speaking with you. (Exceptional Needs Teacher enters next day in "next patient outreach") Katarzyna Malcolm RN June 29, 2021 3:31 PM documented in this encounterKettering Health [facility]ble04-21-2022 History of Present illness Narrative* Melissa Means RN - 06/09/2021 4:19 PM EDT per middleware consultant provider dr garza patient is to continue same dose PATIENT NOTIFIED OF INFORMATION * Melissa Means RN - 06/09/2021 10:26 AM EDT patient had inr completed at [facility] patients inr is 1.6 (patients inr range [...] for follow up INR. documented in this encounterKettering Health Preble04-18-2022 Miscellaneous Notes* Telephone Encounter - Sergey Ramirez [...] pharmacy. Sergey Ramirez Ma documented in this encounterKettering Health Preble04-11-2022 Instructions* Patient Instructions* Mirian Andujar MD - [...] I am retiring from the staff of [facility] and the practice of Medicine on August 18, 2021, after 41 years of service to my patients. It has been my privilege to provide you with Pulmonary consultation and care for the time we have known each other. Please feel confident that my colleagues are well equipped to provide ongoing care in the future: Chito Collins MD and Johanna Mariscal PA-C. documented in this encounterKettering Health Preble04-11-2022 History of Present illness Narrative* Mirian Andujar MD - 2021 3:33 PM EDT [facility], 2021: Name: Haydee Bustamante : 1945 INTERVAL [...] months, sooner if needed. Mirian Andujar MD, [facility] [address] [place] [id number] P: [phone] F: [phone] documented in this encounterKettering Health [facility]ble04-07-2022 History of Present illness Narrative* Melissa Means RN - 05/26/2021 3:21 PM EDT middleware consultant provider agrees with information * Melissa Means RN - 05/26/2021 10:43 AM EDT patient had inr completed at [facility] patients inr is 1.6 (patients inr range [...] is just slightly low documented in this encounterKettering Health Preble04-01-2022 History of Present illness Narrative* Nara Dill - 05/20/2021 2:45 PM EDT POPULATION HEALTH NAVIGATION OUTREACH Action/FYI: [place] Care Gaps Discuss/Due: Advance Directives, Screening Mammogram due 06/02/21 or after Outcome: Patient Declined Scheduling Pt identified by name and : YES, via phone Outreach Outcome/Action Spoke to patient or caregiver: Patient declined Reason for Outreach Care Gap or Scheduling/Wellness visits Payer: Payor: [employer]ICARE / Plan: [employer] MEDICARE PPO / Product Type: PPO / [...] 20, 2021 2:45 PM documented in this encounterKettering Health Preble01-24-2022 History of Present illness Narrative* Claudine Durán MD - 03/14/2021 8:16 AM EST This note was created using [employer]. Subjective Haydee Bustamante is a 75 [...] rheumatoid factor (HCC) 03/07/2015 Dr. Hurley ([facility]) Unspecified hemorrhoids without mention of complication [...] (FLONASE) 50 mcg/actuation nasal spray Use 1 [place] in each nostril once daily. potassium chloride [...] good control - Follows with Dr. Messina ([facility] cardiology) - Continue current medication(s) - Recommended [...] ICD10: M05.79 Stable on meds through [facility]--Dr. Hurley Gets labs through his office. Lipid ordered. I spent a total of at least 30 minutes on the date of the service which included [id number] patient care, completing clinical documentation, obtaining and/or reviewing separately obtained history, performing a medically appropriate examination, counseling and educating the patient/family/caregiver and ordering medications, tests, or procedures. Claudine Durán MD documented in this encounterKettering Health [facility]ble01-18-2019 History of Past illness Narrative* Problem Noted [...] of this encounter (statuses as of 05/20/2021) [facility] Past illness Narrative* Problem Noted [...] of this encounter (statuses as of 05/22/2021) [facility] illness Narrative* Problem Noted [...] of this encounter (statuses as of 05/26/2021) [facility] Past illness Narrative* Problem Noted [...] of this encounter (statuses as of 06/06/2021) [facility] of Past illness Narrative* Problem Noted [...] of this encounter (statuses as of 06/09/2021) [facility] of Past illness Narrative* Problem Noted [...] of this encounter (statuses as of 06/30/2021) [facility] illness Narrative* Problem Noted [...] of this encounter (statuses as of 07/25/2021) [facility] Past illness Narrative* Problem Noted [...] of this encounter (statuses as of 08/01/2021) [facility] illness Narrative* Problem Noted [...] of this encounter (statuses as of 08/12/2021) [facility] illness Narrative* Problem Noted [...] of this encounter (statuses as of 08/23/2021) [facility] Narrative* Problem Noted [...] of this encounter (statuses as of 09/06/2021) [facility] illness Narrative* Problem Noted [...] of this encounter (statuses as of 09/06/2021) [facility] Narrative* Problem Noted [...] of this encounter (statuses as of 09/07/2021) [facility] Narrative* Problem Noted [...] of this encounter (statuses as of 09/20/2021) [facility] Narrative* Problem Noted [...] of this encounter (statuses as of 09/29/2021) [facility] Narrative* Problem Noted [...] of this encounter (statuses as of 10/13/2021) [facility] Narrative* Problem Noted [...] of this encounter (statuses as of 10/13/2021) [facility] Narrative* Problem Noted [...] of this encounter (statuses as of 10/18/2021) [facility] Narrative* Problem Noted [...] of this encounter (statuses as of 10/18/2021) [facility] Narrative* Problem Noted [...] of this encounter (statuses as of 10/19/2021) [facility] Narrative* Problem Noted [...] of this encounter (statuses as of 10/27/2021) [facility] Narrative* Problem Noted [...] of this encounter (statuses as of 11/01/2021) [facility] Narrative* Problem Noted [...] of this encounter (statuses as of 11/08/2021) [facility] Narrative* Problem Noted [...] of this encounter (statuses as of 11/10/2021) [facility] Narrative* Problem Noted [...] of this encounter (statuses as of 11/10/2021) [facility] Narrative* Problem Noted [...] of this encounter (statuses as of 11/29/2021) [facility] Narrative* Problem Noted [...] of this encounter (statuses as of 12/04/2021) [facility] Narrative* Problem Noted [...] of this encounter (statuses as of 12/22/2021) [facility] Narrative* Problem Noted [...] of this encounter (statuses as of 12/27/2021) [facility] Narrative* Problem Noted [...] of this encounter (statuses as of 01/05/2022) [facility] Narrative* Problem Noted [...] of this encounter (statuses as of 01/11/2022) [facility] Narrative* Problem Noted [...] of this encounter (statuses as of 01/17/2022) [facility] Narrative* Problem Noted [...] of this encounter (statuses as of 01/17/2022) [facility] Narrative* Problem Noted [...] of this encounter (statuses as of 02/02/2022) [facility] illness Narrative* Problem Noted [...] of this encounter (statuses as of 02/22/2022) [facility] History of Past illness Narrative* Problem Noted [...] of this encounter (statuses as of 02/24/2022) [facility] History of Past illness Narrative* Problem Noted [...] of this encounter (statuses as of 03/14/2022) [facility] History of Past illness Narrative* Problem Noted [...] of this encounter (statuses as of 03/30/2022) [facility] History of Past illness Narrative* Problem Noted [...] of this encounter (statuses as of 04/06/2022) [facility] History of Past illness Narrative* Problem Noted [...] of this encounter (statuses as of 04/21/2022) [facility] History of Past illness Narrative* Problem Noted [...] of this encounter (statuses as of 05/04/2022) [facility] History of Past illness Narrative* Problem Noted [...] of this encounter (statuses as of 05/24/2022) [facility] History of Past illness Narrative* Problem Noted [...] of this encounter (statuses as of 06/01/2022) [facility] History of Past illness Narrative* Problem Noted [...] of this encounter (statuses as of 06/29/2022) [facility] History of Past illness Narrative* Problem Noted [...] of this encounter (statuses as of 07/24/2022) [facility] History of Past illness Narrative* Problem Noted [...] of this encounter (statuses as of 07/24/2022) [facility] History of Past illness Narrative* Problem Noted [...] of this encounter (statuses as of 08/13/2022) [facility] History of Past illness Narrative* Problem Noted [...] of this encounter (statuses as of 08/15/2022) [facility] History of Past illness Narrative* Problem Noted [...] of this encounter (statuses as of 09/08/2022) [facility] History of Past illness Narrative* Problem Noted [...] of this encounter (statuses as of 09/11/2022) [facility] History of Past illness Narrative* Problem Noted [...] of this encounter (statuses as of 09/15/2022) [facility] History of Past illness Narrative* Problem Noted [...] of this encounter (statuses as of 09/26/2022) [facility] History of Past illness Narrative* Problem Noted [...] of this encounter (statuses as of 10/10/2022) [facility] History of Past illness Narrative* Problem Noted [...] of this encounter (statuses as of 10/13/2022) [facility] History of Past illness Narrative* Problem Noted [...] of this encounter (statuses as of 10/27/2022) [facility] History of Past illness Narrative* Problem Noted [...] of this encounter (statuses as of 10/27/2022) [facility] History of Past illness Narrative* Problem Noted [...] of this encounter (statuses as of 10/31/2022) [facility] History of Past illness Narrative* Problem Noted [...] of this encounter (statuses as of 10/31/2022) [facility] History of Past illness Narrative* Problem Noted [...] of this encounter (statuses as of 11/02/2022) [facility] History of Past illness Narrative* Problem Noted [...] of this encounter (statuses as of 11/10/2022) [facility] History of Past illness Narrative* Problem Noted [...] of this encounter (statuses as of 11/23/2022) [facility] History of Past illness Narrative* Problem Noted [...] of this encounter (statuses as of 12/07/2022) [facility] History of Past illness Narrative* Problem Noted [...] of this encounter (statuses as of 12/07/2022) [facility] History of Past illness Narrative* Problem Noted [...] of this encounter (statuses as of 12/15/2022) [facility] History of Past illness Narrative* Problem Noted [...] of this encounter (statuses as of 12/20/2022) [facility] History of Past illness Narrative* Problem Noted [...] of this encounter (statuses as of 12/24/2022) [facility] History of Past illness Narrative* Problem Noted [...] of this encounter (statuses as of 12/24/2022) [facility] History of Past illness Narrative* Problem Noted [...] of this encounter (statuses as of 01/04/2023) [facility] History of Past illness Narrative* Problem Noted [...] of this encounter (statuses as of 01/05/2023) [facility] History of Past illness Narrative* Problem Noted [...] of this encounter (statuses as of 01/10/2023) [facility] History of Past illness Narrative* Problem Noted [...] of this encounter (statuses as of 01/18/2023) [facility] History of Past illness Narrative* Problem Noted [...] of this encounter (statuses as of 01/24/2023) [facility] History of Past illness Narrative* Problem Noted [...] of this encounter (statuses as of 02/03/2023) [facility] History of Past illness Narrative* Problem Noted [...] of this encounter (statuses as of 02/08/2023) [facility] History of Past illness Narrative* Problem Noted [...] of this encounter (statuses as of 03/24/2023) [facility] History of Past illness Narrative* Problem Noted [...] of this encounter (statuses as of 03/27/2023) [facility] History of Past illness Narrative* Problem Noted [...] of this encounter (statuses as of 04/01/2023) [facility] History of Past illness Narrative* Problem Noted [...] of this encounter (statuses as of 04/03/2023) [facility] History of Past illness Narrative* Problem Noted [...] of this encounter (statuses as of 04/30/2023) [facility]* Chief Complaint BLOOD IN SPUTUM DEBILITY Reason for Visit Colitis Confusion COVID-19 Generalized weakness Histoplasmosis [facility] Work Phone: Discharge summary Author Jasmyn Chan [facility] April 05, 2023 11:35am Note Date/Time April 05, 2023 11:26am [facility] Medical Records Department [address] [place] [address] Transfer to [facility] MR#: [id number] Acct: [id number] Name: HAYDEE BUSTAMANTE Rep #:[id number] : 1945 77 From: Jasmyn Chan DO PCP: Dr. Claudine Durán MD Status:AD M IN Certification of patient admission REQUIRED AT TIME OF ADMISSION. I CERTIFY THAT POST-HOSPITAL ECF SERVICES ARE REQUIRED TO BE GIVEN ON AN IN-PATIENT BASIS BECAUSE OF THE ABOVE NAMED PATIENT'S NEED FOR JAIL CARE ON A CONTINUING BASIS FOR THE CONDITION(S) FOR WHICH HE/SHE WAS RECEIVING IN-PATIENT HOSPITAL SERVICES PRIOR TO HIS/HER TRANSFER TO THE ECF. 04/05/23 1135<Electronically signed by Jasmyn Chan DO> [...] Royal; Leobardo Calloway; Jorgito Agarwal; Rosalina Herrera LABEL CUTTER Discharge Orders/Prescriptions Prescriptions: New acetaminophen 325 mg [...] Qty: 0 0RF fluticasone propionate 50 mcg/actuation [place],Suspension 1 spray NASAL DAILY Qty: 0 0RF [...] in before D/C Order can be placed): [facility] 04/05/23 1135 <Electronically signed by Jasmyn Chan DO> Cosigner Signature (if applicable): CC: LABEL CUTTER-C Rosalina Herrera; Dr. Alisa Mathew MD; Dr. Naman [...] Royal MD; Dr. Jorgito Agarwal DO ~ [facility] Work Phone: Discharge summary Author Ron Mariscal [facility] Note Date/Time August 23, 2024 10:29 am [facility] Medical Records Department [address] [place] [address] Emergency Department Summary 08/23/24 MR#: [id number] Acct: [id number] Name: HAYDEE BUSTAMANTE Rep #:[id number] : 1945 79 From: Ron Mariscal MD PCP: Dr. Claudine Durán MD Status:RE G ER Location: ED HPI HPI - Fall History of Present Illness Chief Complaint: Fall Informant: patient and EMS Narrative Narrative: 79-year-old female presents to the ER by EMS after a fall. She arrives a littleafter 7 AM, she states the fall occurred at around 1:30 AM. 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 She injured her left wrist as she used her left upper extremity to try to catch herself when she was falling, and injured her left face mildly. She denies having a headache. She is on warfarin. She states shegot up out of bed to go brush her teeth, and she is not sure why she fell, but she denies any prodromal symptoms such as lightheadedness, dyspnea, chest discomfort, and denies any loss of consciousness at any point in time or syncope. [id number]. Lives by herself. 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 She states this morning she laid there formost of the morning except for when she scooted herself around with her right arm and legs to get to telephone and to get to the front door and unlock the door for the EMS personnel. She states typically she would have difficulty getting up off of the floor but would be able to if her wrist was not injured [facility] Medical History Hypertension GERD (gastroesophageal reflux disease) Pericardial effusion CHF (congestive heart failure) Wears glasses Walker as ambulation aid Ambulates [...] venous thrombosis) Pulmonary embolism Colitis COVID-19 Histoplasmosis Home Medications ?Medication ?Instructions ?Recorded ?Last Taken ?Type multivitamin (Daily Multi-Vitamin 1 tab PO DAILY suppl ement 03/19/23 10/01/23 History tablet) vitamins A,C,M-zbut-rowjsf 2,148 2 tab PO BID eye heal th 03/19/23 10/01/23 History mcg-113 mg-45 mg-17.4 mg tablet (PreserVision AREDS) gabapentin 300 mg capsule 300 mg PO Q12 nerve pain #0 caps 04/05/23 10/01/23 Rx potassium chloride 20 mEq 20 meq PO BIDCM #0 tabs 10/1210/01/23 Rx tablet,extended release(part/cryst) fluticasone propionate 50 1 spray intranasal DAILY 10/02/23 History mcg/actuation nasal spray,suspension furosemide 20 mg tablet 20 mg PO DAILY PRN edema 10/01/23 History tiotropium bromide 2.5 2 puff inhalation DAILY 07/2110/02/23 History mcg/actuation mist for inhalation (Spiriva Respimat) diclofenac sodium 1 % topical gel 4 g topical BID PRN PRN knee pain 08/18/23 10/02/23 Rx (Voltaren Arthritis Pain) #100 grams warfarin 5 mg tablet See Rx Instructions .Route 0 08/18/23 09/27/23 Rx Held on 10/01/23. .COMPLEX #30 tabs Instructions: ON HOLD FOR COLONOSCOPY omega 3-dzi-rlz-fish oil 1,200 mg 1 cap PO DAILY 09/30 Unknown History (144 mg-216 mg) capsule (Fish Oil) albuterol sulfate 90 mcg/actuation 2 puff inhalation Q 4H PRN PRN 06/13/24 Unknown History aerosol inhaler cholecalciferol (vitamin D3) 25 25 mcg PO QDAY 5 Unknown History mcg (1,000 unit) capsule fluticasone 250 mcg-salmeterol 50 1 inh inhalation BID 06/13/24 Unknown History mcg/dose blistr powdr for inhalation (Wixela Inhub) folic acid 0.8 mg capsule 0.8 mg PO QDAY 06/13/24 Unkn own History methotrexate sodium 2.5 mg tablet 10 mg PO QWEEK 06/13 Unknown History spironolactone 25 mg tablet 25 mg PO DAILY 06/13/24 Un known History sulfasalazine 500 mg 1 g PO BID 06/13/24 Unknown History tablet,delayed release acetaminophen 500 mg tablet 1,000 mg PO TID Pain Score 1-10 06/20/24 Unknown History clindamycin HCl 300 mg capsule 600 mg (2 x 300 mg) PO ONCE #2 caps 06/20/24 Unknown Rx ferrous sulfate 325 mg (65 mg 325 mg PO QDAY 06/20/24 Unknown History iron) tablet metoprolol succinate 25 mg 25 mg PO QDAY #30 tabs 06/21 Unknown Rx tablet,extended release 24 hr Allergy/AdvReac Type Severity Reaction Status Date / Time Penicillins Allergy Severe Anaphylaxis Verified 06/20/24 10:10 Surgical History History of transcatheter aortic valve replacement (TAVR) History of back surgery History of esophagogastroduodenoscopy (EGD) History of tonsillectomy History of embolic filter insertion Hx of foot surgery Social History household members: none Smoking Status: Former smoker alcohol intake: never substance use type: does not use ROS ROS ED Constitutional Constitutional ED: Denies chills or fever(s) Eyes Eyes: Denies blurry vision, change in vision or diplopia ENT ENT ED: Reports facial pain; Denies ear pain, epistaxis or rhinorrhea Cardiovascular Cardiovascular: Denies chest pain or palpitations Respiratory/Chest Respiratory/Chest: Denies cough or dyspnea Gastrointestinal Gastrointestinal: Denies abdominal pain, diarrhea, melena, nausea or vomiting Genitourinary Genitourinary ED: Denies dysuria or hematuria Musculoskeletal Musculoskeletal: Reports arthralgias and extremity pain; Denies back pain or neck pain Integumentary Reports Abrasions; Denies abscess, laceration or rash Neurologic Neurologic: Denies confusion, headache(s), paresthesias or weakness EXAM Physical Exam Const Vital Signs: 08/23/24 07:18 08/23/24 07:31 08/23/24 09:18 Temperature 98.6 F Temperature Source Oral Pulse Rate 84 64 Respiratory Rate 18 18 Respiratory Effort Normal Respiratory Depth Normal Respiratory Pattern Normal Blood Pressure 113/63 134/76 H Blood Pressure Mean 79 95 Pulse Ox 98 98 Oxygen Delivery Method Room Air Room Air Room Air Positive well nourished and well developed General Appearance ED: well developed and NAD HEENT Reports TM's clear and nasal mucous membranes and turbinates normal HEENT Narrative: Abrasion left lateral superior orbital brim without laceration or crepitance, there is no facial bony tenderness. There is a slight amount of ecchymosis justbeneath the left eye. There is no infraorbital hypoesthesia. There is no nasaltenderness or evidence of epistaxis. No Elias sign, no raccoon eyes, no CSF otorhinorrhea, no hemotympanum. trauma and contusion Face and Sinus: Negative for facial tenderness Tympanic Membrane ED: Yes TM's clear Eyes PERRL and EOMs intact bilaterally Eyes Narrative: No evidence of globe trauma or hyphema. Visual Acuity: other Other Details: no entrapment or pain with extraocular movements Neck full ROM and supple General: Negative for tenderness Chest Wall inspection of chest normal and palpation of chest normal Chest: symmetrical chest wall rise; Negative for crepitus or tenderness Resp normal respiratory effort and clear to auscultation bilaterally Percussion: other equal BS bilat Cardio no murmurs Rate: regular rate; Negative for tachycardic Rhythm: regular rhythm GI normal to inspection, nondistended, normoactive bowel sounds, soft to palpation and non-tender Back/Spine normal ROM Cervical Spine: Negative for cervical spine tenderness Thoracic Spine / Upper Back: Negative for thoracic spinal tenderness Lumbar Spine / Lower Back: Negative for lumbar spinal tenderness Extremity Extremity Narrative: Ecchymosis and mild swelling about the left wrist, there is no deformity, but very limited range of motion here due to pain. It is tender at the distal radius but not in the snuffbox, and the distal ulna is nontender but the base ofthe fifth metacarpal is. Full range of motion of all joints otherwise of all 4 extremities including the left elbow, although she has pain in the wrist with supination pronation which is limited. There is palpable and audible creaking when she bends her knees but she is able. General Extremety ED: Yes tenderness Neuro oriented x3, CN's II-XII intact bilaterally, moves all extremities, no focal motor deficits and no sensory deficits noted Calvin Coma Scale: document GCS findings Spontaneous Obeys Commands Oriented 15 Sensorium / Orientation: awake and alert Psych mental status grossly normal and thought process normal Skin no wounds Skin Narrative: Abrasion left face no other evidence of trauma to the skin. Lesions: no lesions Rashes: no rashes MDM MDM MDM Narrative Medical decision making narrative: I ordered a spot check PT/INR, but upon reviewing her past medical history and seeing history of thrombocytopenia and anemia, and although her fall sounds mechanical she is not exactly sure why she fell, so I thought it was more than reasonable to also obtain blood counts and chemistries. She states her last INRwas a week or so ago and it was low so she is scheduled to have it rechecked in another week or 2 from now. It is 1.2 and the rest of her labs are unremarkable. Her head CT on my interpretation is negative for acute hemorrhageor injury radiology in agreement. 3 view left wrist x-ray on my interpretation shows a comminuted impacted distal radius fracture there is no intra-articular component. Radiology also in agreement. She was splinted see the procedure note. I offered admission and placement if she feels like she cannot function with this at home. She went to the bathroom and tried to go on her own after splinting, she had trouble and does not feel that she will be able to function on her own at home with regards to ADLs (she is able to ambulate), and agrees luis admitted for evaluation for possible placement/rehab. Discussed with orthopedics and hospitalist. Lab Data Attestation: I reviewed the patient's lab results. Labs: Laboratory Results - last 24 hr 08/23/24 07:45 WBC 7.9 RBC 3.52 L Hgb 11.3 L Hct 33.9 L MCV 96.3 MCH 32.1 H MCHC 33.3 RDW Std Deviation 58.6 H RDW Coeff of Catarino 17.0 H Plt Count 182 MPV 10.9 Immature Gran % (Auto) 0.500 Neut % (Auto) 82.3 H Lymph % (Auto) 8.1 L Maury % (Auto) 8.6 Eos % (Auto) 0.1 Baso % (Auto) 0.4 Absolute Neuts (auto) 6.5 Absolute Lymphs (auto) 0.64 L Nucleated RBC % 0 PT 15.5 H INR 1.2 Sodium 140 Potassium 3.9 Chloride 104 Carbon Dioxide 22.1 Anion Gap 14 BUN 22 H Creatinine 0.63 L Estim Creat Clear Calc 48.72 L Est GFR (MDRD) Non-Af 91 BUN/Creatinine Ratio 34.8 H Glucose 116 H Calcium 9.2 Total Creatine Kinase 128 Radiography Diagnostic Testing: Clinical Impression(s) from Imaging Studies Wrist X-Ray 08/23/24 07:31 IMPRESSION: Comminuted impacted fracture of the distal radius with intra-articular extension. Reading Location: [facility] Brain CT 08/23/24 08:06 IMPRESSION: 1. Generalized brain atrophy. 2. Small vessel ischemic/degenerative changes. 3. No acute intracranial hemorrhage, midline shift or mass effect. If symptoms persist, further evaluation with MRI is recommended. Reading Location: [facility] Management Discussion w/another healthcare provider: Hospitalist and Bar Manager (ezekiel amanda) Procedures Upper Extremity Splints Upper Extremity Splint: Orthoglass (AP short arm, fabricated. Neurovascularly intact distally after placement) Splint Fabrication: Fabricated Location: Left Discharge Plan Dx/Rx/DC Orders Clinical Impression: Closed fracture of distal end of left radius, Closed head injury without concussion, Abrasion of face, Subtherapeutic international normalized ratio (INR), Fall from slip, trip, or stumble, Declining functional status Disposition Disposition: Acute Care Hospital [facility] What to do if you have Problems For any increased pain, shortness of breath, bleeding, nausea or vomiting, chestpain, or any unexpected problems, contact your Primary Care Provider. Call [facility] ([phone]) or report to the closest Emergency Room. Call 911 if necessary. 08/23/24 1029 <Electronically signed by Ron Mariscal MD> Cosigner Signature (if applicable): CC: Dr. Claudine Durán MD ~ Signed [facility] Work Phone: Evaluation note* Diagnosis Screening mammogram, encounter for- [facility] Essential hypertension- Primary Unspecified essential hypertension History of COVID-19 Cough Bronchiectasis without complication (HCC) Bronchiectasis without acute exacerbation Gastroesophageal reflux disease without esophagitis Esophageal reflux Aortic stenosis with bicuspid valve Rheumatoid arthritis involving multiple sites with positive rheumatoid factor (HCC) [facility] Diagnosis Embolism and thrombosis (HCC) Embolism and thrombosis of unspecified site [facility]* Diagnosis Moderate COPD (chronic obstructive pulmonary disease) (HCC)- Primary Chronic airway obstruction, not elsewhere classified Bronchiectasis without complication (HCC) Bronchiectasis without acute exacerbation Centrilobular emphysema (HCC) Other emphysema [facility]* Diagnosis Cough due to bronchospasm Acute bronchospasm [facility]* Diagnosis Embolism and thrombosis (HCC) Embolism and thrombosis of unspecified site [facility] noteNo assessment information [facility]WFult[facility] Work Phone: Evaluation note* Diagnosis Personal history of DVT (deep vein thrombosis)- Primary Personal history of venous thrombosis and embolism [facility]* Diagnosis Aortic stenosis with bicuspid valve- Primary Essential hypertension Unspecified essential hypertension [facility] Diagnosis Personal history of DVT (deep vein thrombosis)- Primary Personal history of venous thrombosis and embolism [facility]* Diagnosis Encounter for screening mammogram for breast cancer [facility]* Diagnosis Gastroesophageal reflux disease without esophagitis- Primary Esophageal reflux Other viral warts Elevated LDL cholesterol level Pure hypercholesterolemia Essential hypertension Unspecified essential hypertension Need for COVID-19 vaccine COPD without exacerbation (HCC) Bronchiectasis without complication (HCC) Bronchiectasis without acute exacerbation [facility]* Diagnosis Toe infection- Primary Unspecified local infection of skin and subcutaneous tissue Sinobronchitis Unspecified sinusitis (chronic) [facility] Diagnosis Personal history of DVT (deep vein thrombosis)- Primary Personal history of venous thrombosis and embolism [facility]* Diagnosis Abnormal mammogram Abnormal mammogram, unspecified [facility]* Diagnosis Ulcer of toe of left foot, limited to breakdown of skin (HCC)- Primary Hammer toe of left foot Onychodystrophy Other specified disease [facility] Embolism and thrombosis (HCC) Embolism and thrombosis of unspecified site [facility] Diagnosis Ulcer of toe of left foot, limited to breakdown of skin (HCC) Hammer toe of left foot [facility] Diagnosis Ulcer of toe of left foot, limited to breakdown of skin (HCC)- Primary Hammer toe of left foot Hallux rigidus of left foot Hallux rigidus [facility] Diagnosis COPD without exacerbation (HCC) Essential hypertension Unspecified essential hypertension [facility] Diagnosis Essential hypertension- Primary Unspecified essential hypertension Chronic obstructive pulmonary disease, unspecified COPD type (HCC) Encounter for immunization Need for other specified prophylactic vaccination against single bacterial disease Gastroesophageal reflux disease without esophagitis Esophageal reflux Bronchiectasis without complication (HCC) Bronchiectasis without acute exacerbation Aortic stenosis with bicuspid valve [facility] Diagnosis Lung nodules- Primary Other nonspecific abnormal finding of lung field Bronchiectasis without complication (HCC) Bronchiectasis without acute exacerbation Chronic obstructive pulmonary disease, unspecified COPD type (HCC) Rheumatoid arthritis involving multiple sites with positive rheumatoid factor (HCC) [facility] Diagnosis Personal history of DVT (deep vein thrombosis)- Primary Personal history of venous thrombosis and embolism [facility] Diagnosis Rheumatoid arthritis involving multiple sites with positive rheumatoid factor (HCC) Low back pain with right-sided sciatica, unspecified back pain laterality, unspecified chronicity [facility] Diagnosis Rheumatoid arthritis involving multiple sites with positive rheumatoid factor (HCC) Low back pain with right-sided sciatica, unspecified back pain laterality, unspecified chronicity Pseudogout Other disorder of calcium metabolism [facility]* Diagnosis Personal history of DVT (deep vein thrombosis)- Primary Personal history of venous thrombosis and embolism [facility] Essential hypertension- Primary Unspecified essential hypertension Chronic anticoagulation Long-term (current) use of 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 Aortic stenosis with bicuspid valve Rheumatoid arthritis involving multiple sites with positive rheumatoid factor (HCC) COPD without exacerbation (HCC) Bronchiectasis without complication (HCC) Bronchiectasis without acute exacerbation Acquired hammertoe of left foot Early dry stage nonexudative age-related macular degeneration of both eyes [facility] Diagnosis Personal history of DVT (deep vein thrombosis)- Primary Personal history of venous thrombosis and embolism [facility] Diagnosis Personal history of DVT (deep vein thrombosis)- Primary Personal history of venous thrombosis and embolism [facility] Diagnosis Personal history of DVT (deep vein thrombosis)- Primary Personal history of venous thrombosis and embolism [facility] Diagnosis Lung nodules- Primary Other nonspecific abnormal finding of lung field Bronchiectasis without complication (HCC) Bronchiectasis without acute exacerbation Rheumatoid arthritis involving multiple sites with positive rheumatoid factor (HCC) [facility] Diagnosis Lung nodules- Primary Other nonspecific abnormal finding of lung field Bronchiectasis without complication (HCC) Bronchiectasis without acute exacerbation [facility] Diagnosis Personal history of DVT (deep vein thrombosis)- Primary Personal history of venous thrombosis and embolism [facility] Diagnosis Aortic stenosis with bicuspid valve- Primary Essential hypertension Unspecified essential hypertension History of recurrent deep vein thrombosis (DVT) [facility] Diagnosis Rheumatoid arthritis involving multiple sites with positive rheumatoid factor (HCC) Low back pain with right-sided sciatica, unspecified back pain laterality, unspecified chronicity Pseudogout Other disorder of calcium metabolism [facility]* 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- Primary Long-term (current) use of 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 [facility] Diagnosis Essential hypertension- Primary Unspecified essential [...] with bicuspid valve [facility]* Diagnosis Chronic anticoagulation Long-term (current) use of 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 [facility] Diagnosis Chronic anticoagulation Long-term (current) use of 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 documented in this encounter [facility] note* Diagnosis Personal history of DVT (deep vein thrombosis)- Primary Personal history of venous thrombosis and embolism documented in this encounter [facility] note* Diagnosis Embolism and thrombosis (HCC)- Primary Embolism and thrombosis of unspecified site documented in this encounter [facility] note* Diagnosis DDD (degenerative disc disease), lumbar- Primary Degeneration of lumbar or lumbosacral intervertebral disc Hip pain, acute, left Age-related osteoporosis without current pathological fracture Senile osteoporosis documented in this encounter [facility] note* Diagnosis Embolism and thrombosis (HCC)- Primary Embolism and thrombosis of unspecified site [facility] Diagnosis Rheumatoid arthritis involving multiple sites with positive rheumatoid factor (HCC) Low back pain with right-sided sciatica, unspecified back pain laterality, unspecified chronicity [facility] Diagnosis Lung nodules Other nonspecific abnormal finding of lung field documented in this encounter [facility] note* Diagnosis Encounter for screening mammogram for breast cancer [facility] Diagnosis Encounter for immunization- Primary Need for other specified prophylactic vaccination against single bacterial disease [facility] Diagnosis Embolism and thrombosis (HCC)- Primary Embolism and thrombosis of unspecified site documented in this encounter [facility] note* Diagnosis Personal history of DVT (deep vein thrombosis)- Primary Personal history of venous thrombosis and embolism [facility] Diagnosis Acute cough- Primary [facility]* Diagnosis Onset Date Resolution Status Colitis acute Confusion acute COVID-19 acute Generalized weakness acute Histoplasmosis acute [facility] Work Phone: Evaluation note* Diagnosis Onset Date Resolution Status Confusion acute COVID-19 acute Generalized weakness acute Histoplasmosis acute [facility] Work Phone: Evaluation note* Diagnosis Onset Date Resolution Status Confusion acute COVID-19 acute Generalized weakness acute Histoplasmosis acute Adult failure to thrive acut e Cellulitis acute Generalized weakness acute History of DVT (deep vein thrombosis) acute Leg edema acute Rheumatoid arthritis acute Weakness acute [facility] Work Phone: Evaluation note* Diagnosis Hypoalbuminemia- Primary Other disorders of plasma protein metabolism Elevated alkaline phosphatase level Other nonspecific abnormal serum enzyme levels Elevated LFTs Other abnormal blood chemistry Anemia, unspecified type Leukocytosis, unspecified type [facility] Diagnosis Onset Date Resolution Status Adult failure to thrive acut e Cellulitis acute History of DVT (deep vein thrombosis) acute Leg edema acute Rheumatoid arthritis acute Thrombocytopenia acute Weakness acute Anemia chronic [facility] Work Phone: Evaluation note* Diagnosis Onset Date [...] acute COPD (chronic obstructive pulmonary disease) chronic [facility] Work Phone: Evaluation note* Diagnosis Onset Date [...] resolved Edema resolved Failure to thrive resolved [facility] Work Phone: Evaluation note* Diagnosis Rheumatoid arthritis involving multiple sites with positive rheumatoid factor (HCC) Low back pain with right-sided sciatica, unspecified back pain laterality, unspecified chronicity [facility] Diagnosis Rheumatoid arthritis involving multiple sites with positive rheumatoid factor (HCC) Low back pain with right-sided sciatica, unspecified back pain laterality, unspecified chronicity Pseudogout Other disorder of calcium metabolism [facility]* Diagnosis Personal history of DVT (deep vein thrombosis)- Primary Personal history of venous thrombosis and embolism [facility]* Diagnosis Acute pain of right knee- Primary Chronic anticoagulation Long-term (current) use of 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 Hip pain, acute, left Pain and swelling of right lower leg [facility] Diagnosis Personal history of DVT (deep vein thrombosis)- Primary Personal history of venous thrombosis and embolism [facility]* Diagnosis Anemia, unspecified type- Primary Elevated LFTs Other abnormal blood chemistry COPD without exacerbation (HCC) Essential hypertension Unspecified essential hypertension Cough due to bronchospasm Acute bronchospasm Chronic anticoagulation Long-term (current) use of 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 Encounter for long-term current use of medication Gastric ulcer with hemorrhage, unspecified chronicity [facility]* Diagnosis Right knee pain, unspecified chronicity- Primary [facility]* Diagnosis FPC current use of anticoagulant therapy- Primary Long-term (current) use of 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 [facility]* Diagnosis COPD without exacerbation (HCC) [facility]* Diagnosis COPD without exacerbation (HCC) [facility]* Diagnosis Rheumatoid arthritis involving multiple sites with positive rheumatoid factor (HCC)- Primary Edema, unspecified type Encounter for therapeutic drug monitoring [facility]* Diagnosis Personal history of DVT (deep vein thrombosis)- Primary Personal history of venous thrombosis and embolism [facility]* Diagnosis Rheumatoid arthritis involving multiple sites with positive rheumatoid factor (HCC)- Primary Pain and swelling of right knee [facility]* Diagnosis Nonrheumatic aortic valve stenosis- Primary Aortic valve disorders Mitral valve stenosis, non-rheumatic Mitral valve disorders Essential hypertension Unspecified essential hypertension Pericardial effusion (noninflammatory) Leg edema Edema FPC current use of anticoagulant therapy Long-term (current) use of 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 [facility]* Diagnosis Personal history of DVT (deep vein thrombosis)- Primary Personal history of venous thrombosis and embolism [facility]* Diagnosis Disseminated histoplasmosis Histoplasmosis, unspecified without mention of manifestation [facility]* Diagnosis COPD without exacerbation (HCC) [facility]* Diagnosis Disseminated histoplasmosis- Primary Histoplasmosis, [...] of digestive system [facility] Diagnosis Edema, unspecified type- Primary [facility]* Diagnosis Personal history of DVT (deep vein thrombosis)- Primary Personal history of venous thrombosis and embolism [facility]* Diagnosis Anemia, unspecified type- Primary Bilateral lower extremity edema Edema Chronic anticoagulation Long-term (current) use of 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 Moderate to severe aortic stenosis Aortic valve disorders Disseminated histoplasmosis Histoplasmosis, unspecified without mention of manifestation Nodule of lower lobe of left lung Encounter for long-term current use of medication [facility]* Diagnosis Edema, unspecified type [facility]* Diagnosis Personal history of DVT (deep vein thrombosis)- Primary Personal history of venous thrombosis and embolism [facility]* Diagnosis Rheumatoid arthritis involving multiple sites with positive rheumatoid factor (HCC) Low back pain with right-sided sciatica, unspecified back pain laterality, unspecified chronicity [facility]* Diagnosis Disseminated histoplasmosis Histoplasmosis, unspecified without mention of manifestation [facility]* Diagnosis Aortic valve stenosis, etiology of cardiac valve disease unspecified- Primary Mitral valve stenosis, unspecified etiology Pericardial effusion Unspecified disease of pericardium Gastrointestinal hemorrhage, unspecified gastrointestinal hemorrhage type Rheumatoid arthritis with positive rheumatoid factor, involving unspecified site (HCC) Edema, unspecified type Blood loss anemia Iron deficiency anemia secondary to blood loss (chronic) [facility]* Diagnosis Aortic stenosis with bicuspid valve- Primary Pericardial effusion Unspecified disease of pericardium Essential hypertension Unspecified essential hypertension Chronic heart failure with preserved ejection fraction (HFpEF) (HCC) Mitral valve stenosis, non-rheumatic Mitral valve disorders Nonrheumatic tricuspid valve regurgitation Tricuspid valve disorders, specified as nonrheumatic [facility]* Diagnosis Personal history of DVT (deep vein thrombosis)- Primary Personal history of venous thrombosis and embolism [facility]* Diagnosis Chronic anticoagulation Long-term (current) use of 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 [facility]* Diagnosis Personal history of DVT (deep vein thrombosis)- Primary Personal history of venous thrombosis and embolism [facility] Diagnosis Acute cough [facility] Diagnosis Disseminated histoplasmosis Histoplasmosis, unspecified without mention of manifestation [facility] Diagnosis Personal history of DVT (deep vein thrombosis)- Primary Personal history of venous thrombosis and embolism documented in this encounter [facility] note* Diagnosis Personal history of DVT (deep vein thrombosis)- Primary Personal history of venous thrombosis and embolism [facility]* Diagnosis COPD without exacerbation (HCC) documented in this encounter [facility] note* Diagnosis Disseminated histoplasmosis- Primary Histoplasmosis, unspecified [...] antibiotics Counseling, unspecified [facility]* Diagnosis Nonrheumatic aortic valve stenosis- Primary Aortic valve disorders Encounter for preprocedural cardiovascular examination Pre-operative cardiovascular examination Aortic valve disorder Aortic valve disorders [facility]* Diagnosis Rheumatoid arthritis with positive rheumatoid factor, involving unspecified site (HCC)- Primary Nonrheumatic aortic valve stenosis Aortic valve disorders Nonrheumatic mitral valve stenosis Pericardial effusion Unspecified disease of pericardium Histoplasmosis Histoplasmosis, unspecified without mention of manifestation documented in this encounter [facility] note* Diagnosis Personal history of DVT (deep vein thrombosis)- Primary Personal history of venous thrombosis and embolism [facility]* Diagnosis Disseminated histoplasmosis Histoplasmosis, unspecified without mention of manifestation Nonrheumatic aortic valve stenosis Aortic valve disorders [facility]* Diagnosis Chronic heart failure with preserved [...] Aortic valve disorders [facility] Diagnosis Personal history of DVT (deep vein thrombosis)- Primary Personal history of venous thrombosis and embolism Nonrheumatic aortic valve stenosis Aortic valve disorders [facility] Diagnosis Nonrheumatic aortic valve stenosis- Primary Aortic valve disorders Encounter to establish care Other reasons for seeking consultation Pre-operative cardiovascular examination Mitral stenosis with insufficiency, rheumatic Mitral stenosis with insufficiency Rheumatoid arthritis with positive rheumatoid factor, involving unspecified site (HCC) Nonrheumatic aortic valve stenosis Aortic valve disorders [facility]* Diagnosis Nonrheumatic aortic valve stenosis Aortic valve disorders Nonrheumatic aortic valve stenosis Aortic valve disorders [facility] Diagnosis Nonrheumatic aortic valve stenosis Aortic valve disorders Encounter for preprocedural cardiovascular examination Pre-operative cardiovascular examination Nonrheumatic aortic valve stenosis Aortic valve disorders [facility]* Diagnosis Nonrheumatic aortic valve stenosis- Primary Aortic valve disorders [facility]* Diagnosis Nonrheumatic aortic valve stenosis- Primary Aortic valve disorders [facility]* Diagnosis Nonrheumatic aortic valve stenosis- Primary Aortic valve disorders [facility]* Diagnosis Nonrheumatic aortic valve stenosis Aortic valve disorders [facility]* Diagnosis Nonrheumatic aortic valve stenosis- Primary Aortic valve disorders [facility]* Diagnosis Nonrheumatic aortic valve stenosis- Primary Aortic valve disorders [facility]* Diagnosis Personal history of DVT (deep vein thrombosis)- Primary Personal history of venous thrombosis and embolism [facility] Diagnosis Nonrheumatic aortic valve stenosis- Primary Aortic valve disorders Aortic valve stenosis, etiology of cardiac valve disease unspecified [facility]* Diagnosis Nonrheumatic aortic valve stenosis- Primary Aortic valve disorders Aortic valve disorder Aortic valve disorders Aortic valve stenosis, etiology of cardiac valve disease unspecified [facility]* Diagnosis Encounter for preoperative anesthesiology assessment for cardiac surgery- Primary Aortic valve stenosis, etiology of cardiac valve disease unspecified [facility] Diagnosis Nonrheumatic aortic valve stenosis- Primary Aortic valve disorders Aortic valve stenosis, etiology of cardiac valve disease unspecified [facility]* Diagnosis Nonrheumatic aortic valve stenosis Aortic valve disorders Aortic valve disorder Aortic valve disorders Aortic valve stenosis, etiology of cardiac valve disease unspecified [facility]* Diagnosis Personal history of DVT (deep vein thrombosis)- Primary Personal history of venous thrombosis and embolism Aortic valve stenosis, etiology of cardiac valve disease unspecified [facility]* Diagnosis Nonrheumatic aortic valve stenosis- Primary Aortic valve disorders [facility]* Diagnosis Nonrheumatic aortic valve stenosis- Primary Aortic valve disorders S/P TAVR (transcatheter aortic valve replacement) Heart valve replaced by other means Chronic diastolic heart failure (HCC) Chronic diastolic heart failure [facility]* Diagnosis Disseminated histoplasmosis- Primary Histoplasmosis, unspecified [...] antibiotics Counseling, unspecified [facility]* Diagnosis Medicare annual wellness visit, subsequent- [...] by other means [facility]* Diagnosis Chronic heart failure with preserved ejection fraction (HCC)- Primary [facility]* Diagnosis COPD without exacerbation (HCC) [facility] Diagnosis Rheumatoid arthritis involving multiple sites with positive rheumatoid factor (HCC) Low back pain with right-sided sciatica, unspecified back pain laterality, unspecified chronicity [facility]* Diagnosis Rheumatoid arthritis involving multiple sites with positive rheumatoid factor (HCC) Low back pain with right-sided sciatica, unspecified back pain laterality, unspecified chronicity [facility]* Diagnosis Personal history of DVT (deep [...] of respiratory system [facility]* Diagnosis S/P TAVR (transcatheter aortic valve [...] of respiratory system [facility] in [facility] department note* Diagnosis Personal history of DVT (deep vein thrombosis)- Primary Personal history of venous thrombosis and embolism [facility] Author Laine Veras [facility] March 26, 2023 4:04pm Note Date/Time March 26, 2023 4 :05pm [facility] Medical Records Department [address] [place] [address] H&P Exam - Hospitalist 03/26/23 1551 MR#: [id number] Acct: [id number] Name: HAYDEE BUSTAMANTE Rep #:[id number] : 1945 77 From: Laine Veras MD PCP: Dr. Claudine Durán MD Status:AD M [facility] Location: [place] [id number] HPI - General General Date of Admission: 03/26/23 Date of Service: 03/26/23 Chief Complaint: Confusion, shortness of breath HPI Narrative HAYDEE BUSTAMANTE, is a 77-year-old female history of hypertension, GERD, RA, PE, severe aortic stenosis and moderate pericardial effusion, histoplasmosis presented to [facility] ED 03/26/2023 with shortness of breath andinability to care for self at home. Recently seen 03/21/2023 in [place] ED and transferred to [facility] due to concern for bowel perforation [...] outpatient basis. She was just discharged from [facility] yesterday and today legs are weeping and she is urinating on herself. She was discharged home on Cipro and Flagyl and itraconazole twice daily as well as 4 more days of dexamethasone and given Imodium for diarrhea. She was instructed to hold her hydrochlorothiazide and irbesartan due to kidney function. In [facility] ED patient 96% on room air [...] reports that she got home yesterday from [facility] and was talking about the fact that [...] oriented but very hard to direct inconversation. [facility] Medical History (Updated 03/26/23 @ 15:59 [...] Q24H 03/19/23 [History Last Taken Unknown] vitamins A,C,R-lscz-slgixd 2,148 mcg-113 mg-45 mg-17.4 mg tablet (PreserVision [...] 80.3 H, Lymph % (Auto) 6.3 L, Maury % (Auto) 9.6, Eos % (Auto) 0.0, Baso % (Auto) 0.1, Absolute Neuts (auto) 13.6 H, Absolute Lymphs (auto) 1.06, Nucleated RBC % 0.1, Differential Comment SCANNED, Diff Path Review June, PT 33.3 H, INR 3.2, Sodium 135 [...] for bowel perf treated conservatively -Treated at [facility][1] -On cipro/flagyl, will continue this # Disseminated histoplasmosis -Continue itraconazole twice daily -Patient to follow-up with a Dr. Hart in 3 months # Recent COVID-19 -4 more days of dexamethasone -Tested positive here at the end of February #Hx and mod pericardial effusion -Seen at [facility] and pt advised to f/u outpt -Will [...] Veras MD Charges/Coding Visit Charges Inpatient E&M: 96020 Init Hosp L2 03/26/23 1604 <Electronically signed by Laine Veras MD> Cosigner Signature (if applicable): CC: Dr. Claudine Durán MD; Dr. Laine Veras MD~ Signed [facility] Work Phone: History and physical note Author Laine Veras [facility] March 31, 2023 8:59pm Note Date/Time March 31, 2023 8:20pm [facility] Medical Records Department [address] [place] [address] [place] [address] H&P Exam - Hospitalist 03/31/232011 MR#: [id number] Acct: [id number] Name: HAYDEE BUSTAMANTE Rep #:[id number] : 1945 77 From: Laine Veras MD PCP: Dr. Claudine Durán MD Status:AD M IN Location: [facility] [id number] HPI - General General Date of Admission: 03/31/23 Date of Service: 03/31/23 Chief Complaint: BLE edema and weeping HPI Narrative HAYDEE BUSTAMANTE, is a 77-year-old female history of COPD, Severe . GERD. DVT and PEon Coumadin, histoplasmosis of the lung, RA who presented to [facility] ED 03/31/2023 with bilateral lower extremity edema. She was seen here 03/28/2023 with lower extremity edema. She was initially seen here 03/26/2023 for shortness of breath and inability to care for herself at home after a recent hospital stay at [facility] from which she was discharged on Cipro [...] is unsure if she's taking her coumadin [facility] Medical History (Updated 03/31/23 @ 20:42 [...] Q24H 03/19/23 [History Last Taken Unknown] vitamins A,C,D-oetv-ssdmfa 2,148 mcg-113 mg-45 mg-17.4 mg tablet (PreserVision [...] 90.8 H, Lymph % (Auto) 3.0 L, Maury % (Auto) 5.0, Eos % (Auto) 0.1, [...] for bowel perf treated conservatively -Treated at [facility][1] -s/p cipro and flagyl, no present abd complaints # Disseminated histoplasmosis -Continue itraconazole twice daily -Patient to follow-up with a Dr. Hart in 3 months # Recent COVID-19 -Tested positive here end of February -No resp complaints #Hx COPD -Continue inhalers #Hx and mod pericardial effusion -Seen at [facility] and pt advised to f/u outpt [...] documentation, 78Minutes Charges/Coding Visit Charges Inpatient E&M: 84143 Init Hosp L3 03/31/232058 <Electronically signed by Laine Veras MD> Cosigner Signature (if applicable): CC: Dr. Claudine Durán MD; Dr. Laine Veras MD~ Signed [facility] Work Phone: History and physical note Author Erasmo House [facility] Note Date/Time August 23, 2024 11:12 am [facility] Medical Records Department [address] [place] [address] H&P Exam - Hospitalist 08/23/24 1023 MR#: [id number] Acct: [id number] Name: HAYDEE BUSTAMANTE Rep #:[id number] : 1945 79 From: Erasmo Castañeda PCP: Dr. Claudine Durán MD Status:AD M ADAIR Location: [facility] [id number] HPI - General General Date of Admission: 08/23/24 Date of Service: 08/23/24 Chief Complaint: Fall over left hand and left wrist fracture. HPI Narrative HAYDEE BUSTAMANTE, is a 79 F came to ED after she had a fall about 1:30 AM in the bedroom while she woke up to go to bathroom. She fell on her left side and alsohit her head. She has bruise around the left eye, left wrist pain and swelling. She called to seek help around 6 AM and brought to ED by EMS. She denies any headache. Mechanism of fall is unclear she is not sure how she fell down. She denies lightheaded dizziness chest discomfort shortness of breath, vertigo or loss of consciousness. Denies prior history of seizure. In ED she was found fracture of left distal radius, facial bruise and therefore admitted. Vitals lab and x-ray done in the ED were reviewed. [facility] Medical History Hypertension GERD (gastroesophageal reflux disease) Pericardial effusion CHF (congestive heart failure) Wears glasses Walker as ambulation aid Ambulates [...] venous thrombosis) Pulmonary embolism Colitis COVID-19 Histoplasmosis Home Medications ?Medication ?Instructions ?Recorded ?Last Taken ?Type multivitamin (Daily Multi-Vitamin 1 tab PO DAILY suppl ement 03/19/23 10/01/23 History tablet) vitamins A,C,L-rgpo-yahzjm 2,148 2 tab PO BID eye heal th 03/19/23 10/01/23 History mcg-113 mg-45 mg-17.4 mg tablet (PreserVision AREDS) gabapentin 300 mg capsule 300 mg PO Q12 nerve pain #0 caps 04/05/23 10/01/23 Rx potassium chloride 20 mEq 20 meq PO BIDCM #0 tabs 03/0 10/1210/01/23 Rx tablet,extended release(part/cryst) fluticasone propionate 50 1 spray intranasal DAILY 10/02/23 History mcg/actuation nasal spray,suspension furosemide 20 mg tablet 20 mg PO DAILY PRN edema 10/01/23 History tiotropium bromide 2.5 2 puff inhalation DAILY 07/2110/02/23 History mcg/actuation mist for inhalation (Spiriva Respimat) diclofenac sodium 1 % topical gel 4 g topical BID PRN PRN knee pain 08/18/23 10/02/23 Rx (Voltaren Arthritis Pain) #100 grams omega 4-ulg-xwa-fish oil 1,200 mg 1 cap PO DAILY 09/30 Unknown History (144 mg-216 mg) capsule (Fish Oil) albuterol sulfate 90 mcg/actuation 2 puff inhalation Q 4H PRN PRN 06/13/24 Unknown History aerosol inhaler shortness of breath or wheez ing cholecalciferol (vitamin D3) 25 25 mcg PO QDAY 5 Unknown History mcg (1,000 unit) capsule fluticasone 250 mcg-salmeterol 50 1 inh inhalation BID 06/13/24 Unknown History mcg/dose blistr powdr for inhalation (Tony Inhub) folic acid 0.8 mg capsule 0.8 mg PO QDAY 06/13/24 Unkn own History methotrexate sodium 2.5 mg tablet 10 mg PO QWEEK 06/13 Unknown History sulfasalazine 500 mg 1 g PO BID 06/13/24 Unknown History tablet,delayed release acetaminophen 500 mg tablet 1,000 mg PO TID Pain Score 1-10 06/20/24 Unknown History clindamycin HCl 300 mg capsule 600 mg (2 x 300 mg) PO ONCE #2 caps 06/20/24 Unknown Rx ferrous sulfate 325 mg (65 mg 325 mg PO QDAY 06/20/24 Unknown History iron) tablet metoprolol succinate 25 mg 25 mg PO QDAY #30 tabs 06/21 Unknown Rx tablet,extended release 24 hr folic acid 1 mg tablet 1 mg PO DAILY 08/23/24 Unkno wn History warfarin 1 mg tablet mg PO 08/23/24 Unknown Histo ry warfarin 5 mg tablet See Rx Instructions .Route . COMPLEX 08/23/24 Unknown History Held on 10/01/23. Instructions: ON HOLD FOR COLONOSCOPY Allergy/AdvReac Type Severity Reaction Status Date / Time Penicillins Allergy Severe Anaphylaxis Verified 06/20/24 10:10 Surgical History History of transcatheter aortic valve replacement (TAVR) History of back surgery History of esophagogastroduodenoscopy (EGD) History of tonsillectomy History of embolic filter insertion Hx of foot surgery Social History household members: none Smoking Status: Former smoker alcohol intake: never substance use type: does not use ROS ROS Narrative Constitutional: Chronic history of RA and arthritis. Denies acute onset of fatigue and weakness. No fever. HEENT: Reports systems reviewed and no addt'l complaints, except as documented Respiratory/Chest: No acute shortness of breath or respiratory distress or wheezing. COPD and history of histoplasmosis. Completed itraconazole for 1 year. CVS: No chest pain or tightness or pressure. Gastrointestinal: Denies coffee ground emesis, hematemesis or vomiting Genitourinary: Denies burning urination or new urinary tract symptoms Musculoskeletal: Chronic knee arthritis. Rest as described in HPI Neurologic: Denies seizure-like symptoms. No syncope. skin: No ulcer. No rash Endocrinology: Reports systems reviewed and no addt'l complaints, except as documented Hematologic/Lymphatic: Reports systems reviewed and no addt'l complaints, exceptas documented Rest 14 ROS are negative except as mentioned in HPI Vital Signs Vital Signs Vital Signs: 08/23/24 07:18 08/23/24 07:31 08/23/24 09:18 Temperature 98.6 F Temperature Source Oral Pulse Rate 84 64 Respiratory Rate 18 18 Respiratory Effort Normal Respiratory Depth Normal Respiratory Pattern Normal Blood Pressure 113/63 134/76 H Blood Pressure Mean 79 95 Pulse Ox 98 98 Oxygen Delivery Method Room Air Room Air Room Air Weight Weight: 138 lb 7.205 oz Body Mass Index (BMI) 24.5 Physical Exam Narrative General: Alert, Oriented x3, Cooperative HEENT: Atraumatic, PERRLA, EOMI, Normocephalic. Oral: Oral mucosa moist no Gingival or Mucosal Lesions/ Ulcerations Neck: Supple, No JVD, Negative Carotid Bruits Chest wall/Lungs: Air entry diminished in bilateral lung bases. Very fine expiratory rhonchi. Cardiovascular: Regular rate and rhythm, Normal S1,S2, No obvious M/G/R Abdomen: Bowel Sounds Present, Soft, Non Tender, Non-Distended : No dysuria. No renal angle tenderness. No suprapubic tenderness. Extremities: No edema, Capillary Refill Less than 3 Seconds Skin: Left facial forearm bandaged with Daniella wrap bandage. Mild swelling and tenderness. Musculoskeletal: Bilateral knee valgus deformity with degenerative arthritis. Chronic RA with bony deformity of wrist and hand joints. Left hand and wrist issplinted. Neurological: Cranial nerves II-XII grossly intact, DTR 2+/4. No acute focal neurological deficit. Psych/Mental Status: Normal Affect, Appropriate. Results Lab / Micro Data 08/23/24 07:45 08/23/24 07:45 Labs: Laboratory Results - last 24 hr 08/23/24 07:45: WBC 7.9, RBC 3.52 L, Hgb 11.3 L, Hct 33.9 L, MCV 96.3, MCH 32.1 H, MCHC 33.3, RDW Std Deviation 58.6 H, RDW Coeff of Catarino 17.0 H, Plt Count 182, MPV 10.9, Immature Gran % (Auto) 0.500, Neut % (Auto) 82.3 H, Lymph % (Auto) 8.1L, Maury % (Auto) 8.6, Eos % (Auto) 0.1, Baso % (Auto) 0.4, Absolute Neuts (auto)6.5, Absolute Lymphs (auto) 0.64 L, Nucleated RBC % 0, PT 15.5 H, INR 1.2, Sodium 140, Potassium 3.9, Chloride 104, Carbon Dioxide 22.1, Anion Gap 14, BUN 22 H, Creatinine 0.63 L, Estim Creat Clear Calc 48.72 L, Est GFR (MDRD) Non-Af 91, BUN/Creatinine Ratio 34.8 H, Glucose 116 H, Calcium 9.2, Total Creatine Kinase 128 Imaging Radiology Impression Wrist X-Ray 08/23/24 07:31 IMPRESSION: Comminuted impacted fracture of the distal radius with intra-articular extension. Reading Location: [facility] Brain CT 08/23/24 08:06 IMPRESSION: 1. Generalized brain atrophy. 2. Small vessel ischemic/degenerative changes. 3. No acute intracranial hemorrhage, midline shift or mass effect. If symptoms persist, further evaluation with MRI is recommended. Reading Location: [facility] Assessment & Plan Assessment/Plan (1) Closed fracture of distal end of left radius: (2) Closed head injury without concussion: PLAN: Plan This 72-year-old female was brought to ED when she fell down, mechanism unclear resulting into left wrist fracture. 1. Acute debility of ADL due to closed fracture of distal end of left radius/Colles' fracture: Patient is being admitted on MedSur floor. 3 views ofx-ray left wrist x-ray reviewed shows comminuted impacted fracture of distal radius with intra-articular extension. ED patient is splinted in the left wristbut she has trouble in functioning and doing her house chores as she lives alone. Orthopedic surgeon Dr. Molina consulted by ED physician. Pain control PT and OT ordered. 2. Closed head injury without concussion from fall: Patient denies LOC. CT brain reviewed does not show acute intracranial abnormality. Generalized brain atrophy. 3. Severe aortic stenosis status post TAVR: On metoprolol succinate 25 mg daily, furosemide 20 mg daily 4. Chronic DVT status post IVC filter: Patient on warfarin. INR is 1.2. Continue home regimen of warfarin. 5 mg on Sunday and and 6 mg on rest of the days. 5. COPD/history of histoplasmosis twice: Patient completed treatment of itraconazole for 1 year for histoplasmosis about few months ago. Currently not in COPD exacerbation. Continue home maintenance inhaler and as needed albuterol. Incentive spirometry and PEP. 6. Chronic RA and degenerative arthritis: Patient on methotrexate, folic acid, sulfasalazine. She is not on biologic. She also has chronic degenerative arthritis of knees. She can still walk. 7. Anemia of chronic disease: H&H 11.3/34%. MCV 96.3. Platelet count 182K. Patient was last admitted in August 08 4 GI bleed. EGD on 08/09/2023 showed normalesophagus, small hiatus hernia, nonbleeding duodenal ulcer with no stigmata of bleeding. 3 bleeding in the dysplastic lesion seen jejunum treated with heater probe. Patient on ferrous sulfate. Vitamin C added. Continue folic acid. 8. DVT prophylaxis: INR 1.2, subtherapeutic. Continue home regimen. Monitor INR daily Living will/advanced directive/end of life care: Patient does have living will or advanced directive. She is a . After discussion of benefits/risks procedures involved with full code, DNR CC arrest and DNR CC, the patient optedfor full code. Patient does want artificial life support including intubation, tube feed, ventilator and/chest compression, central venous catheter, vasopressor and DC shock if needed Total time spent in [id number] encounter in discussion of advanced directive 17 minutes. Laboratory Results 08/23/24 07:45: WBC 7.9, RBC 3.52 L, Hgb 11.3 L, Hct 33.9 L, MCV 96.3, MCH 32.1 H, MCHC 33.3, RDW Std Deviation 58.6 H, RDW Coeff of Catarino 17.0 H, Plt Count 182, MPV 10.9, Immature Gran % (Auto) 0.500, Neut % (Auto) 82.3 H, Lymph % (Auto) 8.1L, Maury % (Auto) 8.6, Eos % (Auto) 0.1, Baso % (Auto) 0.4, Absolute Neuts (auto)6.5, Absolute Lymphs (auto) 0.64 L, Nucleated RBC % 0, PT 15.5 H, INR 1.2, Sodium 140, Potassium 3.9, Chloride 104, Carbon Dioxide 22.1, Anion Gap 14, BUN 22 H, Creatinine 0.63 L, Estim Creat Clear Calc 48.72 L, Est GFR (MDRD) Non-Af 91, BUN/Creatinine Ratio 34.8 H, Glucose 116 H, Calcium 9.2, Total Creatine Kinase 128 Clinical Impression(s) from Imaging Studies Wrist X-Ray 08/23/24 07:31 IMPRESSION: Comminuted impacted fracture of the distal radius with intra-articular extension. Reading Location: [facility] Brain CT 08/23/24 08:06 IMPRESSION: 1. Generalized brain atrophy. 2. Small vessel ischemic/degenerative changes. 3. No acute intracranial hemorrhage, midline shift or mass effect. If symptoms persist, further evaluation with MRI is recommended. Reading Location: [facility] Charges/Coding Visit Charges Inpatient E&M: 18829 Init Hosp L3 Procedures Hospitalists Procedures: 93264 Advncd Care Plan 30 Min 08/23/24 1112 <Electronically signed by Erasmo House MD> Cosigner Signature (if applicable): CC: Dr. Claudine Durán MD; Dr. Erasmo House MD~ Signed [facility] Work Phone: Hospital Discharge instructions Additional Instructions [...] higher or systolic number then stop the medication.[facility] Work Phone: Reason for referral (narrative)* Outpatient Procedure (Routine) - Authorized Specialty Diagnoses / Procedures Referred By Divya reis Referred To Contact [facility] [place] Diagnoses Aortic stenosis with bicuspid valve Essential hypertension Procedures ECHO ECHO TTHRC R-T 2D W/WOM-MODE COMPL SPEC&COLR D William Messina Jeff, [address] [place] [address] [facility] [place] [id number] Referral ID Status Reason Start Date Expiration Date Visits Requested Visits Authorized [id number] Authorized Auto-Generat ed Referral 08/12/2021 08/12/2022 1 1 * Outpatient Procedure (Routine) - Closed Specialty Diagnoses / Procedures Referred By Divya reis Referred To Contact [facility] [place] Diagnoses Aortic stenosis with bicuspid valve Essential hypertension Procedures ECG COMPLETE ECG ROUTINE ECG W/LEAST 12 LDS W/I&R William Messina, [address] [place] [address] [place] [id number] Referral ID Status Reason Start Date Expiration Date V isits Requested Visits Authorized [id number] Closed Auto-Generate d Referral 08/12/2021 08/12/2022 1 1 [facility] for referral (narrative)* Diagnostic Procedure Only (Routine) - Closed Specialty Diagnoses / Procedures Referred By Divya reis Referred To Contact [facility] Diagnoses Ulcer of toe of left foot, limited to breakdown of skin (HCC) Hammer toe of left foot Procedures XR FOOT GENERAL 3V AP/LAT/OBL LEFT RADEX FOOT COMPLETE MINIMUM 3 VIEWS Chacho Louise [address] [place] [address] Xr Imaging Referral ID Status Reason Start Date Expiration Date V isits Requested Visits Authorized [id number] Closed Auto-Generate d Referral 10/18/2021 11/17/2022 1 1 [facility] for referral (narrative)* Diagnostic Procedure Only (Routine) - Closed Specialty Diagnoses / Procedures Referred By Divya reis Referred To Contact XR IMAGING Diagnoses Ulcer of toe of left foot, limited to breakdown of skin (HCC) Hammer toe of left foot Procedures XR FOOT GENERAL 3V AP/LAT/OBL LEFT RADEX FOOT COMPLETE MINIMUM 3 VIEWS Chacoh Louise [address] [place] [address] Xr Imaging Referral ID Status Reason Start Date Expiration Date V isits Requested Visits Authorized [id number] Closed Auto-Generate d Referral 10/18/2021 11/17/2022 1 1 [facility] for referral (narrative)* Outpatient Procedure (Routine) - Authorized Specialty Diagnoses / Procedures Referred By Divya reis Referred To [facility] Diagnoses Aortic stenosis with bicuspid valve Procedures ECHO ECHO TTHRC R-T 2D W/WOM-MODE COMPL SPEC&COLR D Rachelle Schulte [employer]KER.SUSTAINABILITY CONSULTANT [address] [address] [facility] [place] [address] [place] [address] Referral ID Status Reason Start Date Expiration Date Visits Requested Visits Authorized [id number] Authorized Auto-Generat ed Referral 08/29/2022 08/29/2023 1 1 [facility] for referral (narrative)* Diagnostic Procedure Only (Routine) - Authorized Specialty Diagnoses / Procedures Referred By Divya reis Referred To Contact [facility] Diagnoses Encounter for screening mammogram for breast cancer Procedures SABINO SCREENING W ALIZE SCREENING DIGITAL BREAST TOMOSYNTHESIS BI SCREENING MAMMOGRAPHY BI 2-VIEW BREAST INC Jimbo Egan, [employer]T MAKER.SALES INCENTIVE ANALYST [address] [place] [address] [facility] [address] [place] [address] Referral ID Status Reason Start Date Expiration Date Visits Requested Visits Authorized [id number] Authorized Auto-Generat ed Referral 10/27/2022 11/26/2023 1 1 * Diagnostic Procedure Only (Routine) - Pending Review Specialty Diagnoses / Procedures Referred By Contac t Referred To Contact [facility] Diagnoses Encounter for screening mammogram for breast cancer Procedures SABINO SCREENING SCREENING MAMMOGRAPHY BI 2-VIEW BREAST INC CAD Jimbo Swanson APRN.SALES INCENTIVE ANALYST [address] [place] [address] [facility] [address] [place] [address] Referral ID Status Reason Start Date Expiration Date Visits Requested Visits Authorized [id number] Pending Review Auto-Generat ed Referral 10/27/2022 11/26/2023 1 1 [facility] for referral (narrative)* Diagnostic Procedure Only (Routine) - Closed Specialty Diagnoses / Procedures Referred By Francoisac t Referred To Contact [facility] Diagnoses Encounter for screening mammogram for breast cancer Procedures SABINO SCREENING W ALIZE SCREENING DIGITAL BREAST TOMOSYNTHESIS BI SCREENING MAMMOGRAPHY BI 2-VIEW BREAST INC CAD Jimbo Swanson APRN.SALES INCENTIVE ANALYST [address] [place] [address] [facility] [address] [place] [address] Referral ID Status Reason Start Date Expiration Date V isits Requested Visits Authorized [id number] Closed Auto-Generate d Referral 10/27/2022 11/26/2023 1 1 [facility] for referral (narrative)* Outpatient Procedure (Urgent) - Authorized Specialty Diagnoses / Procedures Referred By Francoisac t Referred To Contact [facility] Diagnoses Acute pain of right knee Pain and swelling of right lower leg Procedures US LEG VEIN DVT UNL VAS LAB DUP-SCAN XTR VEINS UNILATERAL/LIMITED STUDY Jimbo Swanson APRN.SALES INCENTIVE ANALYST [address] [place] [address] [facility] [place] [address] [place] [address] Referral ID Status Reason Start Date Expiration Date Visits Requested Visits Authorized [id number] Authorized Auto-Generat ed Referral 07/10/2023 07/09/2024 1 1 [facility] for referral (narrative)* Diagnostic Procedure Only (Routine) - Pending Review Specialty Diagnoses / Procedures Referred By Contac t Referred To Contact XR IMAGING Diagnoses Right knee pain, unspecified chronicity Procedures XR LEG FRONTAL HIP TO ANKLE MECHANICAL AXIS BONE LENGTH STUDIES London Short PA-C [address] [place] [address] Xr Imaging [id number] Referral ID Status Reason Start Date Expiration Date Visits Requested Visits Authorized [id number] Pending Review Auto-Generat ed Referral 07/18/2023 08/15/2024 1 1 * Diagnostic Procedure Only (Routine) - Pending Review Specialty Diagnoses / Procedures Referred By Contac t Referred To Contact [facility] IMAGING Diagnoses Right knee pain, unspecified chronicity Procedures XR KNEE GENERAL 4V AP BOTH/PA BOTH/LAT/MERC RIGHT RADIOLOGIC EXAM KNEE COMPLETE 4/MORE VIEWS London Short PA-C [address] [place] [address] Xr Imaging [id number] Referral ID Status Reason Start Date Expiration Date Visits Requested Visits Authorized [id number] Pending Review Auto-Generat ed Referral 07/18/2023 08/15/2024 1 1 [facility] for referral (narrative)* Outpatient Procedure (Routine) - Pending Review Specialty Diagnoses / Procedures Referred By Contac t Referred To Contact [facility] Diagnoses Nonrheumatic aortic valve stenosis Mitral valve stenosis, non-rheumatic Essential hypertension Pericardial effusion (noninflammatory) Procedures ECHO LIMITED ECHO TRANSTHORAC R-T 2D W/WO M-MODE REC William Miller, DO [address] [place] [address] [facility] [address] [place] [address] Referral ID Status Reason Start Date Expiration Date Visits Requested Visits Authorized [id number] Pending Review Auto-Generat ed Referral 08/27/2023 08/26/2024 1 1 [facility] for referral (narrative)* Outpatient Procedure (Routine) - Authorized Specialty Diagnoses / Procedures Referred By Contac t Referred To Contact [facility] Diagnoses Pericardial effusion Procedures ECHO LIMITED ECHO TRANSTHORAC R-T 2D W/WO M-MODE REC Bibi Toscano APRN.SUSTAINABILITY CONSULTANT [address] [place] [address] [place] [phone] Referral ID Status Reason Start Date Expiration Date Visits Requested Visits Authorized [id number] Authorized Auto-Generat ed Referral 4 10/17/2024 1 1 [facility] for referral (narrative)* Outpatient Procedure (Routine) - New Request Specialty Diagnoses / Procedures Referred By Contac t Referred To Contact [facility] Diagnoses Nonrheumatic aortic valve stenosis Aortic valve disorder Procedures ECG COMPLETE ECG ROUTINE ECG W/LEAST 12 LDS W/I&R Monica Aguila APRN.SUSTAINABILITY CONSULTANT [address] [place] [address] [place] [phone] Referral ID Status Reason Start Date Expiration Date Visits Requested Visits Authorized [id number] New Request Auto-Generat ed Referral 4 01/07/2025 1 1 * Outpatient Procedure (Routine) - New Request Specialty Diagnoses / Procedures Referred By Divya reis [facility] Diagnoses Nonrheumatic aortic valve stenosis Aortic valve disorder Procedures ECHO ECHO TTHRC R-T 2D W/WOM-MODE COMPL SPEC&COLR D Monica Aguila APRN.SUSTAINABILITY CONSULTANT [address] [place] [address] [facility] [place] [address] [place] [address] Referral ID Status Reason Start Date Expiration Date Visits Requested Visits Authorized [id number] New Request Auto-Generat ed Referral 4 01/07/2025 1 1 * Diagnostic Procedure Only (Routine) - New Request Specialty Diagnoses / Procedures Referred By Divya reis Referred To Contact [facility] Diagnoses Nonrheumatic aortic valve stenosis Procedures NM SPECT/CT CARDIAC AMYLOID RP LOCLZJ MARY SPECT W/CT 1 AREA 1 DAY IMAGING Monica Aguila APRN.SUSTAINABILITY CONSULTANT [address] [place] [address] [facility] [address] [place] [address] Referral ID Status Reason Start Date Expiration Date Visits Requested Visits Authorized [id number] New Request Auto-Generat ed Referral 4 02/06/2025 1 1 * MRI/CT (Routine) - New Request Specialty Diagnoses / Procedures Referred By Divya reis Referred To Contact CT IMAGING Diagnoses Nonrheumatic aortic valve stenosis Encounter for preprocedural cardiovascular examination Procedures CTA CHEST/ABD/PEL (GATED) W IVCON CT ANGIOGRAPHY CHEST W/CONTRAST/NONCONTRAST CT ANGIO ABD&PLVIS CNTRST MTRL W/WO CNTRST IMGES Monica Aguila APRN.SUSTAINABILITY CONSULTANT [address] [place] [address] Ct Imaging [place] [address] Referral ID Status Reason Start Date Expiration Date Visits Requested Visits Authorized [id number] New Request Auto-Generat ed Referral 4 02/06/2025 1 1 * Outpatient Procedure (Routine) - New Request Specialty Diagnoses / Procedures Referred By Divya reis Referred [facility] Diagnoses Nonrheumatic aortic valve stenosis Procedures LUNG DIFFUSION CAPACITY (DLCO) DIFFUSING CAPACITY Monica Aguila APRN.SUSTAINABILITY CONSULTANT [address] [place] [address] [place] [address] Referral ID Status Reason Start Date Expiration Date Visits Requested Visits Authorized [id number] New Request Auto-Generat ed Referral 4 02/06/2025 1 1 * Outpatient Procedure (Routine) - New Request Specialty Diagnoses / Procedures Referred By Divya reis Referred [facility] Diagnoses Nonrheumatic aortic valve stenosis Procedures SPIROMETRY BASELINE ONLY SPMTRY W/VC EXPIRATORY [place] W/WO MXML VOL VNTJ Monica Aguila APRN.SUSTAINABILITY CONSULTANT [address] [place] [address] [place] [address] Referral ID Status Reason Start Date Expiration Date Visits Requested Visits Authorized [id number] New Request Auto-Generat ed Referral 4 02/06/2025 1 1 [facility] Diagnostic Procedure Only (Routine) - Closed Specialty Diagnoses / Procedures Referred By Divya reis Referred To Contact [facility] Diagnoses Nonrheumatic aortic valve stenosis Procedures NM SPECT/CT CARDIAC AMYLOID RP LOCLZJ MARY SPECT W/CT 1 AREA 1 DAY IMAGING Monica Aguila APRN.SUSTAINABILITY CONSULTANT [address] [place] [address] [facility] [address] [place] [phone] Referral ID Status Reason Start Date Expiration Date V isits Requested Visits Authorized [id number] Closed Auto-Generate d Referral 01/08/2024 02/06/2025 1 1 [facility] for referral (narrative)* Transition of Care (Routine) - Authorized Specialty Diagnoses / Procedures Referred By Divya t Referred To Contact [facility] [place] Procedures CARDIOVASCULAR MEDICINE OP FOLLOW UP APPT ORDER Monica Aguila APRN.CNP [address] [place] [address] Phone: tel: fax: [facility] [place] [address] [place] [address] Referral ID Status Reason Start Date Expiration Date Visits Requested Visits Authorized [id number] Authorized PCP Requested Referral 04/30/2024 04/30/2025 1 1 [facility] for referral (narrative)* Transition of Care (Routine) - Authorized Specialty Diagnoses / Procedures Referred By Contfabian t Referred To [facility] Procedures CARDIOVASCULAR MEDICINE OP [place] [address] [place] [address] Phone: tel: [facility] [place] [address] [place] [phone] Referral ID Status Reason Start Date Expiration Date Visits Requested Visits Authorized [id number] Authorized PCP Requested Referral 05/05/2024 05/05/2025 1 1 [facility] for referral (narrative)No reason for referral information availableWFulton [facility] Work Phone: Reason for referral (narrative)* Transition of Care (Routine) - Authorized Specialty Diagnoses / Procedures Referred By Divya reis Referred To [facility] Procedures CARDIOVASCULAR MEDICINE OP FOLLOW UP APPT ORDER Brissa Chester APRN.CNP [address] [place] [address] Phone: tel: fax: [facility] [place] [address] [place] [address] Referral ID Status Reason Start Date Expiration Date Visits Requested Visits Authorized [id number] Authorized PCP Requested Referral 07/22/2024 07/22/2025 1 1 [facility] for visit Narrative* Diagnostic Procedure Only (Routine) - Closed Specialty Diagnoses / Procedures Referred By Divya reis Referred To Contact XR IMAGING Diagnoses Ulcer of toe of left foot, limited to breakdown of skin (HCC) Hammer toe of left foot Procedures XR FOOT GENERAL 3V AP/LAT/OBL LEFT RADEX FOOT COMPLETE MINIMUM 3 VIEWS Chacho Louise [address] [place] [address] Xr Imaging Referral ID Status Reason Start Date Expiration Date V isits Requested Visits Authorized [id number] Closed Auto-Generate d Referral 10/18/2021 11/17/2022 1 1 [facility] for visit Narrative* Diagnostic Procedure Only (Routine) - Closed Specialty Diagnoses / Procedures Referred By Divya reis Referred To Contact BR IM[facility] Diagnoses Encounter for screening mammogram for breast cancer Procedures SABINO SCREENING W ALIZE SCREENING DIGITAL BREAST TOMOSYNTHESIS BI SCREENING MAMMOGRAPHY BI 2-VIEW BREAST INC Jimbo Egan, CONNIE.SALES INCENTIVE ANALYST [address] [place] [address] [facility] [address] [place] [address] Referral ID Status Reason Start Date Expiration Date V isits Requested Visits Authorized [id number] Closed Auto-Generate d Referral 10/27/2022 11/26/2023 1 1 [facility] for visit Narrative* Diagnostic Procedure Only (Urgent) - Closed Specialty Diagnoses / Procedures Referred By Contac t Referred To Contact XR IMAGING Diagnoses Hip pain, acute, left Procedures XR HIP GENERAL 3V PELV/AP/LAT LEFT RADEX HIP UNILATERAL WITH PELVIS 2-3 VIEWS Ernie Belcher LEATHER CARTRIDGE BELT MAKER.SUSTAINABILITY CONSULTANT [address] [place] [address] [place] [address] Referral ID Status Reason Start Date Expiration Date V isits Requested Visits Authorized [id number] Closed Auto-Generate d Referral 12/31/2021 01/30/2023 1 1 [facility] for visit Narrative* Diagnostic Procedure Only (Routine) - Closed Specialty Diagnoses / Procedures Referred By Contac t Referred To Contact [facility] Diagnoses Nonrheumatic aortic valve stenosis Procedures NM SPECT/CT CARDIAC AMYLOID RP LOCLZJ MARY SPECT W/CT 1 AREA 1 DAY IMAGING Monica Aguila APRN.SUSTAINABILITY CONSULTANT [address] [place] [address] [facility] [address] [place] [address] Referral ID Status Reason Start Date Expiration Date V isits Requested Visits Authorized [id number] Closed Auto-Generate d Referral 01/08/2024 02/06/2025 1 1 [facility] Summary Purpose Family History No Family History Records FoundNo Family History Records FoundNo Family History Records FoundNo Family History Records FoundNo Family History Records FoundNo Family History Records Found Advance Directives No Advanced Directives Records FoundDocuments on File Type Date Recorded 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 Advance Directive(s) 02/25/2018 1:19 PM [...] Documents on File Type Date Recorded 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 Advance Directive(s) 03/24/2019 12:16 PM Advance Directive(s) 03/02/2018 11:28 AM Advance Directive(s) 02/25/2018 1:11 PM Advance Directive(s) 02/25/2018 1:19 PM Advance Directive(s) 01/25/2018 9:15 AM Advance Directive(s) 07/30/2017 2:22 PM Documents on File Type Date Recorded 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 Advance Directive(s) 03/24/2019 12:16 PM Advance Directive(s) 03/02/2018 11:28 AM Advance Directive(s) 02/25/2018 1:11 PM Advance Directive(s) 02/25/2018 1:19 PM Advance Directive(s) 01/25/2018 9:15 AM Advance Directive(s) 07/30/2017 2:22 PM Latest Code Status on File Code Status Date Activated Date Inactivated Comments Full Code 03/02/2018 6:22 PM 03/03/2018 4:33 PM Documents on File Type Date Recorded 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 Advance Directive(s) 02/25/2018 1:19 PM [...] Will No March 19 10:06am Power of Sales Incentive Analyst No March 19, 2023 10:06am Latest Code [...] Name: Milena mckeon and Padmini Chang (Friends) Advance Directive Response Recorded Date/ Time Living Will No March 28 4:31pm Power of Sales Incentive Analyst No March 28, 2023 4:31pm Name of Medical Power of Sales Incentive Analyst diallo araiza March 26, 2023 5:06pm Advance Directive Response Recorded Date/ Time Living Will No March 31 5:01pm Power of Sales Incentive Analyst No March 31, 2023 5:01pm Name of Medical Power of Sales Incentive Analyst diallo elainediandra March 26, 2023 5:06pm Advance Directive Response Recorded Date/ Time Name of Medical Power of Sales Incentive Analyst Milena Elainediandra and Padmini Chang March 31, 2023 9:38pm Living Will Yes April 04 4:12pm Power of Sales Incentive Analyst Yes April 04, 2023 4:12pm Name of Medical Power of Sales Incentive Analyst diallo araiza March 26, 2023 5:06pm Advance Directive Response Recorded Date/ Time Name of Medical Power of Sales Incentive Analyst Milena Elainediandra and Padmini Chang March 31, 2023 9:38pm Name of Medical Power of Sales Incentive Analyst diallo elainediandra March 26, 2023 5:06pm Name of Medical Power of Sales Incentive Analyst Suzie Araiza (Milena), friend April 09, 2023 2:27pm Living Will Yes April 09 2:27pm Power of Sales Incentive Analyst Yes April 09, 2023 2:27pm Advance Directive Response Recorded Date/ Time Name of Medical Power of Sales Incentive Analyst Milena Akin and Padmini Chang March 31, 2023 10:38pm Name of Medical Power of Sales Incentive Analyst diallo elainediandra March 26, 2023 6:06pm Name of Medical Power of Sales Incentive Analyst Suzie Araiza (Milena), friend April 09, 2023 3:27pm Living Will Yes April 09, 024 3:27pm Power of Sales Incentive Analyst Yes April 09, 2023 3:27pm Date Activated [...] Do you have a Healthcare Power of Sales Incentive Analyst? Yes May 28, 2024 8:37am Advance Directive Response Recorded Date/ Time Advance Directives on File Yes May 28, 2024 8:37am Living Will Yes May 28, 2024 8:37am Do you have a Healthcare Power of Sales Incentive Analyst? Yes May 28, 2024 8:37am Do you have a Healthcare Power of Sales Incentive Analyst? Yes August 23, 2024 11:43am Name of Medical Power of Sales Incentive Analyst Milena Araiza August 23, 2024 7:33am Reason for Referral Specialty Diagnoses / Procedures Referred By Divya t Referred To Contact CT IMAGING Diagnoses Lung nodules Procedures CT CHEST WO IVCON DIAGNOSTIC COMPUTED TOMOGRAPHY THORAX W/O Florence Duncan MD [address] [place] [address] Ct Imaging Referral ID Status Reason Start Date Expiration Date Visits Requested Visits Authorized [id number] Authorized Auto-Generat ed Referral 2 12/29/2022 1 1 Specialty Diagnoses / Procedures Referred By Divya reis Referred To Contact CT IMAGING Diagnoses Lung nodules Bronchiectasis without complication (HCC) Procedures CT CHEST WO IVCON DIAGNOSTIC COMPUTED TOMOGRAPHY THORAX W/O Florence Duncan MD [address] [place] [address] Ct Imaging Referral ID Status Reason Start Date Expiration Date Visits Requested Visits Authorized [id number] Authorized Auto-Generat ed Referral 01/23/2023 08/23/2023 1 1 Specialty Diagnoses / Procedures Referred By Contac t Referred To Contact CT IMAGING Diagnoses Lung nodules Procedures CT CHEST WO IVCON DIAGNOSTIC COMPUTED TOMOGRAPHY THORAX W/O CNTFlorence Murdock MD [address] [facility] [address] [place] [address] Referral ID Status Reason Start Date Expiration Date V isits Requested Visits Authorized [id number] Closed Auto-Generate d Referral 11/29/2021 12/29/2022 1 1 Specialty Diagnoses / Procedures Referred By Contac t Referred To Contact Claudine Durán MD [address] [place] [address] Referral ID Status Reason Start Date Expiration Date Visits Re quested Visits Authorized [id number] Closed 1 1 Specialty Diagnoses / Procedures Referred By Contac t Referred To Contact Orthopedics Diagnoses Rheumatoid arthritis involving multiple sites with positive rheumatoid factor (HCC) Pain and swelling of right knee Procedures CONSULT TO ORTHOPAEDICS OFFICE/OUTPATIENT [facility] 60 MINUTES Jimbo Swanson APRN.SALES INCENTIVE ANALYST [address] [place] [address] Referral ID Status Reason Start Date Expiration Date Visits Requested Visits Authorized [id number] Authorized PCP Requested Referral 07/13/2023 07/12/2024 1 1 Specialty Diagnoses / Procedures Referred By Contac t Referred To Contact CT IMAGING Diagnoses Disseminated histoplasmosis Procedures CT CHEST WO IVCON DIAGNOSTIC COMPUTED TOMOGRAPHY THORAX W/O CNTRST Geno Hart MD [address] [facility] [address] [place] [address] [place] [address] Referral ID Status Reason Start Date Expiration Date V isits Requested Visits Authorized [id number] Closed Auto-Generate d Referral 08/30/2023 02/19/2024 1 1 Specialty Diagnoses / Procedures Referred By Contac t Referred To Contact Cardiology Diagnoses Aortic valve stenosis, etiology of cardiac valve disease unspecified Mitral valve stenosis, unspecified etiology Pericardial effusion Procedures CONSULT TO CARDIOLOGY OFFICE/OUTPATIENT [facility] 60 MINUTES Jimbo Swanson, LEATHER CARTRIDGE BELT MAKER.SALES INCENTIVE ANALYST [address] [place] [address] Referral ID Status Reason Start Date Expiration Date Visits Requested Visits Authorized [id number] Authorized PCP Requested Referral 10/11/2023 10/10/2024 1 1 Specialty Diagnoses / Procedures Referred By Contac t Referred [facility] Diagnoses Nonrheumatic aortic valve stenosis Nonrheumatic mitral valve stenosis Pericardial effusion Rheumatoid arthritis with positive rheumatoid factor, involving unspecified site (HCC) Histoplasmosis Procedures CARDIOVASCULAR MEDICINE OP FOLLOW UP APPT ORDER Lili Roche MD [address] [place] [address] [facility] [address] [address] Referral ID Status Reason Start Date Expiration Date Visits Requested Visits Authorized [id number] Ref Not Required PCP Requested Referral 07/07/2024 01/07/2025 1 1 Specialty Diagnoses / Procedures Referred By Contac t Referred To Contact [facility] [place] Procedures CARDIOVASCULAR MEDICINE OP FOLLOW [place] [address] [place] [address] [facility] [address] [address] Referral ID Status Reason Start Date Expiration Date Visits Requested Visits Authorized [id number] Authorized PCP Requested Referral 03/21/2024 03/21/2025 1 1 Specialty Diagnoses / Procedures Referred By Contac t Referred To Contact [facility] [place] Procedures CARDIOVASCULAR MEDICINE OP FOLLOW UP APPT ORDER Monica Aguila, LEATHER CARTRIDGE BELT MAKER.SUSTAINABILITY CONSULTANT [address] [place] [address] [facility] [address] [address] Referral ID Status Reason Start Date Expiration Date Visits Requested Visits Authorized [id number] Authorized PCP Requested Referral 03/25/2024 03/25/2025 1 [...] Risk Chronic Disease Home Monitoring [place] 07/05/2022 Infection Onset Date Last Indicated Resolved Time COVID-19 Rule-Out 03/20/2023 03/20/2023 03/20/2023 1:58 PM EST Respiratory Rule-Out 03/20/2023 03/20/2023 024 1:58 PM EST Problem Noted Date Diagnosed Date High Risk Chronic Disease Home Monitoring [place] 07/05/2022 Active Problems Noted Date Diagnosed Date High Risk Chronic Disease Home Monitoring [place] 07/05/2022 Chief Complaint and Reason for Visit [...] AND EXTREMITY SWELLING RIGHT LEG SWELLING LABWORK [facility] WORK LABWORK Reason for Visit Histoplasmosis [...] AND EXTREMITY SWELLING RIGHT LEG SWELLING LABWORK JAIL LAB WORK LABWORK LABWORK JAIL LAB WORK Reason for Visit Histoplasmosis History [...] AND EXTREMITY SWELLING RIGHT LEG SWELLING LABWORK JAIL LAB WORK LABWORK LABWORK LABWORK JAIL LAB WORK Reason for Visit Histoplasmosis History [...] AND EXTREMITY SWELLING RIGHT LEG SWELLING LABWORK JAIL LAB WORK LABWORK LABWORK LABWORK JAIL LAB WORK LABWORK Reason for Visit Histoplasmosis [...] AND EXTREMITY SWELLING RIGHT LEG SWELLING LABWORK [facility]AIL LAB WORK LABWORK LABWORK LABWORK JAIL LAB WORK LABWORK JAIL LAB WORK Reason for Visit Histoplasmosis History [...] LEG SWELLING ADMISSION EXAM LABWORK ADMISSION EXAM [facility] WORK LABWORK LABWORK LABWORK JAIL LAB WORK LABWORK LABWORK LABWORK LABWORK JAIL LAB WORK LABWORK Reason for Visit Histoplasmosis [...] s/p TAVR August 18, 2024 9:15 am Chief Complaint Admit Date S/P TAVR May 28, 2024 7:55 am s/p TAVR June 18, 2024 9:1 5am AORTICE VALVE STENOSIS (SWANSON) June 20, 2024 10:07am s/p TAVR July 18, 2024 9:15a m s/p TAVR August 18, 2024 9:15 am s/p TAVR August 20, 2024 7:17a m FALL August 23, 2024 10:24 am Reason for Visit Admit Date Mitral stenosis June 20, 2024 10:07a m Severe aortic stenosis June 20, 2024 10: 07am Hypertension June 20, 2024 10:07a m Closed fracture of distal end of left ra dius August 23, 2024 10:24am Closed head injury without concussion Ju 2024 10:24am Chief Complaint Admit Date S/P TAVR May 28, 2024 7:55 am s/p TAVR June 18, 2024 9:1 5am AORTICE VALVE STENOSIS (SWANSON) June 20, 2024 10:07am s/p TAVR July 18, 2024 9:15a m s/p TAVR August 18, 2024 9:15 am s/p TAVR August 20, 2024 7:17a m FALL August 23, 2024 10:24 am FALL August 24, 2024 8:49a m FALL August 25, 2024 6:19p m FALL August 26, 2024 4:54p m FALL August 27, 2024 11:58 am Reason for Visit Admit Date Mitral stenosis June 20, 2024 10:07a m Severe aortic stenosis June 20, 2024 10: 07am Hypertension June 20, 2024 10:07a m Closed fracture of distal end of left ra dius August 23, 2024 10:24am Closed head injury without concussion Ju 2024 10:24am Declining functional status August 23 10:24am Chief Complaint Admit Date S/P TAVR May 28, 2024 7:55 am s/p TAVR June 18, 2024 9:1 5am AORTICE VALVE STENOSIS (SWANSON) June 20, 2024 10:07am s/p TAVR July 18, 2024 9:15a m s/p TAVR August 18, 2024 9:15 am s/p TAVR August 20, 2024 7:17a m FALL August 23, 2024 10:24 am FALL August 24, 2024 8:49a m fallAugust 25, 2024 6:19p m FALL August 26, 2024 4:54p m FALL August 27, 2024 11:58 am LAB WORK August 28, 2024 5:00 am LABWORK September 01, 2024 5:00 am LABWORK September 08, 2024 5:00 am Additional Source Comments INFORMATION SOURCE (unrecogn ized section and content) DATE CREATED AUTHOR 08/15/2017 [facility] DATE CREATED AUTHOR AUTHOR'S ORGANIZ ATION 03/10/2018 [facility] DATE CREATED AUTHOR AUTHOR'S ORGANIZ ATION 09/04/2023 [facility] DATE CREATED AUTHOR AUTHOR'S ORGANIZ ATION 01/07/2024 [facility] DATE CREATED AUTHOR AUTHOR'S ORGANIZ ATION 08/27/2024 [facility] DATE CREATED AUTHOR AUTHOR'S ORGANIZ ATION [facility]20[facility] Source Comments (unrecognize d section and content) In the event this informatio n is protected by the Federal Confidentiality of Alcohol and Drug Abuse Patient Records regulations: The Federal rules restrict any use of the information to criminally investigate or prosecute any alcohol or drug abuse patient.[facility] the event this information is protected by the Federal Confidentiality of Alcohol and Drug Abuse Patient Records regulations: The Federal rules restrict any use of the information to criminally investigate or prosecute any alcohol or drug abuse patient.[facility]ble[facility] the event this information is protected by the Federal Confidentiality of Alcohol and Drug Abuse Patient Records regulations: The Federal rules restrict any use of the information to criminally investigate or prosecute any alcohol or drug abuse patient.[facility]ble[facility] the event this information is protected by the Federal Confidentiality of Alcohol and Drug Abuse Patient Records regulations: The Federal rules restrict any use of the information to criminally investigate or prosecute any alcohol or drug abuse patient.[facility]ble[facility] the event this information is protected by the Federal Confidentiality of Alcohol and Drug Abuse Patient Records regulations: The Federal rules restrict any use of the information to criminally investigate or prosecute any alcohol or drug abuse patient.[facility]ble[facility] the event this information is protected by the Federal Confidentiality of Alcohol and Drug Abuse Patient Records regulations: The Federal rules restrict any use of the information to criminally investigate or prosecute any alcohol or drug abuse patient.[facility]ble[facility] the event this information is protected by the Federal Confidentiality of Alcohol and Drug Abuse Patient Records regulations: The Federal rules restrict any use of the information to criminally investigate or prosecute any alcohol or drug abuse patient.[facility]ble[facility] the event this information is protected by the Federal Confidentiality of Alcohol and Drug Abuse Patient Records regulations: The Federal rules restrict any use of the information to criminally investigate or prosecute any alcohol or drug abuse patient.[facility]bleIn the event this information is protected by the Federal Confidentiality of Alcohol and Drug Abuse Patient Records regulations: The Federal rules restrict any use of the information to criminally investigate or prosecute any alcohol or drug abuse patient.[facility]bleIn the event this information is protected by the Federal Confidentiality of Alcohol and Drug Abuse Patient Records regulations: The Federal rules restrict any use of the information to criminally investigate or prosecute any alcohol or drug abuse patient.[facility]bleIn the event this information is protected by the Federal Confidentiality of Alcohol and Drug Abuse Patient Records regulations: The Federal rules restrict any use of the information to criminally investigate or prosecute any alcohol or drug abuse patient.[facility]In the event this information is protected by the Federal Confidentiality of Alcohol and Drug Abuse Patient Records regulations: The Federal rules restrict any use of the information to criminally investigate or prosecute any alcohol or drug abuse patient.[facility]In the event this information is protected by the Federal Confidentiality of Alcohol and Drug Abuse Patient Records regulations: The Federal rules restrict any use of the information to criminally investigate or prosecute any alcohol or drug abuse patient.[facility]In the event this information is protected by the Federal Confidentiality of Alcohol and Drug Abuse Patient Records regulations: The Federal rules restrict any use of the information to criminally investigate or prosecute any alcohol or drug abuse patient.[facility]In the event this information is protected by the Federal Confidentiality of Alcohol and Drug Abuse Patient Records regulations: The Federal rules restrict any use of the information to criminally investigate or prosecute any alcohol or drug abuse patient.[facility]In the event this information is protected by the Federal Confidentiality of Alcohol and Drug Abuse Patient Records regulations: The Federal rules restrict any use of the information to criminally investigate or prosecute any alcohol or drug abuse patient.[facility]In the event this information is protected by the Federal Confidentiality of Alcohol and Drug Abuse Patient Records regulations: The Federal rules restrict any use of the information to criminally investigate or prosecute any alcohol or drug abuse patient.[facility]In the event this information is protected by the Federal Confidentiality of Alcohol and Drug Abuse Patient Records regulations: The Federal rules restrict any use of the information to criminally investigate or prosecute any alcohol or drug abuse patient.[facility]In the event this information is protected by the Federal Confidentiality of Alcohol and Drug Abuse Patient Records regulations: The Federal rules restrict any use of the information to criminally investigate or prosecute any alcohol or drug abuse patient.[facility]In the event this information is protected by the Federal Confidentiality of Alcohol and Drug Abuse Patient Records regulations: The Federal rules restrict any use of the information to criminally investigate or prosecute any alcohol or drug abuse patient.[facility]In the event this information is protected by the Federal Confidentiality of Alcohol and Drug Abuse Patient Records regulations: The Federal rules restrict any use of the information to criminally investigate or prosecute any alcohol or drug abuse patient.[facility]In the event this information is protected by the Federal Confidentiality of Alcohol and Drug Abuse Patient Records regulations: The Federal rules restrict any use of the information to criminally investigate or prosecute any alcohol or drug abuse patient.[facility]In the event this information is protected by the Federal Confidentiality of Alcohol and Drug Abuse Patient Records regulations: The Federal rules restrict any use of the information to criminally investigate or prosecute any alcohol or drug abuse patient.[facility]In the event this information is protected by the Federal Confidentiality of Alcohol and Drug Abuse Patient Records regulations: The Federal rules restrict any use of the information to criminally investigate or prosecute any alcohol or drug abuse patient.[facility]In the event this information is protected by the Federal Confidentiality of Alcohol and Drug Abuse Patient Records regulations: The Federal rules restrict any use of the information to criminally investigate or prosecute any alcohol or drug abuse patient.[facility]In the event this information is protected by the Federal Confidentiality of Alcohol and Drug Abuse Patient Records regulations: The Federal rules restrict any use of the information to criminally investigate or prosecute any alcohol or drug abuse patient.[facility]In the event this information is protected by the Federal Confidentiality of Alcohol and Drug Abuse Patient Records regulations: The Federal rules restrict any use of the information to criminally investigate or prosecute any alcohol or drug abuse patient.[facility]In the event this information is protected by the Federal Confidentiality of Alcohol and Drug Abuse Patient Records regulations: The Federal rules restrict any use of the information to criminally investigate or prosecute any alcohol or drug abuse patient.[facility]In the event this information is protected by the Federal Confidentiality of Alcohol and Drug Abuse Patient Records regulations: The Federal rules restrict any use of the information to criminally investigate or prosecute any alcohol or drug abuse patient.[facility]In the event this information is protected by the Federal Confidentiality of Alcohol and Drug Abuse Patient Records regulations: The Federal rules restrict any use of the information to criminally investigate or prosecute any alcohol or drug abuse patient.[facility]In the event this information is protected by the Federal Confidentiality of Alcohol and Drug Abuse Patient Records regulations: The Federal rules restrict any use of the information to criminally investigate or prosecute any alcohol or drug abuse patient.[facility]In the event this information is protected by the Federal Confidentiality of Alcohol and Drug Abuse Patient Records regulations: The Federal rules restrict any use of the information to criminally investigate or prosecute any alcohol or drug abuse patient.[facility]In the event this information is protected by the Federal Confidentiality of Alcohol and Drug Abuse Patient Records regulations: The Federal rules restrict any use of the information to criminally investigate or prosecute any alcohol or drug abuse patient.[facility]In the event this information is protected by the Federal Confidentiality of Alcohol and Drug Abuse Patient Records regulations: The Federal rules restrict any use of the information to criminally investigate or prosecute any alcohol or drug abuse patient.[facility]In the event this information is protected by the Federal Confidentiality of Alcohol and Drug Abuse Patient Records regulations: The Federal rules restrict any use of the information to criminally investigate or prosecute any alcohol or drug abuse patient.[facility]In the event this information is protected by the Federal Confidentiality of Alcohol and Drug Abuse Patient Records regulations: The Federal rules restrict any use of the information to criminally investigate or prosecute any alcohol or drug abuse patient.[facility]In the event this information is protected by the Federal Confidentiality of Alcohol and Drug Abuse Patient Records regulations: The Federal rules restrict any use of the information to criminally investigate or prosecute any alcohol or drug abuse patient.[facility]In the event this information is protected by the Federal Confidentiality of Alcohol and Drug Abuse Patient Records regulations: The Federal rules restrict any use of the information to criminally investigate or prosecute any alcohol or drug abuse patient.[facility]In the event this information is protected by the Federal Confidentiality of Alcohol and Drug Abuse Patient Records regulations: The Federal rules restrict any use of the information to criminally investigate or prosecute any alcohol or drug abuse patient.[facility]In the event this information is protected by the Federal Confidentiality of Alcohol and Drug Abuse Patient Records regulations: The Federal rules restrict any use of the information to criminally investigate or prosecute any alcohol or drug abuse patient.[facility]In the event this information is protected by the Federal Confidentiality of Alcohol and Drug Abuse Patient Records regulations: The Federal rules restrict any use of the information to criminally investigate or prosecute any alcohol or drug abuse patient.[facility]In the event this information is protected by the Federal Confidentiality of Alcohol and Drug Abuse Patient Records regulations: The Federal rules restrict any use of the information to criminally investigate or prosecute any alcohol or drug abuse patient.[facility]In the event this information is protected by the Federal Confidentiality of Alcohol and Drug Abuse Patient Records regulations: The Federal rules restrict any use of the information to criminally investigate or prosecute any alcohol or drug abuse patient.[facility]In the event this information is protected by the Federal Confidentiality of Alcohol and Drug Abuse Patient Records regulations: The Federal rules restrict any use of the information to criminally investigate or prosecute any alcohol or drug abuse patient.[facility]In the event this information is protected by the Federal Confidentiality of Alcohol and Drug Abuse Patient Records regulations: The Federal rules restrict any use of the information to criminally investigate or prosecute any alcohol or drug abuse patient.[facility]In the event this information is protected by the Federal Confidentiality of Alcohol and Drug Abuse Patient Records regulations: The Federal rules restrict any use of the information to criminally investigate or prosecute any alcohol or drug abuse patient.[facility]In the event this information is protected by the Federal Confidentiality of Alcohol and Drug Abuse Patient Records regulations: The Federal rules restrict any use of the information to criminally investigate or prosecute any alcohol or drug abuse patient.[facility]In the event this information is protected by the Federal Confidentiality of Alcohol and Drug Abuse Patient Records regulations: The Federal rules restrict any use of the information to criminally investigate or prosecute any alcohol or drug abuse patient.[facility]In the event this information is protected by the Federal Confidentiality of Alcohol and Drug Abuse Patient Records regulations: The Federal rules restrict any use of the information to criminally investigate or prosecute any alcohol or drug abuse patient.[facility]In the event this information is protected by the Federal Confidentiality of Alcohol and Drug Abuse Patient Records regulations: The Federal rules restrict any use of the information to criminally investigate or prosecute any alcohol or drug abuse patient.[facility]In the event this information is protected by the Federal Confidentiality of Alcohol and Drug Abuse Patient Records regulations: The Federal rules restrict any use of the information to criminally investigate or prosecute any alcohol or drug abuse patient.[facility]In the event this information is protected by the Federal Confidentiality of Alcohol and Drug Abuse Patient Records regulations: The Federal rules restrict any use of the information to criminally investigate or prosecute any alcohol or drug abuse patient.[facility]In the event this information is protected by the Federal Confidentiality of Alcohol and Drug Abuse Patient Records regulations: The Federal rules restrict any use of the information to criminally investigate or prosecute any alcohol or drug abuse patient.[facility]In the event this information is protected by the Federal Confidentiality of Alcohol and Drug Abuse Patient Records regulations: The Federal rules restrict any use of the information to criminally investigate or prosecute any alcohol or drug abuse patient.[facility]In the event this information is protected by the Federal Confidentiality of Alcohol and Drug Abuse Patient Records regulations: The Federal rules restrict any use of the information to criminally investigate or prosecute any alcohol or drug abuse patient.[facility]In the event this information is protected by the Federal Confidentiality of Alcohol and Drug Abuse Patient Records regulations: The Federal rules restrict any use of the information to criminally investigate or prosecute any alcohol or drug abuse patient.[facility]In the event this information is protected by the Federal Confidentiality of Alcohol and Drug Abuse Patient Records regulations: The Federal rules restrict any use of the information to criminally investigate or prosecute any alcohol or drug abuse patient.[facility]In the event this information is protected by the Federal Confidentiality of Alcohol and Drug Abuse Patient Records regulations: The Federal rules restrict any use of the information to criminally investigate or prosecute any alcohol or drug abuse patient.[facility]In the event this information is protected by the Federal Confidentiality of Alcohol and Drug Abuse Patient Records regulations: The Federal rules restrict any use of the information to criminally investigate or prosecute any alcohol or drug abuse patient.[facility]In the event this information is protected by the Federal Confidentiality of Alcohol and Drug Abuse Patient Records regulations: The Federal rules restrict any use of the information to criminally investigate or prosecute any alcohol or drug abuse patient.[facility]In the event this information is protected by the Federal Confidentiality of Alcohol and Drug Abuse Patient Records regulations: The Federal rules restrict any use of the information to criminally investigate or prosecute any alcohol or drug abuse patient.[facility]In the event this information is protected by the Federal Confidentiality of Alcohol and Drug Abuse Patient Records regulations: The Federal rules restrict any use of the information to criminally investigate or prosecute any alcohol or drug abuse patient.[facility]In the event this information is protected by the Federal Confidentiality of Alcohol and Drug Abuse Patient Records regulations: The Federal rules restrict any use of the information to criminally investigate or prosecute any alcohol or drug abuse patient.[facility]In the event this information is protected by the Federal Confidentiality of Alcohol and Drug Abuse Patient Records regulations: The Federal rules restrict any use of the information to criminally investigate or prosecute any alcohol or drug abuse patient.[facility]In the event this information is protected by the Federal Confidentiality of Alcohol and Drug Abuse Patient Records regulations: The Federal rules restrict any use of the information to criminally investigate or prosecute any alcohol or drug abuse patient.[facility]In the event this information is protected by the Federal Confidentiality of Alcohol and Drug Abuse Patient Records regulations: The Federal rules restrict any use of the information to criminally investigate or prosecute any alcohol or drug abuse patient.[facility]In the event this information is protected by the Federal Confidentiality of Alcohol and Drug Abuse Patient Records regulations: The Federal rules restrict any use of the information to criminally investigate or prosecute any alcohol or drug abuse patient.[facility]In the event this information is protected by the Federal Confidentiality of Alcohol and Drug Abuse Patient Records regulations: The Federal rules restrict any use of the information to criminally investigate or prosecute any alcohol or drug abuse patient.[facility]In the event this information is protected by the Federal Confidentiality of Alcohol and Drug Abuse Patient Records regulations: The Federal rules restrict any use of the information to criminally investigate or prosecute any alcohol or drug abuse patient.[facility]In the event this information is protected by the Federal Confidentiality of Alcohol and Drug Abuse Patient Records regulations: The Federal rules restrict any use of the information to criminally investigate or prosecute any alcohol or drug abuse patient.[facility]In the event this information is protected by the Federal Confidentiality of Alcohol and Drug Abuse Patient Records regulations: The Federal rules restrict any use of the information to criminally investigate or prosecute any alcohol or drug abuse patient.[facility]In the event this information is protected by the Federal Confidentiality of Alcohol and Drug Abuse Patient Records regulations: The Federal rules restrict any use of the information to criminally investigate or prosecute any alcohol or drug abuse patient.[facility]In the event this information is protected by the Federal Confidentiality of Alcohol and Drug Abuse Patient Records regulations: The Federal rules restrict any use of the information to criminally investigate or prosecute any alcohol or drug abuse patient.[facility]In the event this information is protected by the Federal Confidentiality of Alcohol and Drug Abuse Patient Records regulations: The Federal rules restrict any use of the information to criminally investigate or prosecute any alcohol or drug abuse patient.[facility]In the event this information is protected by the Federal Confidentiality of Alcohol and Drug Abuse Patient Records regulations: The Federal rules restrict any use of the information to criminally investigate or prosecute any alcohol or drug abuse patient.[facility]In the event this information is protected by the Federal Confidentiality of Alcohol and Drug Abuse Patient Records regulations: The Federal rules restrict any use of the information to criminally investigate or prosecute any alcohol or drug abuse patient.[facility]In the event this information is protected by the Federal Confidentiality of Alcohol and Drug Abuse Patient Records regulations: The Federal rules restrict any use of the information to criminally investigate or prosecute any alcohol or drug abuse patient.[facility]In the event this information is protected by the Federal Confidentiality of Alcohol and Drug Abuse Patient Records regulations: The Federal rules restrict any use of the information to criminally investigate or prosecute any alcohol or drug abuse patient.[facility]In the event this information is protected by the Federal Confidentiality of Alcohol and Drug Abuse Patient Records regulations: The Federal rules restrict any use of the information to criminally investigate or prosecute any alcohol or drug abuse patient.[facility]In the event this information is protected by the Federal Confidentiality of Alcohol and Drug Abuse Patient Records regulations: The Federal rules restrict any use of the information to criminally investigate or prosecute any alcohol or drug abuse patient.[facility]In the event this information is protected by the Federal Confidentiality of Alcohol and Drug Abuse Patient Records regulations: The Federal rules restrict any use of the information to criminally investigate or prosecute any alcohol or drug abuse patient.[facility]In the event this information is protected by the Federal Confidentiality of Alcohol and Drug Abuse Patient Records regulations: The Federal rules restrict any use of the information to criminally investigate or prosecute any alcohol or drug abuse patient.[facility]In the event this information is protected by the Federal Confidentiality of Alcohol and Drug Abuse Patient Records regulations: The Federal rules restrict any use of the information to criminally investigate or prosecute any alcohol or drug abuse patient.[facility]In the event this information is protected by the Federal Confidentiality of Alcohol and Drug Abuse Patient Records regulations: The Federal rules restrict any use of the information to criminally investigate or prosecute any alcohol or drug abuse patient.[facility]In the event this information is protected by the Federal Confidentiality of Alcohol and Drug Abuse Patient Records regulations: The Federal rules restrict any use of the information to criminally investigate or prosecute any alcohol or drug abuse patient.[facility]In the event this information is protected by the Federal Confidentiality of Alcohol and Drug Abuse Patient Records regulations: The Federal rules restrict any use of the information to criminally investigate or prosecute any alcohol or drug abuse patient.[facility]In the event this information is protected by the Federal Confidentiality of Alcohol and Drug Abuse Patient Records regulations: The Federal rules restrict any use of the information to criminally investigate or prosecute any alcohol or drug abuse patient.[facility]In the event this information is protected by the Federal Confidentiality of Alcohol and Drug Abuse Patient Records regulations: The Federal rules restrict any use of the information to criminally investigate or prosecute any alcohol or drug abuse patient.[facility]In the event this information is protected by the Federal Confidentiality of Alcohol and Drug Abuse Patient Records regulations: The Federal rules restrict any use of the information to criminally investigate or prosecute any alcohol or drug abuse patient.[facility]In the event this information is protected by the Federal Confidentiality of Alcohol and Drug Abuse Patient Records regulations: The Federal rules restrict any use of the information to criminally investigate or prosecute any alcohol or drug abuse patient.[facility]In the event this information is protected by the Federal Confidentiality of Alcohol and Drug Abuse Patient Records regulations: The Federal rules restrict any use of the information to criminally investigate or prosecute any alcohol or drug abuse patient.[facility]In the event this information is protected by the Federal Confidentiality of Alcohol and Drug Abuse Patient Records regulations: The Federal rules restrict any use of the information to criminally investigate or prosecute any alcohol or drug abuse patient.[facility]In the event this information is protected by the Federal Confidentiality of Alcohol and Drug Abuse Patient Records regulations: The Federal rules restrict any use of the information to criminally investigate or prosecute any alcohol or drug abuse patient.[facility]In the event this information is protected by the Federal Confidentiality of Alcohol and Drug Abuse Patient Records regulations: The Federal rules restrict any use of the information to criminally investigate or prosecute any alcohol or drug abuse patient.[facility]In the event this information is protected by the Federal Confidentiality of Alcohol and Drug Abuse Patient Records regulations: The Federal rules restrict any use of the information to criminally investigate or prosecute any alcohol or drug abuse patient.[facility]In the event this information is protected by the Federal Confidentiality of Alcohol and Drug Abuse Patient Records regulations: The Federal rules restrict any use of the information to criminally investigate or prosecute any alcohol or drug abuse patient.[facility]In the event this information is protected by the Federal Confidentiality of Alcohol and Drug Abuse Patient Records regulations: The Federal rules restrict any use of the information to criminally investigate or prosecute any alcohol or drug abuse patient.[facility]In the event this information is protected by the Federal Confidentiality of Alcohol and Drug Abuse Patient Records regulations: The Federal rules restrict any use of the information to criminally investigate or prosecute any alcohol or drug abuse patient.[facility]bleIn the event this information is protected by the Federal Confidentiality of Alcohol and Drug Abuse Patient Records regulations: The Federal rules restrict any use of the information to criminally investigate or prosecute any alcohol or drug abuse patient.[facility]In the event this information is protected by the Federal Confidentiality of Alcohol and Drug Abuse Patient Records regulations: The Federal rules restrict any use of the information to criminally investigate or prosecute any alcohol or drug abuse patient.[facility]In the event this information is protected by the Federal Confidentiality of Alcohol and Drug Abuse Patient Records regulations: The Federal rules restrict any use of the information to criminally investigate or prosecute any alcohol or drug abuse patient.[facility]In the event this information is protected by the Federal Confidentiality of Alcohol and Drug Abuse Patient Records regulations: The Federal rules restrict any use of the information to criminally investigate or prosecute any alcohol or drug abuse patient.[facility]bleIn the event this information is protected by the Federal Confidentiality of Alcohol and Drug Abuse Patient Records regulations: The Federal rules restrict any use of the information to criminally investigate or prosecute any alcohol or drug abuse patient.[facility]In the event this information is protected by the Federal Confidentiality of Alcohol and Drug Abuse Patient Records regulations: The Federal rules restrict any use of the information to criminally investigate or prosecute any alcohol or drug abuse patient.[facility]In the event this information is protected by the Federal Confidentiality of Alcohol and Drug Abuse Patient Records regulations: The Federal rules restrict any use of the information to criminally investigate or prosecute any alcohol or drug abuse patient.[facility]In the event this information is protected by the Federal Confidentiality of Alcohol and Drug Abuse Patient Records regulations: The Federal rules restrict any use of the information to criminally investigate or prosecute any alcohol or drug abuse patient.[facility]In the event this information is protected by the Federal Confidentiality of Alcohol and Drug Abuse Patient Records regulations: The Federal rules restrict any use of the information to criminally investigate or prosecute any alcohol or drug abuse patient.[facility]In the event this information is protected by the Federal Confidentiality of Alcohol and Drug Abuse Patient Records regulations: The Federal rules restrict any use of the information to criminally investigate or prosecute any alcohol or drug abuse patient.[facility]In the event this information is protected by the Federal Confidentiality of Alcohol and Drug Abuse Patient Records regulations: The Federal rules restrict any use of the information to criminally investigate or prosecute any alcohol or drug abuse patient.[facility]In the event this information is protected by the Federal Confidentiality of Alcohol and Drug Abuse Patient Records regulations: The Federal rules restrict any use of the information to criminally investigate or prosecute any alcohol or drug abuse patient.[facility]In the event this information is protected by the Federal Confidentiality of Alcohol and Drug Abuse Patient Records regulations: The Federal rules restrict any use of the information to criminally investigate or prosecute any alcohol or drug abuse patient.[facility]In the event this information is protected by the Federal Confidentiality of Alcohol and Drug Abuse Patient Records regulations: The Federal rules restrict any use of the information to criminally investigate or prosecute any alcohol or drug abuse patient.[facility]In the event this information is protected by the Federal Confidentiality of Alcohol and Drug Abuse Patient Records regulations: The Federal rules restrict any use of the information to criminally investigate or prosecute any alcohol or drug abuse patient.[facility]In the event this information is protected by the Federal Confidentiality of Alcohol and Drug Abuse Patient Records regulations: The Federal rules restrict any use of the information to criminally investigate or prosecute any alcohol or drug abuse patient.[facility]In the event this information is protected by the Federal Confidentiality of Alcohol and Drug Abuse Patient Records regulations: The Federal rules restrict any use of the information to criminally investigate or prosecute any alcohol or drug abuse patient.[facility]In the event this information is protected by the Federal Confidentiality of Alcohol and Drug Abuse Patient Records regulations: The Federal rules restrict any use of the information to criminally investigate or prosecute any alcohol or drug abuse patient.[facility]In the event this information is protected by the Federal Confidentiality of Alcohol and Drug Abuse Patient Records regulations: The Federal rules restrict any use of the information to criminally investigate or prosecute any alcohol or drug abuse patient.[facility]In the event this information is protected by the Federal Confidentiality of Alcohol and Drug Abuse Patient Records regulations: The Federal rules restrict any use of the information to criminally investigate or prosecute any alcohol or drug abuse patient.[facility]In the event this information is protected by the Federal Confidentiality of Alcohol and Drug Abuse Patient Records regulations: The Federal rules restrict any use of the information to criminally investigate or prosecute any alcohol or drug abuse patient.[facility]In the event this information is protected by the Federal Confidentiality of Alcohol and Drug Abuse Patient Records regulations: The Federal rules restrict any use of the information to criminally investigate or prosecute any alcohol or drug abuse patient.[facility]In the event this information is protected by the Federal Confidentiality of Alcohol and Drug Abuse Patient Records regulations: The Federal rules restrict any use of the information to criminally investigate or prosecute any alcohol or drug abuse patient.[facility]In the event this information is protected by the Federal Confidentiality of Alcohol and Drug Abuse Patient Records regulations: The Federal rules restrict any use of the information to criminally investigate or prosecute any alcohol or drug abuse patient.[facility]In the event this information is protected by the Federal Confidentiality of Alcohol and Drug Abuse Patient Records regulations: The Federal rules restrict any use of the information to criminally investigate or prosecute any alcohol or drug abuse patient.[facility]In the event this information is protected by the Federal Confidentiality of Alcohol and Drug Abuse Patient Records regulations: The Federal rules restrict any use of the information to criminally investigate or prosecute any alcohol or drug abuse patient.[facility]In the event this information is protected by the Federal Confidentiality of Alcohol and Drug Abuse Patient Records regulations: The Federal rules restrict any use of the information to criminally investigate or prosecute any alcohol or drug abuse patient.[facility]In the event this information is protected by the Federal Confidentiality of Alcohol and Drug Abuse Patient Records regulations: The Federal rules restrict any use of the information to criminally investigate or prosecute any alcohol or drug abuse patient.[facility]In the event this information is protected by the Federal Confidentiality of Alcohol and Drug Abuse Patient Records regulations: The Federal rules restrict any use of the information to criminally investigate or prosecute any alcohol or drug abuse patient.[facility]In the event this information is protected by the Federal Confidentiality of Alcohol and Drug Abuse Patient Records regulations: The Federal rules restrict any use of the information to criminally investigate or prosecute any alcohol or drug abuse patient.[facility]In the event this information is protected by the Federal Confidentiality of Alcohol and Drug Abuse Patient Records regulations: The Federal rules restrict any use of the information to criminally investigate or prosecute any alcohol or drug abuse patient.[facility]In the event this information is protected by the Federal Confidentiality of Alcohol and Drug Abuse Patient Records regulations: The Federal rules restrict any use of the information to criminally investigate or prosecute any alcohol or drug abuse patient.[facility]In the event this information is protected by the Federal Confidentiality of Alcohol and Drug Abuse Patient Records regulations: The Federal rules restrict any use of the information to criminally investigate or prosecute any alcohol or drug abuse patient.[facility]In the event this information is protected by the Federal Confidentiality of Alcohol and Drug Abuse Patient Records regulations: The Federal rules restrict any use of the information to criminally investigate or prosecute any alcohol or drug abuse patient.[facility]In the event this information is protected by the Federal Confidentiality of Alcohol and Drug Abuse Patient Records regulations: The Federal rules restrict any use of the information to criminally investigate or prosecute any alcohol or drug abuse patient.[facility]In the event this information is protected by the Federal Confidentiality of Alcohol and Drug Abuse Patient Records regulations: The Federal rules restrict any use of the information to criminally investigate or prosecute any alcohol or drug abuse patient.[facility]In the event this information is protected by the Federal Confidentiality of Alcohol and Drug Abuse Patient Records regulations: The Federal rules restrict any use of the information to criminally investigate or prosecute any alcohol or drug abuse patient.[facility]In the event this information is protected by the Federal Confidentiality of Alcohol and Drug Abuse Patient Records regulations: The Federal rules restrict any use of the information to criminally investigate or prosecute any alcohol or drug abuse patient.[facility]In the event this information is protected by the Federal Confidentiality of Alcohol and Drug Abuse Patient Records regulations: The Federal rules restrict any use of the information to criminally investigate or prosecute any alcohol or drug abuse patient.[facility]In the event this information is protected by the Federal Confidentiality of Alcohol and Drug Abuse Patient Records regulations: The Federal rules restrict any use of the information to criminally investigate or prosecute any alcohol or drug abuse patient.[facility]In the event this information is protected by the Federal Confidentiality of Alcohol and Drug Abuse Patient Records regulations: The Federal rules restrict any use of the information to criminally investigate or prosecute any alcohol or drug abuse patient.[facility]In the event this information is protected by the Federal Confidentiality of Alcohol and Drug Abuse Patient Records regulations: The Federal rules restrict any use of the information to criminally investigate or prosecute any alcohol or drug abuse patient.[facility]In the event this information is protected by the Federal Confidentiality of Alcohol and Drug Abuse Patient Records regulations: The Federal rules restrict any use of the information to criminally investigate or prosecute any alcohol or drug abuse patient.[facility]In the event this information is protected by the Federal Confidentiality of Alcohol and Drug Abuse Patient Records regulations: The Federal rules restrict any use of the information to criminally investigate or prosecute any alcohol or drug abuse patient.[facility]In the event this information is protected by the Federal Confidentiality of Alcohol and Drug Abuse Patient Records regulations: The Federal rules restrict any use of the information to criminally investigate or prosecute any alcohol or drug abuse patient.[facility]In the event this information is protected by the Federal Confidentiality of Alcohol and Drug Abuse Patient Records regulations: The Federal rules restrict any use of the information to criminally investigate or prosecute any alcohol or drug abuse patient.[facility]In the event this information is protected by the Federal Confidentiality of Alcohol and Drug Abuse Patient Records regulations: The Federal rules restrict any use of the information to criminally investigate or prosecute any alcohol or drug abuse patient.[facility]In the event this information is protected by the Federal Confidentiality of Alcohol and Drug Abuse Patient Records regulations: The Federal rules restrict any use of the information to criminally investigate or prosecute any alcohol or drug abuse patient.[facility]In the event this information is protected by the Federal Confidentiality of Alcohol and Drug Abuse Patient Records regulations: The Federal rules restrict any use of the information to criminally investigate or prosecute any alcohol or drug abuse patient.[facility]In the event this information is protected by the Federal Confidentiality of Alcohol and Drug Abuse Patient Records regulations: The Federal rules restrict any use of the information to criminally investigate or prosecute any alcohol or drug abuse patient.[facility]In the event this information is protected by the Federal Confidentiality of Alcohol and Drug Abuse Patient Records regulations: The Federal rules restrict any use of the information to criminally investigate or prosecute any alcohol or drug abuse patient.[facility]In the event this information is protected by the Federal Confidentiality of Alcohol and Drug Abuse Patient Records regulations: The Federal rules restrict any use of the information to criminally investigate or prosecute any alcohol or drug abuse patient.[facility]In the event this information is protected by the Federal Confidentiality of Alcohol and Drug Abuse Patient Records regulations: The Federal rules restrict any use of the information to criminally investigate or prosecute any alcohol or drug abuse patient.[facility]In the event this information is protected by the Federal Confidentiality of Alcohol and Drug Abuse Patient Records regulations: The Federal rules restrict any use of the information to criminally investigate or prosecute any alcohol or drug abuse patient.[facility]In the event this information is protected by the Federal Confidentiality of Alcohol and Drug Abuse Patient Records regulations: The Federal rules restrict any use of the information to criminally investigate or prosecute any alcohol or drug abuse patient.[facility]In the event this information is protected by the Federal Confidentiality of Alcohol and Drug Abuse Patient Records regulations: The Federal rules restrict any use of the information to criminally investigate or prosecute any alcohol or drug abuse patient.[facility]In the event this information is protected by the Federal Confidentiality of Alcohol and Drug Abuse Patient Records regulations: The Federal rules restrict any use of the information to criminally investigate or prosecute any alcohol or drug abuse patient.[facility]In the event this information is protected by the Federal Confidentiality of Alcohol and Drug Abuse Patient Records regulations: The Federal rules restrict any use of the information to criminally investigate or prosecute any alcohol or drug abuse patient.[facility]In the event this information is protected by the Federal Confidentiality of Alcohol and Drug Abuse Patient Records regulations: The Federal rules restrict any use of the information to criminally investigate or prosecute any alcohol or drug abuse patient.[facility]In the event this information is protected by the Federal Confidentiality of Alcohol and Drug Abuse Patient Records regulations: The Federal rules restrict any use of the information to criminally investigate or prosecute any alcohol or drug abuse patient.[facility]In the event this information is protected by the Federal Confidentiality of Alcohol and Drug Abuse Patient Records regulations: The Federal rules restrict any use of the information to criminally investigate or prosecute any alcohol or drug abuse patient.[facility]In the event this information is protected by the Federal Confidentiality of Alcohol and Drug Abuse Patient Records regulations: The Federal rules restrict any use of the information to criminally investigate or prosecute any alcohol or drug abuse patient.[facility]In the event this information is protected by the Federal Confidentiality of Alcohol and Drug Abuse Patient Records regulations: The Federal rules restrict any use of the information to criminally investigate or prosecute any alcohol or drug abuse patient.[facility]In the event this information is protected by the Federal Confidentiality of Alcohol and Drug Abuse Patient Records regulations: The Federal rules restrict any use of the information to criminally investigate or prosecute any alcohol or drug abuse patient.[facility]In the event this information is protected by the Federal Confidentiality of Alcohol and Drug Abuse Patient Records regulations: The Federal rules restrict any use of the information to criminally investigate or prosecute any alcohol or drug abuse patient.[facility]In the event this information is protected by the Federal Confidentiality of Alcohol and Drug Abuse Patient Records regulations: The Federal rules restrict any use of the information to criminally investigate or prosecute any alcohol or drug abuse patient.[facility]In the event this information is protected by the Federal Confidentiality of Alcohol and Drug Abuse Patient Records regulations: The Federal rules restrict any use of the information to criminally investigate or prosecute any alcohol or drug abuse patient.[facility]In the event this information is protected by the Federal Confidentiality of Alcohol and Drug Abuse Patient Records regulations: The Federal rules restrict any use of the information to criminally investigate or prosecute any alcohol or drug abuse patient.[facility]In the event this information is protected by the Federal Confidentiality of Alcohol and Drug Abuse Patient Records regulations: The Federal rules restrict any use of the information to criminally investigate or prosecute any alcohol or drug abuse patient.[facility]In the event this information is protected by the Federal Confidentiality of Alcohol and Drug Abuse Patient Records regulations: The Federal rules restrict any use of the information to criminally investigate or prosecute any alcohol or drug abuse patient.[facility]In the event this information is protected by the Federal Confidentiality of Alcohol and Drug Abuse Patient Records regulations: The Federal rules restrict any use of the information to criminally investigate or prosecute any alcohol or drug abuse patient.[facility]In the event this information is protected by the Federal Confidentiality of Alcohol and Drug Abuse Patient Records regulations: The Federal rules restrict any use of the information to criminally investigate or prosecute any alcohol or drug abuse patient.[facility]In the event this information is protected by the Federal Confidentiality of Alcohol and Drug Abuse Patient Records regulations: The Federal rules restrict any use of the information to criminally investigate or prosecute any alcohol or drug abuse patient.[facility]In the event this information is protected by the Federal Confidentiality of Alcohol and Drug Abuse Patient Records regulations: The Federal rules restrict any use of the information to criminally investigate or prosecute any alcohol or drug abuse patient.[facility]In the event this information is protected by the Federal Confidentiality of Alcohol and Drug Abuse Patient Records regulations: The Federal rules restrict any use of the information to criminally investigate or prosecute any alcohol or drug abuse patient.[facility]In the event this information is protected by the Federal Confidentiality of Alcohol and Drug Abuse Patient Records regulations: The Federal rules restrict any use of the information to criminally investigate or prosecute any alcohol or drug abuse patient.[facility]In the event this information is protected by the Federal Confidentiality of Alcohol and Drug Abuse Patient Records regulations: The Federal rules restrict any use of the information to criminally investigate or prosecute any alcohol or drug abuse patient.[facility]In the event this information is protected by the Federal Confidentiality of Alcohol and Drug Abuse Patient Records regulations: The Federal rules restrict any use of the information to criminally investigate or prosecute any alcohol or drug abuse patient.[facility]In the event this information is protected by the Federal Confidentiality of Alcohol and Drug Abuse Patient Records regulations: The Federal rules restrict any use of the information to criminally investigate or prosecute any alcohol or drug abuse patient.[facility]In the event this information is protected by the Federal Confidentiality of Alcohol and Drug Abuse Patient Records regulations: The Federal rules restrict any use of the information to criminally investigate or prosecute any alcohol or drug abuse patient.[facility]In the event this information is protected by the Federal Confidentiality of Alcohol and Drug Abuse Patient Records regulations: The Federal rules restrict any use of the information to criminally investigate or prosecute any alcohol or drug abuse patient.[facility]In the event this information is protected by the Federal Confidentiality of Alcohol and Drug Abuse Patient Records regulations: The Federal rules restrict any use of the information to criminally investigate or prosecute any alcohol or drug abuse patient.[facility]In the event this information is protected by the Federal Confidentiality of Alcohol and Drug Abuse Patient Records regulations: The Federal rules restrict any use of the information to criminally investigate or prosecute any alcohol or drug abuse patient.[facility]In the event this information is protected by the Federal Confidentiality of Alcohol and Drug Abuse Patient Records regulations: The Federal rules restrict any use of the information to criminally investigate or prosecute any alcohol or drug abuse patient.[facility]In the event this information is protected by the Federal Confidentiality of Alcohol and Drug Abuse Patient Records regulations: The Federal rules restrict any use of the information to criminally investigate or prosecute any alcohol or drug abuse patient.[facility] PrebleIn the event this information is protected by the Federal Confidentiality of Alcohol and Drug Abuse Patient Records regulations: The Federal rules restrict any use of the information to criminally investigate or prosecute any alcohol or drug abuse patient.[facility] PrebleIn the event this information is protected by the Federal Confidentiality of Alcohol and Drug Abuse Patient Records regulations: The Federal rules restrict any use of the information to criminally investigate or prosecute any alcohol or drug abuse patient.[facility] PrebleIn the event this information is protected by the Federal Confidentiality of Alcohol and Drug Abuse Patient Records regulations: The Federal rules restrict any use of the information to criminally investigate or prosecute any alcohol or drug abuse patient.[facility] PrebleIn the event this information is protected by the Federal Confidentiality of Alcohol and Drug Abuse Patient Records regulations: The Federal rules restrict any use of the information to criminally investigate or prosecute any alcohol or drug abuse patient.[facility] PrebleIn the event this information is protected by the Federal Confidentiality of Alcohol and Drug Abuse Patient Records regulations: The Federal rules restrict any use of the information to criminally investigate or prosecute any alcohol or drug abuse patient.[facility] PrebleIn the event this information is protected by the Federal Confidentiality of Alcohol and Drug Abuse Patient Records regulations: The Federal rules restrict any use of the information to criminally investigate or prosecute any alcohol or drug abuse patient.[facility] PrebleIn the event this information is protected by the Federal Confidentiality of Alcohol and Drug Abuse Patient Records regulations: The Federal rules restrict any use of the information to criminally investigate or prosecute any alcohol or drug abuse patient.[facility]bleIn the event this information is protected by the Federal Confidentiality of Alcohol and Drug Abuse Patient Records regulations: The Federal rules restrict any use of the information to criminally investigate or prosecute any alcohol or drug abuse patient.[facility]bleIn the event this information is protected by the Federal Confidentiality of Alcohol and Drug Abuse Patient Records regulations: The Federal rules restrict any use of the information to criminally investigate or prosecute any alcohol or drug abuse patient.[facility]bleIn the event this information is protected by the Federal Confidentiality of Alcohol and Drug Abuse Patient Records regulations: The Federal rules restrict any use of the information to criminally investigate or prosecute any alcohol or drug abuse patient.[facility]bleIn the event this information is protected by the Federal Confidentiality of Alcohol and Drug Abuse Patient Records regulations: The Federal rules restrict any use of the information to criminally investigate or prosecute any alcohol or drug abuse patient.[facility] PrebleIn the event this information is protected by the Federal Confidentiality of Alcohol and Drug Abuse Patient Records regulations: The Federal rules restrict any use of the information to criminally investigate or prosecute any alcohol or drug abuse patient.[facility]bleIn the event this information is protected by the Federal Confidentiality of Alcohol and Drug Abuse Patient Records regulations: The Federal rules restrict any use of the information to criminally investigate or prosecute any alcohol or drug abuse patient.[facility]bleIn the event this information is protected by the Federal Confidentiality of Alcohol and Drug Abuse Patient Records regulations: The Federal rules restrict any use of the information to criminally investigate or prosecute any alcohol or drug abuse patient.[facility] PrebleIn the event this information is protected by the Federal Confidentiality of Alcohol and Drug Abuse Patient Records regulations: The Federal rules restrict any use of the information to criminally investigate or prosecute any alcohol or drug abuse patient.[facility] PrebleIn the event this information is protected by the Federal Confidentiality of Alcohol and Drug Abuse Patient Records regulations: The Federal rules restrict any use of the information to criminally investigate or prosecute any alcohol or drug abuse patient.[facility] PrebleIn the event this information is protected by the Federal Confidentiality of Alcohol and Drug Abuse Patient Records regulations: The Federal rules restrict any use of the information to criminally investigate or prosecute any alcohol or drug abuse patient.[facility] Reason for Visit (unrecogniz ed section and [...] BREAST UNI REAL TIME WITH IMAGE LIMITED Austin, Brenda, LEATHER CARTRIDGE BELT MAKER.SUSTAINABILITY CONSULTANT [address] [place] [address] Br Imaging [address] [place] [address] Referral ID Status Reason Start Date Expiration Date V isits Requested Visits Authorized [id number] Closed Auto-Generate d Referral 09/05/2021 10/05/2022 1 1 Reason Comments Radiology Mammogram Specialty Diagnoses / Procedures Referred By Contac t Referred To Contact BR IMAGING Diagnoses Abnormal mammogram Procedures SABINO DIAGNOSTIC LT DIAGNOSTIC MAMMOGRAPHY COMPUTER-AIDED DETCJ UNI Vonnie, Brenda, LEATHER CARTRIDGE BELT MAKER.SUSTAINABILITY CONSULTANT [address] [place] [address] Br Imaging [address] [place] [address] Referral ID Status Reason Start Date Expiration Date V isits Requested Visits Authorized [id number] Closed Auto-Generate d Referral 09/05/2021 10/05/2022 1 [...] NEW HIGH MDM 60-74 MINUTES Twyla Cuevas APRN.SUSTAINABILITY CONSULTANT [address] [place] [address] Referral ID Status Reason Start Date Expiration Date Visits Requested Visits Authorized [id number] Pending Review PCP Requested Referral 10/11/2022 10/11/2023 1 1 Reason Onset Date Comments Refill Request 12/20/[address] Specialty Diagnoses / Procedures Referred By Contac t Referred To Contact CT IMAGING Diagnoses Lung nodules Procedures CT CHEST WO IVCON DIAGNOSTIC COMPUTED TOMOGRAPHY THORAX W/O Florence Duncan MD [address] [place] [address] Ct Imaging [facility] Referral ID Status Reason Start Date Expiration Date V isits Requested Visits Authorized [id number] Closed Auto-Generate d Referral 11/29/2021 12/29/2022 1 [...] Reason Comments Discharge Skilled Rehab Discharged from [facility] Reason Onset Date Comments Refill Request 07/17/2023 [...] CT Specialty Diagnoses / Procedures Referred By Contfabian t Referred To Contact CT IMAGING Diagnoses Disseminated histoplasmosis Procedures CT CHEST WO IVCON DIAGNOSTIC COMPUTED TOMOGRAPHY THORAX W/O CNTREGIT Geno Hart MD [address] [place] [address] [place] [address] Referral ID Status Reason Start Date Expiration Date V isits Requested Visits Authorized [id number] Closed Auto-Generate d Referral 08/30/2023 02/19/2024 1 1 Reason Onset Date Comments Refill Request 08/30/2023 Reason Onset Date Comments Community Monitoring Outreach 08/31/2023 F/ U engagement [facility] Home Monitoring Reason Comments Histoplasmosis Reason Comments Hospital F/U [facility] ED/Hospital disc harge 08/18/23 Reason Comments [...] years)Recent BLE Edema and Discomfort- compression/diuretics effective[facility] for BleedingDoesn't like taking diuretics when [...] Pericardial effusion Procedures CONSULT TO CARDIOLOGY OFFICE/OUTPATIENT [facility] 60 MINUTES Swanson, Jimbo, LEATHER CARTRIDGE BELT MAKER.SALES INCENTIVE ANALYST [address] [place] [address] Referral ID Status Reason Start Date Expiration Date V isits Requested Visits Authorized [id number] Closed PCP Requested Referral 10/11/2023 10/10/2024 1 [...] J1 Specialty Diagnoses / Procedures Referred By Francoisac t Referred To Contact CT IMAGING Diagnoses Nonrheumatic aortic valve stenosis Encounter for preprocedural cardiovascular examination Procedures CTA CHEST/ABD/PEL (GATED) W IVCON CT ANGIOGRAPHY CHEST W/CONTRAST/NONCONTRAST CT ANGIO ABD&PLVIS CNTRST MTRL W/WO CNTRST IMGES TrentMonica Olivares, LEATHER CARTRIDGE BELT MAKER.SUSTAINABILITY CONSULTANT [id number] Imaging [place] [address] Referral ID Status Reason Start Date Expiration Date V isits Requested Visits Authorized [id number] Closed Auto-Generate d Referral 01/08/2024 02/06/2025 1 1 Reason Comments Patient Education Reason Comments Spirometry Specialty Diagnoses / Procedures Referred By Contac t Referred To Contact [facility] Diagnoses Nonrheumatic aortic valve stenosis Procedures SPIROMETRY BASELINE ONLY SPMTRY W/VC EXPIRATORY [place] W/WO MXML VOL VNTJ TrentMonica Olivares, LEATHER CARTRIDGE BELT MAKER.SUSTAINABILITY CONSULTANT [address] [place] [address] Respiratory [place] [address] [place] [address] Referral ID Status Reason Start Date Expiration Date V isits Requested Visits Authorized [id number] Closed Auto-Generate d Referral 01/08/2024 02/06/2025 1 1 Specialty Diagnoses / Procedures Referred By Contac t Referred To Contact [facility] Diagnoses Nonrheumatic aortic valve stenosis Procedures LUNG DIFFUSION CAPACITY (DLCO) DIFFUSING CAPACITY Monica Aguila, LEATHER CARTRIDGE BELT MAKER.SUSTAINABILITY CONSULTANT [address] [place] [address] Respiratory [place] [address] [place] [address] Referral ID Status Reason Start Date Expiration Date V isits Requested Visits Authorized [id number] Closed Auto-Generate d Referral 01/08/2024 02/06/2025 1 1 Reason Comments Aortic Stenosis Reason Comments Radiology NM Specialty Diagnoses / Procedures Referred By Contac t Referred To Contact MOLECULAR & FUNCTIONAL IMAGING Diagnoses Nonrheumatic aortic valve stenosis Procedures NM SPECT/CT CARDIAC AMYLOID RP LOCLZJ MARY SPECT W/CT 1 AREA 1 DAY IMAGING Monica Aguila, LEATHER CARTRIDGE BELT MAKER.SUSTAINABILITY CONSULTANT [address] [place] [address] Molecular & Functional Imaging [address] [id number] Referral ID Status Reason Start Date Expiration Date V isits Requested Visits Authorized [id number] Closed Auto-Generate d Referral 01/08/2024 02/06/2025 1 1 Reason Onset Date Comments Population Health Navigation Outreach 03/26/2024 [employer] High Risk - Attempt 2 Reason Onset Date Comments Population Health Navigation Outreach 03/31/2024 [employer] High Risk - Attempt 3 Reason Comments TAVR Meeting Reason Comments Insurance Authorization Reason Comments Referral Information Surgical Consult [facility] Dr. Francis Reason Comments Appointment TAVR scheduling [...] Care Teams (unrecognized sec tion and content) Body Care Manager Relationship Specialty Start Date End Date Claudine Durán MD [address] [place], [place] [id number] PCP - General Internal Medicine 03/02/16 Will Hurley [address] [place], [place] [address] Referring Rheumatology 04/09/18 Gold Colón, composition siding workerOrder Filler Internal Medicine 07/22/20 Body Care Manager Relationship Specialty Start Date End Date Claudine Durán MD [address] [place], [place] [id number] PCP - General Internal Medicine 03/02/16 Will granger[address] [place] [address] Referring Rheumatology 04/09/18 Gold Colón, composition siding workerOrder Filler Internal Medicine 07/22/20 Body Care Manager Relationship Specialty Start Date End Date Claudine Durán MD [address] [place], [place] [id number] PCP - General Internal Medicine 03/02/16 Will [address] [place] [address] Referring Rheumatology 04/09/18 Gold Colón, composition siding workerOrder Filler Internal Medicine 07/22/20 Body Care Manager Relationship Specialty Start Date End Date Claudine Durán MD [address] [place], [place] [id number] PCP - General Internal Medicine 03/02/16 Will Hurley [address] [facility] [address] Referring Rheumatology 04/09/18 Gold Colón, composition siding workerOrder Filler Internal Medicine 07/22/20 Body Care Manager Relationship Specialty Start Date End Date Claudine Durán MD [address] [place] [address] PCP - General Internal Medicine 03/02/16 Will Hurley [address] [place] [place] [address] Referring Rheumatology 04/09/18 Gold Colón, composition siding workerOrder Filler Internal Medicine 07/22/20 Body Care Manager Relationship Specialty Start Date End Date Claudine Durán MD [address] [place] [address] PCP - General Internal Medicine 03/02/16 Will Hurley[address] [place] [address] Referring Rheumatology 04/09/18 Gold Colón, composition siding workerOrder Filler Internal Medicine 07/22/20 Body Care Manager Relationship Specialty Start Date End Date Claudine Durán MD [address] [place], [place] [id number] PCP - General Internal Medicine 03/02/16 Will Hurley[address] [place] [address] Referring Rheumatology 04/09/18 Gold Colón, composition siding workerOrder Filler Internal Medicine 07/22/20 Body Care Manager Relationship Specialty Start Date End Date Claudine Durán MD [address] [place] [address] PCP - General Internal Medicine 03/02/16 Will [place] [address] Referring Rheumatology 04/09/18 Gold Colón, composition siding workerOrder Filler Internal Medicine 07/22/20 Body Care Manager Relationship Specialty Start Date End Date Claudine Durán MD [address] [place] [address] PCP - General Internal Medicine 03/02/16 Will Hurley [address] [place] [address] Referring Rheumatology 04/09/18 Gold Colón, composition siding workerOrder Filler Internal Medicine 07/22/20 Body Care Manager Relationship Specialty Start Date End Date Claudine Durán MD [address] [place] [address] PCP - General Internal Medicine 03/02/16 Will Hurley[address] [place] [address] Referring Rheumatology 04/09/18 Gold Colón RN Order Filler Internal Medicine 07/22/20 Body Care Manager Relationship Specialty Start Date End Date Claudine Durán MD [address] [place] [address] PCP - General Internal Medicine 03/02/16 Will Hurley[address] [place] [address] Referring Rheumatology 04/09/18 Gold Colón, composition siding workerOrder Filler Internal Medicine 07/22/20 Body Care Manager Relationship Specialty Start Date End Date Claudine Durán MD [address] [place] [address] PCP - General Internal Medicine 03/02/16 Will [place] [address] Referring Rheumatology 04/09/18 Gold Colón, composition siding workerOrder Filler Internal Medicine 07/22/20 Body Care Manager Relationship Specialty Start Date End Date Claudine Durán MD [address] [facility], [place] [address]71 PCP - General Internal Medicine 03/02/16 Will Hurley [address] [place] [address] Referring Rheumatology 04/09/18 Gold Colón, composition siding workerOrder Filler Internal Medicine 07/22/20 Body Care Manager Relationship Specialty Start Date End Date Claudine Durán MD [address] [place], [place] [address]191 PCP - General Internal Medicine 03/02/16 Will Hurley [address] [place] [address] Referring Rheumatology 04/09/18 Gold Colón, composition siding workerOrder Filler Internal Medicine 07/22/20 Body Care Manager Relationship Specialty Start Date End Date Claudine Durán MD [address] [facility], [place] [id number] PCP - General Internal Medicine 03/02/16 Will Hurley [address] [place] [address] Referring Rheumatology 04/09/18 Gold Colón, composition siding workerOrder Filler Internal Medicine 07/22/20 Body Care Manager Relationship Specialty Start Date End Date Claudine Durán MD [address] [place] [address] PCP - General Internal Medicine 03/02/16 Will Hurley[address] [place] [address] Referring Rheumatology 04/09/18 Gold Colón, composition siding workerOrder Filler Internal Medicine 07/22/20 Body Care Manager Relationship Specialty Start Date End Date Claudine Durán MD [address] [facility], [place] [address] PCP - General Internal Medicine 03/02/16 Will Hurley [address] [place] [address] Referring Rheumatology 04/09/18 Gold Colón, composition siding workerOrder Filler Internal Medicine 07/22/20 Body Care Manager Relationship Specialty Start Date End Date Claudine Durán MD [address] [place], [place] 67[address] PCP - General Internal Medicine 03/02/16 Will Hurley [address] [place] [address] Referring Rheumatology 04/09/18 Gold Colón, composition siding workerOrder Filler Internal Medicine 07/22/20 Body Care Manager Relationship Specialty Start Date End Date Claudine Durán MD [address] [place] [address] PCP - General Internal Medicine 03/02/16 Will Hurley [address] [facility], [place] [address] Referring Rheumatology 04/09/18 Lulú Ramos, PAULA [address] [place] [address] Order Filler Family Medicine 07/22/20 Body Care Manager Relationship Specialty Start Date End Date Claudine Durán MD [address] [place], [place] 6[address]157 PCP - General Internal Medicine 03/02/16 Will granger [address] [place] [address] Referring Rheumatology 04/09/18 Gold Colón, composition siding workerOrder Filler Internal Medicine 07/22/20 12/20/21 Lulú Ramos, PAULA [address] [place] [address] Order Filler Family Medicine 07/22/20 Body Care Manager Relationship Specialty Start Date End Date Claudine Durán MD [address] [place] [address] PCP - General Internal Medicine 03/02/16 Will Hurley [address] [facility] [place] [address] Referring Rheumatology 04/09/18 Lulú Ramos, RN [address] [place] [address] Order Filler Family Medicine 07/22/20 Body Care Manager Relationship Specialty Start Date End Date Claudine Durán MD [address] [place] [address] PCP - General Internal Medicine 03/02/16 Will Hurley [address] [facility] [place] [address] Referring Rheumatology 04/09/18 Lulú Ramos, RN [address] [place] [address] Order Filler Family Medicine 07/22/20 Body Care Manager Relationship Specialty Start Date End Date Claudine Durán MD [address] [place] [address] PCP - General Internal Medicine 03/02/16 Will Hurley[address] [place] [address] Referring Rheumatology 04/09/18 Lulú Ramos, RN [address] [place] [address] Order Filler Family Medicine 07/22/20 Body Care Manager Relationship Specialty Start Date End Date Claudine Durán MD [address] [place] [address] PCP - General Internal Medicine 03/02/16 Will Hurley [facility] [place] [address] Referring Rheumatology 04/09/18 Lulú Ramos, PAULA [address] [place] [address] Order Filler Family Medicine 07/22/20 Body Care Manager Relationship Specialty Start Date End Date Claudine Durán MD [address] [place] [address] PCP - General Internal Medicine 03/02/16 Will Hurley [address] [place] [address], [place] [address] Referring Rheumatology 04/09/18 Lulú Ramos, PAULA [address] [place] [address] Order Filler Family Medicine 12/20/21 Body Care Manager Relationship Specialty Start Date End Date Claudine Durán MD [address] [place] [address] PCP - General Internal Medicine 03/02/16 Will Hurley [facility] [place] [address] Referring Rheumatology 04/09/18 Lulú Ramos, RN [address] [facility], [place] [address] Order Filler Family Medicine 12/20/21 Body Care Manager Relationship Specialty Start Date End Date Claudine Durán MD [address] [place] [address] PCP - General Internal Medicine 03/02/16 Will Hurley [address] [place] [address] Referring Rheumatology 04/09/18 Lulú Ramos, RN [address] [facility] [place] [address] Order Filler Family Medicine 12/20/21 Body Care Manager Relationship Specialty Start Date End Date Claudine Durán MD [address] [place] [address] PCP - General Internal Medicine 03/02/16 Will granger [facility] [place] [address] Referring Rheumatology 04/09/18 Lulú Ramos, PAULA [address] [facility] [place] [address] [facility] 12/20/21 Body Care Manager Relationship Specialty Start Date End Date Claudine Durán MD [address] [place] [address] PCP - General Internal Medicine 03/02/16 Will Hurley [facility] [place] [address] Referring Rheumatology 04/09/18 Lulú Ramos, PAULA [address] [facility], [place] 03[address] Order Filler Family Medicine 12/20/21 Body Care Manager Relationship Specialty Start Date End Date Claudine Durán MD [address] [place] [address] PCP - General Internal Medicine 03/02/16 Will Hurley [facility] [place] [address] Referring Rheumatology 04/09/18 Lulú Ramos, RN [address] [place] [address] Order Filler Family Medicine 12/20/21 Body Care Manager Relationship Specialty Start Date End Date Claudine Durán MD [address] [place] [address] PCP - General Internal Medicine 03/02/16 Will Hurley [facility] [place] [address] Referring Rheumatology 04/09/18 Lulú Ramos, PAULA [address] [place] [address] Order Filler Family Medicine 12/20/21 Body Care Manager Relationship Specialty Start Date End Date Claudine Durán MD [address] [place] [address] PCP - General Internal Medicine 03/02/16 Will Hurley N [facility] [place] [address] Referring Rheumatology 04/09/18 Lulú Ramos, PAULA [address] [place] [address] Order Filler Family Medicine 12/20/21 Body Care Manager Relationship Specialty Start Date End Date Caludine Durán MD [address] [place] [address] PCP - General Internal Medicine 03/02/16 Will Hurley [facility] N [facility] [place] [address] Referring Rheumatology 04/09/18 Lulú Ramos, PAULA [address] [facility] [place] [address] Order Filler Family [facility] 12/20/21 Body Care Manager Relationship Specialty Start Date End Date Claudine Durán MD [address] [place] [address] PCP - General Internal Medicine 03/02/16 Will Hurley1 [address] [facility] [address] Referring Rheumatology 04/09/18 Lulú Ramos, PAULA [address] [facility] [place] [address] [facility] 12/20/21 Body Care Manager Relationship Specialty Start Date End Date Claudine Durán MD [address] [place] [address] PCP - General Internal Medicine 03/02/16 Will Hurley [address] [facility] [place] [address] Referring Rheumatology 04/09/18 Ilda Miller RN [address] [facility] [place] [address] Order Filler 07/27/22 Body Care Manager Relationship Specialty Start Date End Date Claudine Durán MD [address] [place] [address] PCP - General Internal Medicine 03/02/16 Will Hurley [address] [facility] [place] [address] Referring Rheumatology 04/09/18 Ilda Miller RN [address] [facility] [place] [address] Order Filler 07/27/22 Body Care Manager Relationship Specialty Start Date End Date Claudine Durán MD [address] [place] [address] PCP - General Internal Medicine 03/02/16 Will Hurley [address] [facility] [address] Referring Rheumatology 04/09/18 Ilda Miller, PAULA [address] [place] [address] Order Filler 07/27/22 Body Care Manager Relationship Specialty Start Date End Date Claudine Durán MD [address] [place] [address] PCP - General Internal Medicine 03/02/16 Will Hurley [address] [facility] [place] [address] Referring Rheumatology 04/09/18 Ilda Miller, PAULA [address] [place] [address] Order Filler 07/27/22 Body Care Manager Relationship Specialty Start Date End Date Claudine Durán MD [address] [place] [address] PCP - General Internal Medicine 03/02/16 Will Hurley [address] [facility] [place] [address] Referring Rheumatology 04/09/18 Ilda Miller RN [address] [place] [address] Order Filler 07/27/22 Body Care Manager Relationship Specialty Start Date End Date Claudine Durán MD [address] [place] [address] PCP - General Internal Medicine 03/02/16 Will Hurley [address] [facility] [place] [address] Referring Rheumatology 04/09/18 Ilda Miller, PAULA [address] [place] [address] Order Filler 07/27/22 Body Care Manager Relationship Specialty Start Date End Date Claudine Durán MD [address] [place] [address] PCP - General Internal Medicine 03/02/16 Will Hurley [address] [facility] [place] [address] Referring Rheumatology 04/09/18 Ilda Miller RN [address] [place] [address] Order Filler 07/27/22 Body Care Manager Relationship Specialty Start Date End Date Claudine Durán MD [address] [place] [address] PCP - General Internal Medicine 03/02/16 Will Hurley [address] [facility] [place] [address] Referring Rheumatology 04/09/18 Ilda Miller RN [address] [place] [address] Order Filler 07/27/22 Body Care Manager Relationship Specialty Start Date End Date Claudine Durán MD [address] [place] [address] PCP - General Internal Medicine 03/02/16 Will Hurley [address] [facility] [place] [address] Referring Rheumatology 04/09/18 Ilda Miller, PAULA [address] [place] [address] Order Filler 07/27/22 Body Care Manager Relationship Specialty Start Date End Date Claudine Durán MD [address] [place] [address] PCP - General Internal Medicine 03/02/16 Will Hurley [address] [facility] [address]53 Referring Rheumatology 04/09/18 Ilda Miller RN [address] [place] [address] Order Filler 07/27/22 Body Care Manager Relationship Specialty Start Date End Date Claudine Durán MD [address] [place] [address] PCP - General Internal Medicine 03/02/16 Will Hurley [address] [facility] [address] Referring Rheumatology 04/09/18 Ilda Miller, PAULA [address] [place] [address] Order Filler 07/27/22 Body Care Manager Relationship Specialty Start Date End Date Claudine Durán MD [address] [place], [place] 456551 PCP - General Internal Medicine 03/02/16 Will Hurley [address] [facility], [place] 28[address]83 Referring Rheumatology 04/09/18 Ilda Miller, PAULA [address] [place], [place] 7995531 Order Filler 07/27/22 Body Care Manager Relationship Specialty Start Date End Date Claudine Durán MD [address] [place] [address] PCP - General Internal Medicine 03/02/16 Will Hurley [address] [facility], [place] [address]363 Referring Rheumatology 04/09/18 Lulú Ramos RN [address] [place] [address] Order Filler Family Medicine 12/20/2107/26 Body Care Manager Relationship Specialty Start Date End Date Claudine Durán MD [address] [place] [address] PCP - General Internal Medicine 03/02/16 Will Hurley [address] [facility] [place] [address] Referring Rheumatology 04/09/18 Ilda Miller, PAULA [address] [place], [place] [id number] Order Filler 07/27/22 Team Status: Active Member Role Status Dates Dr. Claudine Durán MD Family Provider Active Dr. Claudine Durán MD Primary Care Provider Active Team Status: Inactive Member Role Status Dates Dr. Claudine Durán MD Primary Care Provider Active Dr. Bob Elias , Emergency Provider Active Body Care Manager Relationship Specialty Start Date End Date Claudine Durán MD [address] [place] [address] PCP - General Internal Medicine 03/02/16 Will Hurley [address] [place] [address] Referring Rheumatology 04/09/18 Ilda Miller, RN [address] [place], [place] [id number] Order Filler 07/27/22 Team Status: Inactive Member Role Status Dates Dr. Claudine Durán MD Primary Care Provider Active Dr. Bob Elias DO Attending Provider, Emergency P ed Active Team Status: Active Member Role Status Dates Dr. Claudine Durán MD Primary Care Provider Active Dr. Martín Cornejo DO Emergency Provider Active Dr. Laine Veras MD Admit Provider, Attending Provid er Active Body Care Manager Relationship Specialty Start Date End Date Claudine Durán MD [address] [place] [address] PCP - General Internal Medicine 03/02/16 Will Hurley [address] [place] [address] Referring Rheumatology 04/09/18 Ilda Miller, PAULA [address] [place] [address] Order Filler 07/27/22 Lynne Maynard, composition siding worker Sewer Cleaner 03/26/23 Team Status: Active Member Role Status [...] Dr. Alisa Mathew MD Attending Provider Active Body Care Manager Relationship Specialty Start Date End Date Claudine Durán MD [address] [place] [address] PCP - General Internal Medicine 03/02/16 Will Hurley [address] [place] [address] Referring Rheumatology 04/09/18 Ilda Miller RN [address] [place], [place] 0771031 Order Filler 07/27/22 Lynne Maynard, composition siding worker Sewer Cleaner 03/26/23 Body Care Manager Relationship Specialty Start Date End Date Claudine Durán MD [address] [place] [address] PCP - General Internal Medicine 03/02/16 Will Hurley [address] [place] [address] Referring Rheumatology 04/09/18 Ilda Miller RN [address] [place] [address] Order Filler 07/27/22 Lynne Maynard, composition siding worker Sewer Cleaner 03/26/23 Team Status: Active Member Role Status [...] , DO Other Provider Active Rosalina Herrera LABEL CUTTER, LABEL CUTTER-C Other Provider Active Team Status: Active Member [...] Stevan Rodríguez MD Other Provider Active Dr. Jnig Reyes MD Other Provider Active Dr. Efrain [...] Jorgito Agarwal , DO Other Provider Active Rosalinadenise Herrera LABEL CUTTER, LABEL CUTTER-C Other Provider Active Team Status: Inactive Member [...] , DO Other Provider Active Rosalina Herrera LABEL CUTTER, LABEL CUTTER-C Other Provider Active Team Status: Active Member [...] ing Provider Active Dr. Martín Cornejo , DO [...] Sandra MD Other Provider Active Dr. Chris Ryoal MD Other Provider Active Dr. Leobardo Calloway MD Other Provider Active Dr. Jorgito Agarwal , Other Provider Active Rosalina Herrera LABEL CUTTER, LABEL CUTTER-C Other Provider Active Team Status: Active Member [...] MD Admit Provider, Attending Provid er Active Body Care Manager Relationship Specialty Start Date End Date Claudine Durán MD [address] [facility], [place] 3[address]81 PCP - General Internal Medicine 03/02/16 Will Hurley [address] [place] [address] Referring Rheumatology 04/09/18 Ilda Miller RN [address] [place] [address] Order Filler 07/27/22 Team Status: Active Member Role Status Dates Dr. Claudine Durán MD Primary Care Provider Active Zaynab NOLEN MD Attending Provider Active Team Status: Inactive Member Role Status Dates Dr. Claudine Durán MD Primary Care Provider Active Zaynab NOLEN MD Attending Provider Active Body Care Manager Relationship Specialty Start Date End Date Claudine Durán MD [address] [place] [address] PCP - General Internal Medicine 03/02/16 Will Hurley [address] [place] [address] Referring Rheumatology 04/09/18 Ilda Miller RN [address] [place] [address] Order Filler 07/27/22 Team Status: Inactive Member Role Status Dates Dr. Claudine Durán MD Primary Care Provider Active Fadia Pizarro LABEL CUTTER, LABEL CUTTER-C Attending Provider Active Team Status: Inactive Member Role Status Dates Dr. Claudine Durán MD Primary Care Provider Active Dr. Zaynab Pina MD Attending Provider Active Body Care Manager Relationship Specialty Start Date End Date Claudine Durán MD [address] [place], [place] 374811 PCP - General Internal Medicine 03/02/16 Will Hurley [address] [facility] [place] [address] Referring Rheumatology 04/09/18 Ilda Miller, RN [address] [facility] [place] [address] Order Filler 07/27/22 Body Care Manager Relationship Specialty Start Date End Date Claudine Durán MD [address] [place] [address] PCP - General Internal Medicine 03/02/16 Will Hurley [address] [facility] [place] [address] Referring Rheumatology 04/09/18 Ilda Miller, PAULA [address] [facility] [place] [address] Order Filler 07/27/22 Body Care Manager Relationship Specialty Start Date End Date Claudine Durán MD [address] [place] [address] PCP - General Internal Medicine 03/02/16 Will Hurley [address] [facility] [place] [address] Referring Rheumatology 04/09/18 Ilda Miller, PAULA [address] [facility] [place] [address] Order Filler 07/27/22 Body Care Manager Relationship Specialty Start Date End Date Claudine Durán MD [address] [place] [address] PCP - General Internal Medicine 03/02/16 Will Hurley [address] [facility] [place] [address] Referring Rheumatology 04/09/18 Ilda Miller, RN [address] [place] [address] Order Filler 07/27/22 Body Care Manager Relationship Specialty Start Date End Date Claudine Durán MD [address] [place] [address] PCP - General Internal Medicine 03/02/16 Will Hurley [address] [facility] [place] [address] Referring Rheumatology 04/09/18 Ilda Miller RN [address] [place] [address] Order Filler 07/27/22 Body Care Manager Relationship Specialty Start Date End Date Claudine Durán MD [address] [place] [address] PCP - General Internal Medicine 03/02/16 Will Hurley [address] [facility] [place] [address] Referring Rheumatology 04/09/18 Ilda Miller RN [address] [place] [address] Order Filler 07/27/22 Body Care Manager Relationship Specialty Start Date End Date Claudine Durán MD [address] [place] [address] PCP - General Internal Medicine 03/02/16 Will Hurley [address] [place] [address] Referring Rheumatology 04/09/18 Ilda Miller, PAULA [address] [place] [address] Order Filler 07/27/22 Body Care Manager Relationship Specialty Start Date End Date Claudine Durán MD [address] [place], [place] 498771 PCP - General Internal Medicine 03/02/16 Will Hurley [address] [facility] [place] [address] Referring Rheumatology 04/09/18 Ilda Miller RN [address] [place] [address] Order Filler 07/27/22 Body Care Manager Relationship Specialty Start Date End Date Claudine Durán MD [address] [place] [address] PCP - General Internal Medicine 03/02/16 Will Hurley [address] [facility] [place] [address] Referring Rheumatology 04/09/18 Ilda Miller RN [address] [place] [address] Order Filler 07/27/22 Body Care Manager Relationship Specialty Start Date End Date Claudine Durán MD [address] [place], [place] [address]12821 PCP - General Internal Medicine 03/02/16 Will Hurley [address] [facility] [place] [address] Referring Rheumatology 04/09/18 Ilda Miller, RN [address] [facility] [place] [address] Order Filler 07/27/22 Body Care Manager Relationship Specialty Start Date End Date Claudine Durán MD [address] [place] [address] PCP - General Internal Medicine 03/02/16 Will Hurley [address] [facility] [place] [address] Referring Rheumatology 04/09/18 Ilda Miller RN [address] [place] [address] Order Filler 07/27/22 Body Care Manager Relationship Specialty Start Date End Date Claudine Durán MD [address] [place] [address] PCP - General Internal Medicine 03/02/16 Will Hurley [address] [facility] [place] [address] Referring Rheumatology 04/09/18 Ilda Miller RN [address] [place] [address] Order Filler 07/27/22 Body Care Manager Relationship Specialty Start Date End Date Claudine Durán MD [address] [place] [address] PCP - General Internal Medicine 03/02/16 Will Hurley [address] [facility] [place] [address] Referring Rheumatology 04/09/18 Ilda Miller, PAULA [address] [facility] [place] [address] Order Filler 07/27/22 Body Care Manager Relationship Specialty Start Date End Date Claudine Durán MD [address] [place] [address] PCP - General Internal Medicine 03/02/16 Will Hurley [address] [facility] [place] [address] Referring Rheumatology 04/09/18 Ilda Miller RN [address] [facility] [place] [address] Order Filler 07/27/22 Body Care Manager Relationship Specialty Start Date End Date Claudine Durán MD [address] [place] [address] PCP - General Internal Medicine 03/02/16 Will Hurley [address] [facility] [address] Referring Rheumatology 04/09/18 Ilda Miller RN [address] [facility] [place] [address] Order Filler 07/27/22 Body Care Manager Relationship Specialty Start Date End Date Claudine Durán MD [address] [place] [address] PCP - General Internal Medicine 03/02/16 Will Hurley [address] [facility] [address] Referring Rheumatology 04/09/18 Ilda Miller RN [address] [place], [place] 4868631 Order Filler 07/27/22 Body Care Manager Relationship Specialty Start Date End Date Claudine Durán MD [address] [place] [address] PCP - General Internal Medicine 03/02/16 Will Hurley [address] [facility] [address] Referring Rheumatology 04/09/18 Ilda Miller RN [address] [place] [address] Order Filler 07/27/22 Body Care Manager Relationship Specialty Start Date End Date Claudine Durán MD [address] [place] [address] PCP - General Internal Medicine 03/02/16 Will Hurley [address] [facility] [place] [address] Referring Rheumatology 04/09/18 Ilda Miller RN [address] [place] [address] Order Filler 07/27/22 Body Care Manager Relationship Specialty Start Date End Date Claudine Durán MD [address] [place] [address] PCP - General Internal Medicine 03/02/16 Will Hurley [address] [facility] [address] Referring Rheumatology 04/09/18 Ilda Miller RN [address] [place] [address] Order Filler 07/27/22 Body Care Manager Relationship Specialty Start Date End Date Claudine Durán MD [address] [place] [address] PCP - General Internal Medicine 03/02/16 Will Hurley [address] [facility] [place] [address] Referring Rheumatology 04/09/18 Ilda Miller, PAULA [address] [place] [address] Order Filler 07/27/22 Body Care Manager Relationship Specialty Start Date End Date Claudine Durán MD [address] [place] [address] PCP - General Internal Medicine 03/02/16 Will Hurley [address] [facility] [place] [address] Referring Rheumatology 04/09/18 Ilda Miller, PAULA [address] [place] [address] Order Filler 07/27/22 Body Care Manager Relationship Specialty Start Date End Date Claudine Durán MD [address] [place] [address] PCP - General Internal Medicine 03/02/16 Will Hurley [address] [facility] [address] Referring Rheumatology 04/09/18 Ilda Miller RN [address] [place] [address] Order Filler 07/27/22 Body Care Manager Relationship Specialty Start Date End Date Claudine Durán MD [address] [place] [address] PCP - General Internal Medicine 03/02/16 Will Hurley [address] [facility] [place] [place] [address] Referring Rheumatology 04/09/18 Ilda Miller, PAULA [address] [place] [address] Order Filler 07/27/22 Body Care Manager Relationship Specialty Start Date End Date Claudine Durán MD [address] [place] [address] PCP - General Internal Medicine 03/02/16 Will Hurley [address] [facility] [place] [address] Referring Rheumatology 04/09/18 Ilda Miller RN [address] [place] [address] Order Filler 07/27/22 Body Care Manager Relationship Specialty Start Date End Date Claudine Durán MD [address] [place] [address] PCP - General Internal Medicine 03/02/16 Will Hurley [address] [facility] [place] [address] Referring Rheumatology 04/09/18 Ilda Miller RN [address] [place] [address] Order Filler 07/27/22 Body Care Manager Relationship Specialty Start Date End Date Claudine Durán MD [address] [place] [address] PCP - General Internal Medicine 03/02/16 Will Hurley [address] [facility] [place] [address] Referring Rheumatology 04/09/18 Lulú Ramos RN [address] [facility] [place] [address] Order Filler Family Medicine 12/20/21 Body Care Manager Relationship Specialty Start Date End Date Claudine Durán MD [address] [place] [address] PCP - General Internal Medicine 03/02/16 Will Hurley [address] [place] [address] Referring Rheumatology 04/09/18 Ilda Miller RN [address] [place] [address] Order Filler 07/27/22 Body Care Manager Relationship Specialty Start Date End Date Claudine Durán MD [address] [place] [address] PCP - General Internal Medicine 03/02/16 Will Hurley [address] [place] [address] Referring Rheumatology 04/09/18 Ilda Miller RN [address] [place], [place] 3603031 Order Filler 07/27/22 Body Care Manager Relationship Specialty Start Date End Date Claudine Durán MD [address] [facility] [address] PCP - General Internal Medicine 03/02/16 Will Hurley [address] [place] [address] Referring Rheumatology 04/09/18 Ilda Miller, PAULA [address] [place] [address] Order Filler 07/27/22 Body Care Manager Relationship Specialty Start Date End Date Claudine Durán MD [address] [facility], [place] 205151 PCP - General Internal Medicine 03/02/16 Will Hurley [address] [facility] [place], [place] [address] Referring Rheumatology 04/09/18 Ilda Miller RN [address] [place] [address] Order Filler 07/27/22 Body Care Manager Relationship Specialty Start Date End Date Claudine Durán MD [address] [facility], [place] 29[address]21 PCP - General Internal Medicine 03/02/16 Will Hurley [address] [facility]ITALN[facility]AN[facility]hawn [place], [place] [address] Referring Rheumatology 04/09/18 Ilda Miller, PAULA [address] [place], [place] 4960331 Order Filler 07/27/22 Body Care Manager Relationship Specialty Start Date End Date Claudine Durán MD [address] [facility] [place] [place] [address] PCP - General Internal Medicine 03/02/16 Will Hurley [address] [place] [address] Referring Rheumatology 04/09/18 Ilda Miller RN [address] [place] [address] Order Filler 07/27/22 Jimbo Swanson LEATHER CARTRIDGE BELT MAKER.SALES INCENTIVE ANALYST [address] [place] [address] Angle Shear Operator Internal Medicine 01/28/24 Twyla Cuevas APRN.SUSTAINABILITY CONSULTANT [address] [place] [address] Angle Shear Operator Internal Medicine 01/28/24 Body Care Manager Relationship Specialty Start Date End Date Claudine Durán MD [address] [place] [address] PCP - General Internal Medicine 03/02/16 Will Hurley [address] [facility] [place] [address] Referring Rheumatology 04/09/18 Ilda Miller RN [address] [place] [address] Order Filler 07/27/22 Jimbo Swanson APRN.SALES INCENTIVE ANALYST [address] [place] [address] Angle Shear Operator Internal Medicine 01/28/24 Twyla Cuevas LEATHER CARTRIDGE BELT MAKER.SUSTAINABILITY CONSULTANT [address] [place], [place] 380[address] Angle Shear Operator Internal Medicine 01/28/24 Body Care Manager Relationship Specialty Start Date End Date Claudine Durán MD [address] [place], [place] 234191 PCP - General Internal Medicine 03/02/16 Will Hurley [address] [place], [place] 4323[address] Referring Rheumatology 04/09/18 Jimbo Swanson, LEATHER CARTRIDGE BELT MAKER.SALES INCENTIVE ANALYST [address] [place] [address] Angle Shear Operator Internal Medicine 01/28/24 Twyla Cuevas APRN.SUSTAINABILITY CONSULTANT [address] [place] [address] [facility] Internal Medicine 01/28/24 Body Care Manager Relationship Specialty Start Date End Date Claudine Durán MD [address] [place] [address] PCP - General Internal Medicine 03/02/16 Will Hurley [address] [place] [address] Referring Rheumatology 04/09/18 Jimbo Swanson, LEATHER CARTRIDGE BELT MAKER.SALES INCENTIVE ANALYST [address] [place] [address] [facility] Internal Medicine 01/28/24 Twyla Cuevas APRN.SUSTAINABILITY CONSULTANT [address] [place] [address] [facility] Internal Medicine 01/28/24 Body Care Manager Relationship Specialty Start Date End Date Claudine Durán MD [address] [place] [address] PCP - General Internal Medicine 03/02/16 Will Hurley [address] [place] [address] Referring Rheumatology 04/09/18 Jimbo Swanson, LEATHER CARTRIDGE BELT MAKER.SALES INCENTIVE ANALYST [address] [place] [address] Angle Shear Operator Internal Medicine 01/28/24 Twyla Cuevas APRN.SUSTAINABILITY CONSULTANT [address] [place] [address] Angle Shear Operator Internal Medicine 01/28/24 Body Care Manager Relationship Specialty Start Date End Date Claudine Durán MD [address] [place] [address] PCP - General Internal Medicine 03/02/16 Will Hurley [address] [place] [address] Referring Rheumatology 04/09/18 Jimbo Swanson, LEATHER CARTRIDGE BELT MAKER.SALES INCENTIVE ANALYST [address] [place] [address] Angle Shear Operator Internal Medicine 01/28/24 Twyla Cuevas APRN.SUSTAINABILITY CONSULTANT [address] [place] [address] Angle Shear Operator Internal Medicine 01/28/24 Body Care Manager Relationship Specialty Start Date End Date Claudine Durán MD [address] [place] [address] PCP - General Internal Medicine 03/02/16 Will Hurley [address] [place] [address] Referring Rheumatology 04/09/18 Jimbo Swanson, CONNIE.SALES INCENTIVE ANALYST [address] [place] [address] Angle Shear Operator Internal Medicine 01/28/24 Twyla Cuevas APRN.SUSTAINABILITY CONSULTANT [address] [place] [address] Angle Shear Operator Internal Medicine 01/28/24 Body Care Manager Relationship Specialty Start Date End Date Claudine Durán MD [address] [place] [address] PCP - General Internal Medicine 03/02/16 Will Hurley [address] [place] [address] Referring Rheumatology 04/09/18 Jimbo Swanson, LEATHER CARTRIDGE BELT MAKER.SALES INCENTIVE ANALYST [address] [place] [address] Angle Shear Operator Internal Medicine 01/28/24 Twyla Cuevas LEATHER CARTRIDGE BELT MAKER.SUSTAINABILITY CONSULTANT [address] [place] [address] Angle Shear Operator Internal Medicine 01/28/24 Body Care Manager Relationship Specialty Start Date End Date Claudine Durán MD [address] [place] [address] PCP - General Internal Medicine 03/02/16 Will Hurley [address] [facility] [place], [place] [address] Referring Rheumatology 04/09/18 Jimbo Swanson, LEATHER CARTRIDGE BELT MAKER.SALES INCENTIVE ANALYST [address] [place] [address] Angle Shear Operator Internal Medicine 01/28/24 Twyla Cuevas LEATHER CARTRIDGE BELT MAKER.SUSTAINABILITY CONSULTANT [address] [place] [address] [facility] Internal Medicine 01/28/24 Body Care Manager Relationship Specialty Start Date End Date Claudine Durán MD [address] [place] [address] PCP - General Internal Medicine 03/02/16 Will Hurley [address] [facility] [place] [address] Referring Rheumatology 04/09/18 Jimbo Swanson, LEATHER CARTRIDGE BELT MAKER.SALES INCENTIVE ANALYST [address] [place] [address] Angle Shear Operator Internal Medicine 01/28/24 Twyla Cuevas LEATHER CARTRIDGE BELT MAKER.SUSTAINABILITY CONSULTANT [address] [place] [address] [facility] Internal Medicine 01/28/24 Body Care Manager Relationship Specialty Start Date End Date Claudine Durán MD [address] [place] [address] PCP - General Internal Medicine 03/02/16 Will Hurley [address] [place] [facility] [address] Referring Rheumatology 04/09/18 Jimbo Swanson, CONNIE.SALES INCENTIVE ANALYST [address] [place] [address] Angle Shear Operator Internal Medicine 01/28/24 Twyla Cuevas APRN.SUSTAINABILITY CONSULTANT [address] [place] [address] Angle Shear Operator Internal Medicine 01/28/24 Body Care Manager Relationship Specialty Start Date End Date Claudine Durán MD [address] [place] [address] PCP - General Internal Medicine 03/02/16 Will Hurley [address] [place] [address] Referring Rheumatology 04/09/18 Jimbo Swanson, CONNIE.SALES INCENTIVE ANALYST [address] [place] [address] Angle Shear Operator Internal Medicine 01/28/24 Twyla Cuevas APRN.SUSTAINABILITY CONSULTANT [address] [place] [address] Angle Shear Operator Internal Medicine 01/28/24 Body Care Manager Relationship Specialty Start Date End Date Claudine Durán MD [address] [place] [address] PCP - General Internal Medicine 03/02/16 Will Hurley [address] [place] [address] Referring Rheumatology 04/09/18 Jimbo Swanson APRN.SALES INCENTIVE ANALYST [address] [place] [address] [facility] Internal Medicine 01/28/24 Twyla Cuevas APRN.SUSTAINABILITY CONSULTANT [address] [place] [address] Angle Shear Operator Internal Medicine 01/28/24 Body Care Manager Relationship Specialty Start Date End Date Claudine Durán MD [address] [place] [address] PCP - General Internal Medicine 03/02/16 Will Hurley [address] [place] [address] Referring Rheumatology 04/09/18 Jimbo Swanson, LEATHER CARTRIDGE BELT MAKER.SALES INCENTIVE ANALYST [address] [place] [address] [facility] 01/28/24 Twyla Cuevas LEATHER CARTRIDGE BELT MAKER.SUSTAINABILITY CONSULTANT [address] [place] [address] [facility] 01/28/24 Body Care Manager Relationship Specialty Start Date End Date Claudine Durán MD [address] [place], [place] 374801 PCP - General Internal Medicine 03/02/16 Will Hurley [address] [facility] [place] [address] Referring Rheumatology 04/09/18 Jimbo Swanson, LEATHER CARTRIDGE BELT MAKER.SALES INCENTIVE ANALYST [address] [place] [address] [facility] 01/28/24 Twyla Cuevas LEATHER CARTRIDGE BELT MAKER.SUSTAINABILITY CONSULTANT [address] [place] [address] [facility] 01/28/24 Body Care Manager Relationship Specialty Start Date End Date Claudine Durán MD [address] [place] [address] PCP - General Internal Medicine 03/02/16 Will Hurley [address] [place], [place] 541453 Referring Rheumatology 04/09/18 Jimbo Swanson, LEATHER CARTRIDGE BELT MAKER.SALES INCENTIVE ANALYST [address] [place] [address] [facility] 01/28/24 Twyla Cuevas LEATHER CARTRIDGE BELT MAKER.SUSTAINABILITY CONSULTANT [address] [place] [address] [facility] 01/28/24 Body Care Manager Relationship Specialty Start Date End Date Claudine Durán MD [address] [place] [address] PCP - General Internal Medicine 03/02/16 Will Hurley [address] [place] [address] Referring Rheumatology 04/09/18 Jimbo Swanson, LEATHER CARTRIDGE BELT MAKER.SALES INCENTIVE ANALYST [address] [place] [address] [facility] Internal Medicine 01/28/24 Twyla Cuevas APRN.SUSTAINABILITY CONSULTANT [address] [place] [address] [facility] Internal Medicine 01/28/24 Body Care Manager Relationship Specialty Start Date End Date Claudine Durán MD [facility] [place] [address] PCP - General Internal Medicine 03/02/16 Will Hurley [address] [place] [address] Referring Rheumatology 04/09/18 Jimbo Swanson APRN.SALES INCENTIVE ANALYST [address] [place] [address] [facility] Internal Medicine 01/28/24 Twyla Cuevas APRN.SUSTAINABILITY CONSULTANT [address] [place] [address] [facility] Operator Internal Medicine 01/28/24 Bartolome Francis MD [address] [place] [address] Surgeon Cardiac Surg 04/02/24 Juvencio Saeed MD [address] [place] [address] Primary Staff Physician Cardiology 04/02/24 Body Care Manager Relationship Specialty Start Date End Date Claudine Durán MD [address] [place], [place] 163821 PCP - General Internal Medicine 03/02/16 Will Hurley [address] [facility] [place] [address] Referring Rheumatology 04/09/18 Jimbo Swanson APRN.SALES INCENTIVE ANALYST [address] [place] [address] [facility] Internal Medicine 01/28/24 Twyla Cuevas APRN.SUSTAINABILITY CONSULTANT [address] [place] [address] [facility] 01/28/24 Bartolome Francis MD [address] [place], [place] [id number] Surgeon Cardiac Surg 04/02/24 Juvencio Saeed MD [address] [place] [address] Primary Staff Physician Cardiology 04/02/24 Body Care Manager Relationship Specialty Start Date End Date Claudine Durán MD [address] [place] [address] PCP - General Internal Medicine 03/02/16 Will Hurley [address] [facility] [place] [place] [address] Referring Rheumatology 04/09/18 Jimbo Swanson APRN.SALES INCENTIVE ANALYST [address] [place] [address] Angle Shear Operator Internal Medicine 01/28/24 Twyla Cuevas APRN.SUSTAINABILITY CONSULTANT [address] [place] [address] Angle Shear Operator Internal Medicine 01/28/24 Bartolome Francis MD [address] [place], [place] 7870995 Surgeon Cardiac Surg 04/02/24 Juvencio Saeed MD [address] [place], [place] 5285295 Primary Staff Physician Cardiology 04/02/24 Body Care Manager Relationship Specialty Start Date End Date Claudine Durán MD [address] [place] [address] PCP - General Internal Medicine 03/02/16 Will Hurley [address] [place] [address] Referring Rheumatology 04/09/18 Jimbo Swanson APRN.SALES INCENTIVE ANALYST [address] [place], [place] 238971 [facility] 01/28/24 Twyla Cuevas APRN.SUSTAINABILITY CONSULTANT [address] [place] [address] Angle Shear Operator Internal Medicine 01/28/24 Bartolome Francis MD [address] [place] [address] Surgeon Cardiac Surg 04/02/24 Juvencio Saeed MD [address] [facility] [place] [id number] Primary Staff Physician Cardiology 04/02/24 Body Care Manager Relationship Specialty Start Date End Date Claudine Durán MD [address] [place], [place] 708231 PCP - General Internal Medicine 03/02/16 Will Hurley [address] [facility] 934263 Referring Rheumatology 04/09/18 Jimbo Swanson, LEATHER CARTRIDGE BELT MAKER.SALES INCENTIVE ANALYST [address] [place] [address] Angle Shear Operator Internal Medicine 01/28/24 Twyla Cuevas APRN.SUSTAINABILITY CONSULTANT [address] [place] [address] Angle Shear Operator Internal Medicine 01/28/24 Bartolome Francis MD [address] [place], [place] 5000595 Surgeon Cardiac Surg 04/02/24 Juvencio Saeed MD [address] [place], [place] 2992395 Primary Staff Physician Cardiology 04/02/24 Pili Benitez, composition siding workerOrder Filler 04/11/24 Body Care Manager Relationship Specialty Start Date End Date Claudine Durán MD [address] [place] [address] PCP - General Internal Medicine 03/02/16 Will Hurley [address] [place] [address] Referring Rheumatology 04/09/18 Jimbo Swanson, LEATHER CARTRIDGE BELT MAKER.SALES INCENTIVE ANALYST [address] [place] [address] Angle Shear Operator Internal Medicine 01/28/24 Twyla Cuevas APRN.SUSTAINABILITY CONSULTANT [address] [place] [address] Angle Shear Operator Internal Medicine 01/28/24 Bartolome Francis MD [address] [place], [place] [id number] Surgeon Cardiac Surg 04/02/24 Juvencio Saeed MD [address] [place], [place] 1989495 Primary Staff Physician Cardiology 04/02/24 Pili Benitez, composition siding workerOrder Filler 04/11/24 Body Care Manager Relationship Specialty Start Date End Date Claudine Durán [place] [address] [place] [address] PCP - General Internal Medicine 03/02/16 Will Hurley [address] [place] [address] Referring Rheumatology 04/09/18 Jimbo Swanson APRN.SALES INCENTIVE ANALYST [address] [place] [address] [facility] 01/28/24 Twyla Cuevas APRN.SUSTAINABILITY CONSULTANT [address] [place] [address] Angle Shear Operator Internal Medicine 01/28/24 Bartolome Francis MD [address] [place] [address] Surgeon Cardiac Surg 04/02/24 Juvencio Saeed MD [address] [place] [address] Primary Staff Physician Cardiology 04/02/24 Pili Benitez, composition siding workerOrder Filler 04/11/24 Body Care Manager Relationship Specialty Start Date End Date Claudine Durán MD [address] [place], [place] 053471 PCP - General Internal Medicine 03/02/16 Will Hurley [address] [place], [place] 199933 Referring Rheumatology 04/09/18 Jimbo Swanson APRN.SALES INCENTIVE ANALYST [address] [place], [place] 290211 Angle Shear Operator Internal Medicine 01/28/24 Twyla Cuevas APRN.SUSTAINABILITY CONSULTANT [address] [place], [place] 596541 Angle Shear Operator Internal Medicine 01/28/24 Bartolome Francis MD [address] [place] [address] Surgeon Cardiac Surg 04/02/24 Juvencio Saeed MD [address] [place], [place] 0653595 Primary Staff Physician Cardiology 04/02/24 Pili Benitez, composition siding workerOrder Filler 04/11/24 Body Care Manager Relationship Specialty Start Date End Date Claudine Durán MD [address] [place], [place] 157541 PCP - General Internal Medicine 03/02/16 Will Hurley [address] [facility] [place] [place] [address] Referring Rheumatology 04/09/18 Jimbo Swanson APRN.SALES INCENTIVE ANALYST [address] [place] [address] Angle Shear Operator Internal Medicine 01/28/24 Twyla Cuevas APRN.SUSTAINABILITY CONSULTANT [address] [place] [address] Angle Shear Operator Internal Medicine 01/28/24 Bartolome Francis MD [address] [place], [place] 5901995 Surgeon Cardiac Surg 04/02/24 Juvencio Saeed MD [address] [place], [place] 1734395 Primary Staff Physician Cardiology 04/02/24 Pili Benitez, composition siding workerOrder Filler 04/11/24 Body Care Manager Relationship Specialty Start Date End Date Claudine Durán MD [address] [place] [address] PCP - General Internal Medicine 03/02/16 Will Hurley [address] [facility] [place] [place] [address] Referring Rheumatology 04/09/18 Jimbo Swanson APRN.SALES INCENTIVE ANALYST [address] [facility] [place] [address] Angle Shear Operator Internal Medicine 01/28/24 Twyla Cuevas APRN.SUSTAINABILITY CONSULTANT [address] [place] [address] Angle Shear Operator Internal Medicine 01/28/24 Bartolome Francis MD [address] [place] [address] Surgeon Cardiac Surg 04/02/24 Juvencio Saeed MD [address] [place], [place] 5419095 Primary Staff Physician Cardiology 04/02/24 Piil Benitez, composition siding workerOrder Filler 04/11/24 Body Care Manager Relationship Specialty Start Date End Date Claudine Durán MD [address] [place] [address] PCP - General Internal Medicine 03/02/16 Will Hurley [address] [place] [address] Referring Rheumatology 04/09/18 Jimbo Swanson APRN.SALES INCENTIVE ANALYST [address] [place] [address] Angle Shear Operator Internal Medicine 01/28/24 Twyla Cuevas APRN.SUSTAINABILITY CONSULTANT [address] [place] [address] Angle Shear Operator Internal Medicine 01/28/24 Bartolome Francis MD [address] [place], [place] 3996795 Surgeon Cardiac Surg 04/02/24 Juvencio Saeed MD [address] [facility] [place] [place] [address] Primary Staff Physician Cardiology 04/02/24 Pili Benitez, composition siding workerOrder Filler 04/11/24 Body Care Manager Relationship Specialty Start Date End Date Claudine Durán MD [address] [place], [place] 932431 PCP - General Internal Medicine 03/02/16 Will Hurley [address] [place] [address] Referring Rheumatology 04/09/18 Jimbo Swanson APRN.SALES INCENTIVE ANALYST [address] [place], [place] 101711 Angle Shear Operator Internal Medicine 01/28/24 Twyla Cuevas APRN.SUSTAINABILITY CONSULTANT [address] [place] [address] Angle Shear Operator Internal Medicine 01/28/24 Bartolome Francis MD [address] [place] [address] Surgeon Cardiac Surg 04/02/24 Juvencio Saeed MD [address] [place], [place] 9246595 Primary Staff Physician Cardiology 04/02/24 Pili Benitez, composition siding workerOrder Filler 04/11/24 Body Care Manager Relationship Specialty Start Date End Date Claudine Durán MD [address] [place], [place] 514301 PCP - General Internal Medicine 03/02/16 Will Hurley [address] [facility] [address] Referring Rheumatology 04/09/18 Jimbo Swanson, LEATHER CARTRIDGE BELT MAKER.SALES INCENTIVE ANALYST [address] [place] [address] [facility] 01/28/24 Twyla Cuevas, LEATHER CARTRIDGE BELT MAKER.SUSTAINABILITY CONSULTANT [address] [place] [address] [facility] 01/28/24 Bartolome Francis MD [address] [place], [place] 3858395 Surgeon Cardiac Surg 04/02/24 Juvencio Saeed MD [address] [place], [place] 8643595 Primary Staff Physician Cardiology 04/02/24 Pili Benitez, composition siding workerOrder Filler 04/11/24 Body Care Manager Relationship Specialty Start Date End Date Claudine Durán MD [address] [place] [address] PCP - General Internal Medicine 03/02/16 Will Hurley [address] [place] [address] Referring Rheumatology 04/09/18 Jimbo Swanson, LEATHER CARTRIDGE BELT MAKER.SALES INCENTIVE ANALYST [address] [place] [address] [facility] 01/28/24 Twyla Cuevas LEATHER CARTRIDGE BELT MAKER.SUSTAINABILITY CONSULTANT [address] [place] [address] [facility] 01/28/24 Bartolome Francis MD [address] [place] [address] Surgeon Cardiac Surg 04/02/24 Juvencio Saeed MD [address] [place] [address] Primary Staff Physician Cardiology 04/02/24 Pili Benitez, composition siding workerOrder Filler 04/11/24 Pili Benitez, composition siding worker Sewer Cleaner 05/05/24 Body Care Manager Relationship Specialty Start Date End Date Claudine Durán MD [address] [place], [place] 920321 PCP - General Internal Medicine 03/02/16 Will Hurley [address] [place], [place] 878433 Referring Rheumatology 04/09/18 Jimbo Swanson, CONNIE.SALES INCENTIVE ANALYST [address] [place], [place] 132981 Angle Shear Operator Internal Medicine 01/28/24 Twyla Cuevas APRN.SUSTAINABILITY CONSULTANT [address] [place] [address] Angle Shear Operator Internal Medicine 01/28/24 Bartolome Francis MD [address] [facility] [place] [place] [address] Surgeon Cardiac Surg 04/02/24 Juvencio Saeed MD [address] [place], [place] 9702295 Primary Staff Physician Cardiology 04/02/24 Pili Benitez, composition siding workerOrder Filler 04/11/24 Pili Benitez, composition siding worker Sewer Cleaner 05/05/24 Body Care Manager Relationship Specialty Start Date End Date Claudine Durán MD [address] [place], [place] 298761 PCP - General Internal Medicine 03/02/16 Will Hurley [address] [place], [place] 031053 Referring Rheumatology 04/09/18 Jimbo Swanson APRN.SALES INCENTIVE ANALYST [address] [place], [place] 294141 Angle Shear Operator Internal Medicine 01/28/24 Twyla Cuevas APRN.SUSTAINABILITY CONSULTANT [address] [place] [address] Angle Shear Operator Internal Medicine 01/28/24 Bartolome Francis MD [address] [place], [place] 6983295 Surgeon Cardiac Surg 04/02/24 Juvencio Saeed MD [address] [place], [place] [id number] Primary Staff Physician Cardiology 04/02/24 Pili Benitez, composition siding workerOrder Filler 04/11/24 Body Care Manager Relationship Specialty Start Date End Date Claudine Durán MD [address] [place], [place] 749851 PCP - General Internal Medicine 03/02/16 Will Hurley [address] [facility] [address] Referring Rheumatology 04/09/18 Jimbo Swanson, LEATHER CARTRIDGE BELT MAKER.SALES INCENTIVE ANALYST [address] [facility] 832281 Angle Shear Operator Internal Medicine 01/28/24 Twyla Cuevas LEATHER CARTRIDGE BELT MAKER.SUSTAINABILITY CONSULTANT [address] [facility] 793181 Angle Shear Operator Internal Medicine 01/28/24 05/09/24 Bartolome Francis MD [address] [facility] [place], [place] 4718495 Surgeon Cardiac Surg 04/02/24 Juvencio Saeed MD [address] [place], [place] 2079195 Primary Staff Physician Cardiology 04/02/24 Pili Benitez, composition siding workerOrder Filler 04/11/24 Pili Benitez, composition siding worker Sewer Cleaner 05/05/24 Body Care Manager Relationship Specialty Start Date End Date Claudine Durán MD [address] [facility] 383831 PCP - General Internal Medicine 03/02/16 Will Hurley [address] [facility] [place] 335513 Referring Rheumatology 04/09/18 Jimbo Swanson, LEATHER CARTRIDGE BELT MAKER.SALES INCENTIVE ANALYST [address] [facility] 068241 [facility] 01/28/24 Bartolome Francis MD [address] [facility] [place], [place] 1078095 Surgeon Cardiac Surg 04/02/24 Juvencio Saeed MD [address] [place] [address] Primary Staff Physician Cardiology 04/02/24 Pili Benitez, composition siding workerOrder Filler 04/11/24 Pili Benitez, composition siding worker Sewer Cleaner 05/05/24 Body Care Manager Relationship Specialty Start Date End Date Claudine Durán MD [address] [place] [address] PCP - General Internal Medicine 03/02/16 Will Hurley [address] [place] [address] Referring Rheumatology 04/09/18 Jimbo Swanson APRN.SALES INCENTIVE ANALYST [address] [place] [address] Angle Shear Operator Internal Medicine 01/28/24 Bartolome Francis MD [address] [facility] [place] [place] [address] Surgeon Cardiac Surg 04/02/24 Juvencio Saeed MD [address] [facility] [place] [place] [address] Primary Staff Physician Cardiology 04/02/24 Pili Benitez, composition siding workerOrder Filler 04/11/24 Pili Benitez, composition siding worker Sewer Cleaner 05/05/24 Twyla Cuevas LEATHER CARTRIDGE BELT MAKER.SUSTAINABILITY CONSULTANT [address] [place] [address] Angle Shear Operator Internal Medicine 05/13/24 Body Care Manager Relationship Specialty Start Date End Date Claudine Durán MD [address] [place], [place] 241011 PCP - General Internal Medicine 03/02/16 Will Hurley [address] [facility] [place] [place] [address] Referring Rheumatology 04/09/18 Jimbo Swanson, LEATHER CARTRIDGE BELT MAKER.SALES INCENTIVE ANALYST [address] [place] [address] Angle Shear Operator Internal Medicine 01/28/24 Bartolome Francis MD [address] [place], [place] 8202195 Surgeon Cardiac Surg 04/02/24 Juvencio Saeed MD [address] [place], [place] 5618495 Primary Staff Physician Cardiology 04/02/24 Pili Benitez, composition siding workerOrder Filler 04/11/24 Pili Benitez, composition siding worker Sewer Cleaner 05/05/24 Twyla Cuevas APRN.SUSTAINABILITY CONSULTANT [address] [place], [place] 886781 Angle Shear Operator Internal Medicine 05/13/24 Body Care Manager Relationship Specialty Start Date End Date Claudine Durán MD [address] [facility] [place] [place] 0[address]121 PCP - General Internal Medicine 03/02/16 Will Hurley [address] [facility] [place] [place] [address] Referring Rheumatology 04/09/18 Jimbo Swanson, LEATHER CARTRIDGE BELT MAKER.SALES INCENTIVE ANALYST [address] [place] [address] Angle Shear Operator Internal Medicine 01/28/24 Bartolome Francis MD [address] [place] [address] Surgeon Cardiac Surg 04/02/24 Juvencio Saeed MD [address] [place] [address] Primary Staff Physician Cardiology 04/02/24 Pili Benitez, composition siding workerOrder Filler 04/11/24 Pili Benitez, composition siding worker Sewer Cleaner 05/05/24 Twyla Cuevas, LEATHER CARTRIDGE BELT MAKER.SUSTAINABILITY CONSULTANT [address] [place] [address] Angle Shear Operator Internal Medicine 05/13/24 Body Care Manager Relationship Specialty Start Date End Date Claudine Durán MD [address] [place] [address] PCP - General Internal Medicine 03/02/16 Will Hurley [address] [place], [place] 637273 Referring Rheumatology 04/09/18 Jimbo Swanson, CONNIE.SALES INCENTIVE ANALYST [address] [place] [address] Angle Shear Operator Internal Medicine 01/28/24 Bartolome Francis MD [address] [place] [address] Surgeon Cardiac Surg 04/02/24 Juvencio Saeed MD [address] [place] [address] Primary Staff Physician Cardiology 04/02/24 Pili Benitez, composition siding workerOrder Filler 04/11/24 Pili Benitez, composition siding worker Sewer Cleaner 05/05/24 Twyla Cuevas, LEATHER CARTRIDGE BELT MAKER.SUSTAINABILITY CONSULTANT [address] [place], [place] 251241 Angle Shear Operator Internal Medicine 05/13/24 Team Status: Active Member Role Status Dates Dr. Claudine Durán MD Primary Care Provider Active Team Status: Inactive Member Role Status Dates Dr. Claudine Durán MD Primary Care Provider Active Start: May 28, 2024 End: May 28, 2024 CHRISTOPHE LOWRY Attending Provider Active Start: Ap ril 2024 End: May 28, 2024 CHRISTOPHE LOWRY Referring Provider Active Start: Ap ril 2024 End: May 28, 2024 Team Status: Active Member Role Status Dates Dr. Claudine Durán MD Primary Care Provider Active Start: 2024 CHRISTOPHE LOWRY Attending Provider Active Start: Ap ril 2024 CHRISTOPHE LOWRY Referring Provider Active Start: Ap ril 2024 Body Care Manager Relationship Specialty Start Date End Date Claudine Durán MD [address] [place] [address] PCP - General Internal Medicine 03/02/16 Will Hurley [address] [place] [address] Referring Rheumatology 04/09/18 Jimbo Swanson, LEATHER CARTRIDGE BELT MAKER.SALES INCENTIVE ANALYST [address] [place], [place] 964661 Angle Shear Operator Internal Medicine 01/28/24 Bartolome Francis MD [address] [place], [place] 5966695 Surgeon Cardiac Surg 04/02/24 Juvencio Saeed MD [address] [place] [address] Primary Staff Physician Cardiology 04/02/24 Pili Benitez, composition siding workerOrder Filler 04/11/24 Twyla Cuevas LEATHER CARTRIDGE BELT MAKER.SUSTAINABILITY CONSULTANT [address] [place], [place] 516741 Angle Shear Operator Internal Medicine 05/13/24 Body Care Manager Relationship Specialty Start Date End Date Claudine Durán MD [address] [place] [address] PCP - General Internal Medicine 03/02/16 Will Hurley [address] [place], [place] 762743 Referring Rheumatology 04/09/18 Jimbo Swanson APRN.SALES INCENTIVE ANALYST [address] [place], [place] 773081 Angle Shear Operator Internal Medicine 01/28/24 Bartolome Francis MD [address] [place] [address] Surgeon Cardiac Surg 04/02/24 Juvencio Saeed MD [address] [place] [address] Primary Staff Physician Cardiology 04/02/24 Pili Benitez, composition siding workerOrder Filler 04/11/24 Twyla Cuevas, LEATHER CARTRIDGE BELT MAKER.SUSTAINABILITY CONSULTANT [address] [place], [place] 594831 Angle Shear Operator Internal Medicine 05/13/24 Body Care Manager Relationship Specialty Start Date End Date Claudine Durán MD [address] [place], [place] 683691 PCP - General Internal Medicine 03/02/16 Will Hurley [address] [facility] [place] [place] [address] Referring Rheumatology 04/09/18 Jimbo Swanson, LEATHER CARTRIDGE BELT MAKER.SALES INCENTIVE ANALYST [address] [place] [address] [facility] 01/28/24 Bartolome Francis MD [address] [place], [place] 2440195 Surgeon Cardiac Surg 04/02/24 Juvencio Saeed MD [address] [place], [place] 2471695 Primary Staff Physician Cardiology 04/02/24 Pili Benitez, composition siding workerOrder Filler 04/11/24 Twyla Cuevas, LEATHER CARTRIDGE BELT MAKER.SUSTAINABILITY CONSULTANT [address] [place] [address] [facility] 05/13/24 Body Care Manager Relationship Specialty Start Date End Date Claudine Durán MD [address] [place], [place] 713061 PCP - General Internal Medicine 03/02/16 Will Hurley [address] [facility] [place] [place] [address] Referring Rheumatology 04/09/18 Jimbo Swanson, LEATHER CARTRIDGE BELT MAKER.SALES INCENTIVE ANALYST [address] [place] [address] Angle Shear Operator Internal Medicine 01/28/24 Bartolome Francis MD [address] [place], [place] 5048795 Surgeon Cardiac Surg 04/02/24 Juvencio Saeed MD [address] [place], [place] 9329695 Primary Staff Physician Cardiology 04/02/24 Pili Benitez, composition siding workerOrder Filler 04/11/24 Twyla Cuevas, LEATHER CARTRIDGE BELT MAKER.SUSTAINABILITY CONSULTANT [address] [place] [address] [facility] 05/13/24 Body Care Manager Relationship Specialty Start Date End Date Claudine Durán MD [address] [place] [address] PCP - General Internal Medicine 03/02/16 Will Hurley [address] [place] [address] Referring Rheumatology 04/09/18 Jimbo Swanson, LEATHER CARTRIDGE BELT MAKER.SALES INCENTIVE ANALYST [address] [place] [address] Angle Shear Operator Internal Medicine 01/28/24 Bartolome Francis MD [address] [place] [address] Surgeon Cardiac Surg 04/02/24 Juvencio Saeed MD [address] [place] [address] Primary Staff Physician Cardiology 04/02/24 Pili Benitez, composition siding workerOrder Filler 04/11/24 Twyla Cuevas APRN.SUSTAINABILITY CONSULTANT [address] [place] [address] Angle Shear Operator Internal Medicine 05/13/24 Team Status: Inactive Member Role Status Dates Dr. Claudine Durán MD Primary Care Provider Active Start: June 18, 2024 End: June 18, 2024 CHRISTOPHE LOWRY Attending Provider Active Start: Ap [facility] 2024 End: June 18, 2024 CHRISTOPHE LOWRY [...] 2024 CHRISTOPHE LOWRY Attending Provider Active Start: Ma 2024 End: July 19, 2024 CHRISTOPHE LOWRY Referring Provider Active Start: Ma y 2024 End: July 19, 2024 Body Care Manager Relationship Specialty Start Date End Date Claudine Durán MD [address] [place] [address] PCP - General Internal Medicine 03/02/16 Will Hurley [address] [facility] [place] [address] Referring Rheumatology 04/09/18 Bartolome Francis MD [address] [place], [place] 8928795 Surgeon Cardiac Surg 04/02/24 Juvencio Saeed MD [address] [place] [place], [place] 0126695 Primary Staff Physician Cardiology 04/02/24 Twyla Cuevas APRN.SUSTAINABILITY CONSULTANT [address] [place] [address] Angle Shear Operator Internal Medicine 05/13/24 Jimbo Swanson APRN.SALES INCENTIVE ANALYST [address] [place] [address] [facility] 07/09/24 Body Care Manager Relationship Specialty Start Date End Date Claudine Durán MD [address] [place] [address] PCP - General Internal Medicine 03/02/16 Will Hurley [address] [place], [place] 982083 Referring Rheumatology 04/09/18 Bartolome Francis MD [address] [place], [place] [id number] Surgeon Cardiac Surg 04/02/24 Juvencio Saeed MD [address] [place], [place] [id number] Primary Staff Physician Cardiology 04/02/24 Twyla Cuevas APRN.SUSTAINABILITY CONSULTANT [address] [place] [address] Angle Shear Operator Internal Medicine 05/13/24 Jimbo Swanson APRN.SALES INCENTIVE ANALYST [address] [place] [address] Angle Shear Operator Internal Medicine 07/09/24 Body Care Manager Relationship Specialty Start Date End Date Claudine Durán MD [address] [place] [address] PCP - General Internal Medicine 03/02/16 Will Hurley [address] [facility] [place] [address] Referring Rheumatology 04/09/18 Bartolome Francis MD [address] [place], [place] [id number] Surgeon Cardiac Surg 04/02/24 Juvencio Saeed MD [address] [place], [place] [id number] Primary Staff Physician Cardiology 04/02/24 Twyla Cuevas APRN.SUSTAINABILITY CONSULTANT [address] [place] [address] Angle Shear Operator Internal Medicine 05/13/24 Jimbo Swanson APRN.SALES INCENTIVE ANALYST [address] [place] [address] Angle Shear Operator Internal Medicine 07/09/24 Body Care Manager Relationship Specialty Start Date End Date Claudine Durán MD [address] [place], [place] [address]321 PCP - General Internal Medicine 03/02/16 Will Hurley [address] [facility] [place] [address] Referring Rheumatology 04/09/18 Bartolome Francis MD [address] [place], [place] [id number] Surgeon Cardiac Surg 04/02/24 Juvencio Saeed MD [address] [place], [place] [id number] Primary Staff Physician Cardiology 04/02/24 Twyla Cuevas APRN.SUSTAINABILITY CONSULTANT [address] [place] [address] Angle Shear Operator Internal Medicine 05/13/24 Jimbo Swanson APRN.SALES INCENTIVE ANALYST [address] [place] [address] Angle Shear Operator Internal Medicine 07/09/24 Body Care Manager Relationship Specialty Start Date End Date Claudine Durán MD [address] [place] [address] PCP - General Internal Medicine 03/02/16 Will Hurley [address] [place], [place] [address] Referring Rheumatology 04/09/18 Bartolome Francis MD [address] [place] [address] Surgeon Cardiac Surg 04/02/24 Juvencio Saeed MD [address] [place], [place] [id number] Primary Staff Physician Cardiology 04/02/24 Twyla Cuevas LEATHER CARTRIDGE BELT MAKER.SUSTAINABILITY CONSULTANT [address] [place] [address] Angle Shear Operator Internal Medicine 05/13/24 Jimbo Swanson, LEATHER CARTRIDGE BELT MAKER.SALES INCENTIVE ANALYST [address] [facility] [place] [address] Angle Shear Operator Internal Medicine 07/09/24 Team Status: Active Member Role/Relationship Status Dates Dr. Claudine Durán MD Primary Care Provider Active Team Status: Inactive Member Role/Relationship Status Dates Dr. Claudine Durán MD Primary Care Provider Active Start: May 28, 2024 End: May 28, 2024 CHRISTOPHE LOWRY Attending Provider Active Start: Ap ril 2024 End: May 28, 2024 CHRISTOPHE LOWRY Referring Provider Active Start: Ap ril 2024 End: May 28, 2024 Team Status: Inactive Member Role/Relationship Status Dates Dr. Claudine Durán MD Primary Care Provider Active Start: June 18, 2024 End: June 18, 2024 CHRISTOPHE LOWRY Attending Provider Active Start: Ap ril 2024 End: June 18, 2024 CHRISTOPHE LOWRY [...] 2024 CHRISTOPHE LOWRY Attending Provider Active Start: Yaima y 2024 End: July 19, 2024 CHRISTOPHE LOWRY Referring Provider Active Start: Yaima y 2024 End: July 19, 2024 Team Status: Inactive Member Role/Relationship Status Dates Dr. Claudine Durán MD Primary Care Provider Active Start: August 18, 2024 End: August 18, 2024 CHRISTOPHE LOWRY Attending Provider Active Start: Nasrin chapa 2024 End: August 18, 2024 CHRISTOPHE LOWRY Referring Provider Active Start: Nasrin ne 2024 End: August 18, 2024 Body Care Manager Relationship Specialty Start Date End Date Claudine Durán MD [address] [place] [address] PCP - General Internal Medicine 03/02/16 Will Hurley [address] [place] [address] Referring Rheumatology 04/09/18 Bartolome Francis MD [address] [place], [place] [id number] Surgeon Cardiac Surg 04/02/24 Juvencio Saeed MD [address] [place] [address] Primary Staff Physician Cardiology 04/02/24 Twyla Cuevas APRN.SUSTAINABILITY CONSULTANT [address] [place], [place] [address] Angle Shear Operator Internal Medicine 05/13/24 Jimbo Swanson APRN.SALES INCENTIVE ANALYST [address] [place], [place] [id number] Angle Shear Operator Internal Medicine 07/09/24 Team Status: Active Member Role/Relationship Status Dates Dr. Claudine Durán MD Primary Care Provider Active Start: August 20, 2024 CHRISTOPHE LOWRY Attending Provider Active Start: Nasrin nascimento 2024 CHRISTOPHE LOWRY Referring Provider Active Start: Nasrin ly 2024 Team Status: Active Member Role/Relationship Status Dates Dr. Claudine Durán MD Primary Care Provider Active Start: August 23, 2024 Dr. Ron Mariscal MD Emergency Provider Active Start: August 23, 2024 Dr. Erasmo House MD Admit Provider Active Sta rt: August 23, 2024 Dr. Erasmo House MD Attending Provider Active Start: August 23, 2024 Dr. Burak Amanda MD Other Provider Active Sta rt: August 23, 2024 Team Status: Inactive Member Role/Relationship Status Dates Dr. Claudine Durán MD Primary Care Provider Active Start: August 23, 2024 End: August 27, 2024 Dr. Ron Mariscal MD Emergency Provider Active Start: August 23, 2024 End: August 27, 2024 Dr. Erasmo House MD Admit Provider Active Sta rt: August 23, 2024 End: August 27, 2024 Dr. Erasmo House MD Other Provider Active Sta rt: August 23, 2024 End: August 27, 2024 Dr. Burak Amanda MD Other Provider Active Sta rt: August 23, 2024 End: August 27, 2024 Dr. Jasmyn Chan DO Attending Provider Active Start: August 23, 2024 End: August 27, 2024 Team Status: Active Member Role/Relationship Status Dates Dr. Claudine Durán MD Primary Care Provider Active Start: August 24, 2024 Dr. Ron Mariscal MD Emergency Provider Active Start: August 24, 2024 Dr. Erasmo House MD Admit Provider Active Sta rt: August 24, 2024 Dr. Erasmo House MD Attending Provider Active Start: August 24, 2024 Dr. Erasmo House MD Other Provider Active Sta rt: August 24, 2024 Dr. Burak Amanda MD Other Provider Active Sta rt: August 24, 2024 Team Status: Active Member Role/Relationship Status Dates Dr. Claudine Durán MD Primary Care Provider Active Start: August 25, 2024 Dr. Ron Mariscal MD Emergency Provider Active Start: August 25, 2024 Dr. Erasmo House MD Admit Provider Active Sta rt: August 25, 2024 Dr. Erasmo House MD Other Provider Active Sta rt: August 25, 2024 Dr. Burak Amanda MD Other Provider Active Sta rt: August 25, 2024 Dr. Jasmyn Chan DO Attending Provider Active Start: August 25, 2024 Dr. Jasmyn Chan DO Other Provider Active S tart: August 25, 2024 Team Status: Active Member Role/Relationship Status Dates Dr. Claudine Durán MD Primary Care Provider Active Start: August 26, 2024 Dr. Ron Mariscal MD Emergency Provider Active Start: August 26, 2024 Dr. Erasmo House MD Admit Provider Active Sta rt: August 26, 2024 Dr. Erasmo House MD Other Provider Active Sta rt: August 26, 2024 Dr. Burak Amanda MD Other Provider Active Sta rt: August 26, 2024 Dr. Jasmyn Chan DO Attending Provider Active Start: August 26, 2024 Dr. Jasmyn Chan DO Other Provider Active S tart: August 26, 2024 Team Status: Active Member Role/Relationship Status Dates Dr. Claudine Durán MD Primary Care Provider Active Start: August 27, 2024 Dr. Ron Mariscal MD Emergency Provider Active Start: August 27, 2024 Dr. Erasmo House MD Admit Provider Active Sta rt: August 27, 2024 Dr. Erasmo House MD Other Provider Active Sta rt: August 27, 2024 Dr. Burak Amanda MD Other Provider Active Sta rt: August 27, 2024 Dr. Jasmyn Chan DO Attending Provider Active Start: August 27, 2024 Dr. Jasmyn Chan DO Other Provider Active S tart: August 27, 2024 Team Status: Inactive Member Role/Relationship Status Dates Dr. Claudine Durán MD Primary Care Provider Active Start: August 20, 2024 End: September 18, 2024 CHRISTOPHE LOWRY Attending Provider Active Start: Nasrin nascimento 2024 End: September 18, 2024 CHRISTOPHE LOWRY Referring Provider Active Start: Nasrin nascimento 2024 End: September 18, 2024 Team Status: Active Member Role/Relationship Status Dates Dr. Claudine Durán MD Primary Care Provider Active Start: August 28, 2024 Zaynab NOLEN MD Attending Provider Active Start: August 28, 2024 Team Status: Active Member Role/Relationship Status Dates Dr. Claudine Durán MD Primary Care Provider Active Start: September 01, 2024 Zaynab NOLEN MD Attending Provider Active Start: September 01, 2024 Team Status: Active Member Role/Relationship Status Dates Dr. Claudine Durán MD Primary Care Provider Active Start: September 04, 2024 Zaynab NOLEN MD Attending Provider Active Start: September 04, 2024 Team Status: Active Member Role/Relationship Status Dates Dr. Claudine Durán MD Primary Care Provider Active Start: September 08, 2024 Zaynab NOLEN MD Attending Provider Active Start: September 08, 2024 Team Status: Active Member Role/Relationship Status Dates Dr. Claudine Durán MD Primary Care Provider Active Start: September 11, 2024 Zaynab NOLEN MD Attending Provider Active Start: September 11, 2024 Team Status: Active Member Role/Relationship Status Dates Dr. Claudine Durán MD Primary Care Provider Active Start: September 15, 2024 Zaynab NOLEN MD Attending Provider Active Start: September 15, 2024 Team Status: Active Member Role/Relationship Status Dates Dr. Claudine Durán MD Primary Care Provider Active Start: September 18, 2024 Zaynab NOLEN MD Attending Provider Active Start: September 18, 2024 Goals (unrecognized section and content) Goals may [...] BE BASED ON THE PRIMARY CLINICAL RECORDS. [employer] provides no warranty or guarantee of the accuracy or completeness of information in this document.
[2024-10-02 09:06] LABS: Hematocrit 32.9 % (37-47); Hemoglobin 11.2 g/dL (12.0-15.0); Immature Granulocytes Count 0.040 X10^3/uL (0.0-0.0); Mean Corp Hgb Conc 34.0 g/dL (32-36); Mean Corpuscular Volume 95.1 fL (81-99); Mean Platelet Vol. 10.9 fl (6.2-12.0); NRBC Flagged by Analyzer 0 % (0-5); Platelet Count 160 K/mm3 (150-450); RBC Distribution Width CV 13.8 % (11.6-14.6); RBC Distribution Width SD 48.2 fl (35.1-43.9); Red Blood Count 3.46 M/mm3 (4.2-5.4); White Blood Count 5.6 K/mm3 (4.4-11.0)
[2024-10-02 10:00] LABS: Anion Gap 12 (5-15); BUN 12 mg/dL (4-19); BUN/Creat Ratio 20.9 RATIO (10-20); Calcium,Total 9.0 mg/dL (7.6-11.0); Carbon Dioxide 21.1 mmol/L (21.0-32.0); Chloride 95 mmol/L (98-108); Glucose 80 mg/dL (70-99); Potassium 3.9 mmol/L (3.3-5.1)
[2024-10-02 10:36] LABS: Prothrombin Time (Protime)PT. 20.9 SECONDS (11.7-14.9)
== END ==
LOC: OLS.WHLTCC 05:00
PROVIDERS: PCP Internal Medicine; Visit Provider Internal Medicine
DX: I10 Essential (primary) hypertension (principal); I35.0 Nonrheumatic aortic (valve) stenosis
CPT/HCPCS: 36415; 80048; 85025; 85610

== ENCOUNTER → 2024-10-06 05:00 | Outpatient (REF) | payer MEDICARE, SELFPAY ==
[2024-10-06 08:09] LABS: INR Fingerstick 1.6
== END ==
LOC: OLS.WHLTCC 05:00
PROVIDERS: PCP Internal Medicine; Visit Provider Internal Medicine
DX: I35.0 Nonrheumatic aortic (valve) stenosis (principal)
CPT/HCPCS: 36416; 85610

== ENCOUNTER → 2024-10-07 04:00 | Outpatient (REF) | payer MEDICARE, SELFPAY | LOC: OLS.WHLTCC 04:00 | PROVIDERS: PCP Internal Medicine; Referring Provider Internal Medicine; Visit Provider Internal Medicine | DX: S52.502D Unspecified fracture of the lower end of left radius, subsequent encounter for closed fracture with routine healing (principal); S06.0X0D Concussion without loss of consciousness, subsequent encounter; E87.1 Hypo-osmolality and hyponatremia; R54 Age-related physical debility | CPT/HCPCS: 36415; 84295 ==

== ENCOUNTER → 2024-10-09 05:00 | Outpatient (REF) | payer MEDICARE, SELFPAY ==
[2024-10-09 08:32] LABS: Hematocrit 33.1 % (37-47); Hemoglobin 11.2 g/dL (12.0-15.0); Immature Granulocytes Count 0.040 X10^3/uL (0.0-0.0); Mean Corp Hgb Conc 33.8 g/dL (32-36); Mean Corpuscular Volume 95.9 fL (81-99); Mean Platelet Vol. 10.6 fl (6.2-12.0); NRBC Flagged by Analyzer 0 % (0-5); Platelet Count 186 K/mm3 (150-450); RBC Distribution Width CV 14.0 % (11.6-14.6); RBC Distribution Width SD 49.2 fl (35.1-43.9); Red Blood Count 3.45 M/mm3 (4.2-5.4); White Blood Count 6.5 K/mm3 (4.4-11.0)
[2024-10-09 08:42] LABS: Prothrombin Time (Protime)PT. 21.3 SECONDS (11.7-14.9)
[2024-10-09 08:44] LABS: Anion Gap 13 (5-15); BUN 14 mg/dL (4-19); BUN/Creat Ratio 23.1 RATIO (10-20); Calcium,Total 8.8 mg/dL (7.6-11.0); Carbon Dioxide 21.3 mmol/L (21.0-32.0); Chloride 101 mmol/L (98-108); Glucose 68 mg/dL (70-99); Potassium 3.9 mmol/L (3.3-5.1)
== END ==
LOC: OLS.WHLTCC 05:00
PROVIDERS: PCP Internal Medicine; Visit Provider Internal Medicine
DX: I10 Essential (primary) hypertension (principal); I35.0 Nonrheumatic aortic (valve) stenosis
CPT/HCPCS: 36415; 80048; 85025; 85610

== ENCOUNTER → 2024-10-13 05:00 | Outpatient (REF) | payer MEDICARE, SELFPAY ==
[2024-10-13 07:58] LABS: INR Fingerstick 2.0
== END ==
LOC: OLS.WHLTCC 05:00
PROVIDERS: PCP Internal Medicine; Visit Provider Internal Medicine
DX: S52.502D Unspecified fracture of the lower end of left radius, subsequent encounter for closed fracture with routine healing (principal); S06.0X0D Concussion without loss of consciousness, subsequent encounter; I35.0 Nonrheumatic aortic (valve) stenosis; R54 Age-related physical debility
CPT/HCPCS: 36416; 85610

== ENCOUNTER → 2024-10-16 05:00 | Outpatient (REF) | payer MEDICARE, SELFPAY ==
[2024-10-16 09:15] LABS: Hematocrit 35.7 % (37-47); Hemoglobin 12.0 g/dL (12.0-15.0); Immature Granulocytes Count 0.050 X10^3/uL (0.0-0.0); Mean Corp Hgb Conc 33.6 g/dL (32-36); Mean Corpuscular Volume 96.0 fL (81-99); Mean Platelet Vol. 10.6 fl (6.2-12.0); NRBC Flagged by Analyzer 0 % (0-5); Platelet Count 196 K/mm3 (150-450); RBC Distribution Width CV 14.6 % (11.6-14.6); RBC Distribution Width SD 50.8 fl (35.1-43.9); Red Blood Count 3.72 M/mm3 (4.2-5.4); White Blood Count 6.0 K/mm3 (4.4-11.0)
[2024-10-16 09:30] LABS: Prothrombin Time (Protime)PT. 17.6 SECONDS (11.7-14.9)
[2024-10-16 09:32] LABS: Anion Gap 11 (5-15); BUN 14 mg/dL (4-19); BUN/Creat Ratio 23.5 RATIO (10-20); Calcium,Total 8.8 mg/dL (7.6-11.0); Carbon Dioxide 21.1 mmol/L (21.0-32.0); Chloride 98 mmol/L (98-108); Glucose 83 mg/dL (70-99); Potassium 4.2 mmol/L (3.3-5.1)
== END ==
LOC: OLS.WHLTCC 05:00
PROVIDERS: PCP Internal Medicine; Visit Provider Internal Medicine
DX: S52.502D Unspecified fracture of the lower end of left radius, subsequent encounter for closed fracture with routine healing (principal); S06.0X0D Concussion without loss of consciousness, subsequent encounter; R54 Age-related physical debility; I10 Essential (primary) hypertension; I35.0 Nonrheumatic aortic (valve) stenosis
CPT/HCPCS: 36415; 80048; 85025; 85610

== ENCOUNTER 2024-10-19 00:40 | Emergency (ER) | payer MEDICARE, SELFPAY ==
[2024-10-19 00:42] VITALS: BP 138/71; PULSE 88; RESP 18; TEMP 36.8; O2SAT 99; BMI 23.1
--- NOTE | 2024-10-19 00:56 | CT_ITS ---
PROCEDURE: SPINE CERVICAL WITHOUT CONTRAS 10/19/2024 REASON FOR EXAM: FALL TECHNIQUE: Procedure Code: CTSPC Modality: CT Procedure: SPINE CERVICAL WITHOUT CONTRAS Coronal and Sagittal reconstruction series were provided. One or more dose reduction techniques were used (e.g., Automated exposure control, adjustment of the mA and/or kV according to patient size, use of iterative reconstruction technique. RADIATION DOSE SUMMARY: CTDI Vol 61.79 mGy DLP :1267.7 mGycm COMPARISON: none FINDINGS: Straightened cervical lordosis denoting myospasm. Mild C4 and C7 anterolithesis. C3 and C4 bony fusion noted. The examined vertebral bodies show no structural collapse or posterior neural elements fractures. Intact atlanto-axial interval. Degenerative changes of the atlanto-odontoid articulation with related capsular calcifications. Cervical spondylodegenerative changes evident by marginal osteophytic lipping and multilevel subchondral sclerosis of the examined vertebral end plates with multilevel disc spaces narrowing with vacuum phenomenon. Multilevel degenerative unco-vertebral arthropathy with osteophytes formation seen encroaching upon the corresponding neural exit foramina. Multilevel degenerative facet arthropathy. Multilevel diffuse disc bulges with posterior osteophytes and annular calcifications indenting the theca and encroaching upon the related neural exit foramina. No paraspinal masses. Carotid atheromatous calcifications. Bilateral upper lung lobes apical reticulations. CT/Spine Cervical without Contras IMPRESSION: Straightened cervical curve denoting myospasm. No acute vertebral fractures, structural collapse or dislocation. 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 Reading [facility]
--- NOTE | 2024-10-19 00:56 | CT_ITS ---
PROCEDURE: BRAIN/HEAD WITHOUT CONTRAST 10/19/2024 REASON FOR EXAM: FALL, ON OAC TECHNIQUE: Procedure Code: CTBR Modality: CT Procedure: BRAIN/HEAD WITHOUT CONTRAST Coronal and Sagittal reconstruction series were provided. One or more dose reduction techniques were used (e.g., Automated exposure control, adjustment of the mA and/or kV according to patient size, use of iterative reconstruction technique. RADIATION DOSE SUMMARY: CTDlvol: 12.88 mGy DLP: 1019 mGycm COMPARISON: 08/23/2024. FINDINGS: Mild diffuse cortical atrophy, commensurate with the patient's age. Scattered hypodense foci in the periventricular and subcortical white matter suggestive of chronic ischemic white matter disease. Normal size of the ventricles and extra-axial spaces for the patient's age. Normal basal ganglia and thalami. Normal brainstem. Normal cerebellum. There is no demonstrated extra-axial, intraparenchymal, or intraventricular hemorrhage. There are no findings of an acute ischemic infarction. Normal calvarium. There is no demonstrated fracture. Normal soft tissue structures. Normal visualized paranasal sinuses. CT/Brain/Head without Contrast IMPRESSION: No CT evidence for acute brain abnormality. Reading Location: [facility]
--- NOTE | 2024-10-19 00:57 | ED.VIS.FALL ---
HPI HPI - Fall History of Present Illness Chief Complaint: Fall Narrative Narrative: Patient is a 79-year-old female presenting to the emergency department after a fall. Patient has past medical history as below including DVT on warfarin. Patient states that she lives at home and was using her walker as she normally does when she bent down to pick out hand a blanket that was on the floor and she lost her balance causing her to fall backwards striking the back of her head. She denies losing consciousness. Denies any neck or back pain. She is currently being treated for shingles on her right flank. States she was able to get up on her own. She then called 911 because she was told if she ever falls and hits her head she is supposed to. She denies any chest pain, shortness of breath, palpitations, lightheadedness or dizziness. Denies any pain in her hips or legs. She reports she does have a wound from the fall to her left elbow. Tetanus vaccine has been given in the last 5 years she reports. [facility] Medical History Declining functional status Closed head injury without concussion Closed fracture of distal end of left radius Hypertension GERD (gastroesophageal reflux disease) Pericardial effusion CHF (congestive heart failure) Wears glasses Walker as ambulation aid Ambulates with cane Arthritis Excessive bleeding Easy bruising History of ulceration History of GI bleed Gastric reflux Emphysema, unspecified Cardiology follow-up encounter History of edema Severe aortic stenosis ABLA (acute blood loss anemia) Thrombocytopenia Adult failure to thrive Leg edema Rheumatoid arthritis COPD (chronic obstructive pulmonary disease) Former smoker DVT (deep venous thrombosis) Pulmonary embolism Colitis COVID-19 Histoplasmosis Home Medications ?Medication ?Instructions ?Recorded ?Last Taken ?Type multivitamin (Daily Multi-Vitamin 1 tab PO DAILY supplement 03/19/23 10/01/23 History tablet) vitamins A,C,I-vlqg-hjrskv 2,148 2 tab PO BID eye health 03/19/23 10/01/23 History mcg-113 mg-45 mg-17.4 mg tablet (PreserVision AREDS) gabapentin 300 mg capsule 300 mg PO Q12 nerve pain #0 caps 04/05/23 10/01/23 Rx potassium chloride 20 mEq 20 meq PO BIDCM #0 tabs 04/27/23 10/01/23 Rx tablet,extended release(part/cryst) fluticasone propionate 50 1 spray intranasal DAILY 08/13/23 10/02/23 History mcg/actuation nasal spray,suspension furosemide 20 mg tablet 20 mg PO DAILY PRN edema 08/13/23 10/01/23 History tiotropium bromide 2.5 2 puff inhalation DAILY 08/13/23 10/02/23 History mcg/actuation mist for inhalation (Spiriva Respimat) diclofenac sodium 1 % topical gel 4 g topical BID PRN PRN knee pain 08/18/23 10/02/23 Rx (Voltaren Arthritis Pain) #100 grams albuterol sulfate 90 mcg/actuation 2 puff inhalation Q4H PRN PRN 06/13/24 Unknown History aerosol inhaler shortness of breath or wheezing cholecalciferol (vitamin D3) 25 25 mcg PO QDAY 06/13/24 Unknown History mcg (1,000 unit) capsule fluticasone 250 mcg-salmeterol 50 1 inh inhalation BID 06/13/24 Unknown History mcg/dose blistr powdr for inhalation (Wixela Inhub) folic acid 0.8 mg capsule 0.8 mg PO QDAY 06/13/24 Unknown History methotrexate sodium 2.5 mg tablet 10 mg PO QWEEK 06/13/24 Unknown History sulfasalazine 500 mg 1 g PO BID 06/13/24 Unknown History tablet,delayed release acetaminophen 500 mg tablet 1,000 mg PO TID Pain Score 1-10 06/20/24 Unknown History clindamycin HCl 300 mg capsule 600 mg (2 x 300 mg) PO ONCE #2 caps 06/20/24 Unknown Rx ferrous sulfate 325 mg (65 mg 325 mg PO QDAY 06/20/24 Unknown History iron) tablet metoprolol succinate 25 mg 25 mg PO QDAY #30 tabs 07/18/24 Unknown Rx tablet,extended release 24 hr folic acid 1 mg tablet 1 mg PO DAILY 08/23/24 Unknown History warfarin 1 mg tablet 5 mg PO DAILY 08/23/24 Unknown History warfarin 5 mg tablet See Rx Instructions .Route .COMPLEX 08/23/24 Unknown History gabapentin 300 mg capsule 300 mg PO BID #0 caps 08/27/24 Unknown Rx warfarin 6 mg tablet (Jantoven) 6 mg PO DINNER #0 tabs 08/27/24 Unknown Rx Allergy/AdvReac Type Severity Reaction Status Date / Time Penicillins Allergy Severe Anaphylaxis Verified 10/19/24 00:41 Surgical History History of transcatheter aortic valve replacement (TAVR) History of back surgery History of esophagogastroduodenoscopy (EGD) History of tonsillectomy History of embolic filter insertion Hx of foot surgery Social History household members: none Smoking Status: Former smoker alcohol intake: never substance use type: does not use ROS ROS ED ROS Narrative see HPI EXAM Physical Exam Narrative Exam Narrative: Vital signs: Reviewed General: Alert and oriented x 3. No acute distress HEENT: Head is normocephalic and atraumatic. No lacerations or abrasions to the head or face. sinuses nontender, pupils equal round and reactive. Nares are patent. Oropharynx and throat exams normal. Neck: Supple without lymphadenopathy nontender. No midline cervical spinal tenderness palpation. No step-offs or deformities. Cardiovascular: Regular rate and rhythm, no murmurs. No rubs or gallops. Normal S1 and S2 Respiratory: Clear to auscultation bilaterally. No wheezes, rales, rhonchi Abdominal: Soft and nontender. Normal bowel sounds. No guarding or rebound. Nonsurgical abdomen Extremities: There is a skin tear to the left elbow that is about 2 cm long. No laceration. No tenderness to palpation of the extremity other than right over the skin tear. Healing ecchymosis on R hand. No tenderness to palpation of the right hand, wrist or forearm. No midline thoracic or lumbar spinal tenderness to palpation. No step-offs or deformities. Hips are stable and nontender to palpation. Extremities are otherwise atraumatic and nontender to palpation with normal active range of motion. Skin: Shingles rash to right flank covered with bandaid. Neurological: Cranial nerves II through XII are grossly intact. Normal strength and sensation. Normal cerebellar function The rest of the physical exam is unremarkable Const Vital Signs: 10/19/24 00:42 10/19/24 00:42 Temperature 98.2 F Temperature Source Oral Pulse Rate 88 Respiratory Rate 18 Respiratory Effort Normal Respiratory Depth Normal Respiratory Pattern Normal Blood Pressure 138/71 H Blood Pressure Mean 93 Pulse Ox 99 Oxygen Delivery Method Room Air Room Air MDM MDM MDM Narrative Medical decision making narrative: Patient is a 79-year-old female presenting to the emergency department after mechanical fall. Patient resting bed comfortably in no acute distress. Vitals are stable. Patient is on warfarin and given her age and head trauma will obtain CT brain and cervical spine. Tetanus is up-to-date. Skin tear will be cleansed and dressed. CT brain with no acute intracranial abnormality. CT cervical spine with no fractures or dislocations. INR 2.2. Patient ambulated with walker without difficulty. Patient updated on the negative imaging. Patient discharged from the Emergency Department. I do not feel that the patient's evaluation reveals any acute reason for admission at this time. I instructed them to either follow-up with their primary care physician or promptly return to the Emergency Department for reevaluation should symptoms worsen or new symptoms develop. I explained what symptoms would indicate the need to return to the emergency department. Shared decision making was used. The patient voiced understanding of the treatment plan and is agreeable with it. Clinical impression Fall Skin tear History & Record Review Discussion w/independent historian: Patient Lab Data Attestation: I reviewed the patient's lab results. Labs: Laboratory Results - last 24 hr 10/19/24 01:05 PT 25.2 H INR 2.2 Radiography Diagnostic Testing: Clinical Impression(s) from Imaging Studies Brain CT 10/19/24 00:56 IMPRESSION: No CT evidence for acute brain abnormality. Reading Location: [place] [address] 10/19/24 00:56 IMPRESSION: Straightened cervical curve denoting myospasm. No acute vertebral fractures, structural collapse or dislocation. 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 Reading Location: [place] [address] Discharge Plan Triage Chief Complaint: Fall ED Provider: Krissy Hilario Dx/Rx/DC Orders Clinical Impression: Fall, Skin tear of elbow without complication Instructions: ED Mechanical Fall, ED Skin Tear (Skin Avulsion) Prescriptions: No Action fluticasone propion-salmeterol [Wixela Inhub] 250-50 mcg/dose blister with device 1 inh inhalation BID sulfasalazine 500 mg tablet,delayed release (DR/EC) 1 g PO BID methotrexate sodium 2.5 mg tablet 10 mg PO QWEEK Patient Comments: takes on sat. albuterol sulfate 90 mcg/actuation HFA aerosol inhaler 2 puff inhalation Q4H PRN PRN (Reason: shortness of breath or wheezing) cholecalciferol (vitamin D3) 25 mcg (1,000 unit) capsule 25 mcg PO QDAY folic acid 0.8 mg capsule 0.8 mg PO QDAY acetaminophen 500 mg tablet 1,000 mg PO TID ferrous sulfate 325 mg (65 mg iron) tablet 325 mg PO QDAY clindamycin HCl 300 mg capsule 600 mg PO ONCE Qty: 2 3RF Rx Instructions: Take 2 capsules by mouth 1 hour prior to dental appointments. PreserVision AREDS 2,148 mcg-113 mg-45 mg-17.4mg tablet 2 tab PO BID Rx Instructions: administer with AM and PM meals multivitamin [Daily Multi-Vitamin] Tablet 1 tab PO DAILY gabapentin 300 mg Capsule 300 mg PO Q12 Qty: 0 0RF potassium chloride 20 mEq Tablet,Er Particles/Crystals 20 meq PO BIDCM Qty: 0 0RF furosemide 20 mg tablet 20 mg PO DAILY PRN (Reason: edema) Spiriva Respimat 2.5 mcg/actuation mist 2 puff INHALATION DAILY fluticasone propionate 50 mcg/actuation spray,suspension 1 spray INTRANASAL DAILY diclofenac sodium [Voltaren Arthritis Pain] 1 % gel 4 g topical BID PRN PRN (Reason: knee pain) Qty: 100 0RF folic acid 1 mg tablet 1 mg PO DAILY warfarin 1 mg tablet 5 mg PO DAILY Rx Instructions: 5 mg and ., 6 mg every other day warfarin 5 mg tablet See Rx Instructions .ROUTE .COMPLEX Rx Instructions: 6mg orally Sun/Sun/Sun/Sun/sat, 5 mg orally / gabapentin 300 mg Capsule 300 mg PO BID Qty: 0 0RF warfarin [Jantoven] 6 mg Tablet 6 mg PO DINNER Qty: 0 0RF metoprolol succinate 25 mg tablet extended release 24 hr 25 mg PO QDAY Qty: 30 11RF Primary Care Provider: Deyanira Pak Referrals: Deyanira Pak MD [Primary Care Provider] - 2 Days Activity Restrictions/Additional Instructions: Your evaluation in the Emergency Department did not reveal any acute reason for admission. However, I want to emphasize that you may be early in the course of a disease process or illness even if it is not present. For this reason you should follow-up within 24 hours for reevaluation with either your primary care physician or if necessary back here in the Emergency Department. You should return to the Emergency Department immediately if your symptoms worsen or new symptoms develop. Print Language: Macanese Disposition Disposition: Home, Self Care
--- OUTSIDE RECORDS SUMMARY | 2024-10-19 01:03 | XMS RPT_ITS | CCD ---
Author Organization [facility] Care Team Providers Care Hims Manager Name Role Phone Mykel Santamaria Unavailable [...] RN, Ilda Unavailable Rachel RN, Lulú Unavailable Lynne Maynard RN Unavailable Unavailable Dr. Claudine [...] Provider Dr. Jorgito Agarwal Other Provider Sharon WHISKEY FILTERER, WHISKEY FILTERER-C Rosalina Other Provider Dr. Jasmyn Chan Referring [...] Dr. Emery Schofield Attending Provider Dr. Jasmyn hCan Attending Provider Dr. Naman Meredith Other Provider [...] Provider Dr. Jorgito Agarwal Other Provider Sharon WHISKEY FILTERER, WHISKEY FILTERER-C Rosalina Other Provider Dr. Edisnon Irvin Chi Referring Provider Dr. Claudine Durán [...] Provider Dr. Jorgito Agarwal Other Provider Sharon WHISKEY FILTERER, WHISKEY FILTERER-C Rosalina Other Provider Dr. Edinson Irvin Chi Referring Provider Claudine Durán MD Primary Care Provider Juarez WHISKEY FILTERER, WHISKEY FILTERER-C Fadia Attending Provider Dr. Zaynab Pina Attending Provider CLAUDINE DURÁN Primary Care Unavailable WILLIAM MESSINA Attending Unavailab david Ramos RN, Lulú Coyne Unavailable CLAUDINE DURÁN Primary Care Unavailable MICHAEL LUJAN Admitting Unavailable SHARAN RIVAS Attending Unavailable GENO CAMACHO Consulting Unavailable Swanson GATE CLERK.RPG PROGRAMMER, Jimbo Unavailable Mason GATE CLERK.TREE DOCTOR, Twyla Unavailable Tito MC, Delfina Unavailable Christophe MC, Juvencio Unavailable Eli RN, Pili Unavailable Unavailable Mason GATE CLERK.TREE DOCTOR, Twyla Jannet Unavailable Mason GATE CLERK.TREE DOCTOR, Twyla Unavailable Eli RN, Pili Unavailable Unavailable Mason GATE CLERK.TREE DOCTOR, Twyla Unavailable Mason GATE CLERK.TREE DOCTOR, Twyla Unavailable Dr. Claudine Durán MD Primary Care Provider JUVENCIO SAEED Attending Provider [phone] JUVENCIO SAEED Referring Provider Dr. Claudine Durán MD Referring Provider Dr. Diaz Puckett MD Attending Provider Swanson GATE CLERK.RPG PROGRAMMER, Jimbo Unavailable Loida MC, Dr. Velasquez Emergency Provider Harsh MC, Dr. Zimmerman Admit Provider Harsh MC, Dr. Zimmerman Attending Provider Vasiliy MC, Dr. Sumner Other Provider [phone] Harsh MC, Dr. Zimmerman Other Provider Dr. Jasmyn Chan DO Attending Provider Harsh MC, Dr. Zimmerman Attending Provider Dr. Jasmyn Chan DO Other Provider Zaynab Pina MD Attending Provider Louisa Durán MD, Dr. Claudine Castañeda Primary Care Provider [phone] JUVENCIO SAEED Attending Provider [phone] JUVENCIO SAEED Referring Provider Yovani MC, Dr. Worthy Attending Provider Zaynab Pina MD Referring Provider Unavaildenise Pizarro NP-CFadia Attending Provider Yovani NOLEN Efelmerongbe Attending Unavailabl e Talampas, Claudine D Primary Care Unavailable Mathew Orellana Attending Unavailable Talampas, Claudine D Primary Care Unavailable Oleghe OLS, Efstevenbe Attending Unavailabl e Talampas, Claudine D Primary Care Unavailable Oleghe OLS, Efewongbe Attending Unavailabl e Talampas, Claudine D Primary Care Unavailable Oleghe OLS, Efelmerongbe Attending Unavailabl e Talampas, Claudine D Primary Care Unavailable Oleghe OLS, Efelmerongbe Attending Unavailabl e Talampas, Claudine D Primary Care Unavailable Oleghe OLS, Efewongbe Attending Unavailabl e Oleghe OLS, Efewongbe Referring Unavailabl e Talampas, Claudine D Primary Care Unavailable Burak Amanda Consulting Unavailable Talampas, Claudine D Primary Care Unavailable Jasmyn Chan Attending Unavailable [facility] Admitting Unavailable [facility] Consulting Unavailable Oleghe OLS, Efewshala Attending Unavailabl e Talampas, Claudine D Primary Care Unavailable Talampas, Claudine D Primary Care Unavailable RUMMELL, JE Referring Unavailable RUMMELL, JE Attending Unavailable RUMMELL, JE Attending Unavailable Talampas, Claudine D Primary Care Unavailable RUMMELL, JE Referring Unavailable Talampas, Claudine D Primary Care Unavailable RUMMELL, JE Referring Unavailable RUMMELL, JE Attending Unavailable Talampas, Claudine D Primary Care Unavailable RUMMELL, JE Attending Unavailable RUMMELL, JE Referring Unavailable Oleghe OLS, Efewongbe Attending Unavailabl e [...] e Talampas, Claudine D Primary Care Unavailable Fadia Pizarro Attending Unavailable Talampas, Claudine D Primary Care Unavailable RUMMELL, JE Attending Unavailable Talampas, Claudine D Primary Care Unavailable RUMMELL, JE Referring Unavailable Talampas, Claudine D Primary Care Unavailable RUMMELL, JE Referring Unavailable RUMMELL, JE Attending Unavailable Oleghe OLS, Efewongbe Referring Unavailabl e [...] Unavailable Talampas, Claudine D Primary Care Unavailable Oleghe, Efewongbe Attending Unavailable Talampas, Claudine D Primary Care Unavailable Harsh, Erasmo Consulting Unavailable Harsh, Erasmo Attending Unavailable Harsh, Erasmo Admitting Unavailable Burak Amanda Consulting Unavailable Jasmyn Chan Attending Unavailable Jasmyn Chan Consulting Unavailable Oleghe OLS, Efewongbe Attending Unavailabl e Talampas, Claudine D Primary Care Unavailable TALAMPAS, CLAUDINE D Primary Care Unavailable TAMICA FRANCISYA Attending Unavailable TRENT-PALSHOOK, MONICA Referring Unavai lable [...] D Primary Care Unavailable SWANSONVINITAI Attending Unavailable TALAMPAS, CLAUDINE D Primary Care Unavailable SELF Referring Unavailable TALAMPAS, CLAUDINE D Primary Care Unavailable TRENT-PALSHOOK, MONICA Referring Unavai lable TALAMPAS, CLAUDINE D Attending Unavailable TALAMPAS, CLAUDINE D Primary Care Unavailable SELF Referring Unavailable TALAMPAS, CLAUDINE D Primary Care Unavailable RTENT-PALSHOOK, MONICA Referring Unavai lable TALAMPAS, CLAUDINE D Primary Care Unavailable TRENT-PALSHOOK, MONICA Referring Unavai lable TALAMPAS, CLAUDINE D Primary Care Unavailable TRENT-PALSHOOK, MONICA Referring Unavai lable TRENT-PALSHOOK, MONICA Referring Unavai lable TALAMPAS, CLAUDINE D Primary Care Unavailable TALAMPAS, CLAUDINE D Primary Care Unavailable JUVENCIO SAEED Attending Unavailable TALAMPAS, CLAUDINE D Primary Care Unavailable TALAMPAS, CLAUDINE D Primary Care Unavailable SWANSONJIMBO Referring Unavailable TALAMPAS, CLAUDINE D Primary Care Unavailable TALAMPAS, CLAUDINE D Primary Care Unavailable TALAMPAS, CLAUDINE D Primary Care Unavailable TALAMPAS, CLAUDINE D Primary Care Unavailable GENO HART Referring Unavailable TALAMPAS, CLAUDINE D Primary Care Unavailable TALAMPAS, CLAUDINE D Primary Care Unavailable LEANDRA VENEGAS Referring Unavailable TALAMPAS, CLAUDINE D Primary Care Unavailable LEANDRA VENEGAS Referring Unavailable TALAMPAS, CLAUIDNE D Primary Care Unavailable MICHAEL BEAVERS Attending [...] lable TALAMPAS, CLAUDINE D Primary Care Unavailable TARANAHASTI, VIDYASAGAR Attending UnavailJIMBO Ramos Referring Unavailable TALAMPAS, CLAUDINE D Primary Care Unavailable KALAHASTI, VIDYASAGAR Referring Unavailabl e TALAMPAS, CLAUDINE D Primary Care Unavailable TALAMPAS, CLAUDINE D Primary Care Unavailable GENO HART Referring Unavailable TALAMPAS, CLAUDINE D Primary Care Unavailable TALAMPAS, CLAUDINE D Primary Care Unavailable BIBI ALEGRIA Referring Unavailable TALAMPAS, CLAUDINE D Primary Care Unavailable TALAMPAS, CLAUDINE D Primary Care Unavailable LEANDRA VENEGAS Referring Unavailable TALAMPAS, CLAUDINE D Primary Care Unavailable HELDLEANDRA Referring Unavailable TALAMPAS, CLAUDINE D Primary Care Unavailable HELDLEANDRA Referring Unavailable Allergies Allergy Classification Reported Allergen(s) Allergy Type Date of Onset Reaction(s) Facility Penicillins (antibiotic) (5 sources) Penicillins Drug Allergy 5 [facility] (20 sources) Penicillins; Translations: [PENICILLINS] Propensity to adverse reactions (disorder) 5 [facility] Medications Current Medications Medication Drug Class(es) [...] 7 days. 7 tablet 10/11/2023 10/18/2023 Active [id number] 200 actuat albuterol 0.09 mg/actuat metered dose [...] (20 sources) Vitamin C Start: 03-19-2023 Vitamins A,C,G-Ebau-Ezfkvn (Preservision Areds) 2,148 mcg-113 mg-45 mg-17.4mg tablet Active 2 {tbl} PO TWICE A DAY March 19, 2023 1:00am eye health administer with AM and PM meals Start: 03-19-2023 Start: 03-13-2022 take 2 tablets by mo [facility] once daily at breakfast vit A,C,Y-Ivlx-Fajaly (OCUVITE PRESERVISION) 2,148 mcg-113 mg-45 mg-17.4mg tab Take 2 tablets by mouth daily with breakfast. 03/13/2022 Active Comment on above: Take 2 tablets by mo [facility] daily with breakfast. cholecalciferol 0.025 mg oral capsule (20 sources) Vitamin D Start: 06-14-19 25 take 1 capsule by mouth once daily [...] Start: 01-24-2011 take 1 capsule by mo [facility] once daily Cholecalciferol, Vitamin D3, 1,000 unit ORAL Cap Take 1 capsule by mouth once daily. 1 capsule 0 01/24/2011 Active Comment on above: Take 1 capsule by mo [facility] once daily. clindamycin 300 mg oral capsule (9 sources) Lincosamide Antibacterial Start: 06-21-19 take 2 [...] days. ferrous sulfate 325 mg oral tablet (7 sources) Start: take 1 tablet by mouth [...] End: 04-27-2023 Fluticasone Propionate 50 mc g/actuation Stephen,Suspension Discontinued 1 NMA NASAL DAILY 0 0 [...] (FLONASE) 50 mcg/actuation nasal spray Use 1 Stephen in each nostril once daily. 3 Each 3 07/20/2022 06/20/2024 Discontinued Comment on above: Use 1 Stephen in each nostril once daily. Fluticasone Propion-Salmeterol [...] 12:00am Start: 06-13-2024 take 1 capsule by [facility] once daily Folic Acid 0.8 mg [...] Comment on above: Take 1 capsule by [facility] twice daily. Take 1 capsule by [facility] two times a day. iv contrast (will [...] succinate 25 mg extended release oral tablet (14 sources) beta-Adrenergic Pietro Start: 07-18-2024 take 1 tablet by mouth once daily Metoprolol Succinate 25 mg tablet extended release 24 hr Active 25 mg PO daily 30 July 18, 2024 12:00am take 25 mg by mouth once daily M ETOPROLOL SUCCINATE ORAL Take 25 mg by mouth once daily. Active Multivitamin (Daily Multi-Vitamin) tablet (17 sources) Start: 03-19-2023 Multivitamin ( Daily Multi-Vitamin) [...] Comment on above: Take 1 tablet by [facility] twice daily. sulfaSALAzine 500 mg delayed release oral tablet (20 sources) Aminosalicylate Start: 06-13-2024 take 1 g by mouth twice daily Sulfasalazine 500 mg tablet,delayed release (DR/EC) Active 1 g PO TWICE A DAY June 13, 2024 12:00am Start: 02-01-2024 take 2 tablets by [facility] twice daily sulfaSALAzine EC (AZULFIDINE EN) 500 [...] 2.5 ug by inhalation once daily Tiotropium [place] (Spiriva Respimat) 2.5 mcg/actuation mist Active 2 [...] ug by inhalation every twenty-four hours Tiotropium [place] (Spiriva Respimat) 2.5 mcg/actuation mist Discontinued 2 NMA INHALATION Q24H March 19, 2023 1:00am April 27, 2023 2:17pm Start: 03-19-2023 End: 04-27-2023 Start: 03-19-2023 End: 04-27-2023 take 1 puff(s) by inhalation every twenty-four hours Tiotropium [place] (Spiriva Respimat) 2.5 mcg/actuation mist Discontinued 2 [...] Start: 08-23-2024 take 5 tablets by mo [facility] once daily, then take 6 mg by [...] mg t ablet Discontinued 7.5 mg PO August 13, 2023 12:00am August 18, 2023 [...] 10:50am Start: 04-27-2023 Start: 11-21-2022 End: 08-23-2024 take 1 tablet by mouth once [...] WHILE AWAKE 0 April 05, 2023 1:00am August 13, [...] HFA aerosol inhaler Discontinued 2 PUFF INHALATION Q1March 19, 2023 1:00am April 27, [...] 3 doses. citalopram 10 mg oral tablet (20 sources) Serotonin Reuptake Inhibitor Start: End: take [...] above: Take 1 tablet by sl[facility] daily with breakfast for 4 doses. dextromethorphan hydrobromide 2 mg/ml / guaiFENesin 20 mg/ml oral solution (20 sources) Uncompetitive N-nmpgty-O-aspartate Receptor Antagonist, Sigma-1 Agonist Start: End: take [...] 1:00am docusate sodium 50 mg / sennosides, shelter 8.6 mg oral tablet (20 sources) Start: [...] Comment on above: Take 1 capsule by [facility] three times a day as needed for diarrhea for up to 7 days. Menthol / Zinc Oxide (11 sources) Start: 04-27-2023 End: 08-13-2023 Menthol-Zinc Oxide [...] April 05, 2023 12:27pm Start: 03-25-2023 End: 02-06-2024 take 1 tablet by mouth every eight [...] Comment on above: Take 1 tablet by [facility] twice daily as needed. Take with food [place] 7-Nbk-Lnn-Fish Oil (Fish Oil) 1,200 (144-216) mg capsule (8 sources) Start: 10-01-2023 End: 08-27-2024 [place] 6-Gbo-Giu-Fish Oil (Fish Oil) 1,200 (144-216) mg capsule Discontinued 1 NMA PO DAILY October 01, 2023 12:00am August 27, 2024 12:00pm Start: 10-01-2023 [place] 3-Dha-Ep a-Fish Oil (Fish Oil) 1,200 (144-216) [...] oral tablet (20 sources) Aldosterone Antagonist Start: 09-05-19 End: 08-24-19 take 1 tablet by mouth once daily Spironolactone 25 mg tablet Discontinued 25 mg PO DAILY June 13, 2024 12:00am August 23, 2024 10:38am sucralfate 1000 mg oral tablet (8 sources) Aluminum Complex Start: 08-18-19 End: 10-01-19 take 1 tablet by mouth twice daily before mealtime Sucralfate 1 gram Tablet Discontinued 1 g PO TWICE DAILY BEFORE MEALS 60 30 0 August 18, 2023 12:00am October 01, 2023 9:20am Vitamin A-Vitamin C-Vit E-Min (Ocutabs) tablet (16 sources) Start: 03-26-19 End: 04-27-19 24 Vitamin A-Vitamin C-Vit E-Min (Ocutabs) tablet Discontinued [...] 2:17pm Start: 03-26-2023 take 2 tablets by [facility] once daily Vitamin A-Vitamin C-Vit E-Min (Ocutabs) tablet Active 2 TABLET PO DAILY March 26, 2023 12:00am Problems Active Problems Problem Classification Problem Date Documented Da te Episodic/Chronic Acquired foot deformities (5 sources) Hammer toe; Translations: [Other hammer toe(s) (acquired), left foot] Chronic Acute cerebrovascular disease (3 sources) Subdural hemorrhage; Translations: [Subdural hemorrhage] Onset: 5 Chronic Acute posthemorrhagic anemia (8 sources) Acute posthemorrhagic anemia; Translations: [Acute posthemorrhagic [...] Chronic Deficiency and other anemia (20 sources) Anemia, unspecified; Translations: [Anemia, unspecified] 04-05-2023 Episodic Delirium, dementia, and amnestic and other cognitive disorders (1 source) Age-related physical debility; Translations: [Age-related physical debility] Onset: 5 Chronic Diseases of white blood cells (1 source) Leukocytosis; Translations: [Elevated white blood cell count, unspecified] 04-01-2023 Chronic Disorders of lipid metabolism (1 source) Raised low density lipoprotein cholesterol; Translations: [Pure hypercholesterolemia, unspecified] Chronic E Codes: Fall (5 sources) Fall on same level from slipping, tripping or stumbling ; Translations: [Fall on same level from slipping, tripping and stumbling without subsequent striking against object, initial encounter] 08-23-2024 Episodic Esophageal disorders (20 sources) Gastroesophageal reflux disease; Translations: [Gastro-esophageal reflux disease without esophagitis] Onset: 6 03-06-2005 Chronic Essential hypertension (20 sources) Essential hypertension; Translations: [Essential (primary) hypertension] Onset: 1 Resolved: 6 03-07-2015 Chronic Fluid and electrolyte disorders (1 source) Hypo-osmolality and hyponatremia; Translations: [Hypo-osmolality and hyponatremia] Onset: 5 Episodic Fracture of upper limb (12 sources) Closed fracture of distal end of [...] ulcer with hemorrhage] 07-17-2023 Chronic Gastrointestinal hemorrhage (9 sources) Gastrointestinal hemorrhage; Translations: [Gastrointestinal hemorrhage, unspecified] 10-11-2023 Episodic Gout and other crystal arthropathies (3 sources) Calcium pyrophosphate deposition disease; Translations: [Other chondrocalcinosis, unspecified site] Chronic Heart valve disorders (20 sources) Non-rheumatic mitral valve stenosis; Translations: [Nonrheumatic mitral (valve) stenosis] Onset: 4 08-27-2023 Chronic Immunizations and screening for infectious disease (1 source) Vaccination needed; Translations: [Encounter for immunization] Episodic Intracranial injury (1 source) Concussion without loss of consciousness, subsequent encounter; Translations: [Concussion without loss of consciousness, subsequent encounter] Onset: 5 Episodic Malaise and fatigue (20 sources) Asthenia; [...] current use of drug therapy; Translations: [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 (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) drug therapy] 08-22-2023 Episodic Other aftercare (2 sources) Long-term current use of antibiotic; Translations: [rodent exterminator (current) use of antibiotics] 12-18-2023 Episodic Other [...] injuries and conditions due to external causes (10 sources) Closed injury of head; Translations: [Unspecified injury of head, initial encounter] 08-23-2024 Episodic Other injuries and conditions due to external causes (1 source) Other specified injuries of left wrist, hand and finger(s), initial encounter; Translations: [Other specified injuries of left wrist, hand and finger(s), initial encounter] Onset: Episodic Other injuries and conditions due to external causes (1 source) Unspecified injury of head, initial encounter; Translations: [Unspecified injury of head, initial encounter] Onset: 5 Episodic Other liver diseases (1 source) Alkaline [...] Episodic Other nutritional; endocrine; and metabolic disorders (8 sources) Failure to thrive 05-08-2023 Episodic Other skin disorders (1 source) Dystrophia unguium; Translations: [Nail dystrophy] Episodic Other upper respiratory disease (3 sources) Bronchospasm; Translations: [Acute bronchospasm] Episodic Other upper respiratory infections (1 source) Chronic sinusitis; Translations: [Chronic sinusitis, unspecified] Chronic Residual codes; unclassified (3 sources) Confusional state; Translations: [Disorientation, unspecified] 03-26-2023 Episodic Residual codes; unclassified (3 sources) Disorientation, unspecified; Translations: [Unspecified psychosis] 03-26-2023 Episodic Residual codes; unclassified (20 sources) Peripheral edema; Translations: [Localized edema] 03-28-2023 Episodic Residual codes; unclassified (20 sources) Edema of lower extremity; Translations: [Localized edema] 03-31-2023 Episodic Residual codes; unclassified (3 sources) Localized edema; Translations: [Edema] Onset: 4 03-31-2023 Episodic Residual codes; unclassified (20 sources) Edema; Translations: [Edema, unspecified] 04-05-2023 Episodic Residual codes; unclassified (14 sources) Edema, unspecified; Translations: [Edema] 04-05-2023 Episodic Residual codes; unclassified (1 source) Bilateral lower limb edema; Translations: [Localized edema] 09-24-2023 Episodic Retinal detachments; defects; vascular occlusion; and [...] displacement, lumbar region] Onset: 2 03-20-2011 Chronic Superficial injury; contusion (5 sources) Abrasion of face; Translations: [Abrasion of other part of head, initial encounter] 08-23-2024 Episodic Unclassified (20 sources) High Risk Chronic Disease Home Monitoring Problem Onset: 3 07-05-2022 Unclassified (4 sources) in one week-call to schedule appointment Viral infection (1 source) COVID-19; Translations: [COVID-19] [...] unspecified] Onset: 9 Resolved: 9 04-01-2023 Episodic Heart valve disorders (20 sources) Heart murmur; Translations: [Cardiac murmur, unspecified] Onset: 9 Resolved: 9 08-05-2018 Episodic Mycoses (20 sources) Histoplasmosis; Translations: [Histoplasmosis, unspecified] Onset: 9 03-03-2018 Episodic Other acquired deformities (20 sources) Lumbar spondylolisthesis; Translations: [Spondylolisthesis, lumbar region] Onset: 8 07-30-2017 Episodic Other aftercare (20 sources) Long-term current use of anticoagulant; Translations: [rodent exterminator (current) use of 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] Onset: 0 12-10-2014 Episodic Other aftercare (1 source) rodent exterminator (current) use of 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; Translations: [prison current use of anticoagulant therapy] Onset: 5 Episodic Other aftercare (1 source) rodent exterminator (current) use of antibiotics; Translations: [Encounter for [...] [Pericardial effusion (noninflammatory)] Onset: 4 08-27-2023 Episodic Phlebitis; thrombophlebitis and thromboembolism (20 sources) History of recurrent deep vein thrombosis; Translations: [Personal history of other venous thrombosis and embolism] Onset: 5 Resolved: 9 10-29-2016 Episodic Residual codes; unclassified (20 sources) History of immunosuppressive therapy; Translations: [Personal history of immunosupression therapy] Onset: 4 03-23-2023 Episodic Residual codes; unclassified (1 source) Pain, unspecified; Translations: [Pain] Onset: 5 Episodic Screening and history of mental health and substance abuse codes (2 sources) Encounter for screening for depression; Translations: [Encounter for screening examination for other mental health and behavioral disorders] Onset: 5 Episodic Spondylosis; intervertebral disc disorders; other back problems (20 sources) Lumbago co-occurrent with right-side sciatica; Translations: [Lumbago with sciatica, right side] Onset: 2 Resolved: 5 05-05-2016 Episodic Sprains and strains (1 source) Sprain of unspecified ligament of right ankle, initial encounter; Translations: [Sprain of unspecified ligament of right ankle, initial encounter] Onset: 5 Episodic Unclassified (20 sources) Failure to thrive; Translations: [Failure to thrive] 04-05-2023 Viral infection (20 sources) Verruca vulgaris; Translations: [Other viral warts] Onset: 4 Episodic Results Test Name Value Interpretation Reference Range Facility Absolute lymphocyte countOrd ered By: Zaynab Pina on 10-02-2024 Lymphocytes Auto (Unsp spec) [#/Vol] 0.96 10*3/uL 0.83-4.51 [facility] Absolute neutrophil countOrd ered By: Zaynab Pina on 10-02-2024 Neutrophils (Bld) [#/Vol] 3.7 10*3/uL 2.0-7.7 [facility] Anion gap in Serum or Plasma Ordered By: Zaynab Pina on 10-02-2024 Anion gap [Moles/Vol] 12 mmol/L 5-15 [facility] Automated lymphocyte count a s percentage of total leukocytesOrdered By: Zaynab Pina on 10-02-2024 Lymphocytes/100 WBC Auto (Unsp spec) 17.0 % Low 19-41 [facility] BUN/creatinine ratioOrdered By: Zaynab Pina on 10-02-2024 Urea nitrogen/Creatinine [Mass ratio] 20.9 mg/mg High 10-20 [facility] Basophil percentageOrdered B y: Zaynab Pina on 10-02-2024 Basophils/100 WBC (Bld) 0.4 % 0-1 [facility] Carbon dioxide, total [Moles /volume] in Central venous bloodOrdered By: Zaynab Pina on 10-02-2024 CO2 [Moles/Vol] 21.1 mmol/L 21.0-32.0 [facility] Chloride assayOrdered By: Christine Pina on 10-02-2024 Chloride [Moles/Vol] 95 mmol/L Low 98-108 [facility] Eosinophil percentageOrdered By: Zaynab Pina on 10-02-2024 Eosinophils/100 WBC (Bld) 0.9 % 0-5 [facility] Erythrocyte distribution wid th ratioOrdered By: Zaynab Pina on 10-02-2024 Erythrocyte distribution width (RBC) [Ratio] 13.8 % 11.6-14.6 [facility] Erythrocyte distribution wid th standard deviationOrdered By: Claudiopantegojoesph Pina on 10-02-2024 Erythrocyte distribution width (RBC) [Ratio] 48.2 fl High 35.1-43.9 [facility] Glomerular filtration rate ( GFR) estimation/1.73 sq m using serum, plasma, or whole bOrdered By: Zaynab Pina on 10-02-2024 GFR/1.73 sq M.predicted among non-blacks MDRD (S/P/Bld) [Vol rate/Area] 93 mL/min/{1.73_m2} >60 [facility] Comment on above: mL/min/1.73m2 CKD-EP I Creatinine Equation (2020) Hematocrit Auto (Bld) [Volum e fraction]Ordered By: Zaynab Pina on 10-02-2024 Hematocrit (Bld) [Volume fraction] 32.9 % Low 37-47 [facility] Hemoglobin measurementOrdere d By: Zaynab Cherrynatiloly on 10-02-2024 Hemoglobin (Bld) [Mass/Vol] 11.2 g/dL Low 12.0-15.0 [facility] Immature granulocytes/100 WB C Auto (Bld)Ordered By: Zaynab Pina on 10-02-2024 Immature granulocytes/100 WBC (Bld) 0.700 % 0.0-0.9 [facility] Comment on above: IG% - Immature Granu locytes (promyelocytes, myelocytes and metamyelocytes) > 1% indicates that a LEFT SHIFT is Present. MCV (mean corpuscular volume ) determinationOrdered By: Zaynab Pina on 10-02-2024 MCV (RBC) [Entitic vol] 95.1 fL 81-99 [facility] Mean corpuscular hemoglobin (MCH) determinationOrdered By: Zaynab Pina on 10-02-2024 MCH (RBC) [Entitic mass] 32.4 pg High 27.0-32.0 [facility] Mean corpuscular hemoglobin concentration (MCHC) determinationOrdered By: Zaynab Pina on 10-02-2024 MCHC (RBC) [Mass/Vol] 34.0 g/dL 32-36 [facility] Mean platelet volume determi nationOrdered By: Zaynab Pina on 10-02-2024 Platelet mean volume (Bld) [Entitic vol] 10.9 fL 6.2-12.0 [facility] Monocyte percentageOrdered B y: Zaynba Pina on 10-02-2024 Monocytes/100 WBC (Bld) 15.2 % High 0-10 [facility] Neutrophil percentageOrdered By: Zaynab Pina on 10-02-2024 Neutrophils/100 WBC (Bld) 65.8 % 47-70 [facility] Nucleated red blood cell per centageOrdered By: Zaynab Pina on 10-02-2024 Nucleated RBC/100 WBC (Bld) [Ratio] 0 % 0-5 [facility] Platelet countOrdered By: Christine ewongjoesph Pina on 10-02-2024 Platelets (Bld) [#/Vol] 160 10*3/uL 150-450 [facility] Potassium measurement (mass/ volume)Ordered By: Zaynab Pina on 10-02-2024 Potassium (Unsp spec) [Mass/Vol] 3.9 mmol/L 3.3-5.1 [facility] RBC Auto (Bld) [#/Vol]Ordere d By: Claudiotanjoesph Pina on 10-02-2024 RBC (Bld) [#/Vol] 3.46 10*6/uL Low 4.2-5.4 [facility] Serum creatinine measurement (mass/volume)Ordered By: Zaynab Pina on 10-02-2024 Creatinine [Mass/Vol] 0.58 mg/dL Low 0.70-1.20 [facility] Serum glucose measurement (m ass/volume)Ordered By: Zaynab Pina on 10-02-2024 Glucose [Mass/Vol] 80 mg/dL 70-99 [facility] Serum or plasma calcium monica urement (mass/volume)Ordered By: Zaynab Pina on 10-02-2024 Calcium [Mass/Vol] 9.0 mg/dL 7.6-11.0 [facility] Serum or plasma urea nitroge n measurement (mass/volume)Ordered By: Zaynab Pina on 10-02-2024 Urea nitrogen [Mass/Vol] 12 mg/dL 4-19 [facility] Sodium levelOrdered By: Claudio shala Yovani on 10-02-2024 Sodium [Moles/Vol] 129 mmol/L Low 133-145 [facility] White blood cell (WBC) count Ordered By: Zaynab Pina on 10-02-2024 WBC (Bld) [#/Vol] 5.6 10*3/uL 4.4-11.0 [facility] International normalized rat io (INR) measurement by fingerstickOrdered By: Zaynab Pina on 09-29-2024 INR Coag (BldC) [Relative time] 1.9 [facility] Comment on above: Critical Value > 4.0 Whole blood prothrombin time Ordered By: Zaynab Pina on 09-29-2024 PT Coag (Bld) [Time] 20.7 s High 11.7-14.9 [facility] Absolute lymphocyte countOrd ered By: Zaynab Cherrynatiloly on 09-25-2024 Lymphocytes Auto (Unsp spec) [#/Vol] 1.19 10*3/uL 0.83-4.51 [facility] Absolute neutrophil countOrd ered By: Zaynab Cherrynatiloly on 09-25-2024 Neutrophils (Bld) [#/Vol] 3.8 10*3/uL 2.0-7.7 [facility] Anion gap in Serum or Plasma Ordered By: Zaynab Pina on 09-25-2024 Anion gap [Moles/Vol] 11 mmol/L 5-15 [facility] Automated lymphocyte count a s percentage of total leukocytesOrdered By: Zaynab Pina on 09-25-2024 Lymphocytes/100 WBC Auto (Unsp spec) 20.2 % 19-41 [facility] BUN/creatinine ratioOrdered By: Zaynab Pina on 09-25-2024 Urea nitrogen/Creatinine [Mass ratio] 29.4 mg/mg High 10-20 [facility] Basophil percentageOrdered B y: Zaynab Cherrynatiolly on 09-25-2024 Basophils/100 WBC (Bld) 0.7 % 0-1 [facility] Carbon dioxide, total [Moles /volume] in Central venous bloodOrdered By: Zaynab Pina on 09-25-2024 CO2 [Moles/Vol] 22.1 mmol/L 21.0-32.0 [facility] Chloride assayOrdered By: Christine elmershala Pina on 09-25-2024 Chloride [Moles/Vol] 101 mmol/L 98-108 [facility] Eosinophil percentageOrdered By: Zaynab Pina on 09-25-2024 Eosinophils/100 WBC (Bld) 2.9 % 0-5 [facility] Erythrocyte distribution wid th ratioOrdered By: Zaynab Pina on 09-25-2024 Erythrocyte distribution width (RBC) [Ratio] 14.3 % 11.6-14.6 [facility] Erythrocyte distribution wid th standard deviationOrdered By: Zaynab Pina on 09-25-2024 Erythrocyte distribution width (RBC) [Ratio] 50.6 fl High 35.1-43.9 [facility] Glomerular filtration rate ( GFR) estimation/1.73 sq m using serum, plasma, or whole bOrdered By: Zaynab Pina on 09-25-2024 GFR/1.73 sq M.predicted among non-blacks MDRD (S/P/Bld) [Vol rate/Area] 92 mL/min/{1.73_m2} >60 [facility] Comment on above: mL/min/1.73m2 CKD-EP I Creatinine Equation (2020) Hematocrit Auto (Bld) [Volum e fraction]Ordered By: Zaynab Pina on 09-25-2024 Hematocrit (Bld) [Volume fraction] 33.8 % Low 37-47 [facility] Hemoglobin measurementOrdere d By: Zaynab Pina on 09-25-2024 Hemoglobin (Bld) [Mass/Vol] 11.3 g/dL Low 12.0-15.0 [facility] Immature granulocytes/100 WB C Auto (Bld)Ordered By: Zaynab Pina 09-25-2024 Immature granulocytes/100 WBC (Bld) 0.500 % 0.0-0.9 [facility] Comment on above: IG% - Immature Granu locytes (promyelocytes, myelocytes and metamyelocytes) > 1% indicates that a LEFT SHIFT is Present. International normalized rat io (INR) calculationOrdered By: Zaynab Pina on 09-25-2024 INR Coag (Bld) [Relative time] 1.5 {INR} [facility] MCV (mean corpuscular volume ) determinationOrdered By: Zaynab Pina 09-25-2024 MCV (RBC) [Entitic vol] 96.6 fL 81-99 [facility] Mean corpuscular hemoglobin (MCH) determinationOrdered By: Zaynab Pina 09-25-2024 MCH (RBC) [Entitic mass] 32.3 pg High 27.0-32.0 [facility] Mean corpuscular hemoglobin concentration (MCHC) determinationOrdered By: Zaynab Pina on 09-25-2024 MCHC (RBC) [Mass/Vol] 33.4 g/dL 32-36 [facility] Mean platelet volume determi nationOrdered By: Zaynab Pina on 09-25-2024 Platelet mean volume (Bld) [Entitic vol] 11.1 fL 6.2-12.0 [facility] Monocyte percentageOrdered B y: Zaynab Pina on 09-25-2024 Monocytes/100 WBC (Bld) 11.9 % High 0-10 [facility] Neutrophil percentageOrdered By: Zaynab Pina on 09-25-2024 Neutrophils/100 WBC (Bld) 63.8 % 47-70 [facility] Nucleated red blood cell per centageOrdered By: Zaynab Pina on 09-25-2024 Nucleated RBC/100 WBC (Bld) [Ratio] 0 % 0-5 [facility] Platelet countOrdered By: Christine Pina on 09-25-2024 Platelets (Bld) [#/Vol] 175 10*3/uL 150-450 [facility] Potassium measurement (mass/ volume)Ordered By: Zaynab Pina on 09-25-2024 Potassium (Unsp spec) [Mass/Vol] 3.9 mmol/L 3.3-5.1 [facility] Prothrombin timeOrdered By: Zaynab Pina on 09-25-2024 PT Coag (PPP) [Time] 18.4 s High 11.7-14.9 [facility] RBC Auto (Bld) [#/Vol]Ordere d By: Zaynab Pina on 09-25-2024 RBC (Bld) [#/Vol] 3.50 10*6/uL Low 4.2-5.4 [facility] Serum creatinine measurement (mass/volume)Ordered By: Zaynab Pina on 09-25-2024 Creatinine [Mass/Vol] 0.62 mg/dL Low 0.70-1.20 [facility] Serum glucose measurement (m ass/volume)Ordered By: Zaynab Pina on 09-25-2024 Glucose [Mass/Vol] 79 mg/dL 70-99 [facility] Serum or plasma calcium monica urement (mass/volume)Ordered By: Zaynab Pina on 09-25-2024 Calcium [Mass/Vol] 8.9 mg/dL 7.6-11.0 [facility] Serum or plasma urea nitroge n measurement (mass/volume)Ordered By: Zaynab Pina on 09-25-2024 Urea nitrogen [Mass/Vol] 18 mg/dL 4-19 [facility] Sodium levelOrdered By: Claudio Pina on 09-25-2024 Sodium [Moles/Vol] 135 mmol/L 133-145 [facility] White blood cell (WBC) count Ordered By: Zaynab Pina on 09-25-2024 WBC (Bld) [#/Vol] 5.9 10*3/uL 4.4-11.0 [facility] International normalized rat io (INR) measurement by fingerstickOrdered By: Zaynab Pina on 09-22-2024 INR Coag (BldC) [Relative time] 2.3 [facility] Comment on above: Critical Value > 4.0 Whole blood prothrombin time Ordered By: Zaynab Pina on 09-22-2024 PT Coag (Bld) [Time] 25.1 s High 11.7-14.9 [facility] Absolute lymphocyte countOrd ered By: Zaynab Pina on 09-18-2024 Lymphocytes Auto (Unsp spec) [#/Vol] 1.05 10*3/uL 0.83-4.51 [facility] Absolute neutrophil countOrd ered By: Zaynab Pina on 09-18-2024 Neutrophils (Bld) [#/Vol] 3.8 10*3/uL 2.0-7.7 [facility] Anion gap in Serum or Plasma Ordered By: Zaynab Pina on 09-18-2024 Anion gap [Moles/Vol] 13 mmol/L 5-15 [facility] Automated lymphocyte count a s percentage of total leukocytesOrdered By: Zaynab Pina on 09-18-2024 Lymphocytes/100 WBC Auto (Unsp spec) 18.2 % Low 19-41 [facility] BUN/creatinine ratioOrdered By: Zaynab Pina on 09-18-2024 Urea nitrogen/Creatinine [Mass ratio] 24.9 mg/mg High 10-20 [facility] Basophil percentageOrdered B y: Zaynab Pina on 09-18-2024 Basophils/100 WBC (Bld) 0.7 % 0-1 [facility] Carbon dioxide, total [Moles /volume] in Central venous bloodOrdered By: Christineamilcar Pina on 09-18-2024 CO2 [Moles/Vol] 20.4 mmol/L Low 21.0-32.0 [facility] Chloride assayOrdered By: Christine elmershala Pina on 09-18-2024 Chloride [Moles/Vol] 102 mmol/L 98-108 [facility] Eosinophil percentageOrdered By: elmerpantegojoesph Pina on 09-18-2024 Eosinophils/100 WBC (Bld) 2.6 % 0-5 [facility] Erythrocyte distribution wid th ratioOrdered By: [facility] on 09-18-2024 Erythrocyte distribution width (RBC) [Ratio] 14.8 % High 11.6-14.6 [facility] Erythrocyte distribution wid th standard deviationOrdered By: elmerpantegojoesph Cherrynatiloly on 09-18-2024 Erythrocyte distribution width (RBC) [Ratio] 53.0 fl High 35.1-43.9 [facility] Glomerular filtration rate ( GFR) estimation/1.73 sq m using serum, plasma, or whole bOrdered By: Zaynab Pina on 09-18-2024 GFR/1.73 sq M.predicted among non-blacks MDRD (S/P/Bld) [Vol rate/Area] 91 mL/min/{1.73_m2} >60 [facility] Comment on above: mL/min/1.73m2 CKD-EP I Creatinine Equation (2020) Hematocrit Auto (Bld) [Volum e fraction]Ordered By: Zaynab Pina on 09-18-2024 Hematocrit (Bld) [Volume fraction] 34.0 % Low 37-47 [facility] Hemoglobin measurementOrdere d By: Zaynab Pina on 09-18-2024 Hemoglobin (Bld) [Mass/Vol] 11.4 g/dL Low 12.0-15.0 [facility] Immature granulocytes/100 WB C Auto (Bld)Ordered By: Zaynab Pina on 09-18-2024 Immature granulocytes/100 WBC (Bld) 0.700 % 0.0-0.9 [facility] Comment on above: IG% - Immature Granu locytes (promyelocytes, myelocytes and metamyelocytes) > 1% indicates that a LEFT SHIFT is Present. International normalized rat io (INR) calculationOrdered By: amilcar Pina on 09-18-2024 INR Coag (Bld) [Relative time] 3.0 {INR} [facility] MCV (mean corpuscular volume ) determinationOrdered By: elmerpantegojoesph Cherryloly on 09-18-2024 MCV (RBC) [Entitic vol] 97.4 fL 81-99 [facility] Mean corpuscular hemoglobin (MCH) determinationOrdered By: [facility] on 09-18-2024 MCH (RBC) [Entitic mass] 32.7 pg High 27.0-32.0 [facility] Mean corpuscular hemoglobin concentration (MCHC) determinationOrdered By: elmerpantegojoesph Pina on 09-18-2024 MCHC (RBC) [Mass/Vol] 33.5 g/dL 32-36 [facility] Mean platelet volume determi nationOrdered By: elmerpantegojoesph Cherryloly on 09-18-2024 Platelet mean volume (Bld) [Entitic vol] 10.9 fL 6.2-12.0 [facility] Monocyte percentageOrdered B y: Zaynab Cherryloly on 09-18-2024 Monocytes/100 WBC (Bld) 11.4 % High 0-10 [facility] Neutrophil percentageOrdered By: elmerpantegojoesph Cherryloly on 09-18-2024 Neutrophils/100 WBC (Bld) 66.4 % 47-70 [facility] Nucleated red blood cell per centageOrdered By: elmerpantegojoesph Cherryloly on 09-18-2024 Nucleated RBC/100 WBC (Bld) [Ratio] 0 % 0-5 [facility] Platelet countOrdered By: Christine amilcar Dilipnatiloly on 09-18-2024 Platelets (Bld) [#/Vol] 179 10*3/uL 150-450 [facility] Potassium measurement (mass/ volume)Ordered By: Christineamilcar Cherrynatiloly on 09-18-2024 Potassium (Unsp spec) [Mass/Vol] 3.9 mmol/L 3.3-5.1 [facility] Prothrombin timeOrdered By: Zaynab Pina on 09-18-2024 PT Coag (PPP) [Time] 31.5 s High 11.7-14.9 [facility] RBC Auto (Bld) [#/Vol]Ordere d By: Zaynab Dilipjohnny on 09-18-2024 RBC (Bld) [#/Vol] 3.49 10*6/uL Low 4.2-5.4 [facility] Serum creatinine measurement (mass/volume)Ordered By: Claudiotanjoesph Cherrynatiloly on 09-18-2024 Creatinine [Mass/Vol] 0.63 mg/dL Low 0.70-1.20 [facility] Serum glucose measurement (m ass/volume)Ordered By: Zaynab Pina on 09-18-2024 Glucose [Mass/Vol] 82 mg/dL 70-99 [facility] Serum or plasma calcium mnoica urement (mass/volume)Ordered By: Zaynab Cherrynatiloly on 09-18-2024 Calcium [Mass/Vol] 9.0 mg/dL 7.6-11.0 [facility] Serum or plasma urea nitroge n measurement (mass/volume)Ordered By: Zaynab Pina on 09-18-2024 Urea nitrogen [Mass/Vol] 16 mg/dL 4-19 [facility] Sodium levelOrdered By: Claudio last Dilipnatiloly on 09-18-2024 Sodium [Moles/Vol] 135 mmol/L 133-145 [facility] White blood cell (WBC) count Ordered By: Christineelmertanjoesph Cherrynatiloly on 09-18-2024 WBC (Bld) [#/Vol] 5.8 10*3/uL 4.4-11.0 [facility] International normalized rat io (INR) calculationOrdered By: Zaynab Pina on 09-15-2024 INR Coag (Bld) [Relative time] 1.8 {INR} [facility] Prothrombin timeOrdered By: Zaynab Pina on 09-15-2024 PT Coag (PPP) [Time] 21.3 s High 11.7-14.9 [facility] Absolute lymphocyte countOrd ered By: Zaynab Pina on 09-11-2024 Lymphocytes Auto (Unsp spec) [#/Vol] 1.10 10*3/uL 0.83-4.51 [facility] Absolute neutrophil countOrd ered By: Zaynab Pina on 09-11-2024 Neutrophils (Bld) [#/Vol] 3.6 10*3/uL 2.0-7.7 [facility] Anion gap in Serum or Plasma Ordered By: Zaynab Pina on 09-11-2024 Anion gap [Moles/Vol] 12 mmol/L 5-15 [facility] Automated lymphocyte count a s percentage of total leukocytesOrdered By: Zaynab Pina on 09-11-2024 Lymphocytes/100 WBC Auto (Unsp spec) 19.9 % 19-41 [facility] BUN/creatinine ratioOrdered By: Zaynab Pina on 09-11-2024 Urea nitrogen/Creatinine [Mass ratio] 24.2 mg/mg High 10-20 [facility] Basophil percentageOrdered B y: Zaynab Pina on 09-11-2024 Basophils/100 WBC (Bld) 0.5 % 0-1 [facility] Carbon dioxide, total [Moles /volume] in Central venous bloodOrdered By: Zaynab Pina on 09-11-2024 CO2 [Moles/Vol] 21.7 mmol/L 21.0-32.0 [facility] Chloride assayOrdered By: Christine Pina on 09-11-2024 Chloride [Moles/Vol] 103 mmol/L 98-108 [facility] Eosinophil percentageOrdered By: Zaynab Pina on 09-11-2024 Eosinophils/100 WBC (Bld) 2.2 % 0-5 [facility] Erythrocyte distribution wid th ratioOrdered By: Zaynab Pina on 09-11-2024 Erythrocyte distribution width (RBC) [Ratio] 15.5 % High 11.6-14.6 [facility] Erythrocyte distribution wid th standard deviationOrdered By: Claudiopantegojoesph Pina on 09-11-2024 Erythrocyte distribution width (RBC) [Ratio] 55.0 fl High 35.1-43.9 [facility] Glomerular filtration rate ( GFR) estimation/1.73 sq m using serum, plasma, or whole bOrdered By: elmerpantegojoesph Pina on 09-11-2024 GFR/1.73 sq M.predicted among non-blacks MDRD (S/P/Bld) [Vol rate/Area] 91 mL/min/{1.73_m2} >60 [facility] Comment on above: mL/min/1.73m2 CKD-EP I Creatinine Equation (2020) Hematocrit Auto (Bld) [Volum e fraction]Ordered By: Zaynab Pina on 09-11-2024 Hematocrit (Bld) [Volume fraction] 33.3 % Low 37-47 [facility] Hemoglobin measurementOrdere d By: elmerpantegojoesph Pina on 09-11-2024 Hemoglobin (Bld) [Mass/Vol] 11.1 g/dL Low 12.0-15.0 [facility] Immature granulocytes/100 WB C Auto (Bld)Ordered By: Zaynab Pina 09-11-2024 Immature granulocytes/100 WBC (Bld) 0.500 % 0.0-0.9 [facility] Comment on above: IG% - Immature Granu locytes (promyelocytes, myelocytes and metamyelocytes) > 1% indicates that a LEFT SHIFT is Present. International normalized rat io (INR) calculationOrdered By: Zaynab Pina on 09-11-2024 INR Coag (Bld) [Relative time] 2.1 {INR} [facility] MCV (mean corpuscular volume ) determinationOrdered By: Zaynab Pina 09-11-2024 MCV (RBC) [Entitic vol] 96.5 fL 81-99 [facility] Mean corpuscular hemoglobin (MCH) determinationOrdered By: Zaynab Pina on 09-11-2024 MCH (RBC) [Entitic mass] 32.2 pg High 27.0-32.0 [facility] Mean corpuscular hemoglobin concentration (MCHC) determinationOrdered By: Zaynab Pina on 09-11-2024 MCHC (RBC) [Mass/Vol] 33.3 g/dL 32-36 [facility] Mean platelet volume determi nationOrdered By: Zaynab Pina on 09-11-2024 Platelet mean volume (Bld) [Entitic vol] 10.6 fL 6.2-12.0 [facility] Monocyte percentageOrdered B y: Zaynab Pina on 09-11-2024 Monocytes/100 WBC (Bld) 12.0 % High 0-10 [facility] Neutrophil percentageOrdered By: Zaynab Pina on 09-11-2024 Neutrophils/100 WBC (Bld) 64.9 % 47-70 [facility] Nucleated red blood cell per centageOrdered By: Zaynab Pina on 09-11-2024 Nucleated RBC/100 WBC (Bld) [Ratio] 0 % 0-5 [facility] Platelet countOrdered By: Christine Pina on 09-11-2024 Platelets (Bld) [#/Vol] 202 10*3/uL 150-450 [facility] Potassium measurement (mass/ volume)Ordered By: Zaynab Pina on 09-11-2024 Potassium (Unsp spec) [Mass/Vol] 3.8 mmol/L 3.3-5.1 [facility] Prothrombin timeOrdered By: Zaynab Pina on 09-11-2024 PT Coag (PPP) [Time] 23.8 s High 11.7-14.9 [facility] RBC Auto (Bld) [#/Vol]Ordere d By: Zaynab Pina on 09-11-2024 RBC (Bld) [#/Vol] 3.45 10*6/uL Low 4.2-5.4 [facility] Serum creatinine measurement (mass/volume)Ordered By: Zaynab Pina on 09-11-2024 Creatinine [Mass/Vol] 0.65 mg/dL Low 0.70-1.20 [facility] Serum glucose measurement (m ass/volume)Ordered By: Zaynab Pina on 09-11-2024 Glucose [Mass/Vol] 80 mg/dL 70-99 [facility] Serum or plasma calcium monica urement (mass/volume)Ordered By: Zaynab Pina on 09-11-2024 Calcium [Mass/Vol] 9.0 mg/dL 7.6-11.0 [facility] Serum or plasma urea nitroge n measurement (mass/volume)Ordered By: Zaynab Pina on 09-11-2024 Urea nitrogen [Mass/Vol] 16 mg/dL 4-19 [facility] Sodium levelOrdered By: Claudio powellhasmukh Yovani on 09-11-2024 Sodium [Moles/Vol] 137 mmol/L 133-145 [facility] White blood cell (WBC) count Ordered By: Zanyab Pina on 09-11-2024 WBC (Bld) [#/Vol] 5.5 10*3/uL 4.4-11.0 [facility] International normalized rat io (INR) measurement by fingerstickOrdered By: Zaynab Pina on 09-08-2024 INR Coag (BldC) [Relative time] 2.4 [facility] Comment on above: Critical Value > 4.0 Whole blood prothrombin time Ordered By: Zaynab Pina on 09-08-2024 PT Coag (Bld) [Time] 25.4 s High 11.7-14.9 [facility] Absolute lymphocyte countOrd ered By: Zaynab Pina on 09-04-2024 Lymphocytes Auto (Unsp spec) [#/Vol] 1.06 10*3/uL 0.83-4.51 [facility] Absolute neutrophil countOrd ered By: Zaynab Pina on 09-04-2024 Neutrophils (Bld) [#/Vol] 4.0 10*3/uL 2.0-7.7 [facility] Anion gap in Serum or Plasma Ordered By: Zaynab Pina on 09-04-2024 Anion gap [Moles/Vol] 13 mmol/L 5-15 [facility] Automated lymphocyte count a s percentage of total leukocytesOrdered By: Danajoesph Cherrynatiloly on 09-04-2024 Lymphocytes/100 WBC Auto (Unsp spec) 18.2 % Low 19-41 [facility] BUN/creatinine ratioOrdered By: Christineamilcar Cherrynatiloly on 09-04-2024 Urea nitrogen/Creatinine [Mass ratio] 23.8 mg/mg High 10-20 [facility] Basophil percentageOrdered B y: Zaynab Alvesloly on 09-04-2024 Basophils/100 WBC (Bld) 0.5 % 0-1 [facility] Carbon dioxide, total [Moles /volume] in Central venous bloodOrdered By: Christineamilcar Cherrynatiloly on 09-04-2024 CO2 [Moles/Vol] 21.1 mmol/L 21.0-32.0 [facility] Chloride assayOrdered By: Christine elmershala Pina on 09-04-2024 Chloride [Moles/Vol] 102 mmol/L 98-108 [facility] Eosinophil percentageOrdered By: [facility]ip[facility] on 09-04-2024 Eosinophils/100 WBC (Bld) 1.9 % 0-5 [facility] Erythrocyte distribution wid th ratioOrdered By: Zaynab Dilipnatiloly on 09-04-2024 Erythrocyte distribution width (RBC) [Ratio] 15.8 % High 11.6-14.6 [facility] Erythrocyte distribution wid th standard deviationOrdered By: Claudiopantegojoesph Cherrynatiloly on 09-04-2024 Erythrocyte distribution width (RBC) [Ratio] 54.7 fl High 35.1-43.9 [facility] Glomerular filtration rate ( GFR) estimation/1.73 sq m using serum, plasma, or whole bOrdered By: Christineelmertanjoesph Cherrynatiloly on 09-04-2024 GFR/1.73 sq M.predicted among non-blacks MDRD (S/P/Bld) [Vol rate/Area] 91 mL/min/{1.73_m2} >60 [facility] Comment on above: mL/min/1.73m2 CKD-EP I Creatinine Equation (2020) Hematocrit Auto (Bld) [Volum e fraction]Ordered By: Zaynab Pina on 09-04-2024 Hematocrit (Bld) [Volume fraction] 32.5 % Low 37-47 [facility] Hemoglobin measurementOrdere d By: Claudiotanjoesph Cherrynatiloly on 09-04-2024 Hemoglobin (Bld) [Mass/Vol] 11.0 g/dL Low 12.0-15.0 [facility] Immature granulocytes/100 WB C Auto (Bld)Ordered By: Zaynab Pina on 09-04-2024 Immature granulocytes/100 WBC (Bld) 0.700 % 0.0-0.9 [facility] Comment on above: IG% - Immature Granu locytes (promyelocytes, myelocytes and metamyelocytes) > 1% indicates that a LEFT SHIFT is Present. International normalized rat io (INR) calculationOrdered By: Zaynab Pina on 09-04-2024 INR Coag (Bld) [Relative time] 2.5 {INR} [facility] MCV (mean corpuscular volume ) determinationOrdered By: Zaynab Pina on 09-04-2024 MCV (RBC) [Entitic vol] 94.2 fL 81-99 [facility] Mean corpuscular hemoglobin (MCH) determinationOrdered By: Claudiopantegojoesph Pina on 09-04-2024 MCH (RBC) [Entitic mass] 31.9 pg 27.0-32.0 [facility] Mean corpuscular hemoglobin concentration (MCHC) determinationOrdered By: Zaynab Pina on 09-04-2024 MCHC (RBC) [Mass/Vol] 33.8 g/dL 32-36 [facility] Mean platelet volume determi nationOrdered By: Zaynab Cherrynatiloly on 09-04-2024 Platelet mean volume (Bld) [Entitic vol] 10.8 fL 6.2-12.0 [facility] Monocyte percentageOrdered B y: Zaynab Pina on 09-04-2024 Monocytes/100 WBC (Bld) 11.0 % High 0-10 [facility] Neutrophil percentageOrdered By: Zaynab Pina on 07-17-2025 Neutrophils/100 WBC (Bld) 67.7 % 47-70 [facility] Nucleated red blood cell per centageOrdered By: Zaynab Pina on 09-04-2024 Nucleated RBC/100 WBC (Bld) [Ratio] 0 % 0-5 [facility] Platelet countOrdered By: Christine Pina on 09-04-2024 Platelets (Bld) [#/Vol] 224 10*3/uL 150-450 [facility] Potassium measurement (mass/ volume)Ordered By: Zaynab Pina on 09-04-2024 Potassium (Unsp spec) [Mass/Vol] 3.9 mmol/L 3.3-5.1 [facility] Prothrombin timeOrdered By: Zaynab Pina on 09-04-2024 PT Coag (PPP) [Time] 27.6 s High 11.7-14.9 [facility] RBC Auto (Bld) [#/Vol]Ordere d By: Zaynab Pina on 09-04-2024 RBC (Bld) [#/Vol] 3.45 10*6/uL Low 4.2-5.4 [facility] Serum creatinine measurement (mass/volume)Ordered By: Zaynab Pina on 09-04-2024 Creatinine [Mass/Vol] 0.63 mg/dL Low 0.70-1.20 [facility] Serum glucose measurement (m ass/volume)Ordered By: Zaynab Pina on 09-04-2024 Glucose [Mass/Vol] 78 mg/dL 70-99 [facility] Serum or plasma calcium monica urement (mass/volume)Ordered By: Zaynab Pina on 09-04-2024 Calcium [Mass/Vol] 9.2 mg/dL 7.6-11.0 [facility] Serum or plasma urea nitroge n measurement (mass/volume)Ordered By: Zaynab Pina on 09-04-2024 Urea nitrogen [Mass/Vol] 15 mg/dL 4-19 [facility] Sodium levelOrdered By: Claudio Pina on 09-04-2024 Sodium [Moles/Vol] 136 mmol/L 133-145 [facility] White blood cell (WBC) count Ordered By: Zaynab Pina on 09-04-2024 WBC (Bld) [#/Vol] 5.8 10*3/uL 4.4-11.0 [facility] International normalized rat io (INR) measurement by fingerstickOrdered By: Zaynab Pina on 09-01-2024 INR Coag (BldC) [Relative time] 2.7 [facility] Comment on above: Critical Value > 4.0 Whole blood prothrombin time Ordered By: Zaynab Pina on 09-01-2024 PT Coag (Bld) [Time] 28.1 s High 11.7-14.9 [facility] Prothrombin Time w/INRon INR Normal [facility] Comment on above: Result Comment: Canc elled via OM: Order cancelled - Patient discharged Performed By: #### L 300.3900 #### [facility] [address] [place], [place], [id number] PROTIME Normal 11.7-14.9 [facility] Comment on above: Result Comment: Canc elled via OM: Order cancelled - Patient discharged Performed By: #### L 300.3900 #### [facility] [address] [place], [place], [id number] Absolute lymphocyte countOrd ered By: Zaynab Pina on 08-28-2024 Lymphocytes Auto (Unsp spec) [#/Vol] 1.04 10*3/uL 0.83-4.51 [facility] Absolute neutrophil countOrd ered By: Zaynab Pina on 08-28-2024 Neutrophils (Bld) [#/Vol] 4.0 10*3/uL 2.0-7.7 [facility] Anion gap in Serum or Plasma Ordered By: Zaynab Pina on 08-28-2024 Anion gap [Moles/Vol] 10 mmol/L 5-15 [facility] Automated lymphocyte count a s percentage of total leukocytesOrdered By: Zaynab Pina on 08-28-2024 Lymphocytes/100 WBC Auto (Unsp spec) 17.6 % Low 19-41 [facility] BUN/creatinine ratioOrdered By: Zaynab Pina on 08-28-2024 Urea nitrogen/Creatinine [Mass ratio] 23.6 mg/mg High 10-20 [facility] Basophil percentageOrdered B y: Zaynab Pina on 08-28-2024 Basophils/100 WBC (Bld) 0.7 % 0-1 [facility] Bilirubin, totalOrdered By: Zaynab Pina on 08-28-2024 Bilirubin [Mass/Vol] 0.42 mg/dL 0.00-1.30 [facility] Carbon dioxide, total [Moles /volume] in Central venous bloodOrdered By: Zaynab Pina on 08-28-2024 CO2 [Moles/Vol] 23.7 mmol/L 21.0-32.0 [facility] Chloride assayOrdered By: Christine elmershala Pina on 08-28-2024 Chloride [Moles/Vol] 103 mmol/L 98-108 [facility] Eosinophil percentageOrdered By: Claudiotanjoesph Cherrynatiloly on 08-28-2024 Eosinophils/100 WBC (Bld) 1.7 % 0-5 [facility] Erythrocyte distribution wid th ratioOrdered By: Zaynab Pina on 08-28-2024 Erythrocyte distribution width (RBC) [Ratio] 16.8 % High 11.6-14.6 [facility] Erythrocyte distribution wid th standard deviationOrdered By: Zaynab Pina on 08-28-2024 Erythrocyte distribution width (RBC) [Ratio] 58.6 fl High 35.1-43.9 [facility] Glomerular filtration rate ( GFR) estimation/1.73 sq m using serum, plasma, or whole bOrdered By: Zaynab Pina on 08-28-2024 GFR/1.73 sq M.predicted among non-blacks MDRD (S/P/Bld) [Vol rate/Area] 90 mL/min/{1.73_m2} >60 [facility] Comment on above: mL/min/1.73m2 CKD-EP I Creatinine Equation (2020) Hematocrit Auto (Bld) [Volum e fraction]Ordered By: Zaynab Pina on 08-28-2024 Hematocrit (Bld) [Volume fraction] 33.3 % Low 37-47 [facility] Hemoglobin measurementOrdere d By: Zaynab Pina on 08-28-2024 Hemoglobin (Bld) [Mass/Vol] 10.9 g/dL Low 12.0-15.0 [facility] Immature granulocytes/100 WB C Auto (Bld)Ordered By: Zaynab Pina on 08-28-2024 Immature granulocytes/100 WBC (Bld) 0.300 % 0.0-0.9 [facility] Comment on above: IG% - Immature Granu locytes (promyelocytes, myelocytes and metamyelocytes) > 1% indicates that a LEFT SHIFT is Present. International normalized rat io (INR) calculationOrdered By: aZynab Pina on 08-28-2024 INR Coag (Bld) [Relative time] 2.2 {INR} [facility] - Chemistry and C hemistry - challengeOrdered By: Zaynab Pina on 08-28-2024 AST [Catalytic activity/Vol] 23 U/L <32 [facility] MCV (mean corpuscular volume ) determinationOrdered By: Zaynab Pina 08-28-2024 MCV (RBC) [Entitic vol] 96.0 fL 81-99 [facility] Mean corpuscular hemoglobin (MCH) determinationOrdered By: Zaynab Pina 08-28-2024 MCH (RBC) [Entitic mass] 31.4 pg 27.0-32.0 [facility] Mean corpuscular hemoglobin concentration (MCHC) determinationOrdered By: Zaynab Pina on 08-28-2024 MCHC (RBC) [Mass/Vol] 32.7 g/dL 32-36 [facility] Mean platelet volume determi nationOrdered By: Zaynab Pina on 08-28-2024 Platelet mean volume (Bld) [Entitic vol] 10.9 fL 6.2-12.0 [facility] Monocyte percentageOrdered B y: Zaynab Pina on 08-28-2024 Monocytes/100 WBC (Bld) 11.5 % High 0-10 [facility] Neutrophil percentageOrdered By: Zaynab Pina on 08-28-2024 Neutrophils/100 WBC (Bld) 68.2 % 47-70 [facility] Nucleated red blood cell per centageOrdered By: Zaynab Pina on 08-28-2024 Nucleated RBC/100 WBC (Bld) [Ratio] 0 % 0-5 [facility] Platelet countOrdered By: Christine Pina on 08-28-2024 Platelets (Bld) [#/Vol] 183 10*3/uL 150-450 [facility] Potassium measurement (mass/ volume)Ordered By: Zaynab Pina on 08-28-2024 Potassium (Unsp spec) [Mass/Vol] 4.0 mmol/L 3.3-5.1 [facility] Prothrombin Time w/INRon INR Normal [facility] Comment on above: Result Comment: Canc elled via OM: Order cancelled - Patient discharged Performed By: #### L 300.3900 #### [facility] [address] [place], [place], [id number] PROTIME Normal 11.7-14.9 [facility] Comment on above: Result Comment: Canc elled via OM: Order cancelled - Patient discharged Performed By: #### L 300.3900 #### [facility] [address] [place], [address] Prothrombin timeOrdered By: Zaynab Pina on 08-28-2024 PT Coag (PPP) [Time] 24.5 s High 11.7-14.9 [facility] RBC Auto (Bld) [#/Vol]Ordere d By: Zaynab Pina on 08-28-2024 RBC (Bld) [#/Vol] 3.47 10*6/uL Low 4.2-5.4 [facility] Serum creatinine measurement (mass/volume)Ordered By: Zaynab Pina on 08-28-2024 Creatinine [Mass/Vol] 0.66 mg/dL Low 0.70-1.20 [facility] Serum globulin measurementOr dered By: Zaynab Pina on 08-28-2024 Globulin (S) [Mass/Vol] 2.6 g/dL 2.2-4.2 [facility] Serum glucose measurement (m ass/volume)Ordered By: Zaynab Pina on 08-28-2024 Glucose [Mass/Vol] 88 mg/dL 70-99 [facility] Serum or plasma alanine llamas otransferase (ALT) measurementOrdered By: Zaynab Pina on 08-28-2024 ALT [Catalytic activity/Vol] 16 U/L <35 [facility] Serum or plasma albumin monica urement (mass/volume)Ordered By: Zaynab Pina on 08-28-2024 Albumin [Mass/Vol] 3.8 g/dL 3.4-4.8 [facility] Serum or plasma albumin/glob ulin mass ratioOrdered By: Zaynab Pina on 08-28-2024 Albumin/Globulin [Mass ratio] 1.5 {ratio} 0.9-2.4 [facility] Serum or plasma alkaline juan m sphatase measurementOrdered By: Zaynab Pina on 08-28-2024 ALP [Catalytic activity/Vol] 101 U/L 35-104 [facility] Serum or plasma calcium monica urement (mass/volume)Ordered By: Zaynab Pina 08-28-2024 Calcium [Mass/Vol] 9.1 mg/dL 7.6-11.0 [facility] Serum or plasma urea nitroge n measurement (mass/volume)Ordered By: Zaynab Pina on 08-28-2024 Urea nitrogen [Mass/Vol] 16 mg/dL 4-19 [facility] Sodium levelOrdered By: Claudio Pina on 08-28-2024 Sodium [Moles/Vol] 137 mmol/L 133-145 [facility] Total proteinOrdered By: Malik Pina on 08-28-2024 Protein [Mass/Vol] 6.3 g/dL 5.9-8.4 [facility] White blood cell (WBC) count Ordered By: Zaynab Pina 08-28-2024 WBC (Bld) [#/Vol] 5.9 10*3/uL 4.4-11.0 [facility] International normalized rat io (INR) calculationOrdered By: Jasmyn Chan on 08-27-2024 INR Coag (Bld) [Relative time] 1.7 {INR} [facility] Prothrombin Time w/INRon INR Coag (PPP) [Relative time] 1.7 {INR} Normal [facility] Comment on above: Performed By: #### L 300.3900 ####[facility] [address] [place], [address] PT Coag (PPP) [Time] 20.6 s High 11.7-14.9 [facility] Comment on above: Performed By: #### L 300.3900 ####[facility] [address] [place], [address] Prothrombin timeOrdered By: Jasmyn Chan on 08-27-2024 PT Coag (PPP) [Time] 20.6 s High 11.7-14.9 [facility] Prothrombin Time w/INRon INR Coag (PPP) [Relative time] 1.4 {INR} Normal [facility] Comment on above: Performed By: #### L 300.3900 ####[facility] [address] [place], [address] PT Coag (PPP) [Time] 17.7 s High 11.7-14.9 [facility] Comment on above: Performed By: #### L 300.3900 ####[facility] [address] [place], [address] Prothrombin Time w/INRon INR Coag (PPP) [Relative time] 1.4 {INR} Normal [facility] Comment on above: Performed By: #### L 300.3900 #### [facility] [address] [place], [address] PT Coag (PPP) [Time] 17.7 s High 11.7-14.9 [facility] Comment on above: Performed By: #### L 300.3900 #### [facility] [address] [place], [address] Absolute lymphocyte countOrd ered By: Erasmo House on 08-24-2024 Lymphocytes Auto (Unsp spec) [#/Vol] 0.85 10*3/uL 0.83-4.51 [facility] Absolute neutrophil countOrd ered By: Erasmoalicja House on 08-24-2024 Neutrophils (Bld) [#/Vol] 3.7 10*3/uL 2.0-7.7 [facility] Anion gap in Serum or Plasma Ordered By: Erasmo House on 08-24-2024 Anion gap [Moles/Vol] 13 mmol/L 5-15 [facility] Automated lymphocyte count a s percentage of total leukocytesOrdered By: Erasmo House on 08-24-2024 Lymphocytes/100 WBC Auto (Unsp spec) 15.8 % Low 19-41 [facility] BUN/creatinine ratioOrdered By: Erasmo House on 08-24-2024 Urea nitrogen/Creatinine [Mass ratio] 22.5 mg/mg High 10-20 [facility] Basic Metabolic Profile (BMP )on 08-24-2024 BUN/CRE 22.5 RATIO High 10-20 [facility] Comment on above: Performed By: #### L 100.0100, L300.3900, L500.2500 ####[facility] [address] [place], [address] Calcium [Mass/Vol] 9.0 mg/dL Normal 7.6-11.0 [facility] Comment on above: Performed By: #### L 100.0100, L300.3900, L500.2500 ####[facility] [address] [place], [address] Chloride [Moles/Vol] 105 mmol/L Normal 98-108 [facility] Comment on above: Performed By: #### L 100.0100, L300.3900, L500.2500 ####[facility] [address] [place], [address] CO2 [Moles/Vol] 21.9 mmol/L Normal 21.0-32.0 [facility] Comment on above: Performed By: #### L 100.0100, L300.3900, L500.2500 ####[facility] [address] [place], [address] Creatinine [Mass/Vol] 0.65 mg/dL Low 0.70-1.20 [facility] Comment on above: Performed By: #### L 100.0100, L300.3900, L500.2500 ####[facility] [address] [place], [address] ECRCL 48.72 ml/min Low 50-250 [facility] Comment on above: Performed By: #### L 100.0100, L300.3900, L500.2500 ####[facility] [address] [place], [address] GAP 13 Normal 5-15 [facility] Comment on above: Performed By: #### L 100.0100, L300.3900, L500.2500 ####[facility] [address] [place], [address] GFR/1.73 sq M.predicted among non-blacks MDRD (S/P/Bld) [Vol rate/Area] 91 mL/min/{1.73_m2} Normal >60 [facility] Comment on above: Result Comment: mL/m in/1.73m2 CKD-EPI Creatinine Equation (2020) Performed By: #### L 100.0100, L300.3900, L500.2500 ####[facility] [address] [place], [address] Glucose [Mass/Vol] 90 mg/dL Normal 70-99 [facility] Comment on above: Performed By: #### L 100.0100, L300.3900, L500.2500 ####[facility] [address] [place], [address] Potassium [Moles/Vol] 3.9 mmol/L Normal 3.3-5.1 [facility] Comment on above: Performed By: #### L 100.0100, L300.3900, L500.2500 ####[facility] [address] [place], [address] Sodium [Moles/Vol] 140 mmol/L Normal 133-145 [facility] Comment on above: Performed By: #### L 100.0100, L300.3900, L500.2500 ####[facility] [address] [place], [address] Urea nitrogen [Mass/Vol] 15 mg/dL Normal 4-19 [facility] Comment on above: Performed By: #### L 100.0100, L300.3900, L500.2500 ####[facility] [address] [place], [address] Basophil percentageOrdered B y: Erasmojermaine House on 08-24-2024 Basophils/100 WBC (Bld) 0.6 % 0-1 [facility] CBC W/Diff, Automatedon 07-0 Absolute Lymph 0.85 X10 3/uL Normal 0.83-4.51 [facility] Comment on above: Performed By: #### L 100.0100, L300.3900, L500.2500 #### [facility] [address] [place], [address] Absolute Neut 3.7 X10 3/uL Normal 2.0-7.7 [facility] Comment on above: Performed By: #### L 100.0100, L300.3900, L500.2500 #### [facility] [address] [place], [address] Basophils/100 WBC (Bld) 0.6 % Normal 0-1 [facility] Comment on above: Performed By: #### L 100.0100, L300.3900, L500.2500 #### [facility] [address] [place], [address] Eosinophils/100 WBC (Bld) 1.5 % Normal 0-5 [facility] Comment on above: Performed By: #### L 100.0100, L300.3900, L500.2500 #### [facility] [address] [place], [address] Erythrocyte distribution width (RBC) [Ratio] 17.2 % High 11.6-14.6 [facility] Comment on above: Performed By: #### L 100.0100, L300.3900, L500.2500 #### [facility] [address] [place], [address] Hematocrit (Bld) [Volume fraction] 34.6 % Low 37-47 [facility] Comment on above: Performed By: #### L 100.0100, L300.3900, L500.2500 #### [facility] [address] [place], [address] Hemoglobin (Bld) [Mass/Vol] 11.4 g/dL Low 12.0-15.0 [facility] Comment on above: Performed By: #### L 100.0100, L300.3900, L500.2500 #### [facility] [address] [place], [address] IG% 0.400 Normal 0.0-0.9 [facility] Comment on above: Result Comment: IG% - Immature Granulocytes (promyelocytes, myelocytes and metamyelocytes) > 1% indicates that a LEFT SHIFT is Present. Performed By: #### L 100.0100, L300.3900, L500.2500 #### [facility] [address] [place], [address] Lymphocytes/100 WBC (Bld) 15.8 % Low 19-41 [facility] Comment on above: Performed By: #### L 100.0100, L300.3900, L500.2500 #### [facility] [address] [place], [address] MCH (RBC) [Entitic mass] 31.8 pg Normal 27.0-32.0 [facility] Comment on above: Performed By: #### L 100.0100, L300.3900, L500.2500 #### [facility] [address] [place], [address] MCHC (RBC) [Mass/Vol] 32.9 g/dL Normal 32-36 [facility] Comment on above: Performed By: #### L 100.0100, L300.3900, L500.2500 #### [facility] [address] [place], [address] MCV (RBC) [Entitic vol] 96.6 fL Normal 81-99 [facility] Comment on above: Performed By: #### L 100.0100, L300.3900, L500.2500 #### [facility] [address] [place], [address] Monocytes/100 WBC (Bld) 12.6 % High 0-10 [facility] Comment on above: Performed By: #### L 100.0100, L300.3900, L500.2500 #### [facility] [address] [place], [address] Neutrophils/100 WBC (Bld) 69.1 % Normal 47-70 [facility] Comment on above: Performed By: #### L 100.0100, L300.3900, L500.2500 #### [facility] [address] [place], [address] Nucleated RBC (Bld) [#/Vol] 0 10*3/uL Normal 0-5 [facility] Comment on above: Performed By: #### L 100.0100, L300.3900, L500.2500 #### [facility] [address] [place], [address] Platelet mean volume (Bld) [Entitic vol] 11.0 fL Normal 6.2-12.0 [facility] Comment on above: Performed By: #### L 100.0100, L300.3900, L500.2500 #### [facility] [address] [place], [address] Platelets (Bld) [#/Vol] 154 10*3/uL Normal 150-450 [facility] Comment on above: Performed By: #### L 100.0100, L300.3900, L500.2500 #### [facility] [address] [place], [address] RBC (Bld) [#/Vol] 3.58 10*6/uL Low 4.2-5.4 [facility] Comment on above: Performed By: #### L 100.0100, L300.3900, L500.2500 #### [facility] [address] [place], [address] RDW SD 61.1 fl High 35.1-43.9 [facility] Comment on above: Performed By: #### L 100.0100, L300.3900, L500.2500 #### [facility] [address] [place], [address] WBC (Bld) [#/Vol] 5.4 10*3/uL Normal 4.4-11.0 [facility] Comment on above: Performed By: #### L 100.0100, L300.3900, L500.2500 #### [facility] [address] [place], [address] Carbon dioxide, total [Moles /volume] in Central venous bloodOrdered By: Erasmo House on 08-24-2024 CO2 [Moles/Vol] 21.9 mmol/L 21.0-32.0 [facility] Chloride assayOrdered By: Edouard House on 08-24-2024 Chloride [Moles/Vol] 105 mmol/L 98-108 [facility] Eosinophil percentageOrdered By: Erasmo House on 08-24-2024 Eosinophils/100 WBC (Bld) 1.5 % 0-5 [facility] Erythrocyte distribution wid th ratioOrdered By: Erasmo House on 08-24-2024 Erythrocyte distribution width (RBC) [Ratio] 17.2 % High 11.6-14.6 [facility] Erythrocyte distribution wid th standard deviationOrdered By: Erasmo House on 08-24-2024 Erythrocyte distribution width (RBC) [Ratio] 61.1 fl High 35.1-43.9 [facility] Glomerular filtration rate ( GFR) estimation/1.73 sq m using serum, plasma, or whole bOrdered By: Erasmo House on 08-24-2024 GFR/1.73 sq M.predicted among non-blacks MDRD (S/P/Bld) [Vol rate/Area] 91 mL/min/{1.73_m2} >60 [facility] Comment on above: mL/min/1.73m2 CKD-EP I Creatinine Equation (2020) Hematocrit Auto (Bld) [Volum e fraction]Ordered By: Erasmo House on 08-24-2024 Hematocrit (Bld) [Volume fraction] 34.6 % Low 37-47 [facility] Hemoglobin measurementOrdere d By: Erasmo House on 08-24-2024 Hemoglobin (Bld) [Mass/Vol] 11.4 g/dL Low 12.0-15.0 [facility] Immature granulocytes/100 WB C Auto (Bld)Ordered By: Erasmo House on 08-24-2024 Immature granulocytes/100 WBC (Bld) 0.400 % 0.0-0.9 [facility] Comment on above: IG% - Immature Granu locytes (promyelocytes, myelocytes and metamyelocytes) > 1% indicates that a LEFT SHIFT is Present. MCV (mean corpuscular volume ) determinationOrdered By: Erasmo House on 08-24-2024 MCV (RBC) [Entitic vol] 96.6 fL 81-99 [facility] Mean corpuscular hemoglobin (MCH) determinationOrdered By: Erasmo House on 08-24-2024 MCH (RBC) [Entitic mass] 31.8 pg 27.0-32.0 [facility] Mean corpuscular hemoglobin concentration (MCHC) determinationOrdered By: Erasmo House on 08-24-2024 MCHC (RBC) [Mass/Vol] 32.9 g/dL 32-36 [facility] Mean platelet volume determi nationOrdered By: Erasmo House on 08-24-2024 Platelet mean volume (Bld) [Entitic vol] 11.0 fL 6.2-12.0 [facility] Monocyte percentageOrdered B y: Erasmo House on 08-24-2024 Monocytes/100 WBC (Bld) 12.6 % High 0-10 [facility] Neutrophil percentageOrdered By: Erasmo House on 08-24-2024 Neutrophils/100 WBC (Bld) 69.1 % 47-70 [facility] Nucleated red blood cell per centageOrdered By: Erasmo House on 08-24-2024 Nucleated RBC/100 WBC (Bld) [Ratio] 0 % 0-5 [facility] Platelet countOrdered By: Edouard House on 08-24-2024 Platelets (Bld) [#/Vol] 154 10*3/uL 150-450 [facility] Potassium measurement (mass/ volume)Ordered By: Erasmo House on 08-24-2024 Potassium (Unsp spec) [Mass/Vol] 3.9 mmol/L 3.3-5.1 [facility] Prothrombin Time w/INRon INR Coag (PPP) [Relative time] 1.3 {INR} Normal [facility] Comment on above: Performed By: #### L 100.0100, L300.3900, L500.2500 #### [facility] [place], [address] PT Coag (PPP) [Time] 16.3 s High 11.7-14.9 [facility] Comment on above: Performed By: #### L 100.0100, L300.3900, L500.2500 #### [facility] [address] [place], [address] RBC Auto (Bld) [#/Vol]Ordere d By: Erasmo House on 08-24-2024 RBC (Bld) [#/Vol] 3.58 10*6/uL Low 4.2-5.4 [facility] Serum creatinine measurement (mass/volume)Ordered By: Erasmo House on 08-24-2024 Creatinine [Mass/Vol] 0.65 mg/dL Low 0.70-1.20 [facility] Serum glucose measurement (m ass/volume)Ordered By: Erasmo House on 08-24-2024 Glucose [Mass/Vol] 90 mg/dL 70-99 [facility] Serum or plasma calcium monica urement (mass/volume)Ordered By: Erasmo House on 08-24-2024 Calcium [Mass/Vol] 9.0 mg/dL 7.6-11.0 [facility] Serum or plasma urea nitroge n measurement (mass/volume)Ordered By: Erasmo House on 08-24-2024 Urea nitrogen [Mass/Vol] 15 mg/dL 4-19 [facility] Sodium levelOrdered By: Iwona House on 08-24-2024 Sodium [Moles/Vol] 140 mmol/L 133-145 [facility] White blood cell (WBC) count Ordered By: Erasmo House on 08-24-2024 WBC (Bld) [#/Vol] 5.4 10*3/uL 4.4-11.0 [facility] Absolute lymphocyte countOrd ered By: Ron Mariscal on 08-23-2024 Lymphocytes Auto (Unsp spec) [#/Vol] 0.64 10*3/uL Low 0.83-4.51 [facility] Absolute neutrophil countOrd ered By: Ron Mariscal on 08-23-2024 Neutrophils (Bld) [#/Vol] 6.5 10*3/uL 2.0-7.7 [facility] Anion gap in Serum or Plasma Ordered By: Ron Mariscal on 08-23-2024 Anion gap [Moles/Vol] 14 mmol/L 5-15 [facility] Automated lymphocyte count a s percentage of total leukocytesOrdered By: Ron Mariscal on 08-23-2024 Lymphocytes/100 WBC Auto (Unsp spec) 8.1 % Low 19-41 [facility] BUN/creatinine ratioOrdered By: Ron Mariscal on 08-23-2024 Urea nitrogen/Creatinine [Mass ratio] 34.8 mg/mg High 10-20 [facility] Basic Metabolic Profile (BMP )on 08-23-2024 BUN/CRE 34.8 RATIO High - [facility] Comment on above: Performed By: #### L 100.0100, L500.2500 #### [facility] [address] [place], [address] Calcium [Mass/Vol] 9.2 mg/dL Normal 7.6-11.0 [facility] Comment on above: Performed By: #### L 100.0100, L500.2500 #### [facility] [address] [place], [address] Chloride [Moles/Vol] 104 mmol/L Normal 98-108 [facility] Comment on above: Performed By: #### L 100.0100, L500.2500 #### [facility] [address] [place], [address] CO2 [Moles/Vol] 22.1 mmol/L Normal 21.0-32.0 [facility] Comment on above: Performed By: #### L 100.0100, L500.2500 #### [facility] [address] [place], [address] Creatinine [Mass/Vol] 0.63 mg/dL Low 0.70-1.20 [facility] Comment on above: Performed By: #### L 100.0100, L500.2500 #### [facility] [address] [place], [address] ECRCL 48.72 ml/min Low 50-250 [facility] Comment on above: Performed By: #### L 100.0100, L500.2500 #### [facility] [address] [place], [address] GAP 14 Normal 5-15 [facility] Comment on above: Performed By: #### L 100.0100, L500.2500 #### [facility] [address] [place], [address] GFR/1.73 sq M.predicted among non-blacks MDRD (S/P/Bld) [Vol rate/Area] 91 mL/min/{1.73_m2} Normal >60 [facility] Comment on above: Result Comment: mL/m in/1.73m2 CKD-EPI Creatinine Equation (2020) Performed By: #### L 100.0100, L500.2500 #### [facility] [address] [place], [address] Glucose [Mass/Vol] 116 mg/dL High 70-99 [facility] Comment on above: Performed By: #### L 100.0100, L500.2500 #### [facility] [address] [place], [address] Potassium [Moles/Vol] 3.9 mmol/L Normal 3.3-5.1 [facility] Comment on above: Performed By: #### L 100.0100, L500.2500 #### [facility] [address] [place], [address] Sodium [Moles/Vol] 140 mmol/L Normal 133-145 [facility] Comment on above: Performed By: #### L 100.0100, L500.2500 #### [facility] [address] [place], [address] Urea nitrogen [Mass/Vol] 22 mg/dL High 4-19 [facility] Comment on above: Performed By: #### L 100.0100, L500.2500 #### [facility] [address] [place], [address] Basophil percentageOrdered B y: Ron Mariscal on 08-23-2024 Basophils/100 WBC (Bld) 0.4 % 0-1 [facility] Brain/Head without Contrasto n 08-23-2024 Brain/Head without Contrast [facility] Imaging Services [address] [place] [address] Brain/Head without Contrast MR#: [id number] Acct: [id number] Name: HAYDEE BUSTAMANTE Rep #: [id number] : 1945 F 79 From: Jasmyn Herrera MD PCP: Dr. Claudine Durán MD Status: REG ER Study: Brain/Head without Contrast Date of Exam: 07/13 Exam# [id number] Ordering Dr: Ron Mariscal MD EXAM: CT [...] evaluation with MRI is recommended. Reading Location: [facility] CC: Dr. Ron Mariscal MD; Dr. 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, [address] Absolute Neut 6.5 X10 3/uL Normal 2.0-7.7 [facility] Comment on above: Performed By: #### L 100.0100, L500.2500 #### [facility] [address] [place], [address] Basophils/100 WBC (Bld) 0.4 % Normal 0-1 [facility] Comment on above: Performed By: #### L 100.0100, L500.2500 #### [facility] [address] [place], [address] Eosinophils/100 WBC (Bld) 0.1 % Normal 0-5 [facility] Comment on above: Performed By: #### L 100.0100, L500.2500 #### [facility] [address] [place], [address] Erythrocyte distribution width (RBC) [Ratio] 17.0 % High 11.6-14.6 [facility] Comment on above: Performed By: #### L 100.0100, L500.2500 #### [facility] [address] [place], [address] Hematocrit (Bld) [Volume fraction] 33.9 % Low 37-47 [facility] Comment on above: Performed By: #### L 100.0100, L500.2500 #### [facility] [address] [place], [address] Hemoglobin (Bld) [Mass/Vol] 11.3 g/dL Low 12.0-15.0 [facility] Comment on above: Performed By: #### L 100.0100, L500.2500 #### [facility] [address] [place], [address] IG% 0.500 Normal 0.0-0.9 [facility] Comment on above: Result Comment: IG% - Immature Granulocytes (promyelocytes, myelocytes and metamyelocytes) > 1% indicates that a LEFT SHIFT is Present. Performed By: #### L 100.0100, L500.2500 #### [facility] [address] [place], [address] Lymphocytes/100 WBC (Bld) 8.1 % Low 19-41 [facility] Comment on above: Performed By: #### L 100.0100, L500.2500 #### [facility] [address] [place], [address] MCH (RBC) [Entitic mass] 32.1 pg High 27.0-32.0 [facility] Comment on above: Performed By: #### L 100.0100, L500.2500 #### [facility] [address] [place], [address] MCHC (RBC) [Mass/Vol] 33.3 g/dL Normal 32-36 [facility] Comment on above: Performed By: #### L 100.0100, L500.2500 #### [facility] [address] [place], [address] MCV (RBC) [Entitic vol] 96.3 fL Normal 81-99 [facility] Comment on above: Performed By: #### L 100.0100, L500.2500 #### [facility] [address] [place], [address] Monocytes/100 WBC (Bld) 8.6 % Normal 0-10 [facility] Comment on above: Performed By: #### L 100.0100, L500.2500 #### [facility] [address] [place], [address] Neutrophils/100 WBC (Bld) 82.3 % High 47-70 [facility] Comment on above: Performed By: #### L 100.0100, L500.2500 #### [facility] [address] [place], [address] Nucleated RBC (Bld) [#/Vol] 0 10*3/uL Normal 0-5 [facility] Comment on above: Performed By: #### L 100.0100, L500.2500 #### [facility] [address] [place], [address] Platelet mean volume (Bld) [Entitic vol] 10.9 fL Normal 6.2-12.0 [facility] Comment on above: Performed By: #### L 100.0100, L500.2500 #### [facility] [address] [place], [address] Platelets (Bld) [#/Vol] 182 10*3/uL Normal 150-450 [facility] Comment on above: Performed By: #### L 100.0100, L500.2500 #### [facility] [address] [place], [address] RBC (Bld) [#/Vol] 3.52 10*6/uL Low 4.2-5.4 [facility] Comment on above: Performed By: #### L 100.0100, L500.2500 #### [facility] [address] [place], [address] RDW SD 58.6 fl High 35.1-43.9 [facility] Comment on above: Performed By: #### L 100.0100, L500.2500 #### [facility] [address] [place], [address] WBC (Bld) [#/Vol] 7.9 10*3/uL Normal 4.4-11.0 [facility] Comment on above: Performed By: #### L 100.0100, L500.2500 #### [facility] [address] [place], [place], [address] CPK Total, Creatine Kinaseon 08-23-2024 CPK TOTAL 128 U/L Normal 24-195 [facility] Comment on above: Performed By: #### L 501.3620 #### [facility] [address] [place], [address] Carbon dioxide, total [Moles /volume] in Central venous bloodOrdered By: Ron Mariscal on 08-23-2024 CO2 [Moles/Vol] 22.1 mmol/L 21.0-32.0 [facility] Chloride assayOrdered By: Kaitlynn Mariscal on 08-23-2024 Chloride [Moles/Vol] 104 mmol/L 98-108 [facility] Consultation - Orthopedicson 08-23-2024 Consultation - Orthopedics [facility] Medical Records Department [address] [place] [address] Consultation - Orthopedics 08/23/24 1354 MR#: [id number] Acct: [id number] Name: HAYDEE BUSTAMANTE Rep #: [id number] : 1945 79 From: Burak Amanda MD PCP: Dr. Claudine Durán MD Status:ADM ADAIR [facility] Consult Data Date of Consult: 08/23/24 [...] was admitted for placement and likely rehabilitation. [facility] Medical History Hypertension GERD (gastroesophageal reflux disease) [...] DAILY supplement 4 10/01/23 History tablet) vitamins A,C,S-ugpu-pafeew 2,148 2 tab PO BID eye health [...] Rx (Voltaren Arthritis Pain) #100 grams omega 5-oml-csi-fish oil 1,200 mg 1 cap PO DAILY [...] 06/20/24 10:10 (more content not included)... Normal [facility] Emergency Department Summary on 08-23-2024 Emergency Department Summary [facility] Medical Records Department [address] [place] [address] Emergency Department Summary 08/23/24 MR#: [id number] Acct: [id number] Name: HAYDEE BUSTAMANTE Rep #: [id number] : 1945 79 From: Ron Mariscal MD [...] at any point in time or syncope. Xytlv-qkyd-wctyvqkf. Lives by herself. 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 She states this morning she laid [...] to if her wrist was not injured [facility] Medical History Hypertension GERD (gastroesophageal reflux disease) [...] DAILY supplement 4 10/01/23 History tablet) vitamins A,C,O-drqy-gxgves 2,148 2 tab PO BID eye health [...] tabs Instructions: ON HOLD FOR COLONOSCOPY omega 9-ynp-btn-fish oil 1,200 mg 1 cap PO DAILY [...] Severe Anaph (more content not included)... Normal [facility] Eosinophil percentageOrdered By: Ron Mariscal on 08-23-2024 Eosinophils/100 WBC (Bld) 0.1 % 0-5 [facility] Erythrocyte distribution wid th ratioOrdered By: Ron Mariscal on 08-23-2024 Erythrocyte distribution width (RBC) [Ratio] 17.0 % High 11.6-14.6 [facility] Erythrocyte distribution wid th standard deviationOrdered By: Ron Loida on 08-23-2024 Erythrocyte distribution width (RBC) [Ratio] 58.6 fl High 35.1-43.9 [facility] Glomerular filtration rate ( GFR) estimation/1.73 sq m using serum, plasma, or whole bOrdered By: Ron Mariscal on 08-23-2024 GFR/1.73 sq M.predicted among non-blacks MDRD (S/P/Bld) [Vol rate/Area] 91 mL/min/{1.73_m2} >60 [facility] Comment on above: mL/min/1.73m2 CKD-EP I Creatinine Equation (2020) H AND P Exam - Hospitaliston 08-23-2024 H&P Exam - Hospitalist [facility] Medical Records Department [address] [place] [address] H P Exam - Hospitalist 08/23/24 1023 MR#: [id number] Acct: [id number] Name: HAYDEE BUSTAMANTE Rep #: [id number] : 1945 79 From: Erasmo House MD PCP: Dr. Claudine Durán MD Status:ADM ADAIR Location: [facility] MY137-1 HPI - General General Date of Admission: [...] x-ray done in the ED were reviewed. [facility] Medical History Hypertension GERD (gastroesophageal reflux disease) [...] DAILY supplement 4 10/01/23 History tablet) vitamins A,C,Y-djza-nvrrjl 2,148 2 tab PO BID eye health [...] Rx (Voltaren Arthritis Pain) #100 grams omega 6-akw-nis-fish oil 1,200 mg 1 cap PO DAILY [...] smoker alcoho (more content not included)... Normal [facility] Hematocrit Auto (Bld) [Volum e fraction]Ordered By: Ron Mariscal on 08-23-2024 Hematocrit (Bld) [Volume fraction] 33.9 % Low 37-47 [facility] Hemoglobin measurementOrdere d By: Ron Mariscal on 08-23-2024 Hemoglobin (Bld) [Mass/Vol] 11.3 g/dL Low 12.0-15.0 [facility] Immature granulocytes/100 WB C Auto (Bld)Ordered By: Ron Mariscal on 08-23-2024 Immature granulocytes/100 WBC (Bld) 0.500 % 0.0-0.9 [facility] Comment on above: IG% - Immature Granu locytes (promyelocytes, myelocytes and metamyelocytes) > 1% indicates that a LEFT SHIFT is Present. International normalized rat io (INR) calculationOrdered By: Ron Mariscal on 08-23-2024 INR Coag (Bld) [Relative time] 1.2 {INR} [facility] MCV (mean corpuscular volume ) determinationOrdered By: Ron Mariscal on 08-23-2024 MCV (RBC) [Entitic vol] 96.3 fL 81-99 [facility] Magnesiumon 08-23-2024 Magnesium [Mass/Vol] 2.1 mg/dL Normal 1.5-2.2 [facility] Comment on above: Performed By: #### L 501.5200 ####[facility] [address] [place], [place], [address] Magnesium measurement (mass/ volume)Ordered By: Erasmo House on 08-23-2024 Magnesium (Unsp spec) [Mass/Vol] 2.1 mg/dL 1.5-2.2 [facility] Mean corpuscular hemoglobin (MCH) determinationOrdered By: Ron Mariscal on 08-23-2024 MCH (RBC) [Entitic mass] 32.1 pg High 27.0-32.0 [facility] Mean corpuscular hemoglobin concentration (MCHC) determinationOrdered By: Ron Mariscal on 08-23-2024 MCHC (RBC) [Mass/Vol] 33.3 g/dL 32-36 [facility] Mean platelet volume determi nationOrdered By: Ron Mariscal on 08-23-2024 Platelet mean volume (Bld) [Entitic vol] 10.9 fL 6.2-12.0 [facility] Monocyte percentageOrdered B y: Ron Mariscal on 08-23-2024 Monocytes/100 WBC (Bld) 8.6 % 0-10 [facility] Neutrophil percentageOrdered By: Ron Mariscal on 08-23-2024 Neutrophils/100 WBC (Bld) 82.3 % High 47-70 [facility] Nucleated red blood cell per centageOrdered By: Ron Mariscal on 08-23-2024 Nucleated RBC/100 WBC (Bld) [Ratio] 0 % 0-5 [facility] Platelet countOrdered By: Kaitlynn Mariscal on 08-23-2024 Platelets (Bld) [#/Vol] 182 10*3/uL 150-450 [facility] Potassium measurement (mass/ volume)Ordered By: Ron Mariscal on 08-23-2024 Potassium (Unsp spec) [Mass/Vol] 3.9 mmol/L 3.3-5.1 [facility] Prothrombin Time w/INRon INR Coag (PPP) [Relative time] 1.2 {INR} Normal [facility] Comment on above: Performed By: #### L 714.9843 ####[facility] [address] [place], [place], [address] PT Coag (PPP) [Time] 15.5 s High 11.7-14.9 [facility] Comment on above: Performed By: #### L 300.3900 ####[facility] [address] [place], [place], [address] Prothrombin timeOrdered By: Ron Mariscal on 08-23-2024 PT Coag (PPP) [Time] 15.5 s High 11.7-14.9 [facility] RBC Auto (Bld) [#/Vol]Ordere d By: Ron Mariscal on 08-23-2024 RBC (Bld) [#/Vol] 3.52 10*6/uL Low 4.2-5.4 [facility] Serum creatinine measurement (mass/volume)Ordered By: Ron Mariscal on 08-23-2024 Creatinine [Mass/Vol] 0.63 mg/dL Low 0.70-1.20 [facility] Serum glucose measurement (m ass/volume)Ordered By: Ron Mariscal on 08-23-2024 Glucose [Mass/Vol] 116 mg/dL High 70-99 [facility] Serum or plasma calcium monica urement (mass/volume)Ordered By: Ron Mariscal on 08-23-2024 Calcium [Mass/Vol] 9.2 mg/dL 7.6-11.0 [facility] Serum or plasma creatine kin ase activityOrdered By: Ron Mariscal on 08-23-2024 CK [Catalytic activity/Vol] 128 U/L 24-195 [facility] Serum or plasma urea nitroge n measurement (mass/volume)Ordered By: Ron Mariscal on 08-23-2024 Urea nitrogen [Mass/Vol] 22 mg/dL High 4-19 [facility] Sodium levelOrdered By: Cordell Mariscal on 08-23-2024 Sodium [Moles/Vol] 140 mmol/L 133-145 [facility] White blood cell (WBC) count Ordered By: Ron Mariscal on 08-23-2024 WBC (Bld) [#/Vol] 7.9 10*3/uL 4.4-11.0 [facility] Wrist min 3 Viewson 08-24-19 Wrist min 3 Views [facility] Imaging Services [address] [place] [address] Wrist min 3 Views MR#: [id number] Acct: [id number] Name: HAYDEE BUSTAMANTE Rep #: [id number] : 1945 F 79 From: Jasmyn Herrera MD PCP: Dr. Claudine Durán MD Status: REG ER Study: Wrist min 3 Views Date of Exam: 08/23/24 Exam# [id number] Ordering Dr: Ron Mariscal MD EXAM: XR [...] distal radius with intra-articular extension. Reading Location: [facility] [place] CC: Dr. Ron Mariscal MD; Dr. Claudine Durán MD Food Production Supervisor: Signed Normal [facility] No Panel InformationOrdered By: Santos Guillory on 08-21-2024 [facility] Cardiac Rehab [address] [place] [address] CR - Individual Treatment Plan MR#: [id number] Acct: [id number] Name: HAYDEE BUSTAMANTE Rep #:[id number] : 1945 79 From: Santos Rubalcava BS, [...] BMI: 23.3 Core - 30-Day Assessment Hypertension [place] [employer] Hypertension Guidelines Reassessment Notes & Comments:: Pt's BP's are within AHA normal limits on some days Core - Final Assessment Hypertension [place] [employer] Hypertension Guidelines Reassessment Notes & Comments:: Pt (more content not included)... [facility] No Panel InformationOrdered By: Santos Guillory on 07-24-2024 [facility] Cardiac Rehab [address] [place] [address] [place] [address] CR - Individual Treatment Plan MR#: [id number] Acct: [id number] Name: HAYDEE BUSTAMANTE Rep #:[id number] : 1945 79 From: Santos Rubalcava BS, RVT PCP: Dr. Claudine Durán MD DOS: 06/13 Exercise - Initial Assessment Physician Prescribed Exercise Modalities: Treadmill, SciFit Stepper and SciFit Pro-II Ergometer Nutrition - Initial Assessment Weight Mgt (Other Care) Height: 5 ft 3 in Weight:: 133 lb BMI: 23.6 Core - Initial Assessment Hypertension Resting Blood Pressure:: 132/70 [employer] Hypertension Guidelines Psychosocial - Initial [...] modify LDL go (more content not included)... [facility] No Panel InformationOrdered By: Santos Guillory on 06-27-2024 [facility] Card[facility] Rehab [address] [place] [address] CR - Individual Treatment Plan MR#: [id number] Acct: [id number] Name: HAYDEE BUSTAMANTE Rep #:[id number] : 1945 79 From: Santos Rubalcava BS, [...] Session 10,Verbalizes symptom (more content not included)... [facility] 12 Lead EKG performed by [facility] on 06-20-2024 12 Lead EKG performed by [facility] [address] [place] [address] 12 Lead EKG performed by [facility] 06/20/24 1547 MR#: [id number] Acct: [id number] Name: HAYDEE BUSTAMANTE Rep #: [id number] : 1945 79 From: Diaz Puckett MD Attending Dr: Dr. Diaz Puckett MD Status: DE P AMB Ordering Dr: Diaz Puckett MD Date: 06/20/24 Location: [facility] Sex: F C Admitted: [facility]/12 Lead EKG performed by [facility] ECG Report Interpretation S inus Rhythm - occasional PAC # PACs = 1.-Combined atrial enlargement. Low voltage -possible pulmonary disease. ABNORMAL Electronically signed on 06/20/2024 at 12:[address] Diaz Puckett Gamblino Version [id number] 06/20/24 1229 Date Diaz Puckett MD CC: Dr. Claudine Durán MD Date Dictated: 06/20/24 154 Date Transcribed: 06/20/241546 Food Production Supervisor: Signed Normal [facility] Cardiology Visit Reporton Cardiology Visit Report [facility] [address] [place] [address] OFFICE VISIT Date of Service: 06/20/24 MR#: [id number] Acct: [id number] Name: HAYDEE BUSTAMANTE Rep #: [id number] : 1945 Provider: Dr. Diaz dickson MD Age/Sex: 79/F Location: [facility] Status: Signed HPI HPI History of Present Illness Details: Patient is a 79-year-old white female comes in today for new patient visit. Patient is routinely cared for in the [facility] system where she had her TAVR April 2024. Patient carries a history of critical aortic stenosis status post TAVR April 2024 at [facility] follow-up echo showed a peak [...] histoplasmosis has been treated twice by Dr. eGno Hart. Patient reports she has been doing fairly well in her home environment she has markedly recovered from her TAVR and had been in outpatient rehab here at [facility] which she is tolerating without incident. The patient was not aware of her SBE prophylaxis needs given her bioprosthetic valve. She is allergic to penicillin but has not ever taken clindamycin to her knowledge. The patient is scheduled to follow-up with the [facility] in the next few weeks. She is wishing to transfer her care primarily to the [place] [facility] once she is released from the [facility] in their TAVR program. ECG in [...] Intake Visit Reasons: AORTICE VALVE STENOSIS (SWANSON) Hand Method Lasting Machine Operator Required: No Accompanied by: Self Is patient in pain?: No Allergies Penicillins Allergy (Severe, Verified 06/20/24 10:10) Anaphylaxis Medications ???Medication ???Instructions ???Recorded ???Confirmed ???Type multivitamin (Daily Multi-Vitamin 1 tab PO DAILY supplement 4 06/20/24 History tablet) vitamins A,C,T-anit-ebusqm 2,148 2 tab PO BID eye health [...] tabs Instructions: ON HOLD FOR COLONOSCOPY omega 3-ehs-gpq-fish oil 1,200 mg 1 cap PO DAILY [...] you fallen in the past year?: Yes [facility] Medical History Hypertension (more content not included)... Normal [facility] CR - History AND Physicalon 05-28-2024 CR - History & Physical [facility] Cardiac Rehab [address] [place] [address] CR - History Physical MR#: [id number] Acct: [id number] Name: HAYDEE BUSTAMANTE Rep #: [id number] : 1945 78 From: Santos Rubalcava BS, [...] tab PO DAILY supplement 4 tablet) vitamins A,C,W-cibg-xdsldn 2,148 2 tab PO BID eye health [...] tabs Instructions: ON HOLD FOR COLONOSCOPY omega 3-trf-xqy-fish oil 1,200 mg 1 cap PO DAILY [...] Do you have a Healthcare Power of Coiled Tubing Supervisor?: Yes Living Will: Yes Advance Directives Information [...] 100/54 P (more content not included)... Normal [facility] Cardiac rehabilitation evalu ation reportOrdered By: Santos Guillory on 05-28-[address] [facility] Cardiac Rehab [address] [place] [address] CR - History & Physical MR#: [id number] Acct: [id number] Name: HAYDEE BUSTAMANTE Rep #:[id number] : 1945 78 From: Santos Rubalcava BS, [...] PO DAILY suppl ement 03/19/23 tablet) vitamins A,C,S-mohp-xcoznk 2,148 2 tab PO BID eye heal [...] tiotropium bromide 2.5 2 puff inhalation DAILY 06/2 4/24 mcg/actuation mist for inhalation (Spiriva Respimat) diclofenac sodium 1 % topical gel 4 g topical BID PRN PRN knee pain 08/18/23 (Voltaren Arthritis Pain) #100 grams warfarin 5 mg tablet See Rx Instructions .Route 0 08/18/23 Held on 10/01/23. .COMPLEX #30 tabs Instructions: ON HOLD FOR COLONOSCOPY omega 9-psa-ozq-fish oil 1,200 mg 1 cap PO DAILY [...] Do you have a Healthcare Power of Coiled Tubing Supervisor?: Yes Living Will: Yes Advance Directives Information [...] for Smoking and (more content not included)... [facility] No Panel InformationOrdered By: Santos Guillory on 05-28-2024 [facility] Cardiac Rehab [address] [place] [address] CR - Individual Treatment Plan MR#: [id number] Acct: [id number] Name: HAYDEE BUSTAMANTE Rep #:[id number] : 1945 78 From: Santos Rubalcava BS, [...] Referral to Physical Therapy: No Referral to [facility] Case Management: No Fall Risk Assessed:: [...] comment below) Physician Prescribed Exercise Modalities: Nicolas Elkins-7, SciFit Stepper, SciFit Pro-II Ergometerand SciFit Lateral [place] Frequency: 3x/week for 12 weeks [36 sessions] [...] rehaband Other additional (more content not included)... [facility] XR Chest PA and Lateralon Radiology Study observation (narrative) [facility] IMPRESSION: See result. Food Production Supervisor: KRYSTAL Transcribe Date/Time: Apr 30 2024 11:46A Dictated by : ABIGAIL ODOM MD This examination was interpreted and the report reviewed and electronically signed by: ABIGAIL ODOM MD on Apr 30 2024 11:47AM [facility] DIVISION OF RADIOLOGY * * *Final [...] soft tissues: Unremarkable. DIVISION OF RADIOLOGY Provider, [facility] - 04/30/2024 * * *Final Report* * [...] soft tissues: Unremarkable. IMPRESSION IMPRESSION: See result. Food Production Supervisor: KRYSTAL Transcribe Date/Time: Apr 30 2024 11:46A Dictated by : ABIGAIL ODOM MD This examination was interpreted and the report reviewed and electronically signed by: ABIGALI ODOM MD on Apr 30 2024 11:47AM [facility] XR Chest PA and LateralOrder ed By: [facility] Provider on 04-30-2024 [facility] SPECT Heart for infarct W Tc -99m PYP IVOrdered By: [facility] Provider on 03-25-2024 Interpretation and review of laboratory results Abnormal [facility] Radiology Result ACTIONABLE Abnormal [facility] Comment on above: This report contains an [...] contact your provider for the next steps. [facility] SPECT Heart for infarct W Tc -99m PYP Komal 03-25-2024 * * *Final Report* * * DATE OF EXAM: Mar 25 2024 12:13PM [facility] 0847 - [place] CARDIAC AMYLOID SPECT/CT / PROCEDURE REASON: Nonrheumatic aortic valve stenosis * * * * Physician Interpretation * * * * [place] CTAC Report: [facility] Date of service: 03/25/2024 11:41:51 AM [...] radiotracer. See administered radiotracer and dose below. [facility] Date of service: 03/25/2024 11:41:51 AM Ordering [...] * * Final * * * RP Food Production Supervisor: BELEN Transcribe Date/Time: Mar 25 2024 11:41A Dictated by : ROB MARCELO MD This examination was interpreted and the report reviewed and electronically signed by: ROB MARCELO MD on Mar 25 2024 12:19PM [facility] DIVISION OF RADIOLOGY Provider, [facility] - 03/25/2024 * * *Final Report* * * DATE OF EXAM: Mar 25 2024 12:13PM [facility] 0847 - [place] CARDIAC AMYLOID SPECT/CT / PROCEDURE REASON: Nonrheumatic aortic valve stenosis * * * * Physician Interpretation * * * * [place] [facility] Report: [facility] Date of service: 03/25/2024 11:41:51 AM [...] See administered radiotracer and dose below. [facility] [place] Date of service: 03/25/2024 11:41:51 AM Ordering [...] * * Final * * * RP Food Production Supervisor: BELEN Transcrijoesph Date/Time: Mar 25 2024 11:41A Dictated by : ROB MARCELO MD This examination was interpreted and the report reviewed and electronically signed by: ROB MARCELO MD on Mar 25 2024 12:19PM EST [facility] Radiology Study observation (narrative) [facility] CREATININE, BLOOD (POC)on Creatinine [Mass/Vol] 0.60 mg/dL Abnormal 0.7 - 1.4 mg/dL [facility] eGFR (POCT) mL/min/1.7 3 m2 [facility] Interpretation and review of laboratory results Abnormal [facility] Location:Radiology [facility], [address] [place] [address], [address] [place] [address] POINT OF CARE [facility] CTA Abdominal vessels and Pe lvis [...] AORTIC DIMENSIONS: AORTIC ROOT: 3.5 cm measured fczuh-ps-eaebn STJ: 2.5 cm mid ASCENDING THORACIC AORTA: [...] lumbar spine. Anterolisthesis of L4 over L5 Principal Archaeologist (topogram) images: No additional findings. DIVISION OF RADIOLOGY Provider, [facility] - 03/21/2024 * * *Final Report* [...] AORTIC DIMENSIONS: AORTIC ROOT: 3.5 cm measured abrmx-vq-taqpl STJ: 2.5 cm mid ASCENDING THORACIC AORTA: [...] lumbar spine. Anterolisthesis of L4 over L5 Principal Archaeologist (topogram) images: (more content not included)... [facility] Radiology Study observation (narrative) [facility] CTA Chest vessels W contrast Komal 03-21-2024 [...] AORTIC DIMENSIONS: AORTIC ROOT: 3.5 cm measured kocpk-ju-oregs STJ: 2.5 cm mid ASCENDING THORACIC AORTA: [...] lumbar spine. Anterolisthesis of L4 over L5 Principal Archaeologist (topogram) images: No additional findings. DIVISION OF RADIOLOGY Provider, [facility] - 03/21/2024 * * *Final Report* [...] AORTIC DIMENSIONS: AORTIC ROOT: 3.5 cm measured bqoov-ir-pfigj STJ: 2.5 cm mid ASCENDING THORACIC AORTA: [...] lumbar spine. Anterolisthesis of L4 over L5 Principal Archaeologist (topogram) im (more content not included)... [facility] Radiology Study [facility] (narrative) [facility] No Panel Informationon 03-21 IMPRESSION: Aortic Annulus and valve anatomy as described above Normal thoracic and abdomiinal aorta.Atherosclerotic changes as in the body of the report.Minimum luminal diameter throughout: 7 mm Food Production Supervisor[facility] Transcribe Date/Time: Mar 21 2024 11:22A Dictated by : CALIXTO BLACKWOOD MD This examination was interpreted and the report reviewed and electronically signed by: CALIXTO BLACKWOOD MD on Mar 21 2024 12:53PM [facility] DIVISION OF RADIOLOGY No Panel InformationOrdered By: Ccf Provider on 03-21-2024 [facility] XR Chest PA and Lateralon IMPRESSION: See result Food Production Supervisor: [facility] Transcribe Date/Time: Mar 21 2024 12:02P Dictated by : JACKELINE SCHULER MD This examination was interpreted and the report reviewed and electronically signed by: JACKELINE SCHULER MD on Mar 21 2024 12:04PM [facility] DIVISION OF RADIOLOGY * * *Final [...] Decreased bone density DIVISION OF RADIOLOGY Provider, [facility] - 03/21/2024 * * *Final Report* [...] Decreased bone density IMPRESSION IMPRESSION: See result Food Production Supervisor: KRYSTAL Transcribe Date/Time: Mar 21 2024 12:02P Dictated by : JACKELINE SHCULER MD This examination was interpreted and the report reviewed and electronically signed by: JACKELINE SCHULER MD on Mar 21 2024 12:04PM EST [facility] Radiology Study observation (narrative) Christiane castañeda [facility] XR Chest PA and LateralOrder ed By: Ccf Provider on 03-21-2024 [facility] Davy 01-04-2024 BORIS Telephone (AKPRAD) HAYDEE BUSTAMANTE ([id number]) 1945 F T Date Time Provider Department [...] (FLONASE) 50 mcg/actuation nasal spray Use 1 Stephen in each nostril once daily. - pantoprazole DR (PROTONIX) 40 mg tablet Take 1 tablet by mouth once daily. 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 Problem List As Of Date 12/20 (more content not included)... Normal [facility] HISTOPLASMA AG URINEOrdered By: Cabrera Duggan on 12-21-2023 H. capsulatum Ag (U) [Mass/Vol] ng/mL NINF - 0.2 ng/mL [facility] H. capsulatum Ag IA Ql (U) Negative Negative [facility] Comment on above: Histoplasma galactom adilene antigen, urine test is used as an aid in diagnosing histoplasmosis. A negative result cannot rule out infection. Low positive results may at times be due to cross-reactivity with Blastomyces, Talaromyces marneffei, Paracoccidioides, and some Wendy species. Clinical radiological, and epidemiological correlation is required. Interpretation and review of laboratory results Normal [facility] ITRACONAZOLE BLOODOrdered By : Elvira Cronin on 12-21-2023 Hydroxyitraconazole 1.1 ug/mL [facility] Comment on above: Ranges are based on trough draw at steady-state concentration. Test performed by LC-MS/MS. Ranges are based off the Itraconazole trough levels alone, not combined with hydroxyitraconazole. Therapeutic: >1.0 ug/mL Prophylaxis: >0.4 ug/mL Toxic: >3.0 ug/mL (Toxic values will not be called) The therapeutic, prophylactic, and toxic ranges were based on the 2016 Infectious Disease Society of [place]'s (IDSA) Clinical Practice Guidelines for the Management of Aspergillosis and Candidiasis and consultation from [facility]'s Department of Infectious Disease. Reference ranges and high/low indicator flags are provided as general guidelines only. The treating physician must determine appropriate target levels/dosing based on the specific clinical situation. This test was developed, and its performance characteristics determined by the [facility] Department of Pathology and Laboratory Medicine. It has not been cleared or approved by the FDA. The [facility] Department of Pathology and Laboratory Medicine is regulated under CLIA as qualified to perform high-complexity testing. This test is used for clinical purposes. It should not be regarded as investigational or for research. Itraconazole 0.8 ug/mL 0.6 - 2.9 ug/mL [facility] Hepatic function 2000 panelo n 12-20-2023 Albumin [Mass/Vol] 3.7 g/dL Low 3.9 - 4.9 g/dL [facility] ALP [Catalytic activity/Vol] 95 U/L 34 - 123 U/L [facility] ALT [Catalytic activity/Vol] 19 U/L 7 - 38 U/L [facility] AST [Catalytic activity/Vol] 20 U/L 13 - 35 U/L [facility] Bilirubin [Mass/Vol] 0.6 mg/dL 0.2 - 1 .3 mg/dL [facility] Bilirubin.conjugated [Mass/Vol] 0.2 mg/dL High [facility]/dL [facility] Interpretation and review of laboratory results Abnormal [facility] Protein [Mass/Vol] 7.0 g/dL 6.3 - 8.0 g/dL [facility] CBC W Auto Differential pane l (Bld)on 10-11-2023 Basophils (Bld) [#/Vol] 0.05 10*3/uL [facility] Basophils/100 WBC (Bld) 0.5 % [facility] Differential cell count method Nom (Bld) Auto [facility] Eosinophils (Bld) [#/Vol] 0.12 10*3/uL [facility] Eosinophils/100 WBC (Bld) 1.2 % [facility] Erythrocyte distribution width (RBC) [Ratio] 16.8 % High 11.5 - 15.0 % [facility] Hematocrit (Bld) [Volume fraction] 32.4 % Low 36.0 - 46.0 % [facility] Hemoglobin (Bld) [Mass/Vol] 10.1 g/dL Low 11.5 - 15.5 g/dL [facility] Immature granulocytes (Bld) [#/Vol] 0.05 10*3/uL [facility] Immature granulocytes/100 WBC (Bld) 0.5 % [facility] Interpretation and review of laboratory results Abnormal [facility] Lymphocytes (Bld) [#/Vol] 1.31 10*3/uL [facility] Lymphocytes/100 WBC (Bld) 13.3 % [facility] MCH (RBC) [Entitic mass] 26.9 pg 26.0 - 34.0 pg [facility] MCHC (RBC) [Mass/Vol] 31.2 g/dL 30.5 - 36.0 g/dL [facility] MCV (RBC) [Entitic vol] 86.4 fL 80.0 - 100.0 fL [facility] Monocytes (Bld) [#/Vol] 1.00 10*3/uL High NINF [facility] Monocytes/100 WBC (Bld) 10.2 % [facility] Neutrophils (Bld) [#/Vol] 7.32 10*3/uL [facility] Neutrophils/100 WBC (Bld) 74.3 % [facility] Nucleated RBC (Bld) [#/Vol] NINF [facility] Nucleated RBC/100 WBC (Bld) [Ratio] 0.0 % /100 WBC [facility] Platelet mean volume (Bld) [Entitic vol] 11.6 fL 9.0 - 12.7 fL [facility] Platelets (Bld) [#/Vol] 349 10*3/uL [facility] RBC (Bld) [#/Vol] 3.75 10*6/uL Low 3.90 - 5.20 m/uL [facility] WBC (Bld) [#/Vol] 9.85 10*3/uL [facility] Comprehensive metabolic 2000 panelon 10-11-2023 Albumin [Mass/Vol] 3.9 g/dL 3.9 - 4.9 g/dL [facility] ALP [Catalytic activity/Vol] 111 U/L 34 - 123 U/L [facility] ALT [Catalytic activity/Vol] 22 U/L 7 - 38 U/L [facility] Anion gap [Moles/Vol] 11 mmol/L 8 - 15 mmol/L [facility] AST [Catalytic activity/Vol] 23 U/L 13 - 35 U/L [facility] Bilirubin [Mass/Vol] 0.3 mg/dL 0.2 - 1 .3 mg/dL [facility] Calcium [Mass/Vol] 9.4 mg/dL 8.5 - 10. 2 mg/dL [facility] Chloride [Moles/Vol] 99 mmol/L 98 - 10 7 mmol/L [facility] CO2 [Moles/Vol] 24 mmol/L 22 - 30 mmol/L [facility] Creatinine [Mass/Vol] 0.59 mg/dL 0.58 - 0.96 mg/dL [facility] GFR/1.73 sq M.predicted among non-blacks MDRD (S/P/Bld) [Vol rate/Area] 94 mL/min/{1.73_m2} - PINF [facility] Comment on above: Estimated Glomerular Filtration [...] [Mass/Vol] 76 mg/dL 74 - 99 mg/dL [facility] Comment on above: The [place] Diabete s Association (ADA) provides guidance for [...] Standards of Medical Care in Diabetes 2016, [place] Diabetes Association. Diabetes Care. 2016.39(Suppl 1). Interpretation and review of laboratory results Abnormal [facility] Potassium [Moles/Vol] 5.1 mmol/L 3.7 - 5.1 mmol/L [facility] Protein [Mass/Vol] 7.6 g/dL 6.3 - 8.0 g/dL [facility] Sodium [Moles/Vol] 134 mmol/L Low 136 - 144 mmol/L [facility] Urea nitrogen [Mass/Vol] 26 mg/dL High 7 - 21 mg/dL [facility] HISTOPLASMA AB CFon 09-02-19 24 H. capsulatum mycelial phase Ab CF (S) [Titer] <1:8 [facility] Comment on above: INTERPRETIVE INFORMA TION: Histoplasma Mycelia Antibodies by CF A titer of 1:8 or greater is generally considered presumptive evidence of histoplasmosis. A titer of 1:32 or greater or rising titers indicate strong presumptive evidence of histoplasmosis. Cross reactions, usually at lower titers, may occur with other fungal diseases. H. capsulatum yeast phase Ab CF (S) [Titer] <1:8 [facility] Comment on above: INTERPRETIVE INFORMA TION: Histoplasma Yeast Antibodies by CF A titer of 1:8 or greater is generally considered presumptive evidence of histoplasmosis. A titer of 1:32 or greater or rising titers indicate strong presumptive evidence of histoplasmosis. Cross reactions, usually at lower titers, may occur with other fungal diseases. Performed By: [employer] [address] [place] [id number] Nurse Assistant: Ernie Issa MD, PhD CLIA Number: [id number] [facility] HISTOPLASMA AG URINEOrdered By: Maricarmen Call on 08-31-2023 H. capsulatum Ag (U) [Mass/Vol] 0.4 ng/mL High NINF - 0.2 ng/mL [facility] H. capsulatum Ag IA Ql (U) Positive Abnormal Negative [facility] Comment on above: Histoplasma galactom adilene antigen, urine test is used as an aid in diagnosing histoplasmosis. A negative result cannot rule out infection. Low positive results may at times be due to cross-reactivity with Blastomyces, Talaromyces marneffei, Paracoccidioides, and some Wendy species. Clinical radiological, and epidemiological correlation is required. Interpretation and review of laboratory results Abnormal [facility] ITRACONAZOLE BLOODOrdered By : Elvira Cronin on 08-31-2023 Hydroxyitraconazole 2.4 ug/mL [facility] Comment on above: Ranges are based [...] of Aspergillosis and Candidiasis and consultation from [facility]'s Department of Infectious Disease. Reference ranges and high/low indicator flags are provided as general guidelines only. The treating physician must determine appropriate target levels/dosing based on the specific clinical situation. This test was developed and its performance characteristics determined by [facility]'s [facility] It has not been cleared or approved by the FDA. [facility] is regulated under CLIA as qualified to perform high-complexity testing. This test is used for clinical purposes. It should not be regarded as investigational or for research. Itraconazole 1.3 ug/mL 0.6 - 2.9 ug/mL [facility] CNOVon 08-27-2023 CNOV Office Visit (CARMED ) HAYDEE BUSTAMANTE ([id number]) 1945 [facility] Date Time Provider Department 08/27/23 8:20 AM WILLIAM MESSINA During your visit today, we recorded the following information about you: Pulse Blood pressure Weight Height 81/minute 116/68 58.1 kg 1.6 m William Messina DO 08/27/2023 2:47 PM Signed [facility] SE[facility]IOLOG[facility] OUTPATIENT VISIT DATE August 27, 2023 PRIMARY CARE PHYSICIAN: Claudine Durán [address] [place] [address] HISTORY OF PRESENT ILLNESS: Ms. Bustamante is [...] 116/68 Pulse 81 Ht 160 cm (5' 3) Wt 58.1 kg (128 lb) SpO2 99% [...] Bone marrow involvement with histoplasmosis Bronchiectasis ([facility]) COPD (chronic obstructive pulmonary disease) ([facility]) Disseminated histoplasmosis Colitis, immunosuppression, 01/2018. Diverticulosis of colon (without mention of hemorrhage) Diverticulosis DVT, recurrent, lower extremity, acute ([facility]) 12/10/2014 Esophageal reflux Hiatal hernia 02/25/2018 Hypertension Lung nodule Personal history of unspecified urinary disorder Rheumatoid arthritis involving multiple sites with positive rheumatoid factor ([facility]) 03/07/2015 Dr. Hurley ([facility]) (more content not included)... [facility] 08-27-2023 [facility] Telephone (CARMED) HAYDEE BUSTAMANTE ([id number]) 1945 F [facility] Date Time Provider Department 08/27/23 WILLIAM MESSINA [...] Hives Date Reviewed: 08/27/2023 Reviewed by: William Messina, DO - Fully Assessed Reason for Visit: [...] (FLONASE) 50 mcg/actuation nasal spray Use 1 Stephen in each nostril once daily. - pantoprazole DR (PROTONIX) 40 mg tablet Take 1 tablet by mouth once daily. 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 Normal [facility] CBC W Auto Differential pane l (Bld)on 08-22-2023 Basophils (Bld) [#/Vol] 0.04 10*3/uL [facility] Basophils/100 WBC (Bld) 0.5 % [facility] Differential cell count method Nom (Bld) Auto [facility] Eosinophils (Bld) [#/Vol] 0.08 10*3/uL [facility] Eosinophils/100 WBC (Bld) 1.0 % [facility] Erythrocyte distribution width (RBC) [Ratio] 17.4 % High 11.5 - 15.0 % [facility] Hematocrit (Bld) [Volume fraction] 28.5 % Low 36.0 - 46.0 % [facility] Hemoglobin (Bld) [Mass/Vol] 9.1 g/dL Low 11.5 - 15.5 g/dL [facility] Immature granulocytes (Bld) [#/Vol] 0.04 10*3/uL [facility] Immature granulocytes/100 WBC (Bld) 0.5 % [facility] Interpretation and review of laboratory results Abnormal [facility] Lymphocytes (Bld) [#/Vol] 0.93 10*3/uL Low [facility] Lymphocytes/100 WBC (Bld) 11.6 % [facility] MCH (RBC) [Entitic mass] 29.0 pg 26.0 - 34.0 pg [facility] MCHC (RBC) [Mass/Vol] 31.9 g/dL 30.5 - 36.0 g/dL [facility] MCV (RBC) [Entitic vol] 90.8 fL 80.0 - 100.0 fL [facility] Monocytes (Bld) [#/Vol] 0.72 10*3/uL [facility] Monocytes/100 WBC (Bld) 9.0 % C [facility] Neutrophils (Bld) [#/Vol] 6.19 10*3/uL [facility] Neutrophils/100 WBC (Bld) 77.4 % [facility] Nucleated RBC (Bld) [#/Vol] NINF [facility] Nucleated RBC/100 WBC (Bld) [Ratio] 0.0 % /100 WBC [facility] Platelet mean volume (Bld) [Entitic vol] 10.8 fL 9.0 - 12.7 fL [facility] Platelets (Bld) [#/Vol] 293 10*3/uL [facility] RBC (Bld) [#/Vol] 3.14 10*6/uL Low 3.90 - 5.20 m/uL [facility] WBC (Bld) [#/Vol] 8.00 10*3/uL [facility] Comprehensive metabolic 2000 panelOrdered By: Adri Cabrera on 08-22-2023 Albumin [Mass/Vol] 3.2 g/dL Low 3.9 - 4.9 g/dL [facility] ALP [Catalytic activity/Vol] 97 U/L 34 - 123 U/L [facility] ALT [Catalytic activity/Vol] 20 U/L 7 - 38 U/L [facility] Anion gap [Moles/Vol] 10 mmol/L 8 - 15 mmol/L [facility] AST [Catalytic activity/Vol] 25 U/L 13 - 35 U/L [facility] Bilirubin [Mass/Vol] 0.4 mg/dL 0.2 - 1 .3 mg/dL [facility] Calcium [Mass/Vol] 8.5 mg/dL 8.5 - 10. 2 mg/dL [facility] Chloride [Moles/Vol] 103 mmol/L 98 - 10 7 mmol/L [facility] CO2 [Moles/Vol] 26 mmol/L 22 - 30 mmol/L [facility] Creatinine [Mass/Vol] 0.55 mg/dL Low 0.58 - 0.96 mg/dL [facility] GFR/1.73 sq M.predicted among non-blacks MDRD (S/P/Bld) [Vol rate/Area] 95 mL/min/{1.73_m2} - PINF [facility] Comment on above: Estimated Glomerular Filtration [...] [Mass/Vol] 82 mg/dL 74 - 99 mg/dL [facility] Comment on above: The [place] Diabete s Association (ADA) provides guidance for [...] Standards of Medical Care in Diabetes 2016, [place] Diabetes Association. Diabetes Care. 2016.39(Suppl 1). Interpretation and review of laboratory results Abnormal [facility] Potassium [Moles/Vol] 3.3 mmol/L Low 3.7 - 5.1 mmol/L [facility] Protein [Mass/Vol] 5.8 g/dL Low 6.3 - 8.0 g/dL [facility] Sodium [Moles/Vol] 139 mmol/L 136 - 144 mmol/L [facility] Urea nitrogen [Mass/Vol] 16 mg/dL 7 - 21 mg/dL [facility] INR (POC)on 08-22-2023 INR Coag (PPP) [Relative time] 1.1 {INR} 0.8 - 1.2 [facility] Internal Quality Check Acceptable Cl [facility] Location:[facility], [address], [place], [address] [facility] POINT OF CARE [facility] No Panel InformationOrdered By: Zaynab Pina on 05-31-2023 29.8 SECONDS 11.7-14.9 [facility] 2.9 [facility] Absolute lymphocyte countOrd ered By: Zaynab Pina on 05-29-2023 Lymphocytes Auto (Unsp spec) [#/Vol] 1.06 10*3/uL 0.83-4.51 [facility] Automated lymphocyte count a s percentage of total leukocytesOrdered By: Zaynab Pina on 05-29-2023 Lymphocytes/100 WBC Auto (Unsp spec) 17.1 % 19-41 [facility] Basophil percentageOrdered B y: Zaynab Pina on 05-29-2023 Basophil percentage 9.8 g/dL 12.0-15.0 [facility] Basophil percentage 80 mg/dL 74-106 [facility] Basophil percentage 139 mmol/L 136-145 [facility] Basophil percentage 3.4 mmol/L 3.5-5.1 [facility] Basophil percentage 106 mmol/L 98-107 [facility] Basophils (Bld) [#/Vol] 6.2 10*3/uL 4.4-11.0 [facility] Basophils (Bld) [#/Vol] 4.1 10*3/uL 2.0-7.7 [facility] Basophils/100 WBC (Bld) 66.4 % 47-70 [facility] Basophils/100 WBC (Bld) 12.3 % 0-10 [facility] Basophils/100 WBC (Bld) 3.2 % 0-5 [facility] Basophils/100 WBC (Bld) 0.5 % 0-1 [facility] Determination of erythrocyte mean corpuscular volume (MCV)Ordered By: Zaynab Pina on 05-29-2023 MCV (RBC) [Entitic vol] 81.1 fL 81-99 [facility] Erythrocyte distribution wid th ratioOrdered By: Zaynab Pina on 05-29-2023 Erythrocyte distribution width (RBC) [Ratio] 17.6 % 11.6-14.6 [facility] Erythrocyte distribution wid th standard deviationOrdered By: Zaynab Pina on 05-29-2023 Erythrocyte distribution width (RBC) [Entitic vol] 52.1 fL 35.1-43.9 [facility] Hematocrit Auto (Bld) [Volum e fraction]Ordered By: Zaynab Pina on 05-29-2023 Hematocrit (Bld) [Volume fraction] 30.8 % 37-47 [facility] Immature granulocytes/100 WB C Auto (Bld)Ordered By: Zaynab Pina on 05-29-2023 Immature granulocytes/100 WBC (Bld) 0.500 % 0.0-0.9 [facility] No Panel InformationOrdered By: Zaynab Pina on 05-29-2023 25.8 pg 27.0-32.0 [facility] 31.8 g/dL 32-36 [facility] 194 K/mm3 150-450 [facility] 11.0 fl 6.2-12.0 [facility] 0 % 0-5 [facility] 116 mL/min >60 [facility] 141 mL/min >60 [facility] 29.6 RATIO 10-20 [facility] 28.0 mmol/L 21.0-32.0 [facility] RBC Auto (Bld) [#/Vol]Ordere d By: Zaynab Pina on 05-29-2023 RBC (Bld) [#/Vol] 3.80 10*6/uL 4.2-5.4 [facility] Serum or plasma calcium monica urement (mass/volume)Ordered By: Zaynab Pina on 05-29-2023 Calcium [Mass/Vol] 8.4 mg/dL 8.5-10.1 [facility] Serum or plasma creatinine m easurement (mass/volume)Ordered By: Zaynab Pina on 05-29-2023 Creatinine [Mass/Vol] 0.54 mg/dL 0.55-1.02 [facility] Serum or plasma urea nitroge n measurement (mass/volume)Ordered By: Zaynab Pina on 05-29-2023 Urea nitrogen [Mass/Vol] 16 mg/dL 7-18 [facility] Thin prep Papanicolaou smear with manual screeningOrdered By: Zaynab Pina on 05-29-2023 Thin prep Papanicolaou smear with manual screening 5 5-15 [facility] No Panel InformationOrdered By: Zaynab Pina on 05-28-2023 30.6 SECONDS 11.7-14.9 [facility] 3.0 [facility] Capillary blood internationa l normalized ratio (INR)Ordered By: Zaynab Pina on 05-24-2023 INR Coag (BldC) [Relative time] 1.9 [facility] Whole blood prothrombin time Ordered By: Zaynab Pina on 05-24-2023 PT Coag (Bld) [Time] 20.2 s 11.7-14.9 [facility] Capillary blood internationa l normalized ratio (INR)Ordered By: Zaynab Pina on 05-21-2023 INR Coag (BldC) [Relative time] 2.8 [facility] Whole blood prothrombin time Ordered By: Zaynab Pina on 05-21-2023 PT Coag (Bld) [Time] 28.8 s 11.7-14.9 [facility] Capillary blood internationa l normalized ratio (INR)Ordered By: Zaynab Pina on 05-17-2023 INR Coag (BldC) [Relative time] 3.0 [facility] Whole blood prothrombin time Ordered By: Zaynab Pina on 05-17-2023 PT Coag (Bld) [Time] 30.2 s 11.7-14.9 [facility] Absolute lymphocyte countOrd ered By: Zaynab Pina on 05-15-2023 Lymphocytes Auto (Unsp spec) [#/Vol] 1.62 10*3/uL 0.83-4.51 [facility] Automated lymphocyte count a s percentage of total leukocytesOrdered By: Zaynab Pina on 05-15-2023 Lymphocytes/100 WBC Auto (Unsp spec) 18.8 % 19-41 [facility] Basophil percentageOrdered B y: Zaynab Pina on 05-15-2023 Basophil percentage 10.0 g/dL 12.0-15.0 [facility] Basophil percentage 71 mg/dL 74-106 [facility] Basophil percentage 137 mmol/L 136-145 [facility] Basophil percentage 4.1 mmol/L 3.5-5.1 [facility] Basophil percentage 103 mmol/L 98-107 [facility] Basophils (Bld) [#/Vol] 8.6 10*3/uL 4.4-11.0 [facility] Basophils (Bld) [#/Vol] 5.6 10*3/uL 2.0-7.7 [facility] Basophils/100 WBC (Bld) 64.8 % 47-70 [facility] Basophils/100 WBC (Bld) 11.8 % 0-10 [facility] Basophils/100 WBC (Bld) 3.3 % 0-5 [facility] Basophils/100 WBC (Bld) 0.7 % 0-1 [facility] Determination of erythrocyte mean corpuscular volume (MCV)Ordered By: Zaynab Pina on 05-15-2023 MCV (RBC) [Entitic vol] 82.7 fL 81-99 [facility] Erythrocyte distribution wid th ratioOrdered By: Claudiopantegojoesph Pina on 05-15-2023 Erythrocyte distribution width (RBC) [Ratio] 18.1 % 11.6-14.6 [facility] Erythrocyte distribution wid th standard deviationOrdered By: Claudiopantegojoesph Pina on 05-15-2023 Erythrocyte distribution width (RBC) [Entitic vol] 54.5 fL 35.1-43.9 [facility] Hematocrit Auto (Bld) [Volum e fraction]Ordered By: Claudiopantegojoesph Pina on 05-15-2023 Hematocrit (Bld) [Volume fraction] 32.0 % 37-47 [facility] Immature granulocytes/100 WB C Auto (Bld)Ordered By: Zaynab Pina on 05-15-2023 Immature granulocytes/100 WBC (Bld) 0.600 % 0.0-0.9 [facility] No Panel InformationOrdered By: Zaynab Pina on 05-15-2023 25.8 pg 27.0-32.0 [facility] 31.3 g/dL 32-36 [facility] 322 K/mm3 150-450 [facility] 10.2 fl 6.2-12.0 [facility] 0 % 0-5 [facility] 96 mL/min >60 [facility] 117 mL/min >60 [facility] 20.4 RATIO 10-20 [facility] 27.0 mmol/L 21.0-32.0 [facility] RBC Auto (Bld) [#/Vol]Ordere d By: Zaynab Pina on 05-15-2023 RBC (Bld) [#/Vol] 3.87 10*6/uL 4.2-5.4 [facility] Serum or plasma calcium monica urement (mass/volume)Ordered By: Zaynab Pina on 05-15-2023 Calcium [Mass/Vol] 9.0 mg/dL 8.5-10.1 [facility] Serum or plasma creatinine m easurement (mass/volume)Ordered By: Zaynab Pina on 05-15-2023 Creatinine [Mass/Vol] 0.64 mg/dL 0.55-1.02 [facility] Serum or plasma urea nitroge n measurement (mass/volume)Ordered By: Zaynab Pina on 05-15-2023 Urea nitrogen [Mass/Vol] 13 mg/dL 7-18 [facility] Thin prep Papanicolaou smear with manual screeningOrdered By: Zaynab Pina on 05-15-2023 Thin prep Papanicolaou smear with manual screening 7 5-15 [facility] Capillary blood internationa l normalized ratio (INR)Ordered By: Zaynab Pina on 05-14-2023 INR Coag (BldC) [Relative time] 3.0 [facility] Comment on above: Critical Value > 4.0 Whole blood prothrombin time Ordered By: Zaynab Pina on 05-14-2023 PT Coag (Bld) [Time] 30.4 s 11.7-14.9 [facility] Capillary blood internationa l normalized ratio (INR)Ordered By: Zaynab Pina on 05-10-2023 INR Coag (BldC) [Relative time] 2.8 [facility] Comment on above: Critical Value > 4.0 Whole blood prothrombin time Ordered By: Zaynab Pina on 05-10-2023 PT Coag (Bld) [Time] 28.1 s 11.7-14.9 [facility] Capillary blood internationa l normalized ratio (INR)Ordered By: Zaynab Pina on 05-07-2023 INR Coag (BldC) [Relative time] 2.2 [facility] Comment on above: Critical Value > 4.0 Whole blood prothrombin time Ordered By: Zaynab Pina on 05-07-2023 PT Coag (Bld) [Time] 24.4 s 11.7-14.9 [facility] Laboratory - CoagulationOrde red By: Zaynab Pina on 05-03-2023 INR Coag (Bld) [Relative time] 2.1 {INR} [facility] PT Coag (PPP) [Time] 23.2 s 11.7-14.9 [facility] No Panel InformationOrdered By: Zaynab Pina on 05-03-2023 23.2 SECONDS 11.7-14.9 [facility] 2.1 [facility] Absolute lymphocyte countOrd ered By: Zaynab Pina on 05-01-2023 Lymphocytes Auto (Unsp spec) [#/Vol] 1.74 10*3/uL 0.83-4.51 [facility] Automated lymphocyte count a s percentage of total leukocytesOrdered By: Zaynab Pina on 05-01-2023 Lymphocytes/100 WBC Auto (Unsp spec) 23.1 % 19-41 [facility] Basophil percentageOrdered B y: Zaynab Pina on 05-01-2023 Basophil percentage 10.7 g/dL 12.0-15.0 [facility] Basophil percentage 86 mg/dL 74-106 [facility] Basophil percentage 5.8 g/dL 6.4-8.2 [facility] Basophil percentage 0.60 mg/dL 0.20-1.00 [facility] Basophil percentage 137 mmol/L 136-145 [facility] Basophil percentage 3.7 mmol/L 3.5-5.1 [facility] Basophil percentage 105 mmol/L 98-107 [facility] Basophils (Bld) [#/Vol] 7.5 10*3/uL 4.4-11.0 [facility] Basophils (Bld) [#/Vol] 4.7 10*3/uL 2.0-7.7 [facility] Basophils/100 WBC (Bld) 0.7 % 0-1 [facility] Basophils/100 WBC (Bld) 62.4 % 47-70 [facility] Basophils/100 WBC (Bld) 12.0 % 0-10 [facility] Basophils/100 WBC (Bld) 1.3 % 0-5 [facility] Bilirubin [Mass/Vol] 0.60 mg/dL 0.20-1.00 [facility] Comment on above: For patients on eltr ombopag therapy, use of Dimension [place] TBIL is not recommended. Chloride [Moles/Vol] 105 mmol/L 98-107 [facility] Eosinophils/100 WBC (Bld) 1.3 % 0-5 [facility] Glucose [Mass/Vol] 86 mg/dL 74-106 [facility] Hemoglobin (Bld) [Mass/Vol] 10.7 g/dL 12.0-15.0 [facility] Monocytes/100 WBC (Bld) 12.0 % 0-10 [facility] Neutrophils (Bld) [#/Vol] 4.7 10*3/uL 2.0-7.7 [facility] Neutrophils/100 WBC (Bld) 62.4 % 47-70 [facility] Potassium [Moles/Vol] 3.7 mmol/L 3.5-5.1 [facility] Protein [Mass/Vol] 5.8 g/dL 6.4-8.2 [facility] Sodium [Moles/Vol] 137 mmol/L 136-145 [facility] WBC (Bld) [#/Vol] 7.5 10*3/uL 4.4-11.0 [facility] Determination of erythrocyte mean corpuscular volume (MCV)Ordered By: Zaynab Pina on 05-01-2023 MCV (RBC) [Entitic vol] 84.2 fL 81-99 [facility] Erythrocyte distribution wid th ratioOrdered By: Zaynab Pina on 05-01-2023 Erythrocyte distribution width (RBC) [Ratio] 19.4 % 11.6-14.6 [facility] Erythrocyte distribution wid th standard deviationOrdered By: [facility] on 05-01-2023 Erythrocyte distribution width (RBC) [Entitic vol] 60.2 fL 35.1-43.9 [facility] Hematocrit Auto (Bld) [Volum e fraction]Ordered By: [facility] P[facility] on 05-01-2023 Hematocrit (Bld) [Volume fraction] 33.1 % 37-47 [facility] Immature granulocytes/100 WB C Auto (Bld)Ordered By: [facility] Yovani on 05-01-2023 Immature granulocytes/100 WBC (Bld) 0.500 % 0.0-0.9 [facility] Comment on above: IG% - Immature Granu locytes (promyelocytes, myelocytes and metamyelocytes) > 1% indicates that a LEFT SHIFT is Present. Laboratory - Chemistry and C hemistry - challengeOrdered By: elmerpantegojoesph Pina on 05-01-2023 Albumin/Globulin [Mass ratio] 0.9 {ratio} 0.9-2.4 [facility] ALP [Catalytic activity/Vol] 93 U/L 45-117 [facility] ALT [Catalytic activity/Vol] 35 U/L 13-56 [facility] CO2 [Moles/Vol] 27.0 mmol/L 21.0-32.0 [facility] Globulin (S) [Mass/Vol] 3.1 g/dL 2.2-4.2 [facility] Urea nitrogen/Creatinine [Mass ratio] 56.7 mg/mg 10-20 [facility] Laboratory - Hematology and Cell countsOrdered By: Claudiopantegojoesph Pina on 05-01-2023 MCH (RBC) [Entitic mass] 27.2 pg 27.0-32.0 [facility] MCHC (RBC) [Mass/Vol] 32.3 g/dL 32-36 [facility] Nucleated RBC/100 WBC (Bld) [Ratio] 0 % 0-5 [facility] Platelet mean volume (Bld) [Entitic vol] 10.2 fL 6.2-12.0 [facility] Platelets (Bld) [#/Vol] 223 10*3/uL 150-450 [facility] No Panel InformationOrdered By: Zaynab Pina on 05-01-2023 Estimated GFR (MDRD) Amer 163 mL/min >60 [facility] Comment on above: GFR Calc Estimated GFR (MDRD) Non-Af Amer 135 mL/min >60 [facility] Comment on above: Non- GFR Calc Vitamin D 25-Hydroxy 42.6 ng/mL [facility] Comment on above: Vitamin D 25(OH) Sta tus Range Deficiency <20 ng/mL (50nmol/L) Insufficiency 20 - 30 ng/mL (50 - 75 nmol/L) Sufficiency 30 - 100 ng/mL (75 - 250 nmol/L) Toxicity >100 ng/mL (>250 nmol/L) 27.2 pg 27.0-32.0 [facility] 32.3 g/dL 32-36 [facility] 223 K/mm3 150-450 [facility] 10.2 fl 6.2-12.0 [facility] 0 % 0-5 [facility] 135 mL/min >60 [facility] 163 mL/min >60 [facility] 56.7 RATIO 10-20 [facility] 3.1 g/dL 2.2-4.2 [facility] 0.9 RATIO 0.9-2.4 [facility] 93 U/L 45-117 [facility] 35 U/L 13-56 [facility] 27.0 mmol/L 21.0-32.0 [facility] 42.6 ng/mL [facility] RBC Auto (Bld) [#/Vol]Ordere d By: Zaynab Pina on 05-01-2023 RBC (Bld) [#/Vol] 3.93 10*6/uL 4.2-5.4 [facility] Serum or plasma calcium monica urement (mass/volume)Ordered By: Zaynab Pina on 05-01-2023 Calcium [Mass/Vol] 8.6 mg/dL 8.5-10.1 [facility] Serum or plasma creatinine m easurement (mass/volume)Ordered [...] 05-01-2023 Urea nitrogen [Mass/Vol] 27 mg/dL 7-18 [facility] Thin prep Papanicolaou smear with manual screeningOrdered By: Zaynab Pina on 05-01-2023 Thin prep Papanicolaou smear with manual screening 2.7 g/dL 3.2-5.0 [facility] Thin prep Papanicolaou smear with manual screening 23 U/L 15-37 [facility] Thin prep Papanicolaou smear with manual screening 5 5-15 [facility] Laboratory - CoagulationOrde red By: Edinson Irvin on 04-30-2023 INR Coag (Bld) [Relative time] 2.2 {INR} [facility] PT Coag (PPP) [Time] 24.5 s 11.7-14.9 [facility] No Panel InformationOrdered By: Edinson Irvin on 04-30-2023 24.5 SECONDS 11.7-14.9 [facility] 2.2 [facility] Basophil percentageOrdered B y: Edinson Irvin on 04-27-2023 Basophil percentage 82 mg/dL 74-106 [facility] Basophil percentage 136 mmol/L 136-145 [facility] Basophil percentage 3.6 mmol/L 3.5-5.1 [facility] Basophil percentage 101 mmol/L 98-107 [facility] Chloride [Moles/Vol] 101 mmol/L 98-107 [facility] Glucose [Mass/Vol] 82 mg/dL 74-106 [facility] Potassium [Moles/Vol] 3.6 mmol/L 3.5-5.1 [facility] Sodium [Moles/Vol] 136 mmol/L 136-145 [facility] Laboratory - Chemistry and C hemistry - challengeOrdered By: Edinson Irvin on 04-27-2023 CO2 [Moles/Vol] 28.0 mmol/L 21.0-32.0 [facility] Urea nitrogen/Creatinine [Mass ratio] 54.9 mg/mg - [facility] No Panel InformationOrdered By: Edinson Irvin on 04-27-2023 Estimated Creatinine Clearance Calc 50.26 ml/min [facility] Estimated GFR (MDRD) Amer 151 mL/min >60 [facility] Comment on above: GFR Calc Estimated GFR (MDRD) Non-Af Amer 125 mL/min >60 [facility] Comment on above: Non- GFR Calc 125 mL/min >60 [facility] 151 mL/min >60 [facility] 50.26 ml/min [facility] 54.9 RATIO 10 [facility] 28.0 mmol/L 21.0-32.0 [facility] Serum or plasma calcium monica urement (mass/volume)Ordered By: Edinson Irvin on 04-27-2023 Calcium [Mass/Vol] 8.4 mg/dL 8.5-10.1 [facility] Serum or plasma creatinine m easurement (mass/volume)Ordered [...] on 04-27-2023 Urea nitrogen [Mass/Vol] 28 mg/dL 09-05 [facility] Thin prep Papanicolaou smear with manual screeningOrdered By: Edinson Irvin on 04-27-2023 Thin prep Papanicolaou smear with manual screening 7 - [facility] Laboratory - CoagulationOrde red By: Edinson Irvin on 04-16-2023 INR Coag (Bld) [Relative time] 1.2 {INR} [facility] PT Coag (PPP) [Time] 14.8 s 11.7-14.9 [facility] Basophil percentageOrdered B y: Edinson Irvin on 04-13-2023 Chloride [Moles/Vol] 104 mmol/L 98-107 [facility] Glucose [Mass/Vol] 89 mg/dL 74-106 [facility] Potassium [Moles/Vol] 3.5 mmol/L 3.5-5.1 [facility] Sodium [Moles/Vol] 136 mmol/L 136-145 [facility] Laboratory - Chemistry and C hemistry - challengeOrdered By: Edinson Irvin on 04-13-2023 CO2 [Moles/Vol] 28.0 mmol/L 21.0-32.0 [facility] Urea nitrogen/Creatinine [Mass ratio] 38.2 mg/mg 10-20 [facility] No Panel InformationOrdered By: Edinson Irvin on 04-13-2023 Estimated Creatinine Clearance Calc 50.26 ml/min [facility] Estimated GFR (MDRD) Amer 147 mL/min >60 [facility] Comment on above: GFR Calc Estimated GFR (MDRD) Non-Af Amer 121 mL/min >60 [facility] Comment on above: Non- GFR Calc Respiratory pathogens detect ion panel by molecular detection methodOrdered By: Edinson Irvin on 04-13-2023 Respiratory pathogens DNA and RNA panel GWEN+probe (Resp) [facility] Respiratory pathogens DNA and RNA panel GWEN+probe (Resp) [facility] Serum or plasma calcium monica urement (mass/volume)Ordered By: Edinson Irvin on 04-13-2023 Calcium [Mass/Vol] 7.8 mg/dL 8.5-10.1 [facility] Serum or plasma creatinine m easurement (mass/volume)Ordered [...] 04-13-2023 Urea nitrogen [Mass/Vol] 20 mg/dL 7-18 [facility] Thin prep Papanicolaou smear with manual screeningOrdered By: Edinson Irvin 04-13-2023 Thin prep Papanicolaou smear with manual screening 4 5-15 [facility] Absolute lymphocyte countOrd ered By: Edinson Irvin on 04-12-2023 Lymphocytes Auto (Unsp spec) [#/Vol] 1.14 10*3/uL 0.83-4.51 [facility] Automated lymphocyte count a s percentage of total leukocytesOrdered By: Edinson Irvin on 04-12-2023 Lymphocytes/100 WBC Auto (Unsp spec) 27.6 % 19-41 [facility] Basophil percentageOrdered B y: Edinson Irvin on 04-12-2023 Basophil percentage 10.1 g/dL 12.0-15.0 [facility] Basophils (Bld) [#/Vol] 4.1 10*3/uL 4.4-11.0 [facility] Basophils (Bld) [#/Vol] 2.1 10*3/uL 2.0-7.7 [facility] Basophils/100 WBC (Bld) 1.2 % 0-1 [facility] Basophils/100 WBC (Bld) 50.6 % 47-70 [facility] Basophils/100 WBC (Bld) 11.4 % 0-10 [facility] Basophils/100 WBC (Bld) 8.7 % 0-5 [facility] Eosinophils/100 WBC (Bld) 8.7 % 0-5 [facility] Hemoglobin (Bld) [Mass/Vol] 10.1 g/dL 12.0-15.0 [facility] Monocytes/100 WBC (Bld) 11.4 % 0-10 [facility] Neutrophils (Bld) [#/Vol] 2.1 10*3/uL 2.0-7.7 [facility] Neutrophils/100 WBC (Bld) 50.6 % 47-70 [facility] WBC (Bld) [#/Vol] 4.1 10*3/uL 4.4-11.0 [facility] Determination of erythrocyte mean corpuscular volume (MCV)Ordered By: Edinson Irvin on 04-12-2023 MCV (RBC) [Entitic vol] 86.8 fL 81-99 [facility] Erythrocyte distribution wid th ratioOrdered By: Edinson Irvin on 04-12-2023 Erythrocyte distribution width (RBC) [Ratio] 22.8 % 11.6-14.6 [facility] Erythrocyte distribution wid th standard deviationOrdered By: Edinson Irvin on 04-12-2023 Erythrocyte distribution width (RBC) [Entitic vol] 72.1 fL 35.1-43.9 [facility] Hematocrit Auto (Bld) [Volum e fraction]Ordered By: Edinson Irvin on 04-12-2023 Hematocrit (Bld) [Volume fraction] 30.9 % 37-47 [facility] Immature granulocytes/100 WB C Auto (Bld)Ordered By: Edinson Irvin on 04-12-2023 Immature granulocytes/100 WBC (Bld) 0.500 % 0.0-0.9 [facility] Comment on above: IG% - Immature Granu locytes (promyelocytes, myelocytes and metamyelocytes) > 1% indicates that a LEFT SHIFT is Present. Laboratory - Hematology and Cell countsOrdered By: Edinson Irvin on 04-12-2023 MCH (RBC) [Entitic mass] 28.4 pg 27.0-32.0 [facility] MCHC (RBC) [Mass/Vol] 32.7 g/dL 32-36 [facility] Nucleated RBC/100 WBC (Bld) [Ratio] 0 % 0-5 [facility] Platelet mean volume (Bld) [Entitic vol] 9.8 fL 6.2-12.0 [facility] Platelets (Bld) [#/Vol] 119 10*3/uL 150-450 [facility] No Panel InformationOrdered By: [facility] Albaro on 04-12-2023 28.4 pg 27.0-32.0 [facility] 32.7 g/dL 32-36 [facility] 119 K/mm3 150-450 [facility] 9.8 fl 6.2-12.0 [facility] 0 % 0-5 [facility] RBC Auto (Bld) [#/Vol]Ordere d By: Edinson Irvin on 04-12-2023 RBC (Bld) [#/Vol] 3.56 10*6/uL 4.2-5.4 [facility] Blood manual differential co mment interpretation (narrative result)Ordered By: Edinson Irvin on 04-11-2023 Manual differential comment Donte (Bld) [Interp] SCANNED [facility] Blood platelet adequacy dete ction by light microscopyOrdered By: Edinson Irvin on 04-11-2023 Platelets LM Ql (Bld) MOD DEC ADEQ [facility] Laboratory - Hematology and Cell countsOrdered By: Edinson Irvin on 04-11-2023 Anisocytosis Ql (Bld) 1+ [facility] No Panel InformationOrdered By: Edinson Irvin on 04-11-2023 1+ [facility] Basophil percentageOrdered B y: Edinson Irvin on 04-06-2023 Basophil percentage 0 SEEN /hpf 0-5 [facility] Bilirubin Test strip Ql (U)O rdered By: Edinson Irvin on 04-06-2023 Bilirubin Ql (U) Negative Negative [facility] Culture, urineOrdered By: Gal Irvin on 04-06-2023 Bacteria identified Cx Nom (U) Culture exhibits no growth. [facility] Ketones Test strip Ql (U)Ord ered By: Edinson Irvin on 04-06-2023 Ketones Ql (U) Negative Negative [facility] Mucus LM Ql (Urine sed)Order ed By: Edinson Irvin on 04-06-2023 Mucus Ql (Urine sed) 0 SEEN /hpf [facility] Nitrite Test strip Ql (U)Ord ered By: Edinson Irvin on 04-06-2023 Nitrite Ql (U) Negative Negative [facility] No Panel InformationOrdered By: Edinson Irvin on 04-06-2023 Urine RBC 0 SEEN /hpf 0-5 [facility] 0 SEEN /hpf 0-5 [facility] Protein Test strip Ql (U)Ord ered By: Edinson Irvin on 04-06-2023 Protein Ql (U) 15 mg/dl Negative [facility] Review by pathologistOrdered By: Edinson Irvin on 04-06-2023 Pathologist review Donte (Unsp spec) [Interp] Reviewed [facility] Comment on above: Previous reported re sult: Dori urbano Edited by: CECY on 04/06/23:1217Normocytic anemia.MARKED Thrombocytopenia.Clinical correlation necessary.Landon Ontiveros M.D. 04/06/23 AMENDED REPORT 04/06/23 1217 PATH REV previously reported as: Dori urbano Squamous epithelial cells de tection in urine sediment by light microscopyOrdered By: Edinson Irvin on 04-06-2023 Epithelial cells.squamous LM Ql (Urine sed) 0-5 SEEN /hpf 5-10 [facility] Urine blood detectionOrdered By: Edinson Irvin on 04-06-2023 RBC Ql (U) 10 /ul Negative [facility] Urine clarityOrdered By: Edinson Irvin on 04-06-2023 Clarity (U) Clear Clear [facility] Urine color determinationOrd ered By: Edinson Irvin on 04-06-2023 Color (U) Yellow Yellow [facility] Urine glucose detectionOrder ed By: Edinson Irvin on 04-06-2023 Glucose Ql (U) Normal mg/dl Normal [facility] Urine leukocyte esterase det ection by dipstickOrdered By: Edinson Irvin on 04-06-2023 Leukocyte esterase Test strip Ql (U) Negative Negative [facility] Urine pHOrdered By: Edinson Irvin on 04-06-2023 pH (U) 6.0 [pH] 5.0 - 8.0 [facility] Urine sediment bacteria coun t by microscopy (number/high power field)Ordered By: Edinson Irvin on 04-06-2023 Bacteria LM.HPF (Urine sed) [#/Area] 0 /[HPF] None Seen [facility] Urine specific gravity measu rementOrdered By: Edinson Irvin on 04-06-2023 Specific gravity (U) [Rel density] 1.015 1.002-1.03 0 [facility] Urine urobilinogen measureme ntOrdered By: Edinson Irvin on 04-06-2023 Urobilinogen Ql (U) Normal mg/dl Normal [facility] Absolute lymphocyte countOrd ered By: Jasmyn Chan on 04-05-2023 Lymphocytes Auto (Unsp spec) [#/Vol] 0.61 10*3/uL 0.83-4.51 [facility] Automated lymphocyte count a s percentage of total leukocytesOrdered By: Jasmyn Chan on 04-05-2023 Lymphocytes/100 WBC Auto (Unsp spec) 10.5 % 19-41 [facility] Basophil percentageOrdered B y: Jasmyn Chan on 04-05-2023 Basophil percentage 9.6 g/dL 12.0-15.0 [facility] Basophils (Bld) [#/Vol] 5.8 10*3/uL 4.4-11.0 [facility] Basophils (Bld) [#/Vol] 4.4 10*3/uL 2.0-7.7 [facility] Basophils/100 WBC (Bld) 0.2 % 0-1 [facility] Basophils/100 WBC (Bld) 74.7 % 47-70 [facility] Basophils/100 WBC (Bld) 8.8 % 0-10 [facility] Basophils/100 WBC (Bld) 5.3 % 0-5 [facility] Eosinophils/100 WBC (Bld) 5.3 % 0-5 [facility] Hemoglobin (Bld) [Mass/Vol] 9.6 g/dL 12.0-15.0 [facility] Monocytes/100 WBC (Bld) 8.8 % 0-10 [facility] Neutrophils (Bld) [#/Vol] 4.4 10*3/uL 2.0-7.7 [facility] Neutrophils/100 WBC (Bld) 74.7 % 47-70 [facility] WBC (Bld) [#/Vol] 5.8 10*3/uL 4.4-11.0 [facility] Blood platelet adequacy dete ction by light microscopyOrdered By: Jasmyn Chan on 04-05-2023 Platelets LM Ql (Bld) MKD DEC ADEQ [facility] Determination of erythrocyte mean corpuscular volume (MCV)Ordered By: Jasmyn Chan on 04-05-2023 MCV (RBC) [Entitic vol] 85.0 fL 81-99 [facility] Erythrocyte distribution wid th ratioOrdered By: Jasmyn Chan on 04-05-2023 Erythrocyte distribution width (RBC) [Ratio] 22.8 % 11.6-14.6 [facility] Erythrocyte distribution wid th standard deviationOrdered By: Jasmyn Chan on 04-05-2023 Erythrocyte distribution width (RBC) [Entitic vol] 69.7 fL 35.1-43.9 [facility] Hematocrit Auto (Bld) [Volum e fraction]Ordered By: Jasmyn Chan on 04-05-2023 Hematocrit (Bld) [Volume fraction] 28.8 % 37-47 [facility] Immature granulocytes/100 WB C Auto (Bld)Ordered By: Jasmyn Chan on 04-05-2023 Immature granulocytes/100 WBC (Bld) 0.500 % 0.0-0.9 [facility] Comment on above: IG% - Immature Granu locytes (promyelocytes, myelocytes and metamyelocytes) > 1% indicates that a LEFT SHIFT is Present. Laboratory - Hematology and Cell countsOrdered By: Jasmyn Chan on 04-05-2023 Anisocytosis Ql (Bld) 2+ [facility] MCH (RBC) [Entitic mass] 28.3 pg 27.0-32.0 [facility] MCHC (RBC) [Mass/Vol] 33.3 g/dL 32-36 [facility] Nucleated RBC/100 WBC (Bld) [Ratio] 0 % 0-5 [facility] Platelet mean volume (Bld) [Entitic vol] 9.9 fL 6.2-12.0 [facility] Platelets (Bld) [#/Vol] 32 10*3/uL 150-450 [facility] No Panel InformationOrdered By: Jasmyn Chan on 04-05-2023 28.3 pg 27.0-32.0 [facility] 33.3 g/dL 32-36 [facility] 32 K/mm3 150-450 [facility] 9.9 fl 6.2-12.0 [facility] 0 % 0-5 [facility] 2+ [facility] RBC Auto (Bld) [#/Vol]Ordere d By: Jasmyn Chan on 04-05-2023 RBC (Bld) [#/Vol] 3.39 10*6/uL 4.2-5.4 [facility] Review by pathologistOrdered By: Jasmyn Chan on 04-05-2023 Pathologist review Donte (Unsp spec) [Interp] Reviewed [facility] Comment on above: Previous reported re sult: Dori urbano Edited by: RGOOD on 04/05/23:1300Normocytic anemia.Marked Thrombocytopenia.Clinical correlation necessary.Landon Ontiveros M.D. 04/05/23 AMENDED REPORT 04/05/23 1300 PATH REV previously reported as: Dori urbano Blood manual differential co mment interpretation (narrative result)Ordered By: Jasmyn Chan on 04-04-2023 Manual differential comment Donte (Bld) [Interp] SCANNED [facility] Comment on above: LYMPHOPENIA NOTEDTHR OMBOCYTOPENIA NOTED Laboratory - CoagulationOrde red By: Laine Veras on 04-03-2023 INR Coag (Bld) [Relative time] 1.3 {INR} [facility] PT Coag (PPP) [Time] 16.2 s 11.7-14.9 [facility] No Panel InformationOrdered By: Laine Veras on 04-03-2023 16.2 SECONDS 11.7-14.9 [facility] 1.3 [facility] Basophil percentageOrdered B y: Alisa Mathew on 04-02-2023 Basophil percentage 86 mg/dL 74-106 [facility] Basophil percentage 4.9 g/dL 6.4-8.2 [facility] Basophil percentage 1.70 mg/dL 0.20-1.00 [facility] Basophil percentage 134 mmol/L 136-145 [facility] Basophil percentage 3.6 mmol/L 3.5-5.1 [facility] Basophil percentage 102 mmol/L 98-107 [facility] Bilirubin [Mass/Vol] 1.70 mg/dL 0.20-1.00 [facility] Comment on above: For patients on eltr ombopag therapy, use of Dimension [place] TBIL is not recommended. Chloride [Moles/Vol] 102 mmol/L 98-107 [facility] Glucose [Mass/Vol] 86 mg/dL 74-106 [facility] Potassium [Moles/Vol] 3.6 mmol/L 3.5-5.1 [facility] Protein [Mass/Vol] 4.9 g/dL 6.4-8.2 [facility] Sodium [Moles/Vol] 134 mmol/L 136-145 [facility] Laboratory - Chemistry and C hemistry - challengeOrdered By: Alisa Mathew on 04-02-2023 Albumin/Globulin [Mass ratio] 0.7 {ratio} 0.9-2.4 [facility] ALP [Catalytic activity/Vol] 84 U/L 45-117 [facility] ALT [Catalytic activity/Vol] 35 U/L 13-56 [facility] CO2 [Moles/Vol] 27.0 mmol/L 21.0-32.0 [facility] Globulin (S) [Mass/Vol] 2.9 g/dL 2.2-4.2 [facility] Urea nitrogen/Creatinine [Mass ratio] 25.1 mg/mg 10-20 [facility] No Panel InformationOrdered By: Alisa Mathew on 04-02-2023 Estimated Creatinine Clearance Calc 50.26 ml/min [facility] Estimated GFR (MDRD) Amer 149 mL/min >60 [facility] Comment on above: GFR Calc Estimated GFR (MDRD) Non-Af Amer 123 mL/min >60 [facility] Comment on above: Non- GFR Calc 123 mL/min >60 [facility] 149 mL/min >60 [facility] 50.26 ml/min [facility] 25.1 RATIO 10- [facility] 2.9 g/dL 2.2-4.2 [facility] 0.7 RATIO 0.9-2.4 [facility] 84 U/L 45-117 [facility] 35 U/L [facility] 27.0 mmol/L 21.0-32.0 [facility] Serum or plasma calcium monica urement (mass/volume)Ordered By: Alisa Mathew on 04-02-2023 Calcium [Mass/Vol] 7.2 mg/dL 8.5-10.1 [facility] Serum or plasma creatinine m easurement (mass/volume)Ordered [...] 04-02-2023 Urea nitrogen [Mass/Vol] 13 mg/dL 7-18 [facility] Thin prep Papanicolaou smear with manual screeningOrdered By: Alisa Mathew on 04-02-2023 Thin prep Papanicolaou smear with manual screening 2.0 g/dL 3.2-5.0 [facility] Thin prep Papanicolaou smear with manual screening 20 U/L 15-37 [facility] Thin prep Papanicolaou smear with manual screening 5 5-15 [facility] Iron measurement (mass/mass) Ordered By: Alisa Mathew on 04-01-2023 Iron (Unsp spec) [Mass/Mass] 21 ug/dL 50-170 [facility] Laboratory - Chemistry and C hemistry - challengeOrdered By: Alisa Mathew on 04-01-2023 Ferritin [Mass/Vol] 268 ng/mL 8-252 [facility] Laboratory - Chemistry and C hemistry - challengeOrdered By: Laine Veras on 04-01-2023 Magnesium [Mass/Vol] 2.1 mg/dL 1.6-2.6 [facility] No Panel InformationOrdered By: Alisa Mathew on 04-01-2023 Total Iron Binding Capacity 243 ug/dL 250-450 [facility] 243 ug/dL 250-450 [facility] 268 ng/mL 8- [facility] No Panel InformationOrdered By: Laine Veras on 04-01-2023 2.1 mg/dL 1.6-2.6 [facility] Serum or plasma iron saturat ion measurement (mass fraction)Ordered By: Alisa Mathew on 04-01-2023 Iron saturation [Mass fraction] 8.6 % 15.0-55.0 [facility] Absolute lymphocyte countOrd ered By: Frederick Almazan on 03-31-2023 Lymphocytes Auto (Unsp spec) [#/Vol] 0.59 10*3/uL 0.83-4.51 [facility] Automated lymphocyte count a s percentage of total leukocytesOrdered By: Frederick Almazan on 03-31-2023 Lymphocytes/100 WBC Auto (Unsp spec) 3.0 % 19-41 [facility] Basophil percentageOrdered B y: Frederick Almazan on 03-31-2023 Basophil percentage 1.4 mmol/L 0.4-2.0 [facility] Basophils/100 WBC (Bld) 0.1 % 0-1 [facility] Chloride [Moles/Vol] 99 mmol/L 98-107 [facility] Eosinophils/100 WBC (Bld) 0.1 % 0-5 [facility] Glucose [Mass/Vol] 108 mg/dL 74-106 [facility] Comment on above: Fasting Glucose resu lt from 100 to 125 mg/dL suggests IMPAIRED HOMEOSTASIS per A.D.A. criteria. Hemoglobin (Bld) [Mass/Vol] 8.3 g/dL 12.0-15.0 [facility] Lactate [Moles/Vol] 1.4 mmol/L 0.4-2.0 [facility] Monocytes/100 WBC (Bld) 5.0 % 0-10 [facility] Neutrophils (Bld) [#/Vol] 17.6 10*3/uL 2.0-7.7 [facility] Neutrophils/100 WBC (Bld) 90.8 % 47-70 [facility] Potassium [Moles/Vol] 3.2 mmol/L 3.5-5.1 [facility] Sodium [Moles/Vol] 134 mmol/L 136-145 [facility] WBC (Bld) [#/Vol] 19.4 10*3/uL 4.4-11.0 [facility] Blood manual differential co mment interpretation (narrative result)Ordered By: Frederick Almazan on 03-31-2023 Manual differential comment Donte (Bld) [Interp] SCANNED [facility] Blood platelet adequacy dete ction by light microscopyOrdered By: Frederick Almazan on 03-31-2023 Platelets LM Ql (Bld) MOD DEC ADEQ [facility] Determination of erythrocyte mean corpuscular volume (MCV)Ordered By: Frederick Almazan on 03-31-2023 MCV (RBC) [Entitic vol] 86.8 fL 81-99 [facility] Erythrocyte distribution wid th ratioOrdered By: Frederick Almazan on 03-31-2023 Erythrocyte distribution width (RBC) [Ratio] 24.1 % 11.6-14.6 [facility] Erythrocyte distribution wid th standard deviationOrdered By: Frederick Almazan on 03-31-2023 Erythrocyte distribution width (RBC) [Entitic vol] 75.1 fL 35.1-43.9 [facility] Erythrocyte sedimentation ra teOrdered By: Laine Veras on 03-31-2023 ESR (Bld) [Velocity] 7 mm/h 0-30 [facility] Hematocrit Auto (Bld) [Volum e fraction]Ordered By: Frederick Almazan on 03-31-2023 Hematocrit (Bld) [Volume fraction] 24.9 % 37-47 [facility] Immature granulocytes/100 WB C Auto (Bld)Ordered By: Frederick Almazan on 03-31-2023 Immature granulocytes/100 WBC (Bld) 1.000 % 0.0-0.9 [facility] Comment on above: IG% - Immature Granu locytes (promyelocytes, myelocytes and metamyelocytes) > 1% indicates that a LEFT SHIFT is Present. Laboratory - Chemistry and C hemistry - challengeOrdered By: Frederick Almazan on 03-31-2023 CK [Catalytic activity/Vol] 125 U/L 26-192 [facility] CO2 [Moles/Vol] 29.0 mmol/L 21.0-32.0 [facility] Natriuretic peptide B (Bld) [Mass/Vol] 97.8 pg/mL 0-100 [facility] Urea nitrogen/Creatinine [Mass ratio] 41.2 mg/mg 10-20 [facility] Laboratory - CoagulationOrde red By: Frederick Almazan on 03-31-2023 INR Coag (Bld) [Relative time] 1.3 {INR} [facility] PT Coag (PPP) [Time] 16.0 s 11.7-14.9 [facility] Laboratory - Hematology and Cell countsOrdered By: Frederick Almazan on 03-31-2023 Anisocytosis Ql (Bld) 2+ [facility] MCH (RBC) [Entitic mass] 28.9 pg 27.0-32.0 [facility] MCHC (RBC) [Mass/Vol] 33.3 g/dL 32-36 [facility] Nucleated RBC/100 WBC (Bld) [Ratio] 0 % 0-5 [facility] Platelet mean volume (Bld) [Entitic vol] 10.4 fL 6.2-12.0 [facility] Platelets (Bld) [#/Vol] 95 10*3/uL 150-450 [facility] Macrocytes detectionOrdered By: Frederick Almazan on 03-31-2023 Macrocytes Ql (Bld) 1+ [facility] No Panel InformationOrdered By: Laine Veras on 02-10-2024 C-Reactive Protein Extended Range 35.90 mg/L 0.0-3.0 [facility] Comment on above: C-Reactive Protein ( CRP) provides useful information for thediagnosis, therapy and monitoring of inflammatory processesand associated diseases. For the evaluation of Relative Riskfor Cardiovascular Disease, a High Sensitivity CRP (HSCRP)should be ordered. 35.90 mg/L 0.0-3.0 [facility] No Panel InformationOrdered By: Frederick Almazan on 03-31-2023 Estimated Creatinine Clearance Calc 50.26 ml/min [facility] Estimated GFR (MDRD) Amer 96 mL/min >60 [facility] Comment on above: GFR Calc Estimated GFR (MDRD) Non-Af Amer 80 mL/min >60 [facility] Comment on above: Non- GFR Calc 125 U/L 26-192 [facility] 97.8 pg/mL 0-100 [facility] RBC Auto (Bld) [#/Vol]Ordere d By: Frederick Almazan on 03-31-2023 RBC (Bld) [#/Vol] 2.87 10*6/uL 4.2-5.4 [facility] Serum or plasma calcium monica urement (mass/volume)Ordered By: Frederick Almazan on 03-31-2023 Calcium [Mass/Vol] 7.8 mg/dL 8.5-10.1 [facility] Serum or plasma creatinine m easurement (mass/volume)Ordered [...] 03-31-2023 Urea nitrogen [Mass/Vol] 31 mg/dL 7-18 [facility] Thin prep Papanicolaou smear with manual screeningOrdered By: Frederick Almazan on 03-31-2023 Thin prep Papanicolaou smear with manual screening 1+ [facility] Thin prep Papanicolaou smear with manual screening 6 5-15 [facility] Absolute lymphocyte countOrd ered By: Etienne Thacker on 03-28-2023 Lymphocytes Auto (Unsp spec) [#/Vol] 1.04 10*3/uL 0.83-4.51 [facility] Automated lymphocyte count a s percentage of total leukocytesOrdered By: Etienne Thacker on 03-28-2023 Lymphocytes/100 WBC Auto (Unsp spec) 7.4 % 19-41 [facility] Basophil percentageOrdered B y: Etienne Thacker on 03-28-2023 Basophil percentage 9.6 g/dL 12.0-15.0 [facility] Basophil percentage 113 mg/dL 74-106 [facility] Basophil percentage 131 mmol/L 136-145 [facility] Basophil percentage 4.0 mmol/L 3.5-5.1 [facility] Basophil percentage 98 mmol/L 98-107 [facility] Basophils (Bld) [#/Vol] 14.1 10*3/uL 4.4-11.0 [facility] Basophils (Bld) [#/Vol] 11.3 10*3/uL 2.0-7.7 [facility] Basophils/100 WBC (Bld) 0.2 % 0-1 [facility] Basophils/100 WBC (Bld) 80.2 % 47-70 [facility] Basophils/100 WBC (Bld) 9.8 % 0-10 [facility] Basophils/100 WBC (Bld) 0.0 % 0-5 [facility] Chloride [Moles/Vol] 98 mmol/L 98-107 [facility] Eosinophils/100 WBC (Bld) 0.0 % 0-5 [facility] Glucose [Mass/Vol] 113 mg/dL 74-106 [facility] Comment on above: Fasting Glucose resu lt from 100 to 125 mg/dL suggests IMPAIRED HOMEOSTASIS per A.D.A. criteria. Hemoglobin (Bld) [Mass/Vol] 9.6 g/dL 12.0-15.0 [facility] Monocytes/100 WBC (Bld) 9.8 % 0-10 [facility] Neutrophils (Bld) [#/Vol] 11.3 10*3/uL 2.0-7.7 [facility] Neutrophils/100 WBC (Bld) 80.2 % 47-70 [facility] Potassium [Moles/Vol] 4.0 mmol/L 3.5-5.1 [facility] Sodium [Moles/Vol] 131 mmol/L 136-145 [facility] WBC (Bld) [#/Vol] 14.1 10*3/uL 4.4-11.0 [facility] Blood manual differential co mment interpretation (narrative result)Ordered By: Etienne Thacker on 03-28-2023 Manual differential comment Donte (Bld) [Interp] See comment [facility] Comment on above: 1+ ANISOCYTOSIS Determination of erythrocyte mean corpuscular volume (MCV)Ordered By: Etienne Thacker on 03-28-2023 MCV (RBC) [Entitic vol] 83.2 fL 81-99 [facility] Erythrocyte distribution wid th ratioOrdered By: Etienne Thacker on 03-28-2023 Erythrocyte distribution width (RBC) [Ratio] 22.1 % 11.6-14.6 [facility] Erythrocyte distribution wid th standard deviationOrdered By: Etienne Thacker on 03-28-2023 Erythrocyte distribution width (RBC) [Entitic vol] 52.7 fL 35.1-43.9 [facility] Hematocrit Auto (Bld) [Volum e fraction]Ordered By: Etienne Thacker on 03-28-2023 Hematocrit (Bld) [Volume fraction] 28.8 % 37-47 [facility] Immature granulocytes/100 WB C Auto (Bld)Ordered By: Etienne Thacker on 03-28-2023 Immature granulocytes/100 WBC (Bld) 2.400 % 0.0-0.9 [facility] Comment on above: IG% - Immature Granu locytes (promyelocytes, myelocytes and metamyelocytes) > 1% indicates that a LEFT SHIFT is Present. Laboratory - Chemistry and C hemistry - challengeOrdered By: Etienne Thacker on 03-28-2023 CO2 [Moles/Vol] 25.0 mmol/L 21.0-32.0 [facility] Natriuretic peptide B (Bld) [Mass/Vol] 162.5 pg/mL 0-100 [facility] Urea nitrogen/Creatinine [Mass ratio] 35.6 mg/mg 10-20 [facility] Laboratory - CoagulationOrde red By: Etienne Thacker on 03-28-2023 INR Coag (Bld) [Relative time] 3.1 {INR} [facility] PT Coag (PPP) [Time] 32.4 s 11.7-14.9 [facility] Laboratory - Hematology and Cell countsOrdered By: Etienne Thacker on 03-28-2023 MCH (RBC) [Entitic mass] 27.7 pg 27.0-32.0 [facility] MCHC (RBC) [Mass/Vol] 33.3 g/dL 32-36 [facility] Nucleated RBC/100 WBC (Bld) [Ratio] 0.1 % 0-5 [facility] Platelet mean volume (Bld) [Entitic vol] 10.3 fL 6.2-12.0 [facility] Platelets (Bld) [#/Vol] 170 10*3/uL 150-450 [facility] No Panel InformationOrdered By: Etienne Thacker on 03-28-2023 Estimated Creatinine Clearance Calc 39.81 ml/min [facility] Estimated GFR (MDRD) Amer 69 mL/min >60 [facility] Comment on above: GFR Calc Estimated GFR (MDRD) Non-Af Amer 57 mL/min >60 [facility] Comment on above: Non- GFR Calc Troponin I High Sensitivity 17 pg/mL 3.0-54.0 [facility] Comment on above: Please Note: New [place] t Units and Gender Specific Reference Ranges. For more information see Policy Stat Procedure [place] High Sensitivity Troponin (TNIH) and attachments. 27.7 pg 27.0-32.0 [facility] 33.3 g/dL 32-36 [facility] 170 K/mm3 150-450 [facility] 10.3 fl 6.2-12.0 [facility] 0.1 % 0-5 [facility] 32.4 SECONDS 11.7-14.9 [facility] 3.1 [facility] 57 mL/min >60 [facility] 69 mL/min >60 [facility] 39.81 ml/min [facility] 35.6 RATIO 10-20 [facility] 17 pg/mL 3.0-54.0 [facility] 25.0 mmol/L 21.0-32.0 [facility] 162.5 pg/mL 0-100 [facility] RBC Auto (Bld) [#/Vol]Ordere d By: Etienne Thackre on 03-28-2023 RBC (Bld) [#/Vol] 3.46 10*6/uL 4.2-5.4 [facility] Serum or plasma calcium monica urement (mass/volume)Ordered By: Etienne Thacker on 03-28-2023 Calcium [Mass/Vol] 8.5 mg/dL 8.5-10.1 [facility] Serum or plasma creatinine m easurement (mass/volume)Ordered By: Etienne Thacker on 03-28-2023 Creatinine [Mass/Vol] 1.01 mg/dL 0.55-1.02 [facility] Comment on above: The validity of the calculated GFR & GFRAA in patients over 70 years has not been determined. Clinical correlation is essential. Serum or plasma urea nitroge n measurement (mass/volume)Ordered By: Etienne Tahcker on 03-28-2023 Urea nitrogen [Mass/Vol] 36 mg/dL 7-18 [facility] Thin prep Papanicolaou smear with manual screeningOrdered By: Etienne Thacker on 03-28-2023 Thin prep Papanicolaou smear with manual screening 8 5-15 [facility] Absolute lymphocyte countOrd ered By: Laine Veras on 03-27-2023 Lymphocytes Auto (Unsp spec) [#/Vol] 1.08 10*3/uL 0.83-4.51 [facility] Automated lymphocyte count a s percentage of total leukocytesOrdered By: Laine Veras on 03-27-2023 Lymphocytes/100 WBC Auto (Unsp spec) 8.7 % 19-41 [facility] Basophil percentageOrdered B y: Laine Veras on 03-27-2023 Basophil percentage 7.9 g/dL 12.0-15.0 [facility] Basophil percentage 103 mg/dL 74-106 [facility] Basophil percentage 5.3 g/dL 6.4-8.2 [facility] Basophil percentage 1.70 mg/dL 0.20-1.00 [facility] Basophil percentage 132 mmol/L 136-145 [facility] Basophil percentage 4.1 mmol/L 3.5-5.1 [facility] Basophil percentage 101 mmol/L 98-107 [facility] Basophils (Bld) [#/Vol] 12.4 10*3/uL 4.4-11.0 [facility] Basophils (Bld) [#/Vol] 9.5 10*3/uL 2.0-7.7 [facility] Basophils/100 WBC (Bld) 0.2 % 0-1 [facility] Basophils/100 WBC (Bld) 76.4 % 47-70 [facility] Basophils/100 WBC (Bld) 10.7 % 0-10 [facility] Basophils/100 WBC (Bld) 0.0 % 0-5 [facility] Bilirubin [Mass/Vol] 1.70 mg/dL 0.20-1.00 [facility] Comment on above: For patients on eltr ombopag therapy, use of Dimension [place] TBIL is not recommended. Chloride [Moles/Vol] 101 mmol/L 98-107 [facility] Eosinophils/100 WBC (Bld) 0.0 % 0-5 [facility] Glucose [Mass/Vol] 103 mg/dL 74-106 [facility] Comment on above: Fasting Glucose resu lt from 100 to 125 mg/dL suggests IMPAIRED HOMEOSTASIS per A.D.A. criteria. Hemoglobin (Bld) [Mass/Vol] 7.9 g/dL 12.0-15.0 [facility] Monocytes/100 WBC (Bld) 10.7 % 0-10 [facility] Neutrophils (Bld) [#/Vol] 9.5 10*3/uL 2.0-7.7 [facility] Neutrophils/100 WBC (Bld) 76.4 % 47-70 [facility] Potassium [Moles/Vol] 4.1 mmol/L 3.5-5.1 [facility] Protein [Mass/Vol] 5.3 g/dL 6.4-8.2 [facility] Sodium [Moles/Vol] 132 mmol/L 136-145 [facility] WBC (Bld) [#/Vol] 12.4 10*3/uL 4.4-11.0 [facility] Blood manual differential co mment interpretation (narrative result)Ordered By: Laine Veras on 03-27-2023 Manual differential comment Donte (Bld) [Interp] SCANNED [facility] Determination of erythrocyte mean corpuscular volume (MCV)Ordered By: Laine Veras on 03-27-2023 MCV (RBC) [Entitic vol] 85.0 fL 81-99 [facility] Erythrocyte distribution wid th ratioOrdered By: Laine Veras on 03-27-2023 Erythrocyte distribution width (RBC) [Ratio] 20.5 % 11.6-14.6 [facility] Erythrocyte distribution wid th standard deviationOrdered By: Laine Veras on 03-27-2023 Erythrocyte distribution width (RBC) [Entitic vol] 51.5 fL 35.1-43.9 [facility] Hematocrit Auto (Bld) [Volum e fraction]Ordered By: Laine Veras on 03-27-2023 Hematocrit (Bld) [Volume fraction] 24.4 % 37-47 [facility] Immature granulocytes/100 WB C Auto (Bld)Ordered By: Laine Veras on 03-27-2023 Immature granulocytes/100 WBC (Bld) 4.000 % 0.0-0.9 [facility] Comment on above: IG% - Immature Granu locytes (promyelocytes, myelocytes and metamyelocytes) > 1% indicates that a LEFT SHIFT is Present. Laboratory - Chemistry and C hemistry - challengeOrdered By: Laine Veras on 03-27-2023 Albumin/Globulin [Mass ratio] 0.8 {ratio} 0.9-2.4 [facility] ALP [Catalytic activity/Vol] 170 U/L 45-117 [facility] ALT [Catalytic activity/Vol] 65 U/L 13-56 [facility] CO2 [Moles/Vol] 24.0 mmol/L 21.0-32.0 [facility] Globulin (S) [Mass/Vol] 3.0 g/dL 2.2-4.2 [facility] Magnesium [Mass/Vol] 2.6 mg/dL 1.6-2.6 [facility] Urea nitrogen/Creatinine [Mass ratio] 29.9 mg/mg 10-20 [facility] Laboratory - CoagulationOrde red By: Laine Veras on 03-27-2023 INR Coag (Bld) [Relative time] 3.9 {INR} [facility] PT Coag (PPP) [Time] 38.9 s 11.7-14.9 [facility] Laboratory - Hematology and Cell countsOrdered By: Laine Veras on 03-27-2023 Anisocytosis Ql (Bld) 2+ [facility] MCH (RBC) [Entitic mass] 27.5 pg 27.0-32.0 [facility] MCHC (RBC) [Mass/Vol] 32.4 g/dL 32-36 [facility] Nucleated RBC/100 WBC (Bld) [Ratio] 0.2 % 0-5 [facility] Platelet mean volume (Bld) [Entitic vol] 10.2 fL 6.2-12.0 [facility] Platelets (Bld) [#/Vol] 134 10*3/uL 150-450 [facility] No Panel InformationOrdered By: Laine Veras on 03-27-2023 Estimated Creatinine Clearance Calc 46.22 ml/min [facility] Estimated GFR (MDRD) Amer 82 mL/min >60 [facility] Comment on above: GFR Calc Estimated GFR (MDRD) Non-Af Amer 67 mL/min >60 [facility] Comment on above: Non- GFR Calc 27.5 pg 27.0-32.0 [facility] 32.4 g/dL 32-36 [facility] 134 K/mm3 150-450 [facility] 10.2 fl 6.2-12.0 [facility] 0.2 % 0-5 [facility] 2+ [facility] 38.9 SECONDS 11.7-14.9 [facility] 3.9 [facility] 67 mL/min >60 [facility] 82 mL/min >60 [facility] 46.22 ml/min [facility] 29.9 RATIO 10-20 [facility] 3.0 g/dL 2.2-4.2 [facility] 0.8 RATIO 0.9-2.4 [facility] 170 U/L 45-117 [facility] 65 U/L 13-56 [facility] 2.6 mg/dL 1.6-2.6 [facility] 24.0 mmol/L 21.0-32.0 [facility] RBC Auto (Bld) [#/Vol]Ordere d By: Laine Veras on 03-27-2023 RBC (Bld) [#/Vol] 2.87 10*6/uL 4.2-5.4 [facility] Serum or plasma calcium monica urement (mass/volume)Ordered By: Laine Veras on 03-27-2023 Calcium [Mass/Vol] 7.7 mg/dL 8.5-10.1 [facility] Serum or plasma creatinine m easurement (mass/volume)Ordered [...] on 03-27-2023 TSH Qn 0.76 uIU/mL 0.358-3.74 [facility] Serum or plasma urea nitroge n measurement (mass/volume)Ordered By: Laine Veras on 03-27-2023 Urea nitrogen [Mass/Vol] 26 mg/dL 7-18 [facility] Thin prep Papanicolaou smear with manual screeningOrdered By: Laine Veras on 03-27-2023 Thin prep Papanicolaou smear with manual screening 2.3 g/dL 3.2-5.0 [facility] Thin prep Papanicolaou smear with manual screening 27 U/L 15-37 [facility] Thin prep Papanicolaou smear with manual screening 7 5-15 [facility] Absolute lymphocyte countOrd ered By: Martín Cornejo on 03-26-2023 Lymphocytes Auto (Unsp spec) [#/Vol] 1.06 10*3/uL 0.83-4.51 [facility] Automated lymphocyte count a s percentage of total leukocytesOrdered By: Martín Cornejo on 03-26-2023 Lymphocytes/100 WBC Auto (Unsp spec) 6.3 % 19-41 [facility] Basophil percentageOrdered B y: Martín Cornejo on 03-26-2023 Basophil percentage 0 SEEN /hpf 0-5 [facility] Basophils/100 WBC (Bld) 0.1 % 0-1 [facility] Chloride [Moles/Vol] 101 mmol/L 98-107 [facility] Eosinophils/100 WBC (Bld) 0.0 % 0-5 [facility] Glucose [Mass/Vol] 111 mg/dL 74-106 [facility] Comment on above: Fasting Glucose resu lt from 100 to 125 mg/dL suggests IMPAIRED HOMEOSTASIS per A.D.A. criteria. Hemoglobin (Bld) [Mass/Vol] 8.9 g/dL 12.0-15.0 [facility] Monocytes/100 WBC (Bld) 9.6 % 0-10 [facility] Neutrophils (Bld) [#/Vol] 13.6 10*3/uL 2.0-7.7 [facility] Neutrophils/100 WBC (Bld) 80.3 % 47-70 [facility] Potassium [Moles/Vol] 3.6 mmol/L 3.5-5.1 [facility] Sodium [Moles/Vol] 135 mmol/L 136-145 [facility] WBC (Bld) [#/Vol] 16.9 10*3/uL 4.4-11.0 [facility] Bilirubin Test strip Ql (U)O rdered By: Martín Cornejo on 03-26-2023 Bilirubin Ql (U) Negative Negative [facility] Blood manual differential co mment interpretation (narrative result)Ordered By: Martín Cornejo on 03-26-2023 Manual differential comment Donte (Bld) [Interp] SCANNED [facility] Determination of erythrocyte mean corpuscular volume (MCV)Ordered By: Martín Cornejo on 03-26-2023 MCV (RBC) [Entitic vol] 81.5 fL 81-99 [facility] Erythrocyte distribution wid th ratioOrdered By: Martín Cornejo on 03-26-2023 Erythrocyte distribution width (RBC) [Ratio] 19.6 % 11.6-14.6 [facility] Erythrocyte distribution wid th standard deviationOrdered By: Martín Cornejo on 03-26-2023 Erythrocyte distribution width (RBC) [Entitic vol] 48.8 fL 35.1-43.9 [facility] Hematocrit Auto (Bld) [Volum e fraction]Ordered By: Martín Cornejo on 03-26-2023 Hematocrit (Bld) [Volume fraction] 26.8 % 37-47 [facility] Immature granulocytes/100 WB C Auto (Bld)Ordered By: Martín Cornejo on 03-26-2023 Immature granulocytes/100 WBC (Bld) 3.700 % 0.0-0.9 [facility] Comment on above: IG% - Immature Granu locytes (promyelocytes, myelocytes and metamyelocytes) > 1% indicates that a LEFT SHIFT is Present. International normalized rat io (INR) calculationOrdered By: Martín Cornejo on 03-26-2023 INR Coag (PPP) [Relative time] 3.2 {INR} [facility] Ketones Test strip Ql (U)Ord ered By: Martín Cornejo on 03-26-2023 Ketones Ql (U) Negative Negative [facility] Laboratory - Chemistry and C hemistry - challengeOrdered By: Martín Cornejo on 03-26-2023 CO2 [Moles/Vol] 27.0 mmol/L 21.0-32.0 [facility] Natriuretic peptide B (Bld) [Mass/Vol] 322.3 pg/mL 0-100 [facility] Urea nitrogen/Creatinine [Mass ratio] 34.8 mg/mg 10-20 [facility] - CoagulationOrde red By: Martín Cornejo on 03-26-2023 PT Coag (PPP) [Time] 33.3 s 11.7-14.9 [facility] Laboratory - Hematology and Cell countsOrdered By: Martín Cornejo on 03-26-2023 MCH (RBC) [Entitic mass] 27.1 pg 27.0-32.0 [facility] MCHC (RBC) [Mass/Vol] 33.2 g/dL 32-36 [facility] Nucleated RBC/100 WBC (Bld) [Ratio] 0.1 % 0-5 [facility] Platelets (Bld) [#/Vol] 169 10*3/uL 150-450 [facility] Mucus LM Ql (Urine sed)Order ed By: Martín Cornejo on 03-26-2023 Mucus Ql (Urine sed) 0 SEEN /hpf [facility] Nitrite Test strip Ql (U)Ord ered By: Martín Cornejo on 03-26-2023 Nitrite Ql (U) Negative Negative [facility] No Panel InformationOrdered By: Martín Cornejo on 03-26-2023 Urine RBC 0 SEEN /hpf 0-5 [facility] 0 SEEN /hpf 0-5 [facility] Estimated Creatinine Clearance Calc 49.15 ml/min [facility] Estimated GFR (MDRD) Amer 79 mL/min >60 [facility] Comment on above: GFR Calc Estimated GFR (MDRD) Non-Af Amer 66 mL/min >60 [facility] Comment on above: Non- GFR Calc Troponin I High Sensitivity 20 pg/mL 3.0-54.0 [facility] Comment on above: Please Note: New Aubrie t Units and Gender Specific Reference Ranges. For more information see Policy Stat Procedure [place] High Sensitivity Troponin (TNIH) and attachments. 20 pg/mL 3.0-54.0 [facility] 322.3 pg/mL 0-100 [facility] Platelet mean volume Nicholas-Ec ker (Bld) [Entitic vol]Ordered By: Martín Cornejo on 03-26-2023 Platelet mean volume (Bld) [Entitic vol] 9.9 fL 6.2-12.0 [facility] Protein Test strip Ql (U)Ord ered By: Martín Cornejo on 03-26-2023 Protein Ql (U) 30 mg/dl Negative [facility] RBC Auto (Bld) [#/Vol]Ordere d By: Martín Cornejo on 03-26-2023 RBC (Bld) [#/Vol] 3.29 10*6/uL 4.2-5.4 [facility] Review by pathologistOrdered By: Martín Cornejo on 03-26-2023 Pathologist review Donte (Unsp spec) [Interp] Dori urbano [facility] Pathologist review Donte (Unsp spec) [Interp] Reviewed [facility] Comment on above: Previous reported re sult: Dori urbano Edited by: RGOOD on 03/27/23:1255Neutrophilic leukocytosis with left shift.Normocytic anemia.Clinical correlation necessary.Landon Ontiveros M.D. 03/27/23 AMENDED REPORT 03/27/23 1255 PATH REV previously reported as: Dori urbano Serum or plasma calcium monica urement (mass/volume)Ordered By: Martín Cornejo on 03-26-2023 Calcium [Mass/Vol] 8.1 mg/dL 8.5-10.1 [facility] Serum or plasma creatinine m easurement (mass/volume)Ordered [...] 03-26-2023 Urea nitrogen [Mass/Vol] 31 mg/dL 7-18 [facility] Squamous epithelial cells de tection in urine sediment by light microscopyOrdered By: Martín Cornejo on 03-26-2023 Epithelial cells.squamous LM Ql (Urine sed) 0 SEEN /hpf 5-10 [facility] Thin prep Papanicolaou smear with manual screeningOrdered By: Martín Cornejo on 03-26-2023 Thin prep Papanicolaou smear with manual screening 7 5-15 [facility] Urine blood detectionOrdered By: Martín Cornejo on 03-26-2023 RBC Ql (U) 10 /ul Negative [facility] Urine clarityOrdered By: Ryder Cornejo on 03-26-2023 Clarity (U) Clear Clear [facility] Urine color determinationOrd ered By: Martín Cornejo on 03-26-2023 Color (U) Yellow Yellow [facility] Urine glucose detectionOrder ed By: Martín Cornejo on 03-26-2023 Glucose Ql (U) Normal mg/dl Normal [facility] Urine leukocyte esterase det ection by dipstickOrdered By: Martín Cornejo on 03-26-2023 Leukocyte esterase Test strip Ql (U) Negative Negative [facility] Urine pHOrdered By: Martín rebolledo on 03-26-2023 pH (U) 6.5 [pH] 5.0 - 8.0 [facility] Urine sediment bacteria coun t by microscopy (number/high power field)Ordered By: Martín Cornejo on 03-26-2023 Bacteria LM.HPF (Urine sed) [#/Area] 0 /[HPF] None Seen [facility] Urine specific gravity measu rementOrdered By: Martín Cornejo on 03-26-2023 Specific gravity (U) [Rel density] 1.015 1.002-1.03 0 [facility] Urine urobilinogen measureme ntOrdered By: Martín Cornejo on 03-26-2023 Urobilinogen Ql (U) Normal mg/dl Normal [facility] Basic metabolic 2000 panelon 03-25-2023 Anion gap [Moles/Vol] 11 mmol/L Normal 9-18 [facility] Comment on above: Order Comment: Speci men Type: BLOOD SPECIMEN Ordering Facility: [facility] Address: [address] [place] [address] Performed By: #### 2 4321-2 #### [facility] CLIA [id number] 1 [place] [address] [place] Calcium [Mass/Vol] 8.6 mg/dL Normal 8.5-10.2 [facility] Comment on above: Order Comment: Speci men Type: BLOOD SPECIMEN Ordering Facility: [facility] Address: [address] [place] [address] Performed By: #### 2 4321-2 #### [facility] CLIA [id number] 1 [place] [address] [place] Chloride [Moles/Vol] 96 mmol/L Low 97-105 [facility] Comment on above: Order Comment: Speci men Type: BLOOD SPECIMEN Ordering Facility: [facility] Address: [address] [place] [address] Performed By: #### 2 4321-2 #### [facility] CLIA [id number] 1 [place] [address] [place] CO2 [Moles/Vol] 23 mmol/L Normal 22-30 [facility] Comment on above: Order Comment: Speci men Type: BLOOD SPECIMEN Ordering Facility: [facility] Address: [address] [place] [address] Performed By: #### 2 4321-2 #### [facility] CLIA [id number] 1 [place] [address] [place] Creatinine [Mass/Vol] 0.84 mg/dL Normal 0.58-0.96 [facility] Comment on above: Order Comment: Speci men Type: BLOOD SPECIMEN Ordering Facility: [facility] Address: [address] [place] [address] Performed By: #### 2 4321-2 #### [facility] CLIA [id number] 1 [place] [address] [place] Creatinine and Glomerular filtration rate.predicted panel (S/P/Bld) 73 mL/min/1.73m??? Normal >=60 [facility] Comment on above: Order Comment: Renay adkins Type: BLOOD SPECIMEN Ordering Facility: [facility] Address: [address] [place] [address] Result Comment: Meaghan mated Glomerular Filtration Rate [...] GFR. Performed By: #### 2 4321-2 #### [facility] CLIA [id number] [address] [place] [address] [place] Glucose [Mass/Vol] 134 mg/dL High 74-99 [facility] Comment on above: Order Comment: Renay adkins Type: BLOOD SPECIMEN Ordering Facility: [facility] Address: [address] [place] [address] Result Comment: The [place] [employer] (ADA) provides guidance for cutoff [...] Standards of Medical Care in Diabetes 2016, [place] [employer]. Diabetes Care. 2016.39(Suppl 1). Performed By: #### 2 4321-2 #### [facility] CLIA [id number] 1 [place] [address] [place] Potassium [Moles/Vol] 3.9 mmol/L Normal 3.7-5.1 [facility] Comment on above: Order Comment: Speci men Type: BLOOD SPECIMEN Ordering Facility: [facility] Address: [address] [place] [address] Performed By: #### 2 4321-2 #### [facility] CLIA [id number] [address] STATES OF [facility] Sodium [Moles/Vol] 130 mmol/L Low 136-144 [facility] Comment on above: Order Comment: Speci men Type: BLOOD SPECIMEN Ordering Facility: [facility] Address: [address] [place] [address] Performed By: #### 2 4321-2 #### [facility] CLIA [id number] [address] [place] [facility] Urea nitrogen [Mass/Vol] 27 mg/dL High 7-21 [facility] Comment on above: Order Comment: Speci men Type: BLOOD SPECIMEN Ordering Facility: [facility] Address: [address] [place] [address] Performed By: #### 2 4321-2 #### [facility] CLIA [id number] [address] [place] CBC panel Auto (Bld)on 03-25 Erythrocyte distribution width (RBC) [Ratio] 17.8 % High 11.5-15.0 [facility] Comment on above: Order Comment: Speci men Type: BLOOD SPECIMEN Ordering Facility: [facility] Address: [address] [place] [address] Performed By: #### 1 4196-0, 19584-7 #### [facility] CLIA [id number] [address] [place] Hematocrit (Bld) [Volume fraction] 26.8 % Low 36.0-46.0 [facility] Comment on above: Order Comment: Speci men Type: BLOOD SPECIMEN Ordering Facility: [facility] Address: [address] [place] [address] Performed By: #### 1 4196-0, 98861-3 #### [facility] CLIA [id number] [address] Hemoglobin (Bld) [Mass/Vol] 8.9 g/dL Low 11.5-15.5 [facility] Comment on above: Order Comment: Speci men Type: BLOOD SPECIMEN Ordering Facility: [facility] Address: [address] [place] [address] Performed By: #### 1 4196-0, 08933-0 #### [facility] CLIA [id number] [address] MCH (RBC) [Entitic mass] 27.1 pg Normal 26.0-34.0 [facility] Comment on above: Order Comment: Speci men Type: BLOOD SPECIMEN Ordering Facility: [facility] Address: [address] [place] [address] Performed By: #### 1 4196-0, 07956-5 #### [facility] CLIA [id number] [address] [place] [address] MCHC (RBC) [Mass/Vol] 33.2 g/dL Normal 30.5-36.0 [facility] Comment on above: Order Comment: Speci men Type: BLOOD SPECIMEN Ordering Facility: [facility] Address: [address] [place] [address] Performed By: #### 1 4196-0, 91261-4 #### [facility] CLIA [id number] [address] [place] [address] MCV (RBC) [Entitic vol] 81.5 fL Normal 80.0-100.0 [facility] Comment on above: Order Comment: Speci men Type: BLOOD SPECIMEN Ordering Facility: [facility] Address: [address] [place] [address] Performed By: #### 1 4196-0, 77752-4 #### [facility] CLIA [id number] [address] Nucleated RBC (Bld) [#/Vol] 0.04 10*3/uL High <0.01 [facility] Comment on above: Order Comment: Speci men Type: BLOOD SPECIMEN Ordering Facility: [facility] Address: [address] [place] [address] Performed By: #### 1 4196-0, 78788-8 #### [facility] CLIA [id number] [address] [place] Platelet mean volume (Bld) [Entitic vol] 10.0 fL Normal 9.0-12.7 [facility] Comment on above: Order Comment: Speci men Type: BLOOD SPECIMEN Ordering Facility: [facility] Address: [address] [place] [address] Performed By: #### 1 4196-0, 96624-5 #### [facility] CLIA [id number] [address] [place] Platelets (Bld) [#/Vol] 172 10*3/uL Normal 150-400 [facility] Comment on above: Order Comment: Speci men Type: BLOOD SPECIMEN Ordering Facility: [facility] Address: [address] [place] [address] Performed By: #### 1 4196-0, 09976-4 #### [facility] CLIA [id number] [address] [place] RBC (Bld) [#/Vol] 3.29 10*6/uL Low 3.90-5.20 [facility] Comment on above: Order Comment: Speci men Type: BLOOD SPECIMEN Ordering Facility: [facility] Address: [address] [place] [address] Performed By: #### 1 4196-0, 73795-9 #### [facility] CLIA [id number] [address] [place] WBC (Bld) [#/Vol] 13.55 10*3/uL High 3.70-11.00 [facility] Comment on above: Order Comment: Speci men Type: BLOOD SPECIMEN Ordering Facility: [facility] Address: [address] [place], [place] [address] Performed By: #### 1 4196-0, 83734-7 #### [id number] [address] OF [facility] CNDSon 03-25-2023 CNDS HNO ID: [id number] Author: SHARAN RIVAS MD Service: Hospital Medicine [...] MD Consulting: Alexi Marin MD Primary Service: [facility] Consulting: Geno Camacho MD REASON FOR [...] pneumatosis intestinalis and patient was transferred to [facility]. Pulmonology was consulted and patient was [...] (Axillary) Resp 20 Ht 160 cm (5' 3) Wt 57.8 kg (127 lb 6.8 oz) [...] you take (more content not included)... Normal [facility] CONSULT PROGon 03-25-2023 CONSULT PROG HNO ID: [id number] Author: BRISSA LIMA RPh Service: Pharmacy Author [...] warfarin 5 mg once daily Managed at [facility] 03/19: INR on arrival to [facility] was 9. She was given Vitamin K [...] and metronidazole last doses are scheduled for / evening. Patient?s INR, condition, and signs/symptoms of bleeding will be monitored daily. Recommended post discharge dosing: TBD; may need lower dose Thank you for allowing me to participate in the care for this patient. Current Laboratory Values Recent Labs 03/25/238 03/24/23 0158 03/23/23 0231 03/22/23 0325 INR 2.0* 2.0* 2.1* 2.5* Recent Labs 03/25/238 03/24/23 0158 03/23/23 0235 03/22/23 0325 HB [...] (SPORANOX) 200 mg ORAL BID phenol 1 Stephen (CHLORASEPTIC) 1 Stephen MUCOUS MEMBRANE (TOPICAL MOUTH AND THROAT) q [...] education: No- home med Signature: Brissa Lima lobo Pager/Extension: [phone] Normal [facility] NURSING PROGon 03-25-2023 NURSING PROG HNO ID: [id number] Author: ARMEN FERNANDEZ RN Service: Nursing Author Type: Registered Nurse Type: Nursing Progress Note Filed: 03/25/2023 14:31 Note Text: This RN spoke with Dr. Rivas regarding sepsis BPA alert, no new orders at this time, pt remains stable. Normal [facility] PT panel Coag (PPP)on 2023 INR Coag (PPP) [Relative time] 2.0 {INR} High 0.9-1.3 [facility] Comment on above: Order Comment: Speci men Type: BLOOD SPECIMEN Ordering Facility: [facility] Address: [address] [place] [address] Result Comment: Halle min K Antagonist (VKA) Therapeutic Range: INR 2 to 3 (Target INR of 2.5) Note: For patients treated with VKA drugs, such as warfarin, the [place] [employer] 2012 Guideline recommends [...] Chest 2012, 141:7S-47S Mitzi TOLEDO et al. [facility] 2017, 70: 252-289 Performed By: #### 1 4196-0, 56657-3 #### [facility] CLIA [id number] [address] [place] PT Coag (PPP) [Time] 20.0 s High 9.7-13.0 [facility] Comment on above: Order Comment: Renay adkins Type: BLOOD SPECIMEN Ordering Facility: [facility] Address: [address] [place] [address] Performed By: #### 1 4196-0, 46438-5 #### [facility] CLIA [id number] [address] [place] [address] [place] Basic metabolic 2000 panelon 03-24-2023 Anion gap [Moles/Vol] 10 mmol/L Normal 9-18 [facility] Comment on above: Order Comment: Renay adkins Type: BLOOD SPECIMEN Ordering Facility: [facility] Address: [address] [place] [address] Performed By: #### 1 4196-0, 03404-7 #### [facility] CLIA [id number] [address] [place] Calcium [Mass/Vol] 8.8 mg/dL Normal 8.5-10.2 [facility] Comment on above: Order Comment: Renay adkins Type: BLOOD SPECIMEN Ordering Facility: [facility] Address: [address] [place] [address] Performed By: #### 1 4196-0, 58877-9 #### [facility] CLIA [id number] [address] [place] Chloride [Moles/Vol] 98 mmol/L Normal 97-105 [facility] Comment on above: Order Comment: Speci men Type: BLOOD SPECIMEN Ordering Facility: [facility] Address: [address] [place] [address] Performed By: #### 1 4196-0, 98192-9 #### [facility] CLIA [id number] [address] CO2 [Moles/Vol] 24 mmol/L Normal 22-30 [facility] Comment on above: Order Comment: Speci men Type: BLOOD SPECIMEN Ordering Facility: [facility] Address: [address] [place] [address] Performed By: #### 1 4196-0, 03150-1 #### [facility] CLIA [id number] [address] Creatinine [Mass/Vol] 0.89 mg/dL Normal 0.58-0.96 [facility] Comment on above: Order Comment: Speci men Type: BLOOD SPECIMEN Ordering Facility: [facility] Address: [address] [place] [address] Performed By: #### 1 4196-0, 65292-2 #### [facility] CLIA [id number] [address] [place] [address] Creatinine and Glomerular filtration rate.predicted panel (S/P/Bld) 68 mL/min/1.73m??? Normal >=60 [facility] Comment on above: Order Comment: Speci men Type: BLOOD SPECIMEN Ordering Facility: [facility] Address: [address] [place] [address] Result Comment: Meaghan mated Glomerular Filtration Rate [...] actual GFR. Performed By: #### 1 4196-0, 21141-6 #### [facility] CLIA [id number] [address] Glucose [Mass/Vol] 125 mg/dL High 74-99 [facility] Comment on above: Order Comment: Renay adkins Type: BLOOD SPECIMEN Ordering Facility: [facility] Address: [address] [place] [address] Result Comment: The [place] Diabetes [employer] (ADA) provides guidance for cutoff [...] Standards of Medical Care in Diabetes 2016, [place] [employer]. Diabetes Care. 2016.39(Suppl 1). Performed By: #### 1 4196-0, 35697-5 #### [facility] CLIA [id number] [address] [place] [address] [place] Potassium [Moles/Vol] 4.1 mmol/L Normal 3.7-5.1 [facility] Comment on above: Order Comment: Renay adkins Type: BLOOD SPECIMEN Ordering Facility: [facility] Address: [address] [place] [address] Performed By: #### 1 4196-0, 42047-5 #### [facility] CLIA [id number] [address] [place] [address] [place] Sodium [Moles/Vol] 132 mmol/L Low 136-144 [facility] Comment on above: Order Comment: Renay adkins Type: BLOOD SPECIMEN Ordering Facility: [facility] Address: [address] [place] [address] Performed By: #### 1 4196-0, 20544-5 #### [facility] CLIA [id number] [address] [place] [address] [place] Urea nitrogen [Mass/Vol] 32 mg/dL High 7-21 [facility] Comment on above: Order Comment: Speci men Type: BLOOD SPECIMEN Ordering Facility: [facility] Address: [address] [place] [address] Performed By: #### 1 4196-0, 56449-4 #### [facility] CLIA [id number] [address] [place] [address] [place] [facility] C diff Tox gens Stl Ql GWEN+p robeon 03-24-2023 C. difficile toxin genes GWEN+probe Ql (Stl) Negative Normal Negative for C. difficile toxin by PCR [facility] Comment on above: Order Comment: Speci men Type: STOOL SPECIMEN Ordering Facility: [facility] Address: [address] [place] [address] Performed By: #### 5 4067-4 #### [facility] CLIA [id number] [address] [place] [address] [place] [facility] CBC panel Auto (Bld)on 03-24 Erythrocyte distribution width (RBC) [Ratio] 17.2 % High 11.5-15.0 [facility] Comment on above: Order Comment: Speci men Type: BLOOD SPECIMEN Ordering Facility: [facility] Address: [address] [place] [address] Performed By: #### 1 4196-0, 01054-3 #### [facility] CLIA [id number] [address] [place] [address] [place] Hematocrit (Bld) [Volume fraction] 26.5 % Low 36.0-46.0 [facility] Comment on above: Order Comment: Speci men Type: BLOOD SPECIMEN Ordering Facility: [facility] Address: [address] [place] [address] Performed By: #### 1 4196-0, 58510-7 #### [facility] CLIA [id number] [address] [place] [address] [place] Hemoglobin (Bld) [Mass/Vol] 9.1 g/dL Low 11.5-15.5 [facility] Comment on above: Order Comment: Speci men Type: BLOOD SPECIMEN Ordering Facility: [facility] Address: [address] [place] [address] Performed By: #### 1 4196-0, 31815-4 #### [facility] CLIA [id number] [address] MCH (RBC) [Entitic mass] 27.4 pg Normal 26.0-34.0 [facility] Comment on above: Order Comment: Speci men Type: BLOOD SPECIMEN Ordering Facility: [facility] Address: [address] [place] [address] Performed By: #### 1 4196-0, 46467-6 #### [facility] CLIA [id number] [address] MCHC (RBC) [Mass/Vol] 34.3 g/dL Normal 30.5-36.0 [facility] Comment on above: Order Comment: Speci men Type: BLOOD SPECIMEN Ordering Facility: [facility] Address: [address] [place] [address] Performed By: #### 1 4196-0, 43081-4 #### [facility] CLIA [id number] [address] MCV (RBC) [Entitic vol] 79.8 fL Low 80.0-100.0 [facility] Comment on above: Order Comment: Speci men Type: BLOOD SPECIMEN Ordering Facility: [facility] Address: [address] [place] [address] Performed By: #### 1 4196-0, 05498-2 #### [facility] CLIA [id number] [address] Nucleated RBC (Bld) [#/Vol] 10*3/uL Normal <0.01 [facility] Comment on above: Order Comment: Speci men Type: BLOOD SPECIMEN Ordering Facility: [facility] Address: [address] [place] [address] Performed By: #### 1 4196-0, 37731-8 #### [facility] CLIA [id number] [address] Platelet mean volume (Bld) [Entitic vol] 10.6 fL Normal 9.0-12.7 [facility] Comment on above: Order Comment: Speci men Type: BLOOD SPECIMEN Ordering Facility: [facility] Address: [address] [place] [address] Performed By: #### 1 4196-0, 39031-7 #### [facility] CLIA [id number] [address] [place] Platelets (Bld) [#/Vol] 167 10*3/uL Normal 150-400 [facility] Comment on above: Order Comment: Speci men Type: BLOOD SPECIMEN Ordering Facility: [facility] Address: [address] [place] [address] Performed By: #### 1 4196-0, 90950-7 #### [facility] CLIA [id number] [address] [place] [address] RBC (Bld) [#/Vol] 3.32 10*6/uL Low 3.90-5.20 [facility] Comment on above: Order Comment: Speci men Type: BLOOD SPECIMEN Ordering Facility: [facility] Address: [address] [place] [address] Performed By: #### 1 4196-0, 28539-9 #### [facility] CLIA [id number] [address] [place] [address] STATES OF [facility] WBC (Bld) [#/Vol] 12.21 10*3/uL High 3.70-11.00 [facility] Comment on above: Order Comment: Speci men Type: BLOOD SPECIMEN Ordering Facility: [facility] Address: [address] [place] [address] Performed By: #### 1 4196-0, 09618-4 #### [facility] CLIA [id number] [address] OF [facility] CONSULT PROGon 03-24-2023 CONSULT PROG HNO ID: [id number] Author: BRISSA LIMA RPh Service: Pharmacy Author [...] warfarin 5 mg once daily Managed at [facility] 03/19: INR on arrival to [facility] was 9. She was given Vitamin K [...] Laboratory Values Recent Labs 03/24/23 0158 03/23/23 0231 03/22/23 0325 03/21/23 0425 INR 2.0* 2.1* 2.5* [...] (SPORANOX) 200 mg ORAL BID phenol 1 Stephen (CHLORASEPTIC) 1 Stephen MUCOUS MEMBRANE (TOPICAL MOUTH AND THROAT) q [...] home med Signature: Brissa Lima [facility] Pager/Extension: [phone] Normal [facility] PT panel Coag (PPP)on 2023 INR Coag (PPP) [Relative time] 2.0 {INR} High 0.9-1.3 [facility] Comment on above: Order Comment: Renay adkins Type: BLOOD SPECIMEN Ordering Facility: [facility] Address: [address] [place] [address] Result Comment: Halle min K Antagonist (VKA) Therapeutic Range: INR 2 to 3 (Target INR of 2.5) Note: For patients treated with VKA drugs, such as warfarin, the [employer] 2012 Guideline recommends [...] Chest 2012, 141:7S-47S Mitzi TOLEDO, et al. [facility] 2017, 70: 252-289 Performed By: #### 1 4196-0, 36253-0 #### [facility] CLIA [id number] [address] STATES OF [place] PT Coag (PPP) [Time] 19.7 s High 9.7-13.0 [facility] Comment on above: Order Comment: Renay adkins Type: BLOOD SPECIMEN Ordering Facility: [facility] Address: [address] [place] [address] Performed By: #### 1 4196-0, 34072-6 #### [facility] CLIA [id number] [address] STATES OF [place] CBC W Ordered Manual Differe ntial panel (Bld)on 03-23-2023 ANISOCYTOSIS Present Normal [facility] Comment on above: Order Comment: Speci men Type: BLOOD SPECIMEN Ordering Facility: [facility] Address: [address] [place] [address] Performed By: #### 1 4196-0, 97417-4 #### [facility] CLIA [id number] [address] STATES [place] Basophils (Bld) [#/Vol] 0.00 10*3/uL Normal <0.11 [facility] Comment on above: Order Comment: Speci men Type: BLOOD SPECIMEN Ordering Facility: [facility] Address: [address] [place] [address] Performed By: #### 1 4196-0, 01171-2 #### [facility] CLIA [id number] [address] Basophils/100 WBC (Bld) 0.0 % Normal [place] Comment on above: Order Comment: Speci men Type: BLOOD SPECIMEN Ordering Facility: [facility] Address: [address] [place] [address] Performed By: #### 1 4196-0, 11342-3 #### [facility] CLIA [id number] [address] OF [facility] Differential cell count method Nom (Bld) Manual Normal [facility] Comment on above: Order Comment: Speci men Type: BLOOD SPECIMEN Ordering Facility: [facility] Address: [address] [place] [address] Performed By: #### 1 4196-0, 10527-6 #### [facility] CLIA [id number] [address] STATES [place] Eosinophils (Bld) [#/Vol] 0.00 10*3/uL Normal <0.46 [facility] Comment on above: Order Comment: Speci men Type: BLOOD SPECIMEN Ordering Facility: [facility] Address: [facility] [place] [address] Performed By: #### 1 4196-0, 87244-4 #### [facility] CLIA [id number] [address] Eosinophils/100 WBC (Bld) 0.0 % Normal [facility] Comment on above: Order Comment: Speci men Type: BLOOD SPECIMEN Ordering Facility: [facility] Address: [address] [place] [address] Performed By: #### 1 4196-0, 57755-0 #### [facility] CLIA [id number] [address] OF [facility] Erythrocyte distribution width (RBC) [Ratio] 16.6 % High 11.5-15.0 [facility] Comment on above: Order Comment: Speci men Type: BLOOD SPECIMEN Ordering Facility: [facility] Address: [address] [place] [address] Performed By: #### 1 4196-0, 64676-2 #### [facility] CLIA [id number] [address] [place] [address] Hematocrit (Bld) [Volume fraction] 22.8 % Low 36.0-46.0 [facility] Comment on above: Order Comment: Speci men Type: BLOOD SPECIMEN Ordering Facility: [facility] Address: [address] [place] [address] Performed By: #### 1 4196-0, 49119-2 #### [facility] CLIA [id number] [address] [place] [address] STATES [place] Hemoglobin (Bld) [Mass/Vol] 7.7 g/dL Low 11.5-15.5 [facility] Comment on above: Order Comment: Speci men Type: BLOOD SPECIMEN Ordering Facility: [facility] Address: [address] [place] [address] Performed By: #### 1 4196-0, 87091-8 #### [facility] CLIA [id number] [address] OF [place] Lymphocytes (Bld) [#/Vol] 0.88 10*3/uL Low 1.00-4.00 [facility] Comment on above: Order Comment: Speci men Type: BLOOD SPECIMEN Ordering Facility: [facility] Address: [facility] [place] [address] Performed By: #### 1 4196-0, 36264-0 #### [facility] CLIA [id number] [address] Lymphocytes/100 WBC (Bld) 7.0 % Normal [facility] Comment on above: Order Comment: Speci men Type: BLOOD SPECIMEN Ordering Facility: [facility] Address: [address] [place] [address] Performed By: #### 1 4196-0, 06326-9 #### [facility] CLIA [id number] [address] [place] [address] STATES OF [facility] MCH (RBC) [Entitic mass] 27.3 pg Normal 26.0-34.0 [facility] Comment on above: Order Comment: Speci men Type: BLOOD SPECIMEN Ordering Facility: [facility] Address: [address] [place] [address] Performed By: #### 1 4196-0, 33730-3 #### [facility] CLIA [id number] [address] MCHC (RBC) [Mass/Vol] 33.8 g/dL Normal 30.5-36.0 [facility] Comment on above: Order Comment: Speci men Type: BLOOD SPECIMEN Ordering Facility: [facility] Address: [address] [place] [address] Performed By: #### 1 4196-0, 53624-3 #### [facility] CLIA [id number] [address] MCV (RBC) [Entitic vol] 80.9 fL Normal 80.0-100.0 [facility] Comment on above: Order Comment: Speci men Type: BLOOD SPECIMEN Ordering Facility: [facility] Address: [address] [place] [address] Performed By: #### 1 4196-0, 74767-7 #### [facility] CLIA [id number] [address] STATES [place] META% 2.0 % Normal [facility] Comment on above: Order Comment: Speci men Type: BLOOD SPECIMEN Ordering Facility: [facility] Address: [address] [place] [address] Performed By: #### 1 4196-0, 89481-3 #### [facility] CLIA [id number] [address] [place] Monocytes (Bld) [#/Vol] 1.00 10*3/uL High <0.87 [facility] Comment on above: Order Comment: Speci men Type: BLOOD SPECIMEN Ordering Facility: [facility] Address: [address] [place] [address] Performed By: #### 1 4196-0, 87276-9 #### [facility] CLIA [id number] [address] [place] [address] OF [place] Monocytes/100 WBC (Bld) 8.0 % Normal [facility] Comment on above: Order Comment: Speci men Type: BLOOD SPECIMEN Ordering Facility: [facility] Address: [address] [place] [address] Performed By: #### 1 4196-0, 27161-6 #### [facility] CLIA [id number] [address] [place] [address] OF [place] MYELO% 1.0 % Normal [facility] Comment on above: Order Comment: Speci men Type: BLOOD SPECIMEN Ordering Facility: [facility] Address: [address] [place] [address] Performed By: #### 1 4196-0, 47699-0 #### [facility] CLIA [id number] [address] [place] Neutrophils (Bld) [#/Vol] 10.25 10*3/uL High 1.45-7.50 [facility] Comment on above: Order Comment: Speci men Type: BLOOD SPECIMEN Ordering Facility: [facility] Address: [address] [place] [address] Performed By: #### 1 4196-0, 48785-4 #### [facility] CLIA [id number] [address] Neutrophils/100 WBC (Bld) 82.0 % Normal [facility] Comment on above: Order Comment: Speci men Type: BLOOD SPECIMEN Ordering Facility: [facility] Address: [address] [place] [address] Performed By: #### 1 4196-0, 07863-8 #### [facility] CLIA [id number] [address] Nucleated RBC (Bld) [#/Vol] 10*3/uL Normal <0.01 [facility] Comment on above: Order Comment: Speci men Type: BLOOD SPECIMEN Ordering Facility: [facility] Address: [address] [place] [address] Performed By: #### 1 60, 76505-4 #### [facility] CLIA [id number] [address] [place] [address] STATES [facility] Nucleated RBC/100 WBC (Bld) [Ratio] 0.0 /100 WBC Normal [facility] Comment on above: Order Comment: Speci men Type: BLOOD SPECIMEN Ordering Facility: [facility] Address: [address] [place] [address] Performed By: #### 1 4196, 86446-2 #### [facility] CLIA [id number] [address] [place] [address] [place] Ovalocytes LM Ql (Bld) Few Normal [facility] Comment on above: Order Comment: Speci men Type: BLOOD SPECIMEN Ordering Facility: [facility] Address: [address] [place] [address] Performed By: #### 1 4196-0, 25357-3 #### [facility] CLIA [id number] [address] [place] Platelet mean volume (Bld) [Entitic vol] 10.5 fL Normal 9.0-12.7 [facility] Comment on above: Order Comment: Speci men Type: BLOOD SPECIMEN Ordering Facility: [facility] Address: [address] [place] [address] Performed By: #### 1 4196-0, 56099-4 #### [facility] CLIA [id number] [address] [place] Platelets (Bld) [#/Vol] 157 10*3/uL Normal 150-400 [facility] Comment on above: Order Comment: Speci men Type: BLOOD SPECIMEN Ordering Facility: [facility] Address: [address] [place] [address] Performed By: #### 1 4196-0, 38727-7 #### [facility] CLIA [id number] [address] [place] Platelets Estimate (Bld) [#/Vol] Adequate Normal [facility] Comment on above: Order Comment: Speci men Type: BLOOD SPECIMEN Ordering Facility: [facility] Address: [address] [place] [address] Performed By: #### 1 4196-0, 40906-1 #### [facility] CLIA [id number] [address] [place] Polychromasia LM Ql (Bld) Slight Normal [facility] Comment on above: Order Comment: Speci men Type: BLOOD SPECIMEN Ordering Facility: [facility] Address: [address] [place] [address] Performed By: #### 1 4196-0, 11843-9 #### [facility] CLIA [id number] [address] [place] RBC (Bld) [#/Vol] 2.82 10*6/uL Low 3.90-5.20 [facility] Comment on above: Order Comment: Speci men Type: BLOOD SPECIMEN Ordering Facility: [facility] Address: [address] [place] [address] Performed By: #### 1 4196-0, 15101-4 #### [facility] CLIA [id number] [address] OF [facility] RED CELL MORPH Reviewed: see result s of individual morphologies Normal [facility] Comment on above: Order Comment: Speci men Type: BLOOD SPECIMEN Ordering Facility: [facility] Address: [address] [place] [address] Performed By: #### 1 4196-0, 59403-9 #### [facility] CLIA [id number] [address] OF [facility] WBC (Bld) [#/Vol] 12.50 10*3/uL High 3.70-11.00 [facility] Comment on above: Order Comment: Speci men Type: BLOOD SPECIMEN Ordering Facility: [facility] Address: [address] [place] [address] Performed By: #### 1 4196-0, 71927-8 #### [facility] CLIA [id number] [address] 03-23-2023 CNPN Telephone (AKAYDEED) HAYDEE BUSTAMANTE ([id number]) 1945 F Date Time Provider Department 03/23/23 RACHELLE LEONARD During your visit today, we recorded the following information about you: Rachelle Leonard, GATE CLERK.TREE DOCTOR 03/23/2023 5:17 PM Signed Please schedule patient to follow with Dr. Hart in 2 months. Thank you Gema Castellanos 03/26/2023 8:01 AM Signed Appointment mailed to pt Gema Castellanos Allergies As of Date: 03/23/2023 Noted Allergy Reaction PENICILLINS 01/04/2005 4 - Hives Date Reviewed: 03/21/2023 Reviewed by: Lilia Olivas RN - Fully Assessed Reason for Visit: [...] (FLONASE) 50 mcg/actuation nasal spray Use 1 Stephen in each nostril once daily. - pantoprazole DR (PROTONIX) 40 mg tablet Take 1 tablet by mouth once daily. - albuterol HFA (PROAIR HFA) 90 mcg/actuation inhaler Inhale 2 Puffs as instructed every 4 hours as needed. - vit A,C,X-Edoe-Oebdgg (OCUVITE PRESERVISION) 2,148 mcg-113 mg-45 mg-17.4mg tab [...] by this patient by: PATIENT Muna Harris (Social Media Marketing Specialist) [facility] for senior living medications. 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 Normal [facility] CONSULTon 03-23-2023 CONSULT HNO ID: [id number] Author: CHARLOTTE LAZO MD Service: Cardiovascular Medicine [...] Diverticulosis DVT, recurrent, lower extremity, acute ([facility]) 12/10/2014 Esophageal reflux Hiatal hernia 02/25/2018 Hypertension Lung nodule Personal history of unspecified urinary disorder Rheumatoid arthritis involving multiple sites with positive rheumatoid factor ([facility]) 03/07/2015 Dr. Hurley ([facility]) Unspecified hemorrhoids without mention of complication Hemorrhoids [...] SPINE FUSN,POST INTERBODY 2011 Dr. Armando at [facility]. Diskectomy and laminectomy PAST SURGICAL HISTORY [...] nasal spray No Yes Sig: Use 1 Stephen in each nostril once daily. gabapentin (NEURONTIN) [...] needed. Keagan (more content not included)... Normal [facility] CONSULT PROGodeshawn 03-23-2023 CONSULT PROG HNO ID: [id number] Author: DANY BECKWITH RPh Service: Pharmacy Author Type: Pharmacist Type: Consult Progress Note Filed: 03/23/2023 17:00 Note Text: PHARMACY ANTICOAGULATION CONSULT PATIENT NAME: Haydee Bustamante DATE of SERVICE: 03/23/2023 TIME of SERVICE: 4:06 PM Indication for Anticoagulation: DVT Goal INR: 2.0 to 3.0 Expected Duration of Therapy: Indefinite Assessment: New Start: No Home Dose: Warfarin 5mg once daily Managed at [facility] 03/19: INR on arrival to [facility] was 9. She was given Vitamin K [...] patient. Current Laboratory Values Recent Labs 03/23/23 02303/22/235 03/21/23 0425 03/20/23 1110 INR 2.1* 2.5* 3.9* 4.7* Recent Labs 03/23/23 0235 03/22/2332403/21/23 04203/20/23 0416 HB 7.7* 8.1* 8.6* 8.1* HCT [...] (SPORANOX) 200 mg ORAL BID phenol 1 Stephen (CHLORASEPTIC) 1 Stephen MUCOUS MEMBRANE (TOPICAL MOUTH AND THROAT) q [...] patient received education: No Signature: Dany Beckwith RPh Pager/Extension: [phone] [facility] CONSULT PROG HNO ID: [id number] Author: RACHELLE LEONARD APRN.TREE DOCTOR Service: Infectious Disease Author Type: Nurse Practitioner Type: Consult Progress Note Filed: 03/23/2023 17:10 Note Text: PROGRESS NOTE INFECTIOUS DISEASE BRIEF SUMMARY: 77-year-old female history of rheumatoid arthritis on Humira and methotrexate, 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 COVID-positive -Positive at [facility], negative at [facility] 4. RA on Humira and methotrexate [...] (SPORANOX) 200 mg ORAL BID phenol 1 Stephen (CHLORASEPTIC) 1 Stephen MUCOUS MEMBRANE (TOPICAL MOUTH AND THROAT) q [...] rhonchi, ral (more content not included)... Normal [facility] NURSING PROGon 03-23-2023 NURSING PROG HNO ID: [id number] Author: JOHANNA CAPPS, RN Service: ? Author Type: Registered Nurse Type: Nursing Progress Note Filed: 03/23/2023 18:59 Note Text: 1700: Pt refused Warfarin dose due to concerns for INR levels. [employer] notified; plan of care ongoing. Normal [facility] PATHOLOGIST INTERPRETATION C BC/DIFFon 03-23-2023 Recording Studio Intern review Donte (Unsp spec) [Interp] Reviewed by Jamarcus Blue MD [facility] Comment on above: Order Comment: Renay adkins Type: BLOOD SPECIMEN Ordering Facility: [facility] Address: [address] [place] [address] Performed By: #### 1 4196-0, 22265-2 #### [facility] CLIA [id number] [address] [place] [address] STAFF REVIEW, CBCDIF Normal [facility] Comment on above: Order Comment: Renay adkins Type: BLOOD SPECIMEN Ordering Facility: [facility] Address: [address] [place] [address] Result Comment: Norm ocytic anemia with slight polychromasia and absolute neutrophilic leukocytosis with left shift. Performed By: #### 1 4196-0, 60634-9 #### [facility] CLIA [id number] [address] PT panel Coag (PPP)on 2023 INR Coag (PPP) [Relative time] 2.1 {INR} High 0.9-1.3 [facility] Comment on above: Order Comment: Renay adkins Type: BLOOD SPECIMEN Ordering Facility: [facility] Address: [address] [place] [address] Result Comment: Halle min K Antagonist (VKA) Therapeutic Range: INR 2 to 3 (Target INR of 2.5) Note: For patients treated with VKA drugs, such as warfarin, the [employer] 2012 Guideline recommends [...] 70: 252-289 Performed By: #### 1 4196-0, 66783-2 #### [facility] CLIA [id number] [address] OF [facility] PT Coag (PPP) [Time] 21.0 s High 9.7-13.0 [facility] Comment on above: Order Comment: Speci men Type: BLOOD SPECIMEN Ordering Facility: [facility] Address: [address] [place] [address] Performed By: #### 1 4196-0, 53674-5 #### [facility] CLIA [id number] [address] THERAPY NTon 03-23-2023 THERAPY NT HNO ID: [id number] Author: UMANG EASLEY, PT Service: Physical Therapy Author Type: Physical Therapist Type: Therapy (PT/OT/Speech/Resp) Filed: 03/23/2023 15:14 Note Text: Physical Therapy Evaluation Summary SERVICE DATE: 03/23/2023 SERVICE TIME: 1340 to 1355 ROOM: [place] [address] PT 6 Clicks Score: 22 DISCHARGE RECOMMENDATIONS [...] Skilled Need TREATMENT INTERVENTIONS Evaluation $ Evaluation-Low (22939) Billed Units: 1 unit Skilled Treatment Time [...] March 23, 2023 TIME: 3:13 PM Normal [facility] THERAPY NT HNO ID: [id number] Author: LORI SHORT OTR/L Service: Occupational Therapy Author Type: Occupational Therapist Type: Therapy (PT/OT/Speech/Resp) Filed: 03/23/2023 11:43 Note Text: Occupational Therapy Evaluation Summary SERVICE DATE: 03/23/2023 SERVICE TIME: 08 to 09 ROOM: [place] [address] OT 6 Clicks Score: 22 DISCHARGE RECOMMENDATIONS [...] daily living (ADL) TREATMENT INTERVENTIONS Evaluation, Self Assisted Management (88082) Timed Code Treatment (minutes): 8 Skilled Treatment Time (minutes): 23 $ Evaluation - Low (48318) Billed Units: 1 unit Self Assisted Management (77656) Treatment Minutes: 8 $ Self Assisted Management (05760) Billed Units: 1 unit TRAINING AND EDUCATION [...] Bathing Training, Cognition Intervention, Dressing Training SIGNATURE: LISA Burgess/Cabrera PATIENT NAME: Haydee Bustamante DATE: March 23, 2023 TIME: 11:40 AM Normal [facility] ALLIED HEALTHon 03-22-2023 ALLIED HEALTH HNO ID: [id number] Author: TIMUR HERNANDEZ RT(R) Service: Radiology Author Type: Tube Coater Type: Allied Health Filed: 03/22/2023 09:43 Note [...] PATIENT PRESENTS WITH AN IMPLANTABLE OR ATTACHED CO FOUNDER AND CTO: No ALLERGIES: Reviewed and unchanged CONTRAST ALLERGY: [...] March 22, 2023 TIME: 9:43 AM Normal [facility] CBC panel Auto (Bld)on 03-22 Erythrocyte distribution width (RBC) [Ratio] 16.0 % High 11.5-15.0 [facility] Comment on above: Order Comment: Speci men Type: BLOOD SPECIMEN Ordering Facility: [facility] Address: [address] [place] [address] Performed By: #### 1 4196-0, 51305-4 #### [facility] CLIA [id number] [address] [place] [address] Hematocrit (Bld) [Volume fraction] 23.1 % Low 36.0-46.0 [facility] Comment on above: Order Comment: Speci men Type: BLOOD SPECIMEN Ordering Facility: [facility] Address: [address] [place] [address] Performed By: #### 1 4196-0, 17887-6 #### [facility] CLIA [id number] [address] OF [facility] Hemoglobin (Bld) [Mass/Vol] 8.1 g/dL Low 11.5-15.5 [facility] Comment on above: Order Comment: Speci men Type: BLOOD SPECIMEN Ordering Facility: [facility] Address: [address] [place] [address] Performed By: #### 1 4196-0, 42719-0 #### [facility] CLIA [id number] [address] MCH (RBC) [Entitic mass] 27.4 pg Normal 26.0-34.0 [facility] Comment on above: Order Comment: Speci men Type: BLOOD SPECIMEN Ordering Facility: [facility] Address: [address] [place] [address] Performed By: #### 1 4196-0, 65624-8 #### [facility] CLIA [id number] [address] MCHC (RBC) [Mass/Vol] 35.1 g/dL Normal 30.5-36.0 [facility] Comment on above: Order Comment: Speci men Type: BLOOD SPECIMEN Ordering Facility: [facility] Address: [address] [place] [address] Performed By: #### 1 4196-0, 13912-4 #### [facility] CLIA [id number] [address] MCV (RBC) [Entitic vol] 78.0 fL Low 80.0-100.0 [facility] Comment on above: Order Comment: Speci men Type: BLOOD SPECIMEN Ordering Facility: [facility] Address: [address] [place] [address] Performed By: #### 1 4196-0, 80248-9 #### [facility] CLIA [id number] [address] Nucleated RBC (Bld) [#/Vol] 10*3/uL Normal <0.01 [facility] Comment on above: Order Comment: Speci men Type: BLOOD SPECIMEN Ordering Facility: [facility] Address: [address] [place] [address] Performed By: #### 1 4196-0, 12887-0 #### [facility] CLIA [id number] [address] Platelet mean volume (Bld) [Entitic vol] 10.3 fL Normal 9.0-12.7 [facility] Comment on above: Order Comment: Speci men Type: BLOOD SPECIMEN Ordering Facility: [facility] Address: [address] [place] [address] Performed By: #### 1 4196-0, 53603-3 #### [facility] CLIA [id number] [address] [place] Platelets (Bld) [#/Vol] 148 10*3/uL Low 150-400 [facility] Comment on above: Order Comment: Speci men Type: BLOOD SPECIMEN Ordering Facility: [facility] Address: [address] [place] [address] Performed By: #### 1 4196-0, 20306-6 #### [facility] CLIA [id number] [address] [place] [address] OF [facility] RBC (Bld) [#/Vol] 2.96 10*6/uL Low 3.90-5.20 [facility] Comment on above: Order Comment: Speci men Type: BLOOD SPECIMEN Ordering Facility: [facility] Address: [address] [place] [address] Performed By: #### 1 4196-0, 96430-6 #### [facility] CLIA [id number] [address] [place] [address] OF [facility] WBC (Bld) [#/Vol] 10.53 10*3/uL Normal 3.70-11.00 [facility] Comment on above: Order Comment: Speci men Type: BLOOD SPECIMEN Ordering Facility: [facility] Address: [address] [place] [address] Performed By: #### 1 4196-0, 66772-4 #### [facility] CLIA [id number] [address] [place] [address] OF [facility] CONSULT PROGon 03-22-2023 CONSULT PROG HNO ID: [id number] Author: MAGAN VILLAFUERTE DO Service: Pulmonary Disease [...] enzymes), -GERD, -HTN, -h/o disseminated Histoplasmosis in 4614-9130 managed on itraconazole, ne H an M [...] inside the abdomen. INR on arrival to [place] was 9. She given Vitamin K and transferred here. 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 No sustained Rx with Amiodarone, Nitrofurantoin, cancer chemotherapy. Smoking h/o: [id number] former smoker, quit in 1989. Late was a heavy smoker Subjective Na 128 PC going down INR >8 Histoplasma positive Histoplasma H and M band present Objective PAST MEDICAL HISTORY Diagnosis Date Anemia Bone marrow involvement with histoplasmosis Bronchiectasis (HCC) COPD (chronic obstructive pulmonary disease) ([facility]) Disseminated histoplasmosis Colitis, immunosuppression, 01/2018. Diverticulosis of colon (without mention of hemorrhage) Diverticulosis DVT, recurrent, lower extremity, acute ([facility]) 12/10/2014 Esophageal reflux Hiatal hernia 02/25/2018 Hypertension Lung nodule Personal history of unspecified urinary disorder Rheumatoid arthritis involving multiple sites with positive rheumatoid factor ([facility]) 03/07/2015 Dr. Hurley ([facility]) Unspecified hemorrhoids without mention of complication Hemorrhoids [...] SPINE FUSN,POST INTERBODY 2011 Dr. Armando at [facility]. Diskectomy and laminectomy PAST SURGICAL HISTORY OF 03/07/1999 removal facial lesion PAST SURGICAL HISTORY OF 08/17/2014 excision soft tissue mass left index finger TONSILLECTOMY PRIMARY/SECONDARY TRANSCATH RETRIEVAL,PERCUT 12/28/2006 medication ALL (more content not included)... Normal [facility] CT ABD/PEL W IVCONon 024 CT ABD/PEL W IVCON * * *Final Report* * * * * * SEE BOTTOM OF REPORT FOR ADDENDED TEXT * * * DATE OF EXAM: Mar 22 2023 9:46AM [facility] 0530 - CT ABD/PEL W IVCON [...] on 3:17. Stable dating back to 04/04/2018. Principal Archaeologist (topogram) images: No significant additional findings. IMPRESSION: [...] be communicated with the ordering provider via [employer] staff message or phone message by [employer] within 2 business days of report finalization. ========= Algorithms for management of incidental imaging findings can be found on the [facility] Intranet Sharepoint site at: [email or web address] [email or web address]/Forms/Al [email or web address] Food Production Supervisor: KRYSTAL Transcribe Date/Time: Mar 22 2023 10:59A Dictated by : MIRIAN CHENEY MD This examination was interpreted and the report reviewed and electronically signed by: MIRIAN CHENEY MD on Mar 22 2023 10:43AM EST This document has been addended by: MIRIAN CHENEY MD on Mar 22 2023 11:00AM EST [id number] Normal [facility] Comp Metab 2000 Pnl SerPlon 03-22-2023 Bilirubin [Mass/Vol] 0.8 mg/dL Normal 0.2-1.3 [facility] Comment on above: Order Comment: Speci men Type: BLOOD SPECIMENOrdering Facility: [facility] Address: [address] [place] [address] Performed By: #### 2 4325-3, 92155-0 ####[facility]ORY[facility]IA [id number] [place] [address] [facility] Comprehensive metabolic 2000 panelon 03-22-2023 Albumin [Mass/Vol] 2.7 g/dL Low 3.9-4.9 [facility] Comment on above: Order Comment: Speci men Type: BLOOD SPECIMENOrdering Facility: [facility] Address: [address] [place] [address] Performed By: #### 2 4325-3, 70814-8 ####[facility]ORYCLIA [id number] [address] STATES OF [facility] ALP [Catalytic activity/Vol] 201 U/L High 34-123 [facility] Comment on above: Order Comment: Speci men Type: BLOOD SPECIMENOrdering Facility: [facility] Address: [address] [place] [address] Performed By: #### 2 4325-3, 23786-2 ####[facility]ORYCLIA [id number] [address] OF [facility] ALT With P-5'-P [Catalytic activity/Vol] 54 U/L High 7-38 [facility] Comment on above: Order Comment: Speci men Type: BLOOD SPECIMENOrdering Facility: [facility] Address: [address] [place] [address] Performed By: #### 2 4325-3, 18228-4 ####[facility]ORYCLIA [id number] [address] STATES OF [facility] Anion gap [Moles/Vol] 8 mmol/L Low 9-18 [facility] Comment on above: Order Comment: Speci men Type: BLOOD SPECIMENOrdering Facility: [facility] Address: [address] [place] [address] Performed By: #### 2 4325-3, ####[facility]ORYCLIA [id number] [place] [address] [place] AST With P-5'-P [Catalytic activity/Vol] 33 U/L Normal 13-35 [facility] Comment on above: Order Comment: Speci men Type: BLOOD SPECIMENOrdering Facility: [facility] Address: [address] [place] [address] Performed By: #### 2 4325-3, ####[facility]ORYCLIA [id number] [place] [address] [place] Calcium [Mass/Vol] 8.8 mg/dL Normal 8.5-10.2 [facility] Comment on above: Order Comment: Speci men Type: BLOOD SPECIMENOrdering Facility: [facility] Address: [address] [place] [address] Performed By: #### 2 4325-3, ####[facility]ORYCLIA [id number] [place] [address] [place] Chloride [Moles/Vol] 100 mmol/L Normal 97-105 [facility] Comment on above: Order Comment: Speci men Type: BLOOD SPECIMENOrdering Facility: [facility] Address: [address] [place] [address] Performed By: #### 2 4325-3, ####[facility]ORYCLIA [id number] [place] [address] [place] CO2 [Moles/Vol] 26 mmol/L Normal 22-30 [facility] Comment on above: Order Comment: Speci men Type: BLOOD SPECIMENOrdering Facility: [facility] Address: [address] [place] [address] Performed By: #### 2 4325-3, 80878-2 ####[facility]ORYCLIA [id number] [place] [address] [place] Creatinine [Mass/Vol] 0.83 mg/dL Normal 0.58-0.96 [facility] Comment on above: Order Comment: Renay adkins Type: BLOOD SPECIMENOrdering Facility: [facility] Address: [address] [place] [address] Performed By: #### 2 4325-3, 38554-7 ####[facility]ORYCLIA [id number] [place] [address] [place] Creatinine and Glomerular filtration rate.predicted panel (S/P/Bld) 74 mL/min/1.73m??? Normal >=60 [facility] Comment on above: Order Comment: Renay adkins Type: BLOOD SPECIMENOrdering Facility: [facility] Address: [address] [place] [address] Result Comment: Meaghan mated Glomerular Filtration Rate [...] actual GFR. Performed By: #### 2 4325-3, 04199-0 ####[facility]ORYCLIA [id number] [place] [address] [place] Glucose [Mass/Vol] 158 mg/dL High 74-99 [facility] Comment on above: Order Comment: Renay lucille Type: BLOOD SPECIMENOrdering Facility: [facility] Address: [address] [place] [address] Result Comment: The [place] Diabetes Association (ADA) provides guidance for cutoff [...] Standards of Medical Care in Diabetes 2016, [place] [employer]. Diabetes Care. 2016.39(Suppl 1). Performed By: #### 2 4325-3, 81367-4 ####[facility]ORYCLIA [id number] [place] [address] [place] Potassium [Moles/Vol] 4.0 mmol/L Normal 3.7-5.1 [facility] Comment on above: Order Comment: Speci men Type: BLOOD SPECIMENOrdering Facility: [facility] Address: [address] [place] [address] Performed By: #### 2 4325-3, ####[facility]ATORYCLIA [id number] [place] [address] [place] Protein [Mass/Vol] 4.9 g/dL Low 6.3-8.0 [facility] Comment on above: Order Comment: Speci men Type: BLOOD SPECIMENOrdering Facility: [facility] Address: [address] [place] [address] Performed By: #### 2 432-3, 25526-0 ####[facility]ATORYCLIA [id number] [place] [address] [place] Sodium [Moles/Vol] 134 mmol/L Low 136-144 [facility] Comment on above: Order Comment: Speci men Type: BLOOD SPECIMENOrdering Facility: [facility] Address: [address] [place] [address] Performed By: #### 2 4325-3, 01666-1 ####[facility]ATORYCLIA [id number] [address] STATES [place] Urea nitrogen [Mass/Vol] 24 mg/dL High 7-21 [facility] Comment on above: Order Comment: Speci men Type: BLOOD SPECIMENOrdering Facility: [facility] Address: [address] [place] [address] Performed By: #### 2 4325-3, 90508-6 ####[facility]ATORYCLIA [id number] [place] [address] [place] ECHOon 03-22-2023 Echocardiography Echocardiography Rep ort: Transthoracic Echo [facility] Date of service: 03/22/2023 12:34:35 PM HOSPITAL Ordering physician: AMERICA MAYER Indication: Re-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 heart disease with change in clinical status Technologist: Jamarcus Fraser [facility] Interpreting physician: Jb Richardson MD PATIENT: Name: [...] to mitral (more content not included)... Normal [facility] Haptoglob SerPl-mCncon 03-22 Haptoglobin [Mass/Vol] 95 mg/dL Normal 31-238 [facility] Comment on above: Order Comment: Renay adkins Type: BLOOD SPECIMEN Ordering Facility: [facility] Address: [address] [place] [address] Performed By: #### 1 4196-0, 78951-5 #### [facility] CLIA [id number] [address] [place] [address] [place] Hepatic function 2000 panelo n 03-22-2023 Albumin [Mass/Vol] 2.6 g/dL Low 3.9-4.9 [facility] Comment on above: Order Comment: Renay adkins Type: BLOOD SPECIMENOrdering Facility: [facility] Address: [address] [place] [address] Performed By: #### 2 4325-3, 21858-2 ####[facility]ORYCLIA [id number] [address] STATES [place] ALP [Catalytic activity/Vol] 200 U/L High 34-123 [facility] Comment on above: Order Comment: Renay adkins Type: BLOOD SPECIMENOrdering Facility: [facility] Address: [address] [place] [address] Performed By: #### 2 4325-3, 24309-2 ####[facility]ORYCLIA [id number] [address] STATES [place] ALT With P-5'-P [Catalytic activity/Vol] 53 U/L High 7-38 [facility] Comment on above: Order Comment: Speci men Type: BLOOD SPECIMENOrdering Facility: [facility] Address: [address] [place] [address] Performed By: #### 2 4325-3, ####[facility]ORYCLIA [id number] [place] [address] [place] AST With P-5'-P [Catalytic activity/Vol] 38 U/L High 13-35 [facility] Comment on above: Order Comment: Speci men Type: BLOOD SPECIMENOrdering Facility: [facility] Address: [address] [place] [address] Performed By: #### 2 4325-3, ####[facility]ORYCLIA [id number] [address] [place] Bilirubin.conjugated [Mass/Vol] 0.3 mg/dL High <0.2 [facility] Comment on above: Order Comment: Speci men Type: BLOOD SPECIMENOrdering Facility: [facility] Address: [address] [place] [address] Performed By: #### 2 4325-3, ####[facility]ORYCLIA [id number] [address] [place] Protein [Mass/Vol] 5.1 g/dL Low 6.3-8.0 [facility] Comment on above: Order Comment: Speci men Type: BLOOD SPECIMENOrdering Facility: [facility] Address: [address] [place] [address] Performed By: #### 2 4325-3, ####[facility]ORYCLIA [id number] [address] [place] LDH SerPl-cCncon 03-22-2023 LDH [Catalytic activity/Vol] 300 U/L High 135-214 [facility] Comment on above: Order Comment: Speci men Type: BLOOD SPECIMEN Ordering Facility: [facility] Address: [address] [place] [address] Performed By: #### 1 4196-0, 19973-3 #### [facility] CLIA [id number] [address] [place] [id number] [facility] Lactate (Bld) [Moles/Vol]on 03-22-2023 Lactate [Moles/Vol] 1.7 mmol/L Normal 0.5-2.2 [facility] Comment on above: Order Comment: Renay adkins Type: BLOOD SPECIMEN Ordering Facility: [facility] Address: [address] [place] [address] Performed By: #### 1 4196-0, 85656-1 #### [facility] CLIA [id number] [address] [place] [id number] [facility] [place] NURSING PROGon 03-22-2023 NURSING PROG HNO ID: [id number] Author: OJ MOLINA RN Service: Nursing Author Type: Registered Nurse Type: Nursing Progress Note Filed: 03/22/2023 09:58 Note Text: Pt to remain in isolation d/t positive covid test at [place] and pt being immunocompromised. Orders received from Dr Geno Hart. Normal [facility] PT panel Coag (PPP)on 2023 INR Coag (PPP) [Relative time] 2.5 {INR} High 0.9-1.3 [facility] Comment on above: Order Comment: Renay adkins Type: BLOOD SPECIMENOrdering Facility: [facility] Address: [address] [place] [address] Result Comment: Halle min K Antagonist (VKA) Therapeutic Range: INR 2 to 3 (Target INR of 2.5) Note: For patients treated with VKA drugs, such as warfarin, the [place] [employer] 2012 Guideline recommends [...] Chest 2012, 141:7S-47S Mitzi RA, et al. [facility] 2017, 70: 252-289 Performed By: #### 3 4528-0 ####[facility]ATORYCLIA [id number] [address] PT Coag (PPP) [Time] 24.6 s High 9.7-13.0 [facility] Comment on above: Order Comment: Speci lucille Type: BLOOD SPECIMENOrdering Facility: [facility] Address: [address] [place] [address] Performed By: #### 3 4528-0 ####[facility]ATORYCLIA [id number] [address] Retics #on 03-22-2023 Reticulocytes (Bld) [#/Vol] 0.92928 10*3/uL Normal 0.018-0.10 0 [facility] Comment on above: Order Comment: Specbetina adkins Type: BLOOD SPECIMEN Ordering [facility]: [facility] Address: [address] [place] [address] Performed By: #### 1 4196-0, 16268-1 #### [facility] CLIA [id number] [address] Reticulocytes (Bld) [#/Vol]o n 03-22-2023 Reticulocytes/100 RBC (Bld) 2.9 % High 0.4-2.0 [facility] Comment on above: Order Comment: Specbetina adkins Type: BLOOD SPECIMEN Ordering Facility: [facility] Address: [address] [place] [address] Performed By: #### 1 4196-0, 92574-5 #### [facility] CLIA [id number] [address] CBC panel Auto (Bld)on 03-21 Erythrocyte distribution width (RBC) [Ratio] 16.2 % High 11.5-15.0 [facility] Comment on above: Order Comment: Speci men Type: BLOOD SPECIMEN Ordering [facility] Address: [address] [place] [address] Performed By: #### 1 4196-0, 55234-1 #### [facility] CLIA [id number] [address] [place] Hematocrit (Bld) [Volume fraction] 25.9 % Low 36.0-46.0 [facility] Comment on above: Order Comment: Speci men Type: BLOOD SPECIMEN Ordering Facility: [facility] Address: [address] [place] [address] Performed By: #### 1 4196-0, 34956-2 #### [facility] CLIA [id number] [address] [place] [address] [place] Hemoglobin (Bld) [Mass/Vol] 8.6 g/dL Low 11.5-15.5 [facility] Comment on above: Order Comment: Speci men Type: BLOOD SPECIMEN Ordering Facility: [facility] Address: [address] [place] [address] Performed By: #### 1 4196-0, 20824-2 #### [facility] CLIA [id number] [address] [place] [address] [place] MCH (RBC) [Entitic mass] 26.8 pg Normal 26.0-34.0 [facility] Comment on above: Order Comment: Speci men Type: BLOOD SPECIMEN Ordering [facility]: [facility] Address: [address] [place] [address] Performed By: #### 1 4196-0, 48681-0 #### [facility] CLIA [id number] [address] [place] [address] [place] MCHC (RBC) [Mass/Vol] 33.2 g/dL Normal 30.5-36.0 [facility] Comment on above: Order Comment: Speci men Type: BLOOD SPECIMEN Ordering Facility: [facility] Address: [address] [place] [address] Performed By: #### 1 4196-0, 37802-9 #### [facility] CLIA [id number] [address] MCV (RBC) [Entitic vol] 80.7 fL Normal 80.0-100.0 [facility] Comment on above: Order Comment: Speci men Type: BLOOD SPECIMEN Ordering [facility]: [facility] Address: [address] [place] [address] Performed By: #### 1 4196-0, 04210-0 #### [facility] CLIA [id number] [address] Nucleated RBC (Bld) [#/Vol] 10*3/uL Normal <0.01 [facility] Comment on above: Order Comment: Speci men Type: BLOOD SPECIMEN Ordering [facility]: [facility] Address: [address] [place] [address] Performed By: #### 1 4196-0, 90357-1 #### [facility] CLIA [id number] [address] Platelet mean volume (Bld) [Entitic vol] 10.6 fL Normal 9.0-12.7 [facility] Comment on above: Order Comment: Speci men Type: BLOOD SPECIMEN Ordering [facility]: [facility] Address: [address] [place] [address] Performed By: #### 1 4196-0, 67759-8 #### [facility] CLIA [id number] [address] Platelets (Bld) [#/Vol] 148 10*3/uL Low 150-400 [facility] Comment on above: Order Comment: Speci men Type: BLOOD SPECIMEN [facility]: [facility] Address: [address] [place] [address] Performed By: #### 1 4196-0, 11014-9 #### [facility] CLIA [id number] [address] RBC (Bld) [#/Vol] 3.21 10*6/uL Low 3.90-5.20 [facility] Comment on above: Order Comment: Speci men Type: BLOOD SPECIMEN Order[facility]: [facility] Address: [address] [place], [place] [address] Performed By: #### 1 4196-0, 15881-9 #### [facility] CLIA [id number] [address] WBC (Bld) [#/Vol] 6.94 10*3/uL Normal 3.70-11.00 [facility] Comment on above: Order Comment: Speci men Type: BLOOD SPECIMEN Ordering [facility]: [facility] Address: [address] [place], [place] [address] Performed By: #### 1 4196-0, 96140-4 #### [facility] CLIA [id number] [address] CONSULTon 03-21-2023 CONSULT HNO ID: [id number] Author: SHERIN SHEA DO Service: Hospital Medicine Author Type: Physician Type: Consults Filed: 03/21/2023 17:37 Note Text: DEPARTMENT OF HOSPITAL MEDICINE INITIAL CONSULT SERVICE DATE: 03/21/2023 SERVICE TIME: 10:03 AM Primary Care Physician: Claudine Durán MD NIGHT AND WEEKEND COVERAGE: [place] COVERAGE: After 7pm, please call cross cover pager #[phone] REASON FOR CONSULT: possibly assume care REQUESTING PHYSICIAN: Alan Subjective CHIEF COMPLAINT: hemoptysis HPI: This is a 77 year old female with PMH RA on humira, HTN, disseminated histo, 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 Reportedly found to be COVID+ in [place] and intraperitoneal air and pneumatosis intestinalis noted [...] multiple sites with positive rheumatoid factor ([facility]) 03/07/2015 Dr. Hurley ([facility]) Unspecified hemorrhoids without mention of complication Hemorrhoids [...] SPINE FUSN,POST INTERBODY 2011 Dr. Armando at [facility]. Diskectomy and laminectomy PAST SURGICAL HISTORY [...] 4 H PRN remdesivir in NaCl 0.9% Vial-Mate/ADD-[place] 100 mg 275 mL 100 mg INTRAVENOUS [...] (SPORANOX) 200 mg ORAL BID phenol 1 Stephen (CHLORASEPTIC) 1 Stephen MUCOUS MEMBRANE (TOPICAL MOUTH AND THROAT) q 2 H PRN . ALLERGIES Allerg (more content not included)... Normal [facility] CONSULT PROGon 03-21-2023 CONSULT PROG HNO ID: [id number] Author: MAGAN VILLAFUERTE DO Service: Pulmonary Disease [...] enzymes), -GERD, -HTN, -h/o disseminated Histoplasmosis in 9604-4365 managed on itraconazole, ne H an M [...] inside the abdomen. INR on arrival to [place] was 9. She given Vitamin K and transferred here. 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 No sustained Rx with Amiodarone, Nitrofurantoin, cancer chemotherapy. Smoking h/o: 71-ohvv-enuc former smoker, quit in 1989. Late was [...] positive rheumatoid factor (HCC) 03/07/2015 Dr. Hurley ([facility]) Unspecified hemorrhoids without mention of complication Hemorrhoids [...] SPINE FUSN,POST INTERBODY 2011 Dr. Armando at [facility]. Diskectomy and laminectomy PAST SURGICAL HISTORY OF 03/07/1999 removal facial lesion PAST SURGICAL HISTORY OF 08/17/2014 excision soft tissue mass left index finger TONSILLECTOMY PRIMARY/ (more content not included)... Normal [facility] Comprehensive metabolic 2000 panelon 03-21-2023 Albumin [Mass/Vol] 2.8 g/dL Low 3.9-4.9 [facility] Comment on above: Order Comment: Speci men Type: BLOOD SPECIMEN Ordering Facility: [facility] Address: [address] [place] [address] Performed By: #### 2 4323-8, 44991-7 #### [facility] CLIA [id number] [address] ALP [Catalytic activity/Vol] 215 U/L High 34-123 [facility] Comment on above: Order Comment: Speci men Type: BLOOD SPECIMEN Ordering Facility: [facility] Address: [address] [place] [address] Performed By: #### 2 4323-8, 71048-8 #### [facility] CLIA [id number] [address] OF [facility] ALT With P-5'-P [Catalytic activity/Vol] 62 U/L High 7-38 [facility] Comment on above: Order Comment: Speci men Type: BLOOD SPECIMEN Ordering Facility: [facility] Address: [address] [place] [address] Performed By: #### 2 4323-8, 83337-8 #### [facility] CLIA [id number] [address] Anion gap [Moles/Vol] 7 mmol/L Low 9-18 [facility] Comment on above: Order Comment: Speci men Type: BLOOD SPECIMEN Ordering Facility: [facility] Address: [address] [place] [address] Performed By: #### 2 4323-8, 56143-4 #### [facility] CLIA [id number] [address] OF [place] AST With P-5'-P [Catalytic activity/Vol] 42 U/L High 13-35 [facility] Comment on above: Order Comment: Speci men Type: BLOOD SPECIMEN Ordering Facility: [facility] Address: [address] [place] [address] Performed By: #### 2 4323-8, 15207-6 #### [facility] CLIA [id number] [address] [place] Bilirubin [Mass/Vol] 0.6 mg/dL Normal 0.2-1.3 [facility] Comment on above: Order Comment: Speci men Type: BLOOD SPECIMEN Ordering Facility: [facility] Address: [address] [place] [address] Performed By: #### 2 4323-8, 64651-9 #### [facility] CLIA [id number] [address] [place] Calcium [Mass/Vol] 8.5 mg/dL Normal 8.5-10.2 [facility] Comment on above: Order Comment: Speci men Type: BLOOD SPECIMEN Ordering Facility: [facility] Address: [address] [place] [address] Performed By: #### 2 4323-8, 82119-1 #### [facility] CLIA [id number] 1 [place] [address] [place] Chloride [Moles/Vol] 97 mmol/L Normal 97-105 [facility] Comment on above: Order Comment: Speci men Type: BLOOD SPECIMEN Ordering Facility: [facility] Address: [address] [place] [address] Performed By: #### 2 4323-8, 18524-8 #### [facility] CLIA [id number] 1 [place] [address] [place] CO2 [Moles/Vol] 26 mmol/L Normal 22-30 [facility] Comment on above: Order Comment: Speci men Type: BLOOD SPECIMEN Ordering Facility: [facility] Address: [address] [place] [address] Performed By: #### 2 4323-8, 39258-3 #### [facility] CLIA [id number] 1 [place] [address] [place] Creatinine [Mass/Vol] 0.93 mg/dL Normal 0.58-0.96 [facility] Comment on above: Order Comment: Renay adkins Type: BLOOD SPECIMEN Ordering Facility: [facility] Address: [address] [place] [address] Performed By: #### 2 4323-8, 64601-9 #### [facility] CLIA [id number] [address] OF [facility] Creatinine and Glomerular filtration rate.predicted panel (S/P/Bld) 64 mL/min/1.73m??? Normal >=60 [facility] Comment on above: Order Comment: Renay adkins Type: BLOOD SPECIMEN Ordering Facility: [facility] Address: [address] [place] [address] Result Comment: Meaghan mated Glomerular Filtration Rate [...] actual GFR. Performed By: #### 2 4323-8, 08580-1 #### [facility] CLIA [id number] [address] STATES OF [facility] Glucose [Mass/Vol] 162 mg/dL High 74-99 [facility] Comment on above: Order Comment: Renay adkins Type: BLOOD SPECIMEN Ordering Facility: [facility] Address: [address] [place] [address] Result Comment: The [place] Diabetes Association (ADA) provides guidance for cutoff [...] Standards of Medical Care in Diabetes 2016, [place] [employer]. Diabetes Care. 2016.39(Suppl 1). Performed By: #### 2 4323-8, 10391-3 #### [facility] CLIA [id number] [address] [place] Potassium [Moles/Vol] 4.5 mmol/L Normal 3.7-5.1 [facility] Comment on above: Order Comment: Speci men Type: BLOOD SPECIMEN Ordering Facility: [facility] Address: [address] [place] [address] Performed By: #### 2 4323-8, 92891-1 #### [facility] CLIA [id number] 1 [place] [address] [place] Protein [Mass/Vol] 5.0 g/dL Low 6.3-8.0 [facility] Comment on above: Order Comment: Speci men Type: BLOOD SPECIMEN Ordering Facility: [facility] Address: [address] [place] [address] Performed By: #### 2 4323-8, 48746-7 #### [facility] CLIA [id number] [address] [place] Sodium [Moles/Vol] 130 mmol/L Low 136-144 [facility] Comment on above: Order Comment: Speci men Type: BLOOD SPECIMEN Ordering Facility: [facility] Address: [address] [place] [address] Performed By: #### 2 4323-8, 77493-7 #### [facility] CLIA [id number] 1 [place] [address] [place] Urea nitrogen [Mass/Vol] 19 mg/dL Normal 7-21 [facility] Comment on above: Order Comment: Speci men Type: BLOOD SPECIMEN Ordering Facility: [facility] Address: [address] [place] [address] Performed By: #### 2 4323-8, 16060-7 #### [facility] CLIA [id number] [address] STATES OF [facility] ECG COMPLETEon 03-21-2023 ECG COMPLETE Ventricular Rate : 1 03 BPM Atrial Rate : 103 BPM P-R Interval : 134 ms QRS Duration : 80 ms Q-T Interval : 336 ms QTC Calculation(Bazett) : 440 ms Calculated P Debary : 55 degrees Calculated R Debary : 28 degrees Calculated T Debary : 33 degrees SINUS TACHYCARDIA POSSIBLE LEFT ATRIAL ENLARGEMENT LOW VOLTAGE QRS CANNOT RULE OUT ANTERIOR INFARCT , AGE UNDETERMINED ABNORMAL ECG NO PREVIOUS ECGS AVAILABLE Confirmed by MD THAO THOMAS ([id number]) on 03/29/2023 8:55:56 PM NAME : HAYDEE BUSTAMANTE PID : [id number] : 1945 Gender : Female Race : ORD : [id number] Procedure Date : Mar 21 2023 09:24:27 Edit Date : Mar 29 2023 20:55:58 Diagnosis: SINUS TACHYCARDIA POSSIBLE LEFT ATRIAL ENLARGEMENT LOW VOLTAGE QRS CANNOT RULE OUT ANTERIOR INFARCT , AGE UNDETERMINED ABNORMAL ECG NO PREVIOUS ECGS AVAILABLE Confirmed by MD THAO THOMAS ([id number]) on 03/29/2023 8:55:56 PM Test Reason : Check QT Location : 4 : [facility] EM Overread By : MD THAO THOMAS Edited By : MD THAO THOMAS Referred By : , Acquired by : BREN CELIS [facility] ED NOTEon 03-21-2023 ED NOTE HNO ID: [id number] Author: MAGALYS PHILLIPS RN Service: ? Author Type: Registered Nurse Type: ED Notes Filed: 03/21/2023 15:01 Note Text: Report given to Lilia MITCHELL 5100 at this time. No further questions at this time. [facility] ED NOTE HNO ID: [id number] Author: ELKE PELAEZ RN Service: Emergency Medicine Author Type: Registered Nurse Type: ED Notes Filed: 03/21/2023 03:09 Note Text: REPORT GIVEN TO ARJUN MITCHELL [facility] PT panel Coag (PPP)on 2023 INR Coag (PPP) [Relative time] 3.9 {INR} High 0.9-1.3 [facility] Comment on above: Order Comment: Speci men Type: BLOOD SPECIMEN Ordering Facility: [facility] Address: [address] [place] [address] Result Comment: Halle min K Antagonist (VKA) Therapeutic Range: INR 2 to 3 (Target INR of 2.5) Note: For patients treated with VKA drugs, such as warfarin, the [place] [employer] 2012 Guideline recommends [...] Chest 2012, 141:7S-47S Mitzi RA, et al. [facility] 2017, 70: 252-289 Performed By: #### 1 4196-0, 38790-8 #### [facility] CLIA [id number] 1 [place] [address] [place] PT Coag (PPP) [Time] 37.0 s High 9.7-13.0 [facility] Comment on above: Order Comment: Renay adkins Type: BLOOD SPECIMEN Ordering Facility: [facility] Address: [address] [place] [address] Performed By: #### 1 4196-0, 19871-9 #### [facility] CLIA [id number] [address] [place] Procalcitonin SerPl-mCncon 0 03-21-2023 Procalcitonin [Mass/Vol] 0.18 ng/mL High <0.09 [facility] Comment on above: Order Comment: Renay adkins Type: BLOOD SPECIMEN Ordering Facility: [facility] Address: [address] [place] [address] Result Comment: For a guided interpretation of test results, please visit the Change in Procalcitonin Calculator, [email or web address]. 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 tuberculosis tuberculin stim IFN-g Ql (Bld) Negative Normal [facility] Comment on above: Order Comment: Speci men Type: BLOOD SPECIMEN Ordering Facility: [facility] Address: [address] [place] [address] Performed By: #### 1 4196-0, 44103-3 #### [facility] CLIA [id number] [address] MITOGEN MINUS NIL >7.27 Normal >=0.50 [facility] Comment on above: Order Comment: Speci men Type: BLOOD SPECIMEN Ordering Facility: [facility] Address: [address] [place] [address] Performed By: #### 1 4196-0, 98281-4 #### [facility] CLIA [id number] [address] TB GAMMA INTERPRETATION Infection with M . tuberculosis complex is unlikely. If latent tuberculosis infection is highly suspected, a negative result does not rule out the infection. Specimens from immunocompromised patients and those <5 years of age may show false negative results. In case of a contact investigation, please repeat 8-12 weeks after a known exposure. Normal [facility] Comment on above: Order Comment: Speci men Type: BLOOD SPECIMEN Ordering Facility: [facility] Address: [address] [place] [address] Performed By: #### 1 4196-0, 60070-3 #### [facility] CLIA [id number] [address] [place] [address] TB NIL 2.73 IU/mL Normal <=8.00 [facility] Comment on above: Order Comment: Speci men Type: BLOOD SPECIMEN Ordering Facility: [facility] Address: [address] [place] [address] Performed By: #### 1 4196-0, 93900-6 #### [facility] CLIA [id number] [address] [place] [address] TB1 AG MINUS NIL <0.00 Normal <0.35 [facility] Comment on above: Order Comment: Speci men Type: BLOOD SPECIMEN Ordering Facility: [facility] Address: [address] [place] [address] Performed By: #### 1 4196-0, 31534-6 #### [facility] CLIA [id number] [address] [place] [address] TB2 AG MINUS NIL <0.00 Normal <0.35 [facility] Comment on above: Order Comment: Speci men Type: BLOOD SPECIMEN Ordering Facility: [facility] Address: [address] [place] [address] Performed By: #### 1 4196-0, 87002-6 #### [facility] CLIA [id number] 1 [place] [address] [place] Basic metabolic 2000 panelon 03-20-2023 Anion gap [Moles/Vol] 8 mmol/L Low 9-18 [facility] Comment on above: Order Comment: Speci men Type: BLOOD SPECIMEN Ordering Facility: [facility] Address: [address] [place] [address] Performed By: #### 1 4196-0, 69721-3 #### [facility] CLIA [id number] 1 [place] [address] [place] Calcium [Mass/Vol] 8.4 mg/dL Low 8.5-10.2 [facility] Comment on above: Order Comment: Speci men Type: BLOOD SPECIMEN Ordering Facility: [facility] Address: [address] [place] [address] Performed By: #### 1 4196-0, 40418-3 #### [facility] CLIA [id number] 1 [place] [address] [place] Chloride [Moles/Vol] 96 mmol/L Low 97-105 [facility] Comment on above: Order Comment: Speci men Type: BLOOD SPECIMEN Ordering Facility: [facility] Address: [address] [place] [address] Performed By: #### 1 4196-0, 65796-9 #### [facility] CLIA [id number] 1 [place] [address] [place] CO2 [Moles/Vol] 24 mmol/L Normal 22-30 [facility] Comment on above: Order Comment: Speci men Type: BLOOD SPECIMEN Ordering Facility: [facility] Address: [address] [place] [address] Performed By: #### 1 4196-0, 85880-1 #### [facility] CLIA [id number] 1 [place] [address] [place] Creatinine [Mass/Vol] 0.84 mg/dL Normal 0.58-0.96 [facility] Comment on above: Order Comment: Speci men Type: BLOOD SPECIMEN Ordering Facility: [facility] Address: [address] [place] [address] Performed By: #### 1 4196-0, 74465-0 #### [facility] CLIA [id number] [address] [place] Creatinine and Glomerular filtration rate.predicted panel (S/P/Bld) 73 mL/min/1.73m??? Normal >=60 [facility] Comment on above: Order Comment: Renay adkins Type: BLOOD SPECIMEN Ordering Facility: [facility] Address: [address] [place] [address] Result Comment: Meaghan mated Glomerular Filtration Rate [...] actual GFR. Performed By: #### 1 4196-0, 75573-9 #### [facility] CLIA [id number] [address] [place] [address] [place] Glucose [Mass/Vol] 77 mg/dL Normal 74-99 [facility] Comment on above: Order Comment: Renay adkins Type: BLOOD SPECIMEN Ordering Facility: [facility] Address: [address] [place] [address] Result Comment: The [place] Diabetes Association (ADA) provides guidance for cutoff [...] Standards of Medical Care in Diabetes 2016, [place] [employer]. Diabetes Care. 2016.39(Suppl 1). Performed By: #### 1 4196-0, 33153-1 #### [facility] CLIA [id number] [address] [place] Potassium [Moles/Vol] 3.9 mmol/L Normal 3.7-5.1 [facility] Comment on above: Order Comment: Speci men Type: BLOOD SPECIMEN Ordering Facility: [facility] Address: [address] [place] [address] Performed By: #### 1 4196-0, 86991-7 #### [facility] CLIA [id number] [address] STATES OF [facility] Sodium [Moles/Vol] 128 mmol/L Low 136-144 [facility] Comment on above: Order Comment: Speci men Type: BLOOD SPECIMEN Ordering Facility: [facility] Address: [address] [place] [address] Performed By: #### 1 4196-0, 53611-6 #### [facility] CLIA [id number] [address] [place] [address] [facility] Urea nitrogen [Mass/Vol] 25 mg/dL High 7-21 [facility] Comment on above: Order Comment: Speci men Type: BLOOD SPECIMEN Ordering Facility: [facility] Address: [address] [place] [address] Performed By: #### 1 4196-0, 03257-1 #### [facility] CLIA [id number] [address] OF [facility] CBC panel Auto (Bld)on 03-20 Erythrocyte distribution width (RBC) [Ratio] 16.3 % High 11.5-15.0 [facility] Comment on above: Order Comment: Speci men Type: BLOOD SPECIMEN Ordering Facility: [facility] Address: [address] [place] [address] Performed By: #### 1 4196-0, 40469-9 #### [facility] CLIA [id number] [address] Hematocrit (Bld) [Volume fraction] 24.6 % Low 36.0-46.0 [facility] Comment on above: Order Comment: Speci men Type: BLOOD SPECIMEN Ordering Facility: [facility] Address: [address] [place] [address] Performed By: #### 1 4196-0, 49267-5 #### [facility] CLIA [id number] [address] OF [facility] Hemoglobin (Bld) [Mass/Vol] 8.1 g/dL Low 11.5-15.5 [facility] Comment on above: Order Comment: Speci men Type: BLOOD SPECIMEN Ordering Facility: [facility] Address: [address] [place] [address] Performed By: #### 1 4196-0, 52469-9 #### [facility] CLIA [id number] [address] [place] [address] OF [facility] MCH (RBC) [Entitic mass] 26.9 pg Normal 26.0-34.0 [facility] Comment on above: Order Comment: Speci men Type: BLOOD SPECIMEN Ordering Facility: [facility] Address: [address] [place] [address] Performed By: #### 1 4196-0, 42244-5 #### [facility] CLIA [id number] [address] [place] [address] OF [facility] MCHC (RBC) [Mass/Vol] 32.9 g/dL Normal 30.5-36.0 [facility] Comment on above: Order Comment: Speci men Type: BLOOD SPECIMEN Ordering Facility: [facility] Address: [address] [place] [address] Performed By: #### 1 4196-0, 95025-4 #### [facility] CLIA [id number] [address] MCV (RBC) [Entitic vol] 81.7 fL Normal 80.0-100.0 [facility] Comment on above: Order Comment: Speci men Type: BLOOD SPECIMEN Ordering Facility: [facility] Address: [address] [place] [address] Performed By: #### 1 4196-0, 92843-8 #### [facility] CLIA [id number] [address] Nucleated RBC (Bld) [#/Vol] 10*3/uL Normal <0.01 [facility] Comment on above: Order Comment: Speci men Type: BLOOD SPECIMEN Ordering Facility: [facility] Address: [address] [place] [address] Performed By: #### 1 4196-0, 67254-3 #### [facility] CLIA [id number] [address] Platelet mean volume (Bld) [Entitic vol] 10.4 fL Normal 9.0-12.7 [facility] Comment on above: Order Comment: Speci men Type: BLOOD SPECIMEN Ordering Facility: [facility] Address: [address] [place] [address] Performed By: #### 1 4196-0, 76998-1 #### [facility] CLIA [id number] [address] Platelets (Bld) [#/Vol] 126 10*3/uL Low 150-400 [facility] Comment on above: Order Comment: Speci men Type: BLOOD SPECIMEN Ordering Facility: [facility] Address: [address] [place] [address] Result Comment: No c lot detected. Performed By: #### 1 4196-0, 70569-5 #### [facility] CLIA [id number] [address] [place] RBC (Bld) [#/Vol] 3.01 10*6/uL Low 3.90-5.20 [facility] Comment on above: Order Comment: Speci men Type: BLOOD SPECIMEN Ordering Facility: [facility] Address: [address] [place] [address] Performed By: #### 1 4196-0, 49845-3 #### [facility] CLIA [id number] 1 [place] [address] [place] WBC (Bld) [#/Vol] 5.06 10*3/uL Normal 3.70-11.00 [facility] Comment on above: Order Comment: Speci men Type: BLOOD SPECIMEN Ordering Facility: [facility] Address: [address] [place] [address] Performed By: #### 1 4196-0, 52770-3 #### [facility] CLIA [id number] [address] [place] [id number] [facility] [place] CONSULTon 03-20-2023 CONSULT HNO ID: [id number] Author: GENO HART MD Service: Infectious Disease [...] for recurrent lower extremity DVT, presented to [facility] 03/19/2023 for hemoptysis, going to the [facility] ED but then sent here due to [...] be COVID-positive. Interestingly a CAT scan at [facility] found pneumatosis intestinalis and intraperitoneal free air [...] -- 03/21/23 1000 remdesivir in NaCl 0.9% Vial-Mate/ADD-Grif[place] 100 mg 275 mL 100 mg, INTRAVENOUS, [...] -- Immuno (more content not included)... 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 INR on arrival to [facility] was 9. She given Vitamin K and transferred here. 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 No sustained Rx with Amiodarone, Nitrofurantoin, cancer chemotherapy. Smoking h/o: 10-acpa-gvix former smoker, quit in 1989. Late was [...] positive rheumatoid factor (HCC) 03/07/2015 Dr. Hurley ([facility]) Unspecified hemorrhoids without mention of complication Hemorrhoids [...] SPINE FUSN,POST INTERBODY 2012 Dr. Armando at [facility]. Diskectomy and laminectomy PAST SURGICAL HISTORY OF 03/07/1999 removal facial lesion PAST SURGICAL HISTORY OF 08/17/2014 excision soft tissue mass left index finger TONSILLECTOMY PRIMARY/SECONDARY TRANSCATH RETRIEVAL,PERCUT 12/28/2006 medication ALL (more content not included)... Normal [facility] Comprehensive metabolic 2000 panelon 03-20-2023 Albumin [Mass/Vol] 2.6 g/dL Low 3.9-4.9 [facility] Comment on above: Order Comment: Speci men Type: BLOOD SPECIMEN Ordering Facility: [facility] Address: [address] [place] [address] Performed By: #### 3 3959-8, 97996-2 #### [facility] CLIA [id number] [address] STATES OF [facility] ALP [Catalytic activity/Vol] 207 U/L High 34-123 [facility] Comment on above: Order Comment: Speci men Type: BLOOD SPECIMEN Ordering Facility: [facility] Address: [address] [place] [address] Performed By: #### 3 3959-8, 81558-2 #### [facility] CLIA [id number] [address] [place] ALT With P-5'-P [Catalytic activity/Vol] 65 U/L High 7-38 [facility] Comment on above: Order Comment: Speci men Type: BLOOD SPECIMEN Ordering Facility: [facility] Address: [address] [place] [address] Performed By: #### 3 3959-8, #### [facility] CLIA [id number] [address] [place] Anion gap [Moles/Vol] 8 mmol/L Low 9-18 [facility] Comment on above: Order Comment: Speci men Type: BLOOD SPECIMEN Ordering Facility: [facility] Address: [address] [place] [address] Performed By: #### 3 3959-8, #### [facility] CLIA [id number] [address] [place] AST With P-5'-P [Catalytic activity/Vol] 55 U/L High 13-35 [facility] Comment on above: Order Comment: Speci men Type: BLOOD SPECIMEN Ordering Facility: [facility] Address: [address] [place] [address] Performed By: #### 3 3959-8, #### [facility] CLIA [id number] [address] [place] Bilirubin [Mass/Vol] 0.7 mg/dL Normal 0.2-1.3 [facility] Comment on above: Order Comment: Speci men Type: BLOOD SPECIMEN Ordering Facility: [facility] Address: [address] [place] [address] Performed By: #### 3 3959-8, #### [facility] CLIA [id number] [address] [place] Calcium [Mass/Vol] 8.3 mg/dL Low 8.5-10.2 [facility] Comment on above: Order Comment: Speci men Type: BLOOD SPECIMEN Ordering Facility: [facility] Address: [address] [place] [address] Performed By: #### 3 3959-8, 06815-0 #### [facility] CLIA [id number] [address] [place] Chloride [Moles/Vol] 95 mmol/L Low 97-105 [facility] Comment on above: Order Comment: Speci men Type: BLOOD SPECIMEN Ordering Facility: [facility] Address: [address] [place] [address] Performed By: #### 3 3959-8, 12194-0 #### [facility] CLIA [id number] [address] OF [facility] CO2 [Moles/Vol] 25 mmol/L Normal 22-30 [facility] Comment on above: Order Comment: Speci men Type: BLOOD SPECIMEN Ordering Facility: [facility] Address: [address] [place] [address] Performed By: #### 3 3959-8, 62896-3 #### [facility] CLIA [id number] [address] Creatinine [Mass/Vol] 0.86 mg/dL Normal 0.58-0.96 [facility] Comment on above: Order Comment: Speci men Type: BLOOD SPECIMEN Ordering Facility: [facility] Address: [address] [place] [address] Performed By: #### 3 3959-8, 21084-3 #### [facility] CLIA [id number] [address] Creatinine and Glomerular filtration rate.predicted panel (S/P/Bld) 71 mL/min/1.73m??? Normal >=60 [facility] Comment on above: Order Comment: Speci men Type: BLOOD SPECIMEN Ordering Facility: [facility] Address: [address] [place] [address] Result Comment: Meaghan mated Glomerular Filtration Rate [...] actual GFR. Performed By: #### 3 3959-8, 58387-7 #### [facility] CLIA [id number] 1 [place] [address] [place] Glucose [Mass/Vol] 84 mg/dL Normal 74-99 [facility] Comment on above: Order Comment: Renay adkins Type: BLOOD SPECIMEN Ordering Facility: [facility] Address: [address] [place] [address] Result Comment: The [place] [employer] (ADA) provides guidance for cutoff [...] Standards of Medical Care in Diabetes 2016, [place] [employer]. Diabetes Care. 2016.39(Suppl 1). Performed By: #### 3 3959-8, 35410-3 #### [facility] CLIA [id number] 1 [place] [address] [place] Potassium [Moles/Vol] 4.3 mmol/L Normal 3.7-5.1 [facility] Comment on above: Order Comment: Renay adkins Type: BLOOD SPECIMEN Ordering Facility: [facility] Address: [address] [place] [address] Performed By: #### 3 3959-8, 57046-3 #### [facility] CLIA [id number] 1 [place] [address] [place] Protein [Mass/Vol] 4.7 g/dL Low 6.3-8.0 [facility] Comment on above: Order Comment: Renay adkins Type: BLOOD SPECIMEN Ordering Facility: [facility] Address: [address] [place] [address] Performed By: #### 3 3959-8, 95503-0 #### [facility] CLIA [id number] [address] [place] Sodium [Moles/Vol] 128 mmol/L Low 136-144 [facility] Comment on above: Order Comment: Speci men Type: BLOOD SPECIMEN Ordering Facility: [facility] Address: [address] [place] [address] Performed By: #### 3 3959-8, 00461-6 #### [facility] CLIA [id number] [address] [place] Urea nitrogen [Mass/Vol] 20 mg/dL Normal 7-21 [facility] Comment on above: Order Comment: Speci men Type: BLOOD SPECIMEN Ordering Facility: [facility] Address: [address] [place] [address] Performed By: #### 3 3959-8, 13166-0 #### [facility] CLIA [id number] [address] ED NOTEon 03-20-2023 ED NOTE HNO ID: [id number] Author: ELKE PELAEZ RN Service: Emergency Medicine Author Type: Registered Nurse Type: ED Notes Filed: 03/20/2023 17:13 Note Text: Pt given food tray [facility] ED NOTE HNO ID: [id number] Author: ELKE PELAEZ RN Service: Emergency Medicine Author Type: Registered Nurse Type: ED Notes Filed: 03/20/2023 15:44 Note Text: Pt ambulating to bathroom with steady gait [facility] ED NOTE HNO ID: [id number] Author: AMERICA ASTORGA RN Service: Emergency Medicine Author Type: Registered Nurse Type: ED Notes Filed: 03/20/2023 12:24 Note Text: Pt given lunch tray at this time. [facility] ED NOTE HNO ID: [id number] Author: BIBI GONZALEZ RN Service: Emergency Medicine Author Type: Registered Nurse Type: ED Notes Filed: 03/20/2023 06:27 Note Text: Surgery at bedside Normal [facility] ED NOTE HNO ID: [id number] Author: BIBI GONZALEZ RN Service: Emergency Medicine Author Type: Registered Nurse Type: ED Notes Filed: 03/20/2023 06:23 Note Text: Patient ambulatory to restroom and back with steady gait. Normal [facility] ED NOTE HNO ID: [id number] Author: BIBI GONZALEZ RN Service: Emergency Medicine Author Type: Registered Nurse Type: ED Notes Filed: 03/20/2023 02:11 Note Text: Patient ambulatory to restroom and back with steady gait. [facility] PT panel Coag (PPP)on 2023 INR Coag (PPP) [Relative time] 4.7 {INR} High 0.9-1.3 [facility] Comment on above: Order Comment: Renay adkins Type: BLOOD SPECIMENOrdering Facility: [facility] Address: [address] [place] [address] Result Comment: Halle min K Antagonist (VKA) Therapeutic Range: INR 2 to 3 (Target INR of 2.5) Note: For patients treated with VKA drugs, such as warfarin, the [place] [employer] 2012 Guideline recommends [...] 70: 252-289 Performed By: #### 3 4528-0 ####[facility] [id number] [place] [address] [place] PT Coag (PPP) [Time] 44.0 s High 9.7-13.0 [facility] Comment on above: Order Comment: Renay adkins Type: BLOOD SPECIMENOrdering Facility: [facility] Address: [address] [place] [address] Performed By: #### 3 4528-0 ####[facility] [id number] [address] STATES OF [facility] INR Coag (PPP) [Relative time] 5.7 {INR} High 0.9-1.3 [facility] Comment on above: Order Comment: Renay lucille Type: BLOOD SPECIMENOrdering Facility: [facility] Address: [address] [place] [address] Result Comment: Halle min K Antagonist (VKA) Therapeutic Range: INR 2 to 3 (Target INR of 2.5) Note: For patients treated with VKA drugs, such as warfarin, the [place] [employer] 2012 Guideline recommends [...] Chest 2012, 141:7S-47S Mitzi RA, et al. [facility] 2017, 70: 252-289 Performed By: #### 3 4528-0 ####[facility] [id number] [address] [place] PT Coag (PPP) [Time] 52.4 s High 9.7-13.0 [facility] Comment on above: Order Comment: Renay adkins Type: BLOOD SPECIMENOrdering Facility: [facility] Address: [facility] [place] [address] Performed By: #### 3 4528-0 ####[facility] [id number] [address] Procalcitonin SerPl-mCncon 0 03-20-2023 Procalcitonin [Mass/Vol] 0.20 ng/mL High <0.09 [facility] Comment on above: Order Comment: Speci men Type: BLOOD SPECIMEN Ordering Facility: [facility] Address: [address] [place] [address] Result Comment: For a guided interpretation of test results, please visit the Change in Procalcitonin Calculator, [email or web address]. Performed By: #### 3 3959-8, 44729-1 #### [facility] CLIA [id number] 1 [place] [address] [place] Resp path 12b Pnl [...] Not detected MYCOPLASMA PNEUMONIAE: Not detected Normal [facility] Comment on above: Performed By: #### 6 0566-7 ####[facility] [id number] [place] [address] [place] Absolute lymphocyte countOrd ered By: Bob Eilas on 03-19-2023 Lymphocytes Auto (Unsp spec) [#/Vol] 0.97 10*3/uL 0.83-4.51 [facility] Activated partial thrombopla stin time (aPTT) in platelet poor plasma by coagulation aOrdered By: Bob Elias on 03-19-2023 aPTT Coag (PPP) [Time] 109.6 s 24.1-36.2 [facility] Comment on above: CRITICAL VALUE VERIF IED. CALLED TO MYNOR MITCHELL (ER)03/19/23 1200 [address].RESULTS READ BACK BY SAME. Automated lymphocyte count a s percentage of total leukocytesOrdered By: Bob Elias on 03-19-2023 Lymphocytes/100 WBC Auto (Unsp spec) 15.1 % 19-41 [facility] Basic metabolic 2000 panelon 03-19-2023 Anion gap [Moles/Vol] 8 mmol/L Low 9-18 [facility] Comment on above: Order Comment: Speci men Type: BLOOD SPECIMENOrdering Facility: [facility] Address: [address] [place] [address] Performed By: #### 2 4321-2 ####[facility]IA [id number] [place] [address] [place] Calcium [Mass/Vol] 8.9 mg/dL Normal 8.5-10.2 [facility] Comment on above: Order Comment: Speci men Type: BLOOD SPECIMENOrdering Facility: [facility] Address: [address] [place] [address] Performed By: #### 2 4321-2 ####[facility]IA [id number] [place] [address] [place] Chloride [Moles/Vol] 95 mmol/L Low 97-105 [facility] Comment on above: Order Comment: Speci men Type: BLOOD SPECIMENOrdering Facility: [facility] Address: [address] [place] [address] Performed By: #### 2 4321-2 ####[facility] [id number] [place] [address] [place] CO2 [Moles/Vol] 25 mmol/L Normal 22-30 [facility] Comment on above: Order Comment: Speci men Type: BLOOD SPECIMENOrdering Facility: [facility] Address: [address] [place] [address] Performed By: #### 2 4321-2 ####[facility] [id number] [address] STATES OF [facility] Creatinine [Mass/Vol] 0.88 mg/dL Normal 0.58-0.96 [facility] Comment on above: Order Comment: Renay adkins Type: BLOOD SPECIMENOrdering Facility: [facility] Address: [address] [place] [address] Performed By: #### 2 4321-2 ####[facility] [id number] [address] Creatinine and Glomerular filtration rate.predicted panel (S/P/Bld) 69 mL/min/1.73m??? Normal >=60 [facility] Comment on above: Order Comment: Renay adkins Type: BLOOD SPECIMENOrdering Facility: [facility] Address: [address] [place] [address] Result Comment: Meaghan mated Glomerular Filtration Rate [...] actual GFR. Performed By: #### 2 4321-2 ####[facility]IA [id number] [address] OF [facility] Glucose [Mass/Vol] 87 mg/dL Normal 74-99 [facility] Comment on above: Order Comment: Renay adkins Type: BLOOD SPECIMENOrdering Facility: [facility] Address: [address] [place] [address] Result Comment: The [place] [employer] (ADA) provides guidance for cutoff [...] Standards of Medical Care in Diabetes 2016, [place] [employer]. Diabetes Care. 2016.39(Suppl 1). Performed By: #### 2 4321-2 ####[facility]IA [id number] [place] [address] [place] Potassium [Moles/Vol] 4.3 mmol/L Normal 3.7-5.1 [facility] Comment on above: Order Comment: Speci men Type: BLOOD SPECIMENOrdering Facility: [facility] Address: [address] [place] [address] Performed By: #### 2 4321-2 ####[facility]IA [id number] [place] [address] [place] Sodium [Moles/Vol] 128 mmol/L Low 136-144 [facility] Comment on above: Order Comment: Speci men Type: BLOOD SPECIMENOrdering Facility: [facility] Address: [address] [place] [address] Performed By: #### 2 4321-2 ####[facility]IA [id number] [place] [address] [place] Urea nitrogen [Mass/Vol] 27 mg/dL High 7-21 [facility] Comment on above: Order Comment: Abhilashi [facility] Type: BLOOD SPECIMENOrdering Facility: [facility] Address: [address] [place] [address] Performed By: #### 2 4321-2 ####[facility]ORYCLIA [id number] [place] [address] [place] Basophil percentageOrdered B y: Bob Elias on 03-19-2023 Basophil percentage 9.0 g/dL 12.0-15.0 [facility] Basophil percentage 89 mg/dL 74-106 [facility] Basophil percentage 130 mmol/L 136-145 [facility] Basophil percentage 4.5 mmol/L 3.5-5.1 [facility] Basophil percentage 100 mmol/L 98-107 [facility] Basophils (Bld) [#/Vol] 6.4 10*3/uL 4.4-11.0 [facility] Basophils (Bld) [#/Vol] 4.4 10*3/uL 2.0-7.7 [facility] Basophils/100 WBC (Bld) 1.1 % 0-1 [facility] Basophils/100 WBC (Bld) 68.8 % 47-70 [facility] Basophils/100 WBC (Bld) 10.9 % 0-10 [facility] Basophils/100 WBC (Bld) 2.5 % 0-5 [facility] Chloride [Moles/Vol] 100 mmol/L 98-107 [facility] Eosinophils/100 WBC (Bld) 2.5 % 0-5 [facility] Glucose [Mass/Vol] 89 mg/dL 74-106 [facility] Hemoglobin (Bld) [Mass/Vol] 9.0 g/dL 12.0-15.0 [facility] Monocytes/100 WBC (Bld) 10.9 % 0-10 [facility] Neutrophils (Bld) [#/Vol] 4.4 10*3/uL 2.0-7.7 [facility] Neutrophils/100 WBC (Bld) 68.8 % 47-70 [facility] Potassium [Moles/Vol] 4.5 mmol/L 3.5-5.1 [facility] Sodium [Moles/Vol] 130 mmol/L 136-145 [facility] WBC (Bld) [#/Vol] 6.4 10*3/uL 4.4-11.0 [facility] CBC panel Auto (Bld)on 03-19 Erythrocyte distribution width (RBC) [Ratio] 16.3 % High 11.5-15.0 [facility] Comment on above: Order Comment: Speci men Type: BLOOD SPECIMEN Order[facility] Address: [address] [place] [address] Performed By: #### 1 4196-0, 59443-8 #### [facility] CLIA [id number] [address] [place] [address] [place] Hematocrit (Bld) [Volume fraction] 29.2 % Low 36.0-46.0 [facility] Comment on above: Order Comment: Speci men Type: BLOOD SPECIMEN Ordering Facility: [facility] Address: [address] [place] [address] Performed By: #### 1 4196-0, 09121-5 #### [facility] CLIA [id number] [address] OF [facility] Hemoglobin (Bld) [Mass/Vol] 9.6 g/dL Low 11.5-15.5 [facility] Comment on above: Order Comment: Speci men Type: BLOOD SPECIMEN Ordering [facility]: [facility] Address: [address] [place] [address] Performed By: #### 1 4196-0, 55282-0 #### [facility] CLIA [id number] [address] [place] [address] [place] [facility] MCH (RBC) [Entitic mass] 26.7 pg Normal 26.0-34.0 [facility] Comment on above: Order Comment: Speci men Type: BLOOD SPECIMEN Order[facility]: [facility] Address: [address] [place] [address] Performed By: #### 1 4196-0, 45209-1 #### [facility] CLIA [id number] [address] [place] [address] OF [facility] MCHC (RBC) [Mass/Vol] 32.9 g/dL Normal 30.5-36.0 [facility] Comment on above: Order Comment: Speci men Type: BLOOD SPECIMEN Order[facility]: [facility] Address: [address] [place] [address] Performed By: #### 1 4196-0, 81103-5 #### [facility] CLIA [id number] [address] MCV (RBC) [Entitic vol] 81.1 fL Normal 80.0-100.0 [facility] Comment on above: Order Comment: Speci men Type: BLOOD SPECIMEN Order[facility]: [facility] Address: [address] [place] [address] Performed By: #### 1 4196-0, 45845-4 #### [facility] CLIA [id number] [address] [place] Nucleated RBC (Bld) [#/Vol] 10*3/uL Normal <0.01 [facility] Comment on above: Order Comment: Speci men Type: BLOOD SPECIMEN [facility] Address: [address] [place] [address] Performed By: #### 1 4196-0, 14808-2 #### [facility] CLIA [id number] [address] [place] Platelet mean volume (Bld) [Entitic vol] 9.6 fL Normal 9.0-12.7 [facility] Comment on above: Order Comment: Speci men Type: BLOOD SPECIMEN [facility] Address: [address] [place] [address] Performed By: #### 1 4196-0, 37408-6 #### [facility] CLIA [id number] [address] [place] Platelets (Bld) [#/Vol] 144 10*3/uL Low 150-400 [facility] Comment on above: Order Comment: Speci men Type: BLOOD SPECIMEN Order[facility]: [facility] Address: [address] [place] [address] Performed By: #### 1 4196-0, 82416-2 #### [facility] CLIA [id number] [address] [place] RBC (Bld) [#/Vol] 3.60 10*6/uL Low 3.90-5.20 [facility] Comment on above: Order Comment: Speci men Type: BLOOD SPECIMEN Order[facility]: [facility] Address: [address] [place] [address] Performed By: #### 1 4196-0, 77938-4 #### [facility] CLIA [id number] [address] [place] WBC (Bld) [#/Vol] 7.48 10*3/uL Normal 3.70-11.00 [facility] Comment on above: Order Comment: Speci men Type: BLOOD SPECIMEN Order[facility] Address: [address] [address] Performed By: #### 1 4196-0, 45690-0 #### [facility] CLIA [id number] [address] [place] [id number] [place] Determination of erythrocyte mean corpuscular volume (MCV)Ordered By: Bob Elias on 03-19-2023 MCV (RBC) [Entitic vol] 81.5 fL 81-99 [facility] ED NOTEon 03-19-2023 ED NOTE HNO ID: [id number] Author: BIBI GONZALEZ RN Service: Emergency Medicine Author Type: Registered Nurse Type: ED Notes Filed: 03/19/2023 20:07 Note Text: CT notified pt is ready Normal [facility] ED NOTE HNO ID: [id number] Author: APRIL SOARES RN Service: ? Author Type: Registered Nurse Type: ED Notes Filed: 03/19/2023 18:06 Note Text: Bed: 07-ED Expected date: 03/19/23 Expected time: Means of arrival: [facility] Comments: MARTÍN MOMIN: AKBAR TRANSFER Normal [facility] ED PROV NOTEon 03-19-2023 ED PROV NOTE HNO ID: [id number] Author: CHACHO ERNST DO Service: Emergency Medicine [...] who presents for pneumoperitoneum. Patient presents from [facility] where she initially presented after having worsening cough with hemoptysis. She states that a few weeks ago she was diagnosed with histoplasmosis for which she has been following with a correctional manager in [place]. She states that yesterday morning she was woken up from her sleep with persistent coughing and an episode of hemoptysis. She states that she has intermittently had blood tinge to her sputum but states that this was much more than normal. She is on Coumadin for history of prior DVT and states that she has been compliant with this. While she was at [place], she was found to have an INR [...] Bone marrow involvement with histoplasmosis Bronchiectasis ([facility]) COPD (chronic obstructive pulmonary disease) ([facility]) Disseminated histoplasmosis Colitis, immunosuppression, 01/2018. Diverticulosis of colon (without mention of hemorrhage) Diverticulosis DVT, recurrent, lower extremity, acute ([facility]) 12/10/2014 Esophageal reflux Hiatal hernia 02/25/2018 Hypertension Lung nodule Personal history of unspecified urinary disorder Rheumatoid arthritis involving multiple sites with positive rheumatoid factor ([facility]) 03/07/2015 Dr. Hurley ([facility]) Unspecified hemorrhoids without mention of complication Hemorrhoids [...] of her pneumoperitoneum. CHACHO ERNST 03/19/232058 Normal [facility] ED PROV NOTE HNO ID: [id number] Author: CHACHO ERNST DO Service: Emergency Medicine [...] presents with: Functional Transfers: Pt transferred from [facility] ED for free air and perf bowel. Pt states she initially went to the hospital for ongoing sore throat and one episode of hemoptysis early this morning. Pt denies chest or abd pain. Pt tested positive for Covid at [facility]. HPI Patient is a 77-year-old female with past medical history of DVT on Coumadin, COPD, recent diagnosis of histoplasmosis and Blastomyces, COVID-positive today presenting to the emergency department from was from [facility] due to possible bowel perf on imaging. Pt denies any pain currently. Pt reports that she went to [facility] this morning after spitting up a small amount of bright red blood from a cough which has been ongoing since January. Pt reports having a sore throat at this time but denies any lightheadedness, CP, SOB, abdominal pain, and denies any nausea or vomiting. Per EMS, pt had an INR of 9.4 at [facility]. Patient reports that she is on Coumadin [...] positive rheumatoid factor (HCC) 03/07/2015 Dr. Hurley ([facility]) Unspecified hemorrhoids without mention of complication Hemorrhoids [...] SPINE FUSN,POST INTERBODY 2011 Dr. Armando at [facility]. Diskectomy and laminectomy PAST SURGICAL HISTORY [...] As mentioned in HPI Physical Exam Vitals [03/19/231817] BP Pulse Temp Temp src Resp SpO2 Weight Height 117/65 (!) 103 36.8 ?C (98.3 ?F) Oral 23 95 % 54.9 kg (121 lb) 1.6 m (5' 3) Physical Exam Constitutional: General: She is not [...] is no (more content not included)... Normal [facility] Erythrocyte distribution wid th ratioOrdered By: Bob Elias on 03-19-2023 Erythrocyte distribution width (RBC) [Ratio] 16.3 % 11.6-14.6 [facility] Erythrocyte distribution wid th standard deviationOrdered By: Bob Elias on 03-19-2023 Erythrocyte distribution width (RBC) [Entitic vol] 48.3 fL 35.1-43.9 [facility] HISTORY PHYSICALon HISTORY PHYSICAL HNO ID: [id number] Author: PAMELA HALL MD Service: General Surgery [...] in the colon. INR on arrival to [facility] was 9. She given Vitamin K and transferred here. Patient denies any abdominal pain, nausea, vomiting, fevers, or chills. Patient reports normal bowel movements. Slightly tachycardic on arrival. HDS. Repeat CBC, BMP, PT/INR pending. CTAP read in [facility], currently waiting on image transfer from [place]. Noprevious abdominal surgeries. Last colonoscopy in 2019 [...] positive rheumatoid factor (HCC) 03/07/2015 Dr. Hurley ([facility]) Unspecified hemorrhoids without mention of complication Hemorrhoids [...] SPINE FUSN,POST INTERBODY 2011 Dr. Armando at [facility]. Diskectomy and laminectomy PAST SURGICAL HISTORY OF 03/07/1999 removal facial lesion PAST SURGICAL HISTORY OF 08/17/2014 excision soft tissue mass left index finger TONSILLECTOMY PRIMARY/SECONDARY TRANSCATH RETRIEVAL,JEVON 12/28/2006 FAMILY HISTORY Problem Relation Age of [...] (Src) 98.3 (Oral) Resp 23 Ht 5' 3 (1.60m) Wt 121 lb (54.9kg) SpO2 95% [...] in the colon. INR on arrival to [facility] was 9. She given Vitamin K and transferred here. Pneumatosis intestinalis (more content not included)... Normal [facility] Hematocrit Auto (Bld) [Volum e fraction]Ordered By: Bob Elias on 03-19-2023 Hematocrit (Bld) [Volume fraction] 27.7 % 37-47 [facility] Immature granulocytes/100 WB C Auto (Bld)Ordered By: Bob Elais on 03-19-2023 Immature granulocytes/100 WBC (Bld) 1.600 % 0.0-0.9 [facility] Comment on above: IG% - Immature Granu locytes (promyelocytes, myelocytes and metamyelocytes) > 1% indicates that a LEFT SHIFT is Present. International normalized rat io (INR) calculationOrdered By: Bbo Elias on 03-19-2023 INR Coag (PPP) [Relative time] 9.4 {INR} [facility] Comment on above: CRITICAL VALUE VERIF IED. CALLED TO MYNOR MTICHELL ()03/19/23 1200 Chacho Bernal.RESULTS READ BACK BY SAME. Laboratory - Chemistry and C hemistry - challengeOrdered By: Bob Elias on 03-19-2023 CO2 [Moles/Vol] 26.0 mmol/L 21.0-32.0 [facility] Urea nitrogen/Creatinine [Mass ratio] 35.7 mg/mg 10-20 [facility] Laboratory - CoagulationOrde red By: Bob Elias on 03-19-2023 PT Coag (PPP) [Time] 78.0 s 11.7-14.9 [facility] Laboratory - Hematology and Cell countsOrdered By: Bob Elias on 03-19-2023 MCH (RBC) [Entitic mass] 26.5 pg 27.0-32.0 [facility] MCHC (RBC) [Mass/Vol] 32.5 g/dL 32-36 [facility] Nucleated RBC/100 WBC (Bld) [Ratio] 0 % 0-5 [facility] Platelets (Bld) [#/Vol] 145 10*3/uL 150-450 [facility] Laboratory - Microbiology an d Antimicrobial susceptibilityOrdered By: Bob Elias on 03-19-2023 SARS-CoV-2 (COVID-19) RNA GWEN+probe Ql (Unsp spec) SARS-CoV-2 (COVID 19 PCR) [facility] SARS-CoV-2 (COVID-19) RNA GWEN+probe Ql (Unsp spec) SARS-CoV-2 (COVID 19 PCR) [facility] Lactate (Bld) [Moles/Vol]on 03-19-2023 Lactate [Moles/Vol] 1.2 mmol/L Normal 0.5-2.2 [facility] Comment on above: Order Comment: Speci men Type: BLOOD SPECIMEN Ordering Facility: [facility] Address: [address] [id number] Performed By: #### 1 4196-0, 92818-8 #### [facility] CLIA [id number] [address] No Panel InformationOrdered By: Bob Elias on 03-19-2023 Estimated Creatinine Clearance Calc 44.81 ml/min [facility] Estimated GFR (MDRD) Amer 73 mL/min >60 [facility] Comment on above: GFR Calc Estimated GFR (MDRD) Non-Af Amer 61 mL/min >60 [facility] Comment on above: Non- GFR Calc 26.5 pg 27.0-32.0 [facility] 32.5 g/dL 32-36 [facility] 145 K/mm3 150-450 [facility] 0 % 0-5 [facility] 78.0 SECONDS 11.7-14.9 [facility] 61 mL/min >60 [facility] 73 mL/min >60 [facility] 44.81 ml/min [facility] 35.7 RATIO 10-20 [facility] 26.0 mmol/L 21.0-32.0 [facility] SARS-CoV-2 (COVID 19 PCR) [facility] PT panel Coag (PPP)on 2023 INR Coag (PPP) [Relative time] {INR} High 0.9-1.3 [facility] Comment on above: Order Comment: Speci men Type: BLOOD SPECIMEN Ordering Facility: [facility] Address: [address] [place] [address] Result Comment: Halle min K Antagonist (VKA) Therapeutic Range: INR 2 to 3 (Target INR of 2.5) Note: For patients treated with VKA drugs, such as warfarin, the [employer] 2012 Guideline recommends [...] Chest 2012, 141:7S-47S Mitzi RA, et al. [facility] 2017, 70: 252-289 Performed By: #### 1 4196-0, 71942-0 #### [facility] CLIA [id number] [address] [place] [address] [place] PT Coag (PPP) [Time] 76.9 s High 9.7-13.0 [facility] Comment on above: Order Comment: Speci men Type: BLOOD SPECIMEN Ordering Facility: [facility] Address: [address] [place] [address] Performed By: #### 1 4196-0, 94096-4 #### [facility] CLIA [id number] [address] [place] Platelet mean volume Nicholas-Ec ker (Bld) [Entitic vol]Ordered By: Bob Elias on 03-19-2023 Platelet mean volume (Bld) [Entitic vol] 10.3 fL 6.2-12.0 [facility] RBC Auto (Bld) [#/Vol]Ordere d By: Bob Elias on 03-19-2023 RBC (Bld) [#/Vol] 3.40 10*6/uL 4.2-5.4 [facility] Serum or plasma calcium monica urement (mass/volume)Ordered By: Bob Elias on 03-19-2023 Calcium [Mass/Vol] 9.1 mg/dL 8.5-10.1 [facility] Serum or plasma creatinine m easurement (mass/volume)Ordered [...] 03-19-2023 Urea nitrogen [Mass/Vol] 34 mg/dL 7-18 [facility] Thin prep Papanicolaou smear with manual screeningOrdered By: Bob Elias on 03-19-2023 Thin prep Papanicolaou smear with manual screening 4 - [facility] COVID & INFLUENZA A/B & RSV NAAT, ROUTINEon 02-07-2023 FLUAV RNA GWEN+probe Ql (Unsp spec) Not detected Not Detected [facility] FLUBV RNA GWEN+probe Ql (Unsp spec) Not detected Not Detected [facility] RSV A RNA GWEN+probe Ql (Unsp spec) Not detected Not Detected [facility] SARS-CoV-2 (COVID-19) RNA GWEN+probe Ql (Resp) Not detected See comment [facility] XR CHEST 2V FRONTAL/LATon [facility] XR Chest PA and Lateralon IMPRESSION: Mild prominence markings RIGHT lung base may be due to known RIGHT middle lobe bronchiectasis. Small infiltrate cannot be excluded. Food Production Supervisor: PSCB Transcribe Date/Time: Feb 07 2023 11:42A Dictated by : JASMYN MÉNDEZ MD This examination was interpreted and the report reviewed and electronically signed by: JASMYN MÉNDEZ MD on Feb 07 2023 11:46AM [facility] DIVISION OF RADIOLOGY * * *Final [...] soft tissues: Unremarkable. DIVISION OF RADIOLOGY Provider, Narayan Wood [facility] - 02/07/2023 * * *Final Report* [...] lobe bronchiectasis. Small infiltrate cannot be excluded. Food Production Supervisor: PSCB Transcribe Date/Time: Feb 07 2023 11:42A Dictated by : JASMYN MÉNDEZ MD This examination was interpreted and the report reviewed and electronically signed by: JASMYN MÉNDEZ MD on Feb 07 2023 11:46AM EST [facility] Radiology Study observation (narrative) [facility] XR Chest PA and LateralOrder ed By: Ccf Provider on 02-07-2023 [facility] INR (POC)on 01-04-2023 INR Coag (PPP) [Relative time] 2.6 {INR} High 0.8 - 1.2 [facility] Internal Quality Check Acceptable Cl [facility] SABINO SCREENING W TOMOon 11-17 [facility] ECG COMPLETEon 08-30-2022 Atrial Rate 75 BPM [facility] Calculated P Debary 63 degrees [facility] Calculated R Debary 46 degrees [facility] Calculated T Debary 58 degrees [facility] P-R Interval 156 ms [facility] QRS Duration 62 ms [facility] QT Interval 358 ms [facility] QTC Calculation (Bazett) 399 ms [facility] Ventricular Rate 75 BPM [facility] CT CHEST WO IVCONon 07-21-19 23 [facility] XR Pelvis and Hip - left AP and Lateral frogon 12-31-2021 IMPRESSION: No acute pathology. 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 Food Production Supervisor: KRYSTAL Transcribe Date/Time: Dec 31 2021 11:55A Dictated by : BANDAR BELL DO This examination was interpreted and the report reviewed and electronically signed by: BANDAR BELL DO on Dec 31 2021 11:58AM [facility] DIVISION OF RADIOLOGY * * *Final [...] dislocations are seen. DIVISION OF RADIOLOGY Provider, [facility] - 12/31/2021 * * *Final Report* * [...] acute pathology. 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 Food Production Supervisor: PSCB Transcribe Date/Time: Dec 31 2021 11:55A Dictated by : BANDAR BELL DO This examination was interpreted and the report reviewed and electronically signed by: BANDAR BELL DO on Dec 31 2021 11:58AM EST [facility] Radiology Study observation (narrative) Christiane castañeda [facility] XR Pelvis and Hip - left AP and Lateral frogOrdered By: Ccf Provider on 12-31-2021 [facility] No Panel Informationon 10-18 [facility] SABINO DIAGNOSTIC LTon 10-13-19 [facility] US BREAST LTD LTon [facility] SABINO SCREENINGon 09-05-2021 [facility] INR in Blood by Coagulation assayon 07-07-2021 INR Coag (Bld) [Relative time] 1.7 {INR} [facility] Work Phone: Laboratory - Coagulationon 07-07-2021 PT Coag (PPP) [Time] 19.5 s 11.7-14.9 [facility] Work Phone: Histoplasma Ag, Urineon 02-19 Histoplasma Ag,Urine Not Detected Normal [facility] Comment on above: Performed By: #### H ISUO #### The performing lab is in the report. Interpretation Not Detected Normal Not Detected [facility] Comment on above: Result Comment: INTE RPRETIVE [...] histoplasmosis. Test developed and characteristics determined by [employer]. See Compliance Statement B: [email or web address] Performed by [employer], [address] [place] [address] [email or web address], Christopher Yen MD - Lab. Director Performed By: #### H ISUO #### The performing lab is in the report. Vital Signs Date Time Vital Sign Value Performing Clinician Facility 10-02-2024 09:57-0400 Body height 160.[address] Claudine Durán MD Work Phone: 6(966)094-053723 [place] [address] 08-27-2024 16:27-0400 Body temperature 97.8 [degF] Dr. Claudine Durán MD Work Phone: 5(912)204-502923 [place] [address] 08-27-2024 16:27-0400 Diastolic blood pressure 53 mm[Hg] Dr. Claudine Durán MD Work Phone: 7(008)732-777123 [place] [address] 08-27-2024 16:27-0400 Heart rate 89 /min Dr. Claudine Durán MD Work Phone: 3(145)331-526723 [place] [address] 08-27-2024 16:27-0400 Respiratory rate 18 /min Dr. Claudine Durán MD Work Phone: 7(389)153-087623 [place] [address] 08-27-2024 16:27-0400 SaO2% (BldA) [Mass fraction] 97 % Dr. Claudine Durán MD Work Phone: 8(659)437-847823 [place] [address] 08-27-2024 16:27-0400 Systolic blood pressure 127 mm[Hg] Dr. Claudine Durán MD Work Phone: 1(980)615-600623 [place] [address] 08-27-2024 05:47-0400 Body mass index (BMI) [Ratio] 24 kg/m2 Dr. Claudine Durán MD Work Phone: 4(764)085-625223 [place] [address] 08-27-2024 05:47-0400 Body weight 61.[address] Claudine Durán MD Work Phone: 6(961)772-000623 [place] [address] 08-23-2024 11:59-0400 Body temperature 98.2 [degF] Dr. Claudine Durán MD Work Phone: 2(293)658-163823 [place] [address] 08-23-2024 11:59-0400 Diastolic blood pressure 82 mm[Hg] Dr. Claudine Durán MD Work Phone: 2(682)625-318057 [place] [address] 08-23-2024 11:59-0400 Heart rate 80 /min Dr. Claudine Durán MD Work Phone: 1(872)091-736023 [place] [address] 08-23-2024 11:59-0400 Respiratory rate 16 /min Dr. Claudine Durán MD Work Phone: 4(991)243-233723 [place] [address] 08-23-2024 11:59-0400 SaO2% (BldA) [Mass fraction] 100 % Dr. Claudine Durán MD Work Phone: 3(243)923-867523 [place] [address] 08-23-2024 11:59-0400 Systolic blood pressure 148 mm[Hg] Dr. Claudine Durán MD Work Phone: 0(568)484-472123 [place] [address] 08-23-2024 11:43-0400 Body height 160.[address] Claudine Durán MD Work Phone: 0(980)925-697323 [place] [address] 08-23-2024 11:43-0400 Body mass index (BMI) [Ratio] 22.8 kg/m2 Dr. Claudine Durán MD Work Phone: 3(233)078-442323 [place] [address] 08-23-2024 11:43-0400 Body weight 58.[address] Claudine Durán MD Work Phone: 2(747)740-235423 [place] [address] 08-21-2024 11:14-0400 Body weight 59.[address] Claudine Durán MD Work Phone: 6(335)249-770357 [place] [address] 07-24-2024 10:25-0400 Body height 160.[address] Claudine Durán MD Work Phone: 4(260)383-651657 [place] [address] 07-24-2024 10:25-0400 Body weight 60.[address] Claudine Durán MD Work Phone: 0(415)943-081623 [place] [address] 07-22-2024 14:20-0400 Body height 157.5 cm Brissa Chester APRN.CNP Work Phone: [facility] 07-22-2024 14:20-0400 Body mass index (BMI) [Ratio] 23.67 kg/m2 Brissa Chester GATE CLERK.TREE DOCTOR Work Phone: [facility] 07-22-2024 14:20-0400 Body weight 58.7 kg Brissa Chester GATE CLERK.TREE DOCTOR Work Phone: [facility] 07-22-2024 14:20-0400 Diastolic blood pressure 65 mm[Hg] Brissa Chester GATE CLERK.TREE DOCTOR Work Phone: [facility] 07-22-2024 14:20-0400 Heart rate 75 /min Brissa Chester GATE CLERK.TREE DOCTOR Work Phone: [facility] 07-22-2024 14:20-0400 Respiratory rate 18 /min Brissa Chester GATE CLERK.TREE DOCTOR Work Phone: [facility] 07-22-2024 14:20-0400 SaO2% (BldA) [Mass fraction] 98 % Brissa Chester GATE CLERK.TREE DOCTOR Work Phone: [facility] 07-22-2024 14:20-0400 Systolic blood pressure 140 mm[Hg] Brissa Chester GATE CLERK.TREE DOCTOR Work Phone: [facility] 06-27-2024 08:19-0400 Body height 160.[address] Claudine Durán MD Work Phone: [facility] 06-27-2024 08:19-0400 Body weight 58.[address] Claudine Durán MD Work Phone: [facility] 06-20-2024 10:09-0400 Body mass index (BMI) [Ratio] 22.8 kg/m2 Dr. Claudine Durán MD Work Phone: [facility] 06-20-2024 10:09-0400 Body weight 58.[address] Claudine Durán MD Work Phone: [facility] 06-20-2024 10:09-0400 Diastolic blood pressure 74 mm[Hg] Dr. Claudine Durán MD Work Phone: [facility] 06-20-2024 10:09-0400 Heart rate 85 /min Dr. Claudine Durán MD Work Phone: 8(925)318-153557 [place] [address] 06-20-2024 10:09-0400 Respiratory rate 18 /min Dr. Claudine Durán MD Work Phone: 3(127)203-070723 [place] [address] 06-20-2024 10:09-0400 SaO2% (BldA) [Mass fraction] 98 % Dr. Claudine Durán MD Work Phone: 5(962)133-841923 [place] [address] 06-20-2024 10:09-0400 Systolic blood pressure 125 mm[Hg] Dr. Claudine Durán MD Work Phone: 0(686)010-113523 [place] [address] 05-28-2024 08:23-0400 Body mass index (BMI) [Ratio] 21.9 kg/m2 Dr. Claudine Durán MD Work Phone: 8(348)460-218523 [place] [address] 05-28-2024 08:20-0400 Body height 160.[address] Claudine Durán MD Work Phone: 0(789)529-711423 [place] [address] 05-28-2024 08:20-0400 Body weight 56.[address] Claudine Durán MD Work Phone: 1(603)739-477723 [place] [address] 05-28-2024 08:10-0400 Diastolic blood pressure 54 mm[Hg] Dr. Claudine Durán MD Work Phone: 5(163)431-564623 [place] [address] 05-28-2024 08:10-0400 Heart rate 84 /min Dr. Claudine Durán MD Work Phone: 6(493)370-603923 [place] [address] 05-28-2024 08:10-0400 SaO2% (BldA) [Mass fraction] 98 % Dr. Claudine Durán MD Work Phone: 3(288)524-146323 [place] [address] 05-28-2024 08:10-0400 Systolic blood pressure 100 mm[Hg] Dr. Claudine Durán MD Work Phone: 5(306)670-861223 [place] [address] 05-20-2024 12:53-0400 Body height 159.5 cm Jimbo Swanson GATE CLERK.RPG PROGRAMMER Work Phone: [facility] 05-20-2024 12:53-0400 Body mass index (BMI) [Ratio] 23.23 kg/m2 Jimbo Swanson GATE CLERK.RPG PROGRAMMER Work Phone: [facility] 05-20-2024 12:53-0400 Body weight 59.1 kg Jimbo Swanson GATE CLERK.RPG PROGRAMMER Work Phone: [facility] 05-20-2024 12:53-0400 Diastolic blood pressure 65 mm[Hg] Jimbo Swanson GATE CLERK.RPG PROGRAMMER Work Phone: [facility] 05-20-2024 12:53-0400 Heart rate 92 /min Jimbo Swanson GATE CLERK.RPG PROGRAMMER Work Phone: [facility] 05-20-2024 12:53-0400 Respiratory rate 16 /min Jimbo Swanson GATE CLERK.RPG PROGRAMMER Work Phone: [facility] 05-20-2024 12:53-0400 Systolic blood pressure 113 mm[Hg] Jimbo Swanson GATE CLERK.RPG PROGRAMMER Work Phone: [facility] 05-05-2024 08:34-0400 Diastolic blood pressure 71 mm[Hg] Adalid Maret GATE CLERK.TREE DOCTOR Work Phone: [facility] 05-05-2024 08:34-0400 Heart rate 82 /min Adalid Maret GATE CLERK.TREE DOCTOR Work Phone: [facility] 05-05-2024 08:34-0400 Systolic blood pressure 139 mm[Hg] Adalid Maret GATE CLERK.TREE DOCTOR Work Phone: [facility] 04-30-2024 13:04-0400 Body height 160 cm [facility] 04-30-2024 13:04-0400 Body mass index (BMI) [Ratio] 23.21 kg/m2 [facility] 04-30-2024 13:04-0400 Body weight 59.42 kg [facility] 04-30-2024 13:04-0400 Diastolic blood pressure 63 mm[Hg] [facility] 04-30-2024 13:04-0400 Heart rate 88 /min [facility] 04-30-2024 13:04-0400 Respiratory rate 16 /min [facility] 04-30-2024 13:04-0400 Systolic blood pressure 115 mm[Hg] [facility] 04-21-2024 10:44-0500 Body height 160 cm Geno Hart MD Work Phone: [facility] 04-21-2024 10:44-0500 Body mass index (BMI) [Ratio] 23.82 kg/m2 Geno Hart MD Work Phone: [facility] 04-21-2024 10:44-0500 Body temperature 97.9 [degF] Geno Hart MD Work Phone: [facility] 04-21-2024 10:44-0500 Body weight 61 kg Geno Hart MD Work Phone: [facility] 04-21-2024 10:44-0500 Diastolic blood pressure 84 mm[Hg] Geno Hart MD Work Phone: [facility] 04-21-2024 10:44-0500 Heart rate 103 /min Geno Hart MD Work Phone: [facility] 04-21-2024 10:44-0500 Respiratory rate 18 /min Geno Hart MD Work Phone: [facility] 04-21-2024 10:44-0500 SaO2% (BldA) [Mass fraction] 97 % Geno Hart MD Work Phone: [facility] 04-21-2024 10:44-0500 Systolic blood pressure 146 mm[Hg] Geno Hart MD Work Phone: [facility] 03-21-2024 09:28-0500 Body height 160 cm Juvencio Saeed MD Work Phone: [facility] 03-21-2024 09:28-0500 Body mass index (BMI) [Ratio] 23.03 kg/m2 Juvencio Saeed MD Work Phone: [facility] 03-21-2024 09:28-0500 Body weight 58.97 kg Juvencio Saeed MD Work Phone: [facility] 03-21-2024 09:28-0500 Diastolic blood pressure 77 mm[Hg] Juvencio Saeed MD Work Phone: [facility] 03-21-2024 09:28-0500 Heart rate 96 /min Juvencio Saeed MD Work Phone: [facility] 03-21-2024 09:28-0500 Respiratory rate 18 /min Juvencio Saeed MD Work Phone: [facility] 03-21-2024 09:28-0500 SaO2% (BldA) [Mass fraction] 96 % Juvencio Saeed MD Work Phone: [facility] Comment on above: RA 03-21-2024 09:28-0500 Systolic blood pressure 141 mm[Hg] Juvencio Saeed MD Work Phone: [facility] 02-29-2024 16:45-0500 Body mass index (BMI) [Ratio] 22.92 kg/m2 Claudine Durán MD Work Phone: [facility] 02-29-2024 16:45-0500 Body temperature 98.8 [degF] Claudine Durán MD Work Phone: [facility] 02-29-2024 16:45-0500 Body weight 58.7 kg Claudine Durán MD Work Phone: [facility] 02-29-2024 16:45-0500 Diastolic blood pressure 86 mm[Hg] Claudine Durán MD Work Phone: [facility] 02-29-2024 16:45-0500 Heart rate 85 /min Claudine Durán MD Work Phone: [facility] 02-29-2024 16:45-0500 Respiratory rate 16 /min Claudine Durán MD Work Phone: [facility] 02-29-2024 16:45-0500 SaO2% (BldA) [Mass fraction] 97 % Claudine Durán MD Work Phone: [facility] 01-10-2025 16:45-0500 Systolic blood pressure 138 mm[Hg] Claudine Durán MD Work Phone: [facility] 01-02-2024 09:09-0500 Body height 160 cm Ines Drew MD Work Phone: [facility] 01-02-2024 09:09-0500 Body mass index (BMI) [Ratio] 21.97 kg/m2 Ines Drew MD Work Phone: [facility] 01-02-2024 09:09-0500 Body weight 56.25 kg Ines Drew MD Work Phone: [facility] 01-02-2024 09:09-0500 Diastolic blood pressure 57 mm[Hg] Ines Drew MD Work Phone: [facility] 01-02-2024 09:09-0500 Heart rate 81 /min Ines Drew MD Work Phone: [facility] 01-02-2024 09:09-0500 SaO2% (BldA) [Mass fraction] 97 % Ines Drew MD Work Phone: [facility] 01-02-2024 09:09-0500 Systolic blood pressure 124 mm[Hg] Ines Drew MD Work Phone: [facility] 12-18-2023 11:02-0400 Body height 160 cm Geno Hart MD Work Phone: [facility] 12-18-2023 11:02-0400 Body mass index (BMI) [Ratio] 22.3 kg/m2 Geno Hart MD Work Phone: [facility] 12-18-2023 11:02-0400 Body temperature 98.71 [degF] Geno Hart MD Work Phone: [facility] 12-18-2023 11:02-0400 Body weight 57.11 kg Geno Hart MD Work Phone: [facility] 12-18-2023 11:02-0400 Diastolic blood pressure 75 mm[Hg] Geno Hart MD Work Phone: [facility] 12-18-2023 11:02-0400 Heart rate 84 /min Geno Hart MD Work Phone: [facility] 12-18-2023 11:02-0400 Respiratory rate 16 /min Geno Hart MD Work Phone: [facility] 12-18-2023 11:02-0400 SaO2% (BldA) [Mass fraction] 98 % Geno Hart MD Work Phone: [facility] 12-18-2023 11:02-0400 Systolic blood pressure 146 mm[Hg] Geno Hart MD Work Phone: [facility] 10-18-2023 10:03-0400 Body height 160 cm Bibi Alegria APRN.TREE DOCTOR Work Phone: [facility] 10-18-2023 10:03-0400 Body mass index (BMI) [Ratio] 20.62 kg/m2 Bibi Alegria APRN.TREE DOCTOR Work Phone: [facility] 10-18-2023 10:03-0400 Body weight 52.8 kg Bibi Alegria APRN.TREE DOCTOR Work Phone: [facility] 10-18-2023 10:03-0400 Diastolic blood pressure 60 mm[Hg] Bibi Alegria APRN.TREE DOCTOR Work Phone: [facility] 10-18-2023 10:03-0400 Heart rate 82 /min Bibi Alegria APRN.TREE DOCTOR Work Phone: [facility] 10-18-2023 10:03-0400 SaO2% (BldA) [Mass fraction] 99 % Bibi Alegria APRN.TREE DOCTOR Work Phone: [facility] 10-18-2023 10:03-0400 Systolic blood pressure 120 mm[Hg] Bibi Alegria APRN.TREE DOCTOR Work Phone: [facility] 10-11-2023 13:05-0400 Body mass index (BMI) [Ratio] 20.54 kg/m2 Jimbo Swanson GATE CLERK.RPG PROGRAMMER Work Phone: [facility] 10-11-2023 13:05-0400 Body weight 52.6 kg Jimbo Swanson GATE CLERK.RPG PROGRAMMER Work Phone: [facility] 10-11-2023 13:05-0400 Diastolic blood pressure 62 mm[Hg] Jimbo Swanson GATE CLERK.RPG PROGRAMMER Work Phone: [facility] 10-11-2023 13:05-0400 Heart rate 68 /min Jimbo Swanson GATE CLERK.RPG PROGRAMMER Work Phone: [facility] 10-11-2023 13:05-0400 Respiratory rate 16 /min Jimbo Swanson GATE CLERK.RPG PROGRAMMER Work Phone: [facility] 10-11-2023 13:05-0400 Systolic blood pressure 107 mm[Hg] Jimbo Swanson GATE CLERK.RPG PROGRAMMER Work Phone: [facility] 08-28-2023 08:48-0400 Body height 160 cm Geno Hart MD Work Phone: [facility] 08-28-2023 08:48-0400 Body mass index (BMI) [Ratio] 23.45 kg/m2 Geno Hart MD Work Phone: [facility] 08-28-2023 08:48-0400 Body temperature 98.29 [degF] Geno Hart MD Work Phone: [facility] 08-28-2023 08:48-0400 Body weight 60.06 kg Geno Hart MD Work Phone: [facility] 08-28-2023 08:48-0400 Diastolic blood pressure 69 mm[Hg] Geno Hart MD Work Phone: [facility] 08-28-2023 08:48-0400 Heart rate 79 /min Geno Hart MD Work Phone: [facility] 08-28-2023 08:48-0400 Respiratory rate 18 /min Geno Hart MD Work Phone: [facility] 08-28-2023 08:48-0400 SaO2% (BldA) [Mass fraction] 98 % Geno Hart MD Work Phone: [facility] 08-28-2023 08:48-0400 Systolic blood pressure 129 mm[Hg] Geno Hart MD Work Phone: [facility] 08-27-2023 08:25-0400 Body height 160 cm William Messina DO Work Phone: [facility] 08-27-2023 08:25-0400 Body mass index (BMI) [Ratio] 22.67 kg/m2 William Messina DO Work Phone: [facility] 08-27-2023 08:25-0400 Body weight 58.06 kg William Messina DO Work Phone: [facility] 08-27-2023 08:25-0400 Diastolic blood pressure 68 mm[Hg] William Messina DO Work Phone: [facility] 08-27-2023 08:25-0400 Heart rate 81 /min William Messina DO Work Phone: [facility] 08-27-2023 08:25-0400 SaO2% (BldA) [Mass fraction] 99 % William Messina DO Work Phone: [facility] 08-27-2023 08:25-0400 Systolic blood pressure 116 mm[Hg] William Messina DO Work Phone: [facility] 08-22-2023 10:38-0400 Body mass index (BMI) [Ratio] 23.19 kg/m2 Claudine Durán MD Work Phone: [facility] 08-22-2023 10:38-0400 Body temperature 96.01 [degF] Claudine Durán MD Work Phone: [facility] 08-22-2023 10:38-0400 Body weight 59.38 kg Claudine Durán MD Work Phone: [facility] 08-22-2023 10:38-0400 Diastolic blood pressure 72 mm[Hg] Claudine Durán MD Work Phone: [facility] 08-22-2023 10:38-0400 Heart rate 70 /min Claudine Durán MD Work Phone: [facility] 08-22-2023 10:38-0400 Respiratory rate 18 /min Claudine Durán MD Work Phone: [facility] 08-22-2023 10:38-0400 SaO2% (BldA) [Mass fraction] 98 % Claudine Durán MD Work Phone: [facility] 08-22-2023 10:38-0400 Systolic blood pressure 116 mm[Hg] Claudine Durán MD Work Phone: [facility] 08-08-2023 14:39-0400 Body mass index (BMI) [Ratio] 22.32 kg/m2 Twyla Mason GATE CLERK.TREE DOCTOR Work Phone: [facility] 08-08-2023 14:39-0400 Body weight 57.15 kg Twyla Mason GATE CLERK.TREE DOCTOR Work Phone: [facility] 08-08-2023 14:39-0400 Diastolic blood pressure 72 mm[Hg] Twyla Mason GATE CLERK.TREE DOCTOR Work Phone: [facility] 08-08-2023 14:39-0400 Heart rate 78 /min Twyla Mason GATE CLERK.TREE DOCTOR Work Phone: [facility] 08-08-2023 14:39-0400 Systolic blood pressure 136 mm[Hg] Twyla Mason GATE CLERK.TREE DOCTOR Work Phone: [facility] 07-10-2023 14:22-0400 Body mass index (BMI) [Ratio] 21.79 kg/m2 Jimbo Swanson GATE CLERK.RPG PROGRAMMER Work Phone: [facility] 07-10-2023 14:22-0400 Body weight 55.79 kg Jimbo Swanson GATE CLERK.RPG PROGRAMMER Work Phone: [facility] 07-10-2023 14:22-0400 Diastolic blood pressure 66 mm[Hg] Jimbo Swanson GATE CLERK.RPG PROGRAMMER Work Phone: [facility] 07-10-2023 14:22-0400 Heart rate 94 /min Jimbo Swanson GATE CLERK.RPG PROGRAMMER Work Phone: [facility] 07-10-2023 14:22-0400 Respiratory rate 16 /min Jimbo Swanson GATE CLERK.RPG PROGRAMMER Work Phone: [facility] 07-10-2023 14:22-0400 Systolic blood pressure 119 mm[Hg] Jimbo Swanson GATE CLERK.RPG PROGRAMMER Work Phone: [facility] 06-05-2023 14:44-0400 Body mass index (BMI) [Ratio] 21.91 kg/m2 Claudine Durán MD Work Phone: [facility] 06-05-2023 14:44-0400 Body temperature 98.2 [degF] Claudine Durán MD Work Phone: [facility] 06-05-2023 14:44-0400 Body weight 56.11 kg Claudine Durán MD Work Phone: [facility] 06-05-2023 14:44-0400 Diastolic blood pressure 74 mm[Hg] Claudine Durán MD Work Phone: [facility] 06-05-2023 14:44-0400 Heart rate 93 /min Claudine Durán MD Work Phone: [facility] 06-05-2023 14:44-0400 Respiratory rate 18 /min Claudine Durán MD Work Phone: [facility] 06-05-2023 14:44-0400 SaO2% (BldA) [Mass fraction] 96 % Claudine Durán MD Work Phone: [facility] 06-05-2023 14:44-0400 Systolic blood pressure 122 mm[Hg] Claudine Durán MD Work Phone: [facility] 04-30-2023 12:45-0400 Body temperature 97.6 [degF] Dr. Claudine Durán Work Phone: 8(653)440-159257 [place] [address] 04-30-2023 12:45-0400 Diastolic blood pressure 61 mm[Hg] Dr. Claudine Durán Work Phone: 3(368)722-809923 [place] [address] 04-30-2023 12:45-0400 Heart rate 97 /min Dr. Claudine Durán Work Phone: 6(257)032-620723 [place] [address] 04-30-2023 12:45-0400 Respiratory rate 16 /min Dr. Claudine Durán Work Phone: 7(219)029-107323 [place] [address] 04-30-2023 12:45-0400 SaO2% (BldA) [Mass fraction] 95 % Dr. Claudine Durán Work Phone: 9(633)055-656323 [place] [address] 04-30-2023 12:45-0400 Systolic blood pressure 102 mm[Hg] Dr. Claudine Durán Work Phone: 6(878)335-001223 [place] [address] 04-25-2023 12:25-0500 Body height 160.[address] Claudine Durán Work Phone: 7(683)406-602023 [place] [address] 04-25-2023 12:25-0500 Body weight 54.[address] Claudine Durán Work Phone: 6(129)763-709223 [place] [address] 04-24-2023 12:11-0500 Body mass index (BMI) [Ratio] 21.2 kg/m2 Dr. Claudine Durán Work Phone: 9(694)722-496023 [place] [address] 04-16-2023 07:18-0500 Heart rate 94 /min Dr. Claudine Durán Work Phone: 0(566)295-309023 [place] [address] 04-16-2023 07:18-0500 Respiratory rate 18 /min Dr. Claudine Durán Work Phone: 4(675)166-632623 [place] [address] 04-16-2023 07:18-0500 SaO2% (BldA) [Mass fraction] 98 % Dr. Claudine Durán Work Phone: 0(953)638-132723 [place] [address] 04-15-2023 14:36-0500 Body temperature 98.5 [degF] Dr. Claudine Durán Work Phone: 0(096)893-529723 [place] [address] 04-15-2023 14:36-0500 Diastolic blood pressure 61 mm[Hg] Dr. Claudine Durán Work Phone: 9(642)049-782023 [place] [address] 04-15-2023 14:36-0500 Systolic blood pressure 106 mm[Hg] Dr. Claudine Durán Work Phone: 1(054)808-820223 [place] [address] 04-11-2023 15:11-0500 Body height 160.[address] Claudine Durán Work Phone: 7(316)096-713523 [place] [address] 04-11-2023 15:11-0500 Body weight 58.[address] Claudine Durán Work Phone: 0(222)318-803123 [place] [address] 04-10-2023 14:06-0500 Body mass index (BMI) [Ratio] 22.9 kg/m2 Dr. Claudine Durán Work Phone: 5(778)819-240023 [place] [address] 04-05-2023 08:40-0500 Body temperature 98.1 [degF] Dr. Claudine Durán Work Phone: 0(859)991-256423 [place] [address] 04-05-2023 08:40-0500 Diastolic blood pressure 65 mm[Hg] Dr. Claudine Durán Work Phone: 0(152)296-303623 [place] [address] 04-05-2023 08:40-0500 Heart rate 98 /min Dr. Claudine Durán Work Phone: 3(339)878-599323 [place] [address] 04-05-2023 08:40-0500 Respiratory rate 16 /min Dr. Claudine Durán Work Phone: 9(526)690-987523 [place] [address] 04-05-2023 08:40-0500 SaO2% (BldA) [Mass fraction] 96 % Dr. Claudine Durán Work Phone: 1(629)877-620723 [place] [address] 04-05-2023 08:40-0500 Systolic blood pressure 117 mm[Hg] Dr. Claudine Durán Work Phone: 6(474)301-001923 [place] [address] 04-05-2023 01:48-0500 Body mass index (BMI) [Ratio] 21.5 kg/m2 Dr. Claudine Durán Work Phone: 6(182)747-290623 [place] [address] 04-05-2023 01:48-0500 Body weight 55.[address] Claudine Durán Work Phone: 4(866)698-145623 [place] [address] 04-04-2023 13:52-0500 Body height 160.[address] Claudine Durán Work Phone: 0(142)134-415723 [place] [address] 03-31-2023 20:00-0500 Diastolic blood pressure 50 mm[Hg] Dr. Claudine Durán Work Phone: 2(580)101-696323 [place] [address] 03-31-2023 20:00-0500 Heart rate 77 /min Dr. Claudine Durán Work Phone: 2(784)384-769923 [place] [address] 03-31-2023 20:00-0500 Respiratory rate 17 /min Dr. Claudine Durán Work Phone: 5(001)042-351723 [place] [address] 03-31-2023 20:00-0500 SaO2% (BldA) [Mass fraction] 98 % Dr. Claudine Durán Work Phone: 5(063)960-323023 [place] [address] 03-31-2023 20:00-0500 Systolic blood pressure 108 mm[Hg] Dr. Claudine Durán Work Phone: 8(052)233-735323 [place] [address] 03-31-2023 16:48-0500 Body height 160.[address] Claudine Durán Work Phone: 8(180)662-188223 [place] [address] 03-31-2023 16:48-0500 Body mass index (BMI) [Ratio] 23.4 kg/m2 Dr. Claudine Durán Work Phone: 9(891)318-046923 [place] [address] 03-31-2023 16:48-0500 Body temperature 98.3 [degF] Dr. Claudine Durán Work Phone: 4(563)615-779323 [place] [address] 03-31-2023 16:48-0500 Body weight 60.[address] Claudine Durán Work Phone: 4(634)746-635423 [place] [address] 02-07-2024 20:54-0500 Diastolic blood pressure 79 mm[Hg] Dr. Claudine Durán Work Phone: 8(272)253-394923 [place] [address] 03-28-2023 20:54-0500 Heart rate 91 /min Dr. Claudine Durán Work Phone: 4(137)317-343423 [place] [address] 03-28-2023 20:54-0500 Respiratory rate 19 /min Dr. Claudine Durán Work Phone: 5(002)443-502523 [place] [address] 03-28-2023 20:54-0500 SaO2% (BldA) [Mass fraction] 97 % Dr. Claudine Durán Work Phone: 5(388)932-217923 [place] [address] 03-28-2023 20:54-0500 Systolic blood pressure 121 mm[Hg] Dr. Claudine Durán Work Phone: 0(711)644-278023 [place] [address] 03-28-2023 16:33-0500 Body height 160.[address] Claudine Durán Work Phone: 4(809)279-886723 [place] [address] 03-28-2023 16:33-0500 Body mass index (BMI) [Ratio] 23.7 kg/m2 Dr. Claudine Durán Work Phone: 8(113)227-887623 [place] [address] 03-28-2023 16:33-0500 Body temperature 97.3 [degF] Dr. Claudine Durán Work Phone: 3(994)848-628623 [place] [address] 03-28-2023 16:33-0500 Body weight 60.[address] Claudine Durán Work Phone: 7(031)665-103323 [place] [address] 03-27-2023 13:43-0500 Heart rate 101 /min Dr. Claudine Durán Work Phone: 9(759)075-426123 [place] [address] 03-27-2023 13:43-0500 Respiratory rate 19 /min Dr. Claudine Durán Work Phone: 9(563)180-665923 [place] [address] 03-27-2023 10:00-0500 Body temperature 98.2 [degF] Dr. Claudine Durán Work Phone: 7(978)439-470457 [place] [address] 03-27-2023 10:00-0500 Diastolic blood pressure 63 mm[Hg] Dr. Claudine Durán Work Phone: [facility] 03-27-2023 10:00-0500 SaO2% (BldA) [Mass fraction] 94 % Dr. Claudine Durán Work Phone: [facility] 03-27-2023 10:00-0500 Systolic blood pressure 105 mm[Hg] Dr. Claudine Durán Work Phone: [facility] 03-27-2023 05:41-0500 Body mass index (BMI) [Ratio] 22.6 kg/m2 Dr. Claudine Durán Work Phone: [facility] 03-27-2023 05:41-0500 Body weight 58.[address] Claudine Durán Work Phone: [facility] 03-26-2023 15:00-0500 Diastolic blood pressure 75 mm[Hg] [facility] 03-26-2023 15:00-0500 Heart rate 87 /min [facility] 03-26-2023 15:00-0500 Respiratory rate 19 /min [facility] 03-26-2023 15:00-0500 SaO2% (BldA) [Mass fraction] 95 % [facility] 03-26-2023 15:00-0500 Systolic blood pressure 128 mm[Hg] [facility] 03-26-2023 10:48-0500 Body height 165.[address] [facility] 03-26-2023 10:48-0500 Body mass index (BMI) [Ratio] 23.3 kg/m2 [facility] 03-26-2023 10:48-0500 Body temperature 97.3 [degF] [facility] 03-26-2023 10:48-0500 Body weight 63.[address] [facility] 03-19-2023 16:51-0500 Diastolic blood pressure 65 mm[Hg] [facility] 03-19-2023 16:51-0500 Systolic blood pressure 117 mm[Hg] [facility] 03-19-2023 10:07-0500 Body height 165.[address] [facility] 03-19-2023 10:07-0500 Body mass index (BMI) [Ratio] 20.3 kg/m2 [facility] 03-19-2023 10:07-0500 Body temperature 98.3 [degF] [facility] 03-19-2023 10:07-0500 Body weight 55.[address] [facility] 03-19-2023 10:07-0500 Heart rate 111 /min [facility] 03-19-2023 10:07-0500 Respiratory rate 16 /min [facility] 03-19-2023 10:07-0500 SaO2% (BldA) [Mass fraction] 100 % [facility] 02-07-2023 10:36-0500 Body temperature 98.6 [degF] Adri Callow GATE CLERK.TREE DOCTOR Work Phone: [facility] 02-07-2023 10:36-0500 Body weight 59.69 kg Adri Callow GATE CLERK.TREE DOCTOR Work Phone: [facility] 02-07-2023 10:36-0500 Diastolic blood pressure 82 mm[Hg] Adri Callow GATE CLERK.TREE DOCTOR Work Phone: [facility] 02-07-2023 10:36-0500 Heart rate 87 /min Adri Callow GATE CLERK.TREE DOCTOR Work Phone: [facility] 02-07-2023 10:36-0500 Respiratory rate 18 /min Adri Callow GATE CLERK.TREE DOCTOR Work Phone: [facility] 02-07-2023 10:36-0500 SaO2% (BldA) [Mass fraction] 98 % Adri Callow GATE CLERK.TREE DOCTOR Work Phone: [facility] 02-07-2023 10:36-0500 Systolic blood pressure 134 mm[Hg] Adri Callow GATE CLERK.TREE DOCTOR Work Phone: [facility] 01-04-2023 10:33-0500 Body weight 58.06 kg Jimbo Swanson GATE CLERK.RPG PROGRAMMER Work Phone: [facility] 01-04-2023 10:33-0500 Diastolic blood pressure 75 mm[Hg] Jimbo Swanson GATE CLERK.RPG PROGRAMMER Work Phone: [facility] 01-04-2023 10:33-0500 Heart rate 77 /min Jimbo Swanson GATE CLERK.RPG PROGRAMMER Work Phone: [facility] 01-04-2023 10:33-0500 Respiratory rate 16 /min Jimbo Swanson GATE CLERK.RPG PROGRAMMER Work Phone: [facility] 01-04-2023 10:33-0500 Systolic blood pressure 128 mm[Hg] Jimbo Swanson GATE CLERK.RPG PROGRAMMER Work Phone: [facility] 10-27-2022 09:03-0400 Body weight 59.42 kg Jimbo Swanson GATE CLERK.RPG PROGRAMMER Work Phone: [facility] 10-27-2022 09:03-0400 Diastolic blood pressure 66 mm[Hg] Jimbo Swanson GATE CLERK.RPG PROGRAMMER Work Phone: [facility] 10-27-2022 09:03-0400 Heart rate 76 /min Jimbo Swanson GATE CLERK.RPG PROGRAMMER Work Phone: [facility] 10-27-2022 09:03-0400 Respiratory rate 16 /min Jimbo Swanson GATE CLERK.RPG PROGRAMMER Work Phone: [facility] 10-27-2022 09:03-0400 Systolic blood pressure 119 mm[Hg] Jimbo Swanson GATE CLERK.RPG PROGRAMMER Work Phone: [facility] 08-29-2022 09:26-0400 Body height 162.6 cm Rachelle Schulte GATE CLERK.TREE DOCTOR Work Phone: [facility] 08-29-2022 09:26-0400 Body weight 58.51 kg Rachelle Schulte GATE CLERK.TREE DOCTOR Work Phone: [facility] 08-29-2022 09:26-0400 Diastolic blood pressure 78 mm[Hg] Rachelle Schulte GATE CLERK.TREE DOCTOR Work Phone: [facility] 08-29-2022 09:26-0400 Heart rate 75 /min Rachelle Schulte GATE CLERK.TREE DOCTOR Work Phone: [facility] 08-29-2022 09:26-0400 SaO2% (BldA) [Mass fraction] 98 % Rachelle Schulte GATE CLERK.TREE DOCTOR Work Phone: [facility] 08-29-2022 09:26-0400 Systolic blood pressure 142 mm[Hg] Rachelle Schulte GATE CLERK.TREE DOCTOR Work Phone: [facility] 07-20-2022 09:28-0400 Body weight 58.06 kg Florence Collins MD Work Phone: [facility] 07-20-2022 09:28-0400 Diastolic blood pressure 72 mm[Hg] Florence Collins MD Work Phone: [facility] 07-20-2022 09:28-0400 Heart rate 50 /min Florence Collins MD Work Phone: [facility] 07-20-2022 09:28-0400 Respiratory rate 17 /min Florence Collins MD Work Phone: [facility] 07-20-2022 09:28-0400 SaO2% (BldA) [Mass fraction] 100 % Florence Collins MD Work Phone: [facility] 07-20-2022 09:28-0400 Systolic blood pressure 122 mm[Hg] Florence Collins MD Work Phone: [facility] 03-13-2022 10:13-0500 Body temperature 96.69 [degF] Claudine Durán MD Work Phone: [facility] 03-13-2022 10:13-0500 Body weight 59.56 kg Claudine Durán MD Work Phone: [facility] 03-13-2022 10:13-0500 Diastolic blood pressure 68 mm[Hg] Claudine Durán MD Work Phone: [facility] 03-13-2022 10:13-0500 Heart rate 75 /min Claudine Durán MD Work Phone: [facility] 03-13-2022 10:13-0500 Respiratory rate 18 /min Claudine Durán MD Work Phone: [facility] 03-13-2022 10:13-0500 SaO2% (BldA) [Mass fraction] 100 % Claudine Durán MD Work Phone: [facility] 03-13-2022 10:13-0500 Systolic blood pressure 112 mm[Hg] Claudine Durán MD Work Phone: [facility] 11-29-2021 10:07-0400 Body weight 58.51 kg Florence Collins MD Work Phone: [facility] 11-29-2021 10:07-0400 Diastolic blood pressure 76 mm[Hg] Florence Collins MD Work Phone: [facility] 11-29-2021 10:07-0400 Heart rate 92 /min Florence Collins MD Work Phone: [facility] 11-29-2021 10:07-0400 Respiratory rate 18 /min Florence Collins MD Work Phone: [facility] 11-29-2021 10:07-0400 SaO2% (BldA) [Mass fraction] 97 % Florence Collins MD Work Phone: [facility] 11-29-2021 10:07-0400 Systolic blood pressure 122 mm[Hg] Florence Collins MD Work Phone: [facility] 11-10-2021 09:22-0400 Body weight 60.33 kg Jimbo Sans GATE CLERK.RPG PROGRAMMER Work Phone: [facility] 11-10-2021 09:22-0400 Diastolic blood pressure 80 mm[Hg] Jimbo Swanson GATE CLERK.RPG PROGRAMMER Work Phone: [facility] 11-10-2021 09:22-0400 Heart rate 76 /min Jimbo Swanson GATE CLERK.RPG PROGRAMMER Work Phone: [facility] 11-10-2021 09:22-0400 Respiratory rate 16 /min Jimbo Swanson GATE CLERK.RPG PROGRAMMER Work Phone: [facility] 11-10-2021 09:22-0400 Systolic blood pressure 152 mm[Hg] Jimbo Swanson GATE CLERK.RPG PROGRAMMER Work Phone: [facility] 09-20-2021 13:45-0400 Body weight 58.51 kg Jimbo Swanson GATE CLERK.RPG PROGRAMMER Work Phone: [facility] 09-20-2021 13:45-0400 Diastolic blood pressure 64 mm[Hg] Jimbo Swanson GATE CLERK.RPG PROGRAMMER Work Phone: [facility] 09-20-2021 13:45-0400 Heart rate 85 /min Jimbo Swanson GATE CLERK.RPG PROGRAMMER Work Phone: [facility] 09-20-2021 13:45-0400 SaO2% (BldA) [Mass fraction] 96 % Jimbo Swanson GATE CLERK.RPG PROGRAMMER Work Phone: [facility] 09-20-2021 13:45-0400 Systolic blood pressure 128 mm[Hg] Jimbo Swanson GATE CLERK.RPG PROGRAMMER Work Phone: [facility] 08-12-2021 11:01-0400 Body height 162.6 cm Williamradhika Messina DO Work Phone: [facility] 08-12-2021 11:01-0400 Body weight 59.42 kg Williamradhika Messina DO Work Phone: [facility] 08-12-2021 11:01-0400 Diastolic blood pressure 74 mm[Hg] William Siddharth DO Work Phone: [facility] 08-12-2021 11:01-0400 Heart rate 72 /min William Elmoreins DO Work Phone: [facility] 08-12-2021 11:01-0400 SaO2% (BldA) [Mass fraction] 99 % Williamradhika Messina DO Work Phone: [facility] 08-12-2021 11:01-0400 Systolic blood pressure 130 mm[Hg] William Messina DO Work Phone: [facility] 07-11-2021 08:10-0400 Body weight 58.06 kg Claudine Durán MD Work Phone: [facility] 07-11-2021 08:10-0400 Diastolic blood pressure 74 mm[Hg] Claudine Durán MD Work Phone: [facility] 07-11-2021 08:10-0400 Heart rate 76 /min Claudine Durán MD Work Phone: [facility] 07-11-2021 08:10-0400 Systolic blood pressure 122 mm[Hg] Claudine Durán MD Work Phone: [facility] 2021 14:57-0400 Body height 162.6 cm Mirian Andujar MD Work Phone: [facility] 2021 14:57-0400 Body weight 58.33 kg Mirian Andujar MD Work Phone: [facility] 2021 14:57-0400 Diastolic blood pressure 67 mm[Hg] Mirian Andujar MD Work Phone: [facility] 2021 14:57-0400 Heart rate 98 /min Mirian Andujar MD Work Phone: [facility] 2021 14:57-0400 Respiratory rate 14 /min Mirian Andujar MD Work Phone: [facility] 2021 14:57-0400 SaO2% (BldA) [Mass fraction] 99 % Mirian Andujar MD Work Phone: [facility] 2021 14:57-0400 Systolic blood pressure 144 mm[Hg] Mirian Andujar MD Work Phone: [facility] 03-14-2021 08:08-0500 Body height 162.6 cm Claudine Durán MD Work Phone: [facility] 03-14-2021 08:08-0500 Body temperature 97.5 [degF] Claudien Durán MD Work Phone: [facility] 03-14-2021 08:08-0500 Body weight 58.06 kg Claudine Durán MD Work Phone: [facility] 03-14-2021 08:08-0500 Diastolic blood pressure 62 mm[Hg] Claudine Durán MD Work Phone: [facility] 03-14-2021 08:08-0500 Heart rate 87 /min Claudine Durán MD Work Phone: [facility] 03-14-2021 08:08-0500 Respiratory rate 14 /min Claudine Durán MD Work Phone: [facility] 03-14-2021 08:08-0500 SaO2% (BldA) [Mass fraction] 99 % Claudine Durán MD Work Phone: [facility] 03-14-2021 08:08-0500 Systolic blood pressure 118 mm[Hg] Claudine Durán MD Work Phone: [facility] Encounters Encounter Date Encounter Type Care Provider Facility Start: 10-16-2024 End: 10-16-2024 Telephone encounter Jimbo Swanson APRBRANDIE Work Phone: [facility] Comment on above: home health calling Start: 10-16-2024 ambulatory Zaynab elmore OLS Facility:[facility] Start: 10-13-2024 ambulatory Zaynab elmore OLS Facility:[facility] Start: 10-09-2024 ambulatory Zaynab elmore OLS Facility:[facility] Start: 10-07-2024 ambulatory Zaynab elmore OLS Facility:[facility] Start: 10-06-2024 ambulatory Zaynab elmore OLS Facility:[facility] Start: 10-02-2024 ambulatory Zaynab elmore OLS Facility:[facility] Start: 10-02-2024 Registered Referred Zaynab GarciaCabrera Roque Start: 09-29-2024 ambulatory Zaynab elmore OLS Facility:[facility] Start: 09-29-2024 Registered Referred Zaynab GarciaCabrera [facility] Start: 09-29-2024 ambulatory Claudine Reyes y:[facility] Start: 09-25-2024 ambulatory Zaynab elmore OLS Facility:[facility] Start: 09-25-2024 Registered Referred Zaynab Roque Start: 09-22-2024 ambulatory Zaynab elmore OLS Facility:[facility] Start: 09-22-2024 Registered Referred Zaynab GarciaCabrera Roque Start: 09-18-2024 ambulatory Zaynab elmore OLS Facility:[facility] Start: 09-18-2024 Registered Referred Zaynab Roque Start: 09-15-2024 ambulatory Zaynab Cherryg ousmane OLS Facility:[facility] Start: 09-15-2024 Registered Referred Zaynab Roque Start: 09-11-2024 ambulatory Zaynab elmore OLS Facility:[facility] Start: 09-11-2024 Registered Referred Zaynab Roque Start: 09-08-2024 ambulatory Zaynab elmore OLS Facility:[facility] Start: 09-08-2024 Registered Referred Zaynab Roque Start: 09-04-2024 ambulatory Zaynab elmore OLS Facility:[facility] Start: 09-04-2024 Registered Referred Zaynab Roque Start: 09-02-2024 End: 09-02-[address] Claudine Durán MD Work Phone: -[facility] Start: 09-02-2024 End: 09-02-[address] Zaynab Pina MD -[facility] Work Phone: Start: 09-01-2024 ambulatory Zaynab Dillon ousmane OLS Facility:[facility] Start: 09-01-2024 Registered Referred Zaynab Pina MD -[facility] Start: 08-28-2024 End: 08-28-2024 Patient encounter procedure Fadia Pizarro MEENU -[facility] Work Phone: Start: 08-28-2024 End: 08-28-[address] Claudine Durán MD Work Phone: -[facility] Start: 08-28-2024 Registered Referred Zaynab Pina MD -[facility] Start: 08-27-2024 Non-patient / [facility] Work Phone: Start: 08-26-2024 Non-patient / [facility] Work Phone: Start: 08-25-2024 Non-patient / Non-visit Dr. Sandy ramos [facility] Inpatient [facility]icians Work Phone: Start: 08-24-2024 Non-patient / Non-visit Dr. Edouard House MD -[place] [facility] Work Phone: Start: 08-23-2024 End: 08-27-2024 ambulatory Burak Amanda Facility:[facility] Start: 08-23-2024 End: 08-27-2024 Evaluation and management of inpatient Dr. Erasmo House MD -[facility] 3 Work Phone: Start: 08-23-2024 End: 08-27-[address] Claudine Durán MD Work Phone: -Medical Surgical 3 Start: 08-21-2024 End: 08-21-2024 Anticoagulant drug monitoring [facility] Work Phone: [facility] [place] Comment on above: Personal history of DVT (deep vein thrombosis) (Primary Dx) Start: 08-21-2024 End: 08-21-2024 ambulatory CLAUDINE DURÁN Facility:[facility] Start: 08-20-2024 End: 09-18-[address] [...] Start: 08-06-2024 End: 08-06-2024 Anticoagulant drug monitoring [facility] Work Phone: [facility] [place] Comment on above: Personal history of DVT (deep vein thrombosis) (Primary Dx) Start: 08-06-2024 End: 08-06-2024 ambulatory CLAUDINE DURÁN Facility:[facility] Start: 07-29-2024 End: 07-29-2024 ambulatory Jane Rick RN Work Phone: Material Man Management Start: 07-29-2024 End: 07-29-2024 Coordination of care plan Jane Rick RN Work Phone: Material Man Management Comment on above: Care Coordination (C gaston review and outreach for CHF GDMT Care Path/) Start: 07-23-2024 End: 07-23-2024 ambulatory Brissa Chester APRN.CNP Work Phone: Cardiology Comment on above: ECHO and LAB RESULTS Start: 07-23-2024 End: 07-23-2024 E-mail encounter from caregiver Brissa Chester APRN.CNP Work Phone: Cardiology Start: 07-22-2024 End: 07-22-2024 ambulatory CLAUDINE DURÁN Facility:[facility] Start: 07-22-2024 End: 07-22-2024 Patient encounter procedure Brissa Chester APRN.TREE DOCTOR Work Phone: Cardiology Comment on above: S/P TAVR (transcathe ter aortic valve replacement) (Primary Dx); Nonrheumatic aortic valve stenosis; Nonrheumatic mitral valve stenosis; Nonrheumatic tricuspid valve regurgitation; Essential hypertension; Disseminated histoplasmosis; History of recurrent deep vein thrombosis (DVT); History of GI bleed; History of COPD Start: 07-22-2024 End: 07-22-2024 ambulatory CLAUDINE DURÁN Facility:[facility] Start: 07-21-2024 End: 07-21-2024 Anticoagulant drug monitoring [facility] Work Phone: Coumadin [facility] Comment on above: Personal history of DVT (deep vein thrombosis) (Primary Dx) Start: 07-21-2024 End: 07-21-2024 ambulatory CLAUDINE DURÁN Facility:[facility] Start: 07-18-2024 End: 07-19-[address] Claudine Durán MD Work Phone: [facility] Work Phone: Start: 07-18-2024 End: 07-19-[address] Claudine Durán MD Work Phone: -Cardiac Rehab Work Phone: Start: 07-08-2024 End: 07-08-2024 ambulatory CLAUDINE DURÁN Facility:[facility] Start: 07-07-2024 End: 07-08-2024 Anticoagulant drug monitoring [facility] Work Phone: Coumadin [facility] [place] Comment on above: Personal history of DVT (deep vein thrombosis) (Primary Dx) Refill Request Start: 07-07-2024 End: 07-07-2024 [facility] Start: 07-02-2024 End: 07-02-2024 Refill Jimbo Swanson APRN.CNS Work Phone: [facility] [place] Comment on above: Refill Request Start: 06-25-2024 End: 06-25-2024 ambulatory Pili Benitez RN [employer] Comment on above: Bi-Weekly Outreach ( Recurring) for Chronic Disease Management Start: 06-21-2024 End: 06-21-2024 Refill Claudine Durán MD Work Phone: [facility] [place] Comment on above: Refill Request Start: 06-20-2024 End: 06-20-[address] Diaz Puckett MD -[facility] Work Phone: Start: 06-20-2024 End: 06-23-2024 Refill Florence Collins MD Work Phone: Pulmonary Medicine Comment on above: Refill Request Start: 06-18-2024 End: 06-18-[address] [facility] Facility:[facility] Start: 06-18-2024 End: 06-18-[address] Claudine Durán MD Work Phone: -Cardiac Rehab Work Phone: Start: 06-16-2024 End: 06-16-2024 ambulatory CLAUDINE DURÁN Facility:[facility] Start: 06-11-2024 End: 06-11-2024 ambulatory CLAUDINE DURÁN Facility:[facility] Start: [address] Claudine Durán MD Work Phone: -Cardiac Rehab Work Phone: Start: 05-28-2024 End: 05-28-[address] Claudine Durán MD Work Phone: [facility] Work Phone: Start: 05-28-2024 End: 05-28-[address] Claudine Durán MD Work Phone: -Cardiac Rehab Work Phone: Start: 05-28-2024 End: 05-28-[address] [facility] Facility:[facility] Start: 05-26-2024 End: 05-26-2024 Patient Outreach Pili Benitez RN [employer] Comment on above: Transition Of Care W eekly phone contact (Recurring) for Transitional Care Management Start: 05-21-2024 End: 05-22-2024 Telephone encounter Jimbo Swanson APRN.RPG PROGRAMMER Work Phone: [facility] Medicine [place] Comment on above: Consult Start: 05-20-2024 End: 05-20-2024 Patient encounter procedure Jimbo Jv ROSALES.RPG PROGRAMMER Work Phone: [facility] [place] Comment on above: Medicare annual well ness visit, subsequent (Primary Dx); Cough due to bronchospasm; Rheumatoid arthritis involving multiple sites with positive rheumatoid factor (HCC); Low back pain with right-sided sciatica, unspecified back pain laterality, unspecified chronicity; Chronic heart failure with preserved ejection fraction (HFpEF) ([facility]); Nonrheumatic aortic valve stenosis; S/P TAVR (transcatheter aortic valve replacement) Start: 05-20-2024 End: 05-20-2024 [facility] Start: 05-20-2024 End: 05-20-2024 Anticoagulant drug monitoring [facility] Work Phone: [facility] [place] Comment on above: Personal history of DVT (deep vein thrombosis) (Primary Dx) Start: 05-19-2024 End: 05-19-2024 Patient Outreach Pili Benitez RN [employer] Comment on above: Transition Of Care W eekly phone contact (Recurring) for Transitional Care Management, Started Bi-Weekly Outreach (Recurring) for Chronic Disease Management Start: 05-12-2024 End: 05-12-2024 Patient Outreach Pili Benitez RN [employer] Comment on above: Transition Of Care W eekly phone contact (Recurring) for Transitional Care Management Start: 05-09-2024 End: 05-12-2024 Follow-up encounter Jimbo Swanson APRN.RPG PROGRAMMER Work Phone: [facility] [place] Comment on above: Anticoagulation Start: 05-09-2024 End: 05-09-2024 ambulatory CLAUDINE D TALAMPAS Facility:[facility] Start: 05-05-2024 End: 05-05-2024 Patient Outreach Pili Benitez RN [employer] Comment on above: Transition Of Care I nitial phone contact for Transitional Care Management Nonrheumatic aortic valve stenosis (Primary Dx); S/P TAVR (transcatheter aortic valve replacement); Chronic diastolic heart failure (HCC) Start: 05-02-2024 End: 05-02-2024 Orders Only Juvencio Saeed MD Work Phone: Cardiology Comment on above: Nonrheumatic aortic valve stenosis (Primary Dx) Start: 05-02-2024 End: 05-03-2024 Evaluation and management of inpatient CLAUDINE D ISISAMPLAYNE Facility:[facility] Start: 05-01-2024 End: 05-01-2024 [facility] Start: 05-01-2024 End: 05-01-2024 Anticoagulant drug monitoring [facility] Work Phone: [facility] [place] Comment on above: Personal history of DVT (deep vein thrombosis) (Primary Dx) Start: 04-30-2024 End: 04-30-2024 Admission to same day surgery center Anesthesia Clearance Work Phone: [facility] Work Phone: Start: 04-30-2024 End: 04-30-2024 ambulatory [facility] Start: 04-30-2024 End: 04-30-2024 Patient encounter procedure Anesthesia Clearance Work Phone: Cardiothoracic Comment on above: Encounter for preope rative anesthesiology assessment for cardiac surgery (Primary Dx) Nonrheumatic aortic valve stenosis (Primary Dx) Start: 04-30-2024 End: 04-30-2024 Subsequent hospital visit by physician Robbie Chest Main J1 Work Phone: Radiology Comment on above: Nonrheumatic aortic valve stenosis [I35.0] Start: 04-30-2024 End: 04-30-2024 ambulatory CLAUDINE D ISISAMPAS Facility:[facility] Start: 04-21-2024 End: 04-21-2024 [facility] Start: 04-21-2024 End: 04-21-2024 Patient encounter procedure Geno Hart MD Work Phone: [facility] [place] Department of Infectious Disease Comment on above: Disseminated histopl asmosis (Primary Dx); Bronchiectasis without complication (HCC); COPD without exacerbation (HCC); Rheumatoid arthritis with positive rheumatoid factor, involving unspecified site (HCC); History of immunosuppressive therapy; History of penicillin allergy; Encounter for long-term (current) use of antibiotics; Counseling, unspecified Start: 04-16-2024 End: 04-16-2024 ambulatory Leandra Venegas GATE CLERK.RPG PROGRAMMER Work Phone: Cardiology Comment on above: Structural Dental Cl earance Start: 04-15-2024 End: 04-15-2024 ambulatory Leandra Venegas GATE CLERK.RPG PROGRAMMER Work Phone: Cardiology Start: 04-15-2024 End: 04-15-2024 Telephone encounter Leandra Venegas APRN.RPG PROGRAMMER Work Phone: Cardiology Comment on above: Appointment (TAVR ole heduling) Start: 04-14-2024 End: 04-14-2024 ambulatory Pili Benitez RN Material Man Management Comment on above: Initial enrollment o isabel for Chronic Disease Management Start: 04-05-2024 End: 04-05-2024 ambulatory Juvencio Saeed MD Work Phone: Cardiology Start: 04-03-2024 End: 04-03-2024 ambulatory CLAUDINE DURÁN Facility:[facility] Start: 04-03-2024 End: 04-03-2024 Anticoagulant drug monitoring [facility] Work Phone: [facility] [place] Comment on above: Personal history of DVT (deep vein thrombosis) (Primary Dx) Start: 04-02-2024 End: 04-03-2024 Telephone encounter Delfina Francis MD Work Phone: Cardiothoracic Comment on above: Referral Information (Surgical Consult with Dr. Francis) Start: 04-01-2024 End: 04-02-2024 Telephone encounter Delfina Francis MD Work Phone: Cardiothoracic Comment on above: Insurance Authorizat ion Start: 03-31-2024 End: 03-31-2024 ambulatory Yu Torres MA [facility] Comment on above: TAVR Meeting Start: 03-31-2024 End: 03-31-2024 E-mail encounter from caregiver Yu Torres MA [facility] Start: 03-31-2024 End: 03-31-2024 Patient encounter procedure Yu Brian SANDY [facility] [place] Comment on above: [facility] v[facility] Outreach ([employer] High Risk - Attempt 3) Start: 03-26-2024 End: 03-26-2024 ambulatory Yu Torres MA [facility] [place] Start: 03-26-2024 End: 03-26-2024 Patient encounter procedure Yu Torres MA [facility] Comment on above: Population Health Na vigation [...] Start: 03-24-2024 End: 03-25-2024 ambulatory CLAUDINE DURÁN Facility:[facility] Start: 03-23-2024 End: 03-23-2024 Telephone encounter Michael Beavers MD Work Phone: Cardiology Comment on above: Patient Education Start: 03-21-2024 Encounter for preprocedural cardiovascular examination CLAUDINE DURÁN [facility] Start: 03-21-2024 End: 03-21-2024 Subsequent hospital visit by physician Xr Chest Main J1 Work Phone: Radiology Comment on above: Nonrheumatic aortic valve stenosis [I35.0] Start: 03-21-2024 End: 03-21-2024 ambulatory Yu Torres MA [facility] [place] Start: 03-21-2024 End: 03-21-2024 Patient encounter procedure [...] encounter status Juvencio Saeed MD Work Phone: [facility] Start: 02-29-2024 End: 02-29-2024 Office outpatient [...] Start: 02-29-2024 End: 02-29-2024 Anticoagulant drug monitoring [facility] Work Phone: [facility] Comment on above: Personal history of DVT (deep vein thrombosis) (Primary Dx) Start: 02-29-2024 End: 02-29-2024 [facility]ulatory [facility] Start: 02-20-2024 End: 02-21-2024 Refill Geno Hart MD Work Phone: [facility] [place] Department of Infectious Disease Comment on above: Refill Request Start: 01-31-2024 End: 01-31-2024 ambulatory [facility] Start: 01-31-2024 End: 01-31-2024 Anticoagulant drug monitoring [facility] Work Phone: [facility] [place] Comment on above: Personal history of DVT (deep vein thrombosis) (Primary Dx) Start: 01-29-2024 End: 01-29-2024 ambulatory Ilda Miller RN Work Phone: Material Man Management Comment on above: Community Monitoring Outreach (2nd attempt Telephonic Outreach CDM Home Monitoring) Start: 01-21-2024 End: 01-21-2024 ambulatory Ilda Miller RN Work Phone: Material Man Management Comment on above: Community Monitoring Outreach (Telephonic Outreach CDM Home Monitoring) Start: 01-18-2024 End: 01-18-2024 ambulatory CLAUDINE D TALAMPAS Facility:[facility] Start: 01-10-2024 End: 01-10-2024 ambulatory CLAUDINE D TALAMPAS Facility:[facility] Start: 01-10-2024 End: 01-10-2024 [facility] Work [facility]: [facility] [place] Comment on above: Personal history of DVT (deep vein thrombosis) (Primary Dx) Start: 01-08-2024 End: 01-08-2024 ambulatory Monica [place] GATE CLERK.TREE DOCTOR Work Phone: Cardiology Start: 01-08-2024 End: 01-08-2024 Patient encounter procedure Monica Willet[place] GATE CLERK.TREE DOCTOR Work Phone: Cardiology Comment on above: TAVR Consult Start: 01-08-2024 End: 01-08-2024 Patient encounter status Monica Willet[place] GATE CLERK.TREE DOCTOR Work Phone: [facility] Start: 01-04-2024 End: 01-04-2024 Telephone encounter [...] Start: 01-02-2024 End: 01-02-2024 ambulatory CLAUDINE DURÁN Facility:[facility] Start: 12-27-2023 End: 12-27-2023 [facility] Facility:[facility] Start: 12-27-2023 End: 12-27-2023 Anticoagulant drug monitoring [facility] Work Phone: [facility] Comment on above: Personal history of DVT (deep vein thrombosis) (Primary Dx) Start: 12-20-2023 End: 12-20-2023 ambulatory Rosa Wallace RN Work Phone: Material Man Management Comment on above: community monitoring outreach (engagement) Start: 12-19-2023 End: 12-20-2023 Telephone encounter Claudine Durán MD Work Phone: Internal Medicine [place] Start: 12-19-2023 End: 12-19-2023 ambulatory Rosa Wallace RN Work Phone: Material Man Management Comment on above: community monitoring outreach (engagement) Start: 12-18-2023 End: 12-18-2023 ambulatory [facility] Maddy [facility] Facility:[facility] Start: 12-18-2023 End: 12-18-2023 Patient encounter procedure Geno Hart MD Work Phone: [facility] [place] Department of Infectious Disease Comment on above: Disseminated histopl asmosis (Primary Dx); Bronchiectasis without complication (HCC); COPD without exacerbation (HCC); Rheumatoid arthritis with positive rheumatoid factor, involving unspecified site (HCC); History of immunosuppressive therapy; History of penicillin allergy; Encounter for long-term (current) use of antibiotics; Counseling, unspecified; Disseminated histoplasmosis Start: 12-13-2023 End: 12-13-2023 ambulatory [facility] Start: 12-13-2023 End: 12-13-2023 Anticoagulant drug monitoring [facility] Work Phone: [facility] [place] Comment on above: Personal history of DVT (deep vein thrombosis) (Primary Dx) Start: 12-11-2023 End: 12-12-2023 Refill Twyla Cuevas APRN.TREE DOCTOR Work Phone: Internal Medicine [place] Comment on above: Refill Request Start: 12-09-2023 End: 12-11-2023 Refill Claudine Durán MD Work Phone: Internal Medicine [place] Comment on above: Refill Request Start: 11-29-2023 End: 11-29-[address] [facility] Facility:[facility] Start: 11-29-2023 End: 11-29-2023 Anticoagulant drug monitoring [facility] Work Phone: [facility] [place] Comment on above: Personal history of DVT (deep vein thrombosis) (Primary Dx) Start: 11-26-2023 End: 11-26-2023 Telephone encounter Geno Hart MD Work Phone: [facility] [place] Department of Infectious Disease Comment on above: Patient Question Start: 11-15-2023 End: 11-15-2023 Telephone encounter Claudine Durán MD Work Phone: [facility] [place] Comment on above: Orders (poc protime) Start: 11-15-2023 End: 11-15-2023 [facility] Start: 11-15-2023 End: 11-15-2023 Anticoagulant drug monitoring [facility] Work Phone: [facility] [place] Comment on above: Personal history of DVT (deep vein thrombosis) (Primary Dx) Start: 11-08-2023 End: 11-08-2023 [facility] Start: 11-08-2023 End: 11-08-2023 Anticoagulant drug monitoring [facility] Work Phone: [facility] [place] Comment on above: Personal history of DVT (deep vein thrombosis) (Primary Dx) Start: 11-03-2023 End: 11-06-2023 Refill Jimbo Swanson APRN.RPG PROGRAMMER Work Phone: Internal Medicine [place] Comment on above: Refill Request Start: 11-02-2023 End: 11-02-2023 E-mail encounter from caregiver Bibi Alegria APRN.CNP Work Phone: Cardiology Start: 11-02-2023 End: 11-02-2023 Follow-up encounter Bibi Alegria APRN.CNP Work Phone: Cardiology Comment on above: Valve Follow Up Start: 10-30-2023 End: 10-30-2023 Telephone encounter William Messina DO Work Phone: Cardiology Comment on above: Forms Start: 10-30-2023 ambulatory Mathew Esteban Facility [facility] Start: 10-25-2023 End: 10-25-2023 ambulatory CLAUDINE DURÁN Facility:[facility] Start: 10-25-2023 End: 10-25-2023 Anticoagulant drug monitoring [facility] Work Phone: Coumadin [facility] Comment on above: Personal history of DVT (deep vein thrombosis) (Primary Dx) Start: 10-20-2023 End: 10-25-2023 Refill Jimbo Swanson APRN.RPG PROGRAMMER Work Phone: [facility] [place] Comment on above: Refill Request Start: 10-19-2023 End: 10-19-2023 Anticoagulant drug monitoring [facility] Work Phone: [facility] Comment on above: Personal history of DVT (deep vein thrombosis) (Primary Dx) Start: 10-18-2023 End: 10-18-2023 Patient encounter procedure Bibi Alegria APRN.TREE DOCTOR Work Phone: Cardiology Comment on above: Aortic stenosis with bicuspid valve (Primary Dx); Pericardial effusion; Essential hypertension; Chronic heart failure with preserved ejection fraction (HFpEF) ([facility]); Mitral valve stenosis, non-rheumatic; Nonrheumatic tricuspid valve regurgitation Start: 10-17-2023 End: 10-17-2023 ambulatory Ilda Miller RN Work Phone: Material Man Management Comment on above: Community Monitoring Outreach (F/U engagement CD Home Monitoring) Start: 10-11-2023 End: 10-11-2023 Office outpatient visit 25 minutes Jimbo Sananusha ROYRPG PROGRAMMER Work Phone: [facility] Medicine [place] Comment on above: Aortic valve stenosi s, etiology of cardiac valve disease unspecified (Primary Dx); Mitral valve stenosis, unspecified etiology; Pericardial effusion; Gastrointestinal hemorrhage, unspecified gastrointestinal hemorrhage type; Rheumatoid arthritis with positive rheumatoid factor, involving unspecified site (HCC); Edema, unspecified type; Blood loss anemia Start: 09-27-2023 End: 09-27-2023 Anticoagulant drug monitoring [facility] Work Phone: [facility] [place] Comment on above: Personal history of DVT (deep vein thrombosis) (Primary Dx) Refill Request Start: 09-27-2023 Refill Twyla Cuevas APRN.TREE DOCTOR Work Phone: Internal Medicine [place] Comment on above: Med Change Request Start: 09-21-2023 End: 09-21-2023 Anticoagulant drug monitoring [facility] Work Phone: [facility] [place] Comment on above: Personal history of DVT (deep vein thrombosis) (Primary Dx) Start: 09-04-2023 Telephone encounter Twyla de APRN.TREE DOCTOR Work Phone: [facility] Medicine [place] Comment on above: Results Start: 08-31-2023 ambulatory Ilda Miller RN Work Phone: Material Man Management Comment on above: Community Monitoring Outreach (F/U engagement CD Home Monitoring) Start: 08-30-2023 End: 08-30-2023 Anticoagulant drug monitoring [facility] Work Phone: [facility] [place] Comment on above: Personal history of DVT (deep vein thrombosis) (Primary Dx) Refill Request Start: 08-30-2023 End: 08-30-2023 Subsequent hospital visit by physician [facility] (I-Stat) Work Phone: Cat Scan Comment on above: Disseminated histopl asmosis [B39.9] Start: 08-28-2023 End: 08-28-2023 Patient encounter procedure Geno Hart MD Work Phone: [facility] [place] Department of Infectious Disease Comment on above: [...] Essential hypertension; Pericardial effusion (noninflammatory); Leg edema; 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 Start: 08-24-2023 Telephone encounter William Messina DO Work Phone: Cardiology Start: 08-22-2023 End: 08-22-2023 Office outpatient visit 25 minutes Claudine Durán MD Work Phone: Internal Medicine [place] Comment on above: Anemia, unspecified type (Primary Dx); Bilateral lower extremity edema; Chronic anticoagulation; Moderate to severe aortic stenosis; Disseminated histoplasmosis; Nodule of lower lobe of left lung; Encounter for long-term current use of medication Start: 08-22-2023 End: 08-22-2023 [facility] [place] Comment on above: Personal history of DVT (deep vein thrombosis) (Primary Dx) Start: 08-09-2023 End: 08-09-2023 Anticoagulant drug monitoring [facility] Work Phone: [facility] [place] Comment on above: Personal history of DVT (deep vein thrombosis) (Primary Dx) Start: 08-08-2023 End: 08-08-2023 Patient encounter procedure Twyla Cuevas APRN.TREE DOCTOR Work Phone: [facility] [place] Comment on above: Rheumatoid arthritis involving multiple sites with positive rheumatoid factor (HCC) (Primary Dx); Edema, unspecified type; Encounter for therapeutic drug monitoring Start: 08-07-2023 Refill Claudine tavares MD Work Phone: [facility] [place] Comment on above: Refill Request Start: 07-31-2023 Refill Claudine tavares MD Work Phone: [facility] [place] Comment on above: Refill Request Start: 07-28-2023 Refill Jimbo Swanson APRN.RPG PROGRAMMER Work Phone: [facility] [place] Comment on above: Refill Request Start: 07-26-2023 End: 07-26-2023 Anticoagulant drug monitoring [facility] Work Phone: [facility] [place] Comment on above: prison current us e of anticoagulant therapy (Primary Dx) Start: 07-20-2023 Telephone encounter Claudine valderrama MD Work Phone: [facility] [place] Comment on above: Medication Problem Start: 07-17-2023 Refill Claudine tavares MD Work Phone: [facility] [place] Comment on above: Refill Request Right knee pain, uns pecified chronicity (Primary Dx) Start: 07-12-2023 Telephone encounter Jimbo sanchez APRN.RPG PROGRAMMER Work Phone: [facility] [place] Comment on above: Results Start: 07-12-2023 End: 07-12-2023 Anticoagulant drug monitoring [facility] Work Phone: [facility] [place] Comment on above: Personal history of DVT (deep vein thrombosis) (Primary Dx) Start: 07-10-2023 End: 07-10-2023 Office outpatient visit 25 minutes Jimbo Swanson APRN.RPG PROGRAMMER Work Phone: [facility] [place] Comment on above: Acute pain of right knee (Primary Dx); Chronic anticoagulation; Hip pain, acute, left; Pain and swelling of right lower leg Start: 07-05-2023 ambulatory Ilda Miller RN Work Phone: [employer] Comment on above: Community Monitoring Outreach (F/U engagement CDM Home Monitoring) Start: 07-05-2023 End: 07-05-2023 [facility] Work Phone: [facility] [place] Comment on above: Personal history of DVT (deep vein thrombosis) (Primary Dx) Start: 07-01-2023 Refill Twyla Cuevas APRN.CNP Work Phone: [facility] [place] Comment on above: Refill Request Start: 06-07-2023 Refill Claudine tavares MD Work Phone: [address] [place] [address] Comment on above: Refill Request Start: 06-05-2023 End: 06-05-2023 Office outpatient visit 40 minutes Claudine Durán MD Work Phone: Internal Medicine [place] Comment on above: Anemia, unspecified type (Primary Dx); Elevated LFTs; COPD without exacerbation (HCC); Essential hypertension; Cough due to bronchospasm; Chronic anticoagulation; Encounter for long-term current use of medication; Gastric ulcer with hemorrhage, unspecified chronicity Start: 05-31-2023 End: 05-31-[address] Claudine Durán Work Phone: [facility] Work Phone: Start: 05-31-2023 End: 05-31-2023 Dr. Claudine Durán Work Phone: [facility] Start: 05-29-2023 End: 05-29-[address] Claudine Durán Work Phone: [facility] Work Phone: Start: 05-29-2023 End: 05-29-2023 Dr. Claudine Durán Work Phone: [facility] Start: 05-28-2023 End: 05-28-[address] Claudine Durán Work Phone: [facility] Work Phone: Start: 05-28-2023 End: 05-28-2023 Dr. Claudine Durán Work Phone: [facility] Start: 05-24-2023 End: 05-24-[address] Claudine Durán Work Phone: [facility] Work Phone: Start: 05-24-2023 End: 05-24-2023 Dr. Claudine Durán Work Phone: [facility] Start: 05-21-2023 End: 05-21-[address] Claudine Durán Work Phone: [facility] Work Phone: Start: 05-21-2023 End: 05-21-2023 Dr. Claudine Durán Work Phone: [facility] Start: 05-17-2023 End: 05-17-[address] Claudine Durán Work Phone: [facility] Work Phone: Start: 05-17-2023 End: 05-17-2023 Dr. Claudine Durán Work Phone: [facility] Start: 05-15-2023 End: 05-15-[address] Claudine Durán Work Phone: [facility] Work Phone: Start: 05-15-2023 End: 05-15-2023 Dr. Claudine Durán Work Phone: [facility] Start: 05-14-2023 End: 05-14-[address] Claudine Durán Work Phone: [facility] Work Phone: Start: 05-14-[address] Claudine hurt Work Phone: [facility] Start: 05-14-2023 End: 05-14-2023 Dr. Claudine Durán Work Phone: [facility] Start: 05-10-2023 End: 05-10-[address] Claudine Durán Work Phone: [facility] Work Phone: Start: 05-10-[address] Claudine hurt Work Phone: [facility] Start: 05-10-2023 End: 05-10-2023 Dr. Claudine Durán Work Phone: [facility] Start: 05-07-2023 End: 05-07-[address] Claudine Durán Work Phone: [facility] Work Phone: Start: 05-07-2023 End: 05-07-[address] Claudine Durán Work Phone: [facility] Start: 05-07-2023 End: 05-07-2023 Dr. Claudine Durán Work Phone: [facility] Start: 05-03-2023 End: 05-03-[address] Claudine Durán Work Phone: [facility] Work Phone: Start: 05-03-[address] Claudine hurt Work Phone: [facility] Start: 05-03-2023 End: 05-03-2023 Dr. Claudine Durán Work Phone: [facility] Start: 05-01-2023 End: 05-01-2023 Dr. Claudine Durán Work Phone: [facility] Work Phone: Start: 05-01-2023 End: 05-01-[address] Claudine Durán Work Phone: [facility] Work Phone: Start: 05-01-2023 End: 05-01-[address] Claudine Durán Work Phone: [facility] Start: 05-01-[address] Claudine hurt Work Phone: [facility] Start: 05-01-2023 End: 05-01-2023 Dr. Claudine Durán Work Phone: [facility] Start: 04-30-2023 Telephone encounter Claudine valderrama MD Work Phone: [facility] [place] Comment on above: Clinical Update Start: 04-30-2023 End: 04-30-2023 Dr. Claudine Durán Work Phone: [facility] Work Phone: Start: 04-10-2023 Non-patient / Non-visit Dr. Sabrina Durán Work Phone: [facility] Start: 04-10-2023 Dr. Claudine avila Work Phone: [facility] Start: 04-10-2023 End: 04-10-[address] Claudine Durán Work Phone: [facility] Work Phone: Start: 04-10-2023 End: 04-10-[address] [facility] Work Phone: Start: 04-10-2023 End: 04-10-2023 Dr. Claudine Durán [facility] Work Phone: Start: 04-09-2023 Non-patient / Non-visit Dr. Sabrina Durán Work Phone: [facility] Work Phone: Start: 04-09-2023 Dr. Claudine avila Work Phone: [facility] Work Phone: Start: 04-05-2023 End: 04-30-2023 Evaluation and management of inpatient Dr. Claudine Durán [facility] Start: 04-05-2023 End: 04-30-2023 Dr. Claudine Durán Work Phone: [facility] Start: 04-05-2023 Non-patient / Non-visit Dr. Sabrina Durán Work Phone: [facility] Work Phone: Start: 04-05-2023 Dr. Claudine avila Work Phone: [facility] Work Phone: Start: 04-04-2023 Non-patient / Non-visit Dr. Sabrina Durán Work Phone: [facility] Work Phone: Start: 04-04-2023 Dr. Claudine avila Work Phone: [facility] Work Phone: Start: 04-04-2023 Non-patient / Non-visit Dr. Sabrina Durán Work Phone: [facility] Start: 04-04-2023 Dr. Claudine avila Work Phone: [facility] Start: 04-03-2023 Non-patient / Non-visit Dr. Sabrina Durán Work Phone: [facility] Start: 04-03-2023 Dr. Claudine avila Work Phone: [facility] Start: 04-02-2023 Non-patient / Non-visit Dr. Sabrina Durán Work Phone: [facility] Work Phone: Start: 04-02-2023 Dr. Claudine avila Work Phone: [facility] Work Phone: Start: 04-02-2023 Non-patient / Non-visit Dr. Sabrina Durán Work Phone: [facility] Start: 04-02-2023 Dr. Claudine avila Work Phone: [facility] Start: 04-02-2023 Non-patient / Non-visit Dr. Sabrina Durán Work Phone: [facility] Start: 04-02-2023 Dr. Claudine avila Work Phone: [facility] Start: 04-02-2023 Non-patient / Non-visit Dr. Sabrina Durán Work Phone: [facility] Start: 04-02-2023 Dr. Claudine avila Work Phone: [facility] Start: 04-01-2023 Non-patient / Non-visit Dr. Sabrina Durán Work Phone: [facility] Start: 04-01-2023 Dr. Claudine avila Work Phone: [facility] Start: 04-01-2023 Non-patient / Non-visit Dr. Sabrina Durán Work Phone: [facility] Work Phone: Start: 04-01-2023 Dr. Claudine avila Work Phone: [facility] Work Phone: Start: 03-31-2023 End: 04-05-2023 Evaluation and management of inpatient Dr. Claudine Durán Work Phone: [facility] Work Phone: Start: 03-31-2023 End: 04-05-2023 Dr. Claudine Durán Work Phone: [facility] Work Phone: Start: 03-28-2023 End: 03-28-2023 Emergency department patient visit Dr. Claudine Durán Work Phone: [facility] Work Phone: Start: 03-28-2023 End: 03-28-2023 Dr. Claudine Durán Work Phone: [facility] Work Phone: Start: 03-27-2023 Non-patient / Non-visit Dr. Sabrina Durán Work Phone: [facility] Work Phone: Start: 03-27-2023 Dr. Claudine avila Work Phone: [facility] Work Phone: Start: 03-27-2023 E-mail encounter fro m caregiver William Messina DO Work Phone: [facility] Start: 03-27-2023 Patient encounter procedure William Messina DO Work Phone: Cardiology Comment on above: Appointment Start: 03-26-2023 End: 03-27-2023 Evaluation and management of inpatient [facility] Work Phone: Start: 03-26-2023 observation encounter W [facility] Work Phone: Start: 03-26-2023 End: 03-27-2023 Dr. Claudine Durán Work Phone: [facility] Work Phone: Start: 03-23-2023 Telephone encounter Rachelle Leonard GATE CLERK.TREE DOCTOR Work Phone: [place] [facility] Comment on above: Appointment Start: 03-19-2023 End: 03-25-2023 Evaluation and management of inpatient CLAUDINE DURÁN Facility:[facility] Start: 03-19-2023 End: 03-19-2023 Emergency department patient visit [facility] Work Phone: Start: 03-19-2023 End: 03-19-2023 Dr. Claudine Durán Work Phone: [facility] Work Phone: Start: 03-15-2023 ambulatory Claudine tavares MD Work Phone: [facility] [place] Comment on above: histoplasmosis Start: 02-27-2023 Telephone encounter Claudine valderrama MD Work Phone: [facility] [place] Comment on above: Results (worsening l iver enzymes) Start: 02-07-2023 End: 02-07-2023 Subsequent hospital visit by physician Xr [facility] Work Phone: Radiology Comment on above: Acute cough [R05.1] Start: 02-07-2023 End: 02-07-2023 Patient encounter procedure Adri Zaragoza GATE CLERK.TREE DOCTOR Work Phone: [facility] Comment on above: Acute cough (Primary Dx) Start: 02-02-2023 End: 02-02-2023 Anticoagulant drug monitoring Anticoag [facility] Work Phone: [facility] [place] Comment on above: Personal history of DVT (deep vein thrombosis) (Primary Dx) Start: 01-24-2023 Refill Teresa barboza MD Work Phone: Pulmonary Medicine Comment on above: Refill Request Start: 01-17-2023 End: 01-17-2023 [facility] [place] Comment on above: Embolism and thrombo sis (HCC) (Primary Dx) Start: 01-10-2023 End: 01-10-2023 [facility] Work [facility] [place] Comment on above: Personal history of DVT (deep vein thrombosis) (Primary Dx) Start: 01-04-2023 End: 01-04-2023 Office outpatient visit 15 minutes Jimbo Swanson APRN.RPG PROGRAMMER Work Phone: [facility] [place] Comment on above: Encounter for immuni zation (Primary Dx) Start: 01-04-2023 End: 01-04-2023 [facility] Work [facility]: [facility] Comment on above: Embolism and thrombo sis (HCC) (Primary Dx) Start: 12-20-2022 Refill Claudine tavares MD Work Phone: [facility] [place] Comment on above: Refill Request Start: 12-14-2022 End: 12-14-2022 [facility] Work [facility]: [facility] Comment on above: Embolism and thrombo sis (HCC) (Primary Dx) Start: 12-07-2022 End: 12-07-2022 [facility] Work [facility]: [facility] [place] Comment on above: Embolism and thrombo sis (HCC) (Primary Dx) Start: 11-20-2022 Documentation procedure Mammog adrian Coordinator [facility] Start: 11-20-2022 Letter encounter Mammography Coordinator [facility] Department Start: 11-17-2022 End: 11-17-2022 Subsequent hospital visit by physician Screen Mammo [facility] Mammogram Comment on above: Encounter for screen ing mammogram for breast cancer [Z12.31] Start: 11-09-2022 Telephone encounter Claudine valderrama MD Work Phone: [facility] [place] Comment on above: Orders (protime) Start: 11-09-2022 End: 11-09-2022 Anticoagulant drug monitoring [facility] Work Phone: [facility] [place] Comment on above: Embolism and thrombo sis [...] Start: 10-31-2022 ambulatory Ashly Shay RN NURSE HOPPER FILLER Comment on above: Medication Request ( Warfarin) Refill Request Start: 10-27-2022 End: 10-27-2022 Office outpatient visit 25 minutes Jimbo Swanson APRN.RPG PROGRAMMER Work Phone: [facility] [place] Comment on [...] Start: 10-26-2022 End: 10-26-2022 Anticoagulant drug monitoring [facility] Work Phone: [facility] [place] Comment on above: Personal history of DVT (deep vein thrombosis) (Primary Dx) Start: 10-12-2022 End: 10-12-2022 Anticoagulant drug monitoring [facility] Work Phone: [facility] [place] 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 (Primary Dx) Start: 10-06-2022 Refill Jimbo Swanson APRN.RPG PROGRAMMER Work Phone: [facility] [place] Comment on above: Refill Request Start: 09-25-2022 Telephone encounter Rachelle Schulte APRN.TREE DOCTOR Work Phone: Cardiology Comment on above: Results Start: 09-14-2022 Telephone encounter Claudine valderrama MD Work Phone: [facility] [place] Comment on above: Anticoagulation Start: 09-07-2022 End: 09-07-2022 Anticoagulant drug monitoring Anticoag [facility] Work Phone: [facility] [place] Comment on above: Personal history of DVT (deep vein thrombosis) (Primary Dx) Start: 08-29-2022 End: 08-29-2022 Office outpatient visit 15 minutes Rachelle Schulte APRN.TREE DOCTOR Work Phone: Cardiology Comment on above: Aortic [...] 07-20-2022 Subsequent hospital visit by physician [facility] (I-Stat) Work Phone: Cat Scan Comment on above: Lung nodules [R91.8] Start: 06-29-2022 End: 06-29-2022 Anticoagulant drug monitoring [facility] Work Phone: [facility] [place] Comment on above: Personal history of DVT (deep vein thrombosis) (Primary Dx) Start: 05-31-2022 ambulatory [facility] Provider [employer] Comment on above: Home Monitoring Ques tionnaire Reminder + Happy Belated Birthday! Start: 05-31-2022 E-mail encounter fro m caregiver [facility] [employer] Start: 05-23-2022 Telephone encounter Claudine valderrama MD Work Phone: [facility] [place] Comment on above: Clearance for surger y Start: 05-04-2022 End: 05-04-2022 Anticoagulant drug monitoring [facility] Work Phone: [facility] [place] Comment on above: Personal history of DVT (deep vein thrombosis) (Primary Dx) Start: 04-21-2022 ambulatory [facility] Provider [employer] Comment on above: Home Monitoring Prog jelani Reminder Start: 04-21-2022 E-mail encounter fro m caregiver [facility] [employer] Start: 04-06-2022 End: 04-06-2022 Anticoagulant drug monitoring [facility] Work Phone: [facility] [place] Comment on above: Personal history of DVT (deep vein thrombosis) (Primary Dx) Start: 03-30-2022 End: 03-30-2022 Anticoagulant drug monitoring [facility] Work Phone: [facility] [place] Comment on above: Personal history of DVT (deep vein thrombosis) (Primary Dx) Start: 03-13-2022 End: 03-13-2022 Office outpatient visit 25 minutes Claudine Durán MD Work Phone: [facility] [place] Comment on above: Essential hypertensi on (Primary Dx); Chronic anticoagulation; Aortic stenosis with bicuspid valve; Rheumatoid arthritis involving multiple sites with positive rheumatoid factor (HCC); COPD without exacerbation (HCC); Bronchiectasis without complication (HCC); Acquired hammertoe of left foot; Early dry stage nonexudative age-related macular degeneration of both eyes Start: 02-24-2022 ambulatory [facility] [employer] Comment on above: [employer] Home Monitor ing Program Reminder Start: 02-24-2022 E-mail encounter fro m caregiver [facility] Provider [facility] Start: 02-17-2022 ambulatory [facility] Provider [employer] Comment on above: [employer] Home Monitor ing Program Reminder Start: 02-17-2022 E-mail encounter fro m caregiver [facility] Provider [facility] Start: 02-02-2022 End: 02-02-2022 [facility] [place] Comment on above: Personal history of DVT (deep vein thrombosis) (Primary Dx) Start: 01-17-2022 ambulatory [facility] Provider [employer] Comment on above: [employer] Home Monitor ing Program Reminder Refill Request Start: 01-17-2022 E-mail encounter fro m caregiver [facility] Provider [facility] Start: 01-10-2022 Refill Jimbo Swanson APRN.RPG PROGRAMMER Work Phone: [facility] [place] Comment on above: Refill Request Start: 01-05-2022 End: 01-05-2022 Anticoagulant drug monitoring [facility] Work Phone: [facility] [place] Comment on above: Personal history of DVT (deep vein thrombosis) (Primary Dx) Start: 12-31-2021 End: 12-31-2021 Subsequent hospital visit by physician [facility] [place] Work Phone: Radiology Comment on above: Hip pain, acute, lef t [M25.552] Start: 12-22-2021 End: 12-22-2021 Anticoagulant drug monitoring [facility] Work Phone: [facility] [place] Comment on above: Personal history of DVT (deep vein thrombosis) (Primary Dx) Start: 11-29-2021 ambulatory Jimbo Swanson GATE CLERK.RPG PROGRAMMER Work Phone: [facility] [place] Comment on above: Blood pressure Start: 11-29-2021 [...] End: 11-10-2021 Patient encounter procedure Jimbo Swanson RPG PROGRAMMER Work Phone: [facility] [place] Comment on above: Essential hypertensi on (Primary [...] encounter Claudine valderrama MD Work Phone: [facility] [place] Comment on above: Orders (protime) Start: 10-27-2021 End: 10-27-2021 [facility] Work Phone: [facility] [place] Comment on above: Personal history of DVT (deep vein thrombosis) (Primary Dx) Start: 10-18-2021 End: 10-18-2021 Patient encounter procedure Chacho Aspen Work Phone: Podiatry Comment on above: Ulcer of toe of left foot, limited to breakdown of skin (HCC) (Primary Dx); Hammer toe of left foot; Onychodystrophy Refill Request Start: 10-18-2021 End: 10-18-2021 Subsequent hospital visit by physician Xr [facility] [employer] Work Phone: Radiology Comment on above: Ulcer of toe of left foot, limited to breakdown of skin (HCC) [L97.521] Start: 10-12-2021 End: 10-12-2021 Subsequent hospital visit by physician Us [facility] [employer] Work Phone: Radiology Comment on above: Abnormal mammogram [ R92.8] Start: 09-29-2021 End: 09-29-2021 Anticoagulant drug monitoring [facility] Work Phone: [facility] [place] Comment on above: Personal history of DVT (deep vein thrombosis) (Primary Dx) Start: 09-20-2021 End: 09-20-2021 Patient encounter procedure Jimbo Swanson APRN.RPG PROGRAMMER Work Phone: [facility] [place] Comment on above: Toe infection (Prima ry Dx); Sinobronchitis Start: 09-05-2021 Documentation procedure Mammog adrian Coordinator [facility] Start: 09-05-2021 Letter encounter Mammography Coordinator [facility] Department Start: 09-05-2021 End: 09-05-2021 Subsequent hospital visit by physician Screen Mammo [facility] Mammogram Comment on above: Encounter for screen ing mammogram for breast cancer [Z12.31] Start: 08-23-2021 End: 08-23-2021 Anticoagulant drug monitoring [facility] Work Phone: [facility] [place] Comment on above: Personal history [...] Start: 07-25-2021 End: 07-25-2021 Anticoagulant drug monitoring [facility]: [facility] [place] Comment on above: Personal history of DVT (deep vein thrombosis) (Primary Dx) Start: 07-11-2021 End: 07-11-2021 Office outpatient visit 25 minutes Claudine Durán MD Work Phone: [facility] [place] Comment on above: Gastroesophageal ref lux disease without esophagitis (Primary Dx); Other viral warts; Elevated LDL cholesterol level; Essential hypertension; Need for COVID-19 vaccine; COPD without exacerbation (HCC); Bronchiectasis without complication (HCC) Start: 07-07-2021 End: 07-07-2021 Patient encounter procedure [facility], Specimen Start: 06-29-2021 ambulatory Gold Coy RN [employer] Comment on above: Community Monitoring Outreach (COPD CDM Outreach) Start: 06-09-2021 End: 06-09-2021 Anticoagulant drug monitoring [facility] Work Phone: [facility] [place] Comment on above: Embolism and thrombo sis (HCC) Start: 06-04-2021 Refill Claudine tavares MD Work Phone: [facility] [place] Comment on above: Refill Request Start: 2021 End: 2021 Patient encounter procedure Mirian Andujar MD Work Phone: Pulmonary Medicine Comment on above: Moderate COPD (chron ic obstructive pulmonary disease) (HCC) (Primary Dx); Bronchiectasis without complication (HCC); Centrilobular emphysema (HCC) Start: 05-26-2021 End: 05-26-2021 Anticoagulant drug monitoring [facility] Work Phone: [facility] [place] Comment on above: Embolism and thrombo sis (HCC) Start: 05-20-2021 ambulatory Nara (Pss) [facility] [place] Comment on above: Population Health Na vigation Outreach ([employer] Care Gaps) Start: 03-14-2021 End: 03-14-2021 Patient encounter procedure Claudine Durán MD Work Phone: [facility] [place] Comment on above: Essential hypertensi on (Primary Dx); History of COVID-19; Cough; Bronchiectasis without complication (HCC); Gastroesophageal reflux disease without esophagitis; Aortic stenosis with bicuspid valve; Rheumatoid arthritis involving multiple sites with positive rheumatoid factor (HCC) Start: 02-28-2018 Patient encounter procedure Will Hurley [facility] Start: 10-02-2014 End: 10-03-2014 Ambulatory Mykel FRc Norrisjesse Facility:[facility] Procedures Date Procedure Procedure Detail Performing [...] Radiologic exam chest 2 views Leandra mckeon GATE CLERK.RPG PROGRAMMER Work Phone: Start: 03-25-2024 Rp loclzj mary spect w/ct 1 area 1 day imaging Monica Aguila GATE CLERK.TREE DOCTOR Work Phone: Start: 03-25-2024 Spmtry w/vc expiratory milton w/wo mxml vol vntj Monica Newman-Ponchohochristofer GATE CLERK.TREE DOCTOR Work Phone: Start: 03-21-2024 Radiologic exam chest 2 views Monica Newman-Marshall GATE CLERK.TREE DOCTOR Work Phone: Start: 03-21-2024 Ct angiography chest w/contrast/noncontrast Monica Newman-Marshall GATE CLERK.TREE DOCTOR Work Phone: Start: 03-21-2024 Ct angio abd&plvis cntrst mtrl w/wo cntrst img Monicadenise Newman-Ponchohochristofer GATE CLERK.TREE DOCTOR Work Phone: Start: 03-21-2024 Creatinine [Mass/volume] in [...] A/B & RSV NAAT, ROUTINE Adri Zaragoza GATE CLERK.TREE DOCTOR Work Phone: Start: 02-07-2023 Radiologic exam chest 2 views Adri de la rosa GATE CLERK.TREE DOCTOR Work Phone: Start: 01-04-2023 PFIZER-BIONTECH COVID-19 VACCINE ( SEASON) AGE 12+ YR Jimbo Swanson GATE CLERK.RPG PROGRAMMER Work Phone: Start: 01-04-2023 Prothrombin time Jimbo Swanson GATE CLERK.RPG PROGRAMMER Work Phone: Start: 11-17-2022 Screening digital breast tomosynthesis bi Jimbo Swanson GATE CLERK.RPG PROGRAMMER Work Phone: Start: 10-27-2022 INFLUENZA VACCINE, PRSV FREE, AGE 65+ YR, HIGH DOSE, QUADRIVALENT (FLUZONE HIGH-DOSE) Jimbo Swanson GATE CLERK.RPG PROGRAMMER Work Phone: Start: 08-29-2022 Ecg routine ecg w/least 12 lds i&r only [facility] Provider Start: 07-20-2022 Ct thorax w/o contrast material Meche Collins MD Work Phone: Start: 12-31-2021 Radex hip unilateral with pelvis 2-3 views Ernie Belcher GATE CLERK.TREE DOCTOR Work Phone: Start: 11-10-2021 INFLUENZA SEASONAL QUADRIVALENT HIGH DOSE AGE 65+ Jimbo Swanson GATE CLERK.RPG PROGRAMMER Work Phone: Start: 11-10-2021 P[employer]ER[employer] COVID-19 BIVALENT BOOSTER VACCINE, AGE 12+ YR Jimbo Swanson GATE CLERK.RPG PROGRAMMER Work Phone: Start: 11-10-2021 Adult depression screening assessment Jimbo Swanson GATE CLERK.RPG PROGRAMMER Work Phone: Start: 10-18-2021 Radex foot complete minimum 3 views Shilo hew Testrake Work Phone: Start: 10-12-2021 Diagnostic mammography computer-aided detcj uni Brenda Shankar GATE CLERK.TREE DOCTOR Work Phone: Start: 09-05-2021 End: 09-05-2021 Screening mammography bi 2-view breast inc cad Brenda Shankar GATE CLERK.TREE DOCTOR Work Phone: Start: 07-11-2021 Loopport-BION[employer] COVID-19 VACCINE, AGE 12+ YR (ARIAS TOP) Claudine Durán MD Work Phone: Start: 07-07-2021 Lipid 1996 panel - Serum or Plasma Ashly Shay RN Start: 07-13-2020 Adult depression screening assessment Nara Talavera Start: 06-01-2020 Mammography Nara Dopart Start: 03-24-2019 Colonoscopy Nara Dopa Plan of Treatment Date Care Activity Detail Author Start: 11-05-2029 Urine microalbumin profile [facility] Start: 03-24-2029 Colonoscopy COLONOSCOPY [facility] Start: 03-24-2029 COLORECTAL CANCER SCREENING COLORECTAL CANCER SCREENING [facility] Start: 03-24-2029 Screening for malignant neoplasm of colon [facility] Start: 07-23-2027 Diabetes Screening Diabetes Screening [facility] Start: 05-04-2027 Diabetes Screening Diabetes Screening [facility] Start: 05-01-2027 Diabetes Screening Diabetes Screening [facility] Start: 03-24-2027 Diabetes Screening Diabetes Screening [facility] Start: 03-21-2027 Diabetes Screening Diabetes Screening [facility] Start: 10-10-2026 Diabetes Screening Diabetes Screening [facility] Start: 08-29-2026 Diabetes Screening Diabetes Screening [facility] Start: 08-21-2026 Diabetes Screening Diabetes Screening [facility] Start: 07-07-2026 Lipid 1996 panel - Serum or Plasma Lipid Screening [facility] Start: 07-07-2026 Lipid panel Lipid Screening [facility] Start: 07-07-2026 LIPID SCREEN LIPID SCREEN [facility] Start: 06-04-2026 Diabetes Screening Diabetes Screening [facility] Start: 03-25-2026 Diabetes Screening Diabetes Screening [facility] Start: 03-22-2026 Diabetes Screening Diabetes Screening [facility] Start: 05-26-2025 End: 05-26-2025 Patient encounter procedure 05/26/2025 9:00 AM EDT Office Visit [facility] [place] [address] [place] [address] Jimbo Swanson, GATE CLERK.RPG PROGRAMMER [address] [place] [address] Medicare Wellness [facility] [place] Comment on above: Medicare Wellness Start: 05-20-2025 Annual PCP Team Chronic Disease Visit Annual PCP Team Chronic Disease Visit [facility] Start: 05-20-2025 BP Controlled (<130/80) BP Controlled (<130/80) [facility] Start: 05-20-2025 zzBP Controlled (<130/80) (Retired) zzBP Controlled (<130/80) (Retired) [facility] Start: 04-30-2025 BP Controlled (<130/80) BP Controlled (<130/80) [facility] Start: 02-28-2025 Annual PCP Team Chronic Disease Visit Annual PCP Team Chronic Disease Visit [facility] Start: 02-28-2025 Anxiety Screening Anxiety Screening [facility] Start: 02-28-2025 Covid-19 Vaccine () Covid-19 Vaccine () [facility] Comment on above: Postponed from 01/17/2024 (Declined at t his time) Postponed from 05/22 (Declined at this time) Start: 02-28-2025 Covid-19 Vaccine (9 - Pfizer risk ) Covid-19 Vaccine (9 - Pfizer risk ) [facility] Comment on above: Postponed from 05/22/2024 (Declined at t his time) Start: 02-28-2025 Depression Screening Depression Screening [facility] Start: 01-01-2025 BP Controlled (<130/80) BP Controlled (<130/80) [facility] Start: 10-27-2024 End: 10-27-2024 Patient encounter procedure 10/27/2024 10:00 AM EDT Office Visit [facility] Department of Infectious Disease [address] [place] [address] Geno Hart MD [address] [place] [address] Return in about 6 months (around 10/22/2024). [facility] Comment on above: Return in about 6 months (around ). Start: 10-20-2024 Influenza vaccination Influenza Vaccine (#1) [facility] Start: 10-17-2024 BP Controlled (<130/80) BP Controlled (<130/80) [facility] Start: 10-10-2024 BP Controlled (<130/80) BP Controlled (<130/80) [facility] Start: 10-02-2024 [facility] Start: 09-03-2024 End: 09-03-2024 Anticoagulant drug monitoring 09/03/2024 10:00 AM EDT Antico[facility] Visit [facility] [address] [place] [address] Wstr, Anticoag [facility] [address] [place] [address] inr [facility] Comment on above: inr Start: 08-29-2024 Prothrombin time [facility] Start: 08-28-2024 Prothrombin time [facility] Start: 08-27-2024 BP Controlled (<130/80) BP Controlled (<130/80) [facility] Start: 08-27-2024 Patient discharge [facility] Start: 08-26-2024 BP Controlled (<130/80) BP Controlled (<130/80) [facility] Start: 08-26-2024 Care planning and problem solving actions [facility] Start: 08-26-2024 Prothrombin time [facility] Start: 08-25-2024 Care planning and problem solving actions [facility] Start: 08-25-2024 Prothrombin time [facility] Start: 08-25-2024 [facility] Start: 08-24-2024 Prothrombin time [facility] Start: 08-23-2024 Application short arm splint forearm-hand static APPLY FOREARM SPLINT [facility] Start: 08-23-2024 Following clinical pathway protocol [facility] Start: 08-23-2024 Ambulation without limitation [facility] Start: 08-23-2024 Assessment of risk of venous thromboembolism [facility] Start: 08-23-2024 Consultation [facility] Start: 08-23-2024 Incentive spirometry [facility] Start: 08-23-2024 Insertion of catheter into peripheral vein [facility] Start: 08-23-2024 Measuring intake and output [facility] Start: 08-23-2024 Providing care according to standard [facility] Start: 08-23-2024 Referral to occupational therapist [facility] Start: 08-23-2024 Referral to service [facility] Start: 08-23-2024 [facility] Start: 08-23-2024 Verification routine [facility] Start: 08-23-2024 Admission procedure [facility] Start: 08-23-2024 Inhalation therapy procedure [facility] Start: 08-23-2024 [facility] Start: 08-21-2024 Annual PCP Team Chronic Disease Visit Annual PCP Team Chronic Disease Visit [facility] Start: 08-21-2024 BP Controlled (<130/80) BP Controlled (<130/80) [facility] Start: 08-21-2024 End: 08-21-2024 Anticoagulant drug monitoring 08/21/2024 10:30 AM EDT Anticoagulation Visit Coumadin [facility] [address] [place] [address] Wstr, [facility] [address] [place] [address] inr Coumadin [facility] Comment on above: inr Start: 08-07-2024 Annual PCP Team Chronic Disease Visit Annual PCP Team Chronic Disease Visit [facility] Start: 08-06-2024 End: 08-06-2024 Anticoagulant drug monitoring 08/06/2024 10:30 AM EDT [facility] [address] [place] [address] Wstr, [facility] [address] [place] [address] inr Coumadin [facility] Comment on above: inr Start: 07-22-2024 End: 07-22-2024 Patient encounter procedure Cardiology Comment on above: S/P TAVR Start: 07-22-2024 End: 07-22-2024 ambulatory [facility] J1-4 Dra mikal [place] Comment on above: LAB S/P TAVR Start: 07-21-2024 End: 07-21-2024 Anticoagulant drug monitoring 07/21/2024 10:30 AM EDT Antico[facility] Visit [facility] [address] [facility] [place] [address] Wstr, Anticoag [facility] [address] [facility] [place] [address] inr [facility] Comment on above: inr Start: 07-09-2024 BP Controlled (<130/80) BP Controlled (<130/80) [facility] Start: 07-07-2024 End: 07-07-2024 Anticoagulant drug monitoring 07/07/2024 10:30 AM EDT Anticoagulation Visit [facility] [address] [facility] [place] [address] Wstr, Anticoag [facility] [address] [facility] [place] [address] inr [facility] Comment on above: inr Start: 06-16-2024 End: 09-15-2024 HISTOPLASMA AG URINE HISTOPLASMA AG URINE Lab Routine Disseminated histoplasmosis Expected: 06/16/2024, Expires: 09/15/2024 [facility] Work Phone: Comment on above: Expected: 06/16/2024, Expires: Start: 06-04-2024 Annual PCP Team Chronic Disease Visit Annual PCP Team Chronic Disease Visit [facility] Start: 06-04-2024 BP Controlled (<130/80) BP Controlled (<130/80) [facility] Start: 06-03-2024 End: 06-03-2024 Anticoagulant drug monitoring 06/03/2024 2:30 PM EDT Anticoagulation Visit [facility] [address] [facility] [place] [address] Wstr, Anticoag [facility] [address] [facility] [address] inr [facility] Comment on above: inr Start: 05-20-2024 End: 05-20-2024 Patient encounter procedure 05/20/2024 1:00 PM EDT Office Visit [facility] [place] [address] [place] [address] Jimbo Swanson APRN.RPG PROGRAMMER [address] [facility] [address] Medicare Wellness [facility] [place] Comment on above: Medicare Wellness Start: 05-20-2024 End: 05-20-2024 Anticoagulant drug monitoring 05/20/2024 12:30 PM EDT Anticoagulation Visit [facility] [address] [facility] [place] [address] Wstr, Anticoag [facility] [address] [facility] [address] inr [facility] Comment on above: inr Start: 05-05-2024 End: 05-05-2024 Patient encounter procedure Cardiology Comment on above: S/P TAVR Start: 05-02-2024 End: 08-01-2024 CBC W Auto Differential panel - Blood COMPLETE BLOOD COUNT AND DIFFERENTIAL Lab STAT Nonrheumatic aortic valve stenosis Aortic valve disorder Expected: 05/02/2024 (Approximate), Expires: 08/01/2024 [facility] Comment on above: Expected: 05/02/2024 (Approximate), Expi res: 08/01/2024 Start: 05-02-2024 End: 08-01-2024 Comprehensive metabolic 2000 panel - Serum or Plasma COMPREHENSIVE METABOLIC PANEL Lab STAT Nonrheumatic aortic valve stenosis Aortic valve disorder Expected: 05/02/2024 (Approximate), Expires: 08/01/2024 [facility] Comment on above: Expected: 05/02/2024 (Approximate), Expi res: 08/01/2024 Start: 05-02-2024 End: 08-01-2024 CONFIRM BLOOD TYPE CONFIRM BLOOD TYPE Blood Bank STAT Nonrheumatic aortic valve stenosis Aortic valve disorder Expected: 05/02/2024 (Approximate), Expires: 08/01/2024 [facility] Comment on above: Expected: 05/02/2024 (Approximate), Expi res: 08/01/2024 Start: 05-02-2024 End: 08-01-2024 Natriuretic peptide.B prohormone N-Terminal [Mass/volume] in Serum or Plasma NT PRO BNP Lab STAT Nonrheumatic aortic valve stenosis Aortic valve disorder Expected: 05/02/2024 (Approximate), Expires: 08/01/2024 [facility] Comment on above: Expected: 05/02/2024 (Approximate), Expi res: 08/01/2024 Start: 05-02-2024 End: 08-01-2024 PT panel - Platelet poor plasma by Coagulation assay PROTHROMBIN TIME Lab STAT Nonrheumatic aortic valve stenosis Aortic valve disorder Expected: 05/02/2024 (Approximate), Expires: 08/01/2024 [facility] Comment on above: Expected: 05/02/2024 (Approximate), Expi res: 08/01/2024 Start: 05-02-2024 End: 08-01-2024 TYPE AND SCREEN,30 DAY TYPE AND SCREEN,30 DAY Blood Bank STAT Nonrheumatic aortic valve stenosis Aortic valve disorder Expected: 05/02/2024 (Approximate), Expires: 08/01/2024 [facility] Comment on above: Expected: 05/02/2024 (Approximate), Expi res: 08/01/2024 Start: 05-02-2024 End: 05-02-2024 Replace aortic valve perq femoral artry approach TRANSCATHETER AORTIC VALVE REPLACEMENT (TAVR/ROLA) W/ PROSTHETIC VALVE PERCUTANEOUS FEMORAL ARTERY APPROACH Aortic valve stenosis, etiology of cardiac valve disease unspecified 05/02/2024 10:32 AM EDT [facility] CT & [facility] Start: 05-02-2024 End: 05-02-2024 Patient encounter procedure 05/02/2024 8:45 AM EDT Office Visit Cardiology [address] [place] [address] COMMERCIAL TF- TAVR ( CAR[facility]) Cardiology Comment on above: COMMERCIAL TF- TAVR ( CARLYN) Start: 05-02-2024 End: 05-02-2024 ambulatory 05/02/2024 8:30 AM EDT Procedure Cardiology [address] [place] [address] COMMERCIAL TF- TAVR ( CARLYN) Cardiology Comment on above: COMMERCIAL TF- TAVR ( CARLYN) Start: 05-02-2024 End: 05-02-2024 Anesthesia consultation 05/02/2024 8:00 AM EDT Anesthesia Event Admitting [address] [place] [address] Nara Mcnair APRN.FINISHED GOODS INSPECTOR [address] [facility], [address] [place] [address] Admitting Start: 05-02-2024 End: 05-02-2024 Admission to same day surgery center Admitting Comment on above: TRANSCATHETER AORTIC VALVE REPLACEMENT ( TAVR/ROLA) W/ PROSTHETIC VALVE PERCUTANEOUS FEMORAL ARTERY APPROACH Start: 05-02-2024 End: 05-02-2024 Replace aortic valve perq femoral artry approach [facility] CT & VAS Start: 05-02-2024 Subsequent hospital visit by physician Admitting Comment on above: COMMERCIAL TF- TAVR ( CARLYN), Procedure o n: Thursday May 02, 2024 at 8:30 am Start: 05-01-2024 End: 05-01-2024 Anticoagulant drug monitoring 05/01/2024 11:30 AM EDT Anticoagulation Visit [facility] [address] [address] Wstr, Anticoag [facility] [address] [place] [address] inr [facility] Comment on above: inr Start: 04-30-2024 End: 04-30-2024 Patient encounter procedure 04/30/2024 2:20 PM EDT Office Visit Cardiothoracic [address] [place] [phone] COMMERCIAL TF- TAVR ( CARLYN) Cardiothoracic Comment on above: COMMERCIAL TF- TAVR ( CARLYN) Start: 04-30-2024 End: 04-30-2024 Patient encounter procedure Cardiology Comment on above: COMMERCIAL TF- TAVR ( CARLYN) Start: 04-30-2024 End: 04-30-2024 ambulatory 04/30/2024 11:00 AM EDT Results Only [facility] [place] [facility] [address] [place] [address] COMMERCIAL TF- TAVR ( CARLYN) [facility] [place] [facility] Comment on above: COMMERCIAL TF- TAVR ( CARLYN) Start: 04-21-2024 End: 04-21-2024 Patient encounter procedure 04/21/2024 11:00 AM EST Office Visit [facility] [place] Department of [facility]ious Disease [address] [place] [address] Geno Hart MD [address] [place] [phone] Return in about 4 months (around 04/18/2024). [facility] Comment on above: Return in about 4 months (around 04/18/19). Start: 04-03-2024 End: 04-03-2024 Anticoagulant drug monitoring 04/03/2024 11:30 AM EST Anticoagulation Visit [facility] [address] [place], [place] [id number] Wstr, Anticoag [facility] [address] [place] [address] inr [facility] Comment on above: inr Start: 03-25-2024 End: 03-25-2024 Patient encounter procedure Cardiology Comment on above: New TAVR Workup NM SPECT/CT CARDIAC AMYLOID Start: 03-25-2024 End: 03-25-2024 ambulatory Pulmonary Medicine Comment on above: New TAVR Workup Start: 03-24-2024 End: 03-24-2024 Admission to same day surgery center 03/24/2024 5:45 PM EST - 03/24/2024 6:53 PM EST Surgery HOSP [employer] [address] [place] [address] Michael Beavers MD [address] [place], [place] [id number] CORONARY ANGIO W CATH PLACE W IMAGE INJECT & INTERP W LT HEART CATH W INJECT LT VENTRGRAPHY HOSP [employer] Comment on above: CORONARY ANGIO W CATH PLACE W IMAGE INJE CT & INTERP W LT HEART CATH W INJECT LT VENTRGRAPHY Start: 03-24-2024 End: 03-24-2024 Cath plmt l hrt & arts w/njx & angio img s&i CORONARY ANGIO W CATH PLACE W IMAGE INJECT & INTERP W LT HEART CATH W INJECT LT VENTRGRAPHY Nonrheumatic aortic valve stenosis 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 0] Start: 03-24-2024 End: 03-24-2024 Patient encounter procedure 03/24/2024 10:00 AM EST Office Visit Admitting [address] [place] [address] ADMIT Admitting Comment on above: ADMIT Start: 03-24-2024 End: 03-24-2024 ambulatory Cardiology Comment on above: [facility] Start: 03-21-2024 End: 03-21-2024 ambulatory [facility] J1-4 [facility] mikal Rosales Comment on above: New TAVR Workup Start: 03-21-2024 End: 03-21-2024 Patient encounter procedure Radiology Comment on above: New TAVR Workup Start: 03-21-2024 End: 03-21-2024 Patient encounter procedure 03/21/2024 9:30 AM EST Office Visit Cardiology [address] [place] [address] [place] [address] [place] [address] Clinician, Interventional [address] [place] [address] New TAVR Workup Cardiology Comment on above: New TAVR Workup Start: 03-03-2024 BP Controlled (<130/80) BP Controlled (<130/80) [facility] inic Start: 02-29-2024 End: 02-29-2024 Patient encounter procedure 02/29/2024 3:40 PM EST Office Visit [facility] [address] [place] [address] Claudine Durán MD [address] [place] [address] 4 Month follow up [facility] [place] Comment on above: 4 Month follow up Start: 02-29-2024 End: 02-29-2024 Anticoagulant drug monitoring 02/29/2024 3:30 PM EST Anticoagulation Visit Coumadin [facility] [address] [place] [address] Wstr, [facility] [address] [place] [address] inr Coumadin [facility] Comment on above: inr Start: 02-25-2024 End: 02-25-2024 Patient encounter procedure 02/25/2024 12:15 PM EST Office Visit Cardiology [address] [place] [address] Ines Drew MD [address] [place] [address] Aortic valve stenosis, etiology of cardiac valve disease unspecified [I35.0] Cardiology Comment on above: Aortic valve stenosis, etiology of cardi ac valve disease unspecified [I35.0] Start: 02-20-2024 Advance Directive Discussion Advance Directive Discussion [facility] Start: 01-31-2024 End: 01-31-2024 Anticoagulant drug monitoring 01/31/2024 10:30 AM EST Anticoagulation Visit [facility] [address] [place] [address] Wstr, Anticoag [facility] [address] [place] [address] inr Coumadin [facility] Comment on above: inr Start: 01-25-2024 End: 01-25-2024 Patient encounter procedure 01/25/2024 11:20 AM EST Office Visit Cardiology [address] [place] [address] William Messina DO [address] [place] [address] 3 month follow up Cardiology Comment on above: 3 month follow up Start: 01-18-2024 End: 10-17-2024 ECHO LIMITED ECHO LIMITED Cardiology Routine Pericardial effusion Expected: 01/18/2024 (Approximate), Expires: 10/17/2024 [facility] Work Phone: Comment on above: Expected: 01/18/2024 (Approximate), Expi res: 10/17/2024 Start: 01-18-2024 End: 01-18-2024 Patient encounter procedure 01/18/2024 10:30 AM EST Office Visit Cardiology [address] [address] Pericardial effusion [I31.39] Cardiology Comment on above: Pericardial effusion [I31.39] Start: 01-17-2024 Covid-19 Vaccine () Covid-19 Vaccine () [facility] Start: 01-10-2024 End: 01-10-2024 Anticoagulant drug monitoring 01/10/2024 12:00 PM EST Anticoagulation Visit Coumadin [facility] [address] [place], [place] [id number] Wstr, Anticoag [facility] [address] [place], [place] [id number] inr [facility] Comment on above: inr Start: 01-08-2024 End: 04-08-2024 CBC W Auto Differential panel - Blood COMPLETE BLOOD COUNT AND DIFFERENTIAL Lab Routine Nonrheumatic aortic valve stenosis Aortic valve disorder Expected: 01/08/2024, Expires: 04/08/2024 [facility] Comment on above: Expected: 01/08/2024, Expires: Start: 01-08-2024 End: 04-08-2024 Comprehensive metabolic 2000 panel - Serum or Plasma COMPREHENSIVE METABOLIC PANEL Lab Routine Nonrheumatic aortic valve stenosis Aortic valve disorder Expected: 01/08/2024, Expires: 04/08/2024 [facility] Comment on above: Expected: 01/08/2024, Expires: 5 Start: 01-08-2024 End: 04-08-2024 HIGH SENSITIVITY TROPONIN T HIGH SENSITIVITY TROPONIN T Lab Routine Nonrheumatic aortic valve stenosis Expected: 01/08/2024, Expires: 04/08/2024 [facility] Comment on above: Expected: 01/08/2024, Expires: 5 Start: 01-08-2024 End: 04-08-2024 Lipoprotein a [Mass/volume] in Serum or Plasma LIPOPROTEIN (A) Lab Routine Nonrheumatic aortic valve stenosis Expected: 01/08/2024, Expires: 04/08/2024 [facility] Comment on above: Expected: 01/08/2024, Expires: 5 Start: 01-08-2024 End: 04-08-2024 Natriuretic peptide.B prohormone N-Terminal [Mass/volume] in Serum or Plasma NT PRO BNP Lab Routine Nonrheumatic aortic valve stenosis Expected: 01/08/2024, Expires: 04/08/2024 [facility] Comment on above: Expected: 01/08/2024, Expires: 5 Start: 01-08-2024 End: 04-08-2024 PT panel - Platelet poor plasma by Coagulation assay PROTHROMBIN TIME Lab STAT Nonrheumatic aortic valve stenosis Expected: 01/08/2024, Expires: 04/08/2024 [facility] Comment on above: Expected: 01/08/2024, Expires: 5 Start: 01-08-2024 End: 01-08-2024 Patient encounter procedure 01/08/2024 10:30 AM EST Office Visit [facility] [address] [place] [address] Geno Hart MD [address] [place] [address] follow up [facility] Comment on above: follow up Start: 01-05-2024 BP Controlled (<130/80) BP Controlled (<130/80) [facility] Start: 01-02-2024 End: 01-02-2024 Patient encounter procedure 01/02/2024 9:45 AM EST Office Visit Cardiology [address] [id number] Ines Drew MD [address] [place] [address] DX: Aortic valve stenosis, etiology of cardiac valve disease unspecified; Mitral valve stenosis, unspecified etiology Cardiology Comment on above: DX: Aortic valve stenosis, etiology of c ardiac valve disease unspecified; Mitral valve stenosis, unspecified etiology Start: 01-02-2024 End: 01-02-2024 ambulatory 01/02/2024 9:00 AM EST Results Only Cardiology [address] [place] [address] DX: Aortic valve stenosis, etiology of cardiac valve disease unspecified; Mitral valve stenosis, unspecified etiology Cardiology Comment on above: DX: Aortic valve stenosis, etiology of c ardiac valve disease unspecified; Mitral valve stenosis, unspecified etiology Start: 12-27-2023 End: 12-27-2023 Anticoagulant drug monitoring 12/27/2023 10:30 AM EST [facility]tico[facility] [address] [place] [address] [facility] [address] [place] [address] inr [facility] Comment on above: inr Start: 12-18-2023 End: 12-18-2023 Patient encounter procedure 12/18/2023 11:00 AM EDT Office Visit [facility] [address] [place] [address] Geno Hart MD [address] [place] [address] follow up [facility] Comment on above: follow up Start: 12-13-2023 End: 12-13-2023 Anticoagulant drug monitoring 12/13/2023 10:45 AM EDT Anticoagulation Visit [facility] [address] [place] [address] Wstr, [facility] [address] [facility] [place] [address] inr [facility] Comment on above: inr Start: 11-29-2023 End: 11-29-2023 Anticoagulant drug monitoring 11/29/2023 11:00 AM EDT Anticoagulation Visit [facility] [address] [facility] [place] [facility] [place] [address] Wstr, Anticoag [facility] [address] [facility] [place] [address] inr [facility] Comment on above: inr Start: 11-15-2023 End: 11-15-2023 Anticoagulant drug monitoring 11/15/2023 12:00 PM EDT Anticoagulation Visit [facility] [address] [facility] [place] [facility] [place] [address] Wstr, Anticoag [facility] [address] [place] [address] [facility]r [facility] Comment on above: inr Start: 11-08-2023 End: 11-08-2023 Anticoagulant drug monitoring 11/08/2023 1:00 PM EDT Antico[facility] Visit [facility] [address] [place] [address] Wstr, Anticoag [facility] [address] [place] [address] inr [facility] Comment on above: inr Start: 10-28-2023 BP CONTROLLED (<130/80) BP CONTROLLED (<130/80) [facility] Start: 10-25-2023 End: 10-25-2023 Anticoagulant drug monitoring 10/25/2023 12:00 PM EDT Anticoagulation Visit [facility] [address] [place] [address] Wstr, Anticoag [facility] [address] [place] [address] [facility]r [facility] Comment on above: inr Start: 10-21-2023 Covid-19 Vaccine ( season) Covid-19 Vaccine () [facility] Start: 10-21-2023 Covid-19 Vaccine () Covid-19 Vaccine () [facility] Start: 10-21-2023 Influenza vaccination Influenza Vaccine (#1) [facility] Start: 10-19-2023 End: 10-19-2023 Anticoagulant drug monitoring 10/19/2023 11:00 AM EDT Anticoagulation Visit [facility] [address] [place] [address] Wstr, Anticoag [facility] [address] [place] [address] [facility]r [facility] Comment on above: inr Start: 10-18-2023 End: 10-18-2023 Patient encounter procedure 10/18/2023 10:00 AM EDT Office Visit Cardiology [address] [address] Bibi Alegria APRN.[employer] [address] [place] [address] 1 month follow up Cardiology Comment on above: 1 month follow up Start: 10-11-2023 End: 10-11-2023 Patient encounter procedure 10/11/2023 1:00 PM EDT Office Visit [facility] [address] [place] [address] Jimbo Swanson APRN.[employer] [address] [place] [address] 4Month follow up [facility] Comment on above: 4Month follow up Start: 09-28-2023 End: 09-28-2023 Patient encounter procedure 09/28/2023 10:30 AM EDT Office Visit Cardiology [address] [address] Nonrheumatic aortic valve stenosis [I35.0] Cardiology Comment on above: Nonrheumatic aortic valve stenosis [I35. 0] Start: 09-27-2023 End: 09-27-2023 Anticoagulant drug monitoring 09/27/2023 10:45 AM EDT Anticoagulation [facility] [address] [place] [address] [facility] [address] [place] [address] inr [facility] Comment on above: inr Start: 09-20-2023 End: 09-20-2023 Anticoagulant drug monitoring 09/20/2023 10:00 AM EDT Anticoagulation Visit [facility] [address] [place] [address] Wstr, Anticoag [facility] [address] [place] [address] inr [facility] Comment on above: inr Start: 09-10-2023 End: 12-10-2023 Basic metabolic 2000 panel - Serum or Plasma BASIC METABOLIC PANEL Lab Routine Nonrheumatic aortic valve stenosis Mitral valve stenosis, non-rheumatic Essential hypertension Pericardial effusion (noninflammatory) Leg edema Expected: 09/10/2023, Expires: 12/10/2023 [facility] Comment on above: Expected: 09/10/2023, Expires: Start: 09-10-2023 End: 12-10-2023 Natriuretic peptide.B prohormone N-Terminal [Mass/volume] in Serum or Plasma NT PRO BNP Lab Routine Nonrheumatic aortic valve stenosis Mitral valve stenosis, non-rheumatic Essential hypertension Pericardial effusion (noninflammatory) Leg edema Expected: 09/10/2023, Expires: 12/10/2023 [facility] Comment on above: Expected: 09/10/2023, Expires: Start: 08-30-2023 End: 08-30-2023 Anticoagulant drug monitoring 08/30/2023 12:45 PM EDT Anticoagulation Visit [facility] [address] [place] [address] Wstr, Anticoag [facility] [address] [place], [place] [id number] [facility] Comment on above: inr Start: 08-28-2023 End: 11-27-2023 Histoplasma capsulatum Ab [Presence] in Serum by Immune diffusion (ID) HISTOPLASMA AB ID Lab Routine Disseminated histoplasmosis Encounter for long-term (current) use of antibiotics Expected: 08/28/2023, Expires: 11/27/2023 [facility] Work Phone: Comment on above: Expected: 08/28/2023, Expires: Start: 08-28-2023 End: 08-28-2023 Patient encounter procedure 08/28/2023 9:00 AM EDT Office Visit [facility] [address] [id number] Geno Hart MD [address] [address] follow up [facility] Comment on above: follow up Start: 08-27-2023 End: 08-27-2023 Patient encounter procedure 08/27/2023 8:20 AM EDT Office Visit Cardiology [address] [place] [address] William Messina, [address] [place] [address] Annual Cardiology Comment on above: Annual Start: 08-22-2023 End: 08-22-2023 Anticoagulant drug monitoring 08/22/2023 9:30 AM EDT Anticoagulation Visit [facility] [address] [place], [place] [address] Wstr, Anticoag [facility] [address] [place], [place] [id number] [facility] Comment on above: inr Start: 08-15-2023 End: 11-14-2023 Basic metabolic 2000 panel - Serum or Plasma BASIC METABOLIC PANEL Lab Routine Encounter for therapeutic drug monitoring Expected: 08/15/2023, Expires: 11/14/2023 [facility] Work Phone: Comment on above: Expected: 08/15/2023, Expires: Start: 08-15-2023 End: 08-15-2023 Patient encounter procedure Radiology Comment on above: Right knee Right knee pain/swel ling Start: 08-13-2023 End: 08-13-2023 Patient encounter procedure 08/13/2023 9:20 AM EDT Office Visit Cardiology [address] [place], [place] [id number] William Messina, [address] [place], [place] [phone] annual Cardiology Comment on above: annual Start: 08-09-2023 End: 08-09-2023 Anticoagulant drug monitoring 08/09/2023 9:30 AM EDT Anticoagulation Visit [facility] [address] [place] [address] Wstr, Anticoag [facility] [address] [place] [address] inr [facility] Comment on above: inr Start: 07-26-2023 End: 07-26-2023 Anticoagulant drug monitoring 07/26/2023 9:30 AM EDT Anticoagulation Visit [facility] [address] [place] [address] Wstr, Anticoag [facility] [address] [place] [address] inr [facility] Comment on above: inr Start: 07-21-2023 BP CONTROLLED (<130/80) BP CONTROLLED (<130/80) [facility] in Start: 07-12-2023 End: 07-12-2023 Anticoagulant drug monitoring 07/12/2023 9:00 AM EDT Antico[facility] [address] [place] [address] Wstr, Anticoag [facility] [address] [place] [address] inr [facility] Comment on above: inr Start: 07-11-2023 End: 07-11-2023 Patient encounter procedure 07/11/2023 12:00 PM EDT Office Visit [facility] [address] [place] [address] Acute pain of right knee [M25.561] [facility] Comment on above: Acute pain of right knee [M25.561] Start: 07-08-2023 DIABETES SCREEN DIABETES SCREEN [facility] Start: 07-08-2023 Diabetes Screening Diabetes Screening [facility] Start: 05-04-2023 Blood chemistry [facility] Start: 04-30-2023 Development of care plan [facility] Start: 04-30-2023 Patient discharge [facility] Start: 04-27-2023 Blood chemistry [facility] Start: 04-20-2023 Blood chemistry [facility] Start: 04-19-2023 Prothrombin time [facility] Start: 04-17-2023 Prothrombin time [facility] Start: 04-15-2023 Wound care [facility] Start: 04-10-2023 Consultation for treatment [facility] Start: 04-09-2023 Speech therapy management [facility] Start: 04-09-2023 Speech therapy assessment [facility] Start: 04-08-2023 [facility] Start: 04-08-2023 Inhalation therapy procedure [facility] Start: 04-06-2023 Development of care plan [facility] Start: 04-06-2023 Developing a treatment plan [facility] Start: 04-05-2023 Admission procedure [facility] Start: 04-05-2023 Measuring intake and output [facility] Start: 04-05-2023 Patient referral to dietitian [facility] Start: 04-05-2023 Referral to occupational therapist [facility] Start: 04-05-2023 Referral to service [facility] Start: 04-05-2023 Vital signs measurements [facility] Start: 04-05-2023 End: 04-05-2023 [facility] Start: 04-05-2023 Verification routine [facility] Start: 04-05-2023 Patient discharge [facility] Start: 04-05-2023 Prothrombin time [facility] Start: 04-04-2023 Application of intermittent pneumatic compression device [facility] Start: 04-04-2023 Application of intermittent pneumatic compression device [facility] Start: 04-04-2023 Consultation [facility] Start: 04-04-2023 Prothrombin time [facility] Start: 04-03-2023 Consultation [facility] Start: 04-03-2023 Prothrombin time [facility] Start: 04-02-2023 Prothrombin time [facility] Start: 04-01-2023 End: 07-01-2023 ALK PHOS ISOENZYM BL ALK PHOS ISOENZYM BL Lab Routine Elevated alkaline phosphatase level Expected: 04/01/2023, Expires: 07/01/2023 [facility] Work Phone: Comment on above: Expected: 04/01/2023, Expires: 4 Start: 04-01-2023 End: 07-01-2023 Comprehensive metabolic 2000 panel - Serum or Plasma COMP METABOLIC PANEL Lab Routine Hypoalbuminemia Elevated alkaline phosphatase level Elevated LFTs Expected: 04/01/2023, Expires: 07/01/2023 [facility] Work Phone: Comment on above: Expected: 04/01/2023, Expires: 4 Start: 04-01-2023 Application of elastic bandage [facility] Start: 04-01-2023 Administration of blood product [facility] Start: 04-01-2023 End: 07-01-2023 CBC W Auto Differential panel - Blood [facility] Comment on above: Expected: 04/01/2023, Expires: 4 Start: 04-01-2023 Magnesium [Mass/volume] in Serum or Plasma [facility] Start: 04-01-2023 Prothrombin time [facility] Start: 04-01-2023 [facility] Start: 04-01-2023 Inhalation therapy procedure [facility] Start: 03-31-2023 Following clinical pathway protocol [facility] Start: 03-31-2023 Ankle 2 Views Ankle 2 Views [facility] Start: 03-31-2023 Assessment of risk of venous thromboembolism [facility] Start: 03-31-2023 C reactive protein [Mass/volume] in Serum or Plasma [facility] Start: 03-31-2023 Consultation for treatment [facility] Start: 03-31-2023 Elevation of affected extremity [facility] Start: 03-31-2023 Erythrocyte sedimentation rate [facility] Start: 03-31-2023 Insertion of catheter into peripheral vein [facility] Start: 03-31-2023 Measuring intake and output [facility] Start: 03-31-2023 Providing care according to standard [facility] Start: 03-31-2023 Provision of activity privileges [facility] Start: 03-31-2023 Referral to occupational therapist [facility] Start: 03-31-2023 Referral to service [facility] Start: 03-31-2023 US Heart [facility] Start: 03-31-2023 US.doppler Lower extremity vein [facility] Start: 03-31-2023 XR Ankle 2 Views [facility] Start: 03-31-2023 [facility] Start: 03-31-2023 Verification routine [facility] Start: 03-31-2023 Admission procedure [facility] Start: 03-31-2023 Consultation [facility] Start: 03-31-2023 Patient referral to dietitian [facility] Start: 03-28-2023 [facility] Start: 03-28-2023 [facility] Start: 03-28-2023 Emergency department visit high/urgent severity [facility] Start: 03-27-2023 Patient discharge [facility] Start: 03-27-2023 [facility] Start: 03-27-2023 [facility] Start: 03-26-2023 Following clinical pathway protocol [facility] Start: 03-26-2023 Assessment of risk of venous thromboembolism [facility] Start: 03-26-2023 Incentive spirometry [facility] Start: 03-26-2023 Insertion of catheter into peripheral vein [facility] Start: 03-26-2023 Measuring intake and output [facility] Start: 03-26-2023 Providing care according to standard [facility] Start: 03-26-2023 Provision of activity privileges [facility] Start: 03-26-2023 Referral to occupational therapist [facility] Start: 03-26-2023 Referral to service [facility] Start: 03-26-2023 [facility] Start: 03-26-2023 Verification routine [facility] Start: 03-26-2023 Admission procedure [facility] Start: 03-26-2023 Hospital admission, emergency, from emergency room, medical nature [facility] Start: 03-26-2023 [facility] Start: 03-26-2023 Inhalation therapy procedure [facility] Start: 03-19-2023 Fresh frozen plasma [facility] Start: 03-19-2023 End: 03-19-2023 [facility] Start: 03-19-2023 Administration of blood product [facility] Start: 03-13-2023 ANNUAL PCP TEAM CHRONIC DISEASE VISIT ANNUAL PCP TEAM CHRONIC DISEASE VISIT [facility] Start: 03-13-2023 BP CONTROLLED (<130/80) BP CONTROLLED (<130/80) [facility] Start: 03-01-2023 Covid-19 Vaccine () Covid-19 Vaccine () [facility] Start: 02-19-2023 Advance Directive Discussion Advance Directive Discussion [facility] Start: 02-19-2023 Behavioral Health Screening Behavioral Health Screening [facility] Start: 02-19-2023 Depression Assessment Depression Assessment [facility] Start: 01-23-2023 End: 08-23-2023 Ct thorax w/o contrast material CT CHEST WO IVCON Radiology Routine Lung nodules Bronchiectasis without complication (HCC) Expected: 01/23/2023, Expires: 08/23/2023 [facility] Work Phone: Comment on above: Expected: 01/23/2023, Expires: Start: 11-29-2022 BP CONTROLLED (<130/80) BP CONTROLLED (<130/80) [facility] Start: 11-10-2022 Adult depression screening assessment DEPRESSION SCREENING [facility] Start: 10-20-2022 Covid-19 Vaccine ( season) Covid-19 Vaccine () [facility] Start: 10-20-2022 Influenza vaccination INFLUENZA (#1) [facility] Start: 09-20-2022 BP CONTROLLED (<130/80) BP CONTROLLED (<130/80) [facility] Start: 09-05-2022 Mammography MAMMOGRAM [facility] Start: 07-11-2022 ANNUAL PCP TEAM CHRONIC DISEASE VISIT ANNUAL PCP TEAM CHRONIC DISEASE VISIT [facility] Start: 07-11-2022 BP CONTROLLED (<130/80) BP CONTROLLED (<130/80) [facility] Start: 03-14-2022 ANNUAL PCP TEAM CHRONIC DISEASE VISIT ANNUAL PCP TEAM CHRONIC DISEASE VISIT [facility] Start: 03-14-2022 BP CONTROLLED (<130/80) BP CONTROLLED (<130/80) [facility] Start: 02-19-2022 ADVANCE DIRECTIVE DISCUSSION ADVANCE DIRECTIVE DISCUSSION [facility] Start: 02-19-2022 DEPRESSION ASSESSMENT DEPRESSION ASSESSMENT [facility] Start: 01-05-2022 COVID-19 VACCINE (7 - Pfizer risk series) COVID-19 VACCINE (7 - Pfizer risk series) [facility] Start: 11-11-2021 COVID-19 VACCINE (5 - Booster for Pfizer series) COVID-19 VACCINE (5 - Booster for Pfizer series) [facility] Start: 11-10-2021 End: 01-10-2022 Alpha 1 antitrypsin [Mass/volume] in Serum or Plasma [id number] BL Lab Routine Chronic obstructive pulmonary disease, unspecified COPD type (HCC) Expected: 11/10/2021, Expires: 01/10/2022 [facility] Work Phone: Comment on above: Expected: 11/10/2021, Expires: Start: 10-20-2021 Influenza vaccination INFLUENZA (#1) [facility] Start: 07-13-2021 Adult depression screening assessment DEPRESSION SCREENING [facility] Start: 06-01-2021 Mammography MAMMOGRAM [facility] Start: 02-19-2021 ADVANCE DIRECTIVE DISCUSSION ADVANCE DIRECTIVE DISCUSSION [facility] Start: 02-19-2021 DEPRESSION ASSESSMENT DEPRESSION ASSESSMENT [facility] Start: 02-08-2021 COVID-19 VACCINE (4 - Booster for Pfizer series) COVID-19 VACCINE (4 - Booster for Pfizer series) [facility] Start: 12-27-2020 LIPID SCREEN LIPID SCREEN [facility] Start: 08-04-2017 FECAL OCCULT BLOOD FECAL OCCULT BLOOD [facility] Start: 08-04-2017 Screening for malignant neoplasm of colon Fecal Occult Blood [facility] Start: 2007 RSV Vaccine (1 - 1-dose 60+ series) RSV Vaccine (1 - 1-dose 60+ series) [facility] Start: 05-29-1992 COLOGUARD (FIT-DNA) COLOGUARD (FIT-DNA) [facility] Start: 05-29-[address] COLONOGRAPHY [facility] Start: 05-29-1992 Screening for malignant neoplasm of colon [facility] Start: 05-29-1992 SIGMOIDOSCOPY SIGMOIDOSCOPY [facility] Start: 05-29-1977 Zoledronic acid therapy ALPHA-1 ANTITRYPSIN DEFICIENCY SCREENING [facility] Start: 05-29-1965 Anxiety Screening Anxiety Screening [facility] Start: 05-29-1965 BP CONTROLLED (<130/80) BP CONTROLLED (<130/80) [facility] Start: 05-29-1965 Depression Screening Depression Screening [facility] Alanine aminotransfe rase [Enzymatic activity/volume] in Serum or Plasma [facility] Albumin [Mass/volume ] in Serum or Plasma [facility] Alkaline phosphatase [Enzymatic activity/volume] in Serum or Plasma [facility] Anion gap in Serum o r Plasma [facility] Anion gap measurement [facility] Anion gap measurement [facility] Anion gap measurement [facility] Anion gap measurement [facility] Aspartate aminotransferase [Enzymatic activity/volume] in Serum or Plasma [facility] End: 08-21-2024 Basic metabolic 2000 panel - Serum or Plasma BASIC METABOLIC PANEL Lab Routine Encounter for long-term current use of medication 20 Occurrences starting 08/22/2023 until 08/21/2024 [facility] Work Phone: Comment on above: 20 Occurrences starting 08/22/2023 until 08/21/2024 Bilirubin measuremen t, urine [facility] Bilirubin, total measurement [facility] BUN/Creatinine ratio [facility] BUN/Creatinine ratio [facility] BUN/Creatinine ratio [facility] BUN/Creatinine ratio [facility] BUN/Creatinine ratio [facility] Calcium [Mass/volume ] in Serum or Plasma [facility] Calcium [Mass/volume ] in Serum or Plasma [facility] Calcium [Mass/volume ] in Serum or Plasma [facility] Calcium [Mass/volume ] in Serum or Plasma [facility] Calcium [Mass/volume ] in Serum or Plasma [facility] Carbon dioxide, tota l [Moles/volume] in Central venous blood [facility] Carbon dioxide, tota l [Moles/volume] in Serum or Plasma [facility] Carbon dioxide, tota l [Moles/volume] in Serum or Plasma [facility] Carbon dioxide, tota l [Moles/volume] in Serum or Plasma [facility] Carbon dioxide, tota l [Moles/volume] in Serum or Plasma [facility] CARDIAC REHAB II OUT PT ([place], [place]) CARDIAC REHAB II OUTPT ([place]) BIC Routine Nonrheumatic aortic valve 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) Ordered: 05/05/2024 [facility] Work Phone: Comment on above: Ordered: 05/05/2024 Chloride [Moles/volu me] in Serum or Plasma [facility] Chloride [Moles/volu me] in Serum or Plasma [facility] Chloride [Moles/volu me] in Serum or Plasma [facility] Chloride [Moles/volu me] in Serum or Plasma [facility] Creatinine [Mass/vol ume] in Serum or Plasma [facility] Creatinine [Moles/volume] in Serum or Plasma [facility] Creatinine [Moles/volume] in Serum or Plasma [facility] Creatinine [Moles/volume] in Serum or Plasma [facility] Creatinine [Moles/volume] in Serum or Plasma [facility] CT Chest WO contrast CT CHEST WO IVCON Radiology Routine Disseminated histoplasmosis 08/30/2023 2:07 PM EDT [facility] Work Phone: End: 09-26-2024 CT Chest WO contrast CT CHEST WO IVCON Radiology Routine Disseminated histoplasmosis 1 Occurrences starting 08/28/2023 until 09/26/2024 [facility] Comment on above: 1 Occurrences starting 08/28/2023 until 09/26/2024 End: 12-29-2022 Ct thorax w/o contrast material CT CHEST WO IVCON Radiology Routine Lung nodules 1 Occurrences starting 11/29/2021 until 12/29/2022 [facility] Work Phone: Comment on above: 1 Occurrences starting 11/29/2021 until 12/29/2022 End: 02-06-2025 CTA Chest vessels and Abdominal vessels and Pelvis vessels W contrast IV CTA CHEST/ABD/PEL (GATED) W IVCON Radiology Routine Nonrheumatic aortic valve stenosis Encounter for preprocedural cardiovascular examination 1 Occurrences starting 01/08/2024 until 02/06/2025 [facility] Comment on above: 1 Occurrences starting 01/08/2024 until 02/06/2025 End: 08-12-2022 ECG COMPLETE ECG COMPLETE ECG Routine Aortic stenosis with bicuspid valve Essential hypertension 1 Occurrences starting 08/12/2021 until 08/12/2022 [facility] Work Phone: Comment on above: 1 Occurrences starting 08/12/2021 until 08/12/2022 End: 01-07-2025 ECG COMPLETE ECG COMPLETE ECG Routine Nonrheumatic aortic valve stenosis Aortic valve disorder 1 Occurrences starting 01/08/2024 until 01/07/2025 [facility] Comment on above: 1 Occurrences starting 01/08/2024 until 01/07/2025 End: 04-15-2025 ECG COMPLETE ECG COMPLETE ECG Routine Nonrheumatic aortic valve stenosis Aortic valve disorder 1 Occurrences starting 04/15/2024 until 04/15/2025 [facility] Work Phone: Comment on above: 1 Occurrences starting 04/15/2024 until 04/15/2025 End: 05-02-2025 ECG COMPLETE ECG COMPLETE ECG Routine Nonrheumatic aortic valve stenosis 1 Occurrences starting 05/02/2024 until 05/02/2025 [facility] Work Phone: Comment on above: 1 Occurrences starting 05/02/2024 until 05/02/2025 End: 08-26-2024 ECHO LIMITED ECHO LIMITED Cardiology Routine Nonrheumatic aortic valve stenosis Mitral valve stenosis, non-rheumatic Essential hypertension Pericardial effusion (noninflammatory) 1 Occurrences starting 08/27/2023 until 08/26/2024 [facility] Work Phone: Comment on above: 1 Occurrences starting 08/27/2023 until 08/26/2024 End: 08-12-2022 Echocardiography ECHO Cardiology Routine Aortic stenosis with bicuspid valve Essential hypertension 1 Occurrences starting 08/12/2021 until 08/12/2022 [facility] Work Phone: Comment on above: 1 Occurrences starting 08/12/2021 until 08/12/2022 End: 08-30-2023 Echocardiography ECHO Cardiology Routine Aortic stenosis with bicuspid valve 1 Occurrences starting 08/29/2022 until 08/30/2023 [facility] Work Phone: Comment on above: 1 Occurrences starting 08/29/2022 until 08/30/2023 End: 01-07-2025 Echocardiography ECHO Cardiology Routine Nonrheumatic aortic valve stenosis Aortic valve disorder 1 Occurrences starting 01/08/2024 until 01/07/2025 [facility] Comment on above: 1 Occurrences starting 01/08/2024 until 01/07/2025 Erythrocyte mean corpuscular volume determination [facility] Erythrocyte mean corpuscular volume determination [facility] Glucose [Mass/volume ] in Serum or Plasma [facility] Glucose [Mass/volume ] in Serum or Plasma [facility] Glucose [Mass/volume ] in Serum or Plasma [facility] Glucose [Mass/volume ] in Serum or Plasma [facility] Glucose [Mass/volume ] in Serum or Plasma [facility] Hematocrit [Volume Fraction] of Blood [facility] Hematocrit [Volume Fraction] of Blood [facility] Hemoglobin [Mass/vol ume] in Blood [facility] Hemoglobin [Mass/vol ume] in Blood [facility] Hemoglobin [Presence ] in Urine [facility] Histoplasma capsulat um Ab [Presence] in Serum by Immune diffusion (ID) HISTOPLASMA AB ID Lab Routine Disseminated histoplasmosis Encounter for long-term (current) use of antibiotics 08/30/2023 1:14 PM EDT [facility] INR in Blood by Coagulation assay [facility] INR in Blood by Coagulation assay [facility] INR in Blood by Coagulation assay [facility] INR in Blood by Coagulation assay [facility] INR in Blood by Coagulation assay [facility] INR in Blood by Coagulation assay [facility] INR in Blood by Coagulation assay [facility] INR in Blood by Coagulation assay [facility] INR in Blood by Coagulation assay [facility] INR in Blood by Coagulation assay [facility] INR in Blood by Coagulation assay [facility] End: 10-27-2022 INR in Platelet poor plasma by Coagulation assay INR (POC) Lab Routine Personal history of DVT (deep vein thrombosis) Once per month for 99 Occurrences starting 11/09/2021 until 10/27/2022 [facility] Work Phone: Comment on above: Once per month for 99 Occurrences starti ng 11/09/2021 until 10/27/2022 End: 11-10-2023 INR in Platelet poor plasma by Coagulation assay INR (POC) Lab Routine Personal history of DVT (deep vein thrombosis) Once per month for 99 Occurrences starting 11/09/2022 until 11/10/2023 [facility] Work Phone: Comment on above: Once per month for 99 Occurrences starti ng 11/09/2022 until 11/10/2023 End: 11-14-2024 INR in Platelet poor plasma by Coagulation assay INR (POC) Lab Routine Personal history of DVT (deep vein thrombosis) Once per month for 99 Occurrences starting 11/15/2023 until 11/14/2024 [facility] Work Phone: Comment on above: Once per month for 99 Occurrences starti ng 11/15/2023 until 11/14/2024 Leukocytes [#/volume ] in Blood [facility] Leukocytes [#/volume ] in Blood [facility] End: 03-14-2022 LIPID PANEL BASIC LIPID PANEL BASIC Lab Routine Essential hypertension 1 Occurrences starting 03/14/2021 until 03/14/2022 [facility] Work Phone: Comment on above: 1 Occurrences starting 03/14/2021 until 03/14/2022 End: 02-06-2025 LUNG DIFFUSION CAPACITY (DLCO) LUNG DIFFUSION CAPACITY (DLCO) PFT Routine Nonrheumatic aortic valve stenosis 1 Occurrences starting 01/08/2024 until 02/06/2025 [facility] Comment on above: 1 Occurrences starting 01/08/2024 until 02/06/2025 LUNG DIFFUSION CAPAC ITY (DLCO) LUNG DIFFUSION CAPACITY (DLCO) PFT Routine Nonrheumatic aortic valve stenosis 03/25/2024 9:28 AM EST [facility] Work Phone: End: 11-26-2023 SABINO SCREENING SABINO SCREENING Radiology Routine Encounter for screening mammogram for breast cancer 1 Occurrences starting 10/27/2022 until 11/26/2023 [facility] Work Phone: Comment on above: 1 Occurrences starting 10/27/2022 until 11/26/2023 End: 11-26-2023 SABINO SCREENING W ALIZE SABINO SCREENING W ALIZE Radiology Routine Encounter for screening mammogram for breast cancer 1 Occurrences starting 10/27/2022 until 11/26/2023 [facility] Work Phone: Comment on above: 1 Occurrences starting 10/27/2022 until 11/26/2023 Mean corpuscular hemoglobin concentration determination [facility] Mean corpuscular hemoglobin concentration determination [facility] Mean corpuscular hemoglobin determination [facility] Mean corpuscular hemoglobin determination [facility] Measurement of keton es in urine using dipstick [facility] Measurement of renal function [facility] Measurement of renal function [facility] Measurement of renal function [facility] Measurement of renal function [facility] Measurement of renal function [facility] Microscopic urinalysis [facility] Microscopic urinalysis [facility] Neutrophil count [facility] Neutrophil count [facility] Neutrophil percent differential count [facility] Neutrophil percent differential count [facility] Organism count, microscopic method [facility] Patient Education [facility] Work Phone: Patient referral [facility] Work Phone: pH of Urine [facility] Platelets [#/volume] in Blood [facility] Platelets [#/volume] in Blood [facility] Potassium [Moles/vol ume] in Serum or Plasma [facility] Potassium [Moles/vol ume] in Serum or Plasma [facility] Potassium [Moles/vol ume] in Serum or Plasma [facility] Potassium [Moles/vol ume] in Serum or Plasma [facility] Potassium measurement [facility] Prothrombin time [facility] End: 10-27-2022 PT panel - Platelet poor plasma by Coagulation assay PROTHROMBIN TIME/PT Lab STAT Personal history of DVT (deep vein thrombosis) Once per month for 99 Occurrences starting 11/09/2021 until 10/27/2022 [facility] Work Phone: Comment on above: Once per month for 99 Occurrences starti ng 11/09/2021 until 10/27/2022 End: 11-09-2023 PT panel - Platelet poor plasma by Coagulation assay PROTHROMBIN TIME/PT Lab STAT Personal history of DVT (deep vein thrombosis) Once per month for 99 Occurrences starting 11/09/2022 until 11/09/2023 [facility] Work Phone: Comment on above: Once per month for 99 Occurrences starti ng 11/09/2022 until 11/09/2023 End: 11-14-2024 PT panel - Platelet poor plasma by Coagulation assay PROTHROMBIN TIME Lab STAT Personal history of DVT (deep vein thrombosis) Once per month for 99 Occurrences starting 11/15/2023 until 11/14/2024 [facility] Comment on above: Once per month for 99 Occurrences start ng 11/15/2023 until 11/14/2024 Red blood cell count [facility] Red blood cell count [facility] Red cell distributio n width determination [facility] Red cell distributio n width determination [facility] Serum chloride measurement [facility] Sodium [Moles/volume ] in Serum or Plasma [facility] Sodium [Moles/volume ] in Serum or Plasma [facility] Sodium [Moles/volume ] in Serum or Plasma [facility] Sodium [Moles/volume ] in Serum or Plasma [facility] Sodium measurement [facility] Specific gravity of Urine [facility] End: 02-06-2025 SPECT Heart for infarct W Tc-99m PYP IV NM SPECT/CT CARDIAC AMYLOID Radiology Routine Nonrheumatic aortic valve stenosis 1 Occurrences starting 01/08/2024 until 02/06/2025 [facility] Comment on above: 1 Occurrences starting 01/08/2024 until 02/06/2025 End: 02-06-2025 SPIROMETRY BASELINE ONLY SPIROMETRY BASELINE ONLY PFT Routine Nonrheumatic aortic valve stenosis 1 Occurrences starting 01/08/2024 until 02/06/2025 [facility] Work Phone: Comment on above: 1 Occurrences starting 01/08/2024 until 02/06/2025 SPIROMETRY BASELINE ONLY SPIROME TRY BASELINE ONLY PFT Routine Nonrheumatic aortic valve stenosis 03/25/2024 9:28 AM EST [facility] Work Phone: Total protein measurement [facility] Urea nitrogen [Mass/volume] in Serum or Plasma [facility] Urea nitrogen [Mass/volume] in Serum or Plasma [facility] Urea nitrogen [Mass/volume] in Serum or Plasma [facility] Urea nitrogen [Mass/volume] in Serum or Plasma [facility] Urea nitrogen [Mass/volume] in Serum or Plasma [facility] Urinalysis, blood, qualitative [facility] Urine dipstick for glucose [facility] Urine dipstick for leukocyte esterase [facility] Urine dipstick for nitrite [facility] Urine dipstick for protein [facility] Urine examination [facility] Urine microscopy: epithelial cells [facility] Urine microscopy: epithelial cells [facility] Urine microscopy: re d cells [facility] Urine Microscopy: wh ite cells [facility] Urobilinogen [Presen ce] in Urine [facility] End: 07-09-2024 US Lower extremity vein US LEG VEIN DVT UNL VAS LAB Vascular Lab STAT Acute pain of right knee Pain and swelling of right lower leg 1 Occurrences starting 07/10/2023 until 07/09/2024 [facility] Work Phone: Comment on above: 1 Occurrences starting 07/10/2023 until 07/09/2024 White blood cell count [facility] End: 02-06-2025 XR Chest PA and Lateral XR CHEST 2V FRONTAL/LAT Radiology Routine Nonrheumatic aortic valve stenosis 1 Occurrences starting 01/08/2024 until 02/06/2025 [facility] Comment on above: 1 Occurrences starting 01/08/2024 until 02/06/2025 End: 05-15-2025 XR Chest PA and Lateral XR CHEST 2V FRONTAL/LAT Radiology Routine Nonrheumatic aortic valve stenosis Aortic valve disorder 1 Occurrences starting 04/15/2024 until 05/15/2025 [facility] Comment on above: 1 Occurrences starting 04/15/2024 until 05/15/2025 End: 08-16-2024 XR Knee - right 4 Views XR KNEE GENERAL 4V AP BOTH/PA BOTH/LAT/MERC RIGHT Radiology Routine Right knee pain, unspecified chronicity 1 Occurrences starting 07/18/2023 until 08/16/2024 [facility] Work Phone: Comment on above: 1 Occurrences starting 07/18/2023 until 08/16/2024 End: 08-16-2024 XR Lower extremity - bilateral AP W standing XR LEG FRONTAL HIP TO ANKLE MECHANICAL AXIS Radiology Routine Right knee pain, unspecified chronicity 1 Occurrences starting 07/18/2023 until 08/16/2024 [facility] Comment on above: 1 Occurrences starting 07/18/2023 until 08/16/2024 [facility] Immunizations Immunization Date Immunization Notes Care Provider Galindo leyva 11-22-2023 influenza, high dose seasonal, preservative-free Geno Hart MD Work Phone: [facility] 11-22-2023 influenza virus vacc ine, unspecified formulation Geno Hart MD Work Phone: [facility] 08-01-2023 respiratory syncytia l virus (RSV) vaccine, adjuvanted (AREXVY) Ilda Miller RN Work Phone: [facility] 08-01-2023 zoster vaccine recombinant Claudine Durán MD Work Phone: [facility] 01-04-2023 COVID-19 vaccine, ag e 12+ yr, season (PFIZER-BIONTECH) Jimbo Swanson GATE CLERK.RPG PROGRAMMER Work Phone: [facility] Work Phone: 10-27-2022 influenza (HD-IIV4) vaccine, age 65+ yr, high dose, quadrivalent, PF (FLUZONE HIGH-DOSE) Jimbo Swanson GATE CLERK.RPG PROGRAMMER Work Phone: [facility] Work Phone: 10-27-2022 influenza virus vacc ine, unspecified formulation Anticoag Wstr Work Phone: [facility] 11-18-2021 influenza, high dose seasonal, preservative-free Ilda Miller RN Work Phone: [facility] 11-10-2021 COVID-19 booster vaccine, age 12+ yr, bivalent (PFIZER-BIONTECH) Jimbo Swanson GATE CLERK.RPG PROGRAMMER Work Phone: [facility] Work Phone: 11-10-2021 influenza, high-dose , quadrivalent vaccine (FLUZONE HIGH DOSE QUADRIVALENT) Jimbo Swanson GATE CLERK.RPG PROGRAMMER Work Phone: [facility] Work Phone: 07-11-2021 Covid (Pfizer) Dr. Claudine Martinez [facility] Work Phone: [facility] 07-11-2021 COVID-19 vaccine, ag e 12+ yr (PFIZER-BIONTECH - ARIAS TOP) Anticoag Wstr Work Phone: [facility] 11-21-2020 COVID-19 original vaccine, age 12+ yr, monovalent (PFIZER-BIONTECH - PURPLE TOP) Claudine Durán MD Work Phone: [facility] 11-21-2020 influenza, high dose seasonal, preservative-free Ilda Miller RN Work Phone: [facility] 11-09-2020 COVID-19 vaccine, ag e 12+ yr (PFIZER-BIONTECH - PURPLE TOP) [facility] 11-09-2020 influenza, high-dose , quadrivalent vaccine (FLUZONE HIGH DOSE QUADRIVALENT) [facility] Work Phone: 05-13-2020 COVID-19 vaccine, ag e 12+ yr (PFIZER-BIONTECH - PURPLE TOP) [facility] Work Phone: 04-22-2020 COVID-19 vaccine, ag e 12+ yr (PFIZER-BIONTECH - PURPLE TOP) [facility] Work Phone: 11-06-2019 influenza, high-dose , quadrivalent vaccine (FLUZONE HIGH DOSE QUADRIVALENT) [facility] Work Phone: 11-06-2019 tetanus and diphther ia toxoids, adsorbed, preservative free, for adult use (2 Lf of tetanus toxoid and 2 Lf of diphtheria toxoid) Dr. Claudine Durán Work Phone: [facility] 11-06-2019 tetanus and diphther ia toxoids, adsorbed, preservative free, for adult use (5 Lf of tetanus toxoid and 2 Lf of diphtheria toxoid) [facility] Work Phone: 11-03-2019 influenza, high dose seasonal, preservative-free Ilda Miller RN Work Phone: [facility] 11-28-2018 zoster vaccine recombinant [facility] 11-25-2018 influenza, high dose seasonal, preservative-free Ilda Miller RN Work Phone: [facility] 10-26-2018 Influenza, high dose seasonal Dr. Claudine Durán MD Work Phone: [facility] 10-26-2018 influenza, high dose seasonal, preservative-free [facility] 07-23-2018 zoster vaccine recombinant [facility] 11-27-2017 Influenza, high dose seasonal Dr. Claudine Durán MD Work Phone: [facility] 11-27-2017 influenza, high dose seasonal, preservative-free [facility] 02-07-2017 influenza virus vacc ine, live, attenuated, for intranasal use Ilda Miller RN Work Phone: [facility] 02-07-2017 pneumococcal polysaccharide vaccine, 23 ravi Durán MD Work Phone: [facility] 01-31-2017 Influenza, high dose seasonal Dr. Claudine Durán MD Work Phone: [facility] 01-31-2017 influenza, high dose seasonal, preservative-free [facility] 12-13-2016 pneumococcal polysaccharide vaccine, 23 ravi Durán MD Work Phone: [facility] 11-28-2016 pneumococcal polysaccharide vaccine, 23 ravi Druán MD Work Phone: [facility] 12-13-2015 influenza, high dose seasonal, preservative-free [facility] 11-10-2014 Influenza, high dose seasonal Dr. Claudine Durán MD Work Phone: [facility] 11-10-2014 influenza, high dose seasonal, preservative-free [facility] 03-30-2014 pneumococcal conjuga te vaccine, 13 valent [facility] 12-08-2013 influenza virus vacc ine, live, attenuated, for intranasal use Ilda Miller RN Work Phone: [facility] 12-08-2013 pneumococcal conjuga te vaccine, 7 valent Ilda Miller RN Work Phone: [facility] 12-08-2013 pneumococcal polysaccharide vaccine, 23 valent Claudine Durán MD Work Phone: [facility] 11-24-2013 influenza, injectabl e, quadrivalent, preservative free Dr. Claudine Durán Work Phone: [facility] 11-24-2013 influenza, seasonal, injectable [facility] 03-24-2013 pneumococcal polysaccharide vaccine, 23 valent [facility] 11-18-2012 influenza virus vacc ine, unspecified formulation [facility] Work Phone: 11-10-2011 influenza virus vacc ine, unspecified formulation [facility] 11-23-2010 influenza virus vacc ine, unspecified formulation [facility] 10-07-2009 tetanus toxoid, redu amarilis diphtheria toxoid, and acellular pertussis vaccine, adsorbed [facility] 10-29-2008 influenza virus vacc ine, unspecified formulation [facility] 01-10-2008 influenza virus vacc ine, whole virus Ilda Miller RN Work Phone: [facility] 01-10-2008 influenza, injectabl e, quadrivalent, preservative free Dr. Claudine Durán Work Phone: [facility] 07-09-2007 tuberculin skin test ; purified protein derivative solution, intradermal Jimbo Swanson GATE CLERK.RPG PROGRAMMER Work Phone: [facility] 06-24-2007 tuberculin skin test ; purified protein derivative solution, intradermal Jimbo Swanson GATE CLERK.RPG PROGRAMMER Work Phone: [facility] 09-22-1999 diphtheria and tetan us toxoids, adsorbed for pediatric use [facility] Work Phone: Payers Date Payer Category Payer Self-pay [id number] 2021 Medicare [employer] MEDICARE A ETNA MEDICARE PPO [id number] 2021-Present [phone] [address] [place] [address] PPO [id number] 2021 Medicare [employer] MEDICARE A ETNA MEDICARE PPO [id number] 2021-Present [phone] [address] [place] [address] PPO [id number] 2021 Medicare (Managed Care) [employer] [place] DICARE [id number] 2021 Private Health Insurance [facility] [id number] 2011 Unknown [id number] 1945 Unknown [id number]. 668 Medicare [id number] Private Health Insurance Unknown [id number] 2.0.1.625417.3.579.2. 462 Unknown [id number] 2.0.1.689434.3.579.2. 462 Unknown [id number] 2.16.840.1.727881.3.579.2. 462 Unknown [id number] 2.16.840.1.021369.3.579.2. 462 Unknown [id number] 2.16.840.1.215415.3.579.2. 462 Unknown [id number] 2.16.840.1.058245.3.579.2. 462 Unknown [id number] 2.16.840.1.031047.3.579.2. 462 Unknown [id number] 2.16.840.1.352769.3.579.2. 462 Unknown [id number] 2.16840.1.289921.3.579.2. 462 Unknown [id number] 2.16840.1.190188.3.579.2. 462 Unknown [id number] 2.16840.1.138810.3.579.2. 462 Unknown [id number] 2.16840.1.992171.3.579.2. 462 Unknown [id number] 2.16840.1.147127.3.579.2. 462 Unknown [id number] 2.16.840.1.845053.3.579.2. 462 Unknown [id number] 2.16840.1.194736.3.579.2. 462 Unknown [id number] 2.16840.1.786943.3.579.2. 462 Unknown [id number] 2.16.840.1.661438.3.579.2. 462 Unknown [id number] 2.16.840.1.512539.3.579.2. 462 Unknown [id number] 2.16.840.1.621980.3.579.2. 462 Unknown [id number] 2.16.840.1.841617.3.579.2. 462 Unknown [id number] 2.16840.1.193783.3.579.2. 462 Unknown [id number] 2.16.840.1.969274.3.579.2. 462 Unknown [id number] 2.16.840.1.479109.3.579.2. 462 Unknown [id number] 2.16.840.1.452471.3.579.2. 462 Unknown [id number] 2.16.840.1.711675.3.579.2. 462 Unknown [id number] 2.16.840.1.550206.3.579.2. 462 Unknown [id number] 2.16.840.1.302621.3.579.2. 462 Unknown [id number] 2.16.840.1.527818.3.579.2. 462 Unknown [id number] 2.16.840.1.586598.3.579.2. 462 Unknown [id number] 2.16840.1.734585.3.579.2. 462 Unknown [id number] 2.16.840.1.994319.3.579.2. 462 Unknown [id number] 2.16.840.1.577312.3.579.2. 462 Social History Date Type Detail Facility Start: 08-28-2019 End: 10-11-2023 Tobacco smoking status NHIS Ex-smoker [facility] Start: 02-19-1979 End: 02-19-1989 History of tobacco use Current smoker [facility] Start: 02-19-1979 End: 02-19-1989 History of tobacco use Cigarette Smoker [facility] Start: 05-03-2021 End: 07-22-2024 Alcohol intake Current drinker of alcohol (finding) [facility] Start: 11-28-2019 End: 03-06-2022 History SDOH Alcohol Frequency 2 [facility] Start: 11-28-2019 End: 03-06-2022 History SDOH Alcohol Std Drinks 1 [facility] Start: 03-31-2019 End: 03-06-2022 History SDOH Social Connections [facility] 3 [facility] Start: 03-31-2019 End: 03-06-2022 History SDOH Social Connections [facility] 4 [facility] Start: 07-28-2019 End: 03-06-2022 History SDOH Physical Activity DPW 5 [facility] Start: 03-31-2019 Education 18 [facility] Start: 08-28-2019 End: 11-10-2021 Tobacco Comment Late heavy smoker. [facility] Start: 1945 Sex Assigned At Female [facility] Start: 05-02-2021 End: 12-31-2021 Exposure to SARS-CoV-2 (event) Not sure [facility] Work Phone: Start: 12-11-2017 End: 04-05-2023 Tobacco smoking status NHIS Unknown if ever smoked [facility] Start: 08-28-2019 End: 06-22-2022 Cigarettes smoked current (pack per day) - Reported 1 [facility] Start: 08-28-2019 End: 10-11-2023 Tobacco use and exposure Smokeless tobacco non-user [facility] Start: 03-06-2022 End: 06-22-2022 Social connection and isolation panel [facility] Do you belong to any clubs or organizations such as samaritan groups, unions, fraternal or athletic groups, or school groups? Yes [facility] Are you now , , , , never or living with a partner? [facility] How often to you hav e a drink containing alcohol? Monthly or less [facility] How many standard dr inks containing alcohol do you have on a typical day? 1 or 2 [facility] How often do you hav e 6 or more drinks on 1 occasion? Never [facility] Start: 01-21-2012 How hard is it for you to pay for the very basics like food, housing, medical care, and heating Not hard at all [facility] Do you feel stress - tense, restless, nervous, or anxious, or unable to sleep at night because your mind is troubled all the time - these days [OSQ] Not at all [facility] (I/We) worried eileen er (my/our) food would run out before (I/we) got money to buy more. Never true [facility] In the past 12 month s, was there a time when you were not able to pay the mortgage or rent on time? No [facility] Start: 03-04-2019 Gender identity Identifies as female gender (finding) [facility] Start: 03-04-2019 Sexual orientation Heterosexual (finding) [facility] Do you feel stress - tense, restless, nervous, or anxious, or unable to sleep at night because your mind is troubled all the time - these days [OSQ] To some extent [facility] How hard is it for y ou to pay for the very basics like food, housing, medical care, and heating Not very hard [facility] Start: 2024 Sex Female (finding) [facility] Medical Equipment Procedure Code Equipment Code Equipment Origin al Text Equipment Identifier Dates Navitor With Radiopaque Markers, 25mm - [id number] Start: 05-02-2024 Goals Date Patient Goal [...] Assessment Result Facility 08-27-2024 Functional status Ambulates [facility] Work Phone: 08-23-2024 Functional status Up ad rupal [facility] Work Phone: 05-03-2024 Are you deaf, or do you have serious difficulty hearing No 05/03/2024 11:03 AM Doreen Kohler, PAULA No [facility] 05-03-2024 Are you blind, or do you have serious difficulty seeing, even when wearing glasses No 05/03/2024 11:03 AM Doreen Kohler, PAULA No [facility] 05-03-2024 Do you have serious difficulty walking or climbing stairs No 05/03/2024 11:03 AM Doreen Kohler, PAULA No [facility] 05-03-2024 Do you have difficul ty dressing or bathing No 05/03/2024 11:03 AM Doreen Kohler, PAULA No [facility] 05-03-2024 Because of a physica l, mental, or emotional condition, do you have difficulty doing errands alone such as visiting a physician's office or shopping No 05/03/2024 11:03 AM Doreen Kohler, PAULA No [facility] 03-24-2024 Are you deaf, or do you have serious difficulty hearing No 03/24/2024 3:46 PM Karl Browne RN No [facility] 03-24-2024 Are you blind, or do you have serious difficulty seeing, even when wearing glasses No 03/24/2024 3:46 PM Karl Browne RN No [facility] 03-24-2024 Do you have serious difficulty walking or climbing stairs No 03/24/2024 3:46 PM Karl Browne RN No [facility] 03-24-2024 Do you have difficul ty dressing or bathing No 03/24/2024 3:46 PM Karl Browne RN No [facility] 03-24-2024 Because of a physica l, mental, or emotional condition, do you have difficulty doing errands alone such as visiting a physician's office or shopping No 03/24/2024 3:46 PM Karl Browne RN No [facility] 04-30-2023 Functional status Ambulates;Bedr est;Bathro om [facility] Work Phone: 04-16-2023 Functional status Ambulates [facility] Work Phone: 04-05-2023 Functional status Ambulates;Bath room [facility] Work Phone: 03-27-2023 Functional status Up ad rupal [facility] Work Phone: Mental Status Date Assessment Result Facility 08-27-2024 Cognitive function Voice/Name [facility] Work Phone: 08-23-2024 Cognitive function Voice/Name [facility] Work Phone: 05-03-2024 Because of a physica l, mental, or emotional condition, do you have serious difficulty concentrating, remembering, or making decisions No 05/03/2024 11:03 AM Doreen Kohler, PAULA No [facility] 03-24-2024 Because of a physica l, mental, or emotional condition, do you have serious difficulty concentrating, remembering, or making decisions No 03/24/2024 3:46 PM Karl Browne RN No [facility] 04-30-2023 Cognitive function Voice/Name [facility] Work Phone: 04-24-2023 Cognitive function Appropriate [facility] Work Phone: 04-16-2023 Cognitive function Voice/Name;Touch/Shaki ng [facility] Work Phone: 04-05-2023 Cognitive function Voice/Name [facility] Work Phone: 03-31-2023 Cognitive function Level Of Cons ciousness Awake;Alert;Appropriate;Fol lows Commands [facility] Work Phone: 03-27-2023 Cognitive function Appropriate;Cooperativ e [facility] Work Phone: 03-26-2023 Cognitive function Voice/Name [facility] Work Phone: Clinical Notes 03-08-2018 to 10-16-2024 Telephone Encounter - Savita Vann LPN - 10/16/2024 2:28 PM EDTTelephone Encounter - Savita Vann LPN - 10/16/2024 2:28 PM EDT Note Date & Type Note Facility 10-16-2024 Telephone encounter Note Form atting of this note might be different from the original. Meseret from [facility] returned call and went over notes below from Jimbo Swanson WHISKEY FILTERER with understanding. [facility] 10-16-2024 Miscellaneous Notes Formattin g of this note might be different from the original. Meseret from [facility] returned call and went over notes below from Jimbo Swanson WHISKEY FILTERER with understanding. Yes, please let home health care know Meseret from [facility] calling patient is discharging from SNF today to home. Received orders for assisted, PT/OT, patient has fracture left radius, had shingles. Asking if PCP would follow patient and sign orders? Can leave message secure voicemail. Please advise documented in this encounter [facility] 10-16-2024 Telephone encounter Note Form atting of this note might be different from the original. Yes, please let home health care know [facility] 10-16-2024 Telephone encounter Note Form atting of this note might be different from the original. Meseret ta [facility] calling patient is discharging from SNF today to home. Received orders for assisted, PT/OT, patient has fracture left radius, had shingles. Asking if PCP would follow patient and sign orders? Can leave message secure voicemail. Please advise [facility] 08-27-2024 Discharge summary Note Date/Time August 27, 2024 12:09pm [facility] Medical Records Department [address] [place] [address] Transfer to [facility] MR#: [id number] Acct: [id number] Name: HAYDEE BUSTAMANTE Rep #:[id number] : 1945 79 From: Jasmyn Chan DO PCP: Dr. Claudine Durán MD Status:[facility] Certification of patient admission REQUIRED AT TIME OF ADMISSION. I CERTIFY THAT POST-HOSPITAL ECF SERVICES ARE REQUIRED TO BE GIVEN ON AN IN-PATIENT BASIS BECAUSE OF THE ABOVE NAMED PATIENT'S NEED FOR CUSTODIAL CARE ON A CONTINUING BASIS FOR THE CONDITION(S) FOR WHICH HE/SHE WAS RECEIVING IN-PATIENT HOSPITAL SERVICES PRIOR TO HIS/HER TRANSFER TO THE [facility]. 08/27/24 1209<Electronically signed by Jasmyn Chan DO> [...] Instructions .ROUTE .COMPLEX Rx Instructions: 6mg orally Sun/Sun/Sun/Sun/sat, 5 mg orally / metoprolol succinate 25 mg tablet extended release 24 hr 25 mg PO QDAY Qty: 30 11RF Discontinued omega 5-yqn-fhn-fish oil [Fish Oil] 1,200 (144-216) mg capsule 1 cap PO DAILY Patient Comments: ON HOLD FOR COLONOSCOPY Referrals / Follow Up: Claudine Durán MD [Primary Care Provider] - Burak Amanda MD [Med Staff - Active Staff] - See Referral Note (in one week-call to schedule appointment) Disposition Disposition (needs filled in before D/C Order can be placed): Nursing Home Facility 08/27/24 1209 <Electronically signed by Jasmyn Chan DO> Cosigner Signature (if applicable): CC: Dr. Claudine Durán MD; Dr. Erasmo House MD; Dr. Burak Amanda MD ~ [facility] Work Phone: 1(409) 838-941507-09-2025 Hospital Discharge instructionsAdditional Instructions PT/INR daily times 3 days starting 08/28/24, maintain INR 2-3 [facility]: [facility]: 1(971) 567-147807-09-2025 Discharge summary [facility] Medical Records Department [address] [place] [address] Transfer to [facility] MR#: [id number] Acct: [id number] Name: HAYDEE BUSTAMANTE Rep #:[id number] : 1945 79 From: Jasmyn Chan DO PCP: Dr. Claudine Durán MD Status:[facility] Certification of patient admission REQUIRED AT TIME OF ADMISSION. I CERTIFY THAT POST-HOSPITAL F SERVICES ARE REQUIRED TO BE GIVEN ON AN IN-PATIENT BASIS BECAUSE OF THE ABOVE NAMED PATIENT'S NEED FOR CUSTODIAL CARE ON A CONTINUING BASIS FOR THE CONDITION(S) FOR WHICH HE/SHE WAS RECEIVING IN-PATIENT HOSPITAL SERVICES PRIOR TO HIS/HER TRANSFER TO THE [facility]. 08/27/24 1209 Diet Diet Order/Speech Therapy: INPATIENT [...] PO QDAY Qty: 30 11RF Discontinued omega 0-ywi-ckd-fish oil [Fish Oil] 1,200 (144-216) mg capsule 1 cap PO DAILY Patient Comments: ON HOLD FOR COLONOSCOPY Referrals / Follow Up: Claudine Durán MD [Primary Care Provider] - Burak Amanda MD [Med Staff - Active Staff] - See Referral Note (in one week- call to schedule appointment) Disposition Disposition (needs filled in before D/C Order can be placed): Nursing Home Facility 08/27/24 1209 Cosigner Signature (if applicable): CC: Dr. Claudine Durán MD; Dr. Erasmo House MD; Dr. Burak Amanda MD ~ [facility]07-09-2025 [facility] Medical Records Department [address] [place] [address] Discharge Summary 08/27/24 1209 MR#: [id number] Acct: [id number] Name: HAYDEE BUSTAMANTE Rep #: [id number] : 1945 79 From: Jasmyn Chan DO PCP: Dr. Claudine Durán MD Status:DIS ADAIR Location: [place] [address] Providers Date of Admission: 08/23/24 Date of [...] 1 tab PO DAILY supplement 03/19/23 vitamins A,C,E-nmzy-xcypqu 2,148 mcg-113 mg-45 mg-17.4 mg tablet (PreserVision [...] was seen in the emergency room at [facility] for evaluation of injuries sustained when she [...] to get out of them or an regional administrative assistant. Patient finally used the telephone after she scooted herself around on the floor and called the squad to bring her in the hospital. Labs obtain urgency room included a CBC which was remarkable for hemoglobin of 11.3, INR was 1.2, chemistry profile was abnormal for BUN of 22. W (more content not included)...[facility] 08-26-2024 Progress note Author Jasmyn [facility] Note Date/Time August 26, 2024 4:55p m [facility] Medical Records Department [address] [place] [address] Progress Note - Hospitalist 08/26/24 1654 MR#: [id number] Acct: [id number] Name: HAYDEE BUSTAMANTE Rep #:[id number] : 1945 79 From: Jasmyn Chan DO PCP: Dr. Claudine Durán MD Status:[facility] Location: [facility] [id number] Reason for Visit Reason for Visit: Diagnoses Other malaise (08/23/24) Unspecified injury of head, initial encounter (08/23/24) Unspecified fracture of the lower end of left radius, initial encounter for closed fracture (08/23/24) Subjective Subjective Patient was seen and examined today, I removed her from telemetry-she did not appear to be tachycardic. We are currently awaiting approval for her to go to [facility] for short-term skilled services. Objective Data Objective [...] / 240 240 / 240 Output Total 0 / 2049 1350 / 1350 1000 / [...] 35 minutes Charges/Coding Visit Charges Inpatient E&M: 32079 Subs Hosp L2 08/26/24 1655 <Electronically signed by Jasmyn Chan DO> Cosigner Signature (if applicable): CC: ~ Signed [facility] Work Phone: 1(529) 457-401807-08-2025 Progress note [facility] Medical Records Department [address] [place] [address] Progress Note - Hospitalist 08/26/24 1654 MR#: [id number] Acct: [id number] Name: HAYDEE BUSTAMANTE Rep #:[id number] : 1945 79 From: Jasmyn Chan DO PCP: Dr. Claudine Durán MD Status:AD [facility] Location: [place] [address] Reason for Visit Reason for Visit: Diagnoses Other malaise (08/23/24) Unspecified injury of head, initial encounter (08/23/24) Unspecified fracture of the lower end of left radius, initial encounter for closed fracture (08/23/24) Subjective Subjective Patient was seen and examined today, I removed her from telemetry-she did not appear to be tachycardic. We are currently awaiting approval for her to go to [facility] for [facility]-term skilled services. Objective Data Objective [...] 35 minutes Charges/Coding Visit Charges Inpatient E&M: 71742 Subs Hosp L2 08/26/24 0955 Cosigner Signature (if applicable): CC: ~ Signed [facility]07-07-2025 Progress note Author Jasmyn Chan [facility] Note Date/Time August 25, 2024 6:26p m [facility] Medical Records Department [address] [place] [address] Progress Note - Hospitalist 08/25/249 MR#: [id number] Acct: [id number] Name: HAYDEE BUSTAMANTE Rep #:[id number] : 1945 79 From: Jasmyn Chan DO PCP: Dr. Claudine Durán MD Status:AD M [facility] Location: [facility] BT672-2 Reason for Visit Reason for Visit: Diagnoses [...] 1450 440 / 440 Output Total 2049 950 / 950 Balance 1450 / [...] 35 minutes Charges/Coding Visit Charges Inpatient E&M: 89258 Subs Hosp L2 08/25/24 1826 <Electronically signed by Jasmyn Chan DO> Cosigner Signature (if applicable): CC: ~ Signed [facility] Work Phone: 1(804) 775-490207-07-2025 Progress note [facility] Medical Records Department [address] [place] [address] Progress Note - Hospitalist 08/25/24 181 MR#: [id number] Acct: [id number] Name: HAYDEE BUSTAMANTE Rep #:[id number] : 1945 79 From: Jasmyn Chan DO PCP: Dr. Claudine Durán MD Status:AD M ADAIR Location: [place] [address] Reason for Visit Reason for Visit: Diagnoses [...] 1450 440 / 440 Output Total 2049 950 / 950 Balance 1450 / [...] 35 minutes Charges/Coding Visit Charges Inpatient E&M: 03925 Subs Hosp L2 08/25/24 1826 Cosigner Signature (if applicable): CC: ~ Signed [facility]07-06-2025 Progress note Author Erasmo House [facility] Note Date/Time August 24, 2024 1:25p m [facility] Medical Records Department [address] [place] [address] Progress Note - Hospitalist 08/24/24 0849 MR#: [id number] Acct: [id number] Name: ROBBYHAYDEE DIONTE Rep #:[id number] : 1945 79 From: Erasmo Castañeda PCP: Dr. Claudine Durán MD Status:[facility] Location: [place] NI383-9 Reason for Visit Reason for Visit: Diagnoses [...] (Auto) 69.1, Lymph % (Auto) 15.8 L, [place] % (Auto) 12.6 H, Eos % (Auto) [...] the wrist. Follow-up in 2 weeks in [facility]. 2. Closed head injury without concussion [...] shock if needed Total time spent in lirw-xe-iflk encounter in discussion of advanced directive 17 minutes. Laboratory Results 08/23/24 07:45: WBC 7.9, RBC 3.52 L, Hgb 11.3 L, Hct 33.9 L, MCV 96.3, MCH 32.1 H, MCHC 33.3, RDW Std Deviation 58.6 H, RDW Coeff of Catarino 17.0 H, Plt Count 182, MPV 10.9, Immature Gran % (Auto) 0.500, Neut % (Auto) 82.3 H, Lymph % (Auto) 8.1L, [place] % (Auto) 8.6, Eos % (Auto) 0.1, [...] (Auto) 69.1, Lymph % (Auto) 15.8 L, [place] % (Auto) 12.6 H, Eos % (Auto) [...] distal radius with intra-articular extension. Reading Location: [facility] Brain CT 08/23/24 08:06 IMPRESSION: 1. Generalized brain atrophy. 2. Small vessel ischemic/degenerative changes. 3. No acute intracranial hemorrhage, midline shift or mass effect. If symptoms persist, further evaluation with MRI is recommended. Reading Location: [facility] Charges/Coding Visit Charges Inpatient E&M: 43524 Subs Hosp L2 08/24/24 1325 <Electronically signed by Erasmo House MD> Cosigner Signature (if applicable): CC: ~ Signed [facility] Work Phone: 1(170) 980-298807-06-2025 Progress note [facility] Medical Records Department [address] [place] [address] Progress Note - Hospitalist 08/24/24 0849 MR#: [id number] Acct: [id number] Name: HAYDEE BUSTAMANTE Rep #:[id number] : 1945 79 From: Erasmo Castañeda PCP: Dr. Claudine Durán MD Status:AD M [facility] Location: [place] [address] Reason for Visit Reason for Visit: Diagnoses [...] (Auto) 69.1, Lymph % (Auto) 15.8 L, [place] % (Auto) 12.6 H, Eos % (Auto) [...] radius/Colles' fracture: [facility] ofx-ray left wrist x-ray [...] the wrist. Follow-up in 2 weeks in [facility]. 2. Closed head injury without concussion from fall: Patient denies LOC. CT brain reviewed does not show acute intracranial abnormality. Generalized brain atrophy. 7/6 superficial bruises healing. 3. Severe aortic stenosis [...] shock if needed Total time spent in odjh-er-hsza encounter in discussion of advanced directive 17 minutes. Laboratory Results 08/23/24 07:45: WBC 7.9, RBC 3.52 L, Hgb 11.3 L, Hct 33.9 L, MCV 96.3, MCH 32.1 H, MCHC 33.3, RDW Std Deviation 58.6 H, RDW Coeff of Catarino 17.0 H, Plt Count 182, MPV 10.9, Immature Gran % (Auto) 0.500,Neut % (Auto) 82.3 H, Lymph % (Auto) 8.1L, [place] % (Auto) 8.6, Eos % (Auto) 0.1, Baso % (Auto) 0.4, Absolute Neuts (auto)6.5, Absolute Lymphs (auto) 0.64 L, Nucleated RBC % 0, PT 15.5 H, INR 1.2, Sodium 140, Potassium 3.9, Chloride 104, Carbon Dioxide 22.1, Anion Gap 14, BUN 22 H, Creatinine 0.63 L, Estim Creat Clear Calc 48.72 L, Est GFR (MDRD) Non-Af 91, BUN/Creatinine Ratio 34.8 H, Adnprpc685 H, Calcium 9.2, Total Creatine Kinase 128 [...] (Auto) 69.1, Lymph % (Auto) 15.8 L, [place] % (Auto) 12.6 H, Eos % (Auto) 1.5, Baso % (Auto) 0.6, Absolute Neuts (auto) 3.7, Absolute Lymphs (auto) 0.85, Nucleated RBC % 0, PT 16.3 H, INR 1.3, Lkparp704, Potassium 3.9, Chloride 105, Carbon Dioxide 21.9, Anion Gap 13, BUN 15, Creatinine 0.65 L, Estim Creat Clear Calc 48.72 L, Est GFR (MDRD) Non-Af 91, BUN/Creatinine Ratio 22.5 H, Glucose 90, Calcium 9.0 Clinical Impression(s) from Imaging Studies Wrist X-Ray 08/23/24 07:31 IMPRESSION: Comminuted impacted fracture of the distal radius with intra-articular extension. Reading Location: [facility] Brain CT 08/23/24 08:06 IMPRESSION: 1. Generalized brain atrophy. 2. Small vessel ischemic/degenerative changes. 3. No acute intracranial hemorrhage, midline shift or mass effect. If symptoms persist, further evaluation with MRI is recommended. Reading Location: [facility] Charges/Coding Visit Charges Inpatient E&M: 55696 Subs Hosp L2 08/24/24 1325 Cosigner Signature (if applicable): CC: ~ Signed [facility]07-05-2025 Consult note Author Burak Amanda [facility] Note Date/Time August 23, 2024 2:01p m [facility] Medical Records Department [address] [place] [address] Consultation - Orthopedics 08/23/24 1354 MR#: [id number] Acct: [id number] Name: HAYDEE BUSTAMANTE Rep #:[id number] : 1945 79 From: Burak Castañeda PCP: Dr. Claudine Durán MD Status:AD M [facility] Location: [place] GR064-0 HPI Consult Data Date of Consult: 08/23/24 [...] she was admittedfor placement and likely rehabilitation. [facility] Medical History Hypertension GERD (gastroesophageal reflux disease) [...] suppl ement 03/19/23 10/01/23 History tablet) vitamins A,C,I-kqzx-ffkumy 2,148 2 tab PO BID eye heal [...] Rx (Voltaren Arthritis Pain) #100 grams omega 9-ytz-zfv-fish oil 1,200 mg 1 cap PO DAILY [...] (Auto) 82.3 H, Lymph % (Auto) 8.1L, [place] % (Auto) 8.6, Eos % (Auto) 0.1, [...] distal radius with intra-articular extension. Reading Location: [facility] Independent review of the films shows comminuted distal radius fracture with impaction and slight loss of radial height and inclination however, patient already has Luno?radial khdd-up-wdnb osteoarthritis with subchondral sclerosis additionally there is scapholunate widening appreciated. Brain CT 08/23/24 08:06 IMPRESSION: 1. Generalized brain atrophy. 2. Small vessel ischemic/degenerative changes. 3. No acute intracranial hemorrhage, midline shift or mass effect. If symptoms persist, further evaluation with MRI is recommended. Reading Location: [facility] Assessment & Plan Assessment/Plan (1) Closed fracture [...] and direct care in that manner. [facility] Office: 08/23/24 1401 <Electronically signed by Burak Amanda MD> Cosigner Signature (if applicable): CC: Dr. Claudine Durán MD~ Signed [facility] Work Phone: 1(904) 920-280207-05-2025 Consult note [facility] Medical Records Department [address] [place] [address] Consultation - Orthopedics 08/23/24 1354 MR#: [id number] Acct: [id number] Name: HAYDEE BUSTAMANTE Rep #:[id number] : 1945 79 From: Burak Castañeda PCP: Dr. Claudine Durán MD Status:AD [facility] Location: [place] AY280-3 HPI Consult Data Date of Consult: 08/23/24 [...] was admittedfor placement and likely re habilitation. [facility] Medical History Hypertension GERD (gastroesophageal reflux disease) [...] suppl ement 03/19/23 10/01/23 History tablet) vitamins A,C,A-qhxy-dhvbip 2,148 2 tab PO BID eye heal [...] Rx (Voltaren Arthritis Pain) #100 grams omega 9-vqm-tfa-fish oil 1,200 mg 1 cap PO DAILY [...] (Auto) 82.3 H, Lymph % (Auto) 8.1L, [place] % (Auto) 8.6, Eos % (Auto) 0.1, [...] distal radius with intra-articular extension. Reading Location: [facility] Independent review of the films shows comminuted distal radius fracture with impaction and slight loss of radial height and inclination however, patient already has Luno?radial kxme-qi-wxoc osteoarthritis with subchondral sclerosis additionally there is scapholunate widening appreciated. Brain CT 08/23/24 08:06 IMPRESSION: 1. Generalized brain atrophy. 2. Small vessel ischemic/degenerative changes. 3. No acute intracranial hemorrhage, midline shift or mass effect. If symptoms persist, further evaluation with MRI is recommended. Reading Location: [facility] Assessment & Plan Assessment/Plan (1) Closed fracture [...] x-rays and direct carein that manner. [facility] Office: 08/23/24 1400 Cosigner Signature (if applicable): CC: Dr. Claudine Durán MD~ Signed [facility]07-05-2025 History and physical note Author Erasmo House [facility] Note Date/Time August 23, 2024 11:12 am [facility] Medical Records Department [address] [place] [address] H&P Exam - Hospitalist 08/23/24 1023 MR#: [id number] Acct: [id number] Name: HAYDEE BUSTAMANTE Rep #:[id number] : 1945 79 From: Erasmo Castañeda PCP: Dr. Claudine Durán MD Status:[facility]RERO Location: [facility] IH295-9 HPI - General General Date of Admission: [...] x-ray done in the ED were reviewed. [facility] Medical History Hypertension GERD (gastroesophageal reflux disease) [...] suppl ement 03/19/23 10/01/23 History tablet) vitamins A,C,T-iujl-xeomel 2,148 2 tab PO BID eye heal [...] Rx (Voltaren Arthritis Pain) #100 grams omega 3-tfm-pby-fish oil 1,200 mg 1 cap PO DAILY [...] (Auto) 82.3 H, Lymph % (Auto) 8.1L, [place] % (Auto) 8.6, Eos % (Auto) 0.1, [...] distal radius with intra-articular extension. Reading Location: [facility] Brain CT 08/23/24 08:06 IMPRESSION: 1. Generalized brain atrophy. 2. Small vessel ischemic/degenerative changes. 3. No acute intracranial hemorrhage, midline shift or mass effect. If symptoms persist, further evaluation with MRI is recommended. Reading Location: [facility] Assessment & Plan Assessment/Plan (1) Closed fracture [...] shock if needed Total time spent in vvdj-aa-cpmt encounter in discussion of advanced directive 17 minutes. Laboratory Results 08/23/24 07:45: WBC 7.9, RBC 3.52 L, Hgb 11.3 L, Hct 33.9 L, MCV 96.3, MCH 32.1 H, MCHC 33.3, RDW Std Deviation 58.6 H, RDW Coeff of Catarino 17.0 H, Plt Count 182, MPV 10.9, Immature Gran % (Auto) 0.500, Neut % (Auto) 82.3 H, Lymph % (Auto) 8.1L, [place] % (Auto) 8.6, Eos % (Auto) 0.1, [...] distal radius with intra-articular extension. Reading Location: [facility] Brain CT 08/23/24 08:06 IMPRESSION: 1. Generalized brain atrophy. 2. Small vessel ischemic/degenerative changes. 3. No acute intracranial hemorrhage, midline shift or mass effect. If symptoms persist, further evaluation with MRI is recommended. Reading Location: [facility] Charges/Coding Visit Charges Inpatient E&M: 21338 Init Hosp L3 Procedures Hospitalists Procedures: 36699 Advncd Care Plan 30 Min 08/23/24 1112 <Electronically signed by Erasmo House MD> Cosigner Signature (if applicable): CC: Dr. Claudine Durán MD; Dr. Erasmo House MD~ Signed [facility] Work Phone: 1(314) 212-333007-05-2025 Discharge summary Author Ron Mariscal [facility] Note Date/Time August 23, 2024 10:29 am [facility] Medical Records Department [address] [place] [address] Emergency Department Summary 08/23/24 MR#: [id number] Acct: [id number] Name: HAYDEE BUSTAMANTE Rep #:[id number] : 1945 79 From: Ron Mariscal MD [...] at any point in time or syncope. Eqhob-hfiu-ydyvxuse. Lives by herself. 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 She states this morning she laid [...] to if her wrist was not injured [facility] Medical History Hypertension GERD (gastroesophageal reflux disease) [...] suppl ement 03/19/23 10/01/23 History tablet) vitamins A,C,Z-ntuk-azszhb 2,148 2 tab PO BID eye heal th 03/19/23 10/01/23 History mcg-113 mg-45 mg-17.4 mg tablet (PreserVision AREDS) gabapentin 300 mg capsule 300 mg PO Q12 nerve pain #0 caps 04/05/23 10/01/23 Rx potassium chloride 20 mEq 20 meq PO BIDCM #0 tabs /10/1210/01/23 Rx tablet,extended release(part/cryst) fluticasone propionate 50 1 [...] tabs Instructions: ON HOLD FOR COLONOSCOPY omega 0-maa-vpx-fish oil 1,200 mg 1 cap PO DAILY [...] motor deficits and no sensory deficits noted [place] Coma Scale: document GCS findings Spontaneous Obeys [...] 82.3 H Lymph % (Auto) 8.1 L [place] % (Auto) 8.6 Eos % (Auto) 0.1 [...] distal radius with intra-articular extension. Reading Location: [facility] Brain CT 08/23/24 08:06 IMPRESSION: 1. Generalized brain atrophy. 2. Small vessel ischemic/degenerative changes. 3. No acute intracranial hemorrhage, midline shift or mass effect. If symptoms persist, further evaluation with MRI is recommended. Reading Location: [facility] Management Discussion w/another healthcare provider: Hospitalist and Rn Hedis (ezekiel amanda) Procedures Upper Extremity Splints Upper [...] functional status Disposition Disposition: Acute Care Hospital [facility] What to do if you have Problems For any increased pain, shortness of breath, bleeding, nausea or vomiting, chestpain, or any unexpected problems, contact your Primary Care Provider. Call [facility] ([phone]) or report to the closest Emergency Room. Call 911 if necessary. 08/23/24 1029 <Electronically signed by Ron Mariscal MD> Cosigner Signature (if applicable): CC: Dr. Claudine Durán MD ~ Signed [facility] Work Phone: 1(830) 595-235107-05-2025 History and physical note [facility] Medical Records Department [address] [place] [address] H&P Exam - Hospitalist 08/23/24 1023 MR#: [id number] Acct: [id number] Name: HAYDEE BUSTAMANTE Rep #:[id number] : 1945 79 From: Erasmo Castañeda PCP: Dr. Claudine Durán MD Status:[facility] Location: [facility] BH306-1 HPI - General General Date of Admission: [...] x-ray done in the ED were reviewed. [facility] Medical History Hypertension GERD (gastroesophageal reflux disease) [...] suppl ement 03/19/23 10/01/23 History tablet) vitamins A,C,G-avty-gwcgji 2,148 2 tab PO BID eye heal th 03/19/23 10/01/23 History mcg-113 mg-45 mg-17.4 mg tablet (PreserVision AREDS) gabapentin 300 mg capsule 300 mg PO Q12 nerve pain #0 caps 04/05/23 10/01/23 Rx potassium chloride 20 mEq 20 meq PO BIDCM #0 tabs 03/10/1210/01/23 Rx tablet,extended release(part/cryst) fluticasone propionate 50 1 [...] Rx (Voltaren Arthritis Pain) #100 grams omega 4-hth-hzt-fish oil 1,200 mg 1 cap PO DAILY [...] (Auto) 82.3 H, Lymph % (Auto) 8.1L, [place] % (Auto) 8.6, Eos % (Auto) 0.1, [...] distal radius with intra-articular extension. Reading Location: [facility] Brain CT 08/23/24 08:06 IMPRESSION: 1. Generalized brain atrophy. 2. Small vessel ischemic/degenerative changes. 3. No acute intracranial hemorrhage, midline shift or mass effect. If symptoms persist, further evaluation with MRI is recommended. Reading Location: [facility] Assessment & Plan Assessment/Plan (1) Closed fracture of distal end of left radius: (2) Closed head injury without concussion: PLAN: Plan This 72-year-old female was brought to ED when she fell down, mechanism unclear resulting into leftwrist fracture. 1. Acute debility of ADL due to closed fracture of distal end of left radius/Colles' fracture: Patient is being admitted on [facility] floor. 3 views ofx-ray left wrist x-ray [...] shock if needed Total time spent in antj-sv-lqco encounter in discussion of advanced directive 17 minutes. Laboratory Results 08/23/24 07:45: WBC 7.9, RBC 3.52 L, Hgb 11.3 L, Hct 33.9 L, MCV 96.3, MCH 32.1 H, MCHC 33.3, RDW Std Deviation 58.6 H, RDW Coeff of Catarino 17.0 H, Plt Count 182, MPV 10.9, Immature Gran % (Auto) 0.500,Neut % (Auto) 82.3 H, Lymph % (Auto) 8.1L, [place] % (Auto) 8.6, Eos % (Auto) 0.1, Baso % (Auto) 0.4, Absolute Neuts (auto)6.5, Absolute Lymphs (auto) 0.64 L, Nucleated RBC % 0, PT 15.5 H, INR 1.2, Sodium 140, Potassium 3.9, Chloride 104, Carbon Dioxide 22.1, Anion Gap 14, BUN 22 H, Creatinine 0.63 L, Estim Creat Clear Calc 48.72 L, Est GFR (MDRD) Non-Af 91, BUN/Creatinine Ratio 34.8 H, Colgnys903 H, Calcium 9.2, Total Creatine Kinase 128 Clinical Impression(s) from Imaging Studies Wrist X-Ray 08/23/24 07:31 IMPRESSION: Comminuted impacted fracture of the distal radius with intra-articular extension. Reading Location: [facility] Brain CT 08/23/24 08:06 IMPRESSION: 1. Generalized brain atrophy. 2. Small vessel ischemic/degenerative changes. 3. No acute intracranial hemorrhage, midline shift or mass effect. If symptoms persist, further evaluation with MRI is recommended. Reading Location: [facility] Charges/Coding Visit Charges Inpatient E&M: 47571 Init Hosp L3 Procedures Hospitalists Procedures: 27929 Advncd Care Plan 30 Min 08/23/24 1112 Cosigner Signature (if applicable): CC: Dr. Claudine Durán MD; Dr. Erasmo House MD~ Signed [facility]07-05-2025 Discharge summary [facility] Medical Records Department [address] [place] [address] Emergency Department Summary 08/23/24 MR#: [id number] Acct: [id number] Name: HAYDEE BUSTAMANTE Rep #:[id number] : 1945 79 From: Ron Mariscal MD [...] any point in time or sync ope. Oweoq-pitt-wahfykff. Lives by herself. 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 She states this morning she laid [...] to if her wrist was not injured [facility] Medical History Hypertension GERD (gastroesophageal reflux disease) [...] suppl ement 03/19/23 10/01/23 History tablet) vitamins A,C,Q-eium-usjunx 2,148 2 tab PO BID eye heal th 03/19/23 10/01/23 History mcg-113 mg-45 mg-17.4 mg tablet (PreserVision AREDS) gabapentin 300 mg capsule 300 mg PO Q12 nerve pain #0 caps 04/05/23 10/01/23 Rx potassium chloride 20 mEq 20 meq PO BIDCM #0 tabs 03/10/1210/01/23 Rx tablet,extended release(part/cryst) fluticasone propionate 50 1 [...] tabs Instructions: ON HOLD FOR COLONOSCOPY omega 4-bkq-ocd-fish oil 1,200 mg 1 cap PO DAILY [...] motor deficits and no sensory deficits noted [place] Coma Scale: document GCS findings Spontaneous Obeys [...] 82.3 H Lymph % (Auto) 8.1 L [place] % (Auto) 8.6 Eos % (Auto) 0.1 [...] distal radius with intra-articular extension. Reading Location: [facility] Brain CT 08/23/24 08:06 IMPRESSION: 1. Generalized brain atrophy. 2. Small vessel ischemic/degenerative changes. 3. No acute intracranial hemorrhage, midline shift or mass effect. If symptoms persist, further evaluation with MRI is recommended. Reading Location: [facility] Management Discussion w/another healthcare provider: Hospitalist and Rn Hedis (ezekiel amanda) Procedures Upper Extremity Splints Upper Extremity Splint: Orthoglass (AP short arm, fabricated. Neurovascularly intact distally afterplacement) Splint Fabrication: Fabricated Location: Left Discharge Plan Dx/Rx/DC Orders Clinical Impression: Closed fracture of distal end of left radius, Closed head injury without concussion, Abrasion of face, Subtherapeutic international normalized ratio (INR), Fall from slip, trip, or stumble, Decliningfunctional status Disposition Disposition: Acute Care Hospital [facility] What to do if you have Problems For any increased pain, shortness of breath, bleeding, nausea or vomiting, chestpain, or any unexpected problems, contact your Primary Care Provider. Call [facility] ([phone]) or report tothe closest Emergency Room. Call 911 if necessary. 08/23/24 1029 Cosigner Signature (if applicable): CC: Dr. Claudine Durán MD ~ Signed [facility]07-05-2025 Radiology Diagnostic study note [facility] Imaging Services [address] [place], [place] [id number] (682) Wrist min 3 Views MR#: [id number] Acct: [id number] Name: HAYDEE BUSTAMANTE Rep #: [id number] : 1945 From: Bee Herrera MD PCP: Dr. Claudine Durán MD Status: RE G ER Study:Wrist min 3 Views Date of Exam: Exam# [id number] Ordering Dr: Iain Mariscal MD EXAM: XR [...] distal radius with intra-articular extension. Reading Location: [facility] CC: Dr. Ron Mariscal MD; Dr. Claudine Durán MD ~ Food Production Supervisor: Signed [facility]07-05-2025 Radiology Diagnostic study note [facility] Imaging Services [address] [place], [place] [id number] Brain/Head without Contrast MR#: [id number] Acct: [id number] Name: HAYDEE BUSTAMANTE Rep #: [id number] : 1945 From: Bee Herrera MD PCP: Dr. Claudine Durán MD Status: RE G ER Study:Brain/Head without Contrast Date of Exa m: 08/23/24 Exam# [id number] Ordering Dr: Iain Mariscal MD EXAM: CT [...] evaluation with MRI is recommended. Reading Location: [facility] CC: Dr. Ron Mariscal MD; Dr. Claudine Durán MD ~ Food Production Supervisor: Signed [facility]07-03-2025 History of Present illness Narrative* Michael Braxton MD - 08/21/2024 12:46 PM EDT INR low with patient who missed a dose of coumadin. Continue current regimen. Recheck INR in 1 week. * Melissa Means RN - 08/21/2024 12:24 PM EDT patient had inr completed at [facility] patients inr is 1.2 (patients [...] FYI - results being sent to doc telecommunications field technician due to pcp and team members are [...] to the missed dose [facility] Telephone encounter Note * Telephone Encounter - [...] Cintron LPN August 18, 2024 2:11 PM [facility]06-[facility] Miscellaneous Notes* Telephone Encounter - Geni Cintron [...] 18, 2024 2:11 PM documented in this encounterOhio [facility]06-18-2025 History of Present illness Narrative* Melissa Means RN - 08/06/2024 4:32 PM EDT pcp agrees with information * Melissa Means RN - 08/06/2024 12:18 PM EDT patient had inr completed at [facility] patients inr is 1.4 (patients inr [...] not agree with recommendation documented in this encounterOhio [facility]06-10-2025 History of Present illness Narrative* Jane Rick [...] 29, 2024 10:11 AM documented in this encounterOhio [facility]06-03-2025 Instructions* Patient Instructions* Brissa Chester APRN.TREE DOCTOR - 07/22/2024 2:32 PM EDT We discussed [...] You can follow up with a local custom wood stair builder in [place] for your annual echocardiogram and routinecare. If you prefer, you can also follow up at another [facility] facility or return here foryour valve care. - as long as ECHO looks good today, you can follow-up with repeat ECHO in 1 years time - If you experience new or worsening symptoms, such as shortness of breath, chest pain, or leg swelling, please contact your custom wood stair builder or our office immediately. Next steps: - Attend your echocardiogram appointment today as scheduled. - I will contact you via kajeethart with your echocardiogram and lab results once they are available. - Ensure you have a follow-up plan with a custom wood stair builder for your annual echocardiogram and routine care. Please let us know if you have any questions or concerns. Dr Saeed O: [phone] F: [phone] It was my pleasure to participate in the management of your care! Brissa Chester, MSN, GATE CLERK-TREE DOCTOR documented in this encounterOhio State East Hospital06-03-2025 History of Present illness Narrative* Brissa Chester APRN.CNP - 07/22/2024 1:30 PM EDT Images from the original note were not included. [facility] Department of Cardiovascular Medicine SECTION OF INTERVENTIONAL CARDIOLOGY OUTPATIENT VISIT DATE July 22, 2024 OUTPATIENT VISIT TYPE ESTABLISHED FOLLOW UP Primary Demolition Specialist: Juvencio Saeed MD Chief Complaint: Patient here [...] successful TF TAVR via 14 Fr R UTILITY WORKER [employer] [place] with a 25 mm Navitor at nominal [...] the initiation of metoprolol succinate by a custom wood stair builder at [facility] a few days ago. She also reports occasional elevated blood pressure readings during rehab sessions. She denies chest pain, shortness of breath, dyspnea on exertion, orthopnea, PND, palpitations, lightheadedness, syncope, claudication, leg swelling, cough, and wheezing PAST CARDIAC HISTORY: See HPI PAST MEDICAL HISTORY Diagnosis Date Anemia Bone marrow involvement with histoplasmosis Aortic stenosis COPD (chronic obstructive pulmonary disease) ([facility]) Disseminated histoplasmosis Colitis, immunosuppression, 01/2018. Diverticulosis of colon (without mention of hemorrhage) Diverticulosis DVT, recurrent, lower extremity, acute ([facility]) 12/10/2014 GERD (gastroesophageal reflux disease) Hiatal hernia 02/25/2018 Hypertension Lung nodule Macular degeneration Mitral stenosis Rheumatoid arthritis involving multiple sites with positive rheumatoid factor ([facility]) 03/07/2015 Dr. Hurley ([facility]) Tricuspid regurgitation PAST SURGICAL HISTORY Procedure Laterality [...] 12/28/2006 LUMBAR SPINE FUSN,POST INTERBODY 2011 Dr. Aramndo at [facility]. Diskectomy and laminectomy PAST SURGICAL HISTORY [...] FOLIC ACID ORAL Take by mouth. vit A,C,N-Sjog-Uyrapp (OCUVITE PRESERVISION) 2,148 mcg-113 mg-45 mg-17.4mg tab [...] 140/65 Pulse 75 Resp 18 Ht 5' 2 (1.58m) Wt 129 lb 6.4 oz (58.7kg) [...] and lab results; will communicate findings via Nezasat. - Recommended annual echocardiogram follow-up; patient may choose to follow up locally or at [facility]. 2. Nonrheumatic mitral valve stenosis (I34.2) [...] rehab sessions. Initiated on Metoprolol Succinate by custom wood stair builder at [facility]. - Continue Metoprolol Succinate as prescribed. - Monitor BP regularly. 5. 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 6. History of recurrent deep vein [...] You can follow up with a local custom wood stair builder in [place] for your annual echocardiogram and routinecare. If you prefer, you can also follow up at another [facility] or return here forur valve care. - as long as ECHO looks good today, you can follow-up with repeat ECHO in 1 years time - If you experience new or worsening symptoms, such as shortness of breath, chest pain, or leg swelling, please contact your custom wood stair builder or our office immediately. Next steps: - Attend your echocardiogram appointment today as scheduled. - I will contact you via CitySourced with your echocardiogram and lab results once they are available. - Ensure you have a follow-up plan with a custom wood stair builder for your annual echocardiogram and routine care. [...] 4lbs from your dry weight, call your custom wood stair builder Exercise: Be active and exercise every day. Smoking and alcohol abstinence/cessation, if applicable Please Visit [email or web address] Questions or Concerns after you go home? Please call Nurse operational risk manager line at . I spent a total of >45 minutes on the date of the service which included preparing to see the patient, ybgh-jv-kece patient care, completing clinical documentation, obtaining and/or reviewing separately obtained history, performing a medically appropriate examination, counseling and educating the patient/family/caregiver, ordering medications, tests, or procedures, independently interpreting results (not separately reported), communicating results to the patient/family/caregiver, and care coordination (not separately reported). Brissa Chester, MSN, GATE CLERK-TREE DOCTOR documented in this encounterOhio State [facility] Hospital06-02-2025 History of Present illness Narrative* Twyla Cuevas APRN.CNP - 07/21/2024 11:01 AM EDT Noted, agree, thank you! * Melissa Means RN - 07/21/2024 10:50 AM EDT patient had inr completed at [facility] patients inr is 1.4 (patients inr [...] not agree with recommendation documented in this encounterOhio [facility] Hospital05-19-2025 History of Present illness Narrative* Melissa Means RN - 07/07/2024 4:47 PM EDT pcp agrees with information * Melissa Means RN - 07/07/2024 11:58 AM EDT patient had inr completed at [facility] patients inr is 1.4 (patients inr [...] not agree with recommendation documented in this encounterOhio [facility]05-19-2025 Telephone encounter Note * Telephone Encounter - [...] Means RN July 07, 2024 12:02 PM [facility] Miscellaneous Notes* Telephone Encounter - Melissa Means [...] 07, 2024 12:02 PM documented in this encounterOhio State [facility] Hospital05-07-2025 History of Present illness Narrative* Pili Benitez RN - 06/25/2024 3:57 PM EDT Images from the original note were not included. CDM Care Path Telephonic Outreach Provider Action/SHAYNE N/A Patient identified by Name and Date of . Discussed care with patient. CDM Update Spoke with the pt. At this time. She has been doing very well. She said that cardiac rehab has been doing good and she enjoys it She established with a new custom wood stair builder at [place] as it was a little closer and [...] RN Incomplete Pt. Does not have a correctional manager Biannual Cardiology visit addressed 08/20/2024 05/26/2024 Pili [...] - Bi-Weekly Outreach (Recurring) Disposition Based on driller helper, the following disposition is advised: No action needed Pili Benitez RN June 25, 2024 3:57 PM documented in this encounterOhio [facility] Hospital05-02-2025 Telephone encounter Note * Telephone Encounter - Magalie Ngo LPN - 06/20/2024 3:27 PM EDT GEREMIAS 02/23/23 Patient phones requesting refills as follows: Requested Prescriptions Pending Prescriptions Disp Refills fluticasone (FLONASE) 50 mcg/actuation nasal spray 3 each 3 Sig: Use 1 spray in each nostril once daily. Please review and advise. Magalie Ngo LPN [facility]05-02-20[facility] Miscellaneous Notes* Telephone Encounter - Magalie Ngo LPN - 06/20/2024 3:27 PM EDT GEREMIAS 02/23/23 Patient phones requesting refills as follows: Requested Prescriptions Pending Prescriptions Disp Refills fluticasone (FLONASE) 50 mcg/actuation nasal spray 3 each 3 Sig: Use 1 spray in each nostril once daily. Please review and advise. Magalie Ngo LPN documented in this encounterOhio State [facility] Hospital05-02-2025 Evaluation note* Diagnosis Onset Date Resolution Status Admit Date Mitral stenosis acute June 20, 2024 10:07am Severe aortic stenosis acute 2024 10:07am Hypertension chronic June 20 10:07am [facility] Work Phone: 1(572) 737-332605-02-2025 Evaluation note* Diagnosis Onset Date Resolution Status Admit Date Mitral stenosis acute June 20, 2024 10:07am Severe aortic stenosis acute Ma 2024 10:07am Hypertension chronic June 20 10:07am Closed fracture of distal en d of left radius acute August 23, 2024 1 0:24am Closed head injury without concussion acute August 23, 2024 1 0:24am [facility] Work Phone: 1(506) 517-763805-02-2025 Evaluation note* Diagnosis Onset Date Resolution Status Admit Date Mitral stenosis acute June 20, 2024 10:07am Severe aortic stenosis acute 2024 10:07am Hypertension chronic June 20 10:07am Closed fracture of distal en d of left radius acute August 23, 2024 1 0:24am Closed head injury without concussion acute August 23, 2024 1 0:24am Declining functional status acute August 23, 2024 10:24am [facility] Work Phone: 1(937) 695-321405-02-2025 Evaluation note* Diagnosis Onset Date Resolution Status Admit Date Mitral stenosis acute June 20, 2024 10:07am Severe aortic stenosis acute Ma y 2024 10:07am Hypertension chronic June 20 10:07am Closed fracture of distal en d of left radius inactive August 23, 2024 1 0:24am Closed head injury without concussion inactive August 23, 2024 1 0:24am Declining functional status inactive August 23, 2024 10:24am [facility] Work Phone: 1(739) 487-443904-07-2025 History of Present illness Narrative* Pili Benitez RN - 05/26/2024 10:40 AM EDT Transitional Care Management (TCM) Follow-Up Note PCP Update / Actionable Items N/A N/A - No specialty updates needed Patient Source: In-Network Discharge Follow-up outreach: TCM enrolled patient Outreach Summary: TCM Update Spoke with the pt. At this time. Saw TREE DOCTOR Sunday- slight cough, still feels like she [...] 26, 2024 10:42 AM documented in this encounterOhio [facility] Hospital04-03-2025 Telephone encounter Note * Telephone Encounter - Yesenia Weinstein LPN - 05/22/2024 11:34 AM EDT Information requested by [facility] with [facility] Cardiac Rehab has been faxed as rquested [facility]04-03-[facility] Miscellaneous Notes* Telephone Encounter - Yesenia Weinstein LPN - 05/22/2024 11:34 AM EDT Information requested by [facility] with [facility] Cardiac Rehab has been faxed as rquested * Telephone Encounter - Lulu Quigley RN - 05/21/2024 11:00 AM EDT [facility] with [facility] Cardiac Rehab calls to report that [...] physician. Phone number for further questions is [phone]. Lulu Quigley RN documented in this encounterOhio State [facility] Hospital04-02-2025 Telephone encounter Note * Telephone Encounter - Lulu Quigley RN - 05/21/2024 11:00 AM EDT [facility] with [facility] Cardiac Rehab calls to report that [...] physician. Phone number for further questions is [phone]. Lulu Quigley RN [facility]04-01-[facility] History of Present illness Narrative* Jimbo Swanson APRN.CNS - 05/20/2024 2:13 PM EDT Continue current dosing and recheck INR 2 weeks, advised of this at visit today. * Melissa Means RN - 05/20/2024 12:53 PM EDT patient had inr completed at [facility] patients inr is 1.6 (patients inr [...] is just slightly low documented in this encounterOhio [facility] Hospital04-01-2025 Instructions* Patient Instructions* Jimbo Swanson APRN.RPG PROGRAMMER - 05/20/2024 1:20 PM EDT Screening schedule [...] review all the medicines you take, even eopd-cij-zgjhszk medicines. As you get older, the way [...] have certain medical conditions. documented in this encounterOhio State [facility] Hospital04-01-2025 History of Present illness Narrative* Jimbo [...] in the medical record. Outside specialists seen: [facility] Medical/Family history review Reviewed and updated problem [...] 92 Resp 16 Ht 159.5 cm (5' 2.8) Wt 59.1 kg (130 lb 4.7 oz) BMI 23.23 kg/m Vision Screening: Follows with optometry/ophthalmology Right: 20/25 Left: 20/ 30 Both: 20/25 Assessment/Plan Medicare annual wellness visit, subsequent (Z00.00) - Counseled on healthy diet and regular exercise - Fall avoidance information provided - Personalized prevention plan provided Continue Coumadin dose unchanged check INR and 2 weeks. She will schedule cardiac rehab at [facility]. She would like to establish with local custom wood stair builder either in [place] at [facility]. Provided with pain medication to take at bedtime as needed for pain control affecting her sleep. Discussed possible OIC. She does note need for follow-up endoscopy at ~ 1 year from previous, prefers not to see Dr. Orellana. Jimbo Swanson APRN.RPG PROGRAMMER documented in this encounterOhio State East Hospital03-31-2025 History of Present illness Narrative* Pili Benitez, [...] a little hoarse today People in her samaritan group are also sick She vacuumed her [...] so she is very involved in her samaritan right now. No new SDOH concerns were [...] 19, 2024 11:12 AM documented in this encounterOhio State East Hospital03-24-2025 History of Present illness Narrative* Pili Benitez RN - 05/12/2024 9:57 AM EDT Transitional Care Management (TCM) Follow-Up Note PCP Update / Actionable Items N/A N/A - No specialty updates needed Patient Source: In-Network Discharge Follow-up outreach: TCM enrolled patient Outreach Summary: TCM Update Feeling fine so far Went in to get her INR checked and it was too low at 1.3. She confirmed she has since spoke with her WHISKEY FILTERER about that. 1.7-2.0 range established with her doctor as her desired range for her INR. Her ATB is completed that she was discharged on. She tolerated that well with no complaints. She's been getting out and going to samaritan and her choir practices. 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 [facility]03-24-[facility] Miscellaneous Notes* Telephone Encounter - Yesenia [...] when INR > 2.0 documented in this encounterOhio State East Hospital03-21-2025 Telephone encounter Note * Telephone Encounter - Jimbo Swanson APRN.CNS - 05/09/2024 3:24 PM EDT Recommend continue with current dosing unchanged. Can check INR next week or Sunday or keep her scheduled appointment in Coumadin clinic on May 20. [facility]03-21-20[facility] Telephone encounter Note* Telephone Encounter - Yesenia Weinstein LPN - 05/09/2024 2:13 PM EDT Spoke with patient. Patient states she was released from the hospital on Sunday and she resumed her coumadin on Sunday. Her current dosing is coumadin 5 mg every day except on & Sun in which she takes 6 mg. No other finding per patient. [facility]03-21-2025 Telephone encounter Note* Telephone Encounter - Yesenia Weinstein LPN - 05/09/2024 2:07 PM EDT ----- Message from Jimbo Timmons APRN.CNS sent at 05/09/2024 1:07 PM EDT ----- Check on current dosing of check on current dosing of Coumadin and when resumed. 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 She is to stop Aspirin when INR > 2.0 [facility]03-21-[facility]25 Progress note* Result Encounter Note - Jimbo Swanson APRN.CNS - 05/09/2024 1:07 PM EDT Check on current dosing of check on current dosing of Coumadin and when resumed. 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 She is to stop Aspirin when INR > 2.0 [facility]03-17-[facility] History of Present illness Narrative* Pili Benitez RN - 05/05/2024 10:32 AM EDT Transition Care Management (TCM) Initial Outreach PCP Update / Actionable Items N/A HRTIC TCM Home Visit Referral Source of Stratification: [facility] Hospital Admission Status: Discharged Readmission Risk Score: 10% Patient's zip code: [address] Is zip code within program service area: [...] pt. And confirmed upcoming appts. Went to Demolition Specialist office this morning- everything going well since procedure Procedure went super well and she is feeling good We discussed [...] Cardiac rehab will be taking place at [facility]- She will call them to schedule She has good support from her samaritan that help her get to her appts [...] TAVR procedure Readmission Risk: 10 Value-Based Contract: Mildred DELGADO Contact: Contact made with patient: Yes Hi, my name is Pili Benitez RN and I am calling from the [facility] on behalf of your PrimaryCare Provider, [...] I will send your request to a international exchange coordinator who will contact and assist you with [...] 05, 2024 10:45 AM documented in this encounterOhio State East Hospital03-17-2025 Instructions* Patient Instructions* Adalid Clark APRN.CNP - 05/05/2024 8:34 AM EDT Follow up/Disposition: [...] 4lbs from your dry weight, call your custom wood stair builder Exercise: Be active and exercise every day. Smoking and alcohol abstinence/cessation, if applicable Heart Failure Education Booklet: information given previously. Please Visit [email or web address] documented in this encounterOhio State East Hospital03-17-2025 History of Present illness Narrative* Adalid Clark APRN.CNP - 05/05/2024 8:14 AM EDT Images from the original note were not included. [facility] Department of Cardiovascular Medicine SECTION OF INTERVENTIONAL CARDIOLOGY OUTPATIENT VISIT DATE May 05, 2024 OUTPATIENT VISIT TYPE ESTABLISHED FOLLOW UP Primary Demolition Specialist: Dr. Saeed Chief Complaint: Patient here for cardiac follow up evaluation History of Present Illness: Patient is a 78 year old female who presents for follow up visit today. 05/02/2024 s/p TF TAVR via 14 Fr R UTILITY WORKER WOOLEN MILL with a 25 mm Navitor Reports has [...] s/p TF TAVR via 14 Fr R UTILITY WORKER WOOLEN MILL with a 25 mm Navitor -Echo post trace AI, gradients 12/6mmHg HTN disseminated histoplasmosis (ongoing treatment with undetectable histo antigen 12/19) VTE s/p IVC filter (warfarin) GIB in July from duodenal ulcer s/p cautery RA (but off treatment d/t histoplasmosis) COPD ASSESSMENT/ IMPRESSION 05/02/2024 s/p TF TAVR via 14 Fr R UTILITY WORKER WOOLEN MILL with a 25 mm Navitor Reports has [...] 4lbs from your dry weight, call your custom wood stair builder Exercise: Be active and exercise every day. Smoking and alcohol abstinence/cessation, if applicable Heart Failure Education Booklet: information given previously. Please Visit [email or web address] I spent a total of >35 minutes on the date of the service which included preparing to see the patient, dvfe-mo-yufi patient care, completing clinical documentation, obtaining and/or reviewing separately obtained history, performing a medically appropriate examination, counseling and educating the patient/family/caregiver, and ordering medications, tests, or procedures. Adalid Clark APRN.CNP documented in this encounterOhio State East Hospital03-13-2025 History of Present illness Narrative* Jimbo Swanson APRN.CNS - 05/01/2024 4:08 PM EDT Noted, agree * Melissa Means RN - 05/01/2024 2:52 PM EDT patient had inr completed at [facility] patients inr is 1.1 (patients inr [...] weeks (05/20/24 - pt has appt w patrick WHISKEY FILTERER also this day) for follow up INR. documented in this encounterOhio State East Hospital03-12-2025 History of Present illness Narrative* Nara [...] Imm Admin: COVID-19 vaccine, age 12+ yr, 2022- season ([employer]) Only the first 3 history entries have been loaded, but more history exists. The patient has the following: ACTIVE PROBLEM LIST Esophageal Reflux Meralgia Paresthetica Other Voice and Resonance Disorders Arthropathy, Unspecified, Site Unspecified Elevated Liver Enzymes Mcfp Current Use of Anticoagulant Therapy Hnp (Herniated [...] Heart Failure With Preserved Ejection Fraction (Hfpef) ([facility]) PAST MEDICAL HISTORY Diagnosis Date Anemia Bone marrow involvement with histoplasmosis Aortic stenosis COPD (chronic obstructive pulmonary disease) ([facility]) Disseminated histoplasmosis Colitis, immunosuppression, 01/2018. Diverticulosis of colon (without mention of hemorrhage) Diverticulosis DVT, recurrent, lower extremity, acute ([facility]) 12/10/2014 GERD (gastroesophageal reflux disease) Hiatal hernia 02/25/2018 Hypertension Lung nodule Macular degeneration Mitral stenosis Rheumatoid arthritis involving multiple sites with positive rheumatoid factor ([facility]) 03/07/2015 Dr. Hurley ([facility] [place]) Tricuspid regurgitation PAST SURGICAL HISTORY Procedure Laterality [...] SPINE FUSN,POST INTERBODY 2011 Dr. Armando at [facility]. Diskectomy and laminectomy PAST SURGICAL HISTORY [...] (FLONASE) 50 mcg/actuation nasal spray Use 1 Stephen in each nostril once daily. vit A,C,H-Ycwx-Uurdcg (OCUVITE PRESERVISION) 2,148 mcg-113 mg-45 mg-17.4mg tab [...] tablet daily. Medication Comments documented by Steven ([facility])Muna on 03/05/2018 at 0933. 03/05/18 The medications are managed by this patient by: PATIENT Muna Steven ([facility]) [employer] [facility] for dedicated intermodal truck driver medications. ALLERGIES Allergen Reactions Penicillins Hives Objective [...] within date range. No results found for: HBA1C Recent Results (from the past 8760 hours) XR CHEST 2V FRONTAL/LAT Collection Time: 03/21/24 11:36 AM Impression IMPRESSION: See result Food Production Supervisor: KRYSTAL Transcribe Date/Time: Mar 21 2024 12:02P Dictated by : JACKELINE SCHULER MD This examination was interpreted and the report reviewed and electronically signed by: JACKELINE SCHULER MD on Mar 21 2024 12:04PM EST ECG COMPLETE Collection Time: 03/21/24 11:27 AM Impression SINUS RHYTHM WITH PREMATURE ATRIAL COMPLEXES BORDERLINE ECG Confirmed by ELIE ROTH MD ([id number]) on 03/30/2024 12:00:41 AM CTA CHEST (GATED) W IVCON Collection Time: 03/21/24 10:57 AM Impression IMPRESSION: Aortic Annulus and valve anatomy as described above Normal thoracic and abdomiinal aorta.Atherosclerotic changes as in the body of the report.Minimum luminal diameter throughout: 7 mm Food Production Supervisor: [facility] Transcribe Date/Time: Mar 21 2024 11:22A [...] and consent discussed: yes. Patient / Responsible Democrat agrees to proceed: yes Patient / Surrogate agrees to blood products: Yes Discussed the possibility of lip / dental damage: yes Instructions Given to Patient: Instructions located in the after visit summary. Patient given verbal and written preop instructions and voices comprehension and compliance. Signature: Nara Chapa MD Patient Name: Hayede Bustamante Date: April 29, 2024 Time: 5:59 PM Pager/Contact #: documented in this encounterOhio State East Hospital03-12-2025 Instructions* Patient Instructions* Monica Aguila APRN.TREE DOCTOR - 04/30/2024 1:32 PM EDT Destinee Castañeda [...] into surgery. - No make-up or nail croatian. - No jewelry, including watches, wedding rings and any body jewelry. // Questions about preparing for your procedure? Call your doctors office: Dr. Orlin Meyer [phone] Dr. Gallito Cortez [phone] Dr. Jason Olea [phone] Dr. Juvencio Saeed [phone] Interventional Discharge Readiness Tool Your Anticipated Discharge Needs: If you are discharged the same day -You must have accommodations in [place] (if you live over 2 hours away) [...] your risk of future heart problems. For [facility] call [phone] to schedule after you are home from your procedure. If you do not receive your referral, please call your custom wood stair builder's office for the order. It was nice to see you again, I wish you the best. Kindly, Monica Aguila APRN.SANTY documented in this encounterOhio State East Hospital03-12-2025 History of Present illness Narrative* Monica Aguila APRN.CNP - 04/30/2024 1:00 PM EDT Images from the original note were not included. [facility] Department of Cardiovascular Medicine SECTION OF INTERVENTIONAL CARDIOLOGY OUTPATIENT VISIT DATE April 30, 2024 OUTPATIENT VISIT TYPE ESTABLISHED FOLLOW UP Primary Demolition Specialist: Dr. Saeed Chief Complaint: Patient here for cardiac follow up evaluation History of Present Illness: Patient is a 78 year old female who presents for follow up visit today. Patient was here with a couple from her samaritan. She lives at home alone and is [...] 88 Resp 16 Ht 160 cm (5' 3) Wt 59.4 kg (131 lb) BMI 23.21 [...] no Dental clearance: Completed and scanned in epic PPM: No Anticoagulation: Coumadin- Last dose taken 04/27/2024 Contrast Allergy: no Surgeon Note 03/25/2024 KCCQ-12: 03/25/2024 15 Ft W: 03/25/2024 PLAN AND RECOMMENDATIONS: Haydee Bustamante is scheduled for TF-TAVR on 05/02/[address] Saeed Instructed to go to [employer]-1 REGISTRATION TODAY, after all appointment to register for the procedure. ON THE PROCEDURE DAY 05/03/2024, Report to [facility] J1-2 at 8:30. Instructions: The Evening Before [...] into surgery. - No make-up or nail croatian. - No jewelry, including watches, wedding rings and any body jewelry. // Questions about preparing for your procedure? Call your doctors office: Dr. Orlin Meyer [phone] Dr. Gallito Cortez [phone] Dr. Jason Olea [phone] Dr. Juvencio Saeed [phone] Interventional Discharge Readiness Tool Your Anticipated Discharge Needs: If you are discharged the same day -You must have accommodations in [place] (if you live over 2 hours away) [...] your risk of future heart problems. For [facility] call [phone] to schedule after you are home from your procedure. If you do not receive your referral, please call your custom wood stair builder's office for the order. I spent a total of 35 minutes on the date of the service which included preparing to see the patient, ccrw-ox-ecit patient care, completing clinical documentation, obtaining and/or reviewing separately obtained history, performing a medically appropriate examination, counseling and educating the pat ient/family/caregiver, and communicating results to the patient/family/caregiver. Monica Aguila APRN.CNP documented in this encounterOhio State East Hospital03-12-2025 History of Present illness Narrative* Ursula [...] PATIENT PRESENTS WITH AN IMPLANTABLE OR ATTACHED CO FOUNDER AND CTO: No RADIOLOGY DEPARTMENT: General X-ray: Exam(s) Completed: Chest X-Ray PERIPHERAL IV DATA: Not applicable SIGNED BY: RT Leslie(Ade) April 30, 2024 11:27 AM documented in this encounterOhio State East Hospital03-03-2025 History of Present illness Narrative* Geno Hart MD - 04/21/2024 11:00 AM EST Patient presents with: Disseminated histoplasmosis : Recurrent due to immunosuppression HPI: 78-year-old woman with 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 This recurrence was found as it was starting to be worked up by her correctional manager in February 2023 and we started therapy again when she was transferred to [facility] Due to massive hemoptysis found out to be COVID-positive. She was treated with remdesivir and dexamethasone and then put back on itraconazole March 19 for her histoplasma recurrence. She had previous disseminated histoplasmosis including [facility] Currently doing well [...] be getting a TAVR next week at [facility] due to aortic valve problems. Her [...] 11/22/2023 COVID-19 vaccine, age 12+ yr, bivalent ([employer]) 11/10/2021 TD Adult 11/06/2019 diphtheria tetanus (DT) [...] (FLONASE) 50 mcg/actuation nasal spray Use 1 Stephen in each nostril once daily. 3 Each 3 vit A,C,J-Odvx-Yiadqc (OCUVITE PRESERVISION) 2,148 mcg-113 mg-45 mg-17.4mg tab [...] positive rheumatoid factor (HCC) 03/07/2015 Dr. Hurley ([facility] [place]) Tricuspid regurgitation PAST SURGICAL HISTORY Procedure Laterality [...] SPINE FUSN,POST INTERBODY 2012 Dr. Armando at [facility]. Diskectomy and laminectomy PAST SURGICAL HISTORY OF 03/07/1999 removal facial lesion PAST SURGICAL HISTORY OF 08/17/2014 excision soft tissue mass left index finger TONSILLECTOMY PRIMARY/SECONDARY <AGE 12 TRANSCATH RETRIEVAL,PERCUT 12/28/2006 ACTIVE PROBLEM LIST Esophageal Reflux Meralgia Paresthetica Other Voice and Resonance Disorders Arthropathy, Unspecified, Site Unspecified Elevated Liver Enzymes Mcfp Current Use of Anticoagulant Therapy Hnp (Herniated [...] (Src) 97.9 (Temporal) Resp 18 Ht 5' 3 (1.60m) Wt 134 lb 7.7 oz (61.0kg) [...] 6 months (around 10/22/2024). documented in this encounterOhio State East Hospital02-26-2025 History of Present illness Narrative* Leandra Venegas APRN.CNS - 04/16/2024 9:13 AM EST Images from the original note were not included. documented in this encounterOhio State East Hospital02-25-2025 History of Present illness Narrative* Leandra Venegas APRN.CNS - 04/15/2024 12:44 PM EST I spoke with Haydee Bustamante on the phone. Will proceed with the following: TAVR procedure: SundayMay 02 Pre-op testing: SundayApril 30 No fasting is needed on pre-op day. Contrast Allergy: no Stop taking anticoagulation: Warfarin- stop taking on Sunday04/28/2024. Dana/Betsy/Christophe: Hold DOAC 24 hours prior to procedure. If GFR <30, hold DOAC 48 hoursprior to procedure Emmie: Hold DOAC the night before Beta-Pietro /Calcium channel Therapy to be stopped: (Dr. Olea only). GLP-1 agonist: no SGLT2 Inhibitors: no Dental clearance: she said this was completed. Can follow-up with her local dentist. Jasmyn Esposito [facility] [phone] Pacemaker evaluation: N/A Shante, Please schedule Haydee Bustamante [phone] for COMMERCIAL TF- TAVR ( CARLYN) Procedure on: Thursday May 02, 2024 Lab/CXR/EKG Appointment: SundayApril 30 Please schedule STRUCTURAL VALVE CLINIC Visit on: SundayApril 30 Date of J4-1 Anesthesia only: SundayApril [address] lab schedule on : Thursday May 02, 2024 at 8:30 AM CPT Code: 61054 Diagnosis Code: I35.0 PRESTO LOG OPERATOR: Dr. Saeed Performing Physician: Dr. Saeed OR: 81 Surgeon: Dr. Francis Please schedule bed reservation for post procedure-(should be a TCI) EVAN schedule- intra/op Patient also needs INSURANCE PRECERTIFICATION ADL SCORE___6 SURVIVAL RATE GREATER THAN 1 YEAR____Y___(LOOKING FOR A YES) EF ___N__(GREATER THAN 50%) Thank you. Leandra Venegas APRN.CNS Request sent to scheduling. documented in this encounterOhio State East Hospital02-25-2025 Telephone encounter Note * Telephone Encounter - Leandra Venegas APRN.CNS - 04/15/2024 12:12 PM EST Tried to call patient to schedule TAVR procedure. Left message for her to call the office. Leandra Venegas APRN.CNS [facility]02-25-2025 Miscellaneous Notes* Telephone Encounter - Leandra Venegas APRN.CNS - 04/15/2024 12:12 PM EST Tried to call patient to schedule TAVR procedure. Left message for her to call the office. 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 Neighbors nearby are very helpful to her when she needs help The pt. Is very active. She still drives and likes to go see plays regularly Program Details Chronic Disease Management Status: Enrolled Effective Dates: 04/14/2024 - present Responsible Staff: Pili Benitez, RN Support and Services: Chronic Obstructive Pulmonary [...] were you homeless or living in a mcfp (including now)?: No Transportation Needs In the [...] have money to get more.: Never true [employer] In the past 12 months has the [employer], oil, or water [employer] threatened to shut off services in your [...] Contact Your Physician Team Disposition Based on driller helper, the following disposition is advised: No action needed Pili Benitez RN April 14, 2024 4:01 PM documented in this encounterOhio State East Hospital02-15-2025 History of Present illness Narrative* Juvencio Saeed MD - 04/05/2024 4:01 PM EST Interventional Cardiology Staff Note Dr. Saeed receives payments from several device companies for educational activities, advisory boardduties, consulting, and/or proctoring. The companies include: [employer], [employer], and [employer]. A product by [employer], [employer], [employer], or a competitor, may be used in this patient's care. Dr. Saeed does not receive any money for products he or any other [facility] physicians prescribe or use. Dr. Saeed's choice on which product used in this patient's case is or was not influenced by his relationship with any company. Dr. Saeed selected the product that in his hands is believed to be the best option for this patient's treatment. This was discussed with the patient. Juvencio Saeed MD, MSc documented in this encounterOhio State East Hospital02-14-2025 History of Present illness Narrative* Tracey Heller APRN.CNP - 04/04/2024 6:21 AM EST Bay Heller APRN.TREE DOCTOR * Melissa Means RN - 04/03/2024 1:48 PM EST patient had inr completed at [facility] patients inr is 1.7 (patients inr range [...] for follow up INR. documented in this encounterOhio State East Hospital02-13-2025 Telephone encounter Note * Telephone Encounter [...] a TAVR. Alisa Allen RN, BSN Nurse Farm Demonstrator for Dr. Delfina Francis [facility]02-13-2025 Miscellaneous Notes* Telephone Encounter - Alisa Allen RN - 04/03/2024 7:35 AM EST TAVR Meeting on March 31 showed the following recommendation: Outcome: Haydee Rees Robby history and imaging were reviewed by the [...] to be scheduled for a TAVR. Alisa Allen, RN, BSN Nurse Farm Demonstrator for Dr. Delfina Francis * Telephone Encounter - Karen Nunez - 04/02/2024 1:44 PM EST Images from the original note were not included. LOCAL PATIENT Received Sabinal Email from Dr. Christophe Bustamante is being referred to Delfina Francis M.D. by Juvencio Saeed [address] [place] [id number] Patient diagnosis/Reason for consult: Aortic Valve Stenosis; Chronic Heart Failure Referral triage process explained: N/A Patient will receive a call from Cardiac NPM after triage review with surgeon to discuss any additional testing and/or consults that will be scheduled. Pt will then receive a call from our scheduling office for scheduling. Please call pt at [phone]. Patient Registration: Registration complete/updated: yes Insurance card(s) scanned in [facility] with in the past year: Yes: Date: 10/18/2023 Pt's [employer] is active. Ok to communicate to pt via [employer] not asked Medical Records: Records in [facility] (internal CC records): Yes Imaging in [facility] (internal CC records): Yes Care Everywhere - queried yes, downloaded Yes Linked Outside Organizations (list): Additional providers added to Care Teams: Yes Additional Notes/Comments: Internal Referral Enct routed to: Yes, Cardiac NPM for triage Karen Nunez documented in this encounterOhio State East Hospital02-12-2025 Telephone encounter Note * Telephone Encounter - Karen Nunez - 04/02/2024 1:44 PM EST Images from the original note were not included. LOCAL PATIENT Received Sabinal Email from Dr. Christophe Bustamante is being referred to Delfina Francis M.D. by Juvencio Saeed [address] [facility] [id number] Patient diagnosis/Reason for consult: Aortic Valve Stenosis; Chronic Heart Failure Referral triage process explained: N/A Patient will receive a call from Cardiac NPM after triage review with surgeon to discuss any additional testing and/or consults that will be scheduled. Pt will then receive a call from our scheduling office for scheduling. Please call pt at [phone]. Patient Registration: Registration complete/updated: yes Insurance card(s) scanned in [employer] [place] with in the past year: Yes: Date: 10/18/2023 Pt's [employer] is active. Ok to communicate to pt via [employer] not asked Medical Records: Records in [facility] (internal CC records): Yes Imaging in [facility] (internal CC records): Yes Care Everywhere - queried yes, downloaded Yes Linked Outside Organizations (list): Additional providers added to Care Teams: Yes Additional Notes/Comments: Internal Referral Enct routed to: Yes, Cardiac NPM for triage Karen Nunez [facility]-12-2025 Telephone encounter Note* Telephone Encounter - David Hoffmann - 04/02/2024 9:16 AM EST IN [facility] Work Phone: [phone] Miscellaneous Notes* Telephone Encounter - David Hoffmann - 04/02/2024 9:16 AM EST IN * Telephone Encounter - Karen Nunez - 04/01/2024 4:53 PM EST Insurance Card(s) scanned into [employer] Please register/advise Thank You! documented in this encounterOhio [facility] Hospital02-11-2025 Telephone encounter Note * Telephone Encounter - Karen Nunez - 04/01/2024 4:53 PM EST Insurance Card(s) scanned into [employer] Please register/advise Thank You! [facility]02-10-2025 History of Present illness Narrative* Estefania Ervin APRN.CNP - 03/31/2024 12:02 PM EST [facility] Department of Cardiovascular Medicine SECTION [...] be handled by: CVM coordinator Estefania Ervin APRN.TREE DOCTOR documented in this encounterOhio State East Hospital02-10-2025 History of Present illness Narrative* Yu [...] 31, 2024 10:42 AM documented in this encounterOhio State [facility] Hospital02-05-2025 History of Present illness Narrative* Yu [...] 26, 2024 9:38 AM documented in this encounterOhio State [facility] Hospital02-04-2025 History of Present illness Narrative* Delfina Francis MD - 03/25/2024 3:45 PM EST Images from the original note were not included. [facility], [facility] DEPARTMENT OF CARDIAC SURGERY OUTPATIENT VISIT DATE March 25, 2024 OUTPATIENT VISIT SERVICE DATE: 03/25/2024 SERVICE TIME: 3:45 PM PCP: Claudine Durán [address] [place] [address] Referring Physician: Monica Aguila [address] [facility] [place] [address] Patient Type: Consult Visit to determine Surgery: [...] the report.Minimum luminal diameter throughout: 7 mm Food Production Supervisor: [facility] Transcribe Date/Time: Mar 21 2024 11:22A [...] the requesting physician via electronic medical record Delfina Francis MD documented in this encounterOhio State East Hospital02-04-2025 Instructions* Patient Instructions* Monica Aguila APRN.TREE DOCTOR - 03/25/2024 11:06 AM EST Haydee- I [...] 2 hours exception would be to local hot) - Evening after 5PM -Must have an [...] your risk of future heart problems. For [facility] call [phone] to schedule after you are home from your procedure. If you do not receive your referral, please call your custom wood stair builder's office for the order. We also discussed [...] Kindly, Monica Aguila APRN.SANTY documented in this encounterOhio State East Hospital02-04-2025 History of Present illness Narrative* Monica Aguila APRN.CNP - 03/25/2024 11:00 AM EST Images from the original note were not included. [facility] Department of Cardiovascular Medicine SECTION OF INTERVENTIONAL CARDIOLOGY OUTPATIENT VISIT DATE March 25, 2024 OUTPATIENT VISIT TYPE ESTABLISHED FOLLOW UP Primary Demolition Specialist: Dr. Saeed Chief Complaint: Patient here for [...] I have personally reviewed the above testing. [place] CARDIOMYOPATHY QUESTIONNAIRE (KCCQ-12) Activity: A. Showering/bathing: Extremely [...] for other reasons. B. 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 For [facility] call [phone] to schedule after you are home from your procedure. If you do not receive your referral, please call your custom wood stair builder's office for the order. We also discussed [...] which included preparing to see the patient, [id number] patient care, completing clinical documentation, obtaining and/or reviewing separately obtained history, counseling and educating the patient/family/caregiver, independently interpretin g results (not separately reported), and communicating results to the patient/family/caregiver. Monica Aguila APRN.SANTY documented in this encounterOhio State East Hospital02-04-2025 History of Present illness Narrative* Chacho Anaya RRT - 03/25/2024 9:43 AM EST PULM FUNCTION: Provider: Monica Aguila APRN.CNP Spirometry: 1 DLCO: 1 J- LAB # 1 - PFT documented in this encounterOhio State East Hospital02-04-2025 History of Present illness Narrative* Ken [...] PATIENT PRESENTS WITH AN IMPLANTABLE OR ATTACHED CO FOUNDER AND CTO: No CREATININE: Creatinine Date Value Ref Range [...] DIAGNOSTIC CT PERFORMED: No IV SITE: Ambulatory: NC only - direct IV injection in the Left hand POST EXAM PIV STATUS: Not applicable PROCEDURE TYPE: NM INJECT: NM CARDIAC AMYLOID SPECT. 20.8 mCi Tc99m HDP. No other medications given.. ADMINISTRATION TIME: 8:34AM PATIENT DISCHARGED TO: Ambulatory patient, left NC department area. Is this a therapy: No A Diagnostic radioactive procedure has taken place, with no further precautions necessary other than routine body substance precautions. More information regarding radiation safety can be found usingthis link: [email or web address] SIGNATURE: RT Howie(R) PATIENT NAME: Haydee Bustamante DATE: March 25, 2024 TIME: 8:38 AM PAGER/CONTACT #: documented in this encounterOhio State East Hospital02-02-2025 Telephone encounter Note * Telephone Encounter [...] Caitlin Servin RN. In Department of CARDIOLOGY. [facility]02-02-2025 Miscellaneous Notes* Telephone Encounter - Caitlin [...] In Department of CARDIOLOGY. documented in this encounterOhio State East Hospital01-31-2025 History of Present illness Narrative* Yu Torres MA - 03/21/2024 2:37 PM EST POPULATION HEALTH NAVIGATION OUTREACH Action/FYI Last OV: 02/29/2024 No upcoming appts noted. Last Wellness Exam: Unknown Patient is due for: Annual Wellness Outcome: Left VM for patient to return call to schedule appointment/address care gaps. kajeethart message sent. Reason for Outreach Care Gap/HCC or Scheduling Wellness Visits Care Gaps due: Medicare Annual Wellness Visit Patient Contacted: Unable or unnecessary to reach patient: Left message MyChart message sent Navigation Signature: Yu Torres MA March 21, 2024 2:37 PM documented in this encounterOhio State East Hospital01-31-2025 History of Present illness Narrative* Ursula [...] PATIENT PRESENTS WITH AN IMPLANTABLE OR ATTACHED CO FOUNDER AND CTO: No RADIOLOGY DEPARTMENT: General X-ray: Exam(s) Completed: Chest X-Ray PERIPHERAL IV DATA: Not applicable SIGNED BY: SABRINA Nelson) March 21, 2024 11:38 AM documented in this encounterOhio State East Hospital01-31-2025 History of Present illness Narrative* Candace [...] to prevent falls during this visit? [place] Risk Wristband Applied PATIENT GENDER DATA: Assigned female at [...] PATIENT PRESENTS WITH AN IMPLANTABLE OR ATTACHED CO FOUNDER AND CTO: No RADIOLOGY DEPARTMENT: CT; Exam(s) Completed: Cardiac PERIPHERAL IV DATA: Site assessment: Clean,Dry and Intact, Site disposition Discontinued SIGNED BY: RT Clark(R) March 21, 2024 10:53 AM documented in this encounterOhio State East Hospital01-31-2025 History of Present illness Narrative* Juvencio Saeed MD - 03/21/2024 9:30 AM EST [facility] Department of Cardiovascular Medicine SECTION OF INTERVENTIONAL CARDIOLOGY OUTPATIENT VISIT DATE March 21, 2024 OUTPATIENT VISIT TYPE NEW PRIMARY CARE PHYSICIAN: Claudine Durán [address] [phone] REFERRING PHYSICIAN: No referring provider defined for [...] due to joint pain in hands, wrists everywhere since being off RA treatment for histoplasmosis. Symptoms have improved since restarting her RA medications. Uses a cane occasionally. Endorses fatigue, and minimal FLYNN with exertion - all chronic. At baseline lives at home alone with help from neighbors and friends - very active in [employer]. She denies chest pain, shortness of breath, dyspnea on exertion, orthopnea, PND, palpitations, lightheadedness, syncope, claudication, leg swelling, cough, and wheezing. Diet / Nutrition: regular Weight: stable Exercise: none PAST MEDICAL HISTORY Diagnosis Date Anemia Bone marrow involvement with histoplasmosis Aortic stenosis COPD (chronic obstructive pulmonary disease) ([facility]) Disseminated histoplasmosis Colitis, immunosuppression, 01/2018. Diverticulosis of colon (without mention of hemorrhage) Diverticulosis DVT, recurrent, lower extremity, acute ([facility]) 12/10/2014 GERD (gastroesophageal reflux disease) Hiatal hernia 02/25/2018 Hypertension Lung nodule Macular degeneration Mitral stenosis Rheumatoid arthritis involving multiple sites with positive rheumatoid factor ([facility]) 03/07/2015 Dr. Hurley ([facility] [place]) Tricuspid regurgitation PAST SURGICAL HISTORY Procedure Laterality [...] SPINE FUSN,POST INTERBODY 2011 Dr. Armando at [facility]. Diskectomy and laminectomy PAST SURGICAL HISTORY OF 03/07/1999 removal facial lesion PAST SURGICAL HISTORY OF 08/17/2014 excision soft tissue mass left index finger TONSILLECTOMY PRIMARY/SECONDARY <AGE 14 TRANSCATH RETRIEVAL,JEVON 12/28/2006 Social History Tobacco Use Smoking status: [...] fluticasone (FLONASE) 50 mcg/actuation nasal spray^Use 1 Stephen in each nostril once daily.^Disp: 3 Each^Rfl: 3 vit A,C,J-Pcck-Whrkke (OCUVITE PRESERVISION) 2,148 mcg-113 mg-45 mg-17.4mg tab^Take [...] 141/77 Pulse 96 Resp 18 Ht 5' 3 (1.60m) Wt 130 lb (59.0kg) SpO2 96[RA]% [...] CTS assessment. Following, finalize plan at heart teammeeting. I personally interviewed, confirmed and edited the above information as obtained by others. Juvencio Saeed M.D., M.Sc., F.A.C.C., F.S.Eliz. Staff, Interventional Cardiology [facility] Desk [address], [address] [place] [address] Office , toll-free [phone], [phone] Office Appointments: [phone], toll-free [phone], [phone] documented in this encounterOhio State East Hospital01-10-2025 Instructions* Patient Instructions* Claudine Durán MD - 02/29/2024 5:43 PM EST .aisavs documented in this encounterOhio State East Hospital01-10-2025 History of Present illness Narrative* Claudine Durán MD - 02/29/2024 5:23 PM EST This note was created using WorkCast[employer]. Subjective Haydee Bustamante is a 78 year [...] is scheduled for a TAVR on the 3rd of next month at the main campus. [...] and was restarted on methotrexate by her employee welfare manager, Dr. Jane Montoya. She was also prescribed [...] flu vaccines on the same day at [facility]. She reports some anxiety related to her upcoming surgery and recent life events, including a changein her email and bank account. She has a support system in place, including a friend who will accompany her to appointments and a medical power of managing attorney. She has advanced directives on file. She denies severe depression but reports being in a bad mood recently due to stress from her responsibilities with the [employer]. PAST MEDICAL HISTORY Diagnosis Date Anemia Bone marrow involvement with histoplasmosis Bronchiectasis (HCC) COPD (chronic obstructive pulmonary disease) ([facility]) Disseminated histoplasmosis Colitis, immunosuppression, 01/2018. Diverticulosis of colon (without mention of hemorrhage) Diverticulosis DVT, recurrent, lower extremity, acute ([facility]) 12/10/2014 Esophageal reflux Hiatal hernia 02/25/2018 Hypertension Lung nodule Personal history of unspecified urinary disorder Rheumatoid arthritis involving multiple sites with positive rheumatoid factor ([facility]) 03/07/2015 Dr. Hurley ([facility]) Unspecified hemorrhoids without mention of complication Hemorrhoids [...] (FLONASE) 50 mcg/actuation nasal spray Use 1 Stephen in each nostril once daily. vit A,C,S-Tson-Ngtoef (OCUVITE PRESERVISION) 2,148 mcg-113 mg-45 mg-17.4mg tab [...] failure with preserved ejection fraction (HFpEF) ([facility]) (I50.32) # Nonrheumatic aortic valve stenosis (I35.0) - Scheduled for TAVR on the of next month at the main campus. - Reports significant heart murmur audible during auscultation. - No current edema noted; Lasix on hold. - Spironolactone therapy discontinued. - Follow-up with cardiology on the of this month. # Rheumatoid arthritis with positive rheumatoid factor, involving unspecified site ([facility]) (M05.9) - Under management by Dr. Jane Montoya at [facility]. - Resumed methotrexate and initiated sulfasalazine 2 tablets twice daily; significant improvement in pain and stiffness reported. - Recent corticosteroid injection provided additional relief. - Humira therapy currently discontinued. # COPD without exacerbation ([facility]) (J44.9) # Bronchiectasis without complication ([facility]) (J47.9) - Conditions are stable; no exacerbations reported. - Cleared for upcoming TAVR procedure. # Screening for depression (Z13.31) # Encounter for screening examination for other mental health and behavioral disorders (Z13.39) - Depression screening completed; no severe depression noted. - Mild anxiety related to upcoming surgery; no pharmacological or counseling interventions requiredat this time. Claudine Durán MD documented in this encounterOhio State East Hospital01-10-2025 History of Present illness Narrative* Melissa Means RN - 02/29/2024 3:45 PM EST patient had inr completed at [facility] patients inr is 2.0 (patients inr [...] for follow up INR. documented in this encounterOhio State East Hospital01-02-2025 Telephone encounter Note * Telephone Encounter [...] Please review and advise. Jannet Aldana RN [facility] Work Phone: 1(998) 297-390101-02-2025 Miscellaneous Notes* Telephone Encounter - Jannet Aldana [...] advise. Jannet Aldana RN documented in this encounterOhio State East Hospital12-12-2024 History of Present illness Narrative* Jimbo Swanson APRN.CNS - 01/31/2024 4:15 PM EST Continue with Coumadin dose unchanged and check INR in 4 weeks * Melissa Means RN - 01/31/2024 2:06 PM EST patient had inr completed at [facility] patients inr is 1.9 (patients inr [...] for follow up INR. documented in this encounterOhio State East Hospital12-10-2024 History of Present illness Narrative* Ilda Miller RN - 01/29/2024 2:57 PM EST [facility] Telephonic Outreach Provider Action/FYI N/A 2nd attempt [...] more often than normal? No Based on driller helper, the following disposition is advised: No symptoms or symptoms present, not severe. Routed to: No Action Needed PAN Education Provided this Outreach: No Appointments for Next 60 Days Date Time Provider Location Dept Phone 01/31/2024 10:30 AM FAWAD [facility] [phone] 02/29/2024 3:40 PM CLAUDINE DURÁN [facility] [phone] Ilda Miller RN January 29, 2024 3:01 [...] goal align with programs offered at the [facility]? No Patient accepts telephonic outreach. PAN [...] stressful. Can we connect you with a [facility] Health It Security Manager to find a program that could help you meet your goals? No Falls completed:Yes ADL's updated: Yes Ilda Miller RN January 29, 2024 3:32 PM documented in this encounterOhio State East Hospital12-02-2024 History of Present illness Narrative* Ilda Miller RN - 01/21/2024 1:25 PM EST [facility] Telephonic Outreach Provider Action/SHAYNE N/A Contacted for: Routine Telephonic Outreach Contact made with patient: No, left message. Ilda Miller RN January 21, 2024 1:28 PM Goals/Falls/ADL Update Contact made with patient: No, left message. Ilda Miller RN January 21, 2024 1:28 PM documented in this encounterOhio State East Hospital11-21-2024 History of Present illness Narrative* Jimbo Swanson APRN.CNS - 01/10/2024 12:45 PM EST Coumadin 6mg and Sunday and 5mg all other days and recheck in 3 weeks due to the cc is closed at the 2 week jasmyn * Melissa Means RN - 01/10/2024 12:39 PM EST patient had inr completed at [facility] patients inr is 1.5 (patients inr range is 1.7-2.2) patient is currently taking 6mg and 5mg all other days patients last [...] not agree with recommendation documented in this encounterOhio State East Hospital11-19-2024 Note* Addendum Note - Monica Aguila APRN.CNP - 01/08/2024 4:18 PM ESTAddended by: MONICA AGUILA on: 01/08/2024 04:18 PM Modules accepted: Orders [facility]11-19-2024 Miscellaneous Notes* Addendum Note - Monica Mccormick APRN.CNP - 01/08/2024 4:18 PM ESTAddended by: MONICA MCCORMICK on: 01/08/2024 04:18 PM Modules accepted: Orders documented in this encounterOhio State East Hospital11-19-2024 History of Present illness Narrative* Monica Aguila APRN.CNP - 01/08/2024 9:30 AM EST TAVR STRUCTURAL REVIEW FORM Orders placed by: Dr. Drew on 01/02/2024 Records Reviewed: 01/08/2024 Appt request sent: 01/08/2024 Records in [facility] have been reviewed. Severe . Request has been sent to the international exchange coordinator who will arrange an appointment schedule. Please [...] greater, then it should be by an Staff Counsel ONLY (Dr. Cota, , Dr. Olea, Dr. Cortez, Dr. Meyer, Dr. Beavers, Dr. Jackson,Dr. Gillespie, Dr. Rosa, Dr. Dunn, Dr. Painter and Dr. West) DAY THREE: Nuclear Medicine- Amyloid SPECT Structural Valve Clinic appointment PFT s (spirometry, diffusing capacity) Patient is also to be seen by Dr. Francis/Dr. Macdonald/Dr. Costa/Dr. Silverio/ Dr. Delgado/Dr. Gonzalez/Dr. Arreaga/Dr. Luu/ Dr. Manzanares/ Dr. Gan/Dr. Anjali Aguila APRN.TREE DOCTOR documented in this encounterOhio State East Hospital11-15-2024 Telephone encounter Note * Telephone Encounter [...] Hart MD 01/04/2024 2:33 PM pgr [id number] [facility]11-15-2024 Miscellaneous Notes* Telephone Encounter - Geno [...] year on treatment and consider stopping so lexi be well past the point of any [...] 2:33 PM pgr [id number] documented in this encounterOhio State East Hospital11-13-2024 History of Present illness Narrative* Ines Drew MD - 01/02/2024 9:45 AM EST Images from the original note were not included. Heart, Vascular, and Thor[facility] Department of Cardiovascular Medicine SECTION [...] 2019 with steadily rising gradients referred to [facility] for intervention -Followed by Dr. Hart from [place] for histoplasmosis, recent labs 12/19 show histo antigen negative -[facility] for and pericardial effusion last seen 08/27/23, then by Raji ROSALES 10/18/23 - awaiting evaluation for aortic valve intervention. Referred to [facility] for further management. Patient reports at baseline she is very limited due to joint pain in hands, wrists everywhere since being off RA treatment for histo. She uses cane in clinic today - seen in wheelchair. Reports at baseline lives at home alone with help from neighbors and friends - very active in [employer].No family close by. No reported cardiac [...] Diverticulosis DVT, recurrent, lower extremity, acute ([facility]) 12/10/2014 Esophageal reflux Hiatal hernia 02/25/2018 Hypertension Lung nodule Personal history of unspecified urinary disorder Rheumatoid arthritis involving multiple sites with positive rheumatoid factor ([facility]) 03/07/2015 Dr. Hurley ([facility] [place]) Unspecified hemorrhoids without mention of complication Hemorrhoids [...] SPINE FUSN,POST INTERBODY 2011 Dr. Armando at [facility]. Diskectomy and laminectomy PAST SURGICAL HISTORY [...] (FLONASE) 50 mcg/actuation nasal spray Use 1 Stephen in each nostril once daily. pantoprazole DR (PROTONIX) 40 mg tablet Take 1 tablet by mouth once daily. vit A,C,H-Okut-Mfyuxb (OCUVITE PRESERVISION) 2,148 mcg-113 mg-45 mg-17.4mg tab [...] Adult) Pulse 81 Ht 160 cm (5' 3) Wt 56.2 kg (124 lb) SpO2 97% [...] We recommend a follow-up with TAVR clinic. [facility] STAFF PHYSICIAN NOTE OF PERSONAL INVOLVEMENT [...] of Cardiovascular Medicine Heart, Vascular and Thoracic [facility] Desk [address] [place] [address] Office - [phone] extension [phone] Office E-mail: [email or web address] Appointments: [phone] extension [phone] documented in this encounterOhio State East Hospital11-07-2024 History of Present illness Narrative* Jimbo Swanson APRN.CNS - 12/27/2023 2:01 PM EST Coumadin 6mg Thurs and 5mg all other days and recheck in 2 weeks * Melissa Means RN - 12/27/2023 12:19 PM EST patient had inr completed at [facility] patients inr is 1.5 (patients inr [...] not agree with recommendation documented in this encounterOhio State East Hospital10-31-2024 History of Present illness Narrative* Rosa Wallace RN - 12/20/2023 11:22 AM EDT M Telephonic Outreach Provider Action/FYI Contacted for: Engagement Contact made with patient: Yes Patient identified by name and date of . Discussed care with patient Outcomes: Patient switched from [facility] to telephone outreach Are you experiencing any new or worsening symptoms you need to talk about today? No Based on driller helper, the following disposition is advised: No symptoms or symptoms present, not severe. Routed to: No Action Needed PAN Education Provided this Outreach: No Rosa Wallace RN December 20, 2023 11:29 AM documented in this encounterOhio State East Hospital10-31-2024 Telephone encounter Note * Telephone Encounter - Jimbo Swanson APRN.CNS - 12/20/2023 7:12 AM EDT ok [facility]10-[facility] Miscellaneous Notes* Telephone Encounter - Jimbo Swanson APRN.CNS - 12/20/2023 7:12 AM EDT ok * Telephone Encounter - Migdalia Montoya LPN - 12/19/2023 10:06 AM EDT Patient is not able to fill her 1 mg Coumadin. Directions on script are different from what patientwas instructed to take verbally. Patient has been taking 6 mg and 5 mg all other days. Rx that was sent on 12/12 has 6 mg Th and 4 mg all other days. Please update prescription and send to pharmacy. documented in this encounterOhio State East Hospital10-30-2024 History of Present illness Narrative* Rosa Wallace RN - 12/19/2023 3:54 PM EDT [facility] Telephonic Outreach Provider Action/FYI Contacted for: Engagement Contact made with patient: No, left message. Rosa Wallace RN December 19, 2023 3:57 PM documented in this encounterOhio State East Hospital10-30-2024 Telephone encounter Note * Telephone Encounter - Migdalia Montoya LPN - 12/19/2023 10:06 AM EDT Patient is not able to fill her 1 mg Coumadin. Directions on script are different from what patientwas instructed to take verbally. Patient has been taking 6 mg and 5 mg all other days. Rx that was sent on 12/12 has 6 mg and 4 mg all other days. Please update prescription and send to pharmacy. [facility] History of Present illness Narrative* Geno Hart MD - 12/18/2023 11:00 AM EDT Patient presents with: Disseminated histoplasmosis : Follow-up on itraconazole HPI: 78-year-old woman immunosuppressed due to rheumatoid arthritis on Biologics, COPD with bronchiectasis, previously treated by [facility] for disseminated histoplasmosis and did well. In February 2023 was transferred here from [facility] with massive hemoptysis found out to [...] relatively normal. 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 [address] (PROTONIX) 40 mg tablet Take 1 tablet by mouth once daily. 90 tablet 3 vit A,C,H-Lifu-Xrsgxk (OCUVITE PRESERVISION) 2,148 mcg-113 mg-45 mg-17.4mg tab [...] (HCC) COPD (chronic obstructive pulmonary disease) ([facility]) Disseminated histoplasmosis Colitis, immunosuppression, 01/2018. Diverticulosis of colon (without mention of hemorrhage) Diverticulosis DVT, recurrent, lower extremity, acute [facility] [place]) 12/10/2014 Esophageal reflux Hiatal hernia 02/25/2018 Hypertension Lung nodule Personal history of unspecified urinary disorder Rheumatoid arthritis involving multiple sites with positive rheumatoid factor ([facility]) 03/07/2015 Dr. Hurley ([facility]) Unspecified hemorrhoids without mention of complication Hemorrhoids [...] SPINE FUSN,POST INTERBODY 2011 Dr. Armando at [facility]. Diskectomy and laminectomy PAST SURGICAL HISTORY OF 03/07/1999 removal facial lesion PAST SURGICAL HISTORY OF 08/17/2014 excision soft tissue mass left index finger TONSILLECTOMY PRIMARY/SECONDARY <AGE 12 TRANSCATH RETRIEVAL,PERCUT 12/28/2006 ACTIVE PROBLEM LIST Esophageal Reflux Meralgia Paresthetica Other Voice and Resonance Disorders Arthropathy, Unspecified, Site Unspecified Elevated Liver Enzymes Mcfp Current Use of Anticoagulant Therapy Hnp (Herniated [...] (Src) 98.7 (Temporal) Resp 16 Ht 5' 3 (1.60m) Wt 125 lb 14.4 oz (57.1kg) [...] reports reviewed. Great deal of time spent [id number] with the patient mostly in discussion Return in about 4 months (around 04/18/2024). documented in this encounterOhio [facility]10-24-[facility]24 History of Present illness Narrative* Jimbo Swanson APRN.CNS - 12/13/2023 4:22 PM EDT Coumadin 6 mg and 5 mg all other days and check INR in 2 weeks. * Melissa Means RN - 12/13/2023 1:17 PM EDT patient had inr completed at [facility] patients inr is 1.4 (patients inr [...] an rx for 1mg coumadin sent to [facility] (rx has been pended for approval) please review and advise on recommendation patient only needs called if provider does not agree with recommendation documented in this encounterOhio State East Hospital10-22-2024 Telephone encounter Note * Telephone Encounter [...] Mann LPN December 11, 2023 3:42 PM [facility] Miscellaneous Notes* Telephone Encounter - Lynne [...] 11, 2023 3:42 PM documented in this encounterOhio State East Hospital10-10-2024 History of Present illness Narrative* Jimbo Swanson APRN.CNS - 11/29/2023 3:00 PM EDT Coumadin 5 mg daily and check INR in 2 weeks * Melissa Means RN - 11/29/2023 12:35 PM EDT patient had inr completed at [facility] patients inr is 2.3 (patients inr [...] not agree with recommendation documented in this encounterOhio State East Hospital10-07-2024 Telephone encounter Note * Telephone Encounter - Jannet Aldana RN - 11/26/2023 2:38 PM EDT Patient cannot come in this week, she has been rescheduled to 12-17. Jannet Aldana RN [facility] Work Phone: 1(533) 998-571510-07-2024 Miscellaneous Notes* Telephone Encounter - Jannet Aldana [...] through December 20. * Telephone Encounter - Janent Aldana RN - 11/26/2023 10:38 AM EDT Labs received from [facility] that will be scanned. They recommended a follow up with ID due toCRP 7.8 mg/dL and ESR 93 mm/hr. Patient is scheduled on 01-08-24. Should her appointment be scheduled sooner? Thank you, Jannet Aldana RN documented in this encounterOhio State East Hospital10-07-2024 Telephone encounter Note * Telephone Encounter - Jannet Aldana RN - 11/26/2023 1:07 PM EDT Voicemail left for patient to return call. Jannet Aldana RN [facility]10-07-2024 Telephone encounter Note* Telephone Encounter - [...] week around December 16 through December 20. [facility] Work Phone: 1(875) 508-332110-07-2024 Telephone encounter Note* Telephone Encounter - Jannet Aldana RN - 11/26/2023 10:38 AM EDT Labs received from [facility] that will be scanned. They recommended a follow up with ID due toCRP 7.8 mg/dL and ESR 93 mm/hr. Patient is scheduled on 01-08-24. Should her appointment be scheduled sooner? Thank you, Jannet Aldana RN [facility]09-26-[facility] Telephone encounter Note* Telephone Encounter - Jimbo Swanson APRN.CNS - 11/15/2023 4:53 PM EDT ok [facility]09-[facility] Miscellaneous Notes* Telephone Encounter - Jimbo [...] can not be approved. documented in this encounterOhio State East Hospital09-26-2024 Telephone encounter Note * Telephone Encounter - Melissa Means RN - 11/15/2023 12:26 PM EDT patients orders for coumadin clinic inr's has at this time. new order has been pended for approval if possible so that patient can continue to get inr's completed thru the coumadin clinic. coumadin clinic nurse only needs called if order can not be approved. [facility]09-[facility] History of Present illness Narrative* Melissa Means RN - 11/15/2023 12:24 PM EDT patient had inr completed at [facility] patients inr is 2.1 (patients inr [...] reading since dose change documented in this encounterOhio State East Hospital09-19-2024 History of Present illness Narrative* Melissa Means RN - 11/08/2023 4:20 PM EDT pcp agrees with information * Melissa Means RN - 11/08/2023 2:00 PM EDT patient had inr completed at [facility] patients inr is 2.8 (patients inr range is 1.7-2.2) patient is currently taking 7.5mg Tues,Thurs and 5mg all other days per WHISKEY FILTERER Jv patients last dose change was on [...] not agree with recommendation documented in this encounterOhio State East Hospital09-16-2024 Telephone encounter Note * Telephone Encounter - Claudine Durán MD - 11/05/2023 4:53 PM EDT The following approved medication requests have been transmitted electronically. Requested Prescriptions Pending Prescriptions Disp Refills itraconazole (SPORANOX) 10 mg/mL solution 1200 mL 0 Sig: Take 20 mL by mouth two times a day. Claudine Durán MD [facility]09-16-2024 Miscellaneous Notes* Telephone Encounter - Claudine [...] day. ALLERGIES Allergen Reactions Penicillins Hives (home) [phone] (cell) Last Office Visit Date: 10/11/2023 Last Distance Health Visit: Visit date not found Future Appointment: 02/29/2024 The patients preferred pharmacy has been captured for this encounter? yes Request is for script(s) to be escript to pharmacy. Yessica Pelayo LPN documented in this encounterOhio State East Hospital09-16-2024 Telephone encounter Note * Telephone Encounter - Yessica Pelayo LPN - 11/05/2023 11:28 AM EDT Patient MyChart message requesting the following refill Refill(s) Requested: Requested Prescriptions Pending Prescriptions Disp Refills itraconazole (SPORANOX) 10 mg/mL solution 1200 mL 0 Sig: Take 20 mL by mouth two times a day. ALLERGIES Allergen Reactions Penicillins Hives (home) [phone] (cell) Last Office Visit Date: 10/11/2023 Last Distance Health Visit: Visit date not found Future Appointment: 02/29/2024 The patients preferred pharmacy has been captured for this encounter? yes Request is for script(s) to be escript to pharmacy. Yessica Pelayo LPN [facility]09-10-20[facility] Telephone encounter Note* Telephone Encounter - Ashley Rahman MA - 10/30/2023 2:51 PM EDT Forms were successfully faxed to [phone] to [facility]. Form placed in PSS basket for scanning. [facility]09-10-[facility] Miscellaneous Notes* Telephone Encounter - Ashley RahmanSANDY - 10/30/2023 2:51 PM EDT Forms were successfully faxed to [phone] to [facility]. Form placed in PSS basket for scanning. documented in this encounterOhio State East Hospital09-06-2024 History of Present illness Narrative* Yesenia Weinstein LPN - 10/26/2023 3:59 PM EDT Patient was given coumadin instructions and verbalized understanding. * Jimbo Swanson APRN.CNS - 10/25/2023 3:30 PM EDT Recommend Coumadin 7.5 Sunday and and 5 mg all other days. Check INR in 2 weeks * Melissa Means RN - 10/25/2023 12:34 PM EDT patient had inr completed at [facility] patients inr is 1.3 (patients inr [...] not agree with recommendation documented in this encounterOhio State East Hospital09-04-2024 Telephone encounter Note * Telephone Encounter - Claudine Durán MD - 10/24/2023 5:14 PM EDT The following approved medication requests have been transmitted electronically. Requested Prescriptions Signed Prescriptions Disp Refills warfarin (COUMADIN) 5 mg tablet 90 tablet 3 Sig: Take 1 tablet by mouth once daily. or as directed Authorizing Provider: CLAUDINE DURÁN MD [facility]09-04-2024 Miscellaneous Notes* Telephone Encounter - Claudine [...] you. Maritza Preston LPN. documented in this encounterOhio State East Hospital09-03-2024 Telephone encounter Note * Telephone Encounter [...] Please advise. Thank you. Maritza Preston LPN. [facility]08-30-[facility] History of Present illness Narrative* Melissa Means RN - 10/19/2023 3:22 PM EDT pcp agrees with information * Melissa Means RN - 10/19/2023 11:54 AM EDT patient had inr completed at [facility] patients inr is 1.1 (patients inr [...] not agree with recommendation documented in this encounterOhio State East Hospital08-29-2024 Instructions* Patient Instructions* Bibi Alegria APRN.SANTY - 10/18/2023 10:41 AM EDT It was [...] your appointment with the valve team at [facility]. 5. Follow up with Dr. Messina in 3-4 months with echo prior documented in this encounterOhio State East Hospital08-29-2024 History of Present illness Narrative* Bibi Alegria APRN.SANTY - 10/18/2023 10:00 AM EDT Images from the original note were not included. [facility] Department of Cardiovascular Medicine SECTION OF CLINICAL CARDIOLOGY OUTPATIENT VISIT DATE October 18, 2023 OUTPATIENT VISIT TYPE ESTABLISHED PRIMARY CARE PHYSICIAN: Claudine Durán [address] [place] [address] CHIEF COMPLAINT: 1 month follow up HISTORY [...] who referred her to valve clinic at [facility]. She denies any chest pain, palpitations, sh ortness of breath, lightheadedness, dizziness, presyncope, syncope, orthopnea, or PND. Subjective PAST MEDICAL HISTORY No date: Anemia Comment: Bone marrow involvement with histoplasmosis No date: Bronchiectasis ([facility]) No date: COPD (chronic obstructive pulmonary disease) ([facility]) No date: Disseminated histoplasmosis Comment: Colitis, immunosuppression, 01/2018. No date: Diverticulosis of colon (without mention of hemorrhage) Comment: Diverticulosis 12/10/2014: DVT, recurrent, lower extremity, acute ([facility]) No date: Esophageal reflux 02/25/2018: Hiatal hernia No date: Hypertension No date: Lung nodule No date: Personal history of unspecified urinary disorder 03/07/2015: Rheumatoid arthritis involving multiple sites with positive rheumatoid factor ([facility]) Comment: Dr. Hurley ([facility]) No date: Unspecified hemorrhoids without mention of [...] SPINE FUSN,POST INTERBODY Comment: Dr. Armando at [facility]. Diskectomy and laminectomy 03/07/1999: PAST SURGICAL [...] fluticasone (FLONASE) 50 mcg/actuation nasal spray^Use 1 Stephen in each nostril once daily.^Disp: 3 Each^Rfl: 3 vit A,C,H-Tyhf-Lclliw (OCUVITE PRESERVISION) 2,148 mcg-113 mg-45 mg-17.4mg tab^Take [...] 120/60 Pulse 82 Ht 160 cm (5' 3) Wt 52.8 kg (116 lb 6.5 oz) [...] ECGS AVAILABLE Confirmed by MD KEESHA, MIRIAN ([id number]) on 03/29/2023 8:55:[address] Result [...] calcified granuloma middle mediastinum. Small hiatal hernia Food Production Supervisor[facility] Transcribe Date/Time: Sep 05 2023 12:56P Dictated [...] avoid significant preload depletion - Referred to [facility] for valve intervention by PCP - [...] has been referred for valve intervention at [facility] by her PCP and is scheduled [...] should need arise. CONTACT INFORMATION: Bibi Alegria APRN.CNP Cardiology Nurse Practitioner Section of Regional Cardiology [facility] Dept of Cardiovascular Medicine [facility] [phone] [phone] Office Office This note was partially generated using Social Plus voice recognition system and may contain errors related to that system including grammar, punctuation, spelling, and words that may be inappropriate documented in this encounterOhio State East Hospital08-28-2024 History of Present illness Narrative* Ilda Miller RN - 10/17/2023 3:43 PM EDT [facility] Telephonic Outreach Provider Action/EWELINAI N/A Contacted for: Engagement Last questionnaire completed: 08/31/23 My Chart reminder letter sent 10/02/23 No response to date to My Chart questionnaire. Contact made with patient: No, left message. Ilda Miller RN October 17, 2023 3:48 PM documented in this encounterOhio State East Hospital08-22-2024 Instructions* Patient Instructions* Jimbo Swanson APRN.CNS - 10/11/2023 1:48 PM EDT Let us know right away if having any chest pain or feeling dizzy or like you could pass out or if you do pass out. Okay to use diclofenac gel on your knees. Try using acetaminophen hydrocodone as needed for pain of your knees. documented in this encounterOhio State East Hospital08-22-2024 History of Present illness Narrative* Jimbo Swanson APRN.TYLOR - 10/11/2023 1:03 PM EDT SUBJECTIVE: Depression Screening Never done Anxiety Screening Never done Advance Directive Discussion due on 02/19/2023 Covid-19 Vaccine() due on 03/01/2023 HPI Haydee Bustamante is [...] bicuspid valve, lung nodule bronchiectasis and COPD. Body Shop Floorperson: Florence Collins MD, for follow-up of lung nodules bronchiectasis. Thermostat Maker: Jane Montoya MD [facility]. Not taking Humira or methotrexate due to histoplasmosis, expects treatment to be completed in December. She notes significant knee pain. Has been using adyv-iks-kdwmqgb topical diclofenac. She was seen by Claudine Durán MD in May 2023 for follow-up appointment after discharge from [facility] after being in TCU after hospitalization. She [...] was referred for to orthopedic physician versus employee welfare manager for this at her earliest convenience. She was then seen by Twyla Cuevas 08/08/2023 for follow-up regarding flareup of rheumatoid arthritisand swelling of her lower legs. She was treated with prednisone tapering dose furosemide 20 mg daily x 5 days, then as needed. She was then admitted to [facility] for GI bleed July 2023. She [...] fluticasone (FLONASE) 50 mcg/actuation nasal spray^Use 1 Stephen in each nostril once daily.^Disp: 3 Each^Rfl: [address] (PROTONIX) 40 mg tablet^Take 1 tablet by mouth once daily.^Disp: 90 tablet^Rfl: 3 vit A,C,S-Xqkd-Lzfuwg (OCUVITE PRESERVISION) 2,148 mcg-113 mg-45 mg-17.4mg tab^Take [...] marrow involvement with histoplasmosis No date: Bronchiectasis ([facility]) No date: COPD (chronic obstructive pulmonary disease) ([facility]) No date: Disseminated histoplasmosis Comment: Colitis, immunosuppression, 01/2018. No date: Diverticulosis of colon (without mention of hemorrhage) Comment: Diverticulosis 12/10/2014: DVT, recurrent, lower extremity, acute ([facility]) No date: Esophageal reflux 02/25/2018: Hiatal hernia No date: Hypertension No date: Lung nodule No date: Personal history of unspecified urinary disorder 03/07/2015: Rheumatoid arthritis involving multiple sites with positive rheumatoid factor ([facility]) Comment: Dr. Hurley ([facility]) No date: Unspecified hemorrhoids without mention of [...] the prior CC echocardiographic exam performed on 09/22/2022([facility]). The mitral and aortic valve gradients [...] - CONSULT TO CARDIOLOGY - Dr Drew [facility] 4. Gastrointestinal hemorrhage, unspecified gastrointestinal hemorrhage [...] Level: 4 - Moderate documented in this encounterOhio State East Hospital08-09-2024 Telephone encounter Note * Telephone Encounter - [...] Weinstein LPN September 28, 2023 10:21 AM [facility]08-09-[facility] Miscellaneous Notes* Telephone Encounter - Yesenia [...] 28, 2023 10:21 AM documented in this encounterOhio State East Hospital08-08-2024 History of Present illness Narrative* Melissa Means RN - 09/27/2023 3:36 PM EDT pcp agrees with information * Melissa Means RN - 09/27/2023 12:06 PM EDT patient had inr completed at [facility] patients inr is 1.3 (patients inr [...] recheck after restarting it documented in this encounterOhio State East Hospital08-05-2024 History of Present illness Narrative* Claudine Durán MD - 09/24/2023 8:11 AM EDT This note was created using WorkCastriter. Subjective Haydee Bustamante is a 78 year old female. Patient presents with: Hospital F/U: [facility] ED/Hospital discharge 08/18/23 SUBJECTIVE: Haydee Bustamante [...] date: COPD (chronic obstructive pulmonary disease) ([facility]) No date: Disseminated histoplasmosis Comment: Colitis, immunosuppression, 01/2018. No date: Diverticulosis of colon (without mention of hemorrhage) Comment: Diverticulosis 12/10/2014: DVT, recurrent, lower extremity, acute ([facility]) No date: Esophageal reflux 02/25/2018: Hiatal hernia No date: Hypertension No date: Lung nodule No date: Personal history of unspecified urinary disorder 03/07/2015: Rheumatoid arthritis involving multiple sites with positive rheumatoid factor ([facility]) Comment: Dr. Hurley ([facility]) No date: Unspecified hemorrhoids without mention of [...] (FLONASE) 50 mcg/actuation nasal spray Use 1 Stephen in each nostril once daily. pantoprazole DR (PROTONIX) 40 mg tablet Take 1 tablet by mouth once daily. vit A,C,W-Whro-Rtezco (OCUVITE PRESERVISION) 2,148 mcg-113 mg-45 mg-17.4mg tab [...] AM EDT This note was created using WorkCastriter. Subjective Haydee Bustamante is a 78 year old female. Patient presents with: Hospital F/U: [facility] ED/Hospital discharge 08/18/23 SUBJECTIVE: Haydee Bustamante [...] Bone marrow involvement with histoplasmosis Bronchiectasis ([facility]) COPD (chronic obstructive pulmonary disease) ([facility]) Disseminated histoplasmosis Colitis, immunosuppression, 01/2018. Diverticulosis of colon (without mention of hemorrhage) Diverticulosis DVT, recurrent, lower extremity, acute ([facility]) 12/10/2014 Esophageal reflux Hiatal hernia 02/25/2018 Hypertension Lung nodule Personal history of unspecified urinary disorder Rheumatoid arthritis involving multiple sites with positive rheumatoid factor ([facility]) 03/07/2015 Dr. Hurley ([facility]) Unspecified hemorrhoids without mention of complication Hemorrhoids [...] (FLONASE) 50 mcg/actuation nasal spray Use 1 Stephen in each nostril once daily. pantoprazole DR (PROTONIX) 40 mg tablet Take 1 tablet by mouth once daily. vit A,C,A-Iaoo-Pglapk (OCUVITE PRESERVISION) 2,148 mcg-113 mg-45 mg-17.4mg tab [...] sleep. Claudine Durán MD documented in this encounterOhio State East Hospital08-02-2024 History of Present illness Narrative* Twyla Cuevas APRN.CNP - 09/21/2023 2:36 PM EDT Noted and agree, thank you! * Melissa Means RN - 09/21/2023 2:33 PM EDT patient had inr completed at [facility] patients inr is 2.4 (patients inr [...] not agree with recommendation documented in this encounterOhio State East Hospital07-17-2024 Telephone encounter Note * Telephone Encounter - Thi Zambrano OCCA - 09/05/2023 8:48 AM EDT TC to patient who is informed of providers message and is agreeable to starting spironolactone. CARMEN Viveros [facility]07-17-2024 Miscellaneous Notes* Telephone Encounter - Thi [...] save her potassium. I sent this to [facility]. * Telephone Encounter - Maritza Preston [...] of breath, Patient had CBC done at [facility] yesterday. Patient does not have letter [...] taking her potassium pills. documented in this encounterOhio State East Hospital07-17-2024 Telephone encounter Note * Telephone Encounter - Twyla Cuevas APRN.CNP - 09/05/2023 7:18 AM EDT Okay, to help the swelling and the potassium I am going to send in spironolactone for her to start,it is a potassium sparing diuretic, it should help with the swelling but will also help save her potassium. I sent this to [facility]. [facility] Telephone encounter Note* Telephone Encounter - [...] of breath, Patient had CBC done at [facility] yesterday. Patient does not have letter for Handicapped Swathi written 08/22/2023, asking for another copy to be mailed to her. Put on nurse's counter for Dr. Durán to sign, addressed envelope ready. Maritza Preston LPN [facility]07-16-[facility] Telephone encounter Note* Telephone Encounter - Geni Cintron LPN - 09/04/2023 4:20 PM EDT Attempted to reach patient with no answer and unable to leave a message. [facility] Telephone encounter Note* Telephone Encounter - Twyla Cuevas APRN.CNP - 09/04/2023 4:05 PM EDT Lab testing shows kidney function stable, potassium is low. Please see how often she has been taking her lasix and how often she is currently taking her potassium pills. [facility] History of Present illness Narrative* Ilda Miller RN - 08/31/2023 12:15 PM EDT [facility] Telephonic Outreach Provider Action/FYI N/A Contacted for: Engagement & SDOH screening for food insecurity and transportation -no needs identified Last questionnaire completed: 03/13/23 My Chart reminder letter sent 04/16/23, 08/07/23 Telephonic outreach: 07/05/23-left VM No response to date to My Chart questionnaire. Of note: Recent [facility] discharge 08/18/23 Contact made with patient: Yes Patient identified by name and date of . Discussed care with patient Outcomes: Patient forgot, reminder given Are you experiencing any new or worsening symptoms you need to talk about today? No Based on driller helper, the following disposition is advised: No symptoms or symptoms present, not severe. Routed to: No Action Needed PAN Education Provided this Outreach: No Upcoming appointments reviewed: Appointments for Next 60 Days Date Time Provider Location Dept Phone 09/20/2023 10:00 AM ANGELAAG [facility] [phone] 09/28/2023 10:30 AM [facility] [phone] 10/11/2023 1:00 PM JIMBO SWANSON [facility] [phone] 10/18/2023 10:00 AM BIBI ALEGRIA [facility] [phone] Ilda Miller RN August 31, 2023 12:38 PM documented in this encounterOhio State East Hospital07-12-2024 Telephone encounter Note * Telephone Encounter [...] Quintanilla LPN August 31, 2023 9:30 AM [facility]07-12-[facility] Miscellaneous Notes* Telephone Encounter - Danita [...] 31, 2023 9:30 AM documented in this encounterOhio State East Hospital07-11-2024 History of Present illness Narrative* Melissa Means, PAULA - 08/30/2023 3:46 PM EDT pcp agrees with information * Melissa Means RN - 08/30/2023 1:13 PM EDT patient had inr completed at [facility] patients inr is 1.9 (patients inr [...] for follow up INR. documented in this encounterOhio State East Hospital07-11-2024 History of Present illness Narrative* Faviola [...] PATIENT PRESENTS WITH AN IMPLANTABLE OR ATTACHED CO FOUNDER AND CTO: No RADIOLOGY DEPARTMENT: CT; Exam(s) Completed: Chest PERIPHERAL IV DATA: Not applicable SIGNED BY: RT Maryann(R) August 30, 2023 3:28 PM documented in this encounterOhio State East Hospital07-09-2024 History of Present illness Narrative* Geno Hart MD - 08/28/2023 9:00 AM EDT Patient presents with: Histoplasmosis : Disseminated due to immunocompromising meds HPI: 78-year-old woman with rheumatoid arthritis on Biologics, COPD and bronchiectasis, in the past 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 physicianfor such with appropriate management. Went into the hospital in March transferred to [facility] from [place] for what was felt to be massive hemoptysis which did not returned telephone equipment appraiser to be that bad. She also had [...] She at one point went back to [place] for some type of edema that caused open sores on her legs which got treated in the hospital and became better. Currently states no fevers or chills. The prior horrible cough she had at the [facility] after hospitalization is gone. She has no wasting, appetite loss severe shortness of breath, current hemoptysis. She has no problem with her bowels except 2 weeks ago had a rectal bleed ended up seeing a gang investigator in [facility] and after 3 units of blood did well. She had a 6-day admission and Dr. Orellana gang investigator did an EGD with duodenal bleeding ulcer [...] (FLONASE) 50 mcg/actuation nasal spray Use 1 Stephen in each nostril once daily. [address] (PROTONIX) 40 mg tablet Take 1 tablet by mouth once daily. 90 tablet 3 vit A,C,A-Kkbn-Djozzm (OCUVITE PRESERVISION) 2,148 mcg-113 mg-45 mg-17.4mg tab [...] (HCC) COPD (chronic obstructive pulmonary disease) ([facility]) Disseminated histoplasmosis Colitis, immunosuppression, 01/2018. Diverticulosis of colon (without mention of hemorrhage) Diverticulosis DVT, recurrent, lower extremity, acute ([facility]) 12/10/2014 Esophageal reflux Hiatal hernia 02/25/2018 Hypertension Lung nodule Personal history of unspecified urinary disorder Rheumatoid arthritis involving multiple sites with positive rheumatoid factor ([facility]) 03/07/2015 Dr. Hurley ([facility]) Unspecified hemorrhoids without mention of complication Hemorrhoids [...] SPINE FUSN,POST INTERBODY 2011 Dr. Armando at [facility]. Diskectomy and laminectomy PAST SURGICAL HISTORY OF 03/07/1999 removal facial lesion PAST SURGICAL HISTORY OF 08/17/2014 excision soft tissue mass left index finger TONSILLECTOMY PRIMARY/SECONDARY <AGE 12 TRANSCATH RETRIEVAL,PERCUT 12/28/2006 ACTIVE PROBLEM LIST Esophageal Reflux Meralgia Paresthetica Other Voice and Resonance Disorders Arthropathy, Unspecified, Site Unspecified Elevated Liver Enzymes Mcfp Current Use of Anticoagulant Therapy Hnp (Herniated [...] (Src) 98.3 (Temporal) Resp 18 Ht 5' 3 (1.60m) Wt 132 lb 6.4 oz (60.1kg) [...] 4 months (around 12/29/2023). documented in this encounterOhio [facility] Hospital07-08-[facility]24 Telephone encounter Note * Telephone Encounter - Ashley Rahman MA - 08/27/2023 9:59 AM EDT Please call Pt to schedule Limited Echo prior to next OV with Bibi Alegria. [facility]07-08-[facility] Miscellaneous Notes* Telephone Encounter - Ashley Rahman MA - 08/27/2023 9:59 AM EDT Please call Pt to schedule Limited Echo prior to next OV with Bibihossein Alegria. documented in this encounterOhio State East Hospital07-08-2024 NoteHNO ID: [id number] Author: WILLIAM MESSINA, DO Service: ? Author Type: Physician Type: Progress Notes Filed: 08/27/2023 14:47 Note Text: [facility] SECTION OF [facility] CARDIOLOGY [facility] OUTPATIENT VISIT DATE August 27, 2023 PRIMARY CARE PHYSICIAN: Claudine Durán [address] [place] [address] HISTORY OF PRESENT ILLNESS: Ms. Bustamante is [...] 116/68 Pulse 81 Ht 160 cm (5' 3) Wt 58.1 kg (128 lb) SpO2 99% [...] positive rheumatoid factor (HCC) 03/07/2015 Dr. Hurley ([facility]) Unspecified hemorrhoids without mention of complication Hemorrhoids PAST SURGICAL HISTORY Procedure Laterality Date COLONOSCOPY FLX DX W/COLLJ SPEC WHEN PFRMD 10/2003 Colonoscopy COLONOSCOPY FLX DX W/COLLJ SPEC WHEN PFRMD 05/18/2014 Colonoscopy COLONOSCOPY (more content not included)...[id number] History of Present illness Narrative* William Messina, DO - 08/27/2023 8:28 AM EDT Images from the original note were not included. [facility] SECTION OF [facility] CARDIOLOGY [facility] OUTPATIENT VISIT DATE August 27, 2023 PRIMARY CARE PHYSICIAN: Claudine Durán [address] [place] [address] HISTORY OF PRESENT ILLNESS: Ms. Bustamante is [...] 116/68 Pulse 81 Ht 160 cm (5' 3) Wt 58.1 kg (128 lb) SpO2 99% [...] positive rheumatoid factor (HCC) 03/07/2015 Dr. Hurley ([facility]) Unspecified hemorrhoids without mention of complication Hemorrhoids [...] SPINE FUSN,POST INTERBODY 2011 Dr. Armando at [facility]. Diskectomy and laminectomy PAST SURGICAL HISTORY [...] (FLONASE) 50 mcg/actuation nasal spray Use 1 Stephen in each nostril once daily. pantoprazole DR (PROTONIX) 40 mg tablet Take 1 tablet by mouth once daily. vit A,C,S-Stzt-Lnkfhc (OCUVITE PRESERVISION) 2,148 mcg-113 mg-45 mg-17.4mg tab [...] diarrhea for up to 7 days. William Messina, DO, FACC, FACOI Roving Changer, [facility] Ambulatory [facility]iology Roving Changer, [facility] Cardiac Rehabilitation Roving Changer, [facility] Cardiac Rehabilitation Roving Changer, [facility] Congestive Heart Failure Clinic Roving Changer, [facility] Ambulatory Cardiology Clinical Freight Breaker Profressor of Medicine, [facility] Staff Demolition Specialist, [place] and Edilma Pierce Department of Cardiovascular Medicine/Heart and Vascular [place], [facility] Please note: This note has been produced using speech recognition software and may contain errors related to that system including madelyn, punctuation, spelling, words, gender and phrases that may be inappropriate. documented in this encounterOhio State East Hospital07-05-2024 Telephone encounter Note * Telephone Encounter [...] Scheduled pt with Dr. Messina next week. [facility]07-05-[facility] Miscellaneous Notes* Telephone Encounter - Gracy [...] treating the underlying issue in the first place? Was seen on 08/22/23 by PCP for [...] since d/c from hospital. documented in this encounterOhio State East Hospital07-05-2024 Telephone encounter Note * Telephone Encounter - Shirley Mccloud - 08/24/2023 3:53 PM EDT Pt called back and would like to speak to the nurses about her issues. [facility]07-[facility] Telephone encounter Note* Telephone Encounter - Gracy Atkins RN - 08/24/2023 1:47 PM EDT Could someone please reach out the patient to make sure they are doing okay. Not sure why were giving Lasix if her hemoglobin is 5.4 and treating the underlying issue in the first place? Was seen on 08/22/23 by PCP for [...] how pt wasdoing since d/c from hospital. [facility]07-03-[facility] History of Present illness Narrative* Melissa Means, PAULA - 08/22/2023 4:20 PM EDT pcp agrees with information * Melissa Means RN - 08/22/2023 10:02 AM EDT patient had inr completed at [facility] patients inr is 1.1 (patients inr [...] not agree with recommendation documented in this encounterOhio State East Hospital07-03-2024 Instructions* Patient Instructions* Claudine Durán MD [...] 1 to 2 weeks. documented in this encounterOhio State East Hospital06-20-2024 History of Present illness Narrative* Jimbo Swanson APRN.CNS - 08/09/2023 11:42 AM EDT Continue with current Coumadin dose unchanged and check INR in 2 weeks * Melissa Means RN - 08/09/2023 10:19 AM EDT patient had inr completed at [facility] patients inr is 2.1 (patients inr [...] reading since dose change documented in this encounterOhio State East Hospital06-19-2024 History of Present illness Narrative* Twyla Cuevas APRN.TREE DOCTOR - 08/08/2023 2:37 PM EDT SUBJECTIVE Haydee [...] (FLONASE) 50 mcg/actuation nasal spray Use 1 Stephen in each nostril once daily. vit A,C,M-Hpoo-Tqdqlb (OCUVITE PRESERVISION) 2,148 mcg-113 mg-45 mg-17.4mg tab [...] 03/2019 and 08/2019 PFTs. Bronchiectasis Without Complication ([facility]) - 04/26/2019 Comment: Continue present management.PFTs as [...] Comment: Added automatically from request for surgery [id number] Ddd (Degenerative Disc Disease), Lumbar - 07/30/2017 Spondylolisthesis of Lumbar Region - 07/30/2017 History of Recurrent Deep Vein Thrombosis (Dvt) - 10/29/2016 Pain in Right Hip - 05/05/2016 Low Back Pain With Right-Sided Sciatica - 05/05/2016 Essential Hypertension - 03/07/2015 Rheumatoid Arthritis (Hcc) - 03/07/2015 Comment: Dr. 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 Twyla Cuevas APRN-SANTY documented in this encounterOhio State East Hospital06-18-2024 Telephone encounter Note * Telephone Encounter [...] CARMEN Viveros August 07, 2023 8:47 AM [facility] Miscellaneous Notes* Telephone Encounter - Thi [...] 07, 2023 8:47 AM documented in this encounterOhio State East Hospital06-11-2024 Telephone encounter Note * Telephone Encounter [...] LPN July 31, 2023 11:34 AM ] [facility] Miscellaneous Notes* Telephone Encounter - Lynne [...] 2023 11:34 AM ] documented in this encounterOhio State East Hospital06-10-2024 Telephone encounter Note * Telephone Encounter [...] Patel MA July 30, 2023 9:25 AM [facility] Miscellaneous Notes* Telephone Encounter - Danielle [...] 30, 2023 9:25 AM documented in this encounterOhio State East Hospital06-06-2024 History of Present illness Narrative* Lauren Bowens APRN.CNP - 07/26/2023 3:21 PM EDT Agree with below recommendations. Lauren Bowens APRN.CNP * Melissa Means RN - 07/26/2023 11:06 AM EDT patient had inr completed at [facility] patients inr is 1.6 (patients inr [...] not agree with recommendation documented in this encounterOhio State East Hospital06-03-2024 Telephone encounter Note * Telephone Encounter [...] in August and will discuss with him. [facility]06-03-[facility] Miscellaneous Notes* Telephone Encounter - Yesenia [...] advise, Lulu Quigley RN documented in this encounterOhio State East Hospital06-01-2024 Telephone encounter Note * Telephone Encounter [...] a day. Authorizing Provider: CLAUDINE DURÁN MD [facility]05-31-[facility]24 Telephone encounter Note* Telephone Encounter - [...] Please review and advise, Lulu Quigley RN [facility]05-29-2024 Telephone encounter Note* Telephone Encounter - Claudine Durán MD - 07/18/2023 1:17 PM EDT The following approved medication requests have been transmitted electronically. Requested Prescriptions Pending Prescriptions Disp Refills itraconazole (SPORANOX) 10 mg/mL solution 1200 mL 0 Sig: Take 20 mL by mouth two times a day. Claudine Durán MD [facility]05-29-2024 Miscellaneous Notes* Telephone Encounter - Claudine [...] you. Danielle Patel MA. documented in this encounterOhio State East Hospital05-28-2024 Telephone encounter Note * Telephone Encounter [...] Please advise. Thank you. Danielle Patel MA. [facility]-24-[facility] Telephone encounter Note* Telephone Encounter - Jimbo Swanson APRN.CNS - 07/13/2023 12:00 PM EDT OK please schedule with ortho [facility] Miscellaneous Notes* Telephone Encounter - Jimbo Swanson APRN.CNS - 07/13/2023 12:00 PM EDT OK please schedule with ortho * Telephone Encounter - Diana Evans LPN - 07/13/2023 9:17 AM EDT Patient aware of results and provider recommended follow up. Patient would like to see an orthopedic Provider here in [place] at the [facility]. Aware may need to be scheduled [...] her knee. Would recommend seeing orthopedist or employee welfare manager for this at her earliest convenience, check to see if prednisone is helping. Left message. documented in this encounterOhio State East Hospital05-24-2024 Telephone encounter Note * Telephone Encounter - Diana Evans LPN - 07/13/2023 9:17 AM EDT Patient aware of results and provider recommended follow up. Patient would like to see an orthopedic Provider here in [place] at the [facility]. Aware may need to be scheduled [...] pain and less edema. Diana Evans LPN [facility]05-23-2024 Telephone encounter Note* Telephone Encounter - Yesenia Weinstein LPN - 07/12/2023 3:44 PM EDT No answer. Left message for patient to call office and ask to speak to a nurse regarding Ultrasoundresults [facility]05-23-20[facility] Telephone encounter Note* Telephone Encounter - Jimbo Swanson APRN.CNS - 07/12/2023 3:14 PM EDT No thrombophlebitis or DVT. Does have fluid collection at her knee. Would recommend seeing orthopedist or employee welfare manager for this at her earliest convenience, check to see if prednisone is helping. Left message. [facility] History of Present illness Narrative* Jimbo Swanson APRN.CNS - 07/12/2023 3:08 PM EDT Continue Coumadin dose unchanged and check INR in 2 weeks * Melissa Means, PAULA - 07/12/2023 10:12 AM EDT patient had inr completed at [facility] patients inr is 1.8 (patients inr [...] reading since dose change documented in this encounterOhio State East Hospital05-21-2024 History of Present illness Narrative* Jimbo Swanson APRN.RPG PROGRAMMER - 07/10/2023 1:53 PM EDT SUBJECTIVE: RSV [...] bicuspid valve, lung nodule bronchiectasis and COPD. Body Shop Floorperson: Florence Collins MD, for follow-up of lung nodules bronchiectasis. Noted are a likely etiology for underlying bronchiectasis. Demolition Specialist: William GOTTI, aortic stenosis. Thermostat Maker: [facility]. Reports currently not taking Humira or methotrexate due to histoplasmosis. Infectious disease Dr. Hart, August appointment. She was seen by his PCP in May 2023 [facility]. She was [...] fluticasone (FLONASE) 50 mcg/actuation nasal spray^Use 1 Stephen in each nostril once daily.^Disp: 3 Each^Rfl: 3 vit A,C,U-Crik-Erpuyn (OCUVITE PRESERVISION) 2,148 mcg-113 mg-45 mg-17.4mg tab^Take [...] Diverticulosis DVT, recurrent, lower extremity, acute ([facility]) 12/10/2014 Esophageal reflux Hiatal hernia 02/25/2018 Hypertension Lung nodule Personal history of unspecified urinary disorder Rheumatoid arthritis involving multiple sites with positive rheumatoid factor (HCC) 03/07/2015 Dr. Hurley ([facility]) Unspecified hemorrhoids without mention of complication Hemorrhoids [...] Level: 4 - Moderate documented in this encounterOhio State East Hospital05-16-2024 History of Present illness Narrative* Melissa Means RN - 07/05/2023 4:27 PM EDT PATIENT NOTIFIED OF INFORMATION * Jimbo Swanson APRN.CNS - 07/05/2023 2:21 PM EDT Agree hold Coumadin today and then take 5 mg daily starting tomorrow and check INR in 1 week * Melissa Means RN - 07/05/2023 1:48 PM EDT patient had inr completed at [facility] patients inr is 3.5 (patients inr range is 1.7-2.2) patient is currently taking 5mg Mon,Wed and 7.5mg all other days patients last dose change unknown as this is the dose she was told at [place] discharge patient has had no changes in medication and no missed doses and no change in diet recommend: patient hold dose today and then go to 5mg daily and recheck in 1 week patient has been scheduled for a 1 week follow up inr on 07/12/23 please review and advise on recommendation documented in this encounterOhio State East Hospital05-16-2024 History of Present illness Narrative* Ilda Miller RN - 07/05/2023 4:00 PM EDT [facility] Telephonic Outreach Provider Action/SHAYNE N/A Contacted for: Engagement Last questionnaire completed: 03/13/23 My Chart reminder letter sent 04/16/23 No response to date to My Chart questionnaire. Contact made with patient: No, left message. Ilda Miller RN July 05, 2023 4:04 PM documented in this encounterOhio State East Hospital05-13-2024 Telephone encounter Note * Telephone Encounter [...] 10/11/2023 Please advise. Thank you. CARMEN Viveros. [facility] Miscellaneous Notes* Telephone Encounter - Thi [...] Thank you. CARMEN Viveros. documented in this encounterOhio State East Hospital05-13-2024 Telephone encounter Note * Telephone Encounter [...] Please advise. Thank you. Danielle Patel MA. [facility]-13-20[facility] Miscellaneous Notes* Telephone Encounter - Danielle [...] you. Danielle Patel MA. documented in this encounterOhio State East Hospital04-23-2024 Telephone encounter Note * Telephone Encounter - Brittany Cedillo LPN - 06/12/2023 2:59 PM EDT Pt has not reviewed the my chart message. Message left to her home number to either review the my chart message or call back to spoke to a nurse. [facility] Miscellaneous Notes* Telephone Encounter - Brittany [...] Thank you. Dionne Nunez. documented in this encounterOhio State East Hospital04-19-2024 Telephone encounter Note * Telephone Encounter - Brittany Cedillo LPN - 06/08/2023 10:05 AM EDT Pt notified via my chart. [facility] Telephone encounter Note* Telephone Encounter - [...] two times a day. Claudine Durán MD [facility]04-18-[facility] Telephone encounter Note* Telephone Encounter - [...] advise. Thank you. Maritza Preston LPN. Yes [facility]04-18-[facility] Telephone encounter Note* Telephone Encounter - [...] found Please advise. Thank you. Dionne Nunez. [facility]-16-[facility] Instructions* Patient Instructions* Claudine Durán MD - 06/05/2023 3:50 PM EDT Consider seeing Dr. Orellana's GI partner for follow up on elevated liver enzymes. documented in this encounterOhio State East Hospital04-16-2024 History of Present illness Narrative* Claudine Durán MD - 06/05/2023 3:28 PM EDT This note was created using WorkCastriter. Subjective Haydee Bustamante is a 78 year old female. Patient presents with: Discharge Skilled Rehab: Discharged from [facility] SUBJECTIVE: Haydee Bustamante is a 78 year old year old lady here today for follow up appointment for review of medical conditions after in [facility] being in TCU after hospitalization. Did well with PT/OT ST at TCU at [facility] noted for swallowing--no problems with swallowing now. Gastric ulcer--was not aware; also anemia 04/12 Hg 10.1 DVT noted bilateral; pain resolved. Wears compression wrappings. Stocking--helped to have marking for heel COPD and histo--chronic cough no worse than usual. Needed to replace Dulera which replaced Symbicort; needed refill for albuterol. PAST MEDICAL HISTORY Diagnosis Date Anemia Bone marrow involvement with histoplasmosis Bronchiectasis ([facility]) COPD (chronic obstructive pulmonary disease) ([facility]) Disseminated histoplasmosis Colitis, immunosuppression, 01/2018. Diverticulosis of colon (without mention of hemorrhage) Diverticulosis DVT, recurrent, lower extremity, acute ([facility]) 12/10/2014 Esophageal reflux Hiatal hernia 02/25/2018 Hypertension Lung nodule Personal history of unspecified urinary disorder Rheumatoid arthritis involving multiple sites with positive rheumatoid factor ([facility]) 03/07/2015 Dr. Hurley ([facility]) Unspecified hemorrhoids without mention of complication Hemorrhoids [...] (FLONASE) 50 mcg/actuation nasal spray Use 1 Stephen in each nostril once daily. albuterol HFA (PROAIR HFA) 90 mcg/actuation inhaler Inhale 2 Puffs as instructed every 4 hours as needed. vit A,C,X-Orte-Vewgfm (OCUVITE PRESERVISION) 2,148 mcg-113 mg-45 mg-17.4mg tab [...] the date of the service which included izor-vd-dmpg patient care, completing clinical documentation, obtaining and/or reviewing separately obtained history, performing a medically appropriate examination, counseling and educating the patient/family/caregiver, ordering medications, tests, or procedures, independently interpreting results (not separately reported), and communicating results to the patient/family/caregiver. Claudine Durán MD documented in this encounterOhio State East Hospital03-11-2024 Miscellaneous Notes* Telephone Encounter - Brittany Cedillo LPN - 04/30/2023 11:09 AM EDT Rec'd rec'd from [facility] pt to be d/c from [facility] to [facility] private pay for therapy documented in this encounterOhio State East Hospital03-08-2024 Discharge summary Author Edinson Irvin [facility] April 27, 2023 1:24pm Note Date/Time April 27, 2023 1:24 pm [facility] Medical Records Department [address] [place] [address] Transfer to [facility] MR#: [id number] Acct: [id number] Name: HAYDEE BUSTAMANTE Rep #:[id number] : 1945 77 From: Edinson Irvin MD PCP: Dr. Claudine Durán MD Status:AD M IN Certification of patient admission REQUIRED AT TIME OF ADMISSION. I CERTIFY THAT POST-HOSPITAL ECF SERVICES ARE REQUIRED TO BE GIVEN ON AN IN-PATIENT BASIS BECAUSE OF THE ABOVE NAMED PATIENT'S NEED FOR CUSTODIAL CARE ON A CONTINUING BASIS FOR THE CONDITION(S) FOR WHICH HE/SHE WAS RECEIVINGIN-PATIENT HOSPITAL SERVICES PRIOR TO HIS/HER TRANSFER TO THE F. 04/27/23 1324<Electronically signed by Edinson Irvin MD> [...] Reason for Your Visit: Debility. Attending Provider: Albaro,Edinson Chi Primary Care Provider: Claudine Durán Instructions Additional Instructions / Restrictions: Discharge 04/30/2023 to [facility], part B [facility]. Discharge Orders/Prescriptions Prescriptions: New citalopram 10 mg [...] Qty: 0 0RF fluticasone propionate 50 mcg/actuation Stephen,Suspension 1 spray NASAL DAILY Qty: 0 0RF [...] applicable): CC: Dr. Claudine Durán MD ~ [facility] Work Phone: 1(623) 328-486303-08-2024 Discharge summary Author Edinson [facility] April 27, 2023 1:23pm Note Date/Time April 27, 2023 1:17 pm [facility] Medical Records Department [address] [place] [id number] Discharge Summary 04/27/23 1316 MR#: [id number] Acct: [id number] Name: HAYDEE BUSTAMANTE Rep #:[id number] : 1945 77 From: Edinson Irvin MD PCP: Dr. Claudine Durán MD Status:AD M IN Location: [facility] TCU03-1 Providers Date of Admission: 04/05/23 Primary Care Physician: Dr. Claudine Durán MD Consultations 04/10/23 10:44 Consult: Onc/Wound/director staffing Routine Comment: Reason for Consult:: bilateral lowers [...] 1 tab PO DAILY supplement 03/19/23 vitamins A,C,I-adbl-fuebod 2,148 mcg-113 mg-45 mg-17.4 mg tablet (PreserVision [...] DVT right lower extremity. Discharge 04/30/2023 to [facility] private [facility], part B therapies. Physical Exam Const alert [...] Uncontrolled pain Additional Instructions: Discharge 04/30/2023 to [facility], private pay, part B therapies. Meaningful Use Info Meaningful Use Diagnoses (Choose all that apply): None applicable Discharge Plan Admission Admit Date/Time: 04/05/23 13:33 Primary Reason for Your Visit: Debility. Attending Provider: Edinson Irvin Chi Primary Care Provider: Claudine Durán Instructions Additional Instructions / Restrictions: Discharge 04/30/2023 to [facility], [facility], part B therapies. Discharge Orders/Prescriptions Prescriptions: New [...] Qty: 0 0RF fluticasone propionate 50 mcg/actuation Stephen,Suspension 1 spray NASAL DAILY Qty: 0 0RF [...] Durán MD; Dr. Edinson Irvin MD~ Signed [facility] Work Phone: 1(650) 869-811602-21-2024 History and physical note Author [facility] April 11, 2023 11:37am Note Date/Time April 05, 2023 8:06pm [facility] Medical Records Department [address] [place] [address] History & Physical Exam 04/05/231955 MR#: [id number] Acct: [id number] Name: HAYDEE BUSTAMANTE Rep #:[id number] : 1945 77 From: Edinson Irvin MD PCP: Dr. Claudine Durán MD Status:AD M IN Location: [facility] TCU03-1 HPI - General General Date of Admission: 04/05/23 Date of Service: 04/05/23 Chief Complaint: Here for rehabilitation. HPI Narrative 03/31/2023 HAYDEE BUSTAMANTE, is a 77 Female who presents to [facility] ED with edema. FTT, bilateral lower extremity edema, right lower extremity redness. Unable to care for self at home, fell, could not get up. On floor for hours. Worsening right leg pain. WBC 19.4, Hemoglobin 8.3, INR 1.3, K 3.2, BNP okay, CK okay. Chest X-ray negative, X-ray right tibia/fibula negative. Clindamycin IV for right lower extremity cellulitis. 03/31/2023 Admit to [facility]. Levaquin, Doppler right lower extremity for [...] rehabiliation, strengthening, prior to discharge home alone. [facility] Medical History (Updated 04/05/23 @ 20:05 by [...] Q24H 03/19/23 [History Last Taken Unknown] vitamins A,C,X-ryrh-tzbbrz 2,148 mcg-113 mg-45 mg-17.4 mg tablet (PreserVision [...] MD; Dr. Edinson Irvin MD ~* Signed [facility] Work Phone: 1(873) 174-404802-19-2024 Procedure [facility] 04-06-2023 Progress note Author Amparo Marina [facility] April 06, 2023 3:02pm Note Date/Time April 06, 2023 2:39pm [facility] Medical Records Department [address] [place] [address] Progress Note - Pharmacy 04/06/23 1438 MR#: [id number] Acct: [id number] Name: HAYDEE BUSTAMANTE Rep #:[id number] : 1945 77 From: Amparo Marina PCP: Dr. Claudine Durán MD Status:AD M IN Location: [place] [address]-1 Documented by User: Amparo Marina 04/06/23 15:02 [...] 04/06/23 10:00 04/06/23 08:50 Fluticasone 0.05% 1 Stephen Nasal.Sry NASAL 1 spray DAILY MARGARETTE Administration Gabapentin 300 mg 04/05/23 22:00 04/06/23 08:52 Gabapentin 300 Mg Capsule PO 300 mg Q12 MARGARETTE Administration Itraconazole 200 mg 04/05/23 17:00 04/06/23 08:48 Itraconazole 100 Mg Capsule PO 200 mg BIDCM MARGARETTE Administration Magnesium Citrate 300 ml 04/05/23 20:14 Magnesium Citrate 300 Ml PO DAILY PRN Constipation Multivitamins 1 tablet 04/06/23 08:00 04/06/23 08:49 Multivitamins,Therapeutic Tablet PO 1 tablet DAILYCM MARGARETTE Administration Multivitamins/Minerals 2 cap 04/05/23 17:00 04/06/23 08:48 Multivitamin (Healthy Eyes) Capsule PO 2 cap BIDCM MARGARETTE Administration Oxycodone HCl 5 mg 04/05/23 14:09 Oxycodone 5 Mg Tablet PO Q4H PRN PRN Pain Score 4-10 Pantoprazole Sodium 40 mg 04/05/23 22:00 04/06/23 08:49 Pantoprazole Sodium 40 Mg Tablet PO 40 mg BID MARGARETTE Administration Potassium Chloride 20 meq 04/07/23 08:00 Potassium Chloride Oral Tablet 20 Meq PO DAILYCM [facility] Senna/Docusate Sodium 1 tablet 04/05/23 22:00 04/06/23 [...] <Electronically signed by Amparo Marina> Amparo Marina Cosign Signature (if applicable): 04/06/23 1459 <Electronically signed by Edinson Irvin MD> CC: ~ Signed [facility] Work Phone: 1(752) 158-860302-15-2024 Consult note Author Alcides Abel [facility] April 05, 2023 10:22am Note Date/Time April 04, 2023 4:12pm [facility] [address] [place] [address] Consultation - Oncology IP 04/04/23 1610 MR#: [id number] Acct: [id number] Name: HAYDEE BUSTAMANTE Rep #:[id number] : 1945 77 From: Alcides tavares MD PCP: Dr. Claudine Durán MD Status:AD M IN Location: [place] [address] Assessment & Plan Assessment/Plan (1) Thrombocytopenia: Status: Acute Code(s): D69.6 - Thrombocytopenia, unspecified Plan: Acute moderately severe onset is in March 2023 no active bleeding and no evidence for recent thrombosis no recent use of heparin. She has a remote history of venous thromboembolic disease and was on Coumadin until recent hospitalization at [facility] in early March 2023. Has [...] prophylaxis.. 4. Patient's is an established at [facility] and therefore I advised continued follow-up there. Impression and plan discussed with the patient and her friend. Impression and plan discussed with hospitalist. Alcides Abel MD Register Clerk, [facility] Divisions of Medical Oncology & Hematology Department of Internal Medicine [place] [address] This note was generated using a voice [...] an acute thrombocytopenia (see lab section for communications representative platelet counts) with no active bleeding or thrombosis. The patient has multiple chronic medical problems and multiple hospitalizations between [facility] and [facility] and is presenting with failure to thrive at home. 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 She has a past history of venous thromboembolic disease and was on Coumadin until recently. She has chronic lower extremities edema and ulcers for which she has received multiple courses of antibiotics. In early March 2023 she was seen at [facility] and transferred to [facility] with suspected bowel perforation and was treated conservatively with antimicrobials. On the current admission she was receiving Cipro and Flagyl in addition to itraconazole s that was started around February 2023. In her last admission to [facility] in March 2023 Coumadin was held, because not clear and patient as far as she can tell did not receive any heparin injections . Advanced Directives Power of Coiled Tubing Supervisor: Yes Living Will: Yes [facility] Medical History (Updated 04/05/23 @ 10:09 by [...] Q24H 03/19/23 [History Last Taken Unknown] vitamins A,C,C-ozyj-okywgg 2,148 mcg-113 mg-45 mg-17.4 mg tablet (PreserVision [...] (Auto) 76.5 H, Lymph % (Auto) 9.4L, [place] % (Auto) 8.3, Eos % (Auto) 4.9, [...] Plt Count 134 L Absolute Neuts (auto) 0203/28/23 03/28/23 06:47 16:37 16:37 WBC 14.1 H [...] MD; Dr. Jorgito Agarwal DO ~ Signed [facility] Work Phone: 1(326) 552-192402-14-2024 Progress note Author Jasmyn [facility] April 04, 2023 6:11pm Note Date/Time April 04, 2023 6:11pm [facility] Medical Records Department [address] [place] [address] Progress Note - Hospitalist 04/04/23 1807 MR#: [id number] Acct: [id number] Name: HAYDEE BUSTAMANTE Rep #:[id number] : 1945 77 From: Jasmyn Chan DO PCP: Dr. Claudine Durán MD Status:AD M IN Location: [place] [address]- Reason for Visit Reason for Visit: Diagnoses [...] (Auto) 76.5 H, Lymph % (Auto) 9.4L, [place] % (Auto) 8.3, Eos % (Auto) 4.9, [...] 73.8 H, Lymph % (Auto) 11.4 L, [place] % (Auto) 9.8, Eos % (Auto) 4.2, [...] 25 minutes Charges/Coding Visit Charges Inpatient E&M: 89050 Subs Hosp L1 04/04/23 1811 <Electronically signed by Jasmyn Chan DO> Cosigner Signature (if applicable): CC: ~ Signed [facility] Work Phone: 1(512) 641-458302-13-2024 Progress note Author Mathew Orellana [facility] April 03, 2023 5:53pm Note Date/Time April 03, 2023 5:53pm [facility] Medical Records Department [address] [place] [address] Progress Note - GI 04/03/23 1750 MR#: [id number] Acct: [id number] Name: HAYDEE BUSTAMANTE Rep #:[id number] : 1945 77 From: Mathew Orellana DO PCP: Dr. Claudine Durán MD Status:AD M IN Location: [place] [address] Subjective Subjective Patient is doing well without [...] Protocol: Document 04/01/23 12:03 (Rec: 04/01/23 12:03 [id number]) Nutrition Malnutrition Evidence of Malnutrition Exists Yes [...] (Auto) 82.5 H, Lymph % (Auto) 6.5L, [place] % (Auto) 7.5, Eos % (Auto) 2.7, [...] PE),Recent diagnosis Histoplasmosis, recent 03/21/33 evaluation at [facility] with transfer to [facility] secondary to concerns for complex bowel [...] needs any acid suppression she can get integration solution architect fate or H2 receptor pietro. Charges/Coding Visit Charges Inpatient E&M: 73800 Subs Hosp L3 04/03/23 6302 <Electronically signed by Mathew Orlelana DO> Cosigner Signature (if applicable): CC: ~ Signed [facility] Work Phone: 1(820) 577-324502-13-2024 Progress note Author Jasmyn Chan [facility] April 03, 2023 5:36pm Note Date/Time April 03, 2023 5:36pm [facility] Medical Records Department [address] [place] [address] Progress Note - Hospitalist 04/03/23 1730 MR#: [id number] Acct: [id number] Name: HAYDEE BUSTAMANTE Rep #:[id number] : 1945 77 From: Jasmyn Chan DO PCP: Dr. Claudine Durán MD Status:AD M IN Location: [place] [address] Reason for Visit Reason for Visit: Diagnoses [...] Protocol: Document 04/01/23 12:03 (Rec: 04/01/23 12:03 [id number]) Nutrition Malnutrition Evidence of Malnutrition Exists Yes [...] (Auto) 82.5 H, Lymph % (Auto) 6.5L, [place] % (Auto) 7.5, Eos % (Auto) 2.7, Baso % (Auto) 0.2, Absolute Neuts (auto)5.2, Absolute Lymphs (auto) 0.41 L, Nucleated RBC % 0, Differential Comment COMMENT, Diff Path Review June, Platelet Estimate MKD DEC, Anisocytosis 1+, PT [...] 25 minutes Charges/Coding Visit Charges Inpatient E&M: 30917 Subs Hosp L1 04/03/23 1736 <Electronically signed by Jasmyn Chan DO> Cosigner Signature (if applicable): CC: ~ Signed [facility] Work Phone: 1(906) 638-541802-12-2024 Progress note Author [facility]yn [facility] April 02, 2023 8:07pm Note Date/Time April 02, 2023 8:07pm [facility] Medical Records Department [address] [place] [address] Progress Note - Hospitalist 04/02/232000 MR#: [id number] Acct: [id number] Name: HAYDEE BUSTAMANTE Rep #:[id number] : 1945 77 From: Jasmyn Chan DO PCP: Dr. Claudine Durán MD Status:AD M IN Location: [place] [address] Reason for Visit Reason for Visit: Diagnoses [...] Active Protocol: Document 04/01/23 12:03 AG (Rec: 04/01/23 12:03 [id number]) Nutrition Malnutrition Evidence of Malnutrition Exists Yes [...] (Auto) 86.6 H, Lymph % (Auto) 6.4L, [place] % (Auto) 5.4, Eos % (Auto) 0.6, [...] acute debility-patient may need placement in a assisted facility for short-term rehab services. #6 histoplasmosis-patient is currently on itraconazole Total clinical time spent by myself addressing the patient's medical issues, reviewing all of her data, and collaborating with patient's care team: 25 minutes Charges/Coding Visit Charges Inpatient E&M: 83765 Subs Hosp L1 04/02/232006 <Electronically signed by Jasmyn Chan DO> Cosigner Signature (if applicable): CC: ~ Signed [facility] Work Phone: 1(427) 397-367402-12-2024 Miscellaneous Notes* Telephone Encounter - Claudine Durán MD - 04/02/2023 7:52 PM EST Noted regarding fall. * Telephone Encounter - Doretha Miller RN - 04/02/2023 9:44 AM EST Friend answered pt's phone, and after informed this is a nurse in pcp office, friend reported pt was admitted into [facility] PCU after a fall on Sat. Friend does not think there was an injury from fall. Friend reports patient was in [facility] for 1 week, and has been in and out of ER several times since discharge. Advised we would f/u with pt once discharged from [facility]. * Telephone Encounter - Claudine Durán MD - 04/01/2023 4:51 PM EST Noted Patient had recent labs done during admission (was at [facility] and discharged 03/25) Noted alk phos [...] 02/27/2023 1:48 PM EST Faxed received from [facility] Melissa Dorsey TREE DOCTOR stating that the liver enzymes are worse. Please review copy of labs and advise. [facility] Consult note Author Mathew Friend [facility] April 02, 2023 5:06pm Note Date/Time April 02, 2023 5:00pm [facility] Medical Records Department [address] [place] [address] Consultation - GI 04/01/23 1658 MR#: [id number] Acct: [id number] Name: HAYDEE BUSTAMANTE Rep #:[id number] : 1945 77 From: Mathew Orellana DO PCP: Dr. Claudine Durán MD Status:AD M IN Location: [place] [id number] HPI Consult Data Date of Consult: 04/01/23 HPI Narrative Reason for Consultation: Anemia HPI Narrative: HAYDEE BUSTAMANTE, is a 77-year-old female history of COPD, Severe . GERD. DVT and PEon Coumadin, histoplasmosis of the lung, RA who presented to [facility] ED 03/31/2023 with bilateral lower extremity edema. She was seen here 03/28/2023 with lower extremity edema. She was initially seen here 03/26/2023 for shortness of breath and inability to care for herself at home after a recent hospital stay at [facility] from which she was discharged on [...] her because her hemoglobin decreased to 6.5. [facility] Medical History (Updated 04/02/23 @ 17:05 by [...] Q24H 03/19/23 [History Last Taken Unknown] vitamins A,C,R-qajz-gysvuj 2,148 mcg-113 mg-45 mg-17.4 mg tablet (PreserVision [...] Protocol: Document 04/01/23 12:03 (Rec: 04/01/23 12:03 [id number]) Nutrition Malnutrition Evidence of Malnutrition Exists Yes [...] (Auto) 86.6 H, Lymph % (Auto) 6.4L, [place] % (Auto) 5.4, Eos % (Auto) 0.6, [...] Physician: Claudine Durán M.D. Performed By: Dany Kramer, [facility] Assessment & Plan Assessment/Plan (1) Cellulitis: (2) Anemia: PLAN: Plan The patient is a 77 y/o F w/ PMHx: GERD, Rheumatoid Arthritis, Hx VTE (DVT, PE),Recent diagnosis Histoplasmosis, recent 03/21/33 evaluation at [facility] with transfer to [facility] secondary to concerns for complex bowel [...] of 3 Charges/Coding Visit Charges Inpatient E&M: 59283 Init Hosp 04/02/23 1706 <Electronically signed by Mathew Friend DO> Cosigner Signature (if applicable): CC: Dr. Alisa Mathew MD; Dr. Claudine Durán MD; Dr. Laine Veras MD~ Signed [facility] Work Phone: 1(257) 786-242702-12-2024 Procedure [facility] 04-02-2023 Procedure [facility]02-11-2024 Miscellaneous Notes* Telephone Encounter - Claudine Durán MD - 04/01/2023 4:36 PM EST See MyChart reply documented in [facility]24 Progress note Author Alisa Mathew [facility] April 01, 2023 12:08pm Note Date/Time April 01, 2023 6:46am [facility] Medical Records Department [address] [facility] [place] [address] Progress Note - Hospitalist 04/01/23 0642 MR#: [id number] Acct: [id number] Name: HAYDEE BUSTAMANTE Rep #:[id number] : 1945 77 From: Alisa Mathew MD PCP: Dr. Claudine Durán MD Status:AD M IN Location: [place] [address] 1 Reason for Visit Reason for Visit: Diagnoses [...] 90.8 H, Lymph % (Auto) 3.0 L, [place] % (Auto) 5.0, Eos % (Auto) 0.1, [...] 88.5 H, Lymph % (Auto) 4.7 L, [place] % (Auto) 5.6, Eos % (Auto) 0.2, [...] 19:30 EST Reading Location ID and State: [employer] / [place] Tel , Service support , Chest X-Ray 03/31/23 18:32 IMPRESSION: No change from prior study. Electronically Signed: Michael Galarza MD at 19:29 EST Reading Location ID and State: [employer] / [place] Tel , Service support , Ankle X-Ray 03/31/23 22:10 IMPRESSION: Soft tissue swelling without obvious fracture. Electronically Signed: Michael Galarza MD at 23:54 EST Reading Location ID and State: [employer] / [place] Tel , Service support , Physical Exam [...] PE),Recent diagnosis Histoplasmosis, recent 03/21/33 evaluation at [facility] with transfer to [facility] secondary to concerns for complex bowel [...] therapy with planned outpatient work-up, discharged from [facility] 03/25/23 with decline upon return to home, inability to safely care for self prompting presentation to the [facility] ED on 03/26/23 for SNF placement needs but improved and declined SNF placement again who now re-presents to the [facility] ED on 03/31/23 with history of [...] follow-up as previously arranged per Surgery team [facility]. #11. Rheumatoid arthritis: Patient outpatient on Humira, methotrexate and leucovorin however this has been continued to be held secondary to a recent hospitalization in [facility] with disseminated histoplasmosis and concern for bowel perforation/colitis, resume once allowed per infectious disease. #12. Valvular heart disease with aortic stenosis with recent diagnosis moderatepericardial effusion: Recent evaluation in [facility], no intervention but close observation for [...] Code status. Charges/Coding Visit Charges Inpatient E&M: 79107 Subs Hosp L3 04/01/23 1208 <Electronically signed by Alisa Mathew MD> Cosigner Signature (if applicable): CC: ~ Signed [facility] Work Phone: 1(923) 669-861502-10-2024 History and physical note Author Laine Veras [facility] March 31, 2023 8:59pm Note Date/Time March 31, 2023 8:20pm [facility] Medical Records Department [address] [place] [address] H&P Exam - Hospitalist 03/31/232011 MR#: [id number] Acct: [id number] Name: HAYDEE BUSTAMANTE Rep #:[id number] : 1945 77 From: Laine Veras MD PCP: Dr. Claudine Durán MD Status:AD M IN [facility] HPI - General General Date of Admission: 03/31/23 Date of Service: 03/31/23 Chief Complaint: BLE edema and weeping HPI Narrative HAYDEE BUSTAMANTE, is a 77-year-old female history of COPD, Severe . GERD. DVT and PEon Coumadin, histoplasmosis of the lung, RA who presented to [facility] ED 03/31/2023 with bilateral lower extremity edema. She was seen here 03/28/2023 with lower extremity edema. She was initially seen here 03/26/2023 for shortness of breath and inability to care for herself at home after a recent hospital stay at [facility] from which she was discharged on [...] is unsure if she's taking her coumadin [facility] Medical History (Updated 03/31/23 @ 20:42 by [...] Q24H 03/19/23 [History Last Taken Unknown] vitamins A,C,Q-glsv-vmvmdz 2,148 mcg-113 mg-45 mg-17.4 mg tablet (PreserVision [...] 90.8 H, Lymph % (Auto) 3.0 L, [place] % (Auto) 5.0, Eos % (Auto) 0.1, [...] for bowel perf treated conservatively -[facility] -s/p cipro and flagyl, no present abd complaints # Disseminated histoplasmosis -Continue itraconazole twice daily -Patient to follow-up with a Dr. Hart in 3 months # Recent COVID-19 -Tested positive here end of February -No resp complaints #Hx COPD -Continue inhalers #Hx and mod pericardial effusion -Seen at [facility] and pt advised to f/u outpt [...] documentation, 78Minutes Charges/Coding Visit Charges Inpatient E&M: 81700 Init Hosp L3 03/31/232058 <Electronically signed by Laine Veras MD> Cosigner Signature (if applicable): CC: Dr. Claudine Durán MD; Dr. Laine Veras MD~ Signed [facility] Work Phone: 1(359) 928-880102-10-2024 Discharge summary Author Martín Cornejo [facility] March 31, 2023 8:00pm Note Date/Time March 31, 2023 5:48pm [facility] Medical Records Department [address] [facility] [place] [address] Emergency Department Summary 03/31/23 MR#: [id number] Acct: [id number] Name: HAYDEE BUSTAMANTE Rep #:[id number] : 1945 77 From: Martín Cornejo DO PCP: Dr. Claudine Durán MD Status:RE G ER Location: ED HPI <MEENU Leger - Last Filed: 03/31/23 19:55> History of Present Illness Chief Complaint: Edema Narrative Narrative: Patient is a 77-year-old female with a long history of lower leg edema, history of COPD, patient is on Coumadin, histoplasmosis, presenting to the [facility] apartment for failure to thrive, worsening [...] to go to a facility for rehab. [facility] <MEENU Leger - Last Filed: 03/31/23 19:55> [facility] Medical History Colitis COPD (chronic obstructive pulmonary [...] Q24H 03/19/23 [History Last Taken Unknown] vitamins A,C,J-ryxv-xqwula 2,148 mcg-113 mg-45 mg-17.4 mg tablet (PreserVision [...] Blood Pressure Mean 65 Pulse Ox 100 [facility] <Frederick AlmazanMEENU - Last Filed: 03/31/23 19:55> [facility] Lab Data Labs: Laboratory Results - last 24 hr 03/31/23 18:12 WBC 19.4 H RBC 2.87 L Hgb 8.3 L Hct 24.9 L MCV 86.8 MCH 28.9 MCHC 33.3 RDW Std Deviation 75.1 H RDW Coeff of [place]ino 24.1 H Plt Count 95 L MPV 10.4 Immature Gran % (Auto) 1.000 H Neut % (Auto) 90.8 H Lymph % (Auto) 3.0 L [place] % (Auto) 5.0 Eos % (Auto) 0.1 [...] Cornejo, DO - Last Filed: 03/31/23 20:00> [facility] Narrative Medical decision making narrative: [...] hospitalist. This patient was seen with a PA/WHISKEY FILTERER Individually assessed they patient including history and physical. I have reviewed everything on the chart that is availableand agree with the documentation provided by the PA/WHISKEY FILTERER including discussion about the assessment, treatment plan, [...] 90.8 H Lymph % (Auto) 3.0 L [place] % (Auto) 5.0 Eos % (Auto) 0.1 [...] to thrive Disposition Disposition: Acute Care Hospital [facility] What to do if you have Problems For any increased pain, shortness of breath, bleeding, nausea or vomiting, chestpain, or any unexpected problems, contact your Primary Care Provider. Call [facility] ([phone]) or report to the closest Emergency Room. Call 911 if necessary. 03/31/231999 <Electronically signed by Martín Cornejo DO> Cosigner Signature (if applicable): 03/31/231954 <Electronically signed by Frederick CORRIGAN> CC: Dr. Claudine Durán MD ~ Signed [facility] Work Phone: 1(405) 513-293002-10-2024 Discharge summary Author Martín Cornejo [facility] March 31, 2023 8:00pm Note Date/Time March 31, 2023 5:48pm [facility] Medical Records Department [address] [place] [address] Emergency Department Summary 03/31/23 MR#: [id number] Acct: [id number] Name: HAYDEE BUSTAMANTE Rep #:[id number] : 1945 77 From: Martín Cornejo DO PCP: Dr. Claudine Durán MD Status:RE G ER Location: ED HPI <MEENU Leger - Last Filed: 03/31/23 19:55> History of Present Illness Chief Complaint: Edema Narrative Narrative: Patient is a 77-year-old female with a long history of lower leg edema, history of COPD, patient is on Coumadin, histoplasmosis, presenting to the [facility] for failure to thrive, worsening swelling to [...] to go to a facility for rehab. [facility] <MEENU Leger - Last Filed: 03/31/23 19:55> [facility] Medical History Colitis COPD (chronic obstructive pulmonary [...] Q24H 03/19/23 [History Last Taken Unknown] vitamins A,C,Q-efju-imioqa 2,148 mcg-113 mg-45 mg-17.4 mg tablet (PreserVision [...] <MEENU Leger - Last Filed: 03/31/23 19:55> [facility] Lab Data Labs: Laboratory Results - last 24 hr 03/31/23 18:12 WBC 19.4 H RBC 2.87 L Hgb 8.3 L Hct 24.9 L MCV 86.8 MCH 28.9 MCHC 33.3 RDW Std Deviation 75.1 H RDW Coeff of Catarino 24.1 H Plt Count 95 L MPV 10.4 Immature Gran % (Auto) 1.000 H Neut % (Auto) 90.8 H Lymph % (Auto) 3.0 L [place] % (Auto) 5.0 Eos % (Auto) 0.1 [...] Cornejo, DO - Last Filed: 03/31/23 20:00> [facility] Narrative Medical decision making narrative: [...] hospitalist. This patient was seen with a PA/WHISKEY FILTERER Individually assessed they patient including history and physical. I have reviewed everything on the chart that is availableand agree with the documentation provided by the PA/WHISKEY FILTERER including discussion about the assessment, treatment plan, [...] 90.8 H Lymph % (Auto) 3.0 L [place] % (Auto) 5.0 Eos % (Auto) 0.1 [...] failure to thrive Disposition Disposition: Acute Care [facility] What to do if you have Problems For any increased pain, shortness of breath, bleeding, nausea or vomiting, chestpain, or any unexpected problems, contact your Primary Care Provider. Call [facility] ([phone]) or report to the closest Emergency Room. Call 911 if necessary. 03/31/231999 <Electronically signed by Martín Cornejo DO> Cosigner Signature (if applicable): 03/31/231954 <Electronically signed by Frederick SORTOC> CC: Dr. Claudine Durán MD ~ Signed [facility] Work Phone: 1(206) 923-789902-07-2024 Discharge summary Author Etienne Thacker [facility] March 28, 2023 8:37pm Note Date/Time March 28, 2023 5 :11pm [facility] Medical Records Department [address] [place] [address] Emergency Department Summary 03/28/23 MR#: [id number] Acct: [id number] Name: HAYDEE BUSTAMANTE Rep #:[id number] : 1945 77 From: Etienne Thacker MD [...] Prior similar symptoms: Yes Recent Illness/Hospitalization: Yes [facility] Medical History Colitis COPD (chronic obstructive pulmonary [...] Q24H 03/19/23 [History Last Taken Unknown] vitamins A,C,R-mlkv-ezmjlg 2,148 mcg-113 mg-45 mg-17.4 mg tablet (PreserVision [...] primary care physician Dr. Montaño to [facility] for further evaluation. Her labs are basically [...] 80.2 H Lymph % (Auto) 7.4 L [place] % (Auto) 9.8 Eos % (Auto) 0.0 [...] 18:09 EST Reading Location ID and State: [address] [place] [address] Tel , Service support , Chest x-ray, [...] rhythm rate 81 no acute signs of OK or ischemia. No significant dysrhythmia. Discharge Plan [...] your Primary Care Provider. Call [facility] ([phone]) or report to the closest Emergency Room. Call 911 if necessary. 03/28/232036 <Electronically signed by Etienne Thacker MD> Cosigner Signature (if applicable): CC: Dr. Claudine Durán MD ~ Signed [facility] Work Phone: 1(307) 860-794902-05-2024 Discharge summary Author Martín Cornejo [facility] March 26, 2023 4:23pm Note Date/Time March 26, 2023 1 :02pm [facility] Medical Records Department [address] [place] [address] Emergency Department Summary 03/26/23 MR#: [id number] Acct: [id number] Name: HAYDEE BUSTAMANTE Rep #:[id number] : 1945 77 From: Martín Cornejo DO PCP: Dr. Claudine Durán MD Status:AD M ADAIR Location: MS3 [id number] HPI History of Present Illness Chief Complaint: Shortness of Breath Narrative Narrative: 77-year-old female presenting with shortness of breath. She needs placement. She is unable to care for self at home. Patiently recently seen on 03/21/2023 [facility] was transferred to [facility] due to concern for bowel perforation which [...] on herself. She states they did a trick yesterday to stop her from urinating. So they can discharge her home from [facility]. Patient may need a TAVR in the future. She may need mitral valve repair.. Her creatinine was elevated while she was at [facility]. She was discharged home on Cipro and Flagyl. She will continue itraconazole twice daily. She is given Imodium for diarrhea. He has 4 more days of dexamethasone. She was to hold her HCTZ/irbesartan [facility] Medical History (Updated 03/26/23 @ 15:59 by [...] Q24H 03/19/23 [History Last Taken Unknown] vitamins A,C,I-rwtu-uhdxgh 2,148 mcg-113 mg-45 mg-17.4 mg tablet (PreserVision [...] 80.3 H Lymph % (Auto) 6.3 L [place] % (Auto) 9.6 Eos % (Auto) 0.0 [...] your Primary Care Provider. Call [facility] ([phone]) or report to the closest Emergency Room. Call 911 if necessary. 03/26/23 1623 <Electronically signed by Martín Cornejo DO> Cosigner Signature (if applicable): CC: Dr. Claudine Durán MD ~ Signed [facility] Work Phone: [phone]) 961-162902-04-2024 NoteHNO ID: [id number] Author: ARMEN FERNANDEZ, PAULA Service: Nursing Author Type: Registered Nurse Type: Nursing Progress Note Filed: 03/25/2023 08:58 Note Text: Sepsis alert, sound paged, vitals stable, pt stable, waitng for call-back from sound.[facility]02-03-2024 NoteHNO ID: [id number] Author: SHARAN RIVAS MD Service: Hospital Medicine Author Type: Physician Type: Progress Notes Filed: 03/24/2023 13:51 Note Text: DEPARTMENT OF HOSPITAL MEDICINE PROGRESS NOTE Hospital Medicine/Primary Attending: Sharan Rivas MD NIGHT AND WEEKEND COVERAGE: Before 7 pm please page Team color pager After 7pm please page [phone] MEDICATIONS: Current Facility-Administered Medications Medication Dose Route [...] (SPORANOX) 200 mg ORAL BID phenol 1 Stephen (CHLORASEPTIC) 1 Stephen MUCOUS MEMBRANE (TOPICAL MOUTH AND THROAT) q [...] was found to be COVID-19 positive in [place]. Imaging showed intraperitoneal air and pneumatosis intestinalis and patient was transferred to [facility]. Pulmonology was consulted and patient was started on remdesivir and Decadron for COVID-19. Also started on itraconazole, Cipro and Flagyl. Surgery was involved with no surgical plans. # Pneumatosis intestinalis and pneumoper (more content not included)...[facility]02-03-2024 NoteHNO ID: [id number] Author: MAGAN VILLAFUERTE DO Service: Pulmonary Disease [...] of disseminated histoplasmosis. She is followed in [place], [place]. She has a history of previous [...] She presented to the emergency room at [facility] after a vigorous coughing episode and coughing [...] (SPORANOX) 200 mg ORAL BID phenol 1 Stephen (CHLORASEPTIC) 1 Stephen MUCOUS MEMBRANE (TOPICAL MOUTH AND THROAT) q [...] Supple, no adenopathy; thyroi (more content not included)...[facility]02-02-2024 Miscellaneous Notes* Telephone Encounter - Rachelle Leonard APRN.SANTY - 03/23/2023 5:16 PM EST Please schedule patient to follow with Dr. Hart in 2 months. Thank you documented in this encounterOhio State [facility] Hospital02-02-2024 NoteHNO ID: [id number] Author: AMERICA RODRIGUEZ RN Service: Care Management Author Type: Registered Nurse Type: Care Mgt Progress Note Filed: 03/23/2023 14:44 Note Text: CARE MANAGEMENT PROGRESS NOTE SERVICE DATE: 03/23/2023 SERVICE TIME: 12:22 PM LOS: 4 days Post-Acute Discharge Planning Patient Goal(s): Be able to go home, General wellness [place] of Choice Explained: [place] of Choice Given: No Reason Not Given: [...] 23, 2023 TIME: 2:37 PM PAGER/CONTACT #: [phone] [facility] Hospital 03-23-2023 NoteHNO ID: [id number] Author: MAGAN VILLAFUERTE DO Service: Pulmonary Disease [...] of disseminated histoplasmosis. She is followed in [place], [place]. She has a history of previous [...] She presented to the emergency room at [facility] after a vigorous coughing episode and coughing [...] and pelvis 03/19/2023 Abnorma (more content not included)...[facility]02-02-2024 NoteHNO ID: [id number] Author: SHARAN RIVAS MD Service: Hospital Medicine [...] (SPORANOX) 200 mg ORAL BID phenol 1 Stephen (CHLORASEPTIC) 1 Stephen MUCOUS MEMBRANE (TOPICAL MOUTH AND THROAT) q [...] histoplasmosis, and VTE on (more content not included)...[facility]02-01-2024 NoteHNO ID: [id number] Author: GENO HART MD Service: Infectious Disease [...] home -Patient can call my office at [phone] to get an appointment for about 3 [...] for recurrent lower extremity DVT, presented to [facility] 03/19/2023 for hemoptysis, going to the [facility] ED but then sent here due to [...] be COVID-positive. Interestingly a CAT scan at [place] found pneumatosis intestinalis and intraperitoneal free air comp (more content not included)...[facility]02-01-2024 NoteHNO ID: [id number] Author: MAGAN VILLAFUERTE DO Service: Pulmonary Disease [...] of disseminated histoplasmosis. She is followed in [place], [place]. She has a history of previous [...] She presented to the emergency room at [facility] after a vigorous coughing episode and coughing [...] Positive PCR for COVID-19 supposedly reported from [facility]. Chest and abdomen/pelvis reviewed CTA chest 03/19/2023 No pulmonary embolism Prominent reticular no (more content not included)...[facility]02-01-2024 NoteHNO ID: [id number] Author: YAN PEREZ DO Service: General Surgery [...] (Oral) Resp 20 Ht 160 cm (5' 3) Wt 54.9 kg (121 lb) SpO2 97% BMI 21.43 kg/m? Yan Perez DO 03/22/2023 1:52 PM][facility]02-01-2024 NoteHNO ID: [id number] Author: JOSE LUIS CRISTOBAL DO Service: General [...] if in ICU or 2174 if on RNF.[facility]02-01-2024 NoteHNO ID: [id number] Author: SHARAN RIVAS MD Service: Hospital Medicine Author Type: Physician Type: Progress Notes Filed: 03/23/2023 09:28 Note Text: DEPARTMENT OF HOSPITAL MEDICINE PROGRESS NOTE Hospital Medicine/Primary Attending: Sharan Rivas MD NIGHT AND WEEKEND COVERAGE: Before 7 pm please page Team color pager After 7pm please page [phone] MEDICATIONS: Current Facility-Administered Medications Medication Dose Route [...] (SPORANOX) 200 mg ORAL BID phenol 1 Stephen (CHLORASEPTIC) 1 Stephen MUCOUS MEMBRANE (TOPICAL MOUTH AND THROAT) q [...] Liver Function, Amylase, AND Lipase Recent Labs 03/22/2332403/21/23 0632 03/20/23 1110 03/19/23 1921 TPROT 4.9* [...] and plan: Haydee Weber (more content not included)...[facility]02-01-2024 NoteHNO ID: [id number] Author: PAMELA HALL MD Service: General Surgery Author Type: Physician Type: Progress Notes Filed: 04/25/2023 15:56 Note Text: Emergency General Surgery Progress Note SERVICE DATE: March 22, 2023 Emergency General Surgery Service Pager: For questions or concerns Mon-Fri 6a-5p please page [phone]. After 5pm and on Weekends and Holidays, please page [phone] if in ICU or [phone] if on RNF. SUBJECTIVE: Patient denies worsening abdominal pain. No nausea or vomiting. Has not passed gas or had a BM. OBJECTIVE: Vitals: Temp (24hrs), Av.6 ?C (97.9 ?F), Min:36.4 ?C (97.5 ?F), Max:36.7 ?C (98.1 ?F) BP 109/65 Pulse 116 Temp 36.4 ?C (97.5 ?F) (Oral) Resp 18 Ht 160 cm (5' 3) Wt 54.9 kg (121 lb) SpO2 99% BMI 21.43 kg/m? O2 Therapy: Room Air IANDO: Date 03/21/23699 - 03/22/2365803/22/23699 - 03/23/23 0659 Shift 2109-9339 2340-0393 9644-2359 24 Hour Total 5870-6570 2234-9872 8294-8770 24 Hour Total INTAKE IV 300 300 [...] ORAL DIRECTED PRN remdesivir in NaCl 0.9% Vial-Mate/ADD-Grifton 100 mg 275 mL 100 mg INTRAVENOUS [...] (SPORANOX) 200 mg ORAL TID phenol 1 Stephen (CHLORASEPTIC) 1 Stephen MUCOUS MEMBRANE (TOPICAL MOUTH AND THROAT) q [...] arthritis (HCC) 03/07/2015 Overview Note: Dr. Hurley ([facility] [place]) Assessment: 77 year old female with PMH significant for RA (Humira), HTN, h/o disseminated Histoplasmosis, bronchiectasis, VTE (on coumadin), pulmonary nodules, and presenting to the ED today after an episode of hemoptysis at home. CTAP had an incidental finding of a small amount of intraperitoneal air and pneumatosis in the colon for which surgery was consulted. [facility] (more content not included)...[facility] 03-21-2023 NoteHNO ID: [id number] Author: GENO HART MD Service: Infectious Disease [...] for recurrent lower extremity DVT, presented to [facility] 03/19/2023 for hemoptysis, going to the [facility] ED but then sent here due to [...] be COVID-positive. Interestingly a CAT scan at [place] found pneumatosis intestinalis and intraperitoneal free air [...] Active Antimicrobials (From admission, onward) Start Stop 03/23/232099 itraconazole 200 mg oral liquid (SPORANOX) 200 mg, ORAL, 2 TIMES DAILY -- 03/21/23 1000 remdesivir in NaCl 0.9% Vial-Mate/ADD-Grifton 100 mg 275 mL 100 mg, INTRAVENOUS, EVERY 24 HOURS See Hyperspace for full Linked Orders Report. 03/23/23 0959 03/20/23 1300 itraconazole 200 mg oral liquid (SPORANOX) 200 mg, ORAL, 3 TIMES DAILY 03/23/23 1259 03/19/231999 cipro (more content not included)...[facility] 03-21-2023 NoteHNO ID: [id number] Author: PAMELA HALL MD Service: General Surgery [...] (Oral) Resp 18 Ht 160 cm (5' 3) Wt 54.9 kg (121 lb) SpO2 96% BMI 21.43 kg/m? O2 Therapy: Room Air IANDO: Date 03/20/23699 - 03/21/23 0659 03/21/23 07 - 03/22/23 0659 Shift 8932-6605 4194-3142 7613-3003 24 Hour Total 8158-9768 4587-2145 5247-0090 24 Hour Total INTAKE IV 1275 1275 [...] Dose Route Frequency remdesivir in NaCl 0.9% Vial-Mate/ADD-Grifton 100 mg 275 mL 100 mg INTRAVENOUS [...] (SPORANOX) 200 mg ORAL TID phenol 1 Stephen (CHLORASEPTIC) 1 Stephen MUCOUS MEMBRANE (TOPICAL MOUTH AND THROAT) q [...] arthritis (HCC) 03/07/2015 Overview Note: Dr. Hurley ([facility] [place]) Assessment: 77 year old female with PMH significant for RA (Humira), HTN, h/o disseminated Histoplasmosis, bronchiectasis, VTE (on coumadin), pulmonary nodules, and presenting to the ED today after an episode of hemoptysis at home. CTAP had an incidental finding of a small amount of intraperitoneal air and pneumatosis in the colon. INR on arrival to [facility] was 9. She given Vitamin K and transferred here. Hospital Course/Operations/Procedures: * No surgery found * Plan: Pneumatosis intestinalis and intraperitoneal free air - labs and imaging reviewed - Small amount of air on (more content not included)...[facility]01-31-2024 NoteHNO ID: [id number] Author: MAGAN VILLAFUERTE DO Service: Pulmonary Disease [...] of disseminated histoplasmosis. She is followed in [place], [place]. She has a history of previous [...] She presented to the emergency room at [facility] after a vigorous coughing episode and coughing [...] Positive PCR for COVID-19 supposedly reported from [facility]. Chest and abdomen/pelvis reviewed CTA chest [...] Right atrial cavity normal (more content not included)...[facility]01-30-2024 NoteHNO ID: [id number] Author: ELÍAS QUINN RN Service: Care Management Author Type: Registered Nurse Type: Care Mgt Initial Assessment Filed: 03/20/2023 16:23 Note Text: CARE MANAGEMENT: ASSESSMENT AND DISCHARGE PLAN SERVICE DATE: March 20, 2023 SERVICE TIME: 4:19 PM PCP: Claudine Durán MD Primary Contact: Extended Emergency Contact Information Primary Emergency Contact: Suzie Araiza (Stephany) Address: [facility] [address] [place] [address] [facility] Relation: Friend Secondary Emergency Contact: Padmini Chang Address: [address] [place], [place] [address] [place] [address] Mobile Relation: Friend Admission Status: Inpatient Insurance Provider: [employer] MED[employer]ARE PPO Discharge Planning requested by: Per Department Practice Potential Transition Plans Home Advance Directives Current Advance Directive: None Planer Mill Grader Attempted to Assist with AD Completion: Yes [...] wellness, Less pain, Wean off of O2 [place] of Choice Explained: [place] of Choice Given: No Reason Not Given: [...] 20, 2023 TIME: 4:19 PM CONTACT #: [phone] [facility] Hospital01-30-2024 Note HNO ID: [id number] Author: MAGAN VILLAFUERTE DO Service: Pulmonary Disease [...] of disseminated histoplasmosis. She is followed in [place], [place]. She has a history of previous [...] She presented to the emergency room at [facility] after a vigorous coughing episode and coughing [...] Positive PCR for COVID-19 supposedly reported from [facility]. Chest and abdomen/pelvis reviewed CTA chest [...] changes consistent with d (more content not included)...[facility]01-30-2024 NoteHNO ID: [id number] Author: PAMELA HALL MD Service: General Surgery Author Type: Physician Type: Progress Notes Filed: 03/20/2023 14:33 Note Text: Emergency General Surgery Progress Note SERVICE DATE: March 20, 2023 Emergency General Surgery Service Pager: For questions or concerns Mon-Fri 6a-5p please page [phone]. After 5pm and on Weekends and Holidays, [...] (Oral) Resp 19 Ht 160 cm (5' 3) Wt 54.9 kg (121 lb) SpO2 97% BMI 21.43 kg/m? O2 Therapy: Room Air IANDO: Date 03/19/23 07 - 03/20/23 0659 03/20/23 07 - 03/21/23 0659 Shift 7796-7769 4373-7333 4276-5829 24 Hour Total 3610-7925 7105-4986 4615-5663 24 Hour Total INTAKE IV 300 100 [...] in the colon. INR on arrival to [facility] was 9. She given Vitamin K and [...] chemical anticoagulation - INR on arrival to [facility] was 9. She given Vitamin K prior to transfer - continue serial abdominal exams - notify general surgery of any acute changes in clinical status D/w Dr. Hall SIGNATURE: Christ Camarena MD PATIENT NAME: Haydee Bustamante DATE: March 20, 2023 TIME: 921 Pager: [phone] Emergency General Surgery Service Pager: For questions or concerns Mon-Fri 6a-5p please page [phone]. After 5pm and on Weekends and Holidays, please page [phone] if in ICU or [phone] if on RNF. Emergency General Surgery (EGS) Staff Addendum: See admit H/P for full attestation following today's patient care visit. I evaluated the patient and personally participated in the jim components. I agree with the resident's findi (more content not included)...[facility]01-29-2024 Discharge summary Author Bob Elias [facility] March 19, 2023 5:11pm Note Date/Time March 19, 2023 1 0:38am [facility] Medical Records Department [address] [place] [address] Emergency Department Summary 03/19/23 MR#: [id number] Acct: [id number] Name: HAYDEE BUSTAMANTE Rep #:[id number] : 1945 77 From: Bob Amaro PCP: [...] states she has a history of histoplasmosis. [facility] Medical History (Updated 03/19/23 @ 15:[address] Bob Elias, ) Histoplasmosis Pulmonary embolism Home Medications adalimumab 40 [...] (Auto) 68.8 Lymph % (Auto) 15.1 L [place] % (Auto) 10.9 H Eos % (Auto) [...] bank resources here. Patient requested transfer to [facility]. Transfer line was contacted. Case was discussed with Dr. Lugo at [facility]. He accepted the patient and requested patient be transferred to the emergency department there. Case was discussed with emergency department physician. He accepted the patient to be transferred there. Patient was ordered type and screen. Patient was also ordered a unit of fresh frozen plasma. Patient will be transferred to [facility]. Patient and family understood and were agreeable with the plan. All questions were answered. Critical Care Time Critical Care Time: Yes Critical care time (excluding procedures): 30-74 minutes (38), Including time spent:, Discussing w/Patient &/or Family/Manufacturing Weaver, Discussing w/Consultants, Arranging Admission or Transfer and [...] Disposition Disposition: Acute Care Hospital Discharge Location: [facility] What to do if you have Problems For any increased pain, shortness of breath, bleeding, nausea or vomiting, chestpain, or any unexpected problems, contact your Primary Care Provider. Call [facility] ([phone]) or report to the closest Emergency Room. Call 911 if necessary. 03/19/23 1711 <Electronically signed by Bob Elias DO> Cosigner Signature (if applicable): CC: Dr. Claudine Durán MD ~ Signed [facility] Work Phone: 1(368) 780-304012-20-2023 History of Present illness Narrative* Kathleen Alegria, [...] 07, 2023 11:06 AM documented in this encounterOhio State East Hospital12-20-2023 History of Present illness Narrative* Adri Zaragoza APRN.TREE DOCTOR - 02/07/2023 10:52 AM EST Subjective HPI [...] (HCC) COPD (chronic obstructive pulmonary disease) ([facility]) Disseminated histoplasmosis Colitis, immunosuppression, 01/2018. Diverticulosis of colon (without mention of hemorrhage) Diverticulosis DVT, recurrent, lower extremity, acute ([facility]) 12/10/2014 Esophageal reflux Hiatal hernia 02/25/2018 Hypertension Lung nodule Personal history of unspecified urinary disorder Rheumatoid arthritis involving multiple sites with positive rheumatoid factor ([facility]) 03/07/2015 Dr. Hurley ([facility] [place]) Unspecified hemorrhoids without mention of complication Hemorrhoids [...] SPINE FUSN,POST INTERBODY 2011 Dr. Armando at [facility]. Diskectomy and laminectomy PAST SURGICAL HISTORY OF 03/07/1999 removal facial lesion PAST SURGICAL HISTORY OF 08/17/2014 excision soft tissue mass left index finger TONSILLECTOMY PRIMARY/SECONDARY <AGE 12 TRANSCATH RETRIEVAL,CIROUT 12/28/2006 ALLERGIES Penicillins MEDICATIONS budesonide-formoterol (SYMBICORT) 160-4.5 [...] fluticasone (FLONASE) 50 mcg/actuation nasal spray^Use 1 Stephen in each nostril once daily.^Disp: 3 Each^Rfl: [address] (PROTONIX) 40 mg tablet^Take 1 tablet by mouth once daily.^Disp: 90 tablet^Rfl: 3 albuterol HFA (PROAIR HFA) 90 mcg/actuation inhaler^Inhale 2 Puffs as instructed every 4 hours as needed.^Disp: 1 Each^Rfl: 2 vit A,C,T-Ejjt-Npqgyz (OCUVITE PRESERVISION) 2,148 mcg-113 mg-45 mg-17.4mg tab^Take [...] A/B & RSV NAAT, ROUTINE Adri Zaragoza APRN.TREE DOCTOR documented in this encounterOhio State East Hospital12-15-2023 History of Present illness Narrative* Melissa Means RN - 02/02/2023 3:19 PM EST pcp agrees with information * Melissa Means RN - 02/02/2023 9:47 AM EST patient had inr completed at [facility] patients inr is 2.1 (patients inr [...] for follow up INR. documented in this encounterOhio State East Hospital12-06-2023 Miscellaneous Notes* Telephone Encounter - Magalie Ngo LPN - 01/24/2023 9:02 AM EST GEREMIAS 07/20/22 Patient phones requesting refills as follows: Requested Prescriptions Pending Prescriptions Disp Refills budesonide-formoterol (SYMBICORT) 160-4.5 mcg/actuation inhaler [Pharmacy Med Name: BUDESONIDE/FORMINHALER 10.2GM 160/4.5MCG] 30.6 g 3 Sig: USE 2 INHALATIONS TWICE A DAY INSTRUCTED Please review and advise. Magalie Ngo LPN documented in this encounterOhio State East Hospital11-29-2023 History of Present illness Narrative* Melissa Means RN - 01/17/2023 3:02 PM EST pcp agrees with information * Melissa Means RN - 01/17/2023 1:55 PM EST patient had inr completed at [facility] patients inr is 1.9 (patients inr [...] reading since dose change documented in this encounterOhio State East Hospital11-22-2023 History of Present illness Narrative* Melissa Means RN - 01/10/2023 3:47 PM EST pcp agrees with information PATIENT NOTIFIED OF INFORMATION * Melissa Means RN - 01/10/2023 1:38 PM EST patient had inr completed at [facility] patients inr is 2.9 (patients [...] and advise on recommendation documented in this encounterOhio State East Hospital11-16-2023 History of Present illness Narrative* Yesenia Weinstein LPN - 01/04/2023 4:24 PM EST Patient notified of providers message and verbalized understanding. * Jimbo Swanson APRN.CNS - 01/04/2023 3:29 PM EST OK to change coumadin to 7.5mg Tues,Sat,Sun and 5mg all other days and recheck INR in 1 week * Melissa Means RN - 01/04/2023 11:34 AM EST patient had inr completed at [facility] patients inr is 2.6 (patients inr [...] and advise on recommendation documented in this encounterOhio State East Hospital11-16-2023 Instructions* Patient Instructions* Jimbo Swanson APRN.CNS - 01/04/2023 10:50 AM EST It appears that you have better coverage for the RSV vaccine at your local pharmacy. documented in this encounterOhio State East Hospital11-16-2023 History of Present illness Narrative* Jimbo [...] and COPD. HPI excerpted from previous visits: Body Shop Floorperson: Florence Collins MD, last seen July 20, 2022. Seen for follow-up of lung nodules bronchiectasis. Noted are a likely etiology for underlying bronchiectasis. Noted new nodularity of lung,likely represents inflammatory nodules. Will need follow-up CT. No this may improve with bronchopulmonary hygiene. Spiriva and intermittent albuterol has helped with cough. Stable. Demolition Specialist: William Messina BAV, aortic stenosis , last seen in cardiology August 29, 2022 by SANTY Love. Continued on current treatments unchanged. Follow-up echo advised, not yet scheduled.. Thermostat Maker: [facility]. Continues with methotrexate, Humira.seen by [...] Occasional bruising. [facility] coumadin clinic. Referred by employee welfare manager to see orthopedic physician for her hip. [...] fluticasone (FLONASE) 50 mcg/actuation nasal spray^Use 1 Stephen in each nostril once daily.^Disp: 3 Each^Rfl: [address] (PROTONIX) 40 mg tablet^Take 1 tablet by mouth once daily.^Disp: 90 tablet^Rfl: 3 albuterol HFA (PROAIR HFA) 90 mcg/actuation inhaler^Inhale 2 Puffs as instructed every 4 hours as needed.^Disp: 1 Each^Rfl: 2 vit A,C,S-Mhie-Roilee (OCUVITE PRESERVISION) 2,148 mcg-113 mg-45 mg-17.4mg tab^Take [...] positive rheumatoid factor (HCC) 03/07/2015 Dr. Hurley ([facility]) Unspecified hemorrhoids without mention of complication Hemorrhoids [...] to get at pharmacy discussed risks - Clarassance COVID-19 VACCINE (2022- [place]) AGE 12+ YR in office today Jimbo Swanson APRN.CNS Medical Decision Making: Problems: Low: 2+ self-limited or minor problems Risk: Moderate: Drug management Medical Decision Making Level: 3 - Low documented in this encounterOhio State East Hospital11-01-2023 Miscellaneous Notes* Telephone Encounter - Maritza [...] you. Maritza Preston LPN. documented in this encounterOhio State East Hospital10-26-2023 History of Present illness Narrative* Jimbo Swanson APRN.CNS - 12/14/2022 12:11 PM EDT Continue with Coumadin dose unchanged and check INR in 2 or 3 weeks * Melissa Means RN - 12/14/2022 10:25 AM EDT patient had inr completed at [facility] patients inr is 2.2 (patients inr [...] patient declines blood draw documented in this encounterOhio State East Hospital10-19-2023 History of Present illness Narrative* Yesenia [...] AM EDT patient had inr completed at [facility] patients inr is 2.5 (patients inr [...] and advise on recommendation documented in this encounterOhio State East Hospital10-02-2023 Miscellaneous Notes* Letter - Coordinator, Mammography - 11/20/2022 9:52 AM EDT November 20, 2022 PID: [id number] Haydee Bustamante [address] [place] [address] Dear Ms. Bustamante, We are pleased to [...] report will be [facility] as part of your permanent medical record and are available for your continuing care. Thank you for allowing us to help in meeting your health care needs. Sincerely, Dr. Basurto Interpreting Radiologist [facility] (Normal over 40) documented in this encounterOhio State East Hospital09-29-2023 History of Present illness Narrative* Aide [...] IV DATA: Not applicable SIGNED BY: Lucero Adamso Pete November 17, 2022 9:00 AM documented in this encounterOhio State East Hospital09-29-2023 Miscellaneous Notes* Result Encounter Note - Jimbo Swanson APRN.CNS - 11/17/2022 9:30 AM EDT Negative, 1 year screening follow-up documented in this encounterOhio State East Hospital09-21-2023 History of Present illness Narrative* Jimbo Swanson APRN.CNS - 11/09/2022 4:41 PM EDT Continue Coumadin dose unchanged and check INR in 4 weeks * Melissa Means RN - 11/09/2022 10:27 AM EDT patient had inr completed at [facility] patients inr is 1.9 (patients inr [...] follow u p INR. documented in this encounterOhio State East Hospital09-21-2023 Miscellaneous Notes* Telephone Encounter - Melissa Means RN - 11/09/2022 10:29 AM EDT patients orders for coumadin clinic inr's has at this time. new order has been pended for approval if possible so that patient can continue to get inr's completed thru the coumadin clinic. coumadin clinic nurse only needs called if order can not be approved. documented in this encounterOhio State East Hospital09-21-2023 History of Present illness Narrative* Ron Veras MD - 11/09/2022 8:50 AM EDT Ron Veras MD Department of Orthopaedics Orthopaedics [address] [facility] [address] Dept: [phone] Dept November 09, 2022 CHIEF COMPLAINT: New [...] acute pathology. 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 Food Production Supervisor: PSCIain Transcribe Date/Time: Dec 31 2021 11:55A [...] Bone marrow involvement with histoplasmosis Bronchiectasis ([facility]) COPD (chronic obstructive pulmonary disease) ([facility]) Disseminated histoplasmosis Colitis, immunosuppression, 01/2018. Diverticulosis of colon (without mention of hemorrhage) Diverticulosis DVT, recurrent, lower extremity, acute ([facility]) 12/10/2014 Esophageal reflux Hiatal hernia 02/25/2018 Hypertension Lung nodule Personal history of unspecified urinary disorder Rheumatoid arthritis involving multiple sites with positive rheumatoid factor ([facility]) 03/07/2015 Dr. Hurley ([facility]) Unspecified hemorrhoids without mention of complication Hemorrhoids [...] SPINE FUSN,POST INTERBODY 2012 Dr. Armando at [facility]. Diskectomy and laminectomy PAST SURGICAL HISTORY [...] (FLONASE) 50 mcg/actuation nasal spray Use 1 Stephen in each nostril once daily. pantoprazole DR (PROTONIX) 40 mg tablet Take 1 tablet by mouth once daily. albuterol HFA (PROAIR HFA) 90 mcg/actuation inhaler Inhale 2 Puffs as instructed every 4 hours as needed. vit A,C,X-Musm-Tozsgn (OCUVITE PRESERVISION) 2,148 mcg-113 mg-45 mg-17.4mg tab [...] physician via US mail. Twyla Cuevas [address] [phone] Claudine Durán MD [address] [phone] Ron Veras MD documented in this encounterOhio State East Hospital09-14-2023 Miscellaneous Notes* Telephone Encounter - Isabella [...] Pended. Melanie Mcgregor RN documented in this encounterOhio State East Hospital09-12-2023 Miscellaneous Notes* Telephone Encounter - Charissa [...] patient. Charissa Perez LPN documented in this encounterOhio State East Hospital09-12-2023 Miscellaneous Notes* Telephone Encounter - Ashly Shay RN - 10/31/2022 8:02 AM EDT Patient calling with request for medication/refill: Patient/caregiver requesting refill of Warfarinbe called to [facility] at online.. Patient denies any new or worsening symptoms of which a provider is not aware: Yes. Patient just discovered she will run out of the below rx on . Is requesting a short term supply be sent to [facility] in [place] and the remainder sent to [facility]. Has been taking medication as ordered. warfarin (COUMADIN) 5 mg tablet 30 tablet 3 07/11/2022 Sig: Take 7.5 mg , Sun,Sun, Sun, Sun; and 5 mg on Sunday and Sunday Sent to pharmacy as: warfarin (COUMADIN) 5 mg tablet documented in this encounterOhio State East Hospital09-08-2023 History of Present illness Narrative* Jimbo Swanson, CONNIE.RPG PROGRAMMER - 10/27/2022 9:20 AM EDT SUBJECTIVE: BP [...] bicuspid valve, lung nodule bronchiectasis and COPD. Body Shop Floorperson: Florence Collins MD, last seen July 20, 2022. Seen for follow-up of lung nodules bronchiectasis. Noted are a likely etiology for underlying bronchiectasis. Noted new nodularity of lung,likely represents inflammatory nodules. Will need follow-up CT. No this may improve with bronchopulmonary hygiene. Spiriva and intermittent albuterol has helped with cough. Stable. Demolition Specialist: William Siddharth BAV, aortic stenosis , last seen in cardiology August 29, 2022 by SANTY Love. Continued on current treatments unchanged. Follow-up echo advised, not yet scheduled.. Thermostat Maker: [facility]. Continues with methotrexate, Humira.seen by Dr. Jane Montoya 06/26/2022 for RA, osteoporosis, degenerative disc disease, arthritis of foot, osteoarthritis of bilateral hands. DEXA scan completed, showed osteoporosis. All yes trying recommended restart of Reclast. Weight: stable Exercise: walking miles most days, feeling well with this . 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 [...] pain, currently taking gabapentin. Plans to see digital product specialist, referred by employee welfare manager. Referred by employee welfare manager to see orthopedic physician for her hip. [...] fluticasone (FLONASE) 50 mcg/actuation nasal spray^Use 1 Stephen in each nostril once daily.^Disp: 3 Each^Rfl: [...] hours as needed.^Disp: 1 Each^Rfl: 2 vit A,C,F-Zlpl-Drctsd (OCUVITE PRESERVISION) 2,148 mcg-113 mg-45 mg-17.4mg tab^Take [...] Diverticulosis DVT, recurrent, lower extremity, acute ([facility]) 12/10/2014 Esophageal reflux Hiatal hernia 02/25/2018 Hypertension Lung nodule Personal history of unspecified urinary disorder Rheumatoid arthritis involving multiple sites with positive rheumatoid factor (HCC) 03/07/2015 Dr. Hurley ([facility]) Unspecified hemorrhoids without mention of complication Hemorrhoids [...] ICD9: 724.3, ICD10: M54.41 Plans to see digital product specialist 6. Hip pain, acute, left - ICD9: 719.45, ICD10: M25.552 7. Rheumatoid arthritis involving multiple sites with positive rheumatoid factor (HCC) - ICD9: 714.0, ICD10: M05.79 Followed by [facility] 8. Bronchiectasis without complication (HCC) [...] Level: 4 - Moderate documented in this encounterOhio State East Hospital09-08-2023 Instructions* Patient Instructions* Jimbo Swanson APRN.CNS - 10/27/2022 9:01 AM EDT Consider getting new COVID booster when it becomes available either in clinic or at pharmacy. documented in this encounterOhio State East Hospital09-07-2023 History of Present illness Narrative* Jimbo Swanson APRN.CNS - 10/26/2022 4:38 PM EDT Continue with Coumadin dose unchanged and check INR in 2 weeks * Melissa Means RN - 10/26/2022 12:14 PM EDT patient had inr completed at [facility] patients inr is 1.7 (patients inr [...] reading since dose change documented in this encounterOhio State East Hospital08-24-2023 History of Present illness Narrative* Maritza [...] PM EDT patient had inr completed at [facility] patients inr is 1.5 (patients inr [...] and advise on recommendation documented in this encounterOhio State East Hospital08-21-2023 Miscellaneous Notes* Telephone Encounter - Claudine [...] Thank you. CARMEN Viveros documented in this encounterOhio State East Hospital08-07-2023 Miscellaneous Notes* Telephone Encounter - Will [...] year. Thanks ~ JJ documented in this encounterOhio State East Hospital07-28-2023 Miscellaneous Notes* Telephone Encounter - Muna Porter RN - 09/15/2022 10:24 AM EDT Pt called and is notified of providers results and instructions. Pt voices understanding. Muna Porter RN * Telephone Encounter - Brittayn Cedillo LPN - 09/14/2022 4:54 PM EDT Message left to pts home number with instructions and requested return call to verify pt rec'd them. * Telephone Encounter - Jimbo Swanson APRN.CNS - 09/14/2022 4:44 PM EDT INR remains a bit above target. 7.5 mg Sunday, 5 mg all other days. Check INR 2 weeks * Telephone Encounter - uRby Tobin RN - 09/14/2022 3:23 PM EDT Patient returning call to verify coumadin dosage and information as follows: Last INR: 2.4 09/14/2022 Current dose of coumadin is: 5 mg on Sun, Sun and Sun and 7.5 mg all other [...] dose and pt findings. documented in this encounterOhio State East Hospital07-20-2023 History of Present illness Narrative* Melissa Means RN - 09/07/2022 4:07 PM EDT PATIENT NOTIFIED OF INFORMATION * Jimbo Swanson APRN.CNS - 09/07/2022 3:49 PM EDT Okay for 5 mg Coumadin Sunday and 7.5 mg all other days. Recheck INR in 1 week * Melissa Means RN - 09/07/2022 11:59 AM EDT patient had inr completed at [facility] patients inr is 2.4 (patients inr [...] weeks patient has been scheduled at that [facility] for an inr follow up 09/14/22 (order is already in place) please review and advise on recommendation documented in this encounterOhio State East Hospital07-11-2023 Instructions* Patient Instructions* Rachelle Schulte APRN.CNP [...] up in 6 months documented in this encounterOhio State East Hospital07-11-2023 History of Present illness Narrative* Rachelle Schulte APRN.CNP - 08/29/2022 9:30 AM EDT Images from the original note were not included. [facility] Department of Cardiovascular Medicine SECTION [...] which included preparing to see the patient, [id number] patient care, completing clinical documentation, performing a [...] prior to the follow up. Rachelle Schulte APRN.[facility] Cardiology Nurse Practitioner Section of [facility] Cardiology [facility] Dept of Cardiovascular Medicine [facility] [place] [id number] Office Office August 29, 2022 7:46 AM This note was partially generated using Social Plus voice recognition system and may contain errors [...] nodule with faint calcifications suggesting calcified granuloma. Food Production Supervisor: PSCB Transcribe Date/Time: Jul 24 2022 10:02A [...] 142/78 Pulse 75 Ht 162.6 cm (5' 4) Wt 58.5 kg (129 lb) SpO2 98% [...] Diverticulosis DVT, recurrent, lower extremity, acute ([facility]) 12/10/2014 Esophageal reflux Hiatal hernia 02/25/2018 Hypertension Lung nodule Personal history of unspecified urinary disorder Rheumatoid arthritis involving multiple sites with positive rheumatoid factor (HCC) 03/07/2015 Dr. Hurley ([facility]) Unspecified hemorrhoids without mention of complication Hemorrhoids [...] and ROS obtained by others. Rachelle Schulte APRN.TREE DOCTOR CURRENT MEDICATIONS: Current Outpatient Medications Medication Sig budesonide-formoterol (SYMBICORT) 160-4.5 mcg/actuation inhaler Inhale 2 Puffs as instructed twice daily. fluticasone (FLONASE) 50 mcg/actuation nasal spray Use 1 Stephen in each nostril once daily. warfarin (COUMADIN) 5 mg tablet Take 7.5 mg , Sun,Sun, Sun, Sun; and 5 mg on Sunday and Sunday pantoprazole DR (PROTONIX) 40 mg tablet Take 1 tablet by mouth once daily. albuterol HFA (PROAIR HFA) 90 mcg/actuation inhaler Inhale 2 Puffs as instructed every 4 hours as needed. vit A,C,Z-Xxjx-Cjvmzv (OCUVITE PRESERVISION) 2,148 mcg-113 mg-45 mg-17.4mg tab [...] mL INTRAVENOUS DIRECTED PRN documented in this encounterOhio State East Hospital06-27-2023 Miscellaneous Notes* Telephone Encounter - Magalie Ngo LPN - 08/15/2022 10:20 AM EDT GEREMIAS 07/20/22 Patient phones requesting refills as follows: Requested Prescriptions Pending Prescriptions Disp Refills budesonide-formoterol (SYMBICORT) 160-4.5 mcg/actuation inhaler Sig: Inhale as instructed twice daily. Please review and advise. Magalie Ngo LPN documented in this encounterOhio State East Hospital06-25-2023 Miscellaneous Notes* Telephone Encounter - Claudine [...] now. Bakari Catalan LPN documented in this encounterOhio State East Hospital06-01-2023 History of Present illness Narrative* Florence Collins MD - 07/20/2022 9:30 AM EDT Images from the original note were not included. . Respiratory [facility] Note Patient name: Haydee Bustamante PCP: Claudine Durán MD CC: Follow-up chest CT HPI: Haydee Bustamante 77 year old female former 10 pack year smoker with PMH significant for RA (MTX, Humira), HTN, h/o disseminated Histoplasmosis, bronchiectasis, , VTE, pulmonary nodules, who presents for follow-up. Current inhaled therapy with Symbicort and Spiriva. At [facility] with me, she was a newpatient [...] clear sometimes difficult to expectorate, thick and stringy. She has mucus clearance devices but does [...] DATE OF EXAM: Jul 20 2022 9:22AM [facility] 0541 - CT CHEST WO IVCON / [...] abdomen within the limits of noncontrast technique.. Principal Archaeologist (topogram) images: IVC filter present IMPRESSION: Findings [...] (HCC) COPD (chronic obstructive pulmonary disease) ([facility]) Disseminated histoplasmosis Colitis, immunosuppression, 01/2018. Diverticulosis of colon (without mention of hemorrhage) Diverticulosis DVT, recurrent, lower extremity, acute ([facility]) 12/10/2014 Esophageal reflux Hiatal hernia 02/25/2018 Hypertension Lung nodule Personal history of unspecified urinary disorder Rheumatoid arthritis involving multiple sites with positive rheumatoid factor ([facility]) 03/07/2015 Dr. Hurley ([facility]) Unspecified hemorrhoids without mention of complication Hemorrhoids [...] hours as needed.^Disp: 1 Each^Rfl: 2 vit A,C,J-Kkvt-Suimic (OCUVITE PRESERVISION) 2,148 mcg-113 mg-45 mg-17.4mg tab^Take [...] fluticasone (FLONASE) 50 mcg/actuation nasal spray^Use 1 Stephen in each nostril once daily.^Disp: 3 Each^Rfl: [...] SPINE FUSN,POST INTERBODY 2012 Dr. Armando at [facility]. Diskectomy and laminectomy PAST SURGICAL HISTORY [...] her underlying bronchiectasis Florence Collins MD Respiratory [facility] documented in this encounterOhio State East Hospital06-01-2023 History of Present illness Narrative* Faviola Anthony RT(R) - 07/20/2022 9:00 AM EDT Radiology Service Progress Note PATIENT NAME: Haydee Bustamanet DATE OF SERVICE: July 20, 2022 TIME: [...] 20, 2022 9:35 AM documented in this encounterOhio State East Hospital05-11-2023 History of Present illness Narrative* Jimbo Swanson APRN.CNS - 06/29/2022 1:52 PM EDT Continue with Coumadin dosing unchanged and check INR in 2 weeks * Melissa Means RN - 06/29/2022 10:28 AM EDT patient had inr completed at [facility] patients inr is 2.1 (patients inr [...] reading since dose change documented in [place] encounterLisa [place] [address]-04-2023 Miscellaneous Notes* Telephone Encounter - Claudine Durán [...] rescheduled. Lani from Dr Rani Cowart's office [facility] states they received a signed clearance from [...] is scheduled for surgery tomorrow morning. PH: [phone] X [phone] FAX: [phone]. Maricarmen Jacobs LPN documented in this encounterOhio State East Hospital03-16-2023 History of Present illness Narrative* Jimbo Swanson APRN.CNS - 05/04/2022 12:54 PM EDT Continue Coumadin dose unchanged and check INR in 1 month * Melissa Means RN - 05/04/2022 10:26 AM EDT patient had inr completed at [facility] patients inr is 2.0 (patients inr [...] for follow up INR. documented in this encounterOhio State East Hospital02-16-2023 History of Present illness Narrative* Jimbo Swanson APRN.CNS - 04/06/2022 12:24 PM EST Continue with Coumadin dose unchanged and check INR in 4 weeks * Melissa Means RN - 04/06/2022 9:45 AM EST patient had inr completed at [facility] patients inr is 2.0 (patients inr [...] for follow up INR. documented in this encounterOhio State East Hospital02-09-2023 History of Present illness Narrative* Melissa [...] AM EST patient had inr completed at [facility] patients inr is 2.3 (patients inr [...] up inr on 04/06/22 documented in this encounterOhio State East Hospital01-23-2023 History of Present illness Narrative* Claudine Durán MD - 03/13/2022 10:41 AM EST This note was created using WorkCastriter. Subjective Haydee Bustamante is a 76 year old female. Patient presents with: 4 month follow up SUBJECTIVE: Haydee Bustamante is a 76 year old year old lady here today for 4 month follow up appointment for reviewof medical conditions. Following with eye doctor. Has early macular degeneration. Given glasses for it. Having foot surgery at [facility] May 19. Told will be extensive--straighten all [...] for Rheumatology. New one now since Dr. Hulrey retired. PAST MEDICAL HISTORY Diagnosis Date Anemia Bone marrow involvement with histoplasmosis Bronchiectasis (HCC) COPD (chronic obstructive pulmonary disease) ([facility]) Disseminated histoplasmosis Colitis, immunosuppression, 01/2018. Diverticulosis of colon (without mention of hemorrhage) Diverticulosis DVT, recurrent, lower extremity, acute ([facility]) 12/10/2014 Esophageal reflux Hiatal hernia 02/25/2018 Hypertension Personal history of unspecified urinary disorder Rheumatoid arthritis involving multiple sites with positive rheumatoid factor ([facility]) 03/07/2015 Dr. Hurley ([facility]) Unspecified hemorrhoids without mention of complication Hemorrhoids Current Outpatient Medications Medication Sig naproxen (NAPROSYN) 500 mg tablet Take 1 tablet by mouth twice daily as needed. Take with food gabapentin (NEURONTIN) 300 mg capsule Take 1 capsule by mouth twice daily. fluticasone (FLONASE) 50 mcg/actuation nasal spray Use 1 Stephen in each nostril once daily. tiotropium bromide [...] (HCC) M05.79 5. COPD without exacerbation ([facility]) J44.9 6. Bronchiectasis without complication ([facility]) J47.9 7. Acquired hammertoe of left foot [...] and as needed for preop eval for beater worker helper. Noted that has not needed bridging Lovenox when has been off coumadin. Continue present management with anticoagulation. .BP controlled. Continue present management. Claudine Durán MD documented in this encounterOhio State East Hospital12-15-2022 History of Present illness Narrative* Jimbo Swanson APRN.CNS - 02/02/2022 1:32 PM EST Continue with Coumadin dose unchanged check INR in 4 weeks * Melissa Means RN - 02/02/2022 10:49 AM EST patient had inr completed at [facility] patients inr is 2.0 (patients inr [...] for follow up INR. documented in this encounterOhio State East Hospital11-29-2022 Miscellaneous Notes* Telephone Encounter - Geni [...] advise. Geni Cintron LPN documented in this encounterOhio State East Hospital11-23-2022 Miscellaneous Notes* Telephone Encounter - Lynne Mann LPN - 01/11/2022 9:09 AM EST Spoke with pt and information listed below given. Pt verbalizes understanding. She will get the labs when they are due. Lynne Mann LPN * Telephone Encounter - Claudine Durán MD - 01/11/2022 8:14 AM EST Patient gets labs done for employee welfare manager so labs are up to date The [...] you. Lynne Mann LPN documented in this encounterOhio State East Hospital11-17-2022 History of Present illness Narrative* Melissa Means RN - 01/05/2022 4:[address] haynes he agrees with information * Melissa Means RN - 01/05/2022 1:09 PM EST patient had inr completed at [facility] patients inr is 2.2 (patients inr [...] follow u p INR. documented in this encounterOhio State East Hospital11-12-2022 History of Present illness Narrative* Katarzyna [...] 31, 2021 11:45 AM documented in this encounterOhio State East Hospital11-03-2022 History of Present illness Narrative* Melissa Means RN - 12/22/2021 3:56 PM EDT PATIENT NOTIFIED OF INFORMATION * Jimbo Swanson APRN.CNS - 12/22/2021 1:40 PM EDT Recommend Coumadin 7.5 mg today. Then resume usual dosing 5 mg Sunday and 7.5 mg all other days. Check INR 2 weeks * Melissa Means RN - 12/22/2021 11:16 AM EDT patient had inr completed at [facility] patients inr is 1.4 (patients inr range is 1.7-2.2) patient is currently taking 5mg Sun,Wed,Sun and 7.5mg all other days patients last [...] up inr on 01/05/22 documented in this encounterOhio State East Hospital10-11-2022 History of Present illness Narrative* Florence Collins MD - 11/29/2021 10:00 AM EDT Images from the original note were not included. . Respiratory [facility] Note Patient name: Haydee Bustamante PCP: Claudine Durán MD CC: Follow-up lung disease HPI: Haydee Bustamante 76 year old female former [id number] smoker having quit in 1989 with PMH [...] Diverticulosis DVT, recurrent, lower extremity, acute ([facility]) 12/10/2014 Esophageal reflux Hiatal hernia 02/25/2018 Hypertension Personal history of unspecified urinary disorder Rheumatoid arthritis involving multiple sites with positive rheumatoid factor ([facility]) 03/07/2015 Dr. Hurley ([facility]) Unspecified hemorrhoids without mention of complication Hemorrhoids ALLERGIES Allergen Reactions Penicillins Hives fluticasone (FLONASE) 50 mcg/actuation nasal spray^Use 1 Stephen in each nostril once daily.^Disp: 3 Each^Rfl: [...] SPINE FUSN,POST INTERBODY 2011 Dr. Armando at [facility]. Diskectomy and laminectomy PAST SURGICAL HISTORY [...] treatment per rheumatology Florence Collins MD Respiratory [facility] documented in this encounterOhio State East Hospital10-06-2022 Miscellaneous Notes* Telephone Encounter - Pili Burgos - 11/24/2021 10:37 AM EDT error documented in this encounterOhio State East Hospital09-22-2022 History of Present illness Narrative* Jimbo Swanson APRN.RPG PROGRAMMER - 11/10/2021 9:20 AM EDT SUBJECTIVE: BP [...] and COPD. HPI excerpted from previous visit: Demolition Specialist: William GOTTI, aortic stenosis - has 01/2021 appt Body Shop Floorperson: Mirian Medrano / Johanna Mariscal 6 month follow up with PFT 05/2020 Infectious disease:Ayanna Schulte -histoplasmosis on Humira -follow-up in 6 months 09/2019 Thermostat Maker:: Today reports had toe infection has completely healed. States that beater worker helper discussed possible amputation of toe but would prefer not to go that route. May see an alternate beater worker helper at [facility]. States took blood pressure medication today. Continues [...] 12 mos RA: controlled currently, following with employee welfare manager. OAC: no bleeding difficulties. Occasional bruising. Spiriva [...] fluticasone (FLONASE) 50 mcg/actuation nasal spray^Use 1 Stephen in each nostril once daily.^Disp: 3 Bottle^Rfl: [...] positive rheumatoid factor (HCC) 03/07/2015 Dr. Hurley ([facility]) Unspecified hemorrhoids without mention of complication Hemorrhoids [...] Abs Lymph 1.00 - 4.00 k/uL 1.64 [place]% % 8.0 Abs [place] <0.87 k/uL 0.60 Eosin% % 2.7 Abs [...] (HCC) - ICD9: 496, ICD10: J44.9 - [id number] BL 3. Encounter for immunization - ICD9: V03.89, ICD10: Z23 - [employer] COVID-19 BIVALENT BOOSTER VACCINE, AGE 12+ YR - INFLUENZA SEASONAL QUADRIVALENT HIGH DOSE AGE 65+ 4. Gastroesophageal reflux disease without esophagitis - ICD9: 530.81, ICD10: K21.9 5. Bronchiectasis without complication (HCC) - ICD9: 494.0, ICD10: J47.9 6. COPD without exacerbation (HCC) - ICD9: 496, ICD10: J44.9 7. Aortic stenosis with bicuspid valve - ICD9: 746.3, 746.4, ICD10: Q23.0, Q23.1 Jimbo Swanson APRN.RPG PROGRAMMER] Jimbo Swanson APRN.CNS Medical Decision Making: Problems: Moderate: 1+ chronic illnesses with change and 2+ stable chronic illnesses Risk: Moderate: Drug management Medical Decision Making Level: 4 - Moderate documented in this encounterOhio [facility]09-21-2022 Miscellaneous Notes* Telephone Encounter - Claudine [...] can not be approved. documented in this encounterOhio State East Hospital09-20-2022 Miscellaneous Notes* Telephone Encounter - Ruby [...] you. Ruby Tobin RN documented in this encounterOhio State East Hospital09-13-2022 Instructions* Patient Instructions* Chacho Louise - 11/01/2021 9:29 AM EDT Your ulceration is now healed Ok to continue with padding as needed F/u as needed documented in this encounterOhio State East Hospital09-13-2022 History of Present illness Narrative* Chacho [...] multiple sites with positive rheumatoid factor ([facility]) 03/07/2015 Dr. Hurley ([facility] [place]) Unspecified hemorrhoids without mention of complication Hemorrhoids [...] (FLONASE) 50 mcg/actuation nasal spray Use 1 Stephen in each nostril once daily. (Patientnot taking: [...] SPINE FUSN,POST INTERBODY 2012 Dr. Armando at [facility]. Diskectomy and laminectomy PAST SURGICAL HISTORY [...] Has stopped wrapping it. documented in this encounterOhio State East Hospital09-08-2022 History of Present illness Narrative* Melissa Means RN - 10/27/2021 11:06 AM EDT patient had inr completed at [facility] patients inr is 1.6 (patients inr [...] for follow up INR. documented in this encounterOhio State East Hospital08-30-2022 Instructions* Patient Instructions* Chacho Louise - 10/18/2021 9:[address] aquacel on ulceration daily Place lambs wool or guaze horizontally between the interspace Secure lambs wool or guaze with daniella wrap or tape Wear surgical shoe or wide sneaker or even sandal to avoid pressure on 5th toe documented in this encounterOhio State East Hospital08-30-2022 History of Present illness Narrative* Chacho [...] Diverticulosis DVT, recurrent, lower extremity, acute ([facility]) 12/10/2014 Esophageal reflux Hiatal hernia 02/25/2018 Hypertension Personal history of unspecified urinary disorder Rheumatoid arthritis involving multiple sites with positive rheumatoid factor ([facility]) 03/07/2015 Dr. Hurley ([facility]) Unspecified hemorrhoids without mention of complication Hemorrhoids [...] (FLONASE) 50 mcg/actuation nasal spray Use 1 Stephen in each nostril once daily. (Patientnot taking: [...] SPINE FUSN,POST INTERBODY 2011 Dr. Armando at [facility]. Diskectomy and laminectomy PAST SURGICAL HISTORY [...] Chacho Louise DPM Podiatry [address] [facility] [address] Dept: [phone] Dept * Imelda Quijano LPN - 10/18/2021 8:48 AM EDT AMB ROOMING INTAKE FLOWSHEET DATA Pain Pain Level: 4 Pain Location: Toe Description: Sharp, Raw, Sore Duration Amount of Time: 2 Duration Units: Months Frequency: Intermittent Intervention/Comfort measure: Reposition, Relaxation Patient presents with: Right Foot - Established Patient, Follow Up, Pain, Blister Imelda Quijano LPN documented in this encounterOhio State East Hospital08-30-2022 Miscellaneous Notes* Telephone Encounter - Muna [...] you. Muna Porter RN documented in this encounterOhio State East Hospital08-24-2022 History of Present illness Narrative* RT [...] 12, 2021 10:06 AM documented in this encounterOhio State East Hospital08-24-2022 History of Present illness Narrative* Haider Garcia - 10/12/2021 9:30 AM EDT Radiology Service [...] 12, 2021 9:56 AM documented in this encounterOhio State East Hospital08-11-2022 History of Present illness Narrative* Jimbo Swanson APRN.CNS - 09/29/2021 1:52 PM EDT Continue current Coumadin dose unchanged and check INR in 4 weeks * Melissa Means RN - 09/29/2021 1:20 PM EDT patient had inr completed at [facility] patients inr is 2.0 (patients inr [...] for follow up INR. documented in this encounterOhio State East Hospital08-02-2022 Instructions* Patient Instructions* Jimbo Swanson APRN.CNS - 09/20/2021 1:55 PM EDT Keep your toe clean dry and . Was with soap and water daily, dry thoroughly. Use lambswool between toes. Avoid tight shoes documented in this encounterOhio State East Hospital08-02-2022 History of Present illness Narrative* Jimbo [...] and COPD. 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 Histoplasmosis: notes resolved symptoms. OAC: no bleeding difficulties. Occasional bruising. Spiriva and intermittent albuterol has helped with cough. Presents today for foot lesion. She notes she is been wearing tight shoes for a efw-suhl production at [facility] for about a month. She [...] (FLONASE) 50 mcg/actuation nasal spray Use 1 Stephen in each nostril once daily. econazole (SPECTAZOLE) [...] with positive rheumatoid factor (HCC) 03/07/2015 Dr. Hulrey ([facility]) Unspecified hemorrhoids without mention of complication Hemorrhoids [...] Abs Lymph 1.00 - 4.00 k/uL 1.64 [place]% % 8.0 Abs [place] <0.87 k/uL 0.60 Eosin% % 2.7 Abs [...] Level: 3 - Low documented in this encounterOhio State East Hospital07-18-2022 Miscellaneous Notes* Letter - Mammography Coordinator - 09/05/2021 10:07 AM EDT September 05, 2021 PID: [id number] Haydee Bustamante [address] [place] [address] Dear Rc Bustamante, Your recent breast imaging exam on 09/05/2021 showed a possible finding that requires additional imaging studies for a complete evaluation. Most such findings are probably benign (not cancer). If you have a healthcare provider who ordered/prescribed your screening mammogram: Please call [phone] or [phone]: [phone] to schedule an appointment for your additional [...] and reports are kept on file [facility] as part of your permanent medical record, and are available for your continuing care. Thank you for allowing us to help in meeting your health care needs. Sincerely, Dr. Bell Interpreting Radiologist [facility] (Additional imaging) documented in this encounterOhio State East Hospital07-18-2022 History of Present illness Narrative* Emi Gloria Taquillao Mowdo - 09/05/2021 9:30 AM EDT Radiology Service [...] DATA: Not applicable SIGNED BY: Emi Gloria Trumpet Search September 05, 2021 9:28 AM documented in this encounterOhio State East Hospital07-05-2022 History of Present illness Narrative* Melissa Means RN - 08/23/2021 4:36 PM EDT per verbal order by telecommunications field technician provider dr rowell she agrees with information * Melissa Means RN - 08/23/2021 12:01 PM EDT patient had inr completed at [facility] patients inr is 2.2 (patients inr [...] for follow up INR. documented in this encounterOhio State East Hospital06-24-2022 History of Present illness Narrative* William Messina, - 08/12/2021 11:31 AM EDT Images from the original note were not included. [facility] SECTION OF [facility]AL CARDIOLOGY [facility] OUTPATIENT VISIT DATE August 12, 2021 PRIMARY CARE PHYSICIAN: Claudine Durán [address] [place] [address] HISTORY OF PRESENT ILLNESS: Ms. Bustamante is a 76 year old female. The patient returns for follow-up due to history of known bicuspid aortic valve stenosis. Previous stenosis has been evaluation as showed this to be mild. Additionalhistory includes hypertension. 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 She is planning on doing efw-suhl again this summer. She denies chest discomfort, [...] 130/74 Pulse 72 Ht 162.6 cm (5' 4) Wt 59.4 kg (131 lb) SpO2 99% [...] positive rheumatoid factor (HCC) 03/07/2015 Dr. Hurley ([facility]) Unspecified hemorrhoids without mention of complication Hemorrhoids [...] SPINE FUSN,POST INTERBODY 2012 Dr. Armando at [facility]. Diskectomy and laminectomy PAST SURGICAL HISTORY [...] (FLONASE) 50 mcg/actuation nasal spray Use 1 Stephen in each nostril once daily. econazole (SPECTAZOLE) [...] Department of Medicine and Division of Cardiology, [facility] Roving Changerflow floor attendant [facility] Roving Changer of Congestive Heart Failure Clinic [facility] Cardiology Office Roving Changer [facility] Staff Demolition Specialist, Les Pierce Department of Cardiovascular Medicine/Heart and Vascular [place], [facility] Clinical Freight Breaker Profressor of Medicine, [facility] Please note: This note has been produced using speech recognition software and may contain errors related to that system including madelyn, punctuation, spelling, words, gender and phrases that may be inappropriate. documented in this encounterOhio State East Hospital06-10-2022 Miscellaneous Notes* Telephone Encounter - Nahomy Mercado - 07/29/2021 2:32 PM EDT Pharmacy faxed requesting the following refill. Pending Prescriptions Disp Refills SYMBICORT 160 MCG-4.5 MCG/ACTUATION HFA AEROSOL INHALER 30.6 g 4 Sig: USE 2 INHALATIONS TWICE A DAY INSTRUCTED YULIANA: Yes Patient last appointment: [address] Andujar Patient Phone numbers: [phone] (home) Request is for script(s) to be escript to pharmacy. Nahomy Mercado documented in this encounterOhio State East Hospital06-06-2022 History of Present illness Narrative* Melissa Means RN - 07/25/2021 4:39 PM EDT pcp agrees with information * Melissa Means RN - 07/25/2021 11:43 AM EDT patient had inr completed at [facility] patients inr is 1.8 (patients inr [...] for follow up INR. documented in this encounterOhio State East Hospital05-23-2022 History of Present illness Narrative* Claudine Durán MD - 07/11/2021 8:18 AM EDT This note was created using WorkCastriter. Subjective Haydee Bustamante is a 76 year [...] toe surgery for now--has show. 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 Noted fell when missed top step. [...] multiple sites with positive rheumatoid factor ([facility]) 03/07/2015 Dr. Hurley ([facility]) Unspecified hemorrhoids without mention of complication Hemorrhoids [...] (FLONASE) 50 mcg/actuation nasal spray Use 1 Stephen in each nostril once daily. econazole (SPECTAZOLE) [...] Abs Lymph 1.00 - 4.00 k/uL 1.64 [place]% % 8.0 Abs [place] <0.87 k/uL 0.60 Eosin% % 2.7 Abs [...] 1.7 The 10-year ASCVD risk score (Koby DC Jr., et al., 2013) is: 17.2% Values [...] vaccine - ICD9: V04.89, ICD10: Z23 - [employer] COVID-19 VACCINE, AGE 12+ YR (ARIAS TOP) 6. COPD without exacerbation (HCC) - ICD9: 496, ICD10: J44.9 Continue present management. Discussed Dr. Andujar's instructions to use albuterol before activity that causes coughing 7. Bronchiectasis without complication (HCC) - ICD9: 494.0, ICD10: J47.9 As noted above. Fall discussed. Arthritis discussed. Claudine Durán MD documented in this encounterOhio State East Hospital05-12-2022 History of Present illness Narrative* Gold [...] venegas name is Katarzyna Malcolm RN your Orthopaedic Doctor from Claudine Durán MD office at the [facility]. I am reaching out today because [...] Bustamante. This is Katarzyna Malcolm RN your Orthopaedic Doctor from the [facility]. I am calling to check in with you concerning the MyChart questionnaire you have been receiving from me. I will call you again tomorrow and am looking forward to speaking with you. (Orthopaedic Doctor enters next day in next patient outreach) Katarzyna Malcolm RN June 29, 2021 3:31 PM documented in this encounterOhio State East Hospital04-21-2022 History of Present illness Narrative* Melissa Means RN - 06/09/2021 4:19 PM EDT per telecommunications field technician provider dr garza patient is to continue same dose PATIENT NOTIFIED OF INFORMATION * Melissa Means RN - 06/09/2021 10:26 AM EDT patient had inr completed at [facility] patients inr is 1.6 (patients inr [...] for follow up INR. documented in this encounterOhio State East Hospital04-18-2022 Miscellaneous Notes* Telephone Encounter - Sergey [...] pharmacy. Sergey Ramirez Ma documented in this encounterOhio State East Hospital04-11-2022 Instructions* Patient Instructions* Mirian Andujar MD [...] I am retiring from the staff of [facility] and the practice of Medicine on August 18, 2021, after 41 years of service to my patients. It has been my privilege to provide you with Pulmonary consultation and care for the time we have known each other. Please feel confident that my colleagues are well equipped to provide ongoing care in the future: Akbar Collins MD and Johanna Mariscla PA-C. documented in this encounterOhio State East Hospital04-11-2022 History of Present illness Narrative* Mirian Andujar MD - 2021 3:33 PM EDT [facility] Respiratory [place], 2021: Name: Haydee Bustamante : 1945 INTERVAL [...] 98 Resp 14 Ht 162.6 cm (5' 4) Wt 58.3 kg (128 lb 9.6 oz) [...] months, sooner if needed. Mirian Andujar MD, [facility] Respiratory [place] [facility] [address] [address] P: [phone] F: [phone] [email or web address] documented in this encounterOhio State East Hospital04-07-2022 History of Present illness Narrative* Melissa Means RN - 05/26/2021 3:21 PM EDT telecommunications field technician provider agrees with information * Melissa Means RN - 05/26/2021 10:43 AM EDT patient had inr completed at [facility] patients inr is 1.6 (patients inr [...] is just slightly low documented in this encounterOhio State East Hospital04-01-2022 History of Present illness Narrative* Nara Dill - 05/20/2021 2:45 PM EDT POPULATION HEALTH NAVIGATION OUTREACH Action/FYI: [employer] Care Gaps Discuss/Due: Advance Directives, Screening Mammogram due 06/02/21 or after Outcome: Patient Declined Scheduling Pt identified by name and : YES, via phone Outreach Outcome/Action Spoke to patient or caregiver: Patient declined Reason for Outreach Care Gap or Scheduling/Wellness visits Payer: Payor: [employer] MEDICARE / Plan: [employer] MEDICARE PPO / [...] 20, 2021 2:45 PM documented in this encounterOhio State East Hospital01-24-2022 History of Present illness Narrative* Claudine Durán MD - 03/14/2021 8:16 AM EST This note was created using CORD:USE Cord Blood Bankter. Subjective Haydee Bustamante is a 75 year [...] positive rheumatoid factor (HCC) 03/07/2015 Dr. Hurley ([facility]) Unspecified hemorrhoids without mention of complication Hemorrhoids [...] (FLONASE) 50 mcg/actuation nasal spray Use 1 Stephen in each nostril once daily. potassium chloride [...] F) Resp 14 Ht 162.6 cm (5' 4) Wt 58.1 kg (128 lb) SpO2 99% [...] 3. Cough R05.9 4. Bronchiectasis without complication ([facility]) J47.9 5. Gastroesophageal reflux disease without esophagitis K21.9 6. Aortic stenosis with bicuspid valve Q23.0 Q23.1 7. Rheumatoid arthritis involving multiple sites with positive rheumatoid factor ([facility]) M05.79 ASSESSMENT/PLAN: 1. Essential hypertension - ICD9: 401.9, ICD10: I10 (primary diagnosis) - good control - Follows with Dr. Messina ([facility] cardiology) - Continue current medication(s) - [...] 714.0, ICD10: M05.79 Stable on meds through [facility]--Dr. Hurley Gets labs through his office. Lipid ordered. I spent a total of at least 30 minutes on the date of the service which included [id number] patient care, completing clinical documentation, obtaining and/or reviewing separately obtained history, performing a medically appropriate examination, counseling and educating the patient/family/caregiver and ordering medications, tests, or procedures. Claudine Durán MD documented in this encounterOhio State East Hospital01-18-2019 History of Past illness Narrative* Problem [...] of this encounter (statuses as of 05/20/2021) [facility] of [facility] Narrative* Problem [...] of this encounter (statuses as of 05/22/2021) [facility] Narrative* Problem [...] of this encounter (statuses as of 05/26/2021) [facility] Narrative* Problem [...] of this encounter (statuses as of 06/06/2021) [facility] Narrative* Problem [...] of this encounter (statuses as of 06/09/2021) [facility] Narrative* Problem [...] of this encounter (statuses as of 06/30/2021) [facility] Narrative* Problem [...] of this encounter (statuses as of 07/25/2021) [facility] Narrative* Problem [...] of this encounter (statuses as of 08/01/2021) [facility] Narrative* Problem [...] of this encounter (statuses as of 08/12/2021) [facility] Narrative* Problem [...] of this encounter (statuses as of 08/23/2021) [facility] Narrative* Problem [...] of this encounter (statuses as of 09/06/2021) [facility] Narrative* Problem [...] of this encounter (statuses as of 09/06/2021) [facility] Narrative* Problem [...] of this encounter (statuses as of 09/07/2021) [facility] Narrative* Problem [...] of this encounter (statuses as of 09/20/2021) [facility] Narrative* Problem [...] of this encounter (statuses as of 09/29/2021) [facility] Narrative* Problem [...] of this encounter (statuses as of 10/13/2021) [facility] Narrative* Problem [...] of this encounter (statuses as of 10/13/2021) [facility] Narrative* Problem [...] of this encounter (statuses as of 10/18/2021) [facility] Narrative* Problem [...] of this encounter (statuses as of 10/18/2021) [facility] Narrative* Problem [...] of this encounter (statuses as of 10/19/2021) [facility] Narrative* Problem [...] of this encounter (statuses as of 10/27/2021) [facility] Narrative* Problem [...] of this encounter (statuses as of 11/01/2021) [facility] Narrative* Problem [...] of this encounter (statuses as of 11/08/2021) [facility] Narrative* Problem [...] of this encounter (statuses as of 11/10/2021) [facility] Narrative* Problem [...] of this encounter (statuses as of 11/10/2021) [facility] Narrative* Problem [...] of this encounter (statuses as of 11/29/2021) [facility] Narrative* Problem [...] of this encounter (statuses as of 12/04/2021) [facility] Narrative* Problem [...] of this encounter (statuses as of 12/22/2021) [facility] N[facility]ative* Problem [...] of this encounter (statuses as of 12/27/2021) [facility] Narrative* Problem [...] of this encounter (statuses as of 01/05/2022) [facility]* Problem [...] of this encounter (statuses as of 01/11/2022) [facility]* Problem [...] of this encounter (statuses as of 01/17/2022) [facility]* Problem [...] of this encounter (statuses as of 01/17/2022) [facility]* Problem [...] of this encounter (statuses as of 02/02/2022) [facility]arrative* Problem [...] of this encounter (statuses as of 02/22/2022) [facility]* Problem [...] of this encounter (statuses as of 02/24/2022) [facility]* Problem [...] of this encounter (statuses as of 03/14/2022) [facility]* Problem [...] of this encounter (statuses as of 03/30/2022) [facility]* Problem [...] of this encounter (statuses as of 04/06/2022) [facility]* Problem [...] of this encounter (statuses as of 04/21/2022) [facility]* Problem [...] of this encounter (statuses as of 05/04/2022) [facility]* Problem [...] of this encounter (statuses as of 05/24/2022) [facility]* Problem [...] of this encounter (statuses as of 06/01/2022) [facility]* Problem [...] of this encounter (statuses as of 06/29/2022) [facility]* Problem [...] of this encounter (statuses as of 07/24/2022) [facility]* Problem [...] of this encounter (statuses as of 07/24/2022) [facility]* Problem [...] of this encounter (statuses as of 08/13/2022) [facility]* Problem [...] of this encounter (statuses as of 08/15/2022) [facility]* Problem [...] of this encounter (statuses as of 09/08/2022) [facility]* Problem [...] of this encounter (statuses as of 09/11/2022) [facility]* Problem [...] of this encounter (statuses as of 09/15/2022) [facility]* Problem [...] of this encounter (statuses as of 09/26/2022) [facility]* Problem [...] of this encounter (statuses as of 10/10/2022) [facility] [facility] Narrative* Problem [...] of this encounter (statuses as of 10/13/2022) [facility] Past [facility] Narrative* Problem [...] of this encounter (statuses as of 10/27/2022) [facility] Past [facility] Narrative* Problem [...] of this encounter (statuses as of 10/27/2022) [facility] Narrative* Problem [...] of this encounter (statuses as of 10/31/2022) [facility] Narrative* Problem [...] of this encounter (statuses as of 10/31/2022) [facility] N[facility]* Problem [...] of this encounter (statuses as of 11/02/2022) [facility] N[facility]* Problem [...] of this encounter (statuses as of 11/10/2022) [facility] N[facility]* Problem [...] of this encounter (statuses as of 11/23/2022) [facility] N[facility]* Problem [...] of this encounter (statuses as of 12/07/2022) [facility] N[facility]* Problem [...] of this encounter (statuses as of 12/07/2022) [facility] N[facility]* Problem [...] of this encounter (statuses as of 12/15/2022) [facility] N[facility]* Problem [...] of this encounter (statuses as of 12/20/2022) [facility] N[facility]* Problem [...] of this encounter (statuses as of 12/24/2022) [facility] N[facility]* Problem [...] of this encounter (statuses as of 12/24/2022) [facility] N[facility]* Problem [...] of this encounter (statuses as of 01/04/2023) [facility]* Problem [...] of this encounter (statuses as of 01/05/2023) [facility] N[facility]* Problem [...] of this encounter (statuses as of 01/10/2023) [facility] N[facility]* Problem [...] of this encounter (statuses as of 01/18/2023) [facility] N[facility]* Problem [...] of this encounter (statuses as of 01/24/2023) [facility] N[facility]* Problem [...] of this encounter (statuses as of 02/03/2023) [facility] N[facility]* Problem [...] of this encounter (statuses as of 02/08/2023) [facility] N[facility]* Problem [...] of this encounter (statuses as of 03/24/2023) [facility] N[facility]* Problem [...] of this encounter (statuses as of 03/27/2023) [facility] N[facility]* Problem [...] of this encounter (statuses as of 04/01/2023) [facility] N[facility]* Problem [...] of this encounter (statuses as of 04/03/2023) [facility] N[facility]ative* Problem [...] of this encounter (statuses as of 04/30/2023) [facility]* Chief Complaint BLOOD IN SPUTUM DEBILITY Reason for Visit Colitis Confusion COVID-19 Generalized weakness Histoplasmosis [facility] Work Phone: Discharge summary Author Jasmyn Chan [facility] April 05, 2023 11:35am Note Date/Time April 05, 2023 11:26am [facility] Medical Records Department [address] [place] [address] Transfer to [facility] MR#: [id number] Acct: [id number] Name: HAYDEE BUSTAMANTE Rep #:[id number] : 1945 77 From: Jasmyn Chan DO PCP: Dr. Claudine Durán MD Status:AD M IN Certification of patient admission REQUIRED AT TIME OF ADMISSION. I CERTIFY THAT POST-HOSPITAL ECF SERVICES ARE REQUIRED TO BE GIVEN ON AN IN-PATIENT BASIS BECAUSE OF THE ABOVE NAMED PATIENT'S NEED FOR CUSTODIAL CARE ON A CONTINUING BASIS FOR THE CONDITION(S) FOR WHICH HE/SHE WAS RECEIVING IN-PATIENT HOSPITAL SERVICES PRIOR TO HIS/HER TRANSFER TO THE [facility]. 04/05/23 1135<Electronically signed by Jasmyn Chan DO> [...] Royal; Leobardo Calloway; Jorgito Agarwal; Rosalina Herrera WHISKEY FILTERER Discharge Orders/Prescriptions Prescriptions: New acetaminophen 325 mg [...] Qty: 0 0RF fluticasone propionate 50 mcg/actuation Stephen,Suspension 1 spray NASAL DAILY Qty: 0 0RF [...] in before D/C Order can be placed): Nursing Home Facility 04/05/23 5739 <Electronically signed by Jasmyn Chan DO> Cosigner [...] Royal MD; Dr. Jorgito Agarwal DO ~ [facility] Work Phone: Discharge summary Author Ron Mariscal [facility] Note Date/Time August 23, 2024 10:29 am [facility] Medical Records Department [address] [place] [address] Emergency Department Summary 08/23/24 MR#: [id number] Acct: [id number] Name: HAYDEE BUSTAMANTE Rep #:[id number] : 1945 79 From: Ron Mariscal MD [...] at any point in time or syncope. [id number]. Lives by herself. 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 She states this morning she laid [...] to if her wrist was not injured [facility] Medical History Hypertension GERD (gastroesophageal reflux disease) [...] suppl ement 03/19/23 10/01/23 History tablet) vitamins A,C,A-xyyo-lyjeki 2,148 2 tab PO BID eye heal [...] tabs Instructions: ON HOLD FOR COLONOSCOPY omega 6-jda-hzm-fish oil 1,200 mg 1 cap PO DAILY [...] motor deficits and no sensory deficits noted [place] Coma Scale: document GCS findings Spontaneous Obeys [...] 82.3 H Lymph % (Auto) 8.1 L [place] % (Auto) 8.6 Eos % (Auto) 0.1 [...] distal radius with intra-articular extension. Reading Location: [facility] Brain CT 08/23/24 08:06 IMPRESSION: 1. Generalized brain atrophy. 2. Small vessel ischemic/degenerative changes. 3. No acute intracranial hemorrhage, midline shift or mass effect. If symptoms persist, further evaluation with MRI is recommended. Reading Location: [facility] Management Discussion w/another healthcare provider: Hospitalist and Rn Hedis (ezekiel amanda) Procedures Upper Extremity Splints Upper [...] functional status Disposition Disposition: Acute Care Hospital [facility] What to do if you have Problems For any increased pain, shortness of breath, bleeding, nausea or vomiting, chestpain, or any unexpected problems, contact your Primary Care Provider. Call [facility] ([phone]) or report to the closest Emergency Room. Call 911 if necessary. 08/23/24 1029 <Electronically signed by Ron Mariscal MD> Cosigner Signature (if applicable): CC: Dr. Claudine Durán MD ~ Signed [facility] Work Phone: Evaluation note* Diagnosis Screening mammogram, encounter for- Primary [facility] Diagnosis Essential hypertension- Primary Unspecified essential hypertension History of COVID-19 Cough Bronchiectasis without complication (HCC) Bronchiectasis without acute exacerbation Gastroesophageal reflux disease without esophagitis Esophageal reflux Aortic stenosis with bicuspid valve Rheumatoid arthritis involving multiple sites with positive rheumatoid factor (HCC) [facility] Diagnosis Embolism and thrombosis (HCC) Embolism and thrombosis of unspecified site [facility]* Diagnosis Moderate COPD (chronic obstructive pulmonary disease) (HCC)- Primary Chronic airway obstruction, not elsewhere classified Bronchiectasis without complication (HCC) Bronchiectasis without acute exacerbation Centrilobular emphysema (HCC) Other emphysema [facility]* Diagnosis Cough due to bronchospasm Acute bronchospasm [facility] Diagnosis Embolism and thrombosis (HCC) Embolism and thrombosis of unspecified site [facility] noteNo assessment information availableWSelect [facility] Work Phone: Evaluation note* Diagnosis Personal history of DVT (deep vein thrombosis)- Primary Personal history of venous thrombosis and embolism [facility] Diagnosis Aortic stenosis with bicuspid valve- Primary Essential hypertension Unspecified essential hypertension [facility] Personal history of DVT (deep vein thrombosis)- Primary Personal history of venous thrombosis and embolism [facility] Diagnosis Encounter for screening mammogram for breast cancer [facility] Diagnosis Gastroesophageal reflux disease without esophagitis- Primary Esophageal reflux Other viral warts Elevated LDL cholesterol level Pure hypercholesterolemia Essential hypertension Unspecified essential hypertension Need for COVID-19 vaccine COPD without exacerbation (HCC) Bronchiectasis without complication (HCC) Bronchiectasis without acute exacerbation [facility] Diagnosis Toe infection- Primary Unspecified local infection of skin and subcutaneous tissue Sinobronchitis Unspecified sinusitis (chronic) [facility] Diagnosis Personal history of DVT (deep vein thrombosis)- Primary Personal history of venous thrombosis and embolism [facility] Diagnosis Abnormal mammogram Abnormal mammogram, unspecified [facility] Diagnosis Ulcer of toe of left foot, limited to breakdown of skin (HCC)- Primary Hammer toe of left foot Onychodystrophy Other specified disease of nail [facility]* Diagnosis Embolism and thrombosis (HCC) Embolism and thrombosis of unspecified site [facility] Diagnosis Ulcer of toe of left foot, limited to breakdown of skin (HCC) Hammer toe of left foot [facility] Ulcer of toe of left foot, limited to breakdown of skin (HCC)- Primary Hammer toe of left foot Hallux rigidus of left foot Hallux rigidus [facility] Diagnosis COPD without exacerbation (HCC) Essential hypertension Unspecified essential hypertension [facility] Diagnosis Essential hypertension- Primary Unspecified essential hypertension Chronic obstructive pulmonary disease, unspecified COPD type (HCC) Encounter for immunization Need for other specified prophylactic vaccination against single bacterial disease Gastroesophageal reflux disease without esophagitis Esophageal reflux Bronchiectasis without complication (HCC) Bronchiectasis without acute exacerbation Aortic stenosis with bicuspid valve [facility] Diagnosis Lung nodules- Primary Other nonspecific abnormal finding of lung field Bronchiectasis without complication (HCC) Bronchiectasis without acute exacerbation Chronic obstructive pulmonary disease, unspecified COPD type (HCC) Rheumatoid arthritis involving multiple sites with positive rheumatoid factor (HCC) [facility] Diagnosis Personal history of DVT (deep vein thrombosis)- Primary Personal history of venous thrombosis and embolism [facility] Diagnosis Rheumatoid arthritis involving multiple sites with positive rheumatoid factor (HCC) Low back pain with right-sided sciatica, unspecified back pain laterality, unspecified chronicity [facility] Diagnosis Rheumatoid arthritis involving multiple sites with positive rheumatoid factor (HCC) Low back pain with right-sided sciatica, unspecified back pain laterality, unspecified chronicity Pseudogout Other disorder of calcium metabolism [facility] Diagnosis Personal history of DVT (deep vein thrombosis)- Primary Personal history of venous thrombosis and embolism [facility] Diagnosis Essential hypertension- Primary Unspecified essential hypertension Chronic anticoagulation Long-term (current) use of 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 Aortic stenosis with bicuspid valve Rheumatoid arthritis involving multiple sites with positive rheumatoid factor (HCC) COPD without exacerbation (HCC) Bronchiectasis without complication (HCC) Bronchiectasis without acute exacerbation Acquired hammertoe of left foot Early dry stage nonexudative age-related macular degeneration of both eyes [facility] Diagnosis Personal history of DVT (deep vein thrombosis)- Primary Personal history of venous thrombosis and embolism [facility] Diagnosis Personal history of DVT (deep vein thrombosis)- Primary Personal history of venous thrombosis and embolism [facility] Diagnosis Personal history of DVT (deep vein thrombosis)- Primary Personal history of venous thrombosis and embolism [facility] Diagnosis Lung nodules- Primary Other nonspecific abnormal finding of lung field Bronchiectasis without complication (HCC) Bronchiectasis without acute exacerbation Rheumatoid arthritis involving multiple sites with positive rheumatoid factor (HCC) [facility] Diagnosis Lung nodules- Primary Other nonspecific abnormal finding of lung field Bronchiectasis without complication (HCC) Bronchiectasis without acute exacerbation [facility] Diagnosis Personal history of DVT (deep vein thrombosis)- Primary Personal history of venous thrombosis and embolism [facility] Diagnosis Aortic stenosis with bicuspid valve- Primary Essential hypertension Unspecified essential hypertension History of recurrent deep vein thrombosis (DVT) [facility] Diagnosis Rheumatoid arthritis involving multiple sites with positive rheumatoid factor (HCC) Low back pain with right-sided sciatica, unspecified back pain laterality, unspecified chronicity Pseudogout Other disorder of calcium metabolism [facility] 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- Primary Long-term (current) use of 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 [facility]* Diagnosis Essential hypertension- Primary Unspecified [...] with bicuspid valve [facility] Diagnosis Chronic anticoagulation Long-term (current) use of 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 [facility]* Diagnosis Chronic anticoagulation Long-term (current) use of 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 [facility]* Diagnosis Personal history of DVT (deep vein thrombosis)- Primary Personal history of venous thrombosis and embolism [facility]* Diagnosis Embolism and thrombosis (HCC)- Primary Embolism and thrombosis of unspecified site [facility]* Diagnosis DDD (degenerative disc disease), lumbar- Primary Degeneration of lumbar or lumbosacral intervertebral disc Hip pain, acute, left Age-related osteoporosis without current pathological fracture Senile osteoporosis [facility]* Diagnosis Embolism and thrombosis (HCC)- Primary Embolism and thrombosis of unspecified site [facility]* Diagnosis Rheumatoid arthritis involving multiple sites with positive rheumatoid factor (HCC) Low back pain with right-sided sciatica, unspecified back pain laterality, unspecified chronicity [facility]* Diagnosis Lung nodules Other nonspecific abnormal finding of lung field [facility]* Diagnosis Encounter for screening mammogram for breast cancer [facility]* Diagnosis Encounter for immunization- Primary Need for other specified prophylactic vaccination against single bacterial disease [facility]* Diagnosis Embolism and thrombosis (HCC)- Primary Embolism and thrombosis of unspecified site [facility] Diagnosis Personal history of DVT (deep vein thrombosis)- Primary Personal history of venous thrombosis and embolism [facility]* Diagnosis Acute cough- Primary documented in this encounter [facility] note* Diagnosis Onset Date Resolution Status Colitis acute Confusion acute COVID-19 acute Generalized weakness acute Histoplasmosis acute [facility] Work Phone: Evaluation note* Diagnosis Onset Date Resolution Status Confusion acute COVID-19 acute Generalized weakness acute Histoplasmosis acute [facility] Work Phone: Evaluation note* Diagnosis Onset Date Resolution Status Confusion acute COVID-19 acute Generalized weakness acute Histoplasmosis acute Adult failure to thrive acut e Cellulitis acute Generalized weakness acute History of DVT (deep vein thrombosis) acute Leg edema acute Rheumatoid arthritis acute Weakness acute [facility] Work Phone: Evaluation note* Diagnosis Hypoalbuminemia- Primary Other disorders of plasma protein metabolism Elevated alkaline phosphatase level Other nonspecific abnormal serum enzyme levels Elevated LFTs Other abnormal blood chemistry Anemia, unspecified type Leukocytosis, unspecified type [facility]* Diagnosis Onset Date Resolution Status Adult failure to thrive acut e Cellulitis acute History of DVT (deep vein thrombosis) acute Leg edema acute Rheumatoid arthritis acute Thrombocytopenia acute Weakness acute Anemia chronic [facility] Work Phone: Evaluation note* Diagnosis Onset [...] acute COPD (chronic obstructive pulmonary disease) chronic [facility] Work Phone: Evaluation note* Diagnosis Onset [...] resolved Edema resolved Failure to thrive resolved [facility] Work Phone: Evaluation note* Diagnosis Rheumatoid arthritis involving multiple sites with positive rheumatoid factor (HCC) Low back pain with right-sided sciatica, unspecified back pain laterality, unspecified chronicity [facility]* Diagnosis Rheumatoid arthritis involving multiple sites with positive rheumatoid factor (HCC) Low back pain with right-sided sciatica, unspecified back pain laterality, unspecified chronicity Pseudogout Other disorder of calcium metabolism [facility]* Diagnosis Personal history of DVT (deep vein thrombosis)- Primary Personal history of venous thrombosis and embolism [facility]* Diagnosis Acute pain of right knee- Primary Chronic anticoagulation Long-term (current) use of 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 Hip pain, acute, left Pain and swelling of right lower leg [facility]* Diagnosis Personal history of DVT (deep vein thrombosis)- Primary Personal history of venous thrombosis and embolism [facility]* Diagnosis Anemia, unspecified type- Primary Elevated LFTs Other abnormal blood chemistry COPD without exacerbation (HCC) Essential hypertension Unspecified essential hypertension Cough due to bronchospasm Acute bronchospasm Chronic anticoagulation Long-term (current) use of 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 Encounter for long-term current use of medication Gastric ulcer with hemorrhage, unspecified chronicity [facility]* Diagnosis Right knee pain, unspecified chronicity- Primary [facility]* Diagnosis prison current use of anticoagulant therapy- Primary Long-term (current) use of 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 [facility]* Diagnosis COPD without exacerbation (HCC) [facility]* Diagnosis COPD without exacerbation (HCC) [facility] Diagnosis Rheumatoid arthritis involving multiple sites with positive rheumatoid factor (HCC)- Primary Edema, unspecified type Encounter for therapeutic drug monitoring [facility]* Diagnosis Personal history of DVT (deep vein thrombosis)- Primary Personal history of venous thrombosis and embolism [facility] Diagnosis Rheumatoid arthritis involving multiple sites with positive rheumatoid factor (HCC)- Primary Pain and swelling of right knee [facility]* Diagnosis Nonrheumatic aortic valve stenosis- Primary Aortic valve disorders Mitral valve stenosis, non-rheumatic Mitral valve disorders Essential hypertension Unspecified essential hypertension Pericardial effusion (noninflammatory) Leg edema Edema prison current use of anticoagulant therapy Long-term (current) use of 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 [facility] Diagnosis Personal history of DVT (deep vein thrombosis)- Primary Personal history of venous thrombosis and embolism [facility]* Diagnosis Disseminated histoplasmosis Histoplasmosis, unspecified without mention of manifestation [facility] Diagnosis COPD without exacerbation (HCC) [facility] Diagnosis Disseminated histoplasmosis- Primary Histoplasmosis, unspecified [...] of digestive system [facility] Diagnosis Edema, unspecified type- Primary [facility] Diagnosis Personal history of DVT (deep vein thrombosis)- Primary Personal history of venous thrombosis and embolism [facility] Anemia, unspecified type- Primary Bilateral lower extremity edema Edema Chronic anticoagulation Long-term (current) use of 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 Moderate to severe aortic stenosis Aortic valve disorders Disseminated histoplasmosis Histoplasmosis, unspecified without mention of manifestation Nodule of lower lobe of left lung Encounter for long-term current use of medication [facility] Diagnosis Edema, unspecified type [facility] Diagnosis Personal history of DVT (deep vein thrombosis)- Primary Personal history of venous thrombosis and embolism [facility] Diagnosis Rheumatoid arthritis involving multiple sites with positive rheumatoid factor (HCC) Low back pain with right-sided sciatica, unspecified back pain laterality, unspecified chronicity [facility] Diagnosis Disseminated histoplasmosis Histoplasmosis, unspecified without mention of manifestation [facility] Diagnosis Aortic valve stenosis, etiology of cardiac valve disease unspecified- Primary Mitral valve stenosis, unspecified etiology Pericardial effusion Unspecified disease of pericardium Gastrointestinal hemorrhage, unspecified gastrointestinal hemorrhage type Rheumatoid arthritis with positive rheumatoid factor, involving unspecified site (HCC) Edema, unspecified type Blood loss anemia Iron deficiency anemia secondary to blood loss (chronic) [facility] Diagnosis Aortic stenosis with bicuspid valve- Primary Pericardial effusion Unspecified disease of pericardium Essential hypertension Unspecified essential hypertension Chronic heart failure with preserved ejection fraction (HFpEF) (HCC) Mitral valve stenosis, non-rheumatic Mitral valve disorders Nonrheumatic tricuspid valve regurgitation Tricuspid valve disorders, specified as nonrheumatic [facility] Diagnosis Personal history of DVT (deep vein thrombosis)- Primary Personal history of venous thrombosis and embolism [facility] Diagnosis Chronic anticoagulation Long-term (current) use of 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 [facility] Diagnosis Personal history of DVT (deep vein thrombosis)- Primary Personal history of venous thrombosis and embolism [facility] Diagnosis Acute cough [facility]* Diagnosis Disseminated histoplasmosis Histoplasmosis, unspecified without mention of manifestation [facility] Diagnosis Personal history of DVT (deep vein thrombosis)- Primary Personal history of venous thrombosis and embolism [facility] Diagnosis Personal history of DVT (deep vein thrombosis)- Primary Personal history of venous thrombosis and embolism [facility] Diagnosis COPD without exacerbation (HCC) [facility]* Diagnosis Disseminated histoplasmosis- Primary Histoplasmosis, unspecified [...] antibiotics Counseling, unspecified [facility] Diagnosis Nonrheumatic aortic valve stenosis- Primary Aortic valve disorders Encounter for preprocedural cardiovascular examination Pre-operative cardiovascular examination Aortic valve disorder Aortic valve disorders [facility] Diagnosis Rheumatoid arthritis with positive rheumatoid factor, involving unspecified site (HCC)- Primary Nonrheumatic aortic valve stenosis Aortic valve disorders Nonrheumatic mitral valve stenosis Pericardial effusion Unspecified disease of pericardium Histoplasmosis Histoplasmosis, unspecified without mention of manifestation [facility] Diagnosis Personal history of DVT (deep vein thrombosis)- Primary Personal history of venous thrombosis and embolism [facility] Diagnosis Disseminated histoplasmosis Histoplasmosis, unspecified without mention of manifestation Nonrheumatic aortic valve stenosis Aortic valve disorders [facility] Diagnosis Chronic heart failure with [...] Aortic valve disorders [facility] Diagnosis Personal history of DVT (deep vein thrombosis)- Primary Personal history of venous thrombosis and embolism Nonrheumatic aortic valve stenosis Aortic valve disorders [facility] Diagnosis Nonrheumatic aortic valve stenosis- Primary Aortic valve disorders Encounter to establish care Other reasons for seeking consultation Pre-operative cardiovascular examination Mitral stenosis with insufficiency, rheumatic Mitral stenosis with insufficiency Rheumatoid arthritis with positive rheumatoid factor, involving unspecified site (HCC) Nonrheumatic aortic valve stenosis Aortic valve disorders [facility] Diagnosis Nonrheumatic aortic valve stenosis Aortic valve disorders Nonrheumatic aortic valve stenosis Aortic valve disorders [facility] Diagnosis Nonrheumatic aortic valve stenosis Aortic [...] [facility] Diagnosis Nonrheumatic aortic valve stenosis Aortic valve disorders [facility] Diagnosis Nonrheumatic aortic valve stenosis- Primary Aortic valve disorders [facility] Diagnosis Nonrheumatic aortic valve stenosis- Primary Aortic valve disorders [facility] Diagnosis Personal history of DVT (deep vein thrombosis)- Primary Personal history of venous thrombosis and embolism [facility] Diagnosis Nonrheumatic aortic valve stenosis- Primary Aortic valve disorders Aortic valve stenosis, etiology of cardiac valve disease unspecified [facility] Diagnosis Nonrheumatic aortic valve stenosis- Primary Aortic valve disorders Aortic valve disorder Aortic valve disorders Aortic valve stenosis, etiology of cardiac valve disease unspecified [facility] Diagnosis Encounter for preoperative anesthesiology assessment for cardiac surgery- Primary Aortic valve stenosis, etiology of cardiac valve disease unspecified [facility]* Diagnosis Nonrheumatic aortic valve stenosis- Primary Aortic valve disorders Aortic valve stenosis, etiology of cardiac valve disease unspecified [facility] Diagnosis Nonrheumatic aortic valve stenosis Aortic valve disorders Aortic valve disorder Aortic valve disorders Aortic valve stenosis, etiology of cardiac valve disease unspecified [facility]* Diagnosis Personal history of DVT (deep vein thrombosis)- Primary Personal history of venous thrombosis and embolism Aortic valve stenosis, etiology of cardiac valve disease unspecified [facility]* Diagnosis Nonrheumatic aortic valve stenosis- Primary Aortic valve disorders [facility]* Diagnosis Nonrheumatic aortic valve stenosis- Primary Aortic valve disorders S/P TAVR (transcatheter aortic valve replacement) Heart valve replaced by other means Chronic diastolic heart failure (HCC) Chronic diastolic heart failure [facility]* Diagnosis Disseminated histoplasmosis- Primary Histoplasmosis, unspecified [...] antibiotics Counseling, unspecified [facility] Diagnosis Medicare annual wellness visit, subsequent- [...] other means [facility] Diagnosis Chronic heart failure with preserved ejection fraction (HCC)- Primary [facility]* Diagnosis COPD without exacerbation (HCC) [facility]* Diagnosis Rheumatoid arthritis involving multiple sites with positive rheumatoid factor (HCC) Low back pain with right-sided sciatica, unspecified back pain laterality, unspecified chronicity [facility] Diagnosis Rheumatoid arthritis involving multiple sites with positive rheumatoid factor (HCC) Low back pain with right-sided sciatica, unspecified back pain laterality, unspecified chronicity [facility]* Diagnosis Personal history of DVT [...] of respiratory system [facility]* Diagnosis S/P TAVR (transcatheter aortic valve [...] of respiratory system [facility] Diagnosis Personal history of DVT (deep vein thrombosis)- Primary Personal history of venous thrombosis and embolism [facility] Author Laine Veras [facility] March 26, 2023 4:04pm Note Date/Time March 26, 2023 4 :05pm [facility] Medical Records Department [address] [place] [address] H&P Exam - Hospitalist 03/26/23 1551 MR#: [id number] Acct: [id number] Name: HAYDEE BUSTAMANTE Rep #:[id number] : 1945 77 From: Laine Veras MD PCP: Dr. Claudine Durán MD Status:AD M ADAIR Location: NH3 [id number] HPI - General General Date of Admission: 03/26/23 Date of Service: 03/26/23 Chief Complaint: Confusion, shortness of breath HPI Narrative HAYDEE BUSTAMANTE, is a 77-year-old female history of hypertension, GERD, RA, PE, severe aortic stenosis and moderate pericardial effusion, histoplasmosis presented to [facility] ED 03/26/2023 with shortness of breath andinability to care for self at home. Recently seen 03/21/2023 in [facility] and transferred to [facility] due to concern for bowel perforation [...] outpatient basis. She was just discharged from [facility] yesterday and today legs are weeping and she is urinating on herself. She was discharged home on Cipro and Flagyl and itraconazole twice daily as well as 4 more days of dexamethasone and given Imodium for diarrhea. She was instructed to hold her hydrochlorothiazide and irbesartan due to kidney function. In [facility] ED patient 96% on room air [...] self at home hospitalist contacted for admission. [facility] at bedside, patient tangential in normal sinus flight of ideas and some bizarre thinking. She reports that she got home yesterday from [facility] and was talking about the fact that she was given a urine pitero and could not pee until today, has [...] oriented but very hard to direct inconversation. [facility] Medical History (Updated 03/26/23 @ 15:59 by [...] Q24H 03/19/23 [History Last Taken Unknown] vitamins A,C,G-rwzq-gmqlug 2,148 mcg-113 mg-45 mg-17.4 mg tablet (PreserVision [...] 80.3 H, Lymph % (Auto) 6.3 L, [place] % (Auto) 9.6, Eos % (Auto) 0.0, [...] for bowel perf treated conservatively -[facility] -On cipro/flagyl, will continue this # Disseminated histoplasmosis -Continue itraconazole twice daily -Patient to follow-up with a Dr. Hart in 3 months # Recent COVID-19 -4 more days of dexamethasone -Tested positive here at the end of February #Hx and mod pericardial effusion -Seen at [facility] and pt advised to f/u outpt [...] Veras MD Charges/Coding Visit Charges Inpatient E&M: 41293 Init Hosp L2 03/26/23 1604 <Electronically signed by Laine Veras MD> Cosigner Signature (if applicable): CC: Dr. Claudine Durán MD; Dr. Laine Veras MD~ Signed [facility] Work Phone: History and physical note Author Laine Veras [facility] March 31, 2023 8:59pm Note Date/Time March 31, 2023 8:20pm [facility] Medical Records Department [address] [place] [address] H&P Exam - Hospitalist 03/31/232011 MR#: [id number] Acct: [id number] Name: HAYDEE BUSTAMANTE Rep #:[id number] : 1945 77 From: Laine Veras MD PCP: Dr. Claudine Durán MD Status:AD M IN Location: U [id number] HPI - General General Date of Admission: 03/31/23 Date of Service: 03/31/23 Chief Complaint: BLE edema and weeping HPI Narrative HAYDEE BUSTAMANTE, is a 77-year-old female history of COPD, Severe . GERD. DVT and PEon Coumadin, histoplasmosis of the lung, RA who presented to [facility] ED 03/31/2023 with bilateral lower extremity edema. She was seen here 03/28/2023 with lower extremity edema. She was initially seen here 03/26/2023 for shortness of breath and inability to care for herself at home after a recent hospital stay at [facility] from which she was discharged on [...] is unsure if she's taking her coumadin [facility] Medical History (Updated 03/31/23 @ 20:42 by [...] Q24H 03/19/23 [History Last Taken Unknown] vitamins A,C,C-nyes-wccdul 2,148 mcg-113 mg-45 mg-17.4 mg tablet (PreserVision [...] 90.8 H, Lymph % (Auto) 3.0 L, [place] % (Auto) 5.0, Eos % (Auto) 0.1, [...] for bowel perf treated conservatively -Treated at [facility] -s/p cipro and flagyl, no present abd complaints # Disseminated histoplasmosis -Continue itraconazole twice daily -Patient to follow-up with a Dr. Hart in 3 months # Recent COVID-19 -Tested positive here end of February -No resp complaints #Hx COPD -Continue inhalers #Hx and mod pericardial effusion -Seen at [facility] and pt advised to f/u outpt [...] documentation, 78Minutes Charges/Coding Visit Charges Inpatient E&M: 11260 Init Hosp L3 03/31/232058 <Electronically signed by Laine Veras MD> Cosigner Signature (if applicable): CC: Dr. Claudine Durán MD; Dr. Laine Veras MD~ Signed [facility] Work Phone: History and physical note Author Erasmo House [facility] Note Date/Time August 23, 2024 11:12 am [facility] Medical Records Department [address] [place] [address] H&P Exam - Hospitalist 08/23/24 1023 MR#: [id number] Acct: [id number] Name: HAYDEE BUSTAMANTE Rep #:[id number] : 1945 79 From: Erasmo Castañeda PCP: Dr. Claudine Durán MD Status:AD [facility] Location: [facility] [id number] HPI - General General Date of Admission: 08/23/24 Date of Service: 07/05/25 Chief Complaint: Fall over left hand and [...] x-ray done in the ED were reviewed. [facility] Medical History Hypertension GERD (gastroesophageal reflux disease) [...] suppl ement 03/19/23 10/01/23 History tablet) vitamins A,C,Q-adlr-whqreb 2,148 2 tab PO BID eye heal th 03/19/23 10/01/23 History mcg-113 mg-45 mg-17.4 mg tablet (PreserVision AREDS) gabapentin 300 mg capsule 300 mg PO Q12 nerve pain #0 caps 04/05/23 10/01/23 Rx potassium chloride 20 mEq 20 meq PO BIDCM #0 tabs 03/10/1210/01/23 Rx tablet,extended release(part/cryst) fluticasone propionate 50 1 [...] Rx (Voltaren Arthritis Pain) #100 grams omega 8-aby-sfi-fish oil 1,200 mg 1 cap PO DAILY [...] (Auto) 82.3 H, Lymph % (Auto) 8.1L, [place] % (Auto) 8.6, Eos % (Auto) 0.1, [...] distal radius with intra-articular extension. Reading Location: [facility] Brain CT 08/23/24 08:06 IMPRESSION: 1. Generalized brain atrophy. 2. Small vessel ischemic/degenerative changes. 3. No acute intracranial hemorrhage, midline shift or mass effect. If symptoms persist, further evaluation with MRI is recommended. Reading Location: [facility] Assessment & Plan Assessment/Plan (1) Closed fracture of distal end of left radius: (2) Closed head injury without concussion: PLAN: Plan This 72-year-old female was brought to ED when she fell down, mechanism unclear resulting into left wrist fracture. 1. Acute debility of ADL due to closed fracture of distal end of left radius/Colles' fracture: [facility] views ofx-ray left wrist x-ray [...] shock if needed Total time spent in ufxe-xs-tzbm encounter in discussion of advanced directive 17 minutes. Laboratory Results 08/23/24 07:45: WBC 7.9, RBC 3.52 L, Hgb 11.3 L, Hct 33.9 L, MCV 96.3, MCH 32.1 H, MCHC 33.3, RDW Std Deviation 58.6 H, RDW Coeff of Catarino 17.0 H, Plt Count 182, MPV 10.9, Immature Gran % (Auto) 0.500, Neut % (Auto) 82.3 H, Lymph % (Auto) 8.1L, [place] % (Auto) 8.6, Eos % (Auto) 0.1, [...] distal radius with intra-articular extension. Reading Location: [facility] Brain CT 08/23/24 08:06 IMPRESSION: 1. Generalized brain atrophy. 2. Small vessel ischemic/degenerative changes. 3. No acute intracranial hemorrhage, midline shift or mass effect. If symptoms persist, further evaluation with MRI is recommended. Reading Location: [facility] Charges/Coding Visit Charges Inpatient E&M: 28776 Init Hosp L3 Procedures Hospitalists Procedures: 94252 Advncd Care Plan 30 Min 08/23/24 1112 <Electronically signed by Erasmo House MD> Cosigner Signature (if applicable): CC: Dr. Claudine Durán MD; Dr. Erasmo House MD~ Signed [facility] Work Phone: Hospital Discharge instructions Additional [...] higher or systolic number then stop the medication.[facility] Work Phone: Reason for referral (narrative)* Outpatient Procedure (Routine) - Authorized Specialty Diagnoses / Procedures Referred By Contac t Referred To Contact [facility] Diagnoses Aortic stenosis with bicuspid valve Essential hypertension Procedures ECHO ECHO TTHRC R-T 2D W/WOM-MODE COMPL SPEC&COLR William Sams DO [address] [place] [address] [facility] [address] [address] Referral ID Status Reason Start Date Expiration Date Visits Requested Visits Authorized [id number] Authorized Auto-Generat ed Referral 08/12/2021 08/12/2022 1 1 * Outpatient Procedure (Routine) - Closed Specialty Diagnoses / Procedures Referred By Contfabian reis Referred To Contact [facility] Diagnoses Aortic stenosis with bicuspid valve Essential hypertension Procedures ECG COMPLETE ECG ROUTINE ECG W/LEAST 12 LDS W/I&R William Messina DO [address] [place] [address] [facility] [address] [address] Referral ID Status Reason Start Date Expiration Date V isits Requested Visits Authorized [id number] Closed Auto-Generate d Referral 08/12/2021 08/12/2022 1 1 [facility] for referral (narrative)* Diagnostic Procedure Only (Routine) - Closed Specialty Diagnoses / Procedures Referred By Contac t Referred To Contact [facility] IMAGING Diagnoses Ulcer of toe of left foot, limited to breakdown of skin (HCC) Hammer toe of left foot Procedures XR FOOT GENERAL 3V AP/LAT/OBL LEFT RADEX FOOT COMPLETE MINIMUM 3 VIEWS Chacho Louise [address] [place] [address] Xr Imaging Referral ID Status Reason Start Date Expiration Date V isits Requested Visits Authorized [id number] Closed Auto-Generate d Referral 10/18/2021 11/17/2022 1 1 [facility] for referral (narrative)* Diagnostic Procedure Only (Routine) - Closed Specialty Diagnoses / Procedures Referred By Contac t Referred To Contact XR IMAGING Diagnoses Ulcer of toe of left foot, limited to breakdown of skin (HCC) Hammer toe of left foot Procedures XR FOOT GENERAL 3V AP/LAT/OBL LEFT RADEX FOOT COMPLETE MINIMUM 3 VIEWS [place] [place] [address] Xr Imaging Referral ID Status Reason Start Date Expiration Date V isits Requested Visits Authorized [id number] Closed Auto-Generate d Referral 10/18/2021 11/17/2022 1 1 [facility] for referral (narrative)* Outpatient Procedure (Routine) - Authorized Specialty Diagnoses / Procedures Referred By Contac t Referred [facility] Diagnoses Aortic stenosis with bicuspid valve Procedures ECHO ECHO TTHRC R-T 2D W/WOM-MODE COMPL SPEC&COLR D Rachlele Schulte, GATE CLERK.TREE DOCTOR [address] [address] [facility] [address] [place] [address] Referral ID Status Reason Start Date Expiration Date Visits Requested Visits Authorized [id number] Authorized Auto-Generat ed Referral 08/29/2022 08/29/2023 1 1 [facility] for referral (narrative)* Diagnostic Procedure Only (Routine) - Authorized Specialty Diagnoses / Procedures Referred By Contac t Referred To Contact [facility] Diagnoses Encounter for screening mammogram for breast cancer Procedures SABINO SCREENING W ALIZE SCREENING DIGITAL BREAST TOMOSYNTHESIS BI SCREENING MAMMOGRAPHY BI 2-VIEW BREAST INC CAD Jimbo Swanson, [employer] PROGRAM[employer] [address] [place] [address] [facility] [address] [place] [address] Referral ID Status Reason Start Date Expiration Date Visits Requested Visits Authorized [id number] Authorized Auto-Generat ed Referral 10/27/2022 11/26/2023 1 1 * Diagnostic Procedure Only (Routine) - Pending Review Specialty Diagnoses / Procedures Referred By Contac t Referred To Contact [facility] Diagnoses Encounter for screening mammogram for breast cancer Procedures SABINO SCREENING SCREENING MAMMOGRAPHY BI 2-VIEW BREAST INC CAD Jimbo Swanson, [employer]IE[employer] PROGRAMMER [address] [place] [address] [facility] [address] [place] [address] Referral ID Status Reason Start Date Expiration Date Visits Requested Visits Authorized [id number] Pending Review Auto-Generat ed Referral 10/27/2022 11/26/2023 1 1 [facility] for referral (narrative)* Diagnostic Procedure Only (Routine) - Closed Specialty Diagnoses / Procedures Referred By Contac t Referred To Contact [facility] Diagnoses Encounter for screening mammogram for breast cancer Procedures SABINO SCREENING W ALIZE SCREENING DIGITAL BREAST TOMOSYNTHESIS BI SCREENING MAMMOGRAPHY BI 2-VIEW BREAST INC CAD Jimbo Swanson APRN.[employer] PROGRAMMER [address] [place] [address] [facility] [address] [place] [address] Referral ID Status Reason Start Date Expiration Date V isits Requested Visits Authorized [id number] Closed Auto-Generate d Referral 10/27/2022 11/26/2023 1 1 [facility] for referral (narrative)* Outpatient Procedure (Urgent) - Authorized Specialty Diagnoses / Procedures Referred By Contac t Referred [facility] Diagnoses Acute pain of right knee Pain and swelling of right lower leg Procedures US LEG VEIN DVT UNL VAS LAB DUP-SCAN XTR VEINS UNILATERAL/LIMITED STUDY Jimbo Swanson APRN.CNS [address] [place] [address] [facility] [address] [place] [address] Referral ID Status Reason Start Date Expiration Date Visits Requested Visits Authorized [id number] Authorized Auto-Generat ed Referral 07/10/2023 07/09/2024 1 1 [facility] for referral (narrative)* Diagnostic Procedure Only (Routine) - Pending Review Specialty Diagnoses / Procedures Referred By Contac t Referred To Contact XR IMAGING Diagnoses Right knee pain, unspecified chronicity Procedures XR LEG FRONTAL HIP TO ANKLE MECHANICAL AXIS BONE LENGTH STUDIES London Short PA-C [address] [place] [address] [place] [address] Referral ID Status Reason Start Date Expiration Date Visits Requested Visits Authorized [id number] Pending Review Auto-Generat ed Referral 07/18/2023 08/15/2024 1 1 * Diagnostic Procedure Only (Routine) - Pending Review Specialty Diagnoses / Procedures Referred By Contac t Referred To Contact XR IMAGING Diagnoses Right knee pain, unspecified chronicity Procedures XR KNEE GENERAL 4V AP BOTH/PA BOTH/LAT/MERC RIGHT RADIOLOGIC EXAM KNEE COMPLETE 4/MORE VIEWS London Short PA-C [address] [place] [address] Imaging [facility]95 Referral ID Status Reason Start Date Expiration Date Visits Requested Visits Authorized [id number] Pending Review Auto-Generat ed Referral 07/18/2023 08/15/2024 1 1 [facility] for referral (narrative)* Outpatient Procedure (Routine) - Pending Review Specialty Diagnoses / Procedures Referred By Contac t Referred To Contact [facility] [place] Diagnoses Nonrheumatic aortic valve stenosis Mitral valve stenosis, non-rheumatic Essential hypertension Pericardial effusion (noninflammatory) Procedures ECHO LIMITED ECHO TRANSTHORAC R-T 2D W/WO M-MODE REC COMP William Messina DO [address] [place] [address] [facility] [place] [address] [id number] Referral ID Status Reason Start Date Expiration Date Visits Requested Visits Authorized [id number] Pending Review Auto-Generat ed Referral 08/27/2023 08/26/2024 1 1 [facility] for referral (narrative)* Outpatient Procedure (Routine) - Authorized Specialty Diagnoses / Procedures Referred By Contac t Referred To Contact [facility] Diagnoses Pericardial effusion Procedures ECHO LIMITED ECHO TRANSTHORAC R-T 2D W/WO M-MODE REC COMP Bibi Alegria, GATE CLERK.TREE DOCTOR [address] [place] [address] [facility] [place] [address] [place] [address] Referral ID Status Reason Start Date Expiration Date Visits Requested Visits Authorized [id number] Authorized Auto-Generat ed Referral 10/17/2024 1 1 [facility] for referral (narrative)* Outpatient Procedure (Routine) - New Request Specialty Diagnoses / Procedures Referred By Divya reis Referred To Contact [facility] [place] Diagnoses Nonrheumatic aortic valve stenosis Aortic valve disorder Procedures ECG COMPLETE ECG ROUTINE ECG W/LEAST 12 LDS W/I&R Monica Aguila APRN.TREE DOCTOR [address] [id number] [place] [address] Referral ID Status Reason Start Date Expiration Date Visits Requested Visits Authorized [id number] New Request Auto-Generat ed Referral 4 01/07/2025 1 1 * Outpatient Procedure (Routine) - New Request Specialty Diagnoses / Procedures Referred By Divya reis Referred To Contact [facility] Diagnoses Nonrheumatic aortic valve stenosis Aortic valve disorder Procedures ECHO ECHO TTHRC R-T 2D W/WOM-MODE COMPL SPEC&COLR D Monica Aguila APRN.TREE DOCTOR [address] [id number] [place] [id number] Referral ID Status Reason Start Date Expiration Date Visits Requested Visits Authorized [id number] New Request Auto-Generat ed Referral 4 01/07/2025 1 1 * Diagnostic Procedure Only (Routine) - New Request Specialty Diagnoses / Procedures Referred By Divya reis Referred To Contact [facility] Diagnoses Nonrheumatic aortic valve stenosis Procedures NM SPECT/CT CARDIAC AMYLOID RP LOCLZJ MARY SPECT W/CT 1 AREA 1 DAY IMAGING Monica Aguila APRN.TREE DOCTOR [address] [place] [address] [facility] [address] [place] [address] Referral ID Status Reason Start Date Expiration Date Visits Requested Visits Authorized [id number] New Request Auto-Generat ed Referral 4 02/06/2025 1 1 * MRI/CT (Routine) - New Request Specialty Diagnoses / Procedures Referred By Divya t Referred To Contact CT IMAGING Diagnoses Nonrheumatic aortic valve stenosis Encounter for preprocedural cardiovascular examination Procedures CTA CHEST/ABD/PEL (GATED) W IVCON CT ANGIOGRAPHY CHEST W/CONTRAST/NONCONTRAST CT ANGIO ABD&PLVIS CNTRST MTRL W/WO CNTRST Monica Zavala APRN.CNP [address] [place] [address] Ct Imaging [place] [address] Referral ID Status Reason Start Date Expiration Date Visits Requested Visits Authorized [id number] New Request Auto-Generat ed Referral 4 02/06/2025 1 1 * Outpatient Procedure (Routine) - New Request Specialty Diagnoses / Procedures Referred By Divya reis [facility] Diagnoses Nonrheumatic aortic valve stenosis Procedures LUNG DIFFUSION CAPACITY (DLCO) DIFFUSING CAPACITY Monica Aguila APRN.TREE DOCTOR [address] [place] [address] [facility] [place] [address] [place] [address] Referral ID Status Reason Start Date Expiration Date Visits Requested Visits Authorized [id number] New Request Auto-Generat ed Referral 4 02/06/2025 1 1 * Outpatient Procedure (Routine) - New Request Specialty Diagnoses / Procedures Referred By Divya reis Referred [facility] Diagnoses Nonrheumatic aortic valve stenosis Procedures SPIROMETRY BASELINE ONLY SPMTRY W/VC EXPIRATORY MILTON W/WO MXML VOL VNTJ TrentMonica Lr APRN.TREE DOCTOR [address] [place] [address] [facility] [place] [address] [place] [address] Referral ID Status Reason Start Date Expiration Date Visits Requested Visits Authorized [id number] New Request Auto-Generat ed Referral 02/06/2025 1 1 [facility] for referral (narrative)* Diagnostic Procedure Only (Routine) - Closed Specialty Diagnoses / Procedures Referred By Divya reis Referred To Contact [facility]AGING Diagnoses Nonrheumatic aortic valve stenosis Procedures NM SPECT/CT CARDIAC AMYLOID RP LOCLZJ MARY SPECT W/CT 1 AREA 1 DAY IMAGING Monica Aguila APRN.CNP [address] [place] [address] [facility] [address] [place] [address] Referral ID Status Reason Start Date Expiration Date V isits Requested Visits Authorized [id number] Closed Auto-Generate d Referral 01/08/2024 02/06/2025 1 1 [facility] for referral (narrative)* Transition of Care (Routine) - Authorized Specialty Diagnoses / Procedures Referred By Divya reis Referred To Contact [facility] Procedures CARDIOVASCULAR MEDICINE OP FOLLOW UP APPT ORDER Monica Aguila APRN.CNP [address] [place] [address] Phone: tel: fax: [facility] [place] [address] [place] [address] Referral ID Status Reason Start Date Expiration Date Visits Requested Visits Authorized [id number] Authorized PCP Requested Referral 04/30/2024 04/30/2025 1 1 [facility] for referral (narrative)* Transition of Care (Routine) - Authorized Specialty Diagnoses / Procedures Referred By Contac t Referred To Contact [facility] Procedures CARDIOVASCULAR MEDICINE OP [place]LLOW [place] [address] [place] [address] Phone: tel: [facility] [place] [address] [place] [address] Referral ID Status Reason Start Date Expiration Date Visits Requested Visits Authorized [id number] Authorized PCP Requested Referral 05/05/2024 05/05/2025 1 1 [facility] for referral (narrative)No reason for referral information availableWSelect [facility] Work Phone: [facility] for referral (narrative)* Transition of Care (Routine) - Authorized Specialty Diagnoses / Procedures Referred By Contac t Referred To Contact [facility] Procedures CARDIOVASCULAR MEDICINE OP FOLLOW UP APPT ORDER Brissa Chester APRN.CNP [address] [place] [address] Phone: tel: fax: [facility] [address] [address] Referral ID Status Reason Start Date Expiration Date Visits Requested Visits Authorized [id number] Authorized PCP Requested Referral 07/22/2024 07/22/2025 1 1 [facility] for visit Narrative* Diagnostic Procedure Only (Routine) - Closed Specialty Diagnoses / Procedures Referred By Contac t Referred To Contact XR IMAGING Diagnoses Ulcer of toe of left foot, limited to breakdown of skin (HCC) Hammer toe of left foot Procedures XR FOOT GENERAL 3V AP/LAT/OBL LEFT RADEX FOOT COMPLETE MINIMUM [address] [place] [address] [place] [address] Xr Imaging Referral ID Status Reason Start Date Expiration Date V isits Requested Visits Authorized [id number] Closed Auto-Generate d Referral 10/18/2021 11/17/2022 1 1 [facility] for visit Narrative* Diagnostic Procedure Only (Routine) - Closed Specialty Diagnoses / Procedures Referred By Divya t Referred To Contact BR IMAGING Diagnoses Encounter for screening mammogram for breast cancer Procedures SABINO SCREENING W ALIZE SCREENING DIGITAL BREAST TOMOSYNTHESIS BI SCREENING MAMMOGRAPHY BI 2-VIEW BREAST INC CAD Jimbo Swanson, GATE CLERK.RPG PROGRAMMER [address] [place] [address] Br Imaging [address] [place] [address] Referral ID Status Reason Start Date Expiration Date V isits Requested Visits Authorized [id number] Closed Auto-Generate d Referral 10/27/2022 11/26/2023 1 1 [facility] for visit Narrative* Diagnostic Procedure Only (Urgent) - Closed Specialty Diagnoses / Procedures Referred By Divya reis Referred To Contact XR IMAGING Diagnoses Hip pain, acute, left Procedures XR HIP GENERAL 3V PELV/AP/LAT LEFT RADEX HIP UNILATERAL WITH PELVIS 2-3 VIEWS Ernie Belcher, GATE CLERK.TREE DOCTOR [address] [place] [address] [place] [address] Referral ID Status Reason Start Date Expiration Date V isits Requested Visits Authorized [id number] Closed Auto-Generate d Referral 12/31/2021 01/30/2023 1 1 [facility] for visit Narrative* Diagnostic Procedure Only (Routine) - Closed Specialty Diagnoses / Procedures Referred By Divya t Referred To Contact [facility] Diagnoses Nonrheumatic aortic valve stenosis Procedures NM SPECT/CT CARDIAC AMYLOID RP LOCLZJ MARY SPECT W/CT 1 AREA 1 DAY IMAGING Monica Aguila, GATE CLERK.TREE DOCTOR [address] [place] [address] [facility] [address] [place] [address] Referral ID Status Reason Start Date Expiration Date V isits Requested Visits Authorized [id number] Closed Auto-Generate d Referral 01/08/2024 02/06/2025 1 1 [facility] Summary Purpose Family History No Family History Records FoundNo Family History Records FoundNo Family History Records FoundNo Family History Records FoundNo Family History Records FoundNo Family History Records Found Advance Directives No Advanced Directives Records FoundDocuments on File Type Date Recorded Patient Grounds Foreman Expl anation Advance Directive(s) 02/25/2018 1:19 PM [...] Documents on File Type Date Recorded Patient Grounds Foreman Expl anation Advance Directive(s) 03/24/2019 12:16 PM Advance Directive(s) 03/02/2018 11:28 AM Advance Directive(s) 02/25/2018 1:11 PM Advance Directive(s) 02/25/2018 1:19 PM Advance Directive(s) 01/25/2018 9:15 AM Advance Directive(s) 07/30/2017 2:22 PM Documents on File Type Date Recorded Patient Grounds Foreman Expl anation Advance Directive(s) 03/24/2019 12:16 PM Advance Directive(s) 03/02/2018 11:28 AM Advance Directive(s) 02/25/2018 1:11 PM Advance Directive(s) 02/25/2018 1:19 PM Advance Directive(s) 01/25/2018 9:15 AM Advance Directive(s) 07/30/2017 2:22 PM Latest Code Status on File Code Status Date Activated Date Inactivated Comments Full Code 03/02/2018 6:22 PM 03/03/2018 4:33 PM Documents on File Type Date Recorded Patient Grounds Foreman Expl anation Advance Directive(s) 02/25/2018 1:19 PM [...] Will No March 19 10:06am Power of Coiled Tubing Supervisor No March 19, 2023 10:06am Latest Code [...] Will No March 28 4:31pm Power of Coiled Tubing Supervisor No March 28, 2023 4:31pm Name of Medical Power of Coiled Tubing Supervisor diallo araiza March 26, 2023 5:06pm Advance Directive Response Recorded Date/ Time Living Will No March 31 5:01pm Power of Coiled Tubing Supervisor No March 31, 2023 5:01pm Name of Medical Power of Coiled Tubing Supervisor diallo elainediandra March 26, 2023 5:06pm Advance Directive Response Recorded Date/ Time Name of Medical Power of Coiled Tubing Supervisor Milena Elainediandra and Padmini Chang March 31, 2023 9:38pm Living Will Yes April 04 4:12pm Power of Coiled Tubing Supervisor Yes April 04, 2023 4:12pm Name of Medical Power of Coiled Tubing Supervisor diallo elainediandra March 26, 2023 5:06pm Advance Directive Response Recorded Date/ Time Name of Medical Power of Coiled Tubing Supervisor Milena Araiza and Padmini Chang March 31, 2023 9:38pm Name of Medical Power of Coiled Tubing Supervisor diallo araiza March 26, 2023 5:06pm Name of Medical Power of Coiled Tubing Supervisor Suzie Ag), friend April 09, 2023 2:27pm Living Will Yes April 09, 024 2:27pm Power of Coiled Tubing Supervisor Yes April 09, 2023 2:27pm Advance Directive Response Recorded Date/ Time Name of Medical Power of Coiled Tubing Supervisor Milena Araiza and Padmini Chang March 31, 2023 10:38pm Name of Medical Power of Coiled Tubing Supervisor diallo araiza March 26, 2023 6:06pm Name of Medical Power of Coiled Tubing Supervisor Suzie Ag), friend April 09, 2023 3:27pm Living Will Yes April 09 024 3:27pm Power of Coiled Tubing Supervisor Yes April 09, 2023 3:27pm Date Activated Date Inactivated Comments 03/22/2023 3:19 PM 03/25/2023 9:30 PM Question Answer Comments Full Code Order Discussed With: PatientSurrogate Decision Maker Surrogate Decision Maker Name: Milena Araiza and José Miguel adames Charlene (Friends) Date Activated Date Inactivated Comments 03/02/2018 6:22 PM 03/03/2018 4:33 PM Question Answer Comments Full Code Order Discussed With: Patient Advance Directive Response Recorded Date/ Time Advance Directives on File Yes May 28, 2024 8:37am Living Will Yes May 28, 2024 8:37am Do you have a Healthcare Power of Coiled Tubing Supervisor? Yes May 28, 2024 8:37am Advance Directive Response Recorded Date/ Time Advance Directives on File Yes May 28, 2024 8:37am Living Will Yes May 28, 2024 8:37am Do you have a Healthcare Power of Coiled Tubing Supervisor? Yes May 28, 2024 8:37am Do you have a Healthcare Power of Coiled Tubing Supervisor? Yes August 23, 2024 11:43am Name of Medical Power of Coiled Tubing Supervisor Milena Araiza August 23, 2024 7:33am Advance Directive Response Recorded Date/ Time Do you have a Healthcare Power of Coiled Tubing Supervisor? Yes August 23, 2024 11:43am Name of Medical Power of Coiled Tubing Supervisor Milena Araiza August 23, 2024 7:33am Reason for Referral Specialty Diagnoses / Procedures Referred By Contac t Referred To Contact CT IMAGING Diagnoses Lung nodules Procedures CT CHEST WO IVCON DIAGNOSTIC COMPUTED TOMOGRAPHY THORAX W/O Florence Duncan MD [address] [place] [address] Ct Imaging Referral ID Status Reason Start Date Expiration Date Visits Requested Visits Authorized [id number] Authorized Auto-Generat ed Referral 12/29/2022 1 1 Specialty Diagnoses / Procedures Referred By Contac t Referred To Contact CT IMAGING Diagnoses Lung nodules Bronchiectasis without complication (HCC) Procedures CT CHEST WO IVCON DIAGNOSTIC COMPUTED TOMOGRAPHY THORAX W/O Florence Duncan MD [address] [place] [address] Ct Imaging Referral ID Status Reason Start Date Expiration Date Visits Requested Visits Authorized [id number] Authorized Auto-Generat ed Referral 01/23/2023 08/23/2023 1 1 Specialty Diagnoses / Procedures Referred By Contac t Referred To Contact CT IMAGING Diagnoses Lung nodules Procedures CT CHEST WO IVCON DIAGNOSTIC COMPUTED TOMOGRAPHY THORAX W/O Florence Duncan MD [address] [place] [address] [place] [address] Referral ID Status Reason Start Date Expiration Date V isits Requested Visits Authorized [id number] Closed Auto-Generate d Referral 11/29/2021 12/29/2022 1 1 Specialty Diagnoses / Procedures Referred By Contac t Referred To Contact Claudine Durán MD [address] [place] [address] Referral ID Status Reason Start Date Expiration Date Visits Re quested Visits Authorized [id number] Closed 1 1 Specialty Diagnoses / Procedures Referred By Contac t Referred To Contact Orthopedics Diagnoses Rheumatoid arthritis involving multiple sites with positive rheumatoid factor (HCC) Pain and swelling of right knee Procedures CONSULT TO ORTHOPAEDICS OFFICE/OUTPATIENT [facility] 60 MINUTES Jimbo Swanson, GATE CLERK.RPG PROGRAMMER [address] [place] [address] Referral ID Status Reason Start Date Expiration Date Visits Requested Visits Authorized [id number] Authorized PCP Requested Referral 07/13/2023 07/12/2024 1 1 Specialty Diagnoses / Procedures Referred By Contac t Referred To Contact CT IMAGING Diagnoses Disseminated histoplasmosis Procedures CT CHEST WO IVCON DIAGNOSTIC COMPUTED TOMOGRAPHY THORAX W/O CNTRST Geno Hart MD [address] [place] [address] [place] [address] Referral ID Status Reason Start Date Expiration Date V isits Requested Visits Authorized [id number] Closed Auto-Generate d Referral 08/30/2023 02/19/2024 1 1 Specialty Diagnoses / Procedures Referred By Contac t Referred To Contact Cardiology Diagnoses Aortic valve stenosis, etiology of cardiac valve disease unspecified Mitral valve stenosis, unspecified etiology Pericardial effusion Procedures CONSULT TO CARDIOLOGY OFFICE/OUTPATIENT [facility] 60 MINUTES Jimbo Swanson, GATE CLERK.RPG PROGRAMMER [address] [place] [address] Referral ID Status Reason Start Date Expiration Date Visits Requested Visits Authorized [id number] Authorized PCP Requested Referral 10/11/2023 10/10/2024 1 1 Specialty Diagnoses / Procedures Referred By Contac t Referred [facility] Contact [facility] Diagnoses Nonrheumatic aortic valve stenosis Nonrheumatic mitral valve stenosis Pericardial effusion Rheumatoid arthritis with positive rheumatoid factor, involving unspecified site (HCC) Histoplasmosis Procedures CARDIOVASCULAR MEDICINE OP FOLLOW UP APPT ORDER Ines Drew MD [address] [place] [address] [facility] [place] [facility] [place] [address] Referral ID Status Reason Start Date Expiration Date Visits Requested Visits Authorized [id number] Ref Not Required PCP Requested Referral 07/07/2024 01/07/2025 1 1 Specialty Diagnoses / Procedures Referred By Contac t Referred To Contact [facility] Procedures CARDIOVASCULAR MEDICINE OP [place]LLOW [place] [address] [place] [address] [facility] [address] [place] [address] Referral ID Status Reason Start Date Expiration Date Visits Requested Visits Authorized [id number] Authorized PCP Requested Referral 03/21/2024 03/21/2025 1 1 Specialty Diagnoses / Procedures Referred By Divya reis Referred To Contact [facility] Procedures CARDIOVASCULAR MEDICINE OP FOLLOW UP APPT ORDER Monica Aguila APRN.CNP [address] [place] [address] [address] Referral ID Status Reason Start Date Expiration Date Visits Requested Visits Authorized [id number] Authorized PCP Requested Referral 03/25/2024 03/25/2025 1 [...] Date High Risk Chronic Disease Home Monitoring [facility] 07/05/2022 Active Problems Noted Date Diagnosed Date High Risk Chronic Disease Home Monitoring [facility] 07/05/2022 Chief Complaint and Reason [...] AND EXTREMITY SWELLING RIGHT LEG SWELLING LABWORK CUSTODIAL LAB WORK LABWORK Reason for Visit Histoplasmosis [...] AND EXTREMITY SWELLING RIGHT LEG SWELLING LABWORK CUSTODIAL LAB WORK LABWORK LABWORK CUSTODIAL LAB WORK Reason for Visit Histoplasmosis History [...] AND EXTREMITY SWELLING RIGHT LEG SWELLING LABWORK CUSTODIAL LAB WORK LABWORK LABWORK LABWORK CUSTODIAL LAB WORK Reason for Visit Histoplasmosis History [...] AND EXTREMITY SWELLING RIGHT LEG SWELLING LABWORK CUSTODIAL LAB WORK LABWORK LABWORK LABWORK CUSTODIAL LAB WORK LABWORK Reason for Visit Histoplasmosis [...] AND EXTREMITY SWELLING RIGHT LEG SWELLING LABWORK CUSTODIAL LAB WORK LABWORK LABWORK LABWORK CUSTODIAL LAB WORK LABWORK CUSTODIAL LAB WORK Reason for Visit Histoplasmosis History [...] LEG SWELLING ADMISSION EXAM LABWORK ADMISSION EXAM CUSTODIAL LAB WORK LABWORK LABWORK LABWORK CUSTODIAL LAB WORK LABWORK LABWORK LABWORK LABWORK CUSTODIAL LAB WORK LABWORK Reason for Visit Histoplasmosis [...] 10:24am Closed head injury without concussion Ju ly 2024 10:24am Chief Complaint Admit Date S/P [...] 10:24am Closed head injury without concussion Ju ly 2024 10:24am Declining functional status August 23 10:24am Chief Complaint Admit Date S/P TAVR May 28, 2024 7:55 am s/p TAVR June 18, 2024 9:1 5am AORTICE VALVE STENOSIS (SWANSON) June 20, 2024 10:07am s/p TAVR July 18, 2024 9:15a m s/p TAVR August 18, 2024 9:15 am s/p TAVR August 20, 2024 7:17a m FALL August 23, 2024 10:24 am fallAugust 24, 2024 8:49a m fallAugust 25, 2024 6:19p m fallAugust 26, 2024 4:54p m fallAugust 27, 2024 11:58 am LAB WORK August 28, 2024 5:00 am LABWORK September 01, 2024 5:00 am LABWORK September 08, 2024 5:00 am Chief Complaint Admit Date s/p TAVR June 18, 2024 9:1 5am AORTICE VALVE STENOSIS (SWANSON) June 20, 2024 10:07am s/p TAVR July 18, 2024 9:15a m s/p TAVR August 18, 2024 9:15 am s/p TAVR August 20, 2024 7:17a m fallAugust 23, 2024 10:24 am fallAugust 24, 2024 8:49a m fallAugust 25, 2024 6:19p m fallAugust 26, 2024 4:54p m fallAugust 27, 2024 11:58 am LAB WORK August 28, 2024 5:00 am LABWORK September 01, 2024 5:00 am Admission Exam September 02, 2024 2:09 pm LAB WORK September 04, 2024 5:00 am LABWORK September 08, 2024 5:00 am LAB WORK September 11, 2024 5:00 am LAB WORK September 15, 2024 4:00 am LAB WORK September 18, 2024 5:00 am LAB WORK September 25, 2024 4:0 0am Chief Complaint Admit Date s/p TAVR June 18, 2024 9:1 5am AORTICE VALVE STENOSIS (SWANSON) June 20, 2024 10:07am s/p TAVR July 18, 2024 9:15a m s/p TAVR August 18, 2024 9:15 am s/p TAVR August 20, 2024 7:17a m fallAugust 23, 2024 10:24 am fallAugust 24, 2024 8:49a m fallAugust 25, 2024 6:19p m fallAugust 26, 2024 4:54p m fallAugust 27, 2024 11:58 am LAB WORK August 28, 2024 5:00 am Admission Exam August 28, 2024 5:11 pm LABWORK September 01, 2024 5:00 am Admission Exam September 02, 2024 2:09 pm LAB WORK September 04, 2024 5:00 am LABWORK September 08, 2024 5:00 am LAB WORK September 11, 2024 5:00 am LAB WORK September 15, 2024 4:00 am LAB WORK September 18, 2024 5:00 am LAB WORK September 25, 2024 4:0 0am Additional Source Comments INFORMATION SOURCE (unrecogn ized section and content) DATE CREATED AUTHOR 08/15/2017 [facility] DATE CREATED AUTHOR AUTHOR'S ORGANIZ ATION [facility]/10/2018 [facility] DATE CREATED AUTHOR AUTHOR'S ORGANIZ ATION 09/04/2023 [facility] DATE CREATED AUTHOR AUTHOR'S ORGANIZ ATION 01/07/2024 [facility] DATE CREATED AUTHOR AUTHOR'S ORGANIZ ATION 10/17/2024 [facility] DATE CREATED AUTHOR AUTHOR'S ORGANIZ ATION 10/18/2024 [facility] Source Comments (unrecognize d section and content) In the event this informatio n is protected by the Federal Confidentiality of Alcohol and Drug Abuse Patient Records regulations: The Federal rules restrict any use of the information to criminally investigate or prosecute any alcohol or drug abuse patient.[facility] the event this information is protected by the Federal Confidentiality of Alcohol and Drug Abuse Patient Records regulations: The Federal rules restrict any use of the information to criminally investigate or prosecute any alcohol or drug abuse patient.[facility] Hospital[facility] the event this information is protected by the Federal Confidentiality of Alcohol and Drug Abuse Patient Records regulations: The Federal rules restrict any use of the information to criminally investigate or prosecute any alcohol or drug abuse patient.[facility] Hospital[facility] the event this information is protected by the Federal Confidentiality of Alcohol and Drug Abuse Patient Records regulations: The Federal rules restrict any use of the information to criminally investigate or prosecute any alcohol or drug abuse patient.[facility] Hospital[facility] the event this information is protected by the Federal Confidentiality of Alcohol and Drug Abuse Patient Records regulations: The Federal rules restrict any use of the information to criminally investigate or prosecute any alcohol or drug abuse patient.[facility]In the event this information is protected by the Federal Confidentiality of Alcohol and Drug Abuse Patient Records regulations: The Federal rules restrict any use of the information to criminally investigate or prosecute any alcohol or drug abuse patient.[facility]In the event this information is protected by the Federal Confidentiality of Alcohol and Drug Abuse Patient Records regulations: The Federal rules restrict any use of the information to criminally investigate or prosecute any alcohol or drug abuse patient.[facility]In the event this information is protected by the Federal Confidentiality of Alcohol and Drug Abuse Patient Records regulations: The Federal rules restrict any use of the information to criminally investigate or prosecute any alcohol or drug abuse patient.[facility]In the event this information is protected by the Federal Confidentiality of Alcohol and Drug Abuse Patient Records regulations: The Federal rules restrict any use of the information to criminally investigate or prosecute any alcohol or drug abuse patient.[facility]In the event this information is protected by the Federal Confidentiality of Alcohol and Drug Abuse Patient Records regulations: The Federal rules restrict any use of the information to criminally investigate or prosecute any alcohol or drug abuse patient.[facility]In the event this information is protected by the Federal Confidentiality of Alcohol and Drug Abuse Patient Records regulations: The Federal rules restrict any use of the information to criminally investigate or prosecute any alcohol or drug abuse patient.[facility]In the event this information is protected by the Federal Confidentiality of Alcohol and Drug Abuse Patient Records regulations: The Federal rules restrict any use of the information to criminally investigate or prosecute any alcohol or drug abuse patient.[facility]In the event this information is protected by the Federal Confidentiality of Alcohol and Drug Abuse Patient Records regulations: The Federal rules restrict any use of the information to criminally investigate or prosecute any alcohol or drug abuse patient.[facility]In the event this information is protected by the Federal Confidentiality of Alcohol and Drug Abuse Patient Records regulations: The Federal rules restrict any use of the information to criminally investigate or prosecute any alcohol or drug abuse patient.[facility]In the event this information is protected by the Federal Confidentiality of Alcohol and Drug Abuse Patient Records regulations: The Federal rules restrict any use of the information to criminally investigate or prosecute any alcohol or drug abuse patient.[facility]In the event this information is protected by the Federal Confidentiality of Alcohol and Drug Abuse Patient Records regulations: The Federal rules restrict any use of the information to criminally investigate or prosecute any alcohol or drug abuse patient.[facility]In the event this information is protected by the Federal Confidentiality of Alcohol and Drug Abuse Patient Records regulations: The Federal rules restrict any use of the information to criminally investigate or prosecute any alcohol or drug abuse patient.[facility]In the event this information is protected by the Federal Confidentiality of Alcohol and Drug Abuse Patient Records regulations: The Federal rules restrict any use of the information to criminally investigate or prosecute any alcohol or drug abuse patient.[facility]In the event this information is protected by the Federal Confidentiality of Alcohol and Drug Abuse Patient Records regulations: The Federal rules restrict any use of the information to criminally investigate or prosecute any alcohol or drug abuse patient.[facility] HospitalIn the event this information is protected by the Federal Confidentiality of Alcohol and Drug Abuse Patient Records regulations: The Federal rules restrict any use of the information to criminally investigate or prosecute any alcohol or drug abuse patient.[facility] HospitalIn the event this information is protected by the Federal Confidentiality of Alcohol and Drug Abuse Patient Records regulations: The Federal rules restrict any use of the information to criminally investigate or prosecute any alcohol or drug abuse patient.[facility]In the event this information is protected by the Federal Confidentiality of Alcohol and Drug Abuse Patient Records regulations: The Federal rules restrict any use of the information to criminally investigate or prosecute any alcohol or drug abuse patient.[facility] HospitalIn the event this information is protected by the Federal Confidentiality of Alcohol and Drug Abuse Patient Records regulations: The Federal rules restrict any use of the information to criminally investigate or prosecute any alcohol or drug abuse patient.[facility] HospitalIn the event this information is protected by the Federal Confidentiality of Alcohol and Drug Abuse Patient Records regulations: The Federal rules restrict any use of the information to criminally investigate or prosecute any alcohol or drug abuse patient.[facility] HospitalIn the event this information is protected by the Federal Confidentiality of Alcohol and Drug Abuse Patient Records regulations: The Federal rules restrict any use of the information to criminally investigate or prosecute any alcohol or drug abuse patient.[facility] HospitalIn the event this information is protected by the Federal Confidentiality of Alcohol and Drug Abuse Patient Records regulations: The Federal rules restrict any use of the information to criminally investigate or prosecute any alcohol or drug abuse patient.[facility] HospitalIn the event this information is protected by the Federal Confidentiality of Alcohol and Drug Abuse Patient Records regulations: The Federal rules restrict any use of the information to criminally investigate or prosecute any alcohol or drug abuse patient.[facility] HospitalIn the event this information is protected by the Federal Confidentiality of Alcohol and Drug Abuse Patient Records regulations: The Federal rules restrict any use of the information to criminally investigate or prosecute any alcohol or drug abuse patient.[facility]In the event this information is protected by the Federal Confidentiality of Alcohol and Drug Abuse Patient Records regulations: The Federal rules restrict any use of the information to criminally investigate or prosecute any alcohol or drug abuse patient.[facility] HospitalIn the event this information is protected by the Federal Confidentiality of Alcohol and Drug Abuse Patient Records regulations: The Federal rules restrict any use of the information to criminally investigate or prosecute any alcohol or drug abuse patient.[facility] HospitalIn the event this information is protected by the Federal Confidentiality of Alcohol and Drug Abuse Patient Records regulations: The Federal rules restrict any use of the information to criminally investigate or prosecute any alcohol or drug abuse patient.[facility] HospitalIn the event this information is protected by the Federal Confidentiality of Alcohol and Drug Abuse Patient Records regulations: The Federal rules restrict any use of the information to criminally investigate or prosecute any alcohol or drug abuse patient.[facility]In the event this information is protected by the Federal Confidentiality of Alcohol and Drug Abuse Patient Records regulations: The Federal rules restrict any use of the information to criminally investigate or prosecute any alcohol or drug abuse patient.[facility] HospitalIn the event this information is protected by the Federal Confidentiality of Alcohol and Drug Abuse Patient Records regulations: The Federal rules restrict any use of the information to criminally investigate or prosecute any alcohol or drug abuse patient.[facility] HospitalIn the event this information is protected by the Federal Confidentiality of Alcohol and Drug Abuse Patient Records regulations: The Federal rules restrict any use of the information to criminally investigate or prosecute any alcohol or drug abuse patient.[facility]In the event this information is protected by the Federal Confidentiality of Alcohol and Drug Abuse Patient Records regulations: The Federal rules restrict any use of the information to criminally investigate or prosecute any alcohol or drug abuse patient.[facility]In the event this information is protected by the Federal Confidentiality of Alcohol and Drug Abuse Patient Records regulations: The Federal rules restrict any use of the information to criminally investigate or prosecute any alcohol or drug abuse patient.[facility]In the event this information is protected by the Federal Confidentiality of Alcohol and Drug Abuse Patient Records regulations: The Federal rules restrict any use of the information to criminally investigate or prosecute any alcohol or drug abuse patient.[facility]In the event this information is protected by the Federal Confidentiality of Alcohol and Drug Abuse Patient Records regulations: The Federal rules restrict any use of the information to criminally investigate or prosecute any alcohol or drug abuse patient.[facility]In the event this information is protected by the Federal Confidentiality of Alcohol and Drug Abuse Patient Records regulations: The Federal rules restrict any use of the information to criminally investigate or prosecute any alcohol or drug abuse patient.[facility]In the event this information is protected by the Federal Confidentiality of Alcohol and Drug Abuse Patient Records regulations: The Federal rules restrict any use of the information to criminally investigate or prosecute any alcohol or drug abuse patient.[facility]In the event this information is protected by the Federal Confidentiality of Alcohol and Drug Abuse Patient Records regulations: The Federal rules restrict any use of the information to criminally investigate or prosecute any alcohol or drug abuse patient.[facility]In the event this information is protected by the Federal Confidentiality of Alcohol and Drug Abuse Patient Records regulations: The Federal rules restrict any use of the information to criminally investigate or prosecute any alcohol or drug abuse patient.[facility]In the event this information is protected by the Federal Confidentiality of Alcohol and Drug Abuse Patient Records regulations: The Federal rules restrict any use of the information to criminally investigate or prosecute any alcohol or drug abuse patient.[facility] HospitalIn the event this information is protected by the Federal Confidentiality of Alcohol and Drug Abuse Patient Records regulations: The Federal rules restrict any use of the information to criminally investigate or prosecute any alcohol or drug abuse patient.[facility]In the event this information is protected by the Federal Confidentiality of Alcohol and Drug Abuse Patient Records regulations: The Federal rules restrict any use of the information to criminally investigate or prosecute any alcohol or drug abuse patient.[facility]In the event this information is protected by the Federal Confidentiality of Alcohol and Drug Abuse Patient Records regulations: The Federal rules restrict any use of the information to criminally investigate or prosecute any alcohol or drug abuse patient.[facility]In the event this information is protected by the Federal Confidentiality of Alcohol and Drug Abuse Patient Records regulations: The Federal rules restrict any use of the information to criminally investigate or prosecute any alcohol or drug abuse patient.[facility]In the event this information is protected by the Federal Confidentiality of Alcohol and Drug Abuse Patient Records regulations: The Federal rules restrict any use of the information to criminally investigate or prosecute any alcohol or drug abuse patient.[facility]In the event this information is protected by the Federal Confidentiality of Alcohol and Drug Abuse Patient Records regulations: The Federal rules restrict any use of the information to criminally investigate or prosecute any alcohol or drug abuse patient.[facility]In the event this information is protected by the Federal Confidentiality of Alcohol and Drug Abuse Patient Records regulations: The Federal rules restrict any use of the information to criminally investigate or prosecute any alcohol or drug abuse patient.[facility]In the event this information is protected by the Federal Confidentiality of Alcohol and Drug Abuse Patient Records regulations: The Federal rules restrict any use of the information to criminally investigate or prosecute any alcohol or drug abuse patient.[facility]In the event this information is protected by the Federal Confidentiality of Alcohol and Drug Abuse Patient Records regulations: The Federal rules restrict any use of the information to criminally investigate or prosecute any alcohol or drug abuse patient.[facility]In the event this information is protected by the Federal Confidentiality of Alcohol and Drug Abuse Patient Records regulations: The Federal rules restrict any use of the information to criminally investigate or prosecute any alcohol or drug abuse patient.[facility]In the event this information is protected by the Federal Confidentiality of Alcohol and Drug Abuse Patient Records regulations: The Federal rules restrict any use of the information to criminally investigate or prosecute any alcohol or drug abuse patient.[facility]In the event this information is protected by the Federal Confidentiality of Alcohol and Drug Abuse Patient Records regulations: The Federal rules restrict any use of the information to criminally investigate or prosecute any alcohol or drug abuse patient.[facility]In the event this information is protected by the Federal Confidentiality of Alcohol and Drug Abuse Patient Records regulations: The Federal rules restrict any use of the information to criminally investigate or prosecute any alcohol or drug abuse patient.[facility]In the event this information is protected by the Federal Confidentiality of Alcohol and Drug Abuse Patient Records regulations: The Federal rules restrict any use of the information to criminally investigate or prosecute any alcohol or drug abuse patient.[facility]In the event this information is protected by the Federal Confidentiality of Alcohol and Drug Abuse Patient Records regulations: The Federal rules restrict any use of the information to criminally investigate or prosecute any alcohol or drug abuse patient.[facility]In the event this information is protected by the Federal Confidentiality of Alcohol and Drug Abuse Patient Records regulations: The Federal rules restrict any use of the information to criminally investigate or prosecute any alcohol or drug abuse patient.[facility]In the event this information is protected by the Federal Confidentiality of Alcohol and Drug Abuse Patient Records regulations: The Federal rules restrict any use of the information to criminally investigate or prosecute any alcohol or drug abuse patient.[facility]In the event this information is protected by the Federal Confidentiality of Alcohol and Drug Abuse Patient Records regulations: The Federal rules restrict any use of the information to criminally investigate or prosecute any alcohol or drug abuse patient.[facility]In the event this information is protected by the Federal Confidentiality of Alcohol and Drug Abuse Patient Records regulations: The Federal rules restrict any use of the information to criminally investigate or prosecute any alcohol or drug abuse patient.[facility]In the event this information is protected by the Federal Confidentiality of Alcohol and Drug Abuse Patient Records regulations: The Federal rules restrict any use of the information to criminally investigate or prosecute any alcohol or drug abuse patient.[facility]In the event this information is protected by the Federal Confidentiality of Alcohol and Drug Abuse Patient Records regulations: The Federal rules restrict any use of the information to criminally investigate or prosecute any alcohol or drug abuse patient.[facility]In the event this information is protected by the Federal Confidentiality of Alcohol and Drug Abuse Patient Records regulations: The Federal rules restrict any use of the information to criminally investigate or prosecute any alcohol or drug abuse patient.[facility]In the event this information is protected by the Federal Confidentiality of Alcohol and Drug Abuse Patient Records regulations: The Federal rules restrict any use of the information to criminally investigate or prosecute any alcohol or drug abuse patient.[facility]In the event this information is protected by the Federal Confidentiality of Alcohol and Drug Abuse Patient Records regulations: The Federal rules restrict any use of the information to criminally investigate or prosecute any alcohol or drug abuse patient.[facility]In the event this information is protected by the Federal Confidentiality of Alcohol and Drug Abuse Patient Records regulations: The Federal rules restrict any use of the information to criminally investigate or prosecute any alcohol or drug abuse patient.[facility]In the event this information is protected by the Federal Confidentiality of Alcohol and Drug Abuse Patient Records regulations: The Federal rules restrict any use of the information to criminally investigate or prosecute any alcohol or drug abuse patient.[facility]In the event this information is protected by the Federal Confidentiality of Alcohol and Drug Abuse Patient Records regulations: The Federal rules restrict any use of the information to criminally investigate or prosecute any alcohol or drug abuse patient.[facility]In the event this information is protected by the Federal Confidentiality of Alcohol and Drug Abuse Patient Records regulations: The Federal rules restrict any use of the information to criminally investigate or prosecute any alcohol or drug abuse patient.[facility]In the event this information is protected by the Federal Confidentiality of Alcohol and Drug Abuse Patient Records regulations: The Federal rules restrict any use of the information to criminally investigate or prosecute any alcohol or drug abuse patient.[facility]In the event this information is protected by the Federal Confidentiality of Alcohol and Drug Abuse Patient Records regulations: The Federal rules restrict any use of the information to criminally investigate or prosecute any alcohol or drug abuse patient.[facility]In the event this information is protected by the Federal Confidentiality of Alcohol and Drug Abuse Patient Records regulations: The Federal rules restrict any use of the information to criminally investigate or prosecute any alcohol or drug abuse patient.[facility]In the event this information is protected by the Federal Confidentiality of Alcohol and Drug Abuse Patient Records regulations: The Federal rules restrict any use of the information to criminally investigate or prosecute any alcohol or drug abuse patient.[facility]In the event this information is protected by the Federal Confidentiality of Alcohol and Drug Abuse Patient Records regulations: The Federal rules restrict any use of the information to criminally investigate or prosecute any alcohol or drug abuse patient.[facility]In the event this information is protected by the Federal Confidentiality of Alcohol and Drug Abuse Patient Records regulations: The Federal rules restrict any use of the information to criminally investigate or prosecute any alcohol or drug abuse patient.[facility]In the event this information is protected by the Federal Confidentiality of Alcohol and Drug Abuse Patient Records regulations: The Federal rules restrict any use of the information to criminally investigate or prosecute any alcohol or drug abuse patient.[facility]In the event this information is protected by the Federal Confidentiality of Alcohol and Drug Abuse Patient Records regulations: The Federal rules restrict any use of the information to criminally investigate or prosecute any alcohol or drug abuse patient.[facility]In the event this information is protected by the Federal Confidentiality of Alcohol and Drug Abuse Patient Records regulations: The Federal rules restrict any use of the information to criminally investigate or prosecute any alcohol or drug abuse patient.[facility]In the event this information is protected by the Federal Confidentiality of Alcohol and Drug Abuse Patient Records regulations: The Federal rules restrict any use of the information to criminally investigate or prosecute any alcohol or drug abuse patient.[facility]In the event this information is protected by the Federal Confidentiality of Alcohol and Drug Abuse Patient Records regulations: The Federal rules restrict any use of the information to criminally investigate or prosecute any alcohol or drug abuse patient.[facility]In the event this information is protected by the Federal Confidentiality of Alcohol and Drug Abuse Patient Records regulations: The Federal rules restrict any use of the information to criminally investigate or prosecute any alcohol or drug abuse patient.[facility]In the event this information is protected by the Federal Confidentiality of Alcohol and Drug Abuse Patient Records regulations: The Federal rules restrict any use of the information to criminally investigate or prosecute any alcohol or drug abuse patient.[facility]In the event this information is protected by the Federal Confidentiality of Alcohol and Drug Abuse Patient Records regulations: The Federal rules restrict any use of the information to criminally investigate or prosecute any alcohol or drug abuse patient.[facility]In the event this information is protected by the Federal Confidentiality of Alcohol and Drug Abuse Patient Records regulations: The Federal rules restrict any use of the information to criminally investigate or prosecute any alcohol or drug abuse patient.[facility]In the event this information is protected by the Federal Confidentiality of Alcohol and Drug Abuse Patient Records regulations: The Federal rules restrict any use of the information to criminally investigate or prosecute any alcohol or drug abuse patient.[facility]In the event this information is protected by the Federal Confidentiality of Alcohol and Drug Abuse Patient Records regulations: The Federal rules restrict any use of the information to criminally investigate or prosecute any alcohol or drug abuse patient.[facility] HospitalIn the event this information is protected by the Federal Confidentiality of Alcohol and Drug Abuse Patient Records regulations: The Federal rules restrict any use of the information to criminally investigate or prosecute any alcohol or drug abuse patient.[facility]In the event this information is protected by the Federal Confidentiality of Alcohol and Drug Abuse Patient Records regulations: The Federal rules restrict any use of the information to criminally investigate or prosecute any alcohol or drug abuse patient.[facility] HospitalIn the event this information is protected by the Federal Confidentiality of Alcohol and Drug Abuse Patient Records regulations: The Federal rules restrict any use of the information to criminally investigate or prosecute any alcohol or drug abuse patient.[facility] HospitalIn the event this information is protected by the Federal Confidentiality of Alcohol and Drug Abuse Patient Records regulations: The Federal rules restrict any use of the information to criminally investigate or prosecute any alcohol or drug abuse patient.[facility] HospitalIn the event this information is protected by the Federal Confidentiality of Alcohol and Drug Abuse Patient Records regulations: The Federal rules restrict any use of the information to criminally investigate or prosecute any alcohol or drug abuse patient.[facility] HospitalIn the event this information is protected by the Federal Confidentiality of Alcohol and Drug Abuse Patient Records regulations: The Federal rules restrict any use of the information to criminally investigate or prosecute any alcohol or drug abuse patient.[facility] HospitalIn the event this information is protected by the Federal Confidentiality of Alcohol and Drug Abuse Patient Records regulations: The Federal rules restrict any use of the information to criminally investigate or prosecute any alcohol or drug abuse patient.[facility] HospitalIn the event this information is protected by the Federal Confidentiality of Alcohol and Drug Abuse Patient Records regulations: The Federal rules restrict any use of the information to criminally investigate or prosecute any alcohol or drug abuse patient.[facility]In the event this information is protected by the Federal Confidentiality of Alcohol and Drug Abuse Patient Records regulations: The Federal rules restrict any use of the information to criminally investigate or prosecute any alcohol or drug abuse patient.[facility] HospitalIn the event this information is protected by the Federal Confidentiality of Alcohol and Drug Abuse Patient Records regulations: The Federal rules restrict any use of the information to criminally investigate or prosecute any alcohol or drug abuse patient.[facility] HospitalIn the event this information is protected by the Federal Confidentiality of Alcohol and Drug Abuse Patient Records regulations: The Federal rules restrict any use of the information to criminally investigate or prosecute any alcohol or drug abuse patient.[facility] HospitalIn the event this information is protected by the Federal Confidentiality of Alcohol and Drug Abuse Patient Records regulations: The Federal rules restrict any use of the information to criminally investigate or prosecute any alcohol or drug abuse patient.[facility] HospitalIn the event this information is protected by the Federal Confidentiality of Alcohol and Drug Abuse Patient Records regulations: The Federal rules restrict any use of the information to criminally investigate or prosecute any alcohol or drug abuse patient.[facility] HospitalIn the event this information is protected by the Federal Confidentiality of Alcohol and Drug Abuse Patient Records regulations: The Federal rules restrict any use of the information to criminally investigate or prosecute any alcohol or drug abuse patient.[facility] HospitalIn the event this information is protected by the Federal Confidentiality of Alcohol and Drug Abuse Patient Records regulations: The Federal rules restrict any use of the information to criminally investigate or prosecute any alcohol or drug abuse patient.[facility] HospitalIn the event this information is protected by the Federal Confidentiality of Alcohol and Drug Abuse Patient Records regulations: The Federal rules restrict any use of the information to criminally investigate or prosecute any alcohol or drug abuse patient.[facility] HospitalIn the event this information is protected by the Federal Confidentiality of Alcohol and Drug Abuse Patient Records regulations: The Federal rules restrict any use of the information to criminally investigate or prosecute any alcohol or drug abuse patient.[facility] HospitalIn the event this information is protected by the Federal Confidentiality of Alcohol and Drug Abuse Patient Records regulations: The Federal rules restrict any use of the information to criminally investigate or prosecute any alcohol or drug abuse patient.[facility] HospitalIn the event this information is protected by the Federal Confidentiality of Alcohol and Drug Abuse Patient Records regulations: The Federal rules restrict any use of the information to criminally investigate or prosecute any alcohol or drug abuse patient.[facility] HospitalIn the event this information is protected by the Federal Confidentiality of Alcohol and Drug Abuse Patient Records regulations: The Federal rules restrict any use of the information to criminally investigate or prosecute any alcohol or drug abuse patient.[facility] HospitalIn the event this information is protected by the Federal Confidentiality of Alcohol and Drug Abuse Patient Records regulations: The Federal rules restrict any use of the information to criminally investigate or prosecute any alcohol or drug abuse patient.[facility] HospitalIn the event this information is protected by the Federal Confidentiality of Alcohol and Drug Abuse Patient Records regulations: The Federal rules restrict any use of the information to criminally investigate or prosecute any alcohol or drug abuse patient.[facility] HospitalIn the event this information is protected by the Federal Confidentiality of Alcohol and Drug Abuse Patient Records regulations: The Federal rules restrict any use of the information to criminally investigate or prosecute any alcohol or drug abuse patient.[facility] HospitalIn the event this information is protected by the Federal Confidentiality of Alcohol and Drug Abuse Patient Records regulations: The Federal rules restrict any use of the information to criminally investigate or prosecute any alcohol or drug abuse patient.[facility] HospitalIn the event this information is protected by the Federal Confidentiality of Alcohol and Drug Abuse Patient Records regulations: The Federal rules restrict any use of the information to criminally investigate or prosecute any alcohol or drug abuse patient.[facility] HospitalIn the event this information is protected by the Federal Confidentiality of Alcohol and Drug Abuse Patient Records regulations: The Federal rules restrict any use of the information to criminally investigate or prosecute any alcohol or drug abuse patient.[facility] HospitalIn the event this information is protected by the Federal Confidentiality of Alcohol and Drug Abuse Patient Records regulations: The Federal rules restrict any use of the information to criminally investigate or prosecute any alcohol or drug abuse patient.[facility] HospitalIn the event this information is protected by the Federal Confidentiality of Alcohol and Drug Abuse Patient Records regulations: The Federal rules restrict any use of the information to criminally investigate or prosecute any alcohol or drug abuse patient.[facility] HospitalIn the event this information is protected by the Federal Confidentiality of Alcohol and Drug Abuse Patient Records regulations: The Federal rules restrict any use of the information to criminally investigate or prosecute any alcohol or drug abuse patient.[facility] HospitalIn the event this information is protected by the Federal Confidentiality of Alcohol and Drug Abuse Patient Records regulations: The Federal rules restrict any use of the information to criminally investigate or prosecute any alcohol or drug abuse patient.[facility] HospitalIn the event this information is protected by the Federal Confidentiality of Alcohol and Drug Abuse Patient Records regulations: The Federal rules restrict any use of the information to criminally investigate or prosecute any alcohol or drug abuse patient.[facility] HospitalIn the event this information is protected by the Federal Confidentiality of Alcohol and Drug Abuse Patient Records regulations: The Federal rules restrict any use of the information to criminally investigate or prosecute any alcohol or drug abuse patient.[facility] HospitalIn the event this information is protected by the Federal Confidentiality of Alcohol and Drug Abuse Patient Records regulations: The Federal rules restrict any use of the information to criminally investigate or prosecute any alcohol or drug abuse patient.[facility] HospitalIn the event this information is protected by the Federal Confidentiality of Alcohol and Drug Abuse Patient Records regulations: The Federal rules restrict any use of the information to criminally investigate or prosecute any alcohol or drug abuse patient.[facility] HospitalIn the event this information is protected by the Federal Confidentiality of Alcohol and Drug Abuse Patient Records regulations: The Federal rules restrict any use of the information to criminally investigate or prosecute any alcohol or drug abuse patient.[facility]In the event this information is protected by the Federal Confidentiality of Alcohol and Drug Abuse Patient Records regulations: The Federal rules restrict any use of the information to criminally investigate or prosecute any alcohol or drug abuse patient.[facility] HospitalIn the event this information is protected by the Federal Confidentiality of Alcohol and Drug Abuse Patient Records regulations: The Federal rules restrict any use of the information to criminally investigate or prosecute any alcohol or drug abuse patient.[facility] HospitalIn the event this information is protected by the Federal Confidentiality of Alcohol and Drug Abuse Patient Records regulations: The Federal rules restrict any use of the information to criminally investigate or prosecute any alcohol or drug abuse patient.[facility] HospitalIn the event this information is protected by the Federal Confidentiality of Alcohol and Drug Abuse Patient Records regulations: The Federal rules restrict any use of the information to criminally investigate or prosecute any alcohol or drug abuse patient.[facility] HospitalIn the event this information is protected by the Federal Confidentiality of Alcohol and Drug Abuse Patient Records regulations: The Federal rules restrict any use of the information to criminally investigate or prosecute any alcohol or drug abuse patient.[facility] HospitalIn the event this information is protected by the Federal Confidentiality of Alcohol and Drug Abuse Patient Records regulations: The Federal rules restrict any use of the information to criminally investigate or prosecute any alcohol or drug abuse patient.[facility] HospitalIn the event this information is protected by the Federal Confidentiality of Alcohol and Drug Abuse Patient Records regulations: The Federal rules restrict any use of the information to criminally investigate or prosecute any alcohol or drug abuse patient.[facility] HospitalIn the event this information is protected by the Federal Confidentiality of Alcohol and Drug Abuse Patient Records regulations: The Federal rules restrict any use of the information to criminally investigate or prosecute any alcohol or drug abuse patient.[facility] HospitalIn the event this information is protected by the Federal Confidentiality of Alcohol and Drug Abuse Patient Records regulations: The Federal rules restrict any use of the information to criminally investigate or prosecute any alcohol or drug abuse patient.[facility] HospitalIn the event this information is protected by the Federal Confidentiality of Alcohol and Drug Abuse Patient Records regulations: The Federal rules restrict any use of the information to criminally investigate or prosecute any alcohol or drug abuse patient.[facility] HospitalIn the event this information is protected by the Federal Confidentiality of Alcohol and Drug Abuse Patient Records regulations: The Federal rules restrict any use of the information to criminally investigate or prosecute any alcohol or drug abuse patient.[facility] HospitalIn the event this information is protected by the Federal Confidentiality of Alcohol and Drug Abuse Patient Records regulations: The Federal rules restrict any use of the information to criminally investigate or prosecute any alcohol or drug abuse patient.[facility] HospitalIn the event this information is protected by the Federal Confidentiality of Alcohol and Drug Abuse Patient Records regulations: The Federal rules restrict any use of the information to criminally investigate or prosecute any alcohol or drug abuse patient.[facility] HospitalIn the event this information is protected by the Federal Confidentiality of Alcohol and Drug Abuse Patient Records regulations: The Federal rules restrict any use of the information to criminally investigate or prosecute any alcohol or drug abuse patient.[facility] HospitalIn the event this information is protected by the Federal Confidentiality of Alcohol and Drug Abuse Patient Records regulations: The Federal rules restrict any use of the information to criminally investigate or prosecute any alcohol or drug abuse patient.[facility] HospitalIn the event this information is protected by the Federal Confidentiality of Alcohol and Drug Abuse Patient Records regulations: The Federal rules restrict any use of the information to criminally investigate or prosecute any alcohol or drug abuse patient.[facility] HospitalIn the event this information is protected by the Federal Confidentiality of Alcohol and Drug Abuse Patient Records regulations: The Federal rules restrict any use of the information to criminally investigate or prosecute any alcohol or drug abuse patient.[facility] HospitalIn the event this information is protected by the Federal Confidentiality of Alcohol and Drug Abuse Patient Records regulations: The Federal rules restrict any use of the information to criminally investigate or prosecute any alcohol or drug abuse patient.[facility] HospitalIn the event this information is protected by the Federal Confidentiality of Alcohol and Drug Abuse Patient Records regulations: The Federal rules restrict any use of the information to criminally investigate or prosecute any alcohol or drug abuse patient.[facility] HospitalIn the event this information is protected by the Federal Confidentiality of Alcohol and Drug Abuse Patient Records regulations: The Federal rules restrict any use of the information to criminally investigate or prosecute any alcohol or drug abuse patient.[facility] HospitalIn the event this information is protected by the Federal Confidentiality of Alcohol and Drug Abuse Patient Records regulations: The Federal rules restrict any use of the information to criminally investigate or prosecute any alcohol or drug abuse patient.[facility] HospitalIn the event this information is protected by the Federal Confidentiality of Alcohol and Drug Abuse Patient Records regulations: The Federal rules restrict any use of the information to criminally investigate or prosecute any alcohol or drug abuse patient.[facility] HospitalIn the event this information is protected by the Federal Confidentiality of Alcohol and Drug Abuse Patient Records regulations: The Federal rules restrict any use of the information to criminally investigate or prosecute any alcohol or drug abuse patient.[facility] HospitalIn the event this information is protected by the Federal Confidentiality of Alcohol and Drug Abuse Patient Records regulations: The Federal rules restrict any use of the information to criminally investigate or prosecute any alcohol or drug abuse patient.[facility]In the event this information is protected by the Federal Confidentiality of Alcohol and Drug Abuse Patient Records regulations: The Federal rules restrict any use of the information to criminally investigate or prosecute any alcohol or drug abuse patient.[facility] HospitalIn the event this information is protected by the Federal Confidentiality of Alcohol and Drug Abuse Patient Records regulations: The Federal rules restrict any use of the information to criminally investigate or prosecute any alcohol or drug abuse patient.[facility] HospitalIn the event this information is protected by the Federal Confidentiality of Alcohol and Drug Abuse Patient Records regulations: The Federal rules restrict any use of the information to criminally investigate or prosecute any alcohol or drug abuse patient.[facility] HospitalIn the event this information is protected by the Federal Confidentiality of Alcohol and Drug Abuse Patient Records regulations: The Federal rules restrict any use of the information to criminally investigate or prosecute any alcohol or drug abuse patient.[facility] HospitalIn the event this information is protected by the Federal Confidentiality of Alcohol and Drug Abuse Patient Records regulations: The Federal rules restrict any use of the information to criminally investigate or prosecute any alcohol or drug abuse patient.[facility] HospitalIn the event this information is protected by the Federal Confidentiality of Alcohol and Drug Abuse Patient Records regulations: The Federal rules restrict any use of the information to criminally investigate or prosecute any alcohol or drug abuse patient.[facility] HospitalIn the event this information is protected by the Federal Confidentiality of Alcohol and Drug Abuse Patient Records regulations: The Federal rules restrict any use of the information to criminally investigate or prosecute any alcohol or drug abuse patient.[facility] HospitalIn the event this information is protected by the Federal Confidentiality of Alcohol and Drug Abuse Patient Records regulations: The Federal rules restrict any use of the information to criminally investigate or prosecute any alcohol or drug abuse patient.[facility] HospitalIn the event this information is protected by the Federal Confidentiality of Alcohol and Drug Abuse Patient Records regulations: The Federal rules restrict any use of the information to criminally investigate or prosecute any alcohol or drug abuse patient.[facility] HospitalIn the event this information is protected by the Federal Confidentiality of Alcohol and Drug Abuse Patient Records regulations: The Federal rules restrict any use of the information to criminally investigate or prosecute any alcohol or drug abuse patient.[facility] HospitalIn the event this information is protected by the Federal Confidentiality of Alcohol and Drug Abuse Patient Records regulations: The Federal rules restrict any use of the information to criminally investigate or prosecute any alcohol or drug abuse patient.[facility] HospitalIn the event this information is protected by the Federal Confidentiality of Alcohol and Drug Abuse Patient Records regulations: The Federal rules restrict any use of the information to criminally investigate or prosecute any alcohol or drug abuse patient.[facility] HospitalIn the event this information is protected by the Federal Confidentiality of Alcohol and Drug Abuse Patient Records regulations: The Federal rules restrict any use of the information to criminally investigate or prosecute any alcohol or drug abuse patient.[facility]In the event this information is protected by the Federal Confidentiality of Alcohol and Drug Abuse Patient Records regulations: The Federal rules restrict any use of the information to criminally investigate or prosecute any alcohol or drug abuse patient.[facility]In the event this information is protected by the Federal Confidentiality of Alcohol and Drug Abuse Patient Records regulations: The Federal rules restrict any use of the information to criminally investigate or prosecute any alcohol or drug abuse patient.[facility] HospitalIn the event this information is protected by the Federal Confidentiality of Alcohol and Drug Abuse Patient Records regulations: The Federal rules restrict any use of the information to criminally investigate or prosecute any alcohol or drug abuse patient.[facility]In the event this information is protected by the Federal Confidentiality of Alcohol and Drug Abuse Patient Records regulations: The Federal rules restrict any use of the information to criminally investigate or prosecute any alcohol or drug abuse patient.[facility]In the event this information is protected by the Federal Confidentiality of Alcohol and Drug Abuse Patient Records regulations: The Federal rules restrict any use of the information to criminally investigate or prosecute any alcohol or drug abuse patient.[facility] HospitalIn the event this information is protected by the Federal Confidentiality of Alcohol and Drug Abuse Patient Records regulations: The Federal rules restrict any use of the information to criminally investigate or prosecute any alcohol or drug abuse patient.[facility] HospitalIn the event this information is protected by the Federal Confidentiality of Alcohol and Drug Abuse Patient Records regulations: The Federal rules restrict any use of the information to criminally investigate or prosecute any alcohol or drug abuse patient.[facility]In the event this information is protected by the Federal Confidentiality of Alcohol and Drug Abuse Patient Records regulations: The Federal rules restrict any use of the information to criminally investigate or prosecute any alcohol or drug abuse patient.[facility]In the event this information is protected by the Federal Confidentiality of Alcohol and Drug Abuse Patient Records regulations: The Federal rules restrict any use of the information to criminally investigate or prosecute any alcohol or drug abuse patient.[facility] HospitalIn the event this information is protected by the Federal Confidentiality of Alcohol and Drug Abuse Patient Records regulations: The Federal rules restrict any use of the information to criminally investigate or prosecute any alcohol or drug abuse patient.[facility]In the event this information is protected by the Federal Confidentiality of Alcohol and Drug Abuse Patient Records regulations: The Federal rules restrict any use of the information to criminally investigate or prosecute any alcohol or drug abuse patient.[facility]In the event this information is protected by the Federal Confidentiality of Alcohol and Drug Abuse Patient Records regulations: The Federal rules restrict any use of the information to criminally investigate or prosecute any alcohol or drug abuse patient.[facility]In the event this information is protected by the Federal Confidentiality of Alcohol and Drug Abuse Patient Records regulations: The Federal rules restrict any use of the information to criminally investigate or prosecute any alcohol or drug abuse patient.[facility] HospitalIn the event this information is protected by the Federal Confidentiality of Alcohol and Drug Abuse Patient Records regulations: The Federal rules restrict any use of the information to criminally investigate or prosecute any alcohol or drug abuse patient.[facility] HospitalIn the event this information is protected by the Federal Confidentiality of Alcohol and Drug Abuse Patient Records regulations: The Federal rules restrict any use of the information to criminally investigate or prosecute any alcohol or drug abuse patient.[facility] HospitalIn the event this information is protected by the Federal Confidentiality of Alcohol and Drug Abuse Patient Records regulations: The Federal rules restrict any use of the information to criminally investigate or prosecute any alcohol or drug abuse patient.[facility] HospitalIn the event this information is protected by the Federal Confidentiality of Alcohol and Drug Abuse Patient Records regulations: The Federal rules restrict any use of the information to criminally investigate or prosecute any alcohol or drug abuse patient.[facility] HospitalIn the event this information is protected by the Federal Confidentiality of Alcohol and Drug Abuse Patient Records regulations: The Federal rules restrict any use of the information to criminally investigate or prosecute any alcohol or drug abuse patient.[facility] HospitalIn the event this information is protected by the Federal Confidentiality of Alcohol and Drug Abuse Patient Records regulations: The Federal rules restrict any use of the information to criminally investigate or prosecute any alcohol or drug abuse patient.[facility] HospitalIn the event this information is protected by the Federal Confidentiality of Alcohol and Drug Abuse Patient Records regulations: The Federal rules restrict any use of the information to criminally investigate or prosecute any alcohol or drug abuse patient.[facility] HospitalIn the event this information is protected by the Federal Confidentiality of Alcohol and Drug Abuse Patient Records regulations: The Federal rules restrict any use of the information to criminally investigate or prosecute any alcohol or drug abuse patient.[facility] HospitalIn the event this information is protected by the Federal Confidentiality of Alcohol and Drug Abuse Patient Records regulations: The Federal rules restrict any use of the information to criminally investigate or prosecute any alcohol or drug abuse patient.[facility] HospitalIn the event this information is protected by the Federal Confidentiality of Alcohol and Drug Abuse Patient Records regulations: The Federal rules restrict any use of the information to criminally investigate or prosecute any alcohol or drug abuse patient.[facility] HospitalIn the event this information is protected by the Federal Confidentiality of Alcohol and Drug Abuse Patient Records regulations: The Federal rules restrict any use of the information to criminally investigate or prosecute any alcohol or drug abuse patient.[facility] HospitalIn the event this information is protected by the Federal Confidentiality of Alcohol and Drug Abuse Patient Records regulations: The Federal rules restrict any use of the information to criminally investigate or prosecute any alcohol or drug abuse patient.[facility] HospitalIn the event this information is protected by the Federal Confidentiality of Alcohol and Drug Abuse Patient Records regulations: The Federal rules restrict any use of the information to criminally investigate or prosecute any alcohol or drug abuse patient.[facility] HospitalIn the event this information is protected by the Federal Confidentiality of Alcohol and Drug Abuse Patient Records regulations: The Federal rules restrict any use of the information to criminally investigate or prosecute any alcohol or drug abuse patient.[facility] HospitalIn the event this information is protected by the Federal Confidentiality of Alcohol and Drug Abuse Patient Records regulations: The Federal rules restrict any use of the information to criminally investigate or prosecute any alcohol or drug abuse patient.[facility] HospitalIn the event this information is protected by the Federal Confidentiality of Alcohol and Drug Abuse Patient Records regulations: The Federal rules restrict any use of the information to criminally investigate or prosecute any alcohol or drug abuse patient.[facility] HospitalIn the event this information is protected by the Federal Confidentiality of Alcohol and Drug Abuse Patient Records regulations: The Federal rules restrict any use of the information to criminally investigate or prosecute any alcohol or drug abuse patient.[facility] HospitalIn the event this information is protected by the Federal Confidentiality of Alcohol and Drug Abuse Patient Records regulations: The Federal rules restrict any use of the information to criminally investigate or prosecute any alcohol or drug abuse patient.[facility] HospitalIn the event this information is protected by the Federal Confidentiality of Alcohol and Drug Abuse Patient Records regulations: The Federal rules restrict any use of the information to criminally investigate or prosecute any alcohol or drug abuse patient.[facility] HospitalIn the event this information is protected by the Federal Confidentiality of Alcohol and Drug Abuse Patient Records regulations: The Federal rules restrict any use of the information to criminally investigate or prosecute any alcohol or drug abuse patient.[facility] HospitalIn the event this information is protected by the Federal Confidentiality of Alcohol and Drug Abuse Patient Records regulations: The Federal rules restrict any use of the information to criminally investigate or prosecute any alcohol or drug abuse patient.[facility] HospitalIn the event this information is protected by the Federal Confidentiality of Alcohol and Drug Abuse Patient Records regulations: The Federal rules restrict any use of the information to criminally investigate or prosecute any alcohol or drug abuse patient.[facility] HospitalIn the event this information is protected by the Federal Confidentiality of Alcohol and Drug Abuse Patient Records regulations: The Federal rules restrict any use of the information to criminally investigate or prosecute any alcohol or drug abuse patient.[facility] HospitalIn the event this information is protected by the Federal Confidentiality of Alcohol and Drug Abuse Patient Records regulations: The Federal rules restrict any use of the information to criminally investigate or prosecute any alcohol or drug abuse patient.[facility] HospitalIn the event this information is protected by the Federal Confidentiality of Alcohol and Drug Abuse Patient Records regulations: The Federal rules restrict any use of the information to criminally investigate or prosecute any alcohol or drug abuse patient.[facility] HospitalIn the event this information is protected by the Federal Confidentiality of Alcohol and Drug Abuse Patient Records regulations: The Federal rules restrict any use of the information to criminally investigate or prosecute any alcohol or drug abuse patient.[facility] HospitalIn the event this information is protected by the Federal Confidentiality of Alcohol and Drug Abuse Patient Records regulations: The Federal rules restrict any use of the information to criminally investigate or prosecute any alcohol or drug abuse patient.[facility] Reason for Visit (unrecogniz ed section [...] BREAST UNI REAL TIME WITH IMAGE LIMITED [place] Brenda, GATE CLERK.TREE DOCTOR [address] [place] [address] Br Imaging [address] [place] [address] Referral ID Status Reason Start Date Expiration Date V isits Requested Visits Authorized [id number] Closed Auto-Generate d Referral 09/05/2021 10/05/2022 1 1 Reason Comments Radiology Mammogram Specialty Diagnoses / Procedures Referred By Contac t Referred To Contact BR IMAGING Diagnoses Abnormal mammogram Procedures SABINO DIAGNOSTIC LT DIAGNOSTIC MAMMOGRAPHY COMPUTER-AIDED DETCJ [facility] [place] Brenda Shankar, GATE CLERK.TREE DOCTOR [address] [place] [address] Br Imaging [address] [place] [address] Referral ID Status Reason Start Date Expiration Date V isits Requested Visits Authorized [id number] Closed Auto-Generate d Referral 09/05/2021 10/05/2022 1 [...] NEW HIGH MDM 60-74 MINUTES Twyla Cuevas GATE CLERK.TREE DOCTOR [address] [place] [address] Referral ID Status Reason Start Date Expiration Date Visits Requested Visits Authorized [id number] Pending Review PCP Requested Referral 10/11/2022 10/11/2023 1 1 Reason Onset Date Comments Refill Request 12/20/[address] Specialty Diagnoses / Procedures Referred By Contac t Referred To Contact CT IMAGING Diagnoses Lung nodules Procedures CT CHEST WO IVCON DIAGNOSTIC COMPUTED TOMOGRAPHY THORAX W/O Florence Duncan MD [address] [place] [address] [place] [address] Referral ID Status Reason Start Date Expiration Date V isits Requested Visits Authorized [id number] Closed Auto-Generate d Referral 11/29/2021 12/29/2022 1 [...] W/O Geno Lopez MD [address] [place] [address] [place] [address] Referral ID Status Reason Start Date Expiration Date V isits Requested Visits Authorized [id number] Closed Auto-Generate d Referral 08/30/2023 02/19/2024 1 1 Reason Onset Date Comments Refill Request 08/30/2023 Reason Onset Date Comments Community Monitoring Outreach 08/31/2023 F/ U engagement CDM Home Monitoring Reason Comments Histoplasmosis Reason Comments Hospital F/U [facility] ED/Hospital disc harge 08/18/23 Reason Comments Med Change Request Reason Onset Date Comments Refill Request 09/27/2023 Reason Comments Follow Up Reason Onset Date Comments Community Monitoring Outreach 10/17/2023 F/ U engagement CDM Home Monitoring Reason Comments Follow Up Room 9I no longer n eed to take blood pressure medication. 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)Recent BLE Edema and Discomfort- compression/diuretics effective[facility] [place] [facility] for BleedingDoesn't like taking diuretics when [...] Consult Specialty Diagnoses / Procedures Referred By Contac t Referred To Contact Cardiology Diagnoses Aortic valve stenosis, etiology of cardiac valve disease unspecified Mitral valve stenosis, unspecified etiology Pericardial effusion Procedures CONSULT TO CARDIOLOGY OFFICE/OUTPATIENT NEW HIGH MDM 60 MINUTES Jimbo Swanson, GATE CLERK.RPG PROGRAMMER [address] [place] [address] Referral ID Status Reason Start Date Expiration Date V isits Requested Visits Authorized [id number] Closed PCP Requested Referral 10/11/2023 10/10/2024 1 [...] CT ANGIO ABD&PLVIS CNTRST MTRL W/WO CNTRST IMFAN NewmanMonica Olivares, GATE CLERK.TREE DOCTOR [id number] Imaging [place] [address] Referral ID Status Reason Start Date Expiration Date V isits Requested Visits Authorized [id number] Closed Auto-Generate d Referral 01/08/2024 02/06/2025 1 1 Reason Comments Patient Education Reason Comments Spirometry Specialty Diagnoses / Procedures [facility] Diagnoses Nonrheumatic aortic valve stenosis Procedures SPIROMETRY BASELINE ONLY SPMTRY W/VC EXPIRATORY [place] W/WO MXML VOL VNTJ Willet-Monica Olivares, GATE CLERK.TREE DOCTOR [address] [place] [address] [place] [address] Referral ID Status Reason Start Date Expiration Date V isits Requested Visits Authorized [id number] Closed Auto-Generate d Referral 01/08/2024 02/06/2025 1 1 Specialty Diagnoses / Procedures Referred By [facility] Referred To Contact [facility] Diagnoses Nonrheumatic aortic valve stenosis Procedures LUNG DIFFUSION CAPACITY (DLCO) DIFFUSING CAPACITY Willet-Monica Olivares, GATE CLERK.TREE DOCTOR [address] [place] [address] [place] [address] Referral ID Status Reason Start Date Expiration Date V isits Requested Visits Authorized [id number] Closed Auto-Generate d Referral 01/08/2024 02/06/2025 1 1 Reason Comments Aortic Stenosis Reason Comments Radiology NM Specialty Diagnoses / Procedures Ref[facility] Referred To Contact MOLECULAR & FUNCTIONAL IMAGING Diagnoses Nonrheumatic aortic valve stenosis Procedures NM SPECT/CT CARDIAC AMYLOID RP LOCLZJ MARY SPECT W/CT 1 AREA 1 DAY IMAGING Monica Aguila APRN.TREE DOCTOR [address] [place] [address] Molecular & Functional Imaging [address] [place] [address] Referral ID Status Reason Start Date Expiration Date V isits Requested Visits Authorized [id number] Closed Auto-Generate d Referral 01/08/2024 02/06/2025 1 1 Reason Onset Date Comments Population Health Navigation Outreach 03/26/2024 [employer] High Risk - Attempt 2 Reason Onset Date Comments Population Health Navigation Outreach 03/31/2024 [employer] High Risk - Attempt 3 Reason Comments TAVR Meeting Reason Comments Insurance Authorization Reason Comments Referral Information [facility] Francis Reason Comments Appointment TAVR [...] Reason Onset Date Comments Refill Request 08/16/2024 Reason Comments home health calling Care Teams (unrecognized sec tion and content) Hims Manager Relationship Specialty Start Date End Date Claudine Durán MD [address] [place], [place] [id number] PCP - General Internal Medicine 03/02/16 Will Hurley [address] [facility] [place], [place] [address] Referring Rheumatology 04/09/18 Gold Colón lift operatorCorncob Pipe Supervisor Internal Medicine 07/22/20 Hims Manager Relationship Specialty Start Date End Date Claudine Durán MD [address] [facility], [place] [address] PCP - General Internal Medicine 03/02/16 Will Hurley [address] [facility] [address] Referring Rheumatology 04/09/18 Gold Colón, lift operatorCorncob Pipe Supervisor Internal Medicine 07/22/20 Hims Manager Relationship Specialty Start Date End Date Claudine Durán MD [address] [facility], [place] [address] PCP - General Internal Medicine 03/02/16 Will Hurley [address] [facility] [address] Referring Rheumatology 04/09/18 Gold Colón, lift operatorCorncob Pipe Supervisor Internal Medicine 07/22/20 Hims Manager Relationship Specialty Start Date End Date Claudine Durán MD [address] [facility] [address] PCP - General Internal Medicine 03/02/16 Will Hurley [address] [facility] [address] Referring Rheumatology 04/09/18 Gold Colón, lift operatorCorncob Pipe Supervisor Internal Medicine 07/22/20 Hims Manager Relationship Specialty Start Date End Date Claudine Durán MD [address] [facility], [place] [address] PCP - General Internal Medicine 03/02/16 Will Hurley [address] [facility] [address] Referring Rheumatology 04/09/18 Gold Colón, lift operatorCorncob Pipe Supervisor Internal Medicine 07/22/20 Hims Manager Relationship Specialty Start Date End Date Claudine Durán MD [address] [place], [place] [address] PCP - General Internal Medicine 03/02/16 Will Hurley [address] [facility] [address] Referring Rheumatology 04/09/18 Gold Colón, lift operatorCorncob Pipe Supervisor Internal Medicine 07/22/20 Hims Manager Relationship Specialty Start Date End Date Claudine Durán MD [address] [place], [place] [address] PCP - General Internal Medicine 03/02/16 Will Hurley [address] [place] [address] Referring Rheumatology 04/09/18 Gold Colón, lift operatorCorncob Pipe Supervisor Internal Medicine 07/22/20 Hims Manager Relationship Specialty Start Date End Date Claudine Durán MD [address] [place] [address] PCP - General Internal Medicine 03/02/16 Will Hurley [address] [facility] [address] Referring Rheumatology 04/09/18 Gold Colón, lift operatorCorncob Pipe Supervisor Internal Medicine 07/22/20 Hims Manager Relationship Specialty Start Date End Date Claudine Durán MD [address] [place], [place] [address] PCP - General Internal Medicine 03/02/16 Will Hurley [address] [facility] [place] [address] Referring Rheumatology 04/09/18 Gold Colón, lift operatorCorncob Pipe Supervisor Internal Medicine 07/22/20 Hims Manager Relationship Specialty Start Date End Date Claudine Durán MD [address] [place], [place] [address] PCP - General Internal Medicine 03/02/16 Will Hurley [address] [facility] [address] Referring Rheumatology 04/09/18 Gold Colón, lift operatorCorncob Pipe Supervisor Internal Medicine 07/22/20 Hims Manager Relationship Specialty Start Date End Date Claudine Durán MD [address] [place], [place] [address] PCP - General Internal Medicine 03/02/16 [place] [place] [address] Referring Rheumatology 04/09/18 Gold Colón, lift operatorCorncob Pipe Supervisor Internal Medicine 07/22/20 Hims Manager Relationship Specialty Start Date End Date Claudine Durán MD [address] [place] [address] PCP - General Internal Medicine 03/02/16 Will Hurley[address] [facility] [address] Referring Rheumatology 04/09/18 Gold Colón, lift operatorCorncob Pipe Supervisor Internal Medicine 07/22/20 Hims Manager Relationship Specialty Start Date End Date Claudine Durán MD [address] [place], [place] [address] PCP - General Internal Medicine 03/02/16 Will Hurley[address] [facility] [place] [address] Referring Rheumatology 04/09/18 Gold Colón, lift operatorCorncob Pipe Supervisor Internal Medicine 07/22/20 Hims Manager Relationship Specialty Start Date End Date Claudine Durán MD [address] [place] [address] PCP - General Internal Medicine 03/02/16 Will Hurley[address] [facility] [address] Referring Rheumatology 04/09/18 Gold Colón, lift operatorCorncob Pipe Supervisor Internal Medicine 07/22/20 Hims Manager Relationship Specialty Start Date End Date Claudine Durán MD [address] [place] [address] PCP - General Internal Medicine 03/02/16 Will Hurley [address] [facility] [address] Referring Rheumatology 04/09/18 Gold Colón, lift operatorCorncob Pipe Supervisor Internal Medicine 07/22/20 Hims Manager Relationship Specialty Start Date End Date Claudine Durán MD [address] [place] [address] PCP - General Internal Medicine 03/02/16 Will Hurley[address] [facility] [place] [address] Referring Rheumatology 04/09/18 Gold Colón, lift operatorCorncob Pipe Supervisor Internal Medicine 07/22/20 Hims Manager Relationship Specialty Start Date End Date Claudine Durán MD [address] [place] [address] PCP - General Internal Medicine 03/02/16 Will Hurley [address] [facility] [place] [address] Referring Rheumatology 04/09/18 Gold Colón, lift operatorCorncob Pipe Supervisor Internal Medicine 07/22/20 Hims Manager Relationship Specialty Start Date End Date Claudine Durán MD [address] [facility] [address] PCP - General Internal Medicine 03/02/16 Will Hurley [facility] [address] [facility] [place] [address] Referring Rheumatology 04/09/18 Gold Colón, lift operatorCorncob Pipe Supervisor Internal Medicine 07/22/20 Hims Manager Relationship Specialty Start Date End Date Claudine Durán MD [address] [facility] [place] [address] PCP - General Internal Medicine 03/02/16 Will Hurley [facility] [address] [facility] [place] [address] Referring Rheumatology 04/09/18 Lulú Ramos, PAULA [address] [place], [place] [address] Corncob Pipe Supervisor Family Medicine 07/22/20 Hims Manager Relationship Specialty Start Date End Date Claudine Durán MD [address] [facility] [address] PCP - General Internal Medicine 03/02/16 Will Hurley [facility] [address] [facility] [place] [address] Referring Rheumatology 04/09/18 Gold Colón, lift operatorCorncob Pipe Supervisor Internal Medicine 07/22/20 12/20/21 Lulú Ramos, RN [address] [place] [address] Corncob Pipe Supervisor Family Medicine 07/22/20 Hims Manager Relationship Specialty Start Date End Date Claudine Durán MD [address] [facility] [address] PCP - General Internal Medicine 03/02/16 Will Hurley [facility] [address] [facility] [place] [address] Referring Rheumatology 04/09/18 Lulú Ramos, RN [address] [place] [address] Corncob Pipe Supervisor Family Medicine 07/22/20 Hims Manager Relationship Specialty Start Date End Date Claudine Durán MD [address] [facility] [address] PCP - General Internal Medicine 03/02/16 Will Hurley [facility] [address] [facility] [address] Referring Rheumatology 04/09/18 Lulú Ramos, PAULA [address] [place] [address] Corncob Pipe Supervisor Family Medicine 07/22/20 Hims Manager Relationship Specialty Start Date End Date Claudine Durán MD [address] [facility] [address] PCP - General Internal Medicine 03/02/16 Will Hurley [facility] [address] [facility] [address] Referring Rheumatology 04/09/18 Lulú Ramos, PAULA [address] [place] [address] Corncob Pipe Supervisor Family Medicine 07/22/20 Hims Manager Relationship Specialty Start Date End Date Claudine Durán MD [address] [facility] [address] PCP - General Internal Medicine 03/02/16 Will Hurley [address] [facility] [place] [address] Referring Rheumatology 04/09/18 Lulú Ramos, PAULA [address] [place], [place] [address] Corncob Pipe Supervisor Family Medicine 07/22/20 Hims Manager Relationship Specialty Start Date End Date Claudine Durán MD [address] [place] [address] PCP - General Internal Medicine 03/02/16 Will Hurley [facility] [address] [facility] [address] Referring Rheumatology 04/09/18 Lulú Ramos RN [address] [place] [address] Corncob Pipe Supervisor Family Medicine 12/20/21 Hims Manager Relationship Specialty Start Date End Date Claudine Durán MD [address] [facility] [address] PCP - General Internal Medicine 03/02/16 Will Hurley [address] [place] [address], [place] [address] Referring Rheumatology 04/09/18 Lulú Ramos, PAULA [address] [place] [address] Corncob Pipe Supervisor Family Medicine 12/20/21 Hims Manager Relationship Specialty Start Date End Date Claudine Durán MD [address] [facility] [place] [address] PCP - General Internal Medicine 03/02/16 Will Hurley [facility] N [facility] [place] [address] Referring Rheumatology 04/09/18 Lulú Ramos, RN [address] [place] [address] Corncob Pipe Supervisor Family Medicine 12/20/21 Hims Manager Relationship Specialty Start Date End Date Claudine Durán MD [address] [facility] [address] PCP - General Internal Medicine 03/02/16 Will Hurley [address] [facility] [address] Referring Rheumatology 04/09/18 Lulú Ramos, RN [address] [place] [address] Corncob Pipe Supervisor Family Medicine 12/20/21 Hims Manager Relationship Specialty Start Date End Date Claudine Durán MD [address] [facility] [address] PCP - General Internal Medicine 03/02/16 Will Hurley [address] [facility] [address] Referring Rheumatology 04/09/18 Lulú Ramos, PAULA [address] [place] [address] Corncob Pipe Supervisor Family [facility] 12/20/21 Hims Manager Relationship Specialty Start Date End Date Claudine Durán MD [address] [facility] [address] PCP - General Internal Medicine 03/02/16 Will Hurley [address] [facility] [place] [address] Referring Rheumatology 04/09/18 Lulú Ramos, PAULA [address] [place] [address] Corncob Pipe Supervisor Family Medicine 12/20/21 Hims Manager Relationship Specialty Start Date End Date Claudine Durán MD [address] [facility] [address] PCP - General Internal Medicine 03/02/16 Will Hurley [address] [facility] [address] Referring Rheumatology 04/09/18 Lulú Ramos, RN [address] [place] [address] Corncob Pipe Supervisor Family Medicine 12/20/21 Hims Manager Relationship Specialty Start Date End Date Claudine Durán MD [address] [place] [address] PCP - General Internal Medicine 03/02/16 Will Hurley [address] [place] [address] Referring Rheumatology 04/09/18 Lulú Ramos, PAULA [address] [place] [address] Corncob Pipe Supervisor Family Medicine 12/20/21 Hims Manager Relationship Specialty Start Date End Date Claudine Durán MD [address] [place] [address] PCP - General Internal Medicine 03/02/16 Will Hurley [address] [place] [address] Referring Rheumatology 04/09/18 Lulú Ramos, PAULA [address] [place] [address] Corncob Pipe Supervisor Family Medicine 12/20/21 Hims Manager Relationship Specialty Start Date End Date Claudine Durán MD [address] [place] [address] PCP - General Internal Medicine 03/02/16 Will Hurley [facility] [address] Referring Rheumatology 04/09/18 Lulú Ramos, RN [address] [place] [address] Corncob Pipe Supervisor Family Medicine 12/20/21 Hims Manager Relationship Specialty Start Date End Date Claudine Durán MD [address] [facility] [address] PCP - General Internal Medicine 03/02/16 Will Hurley [address] [facility] [address] Referring Rheumatology 04/09/18 Ilda Miller RN [address] [place] [address] Corncob Pipe Supervisor 07/27/22 Hims Manager Relationship Specialty Start Date End Date Claudine Durán MD [address] [facility] [address] PCP - General Internal Medicine 03/02/16 Will Hurley [address] [facility] [address] Referring Rheumatology 04/09/18 Ilda Miller RN [address] [place] [address] Corncob Pipe Supervisor 07/27/22 Hims Manager Relationship Specialty Start Date End Date Claudine Durán MD [address] [facility] [place] [address] PCP - General Internal Medicine 03/02/16 Will Hurley [address] [facility] [place] [address] Referring Rheumatology 04/09/18 Ilda Miller RN [address] [place], [place] [address] Corncob Pipe Supervisor 07/27/22 Hims Manager Relationship Specialty Start Date End Date Claudine Duárn MD [address] [place] [address] PCP - General Internal Medicine 03/02/16 Will Hurley [address] [facility] [place] [address] Referring Rheumatology 04/09/18 Ilda Miller RN [address] [place] [address] Corncob Pipe Supervisor 07/27/22 Hims Manager Relationship Specialty Start Date End Date Claudine Durán MD [address] [place] [address] PCP - General Internal Medicine 03/02/16 Will Hurley [address] [facility] [place] [address] Referring Rheumatology 04/09/18 Ilda Miller RN [address] [place] [address] Corncob Pipe Supervisor 07/27/22 Hims Manager Relationship Specialty Start Date End Date Claudine Durán MD [address] [place] [address] PCP - General Internal Medicine 03/02/16 Will Hurley [address] [place] [address] Referring Rheumatology 04/09/18 Ilda Miller RN [address] [place] [address] Corncob Pipe Supervisor 07/27/22 Hims Manager Relationship Specialty Start Date End Date Claudine Durán MD [address] [facility] [address] PCP - General Internal Medicine 03/02/16 Will Hurley [address] [facility] [place] [address] Referring Rheumatology 04/09/18 Ilda Miller, PAULA [address] [place] [address] Corncob Pipe Supervisor 07/27/22 Hims Manager Relationship Specialty Start Date End Date Claudine Durán MD [address] [place] [address] PCP - General Internal Medicine 03/02/16 Will Hurley [address] [facility] [place] [address] Referring Rheumatology 04/09/18 Ilda Miller, PAULA [address] [place] [address] Corncob Pipe Supervisor 07/27/22 Hims Manager Relationship Specialty Start Date End Date Claudine Durán MD [address] [place] [address] PCP - General Internal Medicine 03/02/16 Will Hurley [address] [facility] [address] Referring Rheumatology 04/09/18 Ilda Miller RN [address] [place] [address] Corncob Pipe Supervisor 07/27/22 Hims Manager Relationship Specialty Start Date End Date Claudine Durán MD [address] [facility] [address] PCP - General Internal Medicine 03/02/16 Will Hurley [address] [facility] [place] [address] Referring Rheumatology 04/09/18 Ilda Miller, PAULA [address] [place] [address] Corncob Pipe Supervisor 07/27/22 Hims Manager Relationship Specialty Start Date End Date Claudine Durán MD [address] [place] [address] PCP - General Internal Medicine 03/02/16 Will Hurley [address] [facility] [place] [address] Referring Rheumatology 04/09/18 Ilda Miller RN [address] [place] [address] Corncob Pipe Supervisor 07/27/22 Hims Manager Relationship Specialty Start Date End Date Claudine Durán MD [address] [place] [address] PCP - General Internal Medicine 03/02/16 Will Hurley [address] [facility] [place] [address] Referring Rheumatology 04/09/18 Ilda Miller RN [address] [place] [address] Corncob Pipe Supervisor 07/27/22 Hims Manager Relationship Specialty Start Date End Date Claudine Durán MD [address] [place] [address] PCP - General Internal Medicine 03/02/16 Will Hurley [address] [facility] [address] Referring Rheumatology 04/09/18 Lulú Ramos RN [address] [place], [place] 2211531 Corncob Pipe Supervisor Family Medicine 12/20/2107/26 Hims Manager Relationship Specialty Start Date End Date Claudine Durán MD [address] [place], [place] [address]211 PCP - General Internal Medicine 03/02/16 Will Hurley [address] [facility], [place] [address]503 Referring Rheumatology 04/09/18 Ilda Miller RN [address] [place] [address] Corncob Pipe Supervisor 07/27/22 Team Status: Active Member Role Status Dates Dr. Claudine Durán MD Family Provider Active Dr. Claudine Durán MD Primary Care Provider Active Team Status: Inactive Member Role Status Dates Dr. Claudine Durán MD Primary Care Provider Active Dr. Bob Elias DO Emergency Provider Active Hims Manager Relationship Specialty Start Date End Date Claudine Durán MD [address] [place], [place] 685091 PCP - General Internal Medicine 03/02/16 Will Hurley [address] [facility], [place] [address]563 Referring Rheumatology 04/09/18 Ilda Miller RN [address] [place] [address] Corncob Pipe Supervisor 07/27/22 Team Status: Inactive Member Role Status Dates Dr. Claudine Durán MD Primary Care Provider Active Dr. Bob Elias DO Attending Provider, Emergency [facility] Active Team Status: Active Member Role Status Dates Dr. Claudine Durán MD Primary Care Provider Active Dr. Martín Cornejo DO Emergency Provider Active Dr. Laine Veras MD Admit Provider, Attending Provid er Active Hims Manager Relationship Specialty Start Date End Date Claudine Durán MD [address] [place] [address] PCP - General Internal Medicine 03/02/16 Will Hurley [address] [place] [address] Referring Rheumatology 04/09/18 Ilda Miller, PAULA [address] [place] [address] Corncob Pipe Supervisor 07/27/22 Lynne Maynard, lift operator Jail Officer 03/26/23 Team Status: Active Member Role [...] Dr. Alisa Mathew MD Attending Provider Active Hims Manager Relationship Specialty Start Date End Date Claudine Durán MD [address] [place], [place] 578211 PCP - General Internal Medicine 03/02/16 Will Hurley [address] [facility] [address] Referring Rheumatology 04/09/18 Ilda Miller RN [address] [place], [place] 2253031 Corncob Pipe Supervisor 07/27/22 Lynne Maynard, lift operator Jail Officer 03/26/23 Hims Manager Relationship Specialty Start Date End Date Claudine Durán MD [address] [place] [address] PCP - General Internal Medicine 03/02/16 Will Hurley [address] [facility] [place] [address] Referring Rheumatology 04/09/18 Ilda Miller RN [address] [place], [place] 525[address]31 Corncob Pipe Supervisor 07/27/22 Lynne Maynard, lift operator Jail Officer 03/26/23 Team Status: Active Member Role [...] Provider A ctive Dr. Jasmyn Chan , Other Provider Active Dr. Alisa Mathew MD [...] Cornejo , DO Emergency Provider Active Dr. aLine Veras MD Admit Provider, Other Provider A [...] MD Other Provider Active Dr. Frederick Dick DO Other Provider Active Team Status: Active [...] MD Other Provider Active Dr. Frederick Dick DO Other Provider Active Dr. Mathew Orellana [...] , DO Other Provider Active Rosalina Herrera WHISKEY FILTERER, WHISKEY FILTERER-C Other Provider Active Team Status: Active Member [...] Frederick Dick , Other Provider Active Dr. Geno Rush MD Other Provider Active Dr. Adarsh Prakash MD Other Provider Active Dr. Alcides Abel MD Attending Provider, Other Pr ovider Active Dr. London Sandra MD Other Provider Active Dr. Chris Royal MD Other Provider Active Dr. Leobardo Calloway MD Other Provider Active Dr. Jorgito Agarwal , Other Provider Active Rosalina Herrera WHISKEY FILTERER, WHISKEY FILTERER-C Other Provider Active Team Status: Inactive Member [...] , DO Other Provider Active Rosalina Herrera WHISKEY FILTERER, WHISKEY FILTERER-C Other Provider Active Team Status: Active Member [...] , DO Other Provider Active Rosalina Herrera WHISKEY FILTERER, WHISKEY FILTERER-C Other Provider Active Team Status: Active Member [...] MD Admit Provider, Attending Provid er Active Hims Manager Relationship Specialty Start Date End Date Claudine Durán MD [address] [place] [address] PCP - General Internal Medicine 03/02/16 Will Hurley [address] [place] [address] Referring Rheumatology 04/09/18 Ilda Miller, PAULA [address] [place] [address] Corncob Pipe Supervisor 07/27/22 Team Status: Active Member Role Status Dates Dr. Claudine Durán MD Primary Care Provider Active Zaynab NOLEN MD Attending Provider Active Team Status: Inactive Member Role Status Dates Dr. Claudine Durán MD Primary Care Provider Active Zaynab NOLEN MD Attending Provider Active Hims Manager Relationship Specialty Start Date End Date Claudine Durán MD [address] [place], [place] 225971 PCP - General Internal Medicine 03/02/16 Will Hurley [address] [facility], [place] [address] Referring Rheumatology 04/09/18 Ilda Miller RN [address] [place] [address] Corncob Pipe Supervisor 07/27/22 Team Status: Inactive Member Role Status Dates Dr. Claudine Durán MD Primary Care Provider Active Fadia Pizarro WHISKEY FILTERER, WHISKEY FILTERER-C Attending Provider Active Team Status: Inactive Member Role Status Dates Dr. Caludine Durán MD Primary Care Provider Active Dr. Zaynab Pina MD Attending Provider Active Hims Manager Relationship Specialty Start Date End Date Claudine Durán MD [address] [place], [place] 758401 PCP - General Internal Medicine 03/02/16 Will Hurley [address] [facility] [address] Referring Rheumatology 04/09/18 Ilda Miller, PAULA [address] [place], [place] 9163931 Corncob Pipe Supervisor 07/27/22 Hims Manager Relationship Specialty Start Date End Date Claudine Durán MD [address] [place], [place] 17[address] PCP - General Internal Medicine 03/02/16 Will Hurley [address] [facility] [place] [address] Referring Rheumatology 04/09/18 Ilda Miller, PAULA [address] [place] [address] Corncob Pipe Supervisor 07/27/22 Hims Manager Relationship Specialty Start Date End Date Claudine Durán MD [address] [place] [address] PCP - General Internal Medicine 03/02/16 Will Hurley [address] [facility] [address] Referring Rheumatology 04/09/18 Ilda Miller RN [address] [place] [address] Corncob Pipe Supervisor 07/27/22 Hims Manager Relationship Specialty Start Date End Date Claudine Durán MD [address] [place] [address] PCP - General Internal Medicine 03/02/16 Will Hurley [address] [facility] [place] [address] Referring Rheumatology 04/09/18 Ilda Miller RN [address] [place] [address] Corncob Pipe Supervisor 07/27/22 Hims Manager Relationship Specialty Start Date End Date Claudine Durán MD [address] [place], [place] 429141 PCP - General Internal Medicine 03/02/16 Will Hurley [address] [facility] [place] [address] Referring Rheumatology 04/09/18 Ilda Miller, RN [address] [place] [address] Corncob Pipe Supervisor 07/27/22 Hims Manager Relationship Specialty Start Date End Date Cluadine Durán MD [address] [facility] [address] PCP - General Internal Medicine 03/02/16 Will Hurley [address] [facility] [place] [address] Referring Rheumatology 04/09/18 Ilda Miller, PAULA [address] [place] [address] Corncob Pipe Supervisor 07/27/22 Hims Manager Relationship Specialty Start Date End Date Claudine Durán MD [address] [facility] [address] PCP - General Internal Medicine 03/02/16 Will Hurley [address] [facility] [place] [address] Referring Rheumatology 04/09/18 Ilda Miller, PAULA [address] [place] [address] Corncob Pipe Supervisor 07/27/22 Hims Manager Relationship Specialty Start Date End Date Claudine Durán MD [address] [facility] [address] PCP - General Internal Medicine 03/02/16 Will Hurley [address] [facility] [place], [place] [address] Referring Rheumatology 04/09/18 Ilda Miller, RN [address] [place] [address] Corncob Pipe Supervisor 07/27/22 Hims Manager Relationship Specialty Start Date End Date Claudine Durán MD [address] [facility] [address] PCP - General Internal Medicine 03/02/16 Will Hurley [address] [facility] [place] [address] Referring Rheumatology 04/09/18 Ilda Miller RN [address] [place] [address] Corncob Pipe Supervisor 07/27/22 Hims Manager Relationship Specialty Start Date End Date Claudine Durán MD [address] [place] [address] PCP - General Internal Medicine 03/02/16 Will Hurley [address] [facility] [address] Referring Rheumatology 04/09/18 Ilda Miller RN [address] [place] [address] Corncob Pipe Supervisor 07/27/22 Hims Manager Relationship Specialty Start Date End Date Claudine Durán MD [address] [facility] [address] PCP - General Internal Medicine 03/02/16 Will Hurley [address] [facility] [address] Referring Rheumatology 04/09/18 Ilda Miller, RN [address] [place] [address] Corncob Pipe Supervisor 07/27/22 Hims Manager Relationship Specialty Start Date End Date Claudine Durán MD [address] [place] [address] PCP - General Internal Medicine 03/02/16 Will Hurley [address] [facility] [address] Referring Rheumatology 04/09/18 Ilda Miller RN [address] [place] [address] Corncob Pipe Supervisor 07/27/22 Hims Manager Relationship Specialty Start Date End Date Claudine Durán MD [address] [place] [address] PCP - General Internal Medicine 03/02/16 Will Hurley [address] [facility] [place] [address] Referring Rheumatology 04/09/18 Ilda Miller, PAULA [address] [place] [address] Corncob Pipe Supervisor 07/27/22 Hims Manager Relationship Specialty Start Date End Date Claudine Durán MD [address] [place] [address] PCP - General Internal Medicine 03/02/16 Will Hurley [address] [facility] [place] [address] Referring Rheumatology 04/09/18 Ilda Miller, RN [address] [place] [address] Corncob Pipe Supervisor 07/27/22 Hims Manager Relationship Specialty Start Date End Date Claudine Durán MD [address] [facility] [address] PCP - General Internal Medicine 03/02/16 Will Hurley [address] [facility] [place] [address] Referring Rheumatology 04/09/18 Ilda Miller RN [address] [place] [address] Corncob Pipe Supervisor 07/27/22 Hims Manager Relationship Specialty Start Date End Date Claudine Durán MD [address] [facility] [address] PCP - General Internal Medicine 03/02/16 Will Hurley [address] [facility] [place] [address] Referring Rheumatology 04/09/18 Ilda Miller RN [address] [place] [address] Corncob Pipe Supervisor 07/27/22 Hims Manager Relationship Specialty Start Date End Date Claudine Durán MD [address] [facility] [address] PCP - General Internal Medicine 03/02/16 Will Hurley [address] [facility] [place] [address] Referring Rheumatology 04/09/18 Ilda Miller, PAULA [address] [place] [address] Corncob Pipe Supervisor 07/27/22 Hims Manager Relationship Specialty Start Date End Date Claudine Durán MD [address] [facility] [address] PCP - General Internal Medicine 03/02/16 Will Hurley [address] [facility] [place] [address] Referring Rheumatology 04/09/18 Ilda Miller RN [address] [place] [address] Corncob Pipe Supervisor 07/27/22 Hims Manager Relationship Specialty Start Date End Date Claudine Durán MD [address] [place] [address] PCP - General Internal Medicine 03/02/16 Will Hurley [address] [facility] [address] Referring Rheumatology 04/09/18 Ilda Miller RN [address] [place] [address] Corncob Pipe Supervisor 07/27/22 Hims Manager Relationship Specialty Start Date End Date Claudine Durán MD [address] [facility] [address] PCP - General Internal Medicine 03/02/16 Will Hurley [address] [facility] [address] Referring Rheumatology 04/09/18 Ilda Miller RN [address] [place] [address] Corncob Pipe Supervisor 07/27/22 Hims Manager Relationship Specialty Start Date End Date Claudine Durán MD [address] [place] [address] PCP - General Internal Medicine 03/02/16 Will Hurley [address] [facility] [place] [address] Referring Rheumatology 04/09/18 Ilda Miller RN [address] [place] [address] Corncob Pipe Supervisor 07/27/22 Hims Manager Relationship Specialty Start Date End Date Claudine Durán MD [address] [place] [address] PCP - General Internal Medicine 03/02/16 Will Hurley [address] [facility] [place] [place] [address] Referring Rheumatology 04/09/18 Ilda Miller RN [address] [place] [address] Corncob Pipe Supervisor 07/27/22 Hims Manager Relationship Specialty Start Date End Date lCaudine Durán MD [address] [place] [address] PCP - General Internal Medicine 03/02/16 Will Hurley [address] [facility] [address] Referring Rheumatology 04/09/18 Ilda Miller RN [address] [place] [address] Corncob Pipe Supervisor 07/27/22 Hims Manager Relationship Specialty Start Date End Date Claudine Durán MD [address] [facility], [place] [address] PCP - General Internal Medicine 03/02/16 Will Hurley [address] [facility] [place], [place] [address] Referring Rheumatology 04/09/18 Ilda Miller RN [address] [place] [address] Corncob Pipe Supervisor 07/27/22 Hims Manager Relationship Specialty Start Date End Date Claudine Durán MD [address] [place] [address] PCP - General Internal Medicine 03/02/16 Will Hurley [address] [facility] [place] [address] Referring Rheumatology 04/09/18 Ilda Miller, PAULA [address] [place] [address] Corncob Pipe Supervisor 07/27/22 Hims Manager Relationship Specialty Start Date End Date Claudine Durán MD [address] [facility] [address] PCP - General Internal Medicine 03/02/16 Will Hurley [address] [facility] [place], [place] [address] Referring Rheumatology 04/09/18 Lulú Ramos RN [address] [facility] [place] [address] Corncob Pipe Supervisor Family Medicine 12/20/21 Hims Manager Relationship Specialty Start Date End Date Claudine Durán MD [address] [facility], [place] [address] PCP - General Internal Medicine 03/02/16 Will Hurley [address] [facility] [place], [place] [address] Referring Rheumatology 04/09/18 Ilda Miller RN [address] [place] [address] Corncob Pipe Supervisor 07/27/22 Hims Manager Relationship Specialty Start Date End Date Claudine Durán MD [address] [place], [place] 464161 PCP - General Internal Medicine 03/02/16 Will Hurley [address] [facility] [place], [place] [address] Referring Rheumatology 04/09/18 Ilda Miller RN [address] [place] [address] Corncob Pipe Supervisor 07/27/22 Hims Manager Relationship Specialty Start Date End Date Claudine Durán MD [address] [facility] [address] PCP - General Internal Medicine 03/02/16 Will Hurley [address] [facility] [place] [address] Referring Rheumatology 04/09/18 Ilda Miller RN [address] [place] [address] Corncob Pipe Supervisor 07/27/22 Hims Manager Relationship Specialty Start Date End Date Claudine Durán MD [address] [place] [address] PCP - General Internal Medicine 03/02/16 Will Hurley [address] [facility] [place] [address] Referring Rheumatology 04/09/18 Ilda Miller, PAULA [address] [place] [address] Corncob Pipe Supervisor 07/27/22 Hims Manager Relationship Specialty Start Date End Date Claudine Durán MD [address] [place] [address] PCP - General Internal Medicine 03/02/16 Will Hurley [address] [facility] [address] Referring Rheumatology 04/09/18 Ilda Miller, PAULA [address] [place] [address] Corncob Pipe Supervisor 07/27/22 Hims Manager Relationship Specialty Start Date End Date Claudine Durán MD [address] [place] [address] PCP - General Internal Medicine 03/02/16 Will Hurley [address] [facility] [place] [address] Referring Rheumatology 04/09/18 Ilda Miller, PAULA [address] [place] [address] Corncob Pipe Supervisor 07/27/22 Jimbo Swanson APRN.RPG PROGRAMMER [address] [place] [address] Informatics Spec Internal Medicine 01/28/24 Twyla Cuevas APRN.TREE DOCTOR [address] [place] [address] Informatics Spec Internal Medicine 01/28/24 Hims Manager Relationship Specialty Start Date End Date Claudine Durán MD [address] [place] [address] PCP - General Internal Medicine 03/02/16 Will Hurley [address] [place] [address] Referring Rheumatology 04/09/18 Ilda Miller, PAULA [address] [place] [address] Corncob Pipe Supervisor 07/27/22 Jimbo Swanson, GATE CLERK.RPG PROGRAMMER [address] [place] [address] Informatics Spec Internal Medicine 01/28/24 Twyla Cuevas APRN.TREE DOCTOR [address] [place] [address] Informatics Spec Internal Medicine 01/28/24 Hims Manager Relationship Specialty Start Date End Date Claudine Durán MD [address] [place] [address] PCP - General Internal Medicine 03/02/16 Will Hurley [address] [facility] [address] Referring Rheumatology 04/09/18 Jimbo Swanson, GATE CLERK.RPG PROGRAMMER [address] [facility] [address] Informatics Spec Internal Medicine 01/28/24 Twyla Cuevas APRN.TREE DOCTOR [address] [place] [address] Informatics Spec Internal Medicine 01/28/24 Hims Manager Relationship Specialty Start Date End Date Claudine Durán MD [address] [place] [address] PCP - General Internal Medicine 03/02/16 Will Hurley [address] [facility] [place] [address] Referring Rheumatology 04/09/18 Jimbo Swanson, CONNIE.RPG PROGRAMMER [address] [facility] [place] [address] Informatics Spec Internal Medicine 01/28/24 Twyla Cuevas APRN.TREE DOCTOR [address] [place] [address] [facility] Internal Medicine 01/28/24 Hims Manager Relationship Specialty Start Date End Date Claudine Durán MD [address] [facility] [place] [address] PCP - General Internal Medicine 03/02/16 Will Hurley [address] [facility] [place] [address] Referring Rheumatology 04/09/18 Jimbo Swanson, CONNIE.RPG PROGRAMMER [address] [facility] [place] [address] Informatics Spec Internal Medicine 01/28/24 Twyla Cuevas APRN.TREE DOCTOR [address] [place] [address] Informatics Spec Internal Medicine 01/28/24 Hims Manager Relationship Specialty Start Date End Date Claudine Durán MD [address] [place] [address] PCP - General Internal Medicine 03/02/16 Will Hurley [address] [facility] [address] Referring Rheumatology 04/09/18 Jimbo Swanson APRN.RPG PROGRAMMER [address] [place] [address] Informatics Spec Internal Medicine 01/28/24 Twyla Cuevas APRN.TREE DOCTOR [address] [place] [address] Informatics Spec Internal Medicine 01/28/24 Hims Manager Relationship Specialty Start Date End Date Claudine Durán MD [address] [place] [address] PCP - General Internal Medicine 03/02/16 Will Hurley [address] [facility] [address] Referring Rheumatology 04/09/18 Jimbo Swanson, CONNIE.RPG PROGRAMMER [address] [place] [address] Informatics Spec Internal Medicine 01/28/24 Twyla Cuevas APRN.TREE DOCTOR [address] [place], [place] 903601 [facility] Internal Medicine 01/28/24 Hims Manager Relationship Specialty Start Date End Date Claudine Durán MD [address] [place] [address] PCP - General Internal Medicine 03/02/16 Will [address]ley [address] [place] [address] Referring Rheumatology 04/09/18 Jimbo Swanson APRN.RPG PROGRAMMER [address] [place] [address] [facility] Internal Medicine 01/28/24 Twyla Cuevas APRN.TREE DOCTOR [address] [place] [address] [facility] Internal Medicine 01/28/24 Hims Manager Relationship Specialty Start Date End Date Claudine Durán MD [address] [place] [address] PCP - General Internal Medicine 03/02/16 Will Hurley [address] [facility] [place] [address] Referring Rheumatology 04/09/18 Jimbo Swanson APRN.RPG PROGRAMMER [address] [place] [address] Informatics Spec Internal Medicine 01/28/24 Twyla Cuevas APRN.TREE DOCTOR [address] [place] [address] Informatics Spec Internal Medicine 01/28/24 Hims Manager Relationship Specialty Start Date End Date Claudine Durán MD [address] [place] [address] PCP - General Internal Medicine 03/02/16 Will [address]ley [address] [place] [address] Referring Rheumatology 04/09/18 Jimbo Swanson APRN.RPG PROGRAMMER [address] [place] [address] Informatics Spec Internal Medicine 01/28/24 Twyla Cuevas APRN.TREE DOCTOR [address] [place] [address] Informatics Spec Internal Medicine 01/28/24 Hims Manager Relationship Specialty Start Date End Date Claudine Durán MD [address] [place] [address] PCP - General Internal Medicine 03/02/16 Will Hurley [address] [place] [address] Referring Rheumatology 04/09/18 Jimbo Swanson APRN.RPG PROGRAMMER [address] [place] [address] Informatics Spec Internal Medicine 01/28/24 Twyla Cuevas APRN.TREE DOCTOR [address] [place] [address] Informatics Spec Internal Medicine 01/28/24 Hims Manager Relationship Specialty Start Date End Date Claudine Durán MD [address] [place] [address] PCP - General Internal Medicine 03/02/16 Will [address]ley [address] [place] [address] Referring Rheumatology 04/09/18 Jimbo Swanson, GATE CLERK.RPG PROGRAMMER [address] [place] [address] Informatics Spec Internal Medicine 01/28/24 Twyla Cuevas GATE CLERK.TREE DOCTOR [address] [place] [address] Informatics Spec Internal Medicine 01/28/24 Hims Manager Relationship Specialty Start Date End Date Claudine Durán MD [address] [place] [address] PCP - General Internal Medicine 03/02/16 Will Hurley [address] [place] [address] Referring Rheumatology 04/09/18 Jimbo Swanson, GATE CLERK.RPG PROGRAMMER [address] [place] [address] Informatics Spec Internal Medicine 01/28/24 Twyla Cuevas GATE CLERK.TREE DOCTOR [address] [place] [address] Informatics Spec Internal Medicine 01/28/24 Hims Manager Relationship Specialty Start Date End Date Claudine Durán MD [address] [place] [address] PCP - General Internal Medicine 03/02/16 Will Hurley [address] [facility] [place] [place] [address] Referring Rheumatology 04/09/18 Jimbo Swanson, GATE CLERK.RPG PROGRAMMER [address] [place] [address] Informatics Spec Internal Medicine 01/28/24 Twyla Cuevas GATE CLERK.TREE DOCTOR [address] [place] [address] Informatics Spec Internal Medicine 01/28/24 Hims Manager Relationship Specialty Start Date End Date Claudine Durán MD [address] [place] [address] PCP - General Internal Medicine 03/02/16 Will Hurley [address] [facility] [address] Referring Rheumatology 04/09/18 Jimbo Swanson, GATE CLERK.RPG PROGRAMMER [address] [place] [address] Informatics Spec Internal Medicine 01/28/24 Twyla Cuevas APRN.TREE DOCTOR [address] [place] [address] Informatics Spec Internal Medicine 01/28/24 Hims Manager Relationship Specialty Start Date End Date Claudine Durán MD [address] [place] [address] PCP - General Internal Medicine 03/02/16 Will Hurley [address] [place] [address] Referring Rheumatology 04/09/18 Jimbo Swanson, CONNIE.RPG PROGRAMMER [address] [place] [address] Informatics Spec Internal Medicine 01/28/24 Twyla Cuevas APRN.TREE DOCTOR [address] [place] [address] Informatics Spec Internal Medicine 01/28/24 Hims Manager Relationship Specialty Start Date End Date Claudine Durán MD [address] [place] [address] PCP - General Internal Medicine 03/02/16 Will Hurley [address] [place] [address] Referring Rheumatology 04/09/18 Jimbo Swanson, GATE CLERK.RPG PROGRAMMER [address] [place] [address] Informatics Spec Internal Medicine 01/28/24 Twyla Cuevas APRN.TREE DOCTOR [address] [place] [address] Informatics Spec Internal Medicine 01/28/24 Hims Manager Relationship Specialty Start Date End Date Claudine Durán MD [address] [place] [address] PCP - General Internal Medicine 03/02/16 Will Hurley [address] [place], [place] [address] Referring Rheumatology 04/09/18 Jimbo Swanson, CONNIE.RPG PROGRAMMER [address] [place] [address] Informatics Spec Internal Medicine 01/28/24 Twyla Cuevas APRN.TREE DOCTOR [address] [place] [address] [facility] Internal Medicine 01/28/24 Delfina Francis MD [address] [place], [place] 6286395 Surgeon Cardiac Surg 04/02/24 Juvencio Saeed MD [address] [place], [place] [id number] Primary Staff Physician Cardiology 04/02/24 Hims Manager Relationship Specialty Start Date End Date Claudine Durná MD [facility] [place] [address] PCP - General Internal Medicine 03/02/16 Will Hurley [address] [place] [address] Referring Rheumatology 04/09/18 Jimbo Swanson, CONNIE.RPG PROGRAMMER [address] [place] [address] [facility] Internal Medicine 01/28/24 Twyla Cuevas APRN.TREE DOCTOR [address] [place] [address] Informatics Spec Internal Medicine 01/28/24 Delfina Francis MD [address] [place] [address] Surgeon Cardiac Surg 04/02/24 Juvencio Saeed MD [address] [place], [place] [id number] Primary Staff Physician Cardiology 04/02/24 Hims Manager Relationship Specialty Start Date End Date Claudine Durán MD [address] [place] [address] PCP - General Internal Medicine 03/02/16 Will Hurley [address] [place] [address] Referring Rheumatology 04/09/18 Jimbo Swanson APRN.RPG PROGRAMMER [address] [place] [address] [facility] Internal Medicine 01/28/24 Twyla Cuevas APRN.TREE DOCTOR [address] [place] [address] Informatics Spec Internal Medicine 01/28/24 Delfina Francis MD [address] [place], [place] 0242295 Surgeon Cardiac Surg 04/02/24 Juvencio Saeed MD [address] [place], [place] 5458695 Primary Staff Physician Cardiology 04/02/24 Hims Manager Relationship Specialty Start Date End Date Claudine Durán MD [address] [place], [place] 944711 PCP - General Internal Medicine 03/02/16 Will Hurley [address] [place] [facility] [address] Referring Rheumatology 04/09/18 Jimbo Swanson, GATE CLERK.RPG PROGRAMMER [address] [place], [place] 059181 Informatics Spec Internal Medicine 01/28/24 Twyla Cuevas GATE CLERK.TREE DOCTOR [address] [place] [address] Informatics Spec Internal Medicine 01/28/24 Delfina Francis MD [address] [place] [address] Surgeon Cardiac Surg 04/02/24 Juvencio Saeed MD [address] [place] [address] Primary Staff Physician Cardiology 04/02/24 Hims Manager Relationship Specialty Start Date End Date Claudine Durán MD [address] [place] [address] PCP - General Internal Medicine 03/02/16 Will Hurley [address] [place] [address] Referring Rheumatology 04/09/18 Jimbo Swanson, GATE CLERK.RPG PROGRAMMER [address] [place], [place] 308861 [facility] Internal Medicine 01/28/24 Twyla Cuevas APRN.TREE DOCTOR [address] [place] [address] [phone] [facility] Internal Medicine 01/28/24 Delfina Francis MD [address] [place], [place] 4547195 Surgeon Cardiac Surg 04/02/24 Juvencio Saeed MD [address] [place], [place] [id number] Primary Staff Physician Cardiology 04/02/24 Pili Benitez, lift operatorCorncob Pipe Supervisor 04/11/24 Hims Manager Relationship Specialty Start Date End Date Claudine Durán MD [address] [place] [address] PCP - General Internal Medicine 03/02/16 Will Hurley [address] [place], [place] 373883 Referring Rheumatology 04/09/18 Jimbo Swanson APRN.RPG PROGRAMMER [address] [place] [address] [facility] Internal Medicine 01/28/24 Twyla Cuevas APRN.TREE DOCTOR [address] [place] [address] [id number] [facility] Internal Medicine 01/28/24 Delfina Francis MD [address] [place] [address] Surgeon Cardiac Surg 04/02/24 Juvencio Saeed MD [address] [place] [address] Primary Staff Physician Cardiology 04/02/24 Pili Benitez, lift operatorCorncob Pipe Supervisor 04/11/24 Hims Manager Relationship Specialty Start Date End Date Claudine Durán MD [address] [place], [place] 082951 PCP - General Internal Medicine 03/02/16 Will Hurley [address] [place], [place] 93041333 Referring Rheumatology 04/09/18 Jimbo Swanson APRN.RPG PROGRAMMER [address] [place], [place] 770961 Informatics Spec Internal Medicine 01/28/24 Twyla Cuevas APRN.TREE DOCTOR [address] [place], [place] 92273691 Informatics Spec Internal Medicine 01/28/24 Delfina Francis MD [address] [place] [address] Surgeon Cardiac Surg 04/02/24 Juvencio Saeed MD [address] [place], [place] 2456595 Primary Staff Physician Cardiology 04/02/24 Pili Benitez, lift operatorCorncob Pipe Supervisor 04/11/24 Hims Manager Relationship Specialty Start Date End Date Claudine Durán MD [address] [place] [address] PCP - General Internal Medicine 03/02/16 Will Hurley [address] [place] [place] [address] Referring Rheumatology 04/09/18 Jimbo Swanson, CONNIE.RPG PROGRAMMER [address] [facility] [address] Informatics Spec Internal Medicine 01/28/24 Twyla Cuevas GATE CLERK.TREE DOCTOR [address] [facility] [place] [address] Informatics Spec Internal Medicine 01/28/24 Delfina Francis MD [address] [place], [place] 6038895 Surgeon Cardiac Surg 04/02/24 Juvencio Saeed MD [address] [place], [place] 7705995 Primary Staff Physician Cardiology 04/02/24 Pili Benitez, lift operatorCorncob Pipe Supervisor 04/11/24 Hims Manager Relationship Specialty Start Date End Date Claudine Durán MD [address] [place] [address] PCP - General Internal Medicine 03/02/16 Will Hurley [address] [place] [place] [address] Referring Rheumatology 04/09/18 Jimbo Swanson APRN.RPG PROGRAMMER [address] [place] [address] Informatics Spec Internal Medicine 01/28/24 Twyla Cuevas GATE CLERK.TREE DOCTOR [address] [place] [address] Informatics Spec Internal Medicine 01/28/24 Delfina Francis MD [address] [place] [address] Surgeon Cardiac Surg 04/02/24 Juvencio Saeed MD [address] [place], [place] 8844595 Primary Staff Physician Cardiology 04/02/24 Pili Benitez, lift operatorCorncob Pipe Supervisor 04/11/24 Hims Manager Relationship Specialty Start Date End Date Claudine Durán MD [address] [place] [address] PCP - General Internal Medicine 03/02/16 Will Hurley [address] [place] [address] Referring Rheumatology 04/09/18 Jimbo Swanson, CONNIE.RPG PROGRAMMER [address] [place] [address] Informatics Spec Internal Medicine 01/28/24 Twyla Cuevas APRN.TREE DOCTOR [address] [place] [address] Informatics Spec Internal Medicine 01/28/24 Delfina Francis MD [address] [place] [address] Surgeon Cardiac Surg 04/02/24 Juvencio Saeed MD [address] [place] [address] Primary Staff Physician Cardiology 04/02/24 Pili Benitez, lift operatorCorncob Pipe Supervisor 04/11/24 Hims Manager Relationship Specialty Start Date End Date Claudine Durán MD [address] [place], [place] 867831 PCP - General Internal Medicine 03/02/16 Will Hurley [address] [facility] [place] [address] Referring Rheumatology 04/09/18 Jimbo Swanson APRN.RPG PROGRAMMER [address] [place], [place] 77007691 Informatics Spec Internal Medicine 01/28/24 Twyla Cuevas APRN.TREE DOCTOR [address] [place], [place] 328791 Informatics Spec Internal Medicine 01/28/24 Delfina Francis MD [address] [place] [address] Surgeon Cardiac Surg 04/02/24 Juvencio Saeed MD [address] [place], [place] 0368295 Primary Staff Physician Cardiology 04/02/24 Pili Benitez, lift operatorCorncob Pipe Supervisor 04/11/24 Hims Manager Relationship Specialty Start Date End Date Claudine Durán MD [address] [place], [place] 450821 PCP - General Internal Medicine 03/02/16 Will Hurley [address] [facility] [place] [address] Referring Rheumatology 04/09/18 Jimbo Swanson, GATE CLERK.RPG PROGRAMMER [address] [facility] [place] [address] Informatics Spec Internal Medicine 01/28/24 Twyla Cuevas APRN.TREE DOCTOR [address] [place] [address] [facility] Internal Medicine 01/28/24 Delfina Francis MD [address] [place], [place] 4780795 Surgeon Cardiac Surg 04/02/24 Juvencio Saeed MD [address] [facility] [place] [place] 8675[address] Primary Staff Physician Cardiology 04/02/24 Pili Benitez, lift operatorCorncob Pipe Supervisor 04/11/24 Hims Manager Relationship Specialty Start Date End Date Claudine Durán MD [address] [place] [address] PCP - General Internal Medicine 03/02/16 Will Hurley [address] [place], [place] 998333 Referring Rheumatology 04/09/18 Jimbo Swanson, CONNIE.RPG PROGRAMMER [address] [place] [address] [facility] Internal Medicine 01/28/24 Twyla Cuevas APRN.TREE DOCTOR [address] [facility] [place] [address] [facility] Internal Medicine 01/28/24 Delfina Francis MD [address] [facility] [place] [address] Surgeon Cardiac Surg 04/02/24 Juvencio Saeed MD [address] [place], [place] 7696195 Primary Staff Physician Cardiology 04/02/24 Pili Benitez, lift operatorCorncob Pipe Supervisor 04/11/24 Hims Manager Relationship Specialty Start Date End Date Claudine Durán MD [address] [place] [address] PCP - General Internal Medicine 03/02/16 Will Hurley [address] [place] [address] Referring Rheumatology 04/09/18 Jimbo Swanson, CONNIE.RPG PROGRAMMER [address] [place] [address] Informatics Spec Internal Medicine 01/28/24 Twyla Cuevas APRN.TREE DOCTOR [address] [place] [address] Informatics Spec Internal Medicine 01/28/24 Delfina Francis MD [address] [facility] [place] [address] Surgeon Cardiac Surg 04/02/24 Juvencio Saeed MD [address] [facility] [place] [address] Primary Staff Physician Cardiology 04/02/24 Pili Benitez, lift operatorCorncob Pipe Supervisor 04/11/24 Pili Benitez, lift operator Jail Officer 05/05/24 Hims Manager Relationship Specialty Start Date End Date Claudine Durán MD [address] [place], [place] 216991 PCP - General Internal Medicine 03/02/16 Will Hurley [address] [place] [address] Referring Rheumatology 04/09/18 Jimbo Swanson, CONNIE.RPG PROGRAMMER [address] [place], [place] 369151 Informatics Spec Internal Medicine 01/28/24 Twyla Cuevas APRN.TREE DOCTOR [address] [place], [place] 774931 Informatics Spec Internal Medicine 01/28/24 Delfina Francis MD [address] [place], [place] 7321695 Surgeon Cardiac Surg 04/02/24 Juvencio aSeed MD [address] [place], [place] 6981895 Primary Staff Physician Cardiology 04/02/24 Pili Benitez, lift operatorCorncob Pipe Supervisor 04/11/24 Pili Benitez, lift operator Jail Officer 05/05/24 Hims Manager Relationship Specialty Start Date End Date Claudine Durán MD [address] [place], [place] 612061 PCP - General Internal Medicine 03/02/16 Will Hurley [address] [place] [address] Referring Rheumatology 04/09/18 Jimbo Swanson, CONNIE.RPG PROGRAMMER [address] [place] [address] Informatics Spec Internal Medicine 01/28/24 Twyla Cuevas APRN.TREE DOCTOR [address] [place] [address] Informatics Spec Internal Medicine 01/28/24 Delfina Francis MD [address] [facility] [place], [place] 0825995 Surgeon Cardiac Surg 04/02/24 Juvencio Saeed MD [address] [facility] [place], [place] 2839295 Primary Staff Physician Cardiology 04/02/24 Pili Benitez, lift operatorCorncob Pipe Supervisor 04/11/24 Hims Manager Relationship Specialty Start Date End Date Claudine Durán MD [address] [place] [address] PCP - General Internal Medicine 03/02/16 Will Hurley [address] [place] [address] Referring Rheumatology 04/09/18 Jimbo Swanson, CONNIE.RPG PROGRAMMER [address] [place] [address] Informatics Spec Internal Medicine 01/28/24 Twyla Cuevas APRN.TREE DOCTOR [address] [place] [address] Informatics Spec Internal Medicine 01/28/24 05/09/24 Delfina Francis MD [address] [facility] [place] [address] Surgeon Cardiac Surg 04/02/24 Juvencio Saeed MD [address] [place] [address] Primary Staff Physician Cardiology 04/02/24 Pili Benitez, lift operatorCorncob Pipe Supervisor 04/11/24 Pili Benitez, lift operator Jail Officer 05/05/24 Hims Manager Relationship Specialty Start Date End Date Claudine Durán MD [address] [place], [place] 189511 PCP - General Internal Medicine 03/02/16 Will [address]ley [address] [place] [address] Referring Rheumatology 04/09/18 Jimbo Swanson APRN.TYLOR [address] [place], [place] 749031 Informatics Spec Internal Medicine 01/28/24 Delfina Francis MD [address] [facility] [place], [place] 9807995 Surgeon Cardiac Surg 04/02/24 Juvencio Saeed MD [address] [facility] [place], [place] 7843595 Primary Staff Physician Cardiology 04/02/24 Pili Benitez, lift operatorCorncob Pipe Supervisor 04/11/24 Pili Benitez, lift operator Jail Officer 05/05/24 Hims Manager Relationship Specialty Start Date End Date Claudine Durán MD [address] [place], [place] 251821 PCP - General Internal Medicine 03/02/16 Will Hurley [address] [place] [facility] [place] [address] Referring Rheumatology 04/09/18 Jimbo Swanson, GATE CLERK.RPG PROGRAMMER [address] [facility] [place] 264501 Informatics Spec Internal Medicine 01/28/24 Delfina Francis MD [address] [place], [place] 7282395 Surgeon Cardiac Surg 04/02/24 Juvencio Saeed MD [address] [place], [place] 0156895 Primary Staff Physician Cardiology 04/02/24 Pili Benitez, lift operatorCorncob Pipe Supervisor 04/11/24 Pili Benitez, lift operator Jail Officer 05/05/24 Twyla Cuevas GATE CLERK.TREE DOCTOR [address] [place], [place] 370791 Informatics Spec Internal Medicine 05/13/24 Hims Manager Relationship Specialty Start Date End Date Claudine Durán MD [address] [facility] [place] 182631 PCP - General Internal Medicine 03/02/16 Will Hurley [address] [place] [facility] [place] [address] Referring Rheumatology 04/09/18 Jimbo Swanson, GATE CLERK.RPG PROGRAMMER [address] [facility] [place] 645431 Informatics Spec Internal Medicine 01/28/24 Delfina Francis MD [address] [place] [address] Surgeon Cardiac Surg 04/02/24 Juvencio Saeed MD [address] [place] [address] Primary Staff Physician Cardiology 04/02/24 Pili Benitez, lift operatorCorncob Pipe Supervisor 04/11/24 Pili Benitez, lift operator Jail Officer 05/05/24 Twyla Cuevas GATE CLERK.TREE DOCTOR [address] [place], [place] 689071 [facility] Internal Medicine 05/13/24 Hims Manager Relationship Specialty Start Date End Date Claudine Durán MD [address] [place] [address] PCP - General Internal Medicine 03/02/16 Will Hurley [address] [place], [place] 018043 Referring Rheumatology 04/09/18 Jimbo Swanson APRN.RPG PROGRAMMER [address] [place] [address] [facility] Internal Medicine 01/28/24 Delfina Francis MD [address] [place] [address] Surgeon Cardiac Surg 04/02/24 Juvencio Saeed MD [address] [place] [address] Primary Staff Physician Cardiology 04/02/24 Pili Benitez, lift operatorCorncob Pipe Supervisor 04/11/24 Pili Benitez, lift operator Jail Officer 05/05/24 Twyla Cuevas, GATE CLERK.TREE DOCTOR [address] [place] [address] Informatics Spec Internal Medicine 05/13/24 Hims Manager Relationship Specialty Start Date End Date Claudine Durán MD [address] [place] [address] PCP - General Internal Medicine 03/02/16 Will Hurley [address] [place] [address] Referring Rheumatology 04/09/18 Jimbo Swanson APRN.RPG PROGRAMMER [address] [place] [address] [facility] Internal Medicine 01/28/24 Delfina Francis MD [address] [place], [place] 2151995 Surgeon Cardiac Surg 04/02/24 Juvencio Saeed MD [address] [place], [place] 3589495 Primary Staff Physician Cardiology 04/02/24 Pili Benitez, lift operatorCorncob Pipe Supervisor 04/11/24 Pili Benitez, lift operator Jail Officer 05/05/24 Twyla Cuevas, GATE CLERK.TREE DOCTOR [address] [place] [address] Informatics Spec Internal Medicine 05/13/24 Team Status: Active Member [...] Referring Provider Active Start: Ap ril 2024 Hims Manager Relationship Specialty Start Date End Date Claudine Durán MD [address] [place], [place] 391381 PCP - General Internal Medicine 03/02/16 Will Hurley [address] [place], [place] 701283 Referring Rheumatology 04/09/18 Jimbo Swanson, GATE CLERK.RPG PROGRAMMER [address] [place], [place] 503511 Informatics Spec Internal Medicine 01/28/24 Delfina Francis MD [address] [place], [place] 7989295 Surgeon Cardiac Surg 04/02/24 Juvencio Saeed MD [address] [place] [address] Primary Staff Physician Cardiology 04/02/24 Pili Benitez, lift operatorCorncob Pipe Supervisor 04/11/24 Twyla Cuevas, GATE CLERK.TREE DOCTOR [address] [place], [place] 228291 Informatics Spec Internal Medicine 05/13/24 Hims Manager Relationship Specialty Start Date End Date Claudine Durán MD [address] [place], [place] 283631 PCP - General Internal Medicine 03/02/16 Will Hurley [address] [place] [address] Referring Rheumatology 04/09/18 Jimbo Swanson, GATE CLERK.RPG PROGRAMMER [address] [place] [address] Informatics Spec Internal Medicine 01/28/24 Delfina Francis MD [address] [place], [place] 9428495 Surgeon Cardiac Surg 04/02/24 Juvencio Saeed MD [address] [place], [place] 4374495 Primary Staff Physician Cardiology 04/02/24 Pili Benitez, lift operatorCorncob Pipe Supervisor 04/11/24 Twyla Cuevas, GATE CLERK.TREE DOCTOR [address] [place] [address] Informatics Spec Internal Medicine 05/13/24 Hims Manager Relationship Specialty Start Date End Date Claudine Durán MD [address] [place] [address] PCP - General Internal Medicine 03/02/16 Will Hurley [address] [place] [address] Referring Rheumatology 04/09/18 Jimbo Swanson, GATE CLERK.RPG PROGRAMMER [address] [place] [address] Informatics Spec Internal Medicine 01/28/24 Delfina Francis MD [address] [place] [address] Surgeon Cardiac Surg 04/02/24 Juvencio Saeed MD [address] [place], [place] 5414995 Primary Staff Physician Cardiology 04/02/24 Pili Benitez, lift operatorCorncob Pipe Supervisor 04/11/24 Twyla Cuevas APRN.TREE DOCTOR [address] [place] [address] [facility] Internal Medicine 05/13/24 Hims Manager Relationship Specialty Start Date End Date Claudine Durán MD [address] [place] [address] PCP - General Internal Medicine 03/02/16 Will Hurley [address] [place], [place] 016283 Referring Rheumatology 04/09/18 Jimbo Swanson APRN.RPG PROGRAMMER [address] [place] [address] Informatics Spec Internal Medicine 01/28/24 Delfina Francis MD [address] [place] [address] Surgeon Cardiac Surg 04/02/24 Juvencio Saeed MD [address] [facility] [place] [address] Primary Staff Physician Cardiology 04/02/24 Pili Benitez, lift operatorCorncob Pipe Supervisor 04/11/24 Twyla Cuevas APRN.TREE DOCTOR [address] [facility] [place] [address] Internal Medicine 05/13/24 Hims Manager Relationship Specialty Start Date End Date Claudine Durán MD [address] [facility] [address] PCP - General Internal Medicine 03/02/16 Will Hurley [address] [facility] [place] [address] Referring Rheumatology 04/09/18 Jimbo Swanson APRN.RPG PROGRAMMER [address] [place] [address] [facility] Internal Medicine 01/28/24 Delfina Francis MD [address] [place], [place] 5487495 Surgeon Cardiac Surg 04/02/24 Juvencio Saeed MD [address] [place], [place] 5133195 Primary Staff Physician Cardiology 04/02/24 Plii Benitez, lift operatorCorncob Pipe Supervisor 04/11/24 Twyla Cuevas GATE CLERK.TREE DOCTOR [address] [place], [place] 981361 [facility] Internal Medicine 05/13/24 Team Status: Inactive Member Role Status Dates Dr. Claudine Durán MD Primary Care Provider Active Start: June 18, 2024 End: June 18, 2024 CHRISTOPHE LOWRY Attending Provider Active Start: 2024 End: June 18, 2024 CHRISTOPHE LOWRY [...] CHRISTOPHE LOWRY Attending Provider Active Start: Sandy y 2024 End: July 19, 2024 CHRISTOPHE LOWRY Referring Provider Active Start: Sandy y 2024 End: July 19, 2024 Hims Manager Relationship Specialty Start Date End Date Claudine Durán MD [address] [place] [address] PCP - General Internal Medicine 03/02/16 Will Hurley [address] [place] [address] Referring Rheumatology 04/09/18 Delfina Francis MD [address] [facility] [place] [address] Surgeon Cardiac Surg 04/02/24 Juvencio Saeed MD [address] [facility] [address] Primary Staff Physician Cardiology 04/02/24 Twyla Cuevas APRN.TREE DOCTOR [address] [place] [address] Informatics Spec Internal Medicine 05/13/24 Jimbo Swanson APRN.RPG PROGRAMMER [address] [place] [address] Informatics Spec Internal Medicine 07/09/24 Hims Manager Relationship Specialty Start Date End Date Claudine Durán MD [address] [place] [address] PCP - General Internal Medicine 03/02/16 Will Hurley [address] [facility] [address] Referring Rheumatology 04/09/18 Delfina Francis MD [address] [place], [place] [id number] Surgeon Cardiac Surg 04/02/24 Juvencio Saeed MD [address] [place], [place] [id number] Primary Staff Physician Cardiology 04/02/24 Twyla Cuevas, GATE CLERK.TREE DOCTOR [address] [place] [address] Informatics Spec Internal Medicine 05/13/24 Jimbo Swanson, GATE CLERK.RPG PROGRAMMER [address] [place] [address] Informatics Spec Internal Medicine 07/09/24 Hims Manager Relationship Specialty Start Date End Date Claudine Durán MD [address] [facility] [place] [address] PCP - General Internal Medicine 03/02/16 Will Hurley [address] [place], [place] [address] Referring Rheumatology 04/09/18 Delfina Francis MD [address] [place], [place] [id number] Surgeon Cardiac Surg 04/02/24 Juvencio Saeed MD [address] [place], [place] [id number] Primary Staff Physician Cardiology 04/02/24 Twyla Cuevas APRN.TREE DOCTOR [address] [place] [address] [facility] Internal Medicine 05/13/24 Jimbo Swanson APRN.RPG PROGRAMMER [address] [place] [address] [facility] Internal Medicine 07/09/24 Hims Manager Relationship Specialty Start Date End Date Claudine Durán MD [address] [place] [address] PCP - General Internal Medicine 03/02/16 Will Hurley [address] [place], [place] [id number] Referring Rheumatology 04/09/18 Delfina Francis MD [address] [place] [address] Surgeon Cardiac Surg 04/02/24 Juvencio Saeed MD [address] [place], [place] [id number] Primary Staff Physician Cardiology 04/02/24 Twyla Cuevas GATE CLERK.TREE DOCTOR [address] [place] [address] Informatics Spec Internal Medicine 05/13/24 Jimbo Swanson, GATE CLERK.RPG PROGRAMMER [address] [place] [address] Informatics Spec Internal Medicine 07/09/24 Hims Manager Relationship Specialty Start Date End Date Claudine Durán MD [address] [place] [address] PCP - General Internal Medicine 03/02/16 Will Hurley [address] [place] [address] Referring Rheumatology 04/09/18 Delfina Francis MD [address] [place], [place] [id number] Surgeon Cardiac Surg 04/02/24 Juvencio Saeed MD [address] [place], [place] [id number] Primary Staff Physician Cardiology 04/02/24 Twyla Cuevas GATE CLERK.TREE DOCTOR [address] [place] [address] Informatics Spec Internal Medicine 05/13/24 Jimbo Swanson, GATE CLERK.RPG PROGRAMMER [address] [place], [place] [address] Informatics Spec Internal Medicine 07/09/24 Team Status: Active Member [...] CHRISTOPHE LOWRY Attending Provider Active Start: Ma y 2024 End: July 19, 2024 CHRISTOPHE LOWRY Referring Provider Active Start: Ma y 2024 End: July 19, 2024 Team Status: Inactive Member Role/Relationship Status Dates Dr. Claudine Durán MD Primary Care Provider Active Start: August 18, 2024 End: August 18, 2024 CHRISTOPHE LOWRY Attending Provider Active Start: Ju ne 2024 End: August 18, 2024 CHRISTOPHE LOWRY Referring Provider Active Start: Ju ne 2024 End: August 18, 2024 Hims Manager Relationship Specialty Start Date End Date Claudine Durán MD [address] [place] [address] PCP - General Internal Medicine 03/02/16 Will Hurley [address] [facility] [place] [address] Referring Rheumatology 04/09/18 Delfina Francis MD [address] [facility] [place], [place] [id number] Surgeon Cardiac Surg 04/02/24 Juvencio Saeed MD [address] [facility] [place] [address] Primary Staff Physician Cardiology 04/02/24 Twyla Cuevas, GATE CLERK.TREE DOCTOR [address] [place], [place] [id number] Informatics Spec Internal Medicine 05/13/24 Jimbo Swanson, GATE CLERK.RPG PROGRAMMER [address] [place], [place] [id number] Informatics Spec Internal Medicine 07/09/24 Team Status: Active Member Role/Relationship Status Dates Dr. Claudine Durán MD Primary Care Provider Active Start: August 20, 2024 CHRISTOPHE LOWRY Attending Provider Active Start: Nasrin nascimento 2024 CHRISTOPHE LOWRY Referring Provider Active Start: Nasrin nascimento 2024 Team Status: Active Member Role/Relationship Status Dates Dr. Claduine Durán MD Primary Care Provider Active Start: [...] rt: August 27, 2024 Dr. Jasmyn Chan , Attending Provider Active Start: August 27, 2024 Dr. Jasmyn Chan DO Other Provider Active S tart: August 27, 2024 Team Status: Inactive Member Role/Relationship Status Dates Dr. Claudine Durán MD Primary Care Provider Active Start: August 20, 2024 End: September 18, 2024 CHRISTOPHE LOWRY Attending Provider Active Start: Ju ly 2024 End: September 18, 2024 CHRISTOPHE LOWRY Referring Provider Active Start: Ju ly 2024 End: September 18, 2024 Team Status: [...] Attending Provider Active Start: September 18, 2024 Team Status: Inactive Member Role/Relationship Status Dates Dr. Claudine Durán MD Primary Care Provider Active Start: June 18, 2024 End: June 18, 2024 CHRISTOPHE LOWRY Attending Provider Active Start: Ap [facility] [place] 2024 End: June 18, 2024 CHRISTOPHE LOWRY Referring Provider Active Start: Ap [facility] 2024 End: June 18, 2024 Team Status: [...] Nasrin chapa 2024 End: August 18, 2024 Team Status: Inactive Member Role/Relationship Status Dates Dr. Claudine Durán MD Primary Care Provider Active Start: August 20, 2024 End: September 18, 2024 CHRISTOPHE LOWRY Attending Provider Active Start: Nasrin nascimento 2024 End: September 18, 2024 CHRISTOPHE LOWRY Referring Provider Active Start: 2024 End: September 18, 2024 Team Status: Inactive Member Role/Relationship [...] S tart: August 27, 2024 Team Status: Active Member Role/Relationship Status Dates Dr. Claudine Durán MD Primary Care Provider Active Start: August 28, 2024 Zaynab NOLEN MD Attending Provider Active Start: August 28, 2024 Team Status: Active Member Role/Relationship Status Dates Dr. Claudine Durán MD Primary Care Provider Active Start: September 01, 2024 Zaynab NOLEN MD Attending Provider Active Start: September 01, 2024 Team Status: Inactive Member Role/Relationship Status Dates Dr. Claudine Durán MD Primary Care Provider Active Start: September 02, 2024 End: September 02, 2024 Dr. Zaynab Pina MD Attending Provider Active Start: September 02, 2024 End: September 02, 2024 Team Status: Active Member Role/Relationship Status Dates Dr. Claudine Durán MD Primary Care Provider Active Start: September 15, 2024 Zaynab NOLEN MD Attending Provider Active Start: September 15, 2024 Zaynab NOLEN MD Referring Provider Active Start: September 15, 2024 Team Status: Active Member Role/Relationship Status Dates Dr. Claudine Durán MD Primary Care Provider Active Start: September 22, 2024 Zaynab NOLEN MD Attending Provider Active Start: September 22, 2024 Team Status: Active Member Role/Relationship Status Dates Dr. Claudine Durán MD Primary Care Provider Active Start: September 25, 2024 Zaynab NOLEN MD Attending Provider Active Start: September 25, 2024 Zaynab NOLEN MD Referring Provider Active Start: September 25, 2024 Team Status: Active Member Role/Relationship Status Dates Dr. Claudine Durán MD Primary Care Provider Active Start: September 29, 2024 Zaynab NOLEN MD Attending Provider Active Start: September 29, 2024 Team Status: Active Member Role/Relationship Status Dates Dr. Claudine Durán MD Primary Care Provider Active Start: October 02, 2024 Zaynab NOLEN MD Attending Provider Active Start: October 02, 2024 Team Status: Inactive Member Role/Relationship Status Dates Dr. Claudine Durán MD Primary Care Provider Active Start: August 28, 2024 End: August 28, 2024 Fadia Pizarro WHISKEY FILTERER, WHISKEY FILTERER-C Attending Provider Active Start: August 28, 2024 End: August 28, 2024 Team Status: Inactive Member Role/Relationship Status Dates Dr. Claudine Durán MD Primary Care Provider Active Start: September 02, 2024 End: September 02, 2024 Dr. Zaynab Pina MD Attending Provider Active Start: September 02, 2024 End: September 02, 2024 Team Status: Active Member Role/Relationship Status [...] Attending Provider Active Start: September 15, 2024 Zaynab NOLEN MD Referring Provider Active Start: September 15, 2024 Team Status: Active Member Role/Relationship Status Dates Dr. Claudine Durán MD Primary Care Provider Active Start: September 18, 2024 Zaynab NOLEN MD Attending Provider Active Start: September 18, 2024 Team Status: Active Member Role/Relationship Status Dates Dr. Claudine Durán MD Primary Care Provider Active Start: September 22, 2024 Zaynab NOLEN MD Attending Provider Active Start: September 22, 2024 Team Status: Active Member Role/Relationship Status Dates Dr. Claudine Durán MD Primary Care Provider Active Start: September 25, 2024 Zaynab NOLEN MD Attending Provider Active Start: September 25, 2024 Zaynab NOLEN MD Referring Provider Active Start: September 25, 2024 Team Status: Active Member Role/Relationship Status Dates Dr. Claudine Durán MD Primary Care Provider Active Start: September 29, 2024 Zaynab NOLEN MD Attending Provider Active Start: September 29, 2024 Team Status: Active Member Role/Relationship Status Dates Dr. Claudine Durán MD Primary Care Provider Active Start: October 02, 2024 Zaynab NOLEN MD Attending Provider Active Start: October 02, 2024 Goals (unrecognized section and content) Goals [...] BE BASED ON THE PRIMARY CLINICAL RECORDS. [facility]. provides no warranty or guarantee of the accuracy or completeness of information in this document.
[2024-10-19 01:22] LABS: Prothrombin Time (Protime)PT. 25.2 SECONDS (11.7-14.9)
[2024-10-19 02:37] VITALS: BP 112/88; PULSE 80; RESP 18; TEMP 36.8; O2SAT 99
[2024-10-19 02:41] VITALS: BP 112/88; PULSE 81; RESP 18; O2SAT 99
== END 2024-10-19 03:53 | disposition home or self-care (01) ==
PROVIDERS: Emergency Provider Student in an Organized Health Care Education/Training Program; PCP Internal Medicine; Visit Provider Student in an Organized Health Care Education/Training Program
DX: S51.012A Laceration without foreign body of left elbow, initial encounter (principal); I11.0 Hypertensive heart disease with heart failure; I50.9 Heart failure, unspecified; J44.9 Chronic obstructive pulmonary disease, unspecified; Z86.718 Personal history of other venous thrombosis and embolism; Z79.01 Long term (current) use of 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; W01.10XA Fall on same level from slipping, tripping and stumbling with subsequent striking against unspecified object, initial encounter; Y93.89 Activity, other specified; Y92.009 Unspecified place in unspecified non-institutional (private) residence as the place of occurrence of the external cause; Z79.51 Long term (current) use of inhaled steroids; Z79.899 Other long term (current) drug therapy
CPT/HCPCS: 36415; 70450; 72125; 85610; 99284

== ENCOUNTER 2024-11-08 15:33 | Observation (INO) | payer MEDICARE, SELFPAY ==
[2024-11-08 15:34] VITALS: BP 131/67; PULSE 83; RESP 18; TEMP 36.9; O2SAT 98
--- NOTE | 2024-11-08 16:46 | RAD_ITS ---
PROCEDURE: KNEE 1 OR 2 VIEWS 11/08/2024 REASON FOR EXAM: INJURY/PAIN TECHNIQUE: Procedure Code: RADK Modality: DX Procedure: KNEE 1 OR 2 VIEWS Laterality: Right COMPARISON: None FINDINGS: Osseous: There is severe femorotibial joint space loss more pronounced involving the lateral compartment with [id number] appearance and subchondral bony sclerosis with marginal osteophytes. Proximal tibiofibular congruency is maintained. The knee is held in slight flexion. Subarticular bony step-off noted along the femoral trochlea on the lateral view suggesting subchondral fracture of indeterminate acuity. This could be acute, given the patellar findings. Patellar height is within normal range. Patellofemoral joint spacing and alignment is not reliably assessed on the views obtained. If indicated consider a sunrise view. Patellofemoral osteoarthritic changes noted. There is a horizontal minimally displaced fracture extending transversely through the patella. This appears acute. Soft tissues: Moderately large high-density suprapatellar effusion consistent with hemarthrosis. There may be lipohemarthrosis. Mild prepatellar soft tissue swelling. Soft tissue injury is not well assessed by this technique. Vascular: Extensive vascular calcifications noted. RAD/Knee 1 or 2 Views IMPRESSION: Acute transverse patellar fracture. - Moderately large associated complex suprapatellar effusion. - Possible trochlear subchondral impaction injury. - Other findings discussed above. Reading Location: [id number]
--- NOTE | 2024-11-08 16:48 | ED.VIS.FALL ---
HPI HPI - Fall History of Present Illness Chief Complaint: Fall Informant: patient Narrative Narrative: Patient is a 79-year-old female with history of severe aortic stenosis, COPD, CHF, hypertension, DVT on Coumadin therapy, and rheumatoid arthritis presenting for right knee injury after a fall. She states that she was sitting at the [place] in the chair feeling her meds. She states she has not been sleeping well at night as she had shingles and is up all night because she has persistent issues with neuropathy and pain. [place] then fell off her chair. She woke up immediately as she was falling and landed on her right knee. Her knee was bent at the time (flexed). She adamantly denies hitting her head. She states he is otherwise been in her normal state of health. She has home health care but lives home alone. She uses a walker to ambulate normally. She called friends and they helped her up and assisted her to the car and brought her in for emergency rooms evaluation. She denies any associate numbness or tingling. She is complain of pain at the anterior medial aspect of her right knee. Does have some swelling. Is able to move her leg but states it is painful. States is very painful to try to put weight on it. Denies any numbness or tingling. No other injuries or concerns at this time. [facility] Medical History Declining functional status Closed head injury without concussion Closed fracture of distal end of left radius Hypertension GERD (gastroesophageal reflux disease) Pericardial effusion CHF (congestive heart failure) Wears glasses Walker as ambulation aid Ambulates with cane Arthritis Excessive bleeding Easy bruising History of ulceration History of GI bleed Gastric reflux Emphysema, unspecified Cardiology follow-up encounter History of edema Severe aortic stenosis ABLA (acute blood loss anemia) Thrombocytopenia Adult failure to thrive Leg edema Rheumatoid arthritis COPD (chronic obstructive pulmonary disease) Former smoker DVT (deep venous thrombosis) Pulmonary embolism Colitis COVID-19 Histoplasmosis Home Medications ?Medication ?Instructions ?Recorded ?Last Taken ?Type multivitamin (Daily Multi-Vitamin 1 tab PO DAILY supplement 03/19/23 10/01/23 History tablet) vitamins A,C,G-bsyz-gipccm 2,148 2 tab PO DAILY eye health 03/19/23 10/01/23 History mcg-113 mg-45 mg-17.4 mg tablet (PreserVision AREDS) gabapentin 300 mg capsule 300 mg PO Q12 nerve pain #0 caps 04/05/23 10/01/23 Rx potassium chloride 20 mEq 20 meq PO BIDCM #0 tabs 04/27/23 10/01/23 Rx tablet,extended release(part/cryst) fluticasone propionate 50 1 spray intranasal DAILY 08/13/23 10/02/23 History mcg/actuation nasal spray,suspension tiotropium bromide 2.5 2 puff inhalation DAILY 08/13/23 10/02/23 History mcg/actuation mist for inhalation (Spiriva Respimat) diclofenac sodium 1 % topical gel 4 g topical BID PRN PRN knee pain 08/18/23 10/02/23 Rx (Voltaren Arthritis Pain) #100 grams albuterol sulfate 90 mcg/actuation 2 puff inhalation Q4H PRN PRN 06/13/24 Unknown History aerosol inhaler shortness of breath or wheezing cholecalciferol (vitamin D3) 25 25 mcg PO QDAY 06/13/24 Unknown History mcg (1,000 unit) capsule fluticasone 250 mcg-salmeterol 50 1 inh inhalation BID 06/13/24 Unknown History mcg/dose blistr powdr for inhalation (Wixela Inhub) folic acid 0.8 mg capsule 0.8 mg PO QDAY 06/13/24 Unknown History methotrexate sodium 2.5 mg tablet 10 mg PO QWEEK 06/13/24 Unknown History sulfasalazine 500 mg 1 g PO BID 06/13/24 Unknown History tablet,delayed release acetaminophen 500 mg tablet 1,000 mg PO TID Pain Score 1-10 06/20/24 Unknown History clindamycin HCl 300 mg capsule 600 mg (2 x 300 mg) PO ONCE #2 caps 06/20/24 Unknown Rx ferrous sulfate 325 mg (65 mg 325 mg PO QDAY 06/20/24 Unknown History iron) tablet metoprolol succinate 25 mg 25 mg PO QDAY #30 tabs 07/18/24 Unknown Rx tablet,extended release 24 hr folic acid 1 mg tablet 1 mg PO DAILY 08/23/24 Unknown History warfarin 1 mg tablet 5 mg PO DAILY 08/23/24 Unknown History warfarin 5 mg tablet See Rx Instructions .Route .COMPLEX 08/23/24 Unknown History gabapentin 300 mg capsule 300 mg PO BID #0 caps 08/27/24 Unknown Rx warfarin 6 mg tablet (Jantoven) 6 mg PO DAILY 11/08/24 Unknown History Allergy/AdvReac Type Severity Reaction Status Date / Time Penicillins Allergy Severe Anaphylaxis Verified 11/08/24 15:36 Surgical History History of transcatheter aortic valve replacement (TAVR) History of back surgery History of esophagogastroduodenoscopy (EGD) History of tonsillectomy History of embolic filter insertion Hx of foot surgery Social History household members: none Smoking Status: Former smoker alcohol intake: never substance use type: does not use ROS ROS ED Constitutional Constitutional ED: Denies chills or fever(s) Eyes Eyes: Denies blurry vision Respiratory/Chest Respiratory/Chest: Denies dyspnea Gastrointestinal Gastrointestinal: Denies nausea or vomiting Musculoskeletal Musculoskeletal: Reports other Details: Right knee pain Integumentary Denies Abrasions or rash Neurologic Neurologic: Denies headache(s) or weakness Hematologic/Lymphatic Hematologic/Lymphatic: Reports easy bleeding, easy bruising and other Details: On Coumadin EXAM Physical Exam Const Vital Signs: 11/08/24 15:34 11/08/24 16:34 11/08/24 18:34 Temperature 98.4 F 98.4 F Temperature Source Oral Pulse Rate 83 83 Respiratory Rate 18 18 Respiratory Effort Normal Non-Labored Respiratory Depth Normal Respiratory Pattern Normal Blood Pressure 131/67 H 131/67 H Blood Pressure Mean 88 88 Pulse Ox 98 98 Oxygen Delivery Method Room Air Room Air Positive well nourished and well developed General Appearance ED: well developed and NAD HEENT Reports normocephalic and TM's normal bilaterally atraumatic Eyes PERRL Neck full ROM General: Negative for tenderness Chest Wall inspection of chest normal and palpation of chest normal Resp normal respiratory effort Cardio regular rate and regular rhythm Cardio Narrative: 2+ radial and DP pulses GI non-tender and non-distended Extremity Extremity Narrative: Mild deformity and swelling of the right anterior knee. Decreased range of motion of the knee limited by pain. Intact extensor mechanism. Mild joint effusion present. Pelvis is stable. No pain with range of motion of the hips. Neuro oriented x3, moves all extremities, no focal motor deficits and no sensory deficits noted [place] Coma Scale: document GCS findings Spontaneous Obeys Commands Oriented 15 Psych mental status grossly normal Skin Lesions: no lesions Rashes: no rashes MDM MDM MDM Narrative Medical decision making narrative: Patient evaluated after a fall off a stool landing on her right knee. Occurred because she fell asleep at the [facility]. [place] mechanical fall does not sound syncopal. This edition given IM morphine for pain control emergency room with minimal improvement. X-ray reviewed by myself as well as radiology does show acute transverse patellar fracture and moderately large associated complex suprapatellar effusion. Patient placed in a knee immobilizer. Case is discussed with Dr. Smith, who states that at this time she can be weightbearing as tolerated but keep in the knee immobilizer. Discussed pain control and discharge home versus admission the hospital. Patient does not have have adequate control in the ER and in addition is already on home health as she recently got out of of nursing facility for rehab/increasing her strength and lives home alone. Patient will be admitted for pain control and PT/OT evaluation as she is high risk of having fallen secondary injury given her underlying functional status and rheumatoid arthritis with increased risk of fall on anticoagulation. Patient is therapeutic on INR today at 2.0. Case discussed with hospitalist for admission Lab Data Attestation: I reviewed the patient's lab results. Labs: Laboratory Results - last 24 hr 11/08/24 17:55 WBC 8.3 RBC 3.38 L Hgb 11.3 L Hct 33.0 L MCV 97.6 MCH 33.4 H MCHC 34.2 RDW Std Deviation 53.5 H RDW Coeff of Catarino 14.9 H Plt Count 180 MPV 10.1 Immature Gran % (Auto) 0.400 Neut % (Auto) 70.1 H Lymph % (Auto) 19.2 Wilson % (Auto) 9.7 Eos % (Auto) 0.4 Baso % (Auto) 0.2 Absolute Neuts (auto) 5.9 Absolute Lymphs (auto) 1.60 Nucleated RBC % 0 PT 22.8 H INR 2.0 Sodium 133 Potassium 3.8 Chloride 99 Carbon Dioxide 21.5 Anion Gap 13 BUN 14 Creatinine 0.56 L Estim Creat Clear Calc 48.72 L Est GFR (MDRD) Non-Af 94 BUN/Creatinine Ratio 25.6 H Glucose 87 Calcium 9.4 Radiography Diagnostic Testing: Clinical Impression(s) from Imaging Studies Knee X-Ray 11/08/24 16:46 IMPRESSION: Acute transverse patellar fracture. - Moderately large associated complex suprapatellar effusion. - Possible trochlear subchondral impaction injury. - Other findings discussed above. Reading Location: [id number] Management Discussion w/another healthcare provider: Hospitalist and Roof Technician Discharge Plan Dx/Rx/DC Orders Clinical Impression: Patellar fracture, Fall from slip, trip, or stumble, Anticoagulated on Coumadin Disposition Disposition: Acute Care Hospital [facility] Discharge Date/Time: 11/08/24 19:28
--- OUTSIDE RECORDS SUMMARY | 2024-11-08 17:03 | XMS RPT_ITS | CCD ---
Author Organization [facility] Care Team Providers Care Senior Benefits Analyst Name Role Phone Mykel Santamaria Unavailable Unavailable Mykel Santamaria Unavailable Unavailable UNKNOWN, REFERR Unavailable Unavailable Will Hurley Attending Unavailable PROVIDER, UNKNOWN Referring Unavailable No, PCP Primary Care Unavailable Claudine Durán MD Primary Care Provider Will Hurley Unavailable Gold Colón RN Unavailable UnavailClaudine Cannon MD Primary Care Provider Will Hurley Unavailable Gold Colón RN Unavailable Unavailabl Will Foote Unavailable Lulú Ramos RN Unavailable [phone] Katarzyna MITCHELL, Gold Coyne Unavailable UnavailClaudine Cannon MD Primary Care Provider Will Hurley Unavailable Rachel RN, Lulú Unavailable Rachel RN, Lulú Unavailable Paul RN, Ilda Unavailable Paul RN, Ilda Unavailable Rachel RN, Lulú Unavailable [phone] Lynne Maynard RN Unavailable Unavailable Dr. [...] Provider Dr. Jorgito Agarwal Other Provider Sharon DATABASE ADMIN, DATABASE ADMIN-C Rosalina Other Provider Dr. Jasmyn Chan Referring Provider Dr. Alisa Mathew Referring Provider Dr. Claudine Durán Referring Provider Dr. Claudine Durán Primary Care Provider Dr. Martín Cornejo Emergency Provider [phone] Dr. Laine Veras Admit Provider Dr. Laine [...] Provider Dr. Jorgito Agarwal Other Provider Sharon DATABASE ADMIN, DATABASE ADMIN-C Rosalina Other Provider Dr. Edinson Irvin Chi [...] Provider Dr. Jorgito Agarwal Other Provider Sharon DATABASE ADMIN, DATABASE ADMIN-C Rosalina Other Provider Dr. Edinson Irvin Chi Referring Provider Claudine Durán MD Primary Care Provider Juraez DATABASE ADMIN, DATABASE ADMIN-C Fadia Attending Provider Dr. Zaynab Pina Attending Provider CLAUDINE DURÁN Primary Care Unavailable WILLIAM MESSINA Attending Unavailab david Ramos RN, Lulú Coyne Unavailable CLAUDINE DURÁN Primary Care Unavailable MICHAEL LUJAN Admitting Unavailable SHARAN RIVAS Attending Unavailable GENO CAMACHO Consulting Unavailable Swanson PRINTED CIRCUIT BOARDS STRIPPER ETCHER.MUNICIPAL COURT MAGISTRATE, Jimbo Unavailable Mason PRINTED CIRCUIT BOARDS STRIPPER ETCHER.DIE PRESSER, Twyla Unavailable Tito MC, Bartolome Unavailable Christophe MC, Juvencio Unavailable Eli RN, Pili Unavailable Unavailable Mason PRINTED CIRCUIT BOARDS STRIPPER ETCHER.DIE PRESSER, Twyla Jannet Unavailable Mason PRINTED CIRCUIT BOARDS STRIPPER ETCHER.DIE PRESSER, Twyla Unavailable Eli RN, Pili Unavailable Unavailable Mason PRINTED CIRCUIT BOARDS STRIPPER ETCHER.DIE PRESSER, Twyla Unavailable Mason PRINTED CIRCUIT BOARDS STRIPPER ETCHER.DIE PRESSER, Twyla Unavailable Dr. Claudine Durán MD Primary Care Provider [phone] JUVENCIO SAEED Attending Provider [phone] JUVENCIO SAEED Referring Provider Dr. Claudine Durán MD Referring Provider Dr. Diaz Puckett MD Attending Provider Swanson PRINTED [employer]AR[employer] STRIPPER ETCHER.MUNICIPAL COURT MAGISTRATE, Jimbo Unavailable Loida MC, Dr. Velasquez Emergency Provider Harsh MC, Dr. Zimmerman Admit Provider [phone] Harsh MC, Dr. Zimmerman Attending Provider Vasiliy MC, Dr. Sumner Other Provider Harsh MC, Dr. Zimmerman Other Provider Dr. Jasmyn Chan DO Attending Provider Harsh MC, Dr. Zimmerman Attending Provider Dustin GAYLE, Dr. Rodriguez Other Provider Zaynab Pina MD Attending Provider Louisa Durán MD, Dr. Claudine Castañeda Primary Care Provider [phone] JUVENCIO SAEED Attending Provider JUVENCIO SAEED Referring Provider Yovani MC, Dr. Worthy Attending Provider Zaynab Pina MD Referring Provider Louisa Pizarro DATABASE ADMIN-CFadia Attending Provider Pasha MC, Dr. Claudine Castañeda Primary Care Provider [phone] JUVENCIO SAEED Attending Provider [phone] JUVENCIO SAEED Referring Provider Loida MC, Dr. Velasquez Emergency Provider Harsh MC, Dr. Zimmerman Admit Provider Harsh MC, Dr. Zimmerman Other Provider Vasiliy MC, Dr. Sumner Other Provider [phone] Dustin GAYLE, Dr. Rodriguez Attending Provider Harsh MC, Dr. Zimmerman Attending Provider Dustin GAYLE, Dr. Rodriguez Other Provider Zaynab Pina MD Attending Provider Unavaildenise Pizarro DATABASE ADMIN-CFadia Attending Provider Yovani MC, Dr. Worthy Attending Provider Zaynab Pina MD Referring Provider Unavaildenise Hilario MD, Dr. Rey Emergency Provider Unavailab le ISISAMPLAYNE, CLAUDINE Adam Primary Care Unavailable BIBI ALEGRIA Referring Unavailable TALAMPCLAUDINE TILLMAN Primary Care Unavailable TALAMPCLAUDINE TILLMAN Primary Care Unavailable GENO HART Referring Unavailable ISISAMPAS, CLAUDINE D Primary Care Unavailable TALAMPAS, CLAUDINE [...] lable TALAMPAS, CLAUDINE D Primary Care Unavailable SELF [...] Care Unavailable KALAHASTI, VIDYASAGAR Attending Unavailabl e SWANSON, JIMBO Referring Unavailable TALAMPAS, CLAUDINE D [...] CLAUDINE D Primary Care Unavailable HELD, LEANDRA Referring Unavailable TALAMPAS, CLAUDINE D Primary Care Unavailable HELD, LEANDRA Referring Unavailable TALAMPAS, CLAUDINE D Primary Care Unavailable HELD, LEANDRA Referring Unavailable TALAMPAS, CLAUDINE D Primary Care Unavailable TALAMPAS, CLAUDINE D Primary Care Unavailable TALAMPAS, CLAUDINE D Primary Care Unavailable TALAMPAS, CLAUDINE D Primary Care Unavailable NYASIA WICK Attending Unavailable NYASIA WICK Referring Unavailable TALAMPAS, CLAUDINE D Primary Care Unavailable TALAMPAS, CLAUDINE D Primary Care Unavailable JIMBO SWANSON Attending Unavailable TALAMPAS, CLAUDINE D Primary Care Unavailable TALAMPAS, CLAUDINE D Primary Care Unavailable TALAMPAS, CLAUDINE D Attending Unavailable TALAMPAS, CLAUDINE D Primary Care Unavailable TRENT-PALSHOOK, MONICA Referring Unavai lable TALAMPAS, CLAUDINE D Primary Care Unavailable TRENT-PALSHOOK, MONICA Referring Unavai lable TALAMPAS, CLAUDINE D Primary Care Unavailable GENO HART Attending Unavailable GENO HART Referring Unavailable TALAMPAS, CLAUDINE D Primary Care Unavailable HELD, LEANDRA Referring Unavailable TALAMPAS, CLAUDINE D Primary Care Unavailable [facility], LEANDRA Referring Unavailable TALAMPAS, CLAUDINE D Primary Care Unavailable Talampas, Claudine D Primary Care Unavailable MIKE MCCURDY Referring Unavailable MIKE MCCURDY Attending Unavailable Zaynab Wick Attending Unavailabl e Talampas, Claudine D Primary Care Unavailable Zaynab Wick Attending Unavailabl e Talampas, Claudine D Primary Care Unavailable Zaynab Wick Attending Unavailabl e Talampas, Claudine D Primary Care Unavailable Zaynab Wick Attending Unavailabl e Talampas, Claudine D Primary [...] Unavailable Talampas, Claudine D Primary Care Unavailable KAZ, MIKE Referring Unavailable KAZ, MIKE Attending Unavailable Talampas, Claudine D Primary Care Unavailable KAZ, MIKE Referring Unavailable KAZ, MIKE Attending Unavailable Talampas, Claudine D Primary Care Unavailable KAZ, MIKE Referring Unavailable KAZ, MIKE Attending Unavailable Talampas, Claudine D Primary Care Unavailable KAZ, MIKE Attending Unavailable KAZ, MIKE Referring Unavailable Oleghe OLS, Efewongbe Attending Unavailabl e Talampas, Claudine D Primary Care Unavailable Talampas, Claudine D Primary Care Unavailable KAZ, MIKE Referring Unavailable KAZ, MIKE Attending Unavailable Oleghe OLS, Efewongbe Attending Unavailabl e Talampas, Claudine D Primary Care Unavailable Burak Amanda Consulting Unavailable Jasmyn Chan Attending Unavailable [facility], [facility] Admitting Unavailable Talampas, Claudine D Primary Care Unavailable [facility], [facility] Consulting Unavailable Jasmyn Cahn Consulting Unavailable Talampas, Claudine D Primary Care Unavailable Krissy Hilario Attending Unavailable Oleghe OLS, Efewongbe Attending Unavailabl e Talampas, Claudine D Primary Care Unavailable Oleghe OLS, Efewongbe Attending Unavailabl e Talampas, Claudine D Primary Care Unavailable Burak Amanda Consulting Unavailable Talampas, Claudine D Primary Care Unavailable Jasmyn Chan Attending Unavailable [facility], [facility] Admitting Unavailable [facility], [facility] Consulting Unavailable Oleghe OLS, Efewongbe Referring Unavailabl e Oleghe OLS, Efewongbe Attending Unavailabl e Talampas, Claudine D Primary Care Unavailable Talampas, Cluadine D Primary Care Unavailable Oleghe, Efewongbe Attending Unavailable Oleghe OLS, Efewongbe Attending Unavailabl e Talampas, Claudine D Primary Care Unavailable Fadia Pizarro NP Attending Unavailable Talampas, Claudine D Primary Care Unavailable Talampas, Claudine D Referring Unavailable Talampas, Claudine D Primary Care Unavailable Diaz Puckett Attending Unavailable Talampas, Claudine D Primary Care Unavailable Zaynab Pina Attending Unavailable Fadia Pizarro NP Attending Unavailable Talampas, Claudine D Primary Care Unavailable [facility] Attending Unavailable Zaynab Wick Attending Unavailabl e Joselyne TAMANNA, Efewongbe Referring Unavailabl e Talampas, Claudine D Primary Care Unavailable Allergies Allergy Classification Reported Allergen(s) Allergy Type Date of Onset Reaction(s) Facility Penicillins (antibiotic) (5 sources) Penicillins Drug Allergy 5 [facility] (20 sources) Penicillins; Translations: [PENICILLINS] Propensity to adverse reactions (disorder) 5 [facility] Medications Current Medications Medication Drug Class(es) Dates Sig (Normalized) Sig (Original) acetaminophen 500 mg oral tablet (20 sources) Start: 04-27-2023 acetaminophen (TYLENOL) 500 mg tablet three times a day. 04/27/2023 Active Start: 04-27-2023 End: 06-20-2024 Start: 04-27-2023 End: 06-20-2024 take 2 tablets by mouth every six hours as needed for pain Acetaminophen 500 mg Tablet Discontinued 1000 mg PO EVERY 6 HOURS NEEDED as needed for Pain Score 1-10 0 0 April 27, 2023 1:00am June 20, 2024 10:24am Start: 04-27-2023 Start: 04-05-2023 End: 04-27-2023 Start: 04-05-2023 End: 04-27-2023 acetaminophen 325 mg [...] 7 days. 7 tablet 10/11/2023 10/18/2023 Active [id number] 200 actuat albuter ol 0.09 mg/actuat metered dose inhaler (20 sources) beta2-Adrenergic Agonist Start: 06-13-2024 Start: 06-13-2024 Albuterol Sulf ate 90 mcg/actuation HFA aerosol inhaler Active 2 NMA INHALATION EVERY 4 HOURS NEEDED as needed for shortness of breath or wheezing June 13, 2024 12:00am Start: 04-05-2023 End: 08-13-2023 Start: 04-05-2023 End: 08-13-2023 take 2.5 mg by inhalation every two hours as needed for wheezing Albuterol Sulfate 2.5 mg /3 mL (0.083 %) Solution For Nebulization Discontinued 2.5 mg INHALATION EVERY 2 HOURS NEEDED as needed for SOB/Wheezing 0 0 April 05, 2023 1:00am August 13, 2023 10:47am Start: 03-19-2023 End: 04-27-2023 Start: 03-19-2023 End: 04-27-2023 Albuterol Sulfate 90 [...] tablet (20 sources) Vitamin C Start: 03-19-2023 Start: 03-19-2023 Vitamins A,C,E -Zinc-Copper (Preservision Areds) 2,148 mcg-113 mg-45 mg-17.4mg tablet Active 2 {tbl} PO TWICE A DAY March 19, 2023 1:00am eye health administer with AM and PM meals Start: 03-19-2023 Start: 03-13-2022 take 2 tablets by mo uth once daily at breakfast vit A,C,A-Svrg-Fbrllt (OCUVITE PRESERVISION) 2,148 mcg-113 mg-45 mg-17.4mg tab Take 2 tablets by mouth daily with breakfast. 03/13/2022 Active Comment on above: Take 2 tablets by mo uth daily with breakfast. cholecalciferol 0.025 mg ora l capsule (20 sources) Vitamin D Start: 06-13-2024 Start: 03-26-2023 End: 08-13-2023 Start: 01-24-2011 take 1 capsule by mouth once d aily Cholecalciferol, Vitamin D3, 1,000 unit ORAL Cap Take 1 capsule by mouth once daily. 1 capsule 0 01/24/2011 Active Comment on above: Take 1 capsule by mo uth once daily. clindamycin 300 mg oral capsule (13 sources) Lincosamide Antibacterial Start: 06-20-2024 clindamycin (CLEOCIN) 300 mg capsule one time only. 06/20/2024 Active Start: 06-20-2024 Start: 05-03-2024 End: 05-08-2024 take 1 capsule by mouth every eight hours clindamycin (CLEOCIN) 300 mg capsule Take 1 capsule by mouth every 8 hours for 15 doses. 15 capsule 05/03/2024 05/08/2024 Active diclofenac sodium 0.01 mg/mg topical gel (20 sources) Nonsteroidal Anti-inflammatory Drug Start: 08-18-2023 apply 2 g topically four times daily [...] 10 days. Take 1 tablet by slime two times a day for 10 days. ferrous sulfate 325 mg oral tablet (8 sources) Start: ferrous sulfate 325 mg (65 mg iron) tablet once daily. 06/20/2024 Active fluticasone propionate 0.05 mg/actuat metered dose nasal spray (20 sources) Corticosteroid Start: 5 take 1 spray(s) nasal route once daily fluticasone (FLONASE) 50 mcg/actuation nasal spray Use 1 spray in each nostril once daily. 3 each 3 06/23/2024 Active Start: 04-05-2023 End: 04-27-2023 Start: 04-05-2023 End: 04-27-2023 Fluticasone Propionate 50 mcg/actuation [place],Suspension Discontinued 1 NMA NASAL DAILY 0 0 April 05, 2023 1:00am April 27, 2023 2:17pm Start: 03-19-2023 End: 08-13-2023 Start: 03-19-2023 End: 08-13-2023 Fluticasone Propionate 50 mcg/actuation spray,suspension Active 1 NMA INTRANASAL DAILY August 13, 2023 12:00am Start: 03-19-2023 End: 04-27-2023 Fluticasone Propionate Disco ntinued 1 SPRAY NASAL DAILY 0 April 05, 2023 1:00am April 27, 2023 2:17pm Start: 03-19-2023 Fluticasone Pr opionate Active 2 SPRAY INTRANASAL Q12H March 19, 2023 12:00am Start: 07-14-2020 End: 06-20-2024 take 1 spray(s) nasal route once daily fluticasone (FLONASE) 50 mcg/actuation nasal spray Use 1 [place] in each nostril once daily. 3 Each 3 07/20/2022 06/20/2024 Discontinued Comment on above: Use 1 [place] in each nostril once daily. Fluticasone Propion-Salmeter ol (20 sources) Corticosteroid, beta2-Adrenergic Agonist Start: 06-13-2024 Start: 06-13-2024 Fluticasone Pr opion-Salmeterol (Wixela Inhub) 250-50 mcg/dose blister with device Active 1 NMA INHALATION TWICE A DAY June 13, 2024 12:00am Start: 05-20-2024 take 1 puff(s) by in halation twice daily fluticasone-salmeterol (WIXELA INHUB) 250-50 mcg/dose inhaler Inhale 1 Puff as instructed two times a day. 3 Each 3 05/20/2024 Active Start: 08-13-2023 End: 06-20-2024 Start: 08-13-2023 End: 06-20-2024 Fluticasone Propion-Salmeter ol [...] mg oral tablet (20 sources) Start: 08-23-2024 Start: 06-13-2024 Start: 01-24-2007 End: 11-10-2021 FOLIC ACID 1 MG TAB Take 2 t ablets once daily 60 12 01/24/2007 11/10/2021 Discontinued FOLIC ACID ORAL Take by mouth. Suspended FOLIC ACID ORAL Take by mouth. Active FOLIC ACID ORAL Take by mouth. 0 Suspended FOLIC ACID ORAL Take by mouth. 0 Active Comment on above: Take 2 tablets once daily Take by mouth. furosemide 20 mg oral tablet (20 sources) Loop Diuretic Start: 08-13-2023 End: 03-21-2024 Start: 08-08-2023 End: 08-22-2023 take 1 tablet by mouth once daily as needed for edema Furosemide 20 mg tablet Active 20 mg PO DAILY as needed for edema August 13, 2023 12:00am Start: 03-28-2023 End: 04-05-2023 Start: 03-28-2023 End: 04-05-2023 take 1 tablet by mouth once daily Furosemide (Lasix) 20 mg tablet Discontinued 20 mg PO DAILY 14 14 0 March 28, 2023 1:00am April 05, 2023 12:32pm gabapentin 300 mg oral capsu le (20 sources) Anti-epileptic Agent Start: 08-27-2024 Start: 03-19-2023 End: 04-05-2023 Start: 11-09-2020 End: 07-08-2025 take 1 capsule by mouth twice daily gabapentin (NEURONTIN) 300 mg capsule Indications: Rheumatoid arthritis involving multiple sites with positive rheumatoid factor (HCC) , Low back pain with right-sided sciatica, unspecified back pain laterality, unspecified chronicity Take 1 capsule by mouth two times a day. 180 capsule 3 07/08/2024 07/08/2025 Active Comment on above: Take 1 capsule by mo uth twice daily. Take 1 capsule by mo uth two times a day. iv contrast (will [...] Inhibitor Start: take 4 tablets by mouth once methotrexate 2.5 mg tablet Take 4 tablets by mouth every Sunday. 60 tablet 3 10/25/2024 Active Start: 06-13-2024 Start: 03-19-2023 End: 10-24-2024 Start: 03-19-2023 End: 03-31-2023 take 2 tablets [...] Start: 07-26-2013 take 2 tablets by mo [facility] once in the evening methotrexate 2.5 [...] tablets in pm 24 hr metoprolol succinate 2 5 mg extended release oral tablet (20 sources) beta-Adrenergic Pietro Start: 07-18-2024 take 25 mg by mouth once daily [...] Take 1 tablet by slime th twice daily. sulfaSALAzine 500 mg delayed release oral tablet (20 sources) Aminosalicylate Start: 06-13-2024 Start: 02-01-2024 take 2 tablets by mo [...] mg/actuat inhalation spray (20 sources) Anticholinergic Start: 08-13-2023 Start: 08-13-2023 take 2.5 ug by inhal ation once daily Tiotropium Wyalusing (Spiriva Respimat) 2.5 mcg/actuation mist Active 2 [...] 08/31/2023 07/22/2024 Discontinued Start: 03-19-2023 End: 04-27-2023 Start: 03-19-2023 End: 04-27-2023 take 2.5 ug by inhalation every twenty-four hours Tiotropium Wyalusing (Spiriva Respimat) 2.5 mcg/actuation mist Discontinued 2 NMA INHALATION Q24H March 19, 2023 1:00am April 27, 2023 2:17pm Start: 03-19-2023 End: 04-27-2023 Start: 03-19-2023 End: 04-27-2023 take 1 puff(s) by inhalation every twenty-four hours Tiotropium Wyalusing (Spiriva Respimat) 2.5 mcg/actuation mist Discontinued 2 [...] Inhale two puffs once daily. warfarin sodium 5 mg oral tablet (20 sources) Vitamin K Antagonist Start: 08-27-2024 Start: 08-27-2024 take 1 tablet by slime th at dinner Warfarin (Jantoven) 6 mg Tablet Active 6 mg PO WITH DINNER 0 0 August 27, 2024 12:00am Start: 08-23-2024 Start: 08-23-2024 Warfarin 5 mg tablet Active 0 .ROUTE .COMPLEX August 23, 2024 12:00am 6mg orally Sun/Sun/Sun/Sun/sat, 5 mg orally / Start: 12-13-2023 End: 10-24-2024 warfarin (COUMADIN) 1 mg tab let Take 6 mg daily (take 1mg with 5mg pills); adjust dose as indicated by INRs 90 tablet 3 10/24/2024 Active Start: 08-13-2023 End: 08-18-2023 Start: 08-13-2023 End: 08-18-2023 Warfarin (Febtoven) 7.5 mg t ablet Discontinued 7.5 mg PO TH August 13, 2023 12:00am August 18, 2023 12:55pm Start: 04-27-2023 End: 08-13-2023 Start: 04-27-2023 End: 08-13-2023 Start: 04-27-2023 End: 08-13-2023 take 1 tablet by mouth at dinner Warfarin (Febtoven) 1 mg Tablet Discontinued 1 mg PO WITH DINNER 0 0 April 27, 2023 1:00am August 13, 2023 10:50am Start: 04-27-2023 End: 08-13-2023 take 1 tablet by mouth at dinner Warfarin (Febtoven) 6 mg Tablet Discontinued 6 mg PO WITH DINNER 0 0 April 27, 2023 1:00am August 13, 2023 10:50am Start: 04-27-2023 Start: 11-21-2022 End: 10-24-2024 take 1 mg by mouth once daily warfarin (COUMADIN) 5 mg tablet Indications: Chronic anticoagulation Take 1 tablet by mouth once daily. or as directed with 1mg pill prescription based on INRs 90 tablet 3 10/24/2024 Active Start: 07-11-2022 End: 07-10-2023 warfarin (COUMADIN) [...] ON SUNDAY AND SUNDAY (20 sources) Start: 06-20-2024 Start: 10-01-2023 End: 08-27-2024 Start: 04-27-2023 End: 08-13-2023 Start: 04-27-2023 Start: 03-26-2023 End: 04-27-2023 Start: 03-19-2023 Completed/Discontinued Medications Medication Drug Class(es) Dates Sig (Normalized) Sig (Original) 0.4 ml adalimumab 100 mg/ml auto-injector (20 sources) Tumor Necrosis Factor Pietro Start: 03-19-2023 End: 04-05-2023 Start: 03-20-2017 End: 02-29-2024 HUMIRA PEN 40 mg/0.8 mL pnkt Inject 40 mg subcutaneously. Every other week. 03/20/2017 02/29/2024 Discontinued Comment on above: Inject 40 mg subcuta neously. Every other week. albuterol 0.833 mg/ml / ipratropium bromide 0.167 mg/ml inhalation solution (20 sources) Anticholinergic, beta2-Adrenergic Agonist Start: 04-05-2023 End: 08-13-2023 Start: 04-05-2023 End: 08-13-2023 take 1 mL by inhalation every six hours Ipratropium-Albuterol 0.5 mg-3 mg(2.5 mg base)/3 mL Solution [...] Nonsteroidal Anti-inflammatory Drug Start: 06-13-2024 End: 06-20-2024 Start: 05-03-2024 End: 07-22-2024 take 1 tablet by mouth once daily aspirin 81 mg chewable tablet Take 1 tablet by mouth once daily. 81mg baby aspirin till INR is therapeutic 30 tablet 05/03/2024 07/22/2024 Discontinued budesonide 0.25 mg/ml inhala tion suspension (20 sources) Corticosteroid Start: 04-05-2023 End: 08-13-2023 Start: 04-05-2023 End: 08-13-2023 take 0.5 mg by inhalation every twelve hours Budesonide 0.5 mg/2 mL Suspension For Nebulization Discontinued 0.5 mg INHALATION EVERY 12 HOURS 0 0 April 05, 2023 1:00am August 13, 2023 10:46am breathing Budesonide-Formoterol (20 sources) Corticosteroid, beta2-Adrenergic Agonist Start: 03-19-2023 End: 04-27-2023 Budesonide-Formoterol (Symbicort) 160-4.5 mcg/actuation HFA aerosol inhaler [...] structed twice daily. ciprofloxacin 500 mg oral ta blet (20 sources) Quinolone Antimicrobial Start: 03-25-2023 End: 04-05-2023 Comment on above: Take 1 tablet by slime every 12 hours at 6 am and 6 pm for 3 doses. citalopram 10 mg oral tablet (20 sources) Serotonin Reuptake Inhibitor Start: 04-27-2023 End: 08-13-2023 dexamethasone 6 mg oral tabl et (20 sources) Corticosteroid Start: 03-26-2023 End: 04-05-2023 Comment on above: Take 1 tablet by slime th daily with breakfast for 4 doses. dextromethorphan hydrobromid e 2 mg/ml / guaiFENesin 20 mg/ml oral solution (20 sources) Uncompetitive N-hshtkl-G-aspartate Receptor Antagonist, Sigma-1 Agonist Start: 04-27-2023 End: 08-13-2023 Start: 04-27-2023 End: 08-13-2023 take 1 mL by mouth every six hours as needed for cough Dextromethorphan-Guaifenesin 10-100 mg/5 mL Syrup Discontinued 10 mL PO EVERY 6 HOURS NEEDED as needed for COUGH 0 0 April 27, 2023 1:00am August 13, 2023 10:48am Start: 04-27-2023 Start: 04-27-2023 take 1 mL by mouth every six hours as needed Dextromethorphan-Guaifenesin Active 10 M L PO EVERY 6 HOURS NEEDED 0 April 27, 2023 1:00am docusate sodium 50 mg / anson osides, detention 8.6 mg oral tablet (20 sources) Start: 04-05-2023 End: 04-27-2023 Start: 04-05-2023 End: 04-27-2023 Sennosides-Docusate Sodium ( [...] ea once daily. to L fifth toe hydroCHLOROthiazide 12.5 mg / irbesartan 150 mg oral tablet (20 sources) Thiazide Diuretic, Angiotensin 2 Receptor Pietro Start: 03-19-2023 End: 04-05-2023 Start: 03-19-2023 End: 04-05-2023 Start: 03-19-2023 End: 04-05-2023 take 1 tablet by mouth once daily Irbesartan-Hydrochlorothiazide Discontinued 1 TABLET PO DAILY March 19, 2023 [...] oral solution (20 sources) Azole Antifungal Start: 08-13-2023 End: 06-13-2024 Start: 04-05-2023 End: 12-17-2024 Start: 04-05-2023 End: 08-13-2023 take 1 capsule by mouth twice daily at mealtime Itraconazole 100 mg Capsule Discontinued 200 mg PO TWICE DAILY WITH MEALS 0 0 April 05, 2023 1:00am August 13, 2023 10:52am histoplasmosis Start: 04-05-2023 Start: 03-26-2023 End: 04-27-2023 Start: 03-26-2023 End: 04-27-2023 take 10 mg by mouth every eight hours Start: 03-26-2023 End: 04-27-2023 Start: 03-26-2023 take 200 mg by mouth twice daily Itraconazole Active 200 MG PO TWICE A DAY March 26, 2023 12:00am administer on an empty stomach Start: 03-25-2023 End: 06-13-2024 take 20 mL by mouth twice daily itraconazole (SPORANOX ) 10 mg/mL solution Indications: histoplasmosis Take 20 mL by mouth two times a day. 1200 mL 02/21/2024 04/30/2024 Discontinued (Course of therapy completed) Start: 03-19-2023 End: 03-31-2023 Start: 03-19-2023 End: 03-31-2023 take 1 capsule by mouth every eight hours Itraconazole 100 mg capsule Discontinued 100 mg PO Q8H March 19, 2023 1:00am March 31, 2023 9:21pm Start: 03-14-2023 itraconazole ( SPORANOX) 100 mg capsule Indications: Disseminated histoplasmosis Take 2 capsules by mouth as directed. Take 200 mg (2 capsules) three times daily for 3 days, then twice daily. 138 capsule 2 03/14/2023 Suspended Comment on above: Take 2 capsules by m [facility] as directed. Take 200 mg (2 capsules) three times daily for 3 days, then twice daily. Take 20 mL by mouth two times a day. leucovorin 5 mg oral tablet (20 sources) Folate Analog Start: 03-19-2023 End: 03-31-2023 Start: 03-19-2023 End: 03-31-2023 End: 05-05-2024 take 1 tablet by mouth once daily leucovorin (LEUCOVORIN) 15 mg tablet Take 15 mg by mouth once daily. 05/05/2024 Discontinued Comment on above: Take 15 mg by mouth once daily. loperamide hydrochloride 2 mg oral capsule (20 sources) Opioid Agonist Start: 03-25-2023 End: 04-30-2024 Comment on above: Take 1 capsule by mo [facility] three times a day as needed [...] 27, 2023 1:00am metroNIDAZOLE 500 mg oral ta blet (20 sources) Nitroimidazole Antimicrobial Start: 03-26-2023 End: 04-05-2023 Start: 03-25-2023 End: 03-27-2023 take 1 tablet [...] tablet (20 sources) Nonsteroidal Anti-inflammatory Drug Start: 08-13-2023 End: 08-18-2023 Start: 03-19-2023 End: 04-05-2023 Start: 10-09-2022 End: 10-11-2023 take 1 tablet [...] Comment on above: Take 1 tablet by silme th twice daily as needed. Take with food [place] 8-Vlr-Piy-Fish Oil (Fish Oil) 1,200 (144-216) mg capsule (8 sources) Start: 10-01-2023 End: 08-27-2024 [place] 5-Ojr-Djx-Fish Oil (Fish Oil) 1,200 (144-216) mg capsule Discontinued 1 NMA PO DAILY October 01, 2023 12:00am August 27, 2024 12:00pm Start: 10-01-2023 [place] 3-Dha-Ep a-Fish Oil (Fish Oil) 1,200 (144-216) mg capsule Active 1 NMA PO DAILY October 01, 2023 12:00am oxyCODONE hydrochloride 5 mg oral tablet (20 sources) Opioid Agonist Start: 08-27-2024 End: 09-16-2024 Start: 08-27-2024 End: 09-16-2024 take 2.5 mg by mouth every four hours as needed for pain Oxycodone 5 mg tablet Discontinued 2.5 mg PO EVERY 4 HOURS NEEDED as needed for Pain Score 4-10 30 20 0 August 27, 2024 September 15, 2024 12:00am September 16, 2024 12:07am Closed fracture of distal end of left radius Start: 04-05-2023 End: 04-27-2023 pantoprazole 40 mg delayed r elease oral tablet (20 sources) Proton Pump Inhibitor Start: 08-18-2023 End: 06-20-2024 Start: 03-19-2023 End: 08-13-2023 Start: 07-14-2020 End: 03-21-2024 take 1 tablet by mouth once daily Pantoprazole 40 mg tablet,delayed release (DR/EC) Discontinued 40 mg PO DAILY March 19, 2023 1:00am April 05, 2023 12:29pm Comment on above: Take 1 tablet by slime th once daily. predniSONE 20 mg oral tablet (20 sources) Start: 08-13-2023 End: 08-18-2023 Start: 08-08-2023 End: 02-29-2024 predniSONE (DELTASONE) 20 [...] 9 mg/ml prefilled syringe (20 sources) Start: 02-22-2021 End: 11-25-2024 sodium chloride 0.9 % (flush) 10 mL (BD POSIFLUSH) spironolactone 25 mg oral tablet (20 sources) Aldosterone Antagonist Start: 09-05-2023 End: 08-23-2024 sucralfate 1000 mg oral tablet (11 sources) Aluminum Complex Start: 08-18-2023 End: 10-01-2023 Vitamin A-Vitamin C-Vit E-Min (Ocutabs) tablet (16 sources) Start: 03-26-2023 End: 04-27-2023 Vitamin A-Vitamin C-Vit E-Min (Ocutabs) tablet Discontinued [...] hemorrhage] Onset: 5 Chronic Acute posthemorrhagic anemia (11 sources) Acute posthemorrhagic anemia; Translations: [Acute posthemorrhagic [...] physical debility; Translations: [Age-related physical debility] Onset: Chronic Diseases of white blood cells (1 source) Leukocytosis; Translations: [Elevated white blood cell count, unspecified] 04-01-2023 Chronic Disorders of lipid metabolism (1 source) Raised low density lipoprotein cholesterol; Translations: [Pure hypercholesterolemia, unspecified] Chronic E Codes: Fall (11 sources) Fall on same level from slipping, [...] Onset: 5 Episodic Fracture of upper limb (20 sources) Closed fracture of distal end of [...] ulcer with hemorrhage] 07-17-2023 Chronic Gastrointestinal hemorrhage (12 sources) Gastrointestinal hemorrhage; Translations: [Gastrointestinal hemorrhage, unspecified] 10-11-2023 Episodic Gout and other crystal arthropathies (3 sources) Calcium pyrophosphate deposition disease; Translations: [Other chondrocalcinosis, unspecified site] Chronic Heart valve disorders (20 sources) Non-rheumatic mitral valve stenosis; Translations: [Nonrheumatic mitral (valve) stenosis] Onset: 4 08-27-2023 Chronic Immunizations and screening for infectious disease (1 source) Vaccination needed; Translations: [Encounter for immunization] Episodic Intracranial injury (2 sources) Concussion without loss of consciousness, sequela; Translations: [Concussion without loss of consciousness, subsequent encounter] Onset: 5 Episodic Malaise and fatigue (20 sources) Asthenia; Translations: [Weakness] Onset: 5 03-26-2023 Episodic Menopausal disorders (20 sources) Atrophic vaginitis; Translations: [Postmenopausal atrophic vaginitis] Onset: 4 03-06-2013 Chronic Noninfectious gastroenteritis (20 sources) Colitis; Translations: [Noninfective gastroenteritis and colitis, unspecified] 03-19-2023 Episodic Open wounds of extremities (6 sources) Tear of skin; Translations: [Laceration without foreign body of unspecified elbow, initial encounter] Onset: 5 10-19-2024 Episodic Osteoporosis (1 source) Senile osteoporosis; 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 without current pathological fracture] 11-09-2022 Chronic Other aftercare (20 sources) Long-term current use of anticoagulant; Translations: [manager long term care (current) use of 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] Onset: 0 12-10-2014 Episodic Other aftercare (2 sources) manager long term care (current) use of 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; Translations: [correction current use of anticoagulant therapy] Onset: 5 Episodic Other aftercare (1 source) Long-term current use of drug therapy; Translations: [Other extermination supervisor (current) drug therapy] 08-22-2023 Episodic Other aftercare (2 sources) Long-term current use of antibiotic; Translations: [correction (current) use of antibiotics] 12-18-2023 Episodic Other connective tissue disease (1 source) Pain of right lower leg; Translations: [Pain in right lower leg] 07-10-2023 Episodic Other gastrointestinal disorders (20 sources) Perforation of intestine; Translations: [Perforation of intestine (nontraumatic)] 03-19-2023 Episodic Other gastrointestinal disorders (2 sources) History of gastrointestinal bleed; Translations: [Personal history of other diseases of the digestive system] 08-28-2023 Episodic Other infections; including parasitic (1 source) Personal history of other infectious and parasitic diseases; Translations: [History of COVID-19] Episodic Other injuries and conditions due to external causes (16 sources) Closed injury of head; Translations: [Unspecified [...] of the respiratory system] 03-28-2023 Episodic Other nervous system disorders (20 sources) Meralgia paresthetica; Translations: [Meralgia paresthetica, unspecified lower limb] Onset: 6 03-06-2005 Chronic Other non-traumatic joint disorders (20 sources) Arthropathy; Translations: [Arthropathy, unspecified] Onset: 7 12-05-2006 Chronic Other non-traumatic joint disorders (2 sources) Effusion, right wrist; Translations: [Effusion, right wrist] Onset: Episodic Other non-traumatic joint disorders (3 sources) [...] Episodic Other nutritional; endocrine; and metabolic disorders (11 sources) Failure to thrive 05-08-2023 Episodic Other [...] (3 sources) Localized edema; Translations: [Edema] Onset: 03-31-2023 Episodic Residual codes; unclassified (20 sources) [...] Onset: 2 03-20-2011 Chronic Superficial injury; contusion (12 sources) Abrasion of face; Translations: [Abrasion of other part of head, initial encounter] Onset: 5 08-23-2024 Episodic Unclassified (20 sources) High Risk [...] 8 07-30-2017 Episodic Other aftercare (1 source) manager long term care (current) use of antibiotics; Translations: [Encounter for [...] [Bowel perforation (HCC)] Onset: 4 Episodic Other gastrointestinal disorders (1 source) Personal history of other diseases of the digestive system; Translations: [History of GI bleed] Onset: 5 Episodic Other liver diseases (20 sources) Elevated liver enzymes level; Translations: [Abnormal levels of other serum enzymes] Onset: 0 04-01-2009 Episodic Other lower respiratory disease (20 sources) Nodule of lung; Translations: [Solitary pulmonary nodule] Onset: 0 03-11-2019 Episodic Other lower respiratory disease (20 sources) Hemoptysis; Translations: [Hemoptysis] Onset: 4 03-23-2023 Episodic Other lower respiratory disease (1 source) Personal history of other diseases of the respiratory system; Translations: [History of COPD] Onset: 5 Episodic Other non-traumatic joint disorders (20 sources) [...] Test Name Value Interpretation Reference Range Facility Brain/Head without Contrasto n 10-19-2024 Brain/Head without Contrast [facility] Imaging Services [address] [place] [address] Brain/Head without Contrast MR#: [id number] Acct: [id number] Name: HAYDEE BUSTAMANTE Rep #: [id number] : 1945 F 79 From: Lo hess MD PCP: Dr. Claudine Durán MD Status: [facility] ER Study: Brain/Head without Contrast Date of Exam: 09/21 03/15 Exam# [id number] Ordering Dr: Krissy Hilario MD PROCEDURE: BRAIN/HEAD WITHOUT CONTRAST 10/19/2024 REASON FOR EXAM: FALL, ON OAC TECHNIQUE: Procedure Code: CTBR Modality: CT Procedure: BRAIN/HEAD WITHOUT CONTRAST Coronal and Sagittal reconstruction series were provided. One or more dose reduction techniques were used (e.g., Automated exposure control, adjustment of the mA and/or kV according to patient size, use of iterative reconstruction technique. RADIATION DOSE SUMMARY: CTDlvol: 12.88 mGy DLP: 1019 mGycm COMPARISON: 08/23/2024. FINDINGS: Mild diffuse cortical atrophy, commensurate with the patient's age. Scattered hypodense foci in the periventricular and subcortical white matter suggestive of chronic ischemic white matter disease. Normal size of the ventricles and extra-axial spaces for the patient's age. Normal basal ganglia and thalami. Normal brainstem. Normal cerebellum. There is no demonstrated extra-axial, intraparenchymal, or intraventricular hemorrhage. There are no findings of an acute ischemic infarction. Normal calvarium. There is no demonstrated fracture. Normal soft tissue structures. Normal visualized paranasal sinuses. CT/Brain/Head without Contrast IMPRESSION: No CT evidence for acute brain abnormality. [facility] CC: Dr. Krissy Hilario MD; Dr. Claudine Durán MD Science Instructor: Signed [facility] Emergency Department Summary on 10-19-2024 Emergency Department Summary [facility] Medical Records Department [address] [place] [address] Emergency Department Summary 10/19/24 MR#: [id number] Acct: [id number] Name: HAYDEE BUSTAMANTE Rep #: [id number] : 1945 79 From: Krissy Hilario MD PCP: Dr. Claudine Durán MD Status:REG ER Location: ED HPI HPI - Fall History of Present Illness Chief Complaint: Fall Narrative Narrative: Patient is a 79-year-old female presenting to the emergency department after a fall. Patient has past medical history as below including DVT on warfarin. Patient states that she lives at home and was using her walker as she normally does when she bent down to order picker a blanket that was on the floor and she lost her balance causing her to fall backwards striking the back of her head. She denies losing consciousness. Denies any neck or back pain. She is currently being treated for shingles on her right flank. States she was able to get up on her own. She then called 911 because she was told if she ever falls and hits her head she is supposed to. She denies any chest pain, shortness of breath, palpitations, lightheadedness or dizziness. Denies any pain in her hips or legs. She reports she does have a wound from the fall to her left elbow. Tetanus vaccine has been given in the last 5 years she reports. [facility] Medical History Declining functional status Closed head injury without concussion Closed fracture of distal end of left radius Hypertension GERD (gastroesophageal reflux disease) Pericardial effusion [...] DAILY supplement 4 10/01/23 History tablet) vitamins A,C,K-jnej-uijbya 2,148 2 tab PO BID eye health [...] 10/02/23 Rx (Voltaren Arthritis Pain) #100 grams albuterol sulfate 90 mcg/actuation 2 puff inhalation [...] Instructions .Route .COMPLE X 08/23/24 Unknown History gabapentin 300 mg capsule 300 mg PO BID #0 caps 08/27/24 Unk nown Rx warfarin 6 mg tablet (Jantoven) 6 mg PO DINNER #0 tabs 08/27/24 Un known Rx Allergy/AdvReac Type Severity Reaction Status Date / Time Penicillins Allergy Severe Anaphylaxis Verified 10/19/24 00:41 Surgical History History of transcatheter aortic valve replacement (TAVR) History of back surgery H (more content not included)... [facility] Prothrombin Time w/INRon INR Coag (PPP) [Relative time] 2.2 {INR} [facility] Comment on above: Performed By: #### L 500.2500, L100.0100 #### [facility] [address] [place], [place], [id number] PT Coag (PPP) [Time] 25.2 s High 11.7-14.9 [facility] Comment on above: Performed By: #### L 500.2500, L100.0100 #### [facility] [address] [place], [address] Prothrombin timeOrdered By: Krissy Hilario on 10-19-2024 PT Coag (PPP) [Time] 25.2 s High 11.7-14.9 [facility] Spine Cervical without Contr ason 10-19-2024 Spine Cervical without Contras [facility] [address] [facility] [place] [id number] Spine Cervical without Contras MR#: [id number] Acct: [id number] Name: HAYDEE BUSTAMANTE Rep #: [id number] : 1945 F 79 From: Lo hess MD PCP: Dr. Claudine Durán MD Status: REG ER Study: Spine Cervical without Contras Date of Exam: 0 10/19/24 Exam# [id number] Ordering Dr: Krissy Hilario MD PROCEDURE: SPINE CERVICAL WITHOUT CONTRAS 10/19/2024 REASON FOR EXAM: FALL TECHNIQUE: Procedure Code: CTSPC Modality: CT Procedure: SPINE CERVICAL WITHOUT CONTRAS Coronal and Sagittal reconstruction series were provided. One or more dose reduction techniques were used (e.g., Automated exposure control, adjustment of the mA and/or kV according to patient size, use of iterative reconstruction technique. RADIATION DOSE SUMMARY: CTDI Vol 61.79 mGy DLP :1267.7 mGycm COMPARISON: none FINDINGS: Straightened cervical lordosis denoting myospasm. Mild C4 and C7 anterolithesis. C3 and C4 bony fusion noted. The examined vertebral bodies show no structural collapse or posterior neural elements fractures. Intact atlanto-axial interval. Degenerative changes of the atlanto-odontoid articulation with related capsular calcifications. Cervical spondylodegenerative changes evident by marginal osteophytic lipping and multilevel subchondral sclerosis of the examined vertebral end plates with multilevel disc spaces narrowing with vacuum phenomenon. Multilevel degenerative unco-vertebral arthropathy with osteophytes formation seen encroaching upon the corresponding neural exit foramina. Multilevel degenerative facet arthropathy. Multilevel diffuse disc bulges with posterior osteophytes and annular calcifications indenting the theca and encroaching upon the related neural exit foramina. No paraspinal masses. Carotid atheromatous calcifications. Bilateral upper lung lobes apical reticulations. CT/Spine Cervical without Contras IMPRESSION: Straightened cervical curve denoting myospasm. No acute vertebral fractures, structural collapse or dislocation. 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 Reading Location: [place] [address] CC: Dr. Krissy Hilario MD; Dr. Claudine Durán MD Science Instructor: Signed [facility] Absolute lymphocyte countOrd ered By: Christineelmertanjoesph Cherrynatimarily on 10-16-2024 Lymphocytes Auto (Unsp spec) [#/Vol] 1.13 10*3/uL 0.83-4.51 [facility] Anion gap in Serum or Plasma Ordered By: Efamilcar Pina on 10-16-2024 Anion gap [Moles/Vol] 11 mmol/L 5-15 [facility] Automated lymphocyte count a s percentage of total leukocytesOrdered By: Efamilcar Cherrynatimarily on 10-16-2024 Lymphocytes/100 WBC Auto (Unsp spec) 18.9 % Low 19-41 [facility] BUN/creatinine ratioOrdered By: Efelmermarydeljoesph Cherrynatie on 10-16-2024 Urea nitrogen/Creatinine [Mass ratio] 23.5 mg/mg High 10-20 [facility] Basophil percentageOrdered B y: Efelmerongbe Dilipnatie on 10-16-2024 Basophils/100 WBC (Bld) 0.5 % 0-1 [facility] Carbon dioxide, total [Moles /volume] in Central venous bloodOrdered By: Zaynab Cherrynatimarily on 10-16-2024 CO2 [Moles/Vol] 21.1 mmol/L 21.0-32.0 [facility] Chloride assayOrdered By: Ef amilcar Pina on 10-16-2024 Chloride [Moles/Vol] 98 mmol/L 98-108 [facility] Eosinophil percentageOrdered By: elmerongbe Dilipnatie on 10-16-2024 Eosinophils/100 WBC (Bld) 1.7 % 0-5 [facility] Erythrocyte distribution wid th ratioOrdered By: Efelmerongbe Dilipnatie on 10-16-2024 Erythrocyte distribution width (RBC) [Ratio] 14.6 % 11.6-14.6 [facility] Erythrocyte distribution wid th standard deviationOrdered By: stevenbe Dilipnatie on 10-16-2024 Erythrocyte distribution width (RBC) [Ratio] 50.8 fl High 35.1-43.9 [facility] Glomerular filtration rate ( GFR) estimation/1.73 sq m using serum, plasma, or whole bOrdered By: Christineelmertanjoesph Cherryjohnny on 10-16-2024 GFR/1.73 sq M.predicted among non-blacks MDRD (S/P/Bld) [Vol rate/Area] 92 mL/min/{1.73_m2} >60 [facility] Hematocrit Auto (Bld) [Volum e fraction]Ordered By: Claudiotanjoesph Cherrynatimarily on 10-16-2024 Hematocrit (Bld) [Volume fraction] 35.7 % Low 37-47 [facility] Hemoglobin measurementOrdere d By: elmershala Dilipnatimarily on 10-16-2024 Hemoglobin (Bld) [Mass/Vol] 12.0 g/dL 12.0-15.0 [facility] Immature granulocytes/100 WB C Auto (Bld)Ordered By: Zaynab Cherrynatimarily 10-16-2024 Immature granulocytes/100 WBC (Bld) 0.800 % 0.0-0.9 [facility] MCV (mean corpuscular volume ) determinationOrdered By: Zaynab Cherrynatimarily on 10-16-2024 MCV (RBC) [Entitic vol] 96.0 fL 81-99 [facility] Mean corpuscular hemoglobin (MCH) determinationOrdered By: amilcar Cherrynatimarily on 10-16-2024 MCH (RBC) [Entitic mass] 32.3 pg High 27.0-32.0 [facility] Monocyte percentageOrdered B y: Christineelmertanjoesph Cherrynatimarily on 10-16-2024 Monocytes/100 WBC (Bld) 12.7 % High 0-10 [facility] Neutrophil percentageOrdered By: elmermarydeljoesph Cherrynatimarily on 10-16-2024 Neutrophils/100 WBC (Bld) 65.4 % 47-70 [facility] Platelet countOrdered By: Chirstine amilcar Dilipnatimarily on 10-16-2024 Platelets (Bld) [#/Vol] 196 10*3/uL 150-450 [facility] Potassium measurement (mass/ volume)Ordered By: Zaynab Cherrynatimarily on 10-16-2024 Potassium (Unsp spec) [Mass/Vol] 4.2 mmol/L 3.3-5.1 [facility] Prothrombin timeOrdered By: Zaynab Pina on 10-16-2024 PT Coag (PPP) [Time] 17.6 s High 11.7-14.9 [facility] RBC Auto (Bld) [#/Vol]Ordere d By: Zaynab Pina on 10-16-2024 RBC (Bld) [#/Vol] 3.72 10*6/uL Low 4.2-5.4 [facility] Serum creatinine measurement (mass/volume)Ordered By: Zaynab Pina on 10-16-2024 Creatinine [Mass/Vol] 0.60 mg/dL Low 0.70-1.20 [facility] Serum glucose measurement (m ass/volume)Ordered By: Zaynab Pina on 10-16-2024 Glucose [Mass/Vol] 83 mg/dL 70-99 [facility] Serum or plasma calcium monica urement (mass/volume)Ordered By: Zaynab Pina on 10-16-2024 Calcium [Mass/Vol] 8.8 mg/dL 7.6-11.0 [facility] Serum or plasma urea nitroge n measurement (mass/volume)Ordered By: Zaynab Pina on 10-16-2024 Urea nitrogen [Mass/Vol] 14 mg/dL 4-19 [facility] Sodium levelOrdered By: Claudio powellhasmukh Yovani on 10-16-2024 Sodium [Moles/Vol] 129 mmol/L Low 133-145 [facility] White blood cell (WBC) count Ordered By: Zaynab Pina on 10-16-2024 WBC (Bld) [#/Vol] 6.0 10*3/uL 4.4-11.0 [facility] International normalized rat io (INR) measurement by fingerstickOrdered By: Zaynab Pina on 10-13-2024 INR Coag (BldC) [Relative time] 2.0 [facility] Whole blood prothrombin time Ordered By: Zaynab Pina on 10-13-2024 PT Coag (Bld) [Time] 22.3 s High 11.7-14.9 [facility] Absolute lymphocyte countOrd ered By: Zaynab Pina on 10-09-2024 Lymphocytes Auto (Unsp spec) [#/Vol] 1.63 10*3/uL 0.83-4.51 [facility] Anion gap in Serum or Plasma Ordered By: Zaynab Pina on 10-09-2024 Anion gap [Moles/Vol] 13 mmol/L 5-15 [facility] Automated lymphocyte count a s percentage of total leukocytesOrdered By: Zaynab Pina on 10-09-2024 Lymphocytes/100 WBC Auto (Unsp spec) 25.3 % 19-41 [facility] BUN/creatinine ratioOrdered By: Zaynab Pina on 10-09-2024 Urea nitrogen/Creatinine [Mass ratio] 23.1 mg/mg High 10-20 [facility] Basophil percentageOrdered B y: Zaynab Pina on 10-09-2024 Basophils/100 WBC (Bld) 0.5 % 0-1 [facility] Carbon dioxide, total [Moles /volume] in Central venous bloodOrdered By: Zaynab Pina on 10-09-2024 CO2 [Moles/Vol] 21.3 mmol/L 21.0-32.0 [facility] Chloride assayOrdered By: Christine Pina on 10-09-2024 Chloride [Moles/Vol] 101 mmol/L 98-108 [facility] Eosinophil percentageOrdered By: Zaynab Pina on 10-09-2024 Eosinophils/100 WBC (Bld) 1.4 % 0-5 [facility] Erythrocyte distribution wid th ratioOrdered By: Zaynab Pina on 10-09-2024 Erythrocyte distribution width (RBC) [Ratio] 14.0 % 11.6-14.6 [facility] Erythrocyte distribution wid th standard deviationOrdered By: Zaynab Pina on 10-09-2024 Erythrocyte distribution width (RBC) [Ratio] 49.2 fl High 35.1-43.9 [facility] Glomerular filtration rate ( GFR) estimation/1.73 sq m using serum, plasma, or whole bOrdered By: Zaynab Pina on 10-09-2024 GFR/1.73 sq M.predicted among non-blacks MDRD (S/P/Bld) [Vol rate/Area] 92 mL/min/{1.73_m2} >60 [facility] Hematocrit Auto (Bld) [Volum e fraction]Ordered By: Zaynab Pina on 10-09-2024 Hematocrit (Bld) [Volume fraction] 33.1 % Low 37-47 [facility] Hemoglobin measurementOrdere d By: Christineelmershala Dilipnatimarily on 10-09-2024 Hemoglobin (Bld) [Mass/Vol] 11.2 g/dL Low 12.0-15.0 [facility] Immature granulocytes/100 WB C Auto (Bld)Ordered By: Zaynab Cherrynatimarily on 10-09-2024 Immature granulocytes/100 WBC (Bld) 0.600 % 0.0-0.9 [facility] MCV (mean corpuscular volume ) determinationOrdered By: Zaynab Pina on 10-09-2024 MCV (RBC) [Entitic vol] 95.9 fL 81-99 [facility] Mean corpuscular hemoglobin (MCH) determinationOrdered By: Christineamilcar Cherrynatimarily on 10-09-2024 MCH (RBC) [Entitic mass] 32.5 pg High 27.0-32.0 [facility] Monocyte percentageOrdered B y: Christineelmertanjoesph Cherrynatimarily on 10-09-2024 Monocytes/100 WBC (Bld) 11.2 % High 0-10 [facility] Neutrophil percentageOrdered By: Christineelmertanjoesph Cherrynatimarily on 10-09-2024 Neutrophils/100 WBC (Bld) 61.0 % 47-70 [facility] Platelet countOrdered By: Christine stevenjoesph Cherrynatimarily on 10-09-2024 Platelets (Bld) [#/Vol] 186 10*3/uL 150-450 [facility] Potassium measurement (mass/ volume)Ordered By: Christineamilcar Cherrynatimarily on 10-09-2024 Potassium (Unsp spec) [Mass/Vol] 3.9 mmol/L 3.3-5.1 [facility] Prothrombin timeOrdered By: Zaynab Cherrynatimarily on 10-09-2024 PT Coag (PPP) [Time] 21.3 s High 11.7-14.9 [facility] RBC Auto (Bld) [#/Vol]Ordere d By: Zaynab Dilipnatimarily on 10-09-2024 RBC (Bld) [#/Vol] 3.45 10*6/uL Low 4.2-5.4 [facility] Serum creatinine measurement (mass/volume)Ordered By: Zaynab Pina on 10-09-2024 Creatinine [Mass/Vol] 0.62 mg/dL Low 0.70-1.20 [facility] Serum glucose measurement (m ass/volume)Ordered By: Zaynab Pina on 10-09-2024 Glucose [Mass/Vol] 68 mg/dL Low 70-99 [facility] Serum or plasma calcium monica urement (mass/volume)Ordered By: Zaynab Pina on 10-09-2024 Calcium [Mass/Vol] 8.8 mg/dL 7.6-11.0 [facility] Serum or plasma urea nitroge n measurement (mass/volume)Ordered By: Zaynab Pina on 10-09-2024 Urea nitrogen [Mass/Vol] 14 mg/dL 4-19 [facility] Sodium levelOrdered By: Claudio collinsmarily Dilipnatimarily on 10-09-2024 Sodium [Moles/Vol] 135 mmol/L 133-145 [facility] White blood cell (WBC) count Ordered By: Zaynab Pina on 10-09-2024 WBC (Bld) [#/Vol] 6.5 10*3/uL 4.4-11.0 [facility] Sodium levelOrdered By: Claudio Cherrynatimarily on 10-07-2024 Sodium [Moles/Vol] 135 mmol/L 133-145 [facility] International normalized rat io (INR) measurement by fingerstickOrdered By: Zaynab Pina on 10-06-2024 INR Coag (BldC) [Relative time] 1.6 [facility] Whole blood prothrombin time Ordered By: Zaynab Pina on 10-06-2024 PT Coag (Bld) [Time] 18.4 s High 11.7-14.9 [facility] Absolute lymphocyte countOrd ered By: Efelmerongbe Dilipnatie on 10-02-2024 Lymphocytes Auto (Unsp spec) [#/Vol] 0.96 10*3/uL 0.83-4.51 [facility] Absolute neutrophil countOrd ered By: Efewongbe Olenatie on 10-02-2024 Neutrophils (Bld) [#/Vol] 3.7 10*3/uL 2.0-7.7 [facility] Anion gap in Serum or Plasma Ordered By: Efewongbe Oleghe on 10-02-2024 Anion gap [Moles/Vol] 12 mmol/L 5-15 [facility] Automated lymphocyte count a s percentage of total leukocytesOrdered By: Efelmerongbe Dilipnatie on 10-02-2024 Lymphocytes/100 WBC Auto (Unsp spec) 17.0 % Low 19-41 [facility] BUN/creatinine ratioOrdered By: Efelmerongbe Dilipnatie on 10-02-2024 Urea nitrogen/Creatinine [Mass ratio] 20.9 mg/mg High 10-20 [facility] Basophil percentageOrdered B y: Efelmerongbe Dilipnatie on 10-02-2024 Basophils/100 WBC (Bld) 0.4 % 0-1 [facility] Carbon dioxide, total [Moles /volume] in Central venous bloodOrdered By: Zaynab Cherryghe on 10-02-2024 CO2 [Moles/Vol] 21.1 mmol/L 21.0-32.0 [facility] Chloride assayOrdered By: Ef elmerongbe Joselyne on 10-02-2024 Chloride [Moles/Vol] 95 mmol/L Low 98-108 [facility] Eosinophil percentageOrdered By: Efelmerongbe Oleghe on 10-02-2024 Eosinophils/100 WBC (Bld) 0.9 % 0-5 [facility] Erythrocyte distribution wid th ratioOrdered By: Efewongbe Oleghe on 10-02-2024 Erythrocyte distribution width (RBC) [Ratio] 13.8 % 11.6-14.6 [facility] Erythrocyte distribution wid th standard deviationOrdered By: Efelmerongbe Oleghe on 10-02-2024 Erythrocyte distribution width (RBC) [Ratio] 48.2 fl High 35.1-43.9 [facility] Glomerular filtration rate ( GFR) estimation/1.73 sq m using serum, plasma, or whole bOrdered By: Zaynab Pina on 10-02-2024 GFR/1.73 sq M.predicted among non-blacks MDRD (S/P/Bld) [Vol rate/Area] 93 mL/min/{1.73_m2} >60 [facility] Comment on above: mL/min/1.73m2 CKD-EP I Creatinine Equation (2020) Hematocrit Auto (Bld) [Volum e fraction]Ordered By: Zaynab Pina on 10-02-2024 Hematocrit (Bld) [Volume fraction] 32.9 % Low 37-47 [facility] Hemoglobin measurementOrdere d By: Zaynab Pina on 10-02-2024 Hemoglobin (Bld) [Mass/Vol] 11.2 g/dL Low 12.0-15.0 [facility] Immature granulocytes/100 WB C Auto (Bld)Ordered By: Zaynab Pina on 10-02-2024 Immature granulocytes/100 WBC (Bld) 0.700 % 0.0-0.9 [facility] Comment on above: IG% - Immature Granu locytes (promyelocytes, myelocytes and metamyelocytes) > 1% indicates that a LEFT SHIFT is Present. MCV (mean corpuscular volume ) determinationOrdered By: Zaynab Pina 10-02-2024 MCV (RBC) [Entitic vol] 95.1 fL 81-99 [facility] Mean corpuscular hemoglobin (MCH) determinationOrdered By: Zaynab Pina on 10-02-2024 MCH (RBC) [Entitic mass] 32.4 pg High 27.0-32.0 [facility] Mean corpuscular hemoglobin concentration (MCHC) determinationOrdered By: Zaynab Pina 10-02-2024 MCHC (RBC) [Mass/Vol] 34.0 g/dL 32-36 [facility] Mean platelet volume determi nationOrdered By: Zaynab Pina 10-02-2024 Platelet mean volume (Bld) [Entitic vol] 10.9 fL 6.2-12.0 [facility] Monocyte percentageOrdered B y: Claudiotanjoesph Cherrynatimarily on 10-02-2024 Monocytes/100 WBC (Bld) 15.2 % High 0-10 [facility] Neutrophil percentageOrdered By: Zanyab Pina on 10-02-2024 Neutrophils/100 WBC (Bld) 65.8 % 47-70 [facility] Nucleated red blood cell per centageOrdered By: Zaynab Pina on 10-02-2024 Nucleated RBC/100 WBC (Bld) [Ratio] 0 % 0-5 [facility] Platelet countOrdered By: Christine elmershala Pina on 10-02-2024 Platelets (Bld) [#/Vol] 160 10*3/uL 150-450 [facility] Potassium measurement (mass/ volume)Ordered By: Zaynab Pina on 10-02-2024 Potassium (Unsp spec) [Mass/Vol] 3.9 mmol/L 3.3-5.1 [facility] Prothrombin timeOrdered By: Zaynab Pina on 10-02-2024 PT Coag (PPP) [Time] 20.9 s High 11.7-14.9 [facility] RBC Auto (Bld) [#/Vol]Ordere d By: Zaynab Pina on 10-02-2024 RBC (Bld) [#/Vol] 3.46 10*6/uL Low 4.2-5.4 [facility] Serum creatinine measurement (mass/volume)Ordered By: Zaynab Pina on 10-02-2024 Creatinine [Mass/Vol] 0.58 mg/dL Low 0.70-1.20 [facility] Serum glucose measurement (m ass/volume)Ordered By: Zaynab Pina on 10-02-2024 Glucose [Mass/Vol] 80 mg/dL 70-99 [facility] Serum or plasma calcium monica urement (mass/volume)Ordered By: Zaynab Pina on 10-02-2024 Calcium [Mass/Vol] 9.0 mg/dL 7.6-11.0 [facility] Serum or plasma urea nitroge n measurement (mass/volume)Ordered By: Zaynab Pina on 10-02-2024 Urea nitrogen [Mass/Vol] 12 mg/dL 4-19 [facility] Sodium levelOrdered By: Claudio shala Yovani on 10-02-2024 Sodium [Moles/Vol] 129 mmol/L Low 133-145 [facility] White blood cell (WBC) count Ordered By: Zaynab Pina on 10-02-2024 WBC (Bld) [#/Vol] 5.6 10*3/uL 4.4-11.0 [facility] International normalized rat io (INR) measurement by fingerstickOrdered By: Zaynab Pina on 09-29-2024 INR Coag (BldC) [Relative time] 1.9 [facility] Comment on above: Critical Value > 4.0 Whole blood prothrombin time Ordered By: Zaynab Pina on 09-29-2024 PT Coag (Bld) [Time] 20.7 s High 11.7-14.9 [facility] Absolute lymphocyte countOrd ered By: Zaynab Pina on 09-25-2024 Lymphocytes Auto (Unsp spec) [#/Vol] 1.19 10*3/uL 0.83-4.51 [facility] Absolute neutrophil countOrd ered By: Zaynab Pina on 09-25-2024 Neutrophils (Bld) [#/Vol] 3.8 10*3/uL 2.0-7.7 [facility] Anion gap in Serum or Plasma Ordered By: Zaynab Pina on 09-25-2024 Anion gap [Moles/Vol] 11 mmol/L 5-15 [facility] Automated lymphocyte count a s percentage of total leukocytesOrdered By: Zaynab Pina on 09-25-2024 Lymphocytes/100 WBC Auto (Unsp spec) 20.2 % 19-41 [facility] BUN/creatinine ratioOrdered By: Zaynab Pina on 09-25-2024 Urea nitrogen/Creatinine [Mass ratio] 29.4 mg/mg High 10-20 [facility] Basophil percentageOrdered B y: Zaynab Pina on 09-25-2024 Basophils/100 WBC (Bld) 0.7 % 0-1 [facility] Carbon dioxide, total [Moles /volume] in Central venous bloodOrdered By: Zaynab Pina on 09-25-2024 CO2 [Moles/Vol] 22.1 mmol/L 21.0-32.0 [facility] Chloride assayOrdered By: Christine Pina on 09-25-2024 Chloride [Moles/Vol] 101 mmol/L 98-108 [facility] Eosinophil percentageOrdered By: Zaynab Pina on 09-25-2024 Eosinophils/100 WBC (Bld) 2.9 % 0-5 [facility] Erythrocyte distribution wid th ratioOrdered By: Zaynab Pina on 09-25-2024 Erythrocyte distribution width (RBC) [Ratio] 14.3 % 11.6-14.6 [facility] Erythrocyte distribution wid th standard deviationOrdered By: Zaynab Pina on 09-25-2024 Erythrocyte distribution width (RBC) [Ratio] 50.6 fl High 35.1-43.9 [facility] Glomerular filtration rate ( GFR) estimation/1.73 sq m using serum, plasma, or whole bOrdered By: Zaynab Pina on 09-25-2024 GFR/1.73 sq M.predicted among non-blacks MDRD (S/P/Bld) [Vol rate/Area] 92 mL/min/{1.73_m2} >60 [facility] Comment on above: mL/min/1.73m2 CKD-EP I Creatinine Equation (2020) Hematocrit Auto (Bld) [Volum e fraction]Ordered By: Zaynab Pina on 09-25-2024 Hematocrit (Bld) [Volume fraction] 33.8 % Low 37-47 [facility] Hemoglobin measurementOrdere d By: Zaynab Pina on 09-25-2024 Hemoglobin (Bld) [Mass/Vol] 11.3 g/dL Low 12.0-15.0 [facility] Immature granulocytes/100 WB C Auto (Bld)Ordered By: Zaynab Pina on 09-25-2024 Immature granulocytes/100 WBC (Bld) 0.500 % 0.0-0.9 [facility] Comment on above: IG% - Immature Granu locytes (promyelocytes, myelocytes and metamyelocytes) > 1% indicates that a LEFT SHIFT is Present. International normalized rat io (INR) calculationOrdered By: Zaynab Pina on 09-25-2024 INR Coag (Bld) [Relative time] 1.5 {INR} [facility] MCV (mean corpuscular volume ) determinationOrdered By: Zaynab Pina on 09-25-2024 MCV (RBC) [Entitic vol] 96.6 fL 81-99 [facility] Mean corpuscular hemoglobin (MCH) determinationOrdered By: Zaynab Pina on 09-25-2024 MCH (RBC) [Entitic mass] 32.3 pg High 27.0-32.0 [facility] Mean corpuscular hemoglobin concentration (MCHC) determinationOrdered By: Zaynab Pina on 09-25-2024 MCHC (RBC) [Mass/Vol] 33.4 g/dL 32-36 [facility] Mean platelet volume determi nationOrdered By: Zaynab Pina on 09-25-2024 Platelet mean volume (Bld) [Entitic vol] 11.1 fL 6.2-12.0 [facility] Monocyte percentageOrdered B y: Zaynab Pina on 09-25-2024 Monocytes/100 WBC (Bld) 11.9 % High 0-10 [facility] Neutrophil percentageOrdered By: Zaynab Pina on 09-25-2024 Neutrophils/100 WBC (Bld) 63.8 % 47-70 [facility] Nucleated red blood cell per centageOrdered By: Zaynab Pina on 09-25-2024 Nucleated RBC/100 WBC (Bld) [Ratio] 0 % 0-5 [facility] Platelet countOrdered By: Christine Pina on 09-25-2024 Platelets (Bld) [#/Vol] 175 10*3/uL 150-450 [facility] Potassium measurement (mass/ volume)Ordered By: Zaynab Pina on 09-25-2024 Potassium (Unsp spec) [Mass/Vol] 3.9 mmol/L 3.3-5.1 [facility] Prothrombin timeOrdered By: Zaynab Pina on 09-25-2024 PT Coag (PPP) [Time] 18.4 s High 11.7-14.9 [facility] RBC Auto (Bld) [#/Vol]Ordere d By: Zaynab Pina on 09-25-2024 RBC (Bld) [#/Vol] 3.50 10*6/uL Low 4.2-5.4 [facility] Serum creatinine measurement (mass/volume)Ordered By: Zaynab Pina on 09-25-2024 Creatinine [Mass/Vol] 0.62 mg/dL Low 0.70-1.20 [facility] Serum glucose measurement (m ass/volume)Ordered By: Zaynab Pina on 09-25-2024 Glucose [Mass/Vol] 79 mg/dL 70-99 [facility] Serum or plasma calcium monica urement (mass/volume)Ordered By: Zaynab Pina on 09-25-2024 Calcium [Mass/Vol] 8.9 mg/dL 7.6-11.0 [facility] Serum or plasma urea nitroge n measurement (mass/volume)Ordered By: Zaynab Pina on 09-25-2024 Urea nitrogen [Mass/Vol] 18 mg/dL 4-19 [facility] Sodium levelOrdered By: Claudio Pina on 09-25-2024 Sodium [Moles/Vol] 135 mmol/L 133-145 [facility] White blood cell (WBC) count Ordered By: Zaynab Pina on 09-25-2024 WBC (Bld) [#/Vol] 5.9 10*3/uL 4.4-11.0 [facility] International normalized rat io (INR) measurement by fingerstickOrdered By: Zaynab Pina on 09-22-2024 INR Coag (BldC) [Relative time] 2.3 [facility] Comment on above: Critical Value > 4.0 Whole blood prothrombin time Ordered By: Zaynab Pina on 09-22-2024 PT Coag (Bld) [Time] 25.1 s High 11.7-14.9 [facility] Absolute lymphocyte countOrd ered By: Zaynab Pina on 09-18-2024 Lymphocytes Auto (Unsp spec) [#/Vol] 1.05 10*3/uL 0.83-4.51 [facility] Absolute neutrophil countOrd ered By: Zaynab Pina on 09-18-2024 Neutrophils (Bld) [#/Vol] 3.8 10*3/uL 2.0-7.7 [facility] Anion gap in Serum or Plasma Ordered By: Zaynab Pina on 09-18-2024 Anion gap [Moles/Vol] 13 mmol/L 5-15 [facility] Automated lymphocyte count a s percentage of total leukocytesOrdered By: Zaynab Pina on 09-18-2024 Lymphocytes/100 WBC Auto (Unsp spec) 18.2 % Low 19-41 [facility] BUN/creatinine ratioOrdered By: Zaynab Pina on 09-18-2024 Urea nitrogen/Creatinine [Mass ratio] 24.9 mg/mg High 10-20 [facility] Basophil percentageOrdered B y: Zaynab Pina on 09-18-2024 Basophils/100 WBC (Bld) 0.7 % 0-1 [facility] Carbon dioxide, total [Moles /volume] in Central venous bloodOrdered By: Zaynab Pina on 09-18-2024 CO2 [Moles/Vol] 20.4 mmol/L Low 21.0-32.0 [facility] Chloride assayOrdered By: amilcar Pina on 09-18-2024 Chloride [Moles/Vol] 102 mmol/L 98-108 [facility] Eosinophil percentageOrdered By: Zaynab Pina on 09-18-2024 Eosinophils/100 WBC (Bld) 2.6 % 0-5 [facility] Erythrocyte distribution wid th ratioOrdered By: Zaynab Pina on 09-18-2024 Erythrocyte distribution width (RBC) [Ratio] 14.8 % High 11.6-14.6 [facility] Erythrocyte distribution wid th standard deviationOrdered By: Zaynab Pina on 09-18-2024 Erythrocyte distribution width (RBC) [Ratio] 53.0 fl High 35.1-43.9 [facility] Glomerular filtration rate ( GFR) estimation/1.73 sq m using serum, plasma, or whole bOrdered By: Zaynab Pina on 09-18-2024 GFR/1.73 sq M.predicted among non-blacks MDRD (S/P/Bld) [Vol rate/Area] 91 mL/min/{1.73_m2} >60 [facility] Comment on above: mL/min/1.73m2 CKD-EP I Creatinine Equation (2020) Hematocrit Auto (Bld) [Volum e fraction]Ordered By: Zaynab Pina on 09-18-2024 Hematocrit (Bld) [Volume fraction] 34.0 % Low 37-47 [facility] Hemoglobin measurementOrdere d By: Zaynab Pina on 09-18-2024 Hemoglobin (Bld) [Mass/Vol] 11.4 g/dL Low 12.0-15.0 [facility] Immature granulocytes/100 WB C Auto (Bld)Ordered By: Zaynab Pina 09-18-2024 Immature granulocytes/100 WBC (Bld) 0.700 % 0.0-0.9 [facility] Comment on above: IG% - Immature Granu locytes (promyelocytes, myelocytes and metamyelocytes) > 1% indicates that a LEFT SHIFT is Present. International normalized rat io (INR) calculationOrdered By: Zaynab Pina on 09-18-2024 INR Coag (Bld) [Relative time] 3.0 {INR} [facility] MCV (mean corpuscular volume ) determinationOrdered By: Zaynab Pina 09-18-2024 MCV (RBC) [Entitic vol] 97.4 fL 81-99 [facility] Mean corpuscular hemoglobin (MCH) determinationOrdered By: Zaynab Pina 09-18-2024 MCH (RBC) [Entitic mass] 32.7 pg High 27.0-32.0 [facility] Mean corpuscular hemoglobin concentration (MCHC) determinationOrdered By: Zaynab Pina on 09-18-2024 MCHC (RBC) [Mass/Vol] 33.5 g/dL 32-36 [facility] Mean platelet volume determi nationOrdered By: Zaynab Pina on 09-18-2024 Platelet mean volume (Bld) [Entitic vol] 10.9 fL 6.2-12.0 [facility] Monocyte percentageOrdered B y: Zaynab Pina on 09-18-2024 Monocytes/100 WBC (Bld) 11.4 % High 0-10 [facility] Neutrophil percentageOrdered By: Claudiomarydeljoesph Pina on 09-18-2024 Neutrophils/100 WBC (Bld) 66.4 % 47-70 [facility] Nucleated red blood cell per centageOrdered By: Zaynab Pina on 09-18-2024 Nucleated RBC/100 WBC (Bld) [Ratio] 0 % 0-5 [facility] Platelet countOrdered By: Christine elmershala Pina on 09-18-2024 Platelets (Bld) [#/Vol] 179 10*3/uL 150-450 [facility] Potassium measurement (mass/ volume)Ordered By: Zaynab Pina on 09-18-2024 Potassium (Unsp spec) [Mass/Vol] 3.9 mmol/L 3.3-5.1 [facility] Prothrombin timeOrdered By: Zaynab Pina on 09-18-2024 PT Coag (PPP) [Time] 31.5 s High 11.7-14.9 [facility] RBC Auto (Bld) [#/Vol]Ordere d By: Zaynab Pina on 09-18-2024 RBC (Bld) [#/Vol] 3.49 10*6/uL Low 4.2-5.4 [facility] Serum creatinine measurement (mass/volume)Ordered By: Zaynab Pina on 09-18-2024 Creatinine [Mass/Vol] 0.63 mg/dL Low 0.70-1.20 [facility] Serum glucose measurement (m ass/volume)Ordered By: Zaynab Pina on 09-18-2024 Glucose [Mass/Vol] 82 mg/dL 70-99 [facility] Serum or plasma calcium monica urement (mass/volume)Ordered By: Christineelmershala Pina on 09-18-2024 Calcium [Mass/Vol] 9.0 mg/dL 7.6-11.0 [facility] Serum or plasma urea nitroge n measurement (mass/volume)Ordered By: Christineelmershala Dilipjohnny on 09-18-2024 Urea nitrogen [Mass/Vol] 16 mg/dL 4-19 [facility] Sodium levelOrdered By: Claudoi Alvesmarily on 09-18-2024 Sodium [Moles/Vol] 135 mmol/L 133-145 [facility] White blood cell (WBC) count Ordered By: Christineelmertanjoesph Cherryjohnny on 09-18-2024 WBC (Bld) [#/Vol] 5.8 10*3/uL 4.4-11.0 [facility] International normalized rat io (INR) calculationOrdered By: Zaynab Cherrynatimarily on 09-15-2024 INR Coag (Bld) [Relative time] 1.8 {INR} [facility] Prothrombin timeOrdered By: Christineelmershala Dilipjohnny on 09-15-2024 PT Coag (PPP) [Time] 21.3 s High 11.7-14.9 [facility] Absolute lymphocyte countOrd ered By: Christineamilcar Cherrynatimarily on 09-11-2024 Lymphocytes Auto (Unsp spec) [#/Vol] 1.10 10*3/uL 0.83-4.51 [facility] Absolute neutrophil countOrd ered By: Christineelmertanjoesph Cherrynatimarily on 09-11-2024 Neutrophils (Bld) [#/Vol] 3.6 10*3/uL 2.0-7.7 [facility] Anion gap in Serum or Plasma Ordered By: Zaynab Dilipjohnny on 09-11-2024 Anion gap [Moles/Vol] 12 mmol/L 5-15 [facility] Automated lymphocyte count a s percentage of total leukocytesOrdered By: Christineamilcar Cherrynatimarily 09-11-2024 Lymphocytes/100 WBC Auto (Unsp spec) 19.9 % 19-41 [facility] BUN/creatinine ratioOrdered By: Zaynab Pina on 09-11-2024 Urea nitrogen/Creatinine [Mass ratio] 24.2 mg/mg High 10-20 [facility] Basophil percentageOrdered B y: Claudiotanjoesph Cherrynatimarily on 09-11-2024 Basophils/100 WBC (Bld) 0.5 % 0-1 [facility] Carbon dioxide, total [Moles /volume] in Central venous bloodOrdered By: Zaynab Pina on 09-11-2024 CO2 [Moles/Vol] 21.7 mmol/L 21.0-32.0 [facility] Chloride assayOrdered By: Christine elmershala Pina on 09-11-2024 Chloride [Moles/Vol] 103 mmol/L 98-108 [facility] Eosinophil percentageOrdered By: Christineamilcar Cherrynatimarily on 09-11-2024 Eosinophils/100 WBC (Bld) 2.2 % 0-5 [facility] Erythrocyte distribution wid th ratioOrdered By: Zaynab Pina on 09-11-2024 Erythrocyte distribution width (RBC) [Ratio] 15.5 % High 11.6-14.6 [facility] Erythrocyte distribution wid th standard deviationOrdered By: Christineamilcar Cherrynatimarily on 09-11-2024 Erythrocyte distribution width (RBC) [Ratio] 55.0 fl High 35.1-43.9 [facility] Glomerular filtration rate ( GFR) estimation/1.73 sq m using serum, plasma, or whole bOrdered By: Zaynab Pina on 09-11-2024 GFR/1.73 sq M.predicted among non-blacks MDRD (S/P/Bld) [Vol rate/Area] 91 mL/min/{1.73_m2} >60 [facility] Comment on above: mL/min/1.73m2 CKD-EP I Creatinine Equation (2020) Hematocrit Auto (Bld) [Volum e fraction]Ordered By: Zaynab Pina on 09-11-2024 Hematocrit (Bld) [Volume fraction] 33.3 % Low 37-47 [facility] Hemoglobin measurementOrdere d By: Zaynab Pina on 09-11-2024 Hemoglobin (Bld) [Mass/Vol] 11.1 g/dL Low 12.0-15.0 [facility] Immature granulocytes/100 WB C Auto (Bld)Ordered By: Zaynab Pina on 09-11-2024 Immature granulocytes/100 WBC (Bld) 0.500 % 0.0-0.9 [facility] Comment on above: IG% - Immature Granu locytes (promyelocytes, myelocytes and metamyelocytes) > 1% indicates that a LEFT SHIFT is Present. International normalized rat io (INR) calculationOrdered By: Zaynab Pina on 09-11-2024 INR Coag (Bld) [Relative time] 2.1 {INR} [facility] MCV (mean corpuscular volume ) determinationOrdered By: Zaynab Pina on 09-11-2024 MCV (RBC) [Entitic vol] 96.5 fL 81-99 [facility] Mean corpuscular hemoglobin (MCH) determinationOrdered By: Zaynab Pina on 09-11-2024 MCH (RBC) [Entitic mass] 32.2 pg High 27.0-32.0 [facility] Mean corpuscular hemoglobin concentration (MCHC) determinationOrdered By: Zaynab Pina on 09-11-2024 MCHC (RBC) [Mass/Vol] 33.3 g/dL 32-36 [facility] Mean platelet volume determi nationOrdered By: Zaynab Pina on 09-11-2024 Platelet mean volume (Bld) [Entitic vol] 10.6 fL 6.2-12.0 [facility] Monocyte percentageOrdered B y: Zaynab Pina on 09-11-2024 Monocytes/100 WBC (Bld) 12.0 % High 0-10 [facility] Neutrophil percentageOrdered By: Zaynab Pina on 09-11-2024 Neutrophils/100 WBC (Bld) 64.9 % 47-70 [facility] Nucleated red blood cell per centageOrdered By: Zaynab Pina on 09-11-2024 Nucleated RBC/100 WBC (Bld) [Ratio] 0 % 0-5 [facility] Platelet countOrdered By: Christine Pina on 09-11-2024 Platelets (Bld) [#/Vol] 202 10*3/uL 150-450 [facility] Potassium measurement (mass/ volume)Ordered By: Zaynab Pina on 09-11-2024 Potassium (Unsp spec) [Mass/Vol] 3.8 mmol/L 3.3-5.1 [facility] Prothrombin timeOrdered By: Zaynab Pina on 09-11-2024 PT Coag (PPP) [Time] 23.8 s High 11.7-14.9 [facility] RBC Auto (Bld) [#/Vol]Ordere d By: Zaynab Pina on 09-11-2024 RBC (Bld) [#/Vol] 3.45 10*6/uL Low 4.2-5.4 [facility] Serum creatinine measurement (mass/volume)Ordered By: Zaynab Pina on 09-11-2024 Creatinine [Mass/Vol] 0.65 mg/dL Low 0.70-1.20 [facility] Serum glucose measurement (m ass/volume)Ordered By: Zaynab Pina on 09-11-2024 Glucose [Mass/Vol] 80 mg/dL 70-99 [facility] Serum or plasma calcium monica urement (mass/volume)Ordered By: Zaynab Pina on 09-11-2024 Calcium [Mass/Vol] 9.0 mg/dL 7.6-11.0 [facility] Serum or plasma urea nitroge n measurement (mass/volume)Ordered By: Zaynab Pina on 09-11-2024 Urea nitrogen [Mass/Vol] 16 mg/dL 4-19 [facility] Sodium levelOrdered By: Claudio powellhasmukh Yovani on 09-11-2024 Sodium [Moles/Vol] 137 mmol/L 133-145 [facility] White blood cell (WBC) count Ordered By: Zaynab Pina on 09-11-2024 WBC (Bld) [#/Vol] 5.5 10*3/uL 4.4-11.0 [facility] International normalized rat io (INR) measurement by fingerstickOrdered By: Zaynab Pina on 09-08-2024 INR Coag (BldC) [Relative time] 2.4 [facility] Comment on above: Critical Value > 4.0 Whole blood prothrombin time Ordered By: Zaynab Pina on 09-08-2024 PT Coag (Bld) [Time] 25.4 s High 11.7-14.9 [facility] Absolute lymphocyte countOrd ered By: Zaynab Pina on 09-04-2024 Lymphocytes Auto (Unsp spec) [#/Vol] 1.06 10*3/uL 0.83-4.51 [facility] Absolute neutrophil countOrd ered By: Claudiojoesph Cherrynatimarily on 09-04-2024 Neutrophils (Bld) [#/Vol] 4.0 10*3/uL 2.0-7.7 [facility] Anion gap in Serum or Plasma Ordered By: Zaynab Pina on 09-04-2024 Anion gap [Moles/Vol] 13 mmol/L 5-15 [facility] Automated lymphocyte count a s percentage of total leukocytesOrdered By: Zaynab Pian on 09-04-2024 Lymphocytes/100 WBC Auto (Unsp spec) 18.2 % Low 19-41 [facility] BUN/creatinine ratioOrdered By: Zaynab Pina on 09-04-2024 Urea nitrogen/Creatinine [Mass ratio] 23.8 mg/mg High 10-20 [facility] Basophil percentageOrdered B y: Zaynab Pina on 09-04-2024 Basophils/100 WBC (Bld) 0.5 % 0-1 [facility] Carbon dioxide, total [Moles /volume] in Central venous bloodOrdered By: Zaynab Pina on 09-04-2024 CO2 [Moles/Vol] 21.1 mmol/L 21.0-32.0 [facility] Chloride assayOrdered By: Christine Pina on 09-04-2024 Chloride [Moles/Vol] 102 mmol/L 98-108 [facility] Eosinophil percentageOrdered By: Zaynab Pina on 09-04-2024 Eosinophils/100 WBC (Bld) 1.9 % 0-5 [facility] Erythrocyte distribution wid th ratioOrdered By: Zaynab Pina on 09-04-2024 Erythrocyte distribution width (RBC) [Ratio] 15.8 % High 11.6-14.6 [facility] Erythrocyte distribution wid th standard deviationOrdered By: Zaynab Pina on 09-04-2024 Erythrocyte distribution width (RBC) [Ratio] 54.7 fl High 35.1-43.9 [facility] Glomerular filtration rate ( GFR) estimation/1.73 sq m using serum, plasma, or whole bOrdered By: Zaynab Pina on 09-04-2024 GFR/1.73 sq M.predicted among non-blacks MDRD (S/P/Bld) [Vol rate/Area] 91 mL/min/{1.73_m2} >60 [facility] Comment on above: mL/min/1.73m2 CKD-EP I Creatinine Equation (2020) Hematocrit Auto (Bld) [Volum e fraction]Ordered By: Zaynab Pina on 09-04-2024 Hematocrit (Bld) [Volume fraction] 32.5 % Low 37-47 [facility] Hemoglobin measurementOrdere d By: Claudiomarydeljoesph Pina 09-04-2024 Hemoglobin (Bld) [Mass/Vol] 11.0 g/dL Low 12.0-15.0 [facility] Immature granulocytes/100 WB C Auto (Bld)Ordered By: Zaynab Pina 09-04-2024 Immature granulocytes/100 WBC (Bld) 0.700 % 0.0-0.9 [facility] Comment on above: IG% - Immature Granu locytes (promyelocytes, myelocytes and metamyelocytes) > 1% indicates that a LEFT SHIFT is Present. International normalized rat io (INR) calculationOrdered By: Zaynab Pina 09-04-2024 INR Coag (Bld) [Relative time] 2.5 {INR} [facility] MCV (mean corpuscular volume ) determinationOrdered By: Zaynab Pina 09-04-2024 MCV (RBC) [Entitic vol] 94.2 fL 81-99 [facility] Mean corpuscular hemoglobin (MCH) determinationOrdered By: Zaynab Pina on 09-04-2024 MCH (RBC) [Entitic mass] 31.9 pg 27.0-32.0 [facility] Mean corpuscular hemoglobin concentration (MCHC) determinationOrdered By: Zaynab Pina on 09-04-2024 MCHC (RBC) [Mass/Vol] 33.8 g/dL 32-36 [facility] Mean platelet volume determi nationOrdered By: Zaynab Pina on 09-04-2024 Platelet mean volume (Bld) [Entitic vol] 10.8 fL 6.2-12.0 [facility] Monocyte percentageOrdered B y: Zaynab Pina on 09-04-2024 Monocytes/100 WBC (Bld) 11.0 % High 0-10 [facility] Neutrophil percentageOrdered By: Zaynab Pina on 09-04-2024 Neutrophils/100 WBC (Bld) 67.7 % 47-70 [facility] Nucleated red blood cell per centageOrdered By: Zaynab Pina on 09-04-2024 Nucleated RBC/100 WBC (Bld) [Ratio] 0 % 0-5 [facility] Platelet countOrdered By: Christine elmershala Pina on 09-04-2024 Platelets (Bld) [#/Vol] 224 10*3/uL 150-450 [facility] Potassium measurement (mass/ volume)Ordered By: Zaynab Pina on 09-04-2024 Potassium (Unsp spec) [Mass/Vol] 3.9 mmol/L 3.3-5.1 [facility] Prothrombin timeOrdered By: Zaynab Pina on 09-04-2024 PT Coag (PPP) [Time] 27.6 s High 11.7-14.9 [facility] RBC Auto (Bld) [#/Vol]Ordere d By: Zaynab Pina on 09-04-2024 RBC (Bld) [#/Vol] 3.45 10*6/uL Low 4.2-5.4 [facility] Serum creatinine measurement (mass/volume)Ordered By: Zaynab Pina on 07-17-2025 Creatinine [Mass/Vol] 0.63 mg/dL Low 0.70-1.20 [facility] Serum glucose measurement (m ass/volume)Ordered By: Zaynab Pina on 09-04-2024 Glucose [Mass/Vol] 78 mg/dL 70-99 [facility] Serum or plasma calcium monica urement (mass/volume)Ordered By: Zaynab Pina on 09-04-2024 Calcium [Mass/Vol] 9.2 mg/dL 7.6-11.0 [facility] Serum or plasma urea nitroge n measurement (mass/volume)Ordered By: Zaynab Pina on 09-04-2024 Urea nitrogen [Mass/Vol] 15 mg/dL 4-19 [facility] Sodium levelOrdered By: Claudio powellhasmukh Yovani on 09-04-2024 Sodium [Moles/Vol] 136 mmol/L 133-145 [facility] White blood cell (WBC) count Ordered By: Zaynab Pina on 09-04-2024 WBC (Bld) [#/Vol] 5.8 10*3/uL 4.4-11.0 [facility] International normalized rat io (INR) measurement by fingerstickOrdered By: Zaynab Pina on 09-01-2024 INR Coag (BldC) [Relative time] 2.7 [facility] Comment on above: Critical Value > 4.0 Whole blood prothrombin time Ordered By: Zaynab Pina on 09-01-2024 PT Coag (Bld) [Time] 28.1 s High 11.7-14.9 [facility] Prothrombin Time w/INRon INR Normal [facility] Comment on above: Result Comment: Canc elled via OM: Order cancelled - Patient discharged Performed By: #### L 300.3900 #### [facility] [address] [place], [place], [id number] PROTIME Normal 11.7-14.9 [facility] Comment on above: Result Comment: Canc elled via OM: Order cancelled - Patient discharged Performed By: #### L 300.3900 #### [facility] [address] [place], [address] Absolute lymphocyte countOrd ered By: Zaynab Pina on 08-28-2024 Lymphocytes Auto (Unsp spec) [#/Vol] 1.04 10*3/uL 0.83-4.51 [facility] Absolute neutrophil countOrd ered By: Zaynab Pina on 08-28-2024 Neutrophils (Bld) [#/Vol] 4.0 10*3/uL 2.0-7.7 [facility] Anion gap in Serum or Plasma Ordered By: Zaynab Pina on 08-28-2024 Anion gap [Moles/Vol] 10 mmol/L 5-15 [facility] Automated lymphocyte count a s percentage of total leukocytesOrdered By: Zaynab Pina on 08-28-2024 Lymphocytes/100 WBC Auto (Unsp spec) 17.6 % Low 19-41 [facility] BUN/creatinine ratioOrdered By: Zaynab Pina on 08-28-2024 Urea nitrogen/Creatinine [Mass ratio] 23.6 mg/mg High 10-20 [facility] Basophil percentageOrdered B y: Zaynab Pina on 08-28-2024 Basophils/100 WBC (Bld) 0.7 % 0-1 [facility] Bilirubin, totalOrdered By: Zaynab Pina on 08-28-2024 Bilirubin [Mass/Vol] 0.42 mg/dL 0.00-1.30 [facility] Carbon dioxide, total [Moles /volume] in Central venous bloodOrdered By: Zaynab Pina on 08-28-2024 CO2 [Moles/Vol] 23.7 mmol/L 21.0-32.0 [facility] Chloride assayOrdered By: Christine Pina on 08-28-2024 Chloride [Moles/Vol] 103 mmol/L 98-108 [facility] Eosinophil percentageOrdered By: Zaynab Alvese on 08-28-2024 Eosinophils/100 WBC (Bld) 1.7 % 0-5 [facility] Erythrocyte distribution wid th ratioOrdered By: Zaynab Pina on 08-28-2024 Erythrocyte distribution width (RBC) [Ratio] 16.8 % High 11.6-14.6 [facility] Erythrocyte distribution wid th standard deviationOrdered By: elmermarydeljoesph Pina on 08-28-2024 Erythrocyte distribution width (RBC) [Ratio] 58.6 fl High 35.1-43.9 [facility] Glomerular filtration rate ( GFR) estimation/1.73 sq m using serum, plasma, or whole bOrdered By: amilcar Pina on 08-28-2024 GFR/1.73 sq M.predicted among non-blacks MDRD (S/P/Bld) [Vol rate/Area] 90 mL/min/{1.73_m2} >60 [facility] Comment on above: mL/min/1.73m2 CKD-EP I Creatinine Equation (2020) Hematocrit Auto (Bld) [Volum e fraction]Ordered By: [facility] Dilipmarily 08-28-2024 Hematocrit (Bld) [Volume fraction] 33.3 % Low 37-47 [facility] Hemoglobin measurementOrdere d By: Zaynab Pina 08-28-2024 Hemoglobin (Bld) [Mass/Vol] 10.9 g/dL Low 12.0-15.0 [facility] Immature granulocytes/100 WB C Auto (Bld)Ordered By: Zaynab Pina 08-28-2024 Immature granulocytes/100 WBC (Bld) 0.300 % 0.0-0.9 [facility] Comment on above: IG% - Immature Granu locytes (promyelocytes, myelocytes and metamyelocytes) > 1% indicates that a LEFT SHIFT is Present. International normalized rat io (INR) calculationOrdered By: Zaynab Pina 08-28-2024 INR Coag (Bld) [Relative time] 2.2 {INR} [facility] - Chemistry and C hemistry - challengeOrdered By: amilcar Pina 08-28-2024 AST [Catalytic activity/Vol] 23 U/L <32 [facility] MCV (mean corpuscular volume ) determinationOrdered By: [facility] 08-28-2024 MCV (RBC) [Entitic vol] 96.0 fL 81-99 [facility] Mean corpuscular hemoglobin (MCH) determinationOrdered By: Zaynab Pina on 08-28-2024 MCH (RBC) [Entitic mass] 31.4 pg 27.0-32.0 [facility] Mean corpuscular hemoglobin concentration (MCHC) determinationOrdered By: Zaynab Pina on 08-28-2024 MCHC (RBC) [Mass/Vol] 32.7 g/dL 32-36 [facility] Mean platelet volume determi nationOrdered By: Zaynab Pina on 08-28-2024 Platelet mean volume (Bld) [Entitic vol] 10.9 fL 6.2-12.0 [facility] Monocyte percentageOrdered B y: Zaynab Pina on 08-28-2024 Monocytes/100 WBC (Bld) 11.5 % High 0-10 [facility] Neutrophil percentageOrdered By: Claudiomarydeljoesph Pina on 08-28-2024 Neutrophils/100 WBC (Bld) 68.2 % 47-70 [facility] No Panel InformationOrdered By: Zaynab Pina on 08-28-2024 23 U/L <32 [facility] Nucleated red blood cell per centageOrdered By: Zaynab Pina on 08-28-2024 Nucleated RBC/100 WBC (Bld) [Ratio] 0 % 0-5 [facility] Platelet countOrdered By: Christine Pina on 08-28-2024 Platelets (Bld) [#/Vol] 183 10*3/uL 150-450 [facility] Potassium measurement (mass/ volume)Ordered By: Zaynab Pina on 08-28-2024 Potassium (Unsp spec) [Mass/Vol] 4.0 mmol/L 3.3-5.1 [facility] Prothrombin Time w/INRon INR Normal [facility] Comment on above: Result Comment: Canc elled via OM: Order cancelled - Patient discharged Performed By: #### L 975.7271 #### [facility] [place], [address] PROTIME Normal 11.7-14.9 [facility] Comment on above: Result Comment: Canc elled via OM: Order cancelled - Patient discharged Performed By: #### L 300.3900 #### [facility] [address] [place], [place], [address] Prothrombin timeOrdered By: Zaynab Pina on 08-28-2024 PT Coag (PPP) [Time] 24.5 s High 11.7-14.9 [facility] RBC Auto (Bld) [#/Vol]Ordere d By: Zaynab Pina on 08-28-2024 RBC (Bld) [#/Vol] 3.47 10*6/uL Low 4.2-5.4 [facility] Serum creatinine measurement (mass/volume)Ordered By: Zaynab Pnia on 08-28-2024 Creatinine [Mass/Vol] 0.66 mg/dL Low 0.70-1.20 [facility] Serum globulin measurementOr dered By: Zaynab Pina on 08-28-2024 Globulin (S) [Mass/Vol] 2.6 g/dL 2.2-4.2 [facility] Serum glucose measurement (m ass/volume)Ordered By: Zaynab Pina on 08-28-2024 Glucose [Mass/Vol] 88 mg/dL 70-99 [facility] Serum or plasma alanine llamas otransferase (ALT) measurementOrdered By: Zaynab Pina on 08-28-2024 ALT [Catalytic activity/Vol] 16 U/L <35 [facility] Serum or plasma albumin monica urement (mass/volume)Ordered By: Zaynab Pina on 08-28-2024 Albumin [Mass/Vol] 3.8 g/dL 3.4-4.8 [facility] Serum or plasma albumin/glob ulin mass ratioOrdered By: Zaynab Pina on 08-28-2024 Albumin/Globulin [Mass ratio] 1.5 {ratio} 0.9-2.4 [facility] Serum or plasma alkaline juan m sphatase measurementOrdered By: Zaynab Pina on 08-28-2024 ALP [Catalytic activity/Vol] 101 U/L 35-104 [facility] Serum or plasma calcium monica urement (mass/volume)Ordered By: Zaynba Pina on 08-28-2024 Calcium [Mass/Vol] 9.1 mg/dL 7.6-11.0 [facility] Serum or plasma urea nitroge n measurement (mass/volume)Ordered By: Zaynab Pina on 08-28-2024 Urea nitrogen [Mass/Vol] 16 mg/dL 4-19 [facility] Sodium levelOrdered By: Claudio Pina on 08-28-2024 Sodium [Moles/Vol] 137 mmol/L 133-145 [facility] Total proteinOrdered By: Malik Pina on 08-28-2024 Protein [Mass/Vol] 6.3 g/dL 5.9-8.4 [facility] White blood cell (WBC) count Ordered By: Zaynab Pina on 08-28-2024 WBC (Bld) [#/Vol] 5.9 10*3/uL 4.4-11.0 [facility] International normalized rat io (INR) calculationOrdered By: Jasmyn Chan on 08-27-2024 INR Coag (Bld) [Relative time] 1.7 {INR} [facility] Prothrombin Time w/INRon INR Coag (PPP) [Relative time] 1.7 {INR} Normal [facility] Comment on above: Performed By: #### L 300.3900 #### [facility] [address] [place], [address] ( PT Coag (PPP) [Time] 20.6 s High 11.7-14.9 [facility] Comment on above: Performed By: #### L 300.3900 #### [facility] [address] [place], [address] Prothrombin timeOrdered By: Jasmyn Chan on 08-27-2024 PT Coag (PPP) [Time] 20.6 s High 11.7-14.9 [facility] Prothrombin Time w/INRon INR Coag (PPP) [Relative time] 1.4 {INR} Normal [facility] Comment on above: Performed By: #### L 500.2500, L100.0100 #### [facility] [address] [place], [address] PT Coag (PPP) [Time] 17.7 s High 11.7-14.9 [facility] Comment on above: Performed By: #### L 500.2500, L100.0100 #### [facility] [address] [place], [address] Prothrombin Time w/INRon INR Coag (PPP) [Relative time] 1.4 {INR} Normal [facility] Comment on above: Performed By: #### L 300.3900 #### [facility] [address] [place], [address] PT Coag (PPP) [Time] 17.7 s High 11.7-14.9 [facility] Comment on above: Performed By: #### L 300.3900 #### [facility] [address] [place], [address] Absolute lymphocyte countOrd ered By: Erasmo House on 08-24-2024 Lymphocytes Auto (Unsp spec) [#/Vol] 0.85 10*3/uL 0.83-4.51 [facility] Absolute neutrophil countOrd ered By: Erasmo House on 08-24-2024 Neutrophils (Bld) [#/Vol] 3.7 10*3/uL 2.0-7.7 [facility] Anion gap in Serum or Plasma Ordered By: Erasmo House on 08-24-2024 Anion gap [Moles/Vol] 13 mmol/L 5-15 [facility] Automated lymphocyte count a s percentage of total leukocytesOrdered By: Erasmo House on 08-24-2024 Lymphocytes/100 WBC Auto (Unsp spec) 15.8 % Low 19-41 [facility] BUN/creatinine ratioOrdered By: Erasmo House on 08-24-2024 Urea nitrogen/Creatinine [Mass ratio] 22.5 mg/mg High 10-20 [facility] Basic Metabolic Profile (BMP )on 08-24-2024 BUN/CRE 22.5 RATIO High 10-20 [facility] Comment on above: Performed By: #### L 100.0100, L300.3900, L500.2500 #### [facility] [address] [place], [id number] Calcium [Mass/Vol] 9.0 mg/dL Normal 7.6-11.0 [facility] Comment on above: Performed By: #### L 100.0100, L300.3900, L500.2500 #### [facility] [address] [place], [address] Chloride [Moles/Vol] 105 mmol/L Normal 98-108 [facility] Comment on above: Performed By: #### L 100.0100, L300.3900, L500.2500 #### [facility] [address] [place], [address] CO2 [Moles/Vol] 21.9 mmol/L Normal 21.0-32.0 [facility] Comment on above: Performed By: #### L 100.0100, L300.3900, L500.2500 #### [facility] [address] [place], [address] Creatinine [Mass/Vol] 0.65 mg/dL Low 0.70-1.20 [facility] Comment on above: Performed By: #### L 100.0100, L300.3900, L500.2500 #### [facility] [address] [place], [address] ECRCL 48.72 ml/min Low 50-250 [facility] Comment on above: Performed By: #### L 100.0100, L300.3900, L500.2500 #### [facility] [address] [place], [address] GAP 13 Normal 5-15 [facility] Comment on above: Performed By: #### L 100.0100, L300.3900, L500.2500 #### [facility] [address] [place], [address] GFR/1.73 sq M.predicted among non-blacks MDRD (S/P/Bld) [Vol rate/Area] 91 mL/min/{1.73_m2} Normal >60 [facility] Comment on above: Result Comment: mL/m in/1.73m2 CKD-EPI Creatinine Equation (2020) Performed By: #### L 100.0100, L300.3900, L500.2500 #### [facility] [address] [place], [id number] Glucose [Mass/Vol] 90 mg/dL Normal 70-99 [facility] Comment on above: Performed By: #### L 100.0100, L300.3900, L500.2500 #### [facility] [address] [place], [id number] Potassium [Moles/Vol] 3.9 mmol/L Normal 3.3-5.1 [facility] Comment on above: Performed By: #### L 100.0100, L300.3900, L500.2500 #### [facility] [address] [place], [id number] Sodium [Moles/Vol] 140 mmol/L Normal 133-145 [facility] Comment on above: Performed By: #### L 100.0100, L300.3900, L500.2500 #### [facility] [address] [place], [id number] Urea nitrogen [Mass/Vol] 15 mg/dL Normal 4-19 [facility] Comment on above: Performed By: #### L 100.0100, L300.3900, L500.2500 #### [facility] [address] [place], [address] Basophil percentageOrdered B y: Erasmo House on 08-24-2024 Basophils/100 WBC (Bld) 0.6 % 0-1 [facility] CBC W/Diff, Automatedon Absolute Lymph 0.85 X10 3/uL Normal 0.83-4.51 [facility] Comment on above: Performed By: #### L 100.0100, L300.3900, L500.2500 #### [facility] [address] [place], [address] Absolute Neut 3.7 X10 3/uL Normal 2.0-7.7 [facility] Comment on above: Performed By: #### L 100.0100, L300.3900, L500.2500 #### [facility] [address] [place], [address] Basophils/100 WBC (Bld) 0.6 % Normal 0-1 [facility] Comment on above: Performed By: #### L 100.0100, L300.3900, L500.2500 #### [facility] [address] [place], [address] Eosinophils/100 WBC (Bld) 1.5 % Normal 0-5 [facility] Comment on above: Performed By: #### L 100.0100, L300.3900, L500.2500 #### [facility] [address] [place], [address] Erythrocyte distribution width (RBC) [Ratio] 17.2 % High 11.6-14.6 [facility] Comment on above: Performed By: #### L 100.0100, L300.3900, L500.2500 #### [facility] [address] [place], [address] Hematocrit (Bld) [Volume fraction] 34.6 % Low 37-47 [facility] Comment on above: Performed By: #### L 100.0100, L300.3900, L500.2500 #### [facility] [address] [place], [address] Hemoglobin (Bld) [Mass/Vol] 11.4 g/dL Low 12.0-15.0 [facility] Comment on above: Performed By: #### L 100.0100, L300.3900, L500.2500 #### [facility] [address] [place], [address] IG% 0.400 Normal 0.0-0.9 [facility] Comment on above: Result Comment: IG% - Immature Granulocytes (promyelocytes, myelocytes and metamyelocytes) > 1% indicates that a LEFT SHIFT is Present. Performed By: #### L 100.0100, L300.3900, L500.2500 #### [facility] [address] [place], [address] Lymphocytes/100 WBC (Bld) 15.8 % Low 19-41 [facility] Comment on above: Performed By: #### L 100.0100, L300.3900, L500.2500 #### [facility] [address] [place], [id number] MCH (RBC) [Entitic mass] 31.8 pg Normal 27.0-32.0 [facility] Comment on above: Performed By: #### L 100.0100, L300.3900, L500.2500 #### [facility] [address] [place], [id number] MCHC (RBC) [Mass/Vol] 32.9 g/dL Normal 32-36 [facility] Comment on above: Performed By: #### L 100.0100, L300.3900, L500.2500 #### [facility] [address] [place], [address] MCV (RBC) [Entitic vol] 96.6 fL Normal 81-99 [facility] Comment on above: Performed By: #### L 100.0100, L300.3900, L500.2500 #### [facility] [address] [place], Monocytes/100 WBC (Bld) 12.6 % High 0-10 [facility] Comment on above: Performed By: #### L 100.0100, L300.3900, L500.2500 #### [facility] [address] [place], [id number] Neutrophils/100 WBC (Bld) 69.1 % Normal 47-70 [facility] Comment on above: Performed By: #### L 100.0100, L300.3900, L500.2500 #### [facility] [address] [place], [id number] Nucleated RBC (Bld) [#/Vol] 0 10*3/uL Normal 0-5 [facility] Comment on above: Performed By: #### L 100.0100, L300.3900, L500.2500 #### [facility] [address] [place], [id number] Platelet mean volume (Bld) [Entitic vol] 11.0 fL Normal 6.2-12.0 [facility] Comment on above: Performed By: #### L 100.0100, L300.3900, L500.2500 #### [facility] [address] [place], [id number] Platelets (Bld) [#/Vol] 154 10*3/uL Normal 150-450 [facility] Comment on above: Performed By: #### L 100.0100, L300.3900, L500.2500 #### [facility] [address] [place], [id number] RBC (Bld) [#/Vol] 3.58 10*6/uL Low 4.2-5.4 [facility] Comment on above: Performed By: #### L 100.0100, L300.3900, L500.2500 #### [facility] [address] [place], [address] RDW SD 61.1 fl High 35.1-43.9 [facility] Comment on above: Performed By: #### L 100.0100, L300.3900, L500.2500 #### [facility] [address] [place], [address] WBC (Bld) [#/Vol] 5.4 10*3/uL Normal 4.4-11.0 [facility] Comment on above: Performed By: #### L 100.0100, L300.3900, L500.2500 #### [facility] [address] [place], [address] Carbon dioxide, total [Moles /volume] in Central venous bloodOrdered By: Erasmo House on 08-24-2024 CO2 [Moles/Vol] 21.9 mmol/L 21.0-32.0 [facility] Chloride assayOrdered By: Edouard House on 08-24-2024 Chloride [Moles/Vol] 105 mmol/L 98-108 [facility] Eosinophil percentageOrdered By: Erasmo House on 08-24-2024 Eosinophils/100 WBC (Bld) 1.5 % 0-5 [facility] Erythrocyte distribution wid th ratioOrdered By: Erasmo House on 08-24-2024 Erythrocyte distribution width (RBC) [Ratio] 17.2 % High 11.6-14.6 [facility] Erythrocyte distribution wid th standard deviationOrdered By: Erasmo House on 08-24-2024 Erythrocyte distribution width (RBC) [Ratio] 61.1 fl High 35.1-43.9 [facility] Glomerular filtration rate ( GFR) estimation/1.73 sq m using serum, plasma, or whole bOrdered By: Erasmo House on 08-24-2024 GFR/1.73 sq M.predicted among non-blacks MDRD (S/P/Bld) [Vol rate/Area] 91 mL/min/{1.73_m2} >60 [facility] Comment on above: mL/min/1.73m2 CKD-EP I Creatinine Equation (2020) Hematocrit Auto (Bld) [Volum e fraction]Ordered By: Erasmo House on 08-24-2024 Hematocrit (Bld) [Volume fraction] 34.6 % Low 37-47 [facility] Hemoglobin measurementOrdere d By: Erasmo House on 08-24-2024 Hemoglobin (Bld) [Mass/Vol] 11.4 g/dL Low 12.0-15.0 [facility] Immature granulocytes/100 WB C Auto (Bld)Ordered By: Erasmo House on 08-24-2024 Immature granulocytes/100 WBC (Bld) 0.400 % 0.0-0.9 [facility] Comment on above: IG% - Immature Granu locytes (promyelocytes, myelocytes and metamyelocytes) > 1% indicates that a LEFT SHIFT is Present. MCV (mean corpuscular volume ) determinationOrdered By: Erasmo House on 08-24-2024 MCV (RBC) [Entitic vol] 96.6 fL 81-99 [facility] Mean corpuscular hemoglobin (MCH) determinationOrdered By: Erasmo House on 08-24-2024 MCH (RBC) [Entitic mass] 31.8 pg 27.0-32.0 [facility] Mean corpuscular hemoglobin concentration (MCHC) determinationOrdered By: Erasmo oHuse on 08-24-2024 MCHC (RBC) [Mass/Vol] 32.9 g/dL 32-36 [facility] Mean platelet volume determi nationOrdered By: Erasmo House on 08-24-2024 Platelet mean volume (Bld) [Entitic vol] 11.0 fL 6.2-12.0 [facility] Monocyte percentageOrdered B y: Erasmo House on 08-24-2024 Monocytes/100 WBC (Bld) 12.6 % High 0-10 [facility] Neutrophil percentageOrdered By: Erasmo House on 08-24-2024 Neutrophils/100 WBC (Bld) 69.1 % 47-70 [facility] Nucleated red blood cell per centageOrdered By: Erasmo House on 08-24-2024 Nucleated RBC/100 WBC (Bld) [Ratio] 0 % 0-5 [facility] Platelet countOrdered By: Edouard House on 08-24-2024 Platelets (Bld) [#/Vol] 154 10*3/uL 150-450 [facility] Potassium measurement (mass/ volume)Ordered By: Erasmo House on 08-24-2024 Potassium (Unsp spec) [Mass/Vol] 3.9 mmol/L 3.3-5.1 [facility] Prothrombin Time w/INRon INR Coag (PPP) [Relative time] 1.3 {INR} Normal [facility] Comment on above: Performed By: #### L 100.0100, L300.3900, L500.2500 #### [facility] [address] [place], [address] PT Coag (PPP) [Time] 16.3 s High 11.7-14.9 [facility] Comment on above: Performed By: #### L 100.0100, L300.3900, L500.2500 #### [facility] [address] [facility] [place], [address] RBC Auto (Bld) [#/Vol]Ordere d By: Erasmo House on 08-24-2024 RBC (Bld) [#/Vol] 3.58 10*6/uL Low 4.2-5.4 [facility] Serum creatinine measurement (mass/volume)Ordered By: Erasmo House on 08-24-2024 Creatinine [Mass/Vol] 0.65 mg/dL Low 0.70-1.20 [facility] Serum glucose measurement (m ass/volume)Ordered By: Erasmo House on 08-24-2024 Glucose [Mass/Vol] 90 mg/dL 70-99 [facility] Serum or plasma calcium monica urement (mass/volume)Ordered By: Erasmo House on 08-24-2024 Calcium [Mass/Vol] 9.0 mg/dL 7.6-11.0 [facility] Serum or plasma urea nitroge n measurement (mass/volume)Ordered By: Erasmo House on 08-24-2024 Urea nitrogen [Mass/Vol] 15 mg/dL 4-19 [facility] Sodium levelOrdered By: Iwona House on 08-24-2024 Sodium [Moles/Vol] 140 mmol/L 133-145 [facility] White blood cell (WBC) count Ordered By: Erasmo House on 08-24-2024 WBC (Bld) [#/Vol] 5.4 10*3/uL 4.4-11.0 [facility] Absolute lymphocyte countOrd ered By: Ron Mariscal on 08-23-2024 Lymphocytes Auto (Unsp spec) [#/Vol] 0.64 10*3/uL Low 0.83-4.51 [facility] Absolute neutrophil countOrd ered By: Ron Mariscal on 08-23-2024 Neutrophils (Bld) [#/Vol] 6.5 10*3/uL 2.0-7.7 [facility] Anion gap in Serum or Plasma Ordered By: Ron Mariscal on 08-23-2024 Anion gap [Moles/Vol] 14 mmol/L 5-15 [facility] Automated lymphocyte count a s percentage of total leukocytesOrdered By: Ron Mariscal on 08-23-2024 Lymphocytes/100 WBC Auto (Unsp spec) 8.1 % Low 19-41 [facility] BUN/creatinine ratioOrdered By: Ron Mariscal on 08-23-2024 Urea nitrogen/Creatinine [Mass ratio] 34.8 mg/mg High 10-20 [facility] Basic Metabolic Profile (BMP )on 08-23-2024 BUN/CRE 34.8 RATIO High - [facility] Comment on above: Performed By: #### L 500.2500, L100.0100 #### [facility] [address] [place], [address] Calcium [Mass/Vol] 9.2 mg/dL Normal 7.6-11.0 [facility] Comment on above: Performed By: #### L 500.2500, L100.0100 #### [facility] [address] [place], [address] Chloride [Moles/Vol] 104 mmol/L Normal 98-108 [facility] Comment on above: Performed By: #### L 500.2500, L100.0100 #### [facility] [address] [place], [address] CO2 [Moles/Vol] 22.1 mmol/L Normal 21.0-32.0 [facility] Comment on above: Performed By: #### L 500.2500, L100.0100 #### [facility] [address] [place], [address] Creatinine [Mass/Vol] 0.63 mg/dL Low 0.70-1.20 [facility] Comment on above: Performed By: #### L 500.2500, L100.0100 #### [facility] [address] [place], [address] ECRCL 48.72 ml/min Low 50-250 [facility] Comment on above: Performed By: #### L 500.2500, L100.0100 #### [facility] [address] [place], [address] GAP 14 Normal 5-15 [facility] Comment on above: Performed By: #### L 500.2500, L100.0100 #### [facility] [address] [place], [address] GFR/1.73 sq M.predicted among non-blacks MDRD (S/P/Bld) [Vol rate/Area] 91 mL/min/{1.73_m2} Normal >60 [facility] Comment on above: Result Comment: mL/m in/1.73m2 CKD-EPI Creatinine Equation (2020) Performed By: #### L 500.2500, L100.0100 #### [facility] [address] [place], [address] Glucose [Mass/Vol] 116 mg/dL High 70-99 [facility] Comment on above: Performed By: #### L 500.2500, L100.0100 #### [facility] [address] [place], [address] Potassium [Moles/Vol] 3.9 mmol/L Normal 3.3-5.1 [facility] Comment on above: Performed By: #### L 500.2500, L100.0100 #### [facility] [address] [place], [address] Sodium [Moles/Vol] 140 mmol/L Normal 133-145 [facility] Comment on above: Performed By: #### L 500.2500, L100.0100 #### [facility] [address] [place], [address] Urea nitrogen [Mass/Vol] 22 mg/dL High 4-19 [facility] Comment on above: Performed By: #### L 500.2500, L100.0100 #### [facility] [address] [place], [address] Basophil percentageOrdered B y: Ron Mariscal on 08-23-2024 Basophils/100 WBC (Bld) 0.4 % 0-1 [facility] Brain/Head without Contrasto n 08-23-2024 Brain/Head without Contrast [facility] Imaging Services [address] [place] [address] Brain/Head without Contrast MR#: [id number] Acct: [id number] Name: HAYDEE BUSTAMANTE Rep #: [id number] : 1945 F 79 From: Jasmyn Herrera MD PCP: Dr. Claudine Durán MD Status: REG ER Study: Brain/Head without Contrast Date of Exam: 07/13 Exam# [id number] Ordering Dr: Ron Mariscal MD EXAM: CT [...] evaluation with MRI is recommended. Reading Location: [facility] CC: Dr. Ron Mariscal MD; Dr. Claudine Durán MD Science Instructor: Signed Normal [facility] CBC W/Diff, Automatedon 07-0 Absolute Lymph 0.64 X10 3/uL Low 0.83-4.51 [facility] Comment on above: Performed By: #### L 500.2500, L100.0100 #### [facility] [address] [place], [place], [address] Absolute Neut 6.5 X10 3/uL Normal 2.0-7.7 [facility] Comment on above: Performed By: #### L 500.2500, L100.0100 #### [facility] [address] [place], [address] Basophils/100 WBC (Bld) 0.4 % Normal 0-1 [facility] Comment on above: Performed By: #### L 500.2500, L100.0100 #### [facility] [address] [place], [address] Eosinophils/100 WBC (Bld) 0.1 % Normal 0-5 [facility] Comment on above: Performed By: #### L 500.2500, L100.0100 #### [facility] [address] [place], [address] Erythrocyte distribution width (RBC) [Ratio] 17.0 % High 11.6-14.6 [facility] Comment on above: Performed By: #### L 500.2500, L100.0100 #### [facility] [address] [place], [address] Hematocrit (Bld) [Volume fraction] 33.9 % Low 37-47 [facility] Comment on above: Performed By: #### L 500.2500, L100.0100 #### [facility] [address] [place], [address] Hemoglobin (Bld) [Mass/Vol] 11.3 g/dL Low 12.0-15.0 [facility] Comment on above: Performed By: #### L 500.2500, L100.0100 #### [facility] [address] [place], [address] IG% 0.500 Normal 0.0-0.9 [facility] Comment on above: Result Comment: IG% - Immature Granulocytes (promyelocytes, myelocytes and metamyelocytes) > 1% indicates that a LEFT SHIFT is Present. Performed By: #### L 500.2500, L100.0100 #### [facility] [address] [place], [address] Lymphocytes/100 WBC (Bld) 8.1 % Low 19-41 [facility] Comment on above: Performed By: #### L 500.2500, L100.0100 #### [facility] [address] [place], [address] MCH (RBC) [Entitic mass] 32.1 pg High 27.0-32.0 [facility] Comment on above: Performed By: #### L 500.2500, L100.0100 #### [facility] [address] [place], [id number] MCHC (RBC) [Mass/Vol] 33.3 g/dL Normal 32-36 [facility] Comment on above: Performed By: #### L 500.2500, L100.0100 #### [facility] [address] [place], [id number] MCV (RBC) [Entitic vol] 96.3 fL Normal 81-99 [facility] Comment on above: Performed By: #### L 500.2500, L100.0100 #### [facility] [address] [place], [address] Monocytes/100 WBC (Bld) 8.6 % Normal 0-10 [facility] Comment on above: Performed By: #### L 500.2500, L100.0100 #### [facility] [address] [place], [id number] Neutrophils/100 WBC (Bld) 82.3 % High 47-70 [facility] Comment on above: Performed By: #### L 500.2500, L100.0100 #### [facility] [address] [place], [id number] Nucleated RBC (Bld) [#/Vol] 0 10*3/uL Normal 0-5 [facility] Comment on above: Performed By: #### L 500.2500, L100.0100 #### [facility] [address] [place], [address] Platelet mean volume (Bld) [Entitic vol] 10.9 fL Normal 6.2-12.0 [facility] Comment on above: Performed By: #### L 500.2500, L100.0100 #### [facility] [address] [place], [id number] Platelets (Bld) [#/Vol] 182 10*3/uL Normal 150-450 [facility] Comment on above: Performed By: #### L 500.2500, L100.0100 #### [facility] [address] [place], [id number] RBC (Bld) [#/Vol] 3.52 10*6/uL Low 4.2-5.4 [facility] Comment on above: Performed By: #### L 500.2500, L100.0100 #### [facility] [address] [place], [id number] RDW SD 58.6 fl High 35.1-43.9 [facility] Comment on above: Performed By: #### L 500.2500, L100.0100 #### [facility] [address] [place], [address] WBC (Bld) [#/Vol] 7.9 10*3/uL Normal 4.4-11.0 [facility] Comment on above: Performed By: #### L 500.2500, L100.0100 #### [facility] [address] [place], [id number] CPK Total, Creatine Kinaseon 08-23-2024 CPK TOTAL 128 U/L Normal 24-195 [facility] Comment on above: Performed By: #### L 500.2500, L100.0100 #### [facility] [address] [place], [address] Carbon dioxide, total [Moles /volume] in Central venous bloodOrdered By: Ron Mariscal on 08-23-2024 CO2 [Moles/Vol] 22.1 mmol/L 21.0-32.0 [facility] Chloride assayOrdered By: Kaitlynn Mariscal on 08-23-2024 Chloride [Moles/Vol] 104 mmol/L 98-108 [facility] Consultation - Orthopedicson 08-23-2024 Consultation - Orthopedics [facility] Medical Records Department [address] [place] [address] Consultation - Orthopedics 08/23/24 1354 MR#: [id number] Acct: [id number] Name: HAYDEE BUSTAMANTE Rep #: [id number] : 1945 79 From: Burak Amanda MD PCP: Dr. Claudine Durná MD Status:ADM ADAIR Location: [facility] [id number] HPI Consult Data Date of Consult: 08/23/24 [...] was admitted for placement and likely rehabilitation. [facility] Medical History Hypertension GERD (gastroesophageal reflux disease) [...] DAILY supplement 4 10/01/23 History tablet) vitamins A,C,C-ccue-sslkca 2,148 2 tab PO BID eye health [...] Rx (Voltaren Arthritis Pain) #100 grams omega 9-nge-ngb-fish oil 1,200 mg 1 cap PO DAILY [...] 06/20/24 10:10 (more content not included)... Normal [facility] Emergency Department Summary on 08-23-2024 Emergency Department Summary [facility] Medical Records Department [address] [place] [address] Emergency Department Summary 08/23/24 MR#: [id number] Acct: [id number] Name: HAYDEE BUSTAMANTE Rep #: [id number] : 1945 79 From: Ron Mariscal MD [...] at any point in time or syncope. Okmnz-lsve-ghyertqo. Lives by herself. 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 She states this morning she laid [...] to if her wrist was not injured [facility] Medical History Hypertension GERD (gastroesophageal reflux [...] DAILY supplement 4 10/01/23 History tablet) vitamins A,C,S-ruxx-aiabjs 2,148 2 tab PO BID eye health [...] tabs Instructions: ON HOLD FOR COLONOSCOPY omega 6-sgm-eko-fish oil 1,200 mg 1 cap PO DAILY [...] Severe Anaph (more content not included)... Normal [facility] Eosinophil percentageOrdered By: Ron Mariscal on 08-23-2024 Eosinophils/100 WBC (Bld) 0.1 % 0-5 [facility] Erythrocyte distribution wid th ratioOrdered By: Ron Mariscal on 08-23-2024 Erythrocyte distribution width (RBC) [Ratio] 17.0 % High 11.6-14.6 [facility] Erythrocyte distribution wid th standard deviationOrdered By: Ron Mariscal on 08-23-2024 Erythrocyte distribution width (RBC) [Ratio] 58.6 fl High 35.1-43.9 [facility] Glomerular filtration rate ( GFR) estimation/1.73 sq m using serum, plasma, or whole bOrdered By: Ron Loida on 08-23-2024 GFR/1.73 sq M.predicted among non-blacks MDRD (S/P/Bld) [Vol rate/Area] 91 mL/min/{1.73_m2} >60 [facility] Comment on above: mL/min/1.73m2 CKD-EP I Creatinine Equation (2020) H AND P Exam - Hospitaliston 08-23-2024 H&P Exam - Hospitalist [facility] Medical Records Department [address] [place] [address] H P Exam - Hospitalist 08/23/24 1023 MR#: [id number] Acct: [id number] Name: HAYDEE BUSTAMANTE Rep #: [id number] : 1945 79 From: Erasmo House MD PCP: Dr. Claudine Durán MD Status:ADM ADAIR Location: [place] [address]-1 [facility] - General General Date of Admission: 08/23/24 [...] x-ray done in the ED were reviewed. [facility] Medical History Hypertension GERD (gastroesophageal reflux disease) [...] DAILY supplement 4 10/01/23 History tablet) vitamins A,C,Q-ydep-bgftbq 2,148 2 tab PO BID eye health [...] Rx (Voltaren Arthritis Pain) #100 grams omega 6-ywe-ody-fish oil 1,200 mg 1 cap PO DAILY [...] smoker alcoho (more content not included)... Normal [facility] Hematocrit Auto (Bld) [Volum e fraction]Ordered By: Ron Mariscal on 08-23-2024 Hematocrit (Bld) [Volume fraction] 33.9 % Low 37-47 [facility] Hemoglobin measurementOrdere d By: Ron Mariscal on 08-23-2024 Hemoglobin (Bld) [Mass/Vol] 11.3 g/dL Low 12.0-15.0 [facility] Immature granulocytes/100 WB C Auto (Bld)Ordered By: Ron Mariscal on 08-23-2024 Immature granulocytes/100 WBC (Bld) 0.500 % 0.0-0.9 [facility] Comment on above: IG% - Immature Granu locytes (promyelocytes, myelocytes and metamyelocytes) > 1% indicates that a LEFT SHIFT is Present. International normalized rat io (INR) calculationOrdered By: Ron Mariscal on 08-23-2024 INR Coag (Bld) [Relative time] 1.2 {INR} [facility] MCV (mean corpuscular volume ) determinationOrdered By: Ron Mariscal on 08-23-2024 MCV (RBC) [Entitic vol] 96.3 fL 81-99 [facility] Magnesiumon 08-23-2024 Magnesium [Mass/Vol] 2.1 mg/dL Normal 1.5-2.2 [facility] Comment on above: Performed By: #### L 500.2500, L100.0100 #### [facility] [address] [place] [address], [address] Magnesium measurement (mass/ volume)Ordered By: Erasmo House on 08-23-2024 Magnesium (Unsp spec) [Mass/Vol] 2.1 mg/dL 1.5-2.2 [facility] Mean corpuscular hemoglobin (MCH) determinationOrdered By: Ron Mariscal on 08-23-2024 MCH (RBC) [Entitic mass] 32.1 pg High 27.0-32.0 [facility] Mean corpuscular hemoglobin concentration (MCHC) determinationOrdered By: Ron Mariscal on 08-23-2024 MCHC (RBC) [Mass/Vol] 33.3 g/dL 32-36 [facility] Mean platelet volume determi nationOrdered By: Ron Mariscal on 08-23-2024 Platelet mean volume (Bld) [Entitic vol] 10.9 fL 6.2-12.0 [facility] Monocyte percentageOrdered B y: Ron Mariscal on 08-23-2024 Monocytes/100 WBC (Bld) 8.6 % 0-10 [facility] Neutrophil percentageOrdered By: Ron Mariscal on 08-23-2024 Neutrophils/100 WBC (Bld) 82.3 % High 47-70 [facility] Nucleated red blood cell per centageOrdered By: Ron Mariscal on 08-23-2024 Nucleated RBC/100 WBC (Bld) [Ratio] 0 % 0-5 [facility] Platelet countOrdered By: Kaitlynn Mariscal on 08-23-2024 Platelets (Bld) [#/Vol] 182 10*3/uL 150-450 [facility] Potassium measurement (mass/ volume)Ordered By: Ron Mariscal on 08-23-2024 Potassium (Unsp spec) [Mass/Vol] 3.9 mmol/L 3.3-5.1 [facility] Prothrombin Time w/INRon INR Coag (PPP) [Relative time] 1.2 {INR} Normal [facility] Comment on above: Performed By: #### L 500.2500, L100.0100 #### [facility] [address] [place], [address] PT Coag (PPP) [Time] 15.5 s High 11.7-14.9 [facility] Comment on above: Performed By: #### L 500.2500, L100.0100 #### [facility] [address] [place], [address] Prothrombin timeOrdered By: Ron Mariscal on 08-23-2024 PT Coag (PPP) [Time] 15.5 s High 11.7-14.9 [facility] RBC Auto (Bld) [#/Vol]Ordere d By: Rno Mariscal on 08-23-2024 RBC (Bld) [#/Vol] 3.52 10*6/uL Low 4.2-5.4 [facility] Serum creatinine measurement (mass/volume)Ordered By: Ron Mariscal on 08-23-2024 Creatinine [Mass/Vol] 0.63 mg/dL Low 0.70-1.20 [facility] Serum glucose measurement (m ass/volume)Ordered By: Ron Mariscal on 08-23-2024 Glucose [Mass/Vol] 116 mg/dL High 70-99 [facility] Serum or plasma calcium monica urement (mass/volume)Ordered By: Ron Mariscal on 08-23-2024 Calcium [Mass/Vol] 9.2 mg/dL 7.6-11.0 [facility] Serum or plasma creatine kin ase activityOrdered By: Ron Mariscal on 08-23-2024 CK [Catalytic activity/Vol] 128 U/L 24-195 [facility] Serum or plasma urea nitroge n measurement (mass/volume)Ordered By: Ron Mariscal on 08-23-2024 Urea nitrogen [Mass/Vol] 22 mg/dL High 4-19 [facility] Sodium levelOrdered By: Cordell Mariscal on 08-23-2024 Sodium [Moles/Vol] 140 mmol/L 133-145 [facility] White blood cell (WBC) count Ordered By: Ron Mariscal on 08-23-2024 WBC (Bld) [#/Vol] 7.9 10*3/uL 4.4-11.0 [facility] Wrist min 3 Viewson 08-24-19 25 Wrist min 3 Views [facility] Imaging Services [address] [place], [place] [address] Wrist min 3 Views MR#: [id number] Acct: [id number] Name: HAYDEE BUSTAMANTE Rep #: [id number] : 1945 F 79 From: Jasmyn Herrera MD PCP: Dr. Claudine Durán MD Status: REG ER Study: Wrist min 3 Views Date of Exam: 08/23/24 Exam# [id number] Ordering Dr: Ron Mariscal MD EXAM: XR [...] distal radius with intra-articular extension. Reading Location: [facility] CC: Dr. Ron Mariscal MD; Dr. Claudine Durán MD Science Instructor: Signed Normal [facility] No Panel InformationOrdered By: Santos Guillory on 08-21-2024 [facility] Cardiac Rehab [address] [place] [address] CR - Individual Treatment Plan MR#: [id number] Acct: [id number] Name: HAYDEE BUSTAMANTE Rep #:[id number] : 1945 79 From: Santos Rubalcava BS, [...] BMI: 23.3 Core - 30-Day Assessment Hypertension [place] [employer] Hypertension Guidelines Reassessment Notes & Comments:: Pt's BP's are within AHA normal limits on some days Core - Final Assessment Hypertension [place] [employer] Hypertension Guidelines Reassessment Notes & Comments:: Pt (more content not included)... [facility] No Panel InformationOrdered By: Santos Guillory on 07-24-2024 [facility] Re[facility] [address] [place] [address] CR - Individual Treatment Plan MR#: [id number] Acct: [id number] Name: HAYDEE BUSTAMANTE Rep #:[id number] : 1945 79 From: Santos Rubalcava BS, RVT PCP: Dr. Claudine Durán MD DOS: 06/13 Exercise - Initial Assessment Physician Prescribed Exercise Modalities: Treadmill, SciFit Stepper and SciFit Pro-II Ergometer Nutrition - Initial Assessment Weight Mgt (Other Care) Height: 5 ft 3 in Weight:: 133 lb BMI: 23.6 Core - Initial Assessment Hypertension Resting Blood Pressure:: 132/70 [place] [employer] Hypertension Guidelines Psychosocial - Initial [...] modify LDL go (more content not included)... [facility] No Panel InformationOrdered By: Santos Guillory on 06-27-2024 [facility] Cardiac Rehab [address] [facility] [place] [address] CR - Individual Treatment Plan MR#: [id number] Acct: [id number] Name: HAYDEE BUSTAMANTE Rep #:[id number] : 1945 79 From: Santos Rubalcava BS, [...] Session 10,Verbalizes symptom (more content not included)... [facility] 12 Lead EKG performed by [facility] on 06-20-2024 12 Lead EKG performed by [facility] [address] [place] [address] 12 Lead EKG performed by [facility] 06/20/24 1547 MR#: [id number] Acct: [id number] Name: HAYDEE BUSTAMANTE Rep #: [id number] : 1945 79 From: Diaz Puckett MD Attending Dr: Dr. Diaz Puckett MD Status: DE P AMB Ordering Dr: Diaz Puckett MD Date: 06/20/24 Location: [facility] Sex: F C Admitted: BMS/12 Lead EKG performed by [facility] ECG Report Interpretation S inus Rhythm - occasional PAC # PACs = 1.-Combined atrial enlargement. Low voltage -possible pulmonary disease. ABNORMAL Electronically signed on 06/20/2024 at 12:[address] Diaz Puckett [employer] Version 8610 06/20/24 1229 Date Diaz Puckett MD CC: Dr. Claudine Durán MD Date Dictated: 06/20/24 154 Date Transcribed: 06/20/241546 Science Instructor: Signed Normal [facility] Cardiology Visit Reporton Cardiology Visit Report [facility] [address] [place] [address] OFFICE VISIT Date of Service: 06/20/24 MR#: [id number] Acct: [id number] Name: HAYDEE BUSTAMANTE Rep #: [id number] : 1945 Provider: Dr. Diaz dickson MD Age/Sex: 79/F Location: [facility] Status: Signed HPI HPI History of Present Illness Details: Patient is a 79-year-old white female comes in today for new patient visit. Patient is routinely cared for in the [facility] system where she had her TAVR April 2024. Patient carries a history of critical aortic stenosis status post TAVR April 2024 at [facility] follow-up echo showed a peak gradient of [...] had been in outpatient rehab here at [facility] which she is tolerating without incident. The patient was not aware of her SBE prophylaxis needs given her bioprosthetic valve. She is allergic to penicillin but has not ever taken clindamycin to her knowledge. The patient is scheduled to follow-up with the [facility] in the next few weeks. She is wishing to transfer her care primarily to the [place] [facility] once she is released from the [facility] in their TAVR program. 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 Normal [facility] CR - History AND Physicalon 05-28-2024 CR - History & Physical [facility] Cardiac Rehab [address] [place] [address] CR - History Physical MR#: [id number] Acct: [id number] Name: HAYDEE BUSTAMANTE Rep #: [id number] : 1945 78 From: Santos Rubalcava BS, [...] tab PO DAILY supplement 4 tablet) vitamins A,C,I-xhwv-yhxhgf 2,148 2 tab PO BID eye health [...] tabs Instructions: ON HOLD FOR COLONOSCOPY omega 1-uct-oab-fish oil 1,200 mg 1 cap PO DAILY [...] Do you have a Healthcare Power of Electromechanical Equipment Tester?: Yes Living Will: Yes Advance Directives Information [...] 100/54 P (more content not included)... Normal [facility] Cardiac rehabilitation evalu ation reportOrdered By: Santos Guillory on 05-28-2024 Study report [facility] Cardiac Rehab [address] [place] [address] CR - History & Physical MR#: [id number] Acct: [id number] Name: HAYDEE BUSTAMANTE Rep #:[id number] : 1945 78 From: Santos Rubalcava BS, [...] PO DAILY suppl ement 03/19/23 tablet) vitamins A,C,J-eqta-yskgwr 2,148 2 tab PO BID eye heal [...] tabs Instructions: ON HOLD FOR COLONOSCOPY omega 0-wue-txs-fish oil 1,200 mg 1 cap PO DAILY [...] Do you have a Healthcare Power of Electromechanical Equipment Tester?: Yes Living Will: Yes Advance Directives Information [...] for Smoking and (more content not included)... [facility] No Panel InformationOrdered By: Santos Guillory on 05-28-2024 [facility] Cardiac Rehab [address] [place] [id number] CR - Individual Treatment Plan MR#: [id number] Acct: [id number] Name: HAYDEE BUSTAMANTE Rep #:[id number] : 1945 78 From: Santos Rubalcava BS, [...] Referral to Physical Therapy: No Referral to 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 [facility] XR Chest PA and Lateralon Radiology Study observation (narrative) [facility] IMPRESSION: See result. Science Instructor: KRYSTAL Transcribe Date/Time: Apr 30 2024 11:46A Dictated by : ABIGAIL ODOM MD This examination was interpreted and the report reviewed and electronically signed by: ABIGAIL ODOM MD on Apr 30 2024 11:47AM [facility] DIVISION OF RADIOLOGY * * [...] DIVISION OF RADIOLOGY Provider, [facility] Nina Napoles - 04/30/2024 * * *Final Report* * [...] soft tissues: Unremarkable. IMPRESSION IMPRESSION: See result. Science Instructor: KRYSTAL Transcribe Date/Time: Apr 30 2024 11:46A Dictated by : ABIGAIL ODOM MD This examination was interpreted and the report reviewed and electronically signed by: ABIGAIL ODOM MD on Apr 30 2024 11:47AM EST [facility] XR Chest PA and LateralOrder ed By: Ccf Provider on 04-30-2024 [facility] SPECT Heart for infarct W Tc -99m PYP IVOrdered By: Ccf Provider on 03-25-2024 Interpretation and review of laboratory results Abnormal [facility] Radiology Result ACTIONABLE Abnormal [facility] Comment on above: This report contains [...] contact your provider for the next steps. [facility] SPECT Heart for infarct W Tc -99m PYP Komal 03-25-2024 * * *Final Report* * * DATE OF EXAM: Mar 25 2024 12:13PM Deshawn 0847 - [place] CARDIAC AMYLOID SPECT/CT / PROCEDURE REASON: Nonrheumatic aortic valve stenosis * * * * Physician Interpretation * * * * [place] CTA Report: [facility] Date of service: 03/25/2024 11:41:51 AM [...] radiotracer. See administered radiotracer and dose below. [facility] Date of service: 03/25/2024 11:41:51 AM [...] * * * Final * * * Science Instructor: BELEN Transcribe Date/Time: Mar 25 2024 11:41A Dictated by : ROB MARCELO MD This examination was interpreted and the report reviewed and electronically signed by: ROB MARCELO MD on Mar 25 2024 12:19PM [facility] DIVISION OF RADIOLOGY Provider, [facility] - 03/25/2024 * * *Final Report* * * DATE OF EXAM: Mar 25 2024 12:13PM [facility] 0847 - [place] CARDIAC AMYLOID SPECT/CT / PROCEDURE REASON: Nonrheumatic aortic valve stenosis * * * * Physician Interpretation * * * * [place] CTA Report: [facility] Date of service: 03/25/2024 11:41:51 AM [...] See administered radiotracer and dose below. [facility] Date of service: 03/25/2024 11:41:51 AM Ordering [...] * * Final * * * RP Science Instructor: BELEN Transcribe Date/Time: Mar 25 2024 11:41A Dictated by : ROB MARCELO MD This examination was interpreted and the report reviewed and electronically signed by: ROB MARCELO MD on Mar 25 2024 12:19PM EST [facility] Radiology Study observation (narrative) [facility] CREATININE, BLOOD (POC)on Creatinine [Mass/Vol] 0.60 mg/dL Abnormal 0.7 - 1.4 mg/dL [facility] eGFR (POCT) mL/min/1.7 3 m2 [facility] Interpretation and review of laboratory results Abnormal [facility] Location:Radiology [facility], [address] [place] [address], [address] [place] [address] POINT OF CARE [facility] CTA Abdominal vessels and Pe lvis [...] AORTIC DIMENSIONS: AORTIC ROOT: 3.5 cm measured ohwpx-lm-lakhj STJ: 2.5 cm mid ASCENDING THORACIC AORTA: [...] lumbar spine. 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 DIVISION OF RADIOLOGY [facility]/21/2024 * * *Final [...] AORTIC DIMENSIONS: AORTIC ROOT: 3.5 cm measured cvtgb-wl-uulrs STJ: 2.5 cm mid ASCENDING THORACIC AORTA: [...] lumbar spine. 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 [facility] Radiology Study observation (narrative) [facility] Chest vessels W contrast Komal [...] AORTIC DIMENSIONS: AORTIC ROOT: 3.5 cm measured pqtvb-bu-wgfzz STJ: 2.5 cm mid ASCENDING THORACIC AORTA: [...] lumbar spine. 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 DIVISION OF RADIOLOGY Provider, [facility] - 03/21/2024 * * *Final [...] AORTIC DIMENSIONS: AORTIC ROOT: 3.5 cm measured itugx-eq-hijzz STJ: 2.5 cm mid ASCENDING THORACIC AORTA: [...] lumbar spine. Anterolisthesis of L4 over L5 Wood Patternmaker Apprentice (topogram) im (more content not included)... [facility] Radiology Study observation (narrative) [facility] No Panel Informationon 03-21 IMPRESSION: Aortic Annulus and valve anatomy as described above Normal thoracic and abdomiinal aorta.Atherosclerotic changes as in the body of the report.Minimum luminal diameter throughout: 7 mm Science Instructor: PSCB Transcribe Date/Time: Mar 21 2024 11:22A Dictated by : CALIXTO BLACKWOOD MD This examination was interpreted and the report reviewed and electronically signed by: CALITXO BLACKWOOD MD on Mar 21 2024 12:53PM [facility] DIVISION OF RADIOLOGY No Panel InformationOrdered By: Ccf Provider on 03-21-2024 [facility] XR Chest PA and Lateralon IMPRESSION: See result Science Instructor: KRYSTAL Transcribe Date/Time: Mar 21 2024 12:02P Dictated by : JACKELINE SCHULER MD This examination was interpreted and the report reviewed and electronically signed by: JACKELINE SCHULER MD on Mar 21 2024 12:04PM [facility] DIVISION OF RADIOLOGY * * [...] Decreased bone density DIVISION OF RADIOLOGY Provider, [facility] - 03/21/2024 * * *Final [...] Decreased bone density IMPRESSION IMPRESSION: See result Science Instructor: KRYSTAL Transcribe Date/Time: Mar 21 2024 12:02P Dictated by : JACKELINE SCHULER MD This examination was interpreted and the report reviewed and electronically signed by: JACKELINE SCHULER MD on Mar 21 2024 12:04PM EST [facility] Radiology Study observation (narrative) [facility] XR Chest PA and LateralOrder ed By: Ccf Provider on 03-21-2024 [facility] Davy 01-04-2024 CNPN Telephone (AKPRAD) ROBBYHAYDEE L ([id number]) 1945 F [facility] Date Time Provider Department 01/04/24 GENO HART AKPRAD During your visit today, we recorded the [...] (FLONASE) 50 mcg/actuation nasal spray Use 1 [place] in each nostril once daily. - pantoprazole DR (PROTONIX) 40 mg tablet Take 1 tablet by mouth once daily. - vit A,C,A-Ljan-Ncvnqz (OCUVITE PRESERVISION) 2,148 mcg-113 mg-45 mg-17.4mg tab [...] by this patient by: PATIENT Muna Harris (Director Mobile) [employer] for extermination supervisor medications. Problem List As Of Date 12/20 (more content not included)... Normal [facility] HISTOPLASMA AG URINEOrdered By: Cabrera Duggan on 12-21-2023 H. capsulatum Ag (U) [Mass/Vol] ng/mL NINF - 0.2 ng/mL [facility] H. capsulatum Ag IA Ql (U) Negative Negative [facility] Comment on above: Histoplasma galactom adilene antigen, urine test is used as an aid in diagnosing histoplasmosis. A negative result cannot rule out infection. Low positive results may at times be due to cross-reactivity with Blastomyces, Talaromyces marneffei, Paracoccidioides, and some Wendy species. Clinical radiological, and epidemiological correlation is required. Interpretation and review of laboratory results Normal [facility] ITRACONAZOLE BLOODOrdered By : Elvira Cronin on 12-21-2023 Hydroxyitraconazole 1.1 ug/mL [facility] Comment on above: Ranges are based on [...] of Aspergillosis and Candidiasis and consultation from [facility]'s Department of Infectious Disease. Reference ranges and high/low indicator flags are provided as general guidelines only. The treating physician must determine appropriate target levels/dosing based on the specific clinical situation. This test was developed, and its performance characteristics determined by the [facility] Department of Pathology and Laboratory Medicine. It has not been cleared or approved by the FDA. The [facility] Department of Pathology and Laboratory Medicine is regulated under CLIA as qualified to perform high-complexity testing. This test is used for clinical purposes. It should not be regarded as investigational or for research. Itraconazole 0.8 ug/mL 0.6 - 2.9 ug/mL [facility] Hepatic function 2000 panelo n 12-20-2023 Albumin [Mass/Vol] 3.7 g/dL Low 3.9 - 4.9 g/dL [facility] ALP [Catalytic activity/Vol] 95 U/L 34 - 123 U/L [facility] ALT [Catalytic activity/Vol] 19 U/L 7 - 38 U/L [facility] AST [Catalytic activity/Vol] 20 U/L 13 - 35 U/L [facility] Bilirubin [Mass/Vol] 0.6 mg/dL 0.2 - 1 .3 mg/dL [facility] Bilirubin.conjugated [Mass/Vol] 0.2 mg/dL High NINF - 0.2 mg/dL [facility] Interpretation and review of laboratory results Abnormal [facility] Protein [Mass/Vol] 7.0 g/dL 6.3 - 8.0 g/dL [facility] CBC W Auto Differential pane l (Bld)on 10-11-2023 Basophils (Bld) [#/Vol] 0.05 10*3/uL [facility] Basophils/100 WBC (Bld) 0.5 % [facility] Differential cell count method Nom (Bld) Auto [facility] Eosinophils (Bld) [#/Vol] 0.12 10*3/uL [facility] Eosinophils/100 WBC (Bld) 1.2 % [facility] Erythrocyte distribution width (RBC) [Ratio] 16.8 % High 11.5 - 15.0 % [facility] Hematocrit (Bld) [Volume fraction] 32.4 % Low 36.0 - 46.0 % [facility] Hemoglobin (Bld) [Mass/Vol] 10.1 g/dL Low 11.5 - 15.5 g/dL [facility] Immature granulocytes (Bld) [#/Vol] 0.05 10*3/uL [facility] Immature granulocytes/100 WBC (Bld) 0.5 % [facility] Interpretation and review of laboratory results Abnormal [facility] Lymphocytes (Bld) [#/Vol] 1.31 10*3/uL [facility] Lymphocytes/100 WBC (Bld) 13.3 % [facility] MCH (RBC) [Entitic mass] 26.9 pg 26.0 - 34.0 pg [facility] MCHC (RBC) [Mass/Vol] 31.2 g/dL 30.5 - 36.0 g/dL [facility] MCV (RBC) [Entitic vol] 86.4 fL 80.0 - 100.0 fL [facility] Monocytes (Bld) [#/Vol] 1.00 10*3/uL High [facility] Monocytes/100 WBC (Bld) 10.2 % [facility] Neutrophils (Bld) [#/Vol] 7.32 10*3/uL [facility] Neutrophils/100 WBC (Bld) 74.3 % [facility] Nucleated RBC (Bld) [#/Vol] [facility] Nucleated RBC/100 WBC (Bld) [Ratio] 0.0 % /100 WBC [facility] Platelet mean volume (Bld) [Entitic vol] 11.6 fL 9.0 - 12.7 fL [facility] Platelets (Bld) [#/Vol] 349 10*3/uL [facility] RBC (Bld) [#/Vol] 3.75 10*6/uL Low 3.90 - 5.20 m/uL [facility] WBC (Bld) [#/Vol] 9.85 10*3/uL [facility] Comprehensive metabolic 2000 panelon 10-11-2023 Albumin [Mass/Vol] 3.9 g/dL 3.9 - 4.9 g/dL [facility] ALP [Catalytic activity/Vol] 111 U/L 34 - 123 U/L [facility] ALT [Catalytic activity/Vol] 22 U/L 7 - 38 U/L [facility] Anion gap [Moles/Vol] 11 mmol/L 8 - 15 mmol/L [facility] AST [Catalytic activity/Vol] 23 U/L 13 - 35 U/L [facility] Bilirubin [Mass/Vol] 0.3 mg/dL 0.2 - 1 .3 mg/dL [facility] Calcium [Mass/Vol] 9.4 mg/dL 8.5 - 10. 2 mg/dL [facility] Chloride [Moles/Vol] 99 mmol/L 98 - 10 7 mmol/L [facility] CO2 [Moles/Vol] 24 mmol/L 22 - 30 mmol/L [facility] Creatinine [Mass/Vol] 0.59 mg/dL 0.58 - 0.96 mg/dL [facility] GFR/1.73 sq M.predicted among non-blacks MDRD (S/P/Bld) [Vol rate/Area] 94 mL/min/{1.73_m2} - PINF [facility] Comment on above: Estimated Glomerular Filtration [...] [Mass/Vol] 76 mg/dL 74 - 99 mg/dL [facility] Comment on above: The [place] Diabete s Association (ADA) provides guidance for [...] Standards of Medical Care in Diabetes 2016, [place] [employer]. Diabetes Care. 2016.39(Suppl 1). Interpretation and review of laboratory results Abnormal [facility] Potassium [Moles/Vol] 5.1 mmol/L 3.7 - 5.1 mmol/L [facility] Protein [Mass/Vol] 7.6 g/dL 6.3 - 8.0 g/dL [facility] Sodium [Moles/Vol] 134 mmol/L Low 136 - 144 mmol/L [facility] Urea nitrogen [Mass/Vol] 26 mg/dL High 7 - 21 mg/dL [facility] HISTOPLASMA AB CFon 09-02-19 24 H. capsulatum mycelial phase Ab CF (S) [Titer] <1:8 [facility] Comment on above: INTERPRETIVE INFORMA TION: Histoplasma Mycelia Antibodies by CF A titer of 1:8 or greater is generally considered presumptive evidence of histoplasmosis. A titer of 1:32 or greater or rising titers indicate strong presumptive evidence of histoplasmosis. Cross reactions, usually at lower titers, may occur with other fungal diseases. H. capsulatum yeast phase Ab CF (S) [Titer] <1:8 [facility] Comment on above: INTERPRETIVE INFORMA TION: Histoplasma Yeast Antibodies by CF A titer of 1:8 or greater is generally considered presumptive evidence of histoplasmosis. A titer of 1:32 or greater or rising titers indicate strong presumptive evidence of histoplasmosis. Cross reactions, usually at lower titers, may occur with other fungal diseases. Performed By: [employer] [address] [place] [id number] Adjutant General: Ernie Issa MD, PhD CLIA Number: [id number] [facility] HISTOPLASMA AG URINEOrdered By: Maricarmen Call on 08-31-2023 H. capsulatum Ag (U) [Mass/Vol] 0.4 ng/mL High NINF - 0.2 ng/mL [facility] H. capsulatum Ag IA Ql (U) Positive Abnormal Negative [facility] Comment on above: Histoplasma galactom adilene antigen, urine test is used as an aid in diagnosing histoplasmosis. A negative result cannot rule out infection. Low positive results may at times be due to cross-reactivity with Blastomyces, Talaromyces marneffei, Paracoccidioides, and some Wendy species. Clinical radiological, and epidemiological correlation is required. Interpretation and review of laboratory results Abnormal [facility] ITRACONAZOLE BLOODOrdered By : Elvira Cronin on 08-31-2023 Hydroxyitraconazole 2.4 ug/mL [facility] Comment on above: Ranges are based on [...] of Aspergillosis and Candidiasis and consultation from [facility]'s Department of Infectious Disease. Reference ranges and high/low indicator flags are provided as general guidelines only. The treating physician must determine appropriate target levels/dosing based on the specific clinical situation. This test was developed and its performance characteristics determined by [facility]'s [place] [facility] Pathology and Laboratory Medicine [place] [facility] It has not been cleared or approved by the FDA. [facility] is regulated under CLIA as qualified to perform high-complexity testing. This test is used for clinical purposes. It should not be regarded as investigational or for research. Itraconazole 1.3 ug/mL 0.6 - 2.9 ug/mL [facility] CNOVon 08-27-2023 CNOV Office Visit (CARMED ) HAYDEE BUSTAMANTE ([id number]) 1945 F T Date Time Provider Department 08/27/23 8:20 AM SIDDHARTH WILLIAMRADHIKA ADAMS During your visit today, we recorded the following information about you: Pulse Blood pressure Weight Height 81/minute 116/68 58.1 kg 1.6 m William Messina, 08/27/2023 2:47 PM Signed [facility] CARDIOLOGY [facility] OUTPATIENT VISIT DATE August 27, 2023 PRIMARY CARE PHYSICIAN: Claudine Durán [address] [place] [address] HISTORY OF PRESENT ILLNESS: Ms. Bustamante is [...] DVT, recurrent, lower extremity, acute ([facility]) 12/10/2014 Esophageal reflux Hiatal hernia 02/25/2018 Hypertension Lung nodule Personal history of unspecified urinary disorder Rheumatoid arthritis involving multiple sites with positive rheumatoid factor ([facility]) 03/07/2015 Dr. Hurley ([facility]) (more content not included)... [facility] 08-27-2023 [facility] Telephone (ANGIE) ROBBYHAYDEE Cabrera ([id number]) 1945 F T Date Time Provider Department [...] (FLONASE) 50 mcg/actuation nasal spray Use 1 [place] in each nostril once daily. - pantoprazole DR (PROTONIX) 40 mg tablet Take 1 tablet by mouth once daily. 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 Normal [facility] CBC W Auto Differential pane l (Bld)on 08-22-2023 Basophils (Bld) [#/Vol] 0.04 10*3/uL [facility] Basophils/100 WBC (Bld) 0.5 % [facility] Differential cell count method Nom (Bld) Auto [facility] Eosinophils (Bld) [#/Vol] 0.08 10*3/uL [facility] Eosinophils/100 WBC (Bld) 1.0 % [facility] Erythrocyte distribution width (RBC) [Ratio] 17.4 % High 11.5 - 15.0 % [facility] Hematocrit (Bld) [Volume fraction] 28.5 % Low 36.0 - 46.0 % [facility] Hemoglobin (Bld) [Mass/Vol] 9.1 g/dL Low 11.5 - 15.5 g/dL [facility] Immature granulocytes (Bld) [#/Vol] 0.04 10*3/uL [facility] Immature granulocytes/100 WBC (Bld) 0.5 % [facility] Interpretation and review of laboratory results Abnormal [facility] Lymphocytes (Bld) [#/Vol] 0.93 10*3/uL Low [facility] Lymphocytes/100 WBC (Bld) 11.6 % [facility] MCH (RBC) [Entitic mass] 29.0 pg 26.0 - 34.0 pg [facility] MCHC (RBC) [Mass/Vol] 31.9 g/dL 30.5 - 36.0 g/dL [facility] MCV (RBC) [Entitic vol] 90.8 fL 80.0 - 100.0 fL [facility] Monocytes (Bld) [#/Vol] 0.72 10*3/uL [facility] Monocytes/100 WBC (Bld) 9.0 % [facility] Neutrophils (Bld) [#/Vol] 6.19 10*3/uL [facility] Neutrophils/100 WBC (Bld) 77.4 % [facility] Nucleated RBC (Bld) [#/Vol] [facility] Nucleated RBC/100 WBC (Bld) [Ratio] 0.0 % /100 WBC [facility] Platelet mean volume (Bld) [Entitic vol] 10.8 fL 9.0 - 12.7 fL [facility] Platelets (Bld) [#/Vol] 293 10*3/uL [facility] RBC (Bld) [#/Vol] 3.14 10*6/uL Low 3.90 - 5.20 m/uL [facility] WBC (Bld) [#/Vol] 8.00 10*3/uL [facility] Comprehensive metabolic 2000 panelOrdered By: Adri Cabrera on 08-22-2023 Albumin [Mass/Vol] 3.2 g/dL Low 3.9 - 4.9 g/dL [facility] ALP [Catalytic activity/Vol] 97 U/L 34 - 123 U/L [facility] ALT [Catalytic activity/Vol] 20 U/L 7 - 38 U/L [facility] Anion gap [Moles/Vol] 10 mmol/L 8 - 15 mmol/L [facility] AST [Catalytic activity/Vol] 25 U/L 13 - 35 U/L [facility] Bilirubin [Mass/Vol] 0.4 mg/dL 0.2 - 1 .3 mg/dL [facility] Calcium [Mass/Vol] 8.5 mg/dL 8.5 - 10. 2 mg/dL [facility] Chloride [Moles/Vol] 103 mmol/L 98 - 10 7 mmol/L [facility] CO2 [Moles/Vol] 26 mmol/L 22 - 30 mmol/L [facility] Creatinine [Mass/Vol] 0.55 mg/dL Low 0.58 - 0.96 mg/dL [facility] GFR/1.73 sq M.predicted among non-blacks MDRD (S/P/Bld) [Vol rate/Area] 95 mL/min/{1.73_m2} - PINF [facility] Comment on above: Estimated Glomerular Filtration [...] [Mass/Vol] 82 mg/dL 74 - 99 mg/dL [facility] Comment on above: The [place] Diabete s Association (ADA) provides guidance for [...] Standards of Medical Care in Diabetes 2016, [place] [employer]. Diabetes Care. 2016.39(Suppl 1). Interpretation and review of laboratory results Abnormal [facility] Potassium [Moles/Vol] 3.3 mmol/L Low 3.7 - 5.1 mmol/L [facility] Protein [Mass/Vol] 5.8 g/dL Low 6.3 - 8.0 g/dL [facility] Sodium [Moles/Vol] 139 mmol/L 136 - 144 mmol/L [facility] Urea nitrogen [Mass/Vol] 16 mg/dL 7 - 21 mg/dL [facility] INR (POC)on 08-22-2023 INR Coag (PPP) [Relative time] 1.1 {INR} 0.8 - 1.2 [facility] Internal Quality Check Acceptable [facility] Location:[facility], [address] [place] [address], [place], [place], [id number] [place] [address] POINT OF CARE [facility] No Panel InformationOrdered By: Zaynab Pina on 05-31-2023 29.8 SECONDS 11.7-14.9 [facility] 2.9 [facility] Absolute lymphocyte countOrd ered By: Zaynab Pina on 05-29-2023 Lymphocytes Auto (Unsp spec) [#/Vol] 1.06 10*3/uL 0.83-4.51 [facility] Automated lymphocyte count a s percentage of total leukocytesOrdered By: Zaynab Pina on 05-29-2023 Lymphocytes/100 WBC Auto (Unsp spec) 17.1 % 19-41 [facility] Basophil percentageOrdered B y: Zaynab Pina on 05-29-2023 Basophil percentage 9.8 g/dL 12.0-15.0 [facility] Basophil percentage 80 mg/dL 74-106 [facility] Basophil percentage 139 mmol/L 136-145 [facility] Basophil percentage 3.4 mmol/L 3.5-5.1 [facility] Basophil percentage 106 mmol/L 98-107 [facility] Basophils (Bld) [#/Vol] 6.2 10*3/uL 4.4-11.0 [facility] Basophils (Bld) [#/Vol] 4.1 10*3/uL 2.0-7.7 [facility] Basophils/100 WBC (Bld) 66.4 % 47-70 [facility] Basophils/100 WBC (Bld) 12.3 % 0-10 [facility] Basophils/100 WBC (Bld) 3.2 % 0-5 [facility] Basophils/100 WBC (Bld) 0.5 % 0-1 [facility] Determination of erythrocyte mean corpuscular volume (MCV)Ordered By: Zaynab Pina on 05-29-2023 MCV (RBC) [Entitic vol] 81.1 fL 81-99 [facility] Erythrocyte distribution wid th ratioOrdered By: Zaynab Pina on 05-29-2023 Erythrocyte distribution width (RBC) [Ratio] 17.6 % 11.6-14.6 [facility] Erythrocyte distribution wid th standard deviationOrdered By: Zaynab Pina on 05-29-2023 Erythrocyte distribution width (RBC) [Entitic vol] 52.1 fL 35.1-43.9 [facility] Hematocrit Auto (Bld) [Volum e fraction]Ordered By: Zaynab Pina on 05-29-2023 Hematocrit (Bld) [Volume fraction] 30.8 % 37-47 [facility] Immature granulocytes/100 WB C Auto (Bld)Ordered By: Zaynab Pina on 05-29-2023 Immature granulocytes/100 WBC (Bld) 0.500 % 0.0-0.9 [facility] No Panel InformationOrdered By: Zaynab Pina on 05-29-2023 25.8 pg 27.0-32.0 [facility] 31.8 g/dL 32-36 [facility] 194 K/mm3 150-450 [facility] 11.0 fl 6.2-12.0 [facility] 0 % 0-5 [facility] 116 mL/min >60 [facility] 141 mL/min >60 [facility] 29.6 RATIO 10-20 [facility] 28.0 mmol/L 21.0-32.0 [facility] RBC Auto (Bld) [#/Vol]Ordere d By: Zaynab Pina on 05-29-2023 RBC (Bld) [#/Vol] 3.80 10*6/uL 4.2-5.4 [facility] Serum or plasma calcium monica urement (mass/volume)Ordered By: Zaynab Pina on 05-29-2023 Calcium [Mass/Vol] 8.4 mg/dL 8.5-10.1 [facility] Serum or plasma creatinine m easurement (mass/volume)Ordered By: Zaynab Pina on 05-29-2023 Creatinine [Mass/Vol] 0.54 mg/dL 0.55-1.02 [facility] Serum or plasma urea nitroge n measurement (mass/volume)Ordered By: Zaynab Pina on 05-29-2023 Urea nitrogen [Mass/Vol] 16 mg/dL 7-18 [facility] Thin prep Papanicolaou smear with manual screeningOrdered By: Zaynab Pina on 05-29-2023 Thin prep Papanicolaou smear with manual screening 5 5-15 [facility] No Panel InformationOrdered By: Zaynab Pina on 05-28-2023 30.6 SECONDS 11.7-14.9 [facility] 3.0 [facility] Capillary blood internationa l normalized ratio (INR)Ordered By: Zaynab Pina on 05-24-2023 INR Coag (BldC) [Relative time] 1.9 [facility] Whole blood prothrombin time Ordered By: Zaynab Pina on 05-24-2023 PT Coag (Bld) [Time] 20.2 s 11.7-14.9 [facility] Capillary blood internationa l normalized ratio (INR)Ordered By: Zaynab Pina on 05-21-2023 INR Coag (BldC) [Relative time] 2.8 [facility] Whole blood prothrombin time Ordered By: Zaynab Pina on 05-21-2023 PT Coag (Bld) [Time] 28.8 s 11.7-14.9 [facility] Capillary blood internationa l normalized ratio (INR)Ordered By: Zaynab Pina on 05-17-2023 INR Coag (BldC) [Relative time] 3.0 [facility] Whole blood prothrombin time Ordered By: Zaynab Pina on 05-17-2023 PT Coag (Bld) [Time] 30.2 s 11.7-14.9 [facility] Absolute lymphocyte countOrd ered By: Zaynab Pina on 05-15-2023 Lymphocytes Auto (Unsp spec) [#/Vol] 1.62 10*3/uL 0.83-4.51 [facility] Automated lymphocyte count a s percentage of total leukocytesOrdered By: Zaynab Pina on 05-15-2023 Lymphocytes/100 WBC Auto (Unsp spec) 18.8 % 19-41 [facility] Basophil percentageOrdered B y: Claudiotanjoesph Pina on 05-15-2023 Basophil percentage 10.0 g/dL 12.0-15.0 [facility] Basophil percentage 71 mg/dL 74-106 [facility] Basophil percentage 137 mmol/L 136-145 [facility] Basophil percentage 4.1 mmol/L 3.5-5.1 [facility] Basophil percentage 103 mmol/L 98-107 [facility] Basophils (Bld) [#/Vol] 8.6 10*3/uL 4.4-11.0 [facility] Basophils (Bld) [#/Vol] 5.6 10*3/uL 2.0-7.7 [facility] Basophils/100 WBC (Bld) 64.8 % 47-70 [facility] Basophils/100 WBC (Bld) 11.8 % 0-10 [facility] Basophils/100 WBC (Bld) 3.3 % 0-5 [facility] Basophils/100 WBC (Bld) 0.7 % 0-1 [facility] Determination of erythrocyte mean corpuscular volume (MCV)Ordered By: Zaynab Pina on 05-15-2023 MCV (RBC) [Entitic vol] 82.7 fL 81-99 [facility] Erythrocyte distribution wid th ratioOrdered By: Zaynab Pina on 05-15-2023 Erythrocyte distribution width (RBC) [Ratio] 18.1 % 11.6-14.6 [facility] Erythrocyte distribution wid th standard deviationOrdered By: Zaynab Pina on 05-15-2023 Erythrocyte distribution width (RBC) [Entitic vol] 54.5 fL 35.1-43.9 [facility] Hematocrit Auto (Bld) [Volum e fraction]Ordered By: Zaynab Pina on 05-15-2023 Hematocrit (Bld) [Volume fraction] 32.0 % 37-47 [facility] Immature granulocytes/100 WB C Auto (Bld)Ordered By: Zaynab Pina on 05-15-2023 Immature granulocytes/100 WBC (Bld) 0.600 % 0.0-0.9 [facility] No Panel InformationOrdered By: Zaynab Pina on 05-15-2023 25.8 pg 27.0-32.0 [facility] 31.3 g/dL 32-36 [facility] 322 K/mm3 150-450 [facility] 10.2 fl 6.2-12.0 [facility] 0 % 0-5 [facility] 96 mL/min >60 [facility] 117 mL/min >60 [facility] 20.4 RATIO 10-20 [facility] 27.0 mmol/L 21.0-32.0 [facility] RBC Auto (Bld) [#/Vol]Ordere d By: Zaynab Pina on 05-15-2023 RBC (Bld) [#/Vol] 3.87 10*6/uL 4.2-5.4 [facility] Serum or plasma calcium monica urement (mass/volume)Ordered By: Zaynab Pina on 05-15-2023 Calcium [Mass/Vol] 9.0 mg/dL 8.5-10.1 [facility] Serum or plasma creatinine m easurement (mass/volume)Ordered By: Zaynab Pina on 05-15-2023 Creatinine [Mass/Vol] 0.64 mg/dL 0.55-1.02 [facility] Serum or plasma urea nitroge n measurement (mass/volume)Ordered By: Zaynab Pina on 05-15-2023 Urea nitrogen [Mass/Vol] 13 mg/dL 7-18 [facility] Thin prep Papanicolaou smear with manual screeningOrdered By: Zaynab Pina on 05-15-2023 Thin prep Papanicolaou smear with manual screening 7 5-15 [facility] Capillary blood internationa l normalized ratio (INR)Ordered By: Zaynab Pina on 05-14-2023 INR Coag (BldC) [Relative time] 3.0 [facility] Comment on above: Critical Value > 4.0 Whole blood prothrombin time Ordered By: Zaynab Pina on 05-14-2023 PT Coag (Bld) [Time] 30.4 s 11.7-14.9 [facility] Capillary blood internationa l normalized ratio (INR)Ordered By: Zaynab Pina on 05-10-2023 INR Coag (BldC) [Relative time] 2.8 [facility] Comment on above: Critical Value > 4.0 Whole blood prothrombin time Ordered By: Zaynab Pina on 05-10-2023 PT Coag (Bld) [Time] 28.1 s 11.7-14.9 [facility] Capillary blood internationa l normalized ratio (INR)Ordered By: Zaynab Pina on 05-07-2023 INR Coag (BldC) [Relative time] 2.2 [facility] Comment on above: Critical Value > 4.0 Whole blood prothrombin time Ordered By: Zaynab Pina on 05-07-2023 PT Coag (Bld) [Time] 24.4 s 11.7-14.9 [facility] Laboratory - CoagulationOrde red By: Zaynab Pina on 05-03-2023 INR Coag (Bld) [Relative time] 2.1 {INR} [facility] PT Coag (PPP) [Time] 23.2 s 11.7-14.9 [facility] No Panel InformationOrdered By: Zaynab Pina on 05-03-2023 23.2 SECONDS 11.7-14.9 [facility] 2.1 [facility] Absolute lymphocyte countOrd ered By: Zaynab Pina on 05-01-2023 Lymphocytes Auto (Unsp spec) [#/Vol] 1.74 10*3/uL 0.83-4.51 [facility] Automated lymphocyte count a s percentage of total leukocytesOrdered By: Zaynab Pina on 05-01-2023 Lymphocytes/100 WBC Auto (Unsp spec) 23.1 % 19-41 [facility] Basophil percentageOrdered B y: Zaynab Pina on 05-01-2023 Basophil percentage 10.7 g/dL 12.0-15.0 [facility] Basophil percentage 86 mg/dL 74-106 [facility] Basophil percentage 5.8 g/dL 6.4-8.2 [facility] Basophil percentage 0.60 mg/dL 0.20-1.00 [facility] Basophil percentage 137 mmol/L 136-145 [facility] Basophil percentage 3.7 mmol/L 3.5-5.1 [facility] Basophil percentage 105 mmol/L 98-107 [facility] Basophils (Bld) [#/Vol] 7.5 10*3/uL 4.4-11.0 [facility] Basophils (Bld) [#/Vol] 4.7 10*3/uL 2.0-7.7 [facility] Basophils/100 WBC (Bld) 0.7 % 0-1 [facility] Basophils/100 WBC (Bld) 62.4 % 47-70 [facility] Basophils/100 WBC (Bld) 12.0 % 0-10 [facility] Basophils/100 WBC (Bld) 1.3 % 0-5 [facility] Bilirubin [Mass/Vol] 0.60 mg/dL 0.20-1.00 [facility] Comment on above: For patients on eltr ombopag therapy, use of Dimension [place] TBIL is not recommended. Chloride [Moles/Vol] 105 mmol/L 98-107 [facility] Eosinophils/100 WBC (Bld) 1.3 % 0-5 [facility] Glucose [Mass/Vol] 86 mg/dL 74-106 [facility] Hemoglobin (Bld) [Mass/Vol] 10.7 g/dL 12.0-15.0 [facility] Monocytes/100 WBC (Bld) 12.0 % 0-10 [facility] Neutrophils (Bld) [#/Vol] 4.7 10*3/uL 2.0-7.7 [facility] Neutrophils/100 WBC (Bld) 62.4 % 47-70 [facility] Potassium [Moles/Vol] 3.7 mmol/L 3.5-5.1 [facility] Protein [Mass/Vol] 5.8 g/dL 6.4-8.2 [facility] Sodium [Moles/Vol] 137 mmol/L 136-145 [facility] WBC (Bld) [#/Vol] 7.5 10*3/uL 4.4-11.0 [facility] Determination of erythrocyte mean corpuscular volume (MCV)Ordered By: Zaynab Pina on 05-01-2023 MCV (RBC) [Entitic vol] 84.2 fL 81-99 [facility] Erythrocyte distribution wid th ratioOrdered By: [facility] Yovani on 05-01-2023 Erythrocyte distribution width (RBC) [Ratio] 19.4 % 11.6-14.6 [facility] Erythrocyte distribution wid th standard deviationOrdered By: [facility] on 05-01-2023 Erythrocyte distribution width (RBC) [Entitic vol] 60.2 fL 35.1-43.9 [facility] Hematocrit Auto (Bld) [Volum e fraction]Ordered By: Claudiomarydeljoesph Pina on 05-01-2023 Hematocrit (Bld) [Volume fraction] 33.1 % 37-47 [facility] Immature granulocytes/100 WB C Auto (Bld)Ordered By: Claudiomarydeljoesph Pina on 05-01-2023 Immature granulocytes/100 WBC (Bld) 0.500 % 0.0-0.9 [facility] Comment on above: IG% - Immature Granu locytes (promyelocytes, myelocytes and metamyelocytes) > 1% indicates that a LEFT SHIFT is Present. Laboratory - Chemistry and C hemistry - challengeOrdered By: Zaynab Pina on 05-01-2023 Albumin/Globulin [Mass ratio] 0.9 {ratio} 0.9-2.4 [facility] ALP [Catalytic activity/Vol] 93 U/L 45-117 [facility] ALT [Catalytic activity/Vol] 35 U/L 13-56 [facility] CO2 [Moles/Vol] 27.0 mmol/L 21.0-32.0 [facility] Globulin (S) [Mass/Vol] 3.1 g/dL 2.2-4.2 [facility] Urea nitrogen/Creatinine [Mass ratio] 56.7 mg/mg 10-20 [facility] Laboratory - Hematology and Cell countsOrdered By: Zaynab Pina on 05-01-2023 MCH (RBC) [Entitic mass] 27.2 pg 27.0-32.0 [facility] MCHC (RBC) [Mass/Vol] 32.3 g/dL 32-36 [facility] Nucleated RBC/100 WBC (Bld) [Ratio] 0 % 0-5 [facility] Platelet mean volume (Bld) [Entitic vol] 10.2 fL 6.2-12.0 [facility] Platelets (Bld) [#/Vol] 223 10*3/uL 150-450 [facility] No Panel InformationOrdered By: Zaynab Pina on 05-01-2023 Estimated GFR (MDRD) Amer 163 mL/min >60 [facility] Comment on above: GFR Calc Estimated GFR (MDRD) Non-Af Amer 135 mL/min >60 [facility] Comment on above: Non- GFR Calc Vitamin D 25-Hydroxy 42.6 ng/mL [facility] Comment on above: Vitamin D 25(OH) Sta tus Range Deficiency <20 ng/mL (50nmol/L) Insufficiency 20 - 30 ng/mL (50 - 75 nmol/L) Sufficiency 30 - 100 ng/mL (75 - 250 nmol/L) Toxicity >100 ng/mL (>250 nmol/L) 27.2 pg 27.0-32.0 [facility] 32.3 g/dL 32-36 [facility] 223 K/mm3 150-450 [facility] 10.2 fl 6.2-12.0 [facility] 0 % 0-5 [facility] 135 mL/min >60 [facility] 163 mL/min >60 [facility] 56.7 RATIO 10-20 [facility] 3.1 g/dL 2.2-4.2 [facility] 0.9 RATIO 0.9-2.4 [facility] 93 U/L 45-117 [facility] 35 U/L 13-56 [facility] 27.0 mmol/L 21.0-32.0 [facility] 42.6 ng/mL [facility] RBC Auto (Bld) [#/Vol]Ordere d By: Zaynab Pina on 05-01-2023 RBC (Bld) [#/Vol] 3.93 10*6/uL 4.2-5.4 [facility] Serum or plasma calcium monica urement (mass/volume)Ordered By: Zaynab Pina on 05-01-2023 Calcium [Mass/Vol] 8.6 mg/dL 8.5-10.1 [facility] Serum or plasma creatinine m easurement (mass/volume)Ordered By: Zaynab Pina on 05-01-2023 Creatinine [Mass/Vol] 0.48 mg/dL 0.55-1.02 [facility] Comment on above: The validity of the calculated GFR & GFRAA in patients over 70 years has not been determined. Clinical correlation is essential. Serum or plasma urea nitroge n measurement (mass/volume)Ordered By: Zaynab Pina on 05-01-2023 Urea nitrogen [Mass/Vol] 27 mg/dL 7-18 [facility] Thin prep Papanicolaou smear with manual screeningOrdered By: Zaynab Pina on 05-01-2023 Thin prep Papanicolaou smear with manual screening 2.7 g/dL 3.2-5.0 [facility] Thin prep Papanicolaou smear with manual screening 23 U/L 15-37 [facility] Thin prep Papanicolaou smear with manual screening 5 5-15 [facility] Laboratory - CoagulationOrde red By: Edinson Irvin on 04-30-2023 INR Coag (Bld) [Relative time] 2.2 {INR} [facility] PT Coag (PPP) [Time] 24.5 s 11.7-14.9 [facility] No Panel InformationOrdered By: Edinson Irvin on 04-30-2023 24.5 SECONDS 11.7-14.9 [facility] 2.2 [facility] Basophil percentageOrdered B y: Edinson Irvin on 04-27-2023 Basophil percentage 82 mg/dL 74-106 [facility] Basophil percentage 136 mmol/L 136-145 [facility] Basophil percentage 3.6 mmol/L 3.5-5.1 [facility] Basophil percentage 101 mmol/L 98-107 [facility] Chloride [Moles/Vol] 101 mmol/L 98-107 [facility] Glucose [Mass/Vol] 82 mg/dL 74-106 [facility] Potassium [Moles/Vol] 3.6 mmol/L 3.5-5.1 [facility] Sodium [Moles/Vol] 136 mmol/L 136-145 [facility] Laboratory - Chemistry and C hemistry - challengeOrdered By: Edinson Irvin on 04-27-2023 CO2 [Moles/Vol] 28.0 mmol/L 21.0-32.0 [facility] Urea nitrogen/Creatinine [Mass ratio] 54.9 mg/mg 10-20 [facility] No Panel InformationOrdered By: Edinson Irvin on 04-27-2023 Estimated Creatinine Clearance Calc 50.26 ml/min [facility] Estimated GFR (MDRD) Amer 151 mL/min >60 [facility] Comment on above: GFR Calc Estimated GFR (MDRD) Non-Af Amer 125 mL/min >60 [facility] Comment on above: Non- GFR Calc 125 mL/min >60 [facility] 151 mL/min >60 [facility] 50.26 ml/min [facility] 54.9 RATIO 10-20 [facility] 28.0 mmol/L 21.0-32.0 [facility] Serum or plasma calcium monica urement (mass/volume)Ordered By: Edinson Irvin on 04-27-2023 Calcium [Mass/Vol] 8.4 mg/dL 8.5-10.1 [facility] Serum or plasma creatinine m easurement (mass/volume)Ordered By: Edinson Irvin on 04-27-2023 Creatinine [Mass/Vol] 0.51 mg/dL 0.55-1.02 [facility] Comment on above: The validity of the calculated GFR & GFRAA in patients over 70 years has not been determined. Clinical correlation is essential. Serum or plasma urea nitroge n measurement (mass/volume)Ordered By: Edinson Irvin on 04-27-2023 Urea nitrogen [Mass/Vol] 28 mg/dL 7-18 [facility] Thin prep Papanicolaou smear with manual screeningOrdered By: Edinson Irvin on 04-27-2023 Thin prep Papanicolaou smear with manual screening 7 5-15 [facility] Laboratory - CoagulationOrde red By: Edinson Irvin on 04-16-2023 INR Coag (Bld) [Relative time] 1.2 {INR} [facility] PT Coag (PPP) [Time] 14.8 s 11.7-14.9 [facility] Basophil percentageOrdered B y: Edinson Irvin on 04-13-2023 Chloride [Moles/Vol] 104 mmol/L 98-107 [facility] Glucose [Mass/Vol] 89 mg/dL 74-106 [facility] Potassium [Moles/Vol] 3.5 mmol/L 3.5-5.1 [facility] Sodium [Moles/Vol] 136 mmol/L 136-145 [facility] Laboratory - Chemistry and C hemistry - challengeOrdered By: Edinson Irvin on 04-13-2023 CO2 [Moles/Vol] 28.0 mmol/L 21.0-32.0 [facility] Urea nitrogen/Creatinine [Mass ratio] 38.2 mg/mg 10- [facility] No Panel InformationOrdered By: Edinson Irvin on 04-13-2023 Estimated Creatinine Clearance Calc 50.26 ml/min [facility] Estimated GFR (MDRD) Amer 147 mL/min >60 [facility] Comment on above: GFR Calc Estimated GFR (MDRD) Non-Af Amer 121 mL/min >60 [facility] Comment on above: Non- GFR Calc Respiratory pathogens detect ion panel by molecular detection methodOrdered By: Edinson Irvin on 04-13-2023 Respiratory pathogens DNA and RNA panel GWEN+probe (Resp) [facility] Respiratory pathogens DNA and RNA panel GWEN+probe (Resp) [facility] Serum or plasma calcium monica urement (mass/volume)Ordered By: Edinson Irvin on 04-13-2023 Calcium [Mass/Vol] 7.8 mg/dL 8.5-10.1 [facility] Serum or plasma creatinine m easurement (mass/volume)Ordered By: Edinson Irvin on 04-13-2023 Creatinine [Mass/Vol] 0.52 mg/dL 0.55-1.02 [facility] Comment on above: The validity of the calculated GFR & GFRAA in patients over 70 years has not been determined. Clinical correlation is essential. Serum or plasma urea nitroge n measurement (mass/volume)Ordered By: Edinson Irvin on 04-13-2023 Urea nitrogen [Mass/Vol] 20 mg/dL 7-18 [facility] Thin prep Papanicolaou smear with manual screeningOrdered By: Edinson Irvin on 04-13-2023 Thin prep Papanicolaou smear with manual screening 4 5-15 [facility] Absolute lymphocyte countOrd ered By: Edinson Irvin on 04-12-2023 Lymphocytes Auto (Unsp spec) [#/Vol] 1.14 10*3/uL 0.83-4.51 [facility] Automated lymphocyte count a s percentage of total leukocytesOrdered By: Edinson Irvin on 04-12-2023 Lymphocytes/100 WBC Auto (Unsp spec) 27.6 % 19-41 [facility] Basophil percentageOrdered B y: Edinson Irvin on 04-12-2023 Basophil percentage 10.1 g/dL 12.0-15.0 [facility] Basophils (Bld) [#/Vol] 4.1 10*3/uL 4.4-11.0 [facility] Basophils (Bld) [#/Vol] 2.1 10*3/uL 2.0-7.7 [facility] Basophils/100 WBC (Bld) 1.2 % 0-1 [facility] Basophils/100 WBC (Bld) 50.6 % 47-70 [facility] Basophils/100 WBC (Bld) 11.4 % 0-10 [facility] Basophils/100 WBC (Bld) 8.7 % 0-5 [facility] Eosinophils/100 WBC (Bld) 8.7 % 0-5 [facility] Hemoglobin (Bld) [Mass/Vol] 10.1 g/dL 12.0-15.0 [facility] Monocytes/100 WBC (Bld) 11.4 % 0-10 [facility] Neutrophils (Bld) [#/Vol] 2.1 10*3/uL 2.0-7.7 [facility] Neutrophils/100 WBC (Bld) 50.6 % 47-70 [facility] WBC (Bld) [#/Vol] 4.1 10*3/uL 4.4-11.0 [facility] Determination of erythrocyte mean corpuscular volume (MCV)Ordered By: Edinson Irvin on 04-12-2023 MCV (RBC) [Entitic vol] 86.8 fL 81-99 [facility] Erythrocyte distribution wid th ratioOrdered By: [facility] Erythrocyte distribution width (RBC) [Ratio] 22.8 % 11.6-14.6 [facility] Erythrocyte distribution wid th standard deviationOrdered By: [facility] Erythrocyte distribution width (RBC) [Entitic vol] 72.1 fL 35.1-43.9 [facility] Hematocrit Auto (Bld) [Volum e fraction]Ordered By: Edinson Albaro 04-12-2023 Hematocrit (Bld) [Volume fraction] 30.9 % 37-47 [facility] Immature granulocytes/100 WB C Auto (Bld)Ordered By: Edinson Irvin 04-12-2023 Immature granulocytes/100 WBC (Bld) 0.500 % 0.0-0.9 [facility] Comment on above: IG% - Immature Granu locytes (promyelocytes, myelocytes and metamyelocytes) > 1% indicates that a LEFT SHIFT is Present. Laboratory - Hematology and Cell countsOrdered By: Edinson Irvin 04-12-2023 MCH (RBC) [Entitic mass] 28.4 pg 27.0-32.0 [facility] MCHC (RBC) [Mass/Vol] 32.7 g/dL 32-36 [facility] Nucleated RBC/100 WBC (Bld) [Ratio] 0 % 0-5 [facility] Platelet mean volume (Bld) [Entitic vol] 9.8 fL 6.2-12.0 [facility] Platelets (Bld) [#/Vol] 119 10*3/uL 150-450 [facility] No Panel InformationOrdered By: Edinson Irvin on 04-12-2023 28.4 pg 27.0-32.0 [facility] 32.7 g/dL -36 [facility] 119 K/mm3 150-450 [facility] 9.8 fl 6.2-12.0 [facility] 0 % 0-5 [facility] RBC Auto (Bld) [#/Vol]Ordere d By: Edinson Irvin on 04-12-2023 RBC (Bld) [#/Vol] 3.56 10*6/uL 4.2-5.4 [facility] Blood manual differential co mment interpretation (narrative result)Ordered By: Edinson Irvin on 04-11-2023 Manual differential comment Donte (Bld) [Interp] SCANNED [facility] Blood platelet adequacy dete ction by light microscopyOrdered By: Edinson Irvin on 04-11-2023 Platelets LM Ql (Bld) MOD DEC ADEQ [facility] Laboratory - Hematology and Cell countsOrdered By: Edinson Irvin on 04-11-2023 Anisocytosis Ql (Bld) 1+ [facility] No Panel InformationOrdered By: Edinson Irvin on 04-11-2023 1+ [facility] Basophil percentageOrdered B y: Edinson Irvin on 04-06-2023 Basophil percentage 0 SEEN /hpf 0-5 [facility] Bilirubin Test strip Ql (U)O rdered By: Edinson Irvin on 04-06-2023 Bilirubin Ql (U) Negative Negative [facility] Culture, urineOrdered By: Gal Irvin on 04-06-2023 Bacteria identified Cx Nom (U) Culture exhibits no growth. [facility] Ketones Test strip Ql (U)Ord ered By: Edinson Irvin on 04-06-2023 Ketones Ql (U) Negative Negative [facility] Mucus LM Ql (Urine sed)Order ed By: Edinson Irvin on 04-06-2023 Mucus Ql (Urine sed) 0 SEEN /hpf [facility] Nitrite Test strip Ql (U)Ord ered By: Edinson Irvin on 04-06-2023 Nitrite Ql (U) Negative Negative [facility] No Panel InformationOrdered By: Edinson Irvin on 04-06-2023 Urine RBC 0 SEEN /hpf 0-5 [facility] 0 SEEN /hpf 0-5 [facility] Protein Test strip Ql (U)Ord ered By: Edinson Irvin on 04-06-2023 Protein Ql (U) 15 mg/dl Negative [facility] Review by pathologistOrdered By: Edinson Irvin on 04-06-2023 Pathologist review Donte (Unsp spec) [Interp] Reviewed [facility] Comment on above: Previous reported re sult: Dori urbano Edited by: CECY on 04/06/23:1217Normocytic anemia.MARKED Thrombocytopenia.Clinical correlation necessary.Landon Ontiveros M.D. 04/06/23 AMENDED REPORT 04/06/23 1217 PATH REV previously reported as: Dori urbano Squamous epithelial cells de tection in urine sediment by light microscopyOrdered By: Edinson Irvin on 04-06-2023 Epithelial cells.squamous LM Ql (Urine sed) 0-5 SEEN /hpf 5-10 [facility] Urine blood detectionOrdered By: Edinson Irvin on 04-06-2023 RBC Ql (U) 10 /ul Negative [facility] Urine clarityOrdered By: Edinson Irvin on 04-06-2023 Clarity (U) Clear Clear [facility] Urine color determinationOrd ered By: Edinson Irvin on 04-06-2023 Color (U) Yellow Yellow [facility] Urine glucose detectionOrder ed By: Edinson Irvin on 04-06-2023 Glucose Ql (U) Normal mg/dl Normal [facility] Urine leukocyte esterase det ection by dipstickOrdered By: Edinson Irvin on 04-06-2023 Leukocyte esterase Test strip Ql (U) Negative Negative [facility] Urine pHOrdered By: Edinson Irvin on 04-06-2023 pH (U) 6.0 [pH] 5.0 - 8.0 [facility] Urine sediment bacteria coun t by microscopy (number/high power field)Ordered By: Edinson Irvin on 04-06-2023 Bacteria LM.HPF (Urine sed) [#/Area] 0 /[HPF] None Seen [facility] Urine specific gravity measu rementOrdered By: Edinson Irvin on 04-06-2023 Specific gravity (U) [Rel density] 1.015 1.002-1.03 0 [facility] Urine urobilinogen measureme ntOrdered By: Edinson Irvin on 04-06-2023 Urobilinogen Ql (U) Normal mg/dl Normal [facility] Absolute lymphocyte countOrd ered By: Jasmyn Chan on 04-05-2023 Lymphocytes Auto (Unsp spec) [#/Vol] 0.61 10*3/uL 0.83-4.51 [facility] Automated lymphocyte count a s percentage of total leukocytesOrdered By: Jasmyn Chan on 04-05-2023 Lymphocytes/100 WBC Auto (Unsp spec) 10.5 % 19-41 [facility] Basophil percentageOrdered B y: Jasmyn Chan on 04-05-2023 Basophil percentage 9.6 g/dL 12.0-15.0 [facility] Basophils (Bld) [#/Vol] 5.8 10*3/uL 4.4-11.0 [facility] Basophils (Bld) [#/Vol] 4.4 10*3/uL 2.0-7.7 [facility] Basophils/100 WBC (Bld) 0.2 % 0-1 [facility] Basophils/100 WBC (Bld) 74.7 % 47-70 [facility] Basophils/100 WBC (Bld) 8.8 % 0-10 [facility] Basophils/100 WBC (Bld) 5.3 % 0-5 [facility] Eosinophils/100 WBC (Bld) 5.3 % 0-5 [facility] Hemoglobin (Bld) [Mass/Vol] 9.6 g/dL 12.0-15.0 [facility] Monocytes/100 WBC (Bld) 8.8 % 0-10 [facility] Neutrophils (Bld) [#/Vol] 4.4 10*3/uL 2.0-7.7 [facility] Neutrophils/100 WBC (Bld) 74.7 % 47-70 [facility] WBC (Bld) [#/Vol] 5.8 10*3/uL 4.4-11.0 [facility] Blood platelet adequacy dete ction by light microscopyOrdered By: Jasmyn Chan on 04-05-2023 Platelets LM Ql (Bld) MKD DEC ADEQ [facility] Determination of erythrocyte mean corpuscular volume (MCV)Ordered By: Jasmyn Chan on 04-05-2023 MCV (RBC) [Entitic vol] 85.0 fL 81-99 [facility] Erythrocyte distribution wid th ratioOrdered By: Jasmyn Chan on 04-05-2023 Erythrocyte distribution width (RBC) [Ratio] 22.8 % 11.6-14.6 [facility] Erythrocyte distribution wid th standard deviationOrdered By: Jasmyn Chan on 04-05-2023 Erythrocyte distribution width (RBC) [Entitic vol] 69.7 fL 35.1-43.9 [facility] Hematocrit Auto (Bld) [Volum e fraction]Ordered By: Jasmyn Chan on 04-05-2023 Hematocrit (Bld) [Volume fraction] 28.8 % 37-47 [facility] Immature granulocytes/100 WB C Auto (Bld)Ordered By: Jasmyn Chan on 04-05-2023 Immature granulocytes/100 WBC (Bld) 0.500 % 0.0-0.9 [facility] Comment on above: IG% - Immature Granu locytes (promyelocytes, myelocytes and metamyelocytes) > 1% indicates that a LEFT SHIFT is Present. Laboratory - Hematology and Cell countsOrdered By: Jasmyn Chan on 04-05-2023 Anisocytosis Ql (Bld) 2+ [facility] MCH (RBC) [Entitic mass] 28.3 pg 27.0-32.0 [facility] MCHC (RBC) [Mass/Vol] 33.3 g/dL 32-36 [facility] Nucleated RBC/100 WBC (Bld) [Ratio] 0 % 0-5 [facility] Platelet mean volume (Bld) [Entitic vol] 9.9 fL 6.2-12.0 [facility] Platelets (Bld) [#/Vol] 32 10*3/uL 150-450 [facility] No Panel InformationOrdered By: Jasmyn Chan on 04-05-2023 28.3 pg 27.0-32.0 [facility] 33.3 g/dL 32-36 [facility] 32 K/mm3 150-450 [facility] 9.9 fl 6.2-12.0 [facility] 0 % 0-5 [facility] 2+ [facility] RBC Auto (Bld) [#/Vol]Ordere d By: Jasmyn Chan on 04-05-2023 RBC (Bld) [#/Vol] 3.39 10*6/uL 4.2-5.4 [facility] Review by pathologistOrdered By: Jasmyn Chan on 04-05-2023 Pathologist review Donte (Unsp spec) [Interp] Reviewed [facility] Comment on above: Previous reported re sult: Dori urbano Edited by: RGOVIKTOR on 04/05/23:1300Normocytic anemia.Marked Thrombocytopenia.Clinical correlation necessary.Landon Ontiveros M.D. 04/05/23 AMENDED REPORT 04/05/23 1300 PATH REV previously reported as: Dori urbano Blood manual differential co mment interpretation (narrative result)Ordered By: Jasmyn Chan on 04-04-2023 Manual differential comment Donte (Bld) [Interp] SCANNED [facility] Comment on above: LYMPHOPENIA NOTEDTHR OMBOCYTOPENIA NOTED Laboratory - CoagulationOrde red By: Laine Veras on 04-03-2023 INR Coag (Bld) [Relative time] 1.3 {INR} [facility] PT Coag (PPP) [Time] 16.2 s 11.7-14.9 [facility] No Panel InformationOrdered By: Laine Veras on 04-03-2023 16.2 SECONDS 11.7-14.9 [facility] 1.3 [facility] Basophil percentageOrdered B y: Alisa Mathew on 04-02-2023 Basophil percentage 86 mg/dL 74-106 [facility] Basophil percentage 4.9 g/dL 6.4-8.2 [facility] Basophil percentage 1.70 mg/dL 0.20-1.00 [facility] Basophil percentage 134 mmol/L 136-145 [facility] Basophil percentage 3.6 mmol/L 3.5-5.1 [facility] Basophil percentage 102 mmol/L 98-107 [facility] Bilirubin [Mass/Vol] 1.70 mg/dL 0.20-1.00 [facility] Comment on above: For patients on eltr ombopag therapy, use of Dimension [place] TBIL is not recommended. Chloride [Moles/Vol] 102 mmol/L 98-107 [facility] Glucose [Mass/Vol] 86 mg/dL 74-106 [facility] Potassium [Moles/Vol] 3.6 mmol/L 3.5-5.1 [facility] Protein [Mass/Vol] 4.9 g/dL 6.4-8.2 [facility] Sodium [Moles/Vol] 134 mmol/L 136-145 [facility] Laboratory - Chemistry and C hemistry - challengeOrdered By: Alisa Mathew on 04-02-2023 Albumin/Globulin [Mass ratio] 0.7 {ratio} 0.9-2.4 [facility] ALP [Catalytic activity/Vol] 84 U/L 45-117 [facility] ALT [Catalytic activity/Vol] 35 U/L 13-56 [facility] CO2 [Moles/Vol] 27.0 mmol/L 21.0-32.0 [facility] Globulin (S) [Mass/Vol] 2.9 g/dL 2.2-4.2 [facility] Urea nitrogen/Creatinine [Mass ratio] 25.1 mg/mg 10-20 [facility] No Panel InformationOrdered By: Alisa Mathew on 04-02-2023 Estimated Creatinine Clearance Calc 50.26 ml/min [facility] Estimated GFR (MDRD) Amer 149 mL/min >60 [facility] Comment on above: GFR Calc Estimated GFR (MDRD) Non-Af Amer 123 mL/min >60 [facility] Comment on above: Non- GFR Calc 123 mL/min >60 [facility] 149 mL/min >60 [facility] 50.26 ml/min [facility] 25.1 RATIO 10-20 [facility] 2.9 g/dL 2.2-4.2 [facility] 0.7 RATIO 0.9-2.4 [facility] 84 U/L 45-117 [facility] 35 U/L 13-56 [facility] 27.0 mmol/L 21.0-32.0 [facility] Serum or plasma calcium monica urement (mass/volume)Ordered By: Alisa Mathew on 04-02-2023 Calcium [Mass/Vol] 7.2 mg/dL 8.5-10.1 [facility] Serum or plasma creatinine m easurement (mass/volume)Ordered By: Alisa Mathew on 04-02-2023 Creatinine [Mass/Vol] 0.52 mg/dL 0.55-1.02 [facility] Comment on above: The validity of the calculated GFR & GFRAA in patients over 70 years has not been determined. Clinical correlation is essential. Serum or plasma urea nitroge n measurement (mass/volume)Ordered By: Alisa Mathew on 04-02-2023 Urea nitrogen [Mass/Vol] 13 mg/dL 7-18 [facility] Thin prep Papanicolaou smear with manual screeningOrdered By: Alisa Mathew on 04-02-2023 Thin prep Papanicolaou smear with manual screening 2.0 g/dL 3.2-5.0 [facility] Thin prep Papanicolaou smear with manual screening 20 U/L 15-37 [facility] Thin prep Papanicolaou smear with manual screening 5 5-15 [facility] Iron measurement (mass/mass) Ordered By: Alisa Mathew on 04-01-2023 Iron (Unsp spec) [Mass/Mass] 21 ug/dL 50-170 [facility] Laboratory - Chemistry and C hemistry - challengeOrdered By: Alisa Mathew on 04-01-2023 Ferritin [Mass/Vol] 268 ng/mL 8-252 [facility] Laboratory - Chemistry and C hemistry - challengeOrdered By: Laine Veras on 04-01-2023 Magnesium [Mass/Vol] 2.1 mg/dL 1.6-2.6 [facility] No Panel InformationOrdered By: Alisa Mathew on 04-01-2023 Total Iron Binding Capacity 243 ug/dL 250-450 [facility] 243 ug/dL 250-450 [facility] 268 ng/mL 8-252 [facility] No Panel InformationOrdered By: Laine Veras on 04-01-2023 2.1 mg/dL 1.6-2.6 [facility] Serum or plasma iron saturat ion measurement (mass fraction)Ordered By: Alisa Mathew on 04-01-2023 Iron saturation [Mass fraction] 8.6 % 15.0-55.0 [facility] Absolute lymphocyte countOrd ered By: Frederick Norah on 03-31-2023 Lymphocytes Auto (Unsp spec) [#/Vol] 0.59 10*3/uL 0.83-4.51 [facility] Automated lymphocyte count a s percentage of total leukocytesOrdered By: Frederick Almazan on 03-31-2023 Lymphocytes/100 WBC Auto (Unsp spec) 3.0 % 19-41 [facility] Basophil percentageOrdered B y: Frederick Almazan on 03-31-2023 Basophil percentage 1.4 mmol/L 0.4-2.0 [facility] Basophils/100 WBC (Bld) 0.1 % 0-1 [facility] Chloride [Moles/Vol] 99 mmol/L 98-107 [facility] Eosinophils/100 WBC (Bld) 0.1 % 0-5 [facility] Glucose [Mass/Vol] 108 mg/dL 74-106 [facility] Comment on above: Fasting Glucose resu lt from 100 to 125 mg/dL suggests IMPAIRED HOMEOSTASIS per A.D.A. criteria. Hemoglobin (Bld) [Mass/Vol] 8.3 g/dL 12.0-15.0 [facility] Lactate [Moles/Vol] 1.4 mmol/L 0.4-2.0 [facility] Monocytes/100 WBC (Bld) 5.0 % 0-10 [facility] Neutrophils (Bld) [#/Vol] 17.6 10*3/uL 2.0-7.7 [facility] Neutrophils/100 WBC (Bld) 90.8 % 47-70 [facility] Potassium [Moles/Vol] 3.2 mmol/L 3.5-5.1 [facility] Sodium [Moles/Vol] 134 mmol/L 136-145 [facility] WBC (Bld) [#/Vol] 19.4 10*3/uL 4.4-11.0 [facility] Blood manual differential co mment interpretation (narrative result)Ordered By: Frederick Almazan on 03-31-2023 Manual differential comment Donte (Bld) [Interp] SCANNED [facility] Blood platelet adequacy dete ction by light microscopyOrdered By: Frederick Almazan on 03-31-2023 Platelets LM Ql (Bld) MOD DEC ADEQ [facility] Determination of erythrocyte mean corpuscular volume (MCV)Ordered By: Frederick Almazan on 03-31-2023 MCV (RBC) [Entitic vol] 86.8 fL 81-99 [facility] Erythrocyte distribution wid th ratioOrdered By: Frederick Almazan on 03-31-2023 Erythrocyte distribution width (RBC) [Ratio] 24.1 % 11.6-14.6 [facility] Erythrocyte distribution wid th standard deviationOrdered By: Frederick Almazan on 03-31-2023 Erythrocyte distribution width (RBC) [Entitic vol] 75.1 fL 35.1-43.9 [facility] Erythrocyte sedimentation ra teOrdered By: Laine Veras on 03-31-2023 ESR (Bld) [Velocity] 7 mm/h 0-30 [facility] Hematocrit Auto (Bld) [Volum e fraction]Ordered By: Frederick Almazan on 03-31-2023 Hematocrit (Bld) [Volume fraction] 24.9 % 37-47 [facility] Immature granulocytes/100 WB C Auto (Bld)Ordered By: Frederick Almazan on 03-31-2023 Immature granulocytes/100 WBC (Bld) 1.000 % 0.0-0.9 [facility] Comment on above: IG% - Immature Granu locytes (promyelocytes, myelocytes and metamyelocytes) > 1% indicates that a LEFT SHIFT is Present. Laboratory - Chemistry and C hemistry - challengeOrdered By: Frederick Almazan on 03-31-2023 CK [Catalytic activity/Vol] 125 U/L 26-192 [facility] CO2 [Moles/Vol] 29.0 mmol/L 21.0-32.0 [facility] Natriuretic peptide B (Bld) [Mass/Vol] 97.8 pg/mL 0-100 [facility] Urea nitrogen/Creatinine [Mass ratio] 41.2 mg/mg 10-20 [facility] Laboratory - CoagulationOrde red By: Frederick Almazan on 03-31-2023 INR Coag (Bld) [Relative time] 1.3 {INR} [facility] PT Coag (PPP) [Time] 16.0 s 11.7-14.9 [facility] Laboratory - Hematology and Cell countsOrdered By: Frederick Almazan on 03-31-2023 Anisocytosis Ql (Bld) 2+ [facility] MCH (RBC) [Entitic mass] 28.9 pg 27.0-32.0 [facility] MCHC (RBC) [Mass/Vol] 33.3 g/dL 32-36 [facility] Nucleated RBC/100 WBC (Bld) [Ratio] 0 % 0-5 [facility] Platelet mean volume (Bld) [Entitic vol] 10.4 fL 6.2-12.0 [facility] Platelets (Bld) [#/Vol] 95 10*3/uL 150-450 [facility] Macrocytes detectionOrdered By: Frdeerick Almazan on 03-31-2023 Macrocytes Ql (Bld) 1+ [facility] No Panel InformationOrdered By: Laine Veras on 03-31-2023 C-Reactive Protein Extended Range 35.90 mg/L 0.0-3.0 [facility] Comment on above: C-Reactive Protein ( CRP) provides useful information for thediagnosis, therapy and monitoring of inflammatory processesand associated diseases. For the evaluation of Relative Riskfor Cardiovascular Disease, a High Sensitivity CRP (HSCRP)should be ordered. 35.90 mg/L 0.0-3.0 [facility] No Panel InformationOrdered By: Frederick Almazan on 03-31-2023 Estimated Creatinine Clearance Calc 50.26 ml/min [facility] Estimated GFR (MDRD) Amer 96 mL/min >60 [facility] Comment on above: GFR Calc Estimated GFR (MDRD) Non-Af Amer 80 mL/min >60 [facility] Comment on above: Non- GFR Calc 125 U/L 26-192 [facility] 97.8 pg/mL 0-100 [facility] RBC Auto (Bld) [#/Vol]Ordere d By: Frederick Almazan on 02-10-2024 RBC (Bld) [#/Vol] 2.87 10*6/uL 4.2-5.4 [facility] Serum or plasma calcium monica urement (mass/volume)Ordered By: Frederick Almazan on 03-31-2023 Calcium [Mass/Vol] 7.8 mg/dL 8.5-10.1 [facility] Serum or plasma creatinine m easurement (mass/volume)Ordered By: Frederick Almazan on 03-31-2023 Creatinine [Mass/Vol] 0.75 mg/dL 0.55-1.02 [facility] Comment on above: The validity of the calculated GFR & GFRAA in patients over 70 years has not been determined. Clinical correlation is essential. Serum or plasma urea nitroge n measurement (mass/volume)Ordered By: Frederick Almazan on 03-31-2023 Urea nitrogen [Mass/Vol] 31 mg/dL 7-18 [facility] Thin prep Papanicolaou smear with manual screeningOrdered By: Frederick Almazan on 03-31-2023 Thin prep Papanicolaou smear with manual screening 1+ [facility] Thin prep Papanicolaou smear with manual screening 6 5-15 [facility] Absolute lymphocyte countOrd ered By: Etienne Thacker on 03-28-2023 Lymphocytes Auto (Unsp spec) [#/Vol] 1.04 10*3/uL 0.83-4.51 [facility] Automated lymphocyte count a s percentage of total leukocytesOrdered By: Etienne Thacker on 03-28-2023 Lymphocytes/100 WBC Auto (Unsp spec) 7.4 % 19-41 [facility] Basophil percentageOrdered B y: Etienne Thacker on 03-28-2023 Basophil percentage 9.6 g/dL 12.0-15.0 [facility] Basophil percentage 113 mg/dL 74-106 [facility] Basophil percentage 131 mmol/L 136-145 [facility] Basophil percentage 4.0 mmol/L 3.5-5.1 [facility] Basophil percentage 98 mmol/L 98-107 [facility] Basophils (Bld) [#/Vol] 14.1 10*3/uL 4.4-11.0 [facility] Basophils (Bld) [#/Vol] 11.3 10*3/uL 2.0-7.7 [facility] Basophils/100 WBC (Bld) 0.2 % 0-1 [facility] Basophils/100 WBC (Bld) 80.2 % 47-70 [facility] Basophils/100 WBC (Bld) 9.8 % 0-10 [facility] Basophils/100 WBC (Bld) 0.0 % 0-5 [facility] Chloride [Moles/Vol] 98 mmol/L 98-107 [facility] Eosinophils/100 WBC (Bld) 0.0 % 0-5 [facility] Glucose [Mass/Vol] 113 mg/dL 74-106 [facility] Comment on above: Fasting Glucose resu lt from 100 to 125 mg/dL suggests IMPAIRED HOMEOSTASIS per A.D.A. criteria. Hemoglobin (Bld) [Mass/Vol] 9.6 g/dL 12.0-15.0 [facility] Monocytes/100 WBC (Bld) 9.8 % 0-10 [facility] Neutrophils (Bld) [#/Vol] 11.3 10*3/uL 2.0-7.7 [facility] Neutrophils/100 WBC (Bld) 80.2 % 47-70 [facility] Potassium [Moles/Vol] 4.0 mmol/L 3.5-5.1 [facility] Sodium [Moles/Vol] 131 mmol/L 136-145 [facility] WBC (Bld) [#/Vol] 14.1 10*3/uL 4.4-11.0 [facility] Blood manual differential co mment interpretation (narrative result)Ordered By: Etienne Thacker on 03-28-2023 Manual differential comment Donte (Bld) [Interp] See comment [facility] Comment on above: 1+ ANISOCYTOSIS Determination of erythrocyte mean corpuscular volume (MCV)Ordered By: Etienne Thacker on 03-28-2023 MCV (RBC) [Entitic vol] 83.2 fL 81-99 [facility] Erythrocyte distribution wid th ratioOrdered By: Etienne Thacker on 03-28-2023 Erythrocyte distribution width (RBC) [Ratio] 22.1 % 11.6-14.6 [facility] Erythrocyte distribution wid th standard deviationOrdered By: Etienne Thacker on 03-28-2023 Erythrocyte distribution width (RBC) [Entitic vol] 52.7 fL 35.1-43.9 [facility] Hematocrit Auto (Bld) [Volum e fraction]Ordered By: Etienne Thacker on 03-28-2023 Hematocrit (Bld) [Volume fraction] 28.8 % 37-47 [facility] Immature granulocytes/100 WB C Auto (Bld)Ordered By: Etienne Thacker on 03-28-2023 Immature granulocytes/100 WBC (Bld) 2.400 % 0.0-0.9 [facility] Comment on above: IG% - Immature Granu locytes (promyelocytes, myelocytes and metamyelocytes) > 1% indicates that a LEFT SHIFT is Present. Laboratory - Chemistry and C hemistry - challengeOrdered By: Etienne Thacker on 03-28-2023 CO2 [Moles/Vol] 25.0 mmol/L 21.0-32.0 [facility] Natriuretic peptide B (Bld) [Mass/Vol] 162.5 pg/mL 0-100 [facility] Urea nitrogen/Creatinine [Mass ratio] 35.6 mg/mg 10-20 [facility] Laboratory - CoagulationOrde red By: Etienne Thacker on 03-28-2023 INR Coag (Bld) [Relative time] 3.1 {INR} [facility] PT Coag (PPP) [Time] 32.4 s 11.7-14.9 [facility] Laboratory - Hematology and Cell countsOrdered By: Etienne Thacker on 03-28-2023 MCH (RBC) [Entitic mass] 27.7 pg 27.0-32.0 [facility] MCHC (RBC) [Mass/Vol] 33.3 g/dL 32-36 [facility] Nucleated RBC/100 WBC (Bld) [Ratio] 0.1 % 0-5 [facility] Platelet mean volume (Bld) [Entitic vol] 10.3 fL 6.2-12.0 [facility] Platelets (Bld) [#/Vol] 170 10*3/uL 150-450 [facility] No Panel InformationOrdered By: Etienne Thacker on 03-28-2023 Estimated Creatinine Clearance Calc 39.81 ml/min [facility] Estimated GFR (MDRD) Amer 69 mL/min >60 [facility] Comment on above: GFR Calc Estimated GFR (MDRD) Non-Af Amer 57 mL/min >60 [facility] Comment on above: Non- GFR Calc Troponin I High Sensitivity 17 pg/mL 3.0-54.0 [facility] Comment on above: Please Note: New Aubrie t Units and Gender Specific Reference Ranges. For more information see Policy Stat Procedure [place] High Sensitivity Troponin (TNIH) and attachments. 27.7 pg 27.0-32.0 [facility] 33.3 g/dL 32-36 [facility] 170 K/mm3 150-450 [facility] 10.3 fl 6.2-12.0 [facility] 0.1 % 0-5 [facility] 32.4 SECONDS 11.7-14.9 [facility] 3.1 [facility] 57 mL/min >60 [facility] 69 mL/min >60 [facility] 39.81 ml/min [facility] 35.6 RATIO 10-20 [facility] 17 pg/mL 3.0-54.0 [facility] 25.0 mmol/L 21.0-32.0 [facility] 162.5 pg/mL 0-100 [facility] RBC Auto (Bld) [#/Vol]Ordere d By: Etienne Thacker on 03-28-2023 RBC (Bld) [#/Vol] 3.46 10*6/uL 4.2-5.4 [facility] Serum or plasma calcium monica urement (mass/volume)Ordered By: Etienne Thacker on 03-28-2023 Calcium [Mass/Vol] 8.5 mg/dL 8.5-10.1 [facility] Serum or plasma creatinine m easurement (mass/volume)Ordered By: Etienne Thacker on 03-28-2023 Creatinine [Mass/Vol] 1.01 mg/dL 0.55-1.02 [facility] Comment on above: The validity of the calculated GFR & GFRAA in patients over 70 years has not been determined. Clinical correlation is essential. Serum or plasma urea nitroge n measurement (mass/volume)Ordered By: Etienne Tahcker on 03-28-2023 Urea nitrogen [Mass/Vol] 36 mg/dL 7-18 [facility] Thin prep Papanicolaou smear with manual screeningOrdered By: Etienne Thacker on 03-28-2023 Thin prep Papanicolaou smear with manual screening 8 5-15 [facility] Absolute lymphocyte countOrd ered By: Laine Rito on 03-27-2023 Lymphocytes Auto (Unsp spec) [#/Vol] 1.08 10*3/uL 0.83-4.51 [facility] Automated lymphocyte count a s percentage of total leukocytesOrdered By: Laine Veras on 03-27-2023 Lymphocytes/100 WBC Auto (Unsp spec) 8.7 % 19-41 [facility] Basophil percentageOrdered B y: Laine Veras on 03-27-2023 Basophil percentage 7.9 g/dL 12.0-15.0 [facility] Basophil percentage 103 mg/dL 74-106 [facility] Basophil percentage 5.3 g/dL 6.4-8.2 [facility] Basophil percentage 1.70 mg/dL 0.20-1.00 [facility] Basophil percentage 132 mmol/L 136-145 [facility] Basophil percentage 4.1 mmol/L 3.5-5.1 [facility] Basophil percentage 101 mmol/L 98-107 [facility] Basophils (Bld) [#/Vol] 12.4 10*3/uL 4.4-11.0 [facility] Basophils (Bld) [#/Vol] 9.5 10*3/uL 2.0-7.7 [facility] Basophils/100 WBC (Bld) 0.2 % 0-1 [facility] Basophils/100 WBC (Bld) 76.4 % 47-70 [facility] Basophils/100 WBC (Bld) 10.7 % 0-10 [facility] Basophils/100 WBC (Bld) 0.0 % 0-5 [facility] Bilirubin [Mass/Vol] 1.70 mg/dL 0.20-1.00 [facility] Comment on above: For patients on eltr ombopag therapy, use of Dimension [place] TBIL is not recommended. Chloride [Moles/Vol] 101 mmol/L 98-107 [facility] Eosinophils/100 WBC (Bld) 0.0 % 0-5 [facility] Glucose [Mass/Vol] 103 mg/dL 74-106 [facility] Comment on above: Fasting Glucose resu lt from 100 to 125 mg/dL suggests IMPAIRED HOMEOSTASIS per A.D.A. criteria. Hemoglobin (Bld) [Mass/Vol] 7.9 g/dL 12.0-15.0 [facility] Monocytes/100 WBC (Bld) 10.7 % 0-10 [facility] Neutrophils (Bld) [#/Vol] 9.5 10*3/uL 2.0-7.7 [facility] Neutrophils/100 WBC (Bld) 76.4 % 47-70 [facility] Potassium [Moles/Vol] 4.1 mmol/L 3.5-5.1 [facility] Protein [Mass/Vol] 5.3 g/dL 6.4-8.2 [facility] Sodium [Moles/Vol] 132 mmol/L 136-145 [facility] WBC (Bld) [#/Vol] 12.4 10*3/uL 4.4-11.0 [facility] Blood manual differential co mment interpretation (narrative result)Ordered By: Laine Veras on 03-27-2023 Manual differential comment Donte (Bld) [Interp] SCANNED [facility] Determination of erythrocyte mean corpuscular volume (MCV)Ordered By: Laine Veras on 03-27-2023 MCV (RBC) [Entitic vol] 85.0 fL 81-99 [facility] Erythrocyte distribution wid th ratioOrdered By: Laine Veras on 03-27-2023 Erythrocyte distribution width (RBC) [Ratio] 20.5 % 11.6-14.6 [facility] Erythrocyte distribution wid th standard deviationOrdered By: Laine Veras on 03-27-2023 Erythrocyte distribution width (RBC) [Entitic vol] 51.5 fL 35.1-43.9 [facility] Hematocrit Auto (Bld) [Volum e fraction]Ordered By: Laine Veras on 03-27-2023 Hematocrit (Bld) [Volume fraction] 24.4 % 37-47 [facility] Immature granulocytes/100 WB C Auto (Bld)Ordered By: Laine Veras on 03-27-2023 Immature granulocytes/100 WBC (Bld) 4.000 % 0.0-0.9 [facility] Comment on above: IG% - Immature Granu locytes (promyelocytes, myelocytes and metamyelocytes) > 1% indicates that a LEFT SHIFT is Present. Laboratory - Chemistry and C hemistry - challengeOrdered By: Laine Veras on 03-27-2023 Albumin/Globulin [Mass ratio] 0.8 {ratio} 0.9-2.4 [facility] ALP [Catalytic activity/Vol] 170 U/L 45-117 [facility] ALT [Catalytic activity/Vol] 65 U/L 13-56 [facility] CO2 [Moles/Vol] 24.0 mmol/L 21.0-32.0 [facility] Globulin (S) [Mass/Vol] 3.0 g/dL 2.2-4.2 [facility] Magnesium [Mass/Vol] 2.6 mg/dL 1.6-2.6 [facility] Urea nitrogen/Creatinine [Mass ratio] 29.9 mg/mg 10-20 [facility] Laboratory - CoagulationOrde red By: Laine Veras on 03-27-2023 INR Coag (Bld) [Relative time] 3.9 {INR} [facility] PT Coag (PPP) [Time] 38.9 s 11.7-14.9 [facility] Laboratory - Hematology and Cell countsOrdered By: Laine Veras on 03-27-2023 Anisocytosis Ql (Bld) 2+ [facility] MCH (RBC) [Entitic mass] 27.5 pg 27.0-32.0 [facility] MCHC (RBC) [Mass/Vol] 32.4 g/dL 32-36 [facility] Nucleated RBC/100 WBC (Bld) [Ratio] 0.2 % 0-5 [facility] Platelet mean volume (Bld) [Entitic vol] 10.2 fL 6.2-12.0 [facility] Platelets (Bld) [#/Vol] 134 10*3/uL 150-450 [facility] No Panel InformationOrdered By: Laine Veras on 03-27-2023 Estimated Creatinine Clearance Calc 46.22 ml/min [facility] Estimated GFR (MDRD) Amer 82 mL/min >60 [facility] Comment on above: GFR Calc Estimated GFR (MDRD) Non-Af Amer 67 mL/min >60 [facility] Comment on above: Non- GFR Calc 27.5 pg 27.0-32.0 [facility] 32.4 g/dL 32-36 [facility] 134 K/mm3 150-450 [facility] 10.2 fl 6.2-12.0 [facility] 0.2 % 0-5 [facility] 2+ [facility] 38.9 SECONDS 11.7-14.9 [facility] 3.9 [facility] 67 mL/min >60 [facility] 82 mL/min >60 [facility] 46.22 ml/min [facility] 29.9 RATIO 10-20 [facility] 3.0 g/dL 2.2-4.2 [facility] 0.8 RATIO 0.9-2.4 [facility] 170 U/L 45-117 [facility] 65 U/L 13-56 [facility] 2.6 mg/dL 1.6-2.6 [facility] 24.0 mmol/L 21.0-32.0 [facility] RBC Auto (Bld) [#/Vol]Ordere d By: Laine Veras on 03-27-2023 RBC (Bld) [#/Vol] 2.87 10*6/uL 4.2-5.4 [facility] Serum or plasma calcium monica urement (mass/volume)Ordered By: Laine Veras on 03-27-2023 Calcium [Mass/Vol] 7.7 mg/dL 8.5-10.1 [facility] Serum or plasma creatinine m easurement (mass/volume)Ordered By: Laine Veras on 03-27-2023 Creatinine [Mass/Vol] 0.87 mg/dL 0.55-1.02 [facility] Comment on above: The validity of the calculated GFR & GFRAA in patients over 70 years has not been determined. Clinical correlation is essential. Serum or plasma thyroid stim ulating hormone (TSH) measurement (units/volume)Ordered By: Laine Veras on 03-27-2023 TSH Qn 0.76 uIU/mL 0.358-3.74 [facility] Serum or plasma urea nitroge n measurement (mass/volume)Ordered By: Laine Veras on 03-27-2023 Urea nitrogen [Mass/Vol] 26 mg/dL 7-18 [facility] Thin prep Papanicolaou smear with manual screeningOrdered By: Laine Veras on 03-27-2023 Thin prep Papanicolaou smear with manual screening 2.3 g/dL 3.2-5.0 [facility] Thin prep Papanicolaou smear with manual screening 27 U/L 15-37 [facility] Thin prep Papanicolaou smear with manual screening 7 5-15 [facility] Absolute lymphocyte countOrd ered By: Martín Cornejo on 03-26-2023 Lymphocytes Auto (Unsp spec) [#/Vol] 1.06 10*3/uL 0.83-4.51 [facility] Automated lymphocyte count a s percentage of total leukocytesOrdered By: Martín Cornejo on 03-26-2023 Lymphocytes/100 WBC Auto (Unsp spec) 6.3 % 19-41 [facility] Basophil percentageOrdered B y: Martín Cornejo on 03-26-2023 Basophil percentage 0 SEEN /hpf 0-5 [facility] Basophils/100 WBC (Bld) 0.1 % 0-1 [facility] Chloride [Moles/Vol] 101 mmol/L 98-107 [facility] Eosinophils/100 WBC (Bld) 0.0 % 0-5 [facility] Glucose [Mass/Vol] 111 mg/dL 74-106 [facility] Comment on above: Fasting Glucose resu lt from 100 to 125 mg/dL suggests IMPAIRED HOMEOSTASIS per A.D.A. criteria. Hemoglobin (Bld) [Mass/Vol] 8.9 g/dL 12.0-15.0 [facility] Monocytes/100 WBC (Bld) 9.6 % 0-10 [facility] Neutrophils (Bld) [#/Vol] 13.6 10*3/uL 2.0-7.7 [facility] Neutrophils/100 WBC (Bld) 80.3 % 47-70 [facility] Potassium [Moles/Vol] 3.6 mmol/L 3.5-5.1 [facility] Sodium [Moles/Vol] 135 mmol/L 136-145 [facility] WBC (Bld) [#/Vol] 16.9 10*3/uL 4.4-11.0 [facility] Bilirubin Test strip Ql (U)O rdered By: Martín Cornejo on 03-26-2023 Bilirubin Ql (U) Negative Negative [facility] Blood manual differential co mment interpretation (narrative result)Ordered By: Martín Cornejo on 03-26-2023 Manual differential comment Donte (Bld) [Interp] SCANNED [facility] Determination of erythrocyte mean corpuscular volume (MCV)Ordered By: Martín Cornejo on 03-26-2023 MCV (RBC) [Entitic vol] 81.5 fL 81-99 [facility] Erythrocyte distribution wid th ratioOrdered By: Martín Cornejo on 03-26-2023 Erythrocyte distribution width (RBC) [Ratio] 19.6 % 11.6-14.6 [facility] Erythrocyte distribution wid th standard deviationOrdered By: Martín Cornejo on 03-26-2023 Erythrocyte distribution width (RBC) [Entitic vol] 48.8 fL 35.1-43.9 [facility] Hematocrit Auto (Bld) [Volum e fraction]Ordered By: Martín Cornejo on 03-26-2023 Hematocrit (Bld) [Volume fraction] 26.8 % 37-47 [facility] Immature granulocytes/100 WB C Auto (Bld)Ordered By: Martín Cornejo on 03-26-2023 Immature granulocytes/100 WBC (Bld) 3.700 % 0.0-0.9 [facility] Comment on above: IG% - Immature Granu locytes (promyelocytes, myelocytes and metamyelocytes) > 1% indicates that a LEFT SHIFT is Present. International normalized rat io (INR) calculationOrdered By: Martín Cornejo on 03-26-2023 INR Coag (PPP) [Relative time] 3.2 {INR} [facility] Ketones Test strip Ql (U)Ord ered By: Martín Cornejo on 03-26-2023 Ketones Ql (U) Negative Negative [facility] Laboratory - Chemistry and C hemistry - challengeOrdered By: Martín Cornejo on 03-26-2023 CO2 [Moles/Vol] 27.0 mmol/L 21.0-32.0 [facility] Natriuretic peptide B (Bld) [Mass/Vol] 322.3 pg/mL 0-100 [facility] Urea nitrogen/Creatinine [Mass ratio] 34.8 mg/mg 10-20 [facility] Laboratory - CoagulationOrde red By: Martín Cornejo on 03-26-2023 PT Coag (PPP) [Time] 33.3 s 11.7-14.9 [facility] Laboratory - Hematology and Cell countsOrdered By: Martín Cornejo on 03-26-2023 MCH (RBC) [Entitic mass] 27.1 pg 27.0-32.0 [facility] MCHC (RBC) [Mass/Vol] 33.2 g/dL 32-36 [facility] Nucleated RBC/100 WBC (Bld) [Ratio] 0.1 % 0-5 [facility] Platelets (Bld) [#/Vol] 169 10*3/uL 150-450 [facility] Mucus LM Ql (Urine sed)Order ed By: Martín Cornejo on 03-26-2023 Mucus Ql (Urine sed) 0 SEEN /hpf [facility] Nitrite Test strip Ql (U)Ord ered By: Martín Cornejo on 03-26-2023 Nitrite Ql (U) Negative Negative [facility] No Panel InformationOrdered By: Martín Cornejo on 03-26-2023 Urine RBC 0 SEEN /hpf 0-5 [facility] 0 SEEN /hpf 0-5 [facility] Estimated Creatinine Clearance Calc 49.15 ml/min [facility] Estimated GFR (MDRD) Amer 79 mL/min >60 [facility] Comment on above: GFR Calc Estimated GFR (MDRD) Non-Af Amer 66 mL/min >60 [facility] Comment on above: Non- GFR Calc Troponin I High Sensitivity 20 pg/mL 3.0-54.0 [facility] Comment on above: Please Note: New Aubrie t Units and Gender Specific Reference Ranges. For more information see Policy Stat Procedure [place] High Sensitivity Troponin (TNIH) and attachments. 20 pg/mL 3.0-54.0 [facility] 322.3 pg/mL 0-100 [facility] Platelet mean volume Nicholas-Ec ker (Bld) [Entitic vol]Ordered By: Martín Cornejo on 03-26-2023 Platelet mean volume (Bld) [Entitic vol] 9.9 fL 6.2-12.0 [facility] Protein Test strip Ql (U)Ord ered By: Martín Cornejo on 03-26-2023 Protein Ql (U) 30 mg/dl Negative [facility] RBC Auto (Bld) [#/Vol]Ordere d By: Martín Cornejo on 03-26-2023 RBC (Bld) [#/Vol] 3.29 10*6/uL 4.2-5.4 [facility] Review by pathologistOrdered By: Martín Cornejo on 03-26-2023 Pathologist review Donte (Unsp spec) [Interp] Dori urbano [facility] Pathologist review Donte (Unsp spec) [Interp] Reviewed [facility] Comment on above: Previous reported re sult: Dori sundeep Edited by: RGOVIKTOR on 03/27/23:1255Neutrophilic leukocytosis with left shift.Normocytic anemia.Clinical correlation necessary.Landon Ontiveros M.D. 03/27/23 AMENDED REPORT 03/27/23 1255 PATH REV previously reported as: Dori urbano Serum or plasma calcium monica urement (mass/volume)Ordered By: Martín Cornejo on 03-26-2023 Calcium [Mass/Vol] 8.1 mg/dL 8.5-10.1 [facility] Serum or plasma creatinine m easurement (mass/volume)Ordered By: Martín Cornejo on 03-26-2023 Creatinine [Mass/Vol] 0.89 mg/dL 0.55-1.02 [facility] Comment on above: The validity of the calculated GFR & GFRAA in patients over 70 years has not been determined. Clinical correlation is essential. Serum or plasma urea nitroge n measurement (mass/volume)Ordered By: Martín Cornejo on 03-26-2023 Urea nitrogen [Mass/Vol] 31 mg/dL 7-18 [facility] Squamous epithelial cells de tection in urine sediment by light microscopyOrdered By: Martín Cornejo on 03-26-2023 Epithelial cells.squamous LM Ql (Urine sed) 0 SEEN /hpf 5-10 [facility] Thin prep Papanicolaou smear with manual screeningOrdered By: Martín Cornejo on 03-26-2023 Thin prep Papanicolaou smear with manual screening 7 5-15 [facility] Urine blood detectionOrdered By: Martín Cornejo on 03-26-2023 RBC Ql (U) 10 /ul Negative [facility] Urine clarityOrdered By: Ryder Cornejo on 03-26-2023 Clarity (U) Clear Clear [facility] Urine color determinationOrd ered By: Martín Cornejo on 03-26-2023 Color (U) Yellow Yellow [facility] Urine glucose detectionOrder ed By: Martín Cornejo on 03-26-2023 Glucose Ql (U) Normal mg/dl Normal [facility] Urine leukocyte esterase det ection by dipstickOrdered By: Martín Cornejo on 03-26-2023 Leukocyte esterase Test strip Ql (U) Negative Negative [facility] Urine pHOrdered By: Martín rebolledo on 03-26-2023 pH (U) 6.5 [pH] 5.0 - 8.0 [facility] Urine sediment bacteria coun t by microscopy (number/high power field)Ordered By: Martín Cornejo on 03-26-2023 Bacteria LM.HPF (Urine sed) [#/Area] 0 /[HPF] None Seen [facility] Urine specific gravity measu rementOrdered By: Martín Cornejo on 03-26-2023 Specific gravity (U) [Rel density] 1.015 1.002-1.03 0 [facility] Urine urobilinogen measureme ntOrdered By: Martín Cornejo on 03-26-2023 Urobilinogen Ql (U) Normal mg/dl Normal [facility] Basic metabolic 2000 panelon 03-25-2023 Anion gap [Moles/Vol] 11 mmol/L Normal 9-18 [facility] Comment on above: Order Comment: Speci men Type: BLOOD SPECIMEN Ordering Facility: [facility] Address: [address] [place] [address] Performed By: #### 2 4321-2 #### [facility] CLIA [id number] [address] [place] [address] [place] Calcium [Mass/Vol] 8.6 mg/dL Normal 8.5-10.2 [facility] Comment on above: Order Comment: Speci men Type: BLOOD SPECIMEN Ordering Facility: [facility] Address: [address] [place] [address] Performed By: #### 2 4321-2 #### [facility] CLIA [id number] [address] Chloride [Moles/Vol] 96 mmol/L Low 97-105 [facility] Comment on above: Order Comment: Speci men Type: BLOOD SPECIMEN Ordering Facility: [facility] Address: [address] [place] [address] Performed By: #### 2 4321-2 #### [facility] CLIA [id number] [address] OF [facility] CO2 [Moles/Vol] 23 mmol/L Normal 22-30 [facility] Comment on above: Order Comment: Speci men Type: BLOOD SPECIMEN Ordering Facility: [facility] Address: [address] [place] [address] Performed By: #### 2 4321-2 #### [facility] CLIA [id number] [address] [place] [address] Creatinine [Mass/Vol] 0.84 mg/dL Normal 0.58-0.96 [facility] Comment on above: Order Comment: Speci men Type: BLOOD SPECIMEN Ordering Facility: [facility] Address: [address] [place] [address] Performed By: #### 2 4321-2 #### [facility] CLIA [id number] [address] [place] [address] Creatinine and Glomerular filtration rate.predicted panel (S/P/Bld) 73 mL/min/1.73m??? Normal >=60 [facility] Comment on above: Order Comment: Speci men Type: BLOOD SPECIMEN Ordering Facility: [facility] Address: [address] [place] [address] Result Comment: Meaghan mated Glomerular Filtration Rate [...] GFR. Performed By: #### 2 4321-2 #### [facility] CLIA [id number] [address] [place] [address] [place] Glucose [Mass/Vol] 134 mg/dL High 74-99 [facility] Comment on above: Order Comment: Renay adkins Type: BLOOD SPECIMEN Ordering Facility: [facility] Address: [address] [place] [address] Result Comment: The [place] [employer] (ADA) provides guidance for cutoff [...] Standards of Medical Care in Diabetes 2016, [place] [employer]. Diabetes Care. 2016.39(Suppl 1). Performed By: #### 2 4321-2 #### [facility] CLIA [id number] [address] [place] [address] [place] Potassium [Moles/Vol] 3.9 mmol/L Normal 3.7-5.1 [facility] Comment on above: Order Comment: Renay adkins Type: BLOOD SPECIMEN Ordering Facility: [facility] Address: [address] [place] [address] Performed By: #### 2 4321-2 #### [facility] CLIA [id number] [address] [place] [address] [place] Sodium [Moles/Vol] 130 mmol/L Low 136-144 [facility] Comment on above: Order Comment: Renay adkins Type: BLOOD SPECIMEN Ordering Facility: [facility] Address: [address] [place] [address] Performed By: #### 2 4321-2 #### [facility] CLIA [id number] [address] [place] [address] [place] Urea nitrogen [Mass/Vol] 27 mg/dL High 7-21 [facility] Comment on above: Order Comment: Speci men Type: BLOOD SPECIMEN Ordering Facility: [facility] Address: [address] [place] [address] Performed By: #### 2 4321-2 #### [facility] CLIA [id number] [address] CBC panel Auto (Bld)on 03-25 Erythrocyte distribution width (RBC) [Ratio] 17.8 % High 11.5-15.0 [facility] Comment on above: Order Comment: Speci men Type: BLOOD SPECIMEN Ordering Facility: [facility] Address: [address] [place] [address] Performed By: #### 1 4196-0, 97349-4 #### [facility] CLIA [id number] [address] Hematocrit (Bld) [Volume fraction] 26.8 % Low 36.0-46.0 [facility] Comment on above: Order Comment: Speci men Type: BLOOD SPECIMEN Ordering Facility: [facility] Address: [address] [place] [address] Performed By: #### 1 4196-0, 27904-7 #### [employer] [facility] CLIA [id number] [address] Hemoglobin (Bld) [Mass/Vol] 8.9 g/dL Low 11.5-15.5 [facility] Comment on above: Order Comment: Speci men Type: BLOOD SPECIMEN Ordering Facility: [facility] Address: [address] [place] [address] Performed By: #### 1 4196-0, 58466-7 #### [facility] CLIA [id number] [address] MCH (RBC) [Entitic mass] 27.1 pg Normal 26.0-34.0 [facility] Comment on above: Order Comment: Speci men Type: BLOOD SPECIMEN Ordering Facility: [facility] Address: [address] [place] [address] Performed By: #### 1 4196-0, 40618-2 #### [facility] CLIA [id number] [address] [place] MCHC (RBC) [Mass/Vol] 33.2 g/dL Normal 30.5-36.0 [facility] Comment on above: Order Comment: Speci men Type: BLOOD SPECIMEN Ordering Facility: [facility] Address: [address] [place] [address] Performed By: #### 1 4196-0, 59225-9 #### [facility] CLIA [id number] [address] OF [facility] MCV (RBC) [Entitic vol] 81.5 fL Normal 80.0-100.0 [facility] Comment on above: Order Comment: Speci men Type: BLOOD SPECIMEN Ordering Facility: [facility] Address: [address] [place] [address] Performed By: #### 1 4196-0, 63727-1 #### [facility] CLIA [id number] [address] [place] [address] [place] Nucleated RBC (Bld) [#/Vol] 0.04 10*3/uL High <0.01 [facility] Comment on above: Order Comment: Speci men Type: BLOOD SPECIMEN Ordering Facility: [facility] Address: [address] [place] [address] Performed By: #### 1 4196-0, 09022-5 #### [facility] CLIA [id number] [address] [place] [address] STATES [place] [facility] Platelet mean volume (Bld) [Entitic vol] 10.0 fL Normal 9.0-12.7 [facility] Comment on above: Order Comment: Speci men Type: BLOOD SPECIMEN Ordering Facility: [facility] Address: [address] [place] [address] Performed By: #### 1 4196-0, 36479-4 #### [facility] CLIA [id number] [address] [place] Platelets (Bld) [#/Vol] 172 10*3/uL Normal 150-400 [facility] Comment on above: Order Comment: Speci men Type: BLOOD SPECIMEN Ordering Facility: [facility] Address: [address] [place], [place] [address] Performed By: #### 1 4196-0, 37687-2 #### [facility] CLIA [id number] [address] OF [facility] RBC (Bld) [#/Vol] 3.29 10*6/uL Low 3.90-5.20 [facility] Comment on above: Order Comment: Speci men Type: BLOOD SPECIMEN Ordering Facility: [facility] Address: [address] [place] [address] Performed By: #### 1 4196-0, 41494-0 #### [facility] CLIA [id number] [address] OF [facility] WBC (Bld) [#/Vol] 13.55 10*3/uL High 3.70-11.00 [facility] Comment on above: Order Comment: Speci men Type: BLOOD SPECIMEN Ordering Facility: [facility] Address: [address] [place] [address] Performed By: #### 1 4196-0, 48431-9 #### [facility] CLIA [id number] [address] OF [facility] CNDSon 03-25-2023 CNDS HNO ID: [id number] Author: SHARAN RIVAS MD Service: Hospital Medicine [...] was found to be COVID-19 positive in [place]. Imaging showed intraperitoneal air and pneumatosis intestinalis and patient was transferred to [facility]. Pulmonology was consulted and patient [...] (more content not included)... Normal [facility] CONSULT PROGon 03-25-2023 CONSULT PROG HNO ID: [id number] Author: BRISSA LIMA RPh Service: Pharmacy Author [...] warfarin 5 mg once daily Managed at [place] [facility] 03/19: INR on arrival to [place] was 9. She was given Vitamin K [...] (SPORANOX) 200 mg ORAL BID phenol 1 [place] (CHLORASEPTIC) 1 [place] MUCOUS MEMBRANE (TOPICAL MOUTH AND THROAT) q [...] education: No- home med Signature: Brissa Lima RPh Pager/Extension: [phone] [facility] NURSING PROGon 03-25-2023 NURSING PROG HNO ID: [id number] Author: ARMEN FERNANDEZ, RN Service: Nursing Author Type: Registered Nurse Type: Nursing Progress Note Filed: 03/25/2023 14:31 Note Text: This RN spoke with Dr. Rivas regarding sepsis BPA alert, no new orders at this time, pt remains stable. Normal [facility] PT panel Coag (PPP)on 2023 INR Coag (PPP) [Relative time] 2.0 {INR} High 0.9-1.3 [facility] Comment on above: Order Comment: Renay adkins Type: BLOOD SPECIMEN Ordering Facility: [facility] Address: [address] [place] [address] Result Comment: Halle min K Antagonist (VKA) Therapeutic Range: INR 2 to 3 (Target INR of 2.5) Note: For patients treated with VKA drugs, such as warfarin, the [place] [employer] 2012 Guideline recommends [...] Chest 2012, 141:7S-47S Mitzi RA, et al. [facility] 2017, 70: 252-289 Performed By: #### 1 4196-0, 22374-8 #### [employer] [employer] [facility] CLIA [id number] [address] [place] [address] [place] PT Coag (PPP) [Time] 20.0 s High 9.7-13.0 [facility] Comment on above: Order Comment: Renay adkins Type: BLOOD SPECIMEN Ordering Facility: [facility] Address: [address] [place] [address] Performed By: #### 1 4196-0, 21977-6 #### [employer] [facility] CLIA [id number] [address] [place] [address] [place] Basic metabolic 2000 panelon 03-24-2023 Anion gap [Moles/Vol] 10 mmol/L Normal 9-18 [facility] Comment on above: Order Comment: Speci men Type: BLOOD SPECIMEN Ordering Facility: [facility] Address: [address] [place] [address] Performed By: #### 1 4196-0, 80542-0 #### [facility] CLIA [id number] [address] [place] [address] [place] Calcium [Mass/Vol] 8.8 mg/dL Normal 8.5-10.2 [facility] Comment on above: Order Comment: Speci men Type: BLOOD SPECIMEN Ordering Facility: [facility] Address: [address] [place] [address] Performed By: #### 1 4196-0, 97484-2 #### [facility] CLIA [id number] [address] [place] [address] [place] Chloride [Moles/Vol] 98 mmol/L Normal 97-105 [facility] Comment on above: Order Comment: Speci men Type: BLOOD SPECIMEN Ordering Facility: [facility] Address: [address] [place] [address] Performed By: #### 1 4196-0, 94072-5 #### [facility] CLIA [id number] [address] [place] [address] [place] CO2 [Moles/Vol] 24 mmol/L Normal 22-30 [facility] Comment on above: Order Comment: Speci men Type: BLOOD SPECIMEN Ordering Facility: [facility] Address: [address] [place] [address] Performed By: #### 1 4196-0, 94524-0 #### [facility] CLIA [id number] [address] [place] Creatinine [Mass/Vol] 0.89 mg/dL Normal 0.58-0.96 [facility] Comment on above: Order Comment: Speci men Type: BLOOD SPECIMEN Ordering Facility: [facility] Address: [address] [place] [address] Performed By: #### 1 4196-0, 92531-0 #### [facility] CLIA [id number] [address] [place] [address] OF [place] Creatinine and Glomerular filtration rate.predicted panel (S/P/Bld) 68 mL/min/1.73m??? Normal >=60 [facility] Comment on above: Order Comment: Renay adkins Type: BLOOD SPECIMEN Ordering Facility: [facility] Address: [address] [place] [address] Result Comment: Meaghan mated Glomerular Filtration Rate [...] actual GFR. Performed By: #### 1 4196-0, 12888-8 #### [facility] CLIA [id number] [address] [place] [address] [place] Glucose [Mass/Vol] 125 mg/dL High 74-99 [facility] Comment on above: Order Comment: Renay adkins Type: BLOOD SPECIMEN Ordering Facility: [facility] Address: [address] [place] [address] Result Comment: The [place] [employer] (ADA) provides guidance for cutoff [...] Standards of Medical Care in Diabetes 2016, [place] [employer]. Diabetes Care. 2016.39(Suppl 1). Performed By: #### 1 4196-0, 33317-7 #### [facility] CLIA [id number] [address] STATES [place] Potassium [Moles/Vol] 4.1 mmol/L Normal 3.7-5.1 [facility] Comment on above: Order Comment: Speci men Type: BLOOD SPECIMEN Ordering Facility: [facility] Address: [address] [place] [address] Performed By: #### 1 4196-0, 34318-0 #### [facility] CLIA [id number] [address] STATES [place] Sodium [Moles/Vol] 132 mmol/L Low 136-144 [facility] Comment on above: Order Comment: Speci men Type: BLOOD SPECIMEN Ordering Facility: [facility] Address: [address] [place] [address] Performed By: #### 1 4196-0, 53209-4 #### [facility] CLIA [id number] [address] STATES [facility] Urea nitrogen [Mass/Vol] 32 mg/dL High 7-21 [facility] Comment on above: Order Comment: Speci men Type: BLOOD SPECIMEN Ordering Facility: [facility] Address: [address] [place] [address] Performed By: #### 1 4196-0, 29042-4 #### [facility] CLIA [id number] [address] OF [facility] C diff Tox gens Stl Ql GWEN+p robeon 03-24-2023 C. difficile toxin genes GWEN+probe Ql (Stl) Negative Normal Negative for C. difficile toxin by PCR [facility] Comment on above: Order Comment: Speci men Type: STOOL SPECIMEN Ordering Facility: [facility] Address: [address] [place] [address] Performed By: #### 5 4067-4 #### [facility] CLIA [id number] [address] OF [facility] CBC panel Auto (Bld)on 03-24 Erythrocyte distribution width (RBC) [Ratio] 17.2 % High 11.5-15.0 [facility] Comment on above: Order Comment: Speci men Type: BLOOD SPECIMEN Ordering Facility: [facility] Address: [address] [place] [address] Performed By: #### 1 4196-0, 61876-1 #### [facility] CLIA [id number] [address] STATES [place] Hematocrit (Bld) [Volume fraction] 26.5 % Low 36.0-46.0 [facility] Comment on above: Order Comment: Speci men Type: BLOOD SPECIMEN Ordering Facility: [facility] Address: [address] [place] [address] Performed By: #### 1 4196-0, 90785-3 #### [facility] CLIA [id number] [address] STATES [place] Hemoglobin (Bld) [Mass/Vol] 9.1 g/dL Low 11.5-15.5 [facility] Comment on above: Order Comment: Speci men Type: BLOOD SPECIMEN Ordering Facility: [facility] Address: [address] [place] [address] Performed By: #### 1 4196-0, 74062-8 #### [facility] CLIA [id number] [address] STATES [place] MCH (RBC) [Entitic mass] 27.4 pg Normal 26.0-34.0 [facility] Comment on above: Order Comment: Speci men Type: BLOOD SPECIMEN Ordering Facility: [facility] Address: [address] [place] [address] Performed By: #### 1 4196-0, 50574-9 #### [facility] CLIA [id number] [address] STATES [place] MCHC (RBC) [Mass/Vol] 34.3 g/dL Normal 30.5-36.0 [facility] Comment on above: Order Comment: Speci men Type: BLOOD SPECIMEN Ordering Facility: [facility] Address: [address] [place] [address] Performed By: #### 1 4196-0, 99155-2 #### [facility] CLIA [id number] [address] MCV (RBC) [Entitic vol] 79.8 fL Low 80.0-100.0 [facility] Comment on above: Order Comment: Speci men Type: BLOOD SPECIMEN Ordering Facility: [facility] Address: [address] [place] [address] Performed By: #### 1 4196-0, 11720-5 #### [facility] CLIA [id number] [address] Nucleated RBC (Bld) [#/Vol] 10*3/uL Normal <0.01 [facility] Comment on above: Order Comment: Speci men Type: BLOOD SPECIMEN Ordering Facility: [facility] Address: [address] [place] [address] Performed By: #### 1 4196-0, 06135-2 #### [facility] CLIA [id number] [address] STATES [place] Platelet mean volume (Bld) [Entitic vol] 10.6 fL Normal 9.0-12.7 [facility] Comment on above: Order Comment: Speci men Type: BLOOD SPECIMEN Ordering Facility: [facility] Address: [address] [place] [address] Performed By: #### 1 4196-0, 50148-4 #### [facility] CLIA [id number] [address] OF [facility] Platelets (Bld) [#/Vol] 167 10*3/uL Normal 150-400 [facility] Comment on above: Order Comment: Speci men Type: BLOOD SPECIMEN Ordering Facility: [facility] Address: [address] [place] [address] Performed By: #### 1 4196-0, 18636-8 #### [facility] CLIA [id number] [address] [place] [address] [place] RBC (Bld) [#/Vol] 3.32 10*6/uL Low 3.90-5.20 [facility] Comment on above: Order Comment: Renay adkins Type: BLOOD SPECIMEN Ordering Facility: [facility] Address: [address] [place], [place] [address] Performed By: #### 1 4196-0, 00033-3 #### [facility] CLIA [id number] [address] OF [place] WBC (Bld) [#/Vol] 12.21 10*3/uL High 3.70-11.00 [facility] Comment on above: Order Comment: Renay adkins Type: BLOOD SPECIMEN Ordering Facility: [facility] Address: [address] [place] [address] Performed By: #### 1 4196-0, 38878-0 #### [facility] CLIA [id number] [address] CONSULT PROGon 03-24-2023 CONSULT PROG HNO ID: [id number] Author: BRISSA LIMA RPh Service: Pharmacy Author [...] warfarin 5 mg once daily Managed at [place] [facility] 03/19: INR on arrival to [place] was 9. She was given Vitamin K [...] this patient. Current Laboratory Values Recent Labs 03/24/2315703/23/23 02303/22/2332403/21/23 0425 INR 2.0* 2.1* 2.5* 3.9* Recent Labs 03/24/2315703/23/23 02303/22/2332403/21/23 0425 HB 9.1* 7.7* 8.1* 8.6* HCT [...] (SPORANOX) 200 mg ORAL BID phenol 1 [place] (CHLORASEPTIC) 1 [place] MUCOUS MEMBRANE (TOPICAL MOUTH AND THROAT) q [...] education: No- home med Signature: Brissa Lima [facility] Pager/Extension: [phone] Normal [facility] PT panel Coag (PPP)on 2023 INR Coag (PPP) [Relative time] 2.0 {INR} High 0.9-1.3 [facility] Comment on above: Order Comment: Speci men Type: BLOOD SPECIMEN Ordering Facility: [facility] Address: [address] [place] [address] Result Comment: Halle min K Antagonist (VKA) Therapeutic Range: INR 2 to 3 (Target INR of 2.5) Note: For patients treated with VKA drugs, such as warfarin, the [place] [employer] 2012 Guideline recommends [...] Chest 2012, 141:7S-47S Mitzi RA, et al. [facility] 2017, 70: 252-289 Performed By: #### 1 4196-0, 54182-4 #### [facility] CLIA [id number] [address] STATES [place] PT Coag (PPP) [Time] 19.7 s High 9.7-13.0 [facility] Comment on above: Order Comment: Renay adkins Type: BLOOD SPECIMEN Ordering Facility: [facility] Address: [address] [place] [address] Performed By: #### 1 4196-0, 06095-2 #### [facility] CLIA [id number] [address] [place] [address] STATES OF [facility] CBC W Ordered Manual Differe ntial panel (Bld)on 03-23-2023 ANISOCYTOSIS Present Normal [facility] Comment on above: Order Comment: Renay adkins Type: BLOOD SPECIMEN Ordering Facility: [facility] Address: [address] [place] [address] Performed By: #### 1 4196-0, 85727-8 #### [facility] CLIA [id number] [address] [place] [address] [place] Basophils (Bld) [#/Vol] 0.00 10*3/uL Normal <0.11 [facility] Comment on above: Order Comment: Renay adkins Type: BLOOD SPECIMEN Ordering Facility: [facility] Address: [address] [place] [address] Performed By: #### 1 4196-0, 89077-8 #### [facility] CLIA [id number] [address] Basophils/100 WBC (Bld) 0.0 % Normal [facility] Comment on above: Order Comment: Speci men Type: BLOOD SPECIMEN Ordering Facility: [facility] Address: [address] [place] [address] Performed By: #### 1 4196-0, 21422-2 #### [facility] CLIA [id number] [address] OF [facility] Differential cell count method Nom (Bld) Manual Normal [facility] Comment on above: Order Comment: Speci men Type: BLOOD SPECIMEN Ordering Facility: [facility] Address: [address] [place] [address] Performed By: #### 1 4196-0, 12150-5 #### [facility] CLIA [id number] [address] STATES [place] Eosinophils (Bld) [#/Vol] 0.00 10*3/uL Normal <0.46 [facility] Comment on above: Order Comment: Speci men Type: BLOOD SPECIMEN Ordering Facility: [facility] Address: [address] [place] [address] Performed By: #### 1 4196-0, 31932-7 #### [facility] CLIA [id number] [address] Eosinophils/100 WBC (Bld) 0.0 % Normal [facility] Comment on above: Order Comment: Speci men Type: BLOOD SPECIMEN Ordering Facility: [facility] Address: [address] [place] [address] Performed By: #### 1 4196-0, 75194-8 #### [facility] CLIA [id number] [address] STATES [place] Erythrocyte distribution width (RBC) [Ratio] 16.6 % High 11.5-15.0 [facility] Comment on above: Order Comment: Speci men Type: BLOOD SPECIMEN Ordering Facility: [facility] Address: [address] [place] [address] Performed By: #### 1 4196-0, 59528-2 #### [facility] CLIA [id number] [address] STATES [place] Hematocrit (Bld) [Volume fraction] 22.8 % Low 36.0-46.0 [facility] Comment on above: Order Comment: Speci men Type: BLOOD SPECIMEN Ordering Facility: [facility] Address: [address] [place] [address] Performed By: #### 1 4196-0, 35715-1 #### [facility] CLIA [id number] [address] [place] Hemoglobin (Bld) [Mass/Vol] 7.7 g/dL Low 11.5-15.5 [facility] Comment on above: Order Comment: Speci men Type: BLOOD SPECIMEN Ordering Facility: [facility] Address: [address] [place] [address] Performed By: #### 1 4196-0, 56979-1 #### [facility] CLIA [id number] [address] [place] [address] OF [place] Lymphocytes (Bld) [#/Vol] 0.88 10*3/uL Low 1.00-4.00 [facility] Comment on above: Order Comment: Speci men Type: BLOOD SPECIMEN Ordering Facility: [facility] Address: [address] [place] [address] Performed By: #### 1 4196-0, 13907-4 #### [facility] CLIA [id number] [address] [place] [address] [place] Lymphocytes/100 WBC (Bld) 7.0 % Normal [facility] Comment on above: Order Comment: Speci men Type: BLOOD SPECIMEN Ordering Facility: [facility] Address: [address] [place] [address] Performed By: #### 1 4196-0, 81465-3 #### [facility] CLIA [id number] [address] [place] MCH (RBC) [Entitic mass] 27.3 pg Normal 26.0-34.0 [facility] Comment on above: Order Comment: Speci men Type: BLOOD SPECIMEN Ordering Facility: [facility] Address: [address] [place] [address] Performed By: #### 1 4196-0, 98797-8 #### [facility] CLIA [id number] [address] MCHC (RBC) [Mass/Vol] 33.8 g/dL Normal 30.5-36.0 [facility] Comment on above: Order Comment: Speci men Type: BLOOD SPECIMEN Ordering Facility: [facility] Address: [address] [place] [address] Performed By: #### 1 4196-0, 16739-8 #### [facility] CLIA [id number] [address] [place] [address] MCV (RBC) [Entitic vol] 80.9 fL Normal 80.0-100.0 [facility] Comment on above: Order Comment: Speci men Type: BLOOD SPECIMEN Ordering Facility: [facility] Address: [address] [place] [address] Performed By: #### 1 4196-0, 85972-6 #### [facility] CLIA [id number] [address] META% 2.0 % Normal [facility] Comment on above: Order Comment: Speci men Type: BLOOD SPECIMEN Ordering Facility: [facility] Address: [address] [place] [address] Performed By: #### 1 4196-0, 41937-4 #### [facility] CLIA [id number] [address] OF [place] Monocytes (Bld) [#/Vol] 1.00 10*3/uL High <0.87 [facility] Comment on above: Order Comment: Speci men Type: BLOOD SPECIMEN Ordering Facility: [facility] Address: [address] [place] [address] Performed By: #### 1 4196-0, 48261-9 #### [facility] CLIA [id number] [address] Monocytes/100 WBC (Bld) 8.0 % Normal [facility] Comment on above: Order Comment: Speci men Type: BLOOD SPECIMEN Ordering Facility: [facility] Address: [address] [place] [address] Performed By: #### 1 4196-0, 46207-4 #### [facility] CLIA [id number] [address] OF [place] MYELO% 1.0 % Normal [facility] Comment on above: Order Comment: Speci men Type: BLOOD SPECIMEN Ordering Facility: [facility] Address: [address] [place] [address] Performed By: #### 1 4196-0, 36156-4 #### [facility] CLIA [id number] [address] Neutrophils (Bld) [#/Vol] 10.25 10*3/uL High 1.45-7.50 [facility] Comment on above: Order Comment: Speci men Type: BLOOD SPECIMEN Ordering Facility: [facility] Address: [address] [place] [address] Performed By: #### 1 4196-0, 36058-7 #### [facility] CLIA [id number] [address] Neutrophils/100 WBC (Bld) 82.0 % Normal [facility] Comment on above: Order Comment: Speci men Type: BLOOD SPECIMEN Ordering Facility: [facility] Address: [address] [place] [address] Performed By: #### 1 4196-0, 29411-8 #### [facility] CLIA [id number] [address] OF [place] Nucleated RBC (Bld) [#/Vol] 10*3/uL Normal <0.01 [facility] Comment on above: Order Comment: Speci men Type: BLOOD SPECIMEN Ordering Facility: [facility] Address: [address] [place] [id number] Performed By: #### 1 4196-0, 05603-2 #### [facility] CLIA [id number] [address] Nucleated RBC/100 WBC (Bld) [Ratio] 0.0 /100 WBC Normal [facility] Comment on above: Order Comment: Speci men Type: BLOOD SPECIMEN Ordering Facility: [facility] Address: [facility] [place] [address] Performed By: #### 1 4196-0, 50405-7 #### [facility] CLIA [id number] [address] Ovalocytes LM Ql (Bld) Few Normal [facility] Comment on above: Order Comment: Speci men Type: BLOOD SPECIMEN Ordering Facility: [facility] Address: [address] [place] [address] Performed By: #### 1 4196-0, 84193-7 #### [facility] CLIA [id number] [address] Platelet mean volume (Bld) [Entitic vol] 10.5 fL Normal 9.0-12.7 [facility] Comment on above: Order Comment: Speci men Type: BLOOD SPECIMEN Ordering Facility: [facility] Address: [address] [place] [address] Performed By: #### 1 4196-0, 93465-2 #### [facility] CLIA [id number] [address] OF [place] Platelets (Bld) [#/Vol] 157 10*3/uL Normal 150-400 [facility] Comment on above: Order Comment: Speci men Type: BLOOD SPECIMEN Ordering Facility: [facility] Address: [address] [place] [address] Performed By: #### 1 4196-0, 90768-6 #### [facility] CLIA [id number] [address] OF [place] Platelets Estimate (Bld) [#/Vol] Adequate Normal [facility] Comment on above: Order Comment: Speci men Type: BLOOD SPECIMEN Ordering Facility: [facility] Address: [address] [place] [address] Performed By: #### 1 4196-0, 25147-6 #### [facility] CLIA [id number] [address] Polychromasia LM Ql (Bld) Slight Normal [facility] Comment on above: Order Comment: Speci men Type: BLOOD SPECIMEN Ordering Facility: [facility] Address: [address] [place] [address] Performed By: #### 1 4196-0, 67726-0 #### [facility] CLIA [id number] [address] RBC (Bld) [#/Vol] 2.82 10*6/uL Low 3.90-5.20 [facility] Comment on above: Order Comment: Speci men Type: BLOOD SPECIMEN Ordering Facility: [facility] Address: [address] [place] [address] Performed By: #### 1 4196-0, 92180-0 #### [facility] CLIA [id number] [address] [place] [address] RED CELL MORPH Reviewed: see result s of individual morphologies Normal [facility] Comment on above: Order Comment: Speci men Type: BLOOD SPECIMEN Ordering Facility: [facility] Address: [address] [place] [address] Performed By: #### 1 4196-0, 69591-3 #### [facility] CLIA [id number] [address] WBC (Bld) [#/Vol] 12.50 10*3/uL High 3.70-11.00 [facility] Comment on above: Order Comment: Speci men Type: BLOOD SPECIMEN Ordering Facility: [facility] Address: [address] [place] [address] Performed By: #### 1 4196-0, 95927-0 #### [facility] CLIA [id number] [address] OF [facility] CNPNon 03-23-2023 [place] Telephone ([place]) HAYDEE BUSTAMANTE ([id number]) 1945 F Date Time Provider Department 03/23/23 RACHELLE LEONARD During your visit today, we recorded the following information about you: Rachelle Leonard, CONNIE.DIE PRESSER 03/23/2023 5:17 PM Signed Please schedule patient [...] (FLONASE) 50 mcg/actuation nasal spray Use 1 [place] in each nostril once daily. - pantoprazole DR (PROTONIX) 40 mg tablet Take 1 tablet by mouth once daily. - albuterol HFA (PROAIR HFA) 90 mcg/actuation inhaler Inhale 2 Puffs as instructed every 4 hours as needed. - vit A,C,H-Aado-Sdlimx (OCUVITE PRESERVISION) 2,148 mcg-113 mg-45 mg-17.4mg tab [...] by this patient by: PATIENT Muna Harris (Director Mobile) [facility] for residential medications. 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 Normal [facility] CONSULTon 03-23-2023 CONSULT HNO ID: [id number] Author: CHARLOTTE LAZO MD Service: Cardiovascular Medicine [...] positive rheumatoid factor (HCC) 03/07/2015 Dr. Hurley ([facility]) Unspecified hemorrhoids without mention of [...] SPINE FUSN,POST INTERBODY 2011 Dr. Armando at [facility]. Diskectomy and laminectomy PAST SURGICAL [...] nasal spray No Yes Sig: Use 1 [place] in each nostril once daily. gabapentin (NEURONTIN) [...] (more content not included)... Normal [facility] CONSULT PROGon 03-23-2023 CONSULT PROG HNO ID: [id number] Author: DANY BECKWITH RPh Service: Pharmacy Author Type: Pharmacist Type: Consult Progress Note Filed: 03/23/2023 17:00 Note Text: PHARMACY ANTICOAGULATION CONSULT PATIENT NAME: Haydee Bustamante DATE of SERVICE: 03/23/2023 TIME of SERVICE: 4:06 PM Indication for Anticoagulation: DVT Goal INR: 2.0 to 3.0 Expected Duration of Therapy: Indefinite Assessment: New Start: No Home Dose: Warfarin 5mg once daily Managed at [place] [facility] 03/19: INR on arrival to [place] was 9. She was given Vitamin K [...] (SPORANOX) 200 mg ORAL BID phenol 1 [place] (CHLORASEPTIC) 1 [place] MUCOUS MEMBRANE (TOPICAL MOUTH AND THROAT) q [...] patient received education: No Signature: Dany Beckwith [facility] Pager/Extension: [phone] Normal [facility] CONSULT PROG HNO ID: [id number] Author: RACHELLE LEONARD APRN.DIE PRESSER Service: Infectious Disease Author Type: Nurse Practitioner Type: Consult Progress Note Filed: 03/23/2023 17:10 Note Text: PROGRESS NOTE INFECTIOUS DISEASE BRIEF SUMMARY: 77-year-old female history of rheumatoid arthritis on Humira and methotrexate, 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 COVID-positive -Positive at [place], negative at [facility] 4. RA on Humira and methotrexate 5. [...] 200 mg, ORAL, 2 TIMES DAILY -- 03/22/231829 ciprofloxacin HCl 500 mg tab(s) (CIPRO) 500 [...] (SPORANOX) 200 mg ORAL BID phenol 1 [place] (CHLORASEPTIC) 1 [place] MUCOUS MEMBRANE (TOPICAL MOUTH AND THROAT) q [...] (more content not included)... Normal [facility] NURSING PROGon 03-23-2023 NURSING PROG HNO ID: [id number] Author: JOHANNA CAPPS RN Service: ? Author Type: Registered Nurse Type: Nursing Progress Note Filed: 03/23/2023 18:59 Note Text: 1700: Pt refused Warfarin dose due to concerns for INR levels. Sound Silver notified; plan of care ongoing. Normal [facility] PATHOLOGIST INTERPRETATION C BC/DIFFon 03-23-2023 Metal Painter review Donte (Unsp spec) [Interp] Reviewed by Jamarcus Blue MD [facility] Comment on above: Order Comment: Speci men Type: BLOOD SPECIMEN Ordering Facility: [facility] Address: [address] [place] [address] Performed By: #### 1 4196-0, 64350-4 #### [facility] CLIA [id number] [address] STAFF REVIEW, CBCDIF Normal [facility] Comment on above: Order Comment: Renay adkins Type: BLOOD SPECIMEN Ordering Facility: [facility] Address: [address] [place] [address] Result Comment: Norm ocytic anemia with slight polychromasia and absolute neutrophilic leukocytosis with left shift. Performed By: #### 1 4196-0, 31625-5 #### [facility] CLIA [id number] [address] PT panel Coag (PPP)on 2023 INR Coag (PPP) [Relative time] 2.1 {INR} High 0.9-1.3 [facility] Comment on above: Order Comment: Renay adkins Type: BLOOD SPECIMEN Ordering Facility: [facility] Address: [address] [place] [address] Result Comment: Halle min K Antagonist (VKA) Therapeutic Range: INR 2 to 3 (Target INR of 2.5) Note: For patients treated with VKA drugs, such as warfarin, the [place] [employer] 2012 Guideline recommends [...] 70: 252-289 Performed By: #### 1 4196-0, 57475-1 #### [facility] CLIA [id number] [address] PT Coag (PPP) [Time] 21.0 s High 9.7-13.0 [facility] Comment on above: Order Comment: Speci men Type: BLOOD SPECIMEN Ordering Facility: [facility] Address: [facility] [place] [address] Performed By: #### 1 4196-0, 32775-0 #### [facility] CLIA [id number] [address] [place] THERAPY NTon 03-23-2023 THERAPY NT HNO ID: [id number] Author: UMANG EASLEY, PT Service: Physical Therapy Author Type: Physical Therapist Type: Therapy (PT/OT/Speech/Resp) Filed: 03/23/2023 15:14 Note Text: Physical Therapy Evaluation Summary SERVICE DATE: 03/23/2023 SERVICE TIME: 1340 to 1355 ROOM: [place] [address] PT 6 Clicks Score: 22 DISCHARGE RECOMMENDATIONS Home ASSESSMENT Response to Therapy Interventions: Good Participation in Activities PRECAUTIONS CURRENT HOSPITAL COURSE presented with hemoptysis, found to be COVID positive at [place]. Imaging showed intraperitoneal air and pneumatosis intestinalia, [...] Skilled Need TREATMENT INTERVENTIONS Evaluation $ Evaluation-Low (99786) Billed Units: 1 unit Skilled Treatment Time [...] Services Discontinued: No skilled needs SIGNATURE: Umang Easley, PT PATIENT NAME: Haydee Bustamante DATE: March 23, 2023 TIME: 3:13 PM Normal [facility] THERAPY NT HNO ID: [id number] Author: LORI SHORT OTR/Cabrera Service: Occupational Therapy Author Type: Occupational Therapist Type: Therapy (PT/OT/Speech/Resp) Filed: 03/23/2023 11:43 Note Text: Occupational Therapy Evaluation Summary SERVICE DATE: 03/23/2023 SERVICE TIME: 858 to 921 ROOM: [place] [address] OT 6 Clicks Score: 22 DISCHARGE RECOMMENDATIONS [...] hemoptysis, found to be COVID positive at [place]. Imaging showed intraperitoneal air and pneumatosis intestinalia, [...] daily living (ADL) TREATMENT INTERVENTIONS Evaluation, Self Prison Management (80509) Timed Code Treatment (minutes): 8 Skilled Treatment Time (minutes): 23 $ Evaluation - Low (52339) Billed Units: 1 unit Self Prison Management (71203) Treatment Minutes: 8 $ Self Prison Management (66753) Billed Units: 1 unit TRAINING AND EDUCATION [...] DATE: March 23, 2023 TIME: 11:[address] [facility] ALLIED HEALTHon 03-22-2023 ALLIED HEALTH HNO ID: [id number] Author: TIMUR HERNANDEZ RT(R) Service: Radiology Author Type: Molder Trimmer Type: Allied Health Filed: 03/22/2023 09:43 Note [...] PATIENT PRESENTS WITH AN IMPLANTABLE OR ATTACHED NURSERY LABORER: No ALLERGIES: Reviewed and unchanged CONTRAST ALLERGY: [...] 2023 TIME: 9:43 AM Normal [facility] CBC panel Auto (Bld)on 03-22 Erythrocyte distribution width (RBC) [Ratio] 16.0 % High 11.5-15.0 [facility] Comment on above: Order Comment: Speci men Type: BLOOD SPECIMEN Ordering Facility: [facility] Address: [address] [place], [place] [address] Performed By: #### 1 4196-0, 36036-6 #### [facility] CLIA [id number] [address] Hematocrit (Bld) [Volume fraction] 23.1 % Low 36.0-46.0 [facility] Comment on above: Order Comment: Speci men Type: BLOOD SPECIMEN Ordering Facility: [facility] Address: [address] [place] [address] Performed By: #### 1 4196-0, 01009-6 #### [facility] CLIA [id number] [address] OF [facility] Hemoglobin (Bld) [Mass/Vol] 8.1 g/dL Low 11.5-15.5 [facility] Comment on above: Order Comment: Speci men Type: BLOOD SPECIMEN Ordering Facility: [facility] Address: [address] [place] [address] Performed By: #### 1 4196-0, 60696-5 #### [facility] CLIA [id number] [address] [place] [address] MCH (RBC) [Entitic mass] 27.4 pg Normal 26.0-34.0 [facility] Comment on above: Order Comment: Speci men Type: BLOOD SPECIMEN Ordering Facility: [facility] Address: [address] [place] [address] Performed By: #### 1 4196-0, 92336-1 #### [facility] CLIA [id number] [address] [place] [address] OF [facility] MCHC (RBC) [Mass/Vol] 35.1 g/dL Normal 30.5-36.0 [facility] Comment on above: Order Comment: Speci men Type: BLOOD SPECIMEN Ordering Facility: [facility] Address: [address] [place] [address] Performed By: #### 1 4196-0, 96472-3 #### [facility] CLIA [id number] [address] OF [facility] MCV (RBC) [Entitic vol] 78.0 fL Low 80.0-100.0 [facility] Comment on above: Order Comment: Speci men Type: BLOOD SPECIMEN Ordering Facility: [facility] Address: [address] [place] [address] Performed By: #### 1 4196-0, 34871-2 #### [facility] CLIA [id number] [address] OF [place] Nucleated RBC (Bld) [#/Vol] 10*3/uL Normal <0.01 [facility] Comment on above: Order Comment: Speci men Type: BLOOD SPECIMEN Ordering Facility: [facility] Address: [address] [place] [address] Performed By: #### 1 4196-0, 44803-5 #### [facility] CLIA [id number] [address] [place] [address] [place] Platelet mean volume (Bld) [Entitic vol] 10.3 fL Normal 9.0-12.7 [facility] Comment on above: Order Comment: Speci men Type: BLOOD SPECIMEN Ordering Facility: [facility] Address: [address] [place] [address] Performed By: #### 1 4196-0, 32304-8 #### [facility] CLIA [id number] [address] [place] Platelets (Bld) [#/Vol] 148 10*3/uL Low 150-400 [facility] Comment on above: Order Comment: Speci men Type: BLOOD SPECIMEN Ordering Facility: [facility] Address: [address] [place] [address] Performed By: #### 1 4196-0, 09616-6 #### [facility] CLIA [id number] [address] [place] [address] [place] RBC (Bld) [#/Vol] 2.96 10*6/uL Low 3.90-5.20 [facility] Comment on above: Order Comment: Speci men Type: BLOOD SPECIMEN Ordering Facility: [facility] Address: [address] [place] [address] Performed By: #### 1 4196-0, 65861-8 #### [facility] CLIA [id number] [address] [place] [address] [place] WBC (Bld) [#/Vol] 10.53 10*3/uL Normal 3.70-11.00 [facility] Comment on above: Order Comment: Speci men Type: BLOOD SPECIMEN Ordering Facility: [facility] Address: [address] [place] [address] [place] [address] Performed By: #### 1 4196-0, 26886-4 #### [facility] CLIA [id number] 1 [place] [id number] [place] CONSULT PROGon 03-22-2023 CONSULT PROG HNO ID: [id number] Author: MAGAN VILLAFUERTE DO Service: Pulmonary Disease [...] enzymes), -GERD, -HTN, -h/o disseminated Histoplasmosis in 6464-5553 managed on itraconazole, ne H an M [...] inside the abdomen. INR on arrival to [place] was 9. She given Vitamin K and transferred here. 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 No sustained Rx with Amiodarone, Nitrofurantoin, cancer chemotherapy. Smoking h/o: 18-mmxk-jsop former smoker, quit in 1989. Late was a heavy smoker Subjective Na 128 PC going down INR >8 Histoplasma positive Histoplasma H and M band present Objective PAST MEDICAL HISTORY Diagnosis Date Anemia Bone marrow involvement with histoplasmosis Bronchiectasis (HCC) COPD (chronic obstructive pulmonary disease) ([facility]) Disseminated histoplasmosis Colitis, immunosuppression, 01/2018. Diverticulosis of colon (without mention of hemorrhage) Diverticulosis DVT, recurrent, lower extremity, acute ([facility]) 12/10/2014 Esophageal reflux Hiatal hernia 02/25/2018 Hypertension Lung nodule Personal history of unspecified urinary disorder Rheumatoid arthritis involving multiple sites with positive rheumatoid factor ([facility]) 03/07/2015 Dr. Hurley ([facility]) Unspecified hemorrhoids without mention of [...] SPINE FUSN,POST INTERBODY 2011 Dr. Armando at [facility]. Diskectomy and laminectomy PAST SURGICAL HISTORY OF 03/07/1999 removal facial lesion PAST SURGICAL HISTORY OF 08/17/2014 excision soft tissue mass left index finger TONSILLECTOMY PRIMARY/SECONDARY TRANSCATH RETRIEVAL,PERCUT 12/28/2006 medication ALL (more content not included)... Normal [facility] CT ABD/PEL W IVCONon 024 CT ABD/PEL W IVCON * * *Final Report* * * * * * SEE BOTTOM OF REPORT FOR ADDENDED TEXT * * * DATE OF EXAM: Mar 22 2023 9:46AM [facility] 0530 - CT ABD/PEL W IVCON [...] on 3:17. Stable dating back to 04/04/2018. 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 IMPRESSION: [...] be communicated with the ordering provider via Nearpod staff message or phone message by Imaging Support Services within 2 business days of report finalization. ========= Algorithms for management of incidental imaging findings can be found on the [facility] Intranet Sharepoint site at: [email or web address]/document [email or web address]/[email or web address]/Managing %20Incidental%20Findi ngs%20at%20Imaging/Forms/Al lItems.aspx Science Instructor: PSCIain Transcribe Date/Time: Mar 22 2023 10:59A Dictated by : MIRIAN CHENEY MD This examination was interpreted and the report reviewed and electronically signed by: MIRIAN CHENEY MD on Mar 22 2023 10:43AM EST This document has been addended by: MIRIAN CHENEY MD on Mar 22 2023 11:00AM EST [id number] Normal [facility] Comp Metab 2000 Pnl SerPlon 03-22-2023 Bilirubin [Mass/Vol] 0.8 mg/dL Normal 0.2-1.3 [facility] Comment on above: Order Comment: Speci men Type: BLOOD SPECIMENOrdering Facility: [facility] Address: [address] [place] [address] Performed By: #### 2 4325-3, 46063-2 ####[facility] [id number] [address] OF [facility] Comprehensive metabolic 2000 panelon 03-22-2023 Albumin [Mass/Vol] 2.7 g/dL Low 3.9-4.9 [facility] Comment on above: Order Comment: Speci men Type: BLOOD SPECIMENOrdering Facility: [facility] Address: [address] [place] [address] Performed By: #### 2 4325-3, 71013-9 ####[facility] [id number] [address] [place] ALP [Catalytic activity/Vol] 201 U/L High 34-123 [facility] Comment on above: Order Comment: Speci men Type: BLOOD SPECIMENOrdering Facility: [facility] Address: [address] [place] [address] Performed By: #### 2 4325-3, 24627-9 ####[facility]IA [id number] [place] [address] [place] ALT With P-5'-P [Catalytic activity/Vol] 54 U/L High 7-38 [facility] Comment on above: Order Comment: Speci men Type: BLOOD SPECIMENOrdering Facility: [facility] Address: [address] [place] [address] Performed By: #### 2 4325-3, ####[facility]IA [id number] [place] [address] [place] Anion gap [Moles/Vol] 8 mmol/L Low 9-18 [facility] Comment on above: Order Comment: Speci men Type: BLOOD SPECIMENOrdering Facility: [facility] Address: [address] [place] [address] Performed By: #### 2 4325-3, 03600-0 ####[facility] [id number] [address] [place] AST With P-5'-P [Catalytic activity/Vol] 33 U/L Normal 13-35 [facility] Comment on above: Order Comment: Speci men Type: BLOOD SPECIMENOrdering Facility: [facility] Address: [address] [place] [address] Performed By: #### 2 4325-3, 86579-1 ####[facility] [id number] [address] [place] Calcium [Mass/Vol] 8.8 mg/dL Normal 8.5-10.2 [facility] Comment on above: Order Comment: Speci men Type: BLOOD SPECIMENOrdering Facility: [facility] Address: [address] [place] [address] Performed By: #### 2 4325-3, 72885-5 ####[facility] [id number] [address] [place] Chloride [Moles/Vol] 100 mmol/L Normal 97-105 [facility] Comment on above: Order Comment: Speci men Type: BLOOD SPECIMENOrdering Facility: [facility] Address: [address] [place] [address] Performed By: #### 2 4325-3, 32279-6 ####[facility]ORY[facility]IA [id number] [place] [id number] [facility] CO2 [Moles/Vol] 26 mmol/L Normal 22-30 [facility] Comment on above: Order Comment: Speci men Type: BLOOD SPECIMENOrdering Facility: [facility] Address: [address] [place] [address] Performed By: #### 2 4325-3, 90784-2 ####[facility] [id number] [address] Creatinine [Mass/Vol] 0.83 mg/dL Normal 0.58-0.96 [facility] Comment on above: Order Comment: Speci men Type: BLOOD SPECIMENOrdering Facility: [facility] Address: [address] [place] [address] Performed By: #### 2 4325-3, 83161-6 ####[facility]IA [id number] [address] Creatinine and Glomerular filtration rate.predicted panel (S/P/Bld) 74 mL/min/1.73m??? Normal >=60 [facility] Comment on above: Order Comment: Speci men Type: BLOOD SPECIMENOrdering Facility: [facility] Address: [address] [place] [address] Result Comment: Meaghan mated Glomerular Filtration Rate [...] actual GFR. Performed By: #### 2 4325-3, 03152-8 ####[facility] [id number] [place] [address] [place] Glucose [Mass/Vol] 158 mg/dL High 74-99 [facility] Comment on above: Order Comment: Renay adkins Type: BLOOD SPECIMENOrdering Facility: [facility] Address: [address] [place] [address] Result Comment: The [place] [employer] (ADA) provides guidance for cutoff [...] Standards of Medical Care in Diabetes 2016, [place] [employer]. Diabetes Care. 2016.39(Suppl 1). Performed By: #### 2 4325-3, 25378-2 ####[facility] [id number] [place] [address] [place] Potassium [Moles/Vol] 4.0 mmol/L Normal 3.7-5.1 [facility] Comment on above: Order Comment: Renay adkins Type: BLOOD SPECIMENOrdering Facility: [facility] Address: [address] [place] [address] Performed By: #### 2 4325-3, 19214-0 ####[facility]ORYCLIA [id number] [place] [address] [place] Protein [Mass/Vol] 4.9 g/dL Low 6.3-8.0 [facility] Comment on above: Order Comment: Renay adkins Type: BLOOD SPECIMENOrdering Facility: [facility] Address: [address] [place] [address] Performed By: #### 2 4325-3, 64685-2 ####[facility]ORYCLIA [id number] [place] [address] [place] Sodium [Moles/Vol] 134 mmol/L Low 136-144 [facility] Comment on above: Order Comment: Speci men Type: BLOOD SPECIMENOrdering Facility: [facility] Address: [address] [place] [address] Performed By: #### 2 4325-3, 19945-0 ####[facility]ORYCLIA [id number] [place] [address] [place] Urea nitrogen [Mass/Vol] 24 mg/dL High 7-21 [facility] Comment on above: Order Comment: Speci men Type: BLOOD SPECIMENOrdering Facility: [facility] Address: [address] [place] [address] Performed By: #### 2 4325-3, 36120-6 ####[facility]ORYCLIA [id number] [place] [id number] [place] ECHOon 03-22-2023 Echocardiography Echocardiography Rep ort: Transthoracic Echo [facility] Date of service: 03/22/2023 12:34:35 PM [facility] Ordering physician: AMERICA MAYER Indication: Re-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 heart disease with change in clinical status Technologist: [facility] Interpreting physician: Jb Richardson MD [...] (more content not included)... Normal [facility] Haptoglob SerPl-mCncon 03-22 Haptoglobin [Mass/Vol] 95 mg/dL Normal 31-238 [facility] Comment on above: Order Comment: Speci men Type: BLOOD SPECIMEN Ordering Facility: [facility] Address: [address] [place] [address] [place] [address] Performed By: #### 1 4196-0, 54717-6 #### [facility] CLIA [id number] [address] [place] [address] [place] Hepatic function 2000 panelo n 03-22-2023 Albumin [Mass/Vol] 2.6 g/dL Low 3.9-4.9 [facility] Comment on above: Order Comment: Speci men Type: BLOOD SPECIMENOrdering Facility: [facility] Address: [address] [place] [address] Performed By: #### 2 4325-3, 00830-1 ####[facility]ORYCLIA [id number] [place] [address] [place] ALP [Catalytic activity/Vol] 200 U/L High 34-123 [facility] Comment on above: Order Comment: Speci men Type: BLOOD SPECIMENOrdering Facility: [facility] Address: [address] [place] [address] Performed By: #### 2 4325-3, 23354-8 ####[facility]ORYCLIA [id number] [address] [place] ALT With P-5'-P [Catalytic activity/Vol] 53 U/L High 7-38 [facility] Comment on above: Order Comment: Speci men Type: BLOOD SPECIMENOrdering Facility: [facility] Address: [address] [place] [address] Performed By: #### 2 4325-3, 25356-1 ####[facility]ORYCLIA [id number] [place] [address] [place] AST With P-5'-P [Catalytic activity/Vol] 38 U/L High 13-35 [facility] Comment on above: Order Comment: Speci men Type: BLOOD SPECIMENOrdering Facility: [facility] Address: [address] [place] [address] Performed By: #### 2 4325-3, 88978-7 ####[facility] [id number] [place] [address] [place] Bilirubin.conjugated [Mass/Vol] 0.3 mg/dL High <0.2 [facility] Comment on above: Order Comment: Speci men Type: BLOOD SPECIMENOrdering Facility: [facility] Address: [address] [place] [address] Performed By: #### 2 4325-3, 21241-7 ####[facility]ORY[facility]IA [id number] [address] [place] Protein [Mass/Vol] 5.1 g/dL Low 6.3-8.0 [facility] Comment on above: Order Comment: Speci men Type: BLOOD SPECIMENOrdering Facility: [facility] Address: [address] [place] [address] Performed By: #### 2 4325-3, 35439-7 ####[facility]ORYCLIA [id number] [address] [place] LDH SerPl-cCncon 03-22-2023 LDH [Catalytic activity/Vol] 300 U/L High 135-214 [facility] Comment on above: Order Comment: Speci men Type: BLOOD SPECIMEN Ordering Facility: [facility] Address: [address] [place] [address] Performed By: #### 1 4196-0, 21191-7 #### [facility] CLIA [id number] [address] [place] [address] [place] Lactate (Bld) [Moles/Vol]on 03-22-2023 Lactate [Moles/Vol] 1.7 mmol/L Normal 0.5-2.2 [facility] Comment on above: Order Comment: Speci men Type: BLOOD SPECIMEN Ordering Facility: [facility] Address: [address] [place] [address] Performed By: #### 1 4196-0, 99151-3 #### [facility] CLIA [id number] [address] [place] [address] [place] NURSING PROGon 03-22-2023 NURSING PROG HNO ID: [id number] Author: OJ MOLINA RN Service: Nursing Author Type: Registered Nurse Type: Nursing Progress Note Filed: 03/22/2023 09:58 Note Text: Pt to remain in isolation d/t positive covid test at [place] and pt being immunocompromised. Orders received from Dr Geno Hart. Normal [facility] PT panel Coag (PPP)on 2023 INR Coag (PPP) [Relative time] 2.5 {INR} High 0.9-1.3 [facility] Comment on above: Order Comment: Renay adkins Type: BLOOD SPECIMENOrdering Facility: [facility] Address: [address] [place] [address] Result Comment: Halle min K Antagonist (VKA) Therapeutic Range: INR 2 to 3 (Target INR of 2.5) Note: For patients treated with VKA drugs, such as warfarin, the [place] [employer] 2012 Guideline recommends [...] Chest 2012, 141:7S-47S Mitzi RA et al. [facility] 2017, 70: 252-289 Performed By: #### 3 4528-0 ####[facility]ORY[facility]IA [id number] [address] [place] PT Coag (PPP) [Time] 24.6 s High 9.7-13.0 [facility] Comment on above: Order Comment: Renay adkins Type: BLOOD SPECIMENOrdering Facility: [facility] Address: [address] [place] [address] Performed By: #### 3 4528-0 ####[facility]ORYCLIA [id number] [address] [place] Retics #on 03-22-2023 Reticulocytes (Bld) [#/Vol] 0.53011 10*3/uL Normal 0.018-0.10 0 [facility] Comment on above: Order Comment: Speci men Type: BLOOD SPECIMEN Ordering Facility: [facility] Address: [address] [place] [address] Performed By: #### 1 4196-0, 17452-2 #### [facility] CLIA [id number] [address] Reticulocytes (Bld) [#/Vol]o n 03-22-2023 Reticulocytes/100 RBC (Bld) 2.9 % High 0.4-2.0 [facility] Comment on above: Order Comment: Speci men Type: BLOOD SPECIMEN Ordering Facility: [facility] Address: [address] [place] [address] Performed By: #### 1 4196-0, 48149-4 #### [facility] CLIA [id number] [address] [place] [address] OF [facility] CBC panel Auto (Bld)on 03-21 Erythrocyte distribution width (RBC) [Ratio] 16.2 % High 11.5-15.0 [facility] Comment on above: Order Comment: Speci men Type: BLOOD SPECIMEN Ordering Facility: [facility] Address: [address] [place] [address] Performed By: #### 1 4196-0, 50737-9 #### [facility] CLIA [id number] [address] [place] [address] [place] Hematocrit (Bld) [Volume fraction] 25.9 % Low 36.0-46.0 [facility] Comment on above: Order Comment: Speci men Type: BLOOD SPECIMEN Ordering Facility: [facility] Address: [address] [place] [address] Performed By: #### 1 4196-0, 91925-4 #### [facility] CLIA [id number] [address] [place] Hemoglobin (Bld) [Mass/Vol] 8.6 g/dL Low 11.5-15.5 [facility] Comment on above: Order Comment: Speci men Type: BLOOD SPECIMEN Ordering Facility: [facility] Address: [address] [place] [address] Performed By: #### 1 4196-0, 73488-7 #### [facility] CLIA [id number] [address] MCH (RBC) [Entitic mass] 26.8 pg Normal 26.0-34.0 [facility] Comment on above: Order Comment: Speci men Type: BLOOD SPECIMEN Ordering Facility: [facility] Address: [address] [place] [address] Performed By: #### 1 4196-0, 06860-4 #### [facility] CLIA [id number] [address] [place] [address] MCHC (RBC) [Mass/Vol] 33.2 g/dL Normal 30.5-36.0 [facility] Comment on above: Order Comment: Speci men Type: BLOOD SPECIMEN Ordering Facility: [facility] Address: [address] [place] [address] Performed By: #### 1 4196-0, 39377-9 #### [facility] CLIA [id number] [address] [place] [address] MCV (RBC) [Entitic vol] 80.7 fL Normal 80.0-100.0 [facility] Comment on above: Order Comment: Speci men Type: BLOOD SPECIMEN Ordering Facility: [facility] Address: [address] [place] [address] Performed By: #### 1 4196-0, 74022-9 #### [facility] CLIA [id number] [address] Nucleated RBC (Bld) [#/Vol] 10*3/uL Normal <0.01 [facility] Comment on above: Order Comment: Speci men Type: BLOOD SPECIMEN Ordering Facility: [facility] Address: [address] [place] [address] Performed By: #### 1 4196-0, 13673-6 #### [facility] CLIA [id number] [address] [place] Platelet mean volume (Bld) [Entitic vol] 10.6 fL Normal 9.0-12.7 [facility] Comment on above: Order Comment: Speci men Type: BLOOD SPECIMEN Ordering Facility: [facility] Address: [address] [place] [address] Performed By: #### 1 4196-0, 60683-6 #### [facility] CLIA [id number] [address] [place] Platelets (Bld) [#/Vol] 148 10*3/uL Low 150-400 [facility] Comment on above: Order Comment: Speci men Type: BLOOD SPECIMEN Ordering Facility: [facility] Address: [address] [place] [address] Performed By: #### 1 4196-0, 29489-5 #### [facility] CLIA [id number] [address] [place] RBC (Bld) [#/Vol] 3.21 10*6/uL Low 3.90-5.20 [facility] Comment on above: Order Comment: Speci men Type: BLOOD SPECIMEN Ordering Facility: [facility] Address: [address] [place] [address] Performed By: #### 1 4196-0, 06339-7 #### [facility] CLIA [id number] [address] [place] WBC (Bld) [#/Vol] 6.94 10*3/uL Normal 3.70-11.00 [facility] Comment on above: Order Comment: Speci men Type: BLOOD SPECIMEN Ordering Facility: [facility] Address: [address] [place] [address] Performed By: #### 1 4196-0, 43728-3 #### [facility] CLIA [id number] [address] CONSULTon 03-21-2023 CONSULT HNO ID: [id number] Author: SHERIN SHEA DO Service: Hospital Medicine Author Type: Physician Type: Consults Filed: 03/21/2023 17:37 Note Text: DEPARTMENT OF HOSPITAL MEDICINE INITIAL CONSULT SERVICE DATE: 03/21/2023 SERVICE TIME: 10:03 AM Primary Care Physician: Claudine Durán MD NIGHT AND WEEKEND COVERAGE: [place] COVERAGE: After 7pm, please call cross cover pager #[phone] REASON FOR CONSULT: possibly assume care REQUESTING [...] positive rheumatoid factor (HCC) 03/07/2015 Dr. Hurley ([facility]) Unspecified hemorrhoids without mention of [...] SPINE FUSN,POST INTERBODY 2012 Dr. Armando at [facility]. Diskectomy and laminectomy PAST SURGICAL [...] 4 H PRN remdesivir in NaCl 0.9% Vial-Mate/ADD-[place] 100 mg 275 mL 100 mg INTRAVENOUS [...] (SPORANOX) 200 mg ORAL BID phenol 1 [place] (CHLORASEPTIC) 1 [place] MUCOUS MEMBRANE (TOPICAL MOUTH AND THROAT) q 2 H PRN . ALLERGIES Allerg (more content not included)... Normal [facility] CONSULT PROGon 03-21-2023 CONSULT PROG HNO ID: [id number] Author: MAGAN VILLAFUERTE DO Service: Pulmonary Disease [...] enzymes), -GERD, -HTN, -h/o disseminated Histoplasmosis in 6066-1579 managed on itraconazole, ne H an M [...] inside the abdomen. INR on arrival to [place] was 9. She given Vitamin K and transferred here. 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 No sustained Rx with Amiodarone, Nitrofurantoin, cancer chemotherapy. Smoking h/o: 56-cviw-xsnd former smoker, quit in 1989. Late was [...] sites with positive rheumatoid factor ([facility]) 03/07/2015 Dr. Hurley ([facility]) Unspecified hemorrhoids without mention of [...] SPINE FUSN,POST INTERBODY 2011 Dr. Armando at [facility]. Diskectomy and laminectomy PAST SURGICAL HISTORY OF 03/07/1999 removal facial lesion PAST SURGICAL HISTORY OF 08/17/2014 excision soft tissue mass left index finger TONSILLECTOMY PRIMARY/ (more content not included)... Normal [facility] Comprehensive metabolic 2000 panelon 03-21-2023 Albumin [Mass/Vol] 2.8 g/dL Low 3.9-4.9 [facility] Comment on above: Order Comment: Speci men Type: BLOOD SPECIMEN Ordering Facility: [facility] Address: [address] [place] [address] Performed By: #### 2 4323-8, 75206-2 #### [facility] CLIA [id number] [address] [place] [address] [place] ALP [Catalytic activity/Vol] 215 U/L High 34-123 [facility] Comment on above: Order Comment: Speci men Type: BLOOD SPECIMEN Ordering Facility: [facility] Address: [address] [place] [address] Performed By: #### 2 4323-8, 48159-3 #### [facility] CLIA [id number] [address] [place] ALT With P-5'-P [Catalytic activity/Vol] 62 U/L High 7-38 [facility] Comment on above: Order Comment: Speci men Type: BLOOD SPECIMEN Ordering Facility: [facility] Address: [address] [place] [address] Performed By: #### 2 4323-8, 22012-0 #### [facility] CLIA [id number] [address] [place] Anion gap [Moles/Vol] 7 mmol/L Low 9-18 [facility] Comment on above: Order Comment: Speci men Type: BLOOD SPECIMEN Ordering Facility: [facility] Address: [address] [place] [address] Performed By: #### 2 4323-8, 23384-0 #### [facility] CLIA [id number] [address] AST With P-5'-P [Catalytic activity/Vol] 42 U/L High 13-35 [facility] Comment on above: Order Comment: Speci men Type: BLOOD SPECIMEN Ordering Facility: [facility] Address: [address] [place] [address] Performed By: #### 2 4323-8, 94950-4 #### [facility] CLIA [id number] [address] [place] Bilirubin [Mass/Vol] 0.6 mg/dL Normal 0.2-1.3 [facility] Comment on above: Order Comment: Speci men Type: BLOOD SPECIMEN Ordering Facility: [facility] Address: [address] [place] [address] Performed By: #### 2 4323-8, 63048-0 #### [facility] CLIA [id number] [address] [place] Calcium [Mass/Vol] 8.5 mg/dL Normal 8.5-10.2 [facility] Comment on above: Order Comment: Speci men Type: BLOOD SPECIMEN Ordering Facility: [facility] Address: [address] [place] [address] Performed By: #### 2 4323-8, 34128-7 #### [facility] CLIA [id number] [address] [place] [address] [place] Chloride [Moles/Vol] 97 mmol/L Normal 97-105 [facility] Comment on above: Order Comment: Speci men Type: BLOOD SPECIMEN Ordering Facility: [facility] Address: [address] [place] [address] Performed By: #### 2 4323-8, 71730-9 #### [facility] CLIA [id number] [address] [place] CO2 [Moles/Vol] 26 mmol/L Normal 22-30 [facility] Comment on above: Order Comment: Speci men Type: BLOOD SPECIMEN Ordering Facility: [facility] Address: [address] [place] [address] Performed By: #### 2 4323-8, 42887-6 #### [facility] CLIA [id number] [address] [place] Creatinine [Mass/Vol] 0.93 mg/dL Normal 0.58-0.96 [facility] Comment on above: Order Comment: Speci men Type: BLOOD SPECIMEN Ordering Facility: [facility] Address: [address] [place] [address] Performed By: #### 2 4323-8, 18432-8 #### [facility] CLIA [id number] [address] [place] Creatinine and Glomerular filtration rate.predicted panel (S/P/Bld) 64 mL/min/1.73m??? Normal >=60 [facility] Comment on above: Order Comment: Speci men Type: BLOOD SPECIMEN Ordering Facility: [facility] Address: [address] [place] [address] Result Comment: Meaghan mated Glomerular Filtration Rate [...] actual GFR. Performed By: #### 2 4323-8, 02379-5 #### [facility] CLIA [id number] 1 [place] [address] [place] Glucose [Mass/Vol] 162 mg/dL High 74-99 [facility] Comment on above: Order Comment: Renay adkins Type: BLOOD SPECIMEN Ordering Facility: [facility] Address: [address] [id number] Result Comment: The [place] [employer] (ADA) provides guidance for cutoff [...] Standards of Medical Care in Diabetes 2016, [place] [employer]. Diabetes Care. 2016.39(Suppl 1). Performed By: #### 2 4323-8, 75104-8 #### [facility] CLIA [id number] 1 [place] [address] [place] Potassium [Moles/Vol] 4.5 mmol/L Normal 3.7-5.1 [facility] Comment on above: Order Comment: Renay adkins Type: BLOOD SPECIMEN Ordering Facility: [facility] Address: [address] [place] [address] Performed By: #### 2 4323-8, 58980-9 #### [facility] CLIA [id number] 1 [place] [address] [place] Protein [Mass/Vol] 5.0 g/dL Low 6.3-8.0 [facility] Comment on above: Order Comment: Speci men Type: BLOOD SPECIMEN Ordering Facility: [facility] Address: [address] [place] [address] Performed By: #### 2 4323-8, 06353-7 #### [facility] CLIA [id number] [address] [place] Sodium [Moles/Vol] 130 mmol/L Low 136-144 [facility] Comment on above: Order Comment: Speci men Type: BLOOD SPECIMEN Ordering Facility: [facility] Address: [address] [place] [address] Performed By: #### 2 4323-8, 38663-0 #### [facility] CLIA [id number] [address] [place] Urea nitrogen [Mass/Vol] 19 mg/dL Normal 7-21 [facility] Comment on above: Order Comment: Speci men Type: BLOOD SPECIMEN Ordering Facility: [facility] Address: [address] [place] [address] Performed By: #### 2 4323-8, 69466-8 #### [facility] CLIA [id number] [address] [place] ECG COMPLETEon 03-21-2023 ECG COMPLETE Ventricular Rate : 1 03 BPM Atrial Rate : 103 BPM P-R Interval : 134 ms QRS Duration : 80 ms Q-T Interval : 336 ms QTC Calculation(Bazett) : 440 ms Calculated P [place] : 55 degrees Calculated R [place] : 28 degrees Calculated T [place] : 33 degrees SINUS TACHYCARDIA POSSIBLE LEFT ATRIAL ENLARGEMENT LOW VOLTAGE QRS CANNOT RULE OUT ANTERIOR INFARCT , AGE UNDETERMINED ABNORMAL ECG NO PREVIOUS ECGS AVAILABLE Confirmed by MD THAO THOMAS ([id number]) on 03/29/2023 8:55:56 PM NAME : HAYDEE BUSTAMANTE PID : [id number] : 1945 Gender : Female Race : ORD : [id number] Procedure Date : Mar 21 2023 09:24:27 Edit Date : Mar 29 2023 20:55:58 Diagnosis: SINUS TACHYCARDIA POSSIBLE LEFT ATRIAL ENLARGEMENT LOW VOLTAGE QRS CANNOT RULE OUT ANTERIOR INFARCT , AGE UNDETERMINED ABNORMAL ECG NO PREVIOUS ECGS AVAILABLE Confirmed by MD THAO THOMAS ([id number]) on 03/29/2023 8:55:56 PM Test Reason : Check QT Location : 4 : [facility] Overread By : MD THAO THOMAS Edited By : MD THAO THOMAS Referred By : , Acquired by : BREN CELIS [facility] ED NOTEon 03-21-2023 ED NOTE HNO ID: [id number] Author: MAGALYS PHILLIPS RN Service: ? Author Type: Registered Nurse Type: ED Notes Filed: 03/21/2023 15:01 Note Text: Report given to Lilia MITCHELL 5100 at this time. No further questions at this time. [facility] ED NOTE HNO ID: [id number] Author: ELKE PELAEZ RN Service: Emergency Medicine Author Type: Registered Nurse Type: ED Notes Filed: 03/21/2023 03:09 Note Text: REPORT GIVEN TO ARJUN MITCHELL [facility] PT panel Coag (PPP)on 2023 INR Coag (PPP) [Relative time] 3.9 {INR} High 0.9-1.3 [facility] Comment on above: Order Comment: Speci men Type: BLOOD SPECIMEN Ordering Facility: [facility] Address: [address] [place] [address], [place] [address] Result Comment: Halle min K Antagonist (VKA) Therapeutic Range: INR 2 to 3 (Target INR of 2.5) Note: For patients treated with VKA drugs, such as warfarin, the [place] [employer] 2012 Guideline recommends [...] 70: 252-289 Performed By: #### 1 4196-0, 12899-6 #### [facility] CLIA [id number] [address] STATES OF [facility] PT Coag (PPP) [Time] 37.0 s High 9.7-13.0 [facility] Comment on above: Order Comment: Speci men Type: BLOOD SPECIMEN Ordering Facility: [facility] Address: [address] [place] [address] Performed By: #### 1 4196-0, 47700-3 #### [facility] CLIA [id number] [address] Procalcitonin SerPl-mCncon 0 03-21-2023 Procalcitonin [Mass/Vol] 0.18 ng/mL High <0.09 [facility] Comment on above: Order Comment: Speci [facility] Type: BLOOD SPECIMEN Ordering Facility: [facility] Address: [address] [place] [address] Result Comment: For a guided interpretation of test results, please visit the Change in Procalcitonin Calculator, [email or web address]. Performed By: #### 2 4323-8, 46040-3 #### [facility] CLIA [id number] [address] XR CHEST 1V FRONTALon 2023 XR [...] small left pleural effusion versus pleural thickening Science Instructor: KRYSTAL Transcribe Date/Time: Mar 21 2023 11:07P Dictated by : JANNET MCGOWAN MD This examination was interpreted and the report reviewed and electronically signed by: JANNET MCGOWAN MD on Mar 21 2023 11:10PM EST [id number] Normal [facility] BLOOD TB SCREEN, INCUBATEDon 03-20-2023 M. tuberculosis tuberculin stim IFN-g Ql (Bld) Negative Normal [facility] Comment on above: Order Comment: Renay adkins Type: BLOOD SPECIMEN Ordering Facility: [facility] Address: [address] [place] [address] Performed By: #### 1 4196-0, 51028-2 #### [facility] CLIA [id number] [address] [place] [address] MITOGEN MINUS NIL >7.27 Normal >=0.50 [facility] Comment on above: Order Comment: Renay adkins Type: BLOOD SPECIMEN Ordering Facility: [facility] Address: [address] [place] [address] Performed By: #### 1 4196-0, 61689-3 #### [facility] CLIA [id number] [address] TB GAMMA INTERPRETATION Infection with M . tuberculosis complex is unlikely. If latent tuberculosis infection is highly suspected, a negative result does not rule out the infection. Specimens from immunocompromised patients and those <5 years of age may show false negative results. In case of a contact investigation, please repeat 8-12 weeks after a known exposure. Normal [facility] Comment on above: Order Comment: Renay adkins Type: BLOOD SPECIMEN Ordering Facility: [facility] Address: [address] [place] [address] Performed By: #### 1 4196-0, 94280-0 #### [facility] CLIA [id number] [address] TB NIL 2.73 IU/mL Normal <=8.00 [facility] Comment on above: Order Comment: Speci men Type: BLOOD SPECIMEN Ordering Facility: [facility] Address: [address] [place] [address] Performed By: #### 1 4196-0, 92259-5 #### [facility] CLIA [id number] [address] TB1 AG MINUS NIL <0.00 Normal <0.35 [facility] Comment on above: Order Comment: Speci men Type: BLOOD SPECIMEN Ordering Facility: [facility] Address: [address] [place] [address] Performed By: #### 1 4196-0, 51601-6 #### [facility] CLIA [id number] [address] TB2 AG MINUS NIL <0.00 Normal <0.35 [facility] Comment on above: Order Comment: Speci men Type: BLOOD SPECIMEN Ordering Facility: [facility] Address: [address] [place] [address] Performed By: #### 1 4196-0, 76961-5 #### [facility] CLIA [id number] [address] [place] Basic metabolic 2000 panelon 03-20-2023 Anion gap [Moles/Vol] 8 mmol/L Low 9-18 [facility] Comment on above: Order Comment: Speci men Type: BLOOD SPECIMEN Ordering Facility: [facility] Address: [address] [place] [address] Performed By: #### 1 4196-0, 62307-6 #### [facility] CLIA [id number] [address] OF [facility] Calcium [Mass/Vol] 8.4 mg/dL Low 8.5-10.2 [facility] Comment on above: Order Comment: Speci men Type: BLOOD SPECIMEN Ordering Facility: [facility] Address: [address] [place] [address] Performed By: #### 1 4196-0, 05652-2 #### [facility] CLIA [id number] [address] [place] Chloride [Moles/Vol] 96 mmol/L Low 97-105 [facility] Comment on above: Order Comment: Renay adkins Type: BLOOD SPECIMEN Ordering Facility: [facility] Address: [address] [place] [address] Performed By: #### 1 4196-0, 01045-6 #### [facility] CLIA [id number] [address] OF [facility] CO2 [Moles/Vol] 24 mmol/L Normal 22-30 [facility] Comment on above: Order Comment: Renay adkins Type: BLOOD SPECIMEN Ordering Facility: [facility] Address: [address] [place] [address] Performed By: #### 1 4196-0, 76256-9 #### [facility] CLIA [id number] [address] [place] [address] Creatinine [Mass/Vol] 0.84 mg/dL Normal 0.58-0.96 [facility] Comment on above: Order Comment: Speci men Type: BLOOD SPECIMEN Ordering Facility: [facility] Address: [address] [place] [address] Performed By: #### 1 4196-0, 10699-1 #### [facility] CLIA [id number] [address] Creatinine and Glomerular filtration rate.predicted panel (S/P/Bld) 73 mL/min/1.73m??? Normal >=60 [facility] Comment on above: Order Comment: Speci men Type: BLOOD SPECIMEN Ordering Facility: [facility] Address: [address] [place] [address] Result Comment: Meaghan mated Glomerular Filtration Rate [...] actual GFR. Performed By: #### 1 4196-0, 17662-1 #### [facility] CLIA [id number] [address] [place] [address] [place] Glucose [Mass/Vol] 77 mg/dL Normal 74-99 [facility] Comment on above: Order Comment: Speci men Type: BLOOD SPECIMEN Ordering Facility: [facility] Address: [address] [place] [address] Result Comment: The [place] [employer] (ADA) provides guidance for cutoff [...] Standards of Medical Care in Diabetes 2016, [place] [employer]. Diabetes Care. 2016.39(Suppl 1). Performed By: #### 1 4196-0, 43013-9 #### [facility] CLIA [id number] [address] [place] [address] [place] Potassium [Moles/Vol] 3.9 mmol/L Normal 3.7-5.1 [facility] Comment on above: Order Comment: Renay men Type: BLOOD SPECIMEN Ordering Facility: [facility] Address: [address] [place] [address] Performed By: #### 1 4196-0, 66572-5 #### [facility] CLIA [id number] [address] [place] [address] [place] Sodium [Moles/Vol] 128 mmol/L Low 136-144 [facility] Comment on above: Order Comment: Abhilashi men Type: BLOOD SPECIMEN Ordering Facility: [facility] Address: [address] [place] [address] Performed By: #### 1 4196-0, 48567-6 #### [facility] CLIA [id number] [address] STATES OF [facility] Urea nitrogen [Mass/Vol] 25 mg/dL High 7-21 [facility] Comment on above: Order Comment: Speci men Type: BLOOD SPECIMEN Ordering Facility: [facility] Address: [address] [place] [address] Performed By: #### 1 4196-0, 04400-4 #### [facility] [facility] CLIA [id number] [address] CBC panel Auto (Bld)on 03-20 Erythrocyte distribution width (RBC) [Ratio] 16.3 % High 11.5-15.0 [facility] Comment on above: Order Comment: Speci men Type: BLOOD SPECIMEN Ordering Facility: [facility] Address: [address] [place] [address] Performed By: #### 1 4196-0, 87231-4 #### [facility] CLIA [id number] [address] [place] [address] Hematocrit (Bld) [Volume fraction] 24.6 % Low 36.0-46.0 [facility] Comment on above: Order Comment: Speci men Type: BLOOD SPECIMEN Ordering Facility: [facility] Address: [address] [place] [address] Performed By: #### 1 4196-0, 02614-2 #### [facility] CLIA [id number] [address] OF [facility] Hemoglobin (Bld) [Mass/Vol] 8.1 g/dL Low 11.5-15.5 [facility] Comment on above: Order Comment: Speci men Type: BLOOD SPECIMEN Ordering Facility: [facility] Address: [address] [place] [address] Performed By: #### 1 4196-0, 19236-3 #### [facility] CLIA [id number] [address] MCH (RBC) [Entitic mass] 26.9 pg Normal 26.0-34.0 [facility] Comment on above: Order Comment: Speci men Type: BLOOD SPECIMEN Ordering Facility: [facility] Address: [address] [place] [address] Performed By: #### 1 4196-0, 56541-2 #### [facility] CLIA [id number] [address] MCHC (RBC) [Mass/Vol] 32.9 g/dL Normal 30.5-36.0 [facility] Comment on above: Order Comment: Speci men Type: BLOOD SPECIMEN Ordering Facility: [facility] Address: [address] [place] [address] Performed By: #### 1 4196-0, 27815-8 #### [facility] CLIA [id number] [address] [place] [address] OF [facility] MCV (RBC) [Entitic vol] 81.7 fL Normal 80.0-100.0 [facility] Comment on above: Order Comment: Speci men Type: BLOOD SPECIMEN Ordering Facility: [facility] Address: [address] [place] [address] Performed By: #### 1 4196-0, 47206-1 #### [facility] CLIA [id number] [address] Nucleated RBC (Bld) [#/Vol] 10*3/uL Normal <0.01 [facility] Comment on above: Order Comment: Speci men Type: BLOOD SPECIMEN Ordering Facility: [facility] Address: [address] [place] [address] Performed By: #### 1 4196-0, 92260-7 #### [facility] CLIA [id number] [address] Platelet mean volume (Bld) [Entitic vol] 10.4 fL Normal 9.0-12.7 [facility] Comment on above: Order Comment: Speci men Type: BLOOD SPECIMEN Ordering Facility: [facility] Address: [address] [place] [address] Performed By: #### 1 4196-0, 27382-5 #### [facility] CLIA [id number] [address] Platelets (Bld) [#/Vol] 126 10*3/uL Low 150-400 [facility] Comment on above: Order Comment: Speci men Type: BLOOD SPECIMEN Ordering Facility: [facility] Address: [address] [place] [address] Result Comment: No c lot detected. Performed By: #### 1 4196-0, 39038-0 #### [facility] CLIA [id number] [address] RBC (Bld) [#/Vol] 3.01 10*6/uL Low 3.90-5.20 [facility] Comment on above: Order Comment: Speci men Type: BLOOD SPECIMEN Ordering Facility: [facility] Address: [address] [place] [address] Performed By: #### 1 4196-0, 01484-2 #### [facility] CLIA [id number] [address] WBC (Bld) [#/Vol] 5.06 10*3/uL Normal 3.70-11.00 [facility] Comment on above: Order Comment: Speci men Type: BLOOD SPECIMEN Ordering Facility: [facility] Address: [address] [place] [address] Performed By: #### 1 4196-0, 73217-6 #### [facility] CLIA [id number] [address] CONSULTon 03-20-2023 CONSULT HNO ID: [id number] Author: GENO HART MD Service: Infectious Disease [...] for recurrent lower extremity DVT, presented to [facility] 03/19/2023 for hemoptysis, going to the [place] ED but then sent here due to [...] be COVID-positive. Interestingly a CAT scan at [place] found pneumatosis intestinalis and intraperitoneal free air [...] -- 03/21/23 1000 remdesivir in NaCl 0.9% Vial-Mate/ADD-[place] 100 mg 275 mL 100 mg, INTRAVENOUS, [...] (more content not included)... 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 INR on arrival to [place] was 9. She given Vitamin K and transferred here. 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 No sustained Rx with Amiodarone, Nitrofurantoin, cancer chemotherapy. Smoking h/o: 97-hmyd-tguk former smoker, quit in 1989. Late was [...] positive rheumatoid factor (HCC) 03/07/2015 Dr. Hurley ([facility]) Unspecified hemorrhoids without mention of [...] SPINE FUSN,POST INTERBODY 2011 Dr. Armando at [facility]. Diskectomy and laminectomy PAST SURGICAL HISTORY OF 03/07/1999 removal facial lesion PAST SURGICAL HISTORY OF 08/17/2014 excision soft tissue mass left index finger TONSILLECTOMY PRIMARY/SECONDARY TRANSCATH RETRIEVAL,PERCUT 12/28/2006 medication ALL (more content not included)... Normal [facility] Comprehensive metabolic 2000 panelon 03-20-2023 Albumin [Mass/Vol] 2.6 g/dL Low 3.9-4.9 [facility] Comment on above: Order Comment: Speci men Type: BLOOD SPECIMEN Ordering Facility: [facility] Address: [address] [place] [address] Performed By: #### 3 3959-8, 93061-2 #### [facility] CLIA [id number] [address] ALP [Catalytic activity/Vol] 207 U/L High 34-123 [facility] Comment on above: Order Comment: Speci men Type: BLOOD SPECIMEN Ordering Facility: [facility] Address: [address] [place] [address] Performed By: #### 3 3959-8, 88165-5 #### [facility] CLIA [id number] [address] ALT With P-5'-P [Catalytic activity/Vol] 65 U/L High 7-38 [facility] Comment on above: Order Comment: Speci men Type: BLOOD SPECIMEN Ordering Facility: [facility] Address: [address] [place] [address] Performed By: #### 3 3959-8, 50197-0 #### [facility] CLIA [id number] [address] Anion gap [Moles/Vol] 8 mmol/L Low 9-18 [facility] Comment on above: Order Comment: Speci men Type: BLOOD SPECIMEN Ordering Facility: [facility] Address: [address] [place] [address] Performed By: #### 3 3959-8, 61822-3 #### [facility] CLIA [id number] [address] OF [facility] AST With P-5'-P [Catalytic activity/Vol] 55 U/L High 13-35 [facility] Comment on above: Order Comment: Speci men Type: BLOOD SPECIMEN Ordering Facility: [facility] Address: [address] [place] [address] Performed By: #### 3 3959-8, 06245-0 #### [facility] CLIA [id number] [address] [place] Bilirubin [Mass/Vol] 0.7 mg/dL Normal 0.2-1.3 [facility] Comment on above: Order Comment: Speci men Type: BLOOD SPECIMEN Ordering Facility: [facility] Address: [address] [place] [address] Performed By: #### 3 3959-8, 02498-5 #### [facility] CLIA [id number] 1 [place] [address] [place] Calcium [Mass/Vol] 8.3 mg/dL Low 8.5-10.2 [facility] Comment on above: Order Comment: Speci men Type: BLOOD SPECIMEN Ordering Facility: [facility] Address: [address] [place] [address] Performed By: #### 3 3959-8, 14549-8 #### [facility] CLIA [id number] 1 [place] [address] [place] Chloride [Moles/Vol] 95 mmol/L Low 97-105 [facility] Comment on above: Order Comment: Speci men Type: BLOOD SPECIMEN Ordering Facility: [facility] Address: [address] [place] [address] Performed By: #### 3 3959-8, 28942-7 #### [facility] CLIA [id number] [address] [place] [address] [place] CO2 [Moles/Vol] 25 mmol/L Normal 22-30 [facility] Comment on above: Order Comment: Speci men Type: BLOOD SPECIMEN Ordering Facility: [facility] Address: [address] [place] [address] Performed By: #### 3 3959-8, 71867-8 #### [facility] CLIA [id number] 1 [place] [address] [place] Creatinine [Mass/Vol] 0.86 mg/dL Normal 0.58-0.96 [facility] Comment on above: Order Comment: Renay adkins Type: BLOOD SPECIMEN Ordering Facility: [facility] Address: [address] [place] [address] Performed By: #### 3 3959-8, 14874-3 #### [facility] CLIA [id number] [address] [place] [address] Creatinine and Glomerular filtration rate.predicted panel (S/P/Bld) 71 mL/min/1.73m??? Normal >=60 [facility] Comment on above: Order Comment: Renay adkins Type: BLOOD SPECIMEN Ordering Facility: [facility] Address: [address] [place] [address] Result Comment: Meaghan mated Glomerular Filtration Rate [...] actual GFR. Performed By: #### 3 3959-8, 15728-0 #### [facility] CLIA [id number] [address] [place] [address] STATES OF [facility] Glucose [Mass/Vol] 84 mg/dL Normal 74-99 [facility] Comment on above: Order Comment: Renay adkins Type: BLOOD SPECIMEN Ordering Facility: [facility] Address: [address] [place] [address] Result Comment: The [place] [employer] (ADA) provides guidance for cutoff [...] Standards of Medical Care in Diabetes 2016, [place] [employer]. Diabetes Care. 2016.39(Suppl 1). Performed By: #### 3 3959-8, 15460-4 #### [facility] CLIA [id number] [address] STATES OF [facility] Potassium [Moles/Vol] 4.3 mmol/L Normal 3.7-5.1 [facility] Comment on above: Order Comment: Speci men Type: BLOOD SPECIMEN Ordering Facility: [facility] Address: [address] [place] [address] Performed By: #### 3 3959-8, 81985-8 #### [facility] CLIA [id number] [address] STATES OF [facility] Protein [Mass/Vol] 4.7 g/dL Low 6.3-8.0 [facility] Comment on above: Order Comment: Speci men Type: BLOOD SPECIMEN Ordering Facility: [facility] Address: [address] [place] [address] Performed By: #### 3 3959-8, 71538-9 #### [facility] CLIA [id number] [address] Sodium [Moles/Vol] 128 mmol/L Low 136-144 [facility] Comment on above: Order Comment: Speci men Type: BLOOD SPECIMEN Ordering Facility: [facility] Address: [address] [place] [address] Performed By: #### 3 3959-8, 72266-0 #### [facility] CLIA [id number] [address] [place] Urea nitrogen [Mass/Vol] 20 mg/dL Normal 7-21 [facility] Comment on above: Order Comment: Speci men Type: BLOOD SPECIMEN Ordering Facility: [facility] Address: [address] [place] [address] Performed By: #### 3 3959-8, 14638-3 #### [facility] CLIA [id number] [address] [place] ED NOTEon 03-20-2023 ED NOTE HNO ID: [id number] Author: ELKE PEALEZ RN Service: Emergency Medicine Author Type: Registered Nurse Type: ED Notes Filed: 03/20/2023 17:13 Note Text: Pt given food tray [facility] ED NOTE HNO ID: [id number] Author: ELKE PELAEZ RN Service: Emergency Medicine Author Type: Registered Nurse Type: ED Notes Filed: 03/20/2023 15:44 Note Text: Pt ambulating to bathroom with steady gait Normal [facility] ED NOTE HNO ID: [id number] Author: AMERICA ASTORGA RN Service: Emergency Medicine Author Type: Registered Nurse Type: ED Notes Filed: 03/20/2023 12:24 Note Text: Pt given lunch tray at this time. Normal [facility] ED NOTE HNO ID: [id number] Author: BIBI GONZALEZ RN Service: Emergency Medicine Author Type: Registered Nurse Type: ED Notes Filed: 03/20/2023 06:27 Note Text: Surgery at bedside [facility] ED NOTE HNO ID: [id number] Author: BIBI GONZALEZ RN Service: Emergency Medicine Author Type: Registered Nurse Type: ED Notes Filed: 03/20/2023 06:23 Note Text: Patient ambulatory to restroom and back with steady gait. [facility] ED NOTE HNO ID: [id number] Author: BIBI GONZALEZ RN Service: Emergency Medicine Author Type: Registered Nurse Type: ED Notes Filed: 03/20/2023 02:11 Note Text: Patient ambulatory to restroom and back with steady gait. [facility] PT panel Coag (PPP)on 2023 INR Coag (PPP) [Relative time] 4.7 {INR} High 0.9-1.3 [facility] Comment on above: Order Comment: Speci men Type: BLOOD SPECIMENOrdering Facility: [facility] Address: [address] [place] [address] Result Comment: Halle min K Antagonist (VKA) Therapeutic Range: INR 2 to 3 (Target INR of 2.5) Note: For patients treated with VKA drugs, such as warfarin, the [place] [employer] 2012 Guideline recommends [...] Chest 2012, 141:7S-47S Mitzi RA, et al. [facility] 2017, 70: 252-289 Performed By: #### 3 4528-0 ####[facility] [id number] [place] [address] [place] PT Coag (PPP) [Time] 44.0 s High 9.7-13.0 [facility] Comment on above: Order Comment: Speci men Type: BLOOD SPECIMENOrdering Facility: [facility] Address: [address] [place] [address] Performed By: #### 3 4528-0 ####[facility] [id number] [address] [place] INR Coag (PPP) [Relative time] 5.7 {INR} High 0.9-1.3 [facility] Comment on above: Order Comment: Speci men Type: BLOOD SPECIMENOrdering Facility: [facility] Address: [address] [place] [address] Result Comment: Halle min K Antagonist (VKA) Therapeutic Range: INR 2 to 3 (Target INR of 2.5) Note: For patients treated with VKA drugs, such as warfarin, the [place] [employer] 2012 Guideline recommends [...] Chest 2012, 141:7S-47S Mitzi RA, et al. [facility] 2017, 70: 252-289 Performed By: #### 3 4528-0 ####[facility] [id number] [address] STATES OF [facility] PT Coag (PPP) [Time] 52.4 s High 9.7-13.0 [facility] Comment on above: Order Comment: Speci men Type: BLOOD SPECIMENOrdering Facility: [facility] Address: [address] [place] [address] Performed By: #### 3 4528-0 ####[facility] [id number] [address] Procalcitonin SerPl-mCncon 0 03-20-2023 Procalcitonin [Mass/Vol] 0.20 ng/mL High <0.09 [facility] Comment on above: Order Comment: Speci men Type: BLOOD SPECIMEN Ordering Facility: [facility] Address: [address] [place] [address] Result Comment: For a guided interpretation of test results, please visit the Change in Procalcitonin Calculator, [email or web address]. Performed By: #### 3 3959-8, 03274-1 #### [facility] CLIA [id number] [address] Resp path 12b Pnl Spec GWEN+p [...] MYCOPLASMA PNEUMONIAE: Not detected Normal [facility] Comment on above: Performed By: #### 6 0566-7 ####[facility]IA [id number] [place] [address] [place] Absolute lymphocyte countOrd ered By: Bob Elias on 03-19-2023 Lymphocytes Auto (Unsp spec) [#/Vol] 0.97 10*3/uL 0.83-4.51 [facility] Activated partial thrombopla stin time (aPTT) in platelet poor plasma by coagulation aOrdered By: Bob Elias on 03-19-2023 aPTT Coag (PPP) [Time] 109.6 s 24.1-36.2 [facility] Comment on above: CRITICAL VALUE VERIF IED. CALLED TO MYNOR MITCHELL (ER)03/19/23 1200 Chacho Bernal.RESULTS READ BACK BY SAME. Automated lymphocyte count a s percentage of total leukocytesOrdered By: Bob Elias on 03-19-2023 Lymphocytes/100 WBC Auto (Unsp spec) 15.1 % 19-41 [facility] Basic metabolic 2000 panelon 03-19-2023 Anion gap [Moles/Vol] 8 mmol/L Low 9-18 [facility] Comment on above: Order Comment: Speci men Type: BLOOD SPECIMENOrdering Facility: [facility] Address: [address] [place] [address] Performed By: #### 2 4321-2 ####[facility]ORYCLIA [id number] [place] [address] [place] Calcium [Mass/Vol] 8.9 mg/dL Normal 8.5-10.2 [facility] Comment on above: Order Comment: Speci men Type: BLOOD SPECIMENOrdering Facility: [facility] Address: [address] [place] [address] Performed By: #### 2 4321-2 ####[facility]ORY[facility]IA [id number] [place] [address] [place] Chloride [Moles/Vol] 95 mmol/L Low 97-105 [facility] Comment on above: Order Comment: Speci men Type: BLOOD SPECIMENOrdering Facility: [facility] Address: [address] [place] [address] Performed By: #### 2 4321-2 ####[facility] [id number] [address] [place] CO2 [Moles/Vol] 25 mmol/L Normal 22-30 [facility] Comment on above: Order Comment: Speci men Type: BLOOD SPECIMENOrdering Facility: [facility] Address: [address] [place] [address] Performed By: #### 2 4321-2 ####[facility] [id number] [address] [place] Creatinine [Mass/Vol] 0.88 mg/dL Normal 0.58-0.96 [facility] Comment on above: Order Comment: Speci men Type: BLOOD SPECIMENOrdering Facility: [facility] Address: [address] [place] [address] Performed By: #### 2 4321-2 ####[facility] [id number] [address] Creatinine and Glomerular filtration rate.predicted panel (S/P/Bld) 69 mL/min/1.73m??? Normal >=60 [facility] Comment on above: Order Comment: Speci men Type: BLOOD SPECIMENOrdering Facility: [facility] Address: [address] [place] [address] Result Comment: Meaghan mated Glomerular Filtration Rate [...] GFR. Performed By: #### 2 4321-2 ####[facility]ORYCLIA [id number] [place] [address] [place] Glucose [Mass/Vol] 87 mg/dL Normal 74-99 [facility] Comment on above: Order Comment: Speci men Type: BLOOD SPECIMENOrdering Facility: [facility] Address: [address] [place] [address] Result Comment: The [place] [employer] (ADA) provides guidance for cutoff [...] Standards of Medical Care in Diabetes 2016, [place] [employer]. Diabetes Care. 2016.39(Suppl 1). Performed By: #### 2 4321-2 ####[facility]ORYCLIA [id number] [place] [address] [place] Potassium [Moles/Vol] 4.3 mmol/L Normal 3.7-5.1 [facility] Comment on above: Order Comment: Speci men Type: BLOOD SPECIMENOrdering Facility: [facility] Address: [address] [id number] Performed By: #### 2 4321-2 ####[facility]ORYCLIA [id number] [place] [address] [place] Sodium [Moles/Vol] 128 mmol/L Low 136-144 [facility] Comment on above: Order Comment: Speci men Type: BLOOD SPECIMENOrdering Facility: [facility] Address: [address] [id number] Performed By: #### 2 4321-2 ####[facility]ORYCLIA [id number] [place] [address] [place] Urea nitrogen [Mass/Vol] 27 mg/dL High 7-21 [facility] Comment on above: Order Comment: Speci men Type: BLOOD SPECIMENOrdering Facility: [facility] Address: [address] [id number] Performed By: #### 2 4321-2 ####[facility]ORYCLIA [id number] [place] [address] [place] Basophil percentageOrdered B y: Bob Elias on 03-19-2023 Basophil percentage 9.0 g/dL 12.0-15.0 [facility] Basophil percentage 89 mg/dL 74-106 [facility] Basophil percentage 130 mmol/L 136-145 [facility] Basophil percentage 4.5 mmol/L 3.5-5.1 [facility] Basophil percentage 100 mmol/L 98-107 [facility] Basophils (Bld) [#/Vol] 6.4 10*3/uL 4.4-11.0 [facility] Basophils (Bld) [#/Vol] 4.4 10*3/uL 2.0-7.7 [facility] Basophils/100 WBC (Bld) 1.1 % 0-1 [facility] Basophils/100 WBC (Bld) 68.8 % 47-70 [facility] Basophils/100 WBC (Bld) 10.9 % 0-10 [facility] Basophils/100 WBC (Bld) 2.5 % 0-5 [facility] Chloride [Moles/Vol] 100 mmol/L 98-107 [facility] Eosin[facility]/100 WBC (Bld) 2.5 % 0-5 [facility] Glucose [Mass/Vol] 89 mg/dL 74-106 [facility] Hemoglobin (Bld) [Mass/Vol] 9.0 g/dL 12.0-15.0 [facility] Monocytes/100 WBC (Bld) 10.9 % 0-10 [facility] Neutrophils (Bld) [#/Vol] 4.4 10*3/uL 2.0-7.7 [facility] Neutrophils/100 WBC (Bld) 68.8 % 47-70 [facility] Potassium [Moles/Vol] 4.5 mmol/L 3.5-5.1 [facility] Sodium [Moles/Vol] 130 mmol/L 136-145 [facility] WBC (Bld) [#/Vol] 6.4 10*3/uL 4.4-11.0 [facility] CBC panel Auto (Bld)on 03-19 Erythrocyte distribution width (RBC) [Ratio] 16.3 % High 11.5-15.0 [facility] Comment on above: Order Comment: Renay adkins Type: BLOOD SPECIMEN Ordering Facility: [facility] Address: [address] [place] [address] Performed By: #### 1 4196-0, 62795-2 #### [facility] CLIA [id number] [address] [place] [address] OF [facility] Hematocrit (Bld) [Volume fraction] 29.2 % Low 36.0-46.0 [facility] Comment on above: Order Comment: Renay adkins Type: BLOOD SPECIMEN Ordering Facility: [facility] Address: [address] [place] [address] Performed By: #### 1 4196-0, 42998-5 #### [facility] CLIA [id number] [address] [place] Hemoglobin (Bld) [Mass/Vol] 9.6 g/dL Low 11.5-15.5 [facility] Comment on above: Order Comment: Specbetina adkins Type: BLOOD SPECIMEN Ordering Facility: [facility] Address: [address] [place] [address] Performed By: #### 1 4196-0, 78472-1 #### [facility] CLIA [id number] [address] [place] MCH (RBC) [Entitic mass] 26.7 pg Normal 26.0-34.0 [facility] Comment on above: Order Comment: Speci men Type: BLOOD SPECIMEN Ordering Facility: [facility] Address: [address] [place] [address] Performed By: #### 1 4196-0, 94475-8 #### [facility] CLIA [id number] [address] MCHC (RBC) [Mass/Vol] 32.9 g/dL Normal 30.5-36.0 [facility] Comment on above: Order Comment: Speci men Type: BLOOD SPECIMEN Ordering Facility: [facility] Address: [address] [place] [address] Performed By: #### 1 4196-0, 51662-4 #### [facility] CLIA [id number] [address] [place] [address] MCV (RBC) [Entitic vol] 81.1 fL Normal 80.0-100.0 [facility] Comment on above: Order Comment: Speci men Type: BLOOD SPECIMEN Ordering Facility: [facility] Address: [address] [place] [address] Performed By: #### 1 4196-0, 74645-1 #### [facility] CLIA [id number] [address] [place] [address] Nucleated RBC (Bld) [#/Vol] 10*3/uL Normal <0.01 [facility] Comment on above: Order Comment: Speci men Type: BLOOD SPECIMEN Ordering Facility: [facility] Address: [address] [place] [address] Performed By: #### 1 4196-0, 25254-6 #### [facility] CLIA [id number] [address] Platelet mean volume (Bld) [Entitic vol] 9.6 fL Normal 9.0-12.7 [facility] Comment on above: Order Comment: Speci men Type: BLOOD SPECIMEN Ordering Facility: [facility] Address: [facility] [place] [address] Performed By: #### 1 4196-0, 56402-2 #### [facility] CLIA [id number] [address] Platelets (Bld) [#/Vol] 144 10*3/uL Low 150-400 [facility] Comment on above: Order Comment: Speci men Type: BLOOD SPECIMEN Ordering Facility: [facility] Address: [address] [place] [address] Performed By: #### 1 4196-0, 17272-2 #### [facility] CLIA [id number] [address] OF [facility] RBC (Bld) [#/Vol] 3.60 10*6/uL Low 3.90-5.20 [facility] Comment on above: Order Comment: Speci men Type: BLOOD SPECIMEN Ordering Facility: [facility] Address: [address] [place] [address] Performed By: #### 1 4196-0, 60404-7 #### [facility] CLIA [id number] [address] [place] [address] WBC (Bld) [#/Vol] 7.48 10*3/uL Normal 3.70-11.00 [facility] Comment on above: Order Comment: Speci men Type: BLOOD SPECIMEN Ordering Facility: [facility] Address: [address] [place] [address] Performed By: #### 1 4196-0, 80903-7 #### [facility] CLIA [id number] [address] [place] [address] Determination of erythrocyte mean corpuscular volume (MCV)Ordered By: Bob Elias on 03-19-2023 MCV (RBC) [Entitic vol] 81.5 fL 81-99 [facility] ED NOTEon 03-19-2023 ED NOTE HNO ID: [id number] Author: BIBI GONZALEZ, RN Service: Emergency Medicine Author Type: Registered Nurse Type: ED Notes Filed: 03/19/2023 20:07 Note Text: CT notified pt is ready Normal [facility] ED NOTE HNO ID: [id number] Author: APRIL SOARES RN Service: ? Author Type: Registered Nurse Type: ED Notes Filed: 03/19/2023 18:06 Note Text: Bed: 07-ED Expected date: 03/19/23 Expected time: Means of arrival: [facility] Comments: MARTÍN MOMIN: AKBAR TRANSFER Normal [facility] ED PROV NOTEon 03-19-2023 ED PROV NOTE HNO ID: [id number] Author: CHACHO ERNST DO Service: Emergency Medicine [...] who presents for pneumoperitoneum. Patient presents from [facility] where she initially presented after having worsening cough with hemoptysis. 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 She states that yesterday morning she was woken up from her sleep with persistent coughing and an episode of hemoptysis. She states that she has intermittently had blood tinge to her sputum but states that this was much more than normal. She is on Coumadin for history of prior DVT and states that she has been compliant with this. While she was at [place], she was found to have an INR [...] sites with positive rheumatoid factor ([facility]) 03/07/2015 Dr. Hurley ([facility]) Unspecified hemorrhoids without mention of [...] pneumoperitoneum. CHACHO ERNST 03/19/232058 Normal [facility] ED PROV NOTE HNO ID: [id number] Author: CHACHO ERNST DO Service: Emergency Medicine [...] presents with: Functional Transfers: Pt transferred from [place] ED for free air and perf bowel. Pt states she initially went to the hospital for ongoing sore throat and one episode of hemoptysis early this morning. Pt denies chest or abd pain. Pt tested positive for Covid at [place]. HPI Patient is a 77-year-old female with past medical history of DVT on Coumadin, COPD, recent diagnosis of histoplasmosis and Blastomyces, COVID-positive today presenting to the emergency department from was from [facility] due to possible bowel perf on imaging. Pt denies any pain currently. Pt reports that she went to [place] this morning after spitting up a small amount of bright red blood from a cough which has been ongoing since January. Pt reports having a sore throat at this time but denies any lightheadedness, CP, SOB, abdominal pain, and denies any nausea or vomiting. Per EMS, pt had an INR of 9.4 at [place]. Patient reports that she is on Coumadin [...] positive rheumatoid factor (HCC) 03/07/2015 Dr. Hurley ([facility]) Unspecified hemorrhoids without mention of [...] SPINE FUSN,POST INTERBODY 2011 Dr. Armando at [facility]. Diskectomy and laminectomy PAST SURGICAL [...] (more content not included)... Normal [facility] Erythrocyte distribution wid th ratioOrdered By: Bob Elias on 03-19-2023 Erythrocyte distribution width (RBC) [Ratio] 16.3 % 11.6-14.6 [facility] Erythrocyte distribution wid th standard deviationOrdered By: Bob Elias on 03-19-2023 Erythrocyte distribution width (RBC) [Entitic vol] 48.3 fL 35.1-43.9 [facility] HISTORY PHYSICALon HISTORY PHYSICAL HNO ID: [id number] Author: PAMELA HALL MD Service: General Surgery [...] in the colon. INR on arrival to [place] was 9. She given Vitamin K and transferred here. Patient denies any abdominal pain, nausea, vomiting, fevers, or chills. Patient reports normal bowel movements. Slightly tachycardic on arrival. HDS. Repeat CBC, BMP, PT/INR pending. CTAP read in [facility], currently waiting on image transfer from [place]. Noprevious abdominal surgeries. Last colonoscopy in 2019 [...] positive rheumatoid factor (HCC) 03/07/2015 Dr. Hurley ([facility]) Unspecified hemorrhoids without mention of [...] SPINE FUSN,POST INTERBODY 2011 Dr. Armando at [facility]. Diskectomy and laminectomy PAST SURGICAL [...] in the colon. INR on arrival to [place] was 9. She given Vitamin K and transferred here. Pneumatosis intestinalis (more content not included)... Normal [facility] Hematocrit Auto (Bld) [Volum e fraction]Ordered By: Bob Elias on 03-19-2023 Hematocrit (Bld) [Volume fraction] 27.7 % 37-47 [facility] Immature granulocytes/100 WB C Auto (Bld)Ordered By: Bob Elias on 03-19-2023 Immature granulocytes/100 WBC (Bld) 1.600 % 0.0-0.9 [facility] Comment on above: IG% - Immature Granu locytes (promyelocytes, myelocytes and metamyelocytes) > 1% indicates that a LEFT SHIFT is Present. International normalized rat io (INR) calculationOrdered By: Bob Elias on 03-19-2023 INR Coag (PPP) [Relative time] 9.4 {INR} [facility] Comment on above: CRITICAL VALUE VERIF IED. CALLED TO MYNOR MITCHELL (ER)03/19/23 1200 [address].RESULTS READ BACK BY SAME. Laboratory - Chemistry and C hemistry - challengeOrdered By: Bob Elias on 03-19-2023 CO2 [Moles/Vol] 26.0 mmol/L 21.0-32.0 [facility] Urea nitrogen/Creatinine [Mass ratio] 35.7 mg/mg 10-20 [facility] Laboratory - CoagulationOrde red By: Bob Elias on 03-19-2023 PT Coag (PPP) [Time] 78.0 s 11.7-14.9 [facility] Laboratory - Hematology and Cell countsOrdered By: Bob Elias on 03-19-2023 MCH (RBC) [Entitic mass] 26.5 pg 27.0-32.0 [facility] MCHC (RBC) [Mass/Vol] 32.5 g/dL 32-36 [facility] Nucleated RBC/100 WBC (Bld) [Ratio] 0 % 0-5 [facility] Platelets (Bld) [#/Vol] 145 10*3/uL 150-450 [facility] Laboratory - Microbiology an d Antimicrobial susceptibilityOrdered By: Bob Elias on 03-19-2023 SARS-CoV-2 (COVID-19) RNA GWEN+probe Ql (Unsp spec) SARS-CoV-2 (COVID 19 PCR) [facility] SARS-CoV-2 (COVID-19) RNA GWEN+probe Ql (Unsp spec) SARS-CoV-2 (COVID 19 PCR) [facility] Lactate (Bld) [Moles/Vol]on 03-19-2023 Lactate [Moles/Vol] 1.2 mmol/L Normal 0.5-2.2 [facility] Comment on above: Order Comment: Speci men Type: BLOOD SPECIMEN Ordering Facility: [facility] Address: [address] [place] [address] Performed By: #### 1 4196-0, 19200-9 #### [facility] CLIA [id number] [address] [place] [id number] [place] No Panel InformationOrdered By: Bob Elias on 03-19-2023 Estimated Creatinine Clearance Calc 44.81 ml/min [facility] Estimated GFR (MDRD) Amer 73 mL/min >60 [facility] Comment on above: GFR Calc Estimated GFR (MDRD) Non-Af Amer 61 mL/min >60 [facility] Comment on above: Non- GFR Calc 26.5 pg 27.0-32.0 [facility] 32.5 g/dL 32-36 [facility] 145 K/mm3 150-450 [facility] 0 % 0-5 [facility] 78.0 SECONDS 11.7-14.9 [facility] 61 mL/min >60 [facility] 73 mL/min >60 [facility] 44.81 ml/min [facility] 35.7 RATIO 10-20 [facility] 26.0 mmol/L 21.0-32.0 [facility] SARS-CoV-2 (COVID 19 PCR) [facility] PT panel Coag (PPP)on 2023 INR Coag (PPP) [Relative time] {INR} High 0.9-1.3 [facility] Comment on above: Order Comment: Speci men Type: BLOOD SPECIMEN Ordering Facility: [facility] Address: [address] [place] [address] Result Comment: Halle min K Antagonist (VKA) Therapeutic Range: INR 2 to 3 (Target INR of 2.5) Note: For patients treated with VKA drugs, such as warfarin, the [employer] [employer] 2012 Guideline recommends [...] GH, et al. Chest 2012, 141:7S-47S Mitzi TOLEOD et al. [facility] 2017, 70: 252-289 Performed By: #### 1 4196-0, 96035-4 #### [facility] CLIA [id number] 1 [place] [address] [place] PT Coag (PPP) [Time] 76.9 s High 9.7-13.0 [facility] Comment on above: Order Comment: Speci men Type: BLOOD SPECIMEN Ordering Facility: [facility] Address: [address] [place] [address] Performed By: #### 1 4196-0, 07855-9 #### [facility] CLIA [id number] [address] [place] [id number] [place] Platelet mean volume Nicholas-Ec ker (Bld) [Entitic vol]Ordered By: Bob Elias on 03-19-2023 Platelet mean volume (Bld) [Entitic vol] 10.3 fL 6.2-12.0 [facility] RBC Auto (Bld) [#/Vol]Ordere d By: Bob Elias on 03-19-2023 RBC (Bld) [#/Vol] 3.40 10*6/uL 4.2-5.4 [facility] Serum or plasma calcium monica urement (mass/volume)Ordered By: Bob Elias on 03-19-2023 Calcium [Mass/Vol] 9.1 mg/dL 8.5-10.1 [facility] Serum or plasma creatinine m easurement (mass/volume)Ordered By: Bob Elias on 03-19-2023 Creatinine [Mass/Vol] 0.95 mg/dL 0.55-1.02 [facility] Comment on above: The validity of the calculated GFR & GFRAA in patients over 70 years has not been determined. Clinical correlation is essential. Serum or plasma urea nitroge n measurement (mass/volume)Ordered By: Bob Elias on 03-19-2023 Urea nitrogen [Mass/Vol] 34 mg/dL 7-18 [facility] Thin prep Papanicolaou smear with manual screeningOrdered By: Bob Elias on 03-19-2023 Thin prep Papanicolaou smear with manual screening 4 5-15 [facility] COVID & INFLUENZA A/B & RSV NAAT, ROUTINEon 02-07-2023 FLUAV RNA GWEN+probe Ql (Unsp spec) Not detected Not Detected [facility] FLUBV RNA GWEN+probe Ql (Unsp spec) Not detected Not Detected [facility] RSV A RNA GWEN+probe Ql (Unsp spec) Not detected Not Detected [facility] SARS-CoV-2 (COVID-19) RNA GWEN+probe Ql (Resp) Not detected See comment [facility] XR CHEST 2V FRONTAL/LATon [facility] XR Chest PA and Lateralon IMPRESSION: Mild prominence markings RIGHT lung base may be due to known RIGHT middle lobe bronchiectasis. Small infiltrate cannot be excluded. Science Instructor: PSCB Transcribe Date/Time: Feb 07 2023 11:42A Dictated by : JASMYN MÉNDEZ MD This examination was interpreted and the report reviewed and electronically signed by: JASMYN MÉNDEZ MD on Feb 07 2023 11:46[facility] DIVISION OF RADIOLOGY * * [...] soft tissues: Unremarkable. DIVISION OF RADIOLOGY Provider, [facility] - 02/07/2023 * * *Final [...] lobe bronchiectasis. Small infiltrate cannot be excluded. Science Instructor: KRYSTAL Transcribe Date/Time: Feb 07 2023 11:42A Dictated by : JASMYN MÉNDEZ MD This examination was interpreted and the report reviewed and electronically signed by: JASMYN MÉNDEZ MD on Feb 07 2023 11:46AM EST [facility] Radiology Study observation (narrative) [facility] XR Chest PA and LateralOrder ed By: Ccf Provider on 02-07-2023 [facility] INR (POC)on 01-04-2023 INR Coag (PPP) [Relative time] 2.6 {INR} High 0.8 - 1.2 [facility] Internal Quality Check Acceptable Cl [facility] SABINO SCREENING W TOMOon 11-17 [facility] ECG COMPLETEon 08-30-2022 Atrial Rate 75 BPM [facility] Calculated P [place] 63 degrees [facility] Calculated R [place] 46 degrees [facility] Calculated T [place] 58 degrees [facility] P-R Interval 156 ms [facility] QRS Duration 62 ms [facility] QT Interval 358 ms [facility] QTC Calculation (Bazett) 399 ms [facility] Ventricular Rate 75 BPM [facility] CT CHEST WO IVCONon 07-21-19 [facility] XR Pelvis and Hip - left AP and Lateral frogon 12-31-2021 IMPRESSION: No acute pathology. 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 Science Instructor: [facility] Transcribe Date/Time: Dec 31 2021 11:55A Dictated [...] are seen. DIVISION OF RADIOLOGY Provider, Narayan Wood [facility] - 12/31/2021 * * *Final Report* [...] acute pathology. 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 Science Instructor: KRYSTAL Transcribe Date/Time: Dec 31 2021 11:55A Dictated by : BANDAR BELL DO This examination was interpreted and the report reviewed and electronically signed by: BANDAR BELL DO on Dec 31 2021 11:58AM EST [facility] Radiology Study observation (narrative) [facility] XR Pelvis and Hip - left AP and Lateral frogOrdered By: Ccf Provider on 12-31-2021 [facility] No Panel Informationon 10-18 [facility] SABINO DIAGNOSTIC LTon 10-13-19 22 [facility] US BREAST LTD LTon 2 [facility] SABINO SCREENINGon 09-05-2021 [facility] INR in Blood by Coagulation assayon 07-07-2021 INR Coag (Bld) [Relative time] 1.7 {INR} [facility] Work Phone: Laboratory - Coagulationon 0 07-07-2021 PT Coag (PPP) [Time] 19.5 s 11.7-14.9 [facility] Work Phone: Histoplasma Ag, Urineon 01-1 4-2019 Histoplasma Ag,Urine Not Detected Normal [facility] Comment on above: Performed By: #### H ISUO #### The performing lab is in the report. Interpretation Not Detected Normal Not Detected [facility] Comment on above: Result Comment: INTE RPRETIVE [...] histoplasmosis. Test developed and characteristics determined by [employer]. See Compliance Statement B: [employer]/ Performed by [employer], [address] [place] [id number] [email or web address], Christopher Yen MD - Lab. Director Performed By: #### H ISUO #### The performing lab is in the report. Vital Signs Date Time Vital Sign Value Performing Clinician Facility 10-24-2024 13:12040 Body mass index (BMI) [Ratio] 23.51 kg/m2 Claudine Durán MD Work Phone: [facility] 10-24-2024 13:12-040 Body weight 58.3 kg Claudine Durán MD Work Phone: [facility] 10-24-2024 13:12-040 Diastolic blood pressure 62 mm[Hg] Claudine Durán MD Work Phone: [facility] 10-24-2024 13:12-040 Heart rate 81 /min Claudine Durán MD Work Phone: [facility] 10-24-2024 13:12-0400 Respiratory rate 16 /min Claudine Durán MD Work Phone: [facility] 10-24-2024 13:12-0400 SaO2% (BldA) [Mass fraction] 99 % Claudine Durán MD Work Phone: [facility] 10-24-2024 13:12-0400 Systolic blood pressure 124 mm[Hg] Claudine Durán MD Work Phone: [facility] 10-19-2024 02:41-0400 Diastolic blood pressure 88 mm[Hg] Dr. Claudine Durán MD Work Phone: [facility] 10-19-2024 02:41-0400 Heart rate 81 /min Dr. Claudine Durán MD Work Phone: 2(660)995-652223 [place] [address] 10-19-2024 02:41-0400 Respiratory rate 18 /min Dr. Claudine Durán MD Work Phone: 9(462)599-277423 [place] [address] 10-19-2024 02:41-0400 SaO2% (BldA) [Mass fraction] 99 % Dr. Claudine Durán MD Work Phone: [facility] 10-19-2024 02:41-0400 Systolic blood pressure 112 mm[Hg] Dr. Claudine Durán MD Work Phone: 2(409)152-650523 [place] [address] 10-19-2024 02:37-0400 Body temperature 98.2 [degF] Dr. Claudine Durán MD Work Phone: 0(839)507-952028 [place] [address] 10-19-2024 00:42-0400 Body height 160.[address] Claudine Durán MD Work Phone: 3(363)465-808028 [place] [address] 10-19-2024 00:42-0400 Body mass index (BMI) [Ratio] 23.1 kg/m2 Dr. Claudine Durán MD Work Phone: 0(636)700-989323 [place] [address] 10-19-2024 00:42-0400 Body weight 59.[address] Claudine Durán MD Work Phone: 0(574)931-567728 [place] [address] 10-02-2024 09:57-0400 Body height 160.[address] Claudine Durán MD Work Phone: 7(763)820-019323 [place] [address] 08-27-2024 16:27-0400 Body temperature 97.8 [degF] Dr. Claudine Durán MD Work Phone: 2(631)084-148423 [place] [address] 08-27-2024 16:27-0400 Diastolic blood pressure 53 mm[Hg] Dr. Claudine Durán MD Work Phone: 4(918)215-588423 [place] [address] 08-27-2024 16:27-0400 Heart rate 89 /min Dr. Claudine Durán MD Work Phone: 7(900)117-135123 [place] [address] 08-27-2024 16:27-0400 Respiratory rate 18 /min Dr. Claudine Durán MD Work Phone: 8(336)395-304623 [place] [address] 08-27-2024 16:27-0400 SaO2% (BldA) [Mass fraction] 97 % Dr. Claudine Durán MD Work Phone: 1(983)612-348123 [place] [address] 08-27-2024 16:27-0400 Systolic blood pressure 127 mm[Hg] Dr. Claudine Durán MD Work Phone: 7(779)240-430023 [place] [address] 08-27-2024 05:47-0400 Body mass index (BMI) [Ratio] 24 kg/m2 Dr. Claudine Durán MD Work Phone: 6(545)062-899423 [place] [address] 08-27-2024 05:47-0400 Body weight 61.[address] Claudine Durán MD Work Phone: 7(306)786-415223 [place] [address] 08-23-2024 11:59-0400 Body temperature 98.2 [degF] Dr. Claudine Durán MD Work Phone: 1(123)389-116623 [place] [address] 08-23-2024 11:59-0400 Diastolic blood pressure 82 mm[Hg] Dr. Claudine Durán MD Work Phone: 8(985)487-459023 [place] [address] 08-23-2024 11:59-0400 Heart rate 80 /min Dr. Claudine Durán MD Work Phone: 8(061)647-366923 [place] [address] 08-23-2024 11:59-0400 Respiratory rate 16 /min Dr. Claudine Durán MD Work Phone: 3(533)423-856628 [place] [address] 08-23-2024 11:59-0400 SaO2% (BldA) [Mass fraction] 100 % Dr. Claudine Durán MD Work Phone: 0(836)262-794023 [place] [address] 08-23-2024 11:59-0400 Systolic blood pressure 148 mm[Hg] Dr. Claudine Durán MD Work Phone: 2(009)821-942628 [place] [address] 08-23-2024 11:43-0400 Body height 160.[address] Claudine Durán MD Work Phone: 3(124)093-762023 [place] [address] 08-23-2024 11:43-0400 Body mass index (BMI) [Ratio] 22.8 kg/m2 Dr. Claudine Durán MD Work Phone: 4(612)868-003028 [place] [address] 08-23-2024 11:43-0400 Body weight 58.[address] Claudine Durán MD Work Phone: 1(672)741-675128 [place] [address] 08-21-2024 11:14-0400 Body weight 59.[address] Claudine Durán MD Work Phone: 8(081)328-105728 [place] [address] 07-24-2024 10:25-0400 Body height 160.[address] Claudine Durán MD Work Phone: 0(947)894-993728 [place] [address] 07-24-2024 10:25-0400 Body weight 60.[address] Claudine Durán MD Work Phone: 7(018)860-167928 [place] [address] 07-22-2024 14:20-0400 Body height 157.5 cm Brissa Chester APRN.DIE PRESSER Work Phone: [facility] 07-22-2024 14:20-0400 Body mass index (BMI) [Ratio] 23.67 kg/m2 Brissa Chester [employer].DIE PRESSER Work Phone: [facility] 07-22-2024 14:20-0400 Body weight 58.7 kg Brissa Chester [employer] ETCHER.DIE PRESSER Work Phone: [facility] 07-22-2024 14:20-0400 Diastolic blood pressure 65 mm[Hg] Brissa Chester [employer]CHER.DIE PRESSER Work Phone: [facility] 07-22-2024 14:20-0400 Heart rate 75 /min Brissa Chester [employer]CHER.DIE PRESSER Work Phone: [facility] 07-22-2024 14:20-0400 Respiratory rate 18 /min Brissa Chester [employer]CH[employer].DIE PRESSER Work Phone: [facility] 07-22-2024 14:20-0400 SaO2% (BldA) [Mass fraction] 98 % Brissa Chester [employer]CH[employer].DIE PRESSER Work Phone: [facility] 07-22-2024 14:20-0400 Systolic blood pressure 140 mm[Hg] Brissa Chester [employer]CH[employer].DIE PRESSER Work Phone: [facility] 06-27-2024 08:19-0400 Body height 160.[address] Claudine Durán MD Work Phone: [facility] 06-27-2024 08:19-0400 Body weight 58.[address] Claudine Durán MD Work Phone: [facility] 06-20-2024 10:09-0400 Body mass index (BMI) [Ratio] 22.8 kg/m2 Dr. Claudine Durán MD Work Phone: [facility] 06-20-2024 10:09-0400 Body weight 58.[address] Claudine Durán MD Work Phone: [facility] 06-20-2024 10:09-0400 Diastolic blood pressure 74 mm[Hg] Dr. Claudine Durán MD Work Phone: [facility] 06-20-2024 10:09-0400 Heart rate 85 /min Dr. Claudine Durán MD Work Phone: [facility] 06-20-2024 10:09-0400 Respiratory rate 18 /min Dr. Claudine Durán MD Work Phone: 7(135)333-030828 [place] [address] 06-20-2024 10:09-0400 SaO2% (BldA) [Mass fraction] 98 % Dr. Claudine Durán MD Work Phone: 0(208)631-195523 [place] [address] 06-20-2024 10:09-0400 Systolic blood pressure 125 mm[Hg] Dr. Claudine Durán MD Work Phone: 3(592)232-851823 [place] [address] 05-28-2024 08:23-0400 Body mass index (BMI) [Ratio] 21.9 kg/m2 Dr. Claudine Durán MD Work Phone: 8(981)299-513023 [place] [address] 05-28-2024 08:20-0400 Body height 160.[address] Claudine Durán MD Work Phone: 5(194)149-949923 [place] [address] 05-28-2024 08:20-0400 Body weight 56.[address] Claudine Durán MD Work Phone: 0(896)771-314323 [place] [address] 05-28-2024 08:10-0400 Diastolic blood pressure 54 mm[Hg] Dr. Claudine Durán MD Work Phone: 6(173)346-932523 [place] [address] 05-28-2024 08:10-0400 Heart rate 84 /min Dr. Claudine Durán MD Work Phone: 6(752)094-888723 [place] [address] 05-28-2024 08:10-0400 SaO2% (BldA) [Mass fraction] 98 % Dr. Claudine Durán MD Work Phone: 9(204)896-532523 [place] [address] 05-28-2024 08:10-0400 Systolic blood pressure 100 mm[Hg] Dr. Claudine Durán MD Work Phone: 3(996)540-404823 [place] [address] 05-20-2024 12:53-0400 Body height 159.5 cm Jimbo Swanson APRN.[facility] [facility] MAGISTRATE Work Phone: 3(898)660-807718 [place] [address] 05-20-2024 12:53-0400 Body mass index (BMI) [Ratio] 23.23 kg/m2 Jimbo Swanson APRN.[facility] [facility] MAGISTRATE Work Phone: [facility] 05-20-2024 12:53-0400 Body weight 59.1 kg Jimbo Swanson [employer].[address] [employer] Work Phone: [facility] 05-20-2024 12:53-0400 Diastolic blood pressure 65 mm[Hg] Jimbo Swanson [employer].[address] [facility] MAG[facility]RATE Work Phone: [facility] 05-20-2024 12:53-0400 Heart rate 92 /min Jimbo Swanson [employer].[address] [facility] MAGISTRATE Work Phone: [facility] 05-20-2024 12:53-0400 Respiratory rate 16 /min Jimbo Swanson [employer].[address] MAGISTRATE Work Phone: [facility] 05-20-2024 12:53-0400 Systolic blood pressure 113 mm[Hg] Jimbo Swanson [employer].[address] [facility] MAG[facility]RATE Work Phone: [facility] 05-05-2024 08:34-0400 Diastolic blood pressure 71 mm[Hg] Adalid Maret [employer]ESS[employer] Work Phone: [facility] 05-05-2024 08:34-0400 Heart rate 82 /min Adalid Maret [employer] PRESSER Work Phone: [facility] 05-05-2024 08:34-0400 Systolic blood pressure 139 mm[Hg] Adalid Maret [employer]ESS[employer] Work Phone: [facility] 04-30-2024 13:04-0400 Body height 160 cm [facility] 04-30-2024 13:04-0400 Body mass index (BMI) [Ratio] 23.21 kg/m2 [facility] 04-30-2024 13:04-0400 Body weight 59.42 kg [facility] 04-30-2024 13:04-0400 Diastolic blood pressure 63 mm[Hg] [facility] 04-30-2024 13:04-0400 Heart rate 88 /min [facility] 04-30-2024 13:04-0400 Respiratory rate 16 /min [facility] 04-30-2024 13:04-0400 Systolic blood pressure 115 mm[Hg] [facility] 04-21-2024 10:44-0500 Body height 160 cm Geno Hart MD Work Phone: [facility] 04-21-2024 10:44-0500 Body mass index (BMI) [Ratio] 23.82 kg/m2 Geno Hart MD Work Phone: [facility] 04-21-2024 10:44-0500 Body temperature 97.9 [degF] Geno Hart MD Work Phone: [facility] 04-21-2024 10:44-0500 Body weight 61 kg Geno Hart MD Work Phone: [facility] 04-21-2024 10:44-0500 Diastolic blood pressure 84 mm[Hg] Geno Hart MD Work Phone: [facility] 04-21-2024 10:44-0500 Heart rate 103 /min Geno Hart MD Work Phone: [facility] 04-21-2024 10:44-0500 Respiratory rate 18 /min Geno Hart MD Work Phone: [facility] 04-21-2024 10:44-0500 SaO2% (BldA) [Mass fraction] 97 % Geno Hart MD Work Phone: [facility] 04-21-2024 10:44-0500 Systolic blood pressure 146 mm[Hg] Geno Hart MD Work Phone: [facility] 03-21-2024 09:28-0500 Body height 160 cm Juvencio Saeed MD Work Phone: [facility] 03-21-2024 09:28-0500 Body mass index (BMI) [Ratio] 23.03 kg/m2 Juvencio Saeed MD Work Phone: [facility] 03-21-2024 09:28-0500 Body weight 58.97 kg Juvencio Saeed MD Work Phone: [facility] 03-21-2024 09:28-0500 Diastolic blood pressure 77 mm[Hg] Juvencio Saeed MD Work Phone: [facility] 03-21-2024 09:28-0500 Heart rate 96 /min Juvencio Saeed MD Work Phone: [facility] 03-21-2024 09:28-0500 Respiratory rate 18 /min Juvencio Saeed MD Work Phone: [facility] 03-21-2024 09:28-0500 SaO2% (BldA) [Mass fraction] 96 % Juvencio Saeed MD Work Phone: [facility] Comment on above: RA 03-21-2024 09:28-0500 Systolic blood pressure 141 mm[Hg] Juvencio Saeed MD Work Phone: [facility] 02-29-2024 16:45-0500 Body mass index (BMI) [Ratio] 22.92 kg/m2 Claudine Durán MD Work Phone: [facility] 02-29-2024 16:45-0500 Body temperature 98.8 [degF] Claudine Durán MD Work Phone: [facility] 02-29-2024 16:45-0500 Body weight 58.7 kg Claudine Durán MD Work Phone: [facility] 02-29-2024 16:45-0500 Diastolic blood pressure 86 mm[Hg] Claudine Durán MD Work Phone: [facility] 02-29-2024 16:45-0500 Heart rate 85 /min Claudine Durán MD Work Phone: [facility] 02-29-2024 16:45-0500 Respiratory rate 16 /min Claudine Durán MD Work Phone: [facility] 02-29-2024 16:45-0500 SaO2% (BldA) [Mass fraction] 97 % Claudine Durán MD Work Phone: [facility] 02-29-2024 16:45-0500 Systolic blood pressure 138 mm[Hg] Claudine Durán MD Work Phone: [facility] 01-02-2024 09:09-0500 Body height 160 cm Lili Roche MD Work Phone: [facility] 01-02-2024 09:09-0500 Body mass index (BMI) [Ratio] 21.97 kg/m2 Lili Roche MD Work Phone: [facility] 01-02-2024 09:09-0500 Body weight 56.25 kg Lili Roche MD Work Phone: [facility] 01-02-2024 09:09-0500 Diastolic blood pressure 57 mm[Hg] Lili Roche MD Work Phone: [facility] 01-02-2024 09:09-0500 Heart rate 81 /min Lili Roche MD Work Phone: [facility] 01-02-2024 09:09-0500 SaO2% (BldA) [Mass fraction] 97 % Lili Roche MD Work Phone: [facility] 01-02-2024 09:09-0500 Systolic blood pressure 124 mm[Hg] Lili Roche MD Work Phone: [facility] 12-18-2023 11:02-0400 Body height 160 cm Geno Hart MD Work Phone: [facility] 12-18-2023 11:02-0400 Body mass index (BMI) [Ratio] 22.3 kg/m2 Geno Hart MD Work Phone: [facility] 12-18-2023 11:02-0400 Body temperature 98.71 [degF] Geno Hart MD Work Phone: [facility] 12-18-2023 11:02-0400 Body weight 57.11 kg Geno Hart MD Work Phone: [facility] 12-18-2023 11:02-0400 Diastolic blood pressure 75 mm[Hg] Geno Hart MD Work Phone: [facility] 12-18-2023 11:02-0400 Heart rate 84 /min Geno Hart MD Work Phone: [facility] 12-18-2023 11:02-0400 Respiratory rate 16 /min Geno Hart MD Work Phone: [facility] 12-18-2023 11:02-0400 SaO2% (BldA) [Mass fraction] 98 % Geno Hart MD Work Phone: [facility] 12-18-2023 11:02-0400 Systolic blood pressure 146 mm[Hg] Geno Hart MD Work Phone: [facility] 10-18-2023 10:03-0400 Body height 160 cm Bibi Alegria [employer] Work Phone: [facility] 10-18-2023 10:03-0400 Body mass index (BMI) [Ratio] 20.62 kg/m2 Bibi Alegria [employer]ESSER Work Phone: [facility] 10-18-2023 10:03-0400 Body weight 52.8 kg Bibi Alegrai [employer]ESSER Work Phone: [facility] 10-18-2023 10:03-0400 Diastolic blood pressure 60 mm[Hg] Bibi Alegria [employer] PRESSER Work Phone: [facility] 10-18-2023 10:03-0400 Heart rate 82 /min Bibi Alegria [employer] PRESSER Work Phone: [facility] 10-18-2023 10:03-0400 SaO2% (BldA) [Mass fraction] 99 % Bibi Alegria [employer] PRESSER Work Phone: [facility] 10-18-2023 10:03-0400 Systolic blood pressure 120 mm[Hg] Bibi Alegria [employer] Work Phone: [facility] 10-11-2023 13:05-0400 Body mass index (BMI) [Ratio] 20.54 kg/m2 Jimbo Swanson [employer].[address] MAGISTRATE Work Phone: [facility] 10-11-2023 13:05-0400 Body weight 52.6 kg Jimbo Swanson [employer].[address] MAGISTRATE Work Phone: [facility] 10-11-2023 13:05-0400 Diastolic blood pressure 62 mm[Hg] Jimbo Swanson [employer].[address] MAGISTRATE Work Phone: [facility] 10-11-2023 13:05-0400 Heart rate 68 /min Jimbo Swanson [employer].[address] MAGISTRATE Work Phone: [facility] 10-11-2023 13:05-0400 Respiratory rate 16 /min Jimbo Swanson [employer].[address] MAGISTRATE Work Phone: [facility] 10-11-2023 13:05-0400 Systolic blood pressure 107 mm[Hg] Jimbo Swasnon [employer].[address] MAGISTRATE Work Phone: [facility] 08-28-2023 08:48-0400 Body height 160 cm Geno Hart MD Work Phone: [facility] 08-28-2023 08:48-0400 Body mass index (BMI) [Ratio] 23.45 kg/m2 Geno Hart MD Work Phone: [facility] 08-28-2023 08:48-0400 Body temperature 98.29 [degF] Geno Hart MD Work Phone: [facility] 08-28-2023 08:48-0400 Body weight 60.06 kg Geno Hart MD Work Phone: [facility] 08-28-2023 08:48-0400 Diastolic blood pressure 69 mm[Hg] Geno Hart MD Work Phone: [facility] 08-28-2023 08:48-0400 Heart rate 79 /min Geno Hart MD Work Phone: [facility] 08-28-2023 08:48-0400 Respiratory rate 18 /min Geno Hart MD Work Phone: [facility] 08-28-2023 08:48-0400 SaO2% (BldA) [Mass fraction] 98 % Geno Hart MD Work Phone: [facility] 08-28-2023 08:48-0400 Systolic blood pressure 129 mm[Hg] Geno Hart MD Work Phone: [facility] 08-27-2023 08:25-0400 Body height 160 cm William Messina DO Work Phone: [facility] 08-27-2023 08:25-0400 Body mass index (BMI) [Ratio] 22.67 kg/m2 William Messina DO Work Phone: [facility] 08-27-2023 08:25-0400 Body weight 58.06 kg William Messina DO Work Phone: [facility] 08-27-2023 08:25-0400 Diastolic blood pressure 68 mm[Hg] William Messina DO Work Phone: [facility] 08-27-2023 08:25-0400 Heart rate 81 /min William Messina DO Work Phone: [facility] 08-27-2023 08:25-0400 SaO2% (BldA) [Mass fraction] 99 % William Messina DO Work Phone: [facility] 08-27-2023 08:25-0400 Systolic blood pressure 116 mm[Hg] William Messina DO Work Phone: [facility] 08-22-2023 10:38-0400 Body mass index (BMI) [Ratio] 23.19 kg/m2 Claudine Durán MD Work Phone: [facility] 08-22-2023 10:38-0400 Body temperature 96.01 [degF] Claudine Durán MD Work Phone: [facility] 08-22-2023 10:38-0400 Body weight 59.38 kg Claudine Durán MD Work Phone: [facility] 08-22-2023 10:38-0400 Diastolic blood pressure 72 mm[Hg] Claudine Durán MD Work Phone: [facility] 08-22-2023 10:38-0400 Heart rate 70 /min Claudine Durán MD Work Phone: [facility] 08-22-2023 10:38-0400 Respiratory rate 18 /min Claudine Durán MD Work Phone: [facility] 08-22-2023 10:38-0400 SaO2% (BldA) [Mass fraction] 98 % Claudine Durán MD Work Phone: [facility] 08-22-2023 10:38-0400 Systolic blood pressure 116 mm[Hg] Claudine Durán MD Work Phone: [facility] 08-08-2023 14:39-0400 Body mass index (BMI) [Ratio] 22.32 kg/m2 Twyla Mason [employer] Work Phone: [facility] 08-08-2023 14:39-0400 Body weight 57.15 kg Twyla Mason [employer]ER Work Phone: [facility] 08-08-2023 14:39-0400 Diastolic blood pressure 72 mm[Hg] Twyla Mason [employer]ER Work Phone: [facility] 08-08-2023 14:39-0400 Heart rate 78 /min Twyla Mason [employer] PRESSER Work Phone: [facility] 08-08-2023 14:39-0400 Systolic blood pressure 136 mm[Hg] Twyla Mason [employer] PRESSER Work Phone: [facility] 07-10-2023 14:22-0400 Body mass index (BMI) [Ratio] 21.79 kg/m2 Jimbo Swanson [employer].[address] [facility] MAGISTRATE Work Phone: [facility] 07-10-2023 14:22-0400 Body weight 55.79 kg Jimbo Swanson [employer].[address] MAGISTRATE Work Phone: [facility] 07-10-2023 14:22-0400 Diastolic blood pressure 66 mm[Hg] Jimbo Swanson [employer].[address] MAG[facility]RATE Work Phone: [facility] 07-10-2023 14:22-0400 Heart rate 94 /min Jimbo Swanson [employer].[address] [facility] MAG[facility]RATE Work Phone: [facility] 07-10-2023 14:22-0400 Respiratory rate 16 /min Jimbo Sans [employer].[address] [facility] MAGISTRATE Work Phone: [facility] 07-10-2023 14:22-0400 Systolic blood pressure 119 mm[Hg] Jimbo Jv [employer] MAGISTRATE Work Phone: [facility] 06-05-2023 14:44-0400 Body mass index (BMI) [Ratio] 21.91 kg/m2 Claudine Durán MD Work Phone: [facility] 06-05-2023 14:44-0400 Body temperature 98.2 [degF] Claudine Durán MD Work Phone: [facility] 06-05-2023 14:44-0400 Body weight 56.11 kg Claudine Durán MD Work Phone: [facility] 06-05-2023 14:44-0400 Diastolic blood pressure 74 mm[Hg] Claudine Durán MD Work Phone: [facility] 06-05-2023 14:44-0400 Heart rate 93 /min Claudine Durán MD Work Phone: [facility] 06-05-2023 14:44-0400 Respiratory rate 18 /min Claudine Durán MD Work Phone: [facility] 06-05-2023 14:44-0400 SaO2% (BldA) [Mass fraction] 96 % Claudine Durán MD Work Phone: [facility] 06-05-2023 14:44-0400 Systolic blood pressure 122 mm[Hg] Claudine Durán MD Work Phone: [facility] 04-30-2023 12:45-0400 Body temperature 97.6 [degF] Dr. Claudine Durán Work Phone: [facility] 04-30-2023 12:45-0400 Diastolic blood pressure 61 mm[Hg] Dr. Claudine Durán Work Phone: [facility] 04-30-2023 12:45-0400 Heart rate 97 /min Dr. Claudine Durán Work Phone: 8(093)287-994423 [place] [address] 04-30-2023 12:45-0400 Respiratory rate 16 /min Dr. Claudine Durán Work Phone: 8(704)420-109723 [place] [address] 04-30-2023 12:45-0400 SaO2% (BldA) [Mass fraction] 95 % Dr. Claudine Durán Work Phone: 1(324)616-076823 [place] [address] 04-30-2023 12:45-0400 Systolic blood pressure 102 mm[Hg] Dr. Claudine Durán Work Phone: 1(001)422-797023 [place] [address] 04-25-2023 12:25-0500 Body height 160.[address] Claudine Durán Work Phone: 0(594)020-563823 [place] [address] 04-25-2023 12:25-0500 Body weight 54.[address] Claudine Durán Work Phone: 8(377)658-461423 [place] [address] 04-24-2023 12:11-0500 Body mass index (BMI) [Ratio] 21.2 kg/m2 Dr. Claudine Durán Work Phone: 6(103)249-500123 [place] [address] 04-16-2023 07:18-0500 Heart rate 94 /min Dr. Claudine Durán Work Phone: 7(196)048-659723 [place] [address] 04-16-2023 07:18-0500 Respiratory rate 18 /min Dr. Claudine Durán Work Phone: 2(274)831-320423 [place] [address] 04-16-2023 07:18-0500 SaO2% (BldA) [Mass fraction] 98 % Dr. Claudine Durán Work Phone: 3(599)526-241423 [place] [address] 04-15-2023 14:36-0500 Body temperature 98.5 [degF] Dr. Claudine Durán Work Phone: 9(590)815-480423 [place] [address] 04-15-2023 14:36-0500 Diastolic blood pressure 61 mm[Hg] Dr. Claudine Durán Work Phone: 8(339)398-647023 [place] [address] 04-15-2023 14:36-0500 Systolic blood pressure 106 mm[Hg] Dr. Claudine Durán Work Phone: 2(040)735-377823 [place] [address] 04-11-2023 15:11-0500 Body height 160.[address] Claudine Durán Work Phone: 1(315)464-078423 [place] [address] 04-11-2023 15:11-0500 Body weight 58.[address] Claudine Durán Work Phone: 2(762)859-707023 [place] [address] 04-10-2023 14:06-0500 Body mass index (BMI) [Ratio] 22.9 kg/m2 Dr. Claudine Durán Work Phone: 7(145)106-038423 [place] [address] 04-05-2023 08:40-0500 Body temperature 98.1 [degF] Dr. Claudine Durán Work Phone: 4(488)174-438923 [place] [address] 04-05-2023 08:40-0500 Diastolic blood pressure 65 mm[Hg] Dr. Claudine Durán Work Phone: 8(104)852-129823 [place] [address] 04-05-2023 08:40-0500 Heart rate 98 /min Dr. Claudine Durán Work Phone: 9(848)223-056023 [place] [address] 04-05-2023 08:40-0500 Respiratory rate 16 /min Dr. Claudien Durán Work Phone: 9(612)634-500023 [place] [address] 04-05-2023 08:40-0500 SaO2% (BldA) [Mass fraction] 96 % Dr. Claudine Durán Work Phone: 8(241)787-222323 [place] [address] 04-05-2023 08:40-0500 Systolic blood pressure 117 mm[Hg] Dr. Claudine Durán Work Phone: 7(934)627-621823 [place] [address] 04-05-2023 01:48-0500 Body mass index (BMI) [Ratio] 21.5 kg/m2 Dr. Claudine Durán Work Phone: 9(630)423-234823 [place] [address] 04-05-2023 01:48-0500 Body weight 55.[address] Claudine Durán Work Phone: 8(218)994-712128 [place] [address] 04-04-2023 13:52-0500 Body height 160.[address] Claudine Durán Work Phone: 7(931)950-872723 [place] [address] 03-31-2023 20:00-0500 Diastolic blood pressure 50 mm[Hg] Dr. Claudine Durán Work Phone: 1(676)098-666023 [place] [address] 03-31-2023 20:00-0500 Heart rate 77 /min Dr. Claudine Durán Work Phone: 9(117)819-696623 [place] [address] 03-31-2023 20:00-0500 Respiratory rate 17 /min Dr. Claudine Durán Work Phone: 4(732)100-475623 [place] [address] 03-31-2023 20:00-0500 SaO2% (BldA) [Mass fraction] 98 % Dr. Claudine Durán Work Phone: 2(428)393-949923 [place] [address] 03-31-2023 20:00-0500 Systolic blood pressure 108 mm[Hg] Dr. Claudine Durán Work Phone: 7(957)240-417623 [place] [address] 03-31-2023 16:48-0500 Body height 160.[address] Claudine Durán Work Phone: 3(817)698-130423 [place] [address] 03-31-2023 16:48-0500 Body mass index (BMI) [Ratio] 23.4 kg/m2 Dr. Claudine Durán Work Phone: 8(003)449-076223 [place] [address] 03-31-2023 16:48-0500 Body temperature 98.3 [degF] Dr. Claudine Durán Work Phone: 4(193)635-543223 [place] [address] 03-31-2023 16:48-0500 Body weight 60.[address] Claudine Durán Work Phone: 0(116)619-968723 [place] [address] 03-28-2023 20:54-0500 Diastolic blood pressure 79 mm[Hg] Dr. Claudine Durán Work Phone: 1(862)704-147123 [place] [address] 03-28-2023 20:54-0500 Heart rate 91 /min Dr. Claudine Durán Work Phone: 3(778)543-628428 [place] [address] 03-28-2023 20:54-0500 Respiratory rate 19 /min Dr. Claudine Durán Work Phone: 8(118)406-915228 [place] [address] 03-28-2023 20:54-0500 SaO2% (BldA) [Mass fraction] 97 % Dr. Claudine Durán Work Phone: 5(775)177-413728 [place] [address] 03-28-2023 20:54-0500 Systolic blood pressure 121 mm[Hg] Dr. Claudine Durán Work Phone: 5(312)716-919523 [place] [address] 03-28-2023 16:33-0500 Body height 160.[address] Claudine Durán Work Phone: 6(137)349-879823 [place] [address] 03-28-2023 16:33-0500 Body mass index (BMI) [Ratio] 23.7 kg/m2 Dr. Claudine Durán Work Phone: 6(107)566-258123 [place] [address] 03-28-2023 16:33-0500 Body temperature 97.3 [degF] Dr. Claudine Durán Work Phone: 3(735)080-156123 [place] [address] 03-28-2023 16:33-0500 Body weight 60.[address] Claudine Durán Work Phone: 3(408)772-493723 [place] [address] 03-27-2023 13:43-0500 Heart rate 101 /min Dr. Claudine Durán Work Phone: 6(665)489-023528 [place] [address] 03-27-2023 13:43-0500 Respiratory rate 19 /min Dr. Claudine uDrán Work Phone: 7(209)392-847528 [place] [address] 03-27-2023 10:00-0500 Body temperature 98.2 [degF] Dr. Claudine Durán Work Phone: 1(706)027-913123 [place] [address] 03-27-2023 10:00-0500 Diastolic blood pressure 63 mm[Hg] Dr. Claudine Durán Work Phone: 7(487)113-093723 [place] [address] 03-27-2023 10:00-0500 SaO2% (BldA) [Mass fraction] 94 % Dr. Claudine Durán Work Phone: [facility] 03-27-2023 10:00-0500 Systolic blood pressure 105 mm[Hg] Dr. Claudine Durán Work Phone: [facility] 03-27-2023 05:41-0500 Body mass index (BMI) [Ratio] 22.6 kg/m2 Dr. Claudine Durán Work Phone: [facility] 03-27-2023 05:41-0500 Body weight 58.[address] Claudine Durán Work Phone: [facility] 03-26-2023 15:00-0500 Diastolic blood pressure 75 mm[Hg] [facility] 03-26-2023 15:00-0500 Heart rate 87 /min [facility] [place] 03-26-2023 15:00-0500 Respiratory rate 19 /min [facility] 03-26-2023 15:00-0500 SaO2% (BldA) [Mass fraction] 95 % [facility] 03-26-2023 15:00-0500 Systolic blood pressure 128 mm[Hg] [facility] 03-26-2023 10:48-0500 Body height 165.1 cm [facility] 03-26-2023 10:48-0500 Body mass index (BMI) [Ratio] 23.3 kg/m2 [facility] 03-26-2023 10:48-0500 Body temperature 97.3 [degF] [facility] 03-26-2023 10:48-0500 Body weight 63.5 kg [facility] 03-19-2023 16:51-0500 Diastolic blood pressure 65 mm[Hg] [facility] 03-19-2023 16:51-0500 Systolic blood pressure 117 mm[Hg] [facility] 03-19-2023 10:07-0500 Body height 165.1 cm [facility] [place] 03-19-2023 10:07-0500 Body mass index (BMI) [Ratio] 20.3 kg/m2 [facility] 03-19-2023 10:07-0500 Body temperature 98.3 [degF] [facility] 03-19-2023 10:07-0500 Body weight 55.48 kg [facility] [place] 03-19-2023 10:07-0500 Heart rate 111 /min [facility] [place] 03-19-2023 10:07-0500 Respiratory rate 16 /min [facility] 03-19-2023 10:07-0500 SaO2% (BldA) [Mass fraction] 100 % [facility] 02-07-2023 10:36-0500 Body temperature 98.6 [degF] Adri Callow [employer]IE PRESSER Work Phone: [facility] 02-07-2023 10:36-0500 Body weight 59.69 kg Adri Callow [employer].DIE PRESSER Work Phone: [facility] 02-07-2023 10:36-0500 Diastolic blood pressure 82 mm[Hg] Adri Callow [employer]CH[employer].DIE PRESSER Work Phone: [facility] 02-07-2023 10:36-0500 Heart rate 87 /min Adri Callow [employer]CH[employer].DIE PRESSER Work Phone: [facility] 02-07-2023 10:36-0500 Respiratory rate 18 /min Adri Callow [employer]CH[employer].DIE PRESSER Work Phone: [facility] 02-07-2023 10:36-0500 SaO2% (BldA) [Mass fraction] 98 % Adri Callow [employer]CH[employer].DIE PRESSER Work Phone: [facility] 02-07-2023 10:36-0500 Systolic blood pressure 134 mm[Hg] Adri Callow [employer].DIE PRESSER Work Phone: [facility] 01-04-2023 10:33-0500 Body weight 58.06 kg Jimbo Swanson [employer] ETCHER.[address] MAGISTRATE Work Phone: [facility] 01-04-2023 10:33-0500 Diastolic blood pressure 75 mm[Hg] Jimbo Swanson [employer] ETCHER.[address] MAGISTRATE Work Phone: [facility] 01-04-2023 10:33-0500 Heart rate 77 /min Jimbo Swanson [employer] ETCHER.[address] MAGISTRATE Work Phone: [facility] 01-04-2023 10:33-0500 Respiratory rate 16 /min Jimbo Swanson [employer] ETCHER.[address] MAGISTRATE Work Phone: [facility] 01-04-2023 10:33-0500 Systolic blood pressure 128 mm[Hg] Jimbo Swanson [employer] ETCHER.[address] MAGISTRATE Work Phone: [facility] 10-27-2022 09:03-0400 Body weight 59.42 kg Jimbo Swanson [employer] ETCHER.[address] MAGISTRATE Work Phone: [facility] 10-27-2022 09:03-0400 Diastolic blood pressure 66 mm[Hg] Jimbo Swanson [employer] ETCHER.[address] MAGISTRATE Work Phone: [facility] 10-27-2022 09:03-0400 Heart rate 76 /min Jimbo Swanson [employer] ETCHER.[address] MAGISTRATE Work Phone: [facility] 10-27-2022 09:03-0400 Respiratory rate 16 /min Jimbo Swanson [employer] ETCHER.[address] MAGISTRATE Work Phone: [facility] 10-27-2022 09:03-0400 Systolic blood pressure 119 mm[Hg] Jimbo Swanson [employer] ETCHER.[address] MAGISTRATE Work Phone: [facility] 08-29-2022 09:26-0400 Body height 162.6 cm Rachelle Schulte APRN.DIE PRESSER Work Phone: [facility] 08-29-2022 09:26-0400 Body weight 58.51 kg Rachelle Schulte [employer].DIE PRESSER Work Phone: [facility] 08-29-2022 09:26-0400 Diastolic blood pressure 78 mm[Hg] Rachelle Schulte [employer]CH[employer].DIE PRESSER Work Phone: [facility] 08-29-2022 09:26-0400 Heart rate 75 /min Rachelle Schulte [employer].DIE PRESSER Work Phone: [facility] 08-29-2022 09:26-0400 SaO2% (BldA) [Mass fraction] 98 % Rachelle Eris [employer].DIE PRESSER Work Phone: [facility] 08-29-2022 09:26-0400 Systolic blood pressure 142 mm[Hg] Rahcelle Schulte [employer].DIE PRESSER Work Phone: [facility] 07-20-2022 09:28-0400 Body weight 58.06 kg Florence Collins MD Work Phone: [facility] 07-20-2022 09:28-0400 Diastolic blood pressure 72 mm[Hg] Florence Collins MD Work Phone: [facility] 07-20-2022 09:28-0400 Heart rate 50 /min Florence Collins MD Work Phone: [facility] 07-20-2022 09:28-0400 Respiratory rate 17 /min Florence Collins MD Work Phone: [facility] 07-20-2022 09:28-0400 SaO2% (BldA) [Mass fraction] 100 % Florence Collins MD Work Phone: [facility] 07-20-2022 09:28-0400 Systolic blood pressure 122 mm[Hg] Florence Collins MD Work Phone: [facility] 03-13-2022 10:130500 Body temperature 96.69 [degF] Claudine Durán MD Work Phone: [facility] 03-13-2022 10:130500 Body weight 59.56 kg Claudine Durán MD Work Phone: [facility] 03-13-2022 10:130500 Diastolic blood pressure 68 mm[Hg] Claudine Durán MD Work Phone: [facility] 03-13-2022 10:13-0500 Heart rate 75 /min Claudine Durán MD Work Phone: [facility] 03-13-2022 10:13-0500 Respiratory rate 18 /min Claudine Durán MD Work Phone: [facility] 03-13-2022 10:13-0500 SaO2% (BldA) [Mass fraction] 100 % Claudine Durán MD Work Phone: [facility] 03-13-2022 10:13-0500 Systolic blood pressure 112 mm[Hg] Claudine Durán MD Work Phone: [facility] 11-29-2021 10:07-0400 Body weight 58.51 kg Florence Collins MD Work Phone: [facility] 11-29-2021 10:07-0400 Diastolic blood pressure 76 mm[Hg] Florence Collins MD Work Phone: [facility] 11-29-2021 10:07-0400 Heart rate 92 /min Florence Collins MD Work Phone: [facility] 11-29-2021 10:07-0400 Respiratory rate 18 /min Florence Collins MD Work Phone: [facility] 11-29-2021 10:07-0400 SaO2% (BldA) [Mass fraction] 97 % Florence Collins MD Work Phone: [facility] 11-29-2021 10:07-0400 Systolic blood pressure 122 mm[Hg] Florence Collins MD Work Phone: [facility] 11-10-2021 09:22-0400 Body weight 60.33 kg Jimbo Swanson [employer]CH[employer].[address] MAGISTRATE Work Phone: [facility] 11-10-2021 09:22-0400 Diastolic blood pressure 80 mm[Hg] Jimbo Swanson [employer]CHER.[address] MAGISTRATE Work Phone: [facility] 11-10-2021 09:22-0400 Heart rate 76 /min Jimbo Swanson [employer]CH[employer].[address] MAGISTRATE Work Phone: [facility] 11-10-2021 09:22-0400 Respiratory rate 16 /min Jimbo Swanson [employer] ETCHER.[address] MAGISTRATE Work Phone: [facility] 11-10-2021 09:22-0400 Systolic blood pressure 152 mm[Hg] Jimbo Swanson [employer] ETCHER.[address] MAGISTRATE Work Phone: [facility] 09-20-2021 13:45-0400 Body weight 58.51 kg Jimbo Swanson [employer] ETCH[employer].[address] MAGISTRATE Work Phone: [facility] 09-20-2021 13:45-0400 Diastolic blood pressure 64 mm[Hg] Jimbo Swanson [employer] ETCHER.[address] MAGISTRATE Work Phone: [facility] 09-20-2021 13:45-0400 Heart rate 85 /min Jimbo Swanson [employer]CH[employer].[address] MAGISTRATE Work Phone: [facility] 09-20-2021 13:45-0400 SaO2% (BldA) [Mass fraction] 96 % Jimbo Swanson [employer]CH[employer].[address] MAGISTRATE Work Phone: [facility] 09-20-2021 13:45-0400 Systolic blood pressure 128 mm[Hg] Jimbo Swanson [employer] ETCHER.[address] MAGISTRATE Work Phone: [facility] 08-12-2021 11:01-0400 Body height 162.6 cm William Messina DO Work Phone: [facility] 08-12-2021 11:01-0400 Body weight 59.42 kg Williamradhika Messina DO Work Phone: [facility] 08-12-2021 11:01-0400 Diastolic blood pressure 74 mm[Hg] William Messina DO Work Phone: [facility] 08-12-2021 11:01-0400 Heart rate 72 /min William Messina DO Work Phone: [facility] 08-12-2021 11:01-0400 SaO2% (BldA) [Mass fraction] 99 % Williamradhika Messina DO Work Phone: [facility] 08-12-2021 11:01-0400 Systolic blood pressure 130 mm[Hg] William Siddharth DO Work Phone: [facility] 07-11-2021 08:10-0400 Body weight 58.06 kg Claudine Durán MD Work Phone: [facility] 07-11-2021 08:10-0400 Diastolic blood pressure 74 mm[Hg] Claudine Durán MD Work Phone: [facility] 07-11-2021 08:10-0400 Heart rate 76 /min Claudine Durán MD Work Phone: [facility] 07-11-2021 08:10-0400 Systolic blood pressure 122 mm[Hg] Claudine Durán MD Work Phone: [facility] 2021 14:57-0400 Body height 162.6 cm Mirian Andujar MD Work Phone: [facility] 2021 14:57-0400 Body weight 58.33 kg Mirian Andujar MD Work Phone: [facility] 2021 14:57-0400 Diastolic blood pressure 67 mm[Hg] Mirian Andujar MD Work Phone: [facility] 2021 14:57-0400 Heart rate 98 /min Mirian Andujar MD Work Phone: [facility] 2021 14:57-0400 Respiratory rate 14 /min Mirian Andujar MD Work Phone: [facility] 2021 14:57-0400 SaO2% (BldA) [Mass fraction] 99 % Mirian Andujar MD Work Phone: [facility] 2021 14:57-0400 Systolic blood pressure 144 mm[Hg] Mirian nAdujar MD Work Phone: [facility] 03-14-2021 08:08-0500 Body height 162.6 cm Claudine Durán MD Work Phone: [facility] 03-14-2021 08:08-0500 Body temperature 97.5 [degF] Claudine Durán MD Work Phone: [facility] 03-14-2021 08:08-0500 Body weight 58.06 kg Claudine Durán MD Work Phone: [facility] 03-14-2021 08:08-0500 Diastolic blood pressure 62 mm[Hg] Claudine Durán MD Work Phone: [facility] 03-14-2021 08:08-0500 Heart rate 87 /min Claudine Durán MD Work Phone: [facility] 03-14-2021 08:08-0500 Respiratory rate 14 /min Claudine Durán MD Work Phone: [facility] 03-14-2021 08:08-0500 SaO2% (BldA) [Mass fraction] 99 % Claudine Durán MD Work Phone: [facility] 03-14-2021 08:08-0500 Systolic blood pressure 118 mm[Hg] Claudine Durán MD Work Phone: [facility] Encounters Encounter Date Encounter Type Care Provider Facility Start: 10-24-2024 End: 10-24-2024 Office outpatient visit 25 minutes Claudine Durán MD Work Phone: [facility] Comment on above: Herpes zoster withou t complication (Primary Dx); Skin tear of left upper arm without complication, initial encounter; Contusion of right thumb without damage to nail, subsequent encounter; Chronic anticoagulation; Closed fracture of left wrist, sequela; Contusion of right upper extremity, subsequent encounter Start: 10-24-2024 End: 10-24-2024 ambulatory CLAUDINE DURÁN Facility:[facility] Start: 10-23-2024 End: 10-24-2024 Telephone encounter Claudine Durán MD Work Phone: [facility] Comment on above: Orders Start: 10-19-2024 End: 10-19-2024 Telephone encounter Russ Velasquez DO Work Phone: [facility] Start: 10-19-2024 End: 10-19-2024 Dr. Claudine Durán MD Work Phone: -Emergency Department Work Phone: Start: 10-19-2024 End: 10-19-2024 Emergency department patient visit Dr. Claudine Durán MD Work Phone: -Emergency Department Start: 10-16-2024 End: 10-16-2024 Telephone encounter Jimbo Swanson APRN.CNS Work Phone: [facility] [place] Comment on above: home health calling Start: 10-16-2024 ambulatory Zaynab elmore OLS Facility:[facility] Start: 10-16-2024 Zaynab Roque Start: 10-14-2024 End: 10-14-[address] Claudine Durán MD Work Phone: -[facility] Start: 10-14-2024 End: 10-14-2024 Fadia CORRIGAN -[facility] Work Phone: Start: 10-13-2024 ambulatory Zaynab elmore OLS Facility:[facility] Start: 10-13-2024 Zaynab Garcia L - Mya Start: 10-09-2024 ambulatory Efelmerongjoesph elmore OLS Facility:[facility] Start: 10-09-2024 Zaynab Rees - Mya Start: 10-07-2024 ambulatory Efelmerongbe Santana elmore OLS Facility:[facility] Start: 10-07-2024 Zaynab RIBEIRO L Jose Roque Start: 10-06-2024 ambulatory Efelmerongjoesph elmore OLS Facility:[facility] Start: 10-06-2024 Zaynab RIBEIRO L - [place] Start: 10-02-2024 ambulatory Efewongjoesph elmore OLS Facility:[facility] Start: 10-02-2024 Registered Referred Zaynab RIBEIROL Jose Roque Start: 10-02-2024 Zaynab RIBEIRO L Jose Roque Start: 09-30-2024 End: 09-30-[address] Claudine Durán MD Work Phone: [phone] [place] [address] Start: 09-30-2024 End: 09-30-2024 Dr. Zaynab Pina MD -[facility] Work Phone: Start: 09-29-2024 ambulatory Zaynab elmore OLS Facility:[facility] Start: 09-29-2024 [facility]: [facility] Start: 09-29-2024 ambulatory Claudine Adam Tariqlayne Facilit y:[facility] Start: 09-25-2024 ambulatory Zaynab elmore OLS Facility:[facility] Start: 09-25-2024 Registered Referred Zaynab GarciaCabrera Roque Start: 09-25-2024 Zaynab Garcia Cabrera Roque Start: 09-22-2024 ambulatory Zaynab elmore OLS Facility:[facility] Start: 09-22-2024 Registered Referred Zaynab GarciaCabrera Roque Start: 09-22-2024 Zaynab Garcia Cabrera Roque Start: 09-18-2024 ambulatory Christineelmershala elmore OLS Facility:[facility] Start: 09-18-2024 Registered Referred Zaynab GarciaCabrera Roque Start: 09-18-2024 Zaynab Garcia Cabrera Roque Start: 09-15-2024 ambulatory Christineelmertanjoesph Santana elmore OLS Facility:[facility] Start: 09-15-2024 Registered Referred Zaynab GarciaCabrera Roque Start: 09-15-2024 Zaynab Garcia Cabrera Roque Start: 09-11-2024 ambulatory Christineamilcar Cherryfeliberto elmore OLS Facility:[facility] Start: 09-11-2024 Registered Referred Zaynab GarciaCabrera Roque Start: 09-11-2024 Zaynab Garcia Cabrera Roque Start: 09-08-2024 ambulatory Zaynab elmore OLS Facility:[facility] Start: 09-08-2024 Registered Referred Zaynab Roque Start: 09-08-2024 Zaynab Roque Start: 09-04-2024 ambulatory Zaynab elmore OLS Facility:[facility] Start: 09-04-2024 Registered Referred Zaynab Roque Start: 09-04-2024 Zaynab Roque Start: 09-02-2024 End: 09-02-[address] Claudine Durán MD Work Phone: [facility] Start: 09-02-2024 End: 09-02-[address] Zaynab Pina MD -[facility] Work Phone: Start: 09-02-2024 End: 09-02-2024 Dr. Zaynab Pina MD -[facility] Work Phone: Start: 09-01-2024 ambulatory Zaynab elmore OLS Facility:[facility] Start: 09-01-2024 Registered Referred Zaynab Roque Start: 09-01-2024 Zaynab Garcia Cabrera Roque Start: 08-28-2024 End: 08-28-2024 Patient encounter procedure Fadia Pizarro [facility] Work Phone: Start: 08-28-2024 End: 08-28-[address] Claudine Durán MD Work Phone: [facility] Start: 08-28-2024 Registered Referred Zaynab Roque Start: 08-28-2024 End: 08-28-2024 Fadia Pizarro [facility] Work Phone: Start: 08-27-2024 Non-patient / [facility] Work [facility]: Start: 08-27-2024 Dr. Jasmyn piper [facility] Work Phone: Start: 08-26-2024 Non-patient / Non-visit Dr. Yaima Chan [facility] Work Phone: Start: 08-26-2024 Dr. Jasmyn piper [facility] Work Phone: Start: 08-25-2024 Non-patient / Non-visit Dr. Yaima Chan [facility] Work Phone: Start: 08-25-2024 Dr. Jasmyn piper [facility] Work Phone: Start: 08-24-2024 Non-patient / Non-visit Dr. Edouard House MD [facility] Work Phone: Start: 08-24-2024 Dr. Erasmo Worley and -[facility] Work Phone: Start: 08-23-2024 End: 08-27-2024 ambulatory Burak Vasiliy Facility:[facility] Start: 08-23-2024 End: 08-27-2024 Evaluation and management of inpatient Dr. Erasmo House MD [facility] Work Phone: Start: 08-23-2024 End: 08-27-[address] Claudine Durán MD Work Phone: [facility] Start: 08-23-2024 End: 08-27-2024 Dr. Jasmyn Chan DO [facility] Work Phone: Start: 08-21-2024 End: 08-21-2024 Anticoagulant drug monitoring [facility] Work Phone: [facility] [place] Comment on above: Personal history of DVT (deep vein thrombosis) (Primary Dx) Start: 08-21-2024 End: 08-21-2024 ambulatory CLAUDINE DURÁN Facility:[facility] Start: 08-20-2024 End: 09-18-[address] Claudine Durán MD Work Phone: -Cardiac Rehab Work Phone: Start: 08-20-[address] Claudine Durán MD Work Phone: -Cardiac Rehab Work Phone: Start: 08-20-2024 End: 09-18-2024 Dr. Claudine Durán MD Work Phone: -Cardiac Rehab Work Phone: Start: 08-20-2024 End: 09-18-[address] Claudine Durán MD Work Phone: -Cardiac Rehab Start: 08-18-2024 End: 08-18-[address] Claudine Durán MD Work Phone: -Cardiac Rehab Comment on above: Refill Request Start: 08-18-2024 End: 08-18-[address] Claudine Durán MD Work Phone: -Cardiac Rehab Work Phone: Start: 08-18-2024 End: 08-18-2024 Dr. Claudine Durán MD Work Phone: -Cardiac Rehab Work Phone: Start: 08-06-2024 End: 08-06-2024 Anticoagulant drug monitoring [facility] Work Phone: [facility] [place] Comment on above: Personal history of DVT (deep vein thrombosis) (Primary Dx) Start: 08-06-2024 End: 08-06-2024 ambulatory CLAUDINE DURÁN Facility:[facility] Start: 07-29-2024 End: 07-29-2024 ambulatory Jane Rick RN Work Phone: [employer] Start: 07-29-2024 End: 07-29-2024 Coordination of care plan Jane Rick RN Work Phone: [employer] Comment on above: Care Coordination (José Miguel gaston review and outreach for CHF GDMT Care Path/) Start: 07-23-2024 End: 07-23-2024 ambulatory Brissa Chester SYNDEY Work Phone: Cardiology Comment on above: ECHO and LAB RESULTS Start: 07-23-2024 End: 07-23-2024 E-mail encounter from caregiver Brissa Chester APRLONI Work Phone: Cardiology Start: 07-22-2024 End: 07-22-2024 ambulatory CLAUDINE DURÁN Facility:[facility] Start: 07-22-2024 End: 07-22-2024 Patient encounter procedure Brissa Chester CONNIE.SANTY Work Phone: Cardiology Comment on above: S/P TAVR (transcathe ter aortic valve replacement) (Primary Dx); Nonrheumatic aortic valve stenosis; Nonrheumatic mitral valve stenosis; Nonrheumatic tricuspid valve regurgitation; Essential hypertension; Disseminated histoplasmosis; History of recurrent deep vein thrombosis (DVT); History of GI bleed; History of COPD Start: 07-22-2024 End: 07-22-2024 ambulatory CLAUDINE DURÁN Facility:[facility] Start: 07-21-2024 End: 07-21-2024 Anticoagulant drug monitoring [facility] Work Phone: [facility] [place] Comment on above: Personal history of DVT (deep vein thrombosis) (Primary Dx) Start: 07-21-2024 End: 07-21-2024 ambulatory CLAUDINE DURÁN Facility:[facility] Start: 07-18-2024 End: 07-19-[address] Claudine Durán MD Work Phone: [facility] Work Phone: Start: 07-18-2024 End: 07-19-[address] Claudine Durán MD Work Phone: -Cardiac Rehab Work Phone: Start: 07-18-2024 End: 07-19-2024 Dr. Claudine Durán MD Work Phone: -Cardiac Rehab Work Phone: Start: 07-08-2024 End: 07-08-2024 ambulatory CLAUDINE Adam MARINELLIAMPLAYNE Facility:[facility] Start: 07-07-2024 End: 07-08-2024 [facility] [place] Comment on above: Personal history of DVT (deep vein thrombosis) (Primary Dx) Refill Request Start: 07-07-2024 End: 07-07-2024 ambulatory CLAUDINE Adam DURÁN Facility:[facility] Start: 07-02-2024 End: 07-02-2024 Refill Jimbo Swanson APRN.CNS Work Phone: Internal Medicine [place] Comment on above: Refill Request Start: 06-25-2024 End: 06-25-2024 ambulatory Pili Benitez RN [employer] Comment on above: Bi-Weekly Outreach ( Recurring) for Chronic Disease Management Start: 06-21-2024 End: 06-21-2024 Refill Claudine Durán MD Work Phone: Internal Medicine [place] Comment on above: Refill Request Start: 06-20-2024 End: 06-20-[address] Diaz Puckett MD -[facility] Work Phone: Start: 06-20-2024 End: 06-23-2024 Refill Florence Collins MD Work Phone: Pulmonary Medicine Comment on above: Refill Request Start: 06-18-2024 End: 06-18-2024 ambulatory Claudine Durán Facility:[facility] Start: 06-18-2024 End: 06-18-[address] Claudine Durán MD Work Phone: -Cardiac Rehab Work Phone: Start: 06-16-2024 End: 06-16-2024 ambulatory GENO HART Facility:[facility] Start: 06-11-2024 End: 06-11-2024 ambulatory CLAUDINE Adam DURÁN Facility:[facility] Start: [address] Claudine Durán MD Work Phone: -Cardiac Rehab Work Phone: Start: 05-28-2024 End: 05-28-[address] Claudine Durán MD Work Phone: [facility] Work Phone: Start: 05-28-2024 End: 05-28-[address] Claudine Durán MD Work Phone: -Cardiac Rehab Work Phone: Start: 05-28-2024 End: 05-28-2024 ambulatory Claudine Durán Facility:[facility] Start: 05-26-2024 End: 05-26-2024 Patient Outreach Pili Benitez RN [employer] Comment on above: Transition Of Care W romelkly phone contact (Recurring) for Transitional Care Management Start: 05-21-2024 End: 05-22-2024 Telephone encounter Jimbo Swanson APRN.[address] MAGISTRATE Work Phone: Internal Medicine [place] Comment on above: Consult Start: 05-20-2024 End: 05-20-2024 Patient encounter procedure Jimbo Swanson APRN.[address] MAGISTRATE Work Phone: Internal Medicine [place] Comment on above: Medicare annual well ness visit, subsequent (Primary Dx); Cough due to bronchospasm; Rheumatoid arthritis involving multiple sites with positive rheumatoid factor (HCC); Low back pain with right-sided sciatica, unspecified back pain laterality, unspecified chronicity; Chronic heart failure with preserved ejection fraction (HFpEF) ([facility]); Nonrheumatic aortic valve stenosis; S/P TAVR (transcatheter aortic valve replacement) Start: 05-20-2024 End: 05-20-2024 ambulatory JIMBO SWANSON [facility] [facility] Start: 05-20-2024 End: 05-20-2024 Anticoagulant drug monitoring [facility] Work Phone: [facility] [place] Comment on above: Personal history of DVT (deep vein thrombosis) (Primary Dx) Start: 05-19-2024 End: 05-19-2024 Patient Outreach Pili Benitez RN Infrastructure Tech Management Comment on above: Transition Of Care W eekly phone contact (Recurring) for Transitional Care Management, Started Bi-Weekly Outreach (Recurring) for Chronic Disease Management Start: 05-12-2024 End: 05-12-2024 Patient Outreach Pili Benitez RN Infrastructure Tech Management Comment on above: Transition Of Care W eekly phone contact (Recurring) for Transitional Care Management Start: 05-09-2024 End: 05-12-2024 Follow-up encounter Jimbo Swanson [employer] STRIP[employer] ETCHER.[address] MAGISTRATE Work Phone: Internal Medicine [place] Comment on above: Anticoagulation Start: 05-09-2024 End: 05-09-2024 ambulatory JIMBO SWANSON Facility:[facility] Start: 05-05-2024 End: 05-05-2024 Patient Outreach Pili Benitez RN Infrastructure Tech Management Comment on above: Transition Of Care [...] Evaluation and management of inpatient JUVENCIO SAEED Facility:[facility] Start: 05-01-2024 End: 05-01-2024 ambulatory CLAUDINE DURÁN Facility:[facility] Start: 05-01-2024 End: 05-01-2024 Anticoagulant drug monitoring [facility] Work Phone: [facility] [place] Comment on above: Personal history of DVT (deep vein thrombosis) (Primary Dx) Start: 04-30-2024 End: 04-30-2024 Admission to same day surgery center Anesthesia Clearance Work Phone: [facility] Work Phone: Start: 04-30-2024 End: 04-30-2024 ambulatory [facility] Facility:[facility] Start: 04-30-2024 End: 04-30-2024 Patient encounter procedure Anesthesia Clearance Work Phone: Cardiothoracic Comment on above: Encounter for preope rative anesthesiology assessment for cardiac surgery (Primary Dx) Nonrheumatic aortic valve stenosis (Primary Dx) Start: 04-30-2024 End: 04-30-2024 Subsequent hospital visit by physician Xr Chest Main J1 Work Phone: Radiology Comment on above: Nonrheumatic aortic valve stenosis [I35.0] Start: 04-30-2024 End: 04-30-2024 ambulatory LEANDRA VENEGAS Facility:[facility] Start: 04-21-2024 End: 04-21-2024 ambulatory GENO HART Facility:[facility] Start: 04-21-2024 End: 04-21-2024 Patient encounter procedure Geno Hart MD Work Phone: [facility] [place] [facility]ious [facility] Comment on above: Disseminated histopl asmosis (Primary Dx); Bronchiectasis without complication (HCC); COPD without exacerbation (HCC); Rheumatoid arthritis with positive rheumatoid factor, involving unspecified site (HCC); History of immunosuppressive therapy; History of penicillin allergy; Encounter for long-term (current) use of antibiotics; Counseling, unspecified Start: 04-16-2024 End: 04-16-2024 ambulatory Leandra Venegas [employer]IP[employer] ETCHER.[address] MAGISTRATE Work Phone: Cardiology Comment on above: Structural Dental Cl earance Start: 04-15-2024 End: 04-15-2024 ambulatory Leandra Venegas [employer] ETCHER.[address] MAGISTRATE Work Phone: Cardiology Start: 04-15-2024 End: 04-15-2024 Telephone encounter Soni Held [employer] ETCHER.[address] MAGISTRATE Work Phone: Cardiology Comment on above: Appointment (TAVR sc heduling) Start: 04-14-2024 End: 04-14-2024 ambulatory Pili Benitez RN Infrastructure Tech Management Comment on above: Initial enrollment o isabel for Chronic Disease Management Start: 04-05-2024 End: 04-05-2024 ambulatory Juvencio Saeed MD Work Phone: Cardiology Start: 04-03-2024 End: 04-03-2024 ambulatory CLAUDINE DURÁN Facility:[facility] Start: 04-03-2024 End: 04-03-2024 [facility] [place] Comment [...] ion Start: 03-31-2024 End: 03-31-2024 ambulatory Yuparish oTrres MA [facility] Comment on above: TAVR Meeting Start: 03-31-2024 End: 03-31-2024 E-mail encounter from caregiver Yu Brian DELGADO [facility] Start: 03-31-2024 End: 03-31-2024 Patient encounter procedure Yu Brian DELGADO [facility] Comment on above: [facility] Health Na vigation Outreach ([employer] High Risk - Attempt 3) Start: 03-26-2024 End: 03-26-2024 ambulatory Yu Torres MA [facility] Start: 03-26-2024 End: 03-26-2024 Patient encounter procedure Yu Torres MA [facility] Comment on above: Population Health Na vigation [...] End: 03-25-2024 Subsequent hospital visit by physician [facility] Start: 03-24-2024 End: 03-25-2024 ambulatory MICHAEL BEAVERS Facility:[facility] Start: 03-23-2024 End: 03-23-2024 Telephone encounter Michael Beavers MD Work Phone: Cardiology Comment on above: Patient Education Start: 03-21-2024 Encounter for preprocedural cardiovascular examination CLAUDINE DURÁN [facility] Start: 03-21-2024 End: 03-21-2024 Subsequent hospital visit by physician Xr Chest Main J1 Work Phone: Radiology Comment on above: Nonrheumatic aortic valve stenosis [I35.0] Start: 03-21-2024 End: 03-21-2024 ambulatory Yu Torres MA [facility] [place] Start: 03-21-2024 End: 03-21-2024 Patient encounter procedure [...] encounter status Juvencio Saeed MD Work Phone: [facility] Start: 02-29-2024 End: 02-29-2024 Office outpatient visit 15 minutes Claudine Durán MD Work Phone: Internal Medicine [place] Comment on above: Chronic heart failur e with preserved ejection fraction (HFpEF) (HCC) (Primary Dx); Rheumatoid arthritis with positive rheumatoid factor, involving unspecified site (HCC); COPD without exacerbation (HCC); Bronchiectasis without complication (HCC); Nonrheumatic aortic valve stenosis; Screening for depression; Encounter for screening examination for other mental health and behavioral disorders Start: 02-29-2024 End: 02-29-2024 Anticoagulant drug monitoring [facility] Work Phone: [facility] [place] Comment on above: Personal history of DVT (deep vein thrombosis) (Primary Dx) Start: 02-29-2024 End: 02-29-2024 [facility] Start: 02-20-2024 End: 02-21-2024 Refill Geno Hart MD Work Phone: [facility] [place] [facility] Infectious Disease Comment on above: Refill Request Start: 01-31-2024 End: 01-31-2024 ambulatory CLAUDINE Adam [facility] Facility:[facility] Start: 01-31-2024 End: 01-31-2024 Anticoagulant drug monitoring [facility] Work Phone: [facility] [place] Comment on above: Personal history of DVT (deep vein thrombosis) (Primary Dx) Start: 01-29-2024 End: 01-29-2024 ambulatory Ilda Miller RN Work Phone: Infrastructure Tech Management Comment on above: Community Monitoring Outreach (2nd attempt Telephonic Outreach [facility] Home Monitoring) Start: 01-21-2024 End: 01-21-2024 ambulatory Ilda Miller RN Work Phone: Infrastructure [employer] Management Comment on above: Community Monitoring Outreach (Telephonic Outreach [facility] Home Monitoring) Start: 01-18-2024 End: 01-18-2024 ambulatory BIBI Maria E ALEGRIA Facility:[facility] Start: 01-10-2024 End: 01-10-2024 ambulatory CLAUDINE [facility] Facility[facility] Start: 01-10-2024 End: 01-10-2024 Anticoagulant drug monitoring [facility] Work Phone: [facility] [place] Comment on above: Personal history of DVT (deep vein thrombosis) (Primary Dx) Start: 01-08-2024 End: 01-08-2024 ambulatory Monica Aguila APRN.DIE PRESSER Work Phone: Cardiology Start: 01-08-2024 End: 01-08-2024 Patient encounter procedure Monica Aguila [employer]CH[employer].DIE PRESSER Work Phone: Cardiology Comment on above: TAVR Consult Start: 01-08-2024 End: 01-08-2024 Patient encounter status Monica NewmanJoseMarshall [employer] ETCHER.DIE PRESSER Work Phone: [facility] Start: 01-04-2024 End: 01-04-2024 Telephone encounter Geno Hart MD Work Phone: [employer] Comment on above: Results Start: 01-02-2024 End: 01-02-2024 Patient encounter procedure Lili Roche MD Work Phone: Cardiology Comment on above: Rheumatoid arthritis with positive rheumatoid factor, involving unspecified site (HCC) (Primary Dx); Nonrheumatic aortic valve stenosis; Nonrheumatic mitral valve stenosis; Pericardial effusion; Histoplasmosis Start: 01-02-2024 End: 01-02-2024 ambulatory LILI ROCHE Facility:[facility] Start: 12-27-2023 End: 12-27-2023 ambulatory CLAUDINE DURÁN Facility:[facility] Start: 12-27-2023 End: 12-27-2023 Anticoagulant drug monitoring [facility] Work Phone: [facility] [place] Comment on above: Personal history of DVT (deep vein thrombosis) (Primary Dx) Start: 12-20-2023 End: 12-20-2023 ambulatory Rosa Wallace RN Work Phone: Infrastructure [employer] Management Comment on above: community monitoring outreach (engagement) Start: 12-19-2023 End: 12-20-2023 Telephone encounter Claudine Durán MD Work Phone: [facility] [place] Start: 12-19-2023 End: 12-19-2023 ambulatory Rosa Wallace RN Work Phone: Infrastructure [employer] Management Comment on above: community monitoring outreach (engagement) Start: 12-18-2023 End: 12-18-2023 ambulatory GNEO HART Facility:[facility] Start: 12-18-2023 End: 12-18-2023 Patient encounter procedure Geno Hart MD Work Phone: [facility] [place] [facility] Comment on above: Disseminated histopl asmosis (Primary Dx); Bronchiectasis without complication (HCC); COPD without exacerbation (HCC); Rheumatoid arthritis with positive rheumatoid factor, involving unspecified site (HCC); History of immunosuppressive therapy; History of penicillin allergy; Encounter for long-term (current) use of antibiotics; Counseling, unspecified; Disseminated histoplasmosis Start: 12-13-2023 End: 12-13-2023 ambulatory [facility] Start: 12-13-2023 End: 12-13-2023 Anticoagulant drug monitoring [facility] Work Phone: [facility] [place] Comment on above: Personal history of DVT (deep vein thrombosis) (Primary Dx) Start: 12-11-2023 End: 12-12-2023 Refill Twyla Cuevas APRN.CNP Work Phone: [facility] [place] Comment on above: Refill Request Start: 12-09-2023 End: 12-11-2023 Refill Claudine Durán MD Work Phone: [facility] [place] Comment on above: Refill Request Start: 11-29-2023 End: 11-29-2023 ambulatory [facility] Adam [facility] Facility:[facility] Start: 11-29-2023 End: 11-29-2023 Anticoagulant drug monitoring [facility] Work Phone: [facility] [place] Comment on above: Personal history of DVT (deep vein thrombosis) (Primary Dx) Start: 11-26-2023 End: 11-26-2023 Telephone encounter Geno Hart MD Work Phone: [facility] [place] [facility] Comment on above: Patient Question Start: 11-15-2023 End: 11-15-2023 Telephone encounter Claudine Durán MD Work Phone: [facility] [place] Comment on above: Orders (poc protime) Start: 11-15-2023 End: 11-15-2023 [facility] Adam [facility] Facility:[facility] Start: 11-15-2023 End: 11-15-2023 Anticoagulant drug monitoring [facility] Work Phone: [facility] [place] Comment on above: Personal history of DVT (deep vein thrombosis) (Primary Dx) Start: 11-08-2023 End: 11-08-2023 ambulatory CLAUDINE TARIQLAYNE Facility:[facility] Start: 11-08-2023 End: 11-08-2023 [facility] Work Phone: [facility] [place] Comment on above: Personal history of DVT (deep vein thrombosis) (Primary Dx) Start: 11-03-2023 End: 11-06-2023 Refill Jimbo Swanson APRN.MUNICIP[address] MAGISTRATE Work Phone: [facility] [place] Comment on above: Refill Request Start: 11-02-2023 End: 11-02-2023 E-mail encounter from caregiver Bibi Alegria APRN.DIE PRESSER Work Phone: Cardiology Start: 11-02-2023 End: 11-02-2023 Follow-up encounter Bibi Alegria APRN.DIE PRESSER Work Phone: Cardiology Comment on above: Valve Follow Up Start: 10-30-2023 End: 10-30-2023 Telephone encounter William Aguilar Siddharth GAYLE Work Phone: Cardiology Comment on above: Forms Start: 10-25-2023 End: 10-25-2023 [facility] Work Phone: [facility] [place] Comment on above: Personal history of DVT (deep vein thrombosis) (Primary Dx) Start: 10-20-2023 End: 10-25-2023 Refill Jimbo Swanson APRN.MUNICIP[address] MAGISTRATE Work Phone: [facility] [place] Comment on above: Refill Request Start: 10-19-2023 End: 10-19-2023 Anticoagulant drug monitoring [facility] Work Phone: [facility] [place] Comment on above: Personal history of DVT (deep vein thrombosis) (Primary Dx) Start: 10-18-2023 End: 10-18-2023 Patient encounter procedure Bibi Alegria APRN.DIE PRESSER Work Phone: Cardiology Comment on above: Aortic stenosis with bicuspid valve (Primary Dx); Pericardial effusion; Essential hypertension; Chronic heart failure with preserved ejection fraction (HFpEF) ([facility]); Mitral valve stenosis, non-rheumatic; Nonrheumatic tricuspid valve regurgitation Start: 10-17-2023 End: 10-17-2023 ambulatory Ilda Miller RN Work Phone: Infrastructure [employer] Comment on above: Community Monitoring Outreach (F/U engagement [facility] Home Monitoring) Start: 10-11-2023 End: 10-11-2023 Office outpatient visit 25 minutes Jimbo Swanson APRN.CNS Work Phone: [facility] [place] Comment on above: Aortic valve stenosi s, etiology of cardiac valve disease unspecified (Primary Dx); Mitral valve stenosis, unspecified etiology; Pericardial effusion; Gastrointestinal hemorrhage, unspecified gastrointestinal hemorrhage type; Rheumatoid arthritis with positive rheumatoid factor, involving unspecified site ([facility]); Edema, unspecified type; Blood loss anemia Start: 09-27-2023 End: 09-27-2023 Anticoagulant drug monitoring [facility] Work Phone: [facility] [place] Comment on above: Personal history of DVT (deep vein thrombosis) (Primary Dx) Refill Request Start: 09-27-2023 Refill Twyla Cuevas APRN.DIE PRESSER Work Phone: [facility] [place] Comment on above: Med Change Request Start: 09-21-2023 End: 09-21-2023 Anticoagulant drug monitoring [facility] Work Phone: [facility] [place] Comment on above: Personal history of DVT (deep vein thrombosis) (Primary Dx) Start: 09-04-2023 Telephone encounter Twyla de APRN.DIE PRESSER Work Phone: [facility] [place] Comment on above: Results Start: 08-31-2023 ambulatory Ilda Miller RN Work Phone: [employer] Comment on above: Community Monitoring Outreach (F/U engagement [facility] Home Monitoring) Start: 08-30-2023 End: 08-30-2023 Anticoagulant drug monitoring [facility] Work Phone: [facility] [place] Comment on above: Personal history of DVT (deep vein thrombosis) (Primary Dx) Refill Request Start: 08-30-2023 End: 08-30-2023 Subsequent hospital visit by physician [facility] (I-Stat) Work Phone: Cat Scan Comment on above: Disseminated histopl asmosis [B39.9] Start: 08-28-2023 End: 08-28-2023 Patient encounter procedure Geno Hart MD Work Phone: [facility] [place] [facility] Comment on above: [...] Essential hypertension; Pericardial effusion (noninflammatory); Leg edema; 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 Start: 08-27-2023 End: 08-27-2023 ambulatory CLAUDINE DURÁN Facility:[facility] Start: 08-24-2023 Telephone encounter William Messina DO Work Phone: Cardiology Start: 08-22-2023 End: 08-22-2023 Office outpatient visit 25 minutes Claudine Durán MD Work Phone: [facility] [place] Comment on above: Anemia, unspecified type (Primary Dx); Bilateral lower extremity edema; Chronic anticoagulation; Moderate to severe aortic stenosis; Disseminated histoplasmosis; Nodule of lower lobe of left lung; Encounter for long-term current use of medication Start: 08-22-2023 End: 08-22-2023 Anticoagulant drug monitoring An[facility] Work Phone: [facility] [place] Comment on above: Personal history of DVT (deep vein thrombosis) (Primary Dx) Start: 08-09-2023 End: 08-09-2023 [facility] Work Phone: [facility] [place] Comment on above: Personal history of DVT (deep vein thrombosis) (Primary Dx) Start: 08-08-2023 End: 08-08-2023 Patient encounter procedure Twyla Cuevas APRN.DIE PRESSER Work Phone: [facility] [place] Comment on above: Rheumatoid arthritis involving multiple sites with positive rheumatoid factor (HCC) (Primary Dx); Edema, unspecified type; Encounter for therapeutic drug monitoring Start: 08-07-2023 Refill Claudine tavares MD Work Phone: [facility] [place] Comment on above: Refill Request Start: 07-31-2023 Refill Cluadine tavares MD Work Phone: [facility] [place] Comment on above: Refill Request Start: 07-28-2023 Refill Jimbo Swanson APRN.MUNICIP[address] MAGISTRATE Work Phone: [facility] [place] Comment on above: Refill Request Start: 07-26-2023 End: 07-26-2023 [facility] Work Phone: [facility] [place] Comment on above: 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 therapy (Primary Dx) Start: 07-20-2023 Telephone encounter Claudine valderrama MD Work Phone: [facility] [place] Comment on above: Medication Problem Start: 07-17-2023 Refill Claudine tavares MD Work Phone: [facility] [place] Comment on above: Refill Request Right knee pain, uns pecified chronicity (Primary Dx) Start: 07-12-2023 Telephone encounter Jimbo sanchez APRN.MUNIC[address] MAGISTRATE Work Phone: [facility] [place] Comment on above: Results Start: 07-12-2023 End: 07-12-2023 [facility] Work Phone: [facility] [place] Comment on above: Personal history of DVT (deep vein thrombosis) (Primary Dx) Start: 07-10-2023 End: 07-10-2023 Office outpatient visit 25 minutes Jimbo Swanson APRN.MUNIC[address] MAGISTRATE Work Phone: [facility] [place] Comment on above: Acute pain of right knee (Primary Dx); Chronic anticoagulation; Hip pain, acute, left; Pain and swelling of right lower leg Start: 07-05-2023 ambulatory Ilda Miller RN Work Phone: [employer] Comment on above: Community Monitoring Outreach (F/U engagement CD Home Monitoring) Start: 07-05-2023 End: 07-05-2023 Anticoagulant drug monitoring [facility] Work Phone: [facility] [place] Comment on above: Personal history of DVT (deep vein thrombosis) (Primary Dx) Start: 07-01-2023 Refill Twyla Cuevas APRN.DIE PRESSER Work Phone: [facility] [place] Comment on above: Refill Request Start: 06-07-2023 Refill Claudine tavares MD Work Phone: [address] [place] [address] Comment on above: Refill Request Start: 06-05-2023 End: 06-05-2023 Office outpatient visit 40 minutes Claudine Durán MD Work Phone: [facility] [place] Comment on above: Anemia, unspecified type (Primary Dx); Elevated LFTs; COPD without exacerbation (HCC); Essential hypertension; Cough due to bronchospasm; Chronic anticoagulation; Encounter for long-term current use of medication; Gastric ulcer with hemorrhage, unspecified chronicity Start: 05-31-2023 End: 05-31-[address] Claudine Durán Work Phone: [facility] Work Phone: Start: 05-31-2023 End: 05-31-2023 Dr. Claudine Durán Work Phone: [facility] Start: 05-29-2023 End: 05-29-[address] Claudine Durán Work Phone: [facility] Work Phone: Start: 05-29-2023 End: 05-29-2023 Dr. Claudine Durán Work Phone: [facility] Start: 05-28-2023 End: 05-28-[address] Claudine Durán Work Phone: [facility] Work Phone: Start: 05-28-2023 End: 05-28-2023 Dr. Claudine Durán Work Phone: [facility] Start: 05-24-2023 End: 05-24-[address] Claudine Durán Work Phone: [facility] Work Phone: Start: 05-24-2023 End: 05-24-2023 Dr. Claudine Durán Work Phone: [facility] Start: 05-21-2023 End: 05-21-[address] Claudine Durán Work Phone: [facility] Work Phone: Start: 05-21-2023 End: 05-21-2023 Dr. Claudine Durán Work Phone: [facility] Start: 05-17-2023 End: 05-17-[address] Claudine Durán Work Phone: [facility] Work Phone: Start: 05-17-2023 End: 05-17-2023 Dr. Claudine Durán Work Phone: [facility] Start: 05-15-2023 End: 05-15-[address] Claudine Durán Work Phone: [facility] Work Phone: Start: 05-15-2023 End: 05-15-2023 Dr. Claudine Durán Work Phone: [facility] Start: 05-14-2023 End: 05-14-[address] Claudine Durán Work Phone: [facility] Work Phone: Start: 05-14-[address] Claudine hurt Work Phone: [facility] Start: 05-14-2023 End: 05-14-2023 Dr. Claudine Durán Work Phone: [facility] Start: 05-10-2023 End: 05-10-[address] Claudine Durán Work Phone: [facility] Work Phone: Start: 05-10-[address] Claudine hurt Work Phone: [facility] Start: 05-10-2023 End: 05-10-2023 Dr. Claudine Durán Work Phone: [facility] Start: 05-07-2023 End: 05-07-[address] Claudine Durán Work Phone: [facility] Work Phone: Start: 05-07-2023 End: 05-07-[address] Claudine Durán Work Phone: [facility] Start: 05-07-2023 End: 05-07-2023 Dr. Claudine Durán Work Phone: [facility] Start: 05-03-2023 End: 05-03-[address] Claudine Durán Work Phone: [facility] Work Phone: Start: 05-03-[address] Claudine hurt Work Phone: [facility] Start: 05-03-2023 End: 05-03-2023 Dr. Claudine Durán Work Phone: [facility] Start: 05-01-2023 End: 05-01-2023 Dr. Claudine Durán Work Phone: [facility] Work Phone: Start: 05-01-2023 End: 05-01-[address] Claudine Durán Work Phone: [facility] Work Phone: Start: 05-01-2023 End: 05-01-[address] Claudine Durán Work Phone: [facility] Start: 05-01-[address] Claudine hurt Work Phone: [facility] Start: 05-01-2023 End: 05-01-2023 Dr. Claudine Durán Work Phone: [facility] Start: 04-30-2023 Telephone encounter Claudine valderrama MD Work Phone: Internal Medicine [place] Comment on above: Clinical Update Start: 04-30-2023 End: 04-30-2023 Dr. Claudine Durán Work Phone: [facility] Work Phone: Start: 04-10-2023 Non-patient / Non-visit Dr. Sabrina Durán Work Phone: [facility] Start: 04-10-2023 Dr. Claudine avila Work Phone: [facility] Start: 04-10-2023 End: 04-10-[address] Claudine Durán Work Phone: [facility] Work Phone: Start: 04-10-2023 End: 04-10-[address] Claudine Durán Work Phone: [facility] Work Phone: Start: 04-10-2023 End: 04-10-2023 Dr. Claudine Durán [facility] Phone[facility] Work Phone: Start: 04-09-2023 Non-patient / Non-visit Dr. Sabrina Durán Work Phone: [facility] Work Phone: Start: 04-09-2023 Dr. Claudine avila Work Phone: [facility] Work Phone: Start: 04-05-2023 End: 04-30-2023 Evaluation and management of inpatient Dr. Claudine Durán Work Phone[facility] Start: 04-05-2023 End: 04-30-2023 Dr. Claudine Durán Work Phone[facility] Start: 04-05-2023 Non-patient / Non-visit Dr. Sabrina Durán Work Phone: [facility] Work Phone: Start: 04-05-2023 Dr. Claudine avila Work Phone: [facility] Work Phone: Start: 04-04-2023 Non-patient / Non-visit Dr. Sabrina Durán Work Phone: [facility] Work Phone: Start: 04-04-2023 Dr. Claudine avila Work Phone: [facility] Work Phone: Start: 04-04-2023 Non-patient / Non-visit Dr. Sabrina Durán Work Phone: [facility] Start: 04-04-2023 Dr. Claudine avila Work Phone: [facility] Start: 04-03-2023 Non-patient / Non-visit Dr. Sabrina Durán Work Phone: [facility] Start: 04-03-2023 Dr. Claudine avila Work Phone: [facility] Start: 04-02-2023 Non-patient / Non-visit Dr. Sabrina Durán Work Phone: [facility] Work Phone: Start: 04-02-2023 Dr. Claudine avila Work Phone: [facility] Work Phone: Start: 04-02-2023 Non-patient / Non-visit Dr. Sabrina Durán Work Phone: [facility] Start: 04-02-2023 Dr. Claudine avila Work Phone: [facility] Start: 04-02-2023 Non-patient / Non-visit Dr. Sabrina Durán Work Phone: [facility] Start: 04-02-2023 Dr. Claudine avila Work Phone: [facility] Start: 04-02-2023 Non-patient / Non-visit Dr. Sabrina Durán Work Phone: [facility] Start: 04-02-2023 Dr. Claudine avila Work Phone: [facility] Start: 04-01-2023 Non-patient / Non-visit Dr. Sabrina Durán [facility] Start: 04-01-2023 Dr. Claudine avila [facility] Start: 04-01-2023 Non-patient / Non-visit Dr. Sabrina Durán Work Phone: [facility] Work Phone: Start: 04-01-2023 Dr. Claudine avila Work Phone: [facility] Work Phone: Start: 03-31-2023 End: 04-05-2023 Evaluation and management of inpatient Dr. Claudine Durán Work Phone[facility] Work Phone: Start: 03-31-2023 End: 04-05-2023 Dr. Claudine Durán Work Phone: [facility] Work Phone: Start: 03-28-2023 End: 03-28-2023 Emergency department patient visit Dr. Claudine Durán Work Phone: [facility] Work Phone: Start: 03-28-2023 End: 03-28-2023 Dr. Claudine Durán Work Phone[facility] Work Phone: Start: 03-27-2023 Non-patient / Non-visit Dr. Sabrina Durán Work Phone: [facility] Work Phone: Start: 03-27-2023 Dr. Claudine avila Work Phone: [facility] [facility] Work Phone: Start: 03-27-2023 E-mail encounter fro m caregiver William Messina DO Work Phone: [facility] Start: 03-27-2023 Patient encounter procedure William Messina DO Work Phone: Cardiology Comment on above: Appointment Start: 03-26-2023 End: 03-27-2023 Evaluation and management of inpatient [facility] Work Phone: Start: 03-26-2023 observation encounter [facility] Work Phone: Start: 03-26-2023 End: 03-27-2023 Dr. Claudine Durán Work Phone: [facility] Work Phone: Start: 03-23-2023 Telephone encounter Rachelle Leonard APRN.DIE PRESSER Work Phone: [facility] PROVID[facility] ADULT Comment on above: Appointment Start: 03-19-2023 End: 03-25-2023 Evaluation and management of inpatient CLAUDINE DURÁN Facility:[facility] Start: 03-19-2023 End: 03-19-2023 Emergency department patient visit [facility] Work Phone: Start: 03-19-2023 End: 03-19-2023 Dr. Claudine Durán Work Phone: [facility] Work Phone: Start: 03-15-2023 ambulatory Claudine tavares MD Work Phone: Internal Medicine [place] Comment on above: histoplasmosis Start: 02-27-2023 Telephone encounter Claudine valderrama MD Work Phone: Internal Medicine [place] Comment on above: Results (worsening l iver enzymes) Start: 02-07-2023 End: 02-07-2023 Subsequent hospital visit by physician [facility] [place] Work Phone: Radiology Comment on above: Acute cough [R05.1] Start: 02-07-2023 End: 02-07-2023 Patient encounter procedure Adri Zaragoza PRINTED CIRCUIT BOARDS STRIPPER ETCHER.DIE PRESSER Work Phone: [place] [facility] Comment on above: Acute cough (Primary Dx) Start: 02-02-2023 End: 02-02-2023 Anticoagulant drug monitoring [facility] Work Phone: [facility] [place] Comment on above: Personal history of DVT (deep vein thrombosis) (Primary Dx) Start: 01-24-2023 Refill Teresa barboza MD Work Phone: Pulmonary Medicine Comment on above: Refill Request Start: 01-17-2023 End: 01-17-2023 Anticoagulant drug monitoring [facility] Work Phone: [facility] [place] Comment on above: Embolism and thrombo sis (HCC) (Primary Dx) Start: 01-10-2023 End: 01-10-2023 Anticoagulant drug monitoring [facility] Work Phone: [facility] [place] Comment on above: Personal history of DVT (deep vein thrombosis) (Primary Dx) Start: 01-04-2023 End: 01-04-2023 Office outpatient visit 15 minutes Jimbo Swanson APRN.MUNICIPAL COURT MAGISTRATE Work Phone: Internal Medicine [place] Comment on above: Encounter for immuni zation (Primary Dx) Start: 01-04-2023 End: 01-04-2023 Anticoagulant drug monitoring [facility] Work Phone: [facility] [place] Comment on above: Embolism and thrombo sis (HCC) (Primary Dx) Start: 12-20-2022 Refill Claudine tavares MD Work Phone: Internal Medicine [place] Comment on above: Refill Request Start: 12-14-2022 End: 12-14-2022 Anticoagulant drug monitoring [facility]: [facility] [place] Comment on above: Embolism and thrombo sis (HCC) (Primary Dx) Start: 12-07-2022 End: 12-07-2022 Anticoagulant drug monitoring [facility] Work Phone: [facility] [place] Comment on above: Embolism and thrombo sis (HCC) (Primary Dx) Start: 11-20-2022 Documentation procedure Mammog adrian Coordinator [facility] Start: 11-20-2022 Letter encounter Mammography Coordinator [facility] Department Start: 11-17-2022 End: 11-17-2022 Subsequent hospital visit by physician Screen Mammo [facility] Comment on above: Encounter for screen ing mammogram for breast cancer [Z12.31] Start: 11-09-2022 Telephone encounter Claudine valderrama MD Work Phone: [facility] [place] Comment on above: Orders (protime) Start: 11-09-2022 End: 11-09-2022 Anticoagulant drug monitoring [facility] Work Phone: [facility] [place] Comment on above: Embolism and thrombo sis (HCC) (Primary Dx) Start: 11-09-2022 End: 11-09-2022 Patient encounter procedure Ron Veras MD Work Phone: Orthopaedics Comment on above: DDD (degenerative di sc disease), lumbar (Primary Dx); Hip pain, acute, left; Age-related osteoporosis without current pathological fracture Start: 11-01-2022 Telephone encounter Claudine valderrama MD Work Phone: Internal Medicine [place] Comment on above: Medication Problem Start: 10-31-2022 ambulatory Ashly Shay RN NURSE MASTER MOTORCYCLE TECHNICIAN Comment on above: Medication Request ( Warfarin) Refill Request Start: 10-27-2022 End: 10-27-2022 Office outpatient visit 25 minutes Jimbo Swanson APRN.MUNICIP[address] MAGISTRATE Work Phone: Internal Medicine [place] Comment on [...] Start: 10-26-2022 End: 10-26-2022 [facility] Work Phone: [facility] [place] Comment on above: Personal history of DVT (deep vein thrombosis) (Primary Dx) Start: 10-12-2022 End: 10-12-2022 Anticoagulant drug monitoring [facility] Work Phone: [facility] [place] Comment on above: 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 therapy (Primary Dx) Start: 10-06-2022 Refill Jimbo Swanson PRINTED CIRCUIT BOARDS STRIPPER ETCHER.MUNICIPAL COURT MAGISTRATE Work Phone: Internal Medicine [place] Comment on above: Refill Request Start: 09-25-2022 Telephone encounter Rachelle Schulte APRN.DIE PRESSER Work Phone: Cardiology Comment on above: Results Start: 09-14-2022 Telephone encounter Claudine valderrama MD Work Phone: Internal Medicine [place] Comment on above: Anticoagulation Start: 09-07-2022 End: 09-07-2022 [facility] Work Phone: [facility] [place] Comment on above: Personal history of DVT (deep vein thrombosis) (Primary Dx) Start: 08-29-2022 End: 08-29-2022 Office outpatient visit 15 minutes Rachelle Schulte APRN.DIE PRESSER Work Phone: Cardiology Comment on above: Aortic stenosis with bicuspid valve (Primary Dx); Essential hypertension; History of recurrent deep vein thrombosis (DVT) Start: 08-15-2022 Refill [facility] Provider Pulmonary Medicine Comment on above: Refill Request Start: 08-11-2022 Telephone encounter Claudine valderrama MD Work Phone: Internal Medicine [place] Comment on above: Patient Update Start: 07-24-2022 [...] 07-20-2022 Subsequent hospital visit by physician [facility] ([facility]) Work Phone: Cat Scan Comment on above: Lung nodules [R91.8] Start: 06-29-2022 End: 06-29-2022 [facility] Work [facility]: [facility] [place] Comment on above: Personal history of DVT (deep vein thrombosis) (Primary Dx) Start: 05-31-2022 ambulatory [facility] Provider Infrastructure Tech Management Comment on above: Home Monitoring Ques tionnaire Reminder + Happy Belated Birthday! Start: 05-31-2022 E-mail encounter fro m caregiver [facility] Provider [facility] ID [employer] [place] Start: 05-23-2022 Telephone encounter Claudine valderrama MD Work Phone: Family Medicine [place] Comment on above: Clearance for surger y Start: 05-04-2022 End: 05-04-2022 [facility] [place] Comment on above: Personal history of DVT (deep vein thrombosis) (Primary Dx) Start: 04-21-2022 ambulatory [facility] Provider Infrastructure Tech Management Comment on above: Home Monitoring Prog jelani Reminder Start: 04-21-2022 E-mail encounter fro m caregiver [facility] Provider [facility] MZL [employer] Start: 04-06-2022 End: 04-06-2022 [facility] Work Phone: [facility] [place] Comment on above: Personal history of DVT (deep vein thrombosis) (Primary Dx) Start: 03-30-2022 End: 03-30-2022 [facility] [place] Comment on above: Personal history [...] both eyes Start: 02-24-2022 ambulatory [facility] Provider Infrastructure Tech Management Comment on above: [employer] Monitor ing Program Reminder Start: 02-24-2022 E-mail encounter fro m caregiver [facility] Provider IND [employer] Start: 02-17-2022 ambulatory [facility] Provider Infrastructure Tech Management Comment on above: [employer] [facility] Monitor ing Program Reminder Start: 02-17-2022 E-mail encounter fro m caregiver [facility] Provider IND [place] Start: 02-02-2022 End: 02-02-2022 Anticoagulant drug monitoring [facility] Work Phone: Coumadin [facility] Comment on above: Personal history of DVT (deep vein thrombosis) (Primary Dx) Start: 01-17-2022 ambulatory [facility] Provider Infrastructure Tech Management Comment on above: [employer] [facility] Monitor ing Program Reminder Refill Request Start: 01-17-2022 E-mail encounter fro m caregiver [facility] Provider IND [place] Start: 01-10-2022 Refill Jimbo Swanson ANNY Work Phone: Internal Medicine [place] Comment on above: Refill Request Start: 01-05-2022 End: 01-05-2022 Anticoagulant drug monitoring [facility] Work Phone: [facility] Comment on above: Personal history of DVT (deep vein thrombosis) (Primary Dx) Start: 12-31-2021 End: 12-31-2021 Subsequent hospital visit by physician Robbie [facility] [place] Work Phone: Radiology Comment on above: Hip pain, acute, lef t [M25.552] Start: 12-22-2021 End: 12-22-2021 Anticoagulant drug monitoring [facility] Work Phone: [facility] [place] Comment on above: Personal history of DVT (deep vein thrombosis) (Primary Dx) Start: 11-29-2021 ambulatory Jimbo Swanson APRN.MUNICIPAL COURT MAGISTRATE Work Phone: Internal Medicine [place] Comment on above: Blood pressure Start: 11-29-2021 [...] End: 11-10-2021 Patient encounter procedure Jimbo Swanson APRN.MUNICIPAL COURT MAGISTRATE Work Phone: Internal Medicine [place] Comment on above: Essential hypertensi on (Primary [...] encounter Claudine valderrama MD Work Phone: [facility] [place] Comment on above: Orders (protime) Start: 10-27-2021 End: 10-27-2021 [facility] Work Phone: [facility] [place] Comment on above: Personal history of DVT (deep vein thrombosis) (Primary Dx) Start: 10-18-2021 End: 10-18-2021 Patient encounter procedure Chacho Bermudezbushra Work Phone: Podiatry Comment on above: Ulcer of toe of left foot, limited to breakdown of skin (HCC) (Primary Dx); Hammer toe of left foot; Onychodystrophy Refill Request Start: 10-18-2021 End: 10-18-2021 Subsequent hospital visit by physician Robbie [facility] [place] [facility] Work Phone: Radiology Comment on above: Ulcer of toe of left foot, limited to breakdown of skin (HCC) [L97.521] Start: 10-12-2021 End: 10-12-2021 Subsequent hospital visit by physician [facility] Work Phone: Radiology Comment on above: Abnormal mammogram [ R92.8] Start: 09-29-2021 End: 09-29-2021 Anticoagulant drug monitoring [facility] Work Phone: [facility] [place] Comment on above: Personal history of DVT (deep vein thrombosis) (Primary Dx) Start: 09-20-2021 End: 09-20-2021 Patient encounter procedure Jimbo Swanson APRN.MUNICIPAL COURT MAGISTRATE Work Phone: Internal Medicine [place] Comment on above: Toe infection (Prima ry Dx); Sinobronchitis Start: 09-05-2021 Documentation procedure Mammog adrian Coordinator [facility] Start: 09-05-2021 Letter encounter Mammography Coordinator [facility] Department Start: 09-05-2021 End: 09-05-2021 Subsequent hospital visit by physician Screen Mammo [facility] Mammogram Comment on above: Encounter for screen ing mammogram for breast cancer [Z12.31] Start: 08-23-2021 End: 08-23-2021 Anticoagulant drug monitoring [facility] Work Phone: [facility] [place] Comment on above: Personal [...] Start: 07-25-2021 End: 07-25-2021 Anticoagulant drug monitoring [facility] Work Phone: [facility] [place] Comment on above: Personal history of DVT (deep vein thrombosis) (Primary Dx) Start: 07-11-2021 End: 07-11-2021 Office outpatient visit 25 minutes Claudine Durán MD Work Phone: Internal Medicine [place] Comment on above: Gastroesophageal ref lux disease without esophagitis (Primary Dx); Other viral warts; Elevated LDL cholesterol level; Essential hypertension; Need for COVID-19 vaccine; COPD without exacerbation (HCC); Bronchiectasis without complication (HCC) Start: 07-07-2021 End: 07-07-2021 Patient encounter procedure [facility] Specimen Start: 06-29-2021 ambulatory Gold Coy RN Infrastructure Tech Management Comment on above: Community Monitoring Outreach (COPD CDM Outreach) Start: 06-09-2021 End: 06-09-2021 Anticoagulant drug monitoring [facility] Work Phone: [facility] Comment on above: Embolism and thrombo sis (HCC) Start: 06-04-2021 Refill Claudine tavares MD Work Phone: Internal Medicine [place] Comment on above: Refill Request Start: 2021 End: 2021 Patient encounter procedure Mirian Andujar MD Work Phone: Pulmonary Medicine Comment on above: Moderate COPD (chron ic obstructive pulmonary disease) (HCC) (Primary Dx); Bronchiectasis without complication (HCC); Centrilobular emphysema (HCC) Start: 05-26-2021 End: 05-26-2021 Anticoagulant drug monitoring [facility] Work Phone: [facility] [place] Comment on above: Embolism and thrombo sis (HCC) Start: 05-20-2021 ambulatory Nara (Pss) [facility] [place] Comment on above: Population Health Na vigation [...] Start: 02-28-2018 Patient encounter procedure Will Hurley [facility] Start: 10-02-2014 End: 10-03-2014 Ambulatory Mykeldeshawn Santamaria [facility] Procedures Date Procedure Procedure Detail Performing Clinician Start: 10-19-2024 Calculation of international normalized ratio Dr. Claudine Durán MD Work Phone: Start: 10-19-2024 CT cervical spine without contrast Dr. Cabrera Durán MD Work Phone: Start: 10-19-2024 CT of head without contrast Dr. Claudine valderrama MD Work Phone: Start: 10-16-2024 Blood count smear mcrscp w/mnl difrntl wbc count Dr. Claudine Durán MD Work Phone: Start: 10-16-2024 Calculation of international normalized ratio Dr. Claudine Durán MD Work Phone: Start: 10-16-2024 Mean corpuscular hemoglobin concentration determination Dr. Claudine Durán MD Work Phone: Start: 10-16-2024 Nucleated red blood cell count procedure Dr. Claudine Durán MD Work Phone: Start: 10-16-2024 Platelet mean volume determination Dr. Cabrera Durán MD Work Phone: Start: 10-09-2024 Blood count smear mcrscp w/mnl difrntl wbc count Dr. Claudine Durán MD Work Phone: Start: 10-09-2024 Calculation of international normalized ratio Dr. Claudine Durán MD Work Phone: Start: 10-09-2024 Mean corpuscular hemoglobin concentration determination Dr. Claudine Durán MD Work Phone: Start: 10-09-2024 Nucleated red blood cell count procedure Dr. Claudine Durán MD Work Phone: Start: 10-09-2024 Platelet mean volume determination Dr. Cabrera Durán MD Work Phone: Start: 10-02-2024 Blood count smear mcrscp w/mnl difrntl wbc count Dr. Claudine Durán MD Work Phone: Start: 10-02-2024 Calculation of international normalized ratio Dr. Claudine Durán MD Work Phone: Start: 10-02-2024 Mean corpuscular hemoglobin concentration determination Dr. Claudine Durán MD Work Phone: Start: 10-02-2024 Nucleated red blood cell count procedure Dr. Claudine Durán MD Work Phone: Start: 10-02-2024 Platelet mean volume determination Dr. Cabrera Durán MD Work Phone: Start: 09-25-2024 Blood count smear mcrscp w/mnl difrntl wbc count Dr. Claudine Durán MD Work Phone: Start: 09-25-2024 Calculation of international normalized ratio Dr. Claudine Durán MD Work Phone: Start: 09-25-2024 Mean corpuscular hemoglobin concentration determination Dr. Claudine Durán MD Work Phone: Start: 09-25-2024 Nucleated red blood cell count procedure Dr. Claudine Durán MD Work Phone: Start: 09-25-2024 Platelet mean volume determination Dr. Cabrera Durán MD Work Phone: Start: 09-18-2024 Blood count smear mcrscp w/mnl difrntl wbc count Dr. Claudine Durán MD Work Phone: Start: 09-18-2024 Calculation of international normalized ratio Dr. Claudine Durán MD Work Phone: Start: 09-18-2024 Mean corpuscular hemoglobin concentration determination Dr. Claudine Durán MD Work Phone: Start: 09-18-2024 Nucleated red blood cell count procedure Dr. Claudine Durán MD Work Phone: Start: 09-18-2024 Platelet mean volume determination Dr. Cabrera Durán MD Work Phone: Start: 09-15-2024 Calculation of international normalized ratio Dr. Claudine Durán MD Work Phone: Start: 09-11-2024 Blood count smear mcrscp w/mnl difrntl wbc count Dr. Claudine Durán MD Work Phone: Start: 09-11-2024 Calculation of international normalized ratio Dr. Claudine Durán MD Work Phone: Start: 09-11-2024 Mean corpuscular hemoglobin concentration determination Dr. Claudine Durán MD Work Phone: Start: 09-11-2024 Nucleated red blood cell count procedure Dr. Claudine Durán MD Work Phone: Start: 09-11-2024 Platelet mean volume determination Dr. Cabrera Durán MD Work Phone: Start: 09-04-2024 Blood count smear mcrscp w/mnl difrntl wbc count Dr. Claudine Durán MD Work Phone: Start: 09-04-2024 Calculation of international normalized ratio Dr. Claudine Durán MD Work Phone: Start: 09-04-2024 Mean corpuscular hemoglobin concentration determination Dr. Claudine Durán MD Work Phone: Start: 09-04-2024 Nucleated red blood cell count procedure Dr. Claudine Durán MD Work Phone: Start: 09-04-2024 Platelet mean volume determination Dr. Cabrera Durán MD Work Phone: Start: 08-28-2024 Blood count smear mcrscp w/mnl difrntl wbc count Dr. Claudine Durán MD Work Phone: Start: 08-28-2024 Calculation of international normalized ratio Dr. Claudine Durán MD Work Phone: Start: 08-28-2024 Mean corpuscular hemoglobin concentration determination Dr. Claudine Durán MD Work Phone: Start: 08-28-2024 Nucleated red blood cell count procedure Dr. Claudine Durán MD Work Phone: Start: 08-28-2024 Platelet mean volume determination Dr. Cabrera Durán MD Work Phone: Start: 08-27-2024 Calculation of international normalized ratio Dr. Claudine Durán MD Work Phone: Start: 08-24-2024 Blood count smear mcrscp w/mnl difrntl wbc count Dr. Claudine Durán MD Work Phone: Start: 08-24-[address] Claudine Durán MD Work Phone: Start: 08-24-2024 Mean corpuscular hemoglobin concentration determination Dr. Claudine Durán MD Work Phone: Start: 08-24-2024 Nucleated red blood cell count procedure Dr. Claudine Durán MD Work Phone: Start: 08-24-2024 Platelet mean volume determination Dr. Cabrera Durán MD Work Phone: Start: 08-23-2024 CT of head without contrast Dr. Claudine valderrama MD Work Phone: Start: 08-23-[address] Claudine Durán MD Work Phone: Start: 08-23-2024 Plain x-ray of wrist Dr. Claudine Durán MD Work Phone: Start: 06-20-2024 Evaluation of diagnostic study results Dr. Claudine Durán MD Work Phone: Start: 04-30-2024 Radiologic exam chest 2 views Leandra Elmore linda [employer]IP[employer]CH[employer].[address] MAGISTRATE Work Phone: Start: 03-25-2024 Rp loclzj mary spect w/ct 1 area 1 day imaging Monica Aguila [employer].DIE PRESSER Work Phone: Start: 03-25-2024 Spmtry w/vc expiratory milton w/wo mxml vol vntj Monica Aguila [employer].DIE PRESSER Work Phone: Start: 03-21-2024 Radiologic exam chest 2 views Monica Aguila [employer]CH[employer].DIE PRESSER Work Phone: Start: 03-21-2024 Ct angiography chest w/contrast/noncontrast Monica Aguila [employer].DIE PRESSER Work Phone: Start: 03-21-2024 Ct angio abd&plvis cntrst mtrl w/wo cntrst img Monica Aguila [employer].DIE PRESSER Work Phone: Start: 03-21-2024 Creatinine [Mass/volume] in [...] A/B & RSV NAAT, ROUTINE Adri Zaragoza [employer]CH[employer].DIE PRESSER Work Phone: Start: 02-07-2023 Radiologic exam chest 2 views Adri de la rosa [employer].DIE PRESSER Work Phone: Start: 01-04-2023 PFIZER-BIONTECH COVID-19 VACCINE (2022- SEASON) AGE 12+ YR Jimbo Swanson [employer].[address]AL [employer] MAGISTRATE Work Phone: Start: 01-04-2023 Prothrombin time Jimbo Swanson [employer]AL [employer] MAGISTRATE Work Phone: Start: 11-17-2022 Screening digital [facility] [employer].MUNICIPAL [employer] MAGISTRATE Work Phone: Start: 10-27-2022 INFLUENZA VACCINE, PRSV FREE, AGE 65+ YR, HIGH DOSE, QUADRIVALENT (FLUZONE HIGH-DOSE) Jimbo Swanson [employer].[address]IC[address]AL [employer] MAGISTRATE Work Phone: Start: 08-29-2022 Ecg routine ecg w/least 12 lds i&r only [facility] Provider Start: 07-20-2022 Ct thorax w/o contrast material Meche Collins MD Work Phone: Start: 12-31-2021 Radex hip unilateral with pelvis 2-3 views Ernie Belcher [employer].DIE PRESSER Work Phone: Start: 11-10-2021 INFLUENZA SEASONAL QUADRIVALENT HIGH DOSE AGE 65+ Jimbo Swanson [employer].[address]IC[address]AL [employer] MAGISTRATE Work Phone: Start: 11-10-2021 PFIZER-BIONTECH COVID-19 BIVALENT BOOSTER VACCINE, AGE 12+ YR Jimbo Sans [employer] [employer] MAGISTRATE Work Phone: Start: 11-10-2021 Adult depression screening assessment Jimbo Swanson [employer]AL [address] MAGISTRATE Work Phone: Start: 10-18-2021 Radex foot complete minimum 3 views Shilo hew Testrake Work Phone: Start: 10-12-2021 Diagnostic mammography computer-aided detcj uni [facility] [employer]CH[employer].DIE PRESSER Work Phone: Start: 09-05-2021 End: 09-05-2021 Screening mammography bi 2-view breast inc cad [facility] [employer].DIE PRESSER Work Phone: Start: 07-11-2021 PFIZER-BIONTECH COVID-19 VACCINE, AGE 12+ YR (ARIAS TOP) Claudine Durán MD Work Phone: Start: 07-07-2021 Lipid 1996 panel - Serum or Plasma Ashly Shay RN Start: 07-13-2020 Adult depression screening assessment Nara Talavera Start: 06-01-2020 Mammography Nara Dopart Start: 03-24-2019 Colonoscopy Nara Dopa Plan of Treatment Date Care Activity Detail Author Start: 11-05-2029 Urine microalbumin profile [facility] Start: 03-24-2029 Colonoscopy COLONOSCOPY [facility] Start: 03-24-2029 COLORECTAL CANCER SCREENING COLORECTAL CANCER SCREENING [facility] Start: 03-24-2029 Screening for malignant neoplasm of colon [facility] Start: 07-23-2027 Diabetes Screening Diabetes Screening [facility] Start: 05-04-2027 Diabetes Screening Diabetes Screening [facility] Start: 05-01-2027 Diabetes Screening Diabetes Screening [facility] Start: 03-24-2027 Diabetes Screening Diabetes Screening [facility] Start: 03-21-2027 Diabetes Screening Diabetes Screening [facility] Start: 10-10-2026 Diabetes Screening Diabetes Screening [facility] Start: 08-29-2026 Diabetes Screening Diabetes Screening [facility] Start: 08-21-2026 Diabetes Screening Diabetes Screening [facility] Start: 07-07-2026 Lipid 1996 panel - Serum or Plasma Lipid Screening [facility] Start: 07-07-2026 Lipid panel Lipid Screening [facility] Start: 07-07-2026 LIPID SCREEN LIPID SCREEN [facility] Start: 06-04-2026 Diabetes Screening Diabetes Screening [facility] Start: 03-25-2026 Diabetes Screening Diabetes Screening [facility] Start: 03-22-2026 Diabetes Screening Diabetes Screening [facility] Start: 11-23-2025 End: 11-23-2025 Patient encounter procedure 11/23/2025 1:00 PM EDT Office Visit [facility] [address] [place] [address] Claudine Durán MD [address] [place] [address] Medicare Wellness [facility] Comment on above: Medicare Wellness Start: 10-24-2025 Annual PCP Team Chronic Disease Visit Annual PCP Team Chronic Disease Visit [facility] Start: 05-26-2025 End: 05-26-2025 Patient encounter procedure 05/26/2025 9:00 AM EDT Office Visit [facility] [address] [address] Jimbo Swanson, [employer] ETCHER.[address]ICIPAL COURT MAGISTRATE [address] [address] Medicare Wellness [facility] Comment on above: Medicare Wellness Start: 05-20-2025 Annual PCP Team Chronic Disease Visit Annual PCP Team Chronic Disease Visit [facility] Start: 05-20-2025 BP Controlled (<130/80) BP Controlled (<130/80) [facility] Start: 05-20-2025 zzBP Controlled (<130/80) (Retired) zzBP Controlled (<130/80) (Retired) [facility] Start: 04-30-2025 BP Controlled (<130/80) BP Controlled (<130/80) [facility] Start: 02-28-2025 Annual PCP Team Chronic Disease Visit Annual PCP Team Chronic Disease Visit [facility] Start: 02-28-2025 Anxiety Screening Anxiety Screening [facility] Start: 02-28-2025 Covid-19 Vaccine () Covid-19 Vaccine () [facility] Comment on above: Postponed from 01/17/2024 (Declined at t his time) Postponed from 05/22 (Declined at this time) Start: 02-28-2025 Covid-19 Vaccine (9 - Pfizer risk ) Covid-19 Vaccine (9 - Pfizer risk ) [facility] Comment on above: Postponed from 05/22/2024 (Declined at t his time) Start: 02-28-2025 Depression Screening Depression Screening [facility] Start: 01-01-2025 BP Controlled (<130/80) BP Controlled (<130/80) [facility] Start: 10-27-2024 End: 10-27-2024 Patient encounter procedure 10/27/2024 10:00 AM EDT Office Visit [facility] [address] [place] [address] Geno Hart MD [address] [place] [address] Return in about 6 months (around 10/22/2024). [facility] Comment on above: Return in about 6 months (around ). Start: 10-20-2024 Influenza vaccination Influenza Vaccine (#1) [facility] Start: 10-19-2024 [facility] Start: 10-17-2024 BP Controlled (<130/80) BP Controlled (<130/80) [facility] Start: 10-10-2024 BP Controlled (<130/80) BP Controlled (<130/80) [facility] Start: 10-02-2024 [facility] Start: 09-03-2024 End: 09-03-2024 Anticoagulant drug monitoring 09/03/2024 10:00 AM EDT [facility] [address] [place] [address] Wstr, Anticoag [facility] [address] [place] [id number] inr [facility] Comment on above: inr Start: 08-29-2024 Prothrombin time [facility] Start: 08-28-2024 Prothrombin time [facility] Start: 08-27-2024 BP Controlled (<130/80) BP Controlled (<130/80) [facility] Start: 08-27-2024 Patient discharge [facility] Start: 08-26-2024 BP Controlled (<130/80) BP Controlled (<130/80) [facility] Start: 08-26-2024 Care planning and problem solving actions [facility] Start: 08-26-2024 Prothrombin time [facility] Start: 08-25-2024 Care planning and problem solving actions [facility] Start: 08-25-2024 Prothrombin time [facility] Start: 08-25-2024 [facility] Start: 08-24-2024 Prothrombin time [facility] Start: 08-23-2024 Application short arm splint forearm-hand static [facility] Start: 08-23-2024 Following clinical pathway protocol [facility] Start: 08-23-2024 Ambulation without limitation [facility] Start: 08-23-2024 Assessment of risk of venous thromboembolism [facility] Start: 08-23-2024 Consultation [facility] Start: 08-23-2024 Incentive spirometry [facility] Start: 08-23-2024 Insertion of catheter into peripheral vein [facility] Start: 08-23-2024 Measuring intake and output [facility] Start: 08-23-2024 Providing care according to standard [facility] Start: 08-23-2024 Referral to occupational therapist [facility] Start: 08-23-2024 Referral to service [facility] Start: 08-23-2024 [facility] Start: 08-23-2024 Verification routine [facility] Start: 08-23-2024 Admission procedure [facility] Start: 08-23-2024 Inhalation therapy procedure [facility] Start: 08-23-2024 [facility] Start: 08-21-2024 Annual PCP Team Chronic Disease Visit Annual PCP Team Chronic Disease Visit [facility] Start: 08-21-2024 BP Controlled (<130/80) BP Controlled (<130/80) [facility] in Start: 08-21-2024 End: 08-21-2024 Anticoagulant drug monitoring 08/21/2024 10:30 AM EDT Antico[facility] [address] [place] [address] Wstr, Anticoag [facility] [address] [place] [address] inr Coumadin [facility] Comment on above: inr Start: 08-07-2024 Annual PCP Team Chronic Disease Visit Annual PCP Team Chronic Disease Visit [facility] Start: 08-06-2024 End: 08-06-2024 Anticoagulant drug monitoring 08/06/2024 10:30 AM EDT Anticoagulation Visit [facility] [address] [place] [address] Wstr, Anticoag [facility] [address] [place] [address] inr Coumadin [facility] Comment on above: inr Start: 07-22-2024 End: 07-22-2024 Patient encounter procedure Cardiology Comment on above: S/P TAVR Start: 07-22-2024 End: 07-22-2024 ambulatory [facility] J1-4 Dra mikal Rosales Comment on above: LAB S/P TAVR Start: 07-21-2024 End: 07-21-2024 Anticoagulant drug monitoring 07/21/2024 10:30 AM EDT Anticoagulation Visit [facility] [place] [address] [place] [address] Wstr, Anticoag [facility] [address] [place] [address] inr [facility] Comment on above: inr Start: 07-09-2024 BP Controlled (<130/80) BP Controlled (<130/80) [facility] in Start: 07-07-2024 End: 07-07-2024 Anticoagulant drug monitoring 07/07/2024 10:30 AM EDT Anticoagulation Visit Coumad[facility] [address] [place], [place] [address] Wstr, [facility] [address] [place] [address] inr [facility] Comment on above: inr Start: 06-16-2024 End: 09-15-2024 HISTOPLASMA AG URINE HISTOPLASMA AG URINE Lab Routine Disseminated histoplasmosis Expected: 06/16/2024, Expires: 09/15/2024 [facility] Work Phone: Comment on above: Expected: 06/16/2024, Expires: Start: 06-04-2024 Annual PCP Team Chronic Disease Visit Annual PCP Team Chronic Disease Visit [facility] Start: 06-04-2024 BP Controlled (<130/80) BP Controlled (<130/80) [facility] in Start: 06-03-2024 End: 06-03-2024 Anticoagulant drug monitoring 06/03/2024 2:30 PM EDT Anticoagulation Visit Cou[facility] [address] [place] [address] Wstr, [facility] [address] [place] [address] inr [facility] Comment on above: inr Start: 05-20-2024 End: 05-20-2024 Patient encounter procedure 05/20/2024 1:00 PM EDT Office Visit [facility] [place] [address] [place], [place] [id number] Jimbo Swanson APRN.MUNICIPAL [address] MAGISTRATE [address] [place], [place] [address] Medicare Wellness [facility] [place] Comment on above: Medicare Wellness Start: 05-20-2024 End: 05-20-2024 Anticoagulant drug monitoring 05/20/2024 12:30 PM EDT Anticoagulation Visit [facility] [address] [facility] [place] [address] Wstr, Anticoag [facility] [place] [address] [place] [address] inr [facility] Comment on above: inr Start: 05-05-2024 End: 05-05-2024 Patient encounter procedure Cardiology Comment on above: S/P TAVR Start: 05-02-2024 End: 08-01-2024 CBC W Auto Differential panel - Blood COMPLETE BLOOD COUNT AND DIFFERENTIAL Lab STAT Nonrheumatic aortic valve stenosis Aortic valve disorder Expected: 05/02/2024 (Approximate), Expires: 08/01/2024 [facility] Comment on above: Expected: 05/02/2024 (Approximate), Expi res: 08/01/2024 Start: 05-02-2024 End: 08-01-2024 Comprehensive metabolic 2000 panel - Serum or Plasma COMPREHENSIVE METABOLIC PANEL Lab STAT Nonrheumatic aortic valve stenosis Aortic valve disorder Expected: 05/02/2024 (Approximate), Expires: 08/01/2024 [facility] Comment on above: Expected: 05/02/2024 (Approximate), Expi res: 08/01/2024 Start: 05-02-2024 End: 08-01-2024 CONFIRM BLOOD TYPE CONFIRM BLOOD TYPE Blood Bank STAT Nonrheumatic aortic valve stenosis Aortic valve disorder Expected: 05/02/2024 (Approximate), Expires: 08/01/2024 [facility] Comment on above: Expected: 05/02/2024 (Approximate), Expi res: 08/01/2024 Start: 05-02-2024 End: 08-01-2024 Natriuretic peptide.B prohormone N-Terminal [Mass/volume] in Serum or Plasma NT PRO BNP Lab STAT Nonrheumatic aortic valve stenosis Aortic valve disorder Expected: 05/02/2024 (Approximate), Expires: 08/01/2024 [facility] Comment on above: Expected: 05/02/2024 (Approximate), Expi res: 08/01/2024 Start: 05-02-2024 End: 08-01-2024 PT panel - Platelet poor plasma by Coagulation assay PROTHROMBIN TIME Lab STAT Nonrheumatic aortic valve stenosis Aortic valve disorder Expected: 05/02/2024 (Approximate), Expires: 08/01/2024 [facility] Comment on above: Expected: 05/02/2024 (Approximate), Expi res: 08/01/2024 Start: 05-02-2024 End: 08-01-2024 TYPE AND SCREEN,30 DAY TYPE AND SCREEN,30 DAY Blood Bank STAT Nonrheumatic aortic valve stenosis Aortic valve disorder Expected: 05/02/2024 (Approximate), Expires: 08/01/2024 [facility] Comment on above: Expected: 05/02/2024 (Approximate), Expi res: 08/01/2024 Start: 05-02-2024 End: 05-02-2024 Replace aortic valve perq femoral artry approach TRANSCATHETER AORTIC VALVE REPLACEMENT (TAVR/ROLA) W/ PROSTHETIC VALVE PERCUTANEOUS FEMORAL ARTERY APPROACH Aortic valve stenosis, etiology of cardiac valve disease unspecified 05/02/2024 10:[address] [facility] Start: 05-02-2024 End: 05-02-2024 Patient encounter procedure 05/02/2024 8:45 AM EDT Office Visit Cardiology [address] [place] [address] COMMERCIAL TF- TAVR ( CARLYN) Cardiology Comment on above: COMMERCIAL TF- TAVR ( CARLYN) Start: 05-02-2024 End: 05-02-2024 ambulatory 05/02/2024 8:30 AM EDT Procedure Cardiology [address] [place] [id number] COMMERCIAL TF- TAVR ( CARLYN) Cardiology Comment on above: COMMERCIAL TF- TAVR ( CARLYN) Start: 05-02-2024 End: 05-02-2024 Anesthesia consultation 05/02/2024 8:00 AM EDT Anesthesia Event Admitting [address] [place] [address] Nara Mcnair APRN.[address], [address] [place] [address] Admitting Start: 05-02-2024 End: 05-02-2024 Admission to [...] 11:30 AM EDT Anticoagulation Visit [facility] [address] [place], [place] [address] Wstr, Anticoag [facility] [address] [place], [place] [address] inr [facility] Comment on above: inr Start: 04-30-2024 End: 04-30-2024 Patient encounter procedure 04/30/2024 2:20 PM EDT Office Visit Cardiothoracic [address] [place] [address] COMMERCIAL TF- TAVR ( CARLYN) Cardiothoracic Comment on above: COMMERCIAL TF- TAVR ( CARLYN) Start: 04-30-2024 End: 04-30-2024 Patient encounter procedure Cardiology Comment on above: COMMERCIAL TF- TAVR ( CARLYN) Start: 04-30-2024 End: 04-30-2024 ambulatory 04/30/2024 11:00 AM EDT Results Only [facility] [address] [place] [address] COMMERCIAL TF- TAVR ( CARLYN) Main Walker J14 Draw Station Comment on above: COMMERCIAL TF- TAVR ( CARLYN) Start: 04-21-2024 End: 04-21-2024 Patient encounter procedure 04/21/2024 11:00 AM EST Office Visit [facility] [address] [place] [address] Geno Hart MD [address] [place] [address] Return in about 4 months (around 04/18/2024). [facility] Comment on above: Return in about 4 months (around 04/18/19). Start: 04-03-2024 End: 04-03-2024 Anticoagulant drug monitoring 04/03/2024 11:30 AM EST Anticoagulation Visit [facility] [address] [place], [place] [address] Wstr, Anticoag [facility] [address] [place], [place] [id number] inr [facility] Comment on above: inr Start: 03-25-2024 End: 03-25-2024 Patient encounter procedure Cardiology Comment on above: New TAVR Workup NM SPECT/CT CARDIAC AMYLOID Start: 03-25-2024 End: 03-25-2024 ambulatory Pulmonary Medicine Comment on above: New TAVR Workup Start: 03-24-2024 End: 03-24-2024 Admission to same day surgery center 03/24/2024 5:45 PM EST - 03/24/2024 6:53 PM EST Surgery [facility] [address] [place] [address] Michael Beavers MD [address] [place], [place] [id number] CORONARY ANGIO W CATH PLACE W IMAGE INJECT & INTERP W LT HEART CATH W INJECT LT VENTRGRAPHY [facility] Case Management Associate Comment on above: CORONARY ANGIO W CATH PLACE W IMAGE INJE CT & INTERP W LT HEART CATH W INJECT LT VENTRGRAPHY Start: 03-24-2024 End: 03-24-2024 Cath plmt l hrt & arts w/njx & angio img s&i CORONARY ANGIO W CATH PLACE W IMAGE INJECT & INTERP W LT HEART CATH W INJECT LT VENTRGRAPHY Nonrheumatic aortic valve stenosis 03/24/2024 5:45 PM EST 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 0] Start: 03-24-2024 End: 03-24-2024 Patient encounter procedure 03/24/2024 10:00 AM EST Office Visit Admitting [address] [place] [address] ADMIT Admitting Comment on above: ADMIT Start: 03-24-2024 End: 03-24-2024 ambulatory Cardiology Comment on above: LHC Start: 03-21-2024 End: 03-21-2024 ambulatory [facility] J1-4 Dra mikal Rosales Comment on above: New TAVR Workup Start: 03-21-2024 End: 03-21-2024 Patient encounter procedure Radiology Comment on above: New TAVR Workup Start: 03-21-2024 End: 03-21-2024 Patient encounter procedure 03/21/2024 9:30 AM EST Office Visit Cardiology [address] [place] [address] [place] [address] [place], [place] [phone] Clinician, Interventional [address] [place], [place] [id number] New TAVR Workup Cardiology Comment on above: New TAVR Workup Start: 03-03-2024 BP Controlled (<130/80) BP Controlled (<130/80) [facility] inic Start: 02-29-2024 End: 02-29-2024 Patient encounter procedure 02/29/2024 3:40 PM EST Office Visit [facility] [address] [place], [place] [id number] Claudine Durán MD [address] [place], [place] [id number] 4 Month follow up [facility] Comment on above: 4 Month follow up Start: 02-29-2024 End: 02-29-2024 Anticoagulant drug monitoring 02/29/2024 3:30 PM EST Anticoagulation Visit [facility] [address] [place] [address] Wstr, [facility] [address] [place] [address] inr [facility] Comment on above: inr Start: 02-25-2024 End: 02-25-2024 Patient encounter procedure 02/25/2024 12:15 PM EST Office Visit Cardiology [address] [place] [address] Lili Roche MD [address] [place] [address] Aortic valve stenosis, etiology of cardiac valve disease unspecified [I35.0] Cardiology Comment on above: Aortic valve stenosis, etiology of cardi ac valve disease unspecified [I35.0] Start: 02-20-2024 Advance Directive Discussion Advance Directive Discussion [facility] Start: 01-31-2024 End: 01-31-2024 Anticoagulant drug monitoring 01/31/2024 10:30 AM EST Anticoagulation Visit Coumad[facility] [address] [place] [address] [facility]str[facility] [address] [place] [address] inr Coumadin [facility] Comment on above: inr Start: 01-25-2024 End: 01-25-2024 Patient encounter procedure 01/25/2024 11:20 AM EST Office Visit Cardiology [address] [address] William Messina DO [address] [place] [address] 3 month follow up Cardiology Comment on above: 3 month follow up Start: 01-18-2024 End: 10-17-2024 ECHO LIMITED ECHO LIMITED Cardiology Routine Pericardial effusion Expected: 01/18/2024 (Approximate), Expires: 10/17/2024 [facility] Work Phone: Comment on above: Expected: 01/18/2024 (Approximate), Expi res: 10/17/2024 Start: 01-18-2024 End: 01-18-2024 Patient encounter procedure 01/18/2024 10:30 AM EST Office Visit Cardiology [address] [place], [place] [id number] Pericardial effusion [I31.39] Cardiology Comment on above: Pericardial effusion [I31.39] Start: 01-17-2024 Covid-19 Vaccine () Covid-19 Vaccine () [facility] Start: 01-10-2024 End: 01-10-2024 Anticoagulant drug monitoring 01/10/2024 12:00 PM EST Anticoagulation Visit Coumadin [facility] [address] [place], [place] [phone] Wstr, Anticoag [facility] [address] [place] [address] inr Coumadin [facility] Comment on above: inr Start: 01-08-2024 End: 04-08-2024 CBC W Auto Differential panel - Blood COMPLETE BLOOD COUNT AND DIFFERENTIAL Lab Routine Nonrheumatic aortic valve stenosis Aortic valve disorder Expected: 01/08/2024, Expires: 04/08/2024 [facility] Comment on above: Expected: 01/08/2024, Expires: Start: 01-08-2024 End: 04-08-2024 Comprehensive metabolic 2000 panel - Serum or Plasma COMPREHENSIVE METABOLIC PANEL Lab Routine Nonrheumatic aortic valve stenosis Aortic valve disorder Expected: 01/08/2024, Expires: 04/08/2024 [facility] Comment on above: Expected: 01/08/2024, Expires: Start: 01-08-2024 End: 04-08-2024 HIGH SENSITIVITY TROPONIN T HIGH SENSITIVITY TROPONIN T Lab Routine Nonrheumatic aortic valve stenosis Expected: 01/08/2024, Expires: 04/08/2024 [facility] Comment on above: Expected: 01/08/2024, Expires: 5 Start: 01-08-2024 End: 04-08-2024 Lipoprotein a [Mass/volume] in Serum or Plasma LIPOPROTEIN (A) Lab Routine Nonrheumatic aortic valve stenosis Expected: 01/08/2024, Expires: 04/08/2024 [facility] Comment on above: Expected: 01/08/2024, Expires: 5 Start: 01-08-2024 End: 04-08-2024 Natriuretic peptide.B prohormone N-Terminal [Mass/volume] in Serum or Plasma NT PRO BNP Lab Routine Nonrheumatic aortic valve stenosis Expected: 01/08/2024, Expires: 04/08/2024 [facility] Comment on above: Expected: 01/08/2024, Expires: 5 Start: 01-08-2024 End: 04-08-2024 PT panel - Platelet poor plasma by Coagulation assay PROTHROMBIN TIME Lab STAT Nonrheumatic aortic valve stenosis Expected: 01/08/2024, Expires: 04/08/2024 [facility] Comment on above: Expected: 01/08/2024, Expires: Start: 01-08-2024 End: 01-08-2024 Patient encounter procedure 01/08/2024 10:30 AM EST Office Visit [facility] [address] [place] [phone] Geno Hart MD [address] [place] [address] follow up [facility] Comment on above: follow up Start: 01-05-2024 BP Controlled (<130/80) BP Controlled (<130/80) [facility] Start: 01-02-2024 End: 01-02-2024 Patient encounter procedure 01/02/2024 9:45 AM EST Office Visit Cardiology [address] [id number] Lili Roche MD [address] [place] [address] DX: Aortic valve stenosis, etiology of cardiac valve disease unspecified; Mitral valve stenosis, unspecified etiology Cardiology Comment on above: DX: Aortic valve stenosis, etiology of c ardiac valve disease unspecified; Mitral valve stenosis, unspecified etiology Start: 01-02-2024 End: 01-02-2024 ambulatory 01/02/2024 9:00 AM EST Results Only Cardiology [address] [place] [address] DX: Aortic valve stenosis, etiology of cardiac valve disease unspecified; Mitral valve stenosis, unspecified etiology Cardiology Comment on above: DX: Aortic valve stenosis, etiology of c ardiac valve disease unspecified; Mitral valve stenosis, unspecified etiology Start: 12-27-2023 End: 12-27-2023 Anticoagulant drug monitoring 12/27/2023 10:30 AM EST Anticoagulation Visit [facility] [address] [place] [address] Wstr, [facility] [address] [place] [address] inr [facility] Comment on above: inr Start: 12-18-2023 End: 12-18-2023 Patient encounter procedure 12/18/2023 11:00 AM EDT Office Visit [facility] [address] [place] [phone] Geno Hart MD [address] [place] [address] follow up [facility] Comment on above: follow up Start: 12-13-2023 End: 12-13-2023 Anticoagulant drug monitoring 12/13/2023 10:45 AM EDT Anticoagulation Visit [facility] [place] [address] [place], [place] [id number] Wstr, Anticoag [facility] [address] [place], [place] [id number] inr [facility] [place] Comment on above: inr Start: 11-29-2023 End: 11-29-2023 Anticoagulant drug monitoring 11/29/2023 11:00 AM EDT Anticoagulation Visit [facility] [place] [address] [place] [address] Wstr, [facility] [place] [address] [place] [address] inr [facility] Comment on above: inr Start: 11-15-2023 End: 11-15-2023 Anticoagulant drug monitoring 11/15/2023 12:00 PM EDT Anticoagulation Visit [facility] [place] [address] [place] [address] Wstr, [facility] [place] [address] [place] [address] inr [facility] [place] Comment on above: inr Start: 11-08-2023 End: 11-08-2023 Anticoagulant drug monitoring 11/08/2023 1:00 PM EDT Anticoagulation Visit [facility] [place] [address] [place] [address] Wstr, Anticoag [facility] [place] [address] [place] [address] inr [facility] [place] Comment on above: inr Start: 10-28-2023 BP CONTROLLED (<130/80) BP CONTROLLED (<130/80) [facility] in Start: 10-25-2023 End: 10-25-2023 Anticoagulant drug monitoring 10/25/2023 12:00 PM EDT Anticoagulation Visit [facility] [place] [address] [place] [address] Wstr, Anticoag [facility] [place] [address] [place] [address] inr [facility] [place] Comment on above: inr Start: 10-21-2023 Covid-19 Vaccine () Covid-19 Vaccine () [facility] Start: 10-21-2023 Covid-19 Vaccine ( season) Covid-19 Vaccine () [facility] Start: 10-21-2023 Influenza vaccination Influ[facility] Start: 10-19-2023 End: 10-19-2023 Anticoagulant drug monitoring 10/19/2023 11:00 AM EDT Anticoagulation Visit [facility] [place] [address] [place] [address] Wstr, Anticoag [facility] [place] [address] [place] [address] inr [facility] [place] Comment on above: inr Start: 10-18-2023 End: 10-18-2023 Patient encounter procedure 10/18/2023 10:00 AM EDT Office Visit Cardiology [address] [address] Bibi Alegria, [employer] [address] [place] [address] 1 month follow up Cardiology Comment on above: 1 month follow up Start: 10-11-2023 End: 10-11-2023 Patient encounter procedure 10/11/2023 1:00 PM EDT Office Visit [facility] [place] [address] [place] [address] Jimbo Swanson, [address] [place] [address] 4Month follow up [facility] [place] Comment on above: 4Month follow up Start: 09-28-2023 End: 09-28-2023 Patient encounter procedure 09/28/2023 10:30 AM EDT Office Visit Cardiology [address] [address] Nonrheumatic aortic valve stenosis [I35.0] Cardiology Comment on above: Nonrheumatic aortic valve stenosis [I35. 0] Start: 09-27-2023 End: 09-27-2023 Anticoagulant drug monitoring 09/27/2023 10:45 AM EDT Anticoagulation Visit [facility] [place] [address] [place] [address] Wstr, Anticoag [facility] [address] [facility] [place] [place] [address] inr [facility] [place] Comment on above: inr Start: 09-20-2023 End: 09-20-2023 Anticoagulant drug monitoring 09/20/2023 10:00 AM EDT Anticoagulation Visit [facility] [place] [address] [place] [address] Wstr, Anticoag [facility] [address] [place] [address] inr [facility] [place] Comment on above: inr Start: 09-10-2023 End: 12-10-2023 Basic metabolic 2000 panel - Serum or Plasma BASIC METABOLIC PANEL Lab Routine Nonrheumatic aortic valve stenosis Mitral valve stenosis, non-rheumatic Essential hypertension Pericardial effusion (noninflammatory) Leg edema Expected: 09/10/2023, Expires: 12/10/2023 [facility] Comment on above: Expected: 09/10/2023, Expires: Start: 09-10-2023 End: 12-10-2023 Natriuretic peptide.B prohormone N-Terminal [Mass/volume] in Serum or Plasma NT PRO BNP Lab Routine Nonrheumatic aortic valve stenosis Mitral valve stenosis, non-rheumatic Essential hypertension Pericardial effusion (noninflammatory) Leg edema Expected: 09/10/2023, Expires: 12/10/2023 [facility] Comment on above: Expected: 09/10/2023, Expires: Start: 08-30-2023 End: 08-30-2023 Anticoagulant drug monitoring 08/30/2023 12:45 PM EDT Anticoagulation Visit [facility] [place] [address] [place] [address] Wstr, Anticoag [facility] [place] [address] [place] [address] inr [facility] [place] Comment on above: inr Start: 08-28-2023 End: 11-27-2023 Histoplasma capsulatum Ab [Presence] in Serum by Immune diffusion (ID) HISTOPLASMA AB ID Lab Routine Disseminated histoplasmosis Encounter for long-term (current) use of antibiotics Expected: 08/28/2023, Expires: 11/27/2023 [facility] Work Phone: Comment on above: Expected: 08/28/2023, Expires: Start: 08-28-2023 End: 08-28-2023 Patient encounter procedure 08/28/2023 9:00 AM EDT Office Visit [facility] [address] [place] [phone] Geno Hart MD [address] [place] [address] follow up [facility] Comment on above: follow up Start: 08-27-2023 End: 08-27-2023 Patient encounter procedure 08/27/2023 8:20 AM EDT Office Visit Cardiology [address] [place], [place] [id number] William Messina, [address] [place] [address] Annual Cardiology Comment on above: Annual Start: 08-22-2023 End: 08-22-2023 Anticoagulant drug monitoring 08/22/2023 9:30 AM EDT Anticoagulation Visit Coumadin [facility] [address] [place], [place] [address] Wstr, Anticoag [facility] [address] [place], [place] [address] inr Coumadin [facility] Comment on above: inr Start: 08-15-2023 End: 11-14-2023 Basic metabolic 2000 panel - Serum or Plasma BASIC METABOLIC PANEL Lab Routine Encounter for therapeutic drug monitoring Expected: 08/15/2023, Expires: 11/14/2023 [facility] Work Phone: Comment on above: Expected: 08/15/2023, Expires: Start: 08-15-2023 End: 08-15-2023 Patient encounter procedure Radiology Comment on above: Right knee Right knee pain/swel ling Start: 08-13-2023 End: 08-13-2023 Patient encounter procedure 08/13/2023 9:20 AM EDT Office Visit Cardiology [address] [place] [address] William Messina, [address] [place] [address] annual Cardiology Comment on above: annual Start: 08-09-2023 End: 08-09-2023 Anticoagulant drug monitoring 08/09/2023 9:30 AM EDT Anticoagulation Visit [facility] [place] [address] [place] [address] Wstr, Anticoag [facility] [place] [address] [place] [address] inr [facility] [place] Comment on above: inr Start: 07-26-2023 End: 07-26-2023 Anticoagulant drug monitoring 07/26/2023 9:30 AM EDT Anticoagulation Visit [facility] [place] [address] [place] [address] Wstr, Anticoag [facility] [place] [address] [place] [address] inr [facility] [place] Comment on above: inr Start: 07-21-2023 BP CONTROLLED (<130/80) BP CONTROLLED (<130/80) [facility] in Start: 07-12-2023 End: 07-12-2023 Anticoagulant drug monitoring 07/12/2023 9:00 AM EDT Anticoagulation Visit [facility] [place] [address] [place] [address] Wstr, Anticoag [facility] [place] [address] [place] [address] inr [facility] [place] Comment on above: inr Start: 07-11-2023 End: 07-11-2023 Patient encounter procedure 07/11/2023 12:00 PM EDT Office Visit [facility] [address] [place] [id number] Acute pain of right knee [M25.561] [facility] Comment on above: Acute pain of right knee [M25.561] Start: 07-08-2023 DIABETES SCREEN DIABETES SCREEN [facility] Start: 07-08-2023 Diabetes Screening Diabetes Screening [facility] Start: 05-04-2023 Blood chemistry [facility] Start: 04-30-2023 Development of care plan [facility] Start: 04-30-2023 Patient discharge [facility] Start: 04-27-2023 Blood chemistry [facility] Start: 04-20-2023 Blood chemistry [facility] Start: 04-19-2023 Prothrombin time [facility] Start: 04-17-2023 Prothrombin time [facility] Start: 04-15-2023 Wound care [facility] Start: 04-10-2023 Consultation for treatment [facility] Start: 04-09-2023 Speech therapy management [facility] Start: 04-09-2023 Speech therapy assessment [facility] Start: 04-08-2023 [facility] Start: 04-08-2023 Inhalation therapy procedure [facility] Start: 04-06-2023 Development of care plan [facility] Start: 04-06-2023 Developing a treatment plan [facility] Start: 04-05-2023 Admission procedure [facility] Start: 04-05-2023 Measuring intake and output [facility] Start: 04-05-2023 Patient referral to dietitian [facility] Start: 04-05-2023 Referral to occupational therapist [facility] Start: 04-05-2023 Referral to service [facility] Start: 04-05-2023 Vital signs measurements [facility] Start: 04-05-2023 End: 04-05-2023 [facility] Start: 04-05-2023 Verification routine [facility] Start: 04-05-2023 Patient discharge [facility] Start: 04-05-2023 Prothrombin time [facility] Start: 04-04-2023 Application of intermittent pneumatic compression device [facility] Start: 04-04-2023 Application of intermittent pneumatic compression device [facility] Start: 04-04-2023 Consultation [facility] Start: 04-04-2023 Prothrombin time [facility] Start: 04-03-2023 Consultation [facility] Start: 04-03-2023 Prothrombin time [facility] Start: 04-02-2023 Prothrombin time [facility] Start: 04-01-2023 End: 07-01-2023 ALK PHOS ISOENZYM BL ALK PHOS ISOENZYM BL Lab Routine Elevated alkaline phosphatase level Expected: 04/01/2023, Expires: 07/01/2023 [facility] Work Phone: Comment on above: Expected: 04/01/2023, Expires: 4 Start: 04-01-2023 End: 07-01-2023 Comprehensive metabolic 2000 panel - Serum or Plasma COMP METABOLIC PANEL Lab Routine Hypoalbuminemia Elevated alkaline phosphatase level Elevated LFTs Expected: 04/01/2023, Expires: 07/01/2023 [facility] Work Phone: Comment on above: Expected: 04/01/2023, Expires: 4 Start: 04-01-2023 Application of elastic bandage [facility] Start: 04-01-2023 Administration of blood product [facility] Start: 04-01-2023 End: 07-01-2023 CBC W Auto Differential panel - Blood [facility] Comment on above: Expected: 04/01/2023, Expires: 4 Start: 04-01-2023 Magnesium [Mass/volume] in Serum or Plasma [facility] Start: 04-01-2023 Prothrombin time [facility] Start: 04-01-2023 [facility] Start: 04-01-2023 Inhalation therapy procedure [facility] Start: 03-31-2023 Following clinical pathway protocol [facility] Start: 03-31-2023 Ankle 2 Views Ankle 2 Views [facility] Start: 03-31-2023 Assessment of risk of venous thromboembolism [facility] Start: 03-31-2023 C reactive protein [Mass/volume] in Serum or Plasma [facility] Start: 03-31-2023 Consultation for treatment [facility] Start: 03-31-2023 Elevation of affected extremity [facility] Start: 03-31-2023 Erythrocyte sedimentation rate [facility] Start: 03-31-2023 Insertion of catheter into peripheral vein [facility] Start: 03-31-2023 Measuring intake and output [facility] Start: 03-31-2023 Providing care according to standard [facility] Start: 03-31-2023 Provision of activity privileges [facility] Start: 03-31-2023 Referral to occupational therapist [facility] Start: 03-31-2023 Referral to service [facility] Start: 03-31-2023 US Heart [facility] Start: 03-31-2023 US.doppler Lower extremity vein [facility] Start: 03-31-2023 XR Ankle 2 Views [facility] Start: 03-31-2023 [facility] Start: 03-31-2023 Verification routine [facility] Start: 03-31-2023 Admission procedure [facility] Start: 03-31-2023 Consultation [facility] Start: 03-31-2023 Patient referral to dietitian [facility] Start: 03-28-2023 [facility] Start: 03-28-2023 [facility] Start: 03-28-2023 Emergency department visit high/urgent severity [facility] Start: 03-27-2023 Patient discharge [facility] Start: 03-27-2023 [facility] Start: 03-27-2023 [facility] Start: 03-26-2023 Following clinical pathway protocol [facility] Start: 03-26-2023 Assessment of risk of venous thromboembolism [facility] Start: 03-26-2023 Incentive spirometry [facility] Start: 03-26-2023 Insertion of catheter into peripheral vein [facility] Start: 03-26-2023 Measuring intake and output [facility] Start: 03-26-2023 Providing care according to standard [facility] Start: 03-26-2023 Provision of activity privileges [facility] Start: 03-26-2023 Referral to occupational therapist [facility] Start: 03-26-2023 Referral to service [facility] Start: 03-26-2023 [facility] Start: 03-26-2023 Verification routine [facility] Start: 03-26-2023 Admission procedure [facility] Start: 03-26-2023 Hospital admission, emergency, from emergency room, medical nature [facility] Start: 03-26-2023 [facility] Start: 03-26-2023 Inhalation therapy procedure [facility] Start: 03-19-2023 Fresh frozen plasma [facility] Start: 03-19-2023 End: 03-19-2023 [facility] Start: 03-19-2023 Administration of blood product [facility] Start: 03-13-2023 ANNUAL PCP TEAM CHRONIC DISEASE VISIT ANNUAL PCP TEAM CHRONIC DISEASE VISIT [facility] Start: 03-13-2023 BP CONTROLLED (<130/80) BP CONTROLLED (<130/80) [facility] Start: 03-01-2023 Covid-19 Vaccine () Covid-19 Vaccine () [facility] Start: 02-19-2023 Advance Directive Discussion Advance Directive Discussion [facility] Start: 02-19-2023 Behavioral Health Screening Behavioral Health Screening [facility] Start: 02-19-2023 Depression Assessment Depression Assessment [facility] Start: 01-23-2023 End: 08-23-2023 Ct thorax w/o contrast material CT CHEST WO IVCON Radiology Routine Lung nodules Bronchiectasis without complication (HCC) Expected: 01/23/2023, Expires: 08/23/2023 [facility] Work Phone: Comment on above: Expected: 01/23/2023, Expires: Start: 11-29-2022 BP CONTROLLED (<130/80) BP CONTROLLED (<130/80) [facility] Start: 11-10-2022 Adult depression screening assessment DEPRESSION SCREENING [facility] Start: 10-20-2022 Covid-19 Vaccine () Covid-19 Vaccine () [facility] Start: 09-01-2023 Influenza vaccination INFLUENZA (#1) [facility] Start: 09-20-2022 BP CONTROLLED (<130/80) BP CONTROLLED (<130/80) [facility] Start: 09-05-2022 Mammography MAMMOGRAM [facility] Start: 07-11-2022 ANNUAL PCP TEAM CHRONIC DISEASE VISIT ANNUAL PCP TEAM CHRONIC DISEASE VISIT [facility] Start: 07-11-2022 BP CONTROLLED (<130/80) BP CONTROLLED (<130/80) [facility] Start: 03-14-2022 ANNUAL PCP TEAM CHRONIC DISEASE VISIT ANNUAL PCP TEAM CHRONIC DISEASE VISIT [facility] Start: 03-14-2022 BP CONTROLLED (<130/80) BP CONTROLLED (<130/80) [facility] Start: 02-19-2022 ADVANCE DIRECTIVE DISCUSSION ADVANCE DIRECTIVE DISCUSSION [facility] Start: 02-19-2022 DEPRESSION ASSESSMENT DEPRESSION ASSESSMENT [facility] Start: 01-05-2022 COVID-19 VACCINE (7 - Pfizer risk series) COVID-19 VACCINE (7 - Pfizer risk series) [facility] Start: 11-11-2021 COVID-19 VACCINE (5 - Booster for Pfizer series) COVID-19 VACCINE (5 - Booster for Pfizer series) [facility] Start: 11-10-2021 End: 01-10-2022 Alpha 1 antitrypsin [Mass/volume] in Serum or Plasma [id number] BL Lab Routine Chronic obstructive pulmonary disease, unspecified COPD type (HCC) Expected: 11/10/2021, Expires: 01/10/2022 [facility] Work Phone: Comment on above: Expected: 11/10/2021, Expires: 2 Start: 10-20-2021 Influenza vaccination INFLUENZA (#1) [facility] Start: 07-13-2021 Adult depression screening assessment DEPRESSION SCREENING [facility] Start: 06-01-2021 Mammography MAMMOGRAM [facility] Start: 02-19-2021 ADVANCE DIRECTIVE DISCUSSION ADVANCE DIRECTIVE DISCUSSION [facility] Start: 02-19-2021 DEPRESSION ASSESSMENT DEPRESSION ASSESSMENT [facility] Start: 02-08-2021 COVID-19 VACCINE (4 - Booster for Pfizer series) COVID-19 VACCINE (4 - Booster for Pfizer series) [facility] Start: 12-27-2020 LIPID SCREEN LIPID SCREEN [facility] Start: 08-04-2017 FECAL OCCULT BLOOD FECAL OCCULT BLOOD [facility] Start: 08-04-2017 Screening for malignant neoplasm of colon Fecal Occult Blood [facility] Start: 2007 RSV Vaccine (1 - 1-dose 60+ series) RSV Vaccine (1 - 1-dose 60+ series) [facility] Start: 05-29-1992 COLOGUARD (FIT-DNA) COLOGUARD (FIT-DNA) [facility] Start: 05-29-[address] COLONOGRAPHY [facility] Start: 05-29-1992 Screening for malignant neoplasm of colon [facility] Start: 05-29-1992 SIGMOIDOSCOPY SIGMOIDOSCOPY [facility] Start: 05-29-1977 Zoledronic acid therapy ALPHA-1 ANTITRYPSIN DEFICIENCY SCREENING [facility] Start: 05-29-1965 Anxiety Screening Anxiety Screening [facility] Start: 05-29-1965 BP CONTROLLED (<130/80) BP CONTROLLED (<130/80) [facility] Start: 05-29-1965 Depression Screening Depression Screening [facility] Alanine aminotransfe rase [Enzymatic activity/volume] in Serum or Plasma [facility] Albumin [Mass/volume ] in Serum or Plasma [facility] Alkaline phosphatase [Enzymatic activity/volume] in Serum or Plasma [facility] Anion gap in Serum o r Plasma [facility] Anion gap measurement [facility] Anion gap measurement [facility] Anion gap measurement [facility] Anion gap measurement [facility] Aspartate aminotransferase [Enzymatic activity/volume] in Serum or Plasma [facility] End: 08-21-2024 Basic metabolic 2000 panel - Serum or Plasma BASIC METABOLIC PANEL Lab Routine Encounter for long-term current use of medication 20 Occurrences starting 08/22/2023 until 08/21/2024 [facility] Work Phone: Comment on above: 20 Occurrences starting 08/22/2023 until 08/21/2024 Bilirubin measuremen t, urine [facility] Bilirubin, total measurement [facility] BUN/Creatinine ratio [facility] BUN/Creatinine ratio [facility] BUN/Creatinine ratio [facility] BUN/Creatinine ratio [facility] BUN/Creatinine ratio [facility] Calcium [Mass/volume ] in Serum or Plasma [facility] Calcium [Mass/volume ] in Serum or Plasma [facility] Calcium [Mass/volume ] in Serum or Plasma [facility] Calcium [Mass/volume ] in Serum or Plasma [facility] Calcium [Mass/volume ] in Serum or Plasma [facility] Carbon dioxide, tota l [Moles/volume] in Central venous blood [facility] Carbon dioxide, tota l [Moles/volume] in Serum or Plasma [facility] Carbon dioxide, tota l [Moles/volume] in Serum or Plasma [facility] Carbon dioxide, tota l [Moles/volume] in Serum or Plasma [facility] Carbon dioxide, tota l [Moles/volume] in Serum or Plasma [facility] CARDIAC REHAB II OUT PT ([place], [place]) CARDIAC REHAB II OUTPT ([place], [place]) BIC Routine Nonrheumatic aortic valve 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) Ordered: 05/05/2024 [facility] Work Phone: Comment on above: Ordered: 05/05/2024 Chloride [Moles/volu me] in Serum or Plasma [facility] Chloride [Moles/volu me] in Serum or Plasma [facility] Chloride [Moles/volu me] in Serum or Plasma [facility] Chloride [Moles/volu me] in Serum or Plasma [facility] Creatinine [Mass/vol ume] in Serum or Plasma [facility] Creatinine [Moles/volume] in Serum or Plasma [facility] Creatinine [Moles/volume] in Serum or Plasma [facility] Creatinine [Moles/volume] in Serum or Plasma [facility] Creatinine [Moles/volume] in Serum or Plasma [facility] CT Chest WO contrast CT CHEST WO IVCON Radiology Routine Disseminated histoplasmosis 08/30/2023 2:07 PM EDT [facility] Work Phone: End: 09-26-2024 CT Chest WO contrast CT CHEST WO IVCON Radiology Routine Disseminated histoplasmosis 1 Occurrences starting 08/28/2023 until 09/26/2024 [facility] Comment on above: 1 Occurrences starting 08/28/2023 until 09/26/2024 End: 12-29-2022 Ct thorax w/o contrast material CT CHEST WO IVCON Radiology Routine Lung nodules 1 Occurrences starting 11/29/2021 until 12/29/2022 [facility] Work Phone: Comment on above: 1 Occurrences starting 11/29/2021 until 12/29/2022 End: 02-06-2025 CTA Chest vessels and Abdominal vessels and Pelvis vessels W contrast IV CTA CHEST/ABD/PEL (GATED) W IVCON Radiology Routine Nonrheumatic aortic valve stenosis Encounter for preprocedural cardiovascular examination 1 Occurrences starting 01/08/2024 until 02/06/2025 [facility] Comment on above: 1 Occurrences starting 01/08/2024 until 02/06/2025 End: 08-12-2022 ECG COMPLETE ECG COMPLETE ECG Routine Aortic stenosis with bicuspid valve Essential hypertension 1 Occurrences starting 08/12/2021 until 08/12/2022 [facility] Work Phone: Comment on above: 1 Occurrences starting 08/12/2021 until 08/12/2022 End: 01-07-2025 ECG COMPLETE ECG COMPLETE ECG Routine Nonrheumatic aortic valve stenosis Aortic valve disorder 1 Occurrences starting 01/08/2024 until 01/07/2025 [facility] Comment on above: 1 Occurrences starting 01/08/2024 until 01/07/2025 End: 04-15-2025 ECG COMPLETE ECG COMPLETE ECG Routine Nonrheumatic aortic valve stenosis Aortic valve disorder 1 Occurrences starting 04/15/2024 until 04/15/2025 [facility] Work Phone: Comment on above: 1 Occurrences starting 04/15/2024 until 04/15/2025 End: 05-02-2025 ECG COMPLETE ECG COMPLETE ECG Routine Nonrheumatic aortic valve stenosis 1 Occurrences starting 05/02/2024 until 05/02/2025 [facility] Work Phone: Comment on above: 1 Occurrences starting 05/02/2024 until 05/02/2025 End: 08-26-2024 ECHO LIMITED ECHO LIMITED Cardiology Routine Nonrheumatic aortic valve stenosis Mitral valve stenosis, non-rheumatic Essential hypertension Pericardial effusion (noninflammatory) 1 Occurrences starting 08/27/2023 until 08/26/2024 [facility] Work Phone: Comment on above: 1 Occurrences starting 08/27/2023 until 08/26/2024 End: 08-12-2022 Echocardiography ECHO Cardiology Routine Aortic stenosis with bicuspid valve Essential hypertension 1 Occurrences starting 08/12/2021 until 08/12/2022 [facility] Work Phone: Comment on above: 1 Occurrences starting 08/12/2021 until 08/12/2022 End: 08-30-2023 Echocardiography ECHO Cardiology Routine Aortic stenosis with bicuspid valve 1 Occurrences starting 08/29/2022 until 08/30/2023 [facility] Work Phone: Comment on above: 1 Occurrences starting 08/29/2022 until 08/30/2023 End: 01-07-2025 Echocardiography ECHO Cardiology Routine Nonrheumatic aortic valve stenosis Aortic valve disorder 1 Occurrences starting 01/08/2024 until 01/07/2025 [facility] Comment on above: 1 Occurrences starting 01/08/2024 until 01/07/2025 Erythrocyte mean corpuscular volume determination [facility] Erythrocyte mean corpuscular volume determination [facility] Glucose [Mass/volume ] in Serum or Plasma [facility] Glucose [Mass/volume ] in Serum or Plasma [facility] Glucose [Mass/volume ] in Serum or Plasma [facility] Glucose [Mass/volume ] in Serum or Plasma [facility] Glucose [Mass/volume ] in Serum or Plasma [facility] Hematocrit [Volume Fraction] of Blood [facility] Hematocrit [Volume Fraction] of Blood [facility] Hemoglobin [Mass/vol ume] in Blood [facility] Hemoglobin [Mass/vol ume] in Blood [facility] Hemoglobin [Presence ] in Urine [facility] Histoplasma capsulat um Ab [Presence] in Serum by Immune diffusion (ID) HISTOPLASMA AB ID Lab Routine Disseminated histoplasmosis Encounter for long-term (current) use of antibiotics 08/30/2023 1:14 PM EDT [facility] INR in Blood by Coagulation assay [facility] INR in Blood by Coagulation assay [facility] INR in Blood by Coagulation assay [facility] INR in Blood by Coagulation assay [facility] INR in Blood by Coagulation assay [facility] INR in Blood by Coagulation assay [facility] INR in Blood by Coagulation assay [facility] INR in Blood by Coagulation assay [facility] INR in Blood by Coagulation assay [facility] INR in Blood by Coagulation assay [facility] INR in Blood by Coagulation assay [facility] End: 10-27-2022 INR in Platelet poor plasma by Coagulation assay INR (POC) Lab Routine Personal history of DVT (deep vein thrombosis) Once per month for 99 Occurrences starting 11/09/2021 until 10/27/2022 [facility] Work Phone: Comment on above: Once per month for 99 Occurrences starti ng 11/09/2021 until 10/27/2022 End: 11-10-2023 INR in Platelet poor plasma by Coagulation assay INR (POC) Lab Routine Personal history of DVT (deep vein thrombosis) Once per month for 99 Occurrences starting 11/09/2022 until 11/10/2023 [facility] Work Phone: Comment on above: Once per month for 99 Occurrences starti ng 11/09/2022 until 11/10/2023 End: 11-14-2024 INR in Platelet poor plasma by Coagulation assay INR (POC) Lab Routine Personal history of DVT (deep vein thrombosis) Once per month for 99 Occurrences starting 11/15/2023 until 11/14/2024 [facility] Work Phone: Comment on above: Once per month for 99 Occurrences starti ng 11/15/2023 until 11/14/2024 Leukocytes [#/volume ] in Blood [facility] Leukocytes [#/volume ] in Blood [facility] End: 03-14-2022 LIPID PANEL BASIC LIPID PANEL BASIC Lab Routine Essential hypertension 1 Occurrences starting 03/14/2021 until 03/14/2022 [facility] Work Phone: Comment on above: 1 Occurrences starting 03/14/2021 until 03/14/2022 End: 02-06-2025 LUNG DIFFUSION CAPACITY (DLCO) LUNG DIFFUSION CAPACITY (DLCO) PFT Routine Nonrheumatic aortic valve stenosis 1 Occurrences starting 01/08/2024 until 02/06/2025 [facility] Comment on above: 1 Occurrences starting 01/08/2024 until 02/06/2025 LUNG DIFFUSION CAPAC ITY (DLCO) LUNG DIFFUSION CAPACITY (DLCO) PFT Routine Nonrheumatic aortic valve stenosis 03/25/2024 9:28 AM EST [facility] Work Phone: End: 11-26-2023 SABINO SCREENING SABINO SCREENING Radiology Routine Encounter for screening mammogram for breast cancer 1 Occurrences starting 10/27/2022 until 11/26/2023 [facility] Work Phone: Comment on above: 1 Occurrences starting 10/27/2022 until 11/26/2023 End: 11-26-2023 SABINO SCREENING W ALIZE SABINO SCREENING W ALIZE Radiology Routine Encounter for screening mammogram for breast cancer 1 Occurrences starting 10/27/2022 until 11/26/2023 [facility] Work Phone: Comment on above: 1 Occurrences starting 10/27/2022 until 11/26/2023 Mean corpuscular hemoglobin concentration determination [facility] Mean corpuscular hemoglobin concentration determination [facility] Mean corpuscular hemoglobin determination [facility] Mean corpuscular hemoglobin determination [facility] Measurement of keton es in urine using dipstick [facility] Measurement of renal function [facility] Measurement of renal function [facility] Measurement of renal function [facility] Measurement of renal function [facility] Measurement of renal function [facility] Microscopic urinalysis [facility] Microscopic urinalysis [facility] Neutrophil count [facility] Neutrophil count [facility] Neutrophil percent differential count [facility] Neutrophil percent differential count [facility] Organism count, microscopic method [facility] Patient Education [facility] Work Phone: Patient referral [facility] Work Phone: pH of Urine [facility] Platelets [#/volume] in Blood [facility] Platelets [#/volume] in Blood [facility] Potassium [Moles/vol ume] in Serum or Plasma [facility] Potassium [Moles/vol ume] in Serum or Plasma [facility] Potassium [Moles/vol ume] in Serum or Plasma [facility] Potassium [Moles/vol ume] in Serum or Plasma [facility] Potassium measurement [facility] Prothrombin time [facility] End: 10-27-2022 PT panel - Platelet poor plasma by Coagulation assay PROTHROMBIN TIME/PT Lab STAT Personal history of DVT (deep vein thrombosis) Once per month for 99 Occurrences starting 11/09/2021 until 10/27/2022 [facility] Work Phone: Comment on above: Once per month for 99 Occurrences starti ng 11/09/2021 until 10/27/2022 End: 11-09-2023 PT panel - Platelet poor plasma by Coagulation assay PROTHROMBIN TIME/PT Lab STAT Personal history of DVT (deep vein thrombosis) Once per month for 99 Occurrences starting 11/09/2022 until 11/09/2023 [facility] Work Phone: Comment on above: Once per month for 99 Occurrences starti ng 11/09/2022 until 11/09/2023 End: 11-14-2024 PT panel - Platelet poor plasma by Coagulation assay PROTHROMBIN TIME Lab STAT Personal history of DVT (deep vein thrombosis) Once per month for 99 Occurrences starting 11/15/2023 until 11/14/2024 [facility] Comment on above: Once per month for 99 Occurrences starti ng 11/15/2023 until 11/14/2024 Red blood cell count [facility] Red blood cell count [facility] Red cell distributio n width determination [facility] Red cell distributio n width determination [facility] Serum chloride measurement [facility] Sodium [Moles/volume ] in Serum or Plasma [facility] Sodium [Moles/volume ] in Serum or Plasma [facility] Sodium [Moles/volume ] in Serum or Plasma [facility] Sodium [Moles/volume ] in Serum or Plasma [facility] Sodium measurement [facility] Specific gravity of Urine [facility] End: 02-06-2025 SPECT Heart for infarct W Tc-99m PYP IV NM SPECT/CT CARDIAC AMYLOID Radiology Routine Nonrheumatic aortic valve stenosis 1 Occurrences starting 01/08/2024 until 02/06/2025 [facility] Comment on above: 1 Occurrences starting 01/08/2024 until 02/06/2025 End: 02-06-2025 SPIROMETRY BASELINE ONLY SPIROMETRY BASELINE ONLY PFT Routine Nonrheumatic aortic valve stenosis 1 Occurrences starting 01/08/2024 until 02/06/2025 [facility] Work Phone: Comment on above: 1 Occurrences starting 01/08/2024 until 02/06/2025 SPIROMETRY BASELINE ONLY SPIROME TRY BASELINE ONLY PFT Routine Nonrheumatic aortic valve stenosis 03/25/2024 9:28 AM EST [facility] Work Phone: Total protein measurement [facility] Urea nitrogen [Mass/volume] in Serum or Plasma [facility] Urea nitrogen [Mass/volume] in Serum or Plasma [facility] Urea nitrogen [Mass/volume] in Serum or Plasma [facility] Urea nitrogen [Mass/volume] in Serum or Plasma [facility] Urea nitrogen [Mass/volume] in Serum or Plasma [facility] Urinalysis, blood, qualitative [facility] Urine dipstick for glucose [facility] Urine dipstick for leukocyte esterase [facility] Urine dipstick for nitrite [facility] Urine dipstick for protein [facility] Urine examination [facility] Urine microscopy: epithelial cells [facility] Urine microscopy: epithelial cells [facility] Urine microscopy: re d cells [facility] Urine Microscopy: wh ite cells [facility] Urobilinogen [Presen ce] in Urine [facility] End: 07-09-2024 US Lower extremity vein US LEG VEIN DVT UNL VAS LAB Vascular Lab STAT Acute pain of right knee Pain and swelling of right lower leg 1 Occurrences starting 07/10/2023 until 07/09/2024 [facility] Work Phone: Comment on above: 1 Occurrences starting 07/10/2023 until 07/09/2024 White blood cell count [facility] End: 02-06-2025 XR Chest PA and Lateral XR CHEST 2V FRONTAL/LAT Radiology Routine Nonrheumatic aortic valve stenosis 1 Occurrences starting 01/08/2024 until 02/06/2025 [facility] Comment on above: 1 Occurrences starting 01/08/2024 until 02/06/2025 End: 05-15-2025 XR Chest PA and Lateral XR CHEST 2V FRONTAL/LAT Radiology Routine Nonrheumatic aortic valve stenosis Aortic valve disorder 1 Occurrences starting 04/15/2024 until 05/15/2025 [facility] Comment on above: 1 Occurrences starting 04/15/2024 until 05/15/2025 End: 08-16-2024 XR Knee - right 4 Views XR KNEE GENERAL 4V AP BOTH/PA BOTH/LAT/MERC RIGHT Radiology Routine Right knee pain, unspecified chronicity 1 Occurrences starting 07/18/2023 until 08/16/2024 [facility] Work Phone: Comment on above: 1 Occurrences starting 07/18/2023 until 08/16/2024 End: 08-16-2024 XR Lower extremity - bilateral AP W standing XR LEG FRONTAL HIP TO ANKLE MECHANICAL AXIS Radiology Routine Right knee pain, unspecified chronicity 1 Occurrences starting 07/18/2023 until 08/16/2024 [facility] Comment on above: 1 Occurrences starting 07/18/2023 until 08/16/2024 [facility] Immunizations Immunization Date Immunization Notes Care Provider [facility] 11-22-2023 influenza, high dose seasonal, preservative-free Geno Hart MD Work Phone: [facility] 11-22-2023 influenza virus vacc ine, unspecified formulation Geno Hart MD Work Phone: [facility] 08-01-2023 respiratory syncytia l virus (RSV) vaccine, adjuvanted (AREXVY) Ilda Miller RN Work Phone: [facility] 08-01-2023 zoster vaccine recombinant Claudine Durán MD Work Phone: [facility] 01-04-2023 COVID-19 vaccine, ag e 12+ yr, season (PFIZER-BIONTECH) Jimbo Swanson APRN.[address] [employer] Work Phone: [facility] Work Phone: 10-27-2022 influenza (HD-IIV4) vaccine, age 65+ yr, high dose, quadrivalent, PF (FLUZONE HIGH-DOSE) Jimbo Swanson APRN.[address] [facility] Work Phone: [facility] Work Phone: 10-27-2022 influenza virus vacc ine, unspecified formulation [facility] 11-18-2021 influenza, high dose seasonal, preservative-free Ilda Miller RN Work Phone: [facility] 11-10-2021 COVID-19 booster vaccine, age 12+ yr, bivalent (PFIZER-BIONTECH) Jimbo Swanson APRN.[address] [facility] Work Phone: [facility] Work Phone: 11-10-2021 influenza, high-dose , quadrivalent vaccine (FLUZONE HIGH DOSE QUADRIVALENT) Jimbo Swanson APRN.[address] [facility] Work Phone: [facility] Work Phone: 07-11-2021 Covid (Pfizer) Dr[facility] Work Phone: [facility] 07-11-2021 COVID-19 vaccine, ag e 12+ yr (PFIZER-BIONTECH - ARIAS TOP) [facility] Work Phone: [facility] 11-21-2020 COVID-19 original vaccine, age 12+ yr, monovalent (PFIZER-BIONTECH - PURPLE TOP) Claudine Durán MD Work Phone: [facility] 11-21-2020 influenza, high dose seasonal, preservative-free Ilda Miller RN Work Phone: [facility] 11-09-2020 COVID-19 vaccine, ag e 12+ yr (PFIZER-BIONTECH - PURPLE TOP) [facility] 11-09-2020 influenza, high-dose , quadrivalent vaccine (FLUZONE HIGH DOSE QUADRIVALENT) [facility] Work Phone: 05-13-2020 COVID-19 vaccine, ag e 12+ yr (PFIZER-BIONTECH - PURPLE TOP) [facility] Work Phone: 04-22-2020 COVID-19 vaccine, ag e 12+ yr (PFIZER-BIONTECH - PURPLE TOP) [facility] Work Phone: 11-06-2019 influenza, high-dose , quadrivalent vaccine (FLUZONE HIGH DOSE QUADRIVALENT) [facility] Work Phone: 11-06-2019 tetanus and diphther ia toxoids, adsorbed, preservative free, for adult use (2 Lf of tetanus toxoid and 2 Lf of diphtheria toxoid) Dr. Claudine Durán Work Phone: [facility] 11-06-2019 tetanus and diphther ia toxoids, adsorbed, preservative free, for adult use (5 Lf of tetanus toxoid and 2 Lf of diphtheria toxoid) [facility] Work Phone: 11-03-2019 influenza, high dose seasonal, preservative-free Ilda Miller RN Work Phone: [facility] 11-28-2018 zoster vaccine recombinant [facility] 11-25-2018 influenza, high dose seasonal, preservative-free Ilda Miller RN Work Phone: [facility] 10-26-2018 Influenza, high dose seasonal Dr. Claudine Durán MD Work Phone: [facility] 10-26-2018 influenza, high dose seasonal, preservative-free [facility] 07-23-2018 zoster vaccine recombinant [facility] 11-27-2017 Influenza, high dose seasonal Dr. Claudine Durán MD Work Phone: [facility] 11-27-2017 influenza, high dose seasonal, preservative-free [facility] 02-07-2017 influenza virus vacc ine, live, attenuated, for intranasal use Ilda Miller RN Work Phone: [facility] 02-07-2017 pneumococcal polysaccharide vaccine, 23 ravi Durán MD Work Phone: [facility] 01-31-2017 Influenza, high dose seasonal Dr. Claudine Durán MD Work Phone: [facility] 01-31-2017 influenza, high dose seasonal, preservative-free [facility] 12-13-2016 pneumococcal polysaccharide vaccine, Lachelle Durán MD Work Phone: [facility] 11-28-2016 pneumococcal polysaccharide vaccine, Lachelle Durán MD Work Phone: [facility] 12-13-2015 influenza, high dose seasonal, preservative-free [facility] 11-10-2014 Influenza, high dose seasonal Dr. Claudine Durán MD Work Phone: [facility] 11-10-2014 influenza, high dose seasonal, preservative-free [facility] 03-30-2014 pneumococcal conjuga te vaccine, 13 valent [facility] 12-08-2013 influenza virus vacc ine, live, attenuated, for intranasal use Ilda Miller RN Work Phone: [facility] 12-08-2013 pneumococcal conjuga te vaccine, 7 valent Ilda Miller RN Work Phone: [facility] 12-08-2013 pneumococcal polysaccharide vaccine, 23 valrandall Durán MD Work Phone: [facility] 11-24-2013 influenza, injectabl e, quadrivalent, preservative free Dr. Claudine Durán Work Phone: [facility] 11-24-2013 influenza, seasonal, injectable [facility] 03-24-2013 pneumococcal polysaccharide vaccine, 23 valent [facility] 11-18-2012 influenza virus vacc ine, unspecified formulation [facility] Work Phone: 11-10-2011 influenza virus vacc ine, unspecified formulation [facility] 11-23-2010 influenza virus vacc ine, unspecified formulation [facility] 10-07-2009 tetanus toxoid, redu amarilis diphtheria toxoid, and acellular pertussis vaccine, adsorbed [facility] 10-29-2008 influenza virus vacc ine, unspecified formulation [facility] 01-10-2008 influenza virus vacc ine, whole virus Ilda Miller RN Work Phone: [facility] 01-10-2008 influenza, injectabl e, quadrivalent, preservative free Dr. Claudine Durán Work Phone: [facility] 07-09-2007 tuberculin skin test ; purified protein derivative solution, intradermal Jimbo Swanson [employer].[address] [employer] Work Phone: [facility] 06-24-2007 tuberculin skin test ; purified protein derivative solution, intradermal Jimbo Swanson [employer].[address] [employer] Work Phone: [facility] 09-22-1999 diphtheria and tetan us toxoids, adsorbed for pediatric use [facility] Work Phone: Payers Date Payer Category Payer Self-pay [id number] 2021 Medicare AETNA MEDICARE A ETNA MEDICARE PPO [id number] 2021-Present [phone] [address] [place] [address] PPO [id number] 2021 Medicare [employer]ETNA MEDICARE A ETNA MEDICARE PPO [id number] 2021-Present [phone] [address] [place] [address] PPO [id number] 2021 Medicare (Managed Care) [employer] [place] D[place]ARE [id number] 2021 Private Health Insurance [facility] [id number] 2011 Unknown [id number] 1945 Unknown [id number] [id number]. 668 Medicare [id number] Private Health Insurance Unknown [id number] 2.16840.1.322475.3.579.2. 462 Unknown [id number] 2.16840.1.238974.3.579.2. 462 Unknown [id number] 2.16840.1.754979.3.579.2. 462 Unknown [id number] 2.16840.1.483089.3.579.2. 462 Unknown [id number] 2.16840.1.207136.3.579.2. 462 Unknown [id number] 2.16.840.1.318958.3.579.2. 462 Unknown [id number] 2.16.840.1.100754.3.579.2. 462 Unknown [id number] 2.16.840.1.854741.3.579.2. 462 Unknown [id number] 2.16840.1.322260.3.579.2. 462 Unknown [id number] 2.16.840.1.758645.3.579.2. 462 Unknown [id number] 2.840.1.295950.3.579.2. 462 Unknown [id number] 2.840.1.676885.3.579.2. 462 Unknown [id number] 2.840.1.373829.3.579.2. 462 Unknown [id number] 2.840.1.963046.3.579.2. 462 Unknown [id number] 2.840.1.051701.3.579.2. 462 Unknown [id number] 2.840.1.479652.3.579.2. 462 Unknown [id number] 2.840.1.324454.3.579.2. 462 Unknown [id number] 2.840.1.673992.3.579.2. 462 Unknown [id number] 2.840.1.434854.3.579.2. 462 Unknown [id number] 2.840.1.193497.3.579.2. 462 Unknown [id number] 2.840.1.877742.3.579.2. 462 Unknown [id number] 2.840.1.983832.3.579.2. 462 Unknown [id number] 2.840.1.310870.3.579.2. 462 Unknown [id number] 2.16.840.1.793149.3.579.2. 462 Unknown [id number] 2.16.840.1.295016.3.579.2. 462 Unknown [id number] 2.16.840.1.783092.3.579.2. 462 Unknown [id number] 2.16.840.1.164856.3.579.2. 462 Unknown [id number] 2.16.840.1.173001.3.579.2. 462 Unknown [id number] 2.16.840.1.537996.3.579.2. 462 Unknown [id number] 2.16.840.1.416893.3.579.2. 462 Unknown [id number] 2.16.840.1.335739.3.579.2. 462 Unknown [id number] 2.16.840.1.835881.3.579.2. 462 Unknown [id number] 2.16.840.1.425187.3.579.2. 462 Unknown [id number] 2.16.840.1.738523.3.579.2. 462 Social History Date Type Detail Facility Start: 08-28-2019 End: 10-11-2023 Tobacco smoking status NHIS Ex-smoker [facility] Start: 02-19-1979 End: 02-19-1989 History of tobacco use Current smoker [facility] Start: 02-19-1979 End: 02-19-1989 History of tobacco use Cigarette Smoker [facility] Start: 05-03-2021 End: 07-22-2024 Alcohol intake Current drinker of alcohol (finding) [facility] Start: 11-28-2019 End: 03-06-2022 History SDOH Alcohol Frequency 2 [facility] Start: 11-28-2019 End: 03-06-2022 History SDOH Alcohol Std Drinks 1 [facility] Start: 03-31-2019 End: 03-06-2022 History SDOH Social Connections [facility] 3 [facility] Start: 03-31-2019 End: 03-06-2022 History SDOH Social Connections [facility] 4 [facility] Start: 07-28-2019 End: 03-06-2022 History SDOH Physical Activity DPW 5 [facility] Start: 03-31-2019 Education 18 [facility] Start: 08-28-2019 End: 11-10-2021 Tobacco Comment Late heavy smoker. [facility] Start: 1945 Sex Assigned At Female [facility] Start: 05-02-2021 End: 12-31-2021 Exposure to SARS-CoV-2 (event) Not sure [facility] Work Phone: Start: 12-11-2017 End: 04-05-2023 Tobacco smoking status KSIS Unknown if ever smoked [facility] Start: 08-28-2019 End: 06-22-2022 Cigarettes smoked current (pack per day) - Reported 1 [facility] Start: 08-28-2019 End: 10-11-2023 Tobacco use and exposure Smokeless tobacco non-user [facility] Start: 03-06-2022 End: 06-22-2022 Social connection and isolation panel [facility] Do you belong to any clubs or organizations such as taoism groups, unions, fraternal or athletic groups, or school groups? Yes [facility] Are you now , , , , never or living with a partner? [facility] How often to you hav e a drink containing alcohol? Monthly or less [facility] How many standard dr inks containing alcohol do you have on a typical day? 1 or 2 [facility] How often do you hav e 6 or more drinks on 1 occasion? Never [facility] Start: 01-21-2012 How hard is it for you to pay for the very basics like food, housing, medical care, and heating Not hard at all [facility] Do you feel stress - tense, restless, nervous, or anxious, or unable to sleep at night because your mind is troubled all the time - these days [OSQ] Not at all [facility] (I/We) worried eileen er (my/our) food would run out before (I/we) got money to buy more. Never true [facility] In the past 12 month s, was there a time when you were not able to pay the mortgage or rent on time? No [facility] Start: 03-04-2019 Gender identity Identifies as female gender (finding) [facility] Start: 03-04-2019 Sexual orientation Heterosexual (finding) [facility] Do you feel stress - tense, restless, nervous, or anxious, or unable to sleep at night because your mind is troubled all the time - these days [OSQ] To some extent [facility] How hard is it for y ou to pay for the very basics like food, housing, medical care, and heating Not very hard [facility] Start: 2024 Sex Female (finding) [facility] Medical Equipment Procedure Code Equipment Code Equipment Origin al Text Equipment Identifier Dates Navitor With Radiopaque Markers, 25mm - [id number] Start: 05-02-2024 Goals Date Patient Goal [...] Assessment Result Facility 08-27-2024 Functional status Ambulates [facility] Work Phone: 08-23-2024 Functional status Up ad rupal [facility] Work Phone: 05-03-2024 Are you deaf, or do you have serious difficulty hearing No 05/03/2024 11:03 AM Doreen Kohler, PAULA No [facility] 05-03-2024 Are you blind, or do you have serious difficulty seeing, even when wearing glasses No 05/03/2024 11:03 AM Doreen Kohler, PAULA No [facility] 05-03-2024 Do you have serious difficulty walking or climbing stairs No 05/03/2024 11:03 AM Doreen Kohler, PAULA No [facility] 05-03-2024 Do you have difficul ty dressing or bathing No 05/03/2024 11:03 AM Doreen Kohler, PAULA No [facility] 05-03-2024 Because of a physica l, mental, or emotional condition, do you have difficulty doing errands alone such as visiting a physician's office or shopping No 05/03/2024 11:03 AM Doreen Kohler, PAULA No [facility] 03-24-2024 Are you deaf, or do you have serious difficulty hearing No 03/24/2024 3:46 PM Karl Browne RN No [facility] 03-24-2024 Are you blind, or do you have serious difficulty seeing, even when wearing glasses No 03/24/2024 3:46 PM Karl Browne RN No [facility] 03-24-2024 Do you have serious difficulty walking or climbing stairs No 03/24/2024 3:46 PM Karl Browne RN No [facility] 03-24-2024 Do you have difficul ty dressing or bathing No 03/24/2024 3:46 PM Karl Browne RN No [facility] 03-24-2024 Because of a physica l, mental, or emotional condition, do you have difficulty doing errands alone such as visiting a physician's office or shopping No 03/24/2024 3:46 PM Karl Browne RN No [facility] 04-30-2023 Functional status Ambulates;Bedr est;Bathro om [facility] Work Phone: 04-16-2023 Functional status Ambulates [facility] Work Phone: 04-05-2023 Functional status Ambulates;Bath room [facility] Work Phone: 03-27-2023 Functional status Up ad rupal [facility] Work Phone: Mental Status Date Assessment Result Facility 08-27-2024 Cognitive function Voice/Name [facility] Work Phone: 08-23-2024 Cognitive function Voice/Name [facility] Work Phone: 05-03-2024 Because of a physica l, mental, or emotional condition, do you have serious difficulty concentrating, remembering, or making decisions No 05/03/2024 11:03 AM Doreen Kohler RN No [facility] 03-24-2024 Because of a physica l, mental, or emotional condition, do you have serious difficulty concentrating, remembering, or making decisions No 03/24/2024 3:46 PM Karl Browne RN No [facility] 04-30-2023 Cognitive function Voice/Name [facility] Work Phone: 04-24-2023 Cognitive function Appropriate [facility] Work Phone: 04-16-2023 Cognitive function Voice/Name;Touch/Shaki ng [facility] Work Phone: 04-05-2023 Cognitive function Voice/Name [facility] Work Phone: 03-31-2023 Cognitive function Level Of Cons ciousness Awake;Alert;Appropriate;Fol lows Commands [facility] Work Phone: 03-27-2023 Cognitive function Appropriate;Cooperativ e [facility] Work Phone: 03-26-2023 Cognitive function Voice/Name [facility] Work Phone: Clinical Notes 03-08-2018 to 10-24-2024 Telephone Encounter - Muna Porter RN - 10/24/2024 4:02 PM EDTTelephone Encounter - Muna Porter RN - 10/24/2024 4:02 PM EDTPatient Claudine Sparrow MD - 10/24/2024 1:31 PM EDT Note Date & Type Note Facility 10-24-2024 Telephone encounter Note Called and left a detailed voicemail notifying Misbah PT with [facility] of providers message. Clinic phone number was left in case he had any questions. Muna Porter RN [facility] 10-24-2024 Miscellaneous Notes Called and left a detailed voicemail notifying Misbah PT with [facility] of providers message. Clinic phone number was left in case he had any questions. Muna Porter RN OK, please let him know Misbah PT with [facility] called in asking for verbal orders for OT. He would like them to evaluate the Pt for upper extremity strength and ADLs. His VM is confidential and you can leave a VM. Muna Porter, RN documented in this encounter [facility] 10-24-2024 Telephone encounter Note OK, please let him know [facility] 10-24-2024 Instructions Claudine Durán MD - 10/24/2024 2:20 PM EDT - Refill your warfarin (Coumadin) 6 mg daily. A 90-day supply of 5 mg and 1 mg tablets with refills has been sent to [facility]. - Refill your methotrexate: take 4 tablets every Sunday. A 60-tablet supply with refills has been sent to [facility]. - Schedule a Reclast (zoledronic acid) infusion to resume osteoporosis therapy. - Continue your current gabapentin dose (no change). - Use your oxycodone sparingly for breakthrough pain, as needed per your existing prescription. - Arrange a colonoscopy this year for surveillance of the polyp found last year. - Begin home occupational therapy for your arm to improve strength and functional use. documented in this encounter [facility] 10-24-2024 History of Presen t illness Narrative Images from the original note were not included. Subjective Haydee Bustamante is a 79 year old female. HPI SUBJECTIVE: Haydee Bustamante is a 79-year-old female with a history of a left radial fracture, shingles, and chronic back pain, presenting for evaluation following a recent fall and head injury. Haydee reports a recent fall at home, during which she hit her head on the floor. She was subsequently hospitalized at [facility]. She sustained a skin tear on her arm during the fall, which she managed with a band-aid. She also reports a recent fall at the library, resulting in a sore thumb and bruising on her forearm. She denies any known reason for the fall at the library. Haydee has a history of a left radial fracture from a previous fall at home, during which she also hit her head. She did not call for help immediately after the fall and spent the night on the floor before seeking assistance. She reports persistent pain in her arm, which is currently in a brace. She also reports chronic back pain, which she manages with Tylenol and oxycodone as needed. She has a prescription for oxycodone at home, which she uses sparingly. Haydee has a history of shingles, with lesions located on her back. She reports that the lesions have scabbed over and are healing. She completed a course of antiviral medication for the shingles. She also reports chronic pain in her left leg, for which she takes gabapentin. She denies any current pain in her right leg. Haydee is currently receiving home health care, including physical therapy. She reports difficulty with activities of daily living, such as getting up from a chair and taking a shower. She also reports difficulty with mobility due to her arm brace and chronic pain. She expresses frustration with the frequency of home health visits and the lack of occupational therapy. Haydee has a history of a discectomy and laminectomy at the [facility]. She also has a history of gastrointestinal bleeding and requires a colonoscopy this year. She is currently taking warfarin and methotrexate, and reports that her INR was low recently, requiring an increase in her warfarin dose to 6 mg daily. She also reports a cracked crown on her molar, which requires dental treatment. Haydee lives alone and has a supportive network of friends and neighbors who assist her with daily activities and transportation. She expresses a desire to maintain her independence and continue participating in social activities, such as attending taoism and theater performances. PAST MEDICAL HISTORY Diagnosis Date Anemia Bone [...] positive rheumatoid factor (HCC) 03/07/2015 Dr. Hurley ([facility]) Tricuspid regurgitation Current Outpatient Medications Medication Sig acetaminophen (TYLENOL) 500 mg tablet three times a day. clindamycin (CLEOCIN) 300 mg capsule one time only. ferrous sulfate 325 mg (65 mg iron) tablet once daily. potassium chloride ER (KLOR-CON M20) 20 mEq tablet Take 1 tablet by mouth two times a day. METOPROLOL SUCCINATE ORAL Take 25 mg by [...] Puff as instructed two times a day. sulfaSALAzine EC (AZULFIDINE EN) 500 mg EC tablet Take 1,000 mg by mouth two times a day. diclofenac (VOLTAREN) 1 % topical gel Apply 2 g to affected area four times daily. Both knees FOLIC ACID ORAL Take by mouth. vit A,C,W-Jbay-Shygji (OCUVITE PRESERVISION) 2,148 mcg-113 mg-45 mg-17.4mg tab Take 2 tablets by mouth daily with breakfast. Cholecalciferol, Vitamin D3, 1,000 unit ORAL Cap Take 1 capsule by mouth once daily. omega-3 fatty acids/vitamin e(FISH OIL 1,000 MG CAP) Take one(1) capsule daily. THERAPEUTIC MULTIVITAMIN TAB Take one(1) tablet daily. warfarin (COUMADIN) 5 mg tablet Take 1 tablet by mouth once daily. or as directed with 1mg pill prescription based on INRs warfarin (COUMADIN) 1 mg tablet Take 6 mg daily (take 1mg with 5mg pills); adjust dose as indicated by INRs [START ON 10/25/2024] methotrexate 2.5 mg tablet Take 4 tablets by mouth every Sunday. No current facility-administered medications for this visit. Review of Systems Objective BP 124/62 Pulse 81 Resp 16 Wt 58.3 kg (128 lb 8.5 oz) SpO2 99% BMI 23.51 kg/m Last 5 Encounter Wt Readings: Date: Wt: 10/24/2024 58.3 kg (128 lb 8.5 oz) 07/22/2024 58.7 kg (129 lb 6.4 oz) 05/20/2024 59.1 kg (130 lb 4.7 oz) 04/30/2024 59.4 kg (131 lb) 04/21/2024 61 kg (134 lb 7.7 oz) No waist measurement recorded Estimated body mass index is 23.51 kg/m as calculated from the following: Height as of 07/22/24: 157.5 cm (5' 2). Weight as of this encounter: 58.3 kg (128 lb 8.5 oz). Last 5 Encounter BP Readings: Date: BP: 10/24/2024 124/62 07/22/2024 140/65 07/08/2024 124/80 05/20/2024 113/65 05/05/2024 139/71 Physical Exam Constitutional: Appearance: Normal appearance. HENT: Head: Normocephalic. Eyes: Conjunctiva/sclera: Conjunctivae normal. Cardiovascular: Rate and Rhythm: Normal rate and regular rhythm. Heart sounds: Normal heart sounds. Pulmonary: Effort: Pulmonary effort is normal. Breath sounds: Normal breath sounds. Musculoskeletal: Right lower leg: No edema. Left lower leg: No edema. Skin: General: Skin is warm and dry. Comments: Rash lower back and some around to side and front. No new blisters. Some crusting on lower back. Redness noted. No weeping Neurological: General: No focal deficit present. Mental Status: She is alert and oriented to person, place, and time. Psychiatric: Mood and Affect: Mood normal. Behavior: Behavior normal. Thought Content: Thought content normal. Judgment: Judgment normal. # Herpes zoster without complication (B02.9) - Lesions on back are scabbed over and appear to be healing; pain is manageable with current gabapentin regimen. - Completed one course of antiviral therapy. - Continue current management; no changes to medication regimen at this time. # Skin tear of left upper arm without complication, initial encounter (S41.112A) - Skin tear on left upper arm is healing; advised to keep covered with a bandage and avoid moisture. # Contusion of right thumb without damage to nail, subsequent encounter (S60.011D) # Contusion of right upper extremity, subsequent encounter (S40.021D) - Right thumb and upper extremity contusions secondary to recent falls; continue conservative management. # Chronic anticoagulation (Z79.01) - Continue warfarin 6 mg daily. - Refilled warfarin 1 mg and 5 mg tablets. # Closed fracture of left wrist, sequela (S62.102S) - Healing with residual pain; continue brace use as needed. - Awaiting initiation of OT for further rehabilitation. Claudine Durán MD Recording using [employer] software for draft documentation of the visit was discussed with the patient/authorized medical service representative; all questions welcomed and answered. Patient/authorized medical service representative agreed to proceed documented in this encounter [facility] 10-23-2024 Telephone encounter Note Misbah PT with [facility] called in asking for verbal orders for OT. He would like them to evaluate the Pt for upper extremity strength and ADLs. His VM is confidential and you can leave a VM. Muna Porter RN [facility] 10-19-2024 Telephone encounter Note Received page from Home Care Nurse for this patient. Pt was reportedly discharged from [facility] a few days ago and there was a discrepancy between the discharge medications. Discharge paperwork indicated that she was taking sulfasalzine 500 mg twice daily while patient reported 1000 mg twice daily. Clarified that the records we have in our system indicate she should be taking 1000 mg twice daily. Home care nurse then proceeded to tell me that patient fell on 10/17/24 while at the library and injured her left hand and thumb. Pt reportedly was seen by home care nurse yesterday and had significant bruising and poor mobility of thumb joint. Nurse reportedly advised ED eval which was refused. I recommended nurse contact patient and again recommend ED evaluation due to possible complications (e.g. scaphoid fracture). If pt has questions about this recommendation, Dr. Durán's office number was provided and she can speak with [facility] nurse voice data communications engineer to relay same recommendation. Dr. Russ Velasuqez DO [facility] Work Phone: 10-19-2024 Miscellaneous Notes Received page from Home Care Nurse for this patient. Pt was reportedly discharged from [facility] a few days ago and there was a discrepancy between the discharge medications. Discharge paperwork indicated that she was taking sulfasalzine 500 mg twice daily while patient reported 1000 mg twice daily. Clarified that the records we have in our system indicate she should be taking 1000 mg twice daily. Home care nurse then proceeded to tell me that patient fell on 10/17/24 while at the library and injured her left hand and thumb. Pt reportedly was seen by home care nurse yesterday and had significant bruising and poor mobility of thumb joint. Nurse reportedly advised ED eval which was refused. I recommended nurse contact patient and again recommend ED evaluation due to possible complications (e.g. scaphoid fracture). If pt has questions about this recommendation, Dr. Durán's office number was provided and she can speak with [facility] nurse voice data communications engineer to relay same recommendation. Dr. Russ Velasquez DO documented in this encounter [facility] 10-19-2024 Radiology Diagnostic study note [facility] 10-19-2024 Radiology Diagnostic study note [facility] 10-16-2024 Telephone encounter Note Meseret from [facility] returned call and went over notes below from Jimbo Swanson DATABASE ADMIN with understanding. [facility] 10-16-2024 Miscellaneous Notes Meseret from [facility] returned call and went over notes below from Jimbo Swanson DATABASE ADMIN with understanding. Yes, please let home health care know Meseret from [facility] calling patient is discharging from SNF today to home. Received orders for [facility], PT/OT, patient has fracture left radius, had shingles. Asking if PCP would follow patient and sign orders? Can leave message secure voicemail. Please advise documented in this encounter [facility] 10-16-2024 Telephone encounter Note Yes, please let home health care know [facility] 10-16-2024 Telephone encounter Note Meseret from [facility] calling patient is discharging from SNF today to home. Received orders for [facility], PT/OT, patient has fracture left radius, had shingles. Asking if PCP would follow patient and sign orders? Can leave message secure voicemail. Please advise [facility] 08-27-2024 Discharge summary Note Date/Time August 27, 2024 12:09pm [facility] Medical Records Department [address] [place] [address] Transfer to Extended Care MR#: [id number] Acct: [id number] Name: HAYDEE BUSTAMANTE Rep #:[id number] : 1945 79 From: Jasmyn Chan DO PCP: Dr. Claudine Durán MD Status:AD Doretha ADAIR Certification of patient admission REQUIRED AT TIME OF ADMISSION. I CERTIFY THAT POST-HOSPITAL ECF SERVICES ARE REQUIRED TO BE GIVEN ON AN IN-PATIENT BASIS BECAUSE OF THE ABOVE NAMED PATIENT'S NEED FOR DETENTION CARE ON A CONTINUING BASIS FOR THE [...] PO QDAY Qty: 30 11RF Discontinued omega 3-ydj-thj-fish oil [Fish Oil] 1,200 (144-216) mg capsule 1 cap PO DAILY Patient Comments: ON HOLD FOR COLONOSCOPY Referrals / Follow Up: Claudine Durán MD [Primary Care Provider] - Burak Amanda MD [Med Staff - Active Staff] - See Referral Note (in one week-call to schedule appointment) Disposition Disposition (needs filled in before D/C Order can be placed): [facility] Facility 08/27/24 1209 <Electronically signed by Jasmyn Chan DO> Cosigner Signature (if applicable): CC: Dr. Claudine Durán MD; Dr. Erasmo House MD; Dr. Burak Amanda MD ~ [facility] Work Phone: 1(445) 692-818107-09-2025 Hospital Discharge instructionsAdditional Instructions PT/INR daily times 3 days starting 08/28/24, maintain INR 2-3 Date of Discharge: 08/27/24[facility] Work Phone: 1(771) 197-198907-09-2025 Discharge summary [facility] Medical Records Department [address] [place] [address] Transfer to [facility] MR#: [id number] Acct: [id number] Name: HAYDEE BUSTAMANTE Rep #:[id number] : 1945 79 From: Jasmyn Chan DO PCP: Dr. Claudine Durán MD Status:[facility] Certification of patient admission REQUIRED AT TIME OF ADMISSION. I CERTIFY THAT POST-HOSPITAL ECF SERVICES ARE REQUIRED TO BE GIVEN ON AN IN-PATIENT BASIS BECAUSE OF THE ABOVE NAMED PATIENT'S NEED FOR DETENTION CARE ON A CONTINUING BASIS FOR THE CONDITION(S) FOR WHICH HE/SHE WAS RECEIVING IN-PATIENT HOSPITAL SERVICES PRIOR TO HIS/HER TRANSFER TO THE [facility]. 08/27/24 1209 Diet Diet Order/Speech Therapy: INPATIENT [...] PO QDAY Qty: 30 11RF Discontinued omega 2-xpp-qsf-fish oil [Fish Oil] 1,200 (144-216) mg capsule 1 cap PO DAILY Patient Comments: ON HOLD FOR COLONOSCOPY Referrals / Follow Up: Claudine Durán MD [Primary Care Provider] - Burak Amanda MD [Med Staff - Active Staff] - See Referral Note (in one week- call to schedule appointment) Disposition Disposition (needs filled in before D/C Order can be placed): Retirement Facility 08/27/24 1209 Cosigner Signature (if applicable): CC: Dr. Claudine Durán MD; Dr. Erasmo House MD; Dr. Burak Amanda MD ~ [facility]07-09-2025 [facility] Medical Records Department [address] [place] [address] Discharge Summary 08/27/24 1209 MR#: [id number] Acct: [id number] Name: HAYDEE BUSTAMANTE Rep #: [id number] : 1945 79 From: Jasmyn Chan DO PCP: Dr. Claudine Durán MD Status:DIS ADAIR Location: [place] [id number] Providers Date of Admission: 08/23/24 Date of [...] 1 tab PO DAILY supplement 03/19/23 vitamins A,C,D-xnri-krdokv 2,148 mcg-113 mg-45 mg-17.4 mg tablet (PreserVision [...] was seen in the emergency room at [facility] for evaluation of injuries sustained when [...] to get out of them or an mailing machine assistant. Patient finally used the telephone after she scooted herself around on the floor and called the squad to bring her in the hospital. Labs obtain urgency room included a CBC which was remarkable for hemoglobin of 11.3, INR was 1.2, chemistry profile was abnormal for BUN of 22. W (more content not included)...[facility] 08-26-2024 Progress note Author Jasmyn Chan [facility] Note Date/Time August 26, 2024 4:55p m [facility] Medical Records Department [address] [place] [address] Progress Note - Hospitalist 08/26/24 1654 MR#: [id number] Acct: [id number] Name: HAYDEE BUSTAMANTE Rep #:[id number] : 1945 79 From: Jasmyn Chan DO PCP: Dr. Claudine Durán MD Status:AD M ADAIR Location: [place] [address] Reason for Visit Reason for Visit: Diagnoses Other malaise (08/23/24) Unspecified injury of head, initial encounter (08/23/24) Unspecified fracture of the lower end of left radius, initial encounter for closed fracture (08/23/24) Subjective Subjective Patient was seen and examined today, I removed her from telemetry-she did not appear to be tachycardic. We are currently awaiting approval for her to go to [facility] for short-term skilled services. Objective Data Objective [...] 35 minutes Charges/Coding Visit Charges Inpatient E&M: 00793 Subs Hosp L2 08/26/241654 <Electronically signed by Jasmyn Chan DO> Cosigner Signature (if applicable): CC: ~ Signed [facility] Work Phone: 1(669) 360-322907-08-2025 Progress note [facility] Medical Records Department [address] [place] [address] Progress Note - Hospitalist 08/26/241653 MR#: [id number] Acct: [id number] Name: HAYDEE BUSTAMANTE Rep #:[id number] : 1945 79 From: Jasmyn Chan DO PCP: Dr. Claudine Durán MD Status:AD M ADAIR Location: [facility] [id number] Reason for Visit Reason for Visit: Diagnoses Other malaise (08/23/24) Unspecified injury of head, initial encounter (08/23/24) Unspecified fracture of the lower end of left radius, initial encounter for closed fracture (08/23/24) Subjective Subjective Patient was seen and examined today, I removed her from telemetry-she did not appear to be tachycardic. We are currently awaiting approval for her to go to [facility] for short-term skilled services. Objective Data Objective [...] 240 / 240 Output Total 0 / 0 1350 / 1350 1000 / 1000 Balance [...] 35 minutes Charges/Coding Visit Charges Inpatient E&M: 20622 Subs Hosp L2 08/26/24 8415 Cosigner Signature (if applicable): CC: ~ Signed [facility]07-07-2025 Progress note Author Jasmyn Nagymadison hospitalst[facility] Note Date/Time August 25, 2024 6:26p m [facility] Medical Records Department [address] [place] [address] Progress Note - Hospitalist 08/25/24 1819 MR#: [id number] Acct: [id number] Name: HAYDEE BUSTAMANTE Rep #:[id number] : 1945 79 From: Jasmyn Chan DO PCP: Dr. Claudine Durán MD Status:AD Doretha BORRERO [id number] Reason for Visit Reason for Visit: Diagnoses [...] 35 minutes Charges/Coding Visit Charges Inpatient E&M: 32538 Subs Hosp L2 08/25/24 1826 <Electronically signed by Jasmyn Chan DO> Cosigner Signature (if applicable): CC: ~ Signed [facility] Work Phone: 1(149) 724-579407-07-2025 Progress note [facility] Medical Records Department [address] [place] [address] Progress Note - Hospitalist 08/25/24 181 MR#: [id number] Acct: [id number] Name: HAYDEE BUSTAMANTE Rep #:[id number] : 1945 79 From: Jasmyn Chan DO PCP: Dr. Claudine Durán MD Status:AD M ADAIR Location: [place] 010142-1 Reason for Visit Reason for Visit: Diagnoses [...] 35 minutes Charges/Coding Visit Charges Inpatient E&M: 21823 Subs Hosp L2 08/25/24 1826 Cosigner Signature (if applicable): CC: ~ Signed [facility]07-06-2025 Progress note Author Erasmo House [facility] Note Date/Time August 24, 2024 1:25p m [facility] Medical Records Department [address] [place] [address] Progress Note - Hospitalist 08/24/24 0849 MR#: [id number] Acct: [id number] Name: HAYDEE BUSTAMANTE Rep #:[id number] : 1945 79 From: Erasmo Castañeda PCP: Dr. Claudine Durán MD Status:LUKE BORRERO Location: [address] Reason for Visit Reason for Visit: Diagnoses [...] (Auto) 69.1, Lymph % (Auto) 15.8 L, Door % (Auto) 12.6 H, Eos % (Auto) [...] radius/Colles' fracture: Patient is being admitted on [facility] floor. 3 views ofx-ray left wrist x-ray [...] the wrist. Follow-up in 2 weeks in [place] [facility]. 2. Closed head injury without concussion [...] shock if needed Total time spent in uyig-bm-pyra encounter in discussion of advanced directive 17 minutes. Laboratory Results 08/23/24 07:45: WBC 7.9, RBC 3.52 L, Hgb 11.3 L, Hct 33.9 L, MCV 96.3, MCH 32.1 H, MCHC 33.3, RDW Std Deviation 58.6 H, RDW Coeff of Catarino 17.0 H, Plt Count 182, MPV 10.9, Immature Gran % (Auto) 0.500, Neut % (Auto) 82.3 H, Lymph % (Auto) 8.1L, Door % (Auto) 8.6, Eos % (Auto) 0.1, [...] (Auto) 69.1, Lymph % (Auto) 15.8 L, Door % (Auto) 12.6 H, Eos % (Auto) [...] distal radius with intra-articular extension. Reading Location: [facility] Brain CT 08/23/24 08:06 IMPRESSION: 1. Generalized brain atrophy. 2. Small vessel ischemic/degenerative changes. 3. No acute intracranial hemorrhage, midline shift or mass effect. If symptoms persist, further evaluation with MRI is recommended. Reading Location: [facility] Charges/Coding Visit Charges Inpatient E&M: 66544 Subs Hosp L2 08/24/24 1325 <Electronically signed by Erasmo House MD> Cosigner Signature (if applicable): CC: ~ Signed [facility] Work Phone: 1(148) 393-296307-06-2025 Progress note [facility] Medical Records Department [address] [place] [address] Progress Note - Hospitalist 08/24/24 0849 MR#: [id number] Acct: [id number] Name: HAYDEE BUSTAMANTE Rep #:[id number] : 1945 79 From: Erasmo Castañeda PCP: Dr. Claudine Durán MD Status:LUKE BORRERO Location: MS3 [id number] Reason for Visit Reason for Visit: Diagnoses [...] (Auto) 69.1, Lymph % (Auto) 15.8 L, Door % (Auto) 12.6 H, Eos % (Auto) [...] the wrist. Follow-up in 2 weeks in [place] [facility]. 2. Closed head injury without concussion [...] shock if needed Total time spent in jdci-do-gccs encounter in discussion of advanced directive 17 minutes. Laboratory Results 08/23/24 07:45: WBC 7.9, RBC 3.52 L, Hgb 11.3 L, Hct 33.9 L, MCV 96.3, MCH 32.1 H, MCHC 33.3, RDW Std Deviation 58.6 H, RDW Coeff of Catarino 17.0 H, Plt Count 182, MPV 10.9, Immature Gran % (Auto) 0.500,Neut % (Auto) 82.3 H, Lymph % (Auto) 8.1L, Door % (Auto) 8.6, Eos % (Auto) 0.1, Baso % (Auto) 0.4, Absolute Neuts (auto)6.5, Absolute Lymphs (auto) 0.64 L, Nucleated RBC % 0, PT 15.5 H, INR 1.2, Sodium 140, Potassium 3.9, Chloride 104, Carbon Dioxide 22.1, Anion Gap 14, BUN 22 H, Creatinine 0.63 L, Estim Creat Clear Calc 48.72 L, Est GFR (MDRD) Non-Af 91, BUN/Creatinine Ratio 34.8 H, Xyfcmdh351 H, Calcium 9.2, Total Creatine Kinase 128 [...] (Auto) 69.1, Lymph % (Auto) 15.8 L, Door % (Auto) 12.6 H, Eos % (Auto) 1.5, Baso % (Auto) 0.6, Absolute Neuts (auto) 3.7, Absolute Lymphs (auto) 0.85, Nucleated RBC % 0, PT 16.3 H, INR 1.3, Yselmg607, Potassium 3.9, Chloride 105, Carbon Dioxide 21.9, Anion Gap 13, BUN 15, Creatinine 0.65 L, Estim Creat Clear Calc 48.72 L, Est GFR (MDRD) Non-Af 91, BUN/Creatinine Ratio 22.5 H, Glucose 90, Calcium 9.0 Clinical Impression(s) from Imaging Studies Wrist X-Ray 08/23/24 07:31 IMPRESSION: Comminuted impacted fracture of the distal radius with intra-articular extension. Reading Location: [facility] Brain CT 08/23/24 08:06 IMPRESSION: 1. Generalized brain atrophy. 2. Small vessel ischemic/degenerative changes. 3. No acute intracranial hemorrhage, midline shift or mass effect. If symptoms persist, further evaluation with MRI is recommended. Reading Location: [facility] Charges/Coding Visit Charges Inpatient E&M: 14659 Subs Hosp L2 08/24/24 1325 Cosigner Signature (if applicable): CC: ~ Signed [facility]07-05-2025 Consult note Author Burak Vasiliy [facility] Note Date/Time August 23, 2024 2:01p m [facility] Medical Records Department [address] [place] [address] Consultation - Orthopedics 08/23/24 1354 MR#: [id number] Acct: [id number] Name: HAYDEE BUSTAMANTE Rep #:[id number] : 1945 79 From: Burak Castañeda PCP: Dr. Claudine Durán MD Status:AD M [facility] Location: NM3 [id number] HPI Consult Data Date of Consult: 08/23/24 [...] she was admittedfor placement and likely rehabilitation. [facility] Medical History Hypertension GERD (gastroesophageal reflux disease) [...] suppl ement 03/19/23 10/01/23 History tablet) vitamins A,C,O-hcgr-mxqjtl 2,148 2 tab PO BID eye heal [...] Rx (Voltaren Arthritis Pain) #100 grams omega 1-xhs-bnr-fish oil 1,200 mg 1 cap PO DAILY [...] (Auto) 82.3 H, Lymph % (Auto) 8.1L, Door % (Auto) 8.6, Eos % (Auto) 0.1, [...] distal radius with intra-articular extension. 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 Brain CT 08/23/24 08:06 IMPRESSION: 1. Generalized brain atrophy. 2. Small vessel ischemic/degenerative changes. 3. No acute intracranial hemorrhage, midline shift or mass effect. If symptoms persist, further evaluation with MRI is recommended. Reading Location: [facility] Assessment & Plan Assessment/Plan (1) Closed fracture [...] and direct care in that manner. [facility] Office: 08/23/24 1409 <Electronically signed by Burak Amanda MD> Cosigner Signature (if applicable): CC: Dr. Claudine Durán MD~ Signed [facility] Work Phone: 1(235) 718-845607-05-2025 Consult note [facility] Medical Records Department [address] [place] [address] Consultation - Orthopedics 08/23/24 1354 MR#: [id number] Acct: [id number] Name: HAYDEE BUSTAMANTE Rep #:[id number] : 1945 79 From: Burak Castañeda PCP: Dr. Claudine Durán MD Status:[facility] Location: [place] [address]-1 HPI Consult Data Date of Consult: 08/23/24 [...] was admittedfor placement and likely re habilitation. [facility] Medical History Hypertension GERD (gastroesophageal reflux disease) [...] suppl ement 03/19/23 10/01/23 History tablet) vitamins A,C,Z-uaui-lwrfgm 2,148 2 tab PO BID eye heal [...] Rx (Voltaren Arthritis Pain) #100 grams omega 9-swx-upk-fish oil 1,200 mg 1 cap PO DAILY [...] (Auto) 82.3 H, Lymph % (Auto) 8.1L, Door % (Auto) 8.6, Eos % (Auto) 0.1, [...] distal radius with intra-articular extension. Reading Location: [facility] Independent review of the films shows comminuted distal radius fracture with impaction and slight loss of radial height and inclination however, patient already has Luno?radial aigg-wg-spjg osteoarthritis with subchondral sclerosis additionally there is scapholunate widening appreciated. Brain CT 08/23/24 08:06 IMPRESSION: 1. Generalized brain atrophy. 2. Small vessel ischemic/degenerative changes. 3. No acute intracranial hemorrhage, midline shift or mass effect. If symptoms persist, further evaluation with MRI is recommended. Reading Location: [facility] Assessment & Plan Assessment/Plan (1) Closed fracture [...] x-rays and direct carein that manner. [facility] Office: 08/23/24 1405 Cosigner Signature (if applicable): CC: Dr. Claudine Durán MD~ Signed [facility]07-05-2025 History and physical note Author Erasmo House [facility] Note Date/Time August 23, 2024 11:12 am [facility] Medical Records Department [address] [place] [address] H&P Exam - Hospitalist 08/23/24 1023 MR#: [id number] Acct: [id number] Name: HAYDEE BUSTAMANTE Rep #:[id number] : 1945 79 From: Erasmo Castañeda PCP: Dr. Claudine Durán MD Status:LUKE BORRERO Location: [facility] DX185-5 HPI - General General Date of Admission: [...] x-ray done in the ED were reviewed. [facility] Medical History Hypertension GERD (gastroesophageal reflux disease) [...] suppl ement 03/19/23 10/01/23 History tablet) vitamins A,C,I-poen-bhtnod 2,148 2 tab PO BID eye heal [...] Rx (Voltaren Arthritis Pain) #100 grams omega 3-vhb-pmq-fish oil 1,200 mg 1 cap PO DAILY [...] (Auto) 82.3 H, Lymph % (Auto) 8.1L, Door % (Auto) 8.6, Eos % (Auto) 0.1, [...] distal radius with intra-articular extension. Reading Location: [facility] Brain CT 08/23/24 08:06 IMPRESSION: 1. Generalized brain atrophy. 2. Small vessel ischemic/degenerative changes. 3. No acute intracranial hemorrhage, midline shift or mass effect. If symptoms persist, further evaluation with MRI is recommended. Reading Location: [facility] Assessment & Plan Assessment/Plan (1) Closed fracture of distal end of left radius: (2) Closed head injury without concussion: PLAN: Plan This 72-year-old female was brought to ED when she fell down, mechanism unclear resulting into left wrist fracture. 1. Acute debility of ADL due to closed fracture of distal end of left radius/Colles' fracture: [facility] 3 views ofx-ray left wrist x-ray [...] shock if needed Total time spent in xefi-ww-wuya encounter in discussion of advanced directive 17 minutes. Laboratory Results 08/23/24 07:45: WBC 7.9, RBC 3.52 L, Hgb 11.3 L, Hct 33.9 L, MCV 96.3, MCH 32.1 H, MCHC 33.3, RDW Std Deviation 58.6 H, RDW Coeff of Catarino 17.0 H, Plt Count 182, MPV 10.9, Immature Gran % (Auto) 0.500, Neut % (Auto) 82.3 H, Lymph % (Auto) 8.1L, Door % (Auto) 8.6, Eos % (Auto) 0.1, [...] distal radius with intra-articular extension. Reading Location: [facility] Brain CT 08/23/24 08:06 IMPRESSION: 1. Generalized brain atrophy. 2. Small vessel ischemic/degenerative changes. 3. No acute intracranial hemorrhage, midline shift or mass effect. If symptoms persist, further evaluation with MRI is recommended. Reading Location: [facility] Charges/Coding Visit Charges Inpatient E&M: 74225 Init Hosp L3 Procedures Hospitalists Procedures: 05327 Advncd Care Plan 30 Min 08/23/24 1112 <Electronically signed by Erasmo House MD> Cosigner Signature (if applicable): CC: Dr. Claudine Durán MD; Dr. Erasmo House MD~ Signed [facility] Work Phone: 1(370) 663-131807-05-2025 Discharge summary Author Ron Loida [facility] Note Date/Time August 23, 2024 10:29 am [facility] Medical Records Department [address] [place] [address] Emergency Department Summary 08/23/24 MR#: [id number] Acct: [id number] Name: HAYDEE BUSTAMANTE Rep #:[id number] : 1945 79 From: Ron Mariscal MD [...] at any point in time or syncope. Atmbs-zuzb-fadnmeyq. Lives by herself. 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 She states this morning she laid [...] to if her wrist was not injured [facility] Medical History Hypertension GERD (gastroesophageal reflux [...] suppl ement 03/19/23 10/01/23 History tablet) vitamins A,C,G-zswm-uwbpoq 2,148 2 tab PO BID eye heal [...] tabs Instructions: ON HOLD FOR COLONOSCOPY omega 7-wcn-fla-fish oil 1,200 mg 1 cap PO DAILY [...] motor deficits and no sensory deficits noted [place] Coma Scale: document GCS findings Spontaneous Obeys [...] 82.3 H Lymph % (Auto) 8.1 L Door % (Auto) 8.6 Eos % (Auto) 0.1 [...] distal radius with intra-articular extension. Reading Location: [facility] Brain CT 08/23/24 08:06 IMPRESSION: 1. Generalized brain atrophy. 2. Small vessel ischemic/degenerative changes. 3. No acute intracranial hemorrhage, midline shift or mass effect. If symptoms persist, further evaluation with MRI is recommended. Reading Location: [facility] Management Discussion w/another healthcare provider: Hospitalist and Quality Assurance Qa Lab Technician (ezekiel amanda) Procedures Upper Extremity Splints Upper [...] functional status Disposition Disposition: Acute Care [facility] What to do if you have Problems For any increased pain, shortness of breath, bleeding, nausea or vomiting, chestpain, or any unexpected problems, contact your Primary Care Provider. Call [facility] ([phone]) or report to the closest Emergency Room. Call 911 if necessary. 08/23/24 1029 <Electronically signed by Ron Mariscal MD> Cosigner Signature (if applicable): CC: Dr. Claudine Durán MD ~ Signed [facility] Work Phone: 1(668) 913-833807-05-2025 Evaluation note* Diagnosis Onset Date Resolution Status Admit Date Closed fracture of distal en d of left radius inactive August 23, 2024 1 0:24am Closed head injury without concussion inactive August 23, 2024 1 0:24am Declining functional status inactive August 23, 2024 10:24am [facility] Work Phone: 1(330) 884-272807-05-2025 History and physical note [facility] Medical Records Department [address] [place] [address] H&P Exam - Hospitalist 08/23/24 1023 MR#: [id number] Acct: [id number] Name: HAYDEE BUSTAMANTE Rep #:[id number] : 1945 79 From: Erasmo Castañeda PCP: Dr. Claudine Durán MD Status:LUKE BORRERO Location: [facility] FC420-1 HPI - General General Date of Admission: [...] x-ray done in the ED were reviewed. [facility] Medical History Hypertension GERD (gastroesophageal reflux disease) [...] suppl ement 03/19/23 10/01/23 History tablet) vitamins A,C,V-mxgi-ffbwjx 2,148 2 tab PO BID eye heal [...] Rx (Voltaren Arthritis Pain) #100 grams omega 2-mse-rlw-fish oil 1,200 mg 1 cap PO DAILY [...] (Auto) 82.3 H, Lymph % (Auto) 8.1L, Door % (Auto) 8.6, Eos % (Auto) 0.1, [...] distal radius with intra-articular extension. Reading Location: [facility] Brain CT 08/23/24 08:06 IMPRESSION: 1. Generalized brain atrophy. 2. Small vessel ischemic/degenerative changes. 3. No acute intracranial hemorrhage, midline shift or mass effect. If symptoms persist, further evaluation with MRI is recommended. Reading Location: [facility] Assessment & Plan Assessment/Plan (1) Closed fracture of distal end of left radius: (2) Closed head injury without concussion: PLAN: Plan This 72-year-old female was brought to ED when she fell down, mechanism unclear resulting into leftwrist fracture. 1. Acute debility of ADL due to closed fracture of distal end of left radius/Colles' fracture: [facility] 3 views ofx-ray left wrist x-ray [...] shock if needed Total time spent in uqmf-cr-catb encounter in discussion of advanced directive 17 minutes. Laboratory Results 08/23/24 07:45: WBC 7.9, RBC 3.52 L, Hgb 11.3 L, Hct 33.9 L, MCV 96.3, MCH 32.1 H, MCHC 33.3, RDW Std Deviation 58.6 H, RDW Coeff of Catarino 17.0 H, Plt Count 182, MPV 10.9, Immature Gran % (Auto) 0.500,Neut % (Auto) 82.3 H, Lymph % (Auto) 8.1L, Door % (Auto) 8.6, Eos % (Auto) 0.1, Baso % (Auto) 0.4, Absolute Neuts (auto)6.5, Absolute Lymphs (auto) 0.64 L, Nucleated RBC % 0, PT 15.5 H, INR 1.2, Sodium 140, Potassium 3.9, Chloride 104, Carbon Dioxide 22.1, Anion Gap 14, BUN 22 H, Creatinine 0.63 L, Estim Creat Clear Calc 48.72 L, Est GFR (MDRD) Non-Af 91, BUN/Creatinine Ratio 34.8 H, Beulcxj714 H, Calcium 9.2, Total Creatine Kinase 128 Clinical Impression(s) from Imaging Studies Wrist X-Ray 08/23/24 07:31 IMPRESSION: Comminuted impacted fracture of the distal radius with intra-articular extension. Reading Location: [facility] Brain CT 08/23/24 08:06 IMPRESSION: 1. Generalized brain atrophy. 2. Small vessel ischemic/degenerative changes. 3. No acute intracranial hemorrhage, midline shift or mass effect. If symptoms persist, further evaluation with MRI is recommended. Reading Location: [facility] Charges/Coding Visit Charges Inpatient E&M: 88631 Init Hosp L3 Procedures Hospitalists Procedures: 93628 Advncd Care Plan 30 Min 08/23/24 1112 Cosigner Signature (if applicable): CC: Dr. Claudine Durán MD; Dr. Erasmo House MD~ Signed [facility]07-05-2025 Discharge summary [facility] Medical Records Department [address] [place] [address] Emergency Department Summary 08/23/24 MR#: [id number] Acct: [id number] Name: HAYDEE BUSTAMANTE Rep #:[id number] : 1945 79 From: Ron Mariscal MD [...] any point in time or sync ope. Qxtyf-auae-jddwflqi. Lives by herself. 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 She states this morning she laid [...] to if her wrist was not injured [facility] Medical History Hypertension GERD (gastroesophageal reflux [...] suppl ement 03/19/23 10/01/23 History tablet) vitamins A,C,C-zzfx-hggyfj 2,148 2 tab PO BID eye heal [...] tabs Instructions: ON HOLD FOR COLONOSCOPY omega 5-uxe-qiu-fish oil 1,200 mg 1 cap PO DAILY [...] motor deficits and no sensory deficits noted [place] Coma Scale: document GCS findings Spontaneous Obeys [...] 82.3 H Lymph % (Auto) 8.1 L Door % (Auto) 8.6 Eos % (Auto) 0.1 [...] distal radius with intra-articular extension. Reading Location: [facility] Brain CT 08/23/24 08:06 IMPRESSION: 1. Generalized brain atrophy. 2. Small vessel ischemic/degenerative changes. 3. No acute intracranial hemorrhage, midline shift or mass effect. If symptoms persist, further evaluation with MRI is recommended. Reading Location: [facility] Management Discussion w/another healthcare provider: Hospitalist and Quality Assurance Qa Lab Technician (ortho vasiliy) Procedures Upper Extremity Splints Upper Extremity Splint: Orthoglass (AP short arm, fabricated. Neurovascularly intact distally afterplacement) Splint Fabrication: Fabricated Location: Left Discharge Plan Dx/Rx/DC Orders Clinical Impression: Closed fracture of distal end of left radius, Closed head injury without concussion, Abrasion of face, Subtherapeutic international normalized ratio (INR), Fall from slip, trip, or stumble, Decliningfunctional status Disposition Disposition: Acute Care [facility] What to do if you have Problems For any increased pain, shortness of breath, bleeding, nausea or vomiting, chestpain, or any unexpected problems, contact your Primary Care Provider. Call [facility] ([phone]) or report tothe closest Emergency Room. Call 911 if necessary. 08/23/24 1029 Cosigner Signature (if applicable): CC: Dr. Claudine Durán MD ~ Signed [facility]07-05-2025 Radiology Diagnostic study note [facility] Imaging Services [address] [place] [address] [id number] Wrist min 3 Views MR#: [id number] Acct: [id number] Name: HAYDEE BUSTAMANTE Rep #: [id number] : 1945 F 79 From: Bee Herrera MD PCP: Dr. Claudine Durán MD Status: RE G ER Study:Wrist min 3 Views Date of Exam: Exam# [id number] Ordering Dr: Iain Mariscal MD EXAM: XR [...] distal radius with intra-articular extension. Reading Location: [facility] CC: Dr. Ron Mariscal MD; Dr. Claudine Durán MD ~ Science Instructor: Signed [facility]07-05-2025 Radiology Diagnostic study note [facility] Imaging Services [address] [place] [address] Brain/Head without Contrast MR#: [id number] Acct: [id number] Name: HADYEE BUSTAMANTE Rep #: [id number] : 1945 F 79 From: Bee Herrera MD PCP: Dr. Claudine Durán MD Status: RE G ER Study:Brain/Head without Contrast Date of Exa m: 08/23/24 Exam# [id number] Ordering Dr: Iain Mariscal MD EXAM: CT [...] evaluation with MRI is recommended. Reading Location: [facility] CC: Dr. Ron Mariscal MD; Dr. Claudine Durán MD ~ Science Instructor: Signed [facility]07-03-2025 History of Present illness Narrative* Michael Braxton MD - 08/21/2024 12:46 PM EDT INR low with patient who missed a dose of coumadin. Continue current regimen. Recheck INR in 1 week. * Melissa Means, PAULA - 08/21/2024 12:24 PM EDT patient had inr completed at [facility] patients inr is 1.2 (patients inr [...] FYI - results being sent to doc voice data communications engineer due to pcp and team members are [...] to the missed dose [facility] Telephone encounter Note * Telephone Encounter [...] Cintron LPN August 18, 2024 2:11 PM [facility] Miscellaneous Notes* Telephone Encounter - Geni [...] 18, 2024 2:11 PM documented in [facility] History of Present illness Narrative* Melissa Means RN - 08/06/2024 4:32 PM EDT pcp agrees with information * Melissa Means RN - 08/06/2024 12:18 PM EDT patient had inr completed at [facility] patients inr is 1.4 (patients [...] not agree with recommendation documented in this [facility]Tri[facility] History of Present illness Narrative* Jane [...] 29, 2024 10:11 AM documented in this [facility]Tri[facility] Instructions* Patient Instructions* Brissa Chester APRN.DIE PRESSER - 07/22/2024 2:32 PM EDT We discussed [...] You can follow up with a local etl architect [place] for your annual echocardiogram and routinecare. If you prefer, you can also follow up at another [facility] facility or [facility] - as long as ECHO looks good today, you can follow-up with repeat ECHO in 1 years time - If you experience new or worsening symptoms, such as shortness of breath, chest pain, or leg swelling, please contact your etl architect or our office immediately. Next steps: - Attend your echocardiogram appointment today as scheduled. - I will contact you via [employer],t with your echocardiogram and lab results once they are available. - Ensure you have a follow-up plan with a etl architect for your annual echocardiogram and routine care. Please let us know if you have any questions or concerns. Dr Saeed O: [phone] F: [phone] It was my pleasure to participate in the management of your care! Brissa Chester, MSN, PRINTED CIRCUIT BOARDS STRIPPER ETCHER-DIE PRESSER documented in this encounterTrihealth [facility]06-03-20[facility] History of Present illness Narrative* Brissa Chester APRN.CNP - 07/22/2024 1:30 PM EDT Images from the original note were not included. [facility] V[facility] Department of Cardiovascular Medicine SECTION OF INTERVENTIONAL CARDIOLOGY OUTPATIENT VISIT DATE July 22, 2024 OUTPATIENT VISIT TYPE ESTABLISHED FOLLOW UP Primary Senior Sourcing Manager: Juvencio Saeed MD Chief Complaint: Patient here [...] successful TF TAVR via 14 Fr R DAIRY NUTRITION CONSULTANT with a 25 mm Navitor at nominal [...] the initiation of metoprolol succinate by a etl architect at [facility] a few days ago. She also [...] sites with positive rheumatoid factor ([facility]) 03/07/2015 Dr. Hurley ([facility]) Tricuspid regurgitation PAST SURGICAL HISTORY Procedure Laterality [...] SPINE FUSN,POST INTERBODY 2012 Dr. Armando at [facility]. Diskectomy and laminectomy PAST SURGICAL [...] FOLIC ACID ORAL Take by mouth. vit A,C,M-Fmre-Fsdmve (OCUVITE PRESERVISION) 2,148 mcg-113 mg-45 mg-17.4mg tab [...] Electrocardiogram: SINUS RHYTHM WITH PREMATURE ATRIAL COMPLEXES MCIHELLE 154 QRS 82 Laboratory Testing: In process [...] and lab results; will communicate findings via [employer]. - Recommended annual echocardiogram follow-up; patient may choose to follow up locally or at [facility]. 2. Nonrheumatic mitral valve stenosis (I34.2) [...] rehab sessions. Initiated on Metoprolol Succinate by etl architect at [facility]. - Continue Metoprolol Succinate as prescribed. - Monitor BP regularly. 5. 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 6. History of recurrent deep [...] You can follow up with a local etl architect in [place] for your annual echocardiogram and routinecare. If you prefer, you can also follow up at another [facility] or [facility]. - as long as ECHO looks good today, you can follow-up with repeat ECHO in 1 years time - If you experience new or worsening symptoms, such as shortness of breath, chest pain, or leg swelling, please contact your etl architect or our office immediately. Next steps: - Attend your echocardiogram appointment today as scheduled. - I will contact you via [employer] with your echocardiogram and lab results once they are available. - Ensure you have a follow-up plan with a etl architect for your annual echocardiogram and routine care. [...] 4lbs from your dry weight, call your etl architect Exercise: Be active and exercise every day. Smoking and alcohol abstinence/cessation, if applicable Please Visit [email or web address] Questions or Concerns after you go home? Please call Nurse production department supervisor line at . I spent a total of >45 minutes on the date of the service which included preparing to see the patient, [id number] patient care, completing clinical documentation, obtaining and/or reviewing separately obtained history, performing a medically appropriate examination, counseling and educating the patient/family/caregiver, ordering medications, tests, or procedures, independently interpreting results (not separately reported), communicating results to the patient/family/caregiver, and care coordination (not separately reported). Brissa Chester, MSN, PRINTED CIRCUIT BOARDS STRIPPER ETCHER-DIE PRESSER documented in this encounterTrihealth Bethesda North Hospital06-02-2025 History of Present illness Narrative* Twyla Cuevas APRN.CNP - 07/21/2024 11:01 AM EDT Noted, agree, thank you! * Melissa Means RN - 07/21/2024 10:50 AM EDT patient had inr completed at [facility] patients inr is 1.4 (patients [...] not agree with recommendation documented in this encounterTrihealth Bethes[facility]05-19-2025 History of Present illness Narrative* Melissa Means RN - 07/07/2024 4:47 PM EDT pcp agrees with information * Melissa Means RN - 07/07/2024 11:58 AM EDT patient had inr completed at [facility] patients inr is 1.4 (patients [...] not agree with recommendation documented in this encounterTrihealth Bethes[facility]05-19-2025 Telephone encounter Note * Telephone Encounter [...] capsule by mouth two times a day. Melsisa Means RN July 07, 2024 12:02 PM [facility]05-19-[facility]25 Miscellaneous Notes* Telephone Encounter - Melissa [...] 07, 2024 12:02 PM documented in this encounterTrihealth Bethesda North Hospital05-07-2025 History of Present illness Narrative* Pili Benitez RN - 06/25/2024 3:57 PM EDT Images from the original note were not included. [facility] Telephonic Outreach Provider Action/EWELINAI N/A Patient identified by Name and Date of . Discussed care with patient. CDDoretha Update Spoke with the pt. At this time. She has been doing very well. She said that cardiac rehab has been doing good and she enjoys it She established with a new etl architect at [place] as it was a little closer and [...] RN Incomplete Pt. Does not have a optical instrument assembler Biannual Cardiology visit addressed 08/20/2024 05/26/2024 Pili [...] - Bi-Weekly Outreach (Recurring) Disposition Based on assessment coordinator, the following disposition is advised: No action needed Pili Benitez RN June 25, 2024 3:57 PM documented in this encounterTrihealth Bethesda [facility] Hospital05-02-2025 Telephone encounter Note * Telephone Encounter - Magalie Ngo LPN - 06/20/2024 3:27 PM EDT [facility] 02/23/23 Patient phones requesting refills as follows: Requested Prescriptions Pending Prescriptions Disp Refills fluticasone (FLONASE) 50 mcg/actuation nasal spray 3 each 3 Sig: Use 1 spray in each nostril once daily. Please review and advise. Magalie Ngo LPN [facility]05-02-2025 Miscellaneous Notes* Telephone Encounter - Magalie Ngo LPN - 06/20/2024 3:27 PM EDT [facility] 02/23/23 Patient phones requesting refills as follows: Requested Prescriptions Pending Prescriptions Disp Refills fluticasone (FLONASE) 50 mcg/actuation nasal spray 3 each 3 Sig: Use 1 spray in each nostril once daily. Please review and advise. Magalie Ngo LPN documented in this encounterTrihealth Bethesda [facility] Hospital05-02-2025 Evaluation note* Diagnosis Onset Date Resolution Status Admit Date Mitral stenosis acute June 20, 2024 10:07am Severe aortic stenosis acute Ma y 2024 10:07am Hypertension chronic June 20 10:07am [facility] Work Phone: 1(521) 849-832505-02-2025 Evaluation note* Diagnosis Onset Date Resolution Status Admit Date Mitral stenosis acute June 20, 2024 10:07am Severe aortic stenosis acute Ma y 2024 10:07am Hypertension chronic June 20 10:07am Closed fracture of distal en d of left radius acute August 23, 2024 1 0:24am Closed head injury without concussion acute August 23, 2024 1 0:24am [facility] Work Phone: 1(973) 507-179705-02-2025 Evaluation note* Diagnosis Onset Date Resolution Status Admit Date Mitral stenosis acute June 20, 2024 10:07am Severe aortic stenosis acute Ma y 2024 10:07am Hypertension chronic June 20 10:07am Closed fracture of distal en d of left radius acute August 23, 2024 1 0:24am Closed head injury without concussion acute August 23, 2024 1 0:24am Declining functional status acute August 23, 2024 10:24am [facility] Work Phone: 1(117) 416-824305-02-2025 Evaluation note* Diagnosis Onset Date Resolution Status Admit Date Mitral stenosis acute June 20, 2024 10:07am Severe aortic stenosis acute Ma y 2024 10:07am Hypertension chronic June 20 10:07am Closed fracture of distal en d of left radius inactive August 23, 2024 1 0:24am Closed head injury without concussion inactive August 23, 2024 1 0:24am Declining functional status inactive August 23, 2024 10:24am [facility] Work Phone: 1(177) 568-373804-07-2025 History of Present illness Narrative* Pili Benitez, PAULA - 05/26/2024 10:40 AM EDT Transitional Care Management (TCM) Follow-Up Note PCP Update / Actionable Items N/A N/A - No specialty updates needed Patient Source: In-Network Discharge Follow-up outreach: TCM enrolled patient Outreach Summary: TCM Update Spoke with the pt. At this time. Saw DIE PRESSER Sunday- slight cough, still feels like she [...] 26, 2024 10:42 AM documented in this encounterTrihealth Bethes[facility] Hospital04-03-2025 Telephone encounter Note * Telephone Encounter - Yesenia Weinstein LPN - 05/22/2024 11:34 AM EDT Information requested by Santos with [facility] Cardiac Rehab has been faxed as rquested [facility]04-03-2025 Miscellaneous Notes* Telephone Encounter - Yesenia Weinstein LPN - 05/22/2024 11:34 AM EDT Information requested by Santos with [facility] Cardiac Rehab has been faxed as rquested * Telephone Encounter - Lulu Quigley RN - 05/21/2024 11:00 AM EDT Santos with [facility] Cardiac Rehab calls to report that more [...] physician. Phone number for further questions is [phone]. Lulu Quigley RN documented in this encounterTrihealth Bethes[facility] Hospital04-02-2025 Telephone encounter Note * Telephone Encounter - Lulu Quigley RN - 05/21/2024 11:00 AM EDT Santos with [facility] Cardiac Rehab calls to report that more [...] physician. Phone number for further questions is [phone]. Lulu Quigley RN [facility]04-01-2025 History of Present illness Narrative* Jimbo Swanson APRN.MUNICIPAL COURT MAGISTRATE - 05/20/2024 2:13 PM EDT Continue current dosing and recheck INR 2 weeks, advised of this at visit today. * Melissa Means RN - 05/20/2024 12:53 PM EDT patient had inr completed at [facility] patients inr is 1.6 (patients [...] is just slightly low documented in this encounterTrihealth Bethesda North Hospital04-01-2025 Instructions* Patient Instructions* Jimbo Swanson APRN.CNS [...] review all the medicines you take, even [id number] medicines. As you get older, the way [...] have certain medical conditions. documented in this encounterTrihealth Bethes[facility]04-01-2025 History of Present illness Narrative* Jimbo [...] in the medical record. Outside specialists seen: [facility] Medical/Family history review Reviewed and [...] weeks. She will schedule cardiac rehab at [facility]. She would like to establish with local etl architect either in [place] at [facility]. Provided with pain medication to take at bedtime as needed for pain control affecting her sleep. Discussed possible OIC. She does note need for follow-up endoscopy at ~ 1 year from previous, prefers not to see Dr. Esteban. Jimbo Swanson APRN.MUNICIPAL COURT MAGISTRATE documented in this encounterTrihealth Bethes[facility] Hospital03-31-2025 History of Present illness Narrative* Pili [...] a little hoarse today People in her taoism group are also sick She vacuumed her [...] so she is very involved in her taoism right now. No new SDOH concerns were [...] 19, 2024 11:12 AM documented in this encounterTrihealth Bethesda [facility] Hospital03-24-2025 History of Present illness Narrative* Pili [...] confirmed she has since spoke with her DATABASE ADMIN about that. 1.7-2.0 range established with her doctor as her desired range for her INR. Her ATB is completed that she was discharged on. She tolerated that well with no complaints. She's been getting out and going to taoism and her choir practices. She just took [...] 12, 2024 9:59 AM documented in this encounterTrihealth Bethes[facility] Hospital03-24-2025 Telephone encounter Note * Telephone Encounter - Yesenia Weinstein LPN - 05/12/2024 8:50 AM EDT Patient notified of providers message and verbalized understanding. [facility]03-24-2025 Miscellaneous Notes* Telephone Encounter - Yesenia [...] when INR > 2.0 documented in this encounterTrihealth Bethesda North Hospital03-21-2025 Telephone encounter Note * Telephone Encounter - Jimbo Swanson APRN.CNS - 05/09/2024 3:24 PM EDT Recommend continue with current dosing unchanged. Can check INR next week or Sunday or keep her scheduled appointment in Coumadin clinic on May 20. [facility]03-21-2025 Telephone encounter Note* Telephone Encounter - Yesenia Weinstein LPN - 05/09/2024 2:13 PM EDT Spoke with patient. Patient states she was released from the hospital on Sunday and she resumed her coumadin on Sunday. Her current dosing is coumadin 5 mg every day except on & Sun in which she takes 6 mg. No other finding per patient. [facility]03-[facility] Telephone encounter Note* Telephone Encounter - Yesenia Weinstein LPN - 05/09/2024 2:07 PM EDT ----- Message from Jimbo Timmons APRN.CNS sent at 05/09/2024 1:07 PM EDT ----- Check on current dosing of check on current dosing of Coumadin and when resumed. 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 She is to stop Aspirin when INR > 2.0 [facility]03-21-2025 Progress note* Result Encounter Note - Jimbo Swanson APRN.CNS - 05/09/2024 1:07 PM EDT Check on current dosing of check on current dosing of Coumadin and when resumed. 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 She is to stop Aspirin when INR > 2.0 [facility]03-17-2025 History of Present illness Narrative* Pili Benitez RN - 05/05/2024 10:32 AM EDT Transition Care Management (TCM) Initial Outreach PCP Update / Actionable Items N/A HRTIC TCM Home Visit Referral Source of Stratification: TCM HUB Hospital Admission Status: Discharged Readmission Risk Score: 10% Patient's zip code: [address] Is zip code within program service area: [...] pt. And confirmed upcoming appts. Went to Senior Sourcing Manager office this morning- everything going well since [...] will be taking place at [facility]- She will call them to schedule She has good support from her taoism that help her get to her appts [...] TCM outreach phone calls Patient discharged from [facility] Discharge date: 05/03/24 Admitted for: TAVR procedure Readmission Risk: 10 Value-Based Contract: Aetsimeon DELGADO Contact: Contact made with patient: Yes Hi, my name is Pili Benitez RN and I am calling from the [facility] on behalf of your PrimaryCare Provider, [...] I will send your request to a textile artist who will contact and assist you with [...] 05, 2024 10:45 AM documented in this encounterTrihealth Bethesda North Hospital03-17-2025 Instructions* Patient Instructions* Adalid Clark APRN.DIE PRESSER - 05/05/2024 8:34 AM EDT Follow up/Disposition: [...] 4lbs from your dry weight, call your etl architect Exercise: Be active and exercise every day. Smoking and alcohol abstinence/cessation, if applicable Heart Failure Education Booklet: information given previously. Please Visit [email or web address] documented in this encounterTrihealth Bethesda [facility] Hospital03-17-2025 History of Present illness Narrative* Adalid Clark APRN.CNP - 05/05/2024 8:14 AM EDT Images from the original note were not included. [facility] V[facility] Department of Cardiovascular Medicine SECTION OF INTERVENTIONAL CARDIOLOGY OUTPATIENT VISIT DATE May 05, 2024 OUTPATIENT VISIT TYPE ESTABLISHED FOLLOW UP Primary Senior Sourcing Manager: Dr. Saeed Chief Complaint: Patient here for cardiac follow up evaluation History of Present Illness: Patient is a 78 year old female who presents for follow up visit today. 05/02/2024 s/p TF TAVR via 14 Fr R DAIRY NUTRITION CONSULTANT with a 25 mm Navitor Reports has [...] s/p TF TAVR via 14 Fr R DAIRY NUTRITION CONSULTANT with a 25 mm Navitor -Echo post trace AI, gradients 12/6mmHg HTN disseminated histoplasmosis (ongoing treatment with undetectable histo antigen 12/19) VTE s/p IVC filter (warfarin) GIB in July from duodenal ulcer s/p cautery RA (but off treatment d/t histoplasmosis) COPD ASSESSMENT/ IMPRESSION 05/02/2024 s/p TF TAVR via 14 Fr R DAIRY NUTRITION CONSULTANT with a 25 mm Navitor Reports has [...] 4lbs from your dry weight, call your etl architect Exercise: Be active and exercise every day. Smoking and alcohol abstinence/cessation, if applicable Heart Failure Education Booklet: information given previously. Please Visit [email or web address] I spent a total of >35 minutes on the date of the service which included preparing to see the patient, [id number] patient care, completing clinical documentation, obtaining and/or reviewing separately obtained history, performing a medically appropriate examination, counseling and educating the patient/family/caregiver, and ordering medications, tests, or procedures. Adalid Clark APRN.CNP documented in this encounterTrihealth Bethesda [facility]03-13-2025 History of Present illness Narrative* Jimbo Swanson APRN.CNS - 05/01/2024 4:08 PM EDT Noted, agree * Melissa Means RN - 05/01/2024 2:52 PM EDT patient had inr completed at [facility] patients inr is 1.1 (patients [...] (05/20/24 - pt has appt w ith DATABASE ADMIN also this day) for follow up INR. documented in this encounterTrihealth Bethesda [facility] Hospital03-12-2025 History of Present illness Narrative* Nara [...] Imm Admin: COVID-19 vaccine, age 12+ yr ([employer]) 01/04/2023 Imm Admin: COVID-19 vaccine, age 12+ yr, 2022- season ([employer]) Only the first 3 history entries have been loaded, but more history exists. The patient has the following: ACTIVE PROBLEM LIST Esophageal Reflux Meralgia Paresthetica Other Voice and Resonance Disorders Arthropathy, Unspecified, Site Unspecified Elevated Liver Enzymes Mobile Architect Current Use of Anticoagulant Therapy Hnp (Herniated [...] positive rheumatoid factor (HCC) 03/07/2015 Dr. Hurley ([facility]) Tricuspid regurgitation PAST SURGICAL HISTORY Procedure Laterality [...] SPINE FUSN,POST INTERBODY 2012 Dr. Armando at [facility]. Diskectomy and laminectomy PAST SURGICAL HISTORY OF 03/07/1999 removal facial lesion PAST SURGICAL HISTORY OF 08/17/2014 excision soft tissue mass left index finger TONSILLECTOMY PRIMARY/SECONDARY <AGE 12 TRANSCATH JEVON ALBRECHT 12/28/2006 FAMILY HISTORY Problem Relation Age of [...] (FLONASE) 50 mcg/actuation nasal spray Use 1 [place] in each nostril once daily. vit A,C,S-Yocp-Yiorib (OCUVITE PRESERVISION) 2,148 mcg-113 mg-45 mg-17.4mg tab [...] tablet daily. Medication Comments documented by Steven ([employer])Muna on 03/05/2018 at 0933. 03/05/18 The medications are managed by this patient by: PATIENT Muna Harris ([employer]) [facility] for residential medications. ALLERGIES Allergen Reactions Penicillins Hives Objective [...] 03/21/24 11:36 AM Impression IMPRESSION: See result Science Instructor: [facility] Transcribe Date/Time: Mar 21 2024 12:02P Dictated by : JACKELINE SCHULER MD This examination was interpreted and the report reviewed and electronically signed by: JACKELINE SCHULER MD on Mar 21 2024 12:04PM EST ECG COMPLETE Collection Time: 03/21/24 11:27 AM Impression SINUS RHYTHM WITH PREMATURE ATRIAL COMPLEXES BORDERLINE ECG Confirmed by IRA MC, ELIE ([id number]) on 03/30/2024 12:00:41 AM CTA CHEST (GATED) W IVCON Collection Time: 03/21/24 10:57 AM Impression IMPRESSION: Aortic Annulus and valve anatomy as described above Normal thoracic and abdomiinal aorta.Atherosclerotic changes as in the body of the report.Minimum luminal diameter throughout: 7 mm Science Instructor: [facility] Transcribe Date/Time: Mar 21 2024 11:22A [...] 5:59 PM Pager/Contact #: documented in this encounterTrihealth Bethesda North Hospital03-12-2025 Instructions* Patient Instructions* Monica Aguila APRN.DIE PRESSER - 04/30/2024 1:32 PM EDT Destinee Castañeda are scheduled for TF-TAVR on 05/02/[address] Saeed Instructed to go to [facility] REGISTRATION TODAY, after all appointment to register for the procedure. ON THE PROCEDURE DAY 05/03/2024, Report to [facility] J1-2 at 8:30 . Instructions: The Evening [...] into surgery. - No make-up or nail gabonese. - No jewelry, including watches, wedding rings and any body jewelry. // Questions about preparing for your procedure? Call your doctors office: Dr. Orlin Meyer [phone] Dr. Gallito Cortez [phone] Dr. Jason Olea [phone] Dr. Juvencio Saeed [phone] Interventional Discharge Readiness Tool Your Anticipated Discharge Needs: If you are discharged the same day -You must have accommodations in [place] (if you live over 2 hours away) [...] your risk of future heart problems. For [facility] Cardiac Rehab call [phone] to schedule after you are home from your procedure. If you do not receive your referral, please call your etl architect's office for the order. It was nice to see you again, I wish you the best. Kindly, Monica Aguila APRN.SANTY documented in this encounterTrihealth Bethesda [facility] Hospital03-12-2025 History of Present illness Narrative* Monica Aguila APRN.CNP - 04/30/2024 1:00 PM EDT Images from the original note were not included. Heart [facility] V[facility] Department of Cardiovascular Medicine SECTION OF INTERVENTIONAL CARDIOLOGY OUTPATIENT VISIT DATE April 30, 2024 OUTPATIENT VISIT TYPE ESTABLISHED FOLLOW UP Primary Senior Sourcing Manager: Dr. Saeed Chief Complaint: Patient here for cardiac follow up evaluation History of Present Illness: Patient is a 78 year old female who presents for follow up visit today. Patient was here with a couple from her taoism. She lives at home alone and is [...] no Dental clearance: Completed and scanned in [facility] PPM: No Anticoagulation: Coumadin- Last dose taken 04/27/2024 Contrast Allergy: no Surgeon Note 03/25/2024 KCCQ-12: 03/25/2024 15 Ft W: 03/25/2024 PLAN AND RECOMMENDATIONS: Haydee Bustamante is scheduled for TF-TAVR on 05/02/[address] Saeed Instructed to go to [facility] J1-1 REGISTRATION TODAY, after all appointment to register for the procedure. ON THE PROCEDURE DAY 05/03/2024, Report to [facility] J1-2 at 8:30. Instructions: The Evening Before [...] into surgery. - No make-up or nail gabonese. - No jewelry, including watches, wedding rings and any body jewelry. // Questions about preparing for your procedure? Call your doctors office: Dr. Orlin Meyer [phone] Dr. Gallito Cortez [phone] Dr. Jason Olea [phone] Dr. Juvencio Saeed [phone] Interventional Discharge Readiness Tool Your Anticipated Discharge Needs: If you are discharged the same day -You must have accommodations in [place] (if you live over 2 hours away) [...] your risk of future heart problems. For [facility] call [phone] to schedule after you are home from your procedure. If you do not receive your referral, please call your etl architect's office for the order. I spent a total of 35 minutes on the date of the service which included preparing to see the patient, [id number] patient care, completing clinical documentation, obtaining and/or reviewing separately obtained history, performing a medically appropriate examination, counseling and educating the pat ient/family/caregiver, and communicating results to the patient/family/caregiver. Monica Aguila APRN.DIE PRESSER documented in this encounterTrihealth Bethesda North Hospital03-12-2025 History of Present illness Narrative* Ursula [...] PATIENT PRESENTS WITH AN IMPLANTABLE OR ATTACHED NURSERY LABORER: No RADIOLOGY DEPARTMENT: General X-ray: Exam(s) Completed: Chest X-Ray PERIPHERAL IV DATA: Not applicable SIGNED BY: RT Leslie(R) April 30, 2024 11:27 AM documented in this encounterTrihealth Bethesda North Hospital03-03-2025 History of Present illness Narrative* Geno Hart MD - 04/21/2024 11:00 AM EST Patient presents with: Disseminated histoplasmosis : Recurrent due to immunosuppression HPI: 78-year-old woman with 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 This recurrence was found as it was starting to be worked up by her optical instrument assembler in February 2023 and we started therapy again when she was transferred to [facility] Due to massive hemoptysis found out to be COVID-positive. She was treated with remdesivir and dexamethasone and then put back on itraconazole March 19 for her histoplasma recurrence. She had previous disseminated histoplasmosis [facility] [...] be getting a TAVR next week at [facility] due to aortic valve problems. Her [...] 11/22/2023 COVID-19 vaccine, age 12+ yr, bivalent ([employer]) 11/10/2021 TD Adult 11/06/2019 diphtheria tetanus (DT) [...] (FLONASE) 50 mcg/actuation nasal spray Use 1 [place] in each nostril once daily. 3 Each 3 vit A,C,V-Ayiu-Fesvam (OCUVITE PRESERVISION) 2,148 mcg-113 mg-45 mg-17.4mg tab [...] Aortic stenosis COPD (chronic obstructive pulmonary disease) ([facility]) Disseminated histoplasmosis Colitis, immunosuppression, 01/2018. Diverticulosis of colon (without mention of hemorrhage) Diverticulosis DVT, recurrent, lower extremity, acute ([facility]) 12/10/2014 GERD (gastroesophageal reflux disease) Hiatal hernia 02/25/2018 Hypertension Lung nodule Macular degeneration Mitral stenosis Rheumatoid arthritis involving multiple sites with positive rheumatoid factor ([facility]) 03/07/2015 Dr. Hurley ([facility]) Tricuspid regurgitation PAST SURGICAL HISTORY Procedure Laterality [...] SPINE FUSN,POST INTERBODY 2011 Dr. Armando at [facility]. Diskectomy and laminectomy PAST SURGICAL HISTORY OF 03/07/1999 removal facial lesion PAST SURGICAL HISTORY OF 08/17/2014 excision soft tissue mass left index finger TONSILLECTOMY PRIMARY/SECONDARY <AGE 12 TRANSCATH RETRIEVAL,PERCUT 12/28/2006 ACTIVE PROBLEM LIST Esophageal Reflux Meralgia Paresthetica Other Voice and Resonance Disorders Arthropathy, Unspecified, Site Unspecified Elevated Liver Enzymes Mobile Architect Current Use of Anticoagulant Therapy Hnp (Herniated [...] 6 months (around 10/22/2024). documented in this encounterTrihealth Bethesda North Hospital02-26-2025 History of Present illness Narrative* Leandra Venegas APRN.MUNICIPAL COURT MAGISTRATE - 04/16/2024 9:13 AM EST Images from the original note were not included. documented in this encounterTrihealth Bethesda North Hospital02-25-2025 History of Present illness Narrative* Leandra [...] Can follow-up with her local dentist. Jasmyn Feltonmaria e [facility] [phone] Pacemaker evaluation: N/A Shante, Please schedule Haydee Bustamante [phone] for COMMERCIAL TF- TAVR ( CARLYN) Procedure on: Thursday May 02, 2024 Lab/CXR/EKG Appointment: SundayApril 30 Please schedule STRUCTURAL VALVE CLINIC Visit on: SundayApril 30 Date of J4-1 Anesthesia only: SundayApril [address] lab schedule on : Thursday May 02, 2024 at 8:30 AM CPT Code: 73467 Diagnosis Code: I35.0 LABEL DESIGNER: Dr. Saeed Performing Physician: Dr. Saeed OR: 81 Surgeon: Dr. Francis Please schedule bed reservation for post procedure-(should be a TCI) EVAN schedule- intra/op Patient also needs INSURANCE PRECERTIFICATION ADL SCORE___6 SURVIVAL RATE GREATER THAN 1 YEAR____Y___(LOOKING FOR A YES) EF ___N__(GREATER THAN 50%) Thank you. Leandra Venegas APRN.CNS Request sent to scheduling. documented in this encounterTrihealth Bethesda North Hospital02-25-2025 Telephone encounter Note * Telephone Encounter - Leandra Venegas APRN.CNS - 04/15/2024 12:12 PM EST Tried to call patient to schedule TAVR procedure. Left message for her to call the office. Leandra Venegas APRN.CNS [facility]02-25-2025 Miscellaneous Notes* Telephone Encounter - Leandra Venegas APRN.CNS - 04/15/2024 12:12 PM EST Tried to call patient to schedule TAVR procedure. Left message for her to call the office. 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 Saeed receives payments from several device companies for educational activities, advisory boardduties, consulting, and/or proctoring. The companies include: [employer], [employer], and [employer]. A product by [employer], [employer], [employer], or a competitor, may be used in this patient's care. Dr. Saeed does not receive any money for products he or any other [facility] physicians prescribe or use. Dr. Saeed's choice on which product used in this patient's case is or was not influenced by his relationship with any company. Dr. Saeed selected the product that in his hands is believed to be the best option for this patient's treatment. This was discussed with the patient. Juvencio Saeed MD, MSc documented in this encounterTrihealth Bethesda North Hospital02-14-2025 History of Present illness Narrative* Tracey Heller APRN.SANTY - 04/04/2024 6:21 AM EST Bay Heller APRN.DIE PRESSER * Melissa Means RN - 04/03/2024 1:48 PM EST patient had inr completed at [facility] patients inr is 1.7 (patients [...] for follow up INR. documented in this encounterTrihealth Bethesda [facility] Hospital02-13-2025 Telephone encounter Note * Telephone Encounter [...] a TAVR. Alisa Allen RN, BSN Nurse Composition Weatherboard Applier for Dr. Bartolome Francis [facility]02-13-2025 Miscellaneous Notes* Telephone Encounter - Alisa [...] a TAVR. Alisa Allen RN, BSN Nurse Composition Weatherboard Applier for Dr. Bartolome Francis * Telephone Encounter - Enrique, Karen - 04/02/2024 1:44 PM EST Images from the original note were not included. LOCAL PATIENT Received [place] Email from Dr. Christophe Bustamante is being referred to [facility]ol[facility] [address] Patient diagnosis/Reason for consult: Aortic Valve Stenosis; Chronic Heart Failure Referral triage process explained: N/A Patient will receive a call from Cardiac NPM after triage review with surgeon to discuss any additional testing and/or consults that will be scheduled. Pt will then receive a call from our scheduling office for scheduling. Please call pt at [phone]. Patient Registration: Registration complete/updated: yes Insurance card(s) scanned in epic with in the past year: Yes: Date: 10/18/2023 Pt's MyChart is active. Ok to communicate to pt via [employer] not asked Medical Records: Records in Epic (internal CC records): Yes Imaging in Epic (internal CC records): Yes Care Everywhere - queried yes, downloaded Yes Linked Outside Organizations (list): Additional providers added to Care Teams: Yes Additional Notes/Comments: Internal Referral Enct routed to: Yes, Cardiac NPM for triage Karen Nunez documented in this encounterTrihealth Bethes[facility] North Hospital02-12-2025 Telephone encounter Note * Telephone Encounter - Karen Nunez - 04/02/2024 1:44 PM EST Images from the original note were not included. LOCAL PATIENT Received [place] Email from Dr. Christophe Bustamante is being referred to Bartolome Francis M.D. by Juvencio Saeed [address] [facility] [address] Patient diagnosis/Reason for consult: Aortic Valve Stenosis; Chronic Heart Failure Referral triage process explained: N/A Patient will receive a call from Cardiac NPM after triage review with surgeon to discuss any additional testing and/or consults that will be scheduled. Pt will then receive a call from our scheduling office for scheduling. Please call pt at [phone]. Patient Registration: Registration complete/updated: yes Insurance card(s) scanned in epic with in the past year: Yes: Date: 10/18/2023 Pt's [employer] is active. Ok to communicate to pt via [employer],t not asked Medical Records: Records in Epic (internal CC records): Yes Imaging in Epic (internal CC records): Yes Care Everywhere - queried yes, downloaded Yes Linked Outside Organizations (list): Additional providers added to Care Teams: Yes Additional Notes/Comments: Internal Referral Enct routed to: Yes, Cardiac NPM for triage Karen Nunez [facility]02-12-2025 Telephone encounter Note* Telephone Encounter - HoffmannDavid higgins - 04/02/2024 9:16 AM EST IN [facility] Work Phone: [phone] Miscellaneous Notes* Telephone Encounter - David Hoffmann - 04/02/2024 9:16 AM EST IN * Telephone Encounter - Karen Nunez - 04/01/2024 4:53 PM EST Insurance Card(s) scanned into Nearpod Please register/advise Thank You! documented in this encounterTrihealth Bethes[facility] Hospital02-11-2025 Telephone encounter Note * Telephone Encounter - Karen Nunez - 04/01/2024 4:53 PM EST Insurance Card(s) scanned into Near[employer] Please register/advise Thank You! [facility]02-10-2025 History of Present illness Narrative* Estefania Ervin APRN.DIE PRESSER - 03/31/2024 12:02 PM EST [facility] Department of Cardiovascular Medicine SECTION [...] be handled by: CVM coordinator Estefania Ervin APRN.DIE PRESSER documented in this encounterTrihealth Bethes[facility] Hospital02-10-2025 History of Present illness Narrative* Yu [...] 31, 2024 10:42 AM documented in this encounterTrihealth [facility]hes[facility]02-05-2025 History of Present illness Narrative* Yu [...] 26, 2024 9:38 AM documented in this encounterTrihealth Bethes[facility] Hospital02-04-2025 History of Present illness Narrative* Bartolome Francis MD - 03/25/2024 3:45 PM EST Images from the original note were not included. Heart, Vascular and Thoracic [place] DEPARTMENT OF CARDIAC SURGERY OUTPATIENT VISIT DATE March 25, 2024 OUTPATIENT VISIT SERVICE DATE: 03/25/2024 SERVICE TIME: 3:45 PM PCP: Claudine Durán [address] [place] [address] Referring Physician: Monica Aguila [address] [facility] [address] Patient Type: Consult Visit to determine Surgery: [...] the report.Minimum luminal diameter throughout: 7 mm Science Instructor: KRYSTAL Transcribe Date/Time: Mar 21 2024 11:22A [...] record Bartolome Francis MD documented in this encounterTrihealth Bethesda North Hospital02-04-2025 Instructions* Patient Instructions* Monica Aguila APRN.DIE PRESSER - 03/25/2024 11:06 AM EST Destinee Lozano have spoken with you regarding the evaluation [...] your risk of future heart problems. For [facility] Cardiac Rehab call [phone] to schedule after you are home from your procedure. If you do not receive your referral, please call your etl architect's office for the order. We also discussed [...] Kindly, Monica Aguila APRN.CNP documented in this encounterTrihealth Bethesda North Hospital02-04-2025 History of Present illness Narrative* Monica Aguila APRN.CNP - 03/25/2024 11:00 AM EST Images from the original note were not included. [facility] Department of Cardiovascular Medicine SECTION OF INTERVENTIONAL CARDIOLOGY OUTPATIENT VISIT DATE March 25, 2024 OUTPATIENT VISIT TYPE ESTABLISHED FOLLOW UP Primary Senior Sourcing Manager: Dr. Saeed Chief Complaint: Patient here for [...] I have personally reviewed the above testing. HILLSIDE CARDIOMYOPATHY QUESTIONNAIRE (KCCQ-12) Activity: A. Showering/bathing: Extremely [...] for other reasons. 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 For [facility] Card[facility] call [phone] to schedule after you are home from your procedure. If you do not receive your referral, please call your etl architect's office for the order. We also discussed [...] which included preparing to see the patient, [id number] patient care, completing clinical documentation, obtaining and/or reviewing separately obtained history, counseling and educating the patient/family/caregiver, independently interpretin g results (not separately reported), and communicating results to the patient/family/caregiver. Monica Aguila APRN.CNP documented in this encounterTrihealth Bethesda North Hospital02-04-2025 History of Present illness Narrative* Chacho Anaya RRT - 03/25/2024 9:43 AM EST PULM FUNCTION: Provider: Monica Aguila APRN.CNP Spirometry: 1 DLCO: 1 J- LAB # 1 - PFT documented in this encounterTrihealth Bethesda North Hospital02-04-2025 History of Present illness Narrative* Ken [...] PATIENT PRESENTS WITH AN IMPLANTABLE OR ATTACHED NURSERY LABORER: No CREATININE: Creatinine Date Value Ref Range [...] 8:34AM PATIENT DISCHARGED TO: Ambulatory patient, left [place] department area. Is this a therapy: No A Diagnostic radioactive procedure has taken place, with no further precautions necessary other than routine body substance precautions. More information regarding radiation safety can be found usingInteractive Investors link: [email or web address] SIGNATURE: RT Howie(R) PATIENT NAME: Haydee Bustamante DATE: March 25, 2024 TIME: 8:38 AM PAGER/CONTACT #: documented in this encounterTrihealth Bethesda North Hospital02-02-2025 Telephone encounter Note * Telephone Encounter [...] hospital information, hotel information. Instructed By Caitlin M Kolodny, RN. In Department of CARDIOLOGY. [facility]02-02-2025 Miscellaneous Notes* Telephone Encounter - Caitlin [...] In Department of CARDIOLOGY. documented in this encounterTrihealth Bethesda North Hospital01-31-2025 History of Present illness Narrative* Yu Torres MA - 03/21/2024 2:37 PM EST POPULATION HEALTH NAVIGATION OUTREACH Action/FYI Last OV: 02/29/2024 No upcoming appts noted. Last Wellness Exam: Unknown Patient is due for: Annual Wellness Outcome: Left VM for patient to return call to schedule appointment/address care gaps. [employer] message sent. Reason for Outreach Care Gap/HCC or Scheduling Wellness Visits Care Gaps due: Medicare Annual Wellness Visit Patient Contacted: Unable or unnecessary to reach patient: Left message MyChart message sent Navigation Signature: Yu Torres MA March 21, 2024 2:37 PM documented in this encounterTrihealth Bethesda North Hospital01-31-2025 History of Present illness Narrative* Ursula Rosario RT(Ade) - 03/21/2024 11:30 AM EST Radiology Service [...] PATIENT PRESENTS WITH AN IMPLANTABLE OR ATTACHED NURSERY LABORER: No RADIOLOGY DEPARTMENT: General X-ray: Exam(s) Completed: Chest X-Ray PERIPHERAL IV DATA: Not applicable SIGNED BY: RT Leslie(Ade) March 21, 2024 11:38 AM documented in this encounterTrihealth Bethesda North Hospital01-31-2025 History of Present illness Narrative* Candace [...] PATIENT PRESENTS WITH AN IMPLANTABLE OR ATTACHED NURSERY LABORER: No RADIOLOGY DEPARTMENT: CT; Exam(s) Completed: Cardiac PERIPHERAL IV DATA: Site assessment: Clean,Dry and Intact, Site disposition Discontinued SIGNED BY: RT Clark(R) March 21, 2024 10:53 AM documented in this encounterTrihealth Bethesda North Hospital01-31-2025 History of Present illness Narrative* Juvencio Saeed MD - 03/21/2024 9:30 AM EST [facility] Department of Cardiovascular Medicine SECTION OF INTERVENTIONAL CARDIOLOGY OUTPATIENT VISIT DATE March 21, 2024 OUTPATIENT VISIT TYPE NEW PRIMARY CARE PHYSICIAN: Claudine Durán [address] [place] [address] REFERRING PHYSICIAN: No referring provider defined for [...] neighbors and friends - very active in taoism community. She denies chest pain, shortness of breath, dyspnea on exertion, orthopnea, PND, palpitations, lightheadedness, syncope, claudication, leg swelling, cough, and wheezing. Diet / Nutrition: regular Weight: stable Exercise: none PAST MEDICAL HISTORY Diagnosis Date Anemia Bone marrow involvement with histoplasmosis Aortic stenosis COPD (chronic obstructive pulmonary disease) ([facility]) Disseminated histoplasmosis Colitis, immunosuppression, 01/2018. Diverticulosis of colon (without mention of hemorrhage) Diverticulosis DVT, recurrent, lower extremity, acute ([facility]) 12/10/2014 GERD (gastroesophageal reflux disease) Hiatal hernia 02/25/2018 Hypertension Lung nodule Macular degeneration Mitral stenosis Rheumatoid arthritis involving multiple sites with positive rheumatoid factor ([facility]) 03/07/2015 Dr. Hurley ([facility]) Tricuspid regurgitation PAST SURGICAL HISTORY Procedure Laterality [...] SPINE FUSN,POST INTERBODY 2012 Dr. Armando at [facility]. Diskectomy and laminectomy PAST SURGICAL [...] fluticasone (FLONASE) 50 mcg/actuation nasal spray^Use 1 [place] in each nostril once daily.^Disp: 3 Each^Rfl: 3 vit A,C,K-Zkgf-Tjwlvk (OCUVITE PRESERVISION) 2,148 mcg-113 mg-45 mg-17.4mg tab^Take [...] CTS assessment. Following[facility] I personally interviewed, confirmed and edited the above information as obtained by others. Juvencio Saeed M.D., M.Sc., F.A.C.C., F.S.C.A.I. Staff, Interventional Cardiology [facility] Desk [facility], [address] [place] [address] Office , toll-free [phone], [phone] Office Appointments: [phone], toll-free [phone], [phone] documented in this encounterTrihealth Bethesda North Hospital01-10-2025 Instructions* Patient Instructions* Claudine Durán MD - 02/29/2024 5:43 PM EST .aisavs documented in this encounterTrihealth Bethesda North Hospital01-10-2025 History of Present illness Narrative* Claudine Durán MD - 02/29/2024 5:23 PM EST This note was created using [email or web address]. Subjective Haydee Bustamante is a 78 year [...] and was restarted on methotrexate by her silverer, Dr. Jane Montoya. She was also prescribed [...] flu vaccines on the same day at [facility]. She reports some anxiety related to her upcoming surgery and recent life events, including a changein her email and bank account. She has a support system in place, including a friend who will accompany her to appointments and a medical power of title attorney. She has advanced directives on file. She denies severe depression but reports being in a bad mood recently due to stress from her responsibilities with the [employer]. PAST MEDICAL HISTORY Diagnosis Date Anemia Bone marrow involvement with histoplasmosis Bronchiectasis (HCC) COPD (chronic obstructive pulmonary disease) (HCC) Disseminated histoplasmosis Colitis, immunosuppression, 01/2018. Diverticulosis of colon (without mention of hemorrhage) Diverticulosis DVT, recurrent, lower extremity, acute ([facility]) 12/10/2014 Esophageal reflux Hiatal hernia 02/25/2018 Hypertension Lung nodule Personal history of unspecified urinary disorder Rheumatoid arthritis involving multiple sites with positive rheumatoid factor ([facility]) 03/07/2015 Dr. Hurley ([facility]) Unspecified hemorrhoids without mention of [...] (FLONASE) 50 mcg/actuation nasal spray Use 1 [place] in each nostril once daily. vit A,C,X-Wnpw-Kthull (OCUVITE PRESERVISION) 2,148 mcg-113 mg-45 mg-17.4mg tab [...] heart failure with preserved ejection fraction (HFpEF) ([facility]) (I50.32) # Nonrheumatic aortic valve stenosis (I35.0) - Scheduled for TAVR on the of next month at the main campus. - Reports significant heart murmur audible during auscultation. - No current edema noted; Lasix on hold. - Spironolactone therapy discontinued. - Follow-up with cardiology on the of this month. # Rheumatoid arthritis with positive rheumatoid factor, involving unspecified site ([facility]) (M05.9) - Under management by Dr. Jane Montoya at [facility]. - Resumed methotrexate and initiated sulfasalazine 2 tablets twice daily; significant improvement in pain and stiffness reported. - Recent corticosteroid injection provided additional relief. - Humira therapy currently discontinued. # COPD without exacerbation ([facility]) (J44.9) # Bronchiectasis without complication ([facility]) (J47.9) - Conditions are stable; no exacerbations reported. - Cleared for upcoming TAVR procedure. # Screening for depression (Z13.31) # Encounter for screening examination for other mental health and behavioral disorders (Z13.39) - Depression screening completed; no severe depression noted. - Mild anxiety related to upcoming surgery; no pharmacological or counseling interventions requiredat this time. Claudine Durán MD documented in this encounterTrihealth Bethesda [facility] Hospital01-10-2025 History of Present illness Narrative* Melissa Means RN - 02/29/2024 3:45 PM EST patient had inr completed at [facility] patients inr is 2.0 (patients [...] for follow up INR. documented in this encounterTrihealth Bethesda North Hospital01-02-2025 Telephone encounter Note * Telephone Encounter [...] Please review and advise. Jannet Aldana RN [facility] Work Phone: 1(776) 583-113301-02-2025 Miscellaneous Notes* Telephone Encounter - Jannet Aldana [...] times a day. Please review and advise. Janent Aldana RN documented in this encounterTrihealth Bethesda North Hospital12-12-2024 History of Present illness Narrative* Jimbo Swanson APRN.MUNICIPAL COURT MAGISTRATE - 01/31/2024 4:15 PM EST Continue with Coumadin dose unchanged and check INR in 4 weeks * Melissa Means RN - 01/31/2024 2:06 PM EST patient had inr completed at [facility] patients inr is 1.9 (patients [...] for follow up INR. documented in this encounterTrihealth Bethesda North Hospital12-10-2024 History of Present illness Narrative* Ilda Miller RN - 01/29/2024 2:57 PM EST [facility] Telephonic Outreach Provider Action/FYI N/A 2nd attempt [...] more often than normal? No Based on assessment coordinator, the following disposition is advised: No symptoms or symptoms present, not severe. Routed to: No Action Needed PAN Education Provided this Outreach: No Appointments for Next 60 Days Date Time Provider Location Dept Phone 01/31/2024 10:30 AM FAWAD [facility] Akbar [phone] 02/29/2024 3:40 PM CLAUDINE DURÁN [facility] Akbar [phone] Ilda Miller RN January 29, 2024 3:01 [...] goal align with programs offered at the [facility]? No Patient accepts telephonic outreach. PAN [...] stressful. Can we connect you with a [facility] Health Head Neck Surgeon to find a program that could help you meet your goals? No Falls completed:Yes ADL's updated: Yes Ilda Miller RN January 29, 2024 3:32 PM documented in this encounterTrihealth [facility]12-02-2024 History of Present illness Narrative* Ilda Miller RN - 01/21/2024 1:25 PM EST [facility] Telephonic Outreach Provider Action/FYI N/A Contacted for: Routine Telephonic Outreach Contact made with patient: No, left message. Ilda Miller RN January 21, 2024 1:28 PM Goals/Falls/ADL Update Contact made with patient: No, left message. Ilda Miller RN January 21, 2024 1:28 PM documented in this encounterTrihealth Bethes[facility] Hospital11-21-2024 History of Present illness Narrative* Jimbo Swanson APRN.CNS - 01/10/2024 12:45 PM EST Coumadin 6mg and Sunday and 5mg all other days and recheck in 3 weeks due to the cc is closed at the 2 week jasmyn * Melissa Means RN - 01/10/2024 12:39 PM EST patient had inr completed at [facility] CC patients inr is 1.5 (patients inr [...] not agree with recommendation documented in this encounterTrihealth Bethes[facility] North Hospital11-19-2024 Note* Addendum Note - Monica Aguila APRN.CNP - 01/08/2024 4:18 PM ESTAddended by: MONICA AGUILA on: 01/08/2024 04:18 PM Modules accepted: Orders [facility]11-19-2024 Miscellaneous Notes* Addendum Note - Monica Mccormick APRN.CNP - 01/08/2024 4:18 PM ESTAddended by: MONICA MCCORMICK on: 01/08/2024 04:18 PM Modules accepted: Orders documented in this encounterTrihealth Bet[facility]11-19-2024 History of Present illness Narrative* Monica Aguila APRN.CNP - 01/08/2024 9:30 AM EST [facility] STRUCTURAL REVIEW FORM Orders placed by: Dr. Roche on 01/02/2024 Records Reviewed: 01/08/2024 Appt request sent: 01/08/2024 Records in [facility] have been reviewed. Severe . Request has been sent to the textile artist who will arrange an appointment schedule. Please [...] greater, then it should be by an Service Tester ONLY (Dr. Cota, , Dr. Olea, Dr. Cortez, Dr. Meyer, Dr. Beavers, Dr. Jackson,Dr. Gillespie, Dr. Rosa, Dr. Dunn, Dr. Painter and Dr. West) DAY THREE: Nuclear Medicine- Amyloid SPECT Structural Valve Clinic appointment PFT s (spirometry, diffusing capacity) Patient is also to be seen by Dr. Francis/Dr. Macdonald/Dr. Costa/Dr. Silverio/ Dr. Delgado/Dr. Gonzalez/Dr. Arreaga/Dr. Luu/ Dr. Manzanares/ Dr. Gan/Dr. Anjali Aguila APRN.CNP documented in this encounterTrihealth Bethes[facility]11-15-2024 Telephone encounter Note * Telephone Encounter [...] Hart MD 01/04/2024 2:33 PM pgr [id number] [facility]11-15-2024 Miscellaneous Notes* Telephone Encounter - Geno [...] 2:33 PM pgr [id number] documented in this encounterTrihealth Bethesda North Hospital11-13-2024 History of Present illness Narrative* Lili Roche MD - 01/02/2024 9:45 AM EST Images from the original note were not included. Heart, Vascular, and Thoracic [facility] Department of Cardiovascular Medicine SECTION [...] 2019 with steadily rising gradients referred to [facility] for intervention -Followed by Dr. Hart from [place] for histoplasmosis, recent labs 12/19 show histo antigen negative -Followed by Dr. Messina from [facility]ology for and pericardial effusion last seen 08/27/23, then by Raji ROSALES 10/18/23 - awaiting evaluation for aortic valve intervention. Referred to [facility] for further management. Patient reports at baseline she is very limited due to joint pain in hands, wrists everywhere since being off RA treatment for histo. She uses cane in clinic today - seen in wheelchair. Reports at baseline lives at home alone with help from neighbors and friends - very active in taoism community.No family close by. No reported cardiac [...] COPD (chronic obstructive pulmonary disease) ([facility]) Disseminated histoplasmosis Colitis, immunosuppression, 01/2018. Diverticulosis of colon (without mention of hemorrhage) Diverticulosis DVT, recurrent, lower extremity, acute ([facility]) 12/10/2014 Esophageal reflux Hiatal hernia 02/25/2018 Hypertension Lung nodule Personal history of unspecified urinary disorder Rheumatoid arthritis involving multiple sites with positive rheumatoid factor (HCC) 03/07/2015 Dr. Hurley ([facility]) Unspecified hemorrhoids without mention of [...] SPINE FUSN,POST INTERBODY 2011 Dr. Armando at [facility]. Diskectomy and laminectomy PAST SURGICAL HISTORY OF 03/07/1999 removal facial lesion PAST SURGICAL HISTORY OF 08/17/2014 excision soft tissue mass left index finger TONSILLECTOMY PRIMARY/SECONDARY <AGE 14 TRANSCATH RETRIEVALJEVON 12/28/2006 Social History Tobacco Use Smoking status: [...] (FLONASE) 50 mcg/actuation nasal spray Use 1 [place] in each nostril once daily. pantoprazole DR (PROTONIX) 40 mg tablet Take 1 tablet by mouth once daily. vit A,C,L-Ujnu-Fmigfa (OCUVITE PRESERVISION) 2,148 mcg-113 mg-45 mg-17.4mg tab [...] We recommend a follow-up with [facility] clinic. [facility] STAFF PHYSICIAN NOTE OF PERSONAL [...] of Cardiovascular Medicine Heart, Vascular and Thoracic [facility] Desk [id number] [place] [address] Office - [phone] extension [phone] Office E-mail: [email or web address] Appointments: [phone] extension [phone] documented in this encounterTrihealth Bethesda [facility] Hospital11-07-2024 History of Present illness Narrative* Jimbo Swanson APRN.CNS - 12/27/2023 2:01 PM EST Coumadin 6mg Thurs and 5mg all other days and recheck in 2 weeks * Melissa Means RN - 12/27/2023 12:19 PM EST patient had inr completed at [facility] patients inr is 1.5 (patients [...] not agree with recommendation documented in this encounterTrihealth Bethes[facility] Hospital10-31-2024 History of Present illness Narrative* Rosa Wallace RN - 12/20/2023 11:22 AM EDT [facility] Telephonic Outreach Provider Action/FYI Contacted for: Engagement Contact made with patient: Yes Patient identified by name and date of . Discussed care with patient Outcomes: Patient switched from [facility] to telephone outreach Are you experiencing any new or worsening symptoms you need to talk about today? No Based on assessment coordinator, the following disposition is advised: No symptoms or symptoms present, not severe. Routed to: No Action Needed PAN Education Provided this Outreach: No Rosa Wallace RN December 20, 2023 11:29 AM documented in this encounterTrihealth [facility]10-31-2024 Telephone encounter Note * Telephone Encounter - Jimbo Swanson APRN.CNS - 12/20/2023 7:12 AM EDT ok [facility]10-31-2024 Miscellaneous Notes* Telephone Encounter - Jimbo [...] and send to pharmacy. documented in this encounterTrihealth Bet[facility]10-30-2024 History of Present illness Narrative* Rosa Wallace RN - 12/19/2023 3:54 PM EDT [facility] Telephonic Outreach Provider Action/SHAYNE Contacted for: Engagement Contact made with patient: No, left message. Rosa Wallace RN December 19, 2023 3:57 PM documented in this encounterTrihealth [facility]10-30-2024 Telephone encounter Note * Telephone Encounter - Migdalia Montoya LPN - 12/19/2023 10:06 AM EDT Patient is not able to fill her 1 mg Coumadin. Directions on script are different from what patientwas instructed to take verbally. Patient has been taking 6 mg ursday and 5 mg all other days. Rx that was sent on 12/12 has 6 mg Thursday and 4 mg all other days. Please update prescription and send to pharmacy. [facility]10-29-[facility] History of Present illness Narrative* Geno Hart MD - 12/18/2023 11:00 AM EDT Patient presents with: Disseminated histoplasmosis : Follow-up on itraconazole HPI: 78-year-old woman immunosuppressed due to rheumatoid arthritis on Biologics, COPD with bronchiectasis, previously treated by [facility] for disseminated histoplasmosis and did well. In February 2023 was transferred here from [facility] with massive hemoptysis found out to [...] relatively normal. She still active with her taoism and at meetings and professional organizations and [...] (FLONASE) 50 mcg/actuation nasal spray Use 1 [place] in each nostril once daily. [address] (PROTONIX) 40 mg tablet Take 1 tablet by mouth once daily. 90 tablet 3 vit A,C,C-Ncpi-Mavyof (OCUVITE PRESERVISION) 2,148 mcg-113 mg-45 mg-17.4mg tab [...] DVT, recurrent, lower extremity, acute ([facility]) 12/10/2014 Esophageal reflux Hiatal hernia 02/25/2018 Hypertension Lung nodule Personal history of unspecified urinary disorder Rheumatoid arthritis involving multiple sites with positive rheumatoid factor ([facility]) 03/07/2015 Dr. Hurley ([facility]) Unspecified hemorrhoids without mention of [...] SPINE FUSN,POST INTERBODY 2011 Dr. Armando at [facility]. Diskectomy and laminectomy PAST SURGICAL HISTORY OF 03/07/1999 removal facial lesion PAST SURGICAL HISTORY OF 08/17/2014 excision soft tissue mass left index finger TONSILLECTOMY PRIMARY/SECONDARY <AGE 14 TRANSCATH RETRIEVAL,PERCUT 12/28/2006 ACTIVE PROBLEM LIST Esophageal Reflux Meralgia Paresthetica Other Voice and Resonance Disorders Arthropathy, Unspecified, Site Unspecified Elevated Liver Enzymes [facility] Current Use of Anticoagulant Therapy Hnp (Herniated [...] reports reviewed. Great deal of time spent [id number] with the patient mostly in discussion Return in about 4 months (around 04/18/2024). documented in this encounterTrihealth [facility]10-24-2024 History of Present illness Narrative* Jimbo Swanson APRN.MUNICIPAL COURT MAGISTRATE - 12/13/2023 4:22 PM EDT Coumadin 6 mg and 5 mg all other days and check INR in 2 weeks. * Melissa Means, RN - 12/13/2023 1:17 PM EDT patient had inr completed at [facility] patients inr is 1.4 (patients [...] diet recommend: patient change coumadin to 6mg Thurs and 5mg all other days and recheck in 2 weeks patient has been scheduled for a 2 week follow up inr on 12/27/23 patient will need an rx for 1mg coumadin sent to [facility] (rx has been pended for approval) please review and advise on recommendation patient only needs called if provider does not agree with recommendation documented in this encounterTrihealth [facility]10-22-2024 Telephone encounter Note * Telephone Encounter [...] Mann LPN December 11, 2023 3:42 PM [facility]10-22-2024 Miscellaneous Notes* Telephone Encounter - Lynne [...] 11, 2023 3:42 PM documented in this encounterTrihealth [facility]10-10-2024 History of Present illness Narrative* Jimbo Swanson APRN.CNS - 11/29/2023 3:00 PM EDT Coumadin 5 mg daily and check INR in 2 weeks * Melissa Means RN - 11/29/2023 12:35 PM EDT patient had inr completed at [facility] patients inr is 2.3 (patients [...] not agree with recommendation documented in this encounterTrihealth [facility]10-07-2024 Telephone encounter Note * Telephone Encounter - Jannet Aldana RN - 11/26/2023 2:38 PM EDT Patient cannot come in this week, she has been rescheduled to 12-17. Jannet Aldana RN [facility] Work Phone: [phone]) 206-185710-07-2024 Miscellaneous Notes* Telephone Encounter - Jannet Aldana [...] 11/26/2023 10:38 AM EDT Labs received from [facility] that will be scanned. They recommended a follow up with ID due toCRP 7.8 mg/dL and ESR 93 mm/hr. Patient is scheduled on 01-08-24. Should her appointment be scheduled sooner? Thank you, Jannet Aldana RN documented in this encounterTrihealth Bethes[facility]10-07-2024 Telephone encounter Note * Telephone Encounter - Jannet Aldana RN - 11/26/2023 1:07 PM EDT Voicemail left for patient to return call. Jannet Aldana RN [facility]10-07-2024 Telephone encounter Note* Telephone Encounter - [...] week around December 16 through December 20. [facility] Work Phone: [phone] Telephone encounter Note* Telephone Encounter - Jannet Aldana RN - 11/26/2023 10:38 AM EDT Labs received from [facility] that will be scanned. They recommended a follow up with ID due toCRP 7.8 mg/dL and ESR 93 mm/hr. Patient is scheduled on 01-08-24. Should her appointment be scheduled sooner? Thank you, Jannet Aldana RN [facility]09-26-2024 Telephone encounter Note* Telephone Encounter - Jimbo Swanson APRN.CNS - 11/15/2023 4:53 PM EDT ok [facility]09-26-2024 Miscellaneous Notes* Telephone Encounter - Jimbo [...] can not be approved. documented in this encounterTrihealth Bethes[facility] Hospital09-26-2024 Telephone encounter Note * Telephone Encounter - Melissa Means RN - 11/15/2023 12:26 PM EDT patients orders for coumadin clinic inr's has at this time. new order has been pended for approval if possible so that patient can continue to get inr's completed thru the coumadin clinic. coumadin clinic nurse only needs called if order can not be approved. [facility]09-26-20[facility] History of Present illness Narrative* Melisas Means RN - 11/15/2023 12:24 PM EDT patient had inr completed at [facility] patients inr is 2.1 (patients [...] reading since dose change documented in this encounterTrihealth [facility]09-19-2024 History of Present illness Narrative* Melissa Means RN - 11/08/2023 4:20 PM EDT pcp agrees with information * Melissa Means RN - 11/08/2023 2:00 PM EDT patient had inr completed at [facility] patients inr is 2.8 (patients inr range is 1.7-2.2) patient is currently taking 7.5mg Tues,Thurs and 5mg all other days per DATABASE ADMIN Swanson patients last dose change was on [...] not agree with recommendation documented in this encounterTrihealth Bethes[facility]09-16-2024 Telephone encounter Note * Telephone Encounter - Claudine Durán MD - 11/05/2023 4:53 PM EDT The following approved medication requests have been transmitted electronically. Requested Prescriptions Pending Prescriptions Disp Refills itraconazole (SPORANOX) 10 mg/mL solution 1200 mL 0 Sig: Take 20 mL by mouth two times a day. Claudine Durán MD [facility]09-16-2024 Miscellaneous Notes* Telephone Encounter - Claudine [...] day. ALLERGIES Allergen Reactions Penicillins Hives (home) [phone] (cell) Last Office Visit Date: 10/11/2023 Last [facility] Visit: Visit date not found Future Appointment: 02/29/2024 The patients preferred pharmacy has been captured for this encounter? yes Request is for script(s) to be escript to pharmacy. Yessica Pelayo LPN documented in this encounterTrihealth Bethesda [facility] Hospital09-16-2024 Telephone encounter Note * Telephone Encounter - Yessica Pelayo LPN - 11/05/2023 11:28 AM EDT Patient MyChart message requesting the following refill Refill(s) Requested: Requested Prescriptions Pending Prescriptions Disp Refills itraconazole (SPORANOX) 10 mg/mL solution 1200 mL 0 Sig: Take 20 mL by mouth two times a day. ALLERGIES Allergen Reactions Penicillins Hives (home) [phone] (cell) Last Office Visit Date: 10/11/2023 Last [facility] Visit: Visit date not found Future Appointment: 02/29/2024 The patients preferred pharmacy has been captured for this encounter? yes Request is for script(s) to be escript to pharmacy. Yessica Pelayo LPN [facility]09-10-2024 Telephone encounter Note* Telephone Encounter - Ashley Rahman MA - 10/30/2023 2:51 PM EDT Forms were successfully faxed to [phone] to [facility]. Form placed in PSS basket for scanning. [facility]09-10-[facility]24 Miscellaneous Notes* Telephone Encounter - Ashley Rahman MA - 10/30/2023 2:51 PM EDT Forms were successfully faxed to [phone] to [facility]. Form placed in PSS basket for scanning. documented in this encounterTrihealth Bethesda [facility] Hospital09-06-2024 History of Present illness Narrative* Yesenia Weinstein LPN - 10/26/2023 3:59 PM EDT Patient was given coumadin instructions and verbalized understanding. * Jimbo Swanson APRN.CNS - 10/25/2023 3:30 PM EDT Recommend Coumadin 7.5 Sunday and and 5 mg all other days. Check INR in 2 weeks * Melissa Means RN - 10/25/2023 12:34 PM EDT patient had inr completed at [facility] patients inr is 1.3 (patients [...] in diet recommend: patient change coumadin 7.5mg Thurs and 5mg all other days and recheck in 2 weeks patient has been scheduled for a 2 week follow up inr on 11/08/23 please review and advise on recommendation patient only needs called if provider does not agree with recommendation documented in this encounterTrihealth Bethesda [facility]09-04-2024 Telephone encounter Note * Telephone Encounter - Claudine Durán MD - 10/24/2023 5:14 PM EDT The following approved medication requests have been transmitted electronically. Requested Prescriptions Signed Prescriptions Disp Refills warfarin (COUMADIN) 5 mg tablet 90 tablet 3 Sig: Take 1 tablet by mouth once daily. or as directed Authorizing Provider: CLAUDINE DURÁN MD [facility]09-04-2024 Miscellaneous Notes* Telephone Encounter - Claudine [...] you. Maritza Preston LPN. documented in this encounterTrihealth Bethesda North Hospital09-03-2024 Telephone encounter Note * Telephone Encounter [...] Please advise. Thank you. Maritza Preston LPN. [facility]08-30-20[facility] History of Present illness Narrative* Melissa Means RN - 10/19/2023 3:22 PM EDT pcp agrees with information * Melissa Means RN - 10/19/2023 11:54 AM EDT patient had inr completed at [facility] patients inr is 1.1 (patients [...] not agree with recommendation documented in this encounterTrihealth Bethesda North Hospital08-29-2024 Instructions* Patient Instructions* Bibi Alegria APRN.CNP [...] your appointment with the valve team at [facility]. 5. Follow up with Dr. Messina in 3-4 months with echo prior documented in this encounterTrihealth Bethesda North Hospital08-29-2024 History of Present illness Narrative* Bibi Alegria APRN.CNP - 10/18/2023 10:00 AM EDT Images from the original note were not included. Heart and Vascular [facility] Department of Cardiovascular Medicine SECTION OF CLINICAL CARDIOLOGY OUTPATIENT VISIT DATE October 18, 2023 OUTPATIENT VISIT TYPE ESTABLISHED PRIMARY CARE PHYSICIAN: Claudine Durán [address] [place] [address] CHIEF COMPLAINT: 1 month follow up HISTORY [...] who referred her to valve clinic at [facility]. She denies any chest pain, palpitations, sh ortness of breath, lightheadedness, dizziness, presyncope, syncope, orthopnea, or PND. Subjective PAST MEDICAL HISTORY No date: Anemia Comment: Bone marrow involvement with histoplasmosis No date: Bronchiectasis ([facility]) No date: COPD (chronic obstructive pulmonary disease) ([facility]) No date: Disseminated histoplasmosis Comment: Colitis, immunosuppression, 01/2018. No date: Diverticulosis of colon (without mention of hemorrhage) Comment: Diverticulosis 12/10/2014: DVT, recurrent, lower extremity, acute ([facility]) No date: Esophageal reflux 02/25/2018: Hiatal hernia No date: Hypertension No date: Lung nodule No date: Personal history of unspecified urinary disorder 03/07/2015: Rheumatoid arthritis involving multiple sites with positive rheumatoid factor ([facility]) Comment: Dr. Hurley ([facility]) No date: Unspecified hemorrhoids without mention of [...] 12/28/2006: INTRO. OF CATH SUP/INF VENA CAVA 2011: LUMBAR SPINE FUSN,POST INTERBODY Comment: Dr. Armando at [facility]. Diskectomy and laminectomy 03/07/1999: PAST [...] fluticasone (FLONASE) 50 mcg/actuation nasal spray^Use 1 [place] in each nostril once daily.^Disp: 3 Each^Rfl: 3 vit A,C,S-Jpvl-Xsrybf (OCUVITE PRESERVISION) 2,148 mcg-113 mg-45 mg-17.4mg tab^Take [...] ECGS AVAILABLE Confirmed by MD KEESHA, MIRIAN ([id number]) on 03/29/2023 8:55:[address] Result [...] calcified granuloma middle mediastinum. Small hiatal hernia Science Instructor: PSCB Transcribe Date/Time: Sep 05 2023 12:56P [...] avoid significant preload depletion - Referred to [facility] for valve intervention by PCP [...] has been referred for valve intervention at [facility] by her PCP and is [...] should need arise. CONTACT INFORMATION: Bibi Alegria APRN.SANTY Cardiology Nurse Practitioner Section of Regional Cardiology [facility] Dept of Cardiovascular Medicine [facility] [place] [address] [place] [address] Office Office This note was partially generated using GoGoVan voice recognition system and may contain errors related to that system including grammar, punctuation, spelling, and words that may be inappropriate documented in this encounterTrihealth Bethesda North Hospital08-28-2024 History of Present illness Narrative* Ilda Miller RN - 10/17/2023 3:43 PM EDT [facility] Telephonic Outreach Provider Candelaria/SHAYNE N/A Contacted for: Engagement Last questionnaire completed: 08/31/23 My Chart reminder letter sent 10/02/23 No response to date to My Chart questionnaire. Contact made with patient: No, left message. Ilda Miller RN October 17, 2023 3:48 PM documented in this encounterTrihealth Bethesda [facility] Hospital08-22-2024 Instructions* Patient Instructions* Jimbo Swanson APRN.CNS - 10/11/2023 1:48 PM EDT Let us know right away if having any chest pain or feeling dizzy or like you could pass out or if you do pass out. Okay to use diclofenac gel on your knees. Try using acetaminophen hydrocodone as needed for pain of your knees. documented in this encounterTrihealth Bethesda [facility] Hospital08-22-2024 History of Present illness Narrative* Jimbo [...] bicuspid valve, lung nodule bronchiectasis and COPD. Securities Settlement Processor: Florence Collins MD, for follow-up of lung nodules bronchiectasis. Clinical Fellow: Jane Montoya MD [facility]. Not taking Humira or methotrexate due to histoplasmosis, expects treatment to be completed in December. She notes significant knee pain. Has been using [id number] topical diclofenac. She was seen by Claudine Durán MD in May 2023 for follow-up appointment after discharge from [facility] after being in TCU after hospitalization. She [...] was referred for to orthopedic physician versus silverer for this at her earliest convenience. She was then seen by Twyla Cuevas 08/08/2023 for follow-up regarding flareup of rheumatoid arthritisand swelling of her lower legs. She was treated with prednisone tapering dose furosemide 20 mg daily x 5 days, then as needed. She was then admitted to [facility] for GI bleed July 2023. She [...] fluticasone (FLONASE) 50 mcg/actuation nasal spray^Use 1 [place] in each nostril once daily.^Disp: 3 Each^Rfl: [address] (PROTONIX) 40 mg tablet^Take 1 tablet by mouth once daily.^Disp: 90 tablet^Rfl: 3 vit A,C,J-Apic-Khvklf (OCUVITE PRESERVISION) 2,148 mcg-113 mg-45 mg-17.4mg tab^Take [...] No date: COPD (chronic obstructive pulmonary disease) ([facility]) No date: Disseminated histoplasmosis Comment: [...] positive rheumatoid factor (HCC) Comment: Dr. Hurley ([facility]) No date: Unspecified hemorrhoids without mention of [...] the prior CC echocardiographic exam performed on 09/22/2022([facility]). The mitral and aortic valve gradients [...] - CONSULT TO CARDIOLOGY - Dr Roche [facility] 4. Gastrointestinal hemorrhage, unspecified gastrointestinal [...] Level: 4 - Moderate documented in this encounterTrihealth Bethesda [facility] Hospital08-09-2024 Telephone encounter Note * Telephone Encounter - Yesenia Weinsteni LPN - 09/28/2023 10:19 AM EDT Prescription [...] Weinstein LPN September 28, 2023 10:21 AM [facility]08-09-2024 Miscellaneous Notes* Telephone Encounter - Yesenia [...] 28, 2023 10:21 AM documented in this encounterTrihealth Bethes[facility] North [facility]08-08-2024 History of Present illness Narrative* Melissa Means RN - 09/27/2023 3:36 PM EDT pcp agrees with information * Melissa Means RN - 09/27/2023 12:06 PM EDT patient had inr completed at [facility] patients inr is 1.3 (patients [...] recheck after restarting it documented in this encounterTrihealth Bethes[facility]08-05-2024 History of Present illness Narrative* Claudine Durán MD - 09/24/2023 8:11 AM EDT This note was created using CollabRxriter. Subjective Haydee Bustamante is a 78 year old female. Patient presents with: Hospital F/U: [facility] ED/Hospital discharge 08/18/23 SUBJECTIVE: Haydee Bustamante is [...] marrow involvement with histoplasmosis No date: Bronchiectasis ([facility]) No date: COPD (chronic obstructive pulmonary disease) ([facility]) No date: Disseminated histoplasmosis Comment: Colitis, immunosuppression, 01/2018. No date: Diverticulosis of colon (without mention of hemorrhage) Comment: Diverticulosis 12/10/2014: DVT, recurrent, lower extremity, acute ([facility]) No date: Esophageal reflux 02/25/2018: Hiatal hernia No date: Hypertension No date: Lung nodule No date: Personal history of unspecified urinary disorder 03/07/2015: Rheumatoid arthritis involving multiple sites with positive rheumatoid factor ([facility]) Comment: Dr. Hurley ([facility]) No date: Unspecified hemorrhoids without mention of [...] (FLONASE) 50 mcg/actuation nasal spray Use 1 [place] in each nostril once daily. pantoprazole DR (PROTONIX) 40 mg tablet Take 1 tablet by mouth once daily. vit A,C,F-Heir-Qrqloi (OCUVITE PRESERVISION) 2,148 mcg-113 mg-45 mg-17.4mg tab [...] AM EDT This note was created using CollabRxriter. Subjective Haydee Bustamante is a 78 year old female. Patient presents with: Hospital F/U: [facility] ED/Hospital discharge 08/18/23 SUBJECTIVE: Haydee Bustamante is [...] COPD (chronic obstructive pulmonary disease) ([facility]) Disseminated histoplasmosis Colitis, immunosuppression, 01/2018. Diverticulosis of colon (without mention of hemorrhage) Diverticulosis DVT, recurrent, lower extremity, acute ([facility]) 12/10/2014 Esophageal reflux Hiatal hernia 02/25/2018 Hypertension Lung nodule Personal history of unspecified urinary disorder Rheumatoid arthritis involving multiple sites with positive rheumatoid factor ([facility]) 03/07/2015 Dr. Hurley ([facility]) Unspecified hemorrhoids without mention of [...] (FLONASE) 50 mcg/actuation nasal spray Use 1 [place] in each nostril once daily. pantoprazole DR (PROTONIX) 40 mg tablet Take 1 tablet by mouth once daily. vit A,C,H-Zaiw-Ewqabm (OCUVITE PRESERVISION) 2,148 mcg-113 mg-45 mg-17.4mg tab [...] sleep. Claudine Durán MD documented in this encounterTrihealth Bethes[facility]08-02-2024 History of Present illness Narrative* Twyla Cuevas APRN.CNP - 09/21/2023 2:36 PM EDT Noted and agree, thank you! * Melissa Means, PAULA - 09/21/2023 2:33 PM EDT patient had inr completed at [facility] patients inr is 2.4 (patients [...] not agree with recommendation documented in this encounterTrihealth [facility]hes[facility]07-17-2024 Telephone encounter Note * Telephone Encounter - Thi Zambrano OCCA - 09/05/2023 8:48 AM EDT TC to patient who is informed of providers message and is agreeable to starting spironolactone. CARMEN Viveros [facility]07-17-2024 Miscellaneous Notes* Telephone Encounter - Thi [...] save her potassium. I sent this to [facility]. * Telephone Encounter - Maritza Preston [...] of breath, Patient had CBC done at [facility] yesterday. Patient does not have letter for [...] message. * Telephone Encounter - Twyla Cuevas APRN.SANTY - 09/04/2023 4:05 PM EDT Lab testing shows kidney function stable, potassium is low. Please see how often she has been taking her lasix and how often she is currently taking her potassium pills. documented in this encounterTrihealth [facility]07-17-2024 Telephone encounter Note * Telephone Encounter - Twyla Cuevas APRN.CNP - 09/05/2023 7:18 AM EDT Okay, to help the swelling and the potassium I am going to send in spironolactone for her to start,it is a potassium sparing diuretic, it should help with the swelling but will also help save her potassium. I sent this to [facility]. [facility]07-16-2024 Telephone encounter Note* Telephone Encounter - [...] of breath, Patient had CBC done at [facility] yesterday. Patient does not have letter for Handicapped Swathi written 08/22/2023, asking for another copy to be mailed to her. Put on nurse's counter for Dr. Durán to sign, addressed envelope ready. Maritza Preston LPN [facility]07-16-2024 Telephone encounter Note* Telephone Encounter - Geni Cintron LPN - 09/04/2023 4:20 PM EDT Attempted to reach patient with no answer and unable to leave a message. [facility]07-16-[facility]24 Telephone encounter Note* Telephone Encounter - Twyla Cuevas APRN.SANTY - 09/04/2023 4:05 PM EDT Lab testing shows kidney function stable, potassium is low. Please see how often she has been taking her lasix and how often she is currently taking her potassium pills. [facility]07-12-2024 History of Present illness Narrative* Ilda Miller RN - 08/31/2023 12:15 PM EDT CDM Telephonic Outreach Provider Action/FYI N/A Contacted for: Engagement & SDOH screening for food insecurity and transportation -no needs identified Last questionnaire completed: 03/13/23 My Chart reminder letter sent 04/16/23, 08/07/23 Telephonic outreach: 07/05/23-left VM No response to date to My Chart questionnaire. Of note: Recent [facility] discharge 08/18/23 Contact made with patient: Yes Patient identified by name and date of . Discussed care with patient Outcomes: Patient forgot, reminder given Are you experiencing any new or worsening symptoms you need to talk about today? No Based on assessment coordinator, the following disposition is advised: No symptoms or symptoms present, not severe. Routed to: No Action Needed PAN Education Provided this Outreach: No Upcoming appointments reviewed: Appointments for Next 60 Days Date Time Provider Location Dept Phone 09/20/2023 10:00 AM ANTICOAG [facility] [phone] 09/28/2023 10:30 AM [facility] [phone] 10/11/2023 1:00 PM JIMBO SWANSON [facility] [phone] 10/18/2023 10:00 AM [facility] [phone] Ilda Miller RN August 31, 2023 12:38 PM documented in this encounterTrihealth [facility]07-12-2024 Telephone encounter Note * Telephone Encounter [...] Quintanilla LPN August 31, 2023 9:30 AM [facility]07-12-2024 Miscellaneous Notes* Telephone Encounter - Danita [...] 31, 2023 9:30 AM documented in this encounterTrihealth [facility]hes[facility]07-11-2024 History of Present illness Narrative* Melissa Means RN - 08/30/2023 3:46 PM EDT pcp agrees with information * Melissa Means RN - 08/30/2023 1:13 PM EDT patient had inr completed at [facility] patients inr is 1.9 (patients [...] for follow up INR. documented in this encounterTrihealth [facility]07-11-2024 History of Present illness Narrative* Faviola Anthony, [...] PATIENT PRESENTS WITH AN IMPLANTABLE OR ATTACHED NURSERY LABORER: No RADIOLOGY DEPARTMENT: CT; Exam(s) Completed: Chest PERIPHERAL IV DATA: Not applicable SIGNED BY: RT Maryann(R) August 30, 2023 3:28 PM documented in this encounterTrihealth [facility]hes[facility]07-09-2024 History of Present illness Narrative* Geno Hart MD - 08/28/2023 9:00 AM EDT Patient presents with: Histoplasmosis : Disseminated due to immunocompromising meds HPI: 78-year-old woman with rheumatoid arthritis on Biologics, COPD and bronchiectasis, in the past found to have recurrent disseminated histoplasmosis and [facility] physician[facility] such with appropriate management. Went into the hospital in March transferred to [facility] from [place] for what was felt to be massive hemoptysis which did not income tax return preparer to be that bad. She also had [...] She at one point went back to [place] for some type of edema that caused open sores on her legs which got treated in the hospital and became better. Currently states no fevers or chills. The prior horrible cough she had at the [facility] after hospitalization is gone. She has no wasting, appetite loss severe shortness of breath, current hemoptysis. She has no problem with her bowels except 2 weeks ago had a rectal bleed ended up seeing a videographer in [facility] and after 3 units of blood did well. She had a 6-day admission and Dr. Orellana videographer did an EGD with duodenal bleeding ulcer [...] (FLONASE) 50 mcg/actuation nasal spray Use 1 [place] in each nostril once daily. [address] (PROTONIX) 40 mg tablet Take 1 tablet by mouth once daily. 90 tablet 3 vit A,C,K-Jjts-Ihznrr (OCUVITE PRESERVISION) 2,148 mcg-113 mg-45 mg-17.4mg tab [...] COPD (chronic obstructive pulmonary disease) ([facility]) Disseminated histoplasmosis Colitis, immunosuppression, 01/2018. Diverticulosis of colon (without mention of hemorrhage) Diverticulosis DVT, recurrent, lower extremity, acute ([facility]) 12/10/2014 Esophageal reflux Hiatal hernia 02/25/2018 Hypertension Lung nodule Personal history of unspecified urinary disorder Rheumatoid arthritis involving multiple sites with positive rheumatoid factor ([facility]) 03/07/2015 Dr. Hurley ([facility]) Unspecified hemorrhoids without mention of [...] SPINE FUSN,POST INTERBODY 2012 Dr. Armando at [facility]. Diskectomy and laminectomy PAST SURGICAL HISTORY OF 03/07/1999 removal facial lesion PAST SURGICAL HISTORY OF 08/17/2014 excision soft tissue mass left index finger TONSILLECTOMY PRIMARY/SECONDARY <AGE 12 TRANSCATH RETRIEVAL,PERCUT 12/28/2006 ACTIVE PROBLEM LIST Esophageal Reflux Meralgia Paresthetica Other Voice and Resonance Disorders Arthropathy, Unspecified, Site Unspecified Elevated Liver Enzymes [facility] Current Use of Anticoagulant Therapy Hnp (Herniated [...] 4 months (around 12/29/2023). documented in this encounterTrihealth [facility]07-08-2024 Telephone encounter Note * Telephone Encounter - Ashley Rahman MA - 08/27/2023 9:59 AM EDT Please call Pt to schedule Limited Echo prior to next OV with Bibi Alegria. [facility]07-08-2024 Miscellaneous Notes* Telephone Encounter - Ashley Rahman MA - 08/27/2023 9:59 AM EDT Please call Pt to schedule Limited Echo prior to next OV with Bibi Alegria. documented in this encounterTrihealth [facility]07-08-2024 NoteHNO ID: [id number] Author: WILLIAM MESSINA, DO Service: ? Author Type: Physician Type: Progress Notes Filed: 08/27/2023 14:47 Note Text: [facility] SECTION OF REGIONAL CARDIOLOGY [facility] OUTPATIENT VISIT DATE August 27, 2023 PRIMARY CARE PHYSICIAN: Claudine Durán [address] [place] [address] HISTORY OF PRESENT ILLNESS: Ms. Bustamante is [...] DVT, recurrent, lower extremity, acute ([facility]) 12/10/2014 Esophageal reflux Hiatal hernia 02/25/2018 Hypertension Lung nodule Personal history of unspecified urinary disorder Rheumatoid arthritis involving multiple sites with positive rheumatoid factor ([facility]) 03/07/2015 Dr. Hurley ([facility]) Unspecified hemorrhoids without mention of complication Hemorrhoids PAST SURGICAL HISTORY Procedure Laterality Date COLONOSCOPY FLX DX W/COLLJ SPEC WHEN PFRMD 10/2003 Colonoscopy COLONOSCOPY FLX DX W/COLLJ SPEC WHEN PFRMD 05/18/2014 Colonoscopy COLONOSCOPY (more content not included)...[id number] History of Present illness Narrative* William Messina, - 08/27/2023 8:28 AM EDT Images from the original note were not included. [facility] SECTION OF REGIONAL CARDIOLOGY [facility] OUTPATIENT VISIT DATE August 27, 2023 PRIMARY CARE PHYSICIAN: Claudine Durán [address] [place] [address] HISTORY OF PRESENT ILLNESS: Ms. Bustamante is [...] DVT, recurrent, lower extremity, acute ([facility]) 12/10/2014 Esophageal reflux Hiatal hernia 02/25/2018 Hypertension Lung nodule Personal history of unspecified urinary disorder Rheumatoid arthritis involving multiple sites with positive rheumatoid factor ([facility]) 03/07/2015 Dr. Hurley ([facility]) Unspecified hemorrhoids without mention of [...] SPINE FUSN,POST INTERBODY 2012 Dr. Armando at [facility]. Diskectomy and laminectomy PAST SURGICAL [...] (FLONASE) 50 mcg/actuation nasal spray Use 1 [place] in each nostril once daily. pantoprazole DR (PROTONIX) 40 mg tablet Take 1 tablet by mouth once daily. vit A,C,B-Cpxv-Ahdfvj (OCUVITE PRESERVISION) 2,148 mcg-113 mg-45 mg-17.4mg tab [...] to 7 days. William Messina DO, FACC, FACOI Advertising Editor, [facility] Ambulatory Cardiology Advertising Editor, [facility] Cardiac Rehabilitation Advertising Editor, [facility] Cardiac Rehabilitation Advertising Editor, [facility] Cong[facility] Advertising Editor, [facility] Ambulatory Cardiology Clinical Tester Wafer Substrate Profressor of Medicine, [facility] of [facility] - [facility] Staff Senior Sourcing Manager, Les Pierce Department of Cardiovascular Medicine/Heart and Vascular [place], [facility] Please note: This note has been produced using speech recognition software and may contain errors related to that system including madelyn, punctuation, spelling, words, gender and phrases that may be inappropriate. documented in this encounterTrihealth [facility]07-05-2024 Telephone encounter Note * Telephone Encounter [...] Scheduled pt with Dr. Messina next week. [facility]07-05-2024 Miscellaneous Notes* Telephone Encounter - Gracy [...] since d/c from hospital. documented in this encounterTrihealth [facility]07-05-2024 Telephone encounter Note * Telephone Encounter - Shirley Mccloud - 08/24/2023 3:53 PM EDT Pt called back and would like to speak to the nurses about her issues. [facility]07-05-2024 Telephone encounter Note* Telephone Encounter - [...] how pt wasdoing since d/c from hospital. [facility]07-03-2024 History of Present illness Narrative* Melissa Means RN - 08/22/2023 4:20 PM EDT pcp agrees with information * Melissa Means RN - 08/22/2023 10:02 AM EDT patient had inr completed at [facility] patients inr is 1.1 (patients [...] not agree with recommendation documented in this encounterTrihealth [facility]07-03-2024 Instructions* Patient Instructions* Claudine Durán MD [...] 1 to 2 weeks. documented in this encounterTrihealth [facility]06-20-2024 History of Present illness Narrative* Jimbo Swanson APRN.CNS - 08/09/2023 11:42 AM EDT Continue with current Coumadin dose unchanged and check INR in 2 weeks * Melissa Means RN - 08/09/2023 10:19 AM EDT patient had inr completed at [facility] patients inr is 2.1 (patients [...] reading since dose change documented in this encounterTrihealth [facility]06-19-2024 History of Present illness Narrative* Twyla Cuevas APRN.DIE PRESSER - 08/08/2023 2:37 PM EDT SUBJECTIVE Haydee [...] 4 hours as needed. Mucus Clearing Device (Blue PillarAKE VIBRATORY PEP) renetta Provide 1 device warfarin (COUMADIN) 5 mg tablet take 1 AND 1/2 tablets by mouth once daily ON SUNDAY, SUNDAY, SUNDAY, SUNDAY AND SUNDAY and 1 tablet by mouth once daily ON SUNDAY AND SUNDAY FOLIC ACID ORAL Take by mouth. fluticasone (FLONASE) 50 mcg/actuation nasal spray Use 1 [place] in each nostril once daily. vit A,C,H-Oqan-Wqfbsn (OCUVITE PRESERVISION) 2,148 mcg-113 mg-45 mg-17.4mg tab [...] Skin (Hcc) - 07/11/2022 Copd Without Exacerbation ([facility]) - 08/28/2019 Comment: Moderate obstruction 03/2019 and 08/2019 PFTs. Bronchiectasis Without Complication ([facility]) - 04/26/2019 Comment: Continue present [...] Comment: Added automatically from request for surgery [id number] Ddd (Degenerative Disc Disease), Lumbar - 07/30/2017 Spondylolisthesis of Lumbar Region - 07/30/2017 History of Recurrent Deep Vein Thrombosis (Dvt) - 10/29/2016 Pain in Right Hip - 05/05/2016 Low Back Pain With Right-Sided Sciatica - 05/05/2016 Essential Hypertension - 03/07/2015 Rheumatoid Arthritis (Hcc) - 03/07/2015 Comment: Dr. Hurley ([facility]) Ganglion Cyst - 08/17/2014 Atrophic Vaginitis - 03/06/2013 Hnp (Herniated Nucleus Pulposus), Lumbar - 03/20/2011 Elevated Liver Enzymes - 04/01/2009 [facility] Current Use of Anticoagulant Therapy - 04/01/2009 [...] appointment.. Twyla Cuevas APRN-SANTY documented in this encounterTrihealth Bethes[facility]06-18-2024 Telephone encounter Note * Telephone Encounter [...] CARMEN Viveros August 07, 2023 8:47 AM [facility]-18[facility]24 Miscellaneous Notes* Telephone Encounter - Thi [...] 07, 2023 8:47 AM documented in this encounterTrihealth Bethesda [facility]06-11-2024 Telephone encounter Note * Telephone Encounter [...] LPN July 31, 2023 11:34 AM ] [facility]06-[facility]24 Miscellaneous Notes* Telephone Encounter - Lynne [...] 2023 11:34 AM ] documented in this encounterTrihealth Bethesda [facility] Hospital06-10-2024 Telephone encounter Note * Telephone Encounter [...] Patel MA July 30, 2023 9:25 AM [facility]-10[facility]2024 Miscellaneous Notes* Telephone Encounter - Danielle [...] 30, 2023 9:25 AM documented in this encounterTrihealth Bethesda [facility] Hospital06-06-2024 History of Present illness Narrative* Lauren Bowens APRN.CNP - 07/26/2023 3:21 PM EDT Agree with below recommendations. Lauren Bowens APRN.CNP * Melissa Means RN - 07/26/2023 11:06 AM EDT patient had inr completed at [facility] patients inr is 1.6 (patients [...] not agree with recommendation documented in this encounterTrihealth Bethesda [facility]06-03-2024 Telephone encounter Note * Telephone Encounter [...] in August and will discuss with him. [facility]06-[facility] Miscellaneous Notes* Telephone Encounter - Yesenia [...] advise, Lulu Quigley RN documented in this encounterTrihealth Bethesda [facility] Hospital06-01-2024 Telephone encounter Note * Telephone Encounter [...] a day. Authorizing Provider: CLAUDINE DURÁN MD [facility]05-31-2024 Telephone encounter Note* Telephone Encounter - [...] Please review and advise, Lulu Quigley RN [facility]05-29-2024 Telephone encounter Note* Telephone Encounter - Claudine Durán MD - 07/18/2023 1:17 PM EDT The following approved medication requests have been transmitted electronically. Requested Prescriptions Pending Prescriptions Disp Refills itraconazole (SPORANOX) 10 mg/mL solution 1200 mL 0 Sig: Take 20 mL by mouth two times a day. Claudine Durán MD [facility]05-29-2024 Miscellaneous Notes* Telephone Encounter - Claudine [...] you. Danielle Patel MA. documented in this encounterTrihealth Bethes[facility]05-28-2024 Telephone encounter Note * Telephone Encounter [...] Please advise. Thank you. Danielle Patel MA. [facility]05-[facility]24 Telephone encounter Note* Telephone Encounter - Jimbo Swanson APRN.CNS - 07/13/2023 12:00 PM EDT OK please schedule with ortho [facility]05-24-2024 Miscellaneous Notes* Telephone Encounter - Jimbo Swanson APRN.CNS - 07/13/2023 12:00 PM EDT OK please schedule with ortho * Telephone Encounter - Diana Evans LPN - 07/13/2023 9:17 AM EDT Patient aware of results and provider recommended follow up. Patient would like to see an orthopedic Provider [place] in [place] at the [facility]. Aware may need to be scheduled [...] her knee. Would recommend seeing orthopedist or silverer for this at her earliest convenience, check to see if prednisone is helping. Left message. documented in this encounterTrihealth Bethesda [facility]05-24-2024 Telephone encounter Note * Telephone Encounter - Diana Evans LPN - 07/13/2023 9:17 AM EDT Patient aware of results and provider recommended follow up. Patient would like to see an orthopedic Provider [place] at the [facility]. Aware may need to be scheduled [...] pain and less edema. Diana Evans LPN [facility]05-23-2024 Telephone encounter Note* Telephone Encounter - Yesenia Weinstein LPN - 07/12/2023 3:44 PM EDT No answer. Left message for patient to call office and ask to speak to a nurse regarding Ultrasoundresults [facility]05-23-2024 Telephone encounter Note* Telephone Encounter - Jimbo Swanson APRN.CNS - 07/12/2023 3:14 PM EDT No thrombophlebitis or DVT. Does have fluid collection at her knee. Would recommend seeing orthopedist or silverer for this at her earliest convenience, check to see if prednisone is helping. Left message. [facility] History of Present illness Narrative* Jimbo Swanson APRN.CNS - 07/12/2023 3:08 PM EDT Continue Coumadin dose unchanged and check INR in 2 weeks * Melissa Means RN - 07/12/2023 10:12 AM EDT patient had inr completed at [facility] patients inr is 1.8 (patients [...] reading since dose change documented in this encounterTrihealth Bethesda [facility]05-21-2024 History of Present illness Narrative* Jimbo Swanson APRN.MUNICIPAL COURT MAGISTRATE - 07/10/2023 1:53 PM EDT SUBJECTIVE: RSV [...] bicuspid valve, lung nodule bronchiectasis and COPD. Securities Settlement Processor: Florence Collins MD, for follow-up of lung nodules bronchiectasis. Noted are a likely etiology for underlying bronchiectasis. Senior Sourcing Manager: William Messina BAV, aortic stenosis. Clinical Fellow: [facility]. Reports currently not taking Humira or methotrexate due to histoplasmosis. Infectious disease Dr. Hart, August appointment. She was seen by his PCP in May 2023 [facility]. She was [...] fluticasone (FLONASE) 50 mcg/actuation nasal spray^Use 1 [place] in each nostril once daily.^Disp: 3 Each^Rfl: 3 vit A,C,X-Ykaw-Syfnon (OCUVITE PRESERVISION) 2,148 mcg-113 mg-45 mg-17.4mg tab^Take [...] COPD (chronic obstructive pulmonary disease) ([facility]) Disseminated histoplasmosis Colitis, immunosuppression, 01/2018. Diverticulosis of colon (without mention of hemorrhage) Diverticulosis DVT, recurrent, lower extremity, acute ([facility]) 12/10/2014 Esophageal reflux Hiatal hernia 02/25/2018 Hypertension Lung nodule Personal history of unspecified urinary disorder Rheumatoid arthritis involving multiple sites with positive rheumatoid factor ([facility]) 03/07/2015 Dr. Hurley ([facility]) Unspecified hemorrhoids without mention of [...] Level: 4 - Moderate documented in this encounterTrihealth Bethesda [facility] Hospital05-16-2024 History of Present illness Narrative* Melissa Means RN - 07/05/2023 4:27 PM EDT PATIENT NOTIFIED OF INFORMATION * Jimbo Swanson APRN.CNS - 07/05/2023 2:21 PM EDT Agree hold Coumadin today and then take 5 mg daily starting tomorrow and check INR in 1 week * Melissa Means RN - 07/05/2023 1:48 PM EDT patient had inr completed at [facility] patients inr is 3.5 (patients inr range is 1.7-2.2) patient is currently taking 5mg Mon,Wed and 7.5mg all other days patients last dose change unknown as this is the dose she was told at [place] discharge patient has had no changes in medication and no missed doses and no change in diet recommend: patient hold dose today and then go to 5mg daily and recheck in 1 week patient has been scheduled for a 1 week follow up inr on 07/12/23 please review and advise on recommendation documented in this encounterTri[facility]05-16-[facility]24 History of Present illness Narrative* Ilda Miller RN - 07/05/2023 4:00 PM EDT [facility] Telephonic Outreach Provider Action/FYI N/A Contacted for: Engagement Last questionnaire completed: 03/13/23 My Chart reminder letter sent 04/16/23 No response to date to My Chart questionnaire. Contact made with patient: No, left message. Ilda Miller RN July 05, 2023 4:04 PM documented in this encounterTrihealth [facility]hes[facility]05-13-2024 Telephone encounter Note * Telephone Encounter [...] 10/11/2023 Please advise. Thank you. CARMEN Viveros. [facility]05-13-2024 Miscellaneous Notes* Telephone Encounter - Thi [...] Thank you. CARMEN Viveros. documented in this encounterTrihealth [facility]05-13-2024 Telephone encounter Note * Telephone Encounter [...] Please advise. Thank you. Danielle Patel MA. [facility]05-13-2024 Miscellaneous Notes* Telephone Encounter - Danielle [...] you. Danielle Patel MA. documented in this encounterTrihealth [facility]04-23-2024 Telephone encounter Note * Telephone Encounter - Brittany Cedillo LPN - 06/12/2023 2:59 PM EDT Pt has not reviewed the my chart message. Message left to her home number to either review the my chart message or call back to spoke to a nurse. [facility]04-23-[facility]24 Miscellaneous Notes* Telephone Encounter - Brittany [...] Thank you. Dionne Nunez. documented in this encounterTrihealth [facility]04-19-2024 Telephone encounter Note * Telephone Encounter - Brittany Cedillo LPN - 06/08/2023 10:05 AM EDT Pt notified via my chart. [facility]04-19-[facility] Telephone encounter Note* Telephone Encounter - [...] two times a day. Claudine Durán MD [facility]04-18-2024 Telephone encounter Note* Telephone Encounter - [...] advise. Thank you. Maritza Preston LPN. Yes [facility]04-18-2024 Telephone encounter Note* Telephone Encounter - [...] found Please advise. Thank you. Dionne Nunez. [facility]04-16-2024 Instructions* Patient Instructions* Claudine Durán MD - 06/05/2023 3:50 PM EDT Consider seeing Dr. Friend's GI partner for follow up on elevated liver enzymes. documented in this encounterTrihealth Bethes[facility] Hospital04-16-2024 History of Present illness Narrative* Claudine Durán MD - 06/05/2023 3:28 PM EDT This note was created using [employer]. Subjective Haydee Bustamante is a 78 year old female. Patient presents with: Discharge Skilled Rehab: Discharged from [facility] SUBJECTIVE: Haydee Bustamante is a 78 year old year old lady here today for follow up appointment for review of medical conditions after in [facility] after being in TCU after hospitalization. Did well with PT/OT ST at TCU at [facility] noted for swallowing--no problems with swallowing now. [...] sites with positive rheumatoid factor ([facility]) 03/07/2015 Dr. Hurley ([facility]) Unspecified hemorrhoids without mention of [...] (FLONASE) 50 mcg/actuation nasal spray Use 1 Goodland in each nostril once daily. albuterol HFA (PROAIR HFA) 90 mcg/actuation inhaler Inhale 2 Puffs as instructed every 4 hours as needed. vit A,C,U-Cgwd-Zzancq (OCUVITE PRESERVISION) 2,148 mcg-113 mg-45 mg-17.4mg tab [...] the date of the service which included orys-do-ugrb patient care, completing clinical documentation, obtaining and/or reviewing separately obtained history, performing a medically appropriate examination, counseling and educating the patient/family/caregiver, ordering medications, tests, or procedures, independently interpreting results (not separately reported), and communicating results to the patient/family/caregiver. Claudine Durán MD documented in this encounterTrihealth Bethes[facility] Hospital03-11-2024 Miscellaneous Notes* Telephone Encounter - Brittany Cedillo LPN - 04/30/2023 11:09 AM EDT Rec'd rec'd from [facility] pt to be d/c from [facility] to [facility] private pay for therapy documented in this encounterTrihealth [facility]03-08-2024 Discharge summary Author Edinson Irvin [facility] April 27, 2023 1:24pm Note Date/Time April 27, 2023 1:24 pm [facility] Medical Records Department [address] [place] [address] Transfer to [facility] MR#: [id number] Acct: [id number] Name: HAYDEE BUSTAMANTE Rep #:[id number] : 1945 77 From: Edinson Irvin MD PCP: Dr. Claudine Durán MD Status:AD M IN Certification of patient admission REQUIRED AT TIME OF ADMISSION. I CERTIFY THAT POST-HOSPITAL ECF SERVICES ARE REQUIRED TO BE GIVEN ON AN IN-PATIENT BASIS BECAUSE OF THE ABOVE NAMED PATIENT'S NEED FOR DETENTION CARE ON A CONTINUING BASIS FOR THE CONDITION(S) FOR WHICH HE/SHE WAS RECEIVINGIN-PATIENT HOSPITAL SERVICES PRIOR TO HIS/HER TRANSFER TO THE [facility]. 04/27/23 1324<Electronically signed by Edinson Irvin MD> [...] Additional Instructions / Restrictions: Discharge 04/30/2023 to [facility], private pay, part B therapies. Discharge Orders/Prescriptions [...] Qty: 0 0RF fluticasone propionate 50 mcg/actuation Goodland,Suspension 1 spray NASAL DAILY Qty: 0 0RF [...] applicable): CC: Dr. Claudine Durán MD ~ [facility] Work Phone: 1(907) 122-776703-08-2024 Discharge summary Author Edinson [facility] April 27, 2023 1:23pm Note Date/Time April 27, 2023 1:17 pm [facility] Medical Records Department [address] [place] [address] [place] [address] Discharge Summary 04/27/23 1316 MR#: [id number] Acct: [id number] Name: HAYDEE BUSTAMANTE Rep #:[id number] : 1945 77 From: Edinson Irvin MD PCP: Dr. Claudine Durán MD Status:[facility] [place] Location: [place] [address] Providers Date of Admission: 04/05/23 Primary Care Physician: Dr. Claudine Durán MD Consultations 04/10/23 10:44 Consult: Onc/Wound/ezpawn sales and lending team member Routine Comment: Reason for Consult:: bilateral lowers [...] 1 tab PO DAILY supplement 03/19/23 vitamins A,C,Y-nrut-ghtgfi 2,148 mcg-113 mg-45 mg-17.4 mg tablet (PreserVision [...] DVT right lower extremity. Discharge 04/30/2023 to [facility], intermediate, private pay, part B therapies. Physical Exam [...] Uncontrolled pain Additional Instructions: Discharge 04/30/2023 to [facility], [facility], part B therapies. Meaningful Use Info Meaningful Use Diagnoses (Choose all that apply): None applicable Discharge Plan Admission Admit Date/Time: 04/05/23 13:33 Primary Reason for Your Visit: Debility. Attending Provider: Edinson Irvin Chi Primary Care Provider: Claudine Durán Instructions Additional Instructions / Restrictions: Discharge 04/30/2023 to [facility], private pay, part B therapies. Discharge Orders/Prescriptions [...] Qty: 0 0RF fluticasone propionate 50 mcg/actuation Good[place],Suspension 1 spray NASAL DAILY Qty: 0 0RF [...] Durán MD; Dr. Edinson Irvin MD~ Signed [facility] Work Phone: 1(453) 249-872702-21-2024 History and physical note Author Edinson [facility] April 11, 2023 11:37am Note Date/Time April 05, 2023 8:06pm [facility] Medical Records Department [address] [place] [address] History & Physical Exam 04/05/231955 MR#: [id number] Acct: [id number] Name: HAYDEE BUSTAMANTE Rep #:[id number] : 1945 77 From: Edinson Irvin MD PCP: Dr. Claudine Durán MD Status:AD M IN Location: [place] [address]1 HPI - General General Date of Admission: 04/05/23 Date of Service: 04/05/23 Chief Complaint: Here for rehabilitation. HPI Narrative 03/31/2023 HAYDEE BUSTAMANTE, is a 77 Female who presents to [facility] ED with edema. FTT, bilateral lower extremity edema, right lower extremity redness. Unable to care for self at home, fell, could not get up. On floor for hours. Worsening right leg pain. WBC 19.4, Hemoglobin 8.3, INR 1.3, K 3.2, BNP okay, CK okay. Chest X-ray negative, X-ray right tibia/fibula negative. Clindamycin IV for right lower extremity cellulitis. 03/31/[address] [facility]. Levaquin, Doppler right lower extremity for cellulitis [...] rehabiliation, strengthening, prior to discharge home alone. [facility] Medical History (Updated 04/05/23 @ [...] Q24H 03/19/23 [History Last Taken Unknown] vitamins A,C,W-zogc-outhlh 2,148 mcg-113 mg-45 mg-17.4 mg tablet (PreserVision [...] MD; Dr. Edinson Irvin MD ~* Signed [facility] Work Phone: 1(588) 590-986302-19-2024 Procedure [facility] 04-06-2023 Progress note Author Amparo Marina [facility] April 06, 2023 3:02pm Note Date/Time April 06, 2023 2:39pm [facility] Medical Records Department [address] [place] [address] [place] [address] Progress Note - Pharmacy 04/06/23 1438 MR#: [id number] Acct: [id number] Name: HAYDEE BUSTAMANTE Rep #:[id number] : 1945 77 From: Amparo Marina PCP: Dr. Claudine Durán MD Status:AD M IN Location: [place] [address] Documented by User: Amparo Marina 04/06/23 15:02 [...] 04/06/23 10:00 04/06/23 08:50 Fluticasone 0.05% 1 [place] Nasal.Sry NASAL 1 spray DAILY [facility] Administration Gabapentin 300 mg 04/05/23 22:00 04/06/23 08:52 Gabapentin 300 Mg Capsule PO 300 mg Q12 [facility] Administration Itraconazole 200 mg 04/05/23 17:00 04/06/23 08:48 Itraconazole 100 Mg Capsule PO 200 mg BIDCM [facility] Administration Magnesium Citrate 300 ml 04/05/23 20:14 Magnesium Citrate 300 Ml PO DAILY PRN Constipation Multivitamins 1 tablet 04/06/23 08:00 04/06/23 08:49 Multivitamins,Therapeutic Tablet PO 1 tablet DAILYCM [facility] Administration Multivitamins/Minerals 2 cap 04/05/23 17:00 04/06/23 08:48 Multivitamin (Healthy Eyes) Capsule PO 2 cap BIDCM [facility] Administration Oxycodone HCl 5 mg 04/05/23 14:09 Oxycodone 5 Mg Tablet PO Q4H PRN PRN Pain Score 4-10 Pantoprazole Sodium 40 mg 04/05/23 22:00 04/06/23 08:49 Pantoprazole Sodium 40 Mg Tablet PO 40 mg BID [facility] Administration Potassium Chloride 20 meq 04/07/23 08:00 Potassium Chloride Oral Tablet 20 Meq PO DAILYCM [facility] Senna/Docusate Sodium 1 tablet 04/05/23 22:00 04/06/23 08:49 Senna/Docusate Sodium 1 Tablet PO 1 tablet BID [facility] Administration Tuberculin PPD 0.1 ml 04/13/23 10:00 [...] by Edinson Irvin MD> CC: ~ Signed [facility] Work Phone: 1(608) 855-692802-15-2024 Consult note Author Alcides Abel [facility] April 05, 2023 10:22am Note Date/Time April 04, 2023 4:12pm [facility] Cancer Care [address] [place] [address] Consultation - Oncology IP 04/04/23 1610 MR#: [id number] Acct: [id number] Name: HAYDEE BUSTAMANTE Rep #:[id number] : 1945 77 From: Alcides tavares MD PCP: Dr. Claudine Durán MD Status:AD M IN Location: [place] [address] Assessment & Plan Assessment/Plan (1) Thrombocytopenia: Status: Acute Code(s): D69.6 - Thrombocytopenia, unspecified Plan: Acute moderately severe onset is in March 2023 no active bleeding and no evidence for recent thrombosis no recent use of heparin. She has a remote history of venous thromboembolic disease and was on Coumadin until recent hospitalization at [facility] in early March 2023. Has had multiple [...] prophylaxis.. 4. Patient's is an established at [facility] and therefore I advised continued follow-up there. Impression and plan discussed with the patient and her friend. Impression and plan discussed with hospitalist. Alcides Abel MD [employer] Machine [employer], [facility] Divisions of Medical Oncology & Hematology Department of Internal Medicine [place] [address] This note was generated using a voice [...] an acute thrombocytopenia (see lab section for medical service representative platelet counts) with no active bleeding or thrombosis. The patient has multiple chronic medical problems and multiple hospitalizations between [facility] and [facility] and is presenting with failure to thrive at home. Medical history notable for chronic rheumatoid arthritis for which she was treated in the past with methotrexate and Biologics but none since January 2023when she developed reactivation of previously treated pulmonary histoplasmosis and has been on itraconazole starting around 2023. She has a past history of venous thromboembolic disease and was on Coumadin until recently. She has chronic lower extremities edema and ulcers for which she has received multiple courses of antibiotics. In early March 2023 she was seen at [facility] and transferred to [facility] with suspected bowel perforation and was treated conservatively with antimicrobials. On the current admission she was receiving Cipro and Flagyl in addition to itraconazole s that was started around February 2023. In her last admission to [facility] in March 2023 Coumadin was held, because not clear and patient as far as she can tell did not receive any heparin injections . Advanced Directives Power of Electromechanical Equipment Tester: Yes Living Will: Yes [facility] Medical History (Updated 04/05/23 @ [...] Q24H 03/19/23 [History Last Taken Unknown] vitamins A,C,W-ozlu-laoecw 2,148 mcg-113 mg-45 mg-17.4 mg tablet (PreserVision [...] (Auto) 76.5 H, Lymph % (Auto) 9.4L, Door % (Auto) 8.3, Eos % (Auto) 4.9, [...] 39 L* Absolute Neuts (auto) 8.2 H 0204/03/23 04/03/23 06:40 06:40 06:40 WBC 6.3 Hgb [...] MD; Dr. Jorgito Agarwal DO ~ Signed [facility] Work Phone: 1(360) 758-764802-14-2024 Progress note Author Jasmyn Chan [facility] April 04, 2023 6:11pm Note Date/Time April 04, 2023 6:11pm [facility] Medical Records Department [address] [place] [address] Progress Note - Hospitalist 04/04/23 1807 MR#: [id number] Acct: [id number] Name: HAYDEE BUSTAMANTE Rep #:[id number] : 1945 77 From: Jasmyn Chan DO PCP: Dr. Claudine Durán MD Status:AD M IN Location: [place] [address] Reason for Visit Reason for Visit: Diagnoses [...] (Auto) 76.5 H, Lymph % (Auto) 9.4L, Door % (Auto) 8.3, Eos % (Auto) 4.9, Baso % (Auto) 0.2, Absolute Neuts (auto)4.7, Absolute Lymphs (auto) 0.58 L, Nucleated RBC % 0, Diff Path Review June sundeep, Platelet Estimate MKD DEC, Anisocytosis 2+ 04/04/23 16:19: WBC 5.3, RBC 3.42 L, Hgb 9.7 L, Hct 29.5 L, MCV 86.3, MCH 28.4, MCHC 32.9, RDW Std Deviation 70.8 H, RDW Coeff of Catarino 23.1 H, Plt Count 41 L*, MPV 10.2, Immature Gran % (Auto) 0.600, Neut % (Auto) 73.8 H, Lymph % (Auto) 11.4 L, Door % (Auto) 9.8, Eos % (Auto) 4.2, [...] 25 minutes Charges/Coding Visit Charges Inpatient E&M: 99180 Subs Hosp L1 04/04/23 9333 <Electronically signed by Jasmyn Tereletsky DO> Cosigner Signature (if applicable): CC: ~ Signed [facility] Work Phone: 1(259) 604-541502-13-2024 Progress note Author Mathew Orellana [facility] April 03, 2023 5:53pm Note Date/Time April 03, 2023 5:53pm [facility] Medical Records Department [address] [place] [address] Progress Note - GI 04/03/23 1750 MR#: [id number] Acct: [id number] Name: HAYDEE BUSTAMANTE Rep #:[id number] : 1945 77 From: Mathew Orellana DO PCP: Dr. Claudine Durán MD Status:AD M IN Location: [place] [address] Subjective Subjective Patient is doing well without [...] Protocol: Document 04/01/23 12:03 (Rec: 04/01/23 12:03 [id number]) Nutrition Malnutrition Evidence of Malnutrition Exists Yes [...] (Auto) 82.5 H, Lymph % (Auto) 6.5L, Door % (Auto) 7.5, Eos % (Auto) 2.7, [...] PE),Recent diagnosis Histoplasmosis, recent 03/21/[address] [facility] with transfer to [facility] secondary to concerns for complex bowel obstruction [...] needs any acid suppression she can get primary care sales representative fate or H2 receptor pietro. Charges/Coding Visit Charges Inpatient E&M: 26445 Subs Hosp 04/03/23 1751 <Electronically signed by Mathew Friend > Cosigner Signature (if applicable): CC: ~ Signed [facility] Work Phone: 1(166) 419-156602-13-2024 Progress note Author Jasmyn Chan [facility] April 03, 2023 5:36pm Note Date/Time April 03, 2023 5:36pm [facility] Medical Records Department [address] [place] [address] Progress Note - Hospitalist 04/03/23 1730 MR#: [id number] Acct: [id number] Name: HAYDEE BUSTAMANTE Rep #:[id number] : 1945 77 From: Jasmyn Chan DO PCP: Dr. Claudine Durán MD Status:AD M IN Location: [place] [address] Reason for Visit Reason for Visit: Diagnoses [...] Protocol: Document 04/01/23 12:03 (Rec: 04/01/23 12:03 [id number]) Nutrition Malnutrition Evidence of Malnutrition Exists Yes [...] (Auto) 82.5 H, Lymph % (Auto) 6.5L, Door % (Auto) 7.5, Eos % (Auto) 2.7, [...] 25 minutes Charges/Coding Visit Charges Inpatient E&M: 55670 [facility] Hosp L1 04/03/23 5466 <Electronically signed by Jasmyn Chan DO> Cosigner Signature (if applicable): CC: ~ Signed [facility] Work Phone: 1(684) 566-143302-12-2024 Progress note Author Jasmyn Chan [facility] April 02, 2023 8:07pm Note Date/Time April 02, 2023 8:07pm [facility] Medical Records Department [address] [place] [address] Progress Note - Hospitalist 04/02/232000 MR#: [id number] Acct: [id number] Name: HAYDEE BUSTAMANTE DIONTE Rep #:[id number] : 1945 77 From: Jasmyn Chan DO PCP: Dr. Claudine Durán MD Status:AD M IN Location: [place] [address] Reason for Visit Reason for Visit: Diagnoses [...] Protocol: Document 04/01/23 12:03 (Rec: 04/01/23 12:03 [id number]) Nutrition Malnutrition Evidence of Malnutrition Exists Yes [...] (Auto) 86.6 H, Lymph % (Auto) 6.4L, Door % (Auto) 5.4, Eos % (Auto) 0.6, [...] acute debility-patient may need placement in a [facility] facility for short-term rehab services. #6 histoplasmosis-patient is currently on itraconazole Total clinical time spent by myself addressing the patient's medical issues, reviewing all of her data, and collaborating with patient's care team: 25 minutes Charges/Coding Visit Charges Inpatient E&M: 36108 Subs Hosp L1 04/02/232006 <Electronically signed by Jasmyn Chan DO> Cosigner Signature (if applicable): CC: ~ Signed [facility] Work Phone: 1(666) 324-218502-12-2024 Miscellaneous Notes* Telephone Encounter - Claudine Durán MD - 04/02/2023 7:52 PM EST Noted regarding fall. * Telephone Encounter - Doretha Miller RN - 04/02/2023 9:44 AM EST Friend answered pt's phone, and after informed this is a nurse in pcp office, friend reported pt was admitted into [facility] PCU after a fall on Sat. Friend does not think there was an injury from fall. Friend reports patient was in [facility] for 1 week, and has been in and out of ER several times since discharge. Advised we would f/u with pt once discharged from [facility]. * Telephone Encounter - Claudine Durán MD - 04/01/2023 4:51 PM EST Noted Patient had recent labs done during admission (was at [facility] and discharged 03/25) Noted alk phos in [...] 02/27/2023 1:48 PM EST Faxed received from [facility] Melissa Dorsey [facility] stating that the liver enzymes are worse. Please review copy of labs and advise. documented in this encounterTrihealth [facility]02-12-2024 Consult note Author Mathew Friend [facility] April 02, 2023 5:06pm Note Date/Time April 02, 2023 5:00pm [facility] Medical Records Department [address] [place] [address] Consultation - GI 04/01/23 1658 MR#: [id number] Acct: [id number] Name: HAYDEE BUSTAMANTE Rep #:[id number] : 1945 77 From: Mathew Orellana DO PCP: Dr. Claudine Durán MD Status:AD M IN Location: [place] [id number]- HPI Consult Data Date of Consult: 04/01/23 HPI Narrative Reason for Consultation: Anemia HPI Narrative: HAYDEE BUSTAMANTE, is a 77-year-old female history of COPD, Severe . GERD. DVT and PEon Coumadin, histoplasmosis of the lung, RA who presented to [facility] ED 03/31/2023 with bilateral lower extremity edema. She was seen here 03/28/2023 with lower extremity edema. She was initially seen here 03/26/2023 for shortness of breath and inability to care for herself at home after a recent hospital stay at [facility] from which she was discharged [...] her because her hemoglobin decreased to 6.5. [facility] Medical History (Updated 04/02/23 @ [...] Q24H 03/19/23 [History Last Taken Unknown] vitamins A,C,Z-cgoc-mdaosc 2,148 mcg-113 mg-45 mg-17.4 mg tablet (PreserVision [...] Document 04/01/23 12:03 AG (Rec: 04/01/23 12:03 [id number]) Nutrition Malnutrition Evidence of Malnutrition Exists Yes [...] (Auto) 86.6 H, Lymph % (Auto) 6.4L, Door % (Auto) 5.4, Eos % (Auto) 0.6, [...] PE),Recent diagnosis Histoplasmosis, recent 03/21/[address] [facility] with transfer to [facility] secondary to concerns for complex bowel obstruction [...] of 3 Charges/Coding Visit Charges Inpatient E&M: 69728 Init Hosp L3 04/02/23 1706 <Electronically signed by Mathew Friend DO> Cosigner Signature (if applicable): CC: Dr. Alisa Mathew MD; Dr. Claudine Durán MD; Dr. Laine Veras MD~ Signed [facility] Work Phone: 1(434) 441-491502-12-2024 Procedure [facility] 04-02-2023 Procedure [facility]02-11-2024 Miscellaneous Notes* Telephone Encounter - Claudine Durán MD - 04/01/2023 4:36 PM EST See MyChart reply documented in this encounterTrihealth [facility] Hospital02-11-2024 Progress note Author [facility] April 01, 2023 12:08pm Note Date/Time April 01, 2023 6:46am [facility] Medical Records Department [address] [place] [address] Progress Note - Hospitalist 04/01/23 0642 MR#: [id number] Acct: [id number] Name: HAYDEE BUSTAMANTE Rep #:[id number] : 1945 77 From: Alisa Mathew MD PCP: Dr. Claudine Durán MD Status:AD M IN Location: [place] [address] Reason for Visit Reason for Visit: Diagnoses [...] 90.8 H, Lymph % (Auto) 3.0 L, Door % (Auto) 5.0, Eos % (Auto) 0.1, [...] 88.5 H, Lymph % (Auto) 4.7 L, Door % (Auto) 5.6, Eos % (Auto) 0.2, [...] Michael Galarza MD at 19:29 EST , Ankle X-Ray 03/31/23 22:10 IMPRESSION: Soft tissue swelling without obvious fracture. Electronically Signed: Michael Galarza MD at 23:54 EST Reading Location ID and State: [employer] / [place] Tel , Service support , Physical Exam [...] PE),Recent diagnosis Histoplasmosis, recent 03/21/[address] [facility] with transfer to [facility] secondary to concerns for complex bowel obstruction [...] therapy with planned outpatient work-up, discharged from [facility] 03/25/23 with decline upon return to home, inability to safely care for self prompting presentation to the [facility] ED on 03/26/23 for SNF placement needs but improved and declined SNF placement again who now re-presents to the [facility] ED on 03/31/23 with history of worsened [...] follow-up as previously arranged per Surgery team [facility]. #11. Rheumatoid arthritis: Patient outpatient on Humira, methotrexate and leucovorin however this has been continued to be held secondary to a recent hospitalization in [facility] with disseminated histoplasmosis and concern for bowel perforation/colitis, resume once allowed per infectious disease. #12. Valvular heart disease with aortic stenosis with recent diagnosis moderatepericardial effusion: Recent evaluation in [facility], no intervention but close observation [...] Code status. Charges/Coding Visit Charges Inpatient E&M: 45118 Subs Hosp L3 04/01/23 1208 <Electronically signed by Alisa Mathew MD> Cosigner Signature (if applicable): CC: ~ Signed [facility] Work Phone: 1(123) 333-157602-10-2024 History and physical note Author Laine Veras [facility] March 31, 2023 8:59pm Note Date/Time March 31, 2023 8:20pm [facility] Medical Records Department [address] [place] [address] H&P Exam - Hospitalist 03/31/232011 MR#: [id number] Acct: [id number] Name: HAYDEE BUSTAMANTE Rep #:[id number] : 1945 77 From: Laine Veras MD PCP: Dr. Claudine Durán MD Status:AD M IN Location: [facility] [id number]- [facility] - General General Date of Admission: 03/31/23 Date of Service: 03/31/23 Chief Complaint: BLE edema and weeping HPI Narrative HAYDEE BUSTAMANTE, is a 77-year-old female history of COPD, Severe . GERD. DVT and PEon Coumadin, histoplasmosis of the lung, RA who presented to [facility] ED 03/31/2023 with bilateral lower extremity edema. She was seen here 03/28/2023 with lower extremity edema. She was initially seen here 03/26/2023 for shortness of breath and inability to care for herself at home after a recent hospital stay at [facility] from which she was discharged [...] is unsure if she's taking her coumadin [facility] Medical History (Updated 03/31/23 @ [...] Q24H 03/19/23 [History Last Taken Unknown] vitamins A,C,Y-hyah-pshdnu 2,148 mcg-113 mg-45 mg-17.4 mg tablet (PreserVision [...] 90.8 H, Lymph % (Auto) 3.0 L, Door % (Auto) 5.0, Eos % (Auto) 0.1, [...] 19:30 EST Reading Location ID and State: [id number] / [employer] Tel , Service support , Chest X-Ray [...] for bowel perf treated conservatively -Treated at [facility] -s/p cipro and flagyl, no present abd complaints # Disseminated histoplasmosis -Continue itraconazole twice daily -Patient to follow-up with a Dr. Hart in 3 months # Recent COVID-19 -Tested positive here end of February -No resp complaints #Hx COPD -Continue inhalers #Hx and mod pericardial effusion -Seen at [facility] and pt advised to f/u outpt -Will [...] documentation, 78Minutes Charges/Coding Visit Charges Inpatient E&M: 69797 Init Hosp L3 03/31/232058 <Electronically signed by Laine Veras MD> Cosigner Signature (if applicable): CC: Dr. Claudine Durán MD; Dr. Laine Veras MD~ Signed [facility] Work Phone: 1(973) 482-310402-10-2024 Discharge summary Author Martín Cornejo [facility] March 31, 2023 8:00pm Note Date/Time March 31, 2023 5:48pm [facility] Medical Records Department [address] [place] [address] Emergency Department Summary 03/31/23 MR#: [id number] Acct: [id number] Name: HAYDEE BUSTAMANTE Rep #:[id number] : 1945 77 From: Martín Cornejo DO PCP: Dr. Claudine Durán MD Status:RE G ER Location: ED HPI <MEENU Leger - Last Filed: 03/31/23 19:55> History of Present Illness Chief Complaint: Edema Narrative Narrative: Patient is a 77-year-old female with a long history of lower leg edema, history of COPD, patient is on Coumadin, histoplasmosis, [facility] to thrive, worsening swelling [...] to go to a facility for rehab. [facility] <MEENU Leger - Last Filed: 03/31/23 19:55> [facility] Medical History Colitis COPD (chronic [...] Q24H 03/19/23 [History Last Taken Unknown] vitamins A,C,P-jone-pvccgo 2,148 mcg-113 mg-45 mg-17.4 mg tablet (PreserVision [...] <MEENU Leger - Last Filed: 03/31/23 19:55> [facility] Lab Data Labs: Laboratory Results - last 24 hr 03/31/23 18:12 WBC 19.4 H RBC 2.87 L Hgb 8.3 L Hct 24.9 L MCV 86.8 MCH 28.9 MCHC 33.3 RDW Std Deviation 75.1 H RDW Coeff of Catarino 24.1 H Plt Count 95 L MPV 10.4 Immature Gran % (Auto) 1.000 H Neut % (Auto) 90.8 H Lymph % (Auto) 3.0 L Door % (Auto) 5.0 Eos % (Auto) 0.1 [...] Cornejo, DO - Last Filed: 03/31/23 20:00> [facility] Narrative Medical decision making narrative: [...] hospitalist. This patient was seen with a PA/DATABASE ADMIN Individually assessed they patient including history and physical. I have reviewed everything on the chart that is availableand agree with the documentation provided by the PA/DATABASE ADMIN including discussion about the assessment, treatment plan, [...] 90.8 H Lymph % (Auto) 3.0 L Door % (Auto) 5.0 Eos % (Auto) 0.1 [...] to thrive Disposition Disposition: Acute Care Hospital [facility] What to do if you have Problems For any increased pain, shortness of breath, bleeding, nausea or vomiting, chestpain, or any unexpected problems, contact your Primary Care Provider. Call [facility] ([phone]) or report to the closest Emergency Room. Call 911 if necessary. 03/31/231999 <Electronically signed by Martín Cornejo DO> Cosigner Signature (if applicable): 03/31/231954 <Electronically signed by Frederick CORRIGAN> CC: Dr. Claudine Durán MD ~ Signed [facility] Work Phone: 1(692) 946-417502-10-2024 Discharge summary Author [facility] March 31, 2023 8:00pm Note Date/Time March 31, 2023 5:48pm [facility] Medical Records Department [address] [place] [address] Emergency Department Summary 03/31/23 MR#: [id number] Acct: [id number] Name: HAYDEE BUSTAMANTE Rep #:[id number] : 1945 77 From: Martín Cornejo DO PCP: Dr. Claudine Durán MD Status:RE G ER Location: ED HPI <MEENU Leger - Last Filed: 03/31/23 19:55> History of Present Illness Chief Complaint: Edema Narrative Narrative: Patient is a 77-year-old female with a long history of lower leg edema, history of COPD, patient is on Coumadin, histoplasmosis, presenting to the [facility] for failure to thrive, worsening swelling [...] to go to a facility for rehab. [facility] <MEENU Leger - Last Filed: 03/31/23 19:55> [facility] Medical History Colitis COPD (chronic [...] Q24H 03/19/23 [History Last Taken Unknown] vitamins A,C,H-kejw-ncgppk 2,148 mcg-113 mg-45 mg-17.4 mg tablet (PreserVision [...] Blood Pressure Mean 65 Pulse Ox 100 [facility] <MEENU Leger - Last Filed: 03/31/23 19:55> [facility] Lab Data Labs: Laboratory Results - last 24 hr 03/31/23 18:12 WBC 19.4 H RBC 2.87 L Hgb 8.3 L Hct 24.9 L MCV 86.8 MCH 28.9 MCHC 33.3 RDW Std Deviation 75.1 H RDW Coeff of Catarino 24.1 H Plt Count 95 L MPV 10.4 Immature Gran % (Auto) 1.000 H Neut % (Auto) 90.8 H Lymph % (Auto) 3.0 L Door % (Auto) 5.0 Eos % (Auto) 0.1 [...] Cornejo, DO - Last Filed: 03/31/23 20:00> [facility] Narrative Medical decision making narrative: [...] hospitalist. This patient was seen with a PA/DATABASE ADMIN Individually assessed they patient including history and physical. I have reviewed everything on the chart that is availableand agree with the documentation provided by the PA/DATABASE ADMIN including discussion about the assessment, treatment plan, [...] 90.8 H Lymph % (Auto) 3.0 L Door % (Auto) 5.0 Eos % (Auto) 0.1 [...] to thrive Disposition Disposition: Acute Care [facility] What to do if you have Problems For any increased pain, shortness of breath, bleeding, nausea or vomiting, chestpain, or any unexpected problems, contact your Primary Care Provider. Call [facility] ([phone]) or report to the closest Emergency Room. Call 911 if necessary. 03/31/231999 <Electronically signed by Martín Cornejo DO> Cosigner Signature (if applicable): 03/31/231954 <Electronically signed by Frederick CORRIGAN> CC: Dr. Claudine Durán MD ~ Signed [facility] Work Phone: 1(493) 286-643902-07-2024 Discharge summary Author Etienne Thacker [facility] March 28, 2023 8:37pm Note Date/Time March 28, 2023 5 :11pm [facility] Medical Records Department [address] [place] [address] Emergency Department Summary 03/28/23 MR#: [id number] Acct: [id number] Name: HAYDEE BUSTAMANTE Rep #:[id number] : 1945 77 From: Etienne Thacker MD [...] similar symptoms: Yes Recent [facility] Medical History Colitis COPD (chronic [...] Q24H 03/19/23 [History Last Taken Unknown] vitamins A,C,D-fzon-zdbbth 2,148 mcg-113 mg-45 mg-17.4 mg tablet (PreserVision [...] [facility]. Her labs are basically [...] 80.2 H Lymph % (Auto) 7.4 L Door % (Auto) 9.8 Eos % (Auto) 0.0 [...] 18:09 EST Reading Location ID and State: [facility] / [place] Tel , Service support , Chest x-ray, [...] rhythm rate 81 no acute signs of [place] or ischemia. No significant dysrhythmia. Discharge Plan [...] PO .COMPLEX Rx Instructions: 5 mg orally Gil, Sunday; 7.5 mg orally Sunday, , Sunday, [...] your Primary Care Provider. Call [facility] ([phone]) or report to the closest Emergency Room. Call 911 if necessary. 03/28/232036 <Electronically signed by Etienne Thacker MD> Cosigner Signature (if applicable): CC: Dr. Claudine Durán MD ~ Signed [facility] Work Phone: 1(131) 700-234602-05-2024 Discharge summary Author Martín Cornejo [facility] March 26, 2023 4:23pm Note Date/Time March 26, 2023 1 :02pm [facility] Medical Records Department [address] [place] [address] Emergency Department Summary 03/26/23 MR#: [id number] Acct: [id number] Name: HAYDEE BUSTAMANTE Rep #:[id number] : 1945 77 From: Martín Cornejo DO PCP: Dr. Claudine Durán MD Status:AD [facility] Location: [facility] LT877-0 HPI History of Present Illness Chief Complaint: Shortness of Breath Narrative Narrative: 77-year-old female presenting with shortness of breath. She needs placement. She is unable to care for self at home. [facility] due to concern for bowel perforation which [...] So they can discharge her home from [facility]. Patient may need a TAVR in the future. She may need mitral valve repair.. Her creatinine was elevated while she was at [facility]. She was discharged home on Cipro and Flagyl. She will continue itraconazole twice daily. She is given Imodium for diarrhea. He has 4 more days of dexamethasone. She was to hold her HCTZ/irbesartan [facility] Medical History (Updated 03/26/23 @ 15:59 [...] Q24H 03/19/23 [History Last Taken Unknown] vitamins A,C,I-olwi-lyeiol 2,148 mcg-113 mg-45 mg-17.4 mg tablet (PreserVision [...] 80.3 H Lymph % (Auto) 6.3 L Door % (Auto) 9.6 Eos % (Auto) 0.0 [...] Signed: Geo Ni MD at 13:20 EST Reading Location ID and State: [address] [place] [address] , Service support , Discharge Plan Triage Chief Complaint: Shortness of Breath ED Provider: Martín Cornejo Dx/Rx/DC Orders Primary Care Provider: Claudine Durán What to do if you have Problems For any increased pain, shortness of breath, bleeding, nausea or vomiting, chestpain, or any unexpected problems, contact your Primary Care Provider. Call [facility] ([phone]) or report to the closest Emergency Room. Call 911 if necessary. 03/26/23 4406 <Electronically signed by Martín Cornejo DO> Cosigner Signature (if applicable): CC: Dr. Claudine Durán MD ~ Signed [facility] Work Phone: 1(662) 591-498802-04-2024 NoteHNO ID: [id number] Author: ARMEN FERNANDEZ RN Service: Nursing Author Type: Registered Nurse Type: Nursing Progress Note Filed: 03/25/2023 08:58 Note Text: Sepsis alert, sound paged, vitals stable, pt stable, waitng for call-back from sound.[facility]02-03-2024 NoteHNO ID: [id number] Author: SHARAN RIVAS MD Service: Hospital Medicine [...] (SPORANOX) 200 mg ORAL BID phenol 1 [place] (CHLORASEPTIC) 1 [place] MUCOUS MEMBRANE (TOPICAL MOUTH AND THROAT) q [...] was found to be COVID-19 positive in [place]. Imaging showed intraperitoneal air and pneumatosis intestinalis and patient was transferred to [facility]. Pulmonology was consulted and patient was started on remdesivir and Decadron for COVID-19. Also started on itraconazole, Cipro and Flagyl. Surgery was involved with no surgical plans. # Pneumatosis intestinalis and pneumoper (more content not included)...[facility]02-03-2024 NoteHNO ID: [id number] Author: MAGAN VILLAFUERTE DO Service: Pulmonary Disease Author Type: Physician Type: Progress Notes Filed: 03/24/2023 09:51 Note Text: PULMONARY CONSULT PROGRESS NOTE SERVICE DATE: 03/24/2023 SERVICE TIME: 929 Subjective INTERVAL HPI: Patient clinically stable. Remains [...] of disseminated histoplasmosis. She is followed in [place], [place]. She has a history of previous [...] She presented to the emergency room at [place] after a vigorous coughing episode and coughing [...] (SPORANOX) 200 mg ORAL BID phenol 1 [place] (CHLORASEPTIC) 1 [place] MUCOUS MEMBRANE (TOPICAL MOUTH AND THROAT) q [...] adenopathy; thyroi (more content not included)...[facility]02-02-2024 Miscellaneous Notes* Telephone Encounter - Rachelle Leonard APRN.CNP - 03/23/2023 5:16 PM EST Please schedule patient to follow with Dr. Hart in 2 months. Thank you documented in [facility] NoteHNO ID: [id number] Author: AMERICA RODRIGUEZ RN Service: Care Management Author Type: Registered Nurse Type: Care Mgt Progress Note Filed: 03/23/2023 14:44 Note Text: CARE MANAGEMENT PROGRESS NOTE SERVICE DATE: 03/23/2023 SERVICE TIME: 12:22 PM LOS: 4 days Post-Acute Discharge Planning Patient Goal(s): Be able to go home, General wellness [place] Choice Explained: [place] of [place] Given: No Reason Not Given: [...] 23, 2023 TIME: 2:37 PM PAGER/CONTACT #: [phone] [facility] 03-23-2023 NoteHNO ID: [id number] Author: MAGAN VILLAFUERTE DO Service: Pulmonary Disease [...] of disseminated histoplasmosis. She is followed in [place], [place]. She has a history of previous [...] She presented to the emergency room at [place] after a vigorous coughing episode and coughing [...] 03/19/2023 Abnorma (more content not included)...[facility]02-02-2024 NoteHNO ID: [id number] Author: SHARAN RIVAS MD Service: Hospital Medicine [...] (SPORANOX) 200 mg ORAL BID phenol 1 [place] (CHLORASEPTIC) 1 [place] MUCOUS MEMBRANE (TOPICAL MOUTH AND THROAT) q [...] VTE on (more content not included)...[facility]02-01-2024 NoteHNO ID: [id number] Author: GENO HART MD Service: Infectious Disease [...] home -Patient can call my office at [phone] to get an appointment for about 3 [...] chills, myalgias, acute joint changes, abdominal complaints 03/22-feeling stronger. Cough is somewhat less. Has sore [...] for recurrent lower extremity DVT, presented to [facility] 03/19/2023 for hemoptysis, going to the [place] ED but then sent here due to [...] be COVID-positive. Interestingly a CAT scan at [place] found pneumatosis intestinalis and intraperitoneal free air comp (more content not included)...[facility]02-01-2024 NoteHNO ID: [id number] Author: MAGAN VILLAFUERTE DO Service: Pulmonary Disease [...] of disseminated histoplasmosis. She is followed in [place], [place]. She has a history of previous [...] She presented to the emergency room at [facility] after a vigorous coughing episode and coughing [...] Positive PCR for COVID-19 supposedly reported from [facility]. Chest and abdomen/pelvis reviewed CTA chest 03/19/2023 No pulmonary embolism Prominent reticular no (more content not included)...[facility]02-01-2024 NoteHNO ID: [id number] Author: YAN PEREZ DO Service: General Surgery [...] Yan Perez DO 03/22/2023 1:52 PM][facility]02-01-2024 NoteHNO ID: [id number] Author: JOSE LUIS CRISTOBAL DO Service: General [...] ICU or 2174 if on RNF.[facility]02-01-2024 NoteHNO ID: [id number] Author: SHARAN RIVAS MD Service: Hospital Medicine [...] (SPORANOX) 200 mg ORAL BID phenol 1 [place] (CHLORASEPTIC) 1 [place] MUCOUS MEMBRANE (TOPICAL MOUTH AND THROAT) q [...] Haydee Weber (more content not included)...[facility]02-01-2024 NoteHNO ID: [id number] Author: PAMELA HALL MD Service: General Surgery Author Type: Physician Type: Progress Notes Filed: 04/25/2023 15:56 Note Text: Emergency General Surgery Progress Note SERVICE DATE: March 22, 2023 Emergency General Surgery Service Pager: For questions or concerns Mon-Fri 6a-5p please page [phone]. After 5pm and on Weekends and Holidays, please page [phone] if in ICU or [phone] if on RNF. SUBJECTIVE: Patient denies worsening [...] 0659 03/22/23 07 - 03/23/23 0659 Shift 5200-7957 3564-8907 4830-8951 24 Hour Total 8956-6632 2524-8745 5993-6556 24 Hour Total INTAKE IV 300 300 [...] ORAL DIRECTED PRN remdesivir in NaCl 0.9% Vial-Mate/ADD-[place] 100 mg 275 mL 100 mg INTRAVENOUS [...] (SPORANOX) 200 mg ORAL TID phenol 1 [place] (CHLORASEPTIC) 1 [place] MUCOUS MEMBRANE (TOPICAL MOUTH AND THROAT) q [...] arthritis (HCC) 03/07/2015 Overview Note: Dr. Hurley ([facility]) Assessment: 77 year old female [...] Hospital Cou (more content not included)...[facility] 03-21-2023 NoteHNO ID: [id number] Author: GENO HART MD Service: Infectious Disease [...] for recurrent lower extremity DVT, presented to [facility] 03/19/2023 for hemoptysis, going to the [place] ED but then sent here due to [...] be COVID-positive. Interestingly a CAT scan at [place] found pneumatosis intestinalis and intraperitoneal free air [...] -- 03/21/23 1000 remdesivir in NaCl 0.9% Vial-Mate/ADD-[place] 100 mg 275 mL 100 mg, INTRAVENOUS, EVERY 24 HOURS See Hyperspace for full Linked Orders Report. 03/23/23 0959 03/20/23 1300 itraconazole 200 mg oral liquid (SPORANOX) 200 mg, ORAL, 3 TIMES DAILY 03/23/23 1259 03/19/23 2000 cipro (more content not included)...[facility] 03-21-2023 NoteHNO ID: [id number] Author: PAMELA HALL MD Service: General Surgery Author Type: Physician Type: Progress Notes Filed: 03/22/2023 07:10 Note Text: Emergency General Surgery Progress Note SERVICE DATE: March 21, 2023 Emergency General Surgery Service Pager: For questions or concerns Mon-Fri 6a-5p please page [phone]. After 5pm and on Weekends and Holidays, please page [phone] if in ICU or [phone] if on RNF. SUBJECTIVE: NAEON. AF and [...] 0659 03/21/23 07 - 03/22/23 0659 Shift 3870-7065 8563-3435 1834-7405 24 Hour Total 7919-1857 6370-5174 0046-6067 24 Hour Total INTAKE IV 1275 1275 [...] Dose Route Frequency remdesivir in NaCl 0.9% Vial-Mate/ADD-[place] 100 mg 275 mL 100 mg INTRAVENOUS [...] (SPORANOX) 200 mg ORAL TID phenol 1 [place] (CHLORASEPTIC) 1 [place] MUCOUS MEMBRANE (TOPICAL MOUTH AND THROAT) q [...] arthritis (HCC) 03/07/2015 Overview Note: Dr. Hurley ([facility]) Assessment: 77 year old female with PMH significant for RA (Humira), HTN, h/o disseminated Histoplasmosis, bronchiectasis, VTE (on coumadin), pulmonary nodules, and presenting to the ED today after an episode of hemoptysis at home. CTAP had an incidental finding of a small amount of intraperitoneal air and pneumatosis in the colon. INR on arrival to [place] was 9. She given Vitamin K and transferred here. Hospital Course/Operations/Procedures: * No surgery found * Plan: Pneumatosis intestinalis and intraperitoneal free air - labs and imaging reviewed - Small amount of air on (more content not included)...[facility]01-31-2024 NoteHNO ID: [id number] Author: MAGAN VILLAFUERTE DO Service: Pulmonary Disease [...] of disseminated histoplasmosis. She is followed in [place], [place]. She has a history of previous [...] She presented to the emergency room at [place] after a vigorous coughing episode and coughing [...] Positive PCR for COVID-19 supposedly reported from [facility]. Chest and abdomen/pelvis reviewed CTA chest 03/19/2023 [...] cavity normal (more content not included)...[facility]01-30-2024 NoteHNO ID: [id number] Author: ELÍAS QUINN, PAULA Service: Care Management Author Type: Registered Nurse Type: Care Mgt Initial Assessment Filed: 03/20/2023 16:23 Note Text: CARE MANAGEMENT: ASSESSMENT AND DISCHARGE PLAN SERVICE DATE: March 20, 2023 SERVICE TIME: 4:19 PM PCP: Claudine Durán MD Primary Contact: Extended Emergency Contact Information Primary Emergency Contact: Suzie Araiza ([place]ph[place]) Address: [facility] [address] [place] [address] [facility] Relation: Friend Secondary Emergency Contact: Padmini Chang Address: [address] [place] [address] [facility] Mobile Relation: Friend Admission Status: Inpatient Insurance Provider: [employer] MED[employer]ARE PPO Discharge Planning requested by: Per Department Practice Potential Transition Plans Home Advance Directives Current Advance Directive: None Signal Circuit Designer Attempted to Assist with AD Completion: Yes [...] wellness, Less pain, Wean off of O2 [place] of Choice Explained: [place] of Choice Given: No Reason Not Given: [...] 20, 2023 TIME: 4:19 PM CONTACT #: [phone] [facility]01-30-2024 Note HNO ID: [id number] Author: MAGAN VILLAFUERTE DO Service: Pulmonary Disease [...] of disseminated histoplasmosis. She is followed in [place], [place]. She has a history of previous [...] She presented to the emergency room at [place] after a vigorous coughing episode and coughing [...] Positive PCR for COVID-19 supposedly reported from [facility]. Chest and abdomen/pelvis reviewed CTA chest 03/19/2023 [...] with d (more content not included)...[facility]01-30-2024 NoteHNO ID: [id number] Author: PAMELA HALL MD Service: General Surgery [...] 0659 03/20/23 07 - 03/21/23 0659 Shift 1857-9093 8087-9431 3830-9833 24 Hour Total 6346-6865 1458-3345 4195-9334 24 Hour Total INTAKE IV 300 100 [...] in the colon. INR on arrival to [place] was 9. She given Vitamin K and [...] chemical anticoagulation - INR on arrival to [place] was 9. She given Vitamin K prior to transfer - continue serial abdominal exams - notify general surgery of any acute changes in clinical status D/w Dr. Hall SIGNATURE: Christ Camarena MD PATIENT NAME: Haydee Bustamante DATE: March 20, 2023 TIME: 921 Pager: [phone] Emergency General Surgery Service Pager: For questions or concerns Mon-Sun 6a-5p please page [phone]. After 5pm and on Weekends and Holidays, please page [phone] if in ICU or [phone] if on RNF. Emergency General Surgery (EGS) Staff Addendum: See admit H/P for full attestation following today's patient care visit. I evaluated the patient and personally participated in the jim components. I agree with the resident's findi (more content not included)...[facility]01-29-2024 Discharge summary Author Bob Elias [facility] March 19, 2023 5:11pm Note Date/Time March 19, 2023 1 0:38am [facility] Medical Records Department [address] [place] [address] Emergency Department Summary 03/19/23 MR#: [id number] Acct: [id number] Name: HAYDEE BUSTAMANTE Rep #:[id number] : 1945 77 From: Bob Amaro PCP: [...] states she has a history of histoplasmosis. [facility] Medical History (Updated 03/19/23 @ 15:03 [...] (Auto) 68.8 Lymph % (Auto) 15.1 L Door % (Auto) 10.9 H Eos % (Auto) [...] here. Patient requested transfer to [facility]. Transfer line was contacted. Case was discussed with Dr. Lugo at [facility]. He accepted the patient and requested patient be transferred to the emergency department there. Case was discussed with emergency department physician. He accepted the patient to be transferred there. Patient was ordered type and screen. Patient was also ordered a unit of fresh frozen plasma. Patient will be transferred to [facility]. Patient and family understood and were agreeable with the plan. All questions were answered. Critical Care Time Critical Care Time: Yes Critical care time (excluding procedures): 30-74 minutes (38), Including time spent:, Discussing w/Patient &/or Family/Deputy Juvenile Officer, Discussing w/Consultants, Arranging Admission or Transfer and [...] Disposition Disposition: Acute Care Hospital Discharge Location: [facility] What to do if you have Problems For any increased pain, shortness of breath, bleeding, nausea or vomiting, chestpain, or any unexpected problems, contact your Primary Care Provider. Call [facility] ([phone]) or report to the closest Emergency Room. Call 911 if necessary. 03/19/23 1711 <Electronically signed by Bob Elias DO> Cosigner Signature (if applicable): CC: Dr. Claudine Durán MD ~ Signed [facility] Work Phone: 1(237) 202-566112-20-2023 History of Present illness Narrative* Kathleen Alegria [...] 07, 2023 11:06 AM documented in this encounterTrihealth [facility]12-20-2023 History of Present illness Narrative* Adri Zaragoza APRN.DIE PRESSER - 02/07/2023 10:52 AM EST Subjective HPI [...] positive rheumatoid factor (HCC) 03/07/2015 Dr. Hurley ([facility]) Unspecified hemorrhoids without mention of [...] SPINE FUSN,POST INTERBODY 2011 Dr. Armando at [facility]. Diskectomy and laminectomy PAST SURGICAL [...] fluticasone (FLONASE) 50 mcg/actuation nasal spray^Use 1 [place] in each nostril once daily.^Disp: 3 Each^Rfl: [address] (PROTONIX) 40 mg tablet^Take 1 tablet by mouth once daily.^Disp: 90 tablet^Rfl: 3 albuterol HFA (PROAIR HFA) 90 mcg/actuation inhaler^Inhale 2 Puffs as instructed every 4 hours as needed.^Disp: 1 Each^Rfl: 2 vit A,C,K-Ounc-Prkllr (OCUVITE PRESERVISION) 2,148 mcg-113 mg-45 mg-17.4mg tab^Take [...] A/B & RSV NAAT, ROUTINE Adri Zaragoza APRN.DIE PRESSER documented in this encounterTrihealth Bethes[facility] North Hospital12-15-2023 History of Present illness Narrative* Melissa Means RN - 02/02/2023 3:19 PM EST pcp agrees with information * Melissa Means RN - 02/02/2023 9:47 AM EST patient had inr completed at [facility] patients inr is 2.1 (patients [...] for follow up INR. documented in this encounterTrihealth [facility]hes[facility] Hospital12-06-2023 Miscellaneous Notes* Telephone Encounter - Magalie Ngo LPN - 01/24/2023 9:02 AM EST GEREMIAS 07/20/22 Patient phones requesting refills as follows: Requested Prescriptions Pending Prescriptions Disp Refills budesonide-formoterol (SYMBICORT) 160-4.5 mcg/actuation inhaler [Pharmacy Med Name: BUDESONIDE/FORMINHALER 10.2GM 160/4.5MCG] 30.6 g 3 Sig: USE 2 INHALATIONS TWICE A DAY INSTRUCTED Please review and advise. Magalie Ngo LPN documented in this encounterTrihealth Bethes[facility] North Hospital11-29-2023 History of Present illness Narrative* Melissa Means RN - 01/17/2023 3:02 PM EST pcp agrees with information * Melissa Means RN - 01/17/2023 1:55 PM EST patient had inr completed at [facility] patients inr is 1.9 (patients [...] reading since dose change documented in this encounterTrihealth Bethes[facility] Hospital11-22-2023 History of Present illness Narrative* Melissa Means RN - 01/10/2023 3:47 PM EST pcp agrees with information PATIENT NOTIFIED OF INFORMATION * Melissa Means RN - 01/10/2023 1:38 PM EST patient had inr completed at [facility] patients inr is 2.9 (patients [...] and advise on recommendation documented in this encounterTrihealth Bethes[facility] Hospital11-16-2023 History of Present illness Narrative* Yesenia Weinstein LPN - 01/04/2023 4:24 PM EST Patient notified of providers message and verbalized understanding. * Jimbo Swanson APRN.CNS - 01/04/2023 3:29 PM EST OK to change coumadin to 7.5mg Tues,Sat,Sun and 5mg all other days and recheck INR in 1 week * Melissa Means RN - 01/04/2023 11:34 AM EST patient had inr completed at [facility] patients inr is 2.6 (patients inr [...] and advise on recommendation documented in this encounterTrihealth Bethes[facility] Hospital11-16-2023 Instructions* Patient Instructions* Jimbo Swanson APRN.CNS - 01/04/2023 10:50 AM EST It appears that you have better coverage for the RSV vaccine at your local pharmacy. documented in this encounterTrihealth Bethesda North Hospital11-16-2023 History of Present illness Narrative* Jimbo Swanson, PRINTED CIRCUIT BOARDS STRIPPER ETCHER.MUNICIPAL COURT MAGISTRATE - 01/04/2023 10:49 AM EST SUBJECTIVE: RSV [...] and COPD. HPI excerpted from previous visits: Securities Settlement Processor: Florence Collins MD, last seen July 20, 2022. Seen for follow-up of lung nodules bronchiectasis. Noted are a likely etiology for underlying bronchiectasis. Noted new nodularity of lung,likely represents inflammatory nodules. Will need follow-up CT. No this may improve with bronchopulmonary hygiene. Spiriva and intermittent albuterol has helped with cough. Stable. Senior Sourcing Manager: William Messina BAV, aortic stenosis , last seen in cardiology August 29, 2022 by SANTY Love. Continued on current treatments unchanged. Follow-up echo advised, not yet scheduled.. Clinical Fellow: [facility]. Continues with methotrexate, Humira.seen by [...] Occasional bruising. [facility] coumadin clinic. Referred by silverer to see orthopedic physician for her hip. [...] fluticasone (FLONASE) 50 mcg/actuation nasal spray^Use 1 [place] in each nostril once daily.^Disp: 3 Each^Rfl: [address] (PROTONIX) 40 mg tablet^Take 1 tablet by mouth once daily.^Disp: 90 tablet^Rfl: 3 albuterol HFA (PROAIR HFA) 90 mcg/actuation inhaler^Inhale 2 Puffs as instructed every 4 hours as needed.^Disp: 1 Each^Rfl: 2 vit A,C,F-Enar-Tpuzmi (OCUVITE PRESERVISION) 2,148 mcg-113 mg-45 mg-17.4mg tab^Take [...] positive rheumatoid factor (HCC) 03/07/2015 Dr. Hurley ([facility]) Unspecified hemorrhoids without mention of [...] to get at pharmacy discussed risks - [employer] COVID-19 VACCINE ( SEASON) AGE 12+ YR in office today Jimbo Swanson APRN.CNS Medical Decision Making: Problems: Low: 2+ self-limited or minor problems Risk: Moderate: Drug management Medical Decision Making Level: 3 - Low documented in this encounterTrihealth Bet[facility]11-01-2023 Miscellaneous Notes* Telephone Encounter - Maritza [...] you. Maritza Preston LPN. documented in this encounterTrihealth Bethes[facility] Hospital10-26-2023 History of Present illness Narrative* Jimbo Swanson APRN.CNS - 12/14/2022 12:11 PM EDT Continue with Coumadin dose unchanged and check INR in 2 or 3 weeks * Melissa Means RN - 12/14/2022 10:25 AM EDT patient had inr completed at [facility] patients inr is 2.2 (patients [...] patient declines blood draw documented in this encounterTrihealth Bethes[facility] Hospital10-19-2023 History of Present illness Narrative* Yesenia Weinstein LPN - 12/07/2022 4:45 PM EDT Patient notified of providers message regarding coumadin instructions and verbalized understanding. * Jimbo Swanson APRN.CNS - 12/07/2022 4:28 PM EDT Recommend Coumadin 5 mg Gil Sunday and 7.5 mg all other days and check INR in 1 week * Melissa Means RN - 12/07/2022 10:15 AM EDT patient had inr completed at [facility] patients inr is 2.5 (patients [...] and advise on recommendation documented in this encounterTrihealth [facility]10-02-2023 Miscellaneous Notes* Letter - Coordinator, José - 11/20/2022 9:52 AM EDT November 20, 2022 PID: [id number] Haydee Bustamante [address] [place] [address] Dear Ms. Bustamante, We are pleased to [...] report will be kept on [facility] at [facility] as part of your permanent medical record and are available for your continuing care. Thank you for allowing us to help in meeting your health care needs. Sincerely, Dr. Basurto Interpreting Radiologist [facility] (Normal over 40) documented in this encounterTrihealth Bethesda [facility] Hospital09-29-2023 History of Present illness Narrative* Aide [...] DATA: Not applicable SIGNED BY: RT Rosa Maria(Ade) November 17, 2022 9:00 AM * Shahnaz [...] 17, 2022 9:00 AM documented in this encounterTrihealth Bethes[facility] Hospital09-29-2023 Miscellaneous Notes* Result Encounter Note - Jimbo Swanson APRN.CNS - 11/17/2022 9:30 AM EDT Negative, 1 year screening follow-up documented in this encounterTrihealth Bethes[facility] Hospital09-21-2023 History of Present illness Narrative* Jimbo Swanson APRN.CNS - 11/09/2022 4:41 PM EDT Continue Coumadin dose unchanged and check INR in 4 weeks * Melissa Means RN - 11/09/2022 10:27 AM EDT patient had inr completed at [facility] patients inr is 1.9 (patients [...] follow u p INR. documented in this encounterTrihealth Bethes[facility] Hospital09-21-2023 Miscellaneous Notes* Telephone Encounter - Melissa Means RN - 11/09/2022 10:29 AM EDT patients orders for coumadin clinic inr's has at this time. new order has been pended for approval if possible so that patient can continue to get inr's completed thru the coumadin clinic. coumadin clinic nurse only needs called if order can not be approved. documented in this encounterTrihealth Bethes[facility] Hospital09-21-2023 History of Present illness Narrative* Ron Veras MD - 11/09/2022 8:50 AM EDT Ron Veras MD Department of Orthopaedics Orthopaedics [address] [place] [id number] Dept: [phone] Dept November 09, 2022 CHIEF COMPLAINT: New [...] acute pathology. 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 Science Instructor: KRYSTAL Transcribe Date/Time: Dec 31 2021 11:55A [...] DVT, recurrent, lower extremity, acute ([facility]) 12/10/2014 Esophageal reflux Hiatal hernia 02/25/2018 Hypertension Lung nodule Personal history of unspecified urinary disorder Rheumatoid arthritis involving multiple sites with positive rheumatoid factor ([facility]) 03/07/2015 Dr. Hurley ([facility]) Unspecified hemorrhoids without mention of [...] SPINE FUSN,POST INTERBODY 2012 Dr. Armando at [facility]. Diskectomy and laminectomy PAST SURGICAL [...] (FLONASE) 50 mcg/actuation nasal spray Use 1 [place] in each nostril once daily. pantoprazole DR (PROTONIX) 40 mg tablet Take 1 tablet by mouth once daily. albuterol HFA (PROAIR HFA) 90 mcg/actuation inhaler Inhale 2 Puffs as instructed every 4 hours as needed. vit A,C,A-Mukl-Bpzcek (OCUVITE PRESERVISION) 2,148 mcg-113 mg-45 mg-17.4mg tab [...] physician via US mail. Twyla Cuevas [address] [address] Claudine Durán MD [address] [address] Ron Veras MD documented in this encounterTrihealth Bethesda [facility] Hospital09-14-2023 Miscellaneous Notes* Telephone Encounter - Isabella Zacarias RN - 11/02/2022 10:12 AM EDT Patient calls back and states that [facility] does have prescription for coumadin. Isabella Zacarias RN * Telephone Encounter - Melanie Mcgregor RN - 11/01/2022 5:24 PM EDT Patient calling to say [facility] [place] tells her they did not receive script for short fill Warfarin. Patient asking if it can be sent again. Pended. Melanie Mcgregor RN documented in this encounterTrihealth Bethes[facility] Hospital09-12-2023 Miscellaneous Notes* Telephone Encounter - Charissa [...] patient. Charissa Perez LPN documented in this encounterTrihealth Bethesda North Hospital09-12-2023 Miscellaneous Notes* Telephone Encounter - Ashly Shay RN - 10/31/2022 8:02 AM EDT Patient calling with request for medication/refill: Patient/caregiver requesting refill of Warfarinbe called to [facility] at online.. Patient denies any new or worsening symptoms of which a provider is not aware: Yes. Patient just discovered she will run out of the below rx on . Is requesting a short term supply be sent to [facility] in [place] and the remainder sent to [facility]. Has been taking medication as ordered. warfarin (COUMADIN) 5 mg tablet 30 tablet 3 07/11/2022 Sig: Take 7.5 mg Tu, Anabel,Fri, Sat, Sun; and 5 mg on Sunday and Sunday Sent to pharmacy as: warfarin (COUMADIN) 5 mg tablet documented in this encounterTrihealth Bethes[facility] Hospital09-08-2023 History of Present illness Narrative* Jimbo Swanson APRN.TYLOR - 10/27/2022 9:20 AM EDT SUBJECTIVE: BP [...] bicuspid valve, lung nodule bronchiectasis and COPD. Securities Settlement Processor: Florence Collins MD, last seen July 20, 2022. Seen for follow-up of lung nodules bronchiectasis. Noted are a likely etiology for underlying bronchiectasis. Noted new nodularity of lung,likely represents inflammatory nodules. Will need follow-up CT. No this may improve with bronchopulmonary hygiene. Spiriva and intermittent albuterol has helped with cough. Stable. Senior Sourcing Manager: William Messina BAV, aortic stenosis , last seen in cardiology August 29, 2022 by SANTY Love. Continued on current treatments unchanged. Follow-up echo advised, not yet scheduled.. Clinical Fellow: [facility]. Continues with methotrexate, Humira.seen by [...] pain, currently taking gabapentin. Plans to see network applications specialist, referred by silverer. Referred by silverer to see orthopedic physician for her hip. [...] fluticasone (FLONASE) 50 mcg/actuation nasal spray^Use 1 [place] in each nostril once daily.^Disp: 3 Each^Rfl: [...] hours as needed.^Disp: 1 Each^Rfl: 2 vit A,C,E-Lxks-Wnmxof (OCUVITE PRESERVISION) 2,148 mcg-113 mg-45 mg-17.4mg tab^Take [...] positive rheumatoid factor (HCC) 03/07/2015 Dr. Hurley ([facility]) Unspecified hemorrhoids without mention of [...] - SABINO SCREENING - SABINO SCREENING W AILZE 4. COPD without exacerbation (HCC) - ICD9: 496, ICD10: J44.9 - SPIRIVA RESPIMAT 2.5 MCG/ACTUATION SOLUTION FOR INHALATION 5. Low back pain with right-sided sciatica, unspecified back pain laterality, unspecified chronicity - ICD9: 724.3, ICD10: M54.41 Plans to see network applications specialist 6. Hip pain, acute, left - ICD9: 719.45, ICD10: M25.552 7. Rheumatoid arthritis involving multiple sites with positive rheumatoid factor (HCC) - ICD9: 714.0, ICD10: M05.79 Followed by [facility] 8. Bronchiectasis without complication (HCC) - [...] Level: 4 - Moderate documented in this encounterTrihealth Bethes[facility] Hospital09-08-2023 Instructions* Patient Instructions* Jimbo Swanson APRN.CNS - 10/27/2022 9:01 AM EDT Consider getting new COVID booster when it becomes available either in clinic or at pharmacy. documented in this encounterTrihealth Bethesda North Hospital09-07-2023 History of Present illness Narrative* Jimbo Swanson APRN.CNS - 10/26/2022 4:38 PM EDT Continue with Coumadin dose unchanged and check INR in 2 weeks * Melissa Means RN - 10/26/2022 12:14 PM EDT patient had inr completed at [facility] patients inr is 1.7 (patients [...] reading since dose change documented in this encounterTrihealth Bethes[facility] Hospital08-24-2023 History of Present illness Narrative* Maritza [...] PM EDT patient had inr completed at [facility] patients inr is 1.5 (patients inr [...] and advise on recommendation documented in this encounterTrihealth Bethes[facility] Hospital08-21-2023 Miscellaneous Notes* Telephone Encounter - Claudine [...] Thank you. CARMEN Viveros documented in this encounterTrihealth Bethesda North Hospital08-07-2023 Miscellaneous Notes* Telephone Encounter - Will [...] year. Thanks ~ JJ documented in this encounterTrihealth Bethesda North Hospital07-28-2023 Miscellaneous Notes* Telephone Encounter - Muna Porter RN - 09/15/2022 10:24 AM EDT Pt called and is notified of providers results and instructions. Pt voices understanding. Muna Porter, RN * Telephone Encounter - Brittany Cedillo LPN - 09/14/2022 4:54 PM EDT Message left to pts home number with instructions and requested return call to verify pt rec'd them. * Telephone Encounter - Jimbo Swanson APRN.TYLOR - 09/14/2022 4:44 PM EDT INR remains [...] dose and pt findings. documented in this encounterTrihealth Bethesda [facility] Hospital07-20-2023 History of Present illness Narrative* Melissa Means RN - 09/07/2022 4:07 PM EDT PATIENT NOTIFIED OF INFORMATION * Jimbo Swanson APRN.CNS - 09/07/2022 3:49 PM EDT Okay for 5 mg Coumadin Sunday and 7.5 mg all other days. Recheck INR in 1 week * Melissa Means RN - 09/07/2022 11:59 AM EDT patient had inr completed at [facility] patients inr is 2.4 (patients [...] week at the lab due to the will be closed for the next 3 weeks patient has been scheduled at that [facility] for an inr follow up 09/14/22 (order is already in place) please review and advise on recommendation documented in this encounterTrihealth Bethesda North Hospital07-11-2023 Instructions* Patient Instructions* Rachelle Schulte APRN.DIE PRESSER - 08/29/2022 9:51 AM EDT Please schedule [...] up in 6 months documented in this encounterTrihealth Bethesda North Hospital07-11-2023 History of Present illness Narrative* Rachelle Schulte APRN.CNP - 08/29/2022 9:30 AM EDT Images from the original note were not included. [facility] [place] [facility] Department of Cardiovascular Medicine SECTION [...] which included preparing to see the patient, ycby-uq-wqvz patient care, completing clinical documentation, performing a [...] prior to the follow up. Rachelle Schulte APRN.[facility] Cardiology Nurse Practitioner Section of Regional Cardiology [facility] Dept of Cardiovascular Medicine [facility] [place] [address] [place] [address] Office Office August 29, 2022 7:46 AM This note was partially generated using eBureau recognition system and may contain errors related [...] nodule with faint calcifications suggesting calcified granuloma. Science Instructor: [facility] Transcribe Date/Time: Jul 24 2022 10:02A [...] marrow involvement with histoplasmosis Bronchiectasis ([facility]) COPD (chronic obstructive pulmonary disease) ([facility]) Disseminated histoplasmosis Colitis, immunosuppression, 01/2018. Diverticulosis of colon (without mention of hemorrhage) Diverticulosis DVT, recurrent, lower extremity, acute ([facility]) 12/10/2014 Esophageal reflux Hiatal hernia 02/25/2018 Hypertension Lung nodule Personal history of unspecified urinary disorder Rheumatoid arthritis involving multiple sites with positive rheumatoid factor ([facility]) 03/07/2015 Dr. Hurley ([facility]) Unspecified hemorrhoids without mention of [...] and ROS obtained by others. Rachelle Schulte APRN.DIE PRESSER CURRENT MEDICATIONS: Current Outpatient Medications Medication Sig budesonide-formoterol (SYMBICORT) 160-4.5 mcg/actuation inhaler Inhale 2 Puffs as instructed twice daily. fluticasone (FLONASE) 50 mcg/actuation nasal spray Use 1 [place] in each nostril once daily. warfarin (COUMADIN) 5 mg tablet Take 7.5 mg , Sun,Sun, Sun, Sun; and 5 mg on Sunday and Sunday pantoprazole DR (PROTONIX) 40 mg tablet Take 1 tablet by mouth once daily. albuterol HFA (PROAIR HFA) 90 mcg/actuation inhaler Inhale 2 Puffs as instructed every 4 hours as needed. vit A,C,W-Pglk-Ppzycg (OCUVITE PRESERVISION) 2,148 mcg-113 mg-45 mg-17.4mg tab [...] mL INTRAVENOUS DIRECTED PRN documented in this encounterTrihealth Bethesda North Hospital06-27-2023 Miscellaneous Notes* Telephone Encounter - Magalie Ngo LPN - 08/15/2022 10:20 AM EDT [facility] 07/20/22 Patient phones requesting refills as follows: Requested Prescriptions Pending Prescriptions Disp Refills budesonide-formoterol (SYMBICORT) 160-4.5 mcg/actuation inhaler Sig: Inhale as instructed twice daily. Please review and advise. Magalie Ngo LPN documented in this encounterTrihealth Bethesda North Hospital06-25-2023 Miscellaneous Notes* Telephone Encounter - Claudine [...] now. Bakari Catalan LPN documented in this encounterTrihealth Bethesda North Hospital06-01-2023 History of Present illness Narrative* Florence Collins MD - 07/20/2022 9:30 AM EDT Images from the original note were not included. . Respiratory [place] Note Patient name: Haydee Bustamante PCP: Claudine Durán MD CC: Follow-up chest CT HPI: Haydee Bustamante 77 year old female former 10 pack year smoker with PMH significant for RA (MTX, Humira), HTN, h/o disseminated Histoplasmosis, bronchiectasis, , VTE, pulmonary nodules, who presents for follow-up. Current inhaled therapy with Symbicort and Spiriva. At [facility] with me, she was a newpatient [...] DATE OF EXAM: Jul 20 2022 9:22AM [facility] 0541 - CT CHEST WO IVCON [...] abdomen within the limits of noncontrast technique.. Wood Patternmaker Apprentice (topogram) images: IVC filter present IMPRESSION: Findings [...] DVT, recurrent, lower extremity, acute ([facility]) 12/10/2014 Esophageal reflux Hiatal hernia 02/25/2018 Hypertension Lung nodule Personal history of unspecified urinary disorder Rheumatoid arthritis involving multiple sites with positive rheumatoid factor ([facility]) 03/07/2015 Dr. Hurley ([facility]) Unspecified hemorrhoids without mention of [...] hours as needed.^Disp: 1 Each^Rfl: 2 vit A,C,J-Motk-Hwyqro (OCUVITE PRESERVISION) 2,148 mcg-113 mg-45 mg-17.4mg tab^Take [...] fluticasone (FLONASE) 50 mcg/actuation nasal spray^Use 1 [place] in each nostril once daily.^Disp: 3 Each^Rfl: [...] SPINE FUSN,POST INTERBODY 2012 Dr. Armando at [facility]. Diskectomy and laminectomy PAST SURGICAL [...] her underlying bronchiectasis Florence Collins MD Respiratory [place] documented in this encounterTrihealth Bethesda [facility] Hospital06-01-2023 History of Present illness Narrative* Faviola [...] IV DATA: Not applicable SIGNED BY: RT Maryann(Ade) July 20, 2022 9:35 AM documented in this encounterTrihealth Bethesda North Hospital05-11-2023 History of Present illness Narrative* Jimbo Swanson APRN.MUNICIPAL COURT MAGISTRATE - 06/29/2022 1:52 PM EDT Continue with Coumadin dosing unchanged and check INR in 2 weeks * Melissa Means RN - 06/29/2022 10:28 AM EDT patient had inr completed at [facility] patients inr is 2.1 (patients [...] reading since dose change documented in this encounterTrihealth Bethesda [facility] Hospital04-04-2023 Miscellaneous Notes* Telephone Encounter - Claudine [...] rescheduled. Lani from Dr Rani Cowart's office [facility] states they received a signed [...] is scheduled for surgery tomorrow morning. PH: [phone] X [phone] FAX: [phone]. Maricarmen Jacobs LPN documented in this encounterTrihealth Bethesda North Hospital03-16-2023 History of Present illness Narrative* Jimbo Swanson APRN.TYLOR - 05/04/2022 12:54 PM EDT Continue Coumadin dose unchanged and check INR in 1 month * Melissa Means RN - 05/04/2022 10:26 AM EDT patient had inr completed at [facility] patients inr is 2.0 (patients [...] for follow up INR. documented in this encounterTrihealth [facility]02-16-2023 History of Present illness Narrative* Jimbo Swanson APRN.CNS - 04/06/2022 12:24 PM EST Continue with Coumadin dose unchanged and check INR in 4 weeks * Melissa Means RN - 04/06/2022 9:45 AM EST patient had inr completed at [facility] patients inr is 2.0 (patients [...] for follow up INR. documented in this encounterTrihealth [facility] Hospital02-09-2023 History of Present illness Narrative* Melissa [...] AM EST patient had inr completed at [facility] patients inr is 2.3 (patients [...] up inr on 04/06/22 documented in this encounterTrihealth [facility] Hospital01-23-2023 History of Present illness Narrative* Claudine Durán MD - 03/13/2022 10:41 AM EST This note was created using CollabRxriter. Subjective Haydee Bustamante is a 76 year old female. Patient presents with: 4 month follow up SUBJECTIVE: Haydee Bustamante is a 76 year old year old lady here today for 4 month follow up appointment for reviewof medical conditions. Following with eye doctor. Has early macular degeneration. Given glasses for it. Having foot surgery at [facility] May 19. Told will be [...] marrow involvement with histoplasmosis Bronchiectasis ([facility]) COPD (chronic obstructive pulmonary disease) ([facility]) Disseminated histoplasmosis Colitis, immunosuppression, 01/2018. Diverticulosis of colon (without mention of hemorrhage) Diverticulosis DVT, recurrent, lower extremity, acute ([facility]) 12/10/2014 Esophageal reflux Hiatal hernia 02/25/2018 Hypertension Personal history of unspecified urinary disorder Rheumatoid arthritis involving multiple sites with positive rheumatoid factor ([facility]) 03/07/2015 Dr. Hurley ([facility]) Unspecified hemorrhoids without mention of complication Hemorrhoids Current Outpatient Medications Medication Sig naproxen (NAPROSYN) 500 mg tablet Take 1 tablet by mouth twice daily as needed. Take with food gabapentin (NEURONTIN) 300 mg capsule Take 1 capsule by mouth twice daily. fluticasone (FLONASE) 50 mcg/actuation nasal spray Use 1 [place] in each nostril once daily. tiotropium bromide [...] and as needed for preop eval for profile saw operator. Noted that has not needed bridging Lovenox when has been off coumadin. Continue present management with anticoagulation. .BP controlled. Continue present management. Claudine Durán MD documented in this encounterTrihealth Bethes[facility] Hospital12-15-2022 History of Present illness Narrative* Jimbo Swanson APRN.CNS - 02/02/2022 1:32 PM EST Continue with Coumadin dose unchanged check INR in 4 weeks * Melissa Means RN - 02/02/2022 10:49 AM EST patient had inr completed at [facility] patients inr is 2.0 (patients [...] for follow up INR. documented in this encounterTrihealth [facility]hes[facility] Hospital11-29-2022 Miscellaneous Notes* Telephone Encounter - Geni [...] advise. Geni Cintron LPN documented in this encounterTrihealth Bethesda North Hospital11-23-2022 Miscellaneous Notes* Telephone Encounter - Lynne Mann LPN - 01/11/2022 9:09 AM EST Spoke with pt and information listed below given. Pt verbalizes understanding. She will get the labs when they are due. Lynne Mann LPN * Telephone Encounter - Claudine Durán MD - 01/11/2022 8:14 AM EST Patient gets labs done for silverer so labs are up to date The [...] you. Lynne Mann LPN documented in this encounterTrihealth Bethes[facility] Hospital11-17-2022 History of Present illness Narrative* Melissa Means RN - 01/05/2022 4:[address] haynes he agrees with information * Melissa Means RN - 01/05/2022 1:09 PM EST patient had inr completed at [facility] patients inr is 2.2 (patients [...] follow u p INR. documented in this encounterTrihealth [facility]11-12-2022 History of Present illness Narrative* Katarzyna [...] 31, 2021 11:45 AM documented in this encounterTrihealth [facility] Hospital11-03-2022 History of Present illness Narrative* Melissa Means RN - 12/22/2021 3:56 PM EDT PATIENT NOTIFIED OF INFORMATION * Jimbo Swanson APRN.CNS - 12/22/2021 1:40 PM EDT Recommend Coumadin 7.5 mg today. Then resume usual dosing 5 mg Sunday and 7.5 mg all other days. Check INR 2 weeks * Melissa Means RN - 12/22/2021 11:16 AM EDT patient had inr completed at [facility] patients inr is 1.4 (patients inr range [...] up inr on 01/05/22 documented in this encounterTrihealth [facility] Hospital10-11-2022 History of Present illness Narrative* Florence Collins MD - 11/29/2021 10:00 AM EDT Images from the original note were not included. . [facility] [place] Note Patient name: Haydee Bustamante PCP: Claudine Durán MD CC: Follow-up lung disease HPI: Haydee uBstamante 76 year old female former [id number] smoker having quit in 1989 with PMH [...] marrow involvement with histoplasmosis Bronchiectasis ([facility]) COPD (chronic obstructive pulmonary disease) ([facility]) Disseminated histoplasmosis Colitis, immunosuppression, 01/2018. Diverticulosis of colon (without mention of hemorrhage) Diverticulosis DVT, recurrent, lower extremity, acute ([facility]) 12/10/2014 Esophageal reflux Hiatal hernia 02/25/2018 Hypertension Personal history of unspecified urinary disorder Rheumatoid arthritis involving multiple sites with positive rheumatoid factor ([facility]) 03/07/2015 Dr. Hurley ([facility]) Unspecified hemorrhoids without mention of complication Hemorrhoids ALLERGIES Allergen Reactions Penicillins Hives fluticasone (FLONASE) 50 mcg/actuation nasal spray^Use 1 [place] in each nostril once daily.^Disp: 3 Each^Rfl: [...] SPINE FUSN,POST INTERBODY 2012 Dr. Armando at [facility]. Diskectomy and laminectomy PAST SURGICAL [...] treatment per rheumatology Florence Collins MD [facility] [place] documented in this encounterTrihealth [facility]hes[facility] Hospital10-06-2022 Miscellaneous Notes* Telephone Encounter - Pili Burgos - 11/24/2021 10:37 AM EDT error documented in this encounterTrihealth Bethesda North Hospital09-22-2022 History of Present illness Narrative* Jimbo Swanson APRN.MUNICIPAL COURT MAGISTRATE - 11/10/2021 9:20 AM EDT SUBJECTIVE: BP [...] and COPD. HPI excerpted from previous visit: Senior Sourcing Manager: William GOTTI, aortic stenosis - has 01/2021 appt Securities Settlement Processor: Mirian Medrano / Johanna Mariscal 6 month follow up with PFT 05/2020 Infectious disease:Ayanna Schulte -histoplasmosis on Humira -follow-up in 6 months 09/2019 Clinical Fellow:: Today reports had toe infection has completely healed. States that profile saw operator discussed possible amputation of toe but would prefer not to go that route. May see an alternate profile saw operator at [facility]. States took blood pressure medication today. [...] 12 mos RA: controlled currently, following with silverer. OAC: no bleeding difficulties. Occasional bruising. Spiriva [...] fluticasone (FLONASE) 50 mcg/actuation nasal spray^Use 1 [place] in each nostril once daily.^Disp: 3 Bottle^Rfl: 3 (Patient not taking: No sig reported) PAST MEDICAL HISTORY Diagnosis Date Blood dyscrasia Disseminated histoplasmosis Colitis, immunosuppression, 01/2018. Diverticulosis of colon (without mention of hemorrhage) Diverticulosis DVT, recurrent, lower extremity, acute ([facility]) 12/10/2014 Esophageal reflux Hiatal hernia 02/25/2018 Hypertension Personal history of unspecified urinary disorder Rheumatoid arthritis involving multiple sites with positive rheumatoid factor ([facility]) 03/07/2015 Dr. Hurley ([facility]) Unspecified hemorrhoids without mention of [...] Abs Lymph 1.00 - 4.00 k/uL 1.64 Door% % 8.0 Abs Door <0.87 k/uL 0.60 Eosin% % 2.7 Abs [...] (HCC) - ICD9: 496, ICD10: J44.9 - [id number] BL 3. Encounter for immunization - ICD9: V03.89, ICD10: Z23 - [employer] COVID-19 BIVALENT BOOSTER VACCINE, AGE 12+ YR - INFLUENZA SEASONAL QUADRIVALENT HIGH DOSE AGE 65+ 4. Gastroesophageal reflux disease without esophagitis - ICD9: 530.81, ICD10: K21.9 5. Bronchiectasis without complication (HCC) - ICD9: 494.0, ICD10: J47.9 6. COPD without exacerbation (HCC) - ICD9: 496, ICD10: J44.9 7. Aortic stenosis with bicuspid valve - ICD9: 746.3, 746.4, ICD10: Q23.0, Q23.1 Jimbo Swanson APRN.MUNICIPAL COURT MAGISTRATE] Jimbo Swanson APRN.CNS Medical Decision Making: Problems: Moderate: 1+ chronic illnesses with change and 2+ stable chronic illnesses Risk: Moderate: Drug management Medical Decision Making Level: 4 - Moderate documented in this encounterTrihealth [facility] Hospital09-21-2022 Miscellaneous Notes* Telephone Encounter - Claudine [...] can not be approved. documented in this encounterTrihealth [facility] Hospital09-20-2022 Miscellaneous Notes* Telephone Encounter - Ruby [...] you. Ruby Tobin RN documented in this encounterTrihealth Bethes[facility] Hospital09-13-2022 Instructions* Patient Instructions* Chacho Aspen - 11/01/2021 9:29 AM EDT Your ulceration is now healed Ok to continue with padding as needed F/u as needed documented in this encounterTrihealth Bethes[facility] Hospital09-13-2022 History of Present illness Narrative* Chacho [...] positive rheumatoid factor (HCC) 03/07/2015 Dr. Hurley ([facility]) Unspecified hemorrhoids without mention of [...] (FLONASE) 50 mcg/actuation nasal spray Use 1 [place] in each nostril once daily. (Patientnot taking: [...] SPINE FUSN,POST INTERBODY 2012 Dr. Armando at [facility]. Diskectomy and laminectomy PAST SURGICAL [...] Has stopped wrapping it. documented in this encounterTrihealth [facility]09-08-2022 History of Present illness Narrative* Melissa Means RN - 10/27/2021 11:06 AM EDT patient had inr completed at [facility] patients inr is 1.6 (patients [...] for follow up INR. documented in this encounterTrihealth [facility] Hospital08-30-2022 Instructions* Patient Instructions* Chacho Louise - 10/18/2021 9:[address] aquacel on ulceration daily Place lambs wool or guaze horizontally between the interspace Secure lambs wool or guaze with daniella wrap or tape Wear surgical shoe or wide sneaker or even sandal to avoid pressure on 5th toe documented in this encounterTrihealth [facility] Hospital08-30-2022 History of Present illness Narrative* Chacho [...] DVT, recurrent, lower extremity, acute ([facility]) 12/10/2014 Esophageal reflux Hiatal hernia 02/25/2018 Hypertension Personal history of unspecified urinary disorder Rheumatoid arthritis involving multiple sites with positive rheumatoid factor ([facility]) 03/07/2015 Dr. Hurley ([facility]) Unspecified hemorrhoids without mention of [...] (FLONASE) 50 mcg/actuation nasal spray Use 1 [place] in each nostril once daily. (Patientnot taking: [...] SPINE FUSN,POST INTERBODY 2011 Dr. Armando at [facility]. Diskectomy and laminectomy PAST SURGICAL [...] thickness Chacho Louise DPM Podiatry [address] [facility] [address] Dept: [phone] Dept * Imelda Quijano LPN - 10/18/2021 8:48 AM EDT AMB ROOMING INTAKE FLOWSHEET DATA Pain Pain Level: 4 Pain Location: Toe Description: Sharp, Raw, Sore Duration Amount of Time: 2 Duration Units: Months Frequency: Intermittent Intervention/Comfort measure: Reposition, Relaxation Patient presents with: Right Foot - Established Patient, Follow Up, Pain, Blister Imelda Quijano LPN documented in this encounterTrihealth [facility] Hospital08-30-2022 Miscellaneous Notes* Telephone Encounter - Muna [...] you. Muna Porter RN documented in this encounterTrihealth Bethes[facility] Hospital08-24-2022 History of Present illness Narrative* RT [...] 12, 2021 10:06 AM documented in this encounterTrihealth [facility] Hospital08-24-2022 History of Present illness Narrative* Haider [...] 12, 2021 9:56 AM documented in this encounterTrihealth [facility] Hospital08-11-2022 History of Present illness Narrative* Jimbo Swanson APRN.CNS - 09/29/2021 1:52 PM EDT Continue current Coumadin dose unchanged and check INR in 4 weeks * Melissa Means RN - 09/29/2021 1:20 PM EDT patient had inr completed at [facility] patients inr is 2.0 (patients [...] for follow up INR. documented in this encounterTrihealth [facility] Hospital08-02-2022 Instructions* Patient Instructions* Jimbo Swanson APRN.CNS - 09/20/2021 1:55 PM EDT Keep your toe clean dry and . Was with soap and water daily, dry thoroughly. Use lambswool between toes. Avoid tight shoes documented in this encounterTrihealth Bethes[facility] Hospital08-02-2022 History of Present illness Narrative* Jimbo [...] and COPD. HPI excerpted from previous visit: Senior Sourcing Manager: William Messina BAV, aortic stenosis - has 01/2021 appt Securities Settlement Processor: Mirian Medrano / Johanna Mariscal 6 month follow up with PFT 05/2020 Infectious disease:Ayanna Schulte -histoplasmosis on Humira -follow-up in 6 months 09/2019 Clinical Fellow:: Home blood pressure and heart rate: no [...] 12 mos RA: controlled currently, following with silverer. Histoplasmosis: notes resolved symptoms. OAC: no bleeding difficulties. Occasional bruising. Spiriva and intermittent albuterol has helped with cough. Presents today for foot lesion. She notes she is been wearing tight shoes for a [employer] production at [facility] for about a month. She notes that [...] (FLONASE) 50 mcg/actuation nasal spray Use 1 [place] in each nostril once daily. econazole (SPECTAZOLE) [...] sites with positive rheumatoid factor ([facility]) 03/07/2015 Dr. Hurley ([facility]) Unspecified hemorrhoids without mention of [...] Abs Lymph 1.00 - 4.00 k/uL 1.64 Door% % 8.0 Abs Door <0.87 k/uL 0.60 Eosin% % 2.7 Abs [...] Level: 3 - Low documented in this encounterTrihealth [facility]hes[facility] Hospital07-18-2022 Miscellaneous Notes* Letter - Mammography Coordinator - 09/05/2021 10:07 AM EDT September 05, 2021 PID: [id number] Haydee Bustamante [address] [place] [address] Dear Ms. Bustamante, Your recent breast imaging exam on 09/05/2021 showed a possible finding that requires additional imaging studies for a complete evaluation. Most such findings are probably benign (not cancer). If you have a healthcare provider who ordered/prescribed your screening mammogram: Please call [phone] or [phone]: [phone] to schedule an appointment for your additional [...] and reports are kept on file at [facility] as part of your permanent medical record, and are available for your continuing care. Thank you for allowing us to help in meeting your health care needs. Sincerely, Dr. Bell Interpreting Radiologist [facility] (Additional imaging) documented in this encounterTrihealth Bethesda North Hospital07-18-2022 History of Present illness Narrative* Haider [...] 05, 2021 9:28 AM documented in this encounterCleveland [id number] History of Present illness Narrative* Melissa Means RN - 08/23/2021 4:36 PM EDT per verbal order by voice data communications engineer provider dr rowell she agrees with information * Melissa Means RN - 08/23/2021 12:01 PM EDT patient had inr completed at [facility] patients inr is 2.2 (patients [...] for follow up INR. documented in this encounterTrihealth Bethesda [facility] Hospital06-24-2022 History of Present illness Narrative* William Messina DO - 08/12/2021 11:31 AM EDT Images from the original note were not included. [facility] SECTION OF [facility]AL CARDIOLOGY [facility] OUTPATIENT VISIT DATE August 12, 2021 PRIMARY CARE PHYSICIAN: Claudine Durán [address] [place] [address] HISTORY OF PRESENT ILLNESS: Ms. Bustamante is a 76 year old female. The patient returns for follow-up due to history of known bicuspid aortic valve stenosis. Previous stenosis has been evaluation as showed this to be mild. Additionalhistory includes hypertension. 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 She is planning on doing [employer] again this summer. She denies chest discomfort, [...] sites with positive rheumatoid factor ([facility]) 03/07/2015 Dr. Hurley ([facility]) Unspecified hemorrhoids without mention of [...] SPINE FUSN,POST INTERBODY 2011 Dr. Armando at [facility]. Diskectomy and laminectomy PAST SURGICAL [...] (FLONASE) 50 mcg/actuation nasal spray Use 1 [place] in each nostril once daily. econazole (SPECTAZOLE) [...] biatrial enlargement but is otherwise normal. William Messina, , FACC, FACOI Clinical and Preventive Cardiology Department of Medicine and Division of Cardiology, [facility] Advertising Editorsap basis architect [facility] Advertising Editor of Congest[facility] Cardiology Office Advertising Editor [facility] Staff Senior Sourcing Manager, [place] and Edilma Pierce Department of Cardiovascular Medicine/Heart and Vascular [place], [facility] Clinical Tester Wafer Substrate Profressor of Medicine, [facility] Please note: This note has been produced using speech recognition software and may contain errors related to that system including madelyn, punctuation, spelling, words, gender and phrases that may be inappropriate. documented in this encounterTrihealth Bethesda [facility] Hospital06-10-2022 Miscellaneous Notes* Telephone Encounter - Nahomy Mercado - 07/29/2021 2:32 PM EDT Pharmacy faxed requesting the following refill. Pending Prescriptions Disp Refills SYMBICORT 160 MCG-4.5 MCG/ACTUATION HFA AEROSOL INHALER 30.6 g 4 Sig: USE 2 INHALATIONS TWICE A DAY INSTRUCTED YULIANA: Yes Patient last appointment: [address] [place] [address] Andujar Patient Phone numbers: [phone] (home) Request is for script(s) to be escript to pharmacy. Nahomy Mercado documented in this encounterTrihealth Bethesda [facility] Hospital06-06-2022 History of Present illness Narrative* Melissa Means RN - 07/25/2021 4:39 PM EDT pcp agrees with information * Melissa Means RN - 07/25/2021 11:43 AM EDT patient had inr completed at [facility] patients inr is 1.8 (patients [...] verbalized understanding. Presently scheduled in 4 weeks (7/5/22) for follow up INR. documented in this encounterTrihealth Bethesda [facility] Hospital05-23-2022 History of Present illness Narrative* Claudine Durán MD - 07/11/2021 8:18 AM EDT This note was created using CollabRxriter. Subjective Haydee Bustamante is a 76 year [...] toe surgery for now--has show. 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 Noted fell when missed top step. [...] positive rheumatoid factor (HCC) 03/07/2015 Dr. Hurley ([facility]) Unspecified hemorrhoids without mention of [...] (FLONASE) 50 mcg/actuation nasal spray Use 1 [place] in each nostril once daily. econazole (SPECTAZOLE) [...] Abs Lymph 1.00 - 4.00 k/uL 1.64 Door% % 8.0 Abs Door <0.87 k/uL 0.60 Eosin% % 2.7 Abs [...] The 10-year ASCVD risk score (Koby KIM Jr., et al., 2013) is: 17.2% [...] vaccine - ICD9: V04.89, ICD10: Z23 - [employer] COVID-19 VACCINE, AGE 12+ YR ([facility]) 6. COPD without exacerbation (HCC) - ICD9: 496, ICD10: J44.9 Continue present management. Discussed Dr. Andujar's instructions to use albuterol before activity that causes coughing 7. Bronchiectasis without complication (HCC) - ICD9: 494.0, ICD10: J47.9 As noted above. Fall discussed. Arthritis discussed. Claudine Durán MD documented in this encounterTrihealth [facility]hes[facility] Hospital05-12-2022 History of Present illness Narrative* Gold [...] venegas name is Katarzyna Malcolm RN your Psychiatric Therapist from Claudine Durán MD office at the [facility]. I am reaching out today because [...] Bustamante. This is Katarzyna Malcolm RN your Psychiatric Therapist from the [facility]. I am calling to check in with you concerning the MyChart questionnaire you have been receiving from me. I will call you again tomorrow and am looking forward to speaking with you. (Psychiatric Therapist enters next day in next patient outreach) Katarzyna Malcolm RN June 29, 2021 3:31 PM documented in this encounterTrihealth Bethesda [facility] Hospital04-21-2022 History of Present illness Narrative* Melissa Means RN - 06/09/2021 4:19 PM EDT per voice data communications engineer provider dr garza patient is to continue same dose PATIENT NOTIFIED OF INFORMATION * Melissa Means RN - 06/09/2021 10:26 AM EDT patient had inr completed at [facility] patients inr is 1.6 (patients [...] for follow up INR. documented in this encounterTrihealth Bethesda [facility] Hospital04-18-2022 Miscellaneous Notes* Telephone Encounter - Sergey [...] pharmacy. Sergey Ramirez Ma documented in this encounterTrihealth Bethesda [facility] Hospital04-11-2022 Instructions* Patient Instructions* Mirian Andujar MD [...] I am retiring from the staff of [facility] and the practice of Medicine on [...] and Johanna Mariscal PA-C. documented in this encounterTrihealth Bethesda [facility] Hospital04-11-2022 History of Present illness Narrative* Mirian Andujar MD - 2021 3:33 PM EDT [facility] [place], 2021: Name: Haydee Bustamante : 1945 INTERVAL [...] months, sooner if needed. Mirian Andujar MD, [facility] [place] [facility] [address] [place] [address] P: [phone] F: [phone] documented in this encounterTrihealth Bethesda [facility] Hospital04-07-2022 History of Present illness Narrative* Melissa Means RN - 05/26/2021 3:21 PM EDT voice data communications engineer provider agrees with information * Melissa Means RN - 05/26/2021 10:43 AM EDT patient had inr completed at [facility] patients inr is 1.6 (patients [...] is just slightly low documented in this encounterTrihealth [facility]04-01-2022 History of Present illness Narrative* Nara [...] 20, 2021 2:45 PM documented in this encounterTrihealth Bethesda [facility] Hospital01-24-2022 History of Present illness Narrative* Claudine Durán MD - 03/14/2021 8:16 AM EST This note was created using CollabRxriter. Subjective Haydee Bustamante is a 75 year [...] sites with positive rheumatoid factor ([facility]) 03/07/2015 Dr. Hurley ([facility]) Unspecified hemorrhoids without mention of [...] (FLONASE) 50 mcg/actuation nasal spray Use 1 [place] in each nostril once daily. potassium chloride [...] good control - Follows with Dr. Messina ([facility] cardiology) - Continue current medication(s) - Recommended [...] 714.0, ICD10: M05.79 Stable on meds through [facility]--Dr. Hurley Gets labs through his office. Lipid ordered. I spent a total of at least 30 minutes on the date of the service which included [id number] patient care, completing clinical documentation, obtaining and/or reviewing separately obtained history, performing a medically appropriate examination, counseling and educating the patient/family/caregiver and ordering medications, tests, or procedures. Claudine Durán MD documented in this encounterTrihealth Bethes[facility] Hospital01-18-2019 History of Past illness Narrative* Problem [...] of this encounter (statuses as of 05/20/2021) [facility] History of Past illness Narrative* Problem [...] of this encounter (statuses as of 05/22/2021) [facility]01[facility] History of Past illness Narrative* Problem [...] of this encounter (statuses as of 05/26/2021) [facility] History of Past illness Narrative* Problem [...] of this encounter (statuses as of 06/06/2021) [facility] of Past illness Narrative* Problem [...] of this encounter (statuses as of 06/09/2021) [facility] of Past illness Narrative* Problem [...] of this encounter (statuses as of 06/30/2021) [facility] of Past illness Narrative* Problem [...] of this encounter (statuses as of 07/25/2021) [facility] of Past illness Narrative* Problem [...] of this encounter (statuses as of 08/01/2021) [facility] of Past illness Narrative* Problem [...] of this encounter (statuses as of 08/12/2021) [facility] of Past illness Narrative* Problem [...] of this encounter (statuses as of 08/23/2021) [facility] of Past illness Narrative* Problem [...] of this encounter (statuses as of 09/06/2021) [facility] of Past illness Narrative* Problem [...] of this encounter (statuses as of 09/06/2021) [facility] Past illness Narrative* Problem [...] of this encounter (statuses as of 09/07/2021) [facility] Past illness Narrative* Problem [...] of this encounter (statuses as of 09/20/2021) [facility] of Past illness Narrative* Problem [...] of this encounter (statuses as of 09/29/2021) [facility] of Past illness Narrative* Problem [...] of this encounter (statuses as of 10/13/2021) [facility] Past illness Narrative* Problem [...] of this encounter (statuses as of 10/13/2021) [facility] of Past illness Narrative* Problem [...] of this encounter (statuses as of 10/18/2021) [facility] Past illness Narrative* Problem [...] of this encounter (statuses as of 10/18/2021) [facility] Past illness Narrative* Problem [...] of this encounter (statuses as of 10/19/2021) [facility] Past illness Narrative* Problem [...] of this encounter (statuses as of 10/27/2021) [facility] Past illness Narrative* Problem [...] of this encounter (statuses as of 11/01/2021) [facility] illness Narrative* Problem [...] of this encounter (statuses as of 11/08/2021) [facility] Past illness Narrative* Problem [...] of this encounter (statuses as of 11/10/2021) [facility] Past illness Narrative* Problem [...] of this encounter (statuses as of 11/10/2021) [facility] illness Narrative* Problem [...] of this encounter (statuses as of 11/29/2021) [facility] illness Narrative* Problem [...] of this encounter (statuses as of 12/04/2021) [facility] Past illness Narrative* Problem [...] of this encounter (statuses as of 12/22/2021) [facility] Narrative* Problem [...] of this encounter (statuses as of 12/27/2021) [facility] Past illness Narrative* Problem [...] of this encounter (statuses as of 01/05/2022) [facility] illness Narrative* Problem [...] of this encounter (statuses as of 01/11/2022) [facility] Past illness Narrative* Problem [...] of this encounter (statuses as of 01/17/2022) [facility] illness Narrative* Problem [...] of this encounter (statuses as of 01/17/2022) [facility] Past illness Narrative* Problem [...] of this encounter (statuses as of 02/02/2022) [facility] Past illness Narrative* Problem [...] of this encounter (statuses as of 02/22/2022) [facility] Past illness Narrative* Problem [...] of this encounter (statuses as of 02/24/2022) [facility] Past illness Narrative* Problem [...] of this encounter (statuses as of 03/14/2022) [facility] Past illness Narrative* Problem [...] of this encounter (statuses as of 03/30/2022) [facility] Past illness Narrative* Problem [...] of this encounter (statuses as of 04/06/2022) [facility] Narrative* Problem [...] of this encounter (statuses as of 04/21/2022) [facility] Past illness Narrative* Problem [...] of this encounter (statuses as of 05/04/2022) [facility] Narrative* Problem [...] of this encounter (statuses as of 05/24/2022) [facility] Narrative* Problem [...] of this encounter (statuses as of 06/01/2022) [facility] Narrative* Problem [...] of this encounter (statuses as of 06/29/2022) [facility] Narrative* Problem [...] of this encounter (statuses as of 07/24/2022) [facility] Narrative* Problem [...] of this encounter (statuses as of 07/24/2022) [facility] Narrative* Problem [...] of this encounter (statuses as of 08/13/2022) [facility] Past illness Narrative* Problem [...] of this encounter (statuses as of 08/15/2022) [facility] illness Narrative* Problem [...] of this encounter (statuses as of 09/08/2022) [facility] Past illness Narrative* Problem [...] of this encounter (statuses as of 09/11/2022) [facility] Past illness Narrative* Problem [...] of this encounter (statuses as of 09/15/2022) [facility] Past illness Narrative* Problem [...] of this encounter (statuses as of 09/26/2022) [facility] Past illness Narrative* Problem [...] of this encounter (statuses as of 10/10/2022) [facility] Past illness Narrative* Problem [...] of this encounter (statuses as of 10/13/2022) [facility] Past illness Narrative* Problem [...] of this encounter (statuses as of 10/27/2022) [facility] Past illness Narrative* Problem [...] of this encounter (statuses as of 10/27/2022) [facility] Past illness Narrative* Problem [...] of this encounter (statuses as of 10/31/2022) [facility] Past illness Narrative* Problem [...] of this encounter (statuses as of 10/31/2022) [facility] Narrative* Problem [...] of this encounter (statuses as of 11/02/2022) [facility] Narrative* Problem [...] of this encounter (statuses as of 11/10/2022) [facility] Narrative* Problem [...] of this encounter (statuses as of 11/23/2022) [facility] Narrative* Problem [...] of this encounter (statuses as of 12/07/2022) [facility] Narrative* Problem [...] of this encounter (statuses as of 12/07/2022) [facility] Narrative* Problem [...] of this encounter (statuses as of 12/15/2022) [facility] illness Narrative* Problem [...] of this encounter (statuses as of 12/20/2022) [facility] Narrative* Problem [...] of this encounter (statuses as of 12/24/2022) [facility] illness Narrative* Problem [...] of this encounter (statuses as of 12/24/2022) [facility] Narrative* Problem [...] of this encounter (statuses as of 01/04/2023) [facility] Narrative* Problem [...] of this encounter (statuses as of 01/05/2023) [facility] Narrative* Problem [...] of this encounter (statuses as of 01/10/2023) [facility] Narrative* Problem [...] of this encounter (statuses as of 01/18/2023) [facility] Narrative* Problem [...] of this encounter (statuses as of 01/24/2023) [facility] Narrative* Problem [...] of this encounter (statuses as of 02/03/2023) [facility] Narrative* Problem [...] of this encounter (statuses as of 02/08/2023) [facility] Narrative* Problem [...] of this encounter (statuses as of 03/24/2023) [facility] Narrative* Problem [...] of this encounter (statuses as of 03/27/2023) [facility] Narrative* Problem [...] of this encounter (statuses as of 04/01/2023) [facility] Narrative* Problem [...] of this encounter (statuses as of 04/03/2023) [facility] Past illness Narrative* Problem [...] of this encounter (statuses as of 04/30/2023) [facility]Reason for [facility] Narrative* Chief Complaint BLOOD IN SPUTUM DEBILITY Reason for Visit Colitis Confusion COVID-19 Generalized weakness Histoplasmosis [facility] Work Phone: Discharge summary Author Jasmyn Chan [facility] April 05, 2023 11:35am Note Date/Time April 05, 2023 11:26am [facility] Medical Records Department [address] [place] [address] Transfer to [facility] MR#: [id number] Acct: [id number] Name: HAYDEE BUSTAMANTE Rep #:[id number] : 1945 77 From: Jasmyn Chan DO PCP: Dr. Claudine Durán MD Status:AD M IN Certification of patient admission REQUIRED AT TIME OF ADMISSION. I CERTIFY THAT POST-HOSPITAL ECF SERVICES ARE REQUIRED TO BE GIVEN ON AN IN-PATIENT BASIS BECAUSE OF THE ABOVE NAMED PATIENT'S NEED FOR DETENTION CARE ON A CONTINUING BASIS FOR THE [...] Royal; Leobardo Calloway; Jorgito Agarwal; Rosalina Herrera DATABASE ADMIN Discharge Orders/Prescriptions Prescriptions: New acetaminophen 325 mg [...] Qty: 0 0RF fluticasone propionate 50 mcg/actuation [place],Suspension 1 spray NASAL DAILY Qty: 0 0RF [...] in before D/C Order can be placed): [facility] 04/05/23 6164 <Electronically signed by Jasmyn Chan DO> Cosigner Signature (if applicable): CC: DATABASE ADMIN-C Rosalina Herrera; Dr. Alisa Mathew MD; Dr. Naman Meredith MD; Dr. Geno Rush MD; Dr. Lg Rios MD; Dr. Rachael Weiss MD; Dr. Stevan Rodríguez MD; Dr. Adarsh Prakash MD; Dr. Jing Reyes MD; Dr. Claudine Durán MD; Dr. Alcides Able MD; Dr. Efrain Quevedo MD; Dr. Laine Veras MD; Dr. Frederick Dick DO; Dr. London Sandra MD; Dr. Leobardo Calloway MD; Dr. Chris Royal MD; Dr. Jorgito Agarawl DO ~ [facility] Work Phone: Discharge summary Author Ron Mariscal [facility] Note Date/Time August 23, 2024 10:29 am [facility] Medical Records Department [address] [place] [address] Emergency Department Summary 08/23/24 MR#: [id number] Acct: [id number] Name: HAYDEE BUSTAMANTE Rep #:[id number] : 1945 79 From: Ron Mariscal MD [...] at any point in time or syncope. [id number]. Lives by herself. 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 She states this morning she laid [...] to if her wrist was not injured [facility] Medical History Hypertension GERD (gastroesophageal reflux [...] suppl ement 03/19/23 10/01/23 History tablet) vitamins A,C,S-rqhq-pmzjfd 2,148 2 tab PO BID eye heal [...] tabs Instructions: ON HOLD FOR COLONOSCOPY omega 4-eim-oym-fish oil 1,200 mg 1 cap PO DAILY [...] 82.3 H Lymph % (Auto) 8.1 L Door % (Auto) 8.6 Eos % (Auto) 0.1 [...] distal radius with intra-articular extension. Reading Location: [facility] Brain CT 08/23/24 08:06 IMPRESSION: 1. Generalized brain atrophy. 2. Small vessel ischemic/degenerative changes. 3. No acute intracranial hemorrhage, midline shift or mass effect. If symptoms persist, further evaluation with MRI is recommended. Reading Location: [facility] Management Discussion w/another healthcare provider: Hospitalist and Quality Assurance Qa Lab Technician (ezekiel amanda) Procedures Upper Extremity Splints Upper [...] functional status Disposition Disposition: Acute Care Hospital [facility] What to do if you have Problems For any increased pain, shortness of breath, bleeding, nausea or vomiting, chestpain, or any unexpected problems, contact your Primary Care Provider. Call [facility] ([phone]) or report to the closest Emergency Room. Call 911 if necessary. 08/23/24 1029 <Electronically signed by Ron Mariscal MD> Cosigner Signature (if applicable): CC: Dr. Claudine Durán MD ~ Signed [facility] Work Phone: Discharge summary Author Krissy Hilario [facility] Note Date/Time October 19, 2024 2: 34am [facility] Medical Records Department [address] [place] [address] Emergency Department Summary 10/19/24 MR#: [id number] Acct: [id number] Name: HAYDEE BUSTAMANTE Rep #:[id number] : 1945 79 From: Krissy Hilario MD PCP: Dr. Claudine Durán MD Status:RE G ER Location: ED HPI HPI - Fall History of Present Illness Chief Complaint: Fall Narrative Narrative: Patient is a 79-year-old female presenting to the emergency department after a fall. Patient has past medical history as below including DVT on warfarin. Patient states that she lives at home and was using her walker as she normally does when she bent down to order picker a blanket that was on the floor and she lost her balance causing her to fall backwards striking the back of her head. She denies losing consciousness. Denies any neck or back pain. She is currently being treated for shingles on her right flank. States she was able to get up onher own. She then called 911 because she was told if she ever falls and hits herhead she is supposed to. She denies any chest pain, shortness of breath, palpitations, lightheadedness or dizziness. Denies any pain in her hips or legs. She reports she does have a wound from the fall to her left elbow. Tetanus vaccine has been given in the last 5 years she reports. [facility] Medical History Declining functional status Closed head injury without concussion Closed fracture of distal end of left radius Hypertension GERD (gastroesophageal reflux disease) Pericardial effusion [...] suppl ement 03/19/23 10/01/23 History tablet) vitamins A,C,I-yunp-nutocu 2,148 2 tab PO BID eye heal [...] 10/02/23 Rx (Voltaren Arthritis Pain) #100 grams albuterol sulfate 90 mcg/actuation 2 puff inhalation [...] Instructions .Route . COMPLEX 08/23/24 Unknown History gabapentin 300 mg capsule 300 mg PO BID #0 caps Unknown Rx warfarin 6 mg tablet (Jantoven) 6 mg PO DINNER #0 tabs 08/27/24 Unknown Rx Allergy/AdvReac Type Severity Reaction Status Date / Time Penicillins Allergy Severe Anaphylaxis Verified 10/19/24 00:41 Surgical History History of transcatheter aortic valve replacement (TAVR) History of back surgery History of esophagogastroduodenoscopy (EGD) History of tonsillectomy History of embolic filter insertion Hx of foot surgery Social History household members: none Smoking Status: Former smoker alcohol intake: never substance use type: does not use ROS ROS ED ROS Narrative see HPI EXAM Physical Exam Narrative Exam Narrative: Vital signs: Reviewed General: Alert and oriented x 3. No acute distress HEENT: Head is normocephalic and atraumatic. No lacerations or abrasions to thehead or face. sinuses nontender, pupils equal round and reactive. Nares are patent. Oropharynx and throat exams normal. Neck: Supple without lymphadenopathy nontender. No midline cervical spinal tenderness palpation. No step-offs or deformities. Cardiovascular: Regular rate and rhythm, no murmurs. No rubs or gallops. Normal S1 and S2 Respiratory: Clear to auscultation bilaterally. No wheezes, rales, rhonchi Abdominal: Soft and nontender. Normal bowel sounds. No guarding or rebound. Nonsurgical abdomen Extremities: There is a skin tear to the left elbow that is about 2 cm long. Nolaceration. No tenderness to palpation of the extremity other than right over the skin tear. Healing ecchymosis on R hand. No tenderness to palpation of the right hand, wrist or forearm. No midline thoracic or lumbar spinal tenderness topalpation. No step-offs or deformities. Hips are stable and nontender to palpation. Extremities are otherwise atraumatic and nontender to palpation withnormal active range of motion. Skin: Shingles rash to right flank covered with bandaid. Neurological: Cranial nerves II through XII are grossly intact. Normal strengthand sensation. Normal cerebellar function The rest of the physical exam is unremarkable Const Vital Signs: 10/19/24 00:42 10/19/24 00:42 Temperature 98.2 F Temperature Source Oral Pulse Rate 88 Respiratory Rate 18 Respiratory Effort Normal Respiratory Depth Normal Respiratory Pattern Normal Blood Pressure 138/71 H Blood Pressure Mean 93 Pulse Ox 99 Oxygen Delivery Method Room Air Room Air MDM MDM MDM Narrative Medical decision making narrative: Patient is a 79-year-old female presenting to the emergency department after mechanical fall. Patient resting bed comfortably in no acute distress. Vitals are stable. Patient is on warfarin and given her age and head trauma will obtain CT brain and cervical spine. Tetanus is up-to-date. Skin tear will be cleansed and dressed. CT brain with no acute intracranial abnormality. CT cervical spine with no fractures or dislocations. INR 2.2. Patient ambulated with walker without difficulty. Patient updated on the negative imaging. Patient discharged from the Emergency Department. I do not feel that the patient's evaluation reveals any acute reason for admission at this time. I instructed them to either follow-up with their primary care physician or promptly return tothe Emergency Department for reevaluation should symptoms worsen or new symptomsdevelop. I explained what symptoms would indicate the need to return to the emergency department. Shared decision making was used. The patient voiced understanding of the treatment plan and is agreeable with it. Clinical impression Fall Skin tear History & Record Review Discussion w/independent historian: Patient Lab Data Attestation: I reviewed the patient's lab results. Labs: Laboratory Results - last 24 hr 10/19/24 01:05 PT 25.2 H INR 2.2 Radiography Diagnostic Testing: Clinical Impression(s) from Imaging Studies Brain CT 10/19/24 00:56 IMPRESSION: No CT evidence for acute brain abnormality. Reading Location: [place] [address] 10/19/24 00:56 IMPRESSION: Straightened cervical curve denoting myospasm. No acute vertebral fractures, structural collapse or dislocation. 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 Reading Location: [place] [address] Discharge Plan Triage Chief Complaint: Fall ED Provider: Krissy Hilario Dx/Rx/DC Orders Clinical Impression: Fall, Skin tear of elbow without complication Instructions: ED Mechanical Fall, ED Skin Tear (Skin Avulsion) Prescriptions: No Action fluticasone propion-salmeterol [Wixela Inhub] 250-50 mcg/dose blister [...] 6mg orally Sun/Sun/Sun/Sun/sat, 5 mg orally / gabapentin 300 mg Capsule 300 mg PO BID Qty: 0 0RF warfarin [Jantoven] 6 mg Tablet 6 mg PO DINNER Qty: 0 0RF metoprolol succinate 25 mg tablet extended release 24 hr 25 mg PO QDAY Qty: 30 11RF Primary Care Provider: Claudine Durán Referrals: Claudine Durán MD [Primary Care Provider] - 2 Days Activity Restrictions/Additional Instructions: Your evaluation in the Emergency Department did not reveal any acute reason for admission. However, I want to emphasize that you may be early in the course of adisease process or illness even if it is not present. For this reason you shouldfollow-up within 24 hours for reevaluation with either your primary care physician or if necessary back here in the Emergency Department. You should return to the Emergency Department immediately if your symptoms worsen or new symptoms develop. Print Language: Guinean Disposition Disposition: Home, Self Care What to do if you have Problems For any increased pain, shortness of breath, bleeding, nausea or vomiting, chestpain, or any unexpected problems, contact your Primary Care Provider. Call [facility] ([phone]) or report to the closest Emergency Room. Call 911 if necessary. 10/19/24 0234 <Electronically signed by Krissy Hilario MD> Cosigner Signature (if applicable): CC: Dr. 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 rheumatoid factor (HCC) [facility] Diagnosis Embolism and thrombosis (HCC) Embolism and thrombosis of unspecified site [facility] Diagnosis Moderate COPD (chronic obstructive pulmonary disease) (HCC)- Primary Chronic airway obstruction, not elsewhere classified Bronchiectasis without complication (HCC) Bronchiectasis without acute exacerbation Centrilobular emphysema (HCC) Other emphysema [facility] Diagnosis Cough due to bronchospasm Acute bronchospasm [facility] Diagnosis Embolism and thrombosis (HCC) Embolism and thrombosis of unspecified site [facility] noteNo assessment information availableWMer[facility] Work Phone: Evaluation note* Diagnosis Personal history of DVT (deep vein thrombosis)- Primary Personal history of venous thrombosis and embolism [facility] Diagnosis Aortic stenosis with bicuspid valve- Primary Essential hypertension Unspecified essential hypertension [facility] Diagnosis Personal history of DVT (deep vein thrombosis)- Primary Personal history of venous thrombosis and embolism [facility] this [facility]* Diagnosis Encounter for screening mammogram for breast cancer documented in this encounter [facility] note* Diagnosis Gastroesophageal reflux disease without esophagitis- Primary Esophageal reflux Other viral warts Elevated LDL cholesterol level Pure hypercholesterolemia Essential hypertension Unspecified essential hypertension Need for COVID-19 vaccine COPD without exacerbation (HCC) Bronchiectasis without complication (HCC) Bronchiectasis without acute exacerbation [facility] this [facility]* Diagnosis Toe infection- Primary Unspecified local infection of skin and subcutaneous tissue Sinobronchitis Unspecified sinusitis (chronic) [facility] this [facility]* Diagnosis Personal history of DVT (deep vein thrombosis)- Primary Personal history of venous thrombosis and embolism [facility]* Diagnosis Abnormal mammogram Abnormal mammogram, unspecified [facility]* Diagnosis Ulcer of toe of left foot, limited to breakdown of skin (HCC)- Primary Hammer toe of left foot Onychodystrophy Other specified disease of nail [facility]* Diagnosis Embolism and thrombosis (HCC) Embolism and thrombosis of unspecified site [facility] Diagnosis Ulcer of toe of left foot, limited to breakdown of skin (HCC) Hammer toe of left foot [facility] Diagnosis Ulcer of toe of left foot, limited to breakdown of skin (HCC)- Primary Hammer toe of left foot Hallux rigidus of left foot Hallux rigidus [facility]* Diagnosis COPD without exacerbation (HCC) Essential hypertension Unspecified essential hypertension [facility]* Diagnosis Essential hypertension- Primary Unspecified essential hypertension Chronic obstructive pulmonary disease, unspecified COPD type (HCC) Encounter for immunization Need for other specified prophylactic vaccination against single bacterial disease Gastroesophageal reflux disease without esophagitis Esophageal reflux Bronchiectasis without complication (HCC) Bronchiectasis without acute exacerbation Aortic stenosis with bicuspid valve [facility] Diagnosis Lung nodules- Primary Other nonspecific [...] of calcium metabolism [facility] Personal history of DVT (deep vein thrombosis)- Primary Personal history of venous thrombosis and embolism [facility] Diagnosis Essential hypertension- Primary Unspecified essential hypertension Chronic anticoagulation Long-term (current) use of 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 Aortic stenosis with bicuspid valve Rheumatoid arthritis involving multiple sites with positive rheumatoid factor (HCC) COPD without exacerbation (HCC) Bronchiectasis without complication (HCC) Bronchiectasis without acute exacerbation Acquired hammertoe of left foot Early dry stage nonexudative age-related macular degeneration of both eyes [facility] Diagnosis Personal history of DVT (deep vein thrombosis)- Primary Personal history of venous thrombosis and embolism [facility] Diagnosis Personal history of DVT [...] thrombosis and embolism [facility]* Diagnosis Aortic stenosis with bicuspid valve- Primary Essential hypertension Unspecified essential hypertension History of recurrent deep vein thrombosis (DVT) documented [facility]* Diagnosis Rheumatoid arthritis involving multiple sites with positive rheumatoid factor (HCC) Low back pain with right-sided sciatica, unspecified back pain laterality, unspecified chronicity Pseudogout Other disorder of calcium metabolism [facility]* Diagnosis correction current use of anticoagulant therapy- Primary Long-term (current) use of 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 [facility]* Diagnosis Essential hypertension- Primary Unspecified essential [...] with bicuspid valve [facility]* Diagnosis Chronic anticoagulation Long-term (current) use of 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 documented [facility]* Diagnosis Chronic anticoagulation Long-term (current) use of 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 [facility]* Diagnosis Personal history of DVT (deep vein thrombosis)- Primary Personal history of venous thrombosis and embolism documented [facility]* Diagnosis Embolism and thrombosis (HCC)- Primary Embolism and thrombosis of unspecified site [facility]* Diagnosis DDD (degenerative disc disease), lumbar- Primary Degeneration of lumbar or lumbosacral intervertebral disc Hip pain, acute, left Age-related osteoporosis without current pathological fracture Senile osteoporosis [facility]* Diagnosis Embolism and thrombosis (HCC)- Primary Embolism and thrombosis of unspecified site [facility] Diagnosis Rheumatoid arthritis involving multiple sites with positive rheumatoid factor (HCC) Low back pain with right-sided sciatica, unspecified back pain laterality, unspecified chronicity documented [facility]* Diagnosis Lung nodules Other nonspecific abnormal finding of lung field documented [facility] this [facility]* Diagnosis Encounter for screening mammogram for breast cancer [facility] this [facility]* Diagnosis Encounter for immunization- Primary Need for other specified prophylactic vaccination against single bacterial disease documented in this encounter [facility] note* Diagnosis Embolism and thrombosis (HCC)- Primary Embolism and thrombosis of unspecified site documented in this encounter [facility] note* Diagnosis Personal history of DVT (deep vein thrombosis)- Primary Personal history of venous thrombosis and embolism documented in this encounter [facility] note* Diagnosis Acute cough- Primary [facility] this [facility]* Diagnosis Onset Date Resolution Status Colitis acute Confusion acute COVID-19 acute Generalized weakness acute Histoplasmosis acute [facility] Work Phone: Evaluation note* Diagnosis Onset Date Resolution Status Confusion acute COVID-19 acute Generalized weakness acute Histoplasmosis acute [facility] Work Phone: Evaluation note* Diagnosis Onset Date Resolution Status Confusion acute COVID-19 acute Generalized weakness acute Histoplasmosis acute Adult failure to thrive acut e Cellulitis acute Generalized weakness acute History of DVT (deep vein thrombosis) acute Leg edema acute Rheumatoid arthritis acute Weakness acute [facility] Work Phone: Evaluation note* Diagnosis Hypoalbuminemia- Primary Other disorders of plasma protein metabolism Elevated alkaline phosphatase level Other nonspecific abnormal serum enzyme levels Elevated LFTs Other abnormal blood chemistry Anemia, unspecified type Leukocytosis, unspecified type documented in this encounter [facility] note* Diagnosis Onset Date Resolution Status Adult failure to thrive acut e Cellulitis acute History of DVT (deep vein thrombosis) acute Leg edema acute Rheumatoid arthritis acute Thrombocytopenia acute Weakness acute Anemia chronic [facility] Work Phone: Evaluation note* Diagnosis Onset [...] acute COPD (chronic obstructive pulmonary disease) chronic [facility] Work Phone: Evaluation note* Diagnosis Onset [...] resolved Edema resolved Failure to thrive resolved [facility] Work Phone: Evaluation note* Diagnosis Rheumatoid arthritis involving multiple sites with positive rheumatoid factor (HCC) Low back pain with right-sided sciatica, unspecified back pain laterality, unspecified chronicity documented [facility] this [facility]* Diagnosis Rheumatoid arthritis involving multiple sites with positive rheumatoid factor (HCC) Low back pain with right-sided sciatica, unspecified back pain laterality, unspecified chronicity Pseudogout Other disorder of calcium metabolism documented in this encounter [facility] note* Diagnosis Personal history of DVT (deep vein thrombosis)- Primary Personal history of venous thrombosis and embolism documented in this encounter [facility] note* Diagnosis Acute pain of right knee- Primary Chronic anticoagulation Long-term (current) use of 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 Hip pain, acute, left Pain and swelling of right lower leg [facility] this [facility]* Diagnosis Personal history of DVT (deep vein thrombosis)- Primary Personal history of venous thrombosis and embolism [facility]* Diagnosis Anemia, unspecified type- Primary Elevated LFTs Other abnormal blood chemistry COPD without exacerbation (HCC) Essential hypertension Unspecified essential hypertension Cough due to bronchospasm Acute bronchospasm Chronic anticoagulation Long-term (current) use of 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 Encounter for long-term current use of medication Gastric ulcer with hemorrhage, unspecified chronicity [facility]* Diagnosis Right knee pain, unspecified chronicity- Primary documented [facility]* Diagnosis correction current use of anticoagulant therapy- Primary Long-term (current) use of 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 documented [facility]* Diagnosis COPD without exacerbation (HCC) documented [facility]* Diagnosis COPD without exacerbation (HCC) [facility]* Diagnosis Rheumatoid arthritis involving multiple sites with positive rheumatoid factor (HCC)- Primary Edema, unspecified type Encounter for therapeutic drug monitoring documented in this encounter [facility] note* Diagnosis Personal history of DVT (deep vein thrombosis)- Primary Personal history of venous thrombosis and embolism documented [facility]* Diagnosis Rheumatoid arthritis involving multiple sites with positive rheumatoid factor (HCC)- Primary Pain and swelling of right knee documented [facility]* Diagnosis Nonrheumatic aortic valve stenosis- Primary Aortic valve disorders Mitral valve stenosis, non-rheumatic Mitral valve disorders Essential hypertension Unspecified essential hypertension Pericardial effusion (noninflammatory) Leg edema Edema correction current use of anticoagulant therapy Long-term (current) use of 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 documented [facility]* Diagnosis Personal history of DVT (deep vein thrombosis)- Primary Personal history of venous thrombosis and embolism documented [facility]* Diagnosis Disseminated histoplasmosis Histoplasmosis, unspecified without mention of manifestation [facility]* Diagnosis COPD without exacerbation (HCC) documented [facility]* Diagnosis Disseminated histoplasmosis- Primary Histoplasmosis, unspecified [...] of digestive system documented [facility]* Diagnosis Edema, unspecified type- Primary documented [facility] this [facility]* Diagnosis Personal history of DVT (deep vein thrombosis)- Primary Personal history of venous thrombosis and embolism documented [facility]* Diagnosis Anemia, unspecified type- Primary Bilateral lower extremity edema Edema Chronic anticoagulation Long-term (current) use of 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 Moderate to severe aortic stenosis Aortic valve disorders Disseminated histoplasmosis Histoplasmosis, unspecified without mention of manifestation Nodule of lower lobe of left lung Encounter for long-term current use of medication documented [facility]* Diagnosis Edema, unspecified type documented [facility] this [facility]* Diagnosis Personal history of DVT (deep vein thrombosis)- Primary Personal history of venous thrombosis and embolism documented [facility]* Diagnosis Rheumatoid arthritis involving multiple sites with positive rheumatoid factor (HCC) Low back pain with right-sided sciatica, unspecified back pain laterality, unspecified chronicity documented [facility]* Diagnosis Disseminated histoplasmosis Histoplasmosis, unspecified without mention of manifestation [facility]* Diagnosis Aortic valve stenosis, etiology of cardiac valve disease unspecified- Primary Mitral valve stenosis, unspecified etiology Pericardial effusion Unspecified disease of pericardium Gastrointestinal hemorrhage, unspecified gastrointestinal hemorrhage type Rheumatoid arthritis with positive rheumatoid factor, involving unspecified site (HCC) Edema, unspecified type Blood loss anemia Iron deficiency anemia secondary to blood loss (chronic) documented [facility]* Diagnosis Aortic stenosis with bicuspid valve- Primary Pericardial effusion Unspecified disease of pericardium Essential hypertension Unspecified essential hypertension Chronic heart failure with preserved ejection fraction (HFpEF) (HCC) Mitral valve stenosis, non-rheumatic Mitral valve disorders Nonrheumatic tricuspid valve regurgitation Tricuspid valve disorders, specified as nonrheumatic documented [facility]* Diagnosis Personal history of DVT (deep vein thrombosis)- Primary Personal history of venous thrombosis and embolism documented [facility]* Diagnosis Chronic anticoagulation Long-term (current) use of 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 documented in this [facility]* Diagnosis Personal history of DVT (deep vein thrombosis)- Primary Personal history of venous thrombosis and embolism documented [facility] Diagnosis Acute cough [facility]* Diagnosis Disseminated histoplasmosis Histoplasmosis, unspecified without mention of manifestation documented [facility]* Diagnosis Personal history of DVT (deep vein thrombosis)- Primary Personal history of venous thrombosis and embolism documented [facility] Diagnosis Personal history of DVT (deep vein thrombosis)- Primary Personal history of venous thrombosis and embolism documented [facility]* Diagnosis COPD without exacerbation (HCC) documented [facility]* Diagnosis Disseminated histoplasmosis- Primary Histoplasmosis, unspecified [...] antibiotics Counseling, unspecified [facility] Diagnosis Nonrheumatic aortic valve stenosis- Primary Aortic valve disorders Encounter for preprocedural cardiovascular examination Pre-operative cardiovascular examination Aortic valve disorder Aortic valve disorders [facility]* Diagnosis Rheumatoid arthritis with positive rheumatoid factor, involving unspecified site (HCC)- Primary Nonrheumatic aortic valve stenosis Aortic valve disorders Nonrheumatic mitral valve stenosis Pericardial effusion Unspecified disease of pericardium Histoplasmosis Histoplasmosis, unspecified without mention of manifestation [facility]* Diagnosis Personal history of DVT (deep vein thrombosis)- Primary Personal history of venous thrombosis and embolism [facility]* Diagnosis Disseminated histoplasmosis Histoplasmosis, unspecified without mention of manifestation Nonrheumatic aortic valve stenosis Aortic valve disorders [facility]* Diagnosis Chronic heart failure with preserved [...] Aortic valve disorders [facility]* Diagnosis Personal history of DVT (deep vein thrombosis)- Primary Personal history of venous thrombosis and embolism Nonrheumatic aortic valve stenosis Aortic valve disorders [facility]* Diagnosis Nonrheumatic aortic valve stenosis- Primary Aortic valve disorders Encounter to establish care Other reasons for seeking consultation Pre-operative cardiovascular examination Mitral stenosis with insufficiency, rheumatic Mitral stenosis with insufficiency Rheumatoid arthritis with positive rheumatoid factor, involving unspecified site (HCC) Nonrheumatic aortic valve stenosis Aortic valve disorders [facility]* Diagnosis Nonrheumatic aortic valve stenosis Aortic valve disorders Nonrheumatic aortic valve stenosis Aortic valve disorders [facility]* Diagnosis Nonrheumatic aortic valve stenosis Aortic valve disorders Encounter for preprocedural cardiovascular examination Pre-operative cardiovascular examination Nonrheumatic aortic valve stenosis Aortic valve disorders [facility]* Diagnosis Nonrheumatic aortic valve stenosis- Primary Aortic valve disorders [facility] Diagnosis Nonrheumatic aortic valve stenosis- Primary Aortic valve disorders documented in this encounter [facility] note* Diagnosis Nonrheumatic aortic valve stenosis- Primary Aortic valve disorders documented in this encounter [facility] note* Diagnosis Nonrheumatic aortic valve stenosis Aortic valve disorders documented in this encounter [facility] note* Diagnosis Nonrheumatic aortic valve stenosis- Primary Aortic valve disorders documented in this encounter [facility] note* Diagnosis Nonrheumatic aortic valve stenosis- Primary Aortic valve disorders documented in this encounter [facility] note* Diagnosis Personal history of DVT (deep vein thrombosis)- Primary Personal history of venous thrombosis and embolism documented in this encounter [facility] note* Diagnosis Nonrheumatic aortic valve stenosis- Primary Aortic valve disorders Aortic valve stenosis, etiology of cardiac valve disease unspecified documented in this encounter [facility] note* Diagnosis Nonrheumatic aortic valve stenosis- Primary Aortic valve disorders Aortic valve disorder Aortic valve disorders Aortic valve stenosis, etiology of cardiac valve disease unspecified documented in this encounter [facility] note* Diagnosis Encounter for preoperative anesthesiology assessment for cardiac surgery- Primary Aortic valve stenosis, etiology of cardiac valve disease unspecified documented in this encounter [facility] note* Diagnosis Nonrheumatic aortic valve stenosis- Primary Aortic valve disorders Aortic valve stenosis, etiology of cardiac valve disease unspecified documented in this encounter [facility] note* Diagnosis Nonrheumatic aortic valve stenosis Aortic valve disorders Aortic valve disorder Aortic valve disorders Aortic valve stenosis, etiology of cardiac valve disease unspecified documented in this encounter [facility] note* Diagnosis Personal history of DVT (deep vein thrombosis)- Primary Personal history of venous thrombosis and embolism Aortic valve stenosis, etiology of cardiac valve disease unspecified documented in this encounter [facility] note* Diagnosis Nonrheumatic aortic valve stenosis- Primary Aortic valve disorders [facility] Diagnosis Nonrheumatic aortic valve stenosis- Primary Aortic valve disorders S/P TAVR (transcatheter aortic valve replacement) Heart valve replaced by other means Chronic diastolic heart failure (HCC) Chronic diastolic heart failure [facility] care note* Diagnosis Disseminated histoplasmosis- Primary Histoplasmosis, unspecified [...] antibiotics Counseling, unspecified [facility] Diagnosis Medicare annual wellness visit, subsequent- [...] of respiratory system [facility] Diagnosis S/P TAVR (transcatheter aortic [...] of respiratory system [facility] Diagnosis Personal history of DVT (deep vein thrombosis)- Primary Personal history of venous thrombosis and embolism [facility] Diagnosis Herpes zoster without complication- Primary Herpes zoster without mention of complication Skin tear of left upper arm without complication, initial encounter Contusion of right thumb without damage to nail, subsequent encounter Chronic anticoagulation Long-term (current) use of 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 Closed fracture of left wrist, sequela Contusion of right upper extremity, subsequent encounter documented in this [facility] Author Laine Veras [facility] March 26, 2023 4:04pm Note Date/Time March 26, 2023 4 :05pm [facility] Medical Records Department [address] [place] [address] H&P Exam - Hospitalist 03/26/23 1551 MR#: [id number] Acct: [id number] Name: HAYDEE BUSTAMANTE Rep #:[id number] : 1945 77 From: Laine Veras MD PCP: Dr. Claudine Durán MD Status:AD M ADAIR Location: [facility] RJ160-5 [facility] Date of Admission: 03/26/23 Date of Service: 03/26/23 Chief Complaint: Confusion, shortness of breath HPI Narrative HAYDEE BUSTAMANTE, is a 77-year-old female history of hypertension, GERD, RA, PE, severe aortic stenosis and moderate pericardial effusion, histoplasmosis presented to [facility] ED 03/26/2023 with shortness of breath andinability to care for self at home. Recently seen 03/21/2023 in [place] ED and transferred to [facility] due to concern for bowel [...] outpatient basis. She was just discharged from [place] yesterday and today legs are weeping and she is urinating on herself. She was discharged home on Cipro and Flagyl and itraconazole twice daily as well as 4 more days of dexamethasone and given Imodium for diarrhea. She was instructed to hold her hydrochlorothiazide and irbesartan due to kidney function. In [facility] ED patient 96% on room air with [...] reports that she got home yesterday from [facility] and was talking about the fact that she was given a urine pietro and could not pee until today, has [...] oriented but very hard to direct inconversation. [facility] Medical History (Updated 03/26/23 @ [...] Q24H 03/19/23 [History Last Taken Unknown] vitamins A,C,L-tfce-toybwc 2,148 mcg-113 mg-45 mg-17.4 mg tablet (PreserVision [...] 80.3 H, Lymph % (Auto) 6.3 L, Door % (Auto) 9.6, Eos % (Auto) 0.0, [...] for bowel perf treated conservatively -Treated at [facility] -On cipro/flagyl, will continue this # Disseminated histoplasmosis -Continue itraconazole twice daily -Patient to follow-up with a Dr. Hart in 3 months # Recent COVID-19 -4 more days of dexamethasone -Tested positive here at the end of February #Hx and mod pericardial effusion -Seen at [facility] and pt advised to f/u outpt -Will [...] Veras MD Charges/Coding Visit Charges Inpatient E&M: 01945 Init Hosp L2 03/26/23 1604 <Electronically signed by Laine Veras MD> Cosigner Signature (if applicable): CC: Dr. Claudine Durán MD; Dr. Laine Veras MD~ Signed [facility] Work Phone: History and physical note Author Laine Veras [facility] March 31, 2023 8:59pm Note Date/Time March 31, 2023 8:20pm [facility] Medical Records Department [address] [place] [address] H&P Exam - Hospitalist 03/31/232011 MR#: [id number] Acct: [id number] Name: HAYDEE BUSTAMANTE Rep #:[id number] : 1945 77 From: Laine Veras MD PCP: Dr. Claudine Durán MD Status:AD M IN Location: [facility] [id number] HPI - General General Date of Admission: 03/31/23 Date of Service: 03/31/23 Chief Complaint: BLE edema and weeping HPI Narrative HAYDEE BUSTAMANTE, is a 77-year-old female history of COPD, Severe . GERD. DVT and PEon Coumadin, histoplasmosis of the lung, RA who presented to [facility] ED 03/31/2023 with bilateral lower extremity edema. She was seen here 03/28/2023 with lower extremity edema. She was initially seen here 03/26/2023 for shortness of breath and inability to care for herself at home after a recent hospital stay at [facility] from which she was discharged [...] is unsure if she's taking her coumadin [facility] Medical History (Updated 03/31/23 @ [...] Q24H 03/19/23 [History Last Taken Unknown] vitamins A,C,P-pghr-pwtfxw 2,148 mcg-113 mg-45 mg-17.4 mg tablet (PreserVision [...] 90.8 H, Lymph % (Auto) 3.0 L, Door % (Auto) 5.0, Eos % (Auto) 0.1, [...] 19:30 EST Reading Location ID and State: [employer] [facility] [employer] / [employer] Tel , Service support , Chest X-Ray 03/31/23 18:32 IMPRESSION: No change from prior study. Electronically Signed: Michael Galarza MD at 19:29 EST Reading Location ID and State: [facility] [employer] / [employer] , Service support , Assessment & Plan Assessment/Plan (1) Cellulitis: [...] for bowel perf treated conservatively -Treated at [facility] -s/p cipro and flagyl, no present abd complaints # Disseminated histoplasmosis -Continue itraconazole twice daily -Patient to follow-up with a Dr. Hart in 3 months # Recent COVID-19 -Tested positive here end of February -No resp complaints #Hx COPD -Continue inhalers #Hx and mod pericardial effusion -Seen at [facility] and pt advised to f/u outpt -Will [...] documentation, 78Minutes Charges/Coding Visit Charges Inpatient E&M: 56158 Init Hosp L3 03/31/232058 <Electronically signed by Laine Veras MD> Cosigner Signature (if applicable): CC: Dr. Claudine Durán MD; Dr. Laine Veras MD~ Signed [facility] Work Phone: History and physical note Author Erasmo House [facility] Note Date/Time August 23, 2024 11:12 am [facility] Medical Records Department [address] [place] [address] H&P Exam - Hospitalist 08/23/24 1023 MR#: [id number] Acct: [id number] Name: HAYDEE BUSTAMANTE Rep #:[id number] : 1945 79 From: Erasmo Castañeda PCP: Dr. Claudine Durán MD Status:[facility]RERO Location: NM3 [id number] HPI - General General Date of Admission: [...] x-ray done in the ED were reviewed. [facility] Medical History Hypertension GERD (gastroesophageal reflux disease) [...] suppl ement 03/19/23 10/01/23 History tablet) vitamins A,C,L-olvb-azmtju 2,148 2 tab PO BID eye heal [...] Rx (Voltaren Arthritis Pain) #100 grams omega 2-htm-vaz-fish oil 1,200 mg 1 cap PO DAILY [...] (Auto) 82.3 H, Lymph % (Auto) 8.1L, Door % (Auto) 8.6, Eos % (Auto) 0.1, [...] distal radius with intra-articular extension. Reading Location: [facility] Brain CT 08/23/24 08:06 IMPRESSION: 1. Generalized brain atrophy. 2. Small vessel ischemic/degenerative changes. 3. No acute intracranial hemorrhage, midline shift or mass effect. If symptoms persist, further evaluation with MRI is recommended. Reading Location: [facility] Assessment & Plan Assessment/Plan (1) Closed fracture of distal end of left radius: (2) Closed head injury without concussion: PLAN: Plan This 72-year-old female was brought to ED when she fell down, mechanism unclear resulting into left wrist fracture. 1. Acute debility of ADL due to closed fracture of distal end of left radius/Colles' fracture: [facility] 3 views ofx-ray left wrist x-ray [...] shock if needed Total time spent in ozld-ju-pscz encounter in discussion of advanced directive 17 minutes. Laboratory Results 08/23/24 07:45: WBC 7.9, RBC 3.52 L, Hgb 11.3 L, Hct 33.9 L, MCV 96.3, MCH 32.1 H, MCHC 33.3, RDW Std Deviation 58.6 H, RDW Coeff of Catarino 17.0 H, Plt Count 182, MPV 10.9, Immature Gran % (Auto) 0.500, Neut % (Auto) 82.3 H, Lymph % (Auto) 8.1L, Door % (Auto) 8.6, Eos % (Auto) 0.1, [...] distal radius with intra-articular extension. Reading Location: [facility] Brain CT 08/23/24 08:06 IMPRESSION: 1. Generalized brain atrophy. 2. Small vessel ischemic/degenerative changes. 3. No acute intracranial hemorrhage, midline shift or mass effect. If symptoms persist, further evaluation with MRI is recommended. Reading Location: [facility] Charges/Coding Visit Charges Inpatient E&M: 04858 Init Hosp L3 Procedures Hospitalists Procedures: 81413 Advncd Care Plan 30 Min 08/23/24 1112 <Electronically signed by Erasmo House MD> Cosigner Signature (if applicable): CC: Dr. Claudine Durán MD; Dr. Erasmo House MD~ Signed [facility] Work Phone: Hospital Discharge instructions Additional [...] higher or systolic number then stop the medication.[facility] Work Phone: Hospital Discharge instructionsAdditional Instructions Your evaluation in the Emergency Department did not reveal any acute reason for admission. However, I want to emphasize that you may be early in the course of a disease process or illness even if it is not present. For this reason you should follow-up within 24 hours for reevaluation with either your primary care physician or if necessary back here in the Emergency Department. You should return to the Emergency Department immediately if your symptoms worsen or new symptoms develop.[facility] Work Phone: Reason for referral (narrative)* Outpatient Procedure (Routine) - Authorized Specialty Diagnoses / Procedures Referred By Contac t Referred To [facility] Diagnoses Aortic stenosis with bicuspid valve Essential hypertension Procedures ECHO ECHO TTHRC R-T 2D W/WOM-MODE COMPL SPEC&COLR D SiddharthWilliam, [address] [place] [address] [address] Referral ID Status Reason Start Date Expiration Date Visits Requested Visits Authorized [id number] Authorized Auto-Generat ed Referral 08/12/2021 08/12/2022 1 1 * Outpatient Procedure (Routine) - Closed Specialty Diagnoses / Procedures Referred By Divya t Referred To Contact [facility] Diagnoses Aortic stenosis with bicuspid valve Essential hypertension Procedures ECG COMPLETE ECG ROUTINE ECG W/LEAST 12 LDS W/I&R SiddharthWilliam [address] [place] [address] [place] [id number] Referral ID Status Reason Start Date Expiration Date V isits Requested Visits Authorized [id number] Closed Auto-Generate d Referral 08/12/2021 08/12/2022 1 1 [facility] for referral (narrative)* Diagnostic Procedure Only (Routine) - Closed Specialty Diagnoses / Procedures Referred By Divya t Referred To Contact XR IMAGING Diagnoses Ulcer of toe of left foot, limited to breakdown of skin (HCC) Hammer toe of left foot Procedures XR FOOT GENERAL 3V AP/LAT/OBL LEFT RADEX FOOT COMPLETE MINIMUM 3 VIEWS Chacho Louise [address] [place] [address] Xr Imaging Referral ID Status Reason Start Date Expiration Date V isits Requested Visits Authorized [id number] Closed Auto-Generate d Referral 10/18/2021 11/17/2022 1 1 [facility] for referral (narrative)* Diagnostic Procedure Only (Routine) - Closed Specialty Diagnoses / Procedures [facility]erred To Contact X[facility] Diagnoses Ulcer of toe of left foot, limited to breakdown of skin (HCC) Hammer toe of left foot Procedures XR FOOT GENERAL 3V AP/LAT/OBL LEFT RADEX FOOT COMPLETE MINIMUM 3 VIEWS Chacho Louise [address] [place] [address] Xr Imaging Referral ID Status Reason Start Date Expiration Date V isits Requested Visits Authorized [id number] Closed Auto-Generate d Referral 10/18/2021 11/17/2022 1 1 [facility] for referral (narrative)* Outpatient Procedure (Routine) - Authorized Specialty Diagnoses / Procedures [facility] Diagnoses Aortic stenosis with bicuspid valve Procedures ECHO ECHO TTHRC R-T 2D W/WOM-MODE COMPL SPEC&COLR D Rachelle Schulte PRINTED [employer]AR[employer] STRIPPER ETCHER.DIE PRESSER [address] [address] [facility] [place] [address] [place] [address] Referral ID Status Reason Start Date Expiration Date Visits Requested Visits Authorized [id number] Authorized Auto-Generat ed Referral 08/29/2022 08/29/2023 1 1 [facility] for referral (narrative)* Diagnostic Procedure Only (Routine) - Authorized Specialty Diagnoses / Procedures [facility] Referred To Contact [facility] Diagnoses Encounter for screening mammogram for breast cancer Procedures SABINO SCREENING W ALIZE SCREENING DIGITAL BREAST TOMOSYNTHESIS BI SCREENING MAMMOGRAPHY BI 2-VIEW BREAST INC Jimbo Egan, PRINTED CIRCUIT BOARDS STRIPPER ETCHER.[address] MAGIST[address] [place] [address] [facility] [address] [place] [address] Referral ID Status Reason Start Date Expiration Date Visits Requested Visits Authorized [id number] Authorized Auto-Generat ed Referral 10/27/2022 11/26/2023 1 1 * Diagnostic Procedure Only (Routine) - Pending Review Specialty Diagnoses / Procedures Referred By Divya reis Referred To Contact [facility] Diagnoses Encounter for screening mammogram for breast cancer Procedures SABINO SCREENING SCREENING MAMMOGRAPHY BI 2-VIEW BREAST INC CAD Jimbo Swanson APRN.[address] MAGISTRATE [address] [place] [address] [facility] [address] [place] [address] Referral ID Status Reason Start Date Expiration Date Visits Requested Visits Authorized [id number] Pending Review Auto-Generat ed Referral 10/27/2022 11/26/2023 1 1 [facility] for referral (narrative)* Diagnostic Procedure Only (Routine) - Closed Specialty Diagnoses / Procedures Referred By Divya reis Referred To Contact [facility] Diagnoses Encounter for screening mammogram for breast cancer Procedures SABINO SCREENING W ALIZE SCREENING DIGITAL BREAST TOMOSYNTHESIS BI SCREENING MAMMOGRAPHY BI 2-VIEW BREAST INC [facility] Jimbo Swanson APRN.[address] MAGISTRATE [address] [place] [address] [facility] [address] [place] [address] Referral ID Status Reason Start Date Expiration Date V isits Requested Visits Authorized [id number] Closed Auto-Generate d Referral 10/27/2022 11/26/2023 1 1 [facility] for referral (narrative)* Outpatient Procedure (Urgent) - Authorized Specialty Diagnoses / Procedures Referred By Divya reis Referred To [facility] Diagnoses Acute pain of right knee Pain and swelling of right lower leg Procedures US LEG VEIN DVT UNL VAS LAB DUP-SCAN XTR VEINS UNILATERAL/LIMITED STUDY Jimbo Swanson APRN.[address] MAGISTRATE [address] [place] [address] [facility] [address] [place] [address] Referral ID Status Reason Start Date Expiration Date Visits Requested Visits Authorized [id number] Authorized Auto-Generat ed Referral 07/10/2023 07/09/2024 1 1 [facility] for referral (narrative)* Diagnostic Procedure Only (Routine) - Pending Review Specialty Diagnoses / Procedures Referred By Contac t Referred To Contact XR IMAGING Diagnoses Right knee pain, unspecified chronicity Procedures XR LEG FRONTAL HIP TO ANKLE MECHANICAL AXIS BONE LENGTH STUDIES London Short PA-C [address] [place] [address] [place] [id number] Referral ID Status Reason Start Date Expiration Date Visits Requested Visits Authorized [id number] Pending Review Auto-Generat ed Referral 07/18/2023 08/15/2024 1 1 * Diagnostic Procedure Only (Routine) - Pending Review Specialty Diagnoses / Procedures Referred By Contac t Referred To Contact XR IMAGING Diagnoses Right knee pain, unspecified chronicity Procedures XR KNEE GENERAL 4V AP BOTH/PA BOTH/LAT/MERC RIGHT RADIOLOGIC EXAM KNEE COMPLETE 4/MORE VIEWS London Short PA-C [address] [place] [address] [place] [id number] Referral ID Status Reason Start Date Expiration Date Visits Requested Visits Authorized [id number] Pending Review Auto-Generat ed Referral 07/18/2023 08/15/2024 1 1 [facility] for referral (narrative)* Outpatient Procedure (Routine) - Pending Review Specialty Diagnoses / Procedures Referred By Contac t Referred To [facility] Diagnoses Nonrheumatic aortic valve stenosis Mitral valve stenosis, non-rheumatic Essential hypertension Pericardial effusion (noninflammatory) Procedures ECHO LIMITED ECHO TRANSTHORAC R-T 2D W/WO M-MODE REC COMP William Messina DO [address] [place] [address] [address] Referral ID Status Reason Start Date Expiration Date Visits Requested Visits Authorized [id number] Pending Review Auto-Generat ed Referral 08/27/2023 08/26/2024 1 1 [facility] for referral (narrative)* Outpatient Procedure (Routine) - Authorized Specialty Diagnoses / Procedures Referred By Contac t Referred To [facility] Diagnoses Pericardial effusion Procedures ECHO LIMITED ECHO TRANSTHORAC R-T 2D W/WO M-MODE REC COMP Bibi Alegria [employer]AR[employer]IP[employer] ETCHER.DIE PRESSER [address] [place] [address] [address] Referral ID Status Reason Start Date Expiration Date Visits Requested Visits Authorized [id number] Authorized Auto-Generat ed Referral 10/17/2024 1 1 [facility] for referral (narrative)* Outpatient Procedure (Routine) - New Request Specialty Diagnoses / Procedures Referred By Contac t Referred To [facility] Diagnoses Nonrheumatic aortic valve stenosis Aortic valve disorder Procedures ECG COMPLETE ECG ROUTINE ECG W/LEAST 12 LDS W/I&R Monica Aguila APRN.DIE PRESSER [address] [place] [address] [facility] [address] [place] [address] Referral ID Status Reason Start Date Expiration Date Visits Requested Visits Authorized [id number] New Request Auto-Generat ed Referral 4 01/07/2025 1 1 * Outpatient Procedure (Routine) - New Request Specialty Diagnoses / Procedures Referred By Contac t Referred To Contact [facility] Diagnoses Nonrheumatic aortic valve stenosis Aortic valve disorder Procedures ECHO ECHO TTHRC R-T 2D W/WOM-MODE COMPL SPEC&COLR D Monica Aguila APRN.DIE PRESSER [address] [place] [address] [facility] [address] [place] [address] Referral ID Status Reason Start Date Expiration Date Visits Requested Visits Authorized [id number] New Request Auto-Generat ed Referral 4 01/07/2025 1 1 * Diagnostic Procedure Only (Routine) - New Request Specialty Diagnoses / Procedures Referred By Divya reis Referred To Contact [facility] Diagnoses Nonrheumatic aortic valve stenosis Procedures NM SPECT/CT CARDIAC AMYLOID RP LOCLZJ MARY SPECT W/CT 1 AREA 1 DAY IMAGING Monica Aguila APRN.DIE PRESSER [address] [place] [phone] [facility] [address] [place] [address] Referral ID Status Reason Start Date Expiration Date Visits Requested Visits Authorized [id number] New Request Auto-Generat ed Referral 4 02/06/2025 1 1 * MRI/CT (Routine) - New Request Specialty Diagnoses / Procedures Referred By Divya reis Referred To Contact CT IMAGING Diagnoses Nonrheumatic aortic valve stenosis Encounter for preprocedural cardiovascular examination Procedures CTA CHEST/ABD/PEL (GATED) W IVCON CT ANGIOGRAPHY CHEST W/CONTRAST/NONCONTRAST CT ANGIO ABD&PLVIS CNTRST MTRL W/WO CNTRST Monica Zavala APRN.DIE PRESSER [address] [place] [address] Ct Imaging [id number] Referral ID Status Reason Start Date Expiration Date Visits Requested Visits Authorized [id number] New Request Auto-Generat ed Referral 4 02/06/2025 1 1 * Outpatient Procedure (Routine) - New Request Specialty Diagnoses / Procedures Referred By Divya reis Referred To Contact [facility] Diagnoses Nonrheumatic aortic valve stenosis Procedures LUNG DIFFUSION CAPACITY (DLCO) DIFFUSING CAPACITY Monica Aguila APRN.CNP [address] [place] [address] [place] [address] Referral ID Status Reason Start Date Expiration Date Visits Requested Visits Authorized [id number] New Request Auto-Generat ed Referral 4 02/06/2025 1 1 * Outpatient Procedure (Routine) - New Request Specialty Diagnoses / Procedures Referred By Divya reis Referred To Contact [facility] Diagnoses Nonrheumatic aortic valve stenosis Procedures SPIROMETRY BASELINE ONLY SPMTRY W/VC EXPIRATORY MILTON W/WO MXML VOL VNTJ Monica Aguila APRN.CNP [address] [place] [address] [place] [address] Referral ID Status Reason Start Date Expiration Date Visits Requested Visits Authorized [id number] New Request Auto-Generat ed Referral 4 02/06/2025 1 1 [facility] for referral (narrative)* Diagnostic Procedure Only (Routine) - Closed Specialty Diagnoses / Procedures Referred By Divya reis Referred To Contact [facility] Diagnoses Nonrheumatic aortic valve stenosis Procedures NM SPECT/CT CARDIAC AMYLOID RP LOCLZJ MARY SPECT W/CT 1 AREA 1 DAY IMAGING Monica Aguila APRN.DIE PRESSER [address] [place] [phone] [facility] [address] [place] [phone] Referral ID Status Reason Start Date Expiration Date V isits Requested Visits Authorized [id number] Closed Auto-Generate d Referral 01/08/2024 02/06/2025 1 1 [facility] for referral (narrative)* Transition of Care (Routine) - Authorized Specialty Diagnoses / Procedures Referred By Contac t Referred To Contact [facility] Procedures CARDIOVASCULAR MEDICINE OP FOLLOW UP APPT ORDER Monica Aguila APRN.CNP [address] [place] [address] Phone: tel: fax: [facility] [place] [phone] Referral ID Status Reason Start Date Expiration Date Visits Requested Visits Authorized [id number] Authorized PCP Requested Referral 04/30/2024 04/30/2025 1 1 [facility] for referral (narrative)* Transition of Care (Routine) - Authorized Specialty Diagnoses / Procedures Referred By Contac t Referred To Contact [facility] Procedures CARDIOVASCULAR MEDICINE OP [place]LLOW [place] [address] [place] [address] Phone: tel: [facility] [place] [phone] Referral ID Status Reason Start Date Expiration Date Visits Requested Visits Authorized [id number] Authorized PCP Requested Referral 05/05/2024 05/05/2025 1 1 T [facility] for referral (narrative)No reason for referral information [facility] Work Phone: [facility] (narrative)* Transition of Care (Routine) - Authorized Specialty Diagnoses / Procedures Referred By Contac t Referred To Contact [facility] [place] Procedures CARDIOVASCULAR MEDICINE OP FOLLOW UP APPT ORDER Brissa Chester, CONNIE.DIE PRESSER [address] [place] [address] Phone: tel: fax: [facility] [address] [place] [address] Referral ID Status Reason Start Date Expiration Date Visits Requested Visits Authorized [id number] Authorized PCP Requested Referral 07/22/2024 07/22/2025 1 1 [facility] for visit Narrative* Diagnostic Procedure Only (Routine) - Closed Specialty Diagnoses / Procedures Referred By Divya t Referred To Contact XR IMAGING Diagnoses Ulcer of toe of left foot, limited to breakdown of skin (HCC) Hammer toe of left foot Procedures XR FOOT GENERAL 3V AP/LAT/OBL LEFT RADEX FOOT COMPLETE MINIMUM 3 VIEWS Chacho Louise[address] [place] [address] Xr Imaging Referral ID Status Reason Start Date Expiration Date V isits Requested Visits Authorized [id number] Closed Auto-Generate d Referral 10/18/2021 11/17/2022 1 1 [facility] for visit Narrative* Diagnostic Procedure Only (Routine) - Closed Specialty Diagnoses / Procedures Referred By Divya t Referred To Contact BR IMAGING Diagnoses Encounter for screening mammogram for breast cancer Procedures SABINO SCREENING W ALIZE SCREENING DIGITAL BREAST TOMOSYNTHESIS BI SCREENING MAMMOGRAPHY BI 2-VIEW BREAST INC Jimbo Egan, PRINTED CIRCUIT BOARDS STRIPPER ETCHER.[address]IC[address] MAGISTRATE [address] [place] [address] Br Imaging [address] [place] [address] Referral ID Status Reason Start Date Expiration Date V isits Requested Visits Authorized [id number] Closed Auto-Generate d Referral 10/27/2022 11/26/2023 1 1 [facility] for visit Narrative* Diagnostic Procedure Only (Urgent) - Closed Specialty Diagnoses / Procedures Referred By Francoisac t Referred To Contact XR IMAGING Diagnoses Hip pain, acute, left Procedures XR HIP GENERAL 3V PELV/AP/LAT LEFT RADEX HIP UNILATERAL WITH PELVIS 2-3 VIEWS Ernie Belcher, PRINTED CIRCUIT BOARDS STRIPPER ETCHER.DIE PRESSER [address] [place] [address] [place] [id number] Referral ID Status Reason Start Date Expiration Date V isits Requested Visits Authorized [id number] Closed Auto-Generate d Referral 12/31/2021 01/30/2023 1 1 [facility] for visit Narrative* Diagnostic Procedure Only (Routine) - Closed Specialty Diagnoses / Procedures Referred By Francoisac t Referred To Contact MOLECULAR & FUNCTIONAL IMAGING Diagnoses Nonrheumatic aortic valve stenosis Procedures NM SPECT/CT CARDIAC AMYLOID RP LOCLZJ MARY SPECT W/CT 1 AREA 1 DAY IMAGING Monica Aguila, PRINTED CIRCUIT BOARDS STRIPPER ETCHER.DIE PRESSER [address] [place] [address] Molecular [facility] Functional Imaging [address] [place] [address] Referral ID Status Reason Start Date Expiration Date V isits Requested Visits Authorized [id number] Closed Auto-Generate d Referral 01/08/2024 02/06/2025 1 1 [facility] Summary Purpose Family History No Family History Records FoundNo Family History Records FoundNo Family History Records FoundNo Family History Records FoundNo Family History Records FoundNo Family History Records Found Advance Directives No Advanced Directives Records FoundDocuments on File Type Date Recorded Patient Body Bumper Expl anation Advance Directive(s) 02/25/2018 1:19 PM Date Activated Date Inactivated Comments 03/22/2023 3:19 PM 03/25/2023 9:30 PM Question Answer Comments Full Code Order Discussed With: PatientSurrogate Decision Maker Surrogate Decision Maker Name: Milena Araiza and José Miguel rosangela Chanmarily (Friends) Date Activated Date Inactivated Comments 03/02/2018 6:22 PM 03/03/2018 4:33 PM Question Answer Comments Full Code Order Discussed With: Patient Latest Code Status on File Code Status Date Activated Date Inactivated Comments Full Code 03/02/2018 6:22 PM 03/03/2018 4:33 PM Full Code Order Discussed With: Patient Documents on File Type Date Recorded Patient Body Bumper Expl anation Advance Directive(s) 03/24/2019 12:16 PM Advance Directive(s) 03/02/2018 11:28 AM Advance Directive(s) 02/25/2018 1:11 PM Advance Directive(s) 02/25/2018 1:19 PM Advance Directive(s) 01/25/2018 9:15 AM Advance Directive(s) 07/30/2017 2:22 PM Documents on File Type Date Recorded Patient Body Bumper Expl anation Advance Directive(s) 03/24/2019 12:16 PM Advance Directive(s) 03/02/2018 11:28 AM Advance Directive(s) 02/25/2018 1:11 PM Advance Directive(s) 02/25/2018 1:19 PM Advance Directive(s) 01/25/2018 9:15 AM Advance Directive(s) 07/30/2017 2:22 PM Latest Code Status on File Code Status Date Activated Date Inactivated Comments Full Code 03/02/2018 6:22 PM 03/03/2018 4:33 PM Documents on File Type Date Recorded Patient Body Bumper Expl anation Advance Directive(s) 02/25/2018 1:19 PM [...] Will No March 19 10:06am Power of Electromechanical Equipment Tester No March 19, 2023 10:06am Latest Code [...] Decision Maker Surrogate Decision Maker Name: Milena Ryan mckeon and Padmini Chang (Friends) Advance Directive Response Recorded Date/ Time Living Will No March 28 4:31pm Power of Electromechanical Equipment Tester No March 28, 2023 4:31pm Name of Medical Power of Electromechanical Equipment Tester diallo araiza March 26, 2023 5:06pm Advance Directive Response Recorded Date/ Time Living Will No March 31 5:01pm Power of Electromechanical Equipment Tester No March 31, 2023 5:01pm Name of Medical Power of Electromechanical Equipment Tester diallo araiza March 26, 2023 5:06pm Advance Directive Response Recorded Date/ Time Name of Medical Power of Electromechanical Equipment Tester Milena Elainediandra and Padmini Chang March 31, 2023 9:38pm Living Will Yes April 04 4:12pm Power of Electromechanical Equipment Tester Yes April 04, 2023 4:12pm Name of Medical Power of Electromechanical Equipment Tester diallo araiza March 26, 2023 5:06pm Advance Directive Response Recorded Date/ Time Name of Medical Power of Electromechanical Equipment Tester Milena Araiza and Padmini Chang March 31, 2023 9:38pm Name of Medical Power of Electromechanical Equipment Tester diallo araiza March 26, 2023 5:06pm Name of Medical Power of Electromechanical Equipment Tester Suzie Araiza (Milena), friend April 09, 2023 2:27pm Living Will Yes April 09 024 2:27pm Power of Electromechanical Equipment Tester Yes April 09, 2023 2:27pm Advance Directive Response Recorded Date/ Time Name of Medical Power of Electromechanical Equipment Tester Milena Henrydiandra and Padmini Chang March 31, 2023 10:38pm Name of Medical Power of Electromechanical Equipment Tester diallo araiza March 26, 2023 6:06pm Name of Medical Power of Electromechanical Equipment Tester Suzie Elainediandra (Milena), friend April 09, 2023 3:27pm Living Will Yes April 09 024 3:27pm Power of Electromechanical Equipment Tester Yes February 19th, 2024 3:27pm Date Activated Date Inactivated Comments 03/22/2023 [...] Do you have a Healthcare Power of Electromechanical Equipment Tester? Yes May 28, 2024 8:37am Advance Directive Response Recorded Date/ Time Advance Directives on File Yes May 28, 2024 8:37am Living Will Yes May 28, 2024 8:37am Do you have a Healthcare Power of Electromechanical Equipment Tester? Yes May 28, 2024 8:37am Do you have a Healthcare Power of Electromechanical Equipment Tester? Yes August 23, 2024 11:43am Name of Medical Power of Electromechanical Equipment Tester Milena Araiza August 23, 2024 7:33am Advance Directive Response Recorded Date/ Time Do you have a Healthcare Power of Electromechanical Equipment Tester? Yes August 23, 2024 11:43am Name of Medical Power of Electromechanical Equipment Tester Milena Araiza August 23, 2024 7:33am Advance Directive Response Recorded Date/ Time Do you have a Healthcare Power of Electromechanical Equipment Tester? Yes August 23, 2024 11:43am Name of Medical Power of Electromechanical Equipment Tester Milena Araiza August 23, 2024 7:33am Do you have a Healthcare Power of Electromechanical Equipment Tester? Yes October 19, 2024 12:42am Reason for Referral Specialty Diagnoses / Procedures Referred By Divya t Referred To Contact CT IMAGING Diagnoses Lung nodules Procedures CT CHEST WO IVCON DIAGNOSTIC COMPUTED TOMOGRAPHY THORAX W/O MARIA LUISAT Florence Collins MD [address] [place] [place] [address] Ct Imaging Referral ID Status Reason Start Date Expiration Date Visits Requested Visits Authorized [id number] Authorized Auto-Generat ed Referral 2 12/29/2022 1 1 Specialty Diagnoses / Procedures Referred By Divya t Referred To Contact CT IMAGING Diagnoses Lung nodules Bronchiectasis without complication (HCC) Procedures CT CHEST WO IVCON DIAGNOSTIC COMPUTED TOMOGRAPHY THORAX W/O Florence Duncan MD [address] [place] [address] Ct Imaging Referral ID Status Reason Start Date Expiration Date Visits Requested Visits Authorized [id number] Authorized Auto-Generat ed Referral 01/23/2023 08/23/2023 1 1 Specialty Diagnoses / Procedures Referred By Contac t Referred To Contact CT IMAGING Diagnoses Lung nodules Procedures CT CHEST WO IVCON DIAGNOSTIC COMPUTED TOMOGRAPHY THORAX W/O Florence Duncan MD [address] [place] [address] [place] [address] Referral ID Status Reason Start Date Expiration Date V isits Requested Visits Authorized [id number] Closed Auto-Generate d Referral 11/29/2021 12/29/2022 1 1 Specialty Diagnoses / Procedures Referred By Contac t Referred To Contact Claudine Durán MD [address] [place] [address] Referral ID Status Reason Start Date Expiration Date Visits Re quested Visits Authorized [id number] Closed 1 1 Specialty Diagnoses / Procedures Referred By Contac t Referred To Contact Orthopedics Diagnoses Rheumatoid arthritis involving multiple sites with positive rheumatoid factor (HCC) Pain and swelling of right knee Procedures CONSULT TO ORTHOPAEDICS OFFICE/OUTPATIENT [facility] 60 MINUTES Jimbo Swanson, PRINTED CIRCUIT BOARDS STRIPPER ETCHER.[address]IC[address] MAGISTRATE [address] [place] [address] Referral ID Status Reason Start Date Expiration Date Visits Requested Visits Authorized [id number] Authorized PCP Requested Referral 07/13/2023 07/12/2024 1 1 Specialty Diagnoses / Procedures Referred By Contac t Referred To Contact CT IMAGING Diagnoses Disseminated histoplasmosis Procedures CT CHEST WO IVCON DIAGNOSTIC COMPUTED TOMOGRAPHY THORAX W/O CNTRST Geno Hart MD [address] [place] [address] [place] [address] Referral ID Status Reason Start Date Expiration Date V isits Requested Visits Authorized [id number] Closed Auto-Generate d Referral 08/30/2023 02/19/2024 1 1 Specialty Diagnoses / Procedures Referred By Contac t Referred To Contact Cardiology Diagnoses Aortic valve stenosis, etiology of cardiac valve disease unspecified Mitral valve stenosis, unspecified etiology Pericardial effusion Procedures CONSULT TO CARDIOLOGY OFFICE/OUTPATIENT [facility] 60 MINUTES Jimbo Swanson, PRINTED CIRCUIT BOARDS STRIPPER ETCHER.[address] MAGISTRATE [address] [place] [address] Referral ID Status Reason Start Date Expiration Date Visits Requested Visits Authorized [id number] Authorized PCP Requested Referral 10/11/2023 10/10/2024 1 1 Specialty Diagnoses / Procedures Referred By Contac t Referred To Contact [facility] Diagnoses Nonrheumatic aortic valve stenosis Nonrheumatic mitral valve stenosis Pericardial effusion Rheumatoid arthritis with positive rheumatoid factor, involving unspecified site (HCC) Histoplasmosis Procedures CARDIOVASCULAR MEDICINE OP FOLLOW UP APPT ORDER Lili Roche MD [address] [place] [address] [facility] [address] [address] Referral ID Status Reason Start Date Expiration Date Visits Requested Visits Authorized [id number] Ref Not Required PCP Requested Referral 07/07/2024 01/07/2025 1 1 Specialty Diagnoses / Procedures Referred By Contac t Referred To Contact [facility] Procedures CARDIOVASCULAR MEDICINE OP [place]LLOW [place] [address] [place] [address] [facility] [address] [place] [address] Referral ID Status Reason Start Date Expiration Date Visits Requested Visits Authorized [id number] Authorized PCP Requested Referral 03/21/2024 03/21/2025 1 1 Specialty Diagnoses / Procedures Referred By Contac t Referred To Contact [facility] Procedures CARDIOVASCULAR MEDICINE OP FOLLOW UP APPT ORDER Monica Aguila, PRINTED CIRCUIT BOARDS STRIPPER ETCHER.DIE PRESSER [address] [place] [address] [facility] [address] [place] [address] Referral ID Status Reason Start Date Expiration Date Visits Requested Visits Authorized [id number] Authorized PCP Requested Referral 03/25/2024 03/25/2025 1 [...] AND EXTREMITY SWELLING RIGHT LEG SWELLING LABWORK DETENTION LAB WORK LABWORK Reason for Visit Histoplasmosis [...] AND EXTREMITY SWELLING RIGHT LEG SWELLING LABWORK DETENTION LAB WORK LABWORK LABWORK DETENTION LAB WORK Reason for Visit Histoplasmosis History [...] AND EXTREMITY SWELLING RIGHT LEG SWELLING LABWORK DETENTION LAB WORK LABWORK LABWORK LABWORK DETENTION LAB WORK Reason for Visit Histoplasmosis History [...] AND EXTREMITY SWELLING RIGHT LEG SWELLING LABWORK DETENTION LAB WORK LABWORK LABWORK LABWORK DETENTION LAB WORK LABWORK Reason for Visit Histoplasmosis [...] AND EXTREMITY SWELLING RIGHT LEG SWELLING LABWORK DETENTION LAB WORK LABWORK LABWORK LABWORK DETENTION LAB WORK LABWORK DETENTION LAB WORK Reason for Visit Histoplasmosis History [...] LEG SWELLING ADMISSION EXAM LABWORK ADMISSION EXAM DETENTION LAB WORK LABWORK LABWORK LABWORK DETENTION LAB WORK LABWORK LABWORK LABWORK LABWORK DETENTION LAB WORK LABWORK Reason for Visit Histoplasmosis [...] 4:54p m fallAugust 27, 2024 11:58 am Reason for Visit [...] 0am Chief Complaint Admit Date s/p TAVR July 18, 2024 9:15a m [...] 18, 2024 5:00 am LAB WORK September 22, 2024 5:0 0am LAB WORK September 25, 2024 4:0 0am LABWORK September 29, 2024 5: 00am DETENTION LAB WORK October 07, 2024 4:00am FALL October 19, 2024 12 :40am Reason for Visit Admit Date Closed fracture of distal end of left ra dius August 23, 2024 10:24am Closed head injury without concussion Ju 2024 10:24am Declining functional status August 23 10:24am Chief Complaint Admit Date s/p TAVR July 18, 2024 9:15a m [...] 18, 2024 5:00 am LAB WORK September 22, 2024 5:0 0am LAB WORK September 25, 2024 4:0 0am LABWORK September 29, 2024 5: 00am new concern September 30, 2024 9: 26pm DETENTION LAB WORK October 07, 2024 4:00am FALL October 19, 2024 12 :40am Chief Complaint Admit Date s/p TAVR July 18, 2024 9:15a m [...] 18, 2024 5:00 am LAB WORK September 22, 2024 5:0 0am LAB WORK September 25, 2024 4:0 0am LABWORK September 29, 2024 5: 00am new concern September 30, 2024 9: 26pm DETENTION LAB WORK October 02, 2024 5:00am DETENTION LAB WORK October 07, 2024 4:00am LABWORK October 09, 2024 5: 00am New Concern October 14, 2024 1: 55pm FALL October 19, 2024 12 :40am Additional Source Comments INFORMATION SOURCE (unrecogn ized section and content) DATE CREATED AUTHOR 08/15/2017 [facility] DATE CREATED AUTHOR AUTHOR'S ORGANIZ ATION 03/10/2018 [facility] DATE CREATED AUTHOR AUTHOR'S ORGANIZ ATION 09/04/2023 [facility] DATE CREATED AUTHOR AUTHOR'S ORGANIZ ATION 01/07/2024 [facility] DATE CREATED AUTHOR AUTHOR'S ORGANIZ ATION 10/26/2024 [facility] DATE CREATED AUTHOR AUTHOR'S ORGANIZ ATION 11/07/2024 [facility] Source Comments (unrecognize d section and content) In the event this informatio n is protected by the Federal Confidentiality of Alcohol and Drug Abuse Patient Records regulations: The Federal rules restrict any use of the information to criminally investigate or prosecute any alcohol or drug abuse patient.[facility] the event this information is protected by the Federal Confidentiality of Alcohol and Drug Abuse Patient Records regulations: The Federal rules restrict any use of the information to criminally investigate or prosecute any alcohol or drug abuse patient.[facility] the event this information is protected by the Federal Confidentiality of Alcohol and Drug Abuse Patient Records regulations: The Federal rules restrict any use of the information to criminally investigate or prosecute any alcohol or drug abuse patient.[facility] the event this information is protected by the Federal Confidentiality of Alcohol and Drug Abuse Patient Records regulations: The Federal rules restrict any use of the information to criminally investigate or prosecute any alcohol or drug abuse patient.[facility] the event this information is protected by the Federal Confidentiality of Alcohol and Drug Abuse Patient Records regulations: The Federal rules restrict any use of the information to criminally investigate or prosecute any alcohol or drug abuse patient.[facility] the event this information is protected by the Federal Confidentiality of Alcohol and Drug Abuse Patient Records regulations: The Federal rules restrict any use of the information to criminally investigate or prosecute any alcohol or drug abuse patient.[facility] the event this information is protected by the Federal Confidentiality of Alcohol and Drug Abuse Patient Records regulations: The Federal rules restrict any use of the information to criminally investigate or prosecute any alcohol or drug abuse patient.[facility] the event this information is protected by the Federal Confidentiality of Alcohol and Drug Abuse Patient Records regulations: The Federal rules restrict any use of the information to criminally investigate or prosecute any alcohol or drug abuse patient.[facility] the event this information is protected by the Federal Confidentiality of Alcohol and Drug Abuse Patient Records regulations: The Federal rules restrict any use of the information to criminally investigate or prosecute any alcohol or drug abuse patient.[facility] the event this information is protected by the Federal Confidentiality of Alcohol and Drug Abuse Patient Records regulations: The Federal rules restrict any use of the information to criminally investigate or prosecute any alcohol or drug abuse patient.[facility] the event this information is protected by the Federal Confidentiality of Alcohol and Drug Abuse Patient Records regulations: The Federal rules restrict any use of the information to criminally investigate or prosecute any alcohol or drug abuse patient.[facility] the event this information is protected by the Federal Confidentiality of Alcohol and Drug Abuse Patient Records regulations: The Federal rules restrict any use of the information to criminally investigate or prosecute any alcohol or drug abuse patient.[facility] the event this information is protected by the Federal Confidentiality of Alcohol and Drug Abuse Patient Records regulations: The Federal rules restrict any use of the information to criminally investigate or prosecute any alcohol or drug abuse patient.[facility] Hospital[facility] the event this information is protected by the Federal Confidentiality of Alcohol and Drug Abuse Patient Records regulations: The Federal rules restrict any use of the information to criminally investigate or prosecute any alcohol or drug abuse patient.[facility] the event this information is protected by the Federal Confidentiality of Alcohol and Drug Abuse Patient Records regulations: The Federal rules restrict any use of the information to criminally investigate or prosecute any alcohol or drug abuse patient.[facility] Hospital[facility] the event this information is protected by the Federal Confidentiality of Alcohol and Drug Abuse Patient Records regulations: The Federal rules restrict any use of the information to criminally investigate or prosecute any alcohol or drug abuse patient.[facility] Hospital[facility] the event this information is protected by the Federal Confidentiality of Alcohol and Drug Abuse Patient Records regulations: The Federal rules restrict any use of the information to criminally investigate or prosecute any alcohol or drug abuse patient.[facility] Hospital[facility] the event this information is protected by the Federal Confidentiality of Alcohol and Drug Abuse Patient Records regulations: The Federal rules restrict any use of the information to criminally investigate or prosecute any alcohol or drug abuse patient.[facility] Hospital[facility] the event this information is protected by the Federal Confidentiality of Alcohol and Drug Abuse Patient Records regulations: The Federal rules restrict any use of the information to criminally investigate or prosecute any alcohol or drug abuse patient.[facility] Hospital[facility] the event this information is protected by the Federal Confidentiality of Alcohol and Drug Abuse Patient Records regulations: The Federal rules restrict any use of the information to criminally investigate or prosecute any alcohol or drug abuse patient.[facility] the event this information is protected by the Federal Confidentiality of Alcohol and Drug Abuse Patient Records regulations: The Federal rules restrict any use of the information to criminally investigate or prosecute any alcohol or drug abuse patient.[facility] Hospital[facility] the event this information is protected by the Federal Confidentiality of Alcohol and Drug Abuse Patient Records regulations: The Federal rules restrict any use of the information to criminally investigate or prosecute any alcohol or drug abuse patient.[facility] Hospital[facility] the event this information is protected by the Federal Confidentiality of Alcohol and Drug Abuse Patient Records regulations: The Federal rules restrict any use of the information to criminally investigate or prosecute any alcohol or drug abuse patient.[facility] Hospital[facility] the event this information is protected by the Federal Confidentiality of Alcohol and Drug Abuse Patient Records regulations: The Federal rules restrict any use of the information to criminally investigate or prosecute any alcohol or drug abuse patient.[facility] Hospital[facility] the event this information is protected by the Federal Confidentiality of Alcohol and Drug Abuse Patient Records regulations: The Federal rules restrict any use of the information to criminally investigate or prosecute any alcohol or drug abuse patient.[facility] Hospital[facility] the event this information is protected by the Federal Confidentiality of Alcohol and Drug Abuse Patient Records regulations: The Federal rules restrict any use of the information to criminally investigate or prosecute any alcohol or drug abuse patient.[facility] Hospital[facility] the event this information is protected by the Federal Confidentiality of Alcohol and Drug Abuse Patient Records regulations: The Federal rules restrict any use of the information to criminally investigate or prosecute any alcohol or drug abuse patient.[facility] HospitalIn the event this information is protected by the Federal Confidentiality of Alcohol and Drug Abuse Patient Records regulations: The Federal rules restrict any use of the information to criminally investigate or prosecute any alcohol or drug abuse patient.[facility] HospitalIn the event this information is protected by the Federal Confidentiality of Alcohol and Drug Abuse Patient Records regulations: The Federal rules restrict any use of the information to criminally investigate or prosecute any alcohol or drug abuse patient.[facility] HospitalIn the event this information is protected by the Federal Confidentiality of Alcohol and Drug Abuse Patient Records regulations: The Federal rules restrict any use of the information to criminally investigate or prosecute any alcohol or drug abuse patient.[facility] HospitalIn the event this information is protected by the Federal Confidentiality of Alcohol and Drug Abuse Patient Records regulations: The Federal rules restrict any use of the information to criminally investigate or prosecute any alcohol or drug abuse patient.[facility] HospitalIn the event this information is protected by the Federal Confidentiality of Alcohol and Drug Abuse Patient Records regulations: The Federal rules restrict any use of the information to criminally investigate or prosecute any alcohol or drug abuse patient.[facility] HospitalIn the event this information is protected by the Federal Confidentiality of Alcohol and Drug Abuse Patient Records regulations: The Federal rules restrict any use of the information to criminally investigate or prosecute any alcohol or drug abuse patient.[facility] [facility]In the event this information is protected by the Federal Confidentiality of Alcohol and Drug Abuse Patient Records regulations: The Federal rules restrict any use of the information to criminally investigate or prosecute any alcohol or drug abuse patient.[facility] HospitalIn the event this information is protected by the Federal Confidentiality of Alcohol and Drug Abuse Patient Records regulations: The Federal rules restrict any use of the information to criminally investigate or prosecute any alcohol or drug abuse patient.[facility] HospitalIn the event this information is protected by the Federal Confidentiality of Alcohol and Drug Abuse Patient Records regulations: The Federal rules restrict any use of the information to criminally investigate or prosecute any alcohol or drug abuse patient.[facility] HospitalIn the event this information is protected by the Federal Confidentiality of Alcohol and Drug Abuse Patient Records regulations: The Federal rules restrict any use of the information to criminally investigate or prosecute any alcohol or drug abuse patient.[facility] HospitalIn the event this information is protected by the Federal Confidentiality of Alcohol and Drug Abuse Patient Records regulations: The Federal rules restrict any use of the information to criminally investigate or prosecute any alcohol or drug abuse patient.[facility] HospitalIn the event this information is protected by the Federal Confidentiality of Alcohol and Drug Abuse Patient Records regulations: The Federal rules restrict any use of the information to criminally investigate or prosecute any alcohol or drug abuse patient.[facility] HospitalIn the event this information is protected by the Federal Confidentiality of Alcohol and Drug Abuse Patient Records regulations: The Federal rules restrict any use of the information to criminally investigate or prosecute any alcohol or drug abuse patient.[facility] HospitalIn the event this information is protected by the Federal Confidentiality of Alcohol and Drug Abuse Patient Records regulations: The Federal rules restrict any use of the information to criminally investigate or prosecute any alcohol or drug abuse patient.[facility] HospitalIn the event this information is protected by the Federal Confidentiality of Alcohol and Drug Abuse Patient Records regulations: The Federal rules restrict any use of the information to criminally investigate or prosecute any alcohol or drug abuse patient.[facility] HospitalIn the event this information is protected by the Federal Confidentiality of Alcohol and Drug Abuse Patient Records regulations: The Federal rules restrict any use of the information to criminally investigate or prosecute any alcohol or drug abuse patient.[facility] HospitalIn the event this information is protected by the Federal Confidentiality of Alcohol and Drug Abuse Patient Records regulations: The Federal rules restrict any use of the information to criminally investigate or prosecute any alcohol or drug abuse patient.[facility] HospitalIn the event this information is protected by the Federal Confidentiality of Alcohol and Drug Abuse Patient Records regulations: The Federal rules restrict any use of the information to criminally investigate or prosecute any alcohol or drug abuse patient.[facility] HospitalIn the event this information is protected by the Federal Confidentiality of Alcohol and Drug Abuse Patient Records regulations: The Federal rules restrict any use of the information to criminally investigate or prosecute any alcohol or drug abuse patient.[facility] HospitalIn the event this information is protected by the Federal Confidentiality of Alcohol and Drug Abuse Patient Records regulations: The Federal rules restrict any use of the information to criminally investigate or prosecute any alcohol or drug abuse patient.[facility] HospitalIn the event this information is protected by the Federal Confidentiality of Alcohol and Drug Abuse Patient Records regulations: The Federal rules restrict any use of the information to criminally investigate or prosecute any alcohol or drug abuse patient.[facility] HospitalIn the event this information is protected by the Federal Confidentiality of Alcohol and Drug Abuse Patient Records regulations: The Federal rules restrict any use of the information to criminally investigate or prosecute any alcohol or drug abuse patient.[facility] HospitalIn the event this information is protected by the Federal Confidentiality of Alcohol and Drug Abuse Patient Records regulations: The Federal rules restrict any use of the information to criminally investigate or prosecute any alcohol or drug abuse patient.[facility] HospitalIn the event this information is protected by the Federal Confidentiality of Alcohol and Drug Abuse Patient Records regulations: The Federal rules restrict any use of the information to criminally investigate or prosecute any alcohol or drug abuse patient.[facility] HospitalIn the event this information is protected by the Federal Confidentiality of Alcohol and Drug Abuse Patient Records regulations: The Federal rules restrict any use of the information to criminally investigate or prosecute any alcohol or drug abuse patient.[facility] HospitalIn the event this information is protected by the Federal Confidentiality of Alcohol and Drug Abuse Patient Records regulations: The Federal rules restrict any use of the information to criminally investigate or prosecute any alcohol or drug abuse patient.[facility] HospitalIn the event this information is protected by the Federal Confidentiality of Alcohol and Drug Abuse Patient Records regulations: The Federal rules restrict any use of the information to criminally investigate or prosecute any alcohol or drug abuse patient.[facility] HospitalIn the event this information is protected by the Federal Confidentiality of Alcohol and Drug Abuse Patient Records regulations: The Federal rules restrict any use of the information to criminally investigate or prosecute any alcohol or drug abuse patient.[facility] HospitalIn the event this information is protected by the Federal Confidentiality of Alcohol and Drug Abuse Patient Records regulations: The Federal rules restrict any use of the information to criminally investigate or prosecute any alcohol or drug abuse patient.[facility] HospitalIn the event this information is protected by the Federal Confidentiality of Alcohol and Drug Abuse Patient Records regulations: The Federal rules restrict any use of the information to criminally investigate or prosecute any alcohol or drug abuse patient.[facility] HospitalIn the event this information is protected by the Federal Confidentiality of Alcohol and Drug Abuse Patient Records regulations: The Federal rules restrict any use of the information to criminally investigate or prosecute any alcohol or drug abuse patient.[facility] HospitalIn the event this information is protected by the Federal Confidentiality of Alcohol and Drug Abuse Patient Records regulations: The Federal rules restrict any use of the information to criminally investigate or prosecute any alcohol or drug abuse patient.[facility] HospitalIn the event this information is protected by the Federal Confidentiality of Alcohol and Drug Abuse Patient Records regulations: The Federal rules restrict any use of the information to criminally investigate or prosecute any alcohol or drug abuse patient.[facility] HospitalIn the event this information is protected by the Federal Confidentiality of Alcohol and Drug Abuse Patient Records regulations: The Federal rules restrict any use of the information to criminally investigate or prosecute any alcohol or drug abuse patient.[facility] HospitalIn the event this information is protected by the Federal Confidentiality of Alcohol and Drug Abuse Patient Records regulations: The Federal rules restrict any use of the information to criminally investigate or prosecute any alcohol or drug abuse patient.[facility] HospitalIn the event this information is protected by the Federal Confidentiality of Alcohol and Drug Abuse Patient Records regulations: The Federal rules restrict any use of the information to criminally investigate or prosecute any alcohol or drug abuse patient.[facility] HospitalIn the event this information is protected by the Federal Confidentiality of Alcohol and Drug Abuse Patient Records regulations: The Federal rules restrict any use of the information to criminally investigate or prosecute any alcohol or drug abuse patient.[facility] HospitalIn the event this information is protected by the Federal Confidentiality of Alcohol and Drug Abuse Patient Records regulations: The Federal rules restrict any use of the information to criminally investigate or prosecute any alcohol or drug abuse patient.[facility] HospitalIn the event this information is protected by the Federal Confidentiality of Alcohol and Drug Abuse Patient Records regulations: The Federal rules restrict any use of the information to criminally investigate or prosecute any alcohol or drug abuse patient.[facility] HospitalIn the event this information is protected by the Federal Confidentiality of Alcohol and Drug Abuse Patient Records regulations: The Federal rules restrict any use of the information to criminally investigate or prosecute any alcohol or drug abuse patient.[facility] HospitalIn the event this information is protected by the Federal Confidentiality of Alcohol and Drug Abuse Patient Records regulations: The Federal rules restrict any use of the information to criminally investigate or prosecute any alcohol or drug abuse patient.[facility] HospitalIn the event this information is protected by the Federal Confidentiality of Alcohol and Drug Abuse Patient Records regulations: The Federal rules restrict any use of the information to criminally investigate or prosecute any alcohol or drug abuse patient.[facility] HospitalIn the event this information is protected by the Federal Confidentiality of Alcohol and Drug Abuse Patient Records regulations: The Federal rules restrict any use of the information to criminally investigate or prosecute any alcohol or drug abuse patient.[facility] the event this information is protected by the Federal Confidentiality of Alcohol and Drug Abuse Patient Records regulations: The Federal rules restrict any use of the information to criminally investigate or prosecute any alcohol or drug abuse patient.[facility] HospitalIn the event this information is protected by the Federal Confidentiality of Alcohol and Drug Abuse Patient Records regulations: The Federal rules restrict any use of the information to criminally investigate or prosecute any alcohol or drug abuse patient.[facility] HospitalIn the event this information is protected by the Federal Confidentiality of Alcohol and Drug Abuse Patient Records regulations: The Federal rules restrict any use of the information to criminally investigate or prosecute any alcohol or drug abuse patient.[facility] HospitalIn the event this information is protected by the Federal Confidentiality of Alcohol and Drug Abuse Patient Records regulations: The Federal rules restrict any use of the information to criminally investigate or prosecute any alcohol or drug abuse patient.[facility] HospitalIn the event this information is protected by the Federal Confidentiality of Alcohol and Drug Abuse Patient Records regulations: The Federal rules restrict any use of the information to criminally investigate or prosecute any alcohol or drug abuse patient.[facility] HospitalIn the event this information is protected by the Federal Confidentiality of Alcohol and Drug Abuse Patient Records regulations: The Federal rules restrict any use of the information to criminally investigate or prosecute any alcohol or drug abuse patient.[facility] HospitalIn the event this information is protected by the Federal Confidentiality of Alcohol and Drug Abuse Patient Records regulations: The Federal rules restrict any use of the information to criminally investigate or prosecute any alcohol or drug abuse patient.[facility] HospitalIn the event this information is protected by the Federal Confidentiality of Alcohol and Drug Abuse Patient Records regulations: The Federal rules restrict any use of the information to criminally investigate or prosecute any alcohol or drug abuse patient.[facility] HospitalIn the event this information is protected by the Federal Confidentiality of Alcohol and Drug Abuse Patient Records regulations: The Federal rules restrict any use of the information to criminally investigate or prosecute any alcohol or drug abuse patient.[facility] HospitalIn the event this information is protected by the Federal Confidentiality of Alcohol and Drug Abuse Patient Records regulations: The Federal rules restrict any use of the information to criminally investigate or prosecute any alcohol or drug abuse patient.[facility] HospitalIn the event this information is protected by the Federal Confidentiality of Alcohol and Drug Abuse Patient Records regulations: The Federal rules restrict any use of the information to criminally investigate or prosecute any alcohol or drug abuse patient.[facility] HospitalIn the event this information is protected by the Federal Confidentiality of Alcohol and Drug Abuse Patient Records regulations: The Federal rules restrict any use of the information to criminally investigate or prosecute any alcohol or drug abuse patient.[facility] HospitalIn the event this information is protected by the Federal Confidentiality of Alcohol and Drug Abuse Patient Records regulations: The Federal rules restrict any use of the information to criminally investigate or prosecute any alcohol or drug abuse patient.[facility] HospitalIn the event this information is protected by the Federal Confidentiality of Alcohol and Drug Abuse Patient Records regulations: The Federal rules restrict any use of the information to criminally investigate or prosecute any alcohol or drug abuse patient.[facility] HospitalIn the event this information is protected by the Federal Confidentiality of Alcohol and Drug Abuse Patient Records regulations: The Federal rules restrict any use of the information to criminally investigate or prosecute any alcohol or drug abuse patient.[facility] HospitalIn the event this information is protected by the Federal Confidentiality of Alcohol and Drug Abuse Patient Records regulations: The Federal rules restrict any use of the information to criminally investigate or prosecute any alcohol or drug abuse patient.[facility] HospitalIn the event this information is protected by the Federal Confidentiality of Alcohol and Drug Abuse Patient Records regulations: The Federal rules restrict any use of the information to criminally investigate or prosecute any alcohol or drug abuse patient.[facility] HospitalIn the event this information is protected by the Federal Confidentiality of Alcohol and Drug Abuse Patient Records regulations: The Federal rules restrict any use of the information to criminally investigate or prosecute any alcohol or drug abuse patient.[facility] HospitalIn the event this information is protected by the Federal Confidentiality of Alcohol and Drug Abuse Patient Records regulations: The Federal rules restrict any use of the information to criminally investigate or prosecute any alcohol or drug abuse patient.[facility] HospitalIn the event this information is protected by the Federal Confidentiality of Alcohol and Drug Abuse Patient Records regulations: The Federal rules restrict any use of the information to criminally investigate or prosecute any alcohol or drug abuse patient.[facility] HospitalIn the event this information is protected by the Federal Confidentiality of Alcohol and Drug Abuse Patient Records regulations: The Federal rules restrict any use of the information to criminally investigate or prosecute any alcohol or drug abuse patient.[facility] HospitalIn the event this information is protected by the Federal Confidentiality of Alcohol and Drug Abuse Patient Records regulations: The Federal rules restrict any use of the information to criminally investigate or prosecute any alcohol or drug abuse patient.[facility] HospitalIn the event this information is protected by the Federal Confidentiality of Alcohol and Drug Abuse Patient Records regulations: The Federal rules restrict any use of the information to criminally investigate or prosecute any alcohol or drug abuse patient.[facility] HospitalIn the event this information is protected by the Federal Confidentiality of Alcohol and Drug Abuse Patient Records regulations: The Federal rules restrict any use of the information to criminally investigate or prosecute any alcohol or drug abuse patient.[facility] HospitalIn the event this information is protected by the Federal Confidentiality of Alcohol and Drug Abuse Patient Records regulations: The Federal rules restrict any use of the information to criminally investigate or prosecute any alcohol or drug abuse patient.[facility] HospitalIn the event this information is protected by the Federal Confidentiality of Alcohol and Drug Abuse Patient Records regulations: The Federal rules restrict any use of the information to criminally investigate or prosecute any alcohol or drug abuse patient.[facility] HospitalIn the event this information is protected by the Federal Confidentiality of Alcohol and Drug Abuse Patient Records regulations: The Federal rules restrict any use of the information to criminally investigate or prosecute any alcohol or drug abuse patient.[facility] HospitalIn the event this information is protected by the Federal Confidentiality of Alcohol and Drug Abuse Patient Records regulations: The Federal rules restrict any use of the information to criminally investigate or prosecute any alcohol or drug abuse patient.[facility] HospitalIn the event this information is protected by the Federal Confidentiality of Alcohol and Drug Abuse Patient Records regulations: The Federal rules restrict any use of the information to criminally investigate or prosecute any alcohol or drug abuse patient.[facility] HospitalIn the event this information is protected by the Federal Confidentiality of Alcohol and Drug Abuse Patient Records regulations: The Federal rules restrict any use of the information to criminally investigate or prosecute any alcohol or drug abuse patient.[facility] HospitalIn the event this information is protected by the Federal Confidentiality of Alcohol and Drug Abuse Patient Records regulations: The Federal rules restrict any use of the information to criminally investigate or prosecute any alcohol or drug abuse patient.[facility] HospitalIn the event this information is protected by the Federal Confidentiality of Alcohol and Drug Abuse Patient Records regulations: The Federal rules restrict any use of the information to criminally investigate or prosecute any alcohol or drug abuse patient.[facility] HospitalIn the event this information is protected by the Federal Confidentiality of Alcohol and Drug Abuse Patient Records regulations: The Federal rules restrict any use of the information to criminally investigate or prosecute any alcohol or drug abuse patient.[facility] HospitalIn the event this information is protected by the Federal Confidentiality of Alcohol and Drug Abuse Patient Records regulations: The Federal rules restrict any use of the information to criminally investigate or prosecute any alcohol or drug abuse patient.[facility] HospitalIn the event this information is protected by the Federal Confidentiality of Alcohol and Drug Abuse Patient Records regulations: The Federal rules restrict any use of the information to criminally investigate or prosecute any alcohol or drug abuse patient.[facility] HospitalIn the event this information is protected by the Federal Confidentiality of Alcohol and Drug Abuse Patient Records regulations: The Federal rules restrict any use of the information to criminally investigate or prosecute any alcohol or drug abuse patient.[facility] HospitalIn the event this information is protected by the Federal Confidentiality of Alcohol and Drug Abuse Patient Records regulations: The Federal rules restrict any use of the information to criminally investigate or prosecute any alcohol or drug abuse patient.[facility] HospitalIn the event this information is protected by the Federal Confidentiality of Alcohol and Drug Abuse Patient Records regulations: The Federal rules restrict any use of the information to criminally investigate or prosecute any alcohol or drug abuse patient.[facility] HospitalIn the event this information is protected by the Federal Confidentiality of Alcohol and Drug Abuse Patient Records regulations: The Federal rules restrict any use of the information to criminally investigate or prosecute any alcohol or drug abuse patient.[facility] HospitalIn the event this information is protected by the Federal Confidentiality of Alcohol and Drug Abuse Patient Records regulations: The Federal rules restrict any use of the information to criminally investigate or prosecute any alcohol or drug abuse patient.[facility] HospitalIn the event this information is protected by the Federal Confidentiality of Alcohol and Drug Abuse Patient Records regulations: The Federal rules restrict any use of the information to criminally investigate or prosecute any alcohol or drug abuse patient.[facility] HospitalIn the event this information is protected by the Federal Confidentiality of Alcohol and Drug Abuse Patient Records regulations: The Federal rules restrict any use of the information to criminally investigate or prosecute any alcohol or drug abuse patient.[facility] HospitalIn the event this information is protected by the Federal Confidentiality of Alcohol and Drug Abuse Patient Records regulations: The Federal rules restrict any use of the information to criminally investigate or prosecute any alcohol or drug abuse patient.[facility] HospitalIn the event this information is protected by the Federal Confidentiality of Alcohol and Drug Abuse Patient Records regulations: The Federal rules restrict any use of the information to criminally investigate or prosecute any alcohol or drug abuse patient.[facility] HospitalIn the event this information is protected by the Federal Confidentiality of Alcohol and Drug Abuse Patient Records regulations: The Federal rules restrict any use of the information to criminally investigate or prosecute any alcohol or drug abuse patient.[facility] HospitalIn the event this information is protected by the Federal Confidentiality of Alcohol and Drug Abuse Patient Records regulations: The Federal rules restrict any use of the information to criminally investigate or prosecute any alcohol or drug abuse patient.[facility] HospitalIn the event this information is protected by the Federal Confidentiality of Alcohol and Drug Abuse Patient Records regulations: The Federal rules restrict any use of the information to criminally investigate or prosecute any alcohol or drug abuse patient.[facility] HospitalIn the event this information is protected by the Federal Confidentiality of Alcohol and Drug Abuse Patient Records regulations: The Federal rules restrict any use of the information to criminally investigate or prosecute any alcohol or drug abuse patient.[facility] HospitalIn the event this information is protected by the Federal Confidentiality of Alcohol and Drug Abuse Patient Records regulations: The Federal rules restrict any use of the information to criminally investigate or prosecute any alcohol or drug abuse patient.[facility] HospitalIn the event this information is protected by the Federal Confidentiality of Alcohol and Drug Abuse Patient Records regulations: The Federal rules restrict any use of the information to criminally investigate or prosecute any alcohol or drug abuse patient.[facility] the event this information is protected by the Federal Confidentiality of Alcohol and Drug Abuse Patient Records regulations: The Federal rules restrict any use of the information to criminally investigate or prosecute any alcohol or drug abuse patient.[facility] HospitalIn the event this information is protected by the Federal Confidentiality of Alcohol and Drug Abuse Patient Records regulations: The Federal rules restrict any use of the information to criminally investigate or prosecute any alcohol or drug abuse patient.[facility] HospitalIn the event this information is protected by the Federal Confidentiality of Alcohol and Drug Abuse Patient Records regulations: The Federal rules restrict any use of the information to criminally investigate or prosecute any alcohol or drug abuse patient.[facility] HospitalIn the event this information is protected by the Federal Confidentiality of Alcohol and Drug Abuse Patient Records regulations: The Federal rules restrict any use of the information to criminally investigate or prosecute any alcohol or drug abuse patient.[facility] HospitalIn the event this information is protected by the Federal Confidentiality of Alcohol and Drug Abuse Patient Records regulations: The Federal rules restrict any use of the information to criminally investigate or prosecute any alcohol or drug abuse patient.[facility] HospitalIn the event this information is protected by the Federal Confidentiality of Alcohol and Drug Abuse Patient Records regulations: The Federal rules restrict any use of the information to criminally investigate or prosecute any alcohol or drug abuse patient.[facility] HospitalIn the event this information is protected by the Federal Confidentiality of Alcohol and Drug Abuse Patient Records regulations: The Federal rules restrict any use of the information to criminally investigate or prosecute any alcohol or drug abuse patient.[facility] HospitalIn the event this information is protected by the Federal Confidentiality of Alcohol and Drug Abuse Patient Records regulations: The Federal rules restrict any use of the information to criminally investigate or prosecute any alcohol or drug abuse patient.[facility] HospitalIn the event this information is protected by the Federal Confidentiality of Alcohol and Drug Abuse Patient Records regulations: The Federal rules restrict any use of the information to criminally investigate or prosecute any alcohol or drug abuse patient.[facility] HospitalIn the event this information is protected by the Federal Confidentiality of Alcohol and Drug Abuse Patient Records regulations: The Federal rules restrict any use of the information to criminally investigate or prosecute any alcohol or drug abuse patient.[facility] HospitalIn the event this information is protected by the Federal Confidentiality of Alcohol and Drug Abuse Patient Records regulations: The Federal rules restrict any use of the information to criminally investigate or prosecute any alcohol or drug abuse patient.[facility] HospitalIn the event this information is protected by the Federal Confidentiality of Alcohol and Drug Abuse Patient Records regulations: The Federal rules restrict any use of the information to criminally investigate or prosecute any alcohol or drug abuse patient.[facility] HospitalIn the event this information is protected by the Federal Confidentiality of Alcohol and Drug Abuse Patient Records regulations: The Federal rules restrict any use of the information to criminally investigate or prosecute any alcohol or drug abuse patient.[facility] HospitalIn the event this information is protected by the Federal Confidentiality of Alcohol and Drug Abuse Patient Records regulations: The Federal rules restrict any use of the information to criminally investigate or prosecute any alcohol or drug abuse patient.[facility] HospitalIn the event this information is protected by the Federal Confidentiality of Alcohol and Drug Abuse Patient Records regulations: The Federal rules restrict any use of the information to criminally investigate or prosecute any alcohol or drug abuse patient.[facility] HospitalIn the event this information is protected by the Federal Confidentiality of Alcohol and Drug Abuse Patient Records regulations: The Federal rules restrict any use of the information to criminally investigate or prosecute any alcohol or drug abuse patient.[facility] HospitalIn the event this information is protected by the Federal Confidentiality of Alcohol and Drug Abuse Patient Records regulations: The Federal rules restrict any use of the information to criminally investigate or prosecute any alcohol or drug abuse patient.[facility] HospitalIn the event this information is protected by the Federal Confidentiality of Alcohol and Drug Abuse Patient Records regulations: The Federal rules restrict any use of the information to criminally investigate or prosecute any alcohol or drug abuse patient.[facility] HospitalIn the event this information is protected by the Federal Confidentiality of Alcohol and Drug Abuse Patient Records regulations: The Federal rules restrict any use of the information to criminally investigate or prosecute any alcohol or drug abuse patient.[facility] HospitalIn the event this information is protected by the Federal Confidentiality of Alcohol and Drug Abuse Patient Records regulations: The Federal rules restrict any use of the information to criminally investigate or prosecute any alcohol or drug abuse patient.[facility] HospitalIn the event this information is protected by the Federal Confidentiality of Alcohol and Drug Abuse Patient Records regulations: The Federal rules restrict any use of the information to criminally investigate or prosecute any alcohol or drug abuse patient.[facility] HospitalIn the event this information is protected by the Federal Confidentiality of Alcohol and Drug Abuse Patient Records regulations: The Federal rules restrict any use of the information to criminally investigate or prosecute any alcohol or drug abuse patient.[facility] HospitalIn the event this information is protected by the Federal Confidentiality of Alcohol and Drug Abuse Patient Records regulations: The Federal rules restrict any use of the information to criminally investigate or prosecute any alcohol or drug abuse patient.[facility] HospitalIn the event this information is protected by the Federal Confidentiality of Alcohol and Drug Abuse Patient Records regulations: The Federal rules restrict any use of the information to criminally investigate or prosecute any alcohol or drug abuse patient.[facility] HospitalIn the event this information is protected by the Federal Confidentiality of Alcohol and Drug Abuse Patient Records regulations: The Federal rules restrict any use of the information to criminally investigate or prosecute any alcohol or drug abuse patient.[facility] HospitalIn the event this information is protected by the Federal Confidentiality of Alcohol and Drug Abuse Patient Records regulations: The Federal rules restrict any use of the information to criminally investigate or prosecute any alcohol or drug abuse patient.[facility] HospitalIn the event this information is protected by the Federal Confidentiality of Alcohol and Drug Abuse Patient Records regulations: The Federal rules restrict any use of the information to criminally investigate or prosecute any alcohol or drug abuse patient.[facility] HospitalIn the event this information is protected by the Federal Confidentiality of Alcohol and Drug Abuse Patient Records regulations: The Federal rules restrict any use of the information to criminally investigate or prosecute any alcohol or drug abuse patient.[facility] HospitalIn the event this information is protected by the Federal Confidentiality of Alcohol and Drug Abuse Patient Records regulations: The Federal rules restrict any use of the information to criminally investigate or prosecute any alcohol or drug abuse patient.[facility] HospitalIn the event this information is protected by the Federal Confidentiality of Alcohol and Drug Abuse Patient Records regulations: The Federal rules restrict any use of the information to criminally investigate or prosecute any alcohol or drug abuse patient.[facility] HospitalIn the event this information is protected by the Federal Confidentiality of Alcohol and Drug Abuse Patient Records regulations: The Federal rules restrict any use of the information to criminally investigate or prosecute any alcohol or drug abuse patient.[facility] HospitalIn the event this information is protected by the Federal Confidentiality of Alcohol and Drug Abuse Patient Records regulations: The Federal rules restrict any use of the information to criminally investigate or prosecute any alcohol or drug abuse patient.[facility] HospitalIn the event this information is protected by the Federal Confidentiality of Alcohol and Drug Abuse Patient Records regulations: The Federal rules restrict any use of the information to criminally investigate or prosecute any alcohol or drug abuse patient.[facility] HospitalIn the event this information is protected by the Federal Confidentiality of Alcohol and Drug Abuse Patient Records regulations: The Federal rules restrict any use of the information to criminally investigate or prosecute any alcohol or drug abuse patient.[facility] HospitalIn the event this information is protected by the Federal Confidentiality of Alcohol and Drug Abuse Patient Records regulations: The Federal rules restrict any use of the information to criminally investigate or prosecute any alcohol or drug abuse patient.[facility] HospitalIn the event this information is protected by the Federal Confidentiality of Alcohol and Drug Abuse Patient Records regulations: The Federal rules restrict any use of the information to criminally investigate or prosecute any alcohol or drug abuse patient.[facility] HospitalIn the event this information is protected by the Federal Confidentiality of Alcohol and Drug Abuse Patient Records regulations: The Federal rules restrict any use of the information to criminally investigate or prosecute any alcohol or drug abuse patient.[facility] HospitalIn the event this information is protected by the Federal Confidentiality of Alcohol and Drug Abuse Patient Records regulations: The Federal rules restrict any use of the information to criminally investigate or prosecute any alcohol or drug abuse patient.[facility] HospitalIn the event this information is protected by the Federal Confidentiality of Alcohol and Drug Abuse Patient Records regulations: The Federal rules restrict any use of the information to criminally investigate or prosecute any alcohol or drug abuse patient.[facility] HospitalIn the event this information is protected by the Federal Confidentiality of Alcohol and Drug Abuse Patient Records regulations: The Federal rules restrict any use of the information to criminally investigate or prosecute any alcohol or drug abuse patient.[facility] HospitalIn the event this information is protected by the Federal Confidentiality of Alcohol and Drug Abuse Patient Records regulations: The Federal rules restrict any use of the information to criminally investigate or prosecute any alcohol or drug abuse patient.[facility] HospitalIn the event this information is protected by the Federal Confidentiality of Alcohol and Drug Abuse Patient Records regulations: The Federal rules restrict any use of the information to criminally investigate or prosecute any alcohol or drug abuse patient.[facility] HospitalIn the event this information is protected by the Federal Confidentiality of Alcohol and Drug Abuse Patient Records regulations: The Federal rules restrict any use of the information to criminally investigate or prosecute any alcohol or drug abuse patient.[facility] HospitalIn the event this information is protected by the Federal Confidentiality of Alcohol and Drug Abuse Patient Records regulations: The Federal rules restrict any use of the information to criminally investigate or prosecute any alcohol or drug abuse patient.[facility] HospitalIn the event this information is protected by the Federal Confidentiality of Alcohol and Drug Abuse Patient Records regulations: The Federal rules restrict any use of the information to criminally investigate or prosecute any alcohol or drug abuse patient.[facility] HospitalIn the event this information is protected by the Federal Confidentiality of Alcohol and Drug Abuse Patient Records regulations: The Federal rules restrict any use of the information to criminally investigate or prosecute any alcohol or drug abuse patient.[facility] HospitalIn the event this information is protected by the Federal Confidentiality of Alcohol and Drug Abuse Patient Records regulations: The Federal rules restrict any use of the information to criminally investigate or prosecute any alcohol or drug abuse patient.[facility] HospitalIn the event this information is protected by the Federal Confidentiality of Alcohol and Drug Abuse Patient Records regulations: The Federal rules restrict any use of the information to criminally investigate or prosecute any alcohol or drug abuse patient.[facility] HospitalIn the event this information is protected by the Federal Confidentiality of Alcohol and Drug Abuse Patient Records regulations: The Federal rules restrict any use of the information to criminally investigate or prosecute any alcohol or drug abuse patient.[facility] HospitalIn the event this information is protected by the Federal Confidentiality of Alcohol and Drug Abuse Patient Records regulations: The Federal rules restrict any use of the information to criminally investigate or prosecute any alcohol or drug abuse patient.[facility] the event this information is protected by the Federal Confidentiality of Alcohol and Drug Abuse Patient Records regulations: The Federal rules restrict any use of the information to criminally investigate or prosecute any alcohol or drug abuse patient.[facility] HospitalIn the event this information is protected by the Federal Confidentiality of Alcohol and Drug Abuse Patient Records regulations: The Federal rules restrict any use of the information to criminally investigate or prosecute any alcohol or drug abuse patient.[facility] HospitalIn the event this information is protected by the Federal Confidentiality of Alcohol and Drug Abuse Patient Records regulations: The Federal rules restrict any use of the information to criminally investigate or prosecute any alcohol or drug abuse patient.[facility] HospitalIn the event this information is protected by the Federal Confidentiality of Alcohol and Drug Abuse Patient Records regulations: The Federal rules restrict any use of the information to criminally investigate or prosecute any alcohol or drug abuse patient.[facility] HospitalIn the event this information is protected by the Federal Confidentiality of Alcohol and Drug Abuse Patient Records regulations: The Federal rules restrict any use of the information to criminally investigate or prosecute any alcohol or drug abuse patient.[facility] HospitalIn the event this information is protected by the Federal Confidentiality of Alcohol and Drug Abuse Patient Records regulations: The Federal rules restrict any use of the information to criminally investigate or prosecute any alcohol or drug abuse patient.[facility] HospitalIn the event this information is protected by the Federal Confidentiality of Alcohol and Drug Abuse Patient Records regulations: The Federal rules restrict any use of the information to criminally investigate or prosecute any alcohol or drug abuse patient.[facility] HospitalIn the event this information is protected by the Federal Confidentiality of Alcohol and Drug Abuse Patient Records regulations: The Federal rules restrict any use of the information to criminally investigate or prosecute any alcohol or drug abuse patient.[facility] HospitalIn the event this information is protected by the Federal Confidentiality of Alcohol and Drug Abuse Patient Records regulations: The Federal rules restrict any use of the information to criminally investigate or prosecute any alcohol or drug abuse patient.[facility] HospitalIn the event this information is protected by the Federal Confidentiality of Alcohol and Drug Abuse Patient Records regulations: The Federal rules restrict any use of the information to criminally investigate or prosecute any alcohol or drug abuse patient.[facility] HospitalIn the event this information is protected by the Federal Confidentiality of Alcohol and Drug Abuse Patient Records regulations: The Federal rules restrict any use of the information to criminally investigate or prosecute any alcohol or drug abuse patient.[facility] HospitalIn the event this information is protected by the Federal Confidentiality of Alcohol and Drug Abuse Patient Records regulations: The Federal rules restrict any use of the information to criminally investigate or prosecute any alcohol or drug abuse patient.[facility] HospitalIn the event this information is protected by the Federal Confidentiality of Alcohol and Drug Abuse Patient Records regulations: The Federal rules restrict any use of the information to criminally investigate or prosecute any alcohol or drug abuse patient.[facility] HospitalIn the event this information is protected by the Federal Confidentiality of Alcohol and Drug Abuse Patient Records regulations: The Federal rules restrict any use of the information to criminally investigate or prosecute any alcohol or drug abuse patient.[facility] HospitalIn the event this information is protected by the Federal Confidentiality of Alcohol and Drug Abuse Patient Records regulations: The Federal rules restrict any use of the information to criminally investigate or prosecute any alcohol or drug abuse patient.[facility] HospitalIn the event this information is protected by the Federal Confidentiality of Alcohol and Drug Abuse Patient Records regulations: The Federal rules restrict any use of the information to criminally investigate or prosecute any alcohol or drug abuse patient.[facility] HospitalIn the event this information is protected by the Federal Confidentiality of Alcohol and Drug Abuse Patient Records regulations: The Federal rules restrict any use of the information to criminally investigate or prosecute any alcohol or drug abuse patient.[facility] HospitalIn the event this information is protected by the Federal Confidentiality of Alcohol and Drug Abuse Patient Records regulations: The Federal rules restrict any use of the information to criminally investigate or prosecute any alcohol or drug abuse patient.[facility] HospitalIn the event this information is protected by the Federal Confidentiality of Alcohol and Drug Abuse Patient Records regulations: The Federal rules restrict any use of the information to criminally investigate or prosecute any alcohol or drug abuse patient.[facility] HospitalIn the event this information is protected by the Federal Confidentiality of Alcohol and Drug Abuse Patient Records regulations: The Federal rules restrict any use of the information to criminally investigate or prosecute any alcohol or drug abuse patient.[facility] HospitalIn the event this information is protected by the Federal Confidentiality of Alcohol and Drug Abuse Patient Records regulations: The Federal rules restrict any use of the information to criminally investigate or prosecute any alcohol or drug abuse patient.[facility] HospitalIn the event this information is protected by the Federal Confidentiality of Alcohol and Drug Abuse Patient Records regulations: The Federal rules restrict any use of the information to criminally investigate or prosecute any alcohol or drug abuse patient.[facility] HospitalIn the event this information is protected by the Federal Confidentiality of Alcohol and Drug Abuse Patient Records regulations: The Federal rules restrict any use of the information to criminally investigate or prosecute any alcohol or drug abuse patient.[facility] HospitalIn the event this information is protected by the Federal Confidentiality of Alcohol and Drug Abuse Patient Records regulations: The Federal rules restrict any use of the information to criminally investigate or prosecute any alcohol or drug abuse patient.[facility] HospitalIn the event this information is protected by the Federal Confidentiality of Alcohol and Drug Abuse Patient Records regulations: The Federal rules restrict any use of the information to criminally investigate or prosecute any alcohol or drug abuse patient.[facility] HospitalIn the event this information is protected by the Federal Confidentiality of Alcohol and Drug Abuse Patient Records regulations: The Federal rules restrict any use of the information to criminally investigate or prosecute any alcohol or drug abuse patient.[facility] HospitalIn the event this information is protected by the Federal Confidentiality of Alcohol and Drug Abuse Patient Records regulations: The Federal rules restrict any use of the information to criminally investigate or prosecute any alcohol or drug abuse patient.[facility] HospitalIn the event this information is protected by the Federal Confidentiality of Alcohol and Drug Abuse Patient Records regulations: The Federal rules restrict any use of the information to criminally investigate or prosecute any alcohol or drug abuse patient.[facility] HospitalIn the event this information is protected by the Federal Confidentiality of Alcohol and Drug Abuse Patient Records regulations: The Federal rules restrict any use of the information to criminally investigate or prosecute any alcohol or drug abuse patient.[facility] HospitalIn the event this information is protected by the Federal Confidentiality of Alcohol and Drug Abuse Patient Records regulations: The Federal rules restrict any use of the information to criminally investigate or prosecute any alcohol or drug abuse patient.[facility] Hospital[facility] the event this information is protected by the Federal Confidentiality of Alcohol and Drug Abuse Patient Records regulations: The Federal rules restrict any use of the information to criminally investigate or prosecute any alcohol or drug abuse patient.[facility] HospitalIn the event this information is protected by the Federal Confidentiality of Alcohol and Drug Abuse Patient Records regulations: The Federal rules restrict any use of the information to criminally investigate or prosecute any alcohol or drug abuse patient.[facility] HospitalIn the event this information is protected by the Federal Confidentiality of Alcohol and Drug Abuse Patient Records regulations: The Federal rules restrict any use of the information to criminally investigate or prosecute any alcohol or drug abuse patient.[facility] HospitalIn the event this information is protected by the Federal Confidentiality of Alcohol and Drug Abuse Patient Records regulations: The Federal rules restrict any use of the information to criminally investigate or prosecute any alcohol or drug abuse patient.[facility] Reason for Visit (unrecogniz ed section [...] BREAST UNI REAL TIME WITH IMAGE LIMITED Jack, PRINTED CIRCUIT BOARDS STRIPPER ETCHER.DIE PRESSER [address] [place] [address] Br Imaging [address] [id number] Referral ID Status Reason Start Date Expiration Date V isits Requested Visits Authorized [id number] Closed Auto-Generate d Referral 09/05/2021 10/05/2022 1 1 Reason Comments Radiology Mammogram Specialty Diagnoses / Procedures Referred By Contac t Referred To Contact BR IMAGING Diagnoses Abnormal mammogram Procedures SABINO DIAGNOSTIC LT DIAGNOSTIC MAMMOGRAPHY COMPUTER-AIDED DETCJ UNI Jack, Brenda, PRINTED CIRCUIT BOARDS STRIPPER ETCHER.DIE PRESSER [address] [place] [address] Br Imaging [address] [place] [address] Referral ID Status Reason Start Date Expiration Date V isits Requested Visits Authorized [id number] Closed Auto-Generate d Referral 09/05/2021 10/05/2022 1 [...] acute, left Procedures CONSULT TO ORTHOPAEDICS OFFICE/OUTPATIENT [facility] HIGH MDM 60-74 MINUTES Twyla Cuevas APRN.DIE PRESSER [address] [place] [address] Referral ID Status Reason Start Date Expiration Date Visits Requested Visits Authorized [id number] Pending Review PCP Requested Referral 10/11/2022 10/11/2023 1 1 Reason Onset Date Comments Refill Request 12/20/[address] Specialty Diagnoses / Procedures Referred By Contac t Referred To Contact CT IMAGING Diagnoses Lung nodules Procedures CT CHEST WO IVCON DIAGNOSTIC COMPUTED TOMOGRAPHY THORAX W/O Florence Duncan MD [address] [place] [address] Ct Imaging [place] [address] Referral ID Status Reason Start Date Expiration Date V isits Requested Visits Authorized [id number] Closed Auto-Generate d Referral 11/29/2021 12/29/2022 1 [...] Reason Comments Discharge Skilled Rehab Discharged from [facility] Reason Onset Date Comments Refill Request 07/17/2023 [...] MD [address] [place] [address] [place] [id number] Referral ID Status Reason Start Date Expiration Date V isits Requested Visits Authorized [id number] Closed Auto-Generate d Referral 08/30/2023 02/19/2024 1 1 Reason Onset Date Comments Refill Request 08/30/2023 Reason Onset Date Comments Community Monitoring Outreach 08/31/2023 F/ U engagement [facility] Home Monitoring Reason Comments Histoplasmosis Reason Comments Hospital F/U [facility] ED/Hospital disc harge 08/18/23 Reason Comments Med [...] years)Recent BLE Edema and Discomfort- compression[facility] [place] [place] [facility] for BleedingDoesn't like taking diuretics when [...] Consult Specialty Diagnoses / Procedures Referred By Contfabian t Referred To Contact Cardiology Diagnoses Aortic valve stenosis, etiology of cardiac valve disease unspecified Mitral valve stenosis, unspecified etiology Pericardial effusion Procedures CONSULT TO CARDIOLOGY OFFICE/OUTPATIENT NEW HIGH MDM 60 MINUTES Jimbo Swanson, PRINTED CIRCUIT BOARDS STRIPPER ETCHER.M[employer]ICIPAL [address] MAGISTRATE [address] [place] [address] Referral ID Status Reason Start Date Expiration Date V isits Requested Visits Authorized [id number] Closed PCP Requested Referral 10/11/2023 10/10/2024 1 [...] CT ANGIO ABD&PLVIS CNTRST MTRL W/WO CNTRST IMMonica Ruffin, PRINTED CIRCUIT BOARDS STRIPPER ETCHER.DIE PRESSER [address] [place] [id number] Imaging [place] [address] Referral ID Status Reason Start Date Expiration Date V isits Requested Visits Authorized [id number] Closed Auto-Generate d Referral 01/08/2024 02/06/2025 1 1 Reason Comments Patient Education Reason Comments Spirometry Specialty Diagnoses / Procedures Referred By Contac t Referred To Contact [facility] Diagnoses Nonrheumatic aortic valve stenosis Procedures SPIROMETRY BASELINE ONLY SPMTRY W/VC EXPIRATORY [place] W/WO MXML VOL VNTJ Monica Aguila, PRINTED CIRCUIT BOARDS STRIPPER ETCHER.DIE PRESSER [address] [place] [address] Respiratory [place] [address] [place] [address] Referral ID Status Reason Start Date Expiration Date V isits Requested Visits Authorized [id number] Closed Auto-Generate d Referral 01/08/2024 02/06/2025 1 1 Specialty Diagnoses / Procedures Referred By Contac t Referred To Contact [facility] Diagnoses Nonrheumatic aortic valve stenosis Procedures LUNG DIFFUSION CAPACITY (DLCO) DIFFUSING CAPACITY Monica Aguila, CONNIE.DIE PRESSER [address] [place] [address] Respiratory [place] [address] [place] [address] Referral ID Status Reason Start Date Expiration Date V isits Requested Visits Authorized [id number] Closed Auto-Generate d Referral 01/08/2024 02/06/2025 1 1 Reason Comments Aortic Stenosis Reason Comments Radiology NM Specialty Diagnoses / Procedures Referred By Contac t Referred To Contact MOLECULAR & FUNCTIONAL IMAGING Diagnoses Nonrheumatic aortic valve stenosis Procedures NM SPECT/CT CARDIAC AMYLOID RP LOCLZJ MARY SPECT W/CT 1 AREA 1 DAY IMAGING Monica Aguila APRN.DIE PRESSER [address] [place] [address] Molecular & Functional Imaging [address] [place] [address] Referral ID Status Reason Start Date Expiration Date V isits Requested Visits Authorized [id number] Closed Auto-Generate d Referral 01/08/2024 02/06/2025 1 1 Reason Onset Date Comments Population Health Navigation Outreach 03/26/2024 [employer] High Risk - Attempt 2 Reason Onset Date Comments Population Health Navigation Outreach 03/31/2024 [employer] High Risk - Attempt 3 Reason Comments TAVR Meeting Reason Comments Insurance Authorization Reason Comments Referral Information Surgical Consult [facility] Dr. Francis Reason Comments Appointment TAVR [...] Request 08/16/2024 Reason Comments home health calling Reason Comments Hospital F/U Reason Comments Orders Care Teams (unrecognized sec tion and content) Senior Benefits Analyst Relationship Specialty Start Date End Date Claudine Durán MD [address] [place], [place] [address] PCP - General Internal Medicine 03/02/16 Will Hurley [address] [place] [address] Referring Rheumatology 04/09/18 Gold Colón, market researcherPoultry Hanger Internal Medicine 07/22/20 Senior Benefits Analyst Relationship Specialty Start Date End Date Claudine Durán MD [address] [place], [place] [id number] PCP - General Internal Medicine 03/02/16 Will [address]ley[address] [place], [place] [address] Referring Rheumatology 04/09/18 Gold Colón, market researcherPoultry Hanger Internal Medicine 07/22/20 Senior Benefits Analyst Relationship Specialty Start Date End Date Claudine Durán MD [address] [place], [place] [id number] PCP - General Internal Medicine 03/02/16 [place] [address] Referring Rheumatology 04/09/18 Gold Colón, market researcherPoultry Hanger Internal Medicine 07/22/20 Senior Benefits Analyst Relationship Specialty Start Date End Date Claudine Durán MD [address] [place], [place] [address] PCP - General Internal Medicine 03/02/16 [place] [address] Referring Rheumatology 04/09/18 Gold Colón, market researcherPoultry Hanger Internal Medicine 07/22/20 Senior Benefits Analyst Relationship Specialty Start Date End Date Claudine Durán MD [address] [facility], [place] 68[address]71 PCP - General Internal Medicine 03/02/16 Will Hurley [address] [facility] [place] [address] Referring Rheumatology 04/09/18 Gold Colón, market researcherPoultry Hanger Internal Medicine 07/22/20 Senior Benefits Analyst Relationship Specialty Start Date End Date Claudine Durán MD [address] [facility], [place] [id number] PCP - General Internal Medicine 03/02/16 Will Hurley [address] [facility] [place] [address] Referring Rheumatology 04/09/18 Gold Colón, market researcherPoultry Hanger Internal Medicine 07/22/20 Senior Benefits Analyst Relationship Specialty Start Date End Date Claudine Durán MD [address] [place] [id number] PCP - General Internal Medicine 03/02/16 Will Hurley [address] [facility] [place] [address] Referring Rheumatology 04/09/18 Gold Colón, market researcherPoultry Hanger Internal Medicine 07/22/20 Senior Benefits Analyst Relationship Specialty Start Date End Date Claudine Durán MD [address] [facility], [place] [address]191 PCP - General Internal Medicine 03/02/16 Will Hurley [address] [facility] [place] [id number] Referring Rheumatology 04/09/18 Gold Colón, market researcherPoultry Hanger Internal Medicine 07/22/20 Senior Benefits Analyst Relationship Specialty Start Date End Date Claudine Durán MD [address] [facility], [place] [id number] PCP - General Internal Medicine 03/02/16 Will Hurley [address] [facility] [place] [address] Referring Rheumatology 04/09/18 Gold Colón, market researcherPoultry Hanger Internal Medicine 07/22/20 Senior Benefits Analyst Relationship Specialty Start Date End Date Claudine Durán MD [address] [place] [address] PCP - General Internal Medicine 03/02/16 Will Hurley [address] [facility] [place] [address] Referring Rheumatology 04/09/18 Gold oClón, market researcherPoultry Hanger Internal Medicine 07/22/20 Senior Benefits Analyst Relationship Specialty Start Date End Date Claudine Durán MD [address] [place] [address] PCP - General Internal Medicine 03/02/16 Will Hurley [address] [facility] [place] [address] Referring Rheumatology 04/09/18 Gold Colón, market researcherPoultry Hanger Internal Medicine 07/22/20 Senior Benefits Analyst Relationship Specialty Start Date End Date Claudine Durán MD [address] [place] [address] PCP - General Internal Medicine 03/02/16 Will Hurley [address] [facility] [place] [address] Referring Rheumatology 04/09/18 Gold Colón, market researcherPoultry Hanger Internal Medicine 07/22/20 Senior Benefits Analyst Relationship Specialty Start Date End Date Claudine Durán MD [address] [place], [place] 502841 PCP - General Internal Medicine 03/02/16 Will Hurley [address] [facility] [place] [address] Referring Rheumatology 04/09/18 Gold Colón, market researcherPoultry Hanger Internal Medicine 07/22/20 Senior Benefits Analyst Relationship Specialty Start Date End Date Claudine Durán MD [address] [place] [address] PCP - General Internal Medicine 03/02/16 Will Hurley [address] [facility] [place] [address] Referring Rheumatology 04/09/18 Gold Colón, market researcherPoultry Hanger Internal Medicine 07/22/20 Senior Benefits Analyst Relationship Specialty Start Date End Date Claudine Durán MD [address] [place] [address] PCP - General Internal Medicine 03/02/16 Will Hurley [address] [facility] [place] [address] Referring Rheumatology 04/09/18 Gold Colón, market researcherPoultry Hanger Internal Medicine 07/22/20 Senior Benefits Analyst Relationship Specialty Start Date End Date Claudine Durán MD [address] [place], [place] [id number] PCP - General Internal Medicine 03/02/16 Will Hurley [address] [facility], [place] [id number] Referring Rheumatology 04/09/18 Gold Colón, market researcherPoultry Hanger Internal Medicine 07/22/20 Senior Benefits Analyst Relationship Specialty Start Date End Date Claudine Durán MD [address] [place], [place] 69[address] PCP - General Internal Medicine 03/02/16 Will Hurley[address] [facility] [place] [address] Referring Rheumatology 04/09/18 Gold Colón market researcherPoultry Hanger Internal Medicine 07/22/20 Senior Benefits Analyst Relationship Specialty Start Date End Date Claudine Durán MD [address] [place] [address] PCP - General Internal Medicine 03/02/16 Will Hurley [address] [facility] [place] [address] Referring Rheumatology 04/09/18 Gold Colón, market researcherPoultry Hanger Internal Medicine 07/22/20 Senior Benefits Analyst Relationship Specialty Start Date End Date Claudine Durán MD [address] [place], [place] 124191 PCP - General Internal Medicine 03/02/16 Will Hurley [address] [facility] [place] [address] Referring Rheumatology 04/09/18 Lulú Ramos, PAULA [address] [place] [address] Poultry Hanger Family Medicine 07/22/20 Senior Benefits Analyst Relationship Specialty Start Date End Date Claudine Durán MD [address] [place] [address] PCP - General Internal Medicine 03/02/16 Will Hurley [address] [place] [facility] [place] [address] Referring Rheumatology 04/09/18 Gold Colón, market researcherPoultry Hanger Internal Medicine 07/22/20 12/20/21 Lulú Ramos, RN [address] [place] [address] Poultry Hanger Family Medicine 07/22/20 Senior Benefits Analyst Relationship Specialty Start Date End Date Claudine Durán MD [address] [place] [address] PCP - General Internal Medicine 03/02/16 Will Hurley [facility] N [facility] [place] [address] Referring Rheumatology 04/09/18 Lulú Ramos, RN [address] [place] [address] Poultry Hanger Family Medicine 07/22/20 Senior Benefits Analyst Relationship Specialty Start Date End Date Claudine Durán MD [address] [place] [address] PCP - General Internal Medicine 03/02/16 Will Hurley [facility] N [facility] [place] [address] Referring Rheumatology 04/09/18 Lulú Ramos, RN [address] [place] [address] Poultry Hanger Family Medicine 07/22/20 Senior Benefits Analyst Relationship Specialty Start Date End Date Claudine Durán MD [address] [place] [address] PCP - General Internal Medicine 03/02/16 Will Hurley [address] [facility] [address] Referring Rheumatology 04/09/18 Lulú Ramos, RN [address] [place] [address] Poultry Hanger Family Medicine 07/22/20 Senior Benefits Analyst Relationship Specialty Start Date End Date Claudine Durán MD [address] [facility], [place] [address]441 PCP - General Internal Medicine 03/02/16 Will Hurley [facility] N [facility] [place] [address] Referring Rheumatology 04/09/18 Lulú Ramos, RN [address] [place] [address] Poultry Hanger Family Medicine 07/22/20 Senior Benefits Analyst Relationship Specialty Start Date End Date Cluadine Durán MD [address] [place] [address] PCP - General Internal Medicine 03/02/16 Will Hurley [facility] N [facility] [place] [address] Referring Rheumatology 04/09/18 Lulú Ramos, PAULA [address] [place] [address] Poultry Hanger Family Medicine 12/20/21 Senior Benefits Analyst Relationship Specialty Start Date End Date Claudine Durán MD [address] [place] [address] PCP - General Internal Medicine 03/02/16 Will Hurley [facility] N [facility] [place] [address] Referring Rheumatology 04/09/18 Lulú Ramos, RN [address] [place] [address] Poultry Hanger Family Medicine 12/20/21 Senior Benefits Analyst Relationship Specialty Start Date End Date Claudine Durán MD [address] [place] [address] PCP - General Internal Medicine 03/02/16 Will Hurley [facility] N [facility] [place] [address] Referring Rheumatology 04/09/18 Lulú Ramos, PAULA [address] [place] [address] Poultry Hanger Family Medicine 12/20/21 Senior Benefits Analyst Relationship Specialty Start Date End Date Claudine Durán MD [address] [place] [address] PCP - General Internal Medicine 03/02/16 Will Hurley [address] [facility] [place] [address] Referring Rheumatology 04/09/18 Lulú Ramos RN [address] [place] [address] Poultry Hanger Family Medicine 12/20/21 Senior Benefits Analyst Relationship Specialty Start Date End Date Claudine Durán MD [address] [place] [address] PCP - General Internal Medicine 03/02/16 Will Hurley [facility] N [facility] [place] [address] Referring Rheumatology 04/09/18 Lulú Ramos, PAULA [address] [place] [address] Poultry Hanger Family Medicine 12/20/21 Senior Benefits Analyst Relationship Specialty Start Date End Date Claudine Durán MD [address] [place] [address] PCP - General Internal Medicine 03/02/16 Will Hurley [address] [facility] [place] [address] Referring Rheumatology 04/09/18 Lulú Ramos, RN [address] [place] [address] Poultry Hanger Family Medicine 12/20/21 Senior Benefits Analyst Relationship Specialty Start Date End Date Claudine Durán MD [address] [place] [address] PCP - General Internal Medicine 03/02/16 Will Hurley [facility] N [facility] [place] [address] Referring Rheumatology 04/09/18 Lulú Ramos, PAULA [address] [place] [address] Poultry Hanger Family Medicine 12/20/21 Senior Benefits Analyst Relationship Specialty Start Date End Date Claudine Durán MD [address] [place] [address] PCP - General Internal Medicine 03/02/16 Will Hurley [facility] N [facility] [place] [address] Referring Rheumatology 04/09/18 Lulú Ramos, PAULA [address] [place] [address] Poultry Hanger Family Medicine 12/20/21 Senior Benefits Analyst Relationship Specialty Start Date End Date Claudine Durán MD [address] [place] [address] PCP - General Internal Medicine 03/02/16 Will Hurley [address] [facility] [place] [address] Referring Rheumatology 04/09/18 Lulú Ramos, PAULA [address] [place], [place] 7394831 Poultry Hanger Family Medicine 12/20/21 Senior Benefits Analyst Relationship Specialty Start Date End Date Claudine Durán MD [address] [facility], [place] [id number] PCP - General Internal Medicine 03/02/16 Will Hurley [facility] N [facility] [place] [address] Referring Rheumatology 04/09/18 Lulú Ramos, PAULA [address] [place] [address] Poultry Hanger Family Medicine 12/20/21 Senior Benefits Analyst Relationship Specialty Start Date End Date Claudine Durán MD [address] [facility], [place] [id number] PCP - General Internal Medicine 03/02/16 Will Hurley [facility] N [facility] [place] [address] Referring Rheumatology 04/09/18 Ilda Miller RN [address] [place] [address] Poultry Hanger 07/27/22 Senior Benefits Analyst Relationship Specialty Start Date End Date Claudine Durán MD [address] [facility], [place] [address] PCP - General Internal Medicine 03/02/16 Will Hurley [facility] N [facility] [place] [address] Referring Rheumatology 04/09/18 Ilda Miller, RN [address] [place] [place] [address] Poultry Hanger 07/27/22 Senior Benefits Analyst Relationship Specialty Start Date End Date Claudine Durán MD [address] [place] [address] PCP - General Internal Medicine 03/02/16 Will Hurley [address] [facility] [place] [address] Referring Rheumatology 04/09/18 Ilda Miller RN [address] [place] [address] Poultry Hanger 07/27/22 Senior Benefits Analyst Relationship Specialty Start Date End Date Claudine Durán MD [address] [place] [address] PCP - General Internal Medicine 03/02/16 Will Hurley [address] [facility] [place] [address] Referring Rheumatology 04/09/18 Ilda Miller RN [address] [place] [address] Poultry Hanger 07/27/22 Senior Benefits Analyst Relationship Specialty Start Date End Date Claudine Durán MD [address] [place] [address] PCP - General Internal Medicine 03/02/16 Will Hurley [address] [facility] [place] [address] Referring Rheumatology 04/09/18 Ilda Miller RN [address] [place] [address] Poultry Hanger 07/27/22 Senior Benefits Analyst Relationship Specialty Start Date End Date Claudine Durán MD [address] [place] [address] PCP - General Internal Medicine 03/02/16 Will Hurley [address] [facility], [place] [address] Referring Rheumatology 04/09/18 Ilda Miller, RN [address] [place] [address] Poultry Hanger 07/27/22 Senior Benefits Analyst Relationship Specialty Start Date End Date Claudine Durán MD [address] [place], [place] 869531 PCP - General Internal Medicine 03/02/16 Will Hurley [address] [facility] [place], [place] [address] Referring Rheumatology 04/09/18 Ilda Miller, PAULA [address] [place] [address] Poultry Hanger 07/27/22 Senior Benefits Analyst Relationship Specialty Start Date End Date Claudine Durán MD [address] [place], [place] 872401 PCP - General Internal Medicine 03/02/16 Will Hurley [address] [facility] [place] [address] Referring Rheumatology 04/09/18 Ilda Miller RN [address] [place] [address] Poultry Hanger 07/27/22 Senior Benefits Analyst Relationship Specialty Start Date End Date Claudine Durán MD [address] [place] [address] PCP - General Internal Medicine 03/02/16 Will Hurley [address] [facility] [place] [address] Referring Rheumatology 04/09/18 Ilda Miller, RN [address] [place] [address] Poultry Hanger 07/27/22 Senior Benefits Analyst Relationship Specialty Start Date End Date Claudine Durán MD [address] [place] [address] PCP - General Internal Medicine 03/02/16 Will Hurley [address] [facility] [place] [address] Referring Rheumatology 04/09/18 Ilda Miller, RN [address] [place] [address] Poultry Hanger 07/27/22 Senior Benefits Analyst Relationship Specialty Start Date End Date Claudine Durán MD [address] [place] [address] PCP - General Internal Medicine 03/02/16 Will Hurley [address] [facility] [place] [address] Referring Rheumatology 04/09/18 Ilda Miller, PAULA [address] [place] [address] Poultry Hanger 07/27/22 Senior Benefits Analyst Relationship Specialty Start Date End Date Claudine Durán MD [address] [facility], [place] 606[address] PCP - General Internal Medicine 03/02/16 Will Hurley [address] [place] [address] Referring Rheumatology 04/09/18 Ilda Miller, RN [address] [place] [address] Poultry Hanger 07/27/22 Senior Benefits Analyst Relationship Specialty Start Date End Date Claudine Durán MD [address] [place], [place] [address]111 PCP - General Internal Medicine 03/02/16 Will Hurley [address] [facility] [place] [address] Referring Rheumatology 04/09/18 Lulú Ramos, PAULA [address] [place] [address] Poultry Hanger Family Medicine 12/20/2107/26 Senior Benefits Analyst Relationship Specialty Start Date End Date Claudine Durán MD [address] [place], [place] 462551 PCP - General Internal Medicine 03/02/16 Will Hurley [address] [facility] [place] [id number] Referring Rheumatology 04/09/18 Ilda Miller, PAULA [address] [place], [place] [id number] Poultry Hanger 07/27/22 Team Status: Active Member Role Status Dates Dr. Claudine Durán MD Family Provider Active Dr. Claudine Durán MD Primary Care Provider Active Team Status: Inactive Member Role Status Dates Dr. Claudine Durán MD Primary Care Provider Active Dr. Bob Elias DO Emergency Provider Active Senior Benefits Analyst Relationship Specialty Start Date End Date Claudine Durán MD [address] [place] [address] PCP - General Internal Medicine 03/02/16 Will Hurley [address] [place] [address] Referring Rheumatology 04/09/18 Ilda Miller, PAULA [address] [place], [place] [id number] Poultry Hanger 07/27/22 Team Status: Inactive Member Role Status Dates Dr. Claudine Durán MD Primary Care Provider Active Dr. Bob Elias DO Attending Provider, Emergency P ed Active Team Status: Active Member Role Status Dates Dr. Claudine Durán MD Primary Care Provider Active Dr. Martín Cornejo DO Emergency Provider Active Dr. Laine Veras MD Admit Provider, Attending Provid er Active Senior Benefits Analyst Relationship Specialty Start Date End Date Claudine Durán MD [address] [place] [address] PCP - General Internal Medicine 03/02/16 Will Hurley [address] [place] [address] Referring Rheumatology 04/09/18 Ilda Miller, PAULA [address] [place], [place] [address] Poultry Hanger 07/27/22 Lynne Maynard, market researcher Veneer Clipper 03/26/23 Team Status: Active Member Role Status Dates Dr. Claudine Durán MD Primary Care Provider Active Dr. Martín Clemente , DO Emergency Provider Active Dr. Laine [...] Dr. Alisa Mathew MD Attending Provider Active Senior Benefits Analyst Relationship Specialty Start Date End Date Claudine Durán MD [address] [place] [address] PCP - General Internal Medicine 03/02/16 Will Hurley [address] [facility], [place] [address] Referring Rheumatology 04/09/18 Ilda Miller RN [address] [place] [address] Poultry Hanger 07/27/22 Lynne Maynard, market researcher Veneer Clipper 03/26/23 Senior Benefits Analyst Relationship Specialty Start Date End Date Claudine Durán MD [address] [place] [address] PCP - General Internal Medicine 03/02/16 Will Hurley [address] [facility] [place] [address] Referring Rheumatology 04/09/18 Ilda Miller RN [address] [place] [address] Poultry Hanger 07/27/22 Lynne Maynard, market researcher Veneer Clipper 03/26/23 Team Status: Active Member Role Status [...] Dr. Frederick Dick , Other Provider Active Team Status: Active Member [...] , DO Other Provider Active Rosalina Herrera DATABASE ADMIN, DATABASE ADMIN-C Other Provider Active Team Status: Active Member Role Status Dates Dr. Claudine Durán MD Primary Care Provider Active Dr. Martín Cornejo , DO Emergency Provider Active Dr. Laine Veras MD Admit Provider, Other Provider A ctive Dr. Jasmyn Chan , DO Other Provider Active Dr. Alisa Mathew MD Other Provider Active Dr. Naman Mereidth MD Other Provider Active Dr. Lg Rios [...] Agarwal , DO Other Provider Active Rosalina Sharon DATABASE ADMIN, DATABASE ADMIN-C Other Provider Active Team Status: Inactive Member [...] , DO Other Provider Active Rosalina Herrera DATABASE ADMIN, DATABASE ADMIN-C Other Provider Active Team Status: Active Member [...] , DO Other Provider Active Rosalina Herrera DATABASE ADMIN, DATABASE ADMIN-C Other Provider Active Team Status: Active Member [...] MD Admit Provider, Attending Provid er Active Senior Benefits Analyst Relationship Specialty Start Date End Date Claudine Durán MD [address] [place] [address] PCP - General Internal Medicine 03/02/16 Will Hurley [address] [place], [place] 144373 Referring Rheumatology 04/09/18 Ilda Miller RN [address] [place], [place] [id number] Poultry Hanger 07/27/22 Team Status: Active Member Role Status Dates Dr. Claudine Durán MD Primary Care Provider Active Zaynab NOLEN MD Attending Provider Active Team Status: Inactive Member Role Status Dates Dr. Claudine Durán MD Primary Care Provider Active Zaynab NOLEN MD Attending Provider Active Senior Benefits Analyst Relationship Specialty Start Date End Date Claudine Durán MD [address] [place] [address] PCP - General Internal Medicine 03/02/16 Will Hurley [address] [facility], [place] [id number] Referring Rheumatology 04/09/18 Ilda Miller RN [address] [place] [address] Poultry Hanger 07/27/22 Team Status: Inactive Member Role Status Dates Dr. Claudine Durán MD Primary Care Provider Active Fadia Pizarro DATABASE ADMIN, DATABASE ADMIN-C Attending Provider Active Team Status: Inactive Member Role Status Dates Dr. Claudine Durán MD Primary Care Provider Active Dr. Zaynab Pina MD Attending Provider Active Senior Benefits Analyst Relationship Specialty Start Date End Date Claudine Durán MD [address] [place] [address] PCP - General Internal Medicine 03/02/16 Will Hurley [address] [place] [address] Referring Rheumatology 04/09/18 Ilda Miller, PAULA [address] [place] [address] Poultry Hanger 07/27/22 Senior Benefits Analyst Relationship Specialty Start Date End Date Claudine Durán MD [address] [place] [address] PCP - General Internal Medicine 03/02/16 Will Hurley [address] [facility] [address]83 Referring Rheumatology 04/09/18 Ilda Miller RN [address] [place] [address] Poultry Hanger 07/27/22 Senior Benefits Analyst Relationship Specialty Start Date End Date Claudine Durán MD [address] [place], [place] 668981 PCP - General Internal Medicine 03/02/16 Will Hurley [address] [facility] [place] [address]893 Referring Rheumatology 04/09/18 Ilda Miller, PAULA [address] [place] [address] Poultry Hanger 07/27/22 Senior Benefits Analyst Relationship Specialty Start Date End Date Claudine Durán MD [address] [place], [place] 557971 PCP - General Internal Medicine 03/02/16 Will Hurley [address] [facility] [place] [address] Referring Rheumatology 04/09/18 Ilda Miller, RN [address] [place] [address] Poultry Hanger 07/27/22 Senior Benefits Analyst Relationship Specialty Start Date End Date Claudine Durán MD [address] [place], [place] 789221 PCP - General Internal Medicine 03/02/16 Will Hurley [address] [facility] [place] [address] Referring Rheumatology 04/09/18 Ilda Miller RN [address] [place] [address] Poultry Hanger 07/27/22 Senior Benefits Analyst Relationship Specialty Start Date End Date Claudine Durán MD [address] [place] [address] PCP - General Internal Medicine 03/02/16 Will Hurley [address] [facility] [place] [address] Referring Rheumatology 04/09/18 Ilda Miller, PAULA [address] [place] [address] Poultry Hanger 07/27/22 Senior Benefits Analyst Relationship Specialty Start Date End Date Claudine Durán MD [address] [place] [address] PCP - General Internal Medicine 03/02/16 Will Hurley [address] [facility] [place] [address] Referring Rheumatology 04/09/18 Ilda Miller, RN [address] [place] [address] Poultry Hanger 07/27/22 Senior Benefits Analyst Relationship Specialty Start Date End Date Claudine Durán MD [address] [facility], [place] [address]571 PCP - General Internal Medicine 03/02/16 Will Hurley [address] [facility] [place] [address] Referring Rheumatology 04/09/18 Ilda Miller, PAULA [address] [place] [address] Poultry Hanger 07/27/22 Senior Benefits Analyst Relationship Specialty Start Date End Date Claudine Durán MD [address] [place] [address] PCP - General Internal Medicine 03/02/16 Will Hurley [address] [facility] [place] [address] Referring Rheumatology 04/09/18 Ilda Miller, PAULA [address] [place] [address] Poultry Hanger 07/27/22 Senior Benefits Analyst Relationship Specialty Start Date End Date Claudine Durán MD [address] [place] [address] PCP - General Internal Medicine 03/02/16 Will Hurley [address] [facility] [place], [place] [id number] Referring Rheumatology 04/09/18 Ilda Miller, RN [address] [place] [address] Poultry Hanger 07/27/22 Senior Benefits Analyst Relationship Specialty Start Date End Date Claudine Durán MD [address] [facility], [place] 959261 PCP - General Internal Medicine 03/02/16 Will Hurley [address] [facility] [address] Referring Rheumatology 04/09/18 Ilda Miller RN [address] [place] [address] Poultry Hanger 07/27/22 Senior Benefits Analyst Relationship Specialty Start Date End Date Claduine Durán MD [address] [place], [place] 779581 PCP - General Internal Medicine 03/02/16 Will Hurley [address] [facility] [place], [place] [address] Referring Rheumatology 04/09/18 Ilda Miller, PAULA [address] [place] [address] Poultry Hanger 07/27/22 Senior Benefits Analyst Relationship Specialty Start Date End Date Claudine Durán MD [address] [facility], [place] 8[address]071 PCP - General Internal Medicine 03/02/16 Will Hurley [address] [facility] [place] [address] Referring Rheumatology 04/09/18 Ilda Miller, RN [address] [place] [address] Poultry Hanger 07/27/22 Senior Benefits Analyst Relationship Specialty Start Date End Date Claudine Durán MD [address] [place] [address] PCP - General Internal Medicine 03/02/16 Will Hurley [address] [facility] [place] [address] Referring Rheumatology 04/09/18 Ilda Miller RN [address] [place] [address] Poultry Hanger 07/27/22 Senior Benefits Analyst Relationship Specialty Start Date End Date Claudine Durán MD [address] [place] [address] PCP - General Internal Medicine 03/02/16 Will Hurley [address] [facility] [place] [address] Referring Rheumatology 04/09/18 Ilda Miller, PAULA [address] [place] [address] Poultry Hanger 07/27/22 Senior Benefits Analyst Relationship Specialty Start Date End Date Claudine Durán MD [address] [place], [place] 180881 PCP - General Internal Medicine 03/02/16 Will Hurley [address] [facility] [place] [address] Referring Rheumatology 04/09/18 Ilda Miller, PAULA [address] [place] [address] Poultry Hanger 07/27/22 Senior Benefits Analyst Relationship Specialty Start Date End Date Claudine Durán MD [address] [place] [address] PCP - General Internal Medicine 03/02/16 Will Hurley [address] [facility] [place] [address] Referring Rheumatology 04/09/18 Ilda Miller RN [address] [place] [address] Poultry Hanger 07/27/22 Senior Benefits Analyst Relationship Specialty Start Date End Date Claudine Durán MD [address] [place] [address] PCP - General Internal Medicine 03/02/16 Will Hurley [address] [facility] [place] [address] Referring Rheumatology 04/09/18 Ilda Miller RN [address] [place] [address] Poultry Hanger 07/27/22 Senior Benefits Analyst Relationship Specialty Start Date End Date Claudine Durán MD [address] [place] [address] PCP - General Internal Medicine 03/02/16 Will Hurley [address] [facility] [place] [address] Referring Rheumatology 04/09/18 Ilda Miller RN [address] [place] [address] Poultry Hanger 07/27/22 Senior Benefits Analyst Relationship Specialty Start Date End Date Claudine Durán MD [address] [place] [address] PCP - General Internal Medicine 03/02/16 Will Hurley [address] [facility] [place] [address] Referring Rheumatology 04/09/18 Ilda Miller RN [address] [facility] [address] Poultry Hanger 07/27/22 Senior Benefits Analyst Relationship Specialty Start Date End Date Claudine Durán MD [address] [place] [address] PCP - General Internal Medicine 03/02/16 Will Hurley [address] [facility] [place] [address] Referring Rheumatology 04/09/18 Ilda Miller RN [address] [facility] [address] Poultry Hanger 07/27/22 Senior Benefits Analyst Relationship Specialty Start Date End Date Claudine Durán MD [address] [place] [address] PCP - General Internal Medicine 03/02/16 Will Hurley [address] [facility] [place] [address] Referring Rheumatology 04/09/18 Ilda Miller RN [address] [place] [address] Poultry Hanger 07/27/22 Senior Benefits Analyst Relationship Specialty Start Date End Date Claudine Durán MD [address] [place], [place] 335531 PCP - General Internal Medicine 03/02/16 Will Hurley [address] [facility] [place], [place] [address] Referring Rheumatology 04/09/18 Ilda Miller, RN [address] [place] [address] Poultry Hanger 07/27/22 Senior Benefits Analyst Relationship Specialty Start Date End Date Claudine Durán MD [address] [place], [place] 612421 PCP - General Internal Medicine 03/02/16 Will Hurley [address] [facility] [place] [address] Referring Rheumatology 04/09/18 Ilda Miller, PAULA [address] [place] [address] Poultry Hanger 07/27/22 Senior Benefits Analyst Relationship Specialty Start Date End Date Claudine Durán MD [address] [place], [place] 0[address]71 PCP - General Internal Medicine 03/02/16 Will Hurley [address] [facility] [address] Referring Rheumatology 04/09/18 Ilda Miller RN [address] [place] [address] Poultry Hanger 07/27/22 Senior Benefits Analyst Relationship Specialty Start Date End Date Claudine Durán MD [address] [facility], [place] 439791 PCP - General Internal Medicine 03/02/16 Will Hurley [address] [facility] [place], [place] 40[address]43 Referring Rheumatology 04/09/18 Lulú Ramos RN [address] [place] [address] Poultry Hanger Family Medicine 12/20/21 Senior Benefits Analyst Relationship Specialty Start Date End Date Claudine Durán MD [address] [facility] [place] [address] PCP - General Internal Medicine 03/02/16 Will Hurley [address] [facility] [place] [address] Referring Rheumatology 04/09/18 Ilda Miller RN [address] [place] [address] Poultry Hanger 07/27/22 Senior Benefits Analyst Relationship Specialty Start Date End Date Claudine Durán MD [address] [place] [address] PCP - General Internal Medicine 03/02/16 Will Hurley [address] [facility] [place] [address] Referring Rheumatology 04/09/18 Ilda Miller RN [address] [place], [place] 1085531 Poultry Hanger 07/27/22 Senior Benefits Analyst Relationship Specialty Start Date End Date Claudine Durán MD [address] [place] [address] PCP - General Internal Medicine 03/02/16 Will Hurley [address] [facility] [place] [address] Referring Rheumatology 04/09/18 Ilda Miller, PAULA [address] [place] [address] Poultry Hanger 07/27/22 Senior Benefits Analyst Relationship Specialty Start Date End Date Claudine Durán MD [address] [place] [address] PCP - General Internal Medicine 03/02/16 Will Hurley [address] [facility] [place] [address] Referring Rheumatology 04/09/18 Ilda Miller, PAULA [address] [place] [address] Poultry Hanger 07/27/22 Senior Benefits Analyst Relationship Specialty Start Date End Date Claudine Durán MD [address] [place] [address] PCP - General Internal Medicine 03/02/16 Will Hurley [address] [facility] [place] [address] Referring Rheumatology 04/09/18 Ilda Miller RN [address] [place] [address] Poultry Hanger 07/27/22 Senior Benefits Analyst Relationship Specialty Start Date End Date Claudine Durán MD [address] [place] [address] PCP - General Internal Medicine 03/02/16 Will Hurley [address] [facility] [place] [place] [address] Referring Rheumatology 04/09/18 Ilda Miller, PAULA [address] [place], [place] 3426731 Poultry Hanger 07/27/22 [address] MAGISTRATE [address] [place] [address] Milling/Polishing Operator Internal Medicine 01/28/24 Twyla Cuevas APRN.DIE PRESSER [address] [place] [address] Milling/Polishing Operator Internal Medicine 01/28/24 Senior Benefits Analyst Relationship Specialty Start Date End Date Claudine Durán MD [address] [place] [address] PCP - General Internal Medicine 03/02/16 Will Hurley [address] [facility] [place] [address] Referring Rheumatology 04/09/18 Ilda Miller, PAULA [address] [place] [address] Poultry Hanger 07/27/[address] MAGISTRATE [address] [place] [address] Milling/Polishing Operator Internal Medicine 01/28/24 Twyla Cuevas APRN.DIE PRESSER [address] [place] [address] Milling/Polishing Operator Internal Medicine 01/28/24 Senior Benefits Analyst Relationship Specialty Start Date End Date Claudine Durán MD [address] [place] [address] PCP - General Internal Medicine 03/02/16 Will Hurley [address] [place] [address] Referring Rheumatology 04/09/[address] MAGISTRATE [address] [place] [address] Milling/Polishing Operator Internal Medicine 01/28/24 Twyla Cuevas APRN.DIE PRESSER [address] [place] [address] Milling/Polishing Operator Internal Medicine 01/28/24 Senior Benefits Analyst Relationship Specialty Start Date End Date Claudine Durán MD [address] [place] [address] PCP - General Internal Medicine 03/02/16 Will Hurley [address] [place] [address] Referring Rheumatology 04/09/[address] MAGISTRATE [address] [place] [address] Milling/Polishing Operator Internal Medicine 01/28/24 Twyla Cuevas APRN.DIE PRESSER [address] [place] [address] Milling/Polishing Operator Internal Medicine 01/28/24 Senior Benefits Analyst Relationship Specialty Start Date End Date Claudine Durán MD [address] [place] [address] PCP - General Internal Medicine 03/02/16 Will Hurley [address] [place] [address] Referring Rheumatology 04/09/18 Jimbo Swanson, PRINTED CIRCUIT BOARDS STRIPPER ETCHER.MUNICIPAL COURT MAGISTRATE [address] [place] [address] Milling/Polishing Operator Internal Medicine 01/28/24 Twyla Cuevas PRINTED CIRCUIT BOARDS STRIPPER ETCHER.DIE PRESSER [address] [place] [address] Milling/Polishing Operator Internal Medicine 01/28/24 Senior Benefits Analyst Relationship Specialty Start Date End Date Claudine Durán MD [address] [place] [address] PCP - General Internal Medicine 03/02/16 Will Hurley [address] [place] [address] Referring Rheumatology 04/09/18 Jimbo Swanson, PRINTED CIRCUIT BOARDS STRIPPER ETCHER.MUNICIPAL COURT MAGISTRATE [address] [place] [address] Milling/Polishing Operator Internal Medicine 01/28/24 Twyla Cuevas PRINTED CIRCUIT BOARDS STRIPPER ETCHER.DIE PRESSER [address] [place] [address] Milling/Polishing Operator Internal Medicine 01/28/24 Senior Benefits Analyst Relationship Specialty Start Date End Date Claudine Durán MD [address] [place] [address] PCP - General Internal Medicine 03/02/16 Will Hurley [address] [facility] [place] [address] Referring Rheumatology 04/09/18 Jimbo Swanson, PRINTED CIRCUIT BOARDS STRIPPER ETCHER.MUNICIPAL COURT MAGISTRATE [address] [place] [address] Milling/Polishing Operator Internal Medicine 01/28/24 Twyla Cuevas PRINTED CIRCUIT BOARDS STRIPPER ETCHER.DIE PRESSER [address] [place] [address] Milling/Polishing Operator Internal Medicine 01/28/24 Senior Benefits Analyst Relationship Specialty Start Date End Date Claudine Durán MD [address] [place] [address] PCP - General Internal Medicine 03/02/16 Will Hurley [address] [facility] [place] [address] Referring Rheumatology 04/09/18 Jimbo Swanson, PRINTED CIRCUIT BOARDS STRIPPER ETCHER.MUNICIPAL COURT MAGISTRATE [address] [place] [address] Milling/Polishing Operator Internal Medicine 01/28/24 Twyla Cuevas APRN.DIE PRESSER [address] [place] [address] Milling/Polishing Operator Internal Medicine 01/28/24 Senior Benefits Analyst Relationship Specialty Start Date End Date Claudine Durán MD [address] [place] [address] PCP - General Internal Medicine 03/02/16 Will Hurley [address] [place] [address] Referring Rheumatology 04/09/18 Jimbo Swanson, CONNIE.MUNICIPAL COURT MAGISTRATE [address] [place] [address] Milling/Polishing Operator Internal Medicine 01/28/24 Twyla Cuevas APRN.DIE PRESSER [address] [place] [address] Milling/Polishing Operator Internal Medicine 01/28/24 Senior Benefits Analyst Relationship Specialty Start Date End Date Claudine Durán MD [address] [place] [address] PCP - General Internal Medicine 03/02/16 Will Hurley [address] [place] [address] Referring Rheumatology 04/09/18 Jimbo Swanson, PRINTED CIRCUIT BOARDS STRIPPER ETCHER.MUNICIPAL COURT MAGISTRATE [address] [place] [address] Milling/Polishing Operator Internal Medicine 01/28/24 Twyla Cuevas APRN.DIE PRESSER [address] [place] [address] Milling/Polishing Operator Internal Medicine 01/28/24 Senior Benefits Analyst Relationship Specialty Start Date End Date Claudine Durán MD [address] [place] [address] PCP - General Internal Medicine 03/02/16 Will Hurley [address] [place] [facility] [place] [address]373 Referring Rheumatology 04/09/18 Jimbo Swanson, PRINTED CIRCUIT BOARDS STRIPPER ETCHER.MUNICIPAL COURT MAGISTRATE [address] [place], [place] 377951 Milling/Polishing Operator Internal Medicine 01/28/24 Twyla Cuevas PRINTED CIRCUIT BOARDS STRIPPER ETCHER.DIE PRESSER [address] [place] [address] [facility] Internal Medicine 01/28/24 Senior Benefits Analyst Relationship Specialty Start Date End Date Claudine Durán MD [address] [place] [address] PCP - General Internal Medicine 03/02/16 Will Hurley [address] [place] [address] Referring Rheumatology 04/09/18 Jimbo Swanson, PRINTED CIRCUIT BOARDS STRIPPER ETCHER.MUNICIPAL COURT MAGISTRATE [address] [place] [address] Milling/Polishing Operator Internal Medicine 01/28/24 Twyla Cuevas PRINTED CIRCUIT BOARDS STRIPPER ETCHER.DIE PRESSER [address] [place] [address] [facility] Internal Medicine 01/28/24 Senior Benefits Analyst Relationship Specialty Start Date End Date Claudine Durán MD [address] [place] [address] PCP - General Internal Medicine 03/02/16 Will Hurley [address] [facility] [address] Referring Rheumatology 04/09/18 Jimbo Swanson, CONNIE.MUNICIPAL COURT MAGISTRATE [address] [place] [address] Milling/Polishing Operator Internal Medicine 01/28/24 Twyla Cuevas PRINTED CIRCUIT BOARDS STRIPPER ETCHER.DIE PRESSER [address] [place] [address] Milling/Polishing Operator Internal Medicine 01/28/24 Senior Benefits Analyst Relationship Specialty Start Date End Date Claudine Durán MD [address] [place] [address] PCP - General Internal Medicine 03/02/16 Will Hurley [address] [facility] [place] [address] Referring Rheumatology 04/09/18 Jimbo Swanson, PRINTED CIRCUIT BOARDS STRIPPER ETCHER.MUNICIPAL COURT MAGISTRATE [address] [place] [address] Milling/Polishing Operator Internal Medicine 01/28/24 Twyla Cuevas PRINTED CIRCUIT BOARDS STRIPPER ETCHER.DIE PRESSER [address] [place] [address] Milling/Polishing Operator Internal Medicine 01/28/24 Senior Benefits Analyst Relationship Specialty Start Date End Date Claudine Durán MD [address] [place] [address] PCP - General Internal Medicine 03/02/16 Will Hurley [address] [place] [address] Referring Rheumatology 04/09/18 Jimbo Sw[address] MAGISTRATE [address] [place] [address] Milling/Polishing Operator Internal Medicine 01/28/24 Twyla Cuevas APRN.DIE PRESSER [address] [place] [address] Milling/Polishing Operator Internal Medicine 01/28/24 Senior Benefits Analyst Relationship Specialty Start Date End Date Claudine Durán MD [address] [place] [address] PCP - General Internal Medicine 03/02/16 Will Hurley [address] [place] [address] Referring Rheumatology 04/09/18 Jimbo Swanson, PRINTED CIRCUIT BOARDS STRIPPER ETCHER.MUNICIPAL COURT MAGISTRATE [address] [place] [address] Milling/Polishing Operator Internal Medicine 01/28/24 Twyla Cuevas APRN.DIE PRESSER [address] [place] [address] Milling/Polishing Operator Internal Medicine 01/28/24 Senior Benefits Analyst Relationship Specialty Start Date End Date Claudine Durán MD [address] [place], [place] 695011 PCP - General Internal Medicine 03/02/16 Will Hurley [address] [place] [address] Referring Rheumatology 04/09/18 Jimbo Swanson, PRINTED CIRCUIT BOARDS STRIPPER ETCHER.MUNICIPAL COURT MAGISTRATE [address] [place] [address] [facility] Internal Medicine 01/28/24 Twyla Cuevas PRINTED CIRCUIT BOARDS STRIPPER ETCHER.DIE PRESSER [address] [place], [place] 465001 [facility] Internal Medicine 01/28/24 Senior Benefits Analyst Relationship Specialty Start Date End Date Claudine Durán MD [address] [place], [place] 615281 PCP - General Internal Medicine 03/02/16 Will Hurley [address] [place] [address] Referring Rheumatology 04/09/18 Jimbo Swanson, PRINTED CIRCUIT BOARDS STRIPPER ETCHER.MUNICIPAL COURT MAGISTRATE [address] [place] [address] [facility] Internal Medicine 01/28/24 Twyla Cuevas PRINTED CIRCUIT BOARDS STRIPPER ETCHER.DIE PRESSER [address] [place] [address] [facility] Internal Medicine 01/28/24 Bartolome Francis MD [address] [place] [address] Surgeon Cardiac Surg 04/02/24 Juvencio Saeed MD [address] [place], [place] 7975195 Primary Staff Physician Cardiology 04/02/24 Senior Benefits Analyst Relationship Specialty Start Date End Date Claudine Durán MD [address] [place], [place] 411141 PCP - General Internal Medicine 03/02/16 Will Hurley [address] [place] [facility] [place] 57[address]53 Referring Rheumatology 04/09/18 Jimbo Swanson, PRINTED CIRCUIT BOARDS STRIPPER ETCHER.MUNICIPAL COURT MAGISTRATE [address] [place], [place] 971281 Milling/Polishing Operator Internal Medicine 01/28/24 Twyla Cuevas PRINTED CIRCUIT BOARDS STRIPPER ETCHER.DIE PRESSER [address] [place], [place] 213831 Milling/Polishing Operator Internal Medicine 01/28/24 Bartolome Francis MD [address] [place], [place] [id number] Surgeon Cardiac Surg 04/02/24 Juvencio Saeed MD [address] [place], [place] [id number] Primary Staff Physician Cardiology 04/02/24 Senior Benefits Analyst Relationship Specialty Start Date End Date Claudine Durán MD [address] [place], [place] 348321 PCP - General Internal Medicine 03/02/16 Will Hurley [address] [facility] 2[address]23 Referring Rheumatology 04/09/18 Jimbo Swanson, PRINTED CIRCUIT BOARDS STRIPPER ETCHER.MUNICIPAL COURT MAGISTRATE [address] [place], [place] 360211 Milling/Polishing Operator Internal Medicine 01/28/24 Twyla Cuevas PRINTED CIRCUIT BOARDS STRIPPER ETCHER.DIE PRESSER [address] [place] [address] [facility] Internal Medicine 01/28/24 Bartolome Francis MD [address] [place], [place] 9595295 Surgeon Cardiac Surg 04/02/24 Juvencio Saeed MD [address] [place], [place] 0930795 Primary Staff Physician Cardiology 04/02/24 Senior Benefits Analyst Relationship Specialty Start Date End Date Claudine Durán [place] [address] [place] [address] PCP - General Internal Medicine 03/02/16 Will Hurley [address] [place] [address] Referring Rheumatology 04/09/[address] MAGISTRATE [address] [place] [address] [facility] Internal Medicine 01/28/24 Twyla Cuevas APRN.DIE PRESSER [address] [place] [address] [facility] Internal Medicine 01/28/24 Bartolome Francis MD [address] [place], [place] 6353995 Surgeon Cardiac Surg 04/02/24 Juvencio Saeed MD [address] [place], [place] 5163595 Primary Staff Physician Cardiology 04/02/24 Senior Benefits Analyst Relationship Specialty Start Date End Date Claudine Durán MD [address] [place], [place] 119741 PCP - General Internal Medicine 03/02/16 Will Hurley [address] [place], [place] [id number] Referring Rheumatology 04/09/[address] MAGISTRATE [address] [place], [place] [id number] [facility] Internal Medicine 01/28/24 Twyla Cuevas APRN.DIE PRESSER [address] [place], [place] [id number] [facility] Internal Medicine 01/28/24 Bartolome Francis MD [address] [place], [place] [id number] Surgeon Cardiac Surg 04/02/24 Juvencio Saeed MD [address] [place], [place] 7423095 Primary Staff Physician Cardiology 04/02/24 Pili Benitez, market researcherPoultry Hanger 04/11/24 Senior Benefits Analyst Relationship Specialty Start Date End Date Claudine Durán MD [address] [place], [place] 429811 PCP - General Internal Medicine 03/02/16 Will Hurley [address] [place], [place] 363993 Referring Rheumatology 04/09/18 Jimbo Swanson, CONNIE.MUNICIPAL COURT MAGISTRATE [address] [place] [address] Milling/Polishing Operator Internal Medicine 01/28/24 Twyla Cuevas APRN.DIE PRESSER [address] [place] [address] Milling/Polishing Operator Internal Medicine 01/28/24 Bartolome Francis MD [address] [place], [place] [id number] Surgeon Cardiac Surg 04/02/24 Juvencio Saeed MD [address] [place], [place] [id number] Primary Staff Physician Cardiology 04/02/24 Pili Benitez, market researcherPoultry Hanger 04/11/24 Senior Benefits Analyst Relationship Specialty Start Date End Date Claudine Durán MD [address] [place] [address] PCP - General Internal Medicine 03/02/16 Will Hurley [address] [place], [place] 602163 Referring Rheumatology 04/09/18 Jimbo Swanson, PRINTED CIRCUIT BOARDS STRIPPER ETCHER.MUNICIPAL COURT MAGISTRATE [address] [place] [address] [facility] Internal Medicine 01/28/24 Twyla Cuevas APRN.DIE PRESSER [address] [place] [address] Milling/Polishing Operator Internal Medicine 01/28/24 Bartolome Francis MD [address] [place] [address] Surgeon Cardiac Surg 04/02/24 Juvencio Saeed MD [address] [place], [place] [id number] Primary Staff Physician Cardiology 04/02/24 Pili Benitez, market researcherPoultry Hanger 04/11/24 Senior Benefits Analyst Relationship Specialty Start Date End Date Claudine Durán MD [address] [place] [address] PCP - General Internal Medicine 03/02/16 Will Hurley [address] [place] [address] Referring Rheumatology 04/09/18 Jimbo Swanson, CONNIE.MUNICIPAL COURT MAGISTRATE [address] [place] [address] Milling/Polishing Operator Internal Medicine 01/28/24 Twyla Cuevas APRN.DIE PRESSER [address] [place] [address] Milling/Polishing Operator Internal Medicine 01/28/24 Bartolome Francis MD [address] [facility] [place] [address] Surgeon Cardiac Surg 04/02/24 Juvencio Saeed MD [address] [place] [address] Primary Staff Physician Cardiology 04/02/24 Pili Benitez, market researcherPoultry Hanger 04/11/24 Senior Benefits Analyst Relationship Specialty Start Date End Date Claudine Durán MD [address] [place] [address] PCP - General Internal Medicine 03/02/16 Will Hurley [address] [place] [address] Referring Rheumatology 04/09/18 Jimbo Swanson, PRINTED CIRCUIT BOARDS STRIPPER ETCHER.MUNICIPAL COURT MAGISTRATE [address] [place], [place] 416271 Milling/Polishing Operator Internal Medicine 01/28/24 Twyla Cuevas PRINTED CIRCUIT BOARDS STRIPPER ETCHER.DIE PRESSER [address] [place], [place] 858871 Milling/Polishing Operator Internal Medicine 01/28/24 Bartolome Francis MD [address] [place], [place] 9773595 Surgeon Cardiac Surg 04/02/24 Juvencio Saeed MD [address] [place], [place] 1155795 Primary Staff Physician Cardiology 04/02/24 Pili Benitez, market researcherPoultry Hanger 04/11/24 Senior Benefits Analyst Relationship Specialty Start Date End Date Claudine Durán MD [address] [facility] [place] [address]561 PCP - General Internal Medicine 03/02/16 Will Hurley [address] [place] [address] Referring Rheumatology 04/09/18 Jimbo Swanson, PRINTED CIRCUIT BOARDS STRIPPER ETCHER.MUNICIPAL COURT MAGISTRATE [address] [place], [place] 173011 [facility] Internal Medicine 01/28/24 Twyla Cuevas APRN.DIE PRESSER [address] [place] [address] [facility] Internal Medicine 01/28/24 Bartolome Francis MD [address] [place], [place] 0280795 Surgeon Cardiac Surg 04/02/24 Juvencio Saeed MD [address] [place], [place] 7954495 Primary Staff Physician Cardiology 04/02/24 Pili Benitez, market researcherPoultry Hanger 04/11/24 Senior Benefits Analyst Relationship Specialty Start Date End Date Claudine Durán MD [address] [place] [address] PCP - General Internal Medicine 03/02/16 Will Hurley [address] [place], [place] 5[address]3 Referring Rheumatology 04/09/18 [address] MAGISTRATE [address] [place] [address] [facility] Internal Medicine 01/28/24 Twyla Cuevas APRN.DIE PRESSER [address] [place] [address] [facility] Internal Medicine 01/28/24 Bartolome Francis MD [address] [place] [address] Surgeon Cardiac Surg 04/02/24 Juvencio Saeed MD [address] [place] [address] Primary Staff Physician Cardiology 04/02/24 Pili Benitez, market researcherPoultry Hanger 04/11/24 Senior Benefits Analyst Relationship Specialty Start Date End Date Claudine Durán MD [address] [place] [address] PCP - General Internal Medicine 03/02/16 Will Hurley [address] [place] [address] Referring Rheumatology 04/09/18 Jimbo Swanson, PRINTED CIRCUIT BOARDS STRIPPER ETCHER.MUNICIPAL COURT MAGISTRATE [address] [place], [place] 487591 Milling/Polishing Operator Internal Medicine 01/28/24 Twyla Cuevas, PRINTED CIRCUIT BOARDS STRIPPER ETCHER.DIE PRESSER [address] [place] [address] Milling/Polishing Operator Internal Medicine 01/28/24 Bartolome Francis MD [address] [facility] [place], [place] 5194695 Surgeon Cardiac Surg 04/02/24 Juvencio Saeed MD [address] [facility] [place], [place] 3552095 Primary Staff Physician Cardiology 04/02/24 Pili Benitez, market researcherPoultry Hanger 04/11/24 Senior Benefits Analyst Relationship Specialty Start Date End Date Claudine Durán MD [address] [place] [address] PCP - General Internal Medicine 03/02/16 Will Hurley [address] [facility] [place] [place] [address] Referring Rheumatology 04/09/[address] MAGISTRATE [address] [place] [address] Milling/Polishing Operator Internal Medicine 01/28/24 Twyla Cuevas APRN.DIE PRESSER [address] [place] [address] Milling/Polishing Operator Internal Medicine 01/28/24 Bartolome Francis MD [address] [place], [place] [id number] Surgeon Cardiac Surg 04/02/24 Juvencio Saeed MD [address] [place], [place] 1531495 Primary Staff Physician Cardiology 04/02/24 Pili Benitez, market researcherPoultry Hanger 04/11/24 Senior Benefits Analyst Relationship Specialty Start Date End Date Claudine Durán MD [address] [place] [address] PCP - General Internal Medicine 03/02/16 Will Hurley [address] [facility] [place] [address] Referring Rheumatology 04/09/[address] MAGISTRATE [address] [place] [address] Milling/Polishing Operator Internal Medicine 01/28/24 Twyla Cuevas APRN.DIE PRESSER [address] [place] [address] Milling/Polishing Operator Internal Medicine 01/28/24 Bartolome Francis MD [address] [place] [address] Surgeon Cardiac Surg 04/02/24 Juvencio Saeed MD [address] [place] [address] Primary Staff Physician Cardiology 04/02/24 Pili Benitez, market researcherPoultry Hanger 04/11/24 Pili Benitez, market researcher Veneer Clipper 05/05/24 Senior Benefits Analyst Relationship Specialty Start Date End Date Claudine Durán MD [address] [place] [address] PCP - General Internal Medicine 03/02/16 Will Hurley [address] [place], [place] 002503 Referring Rheumatology 04/09/[address] MAGISTRATE [address] [place] [address] [facility] Internal Medicine 01/28/24 Twyla Cuevas APRN.DIE PRESSER [address] [place] [address] Milling/Polishing Operator Internal Medicine 01/28/24 Bartolome Francis MD [address] [place] [address] Surgeon Cardiac Surg 04/02/24 Juvencio Saeed MD [address] [place] [address] Primary Staff Physician Cardiology 04/02/24 Pili Benitez, market researcherPoultry Hanger 04/11/24 Pili Benitez, market researcher Veneer Clipper 05/05/24 Senior Benefits Analyst Relationship Specialty Start Date End Date Claudine Durán MD [address] [place], [place] 321351 PCP - General Internal Medicine 03/02/16 Will Hurley [address] [place] [address] Referring Rheumatology 04/09/[address] MAGISTRATE [address] [place], [place] 155081 Milling/Polishing Operator Internal Medicine 01/28/24 Twyla Cuevas APRN.DIE PRESSER [address] [place], [place] 731251 Milling/Polishing Operator Internal Medicine 01/28/24 Bartolome Francis MD [address] [place], [place] 3623495 Surgeon Cardiac Surg 04/02/24 Juvencio Saeed MD [address] [place], [place] 9744195 Primary Staff Physician Cardiology 04/02/24 Pili Benitez, market researcherPoultry Hanger 04/11/24 Senior Benefits Analyst Relationship Specialty Start Date End Date Claudine Durán MD [address] [place] [address] PCP - General Internal Medicine 03/02/16 Will Hurley [address] [place] [address] Referring Rheumatology 04/09/18 Jimbo Swanson, CONNIE.MUNICIPAL COURT MAGISTRATE [address] [place], [place] 480[address]31 Milling/Polishing Operator Internal Medicine 01/28/24 Twyla Cuevas APRN.DIE PRESSER [address] [facility], [place] 872411 [facility] Internal Medicine 01/28/24 05/09/24 Bartolome Francis MD [address] [place], [place] 8528795 Surgeon Cardiac Surg 04/02/24 Juvencio Saeed MD [address] [place], [place] [id number] Primary Staff Physician Cardiology 04/02/24 Pili Benitez, market researcherPoultry Hanger 04/11/24 Pili Benitez, market researcher Veneer Clipper 05/05/24 Senior Benefits Analyst Relationship Specialty Start Date End Date Claudine Durán MD [address] [place], [place] 192921 PCP - General Internal Medicine 03/02/16 Will Hurley [address] [facility] [place] [place] [address] Referring Rheumatology 04/09/18 Jimbo Swanson, CONNIE.MUNICIPAL COURT MAGISTRATE [address] [facility], [place] 051321 Milling/Polishing Operator Internal Medicine 01/28/24 Bartolome Francis MD [address] [place] [address] Surgeon Cardiac Surg 04/02/24 Juvencio Saeed MD [address] [place] [address] Primary Staff Physician Cardiology 04/02/24 Pili Benitez, market researcherPoultry Hanger 04/11/24 Pili Benitez, market researcher Veneer Clipper 05/05/24 Senior Benefits Analyst Relationship Specialty Start Date End Date Claudine Durán MD [address] [place], [place] 894301 PCP - General Internal Medicine 03/02/16 Will Hurley [address] [place], [place] 188993 Referring Rheumatology 04/09/18 Jimbo Swanson, CONNIE.MUNICIPAL COURT MAGISTRATE [address] [place], [place] 48159691 Milling/Polishing Operator Internal Medicine 01/28/24 Bartolome Francis MD [address] [place] [address] Surgeon Cardiac Surg 04/02/24 Juvencio Saeed MD [address] [place] [address] Primary Staff Physician Cardiology 04/02/24 Pili Benitez, market researcherPoultry Hanger 04/11/24 Pili Benitez, market researcher Veneer Clipper 05/05/24 Twyla Cuevas, PRINTED CIRCUIT BOARDS STRIPPER ETCHER.DIE PRESSER [address] [place], [place] 566421 Milling/Polishing Operator Internal Medicine 05/13/24 Senior Benefits Analyst Relationship Specialty Start Date End Date Claudine Durán MD [address] [place], [place] 419841 PCP - General Internal Medicine 03/02/16 Will Hurley [address] [place] [address] Referring Rheumatology 04/09/18 Jimbo Swanson, PRINTED CIRCUIT BOARDS STRIPPER ETCHER.MUNICIPAL COURT MAGISTRATE [address] [place], [place] 178361 Milling/Polishing Operator Internal Medicine 01/28/24 Bartolome Francis MD [address] [place], [place] 7345695 Surgeon Cardiac Surg 04/02/24 Juvencio Saeed MD [address] [place], [place] 6575695 Primary Staff Physician Cardiology 04/02/24 Pili Benitez, market researcherPoultry Hanger 04/11/24 Pili Benitez, market researcher Veneer Clipper 05/05/24 Twyla Cuevas, PRINTED CIRCUIT BOARDS STRIPPER ETCHER.DIE PRESSER [address] [place] [address] Milling/Polishing Operator Internal Medicine 05/13/24 Senior Benefits Analyst Relationship Specialty Start Date End Date Claudine Durán MD [address] [place], [place] 908571 PCP - General Internal Medicine 03/02/16 Will Hurley [address] [facility] [place] [address] Referring Rheumatology 04/09/18 Jimbo Swanson, PRINTED CIRCUIT BOARDS STRIPPER ETCHER.MUNICIPAL COURT MAGISTRATE [address] [place] [address] Milling/Polishing Operator Internal Medicine 01/28/24 Bartolome Francis MD [address] [facility] [place], [place] 6884295 Surgeon Cardiac Surg 04/02/24 Juvencio Saeed MD [address] [place], [place] 4389695 Primary Staff Physician Cardiology 04/02/24 Pili Benitez, market researcherPoultry Hanger 04/11/24 Pili Benitez, market researcher Veneer Clipper 05/05/24 Twyla Cuevas, PRINTED CIRCUIT BOARDS STRIPPER ETCHER.DIE PRESSER [address] [place] [address] [facility] Internal Medicine 05/13/24 Senior Benefits Analyst Relationship Specialty Start Date End Date Claudine Durán MD [address] [place], [place] 130901 PCP - General Internal Medicine 03/02/16 Will Hurley [address] [place], [place] 162603 Referring Rheumatology 04/09/18 Jimbo Swanson, PRINTED CIRCUIT BOARDS STRIPPER ETCHER.MUNICIPAL COURT MAGISTRATE [address] [place] [address] [facility] Internal Medicine 01/28/24 Bartolome Francis MD [address] [facility] [place], [place] 6928295 Surgeon Cardiac Surg 04/02/24 Juvencio Saeed MD [address] [place] [address] Primary Staff Physician Cardiology 04/02/24 Pili Benitez, market researcherPoultry Hanger 04/11/24 Pili Benitez, market researcher Veneer Clipper 05/05/24 Twyla Cuevas PRINTED CIRCUIT BOARDS STRIPPER ETCHER.DIE PRESSER [address] [place], [place] 945151 Milling/Polishing Operator Internal Medicine 05/13/24 Team Status: Active [...] Referring Provider Active Start: Ap ril 2024 Senior Benefits Analyst Relationship Specialty Start Date End Date Claudine Durán MD [address] [place], [place] 257001 PCP - General Internal Medicine 03/02/16 Will Hurley [address] [facility] 350573 Referring Rheumatology 04/09/18 iJmbo Swanosn, CONNIE.MUNICIPAL COURT MAGISTRATE [address] [facility] [place] [id number] Milling/Polishing Operator Internal Medicine 01/28/24 Bartolome Francis MD [address] [place], [place] 1837995 Surgeon Cardiac Surg 04/02/24 Juvencio Saeed MD [address] [place], [place] 9080695 Primary Staff Physician Cardiology 04/02/24 Pili Benitez, market researcherPoultry Hanger 04/11/24 Twyla Cuevas PRINTED CIRCUIT BOARDS STRIPPER ETCHER.DIE PRESSER [address] [place] [address] Milling/Polishing Operator Internal Medicine 05/13/24 Senior Benefits Analyst Relationship Specialty Start Date End Date Claudine Durán MD [address] [place] [address] PCP - General Internal Medicine 03/02/16 Will Hurley [address] [place] [address] Referring Rheumatology 04/09/18 Jimbo [address] MAGISTRATE [address] [place] [address] Milling/Polishing Operator Internal Medicine 01/28/24 Bartolome Francis MD [address] [facility] [place] [address] Surgeon Cardiac Surg 04/02/24 Juvencio Saeed MD [address] [facility] [place], [place] 9473495 Primary Staff Physician Cardiology 04/02/24 Pili Beintez, market researcherPoultry Hanger 04/11/24 Twyla Cuevas PRINTED CIRCUIT BOARDS STRIPPER ETCHER.DIE PRESSER [address] [place] [address] Milling/Polishing Operator Internal Medicine 05/13/24 Senior Benefits Analyst Relationship Specialty Start Date End Date Claudine Durán MD [address] [place] [address] PCP - General Internal Medicine 03/02/16 Will Hurley [address] [place] [address] Referring Rheumatology 04/09/18 Jimbo Swanson, PRINTED CIRCUIT BOARDS STRIPPER ETCHER.MUNICIPAL COURT MAGISTRATE [address] [place] [address] Milling/Polishing Operator Internal Medicine 01/28/24 Bartolome Francis MD [address] [place], [place] 5669795 Surgeon Cardiac Surg 04/02/24 Juvencio Saeed MD [address] [place], [place] 0147395 Primary Staff Physician Cardiology 04/02/24 Pili Benitez, market researcherPoultry Hanger 04/11/24 Twyla Cuevas, PRINTED CIRCUIT BOARDS STRIPPER ETCHER.DIE PRESSER [address] [place] [address] Milling/Polishing Operator Internal Medicine 05/13/24 Senior Benefits Analyst Relationship Specialty Start Date End Date Claudine Durán MD [address] [place], [place] 902381 PCP - General Internal Medicine 03/02/16 Will Hurley [address] [facility] [place] [address] Referring Rheumatology 04/09/18 Jimbo Swanson, PRINTED CIRCUIT BOARDS STRIPPER ETCHER.MUNICIPAL COURT MAGISTRATE [address] [place], [place] 373931 Milling/Polishing Operator Internal Medicine 01/28/24 Bartolome Francis MD [address] [place], [place] 4469295 Surgeon Cardiac Surg 04/02/24 Juvencio Saeed MD [address] [place], [place] 7917495 Primary Staff Physician Cardiology 04/02/24 Pili Benitez, market researcherPoultry Hanger 04/11/24 Twyla Cuevas PRINTED CIRCUIT BOARDS STRIPPER ETCHER.DIE PRESSER [address] [place], [place] 464721 [facility] Internal Medicine 05/13/24 Senior Benefits Analyst Relationship Specialty Start Date End Date Claudine Durán MD [address] [place], [place] 331231 PCP - General Internal Medicine 03/02/16 Will Hurley [address] [place], [place] 507423 Referring Rheumatology 04/09/18 Jimbo Swanson, PRINTED CIRCUIT BOARDS STRIPPER ETCHER.MUNICIPAL COURT MAGISTRATE [address] [place] [address] Milling/Polishing Operator Internal Medicine 01/28/24 Bartolome Francis MD [address] [place] [address] Surgeon Cardiac Surg 04/02/24 Juvencio Saeed MD [address] [place] [address] Primary Staff Physician Cardiology 04/02/24 Pili Benitez, market researcherPoultry Hanger 04/11/24 Twyla Cuevas APRN.DIE PRESSER [address] [place], [place] 378371 Milling/Polishing Operator Internal Medicine 05/13/24 Team Status: Inactive Member Role Status Dates Dr. Claudine Durán MD Primary Care Provider Active Start: June 18, 2024 End: June 18, 2024 CHRISTOPHE LOWRY Attending Provider Active Start: Ap [facility] 2024 End: June 18, 2024 CHRISTOPHE LOWRY Referring Provider Active Start: Ap [facility] 2024 End: June 18, 2024 Team Status: [...] Yaima y 2024 End: July 19, 2024 Senior Benefits Analyst Relationship Specialty Start Date End Date Claudine Durán MD [address] [facility] [place] [address] PCP - General Internal Medicine 03/02/16 Will Hurley [address] [place] [address] Referring Rheumatology 04/09/18 Bartolome Francsi MD [address] [place], [place] 7213695 Surgeon Cardiac Surg 04/02/24 Juvencio Saeed MD [address] [place], [place] [id number] Primary Staff Physician Cardiology 04/02/24 Twyla Cuevas APRN.DIE PRESSER [address] [place] [address] Milling/Polishing Operator Internal Medicine 05/13/24 [address] MAGISTRATE [address] [place] [address] Milling/Polishing Operator Internal Medicine 07/09/24 Senior Benefits Analyst Relationship Specialty Start Date End Date Claudine Durán MD [address] [place] [address] PCP - General Internal Medicine 03/02/16 Will Hurley [address] [place] [address] Referring Rheumatology 04/09/18 Bartolome Francis MD [address] [place] [address] Surgeon Cardiac Surg 04/02/24 Juvencio Saeed MD [address] [place] [address] Primary Staff Physician Cardiology 04/02/24 Twyla Cuevas, PRINTED CIRCUIT BOARDS STRIPPER ETCHER.DIE PRESSER [address] [place] [address] Milling/Polishing Operator Internal Medicine 05/13/24 Jimbo Swanson, PRINTED CIRCUIT BOARDS STRIPPER ETCHER.MUNICIPAL COURT MAGISTRATE [address] [place] [address] Milling/Polishing Operator Internal Medicine 07/09/24 Senior Benefits Analyst Relationship Specialty Start Date End Date Claudine Durán MD [address] [place] [address] PCP - General Internal Medicine 03/02/16 Will Hurley [address] [place] [address] Referring Rheumatology 04/09/18 Bartolome Francis MD [address] [place], [place] [id number] Surgeon Cardiac Surg 04/02/24 Juvencio Saeed MD [address] [place], [place] [id number] Primary Staff Physician Cardiology 04/02/24 Twyla Cuevas, [employer]ED [employer] STRIPPER ETCHER.DIE PRESSER [address] [place] [address] Milling/Polishing Operator Internal Medicine 05/13/24 Jimbo Swanson, PRINTED CIRCUIT [employer]AR[employer] STRIPPER ETCHER.MUNICIPAL [address] MAGISTRATE [address] [place] [address] Milling/Polishing Operator Internal Medicine 07/09/24 Senior Benefits Analyst Relationship Specialty Start Date End Date Claudine Durán MD [address] [place] [address] PCP - General Internal Medicine 03/02/16 Will Hurley [address] [facility] [place] [address] Referring Rheumatology 04/09/18 Bartolome Francis MD [address] [place], [place] [id number] Surgeon Cardiac Surg 04/02/24 Juvencio Saeed MD [address] [place], [place] [id number] Primary Staff Physician Cardiology 04/02/24 Twyla Cuevas APRN.DIE PRESSER [address] [place] [address] Milling/Polishing Operator Internal Medicine 05/13/24 Jimbo Swanson [address]N.[address] MAGISTRATE [address] [place] [address] Milling/Polishing Operator Internal Medicine 07/09/24 Senior Benefits Analyst Relationship Specialty Start Date End Date Claudine Durán MD [address] [place] [address] PCP - General Internal Medicine 03/02/16 Will Hurley [address] [place] [address] Referring Rheumatology 04/09/18 Bartolome Francis MD [address] [place] [address] Surgeon Cardiac Surg 04/02/24 Juvencio Saeed MD [address] [place], [place] [id number] Primary Staff Physician Cardiology 04/02/24 Twyla Cuevas APRN.DIE PRESSER [address] [place] [address] Milling/Polishing Operator Internal Medicine 05/13/24 Jimbo Swanson, PR[employer]ED [employer] STRIPPER ETCHER.MUNICIPAL [address] MAGISTRATE [address] [place] [id number] [facility] Internal Medicine 07/09/24 Team Status: Active Member [...] CHRISTOPHE LOWRY Attending Provider Active Start: Nasrin ne 2024 End: August 18, 2024 CHRISTOPHE LOWRY Referring Provider Active Start: Nasrin ne 2024 End: August 18, 2024 Senior Benefits Analyst Relationship Specialty Start Date End Date Claudine Durán MD [address] [place], [place] [address] PCP - General Internal Medicine 03/02/16 Will Hurley [address] [place], [place] [address] Referring Rheumatology 04/09/18 Bartolome Francis MD [address] [place], [place] [id number] Surgeon Cardiac Surg 04/02/24 Juvencio Saeed MD [address] [place], [place] [id number] Primary Staff Physician Cardiology 04/02/24 Twyla Cuevas APRN.DIE PRESSER [address] [place], [place] [address] Milling/Polishing Operator Internal Medicine 05/13/[address] MAGISTRATE [address] [place], [place] [address] Milling/Polishing Operator Internal Medicine 07/09/24 Team Status: Active Member Role/Relationship Status Dates Dr. Claudine Durán MD Primary Care Provider Active Start: August 20, 2024 CHRISTOPHE LOWRY Attending Provider Active Start: Ju ly 2024 CHRISTOPHE LOWRY Referring Provider Active Start: Ju ly 2024 Team Status: Active Member Role/Relationship [...] Provider Active Start: August 25, 2024 Dr. Jasymn Chan , Other Provider Active S tart: August 25, [...] 2024 CHRISTOPHE LOWRY Attending Provider Active Start: [facility] 2024 End: June 18, 2024 CHRISTOPHE LOWRY Referring Provider Active Start: [facility] 2024 End: June 18, 2024 Team Status: [...] 2024 CHRISTOPHE LOWRY Attending Provider Active Start: [facility] 2024 End: July 19, 2024 CHRISTOPHE LOWRY Referring Provider Active Start: Ma y 2024 End: July 19, 2024 Team Status: Inactive Member Role/Relationship Status Dates Dr. Claudine Durán MD Primary Care Provider Active Start: August 18, 2024 End: August 18, 2024 CHRISTOPHE LOWRY Attending Provider Active Start: [place] ne 2024 End: August 18, 2024 CHRISTOPHE LOWRY Referring Provider Active Start: Ju ne 2024 End: August 18, 2024 Team Status: [...] Status: Active Member Role/Relationship Status Dates Dr. lCaudine Durán MD Primary Care Provider Active Start: August 25, 2024 Dr. Ron Mariscal MD Emergency Provider Active Start: August 25, 2024 Dr. Erasmo House MD Admit Provider Active Sta rt: August 25, 2024 Dr. Erasmo House MD Other Provider Active Sta rt: August 25, 2024 Dr. Burak Amadna MD Other Provider Active Sta rt: August [...] 2024 End: August 28, 2024 Fadia Pizarro DATABASE ADMIN, DATABASE ADMIN-C Attending Provider Active Start: August 28, 2024 [...] Status: Active Member Role/Relationship Status Dates Dr. Claudien Durán MD Primary Care Provider Active Start: [...] 2024 CHRISTOPHE LOWRY Attending Provider Active Start: [place] 2024 End: July 19, 2024 CHRISTOPHE LOWRY Referring Provider [place] Start: [place] 2024 End: July 19, 2024 Team Status: Inactive Member Role/Relationship Status Dates Dr. Claudine Durán MD Primary Care Provider Active Start: August 18, 2024 End: August 18, 2024 CHRISTOPHE LOWRY Attending Provider Active Start: [place] 2024 End: August 18, 2024 CHRISTOPHE LOWRY Referring Provider Active Start: ne 2024 End: August 18, 2024 Team Status: Inactive Member Role/Relationship Status Dates Dr. Claudine Durán MD Primary Care Provider Active Start: August 20, 2024 End: September 18, 2024 CHRISTOPHE LOWRY Attending Provider Active Start: ly 2024 End: September 18, 2024 CHRISTOPHE LOWRY Referring Provider Active Start: ly 2024 End: September 18, 2024 Team [...] Active Start: August 28, 2024 Team Status: Inactive Member Role/Relationship Status Dates Dr. Claudine Durán MD Primary Care Provider Active Start: August 28, 2024 End: August 28, 2024 Fadia Pizarro NP, DATABASE ADMIN-C Attending Provider Active Start: August 28, 2024 End: August 28, 2024 Team Status: Active Member [...] Active Start: October 02, 2024 Team Status: Active Member Role/Relationship Status Dates Dr. Claudine Durán MD Primary Care Provider Active Start: October 06, 2024 Zaynab NOLEN MD Attending Provider Active Start: October 06, 2024 Team Status: Active Member Role/Relationship Status Dates Dr. Claudine Durán MD Primary Care Provider Active Start: October 07, 2024 Zaynab NOLEN MD Attending Provider Active Start: October 07, 2024 Zaynab NOLEN MD Referring Provider Active Start: October 07, 2024 Team Status: Active Member Role/Relationship Status Dates Dr. Claudine Durán MD Primary Care Provider Active Start: October 09, 2024 Zaynab NOLEN MD Attending Provider Active Start: October 09, 2024 Team Status: Active Member Role/Relationship Status Dates Dr. Claudine Durán MD Primary Care Provider Active Start: October 13, 2024 Zaynab NOLEN MD Attending Provider Active Start: October 13, 2024 Team Status: Active Member Role/Relationship Status Dates Dr. Claudine Durán MD Primary Care Provider Active Start: October 16, 2024 Zaynab NOLEN MD Attending Provider Active Start: October 16, 2024 Team Status: Inactive Member Role/Relationship Status Dates Dr. Claudine Durán MD Primary Care Provider Active Start: October 19, 2024 End: October 19, 2024 Dr. Krissy Hilario MD Emergency Provider Active S tart: October 19, 2024 End: October 19, 2024 Senior Benefits Analyst Relationship Specialty Start Date End Date Claudine Durán MD [address] [place] [address] PCP - General Internal Medicine 03/02/16 Will Hurley [address] [place] [address] Referring Rheumatology 04/09/18 Bartolome Francis MD [address] [place], [place] [id number] Surgeon Cardiac Surg 04/02/24 Juvencio Saeed MD [address] [place], [place] [id number] Primary Staff Physician Cardiology 04/02/24 Twyla Cuevas APRN.DIE PRESSER [address] [place], [place] [id number] Milling/Polishing Operator Internal Medicine 05/13/24 Jimbo Swanson [address]N.MUNICIP[address] MAGISTRATE [address] [place], [place] [id number] Milling/Polishing Operator Internal Medicine 07/09/24 Team Status: Inactive Member Role/Relationship Status Dates Dr. Claudine Durán MD Primary Care Provider Active Start: September 30, 2024 End: September 30, 2024 Dr. Zaynab Pina MD Attending Provider Active Start: September 30, 2024 End: September 30, 2024 Team Status: Active Member Role/Relationship Status Dates Dr. Claudine Durán MD Primary Care Provider Active Start: October 06, 2024 Zaynab NOLEN MD Attending Provider Active Start: October 06, 2024 Team Status: Active Member Role/Relationship Status Dates Dr. Claudine Durán MD Primary Care Provider Active Start: October 07, 2024 Zaynab NOLEN MD Attending Provider Active Start: October 07, 2024 Zaynab NOLEN MD Referring Provider Active Start: October 07, 2024 Team Status: Active Member Role/Relationship Status Dates Dr. Claudine Durán MD Primary Care Provider Active Start: October 09, 2024 Zaynab NOLEN MD Attending Provider Active Start: October 09, 2024 Team Status: Active Member Role/Relationship Status Dates Dr. Claudine Durán MD Primary Care Provider Active Start: October 13, 2024 Zaynab NOLEN MD Attending Provider Active Start: October 13, 2024 Team Status: Active Member Role/Relationship Status Dates Dr. Claudine Durán MD Primary Care Provider Active Start: October 16, 2024 Zaynab NOLEN MD Attending Provider Active Start: October 16, 2024 Team Status: Inactive Member Role/Relationship Status Dates Dr. Claudine Durán MD Primary Care Provider Active Start: October 19, 2024 End: October 19, 2024 Dr. Krissy Hilario MD Emergency Provider Active S tart: October 19, 2024 End: October 19, 2024 Team Status: Inactive Member Role/Relationship Status Dates Dr. Claudine Durán MD Primary Care Provider Active Start: October 14, 2024 End: October 14, 2024 Fadia Pizarro DATABASE ADMIN, DATABASE ADMIN-C Attending Provider Active Start: October 14, 2024 End: October 14, 2024 Team Status: Active Member Role/Relationship Status Dates Dr. Claudine Durán MD Primary Care Provider Active Start: October 16, 2024 Zaynab NOLEN MD Attending Provider Active Start: October 16, 2024 Team Status: Inactive Member Role/Relationship Status Dates Dr. Claudine Durán MD Primary Care Provider Active Start: October 19, 2024 End: October 19, 2024 Dr. Krissy Hilario MD Emergency Provider Active S tart: October 19, 2024 End: October 19, 2024 Senior Benefits Analyst Relationship Specialty Start Date End Date Claudine Durán MD [address] [place] [address] PCP - General Internal Medicine 03/02/16 Will Hurley [address] [place] [address] Referring Rheumatology 04/09/18 Bartolome Francis MD [address] [place], [place] [id number] Surgeon Cardiac Surg 04/02/24 Juvencio Saeed MD [address] [place], [place] [id number] Primary Staff Physician Cardiology 04/02/24 Twyla Cuevas APRN.DIE PRESSER [address] [place] [address] Milling/Polishing Operator Internal Medicine 05/13/24 Jimbo Swanson [address]N.MUNIC[address] MAGISTRATE [address] [place], [place] [address] Milling/Polishing Operator Internal Medicine 07/09/24 Goals (unrecognized section and [...] BE BASED ON THE PRIMARY CLINICAL RECORDS. [facility]. provides no warranty or guarantee of the accuracy or completeness of information in this document.
[2024-11-08 17:30] VITALS: BMI 23.7
[2024-11-08 18:05] LABS: Hematocrit 33.0 % (37-47); Hemoglobin 11.3 g/dL (12.0-15.0); Immature Granulocytes Count 0.030 X10^3/uL (0.0-0.0); Mean Corp Hgb Conc 34.2 g/dL (32-36); Mean Corpuscular Volume 97.6 fL (81-99); Mean Platelet Vol. 10.1 fl (6.2-12.0); NRBC Flagged by Analyzer 0 % (0-5); Platelet Count 180 K/mm3 (150-450); RBC Distribution Width CV 14.9 % (11.6-14.6); RBC Distribution Width SD 53.5 fl (35.1-43.9); Red Blood Count 3.38 M/mm3 (4.2-5.4); White Blood Count 8.3 K/mm3 (4.4-11.0)
[2024-11-08 18:13] LABS: Prothrombin Time (Protime)PT. 22.8 SECONDS (11.7-14.9)
[2024-11-08 18:28] LABS: Anion Gap 13 (5-15); BUN 14 mg/dL (4-19); BUN/Creat Ratio 25.6 RATIO (10-20); Calcium,Total 9.4 mg/dL (7.6-11.0); Carbon Dioxide 21.5 mmol/L (21.0-32.0); Chloride 99 mmol/L (98-108); Estimated Creatinine Clearance 48.72 ml/min (50-250); Glucose 87 mg/dL (70-99); Potassium 3.8 mmol/L (3.3-5.1)
[2024-11-08 18:34] VITALS: BP 131/67; PULSE 83; RESP 18; TEMP 36.9; O2SAT 98
--- NOTE | 2024-11-08 18:51 | PCM.HP.STD ---
HPI - General General Date of Admission: 11/08/24 Date of Service: 11/08/24 Chief Complaint: Right knee pain HPI Narrative ALENA BUSTAMANTE, is a 79 F who presents to the emergency room at [facility] after sustaining a fall out of a chair at home and landing on her knees, since that time she has been complaining of right knee pain with inability to bear weight on the right leg without pain. Workup in the emergency room included x-rays which showed a fracture of the right patella, a moderately large associated complex suprapatellar effusion, and possible trochlear subchondral impaction injury. Labs obtained were abnormal for hemoglobin of 11.3, chemistry profile was unremarkable, INR was 2. Patient was placed in a right knee immobilizer, she was given IV narcotics for pain, she will be placed in observation status on [facility] 3 and she will be seen by PT OT and orthopedic surgery. I talked with Dr. Padilla Molina- patient had been seen by Dr. Amanda in the past for a wrist fracture in August of this year and Dr. Molina is on-call for Dr. Amanda this weekend. [facility] Medical History Declining functional status Closed head injury without concussion Closed fracture of distal end of left radius Hypertension GERD (gastroesophageal reflux disease) Pericardial effusion CHF (congestive heart failure) Wears glasses Walker as ambulation aid Ambulates with cane Arthritis Excessive bleeding Easy bruising History of ulceration History of GI bleed Gastric reflux Emphysema, unspecified Cardiology follow-up encounter History of edema Severe aortic stenosis ABLA (acute blood loss anemia) Thrombocytopenia Adult failure to thrive Leg edema Rheumatoid arthritis COPD (chronic obstructive pulmonary disease) Former smoker DVT (deep venous thrombosis) Pulmonary embolism Colitis COVID-19 Histoplasmosis Home Medications ?Medication ?Instructions ?Recorded ?Last Taken ?Type multivitamin (Daily Multi-Vitamin 1 tab PO DAILY supplement 03/19/23 10/01/23 History tablet) vitamins A,C,Q-tzsh-filwgl 2,148 2 tab PO BID eye health 03/19/23 10/01/23 History mcg-113 mg-45 mg-17.4 mg tablet (PreserVision AREDS) gabapentin 300 mg capsule 300 mg PO Q12 nerve pain #0 caps 04/05/23 10/01/23 Rx potassium chloride 20 mEq 20 meq PO BIDCM #0 tabs 04/27/23 10/01/23 Rx tablet,extended release(part/cryst) fluticasone propionate 50 1 spray intranasal DAILY 08/13/23 10/02/23 History mcg/actuation nasal spray,suspension furosemide 20 mg tablet 20 mg PO DAILY PRN edema 08/13/23 10/01/23 History tiotropium bromide 2.5 2 puff inhalation DAILY 08/13/23 10/02/23 History mcg/actuation mist for inhalation (Spiriva Respimat) diclofenac sodium 1 % topical gel 4 g topical BID PRN PRN knee pain 08/18/23 10/02/23 Rx (Voltaren Arthritis Pain) #100 grams albuterol sulfate 90 mcg/actuation 2 puff inhalation Q4H PRN PRN 06/13/24 Unknown History aerosol inhaler shortness of breath or wheezing cholecalciferol (vitamin D3) 25 25 mcg PO QDAY 06/13/24 Unknown History mcg (1,000 unit) capsule fluticasone 250 mcg-salmeterol 50 1 inh inhalation BID 06/13/24 Unknown History mcg/dose blistr powdr for inhalation (Wixela Inhub) folic acid 0.8 mg capsule 0.8 mg PO QDAY 06/13/24 Unknown History methotrexate sodium 2.5 mg tablet 10 mg PO QWEEK 06/13/24 Unknown History sulfasalazine 500 mg 1 g PO BID 06/13/24 Unknown History tablet,delayed release acetaminophen 500 mg tablet 1,000 mg PO TID Pain Score 1-10 06/20/24 Unknown History clindamycin HCl 300 mg capsule 600 mg (2 x 300 mg) PO ONCE #2 caps 06/20/24 Unknown Rx ferrous sulfate 325 mg (65 mg 325 mg PO QDAY 06/20/24 Unknown History iron) tablet metoprolol succinate 25 mg 25 mg PO QDAY #30 tabs 07/18/24 Unknown Rx tablet,extended release 24 hr folic acid 1 mg tablet 1 mg PO DAILY 08/23/24 Unknown History warfarin 1 mg tablet 5 mg PO DAILY 08/23/24 Unknown History warfarin 5 mg tablet See Rx Instructions .Route .COMPLEX 08/23/24 Unknown History gabapentin 300 mg capsule 300 mg PO BID #0 caps 08/27/24 Unknown Rx warfarin 6 mg tablet (Jantoven) 6 mg PO .[id number] 11/08/24 Unknown History Allergy/AdvReac Type Severity Reaction Status Date / Time Penicillins Allergy Severe Anaphylaxis Verified 11/08/24 15:36 Surgical History History of transcatheter aortic valve replacement (TAVR) History of back surgery History of esophagogastroduodenoscopy (EGD) History of tonsillectomy History of embolic filter insertion Hx of foot surgery Social History household members: none Smoking Status: Former smoker alcohol intake: never substance use type: does not use ROS Constitutional Constitutional: Denies anorexia, change in weight, fever(s), night sweats or weakness Eyes Eyes: Denies blurry vision, change in vision, discharge from eye(s) or eye pain Cardiovascular Cardiovascular: Denies chest pain, claudication, edema or palpitations Respiratory/Chest Respiratory/Chest: Denies cough, hemoptysis, shortness of breath at rest or shortness of breath with exertion Gastrointestinal Gastrointestinal: Denies abdominal pain, constipation, diarrhea, hematemesis, hematochezia, melena, nausea or vomiting Genitourinary Genitourinary: Denies dysuria, hematuria, urinary frequency, urinary hesitancy, urinary incontinence or urinary urgency Musculoskeletal Musculoskeletal: Reports arthralgias and joint pain; Denies back pain, joint stiffness, joint swelling, myalgias or neck pain Neurologic Neurologic: Denies abnormal gait, abnormal speech, dizziness, focal weakness, headache(s), loss of vision, numbness, other visual disturbances, paresthesias, syncope or tingling Psychiatric Psychiatric: Denies anxiety, cognitive impairment, depression, irritability, mood swings or suicidal ideation Endocrine Endocrinology: Denies change in body appearance, cold intolerance, excessive sweating, heat intolerance, polydipsia or polyuria Hematologic/Lymphatic Hematologic/Lymphatic: Denies none, anemia, easy bleeding, easy bruising or lymphadenopathy Allergic/Immunologic Allergic/Immunologic: Denies rhinitis, urticaria, eczemia or asthma Vital Signs Vital Signs Vital Signs: 11/08/24 15:34 11/08/24 16:34 11/08/24 18:34 Temperature 98.4 F 98.4 F Temperature Source Oral Pulse Rate 83 83 Respiratory Rate 18 18 Respiratory Effort Normal Non-Labored Respiratory Depth Normal Respiratory Pattern Normal Blood Pressure 131/67 H 131/67 H Blood Pressure Mean 88 88 Pulse Ox 98 98 Oxygen Delivery Method Room Air Room Air Weight Weight: 60.8 kg Body Mass Index (BMI) 23.7 Physical Exam Const alert, oriented x3 and no apparent distress Constitutional Narrative: Patient appears younger than her stated age General Appearance: cooperative, well kempt and well developed Orientation / Consciousness: awake, oriented to person, oriented to place and oriented to time HEENT normocephalic, head/scalp atraumatic, hearing grossly normal bilaterally and moist oral mucous membranes Eyes PERRL, EOMs intact bilaterally and conjunctivae normal Neck supple, no JVD, thyroid normal and no carotid bruits General: trachea midline Resp normal respiratory effort, no retractions, no use of accessory muscles and clear to auscultation bilaterally Auscultation: Negative for rales, rhonchi or wheezes Cardio regular rate, regular rhythm, S1 normal heart sound, S2 normal heart sound, no murmurs, no rub and no gallops GI normal to inspection, nondistended, normoactive bowel sounds, soft to palpation, non-tender and non-distended Extremity no clubbing, cyanosis or edema Extremity Narrative: Patient's right leg is in a knee immobilizer at this time and I did not remove it for examination of the right knee area Skin no rashes or lesions noted General Skin Exam: no breakdown Neuro oriented x3, CN's II-XII intact bilaterally, no focal motor deficits and no sensory deficits noted Sensorium / Orientation: awake and alert Speech: speech normal Psych affect normal Results Lab / Micro Data 11/08/24 17:55 11/08/24 17:55 Labs: Laboratory Results - last 24 hr 11/08/24 17:55: WBC 8.3, RBC 3.38 L, Hgb 11.3 L, Hct 33.0 L, MCV 97.6, MCH 33.4 H, MCHC 34.2, RDW Std Deviation 53.5 H, RDW Coeff of Catarino 14.9 H, Plt Count 180, MPV 10.1, Immature Gran % (Auto) 0.400, Neut % (Auto) 70.1 H, Lymph % (Auto) 19.2, [place] % (Auto) 9.7, Eos % (Auto) 0.4, Baso % (Auto) 0.2, Absolute Neuts (auto) 5.9, Absolute Lymphs (auto) 1.60, Nucleated RBC % 0, PT 22.8 H, INR 2.0, Sodium 133, Potassium 3.8, Chloride 99, Carbon Dioxide 21.5, Anion Gap 13, BUN 14, Creatinine 0.56 L, Estim Creat Clear Calc 48.72 L, Est GFR (MDRD) Non-Af 94, BUN/Creatinine Ratio 25.6 H, Glucose 87, Calcium 9.4 Imaging Radiology Impression Knee X-Ray 11/08/24 16:46 IMPRESSION: Acute transverse patellar fracture. - Moderately large associated complex suprapatellar effusion. - Possible trochlear subchondral impaction injury. - Other findings discussed above. Reading Location: [id number] Assessment & Plan Assessment/Plan (1) Patellar fracture: PLAN: Plan 1. Right patella fracture secondary to osteoporosis and mechanical fall-patient will be placed in observation status on [facility] 3, she will be seen in consultation with orthopedic surgery and she will be seen by PT and OT. IV narcotics will be used for analgesia or oral antibiotics if needed. #2 rheumatoid arthritis-patient is seen at [facility] arthritis for rheumatoid arthritis-complicates care, management, recovery, and prognosis #3 chronic use of anticoagulation due to past history of VTE-patient is chronically on warfarin, INR is therapeutic today, INR will be monitored #4 essential hypertension-patient is on metoprolol, this will be continued #5 chronic obstructive pulmonary disease-patient uses inhalers at home, she will be placed on DuoNeb aerosol treatments while hospitalized #6 right knee effusion-possibly secondary to bleeding as a result of chronic anticoagulation-orthopedic surgery will see the patient tomorrow Total clinical time spent by myself addressing the patient's medical issues, reviewing all of her data, and collaborating with patient's care team: 55 minutes Charges/Coding Visit Charges Inpatient E&M: 88382 Init Hosp L2
--- OUTSIDE RECORDS SUMMARY | 2024-11-08 19:03 | XMS RPT_ITS | CCD ---
Author Organization [facility] Care Team Providers Care Couples Therapist Name Role Phone Mykel Santamaria Unavailable Unavailable Mykel Santamaria Unavailable Unavailable UNKNOWN, REFERR Unavailable Unavailable Will Hurley Attending Unavailable PROVIDER, UNKNOWN Referring Unavailable No, PCP Primary Care Unavailable Claudine Durán MD Primary Care Provider Will Hurley Unavailable Gold Colón RN Unavailable UnavailClaudine Cannon MD Primary Care Provider Will Hurley Unavailable Gold Colón RN Unavailable Unavailabl Will Foote Unavailable [phone] Lulú Ramos RN Unavailable Katarzyna MITCHELL, Gold Coyne Unavailable UnavailClaudine Cannon MD Primary Care Provider Will Hurley Unavailable Rachel RN, Lulú Unavailable [phone] Rachel RN, Lulú Unavailable [phone] Paul RN, Ilda Unavailable Paul RN, [...] Provider Dr. Jorgito Agarwal Other Provider Sharon [employer] ACCESSORIES SALESPERSON, TO[employer] TRAINS [employer] ACCESSORIES SALESPERSON-C Rosalina Other Provider Dr. Jasmyn Chan Referring Provider Dr. Alisa Mathew Referring Provider Dr. Claudine Durán Referring Provider Dr. Claudine Durán Primary Care Provider Dr. Martín Cornejo Emergency Provider [phone] Dr. Laine Veras Admit Provider Dr. Laine [...] Provider Dr. Jorgito Agarwal Other Provider Sharon [employer] TRA[employer] ACCESSOR[employer] SALESPERSON, TO[employer] TRAINS AND ACCESSORIES SALESPERSON-C Rosalina Other Provider Dr. Edinson Irvin Chi [...] Provider Dr. Jorgito Agarwal Other Provider Sharon [employer] ACCESS[employer] SALESPERSON, TO[employer] TRAINS AND ACCESSORIES SALESPERSON-C Rosalina Other Provider Dr. Edinson Irvin Chi Referring Provider Claudine Durán MD Primary Care Provider Juarez [employer] ACCESSORIES SALESPERSON, TO[employer] TRAINS AND ACCESSORIES SALESPERSON-C Fadia Attending Provider Dr. Zaynab Pina Attending Provider CLAUDINE DURÁN Primary Care Unavailable WILLIAM MESSINA Attending Unavailab david Ramos RN, Lulú Coyne Unavailable [phone] CLAUDINE DURÁN Primary Care Unavailable MICHAEL LUJAN Admitting Unavailable SHARAN RIVAS Attending Unavailable GENO CAMACHO Consulting Unavailable Swanson DIGITAL COMMUNICATIONS MANAGER.AMUSEMENT RIDE OPERATOR, Jimbo Unavailable Mason DIGITAL COMMUNICATIONS MANAGER.COAT OPERATOR INSULATOR, Twyla Unavailable Tito MC, Bartolome Unavailable Christophe MC, Juvecnio Unavailable Eli RN, Pili Unavailable Unavailable Mason DIGITAL COMMUNICATIONS MANAGER.COAT OPERATOR INSULATOR, Twyla Jannet Unavailable Mason DIGITAL COMMUNICATIONS MANAGER.COAT OPERATOR INSULATOR, Twyla Unavailable Eli RN, Pili Unavailable Unavailable Mason DIGITAL COMMUNICATIONS MANAGER.COAT OPERATOR INSULATOR, Twyla Unavailable Mason DIGITAL COMMUNICATIONS MANAGER.COAT OPERATOR INSULATOR, Twyla Unavailable Dr. Claudine Druán MD Primary Care Provider [phone] JUVENCIO SAEED Attending Provider [phone] JUVENCIO SAEED Referring Provider Dr. Claudine Durán MD Referring Provider Dr. Diaz Puckett MD Attending Provider Swanson DIGITAL COMMUNICATIONS MANAGER.AMUSEMENT RIDE OPERATOR, Jimbo Unavailable Loida MC, Dr. Velasquez Emergency Provider Harsh MC, Dr. Zimmerman Admit Provider Harsh MC, Dr. Zimmerman Attending Provider Vasiliy MC, Dr. Sumner Other Provider [phone] Harsh MC, Dr. Zimmerman Other Provider Dr. Jasmyn Chan DO Attending Provider Harsh MC, Dr. Zimmerman Attending Provider Dustin GAYLE, Dr. Rodriguez Other Provider Zaynab Pina MD Attending Provider Louisa Durán MD, Dr. Claudine Castañeda Primary Care Provider [phone] JUVENCIO SAEED Attending Provider JUVENCIO SAEED Referring Provider Yovani MC, Dr. Worthy Attending Provider Zaynab Pina MD Referring Provider Louisa Pizarro TO[employer] TRAINS AND ACCESSORIES SALESPERSON-CFadia Attending Provider Pasha MC, Dr. Claudine Castañeda Primary Care Provider JUVENCIO SAEED Attending Provider [phone] JUVENCIO SAEED Referring Provider Loida MC, Dr. Velasquez Emergency Provider Harsh MC, Dr. Zimmerman Admit Provider Harsh MC, Dr. Zimmerman Other Provider Vasiliy MC, Dr. Sumner Other Provider Dustin GAYLE, Dr. Rodriguez Attending Provider Harsh MC, Dr. Zimmerman Attending Provider Dustin GAYLE, Dr. Rodriguez Other Provider Zaynab Pina MD Attending Provider Unavaildenise Pizarro TO[employer] TRAINS AND ACCESSORIES SALESPERSON-CFadia Attending Provider Yovani MC, Dr. Worthy Attending [...] Unavailable TRENT-PALSHOOK, MONICA Referring Unavai lable TALAMPAS, CLAUDNIE D Primary Care Unavailable TRENT-PALSHOOK, MONICA Referring [...] Unavailable TALAMPAS, CLAUDINE D Primary Care Unavailable [facility], LEANDRA Referring Unavailable TALAMPAS, CLAUDINE D [...] Consulting Unavailable Jasmyn Chan Attending Unavailable [facility], Erasmo Admitting Unavailable Talampas, Claudine D Primary Care Unavailable [facility], Erasmo Consulting Unavailable Jasmyn Chan Consulting Unavailable Talampas, Claudine D Primary Care Unavailable Krissy Hilario Attending Unavailable Oleghe OLS, Efewongbe Attending Unavailabl e Talampas, Claudine D Primary Care Unavailable Oleghe OLS, Efewongbe Attending Unavailabl e Talampas, Claudine D Primary Care Unavailable Burak Amanda Consulting Unavailable Talampas, Claudine D Primary Care Unavailable Jasmyn Chan Attending Unavailable [facility], Erasmo Admitting Unavailable [facility], Erasmo Consulting Unavailable Oleghe OLS, Efewongbe Referring [...] (antibiotic) (5 sources) Penicillins Drug Allergy 5 [facility] (20 sources) Penicillins; Translations: [PENICILLINS] Propensity to adverse reactions (disorder) 5 [facility] Repository Medications Current Medications Medication Drug [...] 7 days. 7 tablet 10/11/2023 10/18/2023 Active [id number] actuat albuter ol 0.09 mg/actuat metered [...] mo uth once daily at breakfast vit A,C,J-Hldn-Sqapav (OCUVITE PRESERVISION) 2,148 mcg-113 mg-45 mg-17.4mg tab [...] 04-05-2023 End: 04-27-2023 Fluticasone Propionate 50 mcg/actuation [place],Suspension Discontinued 1 NMA NASAL DAILY 0 0 [...] (FLONASE) 50 mcg/actuation nasal spray Use 1 [place] in each nostril once daily. 3 Each 3 07/20/2022 06/20/2024 Discontinued Comment on above: Use 1 [place] in each nostril once daily. Fluticasone Propion-Salmeter [...] Start: 07-26-2013 take 2 tablets by mo [facility] once in the evening methotrexate 2.5 mg [...] ug by inhal ation once daily Tiotropium [place] (Spiriva Respimat) 2.5 mcg/actuation mist Active 2 [...] ug by inhalation every twenty-four hours Tiotropium [place] (Spiriva Respimat) 2.5 mcg/actuation mist Discontinued 2 NMA INHALATION Q24H March 19, 2023 1:00am April 27, 2023 2:17pm Start: 03-19-2023 End: 04-27-2023 Start: 03-19-2023 End: 04-27-2023 take 1 puff(s) by inhalation every twenty-four hours Tiotropium [place] (Spiriva Respimat) 2.5 mcg/actuation mist Discontinued 2 [...] 20 mg/ml oral solution (20 sources) Uncompetitive M-umxxsa-U-aspartate Receptor Antagonist, Sigma-1 Agonist Start: 04-27-2023 End: [...] docusate sodium 50 mg / anson osides, retirement 8.6 mg oral tablet (20 sources) Start: [...] on above: Take 2 capsules by m [facility] as directed. Take 200 mg (2 [...] on above: Take 1 capsule by mo [facility] three times a day as needed [...] twice daily as needed. Take with food [place] 9-Rob-Eeq-Fish Oil (Fish Oil) 1,200 (144-216) mg capsule (8 sources) Start: 10-01-2023 End: 08-27-2024 [place] 2-Phl-Cjz-Fish Oil (Fish Oil) 1,200 (144-216) mg capsule Discontinued 1 NMA PO DAILY October 01, 2023 12:00am August 27, 2024 12:00pm Start: 10-01-2023 [place] 3-Dha-Ep a-Fish Oil (Fish Oil) 1,200 (144-216) [...] sources) Long-term current use of anticoagulant; Translations: [intermediate designer (current) use of 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] Onset: 0 12-10-2014 Episodic Other aftercare (2 sources) intermediate designer (current) use of 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; Translations: [shelter current use of anticoagulant therapy] Onset: 5 Episodic Other aftercare (1 source) Long-term current use of drug therapy; Translations: [Other tank terminal gauger (current) drug therapy] 08-22-2023 Episodic Other aftercare (2 sources) Long-term current use of antibiotic; Translations: [shelter (current) use of antibiotics] 12-18-2023 Episodic Other [...] 8 07-30-2017 Episodic Other aftercare (1 source) intermediate designer (current) use of antibiotics; Translations: [Encounter for [...] without Contrasto n 10-19-2024 Brain/Head without Contrast [facility] Imaging Services [address] [place] [address] Brain/Head without Contrast MR#: [id number] Acct: [id number] Name: HAYDEE BUSTAMANTE Rep #: [id number] : 1945 F 79 From: Lo hess MD PCP: Dr. Claudine Durán MD Status: [facility] ER Study: Brain/Head without Contrast Date of Exam: 09/21 03/15 Exam# [id number] Ordering Dr: Krissy Hilario MD PROCEDURE: BRAIN/HEAD [...] evidence for acute brain abnormality. [facility] CC: Dr. Krissy Hilario MD; Dr. 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 [facility] Medical History Declining functional status Closed head [...] DAILY supplement 4 10/01/23 History tablet) vitamins A,C,X-bstw-twylud 2,148 2 tab PO BID eye health [...] surgery H (more content not included)... [facility] Prothrombin Time w/INRon INR Coag (PPP) [Relative time] 2.2 {INR} [facility] Comment on above: Performed By: #### L 500.2500, L100.0100 #### [facility] [address] [place], [place], [id number] PT Coag (PPP) [Time] 25.2 s High 11.7-14.9 [facility] Comment on above: Performed By: #### L 500.2500, L100.0100 #### [facility] [address] [place], [address] Prothrombin timeOrdered By: Krissy Hilario on 10-19-2024 PT Coag (PPP) [Time] 25.2 s High 11.7-14.9 [facility] Spine Cervical without Contr ason 10-19-2024 Spine Cervical without Contras [facility] Imaging Services [address] [place], [place] [id number] Spine Cervical without Contras MR#: [id number] Acct: [id number] Name: HAYDEE BUSTAMANTE Rep #: [id number] : 1945 F 79 From: Lo hess MD PCP: Dr. Claudine Durán MD Status: REG ER Study: Spine Cervical without Contras Date of Exam: 0 10/19/24 Exam# [id number] Ordering Dr: Krissy Hilario MD PROCEDURE: SPINE [...] and neural exit pathway compromise. Reading Location: [place] [address] CC: Dr. Krissy Hilario MD; Dr. Claudine Durán MD Life Science Teacher: Signed [facility] Absolute lymphocyte countOrd ered By: Christineelmertanjoesph Cherrynatimarily on 10-16-2024 Lymphocytes Auto (Unsp spec) [#/Vol] 1.13 10*3/uL 0.83-4.51 [facility] Anion gap in Serum or Plasma Ordered By: Efamilcar Pina on 10-16-2024 Anion gap [Moles/Vol] 11 mmol/L 5-15 [facility] Automated lymphocyte count a s percentage of total leukocytesOrdered By: Efamilcar Cherrynatimarily on 10-16-2024 Lymphocytes/100 WBC Auto (Unsp spec) 18.9 % Low 19-41 [facility] BUN/creatinine ratioOrdered By: Efelmertopekajoesph Cherrynatie on 10-16-2024 Urea nitrogen/Creatinine [Mass ratio] 23.5 mg/mg High 10-20 [facility] Basophil percentageOrdered B y: Efelmerongbe Dilipnatie on 10-16-2024 Basophils/100 WBC (Bld) 0.5 % 0-1 [facility] Carbon dioxide, total [Moles /volume] in Central venous bloodOrdered By: Zaynab Cherrynatimarily on 10-16-2024 CO2 [Moles/Vol] 21.1 mmol/L 21.0-32.0 [facility] Chloride assayOrdered By: Ef amilcar Pina on 10-16-2024 Chloride [Moles/Vol] 98 mmol/L 98-108 [facility] Eosinophil percentageOrdered By: elmerongbe Dilipnatie on 10-16-2024 Eosinophils/100 WBC (Bld) 1.7 % 0-5 [facility] Erythrocyte distribution wid th ratioOrdered By: Efelmerongbe Dilipnatie on 10-16-2024 Erythrocyte distribution width (RBC) [Ratio] 14.6 % 11.6-14.6 [facility] Erythrocyte distribution wid th standard deviationOrdered By: stevenbe Dilipnatie on 10-16-2024 Erythrocyte distribution width (RBC) [Ratio] 50.8 fl High 35.1-43.9 [facility] Glomerular filtration rate ( GFR) estimation/1.73 sq m using serum, plasma, or whole bOrdered By: Christineelmertanjoesph Cherryjohnny on 10-16-2024 GFR/1.73 sq M.predicted among non-blacks MDRD (S/P/Bld) [Vol rate/Area] 92 mL/min/{1.73_m2} >60 [facility] Hematocrit Auto (Bld) [Volum e fraction]Ordered By: Claudiotanjoesph Cherrynatimarily on 10-16-2024 Hematocrit (Bld) [Volume fraction] 35.7 % Low 37-47 [facility] Hemoglobin measurementOrdere d By: elmershala Dilipnatimarily on 10-16-2024 Hemoglobin (Bld) [Mass/Vol] 12.0 g/dL 12.0-15.0 [facility] Immature granulocytes/100 WB C Auto (Bld)Ordered By: Zaynab Cherrynatimarily 10-16-2024 Immature granulocytes/100 WBC (Bld) 0.800 % 0.0-0.9 [facility] MCV (mean corpuscular volume ) determinationOrdered By: Zaynab Cherrynatimarily on 10-16-2024 MCV (RBC) [Entitic vol] 96.0 fL 81-99 [facility] Mean corpuscular hemoglobin (MCH) determinationOrdered By: amilcar Cherrynatimarily on 10-16-2024 MCH (RBC) [Entitic mass] 32.3 pg High 27.0-32.0 [facility] Monocyte percentageOrdered B y: Christineelmertanjoesph Cherrynatimarily on 10-16-2024 Monocytes/100 WBC (Bld) 12.7 % High 0-10 [facility] Neutrophil percentageOrdered By: elmertopekajoesph Cherrynatimarily on 10-16-2024 Neutrophils/100 WBC (Bld) 65.4 % 47-70 [facility] Platelet countOrdered By: Christine amilcar Dilipnatimarily on 10-16-2024 Platelets (Bld) [#/Vol] 196 10*3/uL 150-450 [facility] Potassium measurement (mass/ volume)Ordered By: Zaynab Cherrynatimarily on 10-16-2024 Potassium (Unsp spec) [Mass/Vol] 4.2 mmol/L 3.3-5.1 [facility] Prothrombin timeOrdered By: Zaynab Pina on 10-16-2024 PT Coag (PPP) [Time] 17.6 s High 11.7-14.9 [facility] RBC Auto (Bld) [#/Vol]Ordere d By: Zaynab Pina on 10-16-2024 RBC (Bld) [#/Vol] 3.72 10*6/uL Low 4.2-5.4 [facility] Serum creatinine measurement (mass/volume)Ordered By: Zaynab Pina on 10-16-2024 Creatinine [Mass/Vol] 0.60 mg/dL Low 0.70-1.20 [facility] Serum glucose measurement (m ass/volume)Ordered By: Zaynab Pina on 10-16-2024 Glucose [Mass/Vol] 83 mg/dL 70-99 [facility] Serum or plasma calcium monica urement (mass/volume)Ordered By: Zaynab Pina on 10-16-2024 Calcium [Mass/Vol] 8.8 mg/dL 7.6-11.0 [facility] Serum or plasma urea nitroge n measurement (mass/volume)Ordered By: Zaynab Pina on 10-16-2024 Urea nitrogen [Mass/Vol] 14 mg/dL 4-19 [facility] Sodium levelOrdered By: Claudio powellhasmukh Yovani on 10-16-2024 Sodium [Moles/Vol] 129 mmol/L Low 133-145 [facility] White blood cell (WBC) count Ordered By: Zaynab Pina on 10-16-2024 WBC (Bld) [#/Vol] 6.0 10*3/uL 4.4-11.0 [facility] International normalized rat io (INR) measurement by fingerstickOrdered By: Zaynab Pina on 10-13-2024 INR Coag (BldC) [Relative time] 2.0 [facility] Whole blood prothrombin time Ordered By: Zaynab Pina on 10-13-2024 PT Coag (Bld) [Time] 22.3 s High 11.7-14.9 [facility] Absolute lymphocyte countOrd ered By: Zaynab Pina on 10-09-2024 Lymphocytes Auto (Unsp spec) [#/Vol] 1.63 10*3/uL 0.83-4.51 [facility] Anion gap in Serum or Plasma Ordered By: Zaynab Pina on 10-09-2024 Anion gap [Moles/Vol] 13 mmol/L 5-15 [facility] Automated lymphocyte count a s percentage of total leukocytesOrdered By: Zaynab Pina on 10-09-2024 Lymphocytes/100 WBC Auto (Unsp spec) 25.3 % 19-41 [facility] BUN/creatinine ratioOrdered By: Zaynab Pina on 10-09-2024 Urea nitrogen/Creatinine [Mass ratio] 23.1 mg/mg High 10-20 [facility] Basophil percentageOrdered B y: Zaynab Pina on 10-09-2024 Basophils/100 WBC (Bld) 0.5 % 0-1 [facility] Carbon dioxide, total [Moles /volume] in Central venous bloodOrdered By: Zaynab Pina on 10-09-2024 CO2 [Moles/Vol] 21.3 mmol/L 21.0-32.0 [facility] Chloride assayOrdered By: Christine Pina on 10-09-2024 Chloride [Moles/Vol] 101 mmol/L 98-108 [facility] Eosinophil percentageOrdered By: Zanyab Pina on 10-09-2024 Eosinophils/100 WBC (Bld) 1.4 % 0-5 [facility] Erythrocyte distribution wid th ratioOrdered By: Zaynab Pina on 10-09-2024 Erythrocyte distribution width (RBC) [Ratio] 14.0 % 11.6-14.6 [facility] Erythrocyte distribution wid th standard deviationOrdered By: Zaynab Pina on 10-09-2024 Erythrocyte distribution width (RBC) [Ratio] 49.2 fl High 35.1-43.9 [facility] Glomerular filtration rate ( GFR) estimation/1.73 sq m using serum, plasma, or whole bOrdered By: Zaynab Pina on 10-09-2024 GFR/1.73 sq M.predicted among non-blacks MDRD (S/P/Bld) [Vol rate/Area] 92 mL/min/{1.73_m2} >60 [facility] Hematocrit Auto (Bld) [Volum e fraction]Ordered By: Zaynab Pina on 10-09-2024 Hematocrit (Bld) [Volume fraction] 33.1 % Low 37-47 [facility] Hemoglobin measurementOrdere d By: Christineelmershala Dilipnatimarily on 10-09-2024 Hemoglobin (Bld) [Mass/Vol] 11.2 g/dL Low 12.0-15.0 [facility] Immature granulocytes/100 WB C Auto (Bld)Ordered By: Zaynab Cherrynatimarily on 10-09-2024 Immature granulocytes/100 WBC (Bld) 0.600 % 0.0-0.9 [facility] MCV (mean corpuscular volume ) determinationOrdered By: Zaynab Pina on 10-09-2024 MCV (RBC) [Entitic vol] 95.9 fL 81-99 [facility] Mean corpuscular hemoglobin (MCH) determinationOrdered By: Christineamilcar Cherrynatimarily on 10-09-2024 MCH (RBC) [Entitic mass] 32.5 pg High 27.0-32.0 [facility] Monocyte percentageOrdered B y: Christineelmertanjoesph Cherrynatimarily on 10-09-2024 Monocytes/100 WBC (Bld) 11.2 % High 0-10 [facility] Neutrophil percentageOrdered By: Christineelmertanjoesph Cherrynatimarily on 10-09-2024 Neutrophils/100 WBC (Bld) 61.0 % 47-70 [facility] Platelet countOrdered By: Christine stevenjoesph Cherrynatimarily on 10-09-2024 Platelets (Bld) [#/Vol] 186 10*3/uL 150-450 [facility] Potassium measurement (mass/ volume)Ordered By: Christineamilcar Cherrynatimarily on 10-09-2024 Potassium (Unsp spec) [Mass/Vol] 3.9 mmol/L 3.3-5.1 [facility] Prothrombin timeOrdered By: Zaynab Cherrynatimarily on 10-09-2024 PT Coag (PPP) [Time] 21.3 s High 11.7-14.9 [facility] RBC Auto (Bld) [#/Vol]Ordere d By: Zaynab Dilipnatimarily on 10-09-2024 RBC (Bld) [#/Vol] 3.45 10*6/uL Low 4.2-5.4 [facility] Serum creatinine measurement (mass/volume)Ordered By: Zaynab Pina on 10-09-2024 Creatinine [Mass/Vol] 0.62 mg/dL Low 0.70-1.20 [facility] Serum glucose measurement (m ass/volume)Ordered By: Zaynab Pina on 10-09-2024 Glucose [Mass/Vol] 68 mg/dL Low 70-99 [facility] Serum or plasma calcium monica urement (mass/volume)Ordered By: Zaynab Pina on 10-09-2024 Calcium [Mass/Vol] 8.8 mg/dL 7.6-11.0 [facility] Serum or plasma urea nitroge n measurement (mass/volume)Ordered By: Zaynab Pina on 10-09-2024 Urea nitrogen [Mass/Vol] 14 mg/dL 4-19 [facility] Sodium levelOrdered By: Claudio collinsmarily Dilipnatimarily on 10-09-2024 Sodium [Moles/Vol] 135 mmol/L 133-145 [facility] White blood cell (WBC) count Ordered By: Zaynab Pina on 10-09-2024 WBC (Bld) [#/Vol] 6.5 10*3/uL 4.4-11.0 [facility] Sodium levelOrdered By: Claudio Cherrynatimarily on 10-07-2024 Sodium [Moles/Vol] 135 mmol/L 133-145 [facility] International normalized rat io (INR) measurement by fingerstickOrdered By: Zaynab Pina on 10-06-2024 INR Coag (BldC) [Relative time] 1.6 [facility] Whole blood prothrombin time Ordered By: Zaynab Pina on 10-06-2024 PT Coag (Bld) [Time] 18.4 s High 11.7-14.9 [facility] Absolute lymphocyte countOrd ered By: Efelmerongbe Dilipnatie on 10-02-2024 Lymphocytes Auto (Unsp spec) [#/Vol] 0.96 10*3/uL 0.83-4.51 [facility] Absolute neutrophil countOrd ered By: Efewongbe Olenatie on 10-02-2024 Neutrophils (Bld) [#/Vol] 3.7 10*3/uL 2.0-7.7 [facility] Anion gap in Serum or Plasma Ordered By: Efewongbe Oleghe on 10-02-2024 Anion gap [Moles/Vol] 12 mmol/L 5-15 [facility] Automated lymphocyte count a s percentage of total leukocytesOrdered By: Efelmerongbe Dilipnatie on 10-02-2024 Lymphocytes/100 WBC Auto (Unsp spec) 17.0 % Low 19-41 [facility] BUN/creatinine ratioOrdered By: Efelmerongbe Dilipnatie on 10-02-2024 Urea nitrogen/Creatinine [Mass ratio] 20.9 mg/mg High 10-20 [facility] Basophil percentageOrdered B y: Efelmerongbe Dilipnatie on 10-02-2024 Basophils/100 WBC (Bld) 0.4 % 0-1 [facility] Carbon dioxide, total [Moles /volume] in Central venous bloodOrdered By: Zaynab Cherryghe on 10-02-2024 CO2 [Moles/Vol] 21.1 mmol/L 21.0-32.0 [facility] Chloride assayOrdered By: Ef elmerongbe Joselyne on 10-02-2024 Chloride [Moles/Vol] 95 mmol/L Low 98-108 [facility] Eosinophil percentageOrdered By: Efelmerongbe Oleghe on 10-02-2024 Eosinophils/100 WBC (Bld) 0.9 % 0-5 [facility] Erythrocyte distribution wid th ratioOrdered By: Efewongbe Oleghe on 10-02-2024 Erythrocyte distribution width (RBC) [Ratio] 13.8 % 11.6-14.6 [facility] Erythrocyte distribution wid th standard deviationOrdered By: Efelmerongbe Oleghe on 10-02-2024 Erythrocyte distribution width (RBC) [Ratio] 48.2 fl High 35.1-43.9 [facility] Glomerular filtration rate ( GFR) estimation/1.73 sq m using serum, plasma, or whole bOrdered By: Zaynab Pina on 10-02-2024 GFR/1.73 sq M.predicted among non-blacks MDRD (S/P/Bld) [Vol rate/Area] 93 mL/min/{1.73_m2} >60 [facility] Comment on above: mL/min/1.73m2 CKD-EP I Creatinine Equation (2020) Hematocrit Auto (Bld) [Volum e fraction]Ordered By: Zaynab Pina on 10-02-2024 Hematocrit (Bld) [Volume fraction] 32.9 % Low 37-47 [facility] Hemoglobin measurementOrdere d By: Zaynab Pina on 10-02-2024 Hemoglobin (Bld) [Mass/Vol] 11.2 g/dL Low 12.0-15.0 [facility] Immature granulocytes/100 WB C Auto (Bld)Ordered By: Zaynab Pina on 10-02-2024 Immature granulocytes/100 WBC (Bld) 0.700 % 0.0-0.9 [facility] Comment on above: IG% - Immature Granu locytes (promyelocytes, myelocytes and metamyelocytes) > 1% indicates that a LEFT SHIFT is Present. MCV (mean corpuscular volume ) determinationOrdered By: Zaynab Pina 10-02-2024 MCV (RBC) [Entitic vol] 95.1 fL 81-99 [facility] Mean corpuscular hemoglobin (MCH) determinationOrdered By: Zaynab Pina on 10-02-2024 MCH (RBC) [Entitic mass] 32.4 pg High 27.0-32.0 [facility] Mean corpuscular hemoglobin concentration (MCHC) determinationOrdered By: Zaynab Pina 10-02-2024 MCHC (RBC) [Mass/Vol] 34.0 g/dL 32-36 [facility] Mean platelet volume determi nationOrdered By: Zaynab Pina 10-02-2024 Platelet mean volume (Bld) [Entitic vol] 10.9 fL 6.2-12.0 [facility] Monocyte percentageOrdered B y: Claudiotanjoesph Cherrynatimarily on 10-02-2024 Monocytes/100 WBC (Bld) 15.2 % High 0-10 [facility] Neutrophil percentageOrdered By: Zaynab Pina on 10-02-2024 Neutrophils/100 WBC (Bld) 65.8 % 47-70 [facility] Nucleated red blood cell per centageOrdered By: Zaynab Pina on 10-02-2024 Nucleated RBC/100 WBC (Bld) [Ratio] 0 % 0-5 [facility] Platelet countOrdered By: Christine elmershala Pina on 10-02-2024 Platelets (Bld) [#/Vol] 160 10*3/uL 150-450 [facility] Potassium measurement (mass/ volume)Ordered By: Zaynab Pina on 10-02-2024 Potassium (Unsp spec) [Mass/Vol] 3.9 mmol/L 3.3-5.1 [facility] Prothrombin timeOrdered By: Zaynab Pina on 10-02-2024 PT Coag (PPP) [Time] 20.9 s High 11.7-14.9 [facility] RBC Auto (Bld) [#/Vol]Ordere d By: Zaynab Pina on 10-02-2024 RBC (Bld) [#/Vol] 3.46 10*6/uL Low 4.2-5.4 [facility] Serum creatinine measurement (mass/volume)Ordered By: Zaynab Pina on 10-02-2024 Creatinine [Mass/Vol] 0.58 mg/dL Low 0.70-1.20 [facility] Serum glucose measurement (m ass/volume)Ordered By: Zaynab Pina on 10-02-2024 Glucose [Mass/Vol] 80 mg/dL 70-99 [facility] Serum or plasma calcium monica urement (mass/volume)Ordered By: Zaynab Pina on 10-02-2024 Calcium [Mass/Vol] 9.0 mg/dL 7.6-11.0 [facility] Serum or plasma urea nitroge n measurement (mass/volume)Ordered By: Zaynab Pina on 10-02-2024 Urea nitrogen [Mass/Vol] 12 mg/dL 4-19 [facility] Sodium levelOrdered By: Claudio shala Yovani on 10-02-2024 Sodium [Moles/Vol] 129 mmol/L Low 133-145 [facility] White blood cell (WBC) count Ordered By: Zaynab Pina on 10-02-2024 WBC (Bld) [#/Vol] 5.6 10*3/uL 4.4-11.0 [facility] International normalized rat io (INR) measurement by fingerstickOrdered By: Zaynab Pina on 09-29-2024 INR Coag (BldC) [Relative time] 1.9 [facility] Comment on above: Critical Value > 4.0 Whole blood prothrombin time Ordered By: Zaynab Pina on 09-29-2024 PT Coag (Bld) [Time] 20.7 s High 11.7-14.9 [facility] Absolute lymphocyte countOrd ered By: Zaynab Pina on 09-25-2024 Lymphocytes Auto (Unsp spec) [#/Vol] 1.19 10*3/uL 0.83-4.51 [facility] Absolute neutrophil countOrd ered By: Zaynab Pina on 09-25-2024 Neutrophils (Bld) [#/Vol] 3.8 10*3/uL 2.0-7.7 [facility] Anion gap in Serum or Plasma Ordered By: Zaynab Pina on 09-25-2024 Anion gap [Moles/Vol] 11 mmol/L 5-15 [facility] Automated lymphocyte count a s percentage of total leukocytesOrdered By: Zaynab Pina on 09-25-2024 Lymphocytes/100 WBC Auto (Unsp spec) 20.2 % 19-41 [facility] BUN/creatinine ratioOrdered By: Zaynab Pina on 09-25-2024 Urea nitrogen/Creatinine [Mass ratio] 29.4 mg/mg High 10-20 [facility] Basophil percentageOrdered B y: Zaynab Pina on 09-25-2024 Basophils/100 WBC (Bld) 0.7 % 0-1 [facility] Carbon dioxide, total [Moles /volume] in Central venous bloodOrdered By: Zaynab Pina on 09-25-2024 CO2 [Moles/Vol] 22.1 mmol/L 21.0-32.0 [facility] Chloride assayOrdered By: Christine Pina on 09-25-2024 Chloride [Moles/Vol] 101 mmol/L 98-108 [facility] Eosinophil percentageOrdered By: Zaynab Pina on 09-25-2024 Eosinophils/100 WBC (Bld) 2.9 % 0-5 [facility] Erythrocyte distribution wid th ratioOrdered By: Zaynab Pina on 09-25-2024 Erythrocyte distribution width (RBC) [Ratio] 14.3 % 11.6-14.6 [facility] Erythrocyte distribution wid th standard deviationOrdered By: Zaynab Pina on 09-25-2024 Erythrocyte distribution width (RBC) [Ratio] 50.6 fl High 35.1-43.9 [facility] Glomerular filtration rate ( GFR) estimation/1.73 sq m using serum, plasma, or whole bOrdered By: Zaynab Pina on 09-25-2024 GFR/1.73 sq M.predicted among non-blacks MDRD (S/P/Bld) [Vol rate/Area] 92 mL/min/{1.73_m2} >60 [facility] Comment on above: mL/min/1.73m2 CKD-EP I Creatinine Equation (2020) Hematocrit Auto (Bld) [Volum e fraction]Ordered By: Zaynab Pina on 09-25-2024 Hematocrit (Bld) [Volume fraction] 33.8 % Low 37-47 [facility] Hemoglobin measurementOrdere d By: Zaynab Pina on 09-25-2024 Hemoglobin (Bld) [Mass/Vol] 11.3 g/dL Low 12.0-15.0 [facility] Immature granulocytes/100 WB C Auto (Bld)Ordered By: Zaynab Pina on 09-25-2024 Immature granulocytes/100 WBC (Bld) 0.500 % 0.0-0.9 [facility] Comment on above: IG% - Immature Granu locytes (promyelocytes, myelocytes and metamyelocytes) > 1% indicates that a LEFT SHIFT is Present. International normalized rat io (INR) calculationOrdered By: Zaynab Pina on 09-25-2024 INR Coag (Bld) [Relative time] 1.5 {INR} [facility] MCV (mean corpuscular volume ) determinationOrdered By: Zaynab Pina on 09-25-2024 MCV (RBC) [Entitic vol] 96.6 fL 81-99 [facility] Mean corpuscular hemoglobin (MCH) determinationOrdered By: Zaynab Pina on 09-25-2024 MCH (RBC) [Entitic mass] 32.3 pg High 27.0-32.0 [facility] Mean corpuscular hemoglobin concentration (MCHC) determinationOrdered By: Zaynab Pina on 09-25-2024 MCHC (RBC) [Mass/Vol] 33.4 g/dL 32-36 [facility] Mean platelet volume determi nationOrdered By: Zaynab Pina on 09-25-2024 Platelet mean volume (Bld) [Entitic vol] 11.1 fL 6.2-12.0 [facility] Monocyte percentageOrdered B y: Zaynab Pina on 09-25-2024 Monocytes/100 WBC (Bld) 11.9 % High 0-10 [facility] Neutrophil percentageOrdered By: Zaynab Pina on 09-25-2024 Neutrophils/100 WBC (Bld) 63.8 % 47-70 [facility] Nucleated red blood cell per centageOrdered By: Zaynab Pina on 09-25-2024 Nucleated RBC/100 WBC (Bld) [Ratio] 0 % 0-5 [facility] Platelet countOrdered By: Christine Pina on 09-25-2024 Platelets (Bld) [#/Vol] 175 10*3/uL 150-450 [facility] Potassium measurement (mass/ volume)Ordered By: Zaynab Pina on 09-25-2024 Potassium (Unsp spec) [Mass/Vol] 3.9 mmol/L 3.3-5.1 [facility] Prothrombin timeOrdered By: Zaynab Pina on 09-25-2024 PT Coag (PPP) [Time] 18.4 s High 11.7-14.9 [facility] RBC Auto (Bld) [#/Vol]Ordere d By: Zaynab Pina on 09-25-2024 RBC (Bld) [#/Vol] 3.50 10*6/uL Low 4.2-5.4 [facility] Serum creatinine measurement (mass/volume)Ordered By: Zaynab Pina on 09-25-2024 Creatinine [Mass/Vol] 0.62 mg/dL Low 0.70-1.20 [facility] Serum glucose measurement (m ass/volume)Ordered By: Zaynab Pina on 09-25-2024 Glucose [Mass/Vol] 79 mg/dL 70-99 [facility] Serum or plasma calcium monica urement (mass/volume)Ordered By: Zaynab Pina on 09-25-2024 Calcium [Mass/Vol] 8.9 mg/dL 7.6-11.0 [facility] Serum or plasma urea nitroge n measurement (mass/volume)Ordered By: Zaynab Pina on 09-25-2024 Urea nitrogen [Mass/Vol] 18 mg/dL 4-19 [facility] Sodium levelOrdered By: Claudio Pina on 09-25-2024 Sodium [Moles/Vol] 135 mmol/L 133-145 [facility] White blood cell (WBC) count Ordered By: Zaynab Pina on 09-25-2024 WBC (Bld) [#/Vol] 5.9 10*3/uL 4.4-11.0 [facility] International normalized rat io (INR) measurement by fingerstickOrdered By: Zaynab Pina on 09-22-2024 INR Coag (BldC) [Relative time] 2.3 [facility] Comment on above: Critical Value > 4.0 Whole blood prothrombin time Ordered By: Zaynab Pina on 09-22-2024 PT Coag (Bld) [Time] 25.1 s High 11.7-14.9 [facility] Absolute lymphocyte countOrd ered By: Zaynab Pina on 09-18-2024 Lymphocytes Auto (Unsp spec) [#/Vol] 1.05 10*3/uL 0.83-4.51 [facility] Absolute neutrophil countOrd ered By: Zaynab Pina on 09-18-2024 Neutrophils (Bld) [#/Vol] 3.8 10*3/uL 2.0-7.7 [facility] Anion gap in Serum or Plasma Ordered By: Zaynab Pina on 09-18-2024 Anion gap [Moles/Vol] 13 mmol/L 5-15 [facility] Automated lymphocyte count a s percentage of total leukocytesOrdered By: Zaynab Pina on 09-18-2024 Lymphocytes/100 WBC Auto (Unsp spec) 18.2 % Low 19-41 [facility] BUN/creatinine ratioOrdered By: Zaynab Pina on 09-18-2024 Urea nitrogen/Creatinine [Mass ratio] 24.9 mg/mg High 10-20 [facility] Basophil percentageOrdered B y: Zaynab Pina on 09-18-2024 Basophils/100 WBC (Bld) 0.7 % 0-1 [facility] Carbon dioxide, total [Moles /volume] in Central venous bloodOrdered By: Zaynab Pina on 09-18-2024 CO2 [Moles/Vol] 20.4 mmol/L Low 21.0-32.0 [facility] Chloride assayOrdered By: amilcar Pina on 09-18-2024 Chloride [Moles/Vol] 102 mmol/L 98-108 [facility] Eosinophil percentageOrdered By: Zaynab Pina on 09-18-2024 Eosinophils/100 WBC (Bld) 2.6 % 0-5 [facility] Erythrocyte distribution wid th ratioOrdered By: Zaynab Pina on 09-18-2024 Erythrocyte distribution width (RBC) [Ratio] 14.8 % High 11.6-14.6 [facility] Erythrocyte distribution wid th standard deviationOrdered By: Zaynab Pina on 09-18-2024 Erythrocyte distribution width (RBC) [Ratio] 53.0 fl High 35.1-43.9 [facility] Glomerular filtration rate ( GFR) estimation/1.73 sq m using serum, plasma, or whole bOrdered By: Zaynab Pina on 09-18-2024 GFR/1.73 sq M.predicted among non-blacks MDRD (S/P/Bld) [Vol rate/Area] 91 mL/min/{1.73_m2} >60 [facility] Comment on above: mL/min/1.73m2 CKD-EP I Creatinine Equation (2020) Hematocrit Auto (Bld) [Volum e fraction]Ordered By: Zaynab Pina on 09-18-2024 Hematocrit (Bld) [Volume fraction] 34.0 % Low 37-47 [facility] Hemoglobin measurementOrdere d By: Zaynab Pina on 09-18-2024 Hemoglobin (Bld) [Mass/Vol] 11.4 g/dL Low 12.0-15.0 [facility] Immature granulocytes/100 WB C Auto (Bld)Ordered By: Zaynab Pina 09-18-2024 Immature granulocytes/100 WBC (Bld) 0.700 % 0.0-0.9 [facility] Comment on above: IG% - Immature Granu locytes (promyelocytes, myelocytes and metamyelocytes) > 1% indicates that a LEFT SHIFT is Present. International normalized rat io (INR) calculationOrdered By: Zaynab Pina on 09-18-2024 INR Coag (Bld) [Relative time] 3.0 {INR} [facility] MCV (mean corpuscular volume ) determinationOrdered By: Zaynab Pina 09-18-2024 MCV (RBC) [Entitic vol] 97.4 fL 81-99 [facility] Mean corpuscular hemoglobin (MCH) determinationOrdered By: Zaynab Pina 09-18-2024 MCH (RBC) [Entitic mass] 32.7 pg High 27.0-32.0 [facility] Mean corpuscular hemoglobin concentration (MCHC) determinationOrdered By: Zaynab Pina on 09-18-2024 MCHC (RBC) [Mass/Vol] 33.5 g/dL 32-36 [facility] Mean platelet volume determi nationOrdered By: Zaynab Pina on 09-18-2024 Platelet mean volume (Bld) [Entitic vol] 10.9 fL 6.2-12.0 [facility] Monocyte percentageOrdered B y: Zaynab Pina on 09-18-2024 Monocytes/100 WBC (Bld) 11.4 % High 0-10 [facility] Neutrophil percentageOrdered By: Claudiotopekajoesph Pina on 09-18-2024 Neutrophils/100 WBC (Bld) 66.4 % 47-70 [facility] Nucleated red blood cell per centageOrdered By: Zaynab Pina on 09-18-2024 Nucleated RBC/100 WBC (Bld) [Ratio] 0 % 0-5 [facility] Platelet countOrdered By: Christine elmershala Pina on 09-18-2024 Platelets (Bld) [#/Vol] 179 10*3/uL 150-450 [facility] Potassium measurement (mass/ volume)Ordered By: Zaynab Pina on 09-18-2024 Potassium (Unsp spec) [Mass/Vol] 3.9 mmol/L 3.3-5.1 [facility] Prothrombin timeOrdered By: Zaynab Pina on 09-18-2024 PT Coag (PPP) [Time] 31.5 s High 11.7-14.9 [facility] RBC Auto (Bld) [#/Vol]Ordere d By: Zaynab Pina on 09-18-2024 RBC (Bld) [#/Vol] 3.49 10*6/uL Low 4.2-5.4 [facility] Serum creatinine measurement (mass/volume)Ordered By: Zaynab Pina on 09-18-2024 Creatinine [Mass/Vol] 0.63 mg/dL Low 0.70-1.20 [facility] Serum glucose measurement (m ass/volume)Ordered By: Zaynab Pnia on 09-18-2024 Glucose [Mass/Vol] 82 mg/dL 70-99 [facility] Serum or plasma calcium monica urement (mass/volume)Ordered By: Christineelmershala Pina on 09-18-2024 Calcium [Mass/Vol] 9.0 mg/dL 7.6-11.0 [facility] Serum or plasma urea nitroge n measurement (mass/volume)Ordered By: Christineelmershala Dilipjohnny on 09-18-2024 Urea nitrogen [Mass/Vol] 16 mg/dL 4-19 [facility] Sodium levelOrdered By: Claudio Alvesmarily on 09-18-2024 Sodium [Moles/Vol] 135 mmol/L 133-145 [facility] White blood cell (WBC) count Ordered By: Christineelmertanjoesph Cherryjohnny on 09-18-2024 WBC (Bld) [#/Vol] 5.8 10*3/uL 4.4-11.0 [facility] International normalized rat io (INR) calculationOrdered By: Zaynab Cherrynatimarily on 09-15-2024 INR Coag (Bld) [Relative time] 1.8 {INR} [facility] Prothrombin timeOrdered By: Christineelmershala Dilipjohnny on 09-15-2024 PT Coag (PPP) [Time] 21.3 s High 11.7-14.9 [facility] Absolute lymphocyte countOrd ered By: Christineamilcar Cherrynatimarily on 09-11-2024 Lymphocytes Auto (Unsp spec) [#/Vol] 1.10 10*3/uL 0.83-4.51 [facility] Absolute neutrophil countOrd ered By: Christineelmertanjoesph Cherrynatimarily on 09-11-2024 Neutrophils (Bld) [#/Vol] 3.6 10*3/uL 2.0-7.7 [facility] Anion gap in Serum or Plasma Ordered By: Zaynab Dilipjohnny on 09-11-2024 Anion gap [Moles/Vol] 12 mmol/L 5-15 [facility] Automated lymphocyte count a s percentage of total leukocytesOrdered By: Christineamilcar Cherrynatimarily 09-11-2024 Lymphocytes/100 WBC Auto (Unsp spec) 19.9 % 19-41 [facility] BUN/creatinine ratioOrdered By: Zaynab Pina on 09-11-2024 Urea nitrogen/Creatinine [Mass ratio] 24.2 mg/mg High 10-20 [facility] Basophil percentageOrdered B y: Claudiotanjoesph Cherrynatimarily on 09-11-2024 Basophils/100 WBC (Bld) 0.5 % 0-1 [facility] Carbon dioxide, total [Moles /volume] in Central venous bloodOrdered By: Zaynab Pina on 09-11-2024 CO2 [Moles/Vol] 21.7 mmol/L 21.0-32.0 [facility] Chloride assayOrdered By: Christine elmershala Pina on 09-11-2024 Chloride [Moles/Vol] 103 mmol/L 98-108 [facility] Eosinophil percentageOrdered By: Christineamilcar Cherrynatimarily on 09-11-2024 Eosinophils/100 WBC (Bld) 2.2 % 0-5 [facility] Erythrocyte distribution wid th ratioOrdered By: Zaynab Pina on 09-11-2024 Erythrocyte distribution width (RBC) [Ratio] 15.5 % High 11.6-14.6 [facility] Erythrocyte distribution wid th standard deviationOrdered By: Christineamilcar Cherrynatimarily on 09-11-2024 Erythrocyte distribution width (RBC) [Ratio] 55.0 fl High 35.1-43.9 [facility] Glomerular filtration rate ( GFR) estimation/1.73 sq m using serum, plasma, or whole bOrdered By: Zaynab Pina on 09-11-2024 GFR/1.73 sq M.predicted among non-blacks MDRD (S/P/Bld) [Vol rate/Area] 91 mL/min/{1.73_m2} >60 [facility] Comment on above: mL/min/1.73m2 CKD-EP I Creatinine Equation (2020) Hematocrit Auto (Bld) [Volum e fraction]Ordered By: Zaynab Pina on 09-11-2024 Hematocrit (Bld) [Volume fraction] 33.3 % Low 37-47 [facility] Hemoglobin measurementOrdere d By: Zaynab Pina on 09-11-2024 Hemoglobin (Bld) [Mass/Vol] 11.1 g/dL Low 12.0-15.0 [facility] Immature granulocytes/100 WB C Auto (Bld)Ordered By: Zaynab Pina on 09-11-2024 Immature granulocytes/100 WBC (Bld) 0.500 % 0.0-0.9 [facility] Comment on above: IG% - Immature Granu locytes (promyelocytes, myelocytes and metamyelocytes) > 1% indicates that a LEFT SHIFT is Present. International normalized rat io (INR) calculationOrdered By: Zaynab Pina on 09-11-2024 INR Coag (Bld) [Relative time] 2.1 {INR} [facility] MCV (mean corpuscular volume ) determinationOrdered By: Zaynab Pina on 09-11-2024 MCV (RBC) [Entitic vol] 96.5 fL 81-99 [facility] Mean corpuscular hemoglobin (MCH) determinationOrdered By: Zaynab Pina on 09-11-2024 MCH (RBC) [Entitic mass] 32.2 pg High 27.0-32.0 [facility] Mean corpuscular hemoglobin concentration (MCHC) determinationOrdered By: Zaynab Pina on 09-11-2024 MCHC (RBC) [Mass/Vol] 33.3 g/dL 32-36 [facility] Mean platelet volume determi nationOrdered By: Zaynab Pina on 09-11-2024 Platelet mean volume (Bld) [Entitic vol] 10.6 fL 6.2-12.0 [facility] Monocyte percentageOrdered B y: Zaynab Pina on 09-11-2024 Monocytes/100 WBC (Bld) 12.0 % High 0-10 [facility] Neutrophil percentageOrdered By: Zaynab Pina on 09-11-2024 Neutrophils/100 WBC (Bld) 64.9 % 47-70 [facility] Nucleated red blood cell per centageOrdered By: Zaynab Pina on 09-11-2024 Nucleated RBC/100 WBC (Bld) [Ratio] 0 % 0-5 [facility] Platelet countOrdered By: Christine Pina on 09-11-2024 Platelets (Bld) [#/Vol] 202 10*3/uL 150-450 [facility] Potassium measurement (mass/ volume)Ordered By: Zaynab Pina on 09-11-2024 Potassium (Unsp spec) [Mass/Vol] 3.8 mmol/L 3.3-5.1 [facility] Prothrombin timeOrdered By: Zaynab Pina on 09-11-2024 PT Coag (PPP) [Time] 23.8 s High 11.7-14.9 [facility] RBC Auto (Bld) [#/Vol]Ordere d By: Zaynab Pina on 09-11-2024 RBC (Bld) [#/Vol] 3.45 10*6/uL Low 4.2-5.4 [facility] Serum creatinine measurement (mass/volume)Ordered By: Zaynab Pina on 09-11-2024 Creatinine [Mass/Vol] 0.65 mg/dL Low 0.70-1.20 [facility] Serum glucose measurement (m ass/volume)Ordered By: Zaynab Pina on 09-11-2024 Glucose [Mass/Vol] 80 mg/dL 70-99 [facility] Serum or plasma calcium monica urement (mass/volume)Ordered By: Zaynab Pina on 09-11-2024 Calcium [Mass/Vol] 9.0 mg/dL 7.6-11.0 [facility] Serum or plasma urea nitroge n measurement (mass/volume)Ordered By: Zaynab Pina on 09-11-2024 Urea nitrogen [Mass/Vol] 16 mg/dL 4-19 [facility] Sodium levelOrdered By: Claudio powellhasmukh Yovani on 09-11-2024 Sodium [Moles/Vol] 137 mmol/L 133-145 [facility] White blood cell (WBC) count Ordered By: Zaynab Pina on 09-11-2024 WBC (Bld) [#/Vol] 5.5 10*3/uL 4.4-11.0 [facility] International normalized rat io (INR) measurement by fingerstickOrdered By: Zaynab Pina on 09-08-2024 INR Coag (BldC) [Relative time] 2.4 [facility] Comment on above: Critical Value > 4.0 Whole blood prothrombin time Ordered By: Zaynab Pina on 09-08-2024 PT Coag (Bld) [Time] 25.4 s High 11.7-14.9 [facility] Absolute lymphocyte countOrd ered By: Zaynab Pina on 09-04-2024 Lymphocytes Auto (Unsp spec) [#/Vol] 1.06 10*3/uL 0.83-4.51 [facility] Absolute neutrophil countOrd ered By: Claudiojoesph Cherrynatimarily on 09-04-2024 Neutrophils (Bld) [#/Vol] 4.0 10*3/uL 2.0-7.7 [facility] Anion gap in Serum or Plasma Ordered By: Zaynab Pina on 09-04-2024 Anion gap [Moles/Vol] 13 mmol/L 5-15 [facility] Automated lymphocyte count a s percentage of total leukocytesOrdered By: Zaynab Pina on 09-04-2024 Lymphocytes/100 WBC Auto (Unsp spec) 18.2 % Low 19-41 [facility] BUN/creatinine ratioOrdered By: Zaynab Pina on 09-04-2024 Urea nitrogen/Creatinine [Mass ratio] 23.8 mg/mg High 10-20 [facility] Basophil percentageOrdered B y: Zaynab Pina on 09-04-2024 Basophils/100 WBC (Bld) 0.5 % 0-1 [facility] Carbon dioxide, total [Moles /volume] in Central venous bloodOrdered By: Zaynab Pina on 09-04-2024 CO2 [Moles/Vol] 21.1 mmol/L 21.0-32.0 [facility] Chloride assayOrdered By: Christine Pian on 09-04-2024 Chloride [Moles/Vol] 102 mmol/L 98-108 [facility] Eosinophil percentageOrdered By: Zaynab Pina on 09-04-2024 Eosinophils/100 WBC (Bld) 1.9 % 0-5 [facility] Erythrocyte distribution wid th ratioOrdered By: Zaynab Pina on 09-04-2024 Erythrocyte distribution width (RBC) [Ratio] 15.8 % High 11.6-14.6 [facility] Erythrocyte distribution wid th standard deviationOrdered By: Zaynab Pina on 09-04-2024 Erythrocyte distribution width (RBC) [Ratio] 54.7 fl High 35.1-43.9 [facility] Glomerular filtration rate ( GFR) estimation/1.73 sq m using serum, plasma, or whole bOrdered By: Zaynab Pina on 09-04-2024 GFR/1.73 sq M.predicted among non-blacks MDRD (S/P/Bld) [Vol rate/Area] 91 mL/min/{1.73_m2} >60 [facility] Comment on above: mL/min/1.73m2 CKD-EP I Creatinine Equation (2020) Hematocrit Auto (Bld) [Volum e fraction]Ordered By: Zaynab Pina on 09-04-2024 Hematocrit (Bld) [Volume fraction] 32.5 % Low 37-47 [facility] Hemoglobin measurementOrdere d By: Claudiotopekajoesph Pina 09-04-2024 Hemoglobin (Bld) [Mass/Vol] 11.0 g/dL Low 12.0-15.0 [facility] Immature granulocytes/100 WB C Auto (Bld)Ordered By: Zaynab Pina 09-04-2024 Immature granulocytes/100 WBC (Bld) 0.700 % 0.0-0.9 [facility] Comment on above: IG% - Immature Granu locytes (promyelocytes, myelocytes and metamyelocytes) > 1% indicates that a LEFT SHIFT is Present. International normalized rat io (INR) calculationOrdered By: Zaynab Pina 09-04-2024 INR Coag (Bld) [Relative time] 2.5 {INR} [facility] MCV (mean corpuscular volume ) determinationOrdered By: Zaynab Pina 09-04-2024 MCV (RBC) [Entitic vol] 94.2 fL 81-99 [facility] Mean corpuscular hemoglobin (MCH) determinationOrdered By: Zaynab Pina on 09-04-2024 MCH (RBC) [Entitic mass] 31.9 pg 27.0-32.0 [facility] Mean corpuscular hemoglobin concentration (MCHC) determinationOrdered By: Zaynab Pina on 09-04-2024 MCHC (RBC) [Mass/Vol] 33.8 g/dL 32-36 [facility] Mean platelet volume determi nationOrdered By: Zaynab Pina on 09-04-2024 Platelet mean volume (Bld) [Entitic vol] 10.8 fL 6.2-12.0 [facility] Monocyte percentageOrdered B y: Zaynab Pina on 09-04-2024 Monocytes/100 WBC (Bld) 11.0 % High 0-10 [facility] Neutrophil percentageOrdered By: Zaynab Pina on 09-04-2024 Neutrophils/100 WBC (Bld) 67.7 % 47-70 [facility] Nucleated red blood cell per centageOrdered By: Zaynab Pina on 09-04-2024 Nucleated RBC/100 WBC (Bld) [Ratio] 0 % 0-5 [facility] Platelet countOrdered By: Christine elmershala Pina on 09-04-2024 Platelets (Bld) [#/Vol] 224 10*3/uL 150-450 [facility] Potassium measurement (mass/ volume)Ordered By: Zaynab Pina on 09-04-2024 Potassium (Unsp spec) [Mass/Vol] 3.9 mmol/L 3.3-5.1 [facility] Prothrombin timeOrdered By: Zaynab Pina on 09-04-2024 PT Coag (PPP) [Time] 27.6 s High 11.7-14.9 [facility] RBC Auto (Bld) [#/Vol]Ordere d By: Zaynab Pina on 09-04-2024 RBC (Bld) [#/Vol] 3.45 10*6/uL Low 4.2-5.4 [facility] Serum creatinine measurement (mass/volume)Ordered By: Zaynab Pina on 07-17-2025 Creatinine [Mass/Vol] 0.63 mg/dL Low 0.70-1.20 [facility] Serum glucose measurement (m ass/volume)Ordered By: Zaynab Pina on 09-04-2024 Glucose [Mass/Vol] 78 mg/dL 70-99 [facility] Serum or plasma calcium monica urement (mass/volume)Ordered By: Zaynab Pina on 09-04-2024 Calcium [Mass/Vol] 9.2 mg/dL 7.6-11.0 [facility] Serum or plasma urea nitroge n measurement (mass/volume)Ordered By: Zaynab Pina on 09-04-2024 Urea nitrogen [Mass/Vol] 15 mg/dL 4-19 [facility] Sodium levelOrdered By: Claudio powellhasmukh Yovani on 09-04-2024 Sodium [Moles/Vol] 136 mmol/L 133-145 [facility] White blood cell (WBC) count Ordered By: Zaynab Pina on 09-04-2024 WBC (Bld) [#/Vol] 5.8 10*3/uL 4.4-11.0 [facility] International normalized rat io (INR) measurement by fingerstickOrdered By: Zaynab Pina on 09-01-2024 INR Coag (BldC) [Relative time] 2.7 [place] [facility] Comment on above: Critical Value > 4.0 Whole blood prothrombin time Ordered By: Zaynab Pina on 09-01-2024 PT Coag (Bld) [Time] 28.1 s High 11.7-14.9 [facility] Prothrombin Time w/INRon INR Normal [facility] Comment on above: Result Comment: Canc elled via OM: Order cancelled - Patient discharged Performed By: #### L 300.3900 #### [facility] [address] [place], [place], [id number] PROTIME Normal 11.7-14.9 [facility] Comment on above: Result Comment: Canc elled via OM: Order cancelled - Patient discharged Performed By: #### L 300.3900 #### [facility] [address] [place], [address] Absolute lymphocyte countOrd ered By: Zaynab Pina on 08-28-2024 Lymphocytes Auto (Unsp spec) [#/Vol] 1.04 10*3/uL 0.83-4.51 [facility] Absolute neutrophil countOrd ered By: Zaynab Pina on 08-28-2024 Neutrophils (Bld) [#/Vol] 4.0 10*3/uL 2.0-7.7 [facility] Anion gap in Serum or Plasma Ordered By: Zaynab Pina on 08-28-2024 Anion gap [Moles/Vol] 10 mmol/L 5-15 [facility] Automated lymphocyte count a s percentage of total leukocytesOrdered By: Zaynab Pina on 08-28-2024 Lymphocytes/100 WBC Auto (Unsp spec) 17.6 % Low 19-41 [facility] BUN/creatinine ratioOrdered By: Zaynab Pina on 08-28-2024 Urea nitrogen/Creatinine [Mass ratio] 23.6 mg/mg High 10-20 [facility] Basophil percentageOrdered B y: Zaynab Pina on 08-28-2024 Basophils/100 WBC (Bld) 0.7 % 0-1 [facility] Bilirubin, totalOrdered By: Zaynab Pina on 08-28-2024 Bilirubin [Mass/Vol] 0.42 mg/dL 0.00-1.30 [facility] Carbon dioxide, total [Moles /volume] in Central venous bloodOrdered By: Zaynab Pina on 08-28-2024 CO2 [Moles/Vol] 23.7 mmol/L 21.0-32.0 [facility] Chloride assayOrdered By: Christine Pina on 08-28-2024 Chloride [Moles/Vol] 103 mmol/L 98-108 [facility] Eosinophil percentageOrdered By: Zaynab Alvese on 08-28-2024 Eosinophils/100 WBC (Bld) 1.7 % 0-5 [facility] Erythrocyte distribution wid th ratioOrdered By: Zaynab Pina on 08-28-2024 Erythrocyte distribution width (RBC) [Ratio] 16.8 % High 11.6-14.6 [facility] Erythrocyte distribution wid th standard deviationOrdered By: elmertopekajoesph Pina on 08-28-2024 Erythrocyte distribution width (RBC) [Ratio] 58.6 fl High 35.1-43.9 [facility] Glomerular filtration rate ( GFR) estimation/1.73 sq m using serum, plasma, or whole bOrdered By: amilcar Pina on 08-28-2024 GFR/1.73 sq M.predicted among non-blacks MDRD (S/P/Bld) [Vol rate/Area] 90 mL/min/{1.73_m2} >60 [facility] Comment on above: mL/min/1.73m2 CKD-EP I Creatinine Equation (2020) Hematocrit Auto (Bld) [Volum e fraction]Ordered By: [facility] Dilipmarily 08-28-2024 Hematocrit (Bld) [Volume fraction] 33.3 % Low 37-47 [facility] Hemoglobin measurementOrdere d By: Zaynab Pina 08-28-2024 Hemoglobin (Bld) [Mass/Vol] 10.9 g/dL Low 12.0-15.0 [facility] Immature granulocytes/100 WB C Auto (Bld)Ordered By: Zaynab Pina 08-28-2024 Immature granulocytes/100 WBC (Bld) 0.300 % 0.0-0.9 [facility] Comment on above: IG% - Immature Granu locytes (promyelocytes, myelocytes and metamyelocytes) > 1% indicates that a LEFT SHIFT is Present. International normalized rat io (INR) calculationOrdered By: Zaynab Pina 08-28-2024 INR Coag (Bld) [Relative time] 2.2 {INR} [facility] - Chemistry and C hemistry - challengeOrdered By: amilcar Pina 08-28-2024 AST [Catalytic activity/Vol] 23 U/L <32 [facility] MCV (mean corpuscular volume ) determinationOrdered By: [facility] 08-28-2024 MCV (RBC) [Entitic vol] 96.0 fL 81-99 [facility] Mean corpuscular hemoglobin (MCH) determinationOrdered By: Zaynab Pina on 08-28-2024 MCH (RBC) [Entitic mass] 31.4 pg 27.0-32.0 [facility] Mean corpuscular hemoglobin concentration (MCHC) determinationOrdered By: Zaynab Pina on 08-28-2024 MCHC (RBC) [Mass/Vol] 32.7 g/dL 32-36 [facility] Mean platelet volume determi nationOrdered By: Zaynab Pina on 08-28-2024 Platelet mean volume (Bld) [Entitic vol] 10.9 fL 6.2-12.0 [facility] Monocyte percentageOrdered B y: Zaynab Pina on 08-28-2024 Monocytes/100 WBC (Bld) 11.5 % High 0-10 [facility] Neutrophil percentageOrdered By: Claudiotopekajoesph Pina on 08-28-2024 Neutrophils/100 WBC (Bld) 68.2 % 47-70 [facility] No Panel InformationOrdered By: Zaynab Pina on 08-28-2024 23 U/L <32 [facility] Nucleated red blood cell per centageOrdered By: Zaynab Pina on 08-28-2024 Nucleated RBC/100 WBC (Bld) [Ratio] 0 % 0-5 [facility] Platelet countOrdered By: Christine Pina on 08-28-2024 Platelets (Bld) [#/Vol] 183 10*3/uL 150-450 [facility] Potassium measurement (mass/ volume)Ordered By: Zaynab Pina on 08-28-2024 Potassium (Unsp spec) [Mass/Vol] 4.0 mmol/L 3.3-5.1 [facility] Prothrombin Time w/INRon INR Normal [facility] Comment on above: Result Comment: Canc elled via OM: Order cancelled - Patient discharged Performed By: #### L 992.7346 #### [facility] [employer] [place], [address] PROTIME Normal 11.7-14.9 [facility] Comment on above: Result Comment: Canc elled via OM: Order cancelled - Patient discharged Performed By: #### L 300.3900 #### [facility] [address] [place], [place], [id number] Prothrombin timeOrdered By: Zaynab Pina on 08-28-2024 PT Coag (PPP) [Time] 24.5 s High 11.7-14.9 [facility] RBC Auto (Bld) [#/Vol]Ordere d By: Zaynab Pina on 08-28-2024 RBC (Bld) [#/Vol] 3.47 10*6/uL Low 4.2-5.4 [facility] Serum creatinine measurement (mass/volume)Ordered By: Zaynab Pina on 08-28-2024 Creatinine [Mass/Vol] 0.66 mg/dL Low 0.70-1.20 [facility] Serum globulin measurementOr dered By: Zaynab Pina on 08-28-2024 Globulin (S) [Mass/Vol] 2.6 g/dL 2.2-4.2 [facility] Serum glucose measurement (m ass/volume)Ordered By: Zaynab Pina on 08-28-2024 Glucose [Mass/Vol] 88 mg/dL 70-99 [facility] Serum or plasma alanine llamas otransferase (ALT) measurementOrdered By: Zaynab Pina on 08-28-2024 ALT [Catalytic activity/Vol] 16 U/L <35 [facility] Serum or plasma albumin monica urement (mass/volume)Ordered By: Zaynab Pina on 08-28-2024 Albumin [Mass/Vol] 3.8 g/dL 3.4-4.8 [facility] Serum or plasma albumin/glob ulin mass ratioOrdered By: Zaynab Pina on 08-28-2024 Albumin/Globulin [Mass ratio] 1.5 {ratio} 0.9-2.4 [facility] Serum or plasma alkaline juan m sphatase measurementOrdered By: Zaynab Pina on 08-28-2024 ALP [Catalytic activity/Vol] 101 U/L 35-104 [facility] Serum or plasma calcium monica urement (mass/volume)Ordered By: Zaynab Pina on 08-28-2024 Calcium [Mass/Vol] 9.1 mg/dL 7.6-11.0 [facility] Serum or plasma urea nitroge n measurement (mass/volume)Ordered By: Zaynab Pina on 08-28-2024 Urea nitrogen [Mass/Vol] 16 mg/dL 4-19 [facility] Sodium levelOrdered By: Claudio Pina on 08-28-2024 Sodium [Moles/Vol] 137 mmol/L 133-145 [facility] Total proteinOrdered By: Malik Pina on 08-28-2024 Protein [Mass/Vol] 6.3 g/dL 5.9-8.4 [facility] White blood cell (WBC) count Ordered By: Zaynab Pina on 08-28-2024 WBC (Bld) [#/Vol] 5.9 10*3/uL 4.4-11.0 [facility] International normalized rat io (INR) calculationOrdered By: Jasmyn Chan on 08-27-2024 INR Coag (Bld) [Relative time] 1.7 {INR} [facility] Prothrombin Time w/INRon INR Coag (PPP) [Relative time] 1.7 {INR} Normal [facility] Comment on above: Performed By: #### L 300.3900 #### [facility] [address] [place], [address] ( PT Coag (PPP) [Time] 20.6 s High 11.7-14.9 [facility] Comment on above: Performed By: #### L 300.3900 #### [facility] [address] [place], [address] Prothrombin timeOrdered By: Jasmyn Chan on 08-27-2024 PT Coag (PPP) [Time] 20.6 s High 11.7-14.9 [facility] Prothrombin Time w/INRon INR Coag (PPP) [Relative time] 1.4 {INR} Normal [facility] Comment on above: Performed By: #### L 500.2500, L100.0100 #### [facility] [address] [place], [address] PT Coag (PPP) [Time] 17.7 s High 11.7-14.9 [facility] Comment on above: Performed By: #### L 500.2500, L100.0100 #### [facility] [address] [place], [address] Prothrombin Time w/INRon INR Coag (PPP) [Relative time] 1.4 {INR} Normal [facility] Comment on above: Performed By: #### L 300.3900 #### [facility] [address] [place], [address] PT Coag (PPP) [Time] 17.7 s High 11.7-14.9 [facility] Comment on above: Performed By: #### L 300.3900 #### [facility] [address] [place], [address] Absolute lymphocyte countOrd ered By: Erasmo House on 08-24-2024 Lymphocytes Auto (Unsp spec) [#/Vol] 0.85 10*3/uL 0.83-4.51 [facility] Absolute neutrophil countOrd ered By: Erasmo House on 08-24-2024 Neutrophils (Bld) [#/Vol] 3.7 10*3/uL 2.0-7.7 [facility] Anion gap in Serum or Plasma Ordered By: Erasmo House on 08-24-2024 Anion gap [Moles/Vol] 13 mmol/L 5-15 [facility] Automated lymphocyte count a s percentage of total leukocytesOrdered By: Erasmo House on 08-24-2024 Lymphocytes/100 WBC Auto (Unsp spec) 15.8 % Low 19-41 [facility] BUN/creatinine ratioOrdered By: Erasmo House on 08-24-2024 Urea nitrogen/Creatinine [Mass ratio] 22.5 mg/mg High 10-20 [facility] Basic Metabolic Profile (BMP )on 08-24-2024 BUN/CRE 22.5 RATIO High 10-20 [facility] Comment on above: Performed By: #### L 100.0100, L300.3900, L500.2500 #### [facility] [address] [place], [address] Calcium [Mass/Vol] 9.0 mg/dL Normal 7.6-11.0 [facility] Comment on above: Performed By: #### L 100.0100, L300.3900, L500.2500 #### [facility] [address] [place], [address] Chloride [Moles/Vol] 105 mmol/L Normal 98-108 [facility] Comment on above: Performed By: #### L 100.0100, L300.3900, L500.2500 #### [facility] [address] [place], [address] CO2 [Moles/Vol] 21.9 mmol/L Normal 21.0-32.0 [facility] Comment on above: Performed By: #### L 100.0100, L300.3900, L500.2500 #### [facility] [address] [place], [address] Creatinine [Mass/Vol] 0.65 mg/dL Low 0.70-1.20 [facility] Comment on above: Performed By: #### L 100.0100, L300.3900, L500.2500 #### [facility] [address] [place], [address] ECRCL 48.72 ml/min Low 50-250 [facility] Comment on above: Performed By: #### L 100.0100, L300.3900, L500.2500 #### [facility] [address] [place], [address] GAP 13 Normal 5-15 [facility] Comment on above: Performed By: #### L 100.0100, L300.3900, L500.2500 #### [facility] [address] [place], [address] GFR/1.73 sq M.predicted among non-blacks MDRD (S/P/Bld) [Vol rate/Area] 91 mL/min/{1.73_m2} Normal >60 [facility] Comment on above: Result Comment: mL/m in/1.73m2 CKD-EPI Creatinine Equation (2020) Performed By: #### L 100.0100, L300.3900, L500.2500 #### [facility] [address] [place], [address] Glucose [Mass/Vol] 90 mg/dL Normal 70-99 [facility] Comment on above: Performed By: #### L 100.0100, L300.3900, L500.2500 #### [facility] [address] [place], [address] Potassium [Moles/Vol] 3.9 mmol/L Normal 3.3-5.1 [facility] Comment on above: Performed By: #### L 100.0100, L300.3900, L500.2500 #### [facility] [address] [place], [address] Sodium [Moles/Vol] 140 mmol/L Normal 133-145 [facility] Comment on above: Performed By: #### L 100.0100, L300.3900, L500.2500 #### [facility] [address] [place], [address] Urea nitrogen [Mass/Vol] 15 mg/dL Normal 4-19 [facility] Comment on above: Performed By: #### L 100.0100, L300.3900, L500.2500 #### [facility] [address] [place], [address] Basophil percentageOrdered B y: Erasmo House on 08-24-2024 Basophils/100 WBC (Bld) 0.6 % 0-1 [facility] CBC W/Diff, Automatedon Absolute Lymph 0.85 X10 3/uL Normal 0.83-4.51 [facility] Comment on above: Performed By: #### L 100.0100, L300.3900, L500.2500 #### [facility] [address] [place], [address] Absolute Neut 3.7 X10 3/uL Normal 2.0-7.7 [facility] Comment on above: Performed By: #### L 100.0100, L300.3900, L500.2500 #### [facility] [address] [place], [address] Basophils/100 WBC (Bld) 0.6 % Normal 0-1 [facility] Comment on above: Performed By: #### L 100.0100, L300.3900, L500.2500 #### [facility] [address] [place], [address] Eosinophils/100 WBC (Bld) 1.5 % Normal 0-5 [facility] Comment on above: Performed By: #### L 100.0100, L300.3900, L500.2500 #### [facility] [address] [place], [address] Erythrocyte distribution width (RBC) [Ratio] 17.2 % High 11.6-14.6 [facility] Comment on above: Performed By: #### L 100.0100, L300.3900, L500.2500 #### [facility] [address] [place], [address] Hematocrit (Bld) [Volume fraction] 34.6 % Low 37-47 [facility] Comment on above: Performed By: #### L 100.0100, L300.3900, L500.2500 #### [facility] [address] [place], [address] Hemoglobin (Bld) [Mass/Vol] 11.4 g/dL Low 12.0-15.0 [facility] Comment on above: Performed By: #### L 100.0100, L300.3900, L500.2500 #### [facility] [address] [place], [address] IG% 0.400 Normal 0.0-0.9 [facility] Comment on above: Result Comment: IG% - Immature Granulocytes (promyelocytes, myelocytes and metamyelocytes) > 1% indicates that a LEFT SHIFT is Present. Performed By: #### L 100.0100, L300.3900, L500.2500 #### [facility] [address] [place], [address] Lymphocytes/100 WBC (Bld) 15.8 % Low 19-41 [facility] Comment on above: Performed By: #### L 100.0100, L300.3900, L500.2500 #### [facility] [address] [place], [address] MCH (RBC) [Entitic mass] 31.8 pg Normal 27.0-32.0 [facility] Comment on above: Performed By: #### L 100.0100, L300.3900, L500.2500 #### [facility] [address] [place], [address] MCHC (RBC) [Mass/Vol] 32.9 g/dL Normal 32-36 [facility] Comment on above: Performed By: #### L 100.0100, L300.3900, L500.2500 #### [facility] [address] [place], [address] MCV (RBC) [Entitic vol] 96.6 fL Normal 81-99 [facility] Comment on above: Performed By: #### L 100.0100, L300.3900, L500.2500 #### [facility] [address] [place], [address] Monocytes/100 WBC (Bld) 12.6 % High 0-10 [facility] Comment on above: Performed By: #### L 100.0100, L300.3900, L500.2500 #### [facility] [address] [place], [address] Neutrophils/100 WBC (Bld) 69.1 % Normal 47-70 [facility] Comment on above: Performed By: #### L 100.0100, L300.3900, L500.2500 #### [facility] [address] [place], [address] Nucleated RBC (Bld) [#/Vol] 0 10*3/uL Normal 0-5 [facility] Comment on above: Performed By: #### L 100.0100, L300.3900, L500.2500 #### [facility] [address] [place], [address] Platelet mean volume (Bld) [Entitic vol] 11.0 fL Normal 6.2-12.0 [facility] Comment on above: Performed By: #### L 100.0100, L300.3900, L500.2500 #### [facility] [address] [place], [address] Platelets (Bld) [#/Vol] 154 10*3/uL Normal 150-450 [facility] Comment on above: Performed By: #### L 100.0100, L300.3900, L500.2500 #### [facility] [address] [place], [address] RBC (Bld) [#/Vol] 3.58 10*6/uL Low 4.2-5.4 [facility] Comment on above: Performed By: #### L 100.0100, L300.3900, L500.2500 #### [facility] [address] [place], [address] RDW SD 61.1 fl High 35.1-43.9 [facility] Comment on above: Performed By: #### L 100.0100, L300.3900, L500.2500 #### [facility] [address] [place], [address] WBC (Bld) [#/Vol] 5.4 10*3/uL Normal 4.4-11.0 [facility] Comment on above: Performed By: #### L 100.0100, L300.3900, L500.2500 #### [facility] [address] [place], [address] Carbon dioxide, total [Moles /volume] in Central venous bloodOrdered By: Erasmo House on 08-24-2024 CO2 [Moles/Vol] 21.9 mmol/L 21.0-32.0 [facility] Chloride assayOrdered By: Edouard House on 08-24-2024 Chloride [Moles/Vol] 105 mmol/L 98-108 [facility] Eosinophil percentageOrdered By: Erasmo House on 08-24-2024 Eosinophils/100 WBC (Bld) 1.5 % 0-5 [facility] Erythrocyte distribution wid th ratioOrdered By: Erasmo House on 08-24-2024 Erythrocyte distribution width (RBC) [Ratio] 17.2 % High 11.6-14.6 [facility] Erythrocyte distribution wid th standard deviationOrdered By: Erasmo House on 08-24-2024 Erythrocyte distribution width (RBC) [Ratio] 61.1 fl High 35.1-43.9 [facility] Glomerular filtration rate ( GFR) estimation/1.73 sq m using serum, plasma, or whole bOrdered By: Erasmo House on 08-24-2024 GFR/1.73 sq M.predicted among non-blacks MDRD (S/P/Bld) [Vol rate/Area] 91 mL/min/{1.73_m2} >60 [facility] Comment on above: mL/min/1.73m2 CKD-EP I Creatinine Equation (2020) Hematocrit Auto (Bld) [Volum e fraction]Ordered By: Erasmo House on 08-24-2024 Hematocrit (Bld) [Volume fraction] 34.6 % Low 37-47 [facility] Hemoglobin measurementOrdere d By: Erasmo House on 08-24-2024 Hemoglobin (Bld) [Mass/Vol] 11.4 g/dL Low 12.0-15.0 [facility] Immature granulocytes/100 WB C Auto (Bld)Ordered By: Erasmo House on 08-24-2024 Immature granulocytes/100 WBC (Bld) 0.400 % 0.0-0.9 [facility] Comment on above: IG% - Immature Granu locytes (promyelocytes, myelocytes and metamyelocytes) > 1% indicates that a LEFT SHIFT is Present. MCV (mean corpuscular volume ) determinationOrdered By: Erasmo House on 08-24-2024 MCV (RBC) [Entitic vol] 96.6 fL 81-99 [facility] Mean corpuscular hemoglobin (MCH) determinationOrdered By: Erasmo House on 08-24-2024 MCH (RBC) [Entitic mass] 31.8 pg 27.0-32.0 [facility] Mean corpuscular hemoglobin concentration (MCHC) determinationOrdered By: Erasmo House on 08-24-2024 MCHC (RBC) [Mass/Vol] 32.9 g/dL 32-36 [facility] Mean platelet volume determi nationOrdered By: Erasmo House on 08-24-2024 Platelet mean volume (Bld) [Entitic vol] 11.0 fL 6.2-12.0 [facility] Monocyte percentageOrdered B y: Erasmo House on 08-24-2024 Monocytes/100 WBC (Bld) 12.6 % High 0-10 [facility] Neutrophil percentageOrdered By: Erasmo House on 08-24-2024 Neutrophils/100 WBC (Bld) 69.1 % 47-70 [facility] Nucleated red blood cell per centageOrdered By: Erasmo House on 08-24-2024 Nucleated RBC/100 WBC (Bld) [Ratio] 0 % 0-5 [facility] Platelet countOrdered By: Edouard House on 08-24-2024 Platelets (Bld) [#/Vol] 154 10*3/uL 150-450 [facility] Potassium measurement (mass/ volume)Ordered By: Erasmo House on 08-24-2024 Potassium (Unsp spec) [Mass/Vol] 3.9 mmol/L 3.3-5.1 [facility] Prothrombin Time w/INRon INR Coag (PPP) [Relative time] 1.3 {INR} Normal [facility] Comment on above: Performed By: #### L 100.0100, L300.3900, L500.2500 #### [facility] [address] [place], [address] PT Coag (PPP) [Time] 16.3 s High 11.7-14.9 [facility] Comment on above: Performed By: #### L 100.0100, L300.3900, L500.2500 #### [facility] [address] [place], [address] RBC Auto (Bld) [#/Vol]Ordere d By: Erasmo House on 08-24-2024 RBC (Bld) [#/Vol] 3.58 10*6/uL Low 4.2-5.4 [facility] Serum creatinine measurement (mass/volume)Ordered By: Erasmo House on 08-24-2024 Creatinine [Mass/Vol] 0.65 mg/dL Low 0.70-1.20 [facility] Serum glucose measurement (m ass/volume)Ordered By: Erasmo House on 08-24-2024 Glucose [Mass/Vol] 90 mg/dL 70-99 [facility] Serum or plasma calcium monica urement (mass/volume)Ordered By: Erasmo House on 08-24-2024 Calcium [Mass/Vol] 9.0 mg/dL 7.6-11.0 [facility] Serum or plasma urea nitroge n measurement (mass/volume)Ordered By: Erasmo House on 08-24-2024 Urea nitrogen [Mass/Vol] 15 mg/dL 4-19 [facility] Sodium levelOrdered By: Iwona House on 08-24-2024 Sodium [Moles/Vol] 140 mmol/L 133-145 [facility] White blood cell (WBC) count Ordered By: Erasmo House on 08-24-2024 WBC (Bld) [#/Vol] 5.4 10*3/uL 4.4-11.0 [facility] Absolute lymphocyte countOrd ered By: Ron Mariscal on 08-23-2024 Lymphocytes Auto (Unsp spec) [#/Vol] 0.64 10*3/uL Low 0.83-4.51 [facility] Absolute neutrophil countOrd ered By: Ron Mariscal on 08-23-2024 Neutrophils (Bld) [#/Vol] 6.5 10*3/uL 2.0-7.7 [facility] Anion gap in Serum or Plasma Ordered By: Ron Mariscal on 08-23-2024 Anion gap [Moles/Vol] 14 mmol/L 5-15 [facility] Automated lymphocyte count a s percentage of total leukocytesOrdered By: Ron Mariscal on 08-23-2024 Lymphocytes/100 WBC Auto (Unsp spec) 8.1 % Low 19-41 [facility] BUN/creatinine ratioOrdered By: Ron Mariscal on 08-23-2024 Urea nitrogen/Creatinine [Mass ratio] 34.8 mg/mg High 10-20 [facility] Basic Metabolic Profile (BMP )on 08-23-2024 BUN/CRE 34.8 RATIO High - [facility] Comment on above: Performed By: #### L 500.2500, L100.0100 #### [facility] [address] [place], [address] Calcium [Mass/Vol] 9.2 mg/dL Normal 7.6-11.0 [facility] Comment on above: Performed By: #### L 500.2500, L100.0100 #### [facility] [address] [place], [address] Chloride [Moles/Vol] 104 mmol/L Normal 98-108 [facility] Comment on above: Performed By: #### L 500.2500, L100.0100 #### [facility] [address] [place], [address] CO2 [Moles/Vol] 22.1 mmol/L Normal 21.0-32.0 [facility] Comment on above: Performed By: #### L 500.2500, L100.0100 #### [facility] [address] [place], [address] Creatinine [Mass/Vol] 0.63 mg/dL Low 0.70-1.20 [facility] Comment on above: Performed By: #### L 500.2500, L100.0100 #### [facility] [address] [place], [address] ECRCL 48.72 ml/min Low 50-250 [facility] Comment on above: Performed By: #### L 500.2500, L100.0100 #### [facility] [address] [place], [address] GAP 14 Normal 5-15 [facility] Comment on above: Performed By: #### L 500.2500, L100.0100 #### [facility] [address] [place], [address] GFR/1.73 sq M.predicted among non-blacks MDRD (S/P/Bld) [Vol rate/Area] 91 mL/min/{1.73_m2} Normal >60 [facility] Comment on above: Result Comment: mL/m in/1.73m2 CKD-EPI Creatinine Equation (2020) Performed By: #### L 500.2500, L100.0100 #### [facility] [address] [place], [address] Glucose [Mass/Vol] 116 mg/dL High 70-99 [facility] [facility] Comment on above: Performed By: #### L 500.2500, L100.0100 #### [facility] [address] [place], [address] Potassium [Moles/Vol] 3.9 mmol/L Normal 3.3-5.1 [facility] Comment on above: Performed By: #### L 500.2500, L100.0100 #### [facility] [address] [place], [address] Sodium [Moles/Vol] 140 mmol/L Normal 133-145 [facility] Comment on above: Performed By: #### L 500.2500, L100.0100 #### [facility] [address] [place], [address] Urea nitrogen [Mass/Vol] 22 mg/dL High 4-19 [facility] Comment on above: Performed By: #### L 500.2500, L100.0100 #### [facility] [address] [place], [address] Basophil percentageOrdered B y: Ron Mariscal on 08-23-2024 Basophils/100 WBC (Bld) 0.4 % 0-1 [facility] Brain/Head without Contrasto n 08-23-2024 Brain/Head without Contrast [facility] Imaging Services [address] [place] [address] Brain/Head without Contrast MR#: [id number] Acct: [id number] Name: HAYDEE BUSTAMANTE Rep #: [id number] : 1945 F 79 From: Jasmyn Herrera MD PCP: Dr. Claudine Durán MD Status: REG ER Study: Brain/Head without Contrast Date of Exam: 07/13 Exam# [id number] Ordering Dr: Ron Mariscal MD EXAM: CT [...] evaluation with MRI is recommended. Reading Location: [facility] CC: Dr. Ron Mariscal MD; Dr. Claudine Durán MD Life Science Teacher: Signed Normal [facility] CBC W/Diff, Automatedon 07-0 Absolute Lymph 0.64 X10 3/uL Low 0.83-4.51 [facility] Comment on above: Performed By: #### L 500.2500, L100.0100 #### [facility] [address] [place], [place], [id number] Absolute Neut 6.5 X10 3/uL Normal 2.0-7.7 [facility] Comment on above: Performed By: #### L 500.2500, L100.0100 #### [facility] [address] [place], [address] Basophils/100 WBC (Bld) 0.4 % Normal 0-1 [facility] Comment on above: Performed By: #### L 500.2500, L100.0100 #### [facility] [address] [place], [address] Eosinophils/100 WBC (Bld) 0.1 % Normal 0-5 [facility] Comment on above: Performed By: #### L 500.2500, L100.0100 #### [facility] [address] [place], [address] Erythrocyte distribution width (RBC) [Ratio] 17.0 % High 11.6-14.6 [facility] Comment on above: Performed By: #### L 500.2500, L100.0100 #### [facility] [address] [place], [address] Hematocrit (Bld) [Volume fraction] 33.9 % Low 37-47 [facility] Comment on above: Performed By: #### L 500.2500, L100.0100 #### [facility] [address] [place], [address] Hemoglobin (Bld) [Mass/Vol] 11.3 g/dL Low 12.0-15.0 [facility] Comment on above: Performed By: #### L 500.2500, L100.0100 #### [facility] [address] [place], [address] IG% 0.500 Normal 0.0-0.9 [facility] Comment on above: Result Comment: IG% - Immature Granulocytes (promyelocytes, myelocytes and metamyelocytes) > 1% indicates that a LEFT SHIFT is Present. Performed By: #### L 500.2500, L100.0100 #### [facility] [address] [place], [address] Lymphocytes/100 WBC (Bld) 8.1 % Low 19-41 [facility] Comment on above: Performed By: #### L 500.2500, L100.0100 #### [facility] [address] [place], [address] MCH (RBC) [Entitic mass] 32.1 pg High 27.0-32.0 [facility] Comment on above: Performed By: #### L 500.2500, L100.0100 #### [facility] [address] [place], [address] MCHC (RBC) [Mass/Vol] 33.3 g/dL Normal 32-36 [facility] Comment on above: Performed By: #### L 500.2500, L100.0100 #### [facility] [address] [place], [address] MCV (RBC) [Entitic vol] 96.3 fL Normal 81-99 [facility] Comment on above: Performed By: #### L 500.2500, L100.0100 #### [facility] [address] [place], [address] Monocytes/100 WBC (Bld) 8.6 % Normal 0-10 [facility] Comment on above: Performed By: #### L 500.2500, L100.0100 #### [facility] [address] [place], [address] Neutrophils/100 WBC (Bld) 82.3 % High 47-70 [facility] Comment on above: Performed By: #### L 500.2500, L100.0100 #### [facility] [address] [place], [address] Nucleated RBC (Bld) [#/Vol] 0 10*3/uL Normal 0-5 [facility] Comment on above: Performed By: #### L 500.2500, L100.0100 #### [facility] [address] [place], [address] Platelet mean volume (Bld) [Entitic vol] 10.9 fL Normal 6.2-12.0 [facility] Comment on above: Performed By: #### L 500.2500, L100.0100 #### [facility] [address] [place], [address] Platelets (Bld) [#/Vol] 182 10*3/uL Normal 150-450 [facility] Comment on above: Performed By: #### L 500.2500, L100.0100 #### [facility] [address] [place], [address] RBC (Bld) [#/Vol] 3.52 10*6/uL Low 4.2-5.4 [facility] Comment on above: Performed By: #### L 500.2500, L100.0100 #### [facility] [address] [place], [address] RDW SD 58.6 fl High 35.1-43.9 [facility] Comment on above: Performed By: #### L 500.2500, L100.0100 #### [facility] [address] [place], [address] WBC (Bld) [#/Vol] 7.9 10*3/uL Normal 4.4-11.0 [facility] Comment on above: Performed By: #### L 500.2500, L100.0100 #### [facility] [address] [place], [address] CPK Total, Creatine Kinaseon 08-23-2024 CPK TOTAL 128 U/L Normal 24-195 [facility] Comment on above: Performed By: #### L 500.2500, L100.0100 #### [facility] [address] [place], [address] Carbon dioxide, total [Moles /volume] in Central venous bloodOrdered By: Ron Mariscal on 08-23-2024 CO2 [Moles/Vol] 22.1 mmol/L 21.0-32.0 [facility] Chloride assayOrdered By: Kaitlynn Mariscal on 08-23-2024 Chloride [Moles/Vol] 104 mmol/L 98-108 [facility] Consultation - Orthopedicson 08-23-2024 Consultation - Orthopedics [facility] Medical Records Department [address] [place] [address] Consultation - Orthopedics 08/23/24 1354 MR#: [id number] Acct: [id number] Name: HAYDEE BUSTAMANTE Rep #: [id number] : 1945 79 From: Burak Amanda MD PCP: Dr. Claudine Durán MD Status:ADM ADAIR Location: [facility] AT225-5 HPI Consult Data Date of Consult: 08/23/24 [...] DAILY supplement 4 10/01/23 History tablet) vitamins A,C,G-qloj-okuaue 2,148 2 tab PO BID eye health [...] Rx (Voltaren Arthritis Pain) #100 grams omega 9-lbh-anu-fish oil 1,200 mg 1 cap PO DAILY [...] 06/20/24 10:10 (more content not included)... Normal [facility] Emergency Department Summary on 08-23-2024 Emergency Department Summary [facility] Medical Records Department [address] [place] [address] Emergency Department Summary 08/23/24 MR#: [id number] Acct: [id number] Name: HAYDEE BUSTAMANTE Rep #: [id number] : 1945 79 From: Ron Mariscal MD [...] at any point in time or syncope. Pzgbt-aawo-zeougqxe. Lives by herself. 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 She states this morning she laid [...] to if her wrist was not injured [facility] Medical History Hypertension GERD [...] DAILY supplement 4 10/01/23 History tablet) vitamins A,C,L-kdtw-xwwiqa 2,148 2 tab PO BID eye health [...] tabs Instructions: ON HOLD FOR COLONOSCOPY omega 2-rjg-wtg-fish oil 1,200 mg 1 cap PO DAILY [...] Severe Anaph (more content not included)... Normal [facility] Eosinophil percentageOrdered By: Ron Mariscal on 08-23-2024 Eosinophils/100 WBC (Bld) 0.1 % 0-5 [facility] Erythrocyte distribution wid th ratioOrdered By: Ron Mariscal on 08-23-2024 Erythrocyte distribution width (RBC) [Ratio] 17.0 % High 11.6-14.6 [facility] Erythrocyte distribution wid th standard deviationOrdered By: Ron Mariscal on 08-23-2024 Erythrocyte distribution width (RBC) [Ratio] 58.6 fl High 35.1-43.9 [facility] Glomerular filtration rate ( GFR) estimation/1.73 sq m using serum, plasma, or whole bOrdered By: Ron Loida on 08-23-2024 GFR/1.73 sq M.predicted among non-blacks MDRD (S/P/Bld) [Vol rate/Area] 91 mL/min/{1.73_m2} >60 [facility] Comment on above: mL/min/1.73m2 CKD-EP I Creatinine Equation (2020) H AND P Exam - Hospitaliston 08-23-2024 H&P Exam - Hospitalist [facility] Medical Records Department [address] [place] [address] H P Exam - Hospitalist 08/23/24 1023 MR#: [id number] Acct: [id number] Name: HAYDEE BUSTAMANTE Rep #: [id number] : 1945 79 From: Erasmo House MD PCP: Dr. Claudine Durán MD Status:ADM ADAIR Location: [place] [id number] [facility] - General General Date of Admission: [...] DAILY supplement 4 10/01/23 History tablet) vitamins A,C,U-xutb-amomkp 2,148 2 tab PO BID eye health [...] Rx (Voltaren Arthritis Pain) #100 grams omega 2-eiu-drk-fish oil 1,200 mg 1 cap PO DAILY [...] smoker alcoho (more content not included)... Normal [facility] Hematocrit Auto (Bld) [Volum e fraction]Ordered By: Ron Mariscal on 08-23-2024 Hematocrit (Bld) [Volume fraction] 33.9 % Low 37-47 [facility] Hemoglobin measurementOrdere d By: Ron Mariscal on 08-23-2024 Hemoglobin (Bld) [Mass/Vol] 11.3 g/dL Low 12.0-15.0 [facility] Immature granulocytes/100 WB C Auto (Bld)Ordered By: Ron Mariscal on 08-23-2024 Immature granulocytes/100 WBC (Bld) 0.500 % 0.0-0.9 [facility] Comment on above: IG% - Immature Granu locytes (promyelocytes, myelocytes and metamyelocytes) > 1% indicates that a LEFT SHIFT is Present. International normalized rat io (INR) calculationOrdered By: Ron Mariscal on 08-23-2024 INR Coag (Bld) [Relative time] 1.2 {INR} [facility] MCV (mean corpuscular volume ) determinationOrdered By: Ron Mariscal on 08-23-2024 MCV (RBC) [Entitic vol] 96.3 fL 81-99 [facility] Magnesiumon 08-23-2024 Magnesium [Mass/Vol] 2.1 mg/dL Normal 1.5-2.2 [facility] Comment on above: Performed By: #### L 500.2500, L100.0100 #### [facility] [address] [place] [address], [address] Magnesium measurement (mass/ volume)Ordered By: Erasmo House on 08-23-2024 Magnesium (Unsp spec) [Mass/Vol] 2.1 mg/dL 1.5-2.2 [facility] Mean corpuscular hemoglobin (MCH) determinationOrdered By: Ron Mariscal on 08-23-2024 MCH (RBC) [Entitic mass] 32.1 pg High 27.0-32.0 [facility] Mean corpuscular hemoglobin concentration (MCHC) determinationOrdered By: Ron Mariscal on 08-23-2024 MCHC (RBC) [Mass/Vol] 33.3 g/dL 32-36 [facility] Mean platelet volume determi nationOrdered By: Ron Mariscal on 08-23-2024 Platelet mean volume (Bld) [Entitic vol] 10.9 fL 6.2-12.0 [facility] Monocyte percentageOrdered B y: Ron Mariscal on 08-23-2024 Monocytes/100 WBC (Bld) 8.6 % 0-10 [facility] Neutrophil percentageOrdered By: Ron Mariscal on 08-23-2024 Neutrophils/100 WBC (Bld) 82.3 % High 47-70 [facility] Nucleated red blood cell per centageOrdered By: Ron Mariscal on 08-23-2024 Nucleated RBC/100 WBC (Bld) [Ratio] 0 % 0-5 [facility] Platelet countOrdered By: Kaitlynn Mariscal on 08-23-2024 Platelets (Bld) [#/Vol] 182 10*3/uL 150-450 [facility] Potassium measurement (mass/ volume)Ordered By: Ron Mariscal on 08-23-2024 Potassium (Unsp spec) [Mass/Vol] 3.9 mmol/L 3.3-5.1 [facility] Prothrombin Time w/INRon INR Coag (PPP) [Relative time] 1.2 {INR} Normal [facility] Comment on above: Performed By: #### L 500.2500, L100.0100 #### [facility] [address] [place], [address] PT Coag (PPP) [Time] 15.5 s High 11.7-14.9 [facility] Comment on above: Performed By: #### L 500.2500, L100.0100 #### [facility] [address] [place], [address] Prothrombin timeOrdered By: Ron Mariscal on 08-23-2024 PT Coag (PPP) [Time] 15.5 s High 11.7-14.9 [facility] RBC Auto (Bld) [#/Vol]Ordere d By: Ron Mariscal on 08-23-2024 RBC (Bld) [#/Vol] 3.52 10*6/uL Low 4.2-5.4 [facility] Serum creatinine measurement (mass/volume)Ordered By: Ron Mariscal on 08-23-2024 Creatinine [Mass/Vol] 0.63 mg/dL Low 0.70-1.20 [facility] Serum glucose measurement (m ass/volume)Ordered By: Ron Mariscal on 08-23-2024 Glucose [Mass/Vol] 116 mg/dL High 70-99 [facility] Serum or plasma calcium monica urement (mass/volume)Ordered By: Ron Mariscal on 08-23-2024 Calcium [Mass/Vol] 9.2 mg/dL 7.6-11.0 [facility] Serum or plasma creatine kin ase activityOrdered By: Ron Mariscal on 08-23-2024 CK [Catalytic activity/Vol] 128 U/L 24-195 [facility] Serum or plasma urea nitroge n measurement (mass/volume)Ordered By: Ron Mariscal on 08-23-2024 Urea nitrogen [Mass/Vol] 22 mg/dL High 4-19 [facility] Sodium levelOrdered By: Cordell Mariscal on 08-23-2024 Sodium [Moles/Vol] 140 mmol/L 133-145 [facility] White blood cell (WBC) count Ordered By: Ron Mariscal on 08-23-2024 WBC (Bld) [#/Vol] 7.9 10*3/uL 4.4-11.0 [facility] Wrist min 3 Viewson 08-24-19 25 Wrist min 3 Views [facility] Imaging Services [address] [place], [place] [address] Wrist min 3 Views MR#: [id number] Acct: [id number] Name: HAYDEE BUSTAMANTE Rep #: [id number] : 1945 F 79 From: Jasmyn Herrera MD PCP: Dr. Claudine Durán MD Status: REG ER Study: Wrist min 3 Views Date of Exam: 08/23/24 Exam# [id number] Ordering Dr: Ron Mariscal MD EXAM: XR [...] distal radius with intra-articular extension. Reading Location: [facility] CC: Dr. Ron Mariscal MD; Dr. Claudine Durán MD Life Science Teacher: Signed Normal [facility] No Panel InformationOrdered By: Santos Guillory on 08-21-2024 [facility] Cardiac Rehab [address] [place] [address] CR - Individual Treatment Plan MR#: [id number] Acct: [id number] Name: HAYDEE BUSTAMANTE Rep #:[id number] : 1945 79 From: Santos Rubalcava BS, [...] BMI: 23.3 Core - 30-Day Assessment Hypertension [place] [employer] Hypertension Guidelines Reassessment Notes & Comments:: Pt's BP's are within AHA normal limits on some days Core - Final Assessment Hypertension [place] [employer] Hypertension Guidelines Reassessment Notes & Comments:: Pt (more content not included)... [facility] No Panel InformationOrdered By: Santos Guillory on 07-24-2024 [facility] Cardiac Rehab [address] [place] [address] CR - Individual Treatment Plan MR#: [id number] Acct: [id number] Name: HAYDEE BUSTAMANTE Rep #:[id number] : 1945 79 From: Santos Rubalcava BS, RVT PCP: Dr. Claudine Durán MD DOS: 06/13 Exercise - Initial Assessment Physician Prescribed Exercise Modalities: Treadmill, SciFit Stepper and SciFit Pro-II Ergometer Nutrition - Initial Assessment Weight Mgt (Other Care) Height: 5 ft 3 in Weight:: 133 lb BMI: 23.6 Core - Initial Assessment Hypertension Resting Blood Pressure:: 132/70 [place] [employer] Hypertension Guidelines Psychosocial - Initial [...] modify LDL go (more content not included)... [facility] No Panel InformationOrdered By: Santos Guillory on 06-27-2024 [facility] Cardiac Rehab [address] [facility] [place] [address] CR - Individual Treatment Plan MR#: [id number] Acct: [id number] Name: HAYDEE BUSTAMANTE Rep #:[id number] : 1945 79 From: Santos Rubalcava BS, [...] Session 10,Verbalizes symptom (more content not included)... [facility] 12 Lead EKG performed by [facility] on 06-20-2024 12 Lead EKG performed by [facility] [address] [place] [address] 12 Lead EKG performed by [facility] 06/20/24 1547 MR#: [id number] Acct: [id number] Name: HAYDEE BUSTAMANTE Rep #: [id number] : 1945 79 From: Diaz Puckett MD Attending Dr: Dr. Diaz Puckett MD Status: DE P AMB Ordering Dr: Diaz Puckett MD Date: 06/20/24 Location: [facility] Sex: F C Admitted: BMS/12 Lead EKG performed by [facility] ECG Report Interpretation S inus Rhythm - occasional PAC # PACs = 1.-Combined atrial enlargement. Low voltage -possible pulmonary disease. ABNORMAL Electronically signed on 06/20/2024 at 12:[address] Diaz Puckett [employer] [place] [employer] Version 8610 06/20/24 1229 Date Diaz Puckett MD CC: Dr. Claudine Durán MD Date Dictated: 06/20/24 154 Date Transcribed: 06/20/241546 Life Science Teacher: Signed Normal [facility] Cardiology Visit Reporton Cardiology Visit Report [facility] [address] [place] [address] OFFICE VISIT Date of Service: 06/20/24 MR#: [id number] Acct: [id number] Name: HAYDEE BUSTAMANTE Rep #: [id number] : 1945 Provider: Dr. Diaz dickson MD Age/Sex: 79/F Location: [facility] Status: Signed HPI HPI History of Present Illness Details: Patient is a 79-year-old white female comes in today for new patient visit. Patient is routinely cared for in the [facility] system where she had her TAVR April 2024. Patient carries a history of critical aortic stenosis status post TAVR April 2024 at [facility] follow-up echo showed a peak gradient of [...] had been in outpatient rehab here at [facility] which she is tolerating without incident. The patient was not aware of her SBE prophylaxis needs given her bioprosthetic valve. She is allergic to penicillin but has not ever taken clindamycin to her knowledge. The patient is scheduled to follow-up with the [facility] in the next few weeks. She is wishing to transfer her care primarily to the [place] [facility] once she is released from the [facility] in their TAVR program. ECG in [...] Intake Visit Reasons: AORTICE VALVE STENOSIS (SWANSON) Stock Shipper Required: No Accompanied by: Self Is patient in pain?: No Allergies Penicillins Allergy (Severe, Verified 06/20/24 10:10) Anaphylaxis Medications ???Medication ???Instructions ???Recorded ???Confirmed ???Type multivitamin (Daily Multi-Vitamin 1 tab PO DAILY supplement 4 06/20/24 History tablet) vitamins A,C,Q-kgkd-moexxb 2,148 2 tab PO BID eye health [...] tabs Instructions: ON HOLD FOR COLONOSCOPY omega 6-njo-meg-fish oil 1,200 mg 1 cap PO DAILY [...] History Hypertension (more content not included)... Normal [facility] CR - History AND Physicalon 05-28-2024 CR - History & Physical [facility] Cardiac Rehab [address] [place] [address] CR - History Physical MR#: [id number] Acct: [id number] Name: HAYDEE BUSTAMANTE Rep #: [id number] : 1945 78 From: Santos Rubalcava BS, [...] tab PO DAILY supplement 4 tablet) vitamins A,C,T-rxvy-kkzptu 2,148 2 tab PO BID eye health [...] tabs Instructions: ON HOLD FOR COLONOSCOPY omega 0-lcv-zdg-fish oil 1,200 mg 1 cap PO DAILY [...] Do you have a Healthcare Power of [employer]?: Yes Living Will: Yes Advance Directives Information [...] 100/54 P (more content not included)... Normal [facility] Cardiac rehabilitation evalu ation reportOrdered By: Santos Guillory on 05-28-2024 Study report [facility] Cardiac Rehab [address] [place] [address] CR - History & Physical MR#: [id number] Acct: [id number] Name: HAYDEE BUSTAMANTE Rep #:[id number] : 1945 78 From: Santos Rubalcava BS, [...] PO DAILY suppl ement 03/19/23 tablet) vitamins A,C,S-kdrc-yhyxsf 2,148 2 tab PO BID eye heal [...] tabs Instructions: ON HOLD FOR COLONOSCOPY omega 9-dve-nrs-fish oil 1,200 mg 1 cap PO DAILY [...] Do you have a Healthcare Power of [employer]?: Yes Living Will: Yes Advance Directives Information [...] for Smoking and (more content not included)... [facility] No Panel InformationOrdered By: Santos Guillory on 05-28-2024 [facility] Cardiac Rehab [address] [place] [address] CR - Individual Treatment Plan MR#: [id number] Acct: [id number] Name: HAYDEE BUSTAMANTE Rep #:[id number] : 1945 78 From: Santos Rubalcava BS, [...] Referral to Physical Therapy: No Referral to [facility] Case Management: No Fall Risk Assessed:: Yes [...] SciFit Stepper, SciFit Pro-II Ergometerand SciFit Lateral Certified Neurodiagnostic Technologist Frequency: 3x/week for 12 weeks [36 sessions] [...] rehaband Other additional (more content not included)... [facility] XR Chest PA and Lateralon Radiology Study observation (narrative) [facility] IMPRESSION: See result. Life Science Teacher: KRYSTAL Transcribe Date/Time: Apr 30 2024 11:46A Dictated by : ABIGAIL ODOM MD This examination was interpreted and the report reviewed and electronically signed by: ABIGAIL ODOM MD on Apr 30 2024 11:47AM [facility] DIVISION OF RADIOLOGY * * *Final [...] soft tissues: Unremarkable. DIVISION OF RADIOLOGY Provider, [facility] Nina Napoles - 04/30/2024 * * *Final [...] soft tissues: Unremarkable. IMPRESSION IMPRESSION: See result. Life Science Teacher: KRYSTAL Transcribe Date/Time: Apr 30 2024 11:46A Dictated by : ABIGAIL ODOM MD This examination was interpreted and the report reviewed and electronically signed by: ABIGAIL ODOM MD on Apr 30 2024 11:47AM EST [facility] XR Chest PA and LateralOrder ed By: [facility] Provider on 04-30-2024 [facility] SPECT Heart for infarct W Tc -99m PYP IVOrdered By: [facility] Provider on 03-25-2024 Interpretation and review of laboratory results Abnormal [facility] Radiology Result ACTIONABLE Abnormal [facility] Comment on above: This report contains [...] contact your provider for the next steps. [facility] SPECT Heart for infarct W Tc -99m PYP Komal 03-25-2024 * * *Final Report* * * DATE OF EXAM: Mar 25 2024 12:13PM Deshawn 0847 - NM CARDIAC AMYLOID SPECT/CT / PROCEDURE REASON: Nonrheumatic aortic valve stenosis * * * * Physician Interpretation * * * * NM CTA Report: [facility] Date of service: 03/25/2024 11:41:51 AM CTAC [...] radiotracer. See administered radiotracer and dose below. [facility] Date of service: 03/25/2024 11:41:51 AM Ordering [...] * * * Final * * * Life Science Teacher: BELEN Transcribe Date/Time: Mar 25 2024 11:41A Dictated by : ROB MARCELO MD This examination was interpreted and the report reviewed and electronically signed by: ROB MARCELO MD on Mar 25 2024 12:19PM [facility] DIVISION OF RADIOLOGY Provider, [facility] - 03/25/2024 * * *Final Report* * * DATE OF EXAM: Mar 25 2024 12:13PM [facility] 0847 - ME CARDIAC AMYLOID SPECT/CT / PROCEDURE REASON: Nonrheumatic aortic valve stenosis * * * * Physician Interpretation * * * * ME CTA Report: [facility] Date of service: 03/25/2024 11:41:51 AM CTAC [...] See administered radiotracer and dose below. 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 Interpreting physician: [...] * * Final * * * RP Life Science Teacher: BELEN Transcribe Date/Time: Mar 25 2024 11:41A Dictated by : ROB AMRCELO MD This examination was interpreted and the report reviewed and electronically signed by: ROB MARCELO MD on Mar 25 2024 12:19PM EST [facility] Radiology Study observation (narrative) [facility] CREATININE, BLOOD (POC)on Creatinine [Mass/Vol] 0.60 mg/dL Abnormal 0.7 - 1.4 mg/dL [facility] eGFR (POCT) mL/min/1.7 3 m2 [facility] Interpretation and review of laboratory results Abnormal [facility] Location:Radiology [facility], [address] [place] [address], [address] [place] [address] POINT OF CARE [facility] CTA Abdominal vessels and Pe lvis [...] AORTIC DIMENSIONS: AORTIC ROOT: 3.5 cm measured kxhmj-qg-nrdey STJ: 2.5 cm mid ASCENDING THORACIC AORTA: [...] lumbar spine. Anterolisthesis of L4 over L5 Steel Plate Caulker (topogram) images: No additional findings. DIVISION [facility]IOLOGY [facility] * * *Final Report* * [...] AORTIC DIMENSIONS: AORTIC ROOT: 3.5 cm measured iedjh-ib-obztu STJ: 2.5 cm mid ASCENDING THORACIC AORTA: [...] lumbar spine. Anterolisthesis of L4 over L5 Steel Plate Caulker (topogram) images: (more content not included)... [facility] Radiology Study observation (narrative) [facility] Chest vessels W contrast [...] AORTIC DIMENSIONS: AORTIC ROOT: 3.5 cm measured cbide-mr-gnqod STJ: 2.5 cm mid ASCENDING THORACIC AORTA: [...] lumbar spine. Anterolisthesis of L4 over L5 Steel Plate Caulker (topogram) images: No additional findings. DIVISION OF RADIOLOGY Provider, [facility] - 03/21/2024 * * *Final Report* [...] AORTIC DIMENSIONS: AORTIC ROOT: 3.5 cm measured ccpnr-iv-myfzm STJ: 2.5 cm mid ASCENDING THORACIC AORTA: [...] lumbar spine. Anterolisthesis of L4 over L5 Steel Plate Caulker (topogram) im (more content not included)... [facility] Radiology Study observation (narrative) [facility] No Panel Informationon 03-21 IMPRESSION: Aortic Annulus and valve anatomy as described above Normal thoracic and abdomiinal aorta.Atherosclerotic changes as in the body of the report.Minimum luminal diameter throughout: 7 mm Life Science Teacher: PSCB Transcribe Date/Time: Mar 21 2024 11:22A Dictated by : CALIXTO BLACKWOOD MD This examination was interpreted and the report reviewed and electronically signed by: CALIXTO BLACKWOOD MD on Mar 21 2024 12:53PM [facility] DIVISION OF RADIOLOGY No Panel InformationOrdered By: Ccf Provider on 03-21-2024 [facility] XR Chest PA and Lateralon IMPRESSION: See result Life Science Teacher: KRYSTAL Transcribe Date/Time: Mar 21 2024 12:02P Dictated by : JACKELINE SCHULER MD This examination was interpreted and the report reviewed and electronically signed by: JACKELINE SCHULER MD on Mar 21 2024 12:04PM [facility] DIVISION OF RADIOLOGY * * *Final [...] Decreased bone density DIVISION OF RADIOLOGY Provider, [facility] - 03/21/2024 * * *Final Report* [...] Decreased bone density IMPRESSION IMPRESSION: See result Life Science Teacher: KRYSTAL Transcribe Date/Time: Mar 21 2024 12:02P Dictated by : JACKELINE SCHULER MD This examination was interpreted and the report reviewed and electronically signed by: JACKELINE SCHULER MD on Mar 21 2024 12:04PM EST [facility] Radiology Study observation (narrative) Christiane castañeda [facility] XR Chest PA and LateralOrder ed By: Ccf Provider on 03-21-2024 [facility] Davy 01-04-2024 CNPN Telephone (AKPRAD) ROBBYHAYDEE L ([id number]) 1945 F [facility] Date Time Provider Department 01/04/24 GENO [...] (FLONASE) 50 mcg/actuation nasal spray Use 1 [place] in each nostril once daily. - pantoprazole DR (PROTONIX) 40 mg tablet Take 1 tablet by mouth once daily. 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 Problem List As Of Date 12/20 (more content not included)... Normal [facility] HISTOPLASMA AG URINEOrdered By: Cabrera Duggan on 12-21-2023 H. capsulatum Ag (U) [Mass/Vol] ng/mL NINF - 0.2 ng/mL [facility] H. capsulatum Ag IA Ql (U) Negative Negative [facility] Comment on above: Histoplasma galactom adilene antigen, urine test is used as an aid in diagnosing histoplasmosis. A negative result cannot rule out infection. Low positive results may at times be due to cross-reactivity with Blastomyces, Talaromyces marneffei, Paracoccidioides, and some Wendy species. Clinical radiological, and epidemiological correlation is required. Interpretation and review of laboratory results Normal [facility] ITRACONAZOLE BLOODOrdered By : Elvira Cronin on 12-21-2023 Hydroxyitraconazole 1.1 ug/mL [facility] Comment on above: Ranges are based on [...] of Aspergillosis and Candidiasis and consultation from [facility]'s Department of Infectious Disease. Reference ranges and high/low indicator flags are provided as general guidelines only. The treating physician must determine appropriate target levels/dosing based on the specific clinical situation. This test was developed, and its performance characteristics determined by the [facility] Department of Pathology and Laboratory Medicine. It has not been cleared or approved by the FDA. The [facility] Department of Pathology and Laboratory Medicine is regulated under CLIA as qualified to perform high-complexity testing. This test is used for clinical purposes. It should not be regarded as investigational or for research. Itraconazole 0.8 ug/mL 0.6 - 2.9 ug/mL [facility] Hepatic function 2000 panelo n 12-20-2023 Albumin [Mass/Vol] 3.7 g/dL Low 3.9 - 4.9 g/dL [facility] ALP [Catalytic activity/Vol] 95 U/L 34 - 123 U/L [facility] ALT [Catalytic activity/Vol] 19 U/L 7 - 38 U/L [facility] AST [Catalytic activity/Vol] 20 U/L 13 - 35 U/L [facility] Bilirubin [Mass/Vol] 0.6 mg/dL 0.2 - 1 .3 mg/dL [facility] Bilirubin.conjugated [Mass/Vol] 0.2 mg/dL High NINF - 0.2 mg/dL [facility] Interpretation and review of laboratory results Abnormal [facility] Protein [Mass/Vol] 7.0 g/dL 6.3 - 8.0 g/dL [facility] CBC W Auto Differential pane l (Bld)on 10-11-2023 Basophils (Bld) [#/Vol] 0.05 10*3/uL [facility] Basophils/100 WBC (Bld) 0.5 % C [facility] Differential cell count method Nom (Bld) Auto [facility] Eosinophils (Bld) [#/Vol] 0.12 10*3/uL [facility] Eosinophils/100 WBC (Bld) 1.2 % [facility] Erythrocyte distribution width (RBC) [Ratio] 16.8 % High 11.5 - 15.0 % [facility] Hematocrit (Bld) [Volume fraction] 32.4 % Low 36.0 - 46.0 % [facility] Hemoglobin (Bld) [Mass/Vol] 10.1 g/dL Low 11.5 - 15.5 g/dL [facility] Immature granulocytes (Bld) [#/Vol] 0.05 10*3/uL [facility] Immature granulocytes/100 WBC (Bld) 0.5 % [facility] Interpretation and review of laboratory results Abnormal [facility] Lymphocytes (Bld) [#/Vol] 1.31 10*3/uL [facility] Lymphocytes/100 WBC (Bld) 13.3 % [facility] MCH (RBC) [Entitic mass] 26.9 pg 26.0 - 34.0 pg [facility] MCHC (RBC) [Mass/Vol] 31.2 g/dL 30.5 - 36.0 g/dL [facility] MCV (RBC) [Entitic vol] 86.4 fL 80.0 - 100.0 fL [facility] Monocytes (Bld) [#/Vol] 1.00 10*3/uL High [facility] Monocytes/100 WBC (Bld) 10.2 % C [facility] Neutrophils (Bld) [#/Vol] 7.32 10*3/uL [facility] Neutrophils/100 WBC (Bld) 74.3 % [facility] Nucleated RBC (Bld) [#/Vol] [facility] Nucleated RBC/100 WBC (Bld) [Ratio] 0.0 % /100 WBC [facility] Platelet mean volume (Bld) [Entitic vol] 11.6 fL 9.0 - 12.7 fL [facility] Platelets (Bld) [#/Vol] 349 10*3/uL [facility] RBC (Bld) [#/Vol] 3.75 10*6/uL Low 3.90 - 5.20 m/uL [facility] WBC (Bld) [#/Vol] 9.85 10*3/uL [facility] Comprehensive metabolic 2000 panelon 10-11-2023 Albumin [Mass/Vol] 3.9 g/dL 3.9 - 4.9 g/dL [facility] ALP [Catalytic activity/Vol] 111 U/L 34 - 123 U/L [facility] ALT [Catalytic activity/Vol] 22 U/L 7 - 38 U/L [facility] Anion gap [Moles/Vol] 11 mmol/L 8 - 15 mmol/L [facility] AST [Catalytic activity/Vol] 23 U/L 13 - 35 U/L [facility] Bilirubin [Mass/Vol] 0.3 mg/dL 0.2 - 1 .3 mg/dL [facility] Calcium [Mass/Vol] 9.4 mg/dL 8.5 - 10. 2 mg/dL [facility] Chloride [Moles/Vol] 99 mmol/L 98 - 10 7 mmol/L [facility] CO2 [Moles/Vol] 24 mmol/L 22 - 30 mmol/L [facility] Creatinine [Mass/Vol] 0.59 mg/dL 0.58 - 0.96 mg/dL [facility] GFR/1.73 sq M.predicted among non-blacks MDRD (S/P/Bld) [Vol rate/Area] 94 mL/min/{1.73_m2} - PINF [facility] Comment on above: Estimated Glomerular Filtration [...] [Mass/Vol] 76 mg/dL 74 - 99 mg/dL [facility] Comment on above: The [place] Diabete s Association (ADA) provides guidance for [...] Standards of Medical Care in Diabetes 2016, [place] Diabetes Association. Diabetes Care. 2016.39(Suppl 1). Interpretation and review of laboratory results Abnormal [facility] Potassium [Moles/Vol] 5.1 mmol/L 3.7 - 5.1 mmol/L [facility] Protein [Mass/Vol] 7.6 g/dL 6.3 - 8.0 g/dL [facility] Sodium [Moles/Vol] 134 mmol/L Low 136 - 144 mmol/L [facility] Urea nitrogen [Mass/Vol] 26 mg/dL High 7 - 21 mg/dL [facility] HISTOPLASMA AB CFon 09-02-19 24 H. capsulatum mycelial phase Ab CF (S) [Titer] <1:8 [facility] Comment on above: INTERPRETIVE INFORMA TION: Histoplasma Mycelia Antibodies by CF A titer of 1:8 or greater is generally considered presumptive evidence of histoplasmosis. A titer of 1:32 or greater or rising titers indicate strong presumptive evidence of histoplasmosis. Cross reactions, usually at lower titers, may occur with other fungal diseases. H. capsulatum yeast phase Ab CF (S) [Titer] <1:8 [facility] Comment on above: INTERPRETIVE INFORMA TION: Histoplasma Yeast Antibodies by CF A titer of 1:8 or greater is generally considered presumptive evidence of histoplasmosis. A titer of 1:32 or greater or rising titers indicate strong presumptive evidence of histoplasmosis. Cross reactions, usually at lower titers, may occur with other fungal diseases. Performed By: [facility] [address] [place] [id number] Nitrate Operator: Ernie Issa MD, PhD CLIA Number: [id number] [facility] HISTOPLASMA AG URINEOrdered By: Maricarmen Call on 08-31-2023 H. capsulatum Ag (U) [Mass/Vol] 0.4 ng/mL High NINF - 0.2 ng/mL [facility] H. capsulatum Ag IA Ql (U) Positive Abnormal Negative [facility] Comment on above: Histoplasma galactom adilene antigen, urine test is used as an aid in diagnosing histoplasmosis. A negative result cannot rule out infection. Low positive results may at times be due to cross-reactivity with Blastomyces, Talaromyces marneffei, Paracoccidioides, and some Wendy species. Clinical radiological, and epidemiological correlation is required. Interpretation and review of laboratory results Abnormal [facility] ITRACONAZOLE BLOODOrdered By : Elvira Cronin on 08-31-2023 Hydroxyitraconazole 2.4 ug/mL [facility] Comment on above: Ranges are based on [...] of Aspergillosis and Candidiasis and consultation from [facility]'s Department of Infectious Disease. Reference ranges and high/low indicator flags are provided as general guidelines only. The treating physician must determine appropriate target levels/dosing based on the specific clinical situation. This test was developed and its performance characteristics determined by [facility]'s [facility] Pathology and Laboratory Medicine [facility] It has not been cleared or approved by the FDA. [facility] is regulated under CLIA as qualified to perform high-complexity testing. This test is used for clinical purposes. It should not be regarded as investigational or for research. Itraconazole 1.3 ug/mL 0.6 - 2.9 ug/mL [facility] CNOVon 08-27-2023 CNOV Office Visit (CARMED ) HAYDEE BUSTAMANTE ([id number]) 1945 F T Date Time Provider Department 08/27/23 8:20 AM SIDDHARTH WILLIAMRADHIKA ADAMS During your visit today, we recorded the following information about you: Pulse Blood pressure Weight Height 81/minute 116/68 58.1 kg 1.6 m William Messina, 08/27/2023 2:47 PM Signed [facility] CARDIOLOGY [facility] OUTPATIENT VISIT DATE August 27, 2023 PRIMARY CARE PHYSICIAN: Claudine Durán [address] [place] [address] HISTORY OF PRESENT ILLNESS: Ms. Bustamante is [...] ([facility]) 03/07/2015 Dr. Hurley ([facility]) (more content not included)... [facility] 08-27-2023 [facility] Telephone (ANGIE) ROBBYHAYDEE Cabrera ([id number]) 1945 F T Date Time Provider Department [...] (FLONASE) 50 mcg/actuation nasal spray Use 1 [place] in each nostril once daily. - pantoprazole DR (PROTONIX) 40 mg tablet Take 1 tablet by mouth once daily. 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 Normal [facility] CBC W Auto Differential pane l (Bld)on 08-22-2023 Basophils (Bld) [#/Vol] 0.04 10*3/uL [facility] Basophils/100 WBC (Bld) 0.5 % C [facility] Differential cell count method Nom (Bld) Auto [facility] Eosinophils (Bld) [#/Vol] 0.08 10*3/uL [facility] Eosinophils/100 WBC (Bld) 1.0 % [facility] Erythrocyte distribution width (RBC) [Ratio] 17.4 % High 11.5 - 15.0 % [facility] Hematocrit (Bld) [Volume fraction] 28.5 % Low 36.0 - 46.0 % [facility] Hemoglobin (Bld) [Mass/Vol] 9.1 g/dL Low 11.5 - 15.5 g/dL [facility] Immature granulocytes (Bld) [#/Vol] 0.04 10*3/uL [facility] Immature granulocytes/100 WBC (Bld) 0.5 % [facility] Interpretation and review of laboratory results Abnormal [facility] Lymphocytes (Bld) [#/Vol] 0.93 10*3/uL Low [facility] Lymphocytes/100 WBC (Bld) 11.6 % [facility] MCH (RBC) [Entitic mass] 29.0 pg 26.0 - 34.0 pg [facility] MCHC (RBC) [Mass/Vol] 31.9 g/dL 30.5 - 36.0 g/dL [facility] MCV (RBC) [Entitic vol] 90.8 fL 80.0 - 100.0 fL [facility] Monocytes (Bld) [#/Vol] 0.72 10*3/uL [facility] Monocytes/100 WBC (Bld) 9.0 % C [facility] Neutrophils (Bld) [#/Vol] 6.19 10*3/uL [facility] Neutrophils/100 WBC (Bld) 77.4 % [facility] Nucleated RBC (Bld) [#/Vol] [facility] Nucleated RBC/100 WBC (Bld) [Ratio] 0.0 % /100 WBC [facility] Platelet mean volume (Bld) [Entitic vol] 10.8 fL 9.0 - 12.7 fL [facility] Platelets (Bld) [#/Vol] 293 10*3/uL [facility] RBC (Bld) [#/Vol] 3.14 10*6/uL Low 3.90 - 5.20 m/uL [facility] WBC (Bld) [#/Vol] 8.00 10*3/uL [facility] Comprehensive metabolic 2000 panelOrdered By: Adri Cabrera on 08-22-2023 Albumin [Mass/Vol] 3.2 g/dL Low 3.9 - 4.9 g/dL [facility] ALP [Catalytic activity/Vol] 97 U/L 34 - 123 U/L [facility] ALT [Catalytic activity/Vol] 20 U/L 7 - 38 U/L [facility] Anion gap [Moles/Vol] 10 mmol/L 8 - 15 mmol/L [facility] AST [Catalytic activity/Vol] 25 U/L 13 - 35 U/L [facility] Bilirubin [Mass/Vol] 0.4 mg/dL 0.2 - 1 .3 mg/dL [facility] Calcium [Mass/Vol] 8.5 mg/dL 8.5 - 10. 2 mg/dL [facility] Chloride [Moles/Vol] 103 mmol/L 98 - 10 7 mmol/L [facility] CO2 [Moles/Vol] 26 mmol/L 22 - 30 mmol/L [facility] Creatinine [Mass/Vol] 0.55 mg/dL Low 0.58 - 0.96 mg/dL [facility] GFR/1.73 sq M.predicted among non-blacks MDRD (S/P/Bld) [Vol rate/Area] 95 mL/min/{1.73_m2} - PINF [facility] Comment on above: Estimated Glomerular Filtration [...] [Mass/Vol] 82 mg/dL 74 - 99 mg/dL [facility] Comment on above: The [place] Diabete s Association (ADA) provides guidance for [...] Standards of Medical Care in Diabetes 2016, [place] Diabetes Association. Diabetes Care. 2016.39(Suppl 1). Interpretation and review of laboratory results Abnormal [facility] Potassium [Moles/Vol] 3.3 mmol/L Low 3.7 - 5.1 mmol/L [facility] Protein [Mass/Vol] 5.8 g/dL Low 6.3 - 8.0 g/dL [facility] Sodium [Moles/Vol] 139 mmol/L 136 - 144 mmol/L [facility] Urea nitrogen [Mass/Vol] 16 mg/dL 7 - 21 mg/dL [facility] INR (POC)on 08-22-2023 INR Coag (PPP) [Relative time] 1.1 {INR} 0.8 - 1.2 [facility] Internal Quality Check Acceptable [facility] Location:[facility], [address] [place] [address], [place], [place], [id number] [place] [address] POINT OF CARE [facility] No Panel InformationOrdered By: Zaynab Pina on 05-31-2023 29.8 SECONDS 11.7-14.9 [facility] 2.9 [facility] Absolute lymphocyte countOrd ered By: Zaynab Pina on 05-29-2023 Lymphocytes Auto (Unsp spec) [#/Vol] 1.06 10*3/uL 0.83-4.51 [facility] Automated lymphocyte count a s percentage of total leukocytesOrdered By: Zaynab Pina on 05-29-2023 Lymphocytes/100 WBC Auto (Unsp spec) 17.1 % 19-41 [facility] Basophil percentageOrdered B y: Zaynab Pina on 05-29-2023 Basophil percentage 9.8 g/dL 12.0-15.0 [facility] Basophil percentage 80 mg/dL 74-106 [facility] Basophil percentage 139 mmol/L 136-145 [facility] Basophil percentage 3.4 mmol/L 3.5-5.1 [facility] Basophil percentage 106 mmol/L 98-107 [facility] Basophils (Bld) [#/Vol] 6.2 10*3/uL 4.4-11.0 [facility] Basophils (Bld) [#/Vol] 4.1 10*3/uL 2.0-7.7 [facility] Basophils/100 WBC (Bld) 66.4 % 47-70 [facility] Basophils/100 WBC (Bld) 12.3 % 0-10 [facility] Basophils/100 WBC (Bld) 3.2 % 0-5 [facility] Basophils/100 WBC (Bld) 0.5 % 0-1 [facility] Determination of erythrocyte mean corpuscular volume (MCV)Ordered By: Zaynab Pina on 05-29-2023 MCV (RBC) [Entitic vol] 81.1 fL 81-99 [facility] Erythrocyte distribution wid th ratioOrdered By: Zaynab Pina on 05-29-2023 Erythrocyte distribution width (RBC) [Ratio] 17.6 % 11.6-14.6 [facility] Erythrocyte distribution wid th standard deviationOrdered By: Zaynab Pina on 05-29-2023 Erythrocyte distribution width (RBC) [Entitic vol] 52.1 fL 35.1-43.9 [facility] Hematocrit Auto (Bld) [Volum e fraction]Ordered By: Zaynab Pina on 05-29-2023 Hematocrit (Bld) [Volume fraction] 30.8 % 37-47 [facility] Immature granulocytes/100 WB C Auto (Bld)Ordered By: Zaynab Pina on 05-29-2023 Immature granulocytes/100 WBC (Bld) 0.500 % 0.0-0.9 [facility] No Panel InformationOrdered By: Zaynab Pina on 05-29-2023 25.8 pg 27.0-32.0 [facility] 31.8 g/dL 32-36 [facility] 194 K/mm3 150-450 [facility] 11.0 fl 6.2-12.0 [facility] 0 % 0-5 [facility] 116 mL/min >60 [facility] 141 mL/min >60 [facility] 29.6 RATIO 10-20 [facility] 28.0 mmol/L 21.0-32.0 [facility] RBC Auto (Bld) [#/Vol]Ordere d By: Zaynab Pina on 05-29-2023 RBC (Bld) [#/Vol] 3.80 10*6/uL 4.2-5.4 [facility] Serum or plasma calcium monica urement (mass/volume)Ordered By: Zaynab Pina on 05-29-2023 Calcium [Mass/Vol] 8.4 mg/dL 8.5-10.1 [facility] Serum or plasma creatinine m easurement (mass/volume)Ordered By: Zaynab Pina on 05-29-2023 Creatinine [Mass/Vol] 0.54 mg/dL 0.55-1.02 [facility] Serum or plasma urea nitroge n measurement (mass/volume)Ordered By: Zaynab Pina on 05-29-2023 Urea nitrogen [Mass/Vol] 16 mg/dL 7-18 [facility] Thin prep Papanicolaou smear with manual screeningOrdered By: Zaynab Pina on 05-29-2023 Thin prep Papanicolaou smear with manual screening 5 5-15 [facility] No Panel InformationOrdered By: Zaynab Pina on 05-28-2023 30.6 SECONDS 11.7-14.9 [facility] 3.0 [facility] Capillary blood internationa l normalized ratio (INR)Ordered By: Zaynab Pina on 05-24-2023 INR Coag (BldC) [Relative time] 1.9 [facility] Whole blood prothrombin time Ordered By: Zaynab Pina on 05-24-2023 PT Coag (Bld) [Time] 20.2 s 11.7-14.9 [facility] Capillary blood internationa l normalized ratio (INR)Ordered By: Zaynab Pina on 05-21-2023 INR Coag (BldC) [Relative time] 2.8 [facility] Whole blood prothrombin time Ordered By: Zaynab Pina on 05-21-2023 PT Coag (Bld) [Time] 28.8 s 11.7-14.9 [facility] Capillary blood internationa l normalized ratio (INR)Ordered By: Zaynab Pina on 05-17-2023 INR Coag (BldC) [Relative time] 3.0 [facility] Whole blood prothrombin time Ordered By: Zaynab Pina on 05-17-2023 PT Coag (Bld) [Time] 30.2 s 11.7-14.9 [facility] Absolute lymphocyte countOrd ered By: Zaynab Pina on 05-15-2023 Lymphocytes Auto (Unsp spec) [#/Vol] 1.62 10*3/uL 0.83-4.51 [facility] Automated lymphocyte count a s percentage of total leukocytesOrdered By: Zaynab Pina on 05-15-2023 Lymphocytes/100 WBC Auto (Unsp spec) 18.8 % 19-41 [facility] Basophil percentageOrdered B y: Claudiotanjoesph Pina on 05-15-2023 Basophil percentage 10.0 g/dL 12.0-15.0 [facility] Basophil percentage 71 mg/dL 74-106 [facility] Basophil percentage 137 mmol/L 136-145 [facility] Basophil percentage 4.1 mmol/L 3.5-5.1 [facility] Basophil percentage 103 mmol/L 98-107 [facility] Basophils (Bld) [#/Vol] 8.6 10*3/uL 4.4-11.0 [facility] Basophils (Bld) [#/Vol] 5.6 10*3/uL 2.0-7.7 [facility] Basophils/100 WBC (Bld) 64.8 % 47-70 [facility] Basophils/100 WBC (Bld) 11.8 % 0-10 [facility] Basophils/100 WBC (Bld) 3.3 % 0-5 [facility] Basophils/100 WBC (Bld) 0.7 % 0-1 [facility] Determination of erythrocyte mean corpuscular volume (MCV)Ordered By: Zaynab Pina on 05-15-2023 MCV (RBC) [Entitic vol] 82.7 fL [address] [facility] Erythrocyte distribution wid th ratioOrdered By: Zaynab Pina on 05-15-2023 Erythrocyte distribution width (RBC) [Ratio] 18.1 % 11.6-14.6 [facility] Erythrocyte distribution wid th standard deviationOrdered By: Zaynab Pina on 05-15-2023 Erythrocyte distribution width (RBC) [Entitic vol] 54.5 fL 35.1-43.9 [facility] Hematocrit Auto (Bld) [Volum e fraction]Ordered By: Zaynab Pina on 05-15-2023 Hematocrit (Bld) [Volume fraction] 32.0 % 37-47 [facility] Immature granulocytes/100 WB C Auto (Bld)Ordered By: Zaynab Pina on 05-15-2023 Immature granulocytes/100 WBC (Bld) 0.600 % 0.0-0.9 [facility] No Panel InformationOrdered By: Zaynab Pina on 05-15-2023 25.8 pg 27.0-32.0 [facility] 31.3 g/dL 32-36 [facility] 322 K/mm3 150-450 [facility] 10.2 fl 6.2-12.0 [facility] 0 % 0-5 [facility] 96 mL/min >60 [facility] 117 mL/min >60 [facility] 20.4 RATIO 10-20 [facility] 27.0 mmol/L 21.0-32.0 [facility] RBC Auto (Bld) [#/Vol]Ordere d By: Zaynab Pina on 05-15-2023 RBC (Bld) [#/Vol] 3.87 10*6/uL 4.2-5.4 [facility] Serum or plasma calcium monica urement (mass/volume)Ordered By: Zaynab Pina on 05-15-2023 Calcium [Mass/Vol] 9.0 mg/dL 8.5-10.1 [facility] Serum or plasma creatinine m easurement (mass/volume)Ordered By: Zaynab Pina on 05-15-2023 Creatinine [Mass/Vol] 0.64 mg/dL 0.55-1.02 [facility] Serum or plasma urea nitroge n measurement (mass/volume)Ordered By: Zaynab Pina on 05-15-2023 Urea nitrogen [Mass/Vol] 13 mg/dL 7-18 [facility] Thin prep Papanicolaou smear with manual screeningOrdered By: Zaynab Pina on 05-15-2023 Thin prep Papanicolaou smear with manual screening 7 5-15 [facility] Capillary blood internationa l normalized ratio (INR)Ordered By: Zaynab Pina on 05-14-2023 INR Coag (BldC) [Relative time] 3.0 [facility] Comment on above: Critical Value > 4.0 Whole blood prothrombin time Ordered By: Zaynab Pina on 05-14-2023 PT Coag (Bld) [Time] 30.4 s 11.7-14.9 [facility] Capillary blood internationa l normalized ratio (INR)Ordered By: Zaynab Pina on 05-10-2023 INR Coag (BldC) [Relative time] 2.8 [facility] Comment on above: Critical Value > 4.0 Whole blood prothrombin time Ordered By: Zaynab Pina on 05-10-2023 PT Coag (Bld) [Time] 28.1 s 11.7-14.9 [facility] Capillary blood internationa l normalized ratio (INR)Ordered By: Zaynab Pina on 05-07-2023 INR Coag (BldC) [Relative time] 2.2 [facility] Comment on above: Critical Value > 4.0 Whole blood prothrombin time Ordered By: Zaynab Pina on 05-07-2023 PT Coag (Bld) [Time] 24.4 s 11.7-14.9 [facility] Laboratory - CoagulationOrde red By: Zaynab Pina on 05-03-2023 INR Coag (Bld) [Relative time] 2.1 {INR} [facility] PT Coag (PPP) [Time] 23.2 s 11.7-14.9 [facility] No Panel InformationOrdered By: Zaynab Pina on 05-03-2023 23.2 SECONDS 11.7-14.9 [facility] 2.1 [facility] Absolute lymphocyte countOrd ered By: Zaynab Pina on 05-01-2023 Lymphocytes Auto (Unsp spec) [#/Vol] 1.74 10*3/uL 0.83-4.51 [facility] Automated lymphocyte count a s percentage of total leukocytesOrdered By: Zaynab Pina on 05-01-2023 Lymphocytes/100 WBC Auto (Unsp spec) 23.1 % 19-41 [facility] Basophil percentageOrdered B y: Zaynab Pina on 05-01-2023 Basophil percentage 10.7 g/dL 12.0-15.0 [facility] Basophil percentage 86 mg/dL 74-106 [facility] Basophil percentage 5.8 g/dL 6.4-8.2 [facility] Basophil percentage 0.60 mg/dL 0.20-1.00 [facility] Basophil percentage 137 mmol/L 136-145 [facility] Basophil percentage 3.7 mmol/L 3.5-5.1 [facility] Basophil percentage 105 mmol/L 98-107 [facility] Basophils (Bld) [#/Vol] 7.5 10*3/uL 4.4-11.0 [facility] Basophils (Bld) [#/Vol] 4.7 10*3/uL 2.0-7.7 [facility] Basophils/100 WBC (Bld) 0.7 % 0-1 [facility] Basophils/100 WBC (Bld) 62.4 % 47-70 [facility] Basophils/100 WBC (Bld) 12.0 % 0-10 [facility] Basophils/100 WBC (Bld) 1.3 % 0-5 [facility] Bilirubin [Mass/Vol] 0.60 mg/dL 0.20-1.00 [facility] Comment on above: For patients on eltr ombopag therapy, use of [employer] [place] TBIL is not recommended. Chloride [Moles/Vol] 105 mmol/L 98-107 [facility] Eosinophils/100 WBC (Bld) 1.3 % 0-5 [facility] Glucose [Mass/Vol] 86 mg/dL 74-106 [facility] Hemoglobin (Bld) [Mass/Vol] 10.7 g/dL 12.0-15.0 [facility] Monocytes/100 WBC (Bld) 12.0 % 0-10 [facility] Neutrophils (Bld) [#/Vol] 4.7 10*3/uL 2.0-7.7 [facility] Neutrophils/100 WBC (Bld) 62.4 % 47-70 [facility] Potassium [Moles/Vol] 3.7 mmol/L 3.5-5.1 [facility] Protein [Mass/Vol] 5.8 g/dL 6.4-8.2 [facility] Sodium [Moles/Vol] 137 mmol/L 136-145 [facility] WBC (Bld) [#/Vol] 7.5 10*3/uL 4.4-11.0 [facility] Determination of erythrocyte mean corpuscular volume (MCV)Ordered By: Zaynab Pina on 05-01-2023 MCV (RBC) [Entitic vol] 84.2 fL 81-99 [facility] Erythrocyte distribution wid th ratioOrdered By: [facility] Yovani on 05-01-2023 Erythrocyte distribution width (RBC) [Ratio] 19.4 % 11.6-14.6 [facility] Erythrocyte distribution wid th standard deviationOrdered By: [facility] on 05-01-2023 Erythrocyte distribution width (RBC) [Entitic vol] 60.2 fL 35.1-43.9 [facility] Hematocrit Auto (Bld) [Volum e fraction]Ordered By: Claudiotopekajoesph Pina on 05-01-2023 Hematocrit (Bld) [Volume fraction] 33.1 % 37-47 [facility] Immature granulocytes/100 WB C Auto (Bld)Ordered By: Claudiotopekajoesph Pina on 05-01-2023 Immature granulocytes/100 WBC (Bld) 0.500 % 0.0-0.9 [facility] Comment on above: IG% - Immature Granu locytes (promyelocytes, myelocytes and metamyelocytes) > 1% indicates that a LEFT SHIFT is Present. Laboratory - Chemistry and C hemistry - challengeOrdered By: Zaynab Pina on 05-01-2023 Albumin/Globulin [Mass ratio] 0.9 {ratio} 0.9-2.4 [facility] ALP [Catalytic activity/Vol] 93 U/L 45-117 [facility] ALT [Catalytic activity/Vol] 35 U/L 13-56 [facility] CO2 [Moles/Vol] 27.0 mmol/L 21.0-32.0 [facility] Globulin (S) [Mass/Vol] 3.1 g/dL 2.2-4.2 [facility] Urea nitrogen/Creatinine [Mass ratio] 56.7 mg/mg 10-20 [facility] Laboratory - Hematology and Cell countsOrdered By: Zaynab Pina on 05-01-2023 MCH (RBC) [Entitic mass] 27.2 pg 27.0-32.0 [facility] MCHC (RBC) [Mass/Vol] 32.3 g/dL 32-36 [facility] Nucleated RBC/100 WBC (Bld) [Ratio] 0 % 0-5 [facility] Platelet mean volume (Bld) [Entitic vol] 10.2 fL 6.2-12.0 [facility] Platelets (Bld) [#/Vol] 223 10*3/uL 150-450 [facility] No Panel InformationOrdered By: Zaynab Pina on 05-01-2023 Estimated GFR (MDRD) Amer 163 mL/min >60 [facility] Comment on above: GFR Calc Estimated GFR (MDRD) Non-Af Amer 135 mL/min >60 [facility] Comment on above: Non- GFR Calc Vitamin D 25-Hydroxy 42.6 ng/mL [facility] Comment on above: Vitamin D 25(OH) Sta tus Range Deficiency <20 ng/mL (50nmol/L) Insufficiency 20 - 30 ng/mL (50 - 75 nmol/L) Sufficiency 30 - 100 ng/mL (75 - 250 nmol/L) Toxicity >100 ng/mL (>250 nmol/L) 27.2 pg 27.0-32.0 [facility] 32.3 g/dL 32-36 [facility] 223 K/mm3 150-450 [facility] 10.2 fl 6.2-12.0 [facility] 0 % 0-5 [facility] 135 mL/min >60 [facility] 163 mL/min >60 [facility] 56.7 RATIO 10-20 [facility] 3.1 g/dL 2.2-4.2 [facility] 0.9 RATIO 0.9-2.4 [facility] 93 U/L 45-117 [facility] 35 U/L 13-56 [facility] 27.0 mmol/L 21.0-32.0 [facility] 42.6 ng/mL [facility] RBC Auto (Bld) [#/Vol]Ordere d By: Zaynab Pina on 05-01-2023 RBC (Bld) [#/Vol] 3.93 10*6/uL 4.2-5.4 [facility] Serum or plasma calcium monica urement (mass/volume)Ordered By: Zaynab Pina on 05-01-2023 Calcium [Mass/Vol] 8.6 mg/dL 8.5-10.1 [facility] Serum or plasma creatinine m easurement (mass/volume)Ordered By: Zaynab Pina on 05-01-2023 Creatinine [Mass/Vol] 0.48 mg/dL 0.55-1.02 [facility] Comment on above: The validity of the calculated GFR & GFRAA in patients over 70 years has not been determined. Clinical correlation is essential. Serum or plasma urea nitroge n measurement (mass/volume)Ordered By: Zaynab Pina on 05-01-2023 Urea nitrogen [Mass/Vol] 27 mg/dL 7-18 [facility] Thin prep Papanicolaou smear with manual screeningOrdered By: Zaynab Pina on 05-01-2023 Thin prep Papanicolaou smear with manual screening 2.7 g/dL 3.2-5.0 [facility] Thin prep Papanicolaou smear with manual screening 23 U/L 15-37 [facility] Thin prep Papanicolaou smear with manual screening 5 5-15 [facility] Laboratory - CoagulationOrde red By: Edinson Irvin on 04-30-2023 INR Coag (Bld) [Relative time] 2.2 {INR} [facility] PT Coag (PPP) [Time] 24.5 s 11.7-14.9 [facility] No Panel InformationOrdered By: Edinson Irvin on 04-30-2023 24.5 SECONDS 11.7-14.9 [facility] 2.2 [facility] Basophil percentageOrdered B y: Edinson Irvin on 04-27-2023 Basophil percentage 82 mg/dL 74-106 [facility] Basophil percentage 136 mmol/L 136-145 [facility] Basophil percentage 3.6 mmol/L 3.5-5.1 [facility] Basophil percentage 101 mmol/L 98-107 [facility] Chloride [Moles/Vol] 101 mmol/L 98-107 [facility] Glucose [Mass/Vol] 82 mg/dL 74-106 [facility] Potassium [Moles/Vol] 3.6 mmol/L 3.5-5.1 [facility] Sodium [Moles/Vol] 136 mmol/L 136-145 [facility] Laboratory - Chemistry and C hemistry - challengeOrdered By: Edinson Irvin on 04-27-2023 CO2 [Moles/Vol] 28.0 mmol/L 21.0-32.0 [facility] Urea nitrogen/Creatinine [Mass ratio] 54.9 mg/mg 10-20 [facility] No Panel InformationOrdered By: Edinson Irvin on 04-27-2023 Estimated Creatinine Clearance Calc 50.26 ml/min [facility] Estimated GFR (MDRD) Amer 151 mL/min >60 [facility] Comment on above: GFR Calc Estimated GFR (MDRD) Non-Af Amer 125 mL/min >60 [facility] Comment on above: Non- GFR Calc 125 mL/min >60 [facility] 151 mL/min >60 [facility] 50.26 ml/min [facility] 54.9 RATIO 10-20 [facility] 28.0 mmol/L 21.0-32.0 [facility] Serum or plasma calcium monica urement (mass/volume)Ordered By: Edinson Irvin on 04-27-2023 Calcium [Mass/Vol] 8.4 mg/dL 8.5-10.1 [facility] Serum or plasma creatinine m easurement (mass/volume)Ordered By: Edinson Irvin on 04-27-2023 Creatinine [Mass/Vol] 0.51 mg/dL 0.55-1.02 [facility] Comment on above: The validity of the calculated GFR & GFRAA in patients over 70 years has not been determined. Clinical correlation is essential. Serum or plasma urea nitroge n measurement (mass/volume)Ordered By: Edinson Irvin on 04-27-2023 Urea nitrogen [Mass/Vol] 28 mg/dL 7-18 [facility] Thin prep Papanicolaou smear with manual screeningOrdered By: Edinson Irvin on 04-27-2023 Thin prep Papanicolaou smear with manual screening 7 5-15 [facility] Laboratory - CoagulationOrde red By: Edinson Irvin on 04-16-2023 INR Coag (Bld) [Relative time] 1.2 {INR} [facility] PT Coag (PPP) [Time] 14.8 s 11.7-14.9 [facility] Basophil percentageOrdered B y: Edinson Irvin on 04-13-2023 Chloride [Moles/Vol] 104 mmol/L 98-107 [facility] Glucose [Mass/Vol] 89 mg/dL 74-106 [facility] Potassium [Moles/Vol] 3.5 mmol/L 3.5-5.1 [facility] Sodium [Moles/Vol] 136 mmol/L 136-145 [facility] Laboratory - Chemistry and C hemistry - challengeOrdered By: Edinson Irvin on 04-13-2023 CO2 [Moles/Vol] 28.0 mmol/L 21.0-32.0 [facility] Urea nitrogen/Creatinine [Mass ratio] 38.2 mg/mg 10- [facility] No Panel InformationOrdered By: Edinson Irvin on 04-13-2023 Estimated Creatinine Clearance Calc 50.26 ml/min [facility] Estimated GFR (MDRD) Amer 147 mL/min >60 [facility] Comment on above: GFR Calc Estimated GFR (MDRD) Non-Af Amer 121 mL/min >60 [facility] Comment on above: Non- GFR Calc Respiratory pathogens detect ion panel by molecular detection methodOrdered By: Edinson Irvin on 04-13-2023 Respiratory pathogens DNA and RNA panel GWEN+probe (Resp) [facility] Respiratory pathogens DNA and RNA panel GWEN+probe (Resp) [facility] Serum or plasma calcium monica urement (mass/volume)Ordered By: Edinson Irvin on 04-13-2023 Calcium [Mass/Vol] 7.8 mg/dL 8.5-10.1 [facility] Serum or plasma creatinine m easurement (mass/volume)Ordered By: Edinson Irvin on 04-13-2023 Creatinine [Mass/Vol] 0.52 mg/dL 0.55-1.02 [facility] Comment on above: The validity of the calculated GFR & GFRAA in patients over 70 years has not been determined. Clinical correlation is essential. Serum or plasma urea nitroge n measurement (mass/volume)Ordered By: Edinson Irvin on 04-13-2023 Urea nitrogen [Mass/Vol] 20 mg/dL 7-18 [facility] Thin prep Papanicolaou smear with manual screeningOrdered By: Edinson Irvin on 04-13-2023 Thin prep Papanicolaou smear with manual screening 4 5-15 [facility] Absolute lymphocyte countOrd ered By: Edinson Irvin on 04-12-2023 Lymphocytes Auto (Unsp spec) [#/Vol] 1.14 10*3/uL 0.83-4.51 [facility] Automated lymphocyte count a s percentage of total leukocytesOrdered By: Edinson Irvin on 04-12-2023 Lymphocytes/100 WBC Auto (Unsp spec) 27.6 % 19-41 [facility] Basophil percentageOrdered B y: Edinson Irvin on 04-12-2023 Basophil percentage 10.1 g/dL 12.0-15.0 [facility] Basophils (Bld) [#/Vol] 4.1 10*3/uL 4.4-11.0 [facility] Basophils (Bld) [#/Vol] 2.1 10*3/uL 2.0-7.7 [facility] Basophils/100 WBC (Bld) 1.2 % 0-1 [facility] Basophils/100 WBC (Bld) 50.6 % 47-70 [facility] Basophils/100 WBC (Bld) 11.4 % 0-10 [facility] Basophils/100 WBC (Bld) 8.7 % 0-5 [facility] Eosinophils/100 WBC (Bld) 8.7 % 0-5 [facility] Hemoglobin (Bld) [Mass/Vol] 10.1 g/dL 12.0-15.0 [facility] Monocytes/100 WBC (Bld) 11.4 % 0-10 [facility] Neutrophils (Bld) [#/Vol] 2.1 10*3/uL 2.0-7.7 [facility] Neutrophils/100 WBC (Bld) 50.6 % 47-70 [facility] WBC (Bld) [#/Vol] 4.1 10*3/uL 4.4-11.0 [facility] Determination of erythrocyte mean corpuscular volume (MCV)Ordered By: Edinosn Irvin on 04-12-2023 MCV (RBC) [Entitic vol] 86.8 fL 81-99 [facility] Erythrocyte distribution wid th ratioOrdered By: [facility] Erythrocyte distribution width (RBC) [Ratio] 22.8 % 11.6-14.6 [facility] Erythrocyte distribution wid th standard deviationOrdered By: [facility] 04-12-2023 Erythrocyte distribution width (RBC) [Entitic vol] 72.1 fL 35.1-43.9 [facility] Hematocrit Auto (Bld) [Volum e fraction]Ordered By: Edinson Albaro 04-12-2023 Hematocrit (Bld) [Volume fraction] 30.9 % 37-47 [facility] Immature granulocytes/100 WB C Auto (Bld)Ordered By: Edinson Irvin 04-12-2023 Immature granulocytes/100 WBC (Bld) 0.500 % 0.0-0.9 [facility] Comment on above: IG% - Immature Granu locytes (promyelocytes, myelocytes and metamyelocytes) > 1% indicates that a LEFT SHIFT is Present. Laboratory - Hematology and Cell countsOrdered By: Edinson Irvin 04-12-2023 MCH (RBC) [Entitic mass] 28.4 pg 27.0-32.0 [facility] MCHC (RBC) [Mass/Vol] 32.7 g/dL 32-36 [facility] Nucleated RBC/100 WBC (Bld) [Ratio] 0 % 0-5 [facility] Platelet mean volume (Bld) [Entitic vol] 9.8 fL 6.2-12.0 [facility] Platelets (Bld) [#/Vol] 119 10*3/uL 150-450 [facility] No Panel InformationOrdered By: Edinson Irvin on 04-12-2023 28.4 pg 27.0-32.0 [facility] 32.7 g/dL -36 [facility] 119 K/mm3 150-450 [facility] 9.8 fl 6.2-12.0 [facility] 0 % 0-5 [facility] RBC Auto (Bld) [#/Vol]Ordere d By: Edinson Irvin on 04-12-2023 RBC (Bld) [#/Vol] 3.56 10*6/uL 4.2-5.4 [facility] Blood manual differential co mment interpretation (narrative result)Ordered By: Edinson Irvin on 04-11-2023 Manual differential comment Donte (Bld) [Interp] SCANNED [facility] Blood platelet adequacy dete ction by light microscopyOrdered By: Edinson Irvin on 04-11-2023 Platelets LM Ql (Bld) MOD DEC ADEQ [facility] Laboratory - Hematology and Cell countsOrdered By: Edinson Irvin on 04-11-2023 Anisocytosis Ql (Bld) 1+ [facility] No Panel InformationOrdered By: Edinson Irvin on 04-11-2023 1+ [facility] Basophil percentageOrdered B y: Edinson Irvin on 04-06-2023 Basophil percentage 0 SEEN /hpf 0-5 [facility] Bilirubin Test strip Ql (U)O rdered By: Edinson Irvin on 04-06-2023 Bilirubin Ql (U) Negative Negative [facility] Culture, urineOrdered By: Gal Irvin on 04-06-2023 Bacteria identified Cx Nom (U) Culture exhibits no growth. [facility] Ketones Test strip Ql (U)Ord ered By: Edinson Irvin on 04-06-2023 Ketones Ql (U) Negative Negative [facility] Mucus LM Ql (Urine sed)Order ed By: Edinson Irvin on 04-06-2023 Mucus Ql (Urine sed) 0 SEEN /hpf [facility] Nitrite Test strip Ql (U)Ord ered By: Edinson Irvin on 04-06-2023 Nitrite Ql (U) Negative Negative [facility] No Panel InformationOrdered By: Edinson Irvin on 04-06-2023 Urine RBC 0 SEEN /hpf 0-5 [facility] 0 SEEN /hpf 0-5 [facility] Protein Test strip Ql (U)Ord ered By: Edinson Irvin on 04-06-2023 Protein Ql (U) 15 mg/dl Negative [facility] Review by pathologistOrdered By: Edinson Irvin on 04-06-2023 Pathologist review Donte (Unsp spec) [Interp] Reviewed [facility] Comment on above: Previous reported re sult: Dori urbano Edited by: CECY on 04/06/23:1217Normocytic anemia.MARKED Thrombocytopenia.Clinical correlation necessary.Landon Ontiveros M.D. 04/06/23 AMENDED REPORT 04/06/23 1217 PATH REV previously reported as: Dori urbano Squamous epithelial cells de tection in urine sediment by light microscopyOrdered By: Edinson Irvin on 04-06-2023 Epithelial cells.squamous LM Ql (Urine sed) 0-5 SEEN /hpf 5-10 [facility] Urine blood detectionOrdered By: Edinson Irvin on 04-06-2023 RBC Ql (U) 10 /ul Negative [facility] Urine clarityOrdered By: Edinson Irvin on 04-06-2023 Clarity (U) Clear Clear [facility] Urine color determinationOrd ered By: Edinson Irvin on 04-06-2023 Color (U) Yellow Yellow [facility] Urine glucose detectionOrder ed By: Edinson Irvin on 04-06-2023 Glucose Ql (U) Normal mg/dl Normal [facility] Urine leukocyte esterase det ection by dipstickOrdered By: Edinson Irvin on 04-06-2023 Leukocyte esterase Test strip Ql (U) Negative Negative [facility] Urine pHOrdered By: Edinson Irvin on 04-06-2023 pH (U) 6.0 [pH] 5.0 - 8.0 [facility] Urine sediment bacteria coun t by microscopy (number/high power field)Ordered By: Edinson Irvin on 04-06-2023 Bacteria LM.HPF (Urine sed) [#/Area] 0 /[HPF] None Seen [facility] Urine specific gravity measu rementOrdered By: Edinson Irvin on 04-06-2023 Specific gravity (U) [Rel density] 1.015 1.002-1.03 0 [facility] Urine urobilinogen measureme ntOrdered By: Edinson Irvin on 04-06-2023 Urobilinogen Ql (U) Normal mg/dl Normal [facility] Absolute lymphocyte countOrd ered By: Jasmyn Chan on 04-05-2023 Lymphocytes Auto (Unsp spec) [#/Vol] 0.61 10*3/uL 0.83-4.51 [facility] Automated lymphocyte count a s percentage of total leukocytesOrdered By: Jasmyn Chan on 04-05-2023 Lymphocytes/100 WBC Auto (Unsp spec) 10.5 % 19-41 [facility] Basophil percentageOrdered B y: Jasmyn Chan on 04-05-2023 Basophil percentage 9.6 g/dL 12.0-15.0 [facility] Basophils (Bld) [#/Vol] 5.8 10*3/uL 4.4-11.0 [facility] Basophils (Bld) [#/Vol] 4.4 10*3/uL 2.0-7.7 [facility] Basophils/100 WBC (Bld) 0.2 % 0-1 [facility] Basophils/100 WBC (Bld) 74.7 % 47-70 [facility] Basophils/100 WBC (Bld) 8.8 % 0-10 [facility] Basophils/100 WBC (Bld) 5.3 % 0-5 [facility] Eosinophils/100 WBC (Bld) 5.3 % 0-5 [facility] Hemoglobin (Bld) [Mass/Vol] 9.6 g/dL 12.0-15.0 [facility] Monocytes/100 WBC (Bld) 8.8 % 0-10 [facility] Neutrophils (Bld) [#/Vol] 4.4 10*3/uL 2.0-7.7 [facility] Neutrophils/100 WBC (Bld) 74.7 % 47-70 [facility] WBC (Bld) [#/Vol] 5.8 10*3/uL 4.4-11.0 [facility] Blood platelet adequacy dete ction by light microscopyOrdered By: Jasmyn Chan on 04-05-2023 Platelets LM Ql (Bld) MKD DEC ADEQ [facility] Determination of erythrocyte mean corpuscular volume (MCV)Ordered By: Jasmyn Chan on 04-05-2023 MCV (RBC) [Entitic vol] 85.0 fL 81-99 [facility] Erythrocyte distribution wid th ratioOrdered By: Jasmyn Chan on 04-05-2023 Erythrocyte distribution width (RBC) [Ratio] 22.8 % 11.6-14.6 [facility] Erythrocyte distribution wid th standard deviationOrdered By: Jasmyn Chan on 04-05-2023 Erythrocyte distribution width (RBC) [Entitic vol] 69.7 fL 35.1-43.9 [facility] Hematocrit Auto (Bld) [Volum e fraction]Ordered By: Jasmyn Chan on 04-05-2023 Hematocrit (Bld) [Volume fraction] 28.8 % 37-47 [facility] Immature granulocytes/100 WB C Auto (Bld)Ordered By: Jasmyn Chan on 04-05-2023 Immature granulocytes/100 WBC (Bld) 0.500 % 0.0-0.9 [facility] Comment on above: IG% - Immature Granu locytes (promyelocytes, myelocytes and metamyelocytes) > 1% indicates that a LEFT SHIFT is Present. Laboratory - Hematology and Cell countsOrdered By: Jasmyn Chan on 04-05-2023 Anisocytosis Ql (Bld) 2+ [facility] MCH (RBC) [Entitic mass] 28.3 pg 27.0-32.0 [facility] MCHC (RBC) [Mass/Vol] 33.3 g/dL 32-36 [facility] Nucleated RBC/100 WBC (Bld) [Ratio] 0 % 0-5 [facility] Platelet mean volume (Bld) [Entitic vol] 9.9 fL 6.2-12.0 [facility] Platelets (Bld) [#/Vol] 32 10*3/uL 150-450 [facility] No Panel InformationOrdered By: Jasmyn Chan on 04-05-2023 28.3 pg 27.0-32.0 [facility] 33.3 g/dL 32-36 [facility] 32 K/mm3 150-450 [facility] 9.9 fl 6.2-12.0 [facility] 0 % 0-5 [facility] 2+ [facility] RBC Auto (Bld) [#/Vol]Ordere d By: Jasmyn Chan on 04-05-2023 RBC (Bld) [#/Vol] 3.39 10*6/uL 4.2-5.4 [facility] Review by pathologistOrdered By: Jasmyn Chan on 04-05-2023 Pathologist review Donte (Unsp spec) [Interp] Reviewed [facility] Comment on above: Previous reported re sult: Dori urbano Edited by: [email or web address] on 04/05/23:1300Normocytic anemia.Marked Thrombocytopenia.Clinical correlation necessary.Landon Ontiveros M.D. 04/05/23 AMENDED REPORT 04/05/23 1300 PATH REV previously reported as: Dori urbano Blood manual differential co mment interpretation (narrative result)Ordered By: Jasmyn Chan on 04-04-2023 Manual differential comment Donte (Bld) [Interp] SCANNED [facility] Comment on above: LYMPHOPENIA NOTEDTHR OMBOCYTOPENIA NOTED Laboratory - CoagulationOrde red By: Laine Veras on 04-03-2023 INR Coag (Bld) [Relative time] 1.3 {INR} [facility] PT Coag (PPP) [Time] 16.2 s 11.7-14.9 [facility] No Panel InformationOrdered By: Laine Veras on 04-03-2023 16.2 SECONDS 11.7-14.9 [facility] 1.3 [facility] Basophil percentageOrdered B y: Alisa Mathew on 04-02-2023 Basophil percentage 86 mg/dL 74-106 [facility] Basophil percentage 4.9 g/dL 6.4-8.2 [facility] Basophil percentage 1.70 mg/dL 0.20-1.00 [facility] Basophil percentage 134 mmol/L 136-145 [facility] Basophil percentage 3.6 mmol/L 3.5-5.1 [facility] Basophil percentage 102 mmol/L 98-107 [facility] Bilirubin [Mass/Vol] 1.70 mg/dL 0.20-1.00 [facility] Comment on above: For patients on eltr ombopag therapy, use of Dimension [place] TBIL is not recommended. Chloride [Moles/Vol] 102 mmol/L 98-107 [facility] Glucose [Mass/Vol] 86 mg/dL 74-106 [facility] Potassium [Moles/Vol] 3.6 mmol/L 3.5-5.1 [facility] Protein [Mass/Vol] 4.9 g/dL 6.4-8.2 [facility] Sodium [Moles/Vol] 134 mmol/L 136-145 [facility] Laboratory - Chemistry and C hemistry - challengeOrdered By: Alisa Mathew on 04-02-2023 Albumin/Globulin [Mass ratio] 0.7 {ratio} 0.9-2.4 [facility] ALP [Catalytic activity/Vol] 84 U/L 45-117 [facility] ALT [Catalytic activity/Vol] 35 U/L 13-56 [facility] CO2 [Moles/Vol] 27.0 mmol/L 21.0-32.0 [facility] Globulin (S) [Mass/Vol] 2.9 g/dL 2.2-4.2 [facility] Urea nitrogen/Creatinine [Mass ratio] 25.1 mg/mg 10-20 [facility] No Panel InformationOrdered By: Alisa Mathew on 04-02-2023 Estimated Creatinine Clearance Calc 50.26 ml/min [facility] Estimated GFR (MDRD) Amer 149 mL/min >60 [facility] Comment on above: GFR Calc Estimated GFR (MDRD) Non-Af Amer 123 mL/min >60 [facility] Comment on above: Non- GFR Calc 123 mL/min >60 [facility] 149 mL/min >60 [facility] 50.26 ml/min [facility] 25.1 RATIO 10-20 [facility] 2.9 g/dL 2.2-4.2 [facility] 0.7 RATIO 0.9-2.4 [facility] 84 U/L 45-117 [facility] 35 U/L 13-56 [facility] 27.0 mmol/L 21.0-32.0 [facility] Serum or plasma calcium monica urement (mass/volume)Ordered By: Alisa Mathew on 04-02-2023 Calcium [Mass/Vol] 7.2 mg/dL 8.5-10.1 [facility] Serum or plasma creatinine m easurement (mass/volume)Ordered By: Alisa Mathew on 04-02-2023 Creatinine [Mass/Vol] 0.52 mg/dL 0.55-1.02 [facility] Comment on above: The validity of the calculated GFR & GFRAA in patients over 70 years has not been determined. Clinical correlation is essential. Serum or plasma urea nitroge n measurement (mass/volume)Ordered By: Alisa Mathew on 04-02-2023 Urea nitrogen [Mass/Vol] 13 mg/dL 7-18 [facility] Thin prep Papanicolaou smear with manual screeningOrdered By: Alisa Mathew on 04-02-2023 Thin prep Papanicolaou smear with manual screening 2.0 g/dL 3.2-5.0 [facility] Thin prep Papanicolaou smear with manual screening 20 U/L 15-37 [facility] Thin prep Papanicolaou smear with manual screening 5 5-15 [facility] Iron measurement (mass/mass) Ordered By: Alisa Mathew on 04-01-2023 Iron (Unsp spec) [Mass/Mass] 21 ug/dL 50-170 [facility] Laboratory - Chemistry and C hemistry - challengeOrdered By: Alisa Mathew on 04-01-2023 Ferritin [Mass/Vol] 268 ng/mL 8-252 [facility] Laboratory - Chemistry and C hemistry - challengeOrdered By: Laine Veras on 04-01-2023 Magnesium [Mass/Vol] 2.1 mg/dL 1.6-2.6 [facility] No Panel InformationOrdered By: Alisa Mathew on 04-01-2023 Total Iron Binding Capacity 243 ug/dL 250-450 [facility] 243 ug/dL 250-450 [facility] 268 ng/mL 8-252 [facility] No Panel InformationOrdered By: Laine Veras on 04-01-2023 2.1 mg/dL 1.6-2.6 [facility] Serum or plasma iron saturat ion measurement (mass fraction)Ordered By: Alisa Mathew on 04-01-2023 Iron saturation [Mass fraction] 8.6 % 15.0-55.0 [facility] Absolute lymphocyte countOrd ered By: Frederick Norah on 03-31-2023 Lymphocytes Auto (Unsp spec) [#/Vol] 0.59 10*3/uL 0.83-4.51 [facility] Automated lymphocyte count a s percentage of total leukocytesOrdered By: Frederick Almazan on 03-31-2023 Lymphocytes/100 WBC Auto (Unsp spec) 3.0 % 19-41 [facility] Basophil percentageOrdered B y: Frederick Almazan on 03-31-2023 Basophil percentage 1.4 mmol/L 0.4-2.0 [facility] Basophils/100 WBC (Bld) 0.1 % 0-1 [facility] Chloride [Moles/Vol] 99 mmol/L 98-107 [facility] Eosinophils/100 WBC (Bld) 0.1 % 0-5 [facility] Glucose [Mass/Vol] 108 mg/dL 74-106 [facility] Comment on above: Fasting Glucose resu lt from 100 to 125 mg/dL suggests IMPAIRED HOMEOSTASIS per A.D.A. criteria. Hemoglobin (Bld) [Mass/Vol] 8.3 g/dL 12.0-15.0 [facility] Lactate [Moles/Vol] 1.4 mmol/L 0.4-2.0 [facility] Monocytes/100 WBC (Bld) 5.0 % 0-10 [facility] Neutrophils (Bld) [#/Vol] 17.6 10*3/uL 2.0-7.7 [facility] Neutrophils/100 WBC (Bld) 90.8 % 47-70 [facility] Potassium [Moles/Vol] 3.2 mmol/L 3.5-5.1 [facility] Sodium [Moles/Vol] 134 mmol/L 136-145 [facility] WBC (Bld) [#/Vol] 19.4 10*3/uL 4.4-11.0 [facility] Blood manual differential co mment interpretation (narrative result)Ordered By: Frederick Almazan on 03-31-2023 Manual differential comment Donte (Bld) [Interp] SCANNED [facility] Blood platelet adequacy dete ction by light microscopyOrdered By: Frederick Almazan on 03-31-2023 Platelets LM Ql (Bld) MOD DEC ADEQ [facility] Determination of erythrocyte mean corpuscular volume (MCV)Ordered By: Frederick Almazan on 03-31-2023 MCV (RBC) [Entitic vol] 86.8 fL 81-99 [facility] Erythrocyte distribution wid th ratioOrdered By: Frederick Almazan on 03-31-2023 Erythrocyte distribution width (RBC) [Ratio] 24.1 % 11.6-14.6 [facility] Erythrocyte distribution wid th standard deviationOrdered By: Frederick Almazan on 03-31-2023 Erythrocyte distribution width (RBC) [Entitic vol] 75.1 fL 35.1-43.9 [facility] Erythrocyte sedimentation ra teOrdered By: Laine Veras on 03-31-2023 ESR (Bld) [Velocity] 7 mm/h 0-30 [facility] Hematocrit Auto (Bld) [Volum e fraction]Ordered By: Frederick Almazan on 03-31-2023 Hematocrit (Bld) [Volume fraction] 24.9 % 37-47 [facility] Immature granulocytes/100 WB C Auto (Bld)Ordered By: Frederick Almazan on 03-31-2023 Immature granulocytes/100 WBC (Bld) 1.000 % 0.0-0.9 [facility] Comment on above: IG% - Immature Granu locytes (promyelocytes, myelocytes and metamyelocytes) > 1% indicates that a LEFT SHIFT is Present. Laboratory - Chemistry and C hemistry - challengeOrdered By: Frederick Almazan on 03-31-2023 CK [Catalytic activity/Vol] 125 U/L 26-192 [facility] CO2 [Moles/Vol] 29.0 mmol/L 21.0-32.0 [facility] Natriuretic peptide B (Bld) [Mass/Vol] 97.8 pg/mL 0-100 [facility] Urea nitrogen/Creatinine [Mass ratio] 41.2 mg/mg 10-20 [facility] Laboratory - CoagulationOrde red By: Frederick Almazan on 03-31-2023 INR Coag (Bld) [Relative time] 1.3 {INR} [facility] PT Coag (PPP) [Time] 16.0 s 11.7-14.9 [facility] Laboratory - Hematology and Cell countsOrdered By: Frederick Almazan on 03-31-2023 Anisocytosis Ql (Bld) 2+ [facility] MCH (RBC) [Entitic mass] 28.9 pg 27.0-32.0 [facility] MCHC (RBC) [Mass/Vol] 33.3 g/dL 32-36 [facility] Nucleated RBC/100 WBC (Bld) [Ratio] 0 % 0-5 [facility] Platelet mean volume (Bld) [Entitic vol] 10.4 fL 6.2-12.0 [facility] Platelets (Bld) [#/Vol] 95 10*3/uL 150-450 [facility] Macrocytes detectionOrdered By: Frederick Almazan on 03-31-2023 Macrocytes Ql (Bld) 1+ [facility] No Panel InformationOrdered By: Laine Veras on 03-31-2023 C-Reactive Protein Extended Range 35.90 mg/L 0.0-3.0 [facility] Comment on above: C-Reactive Protein ( CRP) provides useful information for thediagnosis, therapy and monitoring of inflammatory processesand associated diseases. For the evaluation of Relative Riskfor Cardiovascular Disease, a High Sensitivity CRP (HSCRP)should be ordered. 35.90 mg/L 0.0-3.0 [facility] No Panel InformationOrdered By: Frederick Almazan on 03-31-2023 Estimated Creatinine Clearance Calc 50.26 ml/min [facility] Estimated GFR (MDRD) Amer 96 mL/min >60 [facility] Comment on above: GFR Calc Estimated GFR (MDRD) Non-Af Amer 80 mL/min >60 [facility] Comment on above: Non- GFR Calc 125 U/L 26-192 [facility] 97.8 pg/mL 0-100 [facility] RBC Auto (Bld) [#/Vol]Ordere d By: Frederick Almazan on 02-10-2024 RBC (Bld) [#/Vol] 2.87 10*6/uL 4.2-5.4 [facility] Serum or plasma calcium monica urement (mass/volume)Ordered By: Frederick Almazan on 03-31-2023 Calcium [Mass/Vol] 7.8 mg/dL 8.5-10.1 [facility] Serum or plasma creatinine m easurement (mass/volume)Ordered By: Frederick Almazan on 03-31-2023 Creatinine [Mass/Vol] 0.75 mg/dL 0.55-1.02 [facility] Comment on above: The validity of the calculated GFR & GFRAA in patients over 70 years has not been determined. Clinical correlation is essential. Serum or plasma urea nitroge n measurement (mass/volume)Ordered By: Frederick Almazan on 03-31-2023 Urea nitrogen [Mass/Vol] 31 mg/dL 7-18 [facility] Thin prep Papanicolaou smear with manual screeningOrdered By: Frederick Almazan on 03-31-2023 Thin prep Papanicolaou smear with manual screening 1+ [facility] Thin prep Papanicolaou smear with manual screening 6 5-15 [facility] Absolute lymphocyte countOrd ered By: Etienne Thacker on 03-28-2023 Lymphocytes Auto (Unsp spec) [#/Vol] 1.04 10*3/uL 0.83-4.51 [facility] Automated lymphocyte count a s percentage of total leukocytesOrdered By: Etienne Thacker on 03-28-2023 Lymphocytes/100 WBC Auto (Unsp spec) 7.4 % 19-41 [facility] Basophil percentageOrdered B y: Etienne Thacker on 03-28-2023 Basophil percentage 9.6 g/dL 12.0-15.0 [facility] Basophil percentage 113 mg/dL 74-106 [facility] Basophil percentage 131 mmol/L 136-145 [facility] Basophil percentage 4.0 mmol/L 3.5-5.1 [facility] Basophil percentage 98 mmol/L 98-107 [facility] Basophils (Bld) [#/Vol] 14.1 10*3/uL 4.4-11.0 [facility] Basophils (Bld) [#/Vol] 11.3 10*3/uL 2.0-7.7 [facility] Basophils/100 WBC (Bld) 0.2 % 0-1 [facility] Basophils/100 WBC (Bld) 80.2 % 47-70 [facility] Basophils/100 WBC (Bld) 9.8 % 0-10 [facility] Basophils/100 WBC (Bld) 0.0 % 0-5 [facility] Chloride [Moles/Vol] 98 mmol/L 98-107 [facility] Eosinophils/100 WBC (Bld) 0.0 % 0-5 [facility] Glucose [Mass/Vol] 113 mg/dL 74-106 [facility] Comment on above: Fasting Glucose resu lt from 100 to 125 mg/dL suggests IMPAIRED HOMEOSTASIS per A.D.A. criteria. Hemoglobin (Bld) [Mass/Vol] 9.6 g/dL 12.0-15.0 [facility] Monocytes/100 WBC (Bld) 9.8 % 0-10 [facility] Neutrophils (Bld) [#/Vol] 11.3 10*3/uL 2.0-7.7 [facility] Neutrophils/100 WBC (Bld) 80.2 % 47-70 [facility] Potassium [Moles/Vol] 4.0 mmol/L 3.5-5.1 [facility] Sodium [Moles/Vol] 131 mmol/L 136-145 [facility] WBC (Bld) [#/Vol] 14.1 10*3/uL 4.4-11.0 [facility] Blood manual differential co mment interpretation (narrative result)Ordered By: Etienne Thacker on 03-28-2023 Manual differential comment Donte (Bld) [Interp] See comment [facility] Comment on above: 1+ ANISOCYTOSIS Determination of erythrocyte mean corpuscular volume (MCV)Ordered By: Etienne Thacker on 03-28-2023 MCV (RBC) [Entitic vol] 83.2 fL 81-99 [facility] Erythrocyte distribution wid th ratioOrdered By: Etienne Thacker on 03-28-2023 Erythrocyte distribution width (RBC) [Ratio] 22.1 % 11.6-14.6 [facility] Erythrocyte distribution wid th standard deviationOrdered By: Etienne Thacker on 03-28-2023 Erythrocyte distribution width (RBC) [Entitic vol] 52.7 fL 35.1-43.9 [facility] Hematocrit Auto (Bld) [Volum e fraction]Ordered By: Etienne Thacker on 03-28-2023 Hematocrit (Bld) [Volume fraction] 28.8 % 37-47 [facility] Immature granulocytes/100 WB C Auto (Bld)Ordered By: Etienne Thacker on 03-28-2023 Immature granulocytes/100 WBC (Bld) 2.400 % 0.0-0.9 [facility] Comment on above: IG% - Immature Granu locytes (promyelocytes, myelocytes and metamyelocytes) > 1% indicates that a LEFT SHIFT is Present. Laboratory - Chemistry and C hemistry - challengeOrdered By: Etienne Thacker on 03-28-2023 CO2 [Moles/Vol] 25.0 mmol/L 21.0-32.0 [facility] Natriuretic peptide B (Bld) [Mass/Vol] 162.5 pg/mL 0-100 [facility] Urea nitrogen/Creatinine [Mass ratio] 35.6 mg/mg 10-20 [facility] Laboratory - CoagulationOrde red By: Etienne Thacker on 03-28-2023 INR Coag (Bld) [Relative time] 3.1 {INR} [facility] PT Coag (PPP) [Time] 32.4 s 11.7-14.9 [facility] Laboratory - Hematology and Cell countsOrdered By: Etienne Thacker on 03-28-2023 MCH (RBC) [Entitic mass] 27.7 pg 27.0-32.0 [facility] MCHC (RBC) [Mass/Vol] 33.3 g/dL 32-36 [facility] Nucleated RBC/100 WBC (Bld) [Ratio] 0.1 % 0-5 [facility] Platelet mean volume (Bld) [Entitic vol] 10.3 fL 6.2-12.0 [facility] Platelets (Bld) [#/Vol] 170 10*3/uL 150-450 [facility] No Panel InformationOrdered By: Etienne Thacker on 03-28-2023 Estimated Creatinine Clearance Calc 39.81 ml/min [facility] Estimated GFR (MDRD) Amer 69 mL/min >60 [facility] Comment on above: GFR Calc Estimated GFR (MDRD) Non-Af Amer 57 mL/min >60 [facility] Comment on above: Non- GFR Calc Troponin I High Sensitivity 17 pg/mL 3.0-54.0 [facility] Comment on above: Please Note: New [place]rie t Units and Gender Specific Reference Ranges. For more information see Policy Stat Procedure [place] High Sensitivity Troponin (TNIH) and attachments. 27.7 pg 27.0-32.0 [facility] 33.3 g/dL 32-36 [facility] 170 K/mm3 150-450 [facility] 10.3 fl 6.2-12.0 [facility] 0.1 % 0-5 [facility] 32.4 SECONDS 11.7-14.9 [facility] 3.1 [facility] 57 mL/min >60 [facility] 69 mL/min >60 [facility] 39.81 ml/min [facility] 35.6 RATIO 10-20 [facility] 17 pg/mL 3.0-54.0 [facility] 25.0 mmol/L 21.0-32.0 [facility] 162.5 pg/mL 0-100 [facility] RBC Auto (Bld) [#/Vol]Ordere d By: Etienne Thacker on 03-28-2023 RBC (Bld) [#/Vol] 3.46 10*6/uL 4.2-5.4 [facility] Serum or plasma calcium monica urement (mass/volume)Ordered By: Etienne Thacker on 03-28-2023 Calcium [Mass/Vol] 8.5 mg/dL 8.5-10.1 [facility] Serum or plasma creatinine m easurement (mass/volume)Ordered By: Etienne Thacker on 03-28-2023 Creatinine [Mass/Vol] 1.01 mg/dL 0.55-1.02 [facility] Comment on above: The validity of the calculated GFR & GFRAA in patients over 70 years has not been determined. Clinical correlation is essential. Serum or plasma urea nitroge n measurement (mass/volume)Ordered By: Etienne Thacker on 03-28-2023 Urea nitrogen [Mass/Vol] 36 mg/dL 7-18 [facility] Thin prep Papanicolaou smear with manual screeningOrdered By: Etienne Thacker on 03-28-2023 Thin prep Papanicolaou smear with manual screening 8 5-15 [facility] Absolute lymphocyte countOrd ered By: Laine Rito on 03-27-2023 Lymphocytes Auto (Unsp spec) [#/Vol] 1.08 10*3/uL 0.83-4.51 [facility] Automated lymphocyte count a s percentage of total leukocytesOrdered By: Laine Veras on 03-27-2023 Lymphocytes/100 WBC Auto (Unsp spec) 8.7 % 19-41 [facility] Basophil percentageOrdered B y: Laine Veras on 03-27-2023 Basophil percentage 7.9 g/dL 12.0-15.0 [facility] Basophil percentage 103 mg/dL 74-106 [facility] Basophil percentage 5.3 g/dL 6.4-8.2 [facility] Basophil percentage 1.70 mg/dL 0.20-1.00 [facility] Basophil percentage 132 mmol/L 136-145 [facility] Basophil percentage 4.1 mmol/L 3.5-5.1 [facility] Basophil percentage 101 mmol/L 98-107 [facility] Basophils (Bld) [#/Vol] 12.4 10*3/uL 4.4-11.0 [facility] Basophils (Bld) [#/Vol] 9.5 10*3/uL 2.0-7.7 [facility] Basophils/100 WBC (Bld) 0.2 % 0-1 [facility] Basophils/100 WBC (Bld) 76.4 % 47-70 [facility] Basophils/100 WBC (Bld) 10.7 % 0-10 [facility] Basophils/100 WBC (Bld) 0.0 % 0-5 [facility] Bilirubin [Mass/Vol] 1.70 mg/dL 0.20-1.00 [facility] Comment on above: For patients on eltr ombopag therapy, use of Dimension [place] TBIL is not recommended. Chloride [Moles/Vol] 101 mmol/L 98-107 [facility] Eosinophils/100 WBC (Bld) 0.0 % 0-5 [facility] Glucose [Mass/Vol] 103 mg/dL 74-106 [facility] Comment on above: Fasting Glucose resu lt from 100 to 125 mg/dL suggests IMPAIRED HOMEOSTASIS per A.D.A. criteria. Hemoglobin (Bld) [Mass/Vol] 7.9 g/dL 12.0-15.0 [facility] Monocytes/100 WBC (Bld) 10.7 % 0-10 [facility] Neutrophils (Bld) [#/Vol] 9.5 10*3/uL 2.0-7.7 [facility] Neutrophils/100 WBC (Bld) 76.4 % 47-70 [facility] Potassium [Moles/Vol] 4.1 mmol/L 3.5-5.1 [facility] Protein [Mass/Vol] 5.3 g/dL 6.4-8.2 [facility] Sodium [Moles/Vol] 132 mmol/L 136-145 [facility] WBC (Bld) [#/Vol] 12.4 10*3/uL 4.4-11.0 [facility] Blood manual differential co mment interpretation (narrative result)Ordered By: Laine Veras on 03-27-2023 Manual differential comment Donte (Bld) [Interp] SCANNED [facility] Determination of erythrocyte mean corpuscular volume (MCV)Ordered By: Laine Veras on 03-27-2023 MCV (RBC) [Entitic vol] 85.0 fL 81-99 [facility] Erythrocyte distribution wid th ratioOrdered By: Laine Veras on 03-27-2023 Erythrocyte distribution width (RBC) [Ratio] 20.5 % 11.6-14.6 [facility] Erythrocyte distribution wid th standard deviationOrdered By: Laine Veras on 03-27-2023 Erythrocyte distribution width (RBC) [Entitic vol] 51.5 fL 35.1-43.9 [facility] Hematocrit Auto (Bld) [Volum e fraction]Ordered By: Laine Veras on 03-27-2023 Hematocrit (Bld) [Volume fraction] 24.4 % 37-47 [facility] Immature granulocytes/100 WB C Auto (Bld)Ordered By: Laine Veras on 03-27-2023 Immature granulocytes/100 WBC (Bld) 4.000 % 0.0-0.9 [facility] Comment on above: IG% - Immature Granu locytes (promyelocytes, myelocytes and metamyelocytes) > 1% indicates that a LEFT SHIFT is Present. Laboratory - Chemistry and C hemistry - challengeOrdered By: Laine Veras on 03-27-2023 Albumin/Globulin [Mass ratio] 0.8 {ratio} 0.9-2.4 [facility] ALP [Catalytic activity/Vol] 170 U/L 45-117 [facility] ALT [Catalytic activity/Vol] 65 U/L 13-56 [facility] CO2 [Moles/Vol] 24.0 mmol/L 21.0-32.0 [facility] Globulin (S) [Mass/Vol] 3.0 g/dL 2.2-4.2 [facility] Magnesium [Mass/Vol] 2.6 mg/dL 1.6-2.6 [facility] Urea nitrogen/Creatinine [Mass ratio] 29.9 mg/mg 10-20 [facility] Laboratory - CoagulationOrde red By: Laine Veras on 03-27-2023 INR Coag (Bld) [Relative time] 3.9 {INR} [facility] PT Coag (PPP) [Time] 38.9 s 11.7-14.9 [facility] Laboratory - Hematology and Cell countsOrdered By: Laine Veras on 03-27-2023 Anisocytosis Ql (Bld) 2+ [facility] MCH (RBC) [Entitic mass] 27.5 pg 27.0-32.0 [facility] MCHC (RBC) [Mass/Vol] 32.4 g/dL 32-36 [facility] Nucleated RBC/100 WBC (Bld) [Ratio] 0.2 % 0-5 [facility] Platelet mean volume (Bld) [Entitic vol] 10.2 fL 6.2-12.0 [facility] Platelets (Bld) [#/Vol] 134 10*3/uL 150-450 [facility] No Panel InformationOrdered By: Laine Veras on 03-27-2023 Estimated Creatinine Clearance Calc 46.22 ml/min [facility] Estimated GFR (MDRD) Amer 82 mL/min >60 [facility] Comment on above: GFR Calc Estimated GFR (MDRD) Non-Af Amer 67 mL/min >60 [facility] Comment on above: Non- GFR Calc 27.5 pg 27.0-32.0 [facility] 32.4 g/dL 32-36 [facility] 134 K/mm3 150-450 [facility] 10.2 fl 6.2-12.0 [facility] 0.2 % 0-5 [facility] 2+ [facility] 38.9 SECONDS 11.7-14.9 [facility] 3.9 [facility] 67 mL/min >60 [facility] 82 mL/min >60 [facility] 46.22 ml/min [facility] 29.9 RATIO 10-20 [facility] 3.0 g/dL 2.2-4.2 [facility] 0.8 RATIO 0.9-2.4 [facility] 170 U/L 45-117 [facility] 65 U/L 13-56 [facility] 2.6 mg/dL 1.6-2.6 [facility] 24.0 mmol/L 21.0-32.0 [facility] RBC Auto (Bld) [#/Vol]Ordere d By: Laine Veras on 03-27-2023 RBC (Bld) [#/Vol] 2.87 10*6/uL 4.2-5.4 [facility] Serum or plasma calcium monica urement (mass/volume)Ordered By: Laine Veras on 03-27-2023 Calcium [Mass/Vol] 7.7 mg/dL 8.5-10.1 [facility] Serum or plasma creatinine m easurement (mass/volume)Ordered By: Laine Veras on 03-27-2023 Creatinine [Mass/Vol] 0.87 mg/dL 0.55-1.02 [facility] Comment on above: The validity of the calculated GFR & GFRAA in patients over 70 years has not been determined. Clinical correlation is essential. Serum or plasma thyroid stim ulating hormone (TSH) measurement (units/volume)Ordered By: Laine Veras on 03-27-2023 TSH Qn 0.76 uIU/mL 0.358-3.74 [facility] Serum or plasma urea nitroge n measurement (mass/volume)Ordered By: Laine Veras on 03-27-2023 Urea nitrogen [Mass/Vol] 26 mg/dL 7-18 [facility] Thin prep Papanicolaou smear with manual screeningOrdered By: Laine Veras on 03-27-2023 Thin prep Papanicolaou smear with manual screening 2.3 g/dL 3.2-5.0 [facility] Thin prep Papanicolaou smear with manual screening 27 U/L 15-37 [facility] Thin prep Papanicolaou smear with manual screening 7 5-15 [facility] Absolute lymphocyte countOrd ered By: Martín Cornejo on 03-26-2023 Lymphocytes Auto (Unsp spec) [#/Vol] 1.06 10*3/uL 0.83-4.51 [facility] Automated lymphocyte count a s percentage of total leukocytesOrdered By: Martín Cornejo on 03-26-2023 Lymphocytes/100 WBC Auto (Unsp spec) 6.3 % 19-41 [facility] Basophil percentageOrdered B y: Martín Cornejo on 03-26-2023 Basophil percentage 0 SEEN /hpf 0-5 [facility] Basophils/100 WBC (Bld) 0.1 % 0-1 [facility] Chloride [Moles/Vol] 101 mmol/L 98-107 [facility] Eosinophils/100 WBC (Bld) 0.0 % 0-5 [facility] Glucose [Mass/Vol] 111 mg/dL 74-106 [facility] Comment on above: Fasting Glucose resu lt from 100 to 125 mg/dL suggests IMPAIRED HOMEOSTASIS per A.D.A. criteria. Hemoglobin (Bld) [Mass/Vol] 8.9 g/dL 12.0-15.0 [facility] Monocytes/100 WBC (Bld) 9.6 % 0-10 [facility] Neutrophils (Bld) [#/Vol] 13.6 10*3/uL 2.0-7.7 [facility] Neutrophils/100 WBC (Bld) 80.3 % 47-70 [facility] Potassium [Moles/Vol] 3.6 mmol/L 3.5-5.1 [facility] Sodium [Moles/Vol] 135 mmol/L 136-145 [facility] WBC (Bld) [#/Vol] 16.9 10*3/uL 4.4-11.0 [facility] Bilirubin Test strip Ql (U)O rdered By: Martín Cornejo on 03-26-2023 Bilirubin Ql (U) Negative Negative [facility] Blood manual differential co mment interpretation (narrative result)Ordered By: Martín Cornejo on 03-26-2023 Manual differential comment Donte (Bld) [Interp] SCANNED [facility] Determination of erythrocyte mean corpuscular volume (MCV)Ordered By: Martín Cornejo on 03-26-2023 MCV (RBC) [Entitic vol] 81.5 fL 81-99 [facility] Erythrocyte distribution wid th ratioOrdered By: Martín Cornejo on 03-26-2023 Erythrocyte distribution width (RBC) [Ratio] 19.6 % 11.6-14.6 [facility] Erythrocyte distribution wid th standard deviationOrdered By: Martín Cornejo on 03-26-2023 Erythrocyte distribution width (RBC) [Entitic vol] 48.8 fL 35.1-43.9 [facility] Hematocrit Auto (Bld) [Volum e fraction]Ordered By: Martín Cornejo on 03-26-2023 Hematocrit (Bld) [Volume fraction] 26.8 % 37-47 [facility] Immature granulocytes/100 WB C Auto (Bld)Ordered By: Martín Cornejo on 03-26-2023 Immature granulocytes/100 WBC (Bld) 3.700 % 0.0-0.9 [facility] Comment on above: IG% - Immature Granu locytes (promyelocytes, myelocytes and metamyelocytes) > 1% indicates that a LEFT SHIFT is Present. International normalized rat io (INR) calculationOrdered By: Martín Cornejo on 03-26-2023 INR Coag (PPP) [Relative time] 3.2 {INR} [facility] Ketones Test strip Ql (U)Ord ered By: Martín Cornejo on 03-26-2023 Ketones Ql (U) Negative Negative [facility] - Chemistry and C hemistry - challengeOrdered By: Martín Cornejo on 03-26-2023 CO2 [Moles/Vol] 27.0 mmol/L 21.0-32.0 [facility] Natriuretic peptide B (Bld) [Mass/Vol] 322.3 pg/mL 0-100 [facility] Urea nitrogen/Creatinine [Mass ratio] 34.8 mg/mg 10-20 [facility] - CoagulationOrde red By: Martín Cornejo on 03-26-2023 PT Coag (PPP) [Time] 33.3 s 11.7-14.9 [facility] - Hematology and Cell countsOrdered By: Martín Cornejo on 03-26-2023 MCH (RBC) [Entitic mass] 27.1 pg 27.0-32.0 [facility] MCHC (RBC) [Mass/Vol] 33.2 g/dL 32-36 [facility] Nucleated RBC/100 WBC (Bld) [Ratio] 0.1 % 0-5 [facility] Platelets (Bld) [#/Vol] 169 10*3/uL 150-450 [facility] Mucus LM Ql (Urine sed)Order ed By: Martín Cornejo on 03-26-2023 Mucus Ql (Urine sed) 0 SEEN /hpf [facility] Nitrite Test strip Ql (U)Ord ered By: Martín Cornejo on 03-26-2023 Nitrite Ql (U) Negative Negative [facility] No Panel InformationOrdered By: Martín Cornejo on 03-26-2023 Urine RBC 0 SEEN /hpf 0-5 [facility] 0 SEEN /hpf 0-5 [facility] Estimated Creatinine Clearance Calc 49.15 ml/min [facility] Estimated GFR (MDRD) Amer 79 mL/min >60 [facility] Comment on above: GFR Calc Estimated GFR (MDRD) Non-Af Amer 66 mL/min >60 [facility] Comment on above: Non- GFR Calc Troponin I High Sensitivity 20 pg/mL 3.0-54.0 [facility] Comment on above: Please Note: New Aubrie t Units and Gender Specific Reference Ranges. For more information see Policy Stat Procedure [place] High Sensitivity Troponin (TNIH) and attachments. 20 pg/mL 3.0-54.0 [facility] 322.3 pg/mL 0-100 [facility] Platelet mean volume Nicholas-Ec ker (Bld) [Entitic vol]Ordered By: Martín Cornejo on 03-26-2023 Platelet mean volume (Bld) [Entitic vol] 9.9 fL 6.2-12.0 [facility] Protein Test strip Ql (U)Ord ered By: Martín Cornejo on 03-26-2023 Protein Ql (U) 30 mg/dl Negative [facility] RBC Auto (Bld) [#/Vol]Ordere d By: Martín Cornejo on 03-26-2023 RBC (Bld) [#/Vol] 3.29 10*6/uL 4.2-5.4 [facility] Review by pathologistOrdered By: Martín Cornejo on 03-26-2023 Pathologist review Donte (Unsp spec) [Interp] Dori urbano [facility] Pathologist review Donte (Unsp spec) [Interp] Reviewed [facility] Comment on above: Previous reported re sult: Dori sundeep Edited by: RGOVIKTOR on 03/27/23:1255Neutrophilic leukocytosis with left shift.Normocytic anemia.Clinical correlation necessary.Landon Ontiveros M.D. 03/27/23 AMENDED REPORT 03/27/23 1255 PATH REV previously reported as: Dori urbano Serum or plasma calcium monica urement (mass/volume)Ordered By: Martín Cornejo on 03-26-2023 Calcium [Mass/Vol] 8.1 mg/dL 8.5-10.1 [facility] Serum or plasma creatinine m easurement (mass/volume)Ordered By: Martín Cornejo on 03-26-2023 Creatinine [Mass/Vol] 0.89 mg/dL 0.55-1.02 [facility] Comment on above: The validity of the calculated GFR & GFRAA in patients over 70 years has not been determined. Clinical correlation is essential. Serum or plasma urea nitroge n measurement (mass/volume)Ordered By: Martín Cornejo on 03-26-2023 Urea nitrogen [Mass/Vol] 31 mg/dL 7-18 [facility] Squamous epithelial cells de tection in urine sediment by light microscopyOrdered By: Martín Cornejo on 03-26-2023 Epithelial cells.squamous LM Ql (Urine sed) 0 SEEN /hpf 5-10 [facility] Thin prep Papanicolaou smear with manual screeningOrdered By: Martín Cornejo on 03-26-2023 Thin prep Papanicolaou smear with manual screening 7 5-15 [facility] Urine blood detectionOrdered By: Martín Cronejo on 03-26-2023 RBC Ql (U) 10 /ul Negative [facility] Urine clarityOrdered By: Ryder Cornejo on 03-26-2023 Clarity (U) Clear Clear [facility] Urine color determinationOrd ered By: Martín Cornejo on 03-26-2023 Color (U) Yellow Yellow [facility] Urine glucose detectionOrder ed By: Martín Cornejo on 03-26-2023 Glucose Ql (U) Normal mg/dl Normal [facility] Urine leukocyte esterase det ection by dipstickOrdered By: Martín Cornejo on 03-26-2023 Leukocyte esterase Test strip Ql (U) Negative Negative [facility] Urine pHOrdered By: Martín rebolledo on 03-26-2023 pH (U) 6.5 [pH] 5.0 - 8.0 [facility] Urine sediment bacteria coun t by microscopy (number/high power field)Ordered By: Martín Cornejo on 03-26-2023 Bacteria LM.HPF (Urine sed) [#/Area] 0 /[HPF] None Seen [facility] Urine specific gravity measu rementOrdered By: Martín Cornejo on 03-26-2023 Specific gravity (U) [Rel density] 1.015 1.002-1.03 0 [facility] Urine urobilinogen measureme ntOrdered By: Martín Cornejo on 03-26-2023 Urobilinogen Ql (U) Normal mg/dl Normal [facility] Basic metabolic 2000 panelon 03-25-2023 Anion gap [Moles/Vol] 11 mmol/L Normal 9-18 [facility] Comment on above: Order Comment: Speci men Type: BLOOD SPECIMEN Ordering Facility: [facility] Address: [address] [place] [address] Performed By: #### 2 4321-2 #### [facility] CLIA [id number] 1 [place] [address] [place] Calcium [Mass/Vol] 8.6 mg/dL Normal 8.5-10.2 [facility] Comment on above: Order Comment: Speci men Type: BLOOD SPECIMEN Ordering Facility: [facility] Address: [address] [place] [address] Performed By: #### 2 4321-2 #### [facility] CLIA [id number] [address] Chloride [Moles/Vol] 96 mmol/L Low 97-105 [facility] Comment on above: Order Comment: Speci men Type: BLOOD SPECIMEN Ordering Facility: [facility] Address: [address] [place] [address] Performed By: #### 2 4321-2 #### [facility] CLIA [id number] [address] OF [facility] CO2 [Moles/Vol] 23 mmol/L Normal 22-30 [facility] Comment on above: Order Comment: Speci men Type: BLOOD SPECIMEN Ordering Facility: [facility] Address: [address] [place] [address] Performed By: #### 2 4321-2 #### [facility] CLIA [id number] [address] [place] [address] Creatinine [Mass/Vol] 0.84 mg/dL Normal 0.58-0.96 [facility] Comment on above: Order Comment: Speci men Type: BLOOD SPECIMEN Ordering Facility: [facility] Address: [address] [place] [address] Performed By: #### 2 4321-2 #### [facility] CLIA [id number] [address] [place] [address] Creatinine and Glomerular filtration rate.predicted panel (S/P/Bld) 73 mL/min/1.73m??? Normal >=60 [facility] Comment on above: Order Comment: Speci men Type: BLOOD SPECIMEN Ordering Facility: [facility] Address: [address] [place] [address] Result Comment: Meaghan mated Glomerular Filtration Rate [...] Performed By: #### 2 4321-2 #### [facility] CLIA [id number] [address] [place] [address] [place] Glucose [Mass/Vol] 134 mg/dL High 74-99 [facility] Comment on above: Order Comment: Renay adkins Type: BLOOD SPECIMEN Ordering Facility: [facility] Address: [address] [place] [address] Result Comment: The [place] Diabetes [employer] (ADA) provides guidance for cutoff [...] Standards of Medical Care in Diabetes 2016, [place] [employer]. Diabetes Care. 2016.39(Suppl 1). Performed By: #### 2 4321-2 #### [facility] CLIA [id number] [address] [place] [address] [place] Potassium [Moles/Vol] 3.9 mmol/L Normal 3.7-5.1 [facility] Comment on above: Order Comment: Renay adkins Type: BLOOD SPECIMEN Ordering Facility: [facility] Address: [address] [place] [address] Performed By: #### 2 4321-2 #### [facility] CLIA [id number] [address] [place] [address] [place] Sodium [Moles/Vol] 130 mmol/L Low 136-144 [facility] Comment on above: Order Comment: Renay adkins Type: BLOOD SPECIMEN Ordering Facility: [facility] Address: [address] [place] [address] Performed By: #### 2 4321-2 #### [facility] CLIA [id number] [address] [place] [address] [place] Urea nitrogen [Mass/Vol] 27 mg/dL High 7-21 [facility] Comment on above: Order Comment: Speci men Type: BLOOD SPECIMEN Ordering Facility: [facility] Address: [address] [place] [address] Performed By: #### 2 4321-2 #### [facility] CLIA [id number] [address] CBC panel Auto (Bld)on 03-25 Erythrocyte distribution width (RBC) [Ratio] 17.8 % High 11.5-15.0 [facility] Comment on above: Order Comment: Speci men Type: BLOOD SPECIMEN Ordering Facility: [facility] Address: [address] [place] [address] Performed By: #### 1 4196-0, 19051-9 #### [facility] CLIA [id number] [address] Hematocrit (Bld) [Volume fraction] 26.8 % Low 36.0-46.0 [facility] Comment on above: Order Comment: Speci men Type: BLOOD SPECIMEN Ordering Facility: [facility] Address: [address] [place] [address] Performed By: #### 1 4196-0, 16359-7 #### [employer] [facility] CLIA [id number] [address] Hemoglobin (Bld) [Mass/Vol] 8.9 g/dL Low 11.5-15.5 [facility] Comment on above: Order Comment: Speci men Type: BLOOD SPECIMEN Ordering Facility: [facility] Address: [address] [place] [address] Performed By: #### 1 4196-0, 07079-5 #### [facility] CLIA [id number] [address] MCH (RBC) [Entitic mass] 27.1 pg Normal 26.0-34.0 [facility] Comment on above: Order Comment: Speci men Type: BLOOD SPECIMEN Ordering Facility: [facility] Address: [address] [place] [address] Performed By: #### 1 4196-0, 36178-9 #### [facility] CLIA [id number] [address] [place] MCHC (RBC) [Mass/Vol] 33.2 g/dL Normal 30.5-36.0 [facility] Comment on above: Order Comment: Speci men Type: BLOOD SPECIMEN Ordering Facility: [facility] Address: [address] [place] [address] Performed By: #### 1 4196-0, 01273-7 #### [facility] CLIA [id number] [address] OF [facility] MCV (RBC) [Entitic vol] 81.5 fL Normal 80.0-100.[address] [facility] Comment on above: Order Comment: Speci men Type: BLOOD SPECIMEN Ordering Facility: [facility] Address: [address] [place] [address] Performed By: #### 1 4196-0, 23644-7 #### [facility] CLIA [id number] [address] [place] [address] [place] Nucleated RBC (Bld) [#/Vol] 0.04 10*3/uL High <0.01 [facility] Comment on above: Order Comment: Speci men Type: BLOOD SPECIMEN Ordering Facility: [facility] Address: [address] [place] [address] Performed By: #### 1 4196-0, 65752-9 #### [facility] CLIA [id number] [address] [place] [address] STATES OF [facility] Platelet mean volume (Bld) [Entitic vol] 10.0 fL Normal 9.0-12.7 [facility] Comment on above: Order Comment: Speci men Type: BLOOD SPECIMEN Ordering Facility: [facility] Address: [address] [place] [address] Performed By: #### 1 4196-0, 09794-9 #### [facility] CLIA [id number] [address] [place] Platelets (Bld) [#/Vol] 172 10*3/uL Normal 150-400 [facility] Comment on above: Order Comment: Speci men Type: BLOOD SPECIMEN Ordering Facility: [facility] Address: [address] [place], [place] [address] Performed By: #### 1 4196-0, 12647-2 #### [facility] CLIA [id number] [address] OF [facility] RBC (Bld) [#/Vol] 3.29 10*6/uL Low 3.90-5.20 [facility] Comment on above: Order Comment: Speci men Type: BLOOD SPECIMEN Ordering Facility: [facility] Address: [address] [place] [address] Performed By: #### 1 4196-0, 23513-9 #### [facility] CLIA [id number] [address] OF [facility] WBC (Bld) [#/Vol] 13.55 10*3/uL High 3.70-11.00 [facility] Comment on above: Order Comment: Speci men Type: BLOOD SPECIMEN Ordering Facility: [facility] Address: [address] [place] [address] Performed By: #### 1 4196-0, 76144-0 #### [facility] CLIA [id number] [address] OF [facility] CNDSon 03-25-2023 CNDS HNO ID: [id number] Author: SHARAN RIVAS MD Service: Hospital Medicine [...] was found to be COVID-19 positive in [place]. Imaging showed intraperitoneal air and pneumatosis intestinalis and patient was transferred to [facility]. Pulmonology was consulted and patient was [...] CONSULT PROGon 03-25-2023 CONSULT PROG HNO ID: [id number] Author: BRISSA LIMA RPh Service: Pharmacy Author [...] warfarin 5 mg once daily Managed at [place] [facility] 03/19: INR on arrival to [place] was 9. She was given Vitamin K [...] (SPORANOX) 200 mg ORAL BID phenol 1 [place] (CHLORASEPTIC) 1 [place] MUCOUS MEMBRANE (TOPICAL MOUTH AND THROAT) q [...] home med Signature: Brissa Lima RPh Pager/Extension: [phone] [facility] NURSING PROGon 03-25-2023 NURSING PROG HNO ID: [id number] Author: ARMEN FERNANDEZ, RN Service: Nursing Author [...] Renay adkins Type: BLOOD SPECIMEN Ordering Facility: [facility] Address: [address] [place] [address] Result Comment: Halle min K Antagonist (VKA) Therapeutic Range: INR 2 to 3 (Target INR of 2.5) Note: For patients treated with VKA drugs, such as warfarin, the [place] [employer] 2012 Guideline recommends [...] Chest 2012, 141:7S-47S Mitzi RA, et al. [facility] 2017, 70: 252-289 Performed By: #### 1 4196-0, 21835-6 #### [facility] CLIA [id number] 1 [place] [address] [place] PT Coag (PPP) [Time] 20.0 s High 9.7-13.0 [facility] Comment on above: Order Comment: Renay adkins Type: BLOOD SPECIMEN Ordering Facility: [facility] Address: [address] [place] [address] Performed By: #### 1 4196-0, 41892-5 #### [employer] [facility] CLIA [id number] [address] [place] [address] [place] Basic metabolic 2000 panelon 03-24-2023 Anion gap [Moles/Vol] 10 mmol/L Normal 9-18 [facility] Comment on above: Order Comment: Speci men Type: BLOOD SPECIMEN Ordering Facility: [facility] Address: [address] [place] [address] Performed By: #### 1 4196-0, 86340-4 #### [facility] CLIA [id number] [address] [place] [address] [place] Calcium [Mass/Vol] 8.8 mg/dL Normal 8.5-10.2 [facility] Comment on above: Order Comment: Speci men Type: BLOOD SPECIMEN Ordering Facility: [facility] Address: [address] [place] [address] Performed By: #### 1 4196-0, 15827-3 #### [facility] CLIA [id number] [address] [place] [address] [place] Chloride [Moles/Vol] 98 mmol/L Normal 97-105 [facility] Comment on above: Order Comment: Speci men Type: BLOOD SPECIMEN Ordering Facility: [facility] Address: [address] [place] [address] Performed By: #### 1 4196-0, 75812-2 #### [facility] CLIA [id number] [address] [place] [address] [place] CO2 [Moles/Vol] 24 mmol/L Normal 22-30 [facility] Comment on above: Order Comment: Speci men Type: BLOOD SPECIMEN Ordering Facility: [facility] Address: [address] [place] [address] Performed By: #### 1 4196-0, 27862-7 #### [facility] CLIA [id number] [address] [place] Creatinine [Mass/Vol] 0.89 mg/dL Normal 0.58-0.96 [facility] Comment on above: Order Comment: Speci men Type: BLOOD SPECIMEN Ordering Facility: [facility] Address: [address] [place] [address] Performed By: #### 1 4196-0, 12696-2 #### [facility] CLIA [id number] [address] [place] [address] [place] Creatinine and Glomerular filtration rate.predicted panel (S/P/Bld) 68 mL/min/1.73m??? Normal >=60 [facility] Comment on above: Order Comment: Renay adkins Type: BLOOD SPECIMEN Ordering Facility: [facility] Address: [address] [place] [address] Result Comment: Meaghan mated Glomerular Filtration Rate [...] actual GFR. Performed By: #### 1 4196-0, 15258-9 #### [facility] CLIA [id number] [address] [place] [address] [place] Glucose [Mass/Vol] 125 mg/dL High 74-99 [facility] Comment on above: Order Comment: Renay adkins Type: BLOOD SPECIMEN Ordering Facility: [facility] Address: [address] [place] [address] Result Comment: The [place] [employer] (ADA) provides guidance for cutoff [...] Standards of Medical Care in Diabetes 2016, [place] [employer]. Diabetes Care. 2016.39(Suppl 1). Performed By: #### 1 4196-0, 55027-9 #### [facility] CLIA [id number] [address] [place] Potassium [Moles/Vol] 4.1 mmol/L Normal 3.7-5.1 [facility] Comment on above: Order Comment: Speci men Type: BLOOD SPECIMEN Ordering Facility: [facility] Address: [address] [place] [address] Performed By: #### 1 4196-0, 57611-4 #### [facility] CLIA [id number] [address] [place] Sodium [Moles/Vol] 132 mmol/L Low 136-144 [facility] Comment on above: Order Comment: Speci men Type: BLOOD SPECIMEN Ordering Facility: [facility] Address: [address] [place] [address] Performed By: #### 1 4196-0, 38177-6 #### [facility] CLIA [id number] [address] STATES [facility] Urea nitrogen [Mass/Vol] 32 mg/dL High 7-21 [facility] Comment on above: Order Comment: Speci men Type: BLOOD SPECIMEN Ordering Facility: [facility] Address: [address] [place] [address] Performed By: #### 1 4196-0, 90330-6 #### [facility] CLIA [id number] [address] OF [facility] C diff Tox gens Stl Ql GWEN+p robeon 03-24-2023 C. difficile toxin genes GWEN+probe Ql (Stl) Negative Normal Negative for C. difficile toxin by PCR [facility] Comment on above: Order Comment: Speci men Type: STOOL SPECIMEN Ordering Facility: [facility] Address: [address] [place] [address] Performed By: #### 5 4067-4 #### [facility] CLIA [id number] [address] OF [facility] CBC panel Auto (Bld)on 03-24 Erythrocyte distribution width (RBC) [Ratio] 17.2 % High 11.5-15.0 [facility] Comment on above: Order Comment: Speci men Type: BLOOD SPECIMEN Ordering Facility: [facility] Address: [address] [place] [address] Performed By: #### 1 4196-0, 80490-9 #### [facility] CLIA [id number] [address] [place] Hematocrit (Bld) [Volume fraction] 26.5 % Low 36.0-46.0 [facility] Comment on above: Order Comment: Speci men Type: BLOOD SPECIMEN Ordering Facility: [facility] Address: [address] [place] [address] Performed By: #### 1 4196-0, 86813-0 #### [facility] CLIA [id number] [address] [place] Hemoglobin (Bld) [Mass/Vol] 9.1 g/dL Low 11.5-15.5 [facility] Comment on above: Order Comment: Speci men Type: BLOOD SPECIMEN Ordering Facility: [facility] Address: [address] [place] [address] Performed By: #### 1 4196-0, 60857-1 #### [facility] CLIA [id number] [address] [place] MCH (RBC) [Entitic mass] 27.4 pg Normal 26.0-34.0 [facility] Comment on above: Order Comment: Speci men Type: BLOOD SPECIMEN Ordering Facility: [facility] Address: [address] [place] [address] Performed By: #### 1 4196-0, 43333-5 #### [facility] CLIA [id number] [address] [place] MCHC (RBC) [Mass/Vol] 34.3 g/dL Normal 30.5-36.0 [facility] Comment on above: Order Comment: Speci men Type: BLOOD SPECIMEN Ordering Facility: [facility] Address: [address] [place] [address] Performed By: #### 1 4196-0, 41192-2 #### [facility] CLIA [id number] [address] MCV (RBC) [Entitic vol] 79.8 fL Low 80.0-100.[address] [facility] Comment on above: Order Comment: Speci men Type: BLOOD SPECIMEN Ordering Facility: [facility] Address: [address] [place] [address] Performed By: #### 1 4196-0, 94492-3 #### [facility] CLIA [id number] [address] Nucleated RBC (Bld) [#/Vol] 10*3/uL Normal <0.01 [facility] Comment on above: Order Comment: Speci men Type: BLOOD SPECIMEN Ordering Facility: [facility] Address: [address] [place] [address] Performed By: #### 1 4196-0, 48441-5 #### [facility] CLIA [id number] [address] [place] Platelet mean volume (Bld) [Entitic vol] 10.6 fL Normal 9.0-12.7 [facility] Comment on above: Order Comment: Speci men Type: BLOOD SPECIMEN Ordering Facility: [facility] Address: [address] [place] [address] Performed By: #### 1 4196-0, 52263-3 #### [facility] CLIA [id number] [address] OF [facility] Platelets (Bld) [#/Vol] 167 10*3/uL Normal 150-400 [facility] Comment on above: Order Comment: Speci men Type: BLOOD SPECIMEN Ordering Facility: [facility] Address: [address] [place] [address] Performed By: #### 1 4196-0, 60460-0 #### [facility] CLIA [id number] [address] [place] [address] [place] RBC (Bld) [#/Vol] 3.32 10*6/uL Low 3.90-5.20 [facility] Comment on above: Order Comment: Renay adkins Type: BLOOD SPECIMEN Ordering Facility: [facility] Address: [address] [place], [place] [address] Performed By: #### 1 4196-0, 56197-0 #### [facility] CLIA [id number] [address] OF [place] WBC (Bld) [#/Vol] 12.21 10*3/uL High 3.70-11.00 [facility] Comment on above: Order Comment: Renay adkins Type: BLOOD SPECIMEN Ordering Facility: [facility] Address: [address] [place] [address] Performed By: #### 1 4196-0, 70947-6 #### [facility] CLIA [id number] [address] CONSULT PROGon 03-24-2023 CONSULT PROG HNO ID: [id number] Author: BRISSA LIMA RPh Service: Pharmacy Author [...] warfarin 5 mg once daily Managed at [facility] 03/19: INR on arrival to [facility] was 9. She was given Vitamin K [...] (SPORANOX) 200 mg ORAL BID phenol 1 [place] (CHLORASEPTIC) 1 [place] MUCOUS MEMBRANE (TOPICAL MOUTH AND THROAT) q [...] education: No- home med Signature: Brissa Lima [facility] Pager/Extension: [phone] Normal [facility] PT panel Coag (PPP)on 2023 INR Coag (PPP) [Relative time] 2.0 {INR} High 0.9-1.3 [facility] Comment on above: Order Comment: Speci men Type: BLOOD SPECIMEN Ordering Facility: [facility] Address: [address] [place] [address] Result Comment: Halle min K Antagonist (VKA) Therapeutic Range: INR 2 to 3 (Target INR of 2.5) Note: For patients treated with VKA drugs, such as warfarin, the [place] [employer] 2012 Guideline recommends [...] Chest 2012, 141:7S-47S Mitzi RA, et al. [facility] 2017, 70: 252-289 Performed By: #### 1 4196-0, 09484-3 #### [facility] CLIA [id number] [address] [place] PT Coag (PPP) [Time] 19.7 s High 9.7-13.0 [facility] Comment on above: Order Comment: Renay adkins Type: BLOOD SPECIMEN Ordering Facility: [facility] Address: [address] [place] [address] Performed By: #### 1 4196-0, 48199-3 #### [facility] CLIA [id number] [address] [place] [address] STATES OF [facility] CBC W Ordered Manual Differe ntial panel (Bld)on 03-23-2023 ANISOCYTOSIS Present Normal [facility] Comment on above: Order Comment: Renya adkins Type: BLOOD SPECIMEN Ordering Facility: [facility] Address: [address] [place] [address] Performed By: #### 1 4196-0, 14369-2 #### [facility] CLIA [id number] [address] [place] [address] [place] Basophils (Bld) [#/Vol] 0.00 10*3/uL Normal <0.11 [facility] Comment on above: Order Comment: Renay adkins Type: BLOOD SPECIMEN Ordering Facility: [facility] Address: [address] [place] [address] Performed By: #### 1 4196-0, 33132-2 #### [facility] CLIA [id number] [address] Basophils/100 WBC (Bld) 0.0 % Normal A [facility] Comment on above: Order Comment: Speci men Type: BLOOD SPECIMEN Ordering Facility: [facility] Address: [address] [place] [address] Performed By: #### 1 4196-0, 01033-2 #### [facility] CLIA [id number] [address] OF [facility] Differential cell count method Nom (Bld) Manual Normal [facility] Comment on above: Order Comment: Speci men Type: BLOOD SPECIMEN Ordering Facility: [facility] Address: [address] [place] [address] Performed By: #### 1 4196-0, 49612-8 #### [facility] CLIA [id number] [address] [place] Eosinophils (Bld) [#/Vol] 0.00 10*3/uL Normal <0.46 [facility] Comment on above: Order Comment: Speci men Type: BLOOD SPECIMEN Ordering Facility: [facility] Address: [address] [place] [address] Performed By: #### 1 4196-0, 56325-5 #### [facility] CLIA [id number] [address] Eosinophils/100 WBC (Bld) 0.0 % Normal [facility] Comment on above: Order Comment: Speci men Type: BLOOD SPECIMEN Ordering Facility: [facility] Address: [address] [place] [address] Performed By: #### 1 4196-0, 89381-9 #### [facility] CLIA [id number] [address] [place] Erythrocyte distribution width (RBC) [Ratio] 16.6 % High 11.5-15.0 [facility] Comment on above: Order Comment: Speci men Type: BLOOD SPECIMEN Ordering Facility: [facility] Address: [address] [place] [address] Performed By: #### 1 4196-0, 97248-7 #### [facility] CLIA [id number] [address] [place] Hematocrit (Bld) [Volume fraction] 22.8 % Low 36.0-46.0 [facility] Comment on above: Order Comment: Speci men Type: BLOOD SPECIMEN Ordering Facility: [facility] Address: [address] [place] [address] Performed By: #### 1 4196-0, 52255-5 #### [facility] CLIA [id number] [address] [place] Hemoglobin (Bld) [Mass/Vol] 7.7 g/dL Low 11.5-15.5 [facility] Comment on above: Order Comment: Speci men Type: BLOOD SPECIMEN Ordering Facility: [facility] Address: [address] [place] [address] Performed By: #### 1 4196-0, 73803-9 #### [facility] CLIA [id number] [address] [place] [address] [place] Lymphocytes (Bld) [#/Vol] 0.88 10*3/uL Low 1.00-4.00 [facility] Comment on above: Order Comment: Speci men Type: BLOOD SPECIMEN Ordering Facility: [facility] Address: [address] [place] [address] Performed By: #### 1 4196-0, 60194-6 #### [facility] CLIA [id number] [address] [place] [address] [place] Lymphocytes/100 WBC (Bld) 7.0 % Normal [facility] Comment on above: Order Comment: Speci men Type: BLOOD SPECIMEN Ordering Facility: [facility] Address: [address] [place] [address] Performed By: #### 1 4196-0, 62160-0 #### [facility] CLIA [id number] [address] [place] MCH (RBC) [Entitic mass] 27.3 pg Normal 26.0-34.0 [facility] Comment on above: Order Comment: Speci men Type: BLOOD SPECIMEN Ordering Facility: [facility] Address: [address] [place] [address] Performed By: #### 1 4196-0, 28905-0 #### [facility] CLIA [id number] [address] MCHC (RBC) [Mass/Vol] 33.8 g/dL Normal 30.5-36.0 [facility] Comment on above: Order Comment: Speci men Type: BLOOD SPECIMEN Ordering Facility: [facility] Address: [address] [place] [address] Performed By: #### 1 4196-0, 46555-8 #### [facility] CLIA [id number] [address] [place] [address] MCV (RBC) [Entitic vol] 80.9 fL Normal 80.0-100.[address] [facility] Comment on above: Order Comment: Speci men Type: BLOOD SPECIMEN Ordering Facility: [facility] Address: [address] [place] [address] Performed By: #### 1 4196-0, 92744-9 #### [facility] CLIA [id number] [address] META% 2.0 % Normal [facility] Comment on above: Order Comment: Speci men Type: BLOOD SPECIMEN Ordering Facility: [facility] Address: [address] [place] [address] Performed By: #### 1 4196-0, 60878-3 #### [facility] CLIA [id number] [address] OF [place] Monocytes (Bld) [#/Vol] 1.00 10*3/uL High <0.87 [facility] Comment on above: Order Comment: Speci men Type: BLOOD SPECIMEN Ordering Facility: [facility] Address: [address] [place] [address] Performed By: #### 1 4196-0, 73930-1 #### [facility] CLIA [id number] [address] Monocytes/100 WBC (Bld) 8.0 % Normal A [facility] Comment on above: Order Comment: Speci men Type: BLOOD SPECIMEN Ordering Facility: [facility] Address: [address] [place] [address] Performed By: #### 1 4196-0, 76831-3 #### [facility] CLIA [id number] [address] [place] MYELO% 1.0 % Normal [facility] Comment on above: Order Comment: Speci men Type: BLOOD SPECIMEN Ordering Facility: [facility] Address: [address] [place] [address] Performed By: #### 1 4196-0, 93362-0 #### [facility] CLIA [id number] [address] Neutrophils (Bld) [#/Vol] 10.25 10*3/uL High 1.45-7.50 [facility] Comment on above: Order Comment: Speci men Type: BLOOD SPECIMEN Ordering Facility: [facility] Address: [address] [place] [address] Performed By: #### 1 4196-0, 74323-9 #### [facility] CLIA [id number] [address] Neutrophils/100 WBC (Bld) 82.0 % Normal [facility] Comment on above: Order Comment: Speci men Type: BLOOD SPECIMEN Ordering Facility: [facility] Address: [address] [place] [address] Performed By: #### 1 4196-0, 13481-0 #### [facility] CLIA [id number] [address] [place] Nucleated RBC (Bld) [#/Vol] 10*3/uL Normal <0.01 [facility] Comment on above: Order Comment: Speci men Type: BLOOD SPECIMEN Ordering Facility: [facility] Address: [address] [place] [id number] Performed By: #### 1 4196-0, 97283-1 #### [facility] CLIA [id number] [address] Nucleated RBC/100 WBC (Bld) [Ratio] 0.0 /100 WBC Normal [facility] Comment on above: Order Comment: Speci men Type: BLOOD SPECIMEN Ordering Facility: [facility] Address: [facility] [place] [address] Performed By: #### 1 4196-0, 61950-8 #### [facility] CLIA [id number] [address] Ovalocytes LM Ql (Bld) Few Normal [facility] Comment on above: Order Comment: Speci men Type: BLOOD SPECIMEN Ordering Facility: [facility] Address: [address] [place] [address] Performed By: #### 1 4196-0, 89276-7 #### [facility] CLIA [id number] [address] Platelet mean volume (Bld) [Entitic vol] 10.5 fL Normal 9.0-12.7 [facility] Comment on above: Order Comment: Speci men Type: BLOOD SPECIMEN Ordering Facility: [facility] Address: [address] [place] [address] Performed By: #### 1 4196-0, 50043-0 #### [facility] CLIA [id number] [address] OF [place] Platelets (Bld) [#/Vol] 157 10*3/uL Normal 150-400 [facility] Comment on above: Order Comment: Speci men Type: BLOOD SPECIMEN Ordering Facility: [facility] Address: [address] [place] [address] Performed By: #### 1 4196-0, 14874-5 #### [facility] CLIA [id number] [address] OF [place] Platelets Estimate (Bld) [#/Vol] Adequate Normal [facility] Comment on above: Order Comment: Speci men Type: BLOOD SPECIMEN Ordering Facility: [facility] Address: [address] [place] [address] Performed By: #### 1 4196-0, 13195-7 #### [facility] CLIA [id number] [address] Polychromasia LM Ql (Bld) Slight Normal [facility] Comment on above: Order Comment: Speci men Type: BLOOD SPECIMEN Ordering Facility: [facility] Address: [address] [place] [address] Performed By: #### 1 4196-0, 35151-6 #### [facility] CLIA [id number] [address] RBC (Bld) [#/Vol] 2.82 10*6/uL Low 3.90-5.20 [facility] Comment on above: Order Comment: Speci men Type: BLOOD SPECIMEN Ordering Facility: [facility] Address: [address] [place] [address] Performed By: #### 1 4196-0, 41785-8 #### [facility] CLIA [id number] [address] [place] [address] RED CELL MORPH Reviewed: see result s of individual morphologies Normal [facility] Comment on above: Order Comment: Speci men Type: BLOOD SPECIMEN Ordering Facility: [facility] Address: [address] [place] [address] Performed By: #### 1 4196-0, 30889-0 #### [facility] CLIA [id number] [address] WBC (Bld) [#/Vol] 12.50 10*3/uL High 3.70-11.00 [facility] Comment on above: Order Comment: Speci men Type: BLOOD SPECIMEN Ordering Facility: [facility] Address: [address] [place] [address] Performed By: #### 1 4196-0, 63404-7 #### [facility] CLIA [id number] [address] OF [facility] CNPNon 03-23-2023 [place] Telephone ([place]) HAYDEE BUSTAMANTE ([id number]) 1945 F Date Time Provider Department 03/23/23 RACHELLE LEONARD During your visit today, we recorded the following information about you: Rachelle Leonard, CONNIE.COAT OPERATOR INSULATOR 03/23/2023 5:17 PM Signed Please schedule patient [...] (FLONASE) 50 mcg/actuation nasal spray Use 1 [place] in each nostril once daily. - pantoprazole DR (PROTONIX) 40 mg tablet Take 1 tablet by mouth once daily. - albuterol HFA (PROAIR HFA) 90 mcg/actuation inhaler Inhale 2 Puffs as instructed every 4 hours as needed. - vit A,C,K-Kevc-Sqpqdj (OCUVITE PRESERVISION) 2,148 mcg-113 mg-45 mg-17.4mg tab [...] by this patient by: PATIENT Muna Harris ([place]) [facility] for [facility] medications. 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] 03/06/2005 VOICE DISTURBANCE NEC [R49.8] 03/06/2005 Pain in joint, lower leg [M25.569] 10/18/2006 03/02/2018 Embolism and thrombosis (HCC) [I74.9] 11/23/2006 07/07/2021 ARTHROPATHY NOS-UNSPEC [M12.9] 12/05/2006 Enthesopathy of hip region [M76.899] 01/04/2009 07/07/2021 Elevated Liver Enzymes [R74.8] 04/01/2009 Rheumatoid arthritis (HCC) [M06.9] 04/01/2009 03/07/2015 shelter current use of anticoagulant therapy *04/01/2009 Hypertension [...] [facility] CONSULT[facility] 03-23-2023 CONSULT HNO ID: [id number] Author: CHARLOTTE LAZO MD Service: Cardiovascular Medicine [...] factor (HCC) 03/07/2015 Dr. Hurley ([facility]) Unspecified hemorrhoids without mention of complication [...] SPINE FUSN,POST INTERBODY 2011 Dr. Armando at [facility]. Diskectomy and laminectomy PAST SURGICAL HISTORY OF [...] nasal spray No Yes Sig: Use 1 [place] in each nostril once daily. gabapentin (NEURONTIN) [...] CONSULT PROGon 03-23-2023 CONSULT PROG HNO ID: [id number] Author: DANY BECKWITH RPh Service: Pharmacy Author Type: Pharmacist Type: Consult Progress Note Filed: 03/23/2023 17:00 Note Text: PHARMACY ANTICOAGULATION CONSULT PATIENT NAME: Haydee Bustamante DATE of SERVICE: 03/23/2023 TIME of SERVICE: 4:06 PM Indication for Anticoagulation: DVT Goal INR: 2.0 to 3.0 Expected Duration of Therapy: Indefinite Assessment: New Start: No Home Dose: Warfarin 5mg once daily Managed at [facility] 03/19: INR on arrival to [facility] was 9. She was given Vitamin K [...] (SPORANOX) 200 mg ORAL BID phenol 1 [place] (CHLORASEPTIC) 1 [place] MUCOUS MEMBRANE (TOPICAL MOUTH AND THROAT) q [...] patient received education: No Signature: Dany Beckwith [facility] Pager/Extension: [phone] Normal [facility] CONSULT PROG HNO ID: [id number] Author: RACHELLE LEONARD APRN.COAT OPERATOR INSULATOR Service: Infectious Disease Author Type: Nurse Practitioner Type: Consult Progress Note Filed: 03/23/2023 17:10 Note Text: PROGRESS NOTE INFECTIOUS DISEASE BRIEF SUMMARY: 77-year-old female history of rheumatoid arthritis on Humira and methotrexate, 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 COVID-positive -Positive at [facility], negative at [facility] 4. RA on Humira and methotrexate [...] (SPORANOX) 200 mg ORAL BID phenol 1 [place] (CHLORASEPTIC) 1 [place] MUCOUS MEMBRANE (TOPICAL MOUTH AND THROAT) q [...] NURSING PROGon 03-23-2023 NURSING PROG HNO ID: [id number] Author: JOHANNA CAPPS RN Service: ? Author Type: Registered Nurse Type: Nursing Progress Note Filed: 03/23/2023 18:59 Note Text: 1700: Pt refused Warfarin dose due to concerns for INR levels. Sound [employer] notified; plan of care ongoing. Normal [facility] PATHOLOGIST INTERPRETATION C BC/DIFFon 03-23-2023 Geoscience Specialist review Donte (Unsp spec) [Interp] Reviewed by Jamarcus Blue MD [facility] Comment on above: Order Comment: Speci men Type: BLOOD SPECIMEN Ordering Facility: [facility] Address: [address] [place] [address] Performed By: #### 1 4196-0, 09793-2 #### [facility] CLIA [id number] [address] STAFF REVIEW, CBCDIF Normal [facility] Comment on above: Order Comment: Renay adkins Type: BLOOD SPECIMEN Ordering Facility: [facility] Address: [address] [place] [address] Result Comment: Norm ocytic anemia with slight polychromasia and absolute neutrophilic leukocytosis with left shift. Performed By: #### 1 4196-0, 88677-5 #### [facility] CLIA [id number] [address] PT panel Coag (PPP)on 2023 INR Coag (PPP) [Relative time] 2.1 {INR} High 0.9-1.3 [facility] Comment on above: Order Comment: Renay adkins Type: BLOOD SPECIMEN Ordering Facility: [facility] Address: [address] [place] [address] Result Comment: Halle min K Antagonist (VKA) Therapeutic Range: INR 2 to 3 (Target INR of 2.5) Note: For patients treated with VKA drugs, such as warfarin, the [place] [employer] 2012 Guideline recommends [...] 70: 252-289 Performed By: #### 1 4196-0, 45911-8 #### [facility] CLIA [id number] [address] PT Coag (PPP) [Time] 21.0 s High 9.7-13.0 [facility] Comment on above: Order Comment: Speci men Type: BLOOD SPECIMEN Ordering Facility: [facility] Address: [facility] [place] [address] Performed By: #### 1 4196-0, 61128-0 #### [facility] CLIA [id number] [address] [place] THERAPY NTon 03-23-2023 THERAPY NT HNO ID: [id number] Author: UMANG EASLEY, PT Service: Physical Therapy Author Type: Physical Therapist Type: Therapy (PT/OT/Speech/Resp) Filed: 03/23/2023 15:14 Note Text: Physical Therapy Evaluation Summary SERVICE DATE: 03/23/2023 SERVICE TIME: 1340 to 1355 ROOM: [place] [address] PT 6 Clicks Score: 22 DISCHARGE RECOMMENDATIONS Home ASSESSMENT Response to Therapy Interventions: Good Participation in Activities PRECAUTIONS CURRENT HOSPITAL COURSE presented with hemoptysis, found to be COVID positive at [facility]. Imaging showed intraperitoneal air and pneumatosis intestinalia, [...] Skilled Need TREATMENT INTERVENTIONS Evaluation $ Evaluation-Low (29597) Billed Units: 1 unit Skilled Treatment Time [...] [facility] THERAPY NT HNO ID: [id number] Author: LORI SHORT OTR/Cabrera Service: Occupational Therapy Author Type: Occupational Therapist Type: Therapy (PT/OT/Speech/Resp) Filed: 03/23/2023 11:43 Note Text: Occupational Therapy Evaluation Summary SERVICE DATE: 03/23/2023 SERVICE TIME: 858 to 921 ROOM: [place] [address] OT 6 Clicks Score: 22 DISCHARGE RECOMMENDATIONS [...] hemoptysis, found to be COVID positive at [facility]. Imaging showed intraperitoneal air and pneumatosis intestinalia, [...] (ADL) TREATMENT INTERVENTIONS Evaluation, Self Usp Management (81102) Timed Code Treatment (minutes): 8 Skilled Treatment Time (minutes): 23 $ Evaluation - Low (03150) Billed Units: 1 unit Self Usp Management (94375) Treatment Minutes: 8 $ Self Usp Management (50512) Billed Units: 1 unit TRAINING AND EDUCATION [...] DATE: March 23, 2023 TIME: 11:40 AM [facility] ALLIED HEALTHon 03-22-2023 ALLIED HEALTH HNO ID: [id number] Author: TIMUR HERNANDEZ RT(R) Service: Radiology Author Type: Coding Auditor Type: Allied Health Filed: 03/22/2023 09:43 Note [...] PATIENT PRESENTS WITH AN IMPLANTABLE OR ATTACHED ELECTRIC ACCOUNTING MACHINE OPERATOR: No ALLERGIES: Reviewed and unchanged CONTRAST ALLERGY: [...] Speci men Type: BLOOD SPECIMEN Ordering Facility: [facility] Address: [address] [place], [place] [address] Performed By: #### 1 4196-0, 32239-0 #### [facility] CLIA [id number] [address] Hematocrit (Bld) [Volume fraction] 23.1 % Low 36.0-46.0 [facility] Comment on above: Order Comment: Speci men Type: BLOOD SPECIMEN Ordering Facility: [facility] Address: [address] [place] [address] Performed By: #### 1 4196-0, 92917-0 #### [facility] CLIA [id number] [address] OF [facility] Hemoglobin (Bld) [Mass/Vol] 8.1 g/dL Low 11.5-15.5 [facility] Comment on above: Order Comment: Speci men Type: BLOOD SPECIMEN Ordering Facility: [facility] Address: [address] [place] [address] Performed By: #### 1 4196-0, 46687-3 #### [facility] CLIA [id number] [address] [place] [address] MCH (RBC) [Entitic mass] 27.4 pg Normal 26.0-34.0 [facility] Comment on above: Order Comment: Speci men Type: BLOOD SPECIMEN Ordering Facility: [facility] Address: [address] [place] [address] Performed By: #### 1 4196-0, 93089-7 #### [facility] CLIA [id number] [address] [place] [address] OF [facility] MCHC (RBC) [Mass/Vol] 35.1 g/dL Normal 30.5-36.0 [facility] Comment on above: Order Comment: Speci men Type: BLOOD SPECIMEN Ordering Facility: [facility] Address: [address] [place] [address] Performed By: #### 1 4196-0, 97481-2 #### [facility] CLIA [id number] [address] OF [facility] MCV (RBC) [Entitic vol] 78.0 fL Low 80.0-100.[address] [facility] Comment on above: Order Comment: Speci men Type: BLOOD SPECIMEN Ordering Facility: [facility] Address: [address] [place] [address] Performed By: #### 1 4196-0, 59616-4 #### [facility] CLIA [id number] [address] OF [place] Nucleated RBC (Bld) [#/Vol] 10*3/uL Normal <0.01 [facility] Comment on above: Order Comment: Speci men Type: BLOOD SPECIMEN Ordering Facility: [facility] Address: [address] [place] [address] Performed By: #### 1 4196-0, 26761-6 #### [facility] CLIA [id number] 1 [place] [address] [place] Platelet mean volume (Bld) [Entitic vol] 10.3 fL Normal 9.0-12.7 [facility] Comment on above: Order Comment: Speci men Type: BLOOD SPECIMEN Ordering Facility: [facility] Address: [address] [place] [address] Performed By: #### 1 4196-0, 12982-8 #### [facility] CLIA [id number] [address] [place] Platelets (Bld) [#/Vol] 148 10*3/uL Low 150-400 [facility] Comment on above: Order Comment: Speci men Type: BLOOD SPECIMEN Ordering Facility: [facility] Address: [address] [place] [address] Performed By: #### 1 4196-0, 02848-6 #### [facility] CLIA [id number] [address] [place] [address] [place] RBC (Bld) [#/Vol] 2.96 10*6/uL Low 3.90-5.20 [facility] Comment on above: Order Comment: Speci men Type: BLOOD SPECIMEN Ordering Facility: [facility] Address: [address] [place] [address] Performed By: #### 1 4196-0, 51648-2 #### [facility] CLIA [id number] [address] [place] [address] [place] WBC (Bld) [#/Vol] 10.53 10*3/uL Normal 3.70-11.00 [facility] Comment on above: Order Comment: Speci men Type: BLOOD SPECIMEN Ordering Facility: [facility] Address: [address] [place] [address] [place] [address] Performed By: #### 1 4196-0, 42371-8 #### [facility] CLIA [id number] 1 [place] [id number] [place] CONSULT PROGon 03-22-2023 CONSULT PROG HNO ID: [id number] Author: MAGAN VILLAFUERTE DO Service: Pulmonary Disease [...] enzymes), -GERD, -HTN, -h/o disseminated Histoplasmosis in 0233-2565 managed on itraconazole, ne H an M [...] inside the abdomen. INR on arrival to [place] was 9. She given Vitamin K and transferred here. 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 No sustained Rx with Amiodarone, Nitrofurantoin, cancer chemotherapy. Smoking h/o: 46-fnpm-ekgq former smoker, quit in 1989. Late was [...] ([facility]) 03/07/2015 Dr. Hurley ([facility]) Unspecified hemorrhoids without mention of complication [...] SPINE FUSN,POST INTERBODY 2011 Dr. Armando at [facility]. Diskectomy and laminectomy PAST SURGICAL HISTORY OF [...] DATE OF EXAM: Mar 22 2023 9:46AM [facility] 0530 - CT ABD/PEL W [...] on 3:17. Stable dating back to 04/04/2018. Steel Plate Caulker (topogram) images: No significant additional findings. IMPRESSION: [...] be communicated with the ordering provider via [employer] staff message or phone message by [facility] within 2 business days of report finalization. ========= Algorithms for management of incidental imaging findings can be found on the [facility] Intranet Sharepoint site at: [email or web address] %20Incidental%20Findi ngs%20at%20Imaging/Forms/Al lItems.aspx Life Science Teacher: PSCIain Transcribe Date/Time: Mar 22 2023 10:59A [...] [Mass/Vol] 0.8 mg/dL Normal 0.2-1.3 [facility] Comment on above: Order Comment: Speci men Type: BLOOD SPECIMENOrdering Facility: [facility] Address: [address] [place] [address] Performed By: #### 2 4325-3, 68155-9 ####[facility] [id number] [address] OF [facility] Comprehensive metabolic 2000 panelon 03-22-2023 Albumin [Mass/Vol] 2.7 g/dL Low 3.9-4.9 [facility] Comment on above: Order Comment: Speci men Type: BLOOD SPECIMENOrdering Facility: [facility] Address: [address] [place] [address] Performed By: #### 2 4325-3, 68046-4 ####[facility] [id number] [address] [place] ALP [Catalytic activity/Vol] 201 U/L High 34-123 [facility] Comment on above: Order Comment: Speci men Type: BLOOD SPECIMENOrdering Facility: [facility] Address: [address] [place] [address] Performed By: #### 2 4325-3, 95276-7 ####[facility]IA [id number] [place] [address] [place] ALT With P-5'-P [Catalytic activity/Vol] 54 U/L High 7-38 [facility] Comment on above: Order Comment: Speci men Type: BLOOD SPECIMENOrdering Facility: [facility] Address: [address] [place] [address] Performed By: #### 2 4325-3, ####[facility]IA [id number] [place] [address] [place] Anion gap [Moles/Vol] 8 mmol/L Low 9-18 [facility] Comment on above: Order Comment: Speci men Type: BLOOD SPECIMENOrdering Facility: [facility] Address: [address] [place] [address] Performed By: #### 2 4325-3, 25074-1 ####[facility] [id number] [address] [place] AST With P-5'-P [Catalytic activity/Vol] 33 U/L Normal 13-35 [facility] Comment on above: Order Comment: Speci men Type: BLOOD SPECIMENOrdering Facility: [facility] Address: [address] [place] [address] Performed By: #### 2 4325-3, 05808-3 ####[facility]IA [id number] [address] [place] Calcium [Mass/Vol] 8.8 mg/dL Normal 8.5-10.2 [facility] Comment on above: Order Comment: Speci men Type: BLOOD SPECIMENOrdering Facility: [facility] Address: [address] [place] [address] Performed By: #### 2 4325-3, 72921-7 ####[facility]IA [id number] [address] [place] Chloride [Moles/Vol] 100 mmol/L Normal 97-105 [facility] Comment on above: Order Comment: Speci men Type: BLOOD SPECIMENOrdering Facility: [facility] Address: [address] [place] [address] Performed By: #### 2 4325-3, 90264-4 ####[facility]ORYCLIA [id number] [place] [id number] [facility] CO2 [Moles/Vol] 26 mmol/L Normal 22-30 [facility] Comment on above: Order Comment: Speci men Type: BLOOD SPECIMENOrdering Facility: [facility] Address: [address] [place] [address] Performed By: #### 2 4325-3, 28834-2 ####[facility]CLIA [id number] [address] Creatinine [Mass/Vol] 0.83 mg/dL Normal 0.58-0.96 [facility] Comment on above: Order Comment: Speci men Type: BLOOD SPECIMENOrdering Facility: [facility] Address: [address] [place] [address] Performed By: #### 2 4325-3, 77933-1 ####[facility]CLIA [id number] [address] Creatinine and Glomerular filtration rate.predicted panel (S/P/Bld) 74 mL/min/1.73m??? Normal >=60 [facility] Comment on above: Order Comment: Speci men Type: BLOOD SPECIMENOrdering Facility: [facility] Address: [address] [place] [address] Result Comment: Meaghan mated Glomerular Filtration Rate [...] actual GFR. Performed By: #### 2 4325-3, 97672-2 ####[facility] [id number] [place] [address] [place] Glucose [Mass/Vol] 158 mg/dL High 74-99 [facility] Comment on above: Order Comment: Renay adkins Type: BLOOD SPECIMENOrdering Facility: [facility] Address: [address] [place] [address] Result Comment: The [place] Diabetes Association (ADA) provides guidance for cutoff [...] Standards of Medical Care in Diabetes 2016, [place] [employer]. Diabetes Care. 2016.39(Suppl 1). Performed By: #### 2 4325-3, 72318-3 ####[facility] [id number] [place] [address] [place] Potassium [Moles/Vol] 4.0 mmol/L Normal 3.7-5.1 [facility] Comment on above: Order Comment: Renay adkins Type: BLOOD SPECIMENOrdering Facility: [facility] Address: [address] [place] [address] Performed By: #### 2 4325-3, 47910-9 ####[facility]ORYCLIA [id number] [place] [address] [place] Protein [Mass/Vol] 4.9 g/dL Low 6.3-8.0 [facility] Comment on above: Order Comment: Renay adkins Type: BLOOD SPECIMENOrdering Facility: [facility] Address: [address] [place] [address] Performed By: #### 2 4325-3, 32463-3 ####[facility]ORYCLIA [id number] [place] [address] [place] Sodium [Moles/Vol] 134 mmol/L Low 136-144 [facility] Comment on above: Order Comment: Speci men Type: BLOOD SPECIMENOrdering Facility: [facility] Address: [address] [place] [address] Performed By: #### 2 4325-3, 32000-4 ####[facility]ORYCLIA [id number] [place] [address] [place] Urea nitrogen [Mass/Vol] 24 mg/dL High 7-21 [facility] Comment on above: Order Comment: Speci men Type: BLOOD SPECIMENOrdering Facility: [facility] Address: [address] [place] [address] Performed By: #### 2 4325-3, 59277-1 ####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 CLIA [id number] [address] [place] [address] [place] Hepatic function 2000 panelo n 03-22-2023 Albumin [Mass/Vol] 2.6 g/dL Low 3.9-4.9 [facility] Comment on above: Order Comment: Speci men Type: BLOOD SPECIMENOrdering Facility: [facility] Address: [address] [place] [address] Performed By: #### 2 4325-3, 60206-0 ####[facility]ORYCLIA [id number] [place] [address] [place] ALP [Catalytic activity/Vol] 200 U/L High 34-123 [facility] Comment on above: Order Comment: Speci men Type: BLOOD SPECIMENOrdering Facility: [facility] Address: [address] [place] [address] Performed By: #### 2 4325-3, 44982-4 ####[facility]CLIA [id number] [address] [place] ALT With P-5'-P [Catalytic activity/Vol] 53 U/L High 7-38 [facility] Comment on above: Order Comment: Speci men Type: BLOOD SPECIMENOrdering Facility: [facility] Address: [address] [place] [address] Performed By: #### 2 4325-3, 20665-5 ####[facility]CLIA [id number] [place] [address] [place] AST With P-5'-P [Catalytic activity/Vol] 38 U/L High 13-35 [facility] Comment on above: Order Comment: Speci men Type: BLOOD SPECIMENOrdering Facility: [facility] Address: [address] [place] [address] Performed By: #### 2 4325-3, 55205-9 ####[facility] [id number] [place] [address] [place] Bilirubin.conjugated [Mass/Vol] 0.3 mg/dL High <0.2 [facility] Comment on above: Order Comment: Speci men Type: BLOOD SPECIMENOrdering Facility: [facility] Address: [address] [place] [address] Performed By: #### 2 4325-3, 97082-8 ####[facility]CLIA [id number] [address] [place] Protein [Mass/Vol] 5.1 g/dL Low 6.3-8.0 [facility] Comment on above: Order Comment: Speci men Type: BLOOD SPECIMENOrdering Facility: [facility] Address: [address] [place] [address] Performed By: #### 2 4325-3, 23185-0 ####[facility]CLIA [id number] [address] [place] LDH SerPl-cCncon 03-22-2023 LDH [Catalytic activity/Vol] 300 U/L High 135-214 [facility] Comment on above: Order Comment: Speci men Type: BLOOD SPECIMEN [facility] Address: [address] [place] [address] Performed By: #### 1 4196-0, 22986-5 #### [facility] CLIA [id number] [address] [place] [address] [place] Lactate (Bld) [Moles/Vol]on 03-22-2023 Lactate [Moles/Vol] 1.7 mmol/L Normal 0.5-2.2 [facility] Comment on above: Order Comment: Speci men Type: BLOOD SPECIMEN [facility] Address: [address] [place] [address] Performed By: #### 1 4196-0, 56812-1 #### [facility] CLIA [id number] [address] [place] [address] [place] NURSING PROGon 03-22-2023 NURSING PROG HNO ID: [id number] Author: OJ MOLINA RN Service: Nursing Author Type: Registered Nurse Type: Nursing Progress Note Filed: 03/22/2023 09:58 Note Text: Pt to remain in isolation d/t positive covid test at [place] and pt being immunocompromised. Orders received from Dr Geno Hart. Normal [facility] PT panel Coag (PPP)on 2023 INR Coag (PPP) [Relative time] 2.5 {INR} High 0.9-1.3 [facility] Comment on above: Order Comment: Renay adkins Type: BLOOD SPECIMENOrdering Facility: [facility] Address: [address] [place] [address] Result Comment: Halle min K Antagonist (VKA) Therapeutic Range: INR 2 to 3 (Target INR of 2.5) Note: For patients treated with VKA drugs, such as warfarin, the [place] [employer] 2012 Guideline recommends [...] Chest 2012, 141:7S-47S Mitzi RA et al. [facility] 2017, 70: 252-289 Performed By: #### 3 4528-0 ####[facility]ORYCLIA [id number] [address] [place] PT Coag (PPP) [Time] 24.6 s High 9.7-13.0 [facility] Comment on above: Order Comment: Renay adkins Type: BLOOD SPECIMENOrdering Facility: [facility] Address: [address] [place] [address] Performed By: #### 3 4528-0 ####[facility]CLIA [id number] [address] [place] Retics #on 03-22-2023 Reticulocytes (Bld) [#/Vol] 0.76002 10*3/uL Normal 0.018-0.10 0 [facility] Comment on above: Order Comment: Speci men Type: BLOOD SPECIMEN [facility] Address: [address] [place] [address] Performed By: #### 1 4196-0, 79976-6 #### [facility] CLIA [id number] [address] Reticulocytes (Bld) [#/Vol]o n 03-22-2023 Reticulocytes/100 RBC (Bld) 2.9 % High 0.4-2.0 [facility] Comment on above: Order Comment: Speci men Type: BLOOD SPECIMEN [facility] Address: [address] [place] [address] Performed By: #### 1 4196-0, 08410-8 #### [facility] CLIA [id number] [address] [place] [address] OF [facility] CBC panel Auto (Bld)on 03-21 Erythrocyte distribution width (RBC) [Ratio] 16.2 % High 11.5-15.0 [facility] Comment on above: Order Comment: Speci men Type: BLOOD SPECIMEN [facility] Address: [address] [place] [address] Performed By: #### 1 4196-0, 71867-3 #### [facility] CLIA [id number] [address] [place] [address] [place] Hematocrit (Bld) [Volume fraction] 25.9 % Low 36.0-46.0 [facility] Comment on above: Order Comment: Speci men Type: BLOOD SPECIMEN [facility] Address: [address] [place] [address] Performed By: #### 1 4196-0, 20237-0 #### [facility] CLIA [id number] [address] [place] Hemoglobin (Bld) [Mass/Vol] 8.6 g/dL Low 11.5-15.5 [facility] Comment on above: Order Comment: Speci men Type: BLOOD SPECIMEN [facility] Address: [address] [place] [address] Performed By: #### 1 4196-0, 61446-0 #### [facility] CLIA [id number] [address] MCH (RBC) [Entitic mass] 26.8 pg Normal 26.0-34.0 [facility] Comment on above: Order Comment: Speci men Type: BLOOD SPECIMEN [facility] Address: [address] [place] [address] Performed By: #### 1 4196-0, 67299-3 #### [facility] CLIA [id number] [address] [place] [address] MCHC (RBC) [Mass/Vol] 33.2 g/dL Normal 30.5-36.0 [facility] Comment on above: Order Comment: Speci men Type: BLOOD SPECIMEN [facility] Address: [address] [place] [address] Performed By: #### 1 4196-0, 63633-1 #### [facility] CLIA [id number] [address] [place] [address] MCV (RBC) [Entitic vol] 80.7 fL Normal 80.0-100.[address] [facility] Comment on above: Order Comment: Speci men Type: BLOOD SPECIMEN [facility] Address: [address] [place] [address] Performed By: #### 1 4196-0, 18882-5 #### [facility] CLIA [id number] [address] Nucleated RBC (Bld) [#/Vol] 10*3/uL Normal <0.01 [facility] Comment on above: Order Comment: Speci men Type: BLOOD SPECIMEN [facility] Address: [address] [place] [address] Performed By: #### 1 4196-0, 93504-6 #### [facility] CLIA [id number] [address] [place] Platelet mean volume (Bld) [Entitic vol] 10.6 fL Normal 9.0-12.7 [facility] Comment on above: Order Comment: Speci men Type: BLOOD SPECIMEN [facility] Address: [address] [place] [address] Performed By: #### 1 4196-0, 77389-2 #### [facility] CLIA [id number] [address] [place] Platelets (Bld) [#/Vol] 148 10*3/uL Low 150-400 [facility] Comment on above: Order Comment: Speci men Type: BLOOD SPECIMEN [facility] Address: [address] [place] [address] Performed By: #### 1 4196-0, 93933-3 #### [facility] CLIA [id number] [address] [place] RBC (Bld) [#/Vol] 3.21 10*6/uL Low 3.90-5.20 [facility] Comment on above: Order Comment: Speci men Type: BLOOD SPECIMEN [facility] Address: [address] [place] [address] Performed By: #### 1 4196-0, 94598-9 #### [facility] CLIA [id number] [address] [place] WBC (Bld) [#/Vol] 6.94 10*3/uL Normal 3.70-11.00 [facility] Comment on above: Order Comment: Speci men Type: BLOOD SPECIMEN [facility] Address: [address] [place] [address] Performed By: #### 1 4196-0, 31888-6 #### [facility] CLIA [id number] [address] CONSULTon 03-21-2023 CONSULT HNO ID: [id number] Author: SHERIN SHEA DO Service: Hospital Medicine Author Type: Physician Type: Consults Filed: 03/21/2023 17:37 Note Text: DEPARTMENT OF HOSPITAL MEDICINE INITIAL CONSULT SERVICE DATE: 03/21/2023 SERVICE TIME: 10:03 AM Primary Care Physician: Claudine Durán MD NIGHT AND WEEKEND COVERAGE: [place] COVERAGE: After 7pm, please call cross cover pager #[phone] REASON FOR CONSULT: possibly assume care REQUESTING [...] factor (HCC) 03/07/2015 Dr. Hurley ([facility]) Unspecified hemorrhoids without mention of complication [...] SPINE FUSN,POST INTERBODY 2012 Dr. Armando at [facility]. Diskectomy and laminectomy PAST SURGICAL HISTORY OF [...] 4 H PRN remdesivir in NaCl 0.9% Vial-Mate/ADD-[place] 100 mg 275 mL 100 mg [...] (SPORANOX) 200 mg ORAL BID phenol 1 [place] (CHLORASEPTIC) 1 [place] MUCOUS MEMBRANE (TOPICAL MOUTH AND THROAT) q 2 H PRN . ALLERGIES Allerg (more content not included)... 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 INR on arrival to [place] was 9. She given Vitamin K and transferred here. 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 No sustained Rx with Amiodarone, Nitrofurantoin, cancer chemotherapy. Smoking h/o: 33-sfjt-pfxe former smoker, quit in 1989. Late was [...] ([facility]) 03/07/2015 Dr. Hurley ([facility]) Unspecified hemorrhoids without mention of complication [...] SPINE FUSN,POST INTERBODY 2011 Dr. Aramndo at [facility]. Diskectomy and laminectomy PAST SURGICAL HISTORY OF 03/07/1999 removal facial lesion PAST SURGICAL HISTORY OF 08/17/2014 excision soft tissue mass left index finger TONSILLECTOMY PRIMARY/ (more content not included)... Normal [facility] Comprehensive metabolic 2000 panelon 03-21-2023 Albumin [Mass/Vol] 2.8 g/dL Low 3.9-4.9 [facility] Comment on above: Order Comment: Speci men Type: BLOOD SPECIMEN [facility] Address: [address] [place] [address] Performed By: #### 2 4323-8, 77057-9 #### [facility] CLIA [id number] [address] [place] [address] [place] ALP [Catalytic activity/Vol] 215 U/L High 34-123 [facility] Comment on above: Order Comment: Speci men Type: BLOOD SPECIMEN [facility] Address: [address] [place] [address] Performed By: #### 2 4323-8, 07950-8 #### [facility] CLIA [id number] [address] [place] ALT With P-5'-P [Catalytic activity/Vol] 62 U/L High 7-38 [facility] Comment on above: Order Comment: Speci men Type: BLOOD SPECIMEN [facility] Address: [address] [place] [address] Performed By: #### 2 4323-8, 57355-9 #### [facility] CLIA [id number] [address] [place] Anion gap [Moles/Vol] 7 mmol/L Low 9-18 [facility] Comment on above: Order Comment: Speci men Type: BLOOD SPECIMEN [facility] Address: [address] [place], [place] [address] Performed By: #### 2 4323-8, 35843-0 #### [facility] CLIA [id number] [address] AST With P-5'-P [Catalytic activity/Vol] 42 U/L High 13-35 [facility] Comment on above: Order Comment: Speci men Type: BLOOD SPECIMEN Ordering Facility: [facility] Address: [address] [place] [address] Performed By: #### 2 4323-8, 28284-0 #### [facility] CLIA [id number] [address] [place] Bilirubin [Mass/Vol] 0.6 mg/dL Normal 0.2-1.3 [facility] Comment on above: Order Comment: Speci men Type: BLOOD SPECIMEN Ordering Facility: [facility] Address: [address] [place] [address] Performed By: #### 2 4323-8, 49394-3 #### [facility] CLIA [id number] [address] OF [place] Calcium [Mass/Vol] 8.5 mg/dL Normal 8.5-10.2 [facility] Comment on above: Order Comment: Speci men Type: BLOOD SPECIMEN Ordering Facility: [facility] Address: [address] [place] [address] Performed By: #### 2 4323-8, 84630-9 #### [facility] CLIA [id number] 1 [place] [address] [place] Chloride [Moles/Vol] 97 mmol/L Normal 97-105 [facility] Comment on above: Order Comment: Speci men Type: BLOOD SPECIMEN Ordering Facility: [facility] Address: [address] [place] [address] Performed By: #### 2 4323-8, 66098-7 #### [facility] CLIA [id number] [address] [place] CO2 [Moles/Vol] 26 mmol/L Normal 22-30 [facility] Comment on above: Order Comment: Speci men Type: BLOOD SPECIMEN Ordering Facility: [facility] Address: [address] [place] [address] Performed By: #### 2 4323-8, 78578-6 #### [facility] CLIA [id number] [address] [place] Creatinine [Mass/Vol] 0.93 mg/dL Normal 0.58-0.96 [facility] Comment on above: Order Comment: Speci men Type: BLOOD SPECIMEN Ordering Facility: [facility] Address: [address] [place] [address] Performed By: #### 2 4323-8, 91636-0 #### [facility] CLIA [id number] [address] [place] Creatinine and Glomerular filtration rate.predicted panel (S/P/Bld) 64 mL/min/1.73m??? Normal >=60 [facility] Comment on above: Order Comment: Speci men Type: BLOOD SPECIMEN Ordering Facility: [facility] Address: [address] [place] [address] Result Comment: Meaghan mated Glomerular Filtration Rate [...] actual GFR. Performed By: #### 2 4323-8, 60172-9 #### [facility] CLIA [id number] 1 [place] [address] [place] Glucose [Mass/Vol] 162 mg/dL High 74-99 [facility] Comment on above: Order Comment: Renay adkins Type: BLOOD SPECIMEN Ordering Facility: [facility] Address: [address] [id number] Result Comment: The [place] Diabetes Association (ADA) provides guidance for cutoff [...] Standards of Medical Care in Diabetes 2016, [place] [employer]. Diabetes Care. 2016.39(Suppl 1). Performed By: #### 2 4323-8, 35162-2 #### [facility] CLIA [id number] 1 [place] [address] [place] Potassium [Moles/Vol] 4.5 mmol/L Normal 3.7-5.1 [facility] Comment on above: Order Comment: Renay adkins Type: BLOOD SPECIMEN Ordering Facility: [facility] Address: [address] [place] [address] Performed By: #### 2 4323-8, 67920-9 #### [facility] CLIA [id number] 1 [place] [address] [place] Protein [Mass/Vol] 5.0 g/dL Low 6.3-8.0 [facility] Comment on above: Order Comment: Speci men Type: BLOOD SPECIMEN Ordering Facility: [facility] Address: [address] [place] [address] Performed By: #### 2 4323-8, 60159-3 #### [facility] CLIA [id number] [address] [place] Sodium [Moles/Vol] 130 mmol/L Low 136-144 [facility] Comment on above: Order Comment: Speci men Type: BLOOD SPECIMEN Ordering Facility: [facility] Address: [address] [place] [address] Performed By: #### 2 4323-8, 69872-9 #### [facility] CLIA [id number] [address] [place] Urea nitrogen [Mass/Vol] 19 mg/dL Normal 7-21 [facility] Comment on above: Order Comment: Speci men Type: BLOOD SPECIMEN Ordering Facility: [facility] Address: [address] [place] [address] Performed By: #### 2 4323-8, 98316-4 #### [facility] CLIA [id number] [address] [place] ECG COMPLETEon 03-21-2023 ECG COMPLETE Ventricular Rate : 1 03 BPM Atrial Rate : 103 BPM P-R Interval : 134 ms QRS Duration : 80 ms Q-T Interval : 336 ms QTC Calculation(Bazett) : 440 ms Calculated P [place] : 55 degrees Calculated R [place] : 28 degrees Calculated T [place] : 33 degrees SINUS TACHYCARDIA POSSIBLE LEFT ATRIAL ENLARGEMENT LOW VOLTAGE QRS CANNOT RULE OUT ANTERIOR INFARCT , AGE UNDETERMINED ABNORMAL ECG NO PREVIOUS ECGS AVAILABLE Confirmed by MD THAO THOMAS ([id number]) on 03/29/2023 8:55:56 PM NAME : HAYDEE BUSTAMANTE PID : [id number] : 1945 Gender : Female Race : ORD : [id number] Procedure Date : Mar 21 2023 09:24:27 Edit Date : Mar 29 2023 20:55:58 Diagnosis: SINUS TACHYCARDIA POSSIBLE LEFT ATRIAL ENLARGEMENT LOW VOLTAGE QRS CANNOT RULE OUT ANTERIOR INFARCT , AGE UNDETERMINED ABNORMAL ECG NO PREVIOUS ECGS AVAILABLE Confirmed by MD THAO THOMAS ([id number]) on 03/29/2023 8:55:56 PM Test Reason : Check QT Location : 4 : [facility] EM Overread By : MD THAO THOMAS Edited By : MD THAO THOMAS Referred By : , Acquired by : BREN CELIS [facility] ED NOTEon 03-21-2023 ED NOTE HNO ID: [id number] Author: MAGALYS PHILLIPS RN Service: ? Author Type: Registered Nurse Type: ED Notes Filed: 03/21/2023 15:01 Note Text: Report given to Lilia MITCHELL 5100 at this time. No further questions at this time. [facility] ED NOTE HNO ID: [id number] Author: ELKE PELAEZ RN Service: Emergency Medicine Author Type: Registered Nurse Type: ED Notes Filed: 03/21/2023 03:09 Note Text: REPORT GIVEN TO ARJUN MICTHELL [facility] PT panel Coag (PPP)on 2023 INR Coag (PPP) [Relative time] 3.9 {INR} High 0.9-1.3 [facility] Comment on above: Order Comment: Speci men Type: BLOOD SPECIMEN Ordering Facility: [facility] Address: [address] [place] [address], [place] [address] Result Comment: Halle min K Antagonist (VKA) Therapeutic Range: INR 2 to 3 (Target INR of 2.5) Note: For patients treated with VKA drugs, such as warfarin, the [place] [employer] 2012 Guideline recommends [...] 70: 252-289 Performed By: #### 1 4196-0, 59570-7 #### [facility] CLIA [id number] [address] STATES OF [facility] PT Coag (PPP) [Time] 37.0 s High 9.7-13.0 [facility] Comment on above: Order Comment: Speci men Type: BLOOD SPECIMEN Ordering Facility: [facility] Address: [address] [place] [address] Performed By: #### 1 4196-0, 86320-5 #### [facility] CLIA [id number] [address] Procalcitonin SerPl-mCncon 0 03-21-2023 Procalcitonin [Mass/Vol] 0.18 ng/mL High <0.09 [facility] Comment on above: Order Comment: Speci [facility] Type: BLOOD SPECIMEN Ordering Facility: [facility] Address: [address] [place] [address] Result Comment: For a guided interpretation of test results, please visit the Change in Procalcitonin Calculator, [email or web address]. Performed By: #### 2 4323-8, 48730-4 #### [facility] CLIA [id number] [address] XR CHEST 1V FRONTALon 2023 XR [...] small left pleural effusion versus pleural thickening Life Science Teacher: KRYSTAL Transcribe Date/Time: Mar 21 2023 11:07P [...] Renay adkins Type: BLOOD SPECIMEN Ordering Facility: [facility] Address: [address] [place] [address] Performed By: #### 1 4196-0, 90750-4 #### [facility] CLIA [id number] [address] [place] [address] MITOGEN MINUS NIL >7.27 Normal >=0.50 [facility] Comment on above: Order Comment: Renay adkins Type: BLOOD SPECIMEN Ordering Facility: [facility] Address: [address] [place] [address] Performed By: #### 1 4196-0, 54813-2 #### [facility] CLIA [id number] [address] TB GAMMA INTERPRETATION Infection with M [...] Renay adkins Type: BLOOD SPECIMEN Ordering Facility: [facility] Address: [address] [place] [address] Performed By: #### 1 4196-0, 83359-6 #### [facility] CLIA [id number] [address] TB NIL 2.73 IU/mL Normal <=8.00 [facility] Comment on above: Order Comment: Speci men Type: BLOOD SPECIMEN Ordering Facility: [facility] Address: [address] [place] [address] Performed By: #### 1 4196-0, 28136-3 #### [facility] CLIA [id number] [address] TB1 AG MINUS NIL <0.00 Normal <0.35 [facility] Comment on above: Order Comment: Speci men Type: BLOOD SPECIMEN Ordering Facility: [facility] Address: [address] [place] [address] Performed By: #### 1 4196-0, 94942-1 #### [facility] CLIA [id number] [address] TB2 AG MINUS NIL <0.00 Normal <0.35 [facility] Comment on above: Order Comment: Speci men Type: BLOOD SPECIMEN Ordering Facility: [facility] Address: [address] [place] [address] Performed By: #### 1 4196-0, 12700-8 #### [facility] CLIA [id number] [address] [place] Basic metabolic 2000 panelon 03-20-2023 Anion gap [Moles/Vol] 8 mmol/L Low 9-18 [facility] Comment on above: Order Comment: Speci men Type: BLOOD SPECIMEN Ordering Facility: [facility] Address: [address] [place] [address] Performed By: #### 1 4196-0, 69924-6 #### [facility] CLIA [id number] [address] OF [facility] Calcium [Mass/Vol] 8.4 mg/dL Low 8.5-10.2 [facility] Comment on above: Order Comment: Speci men Type: BLOOD SPECIMEN Ordering Facility: [facility] Address: [address] [place] [address] Performed By: #### 1 4196-0, 34018-9 #### [facility] CLIA [id number] [address] [place] Chloride [Moles/Vol] 96 mmol/L Low 97-105 [facility] Comment on above: Order Comment: Renay adkins Type: BLOOD SPECIMEN Ordering Facility: [facility] Address: [address] [place] [address] Performed By: #### 1 4196-0, 28932-2 #### [facility] CLIA [id number] [address] OF [facility] CO2 [Moles/Vol] 24 mmol/L Normal 22-30 [facility] Comment on above: Order Comment: Renay adkins Type: BLOOD SPECIMEN Ordering Facility: [facility] Address: [address] [place] [address] Performed By: #### 1 4196-0, 41494-8 #### [facility] CLIA [id number] [address] [place] [address] Creatinine [Mass/Vol] 0.84 mg/dL Normal 0.58-0.96 [facility] Comment on above: Order Comment: Speci men Type: BLOOD SPECIMEN Ordering Facility: [facility] Address: [address] [place] [address] Performed By: #### 1 4196-0, 79625-6 #### [facility] CLIA [id number] [address] Creatinine and Glomerular filtration rate.predicted panel (S/P/Bld) 73 mL/min/1.73m??? Normal >=60 [facility] Comment on above: Order Comment: Speci men Type: BLOOD SPECIMEN Ordering Facility: [facility] Address: [address] [place] [address] Result Comment: Meaghan mated Glomerular Filtration Rate [...] actual GFR. Performed By: #### 1 4196-0, 34276-6 #### [facility] CLIA [id number] 1 [place] [address] [place] Glucose [Mass/Vol] 77 mg/dL Normal 74-99 [facility] Comment on above: Order Comment: Speci men Type: BLOOD SPECIMEN Ordering Facility: [facility] Address: [address] [place] [address] Result Comment: The [place] [employer] (ADA) provides guidance for cutoff [...] Standards of Medical Care in Diabetes 2016, [place] [employer]. Diabetes Care. 2016.39(Suppl 1). Performed By: #### 1 4196-0, 46160-3 #### [facility] CLIA [id number] 1 [place] [address] [place] Potassium [Moles/Vol] 3.9 mmol/L Normal 3.7-5.1 [facility] Comment on above: Order Comment: Renay men Type: BLOOD SPECIMEN Ordering Facility: [facility] Address: [address] [place] [address] Performed By: #### 1 4196-0, 25699-0 #### [facility] CLIA [id number] 1 [place] [address] [place] Sodium [Moles/Vol] 128 mmol/L Low 136-144 [facility] Comment on above: Order Comment: Abhilashi men Type: BLOOD SPECIMEN Ordering Facility: [facility] Address: [address] [place] [address] Performed By: #### 1 4196-0, 86281-0 #### [facility] CLIA [id number] [address] STATES OF [facility] Urea nitrogen [Mass/Vol] 25 mg/dL High 7-21 [facility] Comment on above: Order Comment: Speci men Type: BLOOD SPECIMEN Ordering Facility: [facility] Address: [address] [place] [address] Performed By: #### 1 4196-0, 48213-2 #### [facility] CLIA [id number] [address] CBC panel Auto (Bld)on 03-20 Erythrocyte distribution width (RBC) [Ratio] 16.3 % High 11.5-15.0 [facility] Comment on above: Order Comment: Speci men Type: BLOOD SPECIMEN Ordering Facility: [facility] Address: [address] [place] [address] Performed By: #### 1 4196-0, 23777-9 #### [facility] CLIA [id number] [address] [place] [address] Hematocrit (Bld) [Volume fraction] 24.6 % Low 36.0-46.0 [facility] Comment on above: Order Comment: Speci men Type: BLOOD SPECIMEN Ordering Facility: [facility] Address: [address] [place] [address] Performed By: #### 1 4196-0, 08100-6 #### [facility] CLIA [id number] [address] OF [facility] Hemoglobin (Bld) [Mass/Vol] 8.1 g/dL Low 11.5-15.5 [facility] Comment on above: Order Comment: Speci men Type: BLOOD SPECIMEN Ordering Facility: [facility] Address: [address] [place] [address] Performed By: #### 1 4196-0, 76871-3 #### [facility] CLIA [id number] [address] MCH (RBC) [Entitic mass] 26.9 pg Normal 26.0-34.0 [facility] Comment on above: Order Comment: Speci men Type: BLOOD SPECIMEN Ordering Facility: [facility] Address: [address] [place] [address] Performed By: #### 1 4196-0, 82129-2 #### [facility] CLIA [id number] [address] MCHC (RBC) [Mass/Vol] 32.9 g/dL Normal 30.5-36.0 [facility] Comment on above: Order Comment: Speci men Type: BLOOD SPECIMEN Ordering Facility: [facility] Address: [address] [place] [address] Performed By: #### 1 4196-0, 80441-8 #### [facility] CLIA [id number] [address] [place] [address] OF [facility] MCV (RBC) [Entitic vol] 81.7 fL Normal 80.0-100.[address] [facility] Comment on above: Order Comment: Speci men Type: BLOOD SPECIMEN Ordering Facility: [facility] Address: [address] [place] [address] Performed By: #### 1 4196-0, 49091-8 #### [facility] CLIA [id number] [address] Nucleated RBC (Bld) [#/Vol] 10*3/uL Normal <0.01 [facility] Comment on above: Order Comment: Speci men Type: BLOOD SPECIMEN Ordering Facility: [facility] Address: [address] [place] [address] Performed By: #### 1 4196-0, 19801-5 #### [facility] CLIA [id number] [address] Platelet mean volume (Bld) [Entitic vol] 10.4 fL Normal 9.0-12.7 [facility] Comment on above: Order Comment: Speci men Type: BLOOD SPECIMEN Ordering Facility: [facility] Address: [address] [place] [address] Performed By: #### 1 4196-0, 92093-3 #### [facility] CLIA [id number] [address] Platelets (Bld) [#/Vol] 126 10*3/uL Low 150-400 [facility] Comment on above: Order Comment: Speci men Type: BLOOD SPECIMEN Ordering Facility: [facility] Address: [address] [place] [address] Result Comment: No c lot detected. Performed By: #### 1 4196-0, 23299-8 #### [facility] CLIA [id number] [address] RBC (Bld) [#/Vol] 3.01 10*6/uL Low 3.90-5.20 [facility] Comment on above: Order Comment: Speci men Type: BLOOD SPECIMEN Ordering Facility: [facility] Address: [address] [place] [address] Performed By: #### 1 4196-0, 08997-9 #### [facility] CLIA [id number] [address] WBC (Bld) [#/Vol] 5.06 10*3/uL Normal 3.70-11.00 [facility] Comment on above: Order Comment: Speci men Type: BLOOD SPECIMEN Ordering Facility: [facility] Address: [address] [place] [address] Performed By: #### 1 4196-0, 31382-9 #### [facility] CLIA [id number] [address] CONSULTon 03-20-2023 CONSULT HNO ID: [id number] Author: GENO HART MD Service: Infectious Disease [...] for recurrent lower extremity DVT, [facility] 03[facility] for hemoptysis, going to the [facility] ED but then sent here due to [...] be COVID-positive. 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 INR on arrival to [place] was 9. She given Vitamin K and transferred here. 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 No sustained Rx with Amiodarone, Nitrofurantoin, cancer chemotherapy. Smoking h/o: 14-svbx-omhm former smoker, quit in 1989. Late was [...] factor (HCC) 03/07/2015 Dr. Hurley ([facility]) Unspecified hemorrhoids without mention of complication [...] SPINE FUSN,POST INTERBODY 2011 Dr. Armando at [facility]. Diskectomy and laminectomy PAST SURGICAL HISTORY OF [...] Speci men Type: BLOOD SPECIMEN Ordering Facility[facility] Address: [address] [place] [address] Performed By: #### 3 3959-8, 57340-5 #### [facility] CLIA [id number] [address] ALP [Catalytic activity/Vol] 207 U/L High 34-123 [facility] Comment on above: Order Comment: Speci men Type: BLOOD SPECIMEN Ordering Facility: [facility] Address: [address] [place] [address] Performed By: #### 3 3959-8, 47298-1 #### [facility] CLIA [id number] [address] ALT With P-5'-P [Catalytic activity/Vol] 65 U/L High 7-38 [facility] Comment on above: Order Comment: Speci men Type: BLOOD SPECIMEN Ordering Facility: [facility] Address: [address] [place] [address] Performed By: #### 3 3959-8, 66757-8 #### [facility] CLIA [id number] [address] Anion gap [Moles/Vol] 8 mmol/L Low 9-18 [facility] Comment on above: Order Comment: Speci men Type: BLOOD SPECIMEN Ordering Facility: [facility] Address: [address] [place] [address] Performed By: #### 3 3959-8, 33329-4 #### [facility] CLIA [id number] [address] OF [facility] AST With P-5'-P [Catalytic activity/Vol] 55 U/L High 13-35 [facility] Comment on above: Order Comment: Speci men Type: BLOOD SPECIMEN Ordering Facility: [facility] Address: [address] [place] [address] Performed By: #### 3 3959-8, 99090-6 #### [facility] CLIA [id number] [address] [place] Bilirubin [Mass/Vol] 0.7 mg/dL Normal 0.2-1.3 [facility] Comment on above: Order Comment: Speci men Type: BLOOD SPECIMEN Ordering Facility: [facility] Address: [address] [place] [address] Performed By: #### 3 3959-8, 72617-3 #### [facility] CLIA [id number] [address] [place] [address] [place] Calcium [Mass/Vol] 8.3 mg/dL Low 8.5-10.2 [facility] Comment on above: Order Comment: Speci men Type: BLOOD SPECIMEN Ordering Facility: [facility] Address: [address] [place] [address] Performed By: #### 3 3959-8, 70780-7 #### [facility] CLIA [id number] [address] [place] [address] [place] Chloride [Moles/Vol] 95 mmol/L Low 97-105 [facility] Comment on above: Order Comment: Speci men Type: BLOOD SPECIMEN Ordering Facility: [facility] Address: [address] [place] [address] Performed By: #### 3 3959-8, 55987-0 #### [facility] CLIA [id number] [address] [place] [address] [place] CO2 [Moles/Vol] 25 mmol/L Normal 22-30 [facility] Comment on above: Order Comment: Speci men Type: BLOOD SPECIMEN Ordering Facility: [facility] Address: [address] [place] [address] Performed By: #### 3 3959-8, 10348-2 #### [facility] CLIA [id number] [address] [place] [address] [place] Creatinine [Mass/Vol] 0.86 mg/dL Normal 0.58-0.96 [facility] Comment on above: Order Comment: Renay adkins Type: BLOOD SPECIMEN Ordering Facility: [facility] Address: [address] [place] [address] Performed By: #### 3 3959-8, 13210-2 #### [facility] CLIA [id number] [address] [place] [address] Creatinine and Glomerular filtration rate.predicted panel (S/P/Bld) 71 mL/min/1.73m??? Normal >=60 [facility] Comment on above: Order Comment: Renay adkins Type: BLOOD SPECIMEN Ordering Facility: [facility] Address: [address] [place] [address] Result Comment: Meaghan mated Glomerular Filtration Rate [...] actual GFR. Performed By: #### 3 3959-8, 65365-4 #### [facility] CLIA [id number] [address] [place] [address] STATES OF [facility] Glucose [Mass/Vol] 84 mg/dL Normal 74-99 [facility] Comment on above: Order Comment: Renay adkins Type: BLOOD SPECIMEN Ordering Facility: [facility] Address: [address] [place] [address] Result Comment: The [place] [employer] (ADA) provides guidance for cutoff [...] Standards of Medical Care in Diabetes 2016, [place] [employer]. Diabetes Care. 2016.39(Suppl 1). Performed By: #### 3 3959-8, 12447-8 #### [facility] CLIA [id number] [address] STATES OF [facility] Potassium [Moles/Vol] 4.3 mmol/L Normal 3.7-5.1 [facility] Comment on above: Order Comment: Speci men Type: BLOOD SPECIMEN [facility]ing Facility[facility] Address: [address] [place] [address] Performed By: #### 3 3959-8, 00153-7 #### [facility] CLIA [id number] [address] STATES OF [facility] Protein [Mass/Vol] 4.7 g/dL Low 6.3-8.0 [facility] Comment on above: Order Comment: Speci men Type: BLOOD SPECIMEN Ordering Facility: [facility] Address: [address] [place] [address] Performed By: #### 3 3959-8, 13660-4 #### [facility] CLIA [id number] [address] Sodium [Moles/Vol] 128 mmol/L Low 136-144 [facility] Comment on above: Order Comment: Speci men Type: BLOOD SPECIMEN [facility]ing Facility[facility] Address: [address] [place] [address] Performed By: #### 3 3959-8, 38942-2 #### [facility] CLIA [id number] [address] STATES OF [place] Urea nitrogen [Mass/Vol] 20 mg/dL Normal 7-21 [facility] Comment on above: Order Comment: Speci men Type: BLOOD SPECIMEN [facility]ing Facility[facility] Address: [address] [place] [address] Performed By: #### 3 3959-8, 86092-1 #### [facility] CLIA [id number] [address] [place] ED NOTEon 03-20-2023 ED NOTE HNO ID: [id number] Author: ELKE PELAEZ RN Service: Emergency Medicine Author Type: Registered Nurse Type: ED Notes Filed: 03/20/2023 17:13 Note Text: Pt given food tray [facility] ED NOTE HNO ID: [id number] Author: ELKE PELAEZ RN Service: Emergency Medicine Author Type: Registered Nurse Type: ED Notes Filed: 03/20/2023 15:44 Note Text: Pt ambulating to bathroom with steady gait Normal [facility] ED NOTE HNO ID: [id number] Author: AMERICA ASTORGA RN Service: Emergency Medicine Author Type: Registered Nurse Type: ED Notes Filed: 03/20/2023 12:24 Note Text: Pt given lunch tray at this time. Normal [facility] ED NOTE HNO ID: [id number] Author: BIBI GONZALEZ RN Service: Emergency Medicine Author Type: Registered Nurse Type: ED Notes Filed: 03/20/2023 06:27 Note Text: Surgery at bedside [facility] ED NOTE HNO ID: [id number] Author: BIBI GONZALEZ RN Service: Emergency Medicine Author Type: Registered Nurse Type: ED Notes Filed: 03/20/2023 06:23 Note Text: Patient ambulatory to restroom and back with steady gait. [facility] ED NOTE HNO ID: [id number] Author: BIBI GONZALEZ RN Service: Emergency Medicine Author Type: Registered Nurse Type: ED Notes Filed: 03/20/2023 02:11 Note Text: Patient ambulatory to restroom and back with steady gait. [facility] PT panel Coag (PPP)on 2023 INR Coag (PPP) [Relative time] 4.7 {INR} High 0.9-1.3 [facility] Comment on above: Order Comment: Speci men Type: BLOOD SPECIMENOrdering Facility: [facility] Address: [address] [place] [id number] Result Comment: Halle min K Antagonist (VKA) Therapeutic Range: INR 2 to 3 (Target INR of 2.5) Note: For patients treated with VKA drugs, such as warfarin, the [place] [employer] 2012 Guideline recommends [...] Chest 2012, 141:7S-47S Mitzi RA, et al. [facility] 2017, 70: 252-289 Performed By: #### 3 4528-0 ####[facility] [id number] [place] [address] [place] PT Coag (PPP) [Time] 44.0 s High 9.7-13.0 [facility] Comment on above: Order Comment: Speci men Type: BLOOD SPECIMENOrdering Facility: [facility] Address: [address] [place] [address] Performed By: #### 3 4528-0 ####[facility] [id number] [address] STATES [place] INR Coag (PPP) [Relative time] 5.7 {INR} High 0.9-1.3 [facility] Comment on above: Order Comment: Speci men Type: BLOOD SPECIMENOrdering Facility: [facility] Address: [address] [place] [address] Result Comment: Halle min K Antagonist (VKA) Therapeutic Range: INR 2 to 3 (Target INR of 2.5) Note: For patients treated with VKA drugs, such as warfarin, the [place] [employer] 2012 Guideline recommends [...] Chest 2012, 141:7S-47S Mitzi RA, et al. [facility] 2017, 70: 252-289 Performed By: #### 3 4528-0 ####[facility] [id number] [address] STATES OF [facility] PT Coag (PPP) [Time] 52.4 s High 9.7-13.0 [facility] Comment on above: Order Comment: Speci men Type: BLOOD SPECIMENOrdering Facility: [facility] Address: [address] [place] [address] Performed By: #### 3 4528-0 ####[facility] [id number] [address] Procalcitonin SerPl-mCncon 0 03-20-2023 Procalcitonin [Mass/Vol] 0.20 ng/mL High <0.09 [facility] Comment on above: Order Comment: Speci men Type: BLOOD SPECIMEN [facility] Address: [address] [place] [address] Result Comment: For a guided interpretation of test results, please visit the Change in Procalcitonin Calculator, [email or web address]. Performed By: #### 3 3959-8, 34254-7 #### [facility] CLIA [id number] [address] Resp path 12b Pnl Spec GWEN+p [...] above: Performed By: #### 6 0566-7 ####[facility]ORYCLIA [id number] [place] [address] [place] Absolute lymphocyte countOrd ered By: Bob Elias on 03-19-2023 Lymphocytes Auto (Unsp spec) [#/Vol] 0.97 10*3/uL 0.83-4.51 [facility] Activated partial thrombopla stin time (aPTT) in platelet poor plasma by coagulation aOrdered By: Bob Elias on 03-19-2023 aPTT Coag (PPP) [Time] 109.6 s 24.1-36.2 [facility] Comment on above: CRITICAL VALUE VERIF IED. CALLED TO MYNOR MITCHELL (ER)03/19/23 1200 Chacho Bernal.RESULTS READ BACK BY SAME. Automated lymphocyte count a s percentage of total leukocytesOrdered By: Bob Elias on 03-19-2023 Lymphocytes/100 WBC Auto (Unsp spec) 15.1 % 19-41 [facility] Basic metabolic 2000 panelon 03-19-2023 Anion gap [Moles/Vol] 8 mmol/L Low 9-18 [facility] Comment on above: Order Comment: Speci men Type: BLOOD SPECIMENOrdering Facility: [facility] Address: [address] [place] [address] Performed By: #### 2 4321-2 ####[facility]ORYCLIA [id number] [place] [address] [place] Calcium [Mass/Vol] 8.9 mg/dL Normal 8.5-10.2 [facility] Comment on above: Order Comment: Speci men Type: BLOOD SPECIMENOrdering Facility: [facility] Address: [address] [place] [address] Performed By: #### 2 4321-2 ####[facility]ORYCLIA [id number] [place] [address] [place] Chloride [Moles/Vol] 95 mmol/L Low 97-105 [facility] Comment on above: Order Comment: Speci men Type: BLOOD SPECIMENOrdering Facility: [facility] Address: [address] [place] [address] Performed By: #### 2 4321-2 ####[facility]ORYCLIA [id number] [address] STATES [place] CO2 [Moles/Vol] 25 mmol/L Normal 22-30 [facility] Comment on above: Order Comment: Speci men Type: BLOOD SPECIMENOrdering Facility: [facility] Address: [address] [place] [address] Performed By: #### 2 4321-2 ####[facility]ORYCLIA [id number] [address] [place] Creatinine [Mass/Vol] 0.88 mg/dL Normal 0.58-0.96 [facility] Comment on above: Order Comment: Speci men Type: BLOOD SPECIMENOrdering Facility: [facility] Address: [address] [place] [address] Performed By: #### 2 4321-2 ####[facility]ORYCLIA [id number] [address] Creatinine and Glomerular filtration rate.predicted panel (S/P/Bld) 69 mL/min/1.73m??? Normal >=60 [facility] Comment on above: Order Comment: Speci men Type: BLOOD SPECIMENOrdering Facility: [facility] Address: [address] [place] [address] Result Comment: Meaghan mated Glomerular Filtration Rate [...] GFR. Performed By: #### 2 4321-2 ####[facility]ORYCLIA [id number] [place] [address] [place] Glucose [Mass/Vol] 87 mg/dL Normal 74-99 [facility] Comment on above: Order Comment: Speci men Type: BLOOD SPECIMENOrdering Facility: [facility] Address: [address] [place] [address] Result Comment: The [place] Diabetes Association (ADA) provides guidance for cutoff [...] Standards of Medical Care in Diabetes 2016, [place] [employer] Association. Diabetes Care. 2016.39(Suppl 1). Performed By: #### 2 4321-2 ####[facility]ORYCLIA [id number] [place] [address] [place] Potassium [Moles/Vol] 4.3 mmol/L Normal 3.7-5.1 [facility] Comment on above: Order Comment: Speci men Type: BLOOD SPECIMENOrdering Facility: [facility] Address: [address] [id number] Performed By: #### 2 4321-2 ####[facility]ORYCLIA [id number] [place] [address] [place] Sodium [Moles/Vol] 128 mmol/L Low 136-144 [facility] Comment on above: Order Comment: Speci men Type: BLOOD SPECIMENOrdering Facility: [facility] Address: [address] [id number] Performed By: #### 2 4321-2 ####[facility]ORYCLIA [id number] [place] [address] [place] Urea nitrogen [Mass/Vol] 27 mg/dL High 7-21 [facility] Comment on above: Order Comment: Speci men Type: BLOOD SPECIMENOrdering Facility: [facility] Address: [address] [id number] Performed By: #### 2 4321-2 ####[facility]ORYCLIA [id number] [place] [address] [place] Basophil percentageOrdered B y: Bob Elias on 03-19-2023 Basophil percentage 9.0 g/dL 12.0-15.0 [facility] Basophil percentage 89 mg/dL 74-106 [facility] Basophil percentage 130 mmol/L 136-145 [facility] Basophil percentage 4.5 mmol/L 3.5-5.1 [facility] Basophil percentage 100 mmol/L 98-107 [facility] Basophils (Bld) [#/Vol] 6.4 10*3/uL 4.4-11.0 [facility] Basophils (Bld) [#/Vol] 4.4 10*3/uL 2.0-7.7 [facility] Basophils/100 WBC (Bld) 1.1 % 0-1 [facility] Basophils/100 WBC (Bld) 68.8 % 47-70 [facility] Basophils/100 WBC (Bld) 10.9 % 0-10 [facility] Basophils/100 WBC (Bld) 2.5 % 0-5 [facility] Chloride [Moles/Vol] 100 mmol/L 98-107 [facility] Eosinophils/100 WBC (Bld) 2.5 % 0-5 [facility] Glucose [Mass/Vol] 89 mg/dL 74-106 [facility] Hemoglobin (Bld) [Mass/Vol] 9.0 g/dL 12.0-15.0 [facility] Monocytes/100 WBC (Bld) 10.9 % 0-10 [facility] Neutrophils (Bld) [#/Vol] 4.4 10*3/uL 2.0-7.7 [facility] Neutrophils/100 WBC (Bld) 68.8 % 47-70 [facility] Potassium [Moles/Vol] 4.5 mmol/L 3.5-5.1 [facility] Sodium [Moles/Vol] 130 mmol/L 136-145 [facility] WBC (Bld) [#/Vol] 6.4 10*3/uL 4.4-11.0 [facility] CBC panel Auto (Bld)on 03-19 Erythrocyte distribution width (RBC) [Ratio] 16.3 % High 11.5-15.0 [facility] Comment on above: Order Comment: Renay adkins Type: BLOOD SPECIMEN [facility] Address: [address] [place] [address] Performed By: #### 1 4196-0, 24962-4 #### [facility] CLIA [id number] [address] [place] [address] OF [facility] Hematocrit (Bld) [Volume fraction] 29.2 % Low 36.0-46.0 [facility] Comment on above: Order Comment: Renay adkins Type: BLOOD SPECIMEN [facility] Address: [address] [place] [address] Performed By: #### 1 4196-0, 81289-0 #### [facility] CLIA [id number] [address] [place] Hemoglobin (Bld) [Mass/Vol] 9.6 g/dL Low 11.5-15.5 [facility] Comment on above: Order Comment: Specbetina adkins Type: BLOOD SPECIMEN [facility] Address: [address] [place] [address] Performed By: #### 1 4196-0, 40546-3 #### [facility] CLIA [id number] [address] [place] MCH (RBC) [Entitic mass] 26.7 pg Normal 26.0-34.0 [facility] Comment on above: Order Comment: Speci men Type: BLOOD SPECIMEN [facility] Address: [address] [place] [address] Performed By: #### 1 4196-0, 98279-9 #### [facility] CLIA [id number] [address] MCHC (RBC) [Mass/Vol] 32.9 g/dL Normal 30.5-36.0 [facility] Comment on above: Order Comment: Speci men Type: BLOOD SPECIMEN [facility] Address: [address] [place] [address] Performed By: #### 1 4196-0, 30102-9 #### [facility] CLIA [id number] [address] [place] [address] MCV (RBC) [Entitic vol] 81.1 fL Normal 80.0-100.[address] [facility] Comment on above: Order Comment: Speci men Type: BLOOD SPECIMEN [facility] Address: [address] [place] [address] Performed By: #### 1 4196-0, 69387-1 #### [facility] CLIA [id number] [address] [place] [address] Nucleated RBC (Bld) [#/Vol] 10*3/uL Normal <0.01 [facility] Comment on above: Order Comment: Speci men Type: BLOOD SPECIMEN [facility] Address: [address] [place] [address] Performed By: #### 1 4196-0, 04489-3 #### [facility] CLIA [id number] [address] Platelet mean volume (Bld) [Entitic vol] 9.6 fL Normal 9.0-12.7 [facility] Comment on above: Order Comment: Speci men Type: BLOOD SPECIMEN [facility] Address: [facility] [place] [address] Performed By: #### 1 4196-0, 69716-4 #### [facility] CLIA [id number] [address] Platelets (Bld) [#/Vol] 144 10*3/uL Low 150-400 [facility] Comment on above: Order Comment: Speci men Type: BLOOD SPECIMEN [facility] Address: [address] [place] [address] Performed By: #### 1 4196-0, 79287-5 #### [facility] CLIA [id number] [address] OF [facility] RBC (Bld) [#/Vol] 3.60 10*6/uL Low 3.90-5.20 [facility] Comment on above: Order Comment: Speci men Type: BLOOD SPECIMEN [facility] Address: [address] [place] [address] Performed By: #### 1 4196-0, 64887-4 #### [facility] CLIA [id number] [address] [place] [address] WBC (Bld) [#/Vol] 7.48 10*3/uL Normal 3.70-11.00 [facility] Comment on above: Order Comment: Speci men Type: BLOOD SPECIMEN [facility] Address: [address] [place] [address] Performed By: #### 1 4196-0, 54138-8 #### [facility] CLIA [id number] [address] [place] [address] Determination of erythrocyte mean corpuscular volume (MCV)Ordered By: Bob Elias on 03-19-2023 MCV (RBC) [Entitic vol] 81.5 fL 81-99 [facility] ED NOTEon 03-19-2023 ED NOTE HNO ID: [id number] Author: BIBI GONZALEZ, RN Service: Emergency Medicine Author Type: Registered Nurse Type: ED Notes Filed: 03/19/2023 20:07 Note Text: CT notified pt is ready [facility] ED NOTE HNO ID: [id number] Author: APRIL SOARES RN Service: ? Author Type: Registered Nurse Type: ED Notes Filed: 03/19/2023 18:06 Note Text: Bed: 07-ED Expected date: 03/19/23 Expected time: Means of arrival: [facility] Comments: MARTÍN MOMIN: AKBAR TRANSFER Normal [facility] ED PROV NOTEon 03-19-2023 ED PROV NOTE HNO ID: [id number] Author: CHACHO ERNST DO Service: Emergency Medicine [...] who presents for pneumoperitoneum. Patient presents from [facility] where she initially presented after having worsening cough with hemoptysis. She states that a few weeks ago she was diagnosed with histoplasmosis for which she has been following with a [employer] dispatcher in [place]. She states that yesterday morning she was woken up from her sleep with persistent coughing and an episode of hemoptysis. She states that she has intermittently had blood tinge to her sputum but states that this was much more than normal. She is on Coumadin for history of prior DVT and states that she has been compliant with this. While she was at [place], she was found to have an INR [...] ([facility]) 03/07/2015 Dr. Hurley ([facility]) Unspecified hemorrhoids without mention of complication [...] [facility] Center ED PROV NOTE HNO ID: [id number] Author: CHACHO ERNST DO Service: Emergency Medicine [...] presents with: Functional Transfers: Pt transferred from [facility] ED for free air and perf bowel. Pt states she initially went to the hospital for ongoing sore throat and one episode of hemoptysis early this morning. Pt denies chest or abd pain. Pt tested positive for Covid at [facility]. HPI Patient is a 77-year-old female with past medical history of DVT on Coumadin, COPD, recent diagnosis of histoplasmosis and Blastomyces, COVID-positive today presenting to the emergency department from was from [facility] due to possible bowel perf on imaging. Pt denies any pain currently. Pt reports that she went to [facility] this morning after spitting up a small amount of bright red blood from a cough which has been ongoing since January. Pt reports having a sore throat at this time but denies any lightheadedness, CP, SOB, abdominal pain, and denies any nausea or vomiting. Per EMS, pt had an INR of 9.4 at [facility]. Patient reports that she is on Coumadin [...] factor (HCC) 03/07/2015 Dr. Hurley ([facility]) Unspecified hemorrhoids without mention of complication [...] SPINE FUSN,POST INTERBODY 2011 Dr. Armando at [facility]. Diskectomy and laminectomy PAST SURGICAL HISTORY OF [...] distribution width (RBC) [Ratio] 16.3 % 11.6-14.6 [facility] Erythrocyte distribution wid th standard deviationOrdered By: Bob Elias on 03-19-2023 Erythrocyte distribution width (RBC) [Entitic vol] 48.3 fL 35.1-43.9 [facility] HISTORY PHYSICALon HISTORY PHYSICAL HNO ID: [id number] Author: PAMELA HALL MD Service: General Surgery [...] in the colon. INR on arrival to [facility] was 9. She given Vitamin K and transferred here. Patient denies any abdominal pain, nausea, vomiting, fevers, or chills. Patient reports normal bowel movements. Slightly tachycardic on arrival. HDS. Repeat CBC, BMP, PT/INR pending. CTAP read in [facility], currently waiting on image transfer from [facility]. Noprevious abdominal surgeries. Last colonoscopy in 2019 [...] factor (HCC) 03/07/2015 Dr. Hurley ([facility]) Unspecified hemorrhoids without mention of complication [...] SPINE FUSN,POST INTERBODY 2011 Dr. Armando at [facility]. Diskectomy and laminectomy PAST SURGICAL HISTORY OF [...] in the colon. INR on arrival to [facility] was 9. She given Vitamin K and transferred here. Pneumatosis intestinalis (more content not included)... Normal [facility] Hematocrit Auto (Bld) [Volum e fraction]Ordered By: Bob Elias on 03-19-2023 Hematocrit (Bld) [Volume fraction] 27.7 % 37-47 [facility] Immature granulocytes/100 WB C Auto (Bld)Ordered By: Bob Elias on 03-19-2023 Immature granulocytes/100 WBC (Bld) 1.600 % 0.0-0.9 [facility] Comment on above: IG% - Immature Granu locytes (promyelocytes, myelocytes and metamyelocytes) > 1% indicates that a LEFT SHIFT is Present. International normalized rat io (INR) calculationOrdered By: Bob Elias on 03-19-2023 INR Coag (PPP) [Relative time] 9.4 {INR} [facility] Comment on above: CRITICAL VALUE VERIF IED. CALLED TO MYNOR MITCHELL (ER)03/19/23 1200 Chacho R Stoner.RESULTS READ BACK BY SAME. Laboratory - Chemistry and C hemistry - challengeOrdered By: Bob Elias on 03-19-2023 CO2 [Moles/Vol] 26.0 mmol/L 21.0-32.0 [facility] Urea nitrogen/Creatinine [Mass ratio] 35.7 mg/mg 10-20 [facility] Laboratory - CoagulationOrde red By: Bob Elias on 03-19-2023 PT Coag (PPP) [Time] 78.0 s 11.7-14.9 [facility] Laboratory - Hematology and Cell countsOrdered By: Bob Elias on 03-19-2023 MCH (RBC) [Entitic mass] 26.5 pg 27.0-32.0 [facility] MCHC (RBC) [Mass/Vol] 32.5 g/dL 32-36 [facility] Nucleated RBC/100 WBC (Bld) [Ratio] 0 % 0-5 [facility] Platelets (Bld) [#/Vol] 145 10*3/uL 150-450 [facility] Laboratory - Microbiology an d Antimicrobial susceptibilityOrdered By: Bob Elias on 03-19-2023 SARS-CoV-2 (COVID-19) RNA GWEN+probe Ql (Unsp spec) SARS-CoV-2 (COVID 19 PCR) [facility] SARS-CoV-2 (COVID-19) RNA GWEN+probe Ql (Unsp spec) SARS-CoV-2 (COVID 19 PCR) [facility] Lactate (Bld) [Moles/Vol]on 03-19-2023 Lactate [Moles/Vol] 1.2 mmol/L Normal 0.5-2.2 [facility] Comment on above: Order Comment: Speci men Type: BLOOD SPECIMEN [facility] Address: [address] [place] [address] Performed By: #### 1 4196-0, 33409-0 #### [facility] CLIA [id number] [address] [id number] [place] No Panel InformationOrdered By: Bob Elias on 03-19-2023 Estimated Creatinine Clearance Calc 44.81 ml/min [facility] Estimated GFR (MDRD) Amer 73 mL/min >60 [facility] Comment on above: GFR Calc Estimated GFR (MDRD) Non-Af Amer 61 mL/min >60 [facility] Comment on above: Non- GFR Calc 26.5 pg 27.0-32.0 [facility] 32.5 g/dL 32-36 [facility] 145 K/mm3 150-450 [facility] 0 % 0-5 [facility] 78.0 SECONDS 11.7-14.9 [facility] 61 mL/min >60 [facility] 73 mL/min >60 [facility] 44.81 ml/min [facility] 35.7 RATIO 10-20 [facility] 26.0 mmol/L 21.0-32.0 [facility] SARS-CoV-2 (COVID 19 PCR) [facility] PT panel Coag (PPP)on 2023 INR Coag (PPP) [Relative time] {INR} High 0.9-1.3 [facility] Comment on above: Order Comment: Speci men Type: BLOOD SPECIMEN [facility] Address: [address] [place] [address] Result Comment: Halle min K Antagonist (VKA) Therapeutic Range: INR 2 to 3 (Target INR of 2.5) Note: For patients treated with VKA drugs, such as warfarin, the [place] [employer] 2012 Guideline recommends [...] Chest 2012, 141:7S-47S Mitzi TOLEDO et al. [facility] 2017, 70: 252-289 Performed By: #### 1 4196-0, 81854-5 #### [facility] CLIA [id number] [address] [place] [address] [place] PT Coag (PPP) [Time] 76.9 s High 9.7-13.0 [facility] Comment on above: Order Comment: Speci men Type: BLOOD SPECIMEN [facility] Address: [address] [place] [address] Performed By: #### 1 4196-0, 93290-8 #### [facility] CLIA [id number] [address] [id number] [place] Platelet mean volume Nicholas-Ec ker (Bld) [Entitic vol]Ordered By: Bob Elias on 03-19-2023 Platelet mean volume (Bld) [Entitic vol] 10.3 fL 6.2-12.0 [facility] RBC Auto (Bld) [#/Vol]Ordere d By: Bob Elias on 03-19-2023 RBC (Bld) [#/Vol] 3.40 10*6/uL 4.2-5.4 [facility] Serum or plasma calcium monica urement (mass/volume)Ordered By: Bob Elias on 03-19-2023 Calcium [Mass/Vol] 9.1 mg/dL 8.5-10.1 [facility] Serum or plasma creatinine m easurement (mass/volume)Ordered By: Bob Elias on 03-19-2023 Creatinine [Mass/Vol] 0.95 mg/dL 0.55-1.02 [facility] Comment on above: The validity of the calculated GFR & GFRAA in patients over 70 years has not been determined. Clinical correlation is essential. Serum or plasma urea nitroge n measurement (mass/volume)Ordered By: Bob Elias on 03-19-2023 Urea nitrogen [Mass/Vol] 34 mg/dL 7-18 [facility] Thin prep Papanicolaou smear with manual screeningOrdered By: Bob Elias on 03-19-2023 Thin prep Papanicolaou smear with manual screening 4 5-15 [facility] COVID & INFLUENZA A/B & RSV NAAT, ROUTINEon 02-07-2023 FLUAV RNA GWEN+probe Ql (Unsp spec) Not detected Not Detected [facility] FLUBV RNA GWEN+probe Ql (Unsp spec) Not detected Not Detected [facility] RSV A RNA GWEN+probe Ql (Unsp spec) Not detected Not Detected [facility] SARS-CoV-2 (COVID-19) RNA GWEN+probe Ql (Resp) Not detected See comment [facility] XR CHEST 2V FRONTAL/LATon [facility] XR Chest PA and Lateralon IMPRESSION: Mild prominence markings RIGHT lung base may be due to known RIGHT middle lobe bronchiectasis. Small infiltrate cannot be excluded. Life Science Teacher: PSCB Transcribe Date/Time: Feb 07 2023 11:42A Dictated by : JASMYN MÉNDEZ MD This examination was interpreted and the report reviewed and electronically signed by: JASMYN MÉNDEZ MD on Feb 07 2023 11:46AM [facility] DIVISION OF RADIOLOGY * * *Final [...] soft tissues: Unremarkable. DIVISION OF RADIOLOGY Provider, [facility] - 02/07/2023 * * *Final Report* [...] lobe bronchiectasis. Small infiltrate cannot be excluded. Life Science Teacher: KRYSTAL Transcribe Date/Time: Feb 07 2023 11:42A Dictated by : JASMYN MÉNDEZ MD This examination was interpreted and the report reviewed and electronically signed by: JASMYN MÉNDEZ MD on Feb 07 2023 11:46AM EST [facility] Radiology Study observation (narrative) [facility] XR Chest PA and LateralOrder ed By: [facility] Provider on 02-07-2023 [facility] INR (POC)on 01-04-2023 INR Coag (PPP) [Relative time] 2.6 {INR} High 0.8 - 1.2 [facility] Internal Quality Check Acceptable [facility] SABINO SCREENING W TOMOon 11-17 [facility] ECG COMPLETEon 08-30-2022 Atrial Rate 75 BPM [facility] Calculated P [place] 63 degrees [facility] Calculated R [place] 46 degrees [facility] Calculated T [place] 58 degrees [facility] P-R Interval 156 ms [facility] QRS Duration 62 ms [facility] QT Interval 358 ms [facility] QTC Calculation (Bazett) 399 ms [facility] Ventricular Rate 75 BPM [facility] CT CHEST WO IVCONon 07-21-19 [facility] XR Pelvis and Hip - left AP and Lateral frogon 12-31-2021 IMPRESSION: No acute pathology. 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 DIVISION OF RADIOLOGY Provider, Narayan Wood [facility] - 12/31/2021 * * *Final Report* * [...] acute pathology. 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 Life Science Teacher: KRYSTAL Transcribe Date/Time: Dec 31 2021 11:55A Dictated by : BANDAR BELL DO This examination was interpreted and the report reviewed and electronically signed by: BANDAR BELL DO on Dec 31 2021 11:58AM EST [facility] Radiology Study observation (narrative) [facility] XR Pelvis and Hip - left AP and Lateral frogOrdered By: [facility]cf Provider on 12-31-2021 [facility] No Panel Informationon 10-18 [facility] SABINO DIAGNOSTIC LTon 10-13-19 22 [facility] US BREAST LTD LTon 2 [facility] SABINO SCREENINGon 09-05-2021 [facility] INR in Blood by Coagulation assayon 07-07-2021 INR Coag (Bld) [Relative time] 1.7 {INR} [facility] Work Phone: Laboratory - Coagulationon 0 07-07-2021 PT Coag (PPP) [Time] 19.5 s 11.7-14.9 [facility] Work Phone: Histoplasma Ag, Urineon 01-1 4-2019 Histoplasma Ag,Urine Not Detected [facility] Comment on above: Performed By: #### H ISUO #### The performing lab is in the report. Interpretation Not Detected Normal Not Detected [facility] Comment on above: Result Comment: INTE RPRETIVE [...] histoplasmosis. Test developed and characteristics determined by [facility]. See Compliance Statement B: [employer]/ Performed by [facility], [address] [place] [id number] [email or web address], Christopher Yen MD - Lab. Director Performed By: #### H ISUO #### The performing lab is in the report. Vital Signs Date Time Vital Sign Value Performing Clinician Facility 10-24-2024 13:12040 Body mass index (BMI) [Ratio] 23.51 kg/m2 Claudine Durán MD Work Phone: [facility] 10-24-2024 13:12-040 Body weight 58.3 kg Claudine Durán MD Work Phone: [facility] 10-24-2024 13:12-040 Diastolic blood pressure 62 mm[Hg] Claudine Durán MD Work Phone: [facility] 10-24-2024 13:12-040 Heart rate 81 /min Claudine Durán MD Work Phone: [facility] 10-24-2024 13:12-0400 Respiratory rate 16 /min Claudine Durán MD Work Phone: [facility] 10-24-2024 13:12-0400 SaO2% (BldA) [Mass fraction] 99 % Claudine Durán MD Work Phone: [facility] 10-24-2024 13:12-0400 Systolic blood pressure 124 mm[Hg] Claudine Durán MD Work Phone: [facility] 10-19-2024 02:41-0400 Diastolic blood pressure 88 mm[Hg] Dr. Claudine Durán MD Work Phone: [facility] 10-19-2024 02:41-0400 Heart rate 81 /min Dr. Claudine Durán MD Work Phone: 0(602)962-518531 [place] [address] 10-19-2024 02:41-0400 Respiratory rate 18 /min Dr. Claudine Durán MD Work Phone: 2(136)915-301831 [place] [address] 10-19-2024 02:41-0400 SaO2% (BldA) [Mass fraction] 99 % Dr. Claudine Durán MD Work Phone: [facility] 10-19-2024 02:41-0400 Systolic blood pressure 112 mm[Hg] Dr. Claudine Durán MD Work Phone: 3(012)537-249431 [place] [address] 10-19-2024 02:37-0400 Body temperature 98.2 [degF] Dr. Claudine Durán MD Work Phone: 2(372)024-711590 [place] [address] 10-19-2024 00:42-0400 Body height 160.[address] Claudine Durán MD Work Phone: 2(524)109-038190 [place] [address] 10-19-2024 00:42-0400 Body mass index (BMI) [Ratio] 23.1 kg/m2 Dr. Claudine Durán MD Work Phone: 0(004)507-607031 [place] [address] 10-19-2024 00:42-0400 Body weight 59.[address] Claudine Durán MD Work Phone: 4(941)084-973490 [place] [address] 10-02-2024 09:57-0400 Body height 160.[address] Claudine Durán MD Work Phone: 1(387)157-591131 [place] [address] 08-27-2024 16:27-0400 Body temperature 97.8 [degF] Dr. Claudine Durán MD Work Phone: 3(640)202-105131 [place] [address] 08-27-2024 16:27-0400 Diastolic blood pressure 53 mm[Hg] Dr. Claudine Durán MD Work Phone: 4(874)332-252831 [place] [address] 08-27-2024 16:27-0400 Heart rate 89 /min Dr. Claudine Durán MD Work Phone: 5(197)649-762531 [place] [address] 08-27-2024 16:27-0400 Respiratory rate 18 /min Dr. Claudine Durán MD Work Phone: 7(377)611-860231 [place] [address] 08-27-2024 16:27-0400 SaO2% (BldA) [Mass fraction] 97 % Dr. Claudine Durán MD Work Phone: 2(879)275-063831 [place] [address] 08-27-2024 16:27-0400 Systolic blood pressure 127 mm[Hg] Dr. Claudine Durán MD Work Phone: 4(411)656-077931 [place] [address] 08-27-2024 05:47-0400 Body mass index (BMI) [Ratio] 24 kg/m2 Dr. Claudine Durán MD Work Phone: 7(707)128-703431 [place] [address] 08-27-2024 05:47-0400 Body weight 61.[address] Claudine Durán MD Work Phone: 3(416)781-773231 [place] [address] 08-23-2024 11:59-0400 Body temperature 98.2 [degF] Dr. Claudine Durán MD Work Phone: 9(631)657-477231 [place] [address] 08-23-2024 11:59-0400 Diastolic blood pressure 82 mm[Hg] Dr. Claudine Durán MD Work Phone: 5(982)250-607431 [place] [address] 08-23-2024 11:59-0400 Heart rate 80 /min Dr. Claudine Durán MD Work Phone: 4(345)915-872331 [place] [address] 08-23-2024 11:59-0400 Respiratory rate 16 /min Dr. Claudine Durán MD Work Phone: 7(911)903-093790 [place] [address] 08-23-2024 11:59-0400 SaO2% (BldA) [Mass fraction] 100 % Dr. Claudine Durán MD Work Phone: 0(303)027-415831 [place] [address] 08-23-2024 11:59-0400 Systolic blood pressure 148 mm[Hg] Dr. Claudine Durán MD Work Phone: 7(942)829-657490 [place] [address] 08-23-2024 11:43-0400 Body height 160.[address] Claudine Durán MD Work Phone: 0(156)865-178731 [place] [address] 08-23-2024 11:43-0400 Body mass index (BMI) [Ratio] 22.8 kg/m2 Dr. Claudine Durán MD Work Phone: 8(193)177-152490 [place] [address] 08-23-2024 11:43-0400 Body weight 58.[address] Claudine Durán MD Work Phone: 5(536)545-729390 [place] [address] 08-21-2024 11:14-0400 Body weight 59.[address] Claudine Durán MD Work Phone: 7(567)618-266690 [place] [address] 07-24-2024 10:25-0400 Body height 160.[address] Claudine Durán MD Work Phone: 7(836)173-917790 [place] [address] 07-24-2024 10:25-0400 Body weight 60.[address] Claudine Durán MD Work Phone: 8(417)879-083690 [place] [address] 07-22-2024 14:20-0400 Body height 157.5 cm Brissa Chester APRN.COAT OPERATOR INSULATOR Work Phone: [facility] 07-22-2024 14:20-0400 Body mass index (BMI) [Ratio] 23.67 kg/m2 Brissa Chester DIGITAL COMMUNICATIONS MANAGER.COAT OPERATOR INSULATOR Work Phone: [facility] 07-22-2024 14:20-0400 Body weight 58.7 kg Brissa Chester DIGITAL COMMUNICATIONS MANAGER.COAT OPERATOR INSULATOR Work Phone: [facility] 07-22-2024 14:20-0400 Diastolic blood pressure 65 mm[Hg] Brissa Chester DIGITAL COMMUNICATIONS MANAGER.COAT OPERATOR INSULATOR Work Phone: [facility] 07-22-2024 14:20-0400 Heart rate 75 /min Brissa Chester DIGITAL COMMUNICATIONS MANAGER.COAT OPERATOR INSULATOR Work Phone: [facility] 07-22-2024 14:20-0400 Respiratory rate 18 /min Brissa Chester DIGITAL COMMUNICATIONS MANAGER.COAT OPERATOR INSULATOR Work Phone: [facility] 07-22-2024 14:20-0400 SaO2% (BldA) [Mass fraction] 98 % Brissa Chester DIGITAL COMMUNICATIONS MANAGER.COAT OPERATOR INSULATOR Work Phone: [facility] 07-22-2024 14:20-0400 Systolic blood pressure 140 mm[Hg] Brissa Chester DIGITAL COMMUNICATIONS MANAGER.COAT OPERATOR INSULATOR Work Phone: [facility] 06-27-2024 08:19-0400 Body height 160.[address] Claudine Durán MD Work Phone: [facility] 06-27-2024 08:19-0400 Body weight 58.[address] Claudine Durán MD Work Phone: [facility] 06-20-2024 10:09-0400 Body mass index (BMI) [Ratio] 22.8 kg/m2 Dr. Claudine Durán MD Work Phone: [facility] 06-20-2024 10:09-0400 Body weight 58.[address] Claudine Durán MD Work Phone: [facility] 06-20-2024 10:09-0400 Diastolic blood pressure 74 mm[Hg] Dr. Claudine Durán MD Work Phone: [facility] 06-20-2024 10:09-0400 Heart rate 85 /min Dr. Claudine Durán MD Work Phone: [facility] 06-20-2024 10:09-0400 Respiratory rate 18 /min Dr. Claudine Durán MD Work Phone: 0(862)561-781990 [place] [address] 06-20-2024 10:09-0400 SaO2% (BldA) [Mass fraction] 98 % Dr. Claudine Durán MD Work Phone: 5(106)903-614931 [place] [address] 06-20-2024 10:09-0400 Systolic blood pressure 125 mm[Hg] Dr. Claudine Durán MD Work Phone: 1(924)963-869231 [place] [address] 05-28-2024 08:23-0400 Body mass index (BMI) [Ratio] 21.9 kg/m2 Dr. Claudine Durán MD Work Phone: 3(269)579-731431 [place] [address] 05-28-2024 08:20-0400 Body height 160.[address] Claudine Durán MD Work Phone: 9(850)412-906031 [place] [address] 05-28-2024 08:20-0400 Body weight 56.[address] Claudine Durán MD Work Phone: 4(453)511-566831 [place] [address] 05-28-2024 08:10-0400 Diastolic blood pressure 54 mm[Hg] Dr. Claudine Durán MD Work Phone: 4(429)860-803231 [place] [address] 05-28-2024 08:10-0400 Heart rate 84 /min Dr. Claudine Durná MD Work Phone: 0(647)005-317831 [place] [address] 05-28-2024 08:10-0400 SaO2% (BldA) [Mass fraction] 98 % Dr. Claudine Durán MD Work Phone: 9(722)531-121531 [place] [address] 05-28-2024 08:10-0400 Systolic blood pressure 100 mm[Hg] Dr. Claudine Durán MD Work Phone: 1(208)702-109131 [place] [address] 05-20-2024 12:53-0400 Body height 159.5 cm Jimbo Swanson APRN.AMUSEMENT RIDE OPERATOR Work Phone: 6(459)893-403876 [place] [address] 05-20-2024 12:53-0400 Body mass index (BMI) [Ratio] 23.23 kg/m2 Jimbo Swanson APRN.AMUSEMENT RIDE OPERATOR Work Phone: [facility] 05-20-2024 12:53-0400 Body weight 59.1 kg Jimbo Swanson DIGITAL COMMUNICATIONS MANAGER.AMUSEMENT RIDE OPERATOR Work Phone: [facility] 05-20-2024 12:53-0400 Diastolic blood pressure 65 mm[Hg] Jimbo Swanson DIGITAL COMMUNICATIONS MANAGER.AMUSEMENT RIDE OPERATOR Work Phone: [facility] 05-20-2024 12:53-0400 Heart rate 92 /min Jimbo Swanson DIGITAL COMMUNICATIONS MANAGER.AMUSEMENT RIDE OPERATOR Work Phone: [facility] 05-20-2024 12:53-0400 Respiratory rate 16 /min Jimbo Swanson DIGITAL COMMUNICATIONS MANAGER.AMUSEMENT RIDE OPERATOR Work Phone: [facility] 05-20-2024 12:53-0400 Systolic blood pressure 113 mm[Hg] Jimbo Swanson DIGITAL COMMUNICATIONS MANAGER.AMUSEMENT RIDE OPERATOR Work Phone: [facility] 05-05-2024 08:34-0400 Diastolic blood pressure 71 mm[Hg] Adalid Maret DIGITAL COMMUNICATIONS MANAGER.COAT OPERATOR INSULATOR Work Phone: [facility] 05-05-2024 08:34-0400 Heart rate 82 /min Adalid Maret DIGITAL COMMUNICATIONS MANAGER.COAT OPERATOR INSULATOR Work Phone: [facility] 05-05-2024 08:34-0400 Systolic blood pressure 139 mm[Hg] Adalid Maret DIGITAL COMMUNICATIONS MANAGER.COAT OPERATOR INSULATOR Work Phone: [facility] 04-30-2024 13:04-0400 Body height 160 cm [facility] 04-30-2024 13:04-0400 Body mass index (BMI) [Ratio] 23.21 kg/m2 [facility] 04-30-2024 13:04-0400 Body weight 59.42 kg [facility] 04-30-2024 13:04-0400 Diastolic blood pressure 63 mm[Hg] [facility] 04-30-2024 13:04-0400 Heart rate 88 /min [facility] 04-30-2024 13:04-0400 Respiratory rate 16 /min [facility] 04-30-2024 13:04-0400 Systolic blood pressure 115 mm[Hg] [facility] 04-21-2024 10:44-0500 Body height 160 cm Geno Hart MD Work Phone: [facility] 04-21-2024 10:44-0500 Body mass index (BMI) [Ratio] 23.82 kg/m2 Geno Hart MD Work Phone: [facility] 04-21-2024 10:44-0500 Body temperature 97.9 [degF] Geno Hart MD Work Phone: [facility] 04-21-2024 10:44-0500 Body weight 61 kg Geno Hart MD Work Phone: [facility] 04-21-2024 10:44-0500 Diastolic blood pressure 84 mm[Hg] Geno Hart MD Work Phone: [facility] 04-21-2024 10:44-0500 Heart rate 103 /min Geno Hart MD Work Phone: [facility] 04-21-2024 10:44-0500 Respiratory rate 18 /min Geno Hart MD Work Phone: [facility] 04-21-2024 10:44-0500 SaO2% (BldA) [Mass fraction] 97 % Geno Hart MD Work Phone: [facility] 04-21-2024 10:44-0500 Systolic blood pressure 146 mm[Hg] Geno Hart MD Work Phone: [facility] 03-21-2024 09:28-0500 Body height 160 cm Juvencio Saeed MD Work Phone: [facility] 03-21-2024 09:28-0500 Body mass index (BMI) [Ratio] 23.03 kg/m2 Juvencio Saeed MD Work Phone: [facility] 03-21-2024 09:28-0500 Body weight 58.97 kg Juvencio Saeed MD Work Phone: [facility] 03-21-2024 09:28-0500 Diastolic blood pressure 77 mm[Hg] Juvencio Saeed MD Work Phone: [facility] 03-21-2024 09:28-0500 Heart rate 96 /min Juvencio Saeed MD Work Phone: [facility] 03-21-2024 09:28-0500 Respiratory rate 18 /min Juvencio Saeed MD Work Phone: [facility] 03-21-2024 09:28-0500 SaO2% (BldA) [Mass fraction] 96 % Juvencio Saeed MD Work Phone: [facility] Comment on above: RA 03-21-2024 09:28-0500 Systolic blood pressure 141 mm[Hg] Juvencio Saeed MD Work Phone: [facility] 02-29-2024 16:45-0500 Body mass index (BMI) [Ratio] 22.92 kg/m2 Claudine Durán MD Work Phone: [facility] 02-29-2024 16:45-0500 Body temperature 98.8 [degF] Claudine Durán MD Work Phone: [facility] 02-29-2024 16:45-0500 Body weight 58.7 kg Claudine Durán MD Work Phone: [facility] 02-29-2024 16:45-0500 Diastolic blood pressure 86 mm[Hg] Claudine Durán MD Work Phone: [facility] 02-29-2024 16:45-0500 Heart rate 85 /min Claudine Durán MD Work Phone: [facility] 02-29-2024 16:45-0500 Respiratory rate 16 /min Claudine Durán MD Work Phone: [facility] 02-29-2024 16:45-0500 SaO2% (BldA) [Mass fraction] 97 % Claudine Durán MD Work Phone: [facility] 02-29-2024 16:45-0500 Systolic blood pressure 138 mm[Hg] Claudine Durán MD Work Phone: [facility] 01-02-2024 09:09-0500 Body height 160 cm Lili Roche MD Work Phone: [facility] 01-02-2024 09:09-0500 Body mass index (BMI) [Ratio] 21.97 kg/m2 Lili Roche MD Work Phone: [facility] 01-02-2024 09:09-0500 Body weight 56.25 kg Lili Roche MD Work Phone: [facility] 01-02-2024 09:09-0500 Diastolic blood pressure 57 mm[Hg] Lili Roche MD Work Phone: [facility] 01-02-2024 09:09-0500 Heart rate 81 /min Lili Roche MD Work Phone: [facility] 01-02-2024 09:09-0500 SaO2% (BldA) [Mass fraction] 97 % Lili Roche MD Work Phone: [facility] 01-02-2024 09:09-0500 Systolic blood pressure 124 mm[Hg] Lili Roche MD Work Phone: [facility] 12-18-2023 11:02-0400 Body height 160 cm Geno Hart MD Work Phone: [facility] 12-18-2023 11:02-0400 Body mass index (BMI) [Ratio] 22.3 kg/m2 Geno Hart MD Work Phone: [facility] 12-18-2023 11:02-0400 Body temperature 98.71 [degF] Geno Hart MD Work Phone: [facility] 12-18-2023 11:02-0400 Body weight 57.11 kg Geno Hart MD Work Phone: [facility] 12-18-2023 11:02-0400 Diastolic blood pressure 75 mm[Hg] Geno Hart MD Work Phone: [facility] 12-18-2023 11:02-0400 Heart rate 84 /min Geno Hart MD Work Phone: [facility] 12-18-2023 11:02-0400 Respiratory rate 16 /min Geno Hart MD Work Phone: [facility] 12-18-2023 11:02-0400 SaO2% (BldA) [Mass fraction] 98 % Geno Hart MD Work Phone: [facility] 12-18-2023 11:02-0400 Systolic blood pressure 146 mm[Hg] Geno Hart MD Work Phone: [facility] 10-18-2023 10:03-0400 Body height 160 cm Bibi Alegria DIGITAL COMMUNICATIONS MANAGER.COAT OPERATOR INSULATOR Work Phone: [facility] 10-18-2023 10:03-0400 Body mass index (BMI) [Ratio] 20.62 kg/m2 Bibi Alegria DIGITAL COMMUNICATIONS MANAGER.COAT OPERATOR INSULATOR Work Phone: [facility] 10-18-2023 10:03-0400 Body weight 52.8 kg Bibi Alegria DIGITAL COMMUNICATIONS MANAGER.COAT OPERATOR INSULATOR Work Phone: [facility] 10-18-2023 10:03-0400 Diastolic blood pressure 60 mm[Hg] Bibi Alegria DIGITAL COMMUNICATIONS MANAGER.COAT OPERATOR INSULATOR Work Phone: [facility] 10-18-2023 10:03-0400 Heart rate 82 /min Bibi Alegria DIGITAL COMMUNICATIONS MANAGER.COAT OPERATOR INSULATOR Work Phone: [facility] 10-18-2023 10:03-0400 SaO2% (BldA) [Mass fraction] 99 % Bibi Alegria DIGITAL COMMUNICATIONS MANAGER.COAT OPERATOR INSULATOR Work Phone: [facility] 10-18-2023 10:03-0400 Systolic blood pressure 120 mm[Hg] Bibi Alegria DIGITAL COMMUNICATIONS MANAGER.COAT OPERATOR INSULATOR Work Phone: [facility] 10-11-2023 13:05-0400 Body mass index (BMI) [Ratio] 20.54 kg/m2 Jimbo Swanson DIGITAL COMMUNICATIONS MANAGER.AMUSEMENT RIDE OPERATOR Work Phone: [facility] 10-11-2023 13:05-0400 Body weight 52.6 kg Jimbo Swanson DIGITAL COMMUNICATIONS MANAGER.AMUSEMENT RIDE OPERATOR Work Phone: [facility] 10-11-2023 13:05-0400 Diastolic blood pressure 62 mm[Hg] Jimbo Swanson DIGITAL COMMUNICATIONS MANAGER.AMUSEMENT RIDE OPERATOR Work Phone: [facility] 10-11-2023 13:05-0400 Heart rate 68 /min Jimbo Swanson DIGITAL COMMUNICATIONS MANAGER.AMUSEMENT RIDE OPERATOR Work Phone: [facility] 10-11-2023 13:05-0400 Respiratory rate 16 /min Jimbo Swanson DIGITAL COMMUNICATIONS MANAGER.AMUSEMENT RIDE OPERATOR Work Phone: [facility] 10-11-2023 13:05-0400 Systolic blood pressure 107 mm[Hg] Jimbo Swanson DIGITAL COMMUNICATIONS MANAGER.AMUSEMENT RIDE OPERATOR Work Phone: [facility] 08-28-2023 08:48-0400 Body height 160 cm Geno Hart MD Work Phone: [facility] 08-28-2023 08:48-0400 Body mass index (BMI) [Ratio] 23.45 kg/m2 Geon Hart MD Work Phone: [facility] 08-28-2023 08:48-0400 Body temperature 98.29 [degF] Geno Hart MD Work Phone: [facility] 08-28-2023 08:48-0400 Body weight 60.06 kg Geno Hart MD Work Phone: [facility] 08-28-2023 08:48-0400 Diastolic blood pressure 69 mm[Hg] Geno Hart MD Work Phone: [facility] 08-28-2023 08:48-0400 Heart rate 79 /min Geno Hart MD Work Phone: [facility] 08-28-2023 08:48-0400 Respiratory rate 18 /min Geno Hart MD Work Phone: [facility] 08-28-2023 08:48-0400 SaO2% (BldA) [Mass fraction] 98 % Geno Hart MD Work Phone: [facility] 08-28-2023 08:48-0400 Systolic blood pressure 129 mm[Hg] Geno Hart MD Work Phone: [facility] 08-27-2023 08:25-0400 Body height 160 cm William Messina DO Work Phone: [facility] 08-27-2023 08:25-0400 Body mass index (BMI) [Ratio] 22.67 kg/m2 William Messina DO Work Phone: [facility] 08-27-2023 08:25-0400 Body weight 58.06 kg William Messina DO Work Phone: [facility] 08-27-2023 08:25-0400 Diastolic blood pressure 68 mm[Hg] William Messian DO Work Phone: [facility] 08-27-2023 08:25-0400 Heart rate 81 /min William Messina DO Work Phone: [facility] 08-27-2023 08:25-0400 SaO2% (BldA) [Mass fraction] 99 % William Messina DO Work Phone: [facility] 08-27-2023 08:25-0400 Systolic blood pressure 116 mm[Hg] William Messina DO Work Phone: [facility] 08-22-2023 10:38-0400 Body mass index (BMI) [Ratio] 23.19 kg/m2 Claudine Durán MD Work Phone: [facility] 08-22-2023 10:38-0400 Body temperature 96.01 [degF] Claudine Durán MD Work Phone: [facility] 08-22-2023 10:38-0400 Body weight 59.38 kg Claudine Durán MD Work Phone: [facility] 08-22-2023 10:38-0400 Diastolic blood pressure 72 mm[Hg] Claudine Durán MD Work Phone: [facility] 08-22-2023 10:38-0400 Heart rate 70 /min Claudine Durán MD Work Phone: [facility] 08-22-2023 10:38-0400 Respiratory rate 18 /min Claudine Durán MD Work Phone: [facility] 08-22-2023 10:38-0400 SaO2% (BldA) [Mass fraction] 98 % Claudine Durán MD Work Phone: [facility] 08-22-2023 10:38-0400 Systolic blood pressure 116 mm[Hg] Claudine Durán MD Work Phone: [facility] 08-08-2023 14:39-0400 Body mass index (BMI) [Ratio] 22.32 kg/m2 Twyla Mason DIGITAL COMMUNICATIONS MANAGER.COAT OPERATOR INSULATOR Work Phone: [facility] 08-08-2023 14:39-0400 Body weight 57.15 kg Twyla Mason DIGITAL COMMUNICATIONS MANAGER.COAT OPERATOR INSULATOR Work Phone: [facility] 08-08-2023 14:39-0400 Diastolic blood pressure 72 mm[Hg] Twyla Mason DIGITAL COMMUNICATIONS MANAGER.COAT OPERATOR INSULATOR Work Phone: [facility] 08-08-2023 14:39-0400 Heart rate 78 /min Twyla Mason DIGITAL COMMUNICATIONS MANAGER.COAT OPERATOR INSULATOR Work Phone: [facility] 08-08-2023 14:39-0400 Systolic blood pressure 136 mm[Hg] Twyla Mason DIGITAL COMMUNICATIONS MANAGER.COAT OPERATOR INSULATOR Work Phone: [facility] 07-10-2023 14:22-0400 Body mass index (BMI) [Ratio] 21.79 kg/m2 Jimbo Swanson DIGITAL COMMUNICATIONS MANAGER.AMUSEMENT RIDE OPERATOR Work Phone: [facility] 07-10-2023 14:22-0400 Body weight 55.79 kg Jimbo Swanson DIGITAL COMMUNICATIONS MANAGER.AMUSEMENT RIDE OPERATOR Work Phone: [facility] 07-10-2023 14:22-0400 Diastolic blood pressure 66 mm[Hg] Jimbo Swanson DIGITAL COMMUNICATIONS MANAGER.AMUSEMENT RIDE OPERATOR Work Phone: [facility] 07-10-2023 14:22-0400 Heart rate 94 /min Jimbo Swanson DIGITAL COMMUNICATIONS MANAGER.AMUSEMENT RIDE OPERATOR Work Phone: [facility] 07-10-2023 14:22-0400 Respiratory rate 16 /min Jimbo Sans DIGITAL COMMUNICATIONS MANAGER.AMUSEMENT RIDE OPERATOR Work Phone: [facility] 07-10-2023 14:22-0400 Systolic blood pressure 119 mm[Hg] Jimbo Jv DIGITAL COMMUNICATIONS MANAGER.AMUSEMENT RIDE OPERATOR Work Phone: [facility] 06-05-2023 14:44-0400 Body mass index (BMI) [Ratio] 21.91 kg/m2 Claudine Durán MD Work Phone: [facility] 06-05-2023 14:44-0400 Body temperature 98.2 [degF] Claudine Durán MD Work Phone: [facility] 06-05-2023 14:44-0400 Body weight 56.11 kg Claudine Durán MD Work Phone: [facility] 06-05-2023 14:44-0400 Diastolic blood pressure 74 mm[Hg] Claudine Durán MD Work Phone: [facility] 06-05-2023 14:44-0400 Heart rate 93 /min Claudine Durán MD Work Phone: [facility] 06-05-2023 14:44-0400 Respiratory rate 18 /min Claudine Durán MD Work Phone: [facility] 06-05-2023 14:44-0400 SaO2% (BldA) [Mass fraction] 96 % Claudine Durán MD Work Phone: [facility] 06-05-2023 14:44-0400 Systolic blood pressure 122 mm[Hg] Claudine Durán MD Work Phone: [facility] 04-30-2023 12:45-0400 Body temperature 97.6 [degF] Dr. Claudine Durán Work Phone: [facility] 04-30-2023 12:45-0400 Diastolic blood pressure 61 mm[Hg] Dr. Claudine Durán Work Phone: [facility] 04-30-2023 12:45-0400 Heart rate 97 /min Dr. Claudine Durán Work Phone: 1(605)136-018631 [place] [address] 04-30-2023 12:45-0400 Respiratory rate 16 /min Dr. Claudine uDrán Work Phone: 6(582)270-491631 [place] [address] 04-30-2023 12:45-0400 SaO2% (BldA) [Mass fraction] 95 % Dr. Claudine Durán Work Phone: 0(677)195-082231 [place] [address] 04-30-2023 12:45-0400 Systolic blood pressure 102 mm[Hg] Dr. Claudine Durán Work Phone: 2(704)262-764531 [place] [address] 04-25-2023 12:25-0500 Body height 160.[address] Claudine Durán Work Phone: 9(973)571-948131 [place] [address] 04-25-2023 12:25-0500 Body weight 54.[address] Claudine Durán Work Phone: 7(526)409-290131 [place] [address] 04-24-2023 12:11-0500 Body mass index (BMI) [Ratio] 21.2 kg/m2 Dr. Claudine Durán Work Phone: 5(046)032-945931 [place] [address] 04-16-2023 07:18-0500 Heart rate 94 /min Dr. Claudine Durán Work Phone: 8(240)624-368131 [place] [address] 04-16-2023 07:18-0500 Respiratory rate 18 /min Dr. Claudine Durán Work Phone: 7(921)409-487831 [place] [address] 04-16-2023 07:18-0500 SaO2% (BldA) [Mass fraction] 98 % Dr. Claudine Durán Work Phone: 6(074)601-096831 [place] [address] 04-15-2023 14:36-0500 Body temperature 98.5 [degF] Dr. Claudine Durán Work Phone: 7(979)050-840731 [place] [address] 04-15-2023 14:36-0500 Diastolic blood pressure 61 mm[Hg] Dr. Claudine Durán Work Phone: 9(495)095-390131 [place] [address] 04-15-2023 14:36-0500 Systolic blood pressure 106 mm[Hg] Dr. Claudine Durán Work Phone: 2(774)255-893431 [place] [address] 04-11-2023 15:11-0500 Body height 160.[address] Claudine Durán Work Phone: 4(001)936-890431 [place] [address] 04-11-2023 15:11-0500 Body weight 58.[address] Claudine Durán Work Phone: 1(480)262-294731 [place] [address] 04-10-2023 14:06-0500 Body mass index (BMI) [Ratio] 22.9 kg/m2 Dr. Claudine Durán Work Phone: 0(355)407-234131 [place] [address] 04-05-2023 08:40-0500 Body temperature 98.1 [degF] Dr. Claudine Durán Work Phone: 1(721)717-850631 [place] [address] 04-05-2023 08:40-0500 Diastolic blood pressure 65 mm[Hg] Dr. Claudine Durán Work Phone: 8(819)328-584431 [place] [address] 04-05-2023 08:40-0500 Heart rate 98 /min Dr. Claudine Durán Work Phone: 0(663)474-828831 [place] [address] 04-05-2023 08:40-0500 Respiratory rate 16 /min Dr. Claudine Durán Work Phone: 0(618)352-710331 [place] [address] 04-05-2023 08:40-0500 SaO2% (BldA) [Mass fraction] 96 % Dr. Claudine Durán Work Phone: 6(631)652-667431 [place] [address] 04-05-2023 08:40-0500 Systolic blood pressure 117 mm[Hg] Dr. Claudine Durán Work Phone: 3(427)122-089231 [place] [address] 04-05-2023 01:48-0500 Body mass index (BMI) [Ratio] 21.5 kg/m2 Dr. Claudine Durán Work Phone: 4(032)077-711831 [place] [address] 04-05-2023 01:48-0500 Body weight 55.[address] Caludine Durán Work Phone: 9(626)754-066990 [place] [address] 04-04-2023 13:52-0500 Body height 160.[address] Claudine Durán Work Phone: 1(671)435-798031 [place] [address] 03-31-2023 20:00-0500 Diastolic blood pressure 50 mm[Hg] Dr. Claudine Durán Work Phone: 3(113)649-870631 [place] [address] 03-31-2023 20:00-0500 Heart rate 77 /min Dr. Claudine Durán Work Phone: 2(856)383-662531 [place] [address] 03-31-2023 20:00-0500 Respiratory rate 17 /min Dr. Claudine Durán Work Phone: 5(319)740-440431 [place] [address] 03-31-2023 20:00-0500 SaO2% (BldA) [Mass fraction] 98 % Dr. Claudine Durán Work Phone: 0(265)603-260931 [place] [address] 03-31-2023 20:00-0500 Systolic blood pressure 108 mm[Hg] Dr. Claudine Durán Work Phone: 4(797)390-184331 [place] [address] 03-31-2023 16:48-0500 Body height 160.[address] Claudine Durán Work Phone: 8(495)190-024931 [place] [address] 03-31-2023 16:48-0500 Body mass index (BMI) [Ratio] 23.4 kg/m2 Dr. Claudine Durán Work Phone: 8(512)682-162531 [place] [address] 03-31-2023 16:48-0500 Body temperature 98.3 [degF] Dr. Claudine Durán Work Phone: 9(062)577-939531 [place] [address] 03-31-2023 16:48-0500 Body weight 60.[address] Claudine Durán Work Phone: 5(363)326-123131 [place] [address] 03-28-2023 20:54-0500 Diastolic blood pressure 79 mm[Hg] Dr. Claudine Durán Work Phone: 6(845)908-302131 [place] [address] 03-28-2023 20:54-0500 Heart rate 91 /min Dr. Claudine Durán Work Phone: 3(010)568-984090 [place] [address] 03-28-2023 20:54-0500 Respiratory rate 19 /min Dr. Claudine Durán Work Phone: 8(894)082-871390 [place] [address] 03-28-2023 20:54-0500 SaO2% (BldA) [Mass fraction] 97 % Dr. Claudine Durán Work Phone: 0(754)184-651990 [place] [address] 03-28-2023 20:54-0500 Systolic blood pressure 121 mm[Hg] Dr. Claudine Durán Work Phone: 2(274)039-864731 [place] [address] 03-28-2023 16:33-0500 Body height 160.[address] Claudine Durán Work Phone: 3(070)198-109831 [place] [address] 03-28-2023 16:33-0500 Body mass index (BMI) [Ratio] 23.7 kg/m2 Dr. Claudine Durán Work Phone: 8(314)058-999731 [place] [address] 03-28-2023 16:33-0500 Body temperature 97.3 [degF] Dr. Claudine Durán Work Phone: 0(548)695-189531 [place] [address] 03-28-2023 16:33-0500 Body weight 60.[address] Claudine Durán Work Phone: 9(720)974-121131 [place] [address] 03-27-2023 13:43-0500 Heart rate 101 /min Dr. Claudine Durán Work Phone: 6(042)868-749690 [place] [address] 03-27-2023 13:43-0500 Respiratory rate 19 /min Dr. Claudine Durán Work Phone: 3(310)679-798590 [place] [address] 03-27-2023 10:00-0500 Body temperature 98.2 [degF] Dr. Claudine Durán Work Phone: 4(743)090-609431 [place] [address] 03-27-2023 10:00-0500 Diastolic blood pressure 63 mm[Hg] Dr. Claudine Durán Work Phone: 1(278)538-675031 [place] [address] 03-27-2023 10:00-0500 SaO2% (BldA) [Mass fraction] 94 % Dr. Claudine Durán Work Phone: [facility] 03-27-2023 10:00-0500 Systolic blood pressure 105 mm[Hg] Dr. Claudine Durán Work Phone: [facility] 03-27-2023 05:41-0500 Body mass index (BMI) [Ratio] 22.6 kg/m2 Dr. Claudine Durán Work Phone: [facility] 03-27-2023 05:41-0500 Body weight 58.[address] Claudine Durán Work Phone: [facility] 03-26-2023 15:00-0500 Diastolic blood pressure 75 mm[Hg] [facility] 03-26-2023 15:00-0500 Heart rate 87 /min [facility] 03-26-2023 15:00-0500 Respiratory rate 19 /min [facility] 03-26-2023 15:00-0500 SaO2% (BldA) [Mass fraction] 95 % [facility] 03-26-2023 15:00-0500 Systolic blood pressure 128 mm[Hg] [facility] 03-26-2023 10:48-0500 Body height 165.1 cm [facility] 03-26-2023 10:48-0500 Body mass index (BMI) [Ratio] 23.3 kg/m2 [facility] 03-26-2023 10:48-0500 Body temperature 97.3 [degF] [facility] 03-26-2023 10:48-0500 Body weight 63.5 kg [facility] 03-19-2023 16:51-0500 Diastolic blood pressure 65 mm[Hg] [facility] 03-19-2023 16:51-0500 Systolic blood pressure 117 mm[Hg] [facility] 03-19-2023 10:07-0500 Body height 165.1 cm [facility] 03-19-2023 10:07-0500 Body mass index (BMI) [Ratio] 20.3 kg/m2 [facility] 03-19-2023 10:07-0500 Body temperature 98.3 [degF] [facility] 03-19-2023 10:07-0500 Body weight 55.48 kg [facility] 03-19-2023 10:07-0500 Heart rate 111 /min [facility] 03-19-2023 10:07-0500 Respiratory rate 16 /min [facility] 03-19-2023 10:07-0500 SaO2% (BldA) [Mass fraction] 100 % [facility] 02-07-2023 10:36-0500 Body temperature 98.6 [degF] Adri Callow DIGITAL COMMUNICATIONS MANAGER.COAT OPERATOR INSULATOR Work Phone: [facility] 02-07-2023 10:36-0500 Body weight 59.69 kg Adri Callow DIGITAL COMMUNICATIONS MANAGER.COAT OPERATOR INSULATOR Work Phone: [facility] 02-07-2023 10:36-0500 Diastolic blood pressure 82 mm[Hg] Adri Callow DIGITAL COMMUNICATIONS MANAGER.COAT OPERATOR INSULATOR Work Phone: [facility] 02-07-2023 10:36-0500 Heart rate 87 /min Adri Callow DIGITAL COMMUNICATIONS MANAGER.COAT OPERATOR INSULATOR Work Phone: [facility] 02-07-2023 10:36-0500 Respiratory rate 18 /min Adri Callow DIGITAL COMMUNICATIONS MANAGER.COAT OPERATOR INSULATOR Work Phone: [facility] 02-07-2023 10:36-0500 SaO2% (BldA) [Mass fraction] 98 % Adri Callow DIGITAL COMMUNICATIONS MANAGER.COAT OPERATOR INSULATOR Work Phone: [facility] 02-07-2023 10:36-0500 Systolic blood pressure 134 mm[Hg] Adri Callow DIGITAL COMMUNICATIONS MANAGER.COAT OPERATOR INSULATOR Work Phone: [facility] 01-04-2023 10:33-0500 Body weight 58.06 kg Jimbo Swanson DIGITAL COMMUNICATIONS MANAGER.AMUSEMENT RIDE OPERATOR Work Phone: [facility] 01-04-2023 10:33-0500 Diastolic blood pressure 75 mm[Hg] Jimbo Swanson DIGITAL COMMUNICATIONS MANAGER.AMUSEMENT RIDE OPERATOR Work Phone: [facility] 01-04-2023 10:33-0500 Heart rate 77 /min Jimbo Swanson DIGITAL COMMUNICATIONS MANAGER.AMUSEMENT RIDE OPERATOR Work Phone: [facility] 01-04-2023 10:33-0500 Respiratory rate 16 /min Jimbo Swanson DIGITAL COMMUNICATIONS MANAGER.AMUSEMENT RIDE OPERATOR Work Phone: [facility] 01-04-2023 10:33-0500 Systolic blood pressure 128 mm[Hg] Jimbo Swanson DIGITAL COMMUNICATIONS MANAGER.AMUSEMENT RIDE OPERATOR Work Phone: [facility] 10-27-2022 09:03-0400 Body weight 59.42 kg Jimbo Swanson DIGITAL COMMUNICATIONS MANAGER.AMUSEMENT RIDE OPERATOR Work Phone: [facility] 10-27-2022 09:03-0400 Diastolic blood pressure 66 mm[Hg] Jimbo Swanson DIGITAL COMMUNICATIONS MANAGER.AMUSEMENT RIDE OPERATOR Work Phone: [facility] 10-27-2022 09:03-0400 Heart rate 76 /min Jimbo Swanson DIGITAL COMMUNICATIONS MANAGER.AMUSEMENT RIDE OPERATOR Work Phone: [facility] 10-27-2022 09:03-0400 Respiratory rate 16 /min Jimbo Swanson DIGITAL COMMUNICATIONS MANAGER.AMUSEMENT RIDE OPERATOR Work Phone: [facility] 10-27-2022 09:03-0400 Systolic blood pressure 119 mm[Hg] Jimbo Swanson DIGITAL COMMUNICATIONS MANAGER.AMUSEMENT RIDE OPERATOR Work Phone: [facility] 08-29-2022 09:26-0400 Body height 162.6 cm Rachelle Schulte APRN.COAT OPERATOR INSULATOR Work Phone: [facility] 08-29-2022 09:26-0400 Body weight 58.51 kg Rachelle Schlute DIGITAL COMMUNICATIONS MANAGER.COAT OPERATOR INSULATOR Work Phone: [facility] 08-29-2022 09:26-0400 Diastolic blood pressure 78 mm[Hg] Rachelle Schulte DIGITAL COMMUNICATIONS MANAGER.COAT OPERATOR INSULATOR Work Phone: [facility] 08-29-2022 09:26-0400 Heart rate 75 /min Rachelle Schulte DIGITAL COMMUNICATIONS MANAGER.COAT OPERATOR INSULATOR Work Phone: [facility] 08-29-2022 09:26-0400 SaO2% (BldA) [Mass fraction] 98 % Rachelle Eris DIGITAL COMMUNICATIONS MANAGER.COAT OPERATOR INSULATOR Work Phone: [facility] 08-29-2022 09:26-0400 Systolic blood pressure 142 mm[Hg] Rachelle Schulte DIGITAL COMMUNICATIONS MANAGER.COAT OPERATOR INSULATOR Work Phone: [facility] 07-20-2022 09:28-0400 Body weight 58.06 kg Florence Collins MD Work Phone: [facility] 07-20-2022 09:28-0400 Diastolic blood pressure 72 mm[Hg] Florence Collins MD Work Phone: [facility] 07-20-2022 09:28-0400 Heart rate 50 /min Florence Collins MD Work Phone: [facility] 07-20-2022 09:28-0400 Respiratory rate 17 /min Florence Collins MD Work Phone: [facility] 07-20-2022 09:28-0400 SaO2% (BldA) [Mass fraction] 100 % Florence Collins MD Work Phone: [facility] 07-20-2022 09:28-0400 Systolic blood pressure 122 mm[Hg] Florence Collins MD Work Phone: [facility] 03-13-2022 10:130500 Body temperature 96.69 [degF] Claudine Durán MD Work Phone: [facility] 03-13-2022 10:130500 Body weight 59.56 kg Claudine Durán MD Work Phone: [facility] 03-13-2022 10:130500 Diastolic blood pressure 68 mm[Hg] Claudine Durán MD Work Phone: [facility] 03-13-2022 10:13-0500 Heart rate 75 /min Claudine Durán MD Work Phone: [facility] 03-13-2022 10:13-0500 Respiratory rate 18 /min Claudine Durán MD Work Phone: [facility] 03-13-2022 10:13-0500 SaO2% (BldA) [Mass fraction] 100 % Claudine Durán MD Work Phone: [facility] 03-13-2022 10:13-0500 Systolic blood pressure 112 mm[Hg] Claudine Durán MD Work Phone: [facility] 11-29-2021 10:07-0400 Body weight 58.51 kg Florence Collins MD Work Phone: [facility] 11-29-2021 10:07-0400 Diastolic blood pressure 76 mm[Hg] Florence Collins MD Work Phone: [facility] 11-29-2021 10:07-0400 Heart rate 92 /min Florence Collins MD Work Phone: [facility] 11-29-2021 10:07-0400 Respiratory rate 18 /min Florence Collins MD Work Phone: [facility] 11-29-2021 10:07-0400 SaO2% (BldA) [Mass fraction] 97 % Florence Collins MD Work Phone: [facility] 11-29-2021 10:07-0400 Systolic blood pressure 122 mm[Hg] Florence Collins MD Work Phone: [facility] 11-10-2021 09:22-0400 Body weight 60.33 kg Jimbo Swanson DIGITAL COMMUNICATIONS MANAGER.AMUSEMENT RIDE OPERATOR Work Phone: [facility] 11-10-2021 09:22-0400 Diastolic blood pressure 80 mm[Hg] Jimbo Swanson DIGITAL COMMUNICATIONS MANAGER.AMUSEMENT RIDE OPERATOR Work Phone: [facility] 11-10-2021 09:22-0400 Heart rate 76 /min Jimbo Swanson DIGITAL COMMUNICATIONS MANAGER.AMUSEMENT RIDE OPERATOR Work Phone: [facility] 11-10-2021 09:22-0400 Respiratory rate 16 /min Jimbo Swanson DIGITAL COMMUNICATIONS MANAGER.AMUSEMENT RIDE OPERATOR Work Phone: [facility] 11-10-2021 09:22-0400 Systolic blood pressure 152 mm[Hg] Jimbo Swanson DIGITAL COMMUNICATIONS MANAGER.AMUSEMENT RIDE OPERATOR Work Phone: [facility] 09-20-2021 13:45-0400 Body weight 58.51 kg Jimbo Swanson DIGITAL COMMUNICATIONS MANAGER.AMUSEMENT RIDE OPERATOR Work Phone: [facility] 09-20-2021 13:45-0400 Diastolic blood pressure 64 mm[Hg] Jimbo Swanson DIGITAL COMMUNICATIONS MANAGER.AMUSEMENT RIDE OPERATOR Work Phone: [facility] 09-20-2021 13:45-0400 Heart rate 85 /min Jimbo Swanson DIGITAL COMMUNICATIONS MANAGER.AMUSEMENT RIDE OPERATOR Work Phone: [facility] 09-20-2021 13:45-0400 SaO2% (BldA) [Mass fraction] 96 % Jimbo Swanson DIGITAL COMMUNICATIONS MANAGER.AMUSEMENT RIDE OPERATOR Work Phone: [facility] 09-20-2021 13:45-0400 Systolic blood pressure 128 mm[Hg] Jimbo Swanson DIGITAL COMMUNICATIONS MANAGER.AMUSEMENT RIDE OPERATOR Work Phone: [facility] 08-12-2021 11:01-0400 Body height 162.6 cm William Messina DO Work Phone: [facility] 08-12-2021 11:01-0400 Body weight 59.42 kg Williamradhika Messina DO Work Phone: [facility] 08-12-2021 11:01-0400 Diastolic blood pressure 74 mm[Hg] William Messina DO Work Phone: [facility] 08-12-2021 11:01-0400 Heart rate 72 /min William Messina DO Work Phone: [facility] 08-12-2021 11:01-0400 SaO2% (BldA) [Mass fraction] 99 % Williamradhika Messina DO Work Phone: [facility] 08-12-2021 11:01-0400 Systolic blood pressure 130 mm[Hg] William Siddharth DO Work Phone: [facility] 07-11-2021 08:10-0400 Body weight 58.06 kg Claudine Durán MD Work Phone: [facility] 07-11-2021 08:10-0400 Diastolic blood pressure 74 mm[Hg] Claudine Durán MD Work Phone: [facility] 07-11-2021 08:10-0400 Heart rate 76 /min Claudine Durán MD Work Phone: [facility] 07-11-2021 08:10-0400 Systolic blood pressure 122 mm[Hg] Claudine Durán MD Work Phone: [facility] 2021 14:57-0400 Body height 162.6 cm Mirian Andujar MD Work Phone: [facility] 2021 14:57-0400 Body weight 58.33 kg Mirian Andujar MD Work Phone: [facility] 2021 14:57-0400 Diastolic blood pressure 67 mm[Hg] Mirian Andujar MD Work Phone: [facility] 2021 14:57-0400 Heart rate 98 /min Mirian Andujar MD Work Phone: [facility] 2021 14:57-0400 Respiratory rate 14 /min Mirian Andujar MD Work Phone: [facility] 2021 14:57-0400 SaO2% (BldA) [Mass fraction] 99 % Mirian Andujar MD Work Phone: [facility] 2021 14:57-0400 Systolic blood pressure 144 mm[Hg] Mirian Andujar MD Work Phone: [facility] 03-14-2021 08:08-0500 Body height 162.6 cm Claudine Durán MD Work Phone: [facility] 03-14-2021 08:08-0500 Body temperature 97.5 [degF] Claudine Durán MD Work Phone: [facility] 03-14-2021 08:08-0500 Body weight 58.06 kg Claudine Durán MD Work Phone: [facility] 03-14-2021 08:08-0500 Diastolic blood pressure 62 mm[Hg] Claudine Durán MD Work Phone: [facility] 03-14-2021 08:08-0500 Heart rate 87 /min Claudine Durán MD Work Phone: [facility] 03-14-2021 08:08-0500 Respiratory rate 14 /min Claudine Durán MD Work Phone: [facility] 03-14-2021 08:08-0500 SaO2% (BldA) [Mass fraction] 99 % Claudine Durán MD Work Phone: [facility] 03-14-2021 08:08-0500 Systolic blood pressure 118 mm[Hg] Claudine Durán MD Work Phone: [facility] Encounters Encounter Date Encounter Type Care [...] Start: 10-24-2024 End: 10-24-2024 ambulatory CLAUDINE DURÁN Facility:[facility] Start: 10-23-2024 End: 10-24-2024 Telephone encounter Claudine Durán MD Work Phone: Internal Medicine [place] Comment on above: Orders Start: 10-19-2024 End: 10-19-2024 Telephone encounter Russ Velasquez DO Work Phone: Family Medicine [facility] Start: 10-19-2024 End: 10-19-2024 Dr. Claudine Durán MD Work Phone: -Emergency Department Work Phone: Start: 10-19-2024 End: 10-19-2024 Emergency department patient visit Dr. Claudine Durán MD Work Phone: -Emergency Department Start: 10-16-2024 End: 10-16-2024 Telephone encounter Jimbo Swanson APRN.CNS Work Phone: Internal Medicine [place] Comment on above: home health calling Start: 10-16-2024 ambulatory Zaynab elmore OLS Facility:[facility] Start: 10-16-2024 Zaynab Roque Start: 10-14-2024 End: 10-14-[address] Claudine Durán MD Work Phone: -[facility] Start: 10-14-2024 End: 10-14-2024 Fadia CORRIGAN -[facility] Work Phone: Start: 10-13-2024 ambulatory Zaynab elmore OLS Facility:[facility] Start: 10-13-2024 Zaynab Garcia L - Mya Start: 10-09-2024 ambulatory Efelmerongjoesph elmore OLS Facility:[facility] Start: 10-09-2024 Zaynab Rees - Mya Start: 10-07-2024 ambulatory Efelmerongbe Santana elmore OLS Facility:[facility] Start: 10-07-2024 Zaynab RIBEIRO L Jose Roque Start: 10-06-2024 ambulatory Eflemerongjoesph elmore OLS Facility:[facility] Start: 10-06-2024 Zaynab RIBEIRO L [facility] [employer] Start: 10-02-2024 ambulatory Efewongjoesph elmore OLS Facility:[facility] Start: 10-02-2024 Registered Referred Zaynab RIBEIROL Jose Roque Start: 10-02-2024 Zaynab RIBEIRO L Jose Roque Start: 09-30-2024 End: 09-30-[address] Claudine Durán MD Work Phone: 6(254)126-4[address] [place] [address] Start: 09-30-2024 End: 09-30-2024 Dr. Zaynab Pina MD -[facility] Work Phone: Start: 09-29-2024 ambulatory Zaynab elmore OLS Facility:[facility] Start: 09-29-2024 [facility]: 09-29-[facility]24 ambulatory Claudine Adam Tariqlayne Facilit y:[facility] Start: 09-25-2024 ambulatory Zaynab elmore OLS Facility:[facility] Start: 09-25-2024 Registered Referred Zaynab GarciaCabrera Roque Start: 09-25-2024 Zaynab Garcia Cabrera Roque Start: 09-22-2024 ambulatory Zaynab elmore OLS Facility:[facility] Start: 09-22-2024 Registered Referred Zaynab GarciaCabrera Roque Start: 09-22-2024 Zaynab Garcia Cabrera Roque Start: 09-18-2024 ambulatory Christineelmershala elmore OLS Facility:[facility] Start: 09-18-2024 Registered Referred Zaynab GarciaCabrera Roque Start: 09-18-2024 Zaynab Garcia Cabrera Roque Start: 09-15-2024 ambulatory Christineelmertanjoesph Santana elmore OLS Facility:[facility] Start: 09-15-2024 Registered Referred Zaynab GarciaCabrera Roque Start: 09-15-2024 Zaynab Garcia Cabrera Roque Start: 09-11-2024 ambulatory Christineamilcar Cherryfeliberto elmore OLS Facility:[facility] Start: 09-11-2024 Registered Referred Zaynab GarciaCabrera Roque Start: 09-11-2024 Zaynab Garcia Cabrera Roque Start: 09-08-2024 ambulatory Zaynab elmore OLS Facility:[facility] Start: 09-08-2024 Registered Referred Zaynab Roque Start: 09-08-2024 Zaynab Roque Start: 09-04-2024 ambulatory Zaynab elmore OLS Facility:[facility] Start: 09-04-2024 Registered Referred Zaynab Roque Start: 09-04-2024 Zaynab Roque Start: 09-02-2024 End: 09-02-[address] Claudine Durán MD Work Phone: [facility] Start: 09-02-2024 End: 09-02-[address] Zaynab Pina MD -[facility] Work Phone: Start: 09-02-2024 End: 09-02-2024 Dr. Zaynab Pina MD -[facility] Work Phone: Start: 09-01-2024 ambulatory Zaynab elmore OLS Facility:[facility] Start: 09-01-2024 Registered Referred Zaynab Roque Start: 09-01-2024 Zaynab Garcia Cabrera Roque Start: 08-28-2024 End: 08-28-2024 Patient encounter procedure Fadia Pizarro [facility] Work Phone: Start: 08-28-2024 End: 08-28-[address] Claudine Durán MD Work Phone: [facility] Start: 08-28-2024 Registered Referred Zaynab Roque Start: 08-28-2024 End: 08-28-2024 Fadia Pizarro [facility] Work Phone: Start: 08-27-2024 Non-patient / Non-[facility] Work Phone: Start: 08-27-[address] [facility] Work Phone: Start: 08-26-2024 Non-patient / Non-visit Dr. Yaima Chan [facility] Work Phone: Start: 08-26-[address] [facility] Work Phone: Start: 08-25-2024 Non-patient / Non-visit Dr. Yaima Chan [facility] Work Phone: Start: 08-25-[address] [facility] Work Phone: Start: 08-24-2024 Non-patient / Non-visit Dr. Edouard House MD [facility] Work Phone: Start: 08-24-2024 Dr. Erasmo [facility] and -[facility] Work Phone: Start: 08-23-2024 End: 08-27-2024 ambulatory Burak Vasiliy Facility:[facility] Start: 08-23-2024 End: 08-27-2024 Evaluation and management of inpatient Dr. Erasmo House MD [facility] Work Phone: Start: 08-23-2024 End: 08-27-[address] Claudine Durán MD Work Phone: [facility] Start: 08-23-2024 End: 08-27-2024 Dr. Jasmyn Chan DO [facility] Work Phone: Start: 08-21-2024 End: 08-21-2024 Anticoagulant drug monitoring [facility] Work Phone: [facility] Comment on above: Personal history of DVT (deep vein thrombosis) (Primary Dx) Start: 08-21-2024 End: 08-21-2024 ambulatory CLAUDINE DURÁN Facility:[facility] Start: 08-20-2024 End: 09-18-2024 Discharged Recurring [...] Start: 08-06-2024 End: 08-06-2024 Anticoagulant drug monitoring [facility] Work Phone: [facility] [place] Comment on above: Personal history of DVT (deep vein thrombosis) (Primary Dx) Start: 08-06-2024 End: 08-06-2024 ambulatory CLAUDINE DURÁN Facility:[facility] Start: 07-29-2024 End: 07-29-2024 ambulatory Jane Rick RN Work Phone: [employer] [facility] Start: 07-29-2024 End: 07-29-2024 Coordination of care plan Jane Rick RN Work Phone: [employer] [facility] Comment on above: Care Coordination (José Miguel gaston review and outreach for CHF GDMT Care Path/) Start: 07-23-2024 End: 07-23-2024 ambulatory Brissa Chester SYDNEY Work Phone: Cardiology Comment on above: ECHO and LAB RESULTS Start: 07-23-2024 End: 07-23-2024 E-mail encounter from caregiver Brissa Chester APRLONI Work Phone: Cardiology Start: 07-22-2024 End: 07-22-2024 ambulatory CLAUDINE DURÁN Facility:[facility] Start: 07-22-2024 End: 07-22-2024 Patient encounter procedure Brissa Chester CONNIE.SANTY Work Phone: Cardiology Comment on above: S/P TAVR (transcathe ter aortic valve replacement) (Primary Dx); Nonrheumatic aortic valve stenosis; Nonrheumatic mitral valve stenosis; Nonrheumatic tricuspid valve regurgitation; Essential hypertension; Disseminated histoplasmosis; History of recurrent deep vein thrombosis (DVT); History of GI bleed; History of COPD Start: 07-22-2024 End: 07-22-2024 ambulatory CLAUDINE DURÁN Facility:[facility] Start: 07-21-2024 End: 07-21-2024 Anticoagulant drug monitoring [facility] Work Phone: [facility] [place] Comment on above: Personal history of DVT (deep vein thrombosis) (Primary Dx) Start: 07-21-2024 End: 07-21-2024 ambulatory CLAUDINE DURÁN Facility:[facility] Start: 07-18-2024 End: 07-19-[address] Claudine Durán MD Work Phone: [facility] Work Phone: Start: 07-18-2024 End: 07-19-[address] Claudine Durán MD Work Phone: -Cardiac Rehab Work Phone: Start: 07-18-2024 End: 07-19-2024 Dr. Claudine Durán MD Work Phone: -Cardiac Rehab Work Phone: Start: 07-08-2024 End: 07-08-2024 ambulatory CLAUDINE Adam MARINELLIAMPLAYNE Facility:[facility] Start: 07-07-2024 End: 07-08-2024 [facility] Work [facility]: [facility] [place] Comment on above: Personal history of DVT (deep vein thrombosis) (Primary Dx) Refill Request Start: 07-07-2024 End: 07-07-2024 ambulatory CLAUDINE Adam DURÁN Facility:[facility] Start: 07-02-2024 End: 07-02-2024 Refill Jimbo Swanson APRN.CNS Work Phone: [facility] [place] Comment on above: Refill Request Start: 06-25-2024 End: 06-25-2024 ambulatory Pili Benitez RN [employer] [facility] Comment on above: Bi-Weekly Outreach ( Recurring) for Chronic Disease Management Start: 06-21-2024 End: 06-21-2024 Refill Claudine Durán MD Work Phone: [facility] [place] Comment on above: Refill Request Start: 06-20-2024 End: 06-20-[address] Diaz Puckett MD -[facility] Work Phone: Start: 06-20-2024 End: 06-23-2024 Refill Florence Collins MD Work Phone: Pulmonary Medicine Comment on above: Refill Request Start: 06-18-2024 End: 06-18-2024 ambulatory Claudine Durán Facility:[facility] Start: 06-18-2024 End: 06-18-[address] Claudine Durán MD Work Phone: -Cardiac Rehab Work Phone: Start: 06-16-2024 End: 06-16-2024 ambulatory GENO HART Facility:[facility] Start: 06-11-2024 End: 06-11-2024 ambulatory CLAUDINE Adam DURÁN Facility:[facility] Start: [address] Claudine Durán MD Work Phone: -Cardiac Rehab Work Phone: Start: 05-28-2024 End: 05-28-[address] Claudine Durán MD Work Phone: [facility] Work Phone: Start: 05-28-2024 End: 05-28-[address] Claudine Durán MD Work Phone: -Cardiac Rehab Work Phone: Start: 05-28-2024 End: 05-28-2024 ambulatory Claudine Durán Facility:[facility] Start: 05-26-2024 End: 05-26-2024 Patient Outreach Pili Benitez RN [employer] [facility] Comment on above: Transition Of Care W romelkly phone contact (Recurring) for Transitional Care Management Start: 05-21-2024 End: 05-22-2024 Telephone encounter Jimbo Swanson APRN.AMUSEMENT RIDE OPERATOR Work Phone: [facility] [place] Comment on above: Consult Start: 05-20-2024 End: 05-20-2024 Patient encounter procedure Jimbo Swanson APRN.AMUSEMENT RIDE OPERATOR Work Phone: [facility] [place] Comment on above: Medicare annual well ness visit, subsequent (Primary Dx); Cough due to bronchospasm; Rheumatoid arthritis involving multiple sites with positive rheumatoid factor (HCC); Low back pain with right-sided sciatica, unspecified back pain laterality, unspecified chronicity; Chronic heart failure with preserved ejection fraction (HFpEF) ([facility]); Nonrheumatic aortic valve stenosis; S/P TAVR (transcatheter aortic valve replacement) Start: 05-20-2024 End: 05-20-2024 ambulatory JIMBO SWANSON Facility:[facility] Start: 05-20-2024 End: 05-20-2024 Anticoagulant drug monitoring [facility] Work Phone: [facility] [place] Comment on above: Personal history of DVT (deep vein thrombosis) (Primary Dx) Start: 05-19-2024 End: 05-19-2024 Patient Outreach Pili Benitez RN [employer] [facility] Comment on above: Transition Of Care W eekly phone contact (Recurring) for Transitional Care Management, Started Bi-Weekly Outreach (Recurring) for Chronic Disease Management Start: 05-12-2024 End: 05-12-2024 Patient Outreach Pili Benitez RN [employer] [facility] Comment on above: Transition Of Care W eekly phone contact (Recurring) for Transitional Care Management Start: 05-09-2024 End: 05-12-2024 Follow-up encounter Jimbo Swanson DIGITAL COMMUNICATIONS MANAGER.AMUSEMENT RIDE OPERATOR Work Phone: [facility] [place] Comment on above: Anticoagulation Start: 05-09-2024 End: 05-09-2024 ambulatory JIMBO SWANSON Facility:[facility] Start: 05-05-2024 End: 05-05-2024 Patient Outreach Pili Benitez RN [employer] [facility] Comment on above: Transition Of Care [...] Evaluation and management of inpatient JUVENCIO SAEED Facility:[facility] Start: 05-01-2024 End: 05-01-2024 ambulatory CLAUDINE DURÁN Facility:[facility] Start: 05-01-2024 End: 05-01-2024 Anticoagulant drug monitoring [facility] Work Phone: [facility] [place] Comment on above: Personal history of DVT (deep vein thrombosis) (Primary Dx) Start: 04-30-2024 End: 04-30-2024 Admission to same day surgery center Anesthesia Clearance Work Phone: [facility] Work Phone: Start: 04-30-2024 End: 04-30-2024 ambulatory [facility] Facility:[facility] Start: 04-30-2024 End: 04-30-2024 Patient encounter [...] Start: 04-30-2024 End: 04-30-2024 ambulatory LEANDRA VENEGAS Facility:[facility] Start: 04-21-2024 End: 04-21-2024 ambulatory GENO HART Facility:[facility] Start: 04-21-2024 End: 04-21-2024 Patient encounter procedure Geno Hart MD Work Phone: [facility] of Infectious Disease Comment on above: Disseminated histopl asmosis (Primary Dx); Bronchiectasis without complication (HCC); COPD without exacerbation (HCC); Rheumatoid arthritis with positive rheumatoid factor, involving unspecified site (HCC); History of immunosuppressive therapy; History of penicillin allergy; Encounter for long-term (current) use of antibiotics; Counseling, unspecified Start: 04-16-2024 End: 04-16-2024 ambulatory Leandra Venegas DIGITAL COMMUNICATIONS MANAGER.AMUSEMENT RIDE OPERATOR Work Phone: Cardiology Comment on above: Structural Dental Cl earance Start: 04-15-2024 End: 04-15-2024 ambulatory Leandra Venegas DIGITAL COMMUNICATIONS MANAGER.AMUSEMENT RIDE OPERATOR Work Phone: Cardiology Start: 04-15-2024 End: 04-15-2024 Telephone encounter Soni Held DIGITAL COMMUNICATIONS MANAGER.AMUSEMENT RIDE OPERATOR Work Phone: Cardiology Comment on above: Appointment (TAVR sc heduling) Start: 04-14-2024 End: 04-14-2024 ambulatory Pili Benitez RN [employer] [facility] Comment on above: Initial enrollment o isabel for Chronic Disease Management Start: 04-05-2024 End: 04-05-2024 ambulatory Juvencio Saeed MD Work Phone: Cardiology Start: 04-03-2024 End: 04-03-2024 ambulatory CLAUDINE DURÁN Facility:[facility] Start: 04-03-2024 End: 04-03-2024 [facility] Work [facility]: [facility] Comment [...] 03-31-2024 End: 03-31-2024 ambulatory Yuparish Torres MA [facility] Comment on above: TAVR Meeting Start: 03-31-2024 End: 03-31-2024 E-mail encounter from caregiver Yu Brian DELGADO [facility] Start: 03-31-2024 End: 03-31-2024 Patient encounter procedure Yu Brian DELGADO [facility] Comment on above: [facility] ([employer] High Risk - Attempt 3) Start: 03-26-2024 End: 03-26-2024 ambulatory Yu Torres MA [facility] Start: 03-26-2024 End: 03-26-2024 Patient encounter procedure Yu Torres MA [facility] Comment on above: Population Health Na vigation [...] Start: 03-24-2024 End: 03-25-2024 ambulatory MICHAEL BEAVERS Facility:[facility] Start: 03-23-2024 End: 03-23-2024 Telephone encounter Michael Beavers MD Work Phone: Cardiology Comment on above: Patient Education Start: 03-21-2024 Encounter for preprocedural cardiovascular examination CLAUDINE DURÁN [facility] Start: 03-21-2024 End: 03-21-2024 Subsequent hospital visit by physician Xr Chest Main J1 Work Phone: Radiology Comment on above: Nonrheumatic aortic valve stenosis [I35.0] Start: 03-21-2024 End: 03-21-2024 ambulatory Yu Torres MA [facility] Start: 03-21-2024 End: 03-21-2024 Patient encounter procedure [...] encounter status Juvencio Saeed MD Work Phone: [facility] Start: 02-29-2024 End: 02-29-2024 Office outpatient visit 15 minutes Claudine Durán MD Work Phone: [facility] [place] Comment on above: Chronic heart failur e with preserved ejection fraction (HFpEF) (HCC) (Primary Dx); Rheumatoid arthritis with positive rheumatoid factor, involving unspecified site (HCC); COPD without exacerbation (HCC); Bronchiectasis without complication (HCC); Nonrheumatic aortic valve stenosis; Screening for depression; Encounter for screening examination for other mental health and behavioral disorders Start: 02-29-2024 End: 02-29-2024 Anticoagulant drug monitoring [facility] Work Phone: [facility] Comment on above: Personal history of DVT (deep vein thrombosis) (Primary Dx) Start: 02-29-2024 End: 02-29-2024 [facility] Start: 02-20-2024 End: 02-21-2024 Refill Geno Hart MD Work Phone: [facility] Department of Infectious Disease Comment on above: Refill Request Start: 01-31-2024 End: 01-31-2024 ambulatory CLAUDINE Adam [facility] Facility:[facility] Start: 01-31-2024 End: 01-31-2024 Anticoagulant drug monitoring [facility] Work Phone: [facility] [place] Comment on above: Personal history of DVT (deep vein thrombosis) (Primary Dx) Start: 01-29-2024 End: 01-29-2024 ambulatory Ilda Miller RN Work Phone: [employer] [facility] Comment on above: Community Monitoring Outreach (2nd attempt Telephonic Outreach [facility] Home Monitoring) Start: 01-21-2024 End: 01-21-2024 ambulatory Ilda Miller RN Work Phone: [employer] [facility] Comment on above: Community Monitoring Outreach (Telephonic Outreach CD[facility] Home Monitoring) Start: 01-18-2024 End: 01-18-2024 ambulatory BIBI Maria E ALEGRIA Facility:[facility] Start: 01-10-2024 End: 01-10-2024 ambulatory [facility] Start: 01-10-2024 End: 01-10-2024 Anticoagulant drug monitoring [facility] Work Phone: [facility] [place] Comment on above: Personal history of DVT (deep vein thrombosis) (Primary Dx) Start: 01-08-2024 End: 01-08-2024 ambulatory Monica Aguila APRN.COAT OPERATOR INSULATOR Work Phone: Cardiology Start: 01-08-2024 End: 01-08-2024 Patient encounter procedure Monica Aguila DIGITAL COMMUNICATIONS MANAGER.COAT OPERATOR INSULATOR Work Phone: Cardiology Comment on above: TAVR Consult Start: 01-08-2024 End: 01-08-2024 Patient encounter status Monica NewmanJoseMarshall DIGITAL COMMUNICATIONS MANAGER.COAT OPERATOR INSULATOR Work Phone: [facility] Start: 01-04-2024 End: 01-04-2024 Telephone encounter Geno Hart MD Work Phone: [facility] Comment on above: Results Start: 01-02-2024 End: 01-02-2024 Patient encounter procedure Lili Roche MD Work Phone: Cardiology Comment on above: Rheumatoid arthritis with positive rheumatoid factor, involving unspecified site (HCC) (Primary Dx); Nonrheumatic aortic valve stenosis; Nonrheumatic mitral valve stenosis; Pericardial effusion; Histoplasmosis Start: 01-02-2024 End: 01-02-2024 ambulatory LILI ROCHE Facility:[facility] Start: 12-27-2023 End: 12-27-2023 ambulatory CLAUDINE DURÁN Facility:[facility] Start: 12-27-2023 End: 12-27-2023 Anticoagulant drug monitoring [facility] Work Phone: [facility] [place] Comment on above: Personal history of DVT (deep vein thrombosis) (Primary Dx) Start: 12-20-2023 End: 12-20-2023 ambulatory Rosa Wallace RN Work Phone: [employer] [facility] Comment on above: community monitoring outreach (engagement) Start: 12-19-2023 End: 12-20-2023 Telephone encounter Claudine Durán MD Work Phone: [facility] [place] Start: 12-19-2023 End: 12-19-2023 ambulatory Rosa Wallace RN Work Phone: [employer] [facility] Comment on above: community monitoring outreach (engagement) Start: 12-18-2023 End: 12-18-2023 ambulatory GENO HART Facility:[facility] Start: 12-18-2023 End: 12-18-2023 Patient encounter procedure Geno Hart MD Work Phone: [facility] Department of Infectious Disease Comment on above: Disseminated histopl asmosis (Primary Dx); Bronchiectasis without complication (HCC); COPD without exacerbation (HCC); Rheumatoid arthritis with positive rheumatoid factor, involving unspecified site (HCC); History of immunosuppressive therapy; History of penicillin allergy; Encounter for long-term (current) use of antibiotics; Counseling, unspecified; Disseminated histoplasmosis Start: 12-13-2023 End: 12-13-2023 ambulatory [facility] Start: 12-13-2023 End: 12-13-2023 Anticoagulant drug monitoring [facility] Work Phone: [facility] [place] Comment on above: Personal history of DVT (deep vein thrombosis) (Primary Dx) Start: 12-11-2023 End: 12-12-2023 Refill Twyla Cuevas APRN.CNP Work Phone: [facility] [place] Comment on above: Refill Request Start: 12-09-2023 End: 12-11-2023 Refill Claudine Durán MD Work Phone: [facility] [place] Comment on above: Refill Request Start: 11-29-2023 End: 11-29-2023 ambulatory [facility] Adam [facility] Facility:[facility] Start: 11-29-2023 End: 11-29-2023 Anticoagulant drug monitoring [facility] Work Phone: [facility] [place] Comment on above: Personal history of DVT (deep vein thrombosis) (Primary Dx) Start: 11-26-2023 End: 11-26-2023 Telephone encounter Geno Hart MD Work Phone: [facility] of Infectious Disease Comment on above: Patient Question Start: 11-15-2023 End: 11-15-2023 Telephone encounter Claudine Durán MD Work Phone: [facility] [place] Comment on above: Orders (poc protime) Start: 11-15-2023 End: 11-15-2023 [facility] Adam [facility] Facility:[facility] Start: 11-15-2023 End: 11-15-2023 Anticoagulant drug monitoring [facility] Work Phone: [facility] [place] Comment on above: Personal history of DVT (deep vein thrombosis) (Primary Dx) Start: 11-08-2023 End: 11-08-2023 ambulatory CLAUDINE TARIQLAYNE Facility:[facility] Start: 11-08-2023 End: 11-08-[address] [facility]: [facility] [place] Comment on above: Personal history of DVT (deep vein thrombosis) (Primary Dx) Start: 11-03-2023 End: 11-06-2023 Refill Jimbo Swanson APRN.AMUSEMENT RIDE OPERATOR Work Phone: [facility] [place] Comment on above: Refill Request Start: 11-02-2023 End: 11-02-2023 E-mail encounter from caregiver Bibi Alegria APRN.COAT OPERATOR INSULATOR Work Phone: Cardiology Start: 11-02-2023 End: 11-02-2023 Follow-up encounter Bibi Alegria APRN.COAT OPERATOR INSULATOR Work Phone: Cardiology Comment on above: Valve Follow Up Start: 10-30-2023 End: 10-30-2023 Telephone encounter William Aguilar Siddharth GAYLE Work Phone: Cardiology Comment on above: Forms Start: 10-25-2023 End: 10-25-[address] [facility] Work [facility]: [facility] [place] Comment on above: Personal history of DVT (deep vein thrombosis) (Primary Dx) Start: 10-20-2023 End: 10-25-2023 Refill Jimbo Swanson APRN.AMUSEMENT RIDE OPERATOR Work Phone: [facility] [place] Comment on above: Refill Request Start: 10-19-2023 End: 10-19-2023 Anticoagulant drug monitoring [facility] Work Phone: [facility] [place] Comment on above: Personal history of DVT (deep vein thrombosis) (Primary Dx) Start: 10-18-2023 End: 10-18-2023 Patient encounter procedure Bibi Alegria APRN.COAT OPERATOR INSULATOR Work Phone: Cardiology Comment on above: Aortic stenosis with bicuspid valve (Primary Dx); Pericardial effusion; Essential hypertension; Chronic heart failure with preserved ejection fraction (HFpEF) ([facility]); Mitral valve stenosis, non-rheumatic; Nonrheumatic tricuspid valve regurgitation Start: 10-17-2023 End: 10-17-2023 ambulatory Ilda Miller RN Work Phone: [employer] [facility] [employer] Comment on above: Community Monitoring Outreach [...] Start: 09-27-2023 End: 09-27-2023 Anticoagulant drug monitoring [facility] Work Phone: [facility] [place] Comment on above: Personal history of DVT (deep vein thrombosis) (Primary Dx) Refill Request Start: 09-27-2023 Refill Twyla Cuevas APRN.COAT OPERATOR INSULATOR Work Phone: [facility] [place] Comment on above: Med Change Request Start: 09-21-2023 End: 09-21-2023 Anticoagulant drug monitoring [facility] Work Phone: [facility] [place] Comment on above: Personal history of DVT (deep vein thrombosis) (Primary Dx) Start: 09-04-2023 Telephone encounter Twyla de APRN.COAT OPERATOR INSULATOR Work Phone: [facility] [place] Comment on above: Results Start: 08-31-2023 ambulatory Ilda Miller RN Work Phone: [employer] Comment on above: Community Monitoring Outreach (F/U engagement [facility] Home Monitoring) Start: 08-30-2023 End: 08-30-2023 Anticoagulant drug monitoring [facility] Work Phone: [facility] [place] Comment on above: Personal history of DVT (deep vein thrombosis) (Primary Dx) Refill Request Start: 08-30-2023 End: 08-30-2023 Subsequent hospital visit by physician [facility] (I-Stat) Work Phone: [facility] Comment on above: Disseminated histopl asmosis [B39.9] Start: 08-28-2023 End: 08-28-2023 Patient encounter procedure Geno Hart MD Work Phone: [facility] Department of Infectious Disease Comment on above: [...] Essential hypertension; Pericardial effusion (noninflammatory); Leg edema; intermediate designer 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 Work [facility]: [facility] [place] Comment on above: Personal history of DVT (deep vein thrombosis) (Primary Dx) Start: 08-08-2023 End: 08-08-2023 Patient encounter procedure Twyla Cuevas APRN.COAT OPERATOR INSULATOR Work Phone: [facility] [place] Comment on above: Rheumatoid arthritis involving multiple sites with positive rheumatoid factor (HCC) (Primary Dx); Edema, unspecified type; Encounter for therapeutic drug monitoring Start: 08-07-2023 Refill Claudine tavares MD Work Phone: [facility] [place] Comment on above: Refill Request Start: 07-31-2023 Refill Claudine tavares MD Work Phone: [facility] [place] Comment on above: Refill Request Start: 07-28-2023 Refill Jimbo Swanson APRN.AMUSEMENT RIDE OPERATOR Work Phone: [facility] [place] Comment on above: Refill Request Start: 07-26-2023 End: 07-26-[address] [facility] Work [facility]: [facility] [place] Comment on above: intermediate designer current us e of anticoagulant therapy (Primary Dx) Start: 07-20-2023 Telephone encounter Claudine valderrama MD Work Phone: [facility] [place] Comment on above: Medication Problem Start: 07-17-2023 Refill Claudine tavares MD Work Phone: [facility] [place] Comment on above: Refill Request Right knee pain, uns pecified chronicity (Primary Dx) Start: 07-12-2023 Telephone encounter Jimbo sanchez APRN.AMUSEMENT RIDE OPERATOR Work Phone: [facility] [place] Comment on above: Results Start: 07-12-2023 End: 07-12-[address] [facility] Work Phone: [facility]in [facility] [place] Comment on above: Personal history of DVT (deep vein thrombosis) (Primary Dx) Start: 07-10-2023 End: 07-10-2023 Office outpatient visit 25 minutes Jimbo Swanson APRN.AMUSEMENT RIDE OPERATOR Work Phone: [facility] [place] Comment on above: Acute pain of right knee (Primary Dx); Chronic anticoagulation; Hip pain, acute, left; Pain and swelling of right lower leg Start: 07-05-2023 ambulatory Ilda Miller RN Work Phone: [employer] Comment on above: Community Monitoring Outreach (F/U engagement CD Home Monitoring) Start: 07-05-2023 End: 07-05-2023 Anticoagulant drug monitoring [facility] Work Phone: [facility] [place] Comment on above: Personal history of DVT (deep vein thrombosis) (Primary Dx) Start: 07-01-2023 Refill Twyla Cuevas APRN.COAT OPERATOR INSULATOR Work Phone: [facility] [place] Comment on above: Refill Request Start: 06-07-2023 Refill Claudine tavares MD Work Phone: [address] [place] [address] Comment on above: Refill Request Start: 06-05-2023 End: 06-05-2023 Office outpatient visit 40 minutes Claudine Durán MD Work Phone: [facility] [place] Comment on above: Anemia, unspecified type (Primary Dx); Elevated LFTs; COPD without exacerbation (HCC); Essential hypertension; Cough due to bronchospasm; Chronic anticoagulation; Encounter for long-term current use of medication; Gastric ulcer with hemorrhage, unspecified chronicity Start: 05-31-2023 End: 05-31-[address] Claudine Durán Work Phone: [facility] Work Phone: Start: 05-31-2023 End: 05-31-2023 Dr. Claudine Durán Work Phone: [facility] Start: 05-29-2023 End: 05-29-[address] Claudine Durán Work Phone: [facility] Work Phone: Start: 05-29-2023 End: 05-29-2023 Dr. Claudine Durán Work Phone: [facility] Start: 05-28-2023 End: 05-28-[address] Claudine Durán Work Phone: [facility] Work Phone: Start: 05-28-2023 End: 05-28-2023 Dr. Claudine Durán Work Phone: [facility] Start: 05-24-2023 End: 05-24-[address] Claudine Durán Work Phone: [facility] Work Phone: Start: 05-24-2023 End: 05-24-2023 Dr. Claudine Durán Work Phone: [facility] Start: 05-21-2023 End: 05-21-[address] Claudine Durán Work Phone: [facility] Work Phone: Start: 05-21-2023 End: 05-21-2023 Dr. Claudine Durán Work Phone: [facility] Start: 05-17-2023 End: 05-17-[address] Claudine Durán Work Phone: [facility] Work Phone: Start: 05-17-2023 End: 05-17-2023 Dr. Claudine Durán Work Phone: [facility] Start: 05-15-2023 End: 05-15-[address] Claudine Durán Work Phone: [facility] Work Phone: Start: 05-15-2023 End: 05-15-2023 Dr. Claudine Durán Work Phone: [facility] Start: 05-14-2023 End: 05-14-[address] Claudine Durán Work Phone: [facility] Work Phone: Start: 05-14-[address] Claudine hurt Work Phone: [facility] Start: 05-14-2023 End: 05-14-2023 Dr. Claudine Durán Work Phone: [facility] Start: 05-10-2023 End: 05-10-[address] Claudine Durán Work Phone: [facility] Work Phone: Start: 05-10-[address] Claudine hurt Work Phone: [facility] Start: 05-10-2023 End: 05-10-2023 Dr. Claudine Durán Work Phone: [facility] Start: 05-07-2023 End: 05-07-[address] Claudine Durán Work Phone: [facility] Work Phone: Start: 05-07-2023 End: 05-07-[address] Claudine Durán Work Phone: [facility] Start: 05-07-2023 End: 05-07-2023 Dr. Claudine Durán Work Phone: [facility] Start: 05-03-2023 End: 05-03-[address] Claudine Durán Work Phone: [facility] Work Phone: Start: 05-03-[address] Claudine hurt Work Phone: [facility] Start: 05-03-2023 End: 05-03-2023 Dr. Claudine Durán Work Phone: [facility] Start: 05-01-2023 End: 05-01-2023 Dr. Claudine Durán Work Phone: [facility] Work Phone: Start: 05-01-2023 End: 05-01-[address] Claudine Durán Work Phone: [facility] Work Phone: Start: 05-01-2023 End: 05-01-[address] Claudine Durán Work Phone: [facility] Start: 05-01-[address] Claudine hurt Work Phone: [facility] Start: 05-01-2023 End: 05-01-2023 Dr. Claudine Durán Work Phone: [facility] Start: 04-30-2023 Telephone encounter Claudine valderrama MD Work Phone: [facility] [place] Comment on above: Clinical Update Start: 04-30-2023 End: 04-30-2023 Dr. Claudine Durán Work Phone: [facility] Work Phone: Start: 04-10-2023 Non-patient / Non-visit Dr. Sabrina Durán Work Phone: [facility] Start: 04-10-2023 Dr. Claudine avila Work Phone: [facility] Start: 04-10-2023 End: 04-10-[address] Claudine Durán Work Phone: [facility] Work Phone: Start: 04-10-2023 End: 04-10-[address] Claudine Durán Work Phone: [facility] Work Phone: Start: 04-10-2023 End: 04-10-2023 Dr. Claudine Durán [facility] Work Phone: Start: 04-09-2023 Non-patient / Non-visit Dr. Sabrina Durán Work Phone: [facility] Work Phone: Start: 04-09-2023 Dr. Claudine avila Work Phone: [facility] Work Phone: Start: 04-05-2023 End: 04-30-2023 Evaluation and management of inpatient Dr. Claudine Durán [facility] Start: 04-05-2023 End: 04-30-2023 Dr. Claudine Durán [facility] Start: 04-05-2023 Non-patient / Non-visit Dr. Sabrina Durán Work Phone: [facility] Work Phone: Start: 04-05-2023 Dr. Claudine avila Work Phone: [facility] Work Phone: Start: 04-04-2023 Non-patient / Non-visit Dr. Sabrina Durán Work Phone: [facility] Work Phone: Start: 04-04-2023 Dr. Claudine avila Work Phone: [facility] Work Phone: Start: 04-04-2023 Non-patient / Non-visit Dr. Sabrina Durán Work Phone: [facility] Start: 04-04-2023 Dr. Claudine avila Work Phone: [facility] Start: 04-03-2023 Non-patient / Non-visit Dr. Sabrina Durán Work Phone: [facility] Start: 04-03-2023 Dr. Claudine avila Work Phone: [facility] Start: 04-02-2023 Non-patient / Non-visit Dr. Sabrina Durán Work Phone: [facility] Work Phone: Start: 04-02-2023 Dr. Claudine avila Work Phone: [facility] Work Phone: Start: 04-02-2023 Non-patient / Non-visit Dr. Sabrina Durán Work Phone: [facility] Start: 04-02-2023 Dr. Claudine avila Work Phone: [facility] Start: 04-02-2023 Non-patient / Non-visit Dr. Sabrina Durán Work Phone: [facility] Start: 04-02-2023 Dr. Claudine avila Work Phone: [facility] Start: 04-02-2023 Non-patient / Non-visit Dr. Sabrina Durán Work Phone: [facility] Start: 04-02-2023 Dr. Claudine avila Work Phone: [facility] Start: 04-01-2023 Non-patient / Non-visit [facility] Start: 04-01-2023 Dr. [facility] Start: 04-01-2023 Non-patient / Non-visit Dr. Sabrina Durán Work Phone: [facility] Work Phone: Start: 04-01-2023 Dr. Claudine avila Work Phone: [facility] Work Phone: Start: 03-31-2023 End: 04-05-2023 Evaluation and management of inpatient Dr. Claudine Durán [facility] Work Phone: Start: 03-31-2023 End: 04-05-2023 Dr. Claudine Durán Work Phone: [facility] Work Phone: Start: 03-28-2023 End: 03-28-2023 Emergency department patient visit Dr. Claudine Durán Work Phone: [facility] Work Phone: Start: 03-28-2023 End: 03-28-2023 Dr. Claudine Durán [facility] Work [facility]: Start: 03-27-2023 Non-patient / Non-visit Dr. Sabrina Durán Work Phone: [facility] Work Phone: Start: 03-27-2023 Dr. Claudine avila Work Phone: [facility] [facility] Work Phone: Start: 03-27-2023 E-mail encounter fro m caregiver William Messina DO Work Phone: [facility] Start: 03-27-2023 Patient encounter procedure William Messina DO Work Phone: Cardiology Comment on above: Appointment Start: 03-26-2023 End: 03-27-2023 Evaluation and management of inpatient [facility] Work Phone: Start: 03-26-2023 observation encounter [facility] Work Phone: Start: 03-26-2023 End: 03-27-2023 Dr. Claudine Durán Work Phone: [facility] Work Phone: Start: 03-23-2023 Telephone encounter Rachelle Leonard APRN.COAT OPERATOR INSULATOR Work Phone: [facility] Comment on above: Appointment Start: 03-19-2023 End: 03-25-2023 Evaluation and management of inpatient CLAUDINE DURÁN Facility:[facility] Start: 03-19-2023 End: 03-19-2023 Emergency department patient visit [facility] Work Phone: Start: 03-19-2023 End: 03-19-2023 Dr. Claudine Durán Work Phone: [facility] Work Phone: Start: 03-15-2023 ambulatory Claudine tavares MD Work Phone: [facility] [place] Comment on above: histoplasmosis Start: 02-27-2023 Telephone encounter Claudine valderrama MD Work Phone: [facility] [place] Comment on above: Results (worsening l iver enzymes) Start: 02-07-2023 End: 02-07-2023 Subsequent hospital visit by physician X[facility] [place] Work Phone: Radiology Comment on above: Acute cough [R05.1] Start: 02-07-2023 End: 02-07-2023 Patient encounter procedure Adri Zaragoza DIGITAL COMMUNICATIONS MANAGER.COAT OPERATOR INSULATOR Work Phone: [facility] Comment on above: Acute cough (Primary Dx) Start: 02-02-2023 End: 02-02-2023 Anticoagulant drug monitoring [facility] Work Phone: [facility] [place] Comment on above: Personal history of DVT (deep vein thrombosis) (Primary Dx) Start: 01-24-2023 Refill Teresa barboza MD Work Phone: Pulmonary Medicine Comment on above: Refill Request Start: 01-17-2023 End: 01-17-2023 Anticoagulant drug monitoring [facility] Work Phone: [facility] [place] Comment on above: Embolism and thrombo sis (HCC) (Primary Dx) Start: 01-10-2023 End: 01-10-2023 Anticoagulant drug monitoring [facility] Work Phone: [facility] [place] Comment on above: Personal history of DVT (deep vein thrombosis) (Primary Dx) Start: 01-04-2023 End: 01-04-2023 Office outpatient visit 15 minutes Jimbo Swanson APRN.AMUSEMENT RIDE OPERATOR Work Phone: [facility] [place] Comment on above: Encounter for immuni zation (Primary Dx) Start: 01-04-2023 End: 01-04-2023 Anticoagulant drug monitoring [facility] Work Phone: [facility] [place] Comment on above: Embolism and thrombo sis (HCC) (Primary Dx) Start: 12-20-2022 Refill Claudine tavares MD Work Phone: [facility] [place] Comment on above: Refill Request Start: 12-14-2022 End: 12-14-2022 Anticoagulant drug monitoring [facility] [place] Comment on above: Embolism and thrombo sis (HCC) (Primary Dx) Start: 12-07-2022 End: 12-07-2022 Anticoagulant drug monitoring [facility] Work Phone: [facility] [place] Comment on above: Embolism and thrombo sis (HCC) (Primary Dx) Start: 11-20-2022 Documentation procedure Mammog adrina Coordinator [facility] Start: 11-20-2022 Letter encounter Mammography Coordinator [facility] Department Start: 11-17-2022 End: 11-17-2022 Subsequent hospital visit by physician Screen Mammo [facility] Comment on above: Encounter for screen ing mammogram for breast cancer [Z12.31] Start: 11-09-2022 Telephone encounter Claudine valderrama MD Work Phone: [facility] [place] Comment on above: Orders (protime) Start: 11-09-2022 End: 11-09-2022 Anticoagulant drug monitoring [facility] Work Phone: [facility] [place] Comment on above: Embolism and thrombo sis (HCC) (Primary Dx) Start: 11-09-2022 End: 11-09-2022 Patient encounter procedure Ron Veras MD Work Phone: Orthopaedics Comment on above: DDD (degenerative di sc disease), lumbar (Primary Dx); Hip pain, acute, left; Age-related osteoporosis without current pathological fracture Start: 11-01-2022 Telephone encounter Cluadine valderrama MD Work Phone: [facility] [place] Comment on above: Medication Problem Start: 10-31-2022 ambulatory Ashly Shay RN NURSE ORE BRIDGE OPERATOR Comment on above: Medication Request ( Warfarin) Refill Request Start: 10-27-2022 End: 10-27-2022 Office outpatient visit 25 minutes Jimbo Swanson APRN.AMUSEMENT RIDE OPERATOR Work Phone: [facility] [place] Comment on [...] Start: 10-26-2022 End: 10-26-[address] 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 Work Phone: [facility] [place] Comment on above: Personal history of DVT (deep vein thrombosis) (Primary Dx) Start: 08-29-2022 End: 08-29-2022 Office outpatient visit 15 minutes Rachelle Schulte APRN.COAT OPERATOR INSULATOR Work Phone: Cardiology Comment on above: Aortic stenosis with bicuspid valve (Primary Dx); Essential hypertension; History of recurrent deep vein thrombosis (DVT) Start: 08-15-2022 Refill [facility] Provider Pulmonary Medicine Comment on above: Refill Request Start: 08-11-2022 Telephone encounter Claudine valderrama MD Work Phone: [facility] [place] Comment on above: Patient Update Start: 07-24-2022 [...] 07-20-2022 Subsequent hospital visit by physician [facility] ([facility]) Work Phone: Cat Scan Comment on above: Lung nodules [R91.8] Start: 06-29-2022 End: 06-29-2022 [facility] Work [facility]: [facility] [place] Comment on above: Personal history of DVT (deep vein thrombosis) (Primary Dx) Start: 05-31-2022 ambulatory [facility] Provider [employer] Consultant Management Comment on above: Home Monitoring Ques tionnaire Reminder + Happy [place]ated Birthday! Start: 05-31-2022 E-mail encounter fro m caregiver [facility] Provider [facility] [employer] [place] Start: 05-23-2022 Telephone encounter Claudine valderrama MD Work Phone: [facility] [place] Comment on above: Clearance for surger y Start: 05-04-2022 End: 05-04-2022 [facility] [place] Comment on above: Personal history of DVT (deep vein thrombosis) (Primary Dx) Start: 04-21-2022 ambulatory [facility] Provider [employer] Consultant Management Comment on above: Home Monitoring Prog jelani Reminder Start: 04-21-2022 E-mail encounter fro m caregiver [facility] [employer] Start: 04-06-2022 End: 04-06-2022 [facility] Work Phone: [facility] [place] Comment on above: Personal history of DVT (deep vein thrombosis) (Primary Dx) Start: 03-30-2022 End: 03-30-2022 [facility] [place] Comment on above: Personal history [...] both eyes Start: 02-24-2022 ambulatory [facility] Provider [employer] Consultant Management Comment on above: [employer] Home Monitor ing Program Reminder Start: 02-24-2022 E-mail encounter fro m caregiver [facility] Provider [employer] Start: 02-17-2022 ambulatory [facility] Provider [employer] Consultant Management Comment on above: [employer] Home Monitor ing Program Reminder Start: 02-17-2022 E-mail encounter fro m caregiver [facility] Provider [employer] Start: 02-02-2022 End: 02-02-2022 Anticoagulant drug monitoring [facility] Work Phone: Coumadin [facility] Comment on above: Personal history of DVT (deep vein thrombosis) (Primary Dx) Start: 01-17-2022 ambulatory [facility] Provider [employer] Consultant Management Comment on above: [employer] Home Monitor ing Program Reminder Refill Request Start: 01-17-2022 E-mail encounter fro m caregiver [facility] Provider [employer] Start: 01-10-2022 Refill Jimbo Swanson ANNY Work Phone: [facility] [place] Comment on above: Refill Request Start: 01-05-2022 End: 01-05-2022 Anticoagulant drug monitoring [facility] Work Phone: Coumadin [facility] Comment on above: Personal history of DVT (deep vein thrombosis) (Primary Dx) Start: 12-31-2021 End: 12-31-2021 Subsequent hospital visit by physician Robbie [facility] [place] Work Phone: Radiology Comment on above: Hip pain, acute, lef t [M25.552] Start: 12-22-2021 End: 12-22-2021 Anticoagulant drug monitoring [facility] Work Phone: [facility] [place] Comment on above: Personal history of DVT (deep vein thrombosis) (Primary Dx) Start: 11-29-2021 ambulatory Jimbo Swanson APRN.AMUSEMENT RIDE OPERATOR Work Phone: [facility] [place] Comment on above: Blood pressure Start: 11-29-2021 [...] End: 11-10-2021 Patient encounter procedure Jimbo Swanson APRN.AMUSEMENT RIDE OPERATOR Work Phone: [facility] [place] Comment on above: Essential hypertensi on (Primary [...] encounter Claudine valderrama MD Work Phone: Coumadin [facility] [place] Comment on above: Orders (protime) Start: 10-27-2021 End: 10-27-2021 [facility] Work Phone: [facility] [place] Comment on above: Personal [...] physician Robbie [facility] [place] [facility] Work Phone: Radiology Comment on above: Ulcer of toe of left foot, limited to breakdown of skin (HCC) [L97.521] Start: 10-12-2021 End: 10-12-2021 Subsequent hospital visit by physician [facility] Work Phone: Radiology Comment on above: Abnormal mammogram [ R92.8] Start: 09-29-2021 End: 09-29-2021 Anticoagulant drug monitoring [facility] Work Phone: Coumadin [facility] [place] Comment on above: Personal history of DVT (deep vein thrombosis) (Primary Dx) Start: 09-20-2021 End: 09-20-2021 Patient encounter procedure Jimbo Swanson APRN.AMUSEMENT RIDE OPERATOR Work Phone: Internal [facility] [place] Comment on above: Toe infection (Prima ry Dx); Sinobronchitis Start: 09-05-2021 Documentation procedure Mammog adrian Coordinator [facility] Start: 09-05-2021 Letter encounter Mammography Coordinator [facility] Department Start: 09-05-2021 End: 09-05-2021 Subsequent hospital visit by physician Screen Mammo [facility] Mammogram Comment on above: Encounter for screen ing mammogram for breast cancer [Z12.31] Start: 08-23-2021 End: 08-23-2021 Anticoagulant drug monitoring [facility] Work Phone: Coumadin [facility] [place] Comment on above: Personal [...] Start: 07-25-2021 End: 07-25-2021 Anticoagulant drug monitoring [facility] [place] Comment on above: Personal history of DVT (deep vein thrombosis) (Primary Dx) Start: 07-11-2021 End: 07-11-2021 Office outpatient visit 25 minutes Claudine Durán MD Work Phone: [facility] [place] Comment on above: Gastroesophageal ref lux disease without esophagitis (Primary Dx); Other viral warts; Elevated LDL cholesterol level; Essential hypertension; Need for COVID-19 vaccine; COPD without exacerbation (HCC); Bronchiectasis without complication (HCC) Start: 07-07-2021 End: 07-07-2021 Patient encounter procedure [facility], Specimen Start: 06-29-2021 ambulatory Gold Coy RN [employer] Consultant Management Comment on above: Community Monitoring Outreach (COPD CDM Outreach) Start: 06-09-2021 End: 06-09-2021 Anticoagulant drug monitoring [facility] Work Phone: [facility] Comment on above: Embolism and thrombo sis (HCC) Start: 06-04-2021 Refill Claudine tavares MD Work Phone: [facility] [place] Comment on above: Refill Request Start: 2021 End: 2021 Patient encounter procedure Mirian Andujar MD Work Phone: Pulmonary Medicine Comment on above: Moderate COPD (chron ic obstructive pulmonary disease) (HCC) (Primary Dx); Bronchiectasis without complication (HCC); Centrilobular emphysema (HCC) Start: 05-26-2021 End: 05-26-2021 Anticoagulant drug monitoring [facility] [place] Comment on above: Embolism and thrombo sis (HCC) Start: 05-20-2021 ambulatory Nara (Pss) [facility] [place] Comment on above: Population Health Na vigation [...] Start: 02-28-2018 Patient encounter procedure Will Hurley [facility] Start: 10-02-2014 End: 10-03-2014 Ambulatory Mykeldeshawn Santamaria Facility:[facility] Procedures Date Procedure Procedure Detail Performing [...] exam chest 2 views Leandra Elmore linda DIGITAL COMMUNICATIONS MANAGER.AMUSEMENT RIDE OPERATOR Work Phone: Start: 03-25-2024 Rp loclzj mary spect w/ct 1 area 1 day imaging Monica Aguila DIGITAL COMMUNICATIONS MANAGER.COAT OPERATOR INSULATOR Work Phone: Start: 03-25-2024 Spmtry w/vc expiratory [place] w/wo mxml vol vntj Monica Aguila DIGITAL COMMUNICATIONS MANAGER.COAT OPERATOR INSULATOR Work Phone: Start: 03-21-2024 Radiologic exam chest 2 views Monica Aguila DIGITAL COMMUNICATIONS MANAGER.COAT OPERATOR INSULATOR Work Phone: Start: 03-21-2024 Ct angiography chest w/contrast/noncontrast Monica Aguila DIGITAL COMMUNICATIONS MANAGER.COAT OPERATOR INSULATOR Work Phone: Start: 03-21-2024 Ct angio abd&plvis cntrst mtrl w/wo cntrst img Monica Aguila DIGITAL COMMUNICATIONS MANAGER.COAT OPERATOR INSULATOR Work Phone: Start: 03-21-2024 Creatinine [Mass/volume] in [...] A/B & RSV NAAT, ROUTINE Adri Zaragoza DIGITAL COMMUNICATIONS MANAGER.COAT OPERATOR INSULATOR Work Phone: Start: 02-07-2023 Radiologic exam chest 2 views Adri de la rosa DIGITAL COMMUNICATIONS MANAGER.COAT OPERATOR INSULATOR Work Phone: Start: 01-04-2023 PFIZER-BIONTECH COVID-19 VACCINE (2022- SEASON) AGE 12+ YR Jimbo Swanson DIGITAL COMMUNICATIONS MANAGER.AMUSEMENT RIDE OPERATOR Work Phone: Start: 01-04-2023 Prothrombin time Jimbo Swanson DIGITAL COMMUNICATIONS MANAGER.AMUSEMENT RIDE OPERATOR Work Phone: Start: 11-17-2022 Screening digital [facility] COMMUNICATIONS MANAGER.AMUSEMENT RIDE OPERATOR Work Phone: Start: 10-27-2022 INFLUENZA VACCINE, PRSV FREE, AGE 65+ YR, HIGH DOSE, QUADRIVALENT (FLUZONE HIGH-DOSE) Jimbo Swanson DIGITAL COMMUNICATIONS MANAGER.AMUSEMENT RIDE OPERATOR Work Phone: Start: 08-29-2022 Ecg routine ecg w/least 12 lds i&r only [facility] Provider Start: 07-20-2022 Ct thorax w/o contrast material Meche Collins MD Work Phone: Start: 12-31-2021 Radex hip unilateral with pelvis 2-3 views Ernie Belcher DIGITAL COMMUNICATIONS MANAGER.COAT OPERATOR INSULATOR Work Phone: Start: 11-10-2021 INFLUENZA SEASONAL QUADRIVALENT HIGH DOSE AGE 65+ Jimbo Swanson DIGITAL COMMUNICATIONS MANAGER.AMUSEMENT RIDE OPERATOR Work Phone: Start: 11-10-2021 PFIZER-BIONTECH COVID-19 BIVALENT BOOSTER VACCINE, AGE 12+ YR Jimbo Sans DIGITAL COMMUNICATIONS MANAGER.AMUSEMENT RIDE OPERATOR Work Phone: Start: 11-10-2021 Adult depression screening assessment Jimbo Swanson DIGITAL COMMUNICATIONS MANAGER.AMUSEMENT RIDE OPERATOR Work Phone: Start: 10-18-2021 Radex foot complete minimum 3 views Shilo hew Testrake Work Phone: Start: 10-12-2021 Diagnostic mammography computer-aided [facility] DIGITAL COMMUNICATIONS MANAGER.COAT OPERATOR INSULATOR Work Phone: Start: 09-05-2021 End: 09-05-2021 Screening mammography bi 2-view breast inc cad [facility] DIGITAL COMMUNICATIONS MANAGER.COAT OPERATOR INSULATOR Work Phone: Start: 07-11-2021 PFIZER-BIONTECH COVID-19 VACCINE, AGE 12+ YR (ARIAS TOP) Claudine Durán MD Work Phone: Start: 07-07-2021 Lipid 1996 panel - Serum or Plasma Ashly Shay RN Start: 07-13-2020 Adult depression screening assessment Nara Talavera Start: 06-01-2020 Mammography Nara Dopart Start: 03-24-2019 Colonoscopy Nara Dopa Plan of Treatment Date Care Activity Detail Author Start: 11-05-2029 Urine microalbumin profile [facility] Start: 03-24-2029 Colonoscopy COLONOSCOPY [facility] Start: 03-24-2029 COLORECTAL CANCER SCREENING COLORECTAL CANCER SCREENING [facility] Start: 03-24-2029 Screening for malignant neoplasm of colon [facility] Start: 07-23-2027 Diabetes Screening Diabetes Screening [facility] Start: 05-04-2027 Diabetes Screening Diabetes Screening [facility] Start: 05-01-2027 Diabetes Screening Diabetes Screening [facility] Start: 03-24-2027 Diabetes Screening Diabetes Screening [facility] Start: 03-21-2027 Diabetes Screening Diabetes Screening [facility] Start: 10-10-2026 Diabetes Screening Diabetes Screening [facility] Start: 08-29-2026 Diabetes Screening Diabetes Screening [facility] Start: 08-21-2026 Diabetes Screening Diabetes Screening [facility] Start: 07-07-2026 Lipid 1996 panel - Serum or Plasma Lipid Screening [facility] Start: 07-07-2026 Lipid panel Lipid Screening [facility] Start: 07-07-2026 LIPID SCREEN LIPID SCREEN [facility] Start: 06-04-2026 Diabetes Screening Diabetes Screening [facility] Start: 03-25-2026 Diabetes Screening Diabetes Screening [facility] Start: 03-22-2026 Diabetes Screening Diabetes Screening [facility] Start: 11-23-2025 End: 11-23-2025 Patient encounter procedure 11/23/2025 1:00 PM EDT Office Visit [facility] [address] [place] [address] Claudine Durán MD [address] [place] [address] Medicare Wellness [facility] Comment on above: Medicare Wellness Start: 10-24-2025 Annual PCP Team Chronic Disease Visit Annual PCP Team Chronic Disease Visit [facility] Start: 05-26-2025 End: 05-26-2025 Patient encounter procedure 05/26/2025 9:00 AM EDT Office Visit [facility] [address] [place] [address] Jimbo Swanson, DIGITAL COMMUNICATIONS MANAGER.AMUSEMENT RIDE OPERATOR [address] [place] [address] Medicare Wellness [facility] Comment on above: Medicare Wellness Start: 05-20-2025 Annual PCP Team Chronic Disease Visit Annual PCP Team Chronic Disease Visit [facility] Start: 05-20-2025 BP Controlled (<130/80) BP Controlled (<130/80) [facility] Start: 05-20-2025 zzBP Controlled (<130/80) (Retired) zzBP Controlled (<130/80) (Retired) [facility] Start: 04-30-2025 BP Controlled (<130/80) BP Controlled (<130/80) [facility] Start: 02-28-2025 Annual PCP Team Chronic Disease Visit Annual PCP Team Chronic Disease Visit [facility] Start: 02-28-2025 Anxiety Screening Anxiety Screening [facility] Start: 02-28-2025 Covid-19 Vaccine () Covid-19 Vaccine () [facility] Comment on above: Postponed from 01/17/2024 (Declined at t his time) Postponed from 05/22 (Declined at this time) Start: 02-28-2025 Covid-19 Vaccine (9 - Pfizer risk ) Covid-19 Vaccine (9 - Pfizer risk ) [facility] Comment on above: Postponed from 05/22/2024 (Declined at t his time) Start: 02-28-2025 Depression Screening Depression Screening [facility] Start: 01-01-2025 BP Controlled (<130/80) BP Controlled (<130/80) [facility] Start: 10-27-2024 End: 10-27-2024 Patient encounter procedure 10/27/2024 10:00 AM EDT Office Visit [facility] [address] [place] [address] Geno Hart MD [address] [place] [address] Return in about 6 months (around 10/22/2024). [facility] Comment on above: Return in about 6 months (around ). Start: 10-20-2024 Influenza vaccination Influenza Vaccine (#1) [facility] Start: 10-19-2024 [facility] Start: 10-17-2024 BP Controlled (<130/80) BP Controlled (<130/80) [facility] Start: 10-10-2024 BP Controlled (<130/80) BP Controlled (<130/80) [facility] Start: 10-02-2024 [facility] Start: 09-03-2024 End: 09-03-2024 Anticoagulant drug monitoring 09/03/2024 10:00 AM EDT [facility] [address] [place] [address] Wstr, Anticoag [facility] [place] [address] [place] [address] inr [facility] Comment on above: inr Start: 08-29-2024 Prothrombin time [facility] Start: 08-28-2024 Prothrombin time [facility] Start: 08-27-2024 BP Controlled (<130/80) BP Controlled (<130/80) [facility] Start: 08-27-2024 Patient discharge [facility] Start: 08-26-2024 BP Controlled (<130/80) BP Controlled (<130/80) [facility] Start: 08-26-2024 Care planning and problem solving actions [facility] Start: 08-26-2024 Prothrombin time [facility] Start: 08-25-2024 Care planning and problem solving actions [facility] Start: 08-25-2024 Prothrombin time [facility] Start: 08-25-2024 [facility] Start: 08-24-2024 Prothrombin time [facility] Start: 08-23-2024 Application short arm splint forearm-hand static [facility] Start: 08-23-2024 Following clinical pathway protocol [facility] Start: 08-23-2024 Ambulation without limitation [facility] Start: 08-23-2024 Assessment of risk of venous thromboembolism [facility] Start: 08-23-2024 Consultation [facility] Start: 08-23-2024 Incentive spirometry [facility] Start: 08-23-2024 Insertion of catheter into peripheral vein [facility] Start: 08-23-2024 Measuring intake and output [facility] Start: 08-23-2024 Providing care according to standard [facility] Start: 08-23-2024 Referral to occupational therapist [facility] Start: 08-23-2024 Referral to service [facility] Start: 08-23-2024 [facility] Start: 08-23-2024 Verification routine [facility] Start: 08-23-2024 Admission procedure [facility] Start: 08-23-2024 Inhalation therapy procedure [facility] Start: 08-23-2024 [facility] Start: 08-21-2024 Annual PCP Team Chronic Disease Visit Annual PCP Team Chronic Disease Visit [facility] Start: 08-21-2024 BP Controlled (<130/80) BP Controlled (<130/80) [facility] Start: 08-21-2024 End: 08-21-2024 Anticoagulant drug monitoring 08/21/2024 10:30 AM EDT Antico[facility] [address] [place] [address] Wstr, Anticoag [facility] [place] [address] [place] [address] inr Coumadin [facility] Comment on above: inr Start: 08-07-2024 Annual PCP Team Chronic Disease Visit Annual PCP Team Chronic Disease Visit [facility] Start: 08-06-2024 End: 08-06-2024 Anticoagulant drug monitoring 08/06/2024 10:30 AM EDT Antico[facility] [address] [place] [address] Wstr, Anticoag [facility] [place] [address] [place] [address] inr Coumadin [facility] Comment on above: inr Start: 07-22-2024 End: 07-22-2024 Patient encounter procedure Cardiology Comment on above: S/P TAVR Start: 07-22-2024 End: 07-22-2024 ambulatory [facility] [id number] Dra mikal Rosales Comment on above: LAB S/P TAVR Start: 07-21-2024 End: 07-21-2024 Anticoagulant drug monitoring 07/21/2024 10:30 AM EDT Antico[facility] [address] [place] [address] Wstr, [facility]ag [facility] [place] [address] [place] [address] inr [facility] Comment on above: inr Start: 07-09-2024 BP Controlled (<130/80) BP Controlled (<130/80) [facility] Start: 07-07-2024 End: 07-07-2024 Anticoagulant drug monitoring 07/07/2024 10:30 AM EDT Anticoagulation Visit Coumadin [facility] [address] [place], [place] [id number] Wstr, [facility] [address] [place] [address] inr [facility] Comment on above: inr Start: 06-16-2024 End: 09-15-2024 HISTOPLASMA AG URINE HISTOPLASMA AG URINE Lab Routine Disseminated histoplasmosis Expected: 06/16/2024, Expires: 09/15/2024 [facility] Work Phone: Comment on above: Expected: 06/16/2024, Expires: Start: 06-04-2024 Annual PCP Team Chronic Disease Visit Annual PCP Team Chronic Disease Visit [facility] Start: 06-04-2024 BP Controlled (<130/80) BP Controlled (<130/80) [facility] Start: 06-03-2024 End: 06-03-2024 Anticoagulant drug monitoring 06/03/2024 2:30 PM EDT Anticoagulation Visit Cou[facility] [address] [place] [address] Wstr, [facility] [address] [place] [address] inr [facility] Comment on above: inr Start: 05-20-2024 End: 05-20-2024 Patient encounter procedure 05/20/2024 1:00 PM EDT Office Visit [facility] [address] [place], [place] [id number] Jimbo Swanson APRN.AMUSEMENT RIDE OPERATOR [address] [place], [place] [address] Medicare Wellness [facility] Comment on above: Medicare Wellness Start: 05-20-2024 End: 05-20-2024 Anticoagulant drug monitoring 05/20/2024 12:30 PM EDT Antico[facility] Visit [facility] [address] [place] [address] Wstr, Anticoag [facility] [place] [address] [place] [address] inr [facility] Comment on above: inr Start: 05-05-2024 End: 05-05-2024 Patient encounter procedure Cardiology Comment on above: S/P TAVR Start: 05-02-2024 End: 08-01-2024 CBC W Auto Differential panel - Blood COMPLETE BLOOD COUNT AND DIFFERENTIAL Lab STAT Nonrheumatic aortic valve stenosis Aortic valve disorder Expected: 05/02/2024 (Approximate), Expires: 08/01/2024 [facility] Comment on above: Expected: 05/02/2024 (Approximate), Expi res: 08/01/2024 Start: 05-02-2024 End: 08-01-2024 Comprehensive metabolic 2000 panel - Serum or Plasma COMPREHENSIVE METABOLIC PANEL Lab STAT Nonrheumatic aortic valve stenosis Aortic valve disorder Expected: 05/02/2024 (Approximate), Expires: 08/01/2024 [facility] Comment on above: Expected: 05/02/2024 (Approximate), Expi res: 08/01/2024 Start: 05-02-2024 End: 08-01-2024 CONFIRM BLOOD TYPE CONFIRM BLOOD TYPE Blood Bank STAT Nonrheumatic aortic valve stenosis Aortic valve disorder Expected: 05/02/2024 (Approximate), Expires: 08/01/2024 [facility] Comment on above: Expected: 05/02/2024 (Approximate), Expi res: 08/01/2024 Start: 05-02-2024 End: 08-01-2024 Natriuretic peptide.B prohormone N-Terminal [Mass/volume] in Serum or Plasma NT PRO BNP Lab STAT Nonrheumatic aortic valve stenosis Aortic valve disorder Expected: 05/02/2024 (Approximate), Expires: 08/01/2024 [facility] Comment on above: Expected: 05/02/2024 (Approximate), Expi res: 08/01/2024 Start: 05-02-2024 End: 08-01-2024 PT panel - Platelet poor plasma by Coagulation assay PROTHROMBIN TIME Lab STAT Nonrheumatic aortic valve stenosis Aortic valve disorder Expected: 05/02/2024 (Approximate), Expires: 08/01/2024 [facility] Comment on above: Expected: 05/02/2024 (Approximate), Expi res: 08/01/2024 Start: 05-02-2024 End: 08-01-2024 TYPE AND SCREEN,30 DAY TYPE AND SCREEN,30 DAY Blood Bank STAT Nonrheumatic aortic valve stenosis Aortic valve disorder Expected: 05/02/2024 (Approximate), Expires: 08/01/2024 [facility] Comment on above: Expected: 05/02/2024 (Approximate), [...] 8:45 AM EDT Office Visit Cardiology [address] [place] [address] COMMERCIAL TF- TAVR ( CARLYN) Cardiology Comment on above: COMMERCIAL TF- TAVR ( CARLYN) Start: 05-02-2024 End: 05-02-2024 ambulatory 05/02/2024 8:30 AM EDT Procedure Cardiology [address] [place] [id number] COMMERCIAL TF- TAVR ( CARLYN) Cardiology Comment on above: COMMERCIAL TF- TAVR ( CARLYN) Start: 05-02-2024 End: 05-02-2024 Anesthesia consultation 05/02/2024 8:00 AM EDT Anesthesia Event Admitting [address] [place] [address] Nara Mcnair APRN.[address], [address] [place] [address] Admitting Start: 05-02-2024 End: 05-02-2024 Admission to [...] 11:30 AM EDT Anticoagulation Visit [facility] [address] [place], [place] [address] Wstr, Anticoag [facility] [place] [address] [place], [place] [address] inr [facility] Comment on above: inr Start: 04-30-2024 End: 04-30-2024 Patient encounter procedure 04/30/2024 2:20 PM EDT Office Visit Cardiothoracic [address] [place] [address] COMMERCIAL TF- TAVR ( CARLYN) Cardiothoracic Comment on above: COMMERCIAL TF- TAVR ( CARLYN) Start: 04-30-2024 End: 04-30-2024 Patient encounter procedure Cardiology Comment on above: COMMERCIAL TF- TAVR ( CARLYN) Start: 04-30-2024 End: 04-30-2024 ambulatory 04/30/2024 11:00 AM EDT Results Only [facility] [address] [place] [address] COMMERCIAL TF- TAVR ( CARLYN) [facility] Comment on above: COMMERCIAL TF- TAVR ( CARLYN) Start: 04-21-2024 End: 04-21-2024 Patient encounter procedure 04/21/2024 11:00 AM EST Office Visit [facility] [address] [place] [address] Geno Hart MD [address] [place] [address] Return in about 4 months (around 04/18/2024). [facility] Comment on above: Return in about 4 months (around 04/18/19). Start: 04-03-2024 End: 04-03-2024 Anticoagulant drug monitoring 04/03/2024 11:30 AM EST Anticoagulation Visit [facility] [address] [place], [place] [address] Wstr, Anticoag [facility] [place] [address] [place], [place] [id number] inr [facility] Comment on above: inr Start: 03-25-2024 End: 03-25-2024 Patient encounter procedure Cardiology Comment on above: New TAVR Workup NM SPECT/CT CARDIAC AMYLOID Start: 03-25-2024 End: 03-25-2024 ambulatory Pulmonary Medicine Comment on above: New TAVR Workup Start: 03-24-2024 End: 03-24-2024 Admission to same day surgery center 03/24/2024 5:45 PM EST - 03/24/2024 6:53 PM EST Surgery HOSP Coding Specialist [address] [place] [address] Michael Beavers MD [address] [place], [place] [id number] CORONARY ANGIO W CATH PLACE W IMAGE INJECT & INTERP W LT HEART CATH W INJECT LT VENTRGRAPHY [facility] Coding Specialist Comment on above: CORONARY ANGIO W [...] aortic valve stenosis 03/24/2024 5:45 PM EST ENGINEER TECHNICAL STAFF Start: 03-24-2024 Subsequent hospital visit by physician 03/24/2024 5:45 PM EST Hospital Encounter HOSP Coding Specialist [address] [place] [address] Michael Beavers MD [address] [place] [address] Nonrheumatic aortic valve stenosis [I35.0] HOSP Coding Specialist Comment on above: Nonrheumatic aortic valve stenosis [I35. 0] Start: 03-24-2024 End: 03-24-2024 Patient encounter procedure 03/24/2024 10:00 AM EST Office Visit Admitting [address] [place] [address] ADMIT Admitting Comment on above: ADMIT Start: 03-24-2024 End: 03-24-2024 ambulatory Cardiology Comment on above: [facility] Start: 03-21-2024 End: 03-21-2024 ambulatory [facility] J1-4 Dra mikal Rosales Comment on above: New TAVR Workup Start: 03-21-2024 End: 03-21-2024 Patient encounter procedure Radiology Comment on above: New TAVR Workup Start: 03-21-2024 End: 03-21-2024 Patient encounter procedure 03/21/2024 9:30 AM EST Office Visit Cardiology [address] [place] [address] [place] [address] [place], [place] [phone] Clinician, Interventional [address] [place], [place] [id number] New TAVR Workup Cardiology Comment on above: New TAVR Workup Start: 03-03-2024 BP Controlled (<130/80) BP Controlled (<130/80) [facility] Start: 02-29-2024 End: 02-29-2024 Patient encounter procedure 02/29/2024 3:40 PM EST Office Visit [facility] [address] [place], [place] [phone] Claudine Durán MD [address] [place], [place] [id number] 4 Month follow up [facility] Comment on above: 4 Month follow up Start: 02-29-2024 End: 02-29-2024 Anticoagulant drug monitoring 02/29/2024 3:30 PM EST Anticoagulation Visit [facility] [address] [place] [address] Wstr, [facility] [place] [address] [place] [address] inr [facility] Comment on above: inr Start: 02-25-2024 End: 02-25-2024 Patient encounter procedure 02/25/2024 12:15 PM EST Office Visit Cardiology [address] [place] [address] Lili Roche MD [address] [place] [address] Aortic valve stenosis, etiology of cardiac valve disease unspecified [I35.0] Cardiology Comment on above: Aortic valve stenosis, etiology of cardi ac valve disease unspecified [I35.0] Start: 02-20-2024 Advance Directive Discussion Advance Directive Discussion [facility] Start: 01-31-2024 End: 01-31-2024 Anticoagulant drug monitoring 01/31/2024 10:30 AM EST Anticoagulation Visit [facility]mad[facility] [address] [place] [address] [facility]str[facility] [address] [place] [address] inr Coumadin [facility] Comment on above: inr Start: 01-25-2024 End: 01-25-2024 Patient encounter procedure 01/25/2024 11:20 AM EST Office Visit Cardiology [address] [address] William Messian DO [address] [place] [address] 3 month follow up Cardiology Comment on above: 3 month follow up Start: 01-18-2024 End: 10-17-2024 ECHO LIMITED ECHO LIMITED Cardiology Routine Pericardial effusion Expected: 01/18/2024 (Approximate), Expires: 10/17/2024 [facility] Work Phone: Comment on above: Expected: 01/18/2024 (Approximate), Expi res: 10/17/2024 Start: 01-18-2024 End: 01-18-2024 Patient encounter procedure 01/18/2024 10:30 AM EST Office Visit Cardiology [address] [place], [place] [id number] Pericardial effusion [I31.39] Cardiology Comment on above: Pericardial effusion [I31.39] Start: 01-17-2024 Covid-19 Vaccine () Covid-19 Vaccine () [facility] Start: 01-10-2024 End: 01-10-2024 Anticoagulant drug monitoring 01/10/2024 12:00 PM EST Anticoagulation Visit Coumadin [facility] [address] [place], [place] [phone] Wstr, Anticoag [facility] [place] [address] [place] [address] inr Coumadin [facility] Comment on above: inr Start: 01-08-2024 End: 04-08-2024 CBC W Auto Differential panel - Blood COMPLETE BLOOD COUNT AND DIFFERENTIAL Lab Routine Nonrheumatic aortic valve stenosis Aortic valve disorder Expected: 01/08/2024, Expires: 04/08/2024 [facility] Comment on above: Expected: 01/08/2024, Expires: Start: 01-08-2024 End: 04-08-2024 Comprehensive metabolic 2000 panel - Serum or Plasma COMPREHENSIVE METABOLIC PANEL Lab Routine Nonrheumatic aortic valve stenosis Aortic valve disorder Expected: 01/08/2024, Expires: 04/08/2024 [facility] Comment on above: Expected: 01/08/2024, Expires: Start: 01-08-2024 End: 04-08-2024 HIGH SENSITIVITY TROPONIN T HIGH SENSITIVITY TROPONIN T Lab Routine Nonrheumatic aortic valve stenosis Expected: 01/08/2024, Expires: 04/08/2024 [facility] Comment on above: Expected: 01/08/2024, Expires: 5 Start: 01-08-2024 End: 04-08-2024 Lipoprotein a [Mass/volume] in Serum or Plasma LIPOPROTEIN (A) Lab Routine Nonrheumatic aortic valve stenosis Expected: 01/08/2024, Expires: 04/08/2024 [facility] Comment on above: Expected: 01/08/2024, Expires: 5 Start: 01-08-2024 End: 04-08-2024 Natriuretic peptide.B prohormone N-Terminal [Mass/volume] in Serum or Plasma NT PRO BNP Lab Routine Nonrheumatic aortic valve stenosis Expected: 01/08/2024, Expires: 04/08/2024 [facility] Comment on above: Expected: 01/08/2024, Expires: 5 Start: 01-08-2024 End: 04-08-2024 PT panel - Platelet poor plasma by Coagulation assay PROTHROMBIN TIME Lab STAT Nonrheumatic aortic valve stenosis Expected: 01/08/2024, Expires: 04/08/2024 [facility] Comment on above: Expected: 01/08/2024, Expires: Start: 01-08-2024 End: 01-08-2024 Patient encounter procedure 01/08/2024 10:30 AM EST Office Visit [facility] [address] [place] [phone] Geno Hart MD [address] [place] [address] follow up [facility] Comment on above: follow up Start: 01-05-2024 BP Controlled (<130/80) BP Controlled (<130/80) [facility] Start: 01-02-2024 End: 01-02-2024 Patient encounter procedure 01/02/2024 9:45 AM EST Office Visit Cardiology [address] [phone] Lili Roche MD [address] [place] [address] DX: Aortic valve stenosis, etiology of cardiac valve disease unspecified; Mitral valve stenosis, unspecified etiology Cardiology Comment on above: DX: Aortic valve stenosis, etiology of c ardiac valve disease unspecified; Mitral valve stenosis, unspecified etiology Start: 01-02-2024 End: 01-02-2024 ambulatory 01/02/2024 9:00 AM EST Results Only Cardiology [address] [place] [address] DX: Aortic valve stenosis, etiology of cardiac valve disease unspecified; Mitral valve stenosis, unspecified etiology Cardiology Comment on above: DX: Aortic valve stenosis, etiology of c ardiac valve disease unspecified; Mitral valve stenosis, unspecified etiology Start: 12-27-2023 End: 12-27-2023 Anticoagulant drug monitoring 12/27/2023 10:30 AM EST Antico[facility] [address] [place] [address] Wstr, [facility] [place] [address] [place] [address] inr [facility] Comment on above: inr Start: 12-18-2023 End: 12-18-2023 Patient encounter procedure 12/18/2023 11:00 AM EDT Office Visit [facility] [address] [place] [address] [phone] Geno Hart MD [address] [place] [address] follow up [facility] Comment on above: follow up Start: 12-13-2023 End: 12-13-2023 Anticoagulant drug monitoring 12/13/2023 10:45 AM EDT [facility] [address] [place], [place] [id number] Wstr, Anticoag [facility] [place] [address] [place], [place] [address] inr [facility] Comment on above: inr Start: 11-29-2023 End: 11-29-2023 Anticoagulant drug monitoring 11/29/2023 11:00 AM EDT Antico[facility] [place] [address] [place] [address] Wstr, Anticoag [facility] [place] [address] [place] [address] inr [facility] Comment on above: inr Start: 11-15-2023 End: 11-15-2023 Anticoagulant drug monitoring 11/15/2023 12:00 PM EDT Anticoagulation [facility] [place] [address] [place] [address] Wstr, Anticoag [facility] [place] [address] [facility] [place] [address] inr [facility] Comment on above: inr Start: 11-08-2023 End: 11-08-2023 Anticoagulant drug monitoring 11/08/2023 1:00 PM EDT Antico[facility] [place] [address] [place] [address] Wstr, Anticoag [facility] [place] [address] [facility] [place] [address] inr [facility] Comment on above: inr Start: 10-28-2023 BP CONTROLLED (<130/80) BP CONTROLLED (<130/80) [facility] in Start: 10-25-2023 End: 10-25-2023 Anticoagulant drug monitoring 10/25/2023 12:00 PM EDT Antico[facility] [place] [address] [place] [address] Wstr, Anticoag [facility] [place] [address] [facility] [place] [address] inr [facility] [place] Comment on above: inr Start: 10-21-2023 Covid-19 Vaccine () Covid-19 Vaccine () [facility] Start: 10-21-2023 Covid-19 Vaccine ( season) Covid-19 Vaccine () [facility] Start: 10-21-2023 Influenza [facility] Start: 10-19-2023 End: 10-19-2023 Anticoagulant drug monitoring 10/19/2023 11:00 AM EDT Anticoagulation Visit [facility] [place] [address] [place] [address] Wstr, Anticoag [facility] [place] [address] [place] [address] inr [facility] [place] Comment on above: inr Start: 10-18-2023 End: 10-18-2023 Patient encounter procedure 10/18/2023 10:00 AM EDT Office Visit Cardiology [address] [address] Bibi Alegria, DIGITAL COMMUNICATIONS MANAGER.COAT OPERATOR INSULATOR [address] [place] [address] 1 month follow up Cardiology Comment on above: 1 month follow up Start: 10-11-2023 End: 10-11-2023 Patient encounter procedure 10/11/2023 1:00 PM EDT Office Visit [facility] [place] [address] [place] [address] Jimbo Swansno, CONNIE.AMUSEMENT RIDE OPERATOR [address] [place] [address] 4Month follow up [facility] [place] Comment on above: 4Month follow up Start: 09-28-2023 End: 09-28-2023 Patient encounter procedure 09/28/2023 10:30 AM EDT Office Visit Cardiology [address] [address] Nonrheumatic aortic valve stenosis [I35.0] Cardiology Comment on above: Nonrheumatic aortic valve stenosis [I35. 0] Start: 09-27-2023 End: 09-27-2023 Anticoagulant drug monitoring 09/27/2023 10:45 AM EDT Antico[facility] [place] [address] [place] [address] Wstr, Anticoag [facility] [address] [facility] [place] [address] inr [facility] Comment on above: inr Start: 09-20-2023 End: 09-20-2023 Anticoagulant drug monitoring 09/20/2023 10:00 AM EDT Anticoagulation Visit [facility] [place] [address] [place] [address] Wstr, Anticoag [facility] [address] [facility] [place] [address] inr [facility] [place] Comment on above: inr Start: 09-10-2023 End: 12-10-2023 Basic metabolic 2000 panel - Serum or Plasma BASIC METABOLIC PANEL Lab Routine Nonrheumatic aortic valve stenosis Mitral valve stenosis, non-rheumatic Essential hypertension Pericardial effusion (noninflammatory) Leg edema Expected: 09/10/2023, Expires: 12/10/2023 [facility] Comment on above: Expected: 09/10/2023, Expires: Start: 09-10-2023 End: 12-10-2023 Natriuretic peptide.B prohormone N-Terminal [Mass/volume] in Serum or Plasma NT PRO BNP Lab Routine Nonrheumatic aortic valve stenosis Mitral valve stenosis, non-rheumatic Essential hypertension Pericardial effusion (noninflammatory) Leg edema Expected: 09/10/2023, Expires: 12/10/2023 [facility] Comment on above: Expected: 09/10/2023, Expires: Start: 08-30-2023 End: 08-30-2023 Anticoagulant drug monitoring 08/30/2023 12:45 PM EDT Anticoagulation [facility] [place] [address] [place] [address] Wstr, Anticoag [facility] [place] [address] [place] [address] inr [facility] Comment on above: inr Start: 08-28-2023 End: 11-27-2023 Histoplasma capsulatum Ab [Presence] in Serum by Immune diffusion (ID) HISTOPLASMA AB ID Lab Routine Disseminated histoplasmosis Encounter for long-term (current) use of antibiotics Expected: 08/28/2023, Expires: 11/27/2023 [facility] Work Phone: Comment on above: Expected: 08/28/2023, Expires: Start: 08-28-2023 End: 08-28-2023 Patient encounter procedure 08/28/2023 9:00 AM EDT Office Visit [facility] [address] [place] [phone] Geno Hart MD [address] [place] [address] follow up [facility] Comment on above: follow up Start: 08-27-2023 End: 08-27-2023 Patient encounter procedure 08/27/2023 8:20 AM EDT Office Visit Cardiology [address], [place] [id number] William Messina, [address] [place] [address] Annual Cardiology Comment on above: Annual Start: 08-22-2023 End: 08-22-2023 Anticoagulant drug monitoring 08/22/2023 9:30 AM EDT Anticoagulation Visit Coumadin [facility] [address] [place], [place] [id number] Wstr, Anticoag [facility] [place] [address] [place], [place] [address] inr Coumad[facility] Comment on above: inr Start: 08-15-2023 End: 11-14-2023 Basic metabolic 2000 panel - Serum or Plasma BASIC METABOLIC PANEL Lab Routine Encounter for therapeutic drug monitoring Expected: 08/15/2023, Expires: 11/14/2023 [facility] Work Phone: Comment on above: Expected: 08/15/2023, Expires: Start: 08-15-2023 End: 08-15-2023 Patient encounter procedure Radiology Comment on above: Right knee Right knee pain/swel ling Start: 08-13-2023 End: 08-13-2023 Patient encounter procedure 08/13/2023 9:20 AM EDT Office Visit Cardiology [address] [place] [address] William Messina, [address] [place] [address] annual Cardiology Comment on above: annual Start: 08-09-2023 End: 08-09-2023 Anticoagulant drug monitoring 08/09/2023 9:30 AM EDT Anticoagulation Visit [facility] [address] [place] [address] Wstr, Anticoag [facility] [place] [address] [place] [address] inr [facility] [place] Comment on above: inr Start: 07-26-2023 End: 07-26-2023 Anticoagulant drug monitoring 07/26/2023 9:30 AM EDT Anticoagulation Visit [facility] [place] [address] [place] [address] Wstr, Anticoag [facility] [place] [address] [place] [address] inr [facility] [place] Comment on above: inr Start: 07-21-2023 BP CONTROLLED (<130/80) BP CONTROLLED (<130/80) [facility] in Start: 07-12-2023 End: 07-12-2023 Anticoagulant drug monitoring 07/12/2023 9:00 AM EDT Anticoagulation Visit [facility] [place] [address] [place] [address] Wstr, Anticoag [facility] [place] [address] [place] [address] inr [facility] [place] Comment on above: inr Start: 07-11-2023 End: 07-11-2023 Patient encounter procedure 07/11/2023 12:00 PM EDT Office Visit [facility] [address] [place] [address] Acute pain of right knee [M25.561] [facility] Comment on above: Acute pain of right knee [M25.561] Start: 07-08-2023 DIABETES SCREEN DIABETES SCREEN [facility] Start: 07-08-2023 Diabetes Screening Diabetes Screening [facility] Start: 05-04-2023 Blood chemistry [facility] Start: 04-30-2023 Development of care plan [facility] Start: 04-30-2023 Patient discharge [facility] Start: 04-27-2023 Blood chemistry [facility] Start: 04-20-2023 Blood chemistry [facility] Start: 04-19-2023 Prothrombin time [facility] Start: 04-17-2023 Prothrombin time [facility] Start: 04-15-2023 Wound care [facility] Start: 04-10-2023 Consultation for treatment [facility] Start: 04-09-2023 Speech therapy management [facility] Start: 04-09-2023 Speech therapy assessment [facility] Start: 04-08-2023 [facility] Start: 04-08-2023 Inhalation therapy procedure [facility] Start: 04-06-2023 Development of care plan [facility] Start: 04-06-2023 Developing a treatment plan [facility] Start: 04-05-2023 Admission procedure [facility] Start: 04-05-2023 Measuring intake and output [facility] Start: 04-05-2023 Patient referral to dietitian [facility] Start: 04-05-2023 Referral to occupational therapist [facility] Start: 04-05-2023 Referral to service [facility] Start: 04-05-2023 Vital signs measurements [facility] Start: 04-05-2023 End: 04-05-2023 [facility] Start: 04-05-2023 Verification routine [facility] Start: 04-05-2023 Patient discharge [facility] Start: 04-05-2023 Prothrombin time [facility] Start: 04-04-2023 Application of intermittent pneumatic compression device [facility] Start: 04-04-2023 Application of intermittent pneumatic compression device [facility] Start: 04-04-2023 Consultation [facility] Start: 04-04-2023 Prothrombin time [facility] Start: 04-03-2023 Consultation [facility] Start: 04-03-2023 Prothrombin time [facility] Start: 04-02-2023 Prothrombin time [facility] Start: 04-01-2023 End: 07-01-2023 ALK PHOS ISOENZYM BL ALK PHOS ISOENZYM BL Lab Routine Elevated alkaline phosphatase level Expected: 04/01/2023, Expires: 07/01/2023 [facility] Work Phone: Comment on above: Expected: 04/01/2023, Expires: 4 Start: 04-01-2023 End: 07-01-2023 Comprehensive metabolic 2000 panel - Serum or Plasma COMP METABOLIC PANEL Lab Routine Hypoalbuminemia Elevated alkaline phosphatase level Elevated LFTs Expected: 04/01/2023, Expires: 07/01/2023 [facility] Work Phone: Comment on above: Expected: 04/01/2023, Expires: 4 Start: 04-01-2023 Application of elastic bandage [facility] Start: 04-01-2023 Administration of blood product [facility] Start: 04-01-2023 End: 07-01-2023 CBC W Auto Differential panel - Blood [facility] Comment on above: Expected: 04/01/2023, Expires: 4 Start: 04-01-2023 Magnesium [Mass/volume] in Serum or Plasma [facility] Start: 04-01-2023 Prothrombin time [facility] Start: 04-01-2023 [facility] Start: 04-01-2023 Inhalation therapy procedure [facility] Start: 03-31-2023 Following clinical pathway protocol [facility] Start: 03-31-2023 Ankle 2 Views Ankle 2 Views [facility] Start: 03-31-2023 Assessment of risk of venous thromboembolism [facility] Start: 03-31-2023 C reactive protein [Mass/volume] in Serum or Plasma [facility] Start: 03-31-2023 Consultation for treatment [facility] Start: 03-31-2023 Elevation of affected extremity [facility] Start: 03-31-2023 Erythrocyte sedimentation rate [facility] Start: 03-31-2023 Insertion of catheter into peripheral vein [facility] Start: 03-31-2023 Measuring intake and output [facility] Start: 03-31-2023 Providing care according to standard [facility] Start: 03-31-2023 Provision of activity privileges [facility] Start: 03-31-2023 Referral to occupational therapist [facility] Start: 03-31-2023 Referral to service [facility] Start: 03-31-2023 US Heart [facility] Start: 03-31-2023 US.doppler Lower extremity vein [facility] Start: 03-31-2023 XR Ankle 2 Views [facility] Start: 03-31-2023 [facility] Start: 03-31-2023 Verification routine [facility] Start: 03-31-2023 Admission procedure [facility] Start: 03-31-2023 Consultation [facility] Start: 03-31-2023 Patient referral to dietitian [facility] Start: 03-28-2023 [facility] Start: 03-28-2023 [facility] Start: 03-28-2023 Emergency department visit high/urgent severity [facility] Start: 03-27-2023 Patient discharge [facility] Start: 03-27-2023 [facility] Start: 03-27-2023 [facility] Start: 03-26-2023 Following clinical pathway protocol [facility] Start: 03-26-2023 Assessment of risk of venous thromboembolism [facility] Start: 03-26-2023 Incentive spirometry [facility] Start: 03-26-2023 Insertion of catheter into peripheral vein [facility] Start: 03-26-2023 Measuring intake and output [facility] Start: 03-26-2023 Providing care according to standard [facility] Start: 03-26-2023 Provision of activity privileges [facility] Start: 03-26-2023 Referral to occupational therapist [facility] Start: 03-26-2023 Referral to service [facility] Start: 03-26-2023 [facility] Start: 03-26-2023 Verification routine [facility] Start: 03-26-2023 Admission procedure [facility] Start: 03-26-2023 Hospital admission, emergency, from emergency room, medical nature [facility] Start: 03-26-2023 [facility] Start: 03-26-2023 Inhalation therapy procedure [facility] Start: 03-19-2023 Fresh frozen plasma [facility] Start: 03-19-2023 End: 03-19-2023 [facility] Start: 03-19-2023 Administration of blood product [facility] Start: 03-13-2023 ANNUAL PCP TEAM CHRONIC DISEASE VISIT ANNUAL PCP TEAM CHRONIC DISEASE VISIT [facility] Start: 03-13-2023 BP CONTROLLED (<130/80) BP CONTROLLED (<130/80) [facility] Start: 03-01-2023 Covid-19 Vaccine () Covid-19 Vaccine () [facility] Start: 02-19-2023 Advance Directive Discussion Advance Directive Discussion [facility] Start: 02-19-2023 Behavioral Health Screening Behavioral Health Screening [facility] Start: 02-19-2023 Depression Assessment Depression Assessment [facility] Start: 01-23-2023 End: 08-23-2023 Ct thorax w/o contrast material CT CHEST WO IVCON Radiology Routine Lung nodules Bronchiectasis without complication (HCC) Expected: 01/23/2023, Expires: 08/23/2023 [facility] Work Phone: Comment on above: Expected: 01/23/2023, Expires: Start: 11-29-2022 BP CONTROLLED (<130/80) BP CONTROLLED (<130/80) [facility] Start: 11-10-2022 Adult depression screening assessment DEPRESSION SCREENING [facility] Start: 10-20-2022 Covid-19 Vaccine () Covid-19 Vaccine () [facility] Start: 09-01-2023 Influenza vaccination INFLUENZA (#1) [facility] Start: 09-20-2022 BP CONTROLLED (<130/80) BP CONTROLLED (<130/80) [facility] Start: 09-05-2022 Mammography MAMMOGRAM [facility] Start: 07-11-2022 ANNUAL PCP TEAM CHRONIC DISEASE VISIT ANNUAL PCP TEAM CHRONIC DISEASE VISIT [facility] Start: 07-11-2022 BP CONTROLLED (<130/80) BP CONTROLLED (<130/80) [facility] Start: 03-14-2022 ANNUAL PCP TEAM CHRONIC DISEASE VISIT ANNUAL PCP TEAM CHRONIC DISEASE VISIT [facility] Start: 03-14-2022 BP CONTROLLED (<130/80) BP CONTROLLED (<130/80) [facility] Start: 02-19-2022 ADVANCE DIRECTIVE DISCUSSION ADVANCE DIRECTIVE DISCUSSION [facility] Start: 02-19-2022 DEPRESSION ASSESSMENT DEPRESSION ASSESSMENT [facility] Start: 01-05-2022 COVID-19 VACCINE (7 - Pfizer risk series) COVID-19 VACCINE (7 - Pfizer risk series) [facility] Start: 11-11-2021 COVID-19 VACCINE (5 - Booster for Pfizer series) COVID-19 VACCINE (5 - Booster for Pfizer series) [facility] Start: 11-10-2021 End: 01-10-2022 Alpha 1 antitrypsin [Mass/volume] in Serum or Plasma [id number] Lab Routine Chronic obstructive pulmonary disease, unspecified COPD type (HCC) Expected: 11/10/2021, Expires: 01/10/2022 [facility] Work Phone: Comment on above: Expected: 11/10/2021, Expires: 2 Start: 10-20-2021 Influenza vaccination INFLUENZA (#1) [facility] Start: 07-13-2021 Adult depression screening assessment DEPRESSION SCREENING [facility] Start: 06-01-2021 Mammography MAMMOGRAM [facility] Start: 02-19-2021 ADVANCE DIRECTIVE DISCUSSION ADVANCE DIRECTIVE DISCUSSION [facility] Start: 02-19-2021 DEPRESSION ASSESSMENT DEPRESSION ASSESSMENT [facility] Start: 02-08-2021 COVID-19 VACCINE (4 - Booster for Pfizer series) COVID-19 VACCINE (4 - Booster for Pfizer series) [facility] Start: 12-27-2020 LIPID SCREEN LIPID SCREEN [facility] Start: 08-04-2017 FECAL OCCULT BLOOD FECAL OCCULT BLOOD [facility] Start: 08-04-2017 Screening for malignant neoplasm of colon Fecal Occult Blood [facility] Start: 2007 RSV Vaccine (1 - 1-dose 60+ series) RSV Vaccine (1 - 1-dose 60+ series) [facility] Start: 05-29-1992 COLOGUARD (FIT-DNA) COLOGUARD (FIT-DNA) [facility] Start: 05-29-[address] COLONOGRAPHY [facility] Start: 05-29-1992 Screening for malignant neoplasm of colon [facility] Start: 05-29-1992 SIGMOIDOSCOPY SIGMOIDOSCOPY [facility] Start: 05-29-1977 Zoledronic acid therapy ALPHA-1 ANTITRYPSIN DEFICIENCY SCREENING [facility] Start: 05-29-1965 Anxiety Screening Anxiety Screening [facility] Start: 05-29-1965 BP CONTROLLED (<130/80) BP CONTROLLED (<130/80) [facility] Start: 05-29-1965 Depression Screening Depression Screening [facility] Alanine aminotransfe rase [Enzymatic activity/volume] in Serum or Plasma [facility] Albumin [Mass/volume ] in Serum or Plasma [facility] Alkaline phosphatase [Enzymatic activity/volume] in Serum or Plasma [facility] Anion gap in Serum o r Plasma [facility] Anion gap measurement [facility] Anion gap measurement [facility] Anion gap measurement [facility] Anion gap measurement [facility] Aspartate aminotransferase [Enzymatic activity/volume] in Serum or Plasma [facility] End: 08-21-2024 Basic metabolic 2000 panel - Serum or Plasma BASIC METABOLIC PANEL Lab Routine Encounter for long-term current use of medication 20 Occurrences starting 08/22/2023 until 08/21/2024 [facility] Work Phone: Comment on above: 20 Occurrences starting 08/22/2023 until 08/21/2024 Bilirubin measuremen t, urine [facility] Bilirubin, total measurement [facility] BUN/Creatinine ratio [facility] BUN/Creatinine ratio [facility] BUN/Creatinine ratio [facility] BUN/Creatinine ratio [facility] BUN/Creatinine ratio [facility] Calcium [Mass/volume ] in Serum or Plasma [facility] Calcium [Mass/volume ] in Serum or Plasma [facility] Calcium [Mass/volume ] in Serum or Plasma [facility] Calcium [Mass/volume ] in Serum or Plasma [facility] Calcium [Mass/volume ] in Serum or Plasma [facility] Carbon dioxide, tota l [Moles/volume] in Central venous blood [facility] Carbon dioxide, tota l [Moles/volume] in Serum or Plasma [facility] Carbon dioxide, tota l [Moles/volume] in Serum or Plasma [facility] Carbon dioxide, tota l [Moles/volume] in Serum or Plasma [facility] Carbon dioxide, tota l [Moles/volume] in Serum or Plasma [facility] CARDIAC REHAB II OUT PT ([place], [place]) CARDIAC REHAB II OUTPT ([place], [place]) BIC Routine Nonrheumatic aortic valve 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) Ordered: 05/05/2024 [facility] Work Phone: Comment on above: Ordered: 05/05/2024 Chloride [Moles/volu me] in Serum or Plasma [facility] Chloride [Moles/volu me] in Serum or Plasma [facility] Chloride [Moles/volu me] in Serum or Plasma [facility] Chloride [Moles/volu me] in Serum or Plasma [facility] Creatinine [Mass/vol ume] in Serum or Plasma [facility] Creatinine [Moles/volume] in Serum or Plasma [facility] Creatinine [Moles/volume] in Serum or Plasma [facility] Creatinine [Moles/volume] in Serum or Plasma [facility] Creatinine [Moles/volume] in Serum or Plasma [facility] CT Chest WO contrast CT CHEST WO IVCON Radiology Routine Disseminated histoplasmosis 08/30/2023 2:07 PM EDT [facility] Work Phone: End: 09-26-2024 CT Chest WO contrast CT CHEST WO IVCON Radiology Routine Disseminated histoplasmosis 1 Occurrences starting 08/28/2023 until 09/26/2024 [facility] Comment on above: 1 Occurrences starting 08/28/2023 until 09/26/2024 End: 12-29-2022 Ct thorax w/o contrast material CT CHEST WO IVCON Radiology Routine Lung nodules 1 Occurrences starting 11/29/2021 until 12/29/2022 [facility] Work Phone: Comment on above: 1 Occurrences starting 11/29/2021 until 12/29/2022 End: 02-06-2025 CTA Chest vessels and Abdominal vessels and Pelvis vessels W contrast IV CTA CHEST/ABD/PEL (GATED) W IVCON Radiology Routine Nonrheumatic aortic valve stenosis Encounter for preprocedural cardiovascular examination 1 Occurrences starting 01/08/2024 until 02/06/2025 [facility] Comment on above: 1 Occurrences starting 01/08/2024 until 02/06/2025 End: 08-12-2022 ECG COMPLETE ECG COMPLETE ECG Routine Aortic stenosis with bicuspid valve Essential hypertension 1 Occurrences starting 08/12/2021 until 08/12/2022 [facility] Work Phone: Comment on above: 1 Occurrences starting 08/12/2021 until 08/12/2022 End: 01-07-2025 ECG COMPLETE ECG COMPLETE ECG Routine Nonrheumatic aortic valve stenosis Aortic valve disorder 1 Occurrences starting 01/08/2024 until 01/07/2025 [facility] Comment on above: 1 Occurrences starting 01/08/2024 until 01/07/2025 End: 04-15-2025 ECG COMPLETE ECG COMPLETE ECG Routine Nonrheumatic aortic valve stenosis Aortic valve disorder 1 Occurrences starting 04/15/2024 until 04/15/2025 [facility] Work Phone: Comment on above: 1 Occurrences starting 04/15/2024 until 04/15/2025 End: 05-02-2025 ECG COMPLETE ECG COMPLETE ECG Routine Nonrheumatic aortic valve stenosis 1 Occurrences starting 05/02/2024 until 05/02/2025 [facility] Work Phone: Comment on above: 1 Occurrences starting 05/02/2024 until 05/02/2025 End: 08-26-2024 ECHO LIMITED ECHO LIMITED Cardiology Routine Nonrheumatic aortic valve stenosis Mitral valve stenosis, non-rheumatic Essential hypertension Pericardial effusion (noninflammatory) 1 Occurrences starting 08/27/2023 until 08/26/2024 [facility] [facility] Work Phone[facility] Comment on above: 1 Occurrences starting 08/27/2023 until 08/26/2024 End: 08-12-2022 Echocardiography ECHO Cardiology Routine Aortic stenosis with bicuspid valve Essential hypertension 1 Occurrences starting 08/12/2021 until 08/12/2022 [facility] Work Phone: Comment on above: 1 Occurrences starting 08/12/2021 until 08/12/2022 End: 08-30-2023 Echocardiography ECHO Cardiology Routine Aortic stenosis with bicuspid valve 1 Occurrences starting 08/29/2022 until 08/30/2023 [facility] Work Phone: Comment on above: 1 Occurrences starting 08/29/2022 until 08/30/2023 End: 01-07-2025 Echocardiography ECHO Cardiology Routine Nonrheumatic aortic valve stenosis Aortic valve disorder 1 Occurrences starting 01/08/2024 until 01/07/2025 [facility] Comment on above: 1 Occurrences starting 01/08/2024 until 01/07/2025 Erythrocyte mean corpuscular volume determination [facility] Erythrocyte mean corpuscular volume determination [facility] Glucose [Mass/volume ] in Serum or Plasma [facility] Glucose [Mass/volume ] in Serum or Plasma [facility] Glucose [Mass/volume ] in Serum or Plasma [facility] Glucose [Mass/volume ] in Serum or Plasma [facility] Glucose [Mass/volume ] in Serum or Plasma [facility] Hematocrit [Volume Fraction] of Blood [facility] Hematocrit [Volume Fraction] of Blood [facility] Hemoglobin [Mass/vol ume] in Blood [facility] Hemoglobin [Mass/vol ume] in Blood [facility] Hemoglobin [Presence ] in Urine [facility] Histoplasma capsulat um Ab [Presence] in Serum by Immune diffusion (ID) HISTOPLASMA AB ID Lab Routine Disseminated histoplasmosis Encounter for long-term (current) use of antibiotics 08/30/2023 1:14 PM EDT [facility] INR in Blood by Coagulation assay [facility] INR in Blood by Coagulation assay [facility] INR in Blood by Coagulation assay [facility] INR in Blood by Coagulation assay [facility] INR in Blood by Coagulation assay [facility] INR in Blood by Coagulation assay [facility] INR in Blood by Coagulation assay [facility] INR in Blood by Coagulation assay [facility] INR in Blood by Coagulation assay [facility] INR in Blood by Coagulation assay [facility] INR in Blood by Coagulation assay [facility] End: 10-27-2022 INR in Platelet poor plasma by Coagulation assay INR (POC) Lab Routine Personal history of DVT (deep vein thrombosis) Once per month for 99 Occurrences starting 11/09/2021 until 10/27/2022 [facility] Work Phone: Comment on above: Once per month for 99 Occurrences starti ng 11/09/2021 until 10/27/2022 End: 11-10-2023 INR in Platelet poor plasma by Coagulation assay INR (POC) Lab Routine Personal history of DVT (deep vein thrombosis) Once per month for 99 Occurrences starting 11/09/2022 until 11/10/2023 [facility] Work Phone: Comment on above: Once per month for 99 Occurrences starti ng 11/09/2022 until 11/10/2023 End: 11-14-2024 INR in Platelet poor plasma by Coagulation assay INR (POC) Lab Routine Personal history of DVT (deep vein thrombosis) Once per month for 99 Occurrences starting 11/15/2023 until 11/14/2024 [facility] Work Phone: Comment on above: Once per month for 99 Occurrences starti ng 11/15/2023 until 11/14/2024 Leukocytes [#/volume ] in Blood [facility] Leukocytes [#/volume ] in Blood [facility] End: 03-14-2022 LIPID PANEL BASIC LIPID PANEL BASIC Lab Routine Essential hypertension 1 Occurrences starting 03/14/2021 until 03/14/2022 [facility] Work Phone: Comment on above: 1 Occurrences starting 03/14/2021 until 03/14/2022 End: 02-06-2025 LUNG DIFFUSION CAPACITY (DLCO) LUNG DIFFUSION CAPACITY (DLCO) PFT Routine Nonrheumatic aortic valve stenosis 1 Occurrences starting 01/08/2024 until 02/06/2025 [facility] Comment on above: 1 Occurrences starting 01/08/2024 until 02/06/2025 LUNG DIFFUSION CAPAC ITY (DLCO) LUNG DIFFUSION CAPACITY (DLCO) PFT Routine Nonrheumatic aortic valve stenosis 03/25/2024 9:28 AM EST [facility] Work Phone: End: 11-26-2023 SABINO SCREENING SABINO SCREENING Radiology Routine Encounter for screening mammogram for breast cancer 1 Occurrences starting 10/27/2022 until 11/26/2023 [facility] Work Phone: Comment on above: 1 Occurrences starting 10/27/2022 until 11/26/2023 End: 11-26-2023 SABINO SCREENING W ALIZE SABINO SCREENING W ALIZE Radiology Routine Encounter for screening mammogram for breast cancer 1 Occurrences starting 10/27/2022 until 11/26/2023 [facility] Work Phone: Comment on above: 1 Occurrences starting 10/27/2022 until 11/26/2023 Mean corpuscular hemoglobin concentration determination [facility] Mean corpuscular hemoglobin concentration determination [facility] Mean corpuscular hemoglobin determination [facility] Mean corpuscular hemoglobin determination [facility] Measurement of keton es in urine using dipstick [facility] Measurement of renal function [facility] Measurement of renal function [facility] Measurement of renal function [facility] Measurement of renal function [facility] Measurement of renal function [facility] Microscopic urinalysis [facility] Microscopic urinalysis [facility] Neutrophil count [facility] Neutrophil count [facility] Neutrophil percent differential count [facility] Neutrophil percent differential count [facility] Organism count, microscopic method [facility] Patient Education [facility] Work Phone: Patient referral [facility] Work Phone: pH of Urine [facility] Platelets [#/volume] in Blood [facility] Platelets [#/volume] in Blood [facility] Potassium [Moles/vol ume] in Serum or Plasma [facility] Potassium [Moles/vol ume] in Serum or Plasma [facility] Potassium [Moles/vol ume] in Serum or Plasma [facility] Potassium [Moles/vol ume] in Serum or Plasma [facility] Potassium measurement [facility] Prothrombin time [facility] End: 10-27-2022 PT panel - Platelet poor plasma by Coagulation assay PROTHROMBIN TIME/PT Lab STAT Personal history of DVT (deep vein thrombosis) Once per month for 99 Occurrences starting 11/09/2021 until 10/27/2022 [facility] Work Phone: Comment on above: Once per month for 99 Occurrences starti ng 11/09/2021 until 10/27/2022 End: 11-09-2023 PT panel - Platelet poor plasma by Coagulation assay PROTHROMBIN TIME/PT Lab STAT Personal history of DVT (deep vein thrombosis) Once per month for 99 Occurrences starting 11/09/2022 until 11/09/2023 [facility] Work Phone: Comment on above: Once per month for 99 Occurrences starti ng 11/09/2022 until 11/09/2023 End: 11-14-2024 PT panel - Platelet poor plasma by Coagulation assay PROTHROMBIN TIME Lab STAT Personal history of DVT (deep vein thrombosis) Once per month for 99 Occurrences starting 11/15/2023 until 11/14/2024 [facility] Comment on above: Once per month for 99 Occurrences starti ng 11/15/2023 until 11/14/2024 Red blood cell count [facility] Red blood cell count [facility] Red cell distributio n width determination [facility] Red cell distributio n width determination [facility] Serum chloride measurement [facility] Sodium [Moles/volume ] in Serum or Plasma [facility] Sodium [Moles/volume ] in Serum or Plasma [facility] Sodium [Moles/volume ] in Serum or Plasma [facility] Sodium [Moles/volume ] in Serum or Plasma [facility] Sodium measurement [facility] Specific gravity of Urine [facility] End: 02-06-2025 SPECT Heart for infarct W Tc-99m PYP IV NM SPECT/CT CARDIAC AMYLOID Radiology Routine Nonrheumatic aortic valve stenosis 1 Occurrences starting 01/08/2024 until 02/06/2025 [facility] Comment on above: 1 Occurrences starting 01/08/2024 until 02/06/2025 End: 02-06-2025 SPIROMETRY BASELINE ONLY SPIROMETRY BASELINE ONLY PFT Routine Nonrheumatic aortic valve stenosis 1 Occurrences starting 01/08/2024 until 02/06/2025 [facility] Work Phone: Comment on above: 1 Occurrences starting 01/08/2024 until 02/06/2025 SPIROMETRY BASELINE ONLY SPIROME TRY BASELINE ONLY PFT Routine Nonrheumatic aortic valve stenosis 03/25/2024 9:28 AM EST [facility] Work Phone: Total protein measurement [facility] Urea nitrogen [Mass/volume] in Serum or Plasma [facility] Urea nitrogen [Mass/volume] in Serum or Plasma [facility] Urea nitrogen [Mass/volume] in Serum or Plasma [facility] Urea nitrogen [Mass/volume] in Serum or Plasma [facility] Urea nitrogen [Mass/volume] in Serum or Plasma [facility] Urinalysis, blood, qualitative [facility] Urine dipstick for glucose [facility] Urine dipstick for leukocyte esterase [facility] Urine dipstick for nitrite [facility] Urine dipstick for protein [facility] Urine examination [facility] Urine microscopy: epithelial cells [facility] Urine microscopy: epithelial cells [facility] Urine microscopy: re d cells [facility] Urine Microscopy: wh ite cells [facility] Urobilinogen [Presen ce] in Urine [facility] End: 07-09-2024 US Lower extremity vein US LEG VEIN DVT [facility] Vascular Lab STAT Acute pain of right knee Pain and swelling of right lower leg 1 Occurrences starting 07/10/2023 until 07/09/2024 [facility] Work Phone: Comment on above: 1 Occurrences starting 07/10/2023 until 07/09/2024 White blood cell count [facility] End: 02-06-2025 XR Chest PA and Lateral XR CHEST 2V FRONTAL/LAT Radiology Routine Nonrheumatic aortic valve stenosis 1 Occurrences starting 01/08/2024 until 02/06/2025 [facility] Comment on above: 1 Occurrences starting 01/08/2024 until 02/06/2025 End: 05-15-2025 XR Chest PA and Lateral XR CHEST 2V FRONTAL/LAT Radiology Routine Nonrheumatic aortic valve stenosis Aortic valve disorder 1 Occurrences starting 04/15/2024 until 05/15/2025 [facility] Comment on above: 1 Occurrences starting 04/15/2024 until 05/15/2025 End: 08-16-2024 XR Knee - right 4 Views XR KNEE GENERAL 4V AP BOTH/PA BOTH/LAT/MERC RIGHT Radiology Routine Right knee pain, unspecified chronicity 1 Occurrences starting 07/18/2023 until 08/16/2024 [facility] Work Phone: Comment on above: 1 Occurrences starting 07/18/2023 until 08/16/2024 End: 08-16-2024 XR Lower extremity - bilateral AP W standing XR LEG FRONTAL HIP TO ANKLE MECHANICAL AXIS Radiology Routine Right knee pain, unspecified chronicity 1 Occurrences starting 07/18/2023 until 08/16/2024 [facility] Comment on above: 1 Occurrences starting 07/18/2023 until 08/16/2024 [facility] Immunizations Immunization Date Immunization Notes Care Provider [facility] 11-22-2023 influenza, high dose seasonal, preservative-free Geno Hart MD Work Phone: [facility] 11-22-2023 influenza virus vacc ine, unspecified formulation Geno Hart MD Work Phone: [facility] 08-01-2023 respiratory syncytia l virus (RSV) vaccine, adjuvanted (AREXVY) Ilda Miller RN Work Phone: [facility] 08-01-2023 zoster vaccine recombinant Claudine Durán MD Work Phone: [facility] 01-04-2023 COVID-19 vaccine, ag e 12+ yr, season (PFIZER-BIONTECH) Jimbo Swanson APRN.AMUSEMENT RIDE OPERATOR Work Phone: [facility] Work Phone: 10-27-2022 influenza (HD-IIV4) vaccine, age 65+ yr, high dose, quadrivalent, PF (FLUZONE HIGH-DOSE) Jimbo Swanson APRN.AMUSEMENT RIDE OPERATOR Work Phone: [facility] Work Phone: 10-27-2022 influenza virus vacc ine, unspecified formulation [facility] 11-18-2021 influenza, high dose seasonal, preservative-free Ilda Miller RN Work Phone: [facility] 11-10-2021 COVID-19 booster vaccine, age 12+ yr, bivalent (PFIZER-BIONTECH) Jimbo Swanson APRN.AMUSEMENT RIDE OPERATOR Work Phone: [facility] Work Phone: 11-10-2021 influenza, high-dose , quadrivalent vaccine (FLUZONE HIGH DOSE QUADRIVALENT) Jimbo Swanson APRN.AMUSEMENT RIDE OPERATOR Work Phone: [facility] Work Phone: 07-11-2021 Covid (Pfizer) Dr. Claudine Martinez [facility] Work Phone: [facility] 07-11-2021 COVID-19 vaccine, ag e 12+ yr (PFIZER-BIONTECH - ARIAS TOP) [facility] Work Phone: [facility] 11-21-2020 COVID-19 original vaccine, age 12+ yr, monovalent (PFIZER-BIONTECH - PURPLE TOP) Claudine Durán MD Work Phone: [facility] 11-21-2020 influenza, high dose seasonal, preservative-free Ilda Miller RN Work Phone: [facility] 11-09-2020 COVID-19 vaccine, ag e 12+ yr (PFIZER-BIONTECH - PURPLE TOP) [facility] 11-09-2020 influenza, high-dose , quadrivalent vaccine (FLUZONE HIGH DOSE QUADRIVALENT) [facility] Work Phone: 05-13-2020 COVID-19 vaccine, ag e 12+ yr (PFIZER-BIONTECH - PURPLE TOP) [facility] Work Phone: 04-22-2020 COVID-19 vaccine, ag e 12+ yr (PFIZER-BIONTECH - PURPLE TOP) [facility] Work Phone: 11-06-2019 influenza, high-dose , quadrivalent vaccine (FLUZONE HIGH DOSE QUADRIVALENT) [facility] Work Phone: 11-06-2019 tetanus and diphther ia toxoids, adsorbed, preservative free, for adult use (2 Lf of tetanus toxoid and 2 Lf of diphtheria toxoid) Dr. Claudine Durán Work Phone: [facility] 11-06-2019 tetanus and diphther ia toxoids, adsorbed, preservative free, for adult use (5 Lf of tetanus toxoid and 2 Lf of diphtheria toxoid) [facility] Work Phone: 11-03-2019 influenza, high dose seasonal, preservative-free Ilda Miller RN Work Phone: [facility] 11-28-2018 zoster vaccine recombinant [facility] 11-25-2018 influenza, high dose seasonal, preservative-free Ilda Miller RN Work Phone: [facility] 10-26-2018 Influenza, high dose seasonal Dr. Claudine Durán MD Work Phone: [facility] 10-26-2018 influenza, high dose seasonal, preservative-free [facility] 07-23-2018 zoster vaccine recombinant [facility] 11-27-2017 Influenza, high dose seasonal Dr. Claudine Durán MD Work Phone: [facility] 11-27-2017 influenza, high dose seasonal, preservative-free [facility] 02-07-2017 influenza virus vacc ine, live, attenuated, for intranasal use Ilda Miller RN Work Phone: [facility] 02-07-2017 pneumococcal polysaccharide vaccine, 23 ravi Durán MD Work Phone: [facility] 01-31-2017 Influenza, high dose seasonal Dr. Claudine Durán MD Work Phone: [facility] 01-31-2017 influenza, high dose seasonal, preservative-free [facility] 12-13-2016 pneumococcal polysaccharide vaccine, Lachelle Durán MD Work Phone: [facility] 11-28-2016 pneumococcal polysaccharide vaccine, Lachelle Durán MD Work Phone: [facility] 12-13-2015 influenza, high dose seasonal, preservative-free [facility] 11-10-2014 Influenza, high dose seasonal Dr. Claudine Durán MD Work Phone: [facility] 11-10-2014 influenza, high dose seasonal, preservative-free [facility] 03-30-2014 pneumococcal conjuga te vaccine, 13 valent [facility] 12-08-2013 influenza virus vacc ine, live, attenuated, for intranasal use Ilda Miller RN Work Phone: [facility] 12-08-2013 pneumococcal conjuga te vaccine, 7 valent Ilda Miller RN Work Phone: [facility] 12-08-2013 pneumococcal polysaccharide vaccine, 23 valrandall Durán MD Work Phone: [facility] 11-24-2013 influenza, injectabl e, quadrivalent, preservative free Dr. Claudine Durán Work Phone: [facility] 11-24-2013 influenza, seasonal, injectable [facility] 03-24-2013 pneumococcal polysaccharide vaccine, 23 valent [facility] 11-18-2012 influenza virus vacc ine, unspecified formulation [facility] Work Phone: 11-10-2011 influenza virus vacc ine, unspecified formulation [facility] 11-23-2010 influenza virus vacc ine, unspecified formulation [facility] 10-07-2009 tetanus toxoid, redu amarilis diphtheria toxoid, and acellular pertussis vaccine, adsorbed [facility] 10-29-2008 influenza virus vacc ine, unspecified formulation [facility] 01-10-2008 influenza virus vacc ine, whole virus Ilda Miller RN Work Phone: [facility] 01-10-2008 influenza, injectabl e, quadrivalent, preservative free Dr. Claudine Durán Work Phone: [facility] 07-09-2007 tuberculin skin test ; purified protein derivative solution, intradermal Jimbo Swanson DIGITAL COMMUNICATIONS MANAGER.AMUSEMENT RIDE OPERATOR Work Phone: [facility] 06-24-2007 tuberculin skin test ; purified protein derivative solution, intradermal Jimbo Swanson DIGITAL COMMUNICATIONS MANAGER.AMUSEMENT RIDE OPERATOR Work Phone: [facility] 09-22-1999 diphtheria and tetan us toxoids, adsorbed for pediatric use [facility] Work Phone: Payers Date Payer Category Payer Self-pay [id number] 2021 Medicare AETNA MEDICARE A ETNA MEDICARE PPO [id number] 2021-Present [phone] [address] [place] [address] PPO [id number] 2021 Medicare AETNA MEDICARE A ETNA MEDICARE PPO [id number] 2021-Present [phone] [address] [place] [address] PPO [id number] 2021 Medicare (Managed Care) AETNA [place] DICARE [id number] 2021 Private Health Insurance [facility] [id number] 2011 Unknown [id number] 1945 Unknown [id number] 2.840.1.308721.3.579.2. 668 Medicare [id number] Private Health Insurance Unknown [id number] 2.16840.1.958216.3.579.2. 462 Unknown [id number] 2.16840.1.041700.3.579.2. 462 Unknown [id number] 2.16840.1.041146.3.579.2. 462 Unknown [id number] 2.16840.1.274799.3.579.2. 462 Unknown [id number] 2.16840.1.688704.3.579.2. 462 Unknown [id number] 2.16.840.1.547479.3.579.2. 462 Unknown [id number] 2.16.840.1.114173.3.579.2. 462 Unknown [id number] 2.16.840.1.273203.3.579.2. 462 Unknown [id number] 2.16840.1.796243.3.579.2. 462 Unknown [id number] 2.16.840.1.221566.3.579.2. 462 Unknown [id number] 2.840.1.073399.3.579.2. 462 Unknown [id number] 2.840.1.063470.3.579.2. 462 Unknown [id number] 2.840.1.638643.3.579.2. 462 Unknown [id number] 2.840.1.302570.3.579.2. 462 Unknown [id number] 2.840.1.137763.3.579.2. 462 Unknown [id number] 2.840.1.803193.3.579.2. 462 Unknown [id number] 2.840.1.289791.3.579.2. 462 Unknown [id number] 2.840.1.326075.3.579.2. 462 Unknown [id number] 2.840.1.148568.3.579.2. 462 Unknown [id number] 2.840.1.243495.3.579.2. 462 Unknown [id number] 2.840.1.337625.3.579.2. 462 Unknown [id number] 2.840.1.034221.3.579.2. 462 Unknown [id number] 2.840.1.277446.3.579.2. 462 Unknown [id number] 2.16.840.1.594956.3.579.2. 462 Unknown [id number] 2.16.840.1.885209.3.579.2. 462 Unknown [id number] 2.16.840.1.287169.3.579.2. 462 Unknown [id number] 2.16.840.1.193329.3.579.2. 462 Unknown [id number] 2.16.840.1.564368.3.579.2. 462 Unknown [id number] 2.16.840.1.786910.3.579.2. 462 Unknown [id number] 2.16.840.1.400954.3.579.2. 462 Unknown [id number] 2.16.840.1.856923.3.579.2. 462 Unknown [id number] 2.16.840.1.790141.3.579.2. 462 Unknown [id number] 2.16.840.1.123545.3.579.2. 462 Unknown [id number] 2.16.840.1.743417.3.579.2. 462 Social History Date Type Detail Facility Start: 08-28-2019 End: 10-11-2023 Tobacco smoking status NHIS Ex-smoker [facility] Start: 02-19-1979 End: 02-19-1989 History of tobacco use Current smoker [facility] Start: 02-19-1979 End: 02-19-1989 History of tobacco use Cigarette Smoker [facility] Start: 05-03-2021 End: 07-22-2024 Alcohol intake Current drinker of alcohol (finding) [facility] Start: 11-28-2019 End: 03-06-2022 History SDOH Alcohol Frequency 2 [facility] Start: 11-28-2019 End: 03-06-2022 History SDOH Alcohol Std Drinks 1 [facility] Start: 03-31-2019 End: 03-06-2022 History SDOH Social Connections [facility] 3 [facility] Start: 03-31-2019 End: 03-06-2022 History SDOH Social Connections [facility] 4 [facility] Start: 07-28-2019 End: 03-06-2022 History SDOH Physical Activity DPW 5 [facility] Start: 03-31-2019 Education 18 [facility] Start: 08-28-2019 End: 11-10-2021 Tobacco Comment Late heavy smoker. [facility] Start: 1945 Sex Assigned At Female [facility] Start: 05-02-2021 End: 12-31-2021 Exposure to SARS-CoV-2 (event) Not sure [facility] Work Phone: Start: 12-11-2017 End: 04-05-2023 Tobacco smoking status PAIS Unknown if ever smoked [facility] Start: 08-28-2019 End: 06-22-2022 Cigarettes smoked current (pack per day) - Reported 1 [facility] Start: 08-28-2019 End: 10-11-2023 Tobacco use and exposure Smokeless tobacco non-user [facility] Start: 03-06-2022 End: 06-22-2022 Social connection and isolation panel [facility] Do you belong to any clubs or organizations such as hoahaoism groups, unions, fraternal or athletic groups, or school groups? Yes [facility] Are you now , , , , never or living with a partner? [facility] How often to you hav e a drink containing alcohol? Monthly or less [facility] How many standard dr inks containing alcohol do you have on a typical day? 1 or 2 [facility] How often do you hav e 6 or more drinks on 1 occasion? Never [facility] Start: 01-21-2012 How hard is it for you to pay for the very basics like food, housing, medical care, and heating Not hard at all [facility] Do you feel stress - tense, restless, nervous, or anxious, or unable to sleep at night because your mind is troubled all the time - these days [OSQ] Not at all [facility] (I/We) worried eileen er (my/our) food would run out before (I/we) got money to buy more. Never true [facility] In the past 12 month s, was there a time when you were not able to pay the mortgage or rent on time? No [facility] Start: 03-04-2019 Gender identity Identifies as female gender (finding) [facility] Start: 03-04-2019 Sexual orientation Heterosexual (finding) [facility] Do you feel stress - tense, restless, nervous, or anxious, or unable to sleep at night because your mind is troubled all the time - these days [OSQ] To some extent [facility] How hard is it for y ou to pay for the very basics like food, housing, medical care, and heating Not very hard [facility] Start: 2024 Sex Female (finding) [facility] Medical Equipment Procedure Code Equipment Code Equipment Origin al Text Equipment Identifier Dates Navitor With Radiopaque Markers, 25mm - [id number] Start: 05-02-2024 Goals Date Patient Goal [...] Assessment Result Facility 08-27-2024 Functional status Ambulates [facility] Work Phone: 08-23-2024 Functional status Up ad rupal [facility] Work Phone: 05-03-2024 Are you deaf, or do you have serious difficulty hearing No 05/03/2024 11:03 AM Doreen Kohler, PAULA No [facility] 05-03-2024 Are you blind, or do you have serious difficulty seeing, even when wearing glasses No 05/03/2024 11:03 AM Doreen Kohler, PAULA No [facility] 05-03-2024 Do you have serious difficulty walking or climbing stairs No 05/03/2024 11:03 AM Doreen Kohler, PAULA No [facility] 05-03-2024 Do you have difficul ty dressing or bathing No 05/03/2024 11:03 AM Doreen Kohler, PAULA No [facility] 05-03-2024 Because of a physica l, mental, or emotional condition, do you have difficulty doing errands alone such as visiting a physician's office or shopping No 05/03/2024 11:03 AM Doreen Kohler, PAULA No [facility] 03-24-2024 Are you deaf, or do you have serious difficulty hearing No 03/24/2024 3:46 PM Karl Browne RN No [facility] 03-24-2024 Are you blind, or do you have serious difficulty seeing, even when wearing glasses No 03/24/2024 3:46 PM Karl Browne RN No [facility] 03-24-2024 Do you have serious difficulty walking or climbing stairs No 03/24/2024 3:46 PM Karl Browne RN No [facility] 03-24-2024 Do you have difficul ty dressing or bathing No 03/24/2024 3:46 PM Karl Browne RN No [facility] 03-24-2024 Because of a physica l, mental, or emotional condition, do you have difficulty doing errands alone such as visiting a physician's office or shopping No 03/24/2024 3:46 PM Karl Browne RN No [facility] 04-30-2023 Functional status Ambulates;Bedr est;Bathro om [facility] Work Phone: 04-16-2023 Functional status Ambulates [facility] Work Phone: 04-05-2023 Functional status Ambulates;Bath room [facility] Work Phone: 03-27-2023 Functional status Up ad rupal [facility] Work Phone: Mental Status Date Assessment Result Facility 08-27-2024 Cognitive function Voice/Name [facility] Work Phone: 08-23-2024 Cognitive function Voice/Name [facility] Work Phone: 05-03-2024 Because of a physica l, mental, or emotional condition, do you have serious difficulty concentrating, remembering, or making decisions No 05/03/2024 11:03 AM Doreen Kohler RN No [facility] 03-24-2024 Because of a physica l, mental, or emotional condition, do you have serious difficulty concentrating, remembering, or making decisions No 03/24/2024 3:46 PM Karl Browne RN No [facility] 04-30-2023 Cognitive function Voice/Name [facility] Work Phone: 04-24-2023 Cognitive function Appropriate [facility] Work Phone: 04-16-2023 Cognitive function Voice/Name;Touch/Shaki ng [facility] Work Phone: 04-05-2023 Cognitive function Voice/Name [facility] Work Phone: 03-31-2023 Cognitive function Level Of Cons ciousness Awake;Alert;Appropriate;Fol lows Commands [facility] Work Phone: 03-27-2023 Cognitive function Appropriate;Cooperativ e [facility] Work Phone: 03-26-2023 Cognitive function Voice/Name [facility] Work Phone: Clinical Notes 03-08-2018 to [...] he had any questions. Muna Porter RN [facility] 10-24-2024 Miscellaneous Notes Called and left [...] Muna Porter, RN documented in this encounter [facility] 10-24-2024 Telephone encounter Note OK, please let him know [facility] 10-24-2024 Instructions Claudine Durán MD - 10/24/2024 2:20 PM EDT - Refill your warfarin (Coumadin) 6 mg daily. A 90-day supply of 5 mg and 1 mg tablets with refills has been sent to [facility]. - Refill your methotrexate: take 4 tablets every Sunday. A 60-tablet supply with refills has been sent to [facility]. - Schedule a Reclast (zoledronic acid) infusion [...] and functional use. documented in this encounter [facility] 10-24-2024 History of Presen t illness [...] the floor. She was subsequently hospitalized at [facility]. She sustained a skin tear on [...] of a discectomy and laminectomy at the [facility]. She also has a history of [...] participating in social activities, such as attending hoahaoism and theater performances. PAST MEDICAL HISTORY Diagnosis [...] factor (HCC) 03/07/2015 Dr. Hurley ([facility]) Tricuspid regurgitation Current Outpatient Medications Medication Sig [...] FOLIC ACID ORAL Take by mouth. vit A,C,X-Ossc-Uarmxx (OCUVITE PRESERVISION) 2,148 mcg-113 mg-45 mg-17.4mg tab [...] further rehabilitation. Claudine Durán MD Recording using [employer] software for draft documentation of the visit was discussed with the patient/authorized termite control representative; all questions welcomed and answered. Patient/authorized termite control representative agreed to proceed documented in this encounter [facility] 10-23-2024 Telephone encounter Note Misbah PT with [facility] called in asking for verbal orders for OT. He would like them to evaluate the Pt for upper extremity strength and ADLs. His VM is confidential and you can leave a VM. Muna Porter RN [facility] 10-19-2024 Telephone encounter Note Received page from Home Care Nurse for this patient. Pt was reportedly discharged from nursing home a few days ago and there was [...] and she can speak with [facility] nurse operations intelligence superintendent to relay same recommendation. Dr. Russ Velasquez DO [facility] Work Phone: 10-19-2024 Miscellaneous Notes Received page from Home Care Nurse for this patient. Pt was reportedly discharged from nursing home a few days ago and there was [...] and she can speak with [facility] nurse operations intelligence superintendent to relay same recommendation. Dr. Russ Velasquez DO documented in this encounter [facility] 10-19-2024 Radiology Diagnostic study note [facility] 10-19-2024 Radiology Diagnostic study note [facility] 10-16-2024 Telephone encounter Note Meseret from [employer] returned call and went over notes below from Jimbo Swanson [employer] SALESPERSON with understanding. [facility] 10-16-2024 Miscellaneous Notes Meseret from [facility] returned call and went over notes below from Jimbo Swanson [employer] SALESPERSON with understanding. Yes, please let home health care know Meseret from [facility] calling patient is discharging from SNF today to home. Received orders for nursing home, PT/OT, patient has fracture left radius, had shingles. Asking if PCP would follow patient and sign orders? Can leave message secure voicemail. Please advise documented in this encounter [facility] 10-16-2024 Telephone encounter Note Yes, please let home health care know [facility] 10-16-2024 Telephone encounter Note Meseret from [facility] calling patient is discharging from SNF today to home. Received orders for nursing home, PT/OT, patient has fracture left radius, had shingles. Asking if PCP would follow patient and sign orders? Can leave message secure voicemail. Please advise [facility] 08-27-2024 Discharge summary Note Date/Time August 27, 2024 12:09pm [facility] Medical Records Department [address] [place] [address] Transfer to Extended Care MR#: [id number] Acct: [id number] Name: HAYDEE BUSTAMANTE Rep #:[id number] : 1945 79 From: Jasmyn Chan DO PCP: Dr. Claudine Durán MD Status:AD Doretha ADAIR Certification of patient admission REQUIRED AT TIME OF ADMISSION. I CERTIFY THAT POST-HOSPITAL ECF SERVICES ARE REQUIRED TO BE GIVEN ON AN IN-PATIENT BASIS BECAUSE OF THE ABOVE NAMED PATIENT'S NEED FOR FPC CARE ON A CONTINUING BASIS FOR THE [...] PO QDAY Qty: 30 11RF Discontinued omega 8-ynl-glc-fish oil [Fish Oil] 1,200 (144-216) mg capsule 1 cap PO DAILY Patient Comments: ON HOLD FOR COLONOSCOPY Referrals / Follow Up: Claudine Durán MD [Primary Care Provider] - Burak Amanda MD [Med Staff - Active Staff] - See Referral Note (in one week-call to schedule appointment) Disposition Disposition (needs filled in before D/C Order can be placed): Care Home Facility 08/27/24 1209 <Electronically signed by Jasmyn Chan DO> Cosigner Signature (if applicable): CC: Dr. Claudine Durán MD; Dr. Erasmo House MD; Dr. Burak Amanda MD ~ [facility] Work Phone: 1(247) 587-876107-09-2025 Hospital Discharge instructionsAdditional Instructions PT/INR daily times 3 days starting 08/28/24, maintain INR 2-3 Date of Discharge: 08/27/24[facility] Work Phone: 1(824) 596-800707-09-2025 Discharge summary [facility] Medical Records Department [address] [place] [address] Transfer to [facility] MR#: [id number] Acct: [id number] Name: HAYDEE BUSTAMANTE Rep #:[id number] : 1945 79 From: Jasmyn Chan DO PCP: Dr. Claudine Durán MD Status:LUKE BORRERO Certification of patient admission REQUIRED AT TIME OF ADMISSION. I CERTIFY THAT POST-HOSPITAL ECF SERVICES ARE REQUIRED TO BE GIVEN ON AN IN-PATIENT BASIS BECAUSE OF THE ABOVE NAMED PATIENT'S NEED FOR FPC CARE ON A CONTINUING BASIS FOR THE CONDITION(S) FOR WHICH HE/SHE WAS RECEIVING IN-PATIENT HOSPITAL SERVICES PRIOR TO HIS/HER TRANSFER TO THE [facility]. 08/27/24 1209 Diet Diet Order/Speech Therapy: INPATIENT [...] PO QDAY Qty: 30 11RF Discontinued omega 6-gyv-xbm-fish oil [Fish Oil] 1,200 (144-216) mg capsule 1 cap PO DAILY Patient Comments: ON HOLD FOR COLONOSCOPY Referrals / Follow Up: Claudine Durán MD [Primary Care Provider] - Burak Amanda MD [Med Staff - Active Staff] - See Referral Note (in one week- call to schedule appointment) Disposition Disposition (needs filled in before D/C Order can be placed): Care Home Facility 08/27/24 1209 Cosigner Signature (if applicable): CC: Dr. Claudine Durán MD; Dr. Erasmo House MD; Dr. Burak Amanda MD ~ [facility]07-09-2025 [facility] Medical Records Department [address] [place] [address] Discharge Summary 08/27/24 1209 MR#: [id number] Acct: [id number] Name: HAYDEE BUSTAMANTE Rep #: [id number] : 1945 79 From: Jasmyn Chan DO PCP: Dr. Claudine Durán MD Status:DIS ADAIR Location: [place] [id number] Providers Date of Admission: 08/23/24 Date of [...] 1 tab PO DAILY supplement 03/19/23 vitamins A,C,G-drqt-pwzfzu 2,148 mcg-113 mg-45 mg-17.4 mg tablet (PreserVision [...] was seen in the emergency room at [facility] for evaluation of injuries sustained when [...] to get out of them or an clothing sales assistant. Patient finally used the telephone after she scooted herself around on the floor and called the squad to bring her in the hospital. Labs obtain urgency room included a CBC which was remarkable for hemoglobin of 11.3, INR was 1.2, chemistry profile was abnormal for BUN of 22. W (more content not included)...[facility] 08-26-2024 Progress note Author Jasmyn Chan [facility] Note Date/Time August 26, 2024 4:55p m [facility] Medical Records Department [address] [place] [address] Progress Note - Hospitalist 08/26/24 1654 MR#: [id number] Acct: [id number] Name: HAYDEE BUSTAMANTE Rep #:[id number] : 1945 79 From: Jasmyn Chan DO PCP: Dr. Claudine Durán MD Status:AD M ADAIR Location: [place] [address] Reason for Visit Reason for Visit: Diagnoses Other malaise (08/23/24) Unspecified injury of head, initial encounter (08/23/24) Unspecified fracture of the lower end of left radius, initial encounter for closed fracture (08/23/24) Subjective Subjective Patient was seen and examined today, I removed her from telemetry-she did not appear to be tachycardic. We are currently awaiting approval for her to go to [facility] for short-term skilled services. Objective Data Objective [...] 35 minutes Charges/Coding Visit Charges Inpatient E&M: 87636 Subs Hosp L2 08/26/241654 <Electronically signed by Jasmyn Chan DO> Cosigner Signature (if applicable): CC: ~ Signed [facility] Work Phone: 1(445) 202-686107-08-2025 Progress note [facility] Medical Records Department [address] [place] [address] Progress Note - Hospitalist 08/26/241653 MR#: [id number] Acct: [id number] Name: HAYDEE BUSTAMANTE Rep #:[id number] : 1945 79 From: Jasmyn Chan DO PCP: Dr. Claudine Durán MD Status:AD M ADAIR Location: [place] PD375-3 Reason for Visit Reason for Visit: Diagnoses Other malaise (08/23/24) Unspecified injury of head, initial encounter (08/23/24) Unspecified fracture of the lower end of left radius, initial encounter for closed fracture (08/23/24) Subjective Subjective Patient was seen and examined today, I removed her from telemetry-she did not appear to be tachycardic. We are currently awaiting approval for her to go to [facility] for short-term skilled services. Objective Data Objective [...] 35 minutes Charges/Coding Visit Charges Inpatient E&M: 78860 Subs Hosp L2 08/26/24 6395 Cosigner Signature (if applicable): CC: ~ Signed [facility]07-07-2025 Progress note Author Jasmyn [facility] Note Date/Time August 25, 2024 6:26p m [facility] Medical Records Department [address] [place] [address] Progress Note - Hospitalist 08/25/24 1819 MR#: [id number] Acct: [id number] Name: HAYDEE BUSTAMANTE Rep #:[id number] : 1945 79 From: Jasmyn Chan DO PCP: Dr. Claudine Durán MD Status:AD Doretha [facility]ORRERO [facility] Reason for Visit Reason for Visit: Diagnoses [...] 35 minutes Charges/Coding Visit Charges Inpatient E&M: 54910 Subs Hosp L2 08/25/24 1826 <Electronically signed by Jasmyn Chan DO> Cosigner Signature (if applicable): CC: ~ Signed [facility] Work Phone: 1(310) 386-727007-07-2025 Progress note [facility] Medical Records Department [address] [place] [address] Progress Note - Hospitalist 08/25/24 181 MR#: [id number] Acct: [id number] Name: HAYDEE BUSTAMANTE Rep #:[id number] : 1945 79 From: Jasmyn Chan DO PCP: Dr. Claudine Durán MD Status:AD M ADAIR Location: [place] [id number] Reason for Visit Reason for Visit: Diagnoses [...] 35 minutes Charges/Coding Visit Charges Inpatient E&M: 04017 Subs Hosp L2 08/25/24 1826 Cosigner Signature (if applicable): CC: ~ Signed [facility]07-06-2025 Progress note Author Erasmo House [facility] Note Date/Time August 24, 2024 1:25p m [facility] Medical Records Department [address] [place] [address] Progress Note - Hospitalist 08/24/24 0849 MR#: [id number] Acct: [id number] Name: HAYDEE BUSTAMANTE Rep #:[id number] : 1945 79 From: Erasmo Castañeda PCP: Dr. Claudine Durán MD Status:LUKE BORRERO Location: [address] Reason for Visit Reason for Visit: [...] (Auto) 69.1, Lymph % (Auto) 15.8 L, Wilkes % (Auto) 12.6 H, Eos % (Auto) [...] radius/Colles' fracture: Patient is being admitted on [facility] floor. 3 views ofx-ray left wrist x-ray [...] the wrist. Follow-up in 2 weeks in [facility]. 2. Closed head injury without concussion [...] shock if needed Total time spent in yhwb-tk-esis encounter in discussion of advanced directive 17 minutes. Laboratory Results 08/23/24 07:45: WBC 7.9, RBC 3.52 L, Hgb 11.3 L, Hct 33.9 L, MCV 96.3, MCH 32.1 H, MCHC 33.3, RDW Std Deviation 58.6 H, RDW Coeff of Catarino 17.0 H, Plt Count 182, MPV 10.9, Immature Gran % (Auto) 0.500, Neut % (Auto) 82.3 H, Lymph % (Auto) 8.1L, Wilkes % (Auto) 8.6, Eos % (Auto) 0.1, [...] (Auto) 69.1, Lymph % (Auto) 15.8 L, Wilkes % (Auto) 12.6 H, Eos % (Auto) [...] distal radius with intra-articular extension. Reading Location: [facility] Brain CT 08/23/24 08:06 IMPRESSION: 1. Generalized brain atrophy. 2. Small vessel ischemic/degenerative changes. 3. No acute intracranial hemorrhage, midline shift or mass effect. If symptoms persist, further evaluation with MRI is recommended. Reading Location: [facility] Charges/Coding Visit Charges Inpatient E&M: 68373 Subs Hosp L2 08/24/24 1325 <Electronically signed by Erasmo House MD> Cosigner Signature (if applicable): CC: ~ Signed [facility] Work Phone: 1(982) 839-494907-06-2025 Progress note [facility] Medical Records Department [address] [place] [address] Progress Note - Hospitalist 08/24/24 0849 MR#: [id number] Acct: [id number] Name: HAYDEE BUSTAMANTE Rep #:[id number] : 1945 79 From: Erasmo Castañeda PCP: Dr. Claudine Durán MD Status:LUKE BORRERO Location: [place] KP375-7 Reason for Visit Reason for Visit: Diagnoses [...] (Auto) 69.1, Lymph % (Auto) 15.8 L, Wilkes % (Auto) 12.6 H, Eos % (Auto) [...] the wrist. Follow-up in 2 weeks in [facility]. 2. Closed head injury without concussion [...] shock if needed Total time spent in ormn-il-kcvs encounter in discussion of advanced directive 17 minutes. Laboratory Results 08/23/24 07:45: WBC 7.9, RBC 3.52 L, Hgb 11.3 L, Hct 33.9 L, MCV 96.3, MCH 32.1 H, MCHC 33.3, RDW Std Deviation 58.6 H, RDW Coeff of Catarino 17.0 H, Plt Count 182, MPV 10.9, Immature Gran % (Auto) 0.500,Neut % (Auto) 82.3 H, Lymph % (Auto) 8.1L, Wilkes % (Auto) 8.6, Eos % (Auto) 0.1, Baso % (Auto) 0.4, Absolute Neuts (auto)6.5, Absolute Lymphs (auto) 0.64 L, Nucleated RBC % 0, PT 15.5 H, INR 1.2, Sodium 140, Potassium 3.9, Chloride 104, Carbon Dioxide 22.1, Anion Gap 14, BUN 22 H, Creatinine 0.63 L, Estim Creat Clear Calc 48.72 L, Est GFR (MDRD) Non-Af 91, BUN/Creatinine Ratio 34.8 H, Ecqifdy029 H, Calcium 9.2, Total Creatine Kinase 128 [...] (Auto) 69.1, Lymph % (Auto) 15.8 L, Wilkes % (Auto) 12.6 H, Eos % (Auto) 1.5, Baso % (Auto) 0.6, Absolute Neuts (auto) 3.7, Absolute Lymphs (auto) 0.85, Nucleated RBC % 0, PT 16.3 H, INR 1.3, Sctrud526, Potassium 3.9, Chloride 105, Carbon Dioxide 21.9, Anion Gap 13, BUN 15, Creatinine 0.65 L, Estim Creat Clear Calc 48.72 L, Est GFR (MDRD) Non-Af 91, BUN/Creatinine Ratio 22.5 H, Glucose 90, Calcium 9.0 Clinical Impression(s) from Imaging Studies Wrist X-Ray 08/23/24 07:31 IMPRESSION: Comminuted impacted fracture of the distal radius with intra-articular extension. Reading Location: [facility] Brain CT 08/23/24 08:06 IMPRESSION: 1. Generalized brain atrophy. 2. Small vessel ischemic/degenerative changes. 3. No acute intracranial hemorrhage, midline shift or mass effect. If symptoms persist, further evaluation with MRI is recommended. Reading Location: [facility] Charges/Coding Visit Charges Inpatient E&M: 84942 Subs Hosp L2 08/24/24 1325 Cosigner Signature (if applicable): CC: ~ Signed [facility]07-05-2025 Consult note Author Burak Vasiliy [facility] Note Date/Time August 23, 2024 2:01p m [facility] Medical Records Department [address] [place] [address] Consultation - Orthopedics 08/23/24 1354 MR#: [id number] Acct: [id number] Name: HAYDEE BUSTAMANTE Rep #:[id number] : 1945 79 From: Burak Castañeda PCP: Dr. Claudine Durán MD Status:AD M [facility] Location: [place] AN896-5 HPI Consult Data Date of Consult: 08/23/24 [...] suppl ement 03/19/23 10/01/23 History tablet) vitamins A,C,F-vmet-vfqupu 2,148 2 tab PO BID eye heal [...] Rx (Voltaren Arthritis Pain) #100 grams omega 4-cda-qyx-fish oil 1,200 mg 1 cap PO DAILY [...] (Auto) 82.3 H, Lymph % (Auto) 8.1L, Wilkes % (Auto) 8.6, Eos % (Auto) 0.1, [...] distal radius with intra-articular extension. 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 Brain CT 08/23/24 08:06 IMPRESSION: 1. Generalized brain atrophy. 2. Small vessel ischemic/degenerative changes. 3. No acute intracranial hemorrhage, midline shift or mass effect. If symptoms persist, further evaluation with MRI is recommended. Reading Location: [facility] Assessment & Plan Assessment/Plan (1) Closed [...] and direct care in that manner. [facility] Office: 08/23/24 1402 <Electronically signed by Burak Amanda MD> Cosigner Signature (if applicable): CC: Dr. Claudine Durán MD~ Signed [facility] Work Phone: 1(933) 676-968807-05-2025 Consult note [facility] Medical Records Department [address] [place] [address] Consultation - Orthopedics 08/23/24 1354 MR#: [id number] Acct: [id number] Name: HAYDEE BUSTAMANTE Rep #:[id number] : 1945 79 From: Burak Castañeda PCP: Dr. Claudine Durán MD Status:[facility] Location: [place] [id number] HPI Consult Data Date of Consult: 08/23/24 [...] suppl ement 03/19/23 10/01/23 History tablet) vitamins A,C,E-dhcg-vljwxc 2,148 2 tab PO BID eye heal [...] Rx (Voltaren Arthritis Pain) #100 grams omega 4-kfa-tzg-fish oil 1,200 mg 1 cap PO DAILY [...] (Auto) 82.3 H, Lymph % (Auto) 8.1L, Wilkes % (Auto) 8.6, Eos % (Auto) 0.1, [...] distal radius with intra-articular extension. Reading Location: [facility] Independent review of the films shows comminuted distal radius fracture with impaction and slight loss of radial height and inclination however, patient already has Luno?radial tbrv-wn-syog osteoarthritis with subchondral sclerosis additionally there is scapholunate widening appreciated. Brain CT 08/23/24 08:06 IMPRESSION: 1. Generalized brain atrophy. 2. Small vessel ischemic/degenerative changes. 3. No acute intracranial hemorrhage, midline shift or mass effect. If symptoms persist, further evaluation with MRI is recommended. Reading Location: [facility] Assessment & Plan Assessment/Plan (1) Closed [...] x-rays and direct carein that manner. [facility] Office: 08/23/24 1406 Cosigner Signature (if applicable): CC: Dr. Claudine Durán MD~ Signed [facility]07-05-2025 History and physical note Author Erasmo House [facility] Note Date/Time August 23, 2024 11:12 am [facility] Medical Records Department [address] [place] [address] H&P Exam - Hospitalist 08/23/24 1023 MR#: [id number] Acct: [id number] Name: HAYDEE BUSTAMANTE Rep #:[id number] : 1945 79 From: Erasmo Castañeda PCP: Dr. Claudine Durán MD Status:LUKE BORRERO Location: [facility] SZ646-3 HPI - General General Date of Admission: [...] suppl ement 03/19/23 10/01/23 History tablet) vitamins A,C,G-pbgd-azecfc 2,148 2 tab PO BID eye heal [...] Rx (Voltaren Arthritis Pain) #100 grams omega 9-ozk-ytm-fish oil 1,200 mg 1 cap PO DAILY [...] (Auto) 82.3 H, Lymph % (Auto) 8.1L, Wilkes % (Auto) 8.6, Eos % (Auto) 0.1, [...] distal radius with intra-articular extension. Reading Location: [facility] Brain CT 08/23/24 08:06 IMPRESSION: 1. Generalized brain atrophy. 2. Small vessel ischemic/degenerative changes. 3. No acute intracranial hemorrhage, midline shift or mass effect. If symptoms persist, further evaluation with MRI is recommended. Reading Location: [facility] Assessment & Plan Assessment/Plan (1) Closed fracture of distal end of left radius: (2) Closed head injury without concussion: PLAN: Plan This 72-year-old female was brought to ED when she fell down, mechanism unclear resulting into left wrist fracture. 1. Acute debility of ADL due to closed fracture of distal end of left radius/Colles' fracture: [facility] 3 views ofx-ray left wrist [...] shock if needed Total time spent in bjjf-up-iiyk encounter in discussion of advanced directive 17 minutes. Laboratory Results 08/23/24 07:45: WBC 7.9, RBC 3.52 L, Hgb 11.3 L, Hct 33.9 L, MCV 96.3, MCH 32.1 H, MCHC 33.3, RDW Std Deviation 58.6 H, RDW Coeff of Catarino 17.0 H, Plt Count 182, MPV 10.9, Immature Gran % (Auto) 0.500, Neut % (Auto) 82.3 H, Lymph % (Auto) 8.1L, Wilkes % (Auto) 8.6, Eos % (Auto) 0.1, [...] distal radius with intra-articular extension. Reading Location: [facility] Brain CT 08/23/24 08:06 IMPRESSION: 1. Generalized brain atrophy. 2. Small vessel ischemic/degenerative changes. 3. No acute intracranial hemorrhage, midline shift or mass effect. If symptoms persist, further evaluation with MRI is recommended. Reading Location: [facility] Charges/Coding Visit Charges Inpatient E&M: 06530 Init Hosp L3 Procedures Hospitalists Procedures: 85081 Advncd Care Plan 30 Min 08/23/24 1112 <Electronically signed by Erasmo House MD> Cosigner Signature (if applicable): CC: Dr. Claudine Durán MD; Dr. Erasmo House MD~ Signed [facility] Work Phone: 1(729) 287-135807-05-2025 Discharge summary Author Ron Loida [facility] Note Date/Time August 23, 2024 10:29 am [facility] Medical Records Department [address] [place] [address] Emergency Department Summary 08/23/24 MR#: [id number] Acct: [id number] Name: HAYDEE BUSTAMANTE Rep #:[id number] : 1945 79 From: Ron Mariscal MD [...] at any point in time or syncope. Saxtw-dswq-lduipfsi. Lives by herself. 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 She states this morning she laid [...] to if her wrist was not injured [facility] Medical History Hypertension GERD [...] suppl ement 03/19/23 10/01/23 History tablet) vitamins A,C,L-ckpy-iujouu 2,148 2 tab PO BID eye heal [...] tabs Instructions: ON HOLD FOR COLONOSCOPY omega 4-rgz-car-fish oil 1,200 mg 1 cap PO DAILY [...] motor deficits and no sensory deficits noted [place] Coma Scale: document GCS findings Spontaneous Obeys [...] 82.3 H Lymph % (Auto) 8.1 L Wilkes % (Auto) 8.6 Eos % (Auto) 0.1 [...] distal radius with intra-articular extension. Reading Location: [facility] Brain CT 08/23/24 08:06 IMPRESSION: 1. Generalized brain atrophy. 2. Small vessel ischemic/degenerative changes. 3. No acute intracranial hemorrhage, midline shift or mass effect. If symptoms persist, further evaluation with MRI is recommended. Reading Location: [facility] Management Discussion w/another healthcare provider: Hospitalist and Precision Honer (ezekiel amanda) Procedures Upper Extremity Splints Upper [...] functional status Disposition Disposition: Acute Care Hospital [facility] What to do if you have Problems For any increased pain, shortness of breath, bleeding, nausea or vomiting, chestpain, or any unexpected problems, contact your Primary Care Provider. Call [facility] ([phone]) or report to the closest Emergency Room. Call 911 if necessary. 08/23/24 1029 <Electronically signed by Ron Mariscal MD> Cosigner Signature (if applicable): CC: Dr. Claudine Durán MD ~ Signed [facility] Work Phone: 1(621) 713-662207-05-2025 Evaluation note* Diagnosis Onset Date Resolution Status Admit Date Closed fracture of distal en d of left radius inactive August 23, 2024 1 0:24am Closed head injury without concussion inactive August 23, 2024 1 0:24am Declining functional status inactive August 23, 2024 10:24am [facility] Work Phone: 1([phone]) 850-465507-05-2025 History and physical note [facility] Medical Records Department [address] [place] [address] H&P Exam - Hospitalist 08/23/24 1023 MR#: [id number] Acct: [id number] Name: HAYDEE BUSTAMANTE Rep #:[id number] : 1945 79 From: Erasmo Castañeda PCP: Dr. Claudine Durán MD Status:LUKE BORRERO Location: [facility] WE636-5 HPI - General General Date of Admission: [...] suppl ement 03/19/23 10/01/23 History tablet) vitamins A,C,J-vfzz-watltf 2,148 2 tab PO BID eye heal [...] Rx (Voltaren Arthritis Pain) #100 grams omega 7-ynd-spu-fish oil 1,200 mg 1 cap PO DAILY [...] (Auto) 82.3 H, Lymph % (Auto) 8.1L, Wilkes % (Auto) 8.6, Eos % (Auto) 0.1, [...] distal radius with intra-articular extension. Reading Location: [facility] Brain CT 08/23/24 08:06 IMPRESSION: 1. Generalized brain atrophy. 2. Small vessel ischemic/degenerative changes. 3. No acute intracranial hemorrhage, midline shift or mass effect. If symptoms persist, further evaluation with MRI is recommended. Reading Location: [facility] Assessment & Plan Assessment/Plan (1) Closed fracture of distal end of left radius: (2) Closed head injury without concussion: PLAN: Plan This 72-year-old female was brought to ED when she fell down, mechanism unclear resulting into leftwrist fracture. 1. Acute debility of ADL due to closed fracture of distal end of left radius/Colles' fracture: [facility] views ofx-ray left wrist [...] shock if needed Total time spent in glad-cp-xbkt encounter in discussion of advanced directive 17 minutes. Laboratory Results 08/23/24 07:45: WBC 7.9, RBC 3.52 L, Hgb 11.3 L, Hct 33.9 L, MCV 96.3, MCH 32.1 H, MCHC 33.3, RDW Std Deviation 58.6 H, RDW Coeff of Catarino 17.0 H, Plt Count 182, MPV 10.9, Immature Gran % (Auto) 0.500,Neut % (Auto) 82.3 H, Lymph % (Auto) 8.1L, Wilkes % (Auto) 8.6, Eos % (Auto) 0.1, Baso % (Auto) 0.4, Absolute Neuts (auto)6.5, Absolute Lymphs (auto) 0.64 L, Nucleated RBC % 0, PT 15.5 H, INR 1.2, Sodium 140, Potassium 3.9, Chloride 104, Carbon Dioxide 22.1, Anion Gap 14, BUN 22 H, Creatinine 0.63 L, Estim Creat Clear Calc 48.72 L, Est GFR (MDRD) Non-Af 91, BUN/Creatinine Ratio 34.8 H, Bzcbrlr934 H, Calcium 9.2, Total Creatine Kinase 128 Clinical Impression(s) from Imaging Studies Wrist X-Ray 08/23/24 07:31 IMPRESSION: Comminuted impacted fracture of the distal radius with intra-articular extension. Reading Location: [facility] Brain CT 08/23/24 08:06 IMPRESSION: 1. Generalized brain atrophy. 2. Small vessel ischemic/degenerative changes. 3. No acute intracranial hemorrhage, midline shift or mass effect. If symptoms persist, further evaluation with MRI is recommended. Reading Location: [facility] Charges/Coding Visit Charges Inpatient E&M: 41663 Init Hosp L3 Procedures Hospitalists Procedures: 64899 Advncd Care Plan 30 Min 08/23/24 1112 Cosigner Signature (if applicable): CC: Dr. Claudine Durán MD; Dr. Erasmo House MD~ Signed [facility]07-05-2025 Discharge summary [facility] Medical Records Department [address] [place] [address] Emergency Department Summary 08/23/24 MR#: [id number] Acct: [id number] Name: HAYDEE BUSTAMANTE Rep #:[id number] : 1945 79 From: Ron Mariscal MD [...] any point in time or sync ope. Aeefm-htyy-jfyikubu. Lives by herself. 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 She states this morning she laid [...] to if her wrist was not injured [facility] Medical History Hypertension GERD [...] suppl ement 03/19/23 10/01/23 History tablet) vitamins A,C,K-ngnf-rhbsit 2,148 2 tab PO BID eye heal [...] tabs Instructions: ON HOLD FOR COLONOSCOPY omega 0-kds-ooe-fish oil 1,200 mg 1 cap PO DAILY [...] motor deficits and no sensory deficits noted [place] Coma Scale: document GCS findings Spontaneous Obeys [...] 82.3 H Lymph % (Auto) 8.1 L Wilkes % (Auto) 8.6 Eos % (Auto) 0.1 [...] distal radius with intra-articular extension. Reading Location: [facility] Brain CT 08/23/24 08:06 IMPRESSION: 1. Generalized brain atrophy. 2. Small vessel ischemic/degenerative changes. 3. No acute intracranial hemorrhage, midline shift or mass effect. If symptoms persist, further evaluation with MRI is recommended. Reading Location: [facility] Management Discussion w/another healthcare provider: Hospitalist and Precision Honer (ortho vasiliy) Procedures Upper Extremity Splints Upper Extremity Splint: Orthoglass (AP short arm, fabricated. Neurovascularly intact distally afterplacement) Splint Fabrication: Fabricated Location: Left Discharge Plan Dx/Rx/DC Orders Clinical Impression: Closed fracture of distal end of left radius, Closed head injury without concussion, Abrasion of face, Subtherapeutic international normalized ratio (INR), Fall from slip, trip, or stumble, Decliningfunctional status Disposition Disposition: Acute Care Hospital [facility] What to do if you have Problems For any increased pain, shortness of breath, bleeding, nausea or vomiting, chestpain, or any unexpected problems, contact your Primary Care Provider. Call [facility] ([phone]) or report tothe closest Emergency Room. Call 911 if necessary. 08/23/24 1029 Cosigner Signature (if applicable): CC: Dr. Claudine Durán MD ~ Signed [facility]07-05-2025 Radiology Diagnostic study note [facility] Imaging Services [address] [place] [address] [id number] Wrist min 3 Views MR#: [id number] Acct: [id number] Name: HAYDEE BUSTAMANTE Rep #: [id number] : 1945 F 79 From: Bee Herrera MD PCP: Dr. Claudine Durán MD Status: RE G ER Study:Wrist min 3 Views Date of Exam: Exam# [id number] Ordering Dr: Iain Mariscal MD EXAM: XR [...] distal radius with intra-articular extension. Reading Location: [facility] CC: Dr. Ron Mariscal MD; Dr. Claudine Durán MD ~ Life Science Teacher: Signed [facility]07-05-2025 Radiology Diagnostic study note [facility] Imaging Services [address] [place] [address] Brain/Head without Contrast MR#: [id number] Acct: [id number] Name: HAYDEE BUSTAMANTE Rep #: [id number] : 1945 F 79 From: Bee Herrera MD PCP: Dr. Claudine Durán MD Status: RE G ER Study:Brain/Head without Contrast Date of Exa m: 08/23/24 Exam# [id number] Ordering Dr: Iain Mariscal MD EXAM: CT [...] evaluation with MRI is recommended. Reading Location: [facility] CC: Dr. Ron Mariscal MD; Dr. Claudine Durán MD ~ Life Science Teacher: Signed [facility]07-03-2025 History of Present illness Narrative* Michael Braxton MD - 08/21/2024 12:46 PM EDT INR low with patient who missed a dose of coumadin. Continue current regimen. Recheck INR in 1 week. * Melissa Means, PAULA - 08/21/2024 12:24 PM EDT patient had inr completed at [facility] patients inr is 1.2 (patients [...] FYI - results being sent to doc operations intelligence superintendent due to pcp and team members are [...] to the missed dose documented [facility] Telephone encounter Note * Telephone Encounter [...] Cintron LPN August 18, 2024 2:11 PM [facility]06-30-2025 Miscellaneous Notes* Telephone Encounter - Geni [...] 18, 2024 2:11 PM documented in this encounterShel[facility]06-18-2025 History of Present illness Narrative* Melissa Means RN - 08/06/2024 4:32 PM EDT pcp agrees with information * Melissa Means RN - 08/06/2024 12:18 PM EDT patient had inr completed at [facility] patients inr is 1.4 (patients inr range [...] not agree with recommendation documented in this encounterShel[facility]06-10-2025 History of Present illness Narrative* Jane [...] 29, 2024 10:11 AM documented in this encounterShelby [facility]06-03-2025 Instructions* Patient Instructions* Brissa Chester APRN.COAT OPERATOR INSULATOR - 07/22/2024 2:32 PM EDT We discussed [...] You can follow up with a local clinical supervisor in [place] for your annual echocardiogram and routinecare. If you prefer, you can also follow up at another [facility] facility or [facility]. - as long as ECHO looks good today, you can follow-up with repeat ECHO in 1 years time - If you experience new or worsening symptoms, such as shortness of breath, chest pain, or leg swelling, please contact your clinical supervisor or our office immediately. Next steps: - Attend your echocardiogram appointment today as scheduled. - I will contact you via [employer] with your echocardiogram and lab results once they are available. - Ensure you have a follow-up plan with a clinical supervisor for your annual echocardiogram and routine care. Please let us know if you have any questions or concerns. Dr Saeed O: [phone] F: [phone] It was my pleasure to participate in the management of your care! Brissa Chester, MSN, DIGITAL COMMUNICATIONS MANAGER-COAT OPERATOR INSULATOR documented in this encounterShelby [facility]06-03-2025 History of Present illness Narrative* Brissa Chester APRN.CNP - 07/22/2024 1:30 PM EDT Images from the original note were not included. [facility] Department of Cardiovascular Medicine SECTION OF INTERVENTIONAL CARDIOLOGY OUTPATIENT VISIT DATE July 22, 2024 OUTPATIENT VISIT TYPE ESTABLISHED FOLLOW UP Primary Flyer Maker: Juvencio Saeed MD Chief Complaint: Patient here [...] successful TF TAVR via 14 Fr R PALLIATIVE MEDICINE PHYSICIAN with a 25 mm Navitor at nominal [...] the initiation of metoprolol succinate by a clinical supervisor at [facility] a few days ago. She also reports [...] ([facility]) 03/07/2015 Dr. Hurley ([facility]) Tricuspid regurgitation PAST SURGICAL HISTORY Procedure [...] SPINE FUSN,POST INTERBODY 2012 Dr. Armando at [facility]. Diskectomy and laminectomy PAST SURGICAL HISTORY OF [...] FOLIC ACID ORAL Take by mouth. vit A,C,I-Vggr-Jphnje (OCUVITE PRESERVISION) 2,148 mcg-113 mg-45 mg-17.4mg tab [...] and lab results; will communicate findings via [employer]. - Recommended annual echocardiogram follow-up; patient may choose to follow up locally or at [facility]. 2. Nonrheumatic mitral valve stenosis (I34.2) [...] rehab sessions. Initiated on Metoprolol Succinate by clinical supervisor at [facility]. - Continue Metoprolol Succinate as prescribed. - Monitor BP regularly. 5. 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 6. History of recurrent deep [...] You can follow up with a local clinical supervisor in [place] for your annual echocardiogram and routinecare. If you prefer, you can also follow up at another [facility] or return here [facility]. - as long as ECHO looks good today, you can follow-up with repeat ECHO in 1 years time - If you experience new or worsening symptoms, such as shortness of breath, chest pain, or leg swelling, please contact your clinical supervisor or our office immediately. Next steps: - Attend your echocardiogram appointment today as scheduled. - I will contact you via [employer] with your echocardiogram and lab results once they are available. - Ensure you have a follow-up plan with a clinical supervisor for your annual echocardiogram and routine care. [...] 4lbs from your dry weight, call your clinical supervisor Exercise: Be active and exercise every day. Smoking and alcohol abstinence/cessation, if applicable Please Visit [email or web address] Questions or Concerns after you go home? Please call Nurse psychologist industrial organizational line at . I spent a total of >45 minutes on the date of the service which included preparing to see the patient, bqqv-in-lsdc patient care, completing clinical documentation, obtaining and/or reviewing separately obtained history, performing a medically appropriate examination, counseling and educating the patient/family/caregiver, ordering medications, tests, or procedures, independently interpreting results (not separately reported), communicating results to the patient/family/caregiver, and care coordination (not separately reported). Brissa Chester, MSN, DIGITAL COMMUNICATIONS MANAGER-COAT OPERATOR INSULATOR documented in this encounterShelby [facility] Hospital06-02-2025 History of Present illness Narrative* Tywla Cuevas APRN.CNP - 07/21/2024 11:01 AM EDT Noted, agree, thank you! * Melissa Means RN - 07/21/2024 10:50 AM EDT patient had inr completed at [facility] patients inr is 1.4 (patients inr range [...] not agree with recommendation documented in this encounterShelby [facility] Hospital05-19-2025 History of Present illness Narrative* Melissa Means RN - 07/07/2024 4:47 PM EDT pcp agrees with information * Melissa Means RN - 07/07/2024 11:58 AM EDT patient had inr completed at [facility] patients inr is 1.4 (patients inr range [...] not agree with recommendation documented in this encounterShelby [facility] Hospital05-19-2025 Telephone encounter Note * Telephone Encounter [...] Means RN July 07, 2024 12:02 PM [facility]05-19-2025 Miscellaneous Notes* Telephone Encounter - Melissa [...] 07, 2024 12:02 PM documented in this encounterShelby [facility] Hospital05-07-2025 History of Present illness Narrative* Pili [...] enjoys it She established with a new clinical supervisor at [place] as it was a little closer and [...] RN Incomplete Pt. Does not have a concrete products dispatcher Biannual Cardiology visit addressed 08/20/2024 05/26/2024 Pili [...] - Bi-Weekly Outreach (Recurring) Disposition Based on cloth shrinking machine operator, the following disposition is advised: No action needed Pili Benitez RN June 25, 2024 3:57 PM documented in this encounterShelby [facility] Hospital05-02-2025 Telephone encounter Note * Telephone Encounter - Magalie Ngo LPN - 06/20/2024 3:27 PM EDT [facility] 02/23/23 Patient phones requesting refills as follows: Requested Prescriptions Pending Prescriptions Disp Refills fluticasone (FLONASE) 50 mcg/actuation nasal spray 3 each 3 Sig: Use 1 spray in each nostril once daily. Please review and advise. Magalie Ngo LPN [facility]05-02-2025 Miscellaneous Notes* Telephone Encounter - Magalie Ngo LPN - 06/20/2024 3:27 PM EDT [facility] 02/23/23 Patient phones requesting refills as follows: Requested Prescriptions Pending Prescriptions Disp Refills fluticasone (FLONASE) 50 mcg/actuation nasal spray 3 each 3 Sig: Use 1 spray in each nostril once daily. Please review and advise. Magalie Ngo LPN documented in this encounterShelby Memorial Hospital05-02-2025 Evaluation note* Diagnosis Onset Date Resolution Status Admit Date Mitral stenosis acute June 20, 2024 10:07am Severe aortic stenosis acute Ma y 2024 10:07am Hypertension chronic June 20 10:07am [facility] Work Phone: 1(687) 527-519205-02-2025 Evaluation note* Diagnosis Onset Date Resolution Status Admit Date Mitral stenosis acute June 20, 2024 10:07am Severe aortic stenosis acute Ma y 2024 10:07am Hypertension chronic June 20 10:07am Closed fracture of distal en d of left radius acute August 23, 2024 1 0:24am Closed head injury without concussion acute August 23, 2024 1 0:24am [facility] Work Phone: 1(440) 523-423605-02-2025 Evaluation note* Diagnosis Onset Date Resolution Status Admit Date Mitral stenosis acute June 20, 2024 10:07am Severe aortic stenosis acute Ma y 2024 10:07am Hypertension chronic June 20 10:07am Closed fracture of distal en d of left radius acute August 23, 2024 1 0:24am Closed head injury without concussion acute August 23, 2024 1 0:24am Declining functional status acute August 23, 2024 10:24am [facility] Work Phone: 1(990) 864-338305-02-2025 Evaluation note* Diagnosis Onset Date Resolution Status Admit Date Mitral stenosis acute June 20, 2024 10:07am Severe aortic stenosis acute Ma y 2024 10:07am Hypertension chronic June 20 10:07am Closed fracture of distal en d of left radius inactive August 23, 2024 1 0:24am Closed head injury without concussion inactive August 23, 2024 1 0:24am Declining functional status inactive August 23, 2024 10:24am [facility] Work Phone: 1(281) 238-148904-07-2025 History of Present illness Narrative* Pili Benitez, PAULA - 05/26/2024 10:40 AM EDT Transitional Care Management (TCM) Follow-Up Note PCP Update / Actionable Items N/A N/A - No specialty updates needed Patient Source: In-Network Discharge Follow-up outreach: TCM enrolled patient Outreach Summary: TCM Update Spoke with the pt. At this time. Saw COAT OPERATOR INSULATOR Sunday- slight cough, still feels like she [...] 26, 2024 10:42 AM documented in this encounterShelby [facility] Hospital04-03-2025 Telephone encounter Note * Telephone Encounter - Yesenia Weinstein LPN - 05/22/2024 11:34 AM EDT Information requested by Santos with [facility] Cardiac Rehab has been faxed as rquested [facility]04-03-20[facility] Miscellaneous Notes* Telephone Encounter - Yesenia Weinstein LPN - 05/22/2024 11:34 AM EDT Information requested by Santos with [facility] Cardiac Rehab has been faxed as rquested * Telephone Encounter - Lulu Quigley RN - 05/21/2024 11:00 AM EDT Santos with [facility] Cardiac Rehab calls to report that more [...] physician. Phone number for further questions is [phone]. Lulu Quigley RN documented in this encounterShelby [facility] Hospital04-02-2025 Telephone encounter Note * Telephone Encounter - Lulu Quigley RN - 05/21/2024 11:00 AM EDT Santos with [facility] Cardiac Rehab calls to report that more [...] physician. Phone number for further questions is [phone]. Lulu Quigley RN [facility]04-01-2025 History of Present illness Narrative* Jimbo Swanson APRN.AMUSEMENT RIDE OPERATOR - 05/20/2024 2:13 PM EDT Continue current dosing and recheck INR 2 weeks, advised of this at visit today. * Melissa Means RN - 05/20/2024 12:53 PM EDT patient had inr completed at [facility] patients inr is 1.6 (patients inr range [...] is just slightly low documented in this encounterShelby [facility] Hospital04-01-2025 Instructions* Patient Instructions* Jimbo Swanson APRN.CNS [...] review all the medicines you take, even fzlu-uzz-cjzwqia medicines. As you get older, the way [...] have certain medical conditions. documented in this encounterShelby [facility] Hospital04-01-2025 History of Present illness Narrative* Jimbo [...] in the medical record. Outside specialists seen: [facility] Medical/Family history review Reviewed and [...] weeks. She will schedule cardiac rehab at [facility]. She would like to establish with local clinical supervisor either in [place] at [facility]. Provided with pain medication to take at bedtime as needed for pain control affecting her sleep. Discussed possible OIC. She does note need for follow-up endoscopy at ~ 1 year from previous, prefers not to see Dr. Esteban. Jimbo Swanson APRN.AMUSEMENT RIDE OPERATOR documented in this encounterShelby [facility] Hospital03-31-2025 History of Present illness Narrative* Pili [...] a little hoarse today People in her hoahaoism group are also sick She vacuumed her [...] so she is very involved in her hoahaoism right now. No new SDOH concerns were [...] 19, 2024 11:12 AM documented in this encounterShelby [facility] Hospital03-24-2025 History of Present illness Narrative* Pili [...] confirmed she has since spoke with her TOY TRAINS AND ACCESSORIES SALESPERSON about that. 1.7-2.0 range established with her doctor as her desired range for her INR. Her ATB is completed that she was discharged on. She tolerated that well with no complaints. She's been getting out and going to hoahaoism and her choir practices. 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 [facility]03-24-2025 Miscellaneous Notes* Telephone Encounter - Yesenia [...] when INR > 2.0 documented in this encounterShelby [facility]03[facility] Telephone encounter Note * Telephone Encounter - Jimbo Swanson APRN.CNS - 05/09/2024 3:24 PM EDT Recommend continue with current dosing unchanged. Can check INR next week or Sunday or keep her scheduled appointment in Coumadin clinic on May 20. [facility]03-21-2025 Telephone encounter Note* Telephone Encounter - Yesenia Weinstein LPN - 05/09/2024 2:13 PM EDT Spoke with patient. Patient states she was released from the hospital on Sunday and she resumed her coumadin on Sunday. Her current dosing is coumadin 5 mg every day except on & Sun in which she takes 6 mg. No other finding per patient. [facility]03-21-2025 Telephone encounter Note* Telephone Encounter - Yesenia Weinstein LPN - 05/09/2024 2:07 PM EDT ----- Message from Jimbo Timmons APRN.CNS sent at 05/09/2024 1:07 PM EDT ----- Check on current dosing of check on current dosing of Coumadin and when resumed. 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 She is to stop Aspirin when INR > 2.0 [facility]03-21-2025 Progress note* Result Encounter Note - Jimbo Swanson APRN.CNS - 05/09/2024 1:07 PM EDT Check on current dosing of check on current dosing of Coumadin and when resumed. 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 She is to stop Aspirin when INR > 2.0 [facility]03-17-2025 History of Present illness Narrative* Pili Benitez RN - 05/05/2024 10:32 AM EDT Transition Care Management (TCM) Initial Outreach PCP Update / Actionable Items N/A HRTIC TCM Home Visit Referral Source of Stratification: TCM HUB Hospital Admission Status: Discharged Readmission Risk Score: 10% Patient's zip code: [address] Is zip code within program service area: [...] pt. And confirmed upcoming appts. Went to Flyer Maker office this morning- everything going well since [...] Cardiac rehab will be taking place at [facility]- She will call them to schedule She has good support from her hoahaoism that help her get to her appts [...] TCM outreach phone calls Patient discharged from [facility] Discharge date: 05/03/24 Admitted for: TAVR procedure Readmission Risk: 10 Value-Based Contract: Aetsimeon DELGADO Contact: Contact made with patient: Yes Hi, my name is Pili Benitez RN and I am calling from the [facility] on behalf of your PrimaryCare Provider, [...] I will send your request to a scheduler maintenance who will contact and assist you with [...] 05, 2024 10:45 AM documented in this encounterShelby Memorial Hospital03-17-2025 Instructions* Patient Instructions* Adalid Clark APRN.COAT OPERATOR INSULATOR - 05/05/2024 8:34 AM EDT Follow up/Disposition: [...] 4lbs from your dry weight, call your clinical supervisor Exercise: Be active and exercise every day. Smoking and alcohol abstinence/cessation, if applicable Heart Failure Education Booklet: information given previously. Please Visit [email or web address] documented in this encounterShelby [facility] Hospital03-17-2025 History of Present illness Narrative* Adalid Clark APRN.CNP - 05/05/2024 8:14 AM EDT Images from the original note were not included. [facility] Department of Cardiovascular Medicine SECTION OF INTERVENTIONAL CARDIOLOGY OUTPATIENT VISIT DATE May 05, 2024 OUTPATIENT VISIT TYPE ESTABLISHED FOLLOW UP Primary Flyer Maker: Dr. Saeed Chief Complaint: Patient here for cardiac follow up evaluation History of Present Illness: Patient is a 78 year old female who presents for follow up visit today. 05/02/2024 s/p TF TAVR via 14 Fr R PALLIATIVE MEDICINE PHYSICIAN with a 25 mm Navitor Reports has [...] s/p TF TAVR via 14 Fr R PALLIATIVE MEDICINE PHYSICIAN with a 25 mm Navitor -Echo post trace AI, gradients 12/6mmHg HTN disseminated histoplasmosis (ongoing treatment with undetectable histo antigen 12/19) VTE s/p IVC filter (warfarin) GIB in July from duodenal ulcer s/p cautery RA (but off treatment d/t histoplasmosis) COPD ASSESSMENT/ IMPRESSION 05/02/2024 s/p TF TAVR via 14 Fr R PALLIATIVE MEDICINE PHYSICIAN with a 25 mm Navitor Reports has [...] 4lbs from your dry weight, call your clinical supervisor Exercise: Be active and exercise every day. Smoking and alcohol abstinence/cessation, if applicable Heart Failure Education Booklet: information given previously. Please Visit [email or web address] I spent a total of >35 minutes on the date of the service which included preparing to see the patient, qqph-bz-[id number] patient care, completing clinical documentation, obtaining and/or reviewing separately obtained history, performing a medically appropriate examination, counseling and educating the patient/family/caregiver, and ordering medications, tests, or procedures. Adalid Clark APRN.CNP documented in this encounterShelby [facility] Hospital03-13-2025 History of Present illness Narrative* Jimbo Swanson APRN.CNS - 05/01/2024 4:08 PM EDT Noted, agree * Melissa Means RN - 05/01/2024 2:52 PM EDT patient had inr completed at [facility] patients inr is 1.1 (patients inr range [...] (05/20/24 - pt has appt w ith TOY TRAINS AND ACCESSORIES SALESPERSON also this day) for follow up INR. documented in this encounterShelby [facility] Hospital03-12-2025 History of Present illness Narrative* Nara [...] Imm Admin: COVID-19 vaccine, age 12+ yr ([employer]APE[employer] COMIRNATY) 01/04/2023 Imm Admin: COVID-19 vaccine, age 12+ yr, 2022- season (Lutonix) Only the first 3 history entries have been loaded, but more history exists. The patient has the following: ACTIVE PROBLEM LIST Esophageal Reflux Meralgia Paresthetica Other Voice and Resonance Disorders Arthropathy, Unspecified, Site Unspecified Elevated Liver Enzymes Yard Associate Current Use of Anticoagulant Therapy Hnp (Herniated [...] factor (HCC) 03/07/2015 Dr. Hurley ([facility]) Tricuspid regurgitation PAST SURGICAL HISTORY Procedure [...] SPINE FUSN,POST INTERBODY 2012 Dr. Armando at [facility]. Diskectomy and laminectomy PAST SURGICAL HISTORY OF [...] (FLONASE) 50 mcg/actuation nasal spray Use 1 [place] in each nostril once daily. vit A,C,K-Xvzj-Wfsoml (OCUVITE PRESERVISION) 2,148 mcg-113 mg-45 mg-17.4mg tab [...] tablet daily. Medication Comments documented by Steven ([employer])Muna on 03/05/2018 at 0933. 03/05/18 The medications are managed by this patient by: PATIENT Muna Harris ([employer]) [facility] for [facility] medications. ALLERGIES Allergen [...] 03/21/24 11:36 AM Impression IMPRESSION: See result Life Science Teacher: [facility] Transcribe Date/Time: Mar 21 2024 12:02P Dictated by : JACKELINE SCHULER MD This examination was interpreted and the report reviewed and electronically signed by: JACKELINE SCHULER MD on Mar 21 2024 12:04PM EST ECG COMPLETE Collection Time: 03/21/24 11:27 AM Impression SINUS RHYTHM WITH PREMATURE ATRIAL COMPLEXES BORDERLINE ECG Confirmed by IRA MC, ELIE ([id number]) on 03/30/2024 12:00:41 AM CTA CHEST (GATED) W IVCON Collection Time: 03/21/24 10:57 AM Impression IMPRESSION: Aortic Annulus and valve anatomy as described above Normal thoracic and abdomiinal aorta.Atherosclerotic changes as in the body of the report.Minimum luminal diameter throughout: 7 mm Life Science Teacher: [facility] Transcribe Date/Time: Mar 21 2024 11:22A Dictated [...] and consent discussed: yes. Patient / Responsible Republican agrees to proceed: yes Patient / Surrogate [...] 5:59 PM Pager/Contact #: documented in this encounterShelby Memorial Hospital03-12-2025 Instructions* Patient Instructions* Monica Aguila APRN.COAT OPERATOR INSULATOR - 04/30/2024 1:32 PM EDT Destinee Castañeda are scheduled for TF-TAVR on 05/02/[address] Saeed Instructed to go to ChatLingual-1 REGISTRATION TODAY, after all appointment to register for the procedure. ON THE PROCEDURE DAY 05/03/2024, Report to AorTx J1-2 at 8:30 . Instructions: The Evening [...] into surgery. - No make-up or nail new zealander. - No jewelry, including watches, wedding rings and any body jewelry. // Questions about preparing for your procedure? Call your doctors office: Dr. Orlin Meyer [phone] Dr. Gallito Cortez [phone] Dr. Jason Olea [phone] Dr. Juvencio Saeed [phone] Interventional Discharge Readiness Tool Your Anticipated Discharge Needs: If you are discharged the same day -You must have accommodations in [place] (if you live over 2 hours away) [...] your risk of future heart problems. For [facility] call [phone] to schedule after you are home from your procedure. If you do not receive your referral, please call your clinical supervisor's office for the order. It was nice to see you again, I wish you the best. Kindly, Monica Aguila APRN.SANTY documented in this encounterShelby Memorial Hospital03-12-2025 History of Present illness Narrative* Monica Aguila APRN.CNP - 04/30/2024 1:00 PM EDT Images from the original note were not included. [facility] Department of Cardiovascular Medicine SECTION OF INTERVENTIONAL CARDIOLOGY OUTPATIENT VISIT DATE April 30, 2024 OUTPATIENT VISIT TYPE ESTABLISHED FOLLOW UP Primary Flyer Maker: Dr. Saeed Chief Complaint: Patient here for cardiac follow up evaluation History of Present Illness: Patient is a 78 year old female who presents for follow up visit today. Patient was here with a couple from her hoahaoism. She lives at home alone and is [...] no Dental clearance: Completed and scanned in [facility] PPM: No Anticoagulation: Coumadin- Last dose taken 04/27/2024 Contrast Allergy: no Surgeon Note 03/25/2024 KCCQ-12: 03/25/2024 15 Ft W: 03/25/2024 PLAN AND RECOMMENDATIONS: Haydee Bustamante is scheduled for TF-TAVR on 05/02/[address] Saeed Instructed to go to AorTx J1-1 REGISTRATION TODAY, after all appointment to register for the procedure. ON THE PROCEDURE DAY 05/03/2024, Report to AorTx J1-2 at 8:30. Instructions: The Evening Before [...] into surgery. - No make-up or nail new zealander. - No jewelry, including watches, wedding rings and any body jewelry. // Questions about preparing for your procedure? Call your doctors office: Dr. Orlin Meyer [phone] Dr. Gallito Cortez [phone] Dr. Jason Olea [phone] Dr. Juvencio Saeed [phone] Interventional Discharge Readiness Tool Your Anticipated Discharge Needs: If you are discharged the same day -You must have accommodations in [place] (if you live over 2 hours away) [...] your risk of future heart problems. For [facility] call [phone] to schedule after you are home from your procedure. If you do not receive your referral, please call your clinical supervisor's office for the order. I spent a total of 35 minutes on the date of the service which included preparing to see the patient, pnru-se-scsf patient care, completing clinical documentation, obtaining and/or reviewing separately obtained history, performing a medically appropriate examination, counseling and educating the pat ient/family/caregiver, and communicating results to the patient/family/caregiver. Monica Aguila APRN.COAT OPERATOR INSULATOR documented in this encounterShelby Memorial Hospital03-12-2025 History of Present illness Narrative* Ursula [...] PATIENT PRESENTS WITH AN IMPLANTABLE OR ATTACHED ELECTRIC ACCOUNTING MACHINE OPERATOR: No RADIOLOGY DEPARTMENT: General X-ray: Exam(s) Completed: Chest X-Ray PERIPHERAL IV DATA: Not applicable SIGNED BY: RT Leslie(R) April 30, 2024 11:27 AM documented in this encounterShelby Memorial Hospital03-03-2025 History of Present illness Narrative* Geno Hart MD - 04/21/2024 11:00 AM EST Patient presents with: Disseminated histoplasmosis : Recurrent due to immunosuppression HPI: 78-year-old woman with 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 This recurrence was found as it was starting to be worked up by her concrete products dispatcher in February 2023 and we started therapy again when she was transferred to [facility] Due to massive hemoptysis found out to be COVID-positive. She was treated with remdesivir and dexamethasone and then put back on itraconazole March 19 for her histoplasma recurrence. She had previous disseminated histoplasmosis [facility] Currently doing [...] be getting a TAVR next week at [facility] due to aortic valve problems. [...] 11/22/2023 COVID-19 vaccine, age 12+ yr, bivalent ([employer]BION[employer]charrer) 11/10/2021 TD Adult 11/06/2019 diphtheria tetanus (DT) [...] (FLONASE) 50 mcg/actuation nasal spray Use 1 [place] in each nostril once daily. 3 Each 3 vit A,C,I-Vktc-Yxfmgc (OCUVITE PRESERVISION) 2,148 mcg-113 mg-45 mg-17.4mg tab [...] ([facility]) 03/07/2015 Dr. Hurley ([facility]) Tricuspid regurgitation PAST SURGICAL HISTORY Procedure [...] SPINE FUSN,POST INTERBODY 2011 Dr. Armando at [facility]. Diskectomy and laminectomy PAST SURGICAL HISTORY OF 03/07/1999 removal facial lesion PAST SURGICAL HISTORY OF 08/17/2014 excision soft tissue mass left index finger TONSILLECTOMY PRIMARY/SECONDARY <AGE 12 TRANSCATH RETRIEVAL,PERCUT 12/28/2006 ACTIVE PROBLEM LIST Esophageal Reflux Meralgia Paresthetica Other Voice and Resonance Disorders Arthropathy, Unspecified, Site Unspecified Elevated Liver Enzymes Yard Associate Current Use of Anticoagulant Therapy Hnp (Herniated [...] 6 months (around 10/22/2024). documented in this encounterShelby [facility] Hospital02-26-2025 History of Present illness Narrative* Leandra Venegas APRN.AMUSEMENT RIDE OPERATOR - 04/16/2024 9:13 AM EST Images from the original note were not included. documented in this encounterShelby Memorial Hospital02-25-2025 History of Present illness Narrative* Leandra [...] with her local dentist. Jasmyn Feltonmaria e [facility] [phone] Pacemaker evaluation: N/A Shante, Please schedule Haydee Bustamante [phone] for COMMERCIAL TF- TAVR ( CARLYN) Procedure on: Thursday May 02, 2024 Lab/CXR/EKG Appointment: SundayApril 30 Please schedule STRUCTURAL VALVE CLINIC Visit on: SundayApril 30 Date of J4-1 Anesthesia only: SundayApril [address] lab schedule on : Thursday May 02, 2024 at 8:30 AM CPT Code: 47593 Diagnosis Code: I35.0 BRINE SUPERVISOR: Dr. Saeed Performing Physician: Dr. Saeed OR: 81 Surgeon: Dr. Francis Please schedule bed reservation for post procedure-(should be a TCI) EVAN schedule- intra/op Patient also needs INSURANCE PRECERTIFICATION ADL SCORE___6 SURVIVAL RATE GREATER THAN 1 YEAR____Y___(LOOKING FOR A YES) EF ___N__(GREATER THAN 50%) Thank you. Leandra Venegas APRN.CNS Request sent to scheduling. documented in this encounterShelby [facility] Hospital02-25-2025 Telephone encounter Note * Telephone Encounter - Leandra Venegas APRN.CNS - 04/15/2024 12:12 PM EST Tried to call patient to schedule TAVR procedure. Left message for her to call the office. Leandra Venegas APRN.CNS [facility]02-25-2025 Miscellaneous Notes* Telephone Encounter - Leandra Venegas APRN.CNS - 04/15/2024 12:12 PM EST Tried to call patient to schedule TAVR procedure. Left message for her to call the office. 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 [employer] and she has a goal to get [...] were you homeless or living in a fci (including now)?: No Transportation Needs In the [...] have money to get more.: Never true [facility] In the past 12 months has the [...] Contact Your Physician Team Disposition Based on cloth shrinking machine operator, the following disposition is advised: No action needed Pili Benitez RN April 14, 2024 4:01 PM documented in this encounterShelby Memorial Hospital02-15-2025 History of Present illness Narrative* Juvencio Saeed MD - 04/05/2024 4:01 PM EST Interventional Cardiology Staff Note Dr. Saeed receives payments from several device companies for educational activities, advisory boardduties, consulting, and/or proctoring. The companies include: [employer], [employer], and [employer]. A product by [employer], [employer], [employer], or a competitor, may be used in this patient's care. Dr. Saeed does not receive any money for products he or any other [facility] physicians prescribe or use. Dr. Saeed's choice on which product used in this patient's case is or was not influenced by his relationship with any company. Dr. Saeed selected the product that in his hands is believed to be the best option for this patient's treatment. This was discussed with the patient. Juvencio Saeed MD, MSc documented in this encounterShelby Memorial Hospital02-14-2025 History of Present illness Narrative* Tracey Heller APRN.SANTY - 04/04/2024 6:21 AM EST Bay Heller APRN.COAT OPERATOR INSULATOR * Melissa Means RN - 04/03/2024 1:48 PM EST patient had inr completed at [facility] patients inr is 1.7 (patients inr range [...] for follow up INR. documented in this encounterShelby Memorial Hospital02-13-2025 Telephone encounter Note * Telephone Encounter [...] a TAVR. Alisa Allen RN, BSN Nurse Road Worker for Dr. Bartolome Francis [facility]02-13-2025 Miscellaneous Notes* Telephone Encounter - Alisa [...] a TAVR. Alisa Allen RN, BSN Nurse Road Worker for Dr. Bartolome Francis * Telephone Encounter - Enrique, Karen - 04/02/2024 1:44 PM EST Images from the original note were not included. LOCAL PATIENT Received [place] Email from Dr. Christophe Bustamante is being [facility] [address] Patient diagnosis/Reason for consult: Aortic Valve Stenosis; Chronic Heart Failure Referral triage process explained: N/A Patient will receive a call from Cardiac NPM after triage review with surgeon to discuss any additional testing and/or consults that will be scheduled. Pt will then receive a call from our scheduling office for scheduling. Please call pt at [phone]. Patient Registration: Registration complete/updated: yes Insurance card(s) scanned in epic with in the past year: Yes: Date: 10/18/2023 Pt's MyChart is active. Ok to communicate to pt via Work4hart not asked Medical Records: Records in Epic (internal CC records): Yes Imaging in Epic (internal CC records): Yes Care Everywhere - queried yes, downloaded Yes Linked Outside Organizations (list): Additional providers added to Care Teams: Yes Additional Notes/Comments: Internal Referral Enct routed to: Yes, Cardiac NPM for triage Karen Nunez documented in this encounterShelby Memorial Hospital02-12-2025 Telephone encounter Note * Telephone Encounter - Karen Nunez - 04/02/2024 1:44 PM EST Images from the original note were not included. LOCAL PATIENT Received [place] Email from Dr. Christophe Bustamante is being referred to Bartolome Francis M.D. by Juvencio Saeed [address] [facility] [address] Patient diagnosis/Reason for consult: Aortic Valve Stenosis; Chronic Heart Failure Referral triage process explained: N/A Patient will receive a call from Cardiac NPM after triage review with surgeon to discuss any additional testing and/or consults that will be scheduled. Pt will then receive a call from our scheduling office for scheduling. Please call pt at [phone]. Patient Registration: Registration complete/updated: yes Insurance card(s) scanned in epic with in the past year: Yes: Date: 10/18/2023 Pt's Work4hart is active. Ok to communicate to pt via [employer] not asked Medical Records: Records in Epic (internal CC records): Yes Imaging in Epic (internal CC records): Yes Care Everywhere - queried yes, downloaded Yes Linked Outside Organizations (list): Additional providers added to Care Teams: Yes Additional Notes/Comments: Internal Referral Enct routed to: Yes, Cardiac NPM for triage Karen Nunez [facility]02-12-2025 Telephone encounter Note* Telephone Encounter - HoffmannDavid higgins - 04/02/2024 9:16 AM EST IN [facility] Work Phone: [phone] Miscellaneous Notes* Telephone Encounter - David Hoffmann - 04/02/2024 9:16 AM EST IN * Telephone Encounter - Karen Nunez - 04/01/2024 4:53 PM EST Insurance Card(s) scanned into [email or web address] Please register/advise Thank You! documented in this encounterShelby Memorial Hospital02-11-2025 Telephone encounter Note * Telephone Encounter - Karen Nunez - 04/01/2024 4:53 PM EST Insurance Card(s) scanned into [email or web address] Please register/advise Thank You! [facility]02-10-2025 History of Present illness Narrative* Estefania Ervin APRN.COAT OPERATOR INSULATOR - 03/31/2024 12:02 PM EST [facility] Department of Cardiovascular Medicine SECTION [...] be handled by: CVM coordinator Estefania Ervin APRN.COAT OPERATOR INSULATOR documented in this encounterShelby Memorial Hospital02-10-2025 History of Present illness Narrative* Yu [...] 31, 2024 10:42 AM documented in this encounterShelby Memorial Hospital02-05-2025 History of Present illness Narrative* Yu [...] 26, 2024 9:38 AM documented in this encounterShelby Memorial Hospital02-04-2025 History of Present illness Narrative* Bartolome Francis MD - 03/25/2024 3:45 PM EST Images from the original note were not included. [facility] DEPARTMENT OF CARDIAC SURGERY OUTPATIENT VISIT DATE March 25, 2024 OUTPATIENT VISIT SERVICE DATE: 03/25/2024 SERVICE TIME: 3:45 PM PCP: Claudine Durán [address] [place] [address] Referring Physician: Monica Aguila [address] [facility] [address] Patient Type: Consult Visit to determine Surgery: [...] the report.Minimum luminal diameter throughout: 7 mm Life Science Teacher: KRYSTAL Transcribe Date/Time: Mar 21 2024 11:22A [...] record Bartolome Francis MD documented in this encounterShelby Memorial Hospital02-04-2025 Instructions* Patient Instructions* Monica Aguila APRN.COAT OPERATOR INSULATOR - 03/25/2024 11:06 AM EST Destinee Lozano [...] your risk of future heart problems. For [facility] call [phone] to schedule after you are home from your procedure. If you do not receive your referral, please call your clinical supervisor's office for the order. We also discussed [...] Kindly, Monica Aguila APRN.CNP documented in this encounterShelby Memorial Hospital02-04-2025 History of Present illness Narrative* Monica Aguila APRN.CNP - 03/25/2024 11:00 AM EST Images from the original note were not included. [facility] Department of Cardiovascular Medicine SECTION OF INTERVENTIONAL CARDIOLOGY OUTPATIENT VISIT DATE March 25, 2024 OUTPATIENT VISIT TYPE ESTABLISHED FOLLOW UP Primary Flyer Maker: Dr. Saeed Chief Complaint: Patient here for [...] I have personally reviewed the above testing. PAOLI CARDIOMYOPATHY QUESTIONNAIRE (KCCQ-12) Activity: A. Showering/bathing: Extremely [...] for other reasons. 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 For [facility] call [phone] to schedule after you are home from your procedure. If you do not receive your referral, please call your clinical supervisor's office for the order. We also discussed [...] which included preparing to see the patient, wxuc-zl-mzih patient care, completing clinical documentation, obtaining and/or reviewing separately obtained history, counseling and educating the patient/family/caregiver, independently interpretin g results (not separately reported), and communicating results to the patient/family/caregiver. Monica Aguila APRN.CNP documented in this encounterShelby [facility]02-04-[facility]25 History of Present illness Narrative* Chacho Anaya RRT - 03/25/2024 9:43 AM EST PULM FUNCTION: Provider: Monica Aguila APRN.CNP Spirometry: 1 DLCO: 1 J- LAB # 1 - PFT documented in this encounterShelby [facility] Hospital02-04-2025 History of Present illness Narrative* Ken [...] PATIENT PRESENTS WITH AN IMPLANTABLE OR ATTACHED ELECTRIC ACCOUNTING MACHINE OPERATOR: No CREATININE: Creatinine Date Value Ref Range [...] information regarding radiation safety can be found usingApiarys link: [email or web address] SIGNATURE: RT Howie(R) PATIENT NAME: Haydee Bustamante DATE: March 25, 2024 TIME: 8:38 AM PAGER/CONTACT #: documented in this encounterShelby [facility] Hospital02-02-2025 Telephone encounter Note * Telephone Encounter [...] M Kolodny, RN. In Department of CARDIOLOGY. [facility]02-02[facility] Miscellaneous Notes* Telephone Encounter - Caitlin [...] In Department of CARDIOLOGY. documented in this encounterShelby Memorial Hospital01-31-2025 History of Present illness Narrative* Yu Torres MA - 03/21/2024 2:37 PM EST POPULATION HEALTH NAVIGATION OUTREACH Action/FYI Last OV: 02/29/2024 No upcoming appts noted. Last Wellness Exam: Unknown Patient is due for: Annual Wellness Outcome: Left VM for patient to return call to schedule appointment/address care gaps. Work4hart message sent. Reason for Outreach Care Gap/HCC or Scheduling Wellness Visits Care Gaps due: Medicare Annual Wellness Visit Patient Contacted: Unable or unnecessary to reach patient: Left message MyChart message sent Navigation Signature: Yu Torres MA March 21, 2024 2:37 PM documented in this encounterShelby [facility] Hospital01-31-2025 History of Present illness Narrative* Ursula [...] PATIENT PRESENTS WITH AN IMPLANTABLE OR ATTACHED ELECTRIC ACCOUNTING MACHINE OPERATOR: No RADIOLOGY DEPARTMENT: General X-ray: Exam(s) Completed: Chest X-Ray PERIPHERAL IV DATA: Not applicable SIGNED BY: RT Leslie(Ade) March 21, 2024 11:38 AM documented in this encounterShelby Memorial Hospital01-31-2025 History of Present illness Narrative* Candace [...] PATIENT PRESENTS WITH AN IMPLANTABLE OR ATTACHED ELECTRIC ACCOUNTING MACHINE OPERATOR: No RADIOLOGY DEPARTMENT: CT; Exam(s) Completed: Cardiac PERIPHERAL IV DATA: Site assessment: Clean,Dry and Intact, Site disposition Discontinued SIGNED BY: RT Clark(R) March 21, 2024 10:53 AM documented in this encounterShelby Memorial Hospital01-31-2025 History of Present illness Narrative* Juvencio Saeed MD - 03/21/2024 9:30 AM EST Heart and Vascular [facility] Department of Cardiovascular Medicine SECTION OF INTERVENTIONAL CARDIOLOGY OUTPATIENT VISIT DATE March 21, 2024 OUTPATIENT VISIT TYPE NEW PRIMARY CARE PHYSICIAN: Claudine Durán [address] [place] [address] REFERRING PHYSICIAN: No referring provider defined for [...] neighbors and friends - very active in hoahaoism community. She denies chest pain, shortness of [...] ([facility]) 03/07/2015 Dr. Hurley ([facility]) Tricuspid regurgitation PAST SURGICAL HISTORY Procedure [...] SPINE FUSN,POST INTERBODY 2012 Dr. Armando at [facility]. Diskectomy and laminectomy PAST SURGICAL HISTORY OF [...] fluticasone (FLONASE) 50 mcg/actuation nasal spray^Use 1 [place] in each nostril once daily.^Disp: 3 Each^Rfl: 3 vit A,C,Q-Jrdt-Mnpoyq (OCUVITE PRESERVISION) 2,148 mcg-113 mg-45 mg-17.4mg tab^Take [...] ECG GFR: 94 IMPRESSION AND RECOMMENDATIONS: Haydee Bustamanet is a 78 year old female with [...] CTS assessment. [facility] I personally interviewed, confirmed and edited the above information as obtained by others. Juvencio Saeed M.D., M.Sc., F.A.C.C., F.S.C.A.I. Staff, Interventional Cardiology [facility] Desk [facility], [address] [place] [address] Office , toll-free [phone], [phone] Office Appointments: [phone], toll-free [phone], [phone] documented in this encounterShelby Memorial Hospital01-10-2025 Instructions* Patient Instructions* Claudine Durán MD - 02/29/2024 5:43 PM EST .aisavs documented in this encounterShelby Memorial Hospital01-10-2025 History of Present illness Narrative* Claudine Durán MD - 02/29/2024 5:23 PM EST This note was created using GenY Mediumter. Subjective Haydee Bustamante is a 78 year [...] and was restarted on methotrexate by her arborist representative, Dr. Jane Montoya. She was also prescribed [...] flu vaccines on the same day at [facility]. She reports some anxiety related to her upcoming surgery and recent life events, including a changein her email and bank account. She has a support system in place, including a friend who will accompany her to appointments and a medical power of employment attorney. She has advanced directives on file. She denies severe depression but reports being in a bad mood recently due to stress from her responsibilities with the [employer]. PAST MEDICAL HISTORY Diagnosis Date Anemia [...] ([facility]) 03/07/2015 Dr. Hurley ([facility]) Unspecified hemorrhoids without mention of complication [...] (FLONASE) 50 mcg/actuation nasal spray Use 1 [place] in each nostril once daily. vit A,C,H-Nrns-Twowbq (OCUVITE PRESERVISION) 2,148 mcg-113 mg-45 mg-17.4mg tab [...] Under management by Dr. Jane Montoya at [facility]. - Resumed methotrexate and initiated sulfasalazine [...] time. Claudine Durán MD documented in this encounterShelby Memorial Hospital01-10-2025 History of Present illness Narrative* Melissa Means RN - 02/29/2024 3:45 PM EST patient had inr completed at [facility] patients inr is 2.0 (patients inr range [...] for follow up INR. documented in this encounterShelby Memorial Hospital01-02-2025 Telephone encounter Note * Telephone Encounter - Jannet Aladna RN - 02/21/2024 8:31 AM EST Patient [...] Please review and advise. Jannet Aldana RN [facility] Work Phone: 1(239) 242-104801-02-2025 Miscellaneous Notes* Telephone Encounter - Jannet Aldana [...] advise. Jannet Aldana RN documented in this encounterShelby Memorial Hospital12-12-2024 History of Present illness Narrative* Jimbo Swanson APRN.AMUSEMENT RIDE OPERATOR - 01/31/2024 4:15 PM EST Continue with Coumadin dose unchanged and check INR in 4 weeks * Melissa Means RN - 01/31/2024 2:06 PM EST patient had inr completed at [facility] patients inr is 1.9 (patients inr rnage [...] for follow up INR. documented in this encounterShelby Memorial Hospital12-10-2024 History of Present illness Narrative* Ilda Miller RN - 01/29/2024 2:57 PM EST [facility] Telephonic Outreach Provider Action/FYI N/A 2nd [...] more often than normal? No Based on cloth shrinking machine operator, the following disposition is advised: No symptoms or symptoms present, not severe. Routed to: No Action Needed PAN Education Provided this Outreach: No Appointments for Next 60 Days Date Time Provider Location Dept Phone 01/31/2024 10:30 AM FAWAD [facility] [phone] 02/29/2024 3:40 PM CLAUDINE DURÁN [facility] [phone] Ilda Miller RN January 29, 2024 3:01 [...] goal align with programs offered at the [facility]? No Patient accepts telephonic outreach. PAN [...] stressful. Can we connect you with a [facility] Customer Experience Strategist to find a program that could help you meet your goals? No Falls completed:Yes ADL's updated: Yes Ilda Miller RN January 29, 2024 3:32 PM documented in this encounterShelby Memorial Hospital12-02-2024 History of Present illness Narrative* Ilda Miller RN - 01/21/2024 1:25 PM EST [facility] Telephonic Outreach Provider Action/FYI N/A Contacted for: Routine Telephonic Outreach Contact made with patient: No, left message. Ilda Miller RN January 21, 2024 1:28 PM Goals/Falls/ADL Update Contact made with patient: No, left message. Ilda Miller RN January 21, 2024 1:28 PM documented in this encounterShelby Memorial Hospital11-21-2024 History of Present illness Narrative* Jimbo Swanson APRN.CNS - 01/10/2024 12:45 PM EST Coumadin 6mg and Sunday and 5mg all other days and recheck in 3 weeks due to the cc is closed at the 2 week jasmyn * Melissa Means RN - 01/10/2024 12:39 PM EST patient had inr completed at [facility] patients inr is 1.5 (patients inr [...] not agree with recommendation documented in this encounterShelby Memorial Hospital11-19-2024 Note* Addendum Note - Monica Aguila APRN.CNP - 01/08/2024 4:18 PM ESTAddended by: MONICA AGUILA on: 01/08/2024 04:18 PM Modules accepted: Orders [facility]11-19-2024 Miscellaneous Notes* Addendum Note - Monica Mccormick APRN.CNP - 01/08/2024 4:18 PM ESTAddended by: MONICA MCCORMICK on: 01/08/2024 04:18 PM Modules accepted: Orders documented in this encounterShelby Memorial Hospital11-19-2024 History of Present illness Narrative* Monica Aguila APRN.CNP - 01/08/2024 9:30 AM EST [facility] STRUCTURAL REVIEW FORM Orders placed by: Dr. Roche on 01/02/2024 Records Reviewed: 01/08/2024 Appt request sent: 01/08/2024 Records in [employer] have been reviewed. Severe . Request has been sent to the scheduler maintenance who will arrange an appointment schedule. Please [...] greater, then it should be by an Wellness Director ONLY (Dr. Cota, , Dr. Olea, Dr. [...] Gan/Dr. Anjali Aguila APRN.CNP documented in this encounterShelby Memorial Hospital11-15-2024 Telephone encounter Note * Telephone Encounter [...] Hart MD 01/04/2024 2:33 PM pgr [id number] [facility]11-15-[facility]24 Miscellaneous Notes* Telephone Encounter - Geno [...] 2:33 PM pgr [id number] documented in this encounterShelby Memorial Hospital11-13-2024 History of Present illness Narrative* Lili Roche MD - 01/02/2024 9:45 AM EST Images from the original note were not included. Heart, Vascular, and Thoracic [facility] Department of Cardiovascular Medicine SECTION [...] 2019 with steadily rising gradients referred to [facility] for intervention -Followed by Dr. Hart from [place] for histoplasmosis, recent labs 12/19 show histo antigen negative -Followed by Dr. Messina from [facility] for and pericardial effusion last seen 08/27/23, then by Raji ROSALES 10/18/23 - awaiting evaluation for aortic valve intervention. Referred to [facility] for further management. Patient reports at baseline she is very limited due to joint pain in hands, wrists everywhere since being off RA treatment for histo. She uses cane in clinic today - seen in wheelchair. Reports at baseline lives at home alone with help from neighbors and friends - very active in hoahaoism community.No family close by. No reported cardiac [...] factor (HCC) 03/07/2015 Dr. Hurley ([facility]) Unspecified hemorrhoids without mention of complication [...] SPINE FUSN,POST INTERBODY 2011 Dr. Armando at [facility]. Diskectomy and laminectomy PAST SURGICAL HISTORY OF [...] (FLONASE) 50 mcg/actuation nasal spray Use 1 [place] in each nostril once daily. pantoprazole DR (PROTONIX) 40 mg tablet Take 1 tablet by mouth once daily. vit A,C,A-Axdl-Wfctoh (OCUVITE PRESERVISION) 2,148 mcg-113 mg-45 mg-17.4mg tab [...] We recommend a follow-up with [facility] clinic. DR. FRED STONE, SR[facility] HOSPITAL STAFF PHYSICIAN NOTE OF PERSONAL INVOLVEMENT [...] of Cardiovascular Medicine Heart, Vascular and Thoracic [facility] Desk [id number] [place] [address] Office - [phone] extension [phone] Office E-mail: [email or web address] Appointments: [phone] extension [phone] documented in this encounterShelby Memorial Hospital11-07-2024 History of Present illness Narrative* Jimbo Swanson APRN.CNS - 12/27/2023 2:01 PM EST Coumadin 6mg Thurs and 5mg all other days and recheck in 2 weeks * Melissa Means RN - 12/27/2023 12:19 PM EST patient had inr completed at [facility] patients inr is 1.5 (patients inr range [...] not agree with recommendation documented in this encounterShelby Memorial Hospital10-31-2024 History of Present illness Narrative* Rosa Wallace RN - 12/20/2023 11:22 AM EDT [facility] Telephonic Outreach Provider Action/FYI Contacted for: Engagement Contact made with patient: Yes Patient identified by name and date of . Discussed care with patient Outcomes: Patient switched from [facility] to telephone outreach Are you experiencing any new or worsening symptoms you need to talk about today? No Based on cloth shrinking machine operator, the following disposition is advised: No symptoms or symptoms present, not severe. Routed to: No Action Needed PAN Education Provided this Outreach: No Rosa Wallace RN December 20, 2023 11:29 AM documented in this encounterShelby Memorial Hospital10-31-2024 Telephone encounter Note * Telephone Encounter - Jimbo Swanson APRN.CNS - 12/20/2023 7:12 AM EDT ok [facility]10-31-20[facility] Miscellaneous Notes* Telephone Encounter - Jimbo [...] and send to pharmacy. documented in this encounterShelby Memorial Hospital10-30-2024 History of Present illness Narrative* Rosa Wallace RN - 12/19/2023 3:54 PM EDT [facility] Telephonic Outreach Provider Action/SHAYNE Contacted for: Engagement Contact made with patient: No, left message. Rosa Wallace RN December 19, 2023 3:57 PM documented in this encounterShelby Memorial Hospital10-30-2024 Telephone encounter Note * Telephone Encounter [...] Please update prescription and send to pharmacy. [facility]10-29-[facility] History of Present illness Narrative* Geno Hart MD - 12/18/2023 11:00 AM EDT Patient presents with: Disseminated histoplasmosis : Follow-up on itraconazole HPI: 78-year-old woman immunosuppressed due to rheumatoid arthritis on Biologics, COPD with bronchiectasis, previously treated by [facility] for disseminated histoplasmosis and did well. In February 2023 was transferred here from [facility] with massive hemoptysis found out to be [...] relatively normal. She still active with her hoahaoism and at meetings and professional organizations and [...] (FLONASE) 50 mcg/actuation nasal spray Use 1 [place] in each nostril once daily. [address] (PROTONIX) 40 mg tablet Take 1 tablet by mouth once daily. 90 tablet 3 vit A,C,H-Fxwp-Ujogvh (OCUVITE PRESERVISION) 2,148 mcg-113 mg-45 mg-17.4mg tab [...] ([facility]) 03/07/2015 Dr. Hurley ([facility]) Unspecified hemorrhoids without mention of complication [...] SPINE FUSN,POST INTERBODY 2011 Dr. Armando at [facility]. Diskectomy and laminectomy PAST SURGICAL HISTORY OF 03/07/1999 removal facial lesion PAST SURGICAL HISTORY OF 08/17/2014 excision soft tissue mass left index finger TONSILLECTOMY PRIMARY/SECONDARY <AGE 12 TRANSCATH RETRIEVAL,PERCUT 12/28/2006 ACTIVE PROBLEM LIST Esophageal Reflux Meralgia Paresthetica Other Voice and Resonance Disorders Arthropathy, Unspecified, Site Unspecified Elevated Liver Enzymes Penitentiary Current Use of Anticoagulant Therapy Hnp (Herniated [...] reports reviewed. Great deal of time spent etky-lv-eeux with the patient mostly in discussion Return in about 4 months (around 04/18/2024). documented in this encounterShelby Memorial Hospital10-24-2024 History of Present illness Narrative* Jimbo Swanson APRN.AMUSEMENT RIDE OPERATOR - 12/13/2023 4:22 PM EDT Coumadin 6 mg and 5 mg all other days and check INR in 2 weeks. * Melissa Means, RN - 12/13/2023 1:17 PM EDT patient had inr completed at [facility] patients inr is 1.4 (patients inr range [...] an rx for 1mg coumadin sent to [facility] (rx has been pended for approval) please review and advise on recommendation patient only needs called if provider does not agree with recommendation documented in this encounterShelby Memorial Hospital10-22-2024 Telephone encounter Note * Telephone Encounter [...] Mann LPN December 11, 2023 3:42 PM [facility]10-22-2024 Miscellaneous Notes* Telephone Encounter - Lynne [...] 11, 2023 3:42 PM documented in this encounterShelby Memorial Hospital10-10-2024 History of Present illness Narrative* Jimbo Swanson APRN.CNS - 11/29/2023 3:00 PM EDT Coumadin 5 mg daily and check INR in 2 weeks * Melissa Means RN - 11/29/2023 12:35 PM EDT patient had inr completed at [facility] patients inr is 2.3 (patients inr range [...] not agree with recommendation documented in this encounterShelby Memorial Hospital10-07-2024 Telephone encounter Note * Telephone Encounter - Jannet Aldana RN - 11/26/2023 2:38 PM EDT Patient cannot come in this week, she has been rescheduled to 12-17. Jannet Aldana RN [facility] Work Phone: [phone] Miscellaneous Notes* Telephone Encounter - Jannet Aldana [...] 11/26/2023 10:38 AM EDT Labs received from [facility] that will be scanned. They recommended a follow up with ID due toCRP 7.8 mg/dL and ESR 93 mm/hr. Patient is scheduled on 01-08-24. Should her appointment be scheduled sooner? Thank you, Jannet Aldana RN documented in this encounterShelby Memorial Hospital10-07-2024 Telephone encounter Note * Telephone Encounter - Jannet Aldana RN - 11/26/2023 1:07 PM EDT Voicemail left for patient to return call. Jannet Aldana RN [facility]10-07-2024 Telephone encounter Note* Telephone Encounter - [...] week around December 16 through December 20. [facility] Work Phone: [phone] Telephone encounter Note* Telephone Encounter - Jannet Aldana RN - 11/26/2023 10:38 AM EDT Labs received from [facility] that will be scanned. They recommended a follow up with ID due toCRP 7.8 mg/dL and ESR 93 mm/hr. Patient is scheduled on 01-08-24. Should her appointment be scheduled sooner? Thank you, Jannet Aldana RN [facility]09-26-2024 Telephone encounter Note* Telephone Encounter - Jimbo Swanson APRN.CNS - 11/15/2023 4:53 PM EDT ok [facility]09-26-2024 Miscellaneous Notes* Telephone Encounter - Jimbo [...] can not be approved. documented in this encounterShelby Memorial Hospital09-26-2024 Telephone encounter Note * Telephone Encounter - Melissa Means RN - 11/15/2023 12:26 PM EDT patients orders for coumadin clinic inr's has at this time. new order has been pended for approval if possible so that patient can continue to get inr's completed thru the coumadin clinic. coumadin clinic nurse only needs called if order can not be approved. [facility]09-26-20[facility] History of Present illness Narrative* Melissa Means RN - 11/15/2023 12:24 PM EDT patient had inr completed at [facility] patients inr is 2.1 (patients inr range [...] reading since dose change documented in this encounterShelby Memorial Hospital09-19-2024 History of Present illness Narrative* Melissa Means RN - 11/08/2023 4:20 PM EDT pcp agrees with information * Melissa Means RN - 11/08/2023 2:00 PM EDT patient had inr completed at [facility] patients inr is 2.8 (patients inr range is 1.7-2.2) patient is currently taking 7.5mg Tues,Thurs and 5mg all other days per [employer] SALESPERSON Swanson patients last dose change was on [...] not agree with recommendation documented in this encounterShelby Memorial Hospital09-16-2024 Telephone encounter Note * Telephone Encounter - Claudine Durán MD - 11/05/2023 4:53 PM EDT The following approved medication requests have been transmitted electronically. Requested Prescriptions Pending Prescriptions Disp Refills itraconazole (SPORANOX) 10 mg/mL solution 1200 mL 0 Sig: Take 20 mL by mouth two times a day. Claudine Durán MD [facility]09-16-2024 Miscellaneous Notes* Telephone Encounter - Claudine [...] day. ALLERGIES Allergen Reactions Penicillins Hives (home) [phone] (cell) Last Office Visit Date: 10/11/2023 Last [facility] Visit: Visit date not found Future Appointment: 02/29/2024 The patients preferred pharmacy has been captured for this encounter? yes Request is for script(s) to be escript to pharmacy. Yessica Pelayo LPN documented in this encounterShelby Memorial Hospital09-16-2024 Telephone encounter Note * Telephone Encounter - Yessica Pelayo LPN - 11/05/2023 11:28 AM EDT Patient MyChart message requesting the following refill Refill(s) Requested: Requested Prescriptions Pending Prescriptions Disp Refills itraconazole (SPORANOX) 10 mg/mL solution 1200 mL 0 Sig: Take 20 mL by mouth two times a day. ALLERGIES Allergen Reactions Penicillins Hives (home) [phone] (cell) Last Office Visit Date: 10/11/2023 Last [facility] Visit: Visit date not found Future Appointment: 02/29/2024 The patients preferred pharmacy has been captured for this encounter? yes Request is for script(s) to be escript to pharmacy. Yessica Pelayo LPN [facility]09-10-2024 Telephone encounter Note* Telephone Encounter - Ashley Rahman MA - 10/30/2023 2:51 PM EDT Forms were successfully faxed to [phone] to [facility]. Form placed in PSS basket for scanning. [facility]09-10-2024 Miscellaneous Notes* Telephone Encounter - Ashley Rahman MA - 10/30/2023 2:51 PM EDT Forms were successfully faxed to [phone] to [facility]. Form placed in PSS basket for scanning. documented in this encounterShelby Memorial Hospital09-06-2024 History of Present illness Narrative* Yesenia Weinstein LPN - 10/26/2023 3:59 PM EDT Patient was given coumadin instructions and verbalized understanding. * Jimbo Swanson APRN.CNS - 10/25/2023 3:30 PM EDT Recommend Coumadin 7.5 Sunday and and 5 mg all other days. Check INR in 2 weeks * Melissa Means RN - 10/25/2023 12:34 PM EDT patient had inr completed at [facility] patients inr is 1.3 (patients inr range [...] not agree with recommendation documented in this encounterShelby Memorial Hospital09-04-2024 Telephone encounter Note * Telephone Encounter - Claudine Durán MD - 10/24/2023 5:14 PM EDT The following approved medication requests have been transmitted electronically. Requested Prescriptions Signed Prescriptions Disp Refills warfarin (COUMADIN) 5 mg tablet 90 tablet 3 Sig: Take 1 tablet by mouth once daily. or as directed Authorizing Provider: CLAUDINE DURÁN MD [facility]09-04-2024 Miscellaneous Notes* Telephone Encounter - Claudine [...] you. Maritza Preston LPN. documented in this encounterShelby Memorial Hospital09-03-2024 Telephone encounter Note * Telephone Encounter [...] Please advise. Thank you. Maritza Preston LPN. [facility]08-30-2024 History of Present illness Narrative* Melissa Means RN - 10/19/2023 3:22 PM EDT pcp agrees with information * Melissa Means RN - 10/19/2023 11:54 AM EDT patient had inr completed at [facility] patients inr is 1.1 (patients inr range [...] not agree with recommendation documented in this encounterShelby Memorial Hospital08-29-2024 Instructions* Patient Instructions* Bibi Alegria APRN.CNP [...] your appointment with the valve team at [facility]. 5. Follow up with Dr. Messina in 3-4 months with echo prior documented in this encounterShelby Memorial Hospital08-29-2024 History of Present illness Narrative* Bibi Alegria APRN.CNP - 10/18/2023 10:00 AM EDT Images from the original note were not included. Heart and Vascular [facility] Department of Cardiovascular Medicine SECTION OF CLINICAL CARDIOLOGY OUTPATIENT VISIT DATE October 18, 2023 OUTPATIENT VISIT TYPE ESTABLISHED PRIMARY CARE PHYSICIAN: Claudine Durán [address] [place] [address] CHIEF COMPLAINT: 1 month follow up HISTORY [...] who referred her to valve clinic at [facility]. She denies any chest pain, palpitations, sh ortness of breath, lightheadedness, dizziness, presyncope, syncope, orthopnea, or PND. Subjective PAST MEDICAL HISTORY No date: Anemia Comment: Bone marrow involvement with histoplasmosis No date: Bronchiectasis ([facility]) No date: COPD (chronic obstructive pulmonary disease) ([facility]) No date: Disseminated histoplasmosis Comment: Colitis, immunosuppression, 01/2018. No date: Diverticulosis of colon (without mention of hemorrhage) Comment: Diverticulosis 12/10/2014: DVT, recurrent, lower extremity, acute ([facility]) No date: Esophageal reflux 02/25/2018: Hiatal hernia No date: Hypertension No date: Lung nodule No date: Personal history of unspecified urinary disorder 03/07/2015: Rheumatoid arthritis involving multiple sites with positive rheumatoid factor ([facility]) Comment: Dr. Hurley ([facility]) No date: Unspecified hemorrhoids without mention [...] SPINE FUSN,POST INTERBODY Comment: Dr. Armando at [facility]. Diskectomy and laminectomy 03/07/1999: PAST SURGICAL HISTORY [...] fluticasone (FLONASE) 50 mcg/actuation nasal spray^Use 1 [place] in each nostril once daily.^Disp: 3 Each^Rfl: 3 vit A,C,F-Uost-Nizuyx (OCUVITE PRESERVISION) 2,148 mcg-113 mg-45 mg-17.4mg tab^Take [...] ECGS AVAILABLE Confirmed by MD KEESHA, MIRIAN ([id number]) on 03/29/2023 8:55:[address] Result [...] calcified granuloma middle mediastinum. Small hiatal hernia Life Science Teacher: PSCB Transcribe Date/Time: Sep 05 2023 12:56P [...] avoid significant preload depletion - Referred to [facility] for valve intervention by PCP - Will [...] has been referred for valve intervention at [facility] by her PCP and is scheduled to [...] Cardiology Nurse Practitioner Section of Regional Cardiology [facility] Dept of Cardiovascular Medicine [facility] [address] [place] [address] Office Office This note was partially generated using [employer] voice recognition system and may contain errors related to that system including grammar, punctuation, spelling, and words that may be inappropriate documented in this encounterShelby [facility] Hospital08-28-2024 History of Present illness Narrative* Ilda Miller RN - 10/17/2023 3:43 PM EDT CDM Telephonic Outreach Provider Candelaria/SHAYNE N/A Contacted for: Engagement Last questionnaire completed: 08/31/23 My Chart reminder letter sent 10/02/23 No response to date to My Chart questionnaire. Contact made with patient: No, left message. Ilda Miller RN October 17, 2023 3:48 PM documented in this encounterShelby Memorial Hospital08-22-2024 Instructions* Patient Instructions* Jimbo Swanson APRN.CNS - 10/11/2023 1:48 PM EDT Let us know right away if having any chest pain or feeling dizzy or like you could pass out or if you do pass out. Okay to use diclofenac gel on your knees. Try using acetaminophen hydrocodone as needed for pain of your knees. documented in this encounterShelby Memorial Hospital08-22-2024 History of Present illness Narrative* Jimbo [...] bicuspid valve, lung nodule bronchiectasis and COPD. Dairy Associate: Florence Collins MD, for follow-up of lung nodules bronchiectasis. Maintenance Mechanic Engine: Jane Montoya MD [facility]. Not taking Humira or methotrexate due to histoplasmosis, expects treatment to be completed in December. She notes significant knee pain. Has been using mtnq-wzl-dlcutyq topical diclofenac. She was seen by Claudine Durán MD in May 2023 for follow-up appointment after discharge from [facility] after being in TCU after [...] was referred for to orthopedic physician versus arborist representative for this at her earliest convenience. She was then seen by Twyla Cuevas 08/08/2023 for follow-up regarding flareup of rheumatoid arthritisand swelling of her lower legs. She was treated with prednisone tapering dose furosemide 20 mg daily x 5 days, then as needed. She was then admitted to [facility] for GI bleed July 2023. She [...] fluticasone (FLONASE) 50 mcg/actuation nasal spray^Use 1 [place] in each nostril once daily.^Disp: 3 Each^Rfl: [address] (PROTONIX) 40 mg tablet^Take 1 tablet by mouth once daily.^Disp: 90 tablet^Rfl: 3 vit A,C,G-Fuxk-Chwzhz (OCUVITE PRESERVISION) 2,148 mcg-113 mg-45 mg-17.4mg tab^Take [...] positive rheumatoid factor (HCC) Comment: Dr. Hurley ([facility]) No date: Unspecified hemorrhoids without mention [...] the prior CC echocardiographic exam performed on 09/22/2022([facility]). The mitral and aortic valve gradients [...] - CONSULT TO CARDIOLOGY - Dr Roche [facility] 4. Gastrointestinal hemorrhage, unspecified gastrointestinal hemorrhage type [...] Level: 4 - Moderate documented in this encounterShelby Memorial Hospital08-09-2024 Telephone encounter Note * Telephone Encounter [...] Weinstein LPN September 28, 2023 10:21 AM [facility]08-[facility] Miscellaneous Notes* Telephone Encounter - Yesenia [...] 28, 2023 10:21 AM documented in this encounterShelby Memorial Hospital08-08-2024 History of Present illness Narrative* Melissa Means RN - 09/27/2023 3:36 PM EDT pcp agrees with information * Melissa Means RN - 09/27/2023 12:06 PM EDT patient had inr completed at [facility] patients inr is 1.3 (patients inr range [...] recheck after restarting it documented in this encounterShelby Memorial Hospital08-05-2024 History of Present illness Narrative* Claudine Durán MD - 09/24/2023 8:11 AM EDT This note was created using Skeleton Technologiesriter. Subjective Haydee Bustamante is a 78 year old female. Patient presents with: Hospital F/U: [facility] ED/Hospital discharge 08/18/23 SUBJECTIVE: Haydee Bustamante is [...] involvement with histoplasmosis No date: Bronchiectasis ([facility]) No date: COPD (chronic obstructive pulmonary disease) ([facility]) No date: Disseminated histoplasmosis Comment: Colitis, immunosuppression, 01/2018. No date: Diverticulosis of colon (without mention of hemorrhage) Comment: Diverticulosis 12/10/2014: DVT, recurrent, lower extremity, acute ([facility]) No date: Esophageal reflux 02/25/2018: Hiatal hernia No date: Hypertension No date: Lung nodule No date: Personal history of unspecified urinary disorder 03/07/2015: Rheumatoid arthritis involving multiple sites with positive rheumatoid factor ([facility]) Comment: Dr. Hurley ([facility]) No date: Unspecified hemorrhoids without mention [...] (FLONASE) 50 mcg/actuation nasal spray Use 1 [place] in each nostril once daily. pantoprazole DR (PROTONIX) 40 mg tablet Take 1 tablet by mouth once daily. vit A,C,Y-Emuf-Swbplk (OCUVITE PRESERVISION) 2,148 mcg-113 mg-45 mg-17.4mg tab [...] AM EDT This note was created using [employer]riter. Subjective Haydee Bustamante is a 78 year old female. Patient presents with: Hospital F/U: [facility] ED/Hospital discharge 08/18/23 SUBJECTIVE: Haydee Bustamante is [...] ([facility]) 03/07/2015 Dr. Hurley ([facility]) Unspecified hemorrhoids without mention of complication [...] (FLONASE) 50 mcg/actuation nasal spray Use 1 [place] in each nostril once daily. pantoprazole DR (PROTONIX) 40 mg tablet Take 1 tablet by mouth once daily. vit A,C,P-Eiek-Xetogo (OCUVITE PRESERVISION) 2,148 mcg-113 mg-45 mg-17.4mg tab [...] sleep. Claudine Durán MD documented in this encounterShelby Memorial Hospital08-02-2024 History of Present illness Narrative* Twyla Cuevas APRN.CNP - 09/21/2023 2:36 PM EDT Noted and agree, thank you! * Melissa Means, PAULA - 09/21/2023 2:33 PM EDT patient had inr completed at [facility] patients inr is 2.4 (patients inr range [...] not agree with recommendation documented in this encounterShelby Memorial Hospital07-17-2024 Telephone encounter Note * Telephone Encounter - Thi Zambrano OCCA - 09/05/2023 8:48 AM EDT TC to patient who is informed of providers message and is agreeable to starting spironolactone. CARMEN Viveros [facility]07-17-[facility] Miscellaneous Notes* Telephone Encounter - Thi [...] save her potassium. I sent this to [facility]. * Telephone Encounter - Maritza [...] of breath, Patient had CBC done at [facility] yesterday. Patient does not have letter for [...] leave a message. * Telephone Encounter - wTyla Cuevas APRN.SANTY - 09/04/2023 4:05 PM EDT Lab testing shows kidney function stable, potassium is low. Please see how often she has been taking her lasix and how often she is currently taking her potassium pills. documented in this encounterShelby Memorial Hospital07-17-2024 Telephone encounter Note * Telephone Encounter - Twyla Cuevas APRN.CNP - 09/05/2023 7:18 AM EDT Okay, to help the swelling and the potassium I am going to send in spironolactone for her to start,it is a potassium sparing diuretic, it should help with the swelling but will also help save her potassium. I sent this to [facility]. [facility]07-16-[facility] Telephone encounter Note* Telephone Encounter - [...] of breath, Patient had CBC done at [facility] yesterday. Patient does not have letter for Handicapped Swathi written 08/22/2023, asking for another copy to be mailed to her. Put on nurse's counter for Dr. Durán to sign, addressed envelope ready. Maritza Preston LPN [facility]07-16-2024 Telephone encounter Note* Telephone Encounter - Geni Cintron LPN - 09/04/2023 4:20 PM EDT Attempted to reach patient with no answer and unable to leave a message. [facility]07-16-[facility] Telephone encounter Note* Telephone Encounter - Twyla Cuevas APRN.SANTY - 09/04/2023 4:05 PM EDT Lab testing shows kidney function stable, potassium is low. Please see how often she has been taking her lasix and how often she is currently taking her potassium pills. [facility]07-12-[facility] History of Present illness Narrative* Ilda Miller RN - 08/31/2023 12:15 PM EDT CDM Telephonic Outreach Provider Action/FYI N/A Contacted for: Engagement & SDOH screening for food insecurity and transportation -no needs identified Last questionnaire completed: 03/13/23 My Chart reminder letter sent 04/16/23, 08/07/23 Telephonic outreach: 07/05/23-left VM No response to date to My Chart questionnaire. Of note: Recent [facility] discharge 08/18/23 Contact made with patient: Yes Patient identified by name and date of . Discussed care with patient Outcomes: Patient forgot, reminder given Are you experiencing any new or worsening symptoms you need to talk about today? No Based on cloth shrinking machine operator, the following disposition is advised: No symptoms or symptoms present, not severe. Routed to: No Action Needed PAN Education Provided this Outreach: No Upcoming appointments reviewed: Appointments for Next 60 Days Date Time Provider Location Dept Phone 09/20/2023 10:00 AM ANTICOAG [facility] [phone] 09/28/2023 10:30 AM [facility] [phone] 10/11/2023 1:00 PM JIMBO SWANSON [facility] [phone] 10/18/2023 10:00 AM BIBI ALEGRIA [facility] [phone] Ilda Miller RN August 31, 2023 12:38 PM documented in this encounterShelby Memorial Hospital07-12-2024 Telephone encounter Note * Telephone Encounter [...] Quintanilla LPN August 31, 2023 9:30 AM [facility]07-12-2024 Miscellaneous Notes* Telephone Encounter - Danita [...] 31, 2023 9:30 AM documented in this encounterShelby Memorial Hospital07-11-2024 History of Present illness Narrative* Melissa Means RN - 08/30/2023 3:46 PM EDT pcp agrees with information * Melissa Means RN - 08/30/2023 1:13 PM EDT patient had inr completed at [facility] patients inr is 1.9 (patients inr range [...] for follow up INR. documented in this encounterShelby Memorial Hospital07-11-2024 History of Present illness Narrative* Faviola [...] PATIENT PRESENTS WITH AN IMPLANTABLE OR ATTACHED ELECTRIC ACCOUNTING MACHINE OPERATOR: No RADIOLOGY DEPARTMENT: CT; Exam(s) Completed: Chest PERIPHERAL IV DATA: Not applicable SIGNED BY: RT Maryann(R) August 30, 2023 3:28 PM documented in this encounterShelby Memorial Hospital07-09-2024 History of Present illness Narrative* Geno Hart MD - 08/28/2023 9:00 AM EDT Patient presents with: Histoplasmosis : Disseminated due to immunocompromising meds HPI: 78-year-old woman with rheumatoid arthritis on Biologics, COPD and bronchiectasis, in the past found to have recurrent disseminated histoplasmosis and [facility] physician[facility] such with appropriate management. Went into the hospital in March transferred to [facility] from [place] for what was felt to be massive hemoptysis which did not handle turner to be that bad. She also [...] She at one point went back to [place] for some type of edema that caused open sores on her legs which got treated in the hospital and became better. Currently states no fevers or chills. The prior horrible cough she had at the [facility] after hospitalization is gone. She has no wasting, appetite loss severe shortness of breath, current hemoptysis. She has no problem with her bowels except 2 weeks ago had a rectal bleed ended up seeing a carton stenciler in [facility] and after 3 units of blood did well. She had a 6-day admission and Dr. Orellana carton stenciler did an EGD with duodenal bleeding ulcer [...] (FLONASE) 50 mcg/actuation nasal spray Use 1 [place] in each nostril once daily. [address] (PROTONIX) 40 mg tablet Take 1 tablet by mouth once daily. 90 tablet 3 vit A,C,S-Lyjr-Drwabb (OCUVITE PRESERVISION) 2,148 mcg-113 mg-45 mg-17.4mg tab [...] ([facility]) 03/07/2015 Dr. Hurley ([facility]) Unspecified hemorrhoids without mention of complication [...] SPINE FUSN,POST INTERBODY 2012 Dr. Armando at [facility]. Diskectomy and laminectomy PAST SURGICAL HISTORY OF 03/07/1999 removal facial lesion PAST SURGICAL HISTORY OF 08/17/2014 excision soft tissue mass left index finger TONSILLECTOMY PRIMARY/SECONDARY <AGE 12 TRANSCATH RETRIEVAL,PERCUT 12/28/2006 ACTIVE PROBLEM LIST Esophageal Reflux Meralgia Paresthetica Other Voice and Resonance Disorders Arthropathy, Unspecified, Site Unspecified Elevated Liver Enzymes Penitentiary Current Use of Anticoagulant Therapy Hnp (Herniated [...] 4 months (around 12/29/2023). documented in this encounterShelby Memorial Hospital07-08-2024 Telephone encounter Note * Telephone Encounter - Ashley Rahman MA - 08/27/2023 9:59 AM EDT Please call Pt to schedule Limited Echo prior to next OV with Bibi Alegria. [facility]07-08-2024 Miscellaneous Notes* Telephone Encounter - Ashley Rahman MA - 08/27/2023 9:59 AM EDT Please call Pt to schedule Limited Echo prior to next OV with Bibi Alegria. documented in this encounterShelby Memorial Hospital07-08-2024 NoteHNO ID: [id number] Author: WILLIAM MESSINA, DO Service: ? Author Type: Physician Type: Progress Notes Filed: 08/27/2023 14:47 Note Text: [facility] SECTION OF REGIONAL CARDIOLOGY [facility] OUTPATIENT VISIT DATE August 27, 2023 PRIMARY CARE PHYSICIAN: Claudine Durán [address] [place] [address] HISTORY OF PRESENT ILLNESS: Ms. Bustamante is [...] ([facility]) 03/07/2015 Dr. Hurley ([facility]) Unspecified hemorrhoids without mention of complication Hemorrhoids PAST SURGICAL HISTORY Procedure Laterality Date COLONOSCOPY FLX DX W/COLLJ SPEC WHEN PFRMD 10/2003 Colonoscopy COLONOSCOPY FLX DX W/COLLJ SPEC WHEN PFRMD 05/18/2014 Colonoscopy COLONOSCOPY (more content not included)...[id number] History of Present illness Narrative* William Messina, - 08/27/2023 8:28 AM EDT Images from the original note were not included. [facility] SECTION OF REGIONAL CARDIOLOGY [facility] OUTPATIENT VISIT DATE August 27, 2023 PRIMARY CARE PHYSICIAN: Claudine Durán [address] [place] [address] HISTORY OF PRESENT ILLNESS: Ms. Bustamante is [...] ([facility]) 03/07/2015 Dr. Hurley ([facility]) Unspecified hemorrhoids without mention of complication [...] SPINE FUSN,POST INTERBODY 2012 Dr. Armando at [facility]. Diskectomy and laminectomy PAST SURGICAL HISTORY OF [...] (FLONASE) 50 mcg/actuation nasal spray Use 1 [place] in each nostril once daily. pantoprazole DR (PROTONIX) 40 mg tablet Take 1 tablet by mouth once daily. vit A,C,U-Ixhu-Shmtgy (OCUVITE PRESERVISION) 2,148 mcg-113 mg-45 mg-17.4mg tab [...] 7 days. William Messina DO, FACC, FACOI Cement Mason Apprentice, [facility] Ambulatory Cardiology Cement Mason Apprentice, [facility] Cardiac Rehabilitation Cement Mason Apprentice, [facility] Cardiac Rehabilitation Cement Mason Apprentice, [facility] Congestive Heart Failure Clinic Cement Mason Apprentice, [facility] Ambulatory Cardiology Clinical Heater Operator Profressor of Medicine, [facility] of Medicine - [facility] Staff Flyer Maker, Les Pierce Department of Cardiovascular Medicine/Heart and Vascular Marine, [facility] Please note: This note has been produced using speech recognition software and may contain errors related to that system including madelyn, punctuation, spelling, words, gender and phrases that may be inappropriate. documented in this encounterShelby Memorial Hospital07-05-2024 Telephone encounter Note * Telephone Encounter [...] Scheduled pt with Dr. Messina next week. [facility]07-05-2024 Miscellaneous Notes* Telephone Encounter - Gracy [...] since d/c from hospital. documented in this encounterShelby Memorial Hospital07-05-2024 Telephone encounter Note * Telephone Encounter - Shirley Mccloud - 08/24/2023 3:53 PM EDT Pt called back and would like to speak to the nurses about her issues. [facility]07-05-2024 Telephone encounter Note* Telephone Encounter - [...] how pt wasdoing since d/c from hospital. [facility]07-03-2024 History of Present illness Narrative* Melissa Means RN - 08/22/2023 4:20 PM EDT pcp agrees with information * Melissa Means RN - 08/22/2023 10:02 AM EDT patient had inr completed at [facility] patients inr is 1.1 (patients inr range [...] not agree with recommendation documented in this encounterShelby Memorial Hospital07-03-2024 Instructions* Patient Instructions* Claudine Durán MD [...] 1 to 2 weeks. documented in this encounterShelby Memorial Hospital06-20-2024 History of Present illness Narrative* Jimbo Swanson APRN.CNS - 08/09/2023 11:42 AM EDT Continue with current Coumadin dose unchanged and check INR in 2 weeks * Melissa Means RN - 08/09/2023 10:19 AM EDT patient had inr completed at [facility] patients inr is 2.1 (patients inr range [...] reading since dose change documented in this encounterShelby Memorial Hospital06-19-2024 History of Present illness Narrative* Twyla Cuevas APRN.COAT OPERATOR INSULATOR - 08/08/2023 2:37 PM EDT SUBJECTIVE Haydee [...] 4 hours as needed. Mucus Clearing Device (WikiBrainsAKE VIBRATORY PEP) renetta Provide 1 device warfarin (COUMADIN) 5 mg tablet take 1 AND 1/2 tablets by mouth once daily ON SUNDAY, SUNDAY, SUNDAY, SUNDAY AND SUNDAY and 1 tablet by mouth once daily ON SUNDAY AND SUNDAY FOLIC ACID ORAL Take by mouth. fluticasone (FLONASE) 50 mcg/actuation nasal spray Use 1 [place] in each nostril once daily. vit A,C,B-Potf-Meuysi (OCUVITE PRESERVISION) 2,148 mcg-113 mg-45 mg-17.4mg tab [...] Skin (Hcc) - 07/11/2022 Copd Without Exacerbation ([facility]) - 08/28/2019 Comment: Moderate obstruction 03/2019 and 08/2019 PFTs. Bronchiectasis Without Complication ([facility]) - 04/26/2019 Comment: Continue present management.PFTs as [...] Comment: Added automatically from request for surgery [id number] Ddd (Degenerative Disc Disease), Lumbar - 07/30/2017 Spondylolisthesis of Lumbar Region - 07/30/2017 History of Recurrent Deep Vein Thrombosis (Dvt) - 10/29/2016 Pain in Right Hip - 05/05/2016 Low Back Pain With Right-Sided Sciatica - 05/05/2016 Essential Hypertension - 03/07/2015 Rheumatoid Arthritis (Hcc) - 03/07/2015 Comment: Dr. Hurley ([facility]) Ganglion Cyst - 08/17/2014 Atrophic Vaginitis - 03/06/2013 Hnp (Herniated Nucleus Pulposus), Lumbar - 03/20/2011 Elevated Liver Enzymes - 04/01/2009 Penitentiary Current Use of Anticoagulant Therapy - 04/01/2009 [...] appointment.. Twyla Cuevas APRN-SANTY documented in this encounterShelby Memorial Hospital06-18-2024 Telephone encounter Note * Telephone Encounter [...] CARMEN Viveros August 07, 2023 8:47 AM [facility]06-18-2024 Miscellaneous Notes* Telephone Encounter - Thi [...] 07, 2023 8:47 AM documented in this encounterShelby Memorial Hospital06-11-2024 Telephone encounter Note * Telephone Encounter [...] LPN July 31, 2023 11:34 AM ] [facility]06-11-2024 Miscellaneous Notes* Telephone Encounter - Lynne [...] 2023 11:34 AM ] documented in this encounterShelby Memorial Hospital06-10-2024 Telephone encounter Note * Telephone Encounter [...] Patel MA July 30, 2023 9:25 AM [facility]06-10-2024 Miscellaneous Notes* Telephone Encounter - Danielle [...] 30, 2023 9:25 AM documented in this encounterShelby Memorial Hospital06-06-2024 History of Present illness Narrative* Lauren Bowens APRN.CNP - 07/26/2023 3:21 PM EDT Agree with below recommendations. Lauren Bowens APRN.CNP * Melissa Means RN - 07/26/2023 11:06 AM EDT patient had inr completed at [facility] patients inr is 1.6 (patients inr range [...] not agree with recommendation documented in this encounterShelby Memorial Hospital06-03-2024 Telephone encounter Note * Telephone Encounter [...] in August and will discuss with him. [facility]06-03-2024 Miscellaneous Notes* Telephone Encounter - Yesenia [...] advise, Lulu Quigley RN documented in this encounterShelby Memorial Hospital06-01-2024 Telephone encounter Note * Telephone Encounter [...] a day. Authorizing Provider: CLAUDINE DURÁN MD [facility]05-31-2024 Telephone encounter Note* Telephone Encounter - [...] Please review and advise, Lulu Quigley RN [facility]05-29-2024 Telephone encounter Note* Telephone Encounter - Claudine Durán MD - 07/18/2023 1:17 PM EDT The following approved medication requests have been transmitted electronically. Requested Prescriptions Pending Prescriptions Disp Refills itraconazole (SPORANOX) 10 mg/mL solution 1200 mL 0 Sig: Take 20 mL by mouth two times a day. Claudine Durán MD [facility]05-29-2024 Miscellaneous Notes* Telephone Encounter - Claudine [...] you. Danielle Patel MA. documented in this encounterShelby Memorial Hospital05-28-2024 Telephone encounter Note * Telephone Encounter [...] Please advise. Thank you. Danielle Patel MA. [facility]05-24-2024 Telephone encounter Note* Telephone Encounter - Jimbo Swanson APRN.CNS - 07/13/2023 12:00 PM EDT OK please schedule with ortho [facility]05-24-2024 Miscellaneous Notes* Telephone Encounter - Jimbo Swanson APRN.CNS - 07/13/2023 12:00 PM EDT OK please schedule with ortho * Telephone Encounter - Diana Evans LPN - 07/13/2023 9:17 AM EDT Patient aware of results and provider recommended follow up. Patient would like to see an orthopedic Provider here in [place] at the [facility]. Aware may need to be scheduled [...] her knee. Would recommend seeing orthopedist or arborist representative for this at her earliest convenience, check to see if prednisone is helping. Left message. documented in this encounterS[facility]05-[facility] Telephone encounter Note * Telephone Encounter - Diana Evans LPN - 07/13/2023 9:17 AM EDT Patient aware of results and provider recommended follow up. Patient would like to see an orthopedic Provider here in [place] at the [facility]. Aware may need to be scheduled [...] pain and less edema. Diana Evans LPN [facility]05-23-2024 Telephone encounter Note* Telephone Encounter - Yesenia Weinstein LPN - 07/12/2023 3:44 PM EDT No answer. Left message for patient to call office and ask to speak to a nurse regarding Ultrasoundresults [facility]05-[facility] Telephone encounter Note* Telephone Encounter - Jimbo Swanson APRN.CNS - 07/12/2023 3:14 PM EDT No thrombophlebitis or DVT. Does have fluid collection at her knee. Would recommend seeing orthopedist or arborist representative for this at her earliest convenience, check to see if prednisone is helping. Left message. [facility]05-23-2024 History of Present illness Narrative* Jimbo Swanson APRN.CNS - 07/12/2023 3:08 PM EDT Continue Coumadin dose unchanged and check INR in 2 weeks * Melissa Means RN - 07/12/2023 10:12 AM EDT patient had inr completed at [facility] patients inr is 1.8 (patients inr [...] reading since dose change documented in this encounterShelby [facility]05-21-[facility] History of Present illness Narrative* Jimbo Swanson APRN.AMUSEMENT RIDE OPERATOR - 07/10/2023 1:53 PM EDT SUBJECTIVE: RSV [...] bicuspid valve, lung nodule bronchiectasis and COPD. Dairy Associate: Florence Collins MD, for follow-up of lung nodules bronchiectasis. Noted are a likely etiology for underlying bronchiectasis. Flyer Maker: William Messina BAV, aortic stenosis. 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 Reports currently not taking Humira or methotrexate due to histoplasmosis. Infectious disease Dr. Hart, August appointment. She was seen by his PCP in May 2023 for follow[facility]up appointment [facility]. [...] fluticasone (FLONASE) 50 mcg/actuation nasal spray^Use 1 [place] in each nostril once daily.^Disp: 3 Each^Rfl: 3 vit A,C,J-Ytoz-Lwtbsm (OCUVITE PRESERVISION) 2,148 mcg-113 mg-45 mg-17.4mg tab^Take [...] ([facility]) 03/07/2015 Dr. Hurley ([facility]) Unspecified hemorrhoids without mention of complication [...] Level: 4 - Moderate documented in this encounterShelby [facility] Hospital05-16-[facility]24 History of Present illness Narrative* Melissa Means RN - 07/05/2023 4:27 PM EDT PATIENT NOTIFIED OF INFORMATION * Jimbo Swanson APRN.CNS - 07/05/2023 2:21 PM EDT Agree hold Coumadin today and then take 5 mg daily starting tomorrow and check INR in 1 week * Melissa Means RN - 07/05/2023 1:48 PM EDT patient had inr completed at [facility] patients inr is 3.5 (patients inr range is 1.7-2.2) patient is currently taking 5mg Mon,Wed and 7.5mg all other days patients last dose change unknown as this is the dose she was told at [facility] discharge patient has had no changes in medication and no missed doses and no change in diet recommend: patient hold dose today and then go to 5mg daily and recheck in 1 week patient has been scheduled for a 1 week follow up inr on 07/12/23 please review and advise on recommendation documented in this encounterShelby [facility] Hospital05-16-2024 History of Present illness Narrative* Ilda Miller RN - 07/05/2023 4:00 PM EDT [facility] Telephonic Outreach Provider Action/FYI N/A Contacted for: Engagement Last questionnaire completed: 03/13/23 My Chart reminder letter sent 04/16/23 No response to date to My Chart questionnaire. Contact made with patient: No, left message. Ilda Miller RN July 05, 2023 4:04 PM documented in this encounterShelby [facility] Hospital05-13-2024 Telephone encounter Note * Telephone Encounter [...] 10/11/2023 Please advise. Thank you. CARMEN Viveros. [facility]05-13-2024 Miscellaneous Notes* Telephone Encounter - Thi [...] Thank you. CARMEN Viveros. documented in this encounterShelby [facility] Hospital05-13-2024 Telephone encounter Note * Telephone Encounter [...] Please advise. Thank you. Danielle Patel MA. [facility]05-13-2024 Miscellaneous Notes* Telephone Encounter - Danielle [...] you. Danielle Patel MA. documented in this encounterShelby [facility] Hospital04-23-2024 Telephone encounter Note * Telephone Encounter - Brittany Cedillo LPN - 06/12/2023 2:59 PM EDT Pt has not reviewed the my chart message. Message left to her home number to either review the my chart message or call back to spoke to a nurse. [facility]04-23-2024 Miscellaneous Notes* Telephone Encounter - Brittany [...] Thank you. Dionne Nunez. documented in this encounterShelby [facility] Hospital04-19-2024 Telephone encounter Note * Telephone Encounter - Brittany Cedillo LPN - 06/08/2023 10:05 AM EDT Pt notified via my chart. [facility]04-19-2024 Telephone encounter Note* Telephone Encounter - [...] two times a day. Claudine Durán MD [facility]04-18-2024 Telephone encounter Note* Telephone Encounter - [...] advise. Thank you. Maritza Preston LPN. Yes [facility]04-18-2024 Telephone encounter Note* Telephone Encounter - [...] found Please advise. Thank you. Dionne Nunez. [facility]04-16-2024 Instructions* Patient Instructions* Claudine Durán MD - 06/05/2023 3:50 PM EDT Consider seeing Dr. Friend's GI partner for follow up on elevated liver enzymes. documented in this encounterShelby [facility] Hospital04-16-2024 History of Present illness Narrative* Claudine Durán MD - 06/05/2023 3:28 PM EDT This note was created using Fosubo. Subjective Haydee Bustamante is a 78 year old female. Patient presents with: Discharge Skilled Rehab: Discharged from [facility] SUBJECTIVE: Haydee Bustamante is a 78 year old year old lady here today for follow up appointment for review of medical conditions after in [facility] after being in TCU after hospitalization. Did well with PT/OT ST at TCU at [facility] noted for swallowing--no problems with swallowing now. [...] ([facility]) 03/07/2015 Dr. Hurley ([facility]) Unspecified hemorrhoids without mention of complication [...] (FLONASE) 50 mcg/actuation nasal spray Use 1 [place] in each nostril once daily. albuterol HFA (PROAIR HFA) 90 mcg/actuation inhaler Inhale 2 Puffs as instructed every 4 hours as needed. vit A,C,G-Whnk-Ajsgeh (OCUVITE PRESERVISION) 2,148 mcg-113 mg-45 mg-17.4mg tab [...] the date of the service which included aqum-mc-thvs patient care, completing clinical documentation, obtaining and/or reviewing separately obtained history, performing a medically appropriate examination, counseling and educating the patient/family/caregiver, ordering medications, tests, or procedures, independently interpreting results (not separately reported), and communicating results to the patient/family/caregiver. Claudine Durán MD documented in this encounterShelby [facility] Hospital03-11-2024 Miscellaneous Notes* Telephone Encounter - Brittany Cedillo LPN - 04/30/2023 11:09 AM EDT Rec'd rec'd from [facility] pt to be d/c from [facility] to [facility] private pay for therapy documented in this encounterShelby [facility] Hospital03-08-2024 Discharge summary Author Edinson Irvin [facility] April 27, 2023 1:24pm Note Date/Time April 27, 2023 1:24 pm [facility] Medical Records Department [address] [place] [address] Transfer to [facility] MR#: [id number] Acct: [id number] Name: HAYDEE BUSTAMANTE Rep #:[id number] : 1945 77 From: Edinson Irvin MD PCP: Dr. Claudine Durán MD Status:AD M IN Certification of patient admission REQUIRED AT TIME OF ADMISSION. I CERTIFY THAT POST-HOSPITAL ECF SERVICES ARE REQUIRED TO BE GIVEN ON AN IN-PATIENT BASIS BECAUSE OF THE ABOVE NAMED PATIENT'S NEED FOR FPC CARE ON A CONTINUING BASIS FOR THE CONDITION(S) FOR WHICH HE/SHE WAS RECEIVINGIN-PATIENT HOSPITAL SERVICES PRIOR TO HIS/HER TRANSFER TO THE [facility]. 04/27/23 1324<Electronically signed by Edinson Irvin MD> [...] Additional Instructions / Restrictions: Discharge 04/30/2023 to [facility], private pay, part B therapies. Discharge Orders/Prescriptions [...] Qty: 0 0RF fluticasone propionate 50 mcg/actuation [place],Suspension 1 spray NASAL DAILY Qty: 0 0RF [...] applicable): CC: Dr. Claudine Durán MD ~ [facility] Work Phone: 1(750) 718-340503-08-2024 Discharge summary Author Edinson [facility] April 27, 2023 1:23pm Note Date/Time April 27, 2023 1:17 pm [facility] Medical Records Department [address] [place] [address] [place] [address] Discharge Summary 04/27/23 1316 MR#: [id number] Acct: [id number] Name: HAYDEE BUSTAMANTE Rep #:[id number] : 1945 77 From: Edinson Irvin MD PCP: Dr. Claudine Durán MD Status:[facility] IN Location: [place] [address] Providers Date of Admission: 04/05/23 Primary Care Physician: Dr. Claudine Durán MD Consultations 04/10/23 10:44 Consult: Onc/Wound/bleach boiler filler Routine Comment: Reason for Consult:: bilateral lowers [...] 1 tab PO DAILY supplement 03/19/23 vitamins A,C,U-ycti-cmwxxp 2,148 mcg-113 mg-45 mg-17.4 mg tablet (PreserVision [...] right lower extremity. Discharge 04/30/2023 to [facility], intermediate, private pay, part B therapies. Physical [...] Uncontrolled pain Additional Instructions: Discharge 04/30/2023 to [facility], [facility], part B therapies. Meaningful Use Info Meaningful Use Diagnoses (Choose all that apply): None applicable Discharge Plan Admission Admit Date/Time: 04/05/23 13:33 Primary Reason for Your Visit: Debility. Attending Provider: Edinson Irvin Chi Primary Care Provider: Claudine Durán Instructions Additional Instructions / Restrictions: Discharge 04/30/2023 to [facility], private pay, part B therapies. Discharge Orders/Prescriptions [...] Qty: 0 0RF fluticasone propionate 50 mcg/actuation [place],Suspension 1 spray NASAL DAILY Qty: 0 0RF [...] Durán MD; Dr. Edinson Irvin MD~ Signed [facility] Work Phone: 1(307) 949-840402-21-2024 History and physical note Author Edinson [facility] April 11, 2023 11:37am Note Date/Time April 05, 2023 8:06pm [facility] Medical Records Department [address] [place] [address] History & Physical Exam 04/05/231955 MR#: [id number] Acct: [id number] Name: HAYDEE BUSTAMANTE Rep #:[id number] : 1945 77 From: Edinson Irvin MD PCP: Dr. Claudine Durán MD Status:AD M IN Location: [place] [address]-1 HPI - General General Date of Admission: 04/05/23 Date of Service: 04/05/23 Chief Complaint: Here for rehabilitation. HPI Narrative 03/31/2023 HAYDEE BUSTAMANTE, is a 77 Female who presents to [facility] ED with edema. FTT, bilateral lower extremity edema, right lower extremity redness. Unable to care for self at home, fell, could not get up. On floor for hours. Worsening right leg pain. WBC 19.4, Hemoglobin 8.3, INR 1.3, K 3.2, BNP okay, CK okay. Chest X-ray negative, X-ray right tibia/fibula negative. Clindamycin IV for right lower extremity cellulitis. 03/31/2023 Admit to [facility]. Levaquin, Doppler right lower extremity for cellulitis [...] Q24H 03/19/23 [History Last Taken Unknown] vitamins A,C,B-obln-pcgbnc 2,148 mcg-113 mg-45 mg-17.4 mg tablet (PreserVision [...] MD; Dr. Edinson Irvin MD ~* Signed [facility] Work Phone: 1(598) 465-593202-19-2024 Procedure [facility] 04-06-2023 Progress note Author Amparo Marina [facility] April 06, 2023 3:02pm Note Date/Time April 06, 2023 2:39pm [facility] Medical Records Department [address] [place] [address] [place] [address] Progress Note - Pharmacy 04/06/23 1438 MR#: [id number] Acct: [id number] Name: HAYDEE BUSTAMANTE Rep #:[id number] : 1945 77 From: Amparo Marina PCP: Dr. Claudine Durán MD Status:AD M IN Location: [place] [address] Documented by User: Amparo Marina 04/06/23 15:02 [...] 04/06/23 10:00 04/06/23 08:50 Fluticasone 0.05% 1 [place] Nasal.Sry NASAL 1 spray DAILY [facility] Administration Gabapentin 300 mg 04/05/23 22:00 04/06/23 08:52 Gabapentin 300 Mg Capsule PO 300 mg Q12 [facility] Administration Itraconazole 200 mg 04/05/23 17:00 04/06/23 08:48 Itraconazole 100 Mg Capsule PO 200 mg BIDCM [facility] Administration Magnesium Citrate 300 ml 04/05/23 20:14 Magnesium Citrate 300 Ml PO DAILY PRN Constipation Multivitamins 1 tablet 04/06/23 08:00 04/06/23 08:49 Multivitamins,Therapeutic Tablet PO 1 tablet DAILYCM [facility] Administration Multivitamins/Minerals 2 cap 04/05/23 17:00 04/06/23 08:48 Multivitamin (Healthy Eyes) Capsule PO 2 cap BIDCM [facility] Administration Oxycodone HCl 5 mg 04/05/23 14:09 Oxycodone 5 Mg Tablet PO Q4H PRN PRN Pain Score 4-10 Pantoprazole Sodium 40 mg 04/05/23 22:00 04/06/23 08:49 Pantoprazole Sodium 40 Mg Tablet PO 40 mg BID [facility] Administration Potassium Chloride 20 meq 04/07/23 08:00 Potassium Chloride Oral Tablet 20 Meq PO DAILYCM [facility] Senna/Docusate Sodium 1 tablet 04/05/23 22:00 04/06/23 08:49 Senna/Docusate Sodium 1 Tablet PO 1 tablet BID [facility] Administration Tuberculin PPD 0.1 ml 04/13/23 [...] by Edinson Irvin MD> CC: ~ Signed [facility] Work Phone: 1(130) 460-793102-15-2024 Consult note Author Alcides Abel [facility] April 05, 2023 10:22am Note Date/Time April 04, 2023 4:12pm [facility] [address] [place] [address] Consultation - Oncology IP 04/04/23 1610 MR#: [id number] Acct: [id number] Name: HAYDEE BUSTAMANTE Rep #:[id number] : 1945 77 From: Alcides tavares MD PCP: Dr. Claudine Durán MD Status:AD M IN Location: [place] [address] Assessment & Plan Assessment/Plan (1) Thrombocytopenia: Status: Acute Code(s): D69.6 - Thrombocytopenia, unspecified Plan: Acute moderately severe onset is in March 2023 no active bleeding and no evidence for recent thrombosis no recent use of heparin. She has a remote history of venous thromboembolic disease and was on Coumadin until recent hospitalization at [facility] in early March 2023. Has [...] prophylaxis.. 4. Patient's is an established at [facility] and therefore I advised continued follow-up there. Impression and plan discussed with the patient and her friend. Impression and plan discussed with hospitalist. Alcides Abel MD Divisional Human Resources Director, [facility] Divisions of Medical Oncology & Hematology Department of Internal Medicine [place] [address] This note was generated using a voice [...] an acute thrombocytopenia (see lab section for termite control representative platelet counts) with no active bleeding or thrombosis. The patient has multiple chronic medical problems and multiple hospitalizations between [facility] and [facility] and is presenting with failure to [...] early March 2023 she was seen at [facility] and transferred to [facility] with suspected bowel perforation and was treated conservatively with antimicrobials. On the current admission she was receiving Cipro and Flagyl in addition to itraconazole s that was started around February 2023. In her last admission to [facility] in March 2023 Coumadin was held, because not clear and patient as far as she can tell did not receive any heparin injections . Advanced Directives Power of [employer]: Yes Living Will: Yes [facility] [...] Q24H 03/19/23 [History Last Taken Unknown] vitamins A,C,B-udjq-hapuoj 2,148 mcg-113 mg-45 mg-17.4 mg tablet (PreserVision [...] (Auto) 76.5 H, Lymph % (Auto) 9.4L, Wilkes % (Auto) 8.3, Eos % (Auto) 4.9, [...] MD; Dr. Jorgito Agarwal DO ~ Signed [facility] Work Phone: 1(699) 597-373402-14-2024 Progress note Author Jasmyn Chan [facility] April 04, 2023 6:11pm Note Date/Time April 04, 2023 6:11pm [facility] Medical Records Department [address] [place] [address] Progress Note - Hospitalist 04/04/23 1807 MR#: [id number] Acct: [id number] Name: HAYDEE BUSTAMANTE Rep #:[id number] : 1945 77 From: Jasmyn Chan DO PCP: Dr. Claudine Durán MD Status:AD M IN Location: [place] [address] Reason for Visit Reason for Visit: Diagnoses [...] (Auto) 76.5 H, Lymph % (Auto) 9.4L, Wilkes % (Auto) 8.3, Eos % (Auto) 4.9, [...] 73.8 H, Lymph % (Auto) 11.4 L, Wilkes % (Auto) 9.8, Eos % (Auto) 4.2, [...] 25 minutes Charges/Coding Visit Charges Inpatient E&M: 58580 Subs Hosp L1 04/04/23 9851 <Electronically signed by Jasmyn Tereletsky DO> Cosigner Signature (if applicable): CC: ~ Signed [facility] Work Phone: 1(823) 334-736902-13-2024 Progress note Author Mathew Orellana [facility] April 03, 2023 5:53pm Note Date/Time April 03, 2023 5:53pm [facility] Medical Records Department [address] [place] [address] Progress Note - GI 04/03/23 1750 MR#: [id number] Acct: [id number] Name: HAYDEE BUSTAMANTE Rep #:[id number] : 1945 77 From: Mathew Orellana DO PCP: Dr. Claudine Durán MD Status:AD M IN Location: [place] [address] Subjective Subjective Patient is doing well without [...] Protocol: Document 04/01/23 12:03 (Rec: 04/01/23 12:03 [id number]) Nutrition Malnutrition Evidence of Malnutrition Exists Yes [...] (Auto) 82.5 H, Lymph % (Auto) 6.5L, Wilkes % (Auto) 7.5, Eos % (Auto) 2.7, [...] PE),Recent diagnosis Histoplasmosis, recent 03/21/33 evaluation at [facility] with transfer to [facility] secondary to concerns for complex bowel [...] needs any acid suppression she can get radiation protection specialist fate or H2 receptor pietro. Charges/Coding Visit Charges Inpatient E&M: 97230 Subs Hosp 04/03/23 1752 <Electronically signed by Mathew Friend > Cosigner Signature (if applicable): CC: ~ Signed [facility] Work Phone: 1(252) 390-151302-13-2024 Progress note Author Jasmyn Chan [facility] April 03, 2023 5:36pm Note Date/Time April 03, 2023 5:36pm [facility] Medical Records Department [address] [place] [address] Progress Note - Hospitalist 04/03/23 1730 MR#: [id number] Acct: [id number] Name: HAYDEE BUSTAMANTE Rep #:[id number] : 1945 77 From: Jasmyn Chan DO PCP: Dr. Claudine Durán MD Status:AD M IN Location: [place] [address] Reason for Visit Reason for Visit: Diagnoses [...] Protocol: Document 04/01/23 12:03 (Rec: 04/01/23 12:03 [id number]) Nutrition Malnutrition Evidence of Malnutrition Exists Yes [...] (Auto) 82.5 H, Lymph % (Auto) 6.5L, Wilkes % (Auto) 7.5, Eos % (Auto) 2.7, [...] 25 minutes Charges/Coding Visit Charges Inpatient E&M: [address] [facility] Hosp L1 04/03/23 7776 <Electronically signed by Jasmyn Chan DO> Cosigner Signature (if applicable): CC: ~ Signed [facility] Work Phone: 1(206) 724-565802-12-2024 Progress note Author Jasmyn hCan [facility] April 02, 2023 8:07pm Note Date/Time April 02, 2023 8:07pm [facility] Medical Records Department [address] [place] [address] Progress Note - Hospitalist 04/02/232000 MR#: [id number] Acct: [id number] Name: HAYDEE BUSTAMANTE DIONTE Rep #:[id number] : 1945 77 From: Jasmyn Chan DO PCP: Dr. Claudine Durán MD Status:AD M IN Location: [place] [address] Reason for Visit Reason for Visit: Diagnoses [...] Protocol: Document 04/01/23 12:03 (Rec: 04/01/23 12:03 [id number]) Nutrition Malnutrition Evidence of Malnutrition Exists Yes [...] (Auto) 86.6 H, Lymph % (Auto) 6.4L, Wilkes % (Auto) 5.4, Eos % (Auto) 0.6, [...] acute debility-patient may need placement in a nursing home facility for short-term rehab services. #6 histoplasmosis-patient is currently on itraconazole Total clinical time spent by myself addressing the patient's medical issues, reviewing all of her data, and collaborating with patient's care team: 25 minutes Charges/Coding Visit Charges Inpatient E&M: 40728 Subs Hosp L1 04/02/232006 <Electronically signed by Jasmyn Chan DO> Cosigner Signature (if applicable): CC: ~ Signed [facility] Work Phone: 1(613) 137-918002-12-2024 Miscellaneous Notes* Telephone Encounter - Claudine Durán MD - 04/02/2023 7:52 PM EST Noted regarding fall. * Telephone Encounter - Doretha Miller RN - 04/02/2023 9:44 AM EST Friend answered pt's phone, and after informed this is a nurse in pcp office, friend reported pt was admitted into [facility] PCU after a fall on Sat. Friend does not think there was an injury from fall. Friend reports patient was in [facility] for 1 week, and has been in and out of ER several times since discharge. Advised we would f/u with pt once discharged from [facility]. * Telephone Encounter - Claudine Durán MD - 04/01/2023 4:51 PM EST Noted Patient had recent labs done during admission (was at [facility] and discharged 03/25) Noted alk phos [...] 02/27/2023 1:48 PM EST Faxed received from [facility] Melissa Dorsey [facility] stating that the liver enzymes are worse. Please review copy of labs and advise. documented in this encounterShelby [facility] Hospital02-12-2024 Consult note Author Mathew Friend [facility] April 02, 2023 5:06pm Note Date/Time April 02, 2023 5:00pm [facility] Medical Records Department [address] [place] [address] Consultation - GI 04/01/23 1658 MR#: [id number] Acct: [id number] Name: HAYDEE BUSTAMANTE Rep #:[id number] : 1945 77 From: Mathew Orellana DO PCP: Dr. Claudine Durán MD Status:AD M IN Location: [place] [id number]- HPI Consult Data Date of Consult: 04/01/23 HPI Narrative Reason for Consultation: Anemia HPI Narrative: HAYDEE BUSTAMANTE, is a 77-year-old female history of COPD, Severe . GERD. DVT and PEon Coumadin, histoplasmosis of the lung, RA who presented to [facility] ED 03/31/2023 with bilateral lower extremity edema. She was seen here 03/28/2023 with lower extremity edema. She was initially seen here 03/26/2023 for shortness of breath and inability to care for herself at home after a recent hospital stay at [facility] from which she was discharged on [...] Q24H 03/19/23 [History Last Taken Unknown] vitamins A,C,A-mlcl-fydhfm 2,148 mcg-113 mg-45 mg-17.4 mg tablet (PreserVision [...] Document 04/01/23 12:03 AG (Rec: 04/01/23 12:03 [id number]) Nutrition Malnutrition Evidence of Malnutrition Exists Yes [...] (Auto) 86.6 H, Lymph % (Auto) 6.4L, Wilkes % (Auto) 5.4, Eos % (Auto) 0.6, [...] PE),Recent diagnosis Histoplasmosis, recent 03/21/33 evaluation at [facility] with transfer to [facility] secondary to concerns for complex bowel [...] of 3 Charges/Coding Visit Charges Inpatient E&M: 68245 Init Hosp L3 04/02/23 1706 <Electronically signed by Mathew Friend DO> Cosigner Signature (if applicable): CC: Dr. Alisa Mathew MD; Dr. Claudine Durán MD; Dr. Laine Veras MD~ Signed [facility] Work Phone: 1(986) 536-236002-12-2024 Procedure [facility] 04-02-2023 Procedure [facility]02-11-2024 Miscellaneous Notes* Telephone Encounter - Claudine Durán MD - 04/01/2023 4:36 PM EST See MyChart reply documented in this [facility] Progress note Author [facility] April 01, 2023 12:08pm Note Date/Time April 01, 2023 6:46am [facility] Medical Records Department [address] [place] [address] Progress Note - Hospitalist 04/01/23 0642 MR#: [id number] Acct: [id number] Name: HAYDEE BUSTAMANTE Rep #:[id number] : 1945 77 From: Alisa Mathew MD PCP: Dr. Claudine Durán MD Status:AD M IN Location: [place] [address] Reason for Visit Reason for Visit: Diagnoses [...] 90.8 H, Lymph % (Auto) 3.0 L, Wilkes % (Auto) 5.0, Eos % (Auto) 0.1, [...] 88.5 H, Lymph % (Auto) 4.7 L, Wilkes % (Auto) 5.6, Eos % (Auto) 0.2, [...] 23:54 EST Reading Location ID and State: [employer] / [place] Tel , Service support , Physical Exam [...] PE),Recent diagnosis Histoplasmosis, recent 03/21/33 evaluation at [facility] with transfer to [facility] secondary to concerns for complex bowel [...] therapy with planned outpatient work-up, discharged from [facility] 03/25/23 with decline upon return to home, inability to safely care for self prompting presentation to the [facility] ED on 03/26/23 for SNF placement needs but improved and declined SNF placement again who now re-presents to the [facility] ED on 03/31/23 with history of worsened [...] follow-up as previously arranged per Surgery team [facility]. #11. Rheumatoid arthritis: Patient outpatient on Humira, methotrexate and leucovorin however this has been continued to be held secondary to a recent hospitalization in [facility] with disseminated histoplasmosis and concern for bowel perforation/colitis, resume once allowed per infectious disease. #12. Valvular heart disease with aortic stenosis with recent diagnosis moderatepericardial effusion: Recent evaluation in [facility], no intervention but close observation [...] Code status. Charges/Coding Visit Charges Inpatient E&M: 79614 Subs Hosp L3 04/01/23 1208 <Electronically signed by Alisa Mathew MD> Cosigner Signature (if applicable): CC: ~ Signed [facility] Work Phone: 1(558) 831-165202-10-2024 History and physical note Author Laine Veras [facility] March 31, 2023 8:59pm Note Date/Time March 31, 2023 8:20pm [facility] Medical Records Department [address] [place] [address] H&P Exam - Hospitalist 03/31/232011 MR#: [id number] Acct: [id number] Name: HAYDEE BUSTAMANTE Rep #:[id number] : 1945 77 From: Laine Veras MD PCP: Dr. Claudine Durán MD Status:AD M IN Location: [facility] [id number] [facility] - General General Date of Admission: 03/31/23 Date of Service: 03/31/23 Chief Complaint: BLE edema and weeping HPI Narrative HAYDEE BUSTAMANTE, is a 77-year-old female history of COPD, Severe . GERD. DVT and PEon Coumadin, histoplasmosis of the lung, RA who presented to [facility] ED 03/31/2023 with bilateral lower extremity edema. She was seen here 03/28/2023 with lower extremity edema. She was initially seen here 03/26/2023 for shortness of breath and inability to care for herself at home after a recent hospital stay at [facility] from which she was discharged on [...] (Updated 03/31/23 @ 20:[address] Laine Vears MD) Colitis COPD (chronic obstructive pulmonary disease) [...] Q24H 03/19/23 [History Last Taken Unknown] vitamins A,C,N-srmh-sapznb 2,148 mcg-113 mg-45 mg-17.4 mg tablet (PreserVision [...] 90.8 H, Lymph % (Auto) 3.0 L, Wilkes % (Auto) 5.0, Eos % (Auto) 0.1, [...] 19:30 EST Reading Location ID and State: [id number] / [employer] Tel , Service support , Chest X-Ray [...] for bowel perf treated conservatively -Treated at [facility] -s/p cipro and flagyl, no present abd complaints # Disseminated histoplasmosis -Continue itraconazole twice daily -Patient to follow-up with a Dr. Hart in 3 months # Recent COVID-19 -Tested positive here end of February -No resp complaints #Hx COPD -Continue inhalers #Hx and mod pericardial effusion -Seen at [facility] and pt advised to f/u outpt -Will [...] documentation, 78Minutes Charges/Coding Visit Charges Inpatient E&M: 53324 Init Hosp L3 03/31/232058 <Electronically signed by Laine Veras MD> Cosigner Signature (if applicable): CC: Dr. Claudine Durán MD; Dr. Laine Veras MD~ Signed [facility] Work Phone: [phone]) 805-259502-10-2024 Discharge summary Author Martín Cornejo [facility] March 31, 2023 8:00pm Note Date/Time March 31, 2023 5:48pm [facility] Medical Records Department [address] [place] [address] Emergency Department Summary 03/31/23 MR#: [id number] Acct: [id number] Name: HAYDEE BUSTAMANTE Rep #:[id number] : 1945 77 From: Martín Cornejo DO PCP: Dr. Claudine Durán MD Status:RE G ER Location: ED HPI <MEENU Leger - Last Filed: 03/31/23 19:55> History of Present Illness Chief Complaint: Edema Narrative Narrative: Patient is a 77-year-old female with a long history of lower leg edema, history of COPD, patient is on Coumadin, histoplasmosis, [facility], worsening swelling to [...] Q24H 03/19/23 [History Last Taken Unknown] vitamins A,C,M-swne-jtyuob 2,148 mcg-113 mg-45 mg-17.4 mg tablet (PreserVision [...] <MEENU Leger - Last Filed: 03/31/23 19:55> [facility] Lab Data Labs: Laboratory Results [...] 90.8 H Lymph % (Auto) 3.0 L Wilkes % (Auto) 5.0 Eos % (Auto) 0.1 [...] Cornejo, DO - Last Filed: 03/31/23 20:00> [facility] Narrative Medical decision making narrative: Patient [...] hospitalist. This patient was seen with a PA/TOY TRAINS AND ACCESSORIES SALESPERSON Individually assessed they patient including history and physical. I have reviewed everything on the chart that is availableand agree with the documentation provided by the PA/TOY TRAINS AND ACCESSORIES SALESPERSON including discussion about the assessment, treatment plan, [...] 90.8 H Lymph % (Auto) 3.0 L Wilkes % (Auto) 5.0 Eos % (Auto) 0.1 [...] to thrive Disposition Disposition: Acute Care Hospital [facility] What to do if you have Problems For any increased pain, shortness of breath, bleeding, nausea or vomiting, chestpain, or any unexpected problems, contact your Primary Care Provider. Call [facility] ([phone]) or report to the closest Emergency Room. Call 911 if necessary. 03/31/231999 <Electronically signed by Martín Cornejo DO> Cosigner Signature (if applicable): 03/31/231954 <Electronically signed by Frederick CORRIGAN> CC: Dr. Claudine Durán MD ~ Signed [facility] Work Phone: 1(785) 544-129902-10-2024 Discharge summary Author [facility] March 31, 2023 8:00pm Note Date/Time March 31, 2023 5:48pm [facility] Medical Records Department [address] [place] [address] Emergency Department Summary 03/31/23 MR#: [id number] Acct: [id number] Name: HAYDEE BUSTAMANTE Rep #:[id number] : 1945 77 From: Martín Cornejo DO PCP: Dr. Claudine Durán MD Status:RE G ER Location: ED HPI <MEENU Leger - Last Filed: 03/31/23 19:55> History of Present Illness Chief Complaint: Edema Narrative Narrative: Patient is a 77-year-old female with a long history of lower leg edema, history of COPD, patient is on Coumadin, histoplasmosis, presenting to the [facility] for failure to thrive, worsening swelling [...] Q24H 03/19/23 [History Last Taken Unknown] vitamins A,C,X-ggmv-ecpfht 2,148 mcg-113 mg-45 mg-17.4 mg tablet (PreserVision [...] Blood Pressure Mean 65 Pulse Ox 100 [facility] <MEENU Leger - Last Filed: 03/31/23 19:55> [facility] Lab Data Labs: Laboratory Results [...] 90.8 H Lymph % (Auto) 3.0 L Wilkes % (Auto) 5.0 Eos % (Auto) 0.1 [...] Cornejo, DO - Last Filed: 03/31/23 20:00> [facility] Narrative Medical decision making narrative: Patient [...] hospitalist. This patient was seen with a PA/TOY TRA[employer] ACCESSORIES SALESPERSON Individually assessed they patient including history and physical. I have reviewed everything on the chart that is availableand agree with the documentation provided by the PA/TOY TRAINS AND ACCESSORIES SALESPERSON including discussion about the assessment, treatment plan, [...] 90.8 H Lymph % (Auto) 3.0 L Wilkes % (Auto) 5.0 Eos % (Auto) 0.1 [...] to thrive Disposition Disposition: Acute Care Hospital [facility] What to do if you have Problems For any increased pain, shortness of breath, bleeding, nausea or vomiting, chestpain, or any unexpected problems, contact your Primary Care Provider. Call [facility] ([phone]) or report to the closest Emergency Room. Call 911 if necessary. 03/31/231999 <Electronically signed by Martín Cornejo DO> Cosigner Signature (if applicable): 03/31/231954 <Electronically signed by Frederick CORRIGAN> CC: Dr. Claudine Durán MD ~ Signed [facility] Work Phone: 1(772) 848-662902-07-2024 Discharge summary Author Etienne Thacker [facility] March 28, 2023 8:37pm Note Date/Time March 28, 2023 5 :11pm [facility] Medical Records Department [address] [place] [address] Emergency Department Summary 03/28/23 MR#: [id number] Acct: [id number] Name: HAYDEE BUSTAMANTE Rep #:[id number] : 1945 77 From: Etienne Thacker MD [...] Prior similar symptoms: Yes Recent Illness/Hospital[facility] Medical History Colitis [...] Q24H 03/19/23 [History Last Taken Unknown] vitamins A,C,C-isom-djqbvb 2,148 mcg-113 mg-45 mg-17.4 mg tablet (PreserVision [...] [facility]. Her labs [...] 80.2 H Lymph % (Auto) 7.4 L Wilkes % (Auto) 9.8 Eos % (Auto) 0.0 [...] 18:09 EST Reading Location ID and State: [facility] / [place] Tel , Service support , [...] rhythm rate 81 no acute signs of IN or ischemia. No significant dysrhythmia. Discharge Plan [...] your Primary Care Provider. Call [facility] ([phone]) or report to the closest Emergency Room. Call 911 if necessary. 03/28/232036 <Electronically signed by Etienne Thacker MD> Cosigner Signature (if applicable): CC: Dr. Claudine Durán MD ~ Signed [facility] Work Phone: 1(509) 760-905002-05-2024 Discharge summary Author Martín Cornejo [facility] March 26, 2023 4:23pm Note Date/Time March 26, 2023 1 :02pm [facility] Medical Records Department [address] [place] [address] Emergency Department Summary 03/26/23 MR#: [id number] Acct: [id number] Name: HAYDEE BUSTAMANTE Rep #:[id number] : 1945 77 From: Martín Cornejo DO PCP: Dr. Claudine Durán MD Status:AD [facility] Location: [facility] UK652-5 HPI History of Present Illness Chief Complaint: Shortness of Breath Narrative Narrative: 77-year-old female presenting with shortness of breath. She needs placement. She is unable to care for self at home. [facility] due to concern for bowel perforation which [...] So they can discharge her home from [facility]. Patient may need a TAVR in the future. She may need mitral valve repair.. Her creatinine was elevated while she was at [facility]. She was discharged home on Cipro and Flagyl. She will continue itraconazole twice daily. She is given Imodium for diarrhea. He has 4 more days of dexamethasone. She was to hold her HCTZ/irbesartan [facility] Medical History (Updated 03/26/23 [...] Q24H 03/19/23 [History Last Taken Unknown] vitamins A,C,T-idbp-jrjoox 2,148 mcg-113 mg-45 mg-17.4 mg tablet (PreserVision [...] 80.3 H Lymph % (Auto) 6.3 L Wilkes % (Auto) 9.6 Eos % (Auto) 0.0 [...] 13:20 EST Reading Location ID and State: [address] [place] [address] , Service support , Discharge Plan Triage Chief Complaint: Shortness of Breath ED Provider: Martín Cornejo Dx/Rx/DC Orders Primary Care Provider: Claudine Durán What to do if you have Problems For any increased pain, shortness of breath, bleeding, nausea or vomiting, chestpain, or any unexpected problems, contact your Primary Care Provider. Call [facility] ([phone]) or report to the closest Emergency Room. Call 911 if necessary. 03/26/23 0182 <Electronically signed by Martín Cornejo DO> Cosigner Signature (if applicable): CC: Dr. Claudine Durán MD ~ Signed [facility] Work Phone: 1(473) 419-726102-04-2024 NoteHNO ID: [id number] Author: ARMEN FERNANDEZ RN Service: Nursing Author Type: Registered Nurse Type: Nursing Progress Note Filed: 03/25/2023 08:58 Note Text: Sepsis alert, sound paged, vitals stable, pt stable, waitng for call-back from sound.[facility]02-03-2024 NoteHNO ID: [id number] Author: SHARAN RIVAS MD Service: Hospital Medicine [...] (SPORANOX) 200 mg ORAL BID phenol 1 [place] (CHLORASEPTIC) 1 [place] MUCOUS MEMBRANE (TOPICAL MOUTH AND THROAT) q [...] was found to be COVID-19 positive in [place]. Imaging showed intraperitoneal air and pneumatosis intestinalis and patient was transferred to [facility]. Pulmonology was consulted and patient was started on remdesivir and Decadron for COVID-19. Also started on itraconazole, Cipro and Flagyl. Surgery was involved with no surgical plans. # Pneumatosis intestinalis and pneumoper (more content not included)...[facility]02-03-2024 NoteHNO ID: [id number] Author: MAGAN VILLAFUERTE DO Service: Pulmonary Disease [...] of disseminated histoplasmosis. She is followed in [place], [place]. She has a history of previous [...] She presented to the emergency room at [facility] after a vigorous coughing episode and coughing [...] (SPORANOX) 200 mg ORAL BID phenol 1 [place] (CHLORASEPTIC) 1 [place] MUCOUS MEMBRANE (TOPICAL MOUTH AND THROAT) q [...] 2 months. Thank you [facility] NoteHNO ID: [id number] Author: AMERICA RODRIGUEZ RN Service: Care Management Author Type: Registered Nurse Type: Care Mgt Progress Note Filed: 03/23/2023 14:44 Note Text: CARE MANAGEMENT PROGRESS NOTE SERVICE DATE: 03/23/2023 SERVICE TIME: 12:22 PM LOS: 4 days Post-Acute Discharge Planning Patient Goal(s): Be able to go home, General wellness Merrill of Choice Explained: Merrill of Choice Given: No Reason Not Given: [...] 23, 2023 TIME: 2:37 PM PAGER/CONTACT #: [phone] 03-[facility]23 NoteHNO ID: [id number] Author: MAGAN VILLAFUERTE DO Service: Pulmonary Disease [...] of disseminated histoplasmosis. She is followed in [place], [place]. She has a history of previous [...] She presented to the emergency room at [facility] after a vigorous coughing episode and coughing [...] content not included)...[facility]02-02-2024 NoteHNO ID: [id number] Author: SHARAN RIVAS MD Service: Hospital Medicine [...] (SPORANOX) 200 mg ORAL BID phenol 1 [place] (CHLORASEPTIC) 1 [place] MUCOUS MEMBRANE (TOPICAL MOUTH AND THROAT) q [...] content not included)...[facility]02-01-2024 NoteHNO ID: [id number] Author: GENO HART MD Service: Infectious Disease [...] home -Patient can call my office at [phone] to get an appointment for about 3 [...] for recurrent lower extremity DVT, presented to [facility] 03/19/2023 for hemoptysis, going to the [place] ED but then sent here due to [...] be COVID-positive. Interestingly a CAT scan at [facility] found pneumatosis intestinalis and intraperitoneal free air comp (more content not included)...[facility]02-01-2024 NoteHNO ID: [id number] Author: MAGAN VILLAFUERTE DO Service: Pulmonary Disease [...] of disseminated histoplasmosis. She is followed in [place], [place]. She has a history of previous [...] Positive PCR for COVID-19 supposedly reported from [facility]. Chest and abdomen/pelvis reviewed CTA chest 03/19/2023 No pulmonary embolism Prominent reticular no (more content not included)...[facility]02-01-2024 NoteHNO ID: [id number] Author: YAN PEREZ DO Service: General Surgery [...] 03/22/2023 1:52 PM][facility]02-01-2024 NoteHNO ID: [id number] Author: JOSE LUIS CRISTOBAL DO Service: General [...] if on RNF.[facility]02-01-2024 NoteHNO ID: [id number] Author: SHARAN RIVAS MD Service: Hospital Medicine [...] (SPORANOX) 200 mg ORAL BID phenol 1 [place] (CHLORASEPTIC) 1 [place] MUCOUS MEMBRANE (TOPICAL MOUTH AND THROAT) q [...] content not included)...[facility]02-01-2024 NoteHNO ID: [id number] Author: PAMELA HALL MD Service: General Surgery Author Type: Physician Type: Progress Notes Filed: 04/25/2023 15:56 Note Text: Emergency General Surgery Progress Note SERVICE DATE: March 22, 2023 Emergency General Surgery Service Pager: For questions or concerns Mon-Fri 6a-5p please page [phone]. After 5pm and on Weekends and Holidays, please page [phone] if in ICU or [phone] if on [...] 0659 03/22/23 07 - 03/23/23 0659 Shift 9782-7814 5318-9894 7933-4371 24 Hour Total 4500-5127 1815-2705 9030-6175 24 Hour Total INTAKE IV 300 300 [...] ORAL DIRECTED PRN remdesivir in NaCl 0.9% Vial-Mate/ADD-[place] 100 mg 275 mL 100 mg [...] (SPORANOX) 200 mg ORAL TID phenol 1 [place] (CHLORASEPTIC) 1 [place] MUCOUS MEMBRANE (TOPICAL MOUTH AND THROAT) q [...] 03/07/2015 Overview Note: Dr. Hurley ([facility]) Assessment: 77 year old female with PMH significant for RA (Humira), HTN, h/o disseminated Histoplasmosis, bronchiectasis, VTE (on coumadin), pulmonary nodules, and presenting to the ED today after an episode of hemoptysis at home. CTAP had an incidental finding of a small amount of intraperitoneal air and pneumatosis in the colon for which surgery was consulted. Hospital Cou (more content not included)...[facility] 03-21-2023 NoteHNO ID: [id number] Author: GENO HART MD Service: Infectious Disease [...] for recurrent lower extremity DVT, presented to [facility] 03/19/2023 for hemoptysis, going to the [facility] ED but then sent here due to [...] be COVID-positive. Interestingly a CAT scan at [facility] found pneumatosis intestinalis and intraperitoneal free air [...] -- 03/21/23 1000 remdesivir in NaCl 0.9% Vial-Mate/ADD-[place] 100 mg 275 mL 100 mg, INTRAVENOUS, EVERY 24 HOURS See Hyperspace for full Linked Orders Report. 03/23/23 0959 03/20/23 1300 itraconazole 200 mg oral liquid (SPORANOX) 200 mg, ORAL, 3 TIMES DAILY 03/23/23 1259 03/19/23 2000 cipro (more content not included)...[facility] 03-21-2023 NoteHNO ID: [id number] Author: PAMELA HALL MD Service: General Surgery Author Type: Physician Type: Progress Notes Filed: 03/22/2023 07:10 Note Text: Emergency General Surgery Progress Note SERVICE DATE: March 21, 2023 Emergency General Surgery Service Pager: For questions or concerns Mon-Fri 6a-5p please page [phone]. After 5pm and on Weekends and Holidays, please page [phone] if in ICU or [phone] if on RNF. SUBJECTIVE: NAEON. AF and [...] 0659 03/21/23 07 - 03/22/23 0659 Shift 1326-9716 1128-3265 3958-4103 24 Hour Total 2881-6296 8512-6797 9453-8943 24 Hour Total INTAKE IV 1275 1275 [...] Dose Route Frequency remdesivir in NaCl 0.9% Vial-Mate/ADD-[place] 100 mg 275 mL 100 mg [...] (SPORANOX) 200 mg ORAL TID phenol 1 [place] (CHLORASEPTIC) 1 [place] MUCOUS MEMBRANE (TOPICAL MOUTH AND THROAT) q [...] 03/07/2015 Overview Note: Dr. Hurley ([facility]) Assessment: 77 year old female with PMH significant for RA (Humira), HTN, h/o disseminated Histoplasmosis, bronchiectasis, VTE (on coumadin), pulmonary nodules, and presenting to the ED today after an episode of hemoptysis at home. CTAP had an incidental finding of a small amount of intraperitoneal air and pneumatosis in the colon. INR on arrival to [facility] was 9. She given Vitamin K and transferred here. Hospital Course/Operations/Procedures: * No surgery found * Plan: Pneumatosis intestinalis and intraperitoneal free air - labs and imaging reviewed - Small amount of air on (more content not included)...[facility]01[facility]31[facility]2024 NoteHNO ID: [id number] Author: MAGAN VILLAFUERTE DO Service: Pulmonary Disease [...] of disseminated histoplasmosis. She is followed in [place], [place]. She has a history of previous [...] She presented to the emergency room at [facility] after a vigorous coughing episode and coughing [...] Positive PCR for COVID-19 supposedly reported from [facility]. Chest and abdomen/pelvis reviewed CTA chest [...] content not included)...[facility]01[facility]30-2024 NoteHNO ID: [id number] Author: ELÍAS QUINN, PAULA Service: Care Management Author Type: Registered Nurse Type: Care Mgt Initial Assessment Filed: 03/20/2023 16:23 Note Text: CARE MANAGEMENT: ASSESSMENT AND DISCHARGE PLAN SERVICE DATE: March 20, 2023 SERVICE TIME: 4:19 PM PCP: Claudine Durán MD Primary Contact: Extended Emergency Contact Information Primary Emergency Contact: Suzie Araiza ([place]) Address: [facility] [address] [place] [address] [facility] Relation: Friend Secondary Emergency Contact: Padmini Chang Address: [address] [place] [address] [facility] Mobile Relation: Friend Admission Status: Inpatient Insurance Provider: [employer] PPO Discharge Planning requested by: Per Department Practice Potential Transition Plans Home Advance Directives Current Advance Directive: None Dental Technician Apprentice Attempted to Assist with AD Completion: Yes [...] wellness, Less pain, Wean off of O2 Merrill of Choice Explained: Merrill of Choice Given: No Reason Not Given: [...] 20, 2023 TIME: 4:19 PM CONTACT #: [phone] Note HNO ID: [id number] Author: MAGAN VILLAFUERTE DO Service: Pulmonary Disease [...] of disseminated histoplasmosis. She is followed in [place], [place]. She has a history of previous [...] She presented to the emergency room at [facility] after a vigorous coughing episode and coughing [...] Positive PCR for COVID-19 supposedly reported from [facility]. Chest and abdomen/pelvis reviewed CTA chest [...] content not included)...[facility]01-30-2024 NoteHNO ID: [id number] Author: PAMELA HALL MD Service: General Surgery [...] 0659 03/20/23 07 - 03/21/23 0659 Shift 9587-7730 0703-7043 6251-3265 24 Hour Total 9302-7332 0681-6968 9007-1823 24 Hour Total INTAKE IV 300 100 [...] in the colon. INR on arrival to [facility] was 9. She given Vitamin K and [...] chemical anticoagulation - INR on arrival to [facility] was 9. She given Vitamin K prior to transfer - continue serial abdominal exams - notify general surgery of any acute changes in clinical status D/w Dr. Hall SIGNATURE: Christ Camarena MD PATIENT NAME: Haydee Bustamante DATE: March 20, 2023 TIME: 921 Pager: [phone] Emergency General Surgery Service Pager: For questions or concerns Mon-Sun 6a-5p please page [phone]. After 5pm and on Weekends and Holidays, please page [phone] if in ICU or [phone] if on RNF. Emergency General Surgery (EGS) Staff Addendum: See admit H/P for full attestation following today's patient care visit. I evaluated the patient and personally participated in the jim components. I agree with the resident's findi (more content not included)...[facility]01-29-2024 Discharge summary Author Bob Elias [facility] March 19, 2023 5:11pm Note Date/Time March 19, 2023 1 0:38am [facility] Medical Records Department [address] [place] [address] Emergency Department Summary 03/19/23 MR#: [id number] Acct: [id number] Name: HAYDEE BUSTAMANTE Rep #:[id number] : 1945 77 From: Bob Amaro PCP: [...] states she has a history of histoplasmosis. [facility] Medical History (Updated 03/19/23 @ 15:03 by [...] (Auto) 68.8 Lymph % (Auto) 15.1 L Wilkes % (Auto) 10.9 H Eos % (Auto) [...] (38), Including time spent:, Discussing w/Patient &/or Family/Toolmaker, Discussing w/Consultants, Arranging Admission or Transfer and [...] Disposition Disposition: Acute Care Hospital Discharge Location: [facility] What to do if you have Problems For any increased pain, shortness of breath, bleeding, nausea or vomiting, chestpain, or any unexpected problems, contact your Primary Care Provider. Call [facility] ([phone]) or report to the closest Emergency Room. Call 911 if necessary. 03/19/23 1711 <Electronically signed by Bob Elias DO> Cosigner Signature (if applicable): CC: Dr. Claudine Durán MD ~ Signed [facility] Work Phone: 1(365) 939-344812-20-2023 History of Present illness Narrative* Kathleen Alegria [...] 07, 2023 11:06 AM documented in this encounterShelby [facility] Hospital12-20-2023 History of Present illness Narrative* Adri Zaragoza APRN.COAT OPERATOR INSULATOR - 02/07/2023 10:52 AM EST Subjective HPI [...] factor (HCC) 03/07/2015 Dr. Hurley ([facility]) Unspecified hemorrhoids without mention of complication [...] SPINE FUSN,POST INTERBODY 2011 Dr. Armando at [facility]. Diskectomy and laminectomy PAST SURGICAL HISTORY OF [...] fluticasone (FLONASE) 50 mcg/actuation nasal spray^Use 1 [place] in each nostril once daily.^Disp: 3 Each^Rfl: [address] (PROTONIX) 40 mg tablet^Take 1 tablet by mouth once daily.^Disp: 90 tablet^Rfl: 3 albuterol HFA (PROAIR HFA) 90 mcg/actuation inhaler^Inhale 2 Puffs as instructed every 4 hours as needed.^Disp: 1 Each^Rfl: 2 vit A,C,U-Fnxf-Utkcrc (OCUVITE PRESERVISION) 2,148 mcg-113 mg-45 mg-17.4mg tab^Take [...] A/B & RSV NAAT, ROUTINE Adri Zaragoza APRN.COAT OPERATOR INSULATOR documented in this encounterShelby Memorial Hospital12-15-2023 History of Present illness Narrative* Melissa Means RN - 02/02/2023 3:19 PM EST pcp agrees with information * Melissa Means RN - 02/02/2023 9:47 AM EST patient had inr completed at [facility] patients inr is 2.1 (patients inr range [...] for follow up INR. documented in this encounterShelby Memorial Hospital12-06-2023 Miscellaneous Notes* Telephone Encounter - Magalie Ngo LPN - 01/24/2023 9:02 AM EST GEREMIAS 07/20/22 Patient phones requesting refills as follows: Requested Prescriptions Pending Prescriptions Disp Refills budesonide-formoterol (SYMBICORT) 160-4.5 mcg/actuation inhaler [Pharmacy Med Name: BUDESONIDE/FORMINHALER 10.2GM 160/4.5MCG] 30.6 g 3 Sig: USE 2 INHALATIONS TWICE A DAY INSTRUCTED Please review and advise. Magalie Ngo LPN documented in this encounterShelby Memorial Hospital11-29-2023 History of Present illness Narrative* Melissa Means RN - 01/17/2023 3:02 PM EST pcp agrees with information * Melissa Means RN - 01/17/2023 1:55 PM EST patient had inr completed at [facility] patients inr is 1.9 (patients inr range [...] reading since dose change documented in this encounterShelby [facility] Hospital11-22-2023 History of Present illness Narrative* Melissa Means RN - 01/10/2023 3:47 PM EST pcp agrees with information PATIENT NOTIFIED OF INFORMATION * Melissa Means RN - 01/10/2023 1:38 PM EST patient had inr completed at [facility] patients inr is 2.9 (patients inr range [...] and advise on recommendation documented in this encounterShelby [facility] Hospital11-16-2023 History of Present illness Narrative* Yesenia Weinstein LPN - 01/04/2023 4:24 PM EST Patient notified of providers message and verbalized understanding. * Jimbo Swanson APRN.CNS - 01/04/2023 3:29 PM EST OK to change coumadin to 7.5mg Tues,Sat,Sun and 5mg all other days and recheck INR in 1 week * Melissa Means RN - 01/04/2023 11:34 AM EST patient had inr completed at [facility] patients inr is 2.6 (patients inr range [...] and advise on recommendation documented in this encounterShelby Memorial Hospital11-16-2023 Instructions* Patient Instructions* Jimbo Swanson APRN.CNS - 01/04/2023 10:50 AM EST It appears that you have better coverage for the RSV vaccine at your local pharmacy. documented in this encounterShelby Memorial Hospital11-16-2023 History of Present illness Narrative* Jimbo Swanson, DIGITAL COMMUNICATIONS MANAGER.AMUSEMENT RIDE OPERATOR - 01/04/2023 10:49 AM EST SUBJECTIVE: RSV [...] and COPD. HPI excerpted from previous visits: Dairy Associate: Florence Collins MD, last seen July 20, 2022. Seen for follow-up of lung nodules bronchiectasis. Noted are a likely etiology for underlying bronchiectasis. Noted new nodularity of lung,likely represents inflammatory nodules. Will need follow-up CT. No this may improve with bronchopulmonary hygiene. Spiriva and intermittent albuterol has helped with cough. Stable. Flyer Maker: William Messina BAV, aortic stenosis , last seen in cardiology August 29, 2022 by SANTY Love. Continued on current treatments unchanged. Follow-up echo advised, not yet scheduled.. 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 Continues with methotrexate, Humira.seen by [...] Occasional bruising. [facility] coumadin clinic. Referred by arborist representative to see orthopedic physician for her hip. [...] fluticasone (FLONASE) 50 mcg/actuation nasal spray^Use 1 [place] in each nostril once daily.^Disp: 3 Each^Rfl: [address] (PROTONIX) 40 mg tablet^Take 1 tablet by mouth once daily.^Disp: 90 tablet^Rfl: 3 albuterol HFA (PROAIR HFA) 90 mcg/actuation inhaler^Inhale 2 Puffs as instructed every 4 hours as needed.^Disp: 1 Each^Rfl: 2 vit A,C,D-Ryjr-Qmosgj (OCUVITE PRESERVISION) 2,148 mcg-113 mg-45 mg-17.4mg tab^Take [...] factor (HCC) 03/07/2015 Dr. Hurley ([facility]) Unspecified hemorrhoids without mention of complication [...] to get at pharmacy discussed risks - [employer] COVID-19 VACCINE ( SEASON) AGE 12+ YR in office today Jimbo Swanson APRN.CNS Medical Decision Making: Problems: Low: 2+ self-limited or minor problems Risk: Moderate: Drug management Medical Decision Making Level: 3 - Low documented in this encounterShelby [facility] Hospital11-01-2023 Miscellaneous Notes* Telephone Encounter - Maritza [...] you. Maritza Preston LPN. documented in this encounterShelby Memorial Hospital10-26-2023 History of Present illness Narrative* Jimbo Swanson APRN.CNS - 12/14/2022 12:11 PM EDT Continue with Coumadin dose unchanged and check INR in 2 or 3 weeks * Melissa Means RN - 12/14/2022 10:25 AM EDT patient had inr completed at [facility] patients inr is 2.2 (patients inr range [...] patient declines blood draw documented in this encounterShelby Memorial Hospital10-19-2023 History of Present illness Narrative* Yesenia [...] AM EDT patient had inr completed at [facility] patients inr is 2.5 (patients inr range [...] and advise on recommendation documented in this encounterShelby Memorial Hospital10-02-2023 Miscellaneous Notes* Letter - Coordinator, José - 11/20/2022 9:52 AM EDT November 20, 2022 PID: [id number] Haydee Bustamante [address] [place] [address] Dear Ms. Bustamante, We are pleased to [...] report will [facility] permanent medical record and are available for your continuing care. Thank you for allowing us to help in meeting your health care needs. Sincerely, Dr. Basurto Interpreting Radiologist [facility] (Normal over 40) documented in this encounterShelby Memorial Hospital09-29-2023 History of Present illness Narrative* Aide [...] 17, 2022 9:00 AM documented in this encounterShelby Memorial Hospital09-29-2023 Miscellaneous Notes* Result Encounter Note - Jimbo Swanson APRN.CNS - 11/17/2022 9:30 AM EDT Negative, 1 year screening follow-up documented in this encounterShelby Memorial Hospital09-21-2023 History of Present illness Narrative* Jimbo Swanson APRN.CNS - 11/09/2022 4:41 PM EDT Continue Coumadin dose unchanged and check INR in 4 weeks * Melissa Means RN - 11/09/2022 10:27 AM EDT patient had inr completed at [facility] patients inr is 1.9 (patients inr range [...] follow u p INR. documented in this encounterShelby Memorial Hospital09-21-2023 Miscellaneous Notes* Telephone Encounter - Melissa Means RN - 11/09/2022 10:29 AM EDT patients orders for coumadin clinic inr's has at this time. new order has been pended for approval if possible so that patient can continue to get inr's completed thru the coumadin clinic. coumadin clinic nurse only needs called if order can not be approved. documented in this encounterShelby Memorial Hospital09-21-2023 History of Present illness Narrative* Ron Veras MD - 11/09/2022 8:50 AM EDT Ron Veras MD Department of Orthopaedics Orthopaedics [address] [place] [address] Dept: [phone] Dept November 09, 2022 CHIEF COMPLAINT: New [...] acute pathology. 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 Life Science Teacher: KRYSTAL Transcribe Date/Time: Dec 31 2021 11:55A [...] ([facility]) 03/07/2015 Dr. Hurley ([facility]) Unspecified hemorrhoids without mention of complication [...] SPINE FUSN,POST INTERBODY 2012 Dr. Armando at [facility]. Diskectomy and laminectomy PAST SURGICAL HISTORY OF [...] (FLONASE) 50 mcg/actuation nasal spray Use 1 [place] in each nostril once daily. pantoprazole DR (PROTONIX) 40 mg tablet Take 1 tablet by mouth once daily. albuterol HFA (PROAIR HFA) 90 mcg/actuation inhaler Inhale 2 Puffs as instructed every 4 hours as needed. vit A,C,R-Omfe-Fjasyt (OCUVITE PRESERVISION) 2,148 mcg-113 mg-45 mg-17.4mg tab [...] physician via [place] mail. Twyla Cuevas [address] [address] Claudine Durán MD [address] [address] Ron Veras MD documented in this encounterShelby Memorial Hospital09-14-2023 Miscellaneous Notes* Telephone Encounter - Isabella Zacarias RN - 11/02/2022 10:12 AM EDT Patient calls back and states that [facility] does have prescription for coumadin. Isabella Zacarias RN * Telephone Encounter - Melanie Mcgregor RN - 11/01/2022 5:24 PM EDT Patient calling to say [facility] [place] tells her they did not receive script for short fill Warfarin. Patient asking if it can be sent again. Pended. Melanie Mcgregor RN documented in this encounterShelby Memorial Hospital09-12-2023 Miscellaneous Notes* Telephone Encounter - Charissa [...] patient. Charissa Perez LPN documented in this encounterShelby Memorial Hospital09-12-2023 Miscellaneous Notes* Telephone Encounter - Ashly Shay RN - 10/31/2022 8:02 AM EDT Patient calling with request for medication/refill: Patient/caregiver requesting refill of Warfarinbe called to [facility] pharmacy at online.. Patient denies any new or worsening symptoms of which a provider is not aware: Yes. Patient just discovered she will run out of the below rx on . Is requesting a short term supply be sent to [facility] in [place] and the remainder sent to [facility]. Has been taking medication as ordered. warfarin (COUMADIN) 5 mg tablet 30 tablet 3 07/11/2022 Sig: Take 7.5 mg Tu, Anabel,Fri, Sat, Sun; and 5 mg on Sunday and Sunday Sent to pharmacy as: warfarin (COUMADIN) 5 mg tablet documented in this encounterShelby Memorial Hospital09-08-2023 History of Present illness Narrative* Jimbo [...] bicuspid valve, lung nodule bronchiectasis and COPD. Dairy Associate: Florence Collins MD, last seen July 20, 2022. Seen for follow-up of lung nodules bronchiectasis. Noted are a likely etiology for underlying bronchiectasis. Noted new nodularity of lung,likely represents inflammatory nodules. Will need follow-up CT. No this may improve with bronchopulmonary hygiene. Spiriva and intermittent albuterol has helped with cough. Stable. Flyer Maker: William Messina BAV, aortic stenosis , last seen in cardiology August 29, 2022 by SANTY Love. Continued on current treatments unchanged. Follow-up echo advised, not yet scheduled.. 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 Continues with methotrexate, Humira.seen by [...] pain, currently taking gabapentin. Plans to see transportation specialist, referred by arborist representative. Referred by arborist representative to see orthopedic physician for her hip. [...] fluticasone (FLONASE) 50 mcg/actuation nasal spray^Use 1 [place] in each nostril once daily.^Disp: 3 Each^Rfl: [...] hours as needed.^Disp: 1 Each^Rfl: 2 vit A,C,T-Hoql-Poedsn (OCUVITE PRESERVISION) 2,148 mcg-113 mg-45 mg-17.4mg tab^Take [...] factor (HCC) 03/07/2015 Dr. Hurley ([facility]) Unspecified hemorrhoids without mention of complication [...] ICD9: 724.3, ICD10: M54.41 Plans to see transportation specialist 6. Hip pain, acute, left - ICD9: 719.45, ICD10: M25.552 7. Rheumatoid arthritis involving multiple sites with positive rheumatoid factor (HCC) - ICD9: 714.0, ICD10: M05.79 Followed by [facility] 8. Bronchiectasis without complication (HCC) - ICD9: [...] Level: 4 - Moderate documented in this encounterShelby Memorial Hospital09-08-2023 Instructions* Patient Instructions* Jimbo Swanson APRN.CNS - 10/27/2022 9:01 AM EDT Consider getting new COVID booster when it becomes available either in clinic or at pharmacy. documented in this encounterShelby Memorial Hospital09-07-2023 History of Present illness Narrative* Jimbo Swanson APRN.CNS - 10/26/2022 4:38 PM EDT Continue with Coumadin dose unchanged and check INR in 2 weeks * Melissa Means RN - 10/26/2022 12:14 PM EDT patient had inr completed at [facility] patients inr is 1.7 (patients inr range [...] reading since dose change documented in this encounterShelby Memorial Hospital08-24-2023 History of Present illness Narrative* Maritza [...] PM EDT patient had inr completed at [facility] patients inr is 1.5 (patients inr [...] and advise on recommendation documented in this encounterShelby Memorial Hospital08-21-2023 Miscellaneous Notes* Telephone Encounter - Claudine [...] Thank you. CARMEN Viveros documented in this encounterShelby Memorial Hospital08-07-2023 Miscellaneous Notes* Telephone Encounter - Will [...] year. Thanks ~ JJ documented in this encounterShelby Memorial Hospital07-28-2023 Miscellaneous Notes* Telephone Encounter - Muna [...] dose and pt findings. documented in this encounterShelby Memorial Hospital07-20-2023 History of Present illness Narrative* Melissa Means RN - 09/07/2022 4:07 PM EDT PATIENT NOTIFIED OF INFORMATION * Jimbo Swanson APRN.CNS - 09/07/2022 3:49 PM EDT Okay for 5 mg Coumadin Sunday and 7.5 mg all other days. Recheck INR in 1 week * Melissa Means RN - 09/07/2022 11:59 AM EDT patient had inr completed at [facility] patients inr is 2.4 (patients inr range [...] weeks patient has been scheduled at that [facility] for an inr follow up 09/14/22 (order is already in place) please review and advise on recommendation documented in this encounterShelby Memorial Hospital07-11-2023 Instructions* Patient Instructions* Rachelle Schulte APRN.COAT OPERATOR INSULATOR - 08/29/2022 9:51 AM EDT Please schedule [...] up in 6 months documented in this encounterShelby Memorial Hospital07-11-2023 History of Present illness Narrative* Rachelle Schulte APRN.CNP - 08/29/2022 9:30 AM EDT Images from the original note were not included. [facility] Les Saunders Department of Cardiovascular Medicine SECTION [...] The last office visit visit with Dr. Msesina was 08/12/2022. Patient with 0 hospitalizations or [...] which included preparing to see the patient, [id number] patient care, completing clinical documentation, performing a [...] prior to the follow up. Rachelle Schulte APRN.[facility] Cardiology Nurse Practitioner Section of Regional Cardiology [facility] Dept of Cardiovascular Medicine [facility] [address] [place] [address] Office Office August 29, 2022 7:46 AM This note was partially generated using [employer] recognition system and may contain errors related [...] nodule with faint calcifications suggesting calcified granuloma. Life Science Teacher: [facility] Transcribe Date/Time: Jul 24 2022 10:02A Dictated [...] ([facility]) 03/07/2015 Dr. Hurley ([facility]) Unspecified hemorrhoids without mention of complication [...] and ROS obtained by others. Rachelle Schulte APRN.COAT OPERATOR INSULATOR CURRENT MEDICATIONS: Current Outpatient Medications Medication Sig budesonide-formoterol (SYMBICORT) 160-4.5 mcg/actuation inhaler Inhale 2 Puffs as instructed twice daily. fluticasone (FLONASE) 50 mcg/actuation nasal spray Use 1 [place] in each nostril once daily. warfarin (COUMADIN) 5 mg tablet Take 7.5 mg , Sun,Sun, Sun, Sun; and 5 mg on Sunday and Sunday pantoprazole DR (PROTONIX) 40 mg tablet Take 1 tablet by mouth once daily. albuterol HFA (PROAIR HFA) 90 mcg/actuation inhaler Inhale 2 Puffs as instructed every 4 hours as needed. vit A,C,Y-Vqct-Zdadjt (OCUVITE PRESERVISION) 2,148 mcg-113 mg-45 mg-17.4mg tab [...] mL INTRAVENOUS DIRECTED PRN documented in this encounterShelby Memorial Hospital06-27-2023 Miscellaneous Notes* Telephone Encounter - Magalie Ngo LPN - 08/15/2022 10:20 AM EDT [facility] 07/20/22 Patient phones requesting refills as follows: Requested Prescriptions Pending Prescriptions Disp Refills budesonide-formoterol (SYMBICORT) 160-4.5 mcg/actuation inhaler Sig: Inhale as instructed twice daily. Please review and advise. Magalie Ngo LPN documented in this encounterShelby Memorial Hospital06-25-2023 Miscellaneous Notes* Telephone Encounter - Claudine [...] now. Bakari Catalan LPN documented in this encounterShelby Memorial Hospital06-01-2023 History of Present illness Narrative* Florence Collins MD - 07/20/2022 9:30 AM EDT Images from the original note were not included. . Respiratory Marine Note Patient name: Haydee Bustamante PCP: Claudine Durán MD CC: Follow-up chest CT HPI: Haydee Bustamante 77 year old female former 10 pack year smoker with PMH significant for RA (MTX, Humira), HTN, h/o disseminated Histoplasmosis, bronchiectasis, , VTE, pulmonary nodules, who presents for follow-up. Current inhaled therapy with Symbicort and Spiriva. At [facility] with me, she was a newpatient [...] DATE OF EXAM: Jul 20 2022 9:22AM [facility] 0541 - CT CHEST WO IVCON [...] abdomen within the limits of noncontrast technique.. Steel Plate Caulker (topogram) images: IVC filter present IMPRESSION: Findings [...] ([facility]) 03/07/2015 Dr. Hurley ([facility]) Unspecified hemorrhoids without mention of complication [...] hours as needed.^Disp: 1 Each^Rfl: 2 vit A,C,A-Yqtq-Ivugrl (OCUVITE PRESERVISION) 2,148 mcg-113 mg-45 mg-17.4mg tab^Take [...] fluticasone (FLONASE) 50 mcg/actuation nasal spray^Use 1 [place] in each nostril once daily.^Disp: 3 Each^Rfl: [...] SPINE FUSN,POST INTERBODY 2012 Dr. Armando at [facility]. Diskectomy and laminectomy PAST SURGICAL HISTORY OF [...] her underlying bronchiectasis Florence Collins MD Respiratory Marine documented in this encounterShelby Memorial Hospital06-01-2023 History of Present illness Narrative* Faviola [...] 20, 2022 9:35 AM documented in this encounterShelby Memorial Hospital05-11-2023 History of Present illness Narrative* Jimbo Swanson APRN.AMUSEMENT RIDE OPERATOR - 06/29/2022 1:52 PM EDT Continue with Coumadin dosing unchanged and check INR in 2 weeks * Melissa Means RN - 06/29/2022 10:28 AM EDT patient had inr completed at [facility] patients inr is 2.1 (patients inr range [...] reading since dose change documented in this encounterShelby Memorial Hospital04-04-2023 Miscellaneous Notes* Telephone Encounter - Claudine [...] from Dr Rani Cowart's office [facility] states they received a signed clearance [...] is scheduled for surgery tomorrow morning. PH: [phone] X [phone] FAX: [phone]. Maricarmen Jacobs LPN documented in this encounterShelby Memorial Hospital03-16-2023 History of Present illness Narrative* Jimbo Swanson APRN.TYLOR - 05/04/2022 12:54 PM EDT Continue Coumadin dose unchanged and check INR in 1 month * Melissa Means RN - 05/04/2022 10:26 AM EDT patient had inr completed at [facility] patients inr is 2.0 (patients inr range [...] for follow up INR. documented in this encounterShelby Memorial Hospital02-16-2023 History of Present illness Narrative* Jimbo Swanson APRN.CNS - 04/06/2022 12:24 PM EST Continue with Coumadin dose unchanged and check INR in 4 weeks * Melissa Means RN - 04/06/2022 9:45 AM EST patient had inr completed at [facility] patients inr is 2.0 (patients inr range [...] for follow up INR. documented in this encounterShelby Memorial Hospital02-09-2023 History of Present illness Narrative* Melissa [...] AM EST patient had inr completed at [facility] patients inr is 2.3 (patients inr range [...] up inr on 04/06/22 documented in this encounterShelby Memorial Hospital01-23-2023 History of Present illness Narrative* Claudine Durán MD - 03/13/2022 10:41 AM EST This note was created using Skeleton Technologiesriter. Subjective Haydee Bustamante is a 76 year old female. Patient presents with: 4 month follow up SUBJECTIVE: Haydee Bustamante is a 76 year old year old lady here today for 4 month follow up appointment for reviewof medical conditions. Following with eye doctor. Has early macular degeneration. Given glasses for it. Having foot surgery at [facility] May 19. Told will be extensive--straighten [...] ([facility]) 03/07/2015 Dr. Hurley ([facility]) Unspecified hemorrhoids without mention of complication Hemorrhoids Current Outpatient Medications Medication Sig naproxen (NAPROSYN) 500 mg tablet Take 1 tablet by mouth twice daily as needed. Take with food gabapentin (NEURONTIN) 300 mg capsule Take 1 capsule by mouth twice daily. fluticasone (FLONASE) 50 mcg/actuation nasal spray Use 1 [place] in each nostril once daily. 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 Noted that has not needed bridging Lovenox when has been off coumadin. Continue present management with anticoagulation. .BP controlled. Continue present management. Claudine Durán MD documented in this encounterShelby Memorial Hospital12-15-2022 History of Present illness Narrative* Jimbo Swanson APRN.CNS - 02/02/2022 1:32 PM EST Continue with Coumadin dose unchanged check INR in 4 weeks * Melissa Means RN - 02/02/2022 10:49 AM EST patient had inr completed at [facility] patients inr is 2.0 (patients inr range [...] for follow up INR. documented in this encounterShelby Memorial Hospital11-29-2022 Miscellaneous Notes* Telephone Encounter - Geni [...] advise. Geni Cintron LPN documented in this encounterShelby Memorial Hospital11-23-2022 Miscellaneous Notes* Telephone Encounter - Lynne Mann LPN - 01/11/2022 9:09 AM EST Spoke with pt and information listed below given. Pt verbalizes understanding. She will get the labs when they are due. Lynne Mann LPN * Telephone Encounter - Claudine Durán MD - 01/11/2022 8:14 AM EST Patient gets labs done for arborist representative so labs are up to date The [...] you. Lynne Mann LPN documented in this encounterShelby Memorial Hospital11-17-2022 History of Present illness Narrative* Melissa Means RN - 01/05/2022 4:[address] haynes he agrees with information * Melissa Means RN - 01/05/2022 1:09 PM EST patient had inr completed at [facility] patients inr is 2.2 (patients inr range [...] follow u p INR. documented in this encounterShelby Memorial Hospital11-12-2022 History of Present illness Narrative* Katarzyna [...] 31, 2021 11:45 AM documented in this encounterShelby [facility] Hospital11-03-2022 History of Present illness Narrative* Melissa Means RN - 12/22/2021 3:56 PM EDT PATIENT NOTIFIED OF INFORMATION * Jimbo Swanson APRN.CNS - 12/22/2021 1:40 PM EDT Recommend Coumadin 7.5 mg today. Then resume usual dosing 5 mg Sunday and 7.5 mg all other days. Check INR 2 weeks * Melissa Means RN - 12/22/2021 11:16 AM EDT patient had inr completed at [facility] patients inr is 1.4 (patients inr [...] up inr on 01/05/22 documented in this encounterShelby [facility] Hospital10-11-2022 History of Present illness Narrative* Florence Collins MD - 11/29/2021 10:00 AM EDT Images from the original note were not included. . Respiratory Marine Note Patient name: Haydee Bustamante PCP: Claudine Durán MD CC: Follow-up lung disease HPI: Haydee Bustamante 76 year old female former [id number] smoker having quit in 1989 with PMH [...] ([facility]) 03/07/2015 Dr. Hurley ([facility]) Unspecified hemorrhoids without mention of complication Hemorrhoids ALLERGIES Allergen Reactions Penicillins Hives fluticasone (FLONASE) 50 mcg/actuation nasal spray^Use 1 [place] in each nostril once daily.^Disp: 3 Each^Rfl: [...] SPINE FUSN,POST INTERBODY 2012 Dr. Armando at [facility]. Diskectomy and laminectomy PAST SURGICAL HISTORY OF [...] treatment per rheumatology Florence Collins MD Respiratory Marine documented in this encounterShelby [facility] Hospital10-06-2022 Miscellaneous Notes* Telephone Encounter - Pili Burgos - 11/24/2021 10:37 AM EDT error documented in this encounterShelby Memorial Hospital09-22-2022 History of Present illness Narrative* Jimbo Swanson APRN.AMUSEMENT RIDE OPERATOR - 11/10/2021 9:20 AM EDT SUBJECTIVE: BP [...] and COPD. 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 States that systematic theology professor discussed possible amputation of toe but would prefer not to go that route. May see an alternate systematic theology professor at [facility]. States took blood pressure medication today. Continues [...] 12 mos RA: controlled currently, following with arborist representative. OAC: no bleeding difficulties. Occasional bruising. Spiriva [...] fluticasone (FLONASE) 50 mcg/actuation nasal spray^Use 1 [place] in each nostril once daily.^Disp: 3 Bottle^Rfl: [...] ([facility]) 03/07/2015 Dr. Hurley ([facility]) Unspecified hemorrhoids without mention of complication [...] Abs Lymph 1.00 - 4.00 k/uL 1.64 Wilkes% % 8.0 Abs Wilkes <0.87 k/uL 0.60 Eosin% % 2.7 Abs [...] (HCC) - ICD9: 496, ICD10: J44.9 - [id number] BL 3. Encounter for immunization - ICD9: V03.89, ICD10: Z23 - [employer] COVID-19 BIVALENT BOOSTER VACCINE, AGE 12+ YR - INFLUENZA SEASONAL QUADRIVALENT HIGH DOSE AGE 65+ 4. Gastroesophageal reflux disease without esophagitis - ICD9: 530.81, ICD10: K21.9 5. Bronchiectasis without complication (HCC) - ICD9: 494.0, ICD10: J47.9 6. COPD without exacerbation (HCC) - ICD9: 496, ICD10: J44.9 7. Aortic stenosis with bicuspid valve - ICD9: 746.3, 746.4, ICD10: Q23.0, Q23.1 Jimbo Swanson APRN.AMUSEMENT RIDE OPERATOR] Jimbo Swanson APRN.CNS Medical Decision Making: Problems: Moderate: 1+ chronic illnesses with change and 2+ stable chronic illnesses Risk: Moderate: Drug management Medical Decision Making Level: 4 - Moderate documented in this encounterShelby [facility] Hospital09-21-2022 Miscellaneous Notes* Telephone Encounter - Claudine [...] can not be approved. documented in this encounterShelby Memorial Hospital09-20-2022 Miscellaneous Notes* Telephone Encounter - Ruby [...] you. Ruby Tobin RN documented in this encounterShelby Memorial Hospital09-13-2022 Instructions* Patient Instructions* Chacho Aspen - 11/01/2021 9:29 AM EDT Your ulceration is now healed Ok to continue with padding as needed F/u as needed documented in this encounterShelby Memorial Hospital09-13-2022 History of Present illness Narrative* Chacho [...] factor (HCC) 03/07/2015 Dr. Hurley ([facility]) Unspecified hemorrhoids without mention of complication [...] (FLONASE) 50 mcg/actuation nasal spray Use 1 [place] in each nostril once daily. (Patientnot taking: [...] SPINE FUSN,POST INTERBODY 2012 Dr. Armando at [facility]. Diskectomy and laminectomy PAST SURGICAL HISTORY OF [...] Has stopped wrapping it. documented in this encounterShelby Memorial Hospital09-08-2022 History of Present illness Narrative* Melissa Means RN - 10/27/2021 11:06 AM EDT patient had inr completed at [facility] patients inr is 1.6 (patients inr range [...] for follow up INR. documented in this encounterShelby Memorial Hospital08-30-2022 Instructions* Patient Instructions* Chacho Louise - 10/18/2021 9:[address] aquacel on ulceration daily Place lambs wool or guaze horizontally between the interspace Secure lambs wool or guaze with daniella wrap or tape Wear surgical shoe or wide sneaker or even sandal to avoid pressure on 5th toe documented in this encounterShelby Memorial Hospital08-30-2022 History of Present illness Narrative* Chacho [...] ([facility]) 03/07/2015 Dr. Hurley ([facility]) Unspecified hemorrhoids without mention of complication [...] (FLONASE) 50 mcg/actuation nasal spray Use 1 [place] in each nostril once daily. (Patientnot taking: [...] SPINE FUSN,POST INTERBODY 2011 Dr. Armando at [facility]. Diskectomy and laminectomy PAST SURGICAL HISTORY OF [...] thickness Chacho Louise DPM Podiatry [address] [facility] [address] Dept: [phone] Dept * Imelda Quijano LPN - 10/18/2021 8:48 AM EDT AMB ROOMING INTAKE FLOWSHEET DATA Pain Pain Level: 4 Pain Location: Toe Description: Sharp, Raw, Sore Duration Amount of Time: 2 Duration Units: Months Frequency: Intermittent Intervention/Comfort measure: Reposition, Relaxation Patient presents with: Right Foot - Established Patient, Follow Up, Pain, Blister Imelda Quijano LPN documented in this encounterShelby Memorial Hospital08-30-2022 Miscellaneous Notes* Telephone Encounter - Muna [...] you. Muna Porter RN documented in this encounterShelby Memorial Hospital08-24-2022 History of Present illness Narrative* RT [...] 12, 2021 10:06 AM documented in this encounterShelby Memorial Hospital08-24-2022 History of Present illness Narrative* Haider [...] 12, 2021 9:56 AM documented in this encounterShelby Memorial Hospital08-11-2022 History of Present illness Narrative* Jimbo Swanson APRN.CNS - 09/29/2021 1:52 PM EDT Continue current Coumadin dose unchanged and check INR in 4 weeks * Melissa Means RN - 09/29/2021 1:20 PM EDT patient had inr completed at [facility] patients inr is 2.0 (patients inr range [...] for follow up INR. documented in this encounterShelby Memorial Hospital08-02-2022 Instructions* Patient Instructions* Jimbo Swanson APRN.CNS - 09/20/2021 1:55 PM EDT Keep your toe clean dry and . Was with soap and water daily, dry thoroughly. Use lambswool between toes. Avoid tight shoes documented in this encounterShelby Memorial Hospital08-02-2022 History of Present illness Narrative* Jimbo [...] and COPD. 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 Histoplasmosis: notes resolved symptoms. OAC: no bleeding difficulties. Occasional bruising. Spiriva and intermittent albuterol has helped with cough. Presents today for foot lesion. She notes she is been wearing tight shoes for a [employer] production at [facility] for about a month. She [...] (FLONASE) 50 mcg/actuation nasal spray Use 1 [place] in each nostril once daily. econazole (SPECTAZOLE) [...] ([facility]) 03/07/2015 Dr. Hurley ([facility]) Unspecified hemorrhoids without mention of complication [...] Abs Lymph 1.00 - 4.00 k/uL 1.64 Wilkes% % 8.0 Abs Wilkes <0.87 k/uL 0.60 Eosin% % 2.7 Abs [...] Level: 3 - Low documented in this encounterShelby Memorial Hospital07-18-2022 Miscellaneous Notes* Letter - Mammography Coordinator - 09/05/2021 10:07 AM EDT September 05, 2021 PID: [id number] Haydee Bustamante [address] [place] [address] Dear Ms. Bustamante, Your recent breast imaging exam on 09/05/2021 showed a possible finding that requires additional imaging studies for a complete evaluation. Most such findings are probably benign (not cancer). If you have a healthcare provider who ordered/prescribed your screening mammogram: Please call [phone] or [phone] to schedule an appointment for your additional [...] and reports are [facility] as part of your permanent medical record, and are available for your continuing care. Thank you for allowing us to help in meeting your health care needs. Sincerely, Dr. Bell Interpreting Radiologist [facility] (Additional imaging) documented in this encounterShelby Memorial Hospital07-18-2022 History of Present illness Narrative* Haider [...] 2021 9:28 AM documented in this encounterCleveland [id number] History of Present illness Narrative* Melissa Means RN - 08/23/2021 4:36 PM EDT per verbal order by operations intelligence superintendent provider dr rowell she agrees with information * Melissa Means RN - 08/23/2021 12:01 PM EDT patient had inr completed at [facility] patients inr is 2.2 (patients inr range [...] for follow up INR. documented in this encounterShelby Memorial Hospital06-24-2022 History of Present illness Narrative* William Messina DO - 08/12/2021 11:31 AM EDT Images from the original note were not included. [facility] SECTION OF [facility]AL CARDIOLOGY [facility] OUTPATIENT VISIT DATE August 12, 2021 PRIMARY CARE PHYSICIAN: Claudine Durán [address] [place] [address] HISTORY OF PRESENT ILLNESS: Ms. Bustamante is a 76 year old female. The patient returns for follow-up due to history of known bicuspid aortic valve stenosis. Previous stenosis has been evaluation as showed this to be mild. Additionalhistory includes hypertension. 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 She is planning on doing [employer] again this summer. She denies chest discomfort, [...] ([facility]) 03/07/2015 Dr. Hurley ([facility]) Unspecified hemorrhoids without mention of complication [...] SPINE FUSN,POST INTERBODY 2011 Dr. Armando at [facility]. Diskectomy and laminectomy PAST SURGICAL HISTORY OF [...] (FLONASE) 50 mcg/actuation nasal spray Use 1 [place] in each nostril once daily. econazole (SPECTAZOLE) [...] Department of Medicine and Division of Cardiology, [facility] Cement Mason Apprenticeart museum aide [facility] Cement Mason Apprentice of Congestive Heart Failure Clinic [facility] Cardiology Office Cement Mason Apprentice [facility] Staff Flyer Maker, [place] and Edilma Pierce Department of Cardiovascular Medicine/Heart and Vascular Marine, [facility] Clinical Heater Operator Profressor of Medicine, [facility] Please note: This note has been produced using speech recognition software and may contain errors related to that system including madelyn, punctuation, spelling, words, gender and phrases that may be inappropriate. documented in this encounterShelby Memorial Hospital06-10-2022 Miscellaneous Notes* Telephone Encounter - Nahomy Mercado - 07/29/2021 2:32 PM EDT Pharmacy faxed requesting the following refill. Pending Prescriptions Disp Refills SYMBICORT 160 MCG-4.5 MCG/ACTUATION HFA AEROSOL INHALER 30.6 g 4 Sig: USE 2 INHALATIONS TWICE A DAY INSTRUCTED YULIANA: Yes Patient last appointment: [address] [place] [address] Andujar Patient Phone numbers: [phone] (home) Request is for script(s) to be escript to pharmacy. Nahomy Mercado documented in this encounterShelby Memorial Hospital06-06-2022 History of Present illness Narrative* Melissa Means RN - 07/25/2021 4:39 PM EDT pcp agrees with information * Melissa Means RN - 07/25/2021 11:43 AM EDT patient had inr completed at [facility] patients inr is 1.8 (patients inr range [...] for follow up INR. documented in this encounterShelby Memorial Hospital05-23-2022 History of Present illness Narrative* Claudine Durán MD - 07/11/2021 8:18 AM EDT This note was created using Skeleton Technologiesriter. Subjective Haydee Bustamante is a 76 year [...] toe surgery for now--has show. 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 Noted fell when missed top [...] factor (HCC) 03/07/2015 Dr. Hurley ([facility]) Unspecified hemorrhoids without mention of complication [...] (FLONASE) 50 mcg/actuation nasal spray Use 1 [place] in each nostril once daily. econazole (SPECTAZOLE) [...] Abs Lymph 1.00 - 4.00 k/uL 1.64 Wilkes% % 8.0 Abs Wilkes <0.87 k/uL 0.60 Eosin% % 2.7 Abs [...] vaccine - ICD9: V04.89, ICD10: Z23 - [employer] COVID-19 VACCINE, AGE 12+ YR (ARIAS TOP) 6. COPD without exacerbation (HCC) - ICD9: 496, ICD10: J44.9 Continue present management. Discussed Dr. Andujar's instructions to use albuterol before activity that causes coughing 7. Bronchiectasis without complication (HCC) - ICD9: 494.0, ICD10: J47.9 As noted above. Fall discussed. Arthritis discussed. Claudine Durán MD documented in this encounterShelby Memorial Hospital05-12-2022 History of Present illness Narrative* Gold [...] venegas name is Katarzyna Malcolm RN your Roll Up Helper from Claudine Durán MD office at the [facility]. I am reaching out today because [...] Bustamante. This is Katarzyna Malcolm RN your Roll Up Helper from the [facility]. I am calling to check in with you concerning the MyChart questionnaire you have been receiving from me. I will call you again tomorrow and am looking forward to speaking with you. (Roll Up Helper enters next day in next patient outreach) Katarzyna Malcolm RN June 29, 2021 3:31 PM documented in this encounterShelby Memorial Hospital04-21-2022 History of Present illness Narrative* Melissa Means RN - 06/09/2021 4:19 PM EDT per operations intelligence superintendent provider dr garza patient is to continue same dose PATIENT NOTIFIED OF INFORMATION * Melissa Means RN - 06/09/2021 10:26 AM EDT patient had inr completed at [facility] patients inr is 1.6 (patients inr range [...] for follow up INR. documented in this encounterShelby Memorial Hospital04-18-2022 Miscellaneous Notes* Telephone Encounter - Sergey [...] pharmacy. Sergey Ramirez Ma documented in this encounterShelby Memorial Hospital04-11-2022 Instructions* Patient Instructions* Mirian Andujar MD [...] I am retiring from the staff of [facility] and the practice of Medicine on [...] and Johanna Mariscal PA-C. documented in this encounterShelby Memorial Hospital04-11-2022 History of Present illness Narrative* Mirian Andujar MD - 2021 3:33 PM EDT [facility] Respiratory Marine, 2021: Name: Haydee Bustamante : 1945 INTERVAL [...] months, sooner if needed. Mirian Andujar MD, [facility] Respiratory Marine [facility] [address] [place] [id number] P: [phone] F: [phone] documented in this encounterShelby Memorial Hospital04-07-2022 History of Present illness Narrative* Melissa Means RN - 05/26/2021 3:21 PM EDT operations intelligence superintendent provider agrees with information * Melissa Means RN - 05/26/2021 10:43 AM EDT patient had inr completed at [facility] patients inr is 1.6 (patients inr range [...] is just slightly low documented in this encounterShelby Memorial Hospital04-01-2022 History of Present illness Narrative* Nara [...] 20, 2021 2:45 PM documented in this encounterShelby Memorial Hospital01-24-2022 History of Present illness Narrative* Claudine Durán MD - 03/14/2021 8:16 AM EST This note was created using S[employer] Technologiesriter. Subjective Haydee Bustamante is a 75 year [...] ([facility]) 03/07/2015 Dr. Hurley ([facility]) Unspecified hemorrhoids without mention of complication [...] (FLONASE) 50 mcg/actuation nasal spray Use 1 [place] in each nostril once daily. potassium chloride [...] good control - Follows with Dr. Messina ([facility] cardiology) - Continue current medication(s) - [...] M05.79 Stable on meds through [facility]--Dr. Hurley Gets labs through his office. Lipid ordered. I spent a total of at least 30 minutes on the date of the service which included [id number] patient care, completing clinical documentation, obtaining and/or reviewing separately obtained history, performing a medically appropriate examination, counseling and educating the patient/family/caregiver and ordering medications, tests, or procedures. Claudine Durán MD documented in this encounterShelby Memorial Hospital01-18-2019 History of Past illness Narrative* Problem [...] of this encounter (statuses as of 05/20/2021) [facility] Narrative* Problem [...] of this encounter (statuses as of 05/22/2021) [facility] Narrative* Problem [...] of this encounter (statuses as of 05/26/2021) [facility] Narrative* Problem [...] of this encounter (statuses as of 06/06/2021) [facility] Narrative* Problem [...] of this encounter (statuses as of 06/09/2021) [facility] Narrative* Problem [...] of this encounter (statuses as of 06/30/2021) [facility] Narrative* Problem [...] of this encounter (statuses as of 07/25/2021) [facility] Narrative* Problem [...] of this encounter (statuses as of 08/01/2021) [facility] Narrative* Problem [...] of this encounter (statuses as of 08/12/2021) [facility] Narrative* Problem [...] of this encounter (statuses as of 08/23/2021) [facility] Narrative* Problem [...] of this encounter (statuses as of 09/06/2021) [facility] Narrative* Problem [...] of this encounter (statuses as of 09/06/2021) [facility] Narrative* Problem [...] of this encounter (statuses as of 09/07/2021) [facility] Narrative* Problem [...] of this encounter (statuses as of 09/20/2021) [facility] Narrative* Problem [...] of this encounter (statuses as of 09/29/2021) [facility] N[facility]ative* Problem [...] of this encounter (statuses as of 10/13/2021) [facility] Narrative* Problem [...] of this encounter (statuses as of 10/13/2021) [facility] Narrative* Problem [...] of this encounter (statuses as of 10/18/2021) [facility] Narrative* Problem [...] of this encounter (statuses as of 10/18/2021) [facility] Narrative* Problem [...] of this encounter (statuses as of 10/19/2021) [facility] N[facility]ative* Problem [...] of this encounter (statuses as of 10/27/2021) [facility] N[facility]ative* Problem [...] of this encounter (statuses as of 11/01/2021) [facility] N[facility]ative* Problem [...] of this encounter (statuses as of 11/08/2021) [facility] N[facility]ative* Problem [...] of this encounter (statuses as of 11/10/2021) [facility] N[facility]* Problem [...] of this encounter (statuses as of 11/10/2021) [facility]* Problem [...] of this encounter (statuses as of 11/29/2021) [facility]* Problem [...] of this encounter (statuses as of 12/04/2021) [facility]* Problem [...] of this encounter (statuses as of 12/22/2021) [facility]* Problem [...] of this encounter (statuses as of 12/27/2021) [facility]* Problem [...] of this encounter (statuses as of 01/05/2022) [facility]* Problem [...] of this encounter (statuses as of 01/11/2022) [facility]* Problem [...] of this encounter (statuses as of 01/17/2022) [facility]* Problem [...] of this encounter (statuses as of 01/17/2022) [facility]* Problem [...] of this encounter (statuses as of 02/02/2022) [facility]* Problem [...] of this encounter (statuses as of 02/22/2022) [facility]* Problem [...] of this encounter (statuses as of 02/24/2022) [facility]* Problem [...] of this encounter (statuses as of 03/14/2022) [facility]* Problem [...] of this encounter (statuses as of 03/30/2022) [facility]* Problem [...] of this encounter (statuses as of 04/06/2022) [facility]* Problem [...] of this encounter (statuses as of 04/21/2022) [facility]* Problem [...] of this encounter (statuses as of 05/04/2022) [facility]* Problem [...] of this encounter (statuses as of 05/24/2022) [facility]* Problem [...] of this encounter (statuses as of 06/01/2022) [facility]* Problem [...] of this encounter (statuses as of 06/29/2022) [facility]* Problem [...] of this encounter (statuses as of 07/24/2022) [facility]* Problem [...] of this encounter (statuses as of 07/24/2022) [facility]* Problem [...] of this encounter (statuses as of 08/13/2022) [facility] illness Narrative* Problem [...] of this encounter (statuses as of 08/15/2022) [facility] History of Past illness Narrative* Problem [...] of this encounter (statuses as of 09/08/2022) [facility] History of Past illness Narrative* Problem [...] of this encounter (statuses as of 09/11/2022) [facility] of Past illness Narrative* Problem [...] of this encounter (statuses as of 09/15/2022) [facility] of Past illness Narrative* Problem [...] of this encounter (statuses as of 09/26/2022) [facility] of Past illness Narrative* Problem [...] of this encounter (statuses as of 10/10/2022) [facility] Past illness Narrative* Problem [...] of this encounter (statuses as of 10/13/2022) [facility] Past illness Narrative* Problem [...] of this encounter (statuses as of 10/27/2022) [facility] Past illness Narrative* Problem [...] of this encounter (statuses as of 10/27/2022) [facility] Narrative* Problem [...] of this encounter (statuses as of 10/31/2022) [facility] illness Narrative* Problem [...] of this encounter (statuses as of 10/31/2022) [facility] illness Narrative* Problem [...] of this encounter (statuses as of 11/02/2022) [facility] illness Narrative* Problem [...] of this encounter (statuses as of 11/10/2022) [facility] Narrative* Problem [...] of this encounter (statuses as of 11/23/2022) [facility] Narrative* Problem [...] of this encounter (statuses as of 12/07/2022) [facility] Narrative* Problem [...] of this encounter (statuses as of 12/07/2022) [facility] Narrative* Problem [...] of this encounter (statuses as of 12/15/2022) [facility] Narrative* Problem [...] of this encounter (statuses as of 12/20/2022) [facility] Narrative* Problem [...] of this encounter (statuses as of 12/24/2022) [facility] Narrative* Problem [...] of this encounter (statuses as of 12/24/2022) [facility] Narrative* Problem [...] of this encounter (statuses as of 01/04/2023) [facility] Narrative* Problem [...] of this encounter (statuses as of 01/05/2023) [facility] Narrative* Problem [...] of this encounter (statuses as of 01/10/2023) [facility] Narrative* Problem [...] of this encounter (statuses as of 01/18/2023) [facility] Narrative* Problem [...] of this encounter (statuses as of 01/24/2023) [facility] Narrative* Problem [...] of this encounter (statuses as of 02/03/2023) [facility] Narrative* Problem [...] of this encounter (statuses as of 02/08/2023) [facility] Narrative* Problem [...] of this encounter (statuses as of 03/24/2023) [facility] Narrative* Problem [...] of this encounter (statuses as of 03/27/2023) [facility] Narrative* Problem [...] of this encounter (statuses as of 04/01/2023) [facility] Narrative* Problem [...] of this encounter (statuses as of 04/03/2023) [facility] Narrative* Problem [...] of this encounter (statuses as of 04/30/2023) [facility]* Chief Complaint BLOOD IN SPUTUM DEBILITY Reason for Visit Colitis Confusion COVID-19 Generalized weakness Histoplasmosis [facility] Work Phone: Discharge summary Author Jasmyn Chan [facility] April 05, 2023 11:35am Note Date/Time April 05, 2023 11:26am [facility] Medical Records Department [address] [facility] [place] [address] Transfer to [facility] MR#: [id number] Acct: [id number] Name: HAYDEE BUSTAMANTE Rep #:[id number] : 1945 77 From: Jasmyn Chan DO PCP: Dr. Claudine Durán MD Status:AD M IN Certification of patient admission REQUIRED AT TIME OF ADMISSION. I CERTIFY THAT POST-HOSPITAL ECF SERVICES ARE REQUIRED TO BE GIVEN ON AN IN-PATIENT BASIS BECAUSE OF THE ABOVE NAMED PATIENT'S NEED FOR FPC CARE ON A CONTINUING BASIS FOR THE [...] Royal; Leobardo Calloway; Jorgito Agarwal; Rosalina Herrera [employer] SALESPERSON Discharge Orders/Prescriptions Prescriptions: New acetaminophen 325 mg [...] Qty: 0 0RF fluticasone propionate 50 mcg/actuation [place],Suspension 1 spray NASAL DAILY Qty: 0 0RF [...] in before D/C Order can be placed): [facility] 04/05/23 3952 <Electronically signed by Jasmyn Chan DO> Cosigner Signature (if applicable): CC: [employer] SALESPERSON-C Rosalina Herrera; Dr. Alisa Mathew MD; Dr. [...] MD; Dr. Leobardo Calloway MD; Dr. Chris Royla MD; Dr. Jorgito Agarwal DO ~ [facility] Work Phone: Discharge summary Author Ron Mariscal [facility] Note Date/Time August 23, 2024 10:29 am [facility] Medical Records Department [address] [place] [address] Emergency Department Summary 08/23/24 MR#: [id number] Acct: [id number] Name: HAYDEE BUSTAMANTE Rep #:[id number] : 1945 79 From: Ron Mariscal MD [...] at any point in time or syncope. [id number]. Lives by herself. 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 She states this morning she laid [...] to if her wrist was not injured [facility] Medical History Hypertension GERD [...] suppl ement 03/19/23 10/01/23 History tablet) vitamins A,C,C-zhmf-lnxkdz 2,148 2 tab PO BID eye heal [...] tabs Instructions: ON HOLD FOR COLONOSCOPY omega 5-qms-kkv-fish oil 1,200 mg 1 cap PO DAILY [...] 82.3 H Lymph % (Auto) 8.1 L Wilkes % (Auto) 8.6 Eos % (Auto) 0.1 [...] distal radius with intra-articular extension. Reading Location: [facility] Brain CT 08/23/24 08:06 IMPRESSION: 1. Generalized brain atrophy. 2. Small vessel ischemic/degenerative changes. 3. No acute intracranial hemorrhage, midline shift or mass effect. If symptoms persist, further evaluation with MRI is recommended. Reading Location: [facility] Management Discussion w/another healthcare provider: Hospitalist and [employer] (ezekiel amanda) Procedures Upper Extremity Splints Upper [...] functional status Disposition Disposition: Acute Care Hospital [facility] What to do if you have Problems For any increased pain, shortness of breath, bleeding, nausea or vomiting, chestpain, or any unexpected problems, contact your Primary Care Provider. Call [facility] ([phone]) or report to the closest Emergency Room. Call 911 if necessary. 08/23/24 1029 <Electronically signed by Ron Mariscal MD> Cosigner Signature (if applicable): CC: Dr. Claudine Durán MD ~ Signed [facility] Work Phone: Discharge summary Author Krissy Hilario [facility] Note Date/Time October 19, 2024 2: 34am [facility] Medical Records Department [address] [place] [address] Emergency Department Summary 10/19/24 MR#: [id number] Acct: [id number] Name: HAYDEE BUSTAMANTE Rep #:[id number] : 1945 79 From: Krissy Hliario MD PCP: Dr. 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 [facility] Medical History Declining functional status Closed head [...] suppl ement 03/19/23 10/01/23 History tablet) vitamins A,C,Y-byxt-lazgvd 2,148 2 tab PO BID eye heal [...] evidence for acute brain abnormality. Reading Location: [place] [address] 10/19/24 00:56 IMPRESSION: Straightened cervical curve denoting myospasm. No acute vertebral fractures, structural collapse or dislocation. 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 Reading Location: [place] [address] Discharge Plan Triage Chief Complaint: Fall ED [...] worsen or new symptoms develop. Print Language: Ethiopian Disposition Disposition: Home, Self Care What to do if you have Problems For any increased pain, shortness of breath, bleeding, nausea or vomiting, chestpain, or any unexpected problems, contact your Primary Care Provider. Call [facility] ([phone]) or report to the closest Emergency Room. Call 911 if necessary. 10/19/24 0234 <Electronically signed by Krissy Hilario MD> Cosigner Signature (if applicable): CC: Dr. Claudine Durán MD ~ Signed [facility] Work Phone: Evaluation note* Diagnosis Screening mammogram, encounter for- Primary [facility] Essential hypertension- Primary Unspecified essential hypertension History of COVID-19 Cough Bronchiectasis without complication (HCC) Bronchiectasis without acute exacerbation Gastroesophageal reflux disease without esophagitis Esophageal reflux Aortic stenosis with bicuspid valve Rheumatoid arthritis involving multiple sites with positive rheumatoid factor (HCC) [facility] Diagnosis Embolism and thrombosis (HCC) Embolism and thrombosis of unspecified site [facility] Diagnosis Moderate COPD (chronic obstructive pulmonary disease) (HCC)- Primary Chronic airway obstruction, not elsewhere classified Bronchiectasis without complication (HCC) Bronchiectasis without acute exacerbation Centrilobular emphysema (HCC) Other emphysema [facility] Diagnosis Cough due to bronchospasm Acute bronchospasm [facility] Diagnosis Embolism and thrombosis (HCC) Embolism and thrombosis of unspecified site [facility] noteNo assessment information availableWCleveland [facility] Work Phone: Evaluation note* Diagnosis Personal history of DVT (deep vein thrombosis)- Primary Personal history of venous thrombosis and embolism [facility] Diagnosis Aortic stenosis with bicuspid valve- Primary Essential hypertension Unspecified essential hypertension [facility] Diagnosis Personal history of DVT (deep vein thrombosis)- Primary Personal history of venous thrombosis and embolism [facility]* Diagnosis Encounter for screening mammogram for breast cancer documented in this encounter [facility] note* Diagnosis Gastroesophageal reflux disease without esophagitis- Primary Esophageal reflux Other viral warts Elevated LDL cholesterol level Pure hypercholesterolemia Essential hypertension Unspecified essential hypertension Need for COVID-19 vaccine COPD without exacerbation (HCC) Bronchiectasis without complication (HCC) Bronchiectasis without acute exacerbation [facility]* Diagnosis Toe infection- Primary Unspecified local infection of skin and subcutaneous tissue Sinobronchitis Unspecified sinusitis (chronic) [facility]* Diagnosis Personal history of DVT (deep vein thrombosis)- Primary Personal history of venous thrombosis and embolism [facility] Diagnosis Abnormal mammogram Abnormal mammogram, unspecified [facility] Diagnosis Ulcer of toe of left foot, limited to breakdown of skin (HCC)- Primary Hammer toe of left foot Onychodystrophy Other specified disease of nail [facility] Diagnosis Embolism and thrombosis (HCC) Embolism and thrombosis of unspecified site [facility] Diagnosis Ulcer of toe of left foot, limited to breakdown of skin (HCC) Hammer toe of left foot [facility] Diagnosis Ulcer of toe of left foot, limited to breakdown of skin (HCC)- Primary Hammer toe of left foot Hallux rigidus of left foot Hallux rigidus [facility] Diagnosis COPD without exacerbation (HCC) Essential hypertension Unspecified essential hypertension [facility] Diagnosis Essential hypertension- Primary Unspecified essential hypertension Chronic obstructive pulmonary disease, unspecified COPD type (HCC) Encounter for immunization Need for other specified prophylactic vaccination against single bacterial disease Gastroesophageal reflux disease without esophagitis Esophageal reflux Bronchiectasis without complication (HCC) Bronchiectasis without acute exacerbation Aortic stenosis with bicuspid valve [facility] Diagnosis Lung nodules- Primary Other [...] thrombosis and embolism [facility] Essential hypertension- Primary Unspecified [...] thrombosis and embolism [facility] Diagnosis Personal history of DVT [...] thrombosis and embolism [facility] Diagnosis Aortic stenosis with bicuspid valve- Primary Essential hypertension Unspecified essential hypertension History of recurrent deep vein thrombosis (DVT) [facility] Diagnosis Rheumatoid arthritis involving multiple sites with positive rheumatoid factor (HCC) Low back pain with right-sided sciatica, unspecified back pain laterality, unspecified chronicity Pseudogout Other disorder of calcium metabolism [facility] Diagnosis shelter current use of anticoagulant therapy- Primary Long-term (current) use of 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 [facility] Diagnosis Essential hypertension- Primary Unspecified [...] with bicuspid valve [facility] Diagnosis Chronic anticoagulation Long-term (current) use of 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 [facility] Diagnosis Chronic anticoagulation Long-term (current) use of 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 [facility] Diagnosis Personal history of DVT (deep vein thrombosis)- Primary Personal history of venous thrombosis and embolism [facility] Diagnosis Embolism and thrombosis (HCC)- Primary Embolism and thrombosis of unspecified site [facility]* Diagnosis DDD (degenerative disc disease), lumbar- Primary Degeneration of lumbar or lumbosacral intervertebral disc Hip pain, acute, left Age-related osteoporosis without current pathological fracture Senile osteoporosis [facility] Diagnosis Embolism and thrombosis (HCC)- Primary Embolism and thrombosis of unspecified site [facility] Diagnosis Rheumatoid arthritis involving multiple sites with positive rheumatoid factor (HCC) Low back pain with right-sided sciatica, unspecified back pain laterality, unspecified chronicity [facility]* Diagnosis Lung nodules Other nonspecific abnormal finding of lung field [facility]* Diagnosis Encounter for screening mammogram for breast cancer [facility]* Diagnosis Encounter for immunization- Primary Need for other specified prophylactic vaccination against single bacterial disease documented in this encounter [facility] note* Diagnosis Embolism and thrombosis (HCC)- Primary Embolism and thrombosis of unspecified site documented in this encounter [facility] note* Diagnosis Personal history of DVT (deep vein thrombosis)- Primary Personal history of venous thrombosis and embolism documented in this encounter [facility] note* Diagnosis Acute cough- Primary [facility]* Diagnosis Onset Date Resolution Status Colitis acute Confusion acute COVID-19 acute Generalized weakness acute Histoplasmosis acute [facility] Work Phone: Evaluation note* Diagnosis Onset Date Resolution Status Confusion acute COVID-19 acute Generalized weakness acute Histoplasmosis acute [facility] Work Phone: Evaluation note* Diagnosis Onset Date Resolution Status Confusion acute COVID-19 acute Generalized weakness acute Histoplasmosis acute Adult failure to thrive acut e Cellulitis acute Generalized weakness acute History of DVT (deep vein thrombosis) acute Leg edema acute Rheumatoid arthritis acute Weakness acute [facility] Work Phone: Evaluation note* Diagnosis Hypoalbuminemia- Primary Other disorders of plasma protein metabolism Elevated alkaline phosphatase level Other nonspecific abnormal serum enzyme levels Elevated LFTs Other abnormal blood chemistry Anemia, unspecified type Leukocytosis, unspecified type documented in this encounter [facility] note* Diagnosis Onset Date Resolution Status Adult failure to thrive acut e Cellulitis acute History of DVT (deep vein thrombosis) acute Leg edema acute Rheumatoid arthritis acute Thrombocytopenia acute Weakness acute Anemia chronic [facility] Work Phone: Evaluation note* Diagnosis Onset [...] acute COPD (chronic obstructive pulmonary disease) chronic [facility] Work Phone: Evaluation note* Diagnosis Onset [...] resolved Edema resolved Failure to thrive resolved [facility] Work Phone: Evaluation note* Diagnosis Rheumatoid arthritis involving multiple sites with positive rheumatoid factor (HCC) Low back pain with right-sided sciatica, unspecified back pain laterality, unspecified chronicity [facility]* Diagnosis Rheumatoid arthritis involving multiple sites with positive rheumatoid factor (HCC) Low back pain with right-sided sciatica, unspecified back pain laterality, unspecified chronicity Pseudogout Other disorder of calcium metabolism documented in this encounter [facility] note* Diagnosis Personal history of DVT (deep vein thrombosis)- Primary Personal history of venous thrombosis and embolism documented in this encounter [facility] note* Diagnosis Acute pain of right knee- Primary Chronic anticoagulation Long-term (current) use of 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 Hip pain, acute, left Pain and swelling of right lower leg [facility]* Diagnosis Personal history of DVT (deep vein thrombosis)- Primary Personal history of venous thrombosis and embolism [facility]* Diagnosis Anemia, unspecified type- Primary Elevated LFTs Other abnormal blood chemistry COPD without exacerbation (HCC) Essential hypertension Unspecified essential hypertension Cough due to bronchospasm Acute bronchospasm Chronic anticoagulation Long-term (current) use of 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 Encounter for long-term current use of medication Gastric ulcer with hemorrhage, unspecified chronicity [facility] Diagnosis Right knee pain, unspecified chronicity- Primary [facility] Diagnosis shelter current use of anticoagulant therapy- Primary Long-term (current) use of 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 [facility]* Diagnosis COPD without exacerbation (HCC) documented [facility]* Diagnosis COPD without exacerbation (HCC) [facility]* Diagnosis Rheumatoid arthritis involving multiple sites with positive rheumatoid factor (HCC)- Primary Edema, unspecified type Encounter for therapeutic drug monitoring documented in this encounter [facility] note* Diagnosis Personal history of DVT (deep vein thrombosis)- Primary Personal history of venous thrombosis and embolism [facility] Diagnosis Rheumatoid arthritis involving multiple sites with positive rheumatoid factor (HCC)- Primary Pain and swelling of right knee [facility]* Diagnosis Nonrheumatic aortic valve stenosis- Primary Aortic valve disorders Mitral valve stenosis, non-rheumatic Mitral valve disorders Essential hypertension Unspecified essential hypertension Pericardial effusion (noninflammatory) Leg edema Edema shelter current use of anticoagulant therapy Long-term (current) use of 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 [facility] Diagnosis Personal history of DVT (deep vein thrombosis)- Primary Personal history of venous thrombosis and embolism [facility]* Diagnosis Disseminated histoplasmosis Histoplasmosis, unspecified without mention of manifestation [facility]* Diagnosis COPD without exacerbation (HCC) [facility]* Diagnosis Disseminated histoplasmosis- Primary Histoplasmosis, unspecified [...] of digestive system [facility]* Diagnosis Edema, unspecified type- Primary [facility]* Diagnosis Personal history of DVT (deep vein thrombosis)- Primary Personal history of venous thrombosis and embolism [facility] Diagnosis Anemia, unspecified type- Primary Bilateral lower extremity edema Edema Chronic anticoagulation Long-term (current) use of 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 Moderate to severe aortic stenosis Aortic valve disorders Disseminated histoplasmosis Histoplasmosis, unspecified without mention of manifestation Nodule of lower lobe of left lung Encounter for long-term current use of medication [facility] Diagnosis Edema, unspecified type [facility] Diagnosis Personal history of DVT (deep vein thrombosis)- Primary Personal history of venous thrombosis and embolism [facility] Diagnosis Rheumatoid arthritis involving multiple sites with positive rheumatoid factor (HCC) Low back pain with right-sided sciatica, unspecified back pain laterality, unspecified chronicity [facility] Diagnosis Disseminated histoplasmosis Histoplasmosis, unspecified without mention of manifestation [facility] Diagnosis Aortic valve stenosis, etiology of cardiac valve disease unspecified- Primary Mitral valve stenosis, unspecified etiology Pericardial effusion Unspecified disease of pericardium Gastrointestinal hemorrhage, unspecified gastrointestinal hemorrhage type Rheumatoid arthritis with positive rheumatoid factor, involving unspecified site (HCC) Edema, unspecified type Blood loss anemia Iron deficiency anemia secondary to blood loss (chronic) [facility] Diagnosis Aortic stenosis with bicuspid valve- Primary Pericardial effusion Unspecified disease of pericardium Essential hypertension Unspecified essential hypertension Chronic heart failure with preserved ejection fraction (HFpEF) (HCC) Mitral valve stenosis, non-rheumatic Mitral valve disorders Nonrheumatic tricuspid valve regurgitation Tricuspid valve disorders, specified as nonrheumatic [facility] Diagnosis Personal history of DVT (deep vein thrombosis)- Primary Personal history of venous thrombosis and embolism [facility] Diagnosis Chronic anticoagulation Long-term (current) use of 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 [facility] Diagnosis Personal history of DVT (deep vein thrombosis)- Primary Personal history of venous thrombosis and embolism [facility] Diagnosis Acute cough [facility] Diagnosis Disseminated histoplasmosis Histoplasmosis, unspecified without mention of manifestation [facility] Diagnosis Personal history of DVT (deep vein thrombosis)- Primary Personal history of venous thrombosis and embolism [facility] Diagnosis Personal history of DVT (deep vein thrombosis)- Primary Personal history of venous thrombosis and embolism [facility] Diagnosis COPD without exacerbation (HCC) documented [facility] Diagnosis Disseminated histoplasmosis- Primary Histoplasmosis, unspecified [...] Aortic valve disorders [facility] Diagnosis Rheumatoid arthritis with positive rheumatoid factor, involving unspecified site (HCC)- Primary Nonrheumatic aortic valve stenosis Aortic valve disorders Nonrheumatic mitral valve stenosis Pericardial effusion Unspecified disease of pericardium Histoplasmosis Histoplasmosis, unspecified without mention of manifestation [facility] Diagnosis Personal history of DVT (deep vein thrombosis)- Primary Personal history of venous thrombosis and embolism [facility] Diagnosis Disseminated histoplasmosis Histoplasmosis, unspecified without mention of manifestation Nonrheumatic aortic valve stenosis Aortic valve disorders [facility] Diagnosis Chronic heart failure with preserved [...] Aortic valve disorders [facility] Diagnosis Personal history of DVT (deep vein thrombosis)- Primary Personal history of venous thrombosis and embolism Nonrheumatic aortic valve stenosis Aortic valve disorders [facility] Diagnosis Nonrheumatic aortic valve stenosis- Primary Aortic valve disorders Encounter to establish care Other reasons for seeking consultation Pre-operative cardiovascular examination Mitral stenosis with insufficiency, rheumatic Mitral stenosis with insufficiency Rheumatoid arthritis with positive rheumatoid factor, involving unspecified site (HCC) Nonrheumatic aortic valve stenosis Aortic valve disorders [facility] Diagnosis Nonrheumatic aortic valve stenosis Aortic valve disorders Nonrheumatic aortic valve stenosis Aortic valve disorders [facility] Diagnosis Nonrheumatic aortic valve stenosis Aortic valve disorders Encounter for preprocedural cardiovascular examination Pre-operative cardiovascular examination Nonrheumatic aortic valve stenosis Aortic valve disorders [facility] Diagnosis Nonrheumatic aortic valve stenosis- Primary Aortic valve disorders [facility] Diagnosis Nonrheumatic aortic valve stenosis- Primary Aortic valve disorders documented in this encounter [facility] note* Diagnosis Nonrheumatic aortic valve stenosis- Primary Aortic valve disorders documented in this encounter [facility] note* Diagnosis Nonrheumatic aortic valve stenosis Aortic valve disorders documented in this encounter [facility] note* Diagnosis Nonrheumatic aortic valve stenosis- Primary Aortic valve disorders documented in this encounter [facility] note* Diagnosis Nonrheumatic aortic valve stenosis- Primary Aortic valve disorders documented in this encounter [facility] note* Diagnosis Personal history of DVT (deep vein thrombosis)- Primary Personal history of venous thrombosis and embolism documented in this encounter [facility] note* Diagnosis Nonrheumatic aortic valve stenosis- Primary Aortic valve disorders Aortic valve stenosis, etiology of cardiac valve disease unspecified documented in this encounter [facility] note* Diagnosis Nonrheumatic aortic valve stenosis- Primary Aortic valve disorders Aortic valve disorder Aortic valve disorders Aortic valve stenosis, etiology of cardiac valve disease unspecified documented in this encounter [facility] note* Diagnosis Encounter for preoperative anesthesiology assessment for cardiac surgery- Primary Aortic valve stenosis, etiology of cardiac valve disease unspecified documented in this encounter [facility] note* Diagnosis Nonrheumatic aortic valve stenosis- Primary Aortic valve disorders Aortic valve stenosis, etiology of cardiac valve disease unspecified documented in this encounter [facility] note* Diagnosis Nonrheumatic aortic valve stenosis Aortic valve disorders Aortic valve disorder Aortic valve disorders Aortic valve stenosis, etiology of cardiac valve disease unspecified documented in this encounter [facility] note* Diagnosis Personal history of DVT (deep vein thrombosis)- Primary Personal history of venous thrombosis and embolism Aortic valve stenosis, etiology of cardiac valve disease unspecified documented in this encounter [facility] note* Diagnosis Nonrheumatic aortic valve stenosis- Primary Aortic valve disorders [facility] Diagnosis Nonrheumatic aortic valve stenosis- Primary Aortic valve disorders S/P TAVR (transcatheter aortic valve replacement) Heart valve replaced by other means Chronic diastolic heart failure (HCC) Chronic diastolic heart failure [facility]* Diagnosis Disseminated histoplasmosis- Primary Histoplasmosis, unspecified [...] of respiratory system [facility] Diagnosis S/P TAVR (transcatheter aortic [...] of respiratory system [facility] Diagnosis Personal history of DVT (deep vein thrombosis)- Primary Personal history of venous thrombosis and embolism [facility]* Diagnosis Herpes zoster without complication- Primary Herpes zoster without mention of complication Skin tear of left upper arm without complication, initial encounter Contusion of right thumb without damage to nail, subsequent encounter Chronic anticoagulation Long-term (current) use of 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 Closed fracture of left wrist, sequela Contusion of right upper extremity, subsequent encounter [facility] Author aLine Veras [facility] March 26, 2023 4:04pm Note Date/Time March 26, 2023 4 :05pm [facility] Medical Records Department [address] [place] [address] H&P Exam - Hospitalist 03/26/23 1551 MR#: [id number] Acct: [id number] Name: HAYDEE BUSTAMANTE Rep #:[id number] : 1945 77 From: Laine Veras MD PCP: Dr. Claudine Durán MD Status:AD M ADAIR Location: [facility] SC589-2 [facility] Date of Admission: 03/26/23 Date of Service: 03/26/23 Chief Complaint: Confusion, shortness of breath HPI Narrative HAYDEE BUSTAMANTE, is a 77-year-old female history of hypertension, GERD, RA, PE, severe aortic stenosis and moderate pericardial effusion, histoplasmosis presented to [facility] ED 03/26/2023 with shortness of breath andinability to care for self at home. Recently seen 03/21/2023 in [place] ED and transferred to [facility] due to concern for bowel [...] outpatient basis. She was just discharged from [place] yesterday and today legs are weeping and she is urinating on herself. She was discharged home on Cipro and Flagyl and itraconazole twice daily as well as 4 more days of dexamethasone and given Imodium for diarrhea. She was instructed to hold her hydrochlorothiazide and irbesartan due to kidney function. In [facility] ED patient 96% on room air with [...] reports that she got home yesterday from [facility] and was talking about the [...] Q24H 03/19/23 [History Last Taken Unknown] vitamins A,C,Y-botd-wtpaqy 2,148 mcg-113 mg-45 mg-17.4 mg tablet (PreserVision [...] 80.3 H, Lymph % (Auto) 6.3 L, Wilkes % (Auto) 9.6, Eos % (Auto) 0.0, [...] #Hx and mod pericardial effusion -Seen at [facility] and pt advised to f/u outpt -Will [...] Veras MD Charges/Coding Visit Charges Inpatient E&M: 36692 Init Hosp L2 03/26/23 1604 <Electronically signed by Laine Veras MD> Cosigner Signature (if applicable): CC: Dr. Claudine Durán MD; Dr. Laine Veras MD~ Signed [facility] Work Phone: History and physical note Author Laine Veras [facility] March 31, 2023 8:59pm Note Date/Time March 31, 2023 8:20pm [facility] Medical Records Department [address] [place] [address] H&P Exam - Hospitalist 03/31/232011 MR#: [id number] Acct: [id number] Name: HAYDEE BUSTAMANTE Rep #:[id number] : 1945 77 From: Laine Veras MD PCP: Dr. Claudine Durán MD Status:AD M IN Location: [facility] [id number] HPI - General General Date of Admission: 03/31/23 Date of Service: 03/31/23 Chief Complaint: BLE edema and weeping HPI Narrative HAYDEE BUSTAMANTE, is a 77-year-old female history of COPD, Severe . GERD. DVT and PEon Coumadin, histoplasmosis of the lung, RA who presented to [facility] ED 03/31/2023 with bilateral lower extremity edema. She was seen here 03/28/2023 with lower extremity edema. She was initially seen here 03/26/2023 for shortness of breath and inability to care for herself at home after a recent hospital stay at [facility] from which she was discharged on [...] Q24H 03/19/23 [History Last Taken Unknown] vitamins A,C,Q-ytoo-hyljhn 2,148 mcg-113 mg-45 mg-17.4 mg tablet (PreserVision [...] 90.8 H, Lymph % (Auto) 3.0 L, Wilkes % (Auto) 5.0, Eos % (Auto) 0.1, [...] 19:30 EST Reading Location ID and State: [employer] Tel , Service support , Chest X-Ray 03/31/23 18:32 IMPRESSION: No change from prior study. Electronically Signed: Michael Galarza MD at 19:29 EST Reading Location ID and State: [employer] Tel , Service support , Assessment & [...] for bowel perf treated conservatively -Treated at [facility] -s/p cipro and flagyl, no present abd complaints # Disseminated histoplasmosis -Continue itraconazole twice daily -Patient to follow-up with a Dr. Hart in 3 months # Recent COVID-19 -Tested positive here end of February -No resp complaints #Hx COPD -Continue inhalers #Hx and mod pericardial effusion -Seen at [facility] and pt advised to f/u outpt -Will [...] documentation, 78Minutes Charges/Coding Visit Charges Inpatient E&M: 44530 Init Hosp L3 03/31/232058 <Electronically signed by Laine Veras MD> Cosigner Signature (if applicable): CC: Dr. Claudine Durán MD; Dr. Laine Veras MD~ Signed [facility] Work Phone: History and physical note Author Erasmo House [facility] Note Date/Time August 23, 2024 11:12 am [facility] Medical Records Department [address] [place] [address] H&P Exam - Hospitalist 08/23/24 1023 MR#: [id number] Acct: [id number] Name: HAYDEE BUSTAMANTE Rep #:[id number] : 1945 79 From: Erasmo Castañeda PCP: Dr. Claudine Durán MD Status:LUKE BORRERO Location: WA3 [id number] HPI - General General Date of Admission: [...] suppl ement 03/19/23 10/01/23 History tablet) vitamins A,C,S-awdh-jzerrh 2,148 2 tab PO BID eye heal [...] Rx (Voltaren Arthritis Pain) #100 grams omega 5-iig-vxl-fish oil 1,200 mg 1 cap PO DAILY [...] Std Deviation 58.6 H, RDW Coeff of Catarion 17.0 H, Plt Count 182, MPV 10.9, Immature Gran % (Auto) 0.500, Neut % (Auto) 82.3 H, Lymph % (Auto) 8.1L, Wilkes % (Auto) 8.6, Eos % (Auto) 0.1, [...] distal radius with intra-articular extension. Reading Location: [facility] Brain CT 08/23/24 08:06 IMPRESSION: 1. Generalized brain atrophy. 2. Small vessel ischemic/degenerative changes. 3. No acute intracranial hemorrhage, midline shift or mass effect. If symptoms persist, further evaluation with MRI is recommended. Reading Location: [facility] Assessment & Plan Assessment/Plan (1) Closed fracture of distal end of left radius: (2) Closed head injury without concussion: PLAN: Plan This 72-year-old female was brought to ED when she fell down, mechanism unclear resulting into left wrist fracture. 1. Acute debility of ADL due to closed fracture of distal end of left radius/Colles' fracture: [facility] views ofx-ray left wrist [...] shock if needed Total time spent in cxkx-jh-xuka encounter in discussion of advanced directive 17 minutes. Laboratory Results 08/23/24 07:45: WBC 7.9, RBC 3.52 L, Hgb 11.3 L, Hct 33.9 L, MCV 96.3, MCH 32.1 H, MCHC 33.3, RDW Std Deviation 58.6 H, RDW Coeff of Catarino 17.0 H, Plt Count 182, MPV 10.9, Immature Gran % (Auto) 0.500, Neut % (Auto) 82.3 H, Lymph % (Auto) 8.1L, Wilkes % (Auto) 8.6, Eos % (Auto) 0.1, [...] distal radius with intra-articular extension. Reading Location: [facility] Brain CT 08/23/24 08:06 IMPRESSION: 1. Generalized brain atrophy. 2. Small vessel ischemic/degenerative changes. 3. No acute intracranial hemorrhage, midline shift or mass effect. If symptoms persist, further evaluation with MRI is recommended. Reading Location: [facility] Charges/Coding Visit Charges Inpatient E&M: 43758 Init Hosp L3 Procedures Hospitalists Procedures: 04631 Advncd Care Plan 30 Min 08/23/24 1112 <Electronically signed by Erasmo House MD> Cosigner Signature (if applicable): CC: Dr. Claudine Durán MD; Dr. Erasmo House MD~ Signed [facility] Work Phone: Hospital Discharge instructions Additional [...] higher or systolic number then stop the medication.[facility] Work Phone: Hospital Discharge instructionsAdditional Instructions [...] if your symptoms worsen or new symptoms develop.[facility] Work Phone: Reason for referral (narrative)* Outpatient Procedure (Routine) - Authorized Specialty Diagnoses / Procedures Referred By Contac t [facility] Diagnoses Aortic stenosis with bicuspid valve Essential hypertension Procedures ECHO ECHO TTHRC R-T 2D W/WOM-MODE COMPL SPEC&COLR D SiddharthWilliam, [address] [place] [address] [address] Referral ID Status Reason Start Date Expiration Date Visits Requested Visits Authorized [id number] Authorized Auto-Generat ed Referral 08/12/2021 08/12/2022 1 1 * Outpatient Procedure (Routine) - Closed Specialty Diagnoses / Procedures Referred By Divya t Referred To Contact [facility] Diagnoses Aortic stenosis with bicuspid valve Essential hypertension Procedures ECG COMPLETE ECG ROUTINE ECG W/LEAST 12 LDS W/I&R SiddharthWilliam [address] [place] [address] [place] [id number] Referral ID Status Reason Start Date Expiration Date V isits Requested Visits Authorized [id number] Closed Auto-Generate d Referral 08/12/2021 08/12/2022 1 1 [facility] for referral (narrative)* Diagnostic Procedure Only (Routine) - Closed Specialty Diagnoses / Procedures Referred By Divya t Referred To Contact [facility] Diagnoses Ulcer of toe of left foot, limited to breakdown of skin (HCC) Hammer toe of left foot Procedures XR FOOT GENERAL 3V AP/LAT/OBL LEFT RADEX FOOT COMPLETE MINIMUM 3 VIEWS Chacho Louise [address] [place] [address] X[facility] Imaging Referral ID Status Reason Start Date Expiration Date V isits Requested Visits Authorized [id number] Closed Auto-Generate d Referral 10/18/2021 11/17/2022 1 1 [facility] for referral (narrative)* Diagnostic Procedure Only (Routine) - Closed Specialty Diagnoses / Procedures [facility] Referred To Contact [facility] Diagnoses Ulcer of toe of left foot, limited to breakdown of skin (HCC) Hammer toe of left foot Procedures XR FOOT GENERAL 3V AP/LAT/OBL LEFT RADEX FOOT COMPLETE MINIMUM 3 VIEWS Chacho Louise [address] [place] [address] Xr Imaging Referral ID Status Reason Start Date Expiration Date V isits Requested Visits Authorized [id number] Closed Auto-Generate d Referral 10/18/2021 11/17/2022 1 1 [facility] for referral (narrative)* Outpatient Procedure (Routine) - Authorized Specialty Diagnoses / Procedures [facility] Diagnoses Aortic stenosis with bicuspid valve Procedures ECHO ECHO TTHRC R-T 2D W/WOM-MODE COMPL SPEC&COLR D Rachelle Schulte DIGITAL COMMUNICATIONS MANAGER.COAT OPERATOR INSULATOR [address] [address] [facility] [address] [place] [address] Referral ID Status Reason Start Date Expiration Date Visits Requested Visits Authorized [id number] Authorized Auto-Generat ed Referral 08/29/2022 08/29/2023 1 1 [facility] for referral (narrative)* Diagnostic Procedure Only (Routine) - Authorized Specialty Diagnoses / Procedures [facility] Referred To Contact [facility] Diagnoses Encounter for screening mammogram for breast cancer Procedures SABINO SCREENING W ALIZE SCREENING DIGITAL BREAST TOMOSYNTHESIS BI SCREENING MAMMOGRAPHY BI 2-VIEW BREAST INC Jimbo Egan, DIGITAL COMMUNICATIONS MANAGER.AMUSEMENT RIDE OPERATOR [address] [place] [address] [facility] [address] [place] [address] Referral ID Status Reason Start Date Expiration Date Visits Requested Visits Authorized [id number] Authorized Auto-Generat ed Referral 10/27/2022 11/26/2023 1 1 * Diagnostic Procedure Only (Routine) - Pending Review Specialty Diagnoses / Procedures Referred By Divya reis Referred To Contact [facility] Diagnoses Encounter for screening mammogram for breast cancer Procedures SABINO SCREENING SCREENING MAMMOGRAPHY BI 2-VIEW BREAST INC CAD Jimbo Swanson APRN.AMUSEMENT RIDE OPERATOR [address] [place] [address] [facility] [address] [place] [address] Referral ID Status Reason Start Date Expiration Date Visits Requested Visits Authorized [id number] Pending Review Auto-Generat ed Referral 10/27/2022 11/26/2023 1 1 [facility] for referral (narrative)* Diagnostic Procedure Only (Routine) - Closed Specialty Diagnoses / Procedures Referred By Divya reis Referred To Contact [facility] Diagnoses Encounter for screening mammogram for breast cancer Procedures SABINO SCREENING W ALIZE SCREENING DIGITAL BREAST TOMOSYNTHESIS BI SCREENING MAMMOGRAPHY BI 2-VIEW BREAST INC [facility] Jimbo Swanson APRN.AMUSEMENT RIDE OPERATOR [address] [place] [address] [facility] [address] [place] [address] Referral ID Status Reason Start Date Expiration Date V isits Requested Visits Authorized [id number] Closed Auto-Generate d Referral 10/27/2022 11/26/2023 1 1 [facility] for referral (narrative)* Outpatient Procedure (Urgent) - Authorized Specialty Diagnoses / Procedures Referred By Divya reis Referred [facility] Diagnoses Acute pain of right knee Pain and swelling of right lower leg Procedures US LEG VEIN DVT UNL VAS LAB DUP-SCAN XTR VEINS UNILATERAL/LIMITED STUDY Jimbo Swanson APRN.AMUSEMENT RIDE OPERATOR [address] [place] [address] [facility] [address] [place] [address] Referral ID Status Reason Start Date Expiration Date Visits Requested Visits Authorized [id number] Authorized Auto-Generat ed Referral 07/10/2023 07/09/2024 1 1 [facility] for referral (narrative)* Diagnostic Procedure Only (Routine) - Pending Review Specialty Diagnoses / Procedures Referred By Contac t Referred To Contact XR IMAGING Diagnoses Right knee pain, unspecified chronicity Procedures XR LEG FRONTAL HIP TO ANKLE MECHANICAL AXIS BONE LENGTH STUDIES London Short PA-C [address] [place] [address] [place] [address] Referral ID Status Reason Start Date Expiration Date Visits Requested Visits Authorized [id number] Pending Review Auto-Generat ed Referral 07/18/2023 08/15/2024 1 1 * Diagnostic Procedure Only (Routine) - Pending Review Specialty Diagnoses / Procedures Referred By Contac t Referred To Contact [facility] IM[facility] Diagnoses Right knee pain, unspecified chronicity Procedures XR KNEE GENERAL 4V AP BOTH/PA BOTH/LAT/MERC RIGHT RADIOLOGIC EXAM KNEE COMPLETE 4/MORE VIEWS London Short PA-C [address] [place] [address] [place] [address] Referral ID Status Reason Start Date Expiration Date Visits Requested Visits Authorized [id number] Pending Review Auto-Generat ed Referral 07/18/2023 08/15/2024 1 1 [facility] for referral (narrative)* Outpatient Procedure (Routine) - Pending Review Specialty Diagnoses / Procedures Referred By Contac t Referred [facility] Diagnoses Nonrheumatic aortic valve stenosis Mitral valve stenosis, non-rheumatic Essential hypertension Pericardial effusion (noninflammatory) Procedures ECHO LIMITED ECHO TRANSTHORAC R-T 2D W/WO M-MODE REC COMP William Messina DO [address] [place] [address] [address] Referral ID Status Reason Start Date Expiration Date Visits Requested Visits Authorized [id number] Pending Review Auto-Generat ed Referral 08/27/2023 08/26/2024 1 1 [facility] for referral (narrative)* Outpatient Procedure (Routine) - Authorized Specialty Diagnoses / Procedures Referred By Contac t Referred To [facility] Diagnoses Pericardial effusion Procedures ECHO LIMITED ECHO TRANSTHORAC R-T 2D W/WO M-MODE REC COMP Bibi Alegria DIGITAL COMMUNICATIONS MANAGER.COAT OPERATOR INSULATOR [address] [place] [address] [address] Referral ID Status Reason Start Date Expiration Date Visits Requested Visits Authorized [id number] Authorized Auto-Generat ed Referral 10/17/2024 1 1 [facility] for referral (narrative)* Outpatient Procedure (Routine) - New Request Specialty Diagnoses / Procedures Referred By Contac t Referred To [facility] Diagnoses Nonrheumatic aortic valve stenosis Aortic valve disorder Procedures ECG COMPLETE ECG ROUTINE ECG W/LEAST 12 LDS W/I&R Monica Aguila APRN.COAT OPERATOR INSULATOR [address] [place] [address] [facility] [address] [place] [address] Referral ID Status Reason Start Date Expiration Date Visits Requested Visits Authorized [id number] New Request Auto-Generat ed Referral 4 01/07/2025 1 1 * Outpatient Procedure (Routine) - New Request Specialty Diagnoses / Procedures Referred By Contac t Referred To Contact [facility] Diagnoses Nonrheumatic aortic valve stenosis Aortic valve disorder Procedures ECHO ECHO TTHRC R-T 2D W/WOM-MODE COMPL SPEC&COLR D Monica Aguila APRN.COAT OPERATOR INSULATOR [address] [place] [address] [facility] [address] [place] [address] Referral ID Status Reason Start Date Expiration Date Visits Requested Visits Authorized [id number] New Request Auto-Generat ed Referral 4 01/07/2025 1 1 * Diagnostic Procedure Only (Routine) - New Request Specialty Diagnoses / Procedures Referred By Divya reis Referred To Contact [facility] Diagnoses Nonrheumatic aortic valve stenosis Procedures NM SPECT/CT CARDIAC AMYLOID RP LOCLZJ MARY SPECT W/CT 1 AREA 1 DAY IMAGING Monica Aguila APRN.COAT OPERATOR INSULATOR [address] [place] [id number] [facility] [address] [place] [address] Referral ID Status Reason Start Date Expiration Date Visits Requested Visits Authorized [id number] New Request Auto-Generat ed Referral 4 02/06/2025 1 1 * MRI/CT (Routine) - New Request Specialty Diagnoses / Procedures Referred By Divya reis Referred To Contact CT IMAGING Diagnoses Nonrheumatic aortic valve stenosis Encounter for preprocedural cardiovascular examination Procedures CTA CHEST/ABD/PEL (GATED) W IVCON CT ANGIOGRAPHY CHEST W/CONTRAST/NONCONTRAST CT ANGIO ABD&PLVIS CNTRST MTRL W/WO CNTRST Monica Zavala APRN.COAT OPERATOR INSULATOR [address] [place] [address] Ct Imaging [facility]95 Referral ID Status Reason Start Date Expiration Date Visits Requested Visits Authorized [id number] New Request Auto-Generat ed Referral 4 02/06/2025 1 1 * Outpatient Procedure (Routine) - New Request Specialty Diagnoses / Procedures Referred By Divya reis [facility] Diagnoses Nonrheumatic aortic valve stenosis Procedures LUNG DIFFUSION CAPACITY (DLCO) DIFFUSING CAPACITY Monica Aguila APRN.CNP [address] [place] [address] [place] [address] Referral ID Status Reason Start Date Expiration Date Visits Requested Visits Authorized [id number] New Request Auto-Generat ed Referral 4 02/06/2025 1 1 * Outpatient Procedure (Routine) - New Request Specialty Diagnoses / Procedures Referred By Divya reis Referred [facility] Diagnoses Nonrheumatic aortic valve stenosis Procedures SPIROMETRY BASELINE ONLY SPMTRY W/VC EXPIRATORY [place] W/WO MXML VOL VNTJ Monica Aguila APRN.CNP [address] [place] [address] [place] [address] Referral ID Status Reason Start Date Expiration Date Visits Requested Visits Authorized [id number] New Request Auto-Generat ed Referral 4 02/06/2025 1 1 [facility] for referral (narrative)* Diagnostic Procedure Only (Routine) - Closed Specialty Diagnoses / Procedures Referred By Divya reis Referred To Contact [facility]AG[facility] Diagnoses Nonrheumatic aortic valve stenosis Procedures NM SPECT/CT CARDIAC AMYLOID RP LOCLZJ MARY SPECT W/CT 1 AREA 1 DAY IMAGING Monica Aguila APRN.COAT OPERATOR INSULATOR [address] [id number] [facility] [address] [place] [id number] Referral ID Status Reason Start Date Expiration Date V isits Requested Visits Authorized [id number] Closed Auto-Generate d Referral 01/08/2024 02/06/[address] [facility] for referral (narrative)* Transition of Care (Routine) - Authorized Specialty Diagnoses / Procedures Referred By Contac t Referred To [facility] Procedures CARDIOVASCULAR MEDICINE OP FOLLOW UP APPT ORDER Monica Aguila APRN.CNP [address] [place] [address] Phone: tel: fax: [facility] [place] [phone] Referral ID Status Reason Start Date Expiration Date Visits Requested Visits Authorized [id number] Authorized PCP Requested Referral 04/30/2024 04/30/2025 1 1 [facility] for referral (narrative)* Transition of Care (Routine) - Authorized Specialty Diagnoses / Procedures Referred By Contac t Referred To Contact [facility] Procedures CARDIOVASCULAR MEDICINE OP [place] [address] [place] [address] Phone: tel: [facility] [place] [phone] Referral ID Status Reason Start Date Expiration Date Visits Requested Visits Authorized [id number] Authorized PCP Requested Referral 05/05/2024 05/05/2025 1 1 T [facility] for referral (narrative)No reason for referral information [facility]WC[facility] Phone: [facility] (narrative)* Transition of Care (Routine) - Authorized Specialty Diagnoses / Procedures Referred By Contac t Referred To Contact [facility] Procedures CARDIOVASCULAR MEDICINE OP FOLLOW UP APPT ORDER Brissa Chester, CONNIE.COAT OPERATOR INSULATOR [address] [place] [address] Phone: tel: fax: [facility] [address] [place] [address] Referral ID Status Reason Start Date Expiration Date Visits Requested Visits Authorized [id number] Authorized PCP Requested Referral 07/22/2024 07/22/2025 1 1 [facility] for visit Narrative* Diagnostic Procedure Only (Routine) - Closed Specialty Diagnoses / Procedures Referred By Divya t Referred To Contact XR IMAGING Diagnoses Ulcer of toe of left foot, limited to breakdown of skin (HCC) Hammer toe of left foot Procedures XR FOOT GENERAL 3V AP/LAT/OBL LEFT RADEX FOOT COMPLETE MINIMUM 3 VIEWS [address]acho [address] [place] [address] Xr Imaging Referral ID Status Reason Start Date Expiration Date V isits Requested Visits Authorized [id number] Closed Auto-Generate d Referral 10/18/2021 11/17/2022 1 1 [facility] for visit Narrative* Diagnostic Procedure Only (Routine) - Closed Specialty Diagnoses / Procedures Referred By Divya t Referred To Contact BR [facility] Diagnoses Encounter for screening mammogram for breast cancer Procedures SABINO SCREENING W ALIZE SCREENING DIGITAL BREAST TOMOSYNTHESIS BI SCREENING MAMMOGRAPHY BI 2-VIEW BREAST INC Jimbo Egan, DIGITAL COMMUNICATIONS MANAGER.AMUSEMENT RIDE OPERATOR [address] [place] [address] [facility] [address] [place] [address] Referral ID Status Reason Start Date Expiration Date V isits Requested Visits Authorized [id number] Closed Auto-Generate d Referral 10/27/2022 11/26/2023 1 1 [facility] for visit Narrative* Diagnostic Procedure Only (Urgent) - Closed Specialty Diagnoses / Procedures Referred By Francoisac t Referred To Contact XR IMAGING Diagnoses Hip pain, acute, left Procedures XR HIP GENERAL 3V PELV/AP/LAT LEFT RADEX HIP UNILATERAL WITH PELVIS 2-3 VIEWS Ernie Belcher, DIGITAL COMMUNICATIONS MANAGER.COAT OPERATOR INSULATOR [address] [place] [address] [place] [address] Referral ID Status Reason Start Date Expiration Date V isits Requested Visits Authorized [id number] Closed Auto-Generate d Referral 12/31/2021 01/30/2023 1 1 [facility] for visit Narrative* Diagnostic Procedure Only (Routine) - Closed Specialty Diagnoses / Procedures Referred By Francoisac t Referred To Contact [facility] Diagnoses Nonrheumatic aortic valve stenosis Procedures NM SPECT/CT CARDIAC AMYLOID RP LOCLZJ MARY SPECT W/CT 1 AREA 1 DAY IMAGING Monica Aguila, DIGITAL COMMUNICATIONS MANAGER.COAT OPERATOR INSULATOR [address] [place] [address] [facility] [address] [place] [address] Referral ID Status Reason Start Date Expiration Date V isits Requested Visits Authorized [id number] Closed Auto-Generate d Referral 01/08/2024 02/06/2025 1 1 [facility] Summary Purpose Family History No Family History Records FoundNo Family History Records FoundNo Family History Records FoundNo Family History Records FoundNo Family History Records FoundNo Family History Records Found Advance Directives No Advanced Directives Records FoundDocuments on File Type Date Recorded 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 Advance Directive(s) 02/25/2018 1:19 PM [...] Documents on File Type Date Recorded 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 Advance Directive(s) 03/24/2019 12:16 PM Advance Directive(s) 03/02/2018 11:28 AM Advance Directive(s) 02/25/2018 1:11 PM Advance Directive(s) 02/25/2018 1:19 PM Advance Directive(s) 01/25/2018 9:15 AM Advance Directive(s) 07/30/2017 2:22 PM Documents on File Type Date Recorded 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.] Will No March 28 4:31pm Power of [employer] No March 28, 2023 4:31pm Name of Medical Power of [employer] diallo araiza March 26, 2023 5:06pm Advance Directive Response Recorded Date/ Time Living Will No March 31 5:01pm Power [employer] No March 31, 2023 5:01pm Name of Medical Power of [employer] diallo araiza March 26, 2023 5:06pm Advance Directive Response Recorded Date/ Time Name of Medical Power of [employer] Milena Elainediandra and Padmini Chang March 31, 2023 9:38pm Living Will Yes April 04 4:12pm Power of [employer] Yes April 04, 2023 4:12pm Name of Medical Power of [employer] diallo araiza March 26, 2023 5:06pm Advance Directive Response Recorded Date/ Time Name of Medical Power of [employer] Milena Araiza and Padmini Chang March 31, 2023 9:38pm Name of Medical Power of [employer] diallo araiza March 26, 2023 5:06pm Name of Medical Power of [employer] Suzie Araiza (Milena), friend April 09, 2023 2:27pm Living Will Yes April 09 024 2:27pm Power of [employer] Yes April 09, 2023 2:27pm Advance Directive Response Recorded Date/ Time Name of Medical Power of [employer] Milena Henrydiandra and Padmini Chang March 31, 2023 10:38pm Name of Medical Power of [employer] diallo araiza March 26, 2023 6:06pm Name of Medical Power of [employer] Suzie Elainediandra (Milena), friend April 09, 2023 3:27pm Living Will Yes April 09 024 3:27pm Power of [employer] Yes February 19th, 2024 3:27pm Date Activated [...] Do you have a Healthcare Power of [employer]? Yes May 28, 2024 8:37am Advance Directive Response Recorded Date/ Time Advance Directives on File Yes May 28, 2024 8:37am Living Will Yes May 28, 2024 8:37am Do you have a Healthcare Power of [employer]? Yes May 28, 2024 8:37am Do you have a Healthcare Power of [employer]? Yes August 23, 2024 11:43am Name of Medical Power of [employer] Milena Araiza August 23, 2024 7:33am Advance Directive Response Recorded Date/ Time Do you have a Healthcare Power of [employer]? Yes August 23, 2024 11:43am Name of Medical Power of [employer] Milena Araiza August 23, 2024 7:33am Advance Directive Response Recorded Date/ Time Do you have a Healthcare Power of [employer]? Yes August 23, 2024 11:43am Name of Medical Power of [employer] Milena Araiza August 23, 2024 7:33am Do you have a Healthcare Power of [employer]? Yes October 19, 2024 12:42am Reason for Referral Specialty Diagnoses / Procedures Referred By Divya t Referred To Contact CT IMAGING Diagnoses Lung nodules Procedures CT CHEST WO IVCON DIAGNOSTIC COMPUTED TOMOGRAPHY THORAX W/O MARIA LUISAT Florence Collins MD [address] [place] [address] Ct Imaging Referral ID Status Reason Start Date Expiration Date Visits Requested Visits Authorized [id number] Authorized Auto-Generat ed Referral 2 12/29/2022 1 1 Specialty Diagnoses / Procedures Referred By Divya t Referred To Contact CT IMAGING Diagnoses Lung nodules Bronchiectasis without complication (HCC) Procedures CT CHEST WO IVCON DIAGNOSTIC COMPUTED TOMOGRAPHY THORAX W/O Florence Duncan MD [address] [place] [address] Ct Imaging Referral ID Status Reason Start Date Expiration Date Visits Requested Visits Authorized [id number] Authorized Auto-Generat ed Referral 01/23/2023 08/23/2023 1 1 Specialty Diagnoses / Procedures Referred By Contac t Referred To Contact CT IMAGING Diagnoses Lung nodules Procedures CT CHEST WO IVCON DIAGNOSTIC COMPUTED TOMOGRAPHY THORAX W/O Florence Duncan MD [address] [place] [address] [place] [address] Referral ID Status Reason Start Date Expiration Date V isits Requested Visits Authorized [id number] Closed Auto-Generate d Referral 11/29/2021 12/29/2022 1 1 Specialty Diagnoses / Procedures Referred By Contac t Referred To Contact Claudine Durán MD [address] [place] [address] Referral ID Status Reason Start Date Expiration Date Visits Re quested Visits Authorized [id number] Closed 1 1 Specialty Diagnoses / Procedures Referred By Contac t Referred To Contact Orthopedics Diagnoses Rheumatoid arthritis involving multiple sites with positive rheumatoid factor (HCC) Pain and swelling of right knee Procedures CONSULT TO ORTHOPAEDICS OFFICE/OUTPATIENT [facility] 60 MINUTES Jimbo Swanson, DIGITAL COMMUNICATIONS MANAGER.AMUSEMENT RIDE OPERATOR [address] [place] [address] Referral ID Status Reason Start Date Expiration Date Visits Requested Visits Authorized [id number] Authorized PCP Requested Referral 07/13/2023 07/12/2024 1 1 Specialty Diagnoses / Procedures Referred By Contac t Referred To Contact CT IMAGING Diagnoses Disseminated histoplasmosis Procedures CT CHEST WO IVCON DIAGNOSTIC COMPUTED TOMOGRAPHY THORAX W/O CNTRST Geno Hart MD [address] [place] [address] [place] [address] Referral ID Status Reason Start Date Expiration Date V isits Requested Visits Authorized [id number] Closed Auto-Generate d Referral 08/30/2023 02/19/2024 1 1 Specialty Diagnoses / Procedures Referred By Contac t Referred To Contact Cardiology Diagnoses Aortic valve stenosis, etiology of cardiac valve disease unspecified Mitral valve stenosis, unspecified etiology Pericardial effusion Procedures CONSULT TO CARDIOLOGY OFFICE/OUTPATIENT [facility] 60 MINUTES Jimbo Swanson, DIGITAL COMMUNICATIONS MANAGER.AMUSEMENT RIDE OPERATOR [address] [place] [address] Referral ID Status Reason Start Date Expiration Date Visits Requested Visits Authorized [id number] Authorized PCP Requested Referral 10/11/2023 10/10/2024 1 1 Specialty Diagnoses / Procedures Referred By Contac t Referred [facility] Diagnoses Nonrheumatic aortic valve stenosis Nonrheumatic mitral valve stenosis Pericardial effusion Rheumatoid arthritis with positive rheumatoid factor, involving unspecified site (HCC) Histoplasmosis Procedures CARDIOVASCULAR MEDICINE OP FOLLOW UP APPT ORDER Lili Roche MD [address] [place] [address] [facility] [address] [address] Referral ID Status Reason Start Date Expiration Date Visits Requested Visits Authorized [id number] Ref Not Required PCP Requested Referral 07/07/2024 01/07/2025 1 1 Specialty Diagnoses / Procedures Referred By Contac t Referred To Contact [facility] Procedures CARDIOVASCULAR MEDICINE OP [place]LLOW [place] [address] [place] [address] [facility] [place] [address] [place] [address] Referral ID Status Reason Start Date Expiration Date Visits Requested Visits Authorized [id number] Authorized PCP Requested Referral 03/21/2024 03/21/2025 1 1 Specialty Diagnoses / Procedures Referred By Contac t Referred To Contact [facility] Procedures CARDIOVASCULAR MEDICINE OP FOLLOW UP APPT ORDER Monica Aguila, DIGITAL COMMUNICATIONS MANAGER.COAT OPERATOR INSULATOR [address] [place] [address] [facility] [place] [place] [address] Referral ID Status Reason Start Date Expiration Date Visits Requested Visits Authorized [id number] Authorized PCP Requested Referral 03/25/2024 03/25/2025 1 [...] AND EXTREMITY SWELLING RIGHT LEG SWELLING LABWORK [facility] LABWORK Reason for Visit Histoplasmosis [...] AND EXTREMITY SWELLING RIGHT LEG SWELLING LABWORK [facility] LABWORK LABWORK [facility] WORK Reason for Visit Histoplasmosis History [...] AND EXTREMITY SWELLING RIGHT LEG SWELLING LABWORK [facility] LABWORK LABWORK LABWORK [facility] WORK Reason for Visit Histoplasmosis History [...] AND EXTREMITY SWELLING RIGHT LEG SWELLING LABWORK [facility] WORK LABWORK LABWORK LABWORK [facility] WORK LABWORK Reason for Visit Histoplasmosis [...] AND EXTREMITY SWELLING RIGHT LEG SWELLING LABWORK [facility] WORK LABWORK LABWORK LABWORK [facility] LABWORK [facility] WORK Reason for Visit Histoplasmosis History [...] LEG SWELLING ADMISSION EXAM LABWORK ADMISSION EXAM [facility] LABWORK LABWORK LABWORK [facility] LABWORK LABWORK LABWORK LABWORK [facility] LABWORK Reason for Visit Histoplasmosis [...] 0am LABWORK September 29, 2024 5: 00am [facility] WORK October 07, 2024 4:00am FALL [...] new concern September 30, 2024 9: 26pm [facility] WORK October 07, 2024 4:00am FALL [...] new concern September 30, 2024 9: 26pm [facility] WORK October 02, 2024 5:00am [facility] WORK October 07, 2024 4:00am LABWORK October 09, 2024 5: 00am New Concern October 14, 2024 1: 55pm FALL October 19, 2024 12 :40am Additional Source Comments INFORMATION SOURCE (unrecogn ized section and content) DATE CREATED AUTHOR 08/15/2017 [facility] DATE CREATED AUTHOR AUTHOR'S ORGANIZ ATION 03/10/2018 [facility] DATE CREATED AUTHOR AUTHOR'S ORGANIZ ATION 09/04/2023 [facility] DATE CREATED AUTHOR AUTHOR'S ORGANIZ ATION 01/07/2024 [facility] DATE CREATED AUTHOR AUTHOR'S ORGANIZ ATION 10/26/2024 [facility] DATE CREATED AUTHOR AUTHOR'S ORGANIZ ATION 11/07/2024 [facility] Source Comments (unrecognize d section and content) In the event this informatio n is protected by the Federal Confidentiality of Alcohol and Drug Abuse Patient Records regulations: The Federal rules restrict any use of the information to criminally investigate or prosecute any alcohol or drug abuse patient.[facility] the event this information is protected by the Federal Confidentiality of Alcohol and Drug Abuse Patient Records regulations: The Federal rules restrict any use of the information to criminally investigate or prosecute any alcohol or drug abuse patient.[facility] Hospital[facility] the event this information is protected by the Federal Confidentiality of Alcohol and Drug Abuse Patient Records regulations: The Federal rules restrict any use of the information to criminally investigate or prosecute any alcohol or drug abuse patient.[facility] the event this information is protected by the Federal Confidentiality of Alcohol and Drug Abuse Patient Records regulations: The Federal rules restrict any use of the information to criminally investigate or prosecute any alcohol or drug abuse patient.[facility] the event this information is protected by the Federal Confidentiality of Alcohol and Drug Abuse Patient Records regulations: The Federal rules restrict any use of the information to criminally investigate or prosecute any alcohol or drug abuse patient.[facility] Hospital[facility] the event this information is protected by the Federal Confidentiality of Alcohol and Drug Abuse Patient Records regulations: The Federal rules restrict any use of the information to criminally investigate or prosecute any alcohol or drug abuse patient.[facility] Hospital[facility] the event this information is protected by the Federal Confidentiality of Alcohol and Drug Abuse Patient Records regulations: The Federal rules restrict any use of the information to criminally investigate or prosecute any alcohol or drug abuse patient.[facility] the event this information is protected by the Federal Confidentiality of Alcohol and Drug Abuse Patient Records regulations: The Federal rules restrict any use of the information to criminally investigate or prosecute any alcohol or drug abuse patient.[facility] Hospital[facility] the event this information is protected by the Federal Confidentiality of Alcohol and Drug Abuse Patient Records regulations: The Federal rules restrict any use of the information to criminally investigate or prosecute any alcohol or drug abuse patient.[facility] Hospital[facility] the event this information is protected by the Federal Confidentiality of Alcohol and Drug Abuse Patient Records regulations: The Federal rules restrict any use of the information to criminally investigate or prosecute any alcohol or drug abuse patient.[facility] Hospital[facility] the event this information is protected by the Federal Confidentiality of Alcohol and Drug Abuse Patient Records regulations: The Federal rules restrict any use of the information to criminally investigate or prosecute any alcohol or drug abuse patient.[facility] Hospital[facility] the event this information is protected by the Federal Confidentiality of Alcohol and Drug Abuse Patient Records regulations: The Federal rules restrict any use of the information to criminally investigate or prosecute any alcohol or drug abuse patient.[facility] Hospital[facility] the event this information is protected by the Federal Confidentiality of Alcohol and Drug Abuse Patient Records regulations: The Federal rules restrict any use of the information to criminally investigate or prosecute any alcohol or drug abuse patient.[facility] HospitalIn the event this information is protected by the Federal Confidentiality of Alcohol and Drug Abuse Patient Records regulations: The Federal rules restrict any use of the information to criminally investigate or prosecute any alcohol or drug abuse patient.[facility] Hospital[facility] the event this information is protected by the Federal Confidentiality of Alcohol and Drug Abuse Patient Records regulations: The Federal rules restrict any use of the information to criminally investigate or prosecute any alcohol or drug abuse patient.[facility] HospitalIn the event this information is protected by the Federal Confidentiality of Alcohol and Drug Abuse Patient Records regulations: The Federal rules restrict any use of the information to criminally investigate or prosecute any alcohol or drug abuse patient.[facility]In the event this information is protected by the Federal Confidentiality of Alcohol and Drug Abuse Patient Records regulations: The Federal rules restrict any use of the information to criminally investigate or prosecute any alcohol or drug abuse patient.[facility]In the event this information is protected by the Federal Confidentiality of Alcohol and Drug Abuse Patient Records regulations: The Federal rules restrict any use of the information to criminally investigate or prosecute any alcohol or drug abuse patient.[facility] HospitalIn the event this information is protected by the Federal Confidentiality of Alcohol and Drug Abuse Patient Records regulations: The Federal rules restrict any use of the information to criminally investigate or prosecute any alcohol or drug abuse patient.[facility] HospitalIn the event this information is protected by the Federal Confidentiality of Alcohol and Drug Abuse Patient Records regulations: The Federal rules restrict any use of the information to criminally investigate or prosecute any alcohol or drug abuse patient.[facility] the event this information is protected by the Federal Confidentiality of Alcohol and Drug Abuse Patient Records regulations: The Federal rules restrict any use of the information to criminally investigate or prosecute any alcohol or drug abuse patient.[facility] HospitalIn the event this information is protected by the Federal Confidentiality of Alcohol and Drug Abuse Patient Records regulations: The Federal rules restrict any use of the information to criminally investigate or prosecute any alcohol or drug abuse patient.[facility] HospitalIn the event this information is protected by the Federal Confidentiality of Alcohol and Drug Abuse Patient Records regulations: The Federal rules restrict any use of the information to criminally investigate or prosecute any alcohol or drug abuse patient.[facility] HospitalIn the event this information is protected by the Federal Confidentiality of Alcohol and Drug Abuse Patient Records regulations: The Federal rules restrict any use of the information to criminally investigate or prosecute any alcohol or drug abuse patient.[facility] HospitalIn the event this information is protected by the Federal Confidentiality of Alcohol and Drug Abuse Patient Records regulations: The Federal rules restrict any use of the information to criminally investigate or prosecute any alcohol or drug abuse patient.[facility] HospitalIn the event this information is protected by the Federal Confidentiality of Alcohol and Drug Abuse Patient Records regulations: The Federal rules restrict any use of the information to criminally investigate or prosecute any alcohol or drug abuse patient.[facility] HospitalIn the event this information is protected by the Federal Confidentiality of Alcohol and Drug Abuse Patient Records regulations: The Federal rules restrict any use of the information to criminally investigate or prosecute any alcohol or drug abuse patient.[facility] HospitalIn the event this information is protected by the Federal Confidentiality of Alcohol and Drug Abuse Patient Records regulations: The Federal rules restrict any use of the information to criminally investigate or prosecute any alcohol or drug abuse patient.[facility] HospitalIn the event this information is protected by the Federal Confidentiality of Alcohol and Drug Abuse Patient Records regulations: The Federal rules restrict any use of the information to criminally investigate or prosecute any alcohol or drug abuse patient.[facility] HospitalIn the event this information is protected by the Federal Confidentiality of Alcohol and Drug Abuse Patient Records regulations: The Federal rules restrict any use of the information to criminally investigate or prosecute any alcohol or drug abuse patient.[facility] HospitalIn the event this information is protected by the Federal Confidentiality of Alcohol and Drug Abuse Patient Records regulations: The Federal rules restrict any use of the information to criminally investigate or prosecute any alcohol or drug abuse patient.[facility] HospitalIn the event this information is protected by the Federal Confidentiality of Alcohol and Drug Abuse Patient Records regulations: The Federal rules restrict any use of the information to criminally investigate or prosecute any alcohol or drug abuse patient.[facility] HospitalIn the event this information is protected by the Federal Confidentiality of Alcohol and Drug Abuse Patient Records regulations: The Federal rules restrict any use of the information to criminally investigate or prosecute any alcohol or drug abuse patient.[facility] HospitalIn the event this information is protected by the Federal Confidentiality of Alcohol and Drug Abuse Patient Records regulations: The Federal rules restrict any use of the information to criminally investigate or prosecute any alcohol or drug abuse patient.[facility] HospitalIn the event this information is protected by the Federal Confidentiality of Alcohol and Drug Abuse Patient Records regulations: The Federal rules restrict any use of the information to criminally investigate or prosecute any alcohol or drug abuse patient.[facility] HospitalIn the event this information is protected by the Federal Confidentiality of Alcohol and Drug Abuse Patient Records regulations: The Federal rules restrict any use of the information to criminally investigate or prosecute any alcohol or drug abuse patient.[facility] HospitalIn the event this information is protected by the Federal Confidentiality of Alcohol and Drug Abuse Patient Records regulations: The Federal rules restrict any use of the information to criminally investigate or prosecute any alcohol or drug abuse patient.[facility] HospitalIn the event this information is protected by the Federal Confidentiality of Alcohol and Drug Abuse Patient Records regulations: The Federal rules restrict any use of the information to criminally investigate or prosecute any alcohol or drug abuse patient.[facility] HospitalIn the event this information is protected by the Federal Confidentiality of Alcohol and Drug Abuse Patient Records regulations: The Federal rules restrict any use of the information to criminally investigate or prosecute any alcohol or drug abuse patient.[facility] HospitalIn the event this information is protected by the Federal Confidentiality of Alcohol and Drug Abuse Patient Records regulations: The Federal rules restrict any use of the information to criminally investigate or prosecute any alcohol or drug abuse patient.[facility] HospitalIn the event this information is protected by the Federal Confidentiality of Alcohol and Drug Abuse Patient Records regulations: The Federal rules restrict any use of the information to criminally investigate or prosecute any alcohol or drug abuse patient.[facility]In the event this information is protected by the Federal Confidentiality of Alcohol and Drug Abuse Patient Records regulations: The Federal rules restrict any use of the information to criminally investigate or prosecute any alcohol or drug abuse patient.[facility] HospitalIn the event this information is protected by the Federal Confidentiality of Alcohol and Drug Abuse Patient Records regulations: The Federal rules restrict any use of the information to criminally investigate or prosecute any alcohol or drug abuse patient.[facility] HospitalIn the event this information is protected by the Federal Confidentiality of Alcohol and Drug Abuse Patient Records regulations: The Federal rules restrict any use of the information to criminally investigate or prosecute any alcohol or drug abuse patient.[facility] HospitalIn the event this information is protected by the Federal Confidentiality of Alcohol and Drug Abuse Patient Records regulations: The Federal rules restrict any use of the information to criminally investigate or prosecute any alcohol or drug abuse patient.[facility] HospitalIn the event this information is protected by the Federal Confidentiality of Alcohol and Drug Abuse Patient Records regulations: The Federal rules restrict any use of the information to criminally investigate or prosecute any alcohol or drug abuse patient.[facility] HospitalIn the event this information is protected by the Federal Confidentiality of Alcohol and Drug Abuse Patient Records regulations: The Federal rules restrict any use of the information to criminally investigate or prosecute any alcohol or drug abuse patient.[facility] HospitalIn the event this information is protected by the Federal Confidentiality of Alcohol and Drug Abuse Patient Records regulations: The Federal rules restrict any use of the information to criminally investigate or prosecute any alcohol or drug abuse patient.[facility] HospitalIn the event this information is protected by the Federal Confidentiality of Alcohol and Drug Abuse Patient Records regulations: The Federal rules restrict any use of the information to criminally investigate or prosecute any alcohol or drug abuse patient.[facility] HospitalIn the event this information is protected by the Federal Confidentiality of Alcohol and Drug Abuse Patient Records regulations: The Federal rules restrict any use of the information to criminally investigate or prosecute any alcohol or drug abuse patient.[facility] HospitalIn the event this information is protected by the Federal Confidentiality of Alcohol and Drug Abuse Patient Records regulations: The Federal rules restrict any use of the information to criminally investigate or prosecute any alcohol or drug abuse patient.[facility] HospitalIn the event this information is protected by the Federal Confidentiality of Alcohol and Drug Abuse Patient Records regulations: The Federal rules restrict any use of the information to criminally investigate or prosecute any alcohol or drug abuse patient.[facility] HospitalIn the event this information is protected by the Federal Confidentiality of Alcohol and Drug Abuse Patient Records regulations: The Federal rules restrict any use of the information to criminally investigate or prosecute any alcohol or drug abuse patient.[facility] HospitalIn the event this information is protected by the Federal Confidentiality of Alcohol and Drug Abuse Patient Records regulations: The Federal rules restrict any use of the information to criminally investigate or prosecute any alcohol or drug abuse patient.[facility] HospitalIn the event this information is protected by the Federal Confidentiality of Alcohol and Drug Abuse Patient Records regulations: The Federal rules restrict any use of the information to criminally investigate or prosecute any alcohol or drug abuse patient.[facility] HospitalIn the event this information is protected by the Federal Confidentiality of Alcohol and Drug Abuse Patient Records regulations: The Federal rules restrict any use of the information to criminally investigate or prosecute any alcohol or drug abuse patient.[facility] HospitalIn the event this information is protected by the Federal Confidentiality of Alcohol and Drug Abuse Patient Records regulations: The Federal rules restrict any use of the information to criminally investigate or prosecute any alcohol or drug abuse patient.[facility] HospitalIn the event this information is protected by the Federal Confidentiality of Alcohol and Drug Abuse Patient Records regulations: The Federal rules restrict any use of the information to criminally investigate or prosecute any alcohol or drug abuse patient.[facility] HospitalIn the event this information is protected by the Federal Confidentiality of Alcohol and Drug Abuse Patient Records regulations: The Federal rules restrict any use of the information to criminally investigate or prosecute any alcohol or drug abuse patient.[facility] HospitalIn the event this information is protected by the Federal Confidentiality of Alcohol and Drug Abuse Patient Records regulations: The Federal rules restrict any use of the information to criminally investigate or prosecute any alcohol or drug abuse patient.[facility]In the event this information is protected by the Federal Confidentiality of Alcohol and Drug Abuse Patient Records regulations: The Federal rules restrict any use of the information to criminally investigate or prosecute any alcohol or drug abuse patient.[facility] HospitalIn the event this information is protected by the Federal Confidentiality of Alcohol and Drug Abuse Patient Records regulations: The Federal rules restrict any use of the information to criminally investigate or prosecute any alcohol or drug abuse patient.[facility] HospitalIn the event this information is protected by the Federal Confidentiality of Alcohol and Drug Abuse Patient Records regulations: The Federal rules restrict any use of the information to criminally investigate or prosecute any alcohol or drug abuse patient.[facility] HospitalIn the event this information is protected by the Federal Confidentiality of Alcohol and Drug Abuse Patient Records regulations: The Federal rules restrict any use of the information to criminally investigate or prosecute any alcohol or drug abuse patient.[facility] HospitalIn the event this information is protected by the Federal Confidentiality of Alcohol and Drug Abuse Patient Records regulations: The Federal rules restrict any use of the information to criminally investigate or prosecute any alcohol or drug abuse patient.[facility] HospitalIn the event this information is protected by the Federal Confidentiality of Alcohol and Drug Abuse Patient Records regulations: The Federal rules restrict any use of the information to criminally investigate or prosecute any alcohol or drug abuse patient.[facility]In the event this information is protected by the Federal Confidentiality of Alcohol and Drug Abuse Patient Records regulations: The Federal rules restrict any use of the information to criminally investigate or prosecute any alcohol or drug abuse patient.[facility] HospitalIn the event this information is protected by the Federal Confidentiality of Alcohol and Drug Abuse Patient Records regulations: The Federal rules restrict any use of the information to criminally investigate or prosecute any alcohol or drug abuse patient.[facility] HospitalIn the event this information is protected by the Federal Confidentiality of Alcohol and Drug Abuse Patient Records regulations: The Federal rules restrict any use of the information to criminally investigate or prosecute any alcohol or drug abuse patient.[facility] HospitalIn the event this information is protected by the Federal Confidentiality of Alcohol and Drug Abuse Patient Records regulations: The Federal rules restrict any use of the information to criminally investigate or prosecute any alcohol or drug abuse patient.[facility] the event this information is protected by the Federal Confidentiality of Alcohol and Drug Abuse Patient Records regulations: The Federal rules restrict any use of the information to criminally investigate or prosecute any alcohol or drug abuse patient.[facility]In the event this information is protected by the Federal Confidentiality of Alcohol and Drug Abuse Patient Records regulations: The Federal rules restrict any use of the information to criminally investigate or prosecute any alcohol or drug abuse patient.[facility]In the event this information is protected by the Federal Confidentiality of Alcohol and Drug Abuse Patient Records regulations: The Federal rules restrict any use of the information to criminally investigate or prosecute any alcohol or drug abuse patient.[facility]In the event this information is protected by the Federal Confidentiality of Alcohol and Drug Abuse Patient Records regulations: The Federal rules restrict any use of the information to criminally investigate or prosecute any alcohol or drug abuse patient.[facility] HospitalIn the event this information is protected by the Federal Confidentiality of Alcohol and Drug Abuse Patient Records regulations: The Federal rules restrict any use of the information to criminally investigate or prosecute any alcohol or drug abuse patient.[facility]In the event this information is protected by the Federal Confidentiality of Alcohol and Drug Abuse Patient Records regulations: The Federal rules restrict any use of the information to criminally investigate or prosecute any alcohol or drug abuse patient.[facility]In the event this information is protected by the Federal Confidentiality of Alcohol and Drug Abuse Patient Records regulations: The Federal rules restrict any use of the information to criminally investigate or prosecute any alcohol or drug abuse patient.[facility]In the event this information is protected by the Federal Confidentiality of Alcohol and Drug Abuse Patient Records regulations: The Federal rules restrict any use of the information to criminally investigate or prosecute any alcohol or drug abuse patient.[facility] HospitalIn the event this information is protected by the Federal Confidentiality of Alcohol and Drug Abuse Patient Records regulations: The Federal rules restrict any use of the information to criminally investigate or prosecute any alcohol or drug abuse patient.[facility]In the event this information is protected by the Federal Confidentiality of Alcohol and Drug Abuse Patient Records regulations: The Federal rules restrict any use of the information to criminally investigate or prosecute any alcohol or drug abuse patient.[facility]In the event this information is protected by the Federal Confidentiality of Alcohol and Drug Abuse Patient Records regulations: The Federal rules restrict any use of the information to criminally investigate or prosecute any alcohol or drug abuse patient.[facility]In the event this information is protected by the Federal Confidentiality of Alcohol and Drug Abuse Patient Records regulations: The Federal rules restrict any use of the information to criminally investigate or prosecute any alcohol or drug abuse patient.[facility]In the event this information is protected by the Federal Confidentiality of Alcohol and Drug Abuse Patient Records regulations: The Federal rules restrict any use of the information to criminally investigate or prosecute any alcohol or drug abuse patient.[facility] HospitalIn the event this information is protected by the Federal Confidentiality of Alcohol and Drug Abuse Patient Records regulations: The Federal rules restrict any use of the information to criminally investigate or prosecute any alcohol or drug abuse patient.[facility]In the event this information is protected by the Federal Confidentiality of Alcohol and Drug Abuse Patient Records regulations: The Federal rules restrict any use of the information to criminally investigate or prosecute any alcohol or drug abuse patient.[facility]In the event this information is protected by the Federal Confidentiality of Alcohol and Drug Abuse Patient Records regulations: The Federal rules restrict any use of the information to criminally investigate or prosecute any alcohol or drug abuse patient.[facility]In the event this information is protected by the Federal Confidentiality of Alcohol and Drug Abuse Patient Records regulations: The Federal rules restrict any use of the information to criminally investigate or prosecute any alcohol or drug abuse patient.[facility]In the event this information is protected by the Federal Confidentiality of Alcohol and Drug Abuse Patient Records regulations: The Federal rules restrict any use of the information to criminally investigate or prosecute any alcohol or drug abuse patient.[facility]In the event this information is protected by the Federal Confidentiality of Alcohol and Drug Abuse Patient Records regulations: The Federal rules restrict any use of the information to criminally investigate or prosecute any alcohol or drug abuse patient.[facility]In the event this information is protected by the Federal Confidentiality of Alcohol and Drug Abuse Patient Records regulations: The Federal rules restrict any use of the information to criminally investigate or prosecute any alcohol or drug abuse patient.[facility]In the event this information is protected by the Federal Confidentiality of Alcohol and Drug Abuse Patient Records regulations: The Federal rules restrict any use of the information to criminally investigate or prosecute any alcohol or drug abuse patient.[facility]In the event this information is protected by the Federal Confidentiality of Alcohol and Drug Abuse Patient Records regulations: The Federal rules restrict any use of the information to criminally investigate or prosecute any alcohol or drug abuse patient.[facility]In the event this information is protected by the Federal Confidentiality of Alcohol and Drug Abuse Patient Records regulations: The Federal rules restrict any use of the information to criminally investigate or prosecute any alcohol or drug abuse patient.[facility]In the event this information is protected by the Federal Confidentiality of Alcohol and Drug Abuse Patient Records regulations: The Federal rules restrict any use of the information to criminally investigate or prosecute any alcohol or drug abuse patient.[facility]In the event this information is protected by the Federal Confidentiality of Alcohol and Drug Abuse Patient Records regulations: The Federal rules restrict any use of the information to criminally investigate or prosecute any alcohol or drug abuse patient.[facility]In the event this information is protected by the Federal Confidentiality of Alcohol and Drug Abuse Patient Records regulations: The Federal rules restrict any use of the information to criminally investigate or prosecute any alcohol or drug abuse patient.[facility]In the event this information is protected by the Federal Confidentiality of Alcohol and Drug Abuse Patient Records regulations: The Federal rules restrict any use of the information to criminally investigate or prosecute any alcohol or drug abuse patient.[facility]In the event this information is protected by the Federal Confidentiality of Alcohol and Drug Abuse Patient Records regulations: The Federal rules restrict any use of the information to criminally investigate or prosecute any alcohol or drug abuse patient.[facility]In the event this information is protected by the Federal Confidentiality of Alcohol and Drug Abuse Patient Records regulations: The Federal rules restrict any use of the information to criminally investigate or prosecute any alcohol or drug abuse patient.[facility]In the event this information is protected by the Federal Confidentiality of Alcohol and Drug Abuse Patient Records regulations: The Federal rules restrict any use of the information to criminally investigate or prosecute any alcohol or drug abuse patient.[facility]In the event this information is protected by the Federal Confidentiality of Alcohol and Drug Abuse Patient Records regulations: The Federal rules restrict any use of the information to criminally investigate or prosecute any alcohol or drug abuse patient.[facility] HospitalIn the event this information is protected by the Federal Confidentiality of Alcohol and Drug Abuse Patient Records regulations: The Federal rules restrict any use of the information to criminally investigate or prosecute any alcohol or drug abuse patient.[facility]In the event this information is protected by the Federal Confidentiality of Alcohol and Drug Abuse Patient Records regulations: The Federal rules restrict any use of the information to criminally investigate or prosecute any alcohol or drug abuse patient.[facility]In the event this information is protected by the Federal Confidentiality of Alcohol and Drug Abuse Patient Records regulations: The Federal rules restrict any use of the information to criminally investigate or prosecute any alcohol or drug abuse patient.[facility] HospitalIn the event this information is protected by the Federal Confidentiality of Alcohol and Drug Abuse Patient Records regulations: The Federal rules restrict any use of the information to criminally investigate or prosecute any alcohol or drug abuse patient.[facility] HospitalIn the event this information is protected by the Federal Confidentiality of Alcohol and Drug Abuse Patient Records regulations: The Federal rules restrict any use of the information to criminally investigate or prosecute any alcohol or drug abuse patient.[facility] HospitalIn the event this information is protected by the Federal Confidentiality of Alcohol and Drug Abuse Patient Records regulations: The Federal rules restrict any use of the information to criminally investigate or prosecute any alcohol or drug abuse patient.[facility] HospitalIn the event this information is protected by the Federal Confidentiality of Alcohol and Drug Abuse Patient Records regulations: The Federal rules restrict any use of the information to criminally investigate or prosecute any alcohol or drug abuse patient.[facility] HospitalIn the event this information is protected by the Federal Confidentiality of Alcohol and Drug Abuse Patient Records regulations: The Federal rules restrict any use of the information to criminally investigate or prosecute any alcohol or drug abuse patient.[facility]In the event this information is protected by the Federal Confidentiality of Alcohol and Drug Abuse Patient Records regulations: The Federal rules restrict any use of the information to criminally investigate or prosecute any alcohol or drug abuse patient.[facility] HospitalIn the event this information is protected by the Federal Confidentiality of Alcohol and Drug Abuse Patient Records regulations: The Federal rules restrict any use of the information to criminally investigate or prosecute any alcohol or drug abuse patient.[facility] HospitalIn the event this information is protected by the Federal Confidentiality of Alcohol and Drug Abuse Patient Records regulations: The Federal rules restrict any use of the information to criminally investigate or prosecute any alcohol or drug abuse patient.[facility] HospitalIn the event this information is protected by the Federal Confidentiality of Alcohol and Drug Abuse Patient Records regulations: The Federal rules restrict any use of the information to criminally investigate or prosecute any alcohol or drug abuse patient.[facility] HospitalIn the event this information is protected by the Federal Confidentiality of Alcohol and Drug Abuse Patient Records regulations: The Federal rules restrict any use of the information to criminally investigate or prosecute any alcohol or drug abuse patient.[facility] HospitalIn the event this information is protected by the Federal Confidentiality of Alcohol and Drug Abuse Patient Records regulations: The Federal rules restrict any use of the information to criminally investigate or prosecute any alcohol or drug abuse patient.[facility] HospitalIn the event this information is protected by the Federal Confidentiality of Alcohol and Drug Abuse Patient Records regulations: The Federal rules restrict any use of the information to criminally investigate or prosecute any alcohol or drug abuse patient.[facility] HospitalIn the event this information is protected by the Federal Confidentiality of Alcohol and Drug Abuse Patient Records regulations: The Federal rules restrict any use of the information to criminally investigate or prosecute any alcohol or drug abuse patient.[facility] HospitalIn the event this information is protected by the Federal Confidentiality of Alcohol and Drug Abuse Patient Records regulations: The Federal rules restrict any use of the information to criminally investigate or prosecute any alcohol or drug abuse patient.[facility] HospitalIn the event this information is protected by the Federal Confidentiality of Alcohol and Drug Abuse Patient Records regulations: The Federal rules restrict any use of the information to criminally investigate or prosecute any alcohol or drug abuse patient.[facility] HospitalIn the event this information is protected by the Federal Confidentiality of Alcohol and Drug Abuse Patient Records regulations: The Federal rules restrict any use of the information to criminally investigate or prosecute any alcohol or drug abuse patient.[facility] the event this information is protected by the Federal Confidentiality of Alcohol and Drug Abuse Patient Records regulations: The Federal rules restrict any use of the information to criminally investigate or prosecute any alcohol or drug abuse patient.[facility] HospitalIn the event this information is protected by the Federal Confidentiality of Alcohol and Drug Abuse Patient Records regulations: The Federal rules restrict any use of the information to criminally investigate or prosecute any alcohol or drug abuse patient.[facility] HospitalIn the event this information is protected by the Federal Confidentiality of Alcohol and Drug Abuse Patient Records regulations: The Federal rules restrict any use of the information to criminally investigate or prosecute any alcohol or drug abuse patient.[facility] HospitalIn the event this information is protected by the Federal Confidentiality of Alcohol and Drug Abuse Patient Records regulations: The Federal rules restrict any use of the information to criminally investigate or prosecute any alcohol or drug abuse patient.[facility] HospitalIn the event this information is protected by the Federal Confidentiality of Alcohol and Drug Abuse Patient Records regulations: The Federal rules restrict any use of the information to criminally investigate or prosecute any alcohol or drug abuse patient.[facility] HospitalIn the event this information is protected by the Federal Confidentiality of Alcohol and Drug Abuse Patient Records regulations: The Federal rules restrict any use of the information to criminally investigate or prosecute any alcohol or drug abuse patient.[facility] HospitalIn the event this information is protected by the Federal Confidentiality of Alcohol and Drug Abuse Patient Records regulations: The Federal rules restrict any use of the information to criminally investigate or prosecute any alcohol or drug abuse patient.[facility]In the event this information is protected by the Federal Confidentiality of Alcohol and Drug Abuse Patient Records regulations: The Federal rules restrict any use of the information to criminally investigate or prosecute any alcohol or drug abuse patient.[facility] HospitalIn the event this information is protected by the Federal Confidentiality of Alcohol and Drug Abuse Patient Records regulations: The Federal rules restrict any use of the information to criminally investigate or prosecute any alcohol or drug abuse patient.[facility] HospitalIn the event this information is protected by the Federal Confidentiality of Alcohol and Drug Abuse Patient Records regulations: The Federal rules restrict any use of the information to criminally investigate or prosecute any alcohol or drug abuse patient.[facility] HospitalIn the event this information is protected by the Federal Confidentiality of Alcohol and Drug Abuse Patient Records regulations: The Federal rules restrict any use of the information to criminally investigate or prosecute any alcohol or drug abuse patient.[facility] HospitalIn the event this information is protected by the Federal Confidentiality of Alcohol and Drug Abuse Patient Records regulations: The Federal rules restrict any use of the information to criminally investigate or prosecute any alcohol or drug abuse patient.[facility] HospitalIn the event this information is protected by the Federal Confidentiality of Alcohol and Drug Abuse Patient Records regulations: The Federal rules restrict any use of the information to criminally investigate or prosecute any alcohol or drug abuse patient.[facility] HospitalIn the event this information is protected by the Federal Confidentiality of Alcohol and Drug Abuse Patient Records regulations: The Federal rules restrict any use of the information to criminally investigate or prosecute any alcohol or drug abuse patient.[facility] HospitalIn the event this information is protected by the Federal Confidentiality of Alcohol and Drug Abuse Patient Records regulations: The Federal rules restrict any use of the information to criminally investigate or prosecute any alcohol or drug abuse patient.[facility] HospitalIn the event this information is protected by the Federal Confidentiality of Alcohol and Drug Abuse Patient Records regulations: The Federal rules restrict any use of the information to criminally investigate or prosecute any alcohol or drug abuse patient.[facility] HospitalIn the event this information is protected by the Federal Confidentiality of Alcohol and Drug Abuse Patient Records regulations: The Federal rules restrict any use of the information to criminally investigate or prosecute any alcohol or drug abuse patient.[facility]In the event this information is protected by the Federal Confidentiality of Alcohol and Drug Abuse Patient Records regulations: The Federal rules restrict any use of the information to criminally investigate or prosecute any alcohol or drug abuse patient.[facility]In the event this information is protected by the Federal Confidentiality of Alcohol and Drug Abuse Patient Records regulations: The Federal rules restrict any use of the information to criminally investigate or prosecute any alcohol or drug abuse patient.[facility] HospitalIn the event this information is protected by the Federal Confidentiality of Alcohol and Drug Abuse Patient Records regulations: The Federal rules restrict any use of the information to criminally investigate or prosecute any alcohol or drug abuse patient.[facility] HospitalIn the event this information is protected by the Federal Confidentiality of Alcohol and Drug Abuse Patient Records regulations: The Federal rules restrict any use of the information to criminally investigate or prosecute any alcohol or drug abuse patient.[facility] HospitalIn the event this information is protected by the Federal Confidentiality of Alcohol and Drug Abuse Patient Records regulations: The Federal rules restrict any use of the information to criminally investigate or prosecute any alcohol or drug abuse patient.[facility] HospitalIn the event this information is protected by the Federal Confidentiality of Alcohol and Drug Abuse Patient Records regulations: The Federal rules restrict any use of the information to criminally investigate or prosecute any alcohol or drug abuse patient.[facility] HospitalIn the event this information is protected by the Federal Confidentiality of Alcohol and Drug Abuse Patient Records regulations: The Federal rules restrict any use of the information to criminally investigate or prosecute any alcohol or drug abuse patient.[facility] HospitalIn the event this information is protected by the Federal Confidentiality of Alcohol and Drug Abuse Patient Records regulations: The Federal rules restrict any use of the information to criminally investigate or prosecute any alcohol or drug abuse patient.[facility] HospitalIn the event this information is protected by the Federal Confidentiality of Alcohol and Drug Abuse Patient Records regulations: The Federal rules restrict any use of the information to criminally investigate or prosecute any alcohol or drug abuse patient.[facility] HospitalIn the event this information is protected by the Federal Confidentiality of Alcohol and Drug Abuse Patient Records regulations: The Federal rules restrict any use of the information to criminally investigate or prosecute any alcohol or drug abuse patient.[facility] HospitalIn the event this information is protected by the Federal Confidentiality of Alcohol and Drug Abuse Patient Records regulations: The Federal rules restrict any use of the information to criminally investigate or prosecute any alcohol or drug abuse patient.[facility] HospitalIn the event this information is protected by the Federal Confidentiality of Alcohol and Drug Abuse Patient Records regulations: The Federal rules restrict any use of the information to criminally investigate or prosecute any alcohol or drug abuse patient.[facility] HospitalIn the event this information is protected by the Federal Confidentiality of Alcohol and Drug Abuse Patient Records regulations: The Federal rules restrict any use of the information to criminally investigate or prosecute any alcohol or drug abuse patient.[facility] HospitalIn the event this information is protected by the Federal Confidentiality of Alcohol and Drug Abuse Patient Records regulations: The Federal rules restrict any use of the information to criminally investigate or prosecute any alcohol or drug abuse patient.[facility] HospitalIn the event this information is protected by the Federal Confidentiality of Alcohol and Drug Abuse Patient Records regulations: The Federal rules restrict any use of the information to criminally investigate or prosecute any alcohol or drug abuse patient.[facility] HospitalIn the event this information is protected by the Federal Confidentiality of Alcohol and Drug Abuse Patient Records regulations: The Federal rules restrict any use of the information to criminally investigate or prosecute any alcohol or drug abuse patient.[facility]In the event this information is protected by the Federal Confidentiality of Alcohol and Drug Abuse Patient Records regulations: The Federal rules restrict any use of the information to criminally investigate or prosecute any alcohol or drug abuse patient.[facility] HospitalIn the event this information is protected by the Federal Confidentiality of Alcohol and Drug Abuse Patient Records regulations: The Federal rules restrict any use of the information to criminally investigate or prosecute any alcohol or drug abuse patient.[facility]In the event this information is protected by the Federal Confidentiality of Alcohol and Drug Abuse Patient Records regulations: The Federal rules restrict any use of the information to criminally investigate or prosecute any alcohol or drug abuse patient.[facility]In the event this information is protected by the Federal Confidentiality of Alcohol and Drug Abuse Patient Records regulations: The Federal rules restrict any use of the information to criminally investigate or prosecute any alcohol or drug abuse patient.[facility]In the event this information is protected by the Federal Confidentiality of Alcohol and Drug Abuse Patient Records regulations: The Federal rules restrict any use of the information to criminally investigate or prosecute any alcohol or drug abuse patient.[facility]In the event this information is protected by the Federal Confidentiality of Alcohol and Drug Abuse Patient Records regulations: The Federal rules restrict any use of the information to criminally investigate or prosecute any alcohol or drug abuse patient.[facility]In the event this information is protected by the Federal Confidentiality of Alcohol and Drug Abuse Patient Records regulations: The Federal rules restrict any use of the information to criminally investigate or prosecute any alcohol or drug abuse patient.[facility]In the event this information is protected by the Federal Confidentiality of Alcohol and Drug Abuse Patient Records regulations: The Federal rules restrict any use of the information to criminally investigate or prosecute any alcohol or drug abuse patient.[facility]In the event this information is protected by the Federal Confidentiality of Alcohol and Drug Abuse Patient Records regulations: The Federal rules restrict any use of the information to criminally investigate or prosecute any alcohol or drug abuse patient.[facility]In the event this information is protected by the Federal Confidentiality of Alcohol and Drug Abuse Patient Records regulations: The Federal rules restrict any use of the information to criminally investigate or prosecute any alcohol or drug abuse patient.[facility]In the event this information is protected by the Federal Confidentiality of Alcohol and Drug Abuse Patient Records regulations: The Federal rules restrict any use of the information to criminally investigate or prosecute any alcohol or drug abuse patient.[facility]In the event this information is protected by the Federal Confidentiality of Alcohol and Drug Abuse Patient Records regulations: The Federal rules restrict any use of the information to criminally investigate or prosecute any alcohol or drug abuse patient.[facility]In the event this information is protected by the Federal Confidentiality of Alcohol and Drug Abuse Patient Records regulations: The Federal rules restrict any use of the information to criminally investigate or prosecute any alcohol or drug abuse patient.[facility]In the event this information is protected by the Federal Confidentiality of Alcohol and Drug Abuse Patient Records regulations: The Federal rules restrict any use of the information to criminally investigate or prosecute any alcohol or drug abuse patient.[facility]In the event this information is protected by the Federal Confidentiality of Alcohol and Drug Abuse Patient Records regulations: The Federal rules restrict any use of the information to criminally investigate or prosecute any alcohol or drug abuse patient.[facility] HospitalIn the event this information is protected by the Federal Confidentiality of Alcohol and Drug Abuse Patient Records regulations: The Federal rules restrict any use of the information to criminally investigate or prosecute any alcohol or drug abuse patient.[facility] HospitalIn the event this information is protected by the Federal Confidentiality of Alcohol and Drug Abuse Patient Records regulations: The Federal rules restrict any use of the information to criminally investigate or prosecute any alcohol or drug abuse patient.[facility] the event this information is protected by the Federal Confidentiality of Alcohol and Drug Abuse Patient Records regulations: The Federal rules restrict any use of the information to criminally investigate or prosecute any alcohol or drug abuse patient.[facility]In the event this information is protected by the Federal Confidentiality of Alcohol and Drug Abuse Patient Records regulations: The Federal rules restrict any use of the information to criminally investigate or prosecute any alcohol or drug abuse patient.[facility]In the event this information is protected by the Federal Confidentiality of Alcohol and Drug Abuse Patient Records regulations: The Federal rules restrict any use of the information to criminally investigate or prosecute any alcohol or drug abuse patient.[facility]In the event this information is protected by the Federal Confidentiality of Alcohol and Drug Abuse Patient Records regulations: The Federal rules restrict any use of the information to criminally investigate or prosecute any alcohol or drug abuse patient.[facility]In the event this information is protected by the Federal Confidentiality of Alcohol and Drug Abuse Patient Records regulations: The Federal rules restrict any use of the information to criminally investigate or prosecute any alcohol or drug abuse patient.[facility]In the event this information is protected by the Federal Confidentiality of Alcohol and Drug Abuse Patient Records regulations: The Federal rules restrict any use of the information to criminally investigate or prosecute any alcohol or drug abuse patient.[facility]In the event this information is protected by the Federal Confidentiality of Alcohol and Drug Abuse Patient Records regulations: The Federal rules restrict any use of the information to criminally investigate or prosecute any alcohol or drug abuse patient.[facility]In the event this information is protected by the Federal Confidentiality of Alcohol and Drug Abuse Patient Records regulations: The Federal rules restrict any use of the information to criminally investigate or prosecute any alcohol or drug abuse patient.[facility]In the event this information is protected by the Federal Confidentiality of Alcohol and Drug Abuse Patient Records regulations: The Federal rules restrict any use of the information to criminally investigate or prosecute any alcohol or drug abuse patient.[facility]In the event this information is protected by the Federal Confidentiality of Alcohol and Drug Abuse Patient Records regulations: The Federal rules restrict any use of the information to criminally investigate or prosecute any alcohol or drug abuse patient.[facility]In the event this information is protected by the Federal Confidentiality of Alcohol and Drug Abuse Patient Records regulations: The Federal rules restrict any use of the information to criminally investigate or prosecute any alcohol or drug abuse patient.[facility]In the event this information is protected by the Federal Confidentiality of Alcohol and Drug Abuse Patient Records regulations: The Federal rules restrict any use of the information to criminally investigate or prosecute any alcohol or drug abuse patient.[facility]In the event this information is protected by the Federal Confidentiality of Alcohol and Drug Abuse Patient Records regulations: The Federal rules restrict any use of the information to criminally investigate or prosecute any alcohol or drug abuse patient.[facility]In the event this information is protected by the Federal Confidentiality of Alcohol and Drug Abuse Patient Records regulations: The Federal rules restrict any use of the information to criminally investigate or prosecute any alcohol or drug abuse patient.[facility]In the event this information is protected by the Federal Confidentiality of Alcohol and Drug Abuse Patient Records regulations: The Federal rules restrict any use of the information to criminally investigate or prosecute any alcohol or drug abuse patient.[facility]In the event this information is protected by the Federal Confidentiality of Alcohol and Drug Abuse Patient Records regulations: The Federal rules restrict any use of the information to criminally investigate or prosecute any alcohol or drug abuse patient.[facility]In the event this information is protected by the Federal Confidentiality of Alcohol and Drug Abuse Patient Records regulations: The Federal rules restrict any use of the information to criminally investigate or prosecute any alcohol or drug abuse patient.[facility] HospitalIn the event this information is protected by the Federal Confidentiality of Alcohol and Drug Abuse Patient Records regulations: The Federal rules restrict any use of the information to criminally investigate or prosecute any alcohol or drug abuse patient.[facility] HospitalIn the event this information is protected by the Federal Confidentiality of Alcohol and Drug Abuse Patient Records regulations: The Federal rules restrict any use of the information to criminally investigate or prosecute any alcohol or drug abuse patient.[facility] HospitalIn the event this information is protected by the Federal Confidentiality of Alcohol and Drug Abuse Patient Records regulations: The Federal rules restrict any use of the information to criminally investigate or prosecute any alcohol or drug abuse patient.[facility] HospitalIn the event this information is protected by the Federal Confidentiality of Alcohol and Drug Abuse Patient Records regulations: The Federal rules restrict any use of the information to criminally investigate or prosecute any alcohol or drug abuse patient.[facility] HospitalIn the event this information is protected by the Federal Confidentiality of Alcohol and Drug Abuse Patient Records regulations: The Federal rules restrict any use of the information to criminally investigate or prosecute any alcohol or drug abuse patient.[facility] HospitalIn the event this information is protected by the Federal Confidentiality of Alcohol and Drug Abuse Patient Records regulations: The Federal rules restrict any use of the information to criminally investigate or prosecute any alcohol or drug abuse patient.[facility] HospitalIn the event this information is protected by the Federal Confidentiality of Alcohol and Drug Abuse Patient Records regulations: The Federal rules restrict any use of the information to criminally investigate or prosecute any alcohol or drug abuse patient.[facility] HospitalIn the event this information is protected by the Federal Confidentiality of Alcohol and Drug Abuse Patient Records regulations: The Federal rules restrict any use of the information to criminally investigate or prosecute any alcohol or drug abuse patient.[facility] HospitalIn the event this information is protected by the Federal Confidentiality of Alcohol and Drug Abuse Patient Records regulations: The Federal rules restrict any use of the information to criminally investigate or prosecute any alcohol or drug abuse patient.[facility] HospitalIn the event this information is protected by the Federal Confidentiality of Alcohol and Drug Abuse Patient Records regulations: The Federal rules restrict any use of the information to criminally investigate or prosecute any alcohol or drug abuse patient.[facility] HospitalIn the event this information is protected by the Federal Confidentiality of Alcohol and Drug Abuse Patient Records regulations: The Federal rules restrict any use of the information to criminally investigate or prosecute any alcohol or drug abuse patient.[facility] HospitalIn the event this information is protected by the Federal Confidentiality of Alcohol and Drug Abuse Patient Records regulations: The Federal rules restrict any use of the information to criminally investigate or prosecute any alcohol or drug abuse patient.[facility] HospitalIn the event this information is protected by the Federal Confidentiality of Alcohol and Drug Abuse Patient Records regulations: The Federal rules restrict any use of the information to criminally investigate or prosecute any alcohol or drug abuse patient.[facility] HospitalIn the event this information is protected by the Federal Confidentiality of Alcohol and Drug Abuse Patient Records regulations: The Federal rules restrict any use of the information to criminally investigate or prosecute any alcohol or drug abuse patient.[facility] HospitalIn the event this information is protected by the Federal Confidentiality of Alcohol and Drug Abuse Patient Records regulations: The Federal rules restrict any use of the information to criminally investigate or prosecute any alcohol or drug abuse patient.[facility] HospitalIn the event this information is protected by the Federal Confidentiality of Alcohol and Drug Abuse Patient Records regulations: The Federal rules restrict any use of the information to criminally investigate or prosecute any alcohol or drug abuse patient.[facility] HospitalIn the event this information is protected by the Federal Confidentiality of Alcohol and Drug Abuse Patient Records regulations: The Federal rules restrict any use of the information to criminally investigate or prosecute any alcohol or drug abuse patient.[facility] Reason for Visit (unrecogniz ed section [...] BREAST UNI REAL TIME WITH IMAGE LIMITED Coyote, DIGITAL COMMUNICATIONS MANAGER.COAT OPERATOR INSULATOR [address] [place] [address] Br Imaging [address] [place] [id number] Referral ID Status Reason Start Date Expiration Date V isits Requested Visits Authorized [id number] Closed Auto-Generate d Referral 09/05/2021 10/05/2022 1 1 Reason Comments Radiology Mammogram Specialty Diagnoses / Procedures Referred By Contac t Referred To Contact BR IMAGING Diagnoses Abnormal mammogram Procedures SABINO DIAGNOSTIC LT DIAGNOSTIC MAMMOGRAPHY COMPUTER-AIDED DETCJ UNI Coyote, Brenda, DIGITAL COMMUNICATIONS MANAGER.COAT OPERATOR INSULATOR [address] [place] [address] Br Imaging [address] [place] [address] Referral ID Status Reason Start Date Expiration Date V isits Requested Visits Authorized [id number] Closed Auto-Generate d Referral 09/05/2021 10/05/2022 1 [...] acute, left Procedures CONSULT TO ORTHOPAEDICS OFFICE/OUTPATIENT [facility] HIGH MDM 60-74 MINUTES Twyla Cuevas APRN.COAT OPERATOR INSULATOR [address] [place] [address] Referral ID Status Reason Start Date Expiration Date Visits Requested Visits Authorized [id number] Pending Review PCP Requested Referral 10/11/2022 10/11/2023 1 1 Reason Onset Date Comments Refill Request 12/20/[address] Specialty Diagnoses / Procedures Referred By Contac t Referred To Contact CT IMAGING Diagnoses Lung nodules Procedures CT CHEST WO IVCON DIAGNOSTIC COMPUTED TOMOGRAPHY THORAX W/O Florence Duncan MD [address] [place] [address] Ct Imaging [place] [address] Referral ID Status Reason Start Date Expiration Date V isits Requested Visits Authorized [id number] Closed Auto-Generate d Referral 11/29/2021 12/29/2022 1 [...] Reason Comments Discharge Skilled Rehab Discharged from [facility] Reason Onset Date Comments Refill Request [...] MD [address] [place] [address] [place] [address] Referral ID Status Reason Start Date Expiration Date V isits Requested Visits Authorized [id number] Closed Auto-Generate d Referral 08/30/2023 02/19/2024 1 1 Reason Onset Date Comments Refill Request 08/30/2023 Reason Onset Date Comments Community Monitoring Outreach 08/31/2023 F/ U engagement [facility] Home Monitoring Reason Comments Histoplasmosis Reason Comments Hospital F/U [facility] ED/Hospital disc harge 08/18/23 Reason Comments Med [...] years)Recent BLE Edema and Discomfort- compression/diuretics effectiveJune [facility] for BleedingDoesn't like taking diuretics when [...] NEW HIGH MDM 60 MINUTES Jimbo Swanson, DIGITAL COMMUNICATIONS MANAGER.AMUSEMENT RIDE OPERATOR [address] [place] [address] Referral ID Status Reason Start Date Expiration Date V isits Requested Visits Authorized [id number] Closed PCP Requested Referral 10/11/2023 10/10/2024 1 [...] ABD&PLVIS CNTRST MTRL W/WO CNTRST IMMonica Ruffin, DIGITAL COMMUNICATIONS MANAGER.COAT OPERATOR INSULATOR [address] [place] [id number] Imaging [place] [address] Referral ID Status Reason Start Date Expiration Date V isits Requested Visits Authorized [id number] Closed Auto-Generate d Referral 01/08/2024 02/06/2025 1 1 Reason Comments Patient Education Reason Comments Spirometry Specialty Diagnoses / Procedures Referred By Contac t Referred To Contact [facility] Diagnoses Nonrheumatic aortic valve stenosis Procedures SPIROMETRY BASELINE ONLY SPMTRY W/VC EXPIRATORY [place] W/WO MXML VOL VNTJ Monica Aguila, DIGITAL COMMUNICATIONS MANAGER.COAT OPERATOR INSULATOR [address] [place] [address] [facility] [address] [place] [address] Referral ID Status Reason Start Date Expiration Date V isits Requested Visits Authorized [id number] Closed Auto-Generate d Referral 01/08/2024 02/06/2025 1 1 Specialty Diagnoses / Procedures Referred By Contac t Referred To Contact [facility] Diagnoses Nonrheumatic aortic valve stenosis Procedures LUNG DIFFUSION CAPACITY (DLCO) DIFFUSING CAPACITY Monica Aguila, CONNIE.COAT OPERATOR INSULATOR [address] [place] [address] [facility] [address] [place] [address] Referral ID Status Reason Start Date Expiration Date V isits Requested Visits Authorized [id number] Closed Auto-Generate d Referral 01/08/2024 02/06/2025 1 1 Reason Comments Aortic Stenosis Reason Comments Radiology NM Specialty Diagnoses / Procedures Referred By Contac t Referred To Contact MOLECULAR & FUNCTIONAL IMAGING Diagnoses Nonrheumatic aortic valve stenosis Procedures NM SPECT/CT CARDIAC AMYLOID RP LOCLZJ MARY SPECT W/CT 1 AREA 1 DAY IMAGING Monica Aguila APRN.COAT OPERATOR INSULATOR [address] [place] [address] Molecular & Functional Imaging [address] [place] [address] Referral ID Status Reason Start Date Expiration Date V isits Requested Visits Authorized [id number] Closed Auto-Generate d Referral 01/08/2024 02/06/2025 1 1 Reason Onset Date Comments Population Health Navigation Outreach 03/26/2024 [employer] High Risk - Attempt 2 Reason Onset Date Comments Population Health Navigation Outreach 03/31/2024 [employer] High Risk - Attempt 3 Reason Comments TAVR Meeting Reason Comments Insurance Authorization Reason Comments Referral Information Surgical Consult [facility] Dr. Francis Reason Comments Appointment [...] Care Teams (unrecognized sec tion and content) Couples Therapist Relationship Specialty Start Date End Date Claudine Durán MD [address] [place], [place] [address]391 PCP - General Internal Medicine 03/02/16 Will Hurley [address] [place] [address] Referring Rheumatology 04/09/18 Gold Colón, wedding cake designerTool And Die Repair Internal Medicine 07/22/20 Couples Therapist Relationship Specialty Start Date End Date Claudine Durán MD [address] [place], [place] [id number] PCP - General Internal Medicine 03/02/16 Will Hurley[address] [place], [place] [address] Referring Rheumatology 04/09/18 Gold Colón, wedding cake designerTool And Die Repair Internal Medicine 07/22/20 Couples Therapist Relationship Specialty Start Date End Date Claudine Durán MD [address] [place], [place] [id number] PCP - General Internal Medicine 03/02/16 [place] [address] Referring Rheumatology 04/09/18 Gold Colón, wedding cake designerTool And Die Repair Internal Medicine 07/22/20 Couples Therapist Relationship Specialty Start Date End Date Claudine Durán MD [address] [place], [place] [address]211 PCP - General Internal Medicine 03/02/16 Will Hurley [place] [place] [address] Referring Rheumatology 04/09/18 Gold Colón, wedding cake designerTool And Die Repair Internal Medicine 07/22/20 Couples Therapist Relationship Specialty Start Date End Date Claudine Durán MD [address] [facility], [place] [address] PCP - General Internal Medicine 03/02/16 Will Hurley [address] [place] [address] Referring Rheumatology 04/09/18 Gold Colón, wedding cake designerTool And Die Repair Internal Medicine 07/22/20 Couples Therapist Relationship Specialty Start Date End Date Claudine Durán MD [address] [facility], [place] [address] PCP - General Internal Medicine 03/02/16 Will Hurley [address] [place] [address] Referring Rheumatology 04/09/18 Gold Colón, wedding cake designerTool And Die Repair Internal Medicine 07/22/20 Couples Therapist Relationship Specialty Start Date End Date Claudine Durán MD [address] [facility] [place] [address] PCP - General Internal Medicine 03/02/16 Will Hurley [address] [facility] [place] [address] Referring Rheumatology 04/09/18 Gold Colón, wedding cake designerTool And Die Repair Internal Medicine 07/22/20 Couples Therapist Relationship Specialty Start Date End Date Claudine Durán MD [address] [facility] [place], [place] [address] PCP - General Internal Medicine 03/02/16 Will Hurley [address] [place] [address] Referring Rheumatology 04/09/18 Gold Colón, wedding cake designerTool And Die Repair Internal Medicine 07/22/20 Couples Therapist Relationship Specialty Start Date End Date Claudine Durán MD [address] [facility] [place], [place] [address] PCP - General Internal Medicine 03/02/16 Will Hurley [address] [place] [address] Referring Rheumatology 04/09/18 Gold Colón, wedding cake designerTool And Die Repair Internal Medicine 07/22/20 Couples Therapist Relationship Specialty Start Date End Date Claudine Durán MD [address] [place] [address] PCP - General Internal Medicine 03/02/16 Will Hurley [address] [place] [address] Referring Rheumatology 04/09/18 Gold Colón, wedding cake designerTool And Die Repair Internal Medicine 07/22/20 Couples Therapist Relationship Specialty Start Date End Date Claudine Durán MD [address] [place] [address] PCP - General Internal Medicine 03/02/16 Will Hurley [address] [place] [address] Referring Rheumatology 04/09/18 Gold Colón, wedding cake designerTool And Die Repair Internal Medicine 07/22/20 Couples Therapist Relationship Specialty Start Date End Date Claudine Durán MD [address] [place] [address] PCP - General Internal Medicine 03/02/16 Will Hurley [address] [place] [address] Referring Rheumatology 04/09/18 Gold Colón, wedding cake designerTool And Die Repair Internal Medicine 07/22/20 Couples Therapist Relationship Specialty Start Date End Date Claudine Durán MD [address] [place], [place] [address]661 PCP - General Internal Medicine 03/02/16 Will Hurley [address] [place] [address] Referring Rheumatology 04/09/18 Gold Colón, wedding cake designerTool And Die Repair Internal Medicine 07/22/20 Couples Therapist Relationship Specialty Start Date End Date Claudine Durán MD [address] [place] [address] PCP - General Internal Medicine 03/02/16 Will Hurley [address] [place] [address] Referring Rheumatology 04/09/18 Gold Colón, wedding cake designerTool And Die Repair Internal Medicine 07/22/20 Couples Therapist Relationship Specialty Start Date End Date Claudine Durán MD [address] [place] [address] PCP - General Internal Medicine 03/02/16 Will Hurley [address] [place] [address] Referring Rheumatology 04/09/18 Gold Colón, wedding cake designerTool And Die Repair Internal Medicine 07/22/20 Couples Therapist Relationship Specialty Start Date End Date Claudine Durán MD [address] [place], [place] [id number] PCP - General Internal Medicine 03/02/16 Will Hurley [address] [facility], [place] [address] Referring Rheumatology 04/09/18 Godl Colón, wedding cake designerTool And Die Repair Internal Medicine 07/22/20 Couples Therapist Relationship Specialty Start Date End Date Claudine Durán MD [address] [place], [place] [address] PCP - General Internal Medicine 03/02/16 Will Hurley[address] [place] [address] Referring Rheumatology 04/09/18 Gold Colón wedding cake designerTool And Die Repair Internal Medicine 07/22/20 Couples Therapist Relationship Specialty Start Date End Date Claudine Durán MD [address] [place] [address] PCP - General Internal Medicine 03/02/16 Will Hurley [address] [place] [address] Referring Rheumatology 04/09/18 Gold Colón, wedding cake designerTool And Die Repair Internal Medicine 07/22/20 Couples Therapist Relationship Specialty Start Date End Date Claudine Durán MD [address] [place], [place] [address]70841 PCP - General Internal Medicine 03/02/16 Will Hurley [address] [place] [address] Referring Rheumatology 04/09/18 Lulú Ramos, PAULA [address] [place] [address] Tool And Die Repair Family Medicine 07/22/20 Couples Therapist Relationship Specialty Start Date End Date Claudine Durán MD [address] [facility] [place] [address] PCP - General Internal Medicine 03/02/16 Will Hurley [address] [place] [place] [address] Referring Rheumatology 04/09/18 Gold Colón, wedding cake designerTool And Die Repair Internal Medicine 07/22/20 12/20/21 Lulú Ramos, RN [address] [place] [address] Tool And Die Repair Family Medicine 07/22/20 Couples Therapist Relationship Specialty Start Date End Date Claudine Durán MD [address] [facility] [place] [address] PCP - General Internal Medicine 03/02/16 Will Hurley [facility] [address] [facility] [place] [address] Referring Rheumatology 04/09/18 Lulú Ramos, RN [address] [place] [address] Tool And Die Repair Family Medicine 07/22/20 Couples Therapist Relationship Specialty Start Date End Date Claudine Durán MD [address] [facility] [place] [address] PCP - General Internal Medicine 03/02/16 Will Hurley [facility] [address] [facility] [place] [address] Referring Rheumatology 04/09/18 Lulú Ramos, RN [address] [place] [address] Tool And Die Repair Family Medicine 07/22/20 Couples Therapist Relationship Specialty Start Date End Date Claudine Durán MD [address] [facility] [place] [address] PCP - General Internal Medicine 03/02/16 Will Hurley [address] [facility] [place], [place] [address] Referring Rheumatology 04/09/18 Lulú Ramos, RN [address] [place] [address] Tool And Die Repair Family Medicine 07/22/20 Couples Therapist Relationship Specialty Start Date End Date Claudine Durán MD [address] [facility], [place] [address] PCP - General Internal Medicine 03/02/16 Will Hurley [facility] N [facility] [place] [address] Referring Rheumatology 04/09/18 Lulú Ramos, RN [address] [place] [address] Tool And Die Repair Family Medicine 07/22/20 Couples Therapist Relationship Specialty Start Date End Date Claudine Durán MD [address] [facility] [place] [address] PCP - General Internal Medicine 03/02/16 Will Hurley [facility] N [facility] [place] [address] Referring Rheumatology 04/09/18 Lulú Ramos, PAULA [address] [place] [address] Tool And Die Repair Family Medicine 12/20/21 Couples Therapist Relationship Specialty Start Date End Date Claudine Durán MD [address] [facility] [place] [address] PCP - General Internal Medicine 03/02/16 Will Hurley [facility] N [facility] [place] [address] Referring Rheumatology 04/09/18 Lulú Ramos, RN [address] [facility] [address] Tool And Die Repair Family Medicine 12/20/21 Couples Therapist Relationship Specialty Start Date End Date Claudine Durán MD [address] [facility] [place] [address] PCP - General Internal Medicine 03/02/16 Will Hurley [facility] N [facility] [place] [address] Referring Rheumatology 04/09/18 Lulú Ramos, PAULA [address] [facility] [address] Tool And Die Repair Family Medicine 12/20/21 Couples Therapist Relationship Specialty Start Date End Date Claudine Durán MD [address] [facility] [place] [address] PCP - General Internal Medicine 03/02/16 Will Hurley [address] [facility] [address] Referring Rheumatology 04/09/18 Lulú Ramos RN [address] [facility] [address] Tool And Die Repair Family Medicine 12/20/21 Couples Therapist Relationship Specialty Start Date End Date Claudine Durán MD [address] [facility] [place] [address] PCP - General Internal Medicine 03/02/16 Will Hurley [facility] N [facility] [place] [address] Referring Rheumatology 04/09/18 Lulú Ramos, PAULA [address] [facility] [address] Tool And Die Repair Family Medicine 12/20/21 Couples Therapist Relationship Specialty Start Date End Date Claudine Durán MD [address] [facility] [place] [address] PCP - General Internal Medicine 03/02/16 Will Hurley [address] [place] [address] Referring Rheumatology 04/09/18 Lulú Ramos, RN [address] [place] [address] Tool And Die Repair Family Medicine 12/20/21 Couples Therapist Relationship Specialty Start Date End Date Claudine Durán MD [address] [facility] [place] [address] PCP - General Internal Medicine 03/02/16 Will Hurley [facility] [place] [address] Referring Rheumatology 04/09/18 Lulú Ramos, APULA [address] [place] [address] Tool And Die Repair Family Medicine 12/20/21 Couples Therapist Relationship Specialty Start Date End Date Claudine Durán MD [address] [facility] [place] [address] PCP - General Internal Medicine 03/02/16 Will Hurley [facility] [place] [address] Referring Rheumatology 04/09/18 Lulú Ramos, PAULA [address] [place] [address] Tool And Die Repair Family Medicine 12/20/21 Couples Therapist Relationship Specialty Start Date End Date Claudine Durán MD [address] [facility] [place] [address] PCP - General Internal Medicine 03/02/16 Will Hurley [address] [facility] [place] [address] Referring Rheumatology 04/09/18 Lulú Ramos, PAULA [address] [place], [place] [address] Tool And Die Repair Family Medicine 12/20/21 Couples Therapist Relationship Specialty Start Date End Date Claudine Durán MD [address] [facility] [place] [address] PCP - General Internal Medicine 03/02/16 Will Hurley [facility] [place] [address] Referring Rheumatology 04/09/18 Lulú Ramos, PAULA [address] [place] [address] Tool And Die Repair Family Medicine 12/20/21 Couples Therapist Relationship Specialty Start Date End Date Claudine Durán MD [address] [facility], [place] [address] PCP - General Internal Medicine 03/02/16 Will Hurley [facility] N [facility] [place] [address] Referring Rheumatology 04/09/18 Ilda Miller RN [address] [place] [address] Tool And Die Repair 07/27/22 Couples Therapist Relationship Specialty Start Date End Date Claudine Durán MD [address] [facility], [place] [address] PCP - General Internal Medicine 03/02/16 Will Hurley [facility] N [facility] [place] [address] Referring Rheumatology 04/09/18 Ilda Miller, RN [address] [facility] [address] Tool And Die Repair 07/27/22 Couples Therapist Relationship Specialty Start Date End Date Claudine Durán MD [address] [place] [address] PCP - General Internal Medicine 03/02/16 Will Hurley [address] [facility] [place] [address] Referring Rheumatology 04/09/18 Ilda Miller RN [address] [place] [address] Tool And Die Repair 07/27/22 Couples Therapist Relationship Specialty Start Date End Date Claudine Durán MD [address] [place] [address] PCP - General Internal Medicine 03/02/16 Will Hurley [address] [facility] [place] [address] Referring Rheumatology 04/09/18 Ilda Miller RN [address] [facility] [address] Tool And Die Repair 07/27/22 Couples Therapist Relationship Specialty Start Date End Date Claudine Durán MD [address] [place] [address] PCP - General Internal Medicine 03/02/16 Will Hurley [address] [facility] [place] [address] Referring Rheumatology 04/09/18 Ilda Miller RN [address] [facility] [address] Tool And Die Repair 07/27/22 Couples Therapist Relationship Specialty Start Date End Date Claudine Durán MD [address] [place] [address] PCP - General Internal Medicine 03/02/16 Will Hurley [address] [facility] [place] [address] Referring Rheumatology 04/09/18 Ilda Miller, RN [address] [place] [address] [employer] 07/27/22 Couples Therapist Relationship Specialty Start Date End Date Claudine Durán MD [address] [place], [place] 572131 PCP - General Internal Medicine 03/02/16 Will Hurley [address] [facility]ENTERDesha[facility] [place], [place] [address]83 Referring Rheumatology 04/09/18 Ilda Miller, PAULA [address] [place] [address] [employer]air 07/27/22 Couples Therapist Relationship Specialty Start Date End Date Claudine Durán MD [address] [place], [place] 413041 PCP - General Internal Medicine 03/02/16 Will Hurley [address] [facility] [address] Referring Rheumatology 04/09/18 Ilda Miller RN [address] [place] [address] [employer] 07/27/22 Couples Therapist Relationship Specialty Start Date End Date Claudine Durán MD [address] [facility] [place] [address] PCP - General Internal Medicine 03/02/16 Will Hurley [address] [facility] [place] [address] Referring Rheumatology 04/09/18 Ilda Millre, RN [address] [place] [address] [employer] 07/27/22 Couples Therapist Relationship Specialty Start Date End Date Claudine Durán MD [address] [place] [address] PCP - General Internal Medicine 03/02/16 Will Hurley [address] [place] [address] Referring Rheumatology 04/09/18 Ilda Miller, RN [address] [place] [address] [employer] 07/27/22 Couples Therapist Relationship Specialty Start Date End Date Claudine Durán MD [address] [place] [address] PCP - General Internal Medicine 03/02/16 Will Hurley [address] [facility] [place] [address] Referring Rheumatology 04/09/18 Ilda Miller, PAULA [address] [place] [address] [employer] 07/27/22 Couples Therapist Relationship Specialty Start Date End Date Claudine Durán MD [address] [facility], [place] [address]101 PCP - General Internal Medicine 03/02/16 Will Hruley [address] [place] [address] Referring Rheumatology 04/09/18 Ilda Miller, RN [address] [place] [address] [employer] 07/27/22 Couples Therapist Relationship Specialty Start Date End Date Claudine Durán MD [address] [place], [place] 355181 PCP - General Internal Medicine 03/02/16 Will Hurley [address] [facility] [place] [address] Referring Rheumatology 04/09/18 Lulú Ramos, PAULA [address] [place] [address] [employer] Family Medicine 12/20/2107/26 Couples Therapist Relationship Specialty Start Date End Date Cluadine Durán MD [address] [place], [place] 480581 PCP - General Internal Medicine 03/02/16 Will Hurley [address] [facility] [place] [id number] Referring Rheumatology 04/09/18 Ilda Miller, PAULA [address] [place], [place] 4822131 [employer] 07/27/22 Team Status: Active Member Role Status Dates Dr. Claudine Durán MD Family Provider Active Dr. Claudine Durán MD Primary Care Provider Active Team Status: Inactive Member Role Status Dates Dr. Claudine Durán MD Primary Care Provider Active Dr. Bob Elias DO Emergency Provider Active Couples Therapist Relationship Specialty Start Date End Date Claudine Durán MD [address] [place] [address] PCP - General Internal Medicine 03/02/16 Will Hurley [address] [place] [address] Referring Rheumatology 04/09/18 Ilda Miller, PAULA [address] [place], [place] [id number] [employer] 07/27/22 Team Status: Inactive Member Role Status Dates Dr. Claudine Durán MD Primary Care Provider Active Dr. Bob Elias DO Attending Provider, Emergency P ed Active Team Status: Active Member Role Status Dates Dr. Claudine Durán MD Primary Care Provider Active Dr. Martín Cornejo DO Emergency Provider Active Dr. Laine Veras MD Admit Provider, Attending Provid er Active Couples Therapist Relationship Specialty Start Date End Date Claudine Durán MD [address] [place] [address] PCP - General Internal Medicine 03/02/16 Will Hurley [address] [place] [address] Referring Rheumatology 04/09/18 Ilda Miller, PAULA [address] [place], [place] [id number] [employer] 07/27/22 Lynne Maynard, wedding cake designer Can Dryer 03/26/23 Team Status: Active Member Role Status [...] Dr. Alisa Mathew MD Attending Provider Active Couples Therapist Relationship Specialty Start Date End Date Claudine Durán MD [address] [place] [address] PCP - General Internal Medicine 03/02/16 Will Hurley [address] [facility], [place] [address]93 Referring Rheumatology 04/09/18 Ilda Miller RN [address] [place] [address] [employer] 07/27/22 Lynne Maynard, wedding cake designer Can Dryer 03/26/23 Couples Therapist Relationship Specialty Start Date End Date Claudine Durán MD [address] [place] [address] PCP - General Internal Medicine 03/02/16 Will Hurley [address] [facility]ENTERDes[facility] [place] [address] Referring Rheumatology 04/09/18 Ilda Miller RN [address] [place] [address] Tool [employer] Die [employer] 07/27/22 Lynne Maynard, wedding cake designer Can Dryer 03/26/23 Team Status: Active Member Role Status [...] MD Primary Care Provider Active Dr. Martín Corneoj , Emergency Provider Active Dr. Laine Veras [...] , DO Other Provider Active Rosalina Herrera [employer] TRA[employer] ACCESSORIES SALESPERSON, TOY TRAINS [employer] ACCESSORIES SALESPERSON-C Other Provider Active Team Status: Active Member [...] , DO Other Provider Active Rosalina Sharon [employer] TRA[employer] ACC[employer] SALESPERSON, TOY TRAINS AND ACCESSORIES SALESPERSON-C Other Provider Active Team Status: Inactive Member [...] , DO Other Provider Active Rosalina Herrera [employer] TRA[employer] ACC[employer] SALESPERSON, TOY TRAINS AND ACCESSORIES SALESPERSON-C Other Provider Active Team Status: Active Member [...] , DO Other Provider Active Rosalina Herrera [employer] TRAINS [employer] ACC[employer] SALESPERSON, TOY TRAINS AND ACCESSORIES SALESPERSON-C Other Provider Active Team Status: Active Member [...] MD Admit Provider, Attending Provid er Active Couples Therapist Relationship Specialty Start Date End Date Claudine Durán MD [address] [place] [address] PCP - General Internal Medicine 03/02/16 Will Hurley [address] [place], [place] 35[address]93 Referring Rheumatology 04/09/18 Ilda Miller RN [address] [place], [place] [id number] [employer] 07/27/22 Team Status: Active Member Role Status Dates Dr. Claudine Durán MD Primary Care Provider Active Zaynab NOLEN MD Attending Provider Active Team Status: Inactive Member Role Status Dates Dr. Claudine Durán MD Primary Care Provider Active Zaynab NOLEN MD Attending Provider Active Couples Therapist Relationship Specialty Start Date End Date Claudine Durán MD [address] [place] [address] PCP - General Internal Medicine 03/02/16 Will Hurley [address] [facility], [place] 5[address]13 Referring Rheumatology 04/09/18 Ilda Miller RN [address] [place] [address] [employer] 07/27/22 Team Status: Inactive Member Role Status Dates Dr. Claudine Durán MD Primary Care Provider Active Fadia Pizarro [employer] TRAINS [employer] ACCESSORIES SALESPERSON, TOY TRAINS AND ACCESSORIES SALESPERSON-C Attending Provider Active Team Status: Inactive Member Role Status Dates Dr. Claudine Durán MD Primary Care Provider Active Dr. Zaynab Pina MD Attending Provider Active Couples Therapist Relationship Specialty Start Date End Date Claudine Durán MD [address] [facility] [place] [address] PCP - General Internal Medicine 03/02/16 Will Hurley [address] [place] [address] Referring Rheumatology 04/09/18 Ilda iMller, PAULA [address] [place] [address] [employer] 07/27/22 Couples Therapist Relationship Specialty Start Date End Date Claudine Durán MD [address] [place] [address] PCP - General Internal Medicine 03/02/16 Will Hurley [address] [facility]ANDes[facility] [place], [place] [address]13 Referring Rheumatology 04/09/18 Ilda Miller RN [address] [place] [address] [employer] 07/27/22 Couples Therapist Relationship Specialty Start Date End Date Claudine Durán MD [address] [place], [place] 566831 PCP - General Internal Medicine 03/02/16 Will Hurley [address] [facility]ITAL[facility] [place], [place] 26[address] Referring Rheumatology 04/09/18 Ilda Miller, PAULA [address] [place] [address] [employer] 07/27/22 Couples Therapist Relationship Specialty Start Date End Date Claudine Durán MD [address] [place], [place] 197371 PCP - General Internal Medicine 03/02/16 Will Hurley [address] [facility]ITALDAYANA [facility] [place] [address] Referring Rheumatology 04/09/18 Ilda Miller, RN [address] [place] [address] Tool [employer] 07/27/22 Couples Therapist Relationship Specialty Start Date End Date Claudine Durán MD [address] [place], [place] 554931 PCP - General Internal Medicine 03/02/16 Will Hurley [address] [facility] [place] [address] Referring Rheumatology 04/09/18 Ilda Miller RN [address] [place] [address] Tool [employer] Die [employer] 07/27/22 Couples Therapist Relationship Specialty Start Date End Date Claudine Durán MD [address] [place] [address] PCP - General Internal Medicine 03/02/16 Will Hurley [address] [facility] [place] [address] Referring Rheumatology 04/09/18 Ilda Miller, PAULA [address] [place] [address] [employer] Die [employer] 07/27/22 Couples Therapist Relationship Specialty Start Date End Date Claudine Durán MD [address] [place] [address] PCP - General Internal Medicine 03/02/16 Will Hurley [address] [place] [address] Referring Rheumatology 04/09/18 Ilda Miller, RN [address] [place] [address] [employer] 07/27/22 Couples Therapist Relationship Specialty Start Date End Date Claudine Durán MD [address] [facility] [place], [place] 20[address]11 PCP - General Internal Medicine 03/02/16 Will Hurley [address] [place] [address] Referring Rheumatology 04/09/18 Ilda Miller, PAULA [address] [place] [address] [employer] 07/27/22 Couples Therapist Relationship Specialty Start Date End Date Claudine Durán MD [address] [place] [address] PCP - General Internal Medicine 03/02/16 Will Hurley [address] [facility] [place] [address] Referring Rheumatology 04/09/18 Ilda Miller, PAULA [address] [place] [address] [employer] 07/27/22 Couples Therapist Relationship Specialty Start Date End Date Claudine Durán MD [address] [place] [address] PCP - General Internal Medicine 03/02/16 Will Hurley [address] [facility] [place], [place] 67[address]73 Referring Rheumatology 04/09/18 Idla Miller, RN [address] [place] [address] Tool [employer] Die [employer] 07/27/22 Couples Therapist Relationship Specialty Start Date End Date Claudine Durán MD [address] [facility] [place], [place] 678481 PCP - General Internal Medicine 03/02/16 Will Hurley [address] [facility] [place] [address] Referring Rheumatology 04/09/18 Ilda Miller RN [address] [place] [address] Tool [employer] Die [employer]air 07/27/22 Couples Therapist Relationship Specialty Start Date End Date Claudine Durán MD [address] [place], [place] 419231 PCP - General Internal Medicine 03/02/16 Will Hurley [address] [facility] [place], [place] 418283 Referring Rheumatology 04/09/18 Ilda Miller, PAULA [address] [place] [address] Tool [employer] Die [employer] 07/27/22 Couples Therapist Relationship Specialty Start Date End Date Claudine Durán MD [address] [facility] [place], [place] [address]151 PCP - General Internal Medicine 03/02/16 Will Hurley [address] [facility] [place] [address] Referring Rheumatology 04/09/18 Ilda Miller, RN [address] [place] [address] [employer] 07/27/22 Couples Therapist Relationship Specialty Start Date End Date Claudine Durán MD [address] [facility] [place] [address] PCP - General Internal Medicine 03/02/16 Will Hurley [address] [facility]ENTER[facility] [place] [address] Referring Rheumatology 04/09/18 Ilda Miller RN [address] [place] [address] [employer] 07/27/22 Couples Therapist Relationship Specialty Start Date End Date Claudine Durán MD [address] [place] [address] PCP - General Internal Medicine 03/02/16 Will Hurley [address] [facility] [place] [address] Referring Rheumatology 04/09/18 Ilda Miller, PAULA [address] [place] [address] [employer] 07/27/22 Couples Therapist Relationship Specialty Start Date End Date Claudine Durán MD [address] [place], [place] 859471 PCP - General Internal Medicine 03/02/16 Will Hurley [address] [facility] [place] [address] Referring Rheumatology 04/09/18 Ilda Miller, PAULA [address] [facility] [address] Tool [employer] 07/27/22 Couples Therapist Relationship Specialty Start Date End Date Claudine Durán MD [address] [facility] [place] [address] PCP - General Internal Medicine 03/02/16 Will Hurley [address] [facility] [place] [address] Referring Rheumatology 04/09/18 Ilda Miller RN [address] [place] [address] Tool [employer] Die [employer] 07/27/22 Couples Therapist Relationship Specialty Start Date End Date Claudine Durán MD [address] [facility] [place] [address] PCP - General Internal Medicine 03/02/16 Will Hurley [address] [facility] [place] [address] Referring Rheumatology 04/09/18 Ilda Miller RN [address] [place] [address] Tool [employer] Die [employer] 07/27/22 Couples Therapist Relationship Specialty Start Date End Date Claudine Durán MD [address] [facility] [place] [address] PCP - General Internal Medicine 03/02/16 Will Hurley [address] [facility] [place] [address] Referring Rheumatology 04/09/18 Ilda Miller RN [address] [facility] [address] [employer] 07/27/22 Couples Therapist Relationship Specialty Start Date End Date Claudine Durná MD [address] [facility] [place] [address] PCP - General Internal Medicine 03/02/16 Will Hurley [address] [facility] [place] [address] Referring Rheumatology 04/09/18 Ilda Miller RN [address] [facility] [address] Tool [employer] Die [employer]air 07/27/22 Couples Therapist Relationship Specialty Start Date End Date Claudine Durán MD [address] [place] [address] PCP - General Internal Medicine 03/02/16 Will Hurley [address] [facility] [place] [address] Referring Rheumatology 04/09/18 Ilda Miller RN [address] [facility] [address] [employer] Die [employer] 07/27/22 Couples Therapist Relationship Specialty Start Date End Date Claudine Durán MD [address] [place] [address] PCP - General Internal Medicine 03/02/16 Will Hurley [address] [facility] [place] [address] Referring Rheumatology 04/09/18 Ilda Miller RN [address] [facility] [address] Tool [employer] 07/27/22 Couples Therapist Relationship Specialty Start Date End Date Claudine Durán MD [address] [place], [place] 345221 PCP - General Internal Medicine 03/02/16 Will Hurley [address] [facility]Des[facility] [place], [place] 503933 Referring Rheumatology 04/09/18 Ilda Miller, RN [address] [place] [address] [employer] 07/27/22 Couples Therapist Relationship Specialty Start Date End Date Claudine Durán MD [address] [place], [place] 183511 PCP - General Internal Medicine 03/02/16 Will Hurley [address] [facility]ENTERDes[facility] [place], [place] 481413 Referring Rheumatology 04/09/18 Ilda Miller, PAULA [address] [place] [address] Tool [employer] 07/27/22 Couples Therapist Relationship Specialty Start Date End Date Claudine Durán MD [address] [place], [place] 877091 PCP - General Internal Medicine 03/02/16 Will Hurley [address] [facility] [place] [address] Referring Rheumatology 04/09/18 Ilda Miller RN [address] [facility] [address] Tool And Die [employer]air 07/27/22 Couples Therapist Relationship Specialty Start Date End Date Claudine Durán MD [address] [facility], [place] 383571 PCP - General Internal Medicine 03/02/16 Will Hurley [address] [facility] [place], [place] 357593 Referring Rheumatology 04/09/18 Lulú Ramos RN [address] [place] [address] [employer] Family Medicine 12/20/21 Couples Therapist Relationship Specialty Start Date End Date Claudine Durán MD [address] [facility] [place] [address] PCP - General Internal Medicine 03/02/16 Will Hurley [address] [facility] [place] [address] Referring Rheumatology 04/09/18 Ilda Miller RN [address] [place] [address] Tool [employer] 07/27/22 Couples Therapist Relationship Specialty Start Date End Date Claudine Durán MD [address] [facility] [address] PCP - General Internal Medicine 03/02/16 Will Hurley [address] [facility] [address] Referring Rheumatology 04/09/18 Ilda Miller RN [address] [place], [place] 0700131 [employer] 07/27/22 Couples Therapist Relationship Specialty Start Date End Date Claudine Durán MD [address] [place] [address] PCP - General Internal Medicine 03/02/16 Will Hurley [address] [facility] [address] Referring Rheumatology 04/09/18 Ilda Miller, PAULA [address] [place] [address] Tool [employer] Die [employer] 07/27/22 Couples Therapist Relationship Specialty Start Date End Date Claudine Durán MD [address] [place] [address] PCP - General Internal Medicine 03/02/16 Will Hurley [address] [facility] [place] [address] Referring Rheumatology 04/09/18 Ilda Miller, PAULA [address] [place] [address] [employer] 07/27/22 Couples Therapist Relationship Specialty Start Date End Date Claudine Durán MD [address] [place] [address] PCP - General Internal Medicine 03/02/16 Will Hurley [address] [facility] [place] [address] Referring Rheumatology 04/09/18 Ilda Miller RN [address] [place] [address] Tool [employer] Die [employer]air 07/27/22 Couples Therapist Relationship Specialty Start Date End Date Claudine Durán MD [address] [facility] [place] [address] PCP - General Internal Medicine 03/02/16 Will Hurley [address] [facility] [place] [address] Referring Rheumatology 04/09/18 Ilda Miller, PAULA [address] [place], [place] 0224431 [employer] 07/27/22 Jimbo Swanson APRN.AMUSEMENT RIDE OPERATOR [address] [place] [address] Coal Passer Internal Medicine 01/28/24 Twyla Cuevas APRN.COAT OPERATOR INSULATOR [address] [place] [address] Coal Passer Internal Medicine 01/28/24 Couples Therapist Relationship Specialty Start Date End Date Claudine Durán MD [address] [place] [address] PCP - General Internal Medicine 03/02/16 Will Hurley [address] [facility] [place] [address] Referring Rheumatology 04/09/18 Ilda Miller, PAULA [address] [place] [address] [employer] 07/27/22 Jimbo Swanson APRN.AMUSEMENT RIDE OPERATOR [address] [place] [address] Coal Passer Internal Medicine 01/28/24 Twyla Cuevas APRN.COAT OPERATOR INSULATOR [address] [place] [address] Coal Passer Internal Medicine 01/28/24 Couples Therapist Relationship Specialty Start Date End Date Claudine Durán MD [address] [place] [address] PCP - General Internal Medicine 03/02/16 Will Hurley [address] [place] [address] Referring Rheumatology 04/09/18 Jimbo Swanson APRN.AMUSEMENT RIDE OPERATOR [address] [place] [address] Coal Passer Internal Medicine 01/28/24 Twyla Cuevas APRN.COAT OPERATOR INSULATOR [address] [place] [address] Coal Passer Internal Medicine 01/28/24 Couples Therapist Relationship Specialty Start Date End Date Claudine Durán MD [address] [place] [address] PCP - General Internal Medicine 03/02/16 Will Hurley [address] [place] [address] Referring Rheumatology 04/09/18 Jimbo Swanson APRN.AMUSEMENT RIDE OPERATOR [address] [place] [address] Coal Passer Internal Medicine 01/28/24 Twyla Cuevas APRN.COAT OPERATOR INSULATOR [address] [place] [address] Coal Passer Internal Medicine 01/28/24 Couples Therapist Relationship Specialty Start Date End Date Claudine Durán MD [address] [place] [address] PCP - General Internal Medicine 03/02/16 Will Hurley [address] [place] [address] Referring Rheumatology 04/09/18 Jimbo Swanson, DIGITAL COMMUNICATIONS MANAGER.AMUSEMENT RIDE OPERATOR [address] [place] [address] Coal Passer Internal Medicine 01/28/24 Twyla Cuevas DIGITAL COMMUNICATIONS MANAGER.COAT OPERATOR INSULATOR [address] [place] [address] Coal Passer Internal Medicine 01/28/24 Couples Therapist Relationship Specialty Start Date End Date Claudine Durán MD [address] [place] [address] PCP - General Internal Medicine 03/02/16 Will Hurley [address] [place] [address] Referring Rheumatology 04/09/18 Jimbo Swanson, DIGITAL COMMUNICATIONS MANAGER.AMUSEMENT RIDE OPERATOR [address] [place] [address] Coal Passer Internal Medicine 01/28/24 Twyla Cuevas DIGITAL COMMUNICATIONS MANAGER.COAT OPERATOR INSULATOR [address] [place] [address] Coal Passer Internal Medicine 01/28/24 Couples Therapist Relationship Specialty Start Date End Date Claudine Durán MD [address] [place] [address] PCP - General Internal Medicine 03/02/16 Will Hurley [address] [facility] [place] [place] [address] Referring Rheumatology 04/09/18 Jimbo Swanson, DIGITAL COMMUNICATIONS MANAGER.AMUSEMENT RIDE OPERATOR [address] [place] [address] Coal Passer Internal Medicine 01/28/24 Twyla Cuevas DIGITAL COMMUNICATIONS MANAGER.COAT OPERATOR INSULATOR [address] [place] [address] Coal Passer Internal Medicine 01/28/24 Couples Therapist Relationship Specialty Start Date End Date Claudine Durán MD [address] [place] [address] PCP - General Internal Medicine 03/02/16 Will Hurley [address] [facility] [place], [place] [address] Referring Rheumatology 04/09/18 Jimbo Swanson, DIGITAL COMMUNICATIONS MANAGER.AMUSEMENT RIDE OPERATOR [address] [place] [address] Coal Passer Internal Medicine 01/28/24 Twyla Cuevas APRN.COAT OPERATOR INSULATOR [address] [place] [address] Coal Passer Internal Medicine 01/28/24 Couples Therapist Relationship Specialty Start Date End Date Claudine Durán MD [address] [place] [address] PCP - General Internal Medicine 03/02/16 Will Hurley [address] [place] [address] Referring Rheumatology 04/09/18 Jimbo Swanson, CONNIE.AMUSEMENT RIDE OPERATOR [address] [place] [address] Coal Passer Internal Medicine 01/28/24 Twyla Cuevas APRN.COAT OPERATOR INSULATOR [address] [place] [address] Coal Passer Internal Medicine 01/28/24 Couples Therapist Relationship Specialty Start Date End Date Claudine Durán MD [address] [place] [address] PCP - General Internal Medicine 03/02/16 Will Hurley [address] [place] [address] Referring Rheumatology 04/09/18 Jimbo Swanson, DIGITAL COMMUNICATIONS MANAGER.AMUSEMENT RIDE OPERATOR [address] [place] [address] Coal Passer Internal Medicine 01/28/24 Twyla Cuevas APRN.COAT OPERATOR INSULATOR [address] [place] [address] Coal Passer Internal Medicine 01/28/24 Couples Therapist Relationship Specialty Start Date End Date Claudine Durán MD [address] [place] [address] PCP - General Internal Medicine 03/02/16 Will Hurley [address] [place] [facility] [place] [address] Referring Rheumatology 04/09/18 Jimbo Swanson, DIGITAL COMMUNICATIONS MANAGER.AMUSEMENT RIDE OPERATOR [address] [place], [place] [address]377[address] Coal Passer Internal Medicine 01/28/24 Twyla Cuevas DIGITAL COMMUNICATIONS MANAGER.COAT OPERATOR INSULATOR [address] [place] [address] [facility] Internal Medicine 01/28/24 Couples Therapist Relationship Specialty Start Date End Date Claudine Durán MD [address] [place] [address] PCP - General Internal Medicine 03/02/16 Will Hurley [address] [place] [address] Referring Rheumatology 04/09/18 Jimbo Swanson, DIGITAL COMMUNICATIONS MANAGER.AMUSEMENT RIDE OPERATOR [address] [place] [address] Coal Passer Internal Medicine 01/28/24 Twyla Cuevas DIGITAL COMMUNICATIONS MANAGER.COAT OPERATOR INSULATOR [address] [place] [id number] [facility] Internal Medicine 01/28/24 Couples Therapist Relationship Specialty Start Date End Date Claudine Durán MD [address] [place] [address] PCP - General Internal Medicine 03/02/16 Will Hurley [address] [facility] [place] [address] Referring Rheumatology 04/09/18 Jimbo Swanson, CONNIE.AMUSEMENT RIDE OPERATOR [address] [facility] [place] [address] [facility] Internal Medicine 01/28/24 Twyla Cuevas DIGITAL COMMUNICATIONS MANAGER.COAT OPERATOR INSULATOR [address] [place] [address] [facility] Internal Medicine 01/28/24 Couples Therapist Relationship Specialty Start Date End Date Claudine Durán MD [address] [place] [address] PCP - General Internal Medicine 03/02/16 Will Hurley [address] [facility] [place] [address] Referring Rheumatology 04/09/18 Jimbo Swanson, DIGITAL COMMUNICATIONS MANAGER.AMUSEMENT RIDE OPERATOR [address] [place] [address] [facility] Internal Medicine 01/28/24 Twyla Cuevas DIGITAL COMMUNICATIONS MANAGER.COAT OPERATOR INSULATOR [address] [place] [address] [facility] Internal Medicine 01/28/24 Couples Therapist Relationship Specialty Start Date End Date Claudine Durán MD [address] [place] [address] PCP - General Internal Medicine 03/02/16 Will Hurley [address] [place] [address] Referring Rheumatology 04/09/18 Jimbo Swanson APRN.AMUSEMENT RIDE OPERATOR [address] [place] [address] [facility] Internal Medicine 01/28/24 Twyla Cuevas APRN.COAT OPERATOR INSULATOR [address] [place] [address] [facility] Internal Medicine 01/28/24 Couples Therapist Relationship Specialty Start Date End Date Claudine Durán MD [address] [place] [address] PCP - General Internal Medicine 03/02/16 Will Hurley [address] [place] [address] Referring Rheumatology 04/09/18 Jimbo Swanson, DIGITAL COMMUNICATIONS MANAGER.AMUSEMENT RIDE OPERATOR [address] [place] [address] [facility] Internal Medicine 01/28/24 Twyla Cuevas APRN.COAT OPERATOR INSULATOR [address] [place] [address] [facility] Internal Medicine 01/28/24 Couples Therapist Relationship Specialty Start Date End Date Claudine Durán MD [address] [place], [place] 197101 PCP - General Internal Medicine 03/02/16 Will Hurley [address] [place] [address] Referring Rheumatology 04/09/18 Jimbo Swanson, DIGITAL COMMUNICATIONS MANAGER.AMUSEMENT RIDE OPERATOR [address] [place] [address] [facility] Internal Medicine 01/28/24 Twyla Cuevas DIGITAL COMMUNICATIONS MANAGER.COAT OPERATOR INSULATOR [address] [place], [place] 162301 [facility] Internal Medicine 01/28/24 Couples Therapist Relationship Specialty Start Date End Date Claudine Durán MD [address] [place], [place] 907581 PCP - General Internal Medicine 03/02/16 Will Hurley [address] [place] [address] Referring Rheumatology 04/09/18 Jimbo Swanson, DIGITAL COMMUNICATIONS MANAGER.AMUSEMENT RIDE OPERATOR [address] [place] [address] [facility] Internal Medicine 01/28/24 Twyla Cuevas DIGITAL COMMUNICATIONS MANAGER.COAT OPERATOR INSULATOR [address] [place] [address] [facility] Internal Medicine 01/28/24 Bartolome Francis MD [address] [place] [address] Surgeon Cardiac Surg 04/02/24 Juvencio Saeed MD [address] [place], [place] [id number] Primary Staff Physician Cardiology 04/02/24 Couples Therapist Relationship Specialty Start Date End Date Claudine Durán MD [address] [place], [place] 653731 PCP - General Internal Medicine 03/02/16 Will Hurley [address] [place] [facility] [place] 913733 Referring Rheumatology 04/09/18 Jimbo Swanson, DIGITAL COMMUNICATIONS MANAGER.AMUSEMENT RIDE OPERATOR [address] [place], [place] 073521 [facility] Internal Medicine 01/28/24 Twyla Cuevas DIGITAL COMMUNICATIONS MANAGER.COAT OPERATOR INSULATOR [address] [place], [place] 720101 [facility] Internal Medicine 01/28/24 Bartolome Francis MD [address] [place], [place] [id number] Surgeon Cardiac Surg 04/02/24 Juvencio Saeed MD [address] [place], [place] 0467195 Primary Staff Physician Cardiology 04/02/24 Couples Therapist Relationship Specialty Start Date End Date Claudine Durán MD [address] [place], [place] 184011 PCP - General Internal Medicine 03/02/16 Will Hurley [address] [facility] [place] 894273 Referring Rheumatology 04/09/18 Jimbo Swanson, DIGITAL COMMUNICATIONS MANAGER.AMUSEMENT RIDE OPERATOR [address] [place], [place] 948291 [facility] Internal Medicine 01/28/24 Twyla Cuevas DIGITAL COMMUNICATIONS MANAGER.COAT OPERATOR INSULATOR [address] [place] [address] [facility] Internal Medicine 01/28/24 Bartolome Francis MD [address] [place], [place] 2863195 Surgeon Cardiac Surg 04/02/24 Juvencio Saeed MD [address] [place], [place] 1826195 Primary Staff Physician Cardiology 04/02/24 Couples Therapist Relationship Specialty Start Date End Date Claudine Durán [place] [address] [place] [address] PCP - General Internal Medicine 03/02/16 Will Hurley [address] [place] [address] Referring Rheumatology 04/09/18 Jimbo Swanson APRN.AMUSEMENT RIDE OPERATOR [address] [place] [address] [facility] Internal Medicine 01/28/24 Twyla Cuevas APRN.COAT OPERATOR INSULATOR [address] [place] [address] [facility] Internal Medicine 01/28/24 Bartolome Francis MD [address] [place], [place] 6777595 Surgeon Cardiac Surg 04/02/24 Juvencio Saeed MD [address] [place], [place] 1810995 Primary Staff Physician Cardiology 04/02/24 Couples Therapist Relationship Specialty Start Date End Date Claudine Durán MD [address] [place], [place] 730691 PCP - General Internal Medicine 03/02/16 Will Hurley [address] [place], [place] [id number] Referring Rheumatology 04/09/18 Jimbo Swanson APRN.AMUSEMENT RIDE OPERATOR [address] [place], [place] [id number] [facility] Internal Medicine 01/28/24 Twyla Cuevas APRN.COAT OPERATOR INSULATOR [address] [place], [place] [id number] [facility] Internal Medicine 01/28/24 Bartolome Francis MD [address] [place], [place] 8694495 Surgeon Cardiac Surg 04/02/24 Juvencio Saeed MD [address] [place], [place] 2985495 Primary Staff Physician Cardiology 04/02/24 Pili Benitez, wedding cake designerTool And Die Repair 04/11/24 Couples Therapist Relationship Specialty Start Date End Date Claudine Durán MD [address] [place], [place] 340281 PCP - General Internal Medicine 03/02/16 Will Hurley [address] [place], [place] 896983 Referring Rheumatology 04/09/18 Jimbo Swanson, CONNIE.AMUSEMENT RIDE OPERATOR [address] [place] [address] [facility] Internal Medicine 01/28/24 Twyla Cuevas APRN.COAT OPERATOR INSULATOR [address] [place] [address] [facility] Internal Medicine 01/28/24 Bartolome Francis MD [address] [place], [place] 6699895 Surgeon Cardiac Surg 04/02/24 Juvencio Saeed MD [address] [place], [place] 8587195 Primary Staff Physician Cardiology 04/02/24 Pili Benitez, wedding cake designerTool And Die Repair 04/11/24 Couples Therapist Relationship Specialty Start Date End Date Claudine Durán MD [address] [place] [address] PCP - General Internal Medicine 03/02/16 Will Hurley [address] [place], [place] 102583 Referring Rheumatology 04/09/18 Jimbo Swanson, DIGITAL COMMUNICATIONS MANAGER.AMUSEMENT RIDE OPERATOR [address] [place] [address] [facility] Internal Medicine 01/28/24 Twyla Cuevas APRN.COAT OPERATOR INSULATOR [address] [place] [address] [facility] Internal Medicine 01/28/24 Bartolome Francis MD [address] [place] [address] Surgeon Cardiac Surg 04/02/24 Juvencio Saeed MD [address] [place], [place] 1203295 Primary Staff Physician Cardiology 04/02/24 Pili Benitez, wedding cake designerTool And Die Repair 04/11/24 Couples Therapist Relationship Specialty Start Date End Date Claudine Durán MD [address] [place] [address] PCP - General Internal Medicine 03/02/16 Will Hurley [address] [place] [address] Referring Rheumatology 04/09/18 Jimbo Swanson, CONNIE.AMUSEMENT RIDE OPERATOR [address] [place] [address] [facility] Internal Medicine 01/28/24 Twyla Cuevas APRN.COAT OPERATOR INSULATOR [address] [place] [address] [facility] Internal Medicine 01/28/24 Bartolome Francis MD [address] [facility] [place] [address] Surgeon Cardiac Surg 04/02/24 Juvencio Saeed MD [address] [place] [address] Primary Staff Physician Cardiology 04/02/24 Pili Benitez, wedding cake designerTool And Die Repair 04/11/24 Couples Therapist Relationship Specialty Start Date End Date Claudine Durán MD [address] [place] [address] PCP - General Internal Medicine 03/02/16 Will Hurley [address] [place] [address] Referring Rheumatology 04/09/18 Jimbo Swanson, DIGITAL COMMUNICATIONS MANAGER.AMUSEMENT RIDE OPERATOR [address] [place], [place] 943251 [facility] Internal Medicine 01/28/24 Twyla Cuevas DIGITAL COMMUNICATIONS MANAGER.COAT OPERATOR INSULATOR [address] [place], [place] 128331 [facility] Internal Medicine 01/28/24 Bartolome Francis MD [address] [place], [place] 5623895 Surgeon Cardiac Surg 04/02/24 Juvencio Saeed MD [address] [place], [place] 5033195 Primary Staff Physician Cardiology 04/02/24 Pili Benitez, wedding cake designerTool And Die Repair 04/11/24 Couples Therapist Relationship Specialty Start Date End Date Claudine Durán MD [address] [facility] 166791 PCP - General Internal Medicine 03/02/16 Will Hurley [address] [place] [address] Referring Rheumatology 04/09/18 Jimbo Swanson, DIGITAL COMMUNICATIONS MANAGER.AMUSEMENT RIDE OPERATOR [address] [place], [place] 942651 [facility] Internal Medicine 01/28/24 Twyla Cuevas APRN.COAT OPERATOR INSULATOR [address] [place] [address] [facility] Internal Medicine 01/28/24 Bartolome Francis MD [address] [place], [place] 37317[address] Surgeon Cardiac Surg 04/02/24 Juvencio Saeed MD [address] [place], [place] 7253395 Primary Staff Physician Cardiology 04/02/24 Pili Benitez, wedding cake designerTool And Die Repair 04/11/24 Couples Therapist Relationship Specialty Start Date End Date Claudine Durán MD [address] [place] [address] PCP - General Internal Medicine 03/02/16 Will Hurley [address] [place], [place] 454283 Referring Rheumatology 04/09/18 Jimbo Swanson APRN.AMUSEMENT RIDE OPERATOR [address] [place] [address] [facility] Internal Medicine 01/28/24 Twyla Cuevas APRN.COAT OPERATOR INSULATOR [address] [place] [address] [facility] Internal Medicine 01/28/24 Bartolome Francis MD [address] [place] [address] Surgeon Cardiac Surg 04/02/24 Juvencio Saeed MD [address] [place] [address] Primary Staff Physician Cardiology 04/02/24 Pili Benitez, wedding cake designerTool And Die Repair 04/11/24 Couples Therapist Relationship Specialty Start Date End Date Claudine Durán MD [address] [place] [address] PCP - General Internal Medicine 03/02/16 Will Hurley [address] [place] [address] Referring Rheumatology 04/09/18 Jimbo Swanson, DIGITAL COMMUNICATIONS MANAGER.AMUSEMENT RIDE OPERATOR [address] [place], [place] 144401 [facility] Internal Medicine 01/28/24 Twyla Cuevas, DIGITAL COMMUNICATIONS MANAGER.COAT OPERATOR INSULATOR [address] [place] [address] [facility] Internal Medicine 01/28/24 Bartolome Francis MD [address] [facility] [place] 6849495 Surgeon Cardiac Surg 04/02/24 Juvencio Saeed MD [address] [facility] [place] 7327595 Primary Staff Physician Cardiology 04/02/24 Pili Benitez, wedding cake designerTool And Die Repair 04/11/24 Couples Therapist Relationship Specialty Start Date End Date Claudine Durán MD [address] [place] [address] PCP - General Internal Medicine 03/02/16 Will Hurley [address] [facility] [place] [address] Referring Rheumatology 04/09/18 Jimbo Swanson APRN.AMUSEMENT RIDE OPERATOR [address] [place] [address] [facility] Internal Medicine 01/28/24 Twyla Cuevas APRN.COAT OPERATOR INSULATOR [address] [place] [address] [facility] Internal Medicine 01/28/24 Bartolome Francis MD [address] [place], [place] 8320295 Surgeon Cardiac Surg 04/02/24 Juvencio Saeed MD [address] [place], [place] 9646795 Primary Staff Physician Cardiology 04/02/24 Pili Benitez, wedding cake designerTool And Die Repair 04/11/24 Couples Therapist Relationship Specialty Start Date End Date Claudine Durán MD [address] [place] [address] PCP - General Internal Medicine 03/02/16 Will Hurley [address] [facility] [place] [address] Referring Rheumatology 04/09/18 Jimbo Swanson APRN.AMUSEMENT RIDE OPERATOR [address] [place] [address] [facility] Internal Medicine 01/28/24 Twyla Cuevas APRN.COAT OPERATOR INSULATOR [address] [place] [address] [facility] Internal Medicine 01/28/24 Bartolome Francis MD [address] [place] [address] Surgeon Cardiac Surg 04/02/24 Juvencio Saeed MD [address] [place] [address] Primary Staff Physician Cardiology 04/02/24 Pili Benitez, wedding cake designerTool And Die Repair 04/11/24 Pili Benitez, wedding cake designer Can Dryer 05/05/24 Couples Therapist Relationship Specialty Start Date End Date Claudine Durán MD [address] [place] [address] PCP - General Internal Medicine 03/02/16 Will Hurley [address] [place], [place] 005453 Referring Rheumatology 04/09/18 Jimbo Swanson APRN.AMUSEMENT RIDE OPERATOR [address] [place] [address] [facility] Internal Medicine 01/28/24 Twyla Cuevas APRN.COAT OPERATOR INSULATOR [address] [place] [address] [facility] Internal Medicine 01/28/24 Bartolome Francis MD [address] [place] [address] Surgeon Cardiac Surg 04/02/24 Juvencio Saeed MD [address] [place] [address] Primary Staff Physician Cardiology 04/02/24 Pili Benitez, wedding cake designerTool And Die Repair 04/11/24 Pili Benitez, wedding cake designer Can Dryer 05/05/24 Couples Therapist Relationship Specialty Start Date End Date Claudine Durán MD [address] [place], [place] 493631 PCP - General Internal Medicine 03/02/16 Will Hurley [address] [place] [address] Referring Rheumatology 04/09/18 Jimbo Swanson APRN.AMUSEMENT RIDE OPERATOR [address] [place], [place] 629101 [facility] Internal Medicine 01/28/24 Twyla Cuevas APRN.COAT OPERATOR INSULATOR [address] [place], [place] 633091 [facility] Internal Medicine 01/28/24 Bartolome Francis MD [address] [place], [place] 9935195 Surgeon Cardiac Surg 04/02/24 Juvencio Saeed MD [address] [place], [place] 8045895 Primary Staff Physician Cardiology 04/02/24 Pili Benitez, wedding cake designerTool And Die Repair 04/11/24 Couples Therapist Relationship Specialty Start Date End Date Claudine Durán MD [address] [place] [address] PCP - General Internal Medicine 03/02/16 Will Hurley [address] [place] [address] Referring Rheumatology 04/09/18 Jimbo Swanson, CONNIE.AMUSEMENT RIDE OPERATOR [address] [place], [place] 508101 [facility] Internal Medicine 01/28/24 Twyla Cuevas APRN.COAT OPERATOR INSULATOR [address] [facility], [place] 248901 [facility] Internal Medicine 01/28/24 05/09/24 Bartolome Francis MD [address] [place], [place] 8513995 Surgeon Cardiac Surg 04/02/24 Juvencio Saeed MD [address] [place], [place] 2146395 Primary Staff Physician Cardiology 04/02/24 Pili Benitez, wedding cake designerTool And Die Repair 04/11/24 Pili Benitez, wedding cake designer Can Dryer 05/05/24 Couples Therapist Relationship Specialty Start Date End Date Claudine Durán MD [address] [place], [place] 562831 PCP - General Internal Medicine 03/02/16 Will Hurley [address] [facility] [place] [address] Referring Rheumatology 04/09/18 Jimbo Swanson, CONNIE.AMUSEMENT RIDE OPERATOR [address] [facility] 701741 [facility] Internal Medicine 01/28/24 Bartolome Francis MD [address] [place] [address] Surgeon Cardiac Surg 04/02/24 Juvencio Saeed MD [address] [place] [address] Primary Staff Physician Cardiology 04/02/24 Pili Benitez, wedding cake designerTool And Die Repair 04/11/24 Pili Benitez, wedding cake designer Can Dryer 05/05/24 Couples Therapist Relationship Specialty Start Date End Date Claudine Durán MD [address] [place], [place] 876481 PCP - General Internal Medicine 03/02/16 Will Hurley [address] [place], [place] 088843 Referring Rheumatology 04/09/18 Jimbo Swanson, CONNIE.AMUSEMENT RIDE OPERATOR [address] [place], [place] 94969691 [facility] Internal Medicine 01/28/24 Bartolome Francis MD [address] [place] [address] Surgeon Cardiac Surg 04/02/24 Juvencio Saeed MD [address] [place] [address] Primary Staff Physician Cardiology 04/02/24 Pili Benitez, wedding cake designerTool And Die Repair 04/11/24 Pili Benitez, wedding cake designer Can Dryer 05/05/24 Twyla Cuevas, DIGITAL COMMUNICATIONS MANAGER.COAT OPERATOR INSULATOR [address] [place], [place] 754251 [facility] Internal Medicine 05/13/24 Couples Therapist Relationship Specialty Start Date End Date Claudine Durán MD [address] [place], [place] 047861 PCP - General Internal Medicine 03/02/16 Will Hurley [address] [place] [address] Referring Rheumatology 04/09/18 Jimbo Swanson, DIGITAL COMMUNICATIONS MANAGER.AMUSEMENT RIDE OPERATOR [address] [place], [place] 345741 [facility] Internal Medicine 01/28/24 Bartolome Francis MD [address] [place], [place] 2617095 Surgeon Cardiac Surg 04/02/24 Juvencio Saeed MD [address] [place], [place] 0360995 Primary Staff Physician Cardiology 04/02/24 Pili Benitez, wedding cake designerTool And Die Repair 04/11/24 Pili Benitez, wedding cake designer Can Dryer 05/05/24 Twyla Cuevas, DIGITAL COMMUNICATIONS MANAGER.COAT OPERATOR INSULATOR [address] [place] [address] [facility] Internal Medicine 05/13/24 Couples Therapist Relationship Specialty Start Date End Date Claudine Durán MD [address] [place], [place] 087571 PCP - General Internal Medicine 03/02/16 Will Hurley [address] [facility] [place] [address] Referring Rheumatology 04/09/18 Jimbo Swanson, DIGITAL COMMUNICATIONS MANAGER.AMUSEMENT RIDE OPERATOR [address] [place] [address] [facility] Internal Medicine 01/28/24 Bartolome Francis MD [address] [facility] [place] 0655995 Surgeon Cardiac Surg 04/02/24 Juvencio Saeed MD [address] [place], [place] 0828695 Primary Staff Physician Cardiology 04/02/24 Pili Benitez, wedding cake designerTool And Die Repair 04/11/24 Pili Benitez, wedding cake designer Can Dryer 05/05/24 Twyla Cuevas, DIGITAL COMMUNICATIONS MANAGER.COAT OPERATOR INSULATOR [address] [place] [address] [facility] Internal Medicine 05/13/24 Couples Therapist Relationship Specialty Start Date End Date Claudine Durán MD [address] [place], [place] 848261 PCP - General Internal Medicine 03/02/16 Will Hurley [address] [place], [place] 629203 Referring Rheumatology 04/09/18 Jimbo Swanson, DIGITAL COMMUNICATIONS MANAGER.AMUSEMENT RIDE OPERATOR [address] [place] [address] [facility] Internal Medicine 01/28/24 Bartolome Francis MD [address] [facility] [place], [place] 47[address] Surgeon Cardiac Surg 04/02/24 Juvencio Saeed MD [address] [place] [address] Primary Staff Physician Cardiology 04/02/24 Pili Benitez, wedding cake designerTool And Die Repair 04/11/24 Pili Benitez, wedding cake designer Can Dryer 05/05/24 Twyla Cuevas DIGITAL COMMUNICATIONS MANAGER.COAT OPERATOR INSULATOR [address] [place], [place] 617881 [facility] Internal [facility] 05/13/24 Team Status: Active Member [...] Referring Provider Active Start: Ap ril 2024 Couples Therapist Relationship Specialty Start Date End Date Claudine Durán MD [address] [place], [place] 353611 PCP - General Internal Medicine 03/02/16 Will Hurley [address] [facility] [place] 825143 Referring Rheumatology 04/09/18 Jimbo Swanson, CONNIE.AMUSEMENT RIDE OPERATOR [address] [facility] [place] [address] [facility] Internal Medicine 01/28/24 Bartolome Francis MD [address] [place], [place] 9609095 Surgeon Cardiac Surg 04/02/24 Juvencio Saeed MD [address] [place], [place] 3712395 Primary Staff Physician Cardiology 04/02/24 Pili Benitez, wedding cake designerTool And Die Repair 04/11/24 Twyla Cuevas DIGITAL COMMUNICATIONS MANAGER.COAT OPERATOR INSULATOR [address] [place] [address] [facility] Internal Medicine 05/13/24 Couples Therapist Relationship Specialty Start Date End Date Claudine Durán MD [address] [place] [address] PCP - General Internal Medicine 03/02/16 Will Hurley [address] [place] [address] Referring Rheumatology 04/09/18 Jimbo Swanson APRN.AMUSEMENT RIDE OPERATOR [address] [place] [address] [facility] Internal Medicine 01/28/24 Bartolome Francis MD [address] [facility] [place] [address] Surgeon Cardiac Surg 04/02/24 Juvencio Saeed MD [address] [facility] [place], [place] 9204595 Primary Staff Physician Cardiology 04/02/24 Pili eBnitez, wedding cake designerTool And Die Repair 04/11/24 Twyla Cuevas DIGITAL COMMUNICATIONS MANAGER.COAT OPERATOR INSULATOR [address] [place] [address] [facility] Internal Medicine 05/13/24 Couples Therapist Relationship Specialty Start Date End Date Claudine Durán MD [address] [place] [address] PCP - General Internal Medicine 03/02/16 Will Hurley [address] [place] [address] Referring Rheumatology 04/09/18 Jimbo Swanson, DIGITAL COMMUNICATIONS MANAGER.AMUSEMENT RIDE OPERATOR [address] [place] [address] [facility] Internal Medicine 01/28/24 Bartolome Francis MD [address] [place], [place] 3698895 Surgeon Cardiac Surg 04/02/24 Juvencio Saeed MD [address] [place], [place] 8949395 Primary Staff Physician Cardiology 04/02/24 Pili Benitez, wedding cake designerTool And Die Repair 04/11/24 Twyla Cuevas, DIGITAL COMMUNICATIONS MANAGER.COAT OPERATOR INSULATOR [address] [place] [address] [facility] 05/13/24 Couples Therapist Relationship Specialty Start Date End Date Claudine Durán MD [address] [place], [place] 708231 PCP - General Internal Medicine 03/02/16 Will Hurley [address] [facility] [place] [address] Referring Rheumatology 04/09/18 Jimbo Swanson, DIGITAL COMMUNICATIONS MANAGER.AMUSEMENT RIDE OPERATOR [address] [place], [place] 938971 [facility] Internal [facility] 01/28/24 Bartolome Francis MD [address] [place], [place] 6019995 Surgeon Cardiac Surg 04/02/24 Juvencio Saeed MD [address] [place], [place] 2154895 Primary Staff Physician Cardiology 04/02/24 Pili Benitez, wedding cake designerTool And Die Repair 04/11/24 Twyla Cuevas DIGITAL COMMUNICATIONS MANAGER.COAT OPERATOR INSULATOR [address] [place], [place] 712791 [facility] Internal Medicine 05/13/24 Couples Therapist Relationship Specialty Start Date End Date Claudine Durán MD [address] [place], [place] 844911 PCP - General Internal Medicine 03/02/16 Will Hurley [address] [place], [place] 422123 Referring Rheumatology 04/09/18 Jimbo Swanson, DIGITAL COMMUNICATIONS MANAGER.AMUSEMENT RIDE OPERATOR [address] [place] [address] [facility] 01/28/24 Bartolome Francis MD [address] [place] [address] Surgeon Cardiac Surg 04/02/24 Juvencio Saeed MD [address] [place] [address] Primary Staff Physician Cardiology 04/02/24 Pili Benitez, wedding cake designerTool And Die Repair 04/11/24 Twyla Cuevas APRN.COAT OPERATOR INSULATOR [address] [place], [place] 186721 [facility] 05/13/24 Team Status: Inactive Member Role Status Dates Dr. Claudine Durán MD Primary Care Provider Active Start: June 18, 2024 End: June 18, 2024 CHRISTOPHE LOWRY Attending Provider Active Start: Ap [facility] 2024 End: June 18, 2024 CHRISTOPHE LOWRY Referring Provider Active Start: Ap [facility] 2024 End: June 18, 2024 Team [...] Yaima y 2024 End: July 19, 2024 Couples Therapist Relationship Specialty Start Date End Date Claudine Durán MD [address] [facility] [place] [address] PCP - General Internal Medicine 03/02/16 Will Hurley [address] [place] [address] Referring Rheumatology 04/09/18 Bartolome Francis MD [address] [place], [place] 9078395 Surgeon Cardiac Surg 04/02/24 Juvencio Saeed MD [address] [place], [place] 5992995 Primary Staff Physician Cardiology 04/02/24 Twyla Cuevas APRN.COAT OPERATOR INSULATOR [address] [place] [address] [facility] 05/13/24 Jimbo Swanson APRN.AMUSEMENT RIDE OPERATOR [address] [place] [address] [facility] 07/09/24 Couples Therapist Relationship Specialty Start Date End Date Claudine Durán MD [address] [place] [address] PCP - General Internal Medicine 03/02/16 Will Hurley [address] [place] [address] Referring Rheumatology 04/09/18 Bartolome Francis MD [address] [place] [address] Surgeon Cardiac Surg 04/02/24 Juvencio Saeed MD [address] [place] [address] Primary Staff Physician Cardiology 04/02/24 Twyla Cuevas, DIGITAL COMMUNICATIONS MANAGER.COAT OPERATOR INSULATOR [address] [place] [address] [facility] 05/13/24 Jimbo Swanson, DIGITAL COMMUNICATIONS MANAGER.AMUSEMENT RIDE OPERATOR [address] [place] [address] [facility] 07/09/24 Couples Therapist Relationship Specialty Start Date End Date Claudine Durán MD [address] [place] [address] PCP - General Internal Medicine 03/02/16 Will Hurley [address] [place] [address] Referring Rheumatology 04/09/18 Bartolome Francis MD [address] [place], [place] [id number] Surgeon Cardiac Surg 04/02/24 Juvencio Saeed MD [address] [place], [place] [id number] Primary Staff Physician Cardiology 04/02/24 Twyla Cuevas, DIGITAL COMMUNICATIONS MANAGER.COAT OPERATOR INSULATOR [address] [place] [address] [facility] 05/13/24 Jimbo Swanson, DIGITAL COMMUNICATIONS MANAGER.AMUSEMENT RIDE OPERATOR [address] [place] [address] [facility] 07/09/24 Couples Therapist Relationship Specialty Start Date End Date Claudine Durán MD [address] [place] [address] PCP - General Internal Medicine 03/02/16 Will Hurley [address] [facility] [place] [address] Referring Rheumatology 04/09/18 Bartolome Francis MD [address] [place], [place] [id number] Surgeon Cardiac Surg 04/02/24 Juvencio Saeed MD [address] [place], [place] [id number] Primary Staff Physician Cardiology 04/02/24 Twyla Cuevas APRN.COAT OPERATOR INSULATOR [address] [place] [address] [facility] 05/13/24 Jimbo Swanson APRN.AMUSEMENT RIDE OPERATOR [address] [place] [address] [facility] 07/09/24 Couples Therapist Relationship Specialty Start Date End Date Claudine Durán MD [address] [place] [address] PCP - General Internal Medicine 03/02/16 Will Hurley [address] [place] [address] Referring Rheumatology 04/09/18 Bartolome Francis MD [address] [place] [address] Surgeon Cardiac Surg 04/02/24 Juvencio Saeed MD [address] [place], [place] [id number] Primary Staff Physician Cardiology 04/02/24 Twyla Cuevas APRN.COAT OPERATOR INSULATOR [address] [place] [address] [facility] 05/13/24 Jimbo Swanson, DIGITAL COMMUNICATIONS MANAGER.AMUSEMENT RIDE OPERATOR [address] [place] [address] [facility] Internal Medicine 07/09/24 Team Status: Active Member [...] Nasrin ne 2024 End: August 18, 2024 Couples Therapist Relationship Specialty Start Date End Date Claudine Durán MD [address] [place], [place] [address] PCP - General Internal Medicine 03/02/16 Will Hurley [address] [place], [place] [address] Referring Rheumatology 04/09/18 Bartolome Francis MD [address] [place], [place] [id number] Surgeon Cardiac Surg 04/02/24 Juvencio Saeed MD [address] [place], [place] [id number] Primary Staff Physician Cardiology 04/02/24 Twyla Cuevas APRN.COAT OPERATOR INSULATOR [address] [place], [place] [address] [facility] 05/13/24 Jimbo Swanson APRN.AMUSEMENT RIDE OPERATOR [address] [place], [place] [address] [facility] 07/09/24 Team Status: Active Member [...] Provider Active Start: August 24, 2024 Dr. Rno Mariscal MD Emergency Provider Active Start: August [...] Sta rt: August 25, 2024 Dr. Jasmyn Cahn DO Attending Provider Active Start: August 25, 2024 Dr. Jasmyn Chan , Other Provider Active S tart: [...] Active Sta rt: August 27, 2024 Dr. aJsmyn Chan DO Attending Provider Active Start: August [...] 2024 CHRISTOPHE LOWRY Attending Provider Active Start: [facility] 2024 End: June 18, 2024 CHRISTOPHE LOWRY Referring Provider Active Start: [facility] 2024 End: June 18, 2024 Team [...] 2024 CHRISTOPHE LOWRY Attending Provider Active Start: [facility] 2024 End: July 19, 2024 CHRISTOPHE LOWRY [...] 2024 End: August 28, 2024 Fadia Pizarro [employer] SALESPERSON, [employer] SALESPERSON-C Attending Provider Active Start: August 28, 2024 [...] 2024 CHRISTOPHE LOWRY Attending Provider Active Start: [place] 2024 End: July 19, 2024 CHRISTOPHE LOWRY Referring Provider Active Start: Mi y 2024 End: July 19, 2024 Team [...] Active Member Role/Relationship Status Dates Dr. Claudine Duárn MD Primary Care Provider Active Start: August [...] End: August 28, 2024 Fadia Pizarro NP, [employer] SALESPERSON-C Attending Provider Active Start: August 28, 2024 [...] October 19, 2024 End: October 19, 2024 Couples Therapist Relationship Specialty Start Date End Date Claudine Durán MD [address] [place] [address] PCP - General Internal Medicine 03/02/16 Will Hurley [address] [place] [address] Referring Rheumatology 04/09/18 Bartolome Francis MD [address] [place], [place] [id number] Surgeon Cardiac Surg 04/02/24 Juvencio Saeed MD [address] [place], [place] [id number] Primary Staff Physician Cardiology 04/02/24 Twyla Cuevas APRN.COAT OPERATOR INSULATOR [address] [place], [place] [id number] [facility] 05/13/24 Jimbo Swanson APRN.AMUSEMENT RIDE OPERATOR [address] [place], [place] [id number] [facility] 07/09/24 Team Status: Inactive Member [...] 2024 End: October 14, 2024 Fadia Pizarro [employer] SALESPERSON, [employer] SALESPERSON-C Attending Provider Active Start: October 14, 2024 [...] October 19, 2024 End: October 19, 2024 Couples Therapist Relationship Specialty Start Date End Date Claudine Durán MD [address] [place] [address] PCP - General Internal Medicine 03/02/16 Will Hurley [address] [place] [address] Referring Rheumatology 04/09/18 Bartolome Francis MD [address] [place], [place] [id number] Surgeon Cardiac Surg 04/02/24 Juvencio Saeed MD [address] [place], [place] [id number] Primary Staff Physician Cardiology 04/02/24 Twyla Cuevas APRN.COAT OPERATOR INSULATOR [address] [place] [address] [facility] 05/13/24 Jimbo Swanson APRN.AMUSEMENT RIDE OPERATOR [address] [place], [place] [address] [facility] 07/09/24 Goals (unrecognized section and [...] BE BASED ON THE PRIMARY CLINICAL RECORDS. [facility] [employer] [facility]. provides no warranty or guarantee of the accuracy or completeness of information in this document.
[2024-11-08 19:42] VITALS: BP 147/85; PULSE 83; RESP 18; TEMP 36.4; O2SAT 96
[2024-11-08 19:46] VITALS: BMI 23.1
[2024-11-09 01:45] VITALS: BP 141/60; PULSE 71; RESP 16; TEMP 36.7; O2SAT 96
[2024-11-09 04:51] LABS: Hematocrit 30.3 % (37-47); Hemoglobin 10.2 g/dL (12.0-15.0); Immature Granulocytes Count 0.020 X10^3/uL (0.0-0.0); Mean Corp Hgb Conc 33.7 g/dL (32-36); Mean Corpuscular Volume 100.0 fL (81-99); Mean Platelet Vol. 10.7 fl (6.2-12.0); NRBC Flagged by Analyzer 0 % (0-5); Platelet Count 169 K/mm3 (150-450); RBC Distribution Width CV 15.3 % (11.6-14.6); RBC Distribution Width SD 56.3 fl (35.1-43.9); Red Blood Count 3.03 M/mm3 (4.2-5.4); White Blood Count 5.3 K/mm3 (4.4-11.0)
[2024-11-09 05:07] LABS: Prothrombin Time (Protime)PT. 21.4 SECONDS (11.7-14.9)
--- NOTE | 2024-11-09 08:54 | PN.HOSP_ITS ---
Reason for Visit Chief Complaint: Right knee pain Subjective Subjective Patient is a 79-year-old lady who presented following a fall in her kitchen with significant left knee swelling. Imaging studies demonstrated right patella fracture Objective Data Objective Data Vital Signs: Vital Signs Temp Pulse Resp BP Pulse Ox O2 Del Method 98.1 F 71 16 141/60 H 96 Room Air 11/09/24 01:45 11/09/24 01:45 11/09/24 01:45 11/09/24 01:45 11/09/24 01:45 11/09/24 02:00 Oxygen Delivery Method Room Air Weight: 59.1 kg Body Mass Index (BMI) 23.1 Intake & Output: Intake and Output for Last 24 Hours 11/07/24 11/08/24 11/09/24 23:59 23:59 23:59 Intake Total 100 / 100 Output Total 1000 / 1000 Balance -900 / -900 Lab / Micro Data 11/09/24 04:10 11/08/24 17:55 Labs: Laboratory Results - last 24 hr 11/08/24 17:55: WBC 8.3, RBC 3.38 L, Hgb 11.3 L, Hct 33.0 L, MCV 97.6, MCH 33.4 H, MCHC 34.2, RDW Std Deviation 53.5 H, RDW Coeff of Catarino 14.9 H, Plt Count 180, MPV 10.1, Immature Gran % (Auto) 0.400, Neut % (Auto) 70.1 H, Lymph % (Auto) 19.2, [place] % (Auto) 9.7, Eos % (Auto) 0.4, Baso % (Auto) 0.2, Absolute Neuts (auto) 5.9, Absolute Lymphs (auto) 1.60, Nucleated RBC % 0, PT 22.8 H, INR 2.0, Sodium 133, Potassium 3.8, Chloride 99, Carbon Dioxide 21.5, Anion Gap 13, BUN 14, Creatinine 0.56 L, Estim Creat Clear Calc 48.72 L, Est GFR (MDRD) Non-Af 94, BUN/Creatinine Ratio 25.6 H, Glucose 87, Calcium 9.4 11/09/24 04:10: WBC 5.3, RBC 3.03 L, Hgb 10.2 L, Hct 30.3 L, MCV 100.0 H, MCH 33.7 H, MCHC 33.7, RDW Std Deviation 56.3 H, RDW Coeff of Catarino 15.3 H, Plt Count 169, MPV 10.7, Immature Gran % (Auto) 0.400, Neut % (Auto) 67.4, Lymph % (Auto) 16.7 L, [place] % (Auto) 13.1 H, Eos % (Auto) 1.7, Baso % (Auto) 0.7, Absolute Neuts (auto) 3.6, Absolute Lymphs (auto) 0.89, Nucleated RBC % 0, PT 21.4 H, INR 1.8 Radiography Diagnostic Testing: Radiology Impression Knee X-Ray 11/08/24 16:46 IMPRESSION: Acute transverse patellar fracture. - Moderately large associated complex suprapatellar effusion. - Possible trochlear subchondral impaction injury. - Other findings discussed above. Reading Location: [facility] Physical Exam Narrative GENERAL: cooperative HEENT: Atraumatic; normocephalic EYES; Anicteric, Normal Conjunctiva NECK; supple, normal thyroid, RESPIRATORY: Diminished to auscultation CARDIOVASCULAR: Regular S1 S2, GI: soft, normoactive bowel sounds, : No Renal angle tenderness; EXTREMITIES: No edema, no clubbing, MUSCULOSKELETAL: Right knee immobilized with surrounding area swelling around right patella NEURO: Awake; no lateralizing signs. SKIN: No Rash PSYCH; Flat affect Assessment & Plan Assessment/Plan (1) Patellar fracture: PLAN: Plan Patient is a 79-year-old lady who presented following a fall in her kitchen with significant left knee swelling. Imaging studies demonstrated right patella fracture 1. Fall with right patella fracture ? imaging studies obtained on admission demonstrated acute transverse patella fracture,. Treatment initiated with knee immobilization, pain meds with consultation placed to orthopedic surgery consult placed orthopedic surgery 2. Valvular heart disease ? With known history of severe aortic stenosis status post TAVR 3. COPD ? Currently not in exacerbation aerosol treatments as needed 4. Chronic congestive heart failure with preserved ejection fraction ? Patient remains euvolemic 5. History of DVT ? Patient is on systemic anticoagulation with Coumadin continued with daily monitoring of INR. Has previous history of IVC filter placement 6. Hypertension ? Blood pressure controlled, home medications continued with dose adjustment as needed 7. Rheumatoid arthritis ? Patient was previously on Humira taking out by her executive communications manager subsequently placed on sulfasalazine 8. Anemia ? Secondary to chronic disorder monitoring H&H and transfuse if patient becomes symptomatic or hemoglobin falls below 7 9. Osteoporosis ? With fracture of the right wrist in August 2024 10. DVT prophylaxis ? Patient already on Coumadin Charges/Coding Visit Charges Inpatient E&M: 68282 Subs Hosp L3
[2024-11-09 09:06] VITALS: BP 127/59; PULSE 76; RESP 14; TEMP 36.8; O2SAT 98
[2024-11-09] MEDS: Potassium Chloride Oral Tablet 20 MEQ PO ×2 (09:25→17:54)
[2024-11-09 09:26] VITALS: PULSE 76
[2024-11-09] MEDS: Metoprolol(XL)Succ 25 MG Tablet PO (09:26)
--- NOTE | 2024-11-09 12:25 | CONS.ORTHO ---
HPI Consult Data Date of Consult: 11/09/24 HPI Narrative HPI Narrative: ALENA BUSTAMANTE, is a 79 F who presents after falling from a chair on November 08, 2024. Reportedly she was sitting on a tall chair when she fell asleep. She fell onto her right knee. It was fine before. She has had pain and swelling. It was difficult to walk. She was brought to the hospital. X-ray showed a patella fracture. Orthopedics was consulted. She denies head injury or loss of consciousness. She does have a history of previous knee pain from arthritis. She states she has rheumatoid arthritis and osteoarthritis. She is also still having pain from shingles with back pain and abdominal pain. She is also recovering from a left wrist fracture wearing her brace occasionally. Patient lives alone. [facility] Medical History Declining functional status Closed head injury without concussion Closed fracture of distal end of left radius Hypertension GERD (gastroesophageal reflux disease) Pericardial effusion CHF (congestive heart failure) Wears glasses Walker as ambulation aid Ambulates with cane Arthritis Excessive bleeding Easy bruising History of ulceration History of GI bleed Gastric reflux Emphysema, unspecified Cardiology follow-up encounter History of edema Severe aortic stenosis ABLA (acute blood loss anemia) Thrombocytopenia Adult failure to thrive Leg edema Rheumatoid arthritis COPD (chronic obstructive pulmonary disease) Former smoker DVT (deep venous thrombosis) Pulmonary embolism Colitis COVID-19 Histoplasmosis Home Medications ?Medication ?Instructions ?Recorded ?Last Taken ?Type multivitamin (Daily Multi-Vitamin 1 tab PO DAILY supplement 03/19/23 10/01/23 History tablet) vitamins A,C,J-hawf-aprvuo 2,148 2 tab PO DAILY eye health 03/19/23 10/01/23 History mcg-113 mg-45 mg-17.4 mg tablet (PreserVision AREDS) gabapentin 300 mg capsule 300 mg PO Q12 nerve pain #0 caps 04/05/23 10/01/23 Rx potassium chloride 20 mEq 20 meq PO BIDCM #0 tabs 04/27/23 10/01/23 Rx tablet,extended release(part/cryst) fluticasone propionate 50 1 spray intranasal DAILY 08/13/23 10/02/23 History mcg/actuation nasal spray,suspension tiotropium bromide 2.5 2 puff inhalation DAILY 08/13/23 10/02/23 History mcg/actuation mist for inhalation (Spiriva Respimat) diclofenac sodium 1 % topical gel 4 g topical BID PRN PRN knee pain 08/18/23 10/02/23 Rx (Voltaren Arthritis Pain) #100 grams albuterol sulfate 90 mcg/actuation 2 puff inhalation Q4H PRN PRN 06/13/24 Unknown History aerosol inhaler shortness of breath or wheezing cholecalciferol (vitamin D3) 25 25 mcg PO QDAY 06/13/24 Unknown History mcg (1,000 unit) capsule fluticasone 250 mcg-salmeterol 50 1 inh inhalation BID 06/13/24 Unknown History mcg/dose blistr powdr for inhalation (Wixela Inhub) folic acid 0.8 mg capsule 0.8 mg PO QDAY 06/13/24 Unknown History methotrexate sodium 2.5 mg tablet 10 mg PO QWEEK 06/13/24 Unknown History sulfasalazine 500 mg 1 g PO BID 06/13/24 Unknown History tablet,delayed release acetaminophen 500 mg tablet 1,000 mg PO TID Pain Score 1-10 06/20/24 Unknown History clindamycin HCl 300 mg capsule 600 mg (2 x 300 mg) PO ONCE #2 caps 06/20/24 Unknown Rx ferrous sulfate 325 mg (65 mg 325 mg PO QDAY 06/20/24 Unknown History iron) tablet metoprolol succinate 25 mg 25 mg PO QDAY #30 tabs 07/18/24 Unknown Rx tablet,extended release 24 hr folic acid 1 mg tablet 1 mg PO DAILY 08/23/24 Unknown History warfarin 1 mg tablet 5 mg PO DAILY 08/23/24 Unknown History warfarin 5 mg tablet See Rx Instructions .Route .COMPLEX 08/23/24 Unknown History gabapentin 300 mg capsule 300 mg PO BID #0 caps 08/27/24 Unknown Rx warfarin 6 mg tablet (Jantoven) 6 mg PO DAILY 11/08/24 Unknown History Allergy/AdvReac Type Severity Reaction Status Date / Time Penicillins Allergy Severe Anaphylaxis Verified 11/08/24 15:36 Surgical History History of transcatheter aortic valve replacement (TAVR) History of back surgery History of esophagogastroduodenoscopy (EGD) History of tonsillectomy History of embolic filter insertion Hx of foot surgery Social History household members: none Smoking Status: Former smoker alcohol intake: never substance use type: does not use ROS ROS Narrative Patient denies any recent changes to eyes ears nose or throat heart or lungs bowel or bladder. She still has some occasional left wrist pain from her fracture. She has back pain and abdominal pain from shingles. She has macular degeneration. She states she needs new glasses. Vital Signs Vital Signs Vital Signs: 11/08/24 15:34 11/08/24 16:34 11/08/24 18:34 Temperature 98.4 F 98.4 F Temperature Source Oral Pulse Rate 83 83 Pulse Strength Respiratory Rate 18 18 Respiratory Effort Normal Non-Labored Respiratory Depth Normal Respiratory Pattern Normal Blood Pressure 131/67 H 131/67 H Blood Pressure Mean 88 88 Blood Pressure Source Blood Pressure Position Blood Pressure Location Pulse Ox 98 98 Oxygen Delivery Method Room Air Room Air 11/08/24 19:42 11/08/24 20:22 11/09/24 01:45 Temperature 97.5 F L 98.1 F Temperature Source Oral Oral Pulse Rate 83 71 Pulse Strength Respiratory Rate 18 16 Respiratory Effort Normal Non-Labored Respiratory Depth Normal Respiratory Pattern Normal Blood Pressure 147/85 H 141/60 H Blood Pressure Mean 105 87 Blood Pressure Source Monitor Monitor Blood Pressure Position Semi-Fowlers Semi-Fowlers Blood Pressure Location Left Arm Left Arm Pulse Ox 96 96 Oxygen Delivery Method Room Air Room Air Room Air 11/09/24 02:00 11/09/24 08:55 11/09/24 09:06 Temperature 98.2 F Temperature Source Oral Pulse Rate 76 Pulse Strength Respiratory Rate 14 Respiratory Effort Normal Non-Labored Normal Non-Labored Respiratory Depth Normal Normal Respiratory Pattern Normal Normal Blood Pressure 127/59 H Blood Pressure Mean 81 Blood Pressure Source Monitor Blood Pressure Position Semi-Fowlers Blood Pressure Location Right Arm Pulse Ox 98 Oxygen Delivery Method Room Air Room Air Room Air 11/09/24 09:26 11/09/24 09:37 Temperature Temperature Source Pulse Rate 76 Pulse Strength Normal (2+) Respiratory Rate Respiratory Effort Respiratory Depth Respiratory Pattern Blood Pressure Blood Pressure Mean Blood Pressure Source Blood Pressure Position Blood Pressure Location Pulse Ox Oxygen Delivery Method Weight Weight: 59.1 kg Body Mass Index (BMI) 23.1 Physical Exam Narrative She is sitting comfortably in bed eating her lunch. Knee immobilizer on the right lower extremity. She has bruising about the right knee. Skin is intact. Legs are neurovascular intact. She is able to lift her right leg off the bed keeping her knee extended. She is able to hold this extended off the bed. She has no hip pain with range of motion. She had no calf pain or swelling. Negative Homans' sign. Distal pulses and sensation intact. She has pain on palpation at the right knee. No warmth or signs of infection. X-rays reviewed showing a transverse patella fracture with approximately 2 to 3 mm of gapping at the articular fracture site. Pre-existing severe knee arthritis with [id number] contact laterally. Questionable impaction fracture of the distal femur uncertain. Lab / Micro Data Attestation: I reviewed the patient's lab results. 11/09/24 04:10 11/08/24 17:55 Labs: Laboratory Results - last 24 hr 11/08/24 17:55: WBC 8.3, RBC 3.38 L, Hgb 11.3 L, Hct 33.0 L, MCV 97.6, MCH 33.4 H, MCHC 34.2, RDW Std Deviation 53.5 H, RDW Coeff of Catarino 14.9 H, Plt Count 180, MPV 10.1, Immature Gran % (Auto) 0.400, Neut % (Auto) 70.1 H, Lymph % (Auto) 19.2, [place] % (Auto) 9.7, Eos % (Auto) 0.4, Baso % (Auto) 0.2, Absolute Neuts (auto) 5.9, Absolute Lymphs (auto) 1.60, Nucleated RBC % 0, PT 22.8 H, INR 2.0, Sodium 133, Potassium 3.8, Chloride 99, Carbon Dioxide 21.5, Anion Gap 13, BUN 14, Creatinine 0.56 L, Estim Creat Clear Calc 48.72 L, Est GFR (MDRD) Non-Af 94, BUN/Creatinine Ratio 25.6 H, Glucose 87, Calcium 9.4 11/09/24 04:10: WBC 5.3, RBC 3.03 L, Hgb 10.2 L, Hct 30.3 L, MCV 100.0 H, MCH 33.7 H, MCHC 33.7, RDW Std Deviation 56.3 H, RDW Coeff of Catarino 15.3 H, Plt Count 169, MPV 10.7, Immature Gran % (Auto) 0.400, Neut % (Auto) 67.4, Lymph % (Auto) 16.7 L, [place] % (Auto) 13.1 H, Eos % (Auto) 1.7, Baso % (Auto) 0.7, Absolute Neuts (auto) 3.6, Absolute Lymphs (auto) 0.89, Nucleated RBC % 0, PT 21.4 H, INR 1.8 Imaging Radiology Impression Knee X-Ray 11/08/24 16:46 IMPRESSION: Acute transverse patellar fracture. - Moderately large associated complex suprapatellar effusion. - Possible trochlear subchondral impaction injury. - Other findings discussed above. Reading Location: [id number] Assessment & Plan Assessment/Plan (1) Patellar fracture: QUALIFIERS: Encounter type: initial encounter Fracture type: closed Fracture morphology: transverse Fracture alignment: nondisplaced Laterality: right Qualified Code(s): S82.034A - Nondisplaced transverse fracture of right patella, initial encounter for closed fracture PLAN: Her diagnosis and treatment options regarding her right patella fracture discussed with her at length. She will continue using her knee immobilizer. She can be weightbearing as tolerated with the knee immobilizer on. Most likely she will need crutches or a walker. Plan on continuing knee immobilizer for approximately 6 weeks. She will continue on her Coumadin. Continue with pain medication if needed. Ice if needed. Elevation. Continue rehab for her left wrist. Brace if needed for the left wrist. We can see her in the office in 1 to 2 weeks for evaluation and x-rays of the right knee. She understands and agrees. All of her questions answered. Orthopedic service will sign off. We can be renotified if needed. Case had been discussed with Dr. Chan November 08, 2024
[2024-11-09 15:00] VITALS: BP 121/64; PULSE 82; RESP 16; TEMP 37.1; O2SAT 95
[2024-11-09] MEDS: Warfarin (PBKC) 6 MG Tablet PO (17:54)
[2024-11-09 20:33] VITALS: BP 114/64; PULSE 84; RESP 16; TEMP 36.6; O2SAT 93
[2024-11-10] VITALS (8 sets, daily range): BP systolic 105–143; BP diastolic 50–79; PULSE 72–106; RESP 16–18; TEMP 36.1–36.6; O2SAT 95–98
[2024-11-10 06:15] LABS: Hematocrit 34.4 % (37-47); Hemoglobin 11.8 g/dL (12.0-15.0); Immature Granulocytes Count 0.020 X10^3/uL (0.0-0.0); Mean Corp Hgb Conc 34.3 g/dL (32-36); Mean Corpuscular Volume 99.1 fL (81-99); Mean Platelet Vol. 10.7 fl (6.2-12.0); NRBC Flagged by Analyzer 0 % (0-5); Platelet Count 175 K/mm3 (150-450); RBC Distribution Width CV 15.5 % (11.6-14.6); RBC Distribution Width SD 55.8 fl (35.1-43.9); Red Blood Count 3.47 M/mm3 (4.2-5.4); White Blood Count 6.2 K/mm3 (4.4-11.0)
[2024-11-10 06:26] LABS: Prothrombin Time (Protime)PT. 16.0 SECONDS (11.7-14.9)
[2024-11-10 06:40] LABS: Anion Gap 12 (5-15); BUN 19 mg/dL (4-19); BUN/Creat Ratio 30.1 RATIO (10-20); Calcium,Total 9.0 mg/dL (7.6-11.0); Carbon Dioxide 22.8 mmol/L (21.0-32.0); Chloride 102 mmol/L (98-108); Estimated Creatinine Clearance 46.58 ml/min (50-250); Glucose 92 mg/dL (70-99); Magnesium 2.2 mg/dL (1.5-2.2); Potassium 3.8 mmol/L (3.3-5.1)
[2024-11-10] MEDS: Metoprolol(XL)Succ 25 MG Tablet PO (08:40)
[2024-11-10] MEDS: Potassium Chloride Oral Tablet 20 MEQ PO ×2 (08:40→17:46)
--- NOTE | 2024-11-10 08:55 | PN.HOSP_ITS ---
Reason for Visit Chief Complaint: Right knee pain Subjective Subjective Patient with numerous concerns and complaints but overall seems to be doing okay from her patellar fracture. Able to put weight on her right lower extremity. Objective Data Objective Data Vital Signs: Vital Signs Temp Pulse Resp BP Pulse Ox O2 Del Method 36.5 C L 106 H 18 105/51 L 95 Room Air 11/10/24 08:39 11/10/24 08:39 11/10/24 08:39 11/10/24 08:39 11/10/24 08:39 11/10/24 08:39 Oxygen Delivery Method Room Air Weight: 59.1 kg Body Mass Index (BMI) 23.1 Intake & Output: Intake and Output for Last 24 Hours 11/08/24 11/09/24 11/10/24 23:59 23:59 23:59 Intake Total 360 / 360 Output Total 1750 / 1750 Balance -1390 / -1390 Lab / Micro Data 11/10/24 05:46 11/10/24 05:46 Labs: Laboratory Results - last 24 hr 11/10/24 05:46: WBC 6.2, RBC 3.47 L, Hgb 11.8 L, Hct 34.4 L, MCV 99.1 H, MCH 34.0 H, MCHC 34.3, RDW Std Deviation 55.8 H, RDW Coeff of Catarino 15.5 H, Plt Count 175, MPV 10.7, Immature Gran % (Auto) 0.300, Neut % (Auto) 66.8, Lymph % (Auto) 17.1 L, [place] % (Auto) 13.7 H, Eos % (Auto) 1.6, Baso % (Auto) 0.5, Absolute Neuts (auto) 4.2, Absolute Lymphs (auto) 1.06, Nucleated RBC % 0, PT 16.0 H, INR 1.3, Sodium 136, Potassium 3.8, Chloride 102, Carbon Dioxide 22.8, Anion Gap 12, BUN 19, Creatinine 0.62 L, Estim Creat Clear Calc 46.58 L, Est GFR (MDRD) Non-Af 92, BUN/Creatinine Ratio 30.1 H, Glucose 92, Calcium 9.0, Phosphorus 4.3, Magnesium 2.2 Physical Exam Const alert and no apparent distress HEENT head/scalp atraumatic and moist oral mucous membranes Resp normal respiratory effort, no retractions, no use of accessory muscles and clear to auscultation bilaterally Cardio regular rate, regular rhythm, S1 normal heart sound and S2 normal heart sound Neuro Sensorium / Orientation: awake and alert Assessment & Plan Assessment/Plan (1) Patellar fracture: QUALIFIERS: Encounter type: initial encounter Fracture alignment: nondisplaced Fracture morphology: transverse Fracture type: closed L aterality: right Qualified Code(s): S82.034A - Nondisplaced transverse fracture of right patella, initial encounter for closed fracture PLAN: Plan Right patella fracture * imaging studies obtained on admission demonstrated acute transverse patella fracture,. * Seen by Dr. Molina of orthopaedics: knee immobilization for 6 weeks with crutches/walker. Ice PRN. follow up in 1-2 weeks * Pain control Chronic medical conditions: * Valvular heart disease? With known history of severe aortic stenosis status post TAVR * COPD? Currently not in exacerbation aerosol treatments as needed * Chronic congestive heart failure with preserved ejection fraction? Patient remains euvolemic * History of DVT? Patient is on systemic anticoagulation with warfarin continued with daily monitoring of INR. Has previous history of IVC filter placement. Will bridge with enoxaparin until INR therapuetic. * Hypertension? Blood pressure controlled, home medications continued with dose adjustment as needed * Rheumatoid arthritis? 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 Secondary to chronic disorder monitoring H&H and transfuse if patient becomes symptomatic or hemoglobin falls below 7 * Osteoporosis? With fracture of the right wrist in August 2024 DVT prophylaxis: not indicated as already on warfarin. Disposition: To group home facility pending approval for [facility] care home. Greater than 50 minutes which spent interacting with the patient, listening to her numerous concerns, discussing disposition. Charges/Coding Visit Charges Inpatient E&M: 93169 Subs Hosp L3
--- NOTE | 2024-11-10 10:47 | CASEMGMT ---
Discharge Planning A list of?SNF providers including quality and resource use data and consistent with the patient's preferred geographic region, medical needs, and insurance network was created in [facility] Guide.? This list was provided to the SW. Maricarmen Collier Discharge Planning Asst.
--- NOTE | 2024-11-10 12:56 | CASEMGMT ---
Addendum entered by Jasmin Woodruff 11/10/24 16:08: [facility] accepted. Pt updated and is agreeable. Precert started. SW remains available to follow. Plan: [facility]; pend precert [facility] Original Note: Social Work- SW met with pt to discuss discharge plans. Pt reports that she has had [facility] since d/c from [facility] 3 weeks ago. Pt reports SN twice per week and PT. Pt reports OT has not started. SW updated DCA on HHC status. Pt reports that she is agreeable to SNF at d/c. Pt reports that she has a FOC; no list of SNF facilities needed at this time. Pt reports [facility] as [facility] with Giselle Perera as alternate. DCA notified of referral request. Pt reports no the needs at this time. SW remains available to follow. BIBI Carrasquillo
--- NOTE | 2024-11-10 13:42 | CASEMGMT ---
Addendum entered by Maricamren Collier 11/10/24 15:48: [facility] has accepted and will submit for precert. SW updated. Maricarmen Collier DC Planning Asst. Original Note: Discharge Planning Referral sent to [facility]. Maricarmen Collier DC Planning Asst.
--- NOTE | 2024-11-10 14:42 | CASEMGMT ---
Discharge Planning [facility] updated that pt will have a snf stay before returning home. Maricarmen Collier DC Planning Asst.
--- NOTE | 2024-11-10 15:30 | TREXTCAR_ITS ---
Diet Diet Order/Speech Therapy: INPATIENT Hospital Diet / Speech Therapy Order(s) 11/08/24 19:41 Diet: Regular - General Food consistency:: Regular Liquid Consistency:: Regular/Thin Routine Orders/Code Status Change Izquierdo Catheter: Wednesdays Routine Lab Work: INR Code Status: Full Code DC O2, CPAP, BIPAP needs Home O2 Discharge instructions: No Therapies Weight Bearing: Weight bearing as tolerated (with right knee immobilizer in place) Extremity Affected:: Right Lower Physical Therapy: Eval and Treat Occupational Therapy: Eval and Treat Problem/Diagnosis (1) Patellar fracture: Status: Acute Code(s): S82.009A - Unspecified fracture of unspecified patella, initial encounter for closed fracture Plan Right patella fracture * imaging studies obtained on admission demonstrated acute transverse patella fracture,. * Seen by Dr. Molina of orthopaedics: knee immobilization for 6 weeks with crutches/walker. Ice PRN. follow up in 1-2 weeks * Pain control Chronic medical conditions: * Valvular heart disease? With known history of severe aortic stenosis status post TAVR * COPD? Currently not in exacerbation aerosol treatments as needed * Chronic congestive heart failure with preserved ejection fraction? Patient remains euvolemic * History of DVT? Patient is on systemic anticoagulation with warfarin continued with daily monitoring of INR. Has previous history of IVC filter placement. Will bridge with enoxaparin until INR therapuetic. * Hypertension? Blood pressure controlled, home medications continued with dose adjustment as needed * Rheumatoid arthritis? 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 Secondary to chronic disorder monitoring H&H and transfuse if patient becomes symptomatic or hemoglobin falls below 7 * Osteoporosis? With fracture of the right wrist in August 2024 DVT prophylaxis: not indicated as already on warfarin. Disposition: To jail facility pending approval for [facility]. Allergies/Procedures Done in Hospital Allergies Penicillins Allergy (Severe, Verified 11/08/24 15:36) Anaphylaxis Type of Care/Length of Stay Estimated LOS: Convalescent Care Less Than 30 days Type of Care Needed: Skilled Rehab Potential: Fair Prognosis: Fair Additional Orders/Day of Discharge Day of Discharge: 11/10/24 Discharge Plan Admission Admit Date/Time: 11/08/24 18:40 Primary Reason for Your Visit: right patellar fracture. Attending Provider: Bob Solano Primary Care Provider: Deyanira Pak Consulting Providers: Padilla Molina; Michael Chan; Killian Garvin Discharge Orders/Prescriptions Prescriptions: New enoxaparin 60 mg/0.6 mL Syringe 60 mg subcut Q12@0600,1800 Qty: 0 0RF Rx Instructions: until INR great than or equal to 2 after 24 hours. Continued fluticasone propion-salmeterol [Wixela Inhub] 250-50 mcg/dose blister with device 1 inh inhalation BID sulfasalazine 500 mg tablet,delayed release (DR/EC) 1 g PO BID methotrexate sodium 2.5 mg tablet 10 mg PO QWEEK Patient Comments: takes on sat. albuterol sulfate 90 mcg/actuation HFA aerosol inhaler 2 puff inhalation Q4H PRN PRN (Reason: shortness of breath or wheezing) cholecalciferol (vitamin D3) 25 mcg (1,000 unit) capsule 25 mcg PO QDAY folic acid 0.8 mg capsule 0.8 mg PO QDAY acetaminophen 500 mg tablet 1,000 mg PO TID ferrous sulfate 325 mg (65 mg iron) tablet 325 mg PO QDAY PreserVision AREDS 2,148 mcg-113 mg-45 mg-17.4mg tablet 2 tab PO DAILY Rx Instructions: administer with AM and PM meals multivitamin [Daily Multi-Vitamin] Tablet 1 tab PO DAILY potassium chloride 20 mEq Tablet,Er Particles/Crystals 20 meq PO BIDCM Qty: 0 0RF warfarin [Jantoven] 6 mg Tablet 6 mg PO DAILY Spiriva Respimat 2.5 mcg/actuation mist 2 puff INHALATION DAILY fluticasone propionate 50 mcg/actuation spray,suspension 1 spray INTRANASAL DAILY diclofenac sodium [Voltaren Arthritis Pain] 1 % gel 4 g topical BID PRN PRN (Reason: knee pain) Qty: 100 0RF folic acid 1 mg tablet 1 mg PO DAILY gabapentin 300 mg Capsule 300 mg PO BID Qty: 0 0RF metoprolol succinate 25 mg tablet extended release 24 hr 25 mg PO QDAY Qty: 30 11RF Discontinued clindamycin HCl 300 mg capsule 600 mg PO ONCE Qty: 2 3RF Rx Instructions: Take 2 capsules by mouth 1 hour prior to dental appointments. gabapentin 300 mg Capsule 300 mg PO Q12 Qty: 0 0RF warfarin 1 mg tablet 5 mg PO DAILY Rx Instructions: 5 mg tues and thurs., 6 mg every other day warfarin 5 mg tablet See Rx Instructions .ROUTE .COMPLEX Rx Instructions: 6mg orally Sun/Sun/Sun/Sun/sun, 5 mg orally / Referrals / Follow Up: Deyanira Pak MD [Primary Care Provider, Internal Medicine] (1) Patellar fracture Qualifiers: Encounter type: initial encounter Fracture type: closed Fracture morphology: transverse Fracture alignment: nondisplaced Laterality: right Qualified Code(s): S82.034A - Nondisplaced transverse fracture of right patella, initial encounter for closed fracture
--- NOTE | 2024-11-10 15:57 | CASEMGMT ---
CORBETT Met with patient to complete CORBETT form. CORBETT form and its content were verbally explained and patient's questions were answered to the best of my ability.? Patient voiced understanding and signed CORBETT form.? Patient provided a copy of signed CORBETT form and original placed in patient's chart.? Patient had no further questions. Maricarmen Collier, Discharge Planning Asst
[2024-11-10] MEDS: Warfarin (PBKC) 6 MG Tablet PO (17:46)
[2024-11-11] VITALS (7 sets, daily range): BP systolic 95–126; BP diastolic 51–60; PULSE 85–111; RESP 16–20; TEMP 36.4–36.9; O2SAT 94–97
[2024-11-11 06:22] LABS: Hematocrit 32.2 % (37-47); Hemoglobin 10.9 g/dL (12.0-15.0); Immature Granulocytes Count 0.030 X10^3/uL (0.0-0.0); Mean Corp Hgb Conc 33.9 g/dL (32-36); Mean Corpuscular Volume 99.7 fL (81-99); Mean Platelet Vol. 10.9 fl (6.2-12.0); NRBC Flagged by Analyzer 0 % (0-5); Platelet Count 163 K/mm3 (150-450); RBC Distribution Width CV 15.7 % (11.6-14.6); RBC Distribution Width SD 57.2 fl (35.1-43.9); Red Blood Count 3.23 M/mm3 (4.2-5.4); White Blood Count 7.4 K/mm3 (4.4-11.0)
[2024-11-11 06:26] LABS: Prothrombin Time (Protime)PT. 16.1 SECONDS (11.7-14.9)
[2024-11-11 06:57] LABS: Anion Gap 12 (5-15); BUN 23 mg/dL (4-19); BUN/Creat Ratio 35.8 RATIO (10-20); Calcium,Total 8.7 mg/dL (7.6-11.0); Carbon Dioxide 21.0 mmol/L (21.0-32.0); Chloride 106 mmol/L (98-108); Estimated Creatinine Clearance 46.58 ml/min (50-250); Glucose 91 mg/dL (70-99); Potassium 4.1 mmol/L (3.3-5.1)
--- NOTE | 2024-11-11 08:11 | PN.HOSP_ITS ---
Reason for Visit Chief Complaint: Right knee pain Subjective Subjective Feeling well. Able to put weight on RLE. Objective Data Objective Data Vital Signs: Vital Signs Temp Pulse Resp BP Pulse Ox O2 Del Method 36.4 C L 90 16 126/60 H 97 Room Air 11/11/24 03:51 11/11/24 03:51 11/11/24 03:51 11/11/24 03:51 11/11/24 03:51 11/11/24 03:54 Oxygen Delivery Method Room Air Weight: 59.1 kg Body Mass Index (BMI) 23.1 Intake & Output: Intake and Output for Last 24 Hours 11/09/24 11/10/24 11/11/24 23:59 23:59 23:59 Intake Total 360 / 360 1200 / 1200 Output Total 1750 / 1750 1000 / 1000 Balance -1390 / -1390 200 / 200 Lab / Micro Data 11/11/24 05:38 11/11/24 05:38 Labs: Laboratory Results - last 24 hr 11/11/24 05:38: WBC 7.4, RBC 3.23 L, Hgb 10.9 L, Hct 32.2 L, MCV 99.7 H, MCH 33.7 H, MCHC 33.9, RDW Std Deviation 57.2 H, RDW Coeff of Catarino 15.7 H, Plt Count 163, MPV 10.9, Immature Gran % (Auto) 0.400, Neut % (Auto) 72.1 H, Lymph % (Auto) 14.4 L, [place] % (Auto) 11.7 H, Eos % (Auto) 1.1, Baso % (Auto) 0.3, Absolute Neuts (auto) 5.3, Absolute Lymphs (auto) 1.07, Nucleated RBC % 0, PT 16.1 H, INR 1.3, Sodium 139, Potassium 4.1, Chloride 106, Carbon Dioxide 21.0, Anion Gap 12, BUN 23 H, Creatinine 0.65 L, Estim Creat Clear Calc 46.58 L, Est GFR (MDRD) Non-Af 90, BUN/Creatinine Ratio 35.8 H, Glucose 91, Calcium 8.7 Physical Exam Const alert and no apparent distress HEENT head/scalp atraumatic and moist oral mucous membranes Resp normal respiratory effort, no retractions, no use of accessory muscles and clear to auscultation bilaterally Cardio regular rate, regular rhythm, S1 normal heart sound and S2 normal heart sound GI normal to inspection, nondistended, normoactive bowel sounds, soft to palpation, non-tender and non-distended Neuro Sensorium / Orientation: awake and alert Assessment & Plan Assessment/Plan (1) Patellar fracture: QUALIFIERS: Encounter type: initial encounter Fracture alignment: nondisplaced Fracture morphology: transverse Fracture type: closed L aterality: right Qualified Code(s): S82.034A - Nondisplaced transverse fracture of right patella, initial encounter for closed fracture PLAN: Plan Right patella fracture * imaging studies obtained on admission demonstrated acute transverse patella fracture,. * Seen by Dr. Molina of orthopaedics: knee immobilization for 6 weeks with crutches/walker. Ice PRN. follow up in 1-2 weeks * Pain control Chronic medical conditions: * Valvular heart disease? With known history of severe aortic stenosis status post TAVR * COPD? Currently not in exacerbation aerosol treatments as needed * Chronic congestive heart failure with preserved ejection fraction? Patient remains euvolemic * History of DVT? Patient is on systemic anticoagulation with warfarin continued with daily monitoring of INR. Has previous history of IVC filter placement. Will bridge with enoxaparin until INR therapuetic. * Hypertension? Blood pressure controlled, home medications continued with dose adjustment as needed * Rheumatoid arthritis? 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 Secondary to chronic disorder monitoring H&H and transfuse if patient becomes symptomatic or hemoglobin falls below 7 * Osteoporosis? With fracture of the right wrist in August 2024. Brace has since been removed. Follow up with orthopaedics as outpt. DVT prophylaxis: not indicated as already on warfarin. Disposition: To shelter facility pending approval for [facility]. Charges/Coding Visit Charges Inpatient E&M: 79939 Subs Hosp L1 Date medically ready for discharge: 11/10/24 Reason for DC delay: Precert pending from insurance
[2024-11-11] MEDS: Potassium Chloride Oral Tablet 20 MEQ PO (08:45)
[2024-11-11] MEDS: Metoprolol(XL)Succ 25 MG Tablet PO (08:45)
--- NOTE | 2024-11-11 13:24 | CASEMGMT ---
[facility] to admit. Maricarmen Collier DC Planning Asst.
--- NOTE | 2024-11-11 14:05 | CASEMGMT ---
Social Work Precert has been obtained.? Physician updated and pt is ready for discharge today.? 7000 convalescent form completed in [facility]. SW met with pt and they are agreeable to discharge plan as stated above.? DCA and bedside nurse notified of discharge. Disposition:[facility], skilled level of care BIBI Carrasquillo
--- NOTE | 2024-11-11 14:12 | CASEMGMT ---
Discharge Planning Discharge orders, signed med list, and transport time sent to [facility]. Physicians will transport pt by wheelchair at 3:30p. Nursing, SW, and pt updated. Pt to updated friends. Maricarmen Collier DC Planning Asst.
--- NOTE | 2024-11-11 14:15 | PHA.DC.MR.R ---
Pharmacy [place] Med Reconciliation Pharmacy Service has performed discharge medication reconciliation for this patient. The patient's discharge medication list was reviewed for discrepancies and discrepancies were resolved. Medications at Discharge Home Medications multivitamin (Daily Multi-Vitamin tablet) 1 tab PO DAILY supplement 03/19/23 vitamins A,C,H-[id number]-tcszpq 2,148 mcg-113 mg-45 mg-17.4 mg tablet (PreserVision AREDS) 2 tab PO DAILY eye health 03/19/23 potassium chloride 20 mEq tablet,extended release(part/cryst) 20 meq PO BIDCM #0 tabs 04/27/23 fluticasone propionate 50 mcg/actuation nasal spray,suspension 1 spray intranasal DAILY 08/13/23 tiotropium bromide 2.5 mcg/actuation mist for inhalation (Spiriva Respimat) 2 puff inhalation DAILY 08/13/23 diclofenac sodium 1 % topical gel (Voltaren Arthritis Pain) 4 g topical BID PRN PRN knee pain #100 grams 08/18/23 albuterol sulfate 90 mcg/actuation aerosol inhaler 2 puff inhalation Q4H PRN PRN shortness of breath or wheezing 06/13/24 cholecalciferol (vitamin D3) 25 mcg (1,000 unit) capsule 25 mcg PO QDAY 06/13/24 fluticasone 250 mcg-salmeterol 50 mcg/dose blistr powdr for inhalation (Titixela Inhub) 1 inh inhalation BID 06/13/24 folic acid 0.8 mg capsule 0.8 mg PO QDAY 06/13/24 methotrexate sodium 2.5 mg tablet 10 mg PO QWEEK 06/13/24 sulfasalazine 500 mg tablet,delayed release 1 g PO BID 06/13/24 acetaminophen 500 mg tablet 1,000 mg PO TID Pain Score 1-10 06/20/24 ferrous sulfate 325 mg (65 mg iron) tablet 325 mg PO QDAY 06/20/24 metoprolol succinate 25 mg tablet,extended release 24 hr 25 mg PO QDAY #30 tabs 07/18/24 folic acid 1 mg tablet 1 mg PO DAILY 08/23/24 gabapentin 300 mg capsule 300 mg PO BID #0 caps 08/27/24 warfarin 6 mg tablet (Jantoven) 6 mg PO DAILY 11/08/24 enoxaparin 60 mg/0.6 mL subcutaneous syringe 60 mg (0.6 mL) subcut Q12@00,1800 #0 mL 11/10/24
--- NOTE | 2024-11-11 14:33 | DS.PCM_ITS ---
Providers Date of Admission: 11/08/24 Primary Care Physician: Dr. Deyanira Pak MD Consultations 11/08/24 19:41 Consult: Orthopedics Routine Consulting Provider: Padilla Molina Reason for Consult: Right patella fracture EMERGENT Consult: No MD Notified: Yes Date Notified: 11/08/24 Time Notified: 18:47 Method of Notification: Verbal Reason For Visit: RIGHT PATELLA FRACTURE Diagnosis Discharge Diagnosis (1) Patellar fracture: Status: Acute Code(s): S82.009A - Unspecified fracture of unspecified patella, initial encounter for closed fracture Qualifiers: Encounter type: initial encounter Fracture type: closed Fracture morphology: transverse Fracture alignment: nondisplaced Laterality: right Q ualified Code(s): S82.034A - Nondisplaced transverse fracture of right patella, initial encounter for closed fracture Plan Right patella fracture * imaging studies obtained on admission demonstrated acute transverse patella fracture,. * Seen by Dr. Molina of orthopaedics: knee immobilization for 6 weeks with crutches/walker. Ice PRN. follow up in 1-2 weeks * Pain control Chronic medical conditions: * Valvular heart disease? With known history of severe aortic stenosis status post TAVR * COPD? Currently not in exacerbation aerosol treatments as needed * Chronic congestive heart failure with preserved ejection fraction? Patient remains euvolemic * History of DVT? Patient is on systemic anticoagulation with warfarin continued with daily monitoring of INR. Has previous history of IVC filter placement. Will bridge with enoxaparin until INR therapuetic. * Hypertension? Blood pressure controlled, home medications continued with dose adjustment as needed * Rheumatoid arthritis? 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 Secondary to chronic disorder monitoring H&H and transfuse if patient becomes symptomatic or hemoglobin falls below 7 * Osteoporosis? With fracture of the right wrist in August 2024. Brace has since been removed. Follow up with orthopaedics as outpt. DVT prophylaxis: not indicated as already on warfarin. Disposition: To intermediate facility pending approval for [facility]. Medications at Discharge Home Medications multivitamin (Daily Multi-Vitamin tablet) 1 tab PO DAILY supplement 03/19/23 vitamins A,C,G-tpbw-okavvk 2,148 mcg-113 mg-45 mg-17.4 mg tablet (PreserVision AREDS) 2 tab PO DAILY eye health 03/19/23 potassium chloride 20 mEq tablet,extended release(part/cryst) 20 meq PO BIDCM #0 tabs 04/27/23 fluticasone propionate 50 mcg/actuation nasal spray,suspension 1 spray intranasal DAILY 08/13/23 tiotropium bromide 2.5 mcg/actuation mist for inhalation (Spiriva Respimat) 2 puff inhalation DAILY 08/13/23 diclofenac sodium 1 % topical gel (Voltaren Arthritis Pain) 4 g topical BID PRN PRN knee pain #100 grams 08/18/23 albuterol sulfate 90 mcg/actuation aerosol inhaler 2 puff inhalation Q4H PRN PRN shortness of breath or wheezing 06/13/24 cholecalciferol (vitamin D3) 25 mcg (1,000 unit) capsule 25 mcg PO QDAY 06/13/24 fluticasone 250 mcg-salmeterol 50 mcg/dose blistr powdr for inhalation (Wixela Inhub) 1 inh inhalation BID 06/13/24 folic acid 0.8 mg capsule 0.8 mg PO QDAY 06/13/24 methotrexate sodium 2.5 mg tablet 10 mg PO QWEEK 06/13/24 sulfasalazine 500 mg tablet,delayed release 1 g PO BID 06/13/24 acetaminophen 500 mg tablet 1,000 mg PO TID Pain Score 1-10 06/20/24 ferrous sulfate 325 mg (65 mg iron) tablet 325 mg PO QDAY 06/20/24 metoprolol succinate 25 mg tablet,extended release 24 hr 25 mg PO QDAY #30 tabs 07/18/24 folic acid 1 mg tablet 1 mg PO DAILY 08/23/24 gabapentin 300 mg capsule 300 mg PO BID #0 caps 08/27/24 warfarin 6 mg tablet (Jantoven) 6 mg PO DAILY 11/08/24 enoxaparin 60 mg/0.6 mL subcutaneous syringe 60 mg (0.6 mL) subcut Q12@0600,1800 #0 mL 11/10/24 Hospital Course Operations None Procedures None Weight / BMI Weight Weight: 59.1 kg Body Mass Index (BMI) 23.1 ABG / Lab / Microbiology Data 11/11/24 05:38 11/11/24 05:38 Laboratory: Laboratory Results - last 24 hr 11/11/24 05:38: WBC 7.4, RBC 3.23 L, Hgb 10.9 L, Hct 32.2 L, MCV 99.7 H, MCH 33.7 H, MCHC 33.9, RDW Std Deviation 57.2 H, RDW Coeff of Catarino 15.7 H, Plt Count 163, MPV 10.9, Immature Gran % (Auto) 0.400, Neut % (Auto) 72.1 H, Lymph % (Auto) 14.4 L, [place] % (Auto) 11.7 H, Eos % (Auto) 1.1, Baso % (Auto) 0.3, Absolute Neuts (auto) 5.3, Absolute Lymphs (auto) 1.07, Nucleated RBC % 0, PT 16.1 H, INR 1.3, Sodium 139, Potassium 4.1, Chloride 106, Carbon Dioxide 21.0, Anion Gap 12, BUN 23 H, Creatinine 0.65 L, Estim Creat Clear Calc 46.58 L, Est GFR (MDRD) Non-Af 90, BUN/Creatinine Ratio 35.8 H, Glucose 91, Calcium 8.7 D/C Instructions Weight Bearing Status: Weight bearing as tolerated Keep extremity elevated above heart level: Right Leg DC O2, CPAP, BIPAP Needs Home O2 Discharge instructions: No Meaningful Use Info Meaningful Use Meaningful Use Diagnoses (Choose all that apply): None applicable Discharge Plan Admission Admit Date/Time: 11/08/24 18:40 Primary Reason for Your Visit: right patellar fracture. Attending Provider: Bob Solano Primary Care Provider: Deyanira Pak Consulting Providers: Padilla Molina; Michael Chan; Killian Garvin Discharge Orders/Prescriptions Prescriptions: New enoxaparin 60 mg/0.6 mL Syringe 60 mg subcut Q12@0600,1800 Qty: 0 0RF Rx Instructions: until INR great than or equal to 2 after 24 hours. Continued fluticasone propion-salmeterol [Wixela Inhub] 250-50 mcg/dose blister with device 1 inh inhalation BID sulfasalazine 500 mg tablet,delayed release (DR/EC) 1 g PO BID methotrexate sodium 2.5 mg tablet 10 mg PO QWEEK Patient Comments: takes on sat. albuterol sulfate 90 mcg/actuation HFA aerosol inhaler 2 puff inhalation Q4H PRN PRN (Reason: shortness of breath or wheezing) cholecalciferol (vitamin D3) 25 mcg (1,000 unit) capsule 25 mcg PO QDAY folic acid 0.8 mg capsule 0.8 mg PO QDAY acetaminophen 500 mg tablet 1,000 mg PO TID ferrous sulfate 325 mg (65 mg iron) tablet 325 mg PO QDAY PreserVision AREDS 2,148 mcg-113 mg-45 mg-17.4mg tablet 2 tab PO DAILY Rx Instructions: administer with AM and PM meals multivitamin [Daily Multi-Vitamin] Tablet 1 tab PO DAILY potassium chloride 20 mEq Tablet,Er Particles/Crystals 20 meq PO BIDCM Qty: 0 0RF warfarin [Jantoven] 6 mg Tablet 6 mg PO DAILY Spiriva Respimat 2.5 mcg/actuation mist 2 puff INHALATION DAILY fluticasone propionate 50 mcg/actuation spray,suspension 1 spray INTRANASAL DAILY diclofenac sodium [Voltaren Arthritis Pain] 1 % gel 4 g topical BID PRN PRN (Reason: knee pain) Qty: 100 0RF folic acid 1 mg tablet 1 mg PO DAILY gabapentin 300 mg Capsule 300 mg PO BID Qty: 0 0RF metoprolol succinate 25 mg tablet extended release 24 hr 25 mg PO QDAY Qty: 30 11RF Discontinued clindamycin HCl 300 mg capsule 600 mg PO ONCE Qty: 2 3RF Rx Instructions: Take 2 capsules by mouth 1 hour prior to dental appointments. gabapentin 300 mg Capsule 300 mg PO Q12 Qty: 0 0RF warfarin 1 mg tablet 5 mg PO DAILY Rx Instructions: 5 mg and ., 6 mg every other day warfarin 5 mg tablet See Rx Instructions .ROUTE .COMPLEX Rx Instructions: 6mg orally Sun/Sun/Sun/Sun/sat, 5 mg orally / Referrals / Follow Up: Deyanira Pak MD [Primary Care Provider, Internal Medicine] Disposition Disposition (needs filled in before D/C Order can be placed): [facility] Facility Charges/Coding Visit Charges Inpatient E&M: 39329 Disch Hosp
== END 2024-11-11 15:25 | disposition skilled nursing facility (03) ==
LOC: ED 16:58 → MS3 18:55
PROVIDERS: Internal Medicine; Admitting Provider Internal Medicine; Emergency Provider Emergency Medicine; PCP Internal Medicine
DX: S82.034A Nondisplaced transverse fracture of right patella, initial encounter for closed fracture (principal); M06.9 Rheumatoid arthritis, unspecified; I11.0 Hypertensive heart disease with heart failure; I50.32 Chronic diastolic (congestive) heart failure; J43.9 Emphysema, unspecified; G62.9 Polyneuropathy, unspecified; W07.XXXA Fall from chair, initial encounter; Z79.01 Long term (current) use of 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; Z87.891 Personal history of nicotine dependence; Z86.711 Personal history of pulmonary embolism; Z86.718 Personal history of other venous thrombosis and embolism; Z79.899 Other long term (current) drug therapy; Z79.51 Long term (current) use of inhaled steroids; Y93.89 Activity, other specified; Y92.010 Kitchen of single-family (private) house as the place of occurrence of the external cause; K21.9 Gastro-esophageal reflux disease without esophagitis; Z95.2 Presence of prosthetic heart valve; M17.11 Unilateral primary osteoarthritis, right knee; D63.8 Anemia in other chronic diseases classified elsewhere; Z87.311 Personal history of (healed) other pathological fracture; M81.0 Age-related osteoporosis without current pathological fracture
CPT/HCPCS: 36415; 73560; 80048; 83735; 84100; 85025; 85610; 94640; 96372; 96374; 97162; 97166; 97535; 99221; 99252; 99285; G0378; G0463

== ENCOUNTER → 2024-11-12 | Outpatient (REF) | payer MEDICARE, SELFPAY ==
--- OUTSIDE RECORDS SUMMARY | 2024-11-12 03:54 | XMS RPT_ITS | CCD ---
Author Organization [facility]iniSyar Care Team Providers Care Foreign Broadcast Specialist Name Role Phone Mykel Santamaria Unavailable Unavailable Mykel Santamaria Unavailable Unavailable UNKNOWN, REFERR Unavailable Unavailable Will Hurley Attending Unavailable PROVIDER, UNKNOWN Referring Unavailable No, PCP Primary Care Unavailable Claudine Durán MD Primary Care Provider Will Hurley Unavailable [phone] Gold Colón RN Unavailable UnavailClaudine Cannon MD Primary Care Provider Will Hurley Unavailable [phone] Gold Colón RN Unavailable Unavailabl Will Foote Unavailable Lulú Ramos RN Unavailable [phone] Gold Colón RN Unavailable UnavailClaudine Cannon MD Primary Care Provider Will Hurley Unavailable Rachel RN, Lulú Unavailable [phone] Rachel RN, Lulú Unavailable Paul RN, Ilda Unavailable Paul RN, Ilda Unavailable Rachel RN, Lulú Unavailable Lynne Maynard RN Unavailable Unavailable Dr. Claudine Durán Primary Care Provider Dr. Martín Cornejo Emergency Provider [phone] Dr. Laine Veras Admit Provider Dr. Laine [...] Provider Dr. Adarsh Prakash Other Provider Dr. lAcides Abel Attending Provider Dr. Alcides Abel Other Provider Dr. London Sandra Other Provider Dr. Chris Royal Other Provider Unavailable Dr. Leobardo Calloway Other Provider Dr. Jorgito Agarwal Other Provider Sharon PROCESS TRAINER, PROCESS TRAINER-C Rosalina Other Provider Dr. Jasmyn Chan Referring Provider Dr. Alisa Mathew Referring Provider Dr. Claudine Durán Referring Provider Dr. Claudine Durán Primary Care Provider Dr. Martín Cornejo Emergency Provider 1([facility])[phone] Dr. Laine Veras Admit Provider Dr. Laine Veras Other Provider Dr. Alisa Mathew Attending Provider Dr. Alisa Mathew Other Provider Dr. Jasmyn Chan Referring Provider 1([facility])[phone] Dr. Jasmyn Chan Other Provider 1([facility])[phone] Esteban, Dr. Carmona Attending Provider 1([facility])[phone] Dr. Bob Tariq Attending Provider 1([facility])[phone] Alisa Mathew Referring Provider 1([facility])[phone] Dr. Emery Schofield Attending Provider Dr. Jasmyn Chan Attending Provider 1([facility])[phone] Dr. Naman Meredith Other Provider Dr. Lg Rios Other Provider 1([facility])[phone] Rachael Weiss Other Provider 1([facility])[phone] Dr. Stevan Rodríguez Other Provider 1([facility])[phone] Jing Reyes Other Provider Dr. Efrain Quevedo Other Provider Dr. Frederick Dick Other Provider Dr. Claudine Duárn Referring Provider 1([facility])[phone] Dr. Geno Rush Other Provider 1([facility])[phone] Dr. Adarsh Prakash Other Provider Dr. Alcides Abel Attending Provider Dr. Alcides Abel Other Provider Dr. London Sandra Other Provider Dr. Chris Royal Other Provider Unavailable Dr. Leobardo Calloway Other Provider 1([facility])[phone] Jorgito Agarwal Other Provider 1([facility])[phone] Sharon PROCESS TRAINER, PROCESS TRAINER-C Rosalina Other Provider 1([facility])[phone] Dr. Edinson Irvin Chi Referring Provider 1([facility])[phone] Claudine Durán Primary Care [...] Provider Dr. Jorgito Agarwal Other Provider Sharon PROCESS TRAINER, PROCESS TRAINER-C Rosalina Other Provider Dr. Edinson Irvin Chi Referring Provider Claudine Durán MD Primary Care Provider Juarez PROCESS TRAINER, MEENU Loaiza Attending Provider Dr. Zaynab Pina Attending Provider CLAUDINE DURÁN Primary Care Unavailable WILLIAM MESSINA Attending Unavailab david Ramos RN, Lulú Coyne Unavailable CLAUDINE DURÁN Primary Care Unavailable MICHAEL LUJAN Admitting Unavailable SHARAN RIVAS Attending Unavailable GENO CAMACHO Consulting Unavailable Swanson SEAM SEWER.MUSHROOM GROWTH MEDIA MIXER, Jimbo Unavailable Mason SEAM SEWER.AGENT BASED MODELER, Twyla Unavailable Tito MC, Bartolome Unavailable Christophe MC, Juvencio Unavailable Eli RN, Pili Unavailable Unavailable Mason SEAM SEWER.AGENT BASED MODELER, Twyla Jannet Unavailable Mason SEAM SEWER.AGENT BASED MODELER, Twyla Unavailable Eli MITCHELL, Pili Unavailable Unavailable Mason SEAM SEWER.AGENT BASED MODELER, Twyla Unavailable Mason SEAM SEWER.AGENT BASED MODELER, Twyla Unavailable Dr. Claudine Durán MD Primary Care Provider [phone] JUVENCIO SAEED Attending Provider [phone] JUVENCIO SAEED Referring Provider Dr. Claudine Durán MD Referring Provider Dr. Diaz Puckett MD Attending Provider Swanson SEAM SEWER.MUSHROOM GROWTH MEDIA MIXER, Jimbo Unavailable Loida MC, Dr. Velasquez Emergency [...] MD, Dr. Claudine Castañeda Primary Care Provider JUVENCIO SAEED Attending Provider JUVENCIO SAEED Referring Provider Yovani MC, Dr. Worthy Attending Provider Zaynab Pina MD Referring Provider Louisa Pizarro NP-CFadia Attending Provider Pasha MC, Dr. Claudine Castañeda [...] Provider Zaynab Pina MD Attending Provider Louisa Pizarro NP-CFadia Attending Provider Yovani MC, Dr. Worthy Attending Provider Zaynab Pina MD Referring Provider Louisa Hilario MD, Dr. Rey Emergency Provider Unavailab le CLAUDINE DURÁN Primary Care Unavailable BIBI ALEGRIA Referring Unavailable CLAUDINE DURÁN Primary Care Unavailable CLAUDINE DURÁN Attending Unavailable CLAUDINE DURÁN Primary Care Unavailable SELF Referring Unavailable TALAMPAS, [...] Primary Care Unavailable SELF Referring Unavailable TALAMPAS, CLAUIDNE D Primary Care [...] Unavailable TALAMPAS, CLAUDINE D Primary Care Unavailable GNEO HART Attending Unavailable TALAMPAS, CLAUDINE D Primary [...] TALAMPAS, CLAUDINE D Primary Care Unavailable RACHELLE CANADA Attending Unavailable TALAMPAS, CLAUDINE D Primary Care Unavailable TRENT-PALSHOOK, MONICA Referring Unavai lable TALAMPAS, CLAUDINE D Primary Care Unavailable TRENT-PALSHOOK, MONICA Referring Unavai lable TALAMPAS, CLAUDINE D Primary Care Unavailable HELD, LEANDRA Referring Unavailable TALAMPAS, CLAUDINE D Primary Care Unavailable HELD, LEANDRA Referring Unavailable TALAMPAS, CLAUDINE D Primary Care Unavailable HELD, LEANDRA Referring Unavailable Talampas, Claudine D Primary Care Unavailable Oleghe TAMANNA, Efewongbe Referring Unavailabl e Oleghe OLS Efewongbe Attending Unavailabl e Talampas, Claudine D Primary Care Unavailable Oleghe OLS, Efewongbe Attending Unavailabl e Talampas, Claudine D Primary Care Unavailable Oleghe OLS, Efewongbe Attending Unavailabl e Oleghe OLS, Efewongbe Referring Unavailabl e Talampas, Claudine D Primary Care Unavailable Oleghe OLS, Efewongbe Attending Unavailabl e Talampas, Claudine D Primary Care Unavailable Oleghe OLS, Efewongbe Attending Unavailabl e PEÑA, KELSEY Referring Unavailable PEÑA, KELSEY Attending Unavailable Talampas, Claudine D Primary Care Unavailable Talampas, Claudine D Primary Care Unavailable Oleghe OLS, Efewongbe Attending Unavailabl e Talampas, Claudine D Primary Care Unavailable Oleghe OLS, Efewongbe Attending Unavailabl e Talampas, Claudine D Primary Care Unavailable Burak Amanda Consulting Unavailable Harsh, Erasmo Admitting Unavailable Jasmyn Chan Attending Unavailable Harsh, Erasmo Consulting Unavailable Jasmyn Chan Consulting Unavailable Talampas, Claudine D Primary Care Unavailable Oleghe OLS, Efewongbe Attending Unavailabl e Talampas, Claudine D Primary Care Unavailable Oleghe OLS, Efewongbe Attending Unavailabl e Talampas, Claudine D Primary Care Unavailable Oleghe OLS, Efewongbe Attending Unavailabl e Talampas, Claudine D Primary Care Unavailable Oleghe OLS, Efewongbe Attending Unavailabl e PEÑA, KELSEY Referring Unavailable PEÑA, KELSEY Attending Unavailable Talampas, Claudine D Primary Care Unavailable PEÑA, KELSEY Referring Unavailable PEÑA, KELSEY Attending Unavailable Talampas, Claudine D Primary Care Unavailable PEÑA, KELSEY Referring Unavailable PEÑA, KELSEY Attending Unavailable Talampas, Claudine D Primary Care Unavailable PEÑA, KELSEY Referring Unavailable PEÑA, KELSEY Attending Unavailable Talampas, Claudine D Primary Care Unavailable Talampas, Claudine D Primary Care Unavailable Oleghe OLS, Efewongbe Attending Unavailabl e Talampas, Claudine D Primary Care Unavailable Oleghe OLS, Efewongbe Attending Unavailabl e Talampas, Claudine D Primary Care Unavailable Oleghe OLS, Efewongbe Referring Unavailabl e Oleghe OLS, Efewongbe Attending Unavailabl e PEÑA, KELSEY Referring Unavailable PEÑA, KELSEY Attending Unavailable Talampas, Claudine D Primary Care Unavailable Talampas, Claudine D Primary Care Unavailable Krissy Hilario Attending Unavailable Burak Amanda Consulting Unavailable Talampas, Claudine D Primary Care Unavailable Harsh, Erasmo Admitting Unavailable Jasmyn Chan Attending Unavailable Harsh, Erasmo Consulting Unavailable Bob Solano Attending Unavailable Talampas, Claudine D Primary Care Unavailable Padilla Peña Consulting Unavailable Jasmyn Chan Admitting Unavailable Jasmyn Chan Consulting Unavailable Geno Garvin Consulting Unavailable Talampas, Claudine D Primary Care Unavailable Zaynab Wick Attending Unavailuriel e Talampas, Claudine D Primary Care Unavailable Zaynab Pina Attending Unavailable Erasmo House Attending Unavailable Talampas, Claudine D Primary Care Unavailable Jasmyn Chan Consulting Unavailable Jasmyn Chan Admitting Unavailable Jasmyn Chan Attending Unavailable Padilla Peña Consulting Unavailable Geno Garvin Attending Unavailable Geno Garvin Consulting Unavailable Talampas, Claudine D Primary Care Unavailable Juarez MIXON, Fadia Attending Unavailable Talampas, Claudine D Primary Care Unavailable Talampas, Claudine D Referring Unavailable Diaz Puckett Attending Unavailable Talampas, Claudine D Primary Care Unavailable Zaynab Pina Attending Unavailable Juarez PROCESS TRAINER, Fadia Attending Unavailable Talampas, Claudine D Primary Care Unavailable Bob Solano Attending Unavailable Bob Solano Consulting Unavailable Talampas, Claudine D Primary Care Unavailable Zaynab Wick Attending Unavailuriel salcido Allergies Allergy Classification Reported Allergen(s) Allergy Type Date of Onset Reaction(s) Facility Penicillins (antibiotic) (5 sources) Penicillins Drug Allergy 5 [facility] (20 sources) Penicillins; Translations: [PENICILLINS] Propensity to adverse reactions (disorder) 5 [facility] Repository Medications Current Medications Medication [...] 7 days. 7 tablet 10/11/2023 10/18/2023 Active [id number] 200 actuat albuter ol 0.09 mg/actuat metered [...] mo uth once daily at breakfast vit A,C,B-Gwie-Bprgye (OCUVITE PRESERVISION) 2,148 mcg-113 mg-45 mg-17.4mg tab [...] on above: Take 1 capsule by mo [facility] once daily. clindamycin 300 mg oral capsule [...] for 10 days. [facility] [...] 04-05-2023 End: 04-27-2023 Fluticasone Propionate 50 mcg/actuation [place],Suspension Discontinued 1 NMA NASAL DAILY 0 0 [...] (FLONASE) 50 mcg/actuation nasal spray Use 1 [place] in each nostril once daily. 3 Each 3 07/20/2022 06/20/2024 Discontinued Comment on above: Use 1 [place] in each nostril once daily. Fluticasone Propion-Salmeter [...] on above: Take 1 capsule by mo ut twice daily. Take 1 capsule by mo [facility] two times a day. iv contrast [...] Start: 07-26-2013 take 2 tablets by mo [facility] once in the evening methotrexate 2.5 [...] Take 1 tablet by slime twice daily. sulfaSALAzine 500 mg delayed release oral tablet (20 sources) Aminosalicylate Start: 06-13-2024 Start: 02-01-2024 take 2 tablets by mo [facility] twice daily sulfaSALAzine EC (AZULFIDINE EN) 500 [...] ug by inhal ation once daily Tiotropium Mccrory (Spiriva Respimat) 2.5 mcg/actuation mist Active 2 [...] ug by inhalation every twenty-four hours Tiotropium Mccrory (Spiriva Respimat) 2.5 mcg/actuation mist Discontinued 2 NMA INHALATION Q24H March 19, 2023 1:00am April 27, 2023 2:17pm Start: 03-19-2023 End: 04-27-2023 Start: 03-19-2023 End: 04-27-2023 take 1 puff(s) by inhalation every twenty-four hours Tiotropium Mccrory (Spiriva Respimat) 2.5 mcg/actuation mist Discontinued 2 [...] End: 08-18-2023 Start: 08-13-2023 End: 08-18-2023 Warfarin (Jantoven) 7.5 [...] HFA aerosol inhaler Active 2 PUFF INHALATION Q12H March 19, 2023 12:00am Start: 01-24-2023 End: [...] 20 mg/ml oral solution (20 sources) Uncompetitive O-fhqgai-J-aspartate Receptor Antagonist, Sigma-1 Agonist Start: 04-27-2023 End: [...] docusate sodium 50 mg / anson osides, nursing home 8.6 mg oral tablet (20 sources) Start: [...] on above: Take 1 capsule by mo [facility] three times a day as needed [...] above: Take 1 tablet by slime every 8 hours for 5 doses. Mucus [...] twice daily as needed. Take with food Chemult 8-Bfy-Fty-Fish Oil (Fish Oil) 1,200 (144-216) mg capsule (8 sources) Start: 10-01-2023 End: 08-27-2024 Chemult 5-Vnj-Aqj-Fish Oil (Fish Oil) 1,200 (144-216) mg capsule Discontinued 1 NMA PO DAILY October 01, 2023 12:00am August 27, 2024 12:00pm Start: 10-01-2023 Chemult 3-Dha-Ep a-Fish Oil (Fish Oil) 1,200 (144-216) [...] Take 1 tablet by slime once daily. predniSONE 20 mg oral tablet [...] [Pure hypercholesterolemia, unspecified] Chronic E Codes: Fall (12 sources) Fall on same level from slipping, tripping or stumbling ; Translations: [Fall on same level from slipping, tripping and stumbling without subsequent striking against object, initial encounter] Onset: 5 08-23-2024 Episodic Esophageal disorders (20 sources) Gastroesophageal reflux disease; Translations: [Gastro-esophageal reflux disease without esophagitis] Onset: 6 03-06-2005 Chronic Essential hypertension (20 sources) Essential hypertension; Translations: [Essential (primary) hypertension] Onset: 1 Resolved: 6 03-07-2015 Chronic Fluid and electrolyte disorders (1 source) Hypo-osmolality and hyponatremia; Translations: [Hypo-osmolality and hyponatremia] Onset: 5 Episodic Fracture of lower limb (4 sources) Unspecified fracture of unspecified patella, initial encounter for closed fracture; Translations: [Nondisplaced transverse fracture of right patella, initial encounter for closed fracture] Onset: 5 Episodic Fracture of upper limb [...] sources) Long-term current use of anticoagulant; Translations: [prison (current) use of 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] Onset: 0 12-10-2014 Episodic Other aftercare (3 sources) prison (current) use of 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; Translations: [tank terminal gauger current use of anticoagulant therapy] Onset: 5 Episodic Other aftercare (1 source) Long-term current use of drug therapy; Translations: [Other [facility] (current) drug therapy] 08-22-2023 Episodic Other aftercare (2 sources) Long-term current use of antibiotic; Translations: [tank terminal gauger (current) use of antibiotics] 12-18-2023 Episodic Other [...] head, initial encounter] Onset: 5 Episodic Other injuries and conditions due to external causes (1 source) Other specified injuries of left wrist, hand and finger(s), initial encounter; Translations: [Other specified injuries of left wrist, hand and finger(s), initial encounter] Onset: 5 Episodic Other liver [...] 8 07-30-2017 Episodic Other aftercare (1 source) prison (current) use of antibiotics; Translations: [Encounter for [...] Test Name Value Interpretation Reference Range Facility Basic Metabolic Profile (BMP )on 11-12-2024 BUN Normal - [facility] Comment on above: Result Comment: Canc elled via OM: Order cancelled - Patient discharged Performed By: #### L 300.3900, L500.2500, L100.0100 ####[facility] [address] [place], [address] BUN/CRE Normal - [facility] Comment on above: Result Comment: Canc elled via OM: Order cancelled - Patient discharged Performed By: #### L 300.3900, L500.2500, L100.0100 ####[facility] [address] [place], [address] Calcium Normal 7.6-11.0 [facility] Comment on above: Result Comment: Canc elled via OM: Order cancelled - Patient discharged Performed By: #### L 300.3900, L500.2500, L100.0100 ####[facility] [address] [place], [address] CL Normal 98-108 [facility] Comment on above: Result Comment: Canc elled via OM: Order cancelled - Patient discharged Performed By: #### L 300.3900, L500.2500, L100.0100 ####[facility] [address] [place], [address] CO2 Normal 21.0-32.0 [facility] Comment on above: Result Comment: Canc elled via OM: Order cancelled - Patient discharged Performed By: #### L 300.3900, L500.2500, L100.0100 ####[facility] [address] [place], [address] CREAT,SERUM Normal 0.70-1.20 [facility] Comment on above: Result Comment: Canc elled via OM: Order cancelled - Patient discharged Performed By: #### L 300.3900, L500.2500, L100.0100 ####[facility] [address] [place], [address] eGFR Normal >60 [facility] Comment on above: Result Comment: Canc elled via OM: Order cancelled - Patient discharged Performed By: #### L 300.3900, L500.2500, L100.0100 ####[facility] [address] [place], [address] GAP Normal 5-15 [facility] Comment on above: Result Comment: Canc elled via OM: Order cancelled - Patient discharged Performed By: #### L 300.3900, L500.2500, L100.0100 ####[facility] [address] [place], [address] GLU Normal 70-99 [facility] Comment on above: Result Comment: Canc elled via OM: Order cancelled - Patient discharged Performed By: #### L 300.3900, L500.2500, L100.0100 ####[facility] [address] [place], [address] Potassium Normal 3.3-5.1 [facility] Comment on above: Result Comment: Canc elled via OM: Order cancelled - Patient discharged Performed By: #### L 300.3900, L500.2500, L100.0100 ####[facility] [address] [place], [address] Basic Metabolic Profile (BMP) Normal 133-145 [facility] Comment on above: Result Comment: Canc elled via OM: Order cancelled - Patient discharged Performed By: #### L 300.3900, L500.2500, L100.0100 ####[facility] [address] [place], [address] CBC W/Diff, Automatedon 09-2 Absolute Neut Normal 2.0-7.7 [facility] Comment on above: Result Comment: Canc elled via OM: Order cancelled - Patient discharged Performed By: #### L 300.3900, L500.2500, L100.0100 ####[facility] [address] [place], [address] HCT Normal 37-47 [facility] Comment on above: Result Comment: Canc elled via OM: Order cancelled - Patient discharged Performed By: #### L 300.3900, L500.2500, L100.0100 ####[facility] [address] [place], [address] HGB Normal 12.0-15.0 [facility] Comment on above: Result Comment: Canc elled via OM: Order cancelled - Patient discharged Performed By: #### L 300.3900, L500.2500, L100.0100 ####[facility] [address] [place], [address] MCH Normal 27.0-32.0 [facility] Comment on above: Result Comment: Canc elled via OM: Order cancelled - Patient discharged Performed By: #### L 300.3900, L500.2500, L100.0100 ####[facility] [address] [place], [address] MCHC Normal 32-36 [facility] Comment on above: Result Comment: Canc elled via OM: Order cancelled - Patient discharged Performed By: #### L 300.3900, L500.2500, L100.0100 ####[facility] [address] [place], [address] MCV Normal 81-99 [facility] Comment on above: Result Comment: Canc elled via OM: Order cancelled - Patient discharged Performed By: #### L 300.3900, L500.2500, L100.0100 ####[facility] [address] [place], [address] NEUT% Normal 47-70 [facility] Comment on above: Result Comment: Canc elled via OM: Order cancelled - Patient discharged Performed By: #### L 300.3900, L500.2500, L100.0100 ####[facility] [address] [place], [address] PLT Normal 150-450 [facility] Comment on above: Result Comment: Canc elled via OM: Order cancelled - Patient discharged Performed By: #### L 300.3900, L500.2500, L100.0100 ####[facility] [address] [place], [address] RBC Normal 4.2-5.4 [facility] Comment on above: Result Comment: Canc elled via OM: Order cancelled - Patient discharged Performed By: #### L 300.3900, L500.2500, L100.0100 ####[facility] [address] [place], [address] RDW CV Normal 11.6-14.6 [facility] Comment on above: Result Comment: Canc elled via OM: Order cancelled - Patient discharged Performed By: #### L 300.3900, L500.2500, L100.0100 ####[facility] [address] [place], [address] RDW SD Normal 35.1-43.9 [facility] Comment on above: Result Comment: Canc elled via OM: Order cancelled - Patient discharged Performed By: #### L 300.3900, L500.2500, L100.0100 ####[facility] [address] [place], [address] WBC Normal 4.4-11.0 [facility] Comment on above: Result Comment: Canc elled via OM: Order cancelled - Patient discharged Performed By: #### L 300.3900, L500.2500, L100.0100 ####[facility] [address] [place], [address] Prothrombin Time w/INRon INR Normal [facility] Comment on above: Result Comment: Canc elled via OM: Order cancelled - Patient discharged Performed By: #### L 300.3900, L500.2500, L100.0100 ####[facility] [address] [place], [address] PROTIME Normal 11.7-14.9 [facility] Comment on above: Result Comment: Canc elled via OM: Order cancelled - Patient discharged Performed By: #### L 300.3900, L500.2500, L100.0100 ####[facility] [address] [place], [address] Basic Metabolic Profile (BMP )on 11-11-2024 BUN/CRE 35.8 RATIO High 10-20 [facility] Comment on above: Performed By: #### L 100.0100, L300.3900, L500.2500 ####[facility] [address] [place], [address] Calcium [Mass/Vol] 8.7 mg/dL Normal 7.6-11.0 [facility] Comment on above: Performed By: #### L 100.0100, L300.3900, L500.2500 ####[facility] [address] [place], [address] Chloride [Moles/Vol] 106 mmol/L Normal 98-108 [facility] Comment on above: Performed By: #### L 100.0100, L300.3900, L500.2500 ####[facility] [address] [place], [address] CO2 [Moles/Vol] 21.0 mmol/L Normal 21.0-32.0 [facility] Comment on above: Performed By: #### L 100.0100, L300.3900, L500.2500 ####[facility] [address] [place], [address] Creatinine [Mass/Vol] 0.65 mg/dL Low 0.70-1.20 [facility] Comment on above: Performed By: #### L 100.0100, L300.3900, L500.2500 ####[facility] [address] [place], [address] ECRCL 46.58 ml/min Low 50-250 [facility] Comment on above: Performed By: #### L 100.0100, L300.3900, L500.2500 ####[facility] [address] [place], [address] GAP 12 Normal 5-15 [facility] Comment on above: Performed By: #### L 100.0100, L300.3900, L500.2500 ####[facility] [address] [place], [address] GFR/1.73 sq M.predicted among non-blacks MDRD (S/P/Bld) [Vol rate/Area] 90 mL/min/{1.73_m2} Normal >60 [facility] Comment on above: Result Comment: mL/m in/1.73m2 CKD-EPI Creatinine Equation (2020) Performed By: #### L 100.0100, L300.3900, L500.2500 ####[facility] [address] [place], [address] Glucose [Mass/Vol] 91 mg/dL Normal 70-99 [facility] Comment on above: Performed By: #### L 100.0100, L300.3900, L500.2500 ####[facility] [address] [place], [address] Potassium [Moles/Vol] 4.1 mmol/L Normal 3.3-5.1 [facility] Comment on above: Performed By: #### L 100.0100, L300.3900, L500.2500 ####[facility] [address] [place], [address] Sodium [Moles/Vol] 139 mmol/L Normal 133-145 [facility] Comment on above: Performed By: #### L 100.0100, L300.3900, L500.2500 ####[facility] [address] [place], [address] Urea nitrogen [Mass/Vol] 23 mg/dL High 4-19 [facility] Comment on above: Performed By: #### L 100.0100, L300.3900, L500.2500 ####[facility] [address] [place], [address] CBC W/Diff, Automatedon 10-21 Absolute Lymph 1.07 X10 3/uL Normal 0.83-4.51 [facility] Comment on above: Performed By: #### L 100.0100, L300.3900, L500.2500 ####[facility] [address] [place], [address] Absolute Neut 5.3 X10 3/uL Normal 2.0-7.7 [facility] Comment on above: Performed By: #### L 100.0100, L300.3900, L500.2500 ####[facility] [address] [place], [address] Basophils/100 WBC (Bld) 0.3 % Normal 0-1 [facility] Comment on above: Performed By: #### L 100.0100, L300.3900, L500.2500 ####[facility] [address] [place], [address] Eosinophils/100 WBC (Bld) 1.1 % Normal 0-5 [facility] Comment on above: Performed By: #### L 100.0100, L300.3900, L500.2500 ####[facility] [address] [place], [address] Erythrocyte distribution width (RBC) [Ratio] 15.7 % High 11.6-14.6 [facility] Comment on above: Performed By: #### L 100.0100, L300.3900, L500.2500 ####[facility] [address] [place], [address] Hematocrit (Bld) [Volume fraction] 32.2 % Low 37-47 [facility] Comment on above: Performed By: #### L 100.0100, L300.3900, L500.2500 ####[facility] [address] [place], [address] Hemoglobin (Bld) [Mass/Vol] 10.9 g/dL Low 12.0-15.0 [facility] Comment on above: Performed By: #### L 100.0100, L300.3900, L500.2500 ####[facility] [address] [place], [address] IG% 0.400 Normal 0.0-0.9 [facility] Comment on above: Result Comment: IG% - Immature Granulocytes (promyelocytes, myelocytes and metamyelocytes) > 1% indicates that a LEFT SHIFT is Present. Performed By: #### L 100.0100, L300.3900, L500.2500 ####[facility] [address] [place], [address] Lymphocytes/100 WBC (Bld) 14.4 % Low 19-41 [facility] Comment on above: Performed By: #### L 100.0100, L300.3900, L500.2500 ####[facility] [address] [place], [address] MCH (RBC) [Entitic mass] 33.7 pg High 27.0-32.0 [facility] Comment on above: Performed By: #### L 100.0100, L300.3900, L500.2500 ####[facility] [address] [place], [address] MCHC (RBC) [Mass/Vol] 33.9 g/dL Normal 32-36 [facility] Comment on above: Performed By: #### L 100.0100, L300.3900, L500.2500 ####[facility] [address] [place], [address] MCV (RBC) [Entitic vol] 99.7 fL High 81-99 [facility] Comment on above: Performed By: #### L 100.0100, L300.3900, L500.2500 ####[facility] [address] [place], [address] Monocytes/100 WBC (Bld) 11.7 % High 0-10 [facility] Comment on above: Performed By: #### L 100.0100, L300.3900, L500.2500 ####[facility] [address] [place], [address] Neutrophils/100 WBC (Bld) 72.1 % High 47-70 [facility] Comment on above: Performed By: #### L 100.0100, L300.3900, L500.2500 ####[facility] [address] [place], [address] Nucleated RBC (Bld) [#/Vol] 0 10*3/uL Normal 0-5 [facility] Comment on above: Performed By: #### L 100.0100, L300.3900, L500.2500 ####[facility] [address] [place], [address] Platelet mean volume (Bld) [Entitic vol] 10.9 fL Normal 6.2-12.0 [facility] Comment on above: Performed By: #### L 100.0100, L300.3900, L500.2500 ####[facility] [address] [place], [address] Platelets (Bld) [#/Vol] 163 10*3/uL Normal 150-450 [facility] Comment on above: Performed By: #### L 100.0100, L300.3900, L500.2500 ####[facility] [address] [place], [address] RBC (Bld) [#/Vol] 3.23 10*6/uL Low 4.2-5.4 [facility] Comment on above: Performed By: #### L 100.0100, L300.3900, L500.2500 ####[facility] [address] [place], [address] RDW SD 57.2 fl High 35.1-43.9 [facility] Comment on above: Performed By: #### L 100.0100, L300.3900, L500.2500 ####[facility] [address] [place], [address] WBC (Bld) [#/Vol] 7.4 10*3/uL Normal 4.4-11.0 [facility] Comment on above: Performed By: #### L 100.0100, L300.3900, L500.2500 ####[facility] [address] [place], [address] Prothrombin Time w/INRon INR Coag (PPP) [Relative time] 1.3 {INR} Normal [facility] Comment on above: Performed By: #### L 100.0100, L300.3900, L500.2500 ####[facility] [address] [place], [address] PT Coag (PPP) [Time] 16.1 s High 11.7-14.9 [facility] Comment on above: Performed By: #### L 100.0100, L300.3900, L500.2500 ####[facility] [address] [place], [address] Basic Metabolic Profile (BMP )on 11-10-2024 BUN/CRE 30.1 RATIO High 10-20 [facility] Comment on above: Performed By: #### L 100.0100, L501.5200, L501.2300, L300.3900, L500.2500 ####[facility] [address] [place], [address] Calcium [Mass/Vol] 9.0 mg/dL Normal 7.6-11.0 [facility] Comment on above: Performed By: #### L 100.0100, L501.5200, L501.2300, L300.3900, L500.2500 ####[facility] [address] [place], [address] Chloride [Moles/Vol] 102 mmol/L Normal 98-108 [facility] Comment on above: Performed By: #### L 100.0100, L501.5200, L501.2300, L300.3900, L500.2500 ####[facility] [address] [place], [address] CO2 [Moles/Vol] 22.8 mmol/L Normal 21.0-32.0 [facility] Comment on above: Performed By: #### L 100.0100, L501.5200, L501.2300, L300.3900, L500.2500 ####[facility] [address] [place], [address] Creatinine [Mass/Vol] 0.62 mg/dL Low 0.70-1.20 [facility] Comment on above: Performed By: #### L 100.0100, L501.5200, L501.2300, L300.3900, L500.2500 ####[facility] [address] [place], [address] ECRCL 46.58 ml/min Low 50-250 [facility] Comment on above: Performed By: #### L 100.0100, L501.5200, L501.2300, L300.3900, L500.2500 ####[facility] [address] [place], [address] GAP 12 Normal 5-15 [facility] Comment on above: Performed By: #### L 100.0100, L501.5200, L501.2300, L300.3900, L500.2500 ####[facility] [address] [place], [address] GFR/1.73 sq M.predicted among non-blacks MDRD (S/P/Bld) [Vol rate/Area] 92 mL/min/{1.73_m2} Normal >60 [facility] Comment on above: Result Comment: mL/m in/1.73m2 CKD-EPI Creatinine Equation (2020) Performed By: #### L 100.0100, L501.5200, L501.2300, L300.3900, L500.2500 ####[facility] [address] [place], [address] Glucose [Mass/Vol] 92 mg/dL Normal 70-99 [facility] Comment on above: Performed By: #### L 100.0100, L501.5200, L501.2300, L300.3900, L500.2500 ####[facility] [address] [place], [address] Potassium [Moles/Vol] 3.8 mmol/L Normal 3.3-5.1 [facility] Comment on above: Performed By: #### L 100.0100, L501.5200, L501.2300, L300.3900, L500.2500 ####[facility] [address] [place], [address] Sodium [Moles/Vol] 136 mmol/L Normal 133-145 [facility] Comment on above: Performed By: #### L 100.0100, L501.5200, L501.2300, L300.3900, L500.2500 ####[facility] [address] [place], [address] Urea nitrogen [Mass/Vol] 19 mg/dL Normal 4-19 [facility] Comment on above: Performed By: #### L 100.0100, L501.5200, L501.2300, L300.3900, L500.2500 ####[facility] [address] [place], [address] CBC W/Diff, Automatedon 09-2 -2024 Absolute Lymph 1.06 X10 3/uL Normal 0.83-4.51 [facility] Comment on above: Performed By: #### L 100.0100, L501.5200, L501.2300, L300.3900, L500.2500 ####[facility] [address] [place], [address] Absolute Neut 4.2 X10 3/uL Normal 2.0-7.7 [facility] Comment on above: Performed By: #### L 100.0100, L501.5200, L501.2300, L300.3900, L500.2500 ####[facility] [address] [place], [address] Basophils/100 WBC (Bld) 0.5 % Normal 0-1 [facility] Comment on above: Performed By: #### L 100.0100, L501.5200, L501.2300, L300.3900, L500.2500 ####[facility] [address] [place], [address] Eosinophils/100 WBC (Bld) 1.6 % Normal 0-5 [facility] Comment on above: Performed By: #### L 100.0100, L501.5200, L501.2300, L300.3900, L500.2500 ####[facility] [address] [place], [address] Erythrocyte distribution width (RBC) [Ratio] 15.5 % High 11.6-14.6 [facility] Comment on above: Performed By: #### L 100.0100, L501.5200, L501.2300, L300.3900, L500.2500 ####[facility] [address] [place], [address] Hematocrit (Bld) [Volume fraction] 34.4 % Low 37-47 [facility] Comment on above: Performed By: #### L 100.0100, L501.5200, L501.2300, L300.3900, L500.2500 ####[facility] [address] [place], [address] Hemoglobin (Bld) [Mass/Vol] 11.8 g/dL Low 12.0-15.0 [facility] Comment on above: Performed By: #### L 100.0100, L501.5200, L501.2300, L300.3900, L500.2500 ####[facility] [address] [place], [address] IG% 0.300 Normal 0.0-0.9 [facility] Comment on above: Result Comment: IG% - Immature Granulocytes (promyelocytes, myelocytes and metamyelocytes) > 1% indicates that a LEFT SHIFT is Present. Performed By: #### L 100.0100, L501.5200, L501.2300, L300.3900, L500.2500 ####[facility] [address] [place], [address] Lymphocytes/100 WBC (Bld) 17.1 % Low 19-41 [facility] Comment on above: Performed By: #### L 100.0100, L501.5200, L501.2300, L300.3900, L500.2500 ####[facility] [address] [place], [address] MCH (RBC) [Entitic mass] 34.0 pg High 27.0-32.0 [facility] Comment on above: Performed By: #### L 100.0100, L501.5200, L501.2300, L300.3900, L500.2500 ####[facility] [address] [place], [address] MCHC (RBC) [Mass/Vol] 34.3 g/dL Normal 32-36 [facility] Comment on above: Performed By: #### L 100.0100, L501.5200, L501.2300, L300.3900, L500.2500 ####[facility] [address] [place], [address] MCV (RBC) [Entitic vol] 99.1 fL High 81-99 [facility] Comment on above: Performed By: #### L 100.0100, L501.5200, L501.2300, L300.3900, L500.2500 ####[facility] [address] [place], [address] Monocytes/100 WBC (Bld) 13.7 % High 0-10 [facility] Comment on above: Performed By: #### L 100.0100, L501.5200, L501.2300, L300.3900, L500.2500 ####[facility] [address] [place], [address] Neutrophils/100 WBC (Bld) 66.8 % Normal 47-70 [facility] Comment on above: Performed By: #### L 100.0100, L501.5200, L501.2300, L300.3900, L500.2500 ####[facility] [address] [place], [address] Nucleated RBC (Bld) [#/Vol] 0 10*3/uL Normal 0-5 [facility] Comment on above: Performed By: #### L 100.0100, L501.5200, L501.2300, L300.3900, L500.2500 ####[facility] [address] [place], [address] Platelet mean volume (Bld) [Entitic vol] 10.7 fL Normal 6.2-12.0 [facility] Comment on above: Performed By: #### L 100.0100, L501.5200, L501.2300, L300.3900, L500.2500 ####[facility] [address] [place], [address] Platelets (Bld) [#/Vol] 175 10*3/uL Normal 150-450 [facility] Comment on above: Performed By: #### L 100.0100, L501.5200, L501.2300, L300.3900, L500.2500 ####[facility] [address] [place], [address] RBC (Bld) [#/Vol] 3.47 10*6/uL Low 4.2-5.4 [facility] Comment on above: Performed By: #### L 100.0100, L501.5200, L501.2300, L300.3900, L500.2500 ####[facility] [address] [place], [address] RDW SD 55.8 fl High 35.1-43.9 [facility] Comment on above: Performed By: #### L 100.0100, L501.5200, L501.2300, L300.3900, L500.2500 ####[facility] [address] [place], [address] WBC (Bld) [#/Vol] 6.2 10*3/uL Normal 4.4-11.0 [facility] Comment on above: Performed By: #### L 100.0100, L501.5200, L501.2300, L300.3900, L500.2500 ####[facility] [address] [place], [address] Magnesiumon 11-10-2024 Magnesium [Mass/Vol] 2.2 mg/dL Normal 1.5-2.2 [facility] Comment on above: Performed By: #### L 100.0100, L501.5200, L501.2300, L300.3900, L500.2500 ####[facility] [address] [place], [address] Phosphoruson 11-10-2024 Phosphate [Mass/Vol] 4.3 mg/dL Normal 2.7-4.5 [facility] Comment on above: Performed By: #### L 100.0100, L501.5200, L501.2300, L300.3900, L500.2500 ####[facility] [address] [place], [address] Prothrombin Time w/INRon INR Coag (PPP) [Relative time] 1.3 {INR} Normal [facility] Comment on above: Performed By: #### L 100.0100, L501.5200, L501.2300, L300.3900, L500.2500 ####[facility] [address] [place], [address] PT Coag (PPP) [Time] 16.0 s High 11.7-14.9 [facility] Comment on above: Performed By: #### L 100.0100, L501.5200, L501.2300, L300.3900, L500.2500 ####[facility] [address] [place], [address] CBC W/Diff, Automatedon 10-21 Absolute Lymph 0.89 X10 3/uL Normal 0.83-4.51 [facility] Comment on above: Performed By: #### L 100.0100 ####[facility] [address] [place], [address] Absolute Neut 3.6 X10 3/uL Normal 2.0-7.7 [facility] Comment on above: Performed By: #### L 100.0100 ####[facility] [address] [place], [address] Basophils/100 WBC (Bld) 0.7 % Normal 0-1 [facility] Comment on above: Performed By: #### L 100.0100 ####[facility] [address] [place], [address] Eosinophils/100 WBC (Bld) 1.7 % Normal 0-5 [facility] Comment on above: Performed By: #### L 100.0100 ####[facility] [address] [place], [address] Erythrocyte distribution width (RBC) [Ratio] 15.3 % High 11.6-14.6 [facility] Comment on above: Performed By: #### L 100.0100 ####[facility] [address] [place], [address] Hematocrit (Bld) [Volume fraction] 30.3 % Low 37-47 [facility] Comment on above: Performed By: #### L 100.0100 ####[facility] [address] [place], [address] Hemoglobin (Bld) [Mass/Vol] 10.2 g/dL Low 12.0-15.0 [facility] Comment on above: Performed By: #### L 100.0100 ####[facility] [address] [place], [address] IG% 0.400 Normal 0.0-0.9 [facility] Comment on above: Result Comment: IG% - Immature Granulocytes (promyelocytes, myelocytes and metamyelocytes) > 1% indicates that a LEFT SHIFT is Present. Performed By: #### L 100.0100 ####[facility] [address] [place], [address] Lymphocytes/100 WBC (Bld) 16.7 % Low 19-41 [facility] Comment on above: Performed By: #### L 100.0100 ####[facility] [address] [place], [address] MCH (RBC) [Entitic mass] 33.7 pg High 27.0-32.0 [facility] Comment on above: Performed By: #### L 100.0100 ####[facility] [address] [place], [address] MCHC (RBC) [Mass/Vol] 33.7 g/dL Normal 32-36 [facility] Comment on above: Performed By: #### L 100.0100 ####[facility] [address] [place], [address] MCV (RBC) [Entitic vol] 100.0 fL High 81-99 [facility] Comment on above: Performed By: #### L 100.0100 ####[facility] [address] [place], [address] Monocytes/100 WBC (Bld) 13.1 % High 0-10 [facility] Comment on above: Performed By: #### L 100.0100 ####[facility] [address] [place], [address] Neutrophils/100 WBC (Bld) 67.4 % Normal 47-70 [facility] Comment on above: Performed By: #### L 100.0100 ####[facility] [address] [place], [address] Nucleated RBC (Bld) [#/Vol] 0 10*3/uL Normal 0-5 [facility] Comment on above: Performed By: #### L 100.0100 ####[facility] [address] [place], [address] Platelet mean volume (Bld) [Entitic vol] 10.7 fL Normal 6.2-12.0 [facility] Comment on above: Performed By: #### L 100.0100 ####[facility] [address] [place], [address] Platelets (Bld) [#/Vol] 169 10*3/uL Normal 150-450 [facility] Comment on above: Performed By: #### L 100.0100 ####[facility] [address] [place], [address] RBC (Bld) [#/Vol] 3.03 10*6/uL Low 4.2-5.4 [facility] Comment on above: Performed By: #### L 100.0100 ####[facility] [address] [place], [address] RDW SD 56.3 fl High 35.1-43.9 [facility] Comment on above: Performed By: #### L 100.0100 ####[facility] [address] [place], [address] WBC (Bld) [#/Vol] 5.3 10*3/uL Normal 4.4-11.0 [facility] Comment on above: Performed By: #### L 100.0100 ####[facility] [address] [place], [address] Consultation - Orthopedicson 11-09-2024 Consultation - Orthopedics [facility] Medical Records Department [address] [place] [address] Consultation - Orthopedics 11/09/24 1225 MR#: [id number] Acct: [id number] Name: HAYDEE BUSTAMANTE Rep #: [id number] : 1945 79 From: [place] Peña MD PCP: Dr. Claudine Durán MD Status:ADM ADAIR Location: [place] [address] HPI Consult Data Date of Consult: 11/09/24 HPI Narrative HPI Narrative: HAYDEE BUSTAMANTE, is a 79 F who presents after falling from a chair on November 08, 2024. Reportedly she was sitting on a tall chair when she fell asleep. She fell onto her right knee. It was fine before. She has had pain and swelling. It was difficult to walk. She was brought to the hospital. X-ray showed a patella fracture. Orthopedics was consulted. She denies head injury or loss of consciousness. She does have a history of previous knee pain from arthritis. She states she has rheumatoid arthritis and osteoarthritis. She is also still having pain from shingles with back pain and abdominal pain. She is also recovering from a left wrist fracture wearing her brace occasionally. Patient lives alone. [facility] Medical History Declining functional status Closed head [...] DAILY supplement 4 10/01/23 History tablet) vitamins A,C,L-yfil-etggwc 2,148 2 tab PO DAILY eye health 03/19/23 10/01/23 History mcg-113 mg-45 mg-17.4 mg tablet (PreserVision AREDS) gabapentin 300 mg capsule 300 mg PO Q12 nerve pain #0 caps 0 04/05/23 10/01/23 Rx potassium chloride 20 mEq 20 meq PO BIDCM #0 tabs 04/27/23 0 10/01/23 Rx tablet,extended release(part/cryst) fluticasone propionate 50 1 spray intranasal DAILY 08/13/23 10/02/23 History mcg/actuation nasal spray,suspension tiotropium bromide 2.5 2 puff inhalation DAILY [...] 6 mg tablet (Jantoven) 6 mg PO DAILY 11/08/24 Unknown His tory Allergy/AdvReac Type Severity Reaction Status Date / Time Penicillins Allergy Severe Anaphylaxis Verified 11/08/24 15:36 Surgical History History of transcatheter aortic valve replacement (TAVR) History of back surgery History of esophagogastroduodenoscopy (EGD) History of tonsillectomy History of embolic filter insertion Hx of foot surgery Social History household members: none Smoking Status: Former smoker alcohol intake: never substance u (more content not included)... Normal [facility] Prothrombin Time w/INRon INR Coag (PPP) [Relative time] 1.8 {INR} Normal [facility] Comment on above: Performed By: #### L 103.6633 ####[facility] [address] [place], [address] PT Coag (PPP) [Time] 21.4 s High 11.7-14.9 [facility] Comment on above: Performed By: #### L 300.3900 ####[facility] [address] [place], [address] Basic Metabolic Profile (BMP )on 11-08-2024 BUN/CRE 25.6 RATIO High 10- [facility] Comment on above: Performed By: #### L 500.2500, L100.0100, L300.3900 ####[facility] [address] [place], [address] Calcium [Mass/Vol] 9.4 mg/dL Normal 7.6-11.0 [facility] Comment on above: Performed By: #### L 500.2500, L100.0100, L300.3900 ####[facility] [address] [place], [address] Chloride [Moles/Vol] 99 mmol/L Normal 98-108 [facility] Comment on above: Performed By: #### L 500.2500, L100.0100, L300.3900 ####[facility] [address] [place], [address] CO2 [Moles/Vol] 21.5 mmol/L Normal 21.0-32.0 [facility] Comment on above: Performed By: #### L 500.2500, L100.0100, L300.3900 ####[facility] [address] [place], [address] Creatinine [Mass/Vol] 0.56 mg/dL Low 0.70-1.20 [facility] Comment on above: Performed By: #### L 500.2500, L100.0100, L300.3900 ####[facility] [address] [place], [address] ECRCL 48.72 ml/min Low 50-250 [facility] Comment on above: Performed By: #### L 500.2500, L100.0100, L300.3900 ####[facility] [address] [place], [address] GAP 13 Normal 5-15 [facility] Comment on above: Performed By: #### L 500.2500, L100.0100, L300.3900 ####[facility] [address] [place], [address] GFR/1.73 sq M.predicted among non-blacks MDRD (S/P/Bld) [Vol rate/Area] 94 mL/min/{1.73_m2} Normal >60 [facility] Comment on above: Result Comment: mL/m in/1.73m2 CKD-EPI Creatinine Equation (2020) Performed By: #### L 500.2500, L100.0100, L300.3900 ####[facility] [address] [place], [address] Glucose [Mass/Vol] 87 mg/dL Normal 70-99 [facility] Comment on above: Performed By: #### L 500.2500, L100.0100, L300.3900 ####[facility] [address] [place], [address] Potassium [Moles/Vol] 3.8 mmol/L Normal 3.3-5.1 [facility] Comment on above: Performed By: #### L 500.2500, L100.0100, L300.3900 ####[facility] [address] [place], [address] Sodium [Moles/Vol] 133 mmol/L Normal 133-145 [facility] Comment on above: Performed By: #### L 500.2500, L100.0100, L300.3900 ####[facility] [address] [place], [address] Urea nitrogen [Mass/Vol] 14 mg/dL Normal 4-19 [facility] Comment on above: Performed By: #### L 500.2500, L100.0100, L300.3900 ####[facility] [id number] [place], [address] CBC W/Diff, Automatedon 09-2 0-2025 Absolute Lymph 1.60 X10 3/uL Normal 0.83-4.51 [facility] Comment on above: Performed By: #### L 300.3900 #### [facility] [address] [place], [address] Absolute Neut 5.9 X10 3/uL Normal 2.0-7.7 [facility] Comment on above: Performed By: #### L 300.3900 #### [facility] [address] [place], [address] Basophils/100 WBC (Bld) 0.2 % Normal 0-1 [facility] Comment on above: Performed By: #### L 300.3900 #### [facility] [address] [place], [address] Eosinophils/100 WBC (Bld) 0.4 % Normal 0-5 [facility] Comment on above: Performed By: #### L 300.3900 #### [facility] [address] [place], [address] Erythrocyte distribution width (RBC) [Ratio] 14.9 % High 11.6-14.6 [facility] Comment on above: Performed By: #### L 300.3900 #### [facility] [address] [place], [address] Hematocrit (Bld) [Volume fraction] 33.0 % Low 37-47 [facility] Comment on above: Performed By: #### L 300.3900 #### [facility] [address] [place], [address] Hemoglobin (Bld) [Mass/Vol] 11.3 g/dL Low 12.0-15.0 [facility] Comment on above: Performed By: #### L 300.3900 #### [facility] [address] [place], [address] IG% 0.400 Normal 0.0-0.9 [facility] Comment on above: Result Comment: IG% - Immature Granulocytes (promyelocytes, myelocytes and metamyelocytes) > 1% indicates that a LEFT SHIFT is Present. Performed By: #### L 300.3900 #### [facility] [address] [place], [address] Lymphocytes/100 WBC (Bld) 19.2 % Normal 19-41 [facility] Comment on above: Performed By: #### L 300.3900 #### [facility] [address] [place], [address] MCH (RBC) [Entitic mass] 33.4 pg High 27.0-32.0 [facility] Comment on above: Performed By: #### L 300.3900 #### [facility] [address] [place], [address] MCHC (RBC) [Mass/Vol] 34.2 g/dL Normal 32-36 [facility] Comment on above: Performed By: #### L 300.3900 #### [facility] [address] [place], [address] MCV (RBC) [Entitic vol] 97.6 fL Normal 81-99 [facility] Comment on above: Performed By: #### L 300.3900 #### [facility] [address] [place], [address] Monocytes/100 WBC (Bld) 9.7 % Normal 0-10 [facility] Comment on above: Performed By: #### L 300.3900 #### [facility] [address] [place], [address] Neutrophils/100 WBC (Bld) 70.1 % High 47-70 [facility] Comment on above: Performed By: #### L 300.3900 #### [facility] [address] [place], [address] Nucleated RBC (Bld) [#/Vol] 0 10*3/uL Normal 0-5 [facility] Comment on above: Performed By: #### L 300.3900 #### [facility] [address] [place], [address] Platelet mean volume (Bld) [Entitic vol] 10.1 fL Normal 6.2-12.0 [facility] Comment on above: Performed By: #### L 300.3900 #### [facility] [address] [place], [address] Platelets (Bld) [#/Vol] 180 10*3/uL Normal 150-450 [facility] Comment on above: Performed By: #### L 300.3900 #### [facility] [address] [place], [address] RBC (Bld) [#/Vol] 3.38 10*6/uL Low 4.2-5.4 [facility] Comment on above: Performed By: #### L 300.3900 #### [facility] [address] [place], [address] RDW SD 53.5 fl High 35.1-43.9 [facility] Comment on above: Performed By: #### L 300.3900 #### [facility] [address] [place], [address] WBC (Bld) [#/Vol] 8.3 10*3/uL Normal 4.4-11.0 [facility] Comment on above: Performed By: #### L 300.3900 #### [facility] [address] [place], [address] Emergency Department Summary on 11-08-2024 Emergency Department Summary [facility] Medical Records Department [address] [place] [address] Emergency Department Summary 11/08/24 MR#: [id number] Acct: [id number] Name: HAYDEE BUSTAMANTE Rep #: [id number] : 1945 79 From: Ellen Sykes DO PCP: Dr. Claudine Durán MD Status:ADM ADAIR Location: [place] [address] HPI HPI - Fall History of Present Illness Chief Complaint: Fall Informant: patient Narrative Narrative: Patient is a 79-year-old female with history of severe aortic stenosis, COPD, CHF, hypertension, DVT on Coumadin therapy, and rheumatoid arthritis presenting for right knee injury after a fall. She states that she was sitting at the kitchen benton in the chair feeling her meds. She states she has not been sleeping well at night as she had shingles and is up all night because she has persistent issues with neuropathy and pain. She fell [place] and then fell off her chair. She woke up immediately as she was falling and landed on her right knee. Her knee was bent at the time (flexed). She adamantly denies hitting her head. She states he is otherwise been in her normal state of health. She has home health care but lives home alone. She uses a walker to ambulate normally. She called friends and they helped her up and assisted her to the car and brought her in for emergency rooms evaluation. She denies any associate numbness or tingling. She is complain of pain at the anterior medial aspect of her right knee. Does have some swelling. Is able to move her leg but states it is painful. States is very painful to try to put weight on it. Denies any numbness or tingling. No other injuries or concerns at this time. [facility] Medical History Declining functional status [...] DAILY supplement 4 10/01/23 History tablet) vitamins A,C,K-iiix-kkvzwt 2,148 2 tab PO DAILY eye health 03/19/23 10/01/23 History mcg-113 mg-45 mg-17.4 mg tablet (PreserVision AREDS) gabapentin 300 mg capsule 300 mg PO Q12 nerve pain #0 caps 0 04/05/23 10/01/23 Rx potassium chloride 20 mEq 20 meq PO BIDCM #0 tabs 04/27/23 0 10/01/23 Rx tablet,extended release(part/cryst) fluticasone propionate 50 1 spray intranasal DAILY 08/13/23 10/02/23 History mcg/actuation nasal spray,suspension tiotropium bromide 2.5 2 puff inhalation DAILY [...] 6 mg tablet (Jantoven) 6 mg PO DAILY 11/08/24 Unknown His tory (more content not included)... [facility] H AND P Exam - Hospitaliston 11-08-2024 H&P Exam - Hospitalist [facility] Medical Records Department [address] [place] [address] H P Exam - Hospitalist 11/08/24 1851 MR#: [id number] Acct: [id number] Name: HAYDEE BUSTAMANTE Rep #: [id number] : 1945 79 From: Jasmyn Chan DO PCP: Dr. Claudine Durán MD Status:ADM ADAIR Location[place] [facility] HPI - General General Date of Admission: 11/08/24 Date of Service: 11/08/24 Chief Complaint: Right knee pain HPI Narrative HAYDEE BUSTAMANTE, is a 79 F who presents to the emergency room at [facility] after sustaining a fall out of a chair at home and landing on her knees, since that time she has been complaining of right knee pain with inability to bear weight on the right leg without pain. Workup in the emergency room included x-rays which showed a fracture of the right patella, a moderately large associated complex suprapatellar effusion, and possible trochlear subchondral impaction injury. Labs obtained were abnormal for hemoglobin of 11.3, chemistry profile was unremarkable, INR was 2. Patient was placed in a right knee immobilizer, she was given IV narcotics for pain, [facility] and she will be seen by PT OT and orthopedic surgery. I talked with Dr. Padilla Peña- patient had been seen by Dr. Amanda in the past for a wrist fracture in August of this year and Dr. Peña is on-call for Dr. Amanda this weekend. [facility] Medical History Declining functional status Closed head [...] DAILY supplement 4 10/01/23 History tablet) vitamins A,C,H-jrfd-sauaae 2,148 2 tab PO BID eye health [...] 6 mg tablet (Jantoven) 6 mg PO .[id number] 11/08/24 Unkn own History Allergy/AdvReac Type Severity Reaction Status Date / Time Penicillins Allergy Severe Anaphylaxis Verified 11/08/24 15:36 Surgical History ... [facility] Knee 1 or 2 Viewson 11-09-19 25 Knee 1 or 2 Views [facility] [address] [place] [address] Knee 1 or 2 Views MR#: [id number] Acct: [id number] Name: HAYDEE BUSTAMANTE Rep #: [id number] : 1945 F 79 From: Dusty Larry MD PCP: Dr. Claudine Durán MD Status: [facility] ER Study: Knee 1 or 2 Views Date of Exam: 11/08/24 Exam# [id number] Ordering Dr: Ellen Sykes DO PROCEDURE: KNEE 1 OR 2 VIEWS 11/08/2024 REASON FOR EXAM: INJURY/PAIN TECHNIQUE: Procedure Code: RADK Modality: DX Procedure: KNEE 1 OR 2 VIEWS Laterality: Right COMPARISON: None FINDINGS: Osseous: There is severe femorotibial joint space loss more pronounced involving the lateral compartment with gose-he-lnfs appearance and subchondral bony sclerosis with marginal osteophytes. Proximal tibiofibular congruency is maintained. The knee is held in slight flexion. Subarticular bony step-off noted along the femoral trochlea on the lateral view suggesting subchondral fracture of indeterminate acuity. This could be acute, given the patellar findings. Patellar height is within normal range. Patellofemoral joint spacing and alignment is not reliably assessed on the views obtained. If indicated consider a sunrise view. Patellofemoral osteoarthritic changes noted. There is a horizontal minimally displaced fracture extending transversely through the patella. This appears acute. Soft tissues: Moderately large high-density suprapatellar effusion consistent with hemarthrosis. There may be lipohemarthrosis. Mild prepatellar soft tissue swelling. Soft tissue injury is not well assessed by this technique. Vascular: Extensive vascular calcifications noted. RAD/Knee 1 or 2 Views IMPRESSION: Acute transverse patellar fracture. - Moderately large associated complex suprapatellar effusion. - Possible trochlear subchondral impaction injury. - Other findings discussed above. Reading Location: [id number] CC: Dr. Ellen Sykes DO; Dr. 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: Signed [facility] Prothrombin Time w/INRon INR Coag (PPP) [Relative time] 2.0 {INR} [facility] Comment on above: Performed By: #### L 500.2500, L100.0100, L300.3900 ####[facility] [address] [place], [address] PT Coag (PPP) [Time] 22.8 s High 11.7-14.9 [facility] Comment on above: Performed By: #### L 500.2500, L100.0100, L300.3900 ####[facility] [address] [place], [address] Brain/Head without Contrasto n 10-19-2024 Brain/Head without Contrast [facility] Imaging Services [address] [place] [address] Brain/Head without Contrast MR#: [id number] Acct: [id number] Name: HAYDEE BUSTAMANTE Rep #: [id number] : 1945 F 79 From: Lo hess MD PCP: Dr. Claudine Durán MD Status: [facility] ER Study: Brain/Head without Contrast Date of Exam: 09/21 03/15 Exam# [id number] Ordering Dr: Krissy Hilario MD PROCEDURE: BRAIN/HEAD [...] evidence for acute brain abnormality. Reading Location: [place] [address] CC: Dr. Krissy Hilario MD; Dr. 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: Signed [facility] Emergency Department Summary on 10-19-2024 Emergency Department Summary [facility] Medical Records Department [address] [place] [address] Emergency Department Summary 10/19/24 MR#: [id number] Acct: [id number] Name: HAYDEE BUSTAMANTE Rep #: [id number] : 1945 79 From: Krisys Hilario MD PCP: Dr. Claudine Durán MD Status:[facility] ER Location: ED HPI HPI - Fall History of Present Illness Chief Complaint: Fall Narrative Narrative: Patient is a 79-year-old female presenting to the emergency department after a fall. Patient has past medical history as below including DVT on warfarin. Patient states that she lives at home and was using her walker as she normally does when she bent down to tack picker a blanket that was on the [...] in the last 5 years she reports. [facility] Medical History Declining functional status [...] DAILY supplement 4 10/01/23 History tablet) vitamins A,C,G-awhf-rfedvd 2,148 2 tab PO BID eye health [...] surgery H (more content not included)... [facility] Prothrombin Time w/INRon INR Coag (PPP) [Relative time] 2.2 {INR} [facility] Comment on above: Performed By: #### L 300.3900 ####[facility] [address] [place], [place], [address] PT Coag (PPP) [Time] 25.2 s High 11.7-14.9 [facility] Comment on above: Performed By: #### L 300.3900 ####[facility] [address] [place], [place], [address] Prothrombin timeOrdered By: Krissy Hilario on 10-19-2024 PT Coag (PPP) [Time] 25.2 s High 11.7-14.9 [facility] Spine Cervical without Contr ason 10-19-2024 Spine Cervical without Contras [facility] Imaging Services [address] [place] [address] Spine Cervical without Contras MR#: [id number] Acct: [id number] Name: HAYDEE BUSTAMANTE Rep #: [id number] : 1945 F 79 From: Lo hess MD PCP: Dr. Claudine Durán MD Status: REG ER Study: Spine Cervical without Contras Date of Exam: 0 10/19/24 Exam# [id number] Ordering Dr: Krissy Hilario MD PROCEDURE: SPINE [...] and neural exit pathway compromise. Reading [facility] CC: Dr. Krissy Hilario MD; Dr. 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: Signed [facility] Absolute lymphocyte countOrd ered By: Zaynab Pina on 10-16-2024 Lymphocytes Auto (Unsp spec) [#/Vol] 1.13 10*3/uL 0.83-4.51 [facility] Anion gap in Serum or Plasma Ordered By: amilcar Pina on 10-16-2024 Anion gap [Moles/Vol] 11 mmol/L 5-15 [facility] Automated lymphocyte count a s percentage of total leukocytesOrdered By: Zaynab Pina on 10-16-2024 Lymphocytes/100 WBC Auto (Unsp spec) 18.9 % Low 19-41 [facility] BUN/creatinine ratioOrdered By: Zaynab Pina on 10-16-2024 Urea nitrogen/Creatinine [Mass ratio] 23.5 mg/mg High 10-20 [facility] Basophil percentageOrdered B y: Zaynab Pina on 10-16-2024 Basophils/100 WBC (Bld) 0.5 % 0-1 [facility] Carbon dioxide, total [Moles /volume] in Central venous bloodOrdered By: Zaynab Pina on 10-16-2024 CO2 [Moles/Vol] 21.1 mmol/L 21.0-32.0 [facility] Chloride assayOrdered By: Ef amilcar Pina on 10-16-2024 Chloride [Moles/Vol] 98 mmol/L 98-108 [facility] Eosinophil percentageOrdered By: Zaynab Pina on 10-16-2024 Eosinophils/100 WBC (Bld) 1.7 % 0-5 [facility] Erythrocyte distribution wid th ratioOrdered By: Zaynab Pina on 10-16-2024 Erythrocyte distribution width (RBC) [Ratio] 14.6 % 11.6-14.6 [facility] Erythrocyte distribution wid th standard deviationOrdered By: Zaynab Pina on 10-16-2024 Erythrocyte distribution width (RBC) [Ratio] 50.8 fl High 35.1-43.9 [facility] Glomerular filtration rate ( GFR) estimation/1.73 sq m using serum, plasma, or whole bOrdered By: Zaynab Pina on 10-16-2024 GFR/1.73 sq M.predicted among non-blacks MDRD (S/P/Bld) [Vol rate/Area] 92 mL/min/{1.73_m2} >60 [facility] Hematocrit Auto (Bld) [Volum e fraction]Ordered By: [facility] Pina on 10-16-2024 Hematocrit (Bld) [Volume fraction] 35.7 % Low 37-47 [facility] Hemoglobin measurementOrdere d By: Zaynab Pina on 10-16-2024 Hemoglobin (Bld) [Mass/Vol] 12.0 g/dL 12.0-15.0 [facility] Immature granulocytes/100 WB C Auto (Bld)Ordered By: Zaynab Pina on 10-16-2024 Immature granulocytes/100 WBC (Bld) 0.800 % 0.0-0.9 [facility] MCV (mean corpuscular volume ) determinationOrdered By: Zaynab Pina on 10-16-2024 MCV (RBC) [Entitic vol] 96.0 fL 81-99 [facility] Mean corpuscular hemoglobin (MCH) determinationOrdered By: elmermclouthjoesph Pina 10-16-2024 MCH (RBC) [Entitic mass] 32.3 pg High 27.0-32.0 [facility] Monocyte percentageOrdered B y: Zaynab Pina on 10-16-2024 Monocytes/100 WBC (Bld) 12.7 % High 0-10 [facility] Neutrophil percentageOrdered By: elmermclouthjoesph Pina on 10-16-2024 Neutrophils/100 WBC (Bld) 65.4 % 47-70 [facility] Platelet countOrdered By: Christine Pina on 10-16-2024 Platelets (Bld) [#/Vol] 196 10*3/uL 150-450 [facility] Potassium measurement (mass/ volume)Ordered By: Zaynab Pina on 10-16-2024 Potassium (Unsp spec) [Mass/Vol] 4.2 mmol/L 3.3-5.1 [facility] Prothrombin timeOrdered By: Zaynab Pina on 10-16-2024 PT Coag (PPP) [Time] 17.6 s High 11.7-14.9 [facility] RBC Auto (Bld) [#/Vol]Ordere d By: Zaynab Pina on 10-16-2024 RBC (Bld) [#/Vol] 3.72 10*6/uL Low 4.2-5.4 [facility] Serum creatinine measurement (mass/volume)Ordered By: Zaynab Pina on 10-16-2024 Creatinine [Mass/Vol] 0.60 mg/dL Low 0.70-1.20 [facility] Serum glucose measurement (m ass/volume)Ordered By: Zaynab Pina on 10-16-2024 Glucose [Mass/Vol] 83 mg/dL 70-99 [facility] Serum or plasma calcium monica urement (mass/volume)Ordered By: Zaynab Pina on 10-16-2024 Calcium [Mass/Vol] 8.8 mg/dL 7.6-11.0 [facility] Serum or plasma urea nitroge n measurement (mass/volume)Ordered By: Zaynab Pina on 10-16-2024 Urea nitrogen [Mass/Vol] 14 mg/dL 4-19 [facility] Sodium levelOrdered By: Claudio Pina on 10-16-2024 Sodium [Moles/Vol] 129 mmol/L Low 133-145 [facility] White blood cell (WBC) count Ordered By: Zaynab Pina on 10-16-2024 WBC (Bld) [#/Vol] 6.0 10*3/uL 4.4-11.0 [facility] normalized rat io (INR) measurement by fingerstickOrdered By: Zaynab Pina on 10-13-2024 INR Coag (BldC) [Relative time] 2.0 [facility] Whole blood prothrombin time Ordered By: Zaynab Pina on 10-13-2024 PT Coag (Bld) [Time] 22.3 s High 11.7-14.9 [facility] Absolute lymphocyte countOrd ered By: Claudiotanjoesph Cherrynatimarily on 10-09-2024 Lymphocytes Auto (Unsp spec) [#/Vol] 1.63 10*3/uL 0.83-4.51 [facility] Anion gap in Serum or Plasma Ordered By: Zaynab Pina on 10-09-2024 Anion gap [Moles/Vol] 13 mmol/L 5-15 [facility] Automated lymphocyte count a s percentage of total leukocytesOrdered By: Zaynab Pina on 10-09-2024 Lymphocytes/100 WBC Auto (Unsp spec) 25.3 % 19-41 [facility] BUN/creatinine ratioOrdered By: Zaynab Cherrynatimarily on 10-09-2024 Urea nitrogen/Creatinine [Mass ratio] 23.1 mg/mg High 10-20 [facility] Basophil percentageOrdered B y: Claudiotanjoesph Cherrynatimarily on 10-09-2024 Basophils/100 WBC (Bld) 0.5 % 0-1 [facility] Carbon dioxide, total [Moles /volume] in Central venous bloodOrdered By: Zaynab Pina on 10-09-2024 CO2 [Moles/Vol] 21.3 mmol/L 21.0-32.0 [facility] Chloride assayOrdered By: Christine elmershala Pina on 10-09-2024 Chloride [Moles/Vol] 101 mmol/L 98-108 [facility] Eosinophil percentageOrdered By: Zaynab Cherrynatie on 10-09-2024 Eosinophils/100 WBC (Bld) 1.4 % 0-5 [facility] Erythrocyte distribution wid th ratioOrdered By: Zaynab Cherrynatie on 10-09-2024 Erythrocyte distribution width (RBC) [Ratio] 14.0 % 11.6-14.6 [facility] Erythrocyte distribution wid th standard deviationOrdered By: Zaynab Pina on 10-09-2024 Erythrocyte distribution width (RBC) [Ratio] 49.2 fl High 35.1-43.9 [facility] Glomerular filtration rate ( GFR) estimation/1.73 sq m using serum, plasma, or whole bOrdered By: Christineelmertanjoesph Cherrynatimarily on 10-09-2024 GFR/1.73 sq M.predicted among non-blacks MDRD (S/P/Bld) [Vol rate/Area] 92 mL/min/{1.73_m2} >60 [facility] Hematocrit Auto (Bld) [Volum e fraction]Ordered By: Zaynab Cherrynatimarily on 10-09-2024 Hematocrit (Bld) [Volume fraction] 33.1 % Low 37-47 [facility] Hemoglobin measurementOrdere d By: Claudioshala Dilipnatimarily on 10-09-2024 Hemoglobin (Bld) [Mass/Vol] 11.2 g/dL Low 12.0-15.0 [facility] Immature granulocytes/100 WB C Auto (Bld)Ordered By: Zaynab Cherrynatimarily on 10-09-2024 Immature granulocytes/100 WBC (Bld) 0.600 % 0.0-0.9 [facility] MCV (mean corpuscular volume ) determinationOrdered By: Zaynab Pina on 10-09-2024 MCV (RBC) [Entitic vol] 95.9 fL 81-99 [facility] Mean corpuscular hemoglobin (MCH) determinationOrdered By: Christineamilcar Cherrynatimarily on 10-09-2024 MCH (RBC) [Entitic mass] 32.5 pg High 27.0-32.0 [facility] Monocyte percentageOrdered B y: Christineelmertanjoesph Cherrynatimarily on 10-09-2024 Monocytes/100 WBC (Bld) 11.2 % High 0-10 [facility] Neutrophil percentageOrdered By: elmertanjoesph Pina on 10-09-2024 Neutrophils/100 WBC (Bld) 61.0 % 47-70 [facility] Platelet countOrdered By: Christine stevenjoesph Cherrynatimarily on 10-09-2024 Platelets (Bld) [#/Vol] 186 10*3/uL 150-450 [facility] Potassium measurement (mass/ volume)Ordered By: Claudiotanjoesph Cherrynatimarily on 10-09-2024 Potassium (Unsp spec) [Mass/Vol] 3.9 mmol/L 3.3-5.1 [facility] Prothrombin timeOrdered By: Zaynab Pina on 10-09-2024 PT Coag (PPP) [Time] 21.3 s High 11.7-14.9 [facility] RBC Auto (Bld) [#/Vol]Ordere d By: Zaynab Pina on 10-09-2024 RBC (Bld) [#/Vol] 3.45 10*6/uL Low 4.2-5.4 [facility] Serum creatinine measurement (mass/volume)Ordered By: Zaynab Pina on 10-09-2024 Creatinine [Mass/Vol] 0.62 mg/dL Low 0.70-1.20 [facility] Serum glucose measurement (m ass/volume)Ordered By: Zaynab Pina on 10-09-2024 Glucose [Mass/Vol] 68 mg/dL Low 70-99 [facility] Serum or plasma calcium monica urement (mass/volume)Ordered By: Zaynab Pina on 10-09-2024 Calcium [Mass/Vol] 8.8 mg/dL 7.6-11.0 [facility] Serum or plasma urea nitroge n measurement (mass/volume)Ordered By: Zaynab Pina on 10-09-2024 Urea nitrogen [Mass/Vol] 14 mg/dL 4-19 [facility] Sodium levelOrdered By: Claudio Pina on 10-09-2024 Sodium [Moles/Vol] 135 mmol/L 133-145 [facility] White blood cell (WBC) count Ordered By: Zaynab Pina on 10-09-2024 WBC (Bld) [#/Vol] 6.5 10*3/uL 4.4-11.0 [facility] Sodium levelOrdered By: Claudio Pina on 10-07-2024 Sodium [Moles/Vol] 135 mmol/L 133-145 [facility] normalized rat io (INR) measurement by fingerstickOrdered By: Zaynab Pina on 10-06-2024 INR Coag (BldC) [Relative time] 1.6 [facility] Whole blood prothrombin time Ordered By: Zaynab Cherrynatimarily on 10-06-2024 PT Coag (Bld) [Time] 18.4 s High 11.7-14.9 [facility] Absolute lymphocyte countOrd ered By: Christineelmershala Alvesmarily on 10-02-2024 Lymphocytes Auto (Unsp spec) [#/Vol] 0.96 10*3/uL 0.83-4.51 [facility] Absolute neutrophil countOrd ered By: joesph Dilipnatimarily on 10-02-2024 Neutrophils (Bld) [#/Vol] 3.7 10*3/uL 2.0-7.7 [facility] Anion gap in Serum or Plasma Ordered By: Zaynab Cherrynaitmarily on 10-02-2024 Anion gap [Moles/Vol] 12 mmol/L 5-15 [facility] Automated lymphocyte count a s percentage of total leukocytesOrdered By: Zaynab Cherrynatimarily on 10-02-2024 Lymphocytes/100 WBC Auto (Unsp spec) 17.0 % Low 19-41 [facility] [facility] BUN/creatinine ratioOrdered By: Claudiotanjoesph Cherrynatimarily on 10-02-2024 Urea nitrogen/Creatinine [Mass ratio] 20.9 mg/mg High 10-20 [facility] Basophil percentageOrdered B y: Christineelmertanjoesph Joselynmarily on 10-02-2024 Basophils/100 WBC (Bld) 0.4 % 0-1 [facility] Carbon dioxide, total [Moles /volume] in Central venous bloodOrdered By: Zaynab Cherrynatimarily on 10-02-2024 CO2 [Moles/Vol] 21.1 mmol/L 21.0-32.0 [facility] Chloride assayOrdered By: stevenjoesph Cherrynatimarily on 10-02-2024 Chloride [Moles/Vol] 95 mmol/L Low 98-108 [facility] Eosinophil percentageOrdered By: Christineelmertanjoesph Cherrynatimarily on 10-02-2024 Eosinophils/100 WBC (Bld) 0.9 % 0-5 [facility] Erythrocyte distribution wid th ratioOrdered By: Claudiotanjoesph Cherrynatimarily on 10-02-2024 Erythrocyte distribution width (RBC) [Ratio] 13.8 % 11.6-14.6 [facility] Erythrocyte distribution wid th standard deviationOrdered By: Zaynab Pina on 10-02-2024 Erythrocyte distribution width (RBC) [Ratio] 48.2 fl High 35.1-43.9 [facility] Glomerular filtration rate ( GFR) estimation/1.73 sq m using serum, plasma, or whole bOrdered By: Zaynab Pina on 10-02-2024 GFR/1.73 sq M.predicted among non-blacks MDRD (S/P/Bld) [Vol rate/Area] 93 mL/min/{1.73_m2} >60 [facility] Comment on above: mL/min/1.73m2 CKD-EP I Creatinine Equation (2020) Hematocrit Auto (Bld) [Volum e fraction]Ordered By: Zaynab Pina on 10-02-2024 Hematocrit (Bld) [Volume fraction] 32.9 % Low 37-47 [facility] Hemoglobin measurementOrdere d By: Zaynab Pina on 10-02-2024 Hemoglobin (Bld) [Mass/Vol] 11.2 g/dL Low 12.0-15.0 [facility] Immature granulocytes/100 WB C Auto (Bld)Ordered By: Zaynab Pina 10-02-2024 Immature granulocytes/100 WBC (Bld) 0.700 % 0.0-0.9 [facility] Comment on above: IG% - Immature Granu locytes (promyelocytes, myelocytes and metamyelocytes) > 1% indicates that a LEFT SHIFT is Present. MCV (mean corpuscular volume ) determinationOrdered By: Zaynab Pina on 10-02-2024 MCV (RBC) [Entitic vol] 95.1 fL 81-99 [facility] Mean corpuscular hemoglobin (MCH) determinationOrdered By: Zaynab Pina 10-02-2024 MCH (RBC) [Entitic mass] 32.4 pg High 27.0-32.0 [facility] Mean corpuscular hemoglobin concentration (MCHC) determinationOrdered By: Zaynab Pina 10-02-2024 MCHC (RBC) [Mass/Vol] 34.0 g/dL 32-36 [facility] Mean platelet volume determi nationOrdered By: Zaynab Pina on 10-02-2024 Platelet mean volume (Bld) [Entitic vol] 10.9 fL 6.2-12.0 [facility] Monocyte percentageOrdered B y: Zaynab Pina on 10-02-2024 Monocytes/100 WBC (Bld) 15.2 % High 0-10 [facility] Neutrophil percentageOrdered By: Zaynab Pina on 10-02-2024 Neutrophils/100 WBC (Bld) 65.8 % 47-70 [facility] Nucleated red blood cell per centageOrdered By: Zaynab Pina on 10-02-2024 Nucleated RBC/100 WBC (Bld) [Ratio] 0 % 0-5 [facility] Platelet countOrdered By: Christine Pina on 10-02-2024 Platelets (Bld) [#/Vol] 160 10*3/uL 150-450 [facility] Potassium measurement (mass/ volume)Ordered By: Zaynab Pina on 10-02-2024 Potassium (Unsp spec) [Mass/Vol] 3.9 mmol/L 3.3-5.1 [facility] Prothrombin timeOrdered By: Zaynab Pina on 10-02-2024 PT Coag (PPP) [Time] 20.9 s High 11.7-14.9 [facility] RBC Auto (Bld) [#/Vol]Ordere d By: Zaynab Pina on 10-02-2024 RBC (Bld) [#/Vol] 3.46 10*6/uL Low 4.2-5.4 [facility] Serum creatinine measurement (mass/volume)Ordered By: Zaynab Pina on 10-02-2024 Creatinine [Mass/Vol] 0.58 mg/dL Low 0.70-1.20 [facility] Serum glucose measurement (m ass/volume)Ordered By: Zaynab Pina on 10-02-2024 Glucose [Mass/Vol] 80 mg/dL 70-99 [facility] Serum or plasma calcium monica urement (mass/volume)Ordered By: Zaynab Pina on 10-02-2024 Calcium [Mass/Vol] 9.0 mg/dL 7.6-11.0 [facility] Serum or plasma urea nitroge n measurement (mass/volume)Ordered By: Zaynab Pina on 10-02-2024 Urea nitrogen [Mass/Vol] 12 mg/dL 4-19 [facility] Sodium levelOrdered By: Claudio powellhasmukh Yovani on 10-02-2024 Sodium [Moles/Vol] 129 mmol/L Low 133-145 [facility] White blood cell (WBC) count Ordered By: Zaynab Pina on 10-02-2024 WBC (Bld) [#/Vol] 5.6 10*3/uL 4.4-11.0 [facility] International normalized rat io (INR) measurement by fingerstickOrdered By: Zaynab Pina on 09-29-2024 INR Coag (BldC) [Relative time] 1.9 [facility] Comment on above: Critical Value > 4.0 Whole blood prothrombin time Ordered By: Zaynab Pina on 09-29-2024 PT Coag (Bld) [Time] 20.7 s High 11.7-14.9 [facility] Absolute lymphocyte countOrd ered By: Zaynab Pina on 09-25-2024 Lymphocytes Auto (Unsp spec) [#/Vol] 1.19 10*3/uL 0.83-4.51 [facility] Absolute neutrophil countOrd ered By: Zaynab Pina on 09-25-2024 Neutrophils (Bld) [#/Vol] 3.8 10*3/uL 2.0-7.7 [facility] Anion gap in Serum or Plasma Ordered By: Zaynab Pina on 09-25-2024 Anion gap [Moles/Vol] 11 mmol/L 5-15 [facility] Automated lymphocyte count a s percentage of total leukocytesOrdered By: Zaynab Pina on 09-25-2024 Lymphocytes/100 WBC Auto (Unsp spec) 20.2 % 19-41 [facility] BUN/creatinine ratioOrdered By: Zaynab Pina on 09-25-2024 Urea nitrogen/Creatinine [Mass ratio] 29.4 mg/mg High 10-20 [facility] Basophil percentageOrdered B y: Zaynab Pina on 09-25-2024 Basophils/100 WBC (Bld) 0.7 % 0-1 [facility] Carbon dioxide, total [Moles /volume] in Central venous bloodOrdered By: Zaynab Pina on 09-25-2024 CO2 [Moles/Vol] 22.1 mmol/L 21.0-32.0 [facility] Chloride assayOrdered By: Christine amilcar Dilipjohnny on 09-25-2024 Chloride [Moles/Vol] 101 mmol/L 98-108 [facility] Eosinophil percentageOrdered By: Zaynab Pina on 09-25-2024 Eosinophils/100 WBC (Bld) 2.9 % 0-5 [facility] Erythrocyte distribution wid th ratioOrdered By: Zaynab Dilipjohnny on 09-25-2024 Erythrocyte distribution width (RBC) [Ratio] 14.3 % 11.6-14.6 [facility] Erythrocyte distribution wid th standard deviationOrdered By: amilcar Pina on 09-25-2024 Erythrocyte distribution width (RBC) [Ratio] 50.6 fl High 35.1-43.9 [facility] Glomerular filtration rate ( GFR) estimation/1.73 sq m using serum, plasma, or whole bOrdered By: Zaynab Pina on 09-25-2024 GFR/1.73 sq M.predicted among non-blacks MDRD (S/P/Bld) [Vol rate/Area] 92 mL/min/{1.73_m2} >60 [facility] Comment on above: mL/min/1.73m2 CKD-EP I Creatinine Equation (2020) Hematocrit Auto (Bld) [Volum e fraction]Ordered By: Danajoesph Cherrynatimarily on 09-25-2024 Hematocrit (Bld) [Volume fraction] 33.8 % Low 37-47 [facility] Hemoglobin measurementOrdere d By: Zaynab Dilipjohnny on 09-25-2024 Hemoglobin (Bld) [Mass/Vol] 11.3 g/dL Low 12.0-15.0 [facility] Immature granulocytes/100 WB C Auto (Bld)Ordered By: Zaynab Pina on 09-25-2024 Immature granulocytes/100 WBC (Bld) 0.500 % 0.0-0.9 [facility] Comment on above: IG% - Immature Granu locytes (promyelocytes, myelocytes and metamyelocytes) > 1% indicates that a LEFT SHIFT is Present. International normalized rat io (INR) calculationOrdered By: Zaynab Pina on 09-25-2024 INR Coag (Bld) [Relative time] 1.5 {INR} [facility] MCV (mean corpuscular volume ) determinationOrdered By: Zaynab Pina on 09-25-2024 MCV (RBC) [Entitic vol] 96.6 fL 81-99 [facility] Mean corpuscular hemoglobin (MCH) determinationOrdered By: Zaynab Pina on 09-25-2024 MCH (RBC) [Entitic mass] 32.3 pg High 27.0-32.0 [facility] Mean corpuscular hemoglobin concentration (MCHC) determinationOrdered By: amilcar Pina on 09-25-2024 MCHC (RBC) [Mass/Vol] 33.4 g/dL 32-36 [facility] Mean platelet volume determi nationOrdered By: Zaynab Pina on 09-25-2024 Platelet mean volume (Bld) [Entitic vol] 11.1 fL 6.2-12.0 [facility] Monocyte percentageOrdered B y: Zaynab Pina on 09-25-2024 Monocytes/100 WBC (Bld) 11.9 % High 0-10 [facility] Neutrophil percentageOrdered By: amilcar Pina on 09-25-2024 Neutrophils/100 WBC (Bld) 63.8 % 47-70 [facility] Nucleated red blood cell per centageOrdered By: Zaynab Pina on 09-25-2024 Nucleated RBC/100 WBC (Bld) [Ratio] 0 % 0-5 [facility] Platelet countOrdered By: Christine Pina on 09-25-2024 Platelets (Bld) [#/Vol] 175 10*3/uL 150-450 [facility] Potassium measurement (mass/ volume)Ordered By: Zaynab Pina on 09-25-2024 Potassium (Unsp spec) [Mass/Vol] 3.9 mmol/L 3.3-5.1 [facility] Prothrombin timeOrdered By: Zaynab Pina on 09-25-2024 PT Coag (PPP) [Time] 18.4 s High 11.7-14.9 [facility] RBC Auto (Bld) [#/Vol]Ordere d By: Zaynab Pina on 09-25-2024 RBC (Bld) [#/Vol] 3.50 10*6/uL Low 4.2-5.4 [facility] Serum creatinine measurement (mass/volume)Ordered By: Zaynab Pina on 09-25-2024 Creatinine [Mass/Vol] 0.62 mg/dL Low 0.70-1.20 [facility] Serum glucose measurement (m ass/volume)Ordered By: Zaynab Pina on 09-25-2024 Glucose [Mass/Vol] 79 mg/dL 70-99 [facility] Serum or plasma calcium monica urement (mass/volume)Ordered By: Zaynab Pina on 09-25-2024 Calcium [Mass/Vol] 8.9 mg/dL 7.6-11.0 [facility] Serum or plasma urea nitroge n measurement (mass/volume)Ordered By: Zaynab Pina on 09-25-2024 Urea nitrogen [Mass/Vol] 18 mg/dL 4-19 [facility] Sodium levelOrdered By: Claudio Pina on 09-25-2024 Sodium [Moles/Vol] 135 mmol/L 133-145 [facility] White blood cell (WBC) count Ordered By: Zaynab Pina on 09-25-2024 WBC (Bld) [#/Vol] 5.9 10*3/uL 4.4-11.0 [facility] normalized rat io (INR) measurement by fingerstickOrdered By: Zaynab Pina on 09-22-2024 INR Coag (BldC) [Relative time] 2.3 [facility] Comment on above: Critical Value > 4.0 Whole blood prothrombin time Ordered By: Zaynab Pina on 09-22-2024 PT Coag (Bld) [Time] 25.1 s High 11.7-14.9 [facility] Absolute lymphocyte countOrd ered By: Zaynab Pina on 09-18-2024 Lymphocytes Auto (Unsp spec) [#/Vol] 1.05 10*3/uL 0.83-4.51 [facility] Absolute neutrophil countOrd ered By: Zaynab Pina on 09-18-2024 Neutrophils (Bld) [#/Vol] 3.8 10*3/uL 2.0-7.7 [facility] Anion gap in Serum or Plasma Ordered By: Zaynab Pina on 09-18-2024 Anion gap [Moles/Vol] 13 mmol/L 5-15 [facility] Automated lymphocyte count a s percentage of total leukocytesOrdered By: Zaynab Pina on 09-18-2024 Lymphocytes/100 WBC Auto (Unsp spec) 18.2 % Low 19-41 [facility] BUN/creatinine ratioOrdered By: Zaynab Pina on 09-18-2024 Urea nitrogen/Creatinine [Mass ratio] 24.9 mg/mg High 10-20 [facility] Basophil percentageOrdered B y: Zaynab Pina on 09-18-2024 Basophils/100 WBC (Bld) 0.7 % 0-1 [facility] Carbon dioxide, total [Moles /volume] in Central venous bloodOrdered By: Zaynab Pina on 09-18-2024 CO2 [Moles/Vol] 20.4 mmol/L Low 21.0-32.0 [facility] Chloride assayOrdered By: Christine Pina on 09-18-2024 Chloride [Moles/Vol] 102 mmol/L 98-108 [facility] Eosinophil percentageOrdered By: Zaynab Pina on 09-18-2024 Eosinophils/100 WBC (Bld) 2.6 % 0-5 [facility] Erythrocyte distribution wid th ratioOrdered By: Zaynab Pina on 09-18-2024 Erythrocyte distribution width (RBC) [Ratio] 14.8 % High 11.6-14.6 [facility] Erythrocyte distribution wid th standard deviationOrdered By: elmermclouthjoesph Cherrynatimarily on 09-18-2024 Erythrocyte distribution width (RBC) [Ratio] 53.0 fl High 35.1-43.9 [facility] Glomerular filtration rate ( GFR) estimation/1.73 sq m using serum, plasma, or whole bOrdered By: amilcar Pina on 09-18-2024 GFR/1.73 sq M.predicted among non-blacks MDRD (S/P/Bld) [Vol rate/Area] 91 mL/min/{1.73_m2} >60 [facility] Comment on above: mL/min/1.73m2 CKD-EP I Creatinine Equation (2020) Hematocrit Auto (Bld) [Volum e fraction]Ordered By: [facility] Dilipmarily 09-18-2024 Hematocrit (Bld) [Volume fraction] 34.0 % Low 37-47 [facility] Hemoglobin measurementOrdere d By: elmermclouthjoesph Pina 09-18-2024 Hemoglobin (Bld) [Mass/Vol] 11.4 g/dL Low 12.0-15.0 [facility] Immature granulocytes/100 WB C Auto (Bld)Ordered By: amilcar Pina on 09-18-2024 Immature granulocytes/100 WBC (Bld) 0.700 % 0.0-0.9 [facility] Comment on above: IG% - Immature Granu locytes (promyelocytes, myelocytes and metamyelocytes) > 1% indicates that a LEFT SHIFT is Present. International normalized rat io (INR) calculationOrdered By: Zaynab Pina on 09-18-2024 INR Coag (Bld) [Relative time] 3.0 {INR} [facility] MCV (mean corpuscular volume ) determinationOrdered By: Zaynab Pina 09-18-2024 MCV (RBC) [Entitic vol] 97.4 fL 81-99 [facility] Mean corpuscular hemoglobin (MCH) determinationOrdered By: elmermclouthjoesph Pina 09-18-2024 MCH (RBC) [Entitic mass] 32.7 pg High 27.0-32.0 [facility] Mean corpuscular hemoglobin concentration (MCHC) determinationOrdered By: Zaynab Pina on 09-18-2024 MCHC (RBC) [Mass/Vol] 33.5 g/dL 32-36 [facility] Mean platelet volume determi nationOrdered By: Zaynab Pina on 09-18-2024 Platelet mean volume (Bld) [Entitic vol] 10.9 fL 6.2-12.0 [facility] Monocyte percentageOrdered B y: Zaynab Pina on 09-18-2024 Monocytes/100 WBC (Bld) 11.4 % High 0-10 [facility] Neutrophil percentageOrdered By: Zaynab Pina on 09-18-2024 Neutrophils/100 WBC (Bld) 66.4 % 47-70 [facility] Nucleated red blood cell per centageOrdered By: Zaynab Pina on 09-18-2024 Nucleated RBC/100 WBC (Bld) [Ratio] 0 % 0-5 [facility] Platelet countOrdered By: Christine elmershala Pina on 09-18-2024 Platelets (Bld) [#/Vol] 179 10*3/uL 150-450 [facility] Potassium measurement (mass/ volume)Ordered By: Zaynab Pina on 09-18-2024 Potassium (Unsp spec) [Mass/Vol] 3.9 mmol/L 3.3-5.1 [facility] Prothrombin timeOrdered By: Zaynab Pina on 09-18-2024 PT Coag (PPP) [Time] 31.5 s High 11.7-14.9 [facility] RBC Auto (Bld) [#/Vol]Ordere d By: Zaynab Pina on 09-18-2024 RBC (Bld) [#/Vol] 3.49 10*6/uL Low 4.2-5.4 [facility] Serum creatinine measurement (mass/volume)Ordered By: Zaynab Pina on 09-18-2024 Creatinine [Mass/Vol] 0.63 mg/dL Low 0.70-1.20 [facility] Serum glucose measurement (m ass/volume)Ordered By: Zaynab Pina on 09-18-2024 Glucose [Mass/Vol] 82 mg/dL 70-99 [facility] Serum or plasma calcium monica urement (mass/volume)Ordered By: Zaynab Pina on 09-18-2024 Calcium [Mass/Vol] 9.0 mg/dL 7.6-11.0 [facility] Serum or plasma urea nitroge n measurement (mass/volume)Ordered By: Zaynab Pina on 09-18-2024 Urea nitrogen [Mass/Vol] 16 mg/dL 4-19 [facility] Sodium levelOrdered By: Claudio Pina on 09-18-2024 Sodium [Moles/Vol] 135 mmol/L 133-145 [facility] White blood cell (WBC) count Ordered By: Zaynab Pina on 09-18-2024 WBC (Bld) [#/Vol] 5.8 10*3/uL 4.4-11.0 [facility] normalized rat io (INR) calculationOrdered By: Zaynab Pina on 09-15-2024 INR Coag (Bld) [Relative time] 1.8 {INR} [facility] Prothrombin timeOrdered By: Zaynab Pina on 09-15-2024 PT Coag (PPP) [Time] 21.3 s High 11.7-14.9 [facility] Absolute lymphocyte countOrd ered By: Zaynab Pina on 09-11-2024 Lymphocytes Auto (Unsp spec) [#/Vol] 1.10 10*3/uL 0.83-4.51 [facility] Absolute neutrophil countOrd ered By: Zaynab Pina on 09-11-2024 Neutrophils (Bld) [#/Vol] 3.6 10*3/uL 2.0-7.7 [facility] Anion gap in Serum or Plasma Ordered By: Zaynab Pina on 09-11-2024 Anion gap [Moles/Vol] 12 mmol/L 5-15 [facility] Automated lymphocyte count a s percentage of total leukocytesOrdered By: Zaynab Pina on 09-11-2024 Lymphocytes/100 WBC Auto (Unsp spec) 19.9 % 19-41 [facility] BUN/creatinine ratioOrdered By: Zaynab Pina on 09-11-2024 Urea nitrogen/Creatinine [Mass ratio] 24.2 mg/mg High 10-20 [facility] Basophil percentageOrdered B y: Zaynab Pina on 09-11-2024 Basophils/100 WBC (Bld) 0.5 % 0-1 [facility] Carbon dioxide, total [Moles /volume] in Central venous bloodOrdered By: amilcar Pina on 09-11-2024 CO2 [Moles/Vol] 21.7 mmol/L 21.0-32.0 [facility] Chloride assayOrdered By: Christine elmershala Pina on 09-11-2024 Chloride [Moles/Vol] 103 mmol/L 98-108 [facility] Eosinophil percentageOrdered By: Zaynab Pina on 09-11-2024 Eosinophils/100 WBC (Bld) 2.2 % 0-5 [facility] Erythrocyte distribution wid th ratioOrdered By: amilcar Pina on 09-11-2024 Erythrocyte distribution width (RBC) [Ratio] 15.5 % High 11.6-14.6 [facility] Erythrocyte distribution wid th standard deviationOrdered By: elmermclouthjoesph Cherrynatimarily on 09-11-2024 Erythrocyte distribution width (RBC) [Ratio] 55.0 fl High 35.1-43.9 [facility] Glomerular filtration rate ( GFR) estimation/1.73 sq m using serum, plasma, or whole bOrdered By: Zaynab Pina on 09-11-2024 GFR/1.73 sq M.predicted among non-blacks MDRD (S/P/Bld) [Vol rate/Area] 91 mL/min/{1.73_m2} >60 [facility] Comment on above: mL/min/1.73m2 CKD-EP I Creatinine Equation (2020) Hematocrit Auto (Bld) [Volum e fraction]Ordered By: Zaynab Pina on 09-11-2024 Hematocrit (Bld) [Volume fraction] 33.3 % Low 37-47 [facility] Hemoglobin measurementOrdere d By: Zaynab Pina on 09-11-2024 Hemoglobin (Bld) [Mass/Vol] 11.1 g/dL Low 12.0-15.0 [facility] Immature granulocytes/100 WB C Auto (Bld)Ordered By: Zaynab Pina on 09-11-2024 Immature granulocytes/100 WBC (Bld) 0.500 % 0.0-0.9 [facility] Comment on above: IG% - Immature Granu locytes (promyelocytes, myelocytes and metamyelocytes) > 1% indicates that a LEFT SHIFT is Present. International normalized rat io (INR) calculationOrdered By: Zaynab Pina on 09-11-2024 INR Coag (Bld) [Relative time] 2.1 {INR} [facility] MCV (mean corpuscular volume ) determinationOrdered By: Zaynab Pina on 09-11-2024 MCV (RBC) [Entitic vol] 96.5 fL 81-99 [facility] Mean corpuscular hemoglobin (MCH) determinationOrdered By: elmermclouthjoesph Pina on 09-11-2024 MCH (RBC) [Entitic mass] 32.2 pg High 27.0-32.0 [facility] Mean corpuscular hemoglobin concentration (MCHC) determinationOrdered By: Zaynab Pina on 09-11-2024 MCHC (RBC) [Mass/Vol] 33.3 g/dL 32-36 [facility] Mean platelet volume determi nationOrdered By: Zaynab Pina on 09-11-2024 Platelet mean volume (Bld) [Entitic vol] 10.6 fL 6.2-12.0 [facility] Monocyte percentageOrdered B y: Zaynab Pina on 09-11-2024 Monocytes/100 WBC (Bld) 12.0 % High 0-10 [facility] Neutrophil percentageOrdered By: Zaynab Pina on 09-11-2024 Neutrophils/100 WBC (Bld) 64.9 % 47-70 [facility] Nucleated red blood cell per centageOrdered By: amilcar Pina on 09-11-2024 Nucleated RBC/100 WBC (Bld) [Ratio] 0 % 0-5 [facility] Platelet countOrdered By: Christine amilcar Dilipjohnny on 09-11-2024 Platelets (Bld) [#/Vol] 202 10*3/uL 150-450 [facility] Potassium measurement (mass/ volume)Ordered By: Christineelmertanjoesph Cherrynatimarily on 09-11-2024 Potassium (Unsp spec) [Mass/Vol] 3.8 mmol/L 3.3-5.1 [facility] Prothrombin timeOrdered By: Claudiotanjoesph Cherrynatimarily on 09-11-2024 PT Coag (PPP) [Time] 23.8 s High 11.7-14.9 [facility] RBC Auto (Bld) [#/Vol]Ordere d By: Zaynab Dilipjohnny on 09-11-2024 RBC (Bld) [#/Vol] 3.45 10*6/uL Low 4.2-5.4 [facility] Serum creatinine measurement (mass/volume)Ordered By: Claudiotanjoesph Cherrynatimarily on 09-11-2024 Creatinine [Mass/Vol] 0.65 mg/dL Low 0.70-1.20 [facility] Serum glucose measurement (m ass/volume)Ordered By: Zaynab Cherrynatimarily on 09-11-2024 Glucose [Mass/Vol] 80 mg/dL 70-99 [facility] Serum or plasma calcium monica urement (mass/volume)Ordered By: Claudiotanjoesph Cherrynatimarily 09-11-2024 Calcium [Mass/Vol] 9.0 mg/dL 7.6-11.0 [facility] Serum or plasma urea nitroge n measurement (mass/volume)Ordered By: Zaynab Cherrynatimarily on 09-11-2024 Urea nitrogen [Mass/Vol] 16 mg/dL 4-19 [facility] Sodium levelOrdered By: Claudio last Dilipnatimarily on 09-11-2024 Sodium [Moles/Vol] 137 mmol/L 133-145 [facility] White blood cell (WBC) count Ordered By: Christineelmertanjoesph Cherrynatimarily 09-11-2024 WBC (Bld) [#/Vol] 5.5 10*3/uL 4.4-11.0 [facility] normalized rat io (INR) measurement by fingerstickOrdered By: Zaynab Pina on 09-08-2024 INR Coag (BldC) [Relative time] 2.4 [facility] Comment on above: Critical Value > 4.0 Whole blood prothrombin time Ordered By: Zaynab Pina on 09-08-2024 PT Coag (Bld) [Time] 25.4 s High 11.7-14.9 [facility] Absolute lymphocyte countOrd ered By: Zaynab Pina on 09-04-2024 Lymphocytes Auto (Unsp spec) [#/Vol] 1.06 10*3/uL 0.83-4.51 [facility] Absolute neutrophil countOrd ered By: Zaynab Pina on 09-04-2024 Neutrophils (Bld) [#/Vol] 4.0 10*3/uL 2.0-7.7 [facility] Anion gap in Serum or Plasma Ordered By: Zaynab Pina on 09-04-2024 Anion gap [Moles/Vol] 13 mmol/L 5-15 [facility] Automated lymphocyte count a s percentage of total leukocytesOrdered By: Zaynab Pina on 09-04-2024 Lymphocytes/100 WBC Auto (Unsp spec) 18.2 % Low 19-41 [facility] BUN/creatinine ratioOrdered By: Zaynab Pina on 09-04-2024 Urea nitrogen/Creatinine [Mass ratio] 23.8 mg/mg High 10-20 [facility] Basophil percentageOrdered B y: Zaynab Pina on 09-04-2024 Basophils/100 WBC (Bld) 0.5 % 0-1 [facility] Carbon dioxide, total [Moles /volume] in Central venous bloodOrdered By: Zaynab Pina on 09-04-2024 CO2 [Moles/Vol] 21.1 mmol/L 21.0-32.0 [facility] Chloride assayOrdered By: Christine Pina on 09-04-2024 Chloride [Moles/Vol] 102 mmol/L 98-108 [facility] Eosinophil percentageOrdered By: Zaynab Pina on 09-04-2024 Eosinophils/100 WBC (Bld) 1.9 % 0-5 [facility] Erythrocyte distribution wid th ratioOrdered By: Zaynab Pina on 09-04-2024 Erythrocyte distribution width (RBC) [Ratio] 15.8 % High 11.6-14.6 [facility] Erythrocyte distribution wid th standard deviationOrdered By: elmermclouthjoesph Pina on 09-04-2024 Erythrocyte distribution width (RBC) [Ratio] 54.7 fl High 35.1-43.9 [facility] Glomerular filtration rate ( GFR) estimation/1.73 sq m using serum, plasma, or whole bOrdered By: elmermclouthjoesph Pina on 09-04-2024 GFR/1.73 sq M.predicted among non-blacks MDRD (S/P/Bld) [Vol rate/Area] 91 mL/min/{1.73_m2} >60 [facility] Comment on above: mL/min/1.73m2 CKD-EP I Creatinine Equation (2020) Hematocrit Auto (Bld) [Volum e fraction][facility] Cherrymarily on 09-04-2024 Hematocrit (Bld) [Volume fraction] 32.5 % Low 37-47 [facility] Hemoglobin measurementOrdere d By: Zaynab Pina 09-04-2024 Hemoglobin (Bld) [Mass/Vol] 11.0 g/dL Low 12.0-15.0 [facility] Immature granulocytes/100 WB C Auto (Bld)Ordered By: Zaynab Pina 09-04-2024 Immature granulocytes/100 WBC (Bld) 0.700 % 0.0-0.9 [facility] Comment on above: IG% - Immature Granu locytes (promyelocytes, myelocytes and metamyelocytes) > 1% indicates that a LEFT SHIFT is Present. International normalized rat io (INR) calculationOrdered By: Zaynab Pina on 09-04-2024 INR Coag (Bld) [Relative time] 2.5 {INR} [facility] MCV (mean corpuscular volume ) determinationOrdered By: amilcar Pina 09-04-2024 MCV (RBC) [Entitic vol] 94.2 fL 81-99 [facility] Mean corpuscular hemoglobin (MCH) determinationOrdered By: Zaynab Pina on 09-04-2024 MCH (RBC) [Entitic mass] 31.9 pg 27.0-32.0 [facility] Mean corpuscular hemoglobin concentration (MCHC) determinationOrdered By: Zaynab Pina on 09-04-2024 MCHC (RBC) [Mass/Vol] 33.8 g/dL 32-36 [facility] Mean platelet volume determi nationOrdered By: Zaynab Pina on 09-04-2024 Platelet mean volume (Bld) [Entitic vol] 10.8 fL 6.2-12.0 [facility] Monocyte percentageOrdered B y: Zaynab Pina on 09-04-2024 Monocytes/100 WBC (Bld) 11.0 % High 0-10 [facility] Neutrophil percentageOrdered By: Zaynab Pina on 09-04-2024 Neutrophils/100 WBC (Bld) 67.7 % 47-70 [facility] Nucleated red blood cell per centageOrdered By: Zaynab Pina on 09-04-2024 Nucleated RBC/100 WBC (Bld) [Ratio] 0 % 0-5 [facility] Platelet countOrdered By: Christine elmershala Pina on 09-04-2024 Platelets (Bld) [#/Vol] 224 10*3/uL 150-450 [facility] Potassium measurement (mass/ volume)Ordered By: Zaynab Pina on 09-04-2024 Potassium (Unsp spec) [Mass/Vol] 3.9 mmol/L 3.3-5.1 [facility] Prothrombin timeOrdered By: Zaynab Pina on 09-04-2024 PT Coag (PPP) [Time] 27.6 s High 11.7-14.9 [facility] RBC Auto (Bld) [#/Vol]Ordere d By: Zaynab Pina on 09-04-2024 RBC (Bld) [#/Vol] 3.45 10*6/uL Low 4.2-5.4 [facility] Serum creatinine measurement (mass/volume)Ordered By: Zaynab Pina on 09-04-2024 Creatinine [Mass/Vol] 0.63 mg/dL Low 0.70-1.20 [facility] Serum glucose measurement (m ass/volume)Ordered By: Zaynab Pina on 09-04-2024 Glucose [Mass/Vol] 78 mg/dL 70-99 [facility] Serum or plasma calcium monica urement (mass/volume)Ordered By: Zaynab Pina on 09-04-2024 Calcium [Mass/Vol] 9.2 mg/dL 7.6-11.0 [facility] Serum or plasma urea nitroge n measurement (mass/volume)Ordered By: Zaynab Pina on 09-04-2024 Urea nitrogen [Mass/Vol] 15 mg/dL 4-19 [facility] Sodium levelOrdered By: Claudio collinsmarily Yovani on 09-04-2024 Sodium [Moles/Vol] 136 mmol/L 133-145 [facility] White blood cell (WBC) count Ordered By: Zaynab Pina on 09-04-2024 WBC (Bld) [#/Vol] 5.8 10*3/uL 4.4-11.0 [facility] International normalized rat io (INR) measurement by fingerstickOrdered By: Zaynab Pina on 09-01-2024 INR Coag (BldC) [Relative time] 2.7 [facility] Comment on above: Critical Value > 4.0 Whole blood prothrombin time Ordered By: Zaynab iPna on 09-01-2024 PT Coag (Bld) [Time] 28.1 s High 11.7-14.9 [facility] Prothrombin Time w/INRon INR Normal [facility] Comment on above: Result Comment: Bernardo cook via OM: Order cancelled - Patient discharged Performed By: #### L 600.9632 ####[facility] [address] [place], [address] PROTIME Normal 11.7-14.9 [facility] Comment on above: Result Comment: Canc elled via OM: Order cancelled - Patient discharged Performed By: #### L 365.5344 ####[facility] [address] [place], [place], [address] Absolute lymphocyte countOrd ered By: Zaynab Pina on 08-28-2024 Lymphocytes Auto (Unsp spec) [#/Vol] 1.04 10*3/uL 0.83-4.51 [facility] Absolute neutrophil countOrd ered By: Zaynab Pina on 08-28-2024 Neutrophils (Bld) [#/Vol] 4.0 10*3/uL 2.0-7.7 [facility] Anion gap in Serum or Plasma Ordered By: Zaynab Pina on 08-28-2024 Anion gap [Moles/Vol] 10 mmol/L 5-15 [facility] Automated lymphocyte count a s percentage of total leukocytesOrdered By: Zaynab Pina on 08-28-2024 Lymphocytes/100 WBC Auto (Unsp spec) 17.6 % Low 19-41 [facility] BUN/creatinine ratioOrdered By: Zaynab Pina on 08-28-2024 Urea nitrogen/Creatinine [Mass ratio] 23.6 mg/mg High 10-20 [facility] Basophil percentageOrdered B y: Zaynab Pina on 08-28-2024 Basophils/100 WBC (Bld) 0.7 % 0-1 [facility] Bilirubin, totalOrdered By: Zaynab Pina on 08-28-2024 Bilirubin [Mass/Vol] 0.42 mg/dL 0.00-1.30 [facility] Carbon dioxide, total [Moles /volume] in Central venous bloodOrdered By: Zaynab Pina on 08-28-2024 CO2 [Moles/Vol] 23.7 mmol/L 21.0-32.0 [facility] Chloride assayOrdered By: Christine Pina on 08-28-2024 Chloride [Moles/Vol] 103 mmol/L 98-108 [facility] Eosinophil percentageOrdered By: Zaynab Cherrynatimarily on 08-28-2024 Eosinophils/100 WBC (Bld) 1.7 % 0-5 [facility] Erythrocyte distribution wid th ratioOrdered By: Zaynab Pina on 08-28-2024 Erythrocyte distribution width (RBC) [Ratio] 16.8 % High 11.6-14.6 [facility] Erythrocyte distribution wid th standard deviationOrdered By: Zaynab Pina on 08-28-2024 Erythrocyte distribution width (RBC) [Ratio] 58.6 fl High 35.1-43.9 [facility] Glomerular filtration rate ( GFR) estimation/1.73 sq m using serum, plasma, or whole bOrdered By: [facility] Georgiajoesph Pina on 08-28-2024 GFR/1.73 sq M.predicted among non-blacks MDRD (S/P/Bld) [Vol rate/Area] 90 mL/min/{1.73_m2} >60 [facility] Comment on above: mL/min/1.73m2 CKD-EP I Creatinine Equation (2020) Hematocrit Auto (Bld) [Volum e fraction]Ordered By: Zaynab Pina on 08-28-2024 Hematocrit (Bld) [Volume fraction] 33.3 % Low 37-47 [facility] Hemoglobin measurementOrdere d By: Zaynab Pina on 08-28-2024 Hemoglobin (Bld) [Mass/Vol] 10.9 g/dL Low 12.0-15.0 [facility] Immature granulocytes/100 WB C Auto (Bld)Ordered By: amilcar Pina 08-28-2024 Immature granulocytes/100 WBC (Bld) 0.300 % 0.0-0.9 [facility] Comment on above: IG% - Immature Granu locytes (promyelocytes, myelocytes and metamyelocytes) > 1% indicates that a LEFT SHIFT is Present. International normalized rat io (INR) calculationOrdered By: Zaynab Pina 08-28-2024 INR Coag (Bld) [Relative time] 2.2 {INR} [facility] Laboratory - Chemistry and C hemistry - challengeOrdered By: Zaynab Pina 08-28-2024 AST [Catalytic activity/Vol] 23 U/L <32 [facility] MCV (mean corpuscular volume ) determinationOrdered By: Zaynab Pina on 08-28-2024 MCV (RBC) [Entitic vol] 96.0 fL 81-99 [facility] Mean corpuscular hemoglobin (MCH) determinationOrdered By: Zaynab Pina on 08-28-2024 MCH (RBC) [Entitic mass] 31.4 pg 27.0-32.0 [facility] Mean corpuscular hemoglobin concentration (MCHC) determinationOrdered By: Zaynab Pina on 08-28-2024 MCHC (RBC) [Mass/Vol] 32.7 g/dL 32-36 [facility] Mean platelet volume determi nationOrdered By: Zaynab Pina on 08-28-2024 Platelet mean volume (Bld) [Entitic vol] 10.9 fL 6.2-12.0 [facility] Monocyte percentageOrdered B y: Zaynab Pina on 08-28-2024 Monocytes/100 WBC (Bld) 11.5 % High 0-10 [facility] Neutrophil percentageOrdered By: Zaynab Pina on 08-28-2024 Neutrophils/100 WBC (Bld) 68.2 % 47-70 [facility] No Panel InformationOrdered By: Zaynab Pina on 08-28-2024 23 U/L <32 [facility] Nucleated red blood cell per centageOrdered By: Zaynab Pina on 08-28-2024 Nucleated RBC/100 WBC (Bld) [Ratio] 0 % 0-5 [facility] Platelet countOrdered By: Christine Pina on 08-28-2024 Platelets (Bld) [#/Vol] 183 10*3/uL 150-450 [facility] Potassium measurement (mass/ volume)Ordered By: Zaynab Pina on 08-28-2024 Potassium (Unsp spec) [Mass/Vol] 4.0 mmol/L 3.3-5.1 [facility] Prothrombin Time w/INRon INR Normal [facility] Comment on above: Result Comment: Canc elled via OM: Order cancelled - Patient discharged Performed By: #### L 300.3900 #### [facility] [address] [place], [place], [address] PROTIME Normal 11.7-14.9 [facility] Comment on above: Result Comment: Canc elled via OM: Order cancelled - Patient discharged Performed By: #### L 300.3900 #### [facility] [address] [place], [address] Prothrombin timeOrdered By: Zaynab Pina on 08-28-2024 PT Coag (PPP) [Time] 24.5 s High 11.7-14.9 [facility] RBC Auto (Bld) [#/Vol]Ordere d By: Zaynab Pina on 08-28-2024 RBC (Bld) [#/Vol] 3.47 10*6/uL Low 4.2-5.4 [facility] Serum creatinine measurement (mass/volume)Ordered By: Zaynab Pina on 08-28-2024 Creatinine [Mass/Vol] 0.66 mg/dL Low 0.70-1.20 [facility] Serum globulin measurementOr dered By: Zaynab Pina on 08-28-2024 Globulin (S) [Mass/Vol] 2.6 g/dL 2.2-4.2 [facility] Serum glucose measurement (m ass/volume)Ordered By: Zaynab Pina on 08-28-2024 Glucose [Mass/Vol] 88 mg/dL 70-99 [facility] Serum or plasma alanine llamas otransferase (ALT) measurementOrdered By: Zaynab Pina on 08-28-2024 ALT [Catalytic activity/Vol] 16 U/L <35 [facility] Serum or plasma albumin monica urement (mass/volume)Ordered By: Zaynab Pina on 08-28-2024 Albumin [Mass/Vol] 3.8 g/dL 3.4-4.8 [facility] Serum or plasma albumin/glob ulin mass ratioOrdered By: Zaynab Pina on 08-28-2024 Albumin/Globulin [Mass ratio] 1.5 {ratio} 0.9-2.4 [facility] Serum or plasma alkaline juan m sphatase measurementOrdered By: Zaynab Pina on 08-28-2024 ALP [Catalytic activity/Vol] 101 U/L 35-104 [facility] Serum or plasma calcium monica urement (mass/volume)Ordered By: Zaynab Dilipnatimarily on 08-28-2024 Calcium [Mass/Vol] 9.1 mg/dL 7.6-11.0 [facility] Serum or plasma urea nitroge n measurement (mass/volume)Ordered By: Claudiomclouthjoesph Dilipjohnny on 08-28-2024 Urea nitrogen [Mass/Vol] 16 mg/dL 4-19 [facility] Sodium levelOrdered By: Claudio Pina on 08-28-2024 Sodium [Moles/Vol] 137 mmol/L 133-145 [facility] Total proteinOrdered By: Malik Pina on 08-28-2024 Protein [Mass/Vol] 6.3 g/dL 5.9-8.4 [facility] White blood cell (WBC) count Ordered By: Zaynab Dilipjohnny on 08-28-2024 WBC (Bld) [#/Vol] 5.9 10*3/uL 4.4-11.0 [facility] International normalized rat io (INR) calculationOrdered By: Jasmyn Chan on 08-27-2024 INR Coag (Bld) [Relative time] 1.7 {INR} [facility] Prothrombin Time w/INRon INR Coag (PPP) [Relative time] 1.7 {INR} Normal [facility] Comment on above: Performed By: #### L 300.3900 #### [facility] [address] [place], [place], [id number] PT Coag (PPP) [Time] 20.6 s High 11.7-14.9 [facility] Comment on above: Performed By: #### L 300.3900 #### [facility] [address] [place], [address] Prothrombin timeOrdered By: Jasmyn Chan on 08-27-2024 PT Coag (PPP) [Time] 20.6 s High 11.7-14.9 [facility] Prothrombin Time w/INRon INR Coag (PPP) [Relative time] 1.4 {INR} Normal [facility] Comment on above: Performed By: #### L 300.3900 ####[facility] [address] [place], [address] PT Coag (PPP) [Time] 17.7 s High 11.7-14.9 [facility] Comment on above: Performed By: #### L 300.3900 ####[facility] [address] [place], [address] Prothrombin Time w/INRon INR Coag (PPP) [Relative time] 1.4 {INR} Normal [facility] Comment on above: Performed By: #### L 300.3900 ####[facility] [address] [place], [address] PT Coag (PPP) [Time] 17.7 s High 11.7-14.9 [facility] Comment on above: Performed By: #### L 300.3900 ####[facility] [address] [place], [address] Absolute lymphocyte countOrd ered By: Erasmo House on 08-24-2024 Lymphocytes Auto (Unsp spec) [#/Vol] 0.85 10*3/uL 0.83-4.51 [facility] Absolute neutrophil countOrd ered By: Erasmo House on 08-24-2024 Neutrophils (Bld) [#/Vol] 3.7 10*3/uL 2.0-7.7 [facility] Anion gap in Serum or Plasma Ordered By: Erasmo House on 08-24-2024 Anion gap [Moles/Vol] 13 mmol/L 5-15 [facility] Automated lymphocyte count a s percentage of total leukocytesOrdered By: Erasmo House on 08-24-2024 Lymphocytes/100 WBC Auto (Unsp spec) 15.8 % Low 19-41 [facility] BUN/creatinine ratioOrdered By: Erasmo House on 08-24-2024 Urea nitrogen/Creatinine [Mass ratio] 22.5 mg/mg High 10-20 [facility] Basic Metabolic Profile (BMP )on 08-24-2024 BUN/CRE 22.5 RATIO High 10-20 [facility] Comment on above: Performed By: #### L 100.0100, L300.3900, L500.2500 ####[facility] [address] [place], [address] Calcium [Mass/Vol] 9.0 mg/dL Normal 7.6-11.0 [facility] Comment on above: Performed By: #### L 100.0100, L300.3900, L500.2500 ####[facility] [address] [place], [address] Chloride [Moles/Vol] 105 mmol/L Normal 98-108 [facility] Comment on above: Performed By: #### L 100.0100, L300.3900, L500.2500 ####[facility] [address] [place], [address] CO2 [Moles/Vol] 21.9 mmol/L Normal 21.0-32.0 [facility] Comment on above: Performed By: #### L 100.0100, L300.3900, L500.2500 ####[facility] [address] [place], [address] Creatinine [Mass/Vol] 0.65 mg/dL Low 0.70-1.20 [facility] Comment on above: Performed By: #### L 100.0100, L300.3900, L500.2500 ####[facility] [address] [place], [address] ECRCL 48.72 ml/min Low 50-250 [facility] Comment on above: Performed By: #### L 100.0100, L300.3900, L500.2500 ####[facility] [address] [place], [address] GAP 13 Normal 5-15 [facility] Comment on above: Performed By: #### L 100.0100, L300.3900, L500.2500 ####[facility] [address] [place], [address] GFR/1.73 sq M.predicted among non-blacks MDRD (S/P/Bld) [Vol rate/Area] 91 mL/min/{1.73_m2} Normal >60 [facility] Comment on above: Result Comment: mL/m in/1.73m2 CKD-EPI Creatinine Equation (2020) Performed By: #### L 100.0100, L300.3900, L500.2500 ####[facility] [address] [place], [address] Glucose [Mass/Vol] 90 mg/dL Normal 70-99 [facility] Comment on above: Performed By: #### L 100.0100, L300.3900, L500.2500 ####[facility] [address] [place], [address] Potassium [Moles/Vol] 3.9 mmol/L Normal 3.3-5.1 [facility] Comment on above: Performed By: #### L 100.0100, L300.3900, L500.2500 ####[facility] [address] [place], [address] Sodium [Moles/Vol] 140 mmol/L Normal 133-145 [facility] Comment on above: Performed By: #### L 100.0100, L300.3900, L500.2500 ####[facility] [address] [place], [address] Urea nitrogen [Mass/Vol] 15 mg/dL Normal 4-19 [facility] Comment on above: Performed By: #### L 100.0100, L300.3900, L500.2500 ####[facility] [address] [place], [address] Basophil percentageOrdered B y: Erasmo House on 08-24-2024 Basophils/100 WBC (Bld) 0.6 % 0-1 [facility] CBC W/Diff, Automatedon -2024 Absolute Lymph 0.85 X10 3/uL Normal 0.83-4.51 [facility] Comment on above: Performed By: #### L 100.0100, L300.3900, L500.2500 ####[facility] [address] [place], [address] Absolute Neut 3.7 X10 3/uL Normal 2.0-7.7 [facility] Comment on above: Performed By: #### L 100.0100, L300.3900, L500.2500 ####[facility] [address] [place], [address] Basophils/100 WBC (Bld) 0.6 % Normal 0-1 [facility] Comment on above: Performed By: #### L 100.0100, L300.3900, L500.2500 ####[facility] [address] [place], [address] Eosinophils/100 WBC (Bld) 1.5 % Normal 0-5 [facility] Comment on above: Performed By: #### L 100.0100, L300.3900, L500.2500 ####[facility] [address] [place], [address] Erythrocyte distribution width (RBC) [Ratio] 17.2 % High 11.6-14.6 [facility] Comment on above: Performed By: #### L 100.0100, L300.3900, L500.2500 ####[facility] [address] [place], [address] Hematocrit (Bld) [Volume fraction] 34.6 % Low 37-47 [facility] Comment on above: Performed By: #### L 100.0100, L300.3900, L500.2500 ####[facility] [address] [place], [address] Hemoglobin (Bld) [Mass/Vol] 11.4 g/dL Low 12.0-15.0 [facility] Comment on above: Performed By: #### L 100.0100, L300.3900, L500.2500 ####[facility] [address] [place], [address] IG% 0.400 Normal 0.0-0.9 [facility] Comment on above: Result Comment: IG% - Immature Granulocytes (promyelocytes, myelocytes and metamyelocytes) > 1% indicates that a LEFT SHIFT is Present. Performed By: #### L 100.0100, L300.3900, L500.2500 ####[facility] [address] [place], [address] Lymphocytes/100 WBC (Bld) 15.8 % Low 19-41 [facility] Comment on above: Performed By: #### L 100.0100, L300.3900, L500.2500 ####[facility] [address] [place], [address] MCH (RBC) [Entitic mass] 31.8 pg Normal 27.0-32.0 [facility] Comment on above: Performed By: #### L 100.0100, L300.3900, L500.2500 ####[facility] [address] [place], [address] MCHC (RBC) [Mass/Vol] 32.9 g/dL Normal 32-36 [facility] Comment on above: Performed By: #### L 100.0100, L300.3900, L500.2500 ####[facility] [address] [place], [address] MCV (RBC) [Entitic vol] 96.6 fL Normal 81-99 [facility] Comment on above: Performed By: #### L 100.0100, L300.3900, L500.2500 ####[facility] [address] [place], [address] Monocytes/100 WBC (Bld) 12.6 % High 0-10 [facility] Comment on above: Performed By: #### L 100.0100, L300.3900, L500.2500 ####[facility] [address] [place], [address] Neutrophils/100 WBC (Bld) 69.1 % Normal 47-70 [facility] Comment on above: Performed By: #### L 100.0100, L300.3900, L500.2500 ####[facility] [address] [place], [address] Nucleated RBC (Bld) [#/Vol] 0 10*3/uL Normal 0-5 [facility] Comment on above: Performed By: #### L 100.0100, L300.3900, L500.2500 ####[facility] [address] [place], [address] Platelet mean volume (Bld) [Entitic vol] 11.0 fL Normal 6.2-12.0 [facility] Comment on above: Performed By: #### L 100.0100, L300.3900, L500.2500 ####[facility] [address] [place], [address] Platelets (Bld) [#/Vol] 154 10*3/uL Normal 150-450 [facility] Comment on above: Performed By: #### L 100.0100, L300.3900, L500.2500 ####[facility] [address] [place], [address] RBC (Bld) [#/Vol] 3.58 10*6/uL Low 4.2-5.4 [facility] Comment on above: Performed By: #### L 100.0100, L300.3900, L500.2500 ####[facility] [address] [place], [address] RDW SD 61.1 fl High 35.1-43.9 [facility] Comment on above: Performed By: #### L 100.0100, L300.3900, L500.2500 ####[facility] [address] [place], [address] WBC (Bld) [#/Vol] 5.4 10*3/uL Normal 4.4-11.0 [facility] Comment on above: Performed By: #### L 100.0100, L300.3900, L500.2500 ####[facility] [address] [place], [address] Carbon dioxide, total [Moles /volume] in Central venous bloodOrdered By: Erasmo House on 08-24-2024 CO2 [Moles/Vol] 21.9 mmol/L 21.0-32.0 [facility] Chloride assayOrdered By: Edouard House on 08-24-2024 Chloride [Moles/Vol] 105 mmol/L 98-108 [facility] Eosinophil percentageOrdered By: Erasmo House on 08-24-2024 Eosinophils/100 WBC (Bld) 1.5 % 0-5 [facility] Erythrocyte distribution wid th ratioOrdered By: Erasmo House on 08-24-2024 Erythrocyte distribution width (RBC) [Ratio] 17.2 % High 11.6-14.6 [facility] Erythrocyte distribution wid th standard deviationOrdered By: Erasmo House on 08-24-2024 Erythrocyte distribution width (RBC) [Ratio] 61.1 fl High 35.1-43.9 [facility] Glomerular filtration rate ( GFR) estimation/1.73 sq m using serum, plasma, or whole bOrdered By: Erasmo House on 08-24-2024 GFR/1.73 sq M.predicted among non-blacks MDRD (S/P/Bld) [Vol rate/Area] 91 mL/min/{1.73_m2} >60 [facility] Comment on above: mL/min/1.73m2 CKD-EP I Creatinine Equation (2020) Hematocrit Auto (Bld) [Volum e fraction]Ordered By: Erasmo House on 08-24-2024 Hematocrit (Bld) [Volume fraction] 34.6 % Low 37-47 [facility] Hemoglobin measurementOrdere d By: Erasmo House on 08-24-2024 Hemoglobin (Bld) [Mass/Vol] 11.4 g/dL Low 12.0-15.0 [facility] Immature granulocytes/100 WB C Auto (Bld)Ordered By: Erasmo House on 08-24-2024 Immature granulocytes/100 WBC (Bld) 0.400 % 0.0-0.9 [facility] Comment on above: IG% - Immature Granu locytes (promyelocytes, myelocytes and metamyelocytes) > 1% indicates that a LEFT SHIFT is Present. MCV (mean corpuscular volume ) determinationOrdered By: rEasmo House on 08-24-2024 MCV (RBC) [Entitic vol] 96.6 fL 81-99 [facility] Mean corpuscular hemoglobin (MCH) determinationOrdered By: Erasmo House on 08-24-2024 MCH (RBC) [Entitic mass] 31.8 pg 27.0-32.0 [facility] Mean corpuscular hemoglobin concentration (MCHC) determinationOrdered By: Erasmo House on 08-24-2024 MCHC (RBC) [Mass/Vol] 32.9 g/dL 32-36 [facility] Mean platelet volume determi nationOrdered By: Erasmo House on 08-24-2024 Platelet mean volume (Bld) [Entitic vol] 11.0 fL 6.2-12.0 [facility] Monocyte percentageOrdered B y: Erasmo House on 08-24-2024 Monocytes/100 WBC (Bld) 12.6 % High 0-10 [facility] Neutrophil percentageOrdered By: Erasmo House on 08-24-2024 Neutrophils/100 WBC (Bld) 69.1 % 47-70 [facility] Nucleated red blood cell per centageOrdered By: Erasmo House on 08-24-2024 Nucleated RBC/100 WBC (Bld) [Ratio] 0 % 0-5 [facility] Platelet countOrdered By: Edouard House on 08-24-2024 Platelets (Bld) [#/Vol] 154 10*3/uL 150-450 [facility] Potassium measurement (mass/ volume)Ordered By: Erasmo House on 08-24-2024 Potassium (Unsp spec) [Mass/Vol] 3.9 mmol/L 3.3-5.1 [facility] Prothrombin Time w/INRon INR Coag (PPP) [Relative time] 1.3 {INR} Normal [facility] Comment on above: Performed By: #### L 100.0100, L300.3900, L500.2500 ####[facility] [address] [place], [address] PT Coag (PPP) [Time] 16.3 s High 11.7-14.9 [facility] Comment on above: Performed By: #### L 100.0100, L300.3900, L500.2500 ####[facility] [address] [place], [address] RBC Auto (Bld) [#/Vol]Ordere d By: Erasmo House on 08-24-2024 RBC (Bld) [#/Vol] 3.58 10*6/uL Low 4.2-5.4 [facility] Serum creatinine measurement (mass/volume)Ordered By: Erasmo House on 08-24-2024 Creatinine [Mass/Vol] 0.65 mg/dL Low 0.70-1.20 [facility] [facility] Serum glucose measurement (m ass/volume)Ordered By: Erasmo House on 08-24-2024 Glucose [Mass/Vol] 90 mg/dL 70-99 [facility] Serum or plasma calcium monica urement (mass/volume)Ordered By: Erasmo House on 08-24-2024 Calcium [Mass/Vol] 9.0 mg/dL 7.6-11.0 [facility] Serum or plasma urea nitroge n measurement (mass/volume)Ordered By: Erasmo House on 08-24-2024 Urea nitrogen [Mass/Vol] 15 mg/dL 4-19 [facility] Sodium levelOrdered By: Iwona House on 08-24-2024 Sodium [Moles/Vol] 140 mmol/L 133-145 [facility] White blood cell (WBC) count Ordered By: Erasmo House on 08-24-2024 WBC (Bld) [#/Vol] 5.4 10*3/uL 4.4-11.0 [facility] Absolute lymphocyte countOrd ered By: Ron Mariscal on 08-23-2024 Lymphocytes Auto (Unsp spec) [#/Vol] 0.64 10*3/uL Low 0.83-4.51 [facility] Absolute neutrophil countOrd ered By: Ron Mariscal on 08-23-2024 Neutrophils (Bld) [#/Vol] 6.5 10*3/uL 2.0-7.7 [facility] Anion gap in Serum or Plasma Ordered By: Ron Mariscal on 08-23-2024 Anion gap [Moles/Vol] 14 mmol/L 5-15 [facility] Automated lymphocyte count a s percentage of total leukocytesOrdered By: Ron Mariscal on 08-23-2024 Lymphocytes/100 WBC Auto (Unsp spec) 8.1 % Low 19-41 [facility] BUN/creatinine ratioOrdered By: Ron Mariscal on 08-23-2024 Urea nitrogen/Creatinine [Mass ratio] 34.8 mg/mg High 12-08 [facility] Basic Metabolic Profile (BMP )on 08-23-2024 BUN/CRE 34.8 RATIO High 12-08 [facility] Comment on above: Performed By: #### L 500.2500, L100.0100 ####[facility] [address] [place], [place], [address] Calcium [Mass/Vol] 9.2 mg/dL Normal 7.6-11.0 [facility] Comment on above: Performed By: #### L 500.2500, L100.0100 ####[facility] [address] [place], [address] Chloride [Moles/Vol] 104 mmol/L Normal 98-108 [facility] Comment on above: Performed By: #### L 500.2500, L100.0100 ####[facility] [address] [place], [address] CO2 [Moles/Vol] 22.1 mmol/L Normal 21.0-32.0 [facility] Comment on above: Performed By: #### L 500.2500, L100.0100 ####[facility] [address] [place], [address] Creatinine [Mass/Vol] 0.63 mg/dL Low 0.70-1.20 [facility] Comment on above: Performed By: #### L 500.2500, L100.0100 ####[facility] [address] [place], [address] ECRCL 48.72 ml/min Low 50-250 [facility] Comment on above: Performed By: #### L 500.2500, L100.0100 ####[facility] [address] [place], [address] GAP 14 Normal 5-15 [facility] Comment on above: Performed By: #### L 500.2500, L100.0100 ####[facility] [address] [place], [address] GFR/1.73 sq M.predicted among non-blacks MDRD (S/P/Bld) [Vol rate/Area] 91 mL/min/{1.73_m2} Normal >60 [facility] Comment on above: Result Comment: mL/m in/1.73m2 CKD-EPI Creatinine Equation (2020) Performed By: #### L 500.2500, L100.0100 ####[facility] [address] [place], [address] Glucose [Mass/Vol] 116 mg/dL High 70-99 [facility] Comment on above: Performed By: #### L 500.2500, L100.0100 ####[facility] [address] [place], [address] Potassium [Moles/Vol] 3.9 mmol/L Normal 3.3-5.1 [facility] Comment on above: Performed By: #### L 500.2500, L100.0100 ####[facility] [address] [place], [address] Sodium [Moles/Vol] 140 mmol/L Normal 133-145 [facility] Comment on above: Performed By: #### L 500.2500, L100.0100 ####[facility] [address] [place], [address] Urea nitrogen [Mass/Vol] 22 mg/dL High 4-19 [facility] Comment on above: Performed By: #### L 500.2500, L100.0100 ####[facility] [address] [place], [address] Basophil percentageOrdered B y: Ron Mariscal on 08-23-2024 Basophils/100 WBC (Bld) 0.4 % 0-1 [facility] Brain/Head without Contrasto n 08-23-2024 Brain/Head without Contrast [facility] Imaging Services [address] [place] [address] Brain/Head without Contrast MR#: [id number] Acct: [id number] Name: HAYDEE BUSTAMANTE Rep #: [id number] : 1945 F 79 From: Jasmyn Herrera MD PCP: Dr. Claudine Durán MD Status: REG ER Study: Brain/Head without Contrast Date of Exam: 07/13 Exam# [id number] Ordering Dr: Ron Mariscal MD EXAM: CT [...] evaluation with MRI is recommended. Reading Location: [facility] CC: Dr. Ron Mariscal MD; Dr. 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: Signed Normal [facility] CBC W/Diff, Automatedon Absolute Lymph 0.64 X10 3/uL Low 0.83-4.51 [facility] Comment on above: Performed By: #### L 500.2500, L100.0100 ####[facility] [address] [place], [address] Absolute Neut 6.5 X10 3/uL Normal 2.0-7.7 [facility] Comment on above: Performed By: #### L 500.2500, L100.0100 ####[facility] [address] [place], [address] Basophils/100 WBC (Bld) 0.4 % Normal 0-1 [facility] Comment on above: Performed By: #### L 500.2500, L100.0100 ####[facility] [address] [place], [address] Eosinophils/100 WBC (Bld) 0.1 % Normal 0-5 [facility] Comment on above: Performed By: #### L 500.2500, L100.0100 ####[facility] [address] [place], [address] Erythrocyte distribution width (RBC) [Ratio] 17.0 % High 11.6-14.6 [facility] Comment on above: Performed By: #### L 500.2500, L100.0100 ####[facility] [address] [place], [address] Hematocrit (Bld) [Volume fraction] 33.9 % Low 37-47 [facility] Comment on above: Performed By: #### L 500.2500, L100.0100 ####[facility] [address] [place], [address] Hemoglobin (Bld) [Mass/Vol] 11.3 g/dL Low 12.0-15.0 [facility] Comment on above: Performed By: #### L 500.2500, L100.0100 ####[facility] [address] [place], [address] IG% 0.500 Normal 0.0-0.9 [facility] Comment on above: Result Comment: IG% - Immature Granulocytes (promyelocytes, myelocytes and metamyelocytes) > 1% indicates that a LEFT SHIFT is Present. Performed By: #### L 500.2500, L100.0100 ####[facility] [address] [place], [address] Lymphocytes/100 WBC (Bld) 8.1 % Low 19-41 [facility] Comment on above: Performed By: #### L 500.2500, L100.0100 ####[facility] [address] [place], [address] MCH (RBC) [Entitic mass] 32.1 pg High 27.0-32.0 [facility] Comment on above: Performed By: #### L 500.2500, L100.0100 ####[facility] [address] [place], [address] MCHC (RBC) [Mass/Vol] 33.3 g/dL Normal 32-36 [facility] Comment on above: Performed By: #### L 500.2500, L100.0100 ####[facility] [address] [place], [address] MCV (RBC) [Entitic vol] 96.3 fL Normal 81-99 [facility] Comment on above: Performed By: #### L 500.2500, L100.0100 ####[facility] [address] [place], [address] Monocytes/100 WBC (Bld) 8.6 % Normal 0-10 [facility] Comment on above: Performed By: #### L 500.2500, L100.0100 ####[facility] [address] [place], [address] Neutrophils/100 WBC (Bld) 82.3 % High 47-70 [facility] Comment on above: Performed By: #### L 500.2500, L100.0100 ####[facility] [address] [place], [address] Nucleated RBC (Bld) [#/Vol] 0 10*3/uL Normal 0-5 [facility] Comment on above: Performed By: #### L 500.2500, L100.0100 ####[facility] [address] [place], [address] Platelet mean volume (Bld) [Entitic vol] 10.9 fL Normal 6.2-12.0 [facility] Comment on above: Performed By: #### L 500.2500, L100.0100 ####[facility] [address] [place], [address] Platelets (Bld) [#/Vol] 182 10*3/uL Normal 150-450 [facility] Comment on above: Performed By: #### L 500.2500, L100.0100 ####[facility] [address] [place], [address] RBC (Bld) [#/Vol] 3.52 10*6/uL Low 4.2-5.4 [facility] Comment on above: Performed By: #### L 500.2500, L100.0100 ####[facility] [address] [place], [address] RDW SD 58.6 fl High 35.1-43.9 [facility] Comment on above: Performed By: #### L 500.2500, L100.0100 ####[facility] [address] [place], [address] WBC (Bld) [#/Vol] 7.9 10*3/uL Normal 4.4-11.0 [facility] Comment on above: Performed By: #### L 500.2500, L100.0100 ####[facility] [address] [place], [address] CPK Total, Creatine Kinaseon 08-23-2024 CPK TOTAL 128 U/L Normal 24-195 [facility] Comment on above: Performed By: #### L 501.3620 ####[facility] [address] [place], [address] Carbon dioxide, total [Moles /volume] in Central venous bloodOrdered By: Ron Mariscal on 08-23-2024 CO2 [Moles/Vol] 22.1 mmol/L 21.0-32.0 [facility] Chloride assayOrdered By: Kaitlynn Mraiscal on 08-23-2024 Chloride [Moles/Vol] 104 mmol/L 98-108 [facility] Consultation - Orthopedicson 08-23-2024 Consultation - Orthopedics [facility] Medical Records Department [address] [place] [address] Consultation - Orthopedics 08/23/24 1354 MR#: [id number] Acct: [id number] Name: HAYDEE BUSTAMANTE Rep #: [id number] : 1945 79 From: Burak Amanda MD PCP: Dr. Claudine Durán MD Status:ADM ADAIR Location: [place] [address] HPI Consult Data Date of Consult: 08/23/24 [...] was admitted for placement and likely rehabilitation. [facility] Medical History Hypertension GERD (gastroesophageal reflux disease) [...] DAILY supplement 4 10/01/23 History tablet) vitamins A,C,L-vclj-fkjvfa 2,148 2 tab PO BID eye health [...] Rx (Voltaren Arthritis Pain) #100 grams omega 0-bgl-rao-fish oil 1,200 mg 1 cap PO DAILY [...] 06/20/24 10:10 (more content not included)... Normal [facility] Emergency Department Summary on 08-23-2024 Emergency Department Summary [facility] Medical Records Department [address] [place] [address] Emergency Department Summary 08/23/24 MR#: [id number] Acct: [id number] Name: HAYDEE BUSTAMANTE Rep #: [id number] : 1945 79 From: Ron Mariscal MD [...] at any point in time or syncope. Hlesh-nbis-pwanzxgk. Lives by herself. 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 She states this morning she laid there [...] to if her wrist was not injured [facility] Medical History Hypertension GERD (gastroesophageal [...] DAILY supplement 4 10/01/23 History tablet) vitamins A,C,Y-urwa-gcdfru 2,148 2 tab PO BID eye health [...] tabs Instructions: ON HOLD FOR COLONOSCOPY omega 2-hco-whi-fish oil 1,200 mg 1 cap PO DAILY [...] Severe Anaph (more content not included)... Normal [facility] Eosinophil percentageOrdered By: Ron Mariscal on 08-23-2024 Eosinophils/100 WBC (Bld) 0.1 % 0-5 [facility] Erythrocyte distribution wid th ratioOrdered By: Ron Loida on 08-23-2024 Erythrocyte distribution width (RBC) [Ratio] 17.0 % High 11.6-14.6 [facility] Erythrocyte distribution wid th standard deviationOrdered By: Ron Wilsonone on 08-23-2024 Erythrocyte distribution width (RBC) [Ratio] 58.6 fl High 35.1-43.9 [facility] Glomerular filtration rate ( GFR) estimation/1.73 sq m using serum, plasma, or whole bOrdered By: Ron Mariscal on 08-23-2024 GFR/1.73 sq M.predicted among non-blacks MDRD (S/P/Bld) [Vol rate/Area] 91 mL/min/{1.73_m2} >60 [facility] Comment on above: mL/min/1.73m2 CKD-EP I Creatinine Equation (2020) H AND P Exam - Hospitaliston 08-23-2024 H&P Exam - Hospitalist [facility] Medical Records Department [address] [place] [address] H P Exam - Hospitalist 08/23/24 1023 MR#: [id number] Acct: [id number] Name: HAYDEE BUSTAMANTE Rep #: [id number] : 1945 79 From: Erasmo House MD PCP: Dr. Claudine Durán MD Status:ADM ADAIR Location: [address] - General General Date of Admission: 08/23/24 [...] x-ray done in the ED were reviewed. [facility] Medical History Hypertension GERD (gastroesophageal reflux disease) [...] DAILY supplement 4 10/01/23 History tablet) vitamins A,C,I-afjn-ybrhfh 2,148 2 tab PO BID eye health [...] Rx (Voltaren Arthritis Pain) #100 grams omega 8-hdk-ktl-fish oil 1,200 mg 1 cap PO DAILY [...] smoker alcoho (more content not included)... Normal [facility] Hematocrit Auto (Bld) [Volum e fraction]Ordered By: Ron Mariscal on 08-23-2024 Hematocrit (Bld) [Volume fraction] 33.9 % Low 37-47 [facility] Hemoglobin measurementOrdere d By: Ron Mariscal on 08-23-2024 Hemoglobin (Bld) [Mass/Vol] 11.3 g/dL Low 12.0-15.0 [facility] Immature granulocytes/100 WB C Auto (Bld)Ordered By: Ron Mariscal on 08-23-2024 Immature granulocytes/100 WBC (Bld) 0.500 % 0.0-0.9 [facility] Comment on above: IG% - Immature Granu locytes (promyelocytes, myelocytes and metamyelocytes) > 1% indicates that a LEFT SHIFT is Present. International normalized rat io (INR) calculationOrdered By: Ron Mariscal on 08-23-2024 INR Coag (Bld) [Relative time] 1.2 {INR} [facility] MCV (mean corpuscular volume ) determinationOrdered By: Ron Mariscal on 08-23-2024 MCV (RBC) [Entitic vol] 96.3 fL 81-99 [facility] Magnesiumon 08-23-2024 Magnesium [Mass/Vol] 2.1 mg/dL Normal 1.5-2.2 [facility] Comment on above: Performed By: #### L 501.5200 ####[facility] [address] [place], [address] Magnesium measurement (mass/ volume)Ordered By: Erasmo House on 08-23-2024 Magnesium (Unsp spec) [Mass/Vol] 2.1 mg/dL 1.5-2.2 [facility] Mean corpuscular hemoglobin (MCH) determinationOrdered By: Ron Mariscal on 08-23-2024 MCH (RBC) [Entitic mass] 32.1 pg High 27.0-32.0 [facility] Mean corpuscular hemoglobin concentration (MCHC) determinationOrdered By: Ron Mariscal on 08-23-2024 MCHC (RBC) [Mass/Vol] 33.3 g/dL 32-36 [facility] Mean platelet volume determi nationOrdered By: Ron Mariscal on 08-23-2024 Platelet mean volume (Bld) [Entitic vol] 10.9 fL 6.2-12.0 [facility] Monocyte percentageOrdered B y: Ron Mariscal on 08-23-2024 Monocytes/100 WBC (Bld) 8.6 % 0-10 [facility] Neutrophil percentageOrdered By: Ron Mariscal on 08-23-2024 Neutrophils/100 WBC (Bld) 82.3 % High 47-70 [facility] Nucleated red blood cell per centageOrdered By: Ron Mariscal on 08-23-2024 Nucleated RBC/100 WBC (Bld) [Ratio] 0 % 0-5 [facility] Platelet countOrdered By: Kaitlynn Mariscal on 08-23-2024 Platelets (Bld) [#/Vol] 182 10*3/uL 150-450 [facility] Potassium measurement (mass/ volume)Ordered By: Ron Mariscal on 08-23-2024 Potassium (Unsp spec) [Mass/Vol] 3.9 mmol/L 3.3-5.1 [facility] Prothrombin Time w/INRon INR Coag (PPP) [Relative time] 1.2 {INR} Normal [facility] Comment on above: Performed By: #### L 300.3900 ####[facility] [address] [place], [place], [address] PT Coag (PPP) [Time] 15.5 s High 11.7-14.9 [facility] Comment on above: Performed By: #### L 300.3900 ####[facility] [address] [place], [address] Prothrombin timeOrdered By: Ron Mariscal on 08-23-2024 PT Coag (PPP) [Time] 15.5 s High 11.7-14.9 [facility] RBC Auto (Bld) [#/Vol]Ordere d By: Ron Mariscal on 08-23-2024 RBC (Bld) [#/Vol] 3.52 10*6/uL Low 4.2-5.4 [facility] Serum creatinine measurement (mass/volume)Ordered By: Ron Mariscal on 08-23-2024 Creatinine [Mass/Vol] 0.63 mg/dL Low 0.70-1.20 [facility] Serum glucose measurement (m ass/volume)Ordered By: Ron Mariscal on 08-23-2024 Glucose [Mass/Vol] 116 mg/dL High 70-99 [facility] Serum or plasma calcium monica urement (mass/volume)Ordered By: Ron Mariscal on 08-23-2024 Calcium [Mass/Vol] 9.2 mg/dL 7.6-11.0 [facility] Serum or plasma creatine kin ase activityOrdered By: Ron Mariscal on 08-23-2024 CK [Catalytic activity/Vol] 128 U/L 24-195 [facility] Serum or plasma urea nitroge n measurement (mass/volume)Ordered By: Ron Mariscal on 08-23-2024 Urea nitrogen [Mass/Vol] 22 mg/dL High 4-19 [facility] Sodium levelOrdered By: Cordell Mariscal on 08-23-2024 Sodium [Moles/Vol] 140 mmol/L 133-145 [facility] White blood cell (WBC) count Ordered By: Ron Mariscal on 08-23-2024 WBC (Bld) [#/Vol] 7.9 10*3/uL 4.4-11.0 [facility] Wrist min 3 Viewson 08-24-19 25 Wrist min 3 Views [facility] Imaging Services [address] [place] [address] Wrist min 3 Views MR#: [id number] Acct: [id number] Name: HAYDEE BUSTAMANTE Rep #: [id number] : 1945 F 79 From: Jasmyn Herrera MD PCP: Dr. Claudine Durán MD Status: REG ER Study: Wrist min 3 Views Date of Exam: 08/23/24 Exam# [id number] Ordering Dr: Ron Mariscal MD EXAM: XR [...] distal radius with intra-articular extension. Reading Location: [facility] CC: Dr. Ron Mariscal MD; Dr. 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: Signed Normal [facility] No Panel InformationOrdered By: Santos Guillory on 08-21-2024 [facility] Cardiac Rehab [address] [place] [address] CR - Individual Treatment Plan MR#: [id number] Acct: [id number] Name: HAYDEE BUSTAMANTE Rep #:[id number] : 1945 79 From: Santos Rubalcava BS, [...] BMI: 23.3 Core - 30-Day Assessment Hypertension [employer] Hypertension Guidelines Reassessment Notes & Comments:: Pt's BP's are within AHA normal limits on some days Core - Final Assessment Hypertension [employer] Hypertension Guidelines Reassessment Notes & Comments:: Pt (more content not included)... [facility] No Panel InformationOrdered By: Santos Guillory on 07-24-2024 [facility] Cardiac Rehab [address] [place] [address] CR - Individual Treatment Plan MR#: [id number] Acct: [id number] Name: HAYDEE BUSTAMANTE Rep #:[id number] : 1945 79 From: Santos Rubalcava BS, RVT PCP: Dr. Claudine Durán MD DOS: 06/13 Exercise - Initial Assessment Physician Prescribed Exercise Modalities: Treadmill, SciFit Stepper and SciFit Pro-II Ergometer Nutrition - Initial Assessment Weight Mgt (Other Care) Height: 5 ft 3 in Weight:: 133 lb BMI: 23.6 Core - Initial Assessment Hypertension Resting Blood Pressure:: 132/70 [employer] Hypertension Guidelines Psychosocial - Initial [...] modify LDL go (more content not included)... [facility] No Panel InformationOrdered By: Santos Guillory on 06-27-2024 [facility] Cardiac Rehab [address] [facility] [address] CR - Individual Treatment Plan MR#: [id number] Acct: [id number] Name: HAYDEE BUSTAMANTE Rep #:[id number] : 1945 79 From: Santos Rubalcava BS, [...] Session 10,Verbalizes symptom (more content not included)... [facility] 12 Lead EKG performed by [facility] on 06-20-2024 12 Lead EKG performed by [facility] [address] [place] [address] 12 Lead EKG performed by [facility] 06/20/24 1547 MR#: [id number] Acct: [id number] Name: HAYDEE BUSTAMANTE Rep #: [id number] : 1945 79 From: Diaz Puckett MD Attending Dr: Dr. Diaz Puckett MD Status: DE P AMB Ordering Dr: Diaz Puckett MD Date: 06/20/24 Location: [facility] Sex: F C Admitted: BMS/12 Lead EKG performed by [facility] ECG Report Interpretation S inus Rhythm - occasional PAC # PACs = 1.-Combined atrial enlargement. Low voltage -possible pulmonary disease. ABNORMAL Electronically signed on 06/20/2024 at 12:[address] Diaz Puckett [employer] Version 8610 06/20/24 1229 Date Diaz Puckett MD CC: Dr. Claudine Durán MD Date Dictated: 06/20/24 154 Date Transcribed: 06/20/241546 Manufacturing Worker: Signed Normal [facility] Cardiology Visit Reporton Cardiology Visit Report [facility] [address] [place] [address] OFFICE VISIT Date of Service: 06/20/24 MR#: [id number] Acct: [id number] Name: HAYDEE BUSTAMANTE Rep #: [id number] : 1945 Provider: Dr. Diaz dickson MD Age/Sex: 79/F Location[place] [facility] Status: Signed HPI HPI History of Present Illness Details: Patient is a 79-year-old white female comes in today for new patient visit. Patient is routinely cared for in the [facility] system where she had her TAVR April 2024. Patient carries a history of critical aortic stenosis status post TAVR April 2024 at [facility] follow-up echo showed a peak gradient [...] had been in outpatient rehab here at [facility] which she is tolerating without incident. The patient was not aware of her SBE prophylaxis needs given her bioprosthetic valve. She is allergic to penicillin but has not ever taken clindamycin to her knowledge. The patient is scheduled to follow-up with the [facility] in the next few weeks. She is wishing to transfer her care primarily to the [place] [facility] once she is released from the [facility] in their TAVR program. 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 [facility] CR - History AND Physicalon 05-28-2024 CR - History & Physical [facility] Cardiac Rehab [address] [facility] [place] [address] CR - History Physical MR#: [id number] Acct: [id number] Name: HAYDEE BUSTAMANTE Rep #: [id number] : 1945 78 From: aSntos WEI, RVT PCP: Dr. Claudine Durán MD DOS: [...] tab PO DAILY supplement 4 tablet) vitamins A,C,N-umgj-cgeqjp 2,148 2 tab PO BID eye health [...] tabs Instructions: ON HOLD FOR COLONOSCOPY omega 7-kzu-kbm-fish oil 1,200 mg 1 cap PO DAILY [...] Do you have a Healthcare Power of Dopeman?: Yes Living Will: Yes Advance Directives Information [...] 100/54 P (more content not included)... Normal [facility] Cardiac rehabilitation evalu ation reportOrdered By: Santos Guillory on 05-28-2024 Study report [facility] Cardiac Rehab [address] [place] [address] CR - History & Physical MR#: [id number] Acct: [id number] Name: HAYDEE BUSTAMANTE Rep #:[id number] : 1945 78 From: Santos Rubalcava BS, [...] PO DAILY suppl ement 03/19/23 tablet) vitamins A,C,Z-eykr-cemdew 2,148 2 tab PO BID eye heal [...] tabs Instructions: ON HOLD FOR COLONOSCOPY omega 8-fvt-hdu-fish oil 1,200 mg 1 cap PO DAILY [...] Do you have a Healthcare Power of Dopeman?: Yes Living Will: Yes Advance Directives Information [...] for Smoking and (more content not included)... [facility] No Panel InformationOrdered By: Santos Guillory on 05-28-2024 [facility] Cardiac [facility] [address] [place] [address] CR - Individual Treatment Plan MR#: [id number] Acct: [id number] Name: HAYDEE BUSTAMANTE Rep #:[id number] : 1945 78 From: Santos Rubalcava BS, [...] Referral to Physical Therapy: No Referral to [facility] Case Management: No Fall Risk [...] SciFit Stepper, SciFit Pro-II Ergometerand SciFit Lateral [place] Frequency: 3x/week for 12 weeks [36 sessions] [...] rehaband Other additional (more content not included)... [facility] X[facility] Chest PA and Lateralon Radiology Study observation (narrative) [facility] IMPRESSION: See result. Manufacturing Worker: [email or web address] Transcribe Date/Time: Apr 30 2024 11:46A Dictated by : ABIGAIL ODOM MD This examination was interpreted and the report reviewed and electronically signed by: ABIGAIL ODOM MD on Apr 30 2024 11:47AM [facility] DIVISION OF RADIOLOGY * * *Final [...] soft tissues: Unremarkable. DIVISION OF RADIOLOGY Provider, [facility] Nina Napoles - 04/30/2024 * * *Final [...] soft tissues: Unremarkable. IMPRESSION IMPRESSION: See result. Manufacturing Worker: KRYSTAL Transcribe Date/Time: Apr 30 2024 11:46A Dictated by : ABIGAIL ODOM MD This examination was interpreted and the report reviewed and electronically signed by: ABIGAIL ODOM MD on Apr 30 2024 11:47AM EST [facility] XR Chest PA and LateralOrder ed By: Ccf Provider on 04-30-2024 [facility] SPECT Heart for infarct W Tc -99m PYP IVOrdered By: Ccf Provider on 03-25-2024 Interpretation and review of laboratory results Abnormal [facility] Radiology Result ACTIONABLE Abnormal [facility] Comment on above: This report contains an [...] contact your provider for the next steps. [facility] SPECT Heart for infarct W Tc -99m PYP Komal 03-25-2024 * * *Final Report* * * DATE OF EXAM: Mar 25 2024 12:13PM [facility] 0847 - [place] CARDIAC AMYLOID SPECT/CT / PROCEDURE REASON: Nonrheumatic aortic valve stenosis * * * * Physician Interpretation * * * * [place] CTAC Report: [facility] Date of service: 03/25/2024 11:41:51 AM CTAC interpreting physician: Rob Mracelo MD PATIENT: Name: MS. HAYDEE BUSTAMANTE Age: [...] radiotracer. See administered radiotracer and dose below. [facility] Date of service: 03/25/2024 11:41:51 AM Ordering [...] * * Final * * * RP Manufacturing Worker: BELEN Transcribe Date/Time: Mar 25 2024 11:41A Dictated by : ROB MARCELO MD This examination was interpreted and the report reviewed and electronically signed by: ROB MARCELO MD on Mar 25 2024 12:19PM [facility] DIVISION OF RADIOLOGY Provider, [facility] - 03/25/2024 * * *Final Report* * * DATE OF EXAM: Mar 25 2024 12:13PM [facility] 0847 - [place] CARDIAC AMYLOID SPECT/CT / PROCEDURE REASON: Nonrheumatic aortic valve stenosis * * * * Physician Interpretation * * * * NM CTAC Report: [facility] Date of service: 03/25/2024 11:41:51 AM CTAC [...] See administered radiotracer and dose below. [facility] [place] Date of service: 03/25/2024 11:41:51 AM Ordering [...] * * Final * * * RP Manufacturing Worker: BELEN Transcribe Date/Time: Mar 25 2024 11:41A Dictated by : ROB MARCELO MD This examination was interpreted and the report reviewed and electronically signed by: ROB MARCELO MD on Mar 25 2024 12:19PM [facility] Radiology Study observation (narrative) Christiane castañeda [facility] CREATININE, BLOOD (POC)on Creatinine [Mass/Vol] 0.60 mg/dL Abnormal 0.7 - 1.4 mg/dL [facility] eGFR (POCT) mL/min/1.7 3 m2 [facility] Interpretation and review of laboratory results Abnormal [facility] Location:Radiology [facility], [address] [place] [address], [address] [place] [address] POINT OF CARE [facility] CTA Abdominal vessels and Pe lvis vessels [...] AORTIC DIMENSIONS: AORTIC ROOT: 3.5 cm measured fwfjx-vd-lnpux STJ: 2.5 cm mid ASCENDING THORACIC AORTA: [...] lumbar spine. Anterolisthesis of L4 over L5 Coupon Clerk (topogram) images: No additional findings. DIVISION OF RADIOLOGY Provider, [facility] - 03/21/2024 * * *Final Report* [...] AORTIC DIMENSIONS: AORTIC ROOT: 3.5 cm measured dmpks-df-dtmxk STJ: 2.5 cm mid ASCENDING THORACIC AORTA: [...] lumbar spine. Anterolisthesis of L4 over L5 Coupon Clerk (topogram) images: (more content not included)... [facility] Radiology Study observation (narrative) [facility] CTA Chest vessels W contrast Komal 03-21-2024 [...] AORTIC DIMENSIONS: AORTIC ROOT: 3.5 cm measured ajywj-mo-vttqf STJ: 2.5 cm mid ASCENDING THORACIC AORTA: [...] lumbar spine. Anterolisthesis of L4 over L5 Coupon Clerk (topogram) images: No additional findings. DIVISION OF RADIOLOGY Provider, [facility] - 03/21/2024 * * *Final Report* [...] AORTIC DIMENSIONS: AORTIC ROOT: 3.5 cm measured jmjax-dz-iibqo STJ: 2.5 cm mid ASCENDING THORACIC AORTA: [...] lumbar spine. Anterolisthesis of L4 over L5 Coupon Clerk (topogram) im (more content not included)... [facility] Radiology Study observation (narrative) [facility] No Panel Informationon 03-21 IMPRESSION: Aortic Annulus and valve anatomy as described above Normal thoracic and abdomiinal aorta.Atherosclerotic changes as in the body of the report.Minimum luminal diameter throughout: 7 mm Manufacturing Worker: PSCB Transcribe Date/Time: Mar 21 2024 11:22A Dictated by : CALIXTO BLACKWOOD MD This examination was interpreted and the report reviewed and electronically signed by: CALIXTO BLACKWOOD MD on Mar 21 2024 12:53PM [facility] DIVISION OF RADIOLOGY No Panel InformationOrdered By: Ccf Provider on 03-21-2024 [facility] XR Chest PA and Lateralon IMPRESSION: See result Manufacturing Worker: [email or web address] Transcribe Date/Time: Mar 21 2024 12:02P Dictated by : JACKELINE SCHULER MD This examination was interpreted and the report reviewed and electronically signed by: JACKELINE SCHULER MD on Mar 21 2024 12:04PM [facility] DIVISION OF RADIOLOGY * * *Final [...] Decreased bone density DIVISION OF RADIOLOGY Provider, [facility] - 03/21/2024 * * *Final Report* [...] Decreased bone density IMPRESSION IMPRESSION: See result Manufacturing Worker: [email or web address] Transcribe Date/Time: Mar 21 2024 12:02P Dictated by : JACKELINE SCHULER MD This examination was interpreted and the report reviewed and electronically signed by: JACKELINE SCHULER MD on Mar 21 2024 12:04PM EST [facility] Radiology Study observation (narrative) Christiane castañeda [facility] XR Chest PA and LateralOrder ed By: Ccf Provider on 03-21-2024 [facility] Davy 01-04-2024 CNPDeshawn Telephone (AKPRAD) HAYDEE BUSTAMANTE ([id number]) 1945 F [facility] Date Time Provider Department 01/04/24 GENO [...] (FLONASE) 50 mcg/actuation nasal spray Use 1 [place] in each nostril once daily. - pantoprazole DR (PROTONIX) 40 mg tablet Take 1 tablet by mouth once daily. - vit A,C,W-Rjcq-Vszpog (OCUVITE PRESERVISION) 2,148 mcg-113 mg-45 mg-17.4mg tab [...] by this patient by: PATIENT Muna Steven (Accreditation Coordinator) [facility] for [facility]cf medications. Problem List As Of Date 12/20 (more content not included)... Normal [facility] HISTOPLASMA AG URINEOrdered By: Cabrera Duggan on 12-21-2023 H. capsulatum Ag (U) [Mass/Vol] ng/mL NINF - 0.2 ng/mL [facility] H. capsulatum Ag IA Ql (U) Negative Negative [facility] Comment on above: Histoplasma galactom adilene antigen, urine test is used as an aid in diagnosing histoplasmosis. A negative result cannot rule out infection. Low positive results may at times be due to cross-reactivity with Blastomyces, Talaromyces marneffei, Paracoccidioides, and some Wendy species. Clinical radiological, and epidemiological correlation is required. Interpretation and review of laboratory results Normal [facility] ITRACONAZOLE BLOODOrdered By : Elvira Cronin on 12-21-2023 Hydroxyitraconazole 1.1 ug/mL [facility] Comment on above: Ranges are based [...] of Aspergillosis and Candidiasis and consultation from [facility]'s Department of Infectious Disease. Reference ranges and high/low indicator flags are provided as general guidelines only. The treating physician must determine appropriate target levels/dosing based on the specific clinical situation. This test was developed, and its performance characteristics determined by the [facility] Department of Pathology and Laboratory Medicine. It has not been cleared or approved by the FDA. The [facility] Department of Pathology and Laboratory Medicine is regulated under CLIA as qualified to perform high-complexity testing. This test is used for clinical purposes. It should not be regarded as investigational or for research. Itraconazole 0.8 ug/mL 0.6 - 2.9 ug/mL [facility] Hepatic function 2000 panelo n 12-20-2023 Albumin [Mass/Vol] 3.7 g/dL Low 3.9 - 4.9 g/dL [facility] ALP [Catalytic activity/Vol] 95 U/L 34 - 123 U/L [facility] ALT [Catalytic activity/Vol] 19 U/L 7 - 38 U/L [facility] AST [Catalytic activity/Vol] 20 U/L 13 - 35 U/L [facility] Bilirubin [Mass/Vol] 0.6 mg/dL 0.2 - 1 .3 mg/dL [facility] Bilirubin.conjugated [Mass/Vol] 0.2 mg/dL High NINF - 0.2 mg/dL [facility] Interpretation and review of laboratory results Abnormal [facility] Protein [Mass/Vol] 7.0 g/dL 6.3 - 8.0 g/dL [facility] CBC W Auto Differential pane l (Bld)on 10-11-2023 Basophils (Bld) [#/Vol] 0.05 10*3/uL [facility] Basophils/100 WBC (Bld) 0.5 % C [facility] Differential cell count method Nom (Bld) Auto [facility] Eosinophils (Bld) [#/Vol] 0.12 10*3/uL [facility] Eosinophils/100 WBC (Bld) 1.2 % [facility] Erythrocyte distribution width (RBC) [Ratio] 16.8 % High 11.5 - 15.0 % [facility] Hematocrit (Bld) [Volume fraction] 32.4 % Low 36.0 - 46.0 % [facility] Hemoglobin (Bld) [Mass/Vol] 10.1 g/dL Low 11.5 - 15.5 g/dL [facility] Immature granulocytes (Bld) [#/Vol] 0.05 10*3/uL [facility] Immature granulocytes/100 WBC (Bld) 0.5 % [facility] Interpretation and review of laboratory results Abnormal [facility] Lymphocytes (Bld) [#/Vol] 1.31 10*3/uL [facility] Lymphocytes/100 WBC (Bld) 13.3 % [facility] MCH (RBC) [Entitic mass] 26.9 pg 26.0 - 34.0 pg [facility] MCHC (RBC) [Mass/Vol] 31.2 g/dL 30.5 - 36.0 g/dL [facility] MCV (RBC) [Entitic vol] 86.4 fL 80.0 - 100.0 fL [facility] Monocytes (Bld) [#/Vol] 1.00 10*3/uL High [facility] Monocytes/100 WBC (Bld) 10.2 % C [facility] Neutrophils (Bld) [#/Vol] 7.32 10*3/uL [facility] Neutrophils/100 WBC (Bld) 74.3 % [facility] Nucleated RBC (Bld) [#/Vol] [facility] Nucleated RBC/100 WBC (Bld) [Ratio] 0.0 % /100 WBC [facility] Platelet mean volume (Bld) [Entitic vol] 11.6 fL 9.0 - 12.7 fL [facility] Platelets (Bld) [#/Vol] 349 10*3/uL [facility] RBC (Bld) [#/Vol] 3.75 10*6/uL Low 3.90 - 5.20 m/uL [facility] WBC (Bld) [#/Vol] 9.85 10*3/uL [facility] Comprehensive metabolic 2000 panelon 10-11-2023 Albumin [Mass/Vol] 3.9 g/dL 3.9 - 4.9 g/dL [facility] ALP [Catalytic activity/Vol] 111 U/L 34 - 123 U/L [facility] ALT [Catalytic activity/Vol] 22 U/L 7 - 38 U/L [facility] Anion gap [Moles/Vol] 11 mmol/L 8 - 15 mmol/L [facility] AST [Catalytic activity/Vol] 23 U/L 13 - 35 U/L [facility] Bilirubin [Mass/Vol] 0.3 mg/dL 0.2 - 1 .3 mg/dL [facility] Calcium [Mass/Vol] 9.4 mg/dL 8.5 - 10. 2 mg/dL [facility] Chloride [Moles/Vol] 99 mmol/L 98 - 10 7 mmol/L [facility] CO2 [Moles/Vol] 24 mmol/L 22 - 30 mmol/L [facility] Creatinine [Mass/Vol] 0.59 mg/dL 0.58 - 0.96 mg/dL [facility] GFR/1.73 sq M.predicted among non-blacks MDRD (S/P/Bld) [Vol rate/Area] 94 mL/min/{1.73_m2} - PINF [facility] Comment on above: Estimated Glomerular Filtration Rate [...] [Mass/Vol] 76 mg/dL 74 - 99 mg/dL [facility] Comment on above: The [place] Diabete s Association (ADA) provides guidance for [...] Standards of Medical Care in Diabetes 2016, [place] Diabetes Association. Diabetes Care. 2016.39(Suppl 1). Interpretation and review of laboratory results Abnormal [facility] Potassium [Moles/Vol] 5.1 mmol/L 3.7 - 5.1 mmol/L [facility] Protein [Mass/Vol] 7.6 g/dL 6.3 - 8.0 g/dL [facility] Sodium [Moles/Vol] 134 mmol/L Low 136 - 144 mmol/L [facility] Urea nitrogen [Mass/Vol] 26 mg/dL High 7 - 21 mg/dL [facility] HISTOPLASMA AB CFon 09-02-19 24 H. capsulatum mycelial phase Ab CF (S) [Titer] <1:8 [facility] Comment on above: INTERPRETIVE INFORMA TION: Histoplasma Mycelia Antibodies by CF A titer of 1:8 or greater is generally considered presumptive evidence of histoplasmosis. A titer of 1:32 or greater or rising titers indicate strong presumptive evidence of histoplasmosis. Cross reactions, usually at lower titers, may occur with other fungal diseases. H. capsulatum yeast phase Ab CF (S) [Titer] <1:8 [facility] Comment on above: INTERPRETIVE INFORMA TION: Histoplasma Yeast Antibodies by CF A titer of 1:8 or greater is generally considered presumptive evidence of histoplasmosis. A titer of 1:32 or greater or rising titers indicate strong presumptive evidence of histoplasmosis. Cross reactions, usually at lower titers, may occur with other fungal diseases. Performed By: [facility] [address] [place] [id number] House Pain[employer] Instructor: Ernie Issa MD, PhD CLIA Number: [id number] [facility] HISTOPLASMA AG URINEOrdered By: Maricarmen Call on 08-31-2023 H. capsulatum Ag (U) [Mass/Vol] 0.4 ng/mL High NINF - 0.2 ng/mL [facility] H. capsulatum Ag IA Ql (U) Positive Abnormal Negative [facility] Comment on above: Histoplasma galactom adilene antigen, urine test is used as an aid in diagnosing histoplasmosis. A negative result cannot rule out infection. Low positive results may at times be due to cross-reactivity with Blastomyces, Talaromyces marneffei, Paracoccidioides, and some Wendy species. Clinical radiological, and epidemiological correlation is required. Interpretation and review of laboratory results Abnormal [facility] ITRACONAZOLE BLOODOrdered By : Elvira Cronin on 08-31-2023 Hydroxyitraconazole 2.4 ug/mL [facility] Comment on above: Ranges are based [...] of Aspergillosis and Candidiasis and consultation from [facility]'s Department of Infectious Disease. Reference ranges and high/low indicator flags are provided as general guidelines only. The treating physician must determine appropriate target levels/dosing based on the specific clinical situation. This test was developed and its performance characteristics determined by [facility]'s [place] [facility]). It has not been cleared or approved by the FDA. [facility] is regulated under CLIA as qualified to perform high-complexity testing. This test is used for clinical purposes. It should not be regarded as investigational or for research. Itraconazole 1.3 ug/mL 0.6 - 2.9 ug/mL [facility] CNOVon 08-27-2023 CNOV Office Visit (CARMED ) HAYDEE BUSTAMANTE ([id number]) 1945 F T Date Time Provider Department 08/27/23 8:20 AM WILLIAM MESSINA During your visit today, we recorded the following information about you: Pulse Blood pressure Weight Height 81/minute 116/68 58.1 kg 1.6 m William Messina, 08/27/2023 2:47 PM Signed [facility] SECTION OF [facility]AL CARDIOLOGY [facility] OUTPATIENT VISIT DATE August 27, 2023 PRIMARY CARE PHYSICIAN: Claudine Durán [address] [place] [address] HISTORY OF PRESENT ILLNESS: Ms. Bustamante is [...] [facility] 03/07/2015 Dr. Hurley ([facility]) (more content not included)... [facility] 08-27-2023 [facility] Telephone (ANGIE) ROBBYHAYDEE L ([id number]) 1945 F T Date Time Provider Department [...] (FLONASE) 50 mcg/actuation nasal spray Use 1 [place] in each nostril once daily. - pantoprazole DR (PROTONIX) 40 mg tablet Take 1 tablet by mouth once daily. 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 Normal [facility] CBC W Auto Differential pane l (Bld)on 08-22-2023 Basophils (Bld) [#/Vol] 0.04 10*3/uL [facility] Basophils/100 WBC (Bld) 0.5 % C [facility] Differential cell count method Nom (Bld) Auto [facility] Eosinophils (Bld) [#/Vol] 0.08 10*3/uL [facility] Eosinophils/100 WBC (Bld) 1.0 % [facility] Erythrocyte distribution width (RBC) [Ratio] 17.4 % High 11.5 - 15.0 % [facility] Hematocrit (Bld) [Volume fraction] 28.5 % Low 36.0 - 46.0 % [facility] Hemoglobin (Bld) [Mass/Vol] 9.1 g/dL Low 11.5 - 15.5 g/dL [facility] Immature granulocytes (Bld) [#/Vol] 0.04 10*3/uL [facility] Immature granulocytes/100 WBC (Bld) 0.5 % [facility] Interpretation and review of laboratory results Abnormal [facility] Lymphocytes (Bld) [#/Vol] 0.93 10*3/uL Low [facility] Lymphocytes/100 WBC (Bld) 11.6 % [facility] MCH (RBC) [Entitic mass] 29.0 pg 26.0 - 34.0 pg [facility] MCHC (RBC) [Mass/Vol] 31.9 g/dL 30.5 - 36.0 g/dL [facility] MCV (RBC) [Entitic vol] 90.8 fL 80.0 - 100.0 fL [facility] Monocytes (Bld) [#/Vol] 0.72 10*3/uL [facility] Monocytes/100 WBC (Bld) 9.0 % C [facility] Neutrophils (Bld) [#/Vol] 6.19 10*3/uL [facility] Neutrophils/100 WBC (Bld) 77.4 % [facility] Nucleated RBC (Bld) [#/Vol] [facility] Nucleated RBC/100 WBC (Bld) [Ratio] 0.0 % /100 WBC [facility] Platelet mean volume (Bld) [Entitic vol] 10.8 fL 9.0 - 12.7 fL [facility] Platelets (Bld) [#/Vol] 293 10*3/uL [facility] RBC (Bld) [#/Vol] 3.14 10*6/uL Low 3.90 - 5.20 m/uL [facility] WBC (Bld) [#/Vol] 8.00 10*3/uL [facility] Comprehensive metabolic 2000 panelOrdered By: Adri Cabrera on 08-22-2023 Albumin [Mass/Vol] 3.2 g/dL Low 3.9 - 4.9 g/dL [facility] ALP [Catalytic activity/Vol] 97 U/L 34 - 123 U/L [facility] ALT [Catalytic activity/Vol] 20 U/L 7 - 38 U/L [facility] Anion gap [Moles/Vol] 10 mmol/L 8 - 15 mmol/L [facility] AST [Catalytic activity/Vol] 25 U/L 13 - 35 U/L [facility] Bilirubin [Mass/Vol] 0.4 mg/dL 0.2 - 1 .3 mg/dL [facility] Calcium [Mass/Vol] 8.5 mg/dL 8.5 - 10. 2 mg/dL [facility] Chloride [Moles/Vol] 103 mmol/L 98 - 10 7 mmol/L [facility] CO2 [Moles/Vol] 26 mmol/L 22 - 30 mmol/L [facility] Creatinine [Mass/Vol] 0.55 mg/dL Low 0.58 - 0.96 mg/dL [facility] GFR/1.73 sq M.predicted among non-blacks MDRD (S/P/Bld) [Vol rate/Area] 95 mL/min/{1.73_m2} - PINF [facility] Comment on above: Estimated Glomerular Filtration Rate [...] [Mass/Vol] 82 mg/dL 74 - 99 mg/dL [facility] Comment on above: The [place] Diabete s Association (ADA) provides guidance for [...] Standards of Medical Care in Diabetes 2016, [place] Diabetes Association. Diabetes Care. 2016.39(Suppl 1). Interpretation and review of laboratory results Abnormal [facility] Potassium [Moles/Vol] 3.3 mmol/L Low 3.7 - 5.1 mmol/L [facility] Protein [Mass/Vol] 5.8 g/dL Low 6.3 - 8.0 g/dL [facility] Sodium [Moles/Vol] 139 mmol/L 136 - 144 mmol/L [facility] Urea nitrogen [Mass/Vol] 16 mg/dL 7 - 21 mg/dL [facility] INR (POC)on 08-22-2023 INR Coag (PPP) [Relative time] 1.1 {INR} 0.8 - 1.2 [facility] Internal Quality Check Acceptable Cl [facility] Location:[address], [place], [place], [id number] [place] [address] POINT OF CARE [facility] No Panel InformationOrdered By: Zaynab Pina on 05-31-2023 29.8 SECONDS 11.7-14.9 [facility] 2.9 [facility] Absolute lymphocyte countOrd ered By: Zaynab Pina on 05-29-2023 Lymphocytes Auto (Unsp spec) [#/Vol] 1.06 10*3/uL 0.83-4.51 [facility] Automated lymphocyte count a s percentage of total leukocytesOrdered By: Zaynab Pina on 05-29-2023 Lymphocytes/100 WBC Auto (Unsp spec) 17.1 % 19-41 [facility] Basophil percentageOrdered B y: Zaynab Pina on 05-29-2023 Basophil percentage 9.8 g/dL 12.0-15.0 [facility] Basophil percentage 80 mg/dL 74-106 [facility] Basophil percentage 139 mmol/L 136-145 [facility] Basophil percentage 3.4 mmol/L 3.5-5.1 [facility] Basophil percentage 106 mmol/L 98-107 [facility] Basophils (Bld) [#/Vol] 6.2 10*3/uL 4.4-11.0 [facility] Basophils (Bld) [#/Vol] 4.1 10*3/uL 2.0-7.7 [facility] Basophils/100 WBC (Bld) 66.4 % 47-70 [facility] Basophils/100 WBC (Bld) 12.3 % 0-10 [facility] Basophils/100 WBC (Bld) 3.2 % 0-5 [facility] Basophils/100 WBC (Bld) 0.5 % 0-1 [facility] Determination of erythrocyte mean corpuscular volume (MCV)Ordered By: Zaynab Pina on 05-29-2023 MCV (RBC) [Entitic vol] 81.1 fL 81-99 [facility] Erythrocyte distribution wid th ratioOrdered By: Claudiomclouthjoesph Cherrymarily on 05-29-2023 Erythrocyte distribution width (RBC) [Ratio] 17.6 % 11.6-14.6 [facility] Erythrocyte distribution wid th standard deviationOrdered By: Claudiomclouthjoesph Pina on 05-29-2023 Erythrocyte distribution width (RBC) [Entitic vol] 52.1 fL 35.1-43.9 [facility] Hematocrit Auto (Bld) [Volum e fraction]Ordered By: Zaynab Pina on 05-29-2023 Hematocrit (Bld) [Volume fraction] 30.8 % 37-47 [facility] Immature granulocytes/100 WB C Auto (Bld)Ordered By: Zaynab Pina on 05-29-2023 Immature granulocytes/100 WBC (Bld) 0.500 % 0.0-0.9 [facility] No Panel InformationOrdered By: Zaynab Pina on 05-29-2023 25.8 pg 27.0-32.0 [facility] 31.8 g/dL 32-36 [facility] 194 K/mm3 150-450 [facility] 11.0 fl 6.2-12.0 [facility] 0 % 0-5 [facility] 116 mL/min >60 [facility] 141 mL/min >60 [facility] 29.6 RATIO 10-20 [facility] 28.0 mmol/L 21.0-32.0 [facility] RBC Auto (Bld) [#/Vol]Ordere d By: Zaynab Pina on 05-29-2023 RBC (Bld) [#/Vol] 3.80 10*6/uL 4.2-5.4 [facility] Serum or plasma calcium monica urement (mass/volume)Ordered By: Zaynab Pina on 05-29-2023 Calcium [Mass/Vol] 8.4 mg/dL 8.5-10.1 [facility] Serum or plasma creatinine m easurement (mass/volume)Ordered By: Zaynab Pina on 05-29-2023 Creatinine [Mass/Vol] 0.54 mg/dL 0.55-1.02 [facility] Serum or plasma urea nitroge n measurement (mass/volume)Ordered By: Zaynab Pina on 05-29-2023 Urea nitrogen [Mass/Vol] 16 mg/dL 7-18 [facility] Thin prep Papanicolaou smear with manual screeningOrdered By: Zaynab Pina on 05-29-2023 Thin prep Papanicolaou smear with manual screening 5 5-15 [facility] No Panel InformationOrdered By: Zaynab Pina on 05-28-2023 30.6 SECONDS 11.7-14.9 [facility] 3.0 [facility] Capillary blood internationa l normalized ratio (INR)Ordered By: Zaynab Pina on 05-24-2023 INR Coag (BldC) [Relative time] 1.9 [facility] Whole blood prothrombin time Ordered By: Zaynab Pina on 05-24-2023 PT Coag (Bld) [Time] 20.2 s 11.7-14.9 [facility] Capillary blood internationa l normalized ratio (INR)Ordered By: Zaynab Pina on 05-21-2023 INR Coag (BldC) [Relative time] 2.8 [facility] Whole blood prothrombin time Ordered By: Zaynab Pina on 05-21-2023 PT Coag (Bld) [Time] 28.8 s 11.7-14.9 [facility] Capillary blood internationa l normalized ratio (INR)Ordered By: Zaynab Pina on 05-17-2023 INR Coag (BldC) [Relative time] 3.0 [facility] Whole blood prothrombin time Ordered By: Zaynab Pina on 05-17-2023 PT Coag (Bld) [Time] 30.2 s 11.7-14.9 [facility] Absolute lymphocyte countOrd ered By: Zaynab Pina on 05-15-2023 Lymphocytes Auto (Unsp spec) [#/Vol] 1.62 10*3/uL 0.83-4.51 [facility] Automated lymphocyte count a s percentage of total leukocytesOrdered By: Zaynab Pina on 05-15-2023 Lymphocytes/100 WBC Auto (Unsp spec) 18.8 % 19-41 [facility] Basophil percentageOrdered B y: Zaynab Pina on 05-15-2023 Basophil percentage 10.0 g/dL 12.0-15.0 [facility] Basophil percentage 71 mg/dL 74-106 [facility] Basophil percentage 137 mmol/L 136-145 [facility] Basophil percentage 4.1 mmol/L 3.5-5.1 [facility] Basophil percentage 103 mmol/L 98-107 [facility] Basophils (Bld) [#/Vol] 8.6 10*3/uL 4.4-11.0 [facility] Basophils (Bld) [#/Vol] 5.6 10*3/uL 2.0-7.7 [facility] Basophils/100 WBC (Bld) 64.8 % 47-70 [facility] Basophils/100 WBC (Bld) 11.8 % 0-10 [facility] Basophils/100 WBC (Bld) 3.3 % 0-5 [facility] Basophils/100 WBC (Bld) 0.7 % 0-1 [facility] Determination of erythrocyte mean corpuscular volume (MCV)Ordered By: Zaynab Pina on 05-15-2023 MCV (RBC) [Entitic vol] 82.7 fL 81-99 [facility] Erythrocyte distribution wid th ratioOrdered By: Zaynab Pina on 05-15-2023 Erythrocyte distribution width (RBC) [Ratio] 18.1 % 11.6-14.6 [facility] Erythrocyte distribution wid th standard deviationOrdered By: Zaynab Pina on 05-15-2023 Erythrocyte distribution width (RBC) [Entitic vol] 54.5 fL 35.1-43.9 [facility] Hematocrit Auto (Bld) [Volum e fraction]Ordered By: Zaynab Pina on 05-15-2023 Hematocrit (Bld) [Volume fraction] 32.0 % 37-47 [facility] Immature granulocytes/100 WB C Auto (Bld)Ordered By: Zaynab Pina on 05-15-2023 Immature granulocytes/100 WBC (Bld) 0.600 % 0.0-0.9 [facility] No Panel InformationOrdered By: Zaynab Pina on 05-15-2023 25.8 pg 27.0-32.0 [facility] 31.3 g/dL 32-36 [facility] 322 K/mm3 150-450 [facility] 10.2 fl 6.2-12.0 [facility] 0 % 0-5 [facility] 96 mL/min >60 [facility] 117 mL/min >60 [facility] 20.4 RATIO 10-20 [facility] 27.0 mmol/L 21.0-32.0 [facility] RBC Auto (Bld) [#/Vol]Ordere d By: Zaynab Pina on 05-15-2023 RBC (Bld) [#/Vol] 3.87 10*6/uL 4.2-5.4 [facility] Serum or plasma calcium monica urement (mass/volume)Ordered By: Zaynab Pina on 05-15-2023 Calcium [Mass/Vol] 9.0 mg/dL 8.5-10.1 [facility] Serum or plasma creatinine m easurement (mass/volume)Ordered By: Zaynab Pina on 05-15-2023 Creatinine [Mass/Vol] 0.64 mg/dL 0.55-1.02 [facility] Serum or plasma urea nitroge n measurement (mass/volume)Ordered By: Zaynab Pina on 05-15-2023 Urea nitrogen [Mass/Vol] 13 mg/dL 7-18 [facility] Thin prep Papanicolaou smear with manual screeningOrdered By: Zaynab Pina on 05-15-2023 Thin prep Papanicolaou smear with manual screening 7 5-15 [facility] Capillary blood internationa l normalized ratio (INR)Ordered By: Zaynab Pina on 05-14-2023 INR Coag (BldC) [Relative time] 3.0 [facility] Comment on above: Critical Value > 4.0 Whole blood prothrombin time Ordered By: Zaynab Pina on 05-14-2023 PT Coag (Bld) [Time] 30.4 s 11.7-14.9 [facility] Capillary blood internationa l normalized ratio (INR)Ordered By: Zaynab Pina on 05-10-2023 INR Coag (BldC) [Relative time] 2.8 [facility] Comment on above: Critical Value > 4.0 Whole blood prothrombin time Ordered By: Zaynab Pina on 05-10-2023 PT Coag (Bld) [Time] 28.1 s 11.7-14.9 [facility] Capillary blood internationa l normalized ratio (INR)Ordered By: Zaynab Pina on 05-07-2023 INR Coag (BldC) [Relative time] 2.2 [facility] Comment on above: Critical Value > 4.0 Whole blood prothrombin time Ordered By: Zaynab Pina on 05-07-2023 PT Coag (Bld) [Time] 24.4 s 11.7-14.9 [facility] Laboratory - CoagulationOrde red By: Zaynab Pina on 05-03-2023 INR Coag (Bld) [Relative time] 2.1 {INR} [facility] PT Coag (PPP) [Time] 23.2 s 11.7-14.9 [facility] No Panel InformationOrdered By: Zaynab Pina on 05-03-2023 23.2 SECONDS 11.7-14.9 [facility] 2.1 [facility] Absolute lymphocyte countOrd ered By: Zaynab Pina on 05-01-2023 Lymphocytes Auto (Unsp spec) [#/Vol] 1.74 10*3/uL 0.83-4.51 [facility] Automated lymphocyte count a s percentage of total leukocytesOrdered By: Zaynab Pina on 05-01-2023 Lymphocytes/100 WBC Auto (Unsp spec) 23.1 % 19-41 [facility] Basophil percentageOrdered B y: Zaynab Pina on 05-01-2023 Basophil percentage 10.7 g/dL 12.0-15.0 [facility] Basophil percentage 86 mg/dL 74-106 [facility] Basophil percentage 5.8 g/dL 6.4-8.2 [facility] Basophil percentage 0.60 mg/dL 0.20-1.00 [facility] Basophil percentage 137 mmol/L 136-145 [facility] Basophil percentage 3.7 mmol/L 3.5-5.1 [facility] Basophil percentage 105 mmol/L 98-107 [facility] Basophils (Bld) [#/Vol] 7.5 10*3/uL 4.4-11.0 [facility] Basophils (Bld) [#/Vol] 4.7 10*3/uL 2.0-7.7 [facility] Basophils/100 WBC (Bld) 0.7 % 0-1 [facility] Basophils/100 WBC (Bld) 62.4 % 47-70 [facility] Basophils/100 WBC (Bld) 12.0 % 0-10 [facility] Basophils/100 WBC (Bld) 1.3 % 0-5 [facility] Bilirubin [Mass/Vol] 0.60 mg/dL 0.20-1.00 [facility] Comment on above: For patients on eltr ombopag therapy, use of [place] TBIL is not recommended. Chloride [Moles/Vol] 105 mmol/L 98-[address] [facility] Eosinophils/100 WBC (Bld) 1.3 % 0-5 [facility] Glucose [Mass/Vol] 86 mg/dL 74-106 [facility] Hemoglobin (Bld) [Mass/Vol] 10.7 g/dL 12.0-15.0 [facility] Monocytes/100 WBC (Bld) 12.0 % 0-10 [facility] Neutrophils (Bld) [#/Vol] 4.7 10*3/uL 2.0-7.7 [facility] Neutrophils/100 WBC (Bld) 62.4 % 47-70 [facility] Potassium [Moles/Vol] 3.7 mmol/L 3.5-5.1 [facility] Protein [Mass/Vol] 5.8 g/dL 6.4-8.2 [facility] Sodium [Moles/Vol] 137 mmol/L 136-145 [facility] WBC (Bld) [#/Vol] 7.5 10*3/uL 4.4-11.0 [facility] Determination of erythrocyte mean corpuscular volume (MCV)Ordered By: Zaynab Pina on 05-01-2023 MCV (RBC) [Entitic vol] 84.2 fL 81-99 [facility] Erythrocyte distribution wid th ratioOrdered By: Claudiomclouthjoesph Pina on 05-01-2023 Erythrocyte distribution width (RBC) [Ratio] 19.4 % 11.6-14.6 [facility] Erythrocyte distribution wid th standard deviationOrdered By: Zaynab Pina on 05-01-2023 Erythrocyte distribution width (RBC) [Entitic vol] 60.2 fL 35.1-43.9 [facility] Hematocrit Auto (Bld) [Volum e fraction]Ordered By: Zaynab Pina on 05-01-2023 Hematocrit (Bld) [Volume fraction] 33.1 % 37-47 [facility] Immature granulocytes/100 WB C Auto (Bld)Ordered By: Zaynab Pina on 05-01-2023 Immature granulocytes/100 WBC (Bld) 0.500 % 0.0-0.9 [facility] Comment on above: IG% - Immature Granu locytes (promyelocytes, myelocytes and metamyelocytes) > 1% indicates that a LEFT SHIFT is Present. Laboratory - Chemistry and C hemistry - challengeOrdered By: Zaynab Pina on 05-01-2023 Albumin/Globulin [Mass ratio] 0.9 {ratio} 0.9-2.4 [facility] ALP [Catalytic activity/Vol] 93 U/L 45-117 [facility] ALT [Catalytic activity/Vol] 35 U/L 13-56 [facility] CO2 [Moles/Vol] 27.0 mmol/L 21.0-32.0 [facility] Globulin (S) [Mass/Vol] 3.1 g/dL 2.2-4.2 [facility] Urea nitrogen/Creatinine [Mass ratio] 56.7 mg/mg 10-20 [facility] Laboratory - Hematology and Cell countsOrdered By: Zaynab Pina on 05-01-2023 MCH (RBC) [Entitic mass] 27.2 pg 27.0-32.0 [facility] MCHC (RBC) [Mass/Vol] 32.3 g/dL 32-36 [facility] Nucleated RBC/100 WBC (Bld) [Ratio] 0 % 0-5 [facility] Platelet mean volume (Bld) [Entitic vol] 10.2 fL 6.2-12.0 [facility] Platelets (Bld) [#/Vol] 223 10*3/uL 150-450 [facility] No Panel InformationOrdered By: Zaynab Pina on 05-01-2023 Estimated GFR (MDRD) Amer 163 mL/min >60 [facility] Comment on above: GFR Calc Estimated GFR (MDRD) Non-Af Amer 135 mL/min >60 [facility] Comment on above: Non- GFR Calc Vitamin D 25-Hydroxy 42.6 ng/mL [facility] Comment on above: Vitamin D 25(OH) Sta tus Range Deficiency <20 ng/mL (50nmol/L) Insufficiency 20 - 30 ng/mL (50 - 75 nmol/L) Sufficiency 30 - 100 ng/mL (75 - 250 nmol/L) Toxicity >100 ng/mL (>250 nmol/L) 27.2 pg 27.0-32.0 [facility] 32.3 g/dL 32-36 [facility] 223 K/mm3 150-450 [facility] 10.2 fl 6.2-12.0 [facility] 0 % 0-5 [facility] 135 mL/min >60 [facility] 163 mL/min >60 [facility] 56.7 RATIO 10-20 [facility] 3.1 g/dL 2.2-4.2 [facility] 0.9 RATIO 0.9-2.4 [facility] 93 U/L 45-117 [facility] 35 U/L 13-56 [facility] 27.0 mmol/L 21.0-32.0 [facility] 42.6 ng/mL [facility] RBC Auto (Bld) [#/Vol]Ordere d By: Zaynab Pina on 05-01-2023 RBC (Bld) [#/Vol] 3.93 10*6/uL 4.2-5.4 [facility] Serum or plasma calcium monica urement (mass/volume)Ordered By: Zaynab Pina on 05-01-2023 Calcium [Mass/Vol] 8.6 mg/dL 8.5-10.1 [facility] Serum or plasma creatinine m easurement (mass/volume)Ordered By: Zaynab Pina on 05-01-2023 Creatinine [Mass/Vol] 0.48 mg/dL 0.55-1.02 [facility] Comment on above: The validity of the calculated GFR & GFRAA in patients over 70 years has not been determined. Clinical correlation is essential. Serum or plasma urea nitroge n measurement (mass/volume)Ordered By: Zaynab Pina on 05-01-2023 Urea nitrogen [Mass/Vol] 27 mg/dL 7-18 [facility] Thin prep Papanicolaou smear with manual screeningOrdered By: Zaynab Pina on 05-01-2023 Thin prep Papanicolaou smear with manual screening 2.7 g/dL 3.2-5.0 [facility] Thin prep Papanicolaou smear with manual screening 23 U/L 15-37 [facility] Thin prep Papanicolaou smear with manual screening 5 5-15 [facility] Laboratory - CoagulationOrde red By: Edinson Irvin on 04-30-2023 INR Coag (Bld) [Relative time] 2.2 {INR} [facility] PT Coag (PPP) [Time] 24.5 s 11.7-14.9 [facility] No Panel InformationOrdered By: Edinson Irvin on 04-30-2023 24.5 SECONDS 11.7-14.9 [facility] 2.2 [facility] Basophil percentageOrdered B y: Edinson Irvin on 04-27-2023 Basophil percentage 82 mg/dL 74-106 [facility] Basophil percentage 136 mmol/L 136-145 [facility] Basophil percentage 3.6 mmol/L 3.5-5.1 [facility] Basophil percentage 101 mmol/L 98-107 [facility] Chloride [Moles/Vol] 101 mmol/L 98-107 [facility] Glucose [Mass/Vol] 82 mg/dL 74-106 [facility] Potassium [Moles/Vol] 3.6 mmol/L 3.5-5.1 [facility] Sodium [Moles/Vol] 136 mmol/L 136-145 [facility] Laboratory - Chemistry and C hemistry - challengeOrdered By: Edinson Irvin on 04-27-2023 CO2 [Moles/Vol] 28.0 mmol/L 21.0-32.0 [facility] Urea nitrogen/Creatinine [Mass ratio] 54.9 mg/mg 10-20 [facility] No Panel InformationOrdered By: Edinson Irvin on 04-27-2023 Estimated Creatinine Clearance Calc 50.26 ml/min [facility] Estimated GFR (MDRD) Amer 151 mL/min >60 [facility] Comment on above: GFR Calc Estimated GFR (MDRD) Non-Af Amer 125 mL/min >60 [facility] Comment on above: Non- GFR Calc 125 mL/min >60 [facility] 151 mL/min >60 [facility] 50.26 ml/min [facility] 54.9 RATIO 10-20 [facility] 28.0 mmol/L 21.0-32.0 [facility] Serum or plasma calcium monica urement (mass/volume)Ordered By: Edinson Irvin on 04-27-2023 Calcium [Mass/Vol] 8.4 mg/dL 8.5-10.1 [facility] Serum or plasma creatinine m easurement (mass/volume)Ordered By: Edinson Irvin on 04-27-2023 Creatinine [Mass/Vol] 0.51 mg/dL 0.55-1.02 [facility] Comment on above: The validity of the calculated GFR & GFRAA in patients over 70 years has not been determined. Clinical correlation is essential. Serum or plasma urea nitroge n measurement (mass/volume)Ordered By: Edinson Irvin on 04-27-2023 Urea nitrogen [Mass/Vol] 28 mg/dL 7-18 [facility] Thin prep Papanicolaou smear with manual screeningOrdered By: Edinson Irvin on 04-27-2023 Thin prep Papanicolaou smear with manual screening 7 5-15 [facility] Laboratory - CoagulationOrde red By: Edinson Irvin on 04-16-2023 INR Coag (Bld) [Relative time] 1.2 {INR} [facility] PT Coag (PPP) [Time] 14.8 s 11.7-14.9 [facility] Basophil percentageOrdered B y: Edinson Irvin on 04-13-2023 Chloride [Moles/Vol] 104 mmol/L 98-107 [facility] Glucose [Mass/Vol] 89 mg/dL 74-106 [facility] Potassium [Moles/Vol] 3.5 mmol/L 3.5-5.1 [facility] Sodium [Moles/Vol] 136 mmol/L 136-145 [facility] Laboratory - Chemistry and C hemistry - challengeOrdered By: Edinson Irvin on 04-13-2023 CO2 [Moles/Vol] 28.0 mmol/L 21.0-32.0 [facility] Urea nitrogen/Creatinine [Mass ratio] 38.2 mg/mg 10- [facility] No Panel InformationOrdered By: Edinson Irvin on 04-13-2023 Estimated Creatinine Clearance Calc 50.26 ml/min [facility] Estimated GFR (MDRD) Amer 147 mL/min >60 [facility] Comment on above: GFR Calc Estimated GFR (MDRD) Non-Af Amer 121 mL/min >60 [facility] Comment on above: Non- GFR Calc Respiratory pathogens detect ion panel by molecular detection methodOrdered By: Edinson Irvin on 04-13-2023 Respiratory pathogens DNA and RNA panel GWEN+probe (Resp) [facility] Respiratory pathogens DNA and RNA panel GWEN+probe (Resp) [facility] Serum or plasma calcium monica urement (mass/volume)Ordered By: Edinson Irvin on 04-13-2023 Calcium [Mass/Vol] 7.8 mg/dL 8.5-10.1 [facility] Serum or plasma creatinine m easurement (mass/volume)Ordered By: Edinson Irvin on 04-13-2023 Creatinine [Mass/Vol] 0.52 mg/dL 0.55-1.02 [facility] Comment on above: The validity of the calculated GFR & GFRAA in patients over 70 years has not been determined. Clinical correlation is essential. Serum or plasma urea nitroge n measurement (mass/volume)Ordered By: Edinson Irvin on 04-13-2023 Urea nitrogen [Mass/Vol] 20 mg/dL 7-18 [facility] Thin prep Papanicolaou smear with manual screeningOrdered By: Edinson Irvin on 04-13-2023 Thin prep Papanicolaou smear with manual screening 4 5-15 [facility] Absolute lymphocyte countOrd ered By: Edinson Irvin on 04-12-2023 Lymphocytes Auto (Unsp spec) [#/Vol] 1.14 10*3/uL 0.83-4.51 [facility] Automated lymphocyte count a s percentage of total leukocytesOrdered By: Edinson Irvin on 04-12-2023 Lymphocytes/100 WBC Auto (Unsp spec) 27.6 % 19-41 [facility] Basophil percentageOrdered B y: Edinson Irvin on 04-12-2023 Basophil percentage 10.1 g/dL 12.0-15.0 [facility] Basophils (Bld) [#/Vol] 4.1 10*3/uL 4.4-11.0 [facility] Basophils (Bld) [#/Vol] 2.1 10*3/uL 2.0-7.7 [facility] Basophils/100 WBC (Bld) 1.2 % 0-1 [facility] Basophils/100 WBC (Bld) 50.6 % 47-70 [facility] Basophils/100 WBC (Bld) 11.4 % 0-10 [facility] Basophils/100 WBC (Bld) 8.7 % 0-5 [facility] Eosinophils/100 WBC (Bld) 8.7 % 0-5 [facility] Hemoglobin (Bld) [Mass/Vol] 10.1 g/dL 12.0-15.0 [facility] Monocytes/100 WBC (Bld) 11.4 % 0-10 [facility] Neutrophils (Bld) [#/Vol] 2.1 10*3/uL 2.0-7.7 [facility] Neutrophils/100 WBC (Bld) 50.6 % 47-70 [facility] WBC (Bld) [#/Vol] 4.1 10*3/uL 4.4-11.0 [facility] Determination of erythrocyte mean corpuscular volume (MCV)Ordered By: Edinson Irvin on 04-12-2023 MCV (RBC) [Entitic vol] 86.8 fL 81-99 [facility] Erythrocyte distribution wid th ratioOrdered By: Edinson Irvin on 04-12-2023 Erythrocyte distribution width (RBC) [Ratio] 22.8 % 11.6-14.6 [facility] Erythrocyte distribution wid th standard deviationOrdered By: Edinson Irvin on 04-12-2023 Erythrocyte distribution width (RBC) [Entitic vol] 72.1 fL 35.1-43.9 [facility] Hematocrit Auto (Bld) [Volum e fraction]Ordered By: Edinson Irvin 04-12-2023 Hematocrit (Bld) [Volume fraction] 30.9 % 37-47 [facility] Immature granulocytes/100 WB C Auto (Bld)Ordered By: Edinson Irvin 04-12-2023 Immature granulocytes/100 WBC (Bld) 0.500 % 0.0-0.9 [facility] Comment on above: IG% - Immature Granu locytes (promyelocytes, myelocytes and metamyelocytes) > 1% indicates that a LEFT SHIFT is Present. Laboratory - Hematology and Cell countsOrdered By: Edinson Irvin 04-12-2023 MCH (RBC) [Entitic mass] 28.4 pg 27.0-32.0 [facility] MCHC (RBC) [Mass/Vol] 32.7 g/dL 32-36 [facility] Nucleated RBC/100 WBC (Bld) [Ratio] 0 % 0-5 [facility] Platelet mean volume (Bld) [Entitic vol] 9.8 fL 6.2-12.0 [facility] Platelets (Bld) [#/Vol] 119 10*3/uL 150-450 [facility] No Panel InformationOrdered By: Edinson Irvin on 04-12-2023 28.4 pg 27.0-32.0 [facility] 32.7 g/dL 32-36 [facility] 119 K/mm3 150-450 [facility] 9.8 fl 6.2-12.0 [facility] 0 % 0-5 [facility] RBC Auto (Bld) [#/Vol]Ordere d By: Edinson Irvin on 04-12-2023 RBC (Bld) [#/Vol] 3.56 10*6/uL 4.2-5.4 [facility] Blood manual differential co mment interpretation (narrative result)Ordered By: Edinson Irvin on 04-11-2023 Manual differential comment Donte (Bld) [Interp] SCANNED [facility] Blood platelet adequacy dete ction by light microscopyOrdered By: Edinson Irvin on 04-11-2023 Platelets LM Ql (Bld) MOD DEC ADEQ [facility] Laboratory - Hematology and Cell countsOrdered By: Edinson Irvin on 04-11-2023 Anisocytosis Ql (Bld) 1+ [facility] No Panel InformationOrdered By: Edinson Irvin on 04-11-2023 1+ [facility] Basophil percentageOrdered B y: Edinson Irvin on 04-06-2023 Basophil percentage 0 SEEN /hpf 0-5 [facility] Bilirubin Test strip Ql (U)O rdered By: Edinson Irvin on 04-06-2023 Bilirubin Ql (U) Negative Negative [facility] Culture, urineOrdered By: Gal Irvin on 04-06-2023 Bacteria identified Cx Nom (U) Culture exhibits no growth. [facility] Ketones Test strip Ql (U)Ord ered By: Edinson Irvin on 04-06-2023 Ketones Ql (U) Negative Negative [facility] Mucus LM Ql (Urine sed)Order ed By: Edinson Irvin on 04-06-2023 Mucus Ql (Urine sed) 0 SEEN /hpf [facility] Nitrite Test strip Ql (U)Ord ered By: Edinson Irvin on 04-06-2023 Nitrite Ql (U) Negative Negative [facility] No Panel InformationOrdered By: Edinson Irvin on 04-06-2023 Urine RBC 0 SEEN /hpf 0-5 [facility] 0 SEEN /hpf 0-5 [facility] Protein Test strip Ql (U)Ord ered By: Edinson Irvin on 04-06-2023 Protein Ql (U) 15 mg/dl Negative [facility] Review by pathologistOrdered By: Edinson Irvin on 04-06-2023 Pathologist review Donte (Unsp spec) [Interp] Reviewed [facility] Comment on above: Previous reported re sult: Dori urbano Edited by: CECY on 04/06/23:1217Normocytic anemia.MARKED Thrombocytopenia.Clinical correlation necessary.Landon Ontiveros M.D. 04/06/23 AMENDED REPORT 04/06/23 1217 PATH REV previously reported as: Dori urbano Squamous epithelial cells de tection in urine sediment by light microscopyOrdered By: Edinson Irvin on 04-06-2023 Epithelial cells.squamous LM Ql (Urine sed) 0-5 SEEN /hpf 5-10 [facility] Urine blood detectionOrdered By: Edinson Irvin on 04-06-2023 RBC Ql (U) 10 /ul Negative [facility] Urine clarityOrdered By: Edinson Irvin on 04-06-2023 Clarity (U) Clear Clear [facility] Urine color determinationOrd ered By: Edinson Irvin on 04-06-2023 Color (U) Yellow Yellow [facility] Urine glucose detectionOrder ed By: Edinson Irvin on 04-06-2023 Glucose Ql (U) Normal mg/dl Normal [facility] Urine leukocyte esterase det ection by dipstickOrdered By: Edinson Irvin on 04-06-2023 Leukocyte esterase Test strip Ql (U) Negative Negative [facility] Urine pHOrdered By: Edinson Irvin on 04-06-2023 pH (U) 6.0 [pH] 5.0 - 8.0 [facility] Urine sediment bacteria coun t by microscopy (number/high power field)Ordered By: Edinson Irvin on 04-06-2023 Bacteria LM.HPF (Urine sed) [#/Area] 0 /[HPF] None Seen [facility] Urine specific gravity measu rementOrdered By: Edinson Irvin on 04-06-2023 Specific gravity (U) [Rel density] 1.015 1.002-1.03 0 [facility] Urine urobilinogen measureme ntOrdered By: Edinson Irvin on 04-06-2023 Urobilinogen Ql (U) Normal mg/dl Normal [facility] Absolute lymphocyte countOrd ered By: Jasmyn Chan on 04-05-2023 Lymphocytes Auto (Unsp spec) [#/Vol] 0.61 10*3/uL 0.83-4.51 [facility] Automated lymphocyte count a s percentage of total leukocytesOrdered By: Jasmyn Chan on 04-05-2023 Lymphocytes/100 WBC Auto (Unsp spec) 10.5 % 19-41 [facility] Basophil percentageOrdered B y: Jasmyn Chan on 04-05-2023 Basophil percentage 9.6 g/dL 12.0-15.0 [facility] Basophils (Bld) [#/Vol] 5.8 10*3/uL 4.4-11.0 [facility] Basophils (Bld) [#/Vol] 4.4 10*3/uL 2.0-7.7 [facility] Basophils/100 WBC (Bld) 0.2 % 0-1 [facility] Basophils/100 WBC (Bld) 74.7 % 47-70 [facility] Basophils/100 WBC (Bld) 8.8 % 0-10 [facility] Basophils/100 WBC (Bld) 5.3 % 0-5 [facility] Eosinophils/100 WBC (Bld) 5.3 % 0-5 [facility] Hemoglobin (Bld) [Mass/Vol] 9.6 g/dL 12.0-15.0 [facility] Monocytes/100 WBC (Bld) 8.8 % 0-10 [facility] Neutrophils (Bld) [#/Vol] 4.4 10*3/uL 2.0-7.7 [facility] Neutrophils/100 WBC (Bld) 74.7 % 47-70 [facility] WBC (Bld) [#/Vol] 5.8 10*3/uL 4.4-11.0 [facility] Blood platelet adequacy dete ction by light microscopyOrdered By: Jasmyn Chan on 04-05-2023 Platelets LM Ql (Bld) MKD DEC ADEQ [facility] Determination of erythrocyte mean corpuscular volume (MCV)Ordered By: Jasmyn Chan on 04-05-2023 MCV (RBC) [Entitic vol] 85.0 fL 81-99 [facility] Erythrocyte distribution wid th ratioOrdered By: Jasmyn Chan on 04-05-2023 Erythrocyte distribution width (RBC) [Ratio] 22.8 % 11.6-14.6 [facility] Erythrocyte distribution wid th standard deviationOrdered By: Jasmyn Chan on 04-05-2023 Erythrocyte distribution width (RBC) [Entitic vol] 69.7 fL 35.1-43.9 [facility] Hematocrit Auto (Bld) [Volum e fraction]Ordered By: Jasmyn Chan on 04-05-2023 Hematocrit (Bld) [Volume fraction] 28.8 % 37-47 [facility] Immature granulocytes/100 WB C Auto (Bld)Ordered By: Jasmyn Chan on 04-05-2023 Immature granulocytes/100 WBC (Bld) 0.500 % 0.0-0.9 [facility] Comment on above: IG% - Immature Granu locytes (promyelocytes, myelocytes and metamyelocytes) > 1% indicates that a LEFT SHIFT is Present. Laboratory - Hematology and Cell countsOrdered By: Jasmyn Chan on 04-05-2023 Anisocytosis Ql (Bld) 2+ [facility] MCH (RBC) [Entitic mass] 28.3 pg 27.0-32.0 [facility] MCHC (RBC) [Mass/Vol] 33.3 g/dL 32-36 [facility] Nucleated RBC/100 WBC (Bld) [Ratio] 0 % 0-5 [facility] Platelet mean volume (Bld) [Entitic vol] 9.9 fL 6.2-12.0 [facility] Platelets (Bld) [#/Vol] 32 10*3/uL 150-450 [facility] No Panel InformationOrdered By: Jasmyn Chan on 04-05-2023 28.3 pg 27.0-32.0 [facility] 33.3 g/dL 32-36 [facility] 32 K/mm3 150-450 [facility] 9.9 fl 6.2-12.0 [facility] 0 % 0-5 [facility] 2+ [facility] RBC Auto (Bld) [#/Vol]Ordere d By: Jasmyn Chan on 04-05-2023 RBC (Bld) [#/Vol] 3.39 10*6/uL 4.2-5.4 [facility] Review by pathologistOrdered By: Jasmyn Chan on 04-05-2023 Pathologist review Donte (Unsp spec) [Interp] Reviewed [facility] Comment on above: Previous reported re sult: Dori urbano Edited by: RGOVIKTOR on 04/05/23:1300Normocytic anemia.Marked Thrombocytopenia.Clinical correlation necessary.Landon Ontiveros M.D. 04/05/23 AMENDED REPORT 04/05/23 1300 PATH REV previously reported as: Dori urbano Blood manual differential co mment interpretation (narrative result)Ordered By: Jasmyn Chan on 04-04-2023 Manual differential comment Donte (Bld) [Interp] SCANNED [facility] Comment on above: LYMPHOPENIA NOTEDTHR OMBOCYTOPENIA NOTED Laboratory - CoagulationOrde red By: Laine Veras on 04-03-2023 INR Coag (Bld) [Relative time] 1.3 {INR} [facility] PT Coag (PPP) [Time] 16.2 s 11.7-14.9 [facility] No Panel InformationOrdered By: Laine Veras on 04-03-2023 16.2 SECONDS 11.7-14.9 [facility] 1.3 [facility] Basophil percentageOrdered B y: Alisa Mathew on 04-02-2023 Basophil percentage 86 mg/dL 74-106 [facility] Basophil percentage 4.9 g/dL 6.4-8.2 [facility] Basophil percentage 1.70 mg/dL 0.20-1.00 [facility] Basophil percentage 134 mmol/L 136-145 [facility] Basophil percentage 3.6 mmol/L 3.5-5.1 [facility] Basophil percentage 102 mmol/L 98-107 [facility] Bilirubin [Mass/Vol] 1.70 mg/dL 0.20-1.00 [facility] Comment on above: For patients on eltr ombopag therapy, use of Dimension [place] TBIL is not recommended. Chloride [Moles/Vol] 102 mmol/L 98-107 [facility] Glucose [Mass/Vol] 86 mg/dL 74-106 [facility] Potassium [Moles/Vol] 3.6 mmol/L 3.5-5.1 [facility] Protein [Mass/Vol] 4.9 g/dL 6.4-8.2 [facility] Sodium [Moles/Vol] 134 mmol/L 136-145 [facility] Laboratory - Chemistry and C hemistry - challengeOrdered By: Alisa Mathew on 04-02-2023 Albumin/Globulin [Mass ratio] 0.7 {ratio} 0.9-2.4 [facility] ALP [Catalytic activity/Vol] 84 U/L 45-117 [facility] ALT [Catalytic activity/Vol] 35 U/L 13-56 [facility] CO2 [Moles/Vol] 27.0 mmol/L 21.0-32.0 [facility] Globulin (S) [Mass/Vol] 2.9 g/dL 2.2-4.2 [facility] Urea nitrogen/Creatinine [Mass ratio] 25.1 mg/mg 10-20 [facility] No Panel InformationOrdered By: Alisa Mathew on 04-02-2023 Estimated Creatinine Clearance Calc 50.26 ml/min [facility] Estimated GFR (MDRD) Amer 149 mL/min >60 [facility] Comment on above: GFR Calc Estimated GFR (MDRD) Non-Af Amer 123 mL/min >60 [facility] Comment on above: Non- GFR Calc 123 mL/min >60 [facility] 149 mL/min >60 [facility] 50.26 ml/min [facility] 25.1 RATIO 10-20 [facility] 2.9 g/dL 2.2-4.2 [facility] 0.7 RATIO 0.9-2.4 [facility] 84 U/L 45-117 [facility] 35 U/L 13-56 [facility] 27.0 mmol/L 21.0-32.0 [facility] Serum or plasma calcium monica urement (mass/volume)Ordered By: Alisa Mathew on 04-02-2023 Calcium [Mass/Vol] 7.2 mg/dL 8.5-10.1 [facility] Serum or plasma creatinine m easurement (mass/volume)Ordered By: Alisa Mathew on 04-02-2023 Creatinine [Mass/Vol] 0.52 mg/dL 0.55-1.02 [facility] Comment on above: The validity of the calculated GFR & GFRAA in patients over 70 years has not been determined. Clinical correlation is essential. Serum or plasma urea nitroge n measurement (mass/volume)Ordered By: Alisa Mathew on 04-02-2023 Urea nitrogen [Mass/Vol] 13 mg/dL 7-18 [facility] Thin prep Papanicolaou smear with manual screeningOrdered By: Alisa Mathew on 04-02-2023 Thin prep Papanicolaou smear with manual screening 2.0 g/dL 3.2-5.0 [facility] Thin prep Papanicolaou smear with manual screening 20 U/L 15-37 [facility] Thin prep Papanicolaou smear with manual screening 5 5-15 [facility] Iron measurement (mass/mass) Ordered By: Alisa Mathew on 04-01-2023 Iron (Unsp spec) [Mass/Mass] 21 ug/dL 50-170 [facility] Laboratory - Chemistry and C hemistry - challengeOrdered By: Alisa Mathew on 04-01-2023 Ferritin [Mass/Vol] 268 ng/mL 8-252 [facility] Laboratory - Chemistry and C hemistry - challengeOrdered By: Laine Veras on 04-01-2023 Magnesium [Mass/Vol] 2.1 mg/dL 1.6-2.6 [facility] No Panel InformationOrdered By: Alisa Mathew on 04-01-2023 Total Iron Binding Capacity 243 ug/dL 250-450 [facility] 243 ug/dL 250-450 [facility] 268 ng/mL 8-252 [facility] No Panel InformationOrdered By: Laine Veras on 04-01-2023 2.1 mg/dL 1.6-2.6 [facility] Serum or plasma iron saturat ion measurement (mass fraction)Ordered By: Alisa Mathew on 04-01-2023 Iron saturation [Mass fraction] 8.6 % 15.0-55.0 [facility] Absolute lymphocyte countOrd ered By: Frederick Almazan on 03-31-2023 Lymphocytes Auto (Unsp spec) [#/Vol] 0.59 10*3/uL 0.83-4.51 [facility] Automated lymphocyte count a s percentage of total leukocytesOrdered By: Frederick Almazan on 03-31-2023 Lymphocytes/100 WBC Auto (Unsp spec) 3.0 % 19-41 [facility] Basophil percentageOrdered B y: Frederick Almazan on 03-31-2023 Basophil percentage 1.4 mmol/L 0.4-2.0 [facility] Basophils/100 WBC (Bld) 0.1 % 0-1 [facility] Chloride [Moles/Vol] 99 mmol/L 98-107 [facility] Eosinophils/100 WBC (Bld) 0.1 % 0-5 [facility] Glucose [Mass/Vol] 108 mg/dL 74-106 [facility] Comment on above: Fasting Glucose resu lt from 100 to 125 mg/dL suggests IMPAIRED HOMEOSTASIS per A.D.A. criteria. Hemoglobin (Bld) [Mass/Vol] 8.3 g/dL 12.0-15.0 [facility] Lactate [Moles/Vol] 1.4 mmol/L 0.4-2.0 [facility] Monocytes/100 WBC (Bld) 5.0 % 0-10 [facility] Neutrophils (Bld) [#/Vol] 17.6 10*3/uL 2.0-7.7 [facility] Neutrophils/100 WBC (Bld) 90.8 % 47-70 [facility] Potassium [Moles/Vol] 3.2 mmol/L 3.5-5.1 [facility] Sodium [Moles/Vol] 134 mmol/L 136-145 [facility] WBC (Bld) [#/Vol] 19.4 10*3/uL 4.4-11.0 [facility] Blood manual differential co mment interpretation (narrative result)Ordered By: Frederick Almazan on 03-31-2023 Manual differential comment Donte (Bld) [Interp] SCANNED [facility] Blood platelet adequacy dete ction by light microscopyOrdered By: Frederick Almazan on 03-31-2023 Platelets LM Ql (Bld) MOD DEC ADEQ [facility] Determination of erythrocyte mean corpuscular volume (MCV)Ordered By: Frederick Almazan on 03-31-2023 MCV (RBC) [Entitic vol] 86.8 fL 81-99 [facility] Erythrocyte distribution wid th ratioOrdered By: Frederick Almazan on 03-31-2023 Erythrocyte distribution width (RBC) [Ratio] 24.1 % 11.6-14.6 [facility] Erythrocyte distribution wid th standard deviationOrdered By: Frederick Almazan on 03-31-2023 Erythrocyte distribution width (RBC) [Entitic vol] 75.1 fL 35.1-43.9 [facility] Erythrocyte sedimentation ra teOrdered By: Laine Veras on 03-31-2023 ESR (Bld) [Velocity] 7 mm/h 0-30 [facility] Hematocrit Auto (Bld) [Volum e fraction]Ordered By: Frederick Almazan on 03-31-2023 Hematocrit (Bld) [Volume fraction] 24.9 % 37-47 [facility] Immature granulocytes/100 WB C Auto (Bld)Ordered By: Frederick Almazan on 03-31-2023 Immature granulocytes/100 WBC (Bld) 1.000 % 0.0-0.9 [facility] Comment on above: IG% - Immature Granu locytes (promyelocytes, myelocytes and metamyelocytes) > 1% indicates that a LEFT SHIFT is Present. Laboratory - Chemistry and C hemistry - challengeOrdered By: Frederick Almazan on 03-31-2023 CK [Catalytic activity/Vol] 125 U/L 26-192 [facility] CO2 [Moles/Vol] 29.0 mmol/L 21.0-32.0 [facility] Natriuretic peptide B (Bld) [Mass/Vol] 97.8 pg/mL 0-100 [facility] Urea nitrogen/Creatinine [Mass ratio] 41.2 mg/mg 10-20 [facility] Laboratory - CoagulationOrde red By: Frederick Almazan on 03-31-2023 INR Coag (Bld) [Relative time] 1.3 {INR} [facility] PT Coag (PPP) [Time] 16.0 s 11.7-14.9 [facility] Laboratory - Hematology and Cell countsOrdered By: Frederick Almazan on 03-31-2023 Anisocytosis Ql (Bld) 2+ [facility] MCH (RBC) [Entitic mass] 28.9 pg 27.0-32.0 [facility] MCHC (RBC) [Mass/Vol] 33.3 g/dL 32-36 [facility] Nucleated RBC/100 WBC (Bld) [Ratio] 0 % 0-5 [facility] Platelet mean volume (Bld) [Entitic vol] 10.4 fL 6.2-12.0 [facility] Platelets (Bld) [#/Vol] 95 10*3/uL 150-450 [facility] Macrocytes detectionOrdered By: Frederick Almazan on 03-31-2023 Macrocytes Ql (Bld) 1+ [facility] No Panel InformationOrdered By: Laine Veras on 03-31-2023 C-Reactive Protein Extended Range 35.90 mg/L 0.0-3.0 [facility] Comment on above: C-Reactive Protein ( CRP) provides useful information for thediagnosis, therapy and monitoring of inflammatory processesand associated diseases. For the evaluation of Relative Riskfor Cardiovascular Disease, a High Sensitivity CRP (HSCRP)should be ordered. 35.90 mg/L 0.0-3.0 [facility] No Panel InformationOrdered By: Frederick Almazan on 03-31-2023 Estimated Creatinine Clearance Calc 50.26 ml/min [facility] Estimated GFR (MDRD) Amer 96 mL/min >60 [facility] Comment on above: GFR Calc Estimated GFR (MDRD) Non-Af Amer 80 mL/min >60 [facility] Comment on above: Non- GFR Calc 125 U/L 26-192 [facility] 97.8 pg/mL 0-100 [facility] RBC Auto (Bld) [#/Vol]Ordere d By: Frederick Almazan on 03-31-2023 RBC (Bld) [#/Vol] 2.87 10*6/uL 4.2-5.4 [facility] Serum or plasma calcium monica urement (mass/volume)Ordered By: Frederick Almazan on 03-31-2023 Calcium [Mass/Vol] 7.8 mg/dL 8.5-10.1 [facility] Serum or plasma creatinine m easurement (mass/volume)Ordered By: Frederick Almazan on 03-31-2023 Creatinine [Mass/Vol] 0.75 mg/dL 0.55-1.02 [facility] Comment on above: The validity of the calculated GFR & GFRAA in patients over 70 years has not been determined. Clinical correlation is essential. Serum or plasma urea nitroge n measurement (mass/volume)Ordered By: Frederick Almazan on 03-31-2023 Urea nitrogen [Mass/Vol] 31 mg/dL 7-18 [facility] Thin prep Papanicolaou smear with manual screeningOrdered By: Frederick Almazan on 03-31-2023 Thin prep Papanicolaou smear with manual screening 1+ [facility] Thin prep Papanicolaou smear with manual screening 6 5-15 [facility] Absolute lymphocyte countOrd ered By: Etienne Thacker on 03-28-2023 Lymphocytes Auto (Unsp spec) [#/Vol] 1.04 10*3/uL 0.83-4.51 [facility] Automated lymphocyte count a s percentage of total leukocytesOrdered By: Etienne Thacker on 03-28-2023 Lymphocytes/100 WBC Auto (Unsp spec) 7.4 % 19-41 [facility] Basophil percentageOrdered B y: Etienne Thacker on 03-28-2023 Basophil percentage 9.6 g/dL 12.0-15.0 [facility] Basophil percentage 113 mg/dL 74-106 [facility] Basophil percentage 131 mmol/L 136-145 [facility] Basophil percentage 4.0 mmol/L 3.5-5.1 [facility] Basophil percentage 98 mmol/L 98-107 [facility] Basophils (Bld) [#/Vol] 14.1 10*3/uL 4.4-11.0 [facility] Basophils (Bld) [#/Vol] 11.3 10*3/uL 2.0-7.7 [facility] Basophils/100 WBC (Bld) 0.2 % 0-1 [facility] Basophils/100 WBC (Bld) 80.2 % 47-70 [facility] Basophils/100 WBC (Bld) 9.8 % 0-10 [facility] Basophils/100 WBC (Bld) 0.0 % 0-5 [facility] Chloride [Moles/Vol] 98 mmol/L 98-107 [facility] Eosinophils/100 WBC (Bld) 0.0 % 0-5 [facility] Glucose [Mass/Vol] 113 mg/dL 74-106 [facility] Comment on above: Fasting Glucose resu lt from 100 to 125 mg/dL suggests IMPAIRED HOMEOSTASIS per A.D.A. criteria. Hemoglobin (Bld) [Mass/Vol] 9.6 g/dL 12.0-15.0 [facility] Monocytes/100 WBC (Bld) 9.8 % 0-10 [facility] Neutrophils (Bld) [#/Vol] 11.3 10*3/uL 2.0-7.7 [facility] Neutrophils/100 WBC (Bld) 80.2 % 47-70 [facility] Potassium [Moles/Vol] 4.0 mmol/L 3.5-5.1 [facility] Sodium [Moles/Vol] 131 mmol/L 136-145 [facility] WBC (Bld) [#/Vol] 14.1 10*3/uL 4.4-11.0 [facility] Blood manual differential co mment interpretation (narrative result)Ordered By: Etienne Thacker on 03-28-2023 Manual differential comment Donte (Bld) [Interp] See comment [facility] Comment on above: 1+ ANISOCYTOSIS Determination of erythrocyte mean corpuscular volume (MCV)Ordered By: Etienne Thacker on 03-28-2023 MCV (RBC) [Entitic vol] 83.2 fL 81-99 [facility] Erythrocyte distribution wid th ratioOrdered By: Etienne Thacker on 03-28-2023 Erythrocyte distribution width (RBC) [Ratio] 22.1 % 11.6-14.6 [facility] Erythrocyte distribution wid th standard deviationOrdered By: Etienne Thacker on 03-28-2023 Erythrocyte distribution width (RBC) [Entitic vol] 52.7 fL 35.1-43.9 [facility] Hematocrit Auto (Bld) [Volum e fraction]Ordered By: Etienne Thacker on 03-28-2023 Hematocrit (Bld) [Volume fraction] 28.8 % 37-47 [facility] Immature granulocytes/100 WB C Auto (Bld)Ordered By: Etienne Thacker on 03-28-2023 Immature granulocytes/100 WBC (Bld) 2.400 % 0.0-0.9 [facility] Comment on above: IG% - Immature Granu locytes (promyelocytes, myelocytes and metamyelocytes) > 1% indicates that a LEFT SHIFT is Present. Laboratory - Chemistry and C hemistry - challengeOrdered By: Etienne Thacker on 03-28-2023 CO2 [Moles/Vol] 25.0 mmol/L 21.0-32.0 [facility] Natriuretic peptide B (Bld) [Mass/Vol] 162.5 pg/mL 0-100 [facility] Urea nitrogen/Creatinine [Mass ratio] 35.6 mg/mg 10-20 [facility] Laboratory - CoagulationOrde red By: Etienne Thacker on 03-28-2023 INR Coag (Bld) [Relative time] 3.1 {INR} [facility] PT Coag (PPP) [Time] 32.4 s 11.7-14.9 [facility] Laboratory - Hematology and Cell countsOrdered By: Etienne Thacker on 03-28-2023 MCH (RBC) [Entitic mass] 27.7 pg 27.0-32.0 [facility] MCHC (RBC) [Mass/Vol] 33.3 g/dL 32-36 [facility] Nucleated RBC/100 WBC (Bld) [Ratio] 0.1 % 0-5 [facility] Platelet mean volume (Bld) [Entitic vol] 10.3 fL 6.2-12.0 [facility] Platelets (Bld) [#/Vol] 170 10*3/uL 150-450 [facility] No Panel InformationOrdered By: Etienne Thacker on 03-28-2023 Estimated Creatinine Clearance Calc 39.81 ml/min [facility] Estimated GFR (MDRD) Amer 69 mL/min >60 [facility] Comment on above: GFR Calc Estimated GFR (MDRD) Non-Af Amer 57 mL/min >60 [facility] Comment on above: Non- GFR Calc Troponin I High Sensitivity 17 pg/mL 3.0-54.0 [facility] Comment on above: Please Note: New [place] t Units and Gender Specific Reference Ranges. For more information see Policy Stat Procedure [place] High Sensitivity Troponin (TNIH) and attachments. 27.7 pg 27.0-32.0 [facility] 33.3 g/dL 32-36 [facility] 170 K/mm3 150-450 [facility] 10.3 fl 6.2-12.0 [facility] 0.1 % 0-5 [facility] 32.4 SECONDS 11.7-14.9 [facility] 3.1 [facility] 57 mL/min >60 [facility] 69 mL/min >60 [facility] 39.81 ml/min [facility] 35.6 RATIO 10-20 [facility] 17 pg/mL 3.0-54.0 [facility] 25.0 mmol/L 21.0-32.0 [facility] 162.5 pg/mL 0-100 [facility] RBC Auto (Bld) [#/Vol]Ordere d By: Etienne Thacker on 03-28-2023 RBC (Bld) [#/Vol] 3.46 10*6/uL 4.2-5.4 [facility] Serum or plasma calcium monica urement (mass/volume)Ordered By: Etienne Thacker on 03-28-2023 Calcium [Mass/Vol] 8.5 mg/dL 8.5-10.1 [facility] Serum or plasma creatinine m easurement (mass/volume)Ordered By: Etienne Thacker on 03-28-2023 Creatinine [Mass/Vol] 1.01 mg/dL 0.55-1.02 [facility] Comment on above: The validity of the calculated GFR & GFRAA in patients over 70 years has not been determined. Clinical correlation is essential. Serum or plasma urea nitroge n measurement (mass/volume)Ordered By: Etienne Thacker on 03-28-2023 Urea nitrogen [Mass/Vol] 36 mg/dL 7-18 [facility] Thin prep Papanicolaou smear with manual screeningOrdered By: Etienne Thacker on 03-28-2023 Thin prep Papanicolaou smear with manual screening 8 5-15 [facility] Absolute lymphocyte countOrd ered By: Laine Veras on 03-27-2023 Lymphocytes Auto (Unsp spec) [#/Vol] 1.08 10*3/uL 0.83-4.51 [facility] Automated lymphocyte count a s percentage of total leukocytesOrdered By: Laine Veras on 03-27-2023 Lymphocytes/100 WBC Auto (Unsp spec) 8.7 % 19-41 [facility] Basophil percentageOrdered B y: Laine Veras on 03-27-2023 Basophil percentage 7.9 g/dL 12.0-15.0 [facility] Basophil percentage 103 mg/dL 74-106 [facility] Basophil percentage 5.3 g/dL 6.4-8.2 [facility] Basophil percentage 1.70 mg/dL 0.20-1.00 [facility] Basophil percentage 132 mmol/L 136-145 [facility] Basophil percentage 4.1 mmol/L 3.5-5.1 [facility] Basophil percentage 101 mmol/L 98-107 [facility] Basophils (Bld) [#/Vol] 12.4 10*3/uL 4.4-11.0 [facility] Basophils (Bld) [#/Vol] 9.5 10*3/uL 2.0-7.7 [facility] Basophils/100 WBC (Bld) 0.2 % 0-1 [facility] Basophils/100 WBC (Bld) 76.4 % 47-70 [facility] Basophils/100 WBC (Bld) 10.7 % 0-10 [facility] Basophils/100 WBC (Bld) 0.0 % 0-5 [facility] Bilirubin [Mass/Vol] 1.70 mg/dL 0.20-1.00 [facility] Comment on above: For patients on eltr ombopag therapy, use of Dimension [place] TBIL is not recommended. Chloride [Moles/Vol] 101 mmol/L 98-107 [facility] Eosinophils/100 WBC (Bld) 0.0 % 0-5 [facility] Glucose [Mass/Vol] 103 mg/dL 74-106 [facility] Comment on above: Fasting Glucose resu lt from 100 to 125 mg/dL suggests IMPAIRED HOMEOSTASIS per A.D.A. criteria. Hemoglobin (Bld) [Mass/Vol] 7.9 g/dL 12.0-15.0 [facility] Monocytes/100 WBC (Bld) 10.7 % 0-10 [facility] Neutrophils (Bld) [#/Vol] 9.5 10*3/uL 2.0-7.7 [facility] Neutrophils/100 WBC (Bld) 76.4 % 47-70 [facility] Potassium [Moles/Vol] 4.1 mmol/L 3.5-5.1 [facility] Protein [Mass/Vol] 5.3 g/dL 6.4-8.2 [facility] Sodium [Moles/Vol] 132 mmol/L 136-145 [facility] WBC (Bld) [#/Vol] 12.4 10*3/uL 4.4-11.0 [facility] Blood manual differential co mment interpretation (narrative result)Ordered By: Laine Veras on 03-27-2023 Manual differential comment Donte (Bld) [Interp] SCANNED [facility] Determination of erythrocyte mean corpuscular volume (MCV)Ordered By: Laine Veras on 03-27-2023 MCV (RBC) [Entitic vol] 85.0 fL 81-99 [facility] Erythrocyte distribution wid th ratioOrdered By: Laine Veras on 03-27-2023 Erythrocyte distribution width (RBC) [Ratio] 20.5 % 11.6-14.6 [facility] Erythrocyte distribution wid th standard deviationOrdered By: Laine Veras on 03-27-2023 Erythrocyte distribution width (RBC) [Entitic vol] 51.5 fL 35.1-43.9 [facility] Hematocrit Auto (Bld) [Volum e fraction]Ordered By: Laine Veras on 03-27-2023 Hematocrit (Bld) [Volume fraction] 24.4 % 37-47 [facility] Immature granulocytes/100 WB C Auto (Bld)Ordered By: Laine Veras on 03-27-2023 Immature granulocytes/100 WBC (Bld) 4.000 % 0.0-0.9 [facility] Comment on above: IG% - Immature Granu locytes (promyelocytes, myelocytes and metamyelocytes) > 1% indicates that a LEFT SHIFT is Present. Laboratory - Chemistry and C hemistry - challengeOrdered By: Laine Veras on 03-27-2023 Albumin/Globulin [Mass ratio] 0.8 {ratio} 0.9-2.4 [facility] ALP [Catalytic activity/Vol] 170 U/L 45-117 [facility] ALT [Catalytic activity/Vol] 65 U/L 13-56 [facility] CO2 [Moles/Vol] 24.0 mmol/L 21.0-32.0 [facility] Globulin (S) [Mass/Vol] 3.0 g/dL 2.2-4.2 [facility] Magnesium [Mass/Vol] 2.6 mg/dL 1.6-2.6 [facility] Urea nitrogen/Creatinine [Mass ratio] 29.9 mg/mg 10-20 [facility] Laboratory - CoagulationOrde red By: Laine Veras on 03-27-2023 INR Coag (Bld) [Relative time] 3.9 {INR} [facility] PT Coag (PPP) [Time] 38.9 s 11.7-14.9 [facility] Laboratory - Hematology and Cell countsOrdered By: Laine Veras on 03-27-2023 Anisocytosis Ql (Bld) 2+ [facility] MCH (RBC) [Entitic mass] 27.5 pg 27.0-32.0 [facility] MCHC (RBC) [Mass/Vol] 32.4 g/dL 32-36 [facility] Nucleated RBC/100 WBC (Bld) [Ratio] 0.2 % 0-5 [facility] Platelet mean volume (Bld) [Entitic vol] 10.2 fL 6.2-12.0 [facility] Platelets (Bld) [#/Vol] 134 10*3/uL 150-450 [facility] No Panel InformationOrdered By: Laine Veras on 03-27-2023 Estimated Creatinine Clearance Calc 46.22 ml/min [facility] Estimated GFR (MDRD) Amer 82 mL/min >60 [facility] Comment on above: GFR Calc Estimated GFR (MDRD) Non-Af Amer 67 mL/min >60 [facility] Comment on above: Non- GFR Calc 27.5 pg 27.0-32.0 [facility] 32.4 g/dL 32-36 [facility] 134 K/mm3 150-450 [facility] 10.2 fl 6.2-12.0 [facility] 0.2 % 0-5 [facility] 2+ [facility] 38.9 SECONDS 11.7-14.9 [facility] 3.9 [facility] 67 mL/min >60 [facility] 82 mL/min >60 [facility] 46.22 ml/min [facility] 29.9 RATIO 10-20 [facility] 3.0 g/dL 2.2-4.2 [facility] 0.8 RATIO 0.9-2.4 [facility] 170 U/L 45-117 [facility] 65 U/L 13-56 [facility] 2.6 mg/dL 1.6-2.6 [facility] 24.0 mmol/L 21.0-32.0 [facility] RBC Auto (Bld) [#/Vol]Ordere d By: Laine Veras on 03-27-2023 RBC (Bld) [#/Vol] 2.87 10*6/uL 4.2-5.4 [facility] Serum or plasma calcium monica urement (mass/volume)Ordered By: Laine Veras on 03-27-2023 Calcium [Mass/Vol] 7.7 mg/dL 8.5-10.1 [facility] Serum or plasma creatinine m easurement (mass/volume)Ordered By: Laine Veras on 03-27-2023 Creatinine [Mass/Vol] 0.87 mg/dL 0.55-1.02 [facility] Comment on above: The validity of the calculated GFR & GFRAA in patients over 70 years has not been determined. Clinical correlation is essential. Serum or plasma thyroid stim ulating hormone (TSH) measurement (units/volume)Ordered By: Laine Veras on 03-27-2023 TSH Qn 0.76 uIU/mL 0.358-3.74 [facility] Serum or plasma urea nitroge n measurement (mass/volume)Ordered By: Laine Veras on 03-27-2023 Urea nitrogen [Mass/Vol] 26 mg/dL 7-18 [facility] Thin prep Papanicolaou smear with manual screeningOrdered By: Laine Veras on 03-27-2023 Thin prep Papanicolaou smear with manual screening 2.3 g/dL 3.2-5.0 [facility] Thin prep Papanicolaou smear with manual screening 27 U/L 15-37 [facility] Thin prep Papanicolaou smear with manual screening 7 5-15 [facility] Absolute lymphocyte countOrd ered By: Martín Cornejo on 03-26-2023 Lymphocytes Auto (Unsp spec) [#/Vol] 1.06 10*3/uL 0.83-4.51 [facility] Automated lymphocyte count a s percentage of total leukocytesOrdered By: Martín Cornejo on 03-26-2023 Lymphocytes/100 WBC Auto (Unsp spec) 6.3 % 19-41 [facility] Basophil percentageOrdered B y: Martín Cornejo on 03-26-2023 Basophil percentage 0 SEEN /hpf 0-5 [facility] Basophils/100 WBC (Bld) 0.1 % 0-1 [facility] Chloride [Moles/Vol] 101 mmol/L 98-107 [facility] Eosinophils/100 WBC (Bld) 0.0 % 0-5 [facility] Glucose [Mass/Vol] 111 mg/dL 74-106 [facility] Comment on above: Fasting Glucose resu lt from 100 to 125 mg/dL suggests IMPAIRED HOMEOSTASIS per A.D.A. criteria. Hemoglobin (Bld) [Mass/Vol] 8.9 g/dL 12.0-15.0 [facility] Monocytes/100 WBC (Bld) 9.6 % 0-10 [facility] Neutrophils (Bld) [#/Vol] 13.6 10*3/uL 2.0-7.7 [facility] Neutrophils/100 WBC (Bld) 80.3 % 47-70 [facility] Potassium [Moles/Vol] 3.6 mmol/L 3.5-5.1 [facility] Sodium [Moles/Vol] 135 mmol/L 136-145 [facility] WBC (Bld) [#/Vol] 16.9 10*3/uL 4.4-11.0 [facility] Bilirubin Test strip Ql (U)O rdered By: Martín Cornejo on 03-26-2023 Bilirubin Ql (U) Negative Negative [facility] Blood manual differential co mment interpretation (narrative result)Ordered By: Martín Cornejo on 03-26-2023 Manual differential comment Donte (Bld) [Interp] SCANNED [facility] Determination of erythrocyte mean corpuscular volume (MCV)Ordered By: Martín Cornejo on 03-26-2023 MCV (RBC) [Entitic vol] 81.5 fL 81-99 [facility] Erythrocyte distribution wid th ratioOrdered By: Martín Cornejo on 03-26-2023 Erythrocyte distribution width (RBC) [Ratio] 19.6 % 11.6-14.6 [facility] Erythrocyte distribution wid th standard deviationOrdered By: Martín Cornejo on 03-26-2023 Erythrocyte distribution width (RBC) [Entitic vol] 48.8 fL 35.1-43.9 [facility] Hematocrit Auto (Bld) [Volum e fraction]Ordered By: Martín Cornejo on 03-26-2023 Hematocrit (Bld) [Volume fraction] 26.8 % 37-47 [facility] Immature granulocytes/100 WB C Auto (Bld)Ordered By: Martín Cornejo on 03-26-2023 Immature granulocytes/100 WBC (Bld) 3.700 % 0.0-0.9 [facility] Comment on above: IG% - Immature Granu locytes (promyelocytes, myelocytes and metamyelocytes) > 1% indicates that a LEFT SHIFT is Present. International normalized rat io (INR) calculationOrdered By: Martín Cornejo on 03-26-2023 INR Coag (PPP) [Relative time] 3.2 {INR} [facility] Ketones Test strip Ql (U)Ord ered By: Martín Cornejo on 03-26-2023 Ketones Ql (U) Negative Negative [facility] Laboratory - Chemistry and C hemistry - challengeOrdered By: Martín Cornejo on 03-26-2023 CO2 [Moles/Vol] 27.0 mmol/L 21.0-32.0 [facility] Natriuretic peptide B (Bld) [Mass/Vol] 322.3 pg/mL 0-100 [facility] Urea nitrogen/Creatinine [Mass ratio] 34.8 mg/mg 10-20 [facility] Laboratory - CoagulationOrde red By: Martín Cornejo on 03-26-2023 PT Coag (PPP) [Time] 33.3 s 11.7-14.9 [facility] Laboratory - Hematology and Cell countsOrdered By: Martín Cornejo on 03-26-2023 MCH (RBC) [Entitic mass] 27.1 pg 27.0-32.0 [facility] MCHC (RBC) [Mass/Vol] 33.2 g/dL 32-36 [facility] Nucleated RBC/100 WBC (Bld) [Ratio] 0.1 % 0-5 [facility] Platelets (Bld) [#/Vol] 169 10*3/uL 150-450 [facility] Mucus LM Ql (Urine sed)Order ed By: Martín Cornejo on 03-26-2023 Mucus Ql (Urine sed) 0 SEEN /hpf [facility] Nitrite Test strip Ql (U)Ord ered By: Martín Cornejo on 03-26-2023 Nitrite Ql (U) Negative Negative [facility] No Panel InformationOrdered By: Martín Cornejo on 03-26-2023 Urine RBC 0 SEEN /hpf 0-5 [facility] 0 SEEN /hpf 0-5 [facility] Estimated Creatinine Clearance Calc 49.15 ml/min [facility] Estimated GFR (MDRD) Amer 79 mL/min >60 [facility] Comment on above: GFR Calc Estimated GFR (MDRD) Non-Af Amer 66 mL/min >60 [facility] Comment on above: Non- GFR Calc Troponin I High Sensitivity 20 pg/mL 3.0-54.0 [facility] Comment on above: Please Note: New Aubrie t Units and Gender Specific Reference Ranges. For more information see Policy Stat Procedure [place] High Sensitivity Troponin (TNIH) and attachments. 20 pg/mL 3.0-54.0 [facility] 322.3 pg/mL 0-100 [facility] Platelet mean volume Nicholas-Ec ker (Bld) [Entitic vol]Ordered By: Martín Cornejo on 03-26-2023 Platelet mean volume (Bld) [Entitic vol] 9.9 fL 6.2-12.0 [facility] Protein Test strip Ql (U)Ord ered By: Martín Cornejo on 03-26-2023 Protein Ql (U) 30 mg/dl Negative [facility] RBC Auto (Bld) [#/Vol]Ordere d By: Martín Cornejo on 03-26-2023 RBC (Bld) [#/Vol] 3.29 10*6/uL 4.2-5.4 [facility] Review by pathologistOrdered By: Martín Cornejo on 03-26-2023 Pathologist review Donte (Unsp spec) [Interp] June sundeep [facility] Pathologist review Donte (Unsp spec) [Interp] Reviewed [facility] Comment on above: Previous reported re sult: June sundeep Edited by: RGOOD on 03/27/23:1255Neutrophilic leukocytosis with left shift.Normocytic anemia.Clinical correlation necessary.Landon Ontiveros M.D. 03/27/23 AMENDED REPORT 03/27/23 1255 PATH REV previously reported as: June sundeep Serum or plasma calcium monica urement (mass/volume)Ordered By: Martín Cornejo on 03-26-2023 Calcium [Mass/Vol] 8.1 mg/dL 8.5-10.1 [facility] Serum or plasma creatinine m easurement (mass/volume)Ordered By: Martín Cornejo on 03-26-2023 Creatinine [Mass/Vol] 0.89 mg/dL 0.55-1.02 [facility] Comment on above: The validity of the calculated GFR & GFRAA in patients over 70 years has not been determined. Clinical correlation is essential. Serum or plasma urea nitroge n measurement (mass/volume)Ordered By: Martín Cornejo on 03-26-2023 Urea nitrogen [Mass/Vol] 31 mg/dL 7-18 [facility] Squamous epithelial cells de tection in urine sediment by light microscopyOrdered By: Martín Cornejo on 03-26-2023 Epithelial cells.squamous LM Ql (Urine sed) 0 SEEN /hpf 5-10 [facility] Thin prep Papanicolaou smear with manual screeningOrdered By: Martín Cornejo on 03-26-2023 Thin prep Papanicolaou smear with manual screening 7 5-15 [facility] Urine blood detectionOrdered By: Martín Cornejo on 03-26-2023 RBC Ql (U) 10 /ul Negative [facility] Urine clarityOrdered By: Ryder Cornejo on 03-26-2023 Clarity (U) Clear Clear [facility] Urine color determinationOrd ered By: Martín Cornejo on 03-26-2023 Color (U) Yellow Yellow [facility] Urine glucose detectionOrder ed By: Martín Cornejo on 03-26-2023 Glucose Ql (U) Normal mg/dl Normal [facility] Urine leukocyte esterase det ection by dipstickOrdered By: Martín Cornejo on 03-26-2023 Leukocyte esterase Test strip Ql (U) Negative Negative [facility] Urine pHOrdered By: Martín rebolledo on 03-26-2023 pH (U) 6.5 [pH] 5.0 - 8.0 [facility] Urine sediment bacteria coun t by microscopy (number/high power field)Ordered By: Martín Cornejo on 03-26-2023 Bacteria LM.HPF (Urine sed) [#/Area] 0 /[HPF] None Seen [facility] Urine specific gravity measu rementOrdered By: Martín Cornejo on 03-26-2023 Specific gravity (U) [Rel density] 1.015 1.002-1.03 0 [facility] Urine urobilinogen measureme ntOrdered By: Martín Cornejo on 03-26-2023 Urobilinogen Ql (U) Normal mg/dl Normal [facility] Basic metabolic 2000 panelon 03-25-2023 Anion gap [Moles/Vol] 11 mmol/L Normal 9-18 [facility] Comment on above: Order Comment: Speci men Type: BLOOD SPECIMEN Ordering Facility: [facility] Address: [address] [place] [address] Performed By: #### 2 4321-2 #### [facility] CLIA [id number] 1 [place] [address] [place] Calcium [Mass/Vol] 8.6 mg/dL Normal 8.5-10.2 [facility] Comment on above: Order Comment: Speci men Type: BLOOD SPECIMEN Ordering Facility: [facility] Address: [address] [place] [address] Performed By: #### 2 4321-2 #### [facility] CLIA [id number] [address] Chloride [Moles/Vol] 96 mmol/L Low 97-105 [facility] Comment on above: Order Comment: Speci men Type: BLOOD SPECIMEN Ordering Facility: [facility] Address: [address] [place] [address] Performed By: #### 2 4321-2 #### [facility] CLIA [id number] [address] OF [place] CO2 [Moles/Vol] 23 mmol/L Normal 22-30 [facility] Comment on above: Order Comment: Speci men Type: BLOOD SPECIMEN Ordering Facility: [facility] Address: [address] [place] [address] Performed By: #### 2 4321-2 #### [facility] CLIA [id number] [address] Creatinine [Mass/Vol] 0.84 mg/dL Normal 0.58-0.96 [facility] Comment on above: Order Comment: Speci men Type: BLOOD SPECIMEN Ordering Facility: [facility] Address: [address] [place] [address] Performed By: #### 2 4321-2 #### [facility] CLIA [id number] [address] [place] [address] Creatinine and Glomerular filtration rate.predicted panel (S/P/Bld) 73 mL/min/1.73m??? Normal >=60 [facility] Comment on above: Order Comment: Speci men Type: BLOOD SPECIMEN Ordering Facility: [facility] Address: [address] [place] [address] Result Comment: Meaghan mated Glomerular Filtration Rate [...] GFR. Performed By: #### 2 4321-2 #### [facility] CLIA [id number] [address] [place] [address] [place] Glucose [Mass/Vol] 134 mg/dL High 74-99 [facility] Comment on above: Order Comment: Renay adkins Type: BLOOD SPECIMEN Ordering Facility: [facility] Address: [address] [place] [address] Result Comment: The [place] [employer] (ADA) provides guidance for cutoff [...] Standards of Medical Care in Diabetes 2016, [place] [employer]. Diabetes Care. 2016.39(Suppl 1). Performed By: #### 2 4321-2 #### [facility] CLIA [id number] [address] [place] [address] [place] Potassium [Moles/Vol] 3.9 mmol/L Normal 3.7-5.1 [facility] Comment on above: Order Comment: Renay adkins Type: BLOOD SPECIMEN Ordering Facility: [facility] Address: [address] [place] [address] Performed By: #### 2 4321-2 #### [facility] CLIA [id number] [address] [place] [address] [place] Sodium [Moles/Vol] 130 mmol/L Low 136-144 [facility] Comment on above: Order Comment: Renay adkins Type: BLOOD SPECIMEN Ordering Facility: [facility] Address: [address] [place] [address] Performed By: #### 2 4321-2 #### [facility] CLIA [id number] [address] [place] [address] [place] Urea nitrogen [Mass/Vol] 27 mg/dL High 7-21 [facility] Comment on above: Order Comment: Speci men Type: BLOOD SPECIMEN Ordering Facility: [facility] Address: [address] [place] [address] Performed By: #### 2 4321-2 #### [facility] CLIA [id number] [address] CBC panel Auto (Bld)on 03-25 Erythrocyte distribution width (RBC) [Ratio] 17.8 % High 11.5-15.0 [facility] Comment on above: Order Comment: Speci men Type: BLOOD SPECIMEN Ordering Facility: [facility] Address: [address] [place] [address] Performed By: #### 1 4196-0, 80229-9 #### [facility] CLIA [id number] [address] STATES OF [facility] Hematocrit (Bld) [Volume fraction] 26.8 % Low 36.0-46.0 [facility] Comment on above: Order Comment: Speci men Type: BLOOD SPECIMEN Ordering Facility: [facility] Address: [address] [place] [address] Performed By: #### 1 4196-0, 62265-5 #### [facility] CLIA [id number] [address] OF [facility] Hemoglobin (Bld) [Mass/Vol] 8.9 g/dL Low 11.5-15.5 [facility] Comment on above: Order Comment: Speci men Type: BLOOD SPECIMEN Ordering Facility: [facility] Address: [address] [place] [address] Performed By: #### 1 4196-0, 17293-8 #### [facility] CLIA [id number] [address] OF [facility] MCH (RBC) [Entitic mass] 27.1 pg Normal 26.0-34.0 [facility] Comment on above: Order Comment: Speci men Type: BLOOD SPECIMEN Ordering Facility: [facility] Address: [address] [place] [address] Performed By: #### 1 4196-0, 37520-9 #### [facility] CLIA [id number] [address] MCHC (RBC) [Mass/Vol] 33.2 g/dL Normal 30.5-36.0 [facility] Comment on above: Order Comment: Speci men Type: BLOOD SPECIMEN Ordering Facility: [facility] Address: [address] [place] [address] Performed By: #### 1 4196-0, 95289-4 #### [facility] CLIA [id number] [address] MCV (RBC) [Entitic vol] 81.5 fL Normal 80.0-100.0 [facility] Comment on above: Order Comment: Speci men Type: BLOOD SPECIMEN Ordering Facility: [facility] Address: [address] [place] [address] Performed By: #### 1 4196-0, 18654-6 #### [facility] CLIA [id number] [address] [place] [address] Nucleated RBC (Bld) [#/Vol] 0.04 10*3/uL High <0.01 [facility] Comment on above: Order Comment: Speci men Type: BLOOD SPECIMEN Ordering Facility: [facility] Address: [address] [place] [address] Performed By: #### 1 4196-0, 81220-2 #### [facility] CLIA [id number] [address] Platelet mean volume (Bld) [Entitic vol] 10.0 fL Normal 9.0-12.7 [facility] Comment on above: Order Comment: Speci men Type: BLOOD SPECIMEN Ordering Facility: [facility] Address: [address] [place] [address] Performed By: #### 1 4196-0, 89162-1 #### [facility] CLIA [id number] [address] OF [place] Platelets (Bld) [#/Vol] 172 10*3/uL Normal 150-400 [facility] Comment on above: Order Comment: Speci men Type: BLOOD SPECIMEN Ordering Facility: [facility] Address: [address] [place] [address] Performed By: #### 1 4196-0, 11291-4 #### [facility] CLIA [id number] [address] RBC (Bld) [#/Vol] 3.29 10*6/uL Low 3.90-5.20 [facility] Comment on above: Order Comment: Speci men Type: BLOOD SPECIMEN Ordering Facility: [facility] Address: [address] [place] [address] Performed By: #### 1 4196-0, 02270-5 #### [facility] CLIA [id number] [address] OF [facility] WBC (Bld) [#/Vol] 13.55 10*3/uL High 3.70-11.00 [facility] Comment on above: Order Comment: Abhilashi men Type: BLOOD SPECIMEN Ordering Facility: [facility] Address: [address] [place] [address] Performed By: #### 1 4196-0, 24285-6 #### [facility] CLIA [id number] [address] OF [facility] CNDSon 03-25-2023 CNDS HNO ID: [id number] Author: SHARAN RIVAS MD Service: Hospital Medicine [...] was found to be COVID-19 positive in [place]. Imaging showed intraperitoneal air and pneumatosis intestinalis and patient was transferred to [facility]. Pulmonology was consulted and patient was started [...] CONSULT PROGon 03-25-2023 CONSULT PROG HNO ID: [id number] Author: BRISSA LIMA RPh Service: Pharmacy Author [...] warfarin 5 mg once daily Managed at [place] [facility] 03/19: INR on arrival to [place] was 9. She was given Vitamin K [...] (SPORANOX) 200 mg ORAL BID phenol 1 [place] (CHLORASEPTIC) 1 [place] MUCOUS MEMBRANE (TOPICAL MOUTH AND THROAT) q [...] home med Signature: Brissa Lima lobo Pager/Extension: [phone] [facility] NURSING PROGon 03-25-2023 NURSING PROG HNO ID: [id number] Author: ARMEN FERNANDEZ, RN Service: Nursing Author [...] Renay adkins Type: BLOOD SPECIMEN Ordering Facility: [facility] Address: [address] [place], [place] [address] Result Comment: Halle min K Antagonist (VKA) Therapeutic Range: INR 2 to 3 (Target INR of 2.5) Note: For patients treated with VKA drugs, such as warfarin, the [employer] 2012 Guideline recommends [...] Chest 2012, 141:7S-47S Mitzi RA, et al. [facility] 2017, 70: 252-289 Performed By: #### 1 4196-0, 22985-1 #### [facility] CLIA [id number] [address] STATES OF [facility] PT Coag (PPP) [Time] 20.0 s High 9.7-13.0 [facility] Comment on above: Order Comment: Renay adkins Type: BLOOD SPECIMEN Ordering Facility: [facility] Address: [address] [place] [address] Performed By: #### 1 4196-0, 22349-1 #### [facility] CLIA [id number] 1 [place] [address] [place] Basic metabolic 2000 panelon 03-24-2023 Anion gap [Moles/Vol] 10 mmol/L Normal 9-18 [facility] Comment on above: Order Comment: Speci men Type: BLOOD SPECIMEN Ordering Facility: [facility] Address: [address] [place] [address] Performed By: #### 1 4196-0, 43848-4 #### [facility] CLIA [id number] 1 [place] [address] [place] Calcium [Mass/Vol] 8.8 mg/dL Normal 8.5-10.2 [facility] Comment on above: Order Comment: Speci men Type: BLOOD SPECIMEN Ordering Facility: [facility] Address: [address] [place] [address] Performed By: #### 1 4196-0, 53246-4 #### [facility] CLIA [id number] [address] STATES OF [place] Chloride [Moles/Vol] 98 mmol/L Normal 97-105 [facility] Comment on above: Order Comment: Speci men Type: BLOOD SPECIMEN Ordering Facility: [facility] Address: [address] [place] [address] Performed By: #### 1 4196-0, 09125-0 #### [facility] CLIA [id number] 1 [place] [address] [place] CO2 [Moles/Vol] 24 mmol/L Normal 22-30 [facility] Comment on above: Order Comment: Speci men Type: BLOOD SPECIMEN Ordering Facility: [facility] Address: [address] [place] [address] Performed By: #### 1 4196-0, 53090-4 #### [facility] CLIA [id number] 1 [place] [address] [place] Creatinine [Mass/Vol] 0.89 mg/dL Normal 0.58-0.96 [facility] Comment on above: Order Comment: Speci men Type: BLOOD SPECIMEN Ordering Facility: [facility] Address: [address] [place] [address] Performed By: #### 1 4196-0, 92003-6 #### [facility] CLIA [id number] [address] [place] [address] OF [place] Creatinine and Glomerular filtration rate.predicted panel (S/P/Bld) 68 mL/min/1.73m??? Normal >=60 [facility] Comment on above: Order Comment: Renay lucille Type: BLOOD SPECIMEN Ordering Facility: [facility] Address: [address] [place] [address] Result Comment: Meaghan mated Glomerular Filtration Rate [...] actual GFR. Performed By: #### 1 4196-0, 66651-3 #### [facility] CLIA [id number] [address] [place] [address] [place] Glucose [Mass/Vol] 125 mg/dL High 74-99 [facility] Comment on above: Order Comment: Abhilashbetina lucille Type: BLOOD SPECIMEN Ordering Facility: [facility] Address: [address] [place] [address] Result Comment: The [employer] (ADA) provides guidance for cutoff [...] Standards of Medical Care in Diabetes 2016, [employer]. Diabetes Care. 2016.39(Suppl 1). Performed By: #### 1 4196-0, 54292-2 #### [facility] CLIA [id number] [address] STATES [place] Potassium [Moles/Vol] 4.1 mmol/L Normal 3.7-5.1 [facility] Comment on above: Order Comment: Speci men Type: BLOOD SPECIMEN Ordering Facility: [facility] Address: [address] [place] [address] Performed By: #### 1 4196-0, 63371-5 #### [facility] CLIA [id number] [address] STATES [place] Sodium [Moles/Vol] 132 mmol/L Low 136-144 [facility] Comment on above: Order Comment: Speci men Type: BLOOD SPECIMEN Ordering Facility: [facility] Address: [address] [place] [address] Performed By: #### 1 4196-0, 46532-1 #### [facility] CLIA [id number] [address] Urea nitrogen [Mass/Vol] 32 mg/dL High 7-21 [facility] Comment on above: Order Comment: Speci men Type: BLOOD SPECIMEN Ordering Facility: [facility] Address: [address] [place] [address] Performed By: #### 1 4196-0, 54471-6 #### [facility] CLIA [id number] [address] OF [facility] C diff Tox gens Stl Ql GWEN+p robeon 03-24-2023 C. difficile toxin genes GWEN+probe Ql (Stl) Negative Normal Negative for C. difficile toxin by PCR [facility] Comment on above: Order Comment: Speci men Type: STOOL SPECIMEN Ordering Facility: [facility] Address: [address] [place] [address] Performed By: #### 5 4067-4 #### [facility] CLIA [id number] [address] [place] [address] OF [facility] CBC panel Auto (Bld)on 03-24 Erythrocyte distribution width (RBC) [Ratio] 17.2 % High 11.5-15.0 [facility] Comment on above: Order Comment: Speci men Type: BLOOD SPECIMEN Ordering Facility: [facility] Address: [address] [place] [address] Performed By: #### 1 4196-0, 76233-8 #### [facility] CLIA [id number] [address] STATES [place] Hematocrit (Bld) [Volume fraction] 26.5 % Low 36.0-46.0 [facility] Comment on above: Order Comment: Speci men Type: BLOOD SPECIMEN Ordering Facility: [facility] Address: [address] [place] [address] Performed By: #### 1 4196-0, 00938-0 #### [facility] CLIA [id number] [address] [place] [address] STATES OF [facility] Hemoglobin (Bld) [Mass/Vol] 9.1 g/dL Low 11.5-15.5 [facility] Comment on above: Order Comment: Speci men Type: BLOOD SPECIMEN Ordering Facility: [facility] Address: [address] [place] [address] Performed By: #### 1 4196-0, 95767-7 #### [facility] CLIA [id number] [address] [place] [address] [place] MCH (RBC) [Entitic mass] 27.4 pg Normal 26.0-34.0 [facility] Comment on above: Order Comment: Speci men Type: BLOOD SPECIMEN Ordering Facility: [facility] Address: [address] [place] [address] Performed By: #### 1 4196-0, 65489-5 #### [facility] CLIA [id number] [address] STATES [place] MCHC (RBC) [Mass/Vol] 34.3 g/dL Normal 30.5-36.0 [facility] Comment on above: Order Comment: Speci men Type: BLOOD SPECIMEN Ordering Facility: [facility] Address: [address] [place] [address] Performed By: #### 1 4196-0, 06443-1 #### [facility] CLIA [id number] [address] MCV (RBC) [Entitic vol] 79.8 fL Low 80.0-100.0 [facility] Comment on above: Order Comment: Speci men Type: BLOOD SPECIMEN Ordering Facility: [facility] Address: [address] [place] [address] Performed By: #### 1 4196-0, 46459-8 #### [facility] CLIA [id number] [address] Nucleated RBC (Bld) [#/Vol] 10*3/uL Normal <0.01 [facility] Comment on above: Order Comment: Speci men Type: BLOOD SPECIMEN Ordering Facility: [facility] Address: [address] [place] [address] Performed By: #### 1 4196-0, 63913-0 #### [facility] CLIA [id number] [address] Platelet mean volume (Bld) [Entitic vol] 10.6 fL Normal 9.0-12.7 [facility] Comment on above: Order Comment: Speci men Type: BLOOD SPECIMEN Ordering Facility: [facility] Address: [address] [place] [address] Performed By: #### 1 4196-0, 55314-4 #### [facility] CLIA [id number] [address] Platelets (Bld) [#/Vol] 167 10*3/uL Normal 150-400 [facility] Comment on above: Order Comment: Speci men Type: BLOOD SPECIMEN Ordering Facility: [facility] Address: [address] [place] [address] Performed By: #### 1 4196-0, 57934-3 #### [facility] CLIA [id number] [address] [place] [address] [place] RBC (Bld) [#/Vol] 3.32 10*6/uL Low 3.90-5.20 [facility] Comment on above: Order Comment: Renay adkins Type: BLOOD SPECIMEN Ordering Facility: [facility] Address: [address] [place] [address] Performed By: #### 1 4196-0, 30158-0 #### [facility] CLIA [id number] [address] STATES [place] WBC (Bld) [#/Vol] 12.21 10*3/uL High 3.70-11.00 [facility] Comment on above: Order Comment: Renay adkins Type: BLOOD SPECIMEN Ordering Facility: [facility] Address: [address] [place] [address] Performed By: #### 1 4196-0, 85488-7 #### [facility] CLIA [id number] [address] OF [facility] CONSULT PROGon 03-24-2023 CONSULT PROG HNO ID: [id number] Author: BRISSA LIMA RPh Service: Pharmacy Author [...] warfarin 5 mg once daily Managed at [facility] 03/19: INR on arrival to [place] was 9. She was given Vitamin K [...] patient. Current Laboratory Values Recent Labs 03/24/23 01503/23/23 02303/22/23 03203/21/23 0425 INR 2.0* 2.1* 2.5* 3.9* Recent Labs 03/24/2315703/23/23 0235 03/22/2332403/21/23 0425 HB 9.1* 7.7* 8.1* [...] (SPORANOX) 200 mg ORAL BID phenol 1 [place] (CHLORASEPTIC) 1 [place] MUCOUS MEMBRANE (TOPICAL MOUTH AND THROAT) q [...] home med Signature: Brissa Lima lobo Pager/Extension: [phone] Normal [facility] PT panel Coag (PPP)on 2023 INR Coag (PPP) [Relative time] 2.0 {INR} High 0.9-1.3 [facility] Comment on above: Order Comment: Speci men Type: BLOOD SPECIMEN Ordering Facility: [facility] Address: [address] [place] [address] Result Comment: Halle min K Antagonist (VKA) Therapeutic Range: INR 2 to 3 (Target INR of 2.5) Note: For patients treated with VKA drugs, such as warfarin, the [employer] 2012 Guideline recommends [...] Chest 2012, 141:7S-47S Mitzi RA, et al. [facility] 2017, 70: 252-289 Performed By: #### 1 4196-0, 84382-8 #### [facility] CLIA [id number] [address] PT Coag (PPP) [Time] 19.7 s High 9.7-13.0 [facility] Comment on above: Order Comment: Renay adkins Type: BLOOD SPECIMEN Ordering Facility: [facility] Address: [address] [place] [address] Performed By: #### 1 4196-0, 86481-4 #### [facility] CLIA [id number] [address] CBC W Ordered Manual Differe ntial panel (Bld)on 03-23-2023 ANISOCYTOSIS Present Normal [facility] Comment on above: Order Comment: Renay adkins Type: BLOOD SPECIMEN Ordering Facility: [facility] Address: [address] [place] [address] Performed By: #### 1 4196-0, 83938-7 #### [facility] CLIA [id number] [address] [place] [address] Basophils (Bld) [#/Vol] 0.00 10*3/uL Normal <0.11 [facility] Comment on above: Order Comment: Renay adkins Type: BLOOD SPECIMEN Ordering Facility: [facility] Address: [address] [place] [address] Performed By: #### 1 4196-0, 87080-4 #### [facility] CLIA [id number] [address] Basophils/100 WBC (Bld) 0.0 % Normal [facility] Comment on above: Order Comment: Speci men Type: BLOOD SPECIMEN Ordering Facility: [facility] Address: [address] [place] [address] Performed By: #### 1 4196-0, 58033-6 #### [facility] CLIA [id number] [address] Differential cell count method Nom (Bld) Manual Normal [facility] Comment on above: Order Comment: Speci men Type: BLOOD SPECIMEN Ordering Facility: [facility] Address: [address] [place] [address] Performed By: #### 1 4196-0, 57865-4 #### [facility] CLIA [id number] [address] [place] [address] OF [facility] Eosinophils (Bld) [#/Vol] 0.00 10*3/uL Normal <0.46 [facility] Comment on above: Order Comment: Speci men Type: BLOOD SPECIMEN Ordering Facility: [facility] Address: [address] [place] [address] Performed By: #### 1 4196-0, 18215-5 #### [facility] CLIA [id number] [address] [place] [address] Eosinophils/100 WBC (Bld) 0.0 % Normal [facility] Comment on above: Order Comment: Speci men Type: BLOOD SPECIMEN Ordering Facility: [facility] Address: [address] [place] [address] Performed By: #### 1 4196-0, 11651-6 #### [facility] CLIA [id number] [address] OF [place] Erythrocyte distribution width (RBC) [Ratio] 16.6 % High 11.5-15.0 [facility] Comment on above: Order Comment: Speci men Type: BLOOD SPECIMEN Ordering Facility: [facility] Address: [address] [place] [address] Performed By: #### 1 4196-0, 95272-8 #### [facility] CLIA [id number] [address] OF [facility] Hematocrit (Bld) [Volume fraction] 22.8 % Low 36.0-46.0 [facility] Comment on above: Order Comment: Speci men Type: BLOOD SPECIMEN Ordering Facility: [facility] Address: [address] [place] [address] Performed By: #### 1 4196-0, 99768-1 #### [facility] CLIA [id number] [address] OF [facility] Hemoglobin (Bld) [Mass/Vol] 7.7 g/dL Low 11.5-15.5 [facility] Comment on above: Order Comment: Speci men Type: BLOOD SPECIMEN Ordering Facility: [facility] Address: [address] [place] [address] Performed By: #### 1 4196-0, 16853-9 #### [facility] CLIA [id number] [address] [place] [address] OF [facility] Lymphocytes (Bld) [#/Vol] 0.88 10*3/uL Low 1.00-4.00 [facility] Comment on above: Order Comment: Speci men Type: BLOOD SPECIMEN Ordering Facility: [facility] Address: [address] [place] [address] Performed By: #### 1 4196-0, 82802-3 #### [facility] CLIA [id number] [address] [place] [address] OF [place] Lymphocytes/100 WBC (Bld) 7.0 % Normal [facility] Comment on above: Order Comment: Speci men Type: BLOOD SPECIMEN Ordering Facility: [facility] Address: [address] [place] [address] Performed By: #### 1 4196-0, 23336-6 #### [facility] CLIA [id number] [address] OF [place] MCH (RBC) [Entitic mass] 27.3 pg Normal 26.0-34.0 [facility] Comment on above: Order Comment: Speci men Type: BLOOD SPECIMEN Ordering Facility: [facility] Address: [address] [place] [address] Performed By: #### 1 4196-0, 76377-9 #### [facility] CLIA [id number] [address] MCHC (RBC) [Mass/Vol] 33.8 g/dL Normal 30.5-36.0 [facility] Comment on above: Order Comment: Speci men Type: BLOOD SPECIMEN Ordering Facility: [facility] Address: [address] [place] [address] Performed By: #### 1 4196-0, 03186-4 #### [facility] CLIA [id number] [address] MCV (RBC) [Entitic vol] 80.9 fL Normal 80.0-100.0 [facility] Comment on above: Order Comment: Speci men Type: BLOOD SPECIMEN Ordering Facility: [facility] Address: [address] [place] [address] Performed By: #### 1 4196-0, 10548-3 #### [facility] CLIA [id number] [address] META% 2.0 % Normal [facility] Comment on above: Order Comment: Speci men Type: BLOOD SPECIMEN Ordering Facility: [facility] Address: [address] [place] [address] Performed By: #### 1 4196-0, 48382-6 #### [facility] CLIA [id number] [address] Monocytes (Bld) [#/Vol] 1.00 10*3/uL High <0.87 [facility] Comment on above: Order Comment: Speci men Type: BLOOD SPECIMEN Ordering Facility: [facility] Address: [address] [place] [address] Performed By: #### 1 4196-0, 83861-1 #### [facility] CLIA [id number] [address] Monocytes/100 WBC (Bld) 8.0 % Normal [facility] Comment on above: Order Comment: Speci men Type: BLOOD SPECIMEN Ordering Facility: [facility] Address: [address] [place] [address] Performed By: #### 1 4196-0, 19344-0 #### [facility] CLIA [id number] [address] OF [facility] MYELO% 1.0 % Normal [facility] Comment on above: Order Comment: Speci men Type: BLOOD SPECIMEN Ordering Facility: [facility] Address: [address] [place] [address] Performed By: #### 1 4196-0, 41211-6 #### [facility] CLIA [id number] [address] Neutrophils (Bld) [#/Vol] 10.25 10*3/uL High 1.45-7.50 [facility] Comment on above: Order Comment: Speci men Type: BLOOD SPECIMEN Ordering Facility: [facility] Address: [address] [place] [address] Performed By: #### 1 4196-0, 15371-5 #### [facility] CLIA [id number] [address] Neutrophils/100 WBC (Bld) 82.0 % Normal [facility] Comment on above: Order Comment: Speci men Type: BLOOD SPECIMEN Ordering Facility: [facility] Address: [address] [place] [address] Performed By: #### 1 4196-0, 25692-7 #### [facility] CLIA [id number] [address] OF [place] Nucleated RBC (Bld) [#/Vol] 10*3/uL Normal <0.01 [facility] Comment on above: Order Comment: Speci men Type: BLOOD SPECIMEN Ordering Facility: [facility] Address: [address] [place] [address] Performed By: #### 1 4196-0, 58871-6 #### [facility] CLIA [id number] [address] STATES OF [place] Nucleated RBC/100 WBC (Bld) [Ratio] 0.0 /100 WBC Normal [facility] Comment on above: Order Comment: Speci men Type: BLOOD SPECIMEN Ordering Facility: [facility] Address: [address] [place] [address] Performed By: #### 1 4196-0, 67164-4 #### [facility] CLIA [id number] [address] Ovalocytes LM Ql (Bld) Few Normal [facility] Comment on above: Order Comment: Speci men Type: BLOOD SPECIMEN Ordering Facility: [facility] Address: [address] [place] [address] Performed By: #### 1 4196-0, 60724-7 #### [facility] CLIA [id number] [address] OF [place] Platelet mean volume (Bld) [Entitic vol] 10.5 fL Normal 9.0-12.7 [facility] Comment on above: Order Comment: Speci men Type: BLOOD SPECIMEN Ordering Facility: [facility] Address: [address] [place] [address] Performed By: #### 1 4196-0, 09623-8 #### [facility] CLIA [id number] [address] OF [place] Platelets (Bld) [#/Vol] 157 10*3/uL Normal 150-400 [facility] Comment on above: Order Comment: Speci men Type: BLOOD SPECIMEN Ordering Facility: [facility] Address: [address] [place] [address] Performed By: #### 1 4196-0, 80813-6 #### [facility] CLIA [id number] [address] OF [place] Platelets Estimate (Bld) [#/Vol] Adequate Normal [facility] Comment on above: Order Comment: Speci men Type: BLOOD SPECIMEN Ordering Facility: [facility] Address: [address] [place] [address] Performed By: #### 1 4196-0, 47090-8 #### [facility] CLIA [id number] [address] Polychromasia LM Ql (Bld) Slight Normal [facility] Comment on above: Order Comment: Speci men Type: BLOOD SPECIMEN Ordering Facility: [facility] Address: [address] [place] [address] Performed By: #### 1 4196-0, 42051-9 #### [facility] CLIA [id number] [address] RBC (Bld) [#/Vol] 2.82 10*6/uL Low 3.90-5.20 [facility] Comment on above: Order Comment: Speci men Type: BLOOD SPECIMEN Ordering Facility: [facility] Address: [address] [place] [address] Performed By: #### 1 4196-0, 34751-4 #### [facility] CLIA [id number] [address] RED CELL MORPH Reviewed: see result s of individual morphologies Normal [facility] Comment on above: Order Comment: Speci men Type: BLOOD SPECIMEN Ordering Facility: [facility] Address: [address] [place] [address] Performed By: #### 1 4196-0, 71851-8 #### [facility] CLIA [id number] [address] OF [facility] WBC (Bld) [#/Vol] 12.50 10*3/uL High 3.70-11.00 [facility] Comment on above: Order Comment: Speci men Type: BLOOD SPECIMEN Ordering Facility: [facility] Address: [address] [place] [address] Performed By: #### 1 4196-0, 01028-9 #### [facility] CLIA [id number] [address] [facility] ([facility]) HAYDEE BUSTAMANTE ([id number]) 1945 F Date Time Provider Department 03/23/23 RACHELLE LEONARD During your visit today, we recorded the following information about you: Rachelle Leonard, [facility] 03/23/2023 5:17 PM Signed Please schedule patient [...] (FLONASE) 50 mcg/actuation nasal spray Use 1 [place] in each nostril once daily. - pantoprazole DR (PROTONIX) 40 mg tablet Take 1 tablet by mouth once daily. - albuterol HFA (PROAIR HFA) 90 mcg/actuation inhaler Inhale 2 Puffs as instructed every 4 hours as needed. 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 Problem List As Of Date 03/23/2023 [...] [facility]23 CONSULT HNO ID: [id number] Author: CHARLOTTE LAZO MD Service: Cardiovascular Medicine [...] positive rheumatoid factor (HCC) 03/07/2015 Dr. Hurley ([facility]) Unspecified hemorrhoids without mention of complication [...] SPINE FUSN,POST INTERBODY 2011 Dr. Armando at [facility]. Diskectomy and laminectomy PAST SURGICAL [...] nasal spray No Yes Sig: Use 1 [place] in each nostril once daily. gabapentin (NEURONTIN) [...] CONSULT PROGon 03-23-2023 CONSULT PROG HNO ID: [id number] Author: DANY BINGHAM RPh Service: Pharmacy Author Type: Pharmacist Type: Consult Progress Note Filed: 03/23/2023 17:00 Note Text: PHARMACY ANTICOAGULATION CONSULT PATIENT NAME: Haydee Bustamante DATE of SERVICE: 03/23/2023 TIME of SERVICE: 4:06 PM Indication for Anticoagulation: DVT Goal INR: 2.0 to 3.0 Expected Duration of Therapy: Indefinite Assessment: New Start: No Home Dose: Warfarin 5mg once daily Managed at [place] [facility] 03/19: INR on arrival to [place] was 9. She was given Vitamin K [...] (SPORANOX) 200 mg ORAL BID phenol 1 [place] (CHLORASEPTIC) 1 [place] MUCOUS MEMBRANE (TOPICAL MOUTH AND THROAT) q [...] patient received education: No Signature: Dany Bingham [facility] Pager/Extension: [phone] Normal [facility] CONSULT PROG HNO ID: [id number] Author: RACHELLE LEONARD APRN.AGENT BASED MODELER Service: Infectious Disease Author Type: Nurse Practitioner Type: Consult Progress Note Filed: 03/23/2023 17:10 Note Text: PROGRESS NOTE INFECTIOUS DISEASE BRIEF SUMMARY: 77-year-old female history of rheumatoid arthritis on Humira and methotrexate, 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 COVID-positive -Positive at [place], negative at [facility] 4. RA on Humira and methotrexate 5. [...] (SPORANOX) 200 mg ORAL BID phenol 1 [place] (CHLORASEPTIC) 1 [place] MUCOUS MEMBRANE (TOPICAL MOUTH AND THROAT) q [...] NURSING PROGon 03-23-2023 NURSING PROG HNO ID: [id number] Author: JOHANNA CAPPS RN Service: ? Author Type: Registered Nurse Type: Nursing Progress Note Filed: 03/23/2023 18:59 Note Text: 1700: Pt refused Warfarin dose due to concerns for INR levels. Sound Silver notified; plan of care ongoing. Normal [facility] PATHOLOGIST INTERPRETATION C BC/DIFFon 03-23-2023 Scarf Gluer review Donte (Unsp spec) [Interp] Reviewed by Jamarcus Blue MD [facility] Comment on above: Order Comment: Speci men Type: BLOOD SPECIMEN Ordering Facility: [facility] Address: [address] [place] [address] Performed By: #### 1 4196-0, 82125-5 #### [facility] CLIA [id number] [address] STAFF REVIEW, CBCDIF Normal [facility] Comment on above: Order Comment: Renay adkins Type: BLOOD SPECIMEN Ordering Facility: [facility] Address: [address] [place] [address] Result Comment: Norm ocytic anemia with slight polychromasia and absolute neutrophilic leukocytosis with left shift. Performed By: #### 1 4196-0, 22204-2 #### [facility] CLIA [id number] [address] PT panel Coag (PPP)on 2023 INR Coag (PPP) [Relative time] 2.1 {INR} High 0.9-1.3 [facility] Comment on above: Order Comment: Renay adkins Type: BLOOD SPECIMEN Ordering Facility: [facility] Address: [address] [place] [address] Result Comment: Halle min K Antagonist (VKA) Therapeutic Range: INR 2 to 3 (Target INR of 2.5) Note: For patients treated with VKA drugs, such as warfarin, the [employer] 2012 Guideline recommends [...] 70: 252-289 Performed By: #### 1 4196-0, 75261-6 #### [facility] CLIA [id number] [address] PT Coag (PPP) [Time] 21.0 s High 9.7-13.0 [facility] Comment on above: Order Comment: Speci men Type: BLOOD SPECIMEN Ordering Facility: [facility] Address: [facility] [place] [id number] Performed By: #### 1 4196-0, 04221-0 #### [facility] CLIA [id number] [address] [place] [id number] [facility] THERAPY NTon 03-23-2023 THERAPY NT HNO ID: [id number] Author: UMANG EASLEY, PT Service: Physical Therapy Author Type: Physical Therapist Type: Therapy (PT/OT/Speech/Resp) Filed: 03/23/2023 15:14 Note Text: Physical Therapy Evaluation Summary SERVICE DATE: 03/23/2023 SERVICE TIME: 1340 to 1355 ROOM: [place] [address] PT 6 Clicks Score: 22 DISCHARGE RECOMMENDATIONS Home ASSESSMENT Response to Therapy Interventions: Good Participation in Activities PRECAUTIONS CURRENT HOSPITAL COURSE presented with hemoptysis, found to be COVID positive at [place]. Imaging showed intraperitoneal air and pneumatosis intestinalia, [...] Skilled Need TREATMENT INTERVENTIONS Evaluation $ Evaluation-Low (90932) Billed Units: 1 unit Skilled Treatment Time [...] [facility] THERAPY NT HNO ID: [id number] Author: LORI SHORT OTR/L Service: Occupational Therapy Author Type: Occupational Therapist Type: Therapy (PT/OT/Speech/Resp) Filed: 03/23/2023 11:43 Note Text: Occupational Therapy Evaluation Summary SERVICE DATE: 03/23/2023 SERVICE TIME: 858 ROOM: [place] [address] OT 6 Clicks Score: 22 DISCHARGE RECOMMENDATIONS [...] hemoptysis, found to be COVID positive at [place]. Imaging showed intraperitoneal air and pneumatosis intestinalia, [...] (ADL) TREATMENT INTERVENTIONS Evaluation, Self Intermediate Management (18695) Timed Code Treatment (minutes): 8 Skilled Treatment Time (minutes): 23 $ Evaluation - Low (70024) Billed Units: 1 unit Self Intermediate Management (02902) Treatment Minutes: 8 $ Self Intermediate Management (62547) Billed Units: 1 unit TRAINING AND EDUCATION [...] ALLIED HEALTHon 03-22-2023 ALLIED HEALTH HNO ID: [id number] Author: TIMUR HERNANDEZ RT(R) Service: Radiology Author Type: Nba Player Type: Allied Health Filed: 03/22/2023 09:43 Note [...] PATIENT PRESENTS WITH AN IMPLANTABLE OR ATTACHED HOME CONNECT LPN: No ALLERGIES: Reviewed and unchanged CONTRAST ALLERGY: [...] PERIPHERAL IV DATA: Inpatient - refer to [facility] documentation RADIOLOGY DEPARTMENT: CT; Exam(s) Completed: Abdomen/Pelvis SIGNATURE: RT Toney(R) PATIENT NAME: Haydee Bustamante DATE: March 22, 2023 TIME: 9:43 AM Normal [facility] CBC panel Auto (Bld)on 03-22 Erythrocyte distribution width (RBC) [Ratio] 16.0 % High 11.5-15.0 [facility] Comment on above: Order Comment: Speci men Type: BLOOD SPECIMEN Ordering Facility: [facility] Address: [address] [place] [address] Performed By: #### 1 4196-0, 66896-7 #### [facility] CLIA [id number] [address] Hematocrit (Bld) [Volume fraction] 23.1 % Low 36.0-46.0 [facility] Comment on above: Order Comment: Speci men Type: BLOOD SPECIMEN Ordering Facility: [facility] Address: [address] [place] [address] Performed By: #### 1 4196-0, 06651-9 #### [facility] CLIA [id number] [address] Hemoglobin (Bld) [Mass/Vol] 8.1 g/dL Low 11.5-15.5 [facility] Comment on above: Order Comment: Speci men Type: BLOOD SPECIMEN Ordering Facility: [facility] Address: [address] [place] [address] Performed By: #### 1 4196-0, 36590-3 #### [facility] CLIA [id number] [address] [place] [address] MCH (RBC) [Entitic mass] 27.4 pg Normal 26.0-34.0 [facility] Comment on above: Order Comment: Speci men Type: BLOOD SPECIMEN Ordering Facility: [facility] Address: [address] [place] [address] Performed By: #### 1 4196-0, 67007-5 #### [facility] CLIA [id number] [address] [place] [address] OF [facility] MCHC (RBC) [Mass/Vol] 35.1 g/dL Normal 30.5-36.0 [facility] Comment on above: Order Comment: Speci men Type: BLOOD SPECIMEN Ordering Facility: [facility] Address: [address] [place] [address] Performed By: #### 1 4196-0, 31796-5 #### [facility] CLIA [id number] [address] OF [facility] MCV (RBC) [Entitic vol] 78.0 fL Low 80.0-100.0 [facility] Comment on above: Order Comment: Speci men Type: BLOOD SPECIMEN Ordering Facility: [facility] Address: [address] [place] [address] Performed By: #### 1 4196-0, 89975-9 #### [facility] CLIA [id number] [address] [place] Nucleated RBC (Bld) [#/Vol] 10*3/uL Normal <0.01 [facility] Comment on above: Order Comment: Speci men Type: BLOOD SPECIMEN Ordering Facility: [facility] Address: [address] [place] [address] Performed By: #### 1 4196-0, 00631-2 #### [facility] CLIA [id number] [address] [place] Platelet mean volume (Bld) [Entitic vol] 10.3 fL Normal 9.0-12.7 [facility] Comment on above: Order Comment: Speci men Type: BLOOD SPECIMEN Ordering Facility: [facility] Address: [address] [place] [address] Performed By: #### 1 4196-0, 36122-1 #### [facility] CLIA [id number] [address] [place] Platelets (Bld) [#/Vol] 148 10*3/uL Low 150-400 [facility] Comment on above: Order Comment: Speci men Type: BLOOD SPECIMEN Ordering Facility: [facility] Address: [address] [place] [address] Performed By: #### 1 4196-0, 38180-9 #### [facility] CLIA [id number] 1 [place] [address] [place] RBC (Bld) [#/Vol] 2.96 10*6/uL Low 3.90-5.20 [facility] Comment on above: Order Comment: Speci men Type: BLOOD SPECIMEN Ordering Facility: [facility] Address: [address] [place] [address] Performed By: #### 1 4196-0, 18488-2 #### [facility] CLIA [id number] 1 [place] [address] [place] WBC (Bld) [#/Vol] 10.53 10*3/uL Normal 3.70-11.00 [facility] Comment on above: Order Comment: Speci men Type: BLOOD SPECIMEN Ordering Facility: [facility] Address: [address] [place] [address] [place] [address] Performed By: #### 1 4196-0, 67868-9 #### [facility] CLIA [id number] 1 [place] [id number] [place] CONSULT PROGon 03-22-2023 CONSULT PROG HNO ID: [id number] Author: MAGAN VILLAFUERTE DO Service: Pulmonary Disease [...] enzymes), -GERD, -HTN, -h/o disseminated Histoplasmosis in 1208-0239 managed on itraconazole, ne H an M [...] inside the abdomen. INR on arrival to [place] was 9. She given Vitamin K and transferred here. 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 No sustained Rx with Amiodarone, Nitrofurantoin, cancer chemotherapy. Smoking h/o: 31-zcmz-efxr former smoker, quit in 1989. Late was [...] positive rheumatoid factor (HCC) 03/07/2015 Dr. Hurley ([facility]) Unspecified hemorrhoids without mention of complication [...] SPINE FUSN,POST INTERBODY 2011 Dr. Armando at [facility]. Diskectomy and laminectomy PAST SURGICAL [...] DATE OF EXAM: Mar 22 2023 9:46AM [facility] 0530 - CT ABD/PEL W IVCON [...] on 3:17. Stable dating back to 04/04/2018. Coupon Clerk (topogram) images: No significant additional findings. IMPRESSION: [...] be communicated with the ordering provider via [employer] staff message or phone message by [employer] within 2 business days of report finalization. ========= Algorithms for management of incidental imaging findings can be found on the [facility] Intranet Sharepoint site at: [email or web address]/document [email or web address]/[email or web address]/Managing %20Incidental%20Findi ngs%20at%20Imaging/Forms/Al lItems.aspx Manufacturing Worker: KRYSTAL Transcribe Date/Time: Mar 22 2023 10:59A [...] 03-22-2023 Bilirubin [Mass/Vol] 0.8 mg/dL Normal 0.2-1.3 [facility] Comment on above: Order Comment: Speci men Type: BLOOD SPECIMENOrdering Facility: [facility] Address: [address] [place] [address] Performed By: #### 2 4325-3, 66207-3 ####[facility] [id number] [address] [place] Comprehensive metabolic 2000 panelon 03-22-2023 Albumin [Mass/Vol] 2.7 g/dL Low 3.9-4.9 [facility] Comment on above: Order Comment: Speci men Type: BLOOD SPECIMENOrdering Facility: [facility] Address: [address] [place] [address] Performed By: #### 2 4325-3, 61984-0 ####[facility]ORYCLIA [id number] [place] [address] [place] ALP [Catalytic activity/Vol] 201 U/L High 34-123 [facility] Comment on above: Order Comment: Speci men Type: BLOOD SPECIMENOrdering Facility: [facility] Address: [address] [place] [address] Performed By: #### 2 4325-3, 37287-8 ####[facility]CLIA [id number] [place] [address] [place] ALT With P-5'-P [Catalytic activity/Vol] 54 U/L High 7-38 [facility] Comment on above: Order Comment: Speci men Type: BLOOD SPECIMENOrdering Facility: [facility] Address: [address] [place] [address] Performed By: #### 2 4325-3, 11047-4 ####[facility]CLIA [id number] [address] STATES OF [facility] Anion gap [Moles/Vol] 8 mmol/L Low 9-18 [facility] Comment on above: Order Comment: Speci men Type: BLOOD SPECIMENOrdering Facility: [facility] Address: [address] [place] [address] Performed By: #### 2 4325-3, 44808-6 ####[facility]CLIA [id number] [address] STATES [facility] AST With P-5'-P [Catalytic activity/Vol] 33 U/L Normal 13-35 [facility] Comment on above: Order Comment: Speci men Type: BLOOD SPECIMENOrdering Facility: [facility] Address: [address] [place] [address] Performed By: #### 2 4325-3, 76899-6 ####[facility]CLIA [id number] [address] [place] Calcium [Mass/Vol] 8.8 mg/dL Normal 8.5-10.2 [facility] Comment on above: Order Comment: Speci men Type: BLOOD SPECIMENOrdering Facility: [facility] Address: [address] [place] [address] Performed By: #### 2 4325-3, 85469-2 ####[facility]CLIA [id number] [address] [place] Chloride [Moles/Vol] 100 mmol/L Normal 97-105 [facility] Comment on above: Order Comment: Speci men Type: BLOOD SPECIMENOrdering Facility: [facility] Address: [address] [place] [address] Performed By: #### 2 4325-3, 12518-9 ####[facility]ORYCLIA [id number] [place] [id number] [place] CO2 [Moles/Vol] 26 mmol/L Normal 22-30 [facility] Comment on above: Order Comment: Speci men Type: BLOOD SPECIMENOrdering Facility: [facility] Address: [address] [place] [address] Performed By: #### 2 4325-3, 54293-3 ####[facility]ORYCLIA [id number] [address] Creatinine [Mass/Vol] 0.83 mg/dL Normal 0.58-0.96 [facility] Comment on above: Order Comment: Speci men Type: BLOOD SPECIMENOrdering Facility: [facility] Address: [address] [place] [address] Performed By: #### 2 4325-3, 44400-9 ####[facility]ORYCLIA [id number] [address] Creatinine and Glomerular filtration rate.predicted panel (S/P/Bld) 74 mL/min/1.73m??? Normal >=60 [facility] Comment on above: Order Comment: Speci men Type: BLOOD SPECIMENOrdering Facility: [facility] Address: [address] [place] [address] Result Comment: Meaghan mated Glomerular Filtration Rate [...] actual GFR. Performed By: #### 2 4325-3, 09264-9 ####[facility] [id number] [place] [address] [place] Glucose [Mass/Vol] 158 mg/dL High 74-99 [facility] Comment on above: Order Comment: Renay adkins Type: BLOOD SPECIMENOrdering Facility: [facility] Address: [address] [place] [address] Result Comment: The [place] [employer] (ADA) provides guidance for cutoff [...] Standards of Medical Care in Diabetes 2016, [place] [employer]. Diabetes Care. 2016.39(Suppl 1). Performed By: #### 2 4325-3, 26286-6 ####[facility]ORYCLIA [id number] [place] [address] [place] Potassium [Moles/Vol] 4.0 mmol/L Normal 3.7-5.1 [facility] Comment on above: Order Comment: Renay adkins Type: BLOOD SPECIMENOrdering Facility: [facility] Address: [address] [place] [address] Performed By: #### 2 4325-3, 31703-2 ####[facility]ATORYCLIA [id number] [place] [address] [place] Protein [Mass/Vol] 4.9 g/dL Low 6.3-8.0 [facility] Comment on above: Order Comment: Renay adkins Type: BLOOD SPECIMENOrdering Facility: [facility] Address: [address] [place] [address] Performed By: #### 2 4325-3, 66529-6 ####[facility]ATORYCLIA [id number] [place] [address] [place] Sodium [Moles/Vol] 134 mmol/L Low 136-144 [facility] Comment on above: Order Comment: Speci men Type: BLOOD SPECIMENOrdering Facility: [facility] Address: [address] [place] [address] Performed By: #### 2 4325-3, 57802-7 ####[facility]ORYCLIA [id number] [place] [address] [place] Urea nitrogen [Mass/Vol] 24 mg/dL High 7-21 [facility] Comment on above: Order Comment: Speci men Type: BLOOD SPECIMENOrdering Facility: [facility] Address: [address] [place] [address] Performed By: #### 2 4325-3, 44581-5 ####[facility]ORYCLIA [id number] [place] [address] [place] ECHOon 03-22-2023 Echocardiography Echocardiography Rep ort: Transthoracic Echo [facility] Date of service: 03/22/2023 12:34:35 PM [facility] Ordering physician: AMERICA MAYER Indication: Re-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 heart disease with change in clinical status Technologist: Jamarcus Fraser [facility] Interpreting physician: Jb Richardson MD PATIENT: [...] 03-22 Haptoglobin [Mass/Vol] 95 mg/dL Normal 31-238 [facility] Comment on above: Order Comment: Speci men Type: BLOOD SPECIMEN Ordering Facility: [facility] Address: [address] [facility] [place] [address] Performed By: #### 1 4196-0, 14776-2 #### [facility] CLIA [id number] [address] [place] Hepatic function 2000 panelo n 03-22-2023 Albumin [Mass/Vol] 2.6 g/dL Low 3.9-4.9 [facility] Comment on above: Order Comment: Speci men Type: BLOOD SPECIMENOrdering Facility: [facility] Address: [address] [place] [address] Performed By: #### 2 4325-3, 10996-5 ####[facility]ORYCLIA [id number] [address] [place] ALP [Catalytic activity/Vol] 200 U/L High 34-123 [facility] Comment on above: Order Comment: Speci men Type: BLOOD SPECIMENOrdering Facility: [facility] Address: [address] [place] [address] Performed By: #### 2 4325-3, 52080-3 ####[facility]ORYCLIA [id number] [address] [place] ALT With P-5'-P [Catalytic activity/Vol] 53 U/L High 7-38 [facility] Comment on above: Order Comment: Speci men Type: BLOOD SPECIMENOrdering Facility: [facility] Address: [address] [place] [address] Performed By: #### 2 4325-3, 79865-1 ####[facility]ORYCLIA [id number] [address] [place] AST With P-5'-P [Catalytic activity/Vol] 38 U/L High 13-35 [facility] Comment on above: Order Comment: Speci men Type: BLOOD SPECIMENOrdering Facility: [facility] Address: [address] [place] [address] Performed By: #### 2 4325-3, 45515-3 ####[facility]ORYCLIA [id number] [address] [place] Bilirubin.conjugated [Mass/Vol] 0.3 mg/dL High <0.2 [facility] Comment on above: Order Comment: Speci men Type: BLOOD SPECIMENOrdering Facility: [facility] Address: [address] [place] [address] Performed By: #### 2 4325-3, 02911-6 ####[facility]ORYCLIA [id number] [place] [address] [place] Protein [Mass/Vol] 5.1 g/dL Low 6.3-8.0 [facility] Comment on above: Order Comment: Speci men Type: BLOOD SPECIMENOrdering Facility: [facility] Address: [address] [place] [address] Performed By: #### 2 4325-3, 25744-9 ####[facility]ORYCLIA [id number] [address] [place] LDH SerPl-cCncon 03-22-2023 LDH [Catalytic activity/Vol] 300 U/L High 135-214 [facility] Comment on above: Order Comment: Speci men Type: BLOOD SPECIMEN Ordering Facility: [facility] Address: [address] [place] [address] Performed By: #### 1 4196-0, 41289-0 #### [facility] CLIA [id number] [address] [place] [address] [place] Lactate (Bld) [Moles/Vol]on 03-22-2023 Lactate [Moles/Vol] 1.7 mmol/L Normal 0.5-2.2 [facility] Comment on above: Order Comment: Speci men Type: BLOOD SPECIMEN Ordering Facility: [facility] Address: [address] [place] [address] Performed By: #### 1 4196-0, 02074-4 #### [facility] CLIA [id number] [address] [place] [address] [place] NURSING PROGon 03-22-2023 NURSING PROG HNO ID: [id number] Author: OJ PEÑA RN Service: Nursing Author Type: Registered Nurse Type: Nursing Progress Note Filed: 03/22/2023 09:58 Note Text: Pt to remain in isolation d/t positive covid test at [place] and pt being immunocompromised. Orders received from Dr Geno Hart. Normal [facility] PT panel Coag (PPP)on 2023 INR Coag (PPP) [Relative time] 2.5 {INR} High 0.9-1.3 [facility] Comment on above: Order Comment: Renay adkins Type: BLOOD SPECIMENOrdering Facility: [facility] [facility] Address: [address] [place] [address] Result Comment: Halle min K Antagonist (VKA) Therapeutic Range: INR 2 to 3 (Target INR of 2.5) Note: For patients treated with VKA drugs, such as warfarin, the [employer] 2012 Guideline recommends [...] Chest 2012, 141:7S-47S Mitzi RA et al. [facility] 2017, 70: 252-289 Performed By: #### 3 4528-0 ####[facility]ORY[facility]IA [id number] [address] STATES OF [facility] PT Coag (PPP) [Time] 24.6 s High 9.7-13.0 [facility] Comment on above: Order Comment: Renay adkins Type: BLOOD SPECIMENOrdering Facility: [facility] Address: [address] [place] [address] Performed By: #### 3 4528-0 ####[facility]ORYCLIA [id number] [address] STATES [facility] Retics #on 03-22-2023 Reticulocytes (Bld) [#/Vol] 0.68399 10*3/uL Normal 0.018-0.10 0 [facility] Comment on above: Order Comment: Speci men Type: BLOOD SPECIMEN Ordering Facility: [facility] Address: [address] [place] [address] Performed By: #### 1 4196-0, 11193-2 #### [facility] CLIA [id number] [address] Reticulocytes (Bld) [#/Vol]o n 03-22-2023 Reticulocytes/100 RBC (Bld) 2.9 % High 0.4-2.0 [facility] Comment on above: Order Comment: Speci men Type: BLOOD SPECIMEN Ordering Facility: [facility] Address: [address] [place] [address] Performed By: #### 1 4196-0, 40696-3 #### [facility] CLIA [id number] [address] [place] [address] OF [facility] CBC panel Auto (Bld)on 03-21 Erythrocyte distribution width (RBC) [Ratio] 16.2 % High 11.5-15.0 [facility] Comment on above: Order Comment: Speci men Type: BLOOD SPECIMEN Ordering Facility: [facility] Address: [address] [place] [address] Performed By: #### 1 4196-0, 14039-0 #### [facility] CLIA [id number] [address] [place] [address] STATES OF [facility] Hematocrit (Bld) [Volume fraction] 25.9 % Low 36.0-46.0 [facility] Comment on above: Order Comment: Speci men Type: BLOOD SPECIMEN Ordering Facility: [facility] Address: [address] [place] [address] Performed By: #### 1 4196-0, 21318-5 #### [facility] CLIA [id number] [address] OF [facility] Hemoglobin (Bld) [Mass/Vol] 8.6 g/dL Low 11.5-15.5 [facility] Comment on above: Order Comment: Speci men Type: BLOOD SPECIMEN Ordering Facility: [facility] Address: [address] [place] [address] Performed By: #### 1 4196-0, 84646-5 #### [facility] CLIA [id number] [address] [place] [address] MCH (RBC) [Entitic mass] 26.8 pg Normal 26.0-34.0 [facility] Comment on above: Order Comment: Speci men Type: BLOOD SPECIMEN [facility]ing Facility: [facility] Address: [address] [place] [address] Performed By: #### 1 4196-0, 69598-7 #### [facility] CLIA [id number] [address] [place] [address] MCHC (RBC) [Mass/Vol] 33.2 g/dL Normal 30.5-36.0 [facility] Comment on above: Order Comment: Speci men Type: BLOOD SPECIMEN Ordering Facility: [facility] Address: [address] [place] [address] Performed By: #### 1 4196-0, 95528-8 #### [facility] CLIA [id number] [address] [place] [address] MCV (RBC) [Entitic vol] 80.7 fL Normal 80.0-100.0 [facility] Comment on above: Order Comment: Speci men Type: BLOOD SPECIMEN Ordering Facility: [facility] Address: [address] [place] [address] Performed By: #### 1 4196-0, 25055-9 #### [facility] CLIA [id number] [address] Nucleated RBC (Bld) [#/Vol] 10*3/uL Normal <0.01 [facility] Comment on above: Order Comment: Speci men Type: BLOOD SPECIMEN Ordering Facility: [facility] Address: [address] [place] [address] Performed By: #### 1 4196-0, 37140-3 #### [facility] CLIA [id number] [address] STATES OF [place] Platelet mean volume (Bld) [Entitic vol] 10.6 fL Normal 9.0-12.7 [facility] Comment on above: Order Comment: Speci men Type: BLOOD SPECIMEN Ordering Facility: [facility] Address: [address] [place] [address] Performed By: #### 1 4196-0, 89944-5 #### [facility] CLIA [id number] [address] STATES [place] Platelets (Bld) [#/Vol] 148 10*3/uL Low 150-400 [facility] Comment on above: Order Comment: Speci men Type: BLOOD SPECIMEN Ordering Facility: [facility] Address: [address] [place] [address] Performed By: #### 1 4196-0, 72465-0 #### [facility] CLIA [id number] [address] STATES [place] RBC (Bld) [#/Vol] 3.21 10*6/uL Low 3.90-5.20 [facility] Comment on above: Order Comment: Speci men Type: BLOOD SPECIMEN [facility]ing Facility: [facility] Address: [address] [place] [address] Performed By: #### 1 4196-0, 16241-2 #### [facility] CLIA [id number] [address] [place] WBC (Bld) [#/Vol] 6.94 10*3/uL Normal 3.70-11.00 [facility] Comment on above: Order Comment: Speci men Type: BLOOD SPECIMEN Ordering Facility: [facility] Address: [address] [place] [address] Performed By: #### 1 4196-0, 13974-0 #### [facility] CLIA [id number] [address] CONSULTon 03-21-2023 CONSULT HNO ID: [id number] Author: SHERIN SHEA DO Service: Hospital Medicine Author Type: Physician Type: Consults Filed: 03/21/2023 17:37 Note Text: DEPARTMENT OF HOSPITAL MEDICINE INITIAL CONSULT SERVICE DATE: 03/21/2023 SERVICE TIME: 10:03 AM Primary Care Physician: Claudine Durán MD NIGHT AND WEEKEND COVERAGE: [place] COVERAGE: After 7pm, please call cross cover pager #[phone] REASON FOR CONSULT: possibly assume care REQUESTING PHYSICIAN: Alan Subjective CHIEF COMPLAINT: hemoptysis HPI: This is a 77 year old female with PMH RA on humira, HTN, disseminated histo, 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 Reportedly found to be COVID+ in [place] and intraperitoneal air and pneumatosis intestinalis noted [...] positive rheumatoid factor (HCC) 03/07/2015 Dr. Hurley ([facility]) Unspecified hemorrhoids without mention of complication [...] SPINE FUSN,POST INTERBODY 2012 Dr. Armando at [facility]. Diskectomy and laminectomy PAST SURGICAL [...] 4 H PRN remdesivir in NaCl 0.9% Vial-Mate/ADD-Meridian 100 mg 275 mL 100 mg INTRAVENOUS [...] (SPORANOX) 200 mg ORAL BID phenol 1 [place] (CHLORASEPTIC) 1 [place] MUCOUS MEMBRANE (TOPICAL MOUTH AND THROAT) q 2 H PRN . ALLERGIES Allerg (more content not included)... 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 INR on arrival to [place] was 9. She given Vitamin K and transferred here. 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 No sustained Rx with Amiodarone, Nitrofurantoin, cancer chemotherapy. Smoking h/o: 61-zxlt-nmsa former smoker, quit in 1989. Late was [...] [facility]) 03/07/2015 Dr. Hurley ([facility]) Unspecified hemorrhoids without mention of complication [...] SPINE FUSN,POST INTERBODY 2011 Dr. Armando at [facility]. Diskectomy and laminectomy PAST SURGICAL HISTORY OF 03/07/1999 removal facial lesion PAST SURGICAL HISTORY OF 08/17/2014 excision soft tissue mass left index finger TONSILLECTOMY PRIMARY/ (more content not included)... Normal [facility] Comprehensive metabolic 2000 panelon 03-21-2023 Albumin [Mass/Vol] 2.8 g/dL Low 3.9-4.9 [facility] Comment on above: Order Comment: Specbetina adkins Type: BLOOD SPECIMEN [facility]ing Facility: [facility] Address: [address] [place] [address] Performed By: #### 2 4323-8, 31508-4 #### [facility] CLIA [id number] [address] [place] [address] [place] [facility] ALP [Catalytic activity/Vol] 215 U/L High 34-123 [facility] Comment on above: Order Comment: Speci men Type: BLOOD SPECIMEN [facility]ing Facility: [facility] Address: [address] [place] [address] Performed By: #### 2 4323-8, 04320-0 #### [facility] CLIA [id number] [address] OF [place] ALT With P-5'-P [Catalytic activity/Vol] 62 U/L High 7-38 [facility] Comment on above: Order Comment: Speci men Type: BLOOD SPECIMEN [facility]ing Facility: [facility] Address: [address] [place] [address] Performed By: #### 2 4323-8, 73822-8 #### [facility] CLIA [id number] [address] STATES OF [facility] Anion gap [Moles/Vol] 7 mmol/L Low 9-18 [facility] Comment on above: Order Comment: Speci men Type: BLOOD SPECIMEN [facility]ing Facility: [facility] Address: [address] [place] [address] Performed By: #### 2 4323-8, 59235-5 #### [facility] CLIA [id number] [address] AST With P-5'-P [Catalytic activity/Vol] 42 U/L High 13-35 [facility] Comment on above: Order Comment: Speci men Type: BLOOD SPECIMEN [facility]ing Facility: [facility] Address: [address] [place] [address] Performed By: #### 2 4323-8, 61744-4 #### [facility] CLIA [id number] [address] [place] Bilirubin [Mass/Vol] 0.6 mg/dL Normal 0.2-1.3 [facility] Comment on above: Order Comment: Speci men Type: BLOOD SPECIMEN [facility]ing Facility: [facility] Address: [address] [place] [address] Performed By: #### 2 4323-8, 33397-0 #### [facility] CLIA [id number] [address] OF [place] Calcium [Mass/Vol] 8.5 mg/dL Normal 8.5-10.2 [facility] Comment on above: Order Comment: Speci men Type: BLOOD SPECIMEN [facility]ing Facility: [facility] Address: [address] [place] [address] Performed By: #### 2 4323-8, 98394-9 #### [facility] CLIA [id number] [address] [place] [address] [place] Chloride [Moles/Vol] 97 mmol/L Normal 97-105 [facility] Comment on above: Order Comment: Speci men Type: BLOOD SPECIMEN [facility]ing Facility: [facility] Address: [address] [place] [address] Performed By: #### 2 4323-8, 57866-7 #### [facility] CLIA [id number] [address] [place] CO2 [Moles/Vol] 26 mmol/L Normal 22-30 [facility] Comment on above: Order Comment: Speci men Type: BLOOD SPECIMEN [facility]ing Facility: [facility] Address: [address] [place] [address] Performed By: #### 2 4323-8, 95740-2 #### [facility] CLIA [id number] [address] [place] Creatinine [Mass/Vol] 0.93 mg/dL Normal 0.58-0.96 [facility] Comment on above: Order Comment: Speci men Type: BLOOD SPECIMEN [facility]ing Facility: [facility] Address: [address] [place] [address] Performed By: #### 2 4323-8, 60905-5 #### [facility] CLIA [id number] [address] OF [place] Creatinine and Glomerular filtration rate.predicted panel (S/P/Bld) 64 mL/min/1.73m??? Normal >=60 [facility] Comment on above: Order Comment: Speci men Type: BLOOD SPECIMEN [facility]ing Facility: [facility] Address: [address] [place] [address] Result Comment: Meaghan mated Glomerular Filtration Rate [...] actual GFR. Performed By: #### 2 4323-8, 64495-1 #### [facility] CLIA [id number] [address] [place] [address] [place] Glucose [Mass/Vol] 162 mg/dL High 74-99 [facility] Comment on above: Order Comment: Renay adkins Type: BLOOD SPECIMEN [facility] Facility: [facility] Address: [address] [place] [address] Result Comment: The [employer] (ADA) provides guidance for cutoff [...] Standards of Medical Care in Diabetes 2016, [employer]. Diabetes Care. 2016.39(Suppl 1). Performed By: #### 2 4323-8, 11251-6 #### [facility] CLIA [id number] [address] [place] [address] [place] Potassium [Moles/Vol] 4.5 mmol/L Normal 3.7-5.1 [facility] Comment on above: Order Comment: Renay adkins Type: BLOOD SPECIMEN [facility]ing Facility: [facility] Address: [address] [place] [address] Performed By: #### 2 4323-8, 69326-7 #### [facility] CLIA [id number] [address] [place] [id number] [place] Protein [Mass/Vol] 5.0 g/dL Low 6.3-8.0 [facility] Comment on above: Order Comment: Speci men Type: BLOOD SPECIMEN [facility]ing Facility: [facility] Address: [address] [place] [address] Performed By: #### 2 4323-8, 58944-6 #### [facility] CLIA [id number] [address] STATES OF [facility] Sodium [Moles/Vol] 130 mmol/L Low 136-144 [facility] Comment on above: Order Comment: Speci men Type: BLOOD SPECIMEN [facility]ing Facility: [facility] Address: [address] [place] [address] Performed By: #### 2 4323-8, 37827-1 #### [facility] CLIA [id number] [address] [place] Urea nitrogen [Mass/Vol] 19 mg/dL Normal 7-21 [facility] Comment on above: Order Comment: Speci men Type: BLOOD SPECIMEN [facility]ing Facility: [facility] Address: [address] [place] [address] Performed By: #### 2 4323-8, 88528-1 #### [facility] CLIA [id number] [address] [place] ECG COMPLETEon 03-21-2023 ECG COMPLETE Ventricular Rate : 1 03 BPM Atrial Rate : 103 BPM P-R Interval : 134 ms QRS Duration : 80 ms Q-T Interval : 336 ms QTC Calculation(Bazett) : 440 ms Calculated P Oaks : 55 degrees Calculated R Oaks : 28 degrees Calculated T Oaks : 33 degrees SINUS TACHYCARDIA POSSIBLE LEFT ATRIAL ENLARGEMENT LOW VOLTAGE QRS CANNOT RULE OUT ANTERIOR INFARCT , AGE UNDETERMINED ABNORMAL ECG NO PREVIOUS ECGS AVAILABLE Confirmed by MD THAO THOMAS ([id number]) on 03/29/2023 8:55:56 PM NAME : HAYDEE BUSTAMANTE PID : [id number] : 1945 Gender : Female Race : ORD : [id number] Procedure Date : Mar 21 2023 09:24:27 Edit Date : Mar 29 2023 20:55:58 Diagnosis: SINUS TACHYCARDIA POSSIBLE LEFT ATRIAL ENLARGEMENT LOW VOLTAGE QRS CANNOT RULE OUT ANTERIOR INFARCT , AGE UNDETERMINED ABNORMAL ECG NO PREVIOUS ECGS AVAILABLE Confirmed by MD THAO THOMAS ([id number]) on 03/29/2023 8:55:56 PM Test Reason : Check QT Location : 4 : [facility] Overread By : MD THAO THOMAS Edited By : MD THAO THOMAS Referred By : , Acquired by : BREN CELIS [facility] ED NOTEon 03-21-2023 ED NOTE HNO ID: [id number] Author: MAGALYS PHILLIPS RN Service: ? Author Type: Registered Nurse Type: ED Notes Filed: 03/21/2023 15:01 Note Text: Report given to Lilia MITCHELL 5100 at this time. No further questions at this time. [facility] ED NOTE HNO ID: [id number] Author: ELKE PELAEZ RN Service: Emergency Medicine Author Type: Registered Nurse Type: ED Notes Filed: 03/21/2023 03:09 Note Text: REPORT GIVEN TO ARJUN MITCHELL [facility] PT panel Coag (PPP)on 2023 INR Coag (PPP) [Relative time] 3.9 {INR} High 0.9-1.3 [facility] Comment on above: Order Comment: Speci men Type: BLOOD SPECIMEN [facility] Facility: [facility] Address: [address] [place] [address] Result Comment: Halle min K Antagonist (VKA) Therapeutic Range: INR 2 to 3 (Target INR of 2.5) Note: For patients treated with VKA drugs, such as warfarin, the [employer] 2012 Guideline recommends [...] Chest 2012, 141:7S-47S Mitzi RA, et al. [facility] 2017, 70: 252-289 Performed By: #### 1 4196-0, 34619-8 #### [facility] CLIA [id number] [address] OF [facility] PT Coag (PPP) [Time] 37.0 s High 9.7-13.0 [facility] Comment on above: Order Comment: Speci men Type: BLOOD SPECIMEN [facility]ing Facility: [facility] Address: [address] [place] [address] Performed By: #### 1 4196-0, 35873-4 #### [facility] CLIA [id number] [address] Procalcitonin SerPl-mCncon 0 03-21-2023 Procalcitonin [Mass/Vol] 0.18 ng/mL High <0.09 [facility] Comment on above: Order Comment: Renay adkins Type: BLOOD SPECIMEN Ordering Facility: [facility] Address: [address] [place] [address] Result Comment: For a guided interpretation of test results, please visit the Change in Procalcitonin Calculator, [email or web address]. Performed By: #### 2 4323-8, 62187-1 #### [facility] CLIA [id number] [address] XR CHEST 1V FRONTALon 2023 XR [...] small left pleural effusion versus pleural thickening Manufacturing Worker: KRYSTAL Transcribe Date/Time: Mar 21 2023 11:07P [...] Renay adkins Type: BLOOD SPECIMEN [facility]ing Facility: [facility] Address: [address] [place] [address] Performed By: #### 1 4196-0, 47597-6 #### [facility] CLIA [id number] [address] [place] [address] [place] MITOGEN MINUS NIL >7.27 Normal >=0.50 [facility] Comment on above: Order Comment: Renay adkins Type: BLOOD SPECIMEN [facility]ing Facility: [facility] Address: [address] [place] [address] Performed By: #### 1 4196-0, 29450-2 #### [facility] CLIA [id number] [address] [place] [address] [place] TB GAMMA INTERPRETATION Infection with M . [...] Renay adkins Type: BLOOD SPECIMEN Ordering Facility: [facility] Address: [address] [place] [address] Performed By: #### 1 4196-0, 62499-5 #### [facility] CLIA [id number] [address] TB NIL 2.73 IU/mL Normal <=8.00 [facility] Comment on above: Order Comment: Speci men Type: BLOOD SPECIMEN Ordering Facility: [facility] Address: [facility] [place] [address] Performed By: #### 1 4196-0, 58548-7 #### [facility] CLIA [id number] [address] STATES OF [facility] TB1 AG MINUS NIL <0.00 Normal <0.35 [facility] Comment on above: Order Comment: Speci men Type: BLOOD SPECIMEN Ordering Facility: [facility] Address: [address] [place] [address] Performed By: #### 1 4196-0, 69097-9 #### [facility] CLIA [id number] [address] [place] TB2 AG MINUS NIL <0.00 Normal <0.35 [facility] Comment on above: Order Comment: Speci men Type: BLOOD SPECIMEN Ordering Facility: [facility] Address: [address] [place] [address] Performed By: #### 1 4196-0, 27576-8 #### [facility] CLIA [id number] 1 [place] [address] [place] Basic metabolic 2000 panelon 03-20-2023 Anion gap [Moles/Vol] 8 mmol/L Low 9-18 [facility] Comment on above: Order Comment: Speci men Type: BLOOD SPECIMEN Ordering Facility: [facility] Address: [address] [place] [address] Performed By: #### 1 4196-0, 56919-9 #### [facility] CLIA [id number] [address] [place] Calcium [Mass/Vol] 8.4 mg/dL Low 8.5-10.2 [facility] Comment on above: Order Comment: Speci men Type: BLOOD SPECIMEN Ordering Facility: [facility] Address: [address] [place] [address] Performed By: #### 1 4196-0, 16319-1 #### [facility] CLIA [id number] [address] Chloride [Moles/Vol] 96 mmol/L Low 97-105 [facility] Comment on above: Order Comment: Speci men Type: BLOOD SPECIMEN Ordering Facility: [facility] Address: [address] [place] [address] Performed By: #### 1 4196-0, 31283-1 #### [facility] CLIA [id number] [address] OF [facility] CO2 [Moles/Vol] 24 mmol/L Normal 22-30 [facility] Comment on above: Order Comment: Speci men Type: BLOOD SPECIMEN Ordering Facility: [facility] Address: [address] [place] [address] Performed By: #### 1 4196-0, 87936-1 #### [facility] CLIA [id number] [address] [place] [address] Creatinine [Mass/Vol] 0.84 mg/dL Normal 0.58-0.96 [facility] Comment on above: Order Comment: Speci men Type: BLOOD SPECIMEN Ordering Facility: [facility] Address: [address] [place] [address] Performed By: #### 1 4196-0, 99408-3 #### [facility] CLIA [id number] [address] [place] [address] Creatinine and Glomerular filtration rate.predicted panel (S/P/Bld) 73 mL/min/1.73m??? Normal >=60 [facility] Comment on above: Order Comment: Speci men Type: BLOOD SPECIMEN Ordering Facility: [facility] Address: [address] [place] [address] Result Comment: Meaghan mated Glomerular Filtration Rate [...] actual GFR. Performed By: #### 1 4196-0, 02227-4 #### [facility] CLIA [id number] [address] [place] [address] [place] Glucose [Mass/Vol] 77 mg/dL Normal 74-99 [facility] Comment on above: Order Comment: Renay adkins Type: BLOOD SPECIMEN Ordering Facility: [facility] Address: [address] [place] [address] Result Comment: The [employer] (ADA) provides guidance for cutoff [...] Standards of Medical Care in Diabetes 2016, [employer]. Diabetes Care. 2016.39(Suppl 1). Performed By: #### 1 4196-0, 54621-0 #### [facility] CLIA [id number] [address] [place] [address] [place] Potassium [Moles/Vol] 3.9 mmol/L Normal 3.7-5.1 [facility] Comment on above: Order Comment: Renay adkins Type: BLOOD SPECIMEN Ordering Facility: [facility] Address: [address] [place] [address] Performed By: #### 1 4196-0, 23282-4 #### [facility] CLIA [id number] [address] [place] [address] [place] Sodium [Moles/Vol] 128 mmol/L Low 136-144 [facility] Comment on above: Order Comment: Renay adkins Type: BLOOD SPECIMEN Ordering Facility: [facility] Address: [address] [place] [address] Performed By: #### 1 4196-0, 47564-2 #### [facility] CLIA [id number] [address] STATES [facility] Urea nitrogen [Mass/Vol] 25 mg/dL High 7-21 [facility] Comment on above: Order Comment: Speci men Type: BLOOD SPECIMEN Ordering Facility: [facility] Address: [address] [place] [address] Performed By: #### 1 4196-0, 83849-9 #### [facility] CLIA [id number] [address] OF [facility] CBC panel Auto (Bld)on 03-20 Erythrocyte distribution width (RBC) [Ratio] 16.3 % High 11.5-15.0 [facility] Comment on above: Order Comment: Speci men Type: BLOOD SPECIMEN Ordering Facility: [facility] Address: [address] [place] [address] Performed By: #### 1 4196-0, 54395-3 #### [facility] CLIA [id number] [address] [place] [address] Hematocrit (Bld) [Volume fraction] 24.6 % Low 36.0-46.0 [facility] Comment on above: Order Comment: Speci men Type: BLOOD SPECIMEN Ordering Facility: [facility] Address: [address] [place] [address] Performed By: #### 1 4196-0, 00407-1 #### [facility] CLIA [id number] [address] Hemoglobin (Bld) [Mass/Vol] 8.1 g/dL Low 11.5-15.5 [facility] Comment on above: Order Comment: Speci men Type: BLOOD SPECIMEN Ordering Facility: [facility] Address: [address] [place] [address] Performed By: #### 1 4196-0, 29989-6 #### [facility] CLIA [id number] [address] MCH (RBC) [Entitic mass] 26.9 pg Normal 26.0-34.0 [facility] Comment on above: Order Comment: Speci men Type: BLOOD SPECIMEN Ordering Facility: [facility] Address: [address] [place] [address] Performed By: #### 1 4196-0, 30139-2 #### [facility] CLIA [id number] [address] MCHC (RBC) [Mass/Vol] 32.9 g/dL Normal 30.5-36.0 [facility] Comment on above: Order Comment: Speci men Type: BLOOD SPECIMEN Ordering Facility: [facility] Address: [address] [place] [address] Performed By: #### 1 4196-0, 04034-6 #### [facility] CLIA [id number] [address] [place] [address] MCV (RBC) [Entitic vol] 81.7 fL Normal 80.0-100.0 [facility] Comment on above: Order Comment: Speci men Type: BLOOD SPECIMEN Ordering Facility: [facility] Address: [address] [place] [address] Performed By: #### 1 4196-0, 50037-4 #### [facility] CLIA [id number] [address] Nucleated RBC (Bld) [#/Vol] 10*3/uL Normal <0.01 [facility] Comment on above: Order Comment: Speci men Type: BLOOD SPECIMEN Ordering Facility: [facility] Address: [address] [place] [address] Performed By: #### 1 4196-0, 25894-2 #### [facility] CLIA [id number] [address] Platelet mean volume (Bld) [Entitic vol] 10.4 fL Normal 9.0-12.7 [facility] Comment on above: Order Comment: Speci men Type: BLOOD SPECIMEN Ordering Facility: [facility] Address: [address] [place] [address] Performed By: #### 1 4196-0, 05994-6 #### [facility] CLIA [id number] [address] Platelets (Bld) [#/Vol] 126 10*3/uL Low 150-400 [facility] Comment on above: Order Comment: Speci men Type: BLOOD SPECIMEN Ordering Facility: [facility] Address: [address] [place] [address] Result Comment: No c lot detected. Performed By: #### 1 4196-0, 72085-6 #### [facility] CLIA [id number] [address] [place] [address] RBC (Bld) [#/Vol] 3.01 10*6/uL Low 3.90-5.20 [facility] Comment on above: Order Comment: Speci men Type: BLOOD SPECIMEN Ordering Facility: [facility] Address: [address] [place] [address] Performed By: #### 1 4196-0, 01567-1 #### [facility] CLIA [id number] [address] WBC (Bld) [#/Vol] 5.06 10*3/uL Normal 3.70-11.00 [facility] Comment on above: Order Comment: Speci men Type: BLOOD SPECIMEN Ordering Facility: [facility] Address: [address] [place] [address] Performed By: #### 1 4196-0, 24709-6 #### [facility] CLIA [id number] [address] CONSULTon 03-20-2023 CONSULT HNO ID: [id number] Author: GENO HART MD Service: Infectious Disease [...] for recurrent lower extremity DVT, presented to [facility] 03/19/2023 for hemoptysis, going to the [place] ED but then sent here due to [...] be COVID-positive. 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 INR on arrival to [place] was 9. She given Vitamin K and transferred here. 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 No sustained Rx with Amiodarone, Nitrofurantoin, cancer chemotherapy. Smoking h/o: [id number] former smoker, quit in 1989. Late was [...] [facility]) 03/07/2015 Dr. Hurley ([facility]) Unspecified hemorrhoids without mention of complication [...] SPINE FUSN,POST INTERBODY 2011 Dr. Armando at [facility]. Diskectomy and laminectomy PAST SURGICAL [...] Speci men Type: BLOOD SPECIMEN Ordering Facility: [facility] Address: [address] [place] [address] Performed By: #### 3 3959-8, 71238-0 #### [facility] CLIA [id number] [address] OF [facility] ALP [Catalytic activity/Vol] 207 U/L High 34-123 [facility] Comment on above: Order Comment: Speci men Type: BLOOD SPECIMEN Ordering Facility: [facility] Address: [address] [place] [address] Performed By: #### 3 3959-8, 07066-4 #### [facility] CLIA [id number] [address] OF [facility] ALT With P-5'-P [Catalytic activity/Vol] 65 U/L High 7-38 [facility] Comment on above: Order Comment: Speci men Type: BLOOD SPECIMEN Ordering Facility: [facility] Address: [address] [place] [address] Performed By: #### 3 3959-8, 51311-5 #### [facility] CLIA [id number] [address] STATES [facility] Anion gap [Moles/Vol] 8 mmol/L Low 9-18 [facility] Comment on above: Order Comment: Speci men Type: BLOOD SPECIMEN Ordering Facility: [facility] Address: [address] [place] [address] Performed By: #### 3 3959-8, 63409-3 #### [facility] CLIA [id number] [address] OF [place] AST With P-5'-P [Catalytic activity/Vol] 55 U/L High 13-35 [facility] Comment on above: Order Comment: Speci men Type: BLOOD SPECIMEN Ordering Facility: [facility] Address: [address] [place] [address] Performed By: #### 3 3959-8, 64429-7 #### [facility] CLIA [id number] 1 [place] [address] [place] Bilirubin [Mass/Vol] 0.7 mg/dL Normal 0.2-1.3 [facility] Comment on above: Order Comment: Speci men Type: BLOOD SPECIMEN Ordering Facility: [facility] Address: [address] [place] [address] Performed By: #### 3 3959-8, #### [facility] CLIA [id number] [address] [place] Calcium [Mass/Vol] 8.3 mg/dL Low 8.5-10.2 [facility] Comment on above: Order Comment: Speci men Type: BLOOD SPECIMEN Ordering Facility: [facility] Address: [address] [place] [address] Performed By: #### 3 3959-8, 46649-2 #### [facility] CLIA [id number] 1 [place] [address] [place] Chloride [Moles/Vol] 95 mmol/L Low 97-105 [facility] Comment on above: Order Comment: Speci men Type: BLOOD SPECIMEN Ordering Facility: [facility] Address: [address] [place] [address] Performed By: #### 3 3959-8, 73809-9 #### [facility] CLIA [id number] 1 [place] [address] [place] CO2 [Moles/Vol] 25 mmol/L Normal 22-30 [facility] Comment on above: Order Comment: Speci men Type: BLOOD SPECIMEN Ordering Facility: [facility] Address: [address] [place] [address] Performed By: #### 3 3959-8, 76248-4 #### [facility] CLIA [id number] [address] STATES OF [facility] Creatinine [Mass/Vol] 0.86 mg/dL Normal 0.58-0.96 [facility] Comment on above: Order Comment: Renay adkins Type: BLOOD SPECIMEN Ordering Facility: [facility] Address: [address] [place] [address] Performed By: #### 3 3959-8, 53376-3 #### [facility] CLIA [id number] [address] Creatinine and Glomerular filtration rate.predicted panel (S/P/Bld) 71 mL/min/1.73m??? Normal >=60 [facility] Comment on above: Order Comment: Renay adkins Type: BLOOD SPECIMEN Ordering Facility: [facility] Address: [address] [place] [address] Result Comment: Meaghan mated Glomerular Filtration Rate [...] actual GFR. Performed By: #### 3 3959-8, 86209-7 #### [facility] CLIA [id number] [address] STATES OF [facility] Glucose [Mass/Vol] 84 mg/dL Normal 74-99 [facility] Comment on above: Order Comment: Renay adkins Type: BLOOD SPECIMEN Ordering Facility: [facility] Address: [address] [place] [address] Result Comment: The [employer] (ADA) provides guidance for cutoff [...] Standards of Medical Care in Diabetes 2016, [employer]. Diabetes Care. 2016.39(Suppl 1). Performed By: #### 3 3959-8, 96829-6 #### [facility] CLIA [id number] [address] [place] Potassium [Moles/Vol] 4.3 mmol/L Normal 3.7-5.1 [facility] Comment on above: Order Comment: Speci men Type: BLOOD SPECIMEN Ordering Facility: [facility] Address: [address] [place] [address] Performed By: #### 3 3959-8, 52140-8 #### [facility] CLIA [id number] 1 [place] [address] [place] Protein [Mass/Vol] 4.7 g/dL Low 6.3-8.0 [facility] Comment on above: Order Comment: Speci men Type: BLOOD SPECIMEN Ordering Facility: [facility] Address: [address] [place] [address] Performed By: #### 3 3959-8, 47641-7 #### [facility] CLIA [id number] [address] [place] Sodium [Moles/Vol] 128 mmol/L Low 136-144 [facility] Comment on above: Order Comment: Speci men Type: BLOOD SPECIMEN Ordering Facility: [facility] Address: [address] [place] [address] Performed By: #### 3 3959-8, 95384-3 #### [facility] CLIA [id number] 1 [place] [address] [place] Urea nitrogen [Mass/Vol] 20 mg/dL Normal 7-21 [facility] Comment on above: Order Comment: Speci men Type: BLOOD SPECIMEN Ordering Facility: [facility] Address: [address] [place] [address] Performed By: #### 3 3959-8, 80176-1 #### [facility] CLIA [id number] [address] ED NOTEon 03-20-2023 ED NOTE HNO ID: [id number] Author: ELKE PELAEZ RN Service: Emergency Medicine Author Type: Registered Nurse Type: ED Notes Filed: 03/20/2023 17:13 Note Text: Pt given food tray [facility] ED NOTE HNO ID: [id number] Author: ELKE PELAEZ RN Service: Emergency Medicine Author Type: Registered Nurse Type: ED Notes Filed: 03/20/2023 15:44 Note Text: Pt ambulating to bathroom with steady gait Normal [facility] ED NOTE HNO ID: [id number] Author: AMERICA ASTORGA RN Service: Emergency Medicine Author Type: Registered Nurse Type: ED Notes Filed: 03/20/2023 12:24 Note Text: Pt given lunch tray at this time. Normal [facility] ED NOTE HNO ID: [id number] Author: BIBI GONZALEZ RN Service: Emergency Medicine Author Type: Registered Nurse Type: ED Notes Filed: 03/20/2023 06:27 Note Text: Surgery at bedside [facility] ED NOTE HNO ID: [id number] Author: BIBI GONZALEZ RN Service: Emergency Medicine Author Type: Registered Nurse Type: ED Notes Filed: 03/20/2023 06:23 Note Text: Patient ambulatory to restroom and back with steady gait. Normal [facility] ED NOTE HNO ID: [id number] Author: BIBI GONZALEZ RN Service: Emergency Medicine Author Type: Registered Nurse Type: ED Notes Filed: 03/20/2023 02:11 Note Text: Patient ambulatory to restroom and back with steady gait. Normal [facility] PT panel Coag (PPP)on 2023 INR Coag (PPP) [Relative time] 4.7 {INR} High 0.9-1.3 [facility] Comment on above: Order Comment: Speci men Type: BLOOD SPECIMENOrdering Facility: [facility] Address: [address] [place] [address] Result Comment: Halle min K Antagonist (VKA) Therapeutic Range: INR 2 to 3 (Target INR of 2.5) Note: For patients treated with VKA drugs, such as warfarin, the [employer] 2012 Guideline recommends [...] Chest 2012, 141:7S-47S Mitzi RA, et al. [facility] 2017, 70: 252-289 Performed By: #### 3 4528-0 ####[facility] [id number] [place] [address] [place] PT Coag (PPP) [Time] 44.0 s High 9.7-13.0 [facility] Comment on above: Order Comment: Speci men Type: BLOOD SPECIMENOrdering Facility: [facility] Address: [address] [place] [address] Performed By: #### 3 4528-0 ####[facility]IA [id number] [address] STATES OF [facility] INR Coag (PPP) [Relative time] 5.7 {INR} High 0.9-1.3 [facility] Comment on above: Order Comment: Speci men Type: BLOOD SPECIMENOrdering Facility: [facility] Address: [address] [place] [address] Result Comment: Halle min K Antagonist (VKA) Therapeutic Range: INR 2 to 3 (Target INR of 2.5) Note: For patients treated with VKA drugs, such as warfarin, the [employer] 2012 Guideline recommends [...] Chest 2012, 141:7S-47S Mitzi RA, et al. [facility] 2017, 70: 252-289 Performed By: #### 3 4528-0 ####[facility] [id number] [address] OF [facility] PT Coag (PPP) [Time] 52.4 s High 9.7-13.0 [facility] Comment on above: Order Comment: Speci men Type: BLOOD SPECIMENOrdering Facility: [facility] Address: [address] [place] [address] Performed By: #### 3 4528-0 ####[facility] [id number] [address] Procalcitonin SerPl-mCncon 0 03-20-2023 Procalcitonin [Mass/Vol] 0.20 ng/mL High <0.09 [facility] Comment on above: Order Comment: Speci men Type: BLOOD SPECIMEN Ordering Facility: [facility] Address: [address] [place] [address] Result Comment: For a guided interpretation of test results, please visit the Change in Procalcitonin Calculator, [email or web address]. Performed By: #### 3 3959-8, 74652-0 #### [facility] CLIA [id number] [address] Resp path 12b Pnl Spec GWEN+p [...] on above: Performed By: #### 6 0566-7 ####[facility]IA [id number] [place] [address] [place] Absolute lymphocyte countOrd ered By: Bob Elias on 03-19-2023 Lymphocytes Auto (Unsp spec) [#/Vol] 0.97 10*3/uL 0.83-4.51 [facility] Activated partial thrombopla stin time (aPTT) in platelet poor plasma by coagulation aOrdered By: Bob Elias on 03-19-2023 aPTT Coag (PPP) [Time] 109.6 s 24.1-36.2 [facility] Comment on above: CRITICAL VALUE VERIF IED. CALLED TO MYNOR MITCHELL (ER)03/19/23 1200 Chacho Bernal.RESULTS READ BACK BY SAME. Automated lymphocyte count a s percentage of total leukocytesOrdered By: Bob Elias on 03-19-2023 Lymphocytes/100 WBC Auto (Unsp spec) 15.1 % 19-41 [facility] Basic metabolic 2000 panelon 03-19-2023 Anion gap [Moles/Vol] 8 mmol/L Low 9-18 [facility] Comment on above: Order Comment: Speci men Type: BLOOD SPECIMENOrdering Facility: [facility] Address: [address] [place] [address] Performed By: #### 2 4321-2 ####[facility]IA [id number] [place] [address] [place] Calcium [Mass/Vol] 8.9 mg/dL Normal 8.5-10.2 [facility] Comment on above: Order Comment: Speci men Type: BLOOD SPECIMENOrdering Facility: [facility] Address: [address] [place] [address] Performed By: #### 2 4321-2 ####[facility]ORYCLIA [id number] [place] [address] [place] Chloride [Moles/Vol] 95 mmol/L Low 97-105 [facility] Comment on above: Order Comment: Speci men Type: BLOOD SPECIMENOrdering Facility: [facility] Address: [address] [place] [address] Performed By: #### 2 4321-2 ####[facility]ORYCLIA [id number] [address] [place] CO2 [Moles/Vol] 25 mmol/L Normal 22-30 [facility] Comment on above: Order Comment: Speci men Type: BLOOD SPECIMENOrdering Facility: [facility] Address: [address] [place] [address] Performed By: #### 2 4321-2 ####[facility]ORYCLIA [id number] [address] [place] Creatinine [Mass/Vol] 0.88 mg/dL Normal 0.58-0.96 [facility] Comment on above: Order Comment: Speci men Type: BLOOD SPECIMENOrdering Facility: [facility] Address: [address] [place] [address] Performed By: #### 2 4321-2 ####[facility]ORYCLIA [id number] [address] [place] Creatinine and Glomerular filtration rate.predicted panel (S/P/Bld) 69 mL/min/1.73m??? Normal >=60 [facility] Comment on above: Order Comment: Speci men Type: BLOOD SPECIMENOrdering Facility: [facility] Address: [address] [place] [address] Result Comment: Meaghan mated Glomerular Filtration Rate [...] actual GFR. Performed By: #### 2 4321-2 ####[facility]ORYCLIA [id number] [place] [address] [place] Glucose [Mass/Vol] 87 mg/dL Normal 74-99 [facility] Comment on above: Order Comment: Speci men Type: BLOOD SPECIMENOrdering Facility: [facility] Address: [address] [place] [address] Result Comment: The [place] [employer] (ADA) provides guidance for cutoff [...] Standards of Medical Care in Diabetes 2016, [employer]. Diabetes Care. 2016.39(Suppl 1). Performed By: #### 2 4321-2 ####[facility]ORYCLIA [id number] [place] [address] [place] Potassium [Moles/Vol] 4.3 mmol/L Normal 3.7-5.1 [facility] Comment on above: Order Comment: Speci men Type: BLOOD SPECIMENOrdering Facility: [facility] Address: [address] [place] [id number] Performed By: #### 2 4321-2 ####[facility]ORYCLIA [id number] [place] [address] [place] Sodium [Moles/Vol] 128 mmol/L Low 136-144 [facility] Comment on above: Order Comment: Speci men Type: BLOOD SPECIMENOrdering Facility: [facility] Address: [address] [place] [address] Performed By: #### 2 4321-2 ####[facility]ATORYCLIA [id number] [place] [id number] [place] Urea nitrogen [Mass/Vol] 27 mg/dL High 7-21 [facility] Comment on above: Order Comment: Speci men Type: BLOOD SPECIMENOrdering Facility: [facility] Address: [address] [place] [address] Performed By: #### 2 4321-2 ####[facility]ORYCLIA [id number] [place] [id number] [place] OF [facility] Basophil percentageOrdered B y: Bob lEias on 03-19-2023 Basophil percentage 9.0 g/dL 12.0-15.0 [facility] Basophil percentage 89 mg/dL 74-106 [facility] Basophil percentage 130 mmol/L 136-145 [facility] Basophil percentage 4.5 mmol/L 3.5-5.1 [facility] Basophil percentage 100 mmol/L 98-107 [facility] Basophils (Bld) [#/Vol] 6.4 10*3/uL 4.4-11.0 [facility] Basophils (Bld) [#/Vol] 4.4 10*3/uL 2.0-7.7 [facility] Basophils/100 WBC (Bld) 1.1 % 0-1 [facility] Basophils/100 WBC (Bld) 68.8 % 47-70 [facility] Basophils/100 WBC (Bld) 10.9 % 0-10 [facility] Basophils/100 WBC (Bld) 2.5 % 0-5 [facility] Chloride [Moles/Vol] 100 mmol/L 98-107 [facility] Eosinophils/100 WBC (Bld) 2.5 % 0-5 [facility] Glucose [Mass/Vol] 89 mg/dL 74-106 [facility] Hemoglobin (Bld) [Mass/Vol] 9.0 g/dL 12.0-15.0 [facility] Monocytes/100 WBC (Bld) 10.9 % 0-10 [facility] Neutrophils (Bld) [#/Vol] 4.4 10*3/uL 2.0-7.7 [facility] Neutrophils/100 WBC (Bld) 68.8 % 47-70 [facility] Potassium [Moles/Vol] 4.5 mmol/L 3.5-5.1 [facility] Sodium [Moles/Vol] 130 mmol/L 136-145 [facility] WBC (Bld) [#/Vol] 6.4 10*3/uL 4.4-11.0 [facility] CBC panel Auto (Bld)on 03-19 Erythrocyte distribution width (RBC) [Ratio] 16.3 % High 11.5-15.0 [facility] Comment on above: Order Comment: Renay adkins Type: BLOOD SPECIMEN Ordering Facility: [facility] Address: [address] [place] [address] Performed By: #### 1 4196-0, 14630-3 #### [facility] CLIA [id number] [address] [place] [address] STATES OF [facility] Hematocrit (Bld) [Volume fraction] 29.2 % Low 36.0-46.0 [facility] Comment on above: Order Comment: Renay adkins Type: BLOOD SPECIMEN Ordering Facility: [facility] Address: [address] [place] [address] Performed By: #### 1 4196-0, 63540-9 #### [facility] CLIA [id number] [address] [place] [address] [place] Hemoglobin (Bld) [Mass/Vol] 9.6 g/dL Low 11.5-15.5 [facility] Comment on above: Order Comment: Renay adkins Type: BLOOD SPECIMEN Ordering Facility: [facility] Address: [address] [place] [address] Performed By: #### 1 4196-0, 09558-9 #### [facility] CLIA [id number] [address] [place] MCH (RBC) [Entitic mass] 26.7 pg Normal 26.0-34.0 [facility] Comment on above: Order Comment: Speci men Type: BLOOD SPECIMEN Ordering Facility: [facility] Address: [address] [place] [address] Performed By: #### 1 4196-0, 28178-9 #### [facility] CLIA [id number] [address] MCHC (RBC) [Mass/Vol] 32.9 g/dL Normal 30.5-36.0 [facility] Comment on above: Order Comment: Speci men Type: BLOOD SPECIMEN Ordering Facility: [facility] Address: [address] [place] [address] Performed By: #### 1 4196-0, 55235-8 #### [facility] CLIA [id number] [address] [place] [address] [place] MCV (RBC) [Entitic vol] 81.1 fL Normal 80.0-100.0 [facility] Comment on above: Order Comment: Speci men Type: BLOOD SPECIMEN Ordering Facility: [facility] Address: [address] [place] [address] Performed By: #### 1 4196-0, 43433-2 #### [facility] CLIA [id number] [address] [place] [address] Nucleated RBC (Bld) [#/Vol] 10*3/uL Normal <0.01 [facility] Comment on above: Order Comment: Speci men Type: BLOOD SPECIMEN Ordering Facility: [facility] Address: [address] [place] [address] Performed By: #### 1 4196-0, 17049-5 #### [facility] CLIA [id number] [address] Platelet mean volume (Bld) [Entitic vol] 9.6 fL Normal 9.0-12.7 [facility] Comment on above: Order Comment: Speci men Type: BLOOD SPECIMEN Ordering Facility: [facility] Address: [address] [place] [address] Performed By: #### 1 4196-0, 26797-8 #### [facility] CLIA [id number] [address] Platelets (Bld) [#/Vol] 144 10*3/uL Low 150-400 [facility] Comment on above: Order Comment: Speci men Type: BLOOD SPECIMEN Ordering Facility: [facility] Address: [address] [place] [address] Performed By: #### 1 4196-0, 05988-8 #### [facility] CLIA [id number] [address] [place] RBC (Bld) [#/Vol] 3.60 10*6/uL Low 3.90-5.20 [facility] Comment on above: Order Comment: Speci men Type: BLOOD SPECIMEN Ordering Facility: [facility] Address: [address] [place] [address] Performed By: #### 1 4196-0, 09620-9 #### [facility] CLIA [id number] [address] WBC (Bld) [#/Vol] 7.48 10*3/uL Normal 3.70-11.00 [facility] Comment on above: Order Comment: Speci men Type: BLOOD SPECIMEN Ordering Facility: [facility] Address: [address] [place] [address] Performed By: #### 1 4196-0, 80867-9 #### [facility] CLIA [id number] [address] Determination of erythrocyte mean corpuscular volume (MCV)Ordered By: Bob Elias on 03-19-2023 MCV (RBC) [Entitic vol] 81.5 fL 81-99 [facility] ED NOTEon 03-19-2023 ED NOTE HNO ID: [id number] Author: BIBI GONZALEZ RN Service: Emergency Medicine Author Type: Registered Nurse Type: ED Notes Filed: 03/19/2023 20:07 Note Text: CT notified pt is ready Normal [facility] ED NOTE HNO ID: [id number] Author: APRIL SOARES RN Service: ? 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 She states that yesterday morning she was woken up from her sleep with persistent coughing and an episode of hemoptysis. She states that she has intermittently had blood tinge to her sputum but states that this was much more than normal. She is on Coumadin for history of prior DVT and states that she has been compliant with this. While she was at [place], she was found to have an INR [...] [facility]) 03/07/2015 Dr. Hurley ([facility]) Unspecified hemorrhoids without mention of complication [...] [facility] ED PROV NOTE HNO ID: [id number] Author: CHACHO ERNST DO Service: Emergency Medicine [...] presents with: Functional Transfers: Pt transferred from [place] ED for free air and perf bowel. Pt states she initially went to the hospital for ongoing sore throat and one episode of hemoptysis early this morning. Pt denies chest or abd pain. Pt tested positive for Covid at [place]. HPI Patient is a 77-year-old female with past medical history of DVT on Coumadin, COPD, recent diagnosis of histoplasmosis and Blastomyces, COVID-positive today presenting to the emergency department from was from [facility] due to possible bowel perf on imaging. Pt denies any pain currently. Pt reports that she went to [place] this morning after spitting up a small amount of bright red blood from a cough which has been ongoing since January. Pt reports having a sore throat at this time but denies any lightheadedness, CP, SOB, abdominal pain, and denies any nausea or vomiting. Per EMS, pt had an INR of 9.4 at [place]. Patient reports that she is on Coumadin [...] positive rheumatoid factor (HCC) 03/07/2015 Dr. Hurley ([facility]) Unspecified hemorrhoids without mention of complication [...] SPINE FUSN,POST INTERBODY 2011 Dr. Armando at [facility]. Diskectomy and laminectomy PAST SURGICAL [...] distribution width (RBC) [Ratio] 16.3 % 11.6-14.6 [facility] Erythrocyte distribution wid th standard deviationOrdered By: Bob Elias on 03-19-2023 Erythrocyte distribution width (RBC) [Entitic vol] 48.3 fL 35.1-43.9 [facility] HISTORY PHYSICALon HISTORY PHYSICAL HNO ID: [id number] Author: PAMELA HALL MD Service: General Surgery [...] in the colon. INR on arrival to [place] was 9. She given Vitamin K and transferred here. Patient denies any abdominal pain, nausea, vomiting, fevers, or chills. Patient reports normal bowel movements. Slightly tachycardic on arrival. HDS. Repeat CBC, BMP, PT/INR pending. CTAP read in [employer], currently waiting on image transfer from [place]. Noprevious abdominal surgeries. Last colonoscopy in 2019 [...] positive rheumatoid factor (HCC) 03/07/2015 Dr. Hurley ([facility]) Unspecified hemorrhoids without mention of complication [...] SPINE FUSN,POST INTERBODY 2011 Dr. Armando at [facility]. Diskectomy and laminectomy PAST SURGICAL [...] in the colon. INR on arrival to [place] was 9. She given Vitamin K and transferred here. Pneumatosis intestinalis (more content not included)... Normal [facility] Hematocrit Auto (Bld) [Volum e fraction]Ordered By: Bob Elias on 03-19-2023 Hematocrit (Bld) [Volume fraction] 27.7 % 37-47 [facility] Immature granulocytes/100 WB C Auto (Bld)Ordered By: Bob Elias on 03-19-2023 Immature granulocytes/100 WBC (Bld) 1.600 % 0.0-0.9 [facility] Comment on above: IG% - Immature Granu locytes (promyelocytes, myelocytes and metamyelocytes) > 1% indicates that a LEFT SHIFT is Present. International normalized rat io (INR) calculationOrdered By: Bob Elias on 03-19-2023 INR Coag (PPP) [Relative time] 9.4 {INR} [facility] Comment on above: CRITICAL VALUE VERIF IED. CALLED TO MYNOR MITCHELL (ER)03/19/23 [address].RESULTS READ BACK BY SAME. Laboratory - Chemistry and C hemistry - challengeOrdered By: Bob Elias on 03-19-2023 CO2 [Moles/Vol] 26.0 mmol/L 21.0-32.0 [facility] Urea nitrogen/Creatinine [Mass ratio] 35.7 mg/mg 10-20 [facility] Laboratory - CoagulationOrde red By: Bob Elias on 03-19-2023 PT Coag (PPP) [Time] 78.0 s 11.7-14.9 [facility] Laboratory - Hematology and Cell countsOrdered By: Bob Elias on 03-19-2023 MCH (RBC) [Entitic mass] 26.5 pg 27.0-32.0 [facility] MCHC (RBC) [Mass/Vol] 32.5 g/dL 32-36 [facility] Nucleated RBC/100 WBC (Bld) [Ratio] 0 % 0-5 [facility] Platelets (Bld) [#/Vol] 145 10*3/uL 150-450 [facility] Laboratory - Microbiology an d Antimicrobial susceptibilityOrdered By: Bob Elias on 03-19-2023 SARS-CoV-2 (COVID-19) RNA GWEN+probe Ql (Unsp spec) SARS-CoV-2 (COVID 19 PCR) [facility] SARS-CoV-2 (COVID-19) RNA GWEN+probe Ql (Unsp spec) SARS-CoV-2 (COVID 19 PCR) [facility] Lactate (Bld) [Moles/Vol]on 03-19-2023 Lactate [Moles/Vol] 1.2 mmol/L Normal 0.5-2.2 [facility] Comment on above: Order Comment: Speci men Type: BLOOD SPECIMEN Ordering Facility: [facility] Address: [address] [place] [address] Performed By: #### 1 4196-0, 50357-2 #### [facility] CLIA [id number] [address] [place] [id number] [place] No Panel InformationOrdered By: Bob Elias on 03-19-2023 Estimated Creatinine Clearance Calc 44.81 ml/min [facility] Estimated GFR (MDRD) Amer 73 mL/min >60 [facility] Comment on above: GFR Calc Estimated GFR (MDRD) Non-Af Amer 61 mL/min >60 [facility] Comment on above: Non- GFR Calc 26.5 pg 27.0-32.0 [facility] 32.5 g/dL 32-36 [facility] 145 K/mm3 150-450 [facility] 0 % 0-5 [facility] 78.0 SECONDS 11.7-14.9 [facility] 61 mL/min >60 [facility] 73 mL/min >60 [facility] 44.81 ml/min [facility] 35.7 RATIO 10-20 [facility] 26.0 mmol/L 21.0-32.0 [facility] SARS-CoV-2 (COVID 19 PCR) [facility] PT panel Coag (PPP)on 2023 INR Coag (PPP) [Relative time] {INR} High 0.9-1.3 [facility] Comment on above: Order Comment: Speci men Type: BLOOD SPECIMEN Ordering Facility: [facility] Address: [address] [place] [address] Result Comment: Halle min K Antagonist (VKA) Therapeutic Range: INR 2 to 3 (Target INR of 2.5) Note: For patients treated with VKA drugs, such as warfarin, the [employer] 2012 Guideline recommends [...] ALEXIS, et al. Chest 2012, 141:7S-47S Mitzi TOLEDO et al. [facility] 2017, 70: 252-289 Performed By: #### 1 4196-0, 31280-3 #### [facility] CLIA [id number] [address] [place] [id number] [place] PT Coag (PPP) [Time] 76.9 s High 9.7-13.0 [facility] Comment on above: Order Comment: Speci men Type: BLOOD SPECIMEN Ordering Facility: [facility] Address: [address] [place], [place] [address] [address] Performed By: #### 1 4196-0, 52321-9 #### [facility] CLIA [id number] [address] [place] [address] [place] Platelet mean volume Nicholas-Ec ker (Bld) [Entitic vol]Ordered By: Bob Elias on 03-19-2023 Platelet mean volume (Bld) [Entitic vol] 10.3 fL 6.2-12.0 [facility] RBC Auto (Bld) [#/Vol]Ordere d By: Bob Elias on 03-19-2023 RBC (Bld) [#/Vol] 3.40 10*6/uL 4.2-5.4 [facility] Serum or plasma calcium monica urement (mass/volume)Ordered By: Bob Elias on 03-19-2023 Calcium [Mass/Vol] 9.1 mg/dL 8.5-10.1 [facility] Serum or plasma creatinine m easurement (mass/volume)Ordered By: Bob Elias on 03-19-2023 Creatinine [Mass/Vol] 0.95 mg/dL 0.55-1.02 [facility] Comment on above: The validity of the calculated GFR & GFRAA in patients over 70 years has not been determined. Clinical correlation is essential. Serum or plasma urea nitroge n measurement (mass/volume)Ordered By: Bob Elias on 03-19-2023 Urea nitrogen [Mass/Vol] 34 mg/dL 7-18 [facility] Thin prep Papanicolaou smear with manual screeningOrdered By: Bob Elias on 03-19-2023 Thin prep Papanicolaou smear with manual screening 4 5-15 [facility] COVID & INFLUENZA A/B & RSV NAAT, ROUTINEon 02-07-2023 FLUAV RNA GWEN+probe Ql (Unsp spec) Not detected Not Detected [facility] FLUBV RNA GWEN+probe Ql (Unsp spec) Not detected Not Detected [facility] RSV A RNA GWEN+probe Ql (Unsp spec) Not detected Not Detected [facility] SARS-CoV-2 (COVID-19) RNA GWEN+probe Ql (Resp) Not detected See comment [facility] XR CHEST 2V FRONTAL/LATon [facility] XR Chest PA and Lateralon IMPRESSION: Mild prominence markings RIGHT lung base may be due to known RIGHT middle lobe bronchiectasis. Small infiltrate cannot be excluded. Manufacturing Worker: [email or web address] Transcribe Date/Time: Feb 07 2023 11:42A Dictated by : JASMYN MÉNDEZ MD This examination was interpreted and the report reviewed and electronically signed by: JASMYN MÉNDEZ MD on Feb 07 2023 11:46AM [facility] DIVISION OF RADIOLOGY * * *Final [...] soft tissues: Unremarkable. DIVISION OF RADIOLOGY Provider, [facility] - 02/07/2023 * * *Final Report* [...] lobe bronchiectasis. Small infiltrate cannot be excluded. Manufacturing Worker: [email or web address] Transcribe Date/Time: Feb 07 2023 11:42A Dictated by : JASMYN MÉNDEZ MD This examination was interpreted and the report reviewed and electronically signed by: JASMYN MÉNDEZ MD on Feb 07 2023 11:46AM EST [facility] Radiology Study observation (narrative) [facility] XR Chest PA and LateralOrder ed By: Ccf Provider on 02-07-2023 [facility] INR (POC)on 01-04-2023 INR Coag (PPP) [Relative time] 2.6 {INR} High 0.8 - 1.2 [facility] Internal Quality Check Acceptable Cl [facility] SABINO SCREENING W TOMOon 11-17 [facility] ECG COMPLETEon 08-30-2022 Atrial Rate 75 BPM [facility] Calculated P [place]aks 63 degrees [facility] Calculated R Oaks 46 degrees [facility] Calculated T [place]aks 58 degrees [facility] P-R Interval 156 ms [facility] QRS Duration 62 ms [facility] QT Interval 358 ms [facility] QTC Calculation (Bazett) 399 ms [facility] Ventricular Rate 75 BPM [facility] [address] CHEST WO IVCONon 07-21-19 [facility] XR Pelvis and Hip - left AP and Lateral frogon 12-31-2021 IMPRESSION: No acute pathology. 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 DIVISION OF RADIOLOGY Provider, Narayan Wood [facility] - 12/31/2021 * * *Final Report* [...] acute pathology. 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 Manufacturing Worker: [email or web address] Transcribe Date/Time: Dec 31 2021 11:55A Dictated by : BANDAR BELL DO This examination was interpreted and the report reviewed and electronically signed by: BANDAR BELL DO on Dec 31 2021 11:58AM EST [facility] Radiology Study observation (narrative) [facility] XR Pelvis and Hip - left AP and Lateral frogOrdered By: Ccf Provider on 12-31-2021 [facility] No Panel Informationon 10-18 [facility] SABINO DIAGNOSTIC LTon 10-13-19 22 [facility] US BREAST LTD LTon 2 [facility] SABINO SCREENINGon 09-05-2021 [facility] INR in Blood by Coagulation assayon 07-07-2021 INR Coag (Bld) [Relative time] 1.7 {INR} [facility] Work Phone: Laboratory - Coagulationon 0 07-07-2021 PT Coag (PPP) [Time] 19.5 s 11.7-14.9 [facility] Work Phone: Histoplasma Ag, Urineon 02-19 Histoplasma Ag,Urine Not Detected Normal [facility] Comment on above: Performed By: #### H ISRUTH #### The performing lab is in the report. Interpretation Not Detected Normal Not Detected [facility] Comment on above: Result Comment: INTE RPRETIVE [...] histoplasmosis. Test developed and characteristics determined by [facility]. See Compliance Statement B: [facility] Performed by [facility], [address] [place] [id number] [email or web address], Christopher Yen MD - Lab. Director Performed By: #### H ISRUTH #### The performing lab is in the report. Vital Signs Date Time Vital Sign Value Performing Clinician Facility 10-24-2024 13:12-0400 Body mass index (BMI) [Ratio] 23.51 kg/m2 Claudine Durán MD Work Phone: [facility] 10-24-2024 13:12-040 Body weight 58.3 kg Claudine Durán MD Work Phone: [facility] 10-24-2024 13:12-040 Diastolic blood pressure 62 mm[Hg] Claudine Durán MD Work Phone: [facility] 10-24-2024 13:12-0400 Heart rate 81 /min Claudine Durán MD Work Phone: [facility] 10-24-2024 13:12-0400 Respiratory rate 16 /min Claudine Durán MD Work Phone: [facility] 10-24-2024 13:12-0400 SaO2% (BldA) [Mass fraction] 99 % Claudine Durán MD Work Phone: [facility] 10-24-2024 13:12-0400 Systolic blood pressure 124 mm[Hg] Claudine Durán MD Work Phone: [facility] 10-19-2024 02:41-0400 Diastolic blood pressure 88 mm[Hg] Dr. Claudine Durán MD Work Phone: [facility] 10-19-2024 02:41-0400 Heart rate 81 /min Dr. Claudine Durán MD Work Phone: 9(681)267-627590 [place] [address] 10-19-2024 02:41-0400 Respiratory rate 18 /min Dr. Claudine Durán MD Work Phone: 2(477)842-539190 [place] [address] 10-19-2024 02:41-0400 SaO2% (BldA) [Mass fraction] 99 % Dr. Claudine Durán MD Work Phone: 9(732)959-390165 [place] [address] 10-19-2024 02:41-0400 Systolic blood pressure 112 mm[Hg] Dr. Claudine Durán MD Work Phone: 3(118)150-961265 [place] [address] 10-19-2024 02:37-0400 Body temperature 98.2 [degF] Dr. Claudine Durán MD Work Phone: 5(362)415-294565 [place] [address] 10-19-2024 00:42-0400 Body height 160.[address] Claudine Durán MD Work Phone: 5(579)553-475590 [place] [address] 10-19-2024 00:42-0400 Body mass index (BMI) [Ratio] 23.1 kg/m2 Dr. Claudine Durán MD Work Phone: 1(865)084-818965 [place] [address] 10-19-2024 00:42-0400 Body weight 59.[address] Claudine Durán MD Work Phone: 6(046)483-470665 [place] [address] 10-02-2024 09:57-0400 Body height 160.[address] Claudine Durán MD Work Phone: 3(992)863-387190 [place] [address] 08-27-2024 16:27-0400 Body temperature 97.8 [degF] Dr. Claudine Durán MD Work Phone: 3(355)929-487590 [place] [address] 08-27-2024 16:27-0400 Diastolic blood pressure 53 mm[Hg] Dr. Claudine Durán MD Work Phone: 3(954)457-524290 [place] [address] 08-27-2024 16:27-0400 Heart rate 89 /min Dr. Claudine Durán MD Work Phone: 3(801)421-554490 [place] [address] 08-27-2024 16:27-0400 Respiratory rate 18 /min Dr. Claudine Durán MD Work Phone: 7(847)862-847990 [place] [address] 08-27-2024 16:27-0400 SaO2% (BldA) [Mass fraction] 97 % Dr. Claudine Durán MD Work Phone: 8(263)416-592990 [place] [address] 08-27-2024 16:27-0400 Systolic blood pressure 127 mm[Hg] Dr. Claudine Durán MD Work Phone: 9(420)017-568690 [place] [address] 08-27-2024 05:47-0400 Body mass index (BMI) [Ratio] 24 kg/m2 Dr. Claudine Durán MD Work Phone: 5(319)491-255390 [place] [address] 08-27-2024 05:47-0400 Body weight 61.[address] Claudine Durán MD Work Phone: 5(224)097-083690 [place] [address] 08-23-2024 11:59-0400 Body temperature 98.2 [degF] Dr. Claudine Durán MD Work Phone: 8(458)681-209790 [place] [address] 08-23-2024 11:59-0400 Diastolic blood pressure 82 mm[Hg] Dr. Claudine Durán MD Work Phone: 1(639)800-830890 [place] [address] 08-23-2024 11:59-0400 Heart rate 80 /min Dr. Claudine Durán MD Work Phone: [facility] 08-23-2024 11:59-0400 Respiratory rate 16 /min Dr. Claudine Durán MD Work Phone: 5(767)099-109965 [place] [address] 08-23-2024 11:59-0400 SaO2% (BldA) [Mass fraction] 100 % Dr. Claudine Durán MD Work Phone: 2(026)645-392890 [place] [address] 08-23-2024 11:59-0400 Systolic blood pressure 148 mm[Hg] Dr. Claudine Durán MD Work Phone: 7(477)856-471990 [place] [address] 08-23-2024 11:43-0400 Body height 160.[address] Claudine Durán MD Work Phone: 4(820)301-455690 [place] [address] 08-23-2024 11:43-0400 Body mass index (BMI) [Ratio] 22.8 kg/m2 Dr. Claudine Durán MD Work Phone: 4(890)511-893365 [place] [address] 08-23-2024 11:43-0400 Body weight 58.[address] Claudine Durán MD Work Phone: 3(598)852-043397 [address] 08-21-2024 11:14-0400 Body weight 59.[address] Claudine Durán MD Work Phone: 3(669)414-492765 [place] [address] 07-24-2024 10:25-0400 Body height 160.[address] Claudine Durán MD Work Phone: 6(344)568-576465 [place] [address] 07-24-2024 10:25-0400 Body weight 60.[address] Claudine Durán MD Work Phone: 2(477)053-626965 [place] [address] 07-22-2024 14:20-0400 Body height 157.5 cm Brissa Chester APRN.AGENT BASED MODELER Work Phone: [facility] 07-22-2024 14:20-0400 Body mass index (BMI) [Ratio] 23.67 kg/m2 Brissa Chester APRN.AGENT BASED MODELER Work Phone: [facility] 07-22-2024 14:20-0400 Body weight 58.7 kg Brissa Chester SEAM SEWER.AGENT BASED MODELER Work Phone: [facility] 07-22-2024 14:20-0400 Diastolic blood pressure 65 mm[Hg] Brissa Chester SEAM SEWER.AGENT BASED MODELER Work Phone: [facility] 07-22-2024 14:20-0400 Heart rate 75 /min Brissa Chester SEAM SEWER.AGENT BASED MODELER Work Phone: [facility] 07-22-2024 14:20-0400 Respiratory rate 18 /min Brissa Chester SEAM SEWER.AGENT BASED MODELER Work Phone: [facility] 07-22-2024 14:20-0400 SaO2% (BldA) [Mass fraction] 98 % Brissa Chester SEAM SEWER.AGENT BASED MODELER Work Phone: [facility] 07-22-2024 14:20-0400 Systolic blood pressure 140 mm[Hg] Brissa Chester SEAM SEWER.AGENT BASED MODELER Work Phone: [facility] 06-27-2024 08:19-0400 Body height 160.[address] Claudine Durán MD Work Phone: [facility] 06-27-2024 08:19-0400 Body weight 58.[address] Claudine Durán MD Work Phone: [facility] 06-20-2024 10:09-0400 Body mass index (BMI) [Ratio] 22.8 kg/m2 Dr. Claudine Durán MD Work Phone: [facility] 06-20-2024 10:09-0400 Body weight 58.[address] Claudine Durán MD Work Phone: [facility] 06-20-2024 10:09-0400 Diastolic blood pressure 74 mm[Hg] Dr. Claudine Durán MD Work Phone: [facility] 06-20-2024 10:09-0400 Heart rate 85 /min Dr. Claudine Durán MD Work Phone: [facility] 06-20-2024 10:09-0400 Respiratory rate 18 /min Dr. Claudine Durán MD Work Phone: 2(646)885-286390 [place] [address] 06-20-2024 10:09-0400 SaO2% (BldA) [Mass fraction] 98 % Dr. Claudine Durán MD Work Phone: 3(744)550-240790 [place] [address] 06-20-2024 10:09-0400 Systolic blood pressure 125 mm[Hg] Dr. Claudine Durán MD Work Phone: 0(582)889-190490 [place] [address] 05-28-2024 08:23-0400 Body mass index (BMI) [Ratio] 21.9 kg/m2 Dr. Claudine Durán MD Work Phone: 2(650)490-560990 [place] [address] 05-28-2024 08:20-0400 Body height 160.[address] Claudine Durán MD Work Phone: 0(162)054-203290 [place] [address] 05-28-2024 08:20-0400 Body weight 56.[address] Claduine Durán MD Work Phone: 4(828)963-190790 [place] [address] 05-28-2024 08:10-0400 Diastolic blood pressure 54 mm[Hg] Dr. Claudine Durán MD Work Phone: 6(638)351-570790 [place] [address] 05-28-2024 08:10-0400 Heart rate 84 /min Dr. Claudine Durán MD Work Phone: 3(993)342-695390 [place] [address] 05-28-2024 08:10-0400 SaO2% (BldA) [Mass fraction] 98 % Dr. Claudine Durán MD Work Phone: 0(260)904-410990 [place] [address] 05-28-2024 08:10-0400 Systolic blood pressure 100 mm[Hg] Dr. Claudine Durán MD Work Phone: 4(074)963-140390 [place] [address] 05-20-2024 12:53-0400 Body height 159.5 cm Jimbo Swanson APRN.[employer]OW[employer]IA MIXER Work Phone: 5(724)044-364651 [place] [address] 05-20-2024 12:53-0400 Body mass index (BMI) [Ratio] 23.23 kg/m2 Jimbo Swanson SEAM SEWER.MUSHR[employer]OWTH [employer]IA MIXER Work Phone: [facility] 05-20-2024 12:53-0400 Body weight 59.1 kg Jimbo Swanson SEAM SEWER.MUSHR[employer]OWTH MED[employer] MIXER Work Phone: [facility] 05-20-2024 12:53-0400 Diastolic blood pressure 65 mm[Hg] Jimbo Swanson SEAM SEWER.MUSHR[employer]OWTH MEDIA MIXER Work Phone: [facility] 05-20-2024 12:53-0400 Heart rate 92 /min Jimbo Swanson SEAM SEWER.M[employer]OWTH [employer] MIXER Work Phone: [facility] 05-20-2024 12:53-0400 Respiratory rate 16 /min Jimbo Swanson SEAM SEWER.[employer]OW[employer] MIXER Work Phone: [facility] 05-20-2024 12:53-0400 Systolic blood pressure 113 mm[Hg] Jimbo Swanson SEAM SEWER.M[employer]OWTH [employer] MIXER Work Phone: [facility] 05-05-2024 08:34-0400 Diastolic blood pressure 71 mm[Hg] Adalid Maret SEAM SEWER.AGENT BASED MODELER Work Phone: [facility] 05-05-2024 08:34-0400 Heart rate 82 /min Adalid Maret SEAM SEWER.AGENT BASED MODELER Work Phone: [facility] 05-05-2024 08:34-0400 Systolic blood pressure 139 mm[Hg] Adalid Maret SEAM SEWER.AGENT BASED MODELER Work Phone: [facility] 04-30-2024 13:04-0400 Body height 160 cm [facility] 04-30-2024 13:04-0400 Body mass index (BMI) [Ratio] 23.21 kg/m2 [facility] 04-30-2024 13:04-0400 Body weight 59.42 kg [facility] 04-30-2024 13:04-0400 Diastolic blood pressure 63 mm[Hg] [facility] 04-30-2024 13:04-0400 Heart rate 88 /min [facility] 04-30-2024 13:04-0400 Respiratory rate 16 /min [facility] 04-30-2024 13:04-0400 Systolic blood pressure 115 mm[Hg] [facility] 04-21-2024 10:44-0500 Body height 160 cm Geno Hart MD Work Phone: [facility] 04-21-2024 10:44-0500 Body mass index (BMI) [Ratio] 23.82 kg/m2 Geno Hart MD Work Phone: [facility] 04-21-2024 10:44-0500 Body temperature 97.9 [degF] Geno Hart MD Work Phone: [facility] 04-21-2024 10:44-0500 Body weight 61 kg Geno Hart MD Work Phone: [facility] 04-21-2024 10:44-0500 Diastolic blood pressure 84 mm[Hg] Geno Hart MD Work Phone: [facility] 04-21-2024 10:44-0500 Heart rate 103 /min Geno Hart MD Work Phone: [facility] 04-21-2024 10:44-0500 Respiratory rate 18 /min Geno Hart MD Work Phone: [facility] 04-21-2024 10:44-0500 SaO2% (BldA) [Mass fraction] 97 % Geno Hart MD Work Phone: [facility] 04-21-2024 10:44-0500 Systolic blood pressure 146 mm[Hg] Geno Hart MD Work Phone: [facility] 03-21-2024 09:28-0500 Body height 160 cm Juvencio Saeed MD Work Phone: [facility] 03-21-2024 09:28-0500 Body mass index (BMI) [Ratio] 23.03 kg/m2 Juvencio Saeed MD Work Phone: [facility] 03-21-2024 09:28-0500 Body weight 58.97 kg Juvencio Saeed MD Work Phone: [facility] 03-21-2024 09:28-0500 Diastolic blood pressure 77 mm[Hg] Juvencio Saeed MD Work Phone: [facility] 03-21-2024 09:28-0500 Heart rate 96 /min Juvencio Saeed MD Work Phone: [facility] 03-21-2024 09:28-0500 Respiratory rate 18 /min Juvencio Saeed MD Work Phone: [facility] 03-21-2024 09:28-0500 SaO2% (BldA) [Mass fraction] 96 % Juvencio Saeed MD Work Phone: [facility] Comment on above: RA 03-21-2024 09:28-0500 Systolic blood pressure 141 mm[Hg] Juvencio Saeed MD Work Phone: [facility] 02-29-2024 16:45-0500 Body mass index (BMI) [Ratio] 22.92 kg/m2 Claudine Durán MD Work Phone: [facility] 02-29-2024 16:45-0500 Body temperature 98.8 [degF] Claudine Durán MD Work Phone: [facility] 02-29-2024 16:45-0500 Body weight 58.7 kg Claudine Durán MD Work Phone: [facility] 02-29-2024 16:45-0500 Diastolic blood pressure 86 mm[Hg] Claudine Durán MD Work Phone: [facility] 02-29-2024 16:45-0500 Heart rate 85 /min Claudine Durán MD Work Phone: [facility] 02-29-2024 16:45-0500 Respiratory rate 16 /min Claudine Durán MD Work Phone: [facility] 02-29-2024 16:45-0500 SaO2% (BldA) [Mass fraction] 97 % Claudine Durán MD Work Phone: [facility] 02-29-2024 16:45-0500 Systolic blood pressure 138 mm[Hg] Claudine Durán MD Work Phone: [facility] 01-02-2024 09:09-0500 Body height 160 cm Ines Drew MD Work Phone: [facility] 01-02-2024 09:09-0500 Body mass index (BMI) [Ratio] 21.97 kg/m2 Ines Drew MD Work Phone: [facility] 01-02-2024 09:09-0500 Body weight 56.25 kg Ines Drew MD Work Phone: [facility] 01-02-2024 09:09-0500 Diastolic blood pressure 57 mm[Hg] Ines Drew MD Work Phone: [facility] 01-02-2024 09:09-0500 Heart rate 81 /min Ines Drew MD Work Phone: [facility] 01-02-2024 09:09-0500 SaO2% (BldA) [Mass fraction] 97 % Ines Drew MD Work Phone: [facility] 01-02-2024 09:09-0500 Systolic blood pressure 124 mm[Hg] Ines Drew MD Work Phone: [facility] 12-18-2023 11:02-0400 Body height 160 cm Geno Hart MD Work Phone: [facility] 12-18-2023 11:02-0400 Body mass index (BMI) [Ratio] 22.3 kg/m2 Geno Hart MD Work Phone: [facility] 12-18-2023 11:02-0400 Body temperature 98.71 [degF] Geno Hart MD Work Phone: [facility] 12-18-2023 11:02-0400 Body weight 57.11 kg Geno Hart MD Work Phone: [facility] 12-18-2023 11:02-0400 Diastolic blood pressure 75 mm[Hg] Geno Hart MD Work Phone: [facility] 12-18-2023 11:02-0400 Heart rate 84 /min Geno Hart MD Work Phone: [facility] 12-18-2023 11:02-0400 Respiratory rate 16 /min Geno Hart MD Work Phone: [facility] 12-18-2023 11:02-0400 SaO2% (BldA) [Mass fraction] 98 % Geno Hart MD Work Phone: [facility] 12-18-2023 11:02-0400 Systolic blood pressure 146 mm[Hg] Geno Hart MD Work Phone: [facility] 10-18-2023 10:03-0400 Body height 160 cm Bibi Alegria SEAM SEWER.AGENT BASED MODELER Work Phone: [facility] 10-18-2023 10:03-0400 Body mass index (BMI) [Ratio] 20.62 kg/m2 Bibi Alegria SEAM SEWER.AGENT BASED MODELER Work Phone: [facility] 10-18-2023 10:03-0400 Body weight 52.8 kg Bibi Alegria SEAM SEWER.AGENT BASED MODELER Work Phone: [facility] 10-18-2023 10:03-0400 Diastolic blood pressure 60 mm[Hg] Bibi Alegria SEAM SEWER.AGENT BASED MODELER Work Phone: [facility] 10-18-2023 10:03-0400 Heart rate 82 /min Bibi Alegria SEAM SEWER.AGENT BASED MODELER Work Phone: [facility] 10-18-2023 10:03-0400 SaO2% (BldA) [Mass fraction] 99 % Bibi Alegria SEAM SEWER.AGENT BASED MODELER Work Phone: [facility] 10-18-2023 10:03-0400 Systolic blood pressure 120 mm[Hg] Bibi Alegria SEAM SEWER.AGENT BASED MODELER Work Phone: [facility] 10-11-2023 13:05-0400 Body mass index (BMI) [Ratio] 20.54 kg/m2 Jimbo Swanson SEAM SEWER.MUSHROOM GROWTH MEDIA MIXER Work Phone: [facility] 10-11-2023 13:05-0400 Body weight 52.6 kg Jimbo Swanson SEAM SEWER.MUSHRO[employer]OWTH MEDIA MIXER Work Phone: [facility] 10-11-2023 13:05-0400 Diastolic blood pressure 62 mm[Hg] Jimbo Swanson SEAM SEWER.MUSHRO[employer]OWTH MEDIA MIXER Work Phone: [facility] 10-11-2023 13:05-0400 Heart rate 68 /min Jimbo Swanson SEAM SEWER.MUSHRO[employer]OWTH MEDIA MIXER Work Phone: [facility] 10-11-2023 13:05-0400 Respiratory rate 16 /min Jimbo Swanson SEAM SEWER.MUSHROOM GROWTH MEDIA MIXER Work Phone: [facility] 10-11-2023 13:05-0400 Systolic blood pressure 107 mm[Hg] Jimbo Swanson SEAM SEWER.MUS[employer]OWTH MEDIA MIXER Work Phone: [facility] 08-28-2023 08:48-0400 Body height 160 cm Geno Hart MD Work Phone: [facility] 08-28-2023 08:48-0400 Body mass index (BMI) [Ratio] 23.45 kg/m2 Geno Hart MD Work Phone: [facility] 08-28-2023 08:48-0400 Body temperature 98.29 [degF] Geno Hart MD Work Phone: [facility] 08-28-2023 08:48-0400 Body weight 60.06 kg Geno Hart MD Work Phone: [facility] 08-28-2023 08:48-0400 Diastolic blood pressure 69 mm[Hg] Geno Hart MD Work Phone: [facility] 08-28-2023 08:48-0400 Heart rate 79 /min Geno Hart MD Work Phone: [facility] 08-28-2023 08:48-0400 Respiratory rate 18 /min Geno Hart MD Work Phone: [facility] 08-28-2023 08:48-0400 SaO2% (BldA) [Mass fraction] 98 % Geno Hart MD Work Phone: [facility] 08-28-2023 08:48-0400 Systolic blood pressure 129 mm[Hg] Geno Hart MD Work Phone: [facility] 08-27-2023 08:25-0400 Body height 160 cm William Messina DO Work Phone: [facility] 08-27-2023 08:25-0400 Body mass index (BMI) [Ratio] 22.67 kg/m2 William Messina DO Work Phone: [facility] 08-27-2023 08:25-0400 Body weight 58.06 kg William Messina DO Work Phone: [facility] 08-27-2023 08:25-0400 Diastolic blood pressure 68 mm[Hg] William Messina DO Work Phone: [facility] 08-27-2023 08:25-0400 Heart rate 81 /min William Messina DO Work Phone: [facility] 08-27-2023 08:25-0400 SaO2% (BldA) [Mass fraction] 99 % William Messina DO Work Phone: [facility] 08-27-2023 08:25-0400 Systolic blood pressure 116 mm[Hg] William Messina DO Work Phone: [facility] 08-22-2023 10:38-0400 Body mass index (BMI) [Ratio] 23.19 kg/m2 Claudine Durán MD Work Phone: [facility] 08-22-2023 10:38-0400 Body temperature 96.01 [degF] Claudine Durán MD Work Phone: [facility] 08-22-2023 10:38-0400 Body weight 59.38 kg Claudine Durán MD Work Phone: [facility] 08-22-2023 10:38-0400 Diastolic blood pressure 72 mm[Hg] Claudine Durán MD Work Phone: [facility] 08-22-2023 10:38-0400 Heart rate 70 /min Claudine Durán MD Work Phone: [facility] 08-22-2023 10:38-0400 Respiratory rate 18 /min Claudine Durán MD Work Phone: [facility] 08-22-2023 10:38-0400 SaO2% (BldA) [Mass fraction] 98 % Claudine Durán MD Work Phone: [facility] 08-22-2023 10:38-0400 Systolic blood pressure 116 mm[Hg] Claudine Durán MD Work Phone: [facility] 08-08-2023 14:39-0400 Body mass index (BMI) [Ratio] 22.32 kg/m2 Twyla Mason SEAM SEWER.AGENT BASED MODELER Work Phone: [facility] 08-08-2023 14:39-0400 Body weight 57.15 kg Twyla Mason SEAM SEWER.AGENT BASED MODELER Work Phone: [facility] 08-08-2023 14:39-0400 Diastolic blood pressure 72 mm[Hg] Twyla Mason SEAM SEWER.AGENT BASED MODELER Work Phone: [facility] 08-08-2023 14:39-0400 Heart rate 78 /min Twyla Mason SEAM SEWER.AGENT BASED MODELER Work Phone: [facility] 08-08-2023 14:39-0400 Systolic blood pressure 136 mm[Hg] Twyla Mason SEAM SEWER.AGENT BASED MODELER Work Phone: [facility] 07-10-2023 14:22-0400 Body mass index (BMI) [Ratio] 21.79 kg/m2 Jimbo Swanson SEAM SEWER.MUSHROOM GROWTH MEDIA MIXER Work Phone: [facility] 07-10-2023 14:22-0400 Body weight 55.79 kg Jimbo Swanson SEAM SEWER.MUSHROOM GROWTH MEDIA MIXER Work Phone: [facility] 07-10-2023 14:22-0400 Diastolic blood pressure 66 mm[Hg] Jimbo Swanson SEAM SEWER.MUSHROOM GROWTH MEDIA MIXER Work Phone: [facility] 07-10-2023 14:22-0400 Heart rate 94 /min Jimbo Swanson SEAM SEWER.MUSHROOM GROWTH MEDIA MIXER Work Phone: [facility] 07-10-2023 14:22-0400 Respiratory rate 16 /min Jimbo Sans SEAM SEWER.MUSHROOM GROWTH MEDIA MIXER Work Phone: [facility] 07-10-2023 14:22-0400 Systolic blood pressure 119 mm[Hg] Jimbo Swanson SEAM SEWER.MUSHROOM GROWTH MEDIA MIXER Work Phone: [facility] 06-05-2023 14:44-0400 Body mass index (BMI) [Ratio] 21.91 kg/m2 Claudine Durán MD Work Phone: [facility] 06-05-2023 14:44-0400 Body temperature 98.2 [degF] Claudine Durán MD Work Phone: [facility] 06-05-2023 14:44-0400 Body weight 56.11 kg Claudine Durán MD Work Phone: [facility] 06-05-2023 14:44-0400 Diastolic blood pressure 74 mm[Hg] Claudine Durán MD Work Phone: [facility] 06-05-2023 14:44-0400 Heart rate 93 /min Claudine Durán MD Work Phone: [facility] 06-05-2023 14:44-0400 Respiratory rate 18 /min Claudine Durán MD Work Phone: [facility] 06-05-2023 14:44-0400 SaO2% (BldA) [Mass fraction] 96 % Claudine Durán MD Work Phone: [facility] 06-05-2023 14:44-0400 Systolic blood pressure 122 mm[Hg] Claudine Durán MD Work Phone: [facility] 04-30-2023 12:45-0400 Body temperature 97.6 [degF] Dr. Claudine Durán Work Phone: [facility] 04-30-2023 12:45-0400 Diastolic blood pressure 61 mm[Hg] Dr. Claudine Durán Work Phone: 8(070)047-928690 [place] [address] 04-30-2023 12:45-0400 Heart rate 97 /min Dr. Claudine Durán Work Phone: 8(074)369-142690 [place] [address] 04-30-2023 12:45-0400 Respiratory rate 16 /min Dr. Claudine Durán Work Phone: 9(792)522-427690 [place] [address] 04-30-2023 12:45-0400 SaO2% (BldA) [Mass fraction] 95 % Dr. Claudine Durán Work Phone: 1(174)998-006790 [place] [address] 04-30-2023 12:45-0400 Systolic blood pressure 102 mm[Hg] Dr. Claudine Durán Work Phone: 9(745)015-981790 [place] [address] 04-25-2023 12:25-0500 Body height 160.[address] Claudine Durán Work Phone: 5(565)715-691490 [place] [address] 04-25-2023 12:25-0500 Body weight 54.[address] Claudine Durán Work Phone: 6(791)480-723690 [place] [address] 04-24-2023 12:11-0500 Body mass index (BMI) [Ratio] 21.2 kg/m2 Dr. Claudine Durán Work Phone: 4(332)495-585390 [place] [address] 04-16-2023 07:18-0500 Heart rate 94 /min Dr. Claudine Durán Work Phone: 7(595)444-233190 [place] [address] 04-16-2023 07:18-0500 Respiratory rate 18 /min Dr. Claudine Durán Work Phone: 2(646)430-865690 [place] [address] 04-16-2023 07:18-0500 SaO2% (BldA) [Mass fraction] 98 % Dr. Claudine Durán Work Phone: 0(150)276-919090 [place] [address] 04-15-2023 14:36-0500 Body temperature 98.5 [degF] Dr. Claudine Durán Work Phone: 8(124)382-648390 [place] [address] 04-15-2023 14:36-0500 Diastolic blood pressure 61 mm[Hg] Dr. Claudine Durán Work Phone: 0(449)176-936765 [place] [address] 04-15-2023 14:36-0500 Systolic blood pressure 106 mm[Hg] Dr. Claudine Durán Work Phone: 7(852)475-368690 [place] [address] 04-11-2023 15:11-0500 Body height 160.[address] Claudine Durán Work Phone: 6(193)077-426490 [place] [address] 04-11-2023 15:11-0500 Body weight 58.[address] Claudine Durán Work Phone: 7(071)066-789990 [place] [address] 04-10-2023 14:06-0500 Body mass index (BMI) [Ratio] 22.9 kg/m2 Dr. Claudine Durán Work Phone: 8(054)587-512290 [place] [address] 04-05-2023 08:40-0500 Body temperature 98.1 [degF] Dr. Claudine Durán Work Phone: 9(878)433-101890 [place] [address] 04-05-2023 08:40-0500 Diastolic blood pressure 65 mm[Hg] Dr. Claudine Durán Work Phone: 8(046)050-748190 [place] [address] 04-05-2023 08:40-0500 Heart rate 98 /min Dr. Claudine Durán Work Phone: 6(690)090-740390 [place] [address] 04-05-2023 08:40-0500 Respiratory rate 16 /min Dr. Claudine Durán Work Phone: 4(295)486-225190 [place] [address] 04-05-2023 08:40-0500 SaO2% (BldA) [Mass fraction] 96 % Dr. Claudine Durán Work Phone: 0(556)570-775590 [place] [address] 04-05-2023 08:40-0500 Systolic blood pressure 117 mm[Hg] Dr. Claudine Durán Work Phone: 6(490)771-292490 [place] [address] 04-05-2023 01:48-0500 Body mass index (BMI) [Ratio] 21.5 kg/m2 Dr. Claudine Durán Work Phone: 1(499)702-533590 [place] [address] 04-05-2023 01:48-0500 Body weight 55.[address] Claudine Durán Work Phone: 1(322)245-518790 [place] [address] 04-04-2023 13:52-0500 Body height 160.[address] Claudine Durán Work Phone: 2(970)818-628090 [place] [address] 03-31-2023 20:00-0500 Diastolic blood pressure 50 mm[Hg] Dr. Claudine Durán Work Phone: 3(312)667-083690 [place] [address] 03-31-2023 20:00-0500 Heart rate 77 /min Dr. Claudine Durán Work Phone: 2(577)062-902590 [place] [address] 03-31-2023 20:00-0500 Respiratory rate 17 /min Dr. Claudine Durán Work Phone: 8(079)883-006390 [place] [address] 03-31-2023 20:00-0500 SaO2% (BldA) [Mass fraction] 98 % Dr. Claudine Durán Work Phone: 2(748)931-817190 [place] [address] 03-31-2023 20:00-0500 Systolic blood pressure 108 mm[Hg] Dr. Claudine Durán Work Phone: 7(700)236-933290 [place] [address] 03-31-2023 16:48-0500 Body height 160.[address] Claudine Durán Work Phone: 7(247)372-100890 [place] [address] 03-31-2023 16:48-0500 Body mass index (BMI) [Ratio] 23.4 kg/m2 Dr. Claudine Durán Work Phone: 0(462)740-019990 [place] [address] 03-31-2023 16:48-0500 Body temperature 98.3 [degF] Dr. Claudine Durán Work Phone: 7(236)571-168990 [place] [address] 03-31-2023 16:48-0500 Body weight 60.[address] Claudine Durán Work Phone: 6(881)813-361490 [place] [address] 03-28-2023 20:54-0500 Diastolic blood pressure 79 mm[Hg] Dr. Claudine Durán Work Phone: 1(971)289-317390 [place] [address] 03-28-2023 20:54-0500 Heart rate 91 /min Dr. Claudine Durán Work Phone: 8(340)804-837665 [place] [address] 03-28-2023 20:54-0500 Respiratory rate 19 /min Dr. Claudine Durán Work Phone: 6(240)016-471390 [place] [address] 03-28-2023 20:54-0500 SaO2% (BldA) [Mass fraction] 97 % Dr. Claudine Durán Work Phone: 0(432)209-021665 [place] [address] 03-28-2023 20:54-0500 Systolic blood pressure 121 mm[Hg] Dr. Claudine Durán Work Phone: 8(172)084-239690 [place] [address] 03-28-2023 16:33-0500 Body height 160.[address] Claudine Durán Work Phone: 3(463)673-376390 [place] [address] 03-28-2023 16:33-0500 Body mass index (BMI) [Ratio] 23.7 kg/m2 Dr. Claudine Durán Work Phone: 7(420)567-257490 [place] [address] 03-28-2023 16:33-0500 Body temperature 97.3 [degF] Dr. Claudine Durán Work Phone: 1(475)444-224690 [place] [address] 03-28-2023 16:33-0500 Body weight 60.[address] Claudine Durán Work Phone: 5(536)617-838390 [place] [address] 03-27-2023 13:43-0500 Heart rate 101 /min Dr. Claudine Durán Work Phone: 8(442)774-257590 [place] [address] 03-27-2023 13:43-0500 Respiratory rate 19 /min Dr. Claudine Durán Work Phone: 4(278)125-994990 [place] [address] 03-27-2023 10:00-0500 Body temperature 98.2 [degF] Dr. Claudine Durán Work Phone: 2(053)871-011590 [place] [address] 03-27-2023 10:00-0500 Diastolic blood pressure 63 mm[Hg] Dr. Claudine Durán Work Phone: 6(924)995-068790 [place] [address] 03-27-2023 10:00-0500 SaO2% (BldA) [Mass fraction] 94 % Dr. Claudine Durán Work Phone: [facility] 03-27-2023 10:00-0500 Systolic blood pressure 105 mm[Hg] Dr. Claudine Durán Work Phone: [facility] 03-27-2023 05:41-0500 Body mass index (BMI) [Ratio] 22.6 kg/m2 Dr. Claudine Durán Work Phone: [facility] 03-27-2023 05:41-0500 Body weight 58.[address] Claudine Durán Work Phone: [facility] 03-26-2023 15:00-0500 Diastolic blood pressure 75 mm[Hg] [facility] 03-26-2023 15:00-0500 Heart rate 87 /min [facility] 03-26-2023 15:00-0500 Respiratory rate 19 /min [facility] 03-26-2023 15:00-0500 SaO2% (BldA) [Mass fraction] 95 % [facility] 03-26-2023 15:00-0500 Systolic blood pressure 128 mm[Hg] [facility] 03-26-2023 10:48-0500 Body height 165.1 cm [facility] 03-26-2023 10:48-0500 Body mass index (BMI) [Ratio] 23.3 kg/m2 [facility] 03-26-2023 10:48-0500 Body temperature 97.3 [degF] [facility] 03-26-2023 10:48-0500 Body weight 63.5 kg [facility] 03-19-2023 16:51-0500 Diastolic blood pressure 65 mm[Hg] [facility] 03-19-2023 16:51-0500 Systolic blood pressure 117 mm[Hg] [facility] 03-19-2023 10:07-0500 Body height 165.1 cm [facility] 03-19-2023 10:07-0500 Body mass index (BMI) [Ratio] 20.3 kg/m2 [facility] 03-19-2023 10:07-0500 Body temperature 98.3 [degF] [facility] 03-19-2023 10:07-0500 Body weight 55.48 kg [facility] 03-19-2023 10:07-0500 Heart rate 111 /min [facility] 03-19-2023 10:07-0500 Respiratory rate 16 /min [facility] 03-19-2023 10:07-0500 SaO2% (BldA) [Mass fraction] 100 % [facility] 02-07-2023 10:36-0500 Body temperature 98.6 [degF] Adri Callow SEAM SEWER.AGENT BASED MODELER Work Phone: [facility] 02-07-2023 10:36-0500 Body weight 59.69 kg Adri Callow SEAM SEWER.AGENT BASED MODELER Work Phone: [facility] 02-07-2023 10:36-0500 Diastolic blood pressure 82 mm[Hg] Adri Callow SEAM SEWER.AGENT BASED MODELER Work Phone: [facility] 02-07-2023 10:36-0500 Heart rate 87 /min Adri Callow SEAM SEWER.AGENT BASED MODELER Work Phone: [facility] 02-07-2023 10:36-0500 Respiratory rate 18 /min Adri Callow SEAM SEWER.AGENT BASED MODELER Work Phone: [facility] 02-07-2023 10:36-0500 SaO2% (BldA) [Mass fraction] 98 % Adri Callow SEAM SEWER.AGENT BASED MODELER Work Phone: [facility] 02-07-2023 10:36-0500 Systolic blood pressure 134 mm[Hg] Adri Callow SEAM SEWER.AGENT BASED MODELER Work Phone: [facility] 01-04-2023 10:33-0500 Body weight 58.06 kg Jimbo Swanson SEAM SEWER.MUSHROOM GROWTH MEDIA MIXER Work Phone: [facility] 01-04-2023 10:33-0500 Diastolic blood pressure 75 mm[Hg] Jimbo Swanson SEAM SEWER.MUSHROOM GROWTH MEDIA MIXER Work Phone: [facility] 01-04-2023 10:33-0500 Heart rate 77 /min Jimbo Swanson SEAM SEWER.MUSHROOM GROWTH MEDIA MIXER Work Phone: [facility] 01-04-2023 10:33-0500 Respiratory rate 16 /min Jimbo Swanson SEAM SEWER.MUSHROOM GROWTH MEDIA MIXER Work Phone: [facility] 01-04-2023 10:33-0500 Systolic blood pressure 128 mm[Hg] Jimbo Swanson SEAM SEWER.MUSHROOM GROWTH MEDIA MIXER Work Phone: [facility] 10-27-2022 09:03-0400 Body weight 59.42 kg Jimbo Swanson SEAM SEWER.MUSHROOM GROWTH MEDIA MIXER Work Phone: [facility] 10-27-2022 09:03-0400 Diastolic blood pressure 66 mm[Hg] Jimbo Swanson SEAM SEWER.MUSHROOM GROWTH MEDIA MIXER Work Phone: [facility] 10-27-2022 09:03-0400 Heart rate 76 /min Jimbo Swanson SEAM SEWER.MUSHROOM GROWTH MEDIA MIXER Work Phone: [facility] 10-27-2022 09:03-0400 Respiratory rate 16 /min Jimbo Swanson SEAM SEWER.MUSHROOM GROWTH MEDIA MIXER Work Phone: [facility] 10-27-2022 09:03-0400 Systolic blood pressure 119 mm[Hg] Jimbo Swanson SEAM SEWER.MUSHROOM GROWTH MEDIA MIXER Work Phone: [facility] 08-29-2022 09:26-0400 Body height 162.6 cm Rachelle Schulte SEAM SEWER.AGENT BASED MODELER Work Phone: [facility] 08-29-2022 09:26-0400 Body weight 58.51 kg Rachelle Schulte SEAM SEWER.AGENT BASED MODELER Work Phone: [facility] 08-29-2022 09:26-0400 Diastolic blood pressure 78 mm[Hg] Rachelle Schulte SEAM SEWER.AGENT BASED MODELER Work Phone: [facility] 08-29-2022 09:26-0400 Heart rate 75 /min Rachelle Schulte SEAM SEWER.AGENT BASED MODELER Work Phone: [facility] 08-29-2022 09:26-0400 SaO2% (BldA) [Mass fraction] 98 % Rachelle Schulte SEAM SEWER.AGENT BASED MODELER Work Phone: [facility] 08-29-2022 09:26-0400 Systolic blood pressure 142 mm[Hg] Rachelle Schulte SEAM SEWER.AGENT BASED MODELER Work Phone: [facility] 07-20-2022 09:28-0400 Body weight 58.06 kg Florence Collins MD Work Phone: [facility] 07-20-2022 09:28-0400 Diastolic blood pressure 72 mm[Hg] Florence Collins MD Work Phone: [facility] 07-20-2022 09:28-0400 Heart rate 50 /min Florence Collins MD Work Phone: [facility] 07-20-2022 09:28-0400 Respiratory rate 17 /min Florence Collins MD Work Phone: [facility] 07-20-2022 09:28-0400 SaO2% (BldA) [Mass fraction] 100 % Florence Collins MD Work Phone: [facility] 07-20-2022 09:28-0400 Systolic blood pressure 122 mm[Hg] Florence Collins MD Work Phone: [facility] 03-13-2022 10:13-0500 Body temperature 96.69 [degF] Claudine Durán MD Work Phone: [facility] 03-13-2022 10:13-0500 Body weight 59.56 kg Claudine Durán MD Work Phone: [facility] 03-13-2022 10:13-0500 Diastolic blood pressure 68 mm[Hg] Claudine Durán MD Work Phone: [facility] 03-13-2022 10:13-0500 Heart rate 75 /min Claudine Durán MD Work Phone: [facility] 03-13-2022 10:13-0500 Respiratory rate 18 /min Claudine Durán MD Work Phone: [facility] 03-13-2022 10:13-0500 SaO2% (BldA) [Mass fraction] 100 % Claudine Durán MD Work Phone: [facility] 03-13-2022 10:13-0500 Systolic blood pressure 112 mm[Hg] Claudine Durán MD Work Phone: [facility] 11-29-2021 10:07-0400 Body weight 58.51 kg Florence Collins MD Work Phone: [facility] 11-29-2021 10:07-0400 Diastolic blood pressure 76 mm[Hg] Florence Collins MD Work Phone: [facility] 11-29-2021 10:07-0400 Heart rate 92 /min Florence Collins MD Work Phone: [facility] 11-29-2021 10:07-0400 Respiratory rate 18 /min Florence Collins MD Work Phone: [facility] 11-29-2021 10:07-0400 SaO2% (BldA) [Mass fraction] 97 % Florence Collins MD Work Phone: [facility] 11-29-2021 10:07-0400 Systolic blood pressure 122 mm[Hg] Florence Collins MD Work Phone: [facility] 11-10-2021 09:22-0400 Body weight 60.33 kg Jimbo Swanson SEAM SEWER.MUSHROOM GROWTH MEDIA MIXER Work Phone: [facility] 11-10-2021 09:22-0400 Diastolic blood pressure 80 mm[Hg] Jimbo Swanson SEAM SEWER.MUSHROOM GROWTH MEDIA MIXER Work Phone: [facility] 11-10-2021 09:22-0400 Heart rate 76 /min Jimbo Swanson SEAM SEWER.MUSHROOM GROWTH MEDIA MIXER Work Phone: [facility] 11-10-2021 09:22-0400 Respiratory rate 16 /min Jimbo Swanson SEAM SEWER.MUSHROOM GROWTH MEDIA MIXER Work Phone: [facility] 11-10-2021 09:22-0400 Systolic blood pressure 152 mm[Hg] Jimbo Swanson SEAM SEWER.MUSHROOM GROWTH MEDIA MIXER Work Phone: [facility] 09-20-2021 13:45-0400 Body weight 58.51 kg Jimbo Sans SEAM SEWER.MUSHROOM GROWTH MEDIA MIXER Work Phone: [facility] 09-20-2021 13:45-0400 Diastolic blood pressure 64 mm[Hg] Jimbo Sans SEAM SEWER.MUSHROOM GROWTH MEDIA MIXER Work Phone: [facility] 09-20-2021 13:45-0400 Heart rate 85 /min Jimbo Sans SEAM SEWER.MUSHROOM GROWTH MEDIA MIXER Work Phone: [facility] 09-20-2021 13:45-0400 SaO2% (BldA) [Mass fraction] 96 % Jimbo aSns SEAM SEWER.MUSHROOM GROWTH MEDIA MIXER Work Phone: [facility] 09-20-2021 13:45-0400 Systolic blood pressure 128 mm[Hg] Jimbo Sans SEAM SEWER.MUSHROOM GROWTH MEDIA MIXER Work Phone: [facility] 08-12-2021 11:01-0400 Body height 162.6 cm William Messina DO Work Phone: [facility] 08-12-2021 11:01-0400 Body weight 59.42 kg William Messina DO Work Phone: [facility] 08-12-2021 11:01-0400 Diastolic blood pressure 74 mm[Hg] William Messina DO Work Phone: [facility] 08-12-2021 11:01-0400 Heart rate 72 /min William Messina DO Work Phone: [facility] 08-12-2021 11:01-0400 SaO2% (BldA) [Mass fraction] 99 % William Messina DO Work Phone: [facility] 08-12-2021 11:01-0400 Systolic blood pressure 130 mm[Hg] William Messina DO Work Phone: [facility] 07-11-2021 08:10-0400 Body weight 58.06 kg Claudine Durán MD Work Phone: [facility] 07-11-2021 08:10-0400 Diastolic blood pressure 74 mm[Hg] Claudine Durán MD Work Phone: [facility] 07-11-2021 08:10-0400 Heart rate 76 /min Claudine Durán MD Work Phone: [facility] 07-11-2021 08:10-0400 Systolic blood pressure 122 mm[Hg] Claudine Durán MD Work Phone: [facility] 2021 14:57-0400 Body height 162.6 cm Mirian Andujar MD Work Phone: [facility] 2021 14:57-0400 Body weight 58.33 kg Mirian Andujar MD Work Phone: [facility] 2021 14:57-0400 Diastolic blood pressure 67 mm[Hg] Mirian Andujar MD Work Phone: [facility] 2021 14:57-0400 Heart rate 98 /min Mirian Andujar MD Work Phone: [facility] 2021 14:57-0400 Respiratory rate 14 /min Mirian Andujar MD Work Phone: [facility] 2021 14:57-0400 SaO2% (BldA) [Mass fraction] 99 % Mirian Andujar MD Work Phone: [facility] 2021 14:57-0400 Systolic blood pressure 144 mm[Hg] Mirian Andujar MD Work Phone: [facility] 03-14-2021 08:08-0500 Body height 162.6 cm Claudine Durán MD Work Phone: [facility] 03-14-2021 08:08-0500 Body temperature 97.5 [degF] Claudine Durán MD Work Phone: [facility] 03-14-2021 08:08-0500 Body weight 58.06 kg Claudine Durán MD Work Phone: [facility] 03-14-2021 08:08-0500 Diastolic blood pressure 62 mm[Hg] Claudine Durán MD Work Phone: [facility] 03-14-2021 08:08-0500 Heart rate 87 /min Claudine Durán MD Work Phone: [facility] 03-14-2021 08:08-0500 Respiratory rate 14 /min Claudine Durán MD Work Phone: [facility] 03-14-2021 08:08-0500 SaO2% (BldA) [Mass fraction] 99 % Claudine Durán MD Work Phone: [facility] 03-14-2021 08:08-0500 Systolic blood pressure 118 mm[Hg] Claudine Durán MD Work Phone: [facility] Encounters Encounter Date Encounter Type Care Provider Facility Start: 11-08-2024 End: 11-11-2024 ambulatory Bob Solano Facility:[facility] Start: 11-08-2024 End: 11-08-2024 ambulatory CLAUDINE DURÁN Facility:[facility] Start: 10-24-2024 End: 10-24-2024 Office outpatient visit 25 minutes Claudine Durán MD Work Phone: [facility] [place] Comment on above: Herpes zoster withou t complication (Primary Dx); Skin tear of left upper arm without complication, initial encounter; Contusion of right thumb without damage to nail, subsequent encounter; Chronic anticoagulation; Closed fracture of left wrist, sequela; Contusion of right upper extremity, subsequent encounter Start: 10-24-2024 End: 10-24-2024 ambulatory CLAUDINE DURÁN Facility:[facility] Start: 10-23-2024 End: 10-24-2024 Telephone encounter Claudine Durán MD Work Phone: [facility] [place] Comment on above: Orders Start: 10-19-2024 End: 10-19-2024 Telephone encounter Russ Velasquez DO Work Phone: [facility] Start: 10-19-2024 End: 10-19-2024 Dr. Claudine Durán MD Work Phone: -Emergency Department Work Phone: Start: 10-19-2024 End: 10-19-2024 Emergency department patient visit Dr. Claudine Durán MD Work Phone: -Emergency Department Start: 10-16-2024 End: 10-16-2024 Telephone encounter Jimbo Swanson APRN.CNS Work Phone: [facility] [place] Comment on above: home health calling Start: 10-16-2024 ambulatory Claudine D Talampas Facilit y:[facility] Start: 10-16-2024 Zaynab Garcia Cabrera - [facility] Start: 10-14-2024 End: 10-14-[address] Claudine Durán MD Work Phone: -[facility] Start: 10-14-2024 End: 10-14-2024 Fadia CORRIGAN -[facility] Work Phone: Start: 10-13-2024 ambulatory Claudine D Talampas Facilit y:[facility] Start: 10-13-2024 Zaynab Garcia L - [place] Start: 10-09-2024 ambulatory Claudine D Talampas Facilit y:[facility] Start: 10-09-2024 Zaynab Garcia L - [place] Start: 10-07-2024 ambulatory Claudine D Talampas Facilit y:[facility] Start: 10-07-2024 Zaynab Garcia L - [place] Start: 10-06-2024 ambulatory Claudine D Talampas Facilit y:[facility] Start: 10-06-2024 Zaynab Garcia Cabrera - [facility] Start: 10-02-2024 ambulatory Claudine D Talampas Facilit y:[facility] Start: 10-02-2024 Registered Referred Zaynab GarciaL - [place] Start: 10-02-2024 Zaynab Garcia Cabrera [facility] Start: 09-30-2024 End: 09-30-[address] Claudine Durán MD Work Phone: -[facility] Start: 09-30-2024 End: 09-30-2024 Dr. Zaynab Pina MD -[facility] Work Phone: Start: 09-29-2024 ambulatory Claudine D Talampas Facilit y:[facility] Start: 09-29-2024 Registered Referred Zaynab GarciaCabrera [facility] Start: [facility]-29-20[facility] Start: 09-29-2024 ambulatory KELSEY PEÑA Facility: [facility] Start: 09-25-2024 ambulatory Claudine D Talampas Facilit y:[facility] Start: 09-25-2024 Registered Referred Zaynab GarciaCabrera [facility] Start: 09-25-2024 Zaynab Garcia Cabrera - [facility] Start: 09-22-2024 ambulatory Claudine D Talampas Facilit y:[facility] Start: 09-22-2024 Registered Referred Zaynab GarciaCabrera [facility] Start: 09-22-2024 Zaynab Garcia Cabrera - [facility] Start: 09-18-2024 ambulatory Claudine D Talampas Facilit y:[facility] Start: 09-18-2024 Registered Referred Zaynab GarciaCabrera [facility] Start: 09-18-2024 Zaynab Garcia Cabrera [facility] Start: 09-15-2024 ambulatory Claudine D Talampas Facilit y:[facility] Start: 09-15-2024 Registered Referred Zaynab GarciaCabrera [facility] Start: 09-15-2024 Zaynab Garcia Cabrera - [facility] Start: 09-11-2024 ambulatory Claudine D Talampas Facilit y:[facility] Start: 09-11-2024 Registered Referred Zaynab Roque Start: 09-11-2024 Zaynab Rees - [facility] Start: 09-08-2024 ambulatory Claudine Durán Facilit y:[facility] Start: 09-08-2024 Registered Referred Zaynab Roque Start: 09-08-2024 Zaynab Rees - [place] Start: 09-04-2024 ambulatory Claudine Adam Bunchampas Facilit y:[facility] Start: 09-04-2024 Registered Referred Zaynab Roque Start: 09-04-2024 Zaynab Roque Start: 09-02-2024 End: 09-02-[address] Claudine Durán MD Work Phone: [facility] Start: 09-02-2024 End: 09-02-[address] Zaynab Pina MD -[facility] Work Phone: Start: 09-02-2024 End: 09-02-2024 Dr. Zaynab Pina MD -[facility] Work Phone: Start: 09-01-2024 ambulatory Claudine Durán Facilit y:[facility] Start: 09-01-2024 Registered Referred Zaynab Roque Start: 09-01-2024 Zaynab Roque Start: 08-28-2024 End: 08-28-2024 Patient encounter procedure Fadia CORRIGAN -[facility] Work Phone: Start: 08-28-2024 End: 08-28-[address] Claudine Durán MD Work Phone: [facility] Start: 08-28-2024 Registered Referred Zaynab Roque Start: 08-28-2024 End: 08-28-2024 Fadia Pizarro PROCESS TRAINERClemente -[facility] Work Phone: Start: 08-27-2024 Non-patient / Non-visit Dr. Sandy Chan [facility] Work Phone: Start: 08-27-2024 Dr. Jasmyn piper [facility] Work Phone: Start: 08-26-2024 Non-patient / Non-visit Dr. Sandy Chan [facility] Work Phone: Start: 08-26-2024 Dr. Jasmyn piper [facility] Work Phone: Start: 08-25-2024 Non-patient / Non-visit Dr. Sandy Chan [facility] Work Phone: Start: 08-25-2024 Dr. Jasmyn piper [facility] Work Phone: Start: 08-24-2024 Non-patient / Non-visit Dr. Edouard House MD -[place] [facility] Work Phone: Start: 08-24-2024 Dr. Erasmo Salazar -[place] [facility] Work Phone: Start: 08-23-2024 End: 08-27-2024 [facility] Facility:[facility] Start: 08-23-2024 End: 08-27-2024 Evaluation and management of inpatient Dr. Erasmo House MD -[facility] Work Phone: Start: 08-23-2024 End: 08-27-[address] Claudine Durán MD Work Phone: [facility] Start: 08-23-2024 End: 08-27-2024 Dr. Jasmyn Chan DO -[facility] Work Phone: Start: 08-21-2024 End: 08-21-2024 Anticoagulant drug monitoring [facility] Work Phone: [facility] [place] Comment on above: Personal history of DVT (deep vein thrombosis) (Primary Dx) Start: 08-21-2024 End: 08-21-2024 ambulatory CLAUDINE DURÁN Facility:[facility] Start: 08-20-2024 End: 09-18-2024 Discharged Recurring [...] Start: 08-06-2024 End: 08-06-2024 Anticoagulant drug monitoring [facility] Work Phone: [facility] [place] Comment on above: Personal history of DVT (deep vein thrombosis) (Primary Dx) Start: 08-06-2024 End: 08-06-2024 ambulatory CLAUDINE DURÁN Facility:[facility] Start: 07-29-2024 End: 07-29-2024 ambulatory Jane Rick RN Work Phone: [facility] Start: 07-29-2024 End: 07-29-2024 Coordination of care plan Jane Rick RN Work Phone: [facility] Comment on above: Care Coordination (C gaston review and outreach for CHF GDMT Care Path/) Start: 07-23-2024 End: 07-23-2024 ambulatory Brissa Chester CONNIE.AGENT BASED MODELER Work Phone: Cardiology Comment on above: ECHO and LAB RESULTS Start: 07-23-2024 End: 07-23-2024 E-mail encounter from caregiver Brissa Chester CONNIE.AGENT BASED MODELER Work Phone: Cardiology Start: 07-22-2024 End: 07-22-2024 ambulatory CLAUDINE DURÁN Facility:[facility] Start: 07-22-2024 End: 07-22-2024 Patient encounter procedure Brissa Chester CONNIE.AGENT BASED MODELER Work Phone: Cardiology Comment on above: S/P TAVR (transcathe ter aortic valve replacement) (Primary Dx); Nonrheumatic aortic valve stenosis; Nonrheumatic mitral valve stenosis; Nonrheumatic tricuspid valve regurgitation; Essential hypertension; Disseminated histoplasmosis; History of recurrent deep vein thrombosis (DVT); History of GI bleed; History of COPD Start: 07-22-2024 End: 07-22-2024 ambulatory CLAUDINE DURÁN Facility:[facility] Start: 07-21-2024 End: 07-21-2024 Anticoagulant drug monitoring [facility] Work Phone: Coumadin [facility] Comment on above: Personal history of DVT (deep vein thrombosis) (Primary Dx) Start: 07-21-2024 End: 07-21-2024 ambulatory CLAUDINE DURÁN Facility:[facility] Start: 07-18-2024 End: 07-19-[address] Claudine Durán MD Work Phone: [facility] Work Phone: Start: 07-18-2024 End: 07-19-[address] Claudine Durán MD Work Phone: -Cardiac Rehab Work Phone: Start: 07-18-2024 End: 07-19-2024 Dr. Claudine Durán MD Work Phone: -Cardiac Rehab Work Phone: Start: 07-08-2024 End: 07-08-2024 ambulatory CLAUDINE DURÁN Facility:[facility] Start: 07-07-2024 End: 07-08-2024 Anticoagulant drug monitoring [facility] Work Phone: [facility] [place] Comment on above: Personal history of DVT (deep vein thrombosis) (Primary Dx) Refill Request Start: 07-07-2024 End: 07-07-2024 ambulatory CLAUDINE DURÁN Facility:[facility] Start: 07-02-2024 End: 07-02-2024 Refill Jimbo Swanson APRN.CNS Work Phone: [facility] [place] Comment on above: Refill Request Start: 06-25-2024 End: 06-25-2024 ambulatory Pili Benitez RN [facility] Comment on above: Bi-Weekly Outreach ( Recurring) for Chronic Disease Management Start: 06-21-2024 End: 06-21-2024 Refill Claudine Durán MD Work Phone: [facility] [place] Comment on above: Refill Request Start: 06-20-2024 End: 06-20-[address] Diaz Puckett MD -[facility] Work Phone: Start: 06-20-2024 End: 06-23-2024 Refill Florence Clolins MD Work Phone: Pulmonary Medicine Comment on above: Refill Request Start: 06-18-2024 End: 06-18-2024 ambulatory KELSEY SAGINAW Facility:[facility] Start: 06-18-2024 End: 06-18-[address] Claudine Durán MD Work Phone: -Cardiac Rehab Work Phone: Start: 06-16-2024 End: 06-16-2024 ambulatory CLAUDINE DURÁN Facility:[facility] Start: 06-11-2024 End: 06-11-2024 [facility] Start: [address] Claudine Durán MD Work Phone: -Cardiac Rehab Work Phone: Start: 05-28-2024 End: 05-28-[address] Claudine Durán MD Work Phone: [facility] Work Phone: Start: 05-28-2024 End: 05-28-[address] Claudine Durán MD Work Phone: -Cardiac Rehab Work Phone: Start: 05-28-2024 End: 05-28-2024 ambulatory [facility] Facility:[facility] Start: 05-26-2024 End: 05-26-2024 Patient Outreach Pili Benitez RN [facility] Comment on above: Transition Of Care [place] phone contact (Recurring) for Transitional Care Management Start: 05-21-2024 End: 05-22-2024 Telephone encounter Jimbo Swanson APRN.[employer] GROWTH MEDIA MIXER Work Phone: [facility] [place] Comment on above: Consult Start: 05-20-2024 End: 05-20-2024 Patient encounter procedure Jimbo Swanson APRN.MUSHRO[employer] GROWTH MEDIA MIXER Work Phone: [facility] [place] Comment on above: Medicare annual well [facility] visit, subsequent (Primary Dx); Cough due to bronchospasm; Rheumatoid arthritis involving multiple sites with positive rheumatoid factor (HCC); Low back pain with right-sided sciatica, unspecified back pain laterality, unspecified chronicity; Chronic heart failure with preserved ejection fraction (HFpEF) (HCC); Nonrheumatic aortic valve stenosis; S/P TAVR (transcatheter aortic valve replacement) Start: 05-20-2024 End: 05-20-2024 ambulatory CLAUDINE DURÁN Facility:[facility] Start: 05-20-2024 End: 05-20-2024 Anticoagulant drug monitoring [facility] Work Phone: Coumadin [facility] [place] Comment on above: Personal history of DVT (deep vein thrombosis) (Primary Dx) Start: 05-19-2024 End: 05-19-2024 Patient Outreach Pili Benitez RN [facility] Comment on above: Transition Of Care [place] phone contact (Recurring) for Transitional Care Management, Started Bi-Weekly Outreach (Recurring) for Chronic Disease Management Start: 05-12-2024 End: 05-12-2024 Patient Outreach Pili Benitez RN [facility] Comment on above: Transition Of Care [place] phone contact (Recurring) for Transitional Care Management Start: 05-09-2024 End: 05-12-2024 Follow-up encounter Jimbo Swanson APRN.[employer]OW[employer] MEDIA MIXER Work Phone: [facility] [place] Comment on above: Anticoagulation Start: 05-09-2024 End: 05-09-2024 ambulatory CLAUDINE D TALAMPAS Facility:[facility] Start: 05-05-2024 End: 05-05-2024 Patient Outreach Pili Benitez RN [facility] Comment on above: Transition Of Care [...] Evaluation and management of inpatient CLAUDINE D TALAMPAS Facility:[facility] Start: 05-01-2024 End: 05-01-2024 ambulatory CLAUDINE D TALAMPAS Facility:[facility] Start: 05-01-2024 End: 05-01-2024 Anticoagulant drug monitoring [facility] [place] Comment on above: Personal history of DVT (deep vein thrombosis) (Primary Dx) Start: 04-30-2024 End: 04-30-2024 Admission to same day surgery center Anesthesia Clearance Work Phone: [facility] Work Phone: Start: 04-30-2024 End: 04-30-2024 ambulatory [facility] Facility:[facility] Start: 04-30-2024 End: 04-30-2024 Patient encounter procedure Anesthesia Clearance Work Phone: Cardiothoracic Comment on above: Encounter for preope rative anesthesiology assessment for cardiac surgery (Primary Dx) Nonrheumatic aortic valve stenosis (Primary Dx) Start: 04-30-2024 End: 04-30-2024 Subsequent hospital visit by physician Xr Chest Main J1 Work Phone: Radiology Comment on above: Nonrheumatic aortic valve stenosis [I35.0] Start: 04-30-2024 End: 04-30-2024 ambulatory [facility] Facility:[facility] Start: 04-21-2024 End: 04-21-2024 [facility] Facility:[facility] Start: 04-21-2024 End: 04-21-2024 Patient encounter procedure Geno Hart MD Work Phone: [facility] [place] [facility] Comment on above: Disseminated histopl asmosis (Primary Dx); Bronchiectasis without complication (HCC); COPD without exacerbation (HCC); Rheumatoid arthritis with positive rheumatoid factor, involving unspecified site (HCC); History of immunosuppressive therapy; History of penicillin allergy; Encounter for long-term (current) use of antibiotics; Counseling, unspecified Start: 04-16-2024 End: 04-16-2024 ambulatory Leandra Quinonez APRN.M[employer]HRO[employer]OW[employer] MEDIA MIXER Work Phone: Cardiology Comment on above: Structural Dental Cl earance Start: 04-15-2024 End: 04-15-2024 ambulatory Leandra Quinonez APRN.M[employer]HRO[employer]OW[employer] MEDIA MIXER Work Phone: Cardiology Start: 04-15-2024 End: 04-15-2024 Telephone encounter Leandra Quinonez APRN.MUSHROOM [employer]OWTH MEDIA MIXER Work Phone: Cardiology Comment on above: Appointment (TAVR ole heduling) Start: 04-14-2024 End: 04-14-2024 ambulatory Pili Benitez RN [employer] Comment on above: Initial enrollment o [facility] for Chronic Disease Management Start: 04-05-2024 End: 04-05-2024 ambulatory Juvencio Saeed MD Work Phone: Cardiology Start: 04-03-2024 End: 04-03-2024 ambulatory CLAUDINE TARIQLAYNE Facility:[facility] Start: 04-03-2024 End: 04-03-2024 [facility] Work [facility]: [facility] [place] Comment on above: Personal history of DVT (deep vein thrombosis) (Primary Dx) Start: 04-02-2024 End: 04-03-2024 Telephone encounter Bartolome Francis MD Work Phone: Cardiothoracic Comment on above: Referral Information (Surgical Consult with Dr. Francis) Start: 04-01-2024 End: 04-02-2024 Telephone encounter Bartolome Francis MD Work Phone: Cardiothoracic Comment on above: Insurance Authorizat ion Start: 03-31-2024 End: 03-31-2024 ambulatory Yu Torres MA [facility] [place] Comment on above: TAVR Meeting Start: 03-31-2024 End: 03-31-2024 E-mail encounter from caregiver Yu Torres MA [facility] [place] Start: 03-31-2024 End: 03-31-2024 Patient encounter procedure Yudeshawn Torres MA [facility] [place] Comment on above: [facility] ([employer] High Risk - Attempt 3) Start: 03-26-2024 End: 03-26-2024 ambulatory Yudeshawn Torres SANDY [facility] [place] Start: 03-26-2024 End: 03-26-2024 Patient encounter procedure Yudeshawn Torres SANDY [facility] [place] Comment on above: Population Health Na vigation [...] End: 03-25-2024 Subsequent hospital visit by physician [facility] Start: 03-24-2024 End: 03-25-2024 ambulatory CLAUDINE DURÁN Facility:[facility] Start: 03-23-2024 End: 03-23-2024 Telephone encounter Michael Beavers MD Work Phone: Cardiology Comment on above: Patient Education Start: 03-21-2024 Encounter for preprocedural cardiovascular examination CLAUDINE DURÁN [facility] Start: 03-21-2024 End: 03-21-2024 Subsequent hospital visit by physician Xr Chest Main J1 Work Phone: Radiology Comment on above: Nonrheumatic aortic valve stenosis [I35.0] Start: 03-21-2024 End: 03-21-2024 ambulatory Yu Torres MA [facility] [place] Start: 03-21-2024 End: 03-21-2024 Patient encounter procedure [...] encounter status Juvencio Saeed MD Work Phone: [facility] Start: 02-29-2024 End: 02-29-2024 Office outpatient visit 15 minutes Claudine Durán MD Work Phone: [facility] [place] Comment on above: Chronic heart failur e with preserved ejection fraction (HFpEF) (HCC) (Primary Dx); Rheumatoid arthritis with positive rheumatoid factor, involving unspecified site (HCC); COPD without exacerbation (HCC); Bronchiectasis without complication (HCC); Nonrheumatic aortic valve stenosis; Screening for depression; Encounter for screening examination for other mental health and behavioral disorders Start: 02-29-2024 End: 02-29-2024 Anticoagulant drug monitoring [facility] Work Phone: [facility] [place] Comment on above: Personal history of DVT (deep vein thrombosis) (Primary Dx) Start: 02-29-2024 End: 02-29-2024 ambulatory CLAUDINE Adam [facility] Facility:[facility] Start: 02-20-2024 End: 02-21-2024 Refill Geno Hart MD Work Phone: [facility] [place] Comment on above: Refill Request Start: 01-31-2024 End: 01-31-2024 ambulatory [facility] Facility:[facility] Start: 01-31-2024 End: 01-31-2024 [facility] Work Phone: [facility] [place] Comment on above: Personal history of DVT (deep vein thrombosis) (Primary Dx) Start: 01-29-2024 End: 01-29-2024 ambulatory Ilda Miller RN Work Phone: [employer] Comment on above: Community Monitoring Outreach (2nd attempt Telephonic Outreach CDM Home Monitoring) Start: 01-21-2024 End: 01-21-2024 ambulatory Ilda Miller RN Work Phone: [employer] Comment on above: Community Monitoring Outreach (Telephonic Outreach CDM Home Monitoring) Start: 01-18-2024 End: 01-18-2024 [facility] Start: 01-10-2024 End: 01-10-2024 ambulatory [facility] Facility:[facility] Start: 01-10-2024 End: 01-10-2024 Anticoagulant drug monitoring [facility] Work Phone: [facility] [place] Comment on above: Personal history of DVT (deep vein thrombosis) (Primary Dx) Start: 01-08-2024 End: 01-08-2024 ambulatory Monica Aguila APRN.CNP Work Phone: Cardiology Start: 01-08-2024 End: 01-08-2024 Patient encounter procedure Monica Aguila SEAM SEWER.AGENT BASED MODELER Work Phone: Cardiology Comment on above: TAVR Consult Start: 01-08-2024 End: 01-08-2024 Patient encounter status Monica Aguila SEAM SEWER.AGENT BASED MODELER Work Phone: [facility] Start: 01-04-2024 End: 01-04-2024 Telephone encounter Geno Hart MD Work Phone: [facility] Comment on above: Results Start: 01-02-2024 End: 01-02-2024 Patient encounter procedure Ines Derw MD Work Phone: Cardiology Comment on above: Rheumatoid arthritis with positive rheumatoid factor, involving unspecified site (HCC) (Primary Dx); Nonrheumatic aortic valve stenosis; Nonrheumatic mitral valve stenosis; Pericardial effusion; Histoplasmosis Start: 01-02-2024 End: 01-02-2024 ambulatory CLAUDINE Adam DURÁN Facility:[facility] Start: 12-27-2023 End: 12-27-2023 ambulatory CLAUDINE Adam BUNCHAMPAS Facility:[facility] Start: 12-27-2023 End: 12-27-2023 Anticoagulant drug monitoring [facility] Work Phone: [facility] [place] Comment on above: Personal history of DVT (deep vein thrombosis) (Primary Dx) Start: 12-20-2023 End: 12-20-2023 ambulatory Rosa Wallace RN Work Phone: [employer] Comment on above: community monitoring outreach (engagement) Start: 12-19-2023 End: 12-20-2023 Telephone encounter Claudine Durán MD Work Phone: [facility] [place] Start: 12-19-2023 End: 12-19-2023 ambulatory Rosa Wallace RN Work Phone: [employer] Comment on above: community monitoring outreach (engagement) Start: 12-18-2023 End: 12-18-2023 [facility] Facility:[facility] Start: 12-18-2023 End: 12-18-2023 Patient encounter procedure Geno Hart MD Work Phone: [facility] [place] Comment on above: Disseminated histopl asmosis (Primary Dx); Bronchiectasis without complication (HCC); COPD without exacerbation (HCC); Rheumatoid arthritis with positive rheumatoid factor, involving unspecified site (HCC); History of immunosuppressive therapy; History of penicillin allergy; Encounter for long-term (current) use of antibiotics; Counseling, unspecified; Disseminated histoplasmosis Start: 12-13-2023 End: 12-13-2023 [facility] Facility:[facility] Start: 12-13-2023 End: 12-13-2023 Anticoagulant drug monitoring [facility] Work Phone: [facility] [place] Comment on above: Personal history of DVT (deep vein thrombosis) (Primary Dx) Start: 12-11-2023 End: 12-12-2023 Refill Twyla Cuevas APRN.CNP Work Phone: [facility] [place] Comment on above: Refill Request Start: 12-09-2023 End: 12-11-2023 Refill Claudine Durán MD Work Phone: [facility] [place] Comment on above: Refill Request Start: 11-29-2023 End: 11-29-2023 [facility] Facility:[facility] Start: 11-29-2023 End: 11-29-2023 Anticoagulant drug monitoring [facility] Work Phone: [facility] [place] Comment on above: Personal history of DVT (deep vein thrombosis) (Primary Dx) Start: 11-26-2023 End: 11-26-2023 Telephone encounter Geno Hart MD Work Phone: [facility] [place] Comment on above: Patient Question Start: 11-15-2023 End: 11-15-2023 Telephone encounter Claudine Durán MD Work Phone: [facility] [place] Comment on above: Orders (poc protime) Start: 11-15-2023 End: 11-15-2023 ambulatory CLAUDINE DURÁN Facility:[facility] Start: 11-15-2023 End: 11-15-2023 Anticoagulant drug monitoring [facility] Work Phone: [facility] [place] Comment on above: Personal history of DVT (deep vein thrombosis) (Primary Dx) Start: 11-08-2023 End: 11-08-2023 Anticoagulant drug monitoring [facility] Work Phone: [facility] [place] Comment on above: Personal history of DVT (deep vein thrombosis) (Primary Dx) Start: 11-03-2023 End: 11-06-2023 Refill Jimbo Jv SEAM SEWER.[employer]IA MIXER Work Phone: [facility] [place] Comment on above: Refill Request Start: 11-02-2023 End: 11-02-2023 E-mail encounter from caregiver Bibi Alegria APRN.AGENT BASED MODELER Work Phone: Cardiology Start: 11-02-2023 End: 11-02-2023 Follow-up encounter Bibi Alegria APRN.AGENT BASED MODELER Work Phone: Cardiology Comment on above: Valve Follow Up Start: 10-30-2023 End: 10-30-2023 Telephone encounter William Messina DO Work Phone: Cardiology Comment on above: Forms Start: 10-25-2023 End: 10-25-2023 Anticoagulant drug monitoring [facility] Work Phone: [facility] [place] Comment on above: Personal history of DVT (deep vein thrombosis) (Primary Dx) Start: 10-20-2023 End: 10-25-2023 Refill Jimbo Swanson SEAM SEWER.MUSHRO[employer]OWTH MEDIA MIXER Work Phone: [facility] [place] Comment on above: Refill Request Start: 10-19-2023 End: 10-19-2023 Anticoagulant drug monitoring [facility] Work Phone: [facility] [place] Comment on above: Personal history of DVT (deep vein thrombosis) (Primary Dx) Start: 10-18-2023 End: 10-18-2023 Patient encounter procedure Bibi Alegria APRN.AGENT BASED MODELER Work Phone: Cardiology Comment on above: Aortic stenosis with bicuspid valve (Primary Dx); Pericardial effusion; Essential hypertension; Chronic heart failure with preserved ejection fraction (HFpEF) ([facility]); Mitral valve stenosis, non-rheumatic; Nonrheumatic tricuspid valve regurgitation Start: 10-17-2023 End: 10-17-2023 ambulatory Ilda Miller RN Work Phone: [employer] Comment on above: Community Monitoring Outreach (F/U engagement CDM Home Monitoring) Start: 10-11-2023 End: 10-11-2023 Office outpatient visit 25 minutes Jimbo Swanson APRN.MUSHRO[employer]OWTH MEDIA MIXER Work Phone: [facility] [place] Comment on above: Aortic valve stenosi s, etiology of cardiac valve disease unspecified (Primary Dx); Mitral valve stenosis, unspecified etiology; Pericardial effusion; Gastrointestinal hemorrhage, unspecified gastrointestinal hemorrhage type; Rheumatoid arthritis with positive rheumatoid factor, involving unspecified site ([facility]); Edema, unspecified type; Blood loss anemia Start: 09-27-2023 End: 09-27-2023 Anticoagulant drug monitoring [facility] Work Phone: [facility] [place] Comment on above: Personal history of DVT (deep vein thrombosis) (Primary Dx) Refill Request Start: 09-27-2023 Refill Twyla Cuevas APRN.AGENT BASED MODELER Work Phone: [facility] [place] Comment on above: Med Change Request Start: 09-21-2023 End: 09-21-2023 Anticoagulant drug monitoring [facility] Work Phone: [facility] [place] Comment on above: Personal history of DVT (deep vein thrombosis) (Primary Dx) Start: 09-04-2023 Telephone encounter Twyla de APRN.AGENT BASED MODELER Work Phone: [facility] [place] Comment on above: Results Start: 08-31-2023 ambulatory Ilda Miller RN Work Phone: [employer] Comment on above: Community Monitoring Outreach (F/U engagement CDM Home Monitoring) Start: 08-30-2023 End: 08-30-2023 Anticoagulant drug monitoring [facility] Work Phone: [facility] [place] Comment on above: Personal history of DVT (deep vein thrombosis) (Primary Dx) Refill Request Start: 08-30-2023 End: 08-30-2023 Subsequent hospital visit by physician Madelin [facility] (I-Stat) Work Phone: [facility] Comment on above: Disseminated histopl asmosis [B39.9] Start: 08-28-2023 End: 08-28-2023 Patient encounter procedure Geno Hart MD Work Phone: [facility] [place] [facility] Comment on above: [...] Essential hypertension; Pericardial effusion (noninflammatory); Leg edema; tank terminal gauger current use of anticoagulant therapy Start: 08-27-2023 End: 08-27-2023 ambulatory CLAUDINE DURÁN Facility:[facility] Start: 08-24-2023 Telephone encounter William Messina DO Work Phone: Cardiology Start: 08-22-2023 End: 08-22-2023 Office outpatient visit 25 minutes Claudine Durán MD Work Phone: [facility] [place] Comment on above: Anemia, unspecified type (Primary Dx); Bilateral lower extremity edema; Chronic anticoagulation; Moderate to severe aortic stenosis; Disseminated histoplasmosis; Nodule of lower lobe of left lung; Encounter for long-term current use of medication Start: 08-22-2023 End: 08-22-2023 Anticoagulant drug monitoring [facility] Work Phone: [facility] [place] Comment on above: Personal history of DVT (deep vein thrombosis) (Primary Dx) Start: 08-09-2023 End: 08-09-2023 Anticoagulant drug monitoring [facility] Work Phone: [facility] [place] Comment on above: Personal history of DVT (deep vein thrombosis) (Primary Dx) Start: 08-08-2023 End: 08-08-2023 Patient encounter procedure Twyla Cuevas APRN.AGENT BASED MODELER Work Phone: [facility] [place] Comment on above: Rheumatoid arthritis involving multiple sites with positive rheumatoid factor (HCC) (Primary Dx); Edema, unspecified type; Encounter for therapeutic drug monitoring Start: 08-07-2023 Refill Claudine tavares MD Work Phone: [facility] [place] Comment on above: Refill Request Start: 07-31-2023 Refill Claudine tavares MD Work Phone: [facility] [place] Comment on above: Refill Request Start: 07-28-2023 Refill Jimbo Swanson APRN.MUSHRO[employer]OWTH MEDIA MIXER Work Phone: [facility] [place] Comment on above: Refill Request Start: 07-26-2023 End: 07-26-2023 Anticoagulant drug monitoring [facility] Work Phone: [facility] [place] Comment on above: tank terminal gauger current us e of anticoagulant therapy (Primary Dx) Start: 07-20-2023 Telephone encounter Claudine valderrama MD Work Phone: [facility] [place] Comment on above: Medication Problem Start: 07-17-2023 Refill Claudine tavares MD Work Phone: [facility] [place] Comment on above: Refill Request Right knee pain, uns pecified chronicity (Primary Dx) Start: 07-12-2023 Telephone encounter Jimbo sanchez APRN.MUSHROOM GROWTH MEDIA MIXER Work Phone: [facility] [place] Comment on above: Results Start: 07-12-2023 End: 07-12-2023 Anticoagulant drug monitoring [facility] Work Phone: [facility] [place] Comment on above: Personal history of DVT (deep vein thrombosis) (Primary Dx) Start: 07-10-2023 End: 07-10-2023 Office outpatient visit 25 minutes Jimbo Sananusha ROYMUSHROOM GROWTH MEDIA MIXER Work Phone: [facility] [place] Comment on above: Acute pain of right knee (Primary Dx); Chronic anticoagulation; Hip pain, acute, left; Pain and swelling of right lower leg Start: 07-05-2023 ambulatory Ilda Miller RN Work Phone: [employer] Comment on above: Community Monitoring Outreach (F/U engagement CD Home Monitoring) Start: 07-05-2023 End: 07-05-2023 [facility]ticoagulant drug [facility] Work Phone: [facility] Comment on above: Personal history of DVT (deep vein thrombosis) (Primary Dx) Start: 07-01-2023 Refill Twyla Cuevas APRN.AGENT BASED MODELER Work Phone: [facility] [place] Comment on above: Refill Request Start: 06-07-2023 Refill Claudine tavares MD Work Phone: [address] [place] [address] Comment on above: Refill Request Start: 06-05-2023 End: 06-05-2023 Office outpatient visit 40 minutes Claudine Durán MD Work Phone: [facility] [place] Comment on above: Anemia, unspecified type (Primary Dx); Elevated LFTs; COPD without exacerbation (HCC); Essential hypertension; Cough due to bronchospasm; Chronic anticoagulation; Encounter for long-term current use of medication; Gastric ulcer with hemorrhage, unspecified chronicity Start: 05-31-2023 End: 05-31-[address] Claudine Durán Work Phone: [facility] Work Phone: Start: 05-31-2023 End: 05-31-2023 Dr. Claudine Durán Work Phone: [facility] Start: 05-29-2023 End: 05-29-[address] Claudine Durán Work Phone: [facility] Work Phone: Start: 05-29-2023 End: 05-29-2023 Dr. Claudine Durán Work Phone: [facility] Start: 05-28-2023 End: 05-28-[address] Claudine Durán Work Phone: [facility] Work Phone: Start: 05-28-2023 End: 05-28-2023 Dr. Claudine Durán Work Phone: [facility] Start: 05-24-2023 End: 05-24-[address] Claudine Durán Work Phone: [facility] Work Phone: Start: 05-24-2023 End: 05-24-2023 Dr. Claudine Durán Work Phone: [facility] Start: 05-21-2023 End: 05-21-[address] Claudine Durán Work Phone: [facility] Work Phone: Start: 05-21-2023 End: 05-21-2023 Dr. Claudine Durán Work Phone: [facility] Start: 05-17-2023 End: 05-17-[address] Claudine Durán Work Phone: [facility] Work Phone: Start: 05-17-2023 End: 05-17-2023 Dr. Claudine Durán Work Phone: [facility] Start: 05-15-2023 End: 05-15-[address] Claudine Durán Work Phone: [facility] Work Phone: Start: 05-15-2023 End: 05-15-2023 Dr. Claudine Durán Work Phone: [facility] Start: 05-14-2023 End: 05-14-[address] Claudine Durán Work Phone: [facility] Work Phone: Start: 05-14-[address] Claudine hurt Work Phone: [facility] Start: 05-14-2023 End: 05-14-2023 Dr. Claudine Druán Work Phone: [facility] Start: 05-10-2023 End: 05-10-[address] Claudine Durán Work Phone: [facility] Work Phone: Start: 05-10-[address] Claudine hurt Work Phone: [facility] Start: 05-10-2023 End: 05-10-2023 Dr. Claudine Durán Work Phone: [facility] Start: 05-07-2023 End: 05-07-[address] Claudine Durán Work Phone: [facility] Work Phone: Start: 05-07-2023 End: 05-07-[address] Claudine Durán Work Phone: [facility] Start: 05-07-2023 End: 05-07-2023 Dr. Claudine Durán Work Phone: [facility] Start: 05-03-2023 End: 05-03-[address] Claudine Durán Work Phone: [facility] Work Phone: Start: 05-03-[address] Claudine hurt Work Phone: [facility] Start: 05-03-2023 End: 05-03-2023 Dr. Claudine Durán Work Phone: [facility] Start: 05-01-2023 End: 05-01-2023 Dr. Claudine Durán Work Phone: [facility] Work Phone: Start: 05-01-2023 End: 05-01-[address] Claudine Durán Work Phone: [facility] Work Phone: Start: 05-01-2023 End: 05-01-[address] Claudine Durán Work Phone: [facility] Start: 05-01-[address] Claudine hurt Work Phone: [facility] Start: 05-01-2023 End: 05-01-2023 Dr. Claudine Durán Work Phone: [facility] Start: 04-30-2023 Telephone encounter Claudine valderrama MD Work Phone: [facility] [place] Comment on above: Clinical Update Start: 04-30-2023 End: 04-30-2023 Dr. Claudine Durán Work Phone: [facility] Work Phone: Start: 04-10-2023 Non-patient / Non-visit Dr. Sabrina Durán Work Phone: [facility] Start: 04-10-2023 Dr. Claudine avila Work Phone: [facility] Start: 04-10-2023 End: 04-10-[address] Claudine Durán Work Phone: [facility] Work Phone: Start: 04-10-2023 End: 04-10-[address] Claudine Durán [facility] Work Phone: Start: 04-10-2023 End: 04-10-2023 Dr. Claudine Durán Work Phone: [facility] Work Phone: Start: 04-09-2023 Non-patient / Non-visit Dr. Sabrina Durán Work Phone: [facility] Work Phone: Start: 04-09-2023 Dr. Claudine avila Work Phone: [facility] Work Phone: Start: 04-05-2023 End: 04-30-2023 Evaluation and management of inpatient Dr. Claudine Durán Work Phone: [facility] Start: 04-05-2023 End: 04-30-2023 Dr. Claudine Durán [facility] Start: 04-05-2023 Non-patient / Non-visit Dr. Sabrina Durán Work Phone: [facility] Work Phone: Start: 04-05-2023 Dr. Claudine avila Work Phone: [facility] Work Phone: Start: 04-04-2023 Non-patient / Non-visit Dr. Sabrina Durán Work Phone: [facility] Work Phone: Start: 04-04-2023 Dr. Claudine avila Work Phone: [facility] Work Phone: Start: 04-04-2023 Non-patient / Non-visit Dr. Sabrina Durán Work Phone: [facility] Start: 04-04-2023 Dr. Claudine avila Work Phone: [facility] Start: 04-03-2023 Non-patient / Non-visit Dr. Sabrina Durán Work Phone: [facility] Start: 04-03-2023 Dr. Claudine avila Work Phone: [facility] Start: 04-02-2023 Non-patient / Non-visit Dr. Sabrina Durán Work Phone: [facility] Work Phone: Start: 04-02-2023 Dr. Claudine avila Work Phone: [facility] Work Phone: Start: 04-02-2023 Non-patient / Non-visit Dr. Sabrina Durán Work Phone: [facility] Start: 04-02-2023 Dr. Claudine avila Work Phone: [facility] Start: 04-02-2023 Non-patient / Non-visit Dr. Sabrina Durán Work Phone: [facility] Start: 04-02-2023 Dr. Claudine avila Work Phone: [facility] Start: 04-02-2023 Non-patient / Non-visit Dr. Sabrina Durán Work Phone: [facility] Start: 04-02-2023 Dr. Claudine avila [facility] Phone: [facility] Start: 04-01-2023 Non-patient / Non-visit Dr. Sabrina Durán Work Phone: [facility] Start: 04-01-2023 Dr. Claudine avila Work Phone: [facility] Start: 04-01-2023 Non-patient / Non-visit Dr. Sabrina Durán Work Phone: [facility] Work Phone: Start: 04-01-2023 Dr. Claudine avila Work Phone: [facility] Work Phone: Start: 03-31-2023 End: 04-05-2023 Evaluation and management of inpatient Dr. Claudine Durán Work Phone: [facility] Care [facility] Work Phone: Start: 03-31-2023 End: 04-05-2023 Dr. Claudine Durán Work Phone: [facility] Work Phone: Start: 03-28-2023 End: 03-28-2023 Emergency department patient visit Dr. Claudine Durán Work Phone: [facility] Work Phone: Start: 03-28-2023 End: 03-28-2023 Dr. Claudine Durán Work Phone: [facility] Work Phone: Start: 03-27-2023 Non-patient / Non-visit Dr. Sabrina Durán Work Phone: [facility] [facility] Work Phone: Start: 03-27-2023 Dr. Claudine avila Work Phone: [facility] Work Phone: Start: 03-27-2023 E-mail encounter fro m caregiver William Messina DO Work Phone: [facility] Start: 03-27-2023 Patient encounter procedure William Messina DO Work Phone: Cardiology Comment on above: Appointment Start: 03-26-2023 End: 03-27-2023 Evaluation and management of inpatient [facility] Surgical 3 Work Phone: Start: 03-26-2023 observation encounter W [facility] Work Phone: Start: 03-26-2023 End: 03-27-2023 Dr. Claudine Durán [facility] Work Phone: Start: 03-23-2023 Telephone encounter Rachelle Leonard APRN.AGENT BASED MODELER Work Phone: [place] [facility] Comment on above: Appointment Start: 03-19-2023 End: 03-25-2023 Evaluation and management of inpatient CLAUDINE DURÁN Facility:[facility] Start: 03-19-2023 End: 03-19-2023 Emergency department [facility] Work Phone: Start: 03-19-2023 End: 03-19-2023 Dr. Claudine Durán Work Phone: [facility] Work Phone: Start: 03-15-2023 ambulatory Claudine tavares MD Work Phone: [facility] [place] Comment on above: histoplasmosis Start: 02-27-2023 Telephone encounter Claudine valderrama MD Work Phone: [facility] [place] Comment on above: Results (worsening l iver enzymes) Start: 02-07-2023 End: 02-07-2023 Subsequent hospital visit by physician [facility] [place] Work Phone: Radiology Comment on above: Acute cough [R05.1] Start: 02-07-2023 End: 02-07-2023 Patient encounter procedure Adri Zaragoza SEAM SEWER.AGENT BASED MODELER Work Phone: [facility] Comment on above: Acute cough (Primary Dx) Start: 02-02-2023 End: 02-02-2023 Anticoagulant drug monitoring [facility] Phone: [facility] Comment on above: Personal history of DVT (deep vein thrombosis) (Primary Dx) Start: 01-24-2023 Refill Teresa barboza MD Work Phone: Pulmonary Medicine Comment on above: Refill Request Start: 01-17-2023 End: 01-17-2023 Anticoagulant drug monitoring [facility] Work Phone: [facility] Comment on above: Embolism and thrombo sis (HCC) (Primary Dx) Start: 01-10-2023 End: 01-10-2023 Anticoagulant drug monitoring [facility] Work Phone: [facility] Comment on above: Personal history of DVT (deep vein thrombosis) (Primary Dx) Start: 01-04-2023 End: 01-04-2023 Office outpatient visit 15 minutes Jimbo Swanson APRN.MUSHROOM GROWTH MEDIA MIXER Work Phone: [facility] [place] Comment on above: Encounter for immuni zation (Primary Dx) Start: 01-04-2023 End: 01-04-2023 Anticoagulant drug monitoring [facility] Work Phone: [facility] Comment on above: Embolism and thrombo sis (HCC) (Primary Dx) Start: 12-20-2022 Refill Claudine tavares MD Work Phone: [facility] [place] Comment on above: Refill Request Start: 12-14-2022 End: 12-14-2022 Anticoagulant drug monitoring [facility] Work Phone: [facility] [place] Comment on above: Embolism and thrombo sis (HCC) (Primary Dx) Start: 12-07-2022 End: 12-07-2022 Antico[facility] Work Phone: [facility] [place] Comment on above: Embolism and thrombo sis (HCC) (Primary Dx) Start: 11-20-2022 Documentation procedure Mammog adrian Coordinator [facility] Start: 11-20-2022 Letter encounter Mammography Coordinator [facility] Department Start: 11-17-2022 End: 11-17-2022 Subsequent hospital visit by physician Screen Mamm[facility] Mamm[facility] Comment on above: Encounter for screen ing mammogram for breast cancer [Z12.31] Start: 11-09-2022 Telephone encounter Claudine valderrama MD Work Phone: [facility] [place] Comment on above: Orders (protime) Start: 11-09-2022 End: 11-09-2022 Anticoagulant drug monitoring [facility] Work Phone: [facility] [place] Comment on above: Embolism and thrombo sis (HCC) (Primary Dx) Start: 11-09-2022 End: 11-09-2022 Patient encounter procedure Ron Veras MD Work Phone: Orthopaedics Comment on above: DDD (degenerative di sc disease), lumbar (Primary Dx); Hip pain, acute, left; Age-related osteoporosis without current pathological fracture Start: 11-01-2022 Telephone encounter Claudine valderrama MD Work Phone: [facility] [place] Comment on above: Medication Problem Start: 10-31-2022 ambulatory Ashly Shay RN NURSE REWINDER Comment on above: Medication Request ( Warfarin) Refill Request Start: 10-27-2022 End: 10-27-2022 Office outpatient visit 25 minutes Jimbo Swanson APRN.MUSHROOM GROWTH MEDIA MIXER Work Phone: [facility] [place] Comment on [...] Start: 10-26-2022 End: 10-26-2022 Anticoagulant drug monitoring [facility] Work Phone: [facility] [place] Comment on above: Personal history of DVT (deep vein thrombosis) (Primary Dx) Start: 10-12-2022 End: 10-12-2022 Anticoagulant drug monitoring [facility] Work Phone: [facility] [place] Comment on above: tank 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 gauger current us e of anticoagulant therapy (Primary Dx) Start: 10-06-2022 Refill Jimbo Swanson APRN.MUSHROOM GROWTH MEDIA MIXER Work Phone: [facility] [place] Comment on above: Refill Request Start: 09-25-2022 Telephone encounter Rachelle Schulte APRN.AGENT BASED MODELER Work Phone: Cardiology Comment on above: Results Start: 09-14-2022 Telephone encounter Claudine valderrama MD Work Phone: [facility] [place] Comment on above: Anticoagulation Start: 09-07-2022 End: 09-07-2022 Anticoagulant drug monitoring [facility] Work Phone: [facility] [place] Comment on above: Personal history of DVT (deep vein thrombosis) (Primary Dx) Start: 08-29-2022 End: 08-29-2022 Office outpatient visit 15 minutes Rachelle Schulte APRN.AGENT BASED MODELER Work Phone: Cardiology Comment on above: Aortic stenosis with bicuspid valve (Primary Dx); Essential hypertension; History of recurrent deep vein thrombosis (DVT) Start: 08-15-2022 Refill [facility] Provider Pulmonary Medicine Comment on above: Refill Request Start: 08-11-2022 Telephone encounter Claudine valderrama MD Work Phone: [facility] [place] Comment on above: Patient Update Start: 07-24-2022 [...] Subsequent hospital visit by physician [facility] ([facility]) Work Phone: Cat Scan Comment on above: Lung nodules [R91.8] Start: 06-29-2022 End: 06-29-2022 [facility] Work Phone: [facility] [place] Comment on above: Personal history of DVT (deep vein thrombosis) (Primary Dx) Start: 05-31-2022 ambulatory [facility] Provider [employer] Maintainer Management Comment on above: Home Monitoring Ques tionnaire Reminder + Happy Belated Birthday! Start: 05-31-2022 E-mail encounter fro m caregiver [facility] Provider [facility] Start: 05-23-2022 Telephone encounter Claudine valderrama MD Work Phone: [facility] [place] Comment on above: Clearance for surger y Start: 05-04-2022 End: 05-04-2022 [facility] Work Phone: [facility] [place] Comment on above: Personal history of DVT (deep vein thrombosis) (Primary Dx) Start: 04-21-2022 ambulatory [facility] Provider [employer] Maintainer Management Comment on above: Home Monitoring Prog jelani Reminder Start: 04-21-2022 E-mail encounter fro m caregiver [facility] Provider [facility] Start: 04-06-2022 End: 04-06-2022 [facility] Work Phone: [facility] [place] Comment on above: Personal history of DVT (deep vein thrombosis) (Primary Dx) Start: 03-30-2022 End: 03-30-2022 [facility] Work Phone: [facility] [place] Comment on above: Personal history of DVT [...] both eyes Start: 02-24-2022 ambulatory [facility] Provider [employer] M[employer] Management Comment on above: [employer] Home Monitor ing Program Reminder Start: 02-24-2022 E-mail encounter fro m caregiver [facility] Provider [facility] Start: 02-17-2022 ambulatory [facility] Provider [employer] Maintainer Management Comment on above: [employer] Home Monitor ing Program Reminder Start: 02-17-2022 E-mail encounter fro m caregiver [facility] Provider [facility] V2contact Start: 02-02-2022 End: 02-02-2022 Anticoagulant drug monitoring [facility] Work Phone: [facility] [place] Comment on above: Personal history of DVT (deep vein thrombosis) (Primary Dx) Start: 01-17-2022 ambulatory [facility] Provider [employer] Maintainer Management Comment on above: [employer] Home Monitor ing Program Reminder Refill Request Start: 01-17-2022 E-mail encounter fro m caregiver [facility] Provider [facility] Start: 01-10-2022 Refill Jimbo Swanson APRN.MUSHROOM GROWTH MEDIA MIXER Work Phone: [facility] [place] Comment on above: Refill Request Start: 01-05-2022 End: 01-05-2022 [facility] Work Phone: [facility] [place] Comment on above: Personal history of DVT (deep vein thrombosis) (Primary Dx) Start: 12-31-2021 End: 12-31-2021 Subsequent hospital visit by physician [facility] [place] Work Phone: Radiology Comment on above: Hip pain, acute, lef t [M25.552] Start: 12-22-2021 End: 12-22-2021 Anticoagulant drug monitoring [facility] Work Phone: [facility] [place] Comment on above: Personal history of DVT (deep vein thrombosis) (Primary Dx) Start: 11-29-2021 ambulatory Jimbo Swanson CONNIE.MUSHROOM GROWTH MEDIA MIXER Work Phone: [facility] [place] Comment on above: Blood pressure Start: 11-29-2021 End: 11-29-2021 Patient encounter procedure Florence Collins MD Work Phone: Pulmonary Medicine Comment on above: Lung nodules (Primar y Dx); Bronchiectasis without complication (HCC); Chronic obstructive pulmonary disease, unspecified COPD type (HCC); Rheumatoid arthritis involving multiple sites with positive rheumatoid factor (HCC) Start: 11-24-2021 Telephone encounter [place] Kelvin sepulveda Work Phone: Radiology Comment on above: Results Start: 11-10-2021 End: 11-10-2021 Patient encounter procedure Jimbo Swanson CONNIE.MUSHROOM GROWTH MEDIA MIXER Work Phone: [facility] [place] Comment on above: Essential hypertensi on (Primary Dx); Chronic obstructive pulmonary disease, unspecified COPD type (HCC); Encounter for immunization; Gastroesophageal reflux disease without esophagitis; Bronchiectasis without complication (HCC); COPD without exacerbation (HCC); Aortic stenosis with bicuspid valve Start: 11-08-2021 Refill Claudine tavares MD Work Phone: [facility] [place] Comment on above: Refill Request Start: 11-01-2021 End: 11-01-2021 Patient encounter procedure [place] Louise Work Phone: Podiatry Comment on above: Ulcer of toe of left foot, limited to breakdown of skin (HCC) (Primary Dx); Hammer toe of left foot; Hallux rigidus of left foot Start: 10-27-2021 Telephone encounter Claudine valderrama MD Work Phone: Coumadin [facility] [place] Comment on above: Orders (protime) Start: 10-27-2021 End: 10-27-2021 Anticoagulant drug monitoring [facility] Work Phone: [facility] [place] Comment on above: Personal history of DVT (deep vein thrombosis) (Primary Dx) Start: 10-18-2021 End: 10-18-2021 Patient encounter procedure [place] Louise Work Phone: Podiatry Comment on above: Ulcer of toe of left foot, limited to breakdown of skin (HCC) (Primary Dx); Hammer toe of left foot; Onychodystrophy Refill Request Start: 10-18-2021 End: 10-18-2021 Subsequent hospital visit by physician [facility] [place] [facility] Work Phone: Radiology Comment on above: Ulcer of toe of left foot, limited to breakdown of skin (HCC) [L97.521] Start: 10-12-2021 End: 10-12-2021 Subsequent hospital visit by physician [facility] Work Phone: Radiology Comment on above: Abnormal mammogram [ R92.8] Start: 09-29-2021 End: 09-29-2021 Anticoagulant drug monitoring [facility] Work Phone: [facility] [place] Comment on above: Personal history of DVT (deep vein thrombosis) (Primary Dx) Start: 09-20-2021 End: 09-20-2021 Patient encounter procedure Jimbobetina Swanson APRN.CNS Work Phone: Internal Medicine [place] Comment on above: Toe infection (Prima ry Dx); Sinobronchitis Start: 09-05-2021 Documentation procedure Mammog adrian Coordinator [facility] Start: 09-05-2021 Letter encounter Mammography Coordinator [facility] Department Start: 09-05-2021 End: 09-05-2021 Subsequent hospital visit by physician Screen Mammo [facility] Mammogram Comment on above: Encounter for screen ing mammogram for breast cancer [Z12.31] Start: 08-23-2021 End: 08-23-2021 Anticoagulant drug monitoring [facility] Work Phone: [facility] [place] Comment on above: Personal history of DVT (deep vein thrombosis) (Primary Dx) Start: 08-12-2021 End: 08-12-2021 Patient encounter procedure William Messina DO Work Phone: Cardiology Comment on above: Aortic stenosis with bicuspid valve (Primary Dx); Essential hypertension Start: 07-28-2021 Refill Mirian Andujar MD Work Phone: Pulmonary Medicine Comment on above: Refill Request (symb icort ) Start: 07-25-2021 End: 07-25-2021 Anticoagulant drug [facility]: [facility] Comment on above: Personal history of DVT (deep vein thrombosis) (Primary Dx) Start: 07-11-2021 End: 07-11-2021 Office outpatient visit 25 minutes Claudine Durán MD Work Phone: [facility] [place] Comment on above: Gastroesophageal ref lux disease without esophagitis (Primary Dx); Other viral warts; Elevated LDL cholesterol level; Essential hypertension; Need for COVID-19 vaccine; COPD without exacerbation (HCC); Bronchiectasis without complication (HCC) Start: 07-07-2021 End: 07-07-2021 Patient encounter procedure [facility] Start: 06-29-2021 ambulatory Gold Coy RN [employer] Maintainer Management Comment on above: Community Monitoring Outreach (COPD CDM Outreach) Start: 06-09-2021 End: 06-09-2021 Anticoagulant drug monitoring [facility] Work Phone: [facility] Comment on above: Embolism and thrombo sis (HCC) Start: 06-04-2021 Refill Claudine tavares MD Work Phone: [facility] [place] Comment on above: Refill Request Start: 2021 End: 2021 Patient encounter procedure Mirian Andujar MD Work Phone: Pulmonary Medicine Comment on above: Moderate COPD (chron ic obstructive pulmonary disease) (HCC) (Primary Dx); Bronchiectasis without complication (HCC); Centrilobular emphysema (HCC) Start: 05-26-2021 End: 05-26-2021 Anticoagulant drug monitoring [facility] Work Phone: [facility] [place] Comment on above: Embolism and thrombo sis (HCC) Start: 05-20-2021 ambulatory Nara (Pss) [facility] [place] Comment on above: Population Health Na vigation [...] encounter procedure Will Hurley [facility] Start: 10-02-2014 End: 10-03-2014 Ambulatory Mykel Santamaria Facility:[facility] Procedures Date Procedure Procedure Detail [...] red blood cell count procedure Dr. Claudine uDrán MD Work Phone: Start: 10-09-2024 Platelet mean [...] exam chest 2 views Leandra Elmore linda SEAM SEWER.MUSHROOM GROWTH MEDIA MIXER Work Phone: Start: 03-25-2024 Rp loclzj mary spect w/ct 1 area 1 day imaging Monicadenise eNwman-Ponchohochristofer SEAM SEWER.AGENT BASED MODELER Work Phone: Start: 03-25-2024 Spmtry w/vc expiratory milton w/wo mxml vol vntj Monica Chelan-Ponchohochristofer SEAM SEWER.AGENT BASED MODELER Work Phone: Start: 03-21-2024 Radiologic exam chest 2 views Monicadenise Newman-Ponchohochristofer SEAM SEWER.AGENT BASED MODELER Work Phone: Start: 03-21-2024 Ct angiography chest w/contrast/noncontrast Monica Trent-Ponchohochristofer SEAM SEWER.AGENT BASED MODELER Work Phone: Start: 03-21-2024 Ct angio abd&plvis cntrst mtrl w/wo cntrst img Monica Chelan-Palshook SEAM SEWER.AGENT BASED MODELER Work Phone: Start: 03-21-2024 Creatinine [Mass/volume] in [...] A/B & RSV NAAT, ROUTINE Adri Zaragoza SEAM SEWER.AGENT BASED MODELER Work Phone: Start: 02-07-2023 Radiologic exam chest 2 views Adri de la rosa SEAM SEWER.AGENT BASED MODELER Work Phone: Start: 01-04-2023 PFIZER-BIONTECH COVID-19 VACCINE (2022- SEASON) AGE 12+ YR Jimbo Swanson SEAM SEWER.MUSHROOM GROWTH MEDIA MIXER Work Phone: Start: 01-04-2023 Prothrombin time Jimbo Swanson SEAM SEWER.MUSHROOM GROWTH MEDIA MIXER Work Phone: Start: 11-17-2022 Screening digital breast tomosynthesis bi [facility] SEAM SEWER.MUSHROOM GROWTH MEDIA MIXER Work Phone: Start: 10-27-2022 INFLUENZA VACCINE, PRSV FREE, AGE 65+ YR, HIGH DOSE, QUADRIVALENT (FLUZONE HIGH-DOSE) [facility] SEAM SEWER.MUSHROOM GROWTH MEDIA MIXER Work Phone: Start: 08-29-2022 Ecg routine ecg w/least 12 lds i&r only [facility] Provider Start: 07-20-2022 Ct thorax w/o contrast material Meche Collins MD Work Phone: Start: 12-31-2021 Radex hip unilateral with pelvis 2-3 views Ernie Belcher SEAM SEWER.AGENT BASED MODELER Work Phone: Start: 11-10-2021 INFLUENZA SEASONAL QUADRIVALENT HIGH DOSE AGE 65+ Jimbo Sans SEAM SEWER.MUSHROOM GROWTH MEDIA MIXER Work Phone: Start: 11-10-2021 PFIZER-BIONTECH COVID-19 BIVALENT BOOSTER VACCINE, AGE 12+ YR Jimbo Sans SEAM SEWER.MUSHROOM GROWTH MEDIA MIXER Work Phone: Start: 11-10-2021 Adult depression screening assessment Jimbo Sans SEAM SEWER.MUSHROOM GROWTH MEDIA MIXER Work Phone: Start: 10-18-2021 Radex foot complete minimum 3 views Shilo hew Testrake Work Phone: Start: 10-12-2021 Diagnostic mammography computer-aided detcj uni [facility] SEAM SEWER.AGENT BASED MODELER Work Phone: Start: 09-05-2021 End: 09-05-2021 Screening mammography bi 2-view breast inc cad [facility] SEAM SEWER.AGENT BASED MODELER Work Phone: Start: 07-11-2021 PFIZER-BIONTECH COVID-19 VACCINE, AGE 12+ YR (ARIAS TOP) Claudine Durán MD Work Phone: Start: 07-07-2021 Lipid 1996 panel - Serum or Plasma Ashly Shay RN Start: 07-13-2020 Adult depression screening assessment Nara Talavera Start: 06-01-2020 Mammography Nara Talavera Start: 03-24-2019 Colonoscopy Nara Talavera Plan of Treatment Date Care Activity Detail Author Start: 11-05-2029 Urine microalbumin profile [facility] Start: 03-24-2029 Colonoscopy COLONOSCOPY [facility] Start: 03-24-2029 COLORECTAL CANCER SCREENING COLORECTAL CANCER SCREENING [facility] Start: 03-24-2029 Screening for malignant neoplasm of colon [facility] Start: 07-23-2027 Diabetes Screening Diabetes Screening [facility] Start: 05-04-2027 Diabetes Screening Diabetes Screening [facility] Start: 05-01-2027 Diabetes Screening Diabetes Screening [facility] Start: 03-24-2027 Diabetes Screening Diabetes Screening [facility] Start: 03-21-2027 Diabetes Screening Diabetes Screening [facility] Start: 10-10-2026 Diabetes Screening Diabetes Screening [facility] Start: 08-29-2026 Diabetes Screening Diabetes Screening [facility] Start: 08-21-2026 Diabetes Screening Diabetes Screening [facility] Start: 07-07-2026 Lipid 1996 panel - Serum or Plasma Lipid Screening [facility] Start: 07-07-2026 Lipid panel Lipid Screening [facility] Start: 07-07-2026 LIPID SCREEN LIPID SCREEN [facility] Start: 06-04-2026 Diabetes Screening Diabetes Screening [facility] Start: 03-25-2026 Diabetes Screening Diabetes Screening [facility] Start: 03-22-2026 Diabetes Screening Diabetes Screening [facility] Start: 11-23-2025 End: 11-23-2025 Patient encounter procedure 11/23/2025 1:00 PM EDT Office Visit [facility] [place] [address] [place] [address] Claudine Durán MD [address] [place] [address] Medicare Wellness [facility] [place] Comment on above: Medicare Wellness Start: 10-24-2025 Annual PCP Team Chronic Disease Visit Annual PCP Team Chronic Disease Visit [facility] Start: 05-26-2025 End: 05-26-2025 Patient encounter procedure 05/26/2025 9:00 AM EDT Office Visit [facility] [place] [address] [place] [address] Jimbo Swanson APRN.MUSHROOM GROWTH MEDIA MIXER [address] [place] [address] Medicare Wellness [facility] [place] Comment on above: Medicare Wellness Start: 05-20-2025 Annual PCP Team Chronic Disease Visit Annual PCP Team Chronic Disease Visit [facility] Start: 05-20-2025 BP Controlled (<130/80) BP Controlled (<130/80) [facility] Start: 05-20-2025 zzBP Controlled (<130/80) (Retired) zzBP Controlled (<130/80) (Retired) [facility] Start: 04-30-2025 BP Controlled (<130/80) BP Controlled (<130/80) [facility] Start: 02-28-2025 Annual PCP Team Chronic Disease Visit Annual PCP Team Chronic Disease Visit [facility] Start: 02-28-2025 Anxiety Screening Anxiety Screening [facility] Start: 02-28-2025 Covid-19 Vaccine () Covid-19 Vaccine () [facility] Comment on above: Postponed from 01/17/2024 (Declined at t his time) Postponed from 05/22 (Declined at this time) Start: 02-28-2025 Covid-19 Vaccine (9 - Pfizer risk ) Covid-19 Vaccine (9 - Pfizer risk ) [facility] Comment on above: Postponed from 05/22/2024 (Declined at t his time) Start: 02-28-2025 Depression Screening Depression Screening [facility] Start: 01-01-2025 BP Controlled (<130/80) BP Controlled (<130/80) [facility] Start: 10-27-2024 End: 10-27-2024 Patient encounter procedure 10/27/2024 10:00 AM EDT Office Visit [facility] [address] [address] Geno Hart MD [address] [place] [address] Return in about 6 months (around 10/22/2024). [facility] Comment on above: Return in about 6 months (around ). Start: 10-20-2024 Influenza vaccination Influenza Vaccine (#1) [facility] Start: 10-19-2024 [facility] Start: 10-17-2024 BP Controlled (<130/80) BP Controlled (<130/80) [facility] Start: 10-10-2024 BP Controlled (<130/80) BP Controlled (<130/80) [facility] Start: 10-02-2024 [facility] Start: 09-03-2024 End: 09-03-2024 Anticoagulant drug monitoring 09/03/2024 10:00 AM EDT [facility] [address] [place] [address] Wstr, An[facility] [place] [address] [place] [address] inr [facility] [place] Comment on above: inr Start: 08-29-2024 Prothrombin time [facility] Start: 08-28-2024 Prothrombin time [facility] Start: 08-27-2024 BP Controlled (<130/80) BP Controlled (<130/80) [facility] Start: 08-27-2024 Patient discharge [facility] Start: 08-26-2024 BP Controlled (<130/80) BP Controlled (<130/80) [facility] Start: 08-26-2024 Care planning and problem solving actions [facility] Start: 08-26-2024 Prothrombin time [facility] Start: 08-25-2024 Care planning and problem solving actions [facility] Start: 08-25-2024 Prothrombin time [facility] Start: 08-25-2024 [facility] Start: 08-24-2024 Prothrombin time [facility] Start: 08-23-2024 Application short arm splint forearm-hand static [facility] Start: 08-23-2024 Following clinical pathway protocol [facility] Start: 08-23-2024 Ambulation without limitation [facility] Start: 08-23-2024 Assessment of risk of venous thromboembolism [facility] Start: 08-23-2024 Consultation [facility] Start: 08-23-2024 Incentive spirometry [facility] Start: 08-23-2024 Insertion of catheter into peripheral vein [facility] Start: 08-23-2024 Measuring intake and output [facility] Start: 08-23-2024 Providing care according to standard [facility] Start: 08-23-2024 Referral to occupational therapist [facility] Start: 08-23-2024 Referral to service [facility] Start: 08-23-2024 [facility] Start: 08-23-2024 Verification routine [facility] Start: 08-23-2024 Admission procedure [facility] Start: 08-23-2024 Inhalation therapy procedure [facility] Start: 08-23-2024 [facility] Start: 08-21-2024 Annual PCP Team Chronic Disease Visit Annual PCP Team Chronic Disease Visit [facility] Start: 08-21-2024 BP Controlled (<130/80) BP Controlled (<130/80) [facility] Start: 08-21-2024 End: 08-21-2024 Anticoagulant drug monitoring 08/21/2024 10:30 AM EDT Antico[facility] [address] [place] [address] Wstr, [facility] [place] [address] [facility] [place] [address] inr [facility] [place] Comment on above: inr Start: 08-07-2024 Annual PCP Team Chronic Disease Visit Annual PCP Team Chronic Disease Visit [facility] Start: 08-06-2024 End: 08-06-2024 Anticoagulant drug monitoring 08/06/2024 10:30 AM EDT Anticoagulation Visit [facility] [address] [facility] [place] [facility] [place] [address] Wstr, [facility] [place] [address] [facility] [place] [address] inr [facility] [place] Comment on above: inr Start: 07-22-2024 End: 07-22-2024 Patient encounter procedure Cardiology Comment on above: S/P TAVR Start: 07-22-2024 End: 07-22-2024 ambulatory [facility] J1-4 Dra mikal [facility] Comment on above: LAB S/P TAVR Start: 07-21-2024 End: 07-21-2024 Anticoagulant drug monitoring 07/21/2024 10:30 AM EDT Anticoagulation Visit [facility] [address] [place] [address] Wstr, An[facility] [place] [address] [place] [address] inr [facility] [place] Comment on above: inr Start: 07-09-2024 BP Controlled (<130/80) BP Controlled (<130/80) [facility] Start: 07-07-2024 End: 07-07-2024 Anticoagulant drug monitoring 07/07/2024 10:30 AM EDT Anticoagulation Visit [facility] [address] [place], [place] [phone] Wstr, Antico[facility] [place] [address] [place], [place] [address] inr Coumad[facility] Comment on above: inr Start: 06-16-2024 End: 09-15-2024 HISTOPLASMA AG URINE HISTOPLASMA AG URINE Lab Routine Disseminated histoplasmosis Expected: 06/16/2024, Expires: 09/15/2024 [facility] Work Phone: Comment on above: Expected: 06/16/2024, Expires: Start: 06-04-2024 Annual PCP Team Chronic Disease Visit Annual PCP Team Chronic Disease Visit [facility] Start: 06-04-2024 BP Controlled (<130/80) BP Controlled (<130/80) [facility] Start: 06-03-2024 End: 06-03-2024 Anticoagulant drug monitoring 06/03/2024 2:30 PM EDT Anticoagulation Visit [facility] [address] [place], [place] [id number] Wstr, Antico[facility] [place] [address] [place], [place] [address] inr [facility] [place] Comment on above: inr Start: 05-20-2024 End: 05-20-2024 Patient encounter procedure 05/20/2024 1:00 PM EDT Office Visit [facility] [place] [address] [place], [place] [address] Jimbo Swanson APRN.MUSHROOM GROWTH MEDIA MIXER [address] [facility] [place] [address] Medicare Wellness [facility] [place] Comment on above: Medicare Wellness Start: 05-20-2024 End: 05-20-2024 Anticoagulant drug monitoring 05/20/2024 12:30 PM EDT Anticoagulation Visit [facility] [place] [address] [place] [address] Wstr, [facility] [place] [address] [facility] [place] [address] inr [facility] [place] Comment on above: inr Start: 05-05-2024 End: 05-05-2024 Patient encounter procedure Cardiology Comment on above: S/P TAVR Start: 05-02-2024 End: 08-01-2024 CBC W Auto Differential panel - Blood COMPLETE BLOOD COUNT AND DIFFERENTIAL Lab STAT Nonrheumatic aortic valve stenosis Aortic valve disorder Expected: 05/02/2024 (Approximate), Expires: 08/01/2024 [facility] Comment on above: Expected: 05/02/2024 (Approximate), Expi res: 08/01/2024 Start: 05-02-2024 End: 08-01-2024 Comprehensive metabolic 2000 panel - Serum or Plasma COMPREHENSIVE METABOLIC PANEL Lab STAT Nonrheumatic aortic valve stenosis Aortic valve disorder Expected: 05/02/2024 (Approximate), Expires: 08/01/2024 [facility] Comment on above: Expected: 05/02/2024 (Approximate), Expi res: 08/01/2024 Start: 05-02-2024 End: 08-01-2024 CONFIRM BLOOD TYPE CONFIRM BLOOD TYPE Blood Bank STAT Nonrheumatic aortic valve stenosis Aortic valve disorder Expected: 05/02/2024 (Approximate), Expires: 08/01/2024 [facility] Comment on above: Expected: 05/02/2024 (Approximate), Expi res: 08/01/2024 Start: 05-02-2024 End: 08-01-2024 Natriuretic peptide.B prohormone N-Terminal [Mass/volume] in Serum or Plasma NT PRO BNP Lab STAT Nonrheumatic aortic valve stenosis Aortic valve disorder Expected: 05/02/2024 (Approximate), Expires: 08/01/2024 [facility] Comment on above: Expected: 05/02/2024 (Approximate), Expi res: 08/01/2024 Start: 05-02-2024 End: 08-01-2024 PT panel - Platelet poor plasma by Coagulation assay PROTHROMBIN TIME Lab STAT Nonrheumatic aortic valve stenosis Aortic valve disorder Expected: 05/02/2024 (Approximate), Expires: 08/01/2024 [facility] Comment on above: Expected: 05/02/2024 (Approximate), Expi res: 08/01/2024 Start: 05-02-2024 End: 08-01-2024 TYPE AND SCREEN,30 DAY TYPE AND SCREEN,30 DAY Blood Bank STAT Nonrheumatic aortic valve stenosis Aortic valve disorder Expected: 05/02/2024 (Approximate), Expires: 08/01/2024 [facility] Comment on above: Expected: 05/02/2024 (Approximate), Expi res: 08/01/2024 Start: 05-02-2024 End: 05-02-2024 Replace aortic valve perq femoral artry approach TRANSCATHETER AORTIC VALVE REPLACEMENT (TAVR/ROLA) W/ PROSTHETIC VALVE PERCUTANEOUS FEMORAL ARTERY APPROACH Aortic valve stenosis, etiology of cardiac valve disease unspecified 05/02/2024 10:32 AM EDT TELMA PE[facility]A CT [facility] VAS Start: 05-02-2024 End: 05-02-2024 Patient encounter procedure 05/02/2024 8:45 AM EDT Office Visit Cardiology [address] [place] [address] COMMERCIAL TF- TAVR ( CARLYN) Cardiology Comment on above: COMMERCIAL TF- TAVR ( CARLYN) Start: 05-02-2024 End: 05-02-2024 ambulatory 05/02/2024 8:30 AM EDT Procedure Cardiology [address] [place] [id number] COMMERCIAL TF- TAVR ( CARLYN) Cardiology Comment on above: COMMERCIAL TF- TAVR ( CARLYN) Start: 05-02-2024 End: 05-02-2024 Anesthesia consultation 05/02/2024 8:00 AM EDT Anesthesia Event Admitting [address] [place] [address] Nara Mcnair APRN.FIELD ENGINEER [address] [facility] [place] [address] Admitting Start: 05-02-2024 End: 05-02-2024 Admission to same day surgery center Admitting Comment on above: TRANSCATHETER AORTIC VALVE REPLACEMENT ( TAVR/ROLA) W/ PROSTHETIC VALVE PERCUTANEOUS FEMORAL ARTERY APPROACH Start: 05-02-2024 End: 05-02-2024 Replace aortic valve perq femoral artry approach PEÑA CT & VAS Start: 05-02-2024 Subsequent hospital visit by physician Admitting Comment on above: COMMERCIAL TF- TAVR ( CARLYN), Procedure o n: Thursday May 02, 2024 at 8:30 am Start: 05-01-2024 End: 05-01-2024 Anticoagulant drug monitoring 05/01/2024 11:30 AM EDT Anticoagulation Visit [facility] [address] [place], [place] [id number] Wstr, Anticoag [facility] [place] [address] [place] [address] inr [facility] [place] Comment on above: inr Start: 04-30-2024 End: 04-30-2024 Patient encounter procedure 04/30/2024 2:20 PM EDT Office Visit Cardiothoracic [address] [place] [phone] COMMERCIAL TF- TAVR ( CARLYN) Cardiothoracic Comment on above: COMMERCIAL TF- TAVR ( CARLYN) Start: 04-30-2024 End: 04-30-2024 Patient encounter procedure Cardiology Comment on above: COMMERCIAL TF- TAVR ( CARLYN) Start: 04-30-2024 End: 04-30-2024 ambulatory 04/30/2024 11:00 AM EDT Results Only [facility] [place] [facility] [address] [id number] COMMERCIAL TF- TAVR ( CARLYN) [facility] [place] [facility] Comment on above: COMMERCIAL TF- TAVR ( CARLYN) Start: 04-21-2024 End: 04-21-2024 Patient encounter procedure 04/21/2024 11:00 AM EST Office Visit [facility] [address] [place] [address] Geno Hart MD [address] [place] [address] Return in about 4 months (around 04/18/2024). [facility] Comment on above: Return in about 4 months (around 04/18/19). Start: 04-03-2024 End: 04-03-2024 Anticoagulant drug monitoring 04/03/2024 11:30 AM EST Anticoagulation Visit [facility] [address] [place], [place] [id number] [place]str, An[facility] [place] [address] [place], [place] [id number] inr [facility] [place] Comment on above: inr Start: 03-25-2024 End: 03-25-2024 Patient encounter procedure Cardiology Comment on above: New TAVR Workup NM SPECT/CT CARDIAC AMYLOID Start: 03-25-2024 End: 03-25-2024 ambulatory Pulmonary Medicine Comment on above: New TAVR Workup Start: 03-24-2024 End: 03-24-2024 Admission to same day surgery center 03/24/2024 5:45 PM EST - 03/24/2024 6:53 PM EST Surgery HOSP Toll Operator [address] [facility] [place] [address] Michael Beavers MD [address] [place] [address]ON[address] W IMAGE INJECT & INTERP W LT HEART CATH W INJECT LT VENTRGRAPHY HOSP Toll Operator Comment on above: CORONARY ANGIO W [...] aortic valve stenosis 03/24/2024 5:45 PM EST TEACHER'S AIDE Start: 03-24-2024 Subsequent hospital visit by physician 03/24/2024 5:45 PM EST Hospital Encounter HOSP Toll Operator [address] [place] [address] Michael Beavers MD [address] [place] [address] Nonrheumatic aortic valve stenosis [I35.0] HOSP Toll Operator Comment on above: Nonrheumatic aortic valve stenosis [I35. 0] Start: 03-24-2024 End: 03-24-2024 Patient encounter procedure 03/24/2024 10:00 AM EST Office Visit Admitting [address] [place] [address] ADMIT Admitting Comment on above: ADMIT Start: 03-24-2024 End: 03-24-2024 ambulatory Cardiology Comment on above: [facility] Start: 03-21-2024 End: 03-21-2024 ambulatory [facility] J1-4 Dra mikal [facility] Comment on above: New TAVR Workup Start: 03-21-2024 End: 03-21-2024 Patient encounter procedure Radiology Comment on above: New TAVR Workup Start: 03-21-2024 End: 03-21-2024 Patient encounter procedure 03/21/2024 9:30 AM EST Office Visit Cardiology [address] [place] [address] [place] [address] [address] [place], [place] [phone] Clinician, Interventional [address] [place] [address] New TAVR Workup Cardiology Comment on above: New TAVR Workup Start: 03-03-2024 BP Controlled (<130/80) BP Controlled (<130/80) [facility]ic Start: 02-29-2024 End: 02-29-2024 Patient encounter procedure 02/29/2024 3:40 PM EST Office Visit [facility] [place] [address] [place], [place] [address] Claudine Durán MD [address] [place] [address] 4 Month follow up [facility] [place] Comment on above: 4 Month follow up Start: 02-29-2024 End: 02-29-2024 Anticoagulant drug monitoring 02/29/2024 3:30 PM EST Anticoagulation Visit [facility] [place] [address] [place] [address] Wstr, [facility] [place] [address] [place] [address] inr Coumadin [facility] Comment on above: inr Start: 02-25-2024 End: 02-25-2024 Patient encounter procedure 02/25/2024 12:15 PM EST Office Visit Cardiology [address] [place] [address] Ines Drew MD [address] [place] [address] Aortic valve stenosis, etiology of cardiac valve disease unspecified [I35.0] Cardiology Comment on above: Aortic valve stenosis, etiology of cardi ac valve disease unspecified [I35.0] Start: 02-20-2024 Advance Directive Discussion Advance Directive Discussion [facility] Start: 01-31-2024 End: 01-31-2024 Anticoagulant drug monitoring 01/31/2024 10:30 AM EST Anticoagulation Visit Coumadin [facility] [address] [place] [address] Wstr, [facility] [place] [address] [place] [address] inr Coumadin [facility] Comment on above: inr Start: 01-25-2024 End: 01-25-2024 Patient encounter procedure 01/25/2024 11:20 AM EST Office Visit Cardiology [address] [address] William Messina DO [address] [place] [address] 3 month follow up Cardiology Comment on above: 3 month follow up Start: 01-18-2024 End: 10-17-2024 ECHO LIMITED ECHO LIMITED Cardiology Routine Pericardial effusion Expected: 01/18/2024 (Approximate), Expires: 10/17/2024 [facility] Work Phone: Comment on above: Expected: 01/18/2024 (Approximate), Expi res: 10/17/2024 Start: 01-18-2024 End: 01-18-2024 Patient encounter procedure 01/18/2024 10:30 AM EST Office Visit Cardiology [address] [address] Pericardial effusion [I31.39] Cardiology Comment on above: Pericardial effusion [I31.39] Start: 01-17-2024 Covid-19 Vaccine () Covid-19 Vaccine () [facility] Start: 01-10-2024 End: 01-10-2024 Anticoagulant drug monitoring 01/10/2024 12:00 PM EST Anticoagulation Visit [facility] [place] [address] [place], [place] [phone] Wstr, An[facility] [place] [address] [place], [place] [id number] inr [facility] [place] Comment on above: inr Start: 01-08-2024 End: 04-08-2024 CBC W Auto Differential panel - Blood COMPLETE BLOOD COUNT AND DIFFERENTIAL Lab Routine Nonrheumatic aortic valve stenosis Aortic valve disorder Expected: 01/08/2024, Expires: 04/08/2024 [facility] Comment on above: Expected: 01/08/2024, Expires: Start: 01-08-2024 End: 04-08-2024 Comprehensive metabolic 2000 panel - Serum or Plasma COMPREHENSIVE METABOLIC PANEL Lab Routine Nonrheumatic aortic valve stenosis Aortic valve disorder Expected: 01/08/2024, Expires: 04/08/2024 [facility] Comment on above: Expected: 01/08/2024, Expires: Start: 01-08-2024 End: 04-08-2024 HIGH SENSITIVITY TROPONIN T HIGH SENSITIVITY TROPONIN T Lab Routine Nonrheumatic aortic valve stenosis Expected: 01/08/2024, Expires: 04/08/2024 [facility] Comment on above: Expected: 01/08/2024, Expires: Start: 01-08-2024 End: 04-08-2024 Lipoprotein a [Mass/volume] in Serum or Plasma LIPOPROTEIN (A) Lab Routine Nonrheumatic aortic valve stenosis Expected: 01/08/2024, Expires: 04/08/2024 [facility] Comment on above: Expected: 01/08/2024, Expires: Start: 01-08-2024 End: 04-08-2024 Natriuretic peptide.B prohormone N-Terminal [Mass/volume] in Serum or Plasma NT PRO BNP Lab Routine Nonrheumatic aortic valve stenosis Expected: 01/08/2024, Expires: 04/08/2024 [facility] Comment on above: Expected: 01/08/2024, Expires: 5 Start: 01-08-2024 End: 04-08-2024 PT panel - Platelet poor plasma by Coagulation assay PROTHROMBIN TIME Lab STAT Nonrheumatic aortic valve stenosis Expected: 01/08/2024, Expires: 04/08/2024 [facility] Comment on above: Expected: 01/08/2024, Expires: 5 Start: 01-08-2024 End: 01-08-2024 Patient encounter procedure 01/08/2024 10:30 AM EST Office Visit [facility] [address] [place] [address] Geno Hart MD [address] [place] [address] follow up [facility] Comment on above: follow up Start: 01-05-2024 BP Controlled (<130/80) BP Controlled (<130/80) [facility] Start: 01-02-2024 End: 01-02-2024 Patient encounter procedure 01/02/2024 9:45 AM EST Office Visit Cardiology [address] [phone] Ines Drew MD [address] [place] [address] DX: Aortic valve stenosis, etiology of cardiac valve disease unspecified; Mitral valve stenosis, unspecified etiology Cardiology Comment on above: DX: Aortic valve stenosis, etiology of c ardiac valve disease unspecified; Mitral valve stenosis, unspecified etiology Start: 01-02-2024 End: 01-02-2024 ambulatory 01/02/2024 9:00 AM EST Results Only Cardiology [address] [place] [address] DX: Aortic valve stenosis, etiology of cardiac valve disease unspecified; Mitral valve stenosis, unspecified etiology Cardiology Comment on above: DX: Aortic valve stenosis, etiology of c ardiac valve disease unspecified; Mitral valve stenosis, unspecified etiology Start: 12-27-2023 End: 12-27-2023 Anticoagulant drug monitoring 12/27/2023 10:30 AM EST Anticoagulation Visit [facility] [address] [address] Wstr, Anticoag [facility] [address] [address] inr [facility] [place] Comment on above: inr Start: 12-18-2023 End: 12-18-2023 Patient encounter procedure 12/18/2023 11:00 AM EDT Office Visit [facility] [address] [place] [id number] Geno Hart MD [address] [place] [address] follow up [facility] Comment on above: follow up Start: 12-13-2023 End: 12-13-2023 Anticoagulant drug monitoring 12/13/2023 10:45 AM EDT Anticoagulation Visit [facility] [address] [address] Wstr, Anticoag [facility] [address] [place] [address] inr [facility] [place] Comment on above: inr Start: 11-29-2023 End: 11-29-2023 Anticoagulant drug monitoring 11/29/2023 11:00 AM EDT Anticoagulation Visit [facility] [place] [address] [facility] [place] [address] Wstr, [facility] [address] [facility] [place] [address] inr [facility] [place] Comment on above: inr Start: 11-15-2023 End: 11-15-2023 Anticoagulant drug monitoring 11/15/2023 12:00 PM EDT Anticoagulation Visit [facility] [place] [address] [facility] [place] [address] Wstr, Antico[facility] [address] [place] [address] inr [facility] [place] Comment on above: inr Start: 11-08-2023 End: 11-08-2023 Anticoagulant drug monitoring 11/08/2023 1:00 PM EDT Anticoagulation Visit [facility] [place] [address] [facility] [place] [address] [facility]str[facility] [address] [place] [address] inr [facility] [place] Comment on above: inr Start: 10-28-2023 BP CONTROLLED (<130/80) BP CONTROLLED (<130/80) [facility] Start: 10-25-2023 End: 10-25-2023 Anticoagulant drug monitoring 10/25/2023 12:00 PM EDT Anticoagulation Visit [facility] [place] [address] [facility] [place] [address] Wstr, [facility] [place] [address] [facility] [place] [address] inr [facility] [place] Comment on above: inr Start: 10-21-2023 Covid-19 Vaccine ( season) Covid-19 Vaccine () [facility] Start: 10-21-2023 Covid-19 Vaccine () Covid-19 Vaccine () [facility] Start: 10-21-2023 Influenza vaccination [facility] Start: 10-19-2023 End: 10-19-2023 Anticoagulant drug monitoring 10/19/2023 11:00 AM EDT Anticoagulation Visit [facility] [place] [address] [place] [address] Wstr, [facility] [place] [address] [place] [address] inr [facility] [place] Comment on above: inr Start: 10-18-2023 End: 10-18-2023 Patient encounter procedure 10/18/2023 10:00 AM EDT Office Visit Cardiology [address] [address] Bibi Alegria APRN.AGENT BASED MODELER [address] [place], [place] [phone] 1 month follow up Cardiology Comment on above: 1 month follow up Start: 10-11-2023 End: 10-11-2023 Patient encounter procedure 10/11/2023 1:00 PM EDT Office Visit [facility] [place] [address] [place] [address] Jimbo Swanson APRN.MUSHROOM GROWTH MEDIA MIXER [address] [place], [place] [address] 4Month follow up [facility] [place] Comment on above: 4Month follow up Start: 09-28-2023 End: 09-28-2023 Patient encounter procedure 09/28/2023 10:30 AM EDT Office Visit Cardiology [address] [id number] Nonrheumatic aortic valve stenosis [I35.0] Cardiology Comment on above: Nonrheumatic aortic valve stenosis [I35. 0] Start: 09-27-2023 End: 09-27-2023 Anticoagulant drug monitoring 09/27/2023 10:45 AM EDT Anticoagulation Visit [facility] [place] [address] [facility] [place] [address] Wstr, [facility] [place] [address] [facility] [place] [address] inr [facility] [place] Comment on above: inr Start: 09-20-2023 End: 09-20-2023 Anticoagulant drug monitoring 09/20/2023 10:00 AM EDT Antico[facility] [place] [address] [place] [address] [place], Anticoag [facility] [place] [address] [facility] [place] [address] inr [facility] [place] Comment on above: inr Start: 09-10-2023 End: 12-10-2023 Basic metabolic 2000 panel - Serum or Plasma BASIC METABOLIC PANEL Lab Routine Nonrheumatic aortic valve stenosis Mitral valve stenosis, non-rheumatic Essential hypertension Pericardial effusion (noninflammatory) Leg edema Expected: 09/10/2023, Expires: 12/10/2023 [facility] Comment on above: Expected: 09/10/2023, Expires: Start: 09-10-2023 End: 12-10-2023 Natriuretic peptide.B prohormone N-Terminal [Mass/volume] in Serum or Plasma NT PRO BNP Lab Routine Nonrheumatic aortic valve stenosis Mitral valve stenosis, non-rheumatic Essential hypertension Pericardial effusion (noninflammatory) Leg edema Expected: 09/10/2023, Expires: 12/10/2023 [facility] Comment on above: Expected: 09/10/2023, Expires: Start: 08-30-2023 End: 08-30-2023 Anticoagulant drug monitoring 08/30/2023 12:45 PM EDT Antico[facility] [address] [place] [address] [place], Anticoag [facility] [place] [address] [place], [place] [id number] inr Coumadin [facility] Comment on above: inr Start: 08-28-2023 End: 11-27-2023 Histoplasma capsulatum Ab [Presence] in Serum by Immune diffusion (ID) HISTOPLASMA AB ID Lab Routine Disseminated histoplasmosis Encounter for long-term (current) use of antibiotics Expected: 08/28/2023, Expires: 11/27/2023 [facility] Work Phone: Comment on above: Expected: 08/28/2023, Expires: Start: 08-28-2023 End: 08-28-2023 Patient encounter procedure 08/28/2023 9:00 AM EDT Office Visit [facility] [address] [phone] Geno Hart MD [address] [facility] [address] [place] [phone] follow up [facility] Comment on above: follow up Start: 08-27-2023 End: 08-27-2023 Patient encounter procedure 08/27/2023 8:20 AM EDT Office Visit Cardiology [address] [place] [address] William Messina DO [address] [place] [address] Annual Cardiology Comment on above: Annual Start: 08-22-2023 End: 08-22-2023 Anticoagulant drug monitoring 08/22/2023 9:30 AM EDT Anticoagulation Visit Coumadin [facility] [address] [place], [place] [id number] [place], Anticoag [facility] [place] [address] [place], [place] [id number] inr Coumadin [facility] Comment on above: inr Start: 08-15-2023 End: 11-14-2023 Basic metabolic 2000 panel - Serum or Plasma BASIC METABOLIC PANEL Lab Routine Encounter for therapeutic drug monitoring Expected: 08/15/2023, Expires: 11/14/2023 [facility] Work Phone: Comment on above: Expected: 08/15/2023, Expires: Start: 08-15-2023 End: 08-15-2023 Patient encounter procedure Radiology Comment on above: Right knee Right knee pain/swel ling Start: 08-13-2023 End: 08-13-2023 Patient encounter procedure 08/13/2023 9:20 AM EDT Office Visit Cardiology [address] [place], [place] [phone] William Messina [address] [place], [place] [id number] annual Cardiology Comment on above: annual Start: 08-09-2023 End: 08-09-2023 Anticoagulant drug monitoring 08/09/2023 9:30 AM EDT Antico[facility] [place] [address] [place] [address] [place], Anticoag [facility] [place] [address] [place] [address] inr [facility] Comment on above: inr Start: 07-26-2023 End: 07-26-2023 Anticoagulant drug monitoring 07/26/2023 9:30 AM EDT Anticoagulation [facility] [address] [place] [address] [place], Anticoag [facility] [place] [address] [place] [address] inr [facility] [place] Comment on above: inr Start: 07-21-2023 BP CONTROLLED (<130/80) BP CONTROLLED (<130/80) [facility] in Start: 07-12-2023 End: 07-12-2023 Anticoagulant drug monitoring 07/12/2023 9:00 AM EDT Anticoagulation [facility] [place] [address] [place] [address] [place]str, Anticoag [facility] [place] [address] [place] [address] inr [facility] [place] Comment on above: inr Start: 07-11-2023 End: 07-11-2023 Patient encounter procedure 07/11/2023 12:00 PM EDT Office Visit [facility] [address] [place] [address] Acute pain of right knee [M25.561] [facility] Comment on above: Acute pain of right knee [M25.561] Start: 07-08-2023 DIABETES SCREEN DIABETES SCREEN [facility] Start: 07-08-2023 Diabetes Screening Diabetes Screening [facility] Start: 05-04-2023 Blood chemistry [facility] Start: 04-30-2023 Development of care plan [facility] Start: 04-30-2023 Patient discharge [facility] Start: 04-27-2023 Blood chemistry [facility] Start: 04-20-2023 Blood chemistry [facility] Start: 04-19-2023 Prothrombin time [facility] Start: 04-17-2023 Prothrombin time [facility] Start: 04-15-2023 Wound care [facility] Start: 04-10-2023 Consultation for treatment [facility] Start: 04-09-2023 Speech therapy management [facility] Start: 04-09-2023 Speech therapy assessment [facility] Start: 04-08-2023 [facility] Start: 04-08-2023 Inhalation therapy procedure [facility] Start: 04-06-2023 Development of care plan [facility] Start: 04-06-2023 Developing a treatment plan [facility] Start: 04-05-2023 Admission procedure [facility] Start: 04-05-2023 Measuring intake and output [facility] Start: 04-05-2023 Patient referral to dietitian [facility] Start: 04-05-2023 Referral to occupational therapist [facility] Start: 04-05-2023 Referral to service [facility] Start: 04-05-2023 Vital signs measurements [facility] Start: 04-05-2023 End: 04-05-2023 [facility] Start: 04-05-2023 Verification routine [facility] Start: 04-05-2023 Patient discharge [facility] Start: 04-05-2023 Prothrombin time [facility] Start: 04-04-2023 Application of intermittent pneumatic compression device [facility] Start: 04-04-2023 Application of intermittent pneumatic compression device [facility] Start: 04-04-2023 Consultation [facility] Start: 04-04-2023 Prothrombin time [facility] Start: 04-03-2023 Consultation [facility] Start: 04-03-2023 Prothrombin time [facility] Start: 04-02-2023 Prothrombin time [facility] Start: 04-01-2023 End: 07-01-2023 ALK PHOS ISOENZYM BL ALK PHOS ISOENZYM BL Lab Routine Elevated alkaline phosphatase level Expected: 04/01/2023, Expires: 07/01/2023 [facility] Work Phone: Comment on above: Expected: 04/01/2023, Expires: 4 Start: 04-01-2023 End: 07-01-2023 Comprehensive metabolic 2000 panel - Serum or Plasma COMP METABOLIC PANEL Lab Routine Hypoalbuminemia Elevated alkaline phosphatase level Elevated LFTs Expected: 04/01/2023, Expires: 07/01/2023 [facility] Work Phone: Comment on above: Expected: 04/01/2023, Expires: 4 Start: 04-01-2023 Application of elastic bandage [facility] Start: 04-01-2023 Administration of blood product [facility] Start: 04-01-2023 End: 07-01-2023 CBC W Auto Differential panel - Blood [facility] Comment on above: Expected: 04/01/2023, Expires: 4 Start: 04-01-2023 Magnesium [Mass/volume] in Serum or Plasma [facility] Start: 04-01-2023 Prothrombin time [facility] Start: 04-01-2023 [facility] Start: 04-01-2023 Inhalation therapy procedure [facility] Start: 03-31-2023 Following clinical pathway protocol [facility] Start: 03-31-2023 Ankle 2 Views Ankle 2 Views [facility] Start: 03-31-2023 Assessment of risk of venous thromboembolism [facility] Start: 03-31-2023 C reactive protein [Mass/volume] in Serum or Plasma [facility] Start: 03-31-2023 Consultation for treatment [facility] Start: 03-31-2023 Elevation of affected extremity [facility] Start: 03-31-2023 Erythrocyte sedimentation rate [facility] Start: 03-31-2023 Insertion of catheter into peripheral vein [facility] Start: 03-31-2023 Measuring intake and output [facility] Start: 03-31-2023 Providing care according to standard [facility] Start: 03-31-2023 Provision of activity privileges [facility] Start: 03-31-2023 Referral to occupational therapist [facility] Start: 03-31-2023 Referral to service [facility] Start: 03-31-2023 US Heart [facility] Start: 03-31-2023 US.doppler Lower extremity vein [facility] Start: 03-31-2023 XR Ankle 2 Views [facility] Start: 03-31-2023 [facility] Start: 03-31-2023 Verification routine [facility] Start: 03-31-2023 Admission procedure [facility] Start: 03-31-2023 Consultation [facility] Start: 03-31-2023 Patient referral to dietitian [facility] Start: 03-28-2023 [facility] Start: 03-28-2023 [facility] Start: 03-28-2023 Emergency department visit high/urgent severity [facility] Start: 03-27-2023 Patient discharge [facility] Start: 03-27-2023 [facility] Start: 03-27-2023 [facility] Start: 03-26-2023 Following clinical pathway protocol [facility] Start: 03-26-2023 Assessment of risk of venous thromboembolism [facility] Start: 03-26-2023 Incentive spirometry [facility] Start: 03-26-2023 Insertion of catheter into peripheral vein [facility] Start: 03-26-2023 Measuring intake and output [facility] Start: 03-26-2023 Providing care according to standard [facility] Start: 03-26-2023 Provision of activity privileges [facility] Start: 03-26-2023 Referral to occupational therapist [facility] Start: 03-26-2023 Referral to service [facility] Start: 03-26-2023 [facility] Start: 03-26-2023 Verification routine [facility] Start: 03-26-2023 Admission procedure [facility] Start: 03-26-2023 Hospital admission, emergency, from emergency room, medical nature [facility] Start: 03-26-2023 [facility] Start: 03-26-2023 Inhalation therapy procedure [facility] Start: 03-19-2023 Fresh frozen plasma [facility] Start: 03-19-2023 End: 03-19-2023 [facility] Start: 03-19-2023 Administration of blood product [facility] Start: 03-13-2023 ANNUAL PCP TEAM CHRONIC DISEASE VISIT ANNUAL PCP TEAM CHRONIC DISEASE VISIT [facility] Start: 03-13-2023 BP CONTROLLED (<130/80) BP CONTROLLED (<130/80) [facility] Start: 03-01-2023 Covid-19 Vaccine () Covid-19 Vaccine () [facility] Start: 02-19-2023 Advance Directive Discussion Advance Directive Discussion [facility] Start: 02-19-2023 Behavioral Health Screening Behavioral Health Screening [facility] Start: 02-19-2023 Depression Assessment Depression Assessment [facility] Start: 01-23-2023 End: 08-23-2023 Ct thorax w/o contrast material CT CHEST WO IVCON Radiology Routine Lung nodules Bronchiectasis without complication (HCC) Expected: 01/23/2023, Expires: 08/23/2023 [facility] Work Phone: Comment on above: Expected: 01/23/2023, Expires: Start: 11-29-2022 BP CONTROLLED (<130/80) BP CONTROLLED (<130/80) [facility] Start: 11-10-2022 Adult depression screening assessment DEPRESSION SCREENING [facility] Start: 10-20-2022 Covid-19 Vaccine ( season) Covid-19 Vaccine () [facility] Start: 10-20-2022 Influenza vaccination INFLUENZA (#1) [facility] Start: 09-20-2022 BP CONTROLLED (<130/80) BP CONTROLLED (<130/80) [facility] Start: 09-05-2022 Mammography MAMMOGRAM [facility] Start: 07-11-2022 ANNUAL PCP TEAM CHRONIC DISEASE VISIT ANNUAL PCP TEAM CHRONIC DISEASE VISIT [facility] Start: 07-11-2022 BP CONTROLLED (<130/80) BP CONTROLLED (<130/80) [facility] Start: 03-14-2022 ANNUAL PCP TEAM CHRONIC DISEASE VISIT ANNUAL PCP TEAM CHRONIC DISEASE VISIT [facility] Start: 03-14-2022 BP CONTROLLED (<130/80) BP CONTROLLED (<130/80) [facility] Start: 02-19-2022 ADVANCE DIRECTIVE DISCUSSION ADVANCE DIRECTIVE DISCUSSION [facility] Start: 02-19-2022 DEPRESSION ASSESSMENT DEPRESSION ASSESSMENT [facility] Start: 01-05-2022 COVID-19 VACCINE (7 - Pfizer risk series) COVID-19 VACCINE (7 - Pfizer risk series) [facility] Start: 11-11-2021 COVID-19 VACCINE (5 - Booster for Pfizer series) COVID-19 VACCINE (5 - Booster for Pfizer series) [facility] Start: 11-10-2021 End: 01-10-2022 Alpha 1 antitrypsin [Mass/volume] in Serum or Plasma [id number] Lab Routine Chronic obstructive pulmonary disease, unspecified COPD type (HCC) Expected: 11/10/2021, Expires: 01/10/2022 [facility] Work Phone: Comment on above: Expected: 11/10/2021, Expires: Start: 10-20-2021 Influenza vaccination INFLUENZA (#1) [facility] Start: 07-13-2021 Adult depression screening assessment DEPRESSION SCREENING [facility] Start: 06-01-2021 Mammography MAMMOGRAM [facility] Start: 02-19-2021 ADVANCE DIRECTIVE DISCUSSION ADVANCE DIRECTIVE DISCUSSION [facility] Start: 02-19-2021 DEPRESSION ASSESSMENT DEPRESSION ASSESSMENT [facility] Start: 02-08-2021 COVID-19 VACCINE (4 - Booster for Pfizer series) COVID-19 VACCINE (4 - Booster for Pfizer series) [facility] Start: 12-27-2020 LIPID SCREEN LIPID SCREEN [facility] Start: 08-04-2017 FECAL OCCULT BLOOD FECAL OCCULT BLOOD [facility] Start: 08-04-2017 Screening for malignant neoplasm of colon Fecal Occult Blood [facility] Start: 2007 RSV Vaccine (1 - 1-dose 60+ series) RSV Vaccine (1 - 1-dose 60+ series) [facility] Start: 05-29-1992 COLOGUARD (FIT-DNA) COLOGUARD (FIT-DNA) [facility] Start: 05-29-[address] COLONOGRAPHY [facility] Start: 05-29-1992 Screening for malignant neoplasm of colon [facility] Start: 05-29-1992 SIGMOIDOSCOPY SIGMOIDOSCOPY [facility] Start: 05-29-1977 Zoledronic acid therapy ALPHA-1 ANTITRYPSIN DEFICIENCY SCREENING [facility] Start: 05-29-1965 Anxiety Screening Anxiety Screening [facility] Start: 05-29-1965 BP CONTROLLED (<130/80) BP CONTROLLED (<130/80) [facility] Start: 05-29-1965 Depression Screening Depression Screening [facility] Alanine aminotransfe rase [Enzymatic activity/volume] in Serum or Plasma [facility] Albumin [Mass/volume ] in Serum or Plasma [facility] Alkaline phosphatase [Enzymatic activity/volume] in Serum or Plasma [facility] Anion gap in Serum o r Plasma [facility] Anion gap measurement [facility] Anion gap measurement [facility] Anion gap measurement [facility] Anion gap measurement [facility] Aspartate aminotransferase [Enzymatic activity/volume] in Serum or Plasma [facility] End: 08-21-2024 Basic metabolic 2000 panel - Serum or Plasma BASIC METABOLIC PANEL Lab Routine Encounter for long-term current use of medication 20 Occurrences starting 08/22/2023 until 08/21/2024 [facility] Work Phone: Comment on above: 20 Occurrences starting 08/22/2023 until 08/21/2024 Bilirubin measuremen t, urine [facility] Bilirubin, total measurement [facility] BUN/Creatinine ratio [facility] BUN/Creatinine ratio [facility] BUN/Creatinine ratio [facility] BUN/Creatinine ratio [facility] BUN/Creatinine ratio [facility] Calcium [Mass/volume ] in Serum or Plasma [facility] Calcium [Mass/volume ] in Serum or Plasma [facility] Calcium [Mass/volume ] in Serum or Plasma [facility] Calcium [Mass/volume ] in Serum or Plasma [facility] Calcium [Mass/volume ] in Serum or Plasma [facility] Carbon dioxide, tota l [Moles/volume] in Central venous blood [facility] Carbon dioxide, tota l [Moles/volume] in Serum or Plasma [facility] Carbon dioxide, tota l [Moles/volume] in Serum or Plasma [facility] Carbon dioxide, tota l [Moles/volume] in Serum or Plasma [facility] Carbon dioxide, tota l [Moles/volume] in Serum or Plasma [facility] CARDIAC REHAB II OUT PT ([place], [place]) CARDIAC REHAB II OUTPT ([place], [place]) BIC Routine Nonrheumatic aortic valve 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) Ordered: 05/05/2024 [facility] Work Phone: Comment on above: Ordered: 05/05/2024 Chloride [Moles/volu me] in Serum or Plasma [facility] Chloride [Moles/volu me] in Serum or Plasma [facility] Chloride [Moles/volu me] in Serum or Plasma [facility] Chloride [Moles/volu me] in Serum or Plasma [facility] Creatinine [Mass/vol ume] in Serum or Plasma [facility] Creatinine [Moles/volume] in Serum or Plasma [facility] Creatinine [Moles/volume] in Serum or Plasma [facility] Creatinine [Moles/volume] in Serum or Plasma [facility] Creatinine [Moles/volume] in Serum or Plasma [facility] CT Chest WO contrast CT CHEST WO IVCON Radiology Routine Disseminated histoplasmosis 08/30/2023 2:07 PM EDT [facility] Work Phone: End: 09-26-2024 CT Chest WO contrast CT CHEST WO IVCON Radiology Routine Disseminated histoplasmosis 1 Occurrences starting 08/28/2023 until 09/26/2024 [facility] Comment on above: 1 Occurrences starting 08/28/2023 until 09/26/2024 End: 12-29-2022 Ct thorax w/o contrast material CT CHEST WO IVCON Radiology Routine Lung nodules 1 Occurrences starting 11/29/2021 until 12/29/2022 [facility] Work Phone: Comment on above: 1 Occurrences starting 11/29/2021 until 12/29/2022 End: 02-06-2025 CTA Chest vessels and Abdominal vessels and Pelvis vessels W contrast IV CTA CHEST/ABD/PEL (GATED) W IVCON Radiology Routine Nonrheumatic aortic valve stenosis Encounter for preprocedural cardiovascular examination 1 Occurrences starting 01/08/2024 until 02/06/2025 [facility] Comment on above: 1 Occurrences starting 01/08/2024 until 02/06/2025 End: 08-12-2022 ECG COMPLETE ECG COMPLETE ECG Routine Aortic stenosis with bicuspid valve Essential hypertension 1 Occurrences starting 08/12/2021 until 08/12/2022 [facility] Work Phone: Comment on above: 1 Occurrences starting 08/12/2021 until 08/12/2022 End: 01-07-2025 ECG COMPLETE ECG COMPLETE ECG Routine Nonrheumatic aortic valve stenosis Aortic valve disorder 1 Occurrences starting 01/08/2024 until 01/07/2025 [facility] Comment on above: 1 Occurrences starting 01/08/2024 until 01/07/2025 End: 04-15-2025 ECG COMPLETE ECG COMPLETE ECG Routine Nonrheumatic aortic valve stenosis Aortic valve disorder 1 Occurrences starting 04/15/2024 until 04/15/2025 [facility] Work Phone: Comment on above: 1 Occurrences starting 04/15/2024 until 04/15/2025 End: 05-02-2025 ECG COMPLETE ECG COMPLETE ECG Routine Nonrheumatic aortic valve stenosis 1 Occurrences starting 05/02/2024 until 05/02/2025 [facility] Work Phone: Comment on above: 1 Occurrences starting 05/02/2024 until 05/02/2025 End: 08-26-2024 ECHO LIMITED ECHO LIMITED Cardiology Routine Nonrheumatic aortic valve stenosis Mitral valve stenosis, non-rheumatic Essential hypertension Pericardial effusion (noninflammatory) 1 Occurrences starting 08/27/2023 until 08/26/2024 [facility] Work Phone: Comment on above: 1 Occurrences starting 08/27/2023 until 08/26/2024 End: 08-12-2022 Echocardiography ECHO Cardiology Routine Aortic stenosis with bicuspid valve Essential hypertension 1 Occurrences starting 08/12/2021 until 08/12/2022 [facility] Work Phone: Comment on above: 1 Occurrences starting 08/12/2021 until 08/12/2022 End: 08-30-2023 Echocardiography ECHO Cardiology Routine Aortic stenosis with bicuspid valve 1 Occurrences starting 08/29/2022 until 08/30/2023 [facility] Work Phone: Comment on above: 1 Occurrences starting 08/29/2022 until 08/30/2023 End: 01-07-2025 Echocardiography ECHO Cardiology Routine Nonrheumatic aortic valve stenosis Aortic valve disorder 1 Occurrences starting 01/08/2024 until 01/07/2025 [facility] Comment on above: 1 Occurrences starting 01/08/2024 until 01/07/2025 Erythrocyte mean corpuscular volume determination [facility] Erythrocyte mean corpuscular volume determination [facility] Glucose [Mass/volume ] in Serum or Plasma [facility] Glucose [Mass/volume ] in Serum or Plasma [facility] Glucose [Mass/volume ] in Serum or Plasma [facility] Glucose [Mass/volume ] in Serum or Plasma [facility] Glucose [Mass/volume ] in Serum or Plasma [facility] Hematocrit [Volume Fraction] of Blood [facility] Hematocrit [Volume Fraction] of Blood [facility] Hemoglobin [Mass/vol ume] in Blood [facility] Hemoglobin [Mass/vol ume] in Blood [facility] Hemoglobin [Presence ] in Urine [facility] Histoplasma capsulat um Ab [Presence] in Serum by Immune diffusion (ID) HISTOPLASMA AB ID Lab Routine Disseminated histoplasmosis Encounter for long-term (current) use of antibiotics 08/30/2023 1:14 PM EDT [facility] INR in Blood by Coagulation assay [facility] INR in Blood by Coagulation assay [facility] INR in Blood by Coagulation assay [facility] INR in Blood by Coagulation assay [facility] INR in Blood by Coagulation assay [facility] INR in Blood by Coagulation assay [facility] INR in Blood by Coagulation assay [facility] INR in Blood by Coagulation assay [facility] INR in Blood by Coagulation assay [facility] INR in Blood by Coagulation assay [facility] INR in Blood by Coagulation assay [facility] End: 10-27-2022 INR in Platelet poor plasma by Coagulation assay INR (POC) Lab Routine Personal history of DVT (deep vein thrombosis) Once per month for 99 Occurrences starting 11/09/2021 until 10/27/2022 [facility] Work Phone: Comment on above: Once per month for 99 Occurrences starti ng 11/09/2021 until 10/27/2022 End: 11-10-2023 INR in Platelet poor plasma by Coagulation assay INR (POC) Lab Routine Personal history of DVT (deep vein thrombosis) Once per month for 99 Occurrences starting 11/09/2022 until 11/10/2023 [facility] Work Phone: Comment on above: Once per month for 99 Occurrences starti ng 11/09/2022 until 11/10/2023 End: 11-14-2024 INR in Platelet poor plasma by Coagulation assay INR (POC) Lab Routine Personal history of DVT (deep vein thrombosis) Once per month for 99 Occurrences starting 11/15/2023 until 11/14/2024 [facility] Work Phone: Comment on above: Once per month for 99 Occurrences starti ng 11/15/2023 until 11/14/2024 Leukocytes [#/volume ] in Blood [facility] Leukocytes [#/volume ] in Blood [facility] End: 03-14-2022 LIPID PANEL BASIC LIPID PANEL BASIC Lab Routine Essential hypertension 1 Occurrences starting 03/14/2021 until 03/14/2022 [facility] Work Phone: Comment on above: 1 Occurrences starting 03/14/2021 until 03/14/2022 End: 02-06-2025 LUNG DIFFUSION CAPACITY (DLCO) LUNG DIFFUSION CAPACITY (DLCO) PFT Routine Nonrheumatic aortic valve stenosis 1 Occurrences starting 01/08/2024 until 02/06/2025 [facility] Comment on above: 1 Occurrences starting 01/08/2024 until 02/06/2025 LUNG DIFFUSION CAPAC ITY (DLCO) LUNG DIFFUSION CAPACITY (DLCO) PFT Routine Nonrheumatic aortic valve stenosis 03/25/2024 9:28 AM EST [facility] Work Phone: End: 11-26-2023 SABINO SCREENING SABINO SCREENING Radiology Routine Encounter for screening mammogram for breast cancer 1 Occurrences starting 10/27/2022 until 11/26/2023 [facility] Work Phone: Comment on above: 1 Occurrences starting 10/27/2022 until 11/26/2023 End: 11-26-2023 SABINO SCREENING W ALIZE SABINO SCREENING W ALIZE Radiology Routine Encounter for screening mammogram for breast cancer 1 Occurrences starting 10/27/2022 until 11/26/2023 [facility] Work Phone: Comment on above: 1 Occurrences starting 10/27/2022 until 11/26/2023 Mean corpuscular hemoglobin concentration determination [facility] Mean corpuscular hemoglobin concentration determination [facility] Mean corpuscular hemoglobin determination [facility] Mean corpuscular hemoglobin determination [facility] Measurement of keton es in urine using dipstick [facility] Measurement of renal function [facility] Measurement of renal function [facility] Measurement of renal function [facility] Measurement of renal function [facility] Measurement of renal function [facility] Microscopic urinalysis [facility] Microscopic urinalysis [facility] Neutrophil count [facility] Neutrophil count [facility] Neutrophil percent differential count [facility] Neutrophil percent differential count [facility] Organism count, microscopic method [facility] Patient Education [facility] Work Phone: Patient referral [facility] Work Phone: pH of Urine [facility] Platelets [#/volume] in Blood [facility] Platelets [#/volume] in Blood [facility] Potassium [Moles/vol ume] in Serum or Plasma [facility] Potassium [Moles/vol ume] in Serum or Plasma [facility] Potassium [Moles/vol ume] in Serum or Plasma [facility] Potassium [Moles/vol ume] in Serum or Plasma [facility] Potassium measurement [facility] Prothrombin time [facility] End: 10-27-2022 PT panel - Platelet poor plasma by Coagulation assay PROTHROMBIN TIME/PT Lab STAT Personal history of DVT (deep vein thrombosis) Once per month for 99 Occurrences starting 11/09/2021 until 10/27/2022 [facility] Work Phone: Comment on above: Once per month for 99 Occurrences starti ng 11/09/2021 until 10/27/2022 End: 11-09-2023 PT panel - Platelet poor plasma by Coagulation assay PROTHROMBIN TIME/PT Lab STAT Personal history of DVT (deep vein thrombosis) Once per month for 99 Occurrences starting 11/09/2022 until 11/09/2023 [facility] Work Phone: Comment on above: Once per month for 99 Occurrences starti ng 11/09/2022 until 11/09/2023 End: 11-14-2024 PT panel - Platelet poor plasma by Coagulation assay PROTHROMBIN TIME Lab STAT Personal history of DVT (deep vein thrombosis) Once per month for 99 Occurrences starting 11/15/2023 until 11/14/2024 [facility] Comment on above: [facility] for [facility]15[facility]23 until 11/14/2024 Red blood cell count [facility] Red blood cell count [facility] Red cell distributio n width determination [facility] Red cell distributio n width determination [facility] Serum chloride measurement [facility] Sodium [Moles/volume ] in Serum or Plasma [facility] Sodium [Moles/volume ] in Serum or Plasma [facility] Sodium [Moles/volume ] in Serum or Plasma [facility] Sodium [Moles/volume ] in Serum or Plasma [facility] Sodium measurement [facility] Specific gravity of Urine [facility] End: 02-06-2025 SPECT Heart for infarct W Tc-99m PYP IV NM SPECT/CT CARDIAC AMYLOID Radiology Routine Nonrheumatic aortic valve stenosis 1 Occurrences starting 01/08/2024 until 02/06/2025 [facility] Comment on above: 1 Occurrences starting 01/08/2024 until 02/06/2025 End: 02-06-2025 SPIROMETRY BASELINE ONLY SPIROMETRY BASELINE ONLY PFT Routine Nonrheumatic aortic valve stenosis 1 Occurrences starting 01/08/2024 until 02/06/2025 [facility] Work Phone: Comment on above: 1 Occurrences starting 01/08/2024 until 02/06/2025 SPIROMETRY BASELINE ONLY SPIROME TRY BASELINE ONLY PFT Routine Nonrheumatic aortic valve stenosis 03/25/2024 9:28 AM EST [facility] Work Phone: Total protein measurement [facility] Urea nitrogen [Mass/volume] in Serum or Plasma [facility] Urea nitrogen [Mass/volume] in Serum or Plasma [facility] Urea nitrogen [Mass/volume] in Serum or Plasma [facility] Urea nitrogen [Mass/volume] in Serum or Plasma [facility] Urea nitrogen [Mass/volume] in Serum or Plasma [facility] Urinalysis, blood, qualitative [facility] Urine dipstick for glucose [facility] Urine dipstick for leukocyte esterase [facility] Urine dipstick for nitrite [facility] Urine dipstick for protein [facility] Urine examination [facility] Urine microscopy: epithelial cells [facility] Urine microscopy: epithelial cells [facility] Urine microscopy: re d cells [facility] Urine Microscopy: wh ite cells [facility] Urobilinogen [Presen ce] in Urine [facility] End: 07-09-2024 US Lower extremity vein US LEG VEIN DVT [facility] LAB Vascular Lab STAT Acute pain of right knee Pain and swelling of right lower leg 1 Occurrences starting 07/10/2023 until 07/09/2024 [facility] Work Phone: Comment on above: 1 Occurrences starting 07/10/2023 until 07/09/2024 White blood cell count [facility] End: 02-06-2025 XR Chest PA and Lateral XR CHEST 2V FRONTAL/LAT Radiology Routine Nonrheumatic aortic valve stenosis 1 Occurrences starting 01/08/2024 until 02/06/2025 [facility] Comment on above: 1 Occurrences starting 01/08/2024 until 02/06/2025 End: 05-15-2025 XR Chest PA and Lateral XR CHEST 2V FRONTAL/LAT Radiology Routine Nonrheumatic aortic valve stenosis Aortic valve disorder 1 Occurrences starting 04/15/2024 until 05/15/2025 [facility] Comment on above: 1 Occurrences starting 04/15/2024 until 05/15/2025 End: 08-16-2024 XR Knee - right 4 Views XR KNEE GENERAL 4V AP BOTH/PA BOTH/LAT/MERC RIGHT Radiology Routine Right knee pain, unspecified chronicity 1 Occurrences starting 07/18/2023 until 08/16/2024 [facility] Work Phone: Comment on above: 1 Occurrences starting 07/18/2023 until 08/16/2024 End: 08-16-2024 XR Lower extremity - bilateral AP W standing XR LEG FRONTAL HIP TO ANKLE MECHANICAL AXIS Radiology Routine Right knee pain, unspecified chronicity 1 Occurrences starting 07/18/2023 until 08/16/2024 [facility] Comment on above: 1 Occurrences starting 07/18/2023 until 08/16/2024 [facility] Immunizations Immunization Date Immunization Notes Care Provider Fa [facility] 11-22-2023 influenza, high dose seasonal, preservative-free Geno Hart MD Work Phone: [facility] 11-22-2023 influenza virus vacc ine, unspecified formulation Geno Hart MD Work Phone: [facility] 08-01-2023 respiratory syncytia l virus (RSV) vaccine, adjuvanted (AREXVY) Ilda Miller RN Work Phone: [facility] 08-01-2023 zoster vaccine recombinant Claudine Durán MD Work Phone: [facility] 01-04-2023 COVID-19 vaccine, ag e 12+ yr, season (PFIZER-BIONTECH) Jimbo Swanson APRN.MUSHROOM GROWTH MEDIA MIXER Work Phone: [facility] Work Phone: 10-27-2022 influenza (HD-IIV4) vaccine, age 65+ yr, high dose, quadrivalent, PF (FLUZONE HIGH-DOSE) Jimbo Swanson APRN.MUSHROOM [employer]OWTH MEDIA MIXER Work Phone: [facility] Work Phone: 10-27-2022 influenza virus vacc ine, unspecified formulation Anticoag Wstr Work Phone: [facility] 11-18-2021 influenza, high dose seasonal, preservative-free Ilda Miller RN Work Phone: [facility] 11-10-2021 COVID-19 booster vaccine, age 12+ yr, bivalent (PFIZER-BIONTECH) Jimbo Swanson APRN.MUSHROOM GROWTH MEDIA MIXER Work Phone: [facility] Work Phone: 11-10-2021 influenza, high-dose , quadrivalent vaccine (FLUZONE HIGH DOSE QUADRIVALENT) Jimbo Swanson APRN.MUSHROOM GROWTH MEDIA MIXER Work Phone: [facility] Work Phone: 07-11-2021 Covid (Pfizer) Dr[facility] Claudine Martinez [facility] Work Phone: [facility] 07-11-2021 COVID-19 vaccine, ag e 12+ yr (PFIZER-BIONTECH - ARIAS TOP) Anticoag Wstr Work Phone: [facility] 11-21-2020 COVID-19 original vaccine, age 12+ yr, monovalent (PFIZER-BIONTECH - PURPLE TOP) Claudine Durán MD Work Phone: [facility] 11-21-2020 influenza, high dose seasonal, preservative-free Ilda Miller RN Work Phone: [facility] 11-09-2020 COVID-19 vaccine, ag e 12+ yr (PFIZER-BIONTECH - PURPLE TOP) [facility] 11-09-2020 influenza, high-dose , quadrivalent vaccine (FLUZONE HIGH DOSE QUADRIVALENT) [facility] Work Phone: 05-13-2020 COVID-19 vaccine, ag e 12+ yr (PFIZER-BIONTECH - PURPLE TOP) [facility] Work Phone: 04-22-2020 COVID-19 vaccine, ag e 12+ yr (PFIZER-BIONTECH - PURPLE TOP) [facility] Work Phone: 11-06-2019 influenza, high-dose , quadrivalent vaccine (FLUZONE HIGH DOSE QUADRIVALENT) [facility] Work Phone: 11-06-2019 tetanus and diphther ia toxoids, adsorbed, preservative free, for adult use (2 Lf of tetanus toxoid and 2 Lf of diphtheria toxoid) Dr. Claudine Durán Work Phone: [facility] 11-06-2019 tetanus and diphther ia toxoids, adsorbed, preservative free, for adult use (5 Lf of tetanus toxoid and 2 Lf of diphtheria toxoid) [facility] Work Phone: 11-03-2019 influenza, high dose seasonal, preservative-free Ilda Miller RN Work Phone: [facility] 11-28-2018 zoster vaccine recombinant [facility] 11-25-2018 influenza, high dose seasonal, preservative-free Ilda Miller RN Work Phone: [facility] 10-26-2018 Influenza, high dose seasonal Dr. Claudine Durán MD Work Phone: [facility] 10-26-2018 influenza, high dose seasonal, preservative-free [facility] 07-23-2018 zoster vaccine recombinant [facility] 11-27-2017 Influenza, high dose seasonal Dr. Claudine Durán MD Work Phone: [facility] 11-27-2017 influenza, high dose seasonal, preservative-free [facility] 02-07-2017 influenza virus vacc ine, live, attenuated, for intranasal use Ilda Miller RN Work Phone: [facility] 02-07-2017 pneumococcal polysaccharide vaccine, 23 ravi Durán MD Work Phone: [facility] 01-31-2017 Influenza, high dose seasonal Dr. Claudine Durán MD Work Phone: [facility] 01-31-2017 influenza, high dose seasonal, preservative-free [facility] 12-13-2016 pneumococcal polysaccharide vaccine, 23 valrandall Durán MD Work Phone: [facility] 11-28-2016 pneumococcal polysaccharide vaccine, 23 ravi Durán MD Work Phone: [facility] 12-13-2015 influenza, high dose seasonal, preservative-free [facility] 11-10-2014 Influenza, high dose seasonal Dr. Claudine Durán MD Work Phone: [facility] 11-10-2014 influenza, high dose seasonal, preservative-free [facility] 03-30-2014 pneumococcal conjuga te vaccine, 13 valent [facility] 12-08-2013 influenza virus vacc ine, live, attenuated, for intranasal use Ilda Miller RN Work Phone: [facility] 12-08-2013 pneumococcal conjuga te vaccine, 7 valent Ilda Miller RN Work Phone: [facility] 12-08-2013 pneumococcal polysaccharide vaccine, 23 valent Claudine Durán MD Work Phone: [facility] 11-24-2013 influenza, injectabl e, quadrivalent, preservative free Dr. Claudine Durán Work Phone: [facility] 11-24-2013 influenza, seasonal, injectable [facility] 03-24-2013 pneumococcal polysaccharide vaccine, 23 valent [facility] 11-18-2012 influenza virus vacc ine, unspecified formulation [facility] Work Phone: 11-10-2011 influenza virus vacc ine, unspecified formulation [facility] 11-23-2010 influenza virus vacc ine, unspecified formulation [facility] 10-07-2009 tetanus toxoid, redu amarilis diphtheria toxoid, and acellular pertussis vaccine, adsorbed [facility] 10-29-2008 influenza virus vacc ine, unspecified formulation [facility] 01-10-2008 influenza virus vacc ine, whole virus Ilda Miller RN Work Phone: [facility] 01-10-2008 influenza, injectabl e, quadrivalent, preservative free Dr. Claudine Durán Work Phone: [facility] 07-09-2007 tuberculin skin test ; purified protein derivative solution, intradermal Jimbo Swanson SEAM SEWER.MUSHROOM [employer]OWTH MEDIA MIXER Work Phone: [facility] 06-24-2007 tuberculin skin test ; purified protein derivative solution, intradermal Jimbo Swanson SEAM SEWER.MUSHRO[employer]OWTH [employer] MIXER Work Phone: [facility] 09-22-1999 diphtheria and tetan us toxoids, adsorbed for pediatric use [facility] Work Phone: Payers Date Payer Category Payer Self-pay [id number] 2021 Medicare AETNA MEDICARE A ETNA MEDICARE PPO [id number] 2021-Present [phone] [address] [place] [address] PPO [id number] 2021 Medicare AETNA MEDICARE A ETNA MEDICARE PPO [id number] 2021-Present [phone] [address] [place] [address] PPO [id number] 2021 Medicare (Managed Care) AETNA [place] DICARE [id number] 2021 Private Health Insurance [id number] 2011 Unknown [id number] 1945 Unknown [id number]. 668 Medicare [id number] Private Health Insurance Unknown [id number] .[id number]. 462 Unknown [id number] .1.026532.3.579.2. 462 Unknown [id number] .1.156933.3.579.2. 462 Unknown [id number] 2.16.840.1.217042.3.579.2. 462 Unknown [id number] 2.16.840.1.744642.3.579.2. 462 Unknown [id number] 2.16.840.1.957383.3.579.2. 462 Unknown [id number] 2.16.840.1.826159.3.579.2. 462 Unknown [id number] 2.16.840.1.750521.3.579.2. 462 Unknown [id number] 2.16.840.1.361067.3.579.2. 462 Unknown [id number] 2.16.840.1.909046.3.579.2. 462 Unknown [id number] 2.16.840.1.517110.3.579.2. 462 Unknown [id number] 2.16.840.1.505376.3.579.2. 462 Unknown [id number] 2.16.840.1.839304.3.579.2. 462 Unknown [id number] 2.16.840.1.049027.3.579.2. 462 Unknown [id number] 2.16.840.1.515833.3.579.2. 462 Unknown [id number] 2.16.840.1.173171.3.579.2. 462 Unknown [id number] 2.16.840.1.107247.3.579.2. 462 Unknown [id number] 2.16.840.1.737962.3.579.2. 462 Unknown [id number] 2.16.840.1.113192.3.579.2. 462 Unknown [id number] 2.16.840.1.342097.3.579.2. 462 Unknown [id number] 2.16.840.1.361620.3.579.2. 462 Unknown [id number] 2.16.840.1.151072.3.579.2. 462 Unknown [id number] 2.16.840.1.605302.3.579.2. 462 Unknown [id number] 2.16.840.1.979518.3.579.2. 462 Unknown [id number] 2.16.840.1.964050.3.579.2. 462 Unknown [id number] 2.16840.1.132582.3.579.2. 462 Unknown [id number] 2.16.840.1.640006.3.579.2. 462 Unknown [id number] 2.16.840.1.973768.3.579.2. 462 Unknown [id number] 2.16840.1.139034.3.579.2. 462 Unknown [id number] 2.16840.1.217911.3.579.2. 462 Unknown [id number] 2.840.1.215726.3.579.2. 462 Unknown [id number] 2.840.1.042250.3.579.2. 462 Unknown [id number] 2.840.1.073462.3.579.2. 462 Unknown [id number] 2.16840.1.685806.3.579.2. 462 Unknown [id number] 2.16840.1.824626.3.579.2. 462 Unknown [id number] 2.840.1.107739.3.579.2. 462 Unknown [id number] 2.16840.1.444903.3.579.2. 462 Unknown [id number] 2.16840.1.118481.3.579.2. 462 Unknown [id number] 2.16840.1.507274.3.579.2. 462 Social History Date Type Detail Facility Start: 08-28-2019 End: 10-11-2023 Tobacco smoking status [facility] Ex-smoker [facility] Start: 02-19-1979 End: 02-19-1989 History of tobacco use Current smoker [facility] Start: 02-19-1979 End: 02-19-1989 History of tobacco use Cigarette Smoker [facility] Start: 05-03-2021 End: 07-22-2024 Alcohol intake Current drinker of alcohol (finding) [facility] Start: 11-28-2019 End: 03-06-2022 History SDOH Alcohol Frequency 2 [facility] Start: 11-28-2019 End: 03-06-2022 History SDOH Alcohol Std Drinks 1 [facility] Start: 03-31-2019 End: 03-06-2022 History SDOH Social Connections Sikhism 3 [facility] Start: 03-31-2019 End: 03-06-2022 History SDOH Social Connections Living 4 [facility] Start: 07-28-2019 End: 03-06-2022 History SDOH Physical Activity DPW 5 [facility] Start: 03-31-2019 Education 18 [facility] Start: 08-28-2019 End: 11-10-2021 Tobacco Comment Late heavy smoker. [facility] Start: 1945 Sex Assigned At Female [facility] Start: 05-02-2021 End: 12-31-2021 Exposure to SARS-CoV-2 (event) Not sure [facility] Work Phone: Start: 12-11-2017 End: 04-05-2023 Tobacco smoking status MIIS Unknown if ever smoked [facility] Start: 08-28-2019 End: 06-22-2022 Cigarettes smoked current (pack per day) - Reported 1 [facility] Start: 08-28-2019 End: 10-11-2023 Tobacco use and exposure Smokeless tobacco non-user [facility] Start: 03-06-2022 End: 06-22-2022 Social connection and isolation panel [facility] Do you belong to any clubs or organizations such as jain groups, unions, fraternal or athletic groups, or school groups? Yes [facility] Are you now , , , , never or living with a partner? [facility] How often to you hav e a drink containing alcohol? Monthly or less [facility] How many standard dr inks containing alcohol do you have on a typical day? 1 or 2 [facility] How often do you hav e 6 or more drinks on 1 occasion? Never [facility] Start: 01-21-2012 How hard is it for you to pay for the very basics like food, housing, medical care, and heating Not hard at all [facility] Do you feel stress - tense, restless, nervous, or anxious, or unable to sleep at night because your mind is troubled all the time - these days [OSQ] Not at all [facility] (I/We) worried wheth er (my/our) food would run out before (I/we) got money to buy more. Never true [facility] In the past 12 month s, was there a time when you were not able to pay the mortgage or rent on time? No [facility] Start: 03-04-2019 Gender identity Identifies as female gender (finding) [facility] Start: 03-04-2019 Sexual orientation Heterosexual (finding) [facility] Do you feel stress - tense, restless, nervous, or anxious, or unable to sleep at night because your mind is troubled all the time - these days [OSQ] To some extent [facility] How hard is it for y ou to pay for the very basics like food, housing, medical care, and heating Not very hard [facility] Start: 2024 Sex Female (finding) [facility] Medical Equipment Procedure Code Equipment Code Equipment Origin al Text Equipment Identifier Dates Navitor With Radiopaque Markers, 25mm - [id number] Start: 05-02-2024 Goals Date Patient Goal [...] Assessment Result Facility 08-27-2024 Functional status Ambulates [facility] Work Phone: 08-23-2024 Functional status Up ad rupal [facility] Work Phone: 05-03-2024 Are you deaf, or do you have serious difficulty hearing No 05/03/2024 11:03 AM Doreen Kohler, PAULA No [facility] 05-03-2024 Are you blind, or do you have serious difficulty seeing, even when wearing glasses No 05/03/2024 11:03 AM Doreen Kohler, PAULA No [facility] 05-03-2024 Do you have serious difficulty walking or climbing stairs No 05/03/2024 11:03 AM Doreen Kohler, RN No [facility] 05-03-2024 Do you have difficul ty dressing or bathing No 05/03/2024 11:03 AM Doreen Kohler, RN No [facility] 05-03-2024 Because of a physica l, mental, or emotional condition, do you have difficulty doing errands alone such as visiting a physician's office or shopping No 05/03/2024 11:03 AM Doreen Kohler, RN No [facility] 03-24-2024 Are you deaf, or do you have serious difficulty hearing No 03/24/2024 3:46 PM Karl rBowne RN No [facility] 03-24-2024 Are you blind, or do you have serious difficulty seeing, even when wearing glasses No 03/24/2024 3:46 PM Karl Browne RN No [facility] 03-24-2024 Do you have serious difficulty walking or climbing stairs No 03/24/2024 3:46 PM Karl Browne RN No [facility] 03-24-2024 Do you have difficul ty dressing or bathing No 03/24/2024 3:46 PM Karl Browne RN No [facility] 03-24-2024 Because of a physica l, mental, or emotional condition, do you have difficulty doing errands alone such as visiting a physician's office or shopping No 03/24/2024 3:46 PM Karl Browne RN No [facility] 04-30-2023 Functional status Ambulates;Bedr est;Bathro om [facility] Work Phone: 04-16-2023 Functional status Ambulates [facility] Work Phone: 04-05-2023 Functional status Ambulates;Bath [facility] [facility] Work Phone: 03-27-2023 Functional status Up ad rupal [facility] Work Phone: Mental Status Date Assessment Result Facility 08-27-2024 Cognitive function Voice/Name [facility] Work Phone: 08-23-2024 Cognitive function Voice/Name [facility] Work Phone: 05-03-2024 Because of a physica l, mental, or emotional condition, do you have serious difficulty concentrating, remembering, or making decisions No 05/03/2024 11:03 AM EDT Doreen Bazan, PAULA No [facility] 03-24-2024 Because of a physica l, mental, or emotional condition, do you have serious difficulty concentrating, remembering, or making decisions No 03/24/2024 3:46 PM EST Karl Muniz, PAULA No [facility] 04-30-2023 Cognitive function Voice/Name [facility] Work Phone: 04-24-2023 Cognitive function Appropriate [facility] Work Phone: 04-16-2023 Cognitive function Voice/Name;Touch/[facility] Work Phone: 04-05-2023 Cognitive function Voice/Name [facility] Work Phone: 03-31-2023 Cognitive function Level Of Cons ciousness Awake;Alert;Appropriate;Fol lows [facility] Work Phone: 03-27-2023 Cognitive function Appropriate;Cooperativ e [facility] Work Phone: 03-26-2023 Cognitive function Voice/Name [facility] Work Phone: Clinical Notes 03-08-2018 to 11-11-2024 Telephone Encounter - Muna Porter RN - 10/24/2024 4:02 PM EDTTelephone Encounter - Muna Porter RN - 10/24/2024 4:02 PM EDTPatient Claudine Sparrow MD - 10/24/2024 1:31 PM EDT Note Date & Type Note Facility 11-11-2024 Note [facility] Medical Records Department [address] [place] [address] Discharge Summary 11/11/24 1433 MR#: [id number] Acct: [id number] Name: HAYDEE BUSTAMANTE Rep #: [id number] : 1945 79 From: Bob Solano DO PCP: Dr. Claudine Durán MD Status:ADM ADAIR Location: [place] [address] Providers Date of Admission: 11/08/24 Primary Care Physician: Dr. Claudine Durán MD Consultations 11/08/24 19:41 Consult: Orthopedics Routine Consulting Provider: Padilla Peña Reason for Consult: Right patella fracture EMERGENT Consult: No MD Notified: Yes Date Notified: 11/08/24 Time Notified: 18:47 Method of Notification: Verbal Reason For Visit: RIGHT PATELLA FRACTURE Diagnosis Discharge Diagnosis (1) Patellar fracture: Status: Acute Code(s): S82.009A - Unspecified fracture of unspecified patella, initial encounter for closed fracture Qualifiers: Encounter type: initial encounter Fracture type: closed Fracture morphology: transverse F racture alignment: nondisplaced Laterality: right Qualified Code(s): S82.034A - Nondisplaced transverse fracture of right patella, initial encounter for closed fracture Plan Right patella fracture * imaging studies obtained on admission demonstrated acute transverse patella fracture,. * Seen by Dr. Peña of orthopaedics: knee immobilization for 6 weeks with crutches/walker. Ice PRN. follow up in 1-2 weeks * Pain control Chronic medical conditions: * Valvular heart disease??? With known history of severe aortic stenosis status post TAVR * COPD??? Currently not in exacerbation aerosol treatments as needed * Chronic congestive heart failure with preserved ejection fraction??? Patient remains euvolemic * History of DVT??? Patient is on systemic anticoagulation with warfarin continued with daily monitoring of INR. Has previous history of IVC filter placement. Will bridge with enoxaparin until INR therapuetic. * Hypertension??? Blood pressure controlled, home medications continued with dose adjustment as needed * Rheumatoid arthritis??? 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 Secondary to chronic disorder monitoring H H and transfuse if patient becomes symptomatic or hemoglobin falls below 7 * Osteoporosis??? With fracture of the right wrist in August 2024. Brace has since been removed. Follow up with orthopaedics as outpt. DVT prophylaxis: not indicated as already on warfarin. [facility]: [facility]. Medications at Discharge Home Medications multivitamin (Daily Multi-Vitamin tablet) 1 tab PO DAILY supplement 03/19/23 vitamins A,C,J-ixxu-mxmerb 2,148 mcg-113 mg-45 mg-17.4 mg tablet (PreserVision AREDS) 2 tab PO DAILY eye health 03/19/23 potassium chloride 20 mEq tablet,extended release(part/cryst) 20 meq PO BIDCM #0 tabs 04/27/23 fluticasone propionate 50 mcg/actuation nasal spray,suspension 1 spray intranasal DAILY 08/13/23 tiotropium bromide 2.5 mcg/actuation mist for [...] mcg-salmeterol 50 mcg/dose blistr powdr for inhalation (Rogerela Inhub) 1 inh inhalation BID 06/13/24 folic acid 0.8 mg capsule 0.8 mg PO QDAY 06/13/24 methotrexate sodium 2.5 mg tablet 10 mg PO QWEEK 06/13/24 sulfasalazine 500 mg tablet,delayed release 1 g PO BID 06/13/24 acetaminophen 500 mg tablet 1,000 mg PO TID Pain Score 1-10 06/20/24 ferrous sulfate 325 mg (65 mg iron) tablet 325 mg PO QDAY 06/20/24 metoprolol succinate 25 mg tablet,extended release 24 hr 25 mg PO QDAY #30 tabs 07/18/24 folic acid 1 mg tablet 1 mg PO DAILY 08/23/24 gabapentin 300 mg capsule 300 mg PO BID #0 caps 08/27/24 warfarin 6 mg tablet (Jantoven) 6 mg PO DAILY 11/08/24 enoxaparin 60 mg/0.6 mL subcutaneous syringe 60 mg (0.6 mL) subcut Q12@0600,1800 #0 mL 11/10/24 Hospital Course Operations None Procedures None Weight / BMI Weight Weight: 59.1 kg Body Mass Index (BMI) 23.1 ABG / Lab / Microbiology Data 11/11/24 05:38 11/11/24 05:38 Laboratory: Laboratory Results - last 24 hr 11/11/24 05:38: WBC 7.4, RBC 3.23 L, Hgb 10.9 L, Hct 32.2 L, MCV 99.7 H, MCH 33.7 H, MCHC 33.9, RDW Std Deviation 57.2 H, RDW Coeff of Catarino 15.7 H, Plt Count 163, MPV 10.9, Immature Gran % (Auto) 0.400, Neut % (Auto) 72.1 H, Lymph % (Auto) 14.4 L, Desoto % (Auto) 11.7 H, Eos % (Auto) 1.1, Baso % (Auto) 0.3, Absolute Neuts (auto) 5.3, Absolute Lymphs (auto) 1.07, (more content not included)... [facility] 10-24-2024 Telephone encounter Note Called and left a detailed voicemail notifying Misbah PT with [facility] of providers message. Clinic phone number was left in case he had any questions. Muna Porter RN [facility] 10-24-2024 Miscellaneous Notes Called and left a detailed voicemail notifying Misbah PT with [facility] of providers message. Clinic phone number was [...] Muna Porter, RN documented in this encounter [facility] 10-24-2024 Telephone encounter Note OK, please let him know [facility] 10-24-2024 Instructions Claudine Durán MD - 10/24/2024 2:20 PM EDT - Refill your warfarin (Coumadin) 6 mg daily. A 90-day supply of 5 mg and 1 mg tablets with refills has been sent to [facility]. - Refill your methotrexate: take 4 tablets every Sunday. A 60-tablet supply with refills has been sent to [facility]. - Schedule a Reclast (zoledronic acid) infusion [...] and functional use. documented in this encounter [facility] 10-24-2024 History of Presen t illness Narrative [...] the floor. She was subsequently hospitalized at [facility]. She sustained a skin tear on her [...] of a discectomy and laminectomy at the [facility]. She also has a history of gastrointestinal [...] participating in social activities, such as attending jain and theater performances. PAST MEDICAL HISTORY Diagnosis Date Anemia Bone marrow involvement with histoplasmosis Aortic stenosis COPD (chronic obstructive pulmonary disease) (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 Diverticulosis of colon (without mention of hemorrhage) Diverticulosis DVT, recurrent, lower extremity, acute ([facility]) 12/10/2014 GERD (gastroesophageal reflux disease) Hiatal hernia 02/25/2018 Hypertension Lung nodule Macular degeneration Mitral stenosis Rheumatoid arthritis involving multiple sites with positive rheumatoid factor ([facility]) 03/07/2015 Dr. Hurley ([facility]) Tricuspid regurgitation Current Outpatient Medications Medication [...] FOLIC ACID ORAL Take by mouth. vit A,C,T-Xjsj-Eqvnqb (OCUVITE PRESERVISION) 2,148 mcg-113 mg-45 mg-17.4mg tab [...] Height as of 07/22/24: 157.5 cm (5' 2"). Weight as of this encounter: 58.3 kg [...] further rehabilitation. Claudine Durán MD Recording using Paxera software for draft documentation of the visit was discussed with the patient/authorized help desk representative; all questions welcomed and answered. Patient/authorized help desk representative agreed to proceed documented in this encounter [facility] 10-23-2024 Telephone encounter Note Misbah PT with [facility] called in asking for verbal orders for OT. He would like them to evaluate the Pt for upper extremity strength and ADLs. His VM is confidential and you can leave a VM. Muna Porter RN [facility] 10-19-2024 Telephone encounter Note Received page from Home Care Nurse for this patient. Pt was reportedly [facility] ago and there was [...] and she can speak with [facility] nurse electronic technologist to relay same recommendation. Dr. Russ Velasquez DO [facility] Work Phone: 10-19-2024 Miscellaneous Notes Received page from Home Care Nurse for this patient. Pt was reportedly discharged from [facility] a [facility] days ago and there was [...] and she can speak with [facility] nurse electronic technologist to relay same recommendation. Dr. Russ Velasquez DO documented in this encounter [facility] 10-19-2024 Radiology Diagnostic study note [facility] 10-19-2024 Radiology Diagnostic study note [facility] 10-16-2024 Telephone encounter Note Meseret from [employer] returned call and went over notes below from Jimbo Swanson PROCESS TRAINER with understanding. [facility] 10-16-2024 Miscellaneous Notes Meseret from [employer] [facility] returned call and went over notes below from Jimbo Swanson PROCESS TRAINER with understanding. Yes, please let home health care know Meseret from [facility] calling patient is discharging from SNF today to home. Received orders for [facility], PT/OT, patient has fracture left radius, had shingles. Asking if PCP would follow patient and sign orders? Can leave message secure voicemail. Please advise documented in this encounter [facility] 10-16-2024 Telephone encounter Note Yes, please let home health care know [facility] 10-16-2024 Telephone encounter Note Meseret from [facility] calling patient is discharging from SNF today to home. Received orders for [facility], PT/OT, patient has fracture left radius, had shingles. Asking if PCP would follow patient and sign orders? Can leave message secure voicemail. Please advise [facility] 08-27-2024 Discharge summary Note Date/Time August 27, 2024 12:09pm [facility] Medical Records Department [address] [place] [address] Transfer to [facility] MR#: [id number] Acct: [id number] Name: HAYDEE BUSTAMANTE Rep #:[id number] : 1945 79 From: Jasmyn Chan DO PCP: Dr. Claudine Durán MD Status:[facility] [place] Certification of patient admission REQUIRED AT TIME OF ADMISSION. I CERTIFY THAT POST-HOSPITAL ECF SERVICES ARE REQUIRED TO BE GIVEN ON AN IN-PATIENT BASIS BECAUSE OF THE ABOVE NAMED PATIENT'S NEED FOR HALFWAY CARE ON A CONTINUING BASIS FOR THE CONDITION(S) FOR WHICH HE/SHE WAS RECEIVING IN-PATIENT HOSPITAL SERVICES PRIOR TO HIS/HER TRANSFER TO THE [facility]. 08/27/24 1209<Electronically signed by Jasmny Chan DO> Diet Diet Order/Speech Therapy: INPATIENT [...] mg PO DAILY Rx Instructions: 5 mg tues and thurs., 6 mg every other day warfarin 5 mg tablet See Rx Instructions .ROUTE .COMPLEX Rx Instructions: 6mg orally Sun/Sun/Sun/Sun/sun, 5 mg orally / metoprolol succinate 25 mg tablet extended release 24 hr 25 mg PO QDAY Qty: 30 11RF Discontinued omega 8-acy-oda-fish oil [Fish Oil] 1,200 (144-216) mg capsule 1 cap PO DAILY Patient Comments: ON HOLD FOR COLONOSCOPY Referrals / Follow Up: Claudine Durán MD [Primary Care Provider] - Burak Amanda MD [Med Staff - Active Staff] - See Referral Note (in one week-call to schedule appointment) Disposition Disposition (needs filled in before D/C Order can be placed): [facility] Facility 08/27/24 1209 <Electronically signed by Jasymn Chan DO> Cosigner Signature (if applicable): CC: Dr. Claudine Durán MD; Dr. Erasmo House MD; Dr. Burak Amanda MD ~ [facility] Work Phone: 1(899) 219-945307-09-2025 Hospital Discharge instructionsAdditional Instructions PT/INR daily times 3 days starting 08/28/24, maintain INR 2-3 Date of Discharge: 08/27/24[facility] Work Phone: 1(398) 267-137507-09-2025 Discharge summary [facility] Medical Records Department [address] [place] [address] Transfer to [facility] MR#: [id number] Acct: [id number] Name: HAYDEE BUSTAMANTE Rep #:[id number] : 1945 79 From: Jasmyn Chan DO PCP: Dr. Claudine Durán MD Status:[place] Certification of patient admission REQUIRED AT TIME OF ADMISSION. I CERTIFY THAT POST-HOSPITAL F SERVICES ARE REQUIRED TO BE GIVEN ON AN IN-PATIENT BASIS BECAUSE OF THE ABOVE NAMED PATIENT'S NEED FOR HALFWAY CARE ON A CONTINUING BASIS FOR THE CONDITION(S) FOR WHICH HE/SHE WAS RECEIVING IN-PATIENT HOSPITAL SERVICES PRIOR TO HIS/HER TRANSFER TO THE [facility]. 08/27/24 1209 Diet Diet Order/Speech Therapy: [...] PO QDAY Qty: 30 11RF Discontinued omega 6-evb-vll-fish oil [Fish Oil] 1,200 (144-216) mg capsule 1 cap PO DAILY Patient Comments: ON HOLD FOR COLONOSCOPY Referrals / Follow Up: Claudine Durán MD [Primary Care Provider] - Burak Amanda MD [Med Staff - Active Staff] - See Referral Note (in one week- call to schedule appointment) Disposition Disposition (needs filled in before D/C Order can be placed): [facility] 08/27/24 1209 Cosigner Signature (if applicable): CC: Dr. Claudine Durán MD; Dr. Erasmo House MD; Dr. Burak Amanda MD ~ [facility]07-09-2025 [facility] Medical Records Department [address] [place] [address] Discharge Summary 08/27/24 1209 MR#: [id number] Acct: [id number] Name: HAYDEE BUSTAMANTE Rep #: [id number] : 1945 79 From: Jasmyn Chan DO PCP: Dr. Claudine Durán MD Status:DIS ADAIR [id number] Providers Date of Admission: 08/23/24 Date of [...] 1 tab PO DAILY supplement 03/19/23 vitamins A,C,F-qaqg-ktemvz 2,148 mcg-113 mg-45 mg-17.4 mg tablet (PreserVision [...] was seen in the emergency room at [facility] for evaluation of injuries sustained when she [...] to get out of them or an assistant hvac mechanic. Patient finally used the telephone after she scooted herself around on the floor and called the squad to bring her in the hospital. Labs obtain urgency room included a CBC which was remarkable for hemoglobin of 11.3, INR was 1.2, chemistry profile was abnormal for BUN of 22. W (more content not included)...[facility] 08-26-2024 Progress note Author Jasmyn Chan [facility] Note Date/Time August 26, 2024 4:55p m [facility] Medical Records Department [address] [place] [address] Progress Note - Hospitalist 08/26/24 2126 MR#: [id number] Acct: [id number] Name: HAYDEE BUSTAMANTE DIONTE Rep #:[id number] : 1945 79 From: Jasmyn Chan DO PCP: Dr. Claudine Durán MD Status:AD M ADAIR Location: MS3 [id number] Reason for Visit Reason for Visit: Diagnoses Other malaise (08/23/24) Unspecified injury of head, initial encounter (08/23/24) Unspecified fracture of the lower end of left radius, initial encounter for closed fracture (08/23/24) Subjective Subjective Patient was seen and examined today, I removed her from telemetry-she did not appear to be tachycardic. We are currently awaiting approval for her to go to [facility] for short-term skilled services. Objective Data [...] 35 minutes Charges/Coding Visit Charges Inpatient E&M: 07334 Subs Hosp L2 08/26/24 1655 <Electronically signed by Jasmyn Chan DO> Cosigner Signature (if applicable): CC: ~ Signed [facility] Work Phone: 1(188) 970-279907-08-2025 Progress note [facility] Medical Records Department [address] [place] [address] Progress Note - Hospitalist 08/26/24 1654 MR#: [id number] Acct: [id number] Name: HAYDEE BUSTAMANTE Rep #:[id number] : 1945 79 From: Jasmyn Chan DO PCP: Dr. Claudine Durán MD Status:AD M [facility] Location: [place] [address] Reason for Visit Reason for Visit: Diagnoses Other malaise (08/23/24) Unspecified injury of head, initial encounter (08/23/24) Unspecified fracture of the lower end of left radius, initial encounter for closed fracture (08/23/24) Subjective Subjective Patient was seen and examined today, I removed her from telemetry-she did not appear to be tachycardic. We are currently awaiting approval for her to go to [facility] for short-term skilled services. Objective Data [...] / 240 240 / 240 Output Total 2050 / 2050 1350 / 1350 1000 / 1000 Balance [...] 35 minutes Charges/Coding Visit Charges Inpatient E&M: 61478 Subs Hosp L2 08/26/24 1269 Cosigner Signature (if applicable): CC: ~ Signed [facility]07-07-2025 Progress note Author Jasmyn Chan [facility] Note Date/Time August 25, 2024 6:26p m [facility] Medical Records Department [address] [place] [address] Progress Note - Hospitalist 08/25/24 1819 MR#: [id number] Acct: [id number] Name: HAYDEE BUSTAMANTE Rep #:[id number] : 1945 79 From: Jasmyn Chan DO PCP: Dr. Claudine Durán MD Status:AD M ADAIR Location: [place] [address] Reason for Visit Reason for Visit: Diagnoses [...] 35 minutes Charges/Coding Visit Charges Inpatient E&M: 96588 Subs Hosp L2 08/25/24 1826 <Electronically signed by Jasmyn Chan DO> Cosigner Signature (if applicable): CC: ~ Signed [facility] Work Phone: 1(191) 764-838807-07-2025 Progress note [facility] Medical Records Department [address] [place] [address] Progress Note - Hospitalist 08/25/24 181 MR#: [id number] Acct: [id number] Name: HAYDEE BUSTAMANTE Rep #:[id number] : 1945 79 From: Jasmyn Chan DO PCP: Dr. Claudine Durán MD Status:AD M ADAIR Location: [place]3 [id number] Reason for Visit Reason for Visit: Diagnoses [...] 35 minutes Charges/Coding Visit Charges Inpatient E&M: 31329 Subs Hosp L2 08/25/24 8696 Cosigner Signature (if applicable): CC: ~ Signed [facility]07-06-2025 Progress note Author Erasmo House [facility] Note Date/Time August 24, 2024 1:25p m [facility] Medical Records Department [address] [place] [address] Progress Note - Hospitalist 08/24/24 0849 MR#: [id number] Acct: [id number] Name: HAYDEE BUSTAMANTE Rep #:[id number] : 1945 79 From: Erasmo Castañeda PCP: Dr. Claudine Durán MD Status:AD M ADAIR Location: [place] [address] Reason for Visit Reason for Visit: Diagnoses [...] (Auto) 69.1, Lymph % (Auto) 15.8 L, Desoto % (Auto) 12.6 H, Eos % (Auto) [...] fracture: [facility] of[facility]-ray left wrist [...] the wrist. Follow-up in 2 weeks in [place] [facility]. 2. Closed head injury without concussion [...] shock if needed Total time spent in wjan-fa-xera encounter in discussion of advanced directive 17 minutes. Laboratory Results 08/23/24 07:45: WBC 7.9, RBC 3.52 L, Hgb 11.3 L, Hct 33.9 L, MCV 96.3, MCH 32.1 H, MCHC 33.3, RDW Std Deviation 58.6 H, RDW Coeff of Catarino 17.0 H, Plt Count 182, MPV 10.9, Immature Gran % (Auto) 0.500, Neut % (Auto) 82.3 H, Lymph % (Auto) 8.1L, Desoto % (Auto) 8.6, Eos % (Auto) 0.1, [...] (Auto) 69.1, Lymph % (Auto) 15.8 L, Desoto % (Auto) 12.6 H, Eos % (Auto) [...] distal radius with intra-articular extension. Reading Location: [facility] Brain CT 08/23/24 08:06 IMPRESSION: 1. Generalized brain atrophy. 2. Small vessel ischemic/degenerative changes. 3. No acute intracranial hemorrhage, midline shift or mass effect. If symptoms persist, further evaluation with MRI is recommended. Reading Location: [facility] Charges/Coding Visit Charges Inpatient E&M: 21873 Subs Hosp L2 08/24/24 1325 <Electronically signed by Erasmo House MD> Cosigner Signature (if applicable): CC: ~ Signed [facility] Work Phone: 1(459) 133-133107-06-2025 Progress note [facility] Medical Records Department [address] [place] [address] Progress Note - Hospitalist 08/24/24 0849 MR#: [id number] Acct: [id number] Name: HAYDEE BUSTAMANTE Rep #:[id number] : 1945 79 From: Erasmo Castañeda PCP: Dr. Claudine Durán MD Status:AD M ADAIR Location: [place]3 [id number] Reason for Visit Reason for Visit: Diagnoses [...] (Auto) 69.1, Lymph % (Auto) 15.8 L, Desoto % (Auto) 12.6 H, Eos % (Auto) [...] radius/Colles' fracture: Patient is being admitted on MedSurg floor. 3 views ofx-ray left wrist x-ray [...] the wrist. Follow-up in 2 weeks in [place]. 2. Closed head injury without concussion [...] shock if needed Total time spent in woaw-xw-dclz encounter in discussion of advanced directive 17 minutes. Laboratory Results 08/23/24 07:45: WBC 7.9, RBC 3.52 L, Hgb 11.3 L, Hct 33.9 L, MCV 96.3, MCH 32.1 H, MCHC 33.3, RDW Std Deviation 58.6 H, RDW Coeff of Catarino 17.0 H, Plt Count 182, MPV 10.9, Immature Gran % (Auto) 0.500,Neut % (Auto) 82.3 H, Lymph % (Auto) 8.1L, Desoto % (Auto) 8.6, Eos % (Auto) 0.1, Baso % (Auto) 0.4, Absolute Neuts (auto)6.5, Absolute Lymphs (auto) 0.64 L, Nucleated RBC % 0, PT 15.5 H, INR 1.2, Sodium 140, Potassium 3.9, Chloride 104, Carbon Dioxide 22.1, Anion Gap 14, BUN 22 H, Creatinine 0.63 L, Estim Creat Clear Calc 48.72 L, Est GFR (MDRD) Non-Af 91, BUN/Creatinine Ratio 34.8 H, Ixxtvsp817 H, Calcium 9.2, Total Creatine Kinase 128 [...] (Auto) 69.1, Lymph % (Auto) 15.8 L, Desoto % (Auto) 12.6 H, Eos % (Auto) 1.5, Baso % (Auto) 0.6, Absolute Neuts (auto) 3.7, Absolute Lymphs (auto) 0.85, Nucleated RBC % 0, PT 16.3 H, INR 1.3, Lodgca111, Potassium 3.9, Chloride 105, Carbon Dioxide 21.9, Anion Gap 13, BUN 15, Creatinine 0.65 L, Estim Creat Clear Calc 48.72 L, Est GFR (MDRD) Non-Af 91, BUN/Creatinine Ratio 22.5 H, Glucose 90, Calcium 9.0 Clinical Impression(s) from Imaging Studies Wrist X-Ray 08/23/24 07:31 IMPRESSION: Comminuted impacted fracture of the distal radius with intra-articular extension. Reading Location: [facility] Brain CT 08/23/24 08:06 IMPRESSION: 1. Generalized brain atrophy. 2. Small vessel ischemic/degenerative changes. 3. No acute intracranial hemorrhage, midline shift or mass effect. If symptoms persist, further evaluation with MRI is recommended. Reading Location: [facility] Charges/Coding Visit Charges Inpatient E&M: 41148 Subs Hosp L2 08/24/24 1325 Cosigner Signature (if applicable): CC: ~ Signed [facility]07-05-2025 Consult note Author Burak Amnada [facility] Note Date/Time August 23, 2024 2:01p m [facility] Medical Records Department [address] [place] [address] Consultation - Orthopedics 08/23/24 1354 MR#: [id number] Acct: [id number] Name: HAYDEE BUSTAMANTE Rep #:[id number] : 1945 79 From: Burak Castañeda PCP: Dr. Claudine Durán MD Status:AD M [facility] Location: [place]3 [id number] HPI Consult Data Date of Consult: 08/23/24 [...] she was admittedfor placement and likely rehabilitation. [facility] Medical History Hypertension GERD (gastroesophageal reflux disease) [...] suppl ement 03/19/23 10/01/23 History tablet) vitamins A,C,V-isfx-nztqxo 2,148 2 tab PO BID eye heal [...] Rx (Voltaren Arthritis Pain) #100 grams omega 9-ecu-pxs-fish oil 1,200 mg 1 cap PO DAILY [...] (Auto) 82.3 H, Lymph % (Auto) 8.1L, Desoto % (Auto) 8.6, Eos % (Auto) 0.1, [...] distal radius with intra-articular extension. 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 Brain CT 08/23/24 08:06 IMPRESSION: 1. Generalized brain atrophy. 2. Small vessel ischemic/degenerative changes. 3. No acute intracranial hemorrhage, midline shift or mass effect. If symptoms persist, further evaluation with MRI is recommended. Reading Location: [facility] Assessment & Plan Assessment/Plan (1) Closed fracture [...] and direct care in that manner. [facility] Office: 08/23/24 1405 <Electronically signed by Burak Amanda MD> Cosigner Signature (if applicable): CC: Dr. Claudine Durán MD~ Signed [facility] Work Phone: 1(944) 574-588207-05-2025 Consult note [facility] Medical Records Department [address] [place] [address] Consultation - Orthopedics 08/23/24 1354 MR#: [id number] Acct: [id number] Name: HAYDEE BUSTAMANTE Rep #:[id number] : 1945 79 From: Burak Castañeda PCP: Dr. Claudine Durán MD Status:LUKE Coyne [facility] Location: [facility] GK154-3 HPI Consult Data Date of Consult: 08/23/24 [...] was admittedfor placement and likely re habilitation. [facility] Medical History Hypertension GERD (gastroesophageal reflux disease) [...] suppl ement 03/19/23 10/01/23 History tablet) vitamins A,C,T-glha-zkihjr 2,148 2 tab PO BID eye heal [...] Rx (Voltaren Arthritis Pain) #100 grams omega 0-jyw-jtn-fish oil 1,200 mg 1 cap PO DAILY [...] (Auto) 82.3 H, Lymph % (Auto) 8.1L, Desoto % (Auto) 8.6, Eos % (Auto) 0.1, [...] distal radius with intra-articular extension. Reading Location: [facility] Independent review of the films shows comminuted distal radius fracture with impaction and slight loss of radial height and inclination however, patient already has Luno?radial jnpb-pf-pufm osteoarthritis with subchondral sclerosis additionally there is scapholunate widening appreciated. Brain CT 08/23/24 08:06 IMPRESSION: 1. Generalized brain atrophy. 2. Small vessel ischemic/degenerative changes. 3. No acute intracranial hemorrhage, midline shift or mass effect. If symptoms persist, further evaluation with MRI is recommended. Reading Location: [facility] Assessment & Plan Assessment/Plan (1) Closed fracture [...] x-rays and direct carein that manner. [facility] Office: 08/23/24 1409 Cosigner Signature (if applicable): CC: Dr. Claduine Durán MD~ Signed [facility]07-05-2025 History and physical note Author Erasmo House [facility] Note Date/Time August 23, 2024 11:12 am [facility] Medical Records Department [address] [place] [address] H&P Exam - Hospitalist 08/23/24 1023 MR#: [id number] Acct: [id number] Name: HAYDEE BUSTAMANTE Rep #:[id number] : 1945 79 From: Erasmo Castañeda PCP: Dr. Claudine Durán MD Status:LUKE BORRERO [place] [facility] TP294-5 HPI - General General Date of Admission: [...] x-ray done in the ED were reviewed. [facility] Medical History Hypertension GERD (gastroesophageal reflux disease) [...] suppl ement 03/19/23 10/01/23 History tablet) vitamins A,C,Z-qkyq-yujfpn 2,148 2 tab PO BID eye heal [...] Rx (Voltaren Arthritis Pain) #100 grams omega 8-wmi-xgy-fish oil 1,200 mg 1 cap PO DAILY [...] (Auto) 82.3 H, Lymph % (Auto) 8.1L, Desoto % (Auto) 8.6, Eos % (Auto) 0.1, [...] distal radius with intra-articular extension. Reading Location: [facility] Brain CT 08/23/24 08:06 IMPRESSION: 1. Generalized brain atrophy. 2. Small vessel ischemic/degenerative changes. 3. No acute intracranial hemorrhage, midline shift or mass effect. If symptoms persist, further evaluation with MRI is recommended. Reading Location: [facility] Assessment & Plan Assessment/Plan (1) Closed fracture [...] as she lives alone. Orthopedic surgeon Dr. Peña consulted by ED physician. Pain control PT [...] shock if needed Total time spent in szwa-kv-jwnr encounter in discussion of advanced directive 17 minutes. Laboratory Results 08/23/24 07:45: WBC 7.9, RBC 3.52 L, Hgb 11.3 L, Hct 33.9 L, MCV 96.3, MCH 32.1 H, MCHC 33.3, RDW Std Deviation 58.6 H, RDW Coeff of Catarino 17.0 H, Plt Count 182, MPV 10.9, Immature Gran % (Auto) 0.500, Neut % (Auto) 82.3 H, Lymph % (Auto) 8.1L, Desoto % (Auto) 8.6, Eos % (Auto) 0.1, [...] distal radius with intra-articular extension. Reading Location: [facility] Brain CT 08/23/24 08:06 IMPRESSION: 1. Generalized brain atrophy. 2. Small vessel ischemic/degenerative changes. 3. No acute intracranial hemorrhage, midline shift or mass effect. If symptoms persist, further evaluation with MRI is recommended. Reading Location: [facility] Charges/Coding Visit Charges Inpatient E&M: 68281 Init Hosp L3 Procedures Hospitalists Procedures: 59764 Advncd Care Plan 30 Min 08/23/24 1112 <Electronically signed by Erasmo House MD> Cosigner Signature (if applicable): CC: Dr. Claudine Durán MD; Dr. Erasmo House MD~ Signed [facility] Work Phone: [phone]) 808-360507-05-2025 Discharge summary Author Rontasha Mariscal [facility] Note Date/Time August 23, 2024 10:29 am [facility] Medical Records Department [address] [place] [address] Emergency Department Summary 08/23/24 MR#: [id number] Acct: [id number] Name: HAYDEE BUSTAMANTE Rep #:[id number] : 1945 79 From: Ron Mariscal MD [...] at any point in time or syncope. Duxxr-hpra-eftfwpvl. Lives by herself. 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 She states this morning she laid there [...] to if her wrist was not injured [facility] Medical History Hypertension GERD (gastroesophageal [...] suppl ement 03/19/23 10/01/23 History tablet) vitamins A,C,X-wqjr-fyqlyy 2,148 2 tab PO BID eye heal [...] tabs Instructions: ON HOLD FOR COLONOSCOPY omega 6-gig-zvm-fish oil 1,200 mg 1 cap PO DAILY [...] motor deficits and no sensory deficits noted Titus Coma Scale: document GCS findings Spontaneous Obeys [...] 82.3 H Lymph % (Auto) 8.1 L Desoto % (Auto) 8.6 Eos % (Auto) 0.1 [...] distal radius with intra-articular extension. Reading Location: [facility] Brain CT 08/23/24 08:06 IMPRESSION: 1. Generalized brain atrophy. 2. Small vessel ischemic/degenerative changes. 3. No acute intracranial hemorrhage, midline shift or mass effect. If symptoms persist, further evaluation with MRI is recommended. Reading Location: [facility] Management Discussion w/another healthcare provider: Hospitalist and Mechanical Assembly (eezkiel amanda) Procedures Upper Extremity Splints Upper Extremity [...] functional status Disposition Disposition: Acute Care Hospital [facility] What to do if you have Problems For any increased pain, shortness of breath, bleeding, nausea or vomiting, chestpain, or any unexpected problems, contact your Primary Care Provider. Call [facility] ([phone]) or report to the closest Emergency Room. Call 911 if necessary. 08/23/24 1029 <Electronically signed by Ron Mariscal MD> Cosigner Signature (if applicable): CC: Dr. Claudine Durán MD ~ Signed [facility] Work Phone: 1(600) 377-175307-05-2025 Evaluation note* Diagnosis Onset Date Resolution Status Admit Date Closed fracture of distal en d of left radius inactive August 23, 2024 1 0:24am Closed head injury without concussion inactive August 23, 2024 1 0:24am Declining functional status inactive August 23, 2024 10:24am [facility] Work Phone: [phone]) 911-346907-05-2025 History and physical note [facility] Medical Records Department [address] [place] [address] H&P Exam - Hospitalist 08/23/24 1023 MR#: [id number] Acct: [id number] Name: HAYDEE BUSTAMANTE Rep #:[id number] : 1945 79 From: Erasmo Castañeda PCP: Dr. Claudine Durán MD Status:LUKE BORRERO Location: MA3 SM676-8 HPI - General General Date of Admission: [...] x-ray done in the ED were reviewed. [facility] Medical History Hypertension GERD (gastroesophageal reflux disease) [...] suppl ement 03/19/23 10/01/23 History tablet) vitamins A,C,C-ofmy-niexmq 2,148 2 tab PO BID eye heal [...] Rx (Voltaren Arthritis Pain) #100 grams omega 4-wgh-vzd-fish oil 1,200 mg 1 cap PO DAILY [...] (Auto) 82.3 H, Lymph % (Auto) 8.1L, Desoto % (Auto) 8.6, Eos % (Auto) 0.1, [...] distal radius with intra-articular extension. Reading Location: [facility] Brain CT 08/23/24 08:06 IMPRESSION: 1. Generalized brain atrophy. 2. Small vessel ischemic/degenerative changes. 3. No acute intracranial hemorrhage, midline shift or mass effect. If symptoms persist, further evaluation with MRI is recommended. Reading Location: [facility] Assessment & Plan Assessment/Plan (1) Closed fracture of distal end of left radius: (2) Closed head injury without concussion: PLAN: Plan This 72-year-old female was brought to ED when she fell down, mechanism unclear resulting into leftwrist fracture. 1. Acute debility of ADL due to closed fracture of distal end of left radius/Colles' fracture: Patient is being admitted on [facility] floor. 3 views ofx-ray left wrist x-ray reviewed shows comminuted impacted fracture of distal radius with intra-articular extension. ED patient is splinted in the left wristbut she has trouble in functioning and doing her house chores as she lives alone. Orthopedic surgeon Dr. Peña consulted by ED physician. Pain control PT [...] shock if needed Total time spent in aemm-pi-nqde encounter in discussion of advanced directive 17 minutes. Laboratory Results 08/23/24 07:45: WBC 7.9, RBC 3.52 L, Hgb 11.3 L, Hct 33.9 L, MCV 96.3, MCH 32.1 H, MCHC 33.3, RDW Std Deviation 58.6 H, RDW Coeff of Catarino 17.0 H, Plt Count 182, MPV 10.9, Immature Gran % (Auto) 0.500,Neut % (Auto) 82.3 H, Lymph % (Auto) 8.1L, Desoto % (Auto) 8.6, Eos % (Auto) 0.1, Baso % (Auto) 0.4, Absolute Neuts (auto)6.5, Absolute Lymphs (auto) 0.64 L, Nucleated RBC % 0, PT 15.5 H, INR 1.2, Sodium 140, Potassium 3.9, Chloride 104, Carbon Dioxide 22.1, Anion Gap 14, BUN 22 H, Creatinine 0.63 L, Estim Creat Clear Calc 48.72 L, Est GFR (MDRD) Non-Af 91, BUN/Creatinine Ratio 34.8 H, Ttjzrwm877 H, Calcium 9.2, Total Creatine Kinase 128 Clinical Impression(s) from Imaging Studies Wrist X-Ray 08/23/24 07:31 IMPRESSION: Comminuted impacted fracture of the distal radius with intra-articular extension. Reading Location: [facility] Brain CT 08/23/24 08:06 IMPRESSION: 1. Generalized brain atrophy. 2. Small vessel ischemic/degenerative changes. 3. No acute intracranial hemorrhage, midline shift or mass effect. If symptoms persist, further evaluation with MRI is recommended. Reading Location: [facility] Charges/Coding Visit Charges Inpatient E&M: 83347 Init Hosp L3 Procedures Hospitalists Procedures: 72945 Advncd Care Plan 30 Min 08/23/24 1112 Cosigner Signature (if applicable): CC: Dr. Cluadine Durán MD; Dr. Erasmo House MD~ Signed [facility]07-05-2025 Discharge summary [facility] Medical Records Department [address] [place] [address] Emergency Department Summary 08/23/24 MR#: [id number] Acct: [id number] Name: HAYDEE BUSTAMANTE Rep #:[id number] : 1945 79 From: Ron Mariscal MD [...] any point in time or sync ope. Fotcq-nfln-wwjvssxh. Lives by herself. 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 She states this morning she laid there [...] to if her wrist was not injured [facility] Medical History Hypertension GERD (gastroesophageal [...] suppl ement 03/19/23 10/01/23 History tablet) vitamins A,C,K-lkrl-wcdqzj 2,148 2 tab PO BID eye heal [...] tabs Instructions: ON HOLD FOR COLONOSCOPY omega 0-ybc-zlx-fish oil 1,200 mg 1 cap PO DAILY [...] 82.3 H Lymph % (Auto) 8.1 L Desoto % (Auto) 8.6 Eos % (Auto) 0.1 [...] distal radius with intra-articular extension. Reading Location: [facility] Brain CT 08/23/24 08:06 IMPRESSION: 1. Generalized brain atrophy. 2. Small vessel ischemic/degenerative changes. 3. No acute intracranial hemorrhage, midline shift or mass effect. If symptoms persist, further evaluation with MRI is recommended. Reading Location: [facility] Management Discussion w/another healthcare provider: Hospitalist and [employer] (ezekiel amanda) Procedures Upper Extremity Splints Upper Extremity Splint: Orthoglass (AP short arm, fabricated. Neurovascularly intact distally afterplacement) Splint Fabrication: Fabricated Location: Left Discharge Plan Dx/Rx/DC Orders Clinical Impression: Closed fracture of distal end of left radius, Closed head injury without concussion, Abrasion of face, Subtherapeutic international normalized ratio (INR), Fall from slip, trip, or stumble, Decliningfunctional status Disposition Disposition: Acute Care Hospital [facility] What to do if you have Problems For any increased pain, shortness of breath, bleeding, nausea or vomiting, chestpain, or any unexpected problems, contact your Primary Care Provider. Call [facility] ([phone]) or report tothe closest Emergency Room. Call 911 if necessary. 08/23/24 1029 Cosigner Signature (if applicable): CC: Dr. Claudine Durán MD ~ Signed [facility]07-05-[facility]25 Radiology Diagnostic study note [facility] Imaging Services [address] [place] [address] Wrist min 3 Views MR#: [id number] Acct: [id number] Name: HAYDEE BUSTAMANTE Rep #: [id number] : 1945 F 79 From: Bee Herrera MD PCP: Dr. Claudine Durán MD Status: RE G ER Study:Wrist min 3 Views Date of Exam: Exam# [id number] Ordering Dr: Iain Mariscal MD EXAM: XR [...] distal radius with intra-articular extension. Reading Location: [facility] CC: Dr. Ron Mariscal MD; Dr. Claudnie Durán MD ~ Manufacturing Worker: Signed [facility]07-05-2025 Radiology Diagnostic study note [facility] Imaging Services [address] [place] [address] Brain/Head without Contrast MR#: [id number] Acct: [id number] Name: HAYDEE BUSTAMANTE Rep #: [id number] : 1945 F 79 From: Bee Herrera MD PCP: Dr. Claudine Durán MD Status: RE G ER Study:Brain/Head without Contrast Date of Exa m: 08/23/24 Exam# [id number] Ordering Dr: Iain Mariscal MD EXAM: CT [...] evaluation with MRI is recommended. Reading Location: [facility] CC: Dr. Ron Mariscal MD; Dr. Claudine Durán MD ~ Manufacturing Worker: Signed [facility]07-03-2025 History of Present illness Narrative* Michael Braxton MD - 08/21/2024 12:46 PM EDT INR low with patient who missed a dose of coumadin. Continue current regimen. Recheck INR in 1 week. * Melissa Means, PAULA - 08/21/2024 12:24 PM EDT patient had inr completed at [facility] patients inr is 1.2 (patients inr range [...] FYI - results being sent to doc electronic technologist due to pcp and team members are [...] to the missed dose [facility] Telephone encounter Note * Telephone Encounter - [...] Cintron LPN August 18, 2024 2:11 PM [facility] Miscellaneous Notes* Telephone Encounter - Geni Cintron [...] 18, 2024 2:11 PM documented in this encounterOur [facility] History of Present illness Narrative* Melissa Means RN - 08/06/2024 4:32 PM EDT pcp agrees with information * Melissa Means RN - 08/06/2024 12:18 PM EDT patient had inr completed at [facility] patients inr is 1.4 (patients inr [...] not agree with recommendation documented in this encounterOur [facility]-2025 History of Present illness Narrative* Jane Rick [...] 29, 2024 10:11 AM documented in this encounterOur [facility]-20[facility] Instructions* Patient Instructions* Brissa Chester APRN.SANTY - 07/22/2024 2:32 PM EDT We discussed [...] You can follow up with a local scale assembly set up worker in [place] for your annual echocardiogram and routinecare. If you prefer, you can also follow up at another [facility] facility or return here foryour valve care. - as long as ECHO looks good today, you can follow-up with repeat ECHO in 1 years time - If you experience new or worsening symptoms, such as shortness of breath, chest pain, or leg swelling, please contact your scale assembly set up worker or our office immediately. Next steps: - Attend your echocardiogram appointment today as scheduled. - I will contact you via [employer] with your echocardiogram and lab results once they are available. - Ensure you have a follow-up plan with a scale assembly set up worker for your annual echocardiogram and routine care. Please let us know if you have any questions or concerns. Dr Saeed O: [phone] F: [phone] It was my pleasure to participate in the management of your care! Brissa Chester, MSN, SEAM SEWER-AGENT BASED MODELER documented in this encounterOur Lady Of [facility]06-03-2025 History of Present illness Narrative* Brissa Chester APRN.CNP - 07/22/2024 1:30 PM EDT Images from the original note were not included. [facility] Department of Cardiovascular Medicine SECTION OF INTERVENTIONAL CARDIOLOGY OUTPATIENT VISIT DATE July 22, 2024 OUTPATIENT VISIT TYPE ESTABLISHED FOLLOW UP Primary Choir Leader: Juvencio Saeed MD Chief Complaint: Patient here [...] successful TF TAVR via 14 Fr R RISK AND COMPLIANCE ANALYTICS DIRECTOR with a 25 mm Navitor at nominal [...] the initiation of metoprolol succinate by a scale assembly set up worker at [facility] a few days ago. [...] acute ([facility]) 12/10/2014 GERD (gastroesophageal reflux disease) Hiatal hernia 02/25/2018 Hypertension Lung nodule Macular degeneration Mitral stenosis Rheumatoid arthritis involving multiple sites with positive rheumatoid factor ([facility]) 03/07/2015 Dr. Hurley ([facility]) Tricuspid regurgitation PAST SURGICAL HISTORY Procedure [...] SPINE FUSN,POST INTERBODY 2012 Dr. Armando at [facility]. Diskectomy and laminectomy PAST SURGICAL [...] FOLIC ACID ORAL Take by mouth. vit A,C,N-Ttbp-Zomlph (OCUVITE PRESERVISION) 2,148 mcg-113 mg-45 mg-17.4mg tab [...] and lab results; will communicate findings via TunePatrolt. - Recommended annual echocardiogram follow-up; patient may choose to follow up locally or at [facility]. 2. Nonrheumatic mitral valve stenosis (I34.2) Previously [...] rehab sessions. Initiated on Metoprolol Succinate by scale assembly set up worker at [facility]. - Continue Metoprolol Succinate as prescribed. - Monitor BP regularly. 5. 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 6. History of recurrent deep vein thrombosis [...] You can follow up with a local scale assembly set up worker in [place] for your annual echocardiogram and routinecare. If you prefer, you can also follow up at another [facility] - as long as ECHO looks good today, you can follow-up with repeat ECHO in 1 years time - If you experience new or worsening symptoms, such as shortness of breath, chest pain, or leg swelling, please contact your scale assembly set up worker or our office immediately. Next steps: - Attend your echocardiogram appointment today as scheduled. - I will contact you via BillShrinkhart with your echocardiogram and lab results once they are available. - Ensure you have a follow-up plan with a scale assembly set up worker for your annual echocardiogram and routine care. [...] 4lbs from your dry weight, call your scale assembly set up worker Exercise: Be active and exercise every day. Smoking and alcohol abstinence/cessation, if applicable Please Visit [email or web address] Questions or Concerns after you go home? Please call Nurse program director/air personality line at . I spent a total of >45 minutes on the date of the service which included preparing to see the patient, aszb-zw-iigy patient care, completing clinical documentation, obtaining and/or reviewing separately obtained history, performing a medically appropriate examination, counseling and educating the patient/family/caregiver, ordering medications, tests, or procedures, independently interpreting results (not separately reported), communicating results to the patient/family/caregiver, and care coordination (not separately reported). Brissa Chester, MSN, SEAM SEWER-AGENT BASED MODELER documented in this encounterOur [facility]06-02-[facility] History of Present illness Narrative* Twyla Cuevas APRN.CNP - 07/21/2024 11:01 AM EDT Noted, agree, thank you! * Melissa Means, PAULA - 07/21/2024 10:50 AM EDT patient had inr completed at [facility] patients inr is 1.4 (patients inr [...] not agree with recommendation documented in this encounterOur [facility] History of Present illness Narrative* Melissa Means RN - 07/07/2024 4:47 PM EDT pcp agrees with information * Melissa Means RN - 07/07/2024 11:58 AM EDT patient had inr completed at [facility] patients inr is 1.4 (patients inr [...] not agree with recommendation documented in this encounterOur [facility] Telephone encounter Note * Telephone Encounter - [...] Means RN July 07, 2024 12:02 PM [facility] Miscellaneous Notes* Telephone Encounter - Melissa Means [...] 07, 2024 12:02 PM documented in this encounterOur [facility] Of [facility]05-07-2025 History of Present illness Narrative* Pili Benitez RN - 06/25/2024 3:57 PM EDT Images from the original note were not included. [facility] Care Path Telephonic Outreach Provider Action/EWELINAI N/A Patient identified by Name and Date of . Discussed care with patient. [facility] Update Spoke with the pt. At this time. She has been doing very well. She said that cardiac rehab has been doing good and she enjoys it She established with a new scale assembly set up worker at [place] as it was a little closer and [...] RN Incomplete Pt. Does not have a combat rifle crewmember Biannual Cardiology visit addressed 08/20/2024 05/26/2024 Pili [...] - Bi-Weekly Outreach (Recurring) Disposition Based on grades 9 12 tutor, the following disposition is advised: No action needed Pili Benitez RN June 25, 2024 3:57 PM documented in this encounterOur [facility]-2025 Telephone encounter Note * Telephone Encounter - Magalie Ngo LPN - 06/20/2024 3:27 PM EDT [facility] 02/23/23 Patient phones requesting refills as follows: Requested Prescriptions Pending Prescriptions Disp Refills fluticasone (FLONASE) 50 mcg/actuation nasal spray 3 each 3 Sig: Use 1 spray in each nostril once daily. Please review and advise. Magalie Ngo LPN [facility]05-02-2025 Miscellaneous Notes* Telephone Encounter - Magalie Ngo LPN - 06/20/2024 3:27 PM EDT [facility] 02/23/23 Patient phones requesting refills as follows: Requested Prescriptions Pending Prescriptions Disp Refills fluticasone (FLONASE) 50 mcg/actuation nasal spray 3 each 3 Sig: Use 1 spray in each nostril once daily. Please review and advise. Magalie Ngo LPN documented in this encounterOur Lady Of [facility] Evaluation note* Diagnosis Onset Date Resolution Status Admit Date Mitral stenosis acute June 20, 2024 10:07am Severe aortic stenosis acute Ma y 2024 10:07am Hypertension chronic June 20 10:07am [facility] Work Phone: 1(203) 883-328005-02-2025 Evaluation note* Diagnosis Onset Date Resolution Status Admit Date Mitral stenosis acute June 20, 2024 10:07am Severe aortic stenosis acute Ma y 2nd, 2025 10:07am Hypertension chronic June 20 10:07am Closed fracture of distal en d of left radius acute August 23, 2024 1 0:24am Closed head injury without concussion acute August 23, 2024 1 0:24am [facility] Work Phone: 1(551) 334-303205-02-2025 Evaluation note* Diagnosis Onset Date Resolution Status Admit Date Mitral stenosis acute June 20, 2024 10:07am Severe aortic stenosis acute 2024 10:07am Hypertension chronic June 20 10:07am Closed fracture of distal en d of left radius acute August 23, 2024 1 0:24am Closed head injury without concussion acute August 23, 2024 1 0:24am Declining functional status acute August 23, 2024 10:24am [facility] Work Phone: 1(703) 173-152005-02-2025 Evaluation note* Diagnosis Onset Date Resolution Status Admit Date Mitral stenosis acute June 20, 2024 10:07am Severe aortic stenosis acute 2024 10:07am Hypertension chronic June 20 10:07am Closed fracture of distal en d of left radius inactive August 23, 2024 1 0:24am Closed head injury without concussion inactive August 23, 2024 1 0:24am Declining functional status inactive August 23, 2024 10:24am [facility] Work Phone: 1(948) 557-469704-07-2025 History of Present illness Narrative* Pili Benitez RN - 05/26/2024 10:40 AM EDT Transitional Care Management (TCM) Follow-Up Note PCP Update / Actionable Items N/A N/A - No specialty updates needed Patient Source: In-Network Discharge Follow-up outreach: TCM enrolled patient Outreach Summary: TCM Update Spoke with the pt. At this time. Saw AGENT BASED MODELER Sunday- slight cough, still feels like she [...] 26, 2024 10:42 AM documented in this encounterOur Lady Of [facility] Telephone encounter Note * Telephone Encounter - Yesenia Weinstein LPN - 05/22/2024 11:34 AM EDT Information requested by Santos with [facility] Cardiac Rehab has been faxed as rquested [facility]04-03-2025 Miscellaneous Notes* Telephone Encounter - Yesenia Weinstein LPN - 05/22/2024 11:34 AM EDT Information requested by Santos with [facility] Cardiac Rehab has been faxed as rquested * Telephone Encounter - Lulu Quigley RN - 05/21/2024 11:00 AM EDT Santos with [facility] Cardiac Rehab calls to report [...] physician. Phone number for further questions is [phone]. Lulu Quigley RN documented in this encounterOur Lady Of [facility]-2025 Telephone encounter Note * Telephone Encounter - Lulu Quigley RN - 05/21/2024 11:00 AM EDT Santos with [facility] Cardiac Rehab calls to report [...] physician. Phone number for further questions is [phone]. Lulu Quigley RN [facility]04-01-2025 History of Present illness Narrative* Jimbo Swanson APRN.MUSHROOM GROWTH MEDIA MIXER - 05/20/2024 2:13 PM EDT Continue current dosing and recheck INR 2 weeks, advised of this at visit today. * Melissa Means RN - 05/20/2024 12:53 PM EDT patient had inr completed at [facility] patients inr is 1.6 (patients inr [...] is just slightly low documented in this encounterOur Lady Of [facility]-2025 Instructions* Patient Instructions* Jimbo Swanson APRN.CNS - [...] review all the medicines you take, even hkus-awg-ytfeqvt medicines. As you get older, the way [...] have certain medical conditions. documented in this encounterOur Lady Of [facility] History of Present illness Narrative* Jimbo Swanson [...] in the medical record. Outside specialists seen: [facility]/Family history review Reviewed and updated problem [...] She would like to establish with local scale assembly set up worker either in [facility]. Provided with pain medication to take at bedtime as needed for pain control affecting her sleep. Discussed possible OIC. She does note need for follow-up endoscopy at ~ 1 year from previous, prefers not to see Dr. Orellana. Jimbo Swanson APRN.CNS documented in this encounterOur Lady Of [facility]03-31-2025 History of Present illness Narrative* Pili Benitez [...] a little hoarse today People in her jain group are also sick She vacuumed her [...] so she is very involved in her jain right now. No new SDOH concerns were [...] 19, 2024 11:12 AM documented in this encounterOur Lady Of [facility]03-24-2025 History of Present illness Narrative* Pili Benitez [...] confirmed she has since spoke with her PROCESS TRAINER about that. 1.7-2.0 range established with her doctor as her desired range for her INR. Her ATB is completed that she was discharged on. She tolerated that well with no complaints. She's been getting out and going to jain and her choir practices. 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 [facility]03-24-2025 Miscellaneous Notes* Telephone Encounter - Yesenia Weinstein [...] when INR > 2.0 documented in this encounterOur Lady Of [facility]03-21-2025 Telephone encounter Note * Telephone Encounter - Jimbo Swanson APRN.CNS - 05/09/2024 3:24 PM EDT Recommend continue with current dosing unchanged. Can check INR next week or Sunday or keep her scheduled appointment in Coumadin clinic on May 20. [facility]03-21-2025 Telephone encounter Note* Telephone Encounter - Yesenia Weinstein LPN - 05/09/2024 2:13 PM EDT Spoke with patient. Patient states she was released from the hospital on Sunday and she resumed her coumadin on Sunday. Her current dosing is coumadin 5 mg every day except on & Sun in which she takes 6 mg. No other finding per patient. [facility]03-21-2025 Telephone encounter Note* Telephone Encounter - Yesenia Weinstein LPN - 05/09/2024 2:07 PM EDT ----- Message from Jimbo Timmons APRN.CNS sent at 05/09/2024 1:07 PM EDT ----- Check on current dosing of check on current dosing of Coumadin and when resumed. 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 She is to stop Aspirin when INR > 2.0 [facility]03-21-2025 Progress note* Result Encounter Note - Jimbo Swanson APRN.CNS - 05/09/2024 1:07 PM EDT Check on current dosing of check on current dosing of Coumadin and when resumed. 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 She is to stop Aspirin when INR > 2.0 [facility]03-17-2025 History of Present illness Narrative* Pili Benitez RN - 05/05/2024 10:32 AM EDT Transition Care Management (TCM) Initial Outreach PCP Update / Actionable Items N/A HRTIC TCM Home Visit Referral Source of Stratification: [facility] Hospital Admission Status: Discharged Readmission Risk Score: 10% Patient's zip code: [facility] Is zip code within program service area: [...] pt. And confirmed upcoming appts. Went to Choir Leader office this morning- everything going well since [...] schedule She has good support from her jain that help her get to her appts [...] TCM outreach phone calls Patient discharged from [facility] Discharge date: 05/03/24 Admitted for: TAVR procedure Readmission Risk: 10 Value-Based Contract: Mildred DELGADO Contact: Contact made with patient: Yes Hi, my name is Pili Benitez RN and I am calling from the [facility] on behalf of your PrimaryCare Provider, Claudine [...] I will send your request to a anthropology faculty member who will contact and assist you with [...] 05, 2024 10:45 AM documented in this encounterOur Lady Of [facility]03-17-2025 Instructions* Patient Instructions* Adalid Clark APRN.AGENT BASED MODELER - 05/05/2024 8:34 AM EDT Follow up/Disposition: [...] 4lbs from your dry weight, call your scale assembly set up worker Exercise: Be active and exercise every day. Smoking and alcohol abstinence/cessation, if applicable Heart Failure Education Booklet: information given previously. Please Visit [email or web address] documented in this encounterOur Lady Of [facility]03-17-2025 History of Present illness Narrative* Adalid Clark APRN.CNP - 05/05/2024 8:14 AM EDT Images from the original note were not included. [facility] [place] [facility] Department of Cardiovascular Medicine SECTION OF INTERVENTIONAL CARDIOLOGY OUTPATIENT VISIT DATE May 05, 2024 OUTPATIENT VISIT TYPE ESTABLISHED FOLLOW UP Primary Choir Leader: Dr. Saeed Chief Complaint: Patient here for cardiac follow up evaluation History of Present Illness: Patient is a 78 year old female who presents for follow up visit today. 05/02/2024 s/p TF TAVR via 14 Fr R RISK AND COMPLIANCE ANALYTICS DIRECTOR with a 25 mm Navitor Reports has [...] s/p TF TAVR via 14 Fr R RISK AND COMPLIANCE ANALYTICS DIRECTOR with a 25 mm Navitor -Echo post trace AI, gradients 12/6mmHg HTN disseminated histoplasmosis (ongoing treatment with undetectable histo antigen 12/19) VTE s/p IVC filter (warfarin) GIB in July from duodenal ulcer s/p cautery RA (but off treatment d/t histoplasmosis) COPD ASSESSMENT/ IMPRESSION 05/02/2024 s/p TF TAVR via 14 Fr R RISK AND COMPLIANCE ANALYTICS DIRECTOR with a 25 mm Navitor Reports has [...] 4lbs from your dry weight, call your scale assembly set up worker Exercise: Be active and exercise every day. Smoking and alcohol abstinence/cessation, if applicable Heart Failure Education Booklet: information given previously. Please Visit [email or web address] I spent a total of >35 minutes on the date of the service which included preparing to see the patient, hfjg-[id number] patient care, completing clinical documentation, obtaining and/or reviewing separately obtained history, performing a medically appropriate examination, counseling and educating the patient/family/caregiver, and ordering medications, tests, or procedures. Adalid Clark APRN.CNP documented in this encounterOur Lady Of [facility]03-13-2025 History of Present illness Narrative* Jimbo Swanson APRN.CNS - 05/01/2024 4:08 PM EDT Noted, agree * Melissa Means RN - 05/01/2024 2:52 PM EDT patient had inr completed at [facility] patients inr is 1.1 (patients inr [...] (05/20/24 - pt has appt w patrick PROCESS TRAINER also this day) for follow up INR. documented in this encounterOur Lady Of [facility]03-12-2025 History of Present illness Narrative* Nara Chapa [...] positive rheumatoid factor (HCC) 03/07/2015 Dr. Hurley ([facility]) Tricuspid regurgitation PAST SURGICAL HISTORY Procedure [...] SPINE FUSN,POST INTERBODY 2011 Dr. Armando at [facility]. Diskectomy and laminectomy PAST SURGICAL HISTORY OF 03/07/1999 removal facial lesion PAST SURGICAL HISTORY OF 08/17/2014 excision soft tissue mass left index finger TONSILLECTOMY PRIMARY/SECONDARY <AGE 12 TRANSCJEVON NAIR 12/28/2006 FAMILY HISTORY Problem Relation Age of [...] (FLONASE) 50 mcg/actuation nasal spray Use 1 [place] in each nostril once daily. vit A,C,R-Zwtq-Xjjfte (OCUVITE PRESERVISION) 2,148 mcg-113 mg-45 mg-17.4mg tab [...] tablet daily. Medication Comments documented by Steven ([employer])Muna on 03/05/2018 at 0933. 03/05/18 The medications are managed by this patient by: PATIENT Muna Harris ([employer]) [employer] for intermodal owner operator truck driver medications. ALLERGIES Allergen Reactions Penicillins [...] 03/21/24 11:36 AM Impression IMPRESSION: See result Manufacturing Worker: [facility] Transcribe Date/Time: Mar 21 2024 12:02P Dictated by : JACKELINE SCHULER MD This examination was interpreted and the report reviewed and electronically signed by: JACKELINE SCHULER MD on Mar 21 2024 12:04PM EST ECG COMPLETE Collection Time: 03/21/24 11:27 AM Impression SINUS RHYTHM WITH PREMATURE ATRIAL COMPLEXES BORDERLINE ECG Confirmed by IRA MC, ELIE ([id number]) on 03/30/2024 12:00:41 AM CTA CHEST (GATED) W IVCON Collection Time: 03/21/24 10:57 AM Impression IMPRESSION: Aortic Annulus and valve anatomy as described above Normal thoracic and abdomiinal aorta.Atherosclerotic changes as in the body of the report.Minimum luminal diameter throughout: 7 mm Manufacturing Worker: [facility] Transcribe Date/Time: Mar 21 2024 11:22A Dictated by : CALIXTO BLACKWOOD MD This examination was interpreted and the report reviewed and electronically signed by: CALIXOT BLACKWOOD MD on Mar 21 2024 12:53PM [...] 5:59 PM Pager/Contact #: documented in this encounterOur Lady Of [facility]03-12-2025 Instructions* Patient Instructions* Monica Aguila APRN.AGENT BASED MODELER - 04/30/2024 1:32 PM EDT Dest[place] You are scheduled for TF-TAVR on 05/02/[address] Saeed Instructed to go to [facility] J1-1 REGISTRATION TODAY, after all appointment to [...] into surgery. - No make-up or nail mauritian. - No jewelry, including watches, wedding rings and any body jewelry. // Questions about preparing for your procedure? Call your doctors office: Dr. Orlin Meyer [phone] Dr. Gallito Cortez [phone] Dr. Jason Olea [phone] Dr. Juvencio Saeed [phone] Interventional Discharge Readiness Tool Your Anticipated Discharge Needs: If you are discharged the same day -You must have accommodations in [place] (if you live over 2 hours away) [...] your risk of future heart problems. For [facility] Cardiac Rehab call [phone] to schedule after you are home from your procedure. If you do not receive your referral, please call your scale assembly set up worker's office for the order. It was nice to see you again, I wish you the best. Kindly, Monica Aguila APRN.CNP documented in this encounterOur Lady Of [facility]03-[facility]-2025 History of Present illness Narrative* Monica Aguila APRN.CNP - 04/30/2024 1:00 PM EDT Images from the original note were not included. [facility] Department of Cardiovascular Medicine SECTION OF INTERVENTIONAL CARDIOLOGY OUTPATIENT VISIT DATE April 30, 2024 OUTPATIENT VISIT TYPE ESTABLISHED FOLLOW UP Primary Choir Leader: Dr. Saeed Chief Complaint: Patient here for cardiac follow up evaluation History of Present Illness: Patient is a 78 year old female who presents for follow up visit today. Patient was here with a couple from her jain. She lives at home alone and is [...] no Dental clearance: Completed and scanned in [employer] PPM: No Anticoagulation: Coumadin- Last dose taken 04/27/2024 Contrast Allergy: no Surgeon Note 03/25/2024 KCCQ-12: 03/25/2024 15 Ft W: 03/25/2024 PLAN AND RECOMMENDATIONS: Haydee Bustamante is scheduled for TF-TAVR on 05/02/[address] Saeed Instructed to go to [facility] REGISTRATION TODAY, after all appointment to register for the procedure. ON THE PROCEDURE DAY 05/03/2024, Report to [facility] J1-2 at 8:30. Instructions: The Evening Before [...] into surgery. - No make-up or nail mauritian. - No jewelry, including watches, wedding rings and any body jewelry. // Questions about preparing for your procedure? Call your doctors office: Dr. Orlin Meyer [phone] Dr. Gallito Cortez [phone] Dr. Jason Olea [phone] Dr. Juvencio Saeed [phone] Interventional Discharge Readiness Tool Your Anticipated Discharge Needs: If you are discharged the same day -You must have accommodations in [place] (if you live over 2 hours away) [...] your risk of future heart problems. For [facility] Card[facility] call [phone] to schedule after you are home from your procedure. If you do not receive your referral, please call your scale assembly set up worker's office for the order. I spent a total of 35 minutes on the date of the service which included preparing to see the patient, lrhs-jx-vpat patient care, completing clinical documentation, obtaining and/or reviewing separately obtained history, performing a medically appropriate examination, counseling and educating the pat ient/family/caregiver, and communicating results to the patient/family/caregiver. Monica Aguila APRN.AGENT BASED MODELER documented in this encounterOur Lady Of [facility]cy [facility]03-12-2025 History of Present illness Narrative* Ursula Rosario RT(Ade) - 04/30/2024 12:00 PM EDT Radiology Service [...] PATIENT PRESENTS WITH AN IMPLANTABLE OR ATTACHED HOME CONNECT LPN: No RADIOLOGY DEPARTMENT: General X-ray: Exam(s) Completed: Chest X-Ray PERIPHERAL IV DATA: Not applicable SIGNED BY: RT Leslie(R) April 30, 2024 11:27 AM documented in this encounterOur Lady Of [facility]03-03-2025 History of Present illness Narrative* Geno Hart MD - 04/21/2024 11:00 AM EST Patient presents with: Disseminated histoplasmosis : Recurrent due to immunosuppression HPI: 78-year-old woman with 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 This recurrence was found as it was starting to be worked up by her combat rifle crewmember in February 2023 and we started therapy again when she was transferred to [facility] Due to massive hemoptysis found out to be COVID-positive. She was treated with remdesivir and dexamethasone and then put back on itraconazole March 19 for her histoplasma recurrence. She had previous disseminated histoplasmosis including [facility] Currently doing well [...] be getting a TAVR [facility] due to aortic valve problems. Her bronchiectasis and COPD is stable with a daily inhaler Complicating problem of warfarin use Blood pressure usually controlled on meds a little high right now but she says she was anxious trying to get in here traffic was a problem Vaccine counseling-likes to stay up-to-date Immunization History Administered Date(s) Administered COVID-19 original vaccine, age 12+ yr, monovalent ([employer] - ARIAS TOP) 07/11/2021 COVID-19 original vaccine, age 12+ yr, monovalent ([employer] - PURPLE TOP) 04/22/2020 05/13/2020 11/09/2020 11/21/2020 COVID-19 vaccine, age 12+ yr ([employer] COMIRNATY) 01/04/2023 11/22/2023 COVID-19 vaccine, age 12+ yr, bivalent ([employer] 11/10/2021 TD Adult 11/06/2019 diphtheria tetanus (DT) [...] (FLONASE) 50 mcg/actuation nasal spray Use 1 [place] in each nostril once daily. 3 Each 3 vit A,C,L-Tzjt-Yajrwa (OCUVITE PRESERVISION) 2,148 mcg-113 mg-45 mg-17.4mg tab [...] POSIFLUSH) 10 mL INTRAVENOUS DIRECTED PRN Ruben Messina, ALLERGIES Allergen Reactions Penicillins Hives PAST MEDICAL HISTORY Diagnosis Date Anemia Bone marrow involvement with histoplasmosis Aortic stenosis COPD (chronic obstructive pulmonary disease) (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 Diverticulosis of colon (without mention of hemorrhage) Diverticulosis DVT, recurrent, lower extremity, acute ([facility]) 12/10/2014 GERD (gastroesophageal reflux disease) Hiatal hernia 02/25/2018 Hypertension Lung nodule Macular degeneration Mitral stenosis Rheumatoid arthritis involving multiple sites with positive rheumatoid factor ([facility]) 03/07/2015 Dr. Hurley ([facility]) Tricuspid regurgitation PAST SURGICAL HISTORY Procedure [...] SPINE FUSN,POST INTERBODY 2012 Dr. Armando at [facility]. Diskectomy and laminectomy PAST SURGICAL [...] 6 months (around 10/22/2024). documented in this encounterOur Lady Of [facility]25 History of Present illness Narrative* Leandra Quinonez APRN.CNS - 04/16/2024 9:13 AM EST Images from the original note were not included. documented in this encounterOur Lady Of [facility]-2025 History of Present illness Narrative* Leandra Quinonez APRN.CNS - 04/15/2024 12:44 PM EST I [...] follow-up with her local dentist. Jasmyn Esposito [facility] [phone] Pacemaker evaluation: N/A Shante, Please schedule Haydee Bustamante [phone] for COMMERCIAL TF- TAVR ( CARLYN) Procedure on: Thursday May 02, 2024 Lab/CXR/EKG Appointment: SundayApril 30 Please schedule STRUCTURAL VALVE CLINIC Visit on: SundayApril 30 Date of J4-1 Anesthesia only: SundayApril [address] lab schedule on : Thursday May 02, 2024 at 8:30 AM CPT Code: 95717 Diagnosis Code: I35.0 FLEXBOARD OPERATOR: Dr. Saeed Performing Physician: Dr. Saeed OR: 81 Surgeon: Dr. Francis Please schedule bed reservation for post procedure-(should be a TCI) EVAN schedule- intra/op Patient also needs INSURANCE PRECERTIFICATION ADL SCORE___6 SURVIVAL RATE GREATER THAN 1 YEAR____Y___(LOOKING FOR A YES) EF ___N__(GREATER THAN 50%) Thank you. Leandra Quinonez APRN.CNS Request sent to scheduling. documented in this encounterOur Lady Of [facility]02-[facility]-2025 Telephone encounter Note * Telephone Encounter - Leandra Quinonez APRN.CNS - 04/15/2024 12:12 PM EST Tried to call patient to schedule TAVR procedure. Left message for her to call the office. Leandra Quinonez APRN.CNS [facility]25 Miscellaneous Notes* Telephone Encounter - Leandra Quinonez APRN.CNS - 04/15/2024 12:12 PM EST Tried to call patient to schedule TAVR procedure. Left message for her to call the office. 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 [employer] and she has a goal to get [...] were you homeless or living in a penitentiary (including now)?: No Transportation Needs In the [...] have money to get more.: Never true Utilities In the past 12 months has the [...] Contact Your Physician Team Disposition Based on grades 9 12 tutor, the following disposition is advised: No action needed Pili Benitez RN April 14, 2024 4:01 PM documented in this encounterOur Lady Of [facility]cy [facility]02-[facility]-2025 History of Present illness Narrative* Juvencio Saeed MD - 04/05/2024 4:01 PM EST Interventional Cardiology Staff Note Dr. Saeed receives payments from several device companies for educational activities, advisory boardduties, consulting, and/or proctoring. The companies include: [employer], [employer], and [employer]. A product by [employer], [employer], [employer], or a competitor, may be used in this patient's care. Dr. Saeed does not receive any money for products he or any other [facility] physicians prescribe or use. Dr. Saeed's choice on which product used in this patient's case is or was not influenced by his relationship with any company. Dr. Saeed selected the product that in his hands is believed to be the best option for this patient's treatment. This was discussed with the patient. Juvencio Saeed MD, MSc documented in this encounterOur Lady Of [facility]-14-[facility] History of Present illness Narrative* Tracey Heller APRN.AGENT BASED MODELER - 04/04/2024 6:21 AM EST Bay Heller APRN.AGENT BASED MODELER * Melissa Means RN - 04/03/2024 1:48 PM EST patient had inr completed at [facility] patients inr is 1.7 (patients inr [...] for follow up INR. documented in this encounterOur Lady Of [facility]cy [facility]02-13-2025 Telephone encounter Note * Telephone Encounter - [...] a TAVR. Alisa Allen RN, BSN Nurse Picking Crew Supervisor for Dr. Bartolome Francis [facility]02-13-2025 Miscellaneous Notes* Telephone Encounter - Alisa Allen [...] a TAVR. Alisa Allen RN, BSN Nurse Picking Crew Supervisor for Dr. Bartolome Francis * Telephone Encounter - Karen Nunez - 04/02/2024 1:44 PM EST Images from the original note were not included. LOCAL PATIENT Received [place] Email from Dr. Christophe Bustamante is being referred to [facility]ol[facility] [address] Patient diagnosis/Reason for consult: Aortic Valve Stenosis; Chronic Heart Failure Referral triage process explained: N/A Patient will receive a call from Cardiac NPM after triage review with surgeon to discuss any additional testing and/or consults that will be scheduled. Pt will then receive a call from our scheduling office for scheduling. Please call pt at [phone]. Patient Registration: Registration complete/updated: yes Insurance card(s) scanned in [facility] with in the past year: Yes: Date: 10/18/2023 Pt's MyChart is active. Ok to communicate to pt via BillShrinkhart not asked Medical Records: Records in Epic (internal CC records): Yes Imaging in Epic (internal CC records): Yes Care Everywhere - queried yes, downloaded Yes Linked Outside Organizations (list): Additional providers added to Care Teams: Yes Additional Notes/Comments: Internal Referral Enct routed to: Yes, Cardiac NPM for triage Karen Nunez documented in this encounterOur Lady Of [facility]cy [facility]02-12-2025 Telephone encounter Note * Telephone Encounter - Karen Nunez - 04/02/2024 1:44 PM EST Images from the original note were not included. LOCAL PATIENT Received [place] Email from Dr. Christophe Bustamante is being referred to Bartolome Francis M.D. by Juvencio Saeed [address] [place] [id number] Patient diagnosis/Reason for consult: Aortic Valve Stenosis; Chronic Heart Failure Referral triage process explained: N/A Patient will receive a call from Cardiac NPM after triage review with surgeon to discuss any additional testing and/or consults that will be scheduled. Pt will then receive a call from our scheduling office for scheduling. Please call pt at [phone]. Patient Registration: Registration complete/updated: yes Insurance card(s) scanned in [facility] with in the past year: Yes: Date: 10/18/2023 Pt's BillShrinkhart is active. Ok to communicate to pt via BillShrinkhart not asked Medical Records: Records in [facility] (internal CC records): Yes Imaging in [facility] (internal CC records): Yes Care Everywhere - queried yes, downloaded Yes Linked Outside Organizations (list): Additional providers added to Care Teams: Yes Additional Notes/Comments: Internal Referral Enct routed to: Yes, Cardiac NPM for triage Karen Nunez [facility]02-12-[facility] Telephone encounter Note* Telephone Encounter - David Hoffmann - 04/02/2024 9:16 AM EST IN [facility] Work Phone: [phone] Miscellaneous Notes* Telephone Encounter - Gautam Hoffmannfannie - 04/02/2024 9:16 AM EST IN * Telephone Encounter - Karen Nunez - 04/01/2024 4:53 PM EST Insurance Card(s) scanned into [employer] Please register/advise Thank You! documented in this encounterOur Lady Of Mercy [facility]02-11-2025 Telephone encounter Note * Telephone Encounter - Karen Nunez - 04/01/2024 4:53 PM EST Insurance Card(s) scanned into [employer] Please register/advise Thank You! [facility]-10-20[facility] History of Present illness Narrative* Estefania Ervin APRN.SANTY - 03/31/2024 12:02 PM EST [facility] Department of Cardiovascular Medicine SECTION OF INTERVENTIONAL CARDIOLOGY Date March 31, 2024 MULTI DISCIPLINARY TAVR TEAM MEETING Microsoft Teams Meeting Team members: Dr. Cortez, Dr. Meyer, Dr. Saeed, Dr. Olea, Dr. Macdonald, Dr. Francis, Dr. lAba,Dr. Dodge, Dr. Gomes, Dr. Foster, Dr. Ann, Dr. Masters, Mya Ervin CNP. J. MarchSANTY tavares C. Gady CNP, Cabrera Han RN PATIENT NAME: Haydee [...] be handled by: CVM coordinator Estefania Ervin APRN.AGENT BASED MODELER documented in this encounterOur Lady Of Mercy [facility]02-10-2025 History of Present illness Narrative* Yu Torres [...] or unnecessary to reach patient: Left message BillShrinkhart message sent Letter mailed Navigation Signature: Yu Torres MA March 31, 2024 10:42 AM documented in this encounterOur Lady Of [facility]cy [facility]02-05-2025 History of Present illness Narrative* Yu Torres MA - 03/26/2024 9:38 AM EST POPULATION HEALTH NAVIGATION OUTREACH Action/FYI Last OV: 02/29/2024 No upcoming appts noted. Last Wellness Exam: Unknown Patient is due for: Annual Wellness Outcome: Left VM for patient to return call to schedule appointment/address care gaps. BillShrinkhart message sent. Reason for Outreach Care Gap/HCC or Scheduling Wellness Visits Care Gaps due: Medicare Annual Wellness Visit Patient Contacted: Unable or unnecessary to reach patient: Left message MyChart message sent Navigation Signature: Yu Torres MA March 26, 2024 9:38 AM documented in this encounterOur Lady Of [facility]02-04-2025 History of Present illness Narrative* Bartolome Francis MD - 03/25/2024 3:45 PM EST Images from the original note were not included. [facility] DEPARTMENT OF CARDIAC SURGERY OUTPATIENT VISIT DATE March 25, 2024 OUTPATIENT VISIT SERVICE DATE: 03/25/2024 SERVICE TIME: 3:45 PM PCP: Claudine Durán [address] [place] [address] Referring Physician: Monica Aguila [address] [facility] [address] Patient Type: Consult Visit to determine Surgery: [...] the report.Minimum luminal diameter throughout: 7 mm Manufacturing Worker: KRYSTAL Transcribe Date/Time: Mar 21 2024 11:22A [...] record Bartolome Francis MD documented in this encounterOur Lady Of [facility]02-04-2025 Instructions* Patient Instructions* Monica Aguila APRN.AGENT BASED MODELER - 03/25/2024 11:06 AM EST Destinee Lozano [...] your risk of future heart problems. For [facility] call [phone] to schedule after you are home from your procedure. If you do not receive your referral, please call your scale assembly set up worker's office for the order. We also discussed [...] Kindly, Monica Aguila APRN.CNP documented in this encounterOur Lady Of Mercy [facility]02-04-2025 History of Present illness Narrative* Monica Aguila APRN.CNP - 03/25/2024 11:00 AM EST Images from the original note were not included. [facility] Department of Cardiovascular Medicine SECTION OF INTERVENTIONAL CARDIOLOGY OUTPATIENT VISIT DATE March 25, 2024 OUTPATIENT VISIT TYPE ESTABLISHED FOLLOW UP Primary Choir Leader: Dr. Saeed Chief Complaint: Patient here for [...] I have personally reviewed the above testing. [place] CARDIOMYOPATHY QUESTIONNAIRE (KCCQ-12) Activity: A. Showering/bathing: Extremely [...] for other reasons. 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 For [facility] call [phone] to schedule after you are home from your procedure. If you do not receive your referral, please call your scale assembly set up worker's office for the order. We also discussed [...] which included preparing to see the patient, [id number] patient care, completing clinical documentation, obtaining and/or reviewing separately obtained history, counseling and educating the patient/family/caregiver, independently interpretin g results (not separately reported), and communicating results to the patient/family/caregiver. Monica Aguila APRN.SANTY documented in this encounterOur Lady Of [facility]02-04-2025 History of Present illness Narrative* Chacho Anaya RRT - 03/25/2024 9:43 AM EST PULM FUNCTION: Provider: Monica Aguila APRN.CNP Spirometry: 1 DLCO: 1 J- LAB # 1 - PFT documented in this encounterOur Lady Of Mercy [facility]02-04-2025 History of Present illness Narrative* Ken Lovelace, RT(R) - 03/25/2024 9:00 AM EST RADIOLOGY [...] PATIENT PRESENTS WITH AN IMPLANTABLE OR ATTACHED HOME CONNECT LPN: No CREATININE: Creatinine Date Value Ref Range [...] DIAGNOSTIC CT PERFORMED: No IV SITE: Ambulatory: NV only - direct IV injection in the [...] information regarding radiation safety can be found usingMobules link: [email or web address] SIGNATURE: RT Howie(Ade) PATIENT NAME: Haydee Bustamante DATE: March 25, 2024 TIME: 8:38 AM PAGER/CONTACT #: documented in this encounterOur Lady Of Mercy [facility]02-02-2025 Telephone encounter Note * Telephone Encounter - [...] Caitlin Servin RN. In Department of CARDIOLOGY. [facility]02-02-[facility]25 Miscellaneous Notes* Telephone Encounter - Caitlin Servin [...] In Department of CARDIOLOGY. documented in this encounterOur Lady Of Mercy [facility]01-31-2025 History of Present illness Narrative* Yu Torres MA - 03/21/2024 2:37 PM EST POPULATION HEALTH NAVIGATION OUTREACH Action/FYI Last OV: 02/29/2024 No upcoming appts noted. Last Wellness Exam: Unknown Patient is due for: Annual Wellness Outcome: Left VM for patient to return call to schedule appointment/address care gaps. BillShrinkhart message sent. Reason for Outreach Care Gap/HCC or Scheduling Wellness Visits Care Gaps due: Medicare Annual Wellness Visit Patient Contacted: Unable or unnecessary to reach patient: Left message BillShrinkhart message sent Navigation Signature: Yu Torres MA March 21, 2024 2:37 PM documented in this encounterOur Lady Of [facility]01-31-2025 History of Present illness Narrative* Ursula Rosario [...] PATIENT PRESENTS WITH AN IMPLANTABLE OR ATTACHED HOME CONNECT LPN: No RADIOLOGY DEPARTMENT: General X-ray: Exam(s) Completed: Chest X-Ray PERIPHERAL IV DATA: Not applicable SIGNED BY: RT Leslie(R) March 21, 2024 11:38 AM documented in this encounterOur Lady Of Mercy [facility]01-31-2025 History of Present illness Narrative* Candace Sotomayor [...] PATIENT PRESENTS WITH AN IMPLANTABLE OR ATTACHED HOME CONNECT LPN: No RADIOLOGY DEPARTMENT: CT; Exam(s) Completed: Cardiac PERIPHERAL IV DATA: Site assessment: Clean,Dry and Intact, Site disposition Discontinued SIGNED BY: RT Clark(R) March 21, 2024 10:53 AM documented in this encounterOur Lady Of [facility]01-31-2025 History of Present illness Narrative* Juvencio Saeed MD - 03/21/2024 9:30 AM EST [facility] Department of Cardiovascular Medicine SECTION OF INTERVENTIONAL CARDIOLOGY OUTPATIENT VISIT DATE March 21, 2024 OUTPATIENT VISIT TYPE NEW PRIMARY CARE PHYSICIAN: Claudine Durán [address] [place] [address] REFERRING PHYSICIAN: No referring provider defined for [...] neighbors and friends - very active in jain community. She denies chest pain, shortness of [...] positive rheumatoid factor (HCC) 03/07/2015 Dr. Hurley ([facility]) Tricuspid regurgitation PAST SURGICAL HISTORY Procedure [...] SPINE FUSN,POST INTERBODY 2012 Dr. Armando at [facility]. Diskectomy and laminectomy PAST SURGICAL [...] fluticasone (FLONASE) 50 mcg/actuation nasal spray^Use 1 [place] in each nostril once daily.^Disp: 3 Each^Rfl: 3 vit A,C,P-Dyht-Mwmhyw (OCUVITE PRESERVISION) 2,148 mcg-113 mg-45 mg-17.4mg tab^Take [...] CTS assessment. Following[facility] I personally interviewed, confirmed and edited the above information as obtained by others. Juvencio Saeed M.D., M.Sc., F.A.C.C., F.S.C.A.I. Staff, Interventional Cardiology [facility] Desk [facility], [address] [place] [address] Office , toll-free [phone], [phone] Office Appointments: [phone], toll-free [phone], [phone] documented in this encounterOur Lady Of [facility]cy [facility]01-10-2025 Instructions* Patient Instructions* Claudine Durán MD - 02/29/2024 5:43 PM EST .aisavs documented in this encounterOur Lady Of Mercy [facility]01-10-2025 History of Present illness Narrative* Claudine Durán MD - 02/29/2024 5:23 PM EST This note was created using bigtincanriter. Subjective Haydee Bustamante is a 78 year [...] and was restarted on methotrexate by her equipment maintenance superintendent, Dr. Jane Montoya. She was also prescribed [...] flu vaccines on the same day at [facility]. She reports some anxiety related to her upcoming surgery and recent life events, including a changein her email and bank account. She has a support system in place, including a friend who will accompany her to appointments and a medical power of real estate associate attorney. She has advanced directives on file. She denies severe depression but reports being in a bad mood recently due to stress from her responsibilities with the [employer]. PAST MEDICAL HISTORY Diagnosis Date Anemia [...] positive rheumatoid factor (HCC) 03/07/2015 Dr. Hurley ([facility]) Unspecified hemorrhoids without mention of complication [...] (FLONASE) 50 mcg/actuation nasal spray Use 1 [place] in each nostril once daily. vit A,C,L-Mqab-Bmmeym (OCUVITE PRESERVISION) 2,148 mcg-113 mg-45 mg-17.4mg tab [...] heart failure with preserved ejection fraction (HFpEF) ([facility]) (I50.32) # Nonrheumatic aortic valve stenosis (I35.0) - Scheduled for TAVR on the of next month at the main campus. - Reports significant heart murmur audible during auscultation. - No current edema noted; Lasix on hold. - Spironolactone therapy discontinued. - Follow-up with cardiology on the of this month. # Rheumatoid arthritis with positive rheumatoid factor, involving unspecified site (HCC) (M05.9) - Under management by Dr. Jane Montoya at [facility]. - Resumed methotrexate and initiated sulfasalazine 2 tablets twice daily; significant improvement in pain and stiffness reported. - Recent corticosteroid injection provided additional relief. - Humira therapy currently discontinued. # COPD without exacerbation (HCC) (J44.9) # Bronchiectasis without complication ([facility]) (J47.9) - Conditions are stable; no exacerbations reported. - Cleared for upcoming TAVR procedure. # Screening for depression (Z13.31) # Encounter for screening examination for other mental health and behavioral disorders (Z13.39) - Depression screening completed; no severe depression noted. - Mild anxiety related to upcoming surgery; no pharmacological or counseling interventions requiredat this time. Claudine Durán MD documented in this encounterOur Lady Of [facility]cy [facility]01-10-2025 History of Present illness Narrative* Melissa Means RN - 02/29/2024 3:45 PM EST patient had inr completed at [facility] patients inr is 2.0 (patients inr [...] for follow up INR. documented in this encounterOur Lady Of [facility]cy [facility]01-02-2025 Telephone encounter Note * Telephone Encounter - [...] Please review and advise. Jannet Aldana RN [facility] Work Phone: 1(385) 408-479301-02-2025 Miscellaneous Notes* Telephone Encounter - Jannet Aldana [...] advise. Jannet Aldana RN documented in this encounterOur Lady Of Mercy Hospital [facility]12-12-2024 History of Present illness Narrative* Jimbo Swanson APRN.CNS - 01/31/2024 4:15 PM EST Continue with Coumadin dose unchanged and check INR in 4 weeks * Melissa Means RN - 01/31/2024 2:06 PM EST patient had inr completed at [facility] patients inr is 1.9 (patients inr [...] for follow up INR. documented in this encounterOur Lady Of Mercy Hospital [facility]12-10-2024 History of Present illness Narrative* Ilda Miller RN - 01/29/2024 2:57 PM EST CD Telephonic Outreach Provider Action/FYI N/A 2nd attempt [...] more often than normal? No Based on grades 9 12 tutor, the following disposition is advised: No symptoms or symptoms present, not severe. Routed to: No Action Needed PAN Education Provided this Outreach: No Appointments for Next 60 Days Date Time Provider Location Dept Phone 01/31/2024 10:30 AM AFWAD [facility] [place] [phone] 02/29/2024 3:40 PM CLAUDINE DURÁN [facility] [place] [phone] Ilda Miller RN January 29, 2024 3:01 [...] goal align with programs offered at the [facility]? No Patient accepts telephonic outreach. PAN Education [...] stressful. Can we connect you with a [facility] Health Tool Crib Clerk to find a program that could help you meet your goals? No Falls completed:Yes ADL's updated: Yes Ilda Miller RN January 29, 2024 3:32 PM documented in this encounterOur Lady Of Mercy [facility]12-02-2024 History of Present illness Narrative* Ilda Miller RN - 01/21/2024 1:25 PM EST [facility] Telephonic Outreach Provider Action/FYI N/A Contacted for: Routine Telephonic Outreach Contact made with patient: No, left message. Ilda Miller RN January 21, 2024 1:28 PM Goals/Falls/ADL Update Contact made with patient: No, left message. Ilda Miller RN January 21, 2024 1:28 PM documented in this encounterOur Lady Of Mercy [facility]11-21-2024 History of Present illness Narrative* Jimbo wSanson APRN.MUSHROOM GROWTH MEDIA MIXER - 01/10/2024 12:45 PM EST Coumadin 6mg and Sunday and 5mg all other days and recheck in 3 weeks due to the cc is closed at the 2 week jasmyn * Melissa Means, RN - 01/10/2024 12:39 PM EST patient had inr completed at [facility] CC patients inr is [...] not agree with recommendation documented in this encounterOur Lady Of Mercy [facility]11-19-2024 Note* Addendum Note - Monica Aguila APRN.CNP - 01/08/2024 4:18 PM ESTAddended by: MONICA AGUILA on: 01/08/2024 04:18 PM Modules accepted: Orders [facility]11-19-2024 Miscellaneous Notes* Addendum Note - Monica Mccormick APRN.CNP - 01/08/2024 4:18 PM ESTAddended by: MONICA MCCORMICK on: 01/08/2024 04:18 PM Modules accepted: Orders documented in this encounterOur Lady Of Mercy [facility]11-19-2024 History of Present illness Narrative* Monica Aguila APRN.SANTY - 01/08/2024 9:30 AM EST TAVR STRUCTURAL REVIEW FORM Orders placed by: Dr. Drew on 01/02/2024 Records Reviewed: 01/08/2024 Appt request sent: 01/08/2024 Records in [facility] have been reviewed. Severe . Request has been sent to the anthropology faculty member who will arrange an appointment schedule. Please [...] greater, then it should be by an Fusion Juncture Grinder ONLY (Dr. Cota, , Dr. Olea, Dr. [...] Gan/Dr. Anjali Aguila APRN.CNP documented in this encounterOur Lady Of Mercy [facility]11-15-2024 Telephone encounter Note * Telephone Encounter - [...] Hart MD 01/04/2024 2:33 PM pgr [id number] [facility]11-15-2024 Miscellaneous Notes* Telephone Encounter - Geno Hart [...] 2:33 PM pgr [id number] documented in this encounterOur Lady Of Mercy [facility]11-13-2024 History of Present illness Narrative* Ines Drew MD - 01/02/2024 9:45 AM EST Images from the original note were not included. [facility] Department of Cardiovascular Medicine SECTION [...] 2019 with steadily rising gradients referred to [facility] for intervention -Followed by Dr. Hart from [place] for histoplasmosis, recent labs 12/19 show histo antigen negative -Followed by Dr. Messina from [facility] cardiology for and pericardial effusion last seen 08/27/23, then by Raji ROSALES 10/18/23 - awaiting evaluation for aortic valve intervention. Referred to [facility] for further management. Patient reports at baseline she is very limited due to joint pain in hands, wrists "everywhere" since being off RA treatment for histo. She uses cane in clinic today - seen in wheelchair. Reports at baseline lives at home alone with help from neighbors and friends - very active in jain community.No family close by. No reported cardiac [...] [facility]) 03/07/2015 Dr. Hurley ([facility]) Unspecified hemorrhoids without mention of complication [...] SPINE FUSN,POST INTERBODY 2012 Dr. Armando at [facility]. Diskectomy and laminectomy PAST SURGICAL [...] (FLONASE) 50 mcg/actuation nasal spray Use 1 [place] in each nostril once daily. pantoprazole DR (PROTONIX) 40 mg tablet Take 1 tablet by mouth once daily. vit A,C,Z-Mbjb-Gxnqao (OCUVITE PRESERVISION) 2,148 mcg-113 mg-45 mg-17.4mg tab [...] We recommend a follow-up with TAVR clinic. [facility] STAFF PHYSICIAN NOTE OF PERSONAL INVOLVEMENT IN [...] Drew MD CONTACT INFORMATION: Ines Drew M.D., F.A.CMadison [facility]unders Department of Cardiovascular Medicine [facility] Desk [address] [place] [address] Office - [phone] extension [phone] Office E-mail: [email or web address] Appointments: [phone] extension [phone] documented in this encounterOur Lady Of Mercy [facility]11-07-2024 History of Present illness Narrative* Jimbo Swanson APRN.CNS - 12/27/2023 2:01 PM EST Coumadin 6mg Thurs and 5mg all other days and recheck in 2 weeks * Melissa Means RN - 12/27/2023 12:19 PM EST patient had inr completed at [facility] patients inr is 1.5 (patients inr [...] not agree with recommendation documented in this encounterOur Lady Of Mercy [facility]10-31-2024 History of Present illness Narrative* Rosa Wallace RN - 12/20/2023 11:22 AM EDT [facility] Telephonic Outreach Provider Action/FYI Contacted for: Engagement Contact made with patient: Yes Patient identified by name and date of . Discussed care with patient Outcomes: Patient switched from [facility] to telephone outreach Are you experiencing any new or worsening symptoms you need to talk about today? No Based on grades 9 12 tutor, the following disposition is advised: No symptoms or symptoms present, not severe. Routed to: No Action Needed PAN Education Provided this Outreach: No Rosa Wallace RN December 20, 2023 11:29 AM documented in this encounterOur Lady Of Mercy [facility]10-31-2024 Telephone encounter Note * Telephone Encounter - Jimbo Swanson APRN.CNS - 12/20/2023 7:12 AM EDT ok [facility]10-31-2024 Miscellaneous Notes* Telephone Encounter - Jimbo Swanson APRN.CNS - 12/20/2023 7:12 AM EDT ok * Telephone Encounter - Migdalia Montoya LPN - 12/19/2023 10:06 AM EDT Patient is not able to fill her 1 mg Coumadin. Directions on script are different from what patientwas instructed to take verbally. Patient has been taking 6 mg day and 5 mg all other days. Rx that was sent on 12/12 has 6 mg Thursday and 4 mg all other days. Please update prescription and send to pharmacy. documented in this encounterOur Lady Of Mercy [facility]10-30-2024 History of Present illness Narrative* Rosa Wallace RN - 12/19/2023 3:54 PM EDT [facility] Telephonic Outreach Provider Candelaria/SHAYNE Contacted for: Engagement Contact made with patient: No, left message. Rosa Wallace RN December 19, 2023 3:57 PM documented in this encounterOur [facility] Of [facility] Telephone encounter Note * Telephone Encounter - Migdalia Montoya LPN - 12/19/2023 10:06 AM EDT Patient is not able to fill her 1 mg Coumadin. Directions on script are different from what patientwas instructed to take verbally. Patient has been taking 6 mg Thursday and 5 mg all other days. Rx that was sent on 12/12 has 6 mg Thurs and 4 mg all other days. Please update prescription and send to pharmacy. [facility] History of Present illness Narrative* Geno Hart MD - 12/18/2023 11:00 AM EDT Patient presents with: Disseminated histoplasmosis : Follow-up on itraconazole HPI: 78-year-old woman immunosuppressed due to rheumatoid arthritis on Biologics, COPD with bronchiectasis, previously treated by [facility] for disseminated histoplasmosis and did well. In [...] relatively normal. She still active with her jain and at meetings and professional organizations and [...] (FLONASE) 50 mcg/actuation nasal spray Use 1 [place] in each nostril once daily. [address] (PROTONIX) 40 mg tablet Take 1 tablet by mouth once daily. 90 tablet 3 vit A,C,S-Sxop-Sdpsiv (OCUVITE PRESERVISION) 2,148 mcg-113 mg-45 mg-17.4mg tab [...] positive rheumatoid factor (HCC) 03/07/2015 Dr. Hurley ([facility]) Unspecified hemorrhoids without mention of complication [...] SPINE FUSN,POST INTERBODY 2011 Dr. Armando at [facility]. Diskectomy and laminectomy PAST SURGICAL HISTORY OF 03/07/1999 removal facial lesion PAST SURGICAL HISTORY OF 08/17/2014 excision soft tissue mass left index finger TONSILLECTOMY PRIMARY/SECONDARY <AGE 12 TRANSCATH RETRIEVAL,PERCUT 12/28/2006 ACTIVE PROBLEM LIST Esophageal Reflux Meralgia Paresthetica Other Voice and Resonance Disorders Arthropathy, Unspecified, Site Unspecified Elevated Liver Enzymes Cloth Spreader Current Use of Anticoagulant Therapy Hnp (Herniated [...] reports reviewed. Great deal of time spent jwks-uk-uwuv with the patient mostly in discussion Return in about 4 months (around 04/18/2024). documented in this encounterOur Lady Of [facility]10-24-[facility] History of Present illness Narrative* Jimbo Swanson APRN.CNS - 12/13/2023 4:22 PM EDT Coumadin 6 mg and 5 mg all other days and check INR in 2 weeks. * Melissa Means RN - 12/13/2023 1:17 PM EDT patient had inr completed at [facility] patients inr is 1.4 (patients inr [...] not agree with recommendation documented in this encounterOur Lady Of [facility]10-22-2024 Telephone encounter Note * Telephone Encounter - [...] Mann LPN December 11, 2023 3:42 PM [facility]-22-2024 Miscellaneous Notes* Telephone Encounter - Lynne Mann [...] 11, 2023 3:42 PM documented in this encounterOur Lady Of [facility]10-10-2024 History of Present illness Narrative* Jimbo Swanson APRN.CNS - 11/29/2023 3:00 PM EDT Coumadin 5 mg daily and check INR in 2 weeks * Melissa Means RN - 11/29/2023 12:35 PM EDT patient had inr completed at [facility] patients inr is 2.3 (patients inr [...] not agree with recommendation documented in this encounterOur Lady Of [facility]10-07-2024 Telephone encounter Note * Telephone Encounter - Jannet Aldana RN - 11/26/2023 2:38 PM EDT Patient cannot come in this week, she has been rescheduled to 12-17. Jannet Aldana RN [facility] Work Phone: 1(962) 946-972710-07-2024 Miscellaneous Notes* Telephone Encounter - Jannet Aldana [...] 11/26/2023 10:38 AM EDT Labs received from [facility] that will be scanned. They recommended a follow up with ID due toCRP 7.8 mg/dL and ESR 93 mm/hr. Patient is scheduled on 01-08-24. Should her appointment be scheduled sooner? Thank you, Jannet Aldana RN documented in this encounterOur Lady Of [facility]10-07-2024 Telephone encounter Note * Telephone Encounter - Jannet Aldana RN - 11/26/2023 1:07 PM EDT Voicemail left for patient to return call. Jannet Aldana RN [facility]-07-2024 Telephone encounter Note* Telephone Encounter - Geno [...] week around December 16 through December 20. [facility] Work Phone: [phone] Telephone encounter Note* Telephone Encounter - Jannet Aldana RN - 11/26/2023 10:38 AM EDT Labs received from [facility] that will be scanned. They recommended a follow up with ID due toCRP 7.8 mg/dL and ESR 93 mm/hr. Patient is scheduled on 01-08-24. Should her appointment be scheduled sooner? Thank you, Jannet Aldana RN [facility]-26-2024 Telephone encounter Note* Telephone Encounter - Jimbo Swanson APRN.CNS - 11/15/2023 4:53 PM EDT ok [facility]-26-2024 Miscellaneous Notes* Telephone Encounter - Jimbo Swanson [...] can not be approved. documented in this encounterOur Lady Of [facility]09-26-2024 Telephone encounter Note * Telephone Encounter - Melissa Means RN - 11/15/2023 12:26 PM EDT patients orders for coumadin clinic inr's has at this time. new order has been pended for approval if possible so that patient can continue to get inr's completed thru the coumadin clinic. coumadin clinic nurse only needs called if order can not be approved. [facility] History of Present illness Narrative* Melissa Means RN - 11/15/2023 12:24 PM EDT patient had inr completed at [facility] patients inr is 2.1 (patients inr [...] reading since dose change documented in this encounterOur Lady Of [facility]09-19-2024 History of Present illness Narrative* Melissa Means RN - 11/08/2023 4:20 PM EDT pcp agrees with information * Melissa Means RN - 11/08/2023 2:00 PM EDT patient had inr completed at [facility] patients inr is 2.8 (patients inr range is 1.7-2.2) patient is currently taking 7.5mg Tues,Thurs and 5mg all other days per PROCESS TRAINER Jv patients last dose change was on [...] not agree with recommendation documented in this encounterOur Lady Of [facility]09-16-2024 Telephone encounter Note * Telephone Encounter - Claudine Durán MD - 11/05/2023 4:53 PM EDT The following approved medication requests have been transmitted electronically. Requested Prescriptions Pending Prescriptions Disp Refills itraconazole (SPORANOX) 10 mg/mL solution 1200 mL 0 Sig: Take 20 mL by mouth two times a day. Claudine Durán MD [facility]-16-[facility]24 Miscellaneous Notes* Telephone Encounter - Claudine Durán [...] day. ALLERGIES Allergen Reactions Penicillins Hives (home) [phone] (cell) Last Office Visit Date: 10/11/2023 Last Distance Health Visit: Visit date not found Future Appointment: 02/29/2024 The patients preferred pharmacy has been captured for this encounter? yes Request is for script(s) to be escript to pharmacy. Yessica Pelayo LPN documented in this encounterOur Lady Of [facility]09-16-2024 Telephone encounter Note * Telephone Encounter - Yessica Pelayo LPN - 11/05/2023 11:28 AM EDT Patient MyChart message requesting the following refill Refill(s) Requested: Requested Prescriptions Pending Prescriptions Disp Refills itraconazole (SPORANOX) 10 mg/mL solution 1200 mL 0 Sig: Take 20 mL by mouth two times a day. ALLERGIES Allergen Reactions Penicillins Hives (home) [phone] (cell) Last Office Visit Date: 10/11/2023 Last Distance Health Visit: Visit date not found Future Appointment: 02/29/2024 The patients preferred pharmacy has been captured for this encounter? yes Request is for script(s) to be escript to pharmacy. Yessica Pelayo LPN [facility]-10-2024 Telephone encounter Note* Telephone Encounter - Ashley Rahman MA - 10/30/2023 2:51 PM EDT Forms were successfully faxed to [phone] to [facility]. Form placed in PSS basket for scanning. [facility]-10-[facility]24 Miscellaneous Notes* Telephone Encounter - Ashley Rahman MA - 10/30/2023 2:51 PM EDT Forms were successfully faxed to [phone] to [facility]. Form placed in PSS basket for scanning. documented in this encounterOur Lady Of [facility]09-06-2024 History of Present illness Narrative* Yesenia Weinstein LPN - 10/26/2023 3:59 PM EDT Patient was given coumadin instructions and verbalized understanding. * Jimbo Swanson APRN.CNS - 10/25/2023 3:30 PM EDT Recommend Coumadin 7.5 Sunday and and 5 mg all other days. Check INR in 2 weeks * Melissa Means RN - 10/25/2023 12:34 PM EDT patient had inr completed at [facility] patients inr is 1.3 (patients inr range [...] not agree with recommendation documented in this encounterOur Lady Of [facility]09-04-2024 Telephone encounter Note * Telephone Encounter - Claudine Durán MD - 10/24/2023 5:14 PM EDT The following approved medication requests have been transmitted electronically. Requested Prescriptions Signed Prescriptions Disp Refills warfarin (COUMADIN) 5 mg tablet 90 tablet 3 Sig: Take 1 tablet by mouth once daily. or as directed Authorizing Provider: CLAUDINE DURÁN MD [facility]-04-2024 Miscellaneous Notes* Telephone Encounter - Claudine Durán [...] you. Maritza Preston LPN. documented in this encounterOur Lady Of [facility]09-03-2024 Telephone encounter Note * Telephone Encounter - [...] Please advise. Thank you. Maritza Preston LPN. [facility]-30-[facility] History of Present illness Narrative* Melissa Means RN - 10/19/2023 3:22 PM EDT pcp agrees with information * Melissa Means, PAULA - 10/19/2023 11:54 AM EDT patient had inr completed at [facility] patients inr is 1.1 (patients inr [...] not agree with recommendation documented in this encounterOur Lady Of [facility]08-29-2024 Instructions* Patient Instructions* Bibi Alegria APRN.CNP - [...] your appointment with the valve team at [facility]. 5. Follow up with Dr. Messina in 3-4 months with echo prior documented in this encounterOur Lady Of [facility]cy [facility]08-29-2024 History of Present illness Narrative* Bibi Alegria APRN.SANTY - 10/18/2023 10:00 AM EDT Images from the original note were not included. [facility] Department of Cardiovascular Medicine SECTION OF CLINICAL CARDIOLOGY OUTPATIENT VISIT DATE October 18, 2023 OUTPATIENT VISIT TYPE ESTABLISHED PRIMARY CARE PHYSICIAN: Claudine Durán [address] [place] [address] CHIEF COMPLAINT: 1 month follow up HISTORY [...] who referred her to valve clinic at [facility]. She denies any chest pain, palpitations, sh ortness of breath, lightheadedness, dizziness, presyncope, syncope, orthopnea, or PND. Subjective PAST MEDICAL HISTORY No date: Anemia Comment: Bone marrow involvement with histoplasmosis No date: Bronchiectasis ([facility]) No date: COPD (chronic obstructive pulmonary disease) ([facility]) No date: Disseminated histoplasmosis Comment: Colitis, immunosuppression, 01/2018. No date: Diverticulosis of colon (without mention of hemorrhage) Comment: Diverticulosis 12/10/2014: DVT, recurrent, lower extremity, acute ([facility]) No date: Esophageal reflux 02/25/2018: Hiatal hernia No date: Hypertension No date: Lung nodule No date: Personal history of unspecified urinary disorder 03/07/2015: Rheumatoid arthritis involving multiple sites with positive rheumatoid factor ([facility]) Comment: Dr. Hurley ([facility]) No date: Unspecified hemorrhoids without mention [...] SPINE FUSN,POST INTERBODY Comment: Dr. Armando at [facility]. Diskectomy and laminectomy 03/07/1999: PAST SURGICAL HISTORY [...] fluticasone (FLONASE) 50 mcg/actuation nasal spray^Use 1 [place] in each nostril once daily.^Disp: 3 Each^Rfl: 3 vit A,C,C-Hvrc-Pwczgq (OCUVITE PRESERVISION) 2,148 mcg-113 mg-45 mg-17.4mg tab^Take [...] ECGS AVAILABLE Confirmed by MD KEESHA, MIRIAN ([id number]) on 03/29/2023 8:55:[address] Result [...] calcified granuloma middle mediastinum. Small hiatal hernia Manufacturing Worker: P[employer] Transcribe Date/Time: Sep 05 2023 12:56P [...] avoid significant preload depletion - Referred to [facility] for valve intervention by PCP - Will [...] has been referred for valve intervention at [facility] by her PCP and is scheduled to [...] Cardiology Nurse Practitioner Section of Regional Cardiology [facility] Dept of Cardiovascular Medicine [facility] [place] [address] [place] [address] Office Office This note was partially generated using [employer] [place] - 2 voice recognition system and may contain errors related to that system including grammar, punctuation, spelling, and words that may be inappropriate documented in this encounterOur Lady Of [facility]08-28-2024 History of Present illness Narrative* Ilda Miller RN - 10/17/2023 3:43 PM EDT CDM Telephonic Outreach Provider Action/FYI N/A Contacted for: Engagement Last questionnaire completed: 08/31/23 My Chart reminder letter sent 10/02/23 No response to date to My Chart questionnaire. Contact made with patient: No, left message. Ilda Miller RN October 17, 2023 3:48 PM documented in this encounterOur Lady Of [facility]08-22-2024 Instructions* Patient Instructions* Jimbo Swanson APRN.CNS - 10/11/2023 1:48 PM EDT Let us know right away if having any chest pain or feeling dizzy or like you could pass out or if you do pass out. Okay to use diclofenac gel on your knees. Try using acetaminophen hydrocodone as needed for pain of your knees. documented in this encounterOur Lady Of [facility]08-22-2024 History of Present illness Narrative* Jimbo Swanson APRN.CNS - 10/11/2023 1:03 PM EDT SUBJECTIVE: Depression Screening Never done Anxiety Screening Never done Advance Directive Discussion due on 02/19/2023 Covid-19 Vaccine() due on 03/01/2023 JEFFREY Bustamante is a 78 year old female. [...] bicuspid valve, lung nodule bronchiectasis and COPD. Orthodontist Vice President: Florence Collins MD, for follow-up of lung nodules bronchiectasis. Refrigeration Engineering Teacher: Jane Montoya MD [facility]. Not taking Humira or methotrexate due to histoplasmosis, expects treatment to be completed in December. She notes significant knee pain. Has been using ezeq-pzr-[id number] topical diclofenac. She was seen by Claudine Durán MD in May 2023 for follow-up appointment after discharge from [facility] after being in TCU after hospitalization. She [...] was referred for to orthopedic physician versus equipment maintenance superintendent for this at her earliest convenience. She was then seen by Twyla Cuevas 08/08/2023 for follow-up regarding flareup of rheumatoid arthritisand swelling of her lower legs. She was treated with prednisone tapering dose furosemide 20 mg daily x 5 days, then as needed. [facility]. She underwent [...] fluticasone (FLONASE) 50 mcg/actuation nasal spray^Use 1 [place] in each nostril once daily.^Disp: 3 Each^Rfl: [address] (PROTONIX) 40 mg tablet^Take 1 tablet by mouth once daily.^Disp: 90 tablet^Rfl: 3 vit A,C,G-Ahve-Sxuovv (OCUVITE PRESERVISION) 2,148 mcg-113 mg-45 mg-17.4mg tab^Take [...] marrow involvement with histoplasmosis No date: Bronchiectasis ([facility]) No date: COPD (chronic obstructive pulmonary disease) ([facility]) No date: Disseminated histoplasmosis Comment: Colitis, immunosuppression, 01/2018. No date: Diverticulosis of colon (without mention of hemorrhage) Comment: Diverticulosis 12/10/2014: DVT, recurrent, lower extremity, acute ([facility]) No date: Esophageal reflux 02/25/2018: Hiatal hernia No date: Hypertension No date: Lung nodule No date: Personal history of unspecified urinary disorder 03/07/2015: Rheumatoid arthritis involving multiple sites with positive rheumatoid factor ([facility]) Comment: Dr. Hurley ([facility]) No date: Unspecified hemorrhoids without mention [...] the prior CC echocardiographic exam performed on 09/22/2022([facility]). The mitral and aortic valve gradients [...] - CONSULT TO CARDIOLOGY - Dr Drew [facility] 4. Gastrointestinal hemorrhage, unspecified gastrointestinal hemorrhage type [...] Level: 4 - Moderate documented in this encounterOur Lady Of [facility]08-09-2024 Telephone encounter Note * Telephone Encounter - [...] Weinstein LPN September 28, 2023 10:21 AM [facility]08-09-2024 Miscellaneous Notes* Telephone Encounter - Yesenia Weinstein [...] 28, 2023 10:21 AM documented in this encounterOur Lady Of [facility]08-08-2024 History of Present illness Narrative* Melissa Means RN - 09/27/2023 3:36 PM EDT pcp agrees with information * Melissa Means RN - 09/27/2023 12:06 PM EDT patient had inr completed at [facility] patients inr is 1.3 (patients inr [...] recheck after restarting it documented in this encounterOur Lady Of [facility]08-05-2024 History of Present illness Narrative* Claudine Durán MD - 09/24/2023 8:11 AM EDT This note was created using NoteWriter. Subjective Haydee Bustamante is a 78 year old female. Patient presents with: Hospital F/U: [facility] ED/Hospital discharge 08/18/23 SUBJECTIVE: Haydee [...] marrow involvement with histoplasmosis No date: Bronchiectasis ([facility]) No date: COPD (chronic obstructive pulmonary disease) ([facility]) No date: Disseminated histoplasmosis Comment: Colitis, immunosuppression, 01/2018. No date: Diverticulosis of colon (without mention of hemorrhage) Comment: Diverticulosis 12/10/2014: DVT, recurrent, lower extremity, acute ([facility]) No date: Esophageal reflux 02/25/2018: Hiatal hernia No date: Hypertension No date: Lung nodule No date: Personal history of unspecified urinary disorder 03/07/2015: Rheumatoid arthritis involving multiple sites with positive rheumatoid factor ([facility]) Comment: Dr. Hurley ([facility]) No date: Unspecified hemorrhoids without mention [...] (FLONASE) 50 mcg/actuation nasal spray Use 1 [place] in each nostril once daily. pantoprazole DR (PROTONIX) 40 mg tablet Take 1 tablet by mouth once daily. vit A,C,X-Mgbg-Emuplt (OCUVITE PRESERVISION) 2,148 mcg-113 mg-45 mg-17.4mg tab [...] AM EDT This note was created using NoteWriter. Subjective Haydee Bustamante is a 78 year old female. Patient presents with: Hospital F/U: [facility] ED/Hospital discharge 08/18/23 SUBJECTIVE: Haydee [...] [facility] 03/07/2015 Dr. Hurley ([facility]) Unspecified hemorrhoids without mention of complication [...] (FLONASE) 50 mcg/actuation nasal spray Use 1 [place] in each nostril once daily. pantoprazole DR (PROTONIX) 40 mg tablet Take 1 tablet by mouth once daily. vit A,C,J-Ubzt-Jcjdbl (OCUVITE PRESERVISION) 2,148 mcg-113 mg-45 mg-17.4mg tab [...] sleep. Claudine Durán MD documented in this encounterOur Lady Of [facility]08-02-2024 History of Present illness Narrative* Twyla Cuevas APRN.CNP - 09/21/2023 2:36 PM EDT Noted and agree, thank you! * Melissa Means, PAULA - 09/21/2023 2:33 PM EDT patient had inr completed at [facility] patients inr is 2.4 (patients inr [...] not agree with recommendation documented in this encounterOur Lady Of [facility]07-17-2024 Telephone encounter Note * Telephone Encounter - Thi Zambrano OCCA - 09/05/2023 8:48 AM EDT TC to patient who is informed of providers message and is agreeable to starting spironolactone. CARMEN Viveros [facility]07-17-2024 Miscellaneous Notes* Telephone Encounter - Thi Zambrano [...] save her potassium. I sent this to [facility]. * Telephone Encounter - Maritza Pretson LPN - 09/04/2023 4:22 PM EDT Haydee [...] of breath, Patient had CBC done at [facility] yesterday. Patient does not have [...] taking her potassium pills. documented in this encounterOur Lady Of [facility]07-17-2024 Telephone encounter Note * Telephone Encounter - Twyla Cuevas APRN.CNP - 09/05/2023 7:18 AM EDT Okay, to help the swelling and the potassium I am going to send in spironolactone for her to start,it is a potassium sparing diuretic, it should help with the swelling but will also help save her potassium. I sent this to [facility]. [facility]-16-2024 Telephone encounter Note* Telephone Encounter - Maritza [...] of breath, Patient had CBC done at [facility] yesterday. Patient does not have letter for Handicapped Swathi written 08/22/2023, asking for another copy to be mailed to her. Put on nurse's counter for Dr. Durán to sign, addressed envelope ready. Maritza Preston LPN [facility]-16-2024 Telephone encounter Note* Telephone Encounter - Geni Cintron LPN - 09/04/2023 4:20 PM EDT Attempted to reach patient with no answer and unable to leave a message. [facility]24 Telephone encounter Note* Telephone Encounter - Twyla Cuevas APRN.CNP - 09/04/2023 4:05 PM EDT Lab testing shows kidney function stable, potassium is low. Please see how often she has been taking her lasix and how often she is currently taking her potassium pills. [facility] History of Present illness Narrative* Ilda Miller RN - 08/31/2023 12:15 PM EDT CDM Telephonic Outreach Provider Action/FYI N/A Contacted for: Engagement & SDOH screening for food insecurity and transportation -no needs identified Last questionnaire completed: 03/13/23 My Chart reminder letter sent 04/16/23, 08/07/23 Telephonic outreach: 07/05/23-left VM No response to date to My Chart questionnaire. Of note: Recent [facility] discharge 08/18/23 Contact made with patient: Yes Patient identified by name and date of . Discussed care with patient Outcomes: Patient forgot, reminder given Are you experiencing any new or worsening symptoms you need to talk about today? No Based on grades 9 12 tutor, the following disposition is advised: No symptoms or symptoms present, not severe. Routed to: No Action Needed PAN Education Provided this Outreach: No Upcoming appointments reviewed: Appointments for Next 60 Days Date Time Provider Location Dept Phone 09/20/2023 10:00 AM ANTICOAG [facility] [phone] 09/28/2023 10:30 AM [facility]ARD[facility] [phone] 10/11/2023 1:00 PM JIMBO SWANSON [facility] [phone] 10/18/2023 10:00 AM BIBI ALEGRIA [facility] [phone] Ilda Miller RN August 31, 2023 12:38 PM documented in this encounterOur Lady Of [facility]07-12-2024 Telephone encounter Note * Telephone Encounter - [...] Quintanilla LPN August 31, 2023 9:30 AM [facility]-12-2024 Miscellaneous Notes* Telephone Encounter - Danita Quintanilla [...] 31, 2023 9:30 AM documented in this encounterOur Lady Of [facility]cy [facility]07-11-2024 History of Present illness Narrative* Melissa Means RN - 08/30/2023 3:46 PM EDT pcp agrees with information * Melissa Means RN - 08/30/2023 1:13 PM EDT patient had inr completed at [facility] patients inr is 1.9 (patients inr [...] for follow up INR. documented in this encounterOur Lady Of [facility]cy [facility]07-11-2024 History of Present illness Narrative* Faviola Anthony [...] PATIENT PRESENTS WITH AN IMPLANTABLE OR ATTACHED HOME CONNECT LPN: No RADIOLOGY DEPARTMENT: CT; Exam(s) Completed: Chest PERIPHERAL IV DATA: Not applicable SIGNED BY: RT Maryann(R) August 30, 2023 3:28 PM documented in this encounterOur Lady Of Mercy [facility]07-09-[facility]24 History of Present illness Narrative* Geno Hart MD - 08/28/2023 9:00 AM EDT Patient presents with: Histoplasmosis : Disseminated due to immunocompromising meds HPI: 78-year-old woman with rheumatoid arthritis on Biologics, COPD and bronchiectasis, in the 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 Went into the hospital in March transferred to [facility] from [place] for what was felt to be massive hemoptysis which did not t rail turner to be that bad. She also [...] She at one point went back to [place] for some type of edema that caused open sores on her legs which got treated in the hospital and became better. Currently states no fevers or chills. The prior horrible cough she had at the [facility] after hospitalization is gone. She has no wasting, appetite loss severe shortness of breath, current hemoptysis. She has no problem with her bowels except 2 weeks ago had a rectal bleed ended up seeing a wood boring machine operator in [facility] and after 3 units of blood did well. She had a 6-day admission and Dr. Orellana wood boring machine operator did an EGD with duodenal bleeding [...] (FLONASE) 50 mcg/actuation nasal spray Use 1 [place] in each nostril once daily. [address] (PROTONIX) 40 mg tablet Take 1 tablet by mouth once daily. 90 tablet 3 vit A,C,Y-Sdqo-Dlzmre (OCUVITE PRESERVISION) 2,148 mcg-113 mg-45 mg-17.4mg tab [...] positive rheumatoid factor (HCC) 03/07/2015 Dr. Hurley ([facility]) Unspecified hemorrhoids without mention of complication [...] SPINE FUSN,POST INTERBODY 2012 Dr. Armando at [facility]. Diskectomy and laminectomy PAST SURGICAL [...] 4 months (around 12/29/2023). documented in this encounterOur Lady Of Mercy [facility]07-08-2024 Telephone encounter Note * Telephone Encounter - Ashley Rahman MA - 08/27/2023 9:59 AM EDT Please call Pt to schedule Limited Echo prior to next OV with Bibi Alegria. [facility]-08-[facility]24 Miscellaneous Notes* Telephone Encounter - Ashley Rahman MA - 08/27/2023 9:59 AM EDT Please call Pt to schedule Limited Echo prior to next OV with Bibi Alegria. documented in this encounterOur Lady Of Mercy Hospital - [facility]07-08-2024 NoteHNO ID: [id number] Author: WILLIAM MESSINA, DO Service: ? Author Type: Physician Type: Progress Notes Filed: 08/27/2023 14:47 Note Text: [facility] SECTION OF [facility] CARDIOLOGY [facility] OUTPATIENT VISIT DATE August 27, 2023 PRIMARY CARE PHYSICIAN: Claudine Durán [address] [place] [address] HISTORY OF PRESENT ILLNESS: Ms. Bustamante is [...] [facility]) 03/07/2015 Dr. Hurley ([facility]) Unspecified hemorrhoids without mention of complication Hemorrhoids PAST SURGICAL HISTORY Procedure Laterality Date COLONOSCOPY FLX DX W/COLLJ SPEC WHEN PFRMD 10/2003 Colonoscopy COLONOSCOPY FLX DX W/COLLJ SPEC WHEN PFRMD 05/18/2014 Colonoscopy COLONOSCOPY (more content not included)...[id number] History of Present illness Narrative* William Messina, - 08/27/2023 8:28 AM EDT Images from the original note were not included. [facility] SECTION OF [facility] CARDIOLOGY [facility] OUTPATIENT VISIT DATE August 27, 2023 PRIMARY CARE PHYSICIAN: Claudine Durán [address] [place] [address] HISTORY OF PRESENT ILLNESS: Ms. Bustamante is [...] [facility]) 03/07/2015 Dr. Hurley ([facility]) Unspecified hemorrhoids without mention of complication [...] SPINE FUSN,POST INTERBODY 2011 Dr. Armando at [facility]. Diskectomy and laminectomy PAST SURGICAL [...] (FLONASE) 50 mcg/actuation nasal spray Use 1 [place] in each nostril once daily. pantoprazole DR (PROTONIX) 40 mg tablet Take 1 tablet by mouth once daily. vit A,C,Q-Cqfc-Lrquii (OCUVITE PRESERVISION) 2,148 mcg-113 mg-45 mg-17.4mg tab [...] 7 days. William Messina DO, FACC, FACOI Manager [facility], [facility] Amb[facility]iology Manager [facility], [facility] Cardiac Rehabilitation Manager [facility], [facility] Cardiac Rehabilitation Manager [employer], [facility] Congestive Heart Failure Clinic Manager Flight, [facility] Ambulatory Cardiology Clinical Hybrid Corn Breeder Profressor of Medicine, [facility] Staff Choir Leader, [place] and Edilma Pierce Department of Cardiovascular Medicine/Heart and Vascular [place], [facility] Please note: This note has been produced using speech recognition software and may contain errors related to that system including madelyn, punctuation, spelling, words, gender and phrases that may be inappropriate. documented in this encounterOur Lady Of Mercy Hospital [facility]07-05-2024 Telephone encounter Note * Telephone Encounter - [...] Scheduled pt with Dr. Messina next week. [facility]07-05-2024 Miscellaneous Notes* Telephone Encounter - Gracy Atkins [...] since d/c from hospital. documented in this encounterOur Lady Of Mercy Hospital - [facility]07-05-2024 Telephone encounter Note * Telephone Encounter - Shirley Mccloud - 08/24/2023 3:53 PM EDT Pt called back and would like to speak to the nurses about her issues. [facility]-05-[facility]24 Telephone encounter Note* Telephone Encounter - Gracy [...] how pt wasdoing since d/c from hospital. [facility]07-03-[facility] History of Present illness Narrative* Melissa Means RN - 08/22/2023 4:20 PM EDT pcp agrees with information * Melissa Means RN - 08/22/2023 10:02 AM EDT patient had inr completed at [facility] patients inr is 1.1 (patients inr [...] not agree with recommendation documented in this encounterOur Lady Of Mercy [facility]07-03-2024 Instructions* Patient Instructions* Claudine Durán MD - [...] 1 to 2 weeks. documented in this encounterOur Lady Of Mercy Hospital - [facility]06-20-2024 History of Present illness Narrative* Jimbo Swanson APRN.MUSHROOM GROWTH MEDIA MIXER - 08/09/2023 11:42 AM EDT Continue with current Coumadin dose unchanged and check INR in 2 weeks * Melissa Means RN - 08/09/2023 10:19 AM EDT patient had inr completed at [facility] patients inr is 2.1 (patients inr [...] reading since dose change documented in this encounterOur Lady Of Mercy [facility]06-19-2024 History of Present illness Narrative* Twyla Cuevas APRN.AGENT BASED MODELER - 08/08/2023 2:37 PM EDT SUBJECTIVE Haydee [...] (FLONASE) 50 mcg/actuation nasal spray Use 1 [place] in each nostril once daily. vit A,C,V-Pihw-Kvmjjv (OCUVITE PRESERVISION) 2,148 mcg-113 mg-45 mg-17.4mg tab [...] Left Foot, Limited to Breakdown of Skin ([facility]) - 07/11/2022 Copd Without Exacerbation ([facility]) - 08/28/2019 Comment: Moderate obstruction 03/2019 and 08/2019 PFTs. Bronchiectasis Without Complication ([facility]) - 04/26/2019 Comment: Continue present management.PFTs as [...] Comment: Added automatically from request for surgery [id number] Ddd (Degenerative Disc Disease), Lumbar - 07/30/2017 Spondylolisthesis of Lumbar Region - 07/30/2017 History of Recurrent Deep Vein Thrombosis (Dvt) - 10/29/2016 Pain in Right Hip - 05/05/2016 Low Back Pain With Right-Sided Sciatica - 05/05/2016 Essential Hypertension - 03/07/2015 Rheumatoid Arthritis (Hcc) - 03/07/2015 Comment: Dr. Hurley ([facility]) Ganglion Cyst - 08/17/2014 Atrophic Vaginitis - 03/06/2013 Hnp (Herniated Nucleus Pulposus), Lumbar - 03/20/2011 Elevated Liver Enzymes - 04/01/2009 Mcfp Current Use of Anticoagulant Therapy - 04/01/2009 [...] appointment.. Twyla Cuevas APRN-SANTY documented in this encounterOur Lady Of Mercy [facility]06-18-2024 Telephone encounter Note * Telephone Encounter - [...] CARMEN Viveros August 07, 2023 8:47 AM [facility]06-18-2024 Miscellaneous Notes* Telephone Encounter - Thi Zambrano [...] 07, 2023 8:47 AM documented in this encounterOur Lady Of Mercy [facility]06-11-2024 Telephone encounter Note * Telephone Encounter - [...] LPN July 31, 2023 11:34 AM ] [facility]24 Miscellaneous Notes* Telephone Encounter - Lynne Mann [...] 2023 11:34 AM ] documented in this encounterOur Lady Of Mercy [facility]06-10-2024 Telephone encounter Note * Telephone Encounter - [...] Patel MA July 30, 2023 9:25 AM [facility]-10-2024 Miscellaneous Notes* Telephone Encounter - Danielle Patel [...] 30, 2023 9:25 AM documented in this encounterOur Lady Of Mercy Hospital [facility]06-06-2024 History of Present illness Narrative* Lauren Bowens APRN.CNP - 07/26/2023 3:21 PM EDT Agree with below recommendations. Lauren Bowens APRN.CNP * Melissa Means RN - 07/26/2023 11:06 AM EDT patient had inr completed at [facility] patients inr is 1.6 (patients inr [...] not agree with recommendation documented in this encounterOur Lady Of Mercy [facility]06-03-2024 Telephone encounter Note * Telephone Encounter - [...] in August and will discuss with him. [facility]-03-2024 Miscellaneous Notes* Telephone Encounter - Yesenia Weinstein [...] advise, Lulu Quigley RN documented in this encounterOur Lady Of Mercy Hospital [facility]06-01-2024 Telephone encounter Note * Telephone Encounter - [...] a day. Authorizing Provider: CLAUDINE DURÁN MD [facility]05-31-2024 Telephone encounter Note* Telephone Encounter - Lulu [...] Please review and advise, Lulu Quigley RN [facility]05-29-2024 Telephone encounter Note* Telephone Encounter - Claudnie Durán MD - 07/18/2023 1:17 PM EDT The following approved medication requests have been transmitted electronically. Requested Prescriptions Pending Prescriptions Disp Refills itraconazole (SPORANOX) 10 mg/mL solution 1200 mL 0 Sig: Take 20 mL by mouth two times a day. Claudine Durán MD [facility]05-29-2024 Miscellaneous Notes* Telephone Encounter - Claudine Durán [...] you. Danielle Patel MA. documented in this encounterOur Lady Of Mercy [facility]05-28-2024 Telephone encounter Note * Telephone Encounter - [...] Please advise. Thank you. Danielle Patel MA. [facility]-24-2024 Telephone encounter Note* Telephone Encounter - Jimbo Swanson APRN.CNS - 07/13/2023 12:00 PM EDT OK please schedule with ortho [facility]05-24-2024 Miscellaneous Notes* Telephone Encounter - Jimbo Swanson APRN.CNS - 07/13/2023 12:00 PM EDT OK please schedule with ortho * Telephone Encounter - Diana Evans LPN - 07/13/2023 9:17 AM EDT Patient aware of results and provider recommended follow up. Patient would like to see an orthopedic Provider here in [place] at the [facility]. Aware may need to be scheduled with [...] her knee. Would recommend seeing orthopedist or equipment maintenance superintendent for this at her earliest convenience, check to see if prednisone is helping. Left message. documented in this encounterOur Lady Of Mercy [facility]05-24-2024 Telephone encounter Note * Telephone Encounter - Diana Evans LPN - 07/13/2023 9:17 AM EDT Patient aware of results and provider recommended follow up. Patient would like to see an orthopedic Provider here in [place] at the [facility]. Aware may need to be scheduled with a PA instead of a Dr and verbalizes understanding. If a consult or referral needed, please call patient after consult ordered, to assist in schedulingappointment. Patient is on 3rd day of Prednisone today. States had a better day yesterday than in a long time and accomplished a lot.. No pain and less edema. Diana Evans LPN [facility]05-23-2024 Telephone encounter Note* Telephone Encounter - Yesenia Weinstein LPN - 07/12/2023 3:44 PM EDT No answer. Left message for patient to call office and ask to speak to a nurse regarding Ultrasoundresults [facility]05-23-2024 Telephone encounter Note* Telephone Encounter - Jimbo Swanson APRN.CNS - 07/12/2023 3:14 PM EDT No thrombophlebitis or DVT. Does have fluid collection at her knee. Would recommend seeing orthopedist or equipment maintenance superintendent for this at her earliest convenience, check to see if prednisone is helping. Left message. [facility] History of Present illness Narrative* Jimbo Swanson APRN.CNS - 07/12/2023 3:08 PM EDT Continue Coumadin dose unchanged and check INR in 2 weeks * Melissa Means RN - 07/12/2023 10:12 AM EDT patient had inr completed at [facility] patients inr is 1.8 (patients inr [...] reading since dose change documented in this encounterOur Lady Of [facility]05-21-2024 History of Present illness Narrative* Jimbo Swanson, CONNIE.MUSHROOM GROWTH MEDIA MIXER - 07/10/2023 1:53 PM EDT SUBJECTIVE: RSV [...] bicuspid valve, lung nodule bronchiectasis and COPD. Orthodontist Vice President: Florence Collins MD, for follow-up of lung nodules bronchiectasis. Noted are a likely etiology for underlying bronchiectasis. Choir Leader: William GOTTI, aortic stenosis. Refrigeration Engineering Teacher: [facility]. Reports currently not taking Humira or methotrexate due to histoplasmosis. Infectious disease Dr. Hart, August appointment. She was seen by his PCP in May 2023 for [facility]. She was [...] fluticasone (FLONASE) 50 mcg/actuation nasal spray^Use 1 [place] in each nostril once daily.^Disp: 3 Each^Rfl: 3 vit A,C,G-Ypbl-Jaebxf (OCUVITE PRESERVISION) 2,148 mcg-113 mg-45 mg-17.4mg tab^Take [...] [facility]) 03/07/2015 Dr. Hurley ([facility]) Unspecified hemorrhoids without mention of complication [...] Level: 4 - Moderate documented in this encounterOur Lady Of [facility]cy [facility]05-16-2024 History of Present illness Narrative* Melissa Means RN - 07/05/2023 4:27 PM EDT PATIENT NOTIFIED OF INFORMATION * Jimbo Swanson APRN.CNS - 07/05/2023 2:21 PM EDT Agree hold Coumadin today and then take 5 mg daily starting tomorrow and check INR in 1 week * Melissa Means RN - 07/05/2023 1:48 PM EDT patient had inr completed at [facility] patients inr is 3.5 (patients inr range is 1.7-2.2) patient is currently taking 5mg Mon,Wed and 7.5mg all other days patients last dose change unknown as this is the dose she was told at [facility] discharge patient has had no changes in medication and no missed doses and no change in diet recommend: patient hold dose today and then go to 5mg daily and recheck in 1 week patient has been scheduled for a 1 week follow up inr on 07/12/23 please review and advise on recommendation documented in this encounterOur Lady Of [facility]cy [facility]05-16-2024 History of Present illness Narrative* Ilda Miller RN - 07/05/2023 4:00 PM EDT [facility] Telephonic Outreach Provider Candelaria/SHAYNE N/A Contacted for: Engagement Last questionnaire completed: 03/13/23 My Chart reminder letter sent 04/16/23 No response to date to My Chart questionnaire. Contact made with patient: No, left message. Ilda Miller RN July 05, 2023 4:04 PM documented in this encounterOur Lady Of [facility]05-13-2024 Telephone encounter Note * Telephone Encounter - [...] 10/11/2023 Please advise. Thank you. CARMEN Viveros. [facility]-13-2024 Miscellaneous Notes* Telephone Encounter - Thi Zambrano [...] Thank you. CARMEN Viveros. documented in this encounterOur Lady Of Mercy [facility]05-13-2024 Telephone encounter Note * Telephone Encounter - [...] Please advise. Thank you. Danielle Patel MA. [facility]-13-2024 Miscellaneous Notes* Telephone Encounter - Danielle Patel [...] you. Danielle Patel MA. documented in this encounterOur Lady Of Mercy [facility]04-23-2024 Telephone encounter Note * Telephone Encounter - Brittany Cedillo LPN - 06/12/2023 2:59 PM EDT Pt has not reviewed the my chart message. Message left to her home number to either review the my chart message or call back to spoke to a nurse. [facility]24 Miscellaneous Notes* Telephone Encounter - Brittany Cedillo [...] Thank you. Dionne Nunez. documented in this encounterOur Lady Of Mercy [facility]04-19-2024 Telephone encounter Note * Telephone Encounter - Brittany Cedillo LPN - 06/08/2023 10:05 AM EDT Pt notified via my chart. [facility]24 Telephone encounter Note* Telephone Encounter - Claudine [...] two times a day. Claudine Durán MD [facility]04-18-2024 Telephone encounter Note* Telephone Encounter - Maritza [...] advise. Thank you. Maritza Preston LPN. Yes [facility]04-18-2024 Telephone encounter Note* Telephone Encounter - Dionne [...] found Please advise. Thank you. Dionne Nunez. [facility]-16-2024 Instructions* Patient Instructions* Claudine Durán MD - 06/05/2023 3:50 PM EDT Consider seeing Dr. Orellana's GI partner for follow up on elevated liver enzymes. documented in this encounterOur Lady Of Mercy [facility]04-16-2024 History of Present illness Narrative* Claudine Durán MD - 06/05/2023 3:28 PM EDT This note was created using bigtincanriter. Subjective Haydee Bustamante is a 78 year old female. Patient presents with: Discharge Skilled Rehab: Discharged from [facility] SUBJECTIVE: Haydee Bustamante is a 78 year old year old lady here today for follow up appointment for review of medical conditions after in [facility] after being in TCU after hospitalization. Did well with PT/OT ST at TCU at [facility] noted for swallowing--no problems with [...] [facility] 03/07/2015 Dr. Hurley ([facility]) Unspecified hemorrhoids without mention of complication [...] (FLONASE) 50 mcg/actuation nasal spray Use 1 [place] in each nostril once daily. albuterol HFA (PROAIR HFA) 90 mcg/actuation inhaler Inhale 2 Puffs as instructed every 4 hours as needed. vit A,C,K-Bvvu-Lgfhmq (OCUVITE PRESERVISION) 2,148 mcg-113 mg-45 mg-17.4mg tab [...] the date of the service which included [id number] patient care, completing clinical documentation, obtaining and/or reviewing separately obtained history, performing a medically appropriate examination, counseling and educating the patient/family/caregiver, ordering medications, tests, or procedures, independently interpreting results (not separately reported), and communicating results to the patient/family/caregiver. Claudine Durán MD documented in this encounterOur Lady Of [facility]cy [facility]03-11-2024 Miscellaneous Notes* Telephone Encounter - Brittany Cedillo LPN - 04/30/2023 11:09 AM EDT Rec'd rec'd from [facility] pt to be d/c from [facility] to [facility] private pay for therapy documented in this encounterOur Lady Of Mercy [facility]03-08-2024 Discharge summary Author Edinson Irvin [facility] April 27, 2023 1:24pm Note Date/Time April 27, 2023 1:24 pm [facility] Medical Records Department [address] [place] [address] Transfer to [facility] MR#: [id number] Acct: [id number] Name: HAYDEE BUSTAMANTE Rep #:[id number] : 1945 77 From: Edinson Irvin MD PCP: Dr. Claudine Durán MD Status:AD M IN Certification of patient admission REQUIRED AT TIME OF ADMISSION. I CERTIFY THAT POST-HOSPITAL F SERVICES ARE REQUIRED TO BE GIVEN ON AN IN-PATIENT BASIS BECAUSE OF THE ABOVE NAMED PATIENT'S NEED FOR HALFWAY CARE ON A CONTINUING BASIS FOR THE CONDITION(S) FOR WHICH HE/SHE WAS RECEIVINGIN-PATIENT HOSPITAL SERVICES PRIOR TO HIS/HER TRANSFER TO THE [facility]. 04/27/23 1324<Electronically signed by Edinson Irvin [...] Additional Instructions / Restrictions: Discharge 04/30/2023 to [facility], private pay, part B therapies. Discharge [...] Qty: 0 0RF fluticasone propionate 50 mcg/actuation [place],Suspension 1 spray NASAL DAILY Qty: 0 0RF [...] applicable): CC: Dr. Claudine Durán MD ~ [facility] Work Phone: 1(665) 651-553903-08-2024 Discharge summary Author Edinson Irvin [facility] April 27, 2023 1:23pm Note Date/Time April 27, 2023 1:17 pm [facility] Medical Records Department [address] [place], [place] [address] [place] [address] Discharge Summary 04/27/23 1316 MR#: [id number] Acct: [id number] Name: HAYDEE BUSTAMANTE Rep #:[id number] : 1945 77 From: Edinson Irvin MD PCP: Dr. Claudine Durán MD Status:AD IN [facility] Prov[facility] Date of Admission: 04/05/23 Primary Care Physician: Dr. Claudine Durán MD Consultations 04/10/23 10:44 Consult: Onc/Wound/eligibility clerk Routine Comment: Reason for Consult:: bilateral lowers [...] 1 tab PO DAILY supplement 03/19/23 vitamins A,C,D-fdgj-irybwl 2,148 mcg-113 mg-45 mg-17.4 mg tablet (PreserVision [...] DVT right lower extremity. Discharge 04/30/2023 to [facility], private pay, part B therapies. Physical Exam [...] Uncontrolled pain Additional Instructions: Discharge 04/30/2023 to [facility], [employer], private pay, part B therapies. Meaningful Use Info Meaningful Use Diagnoses (Choose all that apply): None applicable Discharge Plan Admission Admit Date/Time: 04/05/23 13:33 Primary Reason for Your Visit: Debility. Attending Provider: Edinson Irvin Chi Primary Care Provider: Claudine Durán Instructions Additional Instructions / Restrictions: Discharge 04/30/2023 to [facility], [employer], private pay, part B therapies. Discharge Orders/Prescriptions [...] Qty: 0 0RF fluticasone propionate 50 mcg/actuation [place],Suspension 1 spray NASAL DAILY Qty: 0 0RF [...] before D/C Order can be placed): NonSkilled MI/Intermed [facility] 04/27/23 1323 <Electronically signed by Edinson Irvin MD> Cosigner Signature (if applicable): CC: Dr. Claudine Durán MD; Dr. Edinson Irvin MD~ Signed [facility] Work Phone: 1(328) 202-861102-21-2024 History and physical note Author [facility] April 11, 2023 11:37am Note Date/Time April 05, 2023 8:06pm [facility] Medical Records Department [address] [place] [address] History & Physical Exam 04/05/231955 MR#: [id number] Acct: [id number] Name: HAYDEE BUSTAMANTE Rep #:[id number] : 1945 77 From: Edinson Irvin MD PCP: Dr. Claudine Durán MD Status:AD M IN Location: [facility] TCU03-1 HPI - General General Date of Admission: 04/05/23 Date of Service: 04/05/23 Chief Complaint: Here for rehabilitation. HPI Narrative 03/31/2023 HAYDEE BUSTAMANTE, is a 77 Female who presents to [facility] ED with edema. FTT, bilateral lower extremity edema, right lower extremity redness. Unable to care for self at home, fell, could not get up. On floor for hours. Worsening right leg pain. WBC 19.4, Hemoglobin 8.3, INR 1.3, K 3.2, BNP okay, CK okay. Chest X-ray negative, X-ray right tibia/fibula negative. Clindamycin IV for right lower extremity cellulitis. 03/31/2023 Admit to [facility]. Levaquin, Doppler right lower extremity [...] rehabiliation, strengthening, prior to discharge home alone. [facility] Medical History (Updated 04/05/23 @ 20:05 by [...] Q24H 03/19/23 [History Last Taken Unknown] vitamins A,C,B-dizv-cmgijz 2,148 mcg-113 mg-45 mg-17.4 mg tablet (PreserVision [...] MD; Dr. Edinson Irvin MD ~* [facility] Work Phone: 1(913) 627-735202-19-2024 Procedure [facility] 04-06-2023 Progress note Author Amparo Marina [facility] April 06, 2023 3:02pm Note Date/Time April 06, 2023 2:39pm [facility] Medical Records Department [address] [place] [address] Progress Note - Pharmacy 04/06/23 1438 MR#: [id number] Acct: [id number] Name: HAYDEE BUSTAMANTE Rep #:[id number] : 1945 77 From: Amparo Marina PCP: Dr. Claudine Durán MD Status:AD M IN Location: [place] [address] Documented by User: Amparo Marina 04/06/23 15:02 [...] 04/06/23 10:00 04/06/23 08:50 Fluticasone 0.05% 1 [place] Nasal.Sry NASAL 1 spray DAILY MARGARETTE Administration [...] 08:49 Multivitamins,Therapeutic Tablet PO 1 tablet DAILYCM [facility] Administration Multivitamins/Minerals 2 cap 04/05/23 17:00 04/06/23 08:48 Multivitamin (Healthy Eyes) Capsule PO 2 cap BIDCM [facility] Administration Oxycodone HCl 5 mg 04/05/23 14:09 Oxycodone 5 Mg Tablet PO Q4H PRN PRN Pain Score 4-10 Pantoprazole Sodium 40 mg 04/05/23 22:00 04/06/23 08:49 Pantoprazole Sodium 40 Mg Tablet PO 40 mg BID MARGARETTE Administration Potassium Chloride 20 meq 04/07/23 08:00 Potassium Chloride Oral Tablet 20 Meq PO DAILYCM [facility] Senna/Docusate Sodium 1 tablet 04/05/23 22:00 04/06/23 [...] by Edinson Irvin MD> CC: ~ [facility] Work Phone: 1(611) 214-906902-15-2024 Consult note Author Alcides Abel [facility] April 05, 2023 10:22am Note Date/Time April 04, 2023 4:12pm [facility] Cancer Care [address] [place] [address] Consultation - Oncology IP 04/04/23 1610 MR#: [id number] Acct: [id number] Name: HAYDEE BUSTAMANTE Rep #:[id number] : 1945 77 From: Alcides tavares MD PCP: Dr. Claudine Durán MD Status:AD M IN Location: [place] [address] Assessment & Plan Assessment/Plan (1) Thrombocytopenia: Status: Acute Code(s): D69.6 - Thrombocytopenia, unspecified Plan: Acute moderately severe onset is in March 2023 no active bleeding and no evidence for recent thrombosis no recent use of heparin. She has a remote history of venous thromboembolic disease and was on Coumadin until recent hospitalization at [facility] in early March 2023. Has had multiple [...] prophylaxis.. 4. Patient's is an established at [facility] and therefore I advised continued follow-up there. Impression and plan discussed with the patient and her friend. Impression and plan discussed with hospitalist. Alcides Abel MD Signal Manager, [facility] Divisions of Medical Oncology & Hematology Department of Internal Medicine [place] [address] This note was generated using a voice [...] an acute thrombocytopenia (see lab section for help desk representative platelet counts) with no active bleeding or thrombosis. The patient has multiple chronic medical problems and multiple hospitalizations between [facility] and [facility] and is presenting with failure to thrive [...] early March 2023 she was seen at [facility] and transferred to [facility] with suspected bowel perforation and was treated conservatively with antimicrobials. On the current admission she was receiving Cipro and Flagyl in addition to itraconazole s that was started around February 2023. In her last admission to [facility] in March 2023 Coumadin was held, because not clear and patient as far as she can tell did not receive any heparin injections . Advanced Directives Power of Dopeman: Yes Living Will: Yes [facility] Medical History (Updated 04/05/23 @ 10:09 by [...] Q24H 03/19/23 [History Last Taken Unknown] vitamins A,C,Q-lviu-vopvgc 2,148 mcg-113 mg-45 mg-17.4 mg tablet (PreserVision [...] (Auto) 76.5 H, Lymph % (Auto) 9.4L, [place] % (Auto) 8.3, Eos % (Auto) 4.9, [...] L Plt Count Absolute Neuts (auto) 5.2 02/04/04/23 04/04/23 06:42 06:42 06:42 WBC Hgb 10.0 [...] MD; Dr. Jorgito Agarwal DO ~ [facility] Work Phone: 1(177) 712-163402-14-2024 Progress note Author Jasmyn Chan [facility] April 04, 2023 6:11pm Note Date/Time April 04, 2023 6:11pm [facility] Medical Records Department [address] [place] [address] Progress Note - Hospitalist 04/04/231806 MR#: [id number] Acct: [id number] Name: HAYDEE BUSTAMANTE Rep #:[id number] : 1945 77 From: Jasmyn Chan DO PCP: Dr. Claudine Durán MD Status:AD M IN Location: [place] [address] Reason for Visit Reason for Visit: Diagnoses [...] (Auto) 76.5 H, Lymph % (Auto) 9.4L, [place] % (Auto) 8.3, Eos % (Auto) 4.9, Baso % (Auto) 0.2, Absolute Neuts (auto)4.7, Absolute Lymphs (auto) 0.58 L, Nucleated RBC % 0, Diff Path Review May sundeep, Platelet Estimate MKD DEC, Anisocytosis 2+ 04/04/23 16:19: WBC 5.3, RBC 3.42 L, Hgb 9.7 L, Hct 29.5 L, MCV 86.3, MCH 28.4, MCHC 32.9, RDW Std Deviation 70.8 H, RDW Coeff of Catarino 23.1 H, Plt Count 41 L*, MPV 10.2, Immature Gran % (Auto) 0.600, Neut % (Auto) 73.8 H, Lymph % (Auto) 11.4 L, Desoto % (Auto) 9.8, Eos % (Auto) 4.2, [...] 25 minutes Charges/Coding Visit Charges Inpatient E&M: 39928 Subs Hosp L1 04/04/23 2858 <Electronically signed by Jasmyn Chan DO> Cosigner Signature (if applicable): CC: ~ [facility] Work Phone: 1(379) 878-513102-13-2024 Progress note Author Mathew Orellana [facility] April 03, 2023 5:53pm Note Date/Time April 03, 2023 5:53pm [facility] Medical Records Department [address] [place] [address] Progress Note - GI 04/03/23 1750 MR#: [id number] Acct: [id number] Name: HAYDEE BUSTAMANTE Rep #:[id number] : 1945 77 From: Mathew Orellana DO PCP: Dr. 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 Charges/Coding Visit Charges Inpatient E&M: 60579 [facility] Hosp L3 04/03/23 7876 <Electronically signed by Mathew Friend DO> Cosigner Signature (if applicable): CC: ~ [facility]igned [facility] Work Phone: 1(452) 882-981802-13-2024 Progress note Author Jasmyn Chan [facility] April 03, 2023 5:36pm Note Date/Time April 03, 2023 5:36pm [facility] Medical Records Department [address] [place] [address] Progress Note - Hospitalist 04/03/23 1730 MR#: [id number] Acct: [id number] Name: HAYDEE BUSTAMANTE Rep #:[id number] : 1945 77 From: Jasmyn Chan DO PCP: Dr. Claudine Durán MD Status:AD M IN Location: [place] [address]- Reason for Visit Reason for Visit: Diagnoses [...] Protocol: Document 04/01/23 12:03 (Rec: 04/01/23 12:03 [id number]) Nutrition Malnutrition Evidence of Malnutrition Exists Yes [...] (Auto) 82.5 H, Lymph % (Auto) 6.5L, [place] % (Auto) 7.5, Eos % (Auto) 2.7, [...] we will need pre-CERT from her insurance [employer] for this. #6 histoplasmosis-patient is currently on itraconazole #7 thrombocytopenia-oncology will be seeing the patient in consultation Total clinical time spent by myself addressing the patient's medical issues, reviewing all of her data, and collaborating with patient's care team: 25 minutes Charges/Coding Visit Charges Inpatient E&M: 67680 Subs Hosp L1 04/03/23 5776 <Electronically signed by Jasmyn Chan DO> Cosigner Signature (if applicable): CC: ~ [facility] Work Phone: 1(590) 696-121802-12-2024 Progress note Author Jasmyn Chan [facility] April 02, 2023 8:07pm Note Date/Time April 02, 2023 8:07pm [facility] Medical Records Department [address] [place] [address] Progress Note - Hospitalist 04/02/232000 MR#: [id number] Acct: [id number] Name: HAYDEE BUSTAMANTE Rep #:[id number] : 1945 77 From: Jasmyn Chan DO PCP: Dr. Claudine Durán MD Status:AD M IN Location: [place] [address] Reason for Visit Reason for Visit: Diagnoses [...] Protocol: Document 04/01/23 12:03 (Rec: 04/01/23 12:03 [id number]) Nutrition Malnutrition Evidence of Malnutrition Exists Yes [...] (Auto) 86.6 H, Lymph % (Auto) 6.4L, [place] % (Auto) 5.4, Eos % (Auto) 0.6, [...] acute debility-patient may need placement in a [facility] facility for short-term rehab services. #6 histoplasmosis-patient is currently on itraconazole Total clinical time spent by myself addressing the patient's medical issues, reviewing all of her data, and collaborating with patient's care team: 25 minutes Charges/Coding Visit Charges Inpatient E&M: 71622 Subs Hosp L1 04/02/232006 <Electronically signed by Jasmyn Chan DO> Cosigner Signature (if applicable): CC: ~ [facility]igned [facility] Work Phone: 1(228) 451-694102-12-2024 Miscellaneous Notes* Telephone Encounter - Claudine Durán MD - 04/02/2023 7:52 PM EST Noted regarding fall. * Telephone Encounter - Doretha Miller RN - 04/02/2023 9:44 AM EST Friend answered pt's phone, and after informed this is a nurse in pcp office, friend reported pt was admitted into [facility] PCU after a fall on Sat. Friend does not think there was an injury from fall. Friend reports patient was in [facility] for 1 week, and has been in and out of ER several times since discharge. Advised we would f/u with pt once discharged from [facility]. * Telephone Encounter - Claudine Durán MD - 04/01/2023 4:51 PM EST Noted Patient had recent labs done during admission (was at [facility] and discharged 03/25) Noted alk phos [...] 02/27/2023 1:48 PM EST Faxed received from [facility] stating that the liver enzymes are worse. Please review copy of labs and advise. [facility] Consult note Author Mathew Orellana [facility] April 02, 2023 5:06pm Note Date/Time April 02, 2023 5:00pm [facility] Medical Records Department [address] [place] [address] Consultation - GI 04/01/23 1658 MR#: [id number] Acct: [id number] Name: HAYDEE BUSTAMANTE Rep #:[id number] : 1945 77 From: Mathew Orellana DO PCP: Dr. Claudine Durán MD Status:AD M IN Location: [place] [id number] HPI Consult Data Date of Consult: 04/01/23 HPI Narrative Reason for Consultation: Anemia HPI Narrative: HAYDEE BUSTAMANTE, is a 77-year-old female history of COPD, Severe . GERD. DVT and PEon Coumadin, histoplasmosis of the lung, RA who [facility]23 with bilateral lower extremity edema. She was seen here 03/28/2023 with lower extremity edema. She was initially seen here 03/26/2023 for shortness of breath and inability to care for herself at home after a recent hospital stay at [facility] from which she was discharged on Cipro [...] her because her hemoglobin decreased to 6.5. [facility] Medical History (Updated 04/02/23 @ 17:05 by [...] Q24H 03/19/23 [History Last Taken Unknown] vitamins A,C,L-pvlb-vaslbr 2,148 mcg-113 mg-45 mg-17.4 mg tablet (PreserVision [...] Protocol: Document 04/01/23 12:03 (Rec: 04/01/23 12:03 [id number]) Nutrition Malnutrition Evidence of Malnutrition Exists Yes [...] (Auto) 86.6 H, Lymph % (Auto) 6.4L, [place] % (Auto) 5.4, Eos % (Auto) 0.6, [...] PE),Recent diagnosis Histoplasmosis, recent 03/21/33 evaluation at [facility] with transfer to [facility] secondary to concerns for complex bowel [...] of 3 Charges/Coding Visit Charges Inpatient E&M: 59649 Init Hosp L3 04/02/23 1706 <Electronically signed by Mathew Friend > Cosigner Signature (if applicable): CC: Dr. Alisa Mathew MD; Dr. Claudine Durán MD; Dr. Laine Veras MD~ [facility]igned [facility] Work Phone: 1(457) 579-590002-12-2024 Procedure [facility] 04-02-2023 Procedure [facility]02-11-2024 Miscellaneous Notes* Telephone Encounter - Claudine Durán MD - 04/01/2023 4:36 PM EST See MyChart reply documented [facility] Progress note Author [facility] April 01, 2023 12:08pm Note Date/Time April 01, 2023 6:46am [facility] Medical Records Department [address] [place] [address] Progress Note - Hospitalist 04/01/23 0642 MR#: [id number] Acct: [id number] Name: HAYDEE BUSTAMANTE Rep #:[id number] : 1945 77 From: Alisa Mathew MD PCP: Dr. Claudine Durán MD Status:AD M IN Location: [place] [id number]- 1 Reason for Visit Reason for Visit: [...] 90.8 H, Lymph % (Auto) 3.0 L, [place] % (Auto) 5.0, Eos % (Auto) 0.1, [...] 88.5 H, Lymph % (Auto) 4.7 L, [place] % (Auto) 5.6, Eos % (Auto) 0.2, [...] 19:29 EST Reading Location ID and State: [facility] / [place] Tel , Service support , Ankle X-Ray [...] PE),Recent diagnosis Histoplasmosis, recent 03/21/33 evaluation at [facility] with transfer to [facility] secondary to concerns for complex bowel [...] therapy with planned outpatient work-up, discharged from [facility] 03/25/23 with decline upon return to home, inability to safely care for self prompting presentation to the [facility] ED on 03/26/23 for SNF placement needs but improved and declined SNF placement again who now re-presents to the [facility] ED on 03/31/23 with history [...] daily and encouraged continued follow-up with Dr. aHrt in 3 months #10. Recent Suspected Bowel Performation/Colitis: Treated with course ciprofloxacin and Flagyl regimen, follow-up as previously arranged per Surgery team [facility]. #11. Rheumatoid arthritis: Patient outpatient on Humira, methotrexate and leucovorin however this has been continued to be held secondary to a recent hospitalization in [facility] with disseminated histoplasmosis and concern for bowel perforation/colitis, resume once allowed per infectious disease. #12. Valvular heart disease with aortic stenosis with recent diagnosis moderatepericardial effusion: Recent evaluation in [facility], no intervention but close observation for moderate [...] Code status. Charges/Coding Visit Charges Inpatient E&M: 28348 Subs Hosp L3 04/01/23 1208 <Electronically signed by Alisa Mathew MD> Cosigner Signature (if applicable): CC: ~ [facility]igned [facility] Work Phone: 1(254) 380-439002-10-2024 History and physical note Author Laine Veras [facility] March 31, 2023 8:59pm Note Date/Time March 31, 2023 8:20pm [facility] Medical Records Department [address] [place] [address] H&P Exam - Hospitalist 03/31/232011 MR#: [id number] Acct: [id number] Name: HAYDEE BUSTAMANTE Rep #:[id number] : 1945 77 From: Laine Veras MD PCP: Dr. Claudine Durán MD Status:AD M IN Location: [facility] [id number]- 1 HPI - General General Date of Admission: 03/31/23 Date of Service: 03/31/23 Chief Complaint: BLE edema and weeping HPI Narrative HAYDEE BUSTAMANTE, is a 77-year-old female history of COPD, Severe . GERD. DVT and PEon Coumadin, histoplasmosis of the lung, RA who presented to [facility] ED 03/31/2023 with bilateral lower extremity edema. She was seen here 03/28/2023 with lower extremity edema. She was initially seen here 03/26/2023 for shortness of breath and inability to care for herself at home after a recent hospital stay at [facility] from which she was discharged on Cipro [...] is unsure if she's taking her coumadin [facility] Medical History (Updated 03/31/23 @ 20:42 by [...] Q24H 03/19/23 [History Last Taken Unknown] vitamins A,C,Q-xsap-nghpio 2,148 mcg-113 mg-45 mg-17.4 mg tablet (PreserVision [...] 90.8 H, Lymph % (Auto) 3.0 L, [place] % (Auto) 5.0, Eos % (Auto) 0.1, [...] for bowel perf treated conservatively -Treated at [facility] -s/p cipro and flagyl, no present abd complaints # Disseminated histoplasmosis -Continue itraconazole twice daily -Patient to follow-up with a Dr. Hart in 3 months # Recent COVID-19 -Tested positive here end of February -No resp complaints #Hx COPD -Continue inhalers #Hx and mod pericardial effusion -Seen at [facility] and pt advised to f/u outpt [...] documentation, 78Minutes Charges/Coding Visit Charges Inpatient E&M: 17668 Init Hosp L3 03/31/232058 <Electronically signed by Laine Veras MD> Cosigner Signature (if applicable): CC: Dr. Claudine Durán MD; Dr. Laine Veras MD~ [facility]igned [facility] Work Phone: 1(182) 164-651102-10-2024 Discharge summary Author Martín Cornejo [facility] March 31, 2023 8:00pm Note Date/Time March 31, 2023 5:48pm [facility] Medical Records Department [address] [place] [address] Emergency Department Summary 03/31/23 MR#: [id number] Acct: [id number] Name: HAYDEE BUSTAMANTE Rep #:[id number] : 1945 77 From: Martín Cornejo DO PCP: Dr. Claudine Durán MD Status:RE G ER Location: ED HPI <MEENU Leger - Last Filed: 03/31/23 19:55> History of Present Illness Chief Complaint: Edema Narrative Narrative: Patient is a 77-year-old female with a long history of lower leg edema, history of COPD, patient is on Coumadin, histoplasmosis, [facility], worsening swelling [...] to go to a facility for rehab. [facility] <MEENU Leger - Last Filed: 03/31/23 19:55> [facility] Medical History Colitis COPD (chronic obstructive pulmonary [...] Q24H 03/19/23 [History Last Taken Unknown] vitamins A,C,G-asrp-tkfvua 2,148 mcg-113 mg-45 mg-17.4 mg tablet (PreserVision [...] <MEENU Leger - Last Filed: 03/31/23 19:55> [facility] Lab Data Labs: Laboratory Results - last 24 hr 03/31/23 18:12 WBC 19.4 H RBC 2.87 L Hgb 8.3 L Hct 24.9 L MCV 86.8 MCH 28.9 MCHC 33.3 RDW Std Deviation 75.1 H RDW Coeff of Catarino 24.1 H Plt Count 95 L MPV 10.4 Immature Gran % (Auto) 1.000 H Neut % (Auto) 90.8 H Lymph % (Auto) 3.0 L Desoto % (Auto) 5.0 Eos % (Auto) 0.1 [...] Cornejo, DO - Last Filed: 03/31/23 20:00> [facility] Narrative Medical decision making narrative: [...] hospitalist. This patient was seen with a PA/PROCESS TRAINER Individually assessed they patient including history and physical. I have reviewed everything on the chart that is availableand agree with the documentation provided by the PA/PROCESS TRAINER including discussion about the assessment, treatment plan, [...] 90.8 H Lymph % (Auto) 3.0 L Desoto % (Auto) 5.0 Eos % (Auto) 0.1 [...] to thrive Disposition Disposition: Acute Care Hospital [facility] What to do if you have Problems For any increased pain, shortness of breath, bleeding, nausea or vomiting, chestpain, or any unexpected problems, contact your Primary Care Provider. Call [facility] ([phone]) or report to the closest Emergency Room. Call 911 if necessary. 03/31/231999 <Electronically signed by Martín Cornejo DO> Cosigner Signature (if applicable): 03/31/231954 <Electronically signed by Frederick CORRIGAN> CC: Dr. Claudine Durán MD ~ [facility]igned [facility] Work Phone: 1(933) 242-672602-10-2024 Discharge summary Author [facility] March 31, 2023 8:00pm Note Date/Time March 31, 2023 5:48pm [facility] Medical Records Department [address] [place] [address] Emergency Department Summary 03/31/23 MR#: [id number] Acct: [id number] Name: HAYDEE BUSTAMANTE Rep #:[id number] : 1945 77 From: Martín Cornejo DO PCP: Dr. Claudine Durán MD Status:RE G ER Location: ED HPI <MEENU Leger - Last Filed: 03/31/23 19:55> History of Present Illness Chief Complaint: Edema Narrative Narrative: Patient is a 77-year-old female with a long history of lower leg edema, history of COPD, patient is on Coumadin, histoplasmosis, presenting to [facility] for failure to thrive, worsening [...] to go to a facility for rehab. [facility] <MEENU Leger - Last Filed: 03/31/23 19:55> [facility] Medical History Colitis COPD (chronic obstructive pulmonary [...] Q24H 03/19/23 [History Last Taken Unknown] vitamins A,C,D-iplz-iyglhn 2,148 mcg-113 mg-45 mg-17.4 mg tablet (PreserVision [...] General Appearance ED: well developed <Dr. Martín Cornejo, DO - Last Filed: 03/31/23 20:00> Physical Exam Const Vital Signs: 03/31/23 16:48 03/31/23 17:01 Temperature 98.3 F Temperature Source Oral Pulse Rate 86 Respiratory Rate 17 Respiratory Pattern Normal Blood Pressure 105/46 L Blood Pressure Mean 65 Pulse Ox 100 [facility] <MEENU Leger - Last Filed: 03/31/23 19:55> [facility] Lab Data Labs: Laboratory Results - last 24 hr 03/31/23 18:12 WBC 19.4 H RBC 2.87 L Hgb 8.3 L Hct 24.9 L MCV 86.8 MCH 28.9 MCHC 33.3 RDW Std Deviation 75.1 H RDW Coeff of Catarino 24.1 H Plt Count 95 L MPV 10.4 Immature Gran % (Auto) 1.000 H Neut % (Auto) 90.8 H Lymph % (Auto) 3.0 L Des[place] % (Auto) 5.0 Eos % (Auto) 0.1 [...] Cornejo, DO - Last Filed: 03/31/23 20:00> [facility] Narrative Medical decision making narrative: [...] hospitalist. This patient was seen with a PA/PROCESS TRAINER Individually assessed they patient including history and physical. I have reviewed everything on the chart that is availableand agree with the documentation provided by the PA/PROCESS TRAINER including discussion about the assessment, treatment plan, [...] 90.8 H Lymph % (Auto) 3.0 L [place] % (Auto) 5.0 Eos % (Auto) 0.1 [...] failure to thrive [facility] What to do if you have Problems For any increased pain, shortness of breath, bleeding, nausea or vomiting, chestpain, or any unexpected problems, contact your Primary Care Provider. Call [facility] ([phone]) or report to the closest Emergency Room. Call 911 if necessary. 03/31/231999 <Electronically signed by Martín Cornejo DO> Cosigner Signature (if applicable): 03/31/231954 <Electronically signed by Frederick CORRIGAN> CC: Dr. Claudine uDrán MD ~ [facility]igned [facility] Work Phone: 1(841) 863-858502-07-2024 Discharge summary Author Etienne Thacker [facility] March 28, 2023 8:37pm Note Date/Time March 28, 2023 5 :11pm [facility] Medical Records Department [address] [place] [address] Emergency Department Summary 03/28/23 MR#: [id number] Acct: [id number] Name: HAYDEE BUSTAMANTE Rep #:[id number] : 1945 77 From: Etienne Thacker MD [...] similar symptoms: Yes Recent Illness/Hospitalization: Yes PFSH [facility] Medical History Colitis COPD (chronic obstructive pulmonary [...] Q24H 03/19/23 [History Last Taken Unknown] vitamins A,C,Q-uigq-nfqipt 2,148 mcg-113 mg-45 mg-17.4 mg tablet (PreserVision [...] with[facility] primary care [facility]. Her labs are [...] 80.2 H Lymph % (Auto) 7.4 L [place] % (Auto) 9.8 Eos % (Auto) 0.0 [...] rhythm rate 81 no acute signs of MS or ischemia. No significant dysrhythmia. Discharge Plan [...] problems, contact your Primary Care Provider. Call [facility] ([phone]) or report to the closest Emergency Room. Call 911 if necessary. 03/28/232036 <Electronically signed by Etienne Thacker MD> Cosigner Signature (if applicable): CC: Dr. Claudine Durán MD ~ [facility]igned [facility] Work Phone: 1(277) 784-637202-05-2024 Discharge summary Author Martínyayo [facility] March 26, 2023 4:23pm Note Date/Time March 26, 2023 1 :02pm [facility] Medical Records Department [address] [place] [address] Emergency Department Summary 03/26/23 MR#: [id number] Acct: [id number] Name: HAYDEE BUSTAMANTE Rep #:[id number] : 1945 77 From: Martín Cornejo DO PCP: Dr. Claudine Durán MD Status:AD [facility] Location: [place] [address] HPI History of Present Illness Chief Complaint: Shortness of Breath Narrative Narrative: 77-year-old female presenting with shortness of breath. She needs placement. She is unable to care for self at home. [facility] due to concern for bowel perforation [...] So they can discharge her home from [facility]. Patient may need a TAVR in the future. She may need mitral valve repair.. Her creatinine was elevated while she was at [facility]. She was discharged home on Cipro and Flagyl. She will continue itraconazole twice daily. She is given Imodium for diarrhea. He has 4 more days of dexamethasone. She was to hold her HCTZ/irbesartan [facility] Medical History (Updated 03/26/23 @ [...] Q24H 03/19/23 [History Last Taken Unknown] vitamins A,C,P-kksc-lbrlwx 2,148 mcg-113 mg-45 mg-17.4 mg tablet (PreserVision [...] 80.3 H Lymph % (Auto) 6.3 L [place] % (Auto) 9.6 Eos % (Auto) 0.0 [...] your Primary Care Provider. Call [facility] ([phone]) or report to the closest Emergency Room. Call 911 if necessary. 03/26/233 <Electronically signed by Martín Cornejo DO> Cosigner Signature (if applicable): CC: Dr. Claudine Durán MD ~ [facility] Work Phone: 1(886) 460-542202-04-2024 NoteHNO ID: [id number] Author: ARMEN FERNANDEZ RN Service: Nursing Author Type: Registered Nurse Type: Nursing Progress Note Filed: 03/25/2023 08:58 Note Text: Sepsis alert, sound paged, vitals stable, pt stable, waitng for call-back from sound.[facility]02-03-2024 NoteHNO ID: [id number] Author: SHARAN RIVAS MD Service: Hospital Medicine [...] (SPORANOX) 200 mg ORAL BID phenol 1 [place] (CHLORASEPTIC) 1 [place] MUCOUS MEMBRANE (TOPICAL MOUTH AND THROAT) q [...] was found to be COVID-19 positive in [place]. Imaging showed intraperitoneal air and pneumatosis intestinalis and patient was transferred to [facility]. Pulmonology was consulted and patient was started on remdesivir and Decadron for COVID-19. Also started on itraconazole, Cipro and Flagyl. Surgery was involved with no surgical plans. # Pneumatosis intestinalis and pneumoper (more content not included)...[facility]02-03-2024 NoteHNO ID: [id number] Author: MAGAN VILLAFUERTE DO Service: Pulmonary Disease [...] of disseminated histoplasmosis. She is followed in [place], [place]. She has a history of [...] She presented to the emergency room at [place] after a vigorous coughing episode and coughing [...] (SPORANOX) 200 mg ORAL BID phenol 1 [place] (CHLORASEPTIC) 1 [place] MUCOUS MEMBRANE (TOPICAL MOUTH AND THROAT) q [...] 2 months. Thank you documented in this encounterOur [facility]24 NoteHNO ID: [id number] Author: AMERICA RODRIGUEZ, RN Service: Care Management Author Type: Registered Nurse Type: Care Mgt Progress Note Filed: 03/23/2023 14:44 Note Text: CARE MANAGEMENT PROGRESS NOTE SERVICE DATE: 03/23/2023 SERVICE TIME: 12:22 PM LOS: 4 days Post-Acute Discharge Planning Patient Goal(s): Be able to go home, General wellness [place] Explained: [place] Given: No Reason Not Given: [...] 23, 2023 TIME: 2:37 PM PAGER/CONTACT #: [phone]23 NoteHNO ID: [id number] Author: MAGAN VILLAFUERTE DO Service: Pulmonary Disease [...] of disseminated histoplasmosis. She is followed in [place], [place]. She has a history of [...] She presented to the emergency room at [place] after a vigorous coughing episode and coughing [...] QuantiFERON gamma test negative CT abdomen and pelvis Mild fatty infiltration of the liver. Pneumatosis [...] content not included)...[facility]02-02-2024 NoteHNO ID: [id number] Author: SHARAN RIVAS MD Service: Hospital Medicine [...] (SPORANOX) 200 mg ORAL BID phenol 1 [place] (CHLORASEPTIC) 1 [place] MUCOUS MEMBRANE (TOPICAL MOUTH AND THROAT) q [...] content not included)...[facility]02-01-2024 NoteHNO ID: [id number] Author: GENO HART MD Service: Infectious Disease [...] home -Patient can call my office at [phone] to get an appointment for about 3 [...] for recurrent lower extremity DVT, presented to [facility] 03/19/2023 for hemoptysis, going to the [place] ED but then sent here due to [...] of the last outpatient ID note in 2020. Appropriately started itraconazole and although the patient [...] be COVID-positive. Interestingly a CAT scan at [place] found pneumatosis intestinalis and intraperitoneal free air comp (more content not included)...[facility]02-01-2024 NoteHNO ID: [id number] Author: MAGAN VILLAFUERTE DO Service: Pulmonary Disease [...] of disseminated histoplasmosis. She is followed in [place], [place]. She has a history of [...] She presented to the emergency room at [place] after a vigorous coughing episode and coughing [...] Positive PCR for COVID-19 supposedly reported from [facility]. Chest and abdomen/pelvis reviewed CTA chest 03/19/2023 No pulmonary embolism Prominent reticular no (more content not included)...[facility]02-01-2024 NoteHNO ID: [id number] Author: YAN PEREZ DO Service: General Surgery [...] 03/22/2023 1:52 PM][facility]02-01-2024 NoteHNO ID: [id number] Author: JOSE LUIS CRISTOBAL DO Service: General [...] if on RNF.[facility]02-01-2024 NoteHNO ID: [id number] Author: SHARAN RIVAS MD Service: Hospital Medicine [...] (SPORANOX) 200 mg ORAL BID phenol 1 [place] (CHLORASEPTIC) 1 [place] MUCOUS MEMBRANE (TOPICAL MOUTH AND THROAT) q 2 H PRN enoxaparin 40 mg injection (LOVENOX) 40 mg SUBCUTANEOUS q 24 HR iv contrast (radiology procedure) INTRAVENOUS DIRECTED PRN And enteric contrast (radiology procedure) ORAL DIRECTED PRN DATA: Diagnostic tests reviewed for today's visit: CBC, Coags, BMP, Mg, Phos Recent Labs 03/22/2332403/21/23 0632 03/21/23 0425 03/20/23 1110 03/20/23 0416 [...] Function, Amylase, AND Lipase Recent Labs 03/22/23 03203/21/23 0632 03/20/23 1110 03/19/23 1921 TPROT 4.9* [...] content not included)...[facility]02-01-2024 NoteHNO ID: [id number] Author: PAMELA HALL MD Service: General Surgery Author Type: Physician Type: Progress Notes Filed: 04/25/2023 15:56 Note Text: Emergency General Surgery Progress Note SERVICE DATE: March 22, 2023 Emergency General Surgery Service Pager: For questions or concerns Mon-Sun 6a-5p please page [phone]. After 5pm and on Weekends and Holidays, please page [phone] if in ICU or [phone] if on RNF. SUBJECTIVE: Patient denies worsening [...] Air IANDO: Date 03/21/23 07 - 03/22/23 0603/22/23 07 - 03/23/23 0659 Shift 7536-4135 9623-3834 1624-5014 24 Hour Total 4768-3971 1431-9562 2469-4798 24 Hour Total INTAKE IV 300 300 [...] ORAL DIRECTED PRN remdesivir in NaCl 0.9% Vial-Mate/ADD-Meridian 100 mg 275 mL 100 mg INTRAVENOUS [...] (SPORANOX) 200 mg ORAL TID phenol 1 [place] (CHLORASEPTIC) 1 [place] MUCOUS MEMBRANE (TOPICAL MOUTH AND THROAT) q [...] arthritis (HCC) 03/07/2015 Overview Note: Dr. Hurley ([facility]) Assessment: 77 year old female with [...] not included)...[facility] 03-21-2023 NoteHNO ID: [id number] Author: GENO HART MD Service: Infectious Disease [...] for recurrent lower extremity DVT, presented to [facility] 03/19/2023 for hemoptysis, going to the [place] ED but then sent here due to [...] be COVID-positive. Interestingly a CAT scan at [place] found pneumatosis intestinalis and intraperitoneal free air [...] -- 03/21/23 1000 remdesivir in NaCl 0.9% Vial-Mate/ADD-Meridian 100 mg 275 mL 100 mg, INTRAVENOUS, EVERY 24 HOURS See Amada for full Linked Orders Report. 03/23/23 0959 03/20/23 1300 itraconazole 200 mg oral liquid (SPORANOX) 200 mg, ORAL, 3 TIMES DAILY 03/23/23 1259 03/19/23 2000 cipro (more content not included)...[facility] 03-21-2023 NoteHNO ID: [id number] Author: PAMELA HALL MD Service: General Surgery Author Type: Physician Type: Progress Notes Filed: 03/22/2023 07:10 Note Text: Emergency General Surgery Progress Note SERVICE DATE: March 21, 2023 Emergency General Surgery Service Pager: For questions or concerns Mon-Fri 6a-5p please page [phone]. After 5pm and on Weekends and Holidays, please page [phone] if in ICU or [phone] if on RNF. SUBJECTIVE: NAEON. AF and [...] 0659 03/21/23 07 - 03/22/23 0659 Shift 6929-0739 4961-0486 8498-4814 24 Hour Total 6438-2279 7300-1651 0428-1344 24 Hour Total INTAKE IV 1275 1275 [...] Dose Route Frequency remdesivir in NaCl 0.9% Vial-Mate/ADD-Meridian 100 mg 275 mL 100 mg INTRAVENOUS [...] (SPORANOX) 200 mg ORAL TID phenol 1 [place] (CHLORASEPTIC) 1 [place] MUCOUS MEMBRANE (TOPICAL MOUTH AND THROAT) q [...] arthritis (HCC) 03/07/2015 Overview Note: Dr. Hurley ([facility]) Assessment: 77 year old female with PMH significant for RA (Humira), HTN, h/o disseminated Histoplasmosis, bronchiectasis, VTE (on coumadin), pulmonary nodules, and presenting to the ED today after an episode of hemoptysis at home. CTAP had an incidental finding of a small amount of intraperitoneal air and pneumatosis in the colon. INR on arrival to [place] was 9. She given Vitamin K and transferred here. Hospital Course/Operations/Procedures: * No surgery found * Plan: Pneumatosis intestinalis and intraperitoneal free air - labs and imaging reviewed - Small amount of air on (more content not included)...[facility]01-31-2024 NoteHNO ID: [id number] Author: MAGAN VILLAFUERTE DO Service: Pulmonary Disease [...] of disseminated histoplasmosis. She is followed in [place], [place]. She has a history of [...] She presented to the emergency room at [place] after a vigorous coughing episode and coughing [...] Positive PCR for COVID-19 supposedly reported from [facility]. Chest and abdomen/pelvis reviewed CTA chest [...] content not included)...[facility]01-30-2024 NoteHNO ID: [id number] Author: ELÍAS QUINN, PAULA Service: Care Management Author Type: Registered Nurse Type: Care Mgt Initial Assessment Filed: 03/20/2023 16:23 Note Text: CARE MANAGEMENT: ASSESSMENT AND DISCHARGE PLAN SERVICE DATE: March 20, 2023 SERVICE TIME: 4:19 PM PCP: Claudine Durán MD Primary Contact: Extended Emergency Contact Information Primary Emergency Contact: Suzie Gerardo ([place]ph[place]) Address: [facility] [address] [place] [id number] [facility] Relation: Friend Secondary Emergency Contact: Padmini Chang Address: [address] [place] [address] [facility] Mobile Relation: Friend Admission Status: Inpatient Insurance Provider: [employer] MED[employer]ARE PPO Discharge Planning requested by: Per Department Practice Potential Transition Plans Home Advance Directives Current Advance Directive: None Cupola Operator Attempted to Assist with AD Completion: Yes [...] wellness, Less pain, Wean off of O2 [place] Explained: [place] Choice Given: No Reason Not Given: [...] 20, 2023 TIME: 4:19 PM CONTACT #: [phone]01-30-2024 Note HNO ID: [id number] Author: MAGAN VILLAFUERTE DO Service: Pulmonary Disease [...] of disseminated histoplasmosis. She is followed in [place], [place]. She has a history of [...] She presented to the emergency room at [place] after a vigorous coughing episode and coughing [...] Positive PCR for COVID-19 supposedly reported from [facility]. Chest and abdomen/pelvis reviewed CTA chest [...] content not included)...[facility]01-30-2024 NoteHNO ID: [id number] Author: PAMELA HALL MD Service: General Surgery [...] 07 - 03/20/23 0659 03/20/23 07 - 01/31/24 0659 Shift 1172-8533 1882-7762 8329-3218 24 Hour Total 7267-4186 6620-7181 4263-3125 24 Hour Total INTAKE IV 300 100 [...] q 4 H PRN Labs: Recent Labs 03/20/236 03/19/23 1921 NA 128* 128* K 3.9 [...] in the colon. INR on arrival to [place] was 9. She given Vitamin K and [...] chemical anticoagulation - INR on arrival to [place] was 9. She given Vitamin K prior to transfer - continue serial abdominal exams - notify general surgery of any acute changes in clinical status D/w Dr. Hall SIGNATURE: Christ Camarena MD PATIENT NAME: Haydee Bustamante DATE: March 20, 2023 TIME: 921 Pager: [phone] Emergency General Surgery Service Pager: For questions or concerns Mon-Fri 6a-5p please page [phone]. After 5pm and on Weekends and Holidays, please page [phone] if in ICU or [phone] if on RNF. Emergency General Surgery (EGS) Staff Addendum: See admit H/P for full attestation following today's patient care visit. I evaluated the patient and personally participated in the jim components. I agree with the resident's findi (more content not included)...[facility]01-29-2024 Discharge summary Author Bob [facility] March 19, 2023 5:11pm Note Date/Time March 19, 2023 1 0:38am [facility] Medical Records Department [address] [place] [address] Emergency Department Summary 03/19/23 MR#: [id number] Acct: [id number] Name: HAYDEE BUSTAMANTE Rep #:[id number] : 1945 77 From: Bob Amaro PCP: [...] states she has a history of histoplasmosis. [facility] Medical History (Updated 03/19/23 @ [...] (Auto) 68.8 Lymph % (Auto) 15.1 L [place] % (Auto) 10.9 H Eos % (Auto) [...] (38), Including time spent:, Discussing w/Patient &/or Family/Gallery Intern, Discussing w/Consultants, Arranging Admission or Transfer and [...] Disposition Disposition: Acute Care Hospital Discharge Location: [facility] What to do if you have Problems For any increased pain, shortness of breath, bleeding, nausea or vomiting, chestpain, or any unexpected problems, contact your Primary Care Provider. Call [facility] ([phone]) or report to the closest Emergency Room. Call 911 if necessary. 03/19/23 1711 <Electronically signed by Bob Elias DO> Cosigner Signature (if applicable): CC: Dr. Claudine Durán MD ~ [facility] Work Phone: 1(487) 573-443012-20-2023 History of Present illness Narrative* Kathleen Alegria [...] 07, 2023 11:06 AM documented in this encounterOur [facility]12-[facility] History of Present illness Narrative* Adri Zaragoza APRN.AGENT BASED MODELER - 02/07/2023 10:52 AM EST Subjective HPI [...] positive rheumatoid factor (HCC) 03/07/2015 Dr. Hurley ([facility]) Unspecified hemorrhoids without mention of complication [...] SPINE FUSN,POST INTERBODY 2011 Dr. Armando at [facility]. Diskectomy and laminectomy PAST SURGICAL [...] fluticasone (FLONASE) 50 mcg/actuation nasal spray^Use 1 [place] in each nostril once daily.^Disp: 3 Each^Rfl: [address] (PROTONIX) 40 mg tablet^Take 1 tablet by mouth once daily.^Disp: 90 tablet^Rfl: 3 albuterol HFA (PROAIR HFA) 90 mcg/actuation inhaler^Inhale 2 Puffs as instructed every 4 hours as needed.^Disp: 1 Each^Rfl: 2 vit A,C,U-Reon-Pltdcd (OCUVITE PRESERVISION) 2,148 mcg-113 mg-45 mg-17.4mg tab^Take [...] A/B & RSV NAAT, ROUTINE Adri Zaragoza APRN.AGENT BASED MODELER documented in this encounterOur Lady Of [facility]12-15-2023 History of Present illness Narrative* Melissa Means RN - 02/02/2023 3:19 PM EST pcp agrees with information * Melissa Means RN - 02/02/2023 9:47 AM EST patient had inr completed at [facility] patients inr is 2.1 (patients inr [...] for follow up INR. documented in this encounterOur Lady Of [facility]12-06-2023 Miscellaneous Notes* Telephone Encounter - Magalie Ngo LPN - 01/24/2023 9:02 AM EST GEREMIAS 07/20/22 Patient phones requesting refills as follows: Requested Prescriptions Pending Prescriptions Disp Refills budesonide-formoterol (SYMBICORT) 160-4.5 mcg/actuation inhaler [Pharmacy Med Name: BUDESONIDE/FORMINHALER 10.2GM 160/4.5MCG] 30.6 g 3 Sig: USE 2 INHALATIONS TWICE A DAY INSTRUCTED Please review and advise. Magalie Ngo LPN documented in this encounterOur Lady Of [facility]11-29-2023 History of Present illness Narrative* Melissa Means RN - 01/17/2023 3:02 PM EST pcp agrees with information * Melissa Means RN - 01/17/2023 1:55 PM EST patient had inr completed at [facility] patients inr is 1.9 (patients inr [...] reading since dose change documented in this encounterOur Lady Of [facility]11-22-2023 History of Present illness Narrative* Melissa Means RN - 01/10/2023 3:47 PM EST pcp agrees with information PATIENT NOTIFIED OF INFORMATION * Melissa Means RN - 01/10/2023 1:38 PM EST patient had inr completed at [facility] patients inr is [...] and advise on recommendation documented in this encounterOur Lady Of [facility]11-16-2023 History of Present illness Narrative* Yesenia Weinstein LPN - 01/04/2023 4:24 PM EST Patient notified of providers message and verbalized understanding. * Jimbo Swanson APRN.CNS - 01/04/2023 3:29 PM EST OK to change coumadin to 7.5mg Tues,Sat,Sun and 5mg all other days and recheck INR in 1 week * Melissa Means RN - 01/04/2023 11:34 AM EST patient had inr completed at [facility] patients inr is 2.6 (patients inr [...] and advise on recommendation documented in this encounterOur Lady Of [facility]11-16-2023 Instructions* Patient Instructions* Jimbo Swanson APRN.CNS - 01/04/2023 10:50 AM EST It appears that you have better coverage for the RSV vaccine at your local pharmacy. documented in [place] encounterJac[place] [address]-16-2023 History of Present illness Narrative* Jimbo Swanson SEAM SEWER.MUSHROOM GROWTH MEDIA MIXER - 01/04/2023 10:49 AM EST SUBJECTIVE: RSV [...] and COPD. HPI excerpted from previous visits: Orthodontist Vice President: Florence Collins MD, last seen July 20, 2022. Seen for follow-up of lung nodules bronchiectasis. Noted are a likely etiology for underlying bronchiectasis. Noted new nodularity of lung,likely represents inflammatory nodules. Will need follow-up CT. No this may improve with bronchopulmonary hygiene. Spiriva and intermittent albuterol has helped with cough. Stable. Choir Leader: William Messina BAV, aortic stenosis , last seen in cardiology August 29, 2022 by SANTY Love. Continued on current treatments unchanged. Follow-up echo advised, not yet scheduled.. Refrigeration Engineering Teacher: [facility]. Continues with methotrexate, Humira.seen by [...] Occasional bruising. [facility] coumadin clinic. Referred by equipment maintenance superintendent to see orthopedic physician for her hip. [...] fluticasone (FLONASE) 50 mcg/actuation nasal spray^Use 1 [place] in each nostril once daily.^Disp: 3 Each^Rfl: [address] (PROTONIX) 40 mg tablet^Take 1 tablet by mouth once daily.^Disp: 90 tablet^Rfl: 3 albuterol HFA (PROAIR HFA) 90 mcg/actuation inhaler^Inhale 2 Puffs as instructed every 4 hours as needed.^Disp: 1 Each^Rfl: 2 vit A,C,X-Esqk-Xvospf (OCUVITE PRESERVISION) 2,148 mcg-113 mg-45 mg-17.4mg tab^Take [...] positive rheumatoid factor (HCC) 03/07/2015 Dr. Hurley ([facility]) Unspecified hemorrhoids without mention of complication [...] to get at pharmacy discussed risks - [employer] COVID-19 VACCINE ( SEASON) AGE 12+ YR in office today Jimbo Swanson APRN.CNS Medical Decision Making: Problems: Low: 2+ self-limited or minor problems Risk: Moderate: Drug management Medical Decision Making Level: 3 - Low documented in this encounterOur Lady Of [facility]11-01-2023 Miscellaneous Notes* Telephone Encounter - Maritza Preston [...] you. Maritza Preston LPN. documented in this encounterOur Lady Of [facility]10-26-2023 History of Present illness Narrative* Jimbo Swanson APRN.CNS - 12/14/2022 12:11 PM EDT Continue with Coumadin dose unchanged and check INR in 2 or 3 weeks * Melissa Means RN - 12/14/2022 10:25 AM EDT patient had inr completed at [facility] patients inr is 2.2 (patients inr [...] patient declines blood draw documented in this encounterOur Lady Of [facility]10-19-2023 History of Present illness Narrative* Yesenia Weinstein [...] AM EDT patient had inr completed at [facility] patients inr is 2.5 (patients inr range is 1.7-2.2) patient is currently taking 5mg Mon,Wed and 7.5mg all other days patients last dose change was on 10/12/22 due to a low level of 1.5 (dose at that time was 7.5mg ,Th,Sun and 5mg all other days) patient has had no changes in medication and no missed doses and no change in diet Recommend: patient change coumadin dose to 5mg Mon,Wed,Fri and 7.5mg all other days and recheck inrin 1 week patient has been scheduled for a 1 week follow up inr on 12/14/22 please review and advise on recommendation documented in this encounterOur Lady Of [facility]10-02-2023 Miscellaneous Notes* Letter - Coordinator, José - 11/20/2022 9:52 AM EDT November 20, 2022 PID: [id number] Haydee Bustamante [address] [place] [address] Dear Ms. Bustamante, We are pleased to [...] report will be kept on file at [facility] as part of your permanent medical record and are available for your continuing care. Thank you for allowing us to help in meeting your health care needs. Sincerely, Dr. Basurto Interpreting Radiologist [facility] (Normal over 40) documented in this encounterOur Lady Of Mercy [facility]09-29-2023 History of Present illness Narrative* Aide Gupta [...] 17, 2022 9:00 AM documented in this encounterOur Lady Of Mer[facility]09-29-2023 Miscellaneous Notes* Result Encounter Note - Jimbo Swanson APRN.CNS - 11/17/2022 9:30 AM EDT Negative, 1 year screening follow-up documented in this encounterOur Lady Of Mer[facility]09-21-2023 History of Present illness Narrative* Jimbo Swanson APRN.CNS - 11/09/2022 4:41 PM EDT Continue Coumadin dose unchanged and check INR in 4 weeks * Melissa Means RN - 11/09/2022 10:27 AM EDT patient had inr completed at [facility] patients inr is 1.9 (patients inr [...] follow u p INR. documented in this encounterOur Lady Of [facility]09-21-2023 Miscellaneous Notes* Telephone Encounter - Melissa Means RN - 11/09/2022 10:29 AM EDT patients orders for coumadin clinic inr's has at this time. new order has been pended for approval if possible so that patient can continue to get inr's completed thru the coumadin clinic. coumadin clinic nurse only needs called if order can not be approved. documented in this encounterOur Lady Of Mer[facility]09-21-2023 History of Present illness Narrative* Ron Veras MD - 11/09/2022 8:50 AM EDT Ron Veras MD Department of Orthopaedics Orthopaedics [address] [place] [id number] Dept: [phone] Dept November 09, 2022 CHIEF COMPLAINT: New [...] acute pathology. 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 Manufacturing Worker: KRYSTAL Transcribe Date/Time: Dec 31 2021 11:55A [...] [facility]) 03/07/2015 Dr. Hurley ([facility]) Unspecified hemorrhoids without mention of complication [...] SPINE FUSN,POST INTERBODY 2012 Dr. Armando at [facility]. Diskectomy and laminectomy PAST SURGICAL [...] (FLONASE) 50 mcg/actuation nasal spray Use 1 [place] in each nostril once daily. pantoprazole DR (PROTONIX) 40 mg tablet Take 1 tablet by mouth once daily. albuterol HFA (PROAIR HFA) 90 mcg/actuation inhaler Inhale 2 Puffs as instructed every 4 hours as needed. vit A,C,F-Ytmw-Iydoli (OCUVITE PRESERVISION) 2,148 mcg-113 mg-45 mg-17.4mg tab [...] physician via US mail. Twyla Cuevas [address] [id number] Claudine Durán MD [address] [address] Ron Veras MD documented in this encounterOur Lady Of Mercy [facility]09-14-2023 Miscellaneous Notes* Telephone Encounter - Isabella Zacarias RN - 11/02/2022 10:12 AM EDT Patient calls back and states that [facility] does have prescription for coumadin. Isabella Zacarias RN * Telephone Encounter - Melanie Mcgregor RN - 11/01/2022 5:24 PM EDT Patient calling to say [facility] tells her they did not receive script for short fill Warfarin. Patient asking if it can be sent again. Pended. Melanie Mcgregor RN documented in this encounterOur Lady Of Mercy Hospital - [facility]09-12-2023 Miscellaneous Notes* Telephone Encounter - Charissa Perez LPN - 10/31/2022 12:10 PM EDT Last OV: 10/27/22 with TYLOR Yi. Pt reports she will be out of medication on and [facility] advised her she had no refills even [...] patient. Charissa Perez LPN documented in this encounterOur Lady Of Mercy Hospital - [facility]09-12-2023 Miscellaneous Notes* Telephone Encounter - Ashly Shay RN - 10/31/2022 8:02 AM EDT Patient calling with request for medication/refill: Patient/caregiver requesting refill of Warfarinbe called to [facility] at online.. Patient denies any new or worsening symptoms of which a provider is not aware: Yes. Patient just discovered she will run out of the below rx on . Is requesting a short term supply be sent to [facility] in [place] and the remainder sent to [facility]. Has been taking medication as ordered. warfarin (COUMADIN) 5 mg tablet 30 tablet 3 07/11/2022 Sig: Take 7.5 mg Tu, Anabel,Fri, Sat, Sun; and 5 mg on Sunday and Sunday Sent to pharmacy as: warfarin (COUMADIN) 5 mg tablet documented in this encounterOur Lady Of Mercy Hospital - [facility]09-08-2023 History of Present illness Narrative* Jimbo Swanson APRN.CNS - 10/27/2022 9:20 AM EDT SUBJECTIVE: BP [...] bicuspid valve, lung nodule bronchiectasis and COPD. Orthodontist Vice President: Florence Collins MD, last seen July 20, 2022. Seen for follow-up of lung nodules bronchiectasis. Noted are a likely etiology for underlying bronchiectasis. Noted new nodularity of lung,likely represents inflammatory nodules. Will need follow-up CT. No this may improve with bronchopulmonary hygiene. Spiriva and intermittent albuterol has helped with cough. Stable. Choir Leader: William Messina BAV, aortic stenosis , last seen in cardiology August 29, 2022 by SANTY Love. Continued on current treatments unchanged. Follow-up echo advised, not yet scheduled.. Refrigeration Engineering Teacher: [facility]. Continues with methotrexate, Humira.seen by Dr. Jane Montoya 06/26/2022 for RA, osteoporosis, degenerative disc disease, arthritis of foot, osteoarthritis of bilateral hands. DEXA scan completed, showed osteoporosis. All yes trying recommended restart of Reclast. Weight: stable Exercise: walking miles most days, feeling well with this . Notes up to 10mi/day when participatingin theLumate production Seen by PCP March 13, 2022. [...] pain, currently taking gabapentin. Plans to see adolescent medicine specialist, referred by equipment maintenance superintendent. Referred by equipment maintenance superintendent to see orthopedic physician for her hip. [...] fluticasone (FLONASE) 50 mcg/actuation nasal spray^Use 1 [place] in each nostril once daily.^Disp: 3 Each^Rfl: [...] hours as needed.^Disp: 1 Each^Rfl: 2 vit A,C,M-Arps-Wraqts (OCUVITE PRESERVISION) 2,148 mcg-113 mg-45 mg-17.4mg tab^Take [...] positive rheumatoid factor (HCC) 03/07/2015 Dr. Hurley ([facility]) Unspecified hemorrhoids without mention of complication [...] ICD9: 724.3, ICD10: M54.41 Plans to see adolescent medicine specialist 6. Hip pain, acute, left - ICD9: 719.45, ICD10: M25.552 7. Rheumatoid arthritis involving multiple sites with positive rheumatoid factor (HCC) - ICD9: 714.0, ICD10: M05.79 Followed by [facility] 8. Bronchiectasis without complication (HCC) [...] Level: 4 - Moderate documented in this encounterOur Lady Of Mercy Hospital - [facility]09-08-2023 Instructions* Patient Instructions* Jimbo Swanson APRN.CNS - 10/27/2022 9:01 AM EDT Consider getting new COVID booster when it becomes available either in clinic or at pharmacy. documented in this encounterOur Lady Of Mercy Hospital - [facility]09-07-2023 History of Present illness Narrative* Jimbo Swanson APRN.CNS - 10/26/2022 4:38 PM EDT Continue with Coumadin dose unchanged and check INR in 2 weeks * Melissa Means RN - 10/26/2022 12:14 PM EDT patient had inr completed at [facility] patients inr is 1.7 (patients inr [...] reading since dose change documented in this encounterOur Lady Of Mercy [facility] - [facility]08-24-2023 History of Present illness Narrative* Maritza Preston [...] PM EDT patient had inr completed at [facility] patients inr is [...] and advise on recommendation documented in this encounterOur Lady Of Mercy [facility] - [facility]08-21-2023 Miscellaneous Notes* Telephone Encounter - Claudine Durán [...] Thank you. CARMEN Viveros documented in this encounterOur Lady Of Mercy Hospital - [facility]08-07-2023 Miscellaneous Notes* Telephone Encounter - Will Babin [...] year. Thanks ~ JJ documented in this encounterOur Lady Of Mercy Hospital - [facility]07-28-2023 Miscellaneous Notes* Telephone Encounter - Muna Porter [...] dose and pt findings. documented in this encounterOur Lady Of Mercy Hospital - Anderson07-20-2023 History of Present illness Narrative* Melissa Means RN - 09/07/2022 4:07 PM EDT PATIENT NOTIFIED OF INFORMATION * Jimbo Swanson APRN.CNS - 09/07/2022 3:49 PM EDT Okay for 5 mg Coumadin Sunday and 7.5 mg all other days. Recheck INR in 1 week * Melissa Means RN - 09/07/2022 11:59 AM EDT patient had inr completed at [facility] patients inr is 2.4 (patients inr [...] weeks patient has been scheduled at that [facility] for an inr follow up 09/14/22 (order is already in place) please review and advise on recommendation documented in this encounterOur Lady Of Mercy Hospital - [facility]07-11-2023 Instructions* Patient Instructions* Rachelle Schulte APRN.AGENT BASED MODELER - 08/29/2022 9:51 AM EDT Please schedule [...] up in 6 months documented in this encounterOur Lady Of Mercy Hospital - [facility]07-11-2023 History of Present illness Narrative* Rachelle Schulte APRN.CNP - 08/29/2022 9:30 AM EDT Images from the original note were not included. [facility] Department of Cardiovascular Medicine SECTION [...] Haydee Bustamante : 1945 PRIMARY CARE PHYSICIAN: Claduine Durán MD CHIEF COMPLAINT: Patient presents with: [...] which included preparing to see the patient, [id number] patient care, completing clinical documentation, performing a [...] prior to the follow up. Rachelle Schulte APRN.[facility] Cardiology Nurse Practitioner Section of Regional Cardiology [place] Dept of Cardiovascular Medicine [facility] [address] [place] [address] Office Office August 29, 2022 7:46 AM This note was partially generated using Wealthsimple recognition system and may contain errors related [...] nodule with faint calcifications suggesting calcified granuloma. Manufacturing Worker: [facility]ITAL[facility]ain Transcribe Date/Time: Jul 24 2022 10:02A Dictated [...] [facility]) 03/07/2015 Dr. Hurley ([facility]) Unspecified hemorrhoids without mention of complication [...] PFSH and ROS obtained by others. Rachelle Schulte, SEAM SEWER.AGENT BASED MODELER CURRENT MEDICATIONS: Current Outpatient Medications Medication Sig budesonide-formoterol (SYMBICORT) 160-4.5 mcg/actuation inhaler Inhale 2 Puffs as instructed twice daily. fluticasone (FLONASE) 50 mcg/actuation nasal spray Use 1 [place] in each nostril once daily. warfarin (COUMADIN) 5 mg tablet Take 7.5 mg , Sun,Sun, Sun, Sun; and 5 mg on Sunday and Sunday pantoprazole DR (PROTONIX) 40 mg tablet Take 1 tablet by mouth once daily. albuterol HFA (PROAIR HFA) 90 mcg/actuation inhaler Inhale 2 Puffs as instructed every 4 hours as needed. vit A,C,F-Uwep-Krwoqt (OCUVITE PRESERVISION) 2,148 mcg-113 mg-45 mg-17.4mg tab [...] mL INTRAVENOUS DIRECTED PRN documented in this encounterOur Lady Of Mercy Hospital - [facility]06-27-2023 Miscellaneous Notes* Telephone Encounter - Magalie Ngo LPN - 08/15/2022 10:20 AM EDT [facility] 07/20/22 Patient phones requesting refills as follows: Requested Prescriptions Pending Prescriptions Disp Refills budesonide-formoterol (SYMBICORT) 160-4.5 mcg/actuation inhaler Sig: Inhale as instructed twice daily. Please review and advise. Magalie Ngo LPN documented in this encounterOur Lady Of Mercy Hospital - [facility]06-25-2023 Miscellaneous Notes* Telephone Encounter - Claudine Durán [...] now. Bakari Catalan LPN documented in this encounterOur Lady Of Mercy Hospital - [facility]06-01-2023 History of Present illness Narrative* Florence Collins MD - 07/20/2022 9:30 AM EDT Images from the original note were not included. . [facility] Note Patient name: Haydee Bustamante PCP: Claudine Durán MD CC: Follow-up chest CT HPI: Haydee Bustamante 77 year old female former 10 pack year smoker with PMH significant for RA (MTX, Humira), HTN, h/o disseminated Histoplasmosis, bronchiectasis, , VTE, pulmonary nodules, who presents for follow-up. Current inhaled therapy with Symbicort and Spiriva. At [facility] with me, she was a newpatient to [...] DATE OF EXAM: Jul 20 2022 9:22AM [facility] 0541 - CT CHEST WO IVCON [...] abdomen within the limits of noncontrast technique.. Coupon Clerk (topogram) images: IVC filter present IMPRESSION: Findings [...] [facility] 03/07/2015 Dr. Hurley ([facility]) Unspecified hemorrhoids without mention of complication [...] hours as needed.^Disp: 1 Each^Rfl: 2 vit A,C,O-Ctjs-Gqwirv (OCUVITE PRESERVISION) 2,148 mcg-113 mg-45 mg-17.4mg tab^Take [...] fluticasone (FLONASE) 50 mcg/actuation nasal spray^Use 1 [place] in each nostril once daily.^Disp: 3 Each^Rfl: [...] SPINE FUSN,POST INTERBODY 2011 Dr. Armando at [facility]. Diskectomy and laminectomy PAST SURGICAL [...] her underlying bronchiectasis Florence Collins MD [facility] documented in this encounterOur Lady Of [facility]cy [facility] - [facility]06-01-2023 History of Present illness Narrative* Faviola Anthony [...] 20, 2022 9:35 AM documented in this encounterOur Lady Of Mercy Hospital - [facility]05-11-2023 History of Present illness Narrative* Jimbo Swanson APRN.MUSHROOM GROWTH MEDIA MIXER - 06/29/2022 1:52 PM EDT Continue with Coumadin dosing unchanged and check INR in 2 weeks * Melissa Means RN - 06/29/2022 10:28 AM EDT patient had inr completed at [facility] patients inr is 2.1 (patients inr [...] reading since dose change documented in this encounterOur Lady Of Mercy Hospital - [facility]04-04-2023 Miscellaneous Notes* Telephone Encounter - Claudine Durán [...] rescheduled. Lani from Dr Rani Cowart's office [facility] states they received a signed clearance [...] is scheduled for surgery tomorrow morning. PH: [phone] X [phone] FAX: [phone]. Maricarmen Jacobs LPN documented in this encounterOur Lady Of Mercy Hospital - [facility]03-16-2023 History of Present illness Narrative* Jimbo Swanson APRN.CNS - 05/04/2022 12:54 PM EDT Continue Coumadin dose unchanged and check INR in 1 month * Melissa Means RN - 05/04/2022 10:26 AM EDT patient had inr completed at [facility] patients inr is 2.0 (patients inr [...] for follow up INR. documented in this encounterOur Lady Of Mercy Hospital - [facility]02-16-2023 History of Present illness Narrative* Jimbo Swanson APRN.CNS - 04/06/2022 12:24 PM EST Continue with Coumadin dose unchanged and check INR in 4 weeks * Melissa Means RN - 04/06/2022 9:45 AM EST patient had inr completed at [facility] patients inr is 2.0 (patients inr [...] for follow up INR. documented in this encounterOur Lady Of Mercy Hospital - [facility]02-09-2023 History of Present illness Narrative* Melissa Means [...] AM EST patient had inr completed at [facility] patients inr is 2.3 (patients inr [...] up inr on 04/06/22 documented in this encounterOur Lady Of Mercy Hospital - [facility]01-23-2023 History of Present illness Narrative* Claudine Durán MD - 03/13/2022 10:41 AM EST This note was created using bigtincanriter. Subjective Haydee Bustamante is a 76 year old female. Patient presents with: 4 month follow up SUBJECTIVE: Haydee Bustamante is a 76 year old year old lady here today for 4 month follow up appointment for reviewof medical conditions. Following with eye doctor. Has early macular degeneration. Given glasses for it. Having foot surgery at [facility] May 19. Told will be extensive--straighten [...] [facility] 03/07/2015 Dr. Hurley ([facility]) Unspecified hemorrhoids without mention of complication Hemorrhoids Current Outpatient Medications Medication Sig naproxen (NAPROSYN) 500 mg tablet Take 1 tablet by mouth twice daily as needed. Take with food gabapentin (NEURONTIN) 300 mg capsule Take 1 capsule by mouth twice daily. fluticasone (FLONASE) 50 mcg/actuation nasal spray Use 1 [place] in each nostril once daily. tiotropium bromide [...] and as needed for preop eval for branch account manager. Noted that has not needed bridging Lovenox when has been off coumadin. Continue present management with anticoagulation. .BP controlled. Continue present management. Claudine Durán MD documented in this encounterOur Lady Of Mercy Hospital - [facility]12-15-2022 History of Present illness Narrative* Jimbo Swanson APRN.CNS - 02/02/2022 1:32 PM EST Continue with Coumadin dose unchanged check INR in 4 weeks * Melissa Means RN - 02/02/2022 10:49 AM EST patient had inr completed at [facility] patients inr is 2.0 (patients inr [...] for follow up INR. documented in this encounterOur Lady Of Mercy Hospital - [facility]11-29-2022 Miscellaneous Notes* Telephone Encounter - Geni Cintron [...] advise. Geni Cintron LPN documented in this encounterOur Lady Of Mercy Hospital - [facility]11-23-2022 Miscellaneous Notes* Telephone Encounter - Lynne Mann LPN - 01/11/2022 9:09 AM EST Spoke with pt and information listed below given. Pt verbalizes understanding. She will get the labs when they are due. 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 Lynne Mann LPN documented in this encounterOur Lady Of Mercy Hospital - [facility]11-17-2022 History of Present illness Narrative* Melissa Means RN - 01/05/2022 4:[address] haynes he agrees with information * Melissa Means RN - 01/05/2022 1:09 PM EST patient had inr completed at [facility] patients inr is 2.2 (patients inr [...] follow u p INR. documented in this encounterOur Lady Of Mercy Hospital - [facility]11-12-2022 History of Present illness Narrative* Katarzyna Gage [...] 31, 2021 11:45 AM documented in this encounterOur Lady Of Mercy Hospital - [facility]11-03-2022 History of Present illness Narrative* Melissa Means RN - 12/22/2021 3:56 PM EDT PATIENT NOTIFIED OF INFORMATION * Jimbo Swanson APRN.CNS - 12/22/2021 1:40 PM EDT Recommend Coumadin 7.5 mg today. Then resume usual dosing 5 mg Sunday and 7.5 mg all other days. Check INR 2 weeks * Melissa Means RN - 12/22/2021 11:16 AM EDT patient had inr completed at [facility] patients inr is 1.4 (patients inr range is 1.7-2.2) patient is currently taking 5mg Mon,Sun,Sun and 7.5mg all other days patients last [...] up inr on 01/05/22 documented in this encounterOur Lady Of Mercy Hospital - [facility]10-11-2022 History of Present illness Narrative* Florence Collins MD - 11/29/2021 10:00 AM EDT Images from the original note were not included. . [facility] Note Patient name: Haydee Bustamante PCP: Claudine Durán MD CC: Follow-up lung disease HPI: Haydee Bustamante 76 year old female former [id number] smoker having quit in 1989 with PMH [...] [facility] 03/07/2015 Dr. Hurley ([facility]) Unspecified hemorrhoids without mention of complication Hemorrhoids ALLERGIES Allergen Reactions Penicillins Hives fluticasone (FLONASE) 50 mcg/actuation nasal spray^Use 1 [place] in each nostril once daily.^Disp: 3 Each^Rfl: [...] SPINE FUSN,POST INTERBODY 2012 Dr. Armando at [facility]. Diskectomy and laminectomy PAST SURGICAL [...] treatment per rheumatology Florence Collins MD [facility] documented in this encounterOur Lady Of Mercy Hospital - [facility]10-06-2022 Miscellaneous Notes* Telephone Encounter - Pili Burgos - 11/24/2021 10:37 AM EDT error documented in this encounterOur Lady Of Mercy Hospital - [facility]09-22-2022 History of Present illness Narrative* Jimbo Swanson APRN.MUSHROOM GROWTH MEDIA MIXER - 11/10/2021 9:20 AM EDT SUBJECTIVE: BP [...] and COPD. HPI excerpted from previous visit: Choir Leader: William GOTTI, aortic stenosis - has 01/2021 appt Orthodontist Vice President: Mirian Medrano / Johanna Mariscal 6 month follow up with PFT 05/2020 Infectious disease:Ayanna Schulte -histoplasmosis on Humira -follow-up in 6 months 09/2019 Refrigeration Engineering Teacher:: Today reports had toe infection has completely healed. States that branch account manager discussed possible amputation of toe but would prefer not to go that route. May see an alternate branch account manager at [facility]. States took blood pressure medication today. [...] 12 mos RA: controlled currently, following with equipment maintenance superintendent. OAC: no bleeding difficulties. Occasional bruising. Spiriva [...] fluticasone (FLONASE) 50 mcg/actuation nasal spray^Use 1 [place] in each nostril once daily.^Disp: 3 Bottle^Rfl: [...] positive rheumatoid factor (HCC) 03/07/2015 Dr. Hurley ([facility]) Unspecified hemorrhoids without mention of complication [...] Abs Lymph 1.00 - 4.00 k/uL 1.64 [place]oto% % 8.0 Abs Desoto <0.87 k/uL 0.60 Eosin% % 2.7 Abs [...] (HCC) - ICD9: 496, ICD10: J44.9 - [id number] 3. Encounter for immunization - ICD9: V03.89, ICD10: Z23 - [employer] COVID-19 BIVALENT BOOSTER VACCINE, AGE 12+ YR - INFLUENZA SEASONAL QUADRIVALENT HIGH DOSE AGE 65+ 4. Gastroesophageal reflux disease without esophagitis - ICD9: 530.81, ICD10: K21.9 5. Bronchiectasis without complication (HCC) - ICD9: 494.0, ICD10: J47.9 6. COPD without exacerbation (HCC) - ICD9: 496, ICD10: J44.9 7. Aortic stenosis with bicuspid valve - ICD9: 746.3, 746.4, ICD10: Q23.0, Q23.1 Jimbo Swanson APRN.CNS] Jimbo Swasnon APRN.CNS Medical Decision Making: Problems: Moderate: 1+ chronic illnesses with change and 2+ stable chronic illnesses Risk: Moderate: Drug management Medical Decision Making Level: 4 - Moderate documented in this encounterOur Lady Of Mercy [facility]09-21-2022 Miscellaneous Notes* Telephone Encounter - Claudine Durán [...] can not be approved. documented in this encounterOur Lady Of Mercy Hospital - [facility]09-20-2022 Miscellaneous Notes* Telephone Encounter - Ruby Tobin [...] you. Ruby Tobin RN documented in this encounterOur Lady Of Mercy Hospital - [facility]09-13-2022 Instructions* Patient Instructions* Chacho Louise - 11/01/2021 9:29 AM EDT Your ulceration is now healed Ok to continue with padding as needed F/u as needed documented in this encounterOur Lady Of Mercy Hospital - [facility]09-13-2022 History of Present illness Narrative* Chacho Louise [...] positive rheumatoid factor (HCC) 03/07/2015 Dr. Hurley ([facility]) Unspecified hemorrhoids without mention of complication [...] (FLONASE) 50 mcg/actuation nasal spray Use 1 [place] in each nostril once daily. (Patientnot taking: [...] SPINE FUSN,POST INTERBODY 2012 Dr. Armando at [facility]. Diskectomy and laminectomy PAST SURGICAL [...] Has stopped wrapping it. documented in this encounterOur Lady Of Mercy Hospital - [facility]09-08-2022 History of Present illness Narrative* Melissa Means RN - 10/27/2021 11:06 AM EDT patient had inr completed at [facility] patients inr is 1.6 (patients inr [...] for follow up INR. documented in this encounterOur Lady Of Mercy [facility] - [facility]08-30-2022 Instructions* Patient Instructions* Chacho Louise - 10/18/2021 9:[address] aquacel on ulceration daily Place lambs wool or guaze horizontally between the interspace Secure lambs wool or guaze with daniella wrap or tape Wear surgical shoe or wide sneaker or even sandal to avoid pressure on 5th toe documented in this encounterOur Lady Of Mercy Hospital - [facility]08-30-2022 History of Present illness Narrative* Chacho Bermudezbushra - 10/18/2021 9:12 AM EDT Initial Podiatric [...] [facility] 03/07/2015 Dr. Hurley ([facility]) Unspecified hemorrhoids without mention of complication [...] (FLONASE) 50 mcg/actuation nasal spray Use 1 [place] in each nostril once daily. (Patientnot taking: [...] SPINE FUSN,POST INTERBODY 2011 Dr. Armando at [facility]. Diskectomy and laminectomy PAST SURGICAL [...] length and thickness Chacho Louise DPM Podiatry [address] [place] [id number] Dept: [phone] Dept * Imelda Quijano LPN - 10/18/2021 8:48 AM EDT AMB ROOMING INTAKE FLOWSHEET DATA Pain Pain Level: 4 Pain Location: Toe Description: Sharp, Raw, Sore Duration Amount of Time: 2 Duration Units: Months Frequency: Intermittent Intervention/Comfort measure: Reposition, Relaxation Patient presents with: Right Foot - Established Patient, Follow Up, Pain, Blister Imelda Quijano LPN documented in this encounterOur Lady Of Mercy Hospital - [facility]08-30-2022 Miscellaneous Notes* Telephone Encounter - Muna Porter [...] you. Muna Porter RN documented in this encounterOur Lady Of Mercy Hospital - [facility]08-24-2022 History of Present illness Narrative* RT Vanessa(Ade) - 10/12/2021 10:00 AM EDT Radiology Service [...] 12, 2021 10:06 AM documented in this encounterOur Lady Of Mercy Hospital - [facility]08-24-2022 History of Present illness Narrative* Krista Martinez [employer] - 10/12/2021 9:30 AM EDT Radiology Service [...] DATA: Not applicable SIGNED BY: Krista Martinez [employer] October 12, 2021 9:56 AM documented in this encounterOur Lady Of Mercy Hospital - [facility]08-11-2022 History of Present illness Narrative* Jimob Swanson APRN.CNS - 09/29/2021 1:52 PM EDT Continue current Coumadin dose unchanged and check INR in 4 weeks * Melissa Means RN - 09/29/2021 1:20 PM EDT patient had inr completed at [facility] patients inr is 2.0 (patients inr [...] for follow up INR. documented in this encounterOur Lady Of Mercy Hospital - [facility]08-02-2022 Instructions* Patient Instructions* Jimbo Swanson APRN.CNS - 09/20/2021 1:55 PM EDT Keep your toe clean dry and . Was with soap and water daily, dry thoroughly. Use lambswool between toes. Avoid tight shoes documented in this encounterOur Lady Of Mercy Hospital - [facility]08-02-2022 History of Present illness Narrative* Jimbo Swanson [...] and COPD. HPI excerpted from previous visit: Choir Leader: William Messina BAV, aortic stenosis - has 01/2021 appt Orthodontist Vice President: Mirian Medrano / Johanna Mariscal 6 month follow up with PFT 05/2020 Infectious disease:Ayanna Schulte -histoplasmosis on Humira -follow-up in 6 months 09/2019 Refrigeration Engineering Teacher:: Home blood pressure and heart rate: no [...] 12 mos RA: controlled currently, following with equipment maintenance superintendent. Histoplasmosis: notes resolved symptoms. OAC: no bleeding difficulties. Occasional bruising. Spiriva and intermittent albuterol has helped with cough. Presents today for foot lesion. She notes she is been wearing tight shoes for a [employer] production at [facility] for about a month. She [...] (FLONASE) 50 mcg/actuation nasal spray Use 1 [place] in each nostril once daily. econazole (SPECTAZOLE) [...] positive rheumatoid factor (HCC) 03/07/2015 Dr. Hurley ([facility]) Unspecified hemorrhoids without mention of complication [...] Abs Lymph 1.00 - 4.00 k/uL 1.64 Desoto% % 8.0 Abs [place]oto <0.87 k/uL 0.60 Eosin% % 2.7 Abs [...] Level: 3 - Low documented in this encounterOur Lady Of [facility] Miscellaneous Notes* Letter - Mammography Coordinator - 09/05/2021 10:07 AM EDT September 05, 2021 PID: [id number] Haydee Bustamante [address] [place] [address] Dear Ms. Bustamante, Your recent breast imaging exam on 09/05/2021 showed a possible finding that requires additional imaging studies for a complete evaluation. Most such findings are probably benign (not cancer). If you have a healthcare provider who ordered/prescribed your screening mammogram: Please call [phone] or [phone] to schedule an appointment for your additional [...] and reports are kept on file at [facility] as part of your permanent medical record, and are available for your continuing care. Thank you for allowing us to help in meeting your health care needs. Sincerely, Dr. Bell Interpreting Radiologist [facility] (Additional imaging) documented in this encounterOur Lady Of Mercy [facility]07-18-2022 History of Present illness Narrative* Haider Hernandez [...] 05, 2021 9:28 AM documented in this encounterOur Lady Of [facility]cy [facility]07-05-2022 History of Present illness Narrative* Melissa Means RN - 08/23/2021 4:36 PM EDT per verbal order by electronic technologist provider dr rowell she agrees with information * Melissa Means RN - 08/23/2021 12:01 PM EDT patient had inr completed at [facility] patients inr is 2.2 (patients inr [...] for follow up INR. documented in this encounterOur Lady Of Mercy [facility]06-24-2022 History of Present illness Narrative* William Messina, - 08/12/2021 11:31 AM EDT Images from the original note were not included. [facility] SECTION OF [facility]AL [facility]Y [facility] OUTPATIENT VISIT DATE August 12, 2021 PRIMARY CARE PHYSICIAN: Claudine Durán [address] [place] [address] HISTORY OF PRESENT ILLNESS: Ms. Bustamante is a 76 year old female. The patient returns for follow-up due to history of known bicuspid aortic valve stenosis. Previous stenosis has been evaluation as showed this to be mild. Additionalhistory includes hypertension. 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 She is planning on doing [employer] again this summer. She denies chest [...] [facility]) 03/07/2015 Dr. Hurley ([facility]) Unspecified hemorrhoids without mention of complication [...] SPINE FUSN,POST INTERBODY 2012 Dr. Armando at [facility]. Diskectomy and laminectomy PAST SURGICAL [...] (FLONASE) 50 mcg/actuation nasal spray Use 1 [place] in each nostril once daily. econazole (SPECTAZOLE) [...] Department of Medicine and Division of Cardiology, [facility] Manager Flighthome care attendant [facility] Manager Flight of Congestive Heart Failure Clinic [facility] Cardiology Office Manager Flight [facility] Staff Choir Leader, [place] and Edilma Pierce Department of Cardiovascular Medicine/Heart and Vascular [place], [facility] Clinical Hybrid Corn Breeder Profressor of Medicine, [facility] Please note: This note has been produced using speech recognition software and may contain errors related to that system including madelyn, punctuation, spelling, words, gender and phrases that may be inappropriate. documented in this encounterOur Lady Of Mercy [facility]06-10-2022 Miscellaneous Notes* Telephone Encounter - Nahomy Mercado - 07/29/2021 2:32 PM EDT Pharmacy faxed requesting the following refill. Pending Prescriptions Disp Refills SYMBICORT 160 MCG-4.5 MCG/ACTUATION HFA AEROSOL INHALER 30.6 g 4 Sig: USE 2 INHALATIONS TWICE A DAY INSTRUCTED YULIANA: Yes Patient last appointment: [address] [place] [address] Andujar Patient Phone numbers: [phone] (home) Request is for script(s) to be escript to pharmacy. Nahomy Mercado documented in this encounterOur Lady Of Mercy [facility]06-06-2022 History of Present illness Narrative* Melissa Means RN - 07/25/2021 4:39 PM EDT pcp agrees with information * Melissa Means RN - 07/25/2021 11:43 AM EDT patient had inr completed at [facility] patients inr is 1.8 (patients inr [...] for follow up INR. documented in this encounterOur Lady Of [facility]cy [facility]05-23-2022 History of Present illness Narrative* Claudine Durán MD - 07/11/2021 8:18 AM EDT This note was created using bigtincanriter. Subjective Haydee Bustamante is a 76 year [...] toe surgery for now--has show. 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 Noted fell when missed top step. [...] positive rheumatoid factor (HCC) 03/07/2015 Dr. Hurley ([facility]) Unspecified hemorrhoids without mention of complication [...] (FLONASE) 50 mcg/actuation nasal spray Use 1 [place] in each nostril once daily. econazole (SPECTAZOLE) [...] Abs Lymph 1.00 - 4.00 k/uL 1.64 [place]oto% % 8.0 Abs [place] <0.87 k/uL 0.60 Eosin% % 2.7 Abs [...] vaccine - ICD9: V04.89, ICD10: Z23 - [employer] COVID-19 VACCINE, AGE 12+ YR (ARIAS TOP) 6. COPD without exacerbation (HCC) - ICD9: 496, ICD10: J44.9 Continue present management. Discussed Dr. Andujar's instructions to use albuterol before activity that causes coughing 7. Bronchiectasis without complication (HCC) - ICD9: 494.0, ICD10: J47.9 As noted above. Fall discussed. Arthritis discussed. Claudine Durán MD documented in this encounterOur Lady Of Mercy [facility]05-12-2022 History of Present illness Narrative* Gold Colón [...] venegas name is Katarzyna Malcolm RN your Cloth Carrier from Claudine Durán MD office at the [facility]. I am reaching out today because I [...] with Patient: No, first attempt, left message. Brianjcarlos Haydee Rees Robby. This is Katarzyna Malcolm RN your Cloth Carrier from the [facility]. I am calling to check in with you concerning the MyChart questionnaire you have been receiving from me. I will call you again tomorrow and am looking forward to speaking with you. (Cloth Carrier enters next day in "next patient outreach") Katarzyna Malcolm RN June 29, 2021 3:31 PM documented in this encounterOur Lady Of Mercy [facility]04-21-2022 History of Present illness Narrative* Melissa Means RN - 06/09/2021 4:19 PM EDT per electronic technologist provider dr garza patient is to continue same dose PATIENT NOTIFIED OF INFORMATION * Melissa Means RN - 06/09/2021 10:26 AM EDT patient had inr completed at [facility] patients inr is 1.6 (patients inr [...] for follow up INR. documented in this encounterOur Lady Of Mercy [facility]04-18-2022 Miscellaneous Notes* Telephone Encounter - Sergey Ramirez [...] pharmacy. Sergey Ramirez Ma documented in this encounterOur Lady Of Mercy [facility]04-11-2022 Instructions* Patient Instructions* Mirian Andujar MD - [...] I am retiring from the staff of [facility] and the practice of Medicine on August [...] and Johanna Mariscal PA-C. documented in this encounterOur Lady Of Mercy [facility]04-11-2022 History of Present illness Narrative* Mirian Andujar MD - 2021 3:33 PM EDT [facility] Res[facility] [place], 2021: Name: Haydee Bustamante : 1945 INTERVAL [...] months, sooner if needed. Mirian Andujar MD, [facility] Res[facility] [address] [place] [id number] P: [phone] F: [phone] documented in this encounterOur Lady Of [facility]04-07-2022 History of Present illness Narrative* Melissa Means RN - 05/26/2021 3:21 PM EDT electronic technologist provider agrees with information * Melissa Means RN - 05/26/2021 10:43 AM EDT patient had inr completed at [facility] patients inr is 1.6 (patients inr [...] is just slightly low documented in this encounterOur Lady Of [facility]04-01-2022 History of Present illness Narrative* Nara Dill [...] 20, 2021 2:45 PM documented in this encounterOur Lady Of Mercy [facility]01-24-2022 History of Present illness Narrative* Claudine Durán MD - 03/14/2021 8:16 AM EST This note was created using HAUL. Subjective Haydee Bustamante is a 75 year [...] [facility]) 03/07/2015 Dr. Hurley ([facility]) Unspecified hemorrhoids without mention of complication [...] (FLONASE) 50 mcg/actuation nasal spray Use 1 [place] in each nostril once daily. potassium chloride [...] good control - Follows with Dr. Messina ([facility] cardiology) - Continue current medication(s) - [...] 714.0, ICD10: M05.79 Stable on meds through [facility]--Dr. Hurley Gets labs through his office. Lipid ordered. I spent a total of at least 30 minutes on the date of the service which included [id number] patient care, completing clinical documentation, obtaining and/or reviewing separately obtained history, performing a medically appropriate examination, counseling and educating the patient/family/caregiver and ordering medications, tests, or procedures. Claudine Durán MD documented in this encounterOur Lady Of Mercy [facility]01-18-2019 History of Past illness Narrative* Problem Noted [...] of this encounter (statuses as of 05/20/2021) [facility] of Past illness Narrative* Problem Noted [...] of this encounter (statuses as of 05/22/2021) [facility] of Past illness Narrative* Problem Noted [...] of this encounter (statuses as of 05/26/2021) [facility] of Past illness Narrative* Problem Noted [...] of this encounter (statuses as of 06/06/2021) [facility] of Past illness Narrative* Problem Noted [...] of this encounter (statuses as of 06/09/2021) [facility] of Past illness Narrative* Problem Noted [...] of this encounter (statuses as of 06/30/2021) [facility] of Past illness Narrative* Problem Noted [...] of this encounter (statuses as of 07/25/2021) [facility] of Past illness Narrative* Problem Noted [...] of this encounter (statuses as of 08/01/2021) [facility] of Past illness Narrative* Problem Noted [...] of this encounter (statuses as of 08/12/2021) [facility] of Past illness Narrative* Problem Noted [...] of this encounter (statuses as of 08/23/2021) [facility] Past illness Narrative* Problem Noted [...] of this encounter (statuses as of 09/06/2021) [facility] Past illness Narrative* Problem Noted [...] of this encounter (statuses as of 09/06/2021) [facility] Past illness Narrative* Problem Noted [...] of this encounter (statuses as of 09/07/2021) [facility] Narrative* Problem Noted [...] of this encounter (statuses as of 09/20/2021) [facility] illness Narrative* Problem Noted [...] of this encounter (statuses as of 09/29/2021) [facility] Narrative* Problem Noted [...] of this encounter (statuses as of 10/13/2021) [facility] Narrative* Problem Noted [...] of this encounter (statuses as of 10/13/2021) [facility] Narrative* Problem Noted [...] of this encounter (statuses as of 10/18/2021) [facility] Narrative* Problem Noted [...] of this encounter (statuses as of 10/18/2021) [facility] Narrative* Problem Noted [...] of this encounter (statuses as of 10/19/2021) [facility] Narrative* Problem Noted [...] of this encounter (statuses as of 10/27/2021) [facility] Narrative* Problem Noted [...] of this encounter (statuses as of 11/01/2021) [facility] Narrative* Problem Noted [...] of this encounter (statuses as of 11/08/2021) [facility] Narrative* Problem Noted [...] of this encounter (statuses as of 11/10/2021) [facility] Narrative* Problem Noted [...] of this encounter (statuses as of 11/10/2021) [facility] Narrative* Problem Noted [...] of this encounter (statuses as of 11/29/2021) [facility] Narrative* Problem Noted [...] of this encounter (statuses as of 12/04/2021) [facility] Narrative* Problem Noted [...] of this encounter (statuses as of 12/22/2021) [facility] Narrative* Problem Noted [...] of this encounter (statuses as of 12/27/2021) [facility] Narrative* Problem Noted [...] of this encounter (statuses as of 01/05/2022) [facility] Narrative* Problem Noted [...] of this encounter (statuses as of 01/11/2022) [facility] Narrative* Problem Noted [...] of this encounter (statuses as of 01/17/2022) [facility] Narrative* Problem Noted [...] of this encounter (statuses as of 01/17/2022) [facility] Narrative* Problem Noted [...] of this encounter (statuses as of 02/02/2022) [facility] Narrative* Problem Noted [...] of this encounter (statuses as of 02/22/2022) [facility] Narrative* Problem Noted [...] of this encounter (statuses as of 02/24/2022) [facility] Narrative* Problem Noted [...] of this encounter (statuses as of 03/14/2022) [facility] Narrative* Problem Noted [...] of this encounter (statuses as of 03/30/2022) [facility] Narrative* Problem Noted [...] of this encounter (statuses as of 04/06/2022) [facility] Narrative* Problem Noted [...] of this encounter (statuses as of 04/21/2022) [facility] Narrative* Problem Noted [...] of this encounter (statuses as of 05/04/2022) [facility] Narr[facility]* Problem Noted [...] of this encounter (statuses as of 05/24/2022) [facility] Narrative* Problem Noted [...] of this encounter (statuses as of 06/01/2022) [facility] Narrative* Problem Noted [...] of this encounter (statuses as of 06/29/2022) [facility] Narrative* Problem Noted [...] of this encounter (statuses as of 07/24/2022) [facility] Narrative* Problem Noted [...] of this encounter (statuses as of 07/24/2022) [facility] Narrative* Problem Noted [...] of this encounter (statuses as of 08/13/2022) [facility] Narrative* Problem Noted [...] of this encounter (statuses as of 08/15/2022) [facility] Narrative* Problem Noted [...] of this encounter (statuses as of 09/08/2022) [facility] Narrative* Problem Noted [...] of this encounter (statuses as of 09/11/2022) [facility] Narrative* Problem Noted [...] of this encounter (statuses as of 09/15/2022) [facility] Narrative* Problem Noted [...] of this encounter (statuses as of 09/26/2022) [facility] Narrative* Problem Noted [...] of this encounter (statuses as of 10/10/2022) [facility] Narrative* Problem Noted [...] of this encounter (statuses as of 10/13/2022) [facility] Narrative* Problem Noted [...] of this encounter (statuses as of 10/27/2022) [facility] Narr[facility]* Problem Noted [...] of this encounter (statuses as of 10/27/2022) [facility] Narrative* Problem Noted [...] of this encounter (statuses as of 10/31/2022) [facility] Narrative* Problem Noted [...] of this encounter (statuses as of 10/31/2022) [facility] Narrative* Problem Noted [...] of this encounter (statuses as of 11/02/2022) [facility] Narrative* Problem Noted [...] of this encounter (statuses as of 11/10/2022) [facility] Narrative* Problem Noted [...] of this encounter (statuses as of 11/23/2022) [facility] Narrative* Problem Noted [...] of this encounter (statuses as of 12/07/2022) [facility] Narrative* Problem Noted [...] of this encounter (statuses as of 12/07/2022) [facility] Narrative* Problem Noted [...] of this encounter (statuses as of 12/15/2022) [facility] Narrative* Problem Noted [...] of this encounter (statuses as of 12/20/2022) [facility] Narrative* Problem Noted [...] of this encounter (statuses as of 12/24/2022) [facility] Narrative* Problem Noted [...] of this encounter (statuses as of 12/24/2022) [facility] Narrative* Problem Noted Date Diagnosed Date Resolved Date Murmur 03/08/2018 08/05/2018 Anemia 03/08/2018 04/26/2018 DVT, recurrent, lower extremity, acute 12/10/2014 03/03/2018 Overview: Remote history of DVT S/P IVC filter On Warfarin 5 mg TTSS, 7.5 mg MWF Right sided sciatica 03/20/2011 02/09/2 015 Hypertension 04/13/2010 03/07/2015 Rheumatoid arthritis 04/01/2009 016 Enthesopathy of hip region 01/04/2009 0 07/07/2021 Embolism and thrombosis 11/23/200606/19 Pain in joint, lower leg 10/18/200601/2019 documented as of this encounter (statuses as of 01/04/2023) [facility] Narrative* Problem Noted [...] of this encounter (statuses as of 01/05/2023) [facility] Narrative* Problem Noted [...] of this encounter (statuses as of 01/10/2023) [facility] Narrative* Problem Noted [...] of this encounter (statuses as of 01/18/2023) [facility] Narrative* Problem Noted [...] of this encounter (statuses as of 01/24/2023) [facility] Narrative* Problem Noted [...] of this encounter (statuses as of 02/03/2023) [facility] Narrative* Problem Noted [...] of this encounter (statuses as of 02/08/2023) [facility] Narrative* Problem Noted [...] of this encounter (statuses as of 03/24/2023) [facility] Narrative* Problem Noted [...] of this encounter (statuses as of 03/27/2023) [facility] Narrative* Problem Noted [...] of this encounter (statuses as of 04/01/2023) [facility] Narrative* Problem Noted [...] of this encounter (statuses as of 04/03/2023) [facility] Narrative* Problem Noted [...] of this encounter (statuses as of 04/30/2023) [facility]Reason for [facility] Narrative* Chief Complaint BLOOD IN SPUTUM DEBILITY Reason for Visit Colitis Confusion COVID-19 Generalized weakness Histoplasmosis [facility] Work Phone: Discharge summary Author Jasmyn Chan [facility] April 05, 2023 11:35am Note Date/Time April 05, 2023 11:26am [facility] Medical Records Department [address] [place] [address] Transfer to [facility] MR#: [id number] Acct: [id number] Name: HAYDEE BUSTAMANTE Rep #:[id number] : 1945 77 From: Jasmyn Chan DO PCP: Dr. Claudine Durán MD Status:AD M IN Certification of patient admission REQUIRED AT TIME OF ADMISSION. I CERTIFY THAT POST-HOSPITAL ECF SERVICES ARE REQUIRED TO BE GIVEN ON AN IN-PATIENT BASIS BECAUSE OF THE ABOVE NAMED PATIENT'S NEED FOR HALFWAY CARE ON A CONTINUING BASIS FOR THE [...] Royal; Leobardo Calloway; Jorgito Agarwal; Rosalina Herrera PROCESS TRAINER Discharge Orders/Prescriptions Prescriptions: New acetaminophen 325 mg [...] Qty: 0 0RF fluticasone propionate 50 mcg/actuation [place],Suspension 1 spray NASAL DAILY Qty: 0 0RF [...] in before D/C Order can be placed): [facility]way Facility 04/05/23 9672 <Electronically signed by Jasmyn Chan DO> Cosigner Signature (if applicable): CC: PROCESS TRAINER-C Rosalina Herrera; Dr. Alisa Mathew MD; Dr. [...] Royal MD; Dr. Jorgito Agarwal DO ~ [facility] Work Phone: Discharge summary Author Ron Mariscal [facility] Note Date/Time August 23, 2024 10:29 am [facility] Medical Records Department [address] [place] [address] Emergency Department Summary 08/23/24 MR#: [id number] Acct: [id number] Name: HAYDEE BUSTAMANTE Rep #:[id number] : 1945 79 From: Ron Mariscal MD [...] at any point in time or syncope. Ipqet-pwnh-tddiquug. Lives by herself. 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 She states this morning she laid there [...] to if her wrist was not injured [facility] Medical History Hypertension GERD (gastroesophageal [...] suppl ement 03/19/23 10/01/23 History tablet) vitamins A,C,L-hcrd-nusrby 2,148 2 tab PO BID eye heal [...] tabs Instructions: ON HOLD FOR COLONOSCOPY omega 6-syd-aor-fish oil 1,200 mg 1 cap PO DAILY [...] motor deficits and no sensory deficits noted Titus Coma Scale: document GCS findings Spontaneous Obeys [...] 82.3 H Lymph % (Auto) 8.1 L [place]oto % (Auto) 8.6 Eos % (Auto) 0.1 [...] distal radius with intra-articular extension. Reading Location: [facility] Brain CT 08/23/24 08:06 IMPRESSION: 1. Generalized brain atrophy. 2. Small vessel ischemic/degenerative changes. 3. No acute intracranial hemorrhage, midline shift or mass effect. If symptoms persist, further evaluation with MRI is recommended. Reading Location: [facility] Management Discussion w/another healthcare provider: [employer] (ezekiel amanda) Procedures Upper Extremity Splints Upper [...] functional status Disposition Disposition: Acute Care Hospital [facility] What to do if you have Problems For any increased pain, shortness of breath, bleeding, nausea or vomiting, chestpain, or any unexpected problems, contact your Primary Care Provider. Call [facility] ([phone]) or report to the closest Emergency Room. Call 911 if necessary. 08/23/24 1029 <Electronically signed by Ron Mariscal MD> Cosigner Signature (if applicable): CC: Dr. Claudine Durán MD ~ Signed [facility] Work Phone: Discharge summary Author Krissy Hilario [facility] Note Date/Time October 19, 2024 2: 34am [facility] Medical Records Department [address] [place] [address] Emergency Department Summary 10/19/24 MR#: [id number] Acct: [id number] Name: HAYDEE BUSTAMANTE Rep #:[id number] : 1945 79 From: Krissy Hilario MD [...] normally does when she bent down to tack picker a blanket that was on the [...] in the last 5 years she reports. [facility] Medical History Declining functional status [...] suppl ement 03/19/23 10/01/23 History tablet) vitamins A,C,M-xfbo-zunabe 2,148 2 tab PO BID eye heal th 03/19/23 10/01/23 History mcg-113 mg-45 mg-17.4 mg tablet (PreserVision AREDS) gabapentin 300 mg capsule 300 mg PO Q12 nerve pain #0 caps 04/05/23 10/01/23 Rx potassium chloride 20 mEq 20 meq PO BIDCM #0 tabs 0310/1210/01/23 Rx tablet,extended release(part/cryst) fluticasone propionate 50 1 [...] evidence for acute brain abnormality. Reading Location: [place] [address] 10/19/24 00:56 IMPRESSION: Straightened cervical curve denoting myospasm. No acute vertebral fractures, structural collapse or dislocation. 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 Reading Location: [place] [address] Discharge Plan Triage Chief Complaint: Fall ED [...] worsen or new symptoms develop. Print Language: Yemeni Disposition Disposition: Home, Self Care What to do if you have Problems For any increased pain, shortness of breath, bleeding, nausea or vomiting, chestpain, or any unexpected problems, contact your Primary Care Provider. Call [facility] ([phone]) or report to the closest Emergency Room. Call 911 if necessary. 10/19/24 0234 <Electronically signed by Krissy Hilario MD> Cosigner Signature (if applicable): CC: Dr. Claudine Durán MD ~ Signed [facility] Work Phone: Evaluation note* Diagnosis Screening mammogram, encounter for- [facility] Diagnosis Essential hypertension- Primary Unspecified essential hypertension History of COVID-19 Cough Bronchiectasis without complication (HCC) Bronchiectasis without acute exacerbation Gastroesophageal reflux disease without esophagitis Esophageal reflux Aortic stenosis with bicuspid valve Rheumatoid arthritis involving multiple sites with positive rheumatoid factor (HCC) [facility]* Diagnosis Embolism and thrombosis (HCC) Embolism and thrombosis of unspecified site [facility]* Diagnosis Moderate COPD (chronic obstructive pulmonary disease) (HCC)- Primary Chronic airway obstruction, not elsewhere classified Bronchiectasis without complication (HCC) Bronchiectasis without acute exacerbation Centrilobular emphysema (HCC) Other emphysema [facility]* Diagnosis Cough due to bronchospasm Acute bronchospasm [facility]* Diagnosis Embolism and thrombosis (HCC) Embolism and thrombosis of unspecified site [facility] noteNo assessment information availableWSelect Medical [facility] Work Phone: Evaluation note* Diagnosis Personal history of DVT (deep vein thrombosis)- Primary Personal history of venous thrombosis and embolism [facility]* Diagnosis Aortic stenosis with bicuspid valve- Primary Essential hypertension Unspecified essential hypertension documented in this encounter [facility] note* Diagnosis Personal history of DVT (deep vein thrombosis)- Primary Personal history of venous thrombosis and embolism documented in this encounter [facility] note* Diagnosis Encounter for screening mammogram for breast cancer [facility]* Diagnosis Gastroesophageal reflux disease without esophagitis- Primary Esophageal reflux Other viral warts Elevated LDL cholesterol level Pure hypercholesterolemia Essential hypertension Unspecified essential hypertension Need for COVID-19 vaccine COPD without exacerbation (HCC) Bronchiectasis without complication (HCC) Bronchiectasis without acute exacerbation documented in this encounter [facility] note* Diagnosis Toe infection- Primary Unspecified local infection of skin and subcutaneous tissue Sinobronchitis Unspecified sinusitis (chronic) [facility]* Diagnosis Personal history of DVT (deep vein thrombosis)- Primary Personal history of venous thrombosis and embolism [facility]* Diagnosis Abnormal mammogram Abnormal mammogram, unspecified [facility]* Diagnosis Ulcer of toe of left foot, limited to breakdown of skin (HCC)- Primary Hammer toe of left foot Onychodystrophy Other specified disease of nail [facility]* Diagnosis Embolism and thrombosis (HCC) Embolism and thrombosis of unspecified site [facility]* Diagnosis Ulcer of toe of left foot, limited to breakdown of skin (HCC) Hammer toe of left foot [facility]* Diagnosis Ulcer of toe of left foot, limited to breakdown of skin (HCC)- Primary Hammer toe of left foot Hallux rigidus of left foot Hallux rigidus [facility] Diagnosis COPD without exacerbation (HCC) Essential hypertension Unspecified essential hypertension [facility] Diagnosis Essential hypertension- Primary Unspecified essential hypertension Chronic obstructive pulmonary disease, unspecified COPD type (HCC) Encounter for immunization Need for other specified prophylactic vaccination against single bacterial disease Gastroesophageal reflux disease without esophagitis Esophageal reflux Bronchiectasis without complication (HCC) Bronchiectasis without acute exacerbation Aortic stenosis with bicuspid valve [facility] Diagnosis Lung nodules- Primary Other nonspecific abnormal finding of lung field Bronchiectasis without complication (HCC) Bronchiectasis without acute exacerbation Chronic obstructive pulmonary disease, unspecified COPD type (HCC) Rheumatoid arthritis involving multiple sites with positive rheumatoid factor (HCC) [facility]* Diagnosis Personal history of DVT (deep vein thrombosis)- Primary Personal history of venous thrombosis and embolism [facility] Diagnosis Rheumatoid arthritis involving multiple sites with positive rheumatoid factor (HCC) Low back pain with right-sided sciatica, unspecified back pain laterality, unspecified chronicity [facility] Rheumatoid arthritis involving multiple sites with positive rheumatoid factor (HCC) Low back pain with right-sided sciatica, unspecified back pain laterality, unspecified chronicity Pseudogout Other disorder of calcium metabolism [facility] Diagnosis Personal history of DVT (deep vein thrombosis)- Primary Personal history of venous thrombosis and embolism [facility] Diagnosis Essential hypertension- Primary Unspecified essential hypertension Chronic anticoagulation Long-term (current) use of 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 Aortic stenosis with bicuspid valve Rheumatoid arthritis involving multiple sites with positive rheumatoid factor (HCC) COPD without exacerbation (HCC) Bronchiectasis without complication (HCC) Bronchiectasis without acute exacerbation Acquired hammertoe of left foot Early dry stage nonexudative age-related macular degeneration of both eyes [facility] Diagnosis Personal history of DVT (deep vein thrombosis)- Primary Personal history of venous thrombosis and embolism [facility] Diagnosis Personal history of DVT (deep vein thrombosis)- Primary Personal history of venous thrombosis and embolism [facility] Diagnosis Personal history of DVT (deep vein thrombosis)- Primary Personal history of venous thrombosis and embolism [facility] Diagnosis Lung nodules- Primary Other [...] thrombosis and embolism [facility]* Diagnosis Aortic stenosis with bicuspid [...] [facility] current use of anticoagulant therapy- Primary Long-term (current) use of 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 [facility] [...] with bicuspid valve [facility] Diagnosis Chronic anticoagulation Long-term (current) use of 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 [facility] Diagnosis Chronic anticoagulation Long-term (current) use of 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 [facility] Diagnosis Personal history of DVT (deep vein thrombosis)- Primary Personal history of venous thrombosis and embolism [facility] Diagnosis Embolism and thrombosis (HCC)- Primary Embolism and thrombosis of unspecified site [facility]* Diagnosis DDD (degenerative disc disease), lumbar- Primary Degeneration of lumbar or lumbosacral intervertebral disc Hip pain, acute, left Age-related osteoporosis without current pathological fracture Senile osteoporosis [facility]* Diagnosis Embolism and thrombosis (HCC)- Primary Embolism and thrombosis of unspecified site [facility]* Diagnosis 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 rheumatoid factor (HCC) Low back pain with right-sided sciatica, unspecified back pain laterality, unspecified chronicity [facility]* Diagnosis Lung nodules Other nonspecific abnormal finding of lung field documented in this encounter [facility] note* Diagnosis Encounter for screening mammogram for breast cancer documented in this encounter [facility] note* Diagnosis Encounter for immunization- Primary Need for other specified prophylactic vaccination against single bacterial disease documented in this encounter [facility] note* Diagnosis Embolism and thrombosis (HCC)- Primary Embolism and thrombosis of unspecified site documented in this encounter [facility] note* Diagnosis Personal history of DVT (deep vein thrombosis)- Primary Personal history of venous thrombosis and embolism documented in this encounter [facility] note* Diagnosis Acute cough- Primary documented in this encounter [facility] note* Diagnosis Onset Date Resolution Status Colitis acute Confusion acute COVID-19 acute Generalized weakness acute Histoplasmosis acute [facility] Work Phone: Evaluation note* Diagnosis Onset Date Resolution Status Confusion acute COVID-19 acute Generalized weakness acute Histoplasmosis acute [facility] Work Phone: Evaluation note* Diagnosis Onset Date Resolution Status Confusion acute COVID-19 acute Generalized weakness acute Histoplasmosis acute Adult failure to thrive acut e Cellulitis acute Generalized weakness acute History of DVT (deep vein thrombosis) acute Leg edema acute Rheumatoid arthritis acute Weakness acute [facility] Work Phone: Evaluation note* Diagnosis Hypoalbuminemia- Primary Other disorders of plasma protein metabolism Elevated alkaline phosphatase level Other nonspecific abnormal serum enzyme levels Elevated LFTs Other abnormal blood chemistry Anemia, unspecified type Leukocytosis, unspecified type documented in this encounter [facility] note* Diagnosis Onset Date Resolution Status Adult failure to thrive acut e Cellulitis acute History of DVT (deep vein thrombosis) acute Leg edema acute Rheumatoid arthritis acute Thrombocytopenia acute Weakness acute Anemia chronic [facility] Work Phone: Evaluation note* Diagnosis Onset Date [...] acute COPD (chronic obstructive pulmonary disease) chronic [facility] Work Phone: Evaluation note* Diagnosis Onset Date [...] resolved Edema resolved Failure to thrive resolved [facility] Work Phone: Evaluation note* Diagnosis Rheumatoid arthritis involving multiple sites with positive rheumatoid factor (HCC) Low back pain with right-sided sciatica, unspecified back pain laterality, unspecified chronicity [facility] Diagnosis Rheumatoid arthritis involving multiple sites with positive rheumatoid factor (HCC) Low back pain with right-sided sciatica, unspecified back pain laterality, unspecified chronicity Pseudogout Other disorder of calcium metabolism [facility]* Diagnosis Personal history of DVT (deep vein thrombosis)- Primary Personal history of venous thrombosis and embolism [facility] Diagnosis Acute pain of right knee- Primary Chronic anticoagulation Long-term (current) use of 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 Hip pain, acute, left Pain and swelling of right lower leg [facility] Diagnosis Personal history of DVT (deep vein thrombosis)- Primary Personal history of venous thrombosis and embolism [facility] Diagnosis Anemia, unspecified type- Primary Elevated LFTs Other abnormal blood chemistry COPD without exacerbation (HCC) Essential hypertension Unspecified essential hypertension Cough due to bronchospasm Acute bronchospasm Chronic anticoagulation Long-term (current) use of 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 Encounter for long-term current use of medication Gastric ulcer with hemorrhage, unspecified chronicity [facility] Diagnosis Right knee pain, unspecified chronicity- Primary [facility] Diagnosis prison current use of anticoagulant therapy- Primary Long-term (current) use of 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 [facility]* Diagnosis COPD without exacerbation (HCC) documented [facility]* Diagnosis COPD without exacerbation (HCC) documented [facility]* Diagnosis Rheumatoid arthritis involving multiple sites with positive rheumatoid factor (HCC)- Primary Edema, unspecified type Encounter for therapeutic drug monitoring documented [facility]* Diagnosis Personal history of DVT (deep vein thrombosis)- Primary Personal history of venous thrombosis and embolism [facility]* Diagnosis Rheumatoid arthritis involving multiple sites with positive rheumatoid factor (HCC)- Primary Pain and swelling of right knee documented [facility]* Diagnosis Nonrheumatic aortic valve stenosis- Primary Aortic valve disorders Mitral valve stenosis, non-rheumatic Mitral valve disorders Essential hypertension Unspecified essential hypertension Pericardial effusion (noninflammatory) Leg edema Edema prison current use of anticoagulant therapy Long-term (current) use of 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 [facility]* Diagnosis Personal history of DVT (deep vein thrombosis)- Primary Personal history of venous thrombosis and embolism documented [facility]* Diagnosis Disseminated histoplasmosis Histoplasmosis, unspecified without mention of manifestation [facility]* Diagnosis COPD without exacerbation (HCC) documented [facility]* Diagnosis Disseminated histoplasmosis- Primary Histoplasmosis, unspecified [...] of digestive system documented [facility]* Diagnosis Edema, unspecified type- Primary documented [facility]* Diagnosis Personal history of DVT (deep vein thrombosis)- Primary Personal history of venous thrombosis and embolism [facility]* Diagnosis Anemia, unspecified type- Primary Bilateral lower extremity edema Edema Chronic anticoagulation Long-term (current) use of 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 Moderate to severe aortic stenosis Aortic valve disorders Disseminated histoplasmosis Histoplasmosis, unspecified without mention of manifestation Nodule of lower lobe of left lung Encounter for long-term current use of medication [facility] Diagnosis Edema, unspecified type documented [facility] Diagnosis Personal history of DVT (deep vein thrombosis)- Primary Personal history of venous thrombosis and embolism documented [facility]* Diagnosis Rheumatoid arthritis involving multiple sites with positive rheumatoid factor (HCC) Low back pain with right-sided sciatica, unspecified back pain laterality, unspecified chronicity documented [facility]* Diagnosis Disseminated histoplasmosis Histoplasmosis, unspecified without mention of manifestation [facility]* Diagnosis Aortic valve stenosis, etiology of cardiac valve disease unspecified- Primary Mitral valve stenosis, unspecified etiology Pericardial effusion Unspecified disease of pericardium Gastrointestinal hemorrhage, unspecified gastrointestinal hemorrhage type Rheumatoid arthritis with positive rheumatoid factor, involving unspecified site (HCC) Edema, unspecified type Blood loss anemia Iron deficiency anemia secondary to blood loss (chronic) documented [facility] Diagnosis Aortic stenosis with bicuspid valve- Primary Pericardial effusion Unspecified disease of pericardium Essential hypertension Unspecified essential hypertension Chronic heart failure with preserved ejection fraction (HFpEF) (HCC) Mitral valve stenosis, non-rheumatic Mitral valve disorders Nonrheumatic tricuspid valve regurgitation Tricuspid valve disorders, specified as nonrheumatic [facility]* Diagnosis Personal history of DVT (deep vein thrombosis)- Primary Personal history of venous thrombosis and embolism [facility]* Diagnosis Chronic anticoagulation Long-term (current) use of 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 documented [facility] Diagnosis Personal history of DVT (deep vein thrombosis)- Primary Personal history of venous thrombosis and embolism [facility]* Diagnosis Acute cough [facility]* Diagnosis Disseminated histoplasmosis Histoplasmosis, unspecified without mention of manifestation documented in this encounter [facility] note* Diagnosis Personal history of DVT (deep vein thrombosis)- Primary Personal history of venous thrombosis and embolism [facility] Diagnosis Personal history of DVT (deep vein thrombosis)- Primary Personal history of venous thrombosis and embolism documented [facility]* Diagnosis COPD without exacerbation (HCC) [facility]* Diagnosis Disseminated histoplasmosis- Primary Histoplasmosis, unspecified [...] disorders [facility] Diagnosis Rheumatoid arthritis with positive rheumatoid factor, involving unspecified site (HCC)- Primary Nonrheumatic aortic valve stenosis Aortic valve disorders Nonrheumatic mitral valve stenosis Pericardial effusion Unspecified disease of pericardium Histoplasmosis Histoplasmosis, unspecified without mention of manifestation [facility] Personal history of DVT (deep vein thrombosis)- Primary Personal history of venous thrombosis and embolism [facility] Diagnosis Disseminated histoplasmosis Histoplasmosis, unspecified without mention of manifestation Nonrheumatic aortic valve stenosis Aortic valve disorders [facility] Diagnosis Chronic heart failure with [...] Aortic valve disorders [facility] Diagnosis Personal history of DVT (deep vein thrombosis)- Primary Personal history of venous thrombosis and embolism Nonrheumatic aortic valve stenosis Aortic valve disorders [facility] Diagnosis Nonrheumatic aortic valve stenosis- [...] Aortic valve disorders [facility]* Diagnosis Nonrheumatic aortic valve stenosis- Primary Aortic valve disorders documented in this encounter [facility] note* Diagnosis Nonrheumatic aortic valve stenosis- Primary Aortic valve disorders documented in this encounter [facility] note* Diagnosis Nonrheumatic aortic valve stenosis- Primary Aortic valve disorders documented in this encounter [facility] note* Diagnosis Nonrheumatic aortic valve stenosis Aortic valve disorders documented in this encounter [facility] note* Diagnosis Nonrheumatic aortic valve stenosis- Primary Aortic valve disorders documented in this encounter [facility] note* Diagnosis Nonrheumatic aortic valve stenosis- Primary Aortic valve disorders documented in this encounter [facility] note* Diagnosis Personal history of DVT (deep vein thrombosis)- Primary Personal history of venous thrombosis and embolism [facility] Diagnosis Nonrheumatic aortic valve stenosis- Primary Aortic valve disorders Aortic valve stenosis, etiology of cardiac valve disease unspecified documented in this encounter [facility] note* Diagnosis Nonrheumatic aortic valve stenosis- Primary Aortic valve disorders Aortic valve disorder Aortic valve disorders Aortic valve stenosis, etiology of cardiac valve disease unspecified documented in this encounter [facility] note* Diagnosis Encounter for preoperative anesthesiology assessment for cardiac surgery- Primary Aortic valve stenosis, etiology of cardiac valve disease unspecified documented in this encounter [facility] note* Diagnosis Nonrheumatic aortic valve stenosis- Primary Aortic valve disorders Aortic valve stenosis, etiology of cardiac valve disease unspecified documented in this encounter [facility] note* Diagnosis Nonrheumatic aortic valve stenosis Aortic valve disorders Aortic valve disorder Aortic valve disorders Aortic valve stenosis, etiology of cardiac valve disease unspecified documented in this encounter [facility] note* Diagnosis Personal history of DVT (deep vein thrombosis)- Primary Personal history of venous thrombosis and embolism Aortic valve stenosis, etiology of cardiac valve disease unspecified documented in this encounter [facility] note* Diagnosis Nonrheumatic aortic valve stenosis- Primary Aortic valve disorders [facility] Diagnosis Nonrheumatic aortic valve stenosis- Primary Aortic valve disorders S/P TAVR (transcatheter aortic valve replacement) Heart valve replaced by other means Chronic diastolic heart failure (HCC) Chronic diastolic heart failure documented in this encounter [facility] note* Diagnosis Disseminated histoplasmosis- Primary Histoplasmosis, unspecified [...] antibiotics Counseling, unspecified documented [facility]* Diagnosis Medicare annual wellness visit, subsequent- [...] by other means [facility] Diagnosis Chronic heart failure with preserved ejection fraction (HCC)- Primary documented [facility] this [facility]* Diagnosis COPD without exacerbation (HCC) [facility]* Diagnosis Rheumatoid arthritis involving multiple sites with positive rheumatoid factor (HCC) Low back pain with right-sided sciatica, unspecified back pain laterality, unspecified chronicity [facility]* Diagnosis Rheumatoid arthritis involving multiple sites with positive rheumatoid factor (HCC) Low back pain with right-sided sciatica, unspecified back pain laterality, unspecified chronicity [facility]* Diagnosis Personal history of DVT [...] of respiratory system documented [facility]* Diagnosis S/P TAVR (transcatheter aortic valve [...] of respiratory system documented [facility]* Diagnosis Personal history of DVT (deep vein thrombosis)- Primary Personal history of venous thrombosis and embolism documented [facility] this [facility]* Diagnosis Herpes zoster without complication- Primary Herpes zoster without mention of complication Skin tear of left upper arm without complication, initial encounter Contusion of right thumb without damage to nail, subsequent encounter Chronic anticoagulation Long-term (current) use of 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 Closed fracture of left wrist, sequela Contusion of right upper extremity, subsequent encounter documented in this encounter [facility] Author Laine Veras [facility] March 26, 2023 4:04pm Note Date/Time March 26, 2023 4 :05pm [facility] Medical Records Department [address] [place] [address] H&P Exam - Hospitalist 03/26/23 1551 MR#: [id number] Acct: [id number] Name: HAYDEE BUSTAMANTE Rep #:[id number] : 1945 77 From: Laine Veras MD PCP: Dr. Claudine Durán MD Status:AD M [facility] Location: [place] [address] [facility] Date of Admission: 03/26/23 Date of Service: 03/26/23 Chief Complaint: Confusion, shortness of breath HPI Narrative HAYDEE BUSTAMANTE, is a 77-year-old female history of hypertension, GERD, RA, PE, severe aortic stenosis and moderate pericardial effusion, histoplasmosis [facility] 03/26/2023 with shortness of breath andinability to care for self at home. Recently seen 03/21/2023 in [place] ED and transferred to [facility] due to concern for bowel perforation which [...] outpatient basis. She was just discharged from [facility] yesterday and today legs are weeping and she is urinating on herself. She was discharged home on Cipro and Flagyl and itraconazole twice daily as well as 4 more days of dexamethasone and given Imodium for diarrhea. She was instructed to hold her hydrochlorothiazide and irbesartan due to kidney function. In [facility] ED patient 96% on room [...] reports that she got home yesterday from [facility] and was talking about the fact that [...] oriented but very hard to direct inconversation. [facility] Medical History (Updated 03/26/23 @ 15:59 by [...] Q24H 03/19/23 [History Last Taken Unknown] vitamins A,C,X-iblt-iqgmoe 2,148 mcg-113 mg-45 mg-17.4 mg tablet (PreserVision [...] 80.3 H, Lymph % (Auto) 6.3 L, [place] % (Auto) 9.6, Eos % (Auto) 0.0, [...] for bowel perf treated conservatively -Treated at [facility] -On cipro/flagyl, will continue this # Disseminated histoplasmosis -Continue itraconazole twice daily -Patient to follow-up with a Dr. Hart in 3 months # Recent COVID-19 -4 more days of dexamethasone -Tested positive here at the end of February #Hx and mod pericardial effusion -Seen at [facility] and pt advised to f/u outpt [...] Veras MD Charges/Coding Visit Charges Inpatient E&M: 29180 Init Hosp L2 03/26/23 1604 <Electronically signed by Laine Veras MD> Cosigner Signature (if applicable): CC: Dr. Claudine Durán MD; Dr. Laine Veras MD~ Signed [facility] Work Phone: History and physical note Author Laine Veras [facility] March 31, 2023 8:59pm Note Date/Time March 31, 2023 8:20pm [facility] Medical Records Department [address] [place] [address] H&P Exam - Hospitalist 03/31/232011 MR#: [id number] Acct: [id number] Name: HAYDEE BUSTAMANTE Rep #:[id number] : 1945 77 From: Laine Veras MD PCP: Dr. Claudine Durán MD Status:AD M IN Location: [facility] [id number] HPI - General General Date of Admission: 03/31/23 Date of Service: 03/31/23 Chief Complaint: BLE edema and weeping HPI Narrative HAYDEE BUSTAMANTE, is a 77-year-old female history of COPD, Severe . GERD. DVT and PEon Coumadin, histoplasmosis of the lung, RA who presented to [facility] ED 03/31/2023 with bilateral lower extremity edema. She was seen here 03/28/2023 with lower extremity edema. She was initially seen here 03/26/2023 for shortness of breath and inability to care for herself at home after a recent hospital stay at [facility] from which she was discharged on Cipro [...] is unsure if she's taking her coumadin [facility] Medical History (Updated 03/31/23 @ 20:42 by [...] Q24H 03/19/23 [History Last Taken Unknown] vitamins A,C,C-fxre-iuuqod 2,148 mcg-113 mg-45 mg-17.4 mg tablet (PreserVision [...] 90.8 H, Lymph % (Auto) 3.0 L, [place] % (Auto) 5.0, Eos % (Auto) 0.1, [...] for bowel perf treated conservatively -Treated at [facility] -s/p cipro and flagyl, no present abd complaints # Disseminated histoplasmosis -Continue itraconazole twice daily -Patient to follow-up with a Dr. Hart in 3 months # Recent COVID-19 -Tested positive here end of February -No resp complaints #Hx COPD -Continue inhalers #Hx and mod pericardial effusion -Seen at [facility] and pt advised to f/u outpt [...] documentation, 78Minutes Charges/Coding Visit Charges Inpatient E&M: 71762 Init Hosp L3 03/31/232058 <Electronically signed by Laine Veras MD> Cosigner Signature (if applicable): CC: Dr. Claudine Durán MD; Dr. Laine Veras MD~ Signed [facility] Work Phone: History and physical note Author Erasom House [facility] Note Date/Time August 23, 2024 11:12 am [facility] Medical Records Department [address] [place] [address] H&P Exam - Hospitalist 08/23/24 1023 MR#: [id number] Acct: [id number] Name: HAYDEE BUSTAMANTE Rep #:[id number] : 1945 79 From: Erasmo Castañeda PCP: Dr. Claudine Durán MD Status:AD M [facility] Location: MA3 GV411-6 HPI - General General Date of Admission: [...] x-ray done in the ED were reviewed. [facility] Medical History Hypertension GERD (gastroesophageal reflux disease) [...] suppl ement 03/19/23 10/01/23 History tablet) vitamins A,C,Y-pvbp-ckkxuf 2,148 2 tab PO BID eye heal [...] Rx (Voltaren Arthritis Pain) #100 grams omega 3-neq-ghr-fish oil 1,200 mg 1 cap PO DAILY [...] (Auto) 82.3 H, Lymph % (Auto) 8.1L, Desoto % (Auto) 8.6, Eos % (Auto) 0.1, [...] distal radius with intra-articular extension. Reading Location: [facility] Brain CT 08/23/24 08:06 IMPRESSION: 1. Generalized brain atrophy. 2. Small vessel ischemic/degenerative changes. 3. No acute intracranial hemorrhage, midline shift or mass effect. If symptoms persist, further evaluation with MRI is recommended. Reading Location: [facility] Assessment & Plan Assessment/Plan (1) Closed fracture of distal end of left radius: (2) Closed head injury without concussion: PLAN: Plan This 72-year-old female was brought to ED when she fell down, mechanism unclear resulting into left wrist fracture. 1. Acute debility of ADL due to closed fracture of distal end of left radius/Colles' fracture: [facility] of[facility]-ray left wrist x-ray reviewed shows comminuted impacted fracture of distal radius with intra-articular extension. ED patient is splinted in the left wristbut she has trouble in functioning and doing her house chores as she lives alone. Orthopedic surgeon Dr. Peña consulted by ED physician. Pain control PT [...] shock if needed Total time spent in kuva-xf-kyxo encounter in discussion of advanced directive 17 minutes. Laboratory Results 08/23/24 07:45: WBC 7.9, RBC 3.52 L, Hgb 11.3 L, Hct 33.9 L, MCV 96.3, MCH 32.1 H, MCHC 33.3, RDW Std Deviation 58.6 H, RDW Coeff of Catarino 17.0 H, Plt Count 182, MPV 10.9, Immature Gran % (Auto) 0.500, Neut % (Auto) 82.3 H, Lymph % (Auto) 8.1L, [place] % (Auto) 8.6, Eos % (Auto) 0.1, [...] distal radius with intra-articular extension. Reading Location: [facility] Brain CT 08/23/24 08:06 IMPRESSION: 1. Generalized brain atrophy. 2. Small vessel ischemic/degenerative changes. 3. No acute intracranial hemorrhage, midline shift or mass effect. If symptoms persist, further evaluation with MRI is recommended. Reading Location: [facility] Charges/Coding Visit Charges Inpatient E&M: 94747 Init Hosp L3 Procedures Hospitalists Procedures: 58743 Advncd Care Plan 30 Min 08/23/24 1112 <Electronically signed by Erasmo House MD> Cosigner Signature (if applicable): CC: Dr. Claudine Durán MD; Dr. Erasmo House MD~ Signed [facility] Work Phone: Hospital Discharge instructions Additional Instructions [...] higher or systolic number then stop the medication.[facility] Work Phone: Hospital Discharge instructionsAdditional Instructions Your [...] if your symptoms worsen or new symptoms develop.[facility] Work Phone: Reason for referral (narrative)* Outpatient Procedure (Routine) - Authorized Specialty Diagnoses / Procedures Referred By Divya t Referred To Contact [facility] Diagnoses Aortic stenosis with bicuspid valve Essential hypertension Procedures ECHO ECHO TTHRC R-T 2D W/WOM-MODE COMPL SPEC&COLR D William Messina DO [address] [place] [address] [address] Referral ID Status Reason Start Date Expiration Date Visits Requested Visits Authorized [id number] Authorized Auto-Generat ed Referral 08/12/2021 08/12/2022 1 1 * Outpatient Procedure (Routine) - Closed Specialty Diagnoses / Procedures Referred By Divya t Referred To Contact [facility] Diagnoses Aortic stenosis with bicuspid valve Essential hypertension Procedures ECG COMPLETE ECG ROUTINE ECG W/LEAST 12 LDS W/I&R William Messina [address] [place] [address] [place] [id number] Referral ID Status Reason Start Date Expiration Date V isits Requested Visits Authorized [id number] Closed Auto-Generate d Referral 08/12/2021 08/12/2022 1 1 [facility] for referral (narrative)* Diagnostic Procedure Only (Routine) - Closed Specialty Diagnoses / Procedures Referred By Divya Referred To Contact [facility] Diagnoses Ulcer of toe of left foot, limited to breakdown of skin (HCC) Hammer toe of left foot Procedures XR FOOT GENERAL 3V AP/LAT/OBL LEFT RADEX FOOT COMPLETE MINIMUM 3 VIEWS Chacho Louise [address] [place] [address] X[facility] Imaging Referral ID Status Reason Start Date Expiration Date V isits Requested Visits Authorized [id number] Closed Auto-Generate d Referral 10/18/2021 11/17/2022 1 1 [facility] for referral (narrative)* Diagnostic Procedure Only (Routine) - Closed Specialty Diagnoses / Procedures Referred By Francoisac t Referred To Contact [facility] Diagnoses Ulcer of toe of left foot, limited to breakdown of skin (HCC) Hammer toe of left foot Procedures XR FOOT GENERAL 3V AP/LAT/OBL LEFT RADEX FOOT COMPLETE MINIMUM 3 VIEWS Chacho Louise [address] [place] [address] Xr Imaging Referral ID Status Reason Start Date Expiration Date V isits Requested Visits Authorized [id number] Closed Auto-Generate d Referral 10/18/2021 11/17/2022 1 1 [facility] for referral (narrative)* Outpatient Procedure (Routine) - Authorized Specialty Diagnoses / Procedures [facility] Diagnoses Aortic stenosis with bicuspid valve Procedures ECHO ECHO TTHRC R-T 2D W/WOM-MODE COMPL SPEC&COLR D Rachelle Schulte, SEAM SEWER.AGENT BASED MODELER [address] [address] [facility] [address] [place] [address] Referral ID Status Reason Start Date Expiration Date Visits Requested Visits Authorized [id number] Authorized Auto-Generat ed Referral 08/29/2022 08/29/2023 1 1 [facility] for referral (narrative)* Diagnostic Procedure Only (Routine) - Authorized Specialty Diagnoses / Procedures [facility] Referred To Contact [facility] Diagnoses Encounter for screening mammogram for breast cancer Procedures SABINO SCREENING W ALIZE SCREENING DIGITAL BREAST TOMOSYNTHESIS BI SCREENING MAMMOGRAPHY BI 2-VIEW BREAST INC Jimbo Egan, SEAM SEWER.MUSHROOM GROWTH MEDIA MIXER [address] [place] [address] [facility] [address] [place] [address] Referral ID Status Reason Start Date Expiration Date Visits Requested Visits Authorized [id number] Authorized Auto-Generat ed Referral 10/27/2022 11/26/2023 1 1 * Diagnostic Procedure Only (Routine) - Pending Review Specialty Diagnoses / Procedures Referred By Divya t Referred To Contact [facility] Diagnoses Encounter for screening mammogram for breast cancer Procedures SABINO SCREENING SCREENING MAMMOGRAPHY BI 2-VIEW BREAST INC CAD Jimbo Swanson APRN.MUSHROOM GROWTH MEDIA MIXER [address] [place] [address] [facility] [address] [place] [address] Referral ID Status Reason Start Date Expiration Date Visits Requested Visits Authorized [id number] Pending Review Auto-Generat ed Referral 10/27/2022 11/26/2023 1 1 [facility] for referral (narrative)* Diagnostic Procedure Only (Routine) - Closed Specialty Diagnoses / Procedures Referred By Divya t Referred To Contact [facility] Diagnoses Encounter for screening mammogram for breast cancer Procedures SABINO SCREENING W ALIZE SCREENING DIGITAL BREAST TOMOSYNTHESIS BI SCREENING MAMMOGRAPHY BI 2-VIEW BREAST INC CAD Jimbo Swanson APRN.MUSHROOM GROWTH MEDIA MIXER [address] [place] [address] [facility] [address] [place] [address] Referral ID Status Reason Start Date Expiration Date V isits Requested Visits Authorized [id number] Closed Auto-Generate d Referral 10/27/2022 11/26/2023 1 1 [facility] for referral (narrative)* Outpatient Procedure (Urgent) - Authorized Specialty Diagnoses / Procedures Referred By Divya t Referred To Contact [facility] Diagnoses Acute pain of right knee Pain and swelling of right lower leg Procedures US LEG VEIN DVT UNL VAS LAB DUP-SCAN XTR VEINS UNILATERAL/LIMITED STUDY Jimbo Swanson APRN.MUSHROOM GROWTH MEDIA MIXER [address] [place] [address] [facility] [address] [place] [address] Referral ID Status Reason Start Date Expiration Date Visits Requested Visits Authorized [id number] Authorized Auto-Generat ed Referral 07/10/2023 07/09/2024 1 1 [facility] for referral (narrative)* Diagnostic Procedure Only (Routine) - Pending Review Specialty Diagnoses / Procedures Referred By Contac t Referred To Contact XR IMAGING Diagnoses Right knee pain, unspecified chronicity Procedures XR LEG FRONTAL HIP TO ANKLE MECHANICAL AXIS BONE LENGTH STUDIES London Short PA-C [address] [place] [address] [place] [address] Referral ID Status Reason Start Date Expiration Date Visits Requested Visits Authorized [id number] Pending Review Auto-Generat ed Referral 07/18/2023 08/15/2024 1 1 * Diagnostic Procedure Only (Routine) - Pending Review Specialty Diagnoses / Procedures Referred By Contac t Referred To Contact XR IMAGING Diagnoses Right knee pain, unspecified chronicity Procedures XR KNEE GENERAL 4V AP BOTH/PA BOTH/LAT/MERC RIGHT RADIOLOGIC EXAM KNEE COMPLETE 4/MORE VIEWS London Short PA-C [address] [place] [address] [place] [address] Referral ID Status Reason Start Date Expiration Date Visits Requested Visits Authorized [id number] Pending Review Auto-Generat ed Referral 07/18/2023 08/15/2024 1 1 [facility] for referral (narrative)* Outpatient Procedure (Routine) - Pending Review Specialty Diagnoses / Procedures Referred By Contac t Referred To Contact [facility] Diagnoses Nonrheumatic aortic valve stenosis Mitral valve stenosis, non-rheumatic Essential hypertension Pericardial effusion (noninflammatory) Procedures ECHO LIMITED ECHO TRANSTHORAC R-T 2D W/WO M-MODE REC COMP William Messina DO [address] [place] [address] [address] Referral ID Status Reason Start Date Expiration Date Visits Requested Visits Authorized [id number] Pending Review Auto-Generat ed Referral 08/27/2023 08/26/2024 1 1 [facility] for referral (narrative)* Outpatient Procedure (Routine) - Authorized Specialty Diagnoses / Procedures Referred By Contac t Referred To Contact [facility] Diagnoses Pericardial effusion Procedures ECHO LIMITED ECHO TRANSTHORAC R-T 2D W/WO M-MODE REC COMP Bibi Alegria SEAM SEWER.AGENT BASED MODELER [address] [place] [address] [place] [phone] Referral ID Status Reason Start Date Expiration Date Visits Requested Visits Authorized [id number] Authorized Auto-Generat ed Referral 4 10/17/2024 1 1 [facility] for referral (narrative)* Outpatient Procedure (Routine) - New Request Specialty Diagnoses / Procedures Referred By Contac t Referred To Contact [facility] Diagnoses Nonrheumatic aortic valve stenosis Aortic valve disorder Procedures ECG COMPLETE ECG ROUTINE ECG W/LEAST 12 LDS W/I&R Monica Aguila APRN.AGENT BASED MODELER [address] [place] [phone] [place] [id number] [place] [phone] Referral ID Status Reason Start Date Expiration Date Visits Requested Visits Authorized [id number] New Request Auto-Generat ed Referral 4 01/07/2025 1 1 * Outpatient Procedure (Routine) - New Request Specialty Diagnoses / Procedures Referred By Contac t Referred To Contact [facility] Diagnoses Nonrheumatic aortic valve stenosis Aortic valve disorder Procedures ECHO ECHO TTHRC R-T 2D W/WOM-MODE COMPL SPEC&COLR D Monica Aguila APRN.AGENT BASED MODELER [address] [place] [address] [facility] [address] [place] [address] Referral ID Status Reason Start Date Expiration Date Visits Requested Visits Authorized [id number] New Request Auto-Generat ed Referral 4 01/07/2025 1 1 * Diagnostic Procedure Only (Routine) - New Request Specialty Diagnoses / Procedures Referred By Divya reis Referred To Contact [facility] Diagnoses Nonrheumatic aortic valve stenosis Procedures NM SPECT/CT CARDIAC AMYLOID RP LOCLZJ MARY SPECT W/CT 1 AREA 1 DAY IMAGING Monica Aguila APRN.AGENT BASED MODELER [address] [place] [phone] [facility] [address] [place] [address] Referral ID Status Reason Start Date Expiration Date Visits Requested Visits Authorized [id number] New Request Auto-Generat ed Referral 4 02/06/2025 1 1 * MRI/CT (Routine) - New Request Specialty Diagnoses / Procedures Referred By Divya reis Referred To Contact CT IMAGING Diagnoses Nonrheumatic aortic valve stenosis Encounter for preprocedural cardiovascular examination Procedures CTA CHEST/ABD/PEL (GATED) W IVCON CT ANGIOGRAPHY CHEST W/CONTRAST/NONCONTRAST CT ANGIO ABD&PLVIS CNTRST MTRL W/WO CNTRST Monica aZvala APRN.AGENT BASED MODELER [address] [place] [address] Ct [id number] Referral ID Status Reason Start Date Expiration Date Visits Requested Visits Authorized [id number] New Request Auto-Generat ed Referral 4 02/06/2025 1 1 * Outpatient Procedure (Routine) - New Request Specialty Diagnoses / Procedures Referred By Francoisac t Referred To Contact [facility] Diagnoses Nonrheumatic aortic valve stenosis Procedures LUNG DIFFUSION CAPACITY (DLCO) DIFFUSING CAPACITY Monica Aguila APRN.AGENT BASED MODELER [address] [place] [address] [address] Referral ID Status Reason Start Date Expiration Date Visits Requested Visits Authorized [id number] New Request Auto-Generat ed Referral 4 02/06/2025 1 1 * Outpatient Procedure (Routine) - New Request Specialty Diagnoses / Procedures Referred By Francoisac t Referred To Contact [facility] Diagnoses Nonrheumatic aortic valve stenosis Procedures SPIROMETRY BASELINE ONLY SPMTRY W/VC EXPIRATORY MILTON W/WO MXML VOL VNTJ Monica Aguila APRN.AGENT BASED MODELER [address] [place] [address] [place] [id number] Referral ID Status Reason Start Date Expiration Date Visits Requested Visits Authorized [id number] New Request Auto-Generat ed Referral 4 02/06/2025 1 1 [facility] for referral (narrative)* Diagnostic Procedure Only (Routine) - Closed Specialty Diagnoses / Procedures Referred By Divya t Referred To Contact MOLECULAR & FUNCTIONAL IMAGING Diagnoses Nonrheumatic aortic valve stenosis Procedures NM SPECT/CT CARDIAC AMYLOID RP LOCLZJ MARY SPECT W/CT 1 AREA 1 DAY IMAGING Monica Aguila APRN.AGENT BASED MODELER [address] [place] [address] Molecular & Functional Imaging [address] [place] [phone] Referral ID Status Reason Start Date Expiration Date V isits Requested Visits Authorized [id number] Closed Auto-Generate d Referral 01/08/2024 02/06/2025 1 1 [facility] for referral (narrative)* Transition of Care (Routine) - Authorized Specialty Diagnoses / Procedures Referred By Contac t Referred To Contact [facility] Procedures CARDIOVASCULAR MEDICINE OP FOLLOW UP APPT ORDER Monica Aguila APRN.CNP [address] [place] [address] Phone: tel: fax: [facility] V[facility] [place] [phone] Referral ID Status Reason Start Date Expiration Date Visits Requested Visits Authorized [id number] Authorized PCP Requested Referral 04/30/2024 04/30/2025 1 1 [facility] for referral (narrative)* Transition of Care (Routine) - Authorized Specialty Diagnoses / Procedures Referred By Contac t Referred To Contact [facility] Procedures CARDIOVASCULAR MEDICINE OP [place] [address] [place] [address] Phone: tel: [facility] [address] [place] [id number] Referral ID Status Reason Start Date Expiration Date Visits Requested Visits Authorized [id number] Authorized PCP Requested Referral 05/05/2024 05/05/2025 1 1 [facility] for referral (narrative)No reason for referral information availableWSelect [facility] Work Phone: [facility] (narrative)* Transition of Care (Routine) - Authorized Specialty Diagnoses / Procedures Referred By Divya t Referred To Contact [facility] Procedures CARDIOVASCULAR MEDICINE OP FOLLOW UP APPT ORDER Brissa Chester APRN.AGENT BASED MODELER [address] [place] [address] Phone: tel: fax: [facility] [place] [address] [place] [address] Referral ID Status Reason Start Date Expiration Date Visits Requested Visits Authorized [id number] Authorized PCP Requested Referral 07/22/2024 07/22/2025 1 1 [facility] for visit Narrative* Diagnostic Procedure Only (Routine) - Closed Specialty Diagnoses / Procedures Referred By Divya t Referred To Contact XR IMAGING Diagnoses Ulcer of toe of left foot, limited to breakdown of skin (HCC) Hammer toe of left foot Procedures XR FOOT GENERAL 3V AP/LAT/OBL LEFT RADEX FOOT COMPLETE MINIMUM 3 VIEWS Chacho Louise [address] [place] [address] Xr Imaging Referral ID Status Reason Start Date Expiration Date V isits Requested Visits Authorized [id number] Closed Auto-Generate d Referral 10/18/2021 11/17/2022 1 1 [facility] for visit Narrative* Diagnostic Procedure Only (Routine) - Closed Specialty Diagnoses / Procedures Referred By Divya t Referred To Contact BR IMAGING Diagnoses Encounter for screening mammogram for breast cancer Procedures SABINO SCREENING W ALIZE SCREENING DIGITAL BREAST TOMOSYNTHESIS BI SCREENING MAMMOGRAPHY BI 2-VIEW BREAST INC CAD Jimbo Swanson, SEAM SEWER.MUSHROOM GROWTH MEDIA MIXER [address] [place] [address] Br Imaging [address] [place] [address] Referral ID Status Reason Start Date Expiration Date V isits Requested Visits Authorized [id number] Closed Auto-Generate d Referral 10/27/2022 11/26/2023 1 1 [facility] for visit Narrative* Diagnostic Procedure Only (Urgent) - Closed Specialty Diagnoses / Procedures Referred By Francoisac t Referred To Contact XR IMAGING Diagnoses Hip pain, acute, left Procedures XR HIP GENERAL 3V PELV/AP/LAT LEFT RADEX HIP UNILATERAL WITH PELVIS 2-3 VIEWS Ernie Belcher SEAM SEWER.AGENT BASED MODELER [address] [place] [address] [place] [address] Referral ID Status Reason Start Date Expiration Date V isits Requested Visits Authorized [id number] Closed Auto-Generate d Referral 12/31/2021 01/30/2023 1 1 [facility] for visit Narrative* Diagnostic Procedure Only (Routine) - Closed Specialty Diagnoses / Procedures Referred By Contac t Referred To Contact MOLECULAR & FUNCTIONAL IMAGING Diagnoses Nonrheumatic aortic valve stenosis Procedures NM SPECT/CT CARDIAC AMYLOID RP LOCLZJ MARY SPECT W/CT 1 AREA 1 DAY IMAGING Monica Aguila, SEAM SEWER.AGENT BASED MODELER [address] [place] [address] Molecular & Functional Imaging [address] [place] [address] Referral ID Status Reason Start Date Expiration Date V isits Requested Visits Authorized [id number] Closed Auto-Generate d Referral 01/08/2024 02/06/2025 1 1 [facility] Summary Purpose Family History No Family History Records FoundNo Family History Records FoundNo Family History Records FoundNo Family History Records FoundNo Family History Records FoundNo Family History Records Found Advance Directives No Advanced Directives Records FoundDocuments on File Type Date Recorded Patient Plastic Dolls Mold Filler Expl anation Advance Directive(s) 02/25/2018 1:19 PM Date Activated Date Inactivated Comments 03/22/2023 3:19 PM 03/25/2023 9:30 PM Question Answer Comments Full Code Order Discussed With: PatientSurrogate Decision Maker Surrogate Decision Maker Name: Milena Gerardo and José Miguel Chang (Friends) Date Activated Date Inactivated Comments 03/02/2018 6:22 PM 03/03/2018 4:33 PM Question Answer Comments Full Code Order Discussed With: Patient Latest Code Status on File Code Status Date Activated Date Inactivated Comments Full Code 03/02/2018 6:22 PM 03/03/2018 4:33 PM Full Code Order Discussed With: Patient Documents on File Type Date Recorded Patient Plastic Dolls Mold Filler Expl anation Advance Directive(s) 03/24/2019 12:16 PM Advance Directive(s) 03/02/2018 11:28 AM Advance Directive(s) 02/25/2018 1:11 PM Advance Directive(s) 02/25/2018 1:19 PM Advance Directive(s) 01/25/2018 9:15 AM Advance Directive(s) 07/30/2017 2:22 PM Documents on File Type Date Recorded Patient Plastic Dolls Mold Filler Expl anation Advance Directive(s) 03/24/2019 12:16 PM Advance Directive(s) 03/02/2018 11:28 AM Advance Directive(s) 02/25/2018 1:11 PM Advance Directive(s) 02/25/2018 1:19 PM Advance Directive(s) 01/25/2018 9:15 AM Advance Directive(s) 07/30/2017 2:22 PM Latest Code Status on File Code Status Date Activated Date Inactivated Comments Full Code 03/02/2018 6:22 PM 03/03/2018 4:33 PM Documents on File Type Date Recorded Patient Plastic Dolls Mold Filler Expl anation Advance Directive(s) 02/25/2018 1:19 PM [...] Will No March 19 10:06am Power of Dopeman No March 19, 2023 10:06am Latest Code [...] Will No March 28 4:31pm Power of Dopeman No March 28, 2023 4:31pm Name of Medical Power of Dopeman diallo johanndiandra March 26, 2023 5:06pm Advance Directive Response Recorded Date/ Time Living Will No March 31 5:01pm Power of Dopeman No March 31, 2023 5:01pm Name of Medical Power of Dopeman diallo johanndiandra March 26, 2023 5:06pm Advance Directive Response Recorded Date/ Time Name of Medical Power of Dopeman Milena Gerardo and Padmini Chang March 31, 2023 9:38pm Living Will Yes April 04 024 4:12pm Power of Dopeman Yes April 04, 2023 4:12pm Name of Medical Power of Dopeman diallo jose g March 26, 2023 5:06pm Advance Directive Response Recorded Date/ Time Name of Medical Power of Dopeman Milena Gerardo and Padmini Chang March 31, 2023 9:38pm Name of Medical Power of Dopeman diallo johanndiandra March 26, 2023 5:06pm Name of Medical Power of Dopeman Suzie Gerardo (Milena), friend April 09, 2023 2:27pm Living Will Yes April 09 024 2:27pm Power of Dopeman Yes April 09, 2023 2:27pm Advance Directive Response Recorded Date/ Time Name of Medical Power of Dopeman Milena Gerardo and Padmini Chang March 31, 2023 10:38pm Name of Medical Power of Dopeman diallo johanndiandra March 26, 2023 6:06pm Name of Medical Power of Dopeman Suzie Ag), friend April 09, 2023 3:27pm Living Will Yes April 09 024 3:27pm Power of Dopeman Yes April 09, 2023 3:27pm Date Activated Date Inactivated Comments 03/22/2023 3:19 PM 03/25/2023 9:30 PM Question Answer Comments Full Code Order Discussed With: PatientSurrogate Decision Maker Surrogate Decision Maker Name: Milena Gerardo and José Miguel Chang (Friends) Date Activated Date Inactivated Comments 03/02/2018 6:22 PM 03/03/2018 4:33 PM Question Answer Comments Full Code Order Discussed With: Patient Advance Directive Response Recorded Date/ Time Advance Directives on File Yes May 28, 2024 8:37am Living Will Yes May 28, 2024 8:37am Do you have a Healthcare Power of Dopeman? Yes May 28, 2024 8:37am Advance Directive Response Recorded Date/ Time Advance Directives on File Yes May 28, 2024 8:37am Living Will Yes May 28, 2024 8:37am Do you have a Healthcare Power of Dopeman? Yes May 28, 2024 8:37am Do you have a Healthcare Power of Dopeman? Yes August 23, 2024 11:43am Name of Medical Power of Dopeman Milena Gerardo August 23, 2024 7:33am Advance Directive Response Recorded Date/ Time Do you have a Healthcare Power of Dopeman? Yes August 23, 2024 11:43am Name of Medical Power of Dopeman Milena Gerardo August 23, 2024 7:33am Advance Directive Response Recorded Date/ Time Do you have a Healthcare Power of Dopeman? Yes August 23, 2024 11:43am Name of Medical Power of Dopeman Milena Gerardo August 23, 2024 7:33am Do you have a Healthcare Power of Dopeman? Yes October 19, 2024 12:42am Reason for Referral Specialty Diagnoses / Procedures Referred By Contac t Referred To Contact CT IMAGING Diagnoses Lung nodules Procedures CT CHEST WO IVCON DIAGNOSTIC COMPUTED TOMOGRAPHY THORAX W/O Florence Duncan MD [address] [place] [address] Ct Imaging Referral ID Status Reason Start Date Expiration Date Visits Requested Visits Authorized [id number] Authorized Auto-Generat ed Referral 2 12/29/2022 1 1 Specialty Diagnoses / Procedures Referred By Contac t Referred To Contact CT IMAGING Diagnoses Lung nodules Bronchiectasis without complication (HCC) Procedures CT CHEST WO IVCON DIAGNOSTIC COMPUTED TOMOGRAPHY THORAX W/O Florence Duncan MD [address] [place] [address] Ct Imaging Referral ID Status Reason Start Date Expiration Date Visits Requested Visits Authorized [id number] Authorized Auto-Generat ed Referral 01/23/2023 08/23/2023 1 1 Specialty Diagnoses / Procedures Referred By Contac t Referred To Contact CT IMAGING Diagnoses Lung nodules Procedures CT CHEST WO IVCON DIAGNOSTIC COMPUTED TOMOGRAPHY THORAX W/O Florence Duncan MD [address] [place] [address] [place] [address] Referral ID Status Reason Start Date Expiration Date V isits Requested Visits Authorized [id number] Closed Auto-Generate d Referral 11/29/2021 12/29/2022 1 1 Specialty Diagnoses / Procedures Referred By Contac t Referred To Contact Claudine Durán MD [address] [place] [address] Referral ID Status Reason Start Date Expiration Date Visits Re quested Visits Authorized [id number] Closed 1 1 Specialty Diagnoses / Procedures Referred By Contac t Referred To Contact Orthopedics Diagnoses Rheumatoid arthritis involving multiple sites with positive rheumatoid factor (HCC) Pain and swelling of right knee Procedures CONSULT TO [facility]OPAEDICS OFFICE[facility] 60 [facility]UTES Jimbo Swanson, SEAM SEWER.MUSHROOM GROWTH MEDIA MIXER [address] [place] [address] Referral ID Status Reason Start Date Expiration Date Visits Requested Visits Authorized [id number] Authorized PCP Requested Referral 07/13/2023 07/12/2024 1 1 Specialty Diagnoses / Procedures Referred By Contac t Referred To Contact CT IMAGING Diagnoses Disseminated histoplasmosis Procedures CT CHEST WO IVCON DIAGNOSTIC COMPUTED TOMOGRAPHY THORAX W/O CNTREGIT Geno Hart MD [address] [place] [address] [address] [place] [address] Referral ID Status Reason Start Date Expiration Date V isits Requested Visits Authorized [id number] Closed Auto-Generate d Referral 08/30/2023 02/19/2024 1 1 Specialty Diagnoses / Procedures Referred By Contac t Referred To Contact Cardiology Diagnoses Aortic valve stenosis, etiology of cardiac valve disease unspecified Mitral valve stenosis, unspecified etiology Pericardial effusion Procedures CONSULT TO [facility]ARD[facility]OLOGY OFFICE[facility] 60 MINUTES Jimbo Swanson, SEAM SEWER.MUSHROOM GROWTH MEDIA MIXER [address] [place] [address] Referral ID Status Reason Start Date Expiration Date Visits Requested Visits Authorized [id number] Authorized PCP Requested Referral 10/11/2023 10/10/2024 1 1 Specialty Diagnoses / Procedures Referred By Contac t Referred To Contact [facility] Diagnoses Nonrheumatic aortic valve stenosis Nonrheumatic mitral valve stenosis Pericardial effusion Rheumatoid arthritis with positive rheumatoid factor, involving unspecified site (HCC) Histoplasmosis Procedures CARDIOVASCULAR MEDICINE OP FOLLOW UP APPT ORDER Ines Drew MD [address] [place] [id number] [facility] V[facility] [place] [phone] Referral ID Status Reason Start Date Expiration Date Visits Requested Visits Authorized [id number] Ref Not Required PCP Requested Referral 07/07/2024 01/07/2025 1 1 Specialty Diagnoses / Procedures Referred By Contac t Referred To Contact [facility] Procedures CARDIOVASCULAR MEDICINE OP [place]LLOW [place] [address] [place] [address] [facility] [place] [id number] [place] [phone] Referral ID Status Reason Start Date Expiration Date Visits Requested Visits Authorized [id number] Authorized PCP Requested Referral 03/21/2024 03/21/2025 1 1 Specialty Diagnoses / Procedures Referred By Contac t Referred To Contact [facility] [place] Procedures CARDIOVASCULAR MEDICINE OP FOLLOW UP APPT ORDER Monica Aguila, SEAM SEWER.AGENT BASED MODELER [address] [place] [address] Heart [facility] [address] [place] [address] Referral ID Status Reason Start Date Expiration Date Visits Requested Visits Authorized [id number] Authorized PCP Requested Referral 03/25/2024 03/25/2025 1 [...] AND EXTREMITY SWELLING RIGHT LEG SWELLING LABWORK HALFWAY LAB WORK LABWORK Reason for Visit Histoplasmosis [...] AND EXTREMITY SWELLING RIGHT LEG SWELLING LABWORK HALFWAY LAB WORK LABWORK LABWORK HALFWAY LAB WORK Reason for Visit Histoplasmosis History [...] AND EXTREMITY SWELLING RIGHT LEG SWELLING LABWORK HALFWAY LAB WORK LABWORK LABWORK LABWORK HALFWAY LAB WORK Reason for Visit Histoplasmosis History [...] AND EXTREMITY SWELLING RIGHT LEG SWELLING LABWORK HALFWAY LAB WORK LABWORK LABWORK LABWORK HALFWAY LAB WORK LABWORK Reason for Visit Histoplasmosis [...] AND EXTREMITY SWELLING RIGHT LEG SWELLING LABWORK HALFWAY LAB WORK LABWORK LABWORK LABWORK HALFWAY LAB WORK LABWORK HALFWAY LAB WORK Reason for Visit Histoplasmosis History [...] LEG SWELLING ADMISSION EXAM LABWORK ADMISSION EXAM HALFWAY LAB WORK LABWORK LABWORK LABWORK HALFWAY LAB WORK LABWORK LABWORK LABWORK LABWORK HALFWAY LAB WORK LABWORK Reason for Visit Histoplasmosis [...] 10:24 am fallAugust 24, 2024 8:49a m FALL August 25, 2024 6:19p m fallAugust 26, 2024 [...] 0am LABWORK September 29, 2024 5: 00am HALFWAY LAB WORK October 07, 2024 4:00am FALL [...] 6:19p m fallAugust 26, 2024 4:54p m FALL August 27, [...] new concern September 30, 2024 9: 26pm HALFWAY LAB WORK October 07, 2024 4:00am FALL [...] new concern September 30, 2024 9: 26pm HALFWAY LAB WORK October 02, 2024 5:00am HALFWAY LAB WORK October 07, 2024 4:00am LABWORK October 09, 2024 5: 00am New Concern October 14, 2024 1: 55pm FALL October 19, 2024 12 :40am Additional Source Comments INFORMATION SOURCE (unrecogn ized section and content) DATE CREATED AUTHOR 08/15/2017 [facility] DATE CREATED AUTHOR AUTHOR'S ORGANIZ ATION 03/10/2018 [facility] DATE CREATED AUTHOR AUTHOR'S ORGANIZ ATION 09/04/2023 [facility] DATE CREATED AUTHOR AUTHOR'S ORGANIZ ATION 01/07/2024 [facility] DATE CREATED AUTHOR AUTHOR'S ORGANIZ ATION 11/09/2024 [facility] DATE CREATED AUTHOR AUTHOR'S ORGANIZ ATION 11/12/2024 [facility] Source Comments (unrecognize d section and content) In the event this informatio n is protected by the Federal Confidentiality of Alcohol and Drug Abuse Patient Records regulations: The Federal rules restrict any use of the information to criminally investigate or prosecute any alcohol or drug abuse patient.[facility] the event this information is protected by the Federal Confidentiality of Alcohol and Drug Abuse Patient Records regulations: The Federal rules restrict any use of the information to criminally investigate or prosecute any alcohol or drug abuse patient.[facility] the event this information is protected by the Federal Confidentiality of Alcohol and Drug Abuse Patient Records regulations: The Federal rules restrict any use of the information to criminally investigate or prosecute any alcohol or drug abuse patient.[facility] Anderson[facility] the event this information is protected by the Federal Confidentiality of Alcohol and Drug Abuse Patient Records regulations: The Federal rules restrict any use of the information to criminally investigate or prosecute any alcohol or drug abuse patient.[facility] the event this information is protected by the Federal Confidentiality of Alcohol and Drug Abuse Patient Records regulations: The Federal rules restrict any use of the information to criminally investigate or prosecute any alcohol or drug abuse patient.[facility] the event this information is protected by the Federal Confidentiality of Alcohol and Drug Abuse Patient Records regulations: The Federal rules restrict any use of the information to criminally investigate or prosecute any alcohol or drug abuse patient.[facility] AndersonIn the event this information is protected by the Federal Confidentiality of Alcohol and Drug Abuse Patient Records regulations: The Federal rules restrict any use of the information to criminally investigate or prosecute any alcohol or drug abuse patient.[facility] Anderson[facility] the event this information is protected by the Federal Confidentiality of Alcohol and Drug Abuse Patient Records regulations: The Federal rules restrict any use of the information to criminally investigate or prosecute any alcohol or drug abuse patient.[facility] Anderson[facility] the event this information is protected by the Federal Confidentiality of Alcohol and Drug Abuse Patient Records regulations: The Federal rules restrict any use of the information to criminally investigate or prosecute any alcohol or drug abuse patient.[facility] Anderson[facility] the event this information is protected by the Federal Confidentiality of Alcohol and Drug Abuse Patient Records regulations: The Federal rules restrict any use of the information to criminally investigate or prosecute any alcohol or drug abuse patient.[facility] Anderson[facility] the event this information is protected by the Federal Confidentiality of Alcohol and Drug Abuse Patient Records regulations: The Federal rules restrict any use of the information to criminally investigate or prosecute any alcohol or drug abuse patient.[facility] the event this information is protected by the Federal Confidentiality of Alcohol and Drug Abuse Patient Records regulations: The Federal rules restrict any use of the information to criminally investigate or prosecute any alcohol or drug abuse patient.[facility] Anderson[facility] the event this information is protected by the Federal Confidentiality of Alcohol and Drug Abuse Patient Records regulations: The Federal rules restrict any use of the information to criminally investigate or prosecute any alcohol or drug abuse patient.[facility] AndersonIn the event this information is protected by the Federal Confidentiality of Alcohol and Drug Abuse Patient Records regulations: The Federal rules restrict any use of the information to criminally investigate or prosecute any alcohol or drug abuse patient.[facility] Anderson[facility] the event this information is protected by the Federal Confidentiality of Alcohol and Drug Abuse Patient Records regulations: The Federal rules restrict any use of the information to criminally investigate or prosecute any alcohol or drug abuse patient.[facility] Anderson[facility] the event this information is protected by the Federal Confidentiality of Alcohol and Drug Abuse Patient Records regulations: The Federal rules restrict any use of the information to criminally investigate or prosecute any alcohol or drug abuse patient.[facility] AndersonIn the event this information is protected by the Federal Confidentiality of Alcohol and Drug Abuse Patient Records regulations: The Federal rules restrict any use of the information to criminally investigate or prosecute any alcohol or drug abuse patient.[facility] AndersonIn the event this information is protected by the Federal Confidentiality of Alcohol and Drug Abuse Patient Records regulations: The Federal rules restrict any use of the information to criminally investigate or prosecute any alcohol or drug abuse patient.[facility] AndersonIn the event this information is protected by the Federal Confidentiality of Alcohol and Drug Abuse Patient Records regulations: The Federal rules restrict any use of the information to criminally investigate or prosecute any alcohol or drug abuse patient.[facility] AndersonIn the event this information is protected by the Federal Confidentiality of Alcohol and Drug Abuse Patient Records regulations: The Federal rules restrict any use of the information to criminally investigate or prosecute any alcohol or drug abuse patient.[facility] AndersonIn the event this information is protected by the Federal Confidentiality of Alcohol and Drug Abuse Patient Records regulations: The Federal rules restrict any use of the information to criminally investigate or prosecute any alcohol or drug abuse patient.[facility] AndersonIn the event this information is protected by the Federal Confidentiality of Alcohol and Drug Abuse Patient Records regulations: The Federal rules restrict any use of the information to criminally investigate or prosecute any alcohol or drug abuse patient.[facility] AndersonIn the event this information is protected by the Federal Confidentiality of Alcohol and Drug Abuse Patient Records regulations: The Federal rules restrict any use of the information to criminally investigate or prosecute any alcohol or drug abuse patient.[facility] [place]In the event this information is protected by the Federal Confidentiality of Alcohol and Drug Abuse Patient Records regulations: The Federal rules restrict any use of the information to criminally investigate or prosecute any alcohol or drug abuse patient.[facility] [place]In the event this information is protected by the Federal Confidentiality of Alcohol and Drug Abuse Patient Records regulations: The Federal rules restrict any use of the information to criminally investigate or prosecute any alcohol or drug abuse patient.[facility] [place]In the event this information is protected by the Federal Confidentiality of Alcohol and Drug Abuse Patient Records regulations: The Federal rules restrict any use of the information to criminally investigate or prosecute any alcohol or drug abuse patient.[facility] [place]In the event this information is protected by the Federal Confidentiality of Alcohol and Drug Abuse Patient Records regulations: The Federal rules restrict any use of the information to criminally investigate or prosecute any alcohol or drug abuse patient.[facility] [place]In the event this information is protected by the Federal Confidentiality of Alcohol and Drug Abuse Patient Records regulations: The Federal rules restrict any use of the information to criminally investigate or prosecute any alcohol or drug abuse patient.[facility] [place]In the event this information is protected by the Federal Confidentiality of Alcohol and Drug Abuse Patient Records regulations: The Federal rules restrict any use of the information to criminally investigate or prosecute any alcohol or drug abuse patient.[facility] [place]In the event this information is protected by the Federal Confidentiality of Alcohol and Drug Abuse Patient Records regulations: The Federal rules restrict any use of the information to criminally investigate or prosecute any alcohol or drug abuse patient.[facility] [place]In the event this information is protected by the Federal Confidentiality of Alcohol and Drug Abuse Patient Records regulations: The Federal rules restrict any use of the information to criminally investigate or prosecute any alcohol or drug abuse patient.[facility] [place]In the event this information is protected by the Federal Confidentiality of Alcohol and Drug Abuse Patient Records regulations: The Federal rules restrict any use of the information to criminally investigate or prosecute any alcohol or drug abuse patient.[facility] [place]In the event this information is protected by the Federal Confidentiality of Alcohol and Drug Abuse Patient Records regulations: The Federal rules restrict any use of the information to criminally investigate or prosecute any alcohol or drug abuse patient.[facility] [place]In the event this information is protected by the Federal Confidentiality of Alcohol and Drug Abuse Patient Records regulations: The Federal rules restrict any use of the information to criminally investigate or prosecute any alcohol or drug abuse patient.[facility] [place]In the event this information is protected by the Federal Confidentiality of Alcohol and Drug Abuse Patient Records regulations: The Federal rules restrict any use of the information to criminally investigate or prosecute any alcohol or drug abuse patient.[facility] [place]In the event this information is protected by the Federal Confidentiality of Alcohol and Drug Abuse Patient Records regulations: The Federal rules restrict any use of the information to criminally investigate or prosecute any alcohol or drug abuse patient.[facility] [place]In the event this information is protected by the Federal Confidentiality of Alcohol and Drug Abuse Patient Records regulations: The Federal rules restrict any use of the information to criminally investigate or prosecute any alcohol or drug abuse patient.[facility] [place]In the event this information is protected by the Federal Confidentiality of Alcohol and Drug Abuse Patient Records regulations: The Federal rules restrict any use of the information to criminally investigate or prosecute any alcohol or drug abuse patient.[facility] [place]In the event this information is protected by the Federal Confidentiality of Alcohol and Drug Abuse Patient Records regulations: The Federal rules restrict any use of the information to criminally investigate or prosecute any alcohol or drug abuse patient.[facility] [place]In the event this information is protected by the Federal Confidentiality of Alcohol and Drug Abuse Patient Records regulations: The Federal rules restrict any use of the information to criminally investigate or prosecute any alcohol or drug abuse patient.[facility] [place]In the event this information is protected by the Federal Confidentiality of Alcohol and Drug Abuse Patient Records regulations: The Federal rules restrict any use of the information to criminally investigate or prosecute any alcohol or drug abuse patient.[facility] [place]In the event this information is protected by the Federal Confidentiality of Alcohol and Drug Abuse Patient Records regulations: The Federal rules restrict any use of the information to criminally investigate or prosecute any alcohol or drug abuse patient.[facility] [place]In the event this information is protected by the Federal Confidentiality of Alcohol and Drug Abuse Patient Records regulations: The Federal rules restrict any use of the information to criminally investigate or prosecute any alcohol or drug abuse patient.[facility] [place]In the event this information is protected by the Federal Confidentiality of Alcohol and Drug Abuse Patient Records regulations: The Federal rules restrict any use of the information to criminally investigate or prosecute any alcohol or drug abuse patient.[facility] [place]In the event this information is protected by the Federal Confidentiality of Alcohol and Drug Abuse Patient Records regulations: The Federal rules restrict any use of the information to criminally investigate or prosecute any alcohol or drug abuse patient.[facility] [place]In the event this information is protected by the Federal Confidentiality of Alcohol and Drug Abuse Patient Records regulations: The Federal rules restrict any use of the information to criminally investigate or prosecute any alcohol or drug abuse patient.[facility] [place]In the event this information is protected by the Federal Confidentiality of Alcohol and Drug Abuse Patient Records regulations: The Federal rules restrict any use of the information to criminally investigate or prosecute any alcohol or drug abuse patient.[facility] [place]In the event this information is protected by the Federal Confidentiality of Alcohol and Drug Abuse Patient Records regulations: The Federal rules restrict any use of the information to criminally investigate or prosecute any alcohol or drug abuse patient.[facility] [place]In the event this information is protected by the Federal Confidentiality of Alcohol and Drug Abuse Patient Records regulations: The Federal rules restrict any use of the information to criminally investigate or prosecute any alcohol or drug abuse patient.[facility] [place]In the event this information is protected by the Federal Confidentiality of Alcohol and Drug Abuse Patient Records regulations: The Federal rules restrict any use of the information to criminally investigate or prosecute any alcohol or drug abuse patient.[facility] [place]In the event this information is protected by the Federal Confidentiality of Alcohol and Drug Abuse Patient Records regulations: The Federal rules restrict any use of the information to criminally investigate or prosecute any alcohol or drug abuse patient.[facility] [place]In the event this information is protected by the Federal Confidentiality of Alcohol and Drug Abuse Patient Records regulations: The Federal rules restrict any use of the information to criminally investigate or prosecute any alcohol or drug abuse patient.[facility] [place]In the event this information is protected by the Federal Confidentiality of Alcohol and Drug Abuse Patient Records regulations: The Federal rules restrict any use of the information to criminally investigate or prosecute any alcohol or drug abuse patient.[facility] [place]In the event this information is protected by the Federal Confidentiality of Alcohol and Drug Abuse Patient Records regulations: The Federal rules restrict any use of the information to criminally investigate or prosecute any alcohol or drug abuse patient.[facility] [place]In the event this information is protected by the Federal Confidentiality of Alcohol and Drug Abuse Patient Records regulations: The Federal rules restrict any use of the information to criminally investigate or prosecute any alcohol or drug abuse patient.[facility] [place]In the event this information is protected by the Federal Confidentiality of Alcohol and Drug Abuse Patient Records regulations: The Federal rules restrict any use of the information to criminally investigate or prosecute any alcohol or drug abuse patient.[facility] [place]In the event this information is protected by the Federal Confidentiality of Alcohol and Drug Abuse Patient Records regulations: The Federal rules restrict any use of the information to criminally investigate or prosecute any alcohol or drug abuse patient.[facility] [place]In the event this information is protected by the Federal Confidentiality of Alcohol and Drug Abuse Patient Records regulations: The Federal rules restrict any use of the information to criminally investigate or prosecute any alcohol or drug abuse patient.[facility] [place]In the event this information is protected by the Federal Confidentiality of Alcohol and Drug Abuse Patient Records regulations: The Federal rules restrict any use of the information to criminally investigate or prosecute any alcohol or drug abuse patient.[facility] [place]In the event this information is protected by the Federal Confidentiality of Alcohol and Drug Abuse Patient Records regulations: The Federal rules restrict any use of the information to criminally investigate or prosecute any alcohol or drug abuse patient.[facility] [place]In the event this information is protected by the Federal Confidentiality of Alcohol and Drug Abuse Patient Records regulations: The Federal rules restrict any use of the information to criminally investigate or prosecute any alcohol or drug abuse patient.[facility] [place]In the event this information is protected by the Federal Confidentiality of Alcohol and Drug Abuse Patient Records regulations: The Federal rules restrict any use of the information to criminally investigate or prosecute any alcohol or drug abuse patient.[facility] [place]In the event this information is protected by the Federal Confidentiality of Alcohol and Drug Abuse Patient Records regulations: The Federal rules restrict any use of the information to criminally investigate or prosecute any alcohol or drug abuse patient.[facility] [place]In the event this information is protected by the Federal Confidentiality of Alcohol and Drug Abuse Patient Records regulations: The Federal rules restrict any use of the information to criminally investigate or prosecute any alcohol or drug abuse patient.[facility] [place]In the event this information is protected by the Federal Confidentiality of Alcohol and Drug Abuse Patient Records regulations: The Federal rules restrict any use of the information to criminally investigate or prosecute any alcohol or drug abuse patient.[facility] [place]In the event this information is protected by the Federal Confidentiality of Alcohol and Drug Abuse Patient Records regulations: The Federal rules restrict any use of the information to criminally investigate or prosecute any alcohol or drug abuse patient.[facility] [place]In the event this information is protected by the Federal Confidentiality of Alcohol and Drug Abuse Patient Records regulations: The Federal rules restrict any use of the information to criminally investigate or prosecute any alcohol or drug abuse patient.[facility] [place]In the event this information is protected by the Federal Confidentiality of Alcohol and Drug Abuse Patient Records regulations: The Federal rules restrict any use of the information to criminally investigate or prosecute any alcohol or drug abuse patient.[facility] [place]In the event this information is protected by the Federal Confidentiality of Alcohol and Drug Abuse Patient Records regulations: The Federal rules restrict any use of the information to criminally investigate or prosecute any alcohol or drug abuse patient.[facility] [place]In the event this information is protected by the Federal Confidentiality of Alcohol and Drug Abuse Patient Records regulations: The Federal rules restrict any use of the information to criminally investigate or prosecute any alcohol or drug abuse patient.[facility] [place]In the event this information is protected by the Federal Confidentiality of Alcohol and Drug Abuse Patient Records regulations: The Federal rules restrict any use of the information to criminally investigate or prosecute any alcohol or drug abuse patient.[facility] [place]In the event this information is protected by the Federal Confidentiality of Alcohol and Drug Abuse Patient Records regulations: The Federal rules restrict any use of the information to criminally investigate or prosecute any alcohol or drug abuse patient.[facility] AndersonIn the event this information is protected by the Federal Confidentiality of Alcohol and Drug Abuse Patient Records regulations: The Federal rules restrict any use of the information to criminally investigate or prosecute any alcohol or drug abuse patient.[facility] [place]In the event this information is protected by the Federal Confidentiality of Alcohol and Drug Abuse Patient Records regulations: The Federal rules restrict any use of the information to criminally investigate or prosecute any alcohol or drug abuse patient.[facility] [place]In the event this information is protected by the Federal Confidentiality of Alcohol and Drug Abuse Patient Records regulations: The Federal rules restrict any use of the information to criminally investigate or prosecute any alcohol or drug abuse patient.[facility] [place]In the event this information is protected by the Federal Confidentiality of Alcohol and Drug Abuse Patient Records regulations: The Federal rules restrict any use of the information to criminally investigate or prosecute any alcohol or drug abuse patient.[facility] [place]In the event this information is protected by the Federal Confidentiality of Alcohol and Drug Abuse Patient Records regulations: The Federal rules restrict any use of the information to criminally investigate or prosecute any alcohol or drug abuse patient.[facility] [place]In the event this information is protected by the Federal Confidentiality of Alcohol and Drug Abuse Patient Records regulations: The Federal rules restrict any use of the information to criminally investigate or prosecute any alcohol or drug abuse patient.[facility] [place]In the event this information is protected by the Federal Confidentiality of Alcohol and Drug Abuse Patient Records regulations: The Federal rules restrict any use of the information to criminally investigate or prosecute any alcohol or drug abuse patient.[facility] [place]In the event this information is protected by the Federal Confidentiality of Alcohol and Drug Abuse Patient Records regulations: The Federal rules restrict any use of the information to criminally investigate or prosecute any alcohol or drug abuse patient.[facility] [place]In the event this information is protected by the Federal Confidentiality of Alcohol and Drug Abuse Patient Records regulations: The Federal rules restrict any use of the information to criminally investigate or prosecute any alcohol or drug abuse patient.[facility] [place]In the event this information is protected by the Federal Confidentiality of Alcohol and Drug Abuse Patient Records regulations: The Federal rules restrict any use of the information to criminally investigate or prosecute any alcohol or drug abuse patient.[facility] [place]In the event this information is protected by the Federal Confidentiality of Alcohol and Drug Abuse Patient Records regulations: The Federal rules restrict any use of the information to criminally investigate or prosecute any alcohol or drug abuse patient.[facility] AndersonIn the event this information is protected by the Federal Confidentiality of Alcohol and Drug Abuse Patient Records regulations: The Federal rules restrict any use of the information to criminally investigate or prosecute any alcohol or drug abuse patient.[facility] AndersonIn the event this information is protected by the Federal Confidentiality of Alcohol and Drug Abuse Patient Records regulations: The Federal rules restrict any use of the information to criminally investigate or prosecute any alcohol or drug abuse patient.[facility] AndersonIn the event this information is protected by the Federal Confidentiality of Alcohol and Drug Abuse Patient Records regulations: The Federal rules restrict any use of the information to criminally investigate or prosecute any alcohol or drug abuse patient.[facility] AndersonIn the event this information is protected by the Federal Confidentiality of Alcohol and Drug Abuse Patient Records regulations: The Federal rules restrict any use of the information to criminally investigate or prosecute any alcohol or drug abuse patient.[facility] AndersonIn the event this information is protected by the Federal Confidentiality of Alcohol and Drug Abuse Patient Records regulations: The Federal rules restrict any use of the information to criminally investigate or prosecute any alcohol or drug abuse patient.[facility] [place]In the event this information is protected by the Federal Confidentiality of Alcohol and Drug Abuse Patient Records regulations: The Federal rules restrict any use of the information to criminally investigate or prosecute any alcohol or drug abuse patient.[facility] [place]In the event this information is protected by the Federal Confidentiality of Alcohol and Drug Abuse Patient Records regulations: The Federal rules restrict any use of the information to criminally investigate or prosecute any alcohol or drug abuse patient.[facility] [place]In the event this information is protected by the Federal Confidentiality of Alcohol and Drug Abuse Patient Records regulations: The Federal rules restrict any use of the information to criminally investigate or prosecute any alcohol or drug abuse patient.[facility] [place]In the event this information is protected by the Federal Confidentiality of Alcohol and Drug Abuse Patient Records regulations: The Federal rules restrict any use of the information to criminally investigate or prosecute any alcohol or drug abuse patient.[facility] [place]In the event this information is protected by the Federal Confidentiality of Alcohol and Drug Abuse Patient Records regulations: The Federal rules restrict any use of the information to criminally investigate or prosecute any alcohol or drug abuse patient.[facility] AndersonIn the event this information is protected by the Federal Confidentiality of Alcohol and Drug Abuse Patient Records regulations: The Federal rules restrict any use of the information to criminally investigate or prosecute any alcohol or drug abuse patient.[facility] AndersonIn the event this information is protected by the Federal Confidentiality of Alcohol and Drug Abuse Patient Records regulations: The Federal rules restrict any use of the information to criminally investigate or prosecute any alcohol or drug abuse patient.[facility] [place]In the event this information is protected by the Federal Confidentiality of Alcohol and Drug Abuse Patient Records regulations: The Federal rules restrict any use of the information to criminally investigate or prosecute any alcohol or drug abuse patient.[facility] AndersonIn the event this information is protected by the Federal Confidentiality of Alcohol and Drug Abuse Patient Records regulations: The Federal rules restrict any use of the information to criminally investigate or prosecute any alcohol or drug abuse patient.[facility] AndersonIn the event this information is protected by the Federal Confidentiality of Alcohol and Drug Abuse Patient Records regulations: The Federal rules restrict any use of the information to criminally investigate or prosecute any alcohol or drug abuse patient.[facility] [place]In the event this information is protected by the Federal Confidentiality of Alcohol and Drug Abuse Patient Records regulations: The Federal rules restrict any use of the information to criminally investigate or prosecute any alcohol or drug abuse patient.[facility] AndersonIn the event this information is protected by the Federal Confidentiality of Alcohol and Drug Abuse Patient Records regulations: The Federal rules restrict any use of the information to criminally investigate or prosecute any alcohol or drug abuse patient.[facility] AndersonIn the event this information is protected by the Federal Confidentiality of Alcohol and Drug Abuse Patient Records regulations: The Federal rules restrict any use of the information to criminally investigate or prosecute any alcohol or drug abuse patient.[facility] [place]In the event this information is protected by the Federal Confidentiality of Alcohol and Drug Abuse Patient Records regulations: The Federal rules restrict any use of the information to criminally investigate or prosecute any alcohol or drug abuse patient.[facility] AndersonIn the event this information is protected by the Federal Confidentiality of Alcohol and Drug Abuse Patient Records regulations: The Federal rules restrict any use of the information to criminally investigate or prosecute any alcohol or drug abuse patient.[facility] AndersonIn the event this information is protected by the Federal Confidentiality of Alcohol and Drug Abuse Patient Records regulations: The Federal rules restrict any use of the information to criminally investigate or prosecute any alcohol or drug abuse patient.[facility] [facility] - [place]In the event this information is protected by the Federal Confidentiality of Alcohol and Drug Abuse Patient Records regulations: The Federal rules restrict any use of the information to criminally investigate or prosecute any alcohol or drug abuse patient.[facility] - [place]In the event this information is protected by the Federal Confidentiality of Alcohol and Drug Abuse Patient Records regulations: The Federal rules restrict any use of the information to criminally investigate or prosecute any alcohol or drug abuse patient.[facility] - [place]In the event this information is protected by the Federal Confidentiality of Alcohol and Drug Abuse Patient Records regulations: The Federal rules restrict any use of the information to criminally investigate or prosecute any alcohol or drug abuse patient.[facility] - [place]In the event this information is protected by the Federal Confidentiality of Alcohol and Drug Abuse Patient Records regulations: The Federal rules restrict any use of the information to criminally investigate or prosecute any alcohol or drug abuse patient.[facility] - [place]In the event this information is protected by the Federal Confidentiality of Alcohol and Drug Abuse Patient Records regulations: The Federal rules restrict any use of the information to criminally investigate or prosecute any alcohol or drug abuse patient.[facility] - [place]In the event this information is protected by the Federal Confidentiality of Alcohol and Drug Abuse Patient Records regulations: The Federal rules restrict any use of the information to criminally investigate or prosecute any alcohol or drug abuse patient.[facility] - [place]In the event this information is protected by the Federal Confidentiality of Alcohol and Drug Abuse Patient Records regulations: The Federal rules restrict any use of the information to criminally investigate or prosecute any alcohol or drug abuse patient.[facility] - [place]In the event this information is protected by the Federal Confidentiality of Alcohol and Drug Abuse Patient Records regulations: The Federal rules restrict any use of the information to criminally investigate or prosecute any alcohol or drug abuse patient.[facility] - [place]In the event this information is protected by the Federal Confidentiality of Alcohol and Drug Abuse Patient Records regulations: The Federal rules restrict any use of the information to criminally investigate or prosecute any alcohol or drug abuse patient.[facility] - [place]In the event this information is protected by the Federal Confidentiality of Alcohol and Drug Abuse Patient Records regulations: The Federal rules restrict any use of the information to criminally investigate or prosecute any alcohol or drug abuse patient.[facility] - [place]In the event this information is protected by the Federal Confidentiality of Alcohol and Drug Abuse Patient Records regulations: The Federal rules restrict any use of the information to criminally investigate or prosecute any alcohol or drug abuse patient.[facility] - [place]In the event this information is protected by the Federal Confidentiality of Alcohol and Drug Abuse Patient Records regulations: The Federal rules restrict any use of the information to criminally investigate or prosecute any alcohol or drug abuse patient.[facility] - [place]In the event this information is protected by the Federal Confidentiality of Alcohol and Drug Abuse Patient Records regulations: The Federal rules restrict any use of the information to criminally investigate or prosecute any alcohol or drug abuse patient.[facility] - [place]In the event this information is protected by the Federal Confidentiality of Alcohol and Drug Abuse Patient Records regulations: The Federal rules restrict any use of the information to criminally investigate or prosecute any alcohol or drug abuse patient.[facility] - [place]In the event this information is protected by the Federal Confidentiality of Alcohol and Drug Abuse Patient Records regulations: The Federal rules restrict any use of the information to criminally investigate or prosecute any alcohol or drug abuse patient.[facility] - AndersonIn the event this information is protected by the Federal Confidentiality of Alcohol and Drug Abuse Patient Records regulations: The Federal rules restrict any use of the information to criminally investigate or prosecute any alcohol or drug abuse patient.[facility] - AndersonIn the event this information is protected by the Federal Confidentiality of Alcohol and Drug Abuse Patient Records regulations: The Federal rules restrict any use of the information to criminally investigate or prosecute any alcohol or drug abuse patient.[facility] - [place]In the event this information is protected by the Federal Confidentiality of Alcohol and Drug Abuse Patient Records regulations: The Federal rules restrict any use of the information to criminally investigate or prosecute any alcohol or drug abuse patient.[facility] - [place]In the event this information is protected by the Federal Confidentiality of Alcohol and Drug Abuse Patient Records regulations: The Federal rules restrict any use of the information to criminally investigate or prosecute any alcohol or drug abuse patient.[facility] - [place]In the event this information is protected by the Federal Confidentiality of Alcohol and Drug Abuse Patient Records regulations: The Federal rules restrict any use of the information to criminally investigate or prosecute any alcohol or drug abuse patient.[facility] - [place]In the event this information is protected by the Federal Confidentiality of Alcohol and Drug Abuse Patient Records regulations: The Federal rules restrict any use of the information to criminally investigate or prosecute any alcohol or drug abuse patient.[facility] - [place]In the event this information is protected by the Federal Confidentiality of Alcohol and Drug Abuse Patient Records regulations: The Federal rules restrict any use of the information to criminally investigate or prosecute any alcohol or drug abuse patient.[facility] - [place]In the event this information is protected by the Federal Confidentiality of Alcohol and Drug Abuse Patient Records regulations: The Federal rules restrict any use of the information to criminally investigate or prosecute any alcohol or drug abuse patient.[facility] - [place]In the event this information is protected by the Federal Confidentiality of Alcohol and Drug Abuse Patient Records regulations: The Federal rules restrict any use of the information to criminally investigate or prosecute any alcohol or drug abuse patient.[facility] - [place]In the event this information is protected by the Federal Confidentiality of Alcohol and Drug Abuse Patient Records regulations: The Federal rules restrict any use of the information to criminally investigate or prosecute any alcohol or drug abuse patient.[facility] - [place]In the event this information is protected by the Federal Confidentiality of Alcohol and Drug Abuse Patient Records regulations: The Federal rules restrict any use of the information to criminally investigate or prosecute any alcohol or drug abuse patient.[facility] - [place]In the event this information is protected by the Federal Confidentiality of Alcohol and Drug Abuse Patient Records regulations: The Federal rules restrict any use of the information to criminally investigate or prosecute any alcohol or drug abuse patient.[facility] - [place]In the event this information is protected by the Federal Confidentiality of Alcohol and Drug Abuse Patient Records regulations: The Federal rules restrict any use of the information to criminally investigate or prosecute any alcohol or drug abuse patient.[facility] - [place]In the event this information is protected by the Federal Confidentiality of Alcohol and Drug Abuse Patient Records regulations: The Federal rules restrict any use of the information to criminally investigate or prosecute any alcohol or drug abuse patient.[facility] - [place]In the event this information is protected by the Federal Confidentiality of Alcohol and Drug Abuse Patient Records regulations: The Federal rules restrict any use of the information to criminally investigate or prosecute any alcohol or drug abuse patient.[facility] - [place]In the event this information is protected by the Federal Confidentiality of Alcohol and Drug Abuse Patient Records regulations: The Federal rules restrict any use of the information to criminally investigate or prosecute any alcohol or drug abuse patient.[facility] - [place]In the event this information is protected by the Federal Confidentiality of Alcohol and Drug Abuse Patient Records regulations: The Federal rules restrict any use of the information to criminally investigate or prosecute any alcohol or drug abuse patient.[facility] - [place]In the event this information is protected by the Federal Confidentiality of Alcohol and Drug Abuse Patient Records regulations: The Federal rules restrict any use of the information to criminally investigate or prosecute any alcohol or drug abuse patient.[facility] - [place]In the event this information is protected by the Federal Confidentiality of Alcohol and Drug Abuse Patient Records regulations: The Federal rules restrict any use of the information to criminally investigate or prosecute any alcohol or drug abuse patient.[facility] - [place]In the event this information is protected by the Federal Confidentiality of Alcohol and Drug Abuse Patient Records regulations: The Federal rules restrict any use of the information to criminally investigate or prosecute any alcohol or drug abuse patient.[facility] - [place]In the event this information is protected by the Federal Confidentiality of Alcohol and Drug Abuse Patient Records regulations: The Federal rules restrict any use of the information to criminally investigate or prosecute any alcohol or drug abuse patient.[facility] - [place]In the event this information is protected by the Federal Confidentiality of Alcohol and Drug Abuse Patient Records regulations: The Federal rules restrict any use of the information to criminally investigate or prosecute any alcohol or drug abuse patient.[facility] - [place]In the event this information is protected by the Federal Confidentiality of Alcohol and Drug Abuse Patient Records regulations: The Federal rules restrict any use of the information to criminally investigate or prosecute any alcohol or drug abuse patient.[facility] - AndersonIn the event this information is protected by the Federal Confidentiality of Alcohol and Drug Abuse Patient Records regulations: The Federal rules restrict any use of the information to criminally investigate or prosecute any alcohol or drug abuse patient.[facility] - AndersonIn the event this information is protected by the Federal Confidentiality of Alcohol and Drug Abuse Patient Records regulations: The Federal rules restrict any use of the information to criminally investigate or prosecute any alcohol or drug abuse patient.[facility] - [place]In the event this information is protected by the Federal Confidentiality of Alcohol and Drug Abuse Patient Records regulations: The Federal rules restrict any use of the information to criminally investigate or prosecute any alcohol or drug abuse patient.[facility] - [place]In the event this information is protected by the Federal Confidentiality of Alcohol and Drug Abuse Patient Records regulations: The Federal rules restrict any use of the information to criminally investigate or prosecute any alcohol or drug abuse patient.[facility] - [place]In the event this information is protected by the Federal Confidentiality of Alcohol and Drug Abuse Patient Records regulations: The Federal rules restrict any use of the information to criminally investigate or prosecute any alcohol or drug abuse patient.[facility] - [place]In the event this information is protected by the Federal Confidentiality of Alcohol and Drug Abuse Patient Records regulations: The Federal rules restrict any use of the information to criminally investigate or prosecute any alcohol or drug abuse patient.[facility] - [place]In the event this information is protected by the Federal Confidentiality of Alcohol and Drug Abuse Patient Records regulations: The Federal rules restrict any use of the information to criminally investigate or prosecute any alcohol or drug abuse patient.[facility] - [place]In the event this information is protected by the Federal Confidentiality of Alcohol and Drug Abuse Patient Records regulations: The Federal rules restrict any use of the information to criminally investigate or prosecute any alcohol or drug abuse patient.[facility] - [place]In the event this information is protected by the Federal Confidentiality of Alcohol and Drug Abuse Patient Records regulations: The Federal rules restrict any use of the information to criminally investigate or prosecute any alcohol or drug abuse patient.[facility] - [place]In the event this information is protected by the Federal Confidentiality of Alcohol and Drug Abuse Patient Records regulations: The Federal rules restrict any use of the information to criminally investigate or prosecute any alcohol or drug abuse patient.[facility] - [place]In the event this information is protected by the Federal Confidentiality of Alcohol and Drug Abuse Patient Records regulations: The Federal rules restrict any use of the information to criminally investigate or prosecute any alcohol or drug abuse patient.[facility] - AndersonIn the event this information is protected by the Federal Confidentiality of Alcohol and Drug Abuse Patient Records regulations: The Federal rules restrict any use of the information to criminally investigate or prosecute any alcohol or drug abuse patient.[facility] - [place]In the event this information is protected by the Federal Confidentiality of Alcohol and Drug Abuse Patient Records regulations: The Federal rules restrict any use of the information to criminally investigate or prosecute any alcohol or drug abuse patient.[facility] - AndersonIn the event this information is protected by the Federal Confidentiality of Alcohol and Drug Abuse Patient Records regulations: The Federal rules restrict any use of the information to criminally investigate or prosecute any alcohol or drug abuse patient.[facility] - AndersonIn the event this information is protected by the Federal Confidentiality of Alcohol and Drug Abuse Patient Records regulations: The Federal rules restrict any use of the information to criminally investigate or prosecute any alcohol or drug abuse patient.[facility] - [place]In the event this information is protected by the Federal Confidentiality of Alcohol and Drug Abuse Patient Records regulations: The Federal rules restrict any use of the information to criminally investigate or prosecute any alcohol or drug abuse patient.[facility] - AndersonIn the event this information is protected by the Federal Confidentiality of Alcohol and Drug Abuse Patient Records regulations: The Federal rules restrict any use of the information to criminally investigate or prosecute any alcohol or drug abuse patient.[facility] - AndersonIn the event this information is protected by the Federal Confidentiality of Alcohol and Drug Abuse Patient Records regulations: The Federal rules restrict any use of the information to criminally investigate or prosecute any alcohol or drug abuse patient.[facility] - [place]In the event this information is protected by the Federal Confidentiality of Alcohol and Drug Abuse Patient Records regulations: The Federal rules restrict any use of the information to criminally investigate or prosecute any alcohol or drug abuse patient.[facility] - AndersonIn the event this information is protected by the Federal Confidentiality of Alcohol and Drug Abuse Patient Records regulations: The Federal rules restrict any use of the information to criminally investigate or prosecute any alcohol or drug abuse patient.[facility] - AndersonIn the event this information is protected by the Federal Confidentiality of Alcohol and Drug Abuse Patient Records regulations: The Federal rules restrict any use of the information to criminally investigate or prosecute any alcohol or drug abuse patient.[facility] - AndersonIn the event this information is protected by the Federal Confidentiality of Alcohol and Drug Abuse Patient Records regulations: The Federal rules restrict any use of the information to criminally investigate or prosecute any alcohol or drug abuse patient.[facility] - AndersonIn the event this information is protected by the Federal Confidentiality of Alcohol and Drug Abuse Patient Records regulations: The Federal rules restrict any use of the information to criminally investigate or prosecute any alcohol or drug abuse patient.[facility] - AndersonIn the event this information is protected by the Federal Confidentiality of Alcohol and Drug Abuse Patient Records regulations: The Federal rules restrict any use of the information to criminally investigate or prosecute any alcohol or drug abuse patient.[facility] - AndersonIn the event this information is protected by the Federal Confidentiality of Alcohol and Drug Abuse Patient Records regulations: The Federal rules restrict any use of the information to criminally investigate or prosecute any alcohol or drug abuse patient.[facility] - AndersonIn the event this information is protected by the Federal Confidentiality of Alcohol and Drug Abuse Patient Records regulations: The Federal rules restrict any use of the information to criminally investigate or prosecute any alcohol or drug abuse patient.[facility] - AndersonIn the event this information is protected by the Federal Confidentiality of Alcohol and Drug Abuse Patient Records regulations: The Federal rules restrict any use of the information to criminally investigate or prosecute any alcohol or drug abuse patient.[facility] - AndersonIn the event this information is protected by the Federal Confidentiality of Alcohol and Drug Abuse Patient Records regulations: The Federal rules restrict any use of the information to criminally investigate or prosecute any alcohol or drug abuse patient.[facility] - [place]In the event this information is protected by the Federal Confidentiality of Alcohol and Drug Abuse Patient Records regulations: The Federal rules restrict any use of the information to criminally investigate or prosecute any alcohol or drug abuse patient.[facility] - [place]In the event this information is protected by the Federal Confidentiality of Alcohol and Drug Abuse Patient Records regulations: The Federal rules restrict any use of the information to criminally investigate or prosecute any alcohol or drug abuse patient.[facility] - [place]In the event this information is protected by the Federal Confidentiality of Alcohol and Drug Abuse Patient Records regulations: The Federal rules restrict any use of the information to criminally investigate or prosecute any alcohol or drug abuse patient.[facility] - [place]In the event this information is protected by the Federal Confidentiality of Alcohol and Drug Abuse Patient Records regulations: The Federal rules restrict any use of the information to criminally investigate or prosecute any alcohol or drug abuse patient.[facility] - [place]In the event this information is protected by the Federal Confidentiality of Alcohol and Drug Abuse Patient Records regulations: The Federal rules restrict any use of the information to criminally investigate or prosecute any alcohol or drug abuse patient.[facility] - [place]In the event this information is protected by the Federal Confidentiality of Alcohol and Drug Abuse Patient Records regulations: The Federal rules restrict any use of the information to criminally investigate or prosecute any alcohol or drug abuse patient.[facility] - [place]In the event this information is protected by the Federal Confidentiality of Alcohol and Drug Abuse Patient Records regulations: The Federal rules restrict any use of the information to criminally investigate or prosecute any alcohol or drug abuse patient.[facility] - AndersonIn the event this information is protected by the Federal Confidentiality of Alcohol and Drug Abuse Patient Records regulations: The Federal rules restrict any use of the information to criminally investigate or prosecute any alcohol or drug abuse patient.[facility] - [place]In the event this information is protected by the Federal Confidentiality of Alcohol and Drug Abuse Patient Records regulations: The Federal rules restrict any use of the information to criminally investigate or prosecute any alcohol or drug abuse patient.[facility] - [place]In the event this information is protected by the Federal Confidentiality of Alcohol and Drug Abuse Patient Records regulations: The Federal rules restrict any use of the information to criminally investigate or prosecute any alcohol or drug abuse patient.[facility] - AndersonIn the event this information is protected by the Federal Confidentiality of Alcohol and Drug Abuse Patient Records regulations: The Federal rules restrict any use of the information to criminally investigate or prosecute any alcohol or drug abuse patient.[facility] - [place]In the event this information is protected by the Federal Confidentiality of Alcohol and Drug Abuse Patient Records regulations: The Federal rules restrict any use of the information to criminally investigate or prosecute any alcohol or drug abuse patient.[facility] - [place]In the event this information is protected by the Federal Confidentiality of Alcohol and Drug Abuse Patient Records regulations: The Federal rules restrict any use of the information to criminally investigate or prosecute any alcohol or drug abuse patient.[facility] - [place]In the event this information is protected by the Federal Confidentiality of Alcohol and Drug Abuse Patient Records regulations: The Federal rules restrict any use of the information to criminally investigate or prosecute any alcohol or drug abuse patient.[facility] - AndersonIn the event this information is protected by the Federal Confidentiality of Alcohol and Drug Abuse Patient Records regulations: The Federal rules restrict any use of the information to criminally investigate or prosecute any alcohol or drug abuse patient.[facility] - AndersonIn the event this information is protected by the Federal Confidentiality of Alcohol and Drug Abuse Patient Records regulations: The Federal rules restrict any use of the information to criminally investigate or prosecute any alcohol or drug abuse patient.[facility] AndersonIn the event this information is protected by the Federal Confidentiality of Alcohol and Drug Abuse Patient Records regulations: The Federal rules restrict any use of the information to criminally investigate or prosecute any alcohol or drug abuse patient.[facility] AndersonIn the event this information is protected by the Federal Confidentiality of Alcohol and Drug Abuse Patient Records regulations: The Federal rules restrict any use of the information to criminally investigate or prosecute any alcohol or drug abuse patient.[facility] AndersonIn the event this information is protected by the Federal Confidentiality of Alcohol and Drug Abuse Patient Records regulations: The Federal rules restrict any use of the information to criminally investigate or prosecute any alcohol or drug abuse patient.[facility] AndersonIn the event this information is protected by the Federal Confidentiality of Alcohol and Drug Abuse Patient Records regulations: The Federal rules restrict any use of the information to criminally investigate or prosecute any alcohol or drug abuse patient.[facility] AndersonIn the event this information is protected by the Federal Confidentiality of Alcohol and Drug Abuse Patient Records regulations: The Federal rules restrict any use of the information to criminally investigate or prosecute any alcohol or drug abuse patient.[facility] AndersonIn the event this information is protected by the Federal Confidentiality of Alcohol and Drug Abuse Patient Records regulations: The Federal rules restrict any use of the information to criminally investigate or prosecute any alcohol or drug abuse patient.[facility] AndersonIn the event this information is protected by the Federal Confidentiality of Alcohol and Drug Abuse Patient Records regulations: The Federal rules restrict any use of the information to criminally investigate or prosecute any alcohol or drug abuse patient.[facility] AndersonIn the event this information is protected by the Federal Confidentiality of Alcohol and Drug Abuse Patient Records regulations: The Federal rules restrict any use of the information to criminally investigate or prosecute any alcohol or drug abuse patient.[facility] AndersonIn the event this information is protected by the Federal Confidentiality of Alcohol and Drug Abuse Patient Records regulations: The Federal rules restrict any use of the information to criminally investigate or prosecute any alcohol or drug abuse patient.[facility] AndersonIn the event this information is protected by the Federal Confidentiality of Alcohol and Drug Abuse Patient Records regulations: The Federal rules restrict any use of the information to criminally investigate or prosecute any alcohol or drug abuse patient.[facility] AndersonIn the event this information is protected by the Federal Confidentiality of Alcohol and Drug Abuse Patient Records regulations: The Federal rules restrict any use of the information to criminally investigate or prosecute any alcohol or drug abuse patient.[facility] AndersonIn the event this information is protected by the Federal Confidentiality of Alcohol and Drug Abuse Patient Records regulations: The Federal rules restrict any use of the information to criminally investigate or prosecute any alcohol or drug abuse patient.[facility] AndersonIn the event this information is protected by the Federal Confidentiality of Alcohol and Drug Abuse Patient Records regulations: The Federal rules restrict any use of the information to criminally investigate or prosecute any alcohol or drug abuse patient.[facility] AndersonIn the event this information is protected by the Federal Confidentiality of Alcohol and Drug Abuse Patient Records regulations: The Federal rules restrict any use of the information to criminally investigate or prosecute any alcohol or drug abuse patient.[facility] AndersonIn the event this information is protected by the Federal Confidentiality of Alcohol and Drug Abuse Patient Records regulations: The Federal rules restrict any use of the information to criminally investigate or prosecute any alcohol or drug abuse patient.[facility] AndersonIn the event this information is protected by the Federal Confidentiality of Alcohol and Drug Abuse Patient Records regulations: The Federal rules restrict any use of the information to criminally investigate or prosecute any alcohol or drug abuse patient.[facility] AndersonIn the event this information is protected by the Federal Confidentiality of Alcohol and Drug Abuse Patient Records regulations: The Federal rules restrict any use of the information to criminally investigate or prosecute any alcohol or drug abuse patient.[facility] AndersonIn the event this information is protected by the Federal Confidentiality of Alcohol and Drug Abuse Patient Records regulations: The Federal rules restrict any use of the information to criminally investigate or prosecute any alcohol or drug abuse patient.[facility] Reason for Visit (unrecogniz ed section and [...] BREAST UNI REAL TIME WITH IMAGE LIMITED [facility], SEAM SEWER.AGENT BASED MODELER [address] [place] [address] Br Imaging [address] [place] [address] Referral ID Status Reason Start Date Expiration Date V isits Requested Visits Authorized [id number] Closed Auto-Generate d Referral 09/05/2021 10/05/2022 1 1 Reason Comments Radiology Mammogram Specialty Diagnoses / Procedures Referred By Contac t Referred To Contact BR IMAGING Diagnoses Abnormal mammogram Procedures SABINO DIAGNOSTIC LT DIAGNOSTIC MAMMOGRAPHY COMPUTER-AIDED DETCJ UNI [place], Brenda, SEAM SEWER.AGENT BASED MODELER [address] [place] [address] Br Imaging [address] [place] [address] Referral ID Status Reason Start Date Expiration Date V isits Requested Visits Authorized [id number] Closed Auto-Generate d Referral 09/05/2021 10/05/2022 1 [...] NEW HIGH MDM 60-74 MINUTES Twyla Cuevas APRN.AGENT BASED MODELER [address] [place] [address] Referral ID Status Reason Start Date Expiration Date Visits Requested Visits Authorized [id number] Pending Review PCP Requested Referral 10/11/2022 10/11/2023 1 1 Reason Onset Date Comments Refill Request 12/20/[address] Specialty Diagnoses / Procedures Referred By Contac t Referred To Contact CT IMAGING Diagnoses Lung nodules Procedures CT CHEST WO IVCON DIAGNOSTIC COMPUTED TOMOGRAPHY THORAX W/O Florence Duncan MD [address] [facility] [place] [address] [place] [address] Referral ID Status Reason Start Date Expiration Date V isits Requested Visits Authorized [id number] Closed Auto-Generate d Referral 11/29/2021 12/29/2022 1 [...] Reason Comments Discharge Skilled Rehab Discharged from [facility] Reason Onset Date Comments Refill Request 07/17/2023 [...] MD [address] [place] [address] [place] [address] Referral ID Status Reason Start Date Expiration Date V isits Requested Visits Authorized [id number] Closed Auto-Generate d Referral 08/30/2023 02/19/2024 1 1 Reason Onset Date Comments Refill Request 08/30/2023 Reason Onset Date Comments Community Monitoring Outreach 08/31/2023 F/ U engagement [facility] Home Monitoring Reason Comments Histoplasmosis Reason Comments Hospital F/U [facility] ED/Hospital disc harge 08/18/23 Reason [...] years)Recent BLE Edema and Discomfort- compression/diuretics effectiveJune [facility] ED for BleedingDoesn't like taking diuretics when [...] NEW HIGH MDM 60 MINUTES Jimbo Swanson, SEAM SEWER.MUSHROOM GROWTH MEDIA MIXER [address] [place] [address] Referral ID Status Reason Start Date Expiration Date V isits Requested Visits Authorized [id number] Closed PCP Requested Referral 10/11/2023 10/10/2024 1 [...] J1 Specialty Diagnoses / Procedures Referred By Contac t Referred To Contact CT IMAGING Diagnoses Nonrheumatic aortic valve stenosis Encounter for preprocedural cardiovascular examination Procedures CTA CHEST/ABD/PEL (GATED) W IVCON CT ANGIOGRAPHY CHEST W/CONTRAST/NONCONTRAST CT ANGIO ABD&PLVIS CNTRST MTRL W/WO CNTRST Monica Zavala, SEAM SEWER.AGENT BASED MODELER [address] [place] [address] Ct Imaging [place] [address] Referral ID Status Reason Start Date Expiration Date V isits Requested Visits Authorized [id number] Closed Auto-Generate d Referral 01/08/2024 02/06/2025 1 1 Reason Comments Patient Education Reason Comments Spirometry Specialty Diagnoses / Procedures Referred By Contac t Referred [facility] Diagnoses Nonrheumatic aortic valve stenosis Procedures SPIROMETRY BASELINE ONLY SPMTRY W/VC EXPIRATORY [place] W/WO MXML VOL VNTJ Monica Aguila, SEAM SEWER.AGENT BASED MODELER [address] [place] [id number] [facility] [address] [place] [address] Referral ID Status Reason Start Date Expiration Date V isits Requested Visits Authorized [id number] Closed Auto-Generate d Referral 01/08/2024 02/06/2025 1 1 Specialty Diagnoses / Procedures Referred By Contac t Referred To Contact [facility] Diagnoses Nonrheumatic aortic valve stenosis Procedures LUNG DIFFUSION CAPACITY (DLCO) DIFFUSING CAPACITY Monica Aguila, SEAM SEWER.AGENT BASED MODELER [address] [place] [address] [facility] [address] [place] [address] Referral ID Status Reason Start Date Expiration Date V isits Requested Visits Authorized [id number] Closed Auto-Generate d Referral 01/08/2024 02/06/2025 1 1 Reason Comments Aortic Stenosis Reason Comments Radiology NM Specialty Diagnoses / Procedures Referred By Contac t Referred To Contact MOLECULAR & FUNCTIONAL IMAGING Diagnoses Nonrheumatic aortic valve stenosis Procedures NM SPECT/CT CARDIAC AMYLOID RP LOCLZJ MARY SPECT W/CT 1 AREA 1 DAY IMAGING Monica Aguila, SEAM SEWER.AGENT BASED MODELER [address] [place] [address] Molecular & Functional Imaging [address] [place] [address] Referral ID Status Reason Start Date Expiration Date V isits Requested Visits Authorized [id number] Closed Auto-Generate d Referral 01/08/2024 02/06/2025 1 1 Reason Onset Date Comments Population Health Navigation Outreach 03/26/2024 [employer] High Risk - Attempt 2 Reason Onset Date Comments Population Health Navigation Outreach 03/31/2024 [employer] High Risk - Attempt 3 Reason Comments TAVR Meeting Reason Comments Insurance Authorization Reason Comments Referral Information Surgical Consult [facility] Dr. Francis Reason Comments Appointment TAVR scheduling [...] Care Teams (unrecognized sec tion and content) Foreign Broadcast Specialist Relationship Specialty Start Date End Date Claudine Durán MD [address] [place], [place] [address] PCP - General Internal Medicine 03/02/16 Will Hurley [address] [facility], [place] [address] Referring Rheumatology 04/09/18 Gold Colón, production potterDirector Digital Strategy Internal Medicine 07/22/20 Foreign Broadcast Specialist Relationship Specialty Start Date End Date Claudine Durán MD [address] [place], [place] [address] PCP - General Internal Medicine 03/02/16 Will Hurley [address] [facility], [place] [address] Referring Rheumatology 04/09/18 Gold Colón, production potterDirector Digital Strategy Internal Medicine 07/22/20 Foreign Broadcast Specialist Relationship Specialty Start Date End Date Claudine Durán MD [address] [place], [place] [address] PCP - General Internal Medicine 03/02/16 Will Hurley[address] [facility] [address] Referring Rheumatology 04/09/18 Gold Colón, production potterDirector Digital Strategy Internal Medicine 07/22/20 Foreign Broadcast Specialist Relationship Specialty Start Date End Date Claudine Durán MD [address] [place], [place] [address]401 PCP - General Internal Medicine 03/02/16 Will Hruley [address] [place] [facility] [address] Referring Rheumatology 04/09/18 Gold Colón, production potterDirector Digital Strategy Internal Medicine 07/22/20 Foreign Broadcast Specialist Relationship Specialty Start Date End Date Claudine Durán MD [address] [place], [place] [address] PCP - General Internal Medicine 03/02/16 Will Hurley [address] [place] [facility] [address] Referring Rheumatology 04/09/18 Gold Colón, production potterDirector Digital Strategy Internal Medicine 07/22/20 Foreign Broadcast Specialist Relationship Specialty Start Date End Date Claudine Durán MD [address] [place] [address] PCP - General Internal Medicine 03/02/16 Will Hurley [address] [place] [facility] [address] Referring Rheumatology 04/09/18 Gold Colón, production potterDirector Digital Strategy Internal Medicine 07/22/20 Foreign Broadcast Specialist Relationship Specialty Start Date End Date Claudine Durán MD [address] [place] [address] PCP - General Internal Medicine 03/02/16 Will Hurley [address] [place] [facility] [address] Referring Rheumatology 04/09/18 Gold Colón, production potterDirector Digital Strategy Internal Medicine 07/22/20 Foreign Broadcast Specialist Relationship Specialty Start Date End Date Claudine Durán MD [address] [place], [place] [address] PCP - General Internal Medicine 03/02/16 Will Hurley [address] [place] [facility] [address] Referring Rheumatology 04/09/18 Gold Colón, production potterDirector Digital Strategy Internal Medicine 07/22/20 Foreign Broadcast Specialist Relationship Specialty Start Date End Date Claudine Durán MD [address] [facility], [place] [address] PCP - General Internal Medicine 03/02/16 Will Hurley [address] [place] [facility] [address] Referring Rheumatology 04/09/18 Gold Colón, production potterDirector Digital Strategy Internal Medicine 07/22/20 Foreign Broadcast Specialist Relationship Specialty Start Date End Date Claudine Durán MD [address] [place] [address] PCP - General Internal Medicine 03/02/16 Will Hurley [address] [place] [facility] [address] Referring Rheumatology 04/09/18 Gold Colón, production potterDirector Digital Strategy Internal Medicine 07/22/20 Foreign Broadcast Specialist Relationship Specialty Start Date End Date Claudine Durán MD [address] [facility] [place] [address] PCP - General Internal Medicine 03/02/16 Will Hurley [address] [place] [facility] [address] Referring Rheumatology 04/09/18 Gold Colón, production potterDirector Digital Strategy Internal Medicine 07/22/20 Foreign Broadcast Specialist Relationship Specialty Start Date End Date Claudine Durán MD [address] [place], [place] [address] PCP - General Internal Medicine 03/02/16 Will Hurley [address] [place] [facility] [address] Referring Rheumatology 04/09/18 Gold Colón, production potterDirector Digital Strategy Internal Medicine 07/22/20 Foreign Broadcast Specialist Relationship Specialty Start Date End Date Claudine Durán MD [address] [facility] [place] [address] PCP - General Internal Medicine 03/02/16 Will Hurley [address] [facility] [address] Referring Rheumatology 04/09/18 Gold Colón, production potterDirector Digital Strategy Internal Medicine 07/22/20 Foreign Broadcast Specialist Relationship Specialty Start Date End Date Claudine Durán MD [address] [facility] [place] [address] PCP - General Internal Medicine 03/02/16 Will Hurley [address] [place] [facility] [address] Referring Rheumatology 04/09/18 Gold Colón, production potterDirector Digital Strategy Internal Medicine 07/22/20 Foreign Broadcast Specialist Relationship Specialty Start Date End Date Claudine Durán MD [address] [facility] [place] [address] PCP - General Internal Medicine 03/02/16 Will Hurley [address] [place] [facility] [address] Referring Rheumatology 04/09/18 Gold Colón, production potterDirector Digital Strategy Internal Medicine 07/22/20 Foreign Broadcast Specialist Relationship Specialty Start Date End Date Claudine Durán MD [address] [facility] [place] [address] PCP - General Internal Medicine 03/02/16 Will Hurley [address] [place] [facility] [address] Referring Rheumatology 04/09/18 Gold Colón, production potterDirector Digital Strategy Internal Medicine 07/22/20 Foreign Broadcast Specialist Relationship Specialty Start Date End Date Claudine Durán MD [address] [facility] [place] [address] PCP - General Internal Medicine 03/02/16 Will Hurley[address] [facility] [address] Referring Rheumatology 04/09/18 Gold Colón production potterDirector Digital Strategy Internal Medicine 07/22/20 Foreign Broadcast Specialist Relationship Specialty Start Date End Date Claudine Durán MD [address] [facility] [place] [address] PCP - General Internal Medicine 03/02/16 Will Hurley [address] [place] [facility] [address] Referring Rheumatology 04/09/18 Gold Colón production potterDirector Digital Strategy Internal Medicine 07/22/20 Foreign Broadcast Specialist Relationship Specialty Start Date End Date Claudine Durán MD [address] [facility] [place] [address] PCP - General Internal Medicine 03/02/16 Will Hurley [address] [place] [facility] [address] Referring Rheumatology 04/09/18 Lulú Raoms RN [address] [place] [address] Director Digital Strategy Family Medicine 07/22/20 Foreign Broadcast Specialist Relationship Specialty Start Date End Date Claudine Durán MD [address] [facility] [place] [address] PCP - General Internal Medicine 03/02/16 Will granger [address] [place] [facility] [address] Referring Rheumatology 04/09/18 Gold Colón, production potterDirector Digital Strategy Internal Medicine 07/22/20 12/20/21 Lulú Ramos, RN [address] [place], [place] [id number] Director Digital Strategy Family Medicine 07/22/20 Foreign Broadcast Specialist Relationship Specialty Start Date End Date Claudine Durán MD [address] [place] [address] PCP - General Internal Medicine 03/02/16 Will granger [address] [facility] [address] Referring Rheumatology 04/09/18 Lulú Ramos, RN [address] [place] [address] Director Digital Strategy Family Medicine 07/22/20 Foreign Broadcast Specialist Relationship Specialty Start Date End Date Claudine Durán MD [address] [facility] [place] [address] PCP - General Internal Medicine 03/02/16 Will granger [address] [place] [facility] [address] Referring Rheumatology 04/09/18 Lulú Ramos, RN [address] [place] [address] Director Digital Strategy Family Medicine 07/22/20 Foreign Broadcast Specialist Relationship Specialty Start Date End Date Claudine Durán MD [address] [facility] [place] [address] PCP - General Internal Medicine 03/02/16 Will Hurley [address] [facility] [place] [address] Referring Rheumatology 04/09/18 Lulú Ramos, RN [address] [place] [address] Director Digital Strategy Family Medicine 07/22/20 Foreign Broadcast Specialist Relationship Specialty Start Date End Date Claudine Durán MD [address] [facility] [place] [address] PCP - General Internal Medicine 03/02/16 Will Hurley N [facility] [place] [address] Referring Rheumatology 04/09/18 Lulú Ramos, PAULA [address] [place] [address] Director Digital Strategy Family Medicine 07/22/20 Foreign Broadcast Specialist Relationship Specialty Start Date End Date Claudine Durán MD [address] [facility] [place] [address] PCP - General Internal Medicine 03/02/16 Will Hurley N [facility] [place] [address] Referring Rheumatology 04/09/18 Lulú Ramos, PAULA [address] [place] [address] Director Digital Strategy Family Medicine 12/20/21 Foreign Broadcast Specialist Relationship Specialty Start Date End Date Claudine Durán MD [address] [facility] [place] [address] PCP - General Internal Medicine 03/02/16 Will Hurley [place] [facility] [address] Referring Rheumatology 04/09/18 Lulú Ramos, PAULA [address] [facility] [place] [address] Director Digital Strategy Family Medicine 12/20/21 Foreign Broadcast Specialist Relationship Specialty Start Date End Date Claudine Durán MD [address] [facility] [place] [address] PCP - General Internal Medicine 03/02/16 Will Hurley [facility] [place] [facility] [place] [place] [address] Referring Rheumatology 04/09/18 Lulú Ramos, PAULA [address] [place] [address] Director Digital Strategy Family Medicine 12/20/21 Foreign Broadcast Specialist Relationship Specialty Start Date End Date Claudine Durán MD [address] [facility] [place] [address] PCP - General Internal Medicine 03/02/16 Will Hurley [address] [place] [address], [place] [address] Referring Rheumatology 04/09/18 Lulú Ramos RN [address] [facility] [place] [address] Director Digital Strategy Family Medicine 12/20/21 Foreign Broadcast Specialist Relationship Specialty Start Date End Date Claudine Durán MD [address] [facility] [place] [address] PCP - General Internal Medicine 03/02/16 Will Hurley [facility] [place] [facility] [place] [place] [address] Referring Rheumatology 04/09/18 Lulú Ramos RN [address] [facility] [place] [address] Director Digital Strategy Family Medicine 12/20/21 Foreign Broadcast Specialist Relationship Specialty Start Date End Date Claudine Durán MD [address] [facility] [place] [address] PCP - General Internal Medicine 03/02/16 Will Hurley [address] [facility] [place] [place] [address] Referring Rheumatology 04/09/18 Lulú Ramos, RN [address] [facility] [place] [address] Director Digital Strategy Family Medicine 12/20/21 Foreign Broadcast Specialist Relationship Specialty Start Date End Date Claudine Durán MD [address] [facility] [place] [address] PCP - General Internal Medicine 03/02/16 Will Hurley [facility] [place] [facility] [place] [place] [address] Referring Rheumatology 04/09/18 Lulú Ramos, PAULA [address] [facility] [place] [address] Director Digital Strategy [facility] Medicine 12/20/21 Foreign Broadcast Specialist Relationship Specialty Start Date End Date Claudine Druán MD [address] [facility] [place] [address] PCP - General Internal Medicine 03/02/16 Will Hurley [facility] [place] [facility] [place] [place] [address] Referring Rheumatology 04/09/18 Lulú Ramos, RN [address] [facility] [place] [address] Director Digital Strategy Family Medicine 12/20/21 Foreign Broadcast Specialist Relationship Specialty Start Date End Date Claudine Durán MD [address] [facility] [place] [address] PCP - General Internal Medicine 03/02/16 Will Hurley [facility] [place] [address] Referring Rheumatology 04/09/18 Lulú Ramos, RN [address] [place], [place] [id number] Director Digital Strategy Family Medicine 12/20/21 Foreign Broadcast Specialist Relationship Specialty Start Date End Date Claudine Durán MD [address] [place], [place] [address] PCP - General Internal Medicine 03/02/16 Will Hurley [address] [place], [place] [address]Deshawn [facility] [place] [address] Referring Rheumatology 04/09/18 Lulú Ramos, RN [address] [place], [place] [id number] Director Digital Strategy Family Medicine 12/20/21 Foreign Broadcast Specialist Relationship Specialty Start Date End Date Claudine Durán MD [address] [place] [address] PCP - General Internal Medicine 03/02/16 Will Hurley [address] [place], [place] [address]Deshawn [facility] [place] [address] Referring Rheumatology 04/09/18 Ilda Miller, PAULA [address] [place] [address] Director Digital Strategy 07/27/22 Foreign Broadcast Specialist Relationship Specialty Start Date End Date Claudine Durán MD [address] [place], [place] 379631 PCP - General Internal Medicine 03/02/16 Will Hurley [facility] N [facility] [place] [address] Referring Rheumatology 04/09/18 Ilda Miller, PAULA [address] [facility] [place] [address] Director Digital Strategy 07/27/22 Foreign Broadcast Specialist Relationship Specialty Start Date End Date Claudine Durán MD [address] [facility] [place] [address] PCP - General Internal Medicine 03/02/16 Will Hurley [address] [facility] [place] [address] Referring Rheumatology 04/09/18 Ilda Miller RN [address] [place] [address] Director Digital Strategy 07/27/22 Foreign Broadcast Specialist Relationship Specialty Start Date End Date Claudine Durán MD [address] [facility] [place] [address] PCP - General Internal Medicine 03/02/16 Will Hurley [address] [facility] [place] [address] Referring Rheumatology 04/09/18 Ilda Miller RN [address] [place] [address] Director Digital Strategy 07/27/22 Foreign Broadcast Specialist Relationship Specialty Start Date End Date Claudine Durán MD [address] [facility] [place] [address] PCP - General Internal Medicine 03/02/16 Will Hurley [address] [facility] [place] [address] Referring Rheumatology 04/09/18 Ilda Miller RN [address] [facility] [place] [address] Director Digital Strategy 07/27/22 Foreign Broadcast Specialist Relationship Specialty Start Date End Date Claudine Durán MD [address] [facility] [place] [address] PCP - General Internal Medicine 03/02/16 Will Hurley [address] [facility] [place] [address] Referring Rheumatology 04/09/18 Ilda Miller RN [address] [facility] [place] [address] Director Digital Strategy 07/27/22 Foreign Broadcast Specialist Relationship Specialty Start Date End Date Claudine Durán MD [address] [place] [address] PCP - General Internal Medicine 03/02/16 Will Hurley [address] [facility] [place] [address] Referring Rheumatology 04/09/18 Ilda Miller RN [address] [facility] [place] [address] Director Digital Strategy 07/27/22 Foreign Broadcast Specialist Relationship Specialty Start Date End Date Claudine Durán MD [address] [place] [address] PCP - General Internal Medicine 03/02/16 Will Hurley [address] [facility] [place] [address] Referring Rheumatology 04/09/18 Ilda Miller RN [address] [facility] [place] [address] Director Digital Strategy 07/27/22 Foreign Broadcast Specialist Relationship Specialty Start Date End Date Claudine Durán MD [address] [place], [place] 413211 PCP - General Internal Medicine 03/02/16 Will Hurley [address] [facility] [place], [place] [address]33 Referring Rheumatology 04/09/18 Ilda Miller, RN [address] [place] [address] Director Digital Strategy 07/27/22 Foreign Broadcast Specialist Relationship Specialty Start Date End Date Claudine Durán MD [address] [place], [place] 038911 PCP - General Internal Medicine 03/02/16 Will Hurley [address] [facility] [place], [place] [address] Referring Rheumatology 04/09/18 Ilda Miller, PAULA [address] [place] [address] Director Digital Strategy 07/27/22 Foreign Broadcast Specialist Relationship Specialty Start Date End Date Claudine Durán MD [address] [place], [place] 666351 PCP - General Internal Medicine 03/02/16 Will Hurley [address] [facility] [place] [address] Referring Rheumatology 04/09/18 Ilda Miller RN [address] [facility] [place] [address] Director Digital Strategy 07/27/22 Foreign Broadcast Specialist Relationship Specialty Start Date End Date Claudine Durán MD [address] [place], [place] 362581 PCP - General Internal Medicine 03/02/16 Will Hurley [address] [facility], [place] 374053 Referring Rheumatology 04/09/18 Ilda Miller, RN [address] [place], [place] [id number] Director Digital Strategy 07/27/22 Foreign Broadcast Specialist Relationship Specialty Start Date End Date Claudine Durán MD [address] [place], [place] 982271 PCP - General Internal Medicine 03/02/16 Will Hurley [address] [facility], [place] [address]263 Referring Rheumatology 04/09/18 Lulú Ramos, PAULA [address] [place] [address] Director Digital Strategy Family Medicine 12/20/2107/26 Foreign Broadcast Specialist Relationship Specialty Start Date End Date Claudine Durán MD [address] [place], [place] 562631 PCP - General Internal Medicine 03/02/16 Will Hurley [address] [facility], [place] [id number] Referring Rheumatology 04/09/18 Ilda Miller, PAULA [address] [place], [place] [id number] Director Digital Strategy 07/27/22 Team Status: Active Member Role Status Dates Dr. Claudine Durán MD Family Provider Active Dr. Claudine Durán MD Primary Care Provider Active Team Status: Inactive Member Role Status Dates Dr. Claudine Durán MD Primary Care Provider Active Dr. Bob Elias DO Emergency Provider Active Foreign Broadcast Specialist Relationship Specialty Start Date End Date Claudine Durán MD [address] [place] [address] PCP - General Internal Medicine 03/02/16 Will Hurley [address] [facility], [place] 6[address]13 Referring Rheumatology 04/09/18 Ilda Miller, PAULA [address] [place], [place] 1557231 Director Digital Strategy 07/27/22 Team Status: Inactive Member Role Status Dates Dr. Claudine Durán MD Primary Care Provider Active Dr. Bob Elias DO Attending Provider, Emergency [facility] Active Team Status: Active Member Role Status Dates Dr. Claudine Durán MD Primary Care Provider Active Dr. Martín Cornejo DO Emergency Provider Active Dr. Laine Veras MD Admit Provider, Attending Provid er Active Foreign Broadcast Specialist Relationship Specialty Start Date End Date Claudine Durán MD [address] [place] [address] PCP - General Internal Medicine 03/02/16 Will Hurley [address] [place] [facility] [place] [place] [address] Referring Rheumatology 04/09/18 Ilda Miller, PAULA [address] [place], [place] [id number] Director Digital Strategy 07/27/22 Lynne Maynard, production potter Quiller Operator 03/26/23 Team Status: Active Member Role Status [...] Dr. Alisa Mathew MD Attending Provider Active Foreign Broadcast Specialist Relationship Specialty Start Date End Date Claudine Durán MD [address] [place], [place] 673781 PCP - General Internal Medicine 03/02/16 Will Hurley [address] [place], [place] 272903 Referring Rheumatology 04/09/18 Ilda Miller, PAULA [address] [place] [address] Director Digital Strategy 07/27/22 Lynne Maynard, production potter Quiller Operator 03/26/23 Foreign Broadcast Specialist Relationship Specialty Start Date End Date Claudine Durán MD [address] [place] [address] PCP - General Internal Medicine 03/02/16 Will Hurley [address] [facility] [place] [place] [address] Referring Rheumatology 04/09/18 Ilda Miller, PAULA [address] [place] [address] Director Digital Strategy 07/27/22 Lynne Maynard, production potter Quiller Operator 03/26/23 Team Status: Active Member Role Status [...] Agarwal DO Other Provider Active Rosalina Herrera PROCESS TRAINER, PROCESS TRAINER-C Other Provider Active Team Status: Active Member [...] , DO Other Provider Active Rosalina Herrera PROCESS TRAINER, PROCESS TRAINER-C Other Provider Active Team Status: Inactive Member [...] , DO Other Provider Active Rosalina Herrera PROCESS TRAINER, PROCESS TRAINER-C Other Provider Active Team Status: Active Member [...] , DO Other Provider Active Rosalina Herrera PROCESS TRAINER, PROCESS TRAINER-C Other Provider Active Team Status: Active Member [...] MD Admit Provider, Attending Provid er Active Foreign Broadcast Specialist Relationship Specialty Start Date End Date Claudine Durán MD [address] [place] [address] PCP - General Internal Medicine 03/02/16 Will Hurley [address] [place] [address] Referring Rheumatology 04/09/18 Ilda Miller RN [address] [place] [id number] Director Digital Strategy 07/27/22 Team Status: Active Member Role Status Dates Dr. Claudine Durán MD Primary Care Provider Active Zaynab NOLEN MD Attending Provider Active Team Status: Inactive Member Role Status Dates Dr. Claudine Durán MD Primary Care Provider Active Zaynab NOLEN MD Attending Provider Active Foreign Broadcast Specialist Relationship Specialty Start Date End Date Claudine Durán MD [address] [place] [address] PCP - General Internal Medicine 03/02/16 Will Hurley [address] [place] [address] Referring Rheumatology 04/09/18 Ilda Miller RN [address] [place], [place] [id number] Director Digital Strategy 07/27/22 Team Status: Inactive Member Role Status Dates Dr. Claudine Durán MD Primary Care Provider Active Fadia Pizarro PROCESS TRAINER, PROCESS TRAINER-C Attending Provider Active Team Status: Inactive Member Role Status Dates Dr. Claudine Durán MD Primary Care Provider Active Dr. Zaynab Pina MD Attending Provider Active Foreign Broadcast Specialist Relationship Specialty Start Date End Date Claudine Durán MD [address] [facility] [place] [address] PCP - General Internal Medicine 03/02/16 Will Hurley [address] [facility] [place] [address] Referring Rheumatology 04/09/18 Ilda Miller, PAULA [address] [place] [address] Director Digital Strategy 07/27/22 Foreign Broadcast Specialist Relationship Specialty Start Date End Date Claudine Durán MD [address] [place] [address] PCP - General Internal Medicine 03/02/16 Will Hurley [address] [facility] [place] [address] Referring Rheumatology 04/09/18 Ilda Miller RN [address] [place] [address] Director Digital Strategy 07/27/22 Foreign Broadcast Specialist Relationship Specialty Start Date End Date Claudine Durán MD [address] [place] [address] PCP - General Internal Medicine 03/02/16 Will Hurley [address] [facility] [place] [address] Referring Rheumatology 04/09/18 Ilda Miller RN [address] [place] [address] Director Digital Strategy 07/27/22 Foreign Broadcast Specialist Relationship Specialty Start Date End Date Claudine Durán MD [address] [facility] [place] [address] PCP - General Internal Medicine 03/02/16 Will Hurley [address] [facility] [address] Referring Rheumatology 04/09/18 Ilda Miller, PAULA [address] [place] [address] Director Digital Strategy 07/27/22 Foreign Broadcast Specialist Relationship Specialty Start Date End Date Claudine Durán MD [address] [place] [address] PCP - General Internal Medicine 03/02/16 Will Hurley [address] [facility] [address] Referring Rheumatology 04/09/18 Ilda Miller RN [address] [place] [address] Director Digital Strategy 07/27/22 Foreign Broadcast Specialist Relationship Specialty Start Date End Date Claudine Durán MD [address] [place] [address] PCP - General Internal Medicine 03/02/16 Will Hurley [address] [facility] [address] Referring Rheumatology 04/09/18 Ilda Miller, PAULA [address] [place] [address] Director Digital Strategy 07/27/22 Foreign Broadcast Specialist Relationship Specialty Start Date End Date Claudine Durán MD [address] [place], [place] 871571 PCP - General Internal Medicine 03/02/16 Will Hurley [address] [facility] [place] [address] Referring Rheumatology 04/09/18 Ilda Miller, RN [address] [place] [address] Director Digital Strategy 07/27/22 Foreign Broadcast Specialist Relationship Specialty Start Date End Date Claudine Durán MD [address] [place], [place] 613151 PCP - General Internal Medicine 03/02/16 Will Hurley [address] [facility] [place] [address] Referring Rheumatology 04/09/18 Ilda Miller RN [address] [place] [address] Director Digital Strategy 07/27/22 Foreign Broadcast Specialist Relationship Specialty Start Date End Date Claudine Durán MD [address] [place] [address] PCP - General Internal Medicine 03/02/16 Will Hurley [address] [facility] [place] [address] Referring Rheumatology 04/09/18 Ilda Miller, PAULA [address] [place] [address] Director Digital Strategy 07/27/22 Foreign Broadcast Specialist Relationship Specialty Start Date End Date Claudine Durán MD [address] [place] [address] PCP - General Internal Medicine 03/02/16 Will Hurley [address] [place] [facility] [place] [address] Referring Rheumatology 04/09/18 Ilda Miller, RN [address] [facility] [place] [address] Director Digital Strategy 07/27/22 Foreign Broadcast Specialist Relationship Specialty Start Date End Date Claudine Durán MD [address] [facility] [place] [address] PCP - General Internal Medicine 03/02/16 Will Hurley [address] [facility] [place] [place] [address] Referring Rheumatology 04/09/18 Ilda Miller, PAULA [address] [place] [address] Director Digital Strategy 07/27/22 Foreign Broadcast Specialist Relationship Specialty Start Date End Date Claudine Durán MD [address] [place] [address] PCP - General Internal Medicine 03/02/16 Will Hurley [address] [facility] [place] [address] Referring Rheumatology 04/09/18 Ilda Miller, PAULA [address] [place] [address] Director Digital Strategy 07/27/22 Foreign Broadcast Specialist Relationship Specialty Start Date End Date Claudine Durán MD [address] [place] [address] PCP - General Internal Medicine 03/02/16 Will Hurley [address] [facility] [address] Referring Rheumatology 04/09/18 Ilda Miller, RN [address] [place] [address] Director Digital Strategy 07/27/22 Foreign Broadcast Specialist Relationship Specialty Start Date End Date Claudine Durán MD [address] [facility], [place] [address] PCP - General Internal Medicine 03/02/16 Will Hurley [address] [facility] [place] [address] Referring Rheumatology 04/09/18 Ilda Miller RN [address] [place] [address] Director Digital Strategy 07/27/22 Foreign Broadcast Specialist Relationship Specialty Start Date End Date Claudine Durán MD [address] [place], [place] 247741 PCP - General Internal Medicine 03/02/16 Will Hurley [address] [facility] [place] [address] Referring Rheumatology 04/09/18 Ilda Miller, PAULA [address] [place] [address] Director Digital Strategy 07/27/22 Foreign Broadcast Specialist Relationship Specialty Start Date End Date Claudine Durán MD [address] [facility], [place] [address] PCP - General Internal Medicine 03/02/16 Will Hurley [address] [facility] [place] [place] [address] Referring Rheumatology 04/09/18 Ilda Miller, RN [address] [place] [address] Director Digital Strategy 07/27/22 Foreign Broadcast Specialist Relationship Specialty Start Date End Date Claudine Durán MD [address] [place] [address] PCP - General Internal Medicine 03/02/16 Will Hurley [address] [facility] [place] [place] [address] Referring Rheumatology 04/09/18 Ilda Miller RN [address] [place] [address] Director Digital Strategy 07/27/22 Foreign Broadcast Specialist Relationship Specialty Start Date End Date Claudine Durán MD [address] [place] [address] PCP - General Internal Medicine 03/02/16 Will Hurley [address] [facility] [place] [address] Referring Rheumatology 04/09/18 Ilda Miller, PAULA [address] [place] [address] Director Digital Strategy 07/27/22 Foreign Broadcast Specialist Relationship Specialty Start Date End Date Claudine Durán MD [address] [place], [place] 461331 PCP - General Internal Medicine 03/02/16 Will Hurley [address] [facility] [place] [address] Referring Rheumatology 04/09/18 Ilda Miller RN [address] [place] [address] Director Digital Strategy 07/27/22 Foreign Broadcast Specialist Relationship Specialty Start Date End Date Claudine Durán MD [address] [facility] [place] [address] PCP - General Internal Medicine 03/02/16 Will Hurley [address] [facility] [place] [address] Referring Rheumatology 04/09/18 Ilda Miller RN [address] [place] [address] Director Digital Strategy 07/27/22 Foreign Broadcast Specialist Relationship Specialty Start Date End Date Claudine Durán MD [address] [facility] [place] [address] PCP - General Internal Medicine 03/02/16 Will Hurley [address] [facility] [place] [address] Referring Rheumatology 04/09/18 Ilda Miller RN [address] [place] [address] Director Digital Strategy 07/27/22 Foreign Broadcast Specialist Relationship Specialty Start Date End Date Claudine Durán MD [address] [facility] [place] [address] PCP - General Internal Medicine 03/02/16 Will Hurley [address] [facility] [place] [address] Referring Rheumatology 04/09/18 Ilda Miller RN [address] [facility] [place] [address] Director Digital Strategy 07/27/22 Foreign Broadcast Specialist Relationship Specialty Start Date End Date Claudine Durán MD [address] [place] [address] PCP - General Internal Medicine 03/02/16 Will Hurley [address] [facility] [place] [address] Referring Rheumatology 04/09/18 Ilda Miller RN [address] [place] [address] Director Digital Strategy 07/27/22 Foreign Broadcast Specialist Relationship Specialty Start Date End Date Claudine Durán MD [address] [place] [address] PCP - General Internal Medicine 03/02/16 Will Hurley [address] [facility] [place] [address] Referring Rheumatology 04/09/18 Ilda Miller RN [address] [facility] [place] [address] Director Digital Strategy 07/27/22 Foreign Broadcast Specialist Relationship Specialty Start Date End Date Claudine Durán MD [address] [place] [address] PCP - General Internal Medicine 03/02/16 Will Hurley [address] [facility] [place] [address] Referring Rheumatology 04/09/18 Ilda Miller RN [address] [facility], [place] 0349431 Director Digital Strategy 07/27/22 Foreign Broadcast Specialist Relationship Specialty Start Date End Date Claudine Durán MD [address] [place], [place] [address] PCP - General Internal Medicine 03/02/16 Will Hurley [address] [facility], [place] [address]37[address] Referring Rheumatology 04/09/18 Lulú Ramos RN [address] [facility] [place] [address] Director Digital Strategy Family Medicine 12/20/21 Foreign Broadcast Specialist Relationship Specialty Start Date End Date Claudine Durán MD [address] [place], [place] 831131 PCP - General Internal Medicine 03/02/16 Will Hurley [address] [facility] [place], [place] [address] Referring Rheumatology 04/09/18 Ilda Miller RN [address] [place] [address] Director Digital Strategy 07/27/22 Foreign Broadcast Specialist Relationship Specialty Start Date End Date Claudine Durán MD [address] [place], [place] 966261 PCP - General Internal Medicine 03/02/16 Will Hurley [address] [facility] [address] Referring Rheumatology 04/09/18 Ilda Miller RN [address] [place] [address] Director Digital Strategy 07/27/22 Foreign Broadcast Specialist Relationship Specialty Start Date End Date Claudine Durán MD [address] [place] [address] PCP - General Internal Medicine 03/02/16 Will Hurley [address] [facility] [place] [address] Referring Rheumatology 04/09/18 Ilda Miller RN [address] [place] [address] Director Digital Strategy 07/27/22 Foreign Broadcast Specialist Relationship Specialty Start Date End Date Claudine Durán MD [address] [place] [address] PCP - General Internal Medicine 03/02/16 Will Hurley [address] [facility] [place] [address] Referring Rheumatology 04/09/18 Ilda Miller RN [address] [place] [address] Director Digital Strategy 07/27/22 Foreign Broadcast Specialist Relationship Specialty Start Date End Date Claudine Durán MD [address] [place] [address] PCP - General Internal Medicine 03/02/16 Will Hurley [address] [facility] [place] [place] [address] Referring Rheumatology 04/09/18 Ilda Miller RN [address] [place] [address] Director Digital Strategy 07/27/22 Foreign Broadcast Specialist Relationship Specialty Start Date End Date Claudine Durán MD [address] [place] [address] PCP - General Internal Medicine 03/02/16 Will Hurley [address] [place] [facility] [place] [address] Referring Rheumatology 04/09/18 Ilda Miller, PAUAL [address] [place], [place] [id number] Director Digital Strategy 07/27/22 Jimbo Swanson APRN.MUSHROOM GROWTH MEDIA MIXER [address] [place] [address] Client Specialist Internal Medicine 01/28/24 Twyla Cuevas APRN.AGENT BASED MODELER [address] [place] [address] Client Specialist Internal Medicine 01/28/24 Foreign Broadcast Specialist Relationship Specialty Start Date End Date Claudine Durán MD [address] [place] [address] PCP - General Internal Medicine 03/02/16 Will Hurley [address] [facility] [place] [address] Referring Rheumatology 04/09/18 Ilda Miller, PAULA [address] [place], [place] 4643831 Director Digital Strategy 07/27/22 Jimbo Swanson APRN.MUSHROOM GROWTH MEDIA MIXER [address] [place] [address] Client Specialist Internal Medicine 01/28/24 Twyla Cuevas APRN.AGENT BASED MODELER [address] [place] [address] Client Specialist Internal Medicine 01/28/24 Foreign Broadcast Specialist Relationship Specialty Start Date End Date Claudine Durán MD [address] [place] [address] PCP - General Internal Medicine 03/02/16 Will Hurley [address] [facility], [place] [address] Referring Rheumatology 04/09/18 Jimbo Swanson APRN.MUSHROOM GROWTH MEDIA MIXER [address] [place] [address] Client Specialist Internal Medicine 01/28/24 Twyla Cuevas APRN.AGENT BASED MODELER [address] [place] [address] [facility] Internal Medicine 01/28/24 Foreign Broadcast Specialist Relationship Specialty Start Date End Date Claudine Durán MD [address] [place] [address] PCP - General Internal Medicine 03/02/16 Will Hurley [address] [place] [facility] [place] [address] Referring Rheumatology 04/09/18 Jimbo Swanson APRN.MUSHROOM GROWTH MEDIA MIXER [address] [place] [address] Client Specialist Internal Medicine 01/28/24 Twyla Cuevas APRN.AGENT BASED MODELER [address] [place] [address] Client Specialist Internal Medicine 01/28/24 Foreign Broadcast Specialist Relationship Specialty Start Date End Date Claudine Durán MD [address] [place] [address] PCP - General Internal Medicine 03/02/16 Will Hurley [address] [place] [address] Referring Rheumatology 04/09/18 Jimbo Swanson APRN.MUSHROOM GROWTH MEDIA MIXER [address] [place] [address] Client Specialist Internal Medicine 01/28/24 Twyla Cuevas SEAM SEWER.AGENT BASED MODELER [address] [place] [address] Client Specialist Internal Medicine 01/28/24 Foreign Broadcast Specialist Relationship Specialty Start Date End Date Claudine Durán MD [address] [place] [address] PCP - General Internal Medicine 03/02/16 Will Hurley [address] [facility] [place] [address] Referring Rheumatology 04/09/18 Jimbo Swanson APRN.MUSHROOM GROWTH MEDIA MIXER [address] [place], [place] 965121 Client Specialist Internal Medicine 01/28/24 Twyla Cuevas SEAM SEWER.AGENT BASED MODELER [address] [place], [place] 960311 Client Specialist Internal Medicine 01/28/24 Foreign Broadcast Specialist Relationship Specialty Start Date End Date Claudine Durán MD [address] [place], [place] 832421 PCP - General Internal Medicine 03/02/16 Will Hurley [address] [place], [place] 258773 Referring Rheumatology 04/09/18 Jimbo Swanson, SEAM SEWER.MUSHROOM GROWTH MEDIA MIXER [address] [place] [address] Client Specialist Internal Medicine 01/28/24 Twyla Cuevas APRN.AGENT BASED MODELER [address] [place] [place] [address] [facility] Internal Medicine 01/28/24 Foreign Broadcast Specialist Relationship Specialty Start Date End Date Claudine Durán MD [address] [place] [address] PCP - General Internal Medicine 03/02/16 Will Hurley [address] [place] [address] Referring Rheumatology 04/09/18 Jimbo Swanson, SEAM SEWER.MUSHROOM GROWTH MEDIA MIXER [address] [place] [address] [facility] Internal Medicine 01/28/24 Twyla Cuevas APRN.AGENT BASED MODELER [address] [place] [address] [facility] Internal Medicine 01/28/24 Foreign Broadcast Specialist Relationship Specialty Start Date End Date Claudine Durán MD [address] [facility] [place] [address] PCP - General Internal Medicine 03/02/16 Will Hurley [address] [facility] [place] [address] Referring Rheumatology 04/09/18 Jimbo Swanson, SEAM SEWER.MUSHROOM GROWTH MEDIA MIXER [address] [facility] [place] [address] Client Specialist Internal Medicine 01/28/24 Twyla Cuevas APRN.AGENT BASED MODELER [address] [place] [address] Client Specialist Internal Medicine 01/28/24 Foreign Broadcast Specialist Relationship Specialty Start Date End Date Claudine Durán MD [address] [facility] [place] [address] PCP - General Internal Medicine 03/02/16 Will Hurley [address] [facility] [address] Referring Rheumatology 04/09/18 Jimbo Swanson, SEAM SEWER.MUSHROOM GROWTH MEDIA MIXER [address] [facility] [place] [address] Client Specialist Internal Medicine 01/28/24 Twyla Cuevas APRN.AGENT BASED MODELER [address] [facility] [place] [address] Client Specialist Internal Medicine 01/28/24 Foreign Broadcast Specialist Relationship Specialty Start Date End Date Claudine Durán MD [address] [place] [address] PCP - General Internal Medicine 03/02/16 Will Hurley [address] [facility] [place] [address] Referring Rheumatology 04/09/18 Jimbo Swanson, CONNIE.MUSHROOM GROWTH MEDIA MIXER [address] [place] [address] Client Specialist Internal Medicine 01/28/24 Twyla Cuevas APRN.AGENT BASED MODELER [address] [place] [address] Client Specialist Internal Medicine 01/28/24 Foreign Broadcast Specialist Relationship Specialty Start Date End Date Claudine Durán MD [address] [place] [address] PCP - General Internal Medicine 03/02/16 Will Hurley [address] [place] [address] Referring Rheumatology 04/09/18 Jimbo Swanson, SEAM SEWER.MUSHROOM GROWTH MEDIA MIXER [address] [place] [address] Client Specialist Internal Medicine 01/28/24 Twyla Cuevas SEAM SEWER.AGENT BASED MODELER [address] [place] [address] Client Specialist Internal Medicine 01/28/24 Foreign Broadcast Specialist Relationship Specialty Start Date End Date Claudine Durán MD [address] [place] [address] PCP - General Internal Medicine 03/02/16 Will Hurley [address] [facility] [place] [place] [address] Referring Rheumatology 04/09/18 Jimbo Swanson, SEAM SEWER.MUSHROOM GROWTH MEDIA MIXER [address] [place] [address] Client Specialist Internal Medicine 01/28/24 Twyla Cuevas SEAM SEWER.AGENT BASED MODELER [address] [place] [address] [facility] Internal Medicine 01/28/24 Foreign Broadcast Specialist Relationship Specialty Start Date End Date Claudine Durán MD [address] [place] [address] PCP - General Internal Medicine 03/02/16 Will Hurley [address] [facility] [place] [address] Referring Rheumatology 04/09/18 Jimbo Swanson, SEAM SEWER.MUSHROOM GROWTH MEDIA MIXER [address] [place] [address] Client Specialist Internal Medicine 01/28/24 Twyla Cuevas SEAM SEWER.AGENT BASED MODELER [address] [place] [address] [facility] Internal Medicine 01/28/24 Foreign Broadcast Specialist Relationship Specialty Start Date End Date Claudine Durán MD [address] [place] [address] PCP - General Internal Medicine 03/02/16 Will Hurley [address] [facility] [place] [address] Referring Rheumatology 04/09/18 Jimbo Swanson, CONNIE.MUSHROOM GROWTH MEDIA MIXER [address] [place] [address] Client Specialist Internal Medicine 01/28/24 Twyla Cuevas APRN.AGENT BASED MODELER [address] [place] [address] Client Specialist Internal Medicine 01/28/24 Foreign Broadcast Specialist Relationship Specialty Start Date End Date Claudine Durán MD [address] [place] [address] PCP - General Internal Medicine 03/02/16 Will Hurley [address] [facility] [place] [address] Referring Rheumatology 04/09/18 Jimbo Swanson, CONNIE.MUSHROOM GROWTH MEDIA MIXER [address] [place] [address] Client Specialist Internal Medicine 01/28/24 Twyla Cuevas APRN.AGENT BASED MODELER [address] [place] [address] Client Specialist Internal Medicine 01/28/24 Foreign Broadcast Specialist Relationship Specialty Start Date End Date Claudine Durán MD [address] [place] [address] PCP - General Internal Medicine 03/02/16 Will Hurley [address] [place] [address] Referring Rheumatology 04/09/18 Jimbo Swanson APRN.MUSHROOM GROWTH MEDIA MIXER [address] [place] [address] [facility] Internal Medicine 01/28/24 Twyla Cuevas APRN.AGENT BASED MODELER [address] [place] [address] [facility] Internal Medicine 01/28/24 Foreign Broadcast Specialist Relationship Specialty Start Date End Date Claudine Durán MD [address] [place] [address] PCP - General Internal Medicine 03/02/16 Will Hurley [address] [place] [address] Referring Rheumatology 04/09/18 Jimbo Swanson APRN.MUSHROOM GROWTH MEDIA MIXER [address] [place] [address] [facility] Internal Medicine 01/28/24 Twyla Cuevas APRN.AGENT BASED MODELER [address] [place] [address] [facility] Internal Medicine 01/28/24 Bartolome Francis MD [address] [place] [address] Surgeon Cardiac Surg 04/02/24 Juvencio Saeed MD [address] [place] [address] Primary Staff Physician Cardiology 04/02/24 Foreign Broadcast Specialist Relationship Specialty Start Date End Date Claudine Durán MD [address] [place], [place] 513051 PCP - General Internal Medicine 03/02/16 Will Hurley [address] [facility] [place] 430383 Referring Rheumatology 04/09/18 Jimbo Swanson, SEAM SEWER.MUSHROOM GROWTH MEDIA MIXER [address] [place], [place] 025641 Client Specialist Internal Medicine 01/28/24 Twyla Cuevas SEAM SEWER.AGENT BASED MODELER [address] [place] [address] Client Specialist Internal Medicine 01/28/24 Bartolome Francis MD [address] [place], [place] 2101495 Surgeon Cardiac Surg 04/02/24 Juvencio Saeed MD [address] [place] [address] Primary Staff Physician Cardiology 04/02/24 Foreign Broadcast Specialist Relationship Specialty Start Date End Date Claudine Durán MD [address] [place] [address] PCP - General Internal Medicine 03/02/16 Will Hurley [address] [place] [address] Referring Rheumatology 04/09/18 Jimbo Swanson, SEAM SEWER.MUSHROOM GROWTH MEDIA MIXER [address] [place], [place] 461431 [facility] Internal Medicine 01/28/24 Twyla Cuevas APRN.AGENT BASED MODELER [address] [place], [place] 105571 [facility] Internal Medicine 01/28/24 Bartolome Francis MD [address] [place], [place] 6664895 Surgeon Cardiac Surg 04/02/24 Juvencio Saeed MD [address] [place], [place] 8555295 Primary Staff Physician Cardiology 04/02/24 Foreign Broadcast Specialist Relationship Specialty Start Date End Date Claudine Durán MD [address] [place] [address] PCP - General Internal Medicine 03/02/16 Will Hurley [address] [place] [address] Referring Rheumatology 04/09/18 Jimbo Swanson APRN.MUSHROOM GROWTH MEDIA MIXER [address] [place] [address] [facility] Internal Medicine 01/28/24 Twyla Cuevas SEAM SEWER.AGENT BASED MODELER [address] [place] [address] [facility] Internal Medicine 01/28/24 Bartolome Francis MD [address] [place], [place] 6004995 Surgeon Cardiac Surg 04/02/24 Juvencio Saeed MD [address] [place], [place] 5023595 Primary Staff Physician Cardiology 04/02/24 Foreign Broadcast Specialist Relationship Specialty Start Date End Date Claudine Durán MD [address] [place], [place] 088901 PCP - General Internal Medicine 03/02/16 Will Hurley [address] [place], [place] 703323 Referring Rheumatology 04/09/18 Jimbo Swanson APRN.MUSHROOM GROWTH MEDIA MIXER [address] [place] [address] 926[address] Client Specialist Internal Medicine 01/28/24 Twyla Cuevas APRN.AGENT BASED MODELER [address] [place] [address]121 Client Specialist Internal Medicine 01/28/24 Bartolome Francis MD [address] [place], [place] 8665395 Surgeon Cardiac Surg 04/02/24 Juvencio Saeed MD [address] [place] [address] Primary Staff Physician Cardiology 04/02/24 Pili Benitez, production potterDirector Digital Strategy 04/11/24 Foreign Broadcast Specialist Relationship Specialty Start Date End Date Claudine Durán MD [facility] [place], [place] 534451 PCP - General Internal Medicine 03/02/16 Will Hurley [address] [place], [place] 039283 Referring Rheumatology 04/09/18 Jimbo Swanson, SEAM SEWER.MUSHROOM GROWTH MEDIA MIXER [address] [place], [place] 769541 [facility] Internal Medicine 01/28/24 Twyla Cuevas SEAM SEWER.AGENT BASED MODELER [address] [place], [place] 349991 [facility] Internal Medicine 01/28/24 Bartolome Francis MD [address] [place], [place] 3266895 Surgeon Cardiac Surg 04/02/24 Juvencio Saeed MD [address] [place], [place] 6614795 Primary Staff Physician Cardiology 04/02/24 Pili Benitez, production potterDirector Digital Strategy 04/11/24 Foreign Broadcast Specialist Relationship Specialty Start Date End Date Claudine Durán MD [address] [place], [place] 822671 PCP - General Internal Medicine 03/02/16 Will Hurley [address] [place], [place] 405553 Referring Rheumatology 04/09/18 Jimbo Swanson, SEAM SEWER.MUSHROOM GROWTH MEDIA MIXER [address] [place] [address] [facility] Internal Medicine 01/28/24 Twyla Cuevas SEAM SEWER.AGENT BASED MODELER [address] [place] [address] [facility] Internal Medicine 01/28/24 Bartolome Francis MD [address] [place] [address] Surgeon Cardiac Surg 04/02/24 Juvencio Saeed MD [address] [place] [address] Primary Staff Physician Cardiology 04/02/24 Pili Benitez RN Director Digital Strategy 04/11/24 Foreign Broadcast Specialist Relationship Specialty Start Date End Date Claudine Durán MD [address] [place], [place] 449741 PCP - General Internal Medicine 03/02/16 Will Hurley [address] [place], [place] 978243 Referring Rheumatology 04/09/18 Jimbo Swanson, SEAM SEWER.MUSHROOM GROWTH MEDIA MIXER [address] [place], [place] 340511 Client Specialist Internal Medicine 01/28/24 Twyla Cuevas, SEAM SEWER.AGENT BASED MODELER [address] [place] [address] Client Specialist Internal Medicine 01/28/24 Bartolome Francis MD [address] [place] [address] Surgeon Cardiac Surg 04/02/24 Juvencio Saeed MD [address] [place], [place] 6576795 Primary Staff Physician Cardiology 04/02/24 Pili Benitez, production potterDirector Digital Strategy 04/11/24 Foreign Broadcast Specialist Relationship Specialty Start Date End Date Claudine Durán MD [address] [place] [address] PCP - General Internal Medicine 03/02/16 Will Hurley [address] [facility] [place] [address] Referring Rheumatology 04/09/18 Jimbo wSanson, SEAM SEWER.MUSHROOM GROWTH MEDIA MIXER [address] [place] [address] Client Specialist Internal Medicine 01/28/24 Twyla Cuevas SEAM SEWER.AGENT BASED MODELER [address] [place] [address] Client Specialist Internal Medicine 01/28/24 Bartolome Francis MD [address] [place] [address] Surgeon Cardiac Surg 04/02/24 Juvencio Saeed MD [address] [place] [address] Primary Staff Physician Cardiology 04/02/24 Pili Benitez, production potterDirector Digital Strategy 04/11/24 Foreign Broadcast Specialist Relationship Specialty Start Date End Date Claudine Durán MD [address] [place] [address] PCP - General Internal Medicine 03/02/16 Will Hurley [address] [facility] [place] [address] Referring Rheumatology 04/09/18 Jimbo Swanson, SEAM SEWER.MUSHROOM GROWTH MEDIA MIXER [address] [place] [address] Client Specialist Internal Medicine 01/28/24 Twyla Cuevas APRN.AGENT BASED MODELER [address] [place] [address] Client Specialist Internal Medicine 01/28/24 Bartolome Francis MD [address] [place], [place] 2142295 Surgeon Cardiac Surg 04/02/24 Juvencio Saeed MD [address] [place] [address] Primary Staff Physician Cardiology 04/02/24 Pili Benitez, production potterDirector Digital Strategy 04/11/24 Foreign Broadcast Specialist Relationship Specialty Start Date End Date Claudine Durán MD [address] [place] [address] PCP - General Internal Medicine 03/02/16 Will Hurley [address] [place] [address] Referring Rheumatology 04/09/18 Jimbo Swanson APRN.MUSHROOM GROWTH MEDIA MIXER [address] [place] [address] Client Specialist Internal Medicine 01/28/24 Twyla Cuevas APRN.AGENT BASED MODELER [address] [place] [address] Client Specialist Internal Medicine 01/28/24 Bartolome Francis MD [address] [facility] [place] [place] 3903395 Surgeon Cardiac Surg 04/02/24 Juvencio Saeed MD [address] [place] [address] Primary Staff Physician Cardiology 04/02/24 Pili Benitez, production potterDirector Digital Strategy 04/11/24 Foreign Broadcast Specialist Relationship Specialty Start Date End Date Claudine Durán MD [address] [place], [place] 541281 PCP - General Internal Medicine 03/02/16 Will Hurley [address] [place], [place] 561033 Referring Rheumatology 04/09/18 Jimbo Swanson APRN.MUSHROOM GROWTH MEDIA MIXER [address] [place] [address] Client Specialist Internal Medicine 01/28/24 Twyla Cuevas APRN.AGENT BASED MODELER [address] [place] [address] Client Specialist Internal Medicine 01/28/24 Bartolome Francis MD [address] [place] [address] Surgeon Cardiac Surg 04/02/24 Juvencio Saeed MD [address] [place], [place] 7601595 Primary Staff Physician Cardiology 04/02/24 Pili Benitez, production potterDirector Digital Strategy 04/11/24 Foreign Broadcast Specialist Relationship Specialty Start Date End Date Claudine Durán MD [address] [place] [address] PCP - General Internal Medicine 03/02/16 Will Hurley [address] [facility] [facility] [place] 562153 Referring Rheumatology 04/09/18 Jimbo Swanson, CONNIE.MUSHROOM GROWTH MEDIA MIXER [address] [place] [address] Client Specialist Internal Medicine 01/28/24 Twyla Cuevas SEAM SEWER.AGENT BASED MODELER [address] [place], [place] 133051 Client Specialist Internal Medicine 01/28/24 Bartolome Francis MD [address] [place], [place] 4158095 Surgeon Cardiac Surg 04/02/24 Juvencio Saeed MD [address] [place], [place] 8770395 Primary Staff Physician Cardiology 04/02/24 Pili Benitez, production potterDirector Digital Strategy 04/11/24 Foreign Broadcast Specialist Relationship Specialty Start Date End Date Claudine Durán MD [address] [place] [address] PCP - General Internal Medicine 03/02/16 Will Hurley [address] [facility] [place] [address] Referring Rheumatology 04/09/18 Jimbo Swanson, CONNIE.MUSHROOM GROWTH MEDIA MIXER [address] [facility] [place] [address] Client Specialist Internal Medicine 01/28/24 Twyla Cuevas SEAM SEWER.AGENT BASED MODELER [address] [place] [address] Client Specialist Internal Medicine 01/28/24 Bartolome Francis MD [address] [place] [address] Surgeon Cardiac Surg 04/02/24 Juvencio Saeed MD [address] [facility] [place] [address] Primary Staff Physician Cardiology 04/02/24 Pili Benitez, production potterDirector Digital Strategy 04/11/24 Pili Benitez, production potter Quiller Operator 05/05/24 Foreign Broadcast Specialist Relationship Specialty Start Date End Date Claudine Durán MD [address] [place] [address] PCP - General Internal Medicine 03/02/16 Will Hurley [address] [place], [place] 95214333 Referring Rheumatology 04/09/18 Jimbo Swanson, CONNIE.MUSHROOM GROWTH MEDIA MIXER [address] [place] [address] Client Specialist Internal Medicine 01/28/24 Twyla Cuevas, SEAM SEWER.AGENT BASED MODELER [address] [place] [address] Client Specialist Internal Medicine 01/28/24 Bartolome Francis MD [address] [facility] [place] [address] Surgeon Cardiac Surg 04/02/24 Juvencio Saeed MD [address] [place] [address] Primary Staff Physician Cardiology 04/02/24 Pili Benitez, production potterDirector Digital Strategy 04/11/24 Pili Benitez, production potter Quiller Operator 05/05/24 Foreign Broadcast Specialist Relationship Specialty Start Date End Date Claudine Durán MD [address] [place], [place] 534541 PCP - General Internal Medicine 03/02/16 Will Hurley [address] [place], [place] 614233 Referring Rheumatology 04/09/18 Jimbo Swanson APRN.MUSHROOM GROWTH MEDIA MIXER [address] [place], [place] 546631 Client Specialist Internal Medicine 01/28/24 Twyla Cuevas SEAM SEWER.AGENT BASED MODELER [address] [place], [place] 793981 Client Specialist Internal Medicine 01/28/24 Bartolome Francis MD [address] [place], [place] 8056895 Surgeon Cardiac Surg 04/02/24 Juvencio Saeed MD [address] [place], [place] 5609295 Primary Staff Physician Cardiology 04/02/24 Pili Benitez, production potterDirector Digital Strategy 04/11/24 Foreign Broadcast Specialist Relationship Specialty Start Date End Date Claudine Durán MD [address] [place] [address] PCP - General Internal Medicine 03/02/16 Will Hurley [address] [facility] [place] [address] Referring Rheumatology 04/09/18 Jimbo Swanson, CONNIE.MUSHROOM GROWTH MEDIA MIXER [address] [facility] [place] [address] Client Specialist Internal Medicine 01/28/24 Twyla Cuevas APRN.AGENT BASED MODELER [address] [place], [place] 885941 Client Specialist Internal Medicine 01/28/24 05/09/24 Bartolome Francis MD [address] [place], [place] 2323095 Surgeon Cardiac Surg 04/02/24 Juvencio Saeed MD [address] [place], [place] 6993895 Primary Staff Physician Cardiology 04/02/24 Pili Benitez, production potterDirector Digital Strategy 04/11/24 Pili Benitez, production potter Quiller Operator 05/05/24 Foreign Broadcast Specialist Relationship Specialty Start Date End Date Claudine Durán MD [address] [place] [address] PCP - General Internal Medicine 03/02/16 Will Hurley [address] [facility] [facility] [place], [place] 215943 Referring Rheumatology 04/09/18 Jimbo Swanson, CONNIE.MUSHROOM GROWTH MEDIA MIXER [address] [facility] [place] [address] Client Specialist Internal Medicine 01/28/24 Bartolome Francis MD [address] [place], [place] 5439995 Surgeon Cardiac Surg 04/02/24 Juvencio Saeed MD [address] [place], [place] 9508495 Primary Staff Physician Cardiology 04/02/24 Pili Benitez, production potterDirector Digital Strategy 04/11/24 Pili Benitez, production potter Quiller Operator 05/05/24 Foreign Broadcast Specialist Relationship Specialty Start Date End Date Claudine Durán MD [address] [place], [place] 738541 PCP - General Internal Medicine 03/02/16 Will Hurley [address] [facility] [place], [place] [address]163 Referring Rheumatology 04/09/18 Jimbo Swanson APRN.MUSHROOM GROWTH MEDIA MIXER [address] [place], [place] 760141 Client Specialist Internal Medicine 01/28/24 Bartolome Francis MD [address] [facility] [place], [place] 7343695 Surgeon Cardiac Surg 04/02/24 Juvencio Saeed MD [address] [place] [address] Primary Staff Physician Cardiology 04/02/24 Pili Benitez, production potterDirector Digital Strategy 04/11/24 Pili Benitez, production potter Quiller Operator 05/05/24 Twyla Cuevas APRN.AGENT BASED MODELER [address] [place], [place] 626701 Client Specialist Internal Medicine 05/13/24 Foreign Broadcast Specialist Relationship Specialty Start Date End Date Claudine Durán MD [address] [place], [place] 484961 PCP - General Internal Medicine 03/02/16 Will Hurley [address] [place], [place] 957873 Referring Rheumatology 04/09/18 Jimbo Swanson APRN.MUSHROOM GROWTH MEDIA MIXER [address] [place], [place] 415701 Client Specialist Internal Medicine 01/28/24 Bartolome Francis MD [address] [place], [place] 2132595 Surgeon Cardiac Surg 04/02/24 Juvencio Saeed MD [address] [place], [place] 0125695 Primary Staff Physician Cardiology 04/02/24 Pili Benitez, production potterDirector Digital Strategy 04/11/24 Pili Benitez, production potter Quiller Operator 05/05/24 Twyla Cuevas, SEAM SEWER.AGENT BASED MODELER [address] [place] [address] Client Specialist Internal Medicine 05/13/24 Foreign Broadcast Specialist Relationship Specialty Start Date End Date Claudine Durán MD [address] [place], [place] 589181 PCP - General Internal Medicine 03/02/16 Will Hurley [address] [place], [place] 216193 Referring Rheumatology 04/09/18 Jimbo Swanson, SEAM SEWER.MUSHROOM GROWTH MEDIA MIXER [address] [place], [place] 283491 Client Specialist Internal Medicine 01/28/24 Bartolome Francis MD [address] [facility] [place] [place] 9940295 Surgeon Cardiac Surg 04/02/24 Juvencio Saeed MD [address] [facility] [place], [place] 8852895 Primary Staff Physician Cardiology 04/02/24 Pili Benitez, production potterDirector Digital Strategy 04/11/24 Pili Benitez, production potter Quiller Operator 05/05/24 Twyla Cuevas, SEAM SEWER.AGENT BASED MODELER [address] [place] [address] Client Specialist Internal Medicine 05/13/24 Foreign Broadcast Specialist Relationship Specialty Start Date End Date Claudine Durán MD [address] [place] [address] PCP - General Internal Medicine 03/02/16 Will Hurley [address] [place] [address] Referring Rheumatology 04/09/18 Jimbo Swanson, SEAM SEWER.MUSHROOM GROWTH MEDIA MIXER [address] [place], [place] 051961 Client Specialist Internal Medicine 01/28/24 Bartolome Francis MD [address] [facility] [place], [place] 7679095 Surgeon Cardiac Surg 04/02/24 Juvencio Saeed MD [address] [place] [address] Primary Staff Physician Cardiology 04/02/24 Pili Benitez, production potterDirector Digital Strategy 04/11/24 Pili Benitez, production potter Quiller Operator 05/05/24 Twyla Cuevas SEAM SEWER.AGENT BASED MODELER [address] [place], [place] 961181 Client Specialist Internal Medicine 05/13/24 Team Status: Active Member [...] Referring Provider Active Start: Ap ril 2024 Foreign Broadcast Specialist Relationship Specialty Start Date End Date Claudine Durán MD [address] [place], [place] 603601 PCP - General Internal Medicine 03/02/16 Will Hurley [address] [facility] [place], [place] 844373 Referring Rheumatology 04/09/18 Jimbo Swanson, CONNIE.MUSHROOM GROWTH MEDIA MIXER [address] [place], [place] 957681 Client Specialist Internal Medicine 01/28/24 Bartolome Francis MD [address] [place], [place] 4827595 Surgeon Cardiac Surg 04/02/24 Juvencio Saeed MD [address] [place], [place] 6969395 Primary Staff Physician Cardiology 04/02/24 Pili Benitez, production potterDirector Digital Strategy 04/11/24 Twyla Cuevas APRN.AGENT BASED MODELER [address] [place], [place] 292931 [facility] Internal Medicine 05/13/24 Foreign Broadcast Specialist Relationship Specialty Start Date End Date Claudine Durán MD [address] [place] [address] PCP - General Internal Medicine 03/02/16 Will Hurley [address] [place], [place] [id number] Referring Rheumatology 04/09/18 Jimbo Swanson APRN.MUSHROOM GROWTH MEDIA MIXER [address] [place] [address] [facility] Internal Medicine 01/28/24 Bartolome Francis MD [address] [place] [address] Surgeon Cardiac Surg 04/02/24 Juvencio Saeed MD [address] [place], [place] 5158195 Primary Staff Physician Cardiology 04/02/24 Pili Benitez, production potterDirector Digital Strategy 04/11/24 Twyla Cuevas APRN.AGENT BASED MODELER [address] [facility] [place] [address] Client Specialist Internal Medicine 05/13/24 Foreign Broadcast Specialist Relationship Specialty Start Date End Date Claudine Durán MD [address] [place], [place] 581291 PCP - General Internal Medicine 03/02/16 Will Hurley [address] [facility] [place] [address] Referring Rheumatology 04/09/18 Jimbo Swanson, CONNIE.MUSHROOM GROWTH MEDIA MIXER [address] [place] [address] Client Specialist Internal Medicine 01/28/24 Bartolome Francis MD [address] [place] [address] Surgeon Cardiac Surg 04/02/24 Juvencio Saeed MD [address] [place] [address] Primary Staff Physician Cardiology 04/02/24 Pili Benitez, production potterDirector Digital Strategy 04/11/24 Twyla Cuevas, SEAM SEWER.AGENT BASED MODELER [address] [place] [address] Client Specialist Internal Medicine 05/13/24 Foreign Broadcast Specialist Relationship Specialty Start Date End Date Claudine Durán MD [address] [place] [address] PCP - General Internal Medicine 03/02/16 Will Hurley [address] [place] [address] Referring Rheumatology 04/09/18 Jimbo Swanson, SEAM SEWER.MUSHROOM GROWTH MEDIA MIXER [address] [place] [address] Client Specialist Internal Medicine 01/28/24 Bartolome Francis MD [address] [facility] [place], [place] [id number] Surgeon Cardiac Surg 04/02/24 Juvencio Saeed MD [address] [place], [place] [id number] Primary Staff Physician Cardiology 04/02/24 Pili Benitez, production potterDirector Digital Strategy 04/11/24 Twyla Cuevas, SEAM SEWER.AGENT BASED MODELER [address] [place] [address] [facility] Internal Medicine 05/13/24 Foreign Broadcast Specialist Relationship Specialty Start Date End Date Claudine Durán MD [address] [place], [place] [address] PCP - General Internal Medicine 03/02/16 Will Hurley [address] [facility] [place] [address] Referring Rheumatology 04/09/18 Jimbo Swanson, SEAM SEWER.MUSHROOM GROWTH MEDIA MIXER [address] [place] [address] Client Specialist Internal Medicine 01/28/24 Bartolome Francis MD [address] [facility] [place], [place] [id number] Surgeon Cardiac Surg 04/02/24 Juvencio Saeed MD [address] [place] [address] Primary Staff Physician Cardiology 04/02/24 Pili Benitez, production potterDirector Digital Strategy 04/11/24 Twyla Cuevas APRN.AGENT BASED MODELER [address] [place], [place] [address] Client Specialist Internal Medicine 05/13/24 Team Status: Inactive Member Role Status Dates Dr. Claudine Durán MD Primary Care Provider Active Start: June 18, 2024 End: June 18, 2024 CHRISTOPHE LOWRY Attending Provider [facility] End: June 18, 2024 CHRISTOPHE LOWRY Referring Provider Active [facility]: [facility] 2024 End: June 18, 2024 Team Status: [...] Ma y 2024 End: July 19, 2024 Foreign Broadcast Specialist Relationship Specialty Start Date End Date Claudine Durán MD [address] [place] [address] PCP - General Internal Medicine 03/02/16 Will Hurley [address] [facility] [place] [address] Referring Rheumatology 04/09/18 Bartolome Francis MD [address] [place], [place] [id number] Surgeon Cardiac Surg 04/02/24 Juvencio Saeed MD [address] [place], [place] [id number] Primary Staff Physician Cardiology 04/02/24 Twyla Cuevas SEAM SEWER.AGENT BASED MODELER [address] [place] [address] Client Specialist Internal Medicine 05/13/24 Jimbo Swanson APRN.MUSHROOM GROWTH MEDIA MIXER [address] [place] [address] [facility] Internal Medicine 07/09/24 Foreign Broadcast Specialist Relationship Specialty Start Date End Date Claudine Durán MD [address] [place] [address] PCP - General Internal Medicine 03/02/16 Will Hurley [address] [place], [place] [address] Referring Rheumatology 04/09/18 Bartolome Francis MD [address] [place], [place] [id number] Surgeon Cardiac Surg 04/02/24 Juvencio Saeed MD [address] [place], [place] [id number] Primary Staff Physician Cardiology 04/02/24 Twyla Cuevas, SEAM SEWER.AGENT BASED MODELER [address] [place] [address] Client Specialist Internal Medicine 05/13/24 Jimbo Sawnson, SEAM SEWER.MUSHROOM GROWTH MEDIA MIXER [address] [facility] [place] [address] Client Specialist Internal Medicine 07/09/24 Foreign Broadcast Specialist Relationship Specialty Start Date End Date Claudine Durán MD [address] [facility] [place] [place] [address] PCP - General Internal Medicine 03/02/16 Will Hurley [address] [facility] [place] [address] Referring Rheumatology 04/09/18 Bartolome Francis MD [address] [place], [place] [id number] Surgeon Cardiac Surg 04/02/24 Juvencio Saeed MD [address] [place], [place] [id number] Primary Staff Physician Cardiology 04/02/24 Twyla Cuevas, SEAM SEWER.AGENT BASED MODELER [address] [facility] [place] [place] [address] Client Specialist Internal Medicine 05/13/24 Jimbo Swanson, SEAM SEWER.MUSHROOM GROWTH MEDIA MIXER [address] [facility] [place] [place] [address] Client Specialist Internal Medicine 07/09/24 Foreign Broadcast Specialist Relationship Specialty Start Date End Date Claudine Durán MD [address] [facility] [place] [place] [address] PCP - General Internal Medicine 03/02/16 Will Hurley [address] [facility] [place] [address] Referring Rheumatology 04/09/18 Bartolome Francis MD [address] [place] [address] Surgeon Cardiac Surg 04/02/24 Juvencio Saeed MD [address] [place], [place] [id number] Primary Staff Physician Cardiology 04/02/24 Twyla Cuevas APRN.AGENT BASED MODELER [address] [place] [address] Client Specialist Internal Medicine 05/13/24 Jimbo Swanson APRN.MUSHROOM GROWTH MEDIA MIXER [address] [place] [address] Client Specialist Internal Medicine 07/09/24 Foreign Broadcast Specialist Relationship Specialty Start Date End Date Claudine Durán MD [address] [place] [address] PCP - General Internal Medicine 03/02/16 Will Hurley [address] [facility] [place] [address] Referring Rheumatology 04/09/18 Bartolome Francis MD [address] [place] [address] Surgeon Cardiac Surg 04/02/24 Juvencio Saeed MD [address] [place] [address] Primary Staff Physician Cardiology 04/02/24 Twyla Cuevas, SEAM SEWER.AGENT BASED MODELER [address] [facility] [place] [place] [address] [facility] Internal Medicine 05/13/24 Jimbo Swanson, CONNIE.MUSHROOM GROWTH MEDIA MIXER [address] [facility] [place] [address] [facility] Internal Medicine 07/09/24 Team Status: Active Member Role/Relationship Status Dates Dr. Claudine Durán MD Primary Care Provider Active Team Status: Inactive Member Role/Relationship Status Dates Dr. Claudine Durán MD Primary Care Provider Active Start: May 28, 2024 End: May 28, 2024 CHRISTOPHE LOWRY Attending Provider Active Start: [facility] 2024 End: May 28, 2024 CHRISTOPHE LOWRY Referring Provider Active Start: [facility] 2024 End: May 28, 2024 Team Status: Inactive Member Role/Relationship Status Dates Dr. Claudine Durán MD Primary Care Provider Active Start: June 18, 2024 End: June 18, 2024 CHRISTOPHE LOWRY Attending Provider Active Start: [facility] 2024 End: June 18, 2024 CHRISTOPHE LOWRY Referring Provider Active Start: [facility] 2024 End: June 18, 2024 Team Status: [...] Ju ne 2024 End: August 18, 2024 Foreign Broadcast Specialist Relationship Specialty Start Date End Date Claudine Durán MD [address] [place], [place] [address] PCP - General Internal Medicine 03/02/16 Will Hurley [address] [place] [address] Referring Rheumatology 04/09/18 Bartolome Francis MD [address] [place], [place] [id number] Surgeon Cardiac Surg 04/02/24 Juvencio Saeed MD [address] [place], [place] [id number] Primary Staff Physician Cardiology 04/02/24 Twyla Cuevas APRN.AGENT BASED MODELER [address] [place], [place] [address] Client Specialist Internal Medicine 05/13/24 Jimbo Swanson APRN.MUSHROOM GROWTH MEDIA MIXER [address] [place], [place] [address] Client Specialist Internal Medicine 07/09/24 Team Status: Active Member [...] Care Provider Active Start: September 01, 2024 Zyanab NOLEN MD Attending Provider Active Start: September [...] 2024 CHRISTOPHE LOWRY Attending Provider Active Start: [facility] 2024 End: June 18, 2024 CHRISTOPHE LOWRY Referring Provider Active Start: [facility] 2024 End: June 18, 2024 Team Status: [...] July 18, 2024 End: July 19, 2024 JUVENCIO, CHRISTOPHE Attending Provider Active Start: Sandy y 2024 [...] Nasrin ne 2024 End: August 18, 2024 Team Status: Inactive Member Role/Relationship Status Dates Dr. Claudine Durán MD Primary Care Provider Active Start: August 20, 2024 End: September 18, 2024 CHRISTOPHE LOWRY Attending Provider Active Start: [facility] 2024 End: September 18, 2024 CHRISTOPHE LOWRY Referring Provider Active Start: [facility] 2024 End: September 18, 2024 Team [...] 2024 End: August 28, 2024 Fadia Pizarro PROCESS TRAINER, PROCESS TRAINER-C Attending Provider Active Start: August 28, 2024 [...] 2024 CHRISTOPHE LOWRY Attending Provider Active Start: [facility] End: July 19, 2024 CHRISTOPHE LOWRY Referring Provider Active Start: Sandy y 2024 End: July 19, 2024 Team [...] CHRISTOPHE LOWRY Attending Provider Active Start: [facility] ly 2024 End: September 18, 2024 CHRISTOPHE LOWRY Referring Provider Active Start: Nas[facility] ly 2024 End: September 18, 2024 Team [...] End: August 28, 2024 Fadia Pizarro NP, PROCESS TRAINER-C Attending Provider Active Start: August 28, 2024 [...] October 19, 2024 End: October 19, 2024 Foreign Broadcast Specialist Relationship Specialty Start Date End Date Claudine Durán MD [address] [place], [place] [address] PCP - General Internal Medicine 03/02/16 Will Hurley [address] [place], [place] [address] Referring Rheumatology 04/09/18 Bartolome Francis MD [address] [place], [place] [id number] Surgeon Cardiac Surg 04/02/24 Juvencio Saeed MD [address] [place], [place] [id number] Primary Staff Physician Cardiology 04/02/24 Twyla Cuevas APRN.AGENT BASED MODELER [address] [place], [place] [id number] Client Specialist Internal Medicine 05/13/24 Jimbo Swanson APRN.MUSHROOM GROWTH MEDIA MIXER [address] [place], [place] [id number] [facility] Internal Medicine 07/09/24 Team Status: Inactive Member [...] 2024 End: October 14, 2024 Fadia Pizarro PROCESS TRAINER, PROCESS TRAINER-C Attending Provider Active Start: October 14, 2024 [...] October 19, 2024 End: October 19, 2024 Foreign Broadcast Specialist Relationship Specialty Start Date End Date Claudine Durán MD [address] [place], [place] [address] PCP - General Internal Medicine 03/02/16 Will Hurley [address] [place] [address] Referring Rheumatology 04/09/18 Bartolome Francis MD [address] [place], [place] [address] Surgeon Cardiac Surg 04/02/24 Juvencio Saeed MD [address] [place], [place] [id number] Primary Staff Physician Cardiology 04/02/24 Twyla Cuevas, SEAM SEWER.AGENT BASED MODELER [address] [place], [place] [address] Client Specialist Internal Medicine 05/13/24 Jimbo Swanson APRN.MUSHROOM GROWTH MEDIA MIXER [address] [place], [place] [address] Client Specialist Internal Medicine 07/09/24 Goals (unrecognized section and [...] BE BASED ON THE PRIMARY CLINICAL RECORDS. [facility]. provides no warranty or guarantee of the accuracy or completeness of information in this document.
[2024-11-12 07:48] LABS: INR Fingerstick 1.5
== END ==
LOC: OLS.ACH 05:00
PROVIDERS: PCP Internal Medicine; Visit Provider Internal Medicine
DX: Z86.711 Personal history of pulmonary embolism (principal)
CPT/HCPCS: 36416; 85610

== ENCOUNTER → 2024-11-15 09:45 | Outpatient (REF) | payer MEDICARE, SELFPAY ==
[2024-11-15 10:10] LABS: Prothrombin Time (Protime)PT. 18.6 SECONDS (11.7-14.9)
== END ==
LOC: OLS.ACH 09:45
PROVIDERS: PCP Internal Medicine; Referring Provider Internal Medicine; Visit Provider Internal Medicine
DX: Z79.01 Long term (current) use of 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 (principal)
CPT/HCPCS: 85610

== ENCOUNTER → 2024-11-24 05:00 | Outpatient (REF) | payer MEDICARE, SELFPAY ==
[2024-11-24 08:15] LABS: INR Fingerstick 2.3
== END ==
LOC: OLS.ACH 05:00
PROVIDERS: PCP Internal Medicine; Visit Provider Internal Medicine
DX: Z86.718 Personal history of other venous thrombosis and embolism (principal)
CPT/HCPCS: 36416; 85610